=== PATIENT | female | born 1945 | race Caucasian/White ===

== ENCOUNTER → 2017-11-02 10:46 | Outpatient (CLI) | payer MEDICARE, SELFPAY ==
--- NOTE | 2017-11-03 05:47 | LEAS_ITS ---
Arterial Study - Arterial Study Arterial Study: Bilateral lower extremity noninvasive arterial exam at rest Patient with nonhealing wound to the right lower extremity Right lower extremity Right low thigh index is 0.95. Calf index is 0.71. The right PT and DP ankle- brachial indices at rest are 0.62 and 0.6 respectively with a digital index of only 0.39. Doppler waveforms of the right posterior tibial and dorsalis pedis are biphasic. The volume pulse recordings do not demonstrate amplification the calf. The ankle waveforms are moderately depressed and the digital waveforms significantly depressed Left lower extremity At rest the left low thigh index is 0.96. Calf index is 0.74. The left PT and DP ankle-brachial indices at rest are 0.680.62 respectively again with a low digital index of 0.33. The left posterior tibial and dorsalis pedis waveforms are biphasic. The volume pulse recordings do not demonstrate amplification the calf. The ankle waveforms are moderately depressed. The digital waveforms are significantly depressed. Impression Findings suggest mild iliofemoral inflow disease bilaterally. Additional findings consistent with significant stenosis or occlusion of bilateral superficial femoral arteries. The resting indices are within the range of vascular claudication however the digital indices and waveforms are significantly depressed consistent with critical ischemia possibly complicated by distal small vessel disease. Erick Coronel M.D., F.A.C.S.
== END ==
PROVIDERS: Family Provider Family Medicine; PCP Family Medicine; Visit Provider Podiatrist
DX: I73.9 Peripheral vascular disease, unspecified (principal); L97.919 Non-pressure chronic ulcer of unspecified part of right lower leg with unspecified severity
CPT/HCPCS: 93923

== ENCOUNTER 2017-11-14 21:51 | Inpatient (IN) | payer MEDICARE, SELFPAY ==
[2017-11-14] VITALS (8 sets, daily range): BP systolic 130–156; BP diastolic 65–78; PULSE 86–117; RESP 16–22; TEMP 36.9–37.1; O2SAT 95–98; BMI 32.9
--- NOTE | 2017-11-14 22:11 | EKG12_ITS ---
Test Reason : CP Blood Pressure : / mmHG Vent. Rate : 116 BPM Atrial Rate : 116 BPM P-R Int : 000 ms QRS Dur : 104 ms QT Int : 346 ms P-R-T Axes : 000 -26 108 degrees QTc Int : 480 ms Atrial fibrillation with Premature ventricular complexes Left ventricular hypertrophy with repolarization abnormality Abnormal ECG Confirmed by TORSTEN UGARTE, MIKE ([id number]), editor producer BERKLEY RAMON ([id number]) on 11/16/2017 1:20:29 PM Referred By: GUILLAUME Confirmed By:MIKE SARMIENTO MD
--- NOTE | 2017-11-14 22:15 | RAD_ITS ---
STUDY: X-RAY CHEST REASON FOR EXAM: Female, 72 years old. Palpitations TECHNIQUE: Single AP portable view of the chest. COMPARISON: 08/02/2015. FINDINGS: Normal lung volumes. There is diffuse hazy density and prominence of the bronchovascular markings in both lungs, most consistent with congestive failure and pulmonary edema.. No focal infiltrates. There is moderate cardiac enlargement. Normal mediastinum and derrick. There is prominence of the pulmonary hilar arteries and peripheral pulmonary arteries, consistent with congestive heart failure (CHF). Normal visualized aortic arch and descending thoracic aorta. Normal visualized thoracic spine. Normal visualized ribs, clavicles, and shoulders. There is no demonstrated abnormality of the visualized soft tissue structures of the upper abdomen. RAD/Chest 1 View (Portable) IMPRESSION: Mild congestion and pulmonary edema. Central vascular congestion. Moderate cardiomegaly. Electronically Signed: Juan Alberto Bello MD at 22:49 EDT , Service support ,
[2017-11-14 22:17] LABS: Absolute Lymphocyte Count 3.28 X10^3/ul (0.83-4.51); Absolute Neutrophil Count 6.6 X10^3/uL (2.0-7.7); Basophil# 0.04 X10^3/uL; Basophil% 0.4 % (0-1); Eosinophil# 0.26 X10^3/uL; Eosinophils% 2.4 % (0-5); Hematocrit 34.2 % (37-47); Hemoglobin 11.5 g/dl (12.0-15.0); Lymphocyte # 3.28 X10^3/ul (4.0); Lymphocyte % 29.7 % (19-41); Mean Corp Hgb Conc 33.6 g/gl (32-36); Mean Corpuscular Hgb 30.2 pg (27.0-32.0); Mean Corpuscular Volume 89.8 fL (81-99); Mean Platelet Vol. 10.2 fl (6.2-12.0); Monocyte# 0.86 X10^3/uL; Monocyte% 7.8 % (0-10); Neutrophil # 6.59 X10^3/uL (2.7-7.7); Neutrophil % 59.4 % (47-70); POSITIVE COUNT NO; POSITIVE DIFFERENTIAL NO; POSITIVE MORPHOLOGY NO; Platelet Count 253 K/mm3 (150-450); RBC Distribution Width CV 15.2 % (11.6-14.6); RBC Distribution Width SD 49.3 fl (35.1-43.9); Red Blood Count 3.81 M/mm3 (4.2-5.4); White Blood Count 11.1 K/mm3 (4.4-11.0)
--- NOTE | 2017-11-14 22:35 | ED.VISSUMM ---
- ER Visit Summary Date of Service: 11/14/17 Chief Complaint: Palpitations and accelerated heart rate with exertional dyspnea History of Present Illness: The patient is a 72 F history of prior CHF and aortic valve replaced on Xarelto. She also has recently been diagnosed with peripheral vascular disease and carotid disease. Patient states this afternoon she walks some steps in an area restaurant and became short of breath. She denies any chest pain. No hemoptysis. Her and her have recently driven back from [place] about a month ago she has by lateral ankle edema. No prior history of PE or DVT and again she is on blood thinners. Physical Examination: Well appearing older female. Vital signs are stable she is tachycardic at 117 pulse ox is 95% on room air no signs of hypoxia. H EENT exam is unremarkable. Neck nontender no lymphadenopathy. Lungs clear to auscultation bilaterally. Heart tachycardic rate about 117. Abdomen is soft and nontender. Normal bowel sounds no peritoneal signs. She is moving all 4 extremities. Calves are nontender. She has trace ankle edema bilaterally. Equal and symmetrical. Neurologically she is awake and alert without focal motor deficits. Test Results: Chest x-ray shows borderline cardiomegaly with what looks like pulmonary edema. Read both by myself the radiologist. CBC shows chronic anemia hemoglobin 11.5. BMP is unremarkable. Bone is normal. D-dimer is normal. BNP is 162. EKG is a tachycardia with most like an accelerated junctional rhythm with PVCs. Emergency Department Course and Treatment: She with tachycardia, exertional dyspnea and ankle edema. Treatment Plan: Patient was ambulated pulse ox stayed around 95% with her heart rate of 115. I do think this patient deserves additional evaluation. She has some type of dysrhythmia and is is junctional versus another etiology. She has exertional dyspnea. She thinks she would warrant have an echocardiogram. She also be given a dose of Lasix for CHF. Spoken to the hospitalist and she will be down to evaluate the patient for admission. Disposition: Admission Impression: Dysrhythmia secondary to acute junctional tachycardia Exertional dyspnea Anticoagulated on Xarelto CHF This note was generated with [email or web address] dictation software. It may contain incorrect words, spelling, and punctuation that were not noted in review of the chart prior to signing ED Disposition - Plan for ED Patient: Chief Complaint: Palpitations Referrals: Mars Hernandez MD [Primary Care Provider] -
[2017-11-14 22:36] LABS: D-Dimer Quantitative (DVT/PE) 0.39 FEU/ug/m (0.27-0.49)
[2017-11-14 22:43] LABS: BNP,B-Type NATRIURETIC PEPTIDE 162.2 pg/mL (0-100)
[2017-11-14 22:44] LABS: Anion Gap 9 (5-15); BUN 18 mg/dL (7-18); BUN/Creat Ratio 15.3 RATIO (10-20); Calcium,Total 8.6 mg/dL (8.5-10.1); Chloride 102 mmol/L (98-107); Creatinine, Serum 1.18 mg/dL (0.55-1.02); EST Glomerular Filtration Rate 48 mL/min (>60); Est Glom Filt Rate - Afr Amer 58 mL/min (>60); Estimated Creatinine Clearance 34.08 ml/min; Glucose 258 mg/dL (74-106); Potassium 4.3 mmol/L (3.5-5.1); Sodium Level 137 mmol/L (136-145); Thyroid Stim Hormone (TSH) 1.51 uIU/mL (0.358-3.74)
--- NOTE | 2017-11-14 23:03 | PCM.HP.STD ---
Problem List (1) Obesity (BMI 30.0-34.9) Status: Chronic (2) PAF (paroxysmal atrial fibrillation) Status: Chronic (3) PAD (peripheral artery disease) Status: Chronic (4) HLD (hyperlipidemia) Status: Chronic Qualifiers: Hyperlipidemia type: unspecified Qualified Code(s): E78.5 - Hyperlipidemia, unspecified (5) Diabetes mellitus type 2 in obese Status: Chronic (6) H/O aortic valve replacement Status: Chronic Comment: 1996 homograftcadaveric (7) HTN (hypertension) Status: Chronic Qualifiers: Hypertension type: essential hypertension Qualified Code(s): I10 - Essential (primary) hypertension (8) Anxiety Status: Chronic (9) Brain aneurysm Status: Chronic Comment: s/p stent and coil placement. (10) CHF exacerbation Status: Acute Qualifiers: Heart failure type: unspecified Qualified Code(s): I50.9 - Heart failure, unspecified (11) Cardiac arrhythmia Status: Acute Qualifiers: Arrhythmia type: unspecified cardiac arrhythmia Qualified Code(s): I49.9 - Cardiac arrhythmia, unspecified History of Present Illness Date of Admission: 11/14/17 Chief Complaint: Palpitations, Dyspnea The patient is a 72 y/o F w/ PMHx: Chronic Normocytic Anemia (Baseline Hgb 11), PAF on anticoagulation w/ hx cardioversion prior sucessfully, PVD/PAD, Carotid Disease, Hx Brain Aneurysm s/p stent and coil, HTN, HLD, 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 Her and her lives the [place] in [place] and return to [place] following. She notes following w/ Dr. Chung; however, he is noted to be leaving the [facility] and she is unsure of whom she will see after. In the ED work-up included T 98.8, heart rate 115, BP 156/78, respiratory rate 22, 95% on room air, CBC with WBC 11.1, hemoglobin 11.5, platelet 253 without shift, d-dimer 0.39, BMP with BUN/creatinine 18/1.18, glucose 258, troponin 0 0.22, BNP 162.2, TSH 1.51, chest x-ray with evidence of mild congestion and pulmonary edema, central vascular congestion, moderate cardiomegaly, EKG w/ ? accelerated junctional w/ PVC. In the ED patient administered lasix 40 mg IV x 1. Past Medical History Past Medical History (Chronic Problems): Chronic Problems (Last Updated 07/01/17 @ 13:45 by Vielka Welch) Obesity (BMI 30.0-34.9) (Chronic) PAF (paroxysmal atrial fibrillation) (Chronic) PAD (peripheral artery disease) (Chronic) Family history of brain aneurysm (Chronic) Anxiety (Chronic) Brain aneurysm (Chronic) s/p stent and coil placement. HLD (hyperlipidemia) (Chronic) Diabetes mellitus type 2 in obese (Chronic) H/O aortic valve replacement (Chronic) 1996 homograftcadaveric HTN (hypertension) (Chronic) Allergies No Known Allergies Allergy (Verified 11/14/17 21:52) Home Medications: Ambulatory Orders Medication Instructions Recorded Amlodipine [Norvasc] 5 mg PO DAILY 07/13/15 Citrucel 1 tab PO BID 07/13/15 Lisinopril [Zestril] 40 mg PO DAILY 07/13/15 Multivitamin [Daily Multiple 1 ea PO DAILY 07/13/15 Vitamin] Omeprazole [Prilosec] 20 mg PO DAILY 07/13/15 Rivaroxaban [Xarelto] 20 mg PO DAILY 07/13/15 Simvastatin [Zocor] 40 mg PO QHS 07/13/15 Sotalol HCl [Sotalol] 40 mg PO DAILY 07/13/15 Sotalol HCl [Sotalol] 80 mg PO QHS 07/13/15 Ubidecarenone [Coq10] 50 mg PO DAILY 07/13/15 Vitamin E 1,000 unit PO DAILY 07/13/15 aspirin 81 mg tablet,delayed 81 mg PO QDAY 07/01/17 release calcium carbonate-vitamin D3 600 400 unit PO DAILY 07/01/17 mg (1,500 mg)-400 unit capsule cholestyramine-aspartame 4 gram 4 g PO BID ea 07/01/17 oral powder for susp in a packet magnesium 250 mg tablet 250 mg PO DAILY 07/01/17 Surgical History: - - Aortic valve replacement bioprosthetic, cadaveric valve, hysterectomy, brain aneurysm coiling and stenting, 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 Alcohol: Occasional Drugs: None - *Family History Maternal History Items: - - Patient notes a maternal family history of valvular heart disease. Paternal History Items: - - Patient notes a paternal family history of coronary artery disease, fatal [place] at age 53. Review of Systems Constitutional: Reports: Fatigue. Denies: Chills, Fever, Weight Change HEENT: Denies: Head Aches, Sinus Congestion, Sinus Drainage Cardiovascular: Reports: Edema, Palpitations. Denies: Chest Pain, Chest Pressure, Chest Tightness, Heaviness, Light Headedness, Orthopnea, Syncope Respiratory: Reports: Shortness of Breath, Shortness of breath at rest, Shortness of breath upon exertion. Denies: Cough, Sputum production, Wheezing Gastrointestinal: Denies: Abdominal Pain, Nausea, Vomiting Genitourinary: Denies: Dysuria Musculoskeletal: Denies: Joint Pain, Joint Tenderness Skin: Reports: Skin Changes. Denies: Rash, Wounds Neurological: Denies: Numbness, Tingling, Focal weakness Psychiatric: Reports: Anxiety. Denies: Depression, Homicidal Ideations, Suicidal Ideations Hematologic/ Lymphatic: Reports: Anemia. Denies: Easy Bruising, Easy Bleeding VTE Information - Inpt Only VTE Present on Admission: No VTE Mechan Device Prophylaxis: SCD's VTE Pharm Prophylaxis ordered?: No Reason prophylaxis not ordered:: Treatment Not Indicated Patient Problems: Active and Suspected Problems (Last Updated 07/01/17 @ 13:45 by Vielka Welch) CHF exacerbation (Acute) Cardiac arrhythmia (Acute) Subjective: Seated upright in the ED bed, fatigued appearance, NAD. Objective: Physical Examination: General: awake, alert, oriented x 3 and cooperative, seated upright in the ED bed in no apparent distress. Skin: normal color, turgor, no icterus, cyanosis except R ankle/distal faust medial recent bx wound. HEENT: AT/NC, EOMI, PERRLA, MMM, no carotid bruits, + JVD noted. Lungs: Diminished BS BL, > bases, moderate effort, no rales, ronchi or wheezing. Heart: Irregular irregular; no gallop, rub audible, SM. Abdomen: soft, obese, NTTP, ND, normal BS, no HSM. Extremities: no cyanosis, clubbing, mild BL ankle 1+. Neurological: patient awake, alert, oriented x 3; cognitive function intact; pupils equally reactive to light and accomodation; cranial nerves II-XII grossly normal, moving all 4 extremities, no focal deficits, strength mild to moderately globally decreased. Psychiatric: affect appears normal, no acute evidence of depressive or anxiety feelings. - Physical Exam Vital Signs Temp Pulse Resp BP Pulse Ox 98.8 F 86 16 145/73 H 98 11/14/17 21:52 11/14/17 22:53 11/14/17 22:53 11/14/17 22:53 11/14/17 22:53 Oxygen Delivery Method Room Air Weight: 180 lb 1.883 oz Body Mass Index (BMI) 32.9 Laboratory Tests Past 24 Hrs 11/14/17 11/14/17 11/14/17 22:00 22:00 22:00 WBC 11.1 H RBC 3.81 L Hgb 11.5 L Hct 34.2 L MCV 89.8 MCH 30.2 MCHC 33.6 RDW 15.2 H RDW Differential 49.3 H Plt Count 253 MPV 10.2 Immature Gran % (Auto) 0.300 Neut % (Auto) 59.4 Lymph % (Auto) 29.7 [place] % (Auto) 7.8 Eos % (Auto) 2.4 Baso % (Auto) 0.4 Absolute Neuts (auto) 6.6 Absolute Lymphs (auto) 3.28 Total Counted Not Reportable D-Dimer Quant (PE/DVT) 0.39 Sodium 137 Potassium 4.3 Chloride 102 Carbon Dioxide 26.0 Anion Gap 9 BUN 18 Creatinine 1.18 H Estim Creat Clear Calc 34.08 Est GFR (MDRD) Af Amer 58 L Est GFR (MDRD) Non-Af 48 L BUN/Creatinine Ratio 15.3 Glucose 258 H Calcium 8.6 Troponin I 0.022 B-Natriuretic Peptide TSH 1.51 11/14/17 22:00 WBC RBC Hgb Hct MCV MCH MCHC RDW RDW Differential Plt Count MPV Immature Gran % (Auto) Neut % (Auto) Lymph % (Auto) [place] % (Auto) Eos % (Auto) Baso % (Auto) Absolute Neuts (auto) Absolute Lymphs (auto) Total Counted D-Dimer Quant (PE/DVT) Sodium Potassium Chloride Carbon Dioxide Anion Gap BUN Creatinine Estim Creat Clear Calc Est GFR (MDRD) Af Amer Est GFR (MDRD) Non-Af BUN/Creatinine Ratio Glucose Calcium Troponin I B-Natriuretic Peptide 162.2 H TSH Assessment/Plan Active and Suspected Problems (Last Updated 07/01/17 @ 13:45 by Vielka Welch) CHF exacerbation (Acute) Cardiac arrhythmia (Acute) The patient is a 72 y/o F w/ PMHx: Chronic Normocytic Anemia (Baseline Hgb 11), PAF on anticoagulation w/ hx cardioversion prior sucessfully, PVD/PAD, Carotid Disease, Hx Brain Aneurysm s/p stent and coil, HTN, HLD, 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 (1) Mild Acute Decompensated CHF, Unclear Type: CXR obtained in the ED w/ mild congestion. Patient administered IV lasix in the ED, will admit to PCU, maintain on cardiac telemetry obtain cardiac enzyme series, obtain serial EKGs, continue gentle IV lasix diuresis, monitor I/Os, maintain on intake restriction, continue medical therapy w/ xarelto, statin, ACEI, on sotaolol as noted. TSH normal. Will obtain magnesium level. Will obtain ECHO. Given history may also need to consider future stress testing. Cardiology consulted, pending. (2) Cardiac arrhythmia, Junctional versus Paroxsymal atrial fibrillation: EKG in ED w/ ? accelerated junctional versus atrial fibrillation, rate only 120s. Will maintain on telemetry, obtain cardiac enzyme serial set, obtain magnesium level, obtain ECHO, TSH level normal. Continue home xarelto total all regimen. (3) Hypertension: Continue home regimen including Norvasc, lisinopril, PRN hydralazine. (4) Hyperlipidemia: Continue home statin regimen. AM FLP. (5) PVD/PAD, Carotid Disease: Following w/ Dr. Coronel with planned upcoming visit secondary to recent vascular evaluation for history of ulcer to RLE x ~ 4 months, now confirmed carcinoma, maintain on xarelto, statin, BP regimen as noted. (6) Chronic normocytic anemia: Admission hemoglobin 11.5, baseline 10-11, stable, trend. (7) Diabetes mellitus type II: Regimen not listed, obtain HgBA1c, ADA diet, accu checks w/ ISS. (8) Valvular Heart Disease: She rheumatic fever in youth, s/p AVR w/ homograft-cadaveric, ECHO pending. (9) RLE Medial Distal Faust/Ankle Ulcer, Carcinoma: Recent evaluation per Dr. Kyle for ulcer ongoing x ~ 4 months, recent Bx w/ carcinoma patient notes w/ pending dermatology intervention. (10) Obesity: Weight loss and lifestyle changes encouraged. (11) Hx Brain Aneurysm: s/p stent and coil, stable. (12) GERD: PPI. (13) DVT prophylaxis: SCDs, Xarelto. Code Visit Inpatient E&M: [id number] Init Hosp L3
--- NOTE | 2017-11-14 23:17 | HP.PCM_ITS ---
Problem List (1) Obesity (BMI 30.0-34.9) Status: Chronic (2) PAF (paroxysmal atrial fibrillation) Status: Chronic (3) PAD (peripheral artery disease) Status: Chronic (4) HLD (hyperlipidemia) Status: Chronic Qualifiers: Hyperlipidemia type: unspecified Qualified Code(s): E78.5 - Hyperlipidemia , unspecified (5) Diabetes mellitus type 2 in obese Status: Chronic (6) H/O aortic valve replacement Status: Chronic Comment: 1997 homograft?cadaveric (7) HTN (hypertension) Status: Chronic Qualifiers: Hypertension type: essential hypertension Qualified Code(s): I10 - Essential (primary) hypertension (8) Anxiety Status: Chronic (9) Brain aneurysm Status: Chronic Comment: s/p stent and coil placement. (10) CHF exacerbation Status: Acute Qualifiers: Heart failure type: unspecified Qualified Code(s): I50.9 - Heart failure, unspecified (11) Cardiac arrhythmia Status: Acute Qualifiers: Arrhythmia type: unspecified cardiac arrhythmia Qualified Code(s): I49.9 - Cardiac arrhythmia, unspecified History of Present Illness Date of Admission: 11/14/17 Chief Complaint: Palpitations, Dyspnea The patient is a 72 y/o F w/ PMHx: Chronic Normocytic Anemia (Baseline Hgb 11), PAF on anticoagulation w/ hx cardioversion prior sucessfully, PVD/PAD, Carotid Disease, Hx Brain Aneurysm s/p stent and coil, HTN, HLD, Valvular 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 ED on 11/14/17 with history of ~ 1 month progressively worsening dyspnea, worsened with exertional with no marked weight change, but mild BL LE edema with no associated chest pain or pressure in addition to onset on day of ED presentation palpitations, recently returned from [place] ~ 1 month prior. Her and her lives the [place] in [place] and return to [place] following. She notes following w/ Dr. Chung; however, he is noted to be leaving the [facility] and she is unsure of whom she will see after. In the ED work- up included T 98.8, heart rate 115, BP 156/78, respiratory rate 22, 95% on room air, CBC with WBC 11.1, hemoglobin 11.5, platelet 253 without shift, d-dimer 0.39, BMP with BUN/creatinine 18/1.18, glucose 258, troponin 0 0.22, BNP 162.2, TSH 1.51, chest x-ray with evidence of mild congestion and pulmonary edema, central vascular congestion, moderate cardiomegaly, EKG w/ ? accelerated junctional w/ PVC. In the ED patient administered lasix 40 mg IV x 1. Past Medical History Past Medical History (Chronic Problems): Chronic Problems (Last Updated 07/01/17 @ 13:45 by Vielka Welch) Obesity (BMI 30.0-34.9) (Chronic) PAF (paroxysmal atrial fibrillation) (Chronic) PAD (peripheral artery disease) (Chronic) Family history of brain aneurysm (Chronic) Anxiety (Chronic) Brain aneurysm (Chronic) s/p stent and coil placement. HLD (hyperlipidemia) (Chronic) Diabetes mellitus type 2 in obese (Chronic) H/O aortic valve replacement (Chronic) 1996 homograft?cadaveric HTN (hypertension) (Chronic) Allergies No Known Allergies Allergy (Verified 11/14/17 21:52) Home Medications: Ambulatory Orders Medication Instructions Recorded Amlodipine [Norvasc] 5 mg PO DAILY 07/13/15 Citrucel 1 tab PO BID 07/13/15 Lisinopril [Zestril] 40 mg PO DAILY 07/13/15 Multivitamin [Daily Multiple 1 ea PO DAILY 07/13/15 Vitamin] Omeprazole [Prilosec] 20 mg PO DAILY 07/13/15 Rivaroxaban [Xarelto] 20 mg PO DAILY 07/13/15 Simvastatin [Zocor] 40 mg PO QHS 07/13/15 Sotalol HCl [Sotalol] 40 mg PO DAILY 07/13/15 Sotalol HCl [Sotalol] 80 mg PO QHS 07/13/15 Ubidecarenone [Coq10] 50 mg PO DAILY 07/13/15 Vitamin E 1,000 unit PO DAILY 07/13/15 aspirin 81 mg tablet,delayed 81 mg PO QDAY 07/01/17 release calcium carbonate-vitamin D3 600 400 unit PO DAILY 07/01/17 mg (1,500 mg)-400 unit capsule cholestyramine-aspartame 4 gram 4 g PO BID ea 07/01/17 oral powder for susp in a packet magnesium 250 mg tablet 250 mg PO DAILY 07/01/17 Surgical History: - - Aortic valve replacement bioprosthetic, cadaveric valve, hysterectomy, brain aneurysm coiling and stenting, 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 Alcohol: Occasional Drugs: None - *Family History Maternal History Items: - - Patient notes a maternal family history of valvular heart disease. Paternal History Items: - - Patient notes a paternal family history of coronary artery disease, fatal PA at age 53. Review of Systems Constitutional: Reports: Fatigue. Denies: Chills, Fever, Weight Change HEENT: Denies: Head Aches, Sinus Congestion, Sinus Drainage Cardiovascular: Reports: Edema, Palpitations. Denies: Chest Pain, Chest Pressure, Chest Tightness, Heaviness, Light Headedness, Orthopnea, Syncope Respiratory: Reports: Shortness of Breath, Shortness of breath at rest, Shortness of breath upon exertion. Denies: Cough, Sputum production, Wheezing Gastrointestinal: Denies: Abdominal Pain, Nausea, Vomiting Genitourinary: Denies: Dysuria Musculoskeletal: Denies: Joint Pain, Joint Tenderness Skin: Reports: Skin Changes. Denies: Rash, Wounds Neurological: Denies: Numbness, Tingling, Focal weakness Psychiatric: Reports: Anxiety. Denies: Depression, Homicidal Ideations, Suicidal Ideations Hematologic/ Lymphatic: Reports: Anemia. Denies: Easy Bruising, Easy Bleeding VTE Information - Inpt Only VTE Present on Admission: No VTE Mechan Device Prophylaxis: SCD's VTE Pharm Prophylaxis ordered?: No Reason prophylaxis not ordered:: Treatment Not Indicated Patient Problems: Active and Suspected Problems (Last Updated 07/01/17 @ 13:45 by Vielka Welch) CHF exacerbation (Acute) Cardiac arrhythmia (Acute) Subjective: Seated upright in the ED bed, fatigued appearance, NAD. Objective: Physical Examination: General: awake, alert, oriented x 3 and cooperative, seated upright in the ED bed in no apparent distress. Skin: normal color, turgor, no icterus, cyanosis except R ankle/distal faust medial recent bx wound. HEENT: AT/NC, EOMI, PERRLA, MMM, no carotid bruits, + JVD noted. Lungs: Diminished BS BL, > bases, moderate effort, no rales, ronchi or wheezing. Heart: Irregular irregular; no gallop, rub audible, SM. Abdomen: soft, obese, NTTP, ND, normal BS, no HSM. Extremities: no cyanosis, clubbing, mild BL ankle 1+. Neurological: patient awake, alert, oriented x 3; cognitive function intact; pupils equally reactive to light and accomodation; cranial nerves II-XII grossly normal, moving all 4 extremities, no focal deficits, strength mild to moderately globally decreased. Psychiatric: affect appears normal, no acute evidence of depressive or anxiety feelings. - Physical Exam Vital Signs Temp Pulse Resp BP Pulse Ox 98.8 F 86 16 145/73 H 98 11/14/17 21:52 11/14/17 22:53 11/14/17 22:53 11/14/17 22:53 11/14/17 22:53 Oxygen Delivery Method Room Air Weight: 180 lb 1.883 oz Body Mass Index (BMI) 32.9 Laboratory Tests Past 24 Hrs 11/14/17 11/14/17 11/14/17 22:00 22:00 22:00 WBC 11.1 H RBC 3.81 L Hgb 11.5 L Hct 34.2 L MCV 89.8 MCH 30.2 MCHC 33.6 RDW 15.2 H RDW Differential 49.3 H Plt Count 253 MPV 10.2 Immature Gran % (Auto) 0.300 Neut % (Auto) 59.4 Lymph % (Auto) 29.7 [place] % (Auto) 7.8 Eos % (Auto) 2.4 Baso % (Auto) 0.4 Absolute Neuts (auto) 6.6 Absolute Lymphs (auto) 3.28 Total Counted Not Reportable D-Dimer Quant (PE/DVT) 0.39 Sodium 137 Potassium 4.3 Chloride 102 Carbon Dioxide 26.0 Anion Gap 9 BUN 18 Creatinine 1.18 H Estim Creat Clear Calc 34.08 Est GFR (MDRD) Af Amer 58 L Est GFR (MDRD) Non-Af 48 L BUN/Creatinine Ratio 15.3 Glucose 258 H Calcium 8.6 Troponin I 0.022 B-Natriuretic Peptide TSH 1.51 11/14/17 22:00 WBC RBC Hgb Hct MCV MCH MCHC RDW RDW Differential Plt Count MPV Immature Gran % (Auto) Neut % (Auto) Lymph % (Auto) [place] % (Auto) Eos % (Auto) Baso % (Auto) Absolute Neuts (auto) Absolute Lymphs (auto) Total Counted D-Dimer Quant (PE/DVT) Sodium Potassium Chloride Carbon Dioxide Anion Gap BUN Creatinine Estim Creat Clear Calc Est GFR (MDRD) Af Amer Est GFR (MDRD) Non-Af BUN/Creatinine Ratio Glucose Calcium Troponin I B-Natriuretic Peptide 162.2 H TSH Assessment/Plan Active and Suspected Problems (Last Updated 07/01/17 @ 13:45 by Vielka Welch) CHF exacerbation (Acute) Cardiac arrhythmia (Acute) The patient is a 72 y/o F w/ PMHx: Chronic Normocytic Anemia (Baseline Hgb 11), PAF on anticoagulation w/ hx cardioversion prior sucessfully, PVD/PAD, Carotid Disease, Hx Brain Aneurysm s/p stent and coil, HTN, HLD, Valvular 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 ED on 11/14/17 with history of ~ 1 month progressively worsening dyspnea, worsened with exertional with no marked weight change, but mild BL LE edema with no associated chest pain or pressure in addition to onset on day of ED presentation palpitations. (1) Mild Acute Decompensated CHF, Unclear Type: CXR obtained in the ED w/ mild congestion. Patient administered IV lasix in the ED, will admit to PCU, maintain on cardiac telemetry obtain cardiac enzyme series, obtain serial EKGs, continue gentle IV lasix diuresis, monitor I/Os, maintain on intake restriction , continue medical therapy w/ xarelto, statin, ACEI, on sotaolol as noted. TSH normal. Will obtain magnesium level. Will obtain ECHO. Given history may also need to consider future stress testing. Cardiology consulted, pending. (2) Cardiac arrhythmia, Junctional versus Paroxsymal atrial fibrillation: EKG in ED w/ ? accelerated junctional versus atrial fibrillation, rate only 120s. Will maintain on telemetry, obtain cardiac enzyme serial set, obtain magnesium level, obtain ECHO, TSH level normal. Continue home xarelto total all regimen. (3) Hypertension: Continue home regimen including Norvasc, lisinopril, PRN hydralazine. (4) Hyperlipidemia: Continue home statin regimen. AM FLP. (5) PVD/PAD, Carotid Disease: Following w/ Dr. Coronel with planned upcoming visit secondary to recent vascular evaluation for history of ulcer to RLE x ~ 4 months, now confirmed carcinoma, maintain on xarelto, statin, BP regimen as noted. (6) Chronic normocytic anemia: Admission hemoglobin 11.5, baseline 10-11, stable , trend. (7) Diabetes mellitus type II: Regimen not listed, obtain HgBA1c, ADA diet, accu checks w/ ISS. (8) Valvular Heart Disease: She rheumatic fever in youth, s/p AVR w/ homograft- cadaveric, ECHO pending. (9) RLE Medial Distal Faust/Ankle Ulcer, Carcinoma: Recent evaluation per Dr. Kyle for ulcer ongoing x ~ 4 months, recent Bx w/ carcinoma patient notes w / pending dermatology intervention. (10) Obesity: Weight loss and lifestyle changes encouraged. (11) Hx Brain Aneurysm: s/p stent and coil, stable. (12) GERD: PPI. (13) DVT prophylaxis: SCDs, Xarelto. Code Visit Inpatient E&M: 11702 Init Hosp L3
[2017-11-14] MEDS: Furosemide 40 MG/4 ML Vial IV (23:28)
--- NOTE | 2017-11-14 23:45 | ECHOD_ITS ---
Reason For Study: ARRHYTHMIA Procedure This was a 2D Doppler, Color Flow transthoracic echocardiogram. Exam performed portable in patient room. Left Ventricle Normal LV size. Left ventricular systolic function is normal. The estimated ejection fraction is 55 %. Transmitral diastolic flow velocities suggest severe (stage 3) diastolic dysfunction. No regional wall motion abnormalities noted. Right Ventricle Normal RV size. Normal systolic function. Atria The left atrium is severely enlarged. The right atrium is mildly enlarged. Mitral Valve Bileaflet diffuse mitral valve thickening. Mild (1+) eccentric mitral valve insufficiency. Tricuspid Valve Normal tricuspid valve. Mild (1+) tricuspid valve insufficiency. Pulmonary artery systolic pressure is 45 mmHg. Mild pulmonary hypertension. Aortic Valve Peak aortic valve gradient 24 mmHg. Mean aortic valve gradient 12 mmHg. Mild (1+) eccentric aortic valve insufficiency. Stable homograft valve. Pulmonic Valve Normal pulmonic valve. Great Vessels Normal aortic root. The pulmonary artery is normal size. Normal inferior vena cava. Pericardium/Pleural No pericardial effusion. MMode/2D Measurements & Calculations LVIDd: 4.8 cm IVSd: 0.92 cm LVOT diam: 2.0 cm LVIDs: 3.5 cm LVPWd: 1.2 cm LVOT area: 3.2 cm2 RVDd: 3.7 cm FS: 26.9 % LAV(MOD-bp): 110.3 ml LA A4 area: 32.8 cm2 RA A4 area: 21.9 cm2 LAV(MOD-bp) Indexed: 61.5 ml/m2 LAV(MOD-sp2): 87.8 ml LAV(MOD-sp4): 132.7 ml Doppler Measurements & Calculations MV E max seferino: 194.4 cm/sec Lat Peak E' Seferino: 9.2 cm/sec Med Peak E' Seferino: 4.9 cm/sec MV A max seferino: 98.1 cm/sec E/E' lat: 21.1 E/E' med: 40.0 MV E/A: 2.0 MV V2 max: 211.0 cm/sec Ao V2 max: 240.9 cm/sec LV V1 max: 122.9 cm/sec MV max P.8 mmHg Ao max P.5 mmHg LV V1 max P.1 mmHg MV V2 mean: 113.7 cm/sec Ao V2 mean: 167.9 cm/sec LV V1 mean P.3 mmHg MV mean P.1 mmHg Ao mean P.5 mmHg LV V1 mean: 85.2 cm/sec MV V2 VTI: 44.5 cm Ao V2 VTI: 51.7 cm LV V1 VTI: 27.7 cm MVA(VTI): 2.0 cm2 LISBETH(I,D): 1.7 cm2 LISBETH(V,D): 1.6 cm2 SV(LVOT): 89.2 ml PA V2 max: 121.7 cm/sec PI end-d seferino: 139.6 cm/sec TR max seferino: 325.1 cm/sec TR max P.4 mmHg Interpretation Summary Normal LV size. Left ventricular systolic function is normal. The estimated ejection fraction is 55 %. Transmitral diastolic flow velocities suggest severe (stage 3) diastolic dysfunction Mild (1+) eccentric mitral valve insufficiency. Pulmonary artery systolic pressure is 45 mmHg. Mild pulmonary hypertension. Stable homograft valve Mean aortic valve gradient 12 mmHg. Mild (1+) eccentric aortic valve insufficiency. Ordering Physician: Marian Garcia Referring Physician: SALEEM HARPER Performed By: Sultana Moreno, MILEYCS, RVT
[2017-11-15] VITALS (16 sets, daily range): BP systolic 108–128; BP diastolic 44–63; PULSE 38–87; RESP 16–20; TEMP 36.7–37; O2SAT 93–99; BMI 33.9
[2017-11-15 00:48] LABS: Magnesium 1.7 mg/dL (1.6-2.6)
[2017-11-15 01:01] LABS: Bedside Glucose 232 mg/dL (70-110)
[2017-11-15 04:16] LABS: Hematocrit 31.4 % (37-47); Hemoglobin 10.6 g/dl (12.0-15.0); Mean Corp Hgb Conc 33.8 g/gl (32-36); Mean Corpuscular Hgb 30.6 pg (27.0-32.0); Mean Corpuscular Volume 90.8 fL (81-99); Mean Platelet Vol. 10.1 fl (6.2-12.0); Platelet Count 207 K/mm3 (150-450); RBC Distribution Width CV 14.9 % (11.6-14.6); RBC Distribution Width SD 48.3 fl (35.1-43.9); Red Blood Count 3.46 M/mm3 (4.2-5.4); White Blood Count 8.1 K/mm3 (4.4-11.0)
[2017-11-15 04:21] LABS: Scan Indicated on CBC? Y/N NO
[2017-11-15 04:27] LABS: Anion Gap 9 (5-15); BUN 18 mg/dL (7-18); Calcium,Total 8.4 mg/dL (8.5-10.1); Chloride 105 mmol/L (98-107); Cholesterol 97 mg/dL (200); Creatinine, Serum 1.06 mg/dL (0.55-1.02); EST Glomerular Filtration Rate 54 mL/min (>60); Est Glom Filt Rate - Afr Amer 66 mL/min (>60); Estimated Creatinine Clearance 34.46 ml/min; Glucose 146 mg/dL (74-106); High Density Lipoprotein 40 mg/dL; Potassium 3.6 mmol/L (3.5-5.1); Sodium Level 140 mmol/L (136-145); Triglycerides 134 mg/dL; Very Low Density Lipoprotein 27 mg/dL (5-40)
--- NOTE | 2017-11-15 05:55 | EKG12_ITS ---
Test Reason : AM EKG Blood Pressure : / mmHG Vent. Rate : 059 BPM Atrial Rate : 227 BPM P-R Int : 000 ms QRS Dur : 112 ms QT Int : 502 ms P-R-T Axes : 268 -12 033 degrees QTc Int : 496 ms Atrial flutter with variable A-V block Prolonged QT Abnormal ECG Confirmed by CASA UGARTE, CHALINO ([id number]), video editor BERKLEY RAMON ([id number] on 11/18/2017 1:13:44 PM Referred By: AIRAM Confirmed By:CHALINO CORMIER MD
[2017-11-15 07:06] LABS: Bedside Glucose 133 mg/dL (70-110)
[2017-11-15 07:13] LABS: Hemoglobin A1c 7.6 % (4.2-6.3)
--- NOTE | 2017-11-15 07:40 | PCM.CONS.C ---
Reason for Consult Date of Consultation: 11/15/17 Reason for Consultation: Shortness of breath and irregular heartbeat History of Present Illness: The patient is a 72 year old F with a history of aortic valve replacement in 1996 with a cadaveric homograft and a previous history of atrial fibrillation as well. She says that she had been doing quite well until yesterday when after she had gone to eat in a restaurant she felt that her heart was beating fast and she was also noted to be short of breath. She denied any chest pain or paroxysmal nocturnal dyspnea she has had a previous episodes of atrial fibrillation in the past for which she was cardioverted in [place]. She has been on anticoagulation. She has had no neck arm or jaw discomfort suggest angina no dizziness or diaphoresis no near syncope or syncope. She did present to the emergency room and was noted to have mildly elevated natruretic peptide and irregular heartbeat and she was admitted for further evaluation. This morning she says that she is feeling much better. [] Past Medical History Allergies/Adverse Reactions: Allergies No Known Allergies Allergy (Verified 11/14/17 21:52) Home Medications: Ambulatory Orders Medication Instructions Recorded Amlodipine [Norvasc] 10 mg PO QHS 07/13/15 Lisinopril [Zestril] 40 mg PO DAILY 07/13/15 Multivitamin [Daily Multiple 1 ea PO DAILY 07/13/15 Vitamin] Omeprazole [Prilosec] 20 mg PO DAILY 07/13/15 Rivaroxaban [Xarelto] 20 mg PO DAILY 07/13/15 Simvastatin [Zocor] 40 mg PO QHS 07/13/15 Sotalol HCl [Sotalol] 40 mg PO DAILY 07/13/15 Sotalol HCl [Sotalol] 80 mg PO QHS 07/13/15 Ubidecarenone [Coq10] 50 mg PO DAILY 07/13/15 aspirin 81 mg tablet,delayed 81 mg PO QDAY 07/01/17 release cholestyramine-aspartame 4 gram 4 g PO DAILY ea 07/01/17 oral powder for susp in a packet magnesium 250 mg tablet 250 mg PO DAILY 07/01/17 Cholecalciferol (Vitamin D3) 4,000 unit PO DAILY 11/15/17 [Vitamin D3] Furosemide [Lasix] 20 mg PO DAILY 11/15/17 Past Medical History (Chronic Problems): Chronic Problems (Last Updated 07/01/17 @ 13:45 by Vielka Welch) Obesity (BMI 30.0-34.9) (Chronic) PAF (paroxysmal atrial fibrillation) (Chronic) PAD (peripheral artery disease) (Chronic) Family history of brain aneurysm (Chronic) Anxiety (Chronic) Brain aneurysm (Chronic) s/p stent and coil placement. HLD (hyperlipidemia) (Chronic) Diabetes mellitus type 2 in obese (Chronic) H/O aortic valve replacement (Chronic) 1997 homograftcadaveric HTN (hypertension) (Chronic) Surgical History: - - Aortic valve replacement bioprosthetic, cadaveric valve, hysterectomy, brain aneurysm coiling and stenting, 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 Paternal History Items: - - Patient notes a paternal family history of coronary artery disease, fatal [place] at age 53. Lives: Spouse/ Significant Other Smoking Status: Former smoker Alcohol: Occasional Drugs: None Review of Systems - Review of Systems General: Denies: Fever, Night Sweats, Fatigue Cardiovascular: Reports: Shortness of Breath, Shortness of Breath at Rest, Shortness of Breath with Exertion. Denies: Chest Discomfort, Orthopnea, PND, Peripheral Edema, Palpitations, Lightheadedness, Dizziness, Near Syncope, Syncope Respiratory: Denies: Cough, Sputum Production, Hemoptysis Gastrointestinal: Denies: Hematemesis, Hematochezia, Melena Genitourinary: Denies: Dysuria, Hematuria Skin: Denies: Rash Subjectve: The patient seen and evaluated. Objective: Vital Signs Temp Pulse Resp BP Pulse Ox 98.4 F 65 16 108/44 L 95 11/15/17 05:33 11/15/17 05:33 11/15/17 05:33 11/15/17 05:33 11/15/17 05:33 Oxygen Delivery Method Room Air Weight: 172 lb 2.896 oz Body Mass Index (BMI) 33.9 Intake and Output for Last 24 Hours 11/13/17 11/14/17 11/15/17 23:59 23:59 23:59 Output Total 1200 / 1200 Balance -1200 / -1200 General: Awake, Alert, Oriented x 3 HEENT: PERRL, EOMI, Sclera Non Icteric Neck: Supple, Good ROM, No Lymph Node Enlargement Lungs: Clear to auscultation Cardiovascular: Irregular Rhythm, Normal S1, Normal S2, No Murmurs, No Rubs, No Gallops Vascular: No Carotid Bruits, Normal Femoral Pulses, Normal Radial Pulses, Normal Dorsalis Pedal Pulse, Normal Posterior Tibial Pulses Abdomen: Bowel Sounds Present, Soft, Non Tender, No HSM, No Organomegaly Extremities: No Cyanosis, No Clubbing, No edema Neurological: No Focal Motor or Sensory Deficit 11/15/17 01:00: Troponin I 0.024 11/15/17 04:00: Hemoglobin A1c 7.6 H 11/15/17 04:00: WBC 8.1, RBC 3.46 L, Hgb 10.6 L, Hct 31.4 L, MCV 90.8, MCH 30.6, MCHC 33.8, RDW 14.9 H, RDW Differential 48.3 H, Plt Count 207, MPV 10.1 11/15/17 04:00: Sodium 140, Potassium 3.6, Chloride 105, Carbon Dioxide 26.0, Anion Gap 9, BUN 18, Creatinine 1.06 H, Est GFR (MDRD) Af Amer 66, Est GFR (MDRD) Non-Af 54 L, BUN/Creatinine Ratio 17.0, Glucose 146 H, Calcium 8.4 L, Troponin I < 0.015, Triglycerides 134, Cholesterol 97, LDL Cholesterol 30, VLDL Cholesterol 27, HDL Cholesterol 40 Rhythm: EKG: Atrial fibrillation with a controlled ventricular response rate Assessment/Plan 1. Congestive heart failure acute-probable diastolic. She presents with shortness of breath with an irregular fast heartbeat and an elevated natruretic peptide level and features of congestive heart failure on the chest x-ray. My recommendation at this time will be to continue with diuresis and obtain an echocardiogram to assess her left ventricular function and characterize the above. The likely etiology is secondary to the paroxysmal atrial fibrillation. I do not think this is secondary to valvular dysfunction though this needs to be evaluated as well. 2. Atrial fibrillation. Patient appears to be therapeutically anticoagulated on Xarelto and also on sotalol. After she is diuresed and her heart rate controlled on the sotalol we may consider DC cardioversion prior to discharge. 3. Valvular heart disease. She does have a history of valvular heart disease status post aortic valve homograft implantation. My recommendation would be for us to reevaluate her with the echocardiogram. Her valve is 21 years old and at this time I do not hear any significant murmur which may be contributing to her current issues. However this would need to be evaluated further. 4. Abnormal cardiac enzymes. She does have mildly abnormal cardiac enzymes. It may be prudent to obtain a pharmacologic myocardial perfusion stress test to exclude obstructive coronary disease as a potential etiology. She does have evidence of peripheral vascular disease as well as carotid disease. In the meantime she will continue with risk factor modification. 5. Peripheral vascular disease. She does have evidence of peripheral vascular disease and will continue to follow with the vascular surgeon. I do not think that this is playing a role in her current issues here at this time. She will however continue with aggressive risk factor modification. 6. Hypertension. She does have a history of hypertension well-controlled on the current medical therapy which will also be continued. Thank you for allowing me to participate in the care of your patient. Please don't hesitate to call if any issues arise
--- NOTE | 2017-11-15 07:47 | CON.PCM_ITS ---
Reason for Consult Date of Consultation: 11/15/17 Reason for Consultation: Shortness of breath and irregular heartbeat History of Present Illness: The patient is a 72 year old F with a history of aortic valve replacement in 1996 with a cadaveric homograft and a previous history of atrial fibrillation as well. She says that she had been doing quite well until yesterday when after she had gone to eat in a restaurant she felt that her heart was beating fast and she was also noted to be short of breath. She denied any chest pain or paroxysmal nocturnal dyspnea she has had a previous episodes of atrial fibrillation in the past for which she was cardioverted in [place]. She has been on anticoagulation. She has had no neck arm or jaw discomfort suggest angina no dizziness or diaphoresis no near syncope or syncope. She did present to the emergency room and was noted to have mildly elevated natruretic peptide and irregular heartbeat and she was admitted for further evaluation. This morning she says that she is feeling much better. [] Past Medical History Allergies/Adverse Reactions: Allergies No Known Allergies Allergy (Verified 11/14/17 21:52) Home Medications: Ambulatory Orders Medication Instructions Recorded Amlodipine [Norvasc] 10 mg PO QHS 07/13/15 Lisinopril [Zestril] 40 mg PO DAILY 07/13/15 Multivitamin [Daily Multiple 1 ea PO DAILY 07/13/15 Vitamin] Omeprazole [Prilosec] 20 mg PO DAILY 07/13/15 Rivaroxaban [Xarelto] 20 mg PO DAILY 07/13/15 Simvastatin [Zocor] 40 mg PO QHS 07/13/15 Sotalol HCl [Sotalol] 40 mg PO DAILY 07/13/15 Sotalol HCl [Sotalol] 80 mg PO QHS 07/13/15 Ubidecarenone [Coq10] 50 mg PO DAILY 07/13/15 aspirin 81 mg tablet,delayed 81 mg PO QDAY 07/01/17 release cholestyramine-aspartame 4 gram 4 g PO DAILY ea 07/01/17 oral powder for susp in a packet magnesium 250 mg tablet 250 mg PO DAILY 07/01/17 Cholecalciferol (Vitamin D3) 4,000 unit PO DAILY 11/15/17 [Vitamin D3] Furosemide [Lasix] 20 mg PO DAILY 11/15/17 Past Medical History (Chronic Problems): Chronic Problems (Last Updated 07/01/17 @ 13:45 by Vielka Welch) Obesity (BMI 30.0-34.9) (Chronic) PAF (paroxysmal atrial fibrillation) (Chronic) PAD (peripheral artery disease) (Chronic) Family history of brain aneurysm (Chronic) Anxiety (Chronic) Brain aneurysm (Chronic) s/p stent and coil placement. 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 Paternal History Items: - - Patient notes a paternal family history of coronary artery disease, fatal NH at age 53. Lives: Spouse/ Significant Other Smoking Status: Former smoker Alcohol: Occasional Drugs: None Review of Systems - Review of Systems General: Denies: Fever, Night Sweats, Fatigue Cardiovascular: Reports: Shortness of Breath, Shortness of Breath at Rest, Shortness of Breath with Exertion. Denies: Chest Discomfort, Orthopnea, PND, Peripheral Edema, Palpitations, Lightheadedness, Dizziness, Near Syncope, Syncope Respiratory: Denies: Cough, Sputum Production, Hemoptysis Gastrointestinal: Denies: Hematemesis, Hematochezia, Melena Genitourinary: Denies: Dysuria, Hematuria Skin: Denies: Rash Subjectve: The patient seen and evaluated. Objective: Vital Signs Temp Pulse Resp BP Pulse Ox 98.4 F 65 16 108/44 L 95 11/15/17 05:33 11/15/17 05:33 11/15/17 05:33 11/15/17 05:33 11/15/17 05:33 Oxygen Delivery Method Room Air Weight: 172 lb 2.896 oz Body Mass Index (BMI) 33.9 Intake and Output for Last 24 Hours 11/13/17 11/14/17 11/15/17 23:59 23:59 23:59 Output Total 1200 / 1200 Balance -1200 / -1200 General: Awake, Alert, Oriented x 3 HEENT: PERRL, EOMI, Sclera Non Icteric Neck: Supple, Good ROM, No Lymph Node Enlargement Lungs: Clear to auscultation Cardiovascular: Irregular Rhythm, Normal S1, Normal S2, No Murmurs, No Rubs, No Gallops Vascular: No Carotid Bruits, Normal Femoral Pulses, Normal Radial Pulses, Normal Dorsalis Pedal Pulse, Normal Posterior Tibial Pulses Abdomen: Bowel Sounds Present, Soft, Non Tender, No HSM, No Organomegaly Extremities: No Cyanosis, No Clubbing, No edema Neurological: No Focal Motor or Sensory Deficit 11/15/17 01:00: Troponin I 0.024 11/15/17 04:00: Hemoglobin A1c 7.6 H 11/15/17 04:00: WBC 8.1, RBC 3.46 L, Hgb 10.6 L, Hct 31.4 L, MCV 90.8, MCH 30.6 , MCHC 33.8, RDW 14.9 H, RDW Differential 48.3 H, Plt Count 207, MPV 10.1 11/15/17 04:00: Sodium 140, Potassium 3.6, Chloride 105, Carbon Dioxide 26.0, Anion Gap 9, BUN 18, Creatinine 1.06 H, Est GFR (MDRD) Af Amer 66, Est GFR (MDRD ) Non-Af 54 L, BUN/Creatinine Ratio 17.0, Glucose 146 H, Calcium 8.4 L, Troponin I < 0.015, Triglycerides 134, Cholesterol 97, LDL Cholesterol 30, VLDL Cholesterol 27, HDL Cholesterol 40 Rhythm: EKG: Atrial fibrillation with a controlled ventricular response rate Assessment/Plan 1. Congestive heart failure acute-probable diastolic. She presents with shortness of breath with an irregular fast heartbeat and an elevated natruretic peptide level and features of congestive heart failure on the chest x-ray. My recommendation at this time will be to continue with diuresis and obtain an echocardiogram to assess her left ventricular function and characterize the above. The likely etiology is secondary to the paroxysmal atrial fibrillation. I do not think this is secondary to valvular dysfunction though this needs to be evaluated as well. 2. Atrial fibrillation. Patient appears to be therapeutically anticoagulated on Xarelto and also on sotalol. After she is diuresed and her heart rate controlled on the sotalol we may consider DC cardioversion prior to discharge. 3. Valvular heart disease. She does have a history of valvular heart disease status post aortic valve homograft implantation. My recommendation would be for us to reevaluate her with the echocardiogram. Her valve is 21 years old and at this time I do not hear any significant murmur which may be contributing to her current issues. However this would need to be evaluated further. 4. Abnormal cardiac enzymes. She does have mildly abnormal cardiac enzymes. It may be prudent to obtain a pharmacologic myocardial perfusion stress test to exclude obstructive coronary disease as a potential etiology. She does have evidence of peripheral vascular disease as well as carotid disease. In the meantime she will continue with risk factor modification. 5. Peripheral vascular disease. She does have evidence of peripheral vascular disease and will continue to follow with the vascular surgeon. I do not think that this is playing a role in her current issues here at this time. She will however continue with aggressive risk factor modification. 6. Hypertension. She does have a history of hypertension well-controlled on the current medical therapy which will also be continued. Thank you for allowing me to participate in the care of your patient. Please don't hesitate to call if any issues arise
[2017-11-15] MEDS: 0.9% NaCl Peripheral Flush Adult/Peds IV ×2 (07:56→17:23)
[2017-11-15] MEDS: Aspirin E.C. 81 MG Tablet PO (08:10)
[2017-11-15] MEDS: Lisinopril 40 MG Tablet PO (08:10)
--- NOTE | 2017-11-15 10:52 | PCM.PROGNOTE ---
Patient Problems: Active and Suspected Problems (Last Updated 07/01/17 @ 13:45 by Vielka Welch) CHF exacerbation (Acute) Cardiac arrhythmia (Acute) Subjective: Seen and examined today, she appears comfortable, her was in the room today and I discussed her medical care with him also. Also talked briefly with cardiology, patient is to have a nuclear stress test today as well as an echocardiogram, if patient remains in atrial fibrillation tomorrow, cardiology may recommend a cardioversion. Patient denies any chest pain or shortness of breath at this time, she appears still to be in atrial fibrillation. - Physical Exam General: Alert, Oriented x3, Cooperative, No apparent distress, Well developed, Well nourished HEENT: Atraumatic, PERRLA, EOMI, Normocephalic Oral: Moist Mucosa Neck: Supple, No JVD, Negative Carotid Bruits, No Nuchal Rigidity, Trachea Midline, Thyroid Normal Size and Texture Lungs: Clear to auscultation, Normal air movement, No rhonchi, No wheeze, No rales Cardiovascular: No murmurs, PMI Normal, Irregular Rate, No rub noted Abdomen: Bowel Sounds Present, Soft, Non Tender, Non-Distended, No hernias noted Extremities: No clubbing, No cyanosis, No edema, Capillary Refill Less than 3 Seconds Skin: No rashes, No breakdown Musculoskeletal: No Tenderness to Palpation of Joints or Extremities Neurological: Cranial nerves II-XII grossly intact, Neuro grossly intact, Sensory exam intact to light touch and pain, Coordination normal Psych/Mental Status: Normal Affect, Appropriate, Alert and oriented to time, place, person, mood and affect Vital Signs Temp Pulse Resp BP Pulse Ox 98.1 F 67 18 109/59 L 95 11/15/17 08:08 11/15/17 08:08 11/15/17 08:14 11/15/17 08:08 11/15/17 08:08 Oxygen Delivery Method Room Air Weight: 78.1 kg Body Mass Index (BMI) 33.9 Intake and Output for Last 24 Hours 11/13/17 11/14/17 11/15/17 23:59 23:59 23:59 Output Total 1200 / 1200 Balance -1200 / -1200 Laboratory Tests Past 24 Hrs 11/15/17 11/15/17 11/15/17 01:00 04:00 04:00 WBC 8.1 RBC 3.46 L Hgb 10.6 L Hct 31.4 L MCV 90.8 MCH 30.6 MCHC 33.8 RDW 14.9 H RDW Differential 48.3 H Plt Count 207 MPV 10.1 Sodium Potassium Chloride Carbon Dioxide Anion Gap BUN Creatinine Estim Creat Clear Calc Est GFR (MDRD) Af Amer Est GFR (MDRD) Non-Af BUN/Creatinine Ratio Glucose Hemoglobin A1c 7.6 H Calcium Troponin I 0.024 Triglycerides Cholesterol LDL Cholesterol VLDL Cholesterol HDL Cholesterol 11/15/17 04:00 WBC RBC Hgb Hct MCV MCH MCHC RDW RDW Differential Plt Count MPV Sodium 140 Potassium 3.6 Chloride 105 Carbon Dioxide 26.0 Anion Gap 9 BUN 18 Creatinine 1.06 H Estim Creat Clear Calc 34.46 Est GFR (MDRD) Af Amer 66 Est GFR (MDRD) Non-Af 54 L BUN/Creatinine Ratio 17.0 Glucose 146 H Hemoglobin A1c Calcium 8.4 L Troponin I < 0.015 Triglycerides 134 Cholesterol 97 LDL Cholesterol 30 VLDL Cholesterol 27 HDL Cholesterol 40 POC Glucose 11/15/17 11/15/17 06:49 00:45 POC Glucose 133 H 232 H Medical Necessity - Tobacco Use Smoking Status: Former smoker Assessment/Plan Active and Suspected Problems (Last Updated 07/01/17 @ 13:45 by Vielka Welch) CHF exacerbation (Acute) Cardiac arrhythmia (Acute) #1 acute diastolic congestive heart failure-patient will continue diuresis at this point, diagnostic testing is pending #2 paroxysmal atrial fibrillation-patient is on Xarelto, more than likely if she does not convert she will undergo cardioversion during this hospitalization #3 valvular heart disease-patient had a aortic valve replacement performed in the late , she states she has had 2 recent echocardiograms done within the past year and her physicians have not mention any significant problems with her valve. Echocardiogram will be repeated today #4 cerebrovascular disease-patient has a history of cerebral aneurysm which was coiled in the past. #5 hypertension #6 type 2 diabetes- continue to monitor blood sugars and use sliding scale insulin #7 hyperlipidemia Code Visit Inpatient E&M: 83085 Subs Hosp L2
[2017-11-15] MEDS: Sotalol Hydrochloride 80 MG Tablet 40 MG PO (12:07)
[2017-11-15] MEDS: amLODIPine 10 MG Tablet PO (12:07)
[2017-11-15] MEDS: Furosemide 40 MG/4 ML Vial IV ×2 (12:12→17:22)
[2017-11-15] MEDS: Pantoprazole Sodium 20 MG Tablet PO (12:13)
[2017-11-15] MEDS: Cholestyramine/Sucrose 4 GM/PACKET PO (12:13)
[2017-11-15] MEDS: Rivaroxaban 20 MG Tablet PO (12:13)
--- NOTE | 2017-11-15 12:28 | STRESSREP ---
Stress Test Report Pharmacologic myocardial perfusion stress test. 72-year-old lady with a history of paroxysmal atrial fibrillation. Stress protocol: Resting EKG demonstrates atrial fibrillation with a rate of 69 bpm resting blood pressure is 132/84 mmHg. 0.4 mg of regadenoson was infused per usual protocol followed by rapid intravenous and flush injection continuous EKG monitoring was performed. The maximum heart rate attained was 105 bpm which was 70% of maximum predicted heart rate the maximum workload attained was 1 metabolic equivalent. At rest there were no ST or T-wave changes noted to suggest abnormal flow reserve at peak infusion no ST or T-wave changes were noted suggest abnormal flow reserve. Resting blood pressure is 130/68 and the maximum blood pressure is 132/88 mmHg. Myocardial perfusion protocol: 11.1 mCi of technetium 99m sestamibi was injected at rest. 0.4 mg regadenoson was infused per usual protocol peak infusion 33.6 mCi of technetium 99m sestamibi was injected stress images were obtained stress and rest images were reconstructed and compared in the short axis vertical long and horizontal long axis. Gated images were also obtained - Perfusion SPECT analysis: Review of the stress images demonstrate normal uptake of tracer noted in all areas of the myocardium. The resting images similarly demonstrate normal uptake of tracer noted in all areas of the myocardium no reversibility is noted suggest ischemia no previous infarct is noted. Gated SPECT analysis: The gated ejection fraction is 67%. Conclusion: Normal pharmacologic myocardial perfusion stress test. Atrial fibrillation noted. Preserved ejection fraction.
--- NOTE | 2017-11-15 13:11 | CASEMGMT ---
Face to Face with patient for initial transition planning/care coordination assessment. RN JOSUÉ introduced self and role at [facility], pt voices understanding and consents to assessment at this time. Pt is lying in bed in no distress at this time. Pt is A/O x4 at this time and answers all questions appropriately at this time. Care providers, pharmacy, and demographics verified. See attached link. Pt voices no further concerns/needs at this time. Advised pt to ask for CM if any further questions/concerns/needs arise, voices understanding. CM to follow for any further discharge planning/needs. [place]
[2017-11-15 14:26] LABS: Bedside Glucose 198 mg/dL (70-110)
[2017-11-15] MEDS: Acetaminophen 325 MG Tablet 650 MG PO (16:10)
[2017-11-15 16:31] LABS: Bedside Glucose 169 mg/dL (70-110)
[2017-11-15] MEDS: Sotalol Hydrochloride 80 MG Tablet PO (22:45)
[2017-11-15] MEDS: Atorvastatin Calcium 20 MG Tablet PO (22:45)
[2017-11-15] MEDS: Glucerna Shake 120 ML LIQUID 60 ML PO (22:49)
[2017-11-15 23:01] LABS: Bedside Glucose 189 mg/dL (70-110)
[2017-11-16] VITALS (11 sets, daily range): BP systolic 106–130; BP diastolic 42–58; PULSE 54–77; RESP 15–20; TEMP 36.6–36.9; O2SAT 94–99
[2017-11-16 07:01] LABS: Bedside Glucose 126 mg/dL (70-110)
--- NOTE | 2017-11-16 08:57 | PCM.PN.CARD ---
Subjectve: Patient seen and evaluated and appears to be doing much better Objective: Vital Signs Temp Pulse Resp BP Pulse Ox 98.4 F 70 20 H 116/58 L 94 11/16/17 04:40 11/16/17 07:07 11/16/17 04:40 11/16/17 04:40 11/16/17 07:10 Oxygen Delivery Method Room Air Weight: 171 lb 15.369 oz Body Mass Index (BMI) 33.9 Intake and Output for Last 24 Hours 11/14/17 11/15/17 11/16/17 23:59 23:59 23:59 Intake Total 500 / 500 155 / 155 Output Total 5150 / 5150 300 / 300 Balance -4650 / -4650 -145 / -145 General: Awake, Alert, Oriented x 3 HEENT: PERRL, EOMI, Sclera Non Icteric Neck: Supple, Good ROM, No Lymph Node Enlargement Lungs: Clear to auscultation Cardiovascular: Irregular Rhythm, Normal S1, Normal S2, No Murmurs, No Rubs, No Gallops Vascular: No Carotid Bruits, Normal Femoral Pulses, Normal Radial Pulses, Normal Dorsalis Pedal Pulse, Normal Posterior Tibial Pulses Abdomen: Bowel Sounds Present, Soft, Non Tender, No HSM, No Organomegaly Extremities: No Cyanosis, No Clubbing, No edema Neurological: No Focal Motor or Sensory Deficit Rhythm: Atrial fibrillation with a controlled ventricular response rate Medical Necessity - Tobacco Use Smoking Status: Former smoker Assessment/Plan 1. Congestive heart failure acute-probable diastolic. She presented with shortness of breath with an irregular fast heartbeat and an elevated natriuretic peptide level and features of congestive heart failure on the chest x-ray. Her echocardiogram demonstrated overall preserved left ventricular systolic function. The likely etiology is secondary to the paroxysmal atrial fibrillation. I do not think this is secondary to valvular dysfunction though this needs to be evaluated as well. 2. Atrial fibrillation. Patient appears to be therapeutically anticoagulated on Xarelto and also on sotalol. After she is diuresed and her heart rate controlled on the sotalol we may consider DC cardioversion prior to discharge. Plan is to consider DC cardioversion this afternoon. 3. Valvular heart disease. She does have a history of valvular heart disease status post aortic valve homograft implantation. Her echocardiogram demonstrated overall preserved left ventricular systolic function with a well-functioning homograft aortic valve with mild regurgitation. She also did have mild mitral and tricuspid regurgitation. 4. Abnormal cardiac enzymes. She does have mildly abnormal cardiac enzymes. Her myocardial perfusion stress test did not demonstrate any evidence of ischemia and we will continue with medical therapy. 5. Peripheral vascular disease. She does have evidence of peripheral vascular disease and will continue to follow with the vascular surgeon. I do not think that this is playing a role in her current issues here at this time. She will however continue with aggressive risk factor modification. 6. Hypertension. She does have a history of hypertension well-controlled on the current medical therapy which will also be continued. Thank you for allowing me to participate in the care of your patient. Please don't hesitate to call if any issues arise
[2017-11-16] MEDS: Aspirin E.C. 81 MG Tablet PO (09:10)
[2017-11-16] MEDS: Lisinopril 40 MG Tablet PO (09:10)
[2017-11-16] MEDS: Rivaroxaban 20 MG Tablet PO (09:10)
[2017-11-16] MEDS: Pantoprazole Sodium 20 MG Tablet PO (09:11)
[2017-11-16] MEDS: amLODIPine 10 MG Tablet PO (09:12)
[2017-11-16] MEDS: Furosemide 40 MG/4 ML Vial IV (09:12)
[2017-11-16] MEDS: Sotalol Hydrochloride 80 MG Tablet PO (09:22)
[2017-11-16 11:36] LABS: Bedside Glucose 134 mg/dL (70-110)
--- NOTE | 2017-11-16 12:18 | PCM.OP.BLANK ---
Operative Report Date of Procedure: 11/16/17 DC cardioversion. Atrial fibrillation with valvular heart disease. Patient has been anticoagulated with Xarelto and came in with paroxysmal atrial fibrillation as well as mild heart failure. An echocardiogram demonstrated preserved left ventricular ejection fraction. The patient was seen by Dr. Rincon of the pulmonary division. After informed consent was obtained anterior posterior pads were applied. The patient was then administered 40 mg of intravenous propofol and 200 J of synchronized DC cardioversion energy were applied. There was prompt reversal to sinus rhythm though she did have a period of asystole. However she rapidly recovered back into sinus rhythm with a EKG confirming sinus bradycardia. Plan will be to continue her on sotalol 80 mg in a.m. and 40 mg in the p.m. The patient has been informed about the change in the dosage administration times. Follow-up in my office in 2-4 weeks.
--- NOTE | 2017-11-16 12:48 | PCM.DC ---
- Discharge Diagnoses Current Active Problems: Current Active and Chronic Problems (Last Updated 07/01/17 @ 13:45 by Vielka Welch) Obesity (BMI 30.0-34.9) (Chronic) PAF (paroxysmal atrial fibrillation) (Chronic) PAD (peripheral artery disease) (Chronic) Family history of brain aneurysm (Chronic) Anxiety (Chronic) Brain aneurysm (Chronic) s/p stent and coil placement. CHF exacerbation (Acute) Cardiac arrhythmia (Acute) You will use the following diet at home:: No restrictions Your food should be the consistency of: Regular Your liquids should be the consistency of: Regular/Thin Discharge Activity: Return to Normal Activity Allergies/Adverse Reactions: Allergies No Known Allergies Allergy (Verified 11/14/17 21:52) Medications to take at Discharge Amlodipine [Norvasc] 10 mg PO QHS 07/13/15 Lisinopril [Zestril] 40 mg PO DAILY 07/13/15 Multivitamin [Daily Multiple Vitamin] 1 ea PO DAILY 07/13/15 Omeprazole [Prilosec] 20 mg PO DAILY 07/13/15 Rivaroxaban [Xarelto] 20 mg PO DAILY 07/13/15 Simvastatin [Zocor] 40 mg PO QHS 07/13/15 Ubidecarenone [Coq10] 50 mg PO DAILY 07/13/15 aspirin 81 mg tablet,delayed release 81 mg PO QDAY 07/01/17 cholestyramine-aspartame 4 gram oral powder for susp in a packet 4 g PO DAILY ea 07/01/17 magnesium 250 mg tablet 250 mg PO DAILY 07/01/17 Cholecalciferol (Vitamin D3) [Vitamin D3] 4,000 unit PO DAILY 11/15/17 Furosemide [Lasix] 20 mg PO DAILY 11/15/17 Sotalol Hydrochloride [Betapace (Beta Nora)] 80 mg PO UD #1 tablet 11/16/17 The following prescriptions were given: Sotalol Hydrochloride [Betapace (Beta Nora)] 80 mg PO UD #1 tablet Primary Care Physician: Mars Hernandez MD [Primary Care Provider] - Please follow up with your Primary Care Physician in: in 2-3 weeks Please Follow Up With: Yaniv Masters MD When: in 2 weeks
--- NOTE | 2017-11-16 13:11 | PCM.OP.BLANK ---
Problem List (1) Obesity (BMI 30.0-34.9) Status: Chronic (2) PAF (paroxysmal atrial fibrillation) Status: Chronic (3) Brain aneurysm Status: Chronic Comment: s/p stent and coil placement. (4) CHF exacerbation Status: Acute Qualifiers: Heart failure type: unspecified Qualified Code(s): I50.9 - Heart failure, unspecified (5) HTN (hypertension) Status: Chronic Qualifiers: Hypertension type: essential hypertension Qualified Code(s): I10 - Essential (primary) hypertension Operative Report Date of Procedure: 11/16/17 - Conscious sedation CONSCIOUS SEDATION REPORT BRIEF HISTORY OF PRESENT ILLNESS: The patient is a 72-year-old female with a history of paroxysmal atrial fibrillation that presented to [facility] on 11/14/2017 secondary to an shortness of breath. Patient reports multiple previous surgeries without any anesthesia complications. Patient was n.p.o. Patient denies a history of obstructive sleep apnea. Patient does report that she is a former smoker, but is never been diagnosed with COPD or asthma. Patient's last known ejection fraction was 55%. Patient does report compliance with Xarelto therapy. PHYSICAL EXAMINATION: VITAL SIGNS: Reviewed and were acceptable. GENERAL: The patient is a female, in no apparent distress, speaking in full sentences. HEENT: Normocephalic, atraumatic. Mucous membranes are moist and pink. Good mouth opening noted. Trachea is midline. Good neck mobility. Mallampati 3 CHEST: S1, S2 irregularly irregular. No murmurs, rubs or gallops were noted. LUNGS: Clear to auscultation bilaterally without appreciable wheezes, rales or rhonchi. ABDOMEN: Soft, nontender, nondistended. Positive bowel sounds. EXTREMITIES: There is no clubbing, cyanosis or edema. ASA Class: II DESCRIPTION OF PROCEDURE: After confirmation of informed consent, the patient's anesthesia plan was reviewed in detail. Propofol was chosen. Risks and benefits were reviewed and the patient agreed to proceed. At 12:08 PM, the patient was given 40 mg of propofol. The patient was given a 200 J synchronized cardioversion [address] Dr. Masters. Long sinus pause was noted initially after cardioversion, but then sinus bradycardia was noted. Patient had a good pulse and blood pressure throughout. The patient was monitored until 12:14 PM, at which time he reached her baseline mental status and function. The patient tolerated the procedure well. COMPLICATIONS: None ESTIMATED BLOOD LOSS: None RECOMMENDATIONS: Okay to recover in usual fashion. Code Visit [id number]: Other Procedure See Report - [id number]
--- NOTE | 2017-11-16 18:14 | DS.PCM_ITS ---
Discharge Date and Diagnosis Date of Admission: 11/14/17 Date of Discharge: 11/16/17 - Primary Discharge Diagnosis #1 acute diastolic congestive heart failure #2 paroxysmal atrial fibrillation #3 hypertension #4 hyperlipidemia #5 type 2 diabetes #6 aortic valvular heart disease #7 mild troponin elevations-etiology unclear - Secondary Discharge Diagnosis Chronic Problems (Last Updated 07/01/17 @ 13:45 by Vielka Welch) Obesity (BMI 30.0-34.9) (Chronic) PAF (paroxysmal atrial fibrillation) (Chronic) PAD (peripheral artery disease) (Chronic) Family history of brain aneurysm (Chronic) Anxiety (Chronic) Brain aneurysm (Chronic) s/p stent and coil placement. 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 Workup in the emergency room revealed her to be tachycardic with a pulse of 117 which was irregular, pulse ox was 95% on room air. Chest x-ray showed borderline cardiomegaly and vascular congestion indicative of CHF. Beta natruretic peptide was 162. Patient was admitted to PCU, she was monitored on telemetry, she was seen in consultation by cardiology who felt that she had atrial fibrillation with congestive heart failure. Echocardiogram was performed which showed her to have a normal ejection fraction. Patient was given IV Lasix for diuresis and underwent a nuclear stress test which showed no evidence of reversible ischemic changes. The following day, patient underwent an elective cardioversion with good results, she remained in sinus bradycardia after the cardioversion. On 11/15/17, patient was seen and examined and felt to be in stable condition for discharge home Discharge Activity: Return to Normal Activity Home Medications: Medications to take at Discharge Amlodipine [Norvasc] 10 mg PO QHS 07/13/15 Lisinopril [Zestril] 40 mg PO DAILY 07/13/15 Multivitamin [Daily Multiple Vitamin] 1 ea PO DAILY 07/13/15 Omeprazole [Prilosec] 20 mg PO DAILY 07/13/15 Rivaroxaban [Xarelto] 20 mg PO DAILY 07/13/15 Simvastatin [Zocor] 40 mg PO QHS 07/13/15 Ubidecarenone [Coq10] 50 mg PO DAILY 07/13/15 aspirin 81 mg tablet,delayed release 81 mg PO QDAY 07/01/17 cholestyramine-aspartame 4 gram oral powder for susp in a packet 4 g PO DAILY ea 07/01/17 magnesium 250 mg tablet 250 mg PO DAILY 07/01/17 Cholecalciferol (Vitamin D3) [Vitamin D3] 4,000 unit PO DAILY 11/15/17 Furosemide [Lasix] 40 mg PO DAILY 11/15/17 Sotalol HCl [Betapace AF (Beta Nora)] 40 mg PO QHS 11/16/17 Sotalol HCl [Betapace AF (Beta Nora)] 80 mg PO DAILY 11/16/17 Primary Care Physician: Mars Hernandez MD [Primary Care Provider] - Please follow up with your Primary Care Physician in: in 2-3 weeks Please Follow Up With: Yaniv Masters MD When: in 2 weeks Please Follow Up With: Mars Hernandez MD When: 2-3 weeks Disposition: Home Minutes spent on discharge:: 35 Patient Condition:: Stable Medical Necessity - Tobacco Use Smoking Status: Former smoker Meaningful Use Info Meaningful Use Diagnoses (Choose all that apply): CHF - CHF CAMILLE/ARB ordered at discharge?: Yes Documented LVEF (%): 55 Code Visit Inpatient E&M: 63083 Disch Hosp
--- NOTE | 2017-11-19 12:07 | CASEMGMT ---
DOUG MOSES DC F/U Phone call. DOUG MOSES called to pt's cell phone. Intro role of CM to patient. She states she is feeling well, denies questions re: medications. F/U appointments have been made. No concerns voiced, no suggestions re: her care given. DOUG MOSES thanked pt for using [facility]. Pt stated I got excellent care. Ramya LINCOLNN DOUG M
== END 2017-11-16 15:37 | disposition home or self-care (01) | DRG 293 ==
LOC: ED 22:25 → PCU 23:28
PROVIDERS: Admitting Provider Family Medicine; Emergency Provider Emergency Medicine; Family Provider Family Medicine; PCP Family Medicine; Visit Provider Internal Medicine
DX: I11.0 Hypertensive heart disease with heart failure (principal); I50.33 Acute on chronic diastolic (congestive) heart failure; I48.0 Paroxysmal atrial fibrillation; I73.9 Peripheral vascular disease, unspecified; E78.5 Hyperlipidemia, unspecified; Z95.4 Presence of other heart-valve replacement; D64.9 Anemia, unspecified; E11.9 Type 2 diabetes mellitus without complications; C44.702 Unspecified malignant neoplasm of skin of right lower limb, including hip; E66.9 Obesity, unspecified; Z68.32 Body mass index [BMI] 32.0-32.9, adult; K21.9 Gastro-esophageal reflux disease without esophagitis; F41.9 Anxiety disorder, unspecified; I08.3 Combined rheumatic disorders of mitral, aortic and tricuspid valves; Z86.79 Personal history of other diseases of the circulatory system; R79.9 Abnormal finding of blood chemistry, unspecified; Z79.02 Long term (current) use of antithrombotics/antiplatelets; Z79.82 Long term (current) use of aspirin; Z79.899 Other long term (current) drug therapy; Z87.891 Personal history of nicotine dependence
CPT/HCPCS: 36415; 71045; 78452; 80048; 80061; 82962; 83036; 83735; 83880; 84443; 84484; 85025; 85027; 85379; 92960; 93005; 93017; 93306; 97802; 99285; A9500; J7040; A4216; J1940; J2785

== ENCOUNTER 2019-01-02 21:37 | Emergency (ER) | payer MEDICARE, SELFPAY ==
[2018-05-24 10:09] VITALS: BMI 28.8
[2019-01-02 21:38] VITALS: BP 133/73; PULSE 108; RESP 15; TEMP 37.6; O2SAT 95; BMI 29.0
[2019-01-02 22:44] VITALS: PULSE 107; RESP 18; O2SAT 96
[2019-01-02 22:49] VITALS: O2SAT 96
--- NOTE | 2019-01-02 23:15 | RAD_ITS ---
HISTORY: [facility] - Chest EXAMINATION/TECHNIQUE: XR Chest 2 Views: COMPARISON: 08/02/15 CXR FINDINGS: LINES/DEVICES: None. LUNGS: No consolidation, edema or effusion. No pneumothorax. MEDIASTINUM AND CARDIOVASCULAR STRUCTURES: Mild enlargement of the cardiac silhouette unchanged. Calcified hilar lymph nodes and atherosclerosis of the thoracic aorta unchanged. BONES AND SOFT TISSUES: Unremarkable. RAD/Chest PA and Lateral IMPRESSION: No radiographic evidence of acute cardiopulmonary disease. at 0009 Reported and signed by: Neto Coelho MD Electronically Signed: Neto Coelho, at 0:08 EDT Tel , Service support ,
--- NOTE | 2019-01-02 23:15 | EKG12_ITS ---
Test Reason : Blood Pressure : / mmHG Vent. Rate : 097 BPM Atrial Rate : 153 BPM P-R Int : 000 ms QRS Dur : 108 ms QT Int : 370 ms P-R-T Axes : 000 -21 081 degrees QTc Int : 469 ms Atrial fibrillation with premature ventricular or aberrantly conducted complexes Moderate voltage criteria for LVH, may be normal variant Abnormal ECG Confirmed by CASA UGARTE, CHALINO ([id number]), technical editor WAYNE JOHNSON ([id number]) on 01/04/2019 12:12:47 PM Referred By: VAIBHAV Confirmed By:CHALINO CORMIER MD
[2019-01-02 23:29] VITALS: BP 116/74; PULSE 94; RESP 20; O2SAT 97
[2019-01-02 23:37] LABS: Absolute Lymphocyte Count 3.19 X10^3/ul (0.83-4.51); Absolute Neutrophil Count 6.8 X10^3/uL (2.0-7.7); Basophil# 0.05 X10^3/uL; Basophil% 0.4 % (0-1); Eosinophil# 0.25 X10^3/uL; Eosinophils% 2.1 % (0-5); Hematocrit 34.5 % (37-47); Hemoglobin 11.5 g/dl (12.0-15.0); Lymphocyte # 3.19 X10^3/ul (4.0); Lymphocyte % 26.2 % (19-41); Mean Corp Hgb Conc 33.3 g/gl (32-36); Mean Corpuscular Hgb 30.5 pg (27.0-32.0); Mean Corpuscular Volume 91.5 fL (81-99); Mean Platelet Vol. 9.6 fl (6.2-12.0); Monocyte# 1.88 X10^3/uL; Monocyte% 15.4 % (0-10); Neutrophil # 6.79 X10^3/uL (2.7-7.7); Neutrophil % 55.7 % (47-70); Platelet Count 242 K/mm3 (150-450); RBC Distribution Width CV 14.4 % (11.6-14.6); RBC Distribution Width SD 47.9 fl (35.1-43.9); Red Blood Count 3.77 M/mm3 (4.2-5.4); White Blood Count 12.2 K/mm3 (4.4-11.0)
[2019-01-02 23:38] LABS: Differential Indicated SCAN CRITERIA MET; POSITIVE COUNT NO; POSITIVE DIFFERENTIAL YES; POSITIVE MORPHOLOGY NO
[2019-01-02] MEDS: Ipratropium/Albuterol Sulfate 3 ML AMPUL.NEB INHALATION (23:38)
[2019-01-02 23:39] VITALS: PULSE 92; RESP 18
[2019-01-02 23:56] LABS: ALB/GLOB Ratio 0.7 RATIO (0.9-2.4); AST(SGOT) 13 U/L (15-37); Alanine Aminotransfer ALT/SGPT 14 U/L (13-56); Alkaline Phosphatase 72 U/L (45-117); Anion Gap 6 (5-15); BUN 18 mg/dL (7-18); BUN/Creat Ratio 16.7 RATIO (10-20); Calcium,Total 8.7 mg/dL (8.5-10.1); Chloride 102 mmol/L (98-107); Creatinine, Serum 1.08 mg/dL (0.55-1.02); EST Glomerular Filtration Rate 53 mL/min (>60); Est Glom Filt Rate - Afr Amer 64 mL/min (>60); Estimated Creatinine Clearance 38.38 ml/min; Globulin 4.4 g/dL (2.2-4.2); Glucose 127 mg/dL (74-106); Potassium 4.5 mmol/L (3.5-5.1); Protein, Total 7.4 g/dL (6.4-8.2); Sodium Level 133 mmol/L (136-145)
[2019-01-03 00:03] LABS: Bacteria 0 SEEN /hpf (None Seen); Mucous, Urine 0 SEEN /hpf (<or=2+); Red Blood Cells-Urine 0 SEEN /hpf (0-5); Squamous Epithelial Cells - UA 0 SEEN /hpf (5-10); White Blood Cells 0 SEEN /hpf (0-5)
[2019-01-03 00:07] LABS: Color, Urine Yellow (Yellow); Glucose, Dipstick Normal (Normal); Ketone-Dipstick Negative (Negative); Leukocyte Esterase-Dipstick 100 /ul (Negative); Nitrite-Dipstick Negative (Negative); Occult Blood-Urine Negative /ul (Negative); Protein-Dipstick Negative (Negative); Specific Gravity, Urine 1.015 (1.002-1.030); Urine Bilirubin Dipstick Negative (Negative); Urine Clarity Clear (Clear); Urine Urobilinogen Normal (Normal)
[2019-01-03 00:49] VITALS: O2SAT 96
--- NOTE | 2019-01-03 00:56 | ED.VISSUMM ---
- ER Visit Summary Date of Service: 01/03/19 Chief Complaint: Cough History of Present Illness: The patient is a 73 F who presents the emergency room with approximately 1 week of a cough. Patient states that this began last Wednesday. Began with a slight cough and some subjective fever around 100. She notes chills and sweats intermittently she notes a right-sided ear pain which is worse than normal from her chronic right-sided ear issues. She has runny nose sore throat occasional sputum production. She also notes some urinary frequency but does states she has been hydrating. Generalized body aches headache feels fatigued. History of paroxysmal A. fib peripheral artery disease diabetes hypertension high cholesterol CHF last known ejection fraction was 55%. She is on Xarelto. Physical Examination: Afebrile vital signs are stable (oral temperature taken by myself is 99.1) Gen: Well-nourished well-developed Head: Normocephalic atraumatic Eyes: Perrl EOMI ENT: Left TMs clear right tympanic membrane shows chronic changes no rhinorrhea moist mucous membranes Neck: Supple no lymphadenopathy no JVD nontender CVS: Irregular irregular rhythm no murmurs normal S1-S2 Respiratory: No distress slight expiratory wheeze with rhonchi that improved with cough chest nontender Abdomen: Soft nontender nondistended normal bowel sounds no masses Back: Nontender Extremity: Nontender no edema Skin: Normal color no rash Neuro: alert orientated ?3 CN II-XII intact normal strength sensation reflexes gait cerebellar Psych: Normal affect normal mood Test Results: Chest x-ray is negative for infiltrate. White count 12.2. Creatinine 1.08. Urinalysis normal. EKG confirms atrial fibrillation rate of 97 Emergency Department Course and Treatment: She received breathing treatments and feels significantly improved. She is able to ambulate at 98% without symptoms. Will start on doxycycline and a short course of prednisone and aerosols return if worsening or concerns Impression: 1. Acute bronchitis with bronchospasm 2. Right otalgia This note was generated with [employer] dictation software. It may contain incorrect words, spelling, and punctuation that were not noted in review of the chart prior to signing ED Disposition - Plan for ED Patient: Disposition: Home or Assisted Living Instructions: BRONCHITIS with Wheezing (Adult) Prescriptions: Prednisone [Deltasone] 40 mg PO DAILY #10 tab Prescription Printed Doxycycline 100 mg PO BID #20 cap Prescription Printed Albuterol Inhaler [Ventolin Hfa] 2 puff INHALATION Q4H PRN PRN #1 inhaler PRN Reason: Wheezing Prescription Printed Referrals: Mars Hernandez MD [Primary Care Provider] - 1 Week
[2019-01-03] MEDS: predniSONE 20 MG Tablet 60 MG PO (01:06)
[2019-01-03] MEDS: Doxycycline 100 MG CAPSULE PO (01:06)
[2019-01-03 01:08] VITALS: BP 136/74; PULSE 104; RESP 19; O2SAT 96
[2019-01-04 10:12] LABS: Pathologist Review Reviewed
== END 2019-01-03 01:25 | disposition home or self-care (01) ==
PROVIDERS: Emergency Provider Emergency Medicine; Family Provider Family Medicine; PCP Family Medicine
DX: J20.9 Acute bronchitis, unspecified (principal); H92.01 Otalgia, right ear
CPT/HCPCS: 71046; 80053; 81001; 85025; 93005; 94640; 99285

== ENCOUNTER 2019-03-24 11:26 | Emergency (ER) | payer MEDICARE, SELFPAY ==
[2019-03-24 11:29] VITALS: BP 195/71; PULSE 65; RESP 20; TEMP 36.6; O2SAT 95; BMI 29.0
--- NOTE | 2019-03-24 12:03 | RAD_ITS ---
STUDY: X-RAY CHEST REASON FOR EXAM: Female, 73 years old. Chest pain and pressure with shortness of breath. Recent heart ablation. TECHNIQUE: Single AP portable upright view of the chest. COMPARISON: PA and lateral chest x-ray January 02, 2019. FINDINGS: There is bilateral perihilar pulmonary vascular prominence and scattered subpleural linear densities/Marley B lines, together indicating mild to moderate pulmonary venous congestion. An element of subsegmental atelectasis may also be present in the medial right lung base. There is no demonstrated pleural abnormality. There is stable mild cardiac enlargement. Normal mediastinum. Surgical clips again overlie the right hilum, although on the lateral view of the prior study these may be in the anterior chest wall. There are calcified lymph nodes in the left hilum. There is stable atherosclerotic calcification of the aortic arch. There are stable multilevel degenerative changes of the visualized thoracic spine. Normal visualized ribs, clavicles, and shoulders. There is no demonstrated abnormality of the visualized soft tissue structures of the upper abdomen. RAD/Chest 1 View (Portable) IMPRESSION: Stable cardiac enlargement, now with findings of mild to moderate pulmonary venous congestion. Superimposed subsegmental atelectasis may also be present in the medial right lung base. Electronically Signed: David Black MD at 13:11 EDT , Service support ,
--- NOTE | 2019-03-24 12:03 | EKG12_ITS ---
Test Reason : SOB HTN Blood Pressure : / mmHG Vent. Rate : 065 BPM Atrial Rate : 065 BPM P-R Int : 088 ms QRS Dur : 108 ms QT Int : 440 ms P-R-T Axes : 000 -11 078 degrees QTc Int : 457 ms Sinus rhythm with short SD with Premature atrial complexes with Aberrant conduction Left ventricular hypertrophy with repolarization abnormality Abnormal ECG Confirmed by TORSTEN UGARTE, MIKE ([id number]), mapping editor ROJELIO TADEO ([id number]) on 03/27/2019 9:17:14 AM Referred By: JOHN Confirmed By:MIKE SARMIENTO MD
[2019-03-24 12:54] LABS: Absolute Lymphocyte Count 2.16 X10^3/uL (0.83-4.51); Absolute Neutrophil Count 6.8 X10^3/uL (2.0-7.7); Basophil# 0.06 X10^3/uL; Basophil% 0.6 % (0-1); Eosinophil# 0.33 X10^3/uL; Eosinophils% 3.1 % (0-5); Hematocrit 33.8 % (37-47); Hemoglobin 10.9 g/dL (12.0-15.0); Lymphocyte # 2.16 X10^3/ul (4.0); Lymphocyte % 20.6 % (19-41); Mean Corp Hgb Conc 32.2 g/dL (32-36); Mean Corpuscular Hgb 30.2 pg (27.0-32.0); Mean Corpuscular Volume 93.6 fL (81-99); Mean Platelet Vol. 9.8 fl (6.2-12.0); Monocyte% 10.5 % (0-10); NRBC Flagged by Analyzer 0 % (0-5); Neutrophil # 6.75 X10^3/uL (2.7-7.7); Neutrophil % 64.4 % (47-70); Platelet Count 262 K/mm3 (150-450); RBC Distribution Width SD 48.4 fl (35.1-43.9); Red Blood Count 3.61 M/mm3 (4.2-5.4); White Blood Count 10.5 K/mm3 (4.4-11.0)
[2019-03-24 13:29] VITALS: BP 171/45; PULSE 59; RESP 16; O2SAT 95
[2019-03-24 13:30] LABS: Anion Gap 10 (5-15); BUN 21 mg/dL (7-18); BUN/Creat Ratio 16.7 RATIO (10-20); Calcium,Total 9.2 mg/dL (8.5-10.1); Chloride 99 mmol/L (98-107); Creatinine, Serum 1.26 mg/dL (0.55-1.02); EST Glomerular Filtration Rate 44 mL/min (>60); Est Glom Filt Rate - Afr Amer 53 mL/min (>60); Estimated Creatinine Clearance 31.45 ml/min; Glucose 134 mg/dL (74-106); Potassium 4.4 mmol/L (3.5-5.1); Sodium Level 136 mmol/L (136-145)
[2019-03-24 13:57] LABS: BNP,B-Type NATRIURETIC PEPTIDE 379.8 pg/mL (0-100)
[2019-03-24 14:35] VITALS: BP 169/47; PULSE 61; RESP 16; O2SAT 91
--- NOTE | 2019-03-24 14:56 | CHAPLAIN ---
Type of Pastoral Visit _x__ Initial Visit ___ Follow-up Visit ___ On-call Visit ___ General Patient Visit ___ Spiritual Assessment ___ Family Conference ___ Bereavement ___ Rapid Response ___ Code Blue ___ Other (describe below) Pastoral Care Referral From _x__ Patient ___ Family ___ Nurse ___ Physician ___ It Instructor ___ Casualty Underwriter _x__ Other (describe below) Sacrament/Intervention _x__ Active listening ___ Anointing ___ Gnosticism ___ Bereavement ___ Communion ___ Kelsea exploration ___ ___ Life review _x__ Prayer ___ Reconciliation ___ Sacrament of Sick _x__ Supportive presence ___ Wedding ___ Other (describe below) Pastoral Comments staff asked for spiritual support and prayer for patient; pt and spouse welcomed support and presence of roof panel hanger
--- NOTE | 2019-03-24 15:38 | CT_ITS ---
STUDY: CTA CHEST/THORAX REASON FOR EXAM: Female, 73 years old. Chest pain. Cardiac ablation procedure March 22, 2019. RADIATION DOSAGE (If Supplied By Facility): CTDIvol = ( 12.13 ) mGy, DLP = ( 473.69 ) mGycm TECHNIQUE: The examination was performed with the intravenous administration of 100 IV Isovue 370. Post-processing of the angiographic images was performed, with multiplanar reformation and 3D reconstruction. Individualized dose optimization techniques were used for this CT. COMPARISON: Portable AP upright chest x-ray 1212 hours; noncontrast CT chest July 14, 2015.. FINDINGS: Normal enhancement of the main pulmonary artery and right and left pulmonary arteries. Generally normal enhancement of the bilateral peripheral pulmonary arteries. There is an incompletely occlusive filling defect at a second order bifurcation/trifurcation of the posterior medial upper lobe branch of right pulmonary artery (series 2 images 171, series 602 at 136), consistent with a small pulmonary embolus There is extensive episodic calcification at the root of the aorta. The mid descending aorta is 4.5 x 4.4 cm. There is atherosclerotic calcification of the aortic arch, proximal brachiocephalic vessels, and descending thoracoabdominal aorta. No demonstrated aortic dissection. There are severe atherosclerotic stenoses at the ostia of the celiac trunk, superior mesenteric artery, and bilateral renal arteries. There is no demonstrated aortic dissection. There is stable cardiomegaly. There are calcifications at the mitral valve leaflets and/or chordae tendineae. Normal pericardium. There are calcifications of the coronary arteries. There are a few nonspecific based on lymph nodes at the level of the thoracic aortic arch. Upper normal-sized pericarinal lymph nodes are unchanged. 3.95 x 2.85 x 1.1 cm vaguely defined right subcarinal node is grossly increased in size. Lymph nodes of the right hilum also are more conspicuous today. One of the largest is 2.5 x 1.7 x 0.9 cm. Stable calcified lymph nodes at the left hilum. Normal visualized trachea and bronchi. The lungs are well expanded. Ill-defined density consistent with scarring in the anterior margin of the right upper and middle lobes is unchanged. Minor focal scarring abutting the lateral pleural surface of the apical right upper lobe also unchanged. 4 mm density of indeterminate etiology now seen in the anterior periphery of the right lower lobe abutting the oblique pleural fissure on series 2 image 129, series 604 image 85, series 605 image 61. Calcified granulomata in the left lung apex are also stable. Subsegmental atelectasis now present in the posterior lung bases as well as in the anteromedial left upper lobe. Sessile appearing 7.5 mm pleural-based nodular density in the inferior left lower lobe abutting the diaphragm is new, but of uncertain etiology. There is a small volume right sided pleural effusion. There is a small volume left sided pleural effusion, as well as minor thickening in the upper left pleural fissure. Normal chest wall structures. There are stable multilevel degenerative changes of the thoracic spine. Calcified granulomata are again seen in the liver and spleen. There is a stable small hiatal hernia. CT/CTA Chest W/WO Contrast IMPRESSION: 1. Small, incompletely occlusive pulmonary embolus in a second and third order branch point of the posterior medial right upper lobe pulmonary artery. 2. Stable cardiac enlargement. There is moderate calcification of the root of the aorta, and stable 4.5 cm fusiform dilatation of the mid ascending aortic segment. No demonstrated dissection. 3. Atherosclerotic vascular calcifications present. There are severe ostial stenoses of the celiac trunk, superior mesenteric artery, and bilateral renal arteries. 4. Small dependent bilateral pleural effusions now present, larger on the right. There is compressive atelectasis in the posterior lung bases. Infection not excluded. 5. Stable scarring in the anterior and superolateral periphery of the right upper and middle lobes as well as stable findings of calcified granulomatous disease in the left lung. Subsegmental atelectasis now noted in the anteromedial left upper lobe, and there is a sessile, 7.5 mm nodular density in the inferior left base abutting the diaphragm. 6. Stable small hiatal hernia. Electronically Signed: David Black MD at 16:52 EDT , Service support ,
[2019-03-24 15:42] VITALS: BP 158/46; PULSE 61; RESP 16; O2SAT 92
[2019-03-24 17:11] VITALS: BP 171/52; PULSE 70; RESP 16; O2SAT 93
--- NOTE | 2019-03-24 17:19 | ED.VISSUMM ---
- ER Visit Summary Date of Service: 03/24/19 Chief Complaint: Multiple symptoms History of Present Illness: The patient is a 73 F who had a cardiac ablation 2 days ago at [facility] by Dr. Washington. She went home yesterday. She had a nosebleed overnight. Her blood pressures have been high. She complains of shortness of breath and dizziness. She is taking lisinopril 20 mg and amlodipine 5 mg daily. She also takes Xarelto. Physical Examination: Afebrile. Blood pressure 195/71. HEENT exam unremarkable. No sign of bleeding. Heart regular. Lungs clear. Abdomen soft. Extremities nontender with no edema. Skin appears normal in color. Good strength and sensation. Cranial nerves grossly intact. Normal speech. Test Results: EKG showed sinus rhythm with PACs. Rate of 65. LVH noted. Chest x-ray showed mild to moderate congestion. Hemoglobin 10.9, BUN 21 creatinine 1.26. Troponin 0 0.477. BNP 380. Emergency Department Course and Treatment: Patient was placed on a monitor. Work-up as above. Her troponin was elevated. This is likely from her ablation. A repeat troponin was stable. She is not having chest pain. Repeat blood pressure was 169/44 without any intervention. I did attempt to contact her duplicator punch set up operator, but after an hour, I have not heard back. I spoke with our duplicator punch set up operator on-call who advised to CTA. This showed a small incomplete pulmonary embolism in the right upper lung. No evidence of dissection. She does have calcifications, granulomatous disease, and small bilateral pleural effusions. I notified the patient that she does have incomplete pulmonary embolisms. I do not believe this is causing her symptoms. She is not hypoxic. She is not hypotensive. Heart rate is normal. She is already on Xarelto. I believe she is appropriate for continued outpatient care. I did speak with her duplicator punch set up operator, Dr. Washington. She advised that the patient's troponin was as expected. She also advised increasing the patient's Norvasc from 5 mill grams to 10 mg. She should follow-up in the office. Treatment Plan: As above Disposition: Discharge Impression: 1. History of cardiac ablation 2. Hypertension 3. Pulmonary embolism, incomplete occlusion This note was generated with joization software. It may contain incorrect words, spelling, and punctuation that were not noted in review of the chart prior to signing ED Disposition - Plan for ED Patient: Referrals: Mars Hernandez MD [Primary Care Provider] -
--- NOTE | 2019-03-24 17:23 | ED.DEP ---
ED Disposition - Plan for ED Patient: Instructions: Pulmonary Embolism, HYPERTENSION, Established Additional Instructions: follow up with Dr. Washington
[2019-03-24 17:37] VITALS: BP 171/52; PULSE 67; RESP 15; O2SAT 97
== END 2019-03-24 17:39 | disposition home or self-care (01) ==
LOC: ED 12:47
PROVIDERS: Emergency Provider Emergency Medicine; Family Provider Family Medicine; PCP Family Medicine
DX: I26.99 Other pulmonary embolism without acute cor pulmonale (principal); I10 Essential (primary) hypertension; Z98.890 Other specified postprocedural states; I11.0 Hypertensive heart disease with heart failure; I50.9 Heart failure, unspecified; E11.9 Type 2 diabetes mellitus without complications; I48.91 Unspecified atrial fibrillation; E78.00 Pure hypercholesterolemia, unspecified; Z79.02 Long term (current) use of antithrombotics/antiplatelets; Z79.82 Long term (current) use of aspirin; Z79.899 Other long term (current) drug therapy
CPT/HCPCS: 36415; 71045; 71275; 80048; 83880; 84484; 85025; 93005; 99284; Q9967; A4216

== ENCOUNTER → 2020-11-06 | Outpatient (CLI) | payer MEDICARE, SELFPAY | END | disposition home or self-care (01) | LOC: LABSPEC 15:08 | PROVIDERS: PCP Family Medicine; Referring Provider Dermatology; Visit Provider Dermatology | DX: L60.9 Nail disorder, unspecified (principal) | CPT/HCPCS: 87077; 87101 ==

== ENCOUNTER 2021-02-13 16:52 | Emergency (ER) | payer MEDICARE, SELFPAY ==
[2021-02-13 16:54] VITALS: BP 131/42; PULSE 79; RESP 17; TEMP 36.7; O2SAT 98; BMI 26.0
--- NOTE | 2021-02-13 17:00 | US_ITS ---
STUDY: ABDOMINAL ULTRASOUND - RIGHT UPPER QUADRANT REASON FOR VISIT: Female, 75 years old PAIN TECHNIQUE: Ultrasound evaluation of the right upper quadrant was performed with real-time and static chavis-scale imaging. TECHNICAL QUALITY: Adequate. COMPARISON: None. FINDINGS: Liver: The liver measures 13.7 cm. There is normal echogenicity of the liver. Scattered tiny calcifications are noted likely granulomatous The bile ducts are within normal limits. There is hepatic color flow. The direction of portal flow is hepatopetal. There is no demonstrated mass lesion. Gallbladder: Normal distended gallbladder. The gallbladder wall measures 1 mm. There is a negative sonographic Walden''s sign. There is no pericholecystic fluid. There are no gallstones. Common Bile Duct (C.B.D.): The common bile duct measures 3.5 mm. Pancreas: Normal size of the head, body and tail of the pancreas. There is diffusely increased echogenicity of the pancreas. There is no demonstrated pancreatic mass or cyst. Right Kidney: Normal size of the right kidney. The right kidney measures 11.9 x 4.9 x 5 cm. Normal renal cortex. The right cortex measures 1.1 cm. Small hypoechoic nodule in the upper pole measuring 3.1 x 2.9 x 2.8 cm. There is no right hydronephrosis. US/Gallbladder IMPRESSION: No acute abnormalities. Apparent solid nodule in the upper pole of the right kidney. CT with contrast or MRI recommended for further evaluation. Electronically Signed: Reji Reddy MD at 18:30 EDT , Service support ,
[2021-02-13 17:17] LABS: Absolute Neutrophil Count 5.9 X10^3/uL (2.0-7.7); Basophil# 0.06 X10^3/uL; Basophil% 0.6 % (0-1); Eosinophil# 0.15 X10^3/uL; Eosinophils% 1.6 % (0-5); Hematocrit 22.8 % (37-47); Hemoglobin 7.2 g/dL (12.0-15.0); Lymphocyte % 23.8 % (19-41); Mean Corp Hgb Conc 31.6 g/dL (32-36); Mean Corpuscular Hgb 28.9 pg (27.0-32.0); Mean Corpuscular Volume 91.6 fL (81-99); Mean Platelet Vol. 9.9 fl (6.2-12.0); Monocyte# 1.13 X10^3/uL; Monocyte% 11.7 % (0-10); NRBC Flagged by Analyzer 0 % (0-5); Neutrophil # 5.93 X10^3/uL (2.7-7.7); Neutrophil % 61.5 % (47-70); Platelet Count 232 K/mm3 (150-450); RBC Distribution Width CV 16.2 % (11.6-14.6); RBC Distribution Width SD 54.4 fl (35.1-43.9); Red Blood Count 2.49 M/mm3 (4.2-5.4); White Blood Count 9.7 K/mm3 (4.4-11.0)
--- NOTE | 2021-02-13 17:23 | EKG12_ITS ---
Test Reason : AB PAIN Blood Pressure : / mmHG Vent. Rate : 060 BPM Atrial Rate : 056 BPM P-R Int : 298 ms QRS Dur : 124 ms QT Int : 524 ms P-R-T Axes : 000 -16 011 degrees QTc Int : 524 ms Atrial-paced rhythm with prolonged AV conduction Left ventricular hypertrophy with QRS widening Abnormal ECG Confirmed by CASA UGARTE, CHALINO ([id number]), staff editor ROJELIO TADEO ([id number]) on 02/18/2021 8:49:28 AM Referred By: ONEIL Confirmed By:CHALINO CORMIER MD
--- NOTE | 2021-02-13 17:25 | CT_ITS ---
STUDY: CT ABDOMEN AND PELVIS WITH CONTRAST REASON FOR EXAM: Female, 75 years old. epigastric pain -- IV PO Contrast RADIATION DOSAGE (If Supplied By Facility): CTDIvol = ( 13.57 ) mGy, DLP = ( 642.72 ) mGycm TECHNIQUE: Transaxial images were obtained from the dome of the diaphragm to the symphysis pubis without oral contrast. IV 100mL Isovue-370 was administered. Sagittal and coronal images were reconstructed. Individualized dose optimization techniques were used for this CT. COMPARISON: 07/13/2015 FINDINGS: The visualized lung bases are unremarkable. Heart is enlarged. There is an aortic valve and proximal aortic graft. Moderate-sized hiatal hernia is noted The liver is normal size. There are tiny granulomatous calcifications. Bile ducts are nondilated.. Normal gallbladder and extrahepatic biliary system. Tiny granulomatous calcifications are seen in the normal-sized spleen. Normal pancreas. Normal bilateral adrenal glands. No evidence for renal obstruction. There is a solid mass in the upper pole of the right kidney measuring approximately 2.55 x 2.45 cm There is a moderate-sized hiatal hernia. There is a eccentric soft tissue density at the gastroesophageal junction possibly related to the hiatal hernia however cannot definitively exclude a mass.. Normal small intestine. Postsurgical changes status post resection of the rectosigmoid The appendix is visualized and appears normal. Extensive atherosclerotic changes without evidence for aortic aneurysm. There is severe calcific plaquing of the superior mesenteric artery and high-grade stenosis as well as mild calcific plaquing of the celiac artery.. Normal inferior vena cava. Normal retroperitoneum. Normal urinary bladder. Uterus not visualized consistent with hysterectomy There are surgical clips in the left groin. Lumbar spine demonstrates moderate spondylosis CT/Abdomen/Pelvis WITH Contrast IMPRESSION: There is moderate-sized hiatal hernia with eccentric soft tissue thickening possibly related to the hernia though cannot definitively exclude focal mass at the gastroesophageal junction. This may be further assessed endoscopically or with barium swallow if clinically warranted Solid mass in the upper pole the right kidney possibly neoplastic. MRI would be helpful for more definitive evaluation No evidence for small bowel obstruction or acute pancreatitis. 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 Duplex sonography of the celiac and superior mesenteric artery may be helpful for further evaluation if clinically warranted Electronically Signed: Reji Reddy MD at 20:55 EDT , Service support ,
--- NOTE | 2021-02-13 17:26 | ED.VIS.GI ---
HPI HPI - GI History of Present Illness Chief Complaint: Abd Pain Narrative Narrative: 75-year-old female presenting with right upper quadrant and epigastric pain. Dr. Ferguson did call ahead of time and told me that she has a history of pancreatitis and had a gallbladder ultrasound recently which showed sludge. Patient states that she saw Dr. Ferguson on Wednesday and now she is having worsening pain and nausea. Patient states that the pain radiates to her shoulders. Patient denies any specific chest pain. Patient states that after she eats about 30 minutes later she will get what feels like chills and nausea. Patient not experiencing shortness of breath. Patient has history of paroxysmal A. fib and is on Xarelto. She does admit to some black stools but denies bloody stools. [facility] Medical History Anxiety Brain aneurysm Bronchospasm with bronchitis, acute Cardiac arrhythmia Chest pain, musculoskeletal CHF exacerbation Diabetes Diabetes mellitus type 2 in obese Family history of brain aneurysm Fever Heart disease History of cancer HLD (hyperlipidemia) HTN (hypertension) Laceration of right middle finger Obesity (BMI 30.0-34.9) PAD (peripheral artery disease) PAF (paroxysmal atrial fibrillation) Skin cancer URI (upper respiratory infection) Home Medications rivaroxaban 15 mg PO DAILY 07/13/15 [History Last Taken 03/23/19] simvastatin 20 mg PO QHS 07/13/15 [History Last Taken 03/23/19] furosemide 20 mg PO DAILY 11/15/17 [History Last Taken 03/24/19] lisinopril 40 mg tablet 20 mg PO DAILY tab 12/02/17 [History Last Taken 03/24/19] amlodipine 5 mg PO BID 03/24/19 [History Last Taken 03/24/19] coenzyme Q10 100 mg PO DAILY 03/24/19 [History Last Taken 03/23/19] multivitamin with minerals 1 tab PO DAILY 03/24/19 [History Last Taken 03/23/19] amiodarone 200 mg PO DAILY 02/13/21 [History Last Taken Unknown] magnesium oxide 200 mg PO DAILY 02/13/21 [History Last Taken Unknown] metoprolol succinate 25 mg PO DAILY 02/13/21 [History Last Taken Unknown] Allergy/AdvReac Type Severity Reaction Status Date / Time No Known Allergies Allergy Verified 02/13/21 16:54 Family History Father Heart disease High cholesterol Mother Heart disease Surgical History H/O aortic valve replacement history bilateral ear surgeries History of hysterectomy history skin cancer surgery Social History (Updated 05/24/18 @ 10:[address] Yaniv Masters MD) Smoking Status: Never smoker alcohol intake: current alcohol intake frequency: a few times a month substance use type: does not use ROS ROS ED Constitutional Constitutional ED: Reports chills; Denies fever(s), sweats or weight loss ENT ENT ED: Denies rhinorrhea or sore throat Cardiovascular Cardiovascular: Reports other Details: Radiation of pain from abdomen to shoulders. ; Denies palpitations or racing heartbeat Respiratory/Chest Respiratory/Chest: Denies cough, dyspnea or sputum Gastrointestinal Gastrointestinal: Reports abdominal pain and nausea; Denies constipation or diarrhea Genitourinary Genitourinary ED: Denies dysuria or hematuria Musculoskeletal Musculoskeletal: Denies back pain or neck pain Integumentary Denies Abrasions or rash Neurologic Neurologic: Denies headache(s) or paresthesias EXAM Physical Exam Const Vital Signs: 02/13/21 16:54 02/13/21 19:29 02/13/21 22:15 Temperature 98.1 F Temperature Source Temporal Pulse Rate 79 82 76 Respiratory Rate 17 17 15 Blood Pressure 131/42 H 148/67 H 139/88 H Blood Pressure Mean 71 94 105 Pulse Ox 98 96 98 Oxygen Delivery Method Room Air Room Air Room Air 02/14/21 00:37 Temperature 97.2 F L Temperature Source Oral Pulse Rate 69 Respiratory Rate 15 Blood Pressure 129/43 H Blood Pressure Mean 71 Pulse Ox 97 Oxygen Delivery Method Room Air Positive well nourished General Appearance ED: NAD; Negative for pallor HEENT Reports moist mucous membranes normocephalic and atraumatic Eyes PERRL and EOMs intact bilaterally General Eye ED: Negative for pale conjunctiva or scleral icterus Resp normal respiratory effort and clear to auscultation bilaterally Cardio regular rate and regular rhythm GI non-distended Palpation: soft and tender epigastric and RUQ Neuro Sensorium / Orientation: alert, oriented to person, oriented to place and oriented to time Psych mental status grossly normal and thought process normal Skin General Skin Exam: Negative for jaundice or pallor Lesions: no lesions Rashes: no rashes MDM MDM MDM Narrative Medical decision making narrative: Patient presenting with epigastric and right upper quadrant pain. She is also complaining of some aching up into her shoulders. Because of this I did get an EKG which on my interpretation shows an atrial paced rhythm at 60 bpm. There does not appear to be any acute ischemic changes. Chest x-ray on my interpretation shows no acute cardiopulmonary process. I obtained a right upper quadrant ultrasound which was negative. Patient's lab work did return and showed she had a white blood cell count 9.7, hemoglobin 7.2, hematocrit 22.8, platelets 232. Patient's previous hemoglobin was 10.8 on 02/06/2021 which is 7 days ago. Patient's creatinine is also elevated at 1.65 which is increased from 02/06/2021 when it was 1.47. Patient will be given IV fluids. She is typed and screened. Hemoccult is positive. High-sensitivity troponin is negative at 10.4. Liver function tests are normal. CT abdomen pelvis with p.o. and IV contrast shows There is moderate-sized hiatal hernia with eccentric soft tissue thickeningpossibly related to the hernia though cannot definitively exclude focal mass at the gastroesophageal junction. This may be further assessed endoscopically or with barium swallow if clinically warranted Solid mass in the upper pole the right kidney possibly neoplastic. Patient does know of the spot on her right upper kidney and states that this has been monitored over time and has not changed. No evidence for small bowel obstruction or acute pancreatitis. 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 Patient was discussed with Dr. Ferguson who felt uncomfortable keeping the patient here even the possible blockage and the mesenteric artery narrowing. Patient was discussed with multiple hospitals however there are limited beds. I did speak with [facility] who will put her on a waiting list. I discussed all findings with the patient at length and spent at least 15 minutes at bedside. Patient is amenable to staying at this time. I will transfuse the patient 2 units of blood in the ED. Patient will be signed out to incoming ED physician for monitoring. Although her hemoglobin is 7.2 her vital signs are stable she is not tachycardic or hypotensive. Impression: 1. Acute blood loss anemia 2. GI bleed 3. Possible blockage at GE junction 4. Solid mass right upper kidney attributable 5. Superior mesenteric artery narrowing Lab Data Attestation: I reviewed the patient's lab results. Labs: Laboratory Results - last 24 hr 02/13/21 02/13/21 02/13/21 17:05 17:05 17:05 WBC 9.7 RBC 2.49 L Hgb 7.2 L Hct 22.8 L MCV 91.6 MCH 28.9 MCHC 31.6 L RDW Std Deviation 54.4 H RDW Coeff of Yonis 16.2 H Plt Count 232 MPV 9.9 Immature Gran % (Auto) 0.800 Neut % (Auto) 61.5 Lymph % (Auto) 23.8 Henderson % (Auto) 11.7 H Eos % (Auto) 1.6 Baso % (Auto) 0.6 Absolute Neuts (auto) 5.9 Absolute Lymphs (auto) 2.30 Nucleated RBC % 0 Sodium 132 L Potassium 4.7 Chloride 98 Carbon Dioxide 26.0 Anion Gap 8 BUN 37 H Creatinine 1.65 H Estim Creat Clear Calc 24.37 Est GFR (MDRD) Af Amer 39 L Est GFR (MDRD) Non-Af 32 L BUN/Creatinine Ratio 22.4 H Glucose 139 H Calcium 8.4 L Total Bilirubin 0.20 Direct Bilirubin 0.08 AST 17 ALT 27 Alkaline Phosphatase 65 Troponin I High Sens 10.4 Total Protein 6.8 Albumin 3.2 Globulin 3.6 Lipase 219 Urine Color Urine Clarity Urine pH Ur Specific [place] Urine Protein Urine Glucose (UA) Urine Ketones Urine Occult Blood Urine Nitrite Urine Bilirubin Urine Urobilinogen Ur Leukocyte Esterase Urine RBC Urine WBC Ur Squamous Epith Cells Urine Bacteria Urine Mucus Blood Type Antibody Screen Crossmatch 02/13/21 02/13/21 02/14/21 18:38 18:42 00:12 WBC RBC Hgb Hct MCV MCH MCHC RDW Std Deviation RDW Coeff of Yonis Plt Count MPV Immature Gran % (Auto) Neut % (Auto) Lymph % (Auto) [place] % (Auto) Eos % (Auto) Baso % (Auto) Absolute Neuts (auto) Absolute Lymphs (auto) Nucleated RBC % Sodium Potassium Chloride Carbon Dioxide Anion Gap BUN Creatinine Estim Creat Clear Calc Est GFR (MDRD) Af Amer Est GFR (MDRD) Non-Af BUN/Creatinine Ratio Glucose Calcium Total Bilirubin Direct Bilirubin AST ALT Alkaline Phosphatase Troponin I High Sens Total Protein Albumin Globulin Lipase Urine Color Yellow Urine Clarity Sl. Cloudy Urine pH 7.0 Ur Specific [place] 1.005 Urine Protein Negative Urine Glucose (UA) Normal Urine Ketones Negative Urine Occult Blood Negative Urine Nitrite Negative Urine Bilirubin Negative Urine Urobilinogen Normal Ur Leukocyte Esterase 100 H Urine RBC 0 SEEN Urine WBC 5-10 SEEN Ur Squamous Epith Cells 0-5 SEEN Urine Bacteria 0 SEEN Urine Mucus 0 SEEN Blood Type B POSITIVE Antibody Screen NEGATIVE Crossmatch See Detail Radiography Diagnostic Testing: Radiology Impression Gallbladder Ultrasound 02/13/21 17:00 IMPRESSION: No acute abnormalities. Apparent solid nodule in the upper pole of the right kidney. CT with contrast or MRI recommended for further evaluation. Electronically Signed: Reji Reddy MD at 18:30 EDT , Service support , Abdomen/Pelvis CT 02/13/21 17:25 IMPRESSION: There is moderate-sized hiatal hernia with eccentric soft tissue thickening possibly related to the hernia though cannot definitively exclude focal mass at the gastroesophageal junction. This may be further assessed endoscopically or with barium swallow if clinically warranted Solid mass in the upper pole the right kidney possibly neoplastic. MRI would be helpful for more definitive evaluation No evidence for small bowel obstruction or acute pancreatitis. 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 Duplex sonography of the celiac and superior mesenteric artery may be helpful for further evaluation if clinically warranted Electronically Signed: Reji Reddy MD at 20:55 EDT , Service support , Chest X-Ray 02/13/21 17:28 IMPRESSION: No acute radiographic abnormalities. Electronically Signed: Alvaro Cesar MD at 18:20 EDT Tel , Service support , Discharge Plan Triage Chief Complaint: Abd Pain ED Provider: Derik Yancey Dx/Rx/DC Orders Prescriptions: No Action simvastatin 40 MG tablet 20 mg PO QHS RF: 0 rivaroxaban 20 MG tablet 15 mg PO DAILY RF: 0 lisinopril 40 mg tablet 20 mg PO DAILY RF: 0 furosemide 20 MG tablet 20 mg PO DAILY RF: 0 amlodipine 10 MG tablet 5 mg PO BID RF: 0 multivitamin with minerals 1 EACH tablet 1 tab PO DAILY RF: 0 coenzyme Q10 100 MG capsule 100 mg PO DAILY RF: 0 amiodarone 200 mg tablet 200 mg PO DAILY RF: 0 metoprolol succinate 25 mg tablet extended release 24 hr 25 mg PO DAILY RF: 0 magnesium oxide 200 mg magnesium Tablet 200 mg PO DAILY RF: 0 Primary Care Provider: Mars Hernandez
--- NOTE | 2021-02-13 17:28 | RAD_ITS ---
INDICATION: shoulder pain EXAMINATION/TECHNIQUE: X-RAY - XR Chest 1 View COMPARISON: 03/24/2019. FINDINGS: The lungs are clear. Tortuous and calcified thoracic aorta. The heart is enlarged. Left-sided cardiac device. No pleural effusion or pneumothorax. No acute osseous abnormalities. RAD/Chest 1 View (Portable) IMPRESSION: No acute radiographic abnormalities. Electronically Signed: Alvaro Cesar MD at 18:20 EDT Tel , Service support ,
[2021-02-13] MEDS: 0.9% Normal Saline 1,000 ML 1000 ML IV (17:32)
[2021-02-13 17:40] LABS: AST(SGOT) 17 U/L (15-37); Alanine Aminotransfer ALT/SGPT 27 U/L (13-56); Albumin, Serum 3.2 g/dL (3.2-5.0); Alkaline Phosphatase 65 U/L (45-117); Anion Gap 8 (5-15); BUN 37 mg/dL (7-18); BUN/Creat Ratio 22.4 RATIO (10-20); Bilirubin, Direct 0.08 mg/dL (0.00-0.30); Calcium,Total 8.4 mg/dL (8.5-10.1); Chloride 98 mmol/L (98-107); Creatinine, Serum 1.65 mg/dL (0.55-1.02); EST Glomerular Filtration Rate 32 mL/min (>60); Est Glom Filt Rate - Afr Amer 39 mL/min (>60); Estimated Creatinine Clearance 24.37 ml/min; Globulin 3.6 g/dL (2.2-4.2); Glucose 139 mg/dL (74-106); Lipase 219 U/L (73-393); Potassium 4.7 mmol/L (3.5-5.1); Protein, Total 6.8 g/dL (6.4-8.2); Sodium Level 132 mmol/L (136-145)
[2021-02-13 17:46] LABS: Troponin-I HS 10.4 pg/mL (3.0-53.7)
[2021-02-13 18:51] LABS: Bacteria 0 SEEN /hpf (None Seen); Mucous, Urine 0 SEEN /hpf (<or=2+); Red Blood Cells-Urine 0 SEEN /hpf (0-5)
[2021-02-13 18:54] LABS: Color, Urine Yellow (Yellow); Glucose, Dipstick Normal (Normal); Ketone-Dipstick Negative (Negative); Leukocyte Esterase-Dipstick 100 /ul (Negative); Nitrite-Dipstick Negative (Negative); Occult Blood-Urine Negative /ul (Negative); Protein-Dipstick Negative (Negative); Specific Gravity, Urine 1.005 (1.002-1.030); Urine Bilirubin Dipstick Negative (Negative); Urine Clarity Sl. Cloudy (Clear); Urine Urobilinogen Normal (Normal)
[2021-02-13 19:06] LABS: Squamous Epithelial Cells - UA 0-5 SEEN /hpf (5-10); White Blood Cells 5-10 SEEN /hpf (0-5)
[2021-02-13 19:29] VITALS: BP 148/67; PULSE 82; RESP 17; O2SAT 96
[2021-02-13 22:15] VITALS: BP 139/88; PULSE 76; RESP 15; O2SAT 98
--- NOTE | 2021-02-13 22:15 | ED.RN ---
TALKED WITH TRANSFER LINE AT [facility]. THEY TOOK LAB VALUE AND INFO, STATES THEY WILL NOT HAVE A BED TIL LATER TOMORROW IF AT ALL AT [facility]
--- NOTE | 2021-02-13 23:40 | ED.RN ---
PT IS AWARE OF THE ATTEMPTS TO GET PT TRANSFERED. CAME OUT REQUESTING TO JUST TAKE PT HOME. EXPLAINED AGAIN WHAT THE SITUATION IS AND EXPLAINED THE DR WOULD COME IN AND TALK WITH THEM AGAIN. PT STATES SHE IS FEELING BETTER AND ARE BOTH STTATING GÓMEZ FEEL SHE CAN GO HOME AND F/U WITH HER DR. PHYSICIAN IS AWARE OF PTS REQUEST.
[2021-02-14] VITALS (8 sets, daily range): BP systolic 129–158; BP diastolic 41–68; PULSE 60–82; RESP 14–18; TEMP 36.2–36.7; O2SAT 95–98
--- NOTE | 2021-02-14 04:48 | ED.RN ---
update on patient condition and status given to transfer center at this time
== END 2021-02-14 08:10 | disposition left against medical advice (07) ==
PROVIDERS: Emergency Provider Student in an Organized Health Care Education/Training Program; PCP Family Medicine
DX: D62 Acute posthemorrhagic anemia (principal); K92.2 Gastrointestinal hemorrhage, unspecified; K55.059 Acute (reversible) ischemia of intestine, part and extent unspecified; N28.89 Other specified disorders of kidney and ureter; I48.0 Paroxysmal atrial fibrillation; F41.9 Anxiety disorder, unspecified; I11.0 Hypertensive heart disease with heart failure; I50.9 Heart failure, unspecified; E11.9 Type 2 diabetes mellitus without complications; E66.9 Obesity, unspecified; E78.5 Hyperlipidemia, unspecified; Z79.02 Long term (current) use of antithrombotics/antiplatelets; Z79.899 Other long term (current) drug therapy
CPT/HCPCS: 36430; 71045; 74177; 76705; 80048; 80076; 81001; 82274; 83690; 84484; 85025; 86850; 86900; 86901; 86920; 87426; 93005; 96360; 96361; 99284; J7030; P9040; Q9967

== ENCOUNTER → 2021-06-17 08:29 | Outpatient (CLI) | payer MEDICARE, SELFPAY ==
[2021-06-17] VITALS (7 sets, daily range): BP systolic 118–150; BP diastolic 52–64; PULSE 60–81; RESP 16; TEMP 36–36.4; O2SAT 98–100
[2021-06-17] MEDS: 0.9% NaCl Peripheral Flush Adult/Peds IV (08:45)
== END ==
PROVIDERS: PCP Family Medicine; Referring Provider Physician Assistant; Visit Provider Physician Assistant
DX: D50.0 Iron deficiency anemia secondary to blood loss (chronic) (principal)
CPT/HCPCS: 36415; 36430; 86850; 86900; 86901; 86920; 86922; J7040; P9016; A4216

== ENCOUNTER → 2021-12-30 | Outpatient (CLI) | payer MEDICARE, SELFPAY ==
[2021-12-30] VITALS (8 sets, daily range): BP systolic 110–131; BP diastolic 46–66; PULSE 66–101; RESP 14–16; TEMP 36.1–36.3; O2SAT 97–99
== END | disposition home or self-care (01) ==
LOC: MEDOUTP 08:09
PROVIDERS: PCP Family Medicine; Referring Provider Physician Assistant; Visit Provider Physician Assistant
DX: D50.0 Iron deficiency anemia secondary to blood loss (chronic) (principal)
CPT/HCPCS: 36415; 36430; 86850; 86900; 86901; 86920; 86922; J7030; P9016; A4216

== ENCOUNTER 2023-04-07 15:20 | Emergency (ER) | payer MEDICARE, SELFPAY ==
[2023-04-07 15:21] VITALS: BP 181/56; PULSE 86; RESP 16; TEMP 36; O2SAT 93; BMI 26.6
--- NOTE | 2023-04-07 15:27 | EKG12_ITS ---
Test Reason : CP Blood Pressure : / mmHG Vent. Rate : 072 BPM Atrial Rate : 000 BPM P-R Int : 000 ms QRS Dur : 110 ms QT Int : 452 ms P-R-T Axes : 000 -23 023 degrees QTc Int : 494 ms Atrial fibrillation Moderate voltage criteria for LVH, may be normal variant ( R in aVL , Newell product ) Prolonged QT Abnormal ECG Confirmed by TORSTEN UGARTE, MIKE ([id number]), research editor TAMEKA MCKENZIE ([id number]) on 04/13/2023 7:07:40 AM Referred By: Confirmed By:MIKE SARMIENTO MD
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
== END 2023-04-07 17:08 | disposition home or self-care (01) ==
PROVIDERS: Emergency Provider Emergency Medicine; PCP Family Medicine; Visit Provider Emergency Medicine
DX: S20.20XA Contusion of thorax, unspecified, initial encounter (principal); I11.0 Hypertensive heart disease with heart failure; I50.9 Heart failure, unspecified; I71.21 Aneurysm of the ascending aorta, without rupture; I48.0 Paroxysmal atrial fibrillation; E11.9 Type 2 diabetes mellitus without complications; E78.5 Hyperlipidemia, unspecified; V43.62XA Car passenger injured in collision with other type car in traffic accident, initial encounter
CPT/HCPCS: 70450; 71250; 72125; 93005; 99283

== ENCOUNTER 2025-01-07 12:46 | Observation (INO) | payer MEDICARE, SELFPAY ==
[2025-01-07] VITALS (16 sets, daily range): BP systolic 127–158; BP diastolic 55–67; PULSE 74–83; RESP 12–19; TEMP 36.3–36.8; O2SAT 93–100; BMI 27.5; BMI 26.9
--- NOTE | 2025-01-07 13:06 | ED.VIS.DYS ---
HPI <FERNANDO Uriostegui - Last Filed: 01/07/25 16:48> History of Present Illness Chief Complaint: Shortness of Breath Narrative Narrative: 79-year-old female with PMH of HTN, HLD, DM2, aortic valve replacement, pacemaker, A-fib no longer on blood thinners status post Watchman device, peripheral arterial disease, thoracic aortic aneurysm, congestive heart failure presents with several weeks of persistent shortness of breath and bilateral lower extremity edema. She gives background that in September 2023 she had surgery in [place] for some type of intra-abdominal artery blockage and was started on Plavix in addition to her baseline aspirin 81 mg. She states she was also having issues with her congestive heart failure. She came home at the end of October and has been taking her normal Lasix 40 mg twice daily and spironolactone 12.5 mg twice daily without improvement. She saw her [facility] a operator Dr. Franco on January 01. He changed it to Lasix 80 mg in the morning and 40 mg for 5 days which she finished yesterday and went back to 40 mg this morning but she states she has had no improvement. She is mildly short of breath at rest but especially with walking around. She having difficulty getting from the kitchen to the bathroom. Her legs feel so tight and swollen she is having difficulty bending over to change her close. She has no chest pain. No fever or chills. She has had some phlegm which she thinks is from allergies but no significant cough. REPLACED BY [facility] <FERNANDO Uriostegui - Last Filed: 01/07/25 16:48> REPLACED BY [facility] Medical History (Updated 01/07/25 @ 17:[address] Luis Armando Harry MD) Skin tear of left forearm without complication Skin cancer Cardiac arrhythmia CHF exacerbation Brain aneurysm Anxiety Family history of brain aneurysm PAD (peripheral artery disease) PAF (paroxysmal atrial fibrillation) Obesity (BMI 30.0-34.9) Laceration of right middle finger Heart disease Diabetes History of cancer Fever HTN (hypertension) Diabetes mellitus type 2 in obese Chest pain, musculoskeletal HLD (hyperlipidemia) URI (upper respiratory infection) Bronchospasm with bronchitis, acute Home Medications Medication Instructions Recorded Last Taken Type furosemide 20 mg tablet 40 mg PO DAILY diuretic 11/15/17 03/24/19 History metoprolol succinate 25 mg 50 mg PO DAILY daily 02/13/21 Unknown History tablet,extended release 24 hr aspirin 81 mg capsule 81 mg PO DAILY 01/07/25 Unknown History atorvastatin 40 mg tablet 40 mg PO DAILY daily 01/07/25 Unknown History clopidogrel 75 mg tablet 75 mg PO DAILY 01/07/25 Unknown History ferrous sulfate 325 mg (65 mg 325 mg PO DAILY 01/07/25 Unknown History iron) tablet (Feosol) metolazone 2.5 mg tablet 2.5 mg PO DAILY PRN edema 01/07/25 Unknown History pantoprazole 40 mg tablet,delayed 40 mg PO BID daily 01/07/25 Unknown History release potassium chloride 10 mEq 10 meq PO DAILY daily 01/07/25 Unknown History tablet,extended release psyllium 3.4 gram/5.8 gram oral 3.4 g PO BID daily 01/07/25 Unknown History powder spironolactone 25 mg tablet 12.5 mg PO BID daily 01/07/25 Unknown History Allergy/AdvReac Type Severity Reaction Status Date / Time propofol AdvReac Mild Low blood Verified 01/07/25 12:47 pressure Family History Father Heart disease High cholesterol Mother Heart disease Surgical History history skin cancer surgery history bilateral ear surgeries History of hysterectomy H/O aortic valve replacement Social History Smoking Status: Never smoker alcohol intake: current alcohol intake frequency: a few times a month substance use type: does not use ROS <FERNANDO Uriostegui - Last Filed: 01/07/25 16:48> ROS ED ROS Narrative Constitutional: Negative for fever, chills, malaise. CVS: Negative for palpitations, chest pain. Respiratory: Positive for shortness of breath, orthopnea. GI: Negative for abdominal pain, nausea, vomiting. EXAM <FERNANDO Uriostegui - Last Filed: 01/07/25 16:48> Physical Exam Narrative Exam Narrative: CONST: Patient sitting in no acute distress. EYES: Normal inspection. NECK: Normal inspection. RESP: No respiratory distress, very diminished throughout. CVS: Irregularly irregular rhythm, no murmur, no gallop. ABD: Soft and nontender, no guarding or rebound, nondistended. SKIN: Color normal, no rash, warm, dry, intact. EXTREMITIES: Extremities are tight with pitting edema from the proximal thighs down. No erythema or warmth. Brisk cap refill. NEURO: Alert and answering questions appropriately. PSYCH: Normal affect. Const Vital Signs: 01/07/25 12:47 01/07/25 13:28 01/07/25 13:28 Temperature 97.7 F L Temperature Source Oral Pulse Rate 78 Respiratory Rate 16 18 Respiratory Effort Respiratory Depth Respiratory Pattern Blood Pressure 135/57 H Blood Pressure Mean 83 Pulse Ox 100 100 95 Oxygen Delivery Method Room Air Room Air Room Air 01/07/25 13:31 01/07/25 13:47 01/07/25 14:00 Temperature Temperature Source Pulse Rate 81 81 Respiratory Rate 17 16 Respiratory Effort Normal Short of Breath Respiratory Depth Normal Respiratory Pattern Tachypnea Blood Pressure 148/61 H 148/61 H Blood Pressure Mean 90 90 Pulse Ox 100 100 Oxygen Delivery Method Room Air Room Air Room Air 01/07/25 15:23 01/07/25 16:03 01/07/25 16:28 Temperature 97.7 F L Temperature Source Pulse Rate 75 80 75 Respiratory Rate 13 19 H 19 H Respiratory Effort Respiratory Depth Respiratory Pattern Blood Pressure 146/67 H 158/56 H Blood Pressure Mean 93 90 Pulse Ox 100 100 100 Oxygen Delivery Method Room Air Room Air <Dr. Luis Armando Harry MD - Last Filed: 01/07/25 17:04> Physical Exam Const Vital Signs: 01/07/25 12:47 01/07/25 13:28 01/07/25 13:28 Temperature 97.7 F L Temperature Source Oral Pulse Rate 78 Respiratory Rate 16 18 Respiratory Effort Respiratory Depth Respiratory Pattern Blood Pressure 135/57 H Blood Pressure Mean 83 Pulse Ox 100 100 95 Oxygen Delivery Method Room Air Room Air Room Air 01/07/25 13:31 01/07/25 13:47 01/07/25 14:00 Temperature Temperature Source Pulse Rate 81 81 Respiratory Rate 17 16 Respiratory Effort Normal Short of Breath Respiratory Depth Normal Respiratory Pattern Tachypnea Blood Pressure 148/61 H 148/61 H Blood Pressure Mean 90 90 Pulse Ox 100 100 Oxygen Delivery Method Room Air Room Air Room Air 01/07/25 15:23 01/07/25 16:03 01/07/25 16:28 Temperature 97.7 F L Temperature Source Pulse Rate 75 80 75 Respiratory Rate 13 19 H 19 H Respiratory Effort Respiratory Depth Respiratory Pattern Blood Pressure 146/67 H 158/56 H Blood Pressure Mean 93 90 Pulse Ox 100 100 100 Oxygen Delivery Method Room Air Room Air [facility] <FERNANDO Uriostegui - Last Filed: 01/07/25 16:48> [facility] Narrative Medical decision making narrative: History gathered from: Patient and spouse Differential includes but not limited to CHF, ACS, pneumonia 79-year-old female presents with several weeks of dyspnea and bilateral lower extremity edema. She has had tight swelling from both thighs and down for several weeks. Over the last 5 days she has been taking an increased dose of Lasix as instructed by her a operator without improvement. She is awake alert no distress. Vitals are stable. She is 100% on room air at rest. Lung sounds are very diminished, hard to hear first crackles. Both legs are tight and edematous with pitting edema from both proximal thighs downward. There is no signs of infection. Neurovascularly intact. Labs show normal white count of 6.3 and stable hemoglobin at 9.4. Sodium is 129. Her creatinine of 1.77 is similar to previous. Glucose is 194. proBNP is significantly up at 10,409. Troponin is 71 but EKG is nonischemic and she does not have chest pain and second troponin is stable at 68 so I suspect this is elevated secondary to congestive heart failure. She was given IV Lasix 40 mg. The attending discussed the case with hospitalist for admission. External records reviewed: 11/15/2017 echocardiogram EF 55%. Severe diastolic dysfunction. I have personally performed a face to face assessment of the patient and have reviewed the COLTON Note. I performed a substantive portion of the visit including all aspects of the following. My heck findings include: History is patient presents with orthopnea, dyspnea with minimal activity swelling of her legs that are painful because of how taut they are. She has a history congestive heart failure. 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 She was hospitalized for 23 days. She is followed by a operator through the [facility]. She states she has difficulty contacting him and seeing him. She was offered option to follow-up with a operator in [place]. Patient denies fever, chills night sweats. Patient denies rhinorrhea, congestion postnasal drainage. Patient does have a slight cough. She denies abdominal pain, nausea, vomit or diarrhea. Denies constipation. She denies dysuria, frequency, urgency or hematuria. She denies decreased or increased urine output. She states when she increases her Lasix she does urinate more. She did double her dose today. She was on a short course where her Lasix was increased. In spite of that she has gained some amount of weight and swelling. Exam is vital signs are marked for slight elevation of blood pressure. She is not hypoxic. HEENT exam is unremarkable. Trachea is midline. There is no lymphadenopathy. Patient does have JVD. Patient does have rales bilaterally. Heart is regular without murmur, gallop or rub. Abdomen is slightly distended and tympanitic. Bowel sounds are diminished. There is no palp pulsatile mass or abdominal bruit. She has no guarding or peritoneal findings. Lower extremity exam reveals marked pitting edema. She also has some pitting edema of the sacral area. Medical Decision Making concern patient has exacerbation of congestive heart failure. Will obtain cardiac markers to rule out ischemic cause. She states she is compliant with her medication and diet. She has not had an echo in some time. Her last echo was 2017 and her EF at that time was 55%. Chest x-ray reveals mild cephalization. There is no effusion. Cardiac size is within normal limits. Osseous structures reveal no acute abnormality. EKG does not reveal any acute ischemic changes. 1st and 2nd troponin were slightly elevated. Delta is negative. Suspect the elevated troponin is due to the fact that she has heart failure. Her BNP is markedly elevated at greater than 10,000. Other additions or changes: Spoke with Dr. Vera Heller the hospitalist. Full admit PCU History & Record Review Discussion w/independent historian: Patient and Family Additional record(s) reviewed:: Prior outpatient record, Prior ED visit and Prior labs Lab Data Attestation: I reviewed the patient's lab results. Labs: Laboratory Results - last 24 hr 01/07/25 01/07/25 13:00 14:54 WBC 6.3 RBC 3.29 L Hgb 9.4 L Hct 29.6 L MCV 90.0 MCH 28.6 MCHC 31.8 L RDW Std Deviation 65.6 H RDW Coeff of Yonis 19.9 H Plt Count 165 MPV 9.6 Immature Gran % (Auto) 0.300 Neut % (Auto) 59.8 Lymph % (Auto) 24.2 Maury % (Auto) 12.9 H Eos % (Auto) 1.8 Baso % (Auto) 1.0 Absolute Neuts (auto) 3.8 Absolute Lymphs (auto) 1.52 Nucleated RBC % 0 Anisocytosis 1+ Sodium 129 L Potassium 4.2 Chloride 91 L Carbon Dioxide 23.9 Anion Gap 15 BUN 47 H Creatinine 1.77 H Estim Creat Clear Calc 24.26 L Est GFR (MDRD) Non-Af 29 L BUN/Creatinine Ratio 26.4 H Glucose 194 H Calcium 8.8 Troponin T High Sens 71 H* Troponin T Hi Sens 2 Hr 68 H* [place] [address] H Radiography Diagnostic Testing: Clinical Impression(s) from Imaging Studies Chest X-Ray 01/07/25 13:19 IMPRESSION: Findings consistent with mild congestive heart failure. Reading Location: [facility] ED attending interpretation of 2 view chest x-ray shows mild congestive heart failure. EKG Initial EKG: Attestation: I personally reviewed and interpreted this EKG as follows: Interpretation: No Acute Injury Pattern and Atrial Fibrillation Comments: Atrial fibrillation at 77 bpm, occasional ventricular paced complexes Left anterior fascicular block Nonspecific ST changes, no STEMI <Dr. Luis Armando Harry MD - Last Filed: 01/07/25 17:04> [facility] MDM Narrative Medical decision making narrative: History gathered from: Patient and spouse 79-year-old female presents with several weeks of dyspnea and bilateral lower extremity edema. She has had tight swelling from both thighs and down for several weeks. Over the last 5 days she has been taking an increased dose of Lasix as instructed by her a operator without improvement. She is awake alert no distress. Vitals are stable. She is 100% on room air at rest. Lung sounds are very diminished, hard to hear first crackles. Both legs are tight and edematous with pitting edema from both proximal thighs downward. There is no signs of infection. Neurovascularly intact. Labs show normal white count of 6.3 and stable hemoglobin at 9.4. Sodium is 129. Her creatinine of 1.77 is similar to previous. Glucose is 194. proBNP is significantly up at 10,409. Troponin is 71 but EKG is nonischemic and she does not have chest pain and second troponin is stable at 68 so I suspect this is elevated secondary to congestive heart failure. External records reviewed: 11/15/2017 echocardiogram EF 55%. Severe diastolic dysfunction. I have personally performed a face to face assessment of the patient and have reviewed the COLTON Note. I performed a substantive portion of the visit including all aspects of the following. My heck findings include: History is patient presents with orthopnea, dyspnea with minimal activity swelling of her legs that are painful because of how taut they are. She has a history congestive heart failure. 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 She was hospitalized for 23 days. She is followed by a operator through the [facility]. She states she has difficulty contacting him and seeing him. She was offered option to follow-up with a operator in [place]. Patient denies fever, chills night sweats. Patient denies rhinorrhea, congestion postnasal drainage. Patient does have a slight cough. She denies abdominal pain, nausea, vomit or diarrhea. Denies constipation. She denies dysuria, frequency, urgency or hematuria. She denies decreased or increased urine output. She states when she increases her Lasix she does urinate more. She did double her dose today. She was on a short course where her Lasix was increased. In spite of that she has gained some amount of weight and swelling. Exam is vital signs are marked for slight elevation of blood pressure. She is not hypoxic. HEENT exam is unremarkable. Trachea is midline. There is no lymphadenopathy. Patient does have JVD. Patient does have rales bilaterally. Heart is regular without murmur, gallop or rub. Abdomen is slightly distended and tympanitic. Bowel sounds are diminished. There is no palp pulsatile mass or abdominal bruit. She has no guarding or peritoneal findings. Lower extremity exam reveals marked pitting edema. She also has some pitting edema of the sacral area. Medical Decision Making concern patient has exacerbation of congestive heart failure. Will obtain cardiac markers to rule out ischemic cause. She states she is compliant with her medication and diet. She has not had an echo in some time. Her last echo was 2017 and her EF at that time was 55%. Chest x-ray reveals mild cephalization. There is no effusion. Cardiac size is within normal limits. Osseous structures reveal no acute abnormality. EKG does not reveal any acute ischemic changes. 1st and 2nd troponin were slightly elevated. Delta is negative. Suspect the elevated troponin is due to the fact that she has heart failure. Her BNP is markedly elevated at greater than 10,000. Other additions or changes: Spoke with Dr. Vera Heller the hospitalist. Full admit PCU Lab Data Labs: Laboratory Results - last 24 hr 01/07/25 01/07/25 13:00 14:54 WBC 6.3 RBC 3.29 L Hgb 9.4 L Hct 29.6 L MCV 90.0 MCH 28.6 MCHC 31.8 L RDW Std Deviation 65.6 H RDW Coeff of Yonis 19.9 H Plt Count 165 MPV 9.6 Immature Gran % (Auto) 0.300 Neut % (Auto) 59.8 Lymph % (Auto) 24.2 Maury % (Auto) 12.9 H Eos % (Auto) 1.8 Baso % (Auto) 1.0 Absolute Neuts (auto) 3.8 Absolute Lymphs (auto) 1.52 Nucleated RBC % 0 Anisocytosis 1+ Sodium 129 L Potassium 4.2 Chloride 91 L Carbon Dioxide 23.9 Anion Gap 15 BUN 47 H Creatinine 1.77 H Estim Creat Clear Calc 24.26 L Est GFR (MDRD) Non-Af 29 L BUN/Creatinine Ratio 26.4 H Glucose 194 H Calcium 8.8 Troponin T High Sens 71 H* Troponin T Hi Sens 2 Hr 68 H* [place] [address] H Radiography Diagnostic Testing: Clinical Impression(s) from Imaging Studies Chest X-Ray 01/07/25 13:19 IMPRESSION: Findings consistent with mild congestive heart failure. Reading Location: [id number] Management Discussion w/another healthcare provider: Hospitalist (Documented under the attending note in the MDM narrative portion of the EMR) Discharge Plan Triage Chief Complaint: Shortness of Breath ED Midlevel Provider: Sheree Simmons ED Provider: Luis Armando Harry Dx/Rx/DC Orders Clinical Impression: Acute exacerbation of CHF (congestive heart failure), Anasarca, History of atrial fibrillation, Failure of outpatient treatment, PAD (peripheral artery disease), HLD (hyperlipidemia), Diabetes mellitus type 2 in obese, Elevated blood pressure reading with diagnosis of hypertension Primary Care Provider: Deysi Nicholson NP
[2025-01-07 13:07] LABS: Hematocrit 29.6 % (37-47); Hemoglobin 9.4 g/dL (12.0-15.0); Immature Granulocytes Count 0.020 X10^3/uL (0.0-0.0); Mean Corp Hgb Conc 31.8 g/dL (32-36); Mean Corpuscular Volume 90.0 fL (81-99); Mean Platelet Vol. 9.6 fl (6.2-12.0); NRBC Flagged by Analyzer 0 % (0-5); POSITIVE MORPHOLOGY YES; Platelet Count 165 K/mm3 (150-450); RBC Distribution Width CV 19.9 % (11.6-14.6); RBC Distribution Width SD 65.6 fl (35.1-43.9); Red Blood Count 3.29 M/mm3 (4.2-5.4); White Blood Count 6.3 K/mm3 (4.4-11.0)
[2025-01-07 13:08] LABS: Differential Indicated SCAN CRITERIA MET
--- NOTE | 2025-01-07 13:19 | RAD_ITS ---
PROCEDURE: CHEST PA AND LATERAL 01/07/2025 REASON FOR EXAM: DYSPNEA TECHNIQUE: CHEST PA AND LATERAL COMPARISON: Portable chest, 02/13/2021. FINDINGS: There is cardiomegaly, pulmonary venous hypertension and pulmonary interstitial edema consistent with congestive heart failure. There are no pleural effusions. There is calcific vascular disease of the thoracic aorta. There is a dual lead pacemaker. The upper abdominal bowel gas pattern is normal. There are no bony abnormalities of the chest. RAD/Chest PA and Lateral IMPRESSION: Findings consistent with mild congestive heart failure. Reading Location: [id number]
--- NOTE | 2025-01-07 13:24 | EKG12_ITS ---
Test Reason : SOB Blood Pressure : */* mmHG Vent. Rate : 77 BPM Atrial Rate : * BPM P-R Int : * ms QRS Dur : 114 ms QT Int : 440 ms P-R-T Axes : * -63 -53 degrees QTcB Int : 497 ms Atrial fibrillation with occasional ventricular-paced complexes Pulmonary disease pattern Left anterior fascicular block Minimal voltage criteria for LVH, may be normal variant ( Landen product ) Nonspecific ST and T wave abnormality QTcB >= 480 msec Abnormal ECG Confirmed by TORSTEN UGARTE, MIKE ([id number]), staff editor ROJELIO TADEO ([id number]) on 01/08/2025 11:01:47 AM Referred By: Confirmed By: MIKE SARMIENTO MD
--- OUTSIDE RECORDS SUMMARY | 2025-01-07 13:28 | XMS RPT_ITS | CCD ---
Author Organization [facility] Care Team Providers Care Wire Charger Name Role Phone Cruz Le Primary Care Provider SYSTEM, PROVIDER NOT IN Referring Unavaila ble SYSTEM, PROVIDER NOT IN Attending Unavaila ble SYSTEM, PROVIDER NOT IN Referring Unavaila ble SYSTEM, PROVIDER NOT IN Attending Unavaila ble SYSTEM, PROVIDER NOT IN Referring Unavaila ble SYSTEM, PROVIDER NOT IN Attending Unavaila ble Doreen Le PA-C Primary Care Provider No, Referral Unavailable Unavailable Yin Agustin MD Unavailable Doreen Le PA-C Primary Care Provider Yin Agustin MD Unavailable Helen CAMACHO, Sheridan Collins Unavailable Unavailable Carla Burdick MD Unavailable Carla Burdick MD Unavailable Yin Agustin MD Unavailable Carla Burdick MD Unavailable Doreen Le PA-C Primary Care Provider Carla Burdick MD Unavailable Sonny Lund MD Unavailable Doreen Le PA-C Primary Care Provider No, Referral Unavailable Unavailable Yin Agustin MD Unavailable [phone] Carla Burdick MD Unavailable Sonny Lund MD Unavailable Sonny Lund MD Unavailable No, Referral Unavailable Unavailable Felix Joseph MD Yin Unavailable [phone] Carla Burdick MD Unavailable Doreen Le PA-C Primary Care Provider Doreen LE Referring Unavailable Doreen LE Primary Care Unavailable Doreen LE Primary Care Unavailable [place], Mars Referring Unavailable [place], Mars Primary Care Unavailable Bi Perez Attending Unavailable [place], Mars Primary Care Unavailable Dominguez Gonzales Attending Unavailable Carla Burdick MD Unavailable Sonny Lund MD Unavailable Rey HAMLIN, Dianne Taylor Primary Care Provider Unavailable Haagen VOLUNTEER SERVICES ASSISTANT.SIGN BOARD ERECTOR, Deysi Unavailable Suppan VOLUNTEER SERVICES ASSISTANT.SIGN BOARD ERECTOR, Sandra A Unavailable [phone] Sonny Lund MD Unavailable Haagen VOLUNTEER SERVICES ASSISTANT.SIGN BOARD ERECTOR, Deysi Primary Care Provider Sonny Lund MD Unavailable JOSE CARLOS GUN Referring Unavailable HAAGEN, DEYSI Primary Care Unavailable ALBIN GU Attending Unavailable LE, DIANNE TAYLOR Primary Care Unavailable ALBIN GU Attending Unavailable PROVIDER, UNKNOWN Referring Unavailable HAAGEN, DEYSI Primary Care Unavailable ALBIN GU Attending Unavailable HAAGEN, DEYSI Primary Care Unavailable HAAGEN, DEYSI Primary Care Unavailable PROVIDER, UNKNOWN Admitting Unavailable PROVIDER, UNKNOWN Attending Unavailable PROVIDER, UNKNOWN Consulting Unavailable HAAGEN, DEYSI Primary Care Unavailable CARLA BURDICK Attending Unavailable REY, DIANNE HAASORY Primary Care Unavailable HAAGEN, DEYSI Attending Unavailable LE, DIANNE CLAUDIA Primary Care Unavailable HAAGEN, DEYSI Referring Unavailable LARS SILVA Attending Unavailable LARS SILVA Referring Unavailable HAAGEN, DEYSI Primary Care Unavailable CARLA BURDICK Attending Unavailable HAAGEN, DEYSI Primary Care Unavailable DIANNE LE Primary Care Unavailable CARLA BURDICK Attending Unavailable HAAGEN, DEYSI Primary Care Unavailable ALBIN GU Referring Unavailable CARLA BURDICK Referring Unavailable HAAGEN, DEYSI Primary Care Unavailable LARS SILVA Referring Unavailable HAAGEN, DEYSI Primary Care Unavailable YING TORRES Referring Unavailable REY, DIANNE TAYLOR Primary Care Unavailable CARLA BURDICK Attending Unavailable [facility] DEYSI [facility] Unavailable CARLA BURDICK Referring Unavailable [facility] Unavailable DIANNE LE Primary Care Unavailable MELIDA KOO Referring Unavailable SHAYE DOMINGO Attending Unavailable [facility] Unavailable SHAYE DOMINGO Referring Unavailable [facility] Unavailable Allergies Allergy Classification Reported Allergen(s) Allergy Type Date of Onset Reaction(s) Facility (2 sources) metFORMIN Drug Allergy 4 Diarrhea [facility] (20 sources) Protamines; 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: [PROTAMINE] Drug Allergy 2 Anaphylaxis [facility] Work Phone: (20 sources) Propofol; 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: [PROPOFOL] Drug Allergy 3 Other: See Comments [facility] (1 source) Propofol Drug Allergy 4 [facility] Medications Current Medications Medication Drug Class(es) Dates Sig (Normalized) Sig (Original) acetaminophen 500 mg oral tablet (20 sources) Start: 10-22-2020 take 500-1000 mg by mouth every six hours as needed acetaminophen (TYLENOL) 500 mg tablet Take 1-2 tablets by mouth every 6 hours as needed. 10/22/2020 Active Comment on above: Take 1-2 tablets by mouth every 6 hours as needed. amoxicillin 875 mg / clavulanate 125 mg oral tablet (1 source) Penicillin-class Antibacterial Start: 12-07-2023 End: 12-17-2023 take 1 tablet by mouth twice daily amoxicillin-clavul anate potassium (AUGMENTIN) 875-125 mg per tablet Take 1 tablet by mouth two times a day for 10 days. 20 tablet 0 12/07/2023 12/17/2023 Active aspirin 81 mg chewable tablet (20 sources) Platelet Aggregation Inhibitor, Nonsteroidal Anti-inflammatory Drug Start: 01-13-2022 End: 11-20-2025 take 1 tablet by mouth once daily aspirin 81 mg chewable tablet Indications: History of prosthetic aortic valve replacement , Acute mesenteric ischemia (HCC) Take 1 tablet by mouth once daily. 90 tablet 3 11/20/2024 11/20/2025 Active take 1 tablet by mouth once jt y aspirin EC [address] Take 81 mg by mouth daily. 0 Active Comment on above: Take 1 tablet by kalyan th once daily. atorvastatin 40 mg oral tablet (14 sources) HMG-CoA Reductase Inhibitor Start: 5 End: 5 take 1 tablet by mouth once daily atorvastatin (LIPITOR) 40 mg tablet Indications: Hyperlipidemia with target LDL less than 70 Take 1 tablet by mouth once daily. 90 tablet 3 11/20/2024 Active Blood Pressure Monitor (BLOOD PRESSURE KIT) (20 sources) Start: Blood Pressure Monitor (BLOOD PRESSURE KIT) Indications: Primary hypertension 1 Each once daily. 1 Each 07/07/2022 Suspended Start: 07-07-2022 Blood Pressure Monitor (BLOOD PRESSURE KIT) Indications: Primary hypertension 1 Each once daily. 1 Each 07/07/2022 Active Start: 07-07-2022 Blood Pressure Monitor (BLOOD PRESSURE KIT) Indications: Primary hypertension 1 Each once daily. 1 Each 0 07/07/2022 Suspended Start: 07-07-2022 Blood Pressure Monitor (BLOOD PRESSURE KIT) Indications: Primary hypertension 1 Each once daily. 1 Each 0 07/07/2022 Active Comment on above: 1 Each once daily. Calcium Carbonate (2 sources) take 1 tablet by mouth once daily Calcium Carbonate (CALCIUM 600 PO) Take by mouth. One tab daily 0 Active sugar-free cholestyramine resin 4000 mg powder for oral suspension (2 sources) Bile Acid Sequestrant Start: 07-01-20 17 take 210 g by mouth once daily at dinner Cholestyramine Light (QUESTRAN LIGHT) 4 GM/DOSE Powder Take 210 g by mouth Daily (with dinner). 0 07/01/2017 Active clopidogrel 75 mg oral tablet (20 sources) [id number] Platelet Inhibitor Start: 10-12-19 25 End: 11-21-19 25 take 1 tablet by mouth once daily clopidogrel (PLAVIX) 75 mg tablet Indications: Acute mesenteric ischemia (HCC) Take 1 tablet by mouth once daily. 90 tablet 3 11/20/2024 Active Start: 03-04-2022 End: 11-22-2023 take 1 tablet by mouth once daily clopidogrel (PLAVIX) 75 mg tablet Take 1 tablet by mouth once daily. Only for 6 months. After that stay on ASA 81 mg daily, 90 tablet 1 03/04/2022 11/22/2023 Discontinued (Other) Comment on above: Take 1 tablet by kalyan th once daily. Only for 6 months. After that stay on ASA 81 mg daily, Coenzyme Q10 (COQ10 PO) (2 sources) take 1 tablet by mouth once daily Coenzyme Q10 (COQ10 PO) Take by mouth. One tab daily 0 Active dapagliflozin 10 mg oral tablet (6 sources) Sodium-Glucose Cotransporter 2 Inhibitor Start: 12-14-19 End: 03-13-20 take 1 tablet by mouth once daily dapagliflozin propanediol (FARXIGA) 10 mg tablet Take 1 tablet by mouth once daily. 90 tablet 12/13/2024 03/13/2025 Active ferrous sulfate 325 mg oral tablet (19 sources) Start: 12-13-19 End: 03-12-20 take 1 tablet by mouth once daily ferrous sulfate (IRON) 325 mg (65 mg iron) tablet Take 1 tablet by mouth once daily. 90 tablet 12/12/2024 03/12/2025 Active Start: 11-12-2023 End: 12-12-2023 take 1 tablet by mouth once daily ferrous sulfate (IRO N) 325 mg (65 mg iron) tablet Take 1 tablet by mouth once daily. 30 tablet 0 11/12/2023 12/12/2023 Active Start: 04-06-2022 take 1 tablet by kalyan th twice daily at mealtime ferrous sulfate 325 mg (65 mg iron) tablet Take 1 tablet by mouth twice daily with meals. 90 tablet 1 04/06/2022 Active Comment on above: Take 1 tablet by kalyan th twice daily with meals. furosemide 40 mg oral tablet (20 sources) Loop Diuretic Start: 12-19-2024 End: 01-01-2025 take 1 tablet by mouth twice daily furosemide (LASIX) 40 mg tablet Take 1 tablet by mouth two times a day. 180 tablet 3 01/01/2025 Active Start: 12-19-2024 End: 12-19-2024 furosemide 40 mg injection ( LASIX) Start: 12-19-2024 End: 12-19-2024 40 mg, INTRAVENOUS, ONCE, 1 dose, On Wed12/19/24 at 1130 Start: 11-03-2024 End: 11-03-2024 furosemide 20 mg injection ( LASIX) Start: 11-03-2024 End: 11-03-2024 20 mg, INTRAVENOUS, ONCE, 1 dose, On Wed11/03/24 at 1000 Start: 11-25-2023 End: 01-16-2025 take 2 tablets by mouth once daily, then take 3 tablets by mouth every twenty-four hours furosemide (LASIX) 20 mg tablet Indications: Chronic diastolic (congestive) heart failure (HCC) Take 2 tablets by mouth once daily. TAKE AN EXTRA 20 MG in the afternoon if you note greater than 3 lbs weight gain in 24 hours 270 tablet 3 01/17/2024 11/06/2024 Discontinued Start: 11-13-2023 End: 12-13-2023 furosemide (LASIX) 20 mg tab let Take 3 tablets by mouth once daily. TAKE AN EXTRA 20 MG in the afternoon if you note greater than 3 lbs weight gain in 24 hours Patient should start on November 13, 2023. 90 tablet 0 11/13/2023 11/25/2023 Discontinued Start: 04-15-2022 End: 10-18-2023 take 2 tablets by mouth once daily furosemide (LASIX) 20 mg tablet Indications: Primary hypertension Take 2 tablets by mouth once daily. 180 tablet 3 04/12/2023 10/18/2023 Discontinued Start: 03-28-2022 take 1 tablet by kalyan th once daily furosemide (LASIX) 20 mg tablet Indications: Primary hypertension Take 1 tablet by mouth once daily. 90 tablet 3 03/28/2022 Active Start: 03-28-2022 take 1 tablet by kalyan th once daily furosemide (LASIX) 20 mg tablet Indications: Primary hypertension Take 1 tablet by mouth once daily. 90 tablet 3 03/28/2022 Active Start: 03-24-2022 End: 03-29-2022 take 1 tablet by mouth once daily furosemide (LASIX) 40 mg tablet Take 1 tablet by mouth once daily for 5 days. 5 tablet 0 03/24/2022 Active Start: 11-08-2018 take 2 tablets by mo uth once daily at dinner furOSEmide 20 MG Tab tablet Take 40 mg by mouth Daily (with dinner). 0 11/08/2018 Active Start: 11-15-2017 End: 03-22-2022 take 1 tablet by mouth once daily furosemide (LASIX) 20 mg tablet Indications: Primary hypertension Take 1 tablet by mouth once daily. 90 tablet 3 12/15/2021 03/22/2022 Discontinued Start: 07-13-2015 End: 07-01-2017 take 20 mg by mouth once daily Furosemide Discontinued 20 MG PO DAILY July 17, 2015 1:42pm July 01, 2017 2:41pm Comment on above: Take 1 tablet by kalyan once daily. Take 1 tablet by kalyan once daily for 5 days. Take 2 tablets by mo [facility] once daily. lisinopril 5 mg oral tablet (20 sources) Angiotensin Converting Enzyme Inhibitor Start: 2 End: 2 take 1 tablet by mouth once daily lisinopril (ZESTRIL, PRINIVIL) 5 mg tablet Take 1 tablet by mouth once daily. 30 tablet 0 03/23/2022 03/30/2022 Discontinued Start: 02-26-2021 End: 02-24-2022 take 1 tablet by mouth once daily lisinopril (ZESTRIL, PRINIVIL) 40 mg tablet Indications: Primary hypertension Take 1 tablet by mouth once daily. 90 tablet 3 12/15/2021 02/24/2022 Discontinued Start: 01-06-2018 End: 01-23-2019 take 1 tablet by mouth once daily at dinner lisinopril (ZESTRIL) 40 MG Tab tablet Take 1 tablet by mouth Daily (with dinner). 30 tablet 11 01/23/2019 Active Start: 12-02-2017 take 20 mg by mouth once daily Lisinopril Active 20 MG PO DAILY December 02, 2017 8:53am Start: 07-13-2015 End: 12-02-2017 take 40 mg by mouth once daily Lisinopril Discontinued 40 MG PO DAILY July 13, 2015 1:00am December 02, 2017 8:57am Comment on above: TAKE 1 TABLET BY KALYAN EVERY DAY Take 1 tablet by kalyan once daily. metOLazone 2.5 mg oral tablet (3 sources) Thiazide-like Diuretic Start: 12-26-2024 metOLazone (ZAROXOLYN) 2.5 mg tablet Take 1 tablet by mouth as needed. 10 tablet 12/26/2024 Active 24 hr metoprolol succinate 50 mg extended release oral tablet (20 sources) beta-Adrenergic Nora Start: 07-07-2024 take 1 tablet by mouth twice daily metoprolol succinate ER (TOPROL XL) 50 mg 24 hr tablet Indications: Primary hypertension Take 1 tablet by mouth two times a day. 180 tablet 3 07/07/2024 Active Start: 03-30-2022 End: 04-12-2023 take 1 tablet by mouth twice daily metoprolol succinate ER (TOPROL XL) 50 mg 24 hr tablet Indications: Primary hypertension Take 1 tablet by mouth two times a day. 180 tablet 3 04/12/2023 Active Start: 02-13-2021 End: 03-30-2022 take 1 tablet by mouth once daily metoprolol succinate ER (TOPROL XL) 25 mg 24 hr tablet Indications: Primary hypertension Take 1 tablet by mouth once daily. 90 tablet 3 12/15/2021 03/22/2022 Discontinued Comment on above: TAKE 1 TABLET BY KALYAN TH EVERY DAY Take 1 tablet by kalyan th once daily. Take 2 tablets by mo uth once daily. Take 1 tablet by kalyan th twice daily. TAKE 1 TABLET BY KALYAN TH TWICE A DAY Take 1 tablet by kalyan th two times a day. Multiple Vitamin (MULTI-VITAMIN) Tab (2 sources) Start: 11-21-19 take 1 tablet by mouth once daily at dinner Multiple Vitamin (MULTI-VITAMIN) Tab Take 1 tablet by mouth Daily (with dinner). 0 11/20/2013 Active mupirocin 0.02 mg/mg topical ointment (4 sources) RNA Synthetase Inhibitor Antibacterial Start: 01-17-20 End: 01-27-20 mupirocin (BACTROBAN) 2 % ointment Indications: Herpes zoster without complication Apply to affected area three times daily for 10 days. 15 g 0 01/16/2022 01/26/2022 Active Comment on above: Apply to affected ar ea three times daily for 10 days. pantoprazole 40 mg delayed release oral tablet (14 sources) Proton Pump Inhibitor Start: 12-13-19 End: 03-12-20 take 1 tablet by mouth twice daily pantoprazole DR (PROTONIX) 40 mg tablet Indications: History of prosthetic aortic valve replacement Take 1 tablet by mouth two times a day. 180 tablet 12/12/2024 03/12/2025 Active Start: 10-11-2024 End: 11-20-2025 take 1 tablet by mouth once daily pantoprazole DR (PROTONIX) 40 mg tablet Indications: History of prosthetic aortic valve replacement Take 1 tablet by mouth once daily. 90 tablet 3 11/20/2024 11/20/2025 Suspended perflutren lipid microsphere s 1.3 mL in NaCl (PF) 0.9% 10 mL injection (DEFINITY) (20 sources) Start: 10-18-2023 End: 10-25-2023 perflutren lipid microsphere s 1.3 mL in NaCl (PF) 0.9% 10 mL injection (DEFINITY) Start: 09-28-2022 End: 12-28-2023 perflutren lipid microsphere s 1.3 mL in NaCl (PF) 0.9% 10 mL injection (DEFINITY) Start: 09-19-2020 End: 12-19-2021 perflutren lipid microsphere s 1.3 mL in NaCl (PF) 0.9% 10 mL injection (DEFINITY) potassium chloride 10 meq extended release oral tablet (20 sources) Start: 07-07-2024 take 1 tablet by mouth once daily potassium chloride (K-TAB) 10 mEq tablet Take 1 tablet by mouth once daily. 30 tablet 3 07/07/2024 Active Start: 11-19-2023 End: 03-14-2024 take 1 tablet by mouth once daily potassium chloride (K-TAB) 10 mEq tablet Take 1 tablet by mouth once daily. 30 tablet 3 03/14/2024 Active potassium,chelated 99 mg oral tablet (2 sources) take 1 tablet by mouth once daily Potassium 99 MG Tab Take by mouth. One tab per day 0 Active psyllium 3400 mg powder for oral suspension (6 sources) Start: End: 5 take 1 dose by mouth twice daily psyllium (METAMUCIL) 3.4 gram packet Take 1 packet by mouth two times a day. 180 packet 12/12/2024 03/12/2025 Active sotalol hydrochloride 80 mg oral tablet (7 sources) Antiarrhythmic Start: 9 take 1.5 tablets by mouth twice daily sotalol 80 MG Tab tablet Take 1.5 tablets by mouth 2 times daily. 45 tablet 3 01/19/2019 Active Start: 12-22-2018 End: 01-19-2019 sotalol 80 MG Tab tablet one tab in the AM and 1/2 tab in the PM 0 12/22/2018 01/19/2019 Discontinued (Dose adjustment (suppress cancel msg)) Start: 11-16-2017 End: 12-02-2017 take 80 mg by mouth once daily Sotalol Discontinued 80 MG PO DAILY November 16, 2017 12:00am December 02, 2017 8:57am Start: 11-16-2017 End: 12-02-2017 take 40 mg by mouth at bedtime Sotalol Discontinued 40 MG PO AT BEDTIME November 16, 2017 12:00am December 02, 2017 8:57am Start: 07-13-2015 End: 11-16-2017 take 40 mg by mouth once daily Sotalol Discontinued 40 MG PO DAILY July 13, 2015 1:00am November 16, 2017 12:41pm Start: 07-13-2015 End: 11-16-2017 take 80 mg by mouth at bedtime Sotalol Discontinued 80 MG PO AT BEDTIME July 13, 2015 1:00am November 16, 2017 12:41pm spironolactone 25 mg oral tablet (20 sources) Aldosterone Antagonist Start: 01-01-2025 take 0.5 tablet by mouth twice daily spironolactone (ALDACTONE) 25 mg tablet Indications: Chronic diastolic (congestive) heart failure (HCC) Take 0.5 tablets by mouth two times a day. Take 30 min prior to lasix 90 tablet 3 01/01/2025 Active Start: 11-06-2024 End: 01-01-2025 spironolactone (ALDACTONE) 2 5 mg tablet Take 12.5 mg by mouth two times a day. 180 tablet 11/06/2024 01/01/2025 Discontinued Start: 11-06-2024 take 1 tablet by kalyan twice daily spironolactone (ALDACTONE) 25 mg tablet Take 1 tablet by mouth two times a day. 180 tablet 11/06/2024 Active Start: 11-25-2023 End: 10-31-2024 take 0.5 tablet by mouth once daily spironolactone (ALDACTONE) 25 mg tablet Indications: Chronic diastolic (congestive) heart failure (HCC) Take 0.5 tablets by mouth once daily. 45 tablet 3 01/17/2024 10/31/2024 Discontinued Start: 10-18-2023 End: 11-25-2023 take 1 tablet by mouth once daily spironolactone (ALDACTONE) 25 mg tablet Indications: Acute systolic CHF (congestive heart failure) (HCC) Take 1 tablet by mouth once daily. HOLD aldactone 30 tablet 5 11/04/2023 11/25/2023 Discontinued Comment on above: Take 1 tablet by kalyan th once daily. ubidecarenone 100 mg oral capsule (1 source) Start: 9 Coenzyme Q10 Active 100 MG PO DAILY March 24, 2019 12:00am valACYclovir 1000 mg oral tablet (4 sources) Herpesvirus Nucleoside Analog DNA Polymerase Inhibitor, Herpes Simplex Virus Nucleoside Analog DNA Polymerase Inhibitor, Herpes Zoster Virus Nucleoside Analog DNA Polymerase Inhibitor Start: 2 End: 2 take 1 tablet by mouth every twelve hours valACYclovir (VALTREX) 1 gram Indications: Herpes zoster without complication Take 1 tablet by mouth every 12 hours for 7 days. 14 tablet 0 01/16/2022 01/23/2022 Active Comment on above: Take 1 tablet by kalyan th every 12 hours for 7 days. Completed/Discontinued Medications Medication Drug Class(es) Dates Sig (Normalized) Sig (Original) [id number] 60 actuat albuterol 0.09 mg/actuat metered dose inhaler (1 source) beta2-Adrenergic Agonist Start: 07-17-2015 End: 07-01-2017 take 1 puff(s) by inhalation every four hours as needed Albuterol Sulfate Discontinued 1 - 2 PUFF INHALATION EVERY 4 HOURS NEEDED 1 July 17, 2015 1:00am July 01, 2017 2:42pm amLODIPine 5 mg oral tablet (20 sources) Dihydropyridine Calcium Channel Nora Start: 02-24-2022 End: 03-22-2022 take 1 tablet by mouth once daily amLODIPine (NORVASC) 5 mg tablet Indications: Primary hypertension Take 1 tablet by mouth once daily. Hold if systolic blood pressure less than 100 0 02/24/2022 03/22/2022 Discontinued Start: 07-29-2021 End: 02-24-2022 take 1 tablet by mouth twice daily amLODIPine (NORVASC) 5 mg tablet Indications: Primary hypertension Take 1 tablet by mouth twice daily. 180 tablet 12/15/2021 02/24/2022 Discontinued Start: 03-24-2019 take 5 mg by mouth twice daily Amlodipine Active 5 MG PO TWICE A DAY March 24, 2019 12:00am take 1 tablet by kalyan th once daily amLODIPine 5 MG Tab tablet amlodipine 5 mg tablet TAKE ONE TABLET BY MOUTH ONCE DAILY 0 Active Comment on above: Take 1 tablet by [facility] twice daily. Take 1 tablet by [facility] once daily. Hold if systolic blood pressure less than 100 betamethasone 0.5 mg/ml / clotrimazole 10 mg/ml topical cream (20 sources) Azole Antifungal, Corticosteroid Start: End: clotrimazole-betameth asone (LOTRISONE) cream Indications: Groin rash Apply 1 application to affected area twice daily. UNTIL CLEAR FOR UP TO 2-3 WEEKS 30 g 1 12/04/2019 02/22/2022 Discontinued Comment on above: Apply 1 application to affected area twice daily. UNTIL CLEAR FOR UP TO 2-3 WEEKS cholecalciferol 2000 unt / soy protein isolate 64 mg oral tablet (20 sources) Vitamin D End: take 1 capsule by mouth once daily Cholecalciferol-Soy Isoflavone 2,000-64 unit-mg tab Take 1 capsule by mouth once daily. 04/15/2022 Discontinued Comment on above: Take 1 capsule by [facility] once daily. 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 No IV access, insert saline lock prior to the beginning of sedation, infusion, injection of imaging exam. Discontinue saline lock post exam. If Pt. has a central line or IVAD, may access for administration according to line specific nursing protocol. Once exam is complete flush line and de-access according to line specific nursing protocol in the MR contrast administration guidelines link. 1 Each 0 07/07/2022 07/08/2022 Comment on above: MRA Brain Inject, in travenously, once for 1 dose. No IV access, insert saline lock prior to the beginning of sedation, infusion, injection of imaging exam. Discontinue saline lock post exam. If Pt. has a central line or IVAD, may access for administration according to line specific nursing protocol. Once exam is complete flush line and de-access according to line specific nursing protocol in the MR contrast administration guidelines link. levoFLOXacin 750 mg oral tablet (1 source) Quinolone Antimicrobial Start: 016 End: 017 take 750 mg by mouth once daily Levofloxacin Discontinued 750 MG PO DAILY July 17, 2015 1:00am July 01, 2017 2:42pm losartan potassium 50 mg oral tablet (20 sources) Angiotensin 2 Receptor Nora Start: 025 End: take 1 tablet by mouth once daily losartan (COZAAR) 50 mg tablet Indications: Primary hypertension Take 1 tablet by mouth once daily. 90 tablet 3 07/07/2024 11/06/2024 Discontinued Start: 06-08-2022 End: 04-12-2023 take 1 tablet by mouth once daily losartan (COZAAR) 50 mg tablet Indications: Primary hypertension Take 1 tablet by mouth once daily. 90 tablet 3 04/12/2023 Active Start: 03-30-2022 End: 04-22-2022 take 1 tablet by mouth once daily losartan (COZAAR) 25 mg tablet Indications: Primary hypertension TAKE 1 TABLET BY MOUTH EVERY DAY 30 tablet 11 04/22/2022 Active Comment on above: Take 1 tablet by kalyan th once daily. TAKE 1 TABLET BY KALYAN TH EVERY DAY magnesium oxide 400 mg oral tablet (20 sources) Start: 03-22-2022 End: 05-14-2022 take 1 tablet by mouth once daily at bedtime magnesium oxide (MAG-OX) 400 mg (241.3 mg magnesium) tablet Take 1 tablet by mouth daily at bedtime. 30 tablet 0 03/22/2022 05/14/2022 Discontinued Start: 02-13-2021 take 200 mg by mouth once jt y Magnesium Oxide Active 200 MG PO DAILY February 13, 2021 12:00am Start: 10-26-2019 End: 03-22-2022 take 1 tablet by mouth twice daily magnesium oxide (MAG-OX) 400 mg (241.3 mg magnesium) tablet Take 1 tablet by mouth twice daily for 10 days. 20 tablet 10/26/2019 03/22/2022 Discontinued Comment on above: Take 1 tablet by kalyan th twice daily for 10 days. Take 1 tablet by kalyan th daily at bedtime. metFORMIN hydrochloride 500 mg oral tablet (1 source) Biguanide Start: 6 End: 7 take 500 mg by mouth once daily Metformin Discontinued 500 MG PO DAILY July 13, 2015 1:00am July 01, 2017 2:40pm mirtazapine 15 mg oral tablet (20 sources) Start: 1 End: 2 take 1 tablet by mouth once daily at bedtime mirtazapine (REMERON) 15 mg tablet Indications: Adjustment insomnia Take 1 tablet by mouth daily at bedtime. 30 tablet 2 05/20/2021 03/03/2022 Discontinued (Course of therapy completed) Comment on above: Take 1 tablet by kalyan th daily at bedtime. omeprazole 40 mg delayed release oral capsule (20 sources) Proton Pump Inhibitor Start: 2 End: 5 take 1 capsule by mouth once daily omeprazole (PRILOSEC) 40 mg capsule Indications: Heme + stool , Epigastric pain , Blood loss anemia Take 1 capsule by mouth once daily. 90 capsule 1 10/18/2023 12/10/2024 Discontinued (Erroneous entry) Comment on above: Take 1 capsule by mo [facility] once daily. predniSONE 20 mg oral tablet (2 sources) Start: 2 End: 2 take 2 tablets by mouth once daily predniSONE (DELTASONE) 20 mg tablet Indications: Ischial bursitis of left side Take 2 tablets by mouth once daily for 5 days. 10 tablet 12/15/2021 12/20/2021 Comment on above: Take 2 tablets by mo uth once daily for 5 days. rivaroxaban 20 mg oral tablet (20 sources) Factor Xa Inhibitor Start: 2 End: 2 take 1 tablet by mouth once daily rivaroxaban (XARELTO) 20 mg tablet Take 1 tablet by mouth once daily. 81 tablet 12/04/2021 01/13/2022 Discontinued Start: 07-08-2021 End: 04-13-2022 take 1 tablet by mouth once daily at dinner rivaroxaban (XARELTO) 15 mg tablet Indications: Paroxysmal atrial fibrillation (HCC) Take 1 tablet by mouth daily with dinner. 90 tablet 3 07/08/2021 01/13/2022 Discontinued Start: 12-23-2018 take 1 tablet by kalyan th once daily at dinner XARELTO 20 MG tablet TAKE 1 TABLET BY MOUTH ONCE DAILY WITH DINNER 1 12/23/2018 Active Start: 07-13-2015 take 15 mg by mouth once daily Rivaroxaban Active 15 MG PO DAILY July 13, 2015 1:00am Comment on above: Take 1 tablet by kalyan th daily with dinner. Take 1 tablet by kalyan th once daily. simvastatin 20 mg oral tablet (20 sources) HMG-CoA Reductase Inhibitor Start: 1 End: 5 take 1 tablet by mouth once daily at bedtime simvastatin (ZOCOR) 20 mg tablet Indications: Hyperlipidemia with target LDL less than 70 Take 1 tablet by mouth daily at bedtime. 90 tablet 3 01/17/2024 10/31/2024 Discontinued Start: 11-08-2018 simvastatin 40 MG Tab Start: 07-13-2015 take 20 mg by mouth at bedtime Simvastatin Active 20 MG PO AT BEDTIME July 13, 2015 1:00am Comment on above: Take 1 tablet by kalyan th daily at bedtime. 125 ml sodium chloride 9 mg/ml prefilled syringe (20 sources) Start: 1 End: 4 sodium chloride 0.9 %, flush, (BD POSIFLUSH) syringe Indications: Paroxysmal atrial fibrillation (HCC) Inject 2-10 mL intravenously as directed. For Echo procedure 10 mL 07/16/2021 02/22/2022 Discontinued Comment on above: Inject 2-10 mL intra venously as directed. For Echo procedure torsemide 20 mg oral tablet (7 sources) Loop Diuretic Start: 5 End: 5 take 2 tablets by mouth twice daily torsemide (DEMADEX) 20 mg tablet Indications: Chronic diastolic (congestive) heart failure (HCC) Take 2 tablets by mouth two times a day. 360 tablet 12/12/2024 12/19/2024 Discontinued (Course of therapy completed) Start: 11-06-2024 End: 11-06-2024 take 1 tablet by mouth twice daily torsemide (DEMADEX) 20 mg tablet Indications: Chronic diastolic (congestive) heart failure (HCC) Take 1 tablet by mouth two times a day. 180 tablet 3 11/06/2024 Suspended traZODone hydrochloride 50 mg oral tablet (20 sources) Serotonin Reuptake Inhibitor Start: 12-15-2021 End: 02-22-2022 take 1 tablet by mouth once daily at bedtime traZODone (DESYREL) 50 mg tablet Indications: Chronic insomnia Take 1 tablet by mouth daily at bedtime. 30 tablet 2 12/15/2021 02/22/2022 Discontinued Comment on above: Take 1 tablet by kalyan th daily at bedtime. UBIDECARENONE (COQ-10 ORAL) (20 sources) End: 12-10-2024 take 1 capsule by mouth once daily UBIDECARENONE (COQ-10 ORAL) Take 1 capsule by mouth once daily. 12/10/2024 Discontinued (Erroneous entry) take 1 capsule by mouth once olesya ly UBIDECARENONE (COQ-10 ORAL) Take 1 capsule by mouth once daily. Active take 1 capsule by mouth once olesya ly UBIDECARENONE (COQ-10 ORAL) Take 1 capsule by mouth once daily. 0 Suspended take 1 capsule by mouth once olesya ly UBIDECARENONE (COQ-10 ORAL) Take 1 capsule by mouth once daily. 0 Active Comment on above: Take 1 capsule by mo prh once daily. zolpidem tartrate 5 mg oral tablet (1 source) gamma-Aminobutyri c Acid-ergic Agonist Start: 07-17-2015 End: 07-01-2017 take 5 mg by mouth at bedtime as needed Zolpidem Discontinued 5 MG PO AT BEDTIME NEEDED July 17, 2015 1:00am July 01, 2017 2:42pm Problems Active Problems Problem Classification Problem Date Documented Da te Episodic/Chronic Acute and unspecified renal failure (20 sources) Acute injury of kidney; 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: [Acute kidney failure, unspecified] Onset: 2 Resolved: 2 02-22-2022 Episodic Acute bronchitis (1 source) Acute bronchitis with bronchospasm; 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: [Acute bronchitis, unspecified] Episodic Acute posthemorrhagic anemia (2 sources) Acute posthemorrhagic anemia; 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: [Acute posthemorrhagic anemia] Episodic Anxiety disorders (1 source) Anxiety; 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: [Anxiety disorder, unspecified] Chronic Aortic; peripheral; and visceral artery aneurysms (20 sources) Ascending aorta dilatation; 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: [Thoracic aortic ectasia] Onset: 9 03-27-2019 Chronic Biliary tract disease (1 source) Biliary sludge; 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: [Other specified diseases of gallbladder] Episodic Cancer of kidney and renal pelvis (20 sources) Clear cell carcinoma of kidney; 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: [Malignant neoplasm of right kidney, except renal pelvis] Onset: 0 Resolved: 2 10-17-2019 Chronic Cardiac and circulatory congenital anomalies (2 sources) Congenital aneurysm of anterior communicating artery; 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: [Pedro aneurysm of anterior communicating artery] Onset: 6 01-18-2019 Chronic Cardiac dysrhythmias (20 sources) Persistent atrial fibrillation; 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: [Paroxysmal atrial fibrillation] Onset: 4 Resolved: 3 01-19-2019 Chronic Chronic kidney disease (20 sources) Chronic kidney disease; 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: [Chronic kidney disease, unspecified] Onset: 2 03-21-2022 Chronic Chronic kidney disease (2 sources) Chronic kidney disease; 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: [Stage 3b chronic kidney disease (HCC)] Onset: 2 Conduction disorders (20 sources) H/O: cardiac pacemaker in situ; 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: [Presence of cardiac pacemaker] Onset: 2 03-20-2022 Chronic Congestive heart failure; nonhypertensive (20 sources) Chronic diastolic heart failure; 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: [Chronic diastolic (congestive) heart failure] Onset: 1 Resolved: 4 12-09-2020 Chronic Deficiency and other anemia (1 source) Chronic anemia; 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: [Anemia in other chronic diseases classified elsewhere] Chronic Deficiency and other anemia (1 source) Anemia due to chronic blood loss; 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: [Iron deficiency anemia secondary to blood loss (chronic)] Chronic Deficiency and other anemia (2 sources) Iron deficiency anemia due to blood loss; 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: [Iron deficiency anemia secondary to blood loss (chronic)] Chronic Deficiency and other anemia (2 sources) Anemia; 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: [Anemia, unspecified] Episodic Diabetes mellitus with complications (20 sources) Chronic kidney disease stage 3 due to type 2 diabetes mellitus; 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: [Type 2 diabetes mellitus with diabetic chronic kidney disease] Onset: 7 01-18-2019 Chronic Disorders of lipid metabolism (20 sources) Hyperlipidemia; 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: [Hyperlipidemia, unspecified] Onset: 4 01-18-2019 Chronic Diverticulosis and diverticulitis (20 sources) Diverticulitis of large intestine; 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: [Diverticulitis of large intestine without perforation or abscess without bleeding] Onset: 9 Resolved: 2 02-15-2020 Chronic Esophageal disorders (20 sources) Gastroesophageal reflux disease; 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: [Gastro-esophageal reflux disease without esophagitis] Onset: 4 01-18-2019 Chronic Essential hypertension (20 sources) Hypertensive disorder; 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: [Essential (primary) hypertension] Onset: 4 10-26-2019 Chronic Fever of unknown origin (1 source) Fever; 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: [Fever, unspecified] Episodic Fracture of lower limb (2 sources) Closed fracture of fifth metatarsal bone; 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: [Nondisplaced fracture of fifth metatarsal bone, right foot, subsequent encounter for fracture with routine healing] 06-07-2023 Episodic Gastroduodenal ulcer (except hemorrhage) (20 sources) Ulcer of duodenum; 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: [Duodenal ulcer, unspecified as acute or chronic, without hemorrhage or perforation] Onset: 1 05-20-2021 Chronic Gastrointestinal hemorrhage (1 source) Duodenal ulcer with hemorrhage; 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: [Chronic or unspecified duodenal ulcer with hemorrhage] Chronic Gastrointestinal hemorrhage (20 sources) Gastrointestinal hemorrhage; 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: [Gastrointestinal hemorrhage, unspecified] Onset: 2 Resolved: 2 Episodic Genitourinary symptoms and ill-defined conditions (1 source) Polyuria; 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: [Diuresis excessive] 11-04-2023 Episodic Heart valve disorders (20 sources) Mitral valve regurgitation; 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: [History of aortic valve replacement] Onset: 4 Resolved: 9 01-19-2019 Chronic Influenza (1 source) Influenza-like illness; 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: [Influenza due to unidentified influenza virus with other respiratory manifestations] 07-05-2023 Episodic Malaise and fatigue (20 sources) Fatigue; 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: [Other fatigue] Onset: 4 01-18-2019 Episodic Miscellaneous mental health disorders (1 source) Chronic insomnia; 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: [Psychophysiologic insomnia] Chronic Neoplasms of unspecified nature or uncertain behavior (2 sources) Neoplasm of uncertain behavior of right kidney; 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: [Neoplasm of uncertain behavior of right kidney] Episodic Nutritional deficiencies (1 source) Vitamin D deficiency; 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: [Vitamin D deficiency, unspecified] 10-18-2023 Chronic Occlusion or stenosis of precerebral arteries (20 sources) Bilateral stenosis of carotid arteries; 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: [Occlusion and stenosis of bilateral carotid arteries] Onset: 7 11-26-2016 Chronic Occlusion or stenosis of precerebral arteries (2 sources) Bilateral carotid artery stenosis; 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: [Bilateral carotid artery stenosis] Onset: 7 01-18-2019 Open wounds of extremities (1 source) Laceration of right middle finger; 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: [Laceration without foreign body of right middle finger without damage to nail, initial encounter] Episodic Osteoarthritis (1 source) Primary gonarthrosis, bilateral; 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: [Bilateral primary osteoarthritis of knee] 11-04-2023 Chronic Other aftercare (2 sources) Post-discharge follow-up; 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: [Encounter for follow-up examination after completed treatment for conditions other than malignant neoplasm] Episodic Other aftercare (1 source) Encounter for follow-up examination after completed treatment for conditions other than malignant neoplasm; 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: [Hospital discharge follow-up] Onset: 5 Episodic Other and ill-defined cerebrovascular disease (20 sources) Aneurysm of anterior communicating artery; 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: [Cerebral aneurysm, nonruptured] 01-06-2017 Chronic Other and ill-defined cerebrovascular disease (1 source) Cerebral arterial aneurysm; 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: [Cerebral aneurysm, nonruptured] Chronic Other and ill-defined cerebrovascular disease (2 sources) Cerebral aneurysm, nonruptured; 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: [Nonruptured cerebral aneurysm] Onset: 3 Chronic Other circulatory disease (8 sources) Device in situ; 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: [Presence of other cardiac implants and grafts] Chronic Other circulatory disease (2 sources) Presence of other cardiac implants and grafts; 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: [Other specified cardiac device in situ] 01-07-2023 Chronic Other connective tissue disease (2 sources) Ischial bursitis ; 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: [Other bursitis of hip, left hip] Episodic Other connective tissue disease (1 source) Pain in bilateral lower legs; 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: [Pain in right lower leg] 01-07-2023 Episodic Other connective tissue disease (1 source) Pain in finger; 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: [Pain in right finger(s)] 04-12-2023 Episodic Other diseases of bladder and urethra (20 sources) Vesicocolic fistula; 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] Onset: 9 08-18-2019 Chronic Other diseases of kidney and ureters (20 sources) Renal mass; 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: [Other specified disorders of kidney and ureter] Onset: 9 07-12-2019 Chronic Other diseases of veins and lymphatics (2 sources) Vascular insufficiency; 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: [Venous insufficiency (chronic) (peripheral)] 10-14-2023 Episodic Other gastrointestinal disorders (20 sources) Malabsorption - iron; 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: [Intestinal malabsorption, unspecified] Onset: 2 Chronic Other gastrointestinal disorders (7 sources) Occult blood in stools; 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: [Other fecal abnormalities] Episodic Other gastrointestinal disorders (1 source) Diarrhea; 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: [Diarrhea, unspecified] Episodic Other lower respiratory disease (1 source) Dyspnea on exertion; 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: [Other forms of dyspnea] 11-15-2024 Episodic Other lower respiratory disease (1 source) Shortness of breath; 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: [Shortness of breath] Onset: 5 Episodic Other lower respiratory disease (1 source) Other forms of dyspnea; 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: [Dyspnea on exertion] Onset: 5 Episodic Other nervous system disorders (1 source) Right-sided piriformis syndrome; 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: [Lesion of sciatic nerve, right lower limb] 11-04-2023 Chronic Other non-traumatic joint disorders (1 source) Hip pain; 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: [Pain in right hip] 11-04-2023 Episodic Other non-traumatic joint disorders (1 source) Bilateral effusion of joints of knees; 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: [Effusion, right knee] 11-04-2023 Episodic Other nutritional; endocrine; and metabolic disorders (20 sources) Hypomagnesemia; 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: [Hypomagnesemia] Onset: 0 10-26-2019 Chronic Other nutritional; endocrine; and metabolic disorders (1 source) Obese class I; 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: [Obesity, unspecified] Chronic Other nutritional; endocrine; and metabolic disorders (1 source) Hypomagnesemia; 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: [Hypomagnesemia] Onset: 2 Chronic Other upper respiratory infections (2 sources) Upper respiratory infection; 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: [Acute upper respiratory infection, unspecified] 12-07-2023 Episodic Otitis media and related conditions (20 sources) Chronic left mastoiditis; 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: [Chronic mastoiditis, left ear] 11-26-2016 Chronic Otitis media and related conditions (20 sources) Mastoiditis; 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: [Right mastoiditis] Onset: 9 01-18-2019 Episodic Violet-; endo-; and myocarditis; cardiomyopathy (except that caused by tuberculosis or sexually transmitted disease) (20 sources) Dilated cardiomyopathy; 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: [Dilated cardiomyopathy] Onset: 0 03-22-2020 Chronic Peripheral and visceral atherosclerosis (20 sources) Peripheral vascular disease; 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: [Ischemic colitis] Onset: 7 01-18-2019 Chronic Peripheral and visceral atherosclerosis (20 sources) Occlusion of superior mesenteric artery; 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: [Acute infarction of intestine, part and extent unspecified] Onset: 3 01-07-2023 Episodic Residual codes; unclassified (1 source) Family history of aneurysm of artery; 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: [Family history of ischemic heart disease and other diseases of the circulatory system] Episodic Residual codes; unclassified (2 sources) Physical deconditioning 10-31-2024 Episodic Unclassified (2 sources) Patient encounter status; 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: [Routine health maintenance] Onset: 4 01-18-2019 Unclassified (3 sources) Drug therapy finding; 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: [shelter current use of antiarrhythmic medical therapy] Onset: 7 01-18-2019 Unclassified (2 sources) Longstanding persistent atrial fibrillation; 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: [Longstanding persistent atrial fibrillation (HCC)] Onset: 4 Viral infection (1 source) Herpes zoster without complication; 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: [Zoster without complications] Episodic Past or Other Problems Problem Classification Problem Date Documented Da te Episodic/Chronic Abdominal pain (20 sources) Abdominal pain; 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: [Unspecified abdominal pain] Onset: 02-26-2014 Resolved: 03-21-2022 01-18-2019 Episodic Administrative/social admission (20 sources) Patient encounter status; 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: [Persons encountering health services in other specified circumstances] Onset: 02-15-2021 Resolved: 09-12-2021 09-12-2021 Episodic Complication of device; implant or graft (20 sources) Prosthetic aortic valve regurgitation; 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: [Other specified complication of cardiac prosthetic devices, implants and grafts, initial encounter] Onset: 10-10-2013 Resolved: 12-22-2018 01-18-2019 Episodic Deficiency and other anemia (20 sources) Anemia due to blood loss; 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: [Iron deficiency anemia secondary to blood loss (chronic)] Onset: 10-24-2019 Resolved: 03-22-2022 Chronic Deficiency and other anemia (20 sources) Iron deficiency anemia; 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: [Iron deficiency anemia, unspecified] Onset: 10-24-2019 10-26-2019 Episodic Deficiency and other anemia (20 sources) Iron 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; 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: [Other iron deficiency anemias] Onset: 04-07-2022 Episodic Diabetes mellitus without complication (20 sources) Type 2 diabetes mellitus without complication; 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: [Type 2 diabetes mellitus without complications] Onset: 11-20-2013 Resolved: 09-12-2021 01-18-2019 Chronic Fluid and electrolyte disorders (4 sources) Hyponatremia; 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: [Hypo-osmolality and hyponatremia] Onset: 02-03-2024 11-22-2023 Episodic Gastritis and duodenitis (20 sources) Acute hemorrhagic gastritis; 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: [Acute gastritis with bleeding] Onset: 02-15-2020 02-15-2020 Episodic Immunizations and screening for infectious disease (20 sources) Blood group antibody titer - finding; 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: [Other specified abnormal immunological findings in serum] Onset: 03-23-2022 03-23-2022 Episodic Nonspecific chest pain (20 sources) Musculoskeletal chest pain; 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: [Other chest pain] Onset: 03-27-2019 Resolved: 09-19-2020 09-19-2020 Episodic Other acquired deformities (20 sources) Lumbar spondylolisthesis; 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: [Spondylolisthesis, lumbar region] Onset: 07-07-2022 Episodic Other aftercare (20 sources) Long-term current use of anticoagulant; 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: [exterminator helper (current) use of anticoagulants] Onset: 11-20-2013 01-18-2019 Episodic Other aftercare (20 sources) 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; 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: [shelter (current) use of antithrombotics/antip latelets] Onset: 03-21-2022 03-21-2022 Episodic Other aftercare (20 sources) Acquired platelet function disorder; 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: [exterminator helper (current) use of antithrombotics/antip latelets] Onset: 03-21-2022 2 Episodic Other aftercare (20 sources) Long-term current use of drug therapy; 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: [Other [facility] (current) drug therapy] Onset: 10-20-2016 Resolved: 09-12-2021 09-12-2021 Episodic Other and ill-defined cerebrovascular disease (20 sources) Intracranial aneurysm; 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: [Cerebral aneurysm, nonruptured] Onset: 08-30-2015 Resolved: 10-05-2022 06-30-2021 Chronic Other and unspecified benign neoplasm (20 sources) Adenomatous polyp of colon ; 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: [Benign neoplasm of descending colon] Onset: 01-06-2017 01-18-2019 Episodic Other and unspecified benign neoplasm (20 sources) History of polyp of colon; 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: [Personal history of colonic polyps] Onset: 01-06-2017 01-18-2019 Episodic Other bone disease and musculoskeletal deformities (20 sources) Osteopenia; 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: [Other specified disorders of bone density and structure, left lower leg] Onset: 11-26-2016 01-18-2019 Episodic Other circulatory disease (20 sources) Disorder of carotid artery; 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: [Disorder of arteries and arterioles, unspecified] Onset: 12-09-2013 Resolved: 09-12-2021 01-18-2019 Chronic Other circulatory disease (20 sources) H/O: heart disorder; 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: [Personal history of other diseases of the circulatory system] Onset: 11-20-2013 01-18-2019 Episodic Other circulatory disease (1 source) Personal history of other diseases of the circulatory system; 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: [H/O rheumatic heart disease] Onset: 11-09-2023 Episodic Other connective tissue disease (1 source) Pain in right leg; 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: [Pain in both lower extremities] Onset: 07-07-2024 Episodic Other connective tissue disease (1 source) Pain in left leg; 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: [Pain in both lower extremities] Onset: 07-07-2024 Episodic Other gastrointestinal disorders (20 sources) History of ischemic colitis; 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: [Personal history of other diseases of the digestive system] Onset: 01-06-2017 09-12-2021 Episodic Other lower respiratory disease (20 sources) Dyspnea; 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: [Shortness of breath] Onset: 11-20-2013 Resolved: 11-12-2023 01-18-2019 Episodic Other lower respiratory disease (20 sources) Solitary nodule of lung; 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: [Solitary pulmonary nodule] Onset: 03-22-2022 03-22-2022 Episodic Other non-epithelial cancer of skin (20 sources) Basal cell carcinoma of skin; 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: [Malignant neoplasm of skin] Onset: 01-08-2014 01-18-2019 Episodic Other non-traumatic joint disorders (20 sources) Shoulder pain; 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: [Pain in left shoulder] Onset: 02-26-2014 01-18-2019 Episodic Other non-traumatic joint disorders (20 sources) Pain in left shoulder; 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: [Pain in joint, shoulder region] Onset: 02-26-2014 02-26-2014 Episodic Pleurisy; pneumothorax; pulmonary collapse (20 sources) Pleural effusion; 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: [Pleural effusion, not elsewhere classified] Onset: 03-27-2019 03-27-2019 Episodic Pulmonary heart disease (20 sources) H/O: pulmonary embolus; 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: [Personal history of pulmonary embolism] Onset: 03-27-2019 05-17-2020 Episodic Unclassified (20 sources) SUMMARY Onset: 12-09-2013 Resolved: 12-22-2018 06-30-2021 Results Test Name Value Interpretation Reference Range Facility [facility] 01-01-2025 CNOV Office Visit (JOHNNY ) -------- BERTA SANCHES ([id number]) 1945 F [facility] Date Time Provider Department 01/01/25 11:00 AM CARLA BURDICK During your visit today, we recorded the following information about you: Pulse Respiration Blood pressure Weight 84/minute 18/minute 156/60 67.4 kg Height 1.575 m Carla Burdick MD 01/01/2025 12:27 PM [facility] SECTION OF REGIONAL CARDIOLOGY Cardiology ([facility]) [address] [facility] [id number] OUTPATIENT VISIT DATE 01/01/2025 PRIMARY CARE PHYSICIAN: Doreen Le [address] [place] [address] HISTORY OF PRESENT ILLNESS: Ms. Sanches is a 79 year old woman with a history of remote aortic valve replacement with homograft in 1996 and possible repair of the ascending aorta, chronic diastolic congestive heart failure, hypertension, dyslipidemia, atrial fibrillation with history of pulmonary vein isolation procedures, pacemaker placement and watchman procedure who presents for follow-up. Patient was admitted to [facility]. She was discharged after 2 days. She [...] 06/01/16 Mitral valve regurgitation Pacemaker 10/21/[address] TRELL VERNON [id number] pulse generator, his bundle lead, right atrial lead Peripheral arterial disease Rheumatic fever Steatosis, liver 03/26/2014 fatty liver on US. 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 Lua PACEMAKER 10/2019 PART. HYSTERECTOMY W/WO RMVL OVARIES/TUBES 1973 h/o cervical cancer ovaries remain PAST SURGICAL HISTORY OF 1996 Aortic valve repair, Dr. Apodaca PAST SURGICAL HISTORY OF 2001 [address] Beltrán, [facility] PAST SURGICAL HISTORY OF 2015 clipping and [...] 01/12/22, treated with 60 mcg epinephrine and 1 (more content not included)... Normal [facility] Connie 12-26-2024 [facility] Telephone ([facility]) -------- BERTA SANCHES ([id number]) 1945 F [place] Date Time Provider Department 12/26/24 ALBIN GU [facility] During your visit today, we recorded the following information about you: Albin Gu APRN.SIGN BOARD ERECTOR 12/26/2024 9:45 AM Signed Patient called to [...] questions answered at this time. Albin Gu APRN.SIGN BOARD ERECTOR Allergies As of Date: 12/26/2024 Noted Allergy [...] 02/26/2014 03/21/2022 Intracranial aneurysm [I67.1] 08/30/2015 10/05/2022 shelter current use of antiarrhythmic medical*10/20/2016 09/12/2021 Prosthetic [...] (HCC) [C64.1] 10/17/2019 Iron deficiency anemia [D50.9] more content not included)... Normal [facility] 12-20-2024 [facility] Office Visit (VASSMD ) -------- BERTA SANCHES ([id number]) 1945 F [place] Date Time Provider Department 12/20/24 8:45 AM LARS SILVA During your visit today, we recorded the following information about you: Pulse Blood pressure Weight 77/minute 154/75 67.4 kg Lars Silva, DO 12/20/2024 5:56 PM Signed Heart , V[facility] [place] DEPARTMENT OF VASCULAR SURGERY OUTPATIENT VISIT DATE December 20, 2024 OUTPATIENT VISIT TYPE ESTABLISHED SERVICE DATE: 12/20/2024 SERVICE TIME: 8:53 AM PRIMARY CARE PHYSICIAN: Deysi Nicholson APRN.SIGN BOARD ERECTOR HISTORY OF PRESENT ILLNESS: Ms. Sanches is a 79 year old female who presents today for a vascular surgery follow-up visit follow up on mesenteric duplex. She recently increased her lasix at the CHF clinic. She had a stent placed in [place] in September. She was recently admitted to [place] for anemia. She has noted increased swelling. [...] 06/01/16 Mitral valve regurgitation Pacemaker 10/21/[address] TRELL VERNON [id number] pulse generator, his bundle lead, right atrial lead Peripheral arterial disease Rheumatic fever Steatosis, liver 03/26/2014 fatty liver on US. 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 Lua PACEMAKER 10/2019 PART. HYSTERECTOMY W/WO RMVL OVARIES/TUBES 1973 h/o cervical cancer ovaries remain PAST SURGICAL HISTORY OF 1996 Aortic valve repair, Dr. Apodaca PAST SURGICAL HISTORY OF 2001 [address] Beltrán, [facility] PAST SURGICAL HISTORY OF 2015 clipping and [...] (BLOOD GLUCOSE TEST) test strip Test blood sugar (more content not included)... Normal [facility] MESENTERIC ARTERY CMPLT V LABon 12-20-2024 US MESENTERIC ARTERY CMPLT VAS LAB Non-Invasive Vascular Laboratory [place] [facility] Office Renal or Mesenteric Duplex [...] artery: Unable to visualize. Technologist: Chantell Ferrari RVT, [facility] Ordering physician: LARS SILVA Interpreting physician: Terrance Oseguera MD, BIJAN Final CC [employer] [facility] Image : [id number] See Link below for Image Normal [facility] CNOVon 12-19-2024 CN Office Visit ([facility] ) -------- BERTA SANCHES ([id number]) 1945 F [facility] Date Time Provider Department 12/19/24 11:00 AM ALBIN GU [facility] During your visit today, we recorded the following information about you: Pulse Blood pressure Weight 79/minute 157/54 65.3 kg Albin Gu APRN.SIGN BOARD ERECTOR 12/19/2024 11:41 AM Addendum 40 mg intravenous [...] or concern, you can call me at [phone]. Albin Gu APRN.CNP 12/19/2024 11:45 AM Signed Heart and Vascular [place] [facility] Failure [facility] OUTPATIENT VISIT DATE December [...] She was found to have MONIQUE on 4/1. Nephrology consulted and started CRRT. This was [...] and was worried about traveling home to [place] in a few days. Discussed with her taking lasix as it was prescribed. As her spironolactone was stopped, did advise patient restart this at 25 mg once a day for four days only. She was instructed to call office in a week to review symptoms. On 10/15, patient presented back to [facility] for gastrointestinal bleed. She had a colonoscopy [...] and entresto. The patient wished to leave [facility] so she could return to [place]. Cardiology and Pulmonary agreed with discharge. Patient [...] bleed. Hospital admission weight 145 lbs Hospital disch (more content not included)... Normal [facility] 12-13-2024 [facility] Telephone (PODCCP) -------- BERTA SANCHES ([id number]) 1945 F [facility] Date Time Provider Department 12/13/24 DEYSI NICHOLSON PODCCP During your visit today, we recorded the following information about you: Alex Gonzalez 12/13/2024 9:36 AM Signed Transitional Care Management (TCM) [facility] Provider Action / FYI: N/A SUMMARY: Outreach type: INITIAL OUTREACH Discharge Network Status: In-Network Discharge Source of Patient: [facility] TCM Discharge Report Patient discharged from [place] on December 12. Admitted for Acute on chronic diastolic CHF (congestive heart failure) ([facility]). Contact made with patient: No - next outreach attempt will be on next . Alex Betancourt December 13, 2024 9:35 AM Allergies [...] 02/26/2014 03/21/2022 Intracranial aneurysm [I67.1] 08/30/2015 10/05/2022 shelter current use of antiarrhythmic medical*10/20/2016 09/12/2021 Prosthetic [...] 10/24/2019 03/22/2022 Renal cell carcinoma (HCC) [C64.9] 04 (more content not included)... Normal [facility] Basic metabolic 2000 panelon 12-12-2024 Anion gap [Moles/Vol] 12 mmol/L Normal 8-15 [facility] Comment on above: Order Comment: Speci men Type: BLOOD SPECIMEN Ordering Facility: [facility] Address: [address] [place] [address] Performed By: #### 1 9123-9, 22460-4 #### [facility] CLIA [id number] [address] [place] [address] [place] Calcium [Mass/Vol] 8.8 mg/dL Normal 8.5-10.2 [facility] Comment on above: Order Comment: Speci men Type: BLOOD SPECIMEN Ordering Facility: [facility] Address: [address] [place] [address] Performed By: #### 1 9123-9, 17423-3 #### [facility] CLIA [id number] [address] [place] [address] [place] Chloride [Moles/Vol] 96 mmol/L Low 98-107 [facility] Comment on above: Order Comment: Speci men Type: BLOOD SPECIMEN Ordering Facility: [facility] Address: [address] [place] [address] Performed By: #### 1 91239, 59085-9 #### [facility] CLIA [id number] [address] STATES OF [facility] CO2 [Moles/Vol] 26 mmol/L Normal 22-30 [facility] Comment on above: Order Comment: Speci men Type: BLOOD SPECIMEN Ordering Facility: [facility] Address: [address] [place] [address] Performed By: #### 1 9123-9, 98721-0 #### [facility] CLIA [id number] [address] [place] Creatinine [Mass/Vol] 1.69 mg/dL High 0.58-0.96 [facility] Comment on above: Order Comment: Speci men Type: BLOOD SPECIMEN Ordering Facility: [facility] Address: [address] [place] [address] Performed By: #### 1 91239, 03101-0 #### [facility] CLIA [id number] [address] Creatinine and Glomerular filtration rate.predicted panel (S/P/Bld) 31 mL/min/1.73m??? Low >=60 [facility] Comment on above: Order Comment: Speci men Type: BLOOD SPECIMEN Ordering Facility: [facility] Address: [address] [place] [address] Result Comment: Mira mated Glomerular Filtration Rate (eGFR) is calculated using the 2020 CKD-EPI creatinine equation. This equation utilizes serum creatinine, sex, and age as parameters. The creatinine assay has traceable calibration to isotope dilution-mass spectrometry. Refer to KDIGO guidelines for clinical interpretation. In patients with unstable renal function, e.g. those with acute kidney injury, the eGFR may not accurately reflect actual GFR. Performed By: #### 1 9123-9, 58778-9 #### [facility] CLIA [id number] [address] [place] [address] [place] Glucose [Mass/Vol] 170 mg/dL High [address] [place] [address] Comment on above: Order Comment: Annie ricci Type: BLOOD SPECIMEN Ordering Facility: [facility] Address: [address] [place] [address] Result Comment: The [place] Diabetes Association (ADA) provides guidance for cutoff [...] Standards of Medical Care in Diabetes 2016, [place] [employer]. Diabetes Care. 2016.39(Suppl 1). Performed By: #### 1 9123-9, 17038-7 #### [facility] CLIA [id number] [address] [place] [address] [place] Potassium [Moles/Vol] 4.1 mmol/L Normal 3.7-5.1 [facility] Comment on above: Order Comment: Annie ricci Type: BLOOD SPECIMEN Ordering Facility: [facility] Address: [address] [id number] Performed By: #### 1 9123-9, 35822-8 #### [facility] CLIA [id number] [address] [place] Sodium [Moles/Vol] 134 mmol/L Low 136-144 [facility] Comment on above: Order Comment: Speci men Type: BLOOD SPECIMEN Ordering Facility: [facility] Address: [address] [place] [address] Performed By: #### 1 9123-9, 40562-6 #### [facility] CLIA [id number] [address] [place] [address] [place] Urea nitrogen [Mass/Vol] 47 mg/dL High 7-21 [facility] Comment on above: Order Comment: Speci men Type: BLOOD SPECIMEN Ordering Facility: [facility] Address: [address] [place] [address] Performed By: #### 1 9123-9, 52871-8 #### [facility] CLIA [id number] [address] [place] CBC panel Auto (Bld)on 12-12 Erythrocyte distribution width (RBC) [Ratio] 15.9 % High 11.5-15.0 [facility] Comment on above: Order Comment: Speci men Type: BLOOD SPECIMEN Ordering Facility: [facility] Address: [address] [place] [address] Performed By: #### 5 8410-2 #### [facility] CLIA [id number] [address] [place] Hematocrit (Bld) [Volume fraction] 25.0 % Low 36.0-46.0 [facility] Comment on above: Order Comment: Speci men Type: BLOOD SPECIMEN Ordering Facility: [facility] Address: [address] [place] [address] Performed By: #### 5 8410-2 #### [facility] CLIA [id number] [address] [place] Hemoglobin (Bld) [Mass/Vol] 8.0 g/dL Low 11.5-15.5 [facility] Comment on above: Order Comment: Speci men Type: BLOOD SPECIMEN Ordering Facility: [facility] Address: [address] [place] [address] Performed By: #### 5 8410-2 #### [facility] CLIA [id number] [address] MCH (RBC) [Entitic mass] 28.6 pg Normal 26.0-34.0 [facility] Comment on above: Order Comment: Speci men Type: BLOOD SPECIMEN Ordering Facility: [facility] Address: [address] [place] [address] Performed By: #### 5 8410-2 #### [facility] CLIA [id number] [address] MCHC (RBC) [Mass/Vol] 32.0 g/dL Normal 30.5-36.0 [facility] Comment on above: Order Comment: Speci men Type: BLOOD SPECIMEN Ordering Facility: [facility] Address: [address] [place] [address] Performed By: #### 5 8410-2 #### [facility] CLIA [id number] [address] MCV (RBC) [Entitic vol] 89.3 fL Normal 80.0-100.0 [facility] Comment on above: Order Comment: Speci men Type: BLOOD SPECIMEN Ordering Facility: [facility] Address: [address] [place] [address] Performed By: #### 5 8410-2 #### [facility] CLIA [id number] [address] Nucleated RBC (Bld) [#/Vol] 10*3/uL Normal <0.01 [facility] Comment on above: Order Comment: Speci men Type: BLOOD SPECIMEN Ordering Facility: [facility] Address: [address] [place] [address] Performed By: #### 5 8410-2 #### [facility] CLIA [id number] [address] Platelet mean volume (Bld) [Entitic vol] 9.9 fL Normal 9.0-12.7 [facility] Comment on above: Order Comment: Speci men Type: BLOOD SPECIMEN Ordering Facility: [facility] Address: [address] [place] [address] Performed By: #### 5 8410-2 #### [facility] CLIA [id number] [address] Platelets (Bld) [#/Vol] 148 10*3/uL Low 150-400 [facility] Comment on above: Order Comment: Annie ricci Type: BLOOD SPECIMEN Ordering Facility: [facility] Address: [address] [place] [address] Performed By: #### 5 8410-2 #### [facility] CLIA [id number] [address] RBC (Bld) [#/Vol] 2.80 10*6/uL Low 3.90-5.20 [facility] Comment on above: Order Comment: Annie ricci Type: BLOOD SPECIMEN Ordering Facility: [facility] Address: [address] [place] [address] Performed By: #### 5 8410-2 #### [facility] CLIA [id number] [address] WBC (Bld) [#/Vol] 9.29 10*3/uL Normal 3.70-11.00 [facility] Comment on above: Order Comment: Annie ricci Type: BLOOD SPECIMEN Ordering Facility: [facility] Address: [address] [place] [address] Performed By: #### 5 8410-2 #### [facility] CLIA [id number] [address] CNDSon 12-12-2024 CNDS HNO ID: [id number] Author: JUAN DIEGO BYRD MD Service: Hospital [...] Hall MD Consulting: Hemant Jimenez MD Consulting: Lars Silva DO MY CONDITION AT DISCHARGE: Stable REASON I WAS IN THE HOSPITAL: Fluid overload that improved with diuretics. You also have anemia related to taking [facility] blood thinners and you got better with iron. 1. Take a higher dose of torsemide and follow up with a ocean freight forwarder and our CHF clinic to guide your [...] Surgery placed. Wednesday-Wednesday after 9 am, call tank farm operator at [phone] [phone] and ask for the appointment line [...] ischemic colitis s/p SMA stenting 09/2024 in [facility], hx of AVR, CKD3. Patient presenting with [...] results. FOLLOW-UP APPOINTMENTS ALREADY SCHEDULED WITH A [facility] PROVIDER: Future Appointments Date Time Provider Department Center 12/21/2024 9:00 AM Albin Gu, VOLUNTEER SERVICES ASSISTANT.[facility] 01/01/2025 11:00 AM Carla Burdick MD [facility] [place] 01/10/2025 1:00 PM Deysi Nicholson, VOLUNTEER SERVICES ASSISTANT.[facility] 02/26/2025 2:20 PM Carla Burdick MD [facility] [place] ALLERGIES Allergen Reactions [...] two times a day. CHANGE how you (more content not included)... Normal [facility] CONSULT PROGon 12-12-2024 CONSULT PROG HNO ID: [id number] Author: BETSY HALL MD Service: Nephrology Author [...] 76 mg/g Urine sodium 67 urine creatinine (more content not included)... Normal [facility] Magnesium [Mass/Vol] 2.0 mg/dL Normal 1.7-2.3 [facility] Comment on above: Order Comment: Annie ricci Type: BLOOD SPECIMEN Ordering Facility: [facility] Address: [address] [place] [address] Performed By: #### 1 9123-9, 41123-9 #### [facility] CLIA [id number] [address] [place] [address] [place] ALBUMIN/CREATININE RATIO, UR INEon 12-11-2024 Albumin DL <= 20 mg/L (U) [Mass/Vol] 23.5 mg/L Normal [facility] Comment on above: Order Comment: Annie ricci Type: BLOOD SPECIMEN Ordering Facility: [facility] Address: [address] [place] [address] Performed By: #### 2 132-9, 2284-8 #### [facility] CLIA [id number] [address] [place] [address] [place] Albumin/Creatinine (U) [Mass ratio] 76 mg/g High <30 [facility] Comment on above: Order Comment: Speci men Type: BLOOD SPECIMEN Ordering Facility: [facility] Address: [address] [place], [place] [address] Result Comment: Adul t Male and Female Nephrotic Criteria: <30 mg/g is considered normal to mildly increased 30-300 mg/g is considered moderately increased >300 mg/g is considered severely increased KDIGO. (2013). KDIGO 2012 Clinical Practice Guideline for the Evaluation and Management of Chronic Kidney Disease. Official Journal of the International Society of Nephrology, 3(1), 1-150. Performed By: #### 2 132-9, 2284-8 #### [facility] CLIA [id number] [address] ALLIED HEALTHon 12-11-2024 ALLIED HEALTH HNO ID: [id number] Author: NUNU CHATMAN RDMS Service: ? Author [...] PATIENT PRESENTS WITH AN IMPLANTABLE OR ATTACHED MEDICAL OFFICE REPRESENTATIVE: N/A RADIOLOGY DEPARTMENT: Ultrasound PERIPHERAL IV DATA: Not applicable SIGNED BY: Nunu Chatman RDMS December 11, 2024 9:14 AM Normal [facility] Basic metabolic 2000 panelon 12-11-2024 Anion gap [Moles/Vol] 13 mmol/L Normal 8-15 [facility] Comment on above: Order Comment: Speci men Type: BLOOD SPECIMEN Ordering Facility: [facility] Address: [address] [place], [place] [address] Performed By: #### 2 276-4, 95103-8, 34758-7, 13369-4 #### [facility] CLIA [id number] [address] [place] [address] [place] Calcium [Mass/Vol] 8.9 mg/dL Normal 8.5-10.2 [facility] Comment on above: Order Comment: Speci men Type: BLOOD SPECIMEN Ordering Facility: [facility] Address: [address] [place] [address] Performed By: #### 2 276-4, 11800-6, 01200-4, 53626-8 #### [facility] CLIA [id number] [address] [place] [address] [place] Chloride [Moles/Vol] 93 mmol/L Low 98-107 [facility] Comment on above: Order Comment: Speci men Type: BLOOD SPECIMEN Ordering Facility: [facility] Address: [address] [place] [address] Performed By: #### 2 276-4, 72839-3, 95266-5, #### [facility] CLIA [id number] [address] [place] [address] [place] CO2 [Moles/Vol] 24 mmol/L Normal 22-30 [facility] Comment on above: Order Comment: Speci men Type: BLOOD SPECIMEN Ordering Facility: [facility] Address: [address] [place] [address] Performed By: #### 2 276-4, 46807-5, 94371-7, 74357-9 #### [facility] CLIA [id number] [address] [place] [address] [place] Creatinine [Mass/Vol] 1.70 mg/dL High 0.58-0.96 [facility] Comment on above: Order Comment: Speci men Type: BLOOD SPECIMEN Ordering Facility: [facility] Address: [address] [place] [address] Performed By: #### 2 276-4, 45850-9, 89618-5, 87088-6 #### [facility] CLIA [id number] [address] [place] [address] [place] Creatinine and Glomerular filtration rate.predicted panel (S/P/Bld) 30 mL/min/1.73m??? Low >=60 [facility] Comment on above: Order Comment: Annie ricci Type: BLOOD SPECIMEN Ordering Facility: [facility] Address: [address] [place] [address] Result Comment: Mira mated Glomerular Filtration Rate (eGFR) is calculated using the 2020 CKD-EPI creatinine equation. This equation utilizes serum creatinine, sex, and age as parameters. The creatinine assay has traceable calibration to isotope dilution-mass spectrometry. Refer to KDIGO guidelines for clinical interpretation. In patients with unstable renal function, e.g. those with acute kidney injury, the eGFR may not accurately reflect actual GFR. Performed By: #### 2 276-4, 84016-4, 98613-4, 30567-4 #### [facility] CLIA [id number] [address] [place] [address] [place] Glucose [Mass/Vol] 144 mg/dL High 74-99 [facility] Comment on above: Order Comment: Annie ricci Type: BLOOD SPECIMEN Ordering Facility: [facility] Address: [address] [place] [address] Result Comment: The [place] Diabetes Association (ADA) provides guidance for cutoff [...] Standards of Medical Care in Diabetes 2016, [place] [employer] Association. Diabetes Care. 2016.39(Suppl 1). Performed By: #### 2 276-4, 55186-4, 41657-1, 98481-5 #### [facility] CLIA [id number] [address] [place] [address] [place] Potassium [Moles/Vol] 3.6 mmol/L Low 3.7-5.1 [facility] Comment on above: Order Comment: Speci men Type: BLOOD SPECIMEN Ordering Facility: [facility] Address: [address] [place] [address] Performed By: #### 2 276-4, 68387-7, 01058-2, 83165-2 #### [facility] CLIA [id number] [address] Sodium [Moles/Vol] 130 mmol/L Low 136-144 [facility] Comment on above: Order Comment: Speci men Type: BLOOD SPECIMEN Ordering Facility: [facility] Address: [address] [place] [address] Performed By: #### 2 276-4, 17196-5, 78989-4, 49651-8 #### [facility] CLIA [id number] [address] [place] Urea nitrogen [Mass/Vol] 54 mg/dL High 7-21 [facility] Comment on above: Order Comment: Speci men Type: BLOOD SPECIMEN Ordering Facility: [facility] Address: [address] [place] [address] Performed By: #### 2 276-4, 31837-2, 37491-3, 29949-0 #### [facility] CLIA [id number] [address] [place] CBC panel Auto (Bld)on 12-11 Erythrocyte distribution width (RBC) [Ratio] 16.1 % High 11.5-15.0 [facility] Comment on above: Order Comment: Speci men Type: BLOOD SPECIMEN Ordering Facility: [facility] Address: [address] [place] [address] Performed By: #### 2 132-9, 8 #### [facility] CLIA [id number] [address] Hematocrit (Bld) [Volume fraction] 23.8 % Low 36.0-46.0 [facility] Comment on above: Order Comment: Speci men Type: BLOOD SPECIMEN Ordering Facility: [facility] Address: [address] [place] [address] Performed By: #### 2 132-9, 2283-8 #### [facility] CLIA [id number] [address] Hemoglobin (Bld) [Mass/Vol] 7.6 g/dL Low 11.5-15.5 [facility] Comment on above: Order Comment: Speci men Type: BLOOD SPECIMEN Ordering Facility: [facility] Address: [address] [place] [address] Performed By: #### 2 132-9, 8 #### [facility] CLIA [id number] [address] MCH (RBC) [Entitic mass] 28.4 pg Normal 26.0-34.0 [facility] Comment on above: Order Comment: Speci men Type: BLOOD SPECIMEN Ordering Facility: [facility] Address: [address] [place] [address] Performed By: #### 2 132-9, 8 #### [facility] CLIA [id number] [address] MCHC (RBC) [Mass/Vol] 31.9 g/dL Normal 30.5-36.0 [facility] Comment on above: Order Comment: Speci men Type: BLOOD SPECIMEN Ordering Facility: [facility] Address: [address] [place] [address] Performed By: #### 2 132-9, 2284-02 #### [facility] CLIA [id number] [address] MCV (RBC) [Entitic vol] 88.8 fL Normal 80.0-100.0 [facility] Comment on above: Order Comment: Speci men Type: BLOOD SPECIMEN Ordering Facility: [facility] Address: [address] [place] [address] Performed By: #### 2 132-9, 8 #### [facility] CLIA [id number] [address] Nucleated RBC (Bld) [#/Vol] 10*3/uL Normal <0.01 [facility] Comment on above: Order Comment: Speci men Type: BLOOD SPECIMEN Ordering Facility: [facility] Address: [address] [place] [address] Performed By: #### 2 132-9, 2283-8 #### [facility] CLIA [id number] [address] [place] Platelet mean volume (Bld) [Entitic vol] 9.8 fL Normal 9.0-12.7 [facility] Comment on above: Order Comment: Speci men Type: BLOOD SPECIMEN Ordering Facility: [facility] Address: [address] [place] [address] Performed By: #### 2 132-9, 2283-8 #### [facility] CLIA [id number] [address] [place] Platelets (Bld) [#/Vol] 160 10*3/uL Normal 150-400 [facility] Comment on above: Order Comment: Speci men Type: BLOOD SPECIMEN Ordering Facility: [facility] Address: [address] [place] [address] Performed By: #### 2 132-9, 8 #### [facility] CLIA [id number] [address] [place] RBC (Bld) [#/Vol] 2.68 10*6/uL Low 3.90-5.20 [facility] Comment on above: Order Comment: Speci men Type: BLOOD SPECIMEN Ordering Facility: [facility] Address: [address] [place] [address] Performed By: #### 2 132-9, 8 #### [facility] CLIA [id number] 1000 [place] [address] [place] WBC (Bld) [#/Vol] 7.37 10*3/uL Normal 3.70-11.00 [facility] Comment on above: Order Comment: Speci men Type: BLOOD SPECIMEN Ordering Facility: [facility] Address: [address] [place] [address] Performed By: #### 2 132-9, 2283-8 #### [facility] CLIA [id number] [address] [place] CNPNon 12-11-2024 CNPN Telephone (4CQ) -------- BERTA SANCHES ([id number]) 1945 F [facility] Date Time Provider Department 12/11/24 DEYSI NICHOLSON 4CQ During your visit today, we recorded the following information about you: Marilyn Cesar 12/11/2024 11:06 AM Signed Patient called to cancel hospital follow up due to re admission yesterday 12/10/2024 Sigifredo Rivera LPN 12/11/2024 11:15 AM Signed Pt re admitted to [facility]. GOPI Hill Christy, APRN.CNP 12/11/2024 1:06 PM Signed Noted. Deysi Nicholson APRN.SIGN BOARD ERECTOR Allergies As of Date: 12/11/2024 Noted Allergy Reaction PROTAMINE 01/12/2022 10 - Anaphylaxis Comments: Had acute drop in blood pressure and end tidal Co2 shortly after administration during watchman procedure on 01/12/22, treated with 60 mcg epinephrine and 10 mg dexamethasone with good response. PROPOFOL 04/07/2023 14 - Other: See Comments Comments: Hypotension Date Reviewed: 12/11/2024 Reviewed by: Lizeth Jordan, DOUG - Fully Assessed Prescriptions as of 12/11/2024 [...] 02/26/2014 03/21/2022 Intracranial aneurysm [I67.1] 08/30/2015 10/05/2022 shelter current use of antiarrhythmic medical*10/20/2016 09/12/2021 Prosthetic [...] [I77.810] 03/27/2019 Chronic bilateral pleural effusions [J90] 09/2 (more content not included)... Normal [facility] CONSULTon 12-11-2024 CONSULT HNO ID: [id number] Author: HEMANT JIMENEZ MD Service: Gastroenterology Author Type: Physician Type: Consults Filed: 12/11/2024 15:46 Note Text: GASTROENTEROLOGY CONSULT NOTE PATIENT NAME: Berta Sanches SERVICE DATE: December 11, 2024 SERVICE TIME: 11:59 AM PRIMARY CARE PHYSICIAN: Deysi Nicholson APRN.SIGN BOARD ERECTOR ATTENDING PHYSICIAN:Juan Diego Byrd MD REASON FOR ADMISSION: CHF REASON FOR CONSULTATION:BUSHRA HPI: This is a 79 year old female with a past medical history significant for cervical cancer, brain aneurysm, s/p coiling, bilateral carotid stenosis, afib s/p watchman 2022, D-CHF, SSS S/P pacemaker placement, Hx AVR, CKD3, HTN, DM, GERD, diverticulitis, 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 The patient [...] 06/01/16 Mitral valve regurgitation Pacemaker 10/21/[address] TRELL VERNON [id number] pulse generator, his bundle lead, right atrial lead Peripheral arterial disease Rheumatic fever Steatosis, liver 03/26/2014 fatty liver on US. 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 Lua PACEMAKER 10/2019 PART. HYSTERECTOMY W/WO RMVL OVARIES/TUBES 1974 h/o cervical cancer ovaries remain PAST SURGICAL HISTORY OF 1996 Aortic valve repair, Dr. Apodaca PAST SURGICAL HISTORY OF 2001 [address] Beltrán, [facility] PAST SURGICAL HISTORY OF 2016 clipping and coil for brain aneurysm MEDICATIONS: Prior to Admission Medications: aspirin 81 mg chewable tablet, Take 1 tablet by mouth once daily., Disp: 90 tablet, Rfl: 3, 12/09/2024 atorvastatin (LIPITOR) 40 mg tablet, Take 1 tablet by mouth once daily., Disp: 90 tablet, Rfl: 3, 12/09/2024 clopidogrel (PLAVIX) 75 mg tablet, Take 1 tablet by mouth once daily., Disp: 90 tablet, Rfl: 3, 12/09/[address] (PROTONIX) 40 mg tablet, Take 1 tablet by mouth once daily., Disp: 90 tablet, Rfl: 3, 12/09/2024 spironolactone (ALDACTONE) 25 mg tablet, Take 1 tablet by mouth two times a day., Disp: 180 tablet, Rfl: , 12/09/2024 t (more content not included)... [facility] CONSULT PROGon 12-11-2024 CONSULT PROG HNO ID: [id number] Author: BETSY HALL MD Service: Nephrology Author [...] p.o. twice daily -- Previous record from [place] reviewed in detail. -- Kidney ultrasound from 10/04/2024 reviewed. Significantly increased velocity in proximal left renal artery suggestive of left renal artery stenosis -- Repeat kidney ultrasound and renal artery duplex Normal [facility] Creat ?Tm Ur-mCncon 12-12-19 25 Creatinine (U) [Mass/Vol] 31.1 mg/dL Normal 20.0-300.0 [facility] Comment on above: Order Comment: Speci men Type: BLOOD SPECIMEN Ordering Facility: [facility] Address[facility] [place] [id number] Performed By: #### 2 132-9, 2284-8 #### [facility] CLIA [id number] [address] [place] [address] [place] Ferritin SerPl-mCncon 2024 Ferritin [Mass/Vol] 36.2 ng/mL Normal 14.7-205.1 [facility] Comment on above: Order Comment: Speci men Type: BLOOD SPECIMEN Ordering Facility: [facility] Address: [address] [place] [address] Performed By: #### 2 276-4, 36996-4, 51560-2, 88931-2 #### [facility] CLIA [id number] [address] [place] [address] [place] Folate SerPl-mCncon 12-12-19 Folate [Mass/Vol] 11.3 ng/mL Normal >4.7 [facility] Comment on above: Order Comment: Speci men Type: BLOOD SPECIMEN Ordering Facility: [facility] Address: [address] [place] [address] Performed By: #### 2 132-9, 2283-8 #### [facility] CLIA [id number] [address] [place] [address] [place] Iron and Iron binding capaci ty panelon 12-11-2024 Iron [Mass/Vol] 17 ug/dL Low 41-186 [facility] Comment on above: Order Comment: Speci men Type: BLOOD SPECIMEN Ordering Facility: [facility] Address: [address] [place] [address] Performed By: #### 2 132-9, 2283-8 #### [facility] CLIA [id number] [address] [place] [address] [place] Iron binding capacity [Mass/Vol] 416 ug/dL High 232-386 [facility] Comment on above: Order Comment: Speci men Type: BLOOD SPECIMEN Ordering Facility: [facility] Address: [address] [place] [address] Performed By: #### 2 132-9, 228-8 #### [facility] CLIA [id number] [address] [place] [address] [place] Iron/TIBC [Molar ratio] 4.1 % Low 15.0-57.0 [facility] Comment on above: Order Comment: Speci men Type: BLOOD SPECIMEN Ordering Facility: [facility] Address: [address] [place] [address] Performed By: #### 2 132-9, 2284-8 #### [facility] CLIA [id number] [address] [place] [id number] [facility] Magnesium SerPl-mCncon 12-11 Magnesium [Mass/Vol] 1.8 mg/dL Normal 1.7-2.3 [facility] Comment on above: Order Comment: Speci men Type: BLOOD SPECIMEN Ordering Facility: [facility] Address: [address] [place] [address] Performed By: #### 2 276-4, 16559-3, 04710-7, 04384-1 #### [facility] CLIA [id number] [address] NURSING PROGon 12-11-2024 NURSING PROG HNO ID: [id number] Author: BRIANNA BETANCOURT RN Service: Nursing Author Type: Registered Nurse Type: Nursing Progress Note Filed: 12/11/2024 15:17 Note Text: PATIENT EDUCATION HEART FAILURE PATIENT NAME: Berta Sanches PATIENT LOCATION: [place] [id number] SURVIVAL SKILLS: Low Sodium Diet Weight Monitoring [...] anemia and CHF. Pt follows w/ Dr Burdick and [facility]F [facility], next appointment is 12/21/24. [...] applicable. REFERRAL (RECOMMENDATION): Cardiology Electronically Signed By: Brianna Betancourt Normal [facility] OCCULT BLD EXAM-DIAGon 12-11 OCCULT BLD EXAM-DIAG Positive Abnormal [facility] Comment on above: Performed By: #### 1 9123-9, 59259-5 #### [facility] CLIA [id number] [address] [place] [address] [place] Prot/Creat Uron 12-11-2024 Protein/Creatinine (U) [Mass ratio] 0.26 mg/mg High <0.15 [facility] Comment on above: Order Comment: Annie ricci Type: BLOOD SPECIMEN Ordering Facility: [facility] Address: [address] [place] [address] Result Comment: Adul t Proteinuria Categories: <0.15 mg/mg is considered normal to mildly increased 0.15 - 0.50 mg/mg is considered moderately increased >0.50 mg/mg is considered severely increased KDIGO. (2013). KDIGO 2012 Clinical Practice Guideline for the Evaluation and Management of Chronic Kidney Disease. Official Journal of the International Society of Nephrology, 3(1), 1-150. Performed By: #### 2 132-9, 2284-8 #### [facility] CLIA [id number] [address] [place] [address] [place] Protein/Creatinine (U) [Mass ratio]on 12-11-2024 Protein (U) [Mass/Vol] 8 mg/dL Normal 0-20 [facility] Comment on above: Order Comment: Annie ricci Type: BLOOD SPECIMEN Ordering Facility: [facility] Address: [address] [place] [address] Performed By: #### 2 132-9, 2284-8 #### [facility] CLIA [id number] [address] [place] [address] [place] Sodium ?Tm Ur-sCncon 025 Sodium Unsp time (U) [Moles/Vol] 67 mmol/L Normal 14-216 [facility] Comment on above: Order Comment: Speci men Type: BLOOD SPECIMEN Ordering Facility: [facility] Address: [address] [place] [address] Performed By: #### 2 132-9, 2284-8 #### [facility] CLIA [id number] [address] [place] [address] [place] UREA NITROGEN, RANDOM URINEo n 12-11-2024 UREA NITROGEN,UR,RAN 400 mg/dL Normal 140-1500 [facility] Comment on above: Order Comment: Speci men Type: BLOOD SPECIMEN Ordering Facility: [facility] Address: [address] [place] [address] Performed By: #### 2 132-9, 2284-8 #### [facility] CLIA [id number] [address] [place] [address] [facility] [place] URINALYSIS, REFLEX MICROSCOP ICon 12-11-2024 Bilirubin Ql (U) Negative Normal Negative [facility] Comment on above: Order Comment: Speci men Type: URINE SPECIMEN Ordering Facility: [facility] Address: [address] [place] [address] Performed By: #### L [id number] #### [facility] CLIA [id number] [address] [place] Clarity (Unsp spec) Clear Normal Clear [facility] Comment on above: Order Comment: Speci men Type: URINE SPECIMEN Ordering Facility: [facility] Address: [address] [place] [address] Performed By: #### L [id number] #### [facility] CLIA [id number] [address] [place] Color (U) Yellow Normal Yellow [facility] Comment on above: Order Comment: Speci men Type: URINE SPECIMEN Ordering Facility: [facility] Address: [address] [place] [address] Performed By: #### L [id number] #### [facility] CLIA [id number] [address] Glucose Test strip (U) [Mass/Vol] Negative Normal Negative [facility] Comment on above: Order Comment: Speci men Type: URINE SPECIMEN Ordering Facility: [facility] Address: [address] [place] [address] Performed By: #### L [id number] #### [facility] CLIA [id number] 1000 [place], [place] [id number] [place] [address] OF [place] Hemoglobin Ql (U) Negative Normal Negative [facility] Comment on above: Order Comment: Speci men Type: URINE SPECIMEN Ordering Facility: [facility] Address: [address] [place] [address] Performed By: #### L [id number] #### [facility] CLIA [id number] [address] [place] Ketones Ql (U) Negative Normal Negative [facility] Comment on above: Order Comment: Speci men Type: URINE SPECIMEN Ordering Facility: [facility] Address: [address] [place] [address] Performed By: #### L [id number] #### [facility] CLIA [id number] [address] Leukocyte esterase Test strip Ql (U) Negative Normal Negative [facility] Comment on above: Order Comment: Speci men Type: URINE SPECIMEN Ordering Facility: [facility] Address: [address] [place] [address] Performed By: #### L [id number] #### [facility] CLIA [id number] [address] [place] Nitrite Ql (U) Negative Normal Negative [facility] Comment on above: Order Comment: Speci men Type: URINE SPECIMEN Ordering Facility: [facility] Address: [address] [place] [address] Performed By: #### L [id number] #### [facility] CLIA [id number] [address] [place] pH (U) 6.5 [pH] Normal 5.0-8.0 [facility] Comment on above: Order Comment: Speci men Type: URINE SPECIMEN Ordering Facility: [facility] Address: [address] [place] [address] Performed By: #### L [id number] #### [facility] CLIA [id number] [address] Protein (U) [Mass/Vol] Negative Normal Negative [facility] Comment on above: Order Comment: Speci men Type: URINE SPECIMEN Ordering Facility: [facility] Address: [address] [place] [address] Performed By: #### L [id number] #### [facility] CLIA [id number] [address] Specific gravity (U) [Rel density] 1.010 Normal 1.005-1.030 [facility] Comment on above: Order Comment: Speci men Type: URINE SPECIMEN Ordering Facility: [facility] Address: [address] [place] [address] Performed By: #### L [id number] #### [facility] CLIA [id number] [address] Urobilinogen Ql (U) 0.2 EU/dL Normal 0.2-1.0 EU/dL [facility] Comment on above: Order Comment: Speci men Type: URINE SPECIMEN Ordering Facility: [facility] Address: [address] [place] [address] Performed By: #### L [id number] #### [facility] CLIA [id number] [address] [place] US RENAL ARTERY/VEINon 12-11 US RENAL ARTERY/VEIN * * *Final Report* * * DATE [...] LEFT: 60-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 Corporation Officer: JAMES Transcribe Date/Time: Dec 11 2024 11:31A Dictated by : ANNETTA ALLEN DO This examination was interpreted and the report reviewed and electronically signed by: ANNETTA ALLEN DO on Dec 11 2024 11:41AM EST [id number] Normal [facility] Cobalamin (Vitamin B12) [Mass/Vol] 1393 pg/mL High 232-1245 [facility] Comment on above: Order Comment: Speci men Type: BLOOD SPECIMEN Ordering Facility: [facility] Address: [address] [place] [address] Performed By: #### 2 132-9, 2284-8 #### [facility] CLIA [id number] [address] [place] [address] [place] ALLIED HEALTHon 12-10-2024 ALLIED HEALTH HNO ID: [id number] Author: SHONDA CUNNINGHAM RT(R) Service: Radiology Author [...] PATIENT PRESENTS WITH AN IMPLANTABLE OR ATTACHED MEDICAL OFFICE REPRESENTATIVE: No RADIOLOGY DEPARTMENT: General X-ray: Exam(s) Completed: Chest X-Ray PERIPHERAL IV DATA: Not applicable SIGNED BY: RT Boyd(R) December 10, 2024 8:10 AM [facility] CBC W Auto Differential pane l (Bld)on 12-10-2024 Basophils (Bld) [#/Vol] 0.09 10*3/uL Normal <0.11 [facility] Comment on above: Order Comment: Specbecac ricci Type: BLOOD SPECIMEN Ordering Facility: [facility] Address: [address] [place] [address] Performed By: #### 5 7021-8 #### [facility] CLIA [id number] [address] [place] [address] [place] Basophils/100 WBC (Bld) 1.1 % Normal [facility] Comment on above: Order Comment: Speci keiry Type: BLOOD SPECIMEN Ordering Facility: [facility] Address: [address] [place] [address] Performed By: #### 5 7021-8 #### [facility] CLIA [id number] [address] [place] [address] [place] Differential cell count method Nom (Bld) Auto Normal [facility] Comment on above: Order Comment: Speci men Type: BLOOD SPECIMEN Ordering Facility: [facility] Address: [address] [place] [address] Performed By: #### 5 7021-8 #### [facility] CLIA [id number] [address] [place] [address] [place] Eosinophils (Bld) [#/Vol] 0.21 10*3/uL Normal <0.46 [facility] Comment on above: Order Comment: Speci men Type: BLOOD SPECIMEN Ordering Facility: [facility] Address: [address] [place] [address] Performed By: #### 5 7021-8 #### [facility] CLIA [id number] [address] [place] Eosinophils/100 WBC (Bld) 2.6 % Normal [facility] Comment on above: Order Comment: Speci men Type: BLOOD SPECIMEN Ordering Facility: [facility] Address: [address] [place] [address] Performed By: #### 5 7021-8 #### [facility] CLIA [id number] [address] [place] Erythrocyte distribution width (RBC) [Ratio] 16.2 % High 11.5-15.0 [facility] Comment on above: Order Comment: Speci men Type: BLOOD SPECIMEN Ordering Facility: [facility] Address: [address] [place] [address] Performed By: #### 5 7021-8 #### [facility] CLIA [id number] [address] [place] Hematocrit (Bld) [Volume fraction] 26.5 % Low 36.0-46.0 [facility] Comment on above: Order Comment: Speci men Type: BLOOD SPECIMEN Ordering Facility: [facility] Address: [address] [place] [address] Performed By: #### 5 7021-8 #### [facility] CLIA [id number] [address] [place] Hemoglobin (Bld) [Mass/Vol] 8.2 g/dL Low 11.5-15.5 [facility] Comment on above: Order Comment: Speci men Type: BLOOD SPECIMEN Ordering Facility: [facility] Address: [address] [place] [address] Performed By: #### 5 7021-8 #### [facility] CLIA [id number] [address] [place] Immature granulocytes (Bld) [#/Vol] 0.03 10*3/uL Normal <0.10 [facility] Comment on above: Order Comment: Speci men Type: BLOOD SPECIMEN Ordering Facility: [facility] Address: [address] [place] [address] Performed By: #### 5 7021-8 #### [facility] CLIA [id number] [address] Immature granulocytes/100 WBC (Bld) 0.4 % Normal [facility] Comment on above: Order Comment: Speci men Type: BLOOD SPECIMEN Ordering Facility: [facility] Address: [address] [place] [address] Performed By: #### 5 7021-8 #### [facility] CLIA [id number] [address] [place] Lymphocytes (Bld) [#/Vol] 2.52 10*3/uL Normal 1.00-4.00 [facility] Comment on above: Order Comment: Speci men Type: BLOOD SPECIMEN Ordering Facility: [facility] Address: [address] [place] [address] Performed By: #### 5 7021-8 #### [facility] CLIA [id number] [address] Lymphocytes/100 WBC (Bld) 30.7 % Normal [facility] Comment on above: Order Comment: Speci men Type: BLOOD SPECIMEN Ordering Facility: [facility] Address: [address] [place] [address] Performed By: #### 5 7021-8 #### [facility] CLIA [id number] [address] [place] MCH (RBC) [Entitic mass] 28.5 pg Normal 26.0-34.0 [facility] Comment on above: Order Comment: Speci men Type: BLOOD SPECIMEN Ordering Facility: [facility] Address: [address] [place] [address] Performed By: #### 5 7021-8 #### [facility] CLIA [id number] [address] [place] MCHC (RBC) [Mass/Vol] 30.9 g/dL Normal 30.5-36.0 [facility] Comment on above: Order Comment: Speci men Type: BLOOD SPECIMEN Ordering Facility: [facility] Address: [address] [place] [address] Performed By: #### 5 7021-8 #### [facility] CLIA [id number] [address] [place] [address] [place] MCV (RBC) [Entitic vol] 92.0 fL Normal 80.0-100.0 [facility] Comment on above: Order Comment: Speci men Type: BLOOD SPECIMEN Ordering Facility: [facility] Address: [address] [place] [address] Performed By: #### 5 7021-8 #### [facility] CLIA [id number] [address] [place] [address] [place] Monocytes (Bld) [#/Vol] 1.19 10*3/uL High <0.87 [facility] Comment on above: Order Comment: Speci men Type: BLOOD SPECIMEN Ordering Facility: [facility] Address: [address] [place] [address] Performed By: #### 5 7021-8 #### [facility] CLIA [id number] [address] Monocytes/100 WBC (Bld) 14.5 % Normal [facility] Comment on above: Order Comment: Speci men Type: BLOOD SPECIMEN Ordering Facility: [facility] Address: [address] [place] [address] Performed By: #### 5 7021-8 #### [facility] CLIA [id number] [address] [place] [address] [place] Neutrophils (Bld) [#/Vol] 4.17 10*3/uL Normal 1.45-7.50 [facility] Comment on above: Order Comment: Speci men Type: BLOOD SPECIMEN Ordering Facility: [facility] Address: [address] [place] [address] Performed By: #### 5 7021-8 #### [facility] CLIA [id number] [address] [place] Neutrophils/100 WBC (Bld) 50.7 % Normal [facility] Comment on above: Order Comment: Speci men Type: BLOOD SPECIMEN Ordering Facility: [facility] Address: [address] [place] [address] Performed By: #### 5 7021-8 #### [facility] CLIA [id number] [address] [place] [address] [place] Nucleated RBC (Bld) [#/Vol] 10*3/uL Normal <0.01 [facility] Comment on above: Order Comment: Speci men Type: BLOOD SPECIMEN Ordering Facility: [facility] Address: [address] [place] [address] Performed By: #### 5 7021-8 #### [facility] CLIA [id number] [address] [place] [address] [place] Nucleated RBC/100 WBC (Bld) [Ratio] 0.0 /100 WBC Normal [facility] Comment on above: Order Comment: Speci men Type: BLOOD SPECIMEN Ordering Facility: [facility] Address: [address] [place] [address] Performed By: #### 5 7021-8 #### [facility] CLIA [id number] [address] [place] [address] [place] Platelet mean volume (Bld) [Entitic vol] 10.5 fL Normal 9.0-12.7 [facility] Comment on above: Order Comment: Speci men Type: BLOOD SPECIMEN Ordering Facility: [facility] Address: [address] [place] [address] Performed By: #### 5 7021-8 #### [facility] CLIA [id number] [address] [place] [address] [place] Platelets (Bld) [#/Vol] 168 10*3/uL Normal 150-400 [facility] Comment on above: Order Comment: Annie ricci Type: BLOOD SPECIMEN Ordering Facility: [facility] Address: [address] [place] [address] Performed By: #### 5 7021-8 #### [facility] CLIA [id number] [address] OF [facility] RBC (Bld) [#/Vol] 2.88 10*6/uL Low 3.90-5.20 [facility] Comment on above: Order Comment: Annie men Type: BLOOD SPECIMEN Ordering Facility: [facility] Address: [address] [place] [address] Performed By: #### 5 7021-8 #### [facility] CLIA [id number] [address] OF [place] WBC (Bld) [#/Vol] 8.21 10*3/uL Normal 3.70-11.00 [facility] Comment on above: Order Comment: Annie ricci Type: BLOOD SPECIMEN Ordering Facility: [facility] Address: [address] [place] [address] Performed By: #### 5 7021-8 #### [facility] CLIA [id number] [address] CONSULTon 12-10-2024 CONSULT HNO ID: [id number] Author: BETSY HALL MD Service: Nephrology Author Type: Physician Type: Consults Filed: 12/10/2024 19:42 Note Text: INPATIENT INITIAL NEPHROLOGY CONSULT SERVICE DATE: 12/10/2024 SERVICE TIME: 7:30 PM REASON FOR CONSULT: MONIQUE/ CRS REQUESTING PHYSICIAN: Dr Tuttle PRIMARY CARE PHYSICIAN: Deysi Nicholson APRN.SIGN BOARD ERECTOR CC: SOB and edema Subjective Ms. Sanches [...] history recent MONIQUE secondary to ATN requiring GUIDE CHANGER with subsequent renal recovery hemodialysis catheter was [...] 06/01/16 Mitral valve regurgitation Pacemaker 10/21/[address] TRELL VERNON [id number] pulse generator, his bundle lead, right atrial lead Peripheral arterial disease Rheumatic fever Steatosis, liver 03/26/2014 fatty liver on US. 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 Lua PACEMAKER 10/2019 PART. HYSTERECTOMY W/WO RMVL OVARIES/TUBES 1974 h/o cervical cancer ovaries remain PAST SURGICAL HISTORY OF 1996 Aortic valve repair, Dr. Apodaca PAST SURGICAL HISTORY OF 2001 [address] Beltrán, [facility] PAST SURGICAL HISTORY OF 2015 clipping and [...] of Wine (5oz) per week Comment: red win (more content not included)... Normal [facility] Comprehensive metabolic 2000 panelon 12-10-2024 Albumin [Mass/Vol] 3.8 g/dL Low 3.9-4.9 [facility] Comment on above: Order Comment: Speci men Type: URINE SPECIMEN Ordering Facility: [facility] Address: [address] [place] [address] Performed By: #### L [id number] #### [facility] CLIA [id number] [address] [place] [address] [place] ALP [Catalytic activity/Vol] 139 U/L High 34-123 [facility] Comment on above: Order Comment: Speci men Type: URINE SPECIMEN Ordering Facility: [facility] Address: [address] [place] [address] Performed By: #### L [id number] #### [facility] CLIA [id number] [address] [place] [address] [place] ALT [Catalytic activity/Vol] 12 U/L Normal 7-38 [facility] Comment on above: Order Comment: Speci men Type: URINE SPECIMEN Ordering Facility: [facility] Address: [address] [place] [address] Performed By: #### L [id number] #### [facility] CLIA [id number] [address] [place] [address] [place] Anion gap [Moles/Vol] 13 mmol/L Normal 8-15 [facility] Comment on above: Order Comment: Speci men Type: URINE SPECIMEN Ordering Facility: [facility] Address: [address] [place] [address] Performed By: #### L [id number] #### [facility] CLIA [id number] [address] [place] [address] [place] AST [Catalytic activity/Vol] 27 U/L Normal 13-35 [facility] Comment on above: Order Comment: Speci men Type: URINE SPECIMEN Ordering Facility: [facility] Address: [address] [place] [address] Performed By: #### L [id number] #### [facility] CLIA [id number] [address] [place] [address] [place] Bilirubin [Mass/Vol] 0.8 mg/dL Normal 0.2-1.3 [facility] Comment on above: Order Comment: Speci men Type: URINE SPECIMEN Ordering Facility: [facility] Address: [address] [place] [address] Performed By: #### L [id number] #### [facility] CLIA [id number] [address] [place] [address] [place] Calcium [Mass/Vol] 9.0 mg/dL Normal 8.5-10.2 [facility] Comment on above: Order Comment: Speci men Type: URINE SPECIMEN Ordering Facility: [facility] Address: [address] [place] [address] Performed By: #### L [id number] #### [facility] CLIA [id number] [address] [place] [address] [place] Chloride [Moles/Vol] 98 mmol/L Normal 98-107 [facility] Comment on above: Order Comment: Speci men Type: URINE SPECIMEN Ordering Facility: [facility] Address: [address] [place] [address] Performed By: #### L [id number] #### [facility] CLIA [id number] [address] [place] [address] [place] CO2 [Moles/Vol] 20 mmol/L Low 22-30 [facility] Comment on above: Order Comment: Speci men Type: URINE SPECIMEN Ordering Facility: [facility] Address: [address] [place] [address] Performed By: #### L [id number] #### [facility] CLIA [id number] [address] STATES OF [facility] Creatinine [Mass/Vol] 1.90 mg/dL High 0.58-0.96 [facility] Comment on above: Order Comment: Speci men Type: URINE SPECIMEN Ordering Facility: [facility] Address: [address] [place] [address] Performed By: #### L [id number] #### [facility] CLIA [id number] [address] Creatinine and Glomerular filtration rate.predicted panel (S/P/Bld) 27 mL/min/1.73m??? Low >=60 [facility] Comment on above: Order Comment: Speci men Type: URINE SPECIMEN Ordering Facility: [facility] Address: [address] [place] [address] Result Comment: Mira mated Glomerular Filtration Rate (eGFR) is calculated using the 2020 CKD-EPI creatinine equation. This equation utilizes serum creatinine, sex, and age as parameters. The creatinine assay has traceable calibration to isotope dilution-mass spectrometry. Refer to KDIGO guidelines for clinical interpretation. In patients with unstable renal function, e.g. those with acute kidney injury, the eGFR may not accurately reflect actual GFR. Performed By: #### L [id number] #### [facility] CLIA [id number] [address] [place] [address] [place] Glucose [Mass/Vol] 140 mg/dL High 74-99 [facility] Comment on above: Order Comment: Speci men Type: URINE SPECIMEN Ordering Facility: [facility] Address: [address] [place] [address] Result Comment: The [place] Diabetes Association (ADA) provides guidance for cutoff [...] Standards of Medical Care in Diabetes 2016, [place] [employer]. Diabetes Care. 2016.39(Suppl 1). Performed By: #### L [id number] #### [facility] CLIA [id number] [address] [place] [address] [place] Potassium [Moles/Vol] 4.2 mmol/L Normal 3.7-5.1 [facility] Comment on above: Order Comment: Spec men Type: URINE SPECIMEN Ordering Facility: [facility] Address: [address] [place] [address] Performed By: #### L [id number] #### [facility] CLIA [id number] [address] [place] [address] [place] Protein [Mass/Vol] 7.3 g/dL Normal 6.3-8.0 [facility] Comment on above: Order Comment: Speci men Type: URINE SPECIMEN Ordering Facility: [facility] Address: [address] [place] [address] Performed By: #### L [id number] #### [facility] CLIA [id number] [address] [place] [address] [place] Sodium [Moles/Vol] 131 mmol/L Low 136-144 [facility] Comment on above: Order Comment: Speci men Type: URINE SPECIMEN Ordering Facility: [facility] Address: [address] [place] [address] Performed By: #### L [id number] #### [facility] CLIA [id number] 1000 [place], [place] [address] [place] [address] [place] Urea nitrogen [Mass/Vol] 63 mg/dL High 7-21 [facility] Comment on above: Order Comment: Speci men Type: URINE SPECIMEN Ordering Facility: [facility] Address: [address] [place] [address] Performed By: #### L [id number] #### [facility] CLIA [id number] [address] OF [place] ECG COMPLETEon 12-10-2024 ECG COMPLETE Ventricular Rate : 7 9 BPM QRS Duration : 118 ms Q-T Interval : 418 ms QTC Calculation(Bazett) : 479 ms Calculated R [place] : -30 degrees Calculated T [place] : 161 degrees ATRIAL FIBRILLATION WITH PREMATURE VENTRICULAR OR ABERRANTLY CONDUCTED COMPLEXES LEFT AXIS DEVIATION LEFT VENTRICULAR HYPERTROPHY WITH QRS WIDENING ( R in aVL , [place] product ) T WAVE ABNORMALITY, CONSIDER LATERAL ISCHEMIA ABNORMAL ECG No Stemi Confirmed by ANSON MANRIQUE DO ([id number]) on 12/10/2024 3:12:25 PM NAME : BERTA SANCHES PID : [id number] : 1945 Gender : Female Race : ORD : [id number] Procedure Date : Dec 10 2024 07:55:48 Edit Date : Dec 10 2024 15:12:31 Diagnosis: ATRIAL FIBRILLATION WITH PREMATURE VENTRICULAR OR ABERRANTLY CONDUCTED COMPLEXES LEFT AXIS DEVIATION LEFT VENTRICULAR HYPERTROPHY WITH QRS WIDENING ( R in aVL , [place] product ) T WAVE ABNORMALITY, CONSIDER LATERAL ISCHEMIA ABNORMAL ECG No Stemi Confirmed by ANSON MANRIQUE DO ([id number]) on 12/10/2024 3:12:25 PM Test Reason : Chest Pain Location : 1 : ER ED Overread By : ANSON MANRIQUE DO Edited By : ANSON MANRIQUE DO Referred By : , Acquired by : [id number], Normal [facility] ED NOTEon 12-10-2024 ED NOTE HNO ID: [id number] Author: RODERICK BRYANT RN Service: ? Author Type: Registered Nurse Type: ED Notes Filed: 12/10/2024 07:36 Note Text: DO Manrique rounds at bedside [facility] ED PROV NOTEon 12-10-2024 ED PROV NOTE HNO ID: [id number] Author: ANSON MANRIQUE DO Service: Emergency Medicine Author Type: [...] 06/01/16 Mitral valve regurgitation Pacemaker 10/21/[address] TRELL VERNON W1DR01 pulse generator, his bundle lead, right atrial lead Peripheral arterial disease Rheumatic fever Steatosis, liver 03/26/2014 fatty liver on US. 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 Lua PACEMAKER 10/2019 PART. HYSTERECTOMY W/WO RMVL OVARIES/TUBES 1973 h/o cervical cancer ovaries remain PAST SURGICAL HISTORY OF 1996 Aortic valve repair, Dr. Apodaca PAST SURGICAL HISTORY OF 2001 [address] Beltrán, [facility] PAST SURGICAL HISTORY OF 2015 clipping and [...] Pulse Temp Temp src Resp SpO2 Weight H (more content not included)... Normal [facility] HIGH SENSITIVITY TROPONIN T (INITIAL)on 12-10-2024 Troponin T.cardiac High sensitivity method [Mass/Vol] 72 ng/L High <[address] [place] [address] Comment on above: Order Comment: Annie ricci Type: URINE SPECIMEN Ordering Facility: [facility] Address: [address] [place] [address] Performed By: #### L [id number] #### [facility] CLIA [id number] [address] HIGH SENSITIVITY TROPONIN T (SECOND)on 12-10-2024 Troponin T.cardiac High sensitivity method [Mass/Vol] 66 ng/L High <[address] [place] [address] Comment on above: Order Comment: Annie ricci Type: BLOOD SPECIMEN Ordering Facility: [facility] Address: [address] [place] [address] Performed By: #### 2 132-9, 2284-8 #### [facility] CLIA [id number] [address] HIGH SENSITIVITY TROPONIN T (THIRD) 3 HRS AFTER INITIALon 12-10-2024 Troponin T.cardiac High sensitivity method [Mass/Vol] 63 ng/L High <[address] [place] [address] Comment on above: Order Comment: Annie ricci Type: BLOOD SPECIMEN Ordering Facility: [facility] Address: [address] [place] [address] Performed By: #### 2 132-9, 2284-8 #### [facility] CLIA [id number] [address] OF [facility] HISTORY PHYSICALon HISTORY PHYSICAL HNO ID: [id number] Author: JUAN DIEGO BYRD MD Service: Hospital Medicine Author Type: Physician Type: H&P Filed: 12/10/2024 13:50 Note Text: HISTORY AND PHYSICAL EXAMINATION PRIMARY CARE PHYSICIAN: Deysi Nicholson APRN.SIGN BOARD ERECTOR HPI: 79 yo woman with hx of [...] 06/01/16 Mitral valve regurgitation Pacemaker 10/21/[address] TRELL VERNON W1DR01 pulse generator, his bundle lead, right atrial lead Peripheral arterial disease Rheumatic fever Steatosis, liver 03/26/2014 fatty liver on US. 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 Lua PACEMAKER 10/2019 PART. HYSTERECTOMY W/WO RMVL OVARIES/TUBES 1974 h/o cervical cancer ovaries remain PAST SURGICAL HISTORY OF 1996 Aortic valve repair, Dr. Apodaca PAST SURGICAL HISTORY OF 2001 [address] Beltrán, [facility] PAST SURGICAL HISTORY OF 2015 clipping and [...] You presented to the hospital with progressive SO (more content not included)... Normal [facility] Magnesium [facility] 12-10 Magnesium [Mass/Vol] 1.9 mg/dL Normal 1.7-2.3 [facility] Comment on above: Order Comment: Speci men Type: URINE SPECIMEN Ordering Facility: [facility] Address: [address] [place] [address] Performed By: #### L [id number] #### [facility] CLIA [id number] [address] OF [facility] NT-proBNP [facility] 12-10 Natriuretic peptide.B prohormone N-Terminal [Mass/Vol] 37775 pg/mL High <450 [facility] Comment on above: Order Comment: Speci men Type: URINE SPECIMEN Ordering Facility: [facility] Address: [address] [place] [address] Performed By: #### L [id number] #### [facility] CLIA [id number] [address] OF [place] XR CHEST 1V FRONTAL PORTon 0 12-10-2024 XR CHEST 1V FRONTAL PORT * * *Final Report* * * DATE [...] the lungs. Cardiomegaly/enlargement of the cardiac silhouette. Corporation Officer: [employer] Transcribe Date/Time: Dec 10 2024 8:28A Dictated by : KIERSTEN MONTENEGRO MD This examination was interpreted and the report reviewed and electronically signed by: KIERSTEN MONTENEGRO MD on Dec 10 2024 8:31AM EST [id number] Normal [facility] Basic metabolic 2000 panelon 12-01-2024 Anion gap [Moles/Vol] 14 mmol/L Normal 8-15 [facility] Comment on above: Order Comment: Speci keiry Type: BLOOD SPECIMEN Ordering Facility: [facility] Address: [address] [place] [address] Performed By: #### 2 4331-1 #### [facility] CLIA [id number] [address] [place] [address] [place] [facility] CLIA [id number] [address] [place] [address] [place] #### 68794-1 #### [facility] CLIA [id number] [address] [place] [address] [place] Calcium [Mass/Vol] 9.5 mg/dL Normal 8.5-10.2 [facility] Comment on above: Order Comment: Speci men Type: BLOOD SPECIMEN Ordering Facility: [facility] Address: [facility] [place] [address] Performed By: #### 2 4331-1 #### [facility] CLIA [id number] [address] [place] [address] [place] [facility] [id number] [address] [place], [place] [address] [place] #### 21952-7 #### [facility] CLIA [id number] [address] [place] [address] [place] Chloride [Moles/Vol] 97 mmol/L Low 98-107 [facility] Comment on above: Order Comment: Speci men Type: BLOOD SPECIMEN Ordering Facility: [facility] Address: [address] [place] [address] Performed By: #### 2 4331-1 #### [facility] CLIA [id number] [address] [place] [address] [place] [facility] [id number] [address] [place] [address] [place] #### 24611-6 #### [facility] CLIA [id number] [address] [place] [address] [place] CO2 [Moles/Vol] 22 mmol/L Normal 22-30 [facility] Comment on above: Order Comment: Speci men Type: BLOOD SPECIMEN Ordering Facility: [facility] Address: [address] [place] [address] Performed By: #### 2 4331-1 #### [facility] CLIA [id number] [address] [place] [address] [place] [facility] [id number] [address] [place] [address] [place] #### 61365-5 #### [facility] CLIA [id number] [address] [place] [address] [place] Creatinine [Mass/Vol] 1.79 mg/dL High 0.58-0.96 [facility] Comment on above: Order Comment: Speci men Type: BLOOD SPECIMEN Ordering Facility: [facility] Address: [address] [place] [address] Performed By: #### 2 4331-1 #### [facility] CLIA [id number] [address] [place] [address] [place] [facility] CLIA [id number] [address] [place] [address] [place] #### 02792-1 #### [facility] CLIA [id number] [address] [place] [address] [place] Creatinine and Glomerular filtration rate.predicted panel (S/P/Bld) 29 mL/min/1.73m??? Low >=60 [facility] Comment on above: Order Comment: Speci men Type: BLOOD SPECIMEN Ordering Facility: [facility] Address: [address] [place] [address] Result Comment: Mira mated Glomerular Filtration Rate (eGFR) is calculated using the 2020 CKD-EPI creatinine equation. This equation utilizes serum creatinine, sex, and age as parameters. The creatinine assay has traceable calibration to isotope dilution-mass spectrometry. Refer to KDIGO guidelines for clinical interpretation. In patients with unstable renal function, e.g. those with acute kidney injury, the eGFR may not accurately reflect actual GFR. Performed By: #### 2 4331-1 #### [facility] CLIA [id number] [address] [place] [address] [place] [facility] [id number] [address] [place] [address] [place] #### 74207-8 #### [facility] CLIA [id number] [address] [place] [address] [place] Glucose [Mass/Vol] 151 mg/dL High 74-99 [facility] Comment on above: Order Comment: Speci men Type: BLOOD SPECIMEN Ordering Facility: [facility] Address: [address] [place] [address] Result Comment: The [place] Diabetes Association (ADA) provides guidance for cutoff [...] Standards of Medical Care in Diabetes 2016, [place] [employer]. Diabetes Care. 2016.39(Suppl 1). Performed By: #### 2 4331-1 #### [facility] CLIA [id number] [address] [place] [address] [place] [facility] [id number] [address] [place] [address] [place] #### 30064-5 #### [facility] CLIA [id number] [address] [place] [address] [place] Potassium [Moles/Vol] 4.2 mmol/L Normal 3.7-5.1 [facility] Comment on above: Order Comment: Annie ricci Type: BLOOD SPECIMEN Ordering Facility: [facility] Address: [address] [place] [address] Performed By: #### 2 4331-1 #### [facility] CLIA [id number] [address] [place] [address] [place] [facility] [id number] [address] [place] [address] [place] #### 20040-5 #### [facility] CLIA [id number] [address] [place] [address] [place] Sodium [Moles/Vol] 133 mmol/L Low 136-144 [facility] Comment on above: Order Comment: Speci men Type: BLOOD SPECIMEN Ordering Facility: [facility] Address: [address] [place] [id number] Performed By: #### 2 4331-1 #### [facility] CLIA [id number] [address] [place] [address] [place] [facility] CLIA [id number] [address] [place] [address] [place] #### 79174-3 #### [facility] CLIA [id number] [address] [place] [address] [place] Urea nitrogen [Mass/Vol] 37 mg/dL High 7-21 [facility] Comment on above: Order Comment: Speci men Type: BLOOD SPECIMEN Ordering Facility: [facility] Address: [address] [place] [address] Performed By: #### 2 4331-1 #### [facility] CLIA [id number] [address] [place] [address] [place] [facility] [id number] [address] [place] [address] [place] #### 35259-4 #### [facility] CLIA [id number] [address] [place] [address] [place] NT-proBNP [facility] 12-01 Natriuretic peptide.B prohormone N-Terminal [Mass/Vol] 71564 pg/mL High <450 [facility] Comment on above: Order Comment: Speci men Type: BLOOD SPECIMEN Ordering Facility: [facility] Address: [facility] [place] [id number] Performed By: #### 3 3762-6 #### [facility] CLIA [id number] [address] [place] [address] [place] Basic metabolic 2000 panelon 11-20-2024 Anion gap [Moles/Vol] 19 mmol/L High 8-15 [facility] Comment on above: Order Comment: Speci men Type: BLOOD SPECIMEN Ordering Facility: [facility] Address: [address] [place], [place] [id number] Performed By: #### 3 3762-6 #### [facility] CLIA [id number] [address] [place], [place] [address] [place] Calcium [Mass/Vol] 9.5 mg/dL Normal 8.5-10.2 [facility] Comment on above: Order Comment: Speci men Type: BLOOD SPECIMEN Ordering Facility: [facility] Address: [address] [place], [place] [address] Performed By: #### 3 3762-6 #### [facility] CLIA [id number] [address] [place], [place] [address] [place] Chloride [Moles/Vol] 98 mmol/L Normal 98-107 [facility] Comment on above: Order Comment: Speci men Type: BLOOD SPECIMEN Ordering Facility: [facility] Address: [address] [place], [place] [address] Performed By: #### 3 3762-6 #### [facility] CLIA [id number] [address] [place] [address] [place] CO2 [Moles/Vol] 18 mmol/L Low 22-30 [facility] Comment on above: Order Comment: Speci men Type: BLOOD SPECIMEN Ordering Facility: [facility] Address: [address] [place], [place] [address] Performed By: #### 3 3762-6 #### [facility] CLIA [id number] [address] [place], [place] [address] [place] Creatinine [Mass/Vol] 1.70 mg/dL High 0.58-0.96 [facility] Comment on above: Order Comment: Speci men Type: BLOOD SPECIMEN Ordering Facility: [facility] Address: [address] [place], [place] [address] Performed By: #### 3 3762-6 #### [facility] CLIA [id number] [address] [place] [address] [place] Creatinine and Glomerular filtration rate.predicted panel (S/P/Bld) 30 mL/min/1.73m??? Low >=60 [facility] Comment on above: Order Comment: Annie ricci Type: BLOOD SPECIMEN Ordering Facility: [facility] Address: [address] [place] [address] Result Comment: Mira mated Glomerular Filtration Rate (eGFR) is calculated using the 2020 CKD-EPI creatinine equation. This equation utilizes serum creatinine, sex, and age as parameters. The creatinine assay has traceable calibration to isotope dilution-mass spectrometry. Refer to KDIGO guidelines for clinical interpretation. In patients with unstable renal function, e.g. those with acute kidney injury, the eGFR may not accurately reflect actual GFR. Performed By: #### 3 3762-6 #### [facility] CLIA [id number] [address] [place] [address] [place] Glucose [Mass/Vol] 150 mg/dL High 74-99 [facility] Comment on above: Order Comment: Annie ricci Type: BLOOD SPECIMEN Ordering Facility: [facility] Address: [address] [place] [address] Result Comment: The [place] Diabetes Association (ADA) provides guidance for cutoff [...] Standards of Medical Care in Diabetes 2016, [place] Diabetes Association. Diabetes Care. 2016.39(Suppl 1). Performed By: #### 3 3762-6 #### [facility] CLIA [id number] [address] [place] [address] [place] Potassium [Moles/Vol] 4.6 mmol/L Normal 3.7-5.1 [facility] Comment on above: Order Comment: Speci men Type: BLOOD SPECIMEN Ordering Facility: [facility] Address: [address] [place] [address] Performed By: #### 3 3762-6 #### [facility] CLIA [id number] [address] [place] [address] [place] Sodium [Moles/Vol] 135 mmol/L Low 136-144 [facility] Comment on above: Order Comment: Speci men Type: BLOOD SPECIMEN Ordering Facility: [facility] Address: [address] [place] [address] Performed By: #### 3 3762-6 #### [facility] CLIA [id number] [address] [place] [address] [place] Urea nitrogen [Mass/Vol] 37 mg/dL High 7-21 [facility] Comment on above: Order Comment: Speci men Type: BLOOD SPECIMEN Ordering Facility: [facility] Address: [address] [place] [address] Performed By: #### 3 3762-6 #### [facility] CLIA [id number] [address] [place] [address] [place] CNOVon 11-20-2024 CNOV Office Visit (JOHNNY ) -------- BERTA SANCHES ([id number]) 1945 [facility] Date Time Provider Department 11/20/24 8:00 AM CARLA BURDICK During your visit today, we recorded the following information about you: Pulse Respiration Blood pressure Weight 84/minute 12/minute 154/62 65.2 kg Height 1.575 m Carla Burdick MD 11/20/2024 8:50 AM Signed [facility] SE[facility]IONAL CARDIOLOGY [facility]) [address] [facility] [address] OUTPATIENT VISIT DATE PRIMARY CARE PHYSICIAN: Doreen Le [address] [place] [address] HISTORY OF PRESENT ILLNESS: Ms. Sanches is [...] 06/01/16 Mitral valve regurgitation Pacemaker 10/21/[address] TRELL VERNON [id number] pulse generator, his bundle lead, right atrial lead Peripheral arterial disease Rheumatic fever Steatosis, liver 03/26/2014 fatty liver on US. 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 Lua PACEMAKER 10/2019 PART. HYSTERECTOMY W/WO RMVL OVARIES/TUBES 1974 h/o cervical cancer ovaries remain PAST SURGICAL HISTORY OF 1996 Aortic valve repair, Dr. Apodaca PAST SURGICAL HISTORY OF 2001 [address] Beltrán, [facility] PAST SURGICAL HISTORY OF 2015 clipping and [...] response. Propofol Other: See Comments Hypotension MEDICATIONS: (more content not included)... Normal [facility] NT-proBNP [facility] 11-20 Natriuretic peptide.B prohormone N-Terminal [Mass/Vol] 53277 pg/mL High <450 [facility] Comment on above: Order Comment: Speci men Type: BLOOD SPECIMEN Ordering Facility: [facility] Address: [address] [place] [address] Performed By: #### 3 3762-6 #### [facility] CLIA [id number] [address] [place] [address] [facility] CNPNon 11-14-2024 CNPN Telephone ([facility]) -------- BERTA SANCHES ([id number]) 1945 [facility] Date Time Provider Department 11/14/24 CARLA BURDICK During your visit today, we recorded the [...] Torsemide to help with the edema? Irma Hwang RN 11/15/2024 8:29 AM Signed Patient called in asking if she can increase her Torsemide? Creatinine 1.82, BUN 41, and BNP 17,541. Patient reporting decrease in her edema and 3 lb weight loss since yesterday. Please advise. DOUG Chavarria Laurie, [place] 11/16/2024 9:27 AM Signed Carla Burdick MD I called and spoke to her. SHe was not taking the spironolactone as directed. I have asked her to increase it to 2 times a day and continue her current dose of torsemide. I asked her to stop in the office on Wednesday when I am there at [place]. 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 Normal [facility] Basic metabolic 2000 panelon 11-13-2024 Anion gap [Moles/Vol] 11 mmol/L Normal 8-15 [facility] Comment on above: Order Comment: Speci men Type: BLOOD SPECIMEN Ordering Facility: [facility] Address: [address] [place] [address] Performed By: #### 2 4331-1 #### [facility] CLIA [id number] [address] [place] [address] [place] [facility] CLIA [id number] [address] [place] [address] [place] #### 99418-1 #### [facility] CLIA [id number] [address] [place] [address] [place] Calcium [Mass/Vol] 9.3 mg/dL Normal 8.5-10.2 [facility] Comment on above: Order Comment: Speci men Type: BLOOD SPECIMEN Ordering Facility: [facility] Address: [address] [place] [address] Performed By: #### 2 4331-1 #### [facility] CLIA [id number] [address] [place] [address] [place] [facility] CLIA [id number] [address] [place] [address] [place] #### 57396-5 #### [facility] CLIA [id number] [address] [place] [address] [place] Chloride [Moles/Vol] 98 mmol/L Normal 98-107 [facility] Comment on above: Order Comment: Speci men Type: BLOOD SPECIMEN Ordering Facility: [facility] Address: [address] [place] [address] Performed By: #### 2 4331-1 #### [facility] CLIA [id number] [address] [place] [address] [place] [facility] CLIA [id number] [address] [place] [address] [place] #### 05313-2 #### [facility] CLIA [id number] [address] [place] [address] [place] CO2 [Moles/Vol] 26 mmol/L Normal 22-30 [facility] Comment on above: Order Comment: Speci men Type: BLOOD SPECIMEN Ordering Facility: [facility] Address: [address] [place] [address] Performed By: #### 2 4331-1 #### [facility] CLIA [id number] [address] [place] [address] [place] [facility] CLIA [id number] [address] [place] [address] [place] #### 73624-9 #### [facility] CLIA [id number] [address] [place] [address] [place] Creatinine [Mass/Vol] 1.82 mg/dL High 0.58-0.96 [facility] Comment on above: Order Comment: Speci men Type: BLOOD SPECIMEN Ordering Facility: [facility] Address: [address] [place] [id number] Performed By: #### 2 4331-1 #### [facility] CLIA [id number] [address] [place] [address] [place] [facility] CLIA [id number] [address] [place] [address] [place] #### 96163-7 #### [facility] CLIA [id number] [address] [place] [address] [place] Creatinine and Glomerular filtration rate.predicted panel (S/P/Bld) 28 mL/min/1.73m??? Low >=60 [facility] Comment on above: Order Comment: Annie ricci Type: BLOOD SPECIMEN Ordering Facility: [facility] Address: [address] [place] [address] Result Comment: Mira mated Glomerular Filtration Rate (eGFR) is calculated using the 2020 CKD-EPI creatinine equation. This equation utilizes serum creatinine, sex, and age as parameters. The creatinine assay has traceable calibration to isotope dilution-mass spectrometry. Refer to KDIGO guidelines for clinical interpretation. In patients with unstable renal function, e.g. those with acute kidney injury, the eGFR may not accurately reflect actual GFR. Performed By: #### 2 4331-1 #### [facility] CLIA [id number] [address] [place] [address] [place] [facility] CLIA [id number] [address] [place] [address] [place] #### 24755-3 #### [facility] CLIA [id number] [address] [place] [address] [place] Glucose [Mass/Vol] 127 mg/dL High 74-99 [facility] Comment on above: Order Comment: Annie ricci Type: BLOOD SPECIMEN Ordering Facility: [facility] Address: [address] [place] [address] Result Comment: The [place] Diabetes Association (ADA) provides guidance for cutoff [...] Standards of Medical Care in Diabetes 2016, [place] Diabetes Association. Diabetes Care. 2016.39(Suppl 1). Performed By: #### 2 4331-1 #### [facility] CLIA [id number] [facility] [place] [address] [place] [facility] CLIA [id number] [address] [place] [address] [place] #### 95388-4 #### [facility] CLIA [id number] [address] [place] [address] [place] Potassium [Moles/Vol] 4.0 mmol/L Normal 3.7-5.1 [facility] Comment on above: Order Comment: Speci men Type: BLOOD SPECIMEN Ordering Facility: [facility] Address: [address] [place] [address] Performed By: #### 2 4331-1 #### [facility] CLIA [id number] [address] [place] [address] [place] [facility] CLIA [id number] [address] [place] [address] [place] #### 26336-3 #### [facility] CLIA [id number] [address] [place] [address] [place] Sodium [Moles/Vol] 135 mmol/L Low 136-144 [facility] Comment on above: Order Comment: Speci men Type: BLOOD SPECIMEN Ordering Facility: [facility] Address: [address] [place] [address] Performed By: #### 2 4331-1 #### [facility] CLIA [id number] [address] [place] [address] [place] [facility] CLIA [id number] [address] [place] [address] [place] #### 45226-5 #### [facility] CLIA [id number] [address] [place] [address] [place] Urea nitrogen [Mass/Vol] 41 mg/dL High 7-21 [facility] Comment on above: Order Comment: Speci men Type: BLOOD SPECIMEN Ordering Facility: [facility] Address: [address] [place] [address] Performed By: #### 2 4331-1 #### [facility] CLIA [id number] [address] [place] [address] [place] [facility] [id number] [address] [place] [address] [place] #### 07881-0 #### [facility] CLIA [id number] [address] [place] [address] [place] NT-proBNP [facility] 11-13 Natriuretic peptide.B prohormone N-Terminal [Mass/Vol] 36010 pg/mL High <450 [facility] Comment on above: Order Comment: Speci men Type: BLOOD SPECIMEN Ordering Facility: [facility] Address: [address] [place] [address] Performed By: #### 2 4331-1 #### [facility] CLIA [id number] [address] [place] [address] [place] [facility] CLIA [id number] [address] [place] [address] [place] #### 66325-5 #### [facility] CLIA [id number] [address] [place] [address] [place] CNOVon 11-06-2024 CNOV Office Visit (CARDWS ) -------- BERTA SANCHES ([id number]) 1945 [place] Date Time Provider Department 11/06/24 2:40 PM CARLA BURDICK During your visit today, we recorded the following information about you: Pulse Respiration Blood pressure Weight 68/minute 12/minute 134/54 68.9 kg Height 1.575 m Carla Burdick MD 11/06/2024 5:01 PM Signed [facility] SECTION OF REGIONAL CARDIOLOGY Cardiology ([facility]) [address] [facility] [address] OUTPATIENT VISIT DATE 11/06/2024 PRIMARY CARE PHYSICIAN: Doreen Le [address] [place] [address] HISTORY OF PRESENT ILLNESS: Ms. Sanches is [...] admitted to the hospital while vacationing in [place]. She underwent SMA stent placement. This was followed by a long admission for decompensated congestive heart failure in the setting of the renal insufficiency. Since returning from [place], she has had difficulties with weight gain [...] 06/01/16 Mitral valve regurgitation Pacemaker 10/21/[address] TRELL VERNON [id number] pulse generator, his bundle lead, right atrial lead Peripheral arterial disease Rheumatic fever Steatosis, liver 03/26/2014 fatty liver on US. 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 Lua PACEMAKER 10/2019 PART. HYSTERECTOMY W/WO RMVL OVARIES/TUBES 1973 h/o cervical cancer ovaries remain PAST SURGICAL HISTORY OF 1996 Aortic valve repair, Dr. Apodaca PAST SURGICAL HISTORY OF 2001 [address] Beltrán, [facility] PAST SURGICAL HISTORY OF 2015 clipping and [...] Diabetes Maternal Grandmother ALLERGIES: ALLERGIES Allergen Reactions (more content not included)... Normal [facility] Basic metabolic 2000 panelon 11-03-2024 Anion gap [Moles/Vol] 11 mmol/L 8 - 15 mmol/L [facility] Calcium [Mass/Vol] 9.1 mg/dL 8.5 - 10. 2 mg/dL [facility] Chloride [Moles/Vol] 84 mmol/L Low 98 - 10 7 mmol/L [facility] CO2 [Moles/Vol] 27 mmol/L 22 - 30 mmol/L [facility] Creatinine [Mass/Vol] 2.36 mg/dL High 0.58 - 0.96 mg/dL [facility] GFR/1.73 sq M.predicted among non-blacks MDRD (S/P/Bld) [Vol rate/Area] 20 mL/min/{1.73_m2} Low - PINF [facility] Comment on above: Estimated Glomerular Filtration Rate (eGFR) is calculated using the 2020 CKD-EPI creatinine equation. This equation utilizes serum creatinine, sex, and age as parameters. The creatinine assay has traceable calibration to isotope dilution-mass spectrometry. Refer to KDIGO guidelines for clinical interpretation. In patients with unstable renal function, e.g. those with acute kidney injury, the eGFR may not accurately reflect actual GFR. Glucose [Mass/Vol] 114 mg/dL High 74 - 99 mg/dL [facility] Comment on above: The [place] Diab[place] Association (ADA) provides guidance for cutoff values [...] Standards of Medical Care in Diabetes 2016, [place] Diabetes Association. Diabetes Care. 2016.39(Suppl 1). Interpretation and review of laboratory results Abnormal [facility] Potassium [Moles/Vol] 4.3 mmol/L 3.7 - 5.1 mmol/L [facility] Sodium [Moles/Vol] 122 mmol/L Low 136 - 144 mmol/L [facility] Urea nitrogen [Mass/Vol] 57 mg/dL High 7 - 21 mg/dL [facility] Anion gap [Moles/Vol] 11 mmol/L Normal 8-15 [facility] Comment on above: Order Comment: Annie ricci Type: BLOOD SPECIMEN Ordering Facility: [facility] Address: [address] [place] [address] Performed By: #### 2 132-9, 2283-8 #### [facility] CLIA [id number] [address] [place] [address] [place] Calcium [Mass/Vol] 9.1 mg/dL Normal 8.5-10.2 [facility] Comment on above: Order Comment: Annie ricci Type: BLOOD SPECIMEN Ordering Facility: [facility] Address: [address] [place] [address] Performed By: #### 2 132-9, 2283-8 #### [facility] CLIA [id number] [address] [place] [address] [place] Chloride [Moles/Vol] 84 mmol/L Low 98-107 [facility] Comment on above: Order Comment: Annie ricci Type: BLOOD SPECIMEN Ordering Facility: [facility] Address: [address] [place] [address] Performed By: #### 2 132-9, 2283-8 #### [facility] CLIA [id number] [address] [place] [address] [place] CO2 [Moles/Vol] 27 mmol/L Normal 22-30 [facility] Comment on above: Order Comment: Annie ricci Type: BLOOD SPECIMEN Ordering Facility: [facility] Address: [address] [place] [address] Performed By: #### 2 132-9, 2284-8 #### [facility] CLIA [id number] [address] [place] [address] [place] Creatinine [Mass/Vol] 2.36 mg/dL High 0.58-0.96 [facility] Comment on above: Order Comment: Annie ricci Type: BLOOD SPECIMEN Ordering Facility: [facility] Address: [address] [place] [address] Performed By: #### 2 132-9, 2284-8 #### [facility] CLIA [id number] [address] [place] [address] [place] Creatinine and Glomerular filtration rate.predicted panel (S/P/Bld) 20 mL/min/1.73m??? Low >=60 [facility] Comment on above: Order Comment: Annie ricci Type: BLOOD SPECIMEN Ordering Facility: [facility] Address: [address] [place] [address] Result Comment: Mira mated Glomerular Filtration Rate (eGFR) is calculated using the 2020 CKD-EPI creatinine equation. This equation utilizes serum creatinine, sex, and age as parameters. The creatinine assay has traceable calibration to isotope dilution-mass spectrometry. Refer to KDIGO guidelines for clinical interpretation. In patients with unstable renal function, e.g. those with acute kidney injury, the eGFR may not accurately reflect actual GFR. Performed By: #### 2 132-9, 2284-8 #### [facility] CLIA [id number] [address] [place] [address] [place] Glucose [Mass/Vol] 114 mg/dL High 74-99 [facility] Comment on above: Order Comment: Annie ricci Type: BLOOD SPECIMEN Ordering Facility: [facility] Address: [address] [place] [address] Result Comment: The [place] Diabetes Association (ADA) provides guidance for cutoff [...] Standards of Medical Care in Diabetes 2016, [place] Diabetes Association. Diabetes Care. 2016.39(Suppl 1). Performed By: #### 2 132-9, 2283-8 #### [facility] CLIA [id number] [address] [place] Potassium [Moles/Vol] 4.3 mmol/L Normal 3.7-5.1 [facility] Comment on above: Order Comment: Annie ricci Type: BLOOD SPECIMEN Ordering Facility: [facility] Address: [address] [place] [address] Performed By: #### 2 132-9, 2283-8 #### [facility] CLIA [id number] [address] [place] Sodium [Moles/Vol] 122 mmol/L Low 136-144 [facility] Comment on above: Order Comment: Annie ricci Type: BLOOD SPECIMEN Ordering Facility: [facility] Address: [address] [place] [address] Performed By: #### 2 132-9, 2283-8 #### [facility] CLIA [id number] [address] [facility] Urea nitrogen [Mass/Vol] 57 mg/dL High 7-21 [facility] Comment on above: Order Comment: Annie ricci Type: BLOOD SPECIMEN Ordering Facility: [facility] Address: [address] [place] [address] Performed By: #### 2 132-9, 2283-8 #### [facility] CLIA [id number] [address] [place] CNOVon 11-03-2024 CNOV Office Visit ([facility] ) -------- BERTA SANCHES ([id number]) 1945 F [place] Date Time Provider Department 11/03/24 9:00 AM ALBIN GU [facility] During your visit today, we recorded the following information about you: Pulse Blood pressure Weight 66/minute 121/44 66.7 kg Albin Gu APRN.CNP 11/03/2024 10:04 AM Addendum Continue current medications [...] or concern, you can call me at [phone]. Albin Gu APRN.CNP 11/03/2024 10:28 AM Signed [facility] [place] [facility] OUTPATIENT VISIT DATE November [...] and was worried about traveling home to [place] in a few days. Discussed with her taking lasix as it was prescribed. As her spironolactone was stopped, did advise patient restart this at 25 mg once a day for four days only. She was instructed to call office in a week to review symptoms. On 10/15, patient presented back to [facility] for gastrointestinal bleed. She had a colonoscopy [...] and entresto. The patient wished to leave [facility] so she could return to [place]. Cardiology and Pulmonary agreed with discharge. Today, the patient reports feeling okay. Since she was hospitalized in [place], she has not felt that well. Feels very tired. Denies shortness of breath. Was seen by her PCP on Wednesday who suggested patient be admitted due to significant worsening in kidney function however, the patient and declined admission as she just returned home the day before. States she was started on bumex drip and then received oral bumex while in [place] and noted a worsening in kidney function. [...] roasted chicken, asparagus and salad. While in [place], she was very conscious about her diet. She weighed every day. She feels after the first hospitalization, she gained approx 20 lbs which she did call and discuss this with this HF VOLUNTEER SERVICES ASSISTANT. Wearing lidocaine patch over site to right side of neck as she mentions havi (more content not included)... Normal [facility] 11-03-2024 [facility] Telephone ([facility]) -------- BERTA SANCHES ([id number]) 1945 [facility] Date Time Provider Department 11/03/24 ALBIN GU [facility] During your visit today, we recorded the following information about you: Albin Gu APRN.SIGN BOARD ERECTOR 11/03/2024 12:49 PM Signed Called patient to [...] agree with plan of care. 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 Normal [facility] CBC W Auto Differential pane l (Bld)on 10-31-2024 Basophils (Bld) [#/Vol] 0.06 10*3/uL [facility] Basophils/100 WBC (Bld) 1 % [facility] Differential cell count method Nom (Bld) Auto [facility] Eosinophils (Bld) [#/Vol] 0.13 10*3/uL [facility] Eosinophils/100 WBC (Bld) 2.1 % [facility] Erythrocyte distribution width (RBC) [Ratio] 16.8 % High 11.5 - 15.0 % [facility] Hematocrit (Bld) [Volume fraction] 26.3 % Low 36.0 - 46.0 % [facility] Hemoglobin (Bld) [Mass/Vol] 8.7 g/dL Low 11.5 - 15.5 g/dL [facility] Immature granulocytes (Bld) [#/Vol] 0.04 10*3/uL [facility] Immature granulocytes/100 WBC (Bld) 0.6 % [facility] Interpretation and review of laboratory results Abnormal [facility] Lymphocytes (Bld) [#/Vol] 1.29 10*3/uL [facility] Lymphocytes/100 WBC (Bld) 20.6 % [facility] MCH (RBC) [Entitic mass] 31.6 pg 26.0 - 34.0 pg [facility] MCHC (RBC) [Mass/Vol] 33.1 g/dL 30.5 - 36.0 g/dL [facility] MCV (RBC) [Entitic vol] 95.6 fL 80.0 - 100.0 fL [facility] Monocytes (Bld) [#/Vol] 0.82 10*3/uL [facility] Monocytes/100 WBC (Bld) 13.1 % [facility] Neutrophils (Bld) [#/Vol] 3.92 10*3/uL [facility] Neutrophils/100 WBC (Bld) 62.6 % [facility] Nucleated RBC (Bld) [#/Vol] NINF [facility] Nucleated RBC/100 WBC (Bld) [Ratio] 0 % /100 WBC [facility] Platelet mean volume (Bld) [Entitic vol] 9.5 fL 9.0 - 12.7 fL [facility] Platelets (Bld) [#/Vol] 202 10*3/uL [facility] RBC (Bld) [#/Vol] 2.75 10*6/uL Low 3.90 - 5.2 0 m/uL [facility] WBC (Bld) [#/Vol] 6.26 10*3/uL [facility] Basophils (Bld) [#/Vol] 0.06 10*3/uL Normal <0.11 [facility] Comment on above: Order Comment: Speci men Type: BLOOD SPECIMEN Ordering Facility: [facility] Address: [address] [place] [address] Performed By: #### 2 4331-1 #### [facility] CLIA [id number] [address] [place] [address] [place] [facility] [id number] [address] [place] [address] [place] #### 90153-3 #### [facility] CLIA [id number] [address] [place] [address] [place] Basophils/100 WBC (Bld) 1.0 % Normal [facility] Comment on above: Order Comment: Speci men Type: BLOOD SPECIMEN Ordering Facility: [facility] Address: [address] [place] [address] Performed By: #### 2 4331-1 #### [facility] CLIA [id number] [address] [place] [address] [place] [facility] [id number] [address] [place] [address] [place] #### 80837-9 #### [facility] CLIA [id number] [address] [place] [address] [place] Differential cell count method Nom (Bld) Auto Normal [facility] Comment on above: Order Comment: Speci men Type: BLOOD SPECIMEN Ordering Facility: [facility] Address: [address] [place] [address] Performed By: #### 2 4331-1 #### [facility] CLIA [id number] [address] [place] [address] [place] [facility] CLIA [id number] [address] [place] [address] [place] #### 43306-4 #### [facility] CLIA [id number] [address] [place] [address] [place] Eosinophils (Bld) [#/Vol] 0.13 10*3/uL Normal <0.46 [facility] Comment on above: Order Comment: Speci men Type: BLOOD SPECIMEN Ordering Facility: [facility] Address: [address] [place] [address] Performed By: #### 2 4331-1 #### [facility] CLIA [id number] [address] [place] [address] [place] [facility] CLIA [id number] [address] [place] [address] [place] #### 70100-0 #### [facility] CLIA [id number] [address] [place] [address] [place] Eosinophils/100 WBC (Bld) 2.1 % Normal [facility] Comment on above: Order Comment: Speci men Type: BLOOD SPECIMEN Ordering Facility: [facility] Address: [address] [place] [address] Performed By: #### 2 4331-1 #### [facility] CLIA [id number] [address] [place] [address] [place] [facility] CLIA [id number] [address] [place] [address] [place] #### 61299-3 #### [facility] CLIA [id number] [address] [place] [address] [place] Erythrocyte distribution width (RBC) [Ratio] 16.8 % High 11.5-15.0 [facility] Comment on above: Order Comment: Speci men Type: BLOOD SPECIMEN Ordering Facility: [facility] Address: [address] [place] [address] Performed By: #### 2 4331-1 #### [facility] CLIA [id number] [address] [place] [address] [place] [facility] [id number] [address] [place] [address] [place] #### 74241-1 #### [facility] CLIA [id number] [address] [place] [address] [place] Hematocrit (Bld) [Volume fraction] 26.3 % Low 36.0-46.0 [facility] Comment on above: Order Comment: Speci men Type: BLOOD SPECIMEN Ordering Facility: [facility] Address: [address] [place], [place] [address] Performed By: #### 2 4331-1 #### [facility] CLIA [id number] [address] [place] [address] [place] [facility] CLIA [id number] [address] [place] [address] [place] #### 15684-4 #### [facility] CLIA [id number] [address] [place] [address] [place] Hemoglobin (Bld) [Mass/Vol] 8.7 g/dL Low 11.5-15.5 [facility] Comment on above: Order Comment: Speci men Type: BLOOD SPECIMEN Ordering Facility: [facility] Address: [address] [place] [id number] Performed By: #### 2 4331-1 #### [facility] CLIA [id number] [address] [place] [id number] [place] [facility] CLIA [id number] [address] [place] [address] [place] #### 29078-5 #### [facility] CLIA [id number] [address] [place] [address] [place] Immature granulocytes (Bld) [#/Vol] 0.04 10*3/uL Normal <0.10 [facility] Comment on above: Order Comment: Speci men Type: BLOOD SPECIMEN Ordering Facility: [facility] Address: [address] [place] [address] Performed By: #### 2 4331-1 #### [facility] CLIA [id number] [address] [place] [address] [place] [facility] CLIA [id number] [address] [place] [address] [place] #### 47523-2 #### [facility] CLIA [id number] [address] [place] [address] [place] Immature granulocytes/100 WBC (Bld) 0.6 % Normal [facility] Comment on above: Order Comment: Speci men Type: BLOOD SPECIMEN Ordering Facility: [facility] Address: [address] [place] [id number] Performed By: #### 2 4331-1 #### [facility] CLIA [id number] [address] [place], [place] [address] [place] [facility] CLIA [id number] [address] [place] [address] [place] #### 69820-1 #### [facility] CLIA [id number] [address] [place] [address] [place] Lymphocytes (Bld) [#/Vol] 1.29 10*3/uL Normal 1.00-4.00 [facility] Comment on above: Order Comment: Speci men Type: BLOOD SPECIMEN Ordering Facility: [facility] Address: [address] [place] [address] Performed By: #### 2 4331-1 #### [facility] CLIA [id number] [address] [place] [address] [place] [facility] [id number] [address] [place] [address] [place] #### 11640-8 #### [facility] CLIA [id number] [address] [place] [address] [place] Lymphocytes/100 WBC (Bld) 20.6 % Normal [facility] Comment on above: Order Comment: Speci men Type: BLOOD SPECIMEN Ordering Facility: [facility] Address: [address] [place] [address] Performed By: #### 2 4331-1 #### [facility] CLIA [id number] [address] [place] [address] [place] [facility] [id number] [address] [place] [address] [place] #### 81356-6 #### [facility] CLIA [id number] [address] [place] [address] [place] MCH (RBC) [Entitic mass] 31.6 pg Normal 26.0-34.0 [facility] Comment on above: Order Comment: Speci men Type: BLOOD SPECIMEN Ordering Facility: [facility] Address: [address] [place] [address] Performed By: #### 2 4331-1 #### [facility] CLIA [id number] [address] [place] [address] [place] [facility] CLIA [id number] [address] [place] [address] [place] #### 08364-8 #### [facility] CLIA [id number] [address] [place] [address] [place] MCHC (RBC) [Mass/Vol] 33.1 g/dL Normal 30.5-36.0 [facility] Comment on above: Order Comment: Speci men Type: BLOOD SPECIMEN Ordering Facility: [facility] Address: [address] [place] [address] Performed By: #### 2 4331-1 #### [facility] CLIA [id number] [address] [place] [address] [place] [facility] CLIA [id number] [address] [place] [address] [place] #### 01356-0 #### [facility] CLIA [id number] [address] [place] [address] [place] MCV (RBC) [Entitic vol] 95.6 fL Normal 80.0-100.0 [facility] Comment on above: Order Comment: Speci men Type: BLOOD SPECIMEN Ordering Facility: [facility] Address: [address] [place] [address] Performed By: #### 2 4331-1 #### [facility] CLIA [id number] [address] [place] [address] [place] [facility] CLIA [id number] [address] [place] [address] [place] #### 98048-6 #### [facility] CLIA [id number] [address] [place] [id number] [place] Monocytes (Bld) [#/Vol] 0.82 10*3/uL Normal <0.87 [facility] Comment on above: Order Comment: Speci men Type: BLOOD SPECIMEN Ordering Facility: [facility] Address: [address] [place], [place] [address] Performed By: #### 2 4331-1 #### [facility] CLIA [id number] [address] [place] [address] [place] [facility] CLIA [id number] [address] [place] [address] [place] #### 17592-0 #### [facility] CLIA [id number] [address] [place] [address] [place] Monocytes/100 WBC (Bld) 13.1 % Normal [facility] Comment on above: Order Comment: Speci men Type: BLOOD SPECIMEN Ordering Facility: [facility] Address: [address] [place] [address] Performed By: #### 2 4331-1 #### [facility] CLIA [id number] [address] [place] [address] [place] [facility] CLIA [id number] [address] [place] [address] [place] #### 95741-7 #### [facility] CLIA [id number] [address] [place] [address] [place] Neutrophils (Bld) [#/Vol] 3.92 10*3/uL Normal 1.45-7.50 [facility] Comment on above: Order Comment: Speci men Type: BLOOD SPECIMEN Ordering Facility: [facility] Address: [address] [place], [place] [address] Performed By: #### 2 4331-1 #### [facility] CLIA [id number] [address] [address] [place] [facility] CLIA [id number] [address] [place] [address] [place] #### 96552-0 #### [facility] CLIA [id number] [address] [place] [address] [place] Neutrophils/100 WBC (Bld) 62.6 % Normal [facility] Comment on above: Order Comment: Speci men Type: BLOOD SPECIMEN Ordering Facility: [facility] Address: [address] [place], [place] [address] Performed By: #### 2 4331-1 #### [facility] CLIA [id number] [address] [place] [address] [place] [facility] [id number] [address] [place] [address] [place] #### 70638-5 #### [facility] CLIA [id number] [address] [place], [place] [address] [place] Nucleated RBC (Bld) [#/Vol] 10*3/uL Normal <0.01 [facility] Comment on above: Order Comment: Speci men Type: BLOOD SPECIMEN Ordering Facility: [facility] Address: [address] [place], [place] [address] Performed By: #### 2 4331-1 #### [facility] CLIA [id number] [address] [place], [place] [address] [place] [facility] CLIA [id number] [address] [place] [address] [place] #### 91915-5 #### [facility] CLIA [id number] [address] [place], [place] [address] [place] Nucleated RBC/100 WBC (Bld) [Ratio] 0.0 /100 WBC Normal [facility] Comment on above: Order Comment: Speci men Type: BLOOD SPECIMEN Ordering Facility: [facility] Address: [address] [place] [address] Performed By: #### 2 4331-1 #### [facility] CLIA [id number] [address] [place] [address] [place] [facility] CLIA [id number] [address] [place] [address] [place] #### 46800-6 #### [facility] CLIA [id number] [address] [place] [address] [place] Platelet mean volume (Bld) [Entitic vol] 9.5 fL Normal 9.0-12.7 [facility] Comment on above: Order Comment: Speci men Type: BLOOD SPECIMEN Ordering Facility: [facility] Address: [address] [place] [address] Performed By: #### 2 4331-1 #### [facility] CLIA [id number] [address] [place] [address] [place] [facility] CLIA [id number] [address] [place] [address] [place] #### 02406-4 #### [facility] CLIA [id number] [address] [place] [address] [place] Platelets (Bld) [#/Vol] 202 10*3/uL Normal 150-400 [facility] Comment on above: Order Comment: Speci men Type: BLOOD SPECIMEN Ordering Facility: [facility] Address: [address] [place] [id number] Performed By: #### 2 4331-1 #### [facility] CLIA [id number] [address] [place] [address] [place] [facility] CLIA [id number] [address] [place] [address] [place] #### 16797-1 #### [facility] CLIA [id number] [address] [place] [address] [place] RBC (Bld) [#/Vol] 2.75 10*6/uL Low 3.90-5.20 [facility] Comment on above: Order Comment: Speci men Type: BLOOD SPECIMEN Ordering Facility: [facility] Address: [address] [place] [address] Performed By: #### 2 4331-1 #### [facility] CLIA [id number] [address] [place] [address] [place] [facility] CLIA [id number] [address] [place] [address] [place] #### 76856-5 #### [facility] CLIA [id number] [address] [place] [address] [place] WBC (Bld) [#/Vol] 6.26 10*3/uL Normal 3.70-11.00 [facility] Comment on above: Order Comment: Speci men Type: BLOOD SPECIMEN Ordering Facility: [facility] Address: [address] [place] [address] Performed By: #### 2 4331-1 #### [facility] CLIA [id number] [address] [place] [address] [place] [facility] CLIA [id number] [address] [place] [address] [place] #### 67273-6 #### [facility] CLIA [id number] [address] [place] [address] [place] CNOVon 10-31-2024 CNOV Office Visit (FAMPWS ) -------- BERTA SANCHES ([id number]) 1945 F [place] Date Time Provider Department 10/31/24 11:00 AM SHAYE DOMINGO During your visit today, we recorded the following information about you: Pulse Blood pressure Weight 84/minute 147/68 64.4 kg Shaye Domingo, VOLUNTEER SERVICES ASSISTANT.SIGN BOARD ERECTOR 10/31/2024 12:52 PM Signed Chief Complaint Patient presents with: Hospital F/U [facility] Berta Sanches is a 79 year old female who presents here today for Above Complaints.. Acute Mesenteric Ischemia: - Initially admitted to [facility] on 10/02/2024. - Underwent femoral ultrasound-guided angiogram with angioplasty and stenting of the SMA. - Required CRRT for MONIQUE post-op. - Developed AFib with RVR post-op. - Discharged after 23-day hospitalization. Acute on Chronic Heart Failure: - Given IV Lasix during initial admission. - Readmitted to [facility] on 10/15/2024 for acute on chronic decompensated [...] 06/01/16 Mitral valve regurgitation Pacemaker 10/21/[address] TRELL VERNON [id number] pulse generator, his bundle lead, right atrial lead Peripheral arterial disease (HCC) Rheumatic fever Steatosis, liver 03/26/2014 fatty liver on US. 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 Lua PACEMAKER 10/2019 PART. HYSTERECTOMY W/WO RMVL OVARIES/TUBES 1973 h/o cervical cancer ovaries remain PAST SURGICAL HISTORY OF 1996 Aortic valve repair, Dr. Apodaca PAST SURGICAL HISTORY OF 2001 [address] Beltrán, [facility] PAST SURGICAL HISTORY OF 2016 clipping and coil for brain aneurysm Family [...] procedure on 01/12/22, treated with 60 mcg epi (more content not included)... Normal [facility] Comprehensive metabolic 2000 panelOrdered By: Shala Segura on 10-31-2024 Albumin [Mass/Vol] 4 g/dL 3.9 - 4.9 g/dL [facility] ALP [Catalytic activity/Vol] 81 U/L 34 - 123 U/L [facility] ALT [Catalytic activity/Vol] 10 U/L 7 - 38 U/L [facility] Anion gap [Moles/Vol] 11 mmol/L 8 - 15 mmol/L [facility] AST [Catalytic activity/Vol] 19 U/L 13 - 35 U/L [facility] Bilirubin [Mass/Vol] 1 mg/dL 0.2 - 1 .3 mg/dL [facility] Calcium [Mass/Vol] 9.3 mg/dL 8.5 - 10. 2 mg/dL [facility] Chloride [Moles/Vol] 83 mmol/L Low 98 - 10 7 mmol/L [facility] CO2 [Moles/Vol] 29 mmol/L 22 - 30 mmol/L [facility] Creatinine [Mass/Vol] 2.5 mg/dL High 0.58 - 0.96 mg/dL [facility] GFR/1.73 sq M.predicted among non-blacks MDRD (S/P/Bld) [Vol rate/Area] 19 mL/min/{1.73_m2} Low - PINF [facility] Comment on above: Estimated Glomerular Filtration Rate (eGFR) is calculated using the 202 CKD-EPI creatinine equation. This equation utilizes serum creatinine, sex, and age as parameters. The creatinine assay has traceable calibration to isotope dilution-mass spectrometry. Refer to KDIGO guidelines for clinical interpretation. In patients with unstable renal function, e.g. those with acute kidney injury, the eGFR may not accurately reflect actual GFR. Glucose [Mass/Vol] 138 mg/dL High 74 - 99 mg/dL [facility] Comment on above: The [place] Diab[employer] [place] Association (ADA) provides guidance for cutoff values [...] Standards of Medical Care in Diabetes 2016, [place] [employer]. Diabetes Care. 2016.39(Suppl 1). Interpretation and review of laboratory results Abnormal [facility] Potassium [Moles/Vol] 3.8 mmol/L 3.7 - 5.1 mmol/L [facility] Protein [Mass/Vol] 7 g/dL 6.3 - 8.0 g/dL [facility] Sodium [Moles/Vol] 123 mmol/L Low 136 - 144 mmol/L [facility] Urea nitrogen [Mass/Vol] 53 mg/dL High 7 - 21 mg/dL [facility] Comprehensive metabolic 2000 panelon 10-31-2024 Albumin [Mass/Vol] 4.0 g/dL Normal 3.9-4.9 [facility] Comment on above: Order Comment: Speci men Type: BLOOD SPECIMEN Ordering Facility: [facility] Address: [address] [place] [address] Performed By: #### 3 3762-6 #### [facility] CLIA [id number] [address] [place] [address] [place] ALP [Catalytic activity/Vol] 81 U/L Normal 34-123 [facility] Comment on above: Order Comment: Speci men Type: BLOOD SPECIMEN Ordering Facility: [facility] Address: [address] [place] [address] Performed By: #### 3 3762-6 #### [facility] CLIA [id number] [address] [place] [address] [place] ALT [Catalytic activity/Vol] 10 U/L Normal 7-38 [facility] Comment on above: Order Comment: Speci men Type: BLOOD SPECIMEN Ordering Facility: [facility] Address: [address] [place] [address] Performed By: #### 3 3762-6 #### [facility] CLIA [id number] [address] [place], [place] [address] [place] Anion gap [Moles/Vol] 11 mmol/L Normal 8-15 [facility] Comment on above: Order Comment: Speci men Type: BLOOD SPECIMEN Ordering Facility: [facility] Address: [address] [place] [address] Performed By: #### 3 3762-6 #### [facility] CLIA [id number] [address] [place] [address] [place] AST [Catalytic activity/Vol] 19 U/L Normal 13-35 [facility] Comment on above: Order Comment: Speci men Type: BLOOD SPECIMEN Ordering Facility: [facility] Address: [address] [place], [place] [address] Performed By: #### 3 3762-6 #### [facility] CLIA [id number] [address] [place] [address] [place] Bilirubin [Mass/Vol] 1.0 mg/dL Normal 0.2-1.3 [facility] System Comment on above: Order Comment: Speci men Type: BLOOD SPECIMEN Ordering Facility: [facility] Address: [address] [place], [place] [address] Performed By: #### 3 3762-6 #### [facility] CLIA [id number] [address] [place] [address] [place] Calcium [Mass/Vol] 9.3 mg/dL Normal 8.5-10.2 [facility] Comment on above: Order Comment: Speci men Type: BLOOD SPECIMEN Ordering Facility: [facility] Address: [address] [place] [address] Performed By: #### 3 3762-6 #### [facility] CLIA [id number] [address] [place] [address] [place] Chloride [Moles/Vol] 83 mmol/L Low 98-107 [facility] Comment on above: Order Comment: Speci men Type: BLOOD SPECIMEN Ordering Facility: [facility] Address: [address] [place] [address] Performed By: #### 3 3762-6 #### [facility] CLIA [id number] [address] [place] [address] [place] CO2 [Moles/Vol] 29 mmol/L Normal 22-30 [facility] Comment on above: Order Comment: Speci men Type: BLOOD SPECIMEN Ordering Facility: [facility] Address: [address] [place] [address] Performed By: #### 3 3762-6 #### [facility] CLIA [id number] [address] [place] [address] [place] Creatinine [Mass/Vol] 2.50 mg/dL High 0.58-0.96 [facility] Comment on above: Order Comment: Speci men Type: BLOOD SPECIMEN Ordering Facility: [facility] Address: [address] [place] [address] Performed By: #### 3 3762-6 #### [facility] CLIA [id number] [address] [place] [address] [place] Creatinine and Glomerular filtration rate.predicted panel (S/P/Bld) 19 mL/min/1.73m??? Low >=60 [facility] Comment on above: Order Comment: Speci men Type: BLOOD SPECIMEN Ordering Facility: [facility] Address: [address] [place] [address] Result Comment: Mira mated Glomerular Filtration Rate (eGFR) is calculated using the 2020 CKD-EPI creatinine equation. This equation utilizes serum creatinine, sex, and age as parameters. The creatinine assay has traceable calibration to isotope dilution-mass spectrometry. Refer to KDIGO guidelines for clinical interpretation. In patients with unstable renal function, e.g. those with acute kidney injury, the eGFR may not accurately reflect actual GFR. Performed By: #### 3 3762-6 #### [facility] CLIA [id number] [address] [address] [place] Glucose [Mass/Vol] 138 mg/dL High 74-99 [facility] Comment on above: Order Comment: Specbecca ricci Type: BLOOD SPECIMEN Ordering Facility: [facility] Address: [address] [place] [address] Result Comment: The [place] Diabetes Association (ADA) provides guidance for cutoff [...] Standards of Medical Care in Diabetes 2016, [place] Diabetes Association. Diabetes Care. 2016.39(Suppl 1). Performed By: #### 3 3762-6 #### [facility] CLIA [id number] [address] [place] [address] [place] Potassium [Moles/Vol] 3.8 mmol/L Normal 3.7-5.1 [facility] Comment on above: Order Comment: Annie ricci Type: BLOOD SPECIMEN Ordering Facility: [facility] Address: [address] [id number] Performed By: #### 3 3762-6 #### [facility] CLIA [id number] [address] [address] [place] Protein [Mass/Vol] 7.0 g/dL Normal 6.3-8.0 [facility] Comment on above: Order Comment: Speci men Type: BLOOD SPECIMEN Ordering Facility: [facility] Address: [address] [place] [address] Performed By: #### 3 3762-6 #### [facility] CLIA [id number] [address] [place], [place] [address] [place] Sodium [Moles/Vol] 123 mmol/L Low 136-144 [facility] Comment on above: Order Comment: Speci men Type: BLOOD SPECIMEN Ordering Facility: [facility] Address: [address] [place], [place] [address] Performed By: #### 3 3762-6 #### [facility] CLIA [id number] [address] [place] [address] [place] Urea nitrogen [Mass/Vol] 53 mg/dL High 7-21 [facility] Comment on above: Order Comment: Speci men Type: BLOOD SPECIMEN Ordering Facility: [facility] Address: [address] [place], [place] [address] Performed By: #### 3 3762-6 #### [facility] CLIA [id number] [address] [place], [place] [address] [place] MAGNESIUMon 10-31-2024 Magnesium [Mass/Vol] 2 mg/dL 1.7 - 2 .3 mg/dL [facility] Magnesium SerPl-mCncon 10-31 Magnesium [Mass/Vol] 2.0 mg/dL Normal 1.7-2.3 [facility] Comment on above: Order Comment: Speci men Type: BLOOD SPECIMEN Ordering Facility: [facility] Address: [address] [place] [address] Performed By: #### 2 4331-1 #### [facility] CLIA [id number] [address] [place] [address] [place] [facility] CLIA [id number] [address] [place] [address] [place] #### 98346-7 #### [facility] CLIA [id number] [address] [place], [place] [address] [place] [address] [place] Magnesium [Mass/Vol]on 10-31 Interpretation and review of laboratory results Normal [facility] No Panel InformationOrdered By: Shala Segura on 10-31-2024 [facility] Connie [facility] -------- BERTA SANCHES ([id number]) 1945 F [place] Date Time Provider Department 10/12/24 ALBIN GU [facility] During your visit today, we recorded the following information about you: Albin Gu APRN.CNP 10/12/2024 12:36 PM Signed Patient called to schedule appt in [facility]. Patient also mentions she is currently in [place]. She was admitted to the hospital for [...] questions answered at this time. Albin Gu APRN.CNP Allergies As of Date: 10/12/2024 Noted Allergy Reaction PROTAMINE 01/12/2022 10 - Anaphylaxis Comments: Had acute drop in blood pressure and end tidal Co2 shortly after administration during watchman procedure on 01/12/22, treated with 60 mcg epinephrine and 10 mg dexamethasone with good response. 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 [facility] 07-31-20[facility] -------- BERTA SANCHES ([id number]) 1945 F [facility] Date Time Provider Department 07/31/24 MELIDA KOO [facility] During your visit today, we recorded the following information about you: Melida Koo APRN.SIGN BOARD ERECTOR 07/31/2024 12:00 PM Signed Pt called to request refill for KDur as she has run out of prescription. She states that she is currently in [place] and will be in [place] until October. [facility] called in [place], [place]. Spoke with Pharmacist on duty. Rx for KDur 10 meq PO daily given verbally #90 with no refills. Melida Koo APRN.[facility] Allergies As of Date: 07/31/2024 Noted Allergy Reaction PROTAMINE 01/12/2022 10 - Anaphylaxis Comments: Had acute drop in blood pressure and end tidal Co2 shortly after administration during watchman procedure on 01/12/22, treated with 60 mcg epinephrine and 10 mg dexamethasone with good response. 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 Normal [facility] 25(OH)D3 SerPl-mCncon 2024 25-hydroxyvitamin D3 [Mass/Vol] 41.9 ng/mL Normal 31.0-80.0 [facility] Comment on above: Order Comment: Speci men Type: BLOOD SPECIMEN Ordering Facility: [facility] Address: [address] [place] [address] Result Comment: Clas sification of 25 [place] Vitamin D status: Deficiency/Insufficiency: < or = 30 ng/ml. Sufficiency/Optimal Levels: 31-80 ng/mL Toxicity: > 100 ng/mL. Test performed by chemiluminescent immunoassay. Performed By: #### 2 4331-1 #### [facility] CLIA [id number] [address] [place] [address] [place] [facility] CLIA [id number] [address] [place] [address] [place] #### 87905-6 #### [facility] CLIA [id number] [address] [place] [address] [place] ALBUMIN/CREATININE RATIO, INEon 07-07-2024 Albumin DL <= 20 mg/L (U) [Mass/Vol] 21.0 mg/L Normal [facility] Comment on above: Order Comment: Speci men Type: BLOOD SPECIMEN Ordering Facility: [facility] Address: [address] [place] [address] Performed By: #### 2 4331-1 #### [facility] CLIA [id number] [address] [place] [address] [place] [facility] CLIA [id number] [address] [place] [address] [place] #### 43440-1 #### [facility] CLIA [id number] [address] [place] [address] [place] Albumin/Creatinine (U) [Mass ratio] 34 mg/g High <30 [facility] Comment on above: Order Comment: Speci men Type: BLOOD SPECIMEN Ordering Facility: [facility] Address: [address] [place] [address] Result Comment: Adul t Male and Female Nephrotic Criteria: <30 mg/g is considered normal to mildly increased 30-300 mg/g is considered moderately increased >300 mg/g is considered severely increased KDIGO. (2013). KDIGO 2012 Clinical Practice Guideline for the Evaluation and Management of Chronic Kidney Disease. Official Journal of the International Society of Nephrology, 3(1), 1-150. Performed By: #### 2 4331-1 #### [facility] CLIA [id number] [address] [place] [address] [place] [id number] [place] [address] [place] #### 69963-1 #### [facility] CLIA [id number] [address] [place] [address] [place] Creatinine (U) [Mass/Vol] 61.6 mg/dL Normal 20.0-300.0 [facility] Comment on above: Order Comment: Speci men Type: BLOOD SPECIMEN Ordering Facility: [facility] Address: [address] [place] [address] Performed By: #### 2 4331-1 #### [facility] CLIA [id number] [address] [place] [address] [place] [id number] [place] [address] [place] #### 72967-7 #### [facility] CLIA [id number] [address] [place] [address] [place] Basic metabolic 2000 panelon 07-07-2024 Anion gap [Moles/Vol] 13 mmol/L Normal 8-15 [facility] Comment on above: Order Comment: Speci men Type: BLOOD SPECIMEN Ordering Facility: [facility] Address: [address] [place] [address] Performed By: #### 3 3762-6 #### [facility] CLIA [id number] [address] [place], [place] [address] [place] Calcium [Mass/Vol] 9.8 mg/dL Normal 8.5-10.2 [facility] Comment on above: Order Comment: Speci men Type: BLOOD SPECIMEN Ordering Facility: [facility] Address: [address] [place] [address] Performed By: #### 3 3762-6 #### [facility] CLIA [id number] [address] [place] [address] [place] Chloride [Moles/Vol] 100 mmol/L Normal 98-107 [facility] Comment on above: Order Comment: Speci men Type: BLOOD SPECIMEN Ordering Facility: [facility] Address: [address] [place] [address] Performed By: #### 3 3762-6 #### [facility] CLIA [id number] [address] [place] [address] [place] CO2 [Moles/Vol] 25 mmol/L Normal 22-30 [facility] Comment on above: Order Comment: Speci men Type: BLOOD SPECIMEN Ordering Facility: [facility] Address: [address] [place], [place] [address] Performed By: #### 3 3762-6 #### [facility] CLIA [id number] [address] [place], [place] [address] [place] Creatinine [Mass/Vol] 1.12 mg/dL High 0.58-0.96 [facility] Comment on above: Order Comment: Speci men Type: BLOOD SPECIMEN Ordering Facility: [facility] Address: [address] [place] [address] Performed By: #### 3 3762-6 #### [facility] CLIA [id number] [address] [place] [address] [place] Creatinine and Glomerular filtration rate.predicted panel (S/P/Bld) 50 mL/min/1.73m??? Low >=60 [facility] Comment on above: Order Comment: Annie ricci Type: BLOOD SPECIMEN Ordering Facility: [facility] Address: [address] [place] [address] Result Comment: Mira mated Glomerular Filtration Rate (eGFR) is calculated using the 2020 CKD-EPI creatinine equation. This equation utilizes serum creatinine, sex, and age as parameters. The creatinine assay has traceable calibration to isotope dilution-mass spectrometry. Refer to KDIGO guidelines for clinical interpretation. In patients with unstable renal function, e.g. those with acute kidney injury, the eGFR may not accurately reflect actual GFR. Performed By: #### 3 3762-6 #### [facility] CLIA [id number] [address] [place] [address] [place] Glucose [Mass/Vol] 118 mg/dL High 74-99 [facility] Comment on above: Order Comment: Annie ricci Type: BLOOD SPECIMEN Ordering Facility: [facility] Address: [address] [place] [address] Result Comment: The [place] Diabetes Association (ADA) provides guidance for cutoff [...] Standards of Medical Care in Diabetes 2016, [place] Diabetes Association. Diabetes Care. 2016.39(Suppl 1). Performed By: #### 3 3762-6 #### [facility] CLIA [id number] [address] [place] [address] [place] Potassium [Moles/Vol] 4.4 mmol/L Normal 3.7-5.1 [facility] Comment on above: Order Comment: Speci men Type: BLOOD SPECIMEN Ordering Facility: [facility] Address: [address] [place] [address] Performed By: #### 3 3762-6 #### [facility] CLIA [id number] [address] [place] [address] [place] Sodium [Moles/Vol] 138 mmol/L Normal 136-144 [facility] Comment on above: Order Comment: Speci men Type: BLOOD SPECIMEN Ordering Facility: [facility] Address: [address] [place] [address] Performed By: #### 3 3762-6 #### [facility] CLIA [id number] [address] [place] [address] [place] Urea nitrogen [Mass/Vol] 34 mg/dL High 7-21 [facility] Comment on above: Order Comment: Speci men Type: BLOOD SPECIMEN Ordering Facility: [facility] Address: [address] [place] [address] Performed By: #### 3 3762-6 #### [facility] CLIA [id number] [address] [place] [address] [place] CNOVon 07-07-2024 CNOV Office Visit ([facility] ) -------- BERTA SANCHES ([id number]) 1945 F [facility] Date Time Provider Department 07/07/24 8:00 AM DEYSI NICHOLSON During your visit today, we recorded the following information about you: Pulse Respiration Blood pressure Weight 69/minute 16/minute 136/70 63.5 kg Deysi Nicholson APRN.SIGN BOARD ERECTOR 07/07/2024 12:41 PM Signed This is a 78 year old female who presents today with: Patient presents with: Establish Care HISTORY OF PRESENT ILLNESS: Berta Sanches is a 78 year old female. Patient presents with: Establish Care Pt presents today to [facility]. HTN: Patient is compliant with meds Yes. [...] 06/01/16 Mitral valve regurgitation Pacemaker 10/21/[address] TRELL VERNON [id number] pulse generator, his bundle lead, right atrial lead Peripheral arterial disease (HCC) Rheumatic fever Steatosis, liver 03/26/2014 fatty liver on US. 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 Lua PACEMAKER 10/2019 PART. HYSTERECTOMY W/WO RMVL OVARIES/TUBES 1974 h/o cervical cancer ovaries remain PAST SURGICAL HISTORY OF 1996 Aortic valve repair, Dr. Apodaca PAST SURGICAL HISTORY OF 2001 [address] Beltrán, [facility] PAST SURGICAL HISTORY OF 2015 clipping and [...] (BLOOD PRESSURE KIT) 1 Each once daily. (more content not included)... Normal [facility] HbA1c (Bld)on 07-07-2024 Average glucose Estimated from glycated hemoglobin (Bld) [Mass/Vol] 151 mg/dL Normal [facility] Comment on above: Order Comment: Annie ricci Type: BLOOD SPECIMEN Ordering Facility: [facility] Address: [address] [place] [address] Result Comment: eAG: (Estimated average glucose) is a calculated value from HgbA1c and is distribution sales representative of the average blood glucose level in the last 2-3 month period. Performed By: #### 3 3762-6 #### [facility] CLIA [id number] [address] [place] [address] [place] HbA1c (Bld) [Mass fraction] 6.9 % High 4.3-5.6 [facility] Comment on above: Order Comment: Annie ricci Type: BLOOD SPECIMEN Ordering Facility: [facility] Address: [address] [place] [address] Result Comment: [place] Diabetes Association guidelines indicate that patients with HgbA1c in the range 5.7-6.4% are at increased risk for development of diabetes, and intervention by lifestyle modification may be beneficial. HgbA1c greater or equal to 6.5% is considered diagnostic of diabetes. Performed By: #### 3 3762-6 #### [facility] CLIA [id number] [address] [place] [address] [place] TSH SerPl-aCncon 07-07-2024 TSH Qn 2.650 m[IU]/L Normal 0.270-4.200 [facility] Comment on above: Order Comment: Annie ricci Type: BLOOD SPECIMEN Ordering Facility: [facility] Address: [address] [place] [address] Performed By: #### 3 3762-6 #### [facility] CLIA [id number] [address] [place] [address] OF [place] CNOVon 04-07-2024 CNOV Office Visit ([facility] ) -------- BERTA SANCHES ([id number]) 1945 F [facility] Date Time Provider Department 04/07/24 9:00 AM ALBIN GU [facility] During your visit today, we recorded the following information about you: Pulse Blood pressure Weight 91/minute 142/47 62.1 kg Albin Gu APRN.SIGN BOARD ERECTOR 04/07/2024 9:57 AM Signed [facility] [place] [facility] OUTPATIENT VISIT DATE April [...] day and added spironolactone. Follows with Dr. Burdick and was last seen in January. Past [...] a boat and take it out on [place] to fish. IMPRESSION: NYHA Functional Class: II [...] Abnormal CXR chronic bilateral interstitial markings, moderate car (more content not included)... Normal [facility] Urgent Care Visit Reporton 0 02-28-2024 Urgent Care Visit Report [facility] [address], [address] [place] [address] OFFICE VISIT Date of Service: 02/28/24 MR#: [id number] Acct: [id number] Name: BERTA SANCHES SCOTTIE Rep #: [id number] : 1945 Provider: FERNANDO [place] Age/Sex: 78/F Location: [facility] Status: Signed Intake Vital Signs 04/07/23 15:21 02/28/24 15:52 Height 5 ft 3 in 5 ft 3 in Weight: 150 lb BMI 26.5 BP 128/86 H Blood Pressure Location Rt brachial Position Sitting Respiration 16 Pulse 86 Pulse Source Monitor Temp 98.5 F Temp Source Temporal Pulse Oximetry (%) 98 Oxygen Delivery Method room air Intake Visit Reasons: L WRIST INJURY/LACERATION/DOG SCRATCH Chief Complaint: LT WRIST INJURY/ LACERATION/ DOG SCRATCH Assistant Laboratory Director Required: No Accompanied by: Is patient in pain?: No Allergies propofol Adverse Reaction (Mild, Verified 02/28/24 15:51) Low blood pressure Medications ???Medication ???Instructions ???Recorded ???Confirmed ???Type rivaroxaban 20 mg tablet 15 mg PO DAILY blood thinner 07/13/15 02/28/24 History simvastatin 40 mg tablet 20 mg PO QHS cholesterol 07/13/15 02/28/24 History furosemide 20 mg tablet 20 mg PO DAILY diuretic 11/15/17 02/28/24 History lisinopril 40 mg tablet 20 mg PO DAILY blood pressure 12/02/17 02/28/24 History amlodipine 10 mg tablet 5 mg PO BID 03/24/19 02/28/24 History coenzyme Q10 100 mg capsule 100 mg PO DAILY 03/24/19 02/28/24 History magnesium oxide 200 mg PO DAILY 02/13/21 02/28/24 History metoprolol succinate 25 mg 25 mg PO DAILY 02/13/21 02/28/24 History tablet,extended release 24 hr cephalexin 500 mg capsule 500 mg PO TID #15 caps 02/28/24 02/28/24 Rx Have you fallen in the past year?: No [facility] Medical History (Updated 02/28/24 @ 16:38 by Bi KING, [place]) Skin tear of left forearm without complication Skin cancer Cardiac arrhythmia CHF exacerbation Brain aneurysm Anxiety Family history of brain aneurysm PAD (peripheral artery disease) PAF (paroxysmal atrial fibrillation) Obesity (BMI 30.0-34.9) Laceration of right middle finger Heart disease Diabetes History of cancer Fever HTN (hypertension) Diabetes mellitus type 2 in obese Chest pain, musculoskeletal HLD (hyperlipidemia) URI (upper respiratory infection) Bronchospasm with bronchitis, acute Surgical History history skin cancer surgery history bilateral ear surgeries History of hysterectomy H/O aortic valve replacement Family History Father Heart disease High cholesterol Mother Heart disease Social History Smoking Status: Never smoker alcohol intake: current alcohol intake frequency: a few times a month substance use type: does not use HPI HPI Chief Complaint: LT WRIST INJURY/ LACERATION/ DOG SCRATCH Details: BERTA SANCHES, is a 78 F who presents to the office today for initial evaluation status post skin tear from dog nail scratching the same x 2 to the left forearm, with 1 linear approximately 1-1/2 cm in length and the other L-shaped approximately 2 cm in length and both oozing blood since the time of the injury approximately 36 hours ago. No complaints of fever, chills, sweats, though due to patient's past medical history she is concerned that she could potentially get an infection and is requesting an antibiotic. No jvpc-ryw-bntfkvi products taken to assist. No other associated symptoms and no other alleviating/aggravating factors. ROS Const Constitutional: No other (As above) Exam Const General: cooperative, healthy appearing and no acute distress Orientation: alert and awake Resp Effort Inspection: normal respiratory effort and able to speak in complete sentences Cardio Rate: regular rate Pulses: radial pulses present Skin General: no rashes or lesions noted Neuro General: patient alert and patient awake Cognition: normal cognition Speech: speech normal Extrem General: normal to inspection Other: except 1 linear laceration 1-1/2 cm in length and the other L-shaped approximately 2 cm in length, both oozing blood. Both sites cleansed, then bacitracin ointment, nonadherent dressing, 4 x 4's, and Coban applied and a pressure dressing format and instructed on how to replicate on a daily basis at home which both patient and spouse understood. Psych Appearance: grossly normal Mental Status: mental status grossly normal Mood: congruent mood Affect: normal affect Speech and Movement: speech and movement normal Attitude: cooperative Coding Level of Care Code Off vis,new,level 3 Diagnoses Skin tear of left forearm without complication S51.812A Assessment and (more content not included)... Normal [facility] 02-21-2024 [facility] Telephone ([facility]) -------- BERTA SANCHES ([id number]) 1945 F [facility] Date Time Provider Department 02/21/24 MELIDA KOO [facility] During your visit today, we recorded the following information about you: Melida Koo APRN.CNP 02/21/2024 12:11 PM Signed Called and spoke with patient regarding NTpBNP. Discussed that level has decreased with increase in her diuretics for a short period of time for increased symptoms. Discussed that we were looking for decrease from result drawn 2 weeks ago during exacerbation, which was noted. She reports that she is feeling well. Weight is much improved and she is keeping it down. She denies SOB with exertion or at rest, PND, orthopnea, or the presence of edema. She will continue on her current medications at current doses. She will follow up with Cruz Gu CNP in April however, should she have an increase in her symptoms, she can call office and she can be seen sooner. Pt states understanding of plan of care. Melida Koo APRN.JASPREET Allergies As of Date: 02/21/2024 Noted Allergy Reaction PROTAMINE 01/12/2022 10 - Anaphylaxis Comments: Had acute drop in blood pressure and end tidal Co2 shortly after administration during watchman procedure on 01/12/22, treated with 60 mcg epinephrine and 10 mg dexamethasone with good response. PROPOFOL 04/07/2023 14 - Other: See Comments Comments: Hypotension Date Reviewed: 01/17/2024 Reviewed by: Carla Burdick MD - Fully Assessed Prescriptions as of 02/21/2024 - furosemide (LASIX) 20 mg tablet Take 2 tablets by mouth once daily. TAKE AN EXTRA 20 MG in the afternoon if you note greater than 3 lbs weight gain in 24 hours - simvastatin (ZOCOR) 20 mg tablet Take 1 tablet by mouth daily at bedtime. - spironolactone (ALDACTONE) 25 mg tablet Take 0.5 tablets by mouth once daily. - potassium chloride [...] once daily. 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 Normal [facility] NT-proBNP [facility] 02-14 Natriuretic peptide.B prohormone N-Terminal [Mass/Vol] 5922 pg/mL High <450 [facility] Comment on above: Order Comment: Speci men Type: BLOOD SPECIMEN Ordering Facility: [facility] Address: [address] [place] [address] Performed By: #### 3 3762-6 #### [facility] CLIA [id number] [address] [place] [address] [place] CNPShantelle 02-07-2024 CNPN Telephone ([facility]) -------- BERTA SANCHES ([id number]) 1945 F [facility] Date Time Provider Department 02/07/24 MELIDA KOO [facility] During your visit today, we recorded the following information about you: Melida Koo APRN.SIGN BOARD ERECTOR 02/07/2024 8:28 AM Signed Pt called and left message on voicemail stating that she was feeling much better since following instructions that Albin Gu had given her. She reported that SOB and edema was improved. She has concerns about NTpBNP and when she should have that rechecked. Called patient and she did not answer. Message left for call back. Melida Koo APRN.SIGN BOARD ERECTOR Allergies As of Date: 02/07/2024 Noted Allergy Reaction PROTAMINE 01/12/2022 10 - Anaphylaxis Comments: Had acute drop in blood pressure and end tidal Co2 shortly after administration during watchman procedure on 01/12/22, treated with 60 mcg epinephrine and 10 mg dexamethasone with good response. PROPOFOL 04/07/2023 14 - Other: See Comments Comments: Hypotension Date Reviewed: 01/17/2024 Reviewed by: Carla Burdick MD - Fully Assessed Reason for Visit: Recheck [92] Prescriptions as of 02/07/2024 - furosemide (LASIX) 20 mg tablet Take 2 tablets by mouth once daily. TAKE AN EXTRA 20 MG in the afternoon if you note greater than 3 lbs weight gain in 24 hours - simvastatin (ZOCOR) 20 mg tablet Take 1 tablet by mouth daily at bedtime. - spironolactone (ALDACTONE) 25 mg tablet Take 0.5 tablets by mouth once daily. - potassium chloride [...] once daily. 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 [facility] -------- BERTA SANCHES ([id number]) 1945 F [facility] Date Time Provider Department 02/04/24 MARIBELL KING During your visit today, we recorded the following information about you: Ying Fuentes LPN 02/04/2024 2:12 PM Signed ----- Message from Maribell King APRN.CNP sent at 02/04/2024 2:02 PM EDT ----- Please call the patient and report lab results revealed stable kidney function, normal potassium level, normal liver function, cholesterol is under good control, and elevated BNP. [place] Vinson Jessica, LPN 02/04/2024 2:16 PM Signed I spoke to and informed them of Maribell's response to lab results and recommendations. Patient voiced understanding. Patient states BNP is elevated from 2 months ago. Patient asking if she should make any changes. Patient c/o weight gain and SOB with activity. GOPI James Nichole L, APRN.CNP 02/07/2024 12:49 PM Addendum Patient should double Lasix to 40 mg BID for 3 days, then recheck BMP that has been ordered per PCP. Please ask patient to monitor daily weights. [place] Vinson Jessica, LPN 02/07/2024 12:58 PM Signed Spoke to and informed her of Maribell's response and recommendations. Patient voiced understanding. States she spoke to HF clinic and they informed her to do the same and to recheck BNP next week. Patient states weight and SOB did improve with increased dose. She lost a little over 5 pounds. Patient she will follow their directions and will have results sent to Maribell as well. Ying Fuentes LPN Allergies As of Date: 02/04/2024 Noted Allergy Reaction PROTAMINE 01/12/2022 10 - Anaphylaxis Comments: Had acute drop in blood pressure and end tidal Co2 shortly after administration during watchman procedure on 01/12/22, treated with 60 mcg epinephrine and 10 mg dexamethasone with good response. PROPOFOL 04/07/2023 14 - Other: See Comments Comments: Hypotension Date Reviewed: 01/17/2024 Reviewed by: Carla Burdick MD - Fully Assessed Reason for Visit: Results [95] Primary Visit Diagnosis:Chronic kidney disease, unspecified CKD stage [N18.9] Order(s):BASIC METABOLIC PANEL [SQBMP] Order #: [id number] FUTURE Prescriptions as of 02/07/2024 - furosemide (LASIX) 20 mg tablet Take 2 tablets by mouth once daily. TAKE AN EXTRA 20 MG in the afternoon if you note greater than 3 lbs weight gain in 24 hours - simvastatin (ZOCOR) 20 mg tablet Take 1 tablet by mouth daily at bedtime. - spironolactone (ALDACTONE) 25 mg tablet Take 0.5 tablets by mouth once daily. - potassium chloride [...] once daily. 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 [facility] -------- BERTA SANCHES ([id number]) 1945 F [facility] Date Time Provider Department 02/04/24 ALBIN GU [facility] During your visit today, we recorded the following information about you: Albin Gu APRN.SIGN BOARD ERECTOR 02/04/2024 11:36 AM Signed Returned patient phone call regarding increase in weight and elevated NT BNP. Weight is 143 lbs. She has been taking total of 60 mg lasix for 4 days. Labs were recently ordered by cardiology. Pt does have historically elevated NT BNP however, most recent is higher. Discussed the patient coming in to office same day for IV lasix however, patient not able to come in. Will instruct patient to take additional 40 mg lasix in the afternoon for a total of 80 mg for 3 days. She is to take additional tablet of potassium for 2 days. Will schedule her for IV lasix on Wednesday should she need. Plan of care reviewed with patient. All questions answered at this time. Albin Gu APRN.SIGN BOARD ERECTOR Allergies As of Date: 02/04/2024 Noted Allergy Reaction PROTAMINE 01/12/2022 10 - Anaphylaxis Comments: Had acute drop in blood pressure and end tidal Co2 shortly after administration during watchman procedure on 01/12/22, treated with 60 mcg epinephrine and 10 mg dexamethasone with good response. PROPOFOL 04/07/2023 14 - Other: See Comments Comments: Hypotension Date Reviewed: 01/17/2024 Reviewed by: Carla Burdick MD - Fully Assessed Reason for Visit: Appointment [186] Prescriptions as of 02/04/2024 - furosemide (LASIX) 20 mg tablet Take 2 tablets by mouth once daily. TAKE AN EXTRA 20 MG in the afternoon if you note greater than 3 lbs weight gain in 24 hours - simvastatin (ZOCOR) 20 mg tablet Take 1 tablet by mouth daily at bedtime. - spironolactone (ALDACTONE) 25 mg tablet Take 0.5 tablets by mouth once daily. - potassium chloride [...] once daily. 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 Normal [facility] Comprehensive metabolic 2000 panelon 02-03-2024 Albumin [Mass/Vol] 4.0 g/dL Normal 3.9-4.9 [facility] Comment on above: Order Comment: Speci men Type: BLOOD SPECIMEN Ordering Facility: [facility] Address: [address] [place] [address] Performed By: #### 3 3762-6 #### [facility] CLIA [id number] [address] [place] [address] [place] ALP [Catalytic activity/Vol] 102 U/L Normal 34-123 [facility] Comment on above: Order Comment: Speci men Type: BLOOD SPECIMEN Ordering Facility: [facility] Address: [address] [place] [address] Performed By: #### 3 3762-6 #### [facility] CLIA [id number] [address] [place] [address] [place] ALT [Catalytic activity/Vol] 10 U/L Normal 7-38 [facility] Comment on above: Order Comment: Speci men Type: BLOOD SPECIMEN Ordering Facility: [facility] Address: [address] [place] [address] Performed By: #### 3 3762-6 #### [facility] CLIA [id number] [address] [place] [address] [place] Anion gap [Moles/Vol] 11 mmol/L Normal 8-15 [facility] Comment on above: Order Comment: Speci men Type: BLOOD SPECIMEN Ordering Facility: [facility] Address: [address] [place] [address] Performed By: #### 3 3762-6 #### [facility] CLIA [id number] [address] [place] [address] [place] AST [Catalytic activity/Vol] 16 U/L Normal 13-35 [facility] Comment on above: Order Comment: Speci men Type: BLOOD SPECIMEN Ordering Facility: [facility] Address: [address] [place] [address] Performed By: #### 3 3762-6 #### [facility] CLIA [id number] [address] [place] [address] [place] Bilirubin [Mass/Vol] 1.1 mg/dL Normal 0.2-1.3 [facility] Comment on above: Order Comment: Speci men Type: BLOOD SPECIMEN Ordering Facility: [facility] Address: [address] [place] [address] Performed By: #### 3 3762-6 #### [facility] CLIA [id number] [address] [place] [address] [place] Calcium [Mass/Vol] 9.5 mg/dL Normal 8.5-10.2 [facility] Comment on above: Order Comment: Speci men Type: BLOOD SPECIMEN Ordering Facility: [facility] Address: [address] [place] [address] Performed By: #### 3 3762-6 #### [facility] CLIA [id number] [address] [place] [address] [place] Chloride [Moles/Vol] 98 mmol/L Normal 98-107 [facility] Comment on above: Order Comment: Speci men Type: BLOOD SPECIMEN Ordering Facility: [facility] Address: [address] [place] [address] Performed By: #### 3 3762-6 #### [facility] CLIA [id number] [address] [place] [address] [place] CO2 [Moles/Vol] 22 mmol/L Normal 22-30 [facility] Comment on above: Order Comment: Speci men Type: BLOOD SPECIMEN Ordering Facility: [facility] Address: [address] [place] [address] Performed By: #### 3 3762-6 #### [facility] CLIA [id number] [address] [place] [address] [place] Creatinine [Mass/Vol] 1.28 mg/dL High 0.58-0.96 [facility] Comment on above: Order Comment: Speci men Type: BLOOD SPECIMEN Ordering Facility: [facility] Address: [address] [place] [address] Performed By: #### 3 3762-6 #### [facility] CLIA [id number] [address] [place] [address] [place] Creatinine and Glomerular filtration rate.predicted panel (S/P/Bld) 43 mL/min/1.73m??? Low >=60 [facility] Comment on above: Order Comment: Speci men Type: BLOOD SPECIMEN Ordering Facility: [facility] Address: [address] [place] [address] Result Comment: Mira mated Glomerular Filtration Rate (eGFR) is calculated using the 2020 CKD-EPI creatinine equation. This equation utilizes serum creatinine, sex, and age as parameters. The creatinine assay has traceable calibration to isotope dilution-mass spectrometry. Refer to KDIGO guidelines for clinical interpretation. In patients with unstable renal function, e.g. those with acute kidney injury, the eGFR may not accurately reflect actual GFR. Performed By: #### 3 3762-6 #### [facility] CLIA [id number] [address] [place] [address] [place] Glucose [Mass/Vol] 147 mg/dL High 74-99 [facility] Comment on above: Order Comment: Annie ricci Type: BLOOD SPECIMEN Ordering Facility: [facility] Address: [address] [place] [address] Result Comment: The [place] Diabetes Association (ADA) provides guidance for cutoff [...] Standards of Medical Care in Diabetes 2016, [place] [employer] Association. Diabetes Care. 2016.39(Suppl 1). Performed By: #### 3 3762-6 #### [facility] CLIA [id number] [address] [place] [address] [place] Potassium [Moles/Vol] 4.8 mmol/L Normal 3.7-5.1 [facility] Comment on above: Order Comment: Annie ricci Type: BLOOD SPECIMEN Ordering Facility: [facility] Address: [address] [place] [address] Performed By: #### 3 3762-6 #### [facility] CLIA [id number] [address] [place] [address] [place] Protein [Mass/Vol] 7.2 g/dL Normal 6.3-8.0 [facility] Comment on above: Order Comment: Annie ricci Type: BLOOD SPECIMEN Ordering Facility: [facility] Address: [address] [place] [address] Performed By: #### 3 3762-6 #### [facility] CLIA [id number] [address] [place] [address] [place] Sodium [Moles/Vol] 131 mmol/L Low 136-144 [facility] Comment on above: Order Comment: Speci men Type: BLOOD SPECIMEN Ordering Facility: [facility] Address: [address] [place] [address] Performed By: #### 3 3762-6 #### [facility] CLIA [id number] [address] [place] [address] [place] Urea nitrogen [Mass/Vol] 34 mg/dL High 7-21 [facility] Comment on above: Order Comment: Speci men Type: BLOOD SPECIMEN Ordering Facility: [facility] Address: [address] [place] [address] Performed By: #### 3 3762-6 #### [facility] CLIA [id number] [address] [place] [address] [place] Lipid 1996 panelon 4 Cholesterol [Mass/Vol] 98 mg/dL Normal <200 [facility] Comment on above: Order Comment: Speci men Type: BLOOD SPECIMEN Ordering Facility: [facility] Address: [address] [place] [address] Result Comment: <200 mg/dL, Desirable 200-239 mg/dL, Borderline high >239 mg/dL, High Performed By: #### 2 4331-1 #### [facility] CLIA [id number] [address] [place] [address] [place] [facility] CLIA [id number] [address] [place] [address] [place] #### 60974-5 #### [facility] CLIA [id number] [address] [facility] [address] [place] Cholesterol in HDL [Mass/Vol] 34 mg/dL Low >39 [facility] Comment on above: Order Comment: Speci men Type: BLOOD SPECIMEN Ordering Facility: [facility] Address: [address] [place] [id number] Result Comment: 40-5 9 mg/dL, Acceptable >59 mg/dL, High: Negative risk factor for coronary heart disease <40 mg/dL, Low: Positive risk factor for coronary heart disease Performed By: #### 2 4331-1 #### [facility] CLIA [id number] [address] [place], [place] [address] [place] [address] [place] [facility] CLIA [id number] [address] [place] [address] [place] #### 00152-5 #### [facility] CLIA [id number] [facility] [place] [address] [place] Cholesterol in LDL [Mass/Vol] 51 mg/dL Normal <100 [facility] Comment on above: Order Comment: Speci men Type: BLOOD SPECIMEN Ordering Facility: [facility] Address: [address] [place] [address] Result Comment: <100 mg/dL, Optimal 100-129 mg/dL, Near optimal/above optimal 130-159 mg/dL, Borderline high 160-189 mg/dL, High >189 mg/dL, Very high Secondary prevention optimal LDL Cholesterol levels are recommended to be < 70 mg/dL Performed By: #### 2 4331-1 #### [facility] CLIA [id number] [address] [place] [address] [place] [facility] CLIA [id number] [address] [place] [address] [place] #### 55316-2 #### [facility] CLIA [id number] [address] [place] [address] [place] Cholesterol in LDL/Cholesterol in HDL [Mass ratio] 1.50 {ratio} Normal <2.54 [facility] Comment on above: Order Comment: Speci men Type: BLOOD SPECIMEN Ordering Facility: [facility] Address: [address] [place] [address] Result Comment: Refe rence: 1. National Cholesterol Education Program ATP III Guideline At-A-Glance Quick Desk Reference: National Heart, Lung, and Blood [place]. National Institutes of Health. 2001: NIH Publication No. 01-3305. 2. An International Atherosclerosis Society position paper: global recommendations for the management of dyslipidemia: executive summary, Atherosclerosis. 2014: 232(2):410-413. Performed By: #### 2 4331-1 #### [facility] CLIA [id number] [address] [place] [address] [place] [facility] CLIA [id number] [address] [place] [address] [place] #### 98540-1 #### [facility] CLIA [id number] [address] [place] [address] [place] Cholesterol in VLDL [Mass/Vol] 13 mg/dL Normal <30 [facility] Comment on above: Order Comment: Speci men Type: BLOOD SPECIMEN Ordering Facility: [facility] Address: [address] [place] [address] Performed By: #### 2 4331-1 #### [facility] CLIA [id number] [address] [place] [address] [place] [id number] [place] [address] [place] #### 76110-1 #### [facility] CLIA [id number] [address] [place] [address] [place] Cholesterol non HDL [Mass/Vol] 64 mg/dL Normal <130 [facility] Comment on above: Order Comment: Speci men Type: BLOOD SPECIMEN Ordering Facility: [facility] Address: [address] [place] [address] Result Comment: <130 mg/dL, Optimal 130-159 mg/dL, Near optimal/above optimal 160-189 mg/dL, Borderline high 190-219 mg/dL, High >219 mg/dL, Very high Secondary prevention optimal non HDL Cholesterol levels are recommended to be <100 mg/dL Performed By: #### 2 4331-1 #### [facility] CLIA [id number] [address] [place] [address] [place] [facility] CLIA [id number] [address] [place] [address] [place] #### 34007-7 #### [facility] CLIA [id number] [address] [place] [address] [place] Cholesterol.total/Chol esterol in HDL [Mass ratio] 2.88 {ratio} Normal <5.10 [facility] Comment on above: Order Comment: Speci men Type: BLOOD SPECIMEN Ordering Facility: [facility] Address: [address] [place] [address] Performed By: #### 2 4331-1 #### [facility] CLIA [id number] [address] [place] [address] [place] [facility] CLIA [id number] [address] [place] [address] [place] #### 16349-1 #### [facility] CLIA [id number] [address] [place] [address] [place] FASTING TIME 12 hrs Normal [facility] Comment on above: Order Comment: Speci men Type: BLOOD SPECIMEN Ordering Facility: [facility] Address: [address] [place] [address] Performed By: #### 2 4331-1 #### [facility] CLIA [id number] [address] [place] [address] [place] [facility] CLIA [id number] [address] [place] [address] [place] #### 85205-9 #### [facility] CLIA [id number] [address] [place] [address] [place] Triglyceride [Mass/Vol] 67 mg/dL Normal <150 [facility] Comment on above: Order Comment: Speci men Type: BLOOD SPECIMEN Ordering Facility: [facility] Address: [address] [place] [address] Result Comment: <150 mg/dL, Normal 150-199 mg/dL, Borderline high 200-499 mg/dL, High >499 mg/dL, Very high Performed By: #### 2 4331-1 #### [facility] CLIA [id number] [address] [place] [address] [place] [facility] CLIA [id number] [address] [place] [address] [place] #### [id number] #### [facility] CLIA [id number] [address] [place] [address] [place] NT-proBNP SerPl-ncon 02-02 Natriuretic peptide.B prohormone N-Terminal [Mass/Vol] 8577 pg/mL High <450 [facility] Comment on above: Order Comment: Speci men Type: BLOOD SPECIMEN Ordering Facility: [facility] Address: [address] [place] [address] Performed By: #### 2 4331-1 #### [facility] CLIA [id number] [address] [place] [address] [place] [facility] CLIA [id number] [address] [place] [address] [place] #### 36631-2 #### [facility] CLIA [id number] [address] [place] [address] [place] Phosphate SerPl-mCncon 02-02 Phosphate [Mass/Vol] 3.3 mg/dL Normal 2.7-4.8 [facility] Comment on above: Order Comment: Speci men Type: BLOOD SPECIMEN Ordering Facility: [facility] Address: [address] [place] [address] Performed By: #### 3 3762-6 #### [facility] CLIA [id number] [address] [place] [address] OF [facility] CNOVon 01-17-2024 CNOV Office Visit (CAWSTR ) -------- BERTA SANCHES ([id number]) 1945 [facility] Date Time Provider Department 01/17/24 9:20 AM CARLA BURDICK During your visit today, we recorded the following information about you: Pulse Blood pressure Weight Height 64/minute 157/59 66.8 kg 1.575 m Carla Burdick MD 01/17/2024 10:36 AM [facility] SECTION OF [facility]ION[facility] CARDIOLOGY Cardiology ([facility]) [address] [facility] [id number] OUTPATIENT VISIT DATE 01/17/2024 PRIMARY CARE PHYSICIAN: Doreen Le [address] [place] [address] HISTORY OF PRESENT ILLNESS: Ms. Sanches is a 78 year old woman with a history of remote aortic valve replacement with homograft in 1996 and possible repair of the ascending aorta, chronic diastolic congestive heart failure, hypertension, dyslipidemia, atrial fibrillation with history of pulmonary vein isolation procedures, pacemaker placement and watchman procedure who presents for follow-up. Patient was admitted to the hospital in November with acute congestive heart failure. She had had a month of slowly increasing weight and lower extremity edema by the time she presented. She has been much more diligent with following a low-sodium diet. She has been compliant with her Lasix 40 mg daily with increases to 60 mg daily as needed. She denies symptoms consistent with PND orthopnea. She still has some mild swelling in her legs. She describes shortness of breath on exertion. She denies symptoms of chest pain or pressure. She has not had palpitations, lightheadedness, dizziness, [...] interstitial markings, moderate cardiomegaly Atrial fibrillation (HCC) Pdero aneurysm of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 (peripheral artery disease) PAF (paroxysmal atrial fibrillation) Skin cancer URI (upper respiratory infection) Home Medications rivaroxaban 20 mg tablet 15 mg PO DAILY blood thinner 07/13/15 [History Last Taken 03/23/19] simvastatin 40 mg tablet 20 mg PO QHS cholesterol 07/13/15 [History Last Taken 03/23/19] furosemide 20 mg tablet 20 mg PO DAILY diuretic 11/15/17 [History Last Taken 03/24/19] lisinopril 40 mg tablet 20 mg PO DAILY blood pressure 12/02/17 [History Last Taken 03/24/19] amlodipine 10 mg tablet 5 mg PO BID 03/24/19 [History Last Taken 03/24/19] coenzyme Q10 100 mg capsule 100 mg PO DAILY 03/24/19 [History Last Taken 03/23/19] magnesium oxide 200 mg PO DAILY 02/13/21 [History Last Taken Unknown] metoprolol succinate 25 mg tablet,extended release 24 hr 25 mg PO DAILY 02/13/21 [History Last Taken Unknown] Allergy/AdvReac Type Severity Reaction Status Date / Time propofol AdvReac Mild Low blood Verified 04/07/23 15:26 pressure Family History Father Heart disease High cholesterol Mother Heart disease Surgical History H/O aortic valve replacement history bilateral ear surgeries History of hysterectomy history skin cancer surgery Social History Smoking Status: Never smoker alcohol intake: current alcohol intake frequency: a few times a month substance use type: does not use ROS ROS ED Constitutional Constitutional ED: Denies chills, fever(s) or sweats Eyes Eyes: Denies change in vision ENT ENT ED: Denies dysphagia or sore throat Cardiovascular Cardiovascular: Reports chest pain; Denies leg edema, palpitations or racing heartbeat Respiratory/Chest Respiratory/Chest: Denies cough, dyspnea or dyspnea on exertion Gastrointestinal Gastrointestinal: Denies abdominal pain, diarrhea, nausea or vomiting Genitourinary Genitourinary ED: Denies dysuria, hematuria or urinary frequency Musculoskeletal Musculoskeletal: Reports neck pain; Denies back pain or extremity pain Integumentary Denies rash or wounds Neurologic Neurologic: Reports headache(s); Denies paresthesias or weakness EXAM Physical Exam Const Vital Signs: 04/07/23 15:21 04/07/23 15:26 Temperature 96.8 F L Temperature Source Temporal Pulse Rate 86 Respiratory Rate 16 Respiratory Effort Normal Respiratory Depth Normal Respiratory Pattern Normal Blood Pressure 181/56 H Blood Pressure Mean 97 Pulse Ox 93 Oxygen Delivery Method Room Air Positive well nourished and well developed Constitutional Narrative: G CS 15. General Appearance ED: well developed and NAD HEENT Reports moist mucous membranes normocephalic and atraumatic Eyes PERRL, EOMs intact bilaterally and conjunctivae normal General Eye ED: Yes normal appearance of both eyes Neck no lymphadenopathy and supple Neck Narrative: C-collar. Mild midline neck pain. General: Negative for tenderness Chest Wall Chest Narrative: Midsternal tenderness, no ecchymosis. No crepitus. Chest: tenderness Resp normal respiratory effort and normal air movement Resp Narrative: Symmetric breath sounds Effort and Inspection: symmetric chest movement; Negative for respiratory distress Cardio regular rate, regular rhythm and no murmurs Peripheral Pulses: pulses 2+ throughout GI normal (more content not included)... [facility] Spine Cervical without Contr ason 04-07-2023 Spine Cervical without Contras [facility] [address] [place] [address] Spine Cervical without Contras MR#: [id number] Acct: [id number] Name: BERTA SANCHES Rep #: [id number] : 1945 F 77 From: Giacomo dubois MD PCP: Dr. Mars Hernandez MD Status: REG ER Study: Spine Cervical without Contras Date of Exam: Exam# [id number] Ordering Dr: Dominguez Gonzales DO [id number] INDICATION: neck injury EXAMINATION: CT CERVICAL SPINE - CT Spine Cervical W/O Contrast Injection TECHNIQUE: Helically acquired images were obtained of the cervical spine. 2D reformatted images were reviewed. A radiation dose optimization technique was used for this scan. IV Contrast dosage and agent: None. RADIATION DOSAGE (If Supplied By Facility): CTDIvol = ( 22.92 ) mGy, DLP = ( 496.56 ) mGycm COMPARISON: No relevant prior comparison study available FINDINGS: VERTEBRAE: No fracture or traumatic subluxation. No discrete lytic or blastic abnormality. Normal alignment. Normal craniocervical junction and cervicothoracic junction. DISCS and SPINAL CANAL: There is multilevel disc space narrowing with endplate osteophyte formation and facet arthropathy. Bony fusion of the C2-C3 facets bilaterally. No critical stenosis. NECK SOFT TISSUES: No prevertebral soft tissue swelling. There is no cervical adenopathy. Diffuse vascular calcification. LUNG APICES: Clear. CT/Spine Cervical without Contras IMPRESSION: No evidence of acute cervical spinal fracture or spondylolisthesis. Mild multilevel degenerative change. Electronically Signed: Giacomo Michael MD at 16:24 EDT , CC: Dr. Dominguez Gonzales DO; Dr. aMrs Hernandez MD Corporation Officer: Signed [facility] No Panel Informationon 03-28 BLANK _ [facility] Implant Date 10/21/2020 [facility] PACEMAKER REMOTE CHECKon AV Delay Adaptive Paced Minimum (ms) 180 ms [facility] AV Delay Adaptive Sensed Minimum (ms) 150 ms [facility] AV Delay Adaptive Status DISABLED [facility] Battery Voltage (volts) 3.02 V [facility] Pavan RA Pacing Amplitude (volts) 1.5 V [facility] Pavan RA Pacing Polarity BI [facility] Pavan RA Pacing Pulse Width (ms) 0.4 ms [facility] Pavan RA Sensing Amplitude (mvolts) 0.3 mV [facility] Pavan RA Sensing Blanking Period (ms) 150 ms [facility] Pavan RA Sensing Polarity BI [facility] Pavan RA Sensing Refractory Period (ms) Auto [facility] Pavan RV Pacing Amplitude (volts) 2 V [facility] Pavan RV Pacing Polarity BI [facility] Pavan RV Pacing Pulse Width (ms) 0.4 ms [facility] Pavan RV Sensing Amplitude (mvolts) 0.9 mV [facility] Pavan RV Sensing Blanking Period (ms) 200 ms [facility] Pavan RV Sensing Polarity BI [facility] Hysteresis Rate (bpm) DISABLED [facility] Lead1 Karlg BRANDEE [facility] Lead2 Jose IRVIN [facility] Location RV [facility] Location RA [facility] Lower Rate (bpm) 60 {beats}/min [facility] Max Sensor Rate (bmp) 120 {beats}/min [facility] Model [id number] [place] XT DR MRI Cl [facility] Model 3830 SelectSecure MR I SureScan [facility] Model 5076 CapSureFix Novus [facility] PM-Device Mfg MDT [facility] PM-Percent Pacing (A) 96.66 % [facility] PM-Percent Pacing (V) 1.41 % [facility] PM-PMT Intervention ENABLED [facility] PM-PVC Intervention ENABLED [facility] PM-Rate Modulation Acceleration Reaction 30 s [facility] PM-Rate Modulation ADL Rate (bpm) 95 {beats}/min [facility] PM-Rate Modulation Deceleration Exercise [facility] PM-Rate Modulation [place] 3 [facility] PM-Rate Modulation Threshold Low [facility] RA Bipolar Impedance ohms 475 ohm [facility] RA Unipolar Impedance ohms 304 ohm [facility] RV Bipolar Impedance ohms 437 ohm [facility] RV Unipolar Impedance 342 ohm [facility] Serial Number [id number] [facility] Serial Number [id number] [facility] Serial Number [id number] [facility] Thresh RA Capture Amplitude (volts) 0.75 V [facility] Thresh RA Capture Duration (ms) 0.4 ms [facility] Thresh RA Sensing Amplitude (mvolts) 0.75 mV [facility] Thresh RV Capture Amplitude (volts) 1 V [facility] Thresh RV Capture Duration (ms) 0.4 ms [facility] Thresh RV Sensing Amplitude (mvolts) 12.375 mV [facility] Tracking Rate (bpm) 120 {beats}/min [facility] No Panel Informationon 12-29 BLANK _ [facility] Implant Date 10/21/2020 [facility] PACEMAKER REMOTE CHECKon AV Delay Adaptive Paced Minimum (ms) 180 ms [facility] AV Delay Adaptive Sensed Minimum (ms) 150 ms [facility] AV Delay Adaptive Status DISABLED [facility] Battery Voltage (volts) 3.02 V [facility] Pavan RA Pacing Amplitude (volts) 1.5 V [facility] Pavan RA Pacing Polarity BI [facility] Pavan RA Pacing Pulse Width (ms) 0.4 ms [facility] Pavan RA Sensing Amplitude (mvolts) 0.3 mV [facility] Pavan RA Sensing Blanking Period (ms) 150 ms [facility] Pavan RA Sensing Polarity BI [facility] Pavan RA Sensing Refractory Period (ms) Auto [facility] Pavan RV Pacing Amplitude (volts) 2 V [facility] Pavan RV Pacing Polarity BI [facility] Pavan RV Pacing Pulse Width (ms) 0.4 ms [facility] Pavan RV Sensing Amplitude (mvolts) 0.9 mV [facility] Pavan RV Sensing Blanking Period (ms) 200 ms [facility] Pavan RV Sensing Polarity BI [facility] Hysteresis Rate (bpm) DISABLED [facility] Lead1 Mfg MDT [facility] Lead2 Mfg MDT [facility] Location RV [facility] Location RA [facility] Lower Rate (bpm) 60 {beats}/min [facility] Max Sensor Rate (bmp) 120 {beats}/min [facility] Model [id number] [place] XT DR MRI Cl [facility] Model 3830 SelectSecure MR I SureScan [facility] Model 5076 CapSureFix Novus [facility] PM-Device Mfg MDT [facility] PM-Percent Pacing (A) 79.14 % [facility] PM-Percent Pacing (V) 5.48 % [facility] PM-PMT Intervention ENABLED [facility] PM-PVC Intervention ENABLED [facility] PM-Rate Modulation Acceleration Reaction 30 s [facility] PM-Rate Modulation ADL Rate (bpm) 95 {beats}/min [facility] PM-Rate Modulation Deceleration Exercise [facility] PM-Rate Modulation [place] 3 [facility] PM-Rate Modulation Threshold Low [facility] RA Bipolar Impedance ohms 437 ohm [facility] RA Unipolar Impedance ohms 304 ohm [facility] RV Bipolar Impedance ohms 437 ohm [facility] RV Unipolar Impedance 342 ohm [facility] Serial Number [id number] [facility] Serial Number [id number] [facility] Serial Number [id number] [facility] Thresh RA Capture Amplitude (volts) 0.625 V [facility] Thresh RA Capture Duration (ms) 0.4 ms [facility] Thresh RA Sensing Amplitude (mvolts) 0.875 mV [facility] Thresh RV Capture Amplitude (volts) 1 V [facility] Thresh RV Capture Duration (ms) 0.4 ms [facility] Thresh RV Sensing Amplitude (mvolts) 10.75 mV [facility] Tracking Rate (bpm) 120 {beats}/min [facility] MRA BRAIN WO/W IVCONon 12-10 MRA BRAIN WO/W IVCON * * *Final Report* * * DATE OF EXAM: Dec 10 2022 1:14PM MARCIAL 0273 - MRA BRAIN WO/W IVCON / PROCEDURE REASON: multiple diagnoses * * * * Physician Interpretation * * * * EXAMINATION: MRA BRAIN WO/W IVCON CLINICAL HISTORY: Nonruptured acom aneurysm follow-up. TECHNIQUE: Short TR short TE SPGR through the hab[place] of [place] after contrast. Intracranial 3D [id number] MRA with post-processing performed at the modality and 2D multiplanar and 3D maximum intensity projections were created, reviewed and archived. Contrast: 14 mL Dotarem IV MQ: [id number]_4 COMPARISON: Noncontrast CT brain from 03/23/2019. Intracranial MRA without and with contrast from 03/04/2018. RESULT: BRAIN: Limited images the brain parenchyma are normal. There is no hydrocephalus, midline shift or herniation. No significant volume loss or white matter changes. 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 On precontrast images no definite flow associated with the coiled ACOM aneurysm or left A1 stent. Carotid siphons show mild irregularity consistent with atherosclerotic changes but no additional aneurysm or hemodynamically significant stenoses identified. Right A1 segment and ACAs distal to the a calm aneurysm are normal in appearance. The middle cerebral arteries are also normal in caliber without evidence for focal stenosis. Intracranial vertebral arteries are patent and codominant. Basilar artery and posterior cerebral arteries are normal in caliber. Postcontrast images corroborate these findings. No contrast enhancement associated with the ACOM aneurysm coils to suggest residual flow into the aneurysm. 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 No additional intracranial aneurysms identified. Corporation Officer: [facility] Transcribe Date/Time: Dec 10 2022 1:31P Dictated by : TYE REN MD This examination was interpreted and the report reviewed and electronically signed by: TYE REN MD on Dec 10 2022 1:38PM EST [id number] Normal [facility] KIDNEY/BLADDERon 10-07-19 Radiology Result ACTIONABLE Abnormal [facility] No Panel Informationon 09-27 BLANK _ [facility] Implant Date 10/21/2020 [facility] PACEMAKER REMOTE CHECKon AV Delay Adaptive Paced Minimum (ms) 180 ms [facility] AV Delay Adaptive Sensed Minimum (ms) 150 ms [facility] AV Delay Adaptive Status DISABLED [facility] Battery Voltage (volts) 3.02 V [facility] Pavan RA Pacing Amplitude (volts) 1.5 V [facility] Pavan RA Pacing Polarity BI [facility] Pavan RA Pacing Pulse Width (ms) 0.4 ms [facility] Pavan RA Sensing Amplitude (mvolts) 0.3 mV [facility] Pavan RA Sensing Blanking Period (ms) 150 ms [facility] Pavan RA Sensing Polarity BI [facility] Pavan RA Sensing Refractory Period (ms) Auto [facility] Pavan RV Pacing Amplitude (volts) 2 V [facility] Pavan RV Pacing Polarity BI [facility] Pavan RV Pacing Pulse Width (ms) 0.4 ms [facility] Pavan RV Sensing Amplitude (mvolts) 0.9 mV [facility] Pavan RV Sensing Blanking Period (ms) 200 ms [facility] Pavan RV Sensing Polarity BI [facility] Hysteresis Rate (bpm) DISABLED [facility] Lead1 Mfg MDT [facility] Lead2 Mfg MDT [facility] Location RV [facility] Location RA [facility] Lower Rate (bpm) 60 {beats}/min [facility] Max Sensor Rate (bmp) 120 {beats}/min [facility] Model [id number] [place] XT DR MRI Cl [facility] Model 3830 SelectSecure MR I SureScan [facility] Model 5076 CapSureFix Novus [facility] PM-Device Mfg MDT [facility] PM-Percent Pacing (A) 46.27 % [facility] PM-Percent Pacing (V) 11.47 % [facility] PM-PMT Intervention ENABLED [facility] PM-PVC Intervention ENABLED [facility] PM-Rate Modulation Acceleration Reaction 30 s [facility] PM-Rate Modulation ADL Rate (bpm) 95 {beats}/min [facility] PM-Rate Modulation Deceleration Exercise [facility] PM-Rate Modulation [place] 3 [facility] PM-Rate Modulation Threshold Low [facility] RA Bipolar Impedance ohms 494 ohm [facility] RA Unipolar Impedance ohms 285 ohm [facility] RV Bipolar Impedance ohms 437 ohm [facility] RV Unipolar Impedance 323 ohm [facility] Serial Number [id number] [facility] Serial Number [id number] [facility] Serial Number [id number] [facility] Thresh RA Capture Amplitude (volts) 0.5 V [facility] [facility] Capture Duration (ms) 0.4 ms [facility] Thresh RA Sensing Amplitude (mvolts) 0.5 mV [facility] Thresh RV Capture Amplitude (volts) 1 V [facility] Thresh RV Capture Duration (ms) 0.4 ms [facility] Thresh RV Sensing Amplitude (mvolts) 13.375 mV [facility] Tracking Rate (bpm) 120 {beats}/min [facility] No Panel Informationon 06-30 BLANK _ [facility] Implant Date 10/21/2020 [facility] PACEMAKER REMOTE CHECKon AV Delay Adaptive Paced Minimum (ms) 180 ms [facility] AV Delay Adaptive Sensed Minimum (ms) 150 ms [facility] AV Delay Adaptive Status DISABLED [facility] Battery Voltage (volts) 3.03 V [facility] Pavan RA Pacing Amplitude (volts) 1.5 V [facility] Pavan RA Pacing Polarity BI [facility] Pavan RA Pacing Pulse Width (ms) 0.4 ms [facility] Pavan RA Sensing Amplitude (mvolts) 0.3 mV [facility] Pavan RA Sensing Blanking Period (ms) 150 ms [facility] Pavan RA Sensing Polarity BI [facility] Pavan RA Sensing Refractory Period (ms) Auto [facility] Pavan RV Pacing Amplitude (volts) 2.5 V [facility] Pavan RV Pacing Polarity BI [facility] Pavan RV Pacing Pulse Width (ms) 0.4 ms [facility] Pavan RV Sensing Amplitude (mvolts) 0.9 mV [facility] Pavan RV Sensing Blanking Period (ms) 200 ms [facility] Pavan RV Sensing Polarity BI [facility] Hysteresis Rate (bpm) DISABLED [facility] Lead1 Mfg MDT [facility] Lead2 Mfg MDT [facility] Location RV [facility] Location RA [facility] Lower Rate (bpm) 60 {beats}/min [facility] Max Sensor Rate (bmp) 120 {beats}/min [facility] Model [id number] [place] XT DR MRI [facility] Model 3830 SelectSecure MR I SureManish [facility] Model 5076 CapSureFix Novus [facility] PM-Device Mfg MDT [facility] PM-Percent Pacing (A) 53.59 % [facility] PM-Percent Pacing (V) 11.72 % [facility] PM-PMT Intervention ENABLED [facility] PM-PVC Intervention ENABLED [facility] PM-Rate Modulation Acceleration Reaction 30 s [facility] PM-Rate Modulation ADL Rate (bpm) 95 {beats}/min [facility] PM-Rate Modulation Deceleration Exercise [facility] PM-Rate Modulation [place] 3 [facility] PM-Rate Modulation Threshold Low [facility] RA Bipolar Impedance ohms 456 ohm [facility] RA Unipolar Impedance ohms 304 ohm [facility] RV Bipolar Impedance ohms 437 ohm [facility] RV Unipolar Impedance 323 ohm [facility] Serial Number [id number] [facility] Serial Number [id number] [facility] Serial Number [id number] [facility] Thresh RA Capture Amplitude (volts) 0.5 V [facility] Thresh RA Capture Duration (ms) 0.4 ms [facility] Thresh RA Sensing Amplitude (mvolts) 0.375 mV [facility] Thresh RV Capture Amplitude (volts) 1.125 V [facility] Thresh RV Capture Duration (ms) 0.4 ms [facility] Thresh RV Sensing Amplitude (mvolts) 9.25 mV [facility] Tracking Rate (bpm) 120 {beats}/min [facility] UA DIP, URINE (POC)on 2021 BILIRUBIN UA (POCT) Negative Negative [facility] CLARITY UA (POCT) Clear [facility] COLOR UA (POCT) Yellow [facility] GLUCOSE UA (POCT) Negative Negative mg/dL [facility] HEMOGLOBIN/BLOOD UA (POCT) Negative Negative [facility] KETONE UA (POCT) Negative Negative mg/dL [facility] LEUKOCYTES UA (POCT) Negative Negative [facility] NITRITE UA (POCT) Negative Negative [facility] PH UA (POCT) 5.5 4.5 - 8.0 [facility] Protein Ql (U) 30 mg/dL Abnormal Negative mg/dL [facility] SPECIFIC GRAVITY UA (POCT) 1.020 1.005 - 1.030 [facility] UROBILINOGEN UA (POCT) 0.2 E.U./dL Cat l E.U./dL [facility] CBC W Auto Differential pane l (Bld)on 04-06-2022 Abs Immature Gran 0.03 k/uL <0.10 k/uL [facility] Basophils (Bld) [#/Vol] 0.08 10*3/uL <0.11 k/uL [facility] Basophils/100 WBC (Bld) 1.1 % [facility] Differential cell count method Nom (Bld) Auto [facility] Eosinophils (Bld) [#/Vol] 0.11 10*3/uL <0.46 k/uL [facility] Eosinophils/100 WBC (Bld) 1.5 % [facility] Erythrocyte distribution width (RBC) [Ratio] 19.9 % High 11.5 - 15.0 % [facility] Hematocrit (Bld) [Volume fraction] 31.3 % Low 36.0 - 46.0 % [facility] Hemoglobin (Bld) [Mass/Vol] 9.2 g/dL Low 11.5 - 15.5 g/dL [facility] Immature Gran % 0.4 % [facility] Lymphocytes (Bld) [#/Vol] 2.05 10*3/uL 1.00 - 4.00 k/uL [facility] Lymphocytes/100 WBC (Bld) 27.9 % [facility] MCH (RBC) [Entitic mass] 24.5 pg Low 26.0 - 34.0 pg [facility] MCHC (RBC) [Mass/Vol] 29.4 g/dL Low 30.5 - 36.0 g/dL [facility] MCV (RBC) [Entitic vol] 83.5 fL 80.0 - 100.0 fL [facility] Monocytes (Bld) [#/Vol] 0.93 10*3/uL High <0.87 k/uL [facility] Monocytes/100 WBC (Bld) 12.7 % [facility] Neutrophils (Bld) [#/Vol] 4.14 10*3/uL 1.45 - 7.50 k/uL [facility] Neutrophils/100 WBC (Bld) 56.4 % [facility] Nucleated RBC (Bld) [#/Vol] <0.01 k/uL [facility] Nucleated RBC/100 WBC (Bld) [Ratio] 0.0 /100 WBC [facility] Platelet mean volume (Bld) [Entitic vol] 9.8 fL 9.0 - 12.7 fL [facility] Platelets (Bld) [#/Vol] 266 10*3/uL 150 - 400 k/uL [facility] RBC (Bld) [#/Vol] 3.75 10*6/uL Low 3.90 - 5.2 0 m/uL [facility] WBC (Bld) [#/Vol] 7.34 10*3/uL 3.70 - 11. 00 k/uL [facility] FERRITIN BLDon 04-06-2022 Ferritin [Mass/Vol] 27.1 ng/mL 14.7 - 2 05.1 ng/mL [facility] Iron and Iron binding capaci ty panelon 04-06-2022 Iron [Mass/Vol] 26 ug/dL Low 41 - 186 ug/dL [facility] Iron binding capacity [Mass/Vol] 454 ug/dL High 232 - 386 ug/dL [facility] Iron/TIBC [Molar ratio] 5.7 % Low 15.0 - 57.0 % [facility] No Panel Informationon 03-28 BLANK _ [facility] Implant Date 10/21/2020 [facility] PACEMAKER REMOTE CHECKon AV Delay Adaptive Paced Minimum (ms) 180 ms [facility] AV Delay Adaptive Sensed Minimum (ms) 150 ms [facility] AV Delay Adaptive Status DISABLED [facility] Battery Voltage (volts) 3.03 V [facility] Pavan RA Pacing Amplitude (volts) 1.5 V [facility] Pavan RA Pacing Polarity BI [facility] Pavan RA Pacing Pulse Width (ms) 0.4 ms [facility] Pavan RA Sensing Amplitude (mvolts) 0.3 mV [facility] Pavan RA Sensing Blanking Period (ms) 150 ms [facility] Pavan RA Sensing Polarity BI [facility] Pavan RA Sensing Refractory Period (ms) Auto [facility] Pavan RV Pacing Amplitude (volts) 2 V [facility] Pavan RV Pacing Polarity BI [facility] Pavan RV Pacing Pulse Width (ms) 0.4 ms [facility] Pavan RV Sensing Amplitude (mvolts) 0.9 mV [facility] Pavan RV Sensing Blanking Period (ms) 200 ms [facility] Pavan RV Sensing Polarity BI [facility] Hysteresis Rate (bpm) DISABLED [facility] Lead1 Mfg T [facility] Lead2 Karlg BRANDEE [facility] Location RV [facility] Location RA [facility] Lower Rate (bpm) 60 {beats}/min [facility] Max Sensor Rate (bmp) 120 {beats}/min [facility] Model [id number] [place] XT DR MRI Cl [facility] Model 3830 SelectSecure MR I SureScan [facility] Model 5076 CapSureFix Novus [facility] PM-Device Mfg MDT [facility] PM-Percent Pacing (A) 13.82 % [facility] PM-Percent Pacing (V) 9.69 % [facility] PM-PMT Intervention ENABLED [facility] PM-PVC Intervention ENABLED [facility] PM-Rate Modulation Acceleration Reaction 30 s [facility] PM-Rate Modulation ADL Rate (bpm) 95 {beats}/min [facility] PM-Rate Modulation Deceleration Exercise [facility] PM-Rate Modulation [place] 3 [facility] PM-Rate Modulation Threshold Low [facility] RA Bipolar Impedance ohms 437 ohm [facility] RA Unipolar Impedance ohms 285 ohm [facility] RV Bipolar Impedance ohms 418 ohm [facility] RV Unipolar Impedance 323 ohm [facility] Serial Number [id number] [facility] Serial Number [id number] [facility] Serial Number [id number] [facility] Thresh RA Capture Amplitude (volts) 0.75 V [facility] Thresh RA Capture Duration (ms) 0.4 ms [facility] Thresh RA Sensing Amplitude (mvolts) 0.25 mV [facility] Thresh RV Capture Amplitude (volts) 1 V [facility] Thresh RV Capture Duration (ms) 0.4 ms [facility] Thresh RV Sensing Amplitude (mvolts) 13.375 mV [facility] Tracking Rate (bpm) 120 {beats}/min [facility] ECHO TRANSESOPHAGEALon 03-03 [facility] No Panel Informationon 03-03 BLANK _ [facility] Implant Date 10/21/2020 [facility] PACEMAKER CLINIC CHECKon AV Delay Adaptive Paced Minimum (ms) 180 ms [facility] AV Delay Adaptive Sensed Minimum (ms) 150 ms [facility] AV Delay Adaptive Status DISABLED [facility] Battery Voltage (volts) 3.03 V [facility] Pavan RA Pacing Amplitude (volts) 1.5 V [facility] Pavan RA Pacing Polarity BI [facility] Pavan RA Pacing Pulse Width (ms) 0.4 ms [facility] Pavan RA Sensing Amplitude (mvolts) 0.3 mV [facility] Pavan RA Sensing Blanking Period (ms) 150 ms [facility] Pavan RA Sensing Polarity BI [facility] Pavan RA Sensing Refractory Period (ms) Auto [facility] Pavan RV Pacing Amplitude (volts) 2 V [facility] Pavan RV Pacing Polarity BI [facility] Pavan RV Pacing Pulse Width (ms) 0.4 ms [facility] Pavan RV Sensing Amplitude (mvolts) 0.9 mV [facility] Pavan RV Sensing Blanking Period (ms) 200 ms [facility] Pavan RV Sensing Polarity BI [facility] Hysteresis Rate (bpm) DISABLED [facility] Lead1 Mfg MDT [facility] Lead2 Mfg MDT [facility] Location RV [facility] Location RA [facility] Lower Rate (bpm) 60 {beats}/min [facility] Max Sensor Rate (bmp) 120 {beats}/min [facility] Model [id number] [place] XT DR MRI Cl [facility] Model 3830 SelectSecure MR I SureScan [facility] Model 5076 CapSureFix Novus [facility] Pacemaker Dependent? NO [facility] PM-Device Karlg MDT [facility] PM-Percent Pacing (A) 3.4 % [facility] PM-Percent Pacing (V) 14.6 % [facility] PM-PMT Intervention ENABLED [facility] PM-PVC Intervention ENABLED [facility] PM-Rate Modulation Acceleration Reaction 30 s [facility] PM-Rate Modulation ADL Rate (bpm) 95 {beats}/min [facility] PM-Rate Modulation Deceleration Exercise [facility] PM-Rate Modulation [place] 3 [facility] PM-Rate Modulation Threshold Low [facility] RA Bipolar Impedance ohms 456 ohm [facility] RA Unipolar Impedance ohms 285 ohm [facility] Rhythm Atrial Fibrillation [facility] RV Bipolar Impedance ohms 437 ohm [facility] RV Unipolar Impedance 342 ohm [facility] Serial Number [id number] [facility] Serial Number [id number] [facility] Serial Number [id number] [facility] Thresh RA Capture Amplitude (volts) 0.75 V [facility] Thresh RA Capture Duration (ms) 0.4 ms [facility] Thresh RA Sensing Amplitude (mvolts) 0.375 mV [facility] Thresh RV Capture Amplitude (volts) 0.875 V [facility] Thresh RV Capture Duration (ms) 0.4 ms [facility] Thresh RV Sensing Amplitude (mvolts) 12.75 mV [facility] Tracking Rate (bpm) 120 {beats}/min [facility] HEMOGLOBIN (HGB)on 2 Hemoglobin (Bld) [Mass/Vol] 8.1 g/dL Low 11.5 - 15.5 g/dL [facility] Hematocrit Auto (Bld) [Volum e fraction]on 02-20-2022 Hematocrit (Bld) [Volume fraction] 26.4 % Low 36.0 - 46.0 % [facility] No Panel Informationon 01-09 BLANK _ [facility] Implant Date 10/21/2020 [facility] PACEMAKER CLINIC CHECKon AV Delay Adaptive Paced Minimum (ms) 180 ms [facility] AV Delay Adaptive Sensed Minimum (ms) 150 ms [facility] AV Delay Adaptive Status DISABLED [facility] Battery Voltage (volts) 3.04 V [facility] Pavan RA Pacing Amplitude (volts) 1.5 V [facility] Pavan RA Pacing Polarity BI [facility] Pavan RA Pacing Pulse Width (ms) 0.4 ms [facility] Pavan RA Sensing Amplitude (mvolts) 0.3 mV [facility] Pavan RA Sensing Blanking Period (ms) 150 ms [facility] Pavan RA Sensing Polarity BI [facility] Pavan RA Sensing Refractory Period (ms) Auto [facility] Pavan RV Pacing Amplitude (volts) 2 V [facility] Pavan RV Pacing Polarity BI [facility] Pavan RV Pacing Pulse Width (ms) 0.4 ms [facility] Pavan RV Sensing Amplitude (mvolts) 0.9 mV [facility] Pavan RV Sensing Blanking Period (ms) 200 ms [facility] Pavan RV Sensing Polarity BI [facility] Hysteresis Rate (bpm) DISABLED [facility] Lead1 Mfg MDT [facility] Lead2 Mfg MDT [facility] Location RV [facility] Location RA [facility] Lower Rate (bpm) 60 {beats}/min [facility] Max Sensor Rate (bmp) 120 {beats}/min [facility] Model [id number] [place] XT DR MRI Cl [facility] Model 3830 SelectSecure MR I SureScan [facility] Model 5076 CapSureFix Novus [facility] Pacemaker Dependent? NO [facility] PM-Device Mfg T [facility] PM-Percent Pacing (A) 32.01 % [facility] PM-Percent Pacing (V) 13.19 % [facility] PM-PMT Intervention ENABLED [facility] PM-PVC Intervention ENABLED [facility] PM-Rate Modulation Acceleration Reaction 30 s [facility] PM-Rate Modulation ADL Rate (bpm) 95 {beats}/min [facility] PM-Rate Modulation Deceleration Exercise [facility] PM-Rate Modulation [place] 3 [facility] PM-Rate Modulation Threshold Low [facility] RA Bipolar Impedance ohms 456 ohm [facility] RA Unipolar Impedance ohms 285 ohm [facility] Rhythm Atrial Fibrillation [facility] RV Bipolar Impedance ohms 437 ohm [facility] RV Unipolar Impedance 342 ohm [facility] Serial Number [id number] [facility] Serial Number [id number] [facility] Serial Number [id number] [facility] Thresh RA Capture Amplitude (volts) 0.75 V [facility] Thresh RA Capture Duration (ms) 0.4 ms [facility] Thresh RA Sensing Amplitude (mvolts) 0.375 mV [facility] Thresh RV Capture Amplitude (volts) 1 V [facility] Thresh RV Capture Duration (ms) 0.4 ms [facility] Thresh RV Sensing Amplitude (mvolts) 13.6 mV [facility] Tracking Rate (bpm) 120 {beats}/min [facility] EGD DIAGNOSTICon 01-02-2022 [facility] CBC panel Auto (Bld)on 12-26 Erythrocyte distribution width (RBC) [Ratio] 16.8 % High 11.5 - 15.0 % [facility] Hematocrit (Bld) [Volume fraction] 28.2 % Low 36.0 - 46.0 % [facility] Hemoglobin (Bld) [Mass/Vol] 8.1 g/dL Low 11.5 - 15.5 g/dL [facility] MCH (RBC) [Entitic mass] 24.5 pg Low 26.0 - 34.0 pg [facility] MCHC (RBC) [Mass/Vol] 28.7 g/dL Low 30.5 - 36.0 g/dL [facility] MCV (RBC) [Entitic vol] 85.5 fL 80.0 - 100.0 fL [facility] Nucleated RBC (Bld) [#/Vol] 10*3/uL <0.01 k/uL [facility] Platelet mean volume (Bld) [Entitic vol] 10.3 fL 9.0 - 12.7 fL [facility] Platelets (Bld) [#/Vol] 248 10*3/uL 150 - 400 k/uL [facility] RBC (Bld) [#/Vol] 3.30 10*6/uL Low 3.90 - 5.2 0 m/uL [facility] WBC (Bld) [#/Vol] 10.54 10*3/uL 3.70 - 11 .00 k/uL [facility] CBC panel Auto (Bld)on 12-15 Erythrocyte distribution width (RBC) [Ratio] 15.7 % High 11.5 - 15.0 % [facility] Hematocrit (Bld) [Volume fraction] 31.0 % Low 36.0 - 46.0 % [facility] Hemoglobin (Bld) [Mass/Vol] 9.3 g/dL Low 11.5 - 15.5 g/dL [facility] MCH (RBC) [Entitic mass] 24.4 pg Low 26.0 - 34.0 pg [facility] MCHC (RBC) [Mass/Vol] 30.0 g/dL Low 30.5 - 36.0 g/dL [facility] MCV (RBC) [Entitic vol] 81.4 fL 80.0 - 100.0 fL [facility] Nucleated RBC (Bld) [#/Vol] 10*3/uL <0.01 k/uL [facility] Platelet mean volume (Bld) [Entitic vol] 10.0 fL 9.0 - 12.7 fL [facility] Platelets (Bld) [#/Vol] 273 10*3/uL 150 - 400 k/uL [facility] RBC (Bld) [#/Vol] 3.81 10*6/uL Low 3.90 - 5.2 0 m/uL [facility] WBC (Bld) [#/Vol] 9.78 10*3/uL 3.70 - 11. 00 k/uL [facility] HbA1c (Bld)on 12-15-2021 Average glucose Estimated from glycated hemoglobin (Bld) [Mass/Vol] 157 mg/dL [facility] HbA1c (Bld) [Mass fraction] 7.1 % High 4.3 - 5.6 % [facility] Lipid 1996 panelon 2 Cholesterol [Mass/Vol] 121 mg/dL <200 mg/dL [facility] Cholesterol in HDL [Mass/Vol] 43 mg/dL >39 mg/dL [facility] Cholesterol in LDL [Mass/Vol] 59 mg/dL <100 mg/dL [facility] Cholesterol in LDL/Cholesterol in HDL [Mass ratio] 1.37 {ratio} <2.54 [facility] Cholesterol in VLDL [Mass/Vol] 19 mg/dL <30 mg/dL [facility] Cholesterol non HDL [Mass/Vol] 78 mg/dL <130 mg/dL [facility] Cholesterol.total/Chol esterol in HDL [Mass ratio] 2.81 {ratio} <5.10 [facility] Fasting Time 12 hrs [facility] Triglyceride [Mass/Vol] 93 mg/dL <150 mg/dL [facility] XR HIP GENERAL 3V PELV/AP/LA T LEFTon 12-15-2021 [facility] XR Pelvis and Hip - left AP and Lateral frogon 12-15-2021 IMPRESSION: NEGATIVE HIP. Corporation Officer: PSCB Transcribe Date/Time: Dec 15 2021 12:36P Dictated by : JUAN MOSCOSO MD This examination was interpreted and the report reviewed and electronically signed by: JUAN MOSCOSO MD on Dec 15 2021 12:38PM EST [email or web address] _DIVISION OF RADIOLOGY * * *Final Report* * * DATE OF EXAM: Dec 15 2021 11:22AM WOX [id number] - XR HIP 3V PELV+ AP/LAT LT / PROCEDURE REASON: Ischial bursitis of left side * * * * Physician Interpretation * * * * EXAMINATION: XR HIP 3V PELV+ AP/LAT LT HISTORY: Posterior left hip pain x 3 weeks. Negative injury. Ischial bursitis of left side. TECHNIQUE: XR HIP 3V PELV+ AP/LAT LT Laterality: LEFT Number of different views (projections): 3 M: XB_1 COMPARISON: There are no prior relevant examinations available for comparison within the [facility] Imaging Archives. RESULT: Supine radiograph of the pelvis as well as AP and frogleg views of the left hip demonstrate the bony pelvic ring intact. The hips are bilaterally symmetric without fracture or dislocation. No acute bony process is noted. The soft tissues demonstrate aortoiliac calcification [email or web address] _DIVISION OF RADIOLOGY [facility]21 * * *Final Report* * * DATE OF EXAM: Dec 15 2021 11:22AM WOX [id number] - XR HIP 3V PELV+ AP/LAT LT / PROCEDURE REASON: Ischial bursitis of left side * * * * Physician Interpretation * * * * EXAMINATION: XR HIP 3V PELV+ AP/LAT LT HISTORY: Posterior left hip pain x 3 weeks. Negative injury. Ischial bursitis of left side. TECHNIQUE: XR HIP 3V PELV+ AP/LAT LT Laterality: LEFT Number of different views (projections): 3 M: XB_1 COMPARISON: There are no prior relevant examinations available for comparison within the [facility] Imaging Archives. RESULT: Supine radiograph of the pelvis as well as AP and frogleg views of the left hip demonstrate the bony pelvic ring intact. The hips are bilaterally symmetric without fracture or dislocation. No acute bony process is noted. The soft tissues demonstrate aortoiliac calcification IMPRESSION IMPRESSION: NEGATIVE HIP. Corporation Officer: PSCB Transcribe Date/Time: Dec 15 2021 12:36P Dictated by : JUAN MOSCOSO MD This examination was interpreted and the report reviewed and electronically signed by: JUAN MOSCOSO MD on Dec 15 2021 12:38PM EST [facility] Radiology Study observation (narrative) [facility] XR Pelvis and Hip - left AP and Lateral frogOrdered By: Ccf Provider on 12-15-2021 [facility] No Panel Informationon 12-13 BLANK _ [facility] Implant Date 10/21/2020 [facility] PACEMAKER REMOTE CHECKon AV Delay Adaptive Paced Minimum (ms) 180 ms [facility] AV Delay Adaptive Sensed Minimum (ms) 150 ms [facility] AV Delay Adaptive Status DISABLED [facility] Battery Voltage (volts) 3.04 V [facility] Pavan RA Pacing Amplitude (volts) 1.5 V [facility] Pavan RA Pacing Polarity BI [facility] Pavan RA Pacing Pulse Width (ms) 0.4 ms [facility] Pavan RA Sensing Amplitude (mvolts) 0.3 mV [facility] Pavan RA Sensing Blanking Period (ms) 150 ms [facility] Pavan RA Sensing Polarity BI [facility] Pavan RA Sensing Refractory Period (ms) Auto [facility] Pavan RV Pacing Amplitude (volts) 2 V [facility] Pavan RV Pacing Polarity BI [facility] Pavan RV Pacing Pulse Width (ms) 0.4 ms [facility] Pavan RV Sensing Amplitude (mvolts) 0.9 mV [facility] Pavan RV Sensing Blanking Period (ms) 200 ms [facility] Pavan RV Sensing Polarity BI [facility] Hysteresis Rate (bpm) DISABLED [facility] Lead1 Mfg MDT [facility] Lead2 Mfg MDT [facility] Location RV [facility] Location RA [facility] Lower Rate (bpm) 60 {beats}/min [facility] Max Sensor Rate (bmp) 120 {beats}/min [facility] Model [id number] Sania XT DR MRI Cl [facility] Model 3830 SelectSecure MR I SureScan [facility] Model 5076 CapSureFix Novus [facility] PM-Device Mfg MDT [facility] PM-Percent Pacing (A) 0.2 % [facility] PM-Percent Pacing (V) 19.48 % [facility] PM-PMT Intervention ENABLED [facility] PM-PVC Intervention ENABLED [facility] PM-Rate Modulation Acceleration Reaction 30 s [facility] PM-Rate Modulation ADL Rate (bpm) 95 {beats}/min [facility] PM-Rate Modulation Deceleration Exercise [facility] PM-Rate Modulation Butte 3 [facility] PM-Rate Modulation Threshold Low [facility] RA Bipolar Impedance ohms 475 ohm [facility] RA Unipolar Impedance ohms 285 ohm [facility] RV Bipolar Impedance ohms 418 ohm [facility] RV Unipolar Impedance 323 ohm [facility] Serial Number [id number] [facility] Serial Number [id number] [facility] Serial Number [id number] [facility] Thresh RA Capture Amplitude (volts) 0.75 V [facility] Thresh RA Capture Duration (ms) 0.4 ms [facility] Thresh RA Sensing Amplitude (mvolts) 0.5 mV [facility] Thresh RV Capture Amplitude (volts) 0.875 V [facility] Thresh RV Capture Duration (ms) 0.4 ms [facility] Thresh RV Sensing Amplitude (mvolts) 12.625 mV [facility] Tracking Rate (bpm) 120 {beats}/min [facility] No Panel Informationon 09-26 BLANK _ [facility] Implant Date 10/21/2020 [facility] PACEMAKER REMOTE CHECKon AV Delay Adaptive Paced Minimum (ms) 180 ms [facility] AV Delay Adaptive Sensed Minimum (ms) 150 ms [facility] AV Delay Adaptive Status DISABLED [facility] Battery Voltage (volts) 3.06 V [facility] Pavan RA Pacing Amplitude (volts) 1.5 V [facility] Pavan RA Pacing Polarity BI [facility] Pavan RA Pacing Pulse Width (ms) 0.4 ms [facility] Pavan RA Sensing Amplitude (mvolts) 0.3 mV [facility] Pavan RA Sensing Blanking Period (ms) 150 ms [facility] Pavan RA Sensing Polarity BI [facility] Pavan RA Sensing Refractory Period (ms) Auto [facility] Pavan RV Pacing Amplitude (volts) 2 V [facility] Pavan RV Pacing Polarity BI [facility] Pavan RV Pacing Pulse Width (ms) 0.4 ms [facility] Pavan RV Sensing Amplitude (mvolts) 0.9 mV [facility] Pavan RV Sensing Blanking Period (ms) 200 ms [facility] Pavan RV Sensing Polarity BI [facility] Hysteresis Rate (bpm) DISABLED [facility] Lead1 Mfg MDT [facility] Lead2 Mfg MDT [facility] Location RV [facility] Location RA [facility] Lower Rate (bpm) 60 {beats}/min [facility] Max Sensor Rate (bmp) 120 {beats}/min [facility] Model [id number] Sania XT DR MRI Cl [facility] Model 3830 SelectSecure MR I SureScan [facility] Model 5076 CapSureFix Novus [facility] PM-Device Mfg MDT [facility] PM-Percent Pacing (A) 0.09 % [facility] PM-Percent Pacing (V) 23.44 % [facility] PM-PMT Intervention ENABLED [facility] PM-PVC Intervention ENABLED [facility] PM-Rate Modulation Acceleration Reaction 30 s [facility] PM-Rate Modulation ADL Rate (bpm) 95 {beats}/min [facility] PM-Rate Modulation Deceleration Exercise [facility] PM-Rate Modulation Butte 3 [facility] PM-Rate Modulation Threshold Low [facility] RA Bipolar Impedance ohms 532 ohm [facility] RA Unipolar Impedance ohms 304 ohm [facility] RV Bipolar Impedance ohms 418 ohm [facility] RV Unipolar Impedance 342 ohm [facility] Serial Number [id number] [facility] Serial Number [id number] [facility] Serial Number [id number] [facility] Thresh RA Capture Amplitude (volts) 0.75 V [facility] Thresh RA Capture Duration (ms) 0.4 ms [facility] Thresh RA Sensing Amplitude (mvolts) 0.625 mV [facility] Thresh RV Capture Amplitude (volts) 0.875 V [facility] Thresh RV Capture Duration (ms) 0.4 ms [facility] Thresh RV Sensing Amplitude (mvolts) 12 mV [facility] Tracking Rate (bpm) 120 {beats}/min [facility] PROGRESSon 03-08-2019 PROGRESS HNO ID: [id number] Author: Sheree Logan (Rt) Manolo Elaine Service: Radiology Author Type: [employer] Type: Progress Notes Filed: 03/08/2019 2:55 PM Note Text: Radiology Service Progress Note PATIENT NAME: Berta Sanches DATE OF SERVICE: March 08, 2019 TIME: 2:55 PM PATIENT IDENTITY VERIFICATION COMPLETED USING TWO (2) METHODS: Name and Date of confirmed by patient verbally. PATIENT GENDER DATA: Female. status: : No status: NO. PATIENT RELEVANT IMPLANT DATA REVIEWED: Not Applicable RADIOLOGY DEPARTMENT: General X-ray: Exam(s) Completed: Chest X-Ray PERIPHERAL IV DATA: Not applicable SIGNED BY: RT Echo March 08, 2019 2:55 PM [facility] XR CHEST 2V FRONTAL/LATon XR CHEST 2V FRONTAL/LAT * * *Final Report* * * DATE OF EXAM: Mar 08 2019 2:57PM VHX [id number] - XR CHEST 2V FRONTAL/LAT / PROCEDURE REASON: Paroxysmal atrial fibrillation (HCC) * * * * Physician Interpretation * * * * EXAMINATION: CHEST RADIOGRAPH (2 VIEW FRONTAL and LATERAL) CLINICAL HISTORY: Paroxysmal atrial fibrillation (HCC) MQ: XC2_5 Comparison: 2016 RESULT: Cardiomegaly. DJD. Poor inspiration producing crowded lung markings.. COPD. Prominent derrick secondary pulmonary vascular prominence. Chronic interstitial changes rosas. IMPRESSION: COPD. Chronic interstitial disease. Possible 5 mm nodule right lung base. 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 However, the mobile MRI scanner was not capable of performing the needed MR angiographic sequences. All charges related to the examination was canceled. IMPRESSION: Nondiagnostic MRA study as noted with all charges canceled. The study is to be rescheduled at [facility] [address] [facility] Vital Signs Date Time Vital Sign Value Performing Clinician Jabari rogers 01-01-2025 10:290400 Body height 157.5 cm Carla Burdick MD Work Phone: [facility] 01-01-2025 10:29-0400 Body mass index (BMI) [Ratio] 27.18 kg/m2 Carla Burdick MD Work Phone: [facility] 01-01-2025 10:29-0400 Body weight 67.41 kg Carla Burdick MD Work Phone: [facility] 01-01-2025 10:29-0400 Diastolic blood pressure 60 mm[Hg] Carla Burdick MD Work Phone: [facility] 01-01-2025 10:29-0400 Heart rate 84 /min Carla Burdick MD Work Phone: [facility] 01-01-2025 10:29-0400 Respiratory rate 18 /min Carla Burdick MD Work Phone: [facility] 01-01-2025 10:29-0400 SaO2% (BldA) [Mass fraction] 100 % Carla Burdick MD Work Phone: [facility] 01-01-2025 10:29-0400 Systolic blood pressure 156 mm[Hg] Carla Burdick MD Work Phone: [facility] 12-20-2024 08:29-0400 Body mass index (BMI) [Ratio] 27.18 kg/m2 Lars Silva DO Work Phone: [facility] 12-20-2024 08:29-0400 Body weight 67.4 kg Lars Silva DO Work Phone: [facility] 12-20-2024 08:29-0400 Diastolic blood pressure 75 mm[Hg] Lars Silva DO Work Phone: [facility] 12-20-2024 08:29-0400 Heart rate 77 /min Lars Silva DO Work Phone: [facility] 12-20-2024 08:29-0400 SaO2% (BldA) [Mass fraction] 100 % Lars Silva DO Work Phone: [facility] 12-20-2024 08:29-0400 Systolic blood pressure 154 mm[Hg] Lars Silva DO Work Phone: [facility] 12-19-2024 11:38-0400 Diastolic blood pressure 54 mm[Hg] Albin Aurin VOLUNTEER SERVICES ASSISTANT.SIGN BOARD ERECTOR Work Phone: [facility] Comment on above: post IV lasix 12-19-2024 11:38-0400 Systolic blood pressure 157 mm[Hg] Albin Aurin VOLUNTEER SERVICES ASSISTANT.SIGN BOARD ERECTOR Work Phone: [facility] Comment on above: post IV lasix 12-19-2024 10:56-0400 Body mass index (BMI) [Ratio] 26.34 kg/m2 Albin Aurin VOLUNTEER SERVICES ASSISTANT.SIGN BOARD ERECTOR Work Phone: [facility] 12-19-2024 10:56-0400 Body weight 65.32 kg Albin Aurin VOLUNTEER SERVICES ASSISTANT.SIGN BOARD ERECTOR Work Phone: [facility] 12-19-2024 10:56-0400 Heart rate 79 /min Albin Aurin VOLUNTEER SERVICES ASSISTANT.SIGN BOARD ERECTOR Work Phone: [facility] 12-19-2024 10:56-0400 SaO2% (BldA) [Mass fraction] 99 % Albin Aurin VOLUNTEER SERVICES ASSISTANT.SIGN BOARD ERECTOR Work Phone: [facility] 11-20-2024 08:06-0400 Body height 157.5 cm Carla Burdick MD Work Phone: [facility] 11-20-2024 08:06-0400 Body mass index (BMI) [Ratio] 26.3 kg/m2 Carla Burdick MD Work Phone: [facility] 11-20-2024 08:06-0400 Body weight 65.23 kg Carla Burdick MD Work Phone: [facility] 11-20-2024 08:06-0400 Diastolic blood pressure 62 mm[Hg] Carla Burdick MD Work Phone: [facility] 11-20-2024 08:06-0400 Heart rate 84 /min Carla Burdick MD Work Phone: [facility] 11-20-2024 08:06-0400 Respiratory rate 12 /min Carla Burdick MD Work Phone: [facility] 11-20-2024 08:06-0400 SaO2% (BldA) [Mass fraction] 99 % Carla Burdick MD Work Phone: [facility] 11-20-2024 08:06-0400 Systolic blood pressure 154 mm[Hg] Carla Burdick MD Work Phone: [facility] 11-06-2024 15:03-0400 Body height 157.5 cm Carla Burdick MD Work Phone: [facility] 11-06-2024 15:03-0400 Body mass index (BMI) [Ratio] 27.8 kg/m2 Carla Burdick MD Work Phone: [facility] 11-06-2024 15:03-0400 Body weight 68.95 kg Carla Burdick MD Work Phone: [facility] 11-06-2024 15:03-0400 Diastolic blood pressure 54 mm[Hg] Carla Burdick MD Work Phone: [facility] 11-06-2024 15:03-0400 Heart rate 68 /min Carla Burdick MD Work Phone: [facility] 11-06-2024 15:03-0400 Respiratory rate 12 /min Carla Burdick MD Work Phone: [facility] 11-06-2024 15:03-0400 SaO2% (BldA) [Mass fraction] 100 % Carla Burdick MD Work Phone: [facility] 11-06-2024 15:03-0400 Systolic blood pressure 134 mm[Hg] Carla Burdick MD Work Phone: [facility] 11-03-2024 10:06-0400 Diastolic blood pressure 44 mm[Hg] Albin Aurin VOLUNTEER SERVICES ASSISTANT.SIGN BOARD ERECTOR Work Phone: [facility] 11-03-2024 10:06-0400 Systolic blood pressure 121 mm[Hg] Albin Aurin VOLUNTEER SERVICES ASSISTANT.SIGN BOARD ERECTOR Work Phone: [facility] 11-03-2024 08:56-0400 Body mass index (BMI) [Ratio] 26.89 kg/m2 Albin Aurin VOLUNTEER SERVICES ASSISTANT.SIGN BOARD ERECTOR Work Phone: [facility] 11-03-2024 08:56-0400 Body weight 66.68 kg Albin Aurin VOLUNTEER SERVICES ASSISTANT.SIGN BOARD ERECTOR Work Phone: [facility] 11-03-2024 08:56-0400 Heart rate 66 /min Albin Aurin VOLUNTEER SERVICES ASSISTANT.SIGN BOARD ERECTOR Work Phone: [facility] 11-03-2024 08:56-0400 SaO2% (BldA) [Mass fraction] 100 % Albin Aurin VOLUNTEER SERVICES ASSISTANT.SIGN BOARD ERECTOR Work Phone: [facility] 10-31-2024 11:09-0400 Body mass index (BMI) [Ratio] 25.97 kg/m2 Shaye Domingo VOLUNTEER SERVICES ASSISTANT.SIGN BOARD ERECTOR Work Phone: [facility] 10-31-2024 11:09-0400 Body weight 64.41 kg Shaye Domingo VOLUNTEER SERVICES ASSISTANT.SIGN BOARD ERECTOR Work Phone: [facility] 10-31-2024 11:09-0400 Diastolic blood pressure 68 mm[Hg] Shaye Domingo VOLUNTEER SERVICES ASSISTANT.SIGN BOARD ERECTOR Work Phone: [facility] 10-31-2024 11:09-0400 Heart rate 84 /min Shaye Domingo VOLUNTEER SERVICES ASSISTANT.SIGN BOARD ERECTOR Work Phone: [facility] 10-31-2024 11:09-0400 Systolic blood pressure 147 mm[Hg] Shaye Domingo VOLUNTEER SERVICES ASSISTANT.SIGN BOARD ERECTOR Work Phone: [facility] 04-07-2024 09:30-0400 Body mass index (BMI) [Ratio] 25.06 kg/m2 Albin Aurin VOLUNTEER SERVICES ASSISTANT.SIGN BOARD ERECTOR Work Phone: [facility] 04-07-2024 09:30-0400 Body weight 62.14 kg Albin Aurin VOLUNTEER SERVICES ASSISTANT.SIGN BOARD ERECTOR Work Phone: [facility] 04-07-2024 09:30-0400 Diastolic blood pressure 47 mm[Hg] Albin Aurin VOLUNTEER SERVICES ASSISTANT.SIGN BOARD ERECTOR Work Phone: [facility] 04-07-2024 09:30-0400 Heart rate 91 /min Albin Aurin VOLUNTEER SERVICES ASSISTANT.SIGN BOARD ERECTOR Work Phone: [facility] 04-07-2024 09:30-0400 SaO2% (BldA) [Mass fraction] 98 % Albin Aurin VOLUNTEER SERVICES ASSISTANT.SIGN BOARD ERECTOR Work Phone: [facility] 04-07-2024 09:30-0400 Systolic blood pressure 142 mm[Hg] Albin Aurin VOLUNTEER SERVICES ASSISTANT.SIGN BOARD ERECTOR Work Phone: [facility] 01-17-2024 09:50-0400 Body height 157.5 cm Carla Burdick MD Work Phone: [facility] 01-17-2024 09:50-0400 Body mass index (BMI) [Ratio] 26.92 kg/m2 Carla Burdick MD Work Phone: [facility] 01-17-2024 09:50-0400 Body weight 66.77 kg Carla Burdick MD Work Phone: [facility] 01-17-2024 09:50-0400 Diastolic blood pressure 59 mm[Hg] Carla Burdick MD Work Phone: [facility] 01-17-2024 09:50-0400 Heart rate 64 /min Carla Burdick MD Work Phone: [facility] 01-17-2024 09:50-0400 SaO2% (BldA) [Mass fraction] 99 % Carla Burdick MD Work Phone: [facility] 01-17-2024 09:50-0400 Systolic blood pressure 157 mm[Hg] Carla Burdick MD Work Phone: [facility] 12-07-2023 11:46-0400 Diastolic blood pressure 76 mm[Hg] Deysi Haagen VOLUNTEER SERVICES ASSISTANT.SIGN BOARD ERECTOR Work Phone: [facility] 12-07-2023 11:46-0400 Heart rate 68 /min Deysi Haagen VOLUNTEER SERVICES ASSISTANT.SIGN BOARD ERECTOR Work Phone: [facility] 12-07-2023 11:46-0400 Respiratory rate 16 /min Deysi Haagen VOLUNTEER SERVICES ASSISTANT.SIGN BOARD ERECTOR Work Phone: [facility] 12-07-2023 11:46-0400 SaO2% (BldA) [Mass fraction] 97 % Deysi Haagen VOLUNTEER SERVICES ASSISTANT.SIGN BOARD ERECTOR Work Phone: [facility] 12-07-2023 11:46-0400 Systolic blood pressure 128 mm[Hg] Deysi Haagen VOLUNTEER SERVICES ASSISTANT.SIGN BOARD ERECTOR Work Phone: [facility] 11-25-2023 10:42-0400 Diastolic blood pressure 37 mm[Hg] Albin Aurin VOLUNTEER SERVICES ASSISTANT.SIGN BOARD ERECTOR Work Phone: [facility] 11-25-2023 10:42-0400 Systolic blood pressure 160 mm[Hg] Albin Aurin VOLUNTEER SERVICES ASSISTANT.SIGN BOARD ERECTOR Work Phone: [facility] 11-25-2023 10:00-0400 Body mass index (BMI) [Ratio] 26.89 kg/m2 Albin Aurin VOLUNTEER SERVICES ASSISTANT.SIGN BOARD ERECTOR Work Phone: [facility] 11-25-2023 10:00-0400 Body weight 66.68 kg Albin Aurin VOLUNTEER SERVICES ASSISTANT.SIGN BOARD ERECTOR Work Phone: [facility] 11-25-2023 10:00-0400 Heart rate 60 /min Albin Aurin VOLUNTEER SERVICES ASSISTANT.SIGN BOARD ERECTOR Work Phone: [facility] 11-25-2023 10:00-0400 SaO2% (BldA) [Mass fraction] 98 % Albin Gu VOLUNTEER SERVICES ASSISTANT.SIGN BOARD ERECTOR Work Phone: [facility] 11-22-2023 09:09-0400 Body mass index (BMI) [Ratio] 27.44 kg/m2 Deysi Haagen VOLUNTEER SERVICES ASSISTANT.SIGN BOARD ERECTOR Work Phone: [facility] 11-22-2023 09:09-0400 Body weight 68.04 kg Deysi Haagen VOLUNTEER SERVICES ASSISTANT.SIGN BOARD ERECTOR Work Phone: [facility] 11-22-2023 09:09-0400 Diastolic blood pressure 76 mm[Hg] Deysi Haagen VOLUNTEER SERVICES ASSISTANT.SIGN BOARD ERECTOR Work Phone: [facility] 11-22-2023 09:09-0400 Heart rate 67 /min Deysi Haagen VOLUNTEER SERVICES ASSISTANT.SIGN BOARD ERECTOR Work Phone: [facility] 11-22-2023 09:09-0400 Respiratory rate 16 /min Deysi Haagen VOLUNTEER SERVICES ASSISTANT.SIGN BOARD ERECTOR Work Phone: [facility] 11-22-2023 09:09-0400 SaO2% (BldA) [Mass fraction] 98 % Deysi Haagen VOLUNTEER SERVICES ASSISTANT.SIGN BOARD ERECTOR Work Phone: [facility] 11-22-2023 09:09-0400 Systolic blood pressure 128 mm[Hg] Deysi Haagen VOLUNTEER SERVICES ASSISTANT.SIGN BOARD ERECTOR Work Phone: [facility] 11-08-2023 16:36-0400 Body mass index (BMI) [Ratio] 29.98 kg/m2 Bere Boykin VOLUNTEER SERVICES ASSISTANT.SIGN BOARD ERECTOR Work Phone: [facility] 11-08-2023 16:36-0400 Body weight 73.17 kg Bere Boykin VOLUNTEER SERVICES ASSISTANT.C HIM MANAGER Work Phone: [facility] 11-08-2023 16:36-0400 Diastolic blood pressure 70 mm[Hg] Bere Boykin VOLUNTEER SERVICES ASSISTANT.SIGN BOARD ERECTOR Work Phone: [facility] 11-08-2023 16:36-0400 Heart rate 94 /min Bere Boykin VOLUNTEER SERVICES ASSISTANT.C HIM MANAGER Work Phone: [facility] 11-08-2023 16:36-0400 SaO2% (BldA) [Mass fraction] 95 % Bere Boykin VOLUNTEER SERVICES ASSISTANT.SIGN BOARD ERECTOR Work Phone: [facility] 11-08-2023 16:36-0400 Systolic blood pressure 156 mm[Hg] Bere Boykin VOLUNTEER SERVICES ASSISTANT.SIGN BOARD ERECTOR Work Phone: [facility] 11-04-2023 08:08-0400 Body mass index (BMI) [Ratio] 29.74 kg/m2 NA Le PA-C Work Phone: [facility] 11-04-2023 08:08-0400 Body weight 72.58 kg NA Le PA-C Work Phone: [facility] 11-04-2023 08:08-0400 Diastolic blood pressure 70 mm[Hg] NA Le PA-C Work Phone: [facility] 11-04-2023 08:08-0400 Heart rate 88 /min NA Le PA-C Work Phone: [facility] 11-04-2023 08:08-0400 Respiratory rate 20 /min NA Le PA-C Work Phone: [facility] 11-04-2023 08:08-0400 SaO2% (BldA) [Mass fraction] 97 % NA Le PA-C Work Phone: [facility] 11-04-2023 08:08-0400 Systolic blood pressure 130 mm[Hg] NA Le PA-C Work Phone: [facility] 10-18-2023 13:11-0400 Diastolic blood pressure 76 mm[Hg] NA Le PA-C Work Phone: [facility] 10-18-2023 13:11-0400 Systolic blood pressure 144 mm[Hg] NA Le PA-C Work Phone: [facility] 10-18-2023 13:04-0400 Body weight 75.48 kg NA Le PA-C Work Phone: [facility] 10-18-2023 13:04-0400 Heart rate 90 /min NA Le PA-C Work Phone: [facility] 10-18-2023 13:04-0400 Respiratory rate 20 /min NA Le PA-C Work Phone: [facility] 10-18-2023 13:04-0400 SaO2% (BldA) [Mass fraction] 99 % NA Le PA-C Work Phone: [facility] 10-14-2023 14:40-0400 Diastolic blood pressure 73 mm[Hg] Lars Silva DO Work Phone: [facility] 10-14-2023 14:40-0400 Heart rate 85 /min Lars Silva DO Work Phone: [facility] 10-14-2023 14:40-0400 SaO2% (BldA) [Mass fraction] 97 % Lars Silva DO Work Phone: [facility] 10-14-2023 14:40-0400 Systolic blood pressure 153 mm[Hg] Lars Silva DO Work Phone: [facility] 07-05-2023 11:19-0500 Body temperature 98.49 [degF] Bijan Cole MD Work Phone: [facility] 07-05-2023 11:19-0500 Body weight 71.31 kg Bijan Cole MD Work Phone: [facility] 07-05-2023 11:19-0500 Diastolic blood pressure 80 mm[Hg] Bijan Cole MD Work Phone: [facility] 07-05-2023 11:19-0500 Heart rate 90 /min Bijan Cole MD Work Phone: [facility] 07-05-2023 11:19-0500 Respiratory rate 20 /min Bijan Cole MD Work Phone: [facility] 07-05-2023 11:19-0500 SaO2% (BldA) [Mass fraction] 98 % Bijan Cole MD Work Phone: [facility] 07-05-2023 11:19-0500 Systolic blood pressure 158 mm[Hg] Bijan Cole MD Work Phone: [facility] 01-07-2023 08:44-0400 Body weight 65.77 kg NA Le PA-C Work Phone: [facility] 01-07-2023 08:44-0400 Diastolic blood pressure 72 mm[Hg] NA Le PA-C Work Phone: [facility] 01-07-2023 08:44-0400 Heart rate 70 /min NA Le PA-C Work Phone: [facility] 01-07-2023 08:44-0400 Respiratory rate 16 /min NA Le PA-C Work Phone: [facility] 01-07-2023 08:44-0400 SaO2% (BldA) [Mass fraction] 96 % NA Le PA-C Work Phone: [facility] 01-07-2023 08:44-0400 Systolic blood pressure 136 mm[Hg] NA Le PA-C Work Phone: [facility] 10-06-2022 09:13-0400 Body weight 66.22 kg NA Le PA-C Work Phone: [facility] 10-06-2022 09:13-0400 Diastolic blood pressure 68 mm[Hg] NA Le PA-C Work Phone: [facility] 10-06-2022 09:13-0400 Heart rate 81 /min NA Le PA-C Work Phone: [facility] 10-06-2022 09:13-0400 Respiratory rate 18 /min NA Le PA-C Work Phone: [facility] 10-06-2022 09:13-0400 SaO2% (BldA) [Mass fraction] 96 % NA Le PA-C Work Phone: [facility] 10-06-2022 09:13-0400 Systolic blood pressure 144 mm[Hg] NA Le PA-C Work Phone: [facility] 09-28-2022 09:15-0400 Body height 156.2 cm Carla Burdick MD Work Phone: [facility] 09-28-2022 09:15-0400 Body weight 68.4 kg Carla Burdick MD Work Phone: [facility] 09-28-2022 09:15-0400 Diastolic blood pressure 74 mm[Hg] Carla Burdick MD Work Phone: [facility] 09-28-2022 09:15-0400 Heart rate 78 /min Carla Burdick MD Work Phone: [facility] 09-28-2022 09:15-0400 Systolic blood pressure 128 mm[Hg] Carla Burdick MD Work Phone: [facility] 07-07-2022 08:56-0500 Body weight 65.32 kg NA Le PA-C Work Phone: [facility] 07-07-2022 08:56-0500 Diastolic blood pressure 62 mm[Hg] NA Le PA-C Work Phone: [facility] 07-07-2022 08:56-0500 Heart rate 74 /min NA Le PA-C Work Phone: [facility] 07-07-2022 08:56-0500 Respiratory rate 16 /min NA Le PA-C Work Phone: [facility] 07-07-2022 08:56-0500 SaO2% (BldA) [Mass fraction] 97 % NA Le PA-C Work Phone: [facility] 07-07-2022 08:56-0500 Systolic blood pressure 148 mm[Hg] NA Le PA-C Work Phone: [facility] 05-14-2022 09:27-0500 Body temperature 98.91 [degF] Sonny Lund MD Work Phone: [facility] 05-14-2022 09:27-0500 Body weight 68.49 kg Sonny Lund MD Work Phone: [facility] 05-14-2022 09:27-0500 Diastolic blood pressure 72 mm[Hg] Sonny Lund MD Work Phone: [facility] 05-14-2022 09:27-0500 Heart rate 84 /min Sonny Lund MD Work Phone: [facility] 05-14-2022 09:27-0500 Respiratory rate 16 /min Sonny Lund MD Work Phone: [facility] 05-14-2022 09:27-0500 SaO2% (BldA) [Mass fraction] 98 % Sonny Lund MD Work Phone: [facility] 05-14-2022 09:27-0500 Systolic blood pressure 147 mm[Hg] Sonny Lund MD Work Phone: [facility] 04-28-2022 09:09-0400 Body temperature 97.3 [degF] Treatment Wstr Work Phone: [facility] 04-28-2022 09:09-0400 Diastolic blood pressure 62 mm[Hg] Treatment Wstr Work Phone: [facility] 04-28-2022 09:09-0400 Heart rate 83 /min Treatment Wstr Work Phone: [facility] 04-28-2022 09:09-0400 Systolic blood pressure 122 mm[Hg] Treatment Wstr Work Phone: [facility] 04-22-2022 10:54-0400 Body temperature 97.11 [degF] Treatment Wstr Work Phone: [facility] 04-22-2022 10:54-0400 Diastolic blood pressure 68 mm[Hg] Treatment Wstr Work Phone: [facility] 04-22-2022 10:54-0400 Heart rate 102 /min Treatment Wstr Work Phone: [facility] 04-22-2022 10:54-0400 Systolic blood pressure 135 mm[Hg] Treatment Wstr Work Phone: [facility] 04-20-2022 09:30-0400 Body temperature 97.9 [degF] Treatment Wstr Work Phone: [facility] 04-20-2022 09:30-0400 Diastolic blood pressure 61 mm[Hg] Treatment Wstr Work Phone: [facility] 04-20-2022 09:30-0400 Heart rate 98 /min Treatment Wstr Work Phone: [facility] 04-20-2022 09:30-0400 Systolic blood pressure 130 mm[Hg] Treatment Wstr Work Phone: [facility] 04-17-2022 15:31-0400 Body temperature 98.1 [degF] Treatment Wstr Work Phone: [facility] 04-17-2022 15:31-0400 Diastolic blood pressure 66 mm[Hg] Treatment Wstr Work Phone: [facility] 04-17-2022 15:31-0400 Heart rate 97 /min Treatment Wstr Work Phone: [facility] 04-17-2022 15:31-0400 SaO2% (BldA) [Mass fraction] 99 % Treatment Wstr Work Phone: [facility] 04-17-2022 15:31-0400 Systolic blood pressure 137 mm[Hg] Treatment Wstr Work Phone: [facility] 04-09-2022 11:33-0400 Body height 161.3 cm Brayan Chiacs MD Work Phone: [facility] 04-09-2022 11:33-0400 Body weight 67.59 kg Brayan Chicas MD Work Phone: [facility] 04-06-2022 10:44-0400 Body weight 66.68 kg CARMELINA Le PA-C Work Phone: [facility] 10-03-2022 10:44-0400 Diastolic blood pressure 72 mm[Hg] NA Le PA-C Work Phone: [facility] 04-06-2022 10:44-0400 Heart rate 95 /min NA Le PA-C Work Phone: [facility] 04-06-2022 10:44-0400 Respiratory rate 24 /min NA Le PA-C Work Phone: [facility] 04-06-2022 10:44-0400 SaO2% (BldA) [Mass fraction] 99 % NA Le PA-C Work Phone: [facility] 04-06-2022 10:44-0400 Systolic blood pressure 148 mm[Hg] NA Le PA-C Work Phone: [facility] 03-30-2022 08:49-0400 Body weight 65.32 kg Carla Burdick MD Work Phone: [facility] 03-30-2022 08:49-0400 Diastolic blood pressure 64 mm[Hg] Carla Burdick MD Work Phone: [facility] 03-30-2022 08:49-0400 Heart rate 90 /min Carla Burdick MD Work Phone: [facility] 03-30-2022 08:49-0400 SaO2% (BldA) [Mass fraction] 100 % Carla Burdick MD Work Phone: [facility] 03-30-2022 08:49-0400 Systolic blood pressure 144 mm[Hg] Carla Burdick MD Work Phone: [facility] 03-19-2022 11:07-0400 Body weight 69.85 kg NA Le PA-C Work Phone: [facility] 03-19-2022 11:07-0400 Diastolic blood pressure 66 mm[Hg] NA Le PA-C Work Phone: [facility] 03-19-2022 11:07-0400 Heart rate 112 /min NA Le PA-C Work Phone: [facility] 03-19-2022 11:07-0400 Respiratory rate 24 /min NA Le PA-C Work Phone: [facility] 03-19-2022 11:07-0400 SaO2% (BldA) [Mass fraction] 97 % NA Le PA-C Work Phone: [facility] 03-19-2022 11:07-0400 Systolic blood pressure 148 mm[Hg] NA Le PA-C Work Phone: [facility] 03-03-2022 13:45-0400 Body height 160 cm Radha Brian VOLUNTEER SERVICES ASSISTANT.SIGN BOARD ERECTOR Work Phone: [facility] 03-03-2022 13:45-0400 Body weight 63.5 kg Radha Brian VOLUNTEER SERVICES ASSISTANT.SIGN BOARD ERECTOR Work Phone: [facility] 03-03-2022 13:45-0400 Diastolic blood pressure 72 mm[Hg] Radha Brian VOLUNTEER SERVICES ASSISTANT.SIGN BOARD ERECTOR Work Phone: [facility] 03-03-2022 13:45-0400 Heart rate 98 /min Radha Brian VOLUNTEER SERVICES ASSISTANT.SIGN BOARD ERECTOR Work Phone: [facility] 03-03-2022 13:45-0400 Systolic blood pressure 141 mm[Hg] Radha Brian VOLUNTEER SERVICES ASSISTANT.SIGN BOARD ERECTOR Work Phone: [facility] 03-03-2022 13:00-0400 Diastolic blood pressure 62 mm[Hg] [facility] 03-03-2022 13:00-0400 Heart rate 105 /min [facility] 03-03-2022 13:00-0400 SaO2% (BldA) [Mass fraction] 94 % [facility] 03-03-2022 13:00-0400 Systolic blood pressure 129 mm[Hg] [facility] 03-03-2022 12:50-0400 Respiratory rate 12 /min [facility] 03-03-2022 10:56-0400 Body temperature 97.5 [degF] [facility] 02-20-2022 09:31-0400 Body weight 64.86 kg NA Le PA-C Work Phone: [facility] 02-20-2022 09:31-0400 Diastolic blood pressure 78 mm[Hg] NA Le PA-C Work Phone: [facility] 02-20-2022 09:31-0400 Heart rate 116 /min NA Le PA-C Work Phone: [facility] 02-20-2022 09:31-0400 Respiratory rate 16 /min NA Le PA-C Work Phone: [facility] 02-20-2022 09:31-0400 SaO2% (BldA) [Mass fraction] 100 % NA Le PA-C Work Phone: [facility] 02-20-2022 09:31-0400 Systolic blood pressure 132 mm[Hg] NA Le PA-C Work Phone: [facility] 01-16-2022 10:26-0400 Body temperature 98.49 [degF] NA Le PA-C Work Phone: [facility] 01-16-2022 10:26-0400 Body weight 64.41 kg NA Le PA-C Work Phone: [facility] 01-16-2022 10:26-0400 Diastolic blood pressure 72 mm[Hg] NA Le PA-C Work Phone: [facility] 01-16-2022 10:26-0400 Heart rate 92 /min NA Le PA-C Work Phone: [facility] 01-16-2022 10:26-0400 Respiratory rate 16 /min NA Le PA-C Work Phone: [facility] 01-16-2022 10:26-0400 SaO2% (BldA) [Mass fraction] 98 % NA Le PA-C Work Phone: [facility] 01-16-2022 10:26-0400 Systolic blood pressure 138 mm[Hg] NA Le PA-C Work Phone: [facility] 01-09-2022 14:25-0400 Diastolic blood pressure 66 mm[Hg] Emilia Diallo MD Work Phone: [facility] 01-09-2022 14:25-0400 Heart rate 95 /min Emilia Diallo MD Work Phone: [facility] 01-09-2022 14:25-0400 SaO2% (BldA) [Mass fraction] 99 % Emilia Diallo MD Work Phone: [facility] 01-09-2022 14:25-0400 Systolic blood pressure 133 mm[Hg] Emilia Diallo MD Work Phone: [facility] 01-02-2022 11:15-0400 Diastolic blood pressure 60 mm[Hg] Chai Encinas MD Work Phone: [facility] 01-02-2022 11:15-0400 Heart rate 89 /min Cahi Encinas MD Work Phone: [facility] 01-02-2022 11:15-0400 SaO2% (BldA) [Mass fraction] 97 % Chai Encinas MD Work Phone: [facility] 01-02-2022 11:15-0400 Systolic blood pressure 134 mm[Hg] Chai Encinas MD Work Phone: [facility] 01-02-2022 11:00-0400 Respiratory rate 20 /min Chai Encinas MD Work Phone: [facility] 01-02-2022 10:42-0400 Body temperature 97.9 [degF] Chai Encinas MD Work Phone: [facility] 01-02-2022 08:59-0400 Body height 160 cm Chai Encinas MD Work Phone: [facility] 01-02-2022 08:59-0400 Body weight 65.77 kg Chai Encinas MD Work Phone: [facility] 01-01-2022 09:45-0400 Body height 160 cm Chai Encinas MD Work Phone: [facility] 01-01-2022 09:45-0400 Body temperature 97 [degF] Chai Encinas MD Work Phone: [facility] 01-01-2022 09:45-0400 Body weight 65.77 kg Chai Encinas MD Work Phone: [facility] 01-01-2022 09:45-0400 Diastolic blood pressure 52 mm[Hg] Chai Encinas MD Work Phone: [facility] 01-01-2022 09:45-0400 Heart rate 100 /min Chai Encinas MD Work Phone: [facility] 01-01-2022 09:45-0400 SaO2% (BldA) [Mass fraction] 98 % Chai Encinas MD Work Phone: [facility] 01-01-2022 09:45-0400 Systolic blood pressure 122 mm[Hg] Chai Encinas MD Work Phone: [facility] 12-30-2021 13:16-0400 Body temperature 96.9 [degF] [facility] Work Phone: 12-30-2021 13:16-0400 Diastolic blood pressure 54 mm[Hg] [facility] Work Phone: 12-30-2021 13:16-0400 Heart rate 73 /min [facility] Work Phone: 12-30-2021 13:16-0400 Respiratory rate 16 /min [facility] Work Phone: 12-30-2021 13:16-0400 SaO2% (BldA) [Mass fraction] 97 % [facility] Work Phone: 12-30-2021 13:16-0400 Systolic blood pressure 113 mm[Hg] [facility] Work Phone: 12-30-2021 08:17-0400 Body height 160.02 cm [facility] Work Phone: 12-15-2021 09:08-0400 Body temperature 98.2 [degF] NA Le PA-C Work Phone: [facility] 12-15-2021 09:08-0400 Body weight 66.04 kg NA Le PA-C Work Phone: [facility] 12-15-2021 09:08-0400 Diastolic blood pressure 64 mm[Hg] NA Le PA-C Work Phone: [facility] 12-15-2021 09:08-0400 Heart rate 97 /min NA Le PA-C Work Phone: [facility] 12-15-2021 09:08-0400 Respiratory rate 18 /min NA Le PA-C Work Phone: [facility] 12-15-2021 09:08-0400 SaO2% (BldA) [Mass fraction] 99 % NA Le PA-C Work Phone: [facility] 12-15-2021 09:08-0400 Systolic blood pressure 118 mm[Hg] NA Le PA-C Work Phone: [facility] 11-26-2021 09:54-0400 Body height 160 cm Na Ramirez VOLUNTEER SERVICES ASSISTANT.CN P Work Phone: [facility] 11-26-2021 09:54-0400 Body weight 65.77 kg Na Ramirez VOLUNTEER SERVICES ASSISTANT.CN P Work Phone: [facility] 01-19-2019 10:25-0400 BMI (Body Mass Index) 28.62 kg/m2 [facility] [employer] 01-19-2019 10:25-0400 Body weight 72.12 kg [facility] [employer] 01-19-2019 10:25-0400 BP Diastolic 64 mm[Hg] [facility] [employer] 01-19-2019 10:25-0400 BP Systolic 134 mm[Hg] [facility] [employer] 01-19-2019 10:25-0400 Height 158.8 cm [facility] [employer] 01-19-2019 10:25-0400 Pulse (Heart Rate) 100 /min [facility] 01-19-2019 10:25 Pulse Oximetry 99 % [facility] 01-19-2019 10:25-0400 Respiratory Rate 16 /min [facility] Encounters Encounter Date Encounter Type Care Provider Facility Start: 01-01-2025 End: 01-01-2025 Patient encounter procedure Carla Burdick MD Work Phone: Cardiology Comment on above: Chronic diastolic (c ongestive) heart failure (HCC) (Primary Dx); History of prosthetic aortic valve replacement; Paroxysmal atrial fibrillation (HCC); PAD (peripheral artery disease); Primary hypertension; Acute on chronic diastolic congestive heart failure (HCC); Hyperlipidemia with target LDL less than 70 Start: 01-01-2025 End: 01-01-2025 ambulatory CARLA BURDICK Facility:[facility] Start: 12-26-2024 End: 12-26-2024 Orders Only Albin Gu APRN.SIGN BOARD ERECTOR Work Phone: Cardiology Comment on above: Returning Patient's Call Start: 12-20-2024 End: 12-20-2024 Patient encounter procedure Lars Silva DO Work Phone: Vascular Surgery Comment on above: Superior mesenteric artery stenosis (HCC) (Primary Dx) Start: 12-20-2024 End: 12-20-2024 ambulatory LARS SILVA Facility:[facility] Start: 12-19-2024 End: 12-19-2024 Patient encounter procedure Albin Gu APRN.SIGN BOARD ERECTOR Work Phone: Cardiology Comment on above: Chronic diastolic co ngestive heart failure (HCC) (Primary Dx); Primary hypertension; SSS (sick sinus syndrome) (HCC); Longstanding persistent atrial fibrillation (HCC) Start: 12-19-2024 End: 12-19-2024 ambulatory ALBIN GU Facility:[facility] Start: 12-13-2024 End: 12-13-2024 Telephone encounter Deysi Nicholson APRN.CNP Work Phone: NOC Comment on above: Transition Of Care Start: 12-11-2024 End: 12-11-2024 Telephone encounter Deysi Nicholson APRN.SIGN BOARD ERECTOR Work Phone: [address] [place] [address] Start: 12-10-2024 End: 12-12-2024 Evaluation and management of inpatient [facility] Facility:[facility] Start: 12-01-2024 End: 12-01-2024 ambulatory CARLA BURDICK Facility:[facility] Start: 11-20-2024 End: 11-20-2024 Patient encounter procedure Carla Burdick MD Work Phone: Cardiology Comment on above: History of prostheti c aortic valve replacement (Primary Dx); Chronic diastolic (congestive) heart failure (HCC); Ascending aorta dilatation; Longstanding persistent atrial fibrillation (HCC); PAD (peripheral artery disease); Primary hypertension; Hyperlipidemia with target LDL less than 70; Acute mesenteric ischemia (HCC) Start: 11-20-2024 End: 11-20-2024 ambulatory CARLA BURDICK Facility:[facility] Start: 11-15-2024 End: 11-15-2024 Follow-up encounter Caral Burdick MD Work Phone: [facility] [place] Start: 11-13-2024 End: 11-13-2024 ambulatory [facility] Facility:[facility] Start: 11-06-2024 End: 11-06-2024 ambulatory CARLA BURDICK Facility:[facility] Start: 11-06-2024 End: 11-06-2024 Patient encounter procedure Carla Burdick MD Work Phone: Cardiology Comment on above: History of prostheti c aortic valve replacement (Primary Dx); Chronic diastolic (congestive) heart failure (HCC); Ascending aorta dilatation; Longstanding persistent atrial fibrillation (HCC); S/P placement of cardiac pacemaker; PAD (peripheral artery disease); 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HCC); Hyperlipidemia with target LDL less than 70; Primary hypertension; Bilateral carotid artery stenosis Start: 11-03-2024 End: 11-03-2024 Telephone encounter Albin Gu APRN.CNP Work Phone: Cardiology Comment on above: Results Start: 11-03-2024 End: 11-03-2024 ambulatory ALBIN GU Facility:[facility] Start: 11-03-2024 End: 11-03-2024 Patient encounter procedure Albin Gu APRN.CNP Work Phone: Cardiology Comment on above: Chronic diastolic co ngestive heart failure (HCC) (Primary Dx); Primary hypertension; SSS (sick sinus syndrome) (HCC); Longstanding persistent atrial fibrillation (HCC); Stage 3b chronic kidney disease (HCC) Start: 11-03-2024 End: 11-03-2024 ambulatory ALBIN GU Facility:[facility] Start: 10-31-2024 End: 12-31-2024 Follow-up encounter Shaye Domingo APRN.CNP Work Phone: [facility] Start: 10-31-2024 End: 10-31-2024 ambulatory SHAYE DOMINGO Facility:[facility] Start: 10-31-2024 End: 10-31-2024 Office outpatient visit 25 minutes Shaye Domingo APRN.CNP Work Phone: [facility] Comment on above: Acute mesenteric isc hemia (HCC) (Primary Dx); MONIQUE (acute kidney injury); Gastrointestinal hemorrhage, unspecified gastrointestinal hemorrhage type; Hypomagnesemia; Physical deconditioning; Acute on chronic diastolic congestive heart failure (HCC); Hospital discharge follow-up Start: 10-28-2024 End: 11-01-2024 E-mail encounter from caregiver Carla Burdick MD Work Phone: Cardiology Start: 10-28-2024 End: 11-01-2024 Patient encounter procedure Carla Burdick MD Work Phone: Cardiology Comment on above: Appointment Request Start: 10-12-2024 End: 10-12-2024 Telephone encounter Albin Gu APRN.CNP Work Phone: Cardiology Comment on above: Patient Update Start: 07-31-2024 End: 07-31-2024 Telephone encounter Melida Koo APRN.CNP Work Phone: Cardiology Start: 07-07-2024 End: 07-07-2024 ambulatory DIANNE LE Facility:[facility] Start: 07-07-2024 End: 07-07-2024 ambulatory DIANNE LE Facility:[facility] Start: 04-07-2024 End: 04-07-2024 Patient encounter procedure Albin Gu VOLUNTEER SERVICES ASSISTANT.SIGN BOARD ERECTOR Work Phone: Cardiology Comment on above: Chronic diastolic co ngestive heart failure (HCC) (Primary Dx); Primary hypertension; SSS (sick sinus syndrome) (HCC); Longstanding persistent atrial fibrillation (HCC) Start: 04-07-2024 End: 04-07-2024 ambulatory ALBIN GU Facility:[facility] Start: 03-14-2024 End: 03-14-2024 Refill Melida Koo VOLUNTEER SERVICES ASSISTANT.SIGN BOARD ERECTOR Work Phone: Cardiology Start: 02-28-2024 End: 02-28-2024 ambulatory [facility] [place] Start: 02-21-2024 End: 02-21-2024 Telephone encounter Melida Koo APRN.SIGN BOARD ERECTOR Work Phone: Cardiology Start: 02-17-2024 ambulatory Carla dempsey MD Work Phone: Cardiology Comment on above: NT Pro BNP Start: 02-15-2024 End: 02-15-2024 ambulatory DIANNE HAASORY LE Facility:[facility] Start: 02-07-2024 Telephone encounter Melida walker VOLUNTEER SERVICES ASSISTANT.SIGN BOARD ERECTOR Work Phone: Cardiology Comment on above: Recheck Chronic diastolic co ngestive heart failure (HCC) (Primary Dx) Start: 02-04-2024 Telephone encounter Albin amaro VOLUNTEER SERVICES ASSISTANT.SIGN BOARD ERECTOR Work Phone: Cardiology Comment on above: Appointment Results Start: 02-03-2024 End: 02-03-2024 ambulatory [facility] Facility:[facility] Start: 01-17-2024 End: 01-17-2024 ambulatory DIANNE TAYLOR LE Facility:[facility] Start: 01-17-2024 End: 01-17-2024 Patient encounter procedure Carla Burdick MD Work Phone: Cardiology Comment on above: History of prostheti c aortic valve replacement (Primary Dx); H/O rheumatic heart disease; Longstanding persistent atrial fibrillation (HCC); Ascending aorta dilatation (HCC); Dilated cardiomyopathy (HCC); Aortic prosthetic valve regurgitation, subsequent encounter; Chronic diastolic (congestive) heart failure (HCC); SSS (sick sinus syndrome) (HCC); Primary hypertension; Hyperlipidemia with target LDL less than 70; S/P placement of cardiac pacemaker; PAD (peripheral artery disease) (HCC); Acute systolic CHF (congestive heart failure) (HCC) Start: 12-07-2023 End: 12-07-2023 Office outpatient visit 15 minutes Deysi Nicholson APRN.JASPREET Work Phone: [facility] Comment on above: URI, acute (Primary Dx) Start: 11-26-2023 ambulatory Valentine Meneses RN Ambulato ry Care Management Comment on above: YONG SAM RN ( ED Utilization Review per request of payer) Start: 11-25-2023 End: 11-25-2023 Patient encounter procedure Albin Gu APRN.CNP Work Phone: Cardiology Comment on above: Chronic diastolic co ngestive heart failure (HCC) (Primary Dx); Primary hypertension; SSS (sick sinus syndrome) (HCC); Longstanding persistent atrial fibrillation (HCC); Acute systolic CHF (congestive heart failure) (HCC) Start: 11-23-2023 ambulatory Ralph Zelaya Work Phone: Hematology/Oncology Comment on above: Results Start: 11-22-2023 End: 11-22-2023 Office outpatient visit 25 minutes Deysi Nicholson APRN.JASPREET Work Phone: [facility] Comment on above: Acute systolic CHF ( congestive heart failure) (HCC) (Primary Dx); Hyponatremia; Hypokalemia Start: 11-19-2023 Telephone encounter Albin amaro APRN.SIGN BOARD ERECTOR Work Phone: Cardiology Comment on above: Patient Question Start: 11-17-2023 Telephone encounter Gwen Valentine RN Cardiology Comment on above: Trimming Cutter Machine - O ther (CHF) Start: 11-16-2023 ambulatory Geri Santoyo RN Amb ulatory Care Management Comment on above: YONG ASM RN ( E.D. Utilization Review per Payer Request.) Start: 11-15-2023 Telephone encounter Nara Malone RN NOC Comment on above: Transition Of Care Start: 11-12-2023 Orders Only Ying saenz APRN.SIGN BOARD ERECTOR Work Phone: Cardiology Comment on above: Stage 3 chronic kidn ey disease, unspecified whether stage 3a or 3b CKD (HCC) (Primary Dx) Initial Consult (HEA RT FAILURE [id number] ) Start: 11-08-2023 End: 11-08-2023 Emergency department patient visit Doreen LE Facility:[facility] Start: 11-08-2023 End: 11-08-2023 Patient encounter procedure Bere Ashutosh ANDERSONSIGN BOARD ERECTOR Work Phone: Cardiology Comment on above: Acute HFrEF (heart f ailure with reduced ejection fraction) (HCC) (Primary Dx); VHD (valvular heart disease); Nonrheumatic tricuspid valve regurgitation; Nonrheumatic mitral valve regurgitation; Persistent atrial fibrillation (HCC); Pacemaker Start: 11-04-2023 End: 11-04-2023 Patient encounter procedure Doreen Le PA-C Work Phone: Family [facility] [place] Comment on above: Acute systolic CHF ( congestive heart failure) (HCC) (Primary Dx); Rheumatic tricuspid valve regurgitation; Diuresis excessive; 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); Dilated cardiomyopathy (HCC); Longstanding persistent atrial fibrillation (HCC); SSS (sick sinus syndrome) (HCC); S/P placement of cardiac pacemaker; Acute hip pain, right; Piriformis syndrome, right; Bilateral knee effusions; Primary osteoarthritis of both knees Start: 11-02-2023 ambulatory Doreen de la cruz PA-C Work Phone: [facility] [place] Comment on above: moving forward Start: 11-02-2023 E-mail encounter fro m caregiver Doreen Le PA-C Work Phone: [facility] [place] Start: 11-02-2023 Telephone encounter Doreen Le PA-C Work Phone: [facility] [place] Comment on above: Results; Orders Start: 10-31-2023 Telephone encounter Doreen Le PA-C Work Phone: [facility] [place] Start: 10-19-2023 End: 10-19-2023 Patient encounter procedure Lars Silva DO Work Phone: Vascular Surgery Comment on above: Venous insufficiency (Primary Dx) Start: 10-18-2023 End: 10-18-2023 Subsequent hospital visit by physician David [facility] [place] Work Phone: Radiology Comment on above: Acute systolic CHF ( congestive heart failure) ([facility]) [I50.21] Start: 10-18-2023 End: 10-18-2023 Patient encounter procedure Doreen Le PA-C Work Phone: Family [facility] [place] Comment on above: SSS (sick sinus synd juliana) ([facility]) (Primary Dx); Paroxysmal atrial fibrillation ([facility]); S/P placement of cardiac pacemaker; Chronic combined systolic and diastolic CHF (congestive heart failure) ([facility]); Dilated cardiomyopathy ([facility]); Ascending aorta dilatation ([facility]); Pedro aneurysm of anterior communicating artery; History of pulmonary embolism; Presence of Watchman left atrial appendage closure device; Platelet inhibition due to Plavix; Primary hypertension; Hyperlipidemia with target LDL less than 70; Heme + stool; Epigastric pain; Blood loss anemia; Acute systolic CHF (congestive heart failure) ([facility]); Vitamin D deficiency Start: 10-15-2023 Telephone encounter Carla Burdick MD Work Phone: Cardiology Comment on above: Patient Update Start: 10-14-2023 End: 10-14-2023 Patient encounter procedure Lars Kellen Silva DO Work Phone: Vascular Surgery Comment on above: Venous insufficiency (Primary Dx) Start: 10-11-2023 Follow-up encounter Yin Joseph MD Work Phone: [facility] Start: 10-11-2023 Pacemaker Remote F/U Yin Joseph MD Work Phone: [facility] Department Start: 07-05-2023 End: 07-05-2023 Patient encounter procedure Bijan Cole MD Work Phone: [facility] Comment on above: Influenza-like illne ss (Primary Dx) Start: 06-07-2023 ambulatory Doreen de la cruz PA-C Work Phone: [facility] [place] Comment on above: Rt. Foot Bone Fractu re Start: 06-01-2023 End: 06-01-2023 Subsequent hospital visit by physician Xr [facility] Work Phone: Radiology Comment on above: Closed nondisplaced fracture of fifth metatarsal bone of right foot with routine healing, subsequent encounter [S92.354D] Start: 04-30-2023 End: 04-30-2023 Subsequent hospital visit by physician Ct [facility] (I-Stat) Work Phone: Cat Scan Comment on above: Lung nodule, solitar y [R91.1] Start: 04-12-2023 End: 04-12-2023 Subsequent hospital visit by physician Xr [facility] Work Phone: Radiology Comment on above: Pain of right middle finger [M79.644] Start: 04-07-2023 End: 04-07-2023 Emergency department patient visit [facility] Facility[facility] Start: 03-23-2023 Follow-up encounter Yin Joseph MD Work Phone: [facility] Start: 03-23-2023 Pacemaker Remote F/U Yin Joseph MD Work Phone: [facility] Department Start: 03-15-2023 Refill Doreen de la cruz PA-C Work Phone: Family [facility] Comment on above: Refill Request Start: 01-28-2023 Telephone encounter Doreen Le PA-C Work Phone: [facility] Comment on above: Appointment Start: 01-08-2023 Telephone encounter Doreen Le PA-C Work Phone: [facility] Comment on above: Orders Start: 01-07-2023 End: 01-07-2023 Patient encounter procedure Doreen Le PA-C Work Phone: [facility] Comment on above: Bilateral carotid ar marcelo stenosis (Primary Dx); Atherosclerosis of [place] artery of both lower extremities with intermittent claudication (HCC); 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HCC); Pain in both lower legs; Iron 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; Iron malabsorption; S/P placement of cardiac pacemaker; SSS (sick sinus syndrome) (HCC); 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); Dilated cardiomyopathy (HCC); Ascending aorta dilatation (HCC); H/O rheumatic heart disease; History of prosthetic aortic valve replacement; Paroxysmal atrial fibrillation (HCC); History of pulmonary embolism; Presence of Watchman left atrial appendage closure device; Platelet inhibition due to Plavix; Primary hypertension; Hyperlipidemia with target LDL less than 70; Lung nodule, solitary; Type 2 diabetes mellitus with diabetic peripheral angiopathy without gangrene, without long-term current use of insulin (HCC); Chronic renal failure, stage 3b (HCC); Renal cell carcinoma of right kidney (HCC); Gastrointestinal hemorrhage associated with acute gastritis; Esophageal stenosis; Hypomagnesemia; Duodenal ulcer; Iron deficiency anemia, unspecified iron deficiency anemia type Start: 12-22-2022 Follow-up encounter Yin Joseph MD Work Phone: [facility] Start: 12-22-2022 Pacemaker Remote F/U Yin Joseph MD Work Phone: [facility] Department Start: 12-10-2022 ambulatory Doreen LE Facili ty:[facility] Start: 10-06-2022 End: 10-06-2022 Patient encounter procedure Doreen Le PA-C Work Phone: [facility] Comment on above: S/P placement of car diac pacemaker (Primary Dx); SSS (sick sinus syndrome) (HCC); 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); Dilated cardiomyopathy (HCC); Ascending aorta dilatation (HCC); H/O rheumatic heart disease; History of prosthetic aortic valve replacement; Paroxysmal atrial fibrillation (HCC); Presence of Watchman left atrial appendage closure device; Platelet inhibition due to Plavix; Primary hypertension; Hyperlipidemia with target LDL less than 70; History of pulmonary embolism; Lung nodule, solitary; Chronic renal failure, stage 3b (HCC); Gastroesophageal reflux disease without esophagitis; Esophageal stenosis; Diverticulitis large intestine w/o perforation or abscess w/o bleeding; Iron malabsorption; History of ischemic colitis; Adenomatous polyp of descending colon; Pdero aneurysm of anterior communicating artery; Bilateral carotid artery stenosis; Type 2 diabetes mellitus with diabetic peripheral angiopathy without gangrene, without long-term current use of insulin (HCC) Start: 10-05-2022 End: 10-05-2022 Subsequent hospital visit by physician [facility] [place] W[facility] Mob 2 Work Phone: Radiology Comment on above: 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] Start: 09-29-2022 Refill Doreen de la cruz PA-C Work Phone: Hematology/Oncology Comment on above: Refill Request Start: 09-28-2022 End: 09-28-2022 Patient encounter procedure Carla Burdick MD Work Phone: Cardiology Comment on above: History of prostheti c aortic valve replacement (Primary Dx); H/O rheumatic heart disease; Paroxysmal atrial fibrillation ([facility]); Ascending aorta dilatation ([facility]); Dilated cardiomyopathy ([facility]); Chronic combined systolic and diastolic CHF (congestive heart failure) ([facility]); SSS (sick sinus syndrome) ([facility]); S/P placement of cardiac pacemaker; PAD (peripheral artery disease) ([facility]); Hyperlipidemia with target LDL less than 70 Start: 09-21-2022 Follow-up encounter Yin Joseph MD Work Phone: [facility] Start: 09-21-2022 Pacemaker Remote F/U Yin Joseph MD Work Phone: [facility] Department Start: 08-30-2022 Refill Doreen de la cruz PA-C Work Phone: [facility] [place] Comment on above: Refill Request Start: 07-22-2022 Telephone encounter Research C oordinator Work Phone: Cardiology Comment on above: Research (IRB [id number]) Start: 07-08-2022 Telephone encounter Doreen Le PA-C Work Phone: [facility] [place] Comment on above: Information Start: 07-07-2022 End: 07-07-2022 Patient encounter procedure Doreen Le PA-C Work Phone: Family [facility] [place] Comment on above: H/O rheumatic heart disease (Primary Dx); Aortic prosthetic valve regurgitation, subsequent encounter; SSS (sick sinus syndrome) ([facility]); Atrial fibrillation, unspecified type ([facility]); Presence of Watchman left atrial appendage closure device; Chronic combined systolic and diastolic CHF (congestive heart failure) ([facility]); S/P placement of cardiac pacemaker; Dilated cardiomyopathy ([facility]); Ascending aorta dilatation ([facility]); History of pulmonary embolism; Platelet inhibition due to Plavix; Primary hypertension; Hyperlipidemia with target LDL less than 70; Pedro aneurysm of anterior communicating artery; Stage 3b chronic kidney disease ([facility]); Type 2 diabetes mellitus with diabetic peripheral angiopathy without gangrene, without long-term current use of insulin ([facility]); Renal mass, right; Anemia, blood loss; Intracranial aneurysm; Spondylolisthesis at L4-L5 level; Nonruptured cerebral aneurysm; Paroxysmal atrial fibrillation ([facility]); Peripheral artery disease ([facility]) Start: 06-23-2022 Follow-up encounter Yin Joseph MD Work Phone: [facility] Start: 06-23-2022 Pacemaker Remote F/U Yin Joseph MD Work Phone: [facility] Department Start: 05-23-2022 Refill Sonny Lund MD Work Phone: Hematology/Oncology Comment on above: Refill Request; Refi ll Request Start: 05-14-2022 End: 05-14-2022 ambulatory Sonny Lund MD Work Phone: Hematology/Oncology Comment on above: Iron deficiency anem ia secondary to inadequate dietary iron intake (Primary Dx); Chronic renal failure, stage 3b ([facility]) Start: 05-14-2022 End: 05-14-2022 Patient encounter procedure Sonny Lund MD Work Phone: [facility] Start: 04-28-2022 End: 04-28-2022 ambulatory Treatment Rm 7 Tawanda [facility] Work Phone: Hematology/Oncology Comment on above: Iron deficiency anem ia secondary to inadequate dietary iron intake (Primary Dx); Iron malabsorption Start: 04-22-2022 Refill Carla dempsey MD Work Phone: Cardiology Comment on above: Refill Request Start: 04-22-2022 End: 04-22-2022 ambulatory Treatment Rm 7 Tawanda [facility] Work Phone: Hematology/Oncology Comment on above: Iron deficiency anem ia secondary to inadequate dietary iron intake (Primary Dx); Iron malabsorption Start: 04-20-2022 End: 04-20-2022 ambulatory Treatment Rm 9 Tawanda [facility] Work Phone: Hematology/Oncology Comment on above: Iron deficiency anem ia secondary to inadequate dietary iron intake (Primary Dx); Iron malabsorption Start: 04-17-2022 End: 04-17-2022 ambulatory Treatment Rm 9 Tawanda [facility] Work Phone: Hematology/Oncology Comment on above: Iron deficiency anem ia secondary to inadequate dietary iron intake (Primary Dx); Iron malabsorption Start: 04-09-2022 Telephone encounter Doreen Le PA-C Work Phone: [facility] [place] Comment on above: Orders Start: 04-09-2022 End: 04-09-2022 Patient encounter procedure Brayan Chicas MD Work Phone: Urology Comment on above: Neoplasm of uncertai n behavior of right kidney (Primary Dx); Iron deficiency anemia due to chronic blood loss; Stage 3b chronic kidney disease (HCC) Start: 04-07-2022 Telephone encounter Ralph mathis DO Work Phone: Hematology/Oncology Comment on above: Appointment (Iron andre crose) Start: 04-06-2022 End: 04-06-2022 Patient encounter procedure Doreen Le PA-C Work Phone: [facility] [place] Comment on above: Hospital discharge f ollow-up (Primary Dx); H/O rheumatic heart disease; Aortic prosthetic valve regurgitation, subsequent encounter; Acute combined systolic and diastolic congestive heart failure (HCC); SSS (sick sinus syndrome) (HCC); Atrial fibrillation, unspecified type (HCC); Presence of Watchman left atrial appendage closure device; Platelet inhibition due to Plavix; S/P placement of cardiac pacemaker; Dilated cardiomyopathy (HCC); Ascending aorta dilatation (HCC); Primary hypertension; Bilateral pleural effusion; Lung nodule, solitary; Stage 3b chronic kidney disease (HCC); Type 2 diabetes mellitus with diabetic peripheral angiopathy without gangrene, without long-term current use of insulin (HCC); Renal mass, right; Iron deficiency anemia due to chronic blood loss Start: 03-30-2022 Telephone encounter Doreen Le PA-C Work Phone: [facility] [place] Comment on above: Hospital Follow Up; Appointment Start: 03-30-2022 End: 03-30-2022 Patient encounter procedure Carla Burdick MD Work Phone: Cardiology Comment on above: History of prostheti c aortic valve replacement (Primary Dx); Paroxysmal atrial fibrillation (HCC); Ascending aorta dilatation (HCC); Chronic diastolic congestive heart failure (HCC); Primary hypertension; Hyperlipidemia with target LDL less than 70; SSS (sick sinus syndrome) (HCC); S/P placement of cardiac pacemaker; Bilateral carotid artery stenosis Start: 03-24-2022 Follow-up encounter Yin Joseph MD Work Phone: [facility] Start: 03-24-2022 Pacemaker Remote F/U Yin Joseph MD Work Phone: [facility] Department Start: 03-23-2022 Telephone encounter Brianna Betancourt Cardiology Comment on above: Trimming Cutter Machine - O ther (CHF) Start: 03-21-2022 Telephone encounter Juan Diego Carroll MD Work Phone: [facility] Comment on above: Appointment Start: 03-20-2022 Admission to establishment Sheridan manning RN Sample Case [facility] Comment on above: Transition Of Care ( Tcm readmission) Start: 03-20-2022 ambulatory Sheridan Cervantes RN [facility] Start: 03-19-2022 End: 03-19-2022 Patient encounter procedure Doreen eL PA-C Work Phone: [facility] Medicine [place] Comment on above: 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); Aortic prosthetic valve regurgitation, subsequent encounter; H/O rheumatic heart disease; Atrial fibrillation, unspecified type (HCC); Presence of Watchman left atrial appendage closure device; Anemia, blood loss; Primary hypertension Start: 03-05-2022 [facility]ulatory [facility] Comment on above: ABDIEL -; Watchmen Start: 03-05-2022 Follow-up encounter Sheridan Cervantes RN [facility] Comment on above: Transition Of Care ( Tcm follow up) Start: 03-03-2022 Follow-up encounter Lili Fay MD Work Phone: [facility] Start: 03-03-2022 End: 03-03-2022 Patient encounter procedure Lili Fay MD Work Phone: [facility] Department Comment on above: Longstanding persist ent atrial fibrillation (HCC) (Primary Dx); Presence of Watchman left atrial appendage closure device Paroxysmal atrial fi brillation (HCC); Presence of Watchman left atrial appendage closure device Start: 03-02-2022 Telephone encounter Saima England RN C ardiology Comment on above: Reminder Call (Trans esophageal Echo 03/03/22) Start: 02-25-2022 Patient Outreach Harika Tomas RN F [facility] [place] Comment on above: Transition Of Care ( [facility] D/C 02/24/2023 ) Start: 02-20-2022 End: 02-20-2022 Patient encounter procedure Doreen Le PA-C Work Phone: [facility] [place] Comment on above: Rectal bleeding (Nohemy stacie Dx); Anemia, blood loss; Diarrhea, unspecified type Start: 02-12-2022 Telephone encounter Chai Encinas MD Work Phone: General Surgery Comment on above: Procedure Follow Up (EGD completed on 01/02/2022) Start: 02-09-2022 Orders Only Candi Juarez nd VOLUNTEER SERVICES ASSISTANT.SIGN BOARD ERECTOR Work Phone: Cardiology Comment on above: Paroxysmal atrial fi brillation (HCC) (Primary Dx); Presence of Watchman left atrial appendage closure device Start: 01-21-2022 Orders Only Candi Juarez nd VOLUNTEER SERVICES ASSISTANT.SIGN BOARD ERECTOR Work Phone: Cardiology Comment on above: Paroxysmal atrial fi brillation (HCC) (Primary Dx) Patient Question (OR YUSUF FOR ABDIEL AND ECG) Start: 01-19-2022 Refill Emilia Domínguez i, MD Work Phone: Cardiology Comment on above: Refill Request Start: 01-16-2022 End: 01-16-2022 Patient encounter procedure Doreen Le PA-C Work Phone: [facility] [place] Comment on above: Atrial fibrillation, unspecified type (HCC) (Primary Dx); Presence of Watchman left atrial appendage closure device; Herpes zoster without complication Start: 01-09-2022 ambulatory Chandler villalobos MD Work Phone: Cardiology Comment on above: Patient Education (E PS-Watchman) Start: 01-09-2022 Follow-up encounter Randy Torrez MD Work Phone: [facility] Start: 01-09-2022 End: 01-09-2022 Patient encounter procedure Randy Torrez MD Work Phone: [facility] Department Comment on above: Atrial fibrillation, unspecified type (HCC) (Primary Dx); Gastrointestinal hemorrhage, unspecified gastrointestinal hemorrhage type; Anemia due to chronic blood loss; Other fatigue; SOB (shortness of breath) Start: 01-02-2022 End: 01-02-2022 Subsequent hospital visit by physician Chai Encinas MD Work Phone: [facility] Comment on above: Acute blood loss ane miguel [D62] Start: 01-01-2022 Telephone encounter Chai Encinas MD Work Phone: General Surgery Comment on above: 01-02-2022 [facility] Start: 01-01-2022 End: 01-01-2022 Patient encounter procedure Chai Encinas MD Work Phone: General Surgery Comment on above: Anemia, blood loss ( Primary Dx); Acute blood loss anemia; Heme + stool; Sludge in gallbladder; Epigastric pain; Duodenal ulcer with hemorrhage Start: 12-30-2021 End: 12-30-2021 Patient encounter procedure [facility] Start: 12-29-2021 Telephone encounter Doreen Le PA-C Work Phone: [facility] [place] Comment on above: Orders Start: 12-27-2021 ambulatory Doreen Dodge on PA-C Work Phone: Family [facility] [place] Comment on above: Fatigue Start: 12-26-2021 ambulatory Doreen Dodge on PA-C Work Phone: Family Medicine [place] Comment on above: Anemia - hemoglobin Start: 12-25-2021 Telephone encounter Chandler ortiz MD Work Phone: Cardiology Comment on above: Patient Question (ME DICATION DECREASE) Start: 12-19-2021 Telephone encounter Doreen Le PA-C Work Phone: [facility] [place] Comment on above: Rectal Problem Start: 12-15-2021 End: 12-15-2021 Subsequent hospital visit by physician David [facility] [place] Work Phone: Radiology Comment on above: Ischial bursitis of left side [M70.72] Start: 12-15-2021 End: 12-15-2021 Patient encounter procedure Doreen Le PA-C Work Phone: [facility] [place] Comment on above: Renal mass, right (P rimary Dx); History of pulmonary embolism; Primary hypertension; Hyperlipidemia with target LDL less than 70; Dilated cardiomyopathy ([facility]); SSS (sick sinus syndrome) ([facility]); Chronic diastolic congestive heart failure (HCC); Ascending aorta dilatation ([facility]); Pedro aneurysm of anterior communicating artery; Bilateral carotid artery stenosis; Chronic anticoagulation; Duodenal ulcer; Esophageal stenosis; Hypomagnesemia; Stage 3 chronic renal impairment associated with type 2 diabetes mellitus ([facility]); History of ischemic colitis; Adenomatous polyp of descending colon; PAD (peripheral artery disease) ([facility]); Type 2 diabetes mellitus with diabetic peripheral angiopathy without gangrene, without long-term current use of insulin ([facility]); Heme + stool; Epigastric pain; Blood loss anemia; Chronic insomnia; Ischial bursitis of left side Start: 12-11-2021 Follow-up encounter Yin Joseph MD Work Phone: [facility] Start: 12-11-2021 Pacemaker Remote F/U Yin Joseph MD Work Phone: [facility] Department Start: 12-04-2021 Refill Chandler villalobos MD Work Phone: Cardiology Start: 12-03-2021 Telephone encounter Chandler ortiz MD Work Phone: Cardiology Comment on above: Patient Question (ME DICATION QUESTION - XARELTO) Start: 11-27-2021 Orders Only Na Ramirez VOLUNTEER SERVICES ASSISTANT.SIGN BOARD ERECTOR Work Phone: Vascular Surgery Comment on above: PAD (peripheral jennifer ry disease) (HCC) (Primary Dx); PVD (peripheral vascular disease) (HCC) Start: 11-26-2021 End: 11-26-2021 Office outpatient visit 25 minutes Na Ramirez VOLUNTEER SERVICES ASSISTANT.SIGN BOARD ERECTOR Work Phone: Vascular Surgery Comment on above: PAD (peripheral jennifer ry disease) (HCC) (Primary Dx); Anemia due to chronic illness Start: 10-22-2021 Refill Yin Joseph MD Work Phone: Vascular Surgery Comment on above: Refill Request Start: 09-24-2021 Follow-up encounter Yin Joseph MD Work Phone: [facility] Start: 09-24-2021 Pacemaker Remote F/U Yin Joseph MD Work Phone: [facility] Department Start: 09-24-2021 Telephone encounter Chai Encinas MD Work Phone: General Surgery Comment on above: Appointment Cancelle d Start: 09-23-2021 Telephone encounter Chandler ortiz MD Work Phone: Cardiology Comment on above: Appointment Reschedu led (Due to change in physician's schedule) Start: 02-14-2021 End: 02-15-2021 ambulatory PROVIDER NOT IN SYSTEM [facility] Start: 01-23-2019 End: 01-23-2019 Refill Lizeth Mabry [facility] Cardiology Start: 01-19-2019 End: 01-19-2019 Office outpatient visit 15 minutes Mars Chung Work Phone: [facility] Cardiology Comment on above: Persistent atrial fi brillation (Primary Dx); shelter current use of antiarrhythmic medical therapy; Moderate mitral regurgitation; Status post aortic valve replacement with tissue valve Start: 01-08-2014 End: 09-12-2021 Patient encounter status CARMELINA Rey HAMLIN Work Phone: [facility] Procedures Date Procedure Procedure Detail Performing Clinician Start: 11-08-2023 Ecg routine ecg w/least 12 lds i&r only [facility] Provider Start: 10-18-2023 Radiologic exam chest 2 views Doreen Claudia Le PA-C Work Phone: Start: 10-18-2023 Ecg routine ecg w/least 12 lds i&r only [facility] Provider Start: 10-11-2023 PACEMAKER REMOTE CHECK Yin Joseph MD Work Phone: Start: 07-05-2023 INFLUENZA A&B MOLECULAR (POC) Bijan Wei MD Work Phone: Start: 06-01-2023 Radex foot complete minimum 3 views Doreen flores Rey KING-C Work Phone: Start: 04-30-2023 Ct thorax w/o contrast material M Dusty KING-C Work Phone: Start: 04-12-2023 Radex fingr minimum 2 views Doreen Taylor John ramirez PA-C Work Phone: Start: 03-23-2023 PACEMAKER REMOTE CHECK Yin Joseph MD Work Phone: Start: 12-22-2022 PACEMAKER REMOTE CHECK Yin Joseph MD Work Phone: Start: 10-05-2022 Us retroperitoneal real time w/image complete Brayan Chicas MD Work Phone: Start: 09-21-2022 PACEMAKER REMOTE CHECK Yin Joseph MD Work Phone: Start: 06-23-2022 PACEMAKER REMOTE CHECK Yin Joseph MD Work Phone: Start: 04-09-2022 Urnls dip stick/tablet rgnt auto w/o microscopy Brayan Chicas MD Work Phone: Start: 03-24-2022 PACEMAKER REMOTE CHECK Yin Joseph MD Work Phone: Start: 03-19-2022 Ecg routine ecg w/least 12 lds w/i&r [facility] Provider Start: 03-03-2022 PACEMAKER CLINIC CHECK Lili Fay MD Work Phone: Start: 03-03-2022 Echo transthorc r-t 2d w/wo m-mode rec f-up/lmtd Candi Beauchamp VOLUNTEER SERVICES ASSISTANT.SIGN BOARD ERECTOR Work Phone: Start: 01-09-2022 PACEMAKER CLINIC CHECK Randy Foreman Work Phone: Start: 01-09-2022 Antibody screen rbc each serum technique Chandler Swan MD Work Phone: Start: 01-09-2022 Basic metabolic panel calcium total Mike Swan MD Work Phone: Start: 01-02-2022 Esophagogastroduodenoscopy transoral diagnostic Chai Encinas MD Work Phone: Start: 12-15-2021 Radex hip unilateral with pelvis 2-3 views M Claudia Le PA-C Work Phone: Start: 12-15-2021 Adult depression screening assessment CARMELINA Le PA-C Work Phone: Start: 12-11-2021 PACEMAKER REMOTE CHECK Yin Joseph MD Work Phone: Start: 09-24-2021 PACEMAKER REMOTE CHECK Yin Joseph MD Work Phone: Start: 07-18-2019 Adult depression screening assessment Chandler Swan MD Work Phone: Plan of Treatment Date Care Activity Detail Author Start: 11-26-2033 Urine microalbumin profile DTaP,Tdap,Td Vaccine (3 - Td or Tdap) [facility] Start: 12-12-2025 Complete blood count Hemoglobin/Hematocrit [facility] Start: 12-12-2025 Creatinine measurement Serum Creatinine [facility] Start: 12-11-2025 Complete blood count Hemoglobin/Hematocrit [facility] Start: 12-11-2025 Creatinine measurement Serum Creatinine [facility] Start: 12-11-2025 Hepatitis B screening Urine Albumin:Creatinine Ratio [facility] Start: 11-20-2025 Creatinine measurement Serum Creatinine [facility] Start: 11-13-2025 Creatinine measurement Serum Creatinine [facility] Start: 11-03-2025 BP Controlled (<130/80) BP Controlled (<130/80) [facility] in Start: 11-03-2025 Creatinine measurement Serum Creatinine [facility] Start: 10-31-2025 Annual PCP Team Chronic Disease Visit Annual PCP Team Chronic Disease Visit [facility] Start: 10-31-2025 Complete blood count Hemoglobin/Hematocrit [facility] Start: 10-31-2025 Creatinine measurement Serum Creatinine [facility] Start: 10-10-2025 Complete blood count Hemoglobin/Hematocrit [facility] Start: 10-03-2025 Hepatitis B screening Urine Albumin:Creatinine Ratio [facility] Start: 10-02-2025 Hepatitis B surface antibody level LDL Cholesterol [facility] Start: 07-07-2025 Annual PCP Team Chronic Disease Visit Annual PCP Team Chronic Disease Visit [facility] Start: 07-07-2025 Anxiety Screening Anxiety Screening [facility] Comment on above: Postponed from 1963 (Declined at t his time) Start: 07-07-2025 Covid-19 Vaccine () Covid-19 Vaccine () [facility] Comment on above: Postponed from 03/05/2024 (Declined at t his time) Start: 07-07-2025 Creatinine measurement Serum Creatinine [facility] Start: 07-07-2025 Hepatitis B screening Urine Albumin:Creatinine Ratio [facility] Start: 04-26-2025 Glaucoma screening Dilated Retinal Exam [facility] Start: 04-22-2025 Hemoglobin A1c measurement HbA1C [facility] Start: 04-03-2025 Hemoglobin A1c measurement HbA1C [facility] Start: 03-26-2025 End: 03-26-2025 Patient encounter procedure 03/26/2025 10:00 AM EDT Office Visit Cardiology [address] [place] [address] Carla Burdick MD [address] [place] [address] 4 month follow up - ECHO prior Cardiology Comment on above: 4 month follow up - ECHO prior Start: 03-19-2025 End: 03-19-2025 Patient encounter procedure 03/19/2025 1:50 PM EDT Office Visit Cardiology [address] [place] [address] ECHO Cardiology Comment on above: ECHO Start: 02-26-2025 End: 02-26-2025 Patient encounter procedure 02/26/2025 2:20 PM EDT Office Visit Cardiology [address] [place] [address] Carla Burdick MD [address] [place] [address] f/u Cardiology Comment on above: f/u Start: 02-02-2025 Creatinine measurement Serum Creatinine [facility] Start: 02-02-2025 Hepatitis B surface antibody level LDL Cholesterol [facility] Start: 01-23-2025 End: 01-23-2025 Patient encounter procedure 01/23/2025 10:00 AM EDT Office Visit Cardiology [address] [place] [address] Albin Gu APRN.SIGN BOARD ERECTOR [address] [place] [address] CHF FOLLOW UP Cardiology Comment on above: CHF FOLLOW UP Start: 01-10-2025 End: 01-10-2025 Patient encounter procedure Family Medicine Nancy Comment on above: 6 month follow up (SHABBIR from Rey) 6 month follow up Start: 01-04-2025 Hemoglobin A1c measurement HbA1C [facility] Start: 01-01-2025 End: 04-02-2025 Basic metabolic 2000 panel - Serum or Plasma BASIC METABOLIC PANEL Lab Routine Chronic diastolic (congestive) heart failure (HCC) Expected: 01/01/2025, Expires: 04/02/2025 [facility] Comment on above: Expected: 01/01/2025, Expires: Start: 01-01-2025 End: 04-02-2025 Natriuretic peptide.B prohormone N-Terminal [Mass/volume] in Serum or Plasma NT PRO BNP Lab Routine Chronic diastolic (congestive) heart failure (HCC) Expected: 01/01/2025, Expires: 04/02/2025 [facility] Comment on above: Expected: 01/01/2025, Expires: Start: 01-01-2025 End: 01-01-2025 Patient encounter procedure 01/01/2025 11:00 AM EDT Office Visit Cardiology [address] [place] [address] Carla Burdick MD [address] [id number] 1 month follow up Cardiology Comment on above: 1 month follow up Start: 12-21-2024 End: 12-21-2024 Patient encounter procedure 12/21/2024 9:00 AM EDT Office Visit Cardiology [address], [place] [id number] Albin Gu, VOLUNTEER SERVICES ASSISTANT.SIGN BOARD ERECTOR [address], [place] [id number] CHF Cardiology Comment on above: CHF Start: 12-20-2024 End: 12-20-2024 Patient encounter procedure Vascular Surgery Comment on above: MESENTERIC AND HOSPITAL FOLLOW UP Start: 12-19-2024 End: 03-20-2025 Basic metabolic 2000 panel - Serum or Plasma BASIC METABOLIC PANEL Lab Routine Chronic diastolic congestive heart failure (HCC) Expected: 12/19/2024, Expires: 03/20/2025 [facility] Work Phone: Comment on above: Expected: 12/19/2024, Expires: Start: 12-18-2024 End: 12-18-2024 Patient encounter procedure 12/18/2024 11:00 AM EDT Office Visit Cardiology [address], [place] [id number] Albin Gu, VOLUNTEER SERVICES ASSISTANT.SIGN BOARD ERECTOR [address], [place] [id number] CHF Cardiology Comment on above: CHF Start: 12-11-2024 End: 12-11-2024 Patient encounter procedure 12/11/2024 2:30 PM EDT Office Visit Cardiology [address] [place], [place] [id number] Allison Toledo APRN.SIGN BOARD ERECTOR [address] [place] [address] follow u Cardiology Comment on above: follow u Start: 12-06-2024 Annual PCP Team Chronic Disease Visit Annual PCP Team Chronic Disease Visit [facility] Start: 12-06-2024 BP Controlled (<130/80) BP Controlled (<130/80) [facility] Start: 12-04-2024 End: 12-04-2024 Patient encounter procedure 12/04/2024 2:00 PM EDT Office Visit Cardiology [address] [place], [place] [address] Carla Burdick MD [address] [place], [place] [id number] 1 month follow up Cardiology Comment on above: 1 month follow up Start: 12-01-2024 Creatinine measurement Serum Creatinine [facility] Start: 11-21-2024 Annual PCP Team Chronic Disease Visit Annual PCP Team Chronic Disease Visit [facility] Start: 11-21-2024 BP Controlled (<130/80) BP Controlled (<130/80) [facility] Start: 11-21-2024 End: 11-21-2024 Patient encounter procedure 11/21/2024 10:00 AM EDT Office Visit Cardiology [address] [place] [address] Albin Gu, VOLUNTEER SERVICES ASSISTANT.SIGN BOARD ERECTOR [address] [place] [address] CHF Cardiology Comment on above: CHF Start: 11-20-2024 End: 11-20-2024 Patient encounter procedure 11/20/2024 8:00 AM EDT Office Visit Cardiology [address] [place] [address] Carla Burdick MD [address] [place] [address] follow up with labs per Dr Burdick's phone note Cardiology Comment on above: follow up with labs per Dr Burdick's da ne note Start: 11-18-2024 Complete blood count Hemoglobin/Hematocrit [facility] Start: 11-18-2024 Creatinine measurement Serum Creatinine [facility] Start: 11-15-2024 End: 02-14-2025 Basic metabolic 2000 panel - Serum or Plasma BASIC METABOLIC PANEL Lab Routine Dyspnea on exertion Chronic diastolic congestive heart failure (HCC) Expected: 11/15/2024, Expires: 02/14/2025 [facility] Work Phone: Comment on above: Expected: 11/15/2024, Expires: Start: 11-15-2024 End: 02-14-2025 Natriuretic peptide.B prohormone N-Terminal [Mass/volume] in Serum or Plasma NT PRO BNP Lab Routine Dyspnea on exertion Chronic diastolic congestive heart failure (HCC) Expected: 11/15/2024, Expires: 02/14/2025 [facility] Comment on above: Expected: 11/15/2024, Expires: Start: 11-15-2024 End: 11-15-2024 ambulatory 11/15/2024 9:00 AM EDT OT/PT/Speech Visit [facility] [address] [place] [address] Frank Null, PT [address] [place] [address] Physical deconditioning [R53.81] [facility] Comment on above: Physical deconditioning [R53.81] Start: 11-11-2024 Complete blood count Hemoglobin/Hematocrit [facility] Start: 11-11-2024 Creatinine measurement Serum Creatinine [facility] Start: 11-09-2024 Complete blood count Hemoglobin/Hematocrit [facility] Start: 11-09-2024 Creatinine measurement Serum Creatinine [facility] Start: 11-07-2024 End: 11-07-2024 ambulatory 11/07/2024 10:45 AM EDT OT/PT/Speech Visit [facility] [address] [place] [address] Adriana Wilson OTR/L [address] [place] [address] Physical deconditioning [R53.81] [facility] Comment on above: Physical deconditioning [R53.81] Start: 11-06-2024 End: 11-06-2024 Patient encounter procedure 11/06/2024 2:40 PM EDT Office Visit Cardiology [address] [place] [address] Carla Burdick MD [address] [facility] [address] [place] [address] hospital f/u - acute on chronic CHF Cardiology Comment on above: hospital f/u - acute on chronic CHF Start: 11-06-2024 End: 02-05-2025 Basic metabolic 2000 panel - Serum or Plasma BASIC METABOLIC PANEL Lab Routine Chronic diastolic (congestive) heart failure (HCC) Expected: 11/06/2024, Expires: 02/05/2025 [facility] Work Phone: Comment on above: Expected: 11/06/2024, Expires: Start: 11-06-2024 End: 02-05-2025 Natriuretic peptide.B prohormone N-Terminal [Mass/volume] in Serum or Plasma NT PRO BNP Lab Routine Chronic diastolic (congestive) heart failure (HCC) Expected: 11/06/2024, Expires: 02/05/2025 [facility] Comment on above: Expected: 11/06/2024, Expires: Start: 11-03-2024 Annual PCP Team Chronic Disease Visit Annual PCP Team Chronic Disease Visit [facility] Start: 11-03-2024 End: 02-02-2025 Basic metabolic 2000 panel - Serum or Plasma BASIC METABOLIC PANEL Lab Routine Chronic diastolic congestive heart failure (HCC) Expected: 11/03/2024, Expires: 02/02/2025 [facility] Work Phone: Comment on above: Expected: 11/03/2024, Expires: Start: 10-31-2024 Complete blood count Hemoglobin/Hematocrit [facility] Start: 10-31-2024 Creatinine measurement Serum Creatinine [facility] Start: 10-26-2024 End: 10-26-2024 Patient encounter procedure 10/26/2024 9:00 AM EDT Office Visit Cardiology [address] [place] [address] Albin Gu APRN.SIGN BOARD ERECTOR [address] [place] [address] I50.32 I10 I49.5 I48.11 Cardiology Comment on above: I50.32 I10 I49.5 I48.11 Start: 10-25-2024 End: 10-25-2024 Patient encounter procedure 10/25/2024 1:30 PM EDT Office Visit Vascul[facility] Surgery [address] [place], [place] [id number] Bilateral carotid artery stenosis [I65.23] [facility] Comment on above: Bilateral carotid artery stenosis [I65.2 3] Start: 10-24-2024 End: 10-24-2024 Patient encounter procedure 10/24/2024 11:00 AM EDT Office Visit Cardiology [address] [place] [address] Albin Gu APRN.SIGN BOARD ERECTOR [address] [place] [address] CHF Cardiology Comment on above: CHF Start: 10-23-2024 End: 10-23-2024 Patient encounter procedure 10/23/2024 2:00 PM EDT Office Visit Family Medicine [facility] [address] [place], [place] [id number] Deysi Nicholson APRN.SIGN BOARD ERECTOR [address] [place], [place] [id number] Post hospital visit Family Medicine [facility] Comment on above: Post hospital visit Start: 10-17-2024 Annual PCP Team Chronic Disease Visit Annual PCP Team Chronic Disease Visit [facility] Start: 10-17-2024 End: 10-17-2024 Patient encounter procedure Cardiology Comment on above: medtronic ep eval medtronic Start: 10-15-2024 Creatinine measurement Serum Creatinine [facility] Start: 07-05-2024 Advance Directive Discussion Advance Directive Discussion [facility] Start: 07-05-2024 Medicare Advantage Annual Wellness Visit Medicare Advantage Annual Wellness Visit [facility] Start: 06-01-2024 Annual PCP Team Chronic Disease Visit Annual PCP Team Chronic Disease Visit [facility] Start: 06-01-2024 BP Controlled (<130/80) BP Controlled (<130/80) [facility] Start: 04-16-2024 Glaucoma screening Dilated Retinal Exam [facility] Start: 04-16-2024 Hepatitis C antibody, confirmatory test Dilated Retinal Exam [facility] Start: 04-12-2024 Annual PCP Team Chronic Disease Visit Annual PCP Team Chronic Disease Visit [facility] Start: 04-12-2024 Covid-19 Vaccine () Covid-19 Vaccine () [facility] Comment on above: Postponed from 03/05/2023 (Declined at t his time) Start: 04-12-2024 Shingrix Vaccine (2 of 2) Shingrix Vaccine (2 of 2) [facility] Comment on above: Postponed from 01/03/2019 (Insurance Cov erage) Start: 04-07-2024 Complete blood count Hemoglobin/Hematocrit [facility] Start: 04-07-2024 Creatinine measurement Serum Creatinine [facility] Start: 04-07-2024 Hemoglobin/Hematocrit Hemoglobin/Hematocrit [facility] Start: 04-07-2024 Hepatitis B screening Urine Albumin:Creatinine Ratio [facility] Start: 04-07-2024 Hepatitis B surface antibody level LDL Cholesterol [facility] Start: 04-07-2024 Serum Creatinine Serum Creatinine [facility] Start: 04-07-2024 End: 04-07-2024 Patient encounter procedure 04/07/2024 9:00 AM EDT Office Visit Cardiology [address] [place] [address] Albin Gu APRN.SIGN BOARD ERECTOR [address] [place] [address] I50.32 I10 I49.5 I48.11 I50.21 Cardiology Comment on above: I50.32 I10 I49.5 I48.11 I50.21 Start: 04-06-2024 End: 04-06-2024 Patient encounter procedure 04/06/2024 9:00 AM EDT Office Visit Cardiology [address] [place] [address] Albin Gu APRN.SIGN BOARD ERECTOR [address] [place] [address] I50.32 I10 I49.5 I48.11 I50.21 Cardiology Comment on above: I50.32 I10 I49.5 I48.11 I50.21 Start: 03-05-2024 Covid-19 Vaccine ( season) Covid-19 Vaccine ( season) [facility] Start: 03-05-2024 Covid-19 Vaccine () Covid-19 Vaccine () [facility] Start: 03-05-2024 Influenza vaccination Influenza Vaccine [facility] Start: 02-07-2024 End: 05-08-2024 Basic metabolic 2000 panel - Serum or Plasma BASIC METABOLIC PANEL Lab Routine Chronic kidney disease, unspecified CKD stage Expected: 02/07/2024, Expires: 05/08/2024 [facility] Work Phone: Comment on above: Expected: 02/07/2024, Expires: Start: 02-07-2024 End: 05-08-2024 Natriuretic peptide.B prohormone N-Terminal [Mass/volume] in Serum or Plasma NT PRO BNP Lab Routine Chronic diastolic congestive heart failure (HCC) Expected: 02/07/2024, Expires: 05/08/2024 [facility] Work Phone: Comment on above: Expected: 02/07/2024, Expires: Start: 02-07-2024 End: 02-07-2024 Patient encounter procedure 02/07/2024 8:00 AM EDT Office Visit [facility] [place] [address] [place] [address] Doreen Le PA-C [address] [place] [address] 3 month follow up [facility] [place] Comment on above: 3 month follow up Start: 01-17-2024 End: 04-17-2024 Comprehensive metabolic 2000 panel - Serum or Plasma COMPREHENSIVE METABOLIC PANEL Lab Routine Chronic diastolic (congestive) heart failure (HCC) Expected: 01/17/2024, Expires: 04/17/2024 [facility] Comment on above: Expected: 01/17/2024, Expires: Start: 01-17-2024 End: 04-17-2024 Lipid 1996 panel - Serum or Plasma LIPID PANEL BASIC Lab Routine Hyperlipidemia with target LDL less than 70 Expected: 01/17/2024, Expires: 04/17/2024 [facility] Work Phone: Comment on above: Expected: 01/17/2024, Expires: Start: 01-17-2024 End: 04-17-2024 Natriuretic peptide.B prohormone N-Terminal [Mass/volume] in Serum or Plasma NT PRO BNP Lab Routine Chronic diastolic (congestive) heart failure (HCC) Expected: 01/17/2024, Expires: 04/17/2024 [facility] Comment on above: Expected: 01/17/2024, Expires: Start: 01-17-2024 End: 01-17-2024 Patient encounter procedure 01/17/2024 9:20 AM EDT Office Visit Cardiology [address] [place] [address] Carla Burdick MD [address] [place] [address] 6 month follow up Cardiology Comment on above: 6 month follow up Start: 01-09-2024 Urine microalbumin profile [facility] Start: 01-08-2024 ANNUAL PCP TEAM CHRONIC DISEASE VISIT ANNUAL PCP TEAM CHRONIC DISEASE VISIT [facility] Start: 12-02-2023 End: 03-02-2024 CBC W Auto Differential panel - Blood COMPLETE BLOOD COUNT AND DIFFERENTIAL Lab Routine Borderline anemia Acute systolic congestive heart failure (HCC) Expected: 12/02/2023, Expires: 03/02/2024 [facility] Work Phone: Comment on above: Expected: 12/02/2023, Expires: Start: 12-02-2023 End: 03-02-2024 Iron and Iron binding capacity panel - Serum or Plasma IRON AND TIBC Lab Routine Borderline anemia Expected: 12/02/2023, Expires: 03/02/2024 [facility] Comment on above: Expected: 12/02/2023, Expires: Start: 11-30-2023 End: 11-30-2023 Patient encounter procedure 11/30/2023 11:00 AM EDT Office Visit Cardiology [address], [place] [id number] Albin Gu, VOLUNTEER SERVICES ASSISTANT.SIGN BOARD ERECTOR [address], [place] [id number] NEW CHF/post hospitalization Cardiology Comment on above: NEW CHF/post hospitalization Start: 11-25-2023 End: 02-24-2024 Basic metabolic 2000 panel - Serum or Plasma BASIC METABOLIC PANEL Lab Routine Chronic diastolic congestive heart failure (HCC) Expected: 11/25/2023, Expires: 02/24/2024 [facility] Work Phone: Comment on above: Expected: 11/25/2023, Expires: Start: 11-25-2023 End: 11-25-2023 Patient encounter procedure 11/25/2023 10:00 AM EDT Office Visit Cardiology [address], [place] [id number] Albin Gu, VOLUNTEER SERVICES ASSISTANT.SIGN BOARD ERECTOR [address], [place] [id number] NEW CHF/post hospitalization Cardiology Comment on above: NEW CHF/post hospitalization Start: 11-24-2023 End: 11-24-2023 ambulatory 11/24/2023 11:00 AM EDT Visit (SP) Office Hematology/Oncology [address] [place] [address] [place] [address] [place] [address] 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] Hematology/Oncology Comment on above: Iron deficiency anemia secondary to inad equate dietary iron intake [D50.8] Start: 11-22-2023 End: 02-21-2024 Renal function 2000 panel - Serum or Plasma RENAL FUNCTION PANEL Lab Routine Hyponatremia Hypokalemia Expected: 11/22/2023, Expires: 02/21/2024 [facility] Work Phone: Comment on above: Expected: 11/22/2023, Expires: Start: 11-22-2023 End: 11-22-2023 Patient encounter procedure 11/22/2023 9:00 AM EDT Office Visit [facility] [address] [place] [address] Deysi Nicholson APRN.SIGN BOARD ERECTOR [address] [place] [address] [facility] Follow up [facility] Comment on above: [facility] Follow up Start: 11-12-2023 End: 02-11-2024 Basic metabolic 2000 panel - Serum or Plasma BASIC METABOLIC PANEL Lab Routine Stage 3 chronic kidney disease, unspecified whether stage 3a or 3b CKD (HCC) Expected: 11/12/2023, Expires: 02/11/2024 [facility] Work Phone: Comment on above: Expected: 11/12/2023, Expires: Start: 11-09-2023 End: 11-09-2023 Patient encounter procedure Vasculary Surgery Comment on above: Carotid artery stenosis, asymptomatic, b ilateral [I65.23] PVD (peripheral vasc ular disease) with claudication (HCC) [I73.9] follow up after test ing Start: 11-08-2023 End: 11-08-2023 Patient encounter procedure 11/08/2023 4:30 PM EDT Office Visit Cardiology [address] [place] [address] Bere Boykin APRN.SIGN BOARD ERECTOR [address] [place] [address] Follow up Cardiology Comment on above: Follow up Start: 11-04-2023 End: 11-04-2023 Patient encounter procedure 11/04/2023 8:00 AM EDT Office Visit [facility] [address] [place] [address] Doreen Le PA-C [address] [place] [address] 6 mo follow up [facility] Comment on above: 6 mo follow up Start: 11-02-2023 End: 02-01-2024 Basic metabolic 2000 panel - Serum or Plasma BASIC METABOLIC PANEL Lab Routine Acute systolic congestive heart failure (HCC) Expected: 11/02/2023, Expires: 02/01/2024 [facility] Comment on above: Expected: 11/02/2023, Expires: Start: 10-18-2023 End: 01-17-2024 25-hydroxyvitamin D3 [Mass/volume] in Serum or Plasma VITAMIN D 25 HYDROXY Lab Routine Vitamin D deficiency Expected: 10/18/2023, Expires: 01/17/2024 [facility] Work Phone: Comment on above: Expected: 10/18/2023, Expires: 4 Start: 10-18-2023 End: 01-17-2024 Basic metabolic 2000 panel - Serum or Plasma BASIC METABOLIC PANEL Lab Routine Acute systolic CHF (congestive heart failure) (HCC) Expected: 10/18/2023, Expires: 01/17/2024 [facility] Work Phone: Comment on above: Expected: 10/18/2023, Expires: 4 Start: 10-18-2023 End: 01-17-2024 CBC panel - Blood by Automated count COMPLETE BLOOD COUNT Lab Routine Acute systolic CHF (congestive heart failure) (HCC) Expected: 10/18/2023, Expires: 01/17/2024 [facility] Work Phone: Comment on above: Expected: 10/18/2023, Expires: Start: 10-18-2023 End: 01-17-2024 Natriuretic peptide.B prohormone N-Terminal [Mass/volume] in Serum or Plasma NT PRO BNP Lab Routine Acute systolic CHF (congestive heart failure) (HCC) Expected: 10/18/2023, Expires: 01/17/2024 [facility] Work Phone: Comment on above: Expected: 10/18/2023, Expires: Start: 10-15-2023 End: 01-14-2024 Basic metabolic 2000 panel - Serum or Plasma BASIC METABOLIC PANEL Lab Routine 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) Dilated cardiomyopathy (HCC) Expected: 10/15/2023, Expires: 01/14/2024 [facility] Work Phone: Comment on above: Expected: 10/15/2023, Expires: Start: 10-15-2023 End: 01-14-2024 Natriuretic peptide.B prohormone N-Terminal [Mass/volume] in Serum or Plasma NT PRO BNP Lab Routine 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) Dilated cardiomyopathy (HCC) Expected: 10/15/2023, Expires: 01/14/2024 [facility] Work Phone: Comment on above: Expected: 10/15/2023, Expires: 4 Start: 10-07-2023 ANNUAL PCP TEAM CHRONIC DISEASE VISIT ANNUAL PCP TEAM CHRONIC DISEASE VISIT [facility] Start: 10-07-2023 Hemoglobin A1c measurement HbA1C [facility] Start: 10-07-2023 Hemoglobin A1c/Hemoglobin.total in Blood HbA1C [facility] Start: 10-06-2023 HEMOGLOBIN/HEMATOCRIT HEMOGLOBIN/HEMATOCRIT [facility] Start: 10-06-2023 Hepatitis B surface antibody level LDL CHOLESTEROL [facility] Start: 10-06-2023 SERUM CREATININE SERUM CREATININE [facility] Start: 09-29-2023 BP CONTROLLED (<130/80) BP CONTROLLED (<130/80) [facility] Start: 07-07-2023 ANNUAL PCP TEAM CHRONIC DISEASE VISIT ANNUAL PCP TEAM CHRONIC DISEASE VISIT [facility] Start: 07-05-2023 Advance Directive Discussion Advance Directive Discussion [facility] Start: 07-05-2023 Behavioral Health Screening Behavioral Health Screening [facility] Start: 07-05-2023 Depression Assessment Depression Assessment [facility] Start: 07-03-2023 Hemoglobin A1c/Hemoglobin.total in Blood HBA1C [facility] Start: 05-14-2023 HEMOGLOBIN/HEMATOCRIT HEMOGLOBIN/HEMATOCRIT [facility] Start: 05-14-2023 SERUM CREATININE SERUM CREATININE [facility] Start: 04-15-2023 HEMOGLOBIN/HEMATOCRIT HEMOGLOBIN/HEMATOCRIT [facility] Start: 04-14-2023 Hepatitis C antibody, confirmatory test DILATED RETINAL EXAM [facility] Start: 04-07-2023 End: 06-07-2023 ALBUMIN/CREAT RATIO RND UR ALBUMIN/CREAT RATIO RND UR Lab Routine Type 2 diabetes mellitus with diabetic peripheral angiopathy without gangrene, without long-term current use of insulin (HCC) Expected: 04/07/2023, Expires: 06/07/2023 [facility] Work Phone: Comment on above: Expected: 04/07/2023, Expires: 3 Start: 04-07-2023 End: 06-07-2023 CBC W Auto Differential panel - Blood CBC + DIFF Lab Routine Primary hypertension Gastroesophageal reflux disease without esophagitis Chronic renal failure, stage 3b (HCC) Expected: 04/07/2023, Expires: 06/07/2023 [facility] Work Phone: Comment on above: Expected: 04/07/2023, Expires: 3 Start: 04-07-2023 End: 06-07-2023 Comprehensive metabolic 2000 panel - Serum or Plasma COMP METABOLIC PANEL Lab Routine Primary hypertension Hyperlipidemia with target LDL less than 70 Gastroesophageal reflux disease without esophagitis Chronic renal failure, stage 3b (HCC) Type 2 diabetes mellitus with diabetic peripheral angiopathy without gangrene, without long-term current use of insulin (HCC) Expected: 04/07/2023, Expires: 06/07/2023 [facility] Work Phone: Comment on above: Expected: 04/07/2023, Expires: Start: 04-07-2023 End: 06-07-2023 Ferritin [Mass/volume] in Serum or Plasma FERRITIN BLD Lab Routine Iron 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 Expected: 04/07/2023, Expires: 06/07/2023 [facility] Work Phone: Comment on above: Expected: 04/07/2023, Expires: 3 Start: 04-07-2023 End: 06-07-2023 Hemoglobin A1c in Blood HGB A1C Lab Routine Type 2 diabetes mellitus with diabetic peripheral angiopathy without gangrene, without long-term current use of insulin (HCC) Expected: 04/07/2023, Expires: 06/07/2023 [facility] Work Phone: Comment on above: Expected: 04/07/2023, Expires: 3 Start: 04-07-2023 End: 06-07-2023 Iron and Iron binding capacity panel - Serum or Plasma IRON + TIBC Lab Routine 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 Expected: 04/07/2023, Expires: 06/07/2023 [facility] Work Phone: Comment on above: Expected: 04/07/2023, Expires: Start: 04-07-2023 End: 06-07-2023 Lipid 1996 panel - Serum or Plasma LIPID PANEL BASIC Lab Routine Hyperlipidemia with target LDL less than 70 Expected: 04/07/2023, Expires: 06/07/2023 [facility] Work Phone: Comment on above: Expected: 04/07/2023, Expires: 3 Start: 04-06-2023 3 comp foot exam completed DIABETIC FOOT EXAM [facility] Start: 04-06-2023 ANNUAL PCP TEAM CHRONIC DISEASE VISIT ANNUAL PCP TEAM CHRONIC DISEASE VISIT [facility] Start: 04-06-2023 Diabetic foot examination Diabetic Foot Exam [facility] Start: 04-06-2023 HEMOGLOBIN/HEMATOCRIT HEMOGLOBIN/HEMATOCRIT [facility] Start: 04-06-2023 SERUM CREATININE SERUM CREATININE [facility] Start: 03-22-2023 HEMOGLOBIN/HEMATOCRIT HEMOGLOBIN/HEMATOCRIT [facility] Start: 03-22-2023 SERUM CREATININE SERUM CREATININE [facility] Start: 03-21-2023 HEMOGLOBIN/HEMATOCRIT HEMOGLOBIN/HEMATOCRIT [facility] Start: 03-21-2023 SERUM CREATININE SERUM CREATININE [facility] Start: 03-20-2023 HEMOGLOBIN/HEMATOCRIT HEMOGLOBIN/HEMATOCRIT [facility] Start: 03-20-2023 SERUM CREATININE SERUM CREATININE [facility] Start: 03-19-2023 ANNUAL PCP TEAM CHRONIC DISEASE VISIT ANNUAL PCP TEAM CHRONIC DISEASE VISIT [facility] Start: 03-19-2023 HEMOGLOBIN/HEMATOCRIT HEMOGLOBIN/HEMATOCRIT [facility] Start: 03-19-2023 SERUM CREATININE SERUM CREATININE [facility] Start: 03-05-2023 End: 09-29-2023 Echocardiography ECHO Cardiology Routine History of prosthetic aortic valve replacement H/O rheumatic heart disease Expected: 03/05/2023, Expires: 09/29/2023 [facility] Work Phone: Comment on above: Expected: 03/05/2023, Expires: Start: 03-05-2023 Influenza vaccination [facility] Start: 02-27-2023 HEMOGLOBIN/HEMATOCRIT HEMOGLOBIN/HEMATOCRIT [facility] Start: 02-27-2023 SERUM CREATININE SERUM CREATININE [facility] Start: 02-24-2023 HEMOGLOBIN/HEMATOCRIT HEMOGLOBIN/HEMATOCRIT [facility] Start: 02-24-2023 SERUM CREATININE SERUM CREATININE [facility] Start: 02-23-2023 HEMOGLOBIN/HEMATOCRIT HEMOGLOBIN/HEMATOCRIT [facility] Start: 02-22-2023 SERUM CREATININE SERUM CREATININE [facility] Start: 02-20-2023 ANNUAL PCP TEAM CHRONIC DISEASE VISIT ANNUAL PCP TEAM CHRONIC DISEASE VISIT [facility] Start: 02-17-2023 HEMOGLOBIN/HEMATOCRIT HEMOGLOBIN/HEMATOCRIT [facility] Start: 01-16-2023 ANNUAL PCP TEAM CHRONIC DISEASE VISIT ANNUAL PCP TEAM CHRONIC DISEASE VISIT [facility] Start: 01-09-2023 HEMOGLOBIN/HEMATOCRIT HEMOGLOBIN/HEMATOCRIT [facility] Start: 01-09-2023 SERUM CREATININE SERUM CREATININE [facility] Start: 01-01-2023 BP CONTROLLED (<130/80) BP CONTROLLED (<130/80) [facility] in Start: 12-29-2022 HEMOGLOBIN/HEMATOCRIT HEMOGLOBIN/HEMATOCRIT [facility] Start: 12-26-2022 HEMOGLOBIN/HEMATOCRIT HEMOGLOBIN/HEMATOCRIT [facility] Start: 12-16-2022 Hepatitis B screening URINE ALBUMIN:CREATININE RATIO [facility] Start: 12-15-2022 Adult depression screening assessment DEPRESSION SCREENING [facility] Start: 12-15-2022 ANNUAL PCP TEAM CHRONIC DISEASE VISIT ANNUAL PCP TEAM CHRONIC DISEASE VISIT [facility] Start: 12-15-2022 BP CONTROLLED (<130/80) BP CONTROLLED (<130/80) [facility] in Start: 12-15-2022 HEMOGLOBIN/HEMATOCRIT HEMOGLOBIN/HEMATOCRIT [facility] Start: 12-15-2022 Hepatitis B surface antibody level LDL CHOLESTEROL [facility] Start: 12-03-2022 DEPRESSION ASSESSMENT DEPRESSION ASSESSMENT [facility] Comment on above: Postponed from 07/05/2022 (Declined at t his time) Start: 11-28-2022 HEMOGLOBIN/HEMATOCRIT HEMOGLOBIN/HEMATOCRIT [facility] Start: 11-28-2022 SERUM CREATININE SERUM CREATININE [facility] Start: 10-06-2022 End: 12-06-2022 Iron and Iron binding capacity panel - Serum or Plasma IRON + TIBC Lab Routine Iron malabsorption Expected: 10/06/2022, Expires: 12/06/2022 [facility] Work Phone: Comment on above: Expected: 10/06/2022, Expires: 3 Start: 10-05-2022 End: 12-05-2022 CBC W Auto Differential panel - Blood CBC + DIFF Lab Routine Atrial fibrillation, unspecified type (HCC) Presence of Watchman left atrial appendage closure device Platelet inhibition due to Plavix Stage 3b chronic kidney disease (HCC) Type 2 diabetes mellitus with diabetic peripheral angiopathy without gangrene, without long-term current use of insulin (HCC) Expected: 10/05/2022, Expires: 12/05/2022 [facility] Work Phone: Comment on above: Expected: 10/05/2022, Expires: 3 Start: 10-05-2022 End: 12-05-2022 Comprehensive metabolic 2000 panel - Serum or Plasma COMP METABOLIC PANEL Lab Routine Atrial fibrillation, unspecified type (HCC) Hyperlipidemia with target LDL less than 70 Expected: 10/05/2022, Expires: 12/05/2022 [facility] Work Phone: Comment on above: Expected: 10/05/2022, Expires: 3 Start: 09-28-2022 End: 11-28-2022 Lipid 1996 panel - Serum or Plasma LIPID PANEL BASIC Lab Routine Hyperlipidemia with target LDL less than 70 Expected: 09/28/2022, Expires: 11/28/2022 [facility] Work Phone: Comment on above: Expected: 09/28/2022, Expires: 3 Start: 09-17-2022 Hemoglobin A1c/Hemoglobin.total in Blood HBA1C [facility] Start: 09-16-2022 ANNUAL PCP TEAM CHRONIC DISEASE VISIT ANNUAL PCP TEAM CHRONIC DISEASE VISIT [facility] Start: 09-16-2022 BP CONTROLLED (<130/80) BP CONTROLLED (<130/80) [facility] Start: 09-16-2022 SHINGRIX VACCINE (2 of 2) SHINGRIX VACCINE (2 of 2) [facility] Comment on above: Postponed from 01/03/2019 (Insurance Cov erage) Start: 09-13-2022 HEMOGLOBIN/HEMATOCRIT HEMOGLOBIN/HEMATOCRIT [facility] Start: 09-02-2022 End: 05-09-2023 US KIDNEY/BLADDER US KIDNEY/BLADDER Radiology Routine Neoplasm of uncertain behavior of right kidney Expected: 09/02/2022, Expires: 05/09/2023 [facility] Work Phone: Comment on above: Expected: 09/02/2022, Expires: 3 Start: 07-07-2022 End: 05-06-2023 Ct thorax w/o contrast material CT CHEST WO IVCON Radiology Routine Lung nodule, solitary Expected: 07/07/2022, Expires: 05/06/2023 [facility] Work Phone: Comment on above: Expected: 07/07/2022, Expires: 3 Start: 07-05-2022 ADVANCE DIRECTIVE DISCUSSION ADVANCE DIRECTIVE DISCUSSION [facility] Start: 07-05-2022 DEPRESSION ASSESSMENT DEPRESSION ASSESSMENT [facility] Start: 06-16-2022 Hemoglobin A1c/Hemoglobin.total in Blood HBA1C [facility] Start: 06-02-2022 SERUM CREATININE SERUM CREATININE [facility] Start: 05-07-2022 End: 07-07-2022 Basic metabolic 2000 panel - Serum or Plasma BASIC METABOLIC PNL Lab Routine Stage 3b chronic kidney disease (HCC) Iron deficiency anemia due to chronic blood loss Expected: 05/07/2022, Expires: 07/07/2022 [facility] Work Phone: Comment on above: Expected: 05/07/2022, Expires: 3 Start: 05-07-2022 End: 07-07-2022 CBC panel - Blood by Automated count CBC Lab Routine Stage 3b chronic kidney disease (HCC) Iron deficiency anemia due to chronic blood loss Expected: 05/07/2022, Expires: 07/07/2022 [facility] Work Phone: Comment on above: Expected: 05/07/2022, Expires: 3 Start: 03-30-2022 End: 05-30-2022 Basic metabolic 2000 panel - Serum or Plasma BASIC METABOLIC PNL Lab Routine Primary hypertension Expected: 03/30/2022, Expires: 05/30/2022 [facility] Work Phone: Comment on above: Expected: 03/30/2022, Expires: 2 Start: 03-05-2022 Influenza vaccination INFLUENZA (#1) [facility] Start: 02-20-2022 End: 04-22-2022 Basic metabolic 2000 panel - Serum or Plasma [facility] Work Phone: Comment on above: Expected: 02/20/2022, Expires: 2 Start: 02-19-2022 Hepatitis C antibody, confirmatory test DILATED RETINAL EXAM [facility] Start: 01-21-2022 End: 01-21-2023 SARS-CoV-2 (COVID-19) RNA [Presence] in Respiratory specimen by RANDOLPH with probe detection PRE-PROCEDURE & PRE-OPERATIVE COVID Microbiology Routine Paroxysmal atrial fibrillation (HCC) Expected: 01/21/2022, Expires: 01/21/2023 [facility] Work Phone: Comment on above: Expected: 01/21/2022, Expires: 3 Start: 12-30-2021 Administration of blood product [facility] Work Phone: Start: 12-30-2021 [facility] Work Phone: Start: 12-27-2021 End: 02-26-2022 CBC W Auto Differential panel - Blood CBC + DIFF Lab Routine Anemia, unspecified type Expected: 12/27/2021, Expires: 02/26/2022 [facility] Work Phone: Comment on above: Expected: 12/27/2021, Expires: 2 Start: 12-27-2021 End: 02-26-2022 Iron and Iron binding capacity panel - Serum or Plasma IRON + TIBC Lab Routine Anemia, unspecified type Expected: 12/27/2021, Expires: 02/26/2022 [facility] Work Phone: Comment on above: Expected: 12/27/2021, Expires: 2 Start: 12-15-2021 End: 02-14-2022 ALBUMIN/CREAT RATIO RND UR ALBUMIN/CREAT RATIO RND UR Lab Routine Type 2 diabetes mellitus with diabetic peripheral angiopathy without gangrene, without long-term current use of insulin (HCC) Expected: 12/15/2021, Expires: 02/14/2022 [facility] Work Phone: Comment on above: Expected: 12/15/2021, Expires: 2 Start: 12-11-2021 Hepatitis B surface antibody level LDL CHOLESTEROL [facility] Start: 11-26-2021 End: 01-26-2022 CBC panel - Blood by Automated count CBC Lab Routine PAD (peripheral artery disease) (HCC) Anemia due to chronic illness Expected: 11/26/2021, Expires: 01/26/2022 [facility] Work Phone: Comment on above: Expected: 11/26/2021, Expires: 2 Start: 11-26-2021 End: 01-26-2022 Renal function 2000 panel - Serum or Plasma RENAL FUNCTION PANEL Lab Routine PAD (peripheral artery disease) (HCC) Expected: 11/26/2021, Expires: 01/26/2022 [facility] Work Phone: Comment on above: Expected: 11/26/2021, Expires: 2 Start: 07-13-2021 COVID-19 VACCINE (4 - Booster for Pfizer series) COVID-19 VACCINE (4 - Booster for Pfizer series) [facility] Start: 07-12-2021 Hepatitis B screening URINE ALBUMIN:CREATININE RATIO [facility] Start: 07-05-2021 ADVANCE DIRECTIVE DISCUSSION ADVANCE DIRECTIVE DISCUSSION [facility] Start: 07-05-2021 DEPRESSION ASSESSMENT DEPRESSION ASSESSMENT [facility] Start: 06-12-2021 Hemoglobin A1c/Hemoglobin.total in Blood HBA1C [facility] Start: 05-08-2021 COVID-19 VACCINE (4 - Booster for Pfizer series) COVID-19 VACCINE (4 - Booster for Pfizer series) [facility] Start: 05-08-2021 COVID-19 VACCINE (4 - Pfizer series) COVID-19 VACCINE (4 - Pfizer series) [facility] Start: 2020 RSV Vaccine (1 - 1-dose 75+ series) RSV Vaccine (1 - 1-dose 75+ series) [facility] Start: 07-18-2020 Adult depression screening assessment DEPRESSION SCREENING [facility] Start: 05-25-2019 End: 05-25-2019 Office Visit 05/25/2019 Office Visit Cardiovascular Medicine Mars Chung, DO [address] [place] [address] [facility] Start: 03-05-2019 Influenza vaccination INFLUENZA VACCINE (#1) [facility] Start: 01-03-2019 SHINGRIX VACCINE (2 of 2) SHINGRIX VACCINE (2 of 2) [facility] Start: 01-08-2015 3 comp foot exam completed DIABETIC FOOT EXAM [facility] Start: 2010 Pneumococcal vaccination PNEUMOCOCCAL VACCINE SERIES (1 of 2 - PCV13) [facility] Start: 2005 Hepatitis B Vaccine (1 of 3 - Risk 3-dose series) Hepatitis B Vaccine (1 of 3 - Risk 3-dose series) [facility] Start: 2005 RSV Vaccine (1 - 1-dose 60+ series) RSV Vaccine (1 - 1-dose 60+ series) [facility] Start: 1995 Colonoscopy COLON CANCER SCREENING DISCUSSION [facility] Start: 1995 Zoster vaccine hzv live for subcutaneous use ZOSTER (SHINGLES) VACCINE (1 of 2) [facility] Start: 1985 Fasting lipid profile LIPID SCREENING [facility] Start: 1985 Screening mammography MAMMOGRAM SCREENING DISCUSSION [facility] Start: 1966 Screening for malignant neoplasm of cervix PAP SMEAR DISCUSSION [facility] Start: 1964 Third diphtheria, tetanus and acellular pertussis (DTaP) vaccination TDAP (ADULT) [facility] Start: 1963 Anxiety Screening Anxiety Screening [facility] Start: 1963 BP CONTROLLED (<130/80) BP CONTROLLED (<130/80) [facility] in Start: 1963 Depression Screening Depression Screening [facility] Start: 1963 Tetanus vaccination [facility] Start: 1945 Hepatitis C antibody, confirmatory test HEPATITIS C VIRUS SCREENING [facility] Start: 1945 Potassium [Moles/Vol] POTASSIUM [facility] Start: 1945 Screening for osteoporosis DEXA SCAN DISCUSSION [facility] COVID & INFLUENZA A/ B & RSV NAAT, ROUTINE COVID & INFLUENZA A/B & RSV NAAT, ROUTINE Microbiology Routine Influenza-like illness Ordered: 07/05/2023 [facility] Work Phone: Comment on above: Ordered: 07/05/2023 End: 01-21-2023 ECG COMPLETE ECG COMPLETE ECG Routine Paroxysmal atrial fibrillation (HCC) 1 Occurrences starting 01/21/2022 until 01/21/2023 [facility] Work Phone: Comment on above: 1 Occurrences starting 01/21/2022 until 01/21/2023 End: 02-09-2023 ECG COMPLETE ECG COMPLETE ECG Routine Paroxysmal atrial fibrillation (HCC) Presence of Watchman left atrial appendage closure device 1 Occurrences starting 02/09/2022 until 02/09/2023 [facility] Work Phone: Comment on above: 1 Occurrences starting 02/09/2022 until 02/09/2023 End: 03-19-2023 ECG COMPLETE ECG COMPLETE ECG Routine Aortic prosthetic valve regurgitation, 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) 1 Occurrences starting 03/19/2022 until 03/19/2023 [facility] Work Phone: Comment on above: 1 Occurrences starting 03/19/2022 until 03/19/2023 ECG COMPLETE ECG COMPLETE ECG 03/19/2022 11:04 AM EDT [facility] ECG COMPLETE [facility] Work Phone: Comment on above: Ordered: 10/18/2023 ECG COMPLETE ECG COMPLETE ECG 11/08/2023 4:52 PM EDT [facility] End: 01-21-2023 ECHO TRANSESOPHAGEAL ECHO TRANSESOPHAGEAL Cardiology Routine Paroxysmal atrial fibrillation (HCC) 1 Occurrences starting 01/21/2022 until 01/21/2023 [facility] Work Phone: Comment on above: 1 Occurrences starting 01/21/2022 until 01/21/2023 End: 02-09-2023 ECHO TRANSESOPHAGEAL ECHO TRANSESOPHAGEAL Cardiology Routine Paroxysmal atrial fibrillation (HCC) Presence of Watchman left atrial appendage closure device 1 Occurrences starting 02/09/2022 until 02/09/2023 [facility] Work Phone: Comment on above: 1 Occurrences starting 02/09/2022 until 02/09/2023 ECHO TRANSESOPHAGEAL ECHO TRANSE SOPHAGEAL Cardiology Routine Longstanding persistent atrial fibrillation (HCC) Presence of Watchman left atrial appendage closure device Ordered: 03/04/2022 [facility] Work Phone: Comment on above: Ordered: 03/04/2022 End: 10-17-2024 Echocardiography ECHO Cardiology Routine Acute systolic CHF (congestive heart failure) (HCC) 1 Occurrences starting 10/18/2023 until 10/17/2024 [facility] Work Phone: Comment on above: 1 Occurrences starting 10/18/2023 until 10/17/2024 End: 01-01-2026 Echocardiography ECHO Cardiology Routine Chronic diastolic (congestive) heart failure (HCC) History of prosthetic aortic valve replacement Acute on chronic diastolic congestive heart failure (HCC) 1 Occurrences starting 01/01/2025 until 01/01/2026 [facility] Work Phone: Comment on above: 1 Occurrences starting 01/01/2025 until 01/01/2026 End: 01-01-2023 EGD DIAGNOSTIC EGD DIAGNOSTIC Endoscopy Routine Acute blood loss anemia Heme + stool Epigastric pain 1 Occurrences starting 01/01/2022 until 01/01/2023 [facility] Work Phone: Comment on above: 1 Occurrences starting 01/01/2022 until 01/01/2023 Hemoglobin.gastroint estin al.lower [Presence] in Stool by Immunoassay FECAL OCCULT BLOOD TEST Lab Routine Heme + stool Ordered: 12/15/2021 [facility] Work Phone: Comment on above: Ordered: 12/15/2021 Hemoglobin.gastroint estin al.lower [Presence] in Stool by Immunoassay IMMUNOCHEMICAL FECAL OCCULT BLOOD TEST Lab Routine Acute systolic CHF (congestive heart failure) (HCC) Ordered: 11/04/2023 [facility] Work Phone: Comment on above: Ordered: 11/04/2023 End: 08-06-2023 Mra head w/o & w/contrast material MRA BRAIN WO/W IVCON Radiology Routine 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 1 Occurrences starting 07/07/2022 until 08/06/2023 [facility] Work Phone: Comment on above: 1 Occurrences starting 07/07/2022 until 08/06/2023 End: 01-08-2024 PVR ANK PRESS [facility] PVR ANK PRESS [facility] Vascular Lab Routine 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HCC) Pain in both lower legs Atherosclerosis of [place] artery of both lower extremities with intermittent claudication (HCC) 1 Occurrences starting 01/07/2023 until 01/08/2024 [facility] Work Phone: Comment on above: 1 Occurrences starting 01/07/2023 until 01/08/2024 End: 01-08-2024 PVR LEG [facility] PVR LEG [facility] Vascular Lab Routine 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HCC) Pain in both lower legs Atherosclerosis of [place] artery of both lower extremities with intermittent claudication (HCC) 1 Occurrences starting 01/07/2023 until 01/08/2024 [facility] Work Phone: Comment on above: 1 Occurrences starting 01/07/2023 until 01/08/2024 SURGICAL PATHOLOGY [facility] Work Phone: Comment on above: Release Upon Ordering for 1 Occurrences starting 01/02/2022, 1 completed End: 01-08-2024 US CAROTID ARTERIES [facility] US CAROTID ARTERIES [facility] Vascular Lab Routine Bilateral carotid artery stenosis 1 Occurrences starting 01/07/2023 until 01/08/2024 [facility] [place] Work Phone: Comment on above: 1 Occurrences starting 01/07/2023 until 01/08/2024 End: 12-20-2025 US Mesenteric arteries US MESENTERIC ARTERY CMPLT VAS LAB Vascular Lab Routine Superior mesenteric artery stenosis (HCC) 1 Occurrences starting 12/20/2024 until 12/20/2025 [facility] [place] Work Phone: Comment on above: 1 Occurrences starting 12/20/2024 until 12/20/2025 [facility] Immunizations Immunization Date Immunization Notes Care Provider Fa [facility] 07-07-2024 influenza, high dose seasonal, preservative-free Melida Koo APRN.SIGN BOARD ERECTOR Work Phone: [facility] 04-12-2023 influenza (HD-IIV4) vaccine, age 65+ yr, high dose, quadrivalent, PF (FLUZONE HIGH-DOSE) Ct (I-Stat) Work Phone: [facility] 04-12-2023 influenza virus vacc ine, unspecified formulation Carla Burdick MD Work Phone: [facility] 05-22-2022 influenza (aIIV4) vaccine, age 65+ yr, quadrivalent, PF (FLUAD QUADRIVALENT) NA Rey HAMLIN Work Phone: [facility] 05-22-2022 influenza, high-dose , quadrivalent vaccine (FLUZONE HIGH DOSE QUADRIVALENT) Sonny Lund MD Work Phone: [facility] 05-22-2022 influenza virus vacc ine, unspecified formulation Yin Joseph MD Work Phone: [facility] 05-20-2021 influenza, high-dose , quadrivalent vaccine (FLUZONE HIGH DOSE QUADRIVALENT) Chandler Swan MD Work Phone: [facility] 10-09-2020 COVID-19 vaccine, ag e 12+ yr (PFIZER-BIONTECH - PURPLE TOP) Chandler Swan MD Work Phone: [facility] 09-18-2020 COVID-19 vaccine, ag e 12+ yr (PFIZER-BIONTECH - PURPLE TOP) Chandler Swan MD Work Phone: [facility] 05-17-2020 influenza, high-dose , quadrivalent vaccine (FLUZONE HIGH DOSE QUADRIVALENT) Chandler Swan MD Work Phone: [facility] 05-09-2019 influenza, high dose seasonal, preservative-free Chandler Swan MD Work Phone: [facility] 11-08-2018 zoster vaccine recombinant Chandler Swan MD Work Phone: [facility] Work Phone: 05-09-2018 Seasonal trivalent influenza vaccine, adjuvanted, preservative free Chandler Swan MD Work Phone: [facility] 05-05-2017 influenza nasal, unspecified formulation Chandler Swan MD Work Phone: [facility] 05-05-2017 influenza, injectabl e, quadrivalent, contains preservative Chandler Swan MD Work Phone: [facility] 05-05-2017 influenza, seasonal, injectable Chandler Swan MD Work Phone: [facility] 05-05-2017 influenza virus vacc ine, unspecified formulation [facility] 04-05-2017 influenza, injectabl e, quadrivalent, preservative free Ct (I-Stat) Work Phone: [facility] 04-05-2017 influenza, seasonal, injectable [facility] 04-05-2017 influenza, seasonal, injectable, preservative free Chandler Swan MD Work Phone: [facility] 11-25-2016 pneumococcal conjuga te vaccine, 13 valent Chandler Swan MD Work Phone: [facility] Work Phone: 04-07-2016 influenza, high dose seasonal, preservative-free Chandler Swan MD Work Phone: [facility] Work Phone: 01-08-2014 tetanus toxoid, redu javid diphtheria toxoid, and acellular pertussis vaccine, adsorbed Chandler Swan MD Work Phone: [facility] Work Phone: 06-06-2013 pneumococcal polysaccharide vaccine, 23 valent Chandler Swan MD Work Phone: [facility] 05-14-2013 influenza nasal, unspecified formulation Chandler Swan MD Work Phone: [facility] 05-14-2013 influenza virus vacc ine, unspecified formulation Chandler Swan MD Work Phone: [facility] 05-14-2013 influenza, seasonal, injectable, preservative free Chandler Swan MD Work Phone: [facility] 05-20-2012 influenza, seasonal, injectable Chandler Swan MD Work Phone: [facility] 04-29-2011 influenza, seasonal, injectable, preservative free Chandler Swan MD Work Phone: [facility] 04-23-2009 influenza, seasonal, injectable Chandler Swan MD Work Phone: [facility] 07-07-1999 pneumococcal polysaccharide vaccine, 23 valkathy Encinas MD Work Phone: [facility] Work Phone: 07-05-1999 pneumococcal polysaccharide vaccine, 23 valkathy Swan MD Work Phone: [facility] Payers Date Payer Category Payer Self-pay [id number] 2021 Medicare [id number] 2021 Medicare [id number] 2021 Medicare (Managed Care) PRADEEP NICKERSON [id number] 2021 Private Health Insurance 101 [id number] 2019 Medicare MEDICARE HU[employer]NA HMO PPO MEDICARE HU[employer]NA HMO PPO xxxxxxxxx 2019-Present xxxxxxxxx [id number] 2015 Medicare SELF PAY INSURANCE [id number] Unknown [id number] Unknown [id number] Social History Date Type Detail Facility Start: 01-19-2019 End: 04-07-2024 Tobacco smoking status NHIS Former smoker [facility] Start: 01-19-2019 Tobacco Comment smoked for a y ear, 50 years ago [employer] Start: 01-19-2019 Alcohol Comment occasional wine [employer] Start: 1945 Sex Assigned At Not on file A [facility] Start: 07-05-1965 End: 02-11-1970 History of tobacco use Current smoker [facility] Start: 08-10-2019 End: 04-07-2024 Tobacco use and exposure Smokeless tobacco non-user [facility] Start: 09-16-2021 End: 12-15-2021 Alcohol intake Current drinker of alcohol (finding) [facility] Start: 09-16-2021 End: 01-07-2023 Alcohol intake [facility] Start: 10-25-2019 End: 10-29-2019 History SDOH Alcohol Frequency 2 [facility] Start: 10-25-2019 End: 10-29-2019 History SDOH Alcohol Std Drinks 1 [facility] Start: 01-31-2019 History SDOH Alcohol Comment red wine 2-3 times a week- occasional [facility] Start: 10-29-2019 History SDOH Social Connections Phone 5 [facility] Start: 10-29-2019 End: 02-24-2022 History SDOH Social Connections [facility] 3 [facility] Start: 10-29-2019 Education 15 [facility] Start: 09-05-2021 End: 05-14-2022 Exposure to SARS-CoV-2 (event) Not sure [facility] Start: 10-14-2021 End: 01-23-2022 Exposure to SARS-CoV-2 (event) Unable to assess [facility] Start: 02-13-2021 Tobacco smoking stat us MTIS Unknown if ever smoked [facility] Work Phone: Start: 1945 Sex Assigned At Female W [facility] Work Phone: Start: 07-05-1965 End: 02-11-1970 History of tobacco use Cigarette Smoker [facility] Start: 06-08-2022 End: 01-01-2025 Alcohol intake Ex-drinker (finding) [facility] Start: 01-07-2023 End: 12-11-2024 Tobacco use panel [facility] How hard is it for y ou to pay for the very basics like food, housing, medical care, and heating Patient refused [facility] (I/We) worried wheth er (my/our) food would run out before (I/we) got money to buy more. DK or Refused [facility] Do you belong to any clubs or organizations such as presybeterian groups, unions, fraternal or athletic groups, or school groups? Yes [facility] Are you now , , , , never or living with a partner? [facility] How often to you hav e a drink containing alcohol? Monthly or less [facility] How many standard dr inks containing alcohol do you have on a typical day? 1 or 2 [facility] How often do you hav e 6 or more drinks on 1 occasion? Never [facility] Do you feel stress - tense, restless, nervous, or anxious, or unable to sleep at night because your mind is troubled all the time - these days [OSQ] Not at all [facility] Has the [employer], [employer], [employer], or water [employer] threatened to shut off services in your home in past 12Mo No [facility] (I/We) worried wheth er (my/our) food would run out before (I/we) got money to buy more. Never true [facility] Medical Equipment Procedure Code Equipment Code Equipment Origin al Text Equipment Identifier Dates Test blood sugar (s) 2 times daily. Dx: Type 2 DM - Controlled E11.9 Insulin: No [id number] Start: 01-19-2019 Comment on above: Test blood sugar(s) 2 times daily. Dx: Type 2 DM - Controlled E11.9 Insulin: No [id number] Sania Xt [id number] Start: 10-21-2020 [id number] [employer] [id number] Start: 10-21-2020 [id number] Andree Hawkins [id number] Start: 10-21-2020 Goals Date Patient Goal Desired Activity /State Personal health goal Functional Status Date Assessment Result Facility 12-12-2024 Are you deaf, or do you have serious difficulty hearing Yes 12/12/2024 10:12 AM EDT Lizeth Jordan, DOUG Yes [facility] 12-12-2024 Are you blind, or do you have serious difficulty seeing, even when wearing glasses No 12/12/2024 10:12 AM EDT Lizeth Jordan, DOUG No [facility] 12-12-2024 Do you have serious difficulty walking or climbing stairs No 12/12/2024 10:12 AM EDT Lizeth Jordan RN No [facility] 12-12-2024 Do you have difficul ty dressing or bathing No 12/12/2024 10:12 AM EDT Lizeth Jordan, DOUG No [facility] 12-12-2024 Because of a physica l, mental, or emotional condition, do you have difficulty doing errands alone such as visiting a physician's office or shopping No 12/12/2024 10:12 AM EDT Lizeth Jordan RN No [facility] 11-12-2023 Are you deaf, or do you have serious difficulty hearing No 11/12/2023 3:37 PM EDT Raina Coppola RN No [facility] 11-12-2023 Are you blind, or do you have serious difficulty seeing, even when wearing glasses No 11/12/2023 3:37 PM ADIELT Raina Coppola RN No [facility] 11-12-2023 Do you have serious difficulty walking or climbing stairs No 11/12/2023 3:37 PM ADIELT Raina Coppola RN No [facility] 11-12-2023 Do you have difficul ty dressing or bathing No 11/12/2023 3:37 PM ADIELT Raina Coppola RN No [facility] 11-12-2023 Because of a physica l, mental, or emotional condition, do you have difficulty doing errands alone such as visiting a physician's office or shopping No 11/12/2023 3:37 PM EDT Raina Coppola, DOUG No [facility] Mental Status Date Assessment Result Facility 12-12-2024 Because of a physica l, mental, or emotional condition, do you have serious difficulty concentrating, remembering, or making decisions No 12/12/2024 10:12 AM EDT Lizeth Jordan, DOUG No [facility] 11-12-2023 Because of a physica l, mental, or emotional condition, do you have serious difficulty concentrating, remembering, or making decisions No 11/12/2023 3:37 PM EDT Raina Coppola, DOUG No [facility] 12-30-2021 Cognitive function Voice/Name [facility] Work Phone: Clinical Notes 02-15-2021 to 01-01-2025 Patient InstructionsCarla Burdick MD - 01/01/2025 11:00 AM EDTTelephone Encounter - Albin Gu APRN.SIGN BOARD ERECTOR - 12/26/2024 9:44 AM EDTBLars finney DO - 12/20/2024 8:53 AM EDT Note Date & Type Note Facility 01-01-2025 Instructions Carla Burdick MD - 01/01/2025 11:12 AM EDT I have written you for lasix 40 mg pills Take two in the morning (80 mg) and one (40 mg) in the afternoon for this week Wed-Wednesday Repeat blood work next wednesday documented in this encounter [facility] 01-01-2025 History of Present illness Narrative Images from the original note were not included. [facility] SECTION OF REGIONAL CARDIOLOGY [facility] [address] [facility] [id number] OUTPATIENT VISIT DATE 01/01/2025 PRIMARY CARE PHYSICIAN: Doreen Le [address] [place] [address] HISTORY OF PRESENT ILLNESS: Ms. Sanches is a 79 year old woman with a history of remote aortic valve replacement with homograft in 1996 and possible repair of the ascending aorta, chronic diastolic congestive heart failure, hypertension, dyslipidemia, atrial fibrillation with history of pulmonary vein isolation procedures, pacemaker placement and watchman procedure who presents for follow-up. Patient was admitted to [facility]. She was discharged after 2 days. She [...] 06/01/16 Mitral valve regurgitation Pacemaker 10/21/[address] TRELL VERNON [id number] pulse generator, his bundle lead, right atrial lead Peripheral arterial disease Rheumatic fever Steatosis, liver 03/26/2014 fatty liver on US. 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 Lua PACEMAKER 10/2019 PART. HYSTERECTOMY W/WO RMVL OVARIES/TUBES 1974 h/o cervical cancer ovaries remain PAST SURGICAL HISTORY OF 1996 Aortic valve repair, Dr. Apodaca PAST SURGICAL HISTORY OF 2001 [address] Beltrán, [facility] PAST SURGICAL HISTORY OF 2015 clipping and [...] lb 9.6 oz) SpO2 100% BMI 27.18 kg/m General: Very pleasant woman sitting appears comfortable [...] bilaterally CARDIOVASCULAR MEDICINE TESTING: Right Heart Catheterization David Melendez 10/24/2024: Cardiac output (Qs) !4.1L/min ! + +------- + !Cardiac index !2.42L/(min-m^2) ! + +------- + !HR, R-R, stroke volume !92bpm, 45ml ! + +------- + !RA pressure a/v (m) ! () ! + +------- + !PA pressure s/d (m) ! (51) ! + +------- + !PA wedge a/v (m) ! () ! + +------- + !Aortic pressure s/d (m) !163/81 (108) ! + +------- + !SVR !1650dyn-sec/cm5 ! + +------- + !SVRI !4858aho-dha-x^2/cm5 ! + +------- + !PVR !544dyn-sec/cm5 ! + +------- + !PVRI !568pog-zrr-u^2/cm5 ! + +------- + !Total systemic resistance!2097dyn-sec/cm5, 8364byu-utr-c^2/cm5! Echocardiogram [facility] 10/03/2024: 1. Left ventricle: The cavity [...] area by the velocity-time integral method is 1.5cm^2. The valve area by the peak velocity method is 1.5cm^2. 3. Mitral valve: The leaflets are mildly thickened and calcified. Mobility was normal. The valve area (LVOT continuity) is 2.1cm^2. 4. Left atrium: The atrium is severely [...] systolic function is normal. EF = 58 5% (2D biplane) Left ventricular diastolic function [...] function is mildly decreased. EF = 51 5% (2D 4-ch.) Indeterminate left ventricular diastolic [...] function is moderately decreased. EF = 38 5% (visual est.) - The right ventricle is normal in size. Right ventricular systolic function is moderately to severely decreased. - The left atrial cavity is dilated. Small Watchman violet-device leak measuring 2mm (clip 14). - The [...] systolic function is normal. EF = 58 5% (2D biplane) Indeterminate left ventricular diastolic dysfunction due to mitral valve surgery. - The right ventricle is normal in size. Right ventricular systolic function is low normal. - The left atrial cavity is severely dilated. - There is moderate (2+) mitral valve regurgitation. Regurgitant orifice area (PISA) is 0.15 cm . - Cryolife prosthetic aortic valve (size #28). [...] systolic function is normal. EF = 60 5% (2D biplane) Grade II left ventricular diastolic dysfunction. - The right ventricle is normal in size. Right ventricular systolic function is normal. - The left atrial cavity is severely dilated. - There is moderate (2+ - 3+) mitral valve regurgitation. Regurgitant orifice area (PISA) is 0.15 cm . - Cryolife prosthetic aortic valve (size #28). [...] or suggestive of Atrial Fibrillation * AT/AF Cross: 67.8% * Total number of events: 2774 Tachycardia: AF w/RVR * Stored EGMs listed as NSVT AND SVT are consistent with or suggestive of Atrial Fibrillation with Rapid Ventricular Response * AT/AF Cross: 67.8% * Total episodes: 9 * Longest [...] underwent SMA stent placement at [facility] September 2024. She has been treated for [...] Maintained on atorvastatin 40 mg daily. Carla Burdick MD documented in this encounter [facility] 01-01-2025 Note HNO ID: [id number] Author: CARLA BURDICK MD Service: ? Author Type: Physician Type: Progress Notes Filed: 01/01/2025 12:27 Note Text: [facility] SECTION OF REGIONAL CARDIOLOGY Cardiology ([facility]) [address] [facility] [id number] OUTPATIENT VISIT DATE 01/01/2025 PRIMARY CARE PHYSICIAN: Doreen Le [address] [place] [address] HISTORY OF PRESENT ILLNESS: Ms. Sanches is a 79 year old woman with a history of remote aortic valve replacement with homograft in 1996 and possible repair of the ascending aorta, chronic diastolic congestive heart failure, hypertension, dyslipidemia, atrial fibrillation with history of pulmonary vein isolation procedures, pacemaker placement and watchman procedure who presents for follow-up. Patient was admitted to [facility]. She was discharged after 2 days. She [...] 06/01/16 Mitral valve regurgitation Pacemaker 10/21/[address] TRELL VERNON [id number] pulse generator, his bundle lead, right atrial lead Peripheral arterial disease Rheumatic fever Steatosis, liver 03/26/2014 fatty liver on US. 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 Lua PACEMAKER 10/2019 PART. HYSTERECTOMY W/WO RMVL OVARIES/TUBES 1974 h/o cervical cancer ovaries remain PAST SURGICAL HISTORY OF 1996 Aortic valve repair, Dr. Apodaca PAST SURGICAL HISTORY OF 2001 [address] Beltrán, [facility] PAST SURGICAL HISTORY OF 2016 clipping and [...] sulfate (IRON) 325 mg (65 mg iron) tabl (more content not included)... [facility] 12-26-2024 Telephone encounter Note Patient called to report weight of 148 [...] questions answered at this time. Albin Gu APRN.JASPREET [facility] 12-26-2024 Miscellaneous Notes Patient called to report weight of 148 [...] questions answered at this time. Albin Gu APRN.CNP documented in this encounter [facility] 12-20-2024 Note HNO ID: [id number] Author: LARS SILVA, DO Service: ? Author Type: Physician Type: Progress Notes Filed: 12/20/2024 17:56 Note Text: [facility] [place] DEPARTMENT OF VASCULAR SURGERY OUTPATIENT VISIT DATE [...] clinic. She had a stent placed in [place] in September. She was recently admitted to [place] for anemia. She has noted increased swelling. [...] 06/01/16 Mitral valve regurgitation Pacemaker 10/21/[address] TRELL VERNON [id number] pulse generator, his bundle lead, right atrial lead Peripheral arterial disease Rheumatic fever Steatosis, liver 03/26/2014 fatty liver on US. 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 Lua PACEMAKER 10/2019 PART. HYSTERECTOMY W/WO RMVL OVARIES/TUBES 1974 h/o cervical cancer ovaries remain PAST SURGICAL HISTORY OF 1996 Aortic valve repair, Dr. Apodaca PAST SURGICAL HISTORY OF 2001 [address] Beltrán, [facility] PAST SURGICAL HISTORY OF 2015 clipping and [...] after administration during watchman procedure on 01/12/22, treate (more content not included)... [facility] 12-20-2024 History of Present illness Narrative Images from the original note were not included. [facility] [place] DEPARTMENT OF VASCULAR SURGERY OUTPATIENT VISIT DATE December 20, 2024 OUTPATIENT VISIT TYPE ESTABLISHED SERVICE DATE: 12/20/2024 SERVICE TIME: 8:53 AM PRIMARY CARE PHYSICIAN: Deysi Nicholson APRN.SIGN BOARD ERECTOR HISTORY OF PRESENT ILLNESS: Ms. Sanches is a 79 year old female who presents today for a vascular surgery follow-up visit follow up on mesenteric duplex. She recently increased her lasix at the CHF clinic. She had a stent placed in [place] in September. She was recently admitted to [place] for anemia. She has noted increased swelling. [...] 06/01/16 Mitral valve regurgitation Pacemaker 10/21/[address] TRELL VERNON [id number] pulse generator, his bundle lead, right atrial lead Peripheral arterial disease Rheumatic fever Steatosis, liver 03/26/2014 fatty liver on US. 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 Lua PACEMAKER 10/2019 PART. HYSTERECTOMY W/WO RMVL OVARIES/TUBES 1973 h/o cervical cancer ovaries remain PAST SURGICAL HISTORY OF 1996 Aortic valve repair, Dr. Apodaca PAST SURGICAL HISTORY OF 2001 [address] Beltrán, [facility] PAST SURGICAL HISTORY OF 2015 clipping and [...] continue DAPT until follow up duplex SIGNATURE: Lars Silva DO PATIENT NAME: Berta Sanches DATE: December 20, 2024 TIME: 8:53 AM documented in this encounter [facility] 12-19-2024 Note HNO ID: [id number] Author: GWEN VALENTINE RN Service: ? Author [...] bleeding or swelling noted. Pt tolerated well. [facility] 12-19-2024 History of Present illness Narrative Pt seen in the outpatient CHF clinic. Lasix 40 mg IV ordered. IV started to right AC with 22g angiocath. Good blood return, no redness, no swelling. Lasix given and flushed per protocol. IV D/Cd and pressure held x 5 minutes. Dry dressing and coband applied. No bleeding or swelling noted. Pt tolerated well. Images from the original note were not included. [facility] [place] [facility] OUTPATIENT VISIT DATE December [...] and was worried about traveling home to [place] in a few days. Discussed with her taking lasix as it was prescribed. As her spironolactone was stopped, did advise patient restart this at 25 mg once a day for four days only. She was instructed to call office in a week to review symptoms. On 10/15, patient presented back to [facility] for gastrointestinal bleed. She had a colonoscopy [...] and entresto. The patient wished to leave [place] so she could return to [place]. Cardiology and Pulmonary agreed with discharge. Patient [...] and has a follow-up appointment with Dr. Burdick on January 01. She reports difficulty sleeping [...] [facility]. Burdick. -GDMT: lasix, metoprolol, losartan -will review labs [...] office visit Follow up appointment with Dr. Burdick 01/01 PAST MEDICAL HISTORY Diagnosis Date Abnormal [...] 06/01/16 Mitral valve regurgitation Pacemaker 10/21/[address] TRELL VERNON [id number] pulse generator, his bundle lead, right atrial lead Peripheral arterial disease Rheumatic fever Steatosis, liver 03/26/2014 fatty liver on US. 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 Lua PACEMAKER 10/2019 PART. HYSTERECTOMY W/WO RMVL OVARIES/TUBES 1974 h/o cervical cancer ovaries remain PAST SURGICAL HISTORY OF 1996 Aortic valve repair, Dr. Apodaca PAST SURGICAL HISTORY OF 2001 [address] Beltrán, [facility] PAST SURGICAL HISTORY OF 2015 clipping and [...] kg (144 lb) SpO2 99% BMI 26.34 kg/m General: Normal exam, no distress, accompanied by family Skin: No clubbing, no cyanosis. Eyes: Extra ocular movements intact Neck: Neck veins are not distended Lungs: Chest clear to auscultation Heart: Rhythm: irregularly irregular, Rate: normal, no murmur Abdomen: Normal Extremities: edema: 1+ thighs; no edema to lower leg CARDIOVASCULAR MEDICINE TESTING: Latest Reference Range & Units 12/12/24 05:20 Sodium 136 - 144 [...] 8 - 15 mmol/L 12 eGFR >=60 mL/min/1.73m 31 (L) (L): Data is abnormally low [...] area by the velocity-time integral method is 1.5cm^2. The valve area by the peak velocity method is 1.5cm^2. 3. Mitral valve: The leaflets are mildly thickened and calcified. Mobility was normal. The valve area (LVOT continuity) is 2.1cm^2. 4. Left atrium: The atrium is severely [...] impression and interpretation as noted. Federico Hammonds [id number] DEVICE CHECK 10/04/2024: Tachycardia: AF * Stored EGMs are consistent with or suggestive of Atrial Fibrillation * AT/AF Cross: 67.8% * Total number of events: 2774 Tachycardia: AF w/RVR * Stored EGMs listed as NSVT AND SVT are consistent with or suggestive of Atrial Fibrillation with Rapid Ventricular Response * AT/AF Cross: 67.8% * Total episodes: 9 * Longest episode: 28 SECS * Fastest episode:207 BPM Remote Device Evaluation [employer] FROM [facility] * Device type: DUAL LEAD PACEMAKER * Presenting Rhythm: AF/ VS * Battery Status: Battery is at OK, 9.83 yrs . * Atrial Arrhythmias: There have been 12 atrial detections. Anticoagulants listed: _LAAC____ * Ventricular Arrhythmias: There have been __0 TRUE_ ventricular detections. * Lead Measurements: Capture thresholds, sensing, and lead impedances are appropriate. * Other Diagnostics: AP 64.4 FURNITURE FINISHER HELPER 9.3% Tachycardia: AF * Stored EGMs are consistent with or suggestive of Atrial Fibrillation * AT/AF Cross: 8.2% (THIS PERCENT IS INACCCURATE,LIKELY CLOSER TO [...] Discussed red flags and when to call MD/HIM MANAGER or go to ED. Medications reconciled at end of visit: yes I spent 40 minutes in this visit, with more than 50% of the time devoted to patient counseling. Recording using Trov software for draft documentation was discussed with patient/authorized distribution sales representative. All questions were welcome and answered. Patient/authorized distribution sales representative agreed to proceed. SIGNATURE: Albin Gu APRN.CNP PATIENT NAME: Berta Sanches DATE: December 19, 2024 TIME: 1100 documented in this encounter [facility] 12-19-2024 Note HNO ID: [id number] Author: ALBIN GU APRN.CNP Service: ? Author Type: Nurse Practitioner Type: Progress Notes Filed: 12/19/2024 11:45 Note Text: [facility] [place] [facility] OUTPATIENT VISIT DATE December [...] and was worried about traveling home to [place] in a few days. Discussed with her taking lasix as it was prescribed. As her spironolactone was stopped, did advise patient restart this at 25 mg once a day for four days only. She was instructed to call office in a week to review symptoms. On 10/15, patient presented back to [facility] for gastrointestinal bleed. She had a colonoscopy [...] and entresto. The patient wished to leave [facility] so she could return to [place]. Cardiology and Pulmonary agreed with discharge. Patient [...] She has been monitoring her sodium intake (more content not included)... [facility] 12-19-2024 Instructions Albin Gu APRN.SIGN BOARD ERECTOR - 12/19/2024 10:59 AM EDT 40 mg intravenous lasix given in the [...] or concern, you can call me at [phone]. documented in this encounter [facility] 12-13-2024 Telephone encounter Note Transitional Care [facility] (TCM) [facility] Provider Action / FYI: N/A SUMMARY: Outreach type: INITIAL OUTREACH Discharge Network Status: In-Network Discharge Source of Patient: [facility] TCM Discharge Report Patient discharged from [place] on December 12. Admitted for Acute on chronic diastolic CHF (congestive heart failure) (HCC). Contact made with patient: No - next outreach attempt will be on next . Alex Betancourt December 13, 2024 9:35 AM [facility] 12-13-2024 Miscellaneous Notes Transitional Care Management (TCM) [facility] Provider Action / FYI: N/A SUMMARY: Outreach type: INITIAL OUTREACH Discharge Network Status: In-Network Discharge Source of Patient: [facility] TCM Discharge Report Patient discharged from [place] on December 12. Admitted for Acute on chronic diastolic CHF (congestive heart failure) (HCC). Contact made with patient: No - next outreach attempt will be on next day. Alex Betancourt December 13, 2024 9:35 AM documented in this encounter [facility] 12-12-2024 Note HNO ID: [id number] Author: STACIE LONDONO RN Service: Care Management Author Type: [...] Physician Primary Care Physician Name/Phone: Deysi Nicholson APRN.JASPREET [phone] Additional Information: na Discharge order written for today, patient discharged home with no services. Family will transport. SIGNATURE: Stacie Londono RN PATIENT NAME: Berta Sanches DATE: December 12, 2024 TIME: 9:13 AM [facility] 12-11-2024 Telephone encounter Note Noted. Deysi Nicholson APRN.CNP [facility] 12-11-2024 Miscellaneous Notes Noted. Deysi Nicholson APRN.CNP Pt re admitted to [facility]. Sigifredo Rivera LPN Patient called to cancel hospital follow up due to re admission yesterday 12/10/2024 documented in this encounter [facility] 12-11-2024 Note HNO ID: [id number] Author: MAXIMINO JENNINGS, DOUG Service: Care Management Author Type: Registered Nurse Type: Care Mgt Initial Assessment Filed: 12/11/2024 11:51 Note Text: CARE MANAGEMENT: ASSESSMENT AND DISCHARGE PLAN SERVICE DATE: December 11, 2024 SERVICE TIME: 11:50 AM PCP: Deysi Nicholson APRN.CNP Primary Contact: Extended Emergency Contact Information Primary Emergency Contact: Natanael Sanches Address: [address] [place] [address] Mobile Relation: Spouse Admission Status: Inpatient Insurance Provider: [employer] PPO Discharge Planning requested by: Per Department Practice Potential Transition Plans Home Advance Directives Current Advance Directive: Living Will, Health Care Power of Negative Turner Apprentice In Chart: No Current Living Arrangements and [...] None Discharge Planning Patient Goal(s): General wellness [place] Choice Explained: [place] of Choice Given: No Reason Not Given: No placements necessary Are you interested in bedside delivery of your medications? Brayden Olsen Discharge Planning Participant(s): Patient Patient/Family Comments: Caregiver [...] assessment. 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 to transport upon DC. CM assigned will continue to follow for DC planning needs. 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 Patient presenting with [...] Byrd MD DATE: 12/11/2024 TIME: 11:47 AM [facility] 12-11-2024 Telephone encounter Note Pt re admitted to [facility]. Sigifredo Rivera LPN [facility] 12-11-2024 Telephone encounter Note Patient called to cancel hospital follow up due to re admission yesterday 12/10/2024 [facility] 11-20-2024 History of Present illness Narrative Images from the original note were not included. [facility] SECTION OF REGIONAL CARDIOLOGY Cardiology ([facility]) [address] [facility] [id number] OUTPATIENT VISIT DATE PRIMARY CARE PHYSICIAN: Doreen Le [address] [place] [address] HISTORY OF PRESENT ILLNESS: Ms. Sanches is [...] 06/01/16 Mitral valve regurgitation Pacemaker 10/21/[address] TRELL VERNON [id number] pulse generator, his bundle lead, right atrial lead Peripheral arterial disease Rheumatic fever Steatosis, liver 03/26/2014 fatty liver on US. 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 Lua PACEMAKER 10/2019 PART. HYSTERECTOMY W/WO RMVL OVARIES/TUBES 1973 h/o cervical cancer ovaries remain PAST SURGICAL HISTORY OF 1996 Aortic valve repair, Dr. Apodaca PAST SURGICAL HISTORY OF 2001 [address] Beltrán, [facility] PAST SURGICAL HISTORY OF 2015 clipping and [...] lb 12.8 oz) SpO2 99% BMI 26.30 kg/m General: Very pleasant woman sitting appears comfortable [...] palpate. CARDIOVASCULAR MEDICINE TESTING: Right Heart Catheterization [facility] 10/24/2024: Cardiac output (Qs) !4.1L/min ! + +------- + !Cardiac index !2.42L/(min-m^2) ! + +------- + !HR, R-R, stroke volume !92bpm, 45ml ! + +------- + !RA pressure a/v (m) ! () ! + +------- + !PA pressure s/d (m) ! (51) ! + +------- + !PA wedge a/v (m) ! () ! + +------- + !Aortic pressure s/d (m) !163/81 (108) ! + +------- + !SVR !1650dyn-sec/cm5 ! + +------- + !SVRI !0796kdu-evl-l^2/cm5 ! + +------- + !PVR !544dyn-sec/cm5 ! + +------- + !PVRI !421wtf-txd-n^2/cm5 ! + +------- + !Total systemic resistance!2097dyn-sec/cm5, 1916vza-bmm-s^2/cm5! Echocardiogram [facility] 10/03/2024: 1. Left ventricle: The cavity [...] area by the velocity-time integral method is 1.5cm^2. The valve area by the peak velocity method is 1.5cm^2. 3. Mitral valve: The leaflets are mildly thickened and calcified. Mobility was normal. The valve area (LVOT continuity) is 2.1cm^2. 4. Left atrium: The atrium is severely [...] systolic function is normal. EF = 58 5% (2D biplane) Left ventricular diastolic function [...] function is mildly decreased. EF = 51 5% (2D 4-ch.) Indeterminate left ventricular diastolic [...] function is moderately decreased. EF = 38 5% (visual est.) - The right ventricle is normal in size. Right ventricular systolic function is moderately to severely decreased. - The left atrial cavity is dilated. Small Watchman violet-device leak measuring 2mm (clip 14). - The [...] systolic function is normal. EF = 58 5% (2D biplane) Indeterminate left ventricular diastolic dysfunction due to mitral valve surgery. - The right ventricle is normal in size. Right ventricular systolic function is low normal. - The left atrial cavity is severely dilated. - There is moderate (2+) mitral valve regurgitation. Regurgitant orifice area (PISA) is 0.15 cm . - Cryolife prosthetic aortic valve (size #28). [...] systolic function is normal. EF = 60 5% (2D biplane) Grade II left ventricular diastolic dysfunction. - The right ventricle is normal in size. Right ventricular systolic function is normal. - The left atrial cavity is severely dilated. - There is moderate (2+ - 3+) mitral valve regurgitation. Regurgitant orifice area (PISA) is 0.15 cm . - Cryolife prosthetic aortic valve (size #28). [...] or suggestive of Atrial Fibrillation * AT/AF Cross: 67.8% * Total number of events: 2774 Tachycardia: AF w/RVR * Stored EGMs listed as NSVT AND SVT are consistent with or suggestive of Atrial Fibrillation with Rapid Ventricular Response * AT/AF Cross: 67.8% * Total episodes: 9 * Longest [...] underwent SMA stent placement at [facility] September 2024. She has been treated for [...] TABLET - CLOPIDOGREL 75 MG TABLET Carla Burdick MD documented in this encounter [facility] 11-20-2024 Note HNO ID: [id number] Author: CARLA BURDICK MD Service: ? Author Type: Physician Type: Progress Notes Filed: 11/20/2024 08:50 Note Text: [facility] SECTION [facility] REGIONAL CARDIOLOGY Cardiology ([facility]) [address] [facility] [id number] OUTPATIENT VISIT DATE PRIMARY CARE PHYSICIAN: Doreen Le [address] [place] [address] HISTORY OF PRESENT ILLNESS: Ms. Sanches is [...] 06/01/16 Mitral valve regurgitation Pacemaker 10/21/[address] TRELL VERNON [id number] pulse generator, his bundle lead, right atrial lead Peripheral arterial disease Rheumatic fever Steatosis, liver 03/26/2014 fatty liver on US. 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 Lua PACEMAKER 10/2019 PART. HYSTERECTOMY W/WO RMVL OVARIES/TUBES 1974 h/o cervical cancer ovaries remain PAST SURGICAL HISTORY OF 1996 Aortic valve repair, Dr. Apodaca PAST SURGICAL HISTORY OF 2001 [address] Beltrán, [facility] PAST SURGICAL HISTORY OF 2015 clipping and [...] hr tablet Take 1 tablet by mouth t (more content not included)... [facility] 11-15-2024 Telephone encounter Note Scheduled. Mckenzie Rodriguez MA [facility] 11-15-2024 Miscellaneous Notes Scheduled. Mckenzie Rodriguez MA I spoke to the patient over the phone regarding her test results. She has had weight loss especially over the past few days. She lost 3 pounds overnight when she weighed herself this morning. Have recommended continuing torsemide 20 mg twice daily. Will increase spironolactone to 25 mg twice daily. Plan to see the patient next Wednesday at which time we will repeat a basic metabolic panel and BNP. documented in this encounter [facility] 11-15-2024 Telephone encounter Note I spoke to the patient over the phone regarding her test results. She has had weight loss especially over the past few days. She lost 3 pounds overnight when she weighed herself this morning. Have recommended continuing torsemide 20 mg twice daily. Will increase spironolactone to 25 mg twice daily. Plan to see the patient next Wednesday at which time we will repeat a basic metabolic panel and BNP. [facility] 11-06-2024 Instructions Carla Burdick MD - 11/06/2024 3:33 PM EDT We are changing the Furosemide to Torsemide 20 mg two times per day Stop taking the Losartan documented in this encounter [facility] 11-06-2024 History of Present illness Narrative Images from the original note were not included. [facility] SECTION [facility] REGIONAL CARDIOLOGY Cardiology ([facility]) [address] [facility] [id number] OUTPATIENT VISIT DATE 11/06/2024 PRIMARY CARE PHYSICIAN: Doreen Le [address] [place] [address] HISTORY OF PRESENT ILLNESS: Ms. Sanches is [...] admitted to the hospital while vacationing in [place]. She underwent SMA stent placement. This was followed by a long admission for decompensated congestive heart failure in the setting of the renal insufficiency. Since returning from [place], she has had difficulties with weight gain [...] 06/01/16 Mitral valve regurgitation Pacemaker 10/21/[address] TRELL VERNON [id number] pulse generator, his bundle lead, right atrial lead Peripheral arterial disease Rheumatic fever Steatosis, liver 03/26/2014 fatty liver on US. 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 Lua PACEMAKER 10/2019 PART. HYSTERECTOMY W/WO RMVL OVARIES/TUBES 1974 h/o cervical cancer ovaries remain PAST SURGICAL HISTORY OF 1996 Aortic valve repair, Dr. Apodaca PAST SURGICAL HISTORY OF 2001 [address] Beltrán, [facility] PAST SURGICAL HISTORY OF 2016 clipping and [...] kg (152 lb) SpO2 100% BMI 27.80 kg/m General: Very pleasant woman sitting appears comfortable [...] palpate. CARDIOVASCULAR MEDICINE TESTING: Right Heart Catheterization [facility] 10/24/2024: Cardiac output (Qs) !4.1L/min ! + +------- + !Cardiac index !2.42L/(min-m^2) ! + +------- + !HR, R-R, stroke volume !92bpm, 45ml ! + +------- + !RA pressure a/v (m) !28/28 (23) ! + +------- + !PA pressure s/d (m) !85/28 (51) ! + +------- + !PA wedge a/v (m) !/ (23) ! + +------- + !Aortic pressure s/d (m) !163/81 (108) ! + +------- + !SVR !1650dyn-sec/cm5 ! + +------- + !SVRI !3141bnt-nnl-c^2/cm5 ! + +------- + !PVR !544dyn-sec/cm5 ! + +------- + !PVRI !975idh-agp-z^2/cm5 ! + +------- + !Total systemic resistance!2097dyn-sec/cm5, 9253zce-fma-x^2/cm5! Echocardiogram [facility] 10/03/2024: 1. Left ventricle: The cavity [...] area by the velocity-time integral method is 1.5cm^2. The valve area by the peak velocity method is 1.5cm^2. 3. Mitral valve: The leaflets are mildly thickened and calcified. Mobility was normal. The valve area (LVOT continuity) is 2.1cm^2. 4. Left atrium: The atrium is severely [...] systolic function is normal. EF = 58 5% (2D biplane) Left ventricular diastolic function [...] function is mildly decreased. EF = 51 5% (2D 4-ch.) Indeterminate left ventricular diastolic [...] function is moderately decreased. EF = 38 5% (visual est.) - The right ventricle is normal in size. Right ventricular systolic function is moderately to severely decreased. - The left atrial cavity is dilated. Small Watchman violet-device leak measuring 2mm (clip 14). - The [...] systolic function is normal. EF = 58 5% (2D biplane) Indeterminate left ventricular diastolic dysfunction due to mitral valve surgery. - The right ventricle is normal in size. Right ventricular systolic function is low normal. - The left atrial cavity is severely dilated. - There is moderate (2+) mitral valve regurgitation. Regurgitant orifice area (PISA) is 0.15 cm . - Cryolife prosthetic aortic valve (size #28). [...] systolic function is normal. EF = 60 5% (2D biplane) Grade II left ventricular diastolic dysfunction. - The right ventricle is normal in size. Right ventricular systolic function is normal. - The left atrial cavity is severely dilated. - There is moderate (2+ - 3+) mitral valve regurgitation. Regurgitant orifice area (PISA) is 0.15 cm . - Cryolife prosthetic aortic valve (size #28). [...] or suggestive of Atrial Fibrillation * AT/AF Cross: 67.8% * Total number of events: 2774 Tachycardia: AF w/RVR * Stored EGMs listed as NSVT AND SVT are consistent with or suggestive of Atrial Fibrillation with Rapid Ventricular Response * AT/AF Cross: 67.8% * Total episodes: 9 * Longest [...] underwent SMA stent placement at [facility] September 2024. She has been treated for [...] - ICD9: 433.10, 433.30, ICD10: I65.23 Carla Burdick MD documented in this encounter [facility] 11-06-2024 Note HNO ID: [id number] Author: CARLA BURDICK MD Service: ? Author Type: Physician Type: Progress Notes Filed: 11/06/2024 17:01 Note Text: [facility] SECTION OF REGIONAL CARDIOLOGY Cardiology ([facility]) [address] [facility] [id number] OUTPATIENT VISIT DATE 11/06/2024 PRIMARY CARE PHYSICIAN: Doreen Le [address] [place] [address] HISTORY OF PRESENT ILLNESS: Ms. Sanches is [...] admitted to the hospital while vacationing in [place]. She underwent SMA stent placement. This was followed by a long admission for decompensated congestive heart failure in the setting of the renal insufficiency. Since returning from [place], she has had difficulties with weight gain [...] 06/01/16 Mitral valve regurgitation Pacemaker 10/21/[address] TRELL VERNON [id number] pulse generator, his bundle lead, right atrial lead Peripheral arterial disease Rheumatic fever Steatosis, liver 03/26/2014 fatty liver on US. 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 Lua PACEMAKER 10/2019 PART. HYSTERECTOMY W/WO RMVL OVARIES/TUBES 1974 h/o cervical cancer ovaries remain PAST SURGICAL HISTORY OF 1996 Aortic valve repair, Dr. Apodaca PAST SURGICAL HISTORY OF 2001 [address] Beltrán, [facility] PAST SURGICAL HISTORY OF 2015 clipping and coil for brain aneurysm SOCIAL HISTORY Social History Tobacco Use Smoking status: Former Current packs/day: 0.00 Average packs/day: 0.3 packs/day for 2.0 years (0.5 ttl pk-yrs) Types: Cigarettes Start date: 1965 Quit date: 1968 Years since quittin.3 Smokeless tobacco: Never Vaping [...] Other: See Comments Hypotension MEDICATIONS: clopidogrel (PLAVIX) (more content not included)... [facility] 11-03-2024 Telephone encounter Note Looks like patient was seen today at heart failure clinic and had repeat labs. From notes, it looks like patient continued to refuse ER. She has an appt w/ cardiology on Wednesday and is to repeat labs at that time. [facility] 11-03-2024 Miscellaneous Notes Looks like patient was seen today at heart failure clinic and had repeat labs. From notes, it looks like patient continued to refuse ER. She has an appt w/ cardiology on Wednesday and is to repeat labs at that time. Spoke with patient's , Natanael. Patient was in background listening. Relayed message below in detail. Reiterated need for ER for IVF and lab monitoring. Both patient and spouse again declined going to the ER. stated the "kidney doctor" at [facility] said her levels are not life threatening. I reiterated that if left uncorrected patient could end up with permanent kidney damage. states "It's the Bumex that's causing it". States patient is urinating frequently which indicates to them that patients kidneys are functioning. States patients weight is stable. 145 lbs this morning. They are seeing Dr. Burdick on Wednesday11/06/24. states he is also going to try and get patient in to the "heart center" at [facility] today for the IVF. He said they do outpatient, half day treatments. He asked me if I knew anything about this and I explained to him that I personally was not familiar with this but would ask a provider here about it. They are requesting repeat labs to monitor until they see Dr. Burdick. They had an appointment with Deysi Nicholson on 11/07/24 which was canceled. They were not aware that this appointment was canceled. Time slot no longer available. Offered another appointment which they declined. Requesting labs to be ordered without appointment. Quin Lama MA Creatinine is not improved and likely will not improve at home. Need IVF and Laboratory monitoring. Patient was not d/c'd from [facility], she left AMA. MONIQUE can cause watermaster damage and if uncorrected patient could end up with permanent kidney damage. We are not allowed to force patients to stay no matter how sick they are so the fact that she was "allowed" to leave is not an indication that her lab values are not serious. Patient needs to proceed to ER as some of the medications she is on can make her kidney function worse and not better if not corrected. Spouse returns call with patient. Patient declines going back to the ER. Spouse reports that Creatinine was 2.6 at discharge from hospital and it has come down. Spouse wants labs ordered in two days to recheck. Notified again patient needed to go to the ER and patient and spouse are declining. Spouse doesn't think the levels are a matter of life and as the hospital allowed patient to return home. Noted that patient left AMA and discussed with spouse. He reports some of the doctors said it was fine but not the kidney doctor. Explained that was the need to go back and that it was important as if the numbers continue to go up her kidney condition worsens. Please review and advise, Radha Pyle, DOUG Left message for patient to return call. Patient's kidney function has gotten significantly worse and she needs to proceed to ER immediately. documented in this encounter [facility] 11-03-2024 Telephone encounter Note Called patient to review labs with patient. [...] agree with plan of care. Albin Gu APRN.CNP [facility] 11-03-2024 Miscellaneous Notes Called patient to review labs with patient. [...] agree with plan of care. Albin Gu APRN.CNP documented in this encounter [facility] 11-03-2024 History of Present illness Narrative Pt seen in outpatient CHF clinic. Lasix 20 mg IV ordered. IV started to right AC with 22g angiocath. Good blood return, no redness, no swelling. Lasix given and flushed per protocol. IV D/Cd, pressure held x 5 minutes. Dry dressing and coband applied. No bleeding, no swelling noted. Pt tolerated well. Images from the original note were not included. [facility] [place] [facility] Heart Failure Clinic OUTPATIENT VISIT DATE November 03, 2024 OUTPATIENT VISIT TYPE ESTABLISHED PRIMARY CARE PHYSICIAN: Deysi Nicholson APRN.CNP CHIEF COMPLAINT: Patient presents with: Breathing Problem [...] and was worried about traveling home to [place] in a few days. Discussed with her taking lasix as it was prescribed. As her spironolactone was stopped, did advise patient restart this at 25 mg once a day for four days only. She was instructed to call office in a week to review symptoms. On 10/15, patient presented back to [facility] for gastrointestinal bleed. She had a colonoscopy [...] and entresto. The patient wished to leave [facility] so she could return to [place]. Cardiology and Pulmonary agreed with discharge. Today, the patient reports feeling okay. Since she was hospitalized in [place], she has not felt that well. Feels very tired. Denies shortness of breath. Was seen by her PCP on Wednesday who suggested patient be admitted due to significant worsening in kidney function however, the patient and declined admission as she just returned home the day before. States she was started on bumex drip and then received oral bumex while in [place] and noted a worsening in kidney function. [...] roasted chicken, asparagus and salad. While in [place], she was very conscious about her diet. She weighed every day. She feels after the first hospitalization, she gained approx 20 lbs which she did call and discuss this with this HF VOLUNTEER SERVICES ASSISTANT. Wearing lidocaine patch over site to right side of neck as she mentions having a temporary dialysis port in place during first hospitalization. This area was bothersome to her however, she does mention the discomfort is improving. Does not have a leadlighter at this time. Can lay flat with [...] office visit Follow up appointment with Dr. Burdick on Wednesday PAST MEDICAL HISTORY Diagnosis Date [...] 06/01/16 Mitral valve regurgitation Pacemaker 10/21/[address] TRELL VERNON [id number] pulse generator, his bundle lead, right atrial lead Peripheral arterial disease Rheumatic fever Steatosis, liver 03/26/2014 fatty liver on US. 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 Lua PACEMAKER 10/2019 PART. HYSTERECTOMY W/WO RMVL OVARIES/TUBES 1973 h/o cervical cancer ovaries remain PAST SURGICAL HISTORY OF 1996 Aortic valve repair, Dr. Apoadca PAST SURGICAL HISTORY OF 2001 [address] Beltrán, [facility] PAST SURGICAL HISTORY OF 2015 clipping and [...] kg (147 lb) SpO2 100% BMI 26.89 kg/m General: Normal exam, no distress, accompanied by family Skin: No clubbing, no cyanosis. Eyes: Extra ocular movements intact Neck: Neck veins are not distended Lungs: Chest clear to auscultation Heart: Rhythm: regular rate and rhythm, Rate: normal, no murmur Abdomen: Normal Extremities: edema: 1+ BLLE Peripheral Pulses: Normal CARDIOVASCULAR MEDICINE TESTING: Latest Reference Range & Units 10/31/24 11:52 Sodium 136 - 144 [...] 8 - 15 mmol/L 11 eGFR >=60 mL/min/1.73m 19 (L) (L): Data is abnormally low [...] area by the velocity-time integral method is 1.5cm^2. The valve area by the peak velocity method is 1.5cm^2. 3. Mitral valve: The leaflets are mildly thickened and calcified. Mobility was normal. The valve area (LVOT continuity) is 2.1cm^2. 4. Left atrium: The atrium is severely [...] impression and interpretation as noted. Federico Hammonds [id number] I have personally reviewed the Laboratory Testing and Echocardiogram. COUNSELING: We discussed the following non-pharmacological measures during this visit: Smoking and alcohol abstinence/cessation, if applicable Dietary and medication compliance Monitoring daily weights and blood pressures Exercise regimen When to call our office Heart Failure Education Booklet: Previously given. Discussed red flags and when to call MD/HIM MANAGER or go to ED. Medications reconciled at end of visit: yes I spent 60 minutes in this visit, with more than 50% of the time devoted to patient counseling. SIGNATURE: Albin Gu APRN.JASPREET PATIENT NAME: Berta Sanches DATE: November 03, 2024 TIME: 0855 documented in this encounter [facility] 11-03-2024 Note HNO ID: [id number] Author: GWEN VALENTINE RN Service: ? Author [...] bleeding, no swelling noted. Pt tolerated well. [facility] 11-03-2024 Note HNO ID: [id number] Author: ALBIN GU APRN.CNP Service: ? Author Type: Nurse Practitioner Type: Progress Notes Filed: 11/03/2024 10:28 Note Text: [facility] [place] [facility] Heart Failure Clinic OUTPATIENT VISIT DATE November [...] and was worried about traveling home to [place] in a few days. Discussed with her taking lasix as it was prescribed. As her spironolactone was stopped, did advise patient restart this at 25 mg once a day for four days only. She was instructed to call office in a week to review symptoms. On 10/15, patient presented back to [facility] for gastrointestinal bleed. She had a colonoscopy [...] and entresto. The patient wished to leave [place] so she could return to [place]. Cardiology and Pulmonary agreed with discharge. Today, the patient reports feeling okay. Since she was hospitalized in [place], she has not felt that well. Feels very tired. Denies shortness of breath. Was seen by her PCP on Wednesday who suggested patient be admitted due to significant worsening in kidney function however, the patient and declined admission as she just returned home the day before. States she was started on bumex drip and then received oral bumex while in [place] and noted a worsening in kidney function. [...] roasted chicken, asparagus and salad. While in [place], she was very conscious about her diet. She weighed every day. She feels after the first hospitalization, she gained approx 20 lbs which she did call and discuss this with this HF VOLUNTEER SERVICES ASSISTANT. Wearing lidocaine patch over site to right side of neck as she mentions having a temporary dialysis port in place during first hospitalization. This area was bothersome to her however, she does mention the discomfort is improving. Does not have a leadlighter at this time. Can lay flat with [...] Based on sodium level and kidney function sug (more content not included)... [facility] 11-03-2024 Instructions Albin Gu APRN.CNP - 11/03/2024 8:51 AM EDT Continue current medications as prescribed. Consult to [...] or concern, you can call me at [phone]. documented in this encounter [facility] 11-02-2024 Telephone encounter Note Spoke with patient's , Natanael. Patient was in background listening. Relayed message below in detail. Reiterated need for ER for IVF and lab monitoring. Both patient and spouse again declined going to the ER. stated the "kidney doctor" at [facility] said her levels are not life threatening. I reiterated that if left uncorrected patient could end up with permanent kidney damage. states "It's the Bumex that's causing it". States patient is urinating frequently which indicates to them that patients kidneys are functioning. States patients weight is stable. 145 lbs this morning. They are seeing Dr. Burdick on Wednesday11/06/24. states he is also going to try and get patient in to the "heart center" at [facility] today for the IVF. He said they do outpatient, half day treatments. He asked me if I knew anything about this and I explained to him that I personally was not familiar with this but would ask a provider here about it. They are requesting repeat labs to monitor until they see Dr. Burdick. They had an appointment with Deysi Nicholson on 11/07/24 which was canceled. They were not aware that this appointment was canceled. Time slot no longer available. Offered another appointment which they declined. Requesting labs to be ordered without appointment. Quin Lama MA [facility] 11-01-2024 Telephone encounter Note Patient scheduled for 11/06/24. Irma Hwang RN [facility] 11-01-2024 Miscellaneous Notes Patient scheduled for 11/06/24. Irma Hwang RN documented in this encounter [facility] 10-31-2024 Telephone encounter Note Creatinine is not improved and likely will not improve at home. Need IVF and Laboratory monitoring. Patient was not d/c'd from [facility], she left AMA. MONIQUE can cause [facility] damage and if uncorrected patient could end up with permanent kidney damage. We are not allowed to force patients to stay no matter how sick they are so the fact that she was "allowed" to leave is not an indication that her lab values are not serious. Patient needs to proceed to ER as some of the medications she is on can make her kidney function worse and not better if not corrected. [facility] 10-31-2024 Telephone encounter Note Spouse returns call with patient. Patient declines going back to the ER. Spouse reports that Creatinine was 2.6 at discharge from hospital and it has come down. Spouse wants labs ordered in two days to recheck. Notified again patient needed to go to the ER and patient and spouse are declining. Spouse doesn't think the levels are a matter of life and as the hospital allowed patient to return home. Noted that patient left AMA and discussed with spouse. He reports some of the doctors said it was fine but not the kidney doctor. Explained that was the need to go back and that it was important as if the numbers continue to go up her kidney condition worsens. Please review and advise, Radha Pyle RN [facility] 10-31-2024 Telephone encounter Note Left message for patient to return call. Patient's kidney function has gotten significantly worse and she needs to proceed to ER immediately. [facility] 10-31-2024 Note HNO ID: [id number] Author: SHAYE DOMINGO APRN.JASPREET Service: ? Author Type: Nurse Practitioner Type: Progress Notes Filed: 10/31/2024 12:52 Note Text: Chief Complaint Patient presents with: Hospital F/U HPI Berta Sanches is a 79 year old female who presents here today for Above Complaints.. Acute Mesenteric Ischemia: - Initially admitted to [facility] on 10/02/2024. - Underwent femoral ultrasound-guided angiogram with angioplasty and stenting of the SMA. - Required CRRT for MONIQUE post-op. - Developed AFib with RVR post-op. - Discharged after 23-day hospitalization. Acute on Chronic Heart Failure: - Given IV Lasix during initial admission. - Readmitted to [facility] on 10/15/2024 for acute on chronic decompensated [...] 06/01/16 Mitral valve regurgitation Pacemaker 10/21/[address] TRELL VERNON [id number] pulse generator, his bundle lead, right atrial lead Peripheral arterial disease (HCC) Rheumatic fever Steatosis, liver 03/26/2014 fatty liver on US. 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 Lua PACEMAKER 10/2019 PART. HYSTERECTOMY W/WO RMVL OVARIES/TUBES 1973 h/o cervical cancer ovaries remain PAST SURGICAL HISTORY OF 1996 Aortic valve repair, Dr. Apodaca PAST SURGICAL HISTORY OF 2001 [address] Beltrán, [facility] PAST SURGICAL HISTORY OF 2015 clipping and [...] XL) 50 mg 24 hr tablet Take (more content not included)... [facility] 10-31-2024 History of Present illness Narrative Chief Complaint Patient presents with: Hospital F/U HPI Berta Sanches is a 79 year old female who presents here today for Above Complaints.. Acute Mesenteric Ischemia: - Initially admitted to [facility] on 10/02/2024. - Underwent femoral ultrasound-guided angiogram with angioplasty and stenting of the SMA. - Required CRRT for MONIQUE post-op. - Developed AFib with RVR post-op. - Discharged after 23-day hospitalization. Acute on Chronic Heart Failure: - Given IV Lasix during initial admission. - Readmitted to [facility] on 10/15/2024 for acute on chronic decompensated [...] 06/01/16 Mitral valve regurgitation Pacemaker 10/21/[address] TRELL VERNON [id number] pulse generator, his bundle lead, right atrial lead Peripheral arterial disease (HCC) Rheumatic fever Steatosis, liver 03/26/2014 fatty liver on US. 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 Lua PACEMAKER 10/2019 PART. HYSTERECTOMY W/WO RMVL OVARIES/TUBES 1974 h/o cervical cancer ovaries remain PAST SURGICAL HISTORY OF 1996 Aortic valve repair, Dr. Apodaca PAST SURGICAL HISTORY OF 2001 [address] Beltrán, [facility] PAST SURGICAL HISTORY OF 2016 clipping and coil for brain aneurysm Family [...] Wt 64.4 kg (142 lb) BMI 25.97 kg/m General Appearance: Well appearing, alert, in no [...] CONSULT TO PHYSICAL THERAPY - CONSULT TO ENGLISH LECTURER 6. Acute on chronic diastolic congestive heart failure (HCC) - ICD9: 428.33, 428.0, ICD10: I50.33 - HFpEF 50+ - Compensated - Continue current medications - Encouraged sodium restriction - Encouraged daily weights - Call if 3 lbs gained in 1 days - Will contact Dr. Burdick's office for sooner follow up to discuss recommendations from cardiology/nephrology from [facility]. 7. Hospital discharge follow-up - ICD9: V67.59, ICD10: Z09 -23 days inpatient at [facility]. Shaye Domingo APRN.CNP documented in this encounter [facility] 10-12-2024 Telephone encounter Note Patient called to schedule appt in HF Clinic. Patient also mentions she is currently in [place]. She was admitted to the hospital for [...] questions answered at this time. Albin Gu APRN.CNP [facility] 10-12-2024 Miscellaneous Notes Patient called to schedule appt in HF Clinic. Patient also mentions she is currently in [place]. She was admitted to the hospital for [...] questions answered at this time. Albin Gu APRN.JASPREET documented in this encounter [facility] 07-31-2024 Telephone encounter Note Pt called to request refill for KDur as she has run out of prescription. She states that she is currently in [place] and will be in [place] until October. [facility] called in [place], [place]. Spoke with Pharmacist on duty. Rx for KDur 10 meq PO daily given verbally #90 with no refills. Melida Koo APRN.JASPREET [facility] Work Phone: 07-31-2024 Miscellaneous Notes Pt called to request refill for KDur as she has run out of prescription. She states that she is currently in [place] and will be in [place] until October. [facility] called in [place], [place]. Spoke with Pharmacist on duty. Rx for KDur 10 meq PO daily given verbally #90 with no refills. Melida Koo APRN.CNP documented in this encounter [facility] 07-07-2024 Note HNO ID: [id number] Author: SIGIFREDO RIVERA LPN Service: ? Author Type: LICENSED [...] assessed by LIP pre and post procedure [facility] 07-07-2024 Note HNO ID: [id number] Author: DEYSI NICHOLSON APRN.JASPREET Service: ? Author Type: Nurse Practitioner Type: Progress Notes Filed: 07/07/2024 12:41 Note Text: This is a 78 year old female who presents today with: Patient presents with: Establish Care HISTORY OF PRESENT ILLNESS: Berta Sanches is a 78 year old female. Patient presents with: Establish Care Pt presents today to [facility]. HTN: Patient is compliant with meds Yes. [...] 06/01/16 Mitral valve regurgitation Pacemaker 10/21/[address] TRELL VERNON [id number] pulse generator, his bundle lead, right atrial lead Peripheral arterial disease (HCC) Rheumatic fever Steatosis, liver 03/26/2014 fatty liver on US. 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 Lua PACEMAKER 10/2019 PART. HYSTERECTOMY W/WO RMVL OVARIES/TUBES 1974 h/o cervical cancer ovaries remain PAST SURGICAL HISTORY OF 1996 Aortic valve repair, Dr. Apodaca PAST SURGICAL HISTORY OF 2001 [address] Beltrán, [facility] PAST SURGICAL HISTORY OF 2015 clipping and [...] times daily. Dx: Type 2 DM - (more content not included)... [facility] 04-07-2024 Instructions Albin Gu APRN.JASPREET - 04/07/2024 9:18 AM EDT Continue current medications as prescribed. You can [...] or concern, you can call me at [phone]. documented in this encounter [facility] 04-07-2024 History of Present illness Narrative Images from the original note were not included. [facility] [place] [facility] Heart Failure Clinic OUTPATIENT VISIT DATE April [...] day and added spironolactone. Follows with Dr. Burdick and was last seen in January. Past [...] a boat and take it out on [place] to fish. IMPRESSION: NYHA Functional Class: II [...] 06/01/16 Mitral valve regurgitation Pacemaker 10/21/[address] TRELL VERNON [id number] pulse generator, his bundle lead, right atrial lead Peripheral arterial disease (HCC) Rheumatic fever Steatosis, liver 03/26/2014 fatty liver on US. 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 Lua PACEMAKER 10/2019 PART. HYSTERECTOMY W/WO RMVL OVARIES/TUBES 1973 h/o cervical cancer ovaries remain PAST SURGICAL HISTORY OF 1996 Aortic valve repair, Dr. Apodaca PAST SURGICAL HISTORY OF 2001 [address] Beltrán, [facility] PAST SURGICAL HISTORY OF 2015 clipping and [...] kg (137 lb) SpO2 98% BMI 25.06 kg/m General: Normal exam, no distress, accompanied by [...] systolic function is normal. EF = 58 5% (2D biplane) Left ventricular diastolic function [...] function is mildly decreased. EF = 51 5% (2D 4-ch.) Indeterminate left ventricular diastolic [...] * Heart Rate Histograms reviewed AP 45%, FURNITURE FINISHER HELPER 10.4% Title: Tachycardia: AF * Stored EGMs are consistent with or suggestive of Atrial Fibrillation * AT/AF Cross: 38.7% * Total number of events: 4,598 Title: Non-sustained Ventricular Tachycardia * Stored EGMs are consistent with or suggestive of Non-sustained VT * Total episodes: 1 Latest Reference Range & Units 02/03/24 10:02 Sodium 136 - 144 [...] BNP <450 pg/mL 8,577 (H) eGFR >=60 mL/min/1.73m 43 (L) (L): Data is abnormally low [...] Discussed red flags and when to call MD/HIM MANAGER or go to ED. Medications reconciled at end of visit: yes I spent 30 minutes in this visit, with more than 50% of the time devoted to patient counseling. SIGNATURE: Albin Gu APRN.CNP PATIENT NAME: Berta Sanches DATE: April 07, 2024 TIME: 904 documented in this encounter [facility] 04-07-2024 Note HNO ID: [id number] Author: ALBIN GU APRN.CNP Service: ? Author Type: Nurse Practitioner Type: Progress Notes Filed: 04/07/2024 09:57 Note Text: [facility] [place] [facility] Heart Failure Clinic OUTPATIENT VISIT DATE April [...] day and added spironolactone. Follows with Dr. Burdick and was last seen in January. Past medical history is significant for hypertension, hyperlipidemia, valvular heart disease s/p aortic valve replacement, history of brain aneurysm s/p coiling, SSS s/p pacemaker 10/2020, A-fib, s/p Watchman 2022, history of rectal bleeding, diabetes mellitus. The [...] a boat and take it out on [place] to fish. IMPRESSION: NYHA Functional Class: II [...] 50-69% stenosis right and left Bilateral pneumonia 07/20/ (more content not included)... [facility] 02-21-2024 Telephone encounter Note Called and spoke with patient regarding NTpBNP. Discussed that level has decreased with increase in her diuretics for a short period of time for increased symptoms. Discussed that we were looking for decrease from result drawn 2 weeks ago during exacerbation, which was noted. She reports that she is feeling well. Weight is much improved and she is keeping it down. She denies SOB with exertion or at rest, PND, orthopnea, or the presence of edema. She will continue on her current medications at current doses. She will follow up with Cruz Gu CNP in April however, should she have an increase in her symptoms, she can call office and she can be seen sooner. Pt states understanding of plan of care. Melida Koo APRN.CNP [facility] Work Phone: 02-21-2024 Miscellaneous Notes Called and spoke with patient regarding NTpBNP. Discussed that level has decreased with increase in her diuretics for a short period of time for increased symptoms. Discussed that we were looking for decrease from result drawn 2 weeks ago during exacerbation, which was noted. She reports that she is feeling well. Weight is much improved and she is keeping it down. She denies SOB with exertion or at rest, PND, orthopnea, or the presence of edema. She will continue on her current medications at current doses. She will follow up with Cruz Gu CNP in April however, should she have an increase in her symptoms, she can call office and she can be seen sooner. Pt states understanding of plan of care. Melida Koo APRN.JASPREET documented in this encounter [facility] 02-07-2024 Telephone encounter Note Spoke to and informed her of Maribell's response and recommendations. Patient voiced understanding. States she spoke to HF clinic and they informed her to do the same and to recheck BNP next week. Patient states weight and SOB did improve with increased dose. She lost a little over 5 pounds. Patient she will follow their directions and will have results sent to Maribell as well. Ying Fuentes LPN [facility] 02-07-2024 Miscellaneous Notes Spoke to and informed her of Maribell's response and recommendations. Patient voiced understanding. States she spoke to HF clinic and they informed her to do the same and to recheck BNP next week. Patient states weight and SOB did improve with increased dose. She lost a little over 5 pounds. Patient she will follow their directions and will have results sent to Maribell as well. Ying Fuentes LPN Patient should double Lasix to 40 mg BID for 3 days, then recheck BMP that has been ordered per PCP. Please ask patient to monitor daily weights. Maribell King APRN.CNP I spoke to and informed them of Maribell's response to lab results and recommendations. Patient voiced understanding. Patient states BNP is elevated from 2 months ago. Patient asking if she should make any changes. Patient c/o weight gain and SOB with activity. Ying Fuentes LPN ----- Message from Maribell King APRN.CNP sent at 02/04/2024 2:02 PM EDT ----- Please call the patient and report lab results revealed stable kidney function, normal potassium level, normal liver function, cholesterol is under good control, and elevated BNP. Maribell King APRN.CNP documented in this encounter [facility] 02-07-2024 Telephone encounter Note Patient should double Lasix to 40 mg BID for 3 days, then recheck BMP that has been ordered per PCP. Please ask patient to monitor daily weights. Maribell King APRN.CNP [facility] 02-07-2024 Telephone encounter Note Pt called and left message on voicemail stating that she was feeling much better since following instructions that Albin Aurin had given her. She reported that SOB and edema was improved. She has concerns about NTpBNP and when she should have that rechecked. Called patient and she did not answer. Message left for call back. Melida Koo APRN.JASPREET [facility] Work Phone: 02-07-2024 Miscellaneous Notes Pt called and left message on voicemail stating that she was feeling much better since following instructions that Albin Aurin had given her. She reported that SOB and edema was improved. She has concerns about NTpBNP and when she should have that rechecked. Called patient and she did not answer. Message left for call back. Melida Koo APRN.JASPREET documented in this encounter [facility] 02-04-2024 Telephone encounter Note I spoke to and informed them of Maribell's response to lab results and recommendations. Patient voiced understanding. Patient states BNP is elevated from 2 months ago. Patient asking if she should make any changes. Patient c/o weight gain and SOB with activity. Ying Fuentes LPN [facility] 02-04-2024 Telephone encounter Note ----- Message from Maribell King APRN.CNP sent at 02/04/2024 2:02 PM EDT ----- Please call the patient and report lab results revealed stable kidney function, normal potassium level, normal liver function, cholesterol is under good control, and elevated BNP. Maribell King APRN.CNP [facility] 02-04-2024 Telephone encounter Note Returned patient phone call regarding increase in weight and elevated NT BNP. Weight is 143 lbs. She has been taking total of 60 mg lasix for 4 days. Labs were recently ordered by cardiology. Pt does have historically elevated NT BNP however, most recent is higher. Discussed the patient coming in to office same day for IV lasix however, patient not able to come in. Will instruct patient to take additional 40 mg lasix in the afternoon for a total of 80 mg for 3 days. She is to take additional tablet of potassium for 2 days. Will schedule her for IV lasix on Wednesday should she need. Plan of care reviewed with patient. All questions answered at this time. Albin Gu APRN.CNP [facility] 02-04-2024 Miscellaneous Notes Returned patient phone call regarding increase in weight and elevated NT BNP. Weight is 143 lbs. She has been taking total of 60 mg lasix for 4 days. Labs were recently ordered by cardiology. Pt does have historically elevated NT BNP however, most recent is higher. Discussed the patient coming in to office same day for IV lasix however, patient not able to come in. Will instruct patient to take additional 40 mg lasix in the afternoon for a total of 80 mg for 3 days. She is to take additional tablet of potassium for 2 days. Will schedule her for IV lasix on Wednesday should she need. Plan of care reviewed with patient. All questions answered at this time. Albin Gu APRN.CNP documented in this encounter [facility] 01-17-2024 Instructions Carla Burdick MD - 01/17/2024 10:08 AM EDT We will repeat fasting blood work documented in this encounter [facility] 01-17-2024 History of Present illness Narrative Images from the original note were not included. [facility] SE[facility] CARDIOLOGY Cardiology ([facility]) [address] [facility] [id number] OUTPATIENT VISIT DATE 01/17/2024 PRIMARY CARE PHYSICIAN: Doreen Le [address] [place] [address] HISTORY OF PRESENT ILLNESS: Ms. Sanches is a 78 year old woman with a history of remote aortic valve replacement with homograft in 1996 and possible repair of the ascending aorta, chronic diastolic congestive heart failure, hypertension, dyslipidemia, atrial fibrillation with history of pulmonary vein isolation procedures, pacemaker placement and watchman procedure who presents for follow-up. Patient was admitted to the hospital in November with acute congestive heart failure. She had had a month of slowly increasing weight and lower extremity edema by the time she presented. She has been much more diligent with following a low-sodium diet. She has been compliant with her Lasix 40 mg daily with increases to 60 mg daily as needed. She denies symptoms consistent with PND orthopnea. She still has some mild swelling in her legs. She describes shortness of breath on exertion. She denies symptoms of chest pain or pressure. She has not had palpitations, lightheadedness, dizziness, [...] 06/01/16 Mitral valve regurgitation Pacemaker 10/21/[address] TRELL VERNON [id number] pulse generator, his bundle lead, right atrial lead Peripheral arterial disease (HCC) Rheumatic fever Steatosis, liver 03/26/2014 fatty liver on US. No gallstones Tachy-pavan syndrome (HCC) PAST SURGICAL HISTORY Procedure Laterality Date ABLATION 2018 for afib ANESTHESIA EXTERNAL MIDDLE & INNER EAR W/BX NOS 2002, 2004,04/30/15 CARDIOVERSION 2018 EGD 02/28/2021 ESOPHAGOGASTRODUODENOSCOPY TRANSORAL DIAGNOSTIC 02/28/2021 LAP COLECTOMY, SIGMOID W/SUPERVISING LIBRARIAN 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 Lua PACEMAKER 10/2019 PART. HYSTERECTOMY W/WO RMVL OVARIES/TUBES 1974 h/o cervical cancer ovaries remain PAST SURGICAL HISTORY OF 1996 Aortic valve repair, Dr. Apodaca PAST SURGICAL HISTORY OF 2001 [address] Beltrán, [facility] PAST SURGICAL HISTORY OF 2016 clipping and coil for brain aneurysm SOCIAL HISTORY Social History Tobacco Use Smoking status: Former Packs/day: 0.25 Years: 2.00 Additional pack years: 0.00 Total pack years: 0.50 Types: Cigarettes Quit date: 1967 Years since quittin.5 Smokeless tobacco: Never Vaping Use Vaping Use: Never used Substance Use Topics Alcohol use: Not Currently [...] MEDICATIONS: spironolactone (ALDACTONE) 25 mg tablet Take 0.5 tablets by mouth once daily. potassium chloride (K-TAB) 10 mEq tablet Take 1 tablet by mouth once daily. omeprazole (PRILOSEC) 40 mg capsule Take 1 capsule by mouth once daily. metoprolol succinate ER (TOPROL XL) 50 mg 24 hr tablet Take 1 tablet by mouth two times a day. losartan (COZAAR) 50 mg tablet Take 1 tablet by mouth once daily. simvastatin (ZOCOR) 20 mg tablet Take 1 tablet by mouth daily at bedtime. Blood Pressure Monitor (BLOOD PRESSURE KIT) 1 Each once daily. acetaminophen (TYLENOL) 500 mg tablet Take 1-2 tablets by mouth every 6 hours as needed. blood sugar diagnostic (BLOOD GLUCOSE TEST) test strip Test blood sugar(s) 2 times daily. Dx: Type 2 DM - Controlled E11.9 Insulin: No UBIDECARENONE (COQ-10 ORAL) Take 1 capsule by mouth once daily. furosemide (LASIX) 20 mg tablet Take 2 tablets by mouth once daily. TAKE AN EXTRA 20 MG in the afternoon if you note greater than 3 lbs weight gain in 24 hours aspirin 81 mg chewable tablet Take 1 tablet by mouth once daily. REVIEW OF SYSTEMS: Review of Systems Constitutional: [...] Psychiatric/Behavioral: Negative for depression. PHYSICAL EXAMINATION: BP 157/59 Pulse 64 Ht 157.5 cm (5' 2") Wt 66.8 kg (147 lb 3.2 oz) SpO2 99% BMI 26.92 kg/m General: Very pleasant woman sitting appears comfortable [...] right upper sternal border. Extremities: Warm, well-perfused, 1+ pretibial pitting edema left lower extremity. Minimal edema on the right. Dorsalis pedis and posterior tibial pulses are 2+ and symmetric. CARDIOVASCULAR MEDICINE TESTING: Echocardiogram 11/10/2023: - The left ventricle is mildly dilated. Left ventricular systolic function is normal. EF = 58 5% (2D biplane) Left ventricular diastolic function [...] function is mildly decreased. EF = 51 5% (2D 4-ch.) Indeterminate left ventricular diastolic [...] function is moderately decreased. EF = 38 5% (visual est.) - The right ventricle is normal in size. Right ventricular systolic function is moderately to severely decreased. - The left atrial cavity is dilated. Small Watchman violet-device leak measuring 2mm (clip 14). - The [...] systolic function is normal. EF = 58 5% (2D biplane) Indeterminate left ventricular diastolic dysfunction due to mitral valve surgery. - The right ventricle is normal in size. Right ventricular systolic function is low normal. - The left atrial cavity is severely dilated. - There is moderate (2+) mitral valve regurgitation. Regurgitant orifice area (PISA) is 0.15 cm . - [employer] prosthetic aortic valve (size #28). [...] systolic function is normal. EF = 60 5% (2D biplane) Grade II left ventricular diastolic dysfunction. - The right ventricle is normal in size. Right ventricular systolic function is normal. - The left atrial cavity is severely dilated. - There is moderate (2+ - 3+) mitral valve regurgitation. Regurgitant orifice area (PISA) is 0.15 cm . - [employer] prosthetic aortic valve (size #28). There is [...] atherosclerotic plaque. DUAL LEAD PPM REMOTE EVALUATION 10/11/2023: PRESENTING EGM: AT/VS BATTERY STATUS: Estimated time remaining to YUE is 11.1 years COUNTERS SINCE: 06/04/2023 ATRIAL ARRHYTHMIAS: There have been 4672 AT/AF detections with current episode ongoing since 06/14/23. Total time 95.4 % Anticoagulants listed: Plavix and aspirin. Dr. Washington updated about continued spike in AF. VENTRICULAR ARRHYTHMIAS: There have been 22 Ventricular detections. Available EGMs show AF with RVR LEAD MEASUREMENTS: Sensing and capture are appropriate. Review of the lead impedance trends are normal. OTHER DIAGNOSTICS: RA pacing 7.6%. LBB pacing 18.9%. IMPRESSION: Ms. Sanches is a 78 year [...] artery disease noted on prior testing. She has been treated for paroxysmal atrial fibrillation and has undergone an ablation procedure. Her atrial fibrillation is now persistent. She has had a watchman device placed due to history of GI bleed and intolerance to anticoagulation therapy. She has a dual-chamber pacemaker placement for sinus node dysfunction and chronotropic incompetence. She has a history of chronic diastolic congestive heart failure in the setting of chronic kidney disease. She presents the office for follow-up. PLAN AND RECOMMENDATIONS: 1. History of prosthetic aortic valve replacement - ICD9: V43.3, ICD10: Z95.2 (primary diagnosis) Patient with bioprosthetic aortic valve insufficiency as well as mitral and tricuspid regurgitation. Likely repeat an echocardiogram in 6 months. 2. H/O rheumatic heart disease - ICD9: V12.59, ICD10: Z86.79 3. Longstanding persistent atrial fibrillation (HCC) - ICD9: 427.31, ICD10: I48.11 Patient is status post Watchman procedure. Not on anticoagulation therapy due to history of GI bleed 4. Ascending aorta dilatation (HCC) - ICD9: 447.71, ICD10: I77.810 5. Dilated cardiomyopathy (HCC) - ICD9: 425.4, ICD10: I42.0 7. Chronic diastolic (congestive) heart failure (HCC) - ICD9: 428.32, 428.0, ICD10: I50.32 Continue current dosing of Lasix and low-dose spironolactone. She will need repeat basic metabolic panel due to her risk of developing hyperkalemia - FUROSEMIDE 20 MG TABLET - SPIRONOLACTONE 25 MG TABLET - NT PRO BNP - COMPREHENSIVE METABOLIC PANEL - FUROSEMIDE 20 MG TABLET - SPIRONOLACTONE 25 MG TABLET 8. SSS (sick sinus syndrome) (HCC) - ICD9: 427.81, ICD10: I49.5 9. Primary hypertension - ICD9: 401.9, ICD10: I10 Adequate control on current regimen. 10. Hyperlipidemia with target LDL less than 70 - ICD9: 272.4, ICD10: E78.5 Maintained on simvastatin 20 mg daily. Repeat fasting blood work - SIMVASTATIN 20 MG TABLET - LIPID PANEL BASIC - SIMVASTATIN 20 MG TABLET 11. S/P placement of cardiac pacemaker - ICD9: V45.01, ICD10: Z95.0 12. PAD (peripheral artery disease) (HCC) - ICD9: 443.9, ICD10: I73.9 Carla Burdick MD documented in this encounter [facility] 01-17-2024 Note HNO ID: [id number] Author: CARLA BURDICK MD Service: ? Author Type: Physician Type: Progress Notes Filed: 01/17/2024 10:36 Note Text: [facility] CARDIOLOGY Cardiology ([facility]) [address] [facility] [id number] OUTPATIENT VISIT DATE 01/17/2024 PRIMARY CARE PHYSICIAN: oDreen Le [address] [place] [address] HISTORY OF PRESENT ILLNESS: Ms. Sanches is a 78 year old woman with a history of remote aortic valve replacement with homograft in 1996 and possible repair of the ascending aorta, chronic diastolic congestive heart failure, hypertension, dyslipidemia, atrial fibrillation with history of pulmonary vein isolation procedures, pacemaker placement and watchman procedure who presents for follow-up. Patient was admitted to the hospital in November with acute congestive heart failure. She had had a month of slowly increasing weight and lower extremity edema by the time she presented. She has been much more diligent with following a low-sodium diet. She has been compliant with her Lasix 40 mg daily with increases to 60 mg daily as needed. She denies symptoms consistent with PND orthopnea. She still has some mild swelling in her legs. She describes shortness of breath on exertion. She denies symptoms of chest pain or pressure. She has not had palpitations, lightheadedness, dizziness, [...] 06/01/16 Mitral valve regurgitation Pacemaker 10/21/[address] TRELL VERNON [id number] pulse generator, his bundle lead, right atrial lead Peripheral arterial disease (HCC) Rheumatic fever Steatosis, liver 03/26/2014 fatty liver on US. 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 Lua PACEMAKER 10/2019 PART. HYSTERECTOMY W/WO RMVL OVARIES/TUBES 1973 h/o cervical cancer ovaries remain PAST SURGICAL HISTORY OF 1996 Aortic valve repair, Dr. Apodaca PAST SURGICAL HISTORY OF 2001 [address] Beltrán, [facility] PAST SURGICAL HISTORY OF 2015 clipping and coil for brain aneurysm SOCIAL HISTORY Social History Tobacco Use Smoking status: Former Packs/day: 0.25 Years: 2.00 Additional pack years: 0.00 Total pack years: 0.50 Types: Cigarettes Quit date: 1967 Years since quittin.5 Smokeless tobacco: Never Vaping Use Vaping Use: Never used Substance Use Topics Alcohol use: Not Currently [...] MEDICATIONS: spironolactone (ALDACTONE) 25 mg tablet Take 0.5 tablets by mouth once daily. pota (more content not included)... [facility] 12-07-2023 Instructions Deysi Nicholson APRN.JASPREET - 12/07/2023 12:13 PM EDT Continue the same medications. If no better or worsening, start the antibiotic. Start mucinex or coricidin. Let us know if no improvement/worsening. documented in this encounter [facility] 12-07-2023 History of Present illness Narrative This is a 78 year old female who presents today with: Patient presents with: Acute Visit: Cough, chest congestion, swollen glands x 2-3 weeks HISTORY OF PRESENT ILLNESS: Berta Sanches is a 78 year old female. Patient presents with: Acute Visit: Cough, chest congestion, swollen glands x 2-3 weeks Pt presents today with complaint of deep cough in her chest. Not feeling well. Glands are swollen. Ears hurt. Refers that she has had the cough for awhile. Refers that she noticed the swollen glands yesterday and the day before. No SOB. Breathing okay. Refers that she is expectorating some yellow mucus. Refers that she has had cold and sweatiness. Refers that she has been sneezing a lot. + head congestion. Does admit that she feels a little better today than yesterday. Has been taking tylenol and tessalon perles. PAST MEDICAL HISTORY: PAST MEDICAL HISTORY Diagnosis [...] 06/01/16 Mitral valve regurgitation Pacemaker 10/21/[address] TRELL VERNON [id number] pulse generator, his bundle lead, right atrial lead Peripheral arterial disease (HCC) Rheumatic fever Steatosis, liver 03/26/2014 fatty liver on US. 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 Lua PACEMAKER 10/2019 PART. HYSTERECTOMY W/WO RMVL OVARIES/TUBES 1974 h/o cervical cancer ovaries remain PAST SURGICAL HISTORY OF 1996 Aortic valve repair, Dr. Apodaca PAST SURGICAL HISTORY OF 2001 [address] Beltrán, [facility] PAST SURGICAL HISTORY OF 2015 clipping and coil for brain aneurysm ALLERGIES Protamine and Propofol MEDICATIONS Current Outpatient Medications Medication Sig spironolactone (ALDACTONE) 25 mg tablet Take 0.5 tablets by mouth once daily. furosemide (LASIX) 20 mg tablet Take 2 tablets by mouth once daily. TAKE AN EXTRA 20 MG in the afternoon if you note greater than 3 lbs weight gain in 24 hours potassium chloride (K-TAB) 10 mEq tablet Take 1 tablet by mouth once daily. ferrous sulfate (IRON) 325 mg (65 mg iron) tablet Take 1 tablet by mouth once daily. omeprazole (PRILOSEC) 40 mg capsule Take 1 capsule by mouth once daily. metoprolol succinate ER (TOPROL XL) 50 mg 24 hr tablet Take 1 tablet by mouth two times a day. losartan (COZAAR) 50 mg tablet Take 1 tablet by mouth once daily. simvastatin (ZOCOR) 20 mg tablet Take 1 tablet by mouth daily at bedtime. Blood Pressure Monitor (BLOOD PRESSURE KIT) 1 [...] Take 1 capsule by mouth once daily. Current Facility-Administered Medications Medication Dose Route Frequency perflutren lipid microspheres 1.3 mL in NaCl (PF) 0.9% 10 mL injection (DEFINITY) INTRAVENOUS DIRECTED PRN sodium chloride 0.9 % (flush) 10 mL (BD POSIFLUSH) 10 mL INTRAVENOUS DIRECTED PRN FAMILY HISTORY Problem Relation Age of Onset other (Heart Problems) Mother other (myocardial infarction) Mother other (cardiovascular disease) Mother other (Heart Attack) Father other (cardiovascular disease) Father Diabetes Maternal Grandmother Social History Tobacco Use Smoking status: Former Packs/day: 0.25 Years: 2.00 Additional pack years: 0.00 Total pack years: 0.50 Types: Cigarettes Quit date: 1967 Years since quittin.4 Smokeless tobacco: Never Vaping Use Vaping Use: Never used Substance Use Topics Alcohol use: Not Currently Alcohol/week: 1.0 standard drink of alcohol Types: 1 Glasses of Wine (5oz) per week Comment: red wine 2-3 times a week- occasional Drug use: No EXAM: BP 128/76 Pulse 68 Resp 16 SpO2 97% PHYSICAL EXAM: General Appearance: Well appearing, alert, in no acute distress, well-hydrated, well nourished.. Skin: Skin color, texture, turgor normal, no suspicious rashes or lesions. Head: Normocephalic, no masses, lesions, tenderness or abnormalities. Eyes: Anicteric sclera. Pupils are equally round and reactive to light. Extraocular movements are intact. . Ears: External ears normal, canals clear. Normal TMs bilaterally. Oropharynx: Lips, mucosa, and tongue normal, teeth and gums normal, oropharynx normal. Neck: Supple, no adenopathy Lungs: Lungs clear to auscultation. No wheezing, rhonchi, rales.. Heart: RRR without murmur, gallop, or rubs. No ectopy. Extremities: No deformities, edema, skin discoloration, clubbing or cyanosis. Good capillary refill. Neurologic: Gait normal. ASSESSMENT/PLAN: 1. URI, acute - ICD9: 465.9, ICD10: J06.9 - Discussed viral etiology and rationale for treatment. - Symptomatic treatment with prn analgesia - Supportive care with fluids and rest Since she admits to feeling a little better today, discussed continuing to monitor. If she doesn't have continued improvement or worsening, start Augmentin. Voices understanding and agreeable to plan. Discussed treatment plan and patient voices understanding. Patient's questions answered appropriately. Medications and potential side effects were discussed and patient voices understanding. Return to the office as scheduled or as needed for worsening/no improvement. Deysi Nicholson APRN.SIGN BOARD ERECTOR documented in this encounter [facility] 11-26-2023 History of Present illness Narrative ACM CECY RN Patient identified by name and date of . Reason for review or outreach: Chart Review Cecy Priority Emergency Department Utilization REQUESTED ACTION/FYI: Please see ED Utilization summary below: 2 ED visits(eloped from one) w/ 1 admit: PT WAS SENT TO ED BY CARD FOR ADMISSION/ UNSURE WHY SHE WAS NOT A DIRECT ADMIT. Note sent to Bere Boykin CNP re: possible direct admit next time and referral to Chronic Care for ongoing management. 11-08-23 ED/ eloped due to wait time 11-09-23 ED/ admit for Ac on chronic CHF Note to PCP as well, requesting referral to Chronic Care/ CHF nurses. Utilization in past 6 months: # Occurrences Date Last Occurrence Hospital Admission 1 11-08 to 11-12-23 Hospital Observation 0 na ED 2 11-09-23 SNF / Acute Rehab / LTAC 0 na ED DIAGNOSES/REASON(S) FOR ED USE: asc on chronic CHF, sent by Cardiology to ED for planned admit OTHER FINDINGS/SUMMARY: unsure why Card didn't just directly admit pt. Patient Attributed To: PEDROE Payer: Giuseppehernandezcarmelina CORDOBA Action Taken: Encounter routed to provider Contact made with patient: No, Chart review only. Signature: Valentine Meneses RN documented in this encounter [facility] 11-25-2023 Instructions Albin Gu APRN.SIGN BOARD ERECTOR - 11/25/2023 10:56 AM EDT Continue current medications as prescribed. START taking 40 mg lasix ( 2 tablets instead of 3 tablets). RESTART spironolactone at 12.5 mg (1/2 tablet). Labs (BMP) to be drawn in 1 week. You may take additional 20 mg lasix in the afternoon for weight gain 3 lb in 1-2 days. Monitor blood pressure 3-4 hours after morning medication. Call office with readings IF they are consistently above 140 mmHg. 2. Weigh yourself daily. Call me if your weight increases by 3-4 pounds in a 1-4 day period of time. 3. Continue low salt (2000 mg per day) diet. 4. Be as active as you are able. If you get tired, just stop and rest for a while. 5. Come back and see me on April 06 at 0900. If you have any question or concern, you can call me at [phone]. documented in this encounter [facility] 11-25-2023 History of Present illness Narrative Images from the original note were not included. Heart [facility] V[facility] OUTPATIENT VISIT DATE November 23, 2023 OUTPATIENT VISIT TYPE NEW PRIMARY CARE PHYSICIAN: Doreen Le PA-C REFERRING PHYSICIAN: No referring provider defined for this encounter. CHIEF COMPLAINT: Patient presents with: Breathing Problem Leg Edema HISTORY OF PRESENT ILLNESS: Berta Sanches is a 78 year old female who presents today for an initial visit to the Heart Failure Clinic. The patient is established with Dr. Burdick and was last seen in office 11/07. Sent to ER for fluid overload. Past medical history is significant for hypertension, [...] of discharge) Today, the patient reports feeling okay. Presents to appt with . Denies shortness of breath, chest pain, fever, chills, dizziness, lightheadedness. Weight at home was 147 lbs. Has her folder with her from the Heart Failure nurses while she was admitted. The patient states she does not drink as much fluid as she should. However, she does mention drinking only up to 64 ounces. Of note, she mentions not eating as much during her stay as she did not like the food. Mentions having significant leg swelling prior to coming to the hospital. States she was not able to bend her legs. The patient states she was told she may need iron fusions; however, as she has been taking oral iron, her iron studies showed improvement during last lab draw. Of note, on 11/18 she called HF Clinic to report increase in weight. She was instructed to take additional lasix for two days. This did not improve weight. Watches her sodium and fluids. Her spironolactone was held 11/03 by her PCP due to dehydration. She does have a history of atrial fibrillation. Does not feel she is in atrial fibrillation all of the time. Rarely feels palpitations. She feels this symptom could occur during physical activity. states she gets tired more frequently than she has in the past however, he gives a timeline of over 5 years ago. Was in [place] over the winter for 3 months. Noticed leg swelling while down in [place]. Went to urgent care while down there when she experienced redness to her lower leg along with noticing weeping. Testing was negative for blood clot per the patient. Wears compression stockings most of the time, per the patient. If she is on her feet or traveling she will wear. States she has been on lasix since 2021. IMPRESSION: NYHA Functional Class: II Stage: C heart failure Berta Sanches is a 78 year-old female who presents to the Heart Failure Clinic to establish care. She appears euvolemic on examination. Reviewed echocardiogram with patient and family. Will add 12.5 mg spironolactone back in and reduce lasix to 40 mg once a day. She may take additional lasix in the afternoon for increase in weight. Repeat labs in 1 week. Continue to weigh daily. Discussed sodium and food choices as it pertains to this. Blood pressure is elevated in the office at 160/37 mmHg however, she was 128/76 mmHg on Wednesday with her PCP. Will have her monitor blood pressure at home. BP log given. Reviewed plan of care with patient. All questions answered at this time. PLAN AND RECOMMENDATIONS: ASSESSMENT/PLAN: 1. Chronic diastolic congestive heart failure (HCC) - ICD9: 428.32, 428.0, ICD10: I50.32 (primary diagnosis) - daily weights, call office if weight increases 3-4 lbs in a 1-4 day period -2 gm low sodium diet -activity as tolerated, rest breaks as needed -GDMT: lasix, metoprolol, losartan, spironolactone restart 11/24 12.5 mg -follow up in HF Clinic in April or sooner if needed -BMP in 1 week 2. Primary hypertension - ICD9: 401.9, ICD10: I10 -BP suboptimal during visit 160/37 mmHg -encourage DASH/low sodium diet -encourage exercise with rest breaks as needed -goal BP <130/80 mmHg -continue home BP monitoring 3-4 hours after morning meds -call office in 1 week to review 3. SSS (sick sinus syndrome) (HCC) - ICD9: 427.81, ICD10: I49.5 -s/p PPM 4. Longstanding persistent atrial fibrillation (HCC) - ICD9: 427.31, ICD10: I48.11 -CHADSVASc 5 (age, gender, HF, HTN)- s/p watchman -continue metoprolol for rate control -HR 60 bpm during office visit Follow up appointment with Dr. Burdick 01/16 PAST MEDICAL HISTORY Diagnosis Date Abnormal colonoscopy [...] 06/01/16 Mitral valve regurgitation Pacemaker 10/21/[address] TRELL VERNON [id number] pulse generator, his bundle lead, right atrial lead Peripheral arterial disease (HCC) Rheumatic fever Steatosis, liver 03/26/2014 fatty liver on US. 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 Lua PACEMAKER 10/2019 PART. HYSTERECTOMY W/WO RMVL OVARIES/TUBES 1974 h/o cervical cancer ovaries remain PAST SURGICAL HISTORY OF 1996 Aortic valve repair, Dr. Apodaca PAST SURGICAL HISTORY OF 2001 [address] Beltrán, [facility] PAST SURGICAL HISTORY OF 2015 clipping and coil for brain aneurysm Social History Tobacco Use Smoking status: Former Packs/day: 0.25 Years: 2.00 Additional pack years: 0.00 Total pack years: 0.50 Types: Cigarettes Quit date: 1967 Years since quittin.4 Smokeless tobacco: Never Vaping Use Vaping Use: Never used Substance Use Topics Alcohol use: Not Currently [...] by mouth once daily. 30 tablet 3 ferrous sulfate (IRON) 325 mg (65 mg iron) tablet Take 1 tablet by mouth once daily. 30 tablet 0 omeprazole (PRILOSEC) 40 mg capsule Take 1 capsule by mouth once daily. 90 capsule 1 metoprolol succinate ER (TOPROL XL) 50 mg 24 hr tablet Take 1 tablet by mouth two times a day. 180 tablet 3 losartan (COZAAR) 50 mg tablet Take 1 tablet by mouth once daily. 90 tablet 3 simvastatin (ZOCOR) 20 mg tablet Take 1 tablet by mouth daily at bedtime. 90 tablet 3 Blood Pressure Monitor (BLOOD [...] Take 1 capsule by mouth once daily. spironolactone (ALDACTONE) 25 mg tablet Take 0.5 tablets by mouth once daily. 30 tablet 5 furosemide (LASIX) 20 mg tablet Take 2 tablets by mouth once daily. TAKE AN EXTRA 20 MG in the afternoon if you note greater than 3 lbs weight gain in 24 hours 60 tablet 0 Current Facility-Administered Medications Medication Dose Route Frequency Provider Last Rate Last Admin perflutren lipid microspheres 1.3 mL in NaCl (PF) 0.9% 10 mL injection (DEFINITY) INTRAVENOUS DIRECTED PRCarla Hinojosa MD sodium chloride 0.9 % (flush) 10 mL (BD POSIFLUSH) 10 mL INTRAVENOUS DIRECTED PRCarla Hinojosa MD REVIEW OF SYSTEMS: GENERAL: Positive for:Weight gain (reviewed weights over past 12 months and weight has been 145-147 lbs) HEENT: Positive for:Glasses and Hearing Impairment NECK: Negative for: Swelling, Pain, Stiffness [...] Sweating, Frequent Urination, Frequent Thirst PHYSICAL EXAMINATION: 11/25/23 1000 11/25/23 1042 BP: (!) 163/41 (!) 160/37 Pulse: 60 SpO2: 98% Weight: 66.7 kg (147 lb) General: Normal exam, no distress, accompanied by family Skin: No clubbing, no cyanosis. Eyes: Extra ocular movements intact Neck: Neck veins are not distended Lungs: Chest clear to auscultation Heart: Rhythm: regular rate and rhythm, Rate: bradycardia, no murmur Abdomen: Normal Extremities: edema: Trace Peripheral Pulses: Normal CARDIOVASCULAR MEDICINE TESTING: Latest Reference Range & Units 11/19/23 10:01 Sodium 136 - 144 mmol/L 127 (L) Potassium 3.7 - 5.1 mmol/L 3.5 (L) Chloride 97 - 105 mmol/L 89 (L) CO2 22 - 30 mmol/L 26 BUN 7 - 21 mg/dL 63 (H) Creatinine 0.58 - 0.96 mg/dL 1.35 (H) Glucose 74 - 99 mg/dL 145 (H) Calcium 8.5 - 10.2 mg/dL 9.3 Phosphorus 2.7 - 4.8 mg/dL 3.6 Albumin 3.9 - 4.9 g/dL 4.2 Anion Gap 9 - 18 mmol/L 12 eGFR >=60 mL/min/1.73m 40 (L) (L): Data is abnormally low (H): Data is abnormally high Echo 10/28/23 The left ventricle is mildly dilated. There is mild concentric left ventricular hypertrophy. Left ventricular systolic function is mildly decreased. EF = 51 5% (2D 4-ch.) Indeterminate left ventricular diastolic [...] is 3 mmHg (although IVC not seen). I have personally reviewed the Laboratory Testing and Echocardiogram. COUNSELING: We discussed the following non-pharmacological measures during this visit: Smoking and alcohol abstinence/cessation, if applicable Dietary and medication compliance Monitoring daily weights and blood pressures Exercise regimen When to call our office Heart Failure Education Booklet: HF education reviewed today and materials given to patient. Reviewed HF Zones sheet and patient was given all contact information for HF Clinic. Discussed etiology of heart failure, importance of daily weights, fluid and fluid management, signs and symptoms of heart failure exacerbation, and activity guidelines. Reviewed 2g low sodium diet and the role sodium plays in the management of heart failure. Reviewed all current medications and the importance these medications play in management of heart failure. Discussed when to call clinic and when ED visit would be warranted. Patient states understanding of education. All questions were answered. Medications reconciled at end of visit: yes I spent 60 minutes in this visit, with more than 50% of the time devoted to patient counseling. SIGNATURE: Albin Gu APRN.CNP PATIENT NAME: Berta Sanches DATE: November 25, 2023 TIME: 999 documented in this encounter [facility] 11-23-2023 History of Present illness Narrative Lab from 11/19/[address] Mujica. Greatly improved with oral iron. Pt notified. No need for OV in Hem/Onc and to follow up with PCP. Pt verbalized understanding. Chula Morales RN documented in this encounter [facility] 11-22-2023 Instructions Deysi Nicholson APRN.JASPREET - 11/22/2023 9:53 AM EDT Continue the same medication. Repeat lab on Wednesday after you see Dr. Rodriguez. Moist heat/ice to the back. Massage to the area. Let us know if any problems/concerns. documented in this encounter [facility] 11-22-2023 History of Present illness Narrative This is a 78 year old female who presents today with: Patient presents with: Hospital Follow Up: [facility] follow up dc'd 11/12/23 dx: CHF HISTORY OF PRESENT ILLNESS: Berta Sanches is a 78 year old female. Patient presents with: Hospital Follow Up: [facility] follow up dc'd 11/12/23 dx: CHF Pt presents today for hospital follow-up. Discharged on 11/11 from [place] w/ dx of CHF. Refers that she went into the hospital with swelling and SOB. Diuresed in the hospital. Refers when she got home on her scale, her weight was 141. Refers that she has been steadily increasing. Today she is 150# here (11/07 - 161#). Over the weekend, she increased her lasix by 20 mg daily (total of 80 mg). Started potassium over the weekend - 10 meq Refers that she hasn't been eating much. Watching the salt very closely. Breathing has been fine. No chest pain. No palpitations. No swelling. Wearing compression stockings. No orthopnea. PAST MEDICAL HISTORY: PAST MEDICAL HISTORY Diagnosis [...] with nuclar stress CHF (congestive heart failure) ([facility]) Cholesteatoma of right ear surgical removal Chronic mastoiditis of left side Chronic renal failure, stage 3b (HCC) 04/15/2022 Diabetes (HCC) Diabetes (HCC) GERD (gastroesophageal reflux disease) H/O: GI bleed High blood pressure Hypercholesterolemia Mastoiditis of right side s/p mastoidectomy, complete opacitificationright tympanic cavity and mastoid cells on CT 06/01/16 Mitral valve regurgitation Pacemaker 10/21/[address] TRELL VERNON [id number] pulse generator, his bundle lead, right atrial lead Peripheral arterial disease (HCC) Rheumatic fever Steatosis, liver 03/26/2014 fatty liver on US. 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 Lua PACEMAKER 10/2019 PART. HYSTERECTOMY W/WO RMVL OVARIES/TUBES 1974 h/o cervical cancer ovaries remain PAST SURGICAL HISTORY OF 1996 Aortic valve repair, Dr. Apodaca PAST SURGICAL HISTORY OF 2001 [address] and [address] Beltrán, [facility] PAST SURGICAL HISTORY OF 2016 clipping and coil for brain aneurysm ALLERGIES Protamine and Propofol MEDICATIONS Current Outpatient Medications Medication Sig furosemide (LASIX) 20 mg tablet Take 3 tablets by mouth once daily. TAKE AN EXTRA 20 MG in the afternoon if you note greater than 3 lbs weight gain in 24 hours Patient should start on November 13, 2023. ferrous sulfate (IRON) 325 mg (65 mg [...] Take 1 capsule by mouth once daily. potassium chloride (K-TAB) 10 mEq tablet Take 1 tablet by mouth once daily. spironolactone (ALDACTONE) 25 mg tablet Take 1 tablet by mouth once daily. HOLD aldactone omeprazole (PRILOSEC) 40 mg capsule Take 1 capsule by mouth once daily. simvastatin (ZOCOR) 20 mg tablet Take 1 tablet by mouth daily at bedtime. clopidogrel (PLAVIX) 75 mg tablet Take 1 tablet by mouth once daily. Only for 6 months. After that stay on ASA 81 mg daily, (Patient not taking: Reported on 10/14/2023) Current Facility-Administered Medications Medication Dose Route Frequency perflutren lipid microspheres 1.3 mL in NaCl (PF) 0.9% 10 mL injection (DEFINITY) INTRAVENOUS DIRECTED PRN sodium chloride 0.9 % (flush) 10 mL (BD POSIFLUSH) 10 mL INTRAVENOUS DIRECTED PRN FAMILY HISTORY Problem Relation Age of Onset other (Heart Problems) Mother other (myocardial infarction) Mother other (cardiovascular disease) Mother other (Heart Attack) Father other (cardiovascular disease) Father Diabetes Maternal Grandmother Social History Tobacco Use Smoking status: Former Packs/day: 0.25 Years: 2.00 Additional pack years: 0.00 Total pack years: 0.50 Types: Cigarettes Quit date: 1967 Years since quittin.4 Smokeless tobacco: Never Vaping Use Vaping Use: Never used Substance Use Topics Alcohol use: Not Currently Alcohol/week: 1.0 standard drink of alcohol Types: 1 Glasses of Wine (5oz) per week Comment: red wine 2-3 times a week- occasional Drug use: No EXAM: BP 128/76 Pulse 67 Resp 16 Wt 68 kg (150 lb) SpO2 98% BMI 27.44 kg/m PHYSICAL EXAM: General Appearance: Well appearing, alert, in no acute distress, well-hydrated, well nourished.. Skin: Skin color, texture, turgor normal, no suspicious rashes or lesions. Head: Normocephalic, no masses, lesions, tenderness or abnormalities. Eyes: Anicteric sclera. Extraocular movements are intact. . Lungs: Lungs clear to auscultation. No wheezing, rhonchi, rales.. Heart: RRR without murmur, gallop, or rubs. No ectopy. Extremities: No deformities, edema, skin discoloration, clubbing or cyanosis. Good capillary refill. . Neurologic: Gait normal. ASSESSMENT/PLAN: 1. Acute systolic CHF (congestive heart failure) (HCC) - ICD9: 428.21, 428.0, ICD10: I50.21 (primary diagnosis) - stable. Continue current lasix. Continue daily weights. Limit sodium. Following with heart failure clinic. 2. Hyponatremia - ICD9: 276.1, ICD10: E87.1 - RENAL FUNCTION PANEL 3. Hypokalemia - ICD9: 276.8, ICD10: E87.6 - RENAL FUNCTION PANEL Discussed treatment plan and patient voices understanding. Patient's questions answered appropriately. Medications and potential side effects were discussed and patient voices understanding. Return to the office as scheduled or as needed for worsening/no improvement. Deysi Nicholson APRN.JASPREET documented in this encounter [facility] 11-19-2023 Telephone encounter Note Patient called office for instructions on diuretics as her weight is up 5 lbs. She states she was instructed to call the office with questions. This VOLUNTEER SERVICES ASSISTANT has not seen this patient in clinic but is scheduled to see her in the following week. 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 She has been taking additional 20 mg lasix in the afternoon for 2 days with no improvement in weight. She suggested taking an additional 40 mg in the afternoon. Discussed this with patient. She may do this for 2 days only. Will send for potassium as she was low on 5/10 labs and did not go home on potassium. She is scheduled to have labs drawn today. Will move patient up on schedule and see next week. She is to call the office next Wednesday to report weight. Reviewed plan of care. Patient agrees and understands. Albin Gu APRN.JASPREET [facility] Work Phone: 11-19-2023 Miscellaneous Notes Patient called office for instructions on diuretics as her weight is up 5 lbs. She states she was instructed to call the office with questions. This VOLUNTEER SERVICES ASSISTANT has not seen this patient in clinic but is scheduled to see her in the following week. 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 She has been taking additional 20 mg lasix in the afternoon for 2 days with no improvement in weight. She suggested taking an additional 40 mg in the afternoon. Discussed this with patient. She may do this for 2 days only. Will send for potassium as she was low on 11/11 labs and did not go home on potassium. She is scheduled to have labs drawn today. Will move patient up on schedule and see next week. She is to call the office next Wednesday to report weight. Reviewed plan of care. Patient agrees and understands. Albin Gu APRN.JASPREET documented in this encounter [facility] 11-17-2023 Telephone encounter Note HF Follow-up Phone Call: Red Flags: Patient noticed change in their breathing since discharge: No Patient noticed increased swelling in their feet or ankles: No Patient gained more than 4 pounds since discharge: No Patient noticed change in incision since discharge (surgical patients only): N/A Patient having chest discomfort since discharge: No If yes, what type of pain and where: N/A Patient went to the ED or hospital after their discharge: No Medications: Did patient refill their prescriptions: Yes If no, why: N/A Patient taking medications as prescribed: Yes If no, why: N/A Patient had questions about their medications: No Care Coordination: Patient had an appointment within 7 days: Yes Patient issues with appointment: N/A Comments: Spoke with pt. She states she is doing good except her energy level is low. Her breathing is fine, she is weighing herself and has not gained. She is watching her sodium intake. She received and is taking her medications. She has appts for blood work and the CHF clinic set up. No c/o, no problems, no questions @ this time. Sodium 132 11/12/2023 Potassium 3.7 11/12/2023 BUN 45 11/12/2023 Creatinine 1.65 11/12/2023 No results found for this basename: BNP [facility] 11-17-2023 Miscellaneous Notes HF Follow-up Phone Call: Red Flags: Patient noticed change in their breathing since discharge: No Patient noticed increased swelling in their feet or ankles: No Patient gained more than 4 pounds since discharge: No Patient noticed change in incision since discharge (surgical patients only): N/A Patient having chest discomfort since discharge: No If yes, what type of pain and where: N/A Patient went to the ED or hospital after their discharge: No Medications: Did patient refill their prescriptions: Yes If no, why: N/A Patient taking medications as prescribed: Yes If no, why: N/A Patient had questions about their medications: No Care Coordination: Patient had an appointment within 7 days: Yes Patient issues with appointment: N/A Comments: Spoke with pt. She states she is doing good except her energy level is low. Her breathing is fine, she is weighing herself and has not gained. She is watching her sodium intake. She received and is taking her medications. She has appts for blood work and the CHF clinic set up. No c/o, no problems, no questions @ this time. Sodium 132 11/12/2023 Potassium 3.7 11/12/2023 BUN 45 11/12/2023 Creatinine 1.65 11/12/2023 No results found for this basename: BNP documented in this encounter [facility] 11-16-2023 Telephone encounter Note Called patient and scheduled as Directed Mona Noonan [facility] 11-16-2023 Miscellaneous Notes Called patient and scheduled as Directed Mona Noonan Hemoglobin okay. Not urgent. Next new appointment time with either me or Dr. Rodriguez. Dx: 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 (ICD-10-CM)]; Iron malabsorption [K90.9 (ICD-10-CM)] Hospitalist is recommending outpatient iron transfusion. Please schedule. Telephone on 10/31/23 CONSULT TO HEMATOLOGY Edmund Alex PA-C documented in this encounter [facility] 11-16-2023 History of Present illness Narrative ACM CECY RN Patient identified by name and date of . Reason for review or outreach: Chart Review Cecy Priority Emergency Department Utilization ED DIAGNOSES/REASON(S) FOR ED USE: OTHER FINDINGS/SUMMARY:E.D. visit on 11-09-23 transitioned to [facility] Admit Patient Attributed To: QAE Payer: Aecarmelina [place] Action Taken: No action needed Contact made with patient: No, Chart review only. Signature: Geri Santoyo RN documented in this encounter [facility] 11-15-2023 Telephone encounter Note Transitional Care Management (TCM) [facility] Monitoring Program Provider Action / FYI: na SUMMARY: Outreach type: INITIAL OUTREACH Discharge Network Status: In-Network Discharge Source of Patient: [facility] TCM Discharge Report Patient discharged from [place] on 11.09.23. Admitted for Acute on chronic left systolic heart failure . Contact made with patient: Yes, for Initial Outreach Hi my name is Nara Malone RN and I am calling from the [facility] on behalf of your Primary Care Provider, Doreen Le PA-C. I understand you were recently in the hospital so I am calling to check in with you to ensure you are feeling well now that you are home. May I ask you a few questions related to your hospital stay and well-being? Yes Contact with patient post discharge, spoke to patient. Patient identified by name and . Symptoms: Do you feel your health is BETTER, WORSE, or the SAME since leaving the hospital? Same Action Taken: Patient indicated symptoms are better or same, no action required. Hospital Follow-Up Appointment: I would like to help you schedule a hospital follow-up visit with your Primary Care Provider (PCP). This is a great way for you to connect with your provider to ensure you have safely transitioned home. If you are agreeable, I will provide you with the Appointment Center phone number to speak with a circulation analyst who can assist you with that appointment. This will give you an opportunity to ask any questions or address any concerns you may have with your Primary Care Provider. [Inform the patient that if they have any questions or concerns prior to that appointment, to call their PCP's office right away.] Action Taken: Patient desires an appointment - Provide Appointment Center phone number to patient . Nara Malone RN November 15, 2023 10:35 AM [facility] 11-15-2023 Miscellaneous Notes Transitional Care Management (TCM) [facility] Monitoring Program Provider Action / FYI: na SUMMARY: Outreach type: INITIAL OUTREACH Discharge Network Status: In-Network Discharge Source of Patient: [facility] TCM Discharge Report Patient discharged from [place] on 11.09.23. Admitted for Acute on chronic left systolic heart failure . Contact made with patient: Yes, for Initial Outreach Hi my name is Nara Malone RN and I am calling from the [facility] on behalf of your Primary Care Provider, Doreen Le PA-C. I understand you were recently in the hospital so I am calling to check in with you to ensure you are feeling well now that you are home. May I ask you a few questions related to your hospital stay and well-being? Yes Contact with patient post discharge, spoke to patient. Patient identified by name and . Symptoms: Do you feel your health is BETTER, WORSE, or the SAME since leaving the hospital? Same Action Taken: Patient indicated symptoms are better or same, no action required. Hospital Follow-Up Appointment: I would like to help you schedule a hospital follow-up visit with your Primary Care Provider (PCP). This is a great way for you to connect with your provider to ensure you have safely transitioned home. If you are agreeable, I will provide you with the Appointment Center phone number to speak with a circulation analyst who can assist you with that appointment. This will give you an opportunity to ask any questions or address any concerns you may have with your Primary Care Provider. [Inform the patient that if they have any questions or concerns prior to that appointment, to call their PCP's office right away.] Action Taken: Patient desires an appointment - Provide Appointment Center phone number to patient . Nara Malone RN November 15, 2023 10:35 AM documented in this encounter [facility] 11-15-2023 Telephone encounter Note Hemoglobin okay. Not urgent. Next new appointment time with either me or Dr. Rodriguez. 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 Please schedule. Telephone on 10/31/23 CONSULT TO HEMATOLOGY ThanksEdmund PA-C [facility] 11-12-2023 Telephone encounter Note Medical Care at home referral was received for Heart Failure services. Unfortunately the referral is declined at this time due to geographic location. Thank you for the referral. KAITLYNN Tuttle [facility] 11-12-2023 Miscellaneous Notes Medical Care at home referral was received for Heart Failure services. Unfortunately the referral is declined at this time due to geographic location. Thank you for the referral. KAITLYNN Tuttle Transitional Care Program - Intake Template - for interface Date Referral Received: 11/12/2023 Referral Source: [facility] Program: HF Consult UD Consult scheduled with: NA Date of : 1945 Age: [age] year old PCP: Doreen Le PA-C Visit address from [facility]: [address] [place] [address] Name of Physician who gave the order: Dr. Rita Rey Other services ordered: None Primary Insurance Company: Payor: [employer] MEDICARE / Plan: [employer] MEDICARE PPO / Product Type: PPO / Primary Insurance ID Number: [id number] documented in this encounter [facility] 11-12-2023 Telephone encounter Note Transitional Care Program - Intake Template - for interface Date Referral Received: 11/12/2023 Referral Source: [facility] Program: HF Consult UD Consult scheduled with: NA Date of : 1945 Age: [age] year old PCP: Doreen Le PA-C Visit address from [facility]: [address] [place] [address] Name of Physician who gave the order: Dr. Rita Rey Other services ordered: None Primary Insurance Company: Payor: [employer] MEDICARE / Plan: [employer] MEDICARE PPO / Product Type: PPO / Primary Insurance ID Number: [id number] [facility] 11-12-2023 Evaluation note Diagnosis Stage 3 chronic kidney disease, unspecified whether stage 3a or 3b CKD (HCC)- Primary documented in this encounter [facility]05-06-2024 History of Present illness Narrative* BoykinBere [email or web address].SIGN BOARD ERECTOR - 11/08/2023 4:30 PM EDT Images from the original note were not included. [facility] [place] Martha Meléndez Department of Cardiovascular Medicine SECTION OF CLINICAL CARDIOLOGY OUTPATIENT VISIT DATE November 08, 2023 OUTPATIENT VISIT TYPE ESTABLISHED PRIMARY CARE PHYSICIAN: Doreen Le PA-C [address] [place] [address] CHIEF COMPLAINT: Follow Up HISTORY OF PRESENT ILLNESS: Ms. Sanches is a 78 year old female, patient of Dr. Washington and Dr. Burdick who presents today for a cardiovascular medicine follow-up visit regarding history of SND s/p dual chamber pacemaker implantation in October 2020. Ms. Sanches was last seen by Dr. Washington in May of 2021. Since then, she has undergone watchman implantation. Today, she reports that she is not doing well. She has noted increased shortness of breath, first only with exertion but now at rest, with bilateral lower extremity edema, abdominal bloating, early satiety, orthopnea, PND and weight gain of ~15-20 pounds. She increased furosemide from 40 mg daily to 60 mg daily and increased aldactone as well. She was then evaluated by her PCP who had obtained labs and due to MONIQUE advised her that she was dehydrated and asked her to lower furosemide and stop aldactone. PMH: Sinus node dysfunction sp/ dual chamber MDT pacemaker (10/2020), symptomatic, persistent atrialfibrillation s/p PVI 2018, GIB without identifiable cause s/p well-seated with 2mm leak noted #27 watchman FLX-01/2022, h/o AVR and thoracic aorta replacement (1998), hypertension, dyslipidemia, DM2, h/o brain aneurysm s/p coiling (2015) PAST MEDICAL HISTORY Diagnosis Date Abnormal colonoscopy [...] 06/01/16 Mitral valve regurgitation Pacemaker 10/21/[address] TRELL VERNON [id number] pulse generator, his bundle lead, right atrial lead Peripheral arterial disease (HCC) Rheumatic fever Steatosis, liver 03/26/2014 fatty liver on US. 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 Lua PACEMAKER 10/2019 PART. HYSTERECTOMY W/WO RMVL OVARIES/TUBES 1973 h/o cervical cancer ovaries remain PAST SURGICAL HISTORY OF 1996 Aortic valve repair, Dr. Apodaca PAST SURGICAL HISTORY OF 2001 [address] Beltrán, [facility] PAST SURGICAL HISTORY OF 2015 clipping and coil for brain aneurysm SOCIAL HISTORY Social History Tobacco Use Smoking status: Former Packs/day: 0.25 Years: 2.00 Additional pack years: 0.00 Total pack years: 0.50 Types: Cigarettes Quit date: 1968 Years since quittin.3 Smokeless tobacco: Never Vaping Use Vaping Use: Never used Substance Use Topics Alcohol use: Not Currently [...] Comments Hypotension MEDICATIONS: spironolactone (ALDACTONE) 25 mg tablet^Take 1 tablet by mouth once daily. HOLD aldactone^Disp: 30 tablet^Rfl: 5 omeprazole (PRILOSEC) 40 mg capsule^Take 1 capsule by mouth once daily.^Disp: 90 capsule^Rfl: 1 metoprolol succinate ER (TOPROL XL) 50 mg 24 hr tablet^Take 1 tablet by mouth two times a day.^Disp: 180 tablet^Rfl: 3 losartan (COZAAR) 50 mg tablet^Take 1 tablet by mouth once daily.^Disp: 90 tablet^Rfl: 3 simvastatin (ZOCOR) 20 mg tablet^Take 1 tablet by mouth daily at bedtime.^Disp: 90 tablet^Rfl: 3 Blood Pressure Monitor (BLOOD PRESSURE KIT)^1 Each once daily.^Disp: 1 Each^Rfl: 0 clopidogrel (PLAVIX) 75 mg tablet^Take 1 tablet by mouth once daily. Only for 6 months. After that stay on ASA 81 mg daily,^Disp: 90 tablet^Rfl: 1 (Patient not taking: Reported on 10/14/2023) aspirin 81 mg chewable tablet^Take 1 tablet by mouth once daily.^Disp: 30 tablet^Rfl: 11 acetaminophen (TYLENOL) 500 mg tablet^Take 1-2 tablets by mouth every 6 hours as needed.^Disp: ^Rfl: blood sugar diagnostic (BLOOD GLUCOSE TEST) test strip^Test blood sugar(s) 2 times daily. Dx: Type 2 DM - Controlled E11.9 Insulin: No^Disp: 50 Strip^Rfl: 11 UBIDECARENONE (COQ-10 ORAL)^Take 1 capsule by mouth once daily.^Disp: ^Rfl: REVIEW OF SYSTEMS: ROS is otherwise negative apart from what has been documented in HPI PHYSICAL EXAMINATION: BP 156/70 Pulse 94 Wt 73.2 kg (161 lb 4.8 oz) SpO2 95% BMI 29.98 kg/m General: Short of breath at rest. Skin: No clubbing, no cyanosis. Neck: Elevated JVP Lungs: Crackles bilaterally Heart: Irreguarly irregular with systolic murmur noted LUSB and very high- pitched systolic murmur noted mid-sternal border. Abdomen: Firm, distended, non-tender Extremities: 2+ bilateral lower extremity edema Grade 2/4 distal pulses bilaterally. Neuro: Oriented to person, place and time, alert, cooperative, gait coordinated. CARDIOVASCULAR MEDICINE TESTING: Labs: Latest Ref Rng 04/07/2023 11/01/2023 WBC 3.70 - 11.00 k/uL 7.74 7.39 RBC 3.90 - 5.20 m/uL 4.29 3.97 Hemoglobin 11.5 - 15.5 g/dL 13.4 11.3 (L) Hematocrit 36.0 - 46.0 % 39.9 36.0 MCV 80.0 - 100.0 fL 93.0 90.7 MCH 26.0 - 34.0 pg 31.2 28.5 MCHC 30.5 - 36.0 g/dL 33.6 31.4 RDW-CV 11.5 - 15.0 % 13.7 16.7 (H) Platelet Count 150 - 400 k/uL 186 173 Latest Ref Rng 04/07/2023 10/16/2023 11/01/2023 Glucose 74 - 99 mg/dL 147 (H) 143 (H) 145 (H) BUN 7 - 21 mg/dL 26 (H) 24 (H) 33 (H) Creatinine 0.58 - 0.96 mg/dL 1.12 (H) 1.31 (H) 1.72 (H) Sodium 136 - 144 mmol/L 136 139 136 Potassium 3.7 - 5.1 mmol/L 4.3 5.0 5.2 (H) Chloride 97 - 105 mmol/L 101 103 99 CO2 22 - 30 mmol/L 24 24 22 Anion Gap 9 - 18 mmol/L 11 12 15 eGFR >=60 mL/min/1.73m 51 (L) 42 (L) 30 (L) ECG 11/08/2023: Atrial fibrillation VR 96 ECHO 10/28/2023: - Exam indication: Shortness of Breath - The left ventricle is mildly dilated. There is mild concentric left ventricular hypertrophy. Leftventricular systolic function is mildly decreased. EF = 51 5% (2D 4-ch.) Indeterminate left ventricular diastolic [...] tricuspid insufficiency. RVSP estimate has increased also. Device Check 10/11/2023: PRESENTING EGM: AT/VS BATTERY STATUS: Estimated time remaining to YUE is 11.1 years COUNTERS SINCE: 06/04/2023 ATRIAL ARRHYTHMIAS: There have been 4672 AT/AF detections with current episode ongoing since 06/14/23. Total time 95.4 % Anticoagulants listed: Plavix and aspirin. Dr. Washington updated about continued spike in AF. VENTRICULAR ARRHYTHMIAS: There have been 22 Ventricular detections. Available EGMs show AF with RVR LEAD MEASUREMENTS: Sensing and capture are appropriate. Review of the lead impedance trends are normal. OTHER DIAGNOSTICS: RA pacing 7.6%. LBB pacing 18.9%. FOLLOW UP: Continue 3 month remote transmissions and yearly in-clinic interrogations. Ying Echavarria RN I have personally reviewed the Electrocardiogram and Laboratory Testing. IMPRESSION/PLAN: 1. Persistent atrial fibrillation with SND s/p dual chamber MDT pacemaker (10/2020) and s/p well-seated with 2mm leak noted #27 watchman FLX-01/2022, currently on ASA alone, due for 1 yr ABDIEL (due 01/12/2023) - ECG today demonstrates atrial fibrillation VR 96 - Reviewed most recent available device check, appears that she has persistently been in AF since June, particularly with elevated rates. - Suspect elevated rates in today's setting is secondary to acute HFpEF - May be candidate for DCCV at [facility] once euvolemic 3. 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 She was fluid overloaded when these images were obtained. - MONIQUE noted on most recent labs with elevated BNP, likely related to fluid overload, suspect she will improve with IV diuresis. - Unclear if AF provoked fluid overload and worsened valvular function. - Advised patient to be admitted to hospital for IV diuresis and further management. She was agreeable. Given hemodynamic stability, he spouse drove her to [facility] ER. I called report to Dr. Tuttle in theER. CONTACT INFORMATION: Bere Boykin APRN.[facility] Cardiology [id number] [facility] [address] Dept: [phone] I have reviewed the patient's medications and allergies, past medical, surgical, social and family history, updating these as appropriate. See Histories section of the [facility] for a display of this information. [facility] Instructions* Patient Instructions* Doreen Le PA-C - 11/04/2023 8:46 AM EDT See sheet on piriformis stretching [facility] History of Present illness Narrative* Doreen Le PA-C - 11/04/2023 8:00 AM EDT 78 year old female with c/o follow up SOB, leg swelling Anxious about echo and implications. Contrary to prior comments, she states swelling has not increase and breathing has improved somewhat. Swelling in associated with knee and distal thigh but not lower legs. Patient has continued to take a total of 60 mg of Lasix daily plus the Aldactone daily, has not been adjusting related to given prescription which was to add 20 mg of Lasix to the daily 40mg only if increased shortness of breath, increased swelling or sustained increased weight gain more than 3 pounds per day or 5 pounds per week. Acknowledges stiffness and discomfort of bilateral knees. Expedited cardiology appointment is pending next week. 10/28/2023 echo: indication SOB, leg swelling LV: Mildly dilated, mild concentric LVH, LV SF mildly decreased, EF 51%, indeterminate LVDD, mild hypokinesis entire: anterior wall, lateral wall, septum, apex, inferior wall. RV dilated RV SF mildly decreased, RVSP 75 mmHg consistent with moderately severe pulmonary hypertension, RAP 3 mmHg LA severely dilated RA dilated, IVC dilated 2.4 cm [employer]ife Homograft prosthetic aortic valve (size #28): (2+) AVR, peak/mean gradient 25/12mmHg, DVI 0.34. Prior pk/mn gradients were 29/14 mmHg. - Exam was compared with the prior echocardiographic exam performed on 03/05/2023. There is now evidence of moderately severe tricuspid insufficiency. RVSP estimate has increased also. Latest Ref Rng 10/05/2022 04/07/2023 10/16/2023 11/01/2023 WBC 3.70 - 11.00 k/uL 8.46 7.74 7.39 RBC 3.90 - 5.20 m/uL 4.63 4.29 3.97 Hemoglobin 11.5 - 15.5 g/dL 14.0 13.4 11.3 (L) Hematocrit 36.0 - 46.0 % 42.4 39.9 36.0 MCV 80.0 - 100.0 fL 91.6 93.0 90.7 MCH 26.0 - 34.0 pg 30.2 31.2 28.5 MCHC 30.5 - 36.0 g/dL 33.0 33.6 31.4 RDW-CV 11.5 - 15.0 % 14.7 13.7 16.7 (H) Platelet Count 150 - 400 k/uL 169 186 173 MPV 9.0 - 12.7 fL 10.1 10.0 11.1 Neut% % 50.6 50.5 Abs Neut (ANC) 1.45 - 7.50 k/uL 4.27 3.92 Lymph% % 33.3 35.3 Abs Lymph 1.00 - 4.00 k/uL 2.82 2.73 Po[place]ett% % 13.0 10.2 Abs [place] <0.87 k/uL 1.10 (H) 0.79 Eosin% % 2.0 2.5 Abs Eosin <0.46 k/uL 0.17 0.19 Baso% % 0.9 1.2 Abs Baso <0.11 k/uL 0.08 0.09 Immature Gran % % 0.2 0.3 IMMATURE GRANS (ABS) <0.10 k/uL <0.03 <0.03 NRBC /100 WBC 0.0 0.0 Absolute nRBC <0.01 k/uL <0.01 <0.01 <0.01 DTYPE Auto Auto Protein, Total 6.3 - 8.0 g/dL 7.1 7.1 Albumin 3.9 - 4.9 g/dL 4.1 4.1 Calcium 8.5 - 10.2 mg/dL 9.5 9.3 9.7 9.3 Bilirubin, Total 0.2 - 1.3 mg/dL 0.7 0.5 Alkaline Phosphatase 34 - 123 U/L 106 80 AST 13 - 35 U/L 17 21 ALT 7 - 38 U/L 9 14 Glucose 74 - 99 mg/dL 149 (H) 147 (H) 143 (H) 145 (H) BUN 7 - 21 mg/dL 24 (H) 26 (H) 24 (H) 33 (H) Creatinine 0.58 - 0.96 mg/dL 1.09 (H) 1.12 (H) 1.31 (H) 1.72 (H) Sodium 136 - 144 mmol/L 138 136 139 136 Potassium 3.7 - 5.1 mmol/L 4.6 4.3 5.0 5.2 (H) Chloride 97 - 105 mmol/L 99 101 103 99 CO2 22 - 30 mmol/L 28 24 24 22 Anion Gap 9 - 18 mmol/L 11 11 12 15 eGFR >=60 mL/min/1.73m 52 (L) 51 (L) 42 (L) 30 (L) NT Pro BNP <450 pg/mL 5,698 (H) 4,932 (H) Also complaining of acute right hip pain over the last few days. Patient has been out in the yard picking up sticks and doing yard work. Hurts at night, loosens up during the day. Taking Tylenol Using ice and moist heat. HISTORIES FAMILY HISTORY Problem Relation Age of Onset other (Heart Problems) Mother other (myocardial infarction) Mother other (cardiovascular disease) Mother other (Heart Attack) Father other (cardiovascular disease) Father Diabetes Maternal Grandmother PAST MEDICAL HISTORY Diagnosis Date Abnormal colonoscopy [...] 06/01/16 Mitral valve regurgitation Pacemaker 10/21/[address] TRELL VERNON [id number] pulse generator, his bundle lead, right atrial lead Peripheral arterial disease (HCC) Rheumatic fever Steatosis, liver 03/26/2014 fatty liver on US. 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 Lua PACEMAKER 10/2019 PART. HYSTERECTOMY W/WO RMVL OVARIES/TUBES 1974 h/o cervical cancer ovaries remain PAST SURGICAL HISTORY OF 1996 Aortic valve repair, Dr. Apodaca PAST SURGICAL HISTORY OF 2001 [address] Beltrán, [facility] PAST SURGICAL HISTORY OF 2016 clipping and coil for brain aneurysm Social History Tobacco Use Smoking status: Former Packs/day: 0.25 Years: 2.00 Additional pack years: 0.00 Total pack years: 0.50 Types: Cigarettes Quit date: 1967 Years since quittin.3 Smokeless tobacco: Never Vaping Use Vaping Use: Never used Substance Use Topics Alcohol use: Not Currently Alcohol/week: 1.0 standard drink of alcohol Types: 1 Glasses of Wine (5oz) per week Comment: red wine 2-3 times a week- occasional Drug use: No ACTIVE PROBLEM LIST History of Prosthetic Aortic Valve Replacement Aortic Prosthetic Valve Regurgitation Htn (Hypertension) Hyperlipidemia With Target Ldl Less Than 70 Gerd (Gastroesophageal Reflux Disease) Chronic Anticoagulation Fatigue Sob (Shortness of Breath) H/O Rheumatic Heart Disease Basal Cell Carcinoma Left Shoulder Pain Bilateral Carotid Artery Stenosis Osteopenia of Left Lower Leg Mastoiditis of Right Side Chronic Mastoiditis of Left Side Personal History of Colonic Polyps History of Ischemic Colitis Adenomatous Polyp of Descending Colon Skin Cancer Pad (Peripheral Artery Disease) ([facility]) Pedro Aneurysm of Anterior Communicating Artery Stage 3 Chronic Renal Impairment Associated With Type 2 Diabetes Mellitus (Hcc) History of Pulmonary Embolism Ascending Aorta Dilatation (Hcc) Chronic Bilateral Pleural Effusions Colovesical Fistula Right Renal Mass Diverticulitis Large Intestine W/O Perforation Or Abscess W/O Bleeding Renal Cell Carcinoma, Right (Hcc) Iron Deficiency Anemia Hypomagnesemia Gastrointestinal Hemorrhage Associated With Acute Gastritis Esophageal Stenosis Dilated Cardiomyopathy (Hcc) Chronic Combined Systolic and Diastolic Chf (Congestive Heart Failure) (Hcc) Sss (Sick Sinus Syndrome) ([facility]) Duodenal Ulcer Type 2 Diabetes Mellitus With Diabetic Peripheral Angiopathy Without Gangrene, Without Long-Term Current Use of Insulin (Hcc) Longstanding Persistent Atrial Fibrillation (Hcc) S/P Placement of Cardiac Pacemaker Ckd (Chronic Kidney Disease) Platelet Inhibition Due to Plavix Diverticulosis Lung Nodule, Solitary Red Blood Cell Antibody Positive Iron Deficiency Anemia Secondary to Inadequate Dietary Iron Intake Iron Malabsorption Chronic Renal Failure, Stage 3b (Hcc) Spondylolisthesis At L4-L5 Level Occlusion of Superior Mesenteric Artery (Hcc) Current Outpatient Medications Medication Sig Dispense Refill omeprazole (PRILOSEC) 40 mg capsule Take 1 capsule by mouth once daily. 90 capsule 1 spironolactone (ALDACTONE) 25 mg tablet Take 1 tablet by mouth once daily. 30 tablet 5 metoprolol succinate ER (TOPROL XL) 50 mg 24 hr tablet Take 1 tablet by mouth two times a day. 180 tablet 3 losartan (COZAAR) 50 mg tablet Take 1 tablet by mouth once daily. 90 tablet 3 simvastatin (ZOCOR) 20 mg tablet Take 1 tablet by mouth daily at bedtime. 90 tablet 3 Blood Pressure Monitor (BLOOD PRESSURE KIT) 1 Each once daily. 1 Each 0 clopidogrel (PLAVIX) 75 mg tablet Take 1 tablet by mouth once daily. Only for 6 months. After that stay on ASA 81 mg daily, (Patient not taking: Reported on 10/14/2023) 90 tablet 1 aspirin 81 mg chewable tablet Take 1 [...] Take 1 capsule by mouth once daily. Current Facility-Administered Medications Medication Dose Route Frequency Provider Last Rate Last Admin perflutren lipid microspheres 1.3 mL in NaCl (PF) 0.9% 10 mL injection (DEFINITY) INTRAVENOUS DIRECTED PRCarla Hinojosa MD sodium chloride 0.9 % (flush) 10 mL (BD POSIFLUSH) 10 mL INTRAVENOUS DIRECTED PRLisset Hinojosa MD BP Controlled (<130/80) Never done RSV Vaccine(1 - 1-dose 60+ series) Never done Diabetic Foot Exam due on 04/06/2023 Advance Directive Discussion due on 07/05/2023 Behavioral Health Screening Never done HbA1C due on 10/07/2023 EXAM: BP 130/70 Pulse 88 Resp 20 Wt 72.6 kg (160 lb) SpO2 97% BMI 29.74 kg/m Pleasant thin and frail older woman in no acute distress. Alert and oriented all spheres. Normal affect and cognition. Speech normal. No deficits to learning or comprehension. Skin warm, dry, pink to lips and nailbeds. Normal turgor. Respirations regular and unlabored. Speaking in full sentences. HEENT: NCAT. No scleral icterus or conjunctival injection. TM's clear. Nose and oropharynx free from injection or lesion. Oral membranes moist and pink. No cervical lymph nodes. Thyroid non-tender, no masses, or enlargement. Carotids pulses 2+/4+ without bruits. No JVD with HOB at 30 degrees. Chest is clear to auscultation and percussion. Cardiac exam regular rate and rhythm with typical murmur unchanged.. No retractions, no pursed lip breathing. Complains of pain with right hip with flexion to approximately 70 degrees, and with external rotation. No tenderness over greater trochanter bursa. Left range of motion is near normal. Bilateral knees with arthritic changes and significantly reduced ROM Has swelling around both right and left knees which does create a sense of firmness up into the distal anterior thigh, no palpable cords or tenderness along the medial thigh or in the calves. Calves do feel somewhat tight but no overt edema, nonpitting Dorsal pedal pulses are 1-2 out of 4 plus, nails are pink with prompt capillary refill, next remedies distally are warm. OMT: Myofascial release to tender trigger points in the right piriformis muscle group with mild muscle energy techniques with resolution of discomfort. ASSESSMENT/PLAN: 1. Acute systolic CHF (congestive heart failure) (HCC) - ICD9: 428.21, 428.0, ICD10: I50.21 (primary diagnosis) Seeing cardiology next week Reviewed echo with left and right heart issues, will need to review with cardiology Over diuresed which is placing additional strain wit dehydration Hold aldactone. Take lasix 40mg daily and only add additional 20mg with parameter greater than 3 pound weight gain in 1 day or 5 pounds in 1 week accompanied by either increased shortness of breath or increased leg edema. Explained leg edema dressed to distal components, her current swelling in the mid knee and distal thigh is very likely from arthritis. asked if they should go to the emergency department, identified that she is in no acute distress, does appear better than she did when I saw her 2 weeks ago and should go to the emergency room if she is decompensating indicated by labored breathing, retractions, increased swelling, chest pain or any other sign that she is in acute physical distress. 2. Rheumatic tricuspid valve regurgitation - ICD9: 397.0, ICD10: I07.1 3. Diuresis excessive - ICD9: 788.42, ICD10: R35.89 4. 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) - ICD9: 428.42, 428.0, ICD10: I50.42 5. Dilated cardiomyopathy (HCC) - ICD9: 425.4, ICD10: I42.0 6. Longstanding persistent atrial fibrillation (HCC) - ICD9: 427.31, ICD10: I48.11 7. SSS (sick sinus syndrome) (HCC) - ICD9: 427.81, ICD10: I49.5 8. S/P placement of cardiac pacemaker - ICD9: V45.01, ICD10: Z95.0 As above 9. Acute hip pain, right - ICD9: 719.45, ICD10: M25.551 10. Piriformis syndrome, right - ICD9: 355.0, ICD10: G57.01 Symptoms resolved with piriformis release and some gentle muscle energy techniques. Advised patient with her current situation she should not be out doing yard work or anything that requires her to squat or bend. 11. Bilateral knee effusions - ICD9: 719.06, ICD10: M25.461, M25.462 12. Primary osteoarthritis of both knees - ICD9: 715.16, ICD10: M17.0 Offered to x-ray knees and consider PT and/or steroid injections however I would not want to do steroid injections until cardiac issues are resolved. Patient declined x-rays of both hip and knee. Follow-up in 3 months or as needed. Patient is going to see cardiology next week. Many questions from were answered. Doreen Le PA-C [facility] Telephone encounter Note * Telephone Encounter - Doreen Le PA-C - 11/03/2023 10:36 AM EDT She needs to see person scheduled next week. She may need additional appointment with the pulmonology specialist in addition but haven't heard from Dr. Burdick yet. Edmund Alex PA-C [facility]05-01-[facility] Miscellaneous Notes* Telephone Encounter - Doreen Le PA-C - 11/03/2023 10:36 AM EDT She needs to see person scheduled next week. She may need additional appointment with the pulmonology specialist in addition but haven't heard from Dr. Burdick yet. Edmund Alex PA-C * Telephone Encounter - Uma Parson MA - 11/02/2023 10:59 AM EDT After review pt is currently scheduled with a Wort Extractor in [place] on 11/08/23. This was setup on10/25/23. Her Cardiology appt with Clara is in January. Is she still following with him or seeing someone new? Uma Parson MA * Telephone Encounter - Doreen Le PA-C - 11/02/2023 10:54 AM EDT Please see if we can expedite cardiology visit to LIA r/t SOB, weight gain, lower extremity swelling and recent abnormal echo finding. Patient is willing for invasive procedures if necessary. Thanks, Edmund Le PA-C documented in this encounterL[facility]04-30-[facility] Telephone encounter Note * Telephone Encounter - Sandra Thacker LPN - 11/02/2023 5:13 PM EDT Patient notified. Verbalized understanding. Is scheduled for for follow up. [facility]04[facility]30[facility] Miscellaneous Notes* Telephone Encounter - Sandra Thacker LPN - 11/02/2023 5:13 PM EDT Patient notified. Verbalized understanding. Is scheduled for for follow up. * Telephone Encounter - Doreen Le PA-C - 11/02/2023 5:04 PM EDT Please advise from [facility]ival message: Hi Cassidy You labs show you are significantly dehydrated- this is the issue with diuretics, your potassium iselevated likely from addition aldactone. Your BNP is lower ( test for CHF also affected by kidney). Your H+H is down from 6 months ago Vit D is in normal range. We have to balance the diuretics to avoid dehydration and alkalosis (increase pH). Let's cut back on lasix to 40mg daily with extra 20mg as currently directed. Recheck BMP in 1 week. Recheck CBC and BMP in [address] orders. Telephone on 11/02/23 COMPLETE BLOOD COUNT AND DIFFERENTIAL IRON AND TIBC BASIC METABOLIC PANEL Edmund Alex PA-C documented in this encounterL[facility]04-30-[facility] Telephone encounter Note * Telephone Encounter - Doreen Le PA-C - 11/02/2023 5:04 PM EDT Please advise from Nival message: Hi Cassidy You labs show you are significantly dehydrated- this is the issue with diuretics, your potassium iselevated likely from addition aldactone. Your BNP is lower ( test for CHF also affected by kidney). Your H+H is down from 6 months ago Vit D is in normal range. We have to balance the diuretics to avoid dehydration and alkalosis (increase pH). Let's cut back on lasix to 40mg daily with extra 20mg as currently directed. Recheck BMP in 1 week. Recheck CBC and BMP in [address] orders. Telephone on 11/02/23 COMPLETE BLOOD COUNT AND DIFFERENTIAL IRON AND TIBC BASIC METABOLIC PANEL Thanks, Edmund Le PA-C [facility]04[facility] Telephone encounter Note* Telephone Encounter - Uma Parson MA - 11/02/2023 10:59 AM EDT After review pt is currently scheduled with a Wort Extractor in [place] on 11/08/23. This was setup on10/25/23. Her Cardiology appt with Clara is in January. Is she still following with him or seeing someone new? Uma Parson MA [facility]04-30-[facility] Telephone encounter Note* Telephone Encounter - Doreen Le PA-C - 11/02/2023 10:54 AM EDT Please see if we can expedite cardiology visit to LIA r/t SOB, weight gain, lower extremity swelling and recent abnormal echo finding. Patient is willing for invasive procedures if necessary. Edmund Alex PA-C [facility]04-16-[facility] History of Present illness Narrative* Lars Silva DO - 10/19/2023 4:00 PM EDT Reviewed DVT study with Cassidy. No evidence of DVT. Recommend follow up as scheduled with PCP and cardiology. documented in this encounterL[facility]04-[facility] History of Present illness Narrative* Marisol Cook, RT(R) - 10/18/2023 2:30 PM EDT Radiology Service Progress Note PATIENT NAME: Berta Sanches DATE OF SERVICE: October 18, 2023 TIME: 2:28 PM PATIENT IDENTITY VERIFICATION COMPLETED USING TWO (2) IDENTIFIERS: Name and Date of confirmedby patient verbally. FALL SCREENING: Has the patient had 2 falls in the last year or 1 fall with injury or currently using an Ambulatory Assistive Device (Walker, Cane, Wheelchair, Crutches, etc.)? No PATIENT GENDER DATA: Female. status: : No status: NO. PATIENT RELEVANT IMPLANT DATA REVIEWED: Yes PATIENT PRESENTS WITH AN IMPLANTABLE OR ATTACHED MEDICAL OFFICE REPRESENTATIVE: No RADIOLOGY DEPARTMENT: General X-ray: Exam(s) Completed: Chest X-Ray PERIPHERAL IV DATA: Not applicable SIGNED BY: RT Mario(Annalisa) October 18, 2023 2:28 PM documented in this encounterL[facility]04-15-2024 Instructions* Patient Instructions* Doreen Le PA-C - 10/18/2023 1:52 PM EDT Lasix 20mg tabs: Take 3 tabs daily (60mg) until your breathing improves Once breathing improves: Take 40mg daily with the addition of an extra 20mg tab as needed IF weightgain > 3lbs in a day or 5lbs in a week asscoiated with increase swelling or increased shortness of breath. Add aldactone 25mg daily. Recheck non-fasting lab in 2 weeks. documented in this encounterL[facility]04-15-[facility] History of Present illness Narrative* Doreen Le PA-C - 10/18/2023 1:00 PM EDT 78 year old female with c/o here for Pedro Aneurysm Neurosurgeon Dr. 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 No additional intracranial aneurysms identified. 12/07/2017 note: f/u MRA recommended 202012/02/2017 MRA brain WO/W: Endovascular coil mass involving the anterior communicating artery. No evidence of residual filling, aneurysm recurrence or coil impaction. Patent intracranial circulation. No evidence of aneurysm, occlusion, high-grade intracranial stenosis. 11/03/2017 F/U Dr. 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 (Ranjan 0) Sss (sick sinus syndrome) ([facility]) Paroxysmal atrial fibrillation ([facility]) S/p placement of cardiac pacemaker (primary encounter diagnosis) Chronic combined systolic and diastolic chf (congestive heart failure) ([facility]) Dilated cardiomyopathy ([facility]) [facility] H/o rheumatic heart disease History of prosthetic aortic valve replacement History of pulmonary embolism Presence of watchman left atrial appendage closure device Platelet inhibition due to plavix Primary hypertension Hyperlipidemia with target ldl less than 70 Cardiovascular interval hx: 03/30/[address] Mirella Silva MD: 01/27/2023 PVR bilateral lower extremitiy: RIGHT SIDE Resting right ankle brachial index: 0.43 Abnormal ankle brachial index at rest diagnostic of peripheral artery disease. Right ankle: Moderate disease at rest. Aortic or bilateral iliofemoral disease. Distal superficial femoral and/or popliteal disease called by tracings. Right infrapopliteal disease. LEFT SIDE Resting left ankle brachial index: 0.58 Abnormal ankle brachial index at rest diagnostic of peripheral artery disease. Left ankle: Moderate disease at rest. Aortic or bilateral iliofemoral disease. Left superficial femoral disease. Left infrapopliteal disease. 01/27/2023 US carotids: IMPRESSION Compared to prior study of 10/24/2018, [...] carotid artery: 40-59% stenosis. Tortuous vessel at proximal. Vertebral artery: Patent and antegrade flow noted. Subclavian artery: 50-99% stenosis. 01/07/2023 12/29/2022 pacer interrogation PRESENTING EGM: AP/VS BATTERY STATUS: Estimated time remaining to YUE is 11.8 yr. COUNTERS SINCE: 09/21/22 ATRIAL ARRHYTHMIAS: There have been several shorter AT/AFL detections at A rates 150-170 bpm, most only minutes one about an hour (burden <0.1%) Anticoagulants listed: Plavix and aspirin. VENTRICULAR ARRHYTHMIAS: There have been no ventricular detections. LEAD MEASUREMENTS: Sensing and capture are appropriate. Review of the lead impedance trends are normal. OTHER DIAGNOSTICS: RA pacing 79%. LBB-V pacing 6%. FOLLOW UP: Continue 3 month remote transmissions and yearly in-clinic interrogations. Ralph Hopkins RN 09/28/2022 f/u Dr. Joan Davidson. Ordered echo for follow up. 06/23/2022 pacemaker remote data: AF 45/3% burden, 1n VT, pacing 11.7% 03/19/2022 EKG: AF with RVR, VC's 03/19/2022 CT chest w/ IVCON PE: No CT evidence of pulmonary embolism. Nondiagnostic regions of segmental and subsegmental pulmonary arteries. Mediastinal and bilateral hilar adenopathy, possibly reactive. Clinical correlation and consideration to 3 month follow-up recommended 5-6 mm right lower lobe nodule. 3-6 month follow-up recommended. Trace left and small right pleural effusions 2.5 cm mass superior pole right kidney, concerning for neoplasm. Groundglass density anterior right lung, possible inflammation/infection Areas of mosaic attenuation, suggesting small airways/small vessels disease Dilated ascending aorta 4.5 cm. Biatrial enlargement. Findings of right heart dysfunction. Coronary artery calcifications 03/03/2022 echo: LV size WNL, LVSF moderately decreased , EF 38%-worse from prior RV size WNL. RVSF moderately-severely decreased.and worse from prior. RVSP 41mmHg. LA dilated with left atrial appendage no bilobed, Watchman device implanted, no thrombus, small leak.RA dilated. MV with 3+MR due to restricted leaf motion with regurgitant jet, moderate thickening, mild calcification. Peak /mean gradietn 16/8mmHg TV: 1-2+ TVr. AV: Cryolife prosthetic valve #28, 2-3+ AVr PV: tr PVr 11/26/2021 PVR: RIGHT GILDA 0.41, TBI 0.26; dx PAD LEFT: ABIi 0.63,TBI: 0.29 Bilateral ankle , moderate disease at rest. Aortic or iliofemoral disease. Right small vessel disease versus vasoconstriction. 03/22/2020 echo, Dr. Miller: LV mildly dilated, conc LVH, EF 60%, stage 2 diast dysf; RV size and RVSF NL; LA severely dilated, moderate 2-3+ MVR; prosthetic Cryolife valve: 2+ AVR with peak gradient 47/mmHg and mean 23mmHg up from . 03/24/2019 chest CTA 1. Small incompletely occluded PE 2nd and 3rd branch right upper lobe PA 2. extensive calcification aortic root with 4.5cm fusiform dilatation mid- ascending aorta 3. Atherosclerotic calcifications with ostial stenosis celiac trunk, SMA, bilateral renal arteries 4. Small dependent pleural effusions, larger on right, compressive atelectasis posterior lung bases.Bilateral small pleural effusions R>L. Additional: 3.95 x 2.85 x 1.1 cm right subcarinal node grossly increased in size 2.5 x 1.7 x 0.9cm right hilar node Ill defined density with scarring apical RUL unchanged. Subsegmental atelectasis bilateral lung bases, anteromedial AZUCENA. 5mm pleural density new 10/24/18 echo surveillance prosthetic valve (3yrs): LV severely dilated, mild concentric LVH, LVEF NL, EF = 56%. IndeterminateLVDD. RV size and RVSF NL. LA severely dilated, MR 2+, Cryolife prostheticaortic valve (size #28). AR 1-2+ w/ peak gradient 24 mmHg, mean gradient is 14 mmHg and the dimensionless valve index is 0.36. Comparison 11/19/2016, Moderate MR and AI has not progressed. 05/27/16 bilateral carotid US: moderate 50-69% stenosis right and left 1999: valve replacement, bioprosthetic, h/o rheumatic heart disease. Her valve has regurgitation and needs echo every year. Current meds: Losartan 50mg daily Metoprolol succinate 50mg ER twice a day Furosemide 20mg 2 tabs daily ASA 81mg daily Clopidogrel 75mg daily Simvastatin 20mg daily HS Use of NTG: No Chest pain, arm, jaw pain, neck, or upper back pain suggestive of angina: No. SOB: increased SOB over last several weeks, while in [place] and end of July. Had Covid 19 URI in July. Bilateral leg swelling. Dyspnea with exertion: No orthopnea: Able to sleep in bed with 1 pillow but about 5 a has to move to recliner to elevate. Gets congested Cough: No racing or irregular heartbeats: No palpitations: No syncopal sx: No Headache: No Unexplainable fatigue: exhausted with minimal activity. Leg swelling: No Nausea: No diaphoresis: none Heartburn: No Claudication: Yes Worst problem currently are legs. Has to get up and walk around. Drinks tonic water with quinine. Pain is excruciating. Severe pain. Not every night. Smoking: No Following Low cholesterol, high fiber diet? Yes If on statin: muscle aches? No If on statin: GI sx or diarrhea? No Additional history notes some tenderness anterior distal calf over varicosity. Lab review: Component Latest Ref Rng & Units 05/14/2022 10/05/2022 04/07/2023 WBC 3.70 - 11.00 k/uL 8.46 7.74 RBC 3.90 - 5.20 m/uL 4.63 4.29 Hemoglobin 11.5 - 15.5 g/dL 14.0 13.4 Hematocrit 36.0 - 46.0 % 42.4 39.9 MCV 80.0 - 100.0 fL 91.6 93.0 MCH 26.0 - 34.0 pg 30.2 31.2 MCHC 30.5 - 36.0 g/dL 33.0 33.6 RDW-CV 11.5 - 15.0 % 14.7 13.7 Platelet Count 150 - 400 k/uL 169 186 MPV 9.0 - 12.7 fL 10.1 10.0 Neut% % 50.6 50.5 Abs Neut (ANC) 1.45 - 7.50 k/uL 4.27 3.92 Lymph% % 33.3 35.3 Abs Lymph 1.00 - 4.00 k/uL 2.82 2.73 Poinsett% % 13.0 10.2 Abs [place] <0.87 k/uL 1.10 (H) 0.79 Eosin% % 2.0 2.5 Abs Eosin <0.46 k/uL 0.17 0.19 Baso% % 0.9 1.2 Abs Baso <0.11 k/uL 0.08 0.09 Immature Gran % % 0.2 0.3 IMMATURE GRANS (ABS) <0.10 k/uL <0.03 <0.03 NRBC /100 WBC 0.0 0.0 Absolute nRBC <0.01 k/uL <0.01 <0.01 DTYPE Auto Auto Iron 41 - 186 ug/dL 68 87 TIBC 232 - 386 ug/dL 390 (H) 406 (H) Transferrin Saturation 15.0 - 57.0 % 17.4 21.4 Ferritin 14.7 - 205.1 ng/mL 109.0 73.3 Component Latest Ref Rng & Units 10/05/2022 04/07/2023 Protein, Total 6.3 - 8.0 g/dL 7.1 7.1 Albumin 3.9 - 4.9 g/dL 4.1 4.1 Calcium 8.5 - 10.2 mg/dL 9.5 9.3 Bilirubin, Total 0.2 - 1.3 mg/dL 0.7 0.5 Alkaline Phosphatase 34 - 123 U/L 106 80 AST 13 - 35 U/L 17 21 ALT 7 - 38 U/L 9 14 Glucose 74 - 99 mg/dL 149 (H) 147 (H) BUN 7 - 21 mg/dL 24 (H) 26 (H) Creatinine 0.58 - 0.96 mg/dL 1.09 (H) 1.12 (H) Sodium 136 - 144 mmol/L 138 136 Potassium 3.7 - 5.1 mmol/L 4.6 4.3 Chloride 97 - 105 mmol/L 99 101 CO2 22 - 30 mmol/L 28 24 Anion Gap 9 - 18 mmol/L 11 11 eGFR >=60 mL/min/1.73m 52 (L) 51 (L) Component Latest Ref Rng & Units 03/21/2022 03/22/2022 Haptoglobin 31 - 238 mg/dL 123 123 LD 135 - 214 U/L 242 (H) 251 (H) Vitamin D 25 Hydroxy 31.0 - 80.0 ng/mL 36.5 PTH, Intact 15 - 65 pg/mL 60 Magnesium 1.7 - 2.3 mg/dL 2.1 Component Latest Ref Rng & Units 10/05/2022 04/07/2023 Cholesterol, Total <200 mg/dL 138 139 Triglyceride <150 mg/dL 99 138 HDL Cholesterol >39 mg/dL 46 45 Non HDL Cholesterol <130 mg/dL 92 94 Fasting Time hrs 10 12 VLDL Cholesterol <30 mg/dL 20 28 TC:HDL Ratio <5.10 3.00 3.09 LDL Cholesterol <100 mg/dL 72 66 LDL:HDL Ratio <2.54 1.57 1.47 Last 3 Encounter BP Readings: Date: BP: 10/18/2023 144/76 10/14/2023 153/73 07/05/2023 158/80 06/01/2023 07/05/2023 10/14/2023 10/18/2023 Vitals WEIGHT in POUNDS 147 lb 6.4 oz 157 lb 3.2 oz 166 lb 6.4 oz WEIGHT in KILOGRAMS 66.86 kg 71.305 kg 75.479 kg Lung nodule, solitary Has not yet scheduled chest CT follow up 04/30/2023 Chest WO: IMPRESSION: 1. Stable subcentimeter pulmonary nodules. No new nodules are visualized. 2. Decreased size of a subcarinal lymph node Scarring in the anterior right upper and middle lobes. 03/19/[address] wIVCON PE: Impression: 5-6 mm right lower lobe nodule. 3-6 month follow-up recommended. Diabetes Mellitus Type 2: Current medications: none Taking medication as directed consistently? N/A Medication side effects: N/A Medical Issues / Complications: hypertension, hyperlipidemia, and cardiovascular disease Checking blood sugars at home? No. Watching diet? No Physical Activity: Sedentary Hypoglycemic spells? No Any visual disturbance? No Chest pain? No New numbness, tingling or loss of sensation? No Any recent foot problems, sores or rashes? No Any recent or sudden weight loss? No Change in urination? No. If yes: Any recent illness? No Last eye exam: up to date. Last foot exam: up to date. HBA1C: Hemoglobin A1C (%) Date Value 04/07/2023 7.0 01/01/2023 7.7 12/11/2020 7.0 07/12/2020 6.6 ) CMP: Glucose 147 04/07/2023 BUN 26 04/07/2023 Creatinine 1.12 04/07/2023 Sodium 136 04/07/2023 Potassium 4.3 04/07/2023 Chloride 101 04/07/2023 CO2 24 04/07/2023 Protein, Total 7.1 04/07/2023 Albumin 4.1 04/07/2023 Calcium 9.3 04/07/2023 Alkaline Phosphatase 80 04/07/2023 Bilirubin, Total 0.5 04/07/2023 AST 21 04/07/2023 ALT 14 04/07/2023 Last 2 Encounter Wt Readings: Chronic renal failure, stage 3b (hcc) Renal mass, right 10/08/[address] Brayan Chicas: states he told her follow up was really optional and her choice IMPRESSION: PLAN: 2.5 cm right solid renal mass. Discussed options for further evaluation treatment including but not limited to right partial nephrectomy, cryoablation, RFA, observation and discontinuing testing. She states that she has multiple medical problems and is not interested in pursuing any further evaluation or treatment. I have asked her specifically if this lesion were to increase in size whether she would consider treatment at that time and she states that she would not. She would like to simply follow-up on an as-needed basis. I have elected to order renal ultrasound for her for next year in case she changes her mind. 10/05/2022 US kidney: Upper pole solid right renal mass is stable. This is consistent with neoplasm. Dedicated renal imaging may be helpful No hydronephrosis 03/19/2022 CT ABD/PEL wIVCON:Redemonstrated 2.5 cm mass in the superior pole of the right kidney 06/12/19 CTABD/PEL w/ IVCON: demonstrated persistent sigmoid wall thickening consistent with diverticulitis and small collection of fluid along the inferior aspect of the sigmoid colon probably residual abscess, less likely prominent diverticulum and also right upper pole renal mass suspicious for renal cell carcinoma which was not evident on prior CT of 2016 but which also was not identified and her recent CT scans which were done in [facility]. Gastroesophageal reflux disease without esophagitis Esophageal stenosis Diverticulitis large intestine w/o perforation or abscess w/o bleeding Iron malabsorption History of ischemic colitis Adenomatous polyp of descending colon Current medication: Omeprazole 40mg daily. Current symptoms: none. Last Mg level if on PPI chronically: 03/22/2022 2.1. Heartburn is controlled: No. Dysphagia: No but has to be cautious. Apple caught in throat. Bloody or black stools: No. Bowel changes: bowels 2-3 times a week fecal incontinence, sometimes almost like diarrhea but sometimes more formed. Last EGD and/or colonoscopy: no recommendations for surveillance given. 02/23/2022: Colonoscopy Dr. Brayan Whitehead: Two 3 to 5 mm polyps in the ascending colon, removed with a cold snare. Resected and retrieved. Blood in the entire examined colon. Diverticulosis in the sigmoid colon and in the descending colon. Internal hemorrhoids. The examination was otherwise normal. FINAL DIAGNOSIS A. Colon, ascending polyps (x2), biopsy: -Tubular adenoma. -Fragments of sessile serrated polyp. 01/02/2022 EGD: Dr. Chai Encinas: Normal examined jejunum. Normal examined duodenum. Gastritis. Biopsied. Non-severe reflux esophagitis. Biopsied. FINAL DIAGNOSIS A. Stomach, antrum, biopsy: - Chronic active gastritis; see comment. B. Esophagus, lower, biopsy: - Squamous mucosa and slight chronically inflamed gastric mucosa; negative for intestinal metaplasia and dysplasia. 02/22/2022 CT abd/pel w IVCON Liver: Calcified granulomas. Subcentimeter hypodensity in the lateral segment of the left lobe of the liver is too small to characterize. Biliary: Normal gallbladder. No duct dilation. Spleen: Calcified splenic granulomas. Pancreas: No mass or ductal dilation. Adrenals: No mass. Kidneys: No enhancing mass or hydronephrosis. Redemonstrated 2.5 cm mass in the superior pole of the right kidney. GI tract: Small hiatal hernia. Surgical sutures around the sigmoid colon. Scattered colonic diverticula. No dilation or wall thickening. Appendix: Normal Lymph nodes: No lymphadenopathy. Mesentry/Peritoneum/Retroperitoneum: No ascites or mass. Vasculature: Marked calcified changes of the abdominal aorta without aneurysm. Chronic severe stenosis of the celiac, superior mesenteric artery, bilateral proximal superficial femoral arteries. Pelvis: The uterus is not visualized. No adnexal mass. Normal bladder. Soft Tissues: Left groin surgical clips. Bones: No acute findings. Grade 1 anterolisthesis L4 with respect to L5. Advanced degenerative changes of the lumbar spine. 02/07/2021 US RUQ Coarse hepatic echotexture. No hepatic mass. Gallbladder contains a small amount of sludge. HISTORIES FAMILY HISTORY Problem Relation Age of Onset other (Heart Problems) Mother other (myocardial infarction) Mother other (cardiovascular disease) Mother other (Heart Attack) Father other (cardiovascular disease) Father Diabetes Maternal Grandmother PAST MEDICAL HISTORY Diagnosis Date Abnormal colonoscopy [...] Pedro aneurysm of anterior communicating artery Dr. Aaorn [facility] Bilateral carotid artery stenosis 11/26/2016 [...] 06/01/16 Mitral valve regurgitation Pacemaker 10/21/[address] TRELL VERNON [id number] pulse generator, his bundle lead, right atrial lead Peripheral arterial disease (HCC) Rheumatic fever Steatosis, liver 03/26/2014 fatty liver on US. 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 Lua PACEMAKER 10/2019 PART. HYSTERECTOMY W/WO RMVL OVARIES/TUBES 1974 h/o cervical cancer ovaries remain PAST SURGICAL HISTORY OF 1996 Aortic valve repair, Dr. Apodaca PAST SURGICAL HISTORY OF 2001 [address] Beltrán, [facility] PAST SURGICAL HISTORY OF 2016 clipping and coil for brain aneurysm Social History Tobacco Use Smoking status: Former Packs/day: 0.25 Years: 2.00 Additional pack years: 0.00 Total pack years: 0.50 Types: Cigarettes Quit date: 1967 Years since quittin.3 Smokeless tobacco: Never Vaping Use Vaping Use: Never used Substance Use Topics Alcohol use: Not Currently Alcohol/week: 1.0 standard drink of alcohol Types: 1 Glasses of Wine (5oz) per week Comment: red wine 2-3 times a week- occasional Drug use: No ACTIVE PROBLEM LIST History of Prosthetic Aortic Valve Replacement Aortic Prosthetic Valve Regurgitation Htn (Hypertension) Hyperlipidemia With Target Ldl Less Than 70 Gerd (Gastroesophageal Reflux Disease) Chronic Anticoagulation Fatigue Sob (Shortness of Breath) H/O Rheumatic Heart Disease Basal Cell Carcinoma Left Shoulder Pain Bilateral Carotid Artery Stenosis Osteopenia of Left Lower Leg Mastoiditis of Right Side Chronic Mastoiditis of Left Side Personal History of Colonic Polyps History of Ischemic Colitis Adenomatous Polyp of Descending Colon Skin Cancer Pad (Peripheral Artery Disease) ([facility]) Pedro Aneurysm of Anterior Communicating Artery Stage 3 Chronic Renal Impairment Associated With Type 2 Diabetes Mellitus ([facility]) History of Pulmonary Embolism Ascending Aorta Dilatation (Hcc) Chronic Bilateral Pleural Effusions Colovesical Fistula Right Renal Mass Diverticulitis Large Intestine W/O Perforation Or Abscess W/O Bleeding Renal Cell Carcinoma, Right (Hcc) Iron Deficiency Anemia Hypomagnesemia Gastrointestinal Hemorrhage Associated With Acute Gastritis Esophageal Stenosis Dilated Cardiomyopathy (Hcc) Chronic Combined Systolic and Diastolic Chf (Congestive Heart Failure) (Hcc) Sss (Sick Sinus Syndrome) ([facility]) Duodenal Ulcer Type 2 Diabetes Mellitus With Diabetic Peripheral Angiopathy Without Gangrene, Without Long-Term Current Use of Insulin (Hcc) Longstanding Persistent Atrial Fibrillation (Hcc) S/P Placement of Cardiac Pacemaker Ckd (Chronic Kidney Disease) Platelet Inhibition Due to Plavix Diverticulosis Lung Nodule, Solitary Red Blood Cell Antibody Positive Iron Deficiency Anemia Secondary to Inadequate Dietary Iron Intake Iron Malabsorption Chronic Renal Failure, Stage 3b (Hcc) Spondylolisthesis At L4-L5 Level Occlusion of Superior Mesenteric Artery (Hcc) Current Outpatient Medications Medication Sig Dispense Refill metoprolol succinate ER (TOPROL XL) 50 mg 24 hr tablet Take 1 tablet by mouth two times a day. 180 tablet 3 furosemide (LASIX) 20 mg tablet Take 2 tablets by mouth once daily. 180 tablet 3 losartan (COZAAR) 50 mg tablet Take 1 tablet by mouth once daily. 90 tablet 3 omeprazole (PRILOSEC) 40 mg capsule Take 1 capsule by mouth once daily. 90 capsule 1 simvastatin (ZOCOR) 20 mg tablet Take 1 tablet by mouth daily at bedtime. 90 tablet 3 Blood Pressure Monitor (BLOOD PRESSURE KIT) 1 Each once daily. 1 Each 0 clopidogrel (PLAVIX) 75 mg tablet Take 1 tablet by mouth once daily. Only for 6 months. After that stay on ASA 81 mg daily, (Patient not taking: Reported on 10/14/2023) 90 tablet 1 aspirin 81 mg chewable tablet Take 1 [...] Take 1 capsule by mouth once daily. Current Facility-Administered Medications Medication Dose Route Frequency Provider Last Rate Last Admin perflutren lipid microspheres 1.3 mL in NaCl (PF) 0.9% 10 mL injection (DEFINITY) INTRAVENOUS DIRECTED PRN Carla Burdick MD sodium chloride 0.9 % (flush) 10 mL (BD POSIFLUSH) 10 mL INTRAVENOUS DIRECTED PRN Lisset Burdick MD BP Controlled (<130/80) Never done RSV Vaccine(1 - 1-dose 60+ series) Never done Diabetic Foot Exam due on 04/06/2023 Advance Directive Discussion due on 07/05/2023 Behavioral Health Screening Never done HbA1C due on 10/07/2023 EXAM: BP 144/76 Pulse 90 Resp 20 Wt 75.5 kg (166 lb 6.4 oz) SpO2 99% BMI 30.93 kg/m Pleasant older adult woman in no acute distress. Alert and oriented all spheres. Normal affect and cognition. Speech normal. No deficits to learning or comprehension. Skin warm, dry, pink to lips and nailbeds. Normal turgor. Respirations regular and unlabored. No resting SOB or retractions. HEENT: NCAT. No scleral icterus or conjunctival injection. TM's clear. Nose and oropharynx free from injection or lesion. Oral membranes moist and pink. No cervical lymph nodes. Thyroid non-tender, no masses, or enlargement. Carotids pulses 2+/4+ without bruits. No JVD with HOB at 30 degrees. Chest appears normal. No dullness in bases to percussion. Chest is normal shape. Lungs are clear to all rosas with good air exchange through out. HRRR without murmur or gallop. No lifts, heaves, or rubs. Extrem: no clubbing or cyanosis. Edema: 2/4+ from lower legs into mid thighs. Extremities are warm and pink with prompt capillary refill. CXR: no evidence of CHF, cardiomegaly ASSESSMENT/PLAN: 1. History of prosthetic aortic valve replacement - ICD9: V43.3, ICD10: Z95.2 (primary diagnosis) 2. SSS (sick sinus syndrome) ([facility]) - ICD9: 427.81, ICD10: I49.5 3. Paroxysmal atrial fibrillation ([facility]) - ICD9: 427.31, ICD10: I48.0 4. S/P placement of cardiac pacemaker - ICD9: V45.01, ICD10: Z95.0 5. Chronic combined systolic and diastolic CHF (congestive heart failure) ([facility]) - ICD9: 428.42, 428.0, ICD10: I50.426. Dilated cardiomyopathy ([facility]) - ICD9: 425.4, ICD10: I42.0 7. Ascending aorta dilatation ([facility]) - ICD9: 447.71, ICD10: I77.810 8. History of pulmonary embolism - ICD9: V12.55, ICD10: Z86.711 9. Presence of Watchman left atrial appendage closure device - ICD9: V45.09, ICD10: Z95.818 No anginal sx. Has SOB and profound edema. Will proceed with echo Addition of aldactone 25mg cautiously Increase lasix to 60mg daily until SOB improves, CXR showed no failure which is odd Once SOB resolved Lasix 40mg daily and additional 20mg prn SOB/increasing leg edema with > 3lb weight gain in 24h or 5lb weight gain in a week. - DEFINITY CONTRAST - ECHO - PERFLUTREN LIPID MICROSPHERES 1.1 MG/ML INJECTION IN NS 10 ML - SODIUM CHLORIDE 0.9 % (FLUSH) INJECTION SYRINGE - INSERT IV (WV,IL) - IV DISCONTINUE 10. Platelet inhibition due to Plavix - ICD9: V58.63, ICD10: Z79.02 stable 11. Primary hypertension - ICD9: 401.9, ICD10: I10 - Controlled - Continue current medications - Recommend home blood pressure monitoring, to bring results to next visit - Encouraged sodium restriction, DASH or Mediterranean diet - Recommend regular aerobic exercise 12. Hyperlipidemia with target LDL less than 70 - ICD9: 272.4, ICD10: E78.5 - Controlled - Continue current medications - Counseled on healthy diet and regular exercise 13. Hx Heme + stool - ICD9: 792.1, ICD10: R19.5 14. Epigastric pain - ICD9: 789.06, ICD10: R10.13 15. Blood loss anemia - ICD9: 280.0, ICD10: D50.0 Stable without sx: continue omeprazole - OMEPRAZOLE 40 MG CAPSULE,DELAYED RELEASE 16. Acute systolic CHF (congestive heart failure) (HCC) - ICD9: 428.21, 428.0, ICD10: I50.21 - New diagnosis See above - ECG COMPLETE - XR CHEST 2V FRONTAL/LAT - SPIRONOLACTONE 25 MG TABLET - NT PRO BNP - BASIC METABOLIC PANEL - COMPLETE BLOOD COUNT - ECG COMPLETE - ECHO - PERFLUTREN LIPID MICROSPHERES 1.1 MG/ML INJECTION IN NS 10 ML - SODIUM CHLORIDE 0.9 % (FLUSH) INJECTION SYRINGE Educated on new medication administration, warnings and cautions, common side effects, anticipated duration or therapy, and instructions on cessation management to avoid risks if stops medication. Patient choice was discussed in shared decision making. 17. Vitamin D deficiency - ICD9: 268.9, ICD10: E55.9 - VITAMIN D 25 HYDROXY 45 minute visit with complex and detailed history, additional education on medication Doreen Le PA-C documented in this encounterLake[facility]04-12-2024 Miscellaneous Notes* Telephone Encounter - Mckayla Albert LPN - 10/15/2023 4:35 PM EDT Images from the original note were not included. Carla Burdick MD You 1 hour ago (3:31 PM) I will place order for labs to see if this is CHF Vincent burdick Called patient. Verified name and date of . Informed of orders and will have labs done tomorrow. Mckayla Albert LPN * Telephone Encounter - Mckayla Albert LPN - 10/15/2023 10:05 AM EDT Patient called. Verified name and date of . Patient seen yesterday and has bilateral lower legedema and some shortness of breath. Per patient Dr. Silva feels it is related to her heart and advised patient to get into clinic sooner than her already scheduled appointment in January 2024. Patient has called [facility] that they told her they are scheduling into April but if seen there she cannot be seen back in [place] location which is her preference. Patient is willing to travel to [facility] if she needs to. Please review and advise. Mckayla Albert LPN documented in this encounterLakehealth [facility]04-11-2024 History of Present illness Narrative* Lars Silva, DO - 10/14/2023 2:57 PM EDT Images from the original note were not included. Heart , Vascular and Thoracic [place] DEPARTMENT OF VASCULAR SURGERY OUTPATIENT VISIT DATE October 14, 2023 OUTPATIENT VISIT TYPE ESTABLISHED SERVICE DATE: 10/14/2023 SERVICE TIME: 2:58 PM PRIMARY CARE PHYSICIAN: Doreen Le PA-C HISTORY OF PRESENT ILLNESS: Ms. Sanches is a 78 year old female who presents today for a vascular surgery follow-up visit has noticed increased bilateral lower extremity edema especially in thighs. She recently returned home from [place]. She had duplex in [place] which was negative for DVT. PAST MEDICAL HISTORY Diagnosis Date Abnormal colonoscopy [...] 06/01/16 Mitral valve regurgitation Pacemaker 10/21/[address] TRELL VERNON [id number] pulse generator, his bundle lead, right atrial lead Peripheral arterial disease (HCC) Rheumatic fever Steatosis, liver 03/26/2014 fatty liver on US. 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 Lua PACEMAKER 10/2019 PART. HYSTERECTOMY W/WO RMVL OVARIES/TUBES 1973 h/o cervical cancer ovaries remain PAST SURGICAL HISTORY OF 1996 Aortic valve repair, Dr. Apodaca PAST SURGICAL HISTORY OF 2001 [address] Beltrán, [facility] PAST SURGICAL HISTORY OF 2015 clipping and coil for brain aneurysm SOCIAL HISTORY Social History Tobacco Use Smoking status: Former Packs/day: 0.25 Years: 2.00 Additional pack years: 0.00 Total pack years: 0.50 Types: Cigarettes Quit date: 1968 Years since quittin.3 Smokeless tobacco: Never Vaping Use Vaping Use: Never used Substance Use Topics Alcohol use: Not Currently Alcohol/week: 1.0 standard drink of alcohol Types: 1 Glasses of Wine (5oz) per week Comment: red wine 2-3 times a week- occasional Drug use: No MEDICATIONS: metoprolol succinate ER (TOPROL XL) 50 mg 24 hr tablet^Take 1 tablet by mouth two times a day.^Disp: 180 tablet^Rfl: 3 furosemide (LASIX) 20 mg tablet^Take 2 tablets by mouth once daily.^Disp: 180 tablet^Rfl: 3 losartan (COZAAR) 50 mg tablet^Take 1 tablet by mouth once daily.^Disp: 90 tablet^Rfl: 3 omeprazole (PRILOSEC) 40 mg capsule^Take 1 capsule by mouth once daily.^Disp: 90 capsule^Rfl: 1 simvastatin (ZOCOR) 20 mg tablet^Take 1 tablet by mouth daily at bedtime.^Disp: 90 tablet^Rfl: 3 Blood Pressure Monitor (BLOOD PRESSURE KIT)^1 Each once daily.^Disp: 1 Each^Rfl: 0 aspirin 81 mg chewable tablet^Take 1 tablet by mouth once daily.^Disp: 30 tablet^Rfl: 11 acetaminophen (TYLENOL) 500 mg tablet^Take 1-2 tablets by mouth every 6 hours as needed.^Disp: ^Rfl: blood sugar diagnostic (BLOOD GLUCOSE TEST) test strip^Test blood sugar(s) 2 times daily. Dx: Type 2 DM - Controlled E11.9 Insulin: No^Disp: 50 Strip^Rfl: 11 UBIDECARENONE (COQ-10 ORAL)^Take 1 capsule by mouth once daily.^Disp: ^Rfl: clopidogrel (PLAVIX) 75 mg tablet^Take 1 tablet by mouth once daily. Only for 6 months. After that stay on ASA 81 mg daily,^Disp: 90 tablet^Rfl: 1 (Patient not taking: Reported on 10/14/2023) ALLERGIES: ALLERGIES Allergen Reactions Protamine Anaphylaxis Had acute drop in blood pressure and end tidal Co2 shortly after administration during watchman procedure on 01/12/22, treated with 60 mcg epinephrine and 10 mg dexamethasone with good response. Propofol Other: See Comments Hypotension PHYSICAL EXAM: BP 153/73 (BP Site: Left Arm, BP Position: Sitting, BP Cuff Size: Regular Adult) Pulse 85 SpO2 97% General: Alert and oriented Integumentary: Normal color, no rash, no lesions. Extremities: Edema Neurological: Normal cognition and motor skills. Vascular: non-palpable distal pusles Diagnostic tests reviewed for today's visit: Most recent labs Most recent imaging IMPRESSION: Ms. Sanches is a 78 year old female with lower extremity edema . PLAN and RECOMMENDATIONS: Recommend ultrasound to assess for DVT with recent prolonged travel Recommend compression as tolerated Follow up as scheduled with PCP on 10/17 and touch base with cardiology for a sooner appointment SIGNATURE: Lars Silva DO PATIENT NAME: Berta Sanches DATE: October 14, 2023 TIME: 2:58 PM documented in this encounterLake[facility]01-01-2024 History of Present illness Narrative* Bijan Cole MD - 07/05/2023 11:40 AM EST Patient presents with: Cough: Chest congestion x last night HPI: Feeling sick since last night. Positive symptoms: cough, feverish, Shortness of breath, Sore throat, Rhinorrhea, Post nasal drainage, Body Aches, Malaise, Fatigue, Negative symptoms: Vomiting, Diarrhea, OTC: Nyquil, Tylenol Son had viral illness - negative testing. PAST MEDICAL HISTORY Diagnosis Date Abnormal colonoscopy [...] 06/01/16 Mitral valve regurgitation Pacemaker 10/21/[address] TRELL VERNON [id number] pulse generator, his bundle lead, right atrial lead Peripheral arterial disease (HCC) Rheumatic fever Steatosis, liver 03/26/2014 fatty liver on US. No gallstones Tachy-pavan syndrome (HCC) MEDICATIONS: Current Outpatient Medications Medication Sig metoprolol succinate ER (TOPROL XL) 50 mg 24 hr tablet Take 1 tablet by mouth two times a day. furosemide (LASIX) 20 mg tablet Take 2 tablets by mouth once daily. losartan (COZAAR) 50 mg tablet Take 1 tablet by mouth once daily. omeprazole (PRILOSEC) 40 mg capsule Take 1 capsule by mouth once daily. simvastatin (ZOCOR) 20 mg tablet Take 1 tablet by mouth daily at bedtime. Blood Pressure Monitor (BLOOD PRESSURE KIT) 1 Each once daily. clopidogrel (PLAVIX) 75 mg tablet Take 1 tablet by mouth once daily. Only for 6 months. After that stay on ASA 81 mg daily, aspirin 81 mg chewable tablet Take 1 tablet by mouth once daily. acetaminophen (TYLENOL) 500 mg tablet Take 1-2 tablets by mouth every 6 hours as needed. blood sugar diagnostic (BLOOD GLUCOSE TEST) test strip Test blood sugar(s) 2 times daily. Dx: Type 2 DM - Controlled E11.9 Insulin: No UBIDECARENONE (COQ-10 ORAL) Take 1 capsule by mouth once daily. Current Facility-Administered Medications Medication Dose Route Frequency perflutren lipid microspheres 1.3 mL in NaCl (PF) 0.9% 10 mL injection (DEFINITY) INTRAVENOUS DIRECTED PRN sodium chloride 0.9 % (flush) 10 mL (BD POSIFLUSH) 10 mL INTRAVENOUS DIRECTED PRN ALLERGIES: ALLERGIES Allergen Reactions Protamine Anaphylaxis Had acute drop in blood pressure and end tidal Co2 shortly after administration during watchman procedure on 01/12/22, treated with 60 mcg epinephrine and 10 mg dexamethasone with good response. Propofol Other: See Comments Hypotension VITALS: BP 158/80 Pulse 90 Temp 36.9 C (98.5 F) Resp 20 Wt 71.3 kg (157 lb 3.2 oz) SpO2 98% BMI29.22 kg/m PHYSICAL EXAM: GEN: mildly ill appearing. Hard of hearing. Accompanied by her . HEENT: PERRL, EOMI, conjunctiva clear Ears: Irregular right TM with debris in the canal. Left hearing aid removed; LTM without erythema, bulge, or effusion Sinuses: non-tender frontal sinus, non-tender maxillary sinuses Throat: moist mucous membranes, mild erythema, no exudate Neck: supple, no thyromegaly, no lymphadenopathy HEART: regular rate and rhythm, 2/6 systolic murmur at apex LUNGS: clear to auscultation, no wheezes or crackles, no increased WOB ASSESSMENT/PLAN: 1. Influenza-like illness - ICD9: 487.1, ICD10: J11.1 - INFLUENZA A&B MOLECULAR (POC) - negative. - suspect viral URI, differential includes COVID-19. - Discussed supportive care treatment with home isolation, rest, heart safe cold medicine, and analgesia. - Red flags to seek further treatment include chest pain, shortness of breath, and lethargy; in theER if severe. - COVID & INFLUENZA A/B & RSV NAAT, ROUTINE - Needs medication interaction review if positive for COVID (plavix and simvastatin interactions). Bijan Cole MD documented in this encounterLake[facility]12-04-2023 Miscellaneous Notes* Telephone Encounter - Sheree Savage Ma - 06/07/2023 4:55 PM EST Patient stopped by office and picked up shoe. Small Squared toe post op shoe Sheree Savage Ma * Telephone Encounter - Sheree Savage Ma - 06/07/2023 1:49 PM EST Called pt and she will stop in office this afternoon to pickle processor post op shoe. Sheree Savage Ma * Telephone Encounter - Uma Parson Ma - 06/07/2023 9:43 AM EST See response from ptCoty Parson Ma documented in this encounterLakehealth [facility] Center11-28-2023 History of Present illness Narrative* Marisol Cook RT(R) - 06/01/2023 2:20 PM EST Radiology Service Progress Note PATIENT NAME: Berta Sanhces DATE OF SERVICE: June 01, 2023 TIME: 2:31 PM PATIENT IDENTITY VERIFICATION COMPLETED USING TWO (2) IDENTIFIERS: Name and Date of confirmedby patient verbally. FALL SCREENING: Has the patient had 2 falls in the last year or 1 fall with injury or currently using an Ambulatory Assistive Device (Walker, Cane, Wheelchair, Crutches, etc.)? No PATIENT GENDER DATA: Female. status: : No status: NO. PATIENT RELEVANT IMPLANT DATA REVIEWED: Yes RADIOLOGY DEPARTMENT: General X-ray: Exam(s) Completed: Lower Extremity X- Ray(s): Foot, Right and Wt. Bearing PERIPHERAL IV DATA: Not applicable SIGNED BY: RT Mario(R) June 01, 2023 2:31 PM documented in this encounterLakehealth [facility] Center10-27-2023 History of Present illness Narrative* Mckayla Reed RT(R) - 04/30/2023 8:00 AM EDT Radiology Service Progress Note PATIENT NAME: Berta Sanches DATE OF SERVICE: April 30, 2023 TIME: 1:48 PM PATIENT IDENTITY VERIFICATION COMPLETED USING TWO (2) IDENTIFIERS: Name and Date of confirmedby patient verbally. FALL SCREENING: Has the patient had 2 falls in the last year or 1 fall with injury or currently using an Ambulatory Assistive Device (Walker, Cane, Wheelchair, Crutches, etc.)? No PATIENT GENDER DATA: Female. status: : No status: NO. PATIENT RELEVANT IMPLANT DATA REVIEWED: Yes RADIOLOGY DEPARTMENT: CT; Exam(s) Completed: Chest PERIPHERAL IV DATA: Not applicable SIGNED BY: RT Ronny(R) April 30, 2023 1:48 PM documented in this encounterLakehealth [facility] Center10-09-2023 History of Present illness Narrative* Marisol Cook RT(R) - 04/12/2023 10:10 AM EDT Radiology Service Progress Note PATIENT NAME: Berta Sanches DATE OF SERVICE: April 12, 2023 TIME: 10:32 AM PATIENT IDENTITY VERIFICATION COMPLETED USING TWO (2) IDENTIFIERS: Name and Date of confirmedby patient verbally. FALL SCREENING: Has the patient had 2 falls in the last year or 1 fall with injury or currently using an Ambulatory Assistive Device (Walker, Cane, Wheelchair, Crutches, etc.)? No PATIENT GENDER DATA: Female. status: : No status: NO. PATIENT RELEVANT IMPLANT DATA REVIEWED: Yes RADIOLOGY DEPARTMENT: General X-ray: Exam(s) Completed: Upper Extremity X- Ray(s): Fingers/Thumb, right middle PERIPHERAL IV DATA: Not applicable SIGNED BY: RT Mario(R) April 12, 2023 10:32 AM documented in this encounterLakehealth [facility] Center09-11-2023 Miscellaneous Notes* Telephone Encounter - Margoth Bolaños MA - 03/15/2023 12:54 PM EDT NOV none scheduled. Margoth Bolaños MA * Telephone Encounter - Agueda Schulte - 03/15/2023 9:37 AM EDT Patient has been identified by name and date of : Yes Last office visit in this department: 01/07/2023 RX INSTRUCTIONS: Patient aware RX will be sent to pharmacy. No need to notify patient. Patient phones requesting refills as follows: Requested Prescriptions Pending Prescriptions Disp Refills omeprazole (PRILOSEC) 40 mg capsule 90 capsule 1 Sig: Take 1 capsule by mouth once daily. Please review and advise. Agueda Schulte documented in this encounterLakehealth [facility] Center07-27-2023 Miscellaneous Notes* Telephone Encounter - Bushra Strauss - 01/28/2023 10:43 AM EDT Patient has been contacted and scheduled with Dr. Silva * Telephone Encounter - Sheree Savage Ma - 01/28/2023 9:55 AM EDT Pt viewed Nival message. Please help pt set up consult. * Telephone Encounter - Doreen Le PA-C - 01/28/2023 6:33 AM EDT Please schedule: Telephone on 01/28/23 CONSULT TO VASCULAR SURGERY Pvd (peripheral vascular disease) with claudication (hcc) (primary encounter diagnosis) See [email or web address] regarding PVR resuts Thanks, Edmund Le PA-C documented in this encounterLakehealth [facility]point [facility] Center07-07-2023 Miscellaneous Notes* Telephone Encounter - Berta Keith - 01/08/2023 1:51 PM EDT Patient stated she will talk to Edmund at her appoitment.Betra Rahman * Telephone Encounter - Sheree Savage Ma - 01/08/2023 9:34 AM EDT Images from the original note were not included. Doreen Le PA-C P tr David Aldana Please assist patient to schedule outstanding CT chest WO to follow lung nodules if she is amenable Abi, Edmund Le PA-C documented in this encounterLakehealth [facility] Center07-06-2023 Instructions* Patient Instructions* Doreen Claudia Le PA-C - 01/07/2023 9:20 AM EDT Leg Cramps (Night Cramps) Leg cramps are common. The cause is not known in most cases. However, some medicines and some medical conditions can sometimes cause leg cramps. Regular calf stretching exercises may prevent leg cramps. Quinine tablets may be advised if you have leg cramps regularly. What are leg cramps? A leg cramp is a pain that comes from a muscle in the leg. It is due to a muscle spasm which is when a muscle contracts too hard. It usually occurs in one of the the calf muscles, below and behind a knee. The small muscles of the feet are sometimes affected. A cramp pain typically lasts a few minutes. In some cases it lasts just seconds, but in some cases it can last up to 10 minutes. The severity of the pain varies. The muscle may remain tender for up to 24 hours after a leg cramp. Leg cramps usually occur when you are resting - most commonly at nightwhen in bed. (They are often called night cramps.) They may wake you from sleep. It can become a distressing condition if your sleep is regularly disturbed. Who gets leg cramps? Many people have an occasional leg cramp. However, they occur frequently in some people. They are more common in older people. About 1 in 3 people over the age of 60, and about half of people over the age of 80 have regular leg cramps. About 4 in 10 people who have leg cramps have at least three per week. They occur every day in some cases. What causes leg cramps? Unknown cause (idiopathic leg cramps) In most cases the cause is not known. One theory is that cramps occur when a muscle that is alreadyin a shortened position is stimulated to contract. As the muscle is already shortened, to contract further may cause the muscle to go into spasm. This commonly happens at night in bed as the natural position we lie in is with the knees slightly bent (flexed), and with feet pointing slightly downwards. In this position the calf muscle is relatively shortened and prone to cramps. This theory explains why stretching exercises may cure the problem. Secondary causes In some cases, the cramps may be a symptom of another condition or problem. For example: Some medicines can cause cramps as a side-effect, or make cramps occur more often. These include: diuretics ('water tablets'), nifedipine, cimetidine, salbutamol, terbutaline, lithium, clofibrate, penicillamine, morphine (withdrawal), phenothiazines, and nicotinic acid. Over-exertion of muscles. Dehydration. Conditions that cause alterations in the balance of salts in the bloodstream (such as a high or lowsodium or potassium level). Some people who have renal (kidney) dialysis get leg cramps. - usually in the later stages. An untreated under-active thyroid gland. Peripheral vascular disease (narrowing of the leg arteries which causes poor circulation). Cirrhosis of the liver is a rare cause. Lead poisoning. Sarcoidosis. Rare disorders of nerves. Excess alcohol. With the above conditions the cramps would just be one of various other symptoms. Therefore, if youare otherwise well, and have no other unexplained symptoms, then the leg cramps are likely to be idiopathic (unknown cause) and not due to a secondary cause. Note: leg cramps are different to a condition called restless legs syndrome. In this condition the legs can be uncomfortable, you feel creeping sensations in the legs, and it is relieved by walking about. See separate leaflet called 'Restless Legs Syndrome' for details. What is the treatment for a leg cramp? Stretching and massaging the affected muscle (usually a calf muscle) can usually relieve an attack of cramp. Most cramps soon ease off. Painkillers are not usually helpful for a sudden attack of cramp. However, a painkiller such as paracetamol may help to ease muscle discomfort and tenderness that sometimes persists for up to 24 hours after a cramp has gone. What are the options for preventing leg cramps? If cramps do not occur often, then no particular treatment is usually needed. However, if you have frequent cramps, you may wish to consider ways of preventing them. Consider your medication (where appropriate) or other conditions Tell your doctor if you take any of the medicines listed above. It may be causing the leg cramps, or making them recur more often. Alternative medicines may be available. Also, if you have other symptoms apart from cramps, see your doctor who may examine you or do some checks to rule out a secondary cause for the cramps. Stretching exercises Stretching exercises are commonly advised. However, there is a lack of good research evidence to prove that it works. One research study concluded that stretching exercises did reduce the number and severity of cramps, but another study did not confirm this. So, as it may help, it is worth trying if you are able to do the exercises. If it works, you will not need any tablets to prevent the leg cramps. At first, do stretching exercises of affected muscles for about five minutes, three times a day. Dothe last exercise shortly before bedtime. If the cramps ease off, you may then only need to do the exercise once or twice a day to keep the cramps away. To stretch calf muscles, stand about 60-90 cm from a wall. Then, keeping the soles of your feet flat on the floor, bend forward and lean on the wall. You will feel your calf muscles stretch. Do this several times, each time for as long as you can manage. Posture of the legs when resting in bed Positions which prevent the calf muscle from shortening when you are asleep may help. The followingare not proven treatments (from research studies), but some experts believe that they help to prevent cramps. using a pillow to prop the feet up in bed while sleeping on your back. hanging the feet over the end of the bed while sleeping on your front. keeping blankets loose at the foot of the bed to prevent toes and feet from pointing downwards during sleep. Quinine Quinine tablets are a common treatment. Quinine often reduces the number and severity of leg cramps, but may not stop them altogether. One tablet at bedtime is the normal dose. A four week course is commonly tried at first and can be continued if the number of leg cramps is reduced. It may be worthstopping the quinine tablets every three months or so to see if they are still needed. Most people can take quinine, but do not take it if you are or may become . There are also some rare conditions where you should not take quinine. (These include: a previous reactionto quinine; a previous haemolytic anaemia; optic neuritis; glucose 6-phosphate dehydrogenase deficiency.) Side- effects are uncommon at the low dose used to treat leg cramps. Read the medicine packet leaflet for a full list of possible side-effects. Note: quinine is dangerous in overdose, particularly in children. Keep tablets away from children. Other treatments Other medicines have been suggested as possible treatments for leg cramps. These include: naftidrofuryl, vitamin E, verapamil, diltiazem, painkillers, aspirin, orphenadrine, magnesium, calcium, and sodium chloride. TENS machines have also been suggested as a possible treatment. So far there is little research evidence to prove that these treatments work well. Your doctor may suggest trying one if all else fails. MUSCLE CRAMPS - a patient's guide Editorial Team Muscles cramps are caused by prolonged spasms, or involuntary contraction of a muscle. Muscle cramps, especially those of the legs, are extremely common, more so in the elderly. Although not dangerous to health, in some cases they may be symptoms of an underlying problem. Treatment is usually massage and stretching and adequate fluid intake, although in cases where cramps are frequent, medicationmay be recommended. What is a muscle cramp? A muscle cramp is an involuntarily and forcibly contracted muscle that does not relax. Any of the muscles under voluntary control (skeletal muscles) can cramp. Cramps of the extremities are very common, especially the legs and feet, and particularly the calf (often termed a charley horse cramp). When a muscle (or even a few fibers of a muscle) involuntarily contracts, it is called a spasm and becomes a cramp when the spasm is forceful and sustained. Cramps can last anywhere from a few seconds to a quarter of an hour, and occasionally longer. It isnot uncommon for a cramp to recur several times before finally going away. The cramp may involve a part of a muscle, the entire muscle, or several muscles that usually act together. Most cramps are not a danger to health. Although they can be very uncomfortable, cramps are rarely a sign of a dangerous disease. Involuntary muscles such as those of the bowel, heart and uterus can also cramp. Involuntary musclecramps are not discussed in this article. How common are muscle cramps? Almost everyone - an estimated 95% - experiences a muscle cramp at some stage. A survey showed 30% of people suffered a cramp in the past year and 2% had them once a week. Although children can get them, cramps are more common in adults and tend to become more frequent with age. women and the elderly commonly experience nocturnal leg cramps. Muscle spasms in the calf - charley horse - can occur one or many times during the night, from a few seconds duration through to a few minutes. What causes muscle cramps? Muscle cramps can arise from a wide variety of causes: Muscle fatigue from exercise or overuse of particular muscles. Imbalances of fluids, hormones, or body salts (the electrolytes calcium, magnesium, potassium) or dehydration. A poor blood supply. Nerve abnormalities. Diseases affecting nerves and muscles. Some medications, for instance, diuretics. Cramps can be caused by muscle fatigue from sports or from unaccustomed activities. Cramp pain following exercise is usually relieved by rest, but in severe cases even rest offers no benefit, and pain can continue even when lying down. Muscle fatigue from sitting or lying for an extended period in an awkward position, or any repetitive use can cause cramps. Older adults are at risk of cramps whenperforming exaggerated physical activities. When injury such as a broken bone or strained muscle occurs, sometimes the muscles surrounding the injury spasm as a protective mechanism. In this case the spasm tends to minimize movement and stabilise the area of injury. Intermittent claudication is a problem in the arteries where the muscles in the legs are deprived of oxygen. Intermittent claudication is caused by blockages in the leg arteries from plaque buildup. Some conditions, most often diabetes, cause the legs to be numb or tingling, known as peripheral neuropathy. What is the treatment? Correct treatment depends on the cause of the cramps. For persistent and frequent cramps, a doctor will usually look at the patient's medical history, make a physical examination and perhaps arrange laboratory tests. This is to ascertain whether there is any serious underlying cause for the cramps. The most common and usually the most effective treatment for leg cramps is daily stretching of the affected muscles. Quinine has historically been used as a remedy for muscle cramps and there is evidence that it is modestly effective, however quinine supplements have been recently banned by the [place] Food and Drug administration for over the counter sales due to serious and fatal side effects. Quinine may still be prescribed by a doctor, but the risks and benefits of using it must be taken into account. Pioneering studies are underway using a compound called naftidrofuryl as an alternative to quinine. What are the risks of using Quinine? The risks associated with quinine relate to the side effects. These include ringing in the ears, decreased hearing, vertigo, blurred vision, nausea, vomiting, diarrhea, abdominal pain, flushing or itching of the skin, headache, and fever. In particular, quinine should not be used by people with ringing in the ears (tinnitus) or nerve disease of the nerve to the eyes (optic nerve). Patients with irregular heart rhythms, such as atrial fibrillation, should talk to their doctor about whether they can take quinine. How can a cramp be stopped? Most muscle cramps can be stopped if the muscle is stretched, either by standing up, massaging, or by applying cold packs. Stretch and massage a cramped leg by straightening it and pointing toes upward, while gently rubbing the cramped area to help the muscle relax. For a calf cramp - charley horse - put weight on the affected leg and bend the knee slightly. For a thigh cramp, keep both legs straight and lean forward at the waist, using a chair to steady yourself. A cold pack can be used to relax tense muscles. Following a cramp, a warm towel or heating pad can alleviate pain or tenderness. How can cramps be prevented? Drinking plenty of fluids may help to prevent reoccurring cramps, as fluids help muscles contract and relax. Drink 6-8 cups of liquid per day, preferably non- caffeinated drinks. Daily stretching may help prevent nocturnal leg cramps. Before sleep, stand just short of a metre from a wall with hands on the wall. While bending one knee, lean towards the wall and hold for ten seconds keeping the heels pressed flat to the floor before straightening the knee. Repeat using the other leg. Each leg should be stretched up to ten times for best effect. For continual, frequent cramps, seek medical advice. A doctor may prescribe a suitable muscle relaxant and can check there are no underlying problems causing the cramps. Legatrim might help. I would not recommend quinine due to heart conditions [facility] of Present illness Narrative* Doreen Le PA-C - 01/07/2023 8:40 AM EDT 77 year old female with c/o here for routine follow up. Worst problem currently are legs. Has to get up and walk around. Drinks tonic water with quinine. Pain is excruciating. Severe pain. Not every night. Pedro Aneurysm Neurosurgeon Dr. 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 No additional intracranial aneurysms identified. 12/07/2017 note: f/u MRA recommended 202012/02/2017 MRA brain WO/W: Endovascular coil mass involving the anterior communicating artery. No evidence of residual filling, aneurysm recurrence or coil impaction. Patent intracranial circulation. No evidence of aneurysm, occlusion, high-grade intracranial stenosis. 11/03/2017 F/U Dr. 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 (Ranjan 0) S/p placement of cardiac pacemaker (primary encounter diagnosis) Sss (sick sinus syndrome) (hcc) Chronic combined systolic and diastolic chf (congestive heart failure) (hcc) Dilated cardiomyopathy (hcc) Ascending aorta dilatation (hcc) H/o rheumatic heart disease History of prosthetic aortic valve replacement Paroxysmal atrial fibrillation (hcc) History of pulmonary embolism Presence of watchman left atrial appendage closure device Platelet inhibition due to plavix Primary hypertension Hyperlipidemia with target ldl less than 70 Cardiovascular interval hx: 12/29/2022 PRESENTING EGM: AP/VS BATTERY STATUS: Estimated time remaining to YUE is 11.8 yr. COUNTERS SINCE: 09/21/22 ATRIAL ARRHYTHMIAS: There have been several shorter AT/AFL detections at A rates 150-170 bpm, most only minutes one about an hour (burden <0.1%) Anticoagulants listed: Plavix and aspirin. VENTRICULAR ARRHYTHMIAS: There have been no ventricular detections. LEAD MEASUREMENTS: Sensing and capture are appropriate. Review of the lead impedance trends are normal. OTHER DIAGNOSTICS: RA pacing 79%. LBB-V pacing 6%. FOLLOW UP: Continue 3 month remote transmissions and yearly in-clinic interrogations. Ralph Hopkins RN 09/28/2022 f/u Dr. Joan Davidson. Ordered echo for follow up. 06/23/2022 pacemaker remote data: AF 45/3% burden, 1n VT, pacing 11.7% 03/19/2022 EKG: AF with RVR, VC's 03/19/2022 CT chest w/ IVCON PE: No CT evidence of pulmonary embolism. Nondiagnostic regions of segmental and subsegmental pulmonary arteries. Mediastinal and bilateral hilar adenopathy, possibly reactive. Clinical correlation and consideration to 3 month follow-up recommended 5-6 mm right lower lobe nodule. 3-6 month follow-up recommended. Trace left and small right pleural effusions 2.5 cm mass superior pole right kidney, concerning for neoplasm. Groundglass density anterior right lung, possible inflammation/infection Areas of mosaic attenuation, suggesting small airways/small vessels disease Dilated ascending aorta 4.5 cm. Biatrial enlargement. Findings of right heart dysfunction. Coronary artery calcifications 03/03/2022 echo: LV size WNL, LVSF moderately decreased , EF 38%-worse from prior RV size WNL. RVSF moderately-severely decreased.and worse from prior. RVSP 41mmHg. LA dilated with left atrial appendage no bilobed, Watchman device implanted, no thrombus, small leak.RA dilated. MV with 3+MR due to restricted leaf motion with regurgitant jet, moderate thickening, mild calcification. Peak /mean gradietn 16/8mmHg TV: 1-2+ TVr. AV: Cryolife prosthetic valve #28, 2-3+ AVr PV: tr PVr 11/26/2021 PVR: RIGHT GILDA 0.41, TBI 0.26; dx PAD LEFT: ABIi 0.63,TBI: 0.29 Bilateral ankle , moderate disease at rest. Aortic or iliofemoral disease. Right small vessel disease versus vasoconstriction. 03/22/2020 echo, Dr. Miller: LV mildly dilated, conc LVH, EF 60%, stage 2 diast dysf; RV size and RVSF NL; LA severely dilated, moderate 2-3+ MVR; prosthetic Cryolife valve: 2+ AVR with peak gradient 47/mmHg and mean 23mmHg up from . 03/24/2019 chest CTA 1. Small incompletely occluded PE 2nd and 3rd branch right upper lobe PA 2. extensive calcification aortic root with 4.5cm fusiform dilatation mid- ascending aorta 3. Atherosclerotic calcifications with ostial stenosis celiac trunk, SMA, bilateral renal arteries 4. Small dependent pleural effusions, larger on right, compressive atelectasis posterior lung bases.Bilateral small pleural effusions R>L. Additional: 3.95 x 2.85 x 1.1 cm right subcarinal node grossly increased in size 2.5 x 1.7 x 0.9cm right hilar node Ill defined density with scarring apical RUL unchanged. Subsegmental atelectasis bilateral lung bases, anteromedial AZUCENA. 5mm pleural density new 10/24/18 echo surveillance prosthetic valve (3yrs): LV severely dilated, mild concentric LVH, LVEF NL, EF = 56%. IndeterminateLVDD. RV size and RVSF NL. LA severely dilated, MR 2+, Cryolife prostheticaortic valve (size #28). AR 1-2+ w/ peak gradient 24 mmHg, mean gradient is 14 mmHg and the dimensionless valve index is 0.36. Comparison 11/19/2016, Moderate MR and AI has not progressed. 05/27/16 bilateral carotid US: moderate 50-69% stenosis right and left 1999: valve replacement, bioprosthetic, h/o rheumatic heart disease. Her valve has regurgitation and needs echo every year. Current meds: Losartan 50mg daily Metoprolol succinate ER twice a day Furosemide 20mg daily ASA 81mg daily Clopidogrel 75mg daily Simvastatin 20mg daily HS Use of NTG: No Chest pain, arm, jaw pain, neck, or upper back pain suggestive of angina: No. SOB: No Dyspnea with exertion: No orthopnea: No Cough : No racing or irregular heartbeats: No palpitations: No syncopal sx: No Headache: No Unexplainable fatigue gets tired but much better Leg swelling: No Nausea: No diaphoresis: none Heartburn: No Claudication: No Smoking: No Following Low cholesterol, high fiber diet? Yes If on statin: muscle aches? No If on statin: GI sx or diarrhea? No Additional history notes some tenderness anterior distal calf over varicosity. Lab review: Component Latest Ref Rng & Units 03/22/2022 04/06/2022 04/15/2022 05/14/2022 10/05/2022 WBC 3.70 - 11.00 k/uL 7.34 8.62 5.89 8.46 RBC 3.90 - 5.20 m/uL 3.75 (L) 3.91 4.15 4.63 Hemoglobin 11.5 - 15.5 g/dL 9.2 (L) 9.7 (L) 11.4 (L) 14.0 Hematocrit 36.0 - 46.0 % 31.3 (L) 32.4 (L) 36.5 42.4 MCV 80.0 - 100.0 fL 83.5 82.9 88.0 91.6 MCH 26.0 - 34.0 pg 24.5 (L) 24.8 (L) 27.5 30.2 MCHC 30.5 - 36.0 g/dL 29.4 (L) 29.9 (L) 31.2 33.0 RDW-CV 11.5 - 15.0 % 19.9 (H) 21.1 (H) 26.1 (H) 14.7 Platelet Count 150 - 400 k/uL 266 195 147 (L) 169 MPV 9.0 - 12.7 fL 9.8 9.3 9.1 10.1 Neut% % 56.4 58.8 53.4 50.6 Abs Neut (ANC) 1.45 - 7.50 k/uL 4.14 5.07 3.14 4.27 Lymph% % 27.9 25.8 30.7 33.3 Abs Lymph 1.00 - 4.00 k/uL 2.05 2.22 1.81 2.82 [place]ett% % 12.7 12.3 12.6 13.0 Abs [place] <0.87 k/uL 0.93 (H) 1.06 (H) 0.74 1.10 (H) Eosin% % 1.5 1.7 2.2 2.0 Abs Eosin <0.46 k/uL 0.11 0.15 0.13 0.17 Baso% % 1.1 0.9 0.8 0.9 Abs Baso <0.11 k/uL 0.08 0.08 0.05 0.08 Immature Gran % % 0.4 0.5 0.3 0.2 IMMATURE GRANS (ABS) <0.10 k/uL 0.03 0.04 <0.03 <0.03 NRBC /100 WBC 0.0 0.0 0.0 0.0 Absolute nRBC <0.01 k/uL <0.01 <0.01 <0.01 <0.01 DTYPE Auto Auto Auto Auto Protein, Total 6.3 - 8.0 g/dL 6.3 7.1 Albumin 3.9 - 4.9 g/dL 3.6 (L) 4.1 Calcium 8.5 - 10.2 mg/dL 9.4 9.5 Bilirubin, Total 0.2 - 1.3 mg/dL 0.6 0.7 Alkaline Phosphatase 34 - 123 U/L 99 106 AST 13 - 35 U/L 15 17 ALT 7 - 38 U/L 12 9 Glucose 74 - 99 mg/dL 127 (H) 149 (H) BUN 7 - 21 mg/dL 21 24 (H) Creatinine 0.58 - 0.96 mg/dL 1.21 (H) 1.09 (H) Sodium 136 - 144 mmol/L 138 138 Potassium 3.7 - 5.1 mmol/L 4.0 4.6 Chloride 97 - 105 mmol/L 101 99 CO2 22 - 30 mmol/L 24 28 Anion Gap 9 - 18 mmol/L 13 11 eGFR >=60 mL/min/1.73m 47 (L) 52 (L) Cholesterol, Total <200 mg/dL 138 Triglyceride <150 mg/dL 99 HDL Cholesterol >39 mg/dL 46 Non HDL Cholesterol <130 mg/dL 92 Fasting Time hrs 10 VLDL Cholesterol <30 mg/dL 20 TC:HDL Ratio <5.10 3.00 LDL Cholesterol <100 mg/dL 72 LDL:HDL Ratio <2.54 1.57 Lung nodule, solitary Has not scheduled chest CT follow up 03/19/[address] wIVCON PE: 5-6 mm right lower lobe nodule. 3-6 month follow- up recommended. Diabetes Mellitus Type 2: Current medications: none Taking medication as directed consistently? N/A Medication side effects: N/A Medical Issues / Complications: hypertension, hyperlipidemia, and cardiovascular disease Checking blood sugars at home? No. Watching diet? No Physical Activity: Sedentary Hypoglycemic spells? No Any visual disturbance? No Chest pain? No New numbness, tingling or loss of sensation? No Any recent foot problems, sores or rashes? No Any recent or sudden weight loss? No Change in urination? No. If yes: Any recent illness? No Last eye exam: up to date. Last foot exam: up to date. HBA1C: Hemoglobin A1C (%) Date Value 01/01/2023 7.7 03/20/2022 6.4 12/11/2020 7.0 07/12/2020 6.6 ) CMP: Glucose 149 10/05/2022 BUN 24 10/05/2022 Creatinine 1.09 10/05/2022 Sodium 138 10/05/2022 Potassium 4.6 10/05/2022 Chloride 99 10/05/2022 CO2 28 10/05/2022 Protein, Total 7.1 10/05/2022 Albumin 4.1 10/05/2022 Calcium 9.5 10/05/2022 Alkaline Phosphatase 106 10/05/2022 Bilirubin, Total 0.7 10/05/2022 AST 17 10/05/2022 ALT 9 10/05/2022 Last 2 Encounter Wt Readings: Date: Wt: 01/07/2023 65.8 kg (145 lb) 10/08/2022 67.6 kg (149 lb) Chronic renal failure, stage 3b (hcc) Renal mass, right 10/08/[address] Brayan Chicas IMPRESSION: PLAN: 2.5 cm right solid renal mass. Discussed options for further evaluation treatment including but not limited to right partial nephrectomy, cryoablation, RFA, observation and discontinuing testing. She states that she has multiple medical problems and is not interested in pursuing any further evaluation or treatment. I have asked her specifically if this lesion were to increase in size whether she would consider treatment at that time and she states that she would not. She would like to simply follow-up on an as-needed basis. I have elected to order renal ultrasound for her for next year in case she changes her mind. 10/05/2022 US kidney: Upper pole solid right renal mass is stable. This is consistent with neoplasm. Dedicated renal imaging may be helpful No hydronephrosis 03/19/2022 CT ABD/PEL wIVCON:Redemonstrated 2.5 cm mass in the superior pole of the right kidney 06/12/19 CTABD/PEL w/ IVCON: demonstrated persistent sigmoid wall thickening consistent with diverticulitis and small collection of fluid along the inferior aspect of the sigmoid colon probably residual abscess, less likely prominent diverticulum and also right upper pole renal mass suspicious for renal cell carcinoma which was not evident on prior CT of 2016 but which also was not identified and her recent CT scans which were done in [facility]. Gastroesophageal reflux disease without esophagitis Esophageal stenosis Diverticulitis large intestine w/o perforation or abscess w/o bleeding Iron malabsorption History of ischemic colitis Adenomatous polyp of descending colon Current medication: Omeprazole 40mg daily. Current symptoms: none. Last Mg level if on PPI chronically: 03/22/2022 2.1. Heartburn is controlled: No. Dysphagia: No but has to be cautious. Apple caught in throat. Bloody or black stools: No. Bowel changes: No. Last EGD and/or colonoscopy: no recommendations for surveillance given. 02/23/2022: Colonoscopy Dr. Bryaan Whitehead: Two 3 to 5 mm polyps in the ascending colon, removed with a cold snare. Resected and retrieved. Blood in the entire examined colon. Diverticulosis in the sigmoid colon and in the descending colon. Internal hemorrhoids. The examination was otherwise normal. FINAL DIAGNOSIS A. Colon, ascending polyps (x2), biopsy: -Tubular adenoma. -Fragments of sessile serrated polyp. 01/02/2022 EGD: Dr. Chai Encinas: Normal examined jejunum. Normal examined duodenum. Gastritis. Biopsied. Non-severe reflux esophagitis. Biopsied. FINAL DIAGNOSIS A. Stomach, antrum, biopsy: - Chronic active gastritis; see comment. B. Esophagus, lower, biopsy: - Squamous mucosa and slight chronically inflamed gastric mucosa; negative for intestinal metaplasia and dysplasia. 02/22/2022 CT abd/pel w IVCON Liver: Calcified granulomas. Subcentimeter hypodensity in the lateral segment of the left lobe of the liver is too small to characterize. Biliary: Normal gallbladder. No duct dilation. Spleen: Calcified splenic granulomas. Pancreas: No mass or ductal dilation. Adrenals: No mass. Kidneys: No enhancing mass or hydronephrosis. Redemonstrated 2.5 cm mass in the superior pole of the right kidney. GI tract: Small hiatal hernia. Surgical sutures around the sigmoid colon. Scattered colonic diverticula. No dilation or wall thickening. Appendix: Normal Lymph nodes: No lymphadenopathy. Mesentry/Peritoneum/Retroperitoneum: No ascites or mass. Vasculature: Marked calcified changes of the abdominal aorta without aneurysm. Chronic severe stenosis of the celiac, superior mesenteric artery, bilateral proximal superficial femoral arteries. Pelvis: The uterus is not visualized. No adnexal mass. Normal bladder. Soft Tissues: Left groin surgical clips. Bones: No acute findings. Grade 1 anterolisthesis L4 with respect to L5. Advanced degenerative changes of the lumbar spine. 02/07/2021 US RUQ Coarse hepatic echotexture. No hepatic mass. Gallbladder contains a small amount of sludge. HISTORIES FAMILY HISTORY Problem Relation Age of Onset other (Heart Problems) Mother other (myocardial infarction) Mother other (cardiovascular disease) Mother other (Heart Attack) Father other (cardiovascular disease) Father Diabetes Maternal Grandmother PAST MEDICAL HISTORY Diagnosis Date Abnormal colonoscopy [...] 06/01/16 Mitral valve regurgitation Pacemaker 10/21/[address] CAI SURESCAN [id number] pulse generator, his bundle lead, right atrial lead Peripheral arterial disease (HCC) Rheumatic fever Steatosis, liver 03/26/2014 fatty liver on US. 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 Lua PACEMAKER 10/2019 PART. HYSTERECTOMY W/WO RMVL OVARIES/TUBES 1974 h/o cervical cancer ovaries remain PAST SURGICAL HISTORY OF 1996 Aortic valve repair, Dr. Apodaca PAST SURGICAL HISTORY OF 2001 [address] Beltrán, [facility] PAST SURGICAL HISTORY OF 2015 clipping and coil for brain aneurysm Social History Tobacco Use Smoking status: Former Packs/day: 0.25 Years: 2.00 Pack years: 0.50 Types: Cigarettes Quit date: 1967 Years since quittin.5 Smokeless tobacco: Never Vaping Use Vaping Use: Never used Substance Use Topics Alcohol use: Not Currently Alcohol/week: 1.0 standard drink Types: 1 Glasses of Wine (5oz) per week Comment: red wine 2-3 times a week- occasional Drug use: No ACTIVE PROBLEM LIST History of Prosthetic Aortic Valve Replacement Aortic Prosthetic Valve Regurgitation Paroxysmal Atrial Fibrillation (Hcc) Htn (Hypertension) Hyperlipidemia With Target Ldl Less Than 70 Gerd (Gastroesophageal Reflux Disease) Chronic Anticoagulation Fatigue Sob (Shortness of Breath) H/O Rheumatic Heart Disease Basal Cell Carcinoma Left Shoulder Pain Bilateral Carotid Artery Stenosis Osteopenia of Left Lower Leg Mastoiditis of Right Side Chronic Mastoiditis of Left Side Personal History of Colonic Polyps History of Ischemic Colitis Adenomatous Polyp of Descending Colon Skin Cancer Pad (Peripheral Artery Disease) (Hcc) Pedro Aneurysm of Anterior Communicating Artery Stage 3 Chronic Renal Impairment Associated With Type 2 Diabetes Mellitus (Hcc) History of Pulmonary Embolism Ascending Aorta Dilatation (Hcc) Chronic Bilateral Pleural Effusions Colovesical Fistula Right Renal Mass Diverticulitis Large Intestine W/O Perforation Or Abscess W/O Bleeding Renal Cell Carcinoma, Right (Hcc) Iron Deficiency Anemia Hypomagnesemia Gastrointestinal Hemorrhage Associated With Acute Gastritis Esophageal Stenosis Dilated Cardiomyopathy (Hcc) Chronic Combined Systolic and Diastolic Chf (Congestive Heart Failure) (Hcc) Sss (Sick Sinus Syndrome) ([facility]) Duodenal Ulcer Type 2 Diabetes Mellitus With Diabetic Peripheral Angiopathy Without Gangrene, Without Long-Term Current Use of Insulin (Hcc) Atrial Fibrillation (Hcc) Longstanding Persistent Atrial Fibrillation (Hcc) S/P Placement of Cardiac Pacemaker Ckd (Chronic Kidney Disease) Platelet Inhibition Due to Plavix Diverticulosis Lung Nodule, Solitary Red Blood Cell Antibody Positive Iron Deficiency Anemia Secondary to Inadequate Dietary Iron Intake Iron Malabsorption Chronic Renal Failure, Stage 3b (Hcc) Spondylolisthesis At L4-L5 Level Current Outpatient Medications Medication Sig Dispense Refill furosemide (LASIX) 20 mg tablet Take 2 tablets by mouth once daily. 90 tablet 3 omeprazole (PRILOSEC) 40 mg capsule Take 1 capsule by mouth once daily. 90 capsule 1 Blood Pressure Monitor (BLOOD PRESSURE KIT) 1 Each once daily. 1 Each 0 losartan (COZAAR) 50 mg tablet Take 1 tablet by mouth once daily. 90 tablet 3 metoprolol succinate ER (TOPROL XL) 50 mg 24 hr tablet TAKE 1 TABLET BY MOUTH TWICE A DAY 60 [id number] clopidogrel (PLAVIX) 75 mg tablet Take 1 tablet by mouth once daily. Only for 6 months. After that stay on ASA 81 mg daily, 90 tablet 1 aspirin 81 mg chewable tablet Take 1 tablet by mouth once daily. 30 tablet 11 simvastatin (ZOCOR) 20 mg tablet Take 1 tablet by mouth daily at bedtime. 90 tablet 3 acetaminophen (TYLENOL) 500 mg tablet Take 1-2 tablets by mouth every 6 hours as needed. blood sugar diagnostic (BLOOD GLUCOSE TEST) test strip Test blood sugar(s) 2 times daily. Dx: Type 2 DM - Controlled E11.9 Insulin: No 50 Strip 11 UBIDECARENONE (COQ-10 ORAL) Take 1 capsule by mouth once daily. Current Facility-Administered Medications Medication Dose Route Frequency Provider Last Rate Last Admin perflutren lipid microspheres 1.3 mL in NaCl (PF) 0.9% 10 mL injection (DEFINITY) INTRAVENOUS DIRECTED PRN Carla Burdick MD sodium chloride 0.9 % (flush) 10 mL (BD POSIFLUSH) 10 mL INTRAVENOUS DIRECTED PRN Carla Burdick MD BP CONTROLLED (<130/80) Never done SHINGRIX VACCINE(2 of 2) due on 01/03/2019 COVID-19 VACCINE(4 - Booster for Pfizer series) due on 05/08/2021 DEPRESSION ASSESSMENT Never done URINE ALBUMIN:CREATININE RATIO due on 12/16/2022 EXAM: BP 136/72 Pulse 70 Resp 16 Wt 65.8 kg (145 lb) SpO2 96% BMI 26.95 kg/m Pleasant Well appearing adult woman in no acute distress, seems to be doing well. Alert and oriented all spheres. Normal affect and cognition. Speech normal. No deficits to learning or comprehension. Skin warm, dry, pink to lips and nailbeds. Normal turgor. Respirations regular and unlabored. HEENT: NCAT. No scleral icterus or conjunctival injection. TM's clear. Nose and oropharynx free from injection or lesion. Oral membranes moist and pink. No cervical lymph nodes. Thyroid non-tender, no masses, or enlargement. Carotids pulses 2+/4+ without bruits. No JVD with HOB at 30 degrees. Chest is normal shape. Lungs are clear to all rosas with good air exchange through out. Heart intermittently irregular with wheezing murmur Erb's point. No over gallop. Extrem: no clubbing or cyanosis. Edema: none. Extremities are warm and pink with prompt capillary refill. 1/4+ DPP, PTP. Toes warm, pink, somewhat sluggish cap refill at 3 count. ASSESSMENT/PLAN: 1. Bilateral carotid artery stenosis - ICD9: 433.10, 433.30, ICD10: I65.23 (primary diagnosis) Due for follow up - US CAROTID ARTERIES [facility] 2. Atherosclerosis of [place] artery of both lower extremities with intermittent claudication (HCC) - ICD9: 440.21, ICD10: I70.213 Pain and cramping in legs alleviated by rest, mesenteric artery obstructions: need to assess. - PVR ANK PRESS [facility] - PVR LEG [facility] 3. 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HCC) - ICD9: 557.0, ICD10: K55.069 - PVR ANK PRESS [facility] - PVR LEG [facility] 4. Pain in both lower legs - ICD9: 729.5, ICD10: M79.661, M79.662 - PVR ANK PRESS [facility] - PVR LEG [facility] 5. Iron 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 - ICD9: 280.1, ICD10: D50.8 Resolved with resolution clotting issues and blood loss/ - ALBUMIN/CREAT RATIO RND UR - HGB A1C [facility] NoteHNO ID: [id number] Author: RT Pranav(R) Service: Radiology Author Type: Technologist Type: Progress Notes Filed: 12/10/2022 1:06 PM Note Text: Radiology Service Progress Note PATIENT NAME: Berta Sanches DATE OF SERVICE: December 10, 2022 TIME: 1:06 PM PATIENT IDENTITY VERIFICATION COMPLETED USING TWO (2) IDENTIFIERS: Name and Date of confirmed by patient verbally and Name and Date of confirmed by identification band. FALL SCREENING: Has the patient had 2 falls in the last year or 1 fall with injury or currently using an Ambulatory Assistive Device (Walker, Cane, Wheelchair, Crutches, etc.)? No PATIENT GENDER DATA: Female. status: : No status: NO. PATIENT RELEVANT IMPLANT DATA REVIEWED: Yes RADIOLOGY DEPARTMENT: MR; Exam(s) Completed: Head: Post Coil PERIPHERAL IV DATA: Site assessment: Clean,Dry and Intact, Site disposition Discontinued SIGNED BY: RT Pranav(R) December 10, 2022 1:06 [facility]04-04-2023 History of Present illness Narrative* Doreen Le PA-C - 10/06/2022 9:00 AM EDT 77 year old female with c/o here for follow up Pedro Aneurysm Neurosurgeon Dr. Dianne Rogers, Susan Mtz SIGN BOARD ERECTOR 12/07/2017 note: f/u MRA recommended 202012/02/2017 MRA brain WO/W: Endovascular coil mass involving the anterior communicating artery. No evidence of residual filling, aneurysm recurrence or coil impaction. Patent intracranial circulation. No evidence of aneurysm, occlusion, high-grade intracranial stenosis. 11/03/2017 F/U Dr. 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 (Ranjan 0) S/p placement of cardiac pacemaker (primary encounter diagnosis) Sss (sick sinus syndrome) ([facility]) Chronic combined systolic and diastolic chf (congestive heart failure) (hcc) Dilated cardiomyopathy (hcc) Ascending aorta dilatation (hcc) H/o rheumatic heart disease History of prosthetic aortic valve replacement Paroxysmal atrial fibrillation (hcc) Presence of watchman left atrial appendage closure device Platelet inhibition due to plavix Primary hypertension Hyperlipidemia with target ldl less than 70 Cardiovascular interval hx: 09/28/2022 f/u Dr. Joan Davidson. Ordered echo for follow up. 06/23/2022 pacemaker remote data: AF 45/3% burden, 1n VT, pacing 11.7% 03/19/2022 EKG: AF with RVR, VC's 03/19/2022 CT chest w/ IVCON PE: No CT evidence of pulmonary embolism. Nondiagnostic regions of segmental and subsegmental pulmonary arteries. Mediastinal and bilateral hilar adenopathy, possibly reactive. Clinical correlation and consideration to 3 month follow-up recommended 5-6 mm right lower lobe nodule. 3-6 month follow-up recommended. Trace left and small right pleural effusions 2.5 cm mass superior pole right kidney, concerning for neoplasm. Groundglass density anterior right lung, possible inflammation/infection Areas of mosaic attenuation, suggesting small airways/small vessels disease Dilated ascending aorta 4.5 cm. Biatrial enlargement. Findings of right heart dysfunction. Coronary artery calcifications 03/03/2022 echo: LV size WNL, LVSF moderately decreased , EF 38%-worse from prior RV size WNL. RVSF moderately-severely decreased.and worse from prior. RVSP 41mmHg. LA dilated with left atrial appendage no bilobed, Watchman device implanted, no thrombus, small leak.RA dilated. MV with 3+MR due to restricted leaf motion with regurgitant jet, moderate thickening, mild calcification. Peak /mean gradietn 16/8mmHg TV: 1-2+ TVr. AV: Cryolife prosthetic valve #28, 2-3+ AVr PV: tr PVr 11/26/2021 PVR: RIGHT GILDA 0.41, TBI 0.26; dx PAD LEFT: ABIi 0.63,TBI: 0.29 Bilateral ankle , moderate disease at rest. Aortic or iliofemoral disease. Right small vessel disease versus vasoconstriction. 03/22/2020 echo, Dr. Miller: LV mildly dilated, conc LVH, EF 60%, stage 2 diast dysf; RV size and RVSF NL; LA severely dilated, moderate 2-3+ MVR; prosthetic Cryolife valve: 2+ AVR with peak gradient 47/mmHg and mean 23mmHg up from . 03/24/2019 chest CTA 1. Small incompletely occluded PE 2nd and 3rd branch right upper lobe PA 2. extensive calcification aortic root with 4.5cm fusiform dilatation mid- ascending aorta 3. Atherosclerotic calcifications with ostial stenosis celiac trunk, SMA, bilateral renal arteries 4. Small dependent pleural effusions, larger on right, compressive atelectasis posterior lung bases.Bilateral small pleural effusions R>L. Additional: 3.95 x 2.85 x 1.1 cm right subcarinal node grossly increased in size 2.5 x 1.7 x 0.9cm right hilar node Ill defined density with scarring apical RUL unchanged. Subsegmental atelectasis bilateral lung bases, anteromedial AZUCENA. 5mm pleural density new 10/24/18 echo surveillance prosthetic valve (3yrs): LV severely dilated, mild concentric LVH, LVEF NL, EF = 56%. IndeterminateLVDD. RV size and RVSF NL. LA severely dilated, MR 2+, Cryolife prostheticaortic valve (size #28). AR 1-2+ w/ peak gradient 24 mmHg, mean gradient is 14 mmHg and the dimensionless valve index is 0.36. Comparison 11/19/2016, Moderate MR and AI has not progressed. 05/27/16 bilateral carotid US: moderate 50-69% stenosis right and left 2000: valve replacement, bioprosthetic, h/o rheumatic heart disease. Her valve has regurgitation and needs echo every year. Current meds: Losartan 50mg daily Metoprolol succinate ER twice a day Furosemide 20mg daily ASA 81mg daily Clopidogrel 75mg daily Simvastatin 20mg daily HS Use of NTG: No Chest pain, arm, jaw pain, neck, or upper back pain suggestive of angina: No. SOB: No Dyspnea with exertion: No orthopnea: No Cough : No racing or irregular heartbeats: No palpitations: No syncopal sx: No Headache: No Unexplainable fatigue gets tired but much better Leg swelling: No Nausea: No diaphoresis: none Heartburn: No Claudication: No Smoking: No Following Low cholesterol, high fiber diet? Yes If on statin: muscle aches? No If on statin: GI sx or diarrhea? No Additional history notes some tenderness anterior distal calf over varicosity. Lab review: Component Latest Ref Rng & Units 03/22/2022 04/06/2022 04/15/2022 05/14/2022 10/05/2022 WBC 3.70 - 11.00 k/uL 7.34 8.62 5.89 8.46 RBC 3.90 - 5.20 m/uL 3.75 (L) 3.91 4.15 4.63 Hemoglobin 11.5 - 15.5 g/dL 9.2 (L) 9.7 (L) 11.4 (L) 14.0 Hematocrit 36.0 - 46.0 % 31.3 (L) 32.4 (L) 36.5 42.4 MCV 80.0 - 100.0 fL 83.5 82.9 88.0 91.6 MCH 26.0 - 34.0 pg 24.5 (L) 24.8 (L) 27.5 30.2 MCHC 30.5 - 36.0 g/dL 29.4 (L) 29.9 (L) 31.2 33.0 RDW-CV 11.5 - 15.0 % 19.9 (H) 21.1 (H) 26.1 (H) 14.7 Platelet Count 150 - 400 k/uL 266 195 147 (L) 169 MPV 9.0 - 12.7 fL 9.8 9.3 9.1 10.1 Neut% % 56.4 58.8 53.4 50.6 Abs Neut (ANC) 1.45 - 7.50 k/uL 4.14 5.07 3.14 4.27 Lymph% % 27.9 25.8 30.7 33.3 Abs Lymph 1.00 - 4.00 k/uL 2.05 2.22 1.81 2.82 [place]% % 12.7 12.3 12.6 13.0 Abs [place] <0.87 k/uL 0.93 (H) 1.06 (H) 0.74 1.10 (H) Eosin% % 1.5 1.7 2.2 2.0 Abs Eosin <0.46 k/uL 0.11 0.15 0.13 0.17 Baso% % 1.1 0.9 0.8 0.9 Abs Baso <0.11 k/uL 0.08 0.08 0.05 0.08 Immature Gran % % 0.4 0.5 0.3 0.2 IMMATURE GRANS (ABS) <0.10 k/uL 0.03 0.04 <0.03 <0.03 NRBC /100 WBC 0.0 0.0 0.0 0.0 Absolute nRBC <0.01 k/uL <0.01 <0.01 <0.01 <0.01 DTYPE Auto Auto Auto Auto Protein, Total 6.3 - 8.0 g/dL 6.3 7.1 Albumin 3.9 - 4.9 g/dL 3.6 (L) 4.1 Calcium 8.5 - 10.2 mg/dL 9.4 9.5 Bilirubin, Total 0.2 - 1.3 mg/dL 0.6 0.7 Alkaline Phosphatase 34 - 123 U/L 99 106 AST 13 - 35 U/L 15 17 ALT 7 - 38 U/L 12 9 Glucose 74 - 99 mg/dL 127 (H) 149 (H) BUN 7 - 21 mg/dL 21 24 (H) Creatinine 0.58 - 0.96 mg/dL 1.21 (H) 1.09 (H) Sodium 136 - 144 mmol/L 138 138 Potassium 3.7 - 5.1 mmol/L 4.0 4.6 Chloride 97 - 105 mmol/L 101 99 CO2 22 - 30 mmol/L 24 28 Anion Gap 9 - 18 mmol/L 13 11 eGFR >=60 mL/min/1.73m 47 (L) 52 (L) Cholesterol, Total <200 mg/dL 138 Triglyceride <150 mg/dL 99 HDL Cholesterol >39 mg/dL 46 Non HDL Cholesterol <130 mg/dL 92 Fasting Time hrs 10 VLDL Cholesterol <30 mg/dL 20 TC:HDL Ratio <5.10 3.00 LDL Cholesterol <100 mg/dL 72 LDL:HDL Ratio <2.54 1.57 History of pulmonary embolism Lung nodule, solitary 03/19/[address] wIVCON PE: 5-6 mm right lower lobe nodule. 3-6 month follow- up recommended. Chronic renal failure, stage 3b (hcc) Renal mass, right 10/05/2022 US kidney: pending 03/19/2022 CT ABD/PEL wIVCON:Redemonstrated 2.5 cm mass in the superior pole of the right kidney 06/12/19 CTABD/PEL w/ IVCON: demonstrated persistent sigmoid wall thickening consistent with diverticulitis and small collection of fluid along the inferior aspect of the sigmoid colon probably residual abscess, less likely prominent diverticulum and also right upper pole renal mass suspicious for renal cell carcinoma which was not evident on prior CT of 2016 but which also was not identified and her recent CT scans which were done in [facility]. Gastroesophageal reflux disease without esophagitis Esophageal stenosis Diverticulitis large intestine w/o perforation or abscess w/o bleeding Iron malabsorption History of ischemic colitis Adenomatous polyp of descending colon Current medication: Omeprazole 40mg daily. Current symptoms: none. Last Mg level if on PPI chronically: due. Heartburn is controlled: No. Dysphagia: No but has to be cautious. Apple caught in throat. Bloody or black stools: No. Bowel changes: No. Last EGD and/or colonoscopy: no recommendations for surveillance given. 02/23/2022: Colonoscopy Dr. Brayan Whitehead: Two 3 to 5 mm polyps in the ascending colon, removed with a cold snare. Resected and retrieved. Blood in the entire examined colon. Diverticulosis in the sigmoid colon and in the descending colon. Internal hemorrhoids. The examination was otherwise normal. FINAL DIAGNOSIS A. Colon, ascending polyps (x2), biopsy: -Tubular adenoma. -Fragments of sessile serrated polyp. 01/02/2022 EGD: Dr. Chai Encinas: Normal examined jejunum. Normal examined duodenum. Gastritis. Biopsied. Non-severe reflux esophagitis. Biopsied. FINAL DIAGNOSIS A. Stomach, antrum, biopsy: - Chronic active gastritis; see comment. B. Esophagus, lower, biopsy: - Squamous mucosa and slight chronically inflamed gastric mucosa; negative for intestinal metaplasia and dysplasia. 02/22/2022 CT abd/pel w IVCON Liver: Calcified granulomas. Subcentimeter hypodensity in the lateral segment of the left lobe of the liver is too small to characterize. Biliary: Normal gallbladder. No duct dilation. Spleen: Calcified splenic granulomas. Pancreas: No mass or ductal dilation. Adrenals: No mass. Kidneys: No enhancing mass or hydronephrosis. GI tract: Small hiatal hernia. Surgical sutures around the sigmoid colon. Scattered colonic diverticula. No dilation or wall thickening. Appendix: Normal Lymph nodes: No lymphadenopathy. Mesentry/Peritoneum/Retroperitoneum: No ascites or mass. Vasculature: Marked calcified changes of the abdominal aorta without aneurysm. Chronic severe stenosis of the celiac, superior mesenteric artery, bilateral proximal superficial femoral arteries. Pelvis: The uterus is not visualized. No adnexal mass. Normal bladder. Soft Tissues: Left groin surgical clips. Bones: No acute findings. Grade 1 anterolisthesis L4 with respect to L5. Advanced degenerative changes of the lumbar spine. 02/07/2021 US RUQ Coarse hepatic echotexture. No hepatic mass. Gallbladder contains a small amount of sludge. Diabetes Mellitus Type 2: Current medications: none Taking medication as directed consistently? N/A Medication side effects: N/A Medical Issues / Complications: hypertension, hyperlipidemia, and cardiovascular disease Checking blood sugars at home? No. Watching diet? No Physical Activity: Sedentary Hypoglycemic spells? No Any visual disturbance? No Chest pain? No New numbness, tingling or loss of sensation? No Any recent foot problems, sores or rashes? No Any recent or sudden weight loss? No Change in urination? No. If yes: Any recent illness? No Last eye exam: up to date. Last foot exam: up to date. HBA1C: Hemoglobin A1C (%) Date Value 03/20/2022 6.4 12/15/2021 7.1 12/11/2020 7.0 07/12/2020 6.6 ) CMP: Glucose 149 10/05/2022 BUN 24 10/05/2022 Creatinine 1.09 10/05/2022 Sodium 138 10/05/2022 Potassium 4.6 10/05/2022 Chloride 99 10/05/2022 CO2 28 10/05/2022 Protein, Total 7.1 10/05/2022 Albumin 4.1 10/05/2022 Calcium 9.5 10/05/2022 Alkaline Phosphatase 106 10/05/2022 Bilirubin, Total 0.7 10/05/2022 AST 17 10/05/2022 ALT 9 10/05/2022 Last 2 Encounter Wt Readings: Date: Wt: 10/06/2022 66.2 kg (146 lb) 09/28/2022 68.4 kg (150 lb 12.8 oz) HISTORIES FAMILY HISTORY Problem Relation Age of Onset other (Heart Problems) Mother other (myocardial infarction) Mother other (cardiovascular disease) Mother other (Heart Attack) Father other (cardiovascular disease) Father Diabetes Maternal Grandmother PAST MEDICAL HISTORY Diagnosis Date Abnormal colonoscopy [...] 06/01/16 Mitral valve regurgitation Pacemaker 10/21/[address] TRELL VERNON [id number] pulse generator, his bundle lead, right atrial lead Peripheral arterial disease (HCC) Rheumatic fever Steatosis, liver 03/26/2014 fatty liver on US. 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 Lua PACEMAKER 10/2019 PART. HYSTERECTOMY W/WO RMVL OVARIES/TUBES 1974 h/o cervical cancer ovaries remain PAST SURGICAL HISTORY OF 1996 Aortic valve repair, Dr. Apodaca PAST SURGICAL HISTORY OF 2001 [address] Beltrán, [facility] PAST SURGICAL HISTORY OF 2016 clipping and coil for brain aneurysm Social History Tobacco Use Smoking status: Former Packs/day: 0.25 Years: 2.00 Pack years: 0.50 Types: Cigarettes Quit date: 1968 Years since quittin.2 Smokeless tobacco: Never Vaping Use Vaping Use: Never used Substance Use Topics Alcohol use: Not Currently Alcohol/week: 1.0 standard drink Types: 1 Glasses of Wine (5oz) per week Comment: red wine 2-3 times a week- occasional Drug use: No ACTIVE PROBLEM LIST History of Prosthetic Aortic Valve Replacement Aortic Prosthetic Valve Regurgitation Paroxysmal Atrial Fibrillation (Hcc) Htn (Hypertension) Hyperlipidemia With Target Ldl Less Than 70 Gerd (Gastroesophageal Reflux Disease) Chronic Anticoagulation Fatigue Sob (Shortness of Breath) H/O Rheumatic Heart Disease Basal Cell Carcinoma Left Shoulder Pain Intracranial Aneurysm Bilateral Carotid Artery Stenosis Osteopenia of Left Lower Leg Mastoiditis of Right Side Chronic Mastoiditis of Left Side Personal History of Colonic Polyps History of Ischemic Colitis Adenomatous Polyp of Descending Colon Skin Cancer Pad (Peripheral Artery Disease) ([facility]) Pedro Aneurysm of Anterior Communicating Artery Stage 3 Chronic Renal Impairment Associated With Type 2 Diabetes Mellitus ([facility]) History of Pulmonary Embolism Ascending Aorta Dilatation ([facility]) Chronic Bilateral Pleural Effusions Colovesical Fistula Right Renal Mass Diverticulitis Large Intestine W/O Perforation Or Abscess W/O Bleeding Renal Cell Carcinoma, Right ([facility]) Iron Deficiency Anemia Hypomagnesemia Gastrointestinal Hemorrhage Associated With Acute Gastritis Esophageal Stenosis Dilated Cardiomyopathy ([facility]) Chronic Combined Systolic and Diastolic Chf (Congestive Heart Failure) ([facility]) Sss (Sick Sinus Syndrome) ([facility]) Duodenal Ulcer Type 2 Diabetes Mellitus With Diabetic Peripheral Angiopathy Without Gangrene, Without Long-Term Current Use of Insulin (Hcc) Longstanding Persistent Atrial Fibrillation ([facility]) S/P Placement of Cardiac Pacemaker Ckd (Chronic Kidney Disease) Platelet Inhibition Due to Plavix Diverticulosis Lung Nodule, Solitary Red Blood Cell Antibody Positive Iron Deficiency Anemia Secondary to Inadequate Dietary Iron Intake Iron Malabsorption Chronic Renal Failure, Stage 3b (Hcc) Spondylolisthesis At L4-L5 Level Current Outpatient Medications Medication Sig Dispense Refill furosemide (LASIX) 20 mg tablet Take 2 tablets by mouth once daily. 90 tablet 3 omeprazole (PRILOSEC) 40 mg capsule Take 1 capsule by mouth once daily. 90 capsule 1 Blood Pressure Monitor (BLOOD PRESSURE KIT) 1 Each once daily. 1 Each 0 losartan (COZAAR) 50 mg tablet Take 1 tablet by mouth once daily. 90 tablet 3 metoprolol succinate ER (TOPROL XL) 50 mg 24 hr tablet TAKE 1 TABLET BY MOUTH TWICE A DAY 60 andaud36 clopidogrel (PLAVIX) 75 mg tablet Take 1 tablet by mouth once daily. Only for 6 months. After that stay on ASA 81 mg daily, 90 tablet 1 aspirin 81 mg chewable tablet Take 1 tablet by mouth once daily. 30 tablet 11 simvastatin (ZOCOR) 20 mg tablet Take 1 tablet by mouth daily at bedtime. 90 tablet 3 acetaminophen (TYLENOL) 500 mg tablet Take 1-2 tablets by mouth every 6 hours as needed. blood sugar diagnostic (BLOOD GLUCOSE TEST) test strip Test blood sugar(s) 2 times daily. Dx: Type 2 DM - Controlled E11.9 Insulin: No 50 Strip 11 UBIDECARENONE (COQ-10 ORAL) Take 1 capsule by mouth once daily. Current Facility-Administered Medications Medication Dose Route Frequency Provider Last Rate Last Admin perflutren lipid microspheres 1.3 mL in NaCl (PF) 0.9% 10 mL injection (DEFINITY) INTRAVENOUS DIRECTED PRN Carla Burdick MD sodium chloride 0.9 % (flush) 10 mL (BD POSIFLUSH) 10 mL INTRAVENOUS DIRECTED PRN Carla Burdick MD SHINGRIX VACCINE(2 of 2) due on 01/03/2019 COVID-19 VACCINE(4 - Booster for Pfizer series) due on 05/08/2021 DEPRESSION ASSESSMENT Never done HBA1C due on 09/17/2022 EXAM: BP 144/68 Pulse 81 Resp 18 Wt 66.2 kg (146 lb) SpO2 96% BMI 27.14 kg/m Pleasant adult woman of markedly improved appearance over last several months. in no acute distress. Alert and oriented all spheres. Normal affect and cognition. Speech normal. No deficits to learning or comprehension. Skin warm, dry, pink to lips and nailbeds. Normal turgor. Respirations regular and unlabored. HEENT: NCAT. No scleral icterus or conjunctival injection. TM's clear. Nose and oropharynx free from injection or lesion. Oral membranes moist and pink. No cervical lymph nodes. Thyroid non-tender, no masses, or enlargement. Carotids pulses 2+/4+ without bruits. No JVD with HOB at 30 degrees. Chest is normal shape. Lungs are clear to all rosas with good air exchange through out. HRRR without murmur or gallop. No lifts, heaves, or rubs. Abdomen: active bowel sounds throughout, soft, nontender, no masses or organomegaly. No CVAT. Extrem: no clubbing or cyanosis. Edema: 1/4_ bilateral lower legs. . Extremities are warm and pink with prompt capillary refill. ASSESSMENT/PLAN: 1. S/P placement of cardiac pacemaker - ICD9: V45.01, ICD10: Z95.0 (primary diagnosis) 2. SSS (sick sinus syndrome) ([facility]) - ICD9: 427.81, ICD10: I49.5 3. Chronic combined systolic and diastolic CHF (congestive heart failure) ([facility]) - ICD9: 428.42, 428.0, ICD10: I50.42 4. Dilated cardiomyopathy ([facility]) - ICD9: 425.4, ICD10: I42.0 5. Ascending aorta dilatation ([facility]) - ICD9: 447.71, ICD10: I77.810 6. H/O rheumatic heart disease - ICD9: V12.59, ICD10: Z86.79 7. History of prosthetic aortic valve replacement - ICD9: V43.3, ICD10: Z95.2 8. Paroxysmal atrial fibrillation ([facility]) - ICD9: 427.31, ICD10: I48.0 9. Presence of Watchman left atrial appendage closure device - ICD9: V45.09, ICD10: Z95.818 Follows with cardiology. Continue meds. Stable Echo scheduled. 10. Platelet inhibition due to Plavix - ICD9: V58.63, ICD10: Z79.02 CBC WNL Continue medication 11. Primary hypertension - ICD9: 401.9, ICD10: I10 - good control - Continue current medication(s) - Recommended regular aerobic exercise. - Recommend home blood pressure monitoring, to bring results in on next visit - Goal of BP <130/80 - CBC + DIFF - COMP METABOLIC PANEL 12. Hyperlipidemia with target LDL less than 70 - ICD9: 272.4, ICD10: E78.5 - good control - Encouraged following a low fat, low cholesterol diet. - Encouraged following a low carbohydrate, healthy oil intake diet. - COMP METABOLIC PANEL - LIPID PANEL BASIC 13. History of pulmonary embolism - ICD9: V12.55, ICD10: Z86.711 Stable 14. Lung nodule, solitary - ICD9: 793.11, ICD10: R91.[address] chest follow up today on 15. Chronic renal failure, stage 3b (HCC) - ICD9: 585.3, ICD10: N18.32 - eGFR: Stable - Counseled on avoiding regular use of NSAIDs, adequate hydration, potential risk of IV dye - CBC + DIFF - COMP METABOLIC PANEL 16. Gastroesophageal reflux disease without esophagitis - ICD9: 530.81, ICD10: K21.9 - Discussed lifestyle modifications including limiting caffeine, no meals three hours before sleep,and head of bed elevation - CBC + DIFF - COMP METABOLIC PANEL 17. Esophageal stenosis - ICD9: 530.3, ICD10: K22.2 Rare issues 18. Diverticulitis large intestine w/o perforation or abscess w/o bleeding - ICD9: 562.11, ICD10: K57.32 Stable currently, good bowel regimen 19. Iron malabsorption - ICD9: 579.8, ICD10: K90.9 Recheck levels. 20. History of ischemic colitis - ICD9: V12.79, ICD10: Z87.19 No current sx 21. Adenomatous polyp of descending colon - ICD9: 211.3, ICD10: D12.4 Up to date on screening 22. Pedro aneurysm of anterior communicating artery - ICD9: 430, ICD10: I67.1 Schedule outstanding MRA today before leaving 23. Bilateral carotid artery stenosis - ICD9: 433.10, 433.30, ICD10: I65.23 stable 24. Type 2 diabetes mellitus with diabetic peripheral angiopathy without gangrene, without long-term current use of insulin (HCC) - ICD9: 250.70, 443.81, ICD10: E11.51 - Controlled - Continue current medications - HGB A1C - COMP METABOLIC PANEL Doreen Le PA-C documented [facility] this [facility] History of Present illness Narrative* Erin Lauren RDMS - 10/05/2022 8:30 AM EDT Radiology Service Progress Note PATIENT NAME: Berta Sanches DATE OF SERVICE: October 05, 2022 TIME: 9:36 AM PATIENT IDENTITY VERIFICATION COMPLETED USING TWO (2) IDENTIFIERS: Name and Date of confirmedby patient verbally. FALL SCREENING: Has the patient had 2 falls in the last year or 1 fall with injury or currently using an Ambulatory Assistive Device (Walker, Cane, Wheelchair, Crutches, etc.)? No PATIENT GENDER DATA: Female. status: : No status: NO. PATIENT RELEVANT IMPLANT DATA REVIEWED: Not Applicable RADIOLOGY DEPARTMENT: Ultrasound PERIPHERAL IV DATA: Not applicable SIGNED BY: Erin Lauren RDMS October 05, 2022 9:36 AM documented in this encounterLake[facility]04-03-2023 Miscellaneous Notes* Result Encounter Note - Brayan Chicas MD - 10/05/2022 8:30 AM EDT Here are the test results.Keep follow up appointment to discuss the results. documented in this [facility] [place]03-28-2023 Miscellaneous Notes* Telephone Encounter - Rachele Bee LPN - 09/29/2022 12:06 PM EDT Patient no longer followed by Dr. Lund. Rachele Bee LPN documented in this encounterL[facility]03-27-2023 Instructions* Patient Instructions* Carla Burdick MD - 09/28/2022 9:30 AM EDT We will repeat an echocardiogram in March Repeat fasting blood work documented in this [facility] [place]03-27-2023 History of Present illness Narrative* Carla Burdick MD - 09/28/2022 9:00 AM EDT Images from the original note were not included. [facility] SECTION OF REGIONAL CARDIOLOGY Cardiology ([facility]) [address] [facility] [id number] OUTPATIENT VISIT DATE 09/28/2022 PRIMARY CARE PHYSICIAN: Doreen Le [address] [place] [address] HISTORY OF PRESENT ILLNESS: Ms. Sanches is a 77 year old woman with a history of remote aortic valve replacement with homograft in 1996 and possible repair of the ascending aorta, chronic diastolic congestive heart failure, hypertension, dyslipidemia, atrial fibrillation with history of pulmonary vein isolation procedures, pacemaker placement and watchman procedure who presents for follow-up. Since her last visit, she has been doing about the same. Functional capacity is limited by arthritis. She has not had symptoms of chest pain or pressure. She denies shortness of breath or dyspnea on exertion. She has not had symptoms concerning for CHF including PND, orthopnea, or lower extremity edema. PAST MEDICAL HISTORY Diagnosis Date Abnormal colonoscopy [...] 06/01/16 Mitral valve regurgitation Pacemaker 10/21/[address] TRELL VERNON [id number] pulse generator, his bundle lead, right atrial lead Peripheral arterial disease (HCC) Rheumatic fever Steatosis, liver 03/26/2014 fatty liver on US. 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 Lua PACEMAKER 10/2019 PART. HYSTERECTOMY W/WO RMVL OVARIES/TUBES 1974 h/o cervical cancer ovaries remain PAST SURGICAL HISTORY OF 1996 Aortic valve repair, Dr. Apodaca PAST SURGICAL HISTORY OF 2001 [address] Beltrán, [facility] PAST SURGICAL HISTORY OF 2015 clipping and coil for brain aneurysm SOCIAL HISTORY Social History Tobacco Use Smoking status: Former Packs/day: 0.25 Years: 2.00 Pack years: 0.50 Types: Cigarettes Quit date: 1967 Years since quittin.2 Smokeless tobacco: Never Vaping Use Vaping Use: Never used Substance Use Topics Alcohol use: Not Currently Alcohol/week: 1.0 standard drink Types: 1 Glasses of Wine (5oz) per [...] and 10 mg dexamethasone with good response. MEDICATIONS: omeprazole (PRILOSEC) 40 mg capsule Take 1 capsule by mouth once daily. Blood Pressure Monitor (BLOOD PRESSURE KIT) 1 Each once daily. losartan (COZAAR) 50 mg tablet Take 1 tablet by mouth once daily. metoprolol succinate ER (TOPROL XL) 50 mg 24 hr tablet TAKE 1 TABLET BY MOUTH TWICE A DAY furosemide (LASIX) 20 mg tablet Take 2 tablets by mouth once daily. aspirin 81 mg chewable tablet Take 1 tablet by mouth once daily. simvastatin (ZOCOR) 20 mg tablet Take 1 tablet by mouth daily at bedtime. acetaminophen (TYLENOL) 500 mg tablet Take 1-2 tablets by mouth every 6 hours as needed. blood sugar diagnostic (BLOOD GLUCOSE TEST) test strip Test blood sugar(s) 2 times daily. Dx: Type 2 DM - Controlled E11.9 Insulin: No UBIDECARENONE (COQ-10 ORAL) Take 1 capsule by mouth once daily. clopidogrel (PLAVIX) 75 mg tablet Take 1 tablet by mouth once daily. Only for 6 months. After that stay on ASA 81 mg daily, REVIEW OF SYSTEMS: Review of Systems Constitutional: [...] Psychiatric/Behavioral: Negative for depression. PHYSICAL EXAMINATION: BP 128/74 Pulse 78 Ht 156.2 cm (5' 1.5") Wt 68.4 kg (150 lb 12.8 oz) BMI 28.03 kg/m General: Very pleasant woman sitting appears comfortable [...] right upper sternal border. Extremities: Warm, well-perfused, 1+ pretibial pitting edema left lower extremity. Minimal edema onthe right. Dorsalis pedis and posterior tibial pulses are 2+ and symmetric. CARDIOVASCULAR MEDICINE TESTING: Transesophageal Echo 03/03/2022: - Exam indication: 45d Watchman follow-up - The left ventricle is normal in size. Left ventricular systolic function is moderately decreased. EF = 38 5% (visual est.) - The right ventricle is normal in size. Right ventricular systolic function is moderately to severely decreased. - The left atrial cavity is dilated. Small Watchman violet-device leak measuring 2mm (clip 14). - The [...] systolic function is normal. EF = 58 5% (2D biplane) Indeterminate left ventricular diastolic dysfunction due to mitral valve surgery. - The right ventricle is normal in size. Right ventricular systolic function is low normal. - The left atrial cavity is severely dilated. - There is moderate (2+) mitral valve regurgitation. Regurgitant orifice area (PISA) is 0.15 cm . - Cryolife prosthetic aortic valve (size #28). [...] There is mild concentric left ventricular hypertrophy. Leftventricular systolic function is normal. EF = 60 5% (2D biplane) Grade II left ventricular diastolic dysfunction. - The right ventricle is normal in size. Right ventricular systolic function is normal. - The left atrial cavity is severely dilated. - There is moderate (2+ - 3+) mitral valve regurgitation. Regurgitant orifice area (PISA) is 0.15 cm . - Cryolife prosthetic aortic valve (size #28). There is mild (1+ - 2+) aortic valve regurgitation. The peak gradient is 47 mmHg, the mean gradient is 23 mmHg nd the dimensionless valve index is 0.32.Prior pk/mn gradients of 24/14 mmHg. - Exam was compared with the prior CC echocardiographic exam performed on 10/24/2018, AV gradients higher on today's study. Carotid Ultrasound 10/24/18: IMPRESSION Irregular heart rhythm [...] evidence of hemodynamically significant stenosis. CT Chest Dilated ascending aorta 4.5 cm. Biatrial enlargement. Findings of right heart dysfunction. Coronaryartery calcifications CT Kidney 02/13/20 IMPRESSION: STABLE 2.2 [...] of which have moderate to severe narrowing nearthe origins due to atherosclerotic plaque/calcification.. The portal [...] SMA as detail above. High degree stenoses ofthe renal artery origins with heavily calcified atherosclerotic plaque. DUAL LEAD PPM REMOTE EVALUATION 09/21/2022: PRESENTING EGM: AP/VS BATTERY STATUS: Estimated time remaining to YUE is 12.2 years COUNTERS SINCE 06/23/22: ATRIAL ARRHYTHMIAS: AF burden 53.9%. Anticoagulants listed: s/p Watchman implant VENTRICULAR ARRHYTHMIAS: There has been 2 nsVT detections. LEAD MEASUREMENTS: RA sensing is less than optimal at 0.4mV. RV sensing is appropriate. Review of the lead impedance trends are normal. OTHER DIAGNOSTICS: Total V pacing 11.5%. IMPRESSION: Ms. Sanches is a 77 year old woman with an extensive cardiac history. She had undergone aortic valve replacement 1996 with a homograft and possible repair of the ascending aorta. She informed me that her preoperative cardiac catheterization demonstrated no significant obstructive coronary disease.She has a remote smoking history with a history of significant secondhand smoke exposure. 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 She has been treated for paroxysmal atrial fibrillation and has undergone an ablation procedure. Her atrial fibrillation is now persistent. She has had a watchman device placed due to history of GI bleed and intolerance to anticoagulation therapy. She has a dual-chamber pacemaker placement for sinus node dysfunction and chronotropic incompetence. She has a history of chronic diastolic congestive heart failure in the setting of chronic kidney disease. She presents the office for follow-up. PLAN AND RECOMMENDATIONS: 1. History of prosthetic aortic valve replacement - ICD9: V43.3, ICD10: Z95.2 (primary diagnosis) No significant change in symptoms since last visit. Plan to repeat echocardiogram before next office visit. I have scheduled her for a study in March - ECHO - PERFLUTREN LIPID MICROSPHERES 1.1 MG/ML INJECTION IN NS 10 ML - SODIUM CHLORIDE 0.9 % (FLUSH) INJECTION SYRINGE 2. H/O rheumatic heart disease - ICD9: V12.59, ICD10: Z86.79 Patient with 2-3+ mitral regurgitation. Continue to follow clinically - ECHO - PERFLUTREN LIPID MICROSPHERES 1.1 MG/ML INJECTION IN NS 10 ML - SODIUM CHLORIDE 0.9 % (FLUSH) INJECTION SYRINGE 3. Paroxysmal atrial fibrillation (HCC) - ICD9: 427.31, ICD10: I48.0 Status post Watchman procedure. Patient has been maintained on low-dose aspirin. Repeat CBC is pending 4. Ascending aorta dilatation (HCC) - ICD9: 447.71, ICD10: I77.810 5. Dilated cardiomyopathy (HCC) - ICD9: 425.4, ICD10: I42.0 Patient maintained on Toprol and losartan. 6. Chronic combined systolic and diastolic CHF (congestive heart failure) ([facility]) - ICD9: 428.42, 428.0, ICD10: I50.42 Patient doing well on current diuretic therapy low-sodium diet 7. SSS (sick sinus syndrome) ([facility]) - ICD9: 427.81, ICD10: I49.5 8. S/P placement of cardiac pacemaker - ICD9: V45.01, ICD10: Z95.0 9. PAD (peripheral artery disease) ([facility]) - ICD9: 443.9, ICD10: I73.9 History of mild bilateral carotid artery disease. No symptoms for TIA or CVA. 10. Hyperlipidemia with target LDL less than 70 - ICD9: 272.4, ICD10: E78.5 Maintained on simvastatin 20 mg daily. Repeat fasting lipid panel - LIPID PANEL BASIC Carla Burdick MD documented in this encounterL[facility]02-27-2023 Miscellaneous Notes* Telephone Encounter - Margoth Bolaños MA - 08/31/2022 10:56 AM EST Patient has been identified by name and date of : Yes Requested Prescriptions Pending Prescriptions Disp Refills omeprazole (PRILOSEC) 40 mg capsule 90 capsule 1 Sig: Take 1 capsule by mouth once daily. RX INSTRUCTIONS: Patient aware RX will be sent to pharmacy. No need to notify patient. MARISOL 07/07/22 NOV 10/06/22 Margoth Bolaños MA documented in this encounterL[facility]01-18-2023 Miscellaneous Notes* Telephone Encounter - Mars Xiao - 07/22/2022 12:54 PM EST Study explained/reviewed with patient. Study related follow-up requirements were discussed. Risks, benefits, alternatives, personnel, and costs of the study explained/reviewed. Patient provided informed consent for review by email. Study related questions were addressed. Provided patient with contact information to call. Mars Xiao documented in this encounterL[facility]01-16-2023 Miscellaneous Notes* Telephone Encounter - Sheree Savage Ma - 07/20/2022 12:11 PM EST Faxed to [facility] at [phone] * Telephone Encounter - Sheree Savage Ma - 07/08/2022 12:45 PM EST Request sent to radiology * Telephone Encounter - Doreen Le PA-C - 07/08/2022 10:37 AM EST Please have 02/21/[address] IVC PE from [facility] imported and reviewed by radiologist for comparison with 03/19/2022 CT chest w IVCON PE. Not sure if this is the right order or even if needs order. Telephone on 07/08/22 CONSULT TO RADIOLOGY ThanksEdmund PA-C documented in this encounterLake[facility]01-03-2023 History of Present illness Narrative* Doreen Le PA-C - 07/07/2022 9:00 AM EST 76 year old female with c/o here for follow up H/o rheumatic heart disease (primary encounter diagnosis) Aortic prosthetic valve regurgitation, subsequent encounter Sss (sick sinus syndrome) (hcc) Atrial fibrillation, unspecified type (hcc) Presence of watchman left atrial appendage closure device Chronic combined systolic and diastolic chf (congestive heart failure) ([facility]) S/p placement of cardiac pacemaker Dilated cardiomyopathy (hcc) Ascending aorta dilatation (hcc) History of pulmonary embolism Platelet inhibition due to plavix Primary hypertension Hyperlipidemia with target ldl less than 70 Cardiovascular interval hx: 06/23/2022 pacemaker remote data: AF 45/3% burden, 1n VT, pacing 11.7% 03/19/2022 EKG: AF with RVR, VC's 03/19/2022 CT chest w/ IVCON PE: No CT evidence of pulmonary embolism. Nondiagnostic regions of segmental and subsegmental pulmonary arteries. Mediastinal and bilateral hilar adenopathy, possibly reactive. Clinical correlation and consideration to 3 month follow-up recommended 5-6 mm right lower lobe nodule. 3-6 month follow-up recommended. Trace left and small right pleural effusions 2.5 cm mass superior pole right kidney, concerning for neoplasm. Groundglass density anterior right lung, possible inflammation/infection Areas of mosaic attenuation, suggesting small airways/small vessels disease Dilated ascending aorta 4.5 cm. Biatrial enlargement. Findings of right heart dysfunction. Coronary artery calcifications 03/03/2022 echo: LV size WNL, LVSF moderately decreased , EF 38%-worse from prior RV size WNL. RVSF moderately-severely decreased.and worse from prior. RVSP 41mmHg. LA dilated with left atrial appendage no bilobed, Watchman device implanted, no thrombus, small leak.RA dilated. MV with 3+MR due to restricted leaf motion with regurgitant jet, moderate thickening, mild calcification. Peak /mean gradietn 16/8mmHg TV: 1-2+ TVr. AV: Cryolife prosthetic valve #28, 2-3+ AVr PV: tr PVr 11/26/2021 PVR: RIGHT GILDA 0.41, TBI 0.26; dx PAD LEFT: ABIi 0.63,TBI: 0.29 Bilateral ankle , moderate disease at rest. Aortic or iliofemoral disease. Right small vessel disease versus vasoconstriction. 03/22/2020 echo, Dr. Miller: LV mildly dilated, conc LVH, EF 60%, stage 2 diast dysf; RV size and RVSF NL; LA severely dilated, moderate 2-3+ MVR; prosthetic Cryolife valve: 2+ AVR with peak gradient 47/mmHg and mean 23mmHg up from . 03/24/2019 chest CTA 1. Small incompletely occluded PE 2nd and 3rd branch right upper lobe PA 2. extensive calcification aortic root with 4.5cm fusiform dilatation mid- ascending aorta 3. Atherosclerotic calcifications with ostial stenosis celiac trunk, SMA, bilateral renal arteries 4. Small dependent pleural effusions, larger on right, compressive atelectasis posterior lung bases.Bilateral small pleural effusions R>L. Additional: 3.95 x 2.85 x 1.1 cm right subcarinal node grossly increased in size 2.5 x 1.7 x 0.9cm right hilar node Ill defined density with scarring apical RUL unchanged. Subsegmental atelectasis bilateral lung bases, anteromedial AZUCENA. 5mm pleural density new 10/24/18 echo surveillance prosthetic valve (3yrs): LV severely dilated, mild concentric LVH, LVEF NL, EF = 56%. IndeterminateLVDD. RV size and RVSF NL. LA severely dilated, MR 2+, Cryolife prostheticaortic valve (size #28). AR 1-2+ w/ peak gradient 24 mmHg, mean gradient is 14 mmHg and the dimensionless valve index is 0.36. Comparison 11/19/2016, Moderate MR and AI has not progressed. 2000: valve replacement, bioprosthetic, h/o rheumatic heart disease. Her valve has regurgitation and needs echo every year. Current meds: Losartan 50mg daily Metoprolol succinate ER twice a day Furosemide 20mg daily ASA 81mg daily Clopidogrel 75mg daily Simvastatin 20mg daily HS Use of NTG: No Chest pain, arm, jaw pain, neck, or upper back pain suggestive of angina: No. SOB: No Dyspnea with exertion: No orthopnea: No Cough : No racing or irregular heartbeats: No palpitations: No syncopal sx: No Headache: No Unexplainable fatigue No Leg swelling: No Nausea: No diaphoresis: No Heartburn: No Claudication: No Smoking: No Following Low cholesterol, high fiber diet? Yes, really trying to watch salt If on statin: muscle aches? Legs bother with aching at night in bed. If on statin: GI sx or diarrhea? No Additional history none. Lab review: Last 3 Encounter BP Readings: Date: BP: 06/08/2022 188/64[166/54 after rest[ 05/14/2022 147/72 04/30/2022 125/49 Component Latest Ref Rng & Units 04/06/2022 04/15/2022 05/14/2022 WBC 3.70 - 11.00 k/uL 7.34 8.62 5.89 RBC 3.90 - 5.20 m/uL 3.75 (L) 3.91 4.15 Hemoglobin 11.5 - 15.5 g/dL 9.2 (L) 9.7 (L) 11.4 (L) Hematocrit 36.0 - 46.0 % 31.3 (L) 32.4 (L) 36.5 MCV 80.0 - 100.0 fL 83.5 82.9 88.0 MCH 26.0 - 34.0 pg 24.5 (L) 24.8 (L) 27.5 MCHC 30.5 - 36.0 g/dL 29.4 (L) 29.9 (L) 31.2 RDW-CV 11.5 - 15.0 % 19.9 (H) 21.1 (H) 26.1 (H) Platelet Count 150 - 400 k/uL 266 195 147 (L) MPV 9.0 - 12.7 fL 9.8 9.3 9.1 Neut% % 56.4 58.8 53.4 Abs Neut (ANC) 1.45 - 7.50 k/uL 4.14 5.07 3.14 Lymph% % 27.9 25.8 30.7 Abs Lymph 1.00 - 4.00 k/uL 2.05 2.22 1.81 Poinsett% % 12.7 12.3 12.6 Abs Poinsett <0.87 k/uL 0.93 (H) 1.06 (H) 0.74 Eosin% % 1.5 1.7 2.2 Abs Eosin <0.46 k/uL 0.11 0.15 0.13 Baso% % 1.1 0.9 0.8 Abs Baso <0.11 k/uL 0.08 0.08 0.05 Immature Gran % % 0.4 0.5 0.3 IMMATURE GRANS (ABS) <0.10 k/uL 0.03 0.04 <0.03 NRBC /100 WBC 0.0 0.0 0.0 Absolute nRBC <0.01 k/uL <0.01 <0.01 <0.01 DTYPE Auto Auto Auto Component Latest Ref Rng & Units 12/11/2020 12/15/2021 Cholesterol, Total <200 mg/dL 156 121 Triglyceride <150 mg/dL 117 93 HDL Cholesterol >39 mg/dL 57 43 LDL Cholesterol <100 mg/dL 76 59 Non HDL Cholesterol <130 mg/dL 99 78 Fasting Time hrs 12 12 VLDL Cholesterol <30 mg/dL 23 19 TC:HDL Ratio <5.10 2.74 2.81 LDL:HDL Ratio <2.54 1.33 1.37 Component Latest Ref Rng & Units 03/20/2022 03/21/2022 03/22/2022 04/06/2022 05/14/2022 Protein, Total 6.3 - 8.0 g/dL 6.3 6.0 (L) 6.3 Albumin 3.9 - 4.9 g/dL 3.6 (L) 3.6 (L) 3.6 (L) Calcium 8.5 - 10.2 mg/dL 9.1 9.2 9.4 9.3 9.1 Bilirubin, Total 0.2 - 1.3 mg/dL 0.4 0.5 0.6 Alkaline Phosphatase 34 - 123 U/L 96 92 99 AST 13 - 35 U/L 16 15 15 ALT 7 - 38 U/L 13 13 12 Glucose 74 - 99 mg/dL 160 (H) 143 (H) 127 (H) 128 (H) 137 (H) BUN 7 - 21 mg/dL 21 24 (H) 21 25 (H) 21 Creatinine 0.58 - 0.96 mg/dL 1.37 (H) 1.26 (H) 1.21 (H) 1.27 (H) 1.21 (H) Sodium 136 - 144 mmol/L 139 138 138 138 135 (L) Potassium 3.7 - 5.1 mmol/L 3.9 4.3 4.0 4.2 4.3 Chloride 97 - 105 mmol/L 102 100 101 102 100 CO2 22 - 30 mmol/L 29 26 24 23 27 Anion Gap 9 - 18 mmol/L 8 (L) 12 13 13 8 (L) eGFR >=60 mL/min/1.73m 40 (L) 44 (L) 47 (L) 44 (L) 47 (L) Magnesium 1.7 - 2.3 mg/dL 1.8 2.1 Pedro aneurysm of anterior communicating artery Neurosurgeon Dr. Dianne Rogers, [facility] 12/07/2017 note: f/u MRA 202012/02/2017 MRA brain WO/W: Endovascular coil mass involving the anterior communicating artery. No evidence of residual filling, aneurysm recurrence or coil impaction. Patent intracranial circulation. No evidence of aneurysm, occlusion, high-grade intracranial stenosis. 11/03/2017 F/U Dr. 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 (Ranjan 0) Stage 3b chronic kidney disease (hcc) Lab as above: stable Type 2 diabetes mellitus with diabetic peripheral angiopathy without gangrene, without long-term current use of insulin (hcc) Current medications: none Taking medication as directed consistently? none Medication side effects: Medical Issues / Complications: hypertension, hyperlipidemia, and cardiovascular disease Checking blood sugars at home? No. Watching diet? NoPhysical Activity: Sedentary Hypoglycemic spells? No Any visual disturbance? No Chest pain? No New numbness, tingling or loss of sensation? No Any recent foot problems, sores or rashes? No Any recent or sudden weight loss? No Change in urination? No. If yes: Any recent illness? No Last eye exam: recent Dr. Nguyen. Last foot exam: up to date. HBA1C: Hemoglobin A1C (%) Date Value 03/20/2022 6.4 12/15/2021 7.1 12/11/2020 7.0 07/12/2020 6.6 ) CMP: Glucose 137 05/14/2022 BUN 21 05/14/2022 Creatinine 1.21 05/14/2022 Sodium 135 05/14/2022 Potassium 4.3 05/14/2022 Chloride 100 05/14/2022 CO2 27 05/14/2022 Protein, Total 6.3 03/22/2022 Albumin 3.6 03/22/2022 Calcium 9.1 05/14/2022 Alkaline Phosphatase 99 03/22/2022 Bilirubin, Total 0.6 03/22/2022 AST 15 03/22/2022 ALT 12 03/22/2022 Last 2 Encounter Wt Readings: Date: Wt: 06/08/2022 66 kg (145 lb 9.6 oz) 05/14/2022 68.5 kg (151 lb) Renal mass, right 03/19/2022 CT ABD/PEL wIVCON:Redemonstrated 2.5 cm mass in the superior pole of the right kidney 06/12/19 CTABD/PEL w/ IVCON: demonstrated persistent sigmoid wall thickening consistent with diverticulitis and small collection of fluid along the inferior aspect of the sigmoid colon probably residual abscess, less likely prominent diverticulum and also right upper pole renal mass suspicious for renal cell carcinoma which was not evident on prior CT of 2015 but which also was not identified and her recent CT scans which were done in [facility]. Anemia, blood loss As above CBC improving Component Latest Ref Rng & Units 03/21/2022 04/06/2022 05/14/2022 Iron 41 - 186 ug/dL 24 (L) 26 (L) 68 TIBC 232 - 386 ug/dL 385 454 (H) 390 (H) Transferrin Saturation 15.0 - 57.0 % 6.2 (L) 5.7 (L) 17.4 Retic % 0.4 - 2.0 % 2.4 (H) Abs Retic 0.018 - 0.100 M/uL 0.077 Occult Blood Diagnostic Negative Negative Ferritin 14.7 - 205.1 ng/mL 24.7 27.1 109.0 Folate >4.7 ng/mL 12.3 Vitamin B12 232 - 1,245 pg/mL 708 Current medications: Omeprazole 40mg daily HISTORIES FAMILY HISTORY Problem Relation Age of Onset other (Heart Problems) Mother other (myocardial infarction) Mother other (cardiovascular disease) Mother other (Heart Attack) Father other (cardiovascular disease) Father Diabetes Maternal Grandmother PAST MEDICAL HISTORY Diagnosis Date Abnormal colonoscopy [...] 06/01/16 Mitral valve regurgitation Pacemaker 10/21/[address] TRELL VERNON [id number] pulse generator, his bundle lead, right atrial lead Peripheral arterial disease (HCC) Rheumatic fever Steatosis, liver 03/26/2014 fatty liver on US. 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 Lua PACEMAKER 10/2019 PART. HYSTERECTOMY W/WO RMVL OVARIES/TUBES 1974 h/o cervical cancer ovaries remain PAST SURGICAL HISTORY OF 1996 Aortic valve repair, Dr. Apodaca PAST SURGICAL HISTORY OF 2001 [address] Beltrán, [facility] PAST SURGICAL HISTORY OF 2015 clipping and coil for brain aneurysm Social History Tobacco Use Smoking status: Former Packs/day: 0.25 Years: 2.00 Pack years: 0.50 Types: Cigarettes Quit date: 1967 Years since quittin.0 Smokeless tobacco: Never Vaping Use Vaping Use: Never used Substance Use Topics Alcohol use: Not Currently Alcohol/week: 1.0 standard drink Types: 1 Glasses of Wine (5oz) per week Comment: red wine 2-3 times a week- occasional Drug use: No ACTIVE PROBLEM LIST History of Prosthetic Aortic Valve Replacement Aortic Prosthetic Valve Regurgitation Paroxysmal Atrial Fibrillation (Hcc) Htn (Hypertension) Hyperlipidemia With Target Ldl Less Than 70 Gerd (Gastroesophageal Reflux Disease) Chronic Anticoagulation Fatigue Sob (Shortness of Breath) H/O Rheumatic Heart Disease Basal Cell Carcinoma Left Shoulder Pain Intracranial Aneurysm Bilateral Carotid Artery Stenosis Osteopenia of Left Lower Leg Mastoiditis of Right Side Chronic Mastoiditis of Left Side Personal History of Colonic Polyps History of Ischemic Colitis Adenomatous Polyp of Descending Colon Skin Cancer Pad (Peripheral Artery Disease) (Hcc) Pedro Aneurysm of Anterior Communicating Artery Stage 3 Chronic Renal Impairment Associated With Type 2 Diabetes Mellitus (Hcc) History of Pulmonary Embolism Ascending Aorta Dilatation (Hcc) Chronic Bilateral Pleural Effusions Colovesical Fistula Right Renal Mass Diverticulitis Large Intestine W/O Perforation Or Abscess W/O Bleeding Renal Cell Carcinoma, Right ([facility]) Iron Deficiency Anemia Hypomagnesemia Gastrointestinal Hemorrhage Associated With Acute Gastritis Esophageal Stenosis Dilated Cardiomyopathy (Hcc) Chronic Systolic Congestive Heart Failure (Hcc) Sss (Sick Sinus Syndrome) ([facility]) Duodenal Ulcer Type 2 Diabetes Mellitus With Diabetic Peripheral Angiopathy Without Gangrene, Without Long-Term Current Use of Insulin ([facility]) Longstanding Persistent Atrial Fibrillation ([facility]) S/P Placement of Cardiac Pacemaker Ckd (Chronic Kidney Disease) Platelet Inhibition Due to Plavix Diverticulosis Lung Nodule, Solitary Red Blood Cell Antibody Positive Iron Deficiency Anemia Secondary to Inadequate Dietary Iron Intake Iron Malabsorption Chronic Renal Failure, Stage 3b ([facility]) Current Outpatient Medications Medication Sig Dispense Refill losartan (COZAAR) 50 mg tablet Take 1 tablet by mouth once daily. 90 tablet 3 metoprolol succinate ER (TOPROL XL) 50 mg 24 hr tablet TAKE 1 TABLET BY MOUTH TWICE A DAY 60 [id number] furosemide (LASIX) 20 mg tablet Take 2 tablets by mouth once daily. 90 tablet 3 clopidogrel (PLAVIX) 75 mg tablet Take 1 tablet by mouth once daily. Only for 6 months. After that stay on ASA 81 mg daily, 90 tablet 1 aspirin 81 mg chewable tablet Take 1 tablet by mouth once daily. 30 tablet 11 omeprazole (PRILOSEC) 40 mg capsule Take 1 capsule by mouth once daily. 90 capsule 1 simvastatin (ZOCOR) 20 mg tablet Take 1 tablet by mouth daily at bedtime. 90 tablet 3 acetaminophen (TYLENOL) 500 mg tablet Take 1-2 tablets by mouth every 6 hours as needed. blood sugar diagnostic (BLOOD GLUCOSE TEST) test strip Test blood sugar(s) 2 times daily. Dx: Type 2 DM - Controlled E11.9 Insulin: No 50 Strip 11 UBIDECARENONE (COQ-10 ORAL) Take 1 capsule by mouth once daily. No current facility-administered medications for this visit. BP CONTROLLED (<130/80) Never done COVID-19 VACCINE(4 - Booster for [employer] series) due on 05/08/2021 ADVANCE DIRECTIVE DISCUSSION due on 07/05/2022 DEPRESSION ASSESSMENT Never done EXAM: BP 148/62 Pulse 74 Resp 16 Wt 65.3 kg (144 lb) SpO2 97% BMI 26.77 kg/m Pleasant adult woman in no acute distress: looking leyva and brighter than the last several months. Alert and oriented all spheres. Normal affect and cognition. Speech normal. No deficits to learning or comprehension. Skin warm, dry, pink to lips and nailbeds. Normal turgor. Respirations regular and unlabored. HEENT: NCAT. No scleral icterus or conjunctival injection. TM's clear. Nose and oropharynx free from injection or lesion. Oral membranes moist and pink. No cervical lymph nodes. Thyroid non-tender, no masses, or enlargement. Carotids pulses 2+/4+ without bruits. No JVD with HOB at 30 degrees. Chest is normal shape. Lungs are clear to all rosas with good air exchange through out. HRRR without murmur or gallop. No lifts, heaves, or rubs. Extrem: no clubbing or cyanosis. Edema: none. Extremities are warm and pink with prompt capillary refill. ASSESSMENT/PLAN: 1. H/O rheumatic heart disease - ICD9: V12.59, ICD10: Z86.79 (primary diagnosis) 2. Aortic prosthetic valve regurgitation, subsequent encounter - ICD9: V58.89, ICD10: T82.897D Stable. Asymptomatic: continue medicatioins 3. SSS (sick sinus syndrome) ([facility]) - ICD9: 427.81, ICD10: I49.5 4. Atrial fibrillation, unspecified type ([facility]) - ICD9: 427.31, ICD10: I48.91 5. Presence of Watchman left atrial appendage closure device - ICD9: V45.09, ICD10: Z95.818 Currently in controlled regular rhythm with out signs of CHF Continue current meds. 6. 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) - ICD9: 428.42, 428.0, ICD10: I50.42 7. S/P placement of cardiac pacemaker - ICD9: V45.01, ICD10: Z95.0 8. Dilated cardiomyopathy (HCC) - ICD9: 425.4, ICD10: I42.0 Stable, continue to monitor 9. Ascending aorta dilatation (HCC) - ICD9: 447.71, ICD10: I77.810 Stable 4.5cm fusiform dilation- annual checks 10. History of pulmonary embolism - ICD9: V12.55, ICD10: Z86.711 resolved 11. Platelet inhibition due to Plavix - ICD9: V58.63, ICD10: Z79.02 Follow CBC 12. Primary hypertension - ICD9: 401.9, ICD10: I10 - good control - Continue current medication(s) - Recommended regular aerobic exercise. - Recommend home blood pressure monitoring, to bring results in on next visit - Goal of BP <130/80 13. Hyperlipidemia with target LDL less than 70 - ICD9: 272.4, ICD10: E78.5 - good control - Continue current medication. 14. Pedro aneurysm of anterior communicating artery - ICD9: 430, ICD10: I67.1 Stable symptomatically Due fro recheck 2020 - MRA BRAIN WO/W IVCON - IV CONTRAST (RADIOLOGY PROCEDURE) 15. Stage 3b chronic kidney disease (HCC) - ICD9: 585.3, ICD10: N18.32 - eGFR: Stable - Counseled on avoiding regular use of NSAIDs, adequate hydration, potential risk of IV dye - CBC + DIFF 16. Type 2 diabetes mellitus with diabetic peripheral angiopathy without gangrene, without long-term current use of insulin (HCC) - ICD9: 250.70, 443.81, ICD10: E11.51 Controlled of medication - CBC + DIFF 17. Renal mass, right - ICD9: 593.9, ICD10: N28.89 Stable, has US ordered for follow up 18. Anemia, blood loss - ICD9: 280.0, ICD10: D50.0 Much improved- doing better with energy 19. Intracranial aneurysm - ICD9: 437.3, ICD10: I67.1 As below 20. Spondylolisthesis at L4-L5 level - ICD9: 756.12, ICD10: M43.16 Stable: managing without medication 21. Nonruptured cerebral aneurysm - ICD9: 437.3, ICD10: I67.1 Recheck, stable symptomatically - MRA BRAIN WO/W IVCON 22. Paroxysmal atrial fibrillation (HCC) - ICD9: 427.31, ICD10: I48.0 Currently in regular rhythm. Continue meds and regular suveillance. 23. Peripheral artery disease (HCC) - ICD9: 443.9, ICD10: I73.9 Following with vascular Doeren Le PA-C F/u 3 months Doreen Le PA-C [facility] Miscellaneous Notes* Telephone Encounter - Lizeth Du LPN - 05/25/2022 7:25 AM EST Refill not appropriate at this time, according to records there should be at least 2 refills available. documented in this encounterL[facility]11-10-[facility]22 History of Present illness Narrative* Sonny Lund MD - 05/14/2022 9:28 AM EST PATIENT NAME: Berta Sanches. CLINIC NO: [id number]. ATTENDING PHYSICIAN: Sonny Lund MD. DATE OF SERVICE:05/14/2022. DIAGNOSIS: Iron deficiency anemia HPI: This is a 76-year-old lady with history of atrial fibrillation, prosthetic aortic valve replacement and congestive heart failure who [facility] for decompensated heartfailure and severe anemia requiring blood transfusion. She has a history of rectal bleeding from diverticulosis in February. She had an upper endoscopy and colonoscopy which showed diverticular bleed secondary to anticoagulation therapy. She was previouslyon rivaroxaban for atrial fibrillation, but this was stopped after she had a watchman device in February. She is currently on aspirin and Plavix. She required blood transfusion and diuresis during her last hospitalization in March. She complains of severe fatigue, dyspnea exertion, dizziness and lightheadedness also cold intolerance. Although she denies rectal bleeding or hematuria since she was discharged home last month. She started iron supplement this month for iron deficiency anemia. She hasddifficulty with iron supplement due to constipation and upset stomach. Although she denies orthopnea, she has pedal edema today on exam. She denied cough or hemoptysis. No fever or any sign of infection. She saw urology recently for a right kidney mass for possible renal cell cancer. Interim history: Patient received iron sucrose last month and she is feeling much better. Less fatigue and no shortness of breath. She still has some swelling in her legs. She denies hematuria, change in bowel habit, rectal bleeding or melena. All medications & allergies updated and reviewed by me. REVIEW OF SYSTEMS: CONSTITUTIONAL: No fevers, chills, nightsweats, unintended weight loss HEENT: Denies frequent or severe heaches, nasal congestion/sinus symptoms, problematic allergy problems. EYES: No diplopia or blurry vision. CARDIOVASCULAR: No chest pain, + dyspnea, palpitations, no orthopnea, PND, + ankle edema. PULM: No dyspnea, unexplained cough. GI: No dysphagia/odynophagia, problematic reflux, constipation, diarrhea, changes in stool habits, hematochezia, melena. : No new urinary complaints, including dysuria, gross hematuria or pyuria. NEURO: No new balance problems, peripheral weakness/paresthesias or numbness of concern. MUSC-SKEL: No new joint pain, swelling, or erythema. PSY: No concerns regarding depression, anxiety or panic. INTEGUMENTARY: No new skin changes (rash, new or changing mole, new growth) PHYSICAL EXAMINATION: BP 147/72 Pulse 84 Temp (Src) 98.9 (Temporal) Resp 16 Wt 151 lb (68.5kg) SpO2 98% HEENT: Head is normocephalic, atraumatic. Sclerae white, conjunctivae pink. PEERL. EOMs are intact.Oropharynx is benign. LYMPHATICS: There is no palpable adenopathy in the neck, supraclavicular region, axillae, or groin. LUNGS: Lungs are clear to percussion and auscultation. no rales or wheezing. HEART: Heart is normal with grade 1 systolic murmurs right sternal border, grade 1 diastolic murmurleft apex no gallops, or rubs. ABDOMEN: Soft and nontender without organomegaly. No masses can be palpated. EXTREMITIES: Are trace edema.(Better) NEUROLOGIC: Exam is physiologic LABORATORY DATA: Component Latest Ref Rng & Units 05/14/2022 WBC 3.70 - 11.00 k/uL 5.89 RBC 3.90 - 5.20 m/uL 4.15 Hemoglobin 11.5 - 15.5 g/dL 11.4 (L) Hematocrit 36.0 - 46.0 % 36.5 MCV 80.0 - 100.0 fL 88.0 MCH 26.0 - 34.0 pg 27.5 MCHC 30.5 - 36.0 g/dL 31.2 RDW-CV 11.5 - 15.0 % 26.1 (H) Platelet Count 150 - 400 k/uL 147 (L) MPV 9.0 - 12.7 fL 9.1 Neut% % 53.4 Abs Neut (ANC) 1.45 - 7.50 k/uL 3.14 Lymph% % 30.7 Abs Lymph 1.00 - 4.00 k/uL 1.81 Poinsett% % 12.6 Abs Poinsett <0.87 k/uL 0.74 Eosin% % 2.2 Abs Eosin <0.46 k/uL 0.13 Baso% % 0.8 Abs Baso <0.11 k/uL 0.05 Immature Gran % % 0.3 IMMATURE GRANS (ABS) <0.10 k/uL <0.03 NRBC /100 WBC 0.0 Absolute nRBC <0.01 k/uL <0.01 DTYPE Auto Component Latest Ref Rng & Units 05/14/2022 Iron 41 - 186 ug/dL 68 TIBC 232 - 386 ug/dL 390 (H) Transferrin Saturation 15.0 - 57.0 % 17.4 Ferritin 14.7 - 205.1 ng/mL 109.0 Component Latest Ref Rng & Units 04/09/2022 GLUCOSE UA (POCT) Negative mg/dL Negative BILIRUBIN UA (POCT) Negative Negative KETONE UA (POCT) Negative mg/dL Negative SPECIFIC GRAVITY UA (POCT) 1.005 - 1.030 1.020 HEMOGLOBIN/BLOOD UA (POCT) Negative Negative PH UA (POCT) 4.5 - 8.0 5.5 PROTEIN UA (POCT) Negative mg/dL 30 (A) UROBILINOGEN UA (POCT) Normal E.U./dL 0.2 NITRITE UA (POCT) Negative Negative LEUKOCYTES UA (POCT) Negative Negative COLOR UA (POCT) Yellow CLARITY UA (POCT) Clear ASSESSMENT/PLAN: 76-year-old female with symptomatic anemia and iron deficiency secondary to chronic blood loss. Poor tolerance to oral iron supplement and possible iron malabsorption. 1) iron deficiency anemia -improved with iron infusion Plan: -Monitor CBC and follow-up with PCP -Continue furosemide 40 mg once daily 2) kidney mass at superior pole of right kidney Plan: -Repeat ultrasound kidney and follow-up with urology next year Portions of this documentation were copied and pasted from previous office visit notes in order to provide a cohesive continuity of the history. The note has been reviewed and edited and updated as necessary. Sonny Lund MD Cc: Doreen Le PA-C documented in this encounterL[facility]10-19-2022 Miscellaneous Notes* Telephone Encounter - Lizeth Mcknight LPN - 04/22/2022 2:28 PM EDT Patient's pharmacy requesting new refill. Requested Prescriptions Pending Prescriptions Disp Refills losartan (COZAAR) 25 mg tablet [Pharmacy Med Name: LOSARTAN POTASSIUM 25 MG TAB] 30 tablet 11 Sig: TAKE 1 TABLET BY MOUTH EVERY DAY metoprolol succinate ER (TOPROL XL) 50 mg 24 hr tablet [Pharmacy Med Name: METOPROLOL SUCC ER 50 MGTAB] 60 tablet 11 Sig: TAKE 1 TABLET BY MOUTH TWICE A DAY She will see Dr Burdick on 06-08-2022. Lizeth Mcknight LPN documented in this encounterL[facility]10-06-2022 Miscellaneous Notes* Telephone Encounter - Sheree Savage Ma - 04/09/2022 3:32 PM EDT Please schedule CT chest for 3 months. Thanks, Edmund Le PA-C documented in this [facility]10[facility] History of Present illness Narrative* Brayan Chicas MD - 04/09/2022 11:56 AM EDT Consultation requested by Doreen Maza PA-C for an opinion regarding Patient presents with: New Patient: Hospital follow up/Discuss renal mass . My final recommendations will be communicated back to the requesting physician by way of shared Medical record or letter to requesting physician via US mail. HISTORY OF PRESENT ILLNESS: Berta Sanches 76 year old female who complains of a right renal mass. She was seen over [address] Wagner for the same lesion Unfortunately there has been some demonstrated growth She is currently struggling with anemia and is in evaluation HPI 1-Duration: Years 2-Location: Right kidney 3-Severity: Severe 4-Quality: 5-Context: 6-Timin-Modifying factors: 8-Associated signs & symptoms: None GLUCOSE UA (POCT) Negative 04/09/2022 BILIRUBIN UA (POCT) Negative 04/09/2022 KETONE UA (POCT) Negative 04/09/2022 SPECIFIC GRAVITY UA (POCT) 1.020 04/09/2022 HEMOGLOBIN/BLOOD UA (POCT) Negative 04/09/2022 PH UA (POCT) 5.5 04/09/2022 PROTEIN UA (POCT) 30 04/09/2022 UROBILINOGEN UA (POCT) 0.2 04/09/2022 NITRITE UA (POCT) Negative 04/09/2022 LEUKOCYTES UA (POCT) Negative 04/09/2022 COLOR UA (POCT) Yellow 04/09/2022 CLARITY UA (POCT) Clear 04/09/2022 Creatinine Date Value Ref Range Status 04/06/2022 1.27 (H) 0.58 - 0.96 mg/dL Final 03/22/2022 1.21 (H) 0.58 - 0.96 mg/dL Final 03/21/2022 1.26 (H) 0.58 - 0.96 mg/dL Final 03/20/2022 1.37 (H) 0.58 - 0.96 mg/dL Final Medications/allergies reviewed and updated. PAST MEDICAL HISTORY Diagnosis Date Abnormal colonoscopy [...] surgical removal Chronic mastoiditis of left side Diabetes (HCC) Diabetes (HCC) GERD (gastroesophageal reflux disease) H/O: GI bleed High blood pressure Hypercholesterolemia Mastoiditis of right side s/p mastoidectomy, complete opacitificationright tympanic cavity and mastoid cells on CT 06/01/16 Mitral valve regurgitation Pacemaker 10/21/[address] TRELL VERNON [id number] pulse generator, his bundle lead, right atrial lead Peripheral arterial disease (HCC) Rheumatic fever Steatosis, liver 03/26/2014 fatty liver on US. No gallstones Tachy-pavan syndrome (HCC) PAST SURGICAL HISTORY Procedure Laterality Date ABLATION 2018 for afib ANESTHESIA EXTERNAL MIDDLE & INNER EAR W/BX NOS 2002, 2004,04/30/15 CARDIOVERSION 2018 EGD 02/28/2021 ESOPHAGOGASTRODUODENOSCOPY TRANSORAL DIAGNOSTIC 02/28/2021 LAP COLECTOMY, SIGMOID W/SUPERVISING LIBRARIAN 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 Lua PACEMAKER 10/2019 PART. HYSTERECTOMY W/WO RMVL OVARIES/TUBES 1974 h/o cervical cancer ovaries remain PAST SURGICAL HISTORY OF 1996 Aortic valve repair, Dr. Apodaca PAST SURGICAL HISTORY OF 2001 [address] Beltrán, [facility] PAST SURGICAL HISTORY OF 2015 clipping and coil for brain aneurysm FAMILY HISTORY Problem Relation Age of Onset other (Heart Problems) Mother other (myocardial infarction) Mother other (cardiovascular disease) Mother other (Heart Attack) Father other (cardiovascular disease) Father Diabetes Maternal Grandmother Social History Tobacco Use Smoking status: Former Types: Cigarettes Quit date: 02/11/1970 Years since quittin.1 Smokeless tobacco: Never Vaping Use Vaping Use: Never used Substance Use Topics Alcohol use: Yes Alcohol/week: 1.0 standard drink Types: 1 Glasses of Wine (5oz) per week Comment: red wine 2-3 times a week- occasional Drug use: No ALLERGIES: ALLERGIES Allergen Reactions Protamine Anaphylaxis Had acute drop in blood pressure and end tidal Co2 shortly after administration during watchman procedure on 01/12/22, treated with 60 mcg epinephrine and 10 mg dexamethasone with good response. CURRENT OUTPATIENT MEDICATIONS: ferrous sulfate 325 mg (65 mg iron) tablet Take 1 tablet by mouth twice daily with meals. metoprolol succinate ER (TOPROL XL) 50 mg 24 hr tablet Take 1 tablet by mouth twice daily. losartan (COZAAR) 25 mg tablet Take 1 tablet by mouth once daily. furosemide (LASIX) 20 mg tablet Take 1 tablet by mouth once daily. magnesium oxide (MAG-OX) 400 mg (241.3 mg magnesium) tablet Take 1 tablet by mouth daily at bedtime. clopidogrel (PLAVIX) 75 mg tablet Take 1 tablet by mouth once daily. Only for 6 months. After that stay on ASA 81 mg daily, sodium chloride 0.9 %, flush, (BD POSIFLUSH) syringe Inject 2-10 mL intravenously as directed. For Echo procedure aspirin 81 mg chewable tablet Take 1 tablet by mouth once daily. omeprazole (PRILOSEC) 40 mg capsule Take 1 capsule by mouth once daily. simvastatin (ZOCOR) 20 mg tablet Take 1 tablet by mouth daily at bedtime. acetaminophen (TYLENOL) 500 mg tablet Take 1-2 tablets by mouth every 6 hours as needed. Cholecalciferol-Soy Isoflavone 2,000-64 unit-mg tab Take 1 capsule by mouth once daily. blood sugar diagnostic (BLOOD GLUCOSE TEST) test strip Test blood sugar(s) 2 times daily. Dx: Type 2 DM - Controlled E11.9 Insulin: No UBIDECARENONE (COQ-10 ORAL) Take 1 capsule by mouth once daily. furosemide (LASIX) 40 mg tablet Take 1 tablet by mouth once daily for 5 days. REVIEW OF SYSTEMS: Const: Well appearing, in no acute distress, well-hydrated, well-nourished, alert, awake, oriented to time, place and person. HEENT: Negative for frequent or significant headaches. No changes in hearing or vision, no nose bleeds or other nasal problems. Neck: Negative for lumps, goiter, pain and significant neck swelling. Resp: Negative for cough, wheezing or shortness of breath. CV: Negative for chest pain, leg swelling or palpitations. GI: Negative for abdominal discomfort, blood in stools or black stools and change in bowel habits. : See HPI Musculoskelatal: Negative for joint pain or swelling, back pain or muscle pain. Skin: No skin lesions. Psych: Negative for sleep disturbance, mood disorder and recent psychosocial stressors. Tawanda/Lymph: Negative for prolonged bleeding, bruising easily or swollen nodes. Endocrine: Negative for cold or heat intolerance, polyuria, polydipsia and goiter. Neuro: No history of headaches, syncope, paralysis, seizures or tremors. PHYSICAL EXAMINATION: VITAL SIGNS: Ht 5' 3.5" (1.61m) Wt 149 lb (67.6kg) BMI 25.98 kg/(m^2). General appearance: Well appearing, in no acute distress, well-hydrated, well- nourished, alert, awake, oriented to time, place and person. LAST LAB RESULTS: PT INR 1.2 10/24/2019 PT Sec 12.6 10/24/2019 Glucose (mg/dL) Date Value 04/06/2022 128 05/20/2021 117 Potassium (mmol/L) Date Value 04/06/2022 4.2 05/20/2021 4.9 Sodium (mmol/L) Date Value 04/06/2022 138 05/20/2021 132 Chloride (mmol/L) Date Value 04/06/2022 102 05/20/2021 99 CO2 (mmol/L) Date Value 04/06/2022 23 05/20/2021 24 Creatinine (mg/dL) Date Value 04/06/2022 1.27 06/02/2021 1.37 BUN (mg/dL) Date Value 04/06/2022 25 05/20/2021 23 Anion Gap (mmol/L) Date Value 04/06/2022 13 05/20/2021 9 Calcium (mg/dL) Date Value 05/20/2021 9.3 Calcium, Total (mg/dL) Date Value 04/06/2022 9.3 Protein, Total (g/dL) Date Value 03/22/2022 6.3 03/22/2022 6.0 02/18/2021 6.9 Albumin (g/dL) Date Value 03/22/2022 3.6 02/18/2021 3.9 Bilirubin, Total (mg/dL) Date Value 03/22/2022 0.6 02/18/2021 0.3 Alkaline Phosphatase (U/L) Date Value 03/22/2022 99 02/18/2021 70 AST (U/L) Date Value 03/22/2022 15 02/18/2021 19 ALT (U/L) Date Value 03/22/2022 12 02/18/2021 20 Glucose Date Value Ref Range Status 04/06/2022 128 (H) 74 - 99 mg/dL Final Comment: The [place] [employer] (ADA) provides guidance for cutoff values for fasting glucose andrandom glucose. The ADA defines fasting as no [...] Standards of Medical Care in Diabetes 2016, [place] [employer]. Diabetes Care. 2016.39(Suppl 1). I personally reviewed the patient's radiology images and dictation and I agree with the radiologist's opinion. I personally reviewed the patient's laboratory studies. I had an extended discussion with the patient regarding renal lesion and further evaluation modalities including serial ultrasound, CT, MRI and biopsy. I had an extended discussion with the patient regarding renal lesion and treatment options: observation, cryotherapy, RFA (radio frequency ablation), partial and radical nephrectomy with open and laparoscopic technique. I explained that solid masses have approximately 80% chance malignancy. 20-30% of renal malignancies are aggressive. Small lesions (<3cm) have <3% chance spread annually with growth likely <3mm annually. I explained the various possible complications of this surgical procedure. These included perforation of the colon, a possible temporary or permanent colostomy, sudden and chronic blood loss during surgery, possible ureteral injury, swelling of the abdomen post-operatively, post-operative ileus, post-operative infection of the wound, thrombophlebitis, incisional hernia and wound separation. I expl ained the possibility of lung injury, liver/spleen injury, large and small bowel injury, treatment failure, heart attack, stroke and . IMPRESSION: 2.8 cm right upper pole solid enhancing mass concerning for malignancy until proven otherwise. Reviewed her prior films and the current films with the patient and her family personally. The demonstrated growth is typical for a small renal mass. They can certainly be followed with a low chance of spread over time. At some point when the lesion is over 3 cm then she may need to consider partial nephrectomy more strongly. She is not feeling well and wants to find out what is going on with her anemia before proceeding with anything additionally. We have agreed on a period of observation Stage IIIb chronic kidney disease Type 2 diabetes PLAN: Renal ultrasound in 6 months and follow-up with me afterwards Written and verbal health teaching given to patient, patient verbalizes understanding and agrees with treatment plan. Patient will call if worsening symptoms, no improvement, or any other concerns. Plan discussed. Brayan Chicas MD Electronically Signed: Brayan Chicas MD April 09, 2022 12:16 PM This note was partially created using voice recognition software and is inherently subject to errors including those of syntax and "sound-alike" substitutions which may escape proofreading. In such instances, original meaning may be extrapolated by contextual derivation. [facility] Miscellaneous Notes* Telephone Encounter - Daysi Gray - 04/08/2022 8:41 AM EDT Spoke with patient and scheduled. Daysi Gray * Telephone Encounter - Doreen Le PA-C - 04/07/2022 3:56 PM EDT No, Dr. Lund is fine. Please continue orders for infusion. Thanks, Edmund Le PA-C * Telephone Encounter - Daysi Gray - 04/07/2022 8:29 AM EDT Please confirm that consult orders and consultation appointment with Dr. Lund need to be cancelled. Daysi Gray * Telephone Encounter - Ralph Mujica DO - 04/07/2022 6:22 AM EDT Edmund Le PA-C is referring this patient for iron infusion. Please schedule her for 5 doses of iron sucrose. She will follow-up with her PCP's team after iron infusions. Ralph Mujica DO documented in this encounterL[facility]10-03-2022 Instructions* Patient Instructions* M Claudia Le PA-C - 04/06/2022 11:15 AM EDT Foods Rich in Iron I am sending in a prescription for iron sulfate. Please try to get this in daily but if you have too many side effects, try to get it in at least 3 days a week. Foods Rich in Iron Please eat three servings a day from the foods listed below. You should note that the iron from fruits, vegetables, cereals, and eggs is not absorbed as efficiently as iron from meat, fish, and poultry. Adding vitamin C to your diet helps iron absorption from these foods. You may therefore want to take up to 1000 mg of vitamin C to help your body absorb the iron in your diet. The following foods, in the proportions listed, will provide you with more than 15 mg of iron. Apricots (dried) 5 halves-Beans (cooked) 1/2 cup-Beef (cooked) 2 oz-Beet greens (cooked) 1/2 cup-Bandy nuts 5 medium-Cereals 1 oz-Chicken (cooked) 3 oz - Cider (sweet) 10 oz - Clams 1 oz -Egg (Whole) 2- Ham (cooked) 2 oz - Heart (cooked) 2 oz- Kidney (cooked) 1 oz- Marie (cooked) 2 oz- Liver (cooked) 1 oz- Liver sausage 1 oz- Maple syrup 3 tbsp. Molasses 2 tbsp.- Oysters 1 oz- Peaches (dried) 3 mohr lves- Peas (cooked) 1/2 cup- Pork (cooked) 2 oz-Prunes 4 medium - Prune juice 1/4 cup - Raisins 1 1/2 oz- Sardines 2 oz- Scallops 2 oz- Shrimp 2 oz- Spinach (cooked) 1/2 cup- Strawberries 1 cup- Tomato juice 3/4 cup- Tongue 2 oz- Tuna 1/2 cup- [place] (cooked) 1 oz- Veal (cooked) 1 oz- Watermelon (6"x11/2") 1 slice-Wheat Germ 2 tbsp. Iron supplements are absorbed best when taken between meals, with liquids other than milk, coffee, or tea. Taking them at bedtime often helps reduce the chance of nausea. If you can't tolerate daily, try at least three times a week. documented in this encounterL[facility]10-03-2022 History of Present illness Narrative* Doreen Le PA-C - 04/06/2022 10:20 AM EDT 76 year old female with c/o here for follow hospital Not doing well Very SOB No stamina, very SOB. Mentioned iron infusions. Hospital discharge follow-up Facility [facility] Admission date 03/19/2022 Discharge date 03/22/2022 Pre-hospitalization details: See note 03/19/2022: CHF, EKG AF, hx GIB melena admitted 02/21-02/24/2022 [place]. 03/19/22 Sent from office to [facility]: VS [id number] 98% RA Exam + rales. 2/4+ pitting edema Component Latest Ref Rng & Units 03/19/2022 WBC 3.70 - 11.00 k/uL 8.02 RBC 3.90 - 5.20 m/uL 3.35 (L) Hemoglobin 11.5 - 15.5 g/dL 8.4 (L) Hematocrit 36.0 - 46.0 % 29.5 (L) MCV 80.0 - 100.0 fL 88.1 MCH 26.0 - 34.0 pg 25.1 (L) MCHC 30.5 - 36.0 g/dL 28.5 (L) RDW-CV 11.5 - 15.0 % 20.7 (H) Platelet Count 150 - 400 k/uL 207 MPV 9.0 - 12.7 fL 9.8 Neut% % 60.9 Abs Neut (ANC) 1.45 - 7.50 k/uL 4.89 Lymph% % 26.1 Abs Lymph 1.00 - 4.00 k/uL 2.09 [place]ett% % 9.6 Abs [place] <0.87 k/uL 0.77 Eosin% % 1.9 Abs Eosin <0.46 k/uL 0.15 Baso% % 0.9 Abs Baso <0.11 k/uL 0.07 Immature Gran % % 0.6 IMMATURE GRANS (ABS) <0.10 k/uL 0.05 NRBC /100 WBC 0.0 Absolute nRBC <0.01 k/uL <0.01 DTYPE Auto Protein, Total 6.3 - 8.0 g/dL 6.7 Albumin 3.9 - 4.9 g/dL 3.5 (L) Calcium 8.5 - 10.2 mg/dL 9.0 Bilirubin, Total 0.2 - 1.3 mg/dL 0.6 Alkaline Phosphatase 34 - 123 U/L 108 AST 13 - 35 U/L 34 ALT 7 - 38 U/L 15 Glucose 74 - 99 mg/dL 248 (H) BUN 7 - 21 mg/dL 21 Creatinine 0.58 - 0.96 mg/dL 1.10 (H) Sodium 136 - 144 mmol/L 136 Potassium 3.7 - 5.1 mmol/L 4.2 Chloride 97 - 105 mmol/L 102 CO2 22 - 30 mmol/L 21 (L) Anion Gap 9 - 18 mmol/L 13 eGFR >=60 mL/min/1.73m 52 (L) d Dimer <500 ng/mL FEU 1,730 (H) D Dimer Age-related Cutoff ng/mL FEU 760 Magnesium 1.7 - 2.3 mg/dL 1.8 Troponin T 0.000 - 0.029 ng/mL 0.014 NT Pro BNP <450 pg/mL 6,576 (H) COVID 19 Result Not Detected SARS-CoV-2 (Agent of COVID-19) Not Detected by RT- PCR or equivalent method. 03/19/2022 CXR: perihilar haziness and some fullness in the pulmonary vascularity, poss CHF, moderate cardiomegaly, moderately enlarged pulm vascularity 03/19/2022 US LLE + chronic DVT, no acute 03/19/2022 CT Chest WO IVCON: No CT evidence of pulmonary embolism. Nondiagnostic regions of segmental and subsegmental pulmonary arteries Mediastinal and bilateral hilar adenopathy, possibly reactive. Clinical correlation and consideration to 3 month follow-up recommended 5-6 mm right lower lobe nodule. 3-6 month follow-up recommended. Trace left and small right pleural effusions 2.5 cm mass superior pole right kidney, concerning for neoplasm. Groundglass density anterior right lung, possible inflammation/infection Areas of mosaic attenuation, suggesting small airways/small vessels disease Dilated ascending aorta 4.5 cm. Biatrial enlargement. Findings of right heart dysfunction. Coronary artery calcifications Principal Problem (Resolved): Acute on chronic systolic heart failure ([facility]) Active Problems: History of prosthetic aortic valve replacement Aortic prosthetic valve regurgitation Pedro aneurysm of anterior communicating artery Right renal mass Iron deficiency anemia Hypomagnesemia SSS (sick sinus syndrome) ([facility]) Type 2 diabetes mellitus with diabetic peripheral angiopathy without gangrene, without long-term current use of insulin ([facility]) Longstanding persistent atrial fibrillation ([facility]) S/P placement of cardiac pacemaker CKD (chronic kidney disease) Platelet inhibition due to Plavix Diverticulosis Resolved Problems: Anemia due to GI blood loss Hospital course from discharge summary: Berta Sanches is a 76 year old female presented with past medical history of chronic heart failure reduced ejection fraction, LVEF 38%, moderate to severely decreased right ventricular systolic function, longstanding persistent atrial fibrillation anticoagulated with Plavix and aspirin, status post ablation, history of cardioversion, status post watchman device insertion, permanent pacemaker implant, status post aortic valve replacement with a bioprosthetic valve, moderate to severe mitral insufficiency, mild to moderate tricuspid insufficiency, moderate aortic insufficiency, small pericardial effusion, hyperlipidemia, chronic left lower extremity DVT, very aneurysm of brain, right renal mass(noted in 2019) , iron deficiency anemia disease (noted in 2019), stage IIIb kidney disease, GI blood loss, and type 2 diabetes with diet control presents having taken a trip to [place] and having had no control over the food served for the amount of salt in it and had progressive swelling in her legs and then subsequently shortness of breath developing. A right 2.5 cm superior pole the rightkidney mass was found concerning for neoplasm that had been noted as long ago as June 2019. On return to [facility], she had presented to the emergency department and found to be in heart failure. She is seen by cardiology in consultation and diuresis started. She has multiple comorbidities to be addressed. Replace magnesium and potassium and repeated iron studies. She did have transfusions in February. Lab summary: Component Latest Ref Rng & Units 03/19/2022 03/20/2022 03/21/2022 03/22/2022 Protein, Total 6.3 - 8.0 g/dL 6.7 6.3 6.0 (L) 6.3 Albumin 3.9 - 4.9 g/dL 3.5 (L) 3.6 (L) 3.6 (L) 3.6 (L) Calcium 8.5 - 10.2 mg/dL 9.0 9.1 9.2 9.4 Bilirubin, Total 0.2 - 1.3 mg/dL 0.6 0.4 0.5 0.6 Alkaline Phosphatase 34 - 123 U/L 108 96 92 99 AST 13 - 35 U/L 34 16 15 15 ALT 7 - 38 U/L 15 13 13 12 Glucose 74 - 99 mg/dL 248 (H) 160 (H) 143 (H) 127 (H) BUN 7 - 21 mg/dL 21 21 24 (H) 21 Creatinine 0.58 - 0.96 mg/dL 1.10 (H) 1.37 (H) 1.26 (H) 1.21 (H) Sodium 136 - 144 mmol/L 136 139 138 138 Potassium 3.7 - 5.1 mmol/L 4.2 3.9 4.3 4.0 Chloride 97 - 105 mmol/L 102 102 100 101 CO2 22 - 30 mmol/L 21 (L) 29 26 24 Anion Gap 9 - 18 mmol/L 13 8 (L) 12 13 eGFR >=60 mL/min/1.73m 52 (L) 40 (L) 44 (L) 47 (L) Magnesium 1.7 - 2.3 mg/dL 1.8 1.8 2.1 Haptoglobin 31 - 238 mg/dL 123 123 LD 135 - 214 U/L 242 (H) 251 (H) Vitamin D 25 Hydroxy 31.0 - 80.0 ng/mL 36.5 PTH, Intact 15 - 65 pg/mL 60 Component Latest Ref Rng & Units 03/22/2022 Albumin 3.37 - 4.23 g/dL 3.05 (L) Alpha 1 Globulin 0.18 - 0.31 g/dL 0.28 Alpha 2 Globulin 0.52 - 0.97 g/dL 0.72 Beta Globulin 0.84 - 1.36 g/dL 1.06 Gamma Globulin 0.70 - 1.44 g/dL 0.88 Interpretation (Prot Electro) No definitive M protein is identified on protein electrophoresis. No definitive M protein is identified on protein electrophoresis. M-Protein Location M-Protein Concentration <=0.00 g/dL 0.00 SPE Staff Review Reviewed by Wlater Bates MD, Ph.D ([id number]) Protein, Total 6.3 - 8.0 g/dL 6.0 (L) Component Latest Ref Rng & Units 02/27/2022 03/20/2022 03/21/2022 03/22/2022 WBC 3.70 - 11.00 k/uL 9.41 8.29 9.12 8.16 RBC 3.90 - 5.20 m/uL 3.42 (L) 3.12 (L) 3.10 (L) 3.34 (L) Hemoglobin 11.5 - 15.5 g/dL 8.7 (L) 7.7 (L) 7.8 (L) 8.2 (L) Hematocrit 36.0 - 46.0 % 28.6 (L) 25.8 (L) 25.7 (L) 27.4 (L) MCV 80.0 - 100.0 fL 83.6 82.7 82.9 82.0 MCH 26.0 - 34.0 pg 25.4 (L) 24.7 (L) 25.2 (L) 24.6 (L) MCHC 30.5 - 36.0 g/dL 30.4 (L) 29.8 (L) 30.4 (L) 29.9 (L) RDW-CV 11.5 - 15.0 % 20.7 (H) 20.5 (H) 20.0 (H) 19.9 (H) Platelet Count 150 - 400 k/uL 242 248 250 276 MPV 9.0 - 12.7 fL 10.4 9.8 9.6 9.8 Absolute nRBC <0.01 k/uL <0.01 <0.01 <0.01 <0.01 Component Latest Ref Rng & Units 12/11/2020 12/15/2021 03/20/2022 Hemoglobin A1C 4.3 - 5.6 % 7.0 (H) 7.1 (H) 6.4 (H) Estimated Average Glucose mg/dL 154 157 137 EK03/19/2022 A. fib with rapid ventricular response significant change from 03/03/2022 ECHO: 03/03/2022 - The left ventricle is normal in size. Left ventricular systolic function is moderately decreased.EF = 38 5% (visual st.) - The right ventricle is normal in size. Right ventricular systolic function is moderately to severely decreased. - The left atrial cavity is dilated. Small Watchman violet-device leak measuring 2mm (clip 14). - The right atrial cavity is dilated. - There is moderately severe (3+) mitral valve regurgitation due to restricted leaflet motion. Mitral Pk/Mn gradient of 16/8 mmHg at 111 bpm (prior 15/8 mmHg at 96 bpm). - [employer]ife prosthetic aortic valve (size #28). There is moderate (2+ - 3+) aortic valve regurgitation. Consultants: Dr. Dodge for cardiology Dr. Houser for nephrology Transitions of Care Critical Issues: LAB MONITORING NEEDED: Labs in 2 weeks for nephrology order is in rn clinical resource FOLLOW-UP: GI in 2 days scheduled, lung nodule clinic to be scheduled, urology to be scheduled, and nephrology in 4 to 6 weeks to be scheduled LABS AND PROCEDURES PENDING AT DISCHARGE: No pending results. INCIDENTAL OR ACTIONABLE FINDING (Last Refresh: 03/22/2022 2:27 PM) Test(s): CT CHEST W IVCON PE FOLLOW-UP APPOINTMENTS ALREADY SCHEDULED WITH A [facility] PROVIDER: Future Appointments Date Time Provider Department Center 03/30/2022 8:40 AM Carla Burdick MD [facility] 04/14/2022 10:00 AM Albin Gu APRN.[employer] [facility] ALLERGIES ALLERGIES Allergen Reactions Protamine Anaphylaxis Had acute drop in blood pressure and end tidal Co2 shortly after administration during watchman procedure on 01/12/22, treated with 60 mcg epinephrine and 10 mg dexamethasone with good response. DISCHARGE MEDICATION: Current Discharge Medication List START taking these medications lisinopril (ZESTRIL, PRINIVIL) 5 mg Take 5 mg by mouth once daily. Qty: 30 tablet Refills: 0 CONTINUE these medications which have CHANGED !! furosemide (LASIX) 40 mg Take 40 mg by mouth once daily. Qty: 5 tablet Refills: 0 !! furosemide (LASIX) 20 mg Take 20 mg by mouth once daily. Qty: 90 tablet Refills: 3 Associated Diagnoses:Primary hypertension magnesium oxide (MAG-OX) 400 mg Take 400 mg by mouth daily at bedtime. Qty: 30 tablet Refills: 0 metoprolol succinate ER (TOPROL XL) 50 mg Take 50 mg by mouth once daily. Qty: 90 tablet Refills: 3 Associated Diagnoses:Primary hypertension !! - Potential duplicate medications found. Please discuss with provider. CONTINUE these medications which have NOT CHANGED clopidogrel (PLAVIX) 75 mg Take 75 mg by mouth once daily. <span hidden class="[email or web address]"></span>Only for 6 months.After that stay on ASA 81 mg daily, Qty: 90 tablet Refills: 1 aspirin 81 mg Take 81 mg by mouth once daily. Qty: 30 tablet Refills: 11 omeprazole (PriLOSEC) 40 mg Take 40 mg by mouth once daily. Qty: 90 capsule Refills: 1 Associated Diagnoses:Heme + stool; Epigastric pain; Blood loss anemia simvastatin (ZOCOR) 20 mg Take 20 mg by mouth daily at bedtime. Qty: 90 tablet Refills: 3 Associated Diagnoses:Hyperlipidemia with target LDL less than 70 UBIDECARENONE (COQ-10 ORAL) 1 capsule Take 1 capsule by mouth once daily. sodium chloride 0.9 % (flush) (BD POSIFLUSH) 2-10 mL Inject 2-10 mL intravenously as directed. <span hidden class="[email or web address]"></span>For Echoprocedure Qty: 10 mL Refills: 0 Associated Diagnoses:Longstanding persistent atrial fibrillation (HCC); Presence of Watchman left atrial appendage closure device acetaminophen (TYLENOL) 500-1,000 mg Take 500-1,000 mg by mouth every 6 hours as needed. Cholecalciferol-Soy Isoflavone 1 capsule Take 1 capsule by mouth once daily. blood sugar diagnostic (BLOOD GLUCOSE TEST) test strip Test blood sugar(s) 2 times daily. Dx: Type 2 DM - Controlled E11.9 Insulin: No Qty: 50 Strip Refills: 11 Associated Diagnoses:Type 2 diabetes mellitus without complication, without long-term current use of insulin (HCC) STOP taking these medications amLODIPine (NORVASC) 5 mg Comments: Reason for Stopping: Current status: SOB with minimal exertion. No orthopnea. No chest pain. Has had some episodes with heart racing. Better 03/30/2022 Dr. Burdick reviewed: HISTORIES FAMILY HISTORY Problem Relation Age of Onset other (Heart Problems) Mother other (myocardial infarction) Mother other (cardiovascular disease) Mother other (Heart Attack) Father other (cardiovascular disease) Father Diabetes Maternal Grandmother PAST MEDICAL HISTORY Diagnosis Date Abnormal colonoscopy [...] surgical removal Chronic mastoiditis of left side Diabetes (HCC) Diabetes (HCC) GERD (gastroesophageal reflux disease) H/O: GI bleed High blood pressure Hypercholesterolemia Mastoiditis of right side s/p mastoidectomy, complete opacitificationright tympanic cavity and mastoid cells on CT 06/01/16 Mitral valve regurgitation Pacemaker 10/21/[address] TRELL VERNON [id number] pulse generator, his bundle lead, right atrial lead Peripheral arterial disease (HCC) Rheumatic fever Steatosis, liver 03/26/2014 fatty liver on US. 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 Lua PACEMAKER 10/2019 PART. HYSTERECTOMY W/WO RMVL OVARIES/TUBES 1974 h/o cervical cancer ovaries remain PAST SURGICAL HISTORY OF 1996 Aortic valve repair, Dr. Apodaca PAST SURGICAL HISTORY OF 2001 [address] Beltrán, [facility] PAST SURGICAL HISTORY OF 2016 clipping and coil for brain aneurysm Social History Tobacco Use Smoking status: Former Types: Cigarettes Quit date: 02/11/1970 Years since quittin.1 Smokeless tobacco: Never Vaping Use Vaping Use: Never used Substance Use Topics Alcohol use: Yes Alcohol/week: 1.0 standard drink Types: 1 Glasses of Wine (5oz) per week Comment: red wine 2-3 times a week- occasional Drug use: No ACTIVE PROBLEM LIST History of Prosthetic Aortic Valve Replacement Aortic Prosthetic Valve Regurgitation Paroxysmal Atrial Fibrillation (Hcc) Htn (Hypertension) Hyperlipidemia With Target Ldl Less Than 70 Gerd (Gastroesophageal Reflux Disease) Chronic Anticoagulation Fatigue Sob (Shortness of Breath) H/O Rheumatic Heart Disease Basal Cell Carcinoma Left Shoulder Pain Intracranial Aneurysm Bilateral Carotid Artery Stenosis Osteopenia of Left Lower Leg Mastoiditis of Right Side Chronic Mastoiditis of Left Side Personal History of Colonic Polyps History of Ischemic Colitis Adenomatous Polyp of Descending Colon Skin Cancer Pad (Peripheral Artery Disease) (Hcc) Pedro Aneurysm of Anterior Communicating Artery Stage 3 Chronic Renal Impairment Associated With Type 2 Diabetes Mellitus (Hcc) History of Pulmonary Embolism Ascending Aorta Dilatation (Hcc) Chronic Bilateral Pleural Effusions Colovesical Fistula Right Renal Mass Diverticulitis Large Intestine W/O Perforation Or Abscess W/O Bleeding Renal Cell Carcinoma, Right (Hcc) Iron Deficiency Anemia Hypomagnesemia Gastrointestinal Hemorrhage Associated With Acute Gastritis Esophageal Stenosis Dilated Cardiomyopathy (Hcc) Chronic Diastolic Congestive Heart Failure (Hcc) Sss (Sick Sinus Syndrome) (Hcc) Duodenal Ulcer Type 2 Diabetes Mellitus With Diabetic Peripheral Angiopathy Without Gangrene, Without Long-Term Current Use of Insulin (Hcc) Longstanding Persistent Atrial Fibrillation (Hcc) S/P Placement of Cardiac Pacemaker Ckd (Chronic Kidney Disease) Platelet Inhibition Due to Plavix Diverticulosis Lung Nodule, Solitary Red Blood Cell Antibody Positive Current Outpatient Medications Medication Sig Dispense Refill metoprolol succinate ER (TOPROL XL) 50 mg 24 hr tablet Take 1 tablet by mouth twice daily. 60 tablet 11 losartan (COZAAR) 25 mg tablet Take 1 tablet by mouth once daily. 30 tablet 11 furosemide (LASIX) 40 mg tablet Take 1 tablet by mouth once daily for 5 days. 5 tablet 0 furosemide (LASIX) 20 mg tablet Take 1 tablet by mouth once daily. 90 tablet 3 magnesium oxide (MAG-OX) 400 mg (241.3 mg magnesium) tablet Take 1 tablet by mouth daily at bedtime. 30 tablet 0 clopidogrel (PLAVIX) 75 mg tablet Take 1 tablet by mouth once daily. Only for 6 months. After that stay on ASA 81 mg daily, 90 tablet 1 sodium chloride 0.9 %, flush, (BD POSIFLUSH) syringe Inject 2-10 mL intravenously as directed. For Echo procedure 10 mL 0 aspirin 81 mg chewable tablet Take 1 tablet by mouth once daily. 30 tablet 11 omeprazole (PRILOSEC) 40 mg capsule Take 1 capsule by mouth once daily. 90 capsule 1 simvastatin (ZOCOR) 20 mg tablet Take 1 tablet by mouth daily at bedtime. 90 tablet 3 acetaminophen (TYLENOL) 500 mg tablet Take 1-2 tablets by mouth every 6 hours as needed. Cholecalciferol-Soy Isoflavone 2,000-64 unit-mg tab Take 1 capsule by mouth once daily. blood sugar diagnostic (BLOOD GLUCOSE TEST) test strip Test blood sugar(s) 2 times daily. Dx: Type 2 DM - Controlled E11.9 Insulin: No 50 Strip 11 UBIDECARENONE (COQ-10 ORAL) Take 1 capsule by mouth once daily. No current facility-administered medications for this visit. Facility-Administered Medications Ordered in Other Visits Medication Dose Route Frequency Provider Last Rate Last Admin lidocaine viscous 2 % (XYLOCAINE) X (OR/PROCEDURE) PRSangeeta Gustafson MD 15 mL at 03/03/22 1149 benzocaine 20% (TOPEX) X (OR/PROCEDURE) PRSangeeta Gustafson MD 2 [place] at 03/03/22 1149 fentaNYL 50 mcg/mL injection (SUBLIMAZE) X (OR/PROCEDURE) PRSangeeta Gustafson MD 25 mcg at 03/03/22 1211 midazolam (PF) injection (VERSED) X (OR/PROCEDURE) PRSangeeta Gustafson MD 1 mg at 03/03/22 1211 BP CONTROLLED (<130/80) Never done DIABETIC FOOT EXAM due on 01/08/2015 COVID-19 VACCINE(4 - Booster for Pfizer series) due on 05/08/2021 DEPRESSION ASSESSMENT Never done DILATED RETINAL EXAM due on 02/19/2022 INFLUENZA(1) due on 03/05/2022 EXAM: BP 148/72 Pulse 95 Resp 24 Wt 66.7 kg (147 lb) SpO2 99% BMI 26.04 kg/m Pleasant this, frail adult woman in no acute distress. Alert and oriented all spheres. Normal affect and cognition. Speech normal. No deficits to learning or comprehension. Skin warm, dry, fairly pink to lips and nailbeds. Normal turgor. Respirations regular and unlabored. HEENT: NCAT. No scleral icterus or conjunctival injection. TM's clear. Nose and oropharynx free from injection or lesion. Oral membranes moist and pink. No cervical lymph nodes. Thyroid non-tender, no masses, or enlargement. Carotids pulses 2+/4+ without bruits. No JVD with HOB at 30 degrees. Chest is normal shape. Lungs are clear to all rosas with good air exchange through out, mild dry crackles in left base. HRRR with wheezing end systolic murmur, no gallop. No lifts, heaves, or rubs. Extrem: no clubbing or cyanosis. Edema: 1/4+ pitting lower legs. . Extremities are warm and pink with prompt capillary refill. Feet: Shoes and socks removed, Are you having foot pain aminta, No deformities, ulcers, calluses, normal distal pulses, and sensitive to 10 gm monofilament ASSESSMENT/PLAN: 1. Hospital discharge follow-up - ICD9: V67.59, ICD10: Z09 (primary diagnosis) Medication reconciliation completed. No discharge tasks. Has completed f/u with cardiology: 2. H/O rheumatic heart disease - ICD9: V12.59, ICD10: Z86.79 3. Aortic prosthetic valve regurgitation, subsequent encounter - ICD9: V58.89, ICD10: T82.897D stable 4. Acute combined systolic and diastolic congestive heart failure (HCC) - ICD9: 428.41, 428.0, ICD10: I50.41 Persistent mild sx 5. SSS (sick sinus syndrome) (HCC) - ICD9: 427.81, ICD10: I49.5 6. Atrial fibrillation, unspecified type (HCC) - ICD9: 427.31, ICD10: I48.91 7. Presence of Watchman left atrial appendage closure device - ICD9: V45.09, ICD10: Z95.818 8. Platelet inhibition due to Plavix - ICD9: V58.63, ICD10: Z79.02 9. S/P placement of cardiac pacemaker - ICD9: V45.01, ICD10: Z95.0 Stable of coumadin. Controlled heart rates on increased metoprolol 10. Dilated cardiomyopathy (HCC) - ICD9: 425.4, ICD10: I42.0 Recent losartan addition: continues to have SOB especially with activity, reduced leg edema but still present. Poor exercise tolerance. 11. Ascending aorta dilatation (HCC) - ICD9: 447.71, ICD10: I77.810 Followed by cardiology. 12. Primary hypertension - ICD9: 401.9, ICD10: I10 Borderline control 14. Lung nodule, solitary - ICD9: 793.11, ICD10: R91.1 Recheck 3 months 15. Stage 3b chronic kidney disease (HCC) - ICD9: 585.3, ICD10: N18.32 Re check lab 4 weeks - BASIC METABOLIC PNL 16. Type 2 diabetes mellitus with diabetic peripheral angiopathy without gangrene, without long-term current use of insulin (HCC) - ICD9: 250.70, 443.81, ICD10: E11.51 Controlled. - Continue current medications 17. Renal mass, right - ICD9: 593.9, ICD10: N28.89 Declined work up in last 2 years due to stability and fatigue with health issues. Has agreed to see urology for work up but not certain about allowing bx/ surgery. 18. Iron deficiency anemia due to chronic blood loss - ICD9: 280.0, ICD10: D50.0 Will forward consult to Dr. Mujica. - CONSULT TO HEMATOLOGY - CBC + DIFF - IRON + TIBC - FERRITIN BLD Some of this note may have been copied and pasted for the purpose of history context and comparison. Doreen Le PA-C documented in this encounterLake[facility]09-26-2022 Miscellaneous Notes* Telephone Encounter - Sigifredo Rivera LPN - 03/30/2022 10:53 AM EDT TC to pt, appt scheduled with PCP on 04/06 per pt request. Sigifredo Rivera LPN * Telephone Encounter - Droeen Le PA-C - 03/30/2022 6:09 AM EDT Please advise I have reviewed discharge notes. For some reason the attending did not schedule hospital follow up here and it is most important forher to see specialists but we need some kind of hospital follow up in the next 4 -6 weeks. Thanks, Edmund Le PA-C documented in this encounterLakehealth [facility]09-26-2022 Instructions* Patient Instructions* Carla Burdick MD - 03/30/2022 9:13 AM EDT We are increasing the Toprol (Metoprolol succinate) to 50 mg two times per day We are replacing the Lisinopril with Losartan 25 mg once per day Repeat blood work 7-10 days after starting the Losartan documented in this encounterLakehealth [facility]09-26-2022 History of Present illness Narrative* Carla Burdick MD - 03/30/2022 8:40 AM EDT Images from the original note were not included. [facility]OLOG[facility] Cardiology ([facility]) [address] [facility] [id number] OUTPATIENT VISIT DATE 03/30/2022 PRIMARY CARE PHYSICIAN: Doreen Le [address] [place] [address] HISTORY OF PRESENT ILLNESS: Ms. Sanches is a 76 year old woman with a history of remote aortic valve replacement with homograft in 1996 and possible repair of the ascending aorta, hypertension, dyslipidemia, atrial fibrillation with history of pulmonary vein isolation procedures, pacemaker placement recent watchman procedurewho presents for follow-up after hospital admission for congestive heart failure. She had gone on acruise to [place] and developed lower extremity edema and worsening shortness of breath. On return to [place], she had worsening symptoms of weight gain, PND, and orthopnea symptoms. She was seen at [facility] and was treated for acute systolic congestive heart failure. Since hospital discharge, she has been doing well. She has been compliant with her Lasix 20 mg daily. Her weight has been stable. She has not had recurrent symptoms of PND orthopnea. She notices that her heart rate is increasedon home monitoring. She was prescribed lisinopril on hospital discharge. However, she reports that it causes severe GI distress. She stopped taking the lisinopril after 1 week. She has not had chest pain or pressure. Functional capacity is slowly improving. PAST MEDICAL HISTORY Diagnosis Date Abnormal colonoscopy [...] surgical removal Chronic mastoiditis of left side Diabetes (HCC) Diabetes (HCC) GERD (gastroesophageal reflux disease) H/O: GI bleed High blood pressure Hypercholesterolemia Mastoiditis of right side s/p mastoidectomy, complete opacitificationright tympanic cavity and mastoid cells on CT 06/01/16 Mitral valve regurgitation Pacemaker 10/21/[address] TRELL VERNON [id number] pulse generator, his bundle lead, right atrial lead Peripheral arterial disease (HCC) Rheumatic fever Steatosis, liver 03/26/2014 fatty liver on US. 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 Lua PACEMAKER 10/2019 PART. HYSTERECTOMY W/WO RMVL OVARIES/TUBES 1974 h/o cervical cancer ovaries remain PAST SURGICAL HISTORY OF 1996 Aortic valve repair, Dr. Apodaca PAST SURGICAL HISTORY OF 2001 [address] Beltrán, [facility] PAST SURGICAL HISTORY OF 2015 clipping and coil for brain aneurysm SOCIAL HISTORY Social History Tobacco Use Smoking status: Former Types: Cigarettes Quit date: 02/11/1970 Years since quittin.1 Smokeless tobacco: Never Vaping Use Vaping Use: Never used Substance Use Topics Alcohol use: Yes Alcohol/week: 1.0 standard drink Types: 1 Glasses of Wine (5oz) per [...] and 10 mg dexamethasone with good response. MEDICATIONS: furosemide (LASIX) 20 mg tablet^Take 1 tablet by mouth once daily.^Disp: 90 tablet^Rfl: 3 magnesium oxide (MAG-OX) 400 mg (241.3 mg magnesium) tablet^Take 1 tablet by mouth daily at bedtime.^Disp: 30 tablet^Rfl: 0 metoprolol succinate ER (TOPROL XL) 25 mg 24 hr tablet^Take 2 tablets by mouth once daily.^Disp: 90tablet^Rfl: 3 clopidogrel (PLAVIX) 75 mg tablet^Take 1 tablet by mouth once daily. Only for 6 months. After that stay on ASA 81 mg daily,^Disp: 90 tablet^Rfl: 1 sodium chloride 0.9 %, flush, (BD POSIFLUSH) syringe^Inject 2-10 mL intravenously as directed. For Echo procedure^Disp: 10 mL^Rfl: 0 aspirin 81 mg chewable tablet^Take 1 tablet by mouth once daily.^Disp: 30 tablet^Rfl: 11 omeprazole (PRILOSEC) 40 mg capsule^Take 1 capsule by mouth once daily.^Disp: 90 capsule^Rfl: 1 simvastatin (ZOCOR) 20 mg tablet^Take 1 tablet by mouth daily at bedtime.^Disp: 90 tablet^Rfl: 3 acetaminophen (TYLENOL) 500 mg tablet^Take 1-2 tablets by mouth every 6 hours as needed.^Disp: ^Rfl: Cholecalciferol-Soy Isoflavone 2,000-64 unit-mg tab^Take 1 capsule by mouth once daily.^Disp: ^Rfl: UBIDECARENONE (COQ-10 ORAL)^Take 1 capsule by mouth once daily.^Disp: ^Rfl: furosemide (LASIX) 40 mg tablet^Take 1 tablet by mouth once daily for 5 days.^Disp: 5 tablet^Rfl: 0 lisinopril (ZESTRIL, PRINIVIL) 5 mg tablet^Take 1 tablet by mouth once daily.^Disp: 30 tablet^Rfl: 0 blood sugar diagnostic (BLOOD GLUCOSE TEST) test strip^Test blood sugar(s) 2 times daily. Dx: Type 2 DM - Controlled E11.9 Insulin: No^Disp: 50 Strip^Rfl: 11 REVIEW OF SYSTEMS: Review of Systems Constitutional: [...] Psychiatric/Behavioral: Negative for depression. PHYSICAL EXAMINATION: BP 144/64 Pulse 90 Wt 65.3 kg (144 lb) SpO2 100% BMI 25.51 kg/m General: Very pleasant woman sitting appears comfortable [...] right upper sternal border. Extremities: Warm, well-perfused, 1+ pretibial pitting edema left lower extremity. Minimal edema onthe right. Dorsalis pedis and posterior tibial pulses are 2+ and symmetric. CARDIOVASCULAR MEDICINE TESTING: Transesophageal Echo 03/03/2022: - Exam indication: 45d Watchman follow-up - The left ventricle is normal in size. Left ventricular systolic function is moderately decreased. EF = 38 5% (visual est.) - The right ventricle is normal in size. Right ventricular systolic function is moderately to severely decreased. - The left atrial cavity is dilated. Small Watchman violet-device leak measuring 2mm (clip 14). - The [...] - Exam was compared with the prior [facility] echocardiographic exam performed on 01/12/2022. Small 2mm Watchman para-device leak seen. More LV and RV dysfunction reported. Echocardiogram 10/08/2020: CONCLUSIONS: - Technically difficult exam due to body habitus. - Exam indication: Routine surveillance of prosthetic valve (>3yrs) - The left ventricle is moderately dilated. Left ventricular systolic function is normal. EF = 58 5% (2D biplane) Indeterminate left ventricular diastolic dysfunction due to mitral valve surgery. - The right ventricle is normal in size. Right ventricular systolic function is low normal. - The left atrial cavity is severely dilated. - There is moderate (2+) mitral valve regurgitation. Regurgitant orifice area (PISA) is 0.15 cm . - Cryolife prosthetic aortic valve (size #28). [...] There is mild concentric left ventricular hypertrophy. Leftventricular systolic function is normal. EF = 60 5% (2D biplane) Grade II left ventricular diastolic dysfunction. - The right ventricle is normal in size. Right ventricular systolic function is normal. - The left atrial cavity is severely dilated. - There is moderate (2+ - 3+) mitral valve regurgitation. Regurgitant orifice area (PISA) is 0.15 cm . - Cryolife prosthetic aortic valve (size #28). There is mild (1+ - 2+) aortic valve regurgitation. The peak gradient is 47 mmHg, the mean gradient is 23 mmHg nd the dimensionless valve index is 0.32.Prior pk/mn gradients of 24/14 mmHg. - Exam was compared with the prior [facility] echocardiographic exam performed on 10/24/2018, AV gradients higher on today's study. Carotid Ultrasound 10/24/18: IMPRESSION Irregular heart rhythm [...] without evidence of hemodynamically significant stenosis. CT Kidney 02/13/20 IMPRESSION: STABLE 2.2 CM [...] origins with heavily calcified atherosclerotic plaque. DUAL CHAMBER PACEMAKER REMOTE EVALUATION 09/10/2021: LBB in RV port PRESENTING EGM: AFL/FURNITURE FINISHER HELPER BATTERY STATUS: Estimated time remaining to YUE is 12.8 years COUNTERS SINCE 07/15/21: ATRIAL ARRHYTHMIAS: There have been 14 triggered episodes of atrial high rates with EGMs showing AFL. Longest lasting is current episode has been ongoing 7 hours. Combined episodes having going on for 35 hours and clustered on 09/09- 09/10/21. Total time 2.5%. Anticoagulants listed: Xarelto VENTRICULAR ARRHYTHMIAS: There has been 1 short nsVT lasting 3 seconds. LEAD MEASUREMENTS: Sensing is appropriate. Review of the lead impedance trends are normal. OTHER DIAGNOSTICS: Total LBB pacing 1.1%. IMPRESSION: Ms. Sanches is a 76 year old woman with an extensive cardiac history. She had undergone aortic valve replacement 1996 with a homograft and possible repair of the ascending aorta. She informed me that her preoperative cardiac catheterization demonstrated no significant obstructive coronary disease.She has a remote smoking history with a history of significant secondhand smoke exposure. 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 She has been treated for paroxysmal atrial fibrillation and has undergone an ablation procedure. Her atrial fibrillation is now persistent. She has had a recent watchman device placed due to history of GI bleed and intolerance to anticoagulation therapy. She has a dual-chamber pacemaker placement for sinus node dysfunction and chronotropic incompetence. She presents the office for follow-up after recent hospital admission for acute systolic congestive heart failure. PLAN AND RECOMMENDATIONS: 1. History of prosthetic aortic valve replacement - ICD9: V43.3, ICD10: Z95.2 (primary diagnosis) Most recent echocardiogram results were reviewed. Patient with worsening mitral and aortic valve insufficiency. She will need repeat echocardiogram in 6 months. 2. Paroxysmal atrial fibrillation (HCC) - ICD9: 427.31, ICD10: I48.0 Patient with persistent atrial fibrillation. Not a candidate for anticoagulation therapy. Recent watchman procedure completed in January 2022. Patient will be maintained on Plavix for the course of 6 to9 months. Heart rates are adequately controlled on current regimen. I have increased her Toprol to 50 mg twice daily. 3. Ascending aorta dilatation (HCC) - ICD9: 447.71, ICD10: I77.810 4. Chronic diastolic congestive heart failure (HCC) - ICD9: 428.32, 428.0, ICD10: I50.32 Worsening left ventricular function noted on recent echocardiogram. Plan to start losartan 25 mg daily due to recent intolerance to CAMILLE inhibitor. Repeat basic metabolic panel in 7 to 10 days after initiation of therapy. Continue current diuretic therapy Lasix 20 mg daily with increase to 40 mg daily for 3 days as needed for weight gain greater than 2 to 4 pounds in 24 to 48 hours 5. Primary hypertension - ICD9: 401.9, ICD10: I10 - METOPROLOL SUCCINATE ER 50 MG TABLET,EXTENDED RELEASE 24 HR - LOSARTAN 25 MG TABLET - BASIC METABOLIC PNL 6. Hyperlipidemia with target LDL less than 70 - ICD9: 272.4, ICD10: E78.5 Maintained on simvastatin 20 mg daily 7. SSS (sick sinus syndrome) (HCC) - ICD9: 427.81, ICD10: I49.5 8. S/P placement of cardiac pacemaker - ICD9: V45.01, ICD10: Z95.0 9. Bilateral carotid artery stenosis - ICD9: 433.10, 433.30, ICD10: I65.23 Mild disease on most recent carotid ultrasound 2019. Carla Burdick MD documented in this encounterLake[facility]09-17-2022 Miscellaneous Notes* Telephone Encounter - Juan Diego Carroll Jr., MD - 03/21/2022 10:51 AM EDT [place] consult Needs appt with kan in [place] * Telephone Encounter - Juan Diego Carroll Jr., MD - 03/21/2022 10:51 AM EDT ----- Message from Huy Chauhan MD sent at 03/21/2022 9:11 AM EDT ----- Regarding: Renal mass Thank you Mike. Son documented in this encounterLake[facility]09-16-2022 History of Present illness Narrative* Sheridan Cervantes RN - 03/20/2022 8:22 AM EDT TRANSITION CARE MANAGEMENT (TCM) FOLLOW-UP NOTE Provider Action/FYI Chart reviewed. TCM removed name from TEAMS due to [facility] admission 03/19/22 chf. TCM follow up pending hospital discharge disposition. Summary: Pt discharged from [place] on 02/24. 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 Ferguson's office following gallbladder ultrasound demonstrating sludge. Admitted to some black stools but not bloody. Patient had Hgb of 7.2, hem positive stool. Vital signs 98.1 F-79-17-131/42-98%. Exam nonacute. Abdomen nondistended with tender epigastric and right upper quadrant. WBC 9.7-RBC 2.49L-Hgb 7.2L-HCT 20 2.8L-RDW 50 4.4H-PLT 232 with normal differential. CMP notable for sodium 132L, BUN 30 7H, creatinine 1.6H with EGFR 30 2L. GLU 139H. Calcium 8.4L troponin was negative. UA was normal. Blood type is B+. Antibody screen negative. Gallbladder ultrasound: No acute abnormalities, apparent solid nodule in right upper pole of right kidney, CT with contrast or MRII recommended. CT abdomen pelvis: Moderate size hiatal hernia with eccentric soft tissue thickening possibly related to hernia but could not exclude mass, recommended endoscopic or barium swallow to further assess. Solid mass right upper pole and right kidney possibly neoplastic. No evidence of SBO or acute pancreatitis. 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 Chest x-ray: No acute abnormalities. Unable to get beds in local hospital, transferred to [facility]. Anemia due to GI blood loss 10/24/201903/05 Last Assessment & Plan: Assessment & PLAN: See above Renal cell carcinoma 10/24/2019 09/12/2021 Last Assessment & Plan: Currently following with urology (Dr. Wagner) outpatient for routine surveillance imaging MRI kidney on 07/11/19 noting stable 2.2 cm right renal mass No plans for surgical intervention at this time Diverticulitis of large inte farooq with perforation and abscess without bleeding 06/16/2019 09/12/2021 Other chest pain 03/27/2019 09/19/2020 Overview: 03/24/19 CTA chest/ thorax: 1. Small incompletely occluded PE 2nd and 3rd branch right upper lobe PA; 2. Stable cardiac enlargement; Moderate calcification aortic root with 4.5cm fusiform dilatation mid-ascending aorta; 3. Atherosclerotic calcifications with ostial stenosis celiac trunk, SMA, bilateral renal arteries; 4. Small dependent pleural effusions, larger on right, compressive atelectasis posterior lung bases. 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 Wakes up in the middle of the night feeling she has to eat.has a gnawing of the stomach. Routine health maintenance 01/08/201409/12 Overview: Had her feet tested for diabetes, January 2014, patient was Normal, for monofilament, i did not have the lower frequency tuning fork, but it seemed that with the higher one she could not feel the vibration. On January 2014, she needed a mammogram, colonosocpy, and BMD, she want the colonoscopy in the fall. Last Assessment & Plan: She has an appointment for the colonoscopy initial eval coming up, BMD was normal, discussed with the patient. SUMMARY 12/09/2013 12/22/2018 Overview: Htn, HPL, diabetes uncontrolled with hypoglycemia, aortic bioprosthetic valve, on xeralto, with mitral and aortic valves regurgitating, needs Yearly, Echo. Skin cancer , recent excision, Next visit need to do all the preventive measures. PVD and Carotid artery details, endocervical cancer. need to be probed into, got this form her previous records, patient did not mention to us. Carotid artery disease 12/09/2013 Overview: Per her records Type 2 diabetes mellitus wit hout complication, without long-term current use of insulin 11/20/2013 09/12/2021 Overview: 2008; has been well controlled for a while. Metformin caused her diarrhea. Patient had her eyes examined in [place] this year and was told that she had no retinopathy. December 7.5, she has been running around that for the last couple years, didn't take careof he diabetes. Last Assessment & Plan: Last a1c 7.1 on 06/07/19 Not on any home meds at this time (intolerance to metformin in past) Hemoglobin A1C (%) Date Value 10/24/2019 7.0 Follow up with pcp for discussion on initiating therapy documented as of this encounter (statuses as of 03/23/2022) [facility] [facility]09-15-2022 History of Past illness Narrative* Problem Noted Date Resolved Date Acute on chronic systolic heart failure 03/19/2003/22/2022 Melena 02/22/2022 02/24/2022 Acute kidney injury 02/22/2022 02/24/2022 Atrial fibrillation 01/12/2022 03/21/2022 Encounter for support and coordination of transi tion of care 02/15/2021 09/12/2021 Overview: 02/13/[address] Ferguson's office following gallbladder ultrasound demonstrating sludge. Admitted to some black stools but not bloody. Patient had Hgb of 7.2, hem positive stool. Vital signs 98.1 F-79-17-131/42-98%. Exam nonacute. Abdomen nondistended with tender epigastric and right upper quadrant. WBC 9.7-RBC 2.49L-Hgb 7.2L-HCT 20 2.8L-RDW 50 4.4H-PLT 232 with normal differential. CMP notable for sodium 132L, BUN 30 7H, creatinine 1.6H with EGFR 30 2L. GLU 139H. Calcium 8.4L troponin was negative. UA was normal. Blood type is B+. Antibody screen negative. Gallbladder ultrasound: No acute abnormalities, apparent solid nodule in right upper pole of right kidney, CT with contrast or MRII recommended. CT abdomen pelvis: Moderate size hiatal hernia with eccentric soft tissue thickening possibly related to hernia but could not exclude mass, recommended endoscopic or barium swallow to further assess. Solid mass right upper pole and right kidney possibly neoplastic. No evidence of SBO or acute pancreatitis. 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 Chest x-ray: No acute abnormalities. Unable to get beds in local hospital, transferred to [facility]. Anemia due to GI blood loss 10/24/201903/05 Last Assessment & Plan: Assessment & PLAN: See above Renal cell carcinoma 10/24/2019 09/12/2021 Last Assessment & Plan: Currently following with urology (Dr. Wagner) outpatient for routine surveillance imaging MRI kidney on 07/11/19 noting stable 2.2 cm right renal mass No plans for surgical intervention at this time Diverticulitis of large inte farooq with perforation and abscess without bleeding 06/16/2019 09/12/2021 Other chest pain 03/27/2019 09/19/2020 Overview: 03/24/19 CTA chest/ thorax: 1. Small incompletely occluded PE 2nd and 3rd branch right upper lobe PA; 2. Stable cardiac enlargement; Moderate calcification aortic root with 4.5cm fusiform dilatation mid-ascending aorta; 3. Atherosclerotic calcifications with ostial stenosis celiac trunk, SMA, bilateral renal arteries; 4. Small dependent pleural effusions, larger on right, compressive atelectasis posterior lung bases. 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 Wakes up in the middle of the night feeling she has to eat.has a gnawing of the stomach. Routine health maintenance 01/08/201409/12 Overview: Had her feet tested for diabetes, January 2014, patient was Normal, for monofilament, i did not have the lower frequency tuning fork, but it seemed that with the higher one she could not feel the vibration. On January 2014, she needed a mammogram, colonosocpy, and BMD, she want the colonoscopy in the fall. Last Assessment & Plan: She has an appointment for the colonoscopy initial eval coming up, BMD was normal, discussed with the patient. SUMMARY 12/09/2013 12/22/2018 Overview: Htn, HPL, diabetes uncontrolled with hypoglycemia, aortic bioprosthetic valve, on xeralto, with mitral and aortic valves regurgitating, needs Yearly, Echo. Skin cancer , recent excision, Next visit need to do all the preventive measures. PVD and Carotid artery details, endocervical cancer. need to be probed into, got this form her previous records, patient did not mention to us. Carotid artery disease 12/09/2013 2 Overview: Per her records Type 2 diabetes mellitus wit hout complication, without long-term current use of insulin 11/20/2013 09/12/2021 Overview: 2008; has been well controlled for a while. Metformin caused her diarrhea. Patient had her eyes examined in [place] this year and was told that she had no retinopathy. December 09.5, she has been running around that for the last couple years, didn't take careof he diabetes. Last Assessment & Plan: Last a1c 7.1 on 06/07/19 Not on any home meds at this time (intolerance to metformin in past) Hemoglobin A1C (%) Date Value 10/24/2019 7.0 Follow up with pcp for discussion on initiating therapy documented as of this encounter (statuses as of 03/28/2022) [facility]09-15-2022 History of Past illness Narrative* Problem Noted Date Resolved Date Acute on chronic systolic heart failure 03/19/20 22 03/22/2022 Melena 02/22/2022 02/24/2022 Acute kidney injury 02/22/2022 02/24/2022 Atrial fibrillation 01/12/2022 03/21/2022 Encounter for support and coordination of transi tion of care 02/15/2021 09/12/2021 Overview: 02/13/[address] Ferguson's office following gallbladder ultrasound demonstrating sludge. Admitted to some black stools but not bloody. Patient had Hgb of 7.2, hem positive stool. Vital signs 98.1 F-79-17-131/42-98%. Exam nonacute. Abdomen nondistended with tender epigastric and right upper quadrant. WBC 9.7-RBC 2.49L-Hgb 7.2L-HCT 20 2.8L-RDW 50 4.4H-PLT 232 with normal differential. CMP notable for sodium 132L, BUN 30 7H, creatinine 1.6H with EGFR 30 2L. GLU 139H. Calcium 8.4L troponin was negative. UA was normal. Blood type is B+. Antibody screen negative. Gallbladder ultrasound: No acute abnormalities, apparent solid nodule in right upper pole of right kidney, CT with contrast or MRII recommended. CT abdomen pelvis: Moderate size hiatal hernia with eccentric soft tissue thickening possibly related to hernia but could not exclude mass, recommended endoscopic or barium swallow to further assess. Solid mass right upper pole and right kidney possibly neoplastic. No evidence of SBO or acute pancreatitis. 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 Chest x-ray: No acute abnormalities. Unable to get beds in local hospital, transferred to [facility]. Anemia due to GI blood loss 10/24/201903/05 Last Assessment & Plan: Assessment & PLAN: See above Renal cell carcinoma 10/24/2019 09/12/2021 Last Assessment & Plan: Currently following with urology (Dr. Wagner) outpatient for routine surveillance imaging MRI kidney on 07/11/19 noting stable 2.2 cm right renal mass No plans for surgical intervention at this time Diverticulitis of large inte farooq with perforation and abscess without bleeding 06/16/2019 09/12/2021 Other chest pain 03/27/2019 09/19/2020 Overview: 03/24/19 CTA chest/ thorax: 1. Small incompletely occluded PE 2nd and 3rd branch right upper lobe PA; 2. Stable cardiac enlargement; Moderate calcification aortic root with 4.5cm fusiform dilatation mid-ascending aorta; 3. Atherosclerotic calcifications with ostial stenosis celiac trunk, SMA, bilateral renal arteries; 4. Small dependent pleural effusions, larger on right, compressive atelectasis posterior lung bases. 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 Wakes up in the middle of the night feeling she has to eat.has a gnawing of the stomach. Routine health maintenance 01/08/201409/12 Overview: Had her feet tested for diabetes, January 2014, patient was Normal, for monofilament, i did not have the lower frequency tuning fork, but it seemed that with the higher one she could not feel the vibration. On January 2014, she needed a mammogram, colonosocpy, and BMD, she want the colonoscopy in the fall. Last Assessment & Plan: She has an appointment for the colonoscopy initial eval coming up, BMD was normal, discussed with the patient. SUMMARY 12/09/2013 12/22/2018 Overview: Htn, HPL, diabetes uncontrolled with hypoglycemia, aortic bioprosthetic valve, on xeralto, with mitral and aortic valves regurgitating, needs Yearly, Echo. Skin cancer , recent excision, Next visit need to do all the preventive measures. PVD and Carotid artery details, endocervical cancer. need to be probed into, got this form her previous records, patient did not mention to us. Carotid artery disease 12/09/2013 Overview: Per her records Type 2 diabetes mellitus wit hout complication, without long-term current use of insulin 11/20/2013 09/12/2021 Overview: 2008; has been well controlled for a while. Metformin caused her diarrhea. Patient had her eyes examined in [place] this year and was told that she had no retinopathy. December 7.5, she has been running around that for the last couple years, didn't take careof he diabetes. Last Assessment & Plan: Last a1c 7.1 on 06/07/19 Not on any home meds at this time (intolerance to metformin in past) Hemoglobin A1C (%) Date Value 10/24/2019 7.0 Follow up with pcp for discussion on initiating therapy documented as of this encounter (statuses as of 03/30/2022) [facility]09-15-2022 History of Past illness Narrative* Problem Noted Date Resolved Date Acute on chronic systolic heart failure 03/19/20 22 03/22/2022 Melena 02/22/2022 02/24/2022 Acute kidney injury 02/22/2022 02/24/2022 Atrial fibrillation 01/12/2022 03/21/2022 Encounter for support and coordination of transi tion of care 02/15/2021 09/12/2021 Overview: 02/13/[address] Ferguson's office following gallbladder ultrasound demonstrating sludge. Admitted to some black stools but not bloody. Patient had Hgb of 7.2, hem positive stool. Vital signs 98.1 F-79-17-131/42-98%. Exam nonacute. Abdomen nondistended with tender epigastric and right upper quadrant. WBC 9.7-RBC 2.49L-Hgb 7.2L-HCT 20 2.8L-RDW 50 4.4H-PLT 232 with normal differential. CMP notable for sodium 132L, BUN 30 7H, creatinine 1.6H with EGFR 30 2L. GLU 139H. Calcium 8.4L troponin was negative. UA was normal. Blood type is B+. Antibody screen negative. Gallbladder ultrasound: No acute abnormalities, apparent solid nodule in right upper pole of right kidney, CT with contrast or MRII recommended. CT abdomen pelvis: Moderate size hiatal hernia with eccentric soft tissue thickening possibly related to hernia but could not exclude mass, recommended endoscopic or barium swallow to further assess. Solid mass right upper pole and right kidney possibly neoplastic. No evidence of SBO or acute pancreatitis. 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 Chest x-ray: No acute abnormalities. Unable to get beds in local hospital, transferred to [facility]. Anemia due to GI blood loss 10/24/201903/05 Last Assessment & Plan: Assessment & PLAN: See above Renal cell carcinoma 10/24/2019 09/12/2021 Last Assessment & Plan: Currently following with urology (Dr. Wagner) outpatient for routine surveillance imaging MRI kidney on 07/11/19 noting stable 2.2 cm right renal mass No plans for surgical intervention at this time Diverticulitis of large inte farooq with perforation and abscess without bleeding 06/16/2019 09/12/2021 Other chest pain 03/27/2019 09/19/2020 Overview: 03/24/19 CTA chest/ thorax: 1. Small incompletely occluded PE 2nd and 3rd branch right upper lobe PA; 2. Stable cardiac enlargement; Moderate calcification aortic root with 4.5cm fusiform dilatation mid-ascending aorta; 3. Atherosclerotic calcifications with ostial stenosis celiac trunk, SMA, bilateral renal arteries; 4. Small dependent pleural effusions, larger on right, compressive atelectasis posterior lung bases. 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 Wakes up in the middle of the night feeling she has to eat.has a gnawing of the stomach. Routine health maintenance 01/08/201409/12 Overview: Had her feet tested for diabetes, January 2014, patient was Normal, for monofilament, i did not have the lower frequency tuning fork, but it seemed that with the higher one she could not feel the vibration. On January 2014, she needed a mammogram, colonosocpy, and BMD, she want the colonoscopy in the fall. Last Assessment & Plan: She has an appointment for the colonoscopy initial eval coming up, BMD was normal, discussed with the patient. SUMMARY 12/09/2013 12/22/2018 Overview: Htn, HPL, diabetes uncontrolled with hypoglycemia, aortic bioprosthetic valve, on xeralto, with mitral and aortic valves regurgitating, needs Yearly, Echo. Skin cancer , recent excision, Next visit need to do all the preventive measures. PVD and Carotid artery details, endocervical cancer. need to be probed into, got this form her previous records, patient did not mention to us. Carotid artery disease 12/09/2013 Overview: Per her records Type 2 diabetes mellitus wit hout complication, without long-term current use of insulin 11/20/2013 09/12/2021 Overview: 2008; has been well controlled for a while. Metformin caused her diarrhea. Patient had her eyes examined in [place] this year and was told that she had no retinopathy. December 09., she has been running around that for the last couple years, didn't take careof he diabetes. Last Assessment & Plan: Last a1c 7.1 on 06/07/19 Not on any home meds at this time (intolerance to metformin in past) Hemoglobin A1C (%) Date Value 10/24/2019 7.0 Follow up with pcp for discussion on initiating therapy documented as of this encounter (statuses as of 03/30/2022) [facility]09-15-2022 History of Past illness Narrative* Problem Noted Date Resolved Date Acute on chronic systolic heart failure 03/19/20 22 03/22/2022 Melena 02/22/2022 02/24/2022 Acute kidney injury 02/22/2022 02/24/2022 Atrial fibrillation 01/12/2022 03/21/2022 Encounter for support and coordination of transi tion of care 02/15/2021 09/12/2021 Overview: 02/13/[address] Ferguson's office following gallbladder ultrasound demonstrating sludge. Admitted to some black stools but not bloody. Patient had Hgb of 7.2, hem positive stool. Vital signs 98.1 F-79-17-131/42-98%. Exam nonacute. Abdomen nondistended with tender epigastric and right upper quadrant. WBC 9.7-RBC 2.49L-Hgb 7.2L-HCT 20 2.8L-RDW 50 4.4H-PLT 232 with normal differential. CMP notable for sodium 132L, BUN 30 7H, creatinine 1.6H with EGFR 30 2L. GLU 139H. Calcium 8.4L troponin was negative. UA was normal. Blood type is B+. Antibody screen negative. Gallbladder ultrasound: No acute abnormalities, apparent solid nodule in right upper pole of right kidney, CT with contrast or MRII recommended. CT abdomen pelvis: Moderate size hiatal hernia with eccentric soft tissue thickening possibly related to hernia but could not exclude mass, recommended endoscopic or barium swallow to further assess. Solid mass right upper pole and right kidney possibly neoplastic. No evidence of SBO or acute pancreatitis. 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 Chest x-ray: No acute abnormalities. Unable to get beds in local hospital, transferred to [facility]. Anemia due to GI blood loss 10/24/201903/05 Last Assessment & Plan: Assessment & PLAN: See above Renal cell carcinoma 10/24/2019 09/12/2021 Last Assessment & Plan: Currently following with urology (Dr. Wagner) outpatient for routine surveillance imaging MRI kidney on 07/11/19 noting stable 2.2 cm right renal mass No plans for surgical intervention at this time Diverticulitis of large inte farooq with perforation and abscess without bleeding 06/16/2019 09/12/2021 Other chest pain 03/27/2019 09/19/2020 Overview: 03/24/19 CTA chest/ thorax: 1. Small incompletely occluded PE 2nd and 3rd branch right upper lobe PA; 2. Stable cardiac enlargement; Moderate calcification aortic root with 4.5cm fusiform dilatation mid-ascending aorta; 3. Atherosclerotic calcifications with ostial stenosis celiac trunk, SMA, bilateral renal arteries; 4. Small dependent pleural effusions, larger on right, compressive atelectasis posterior lung bases. 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 Wakes up in the middle of the night feeling she has to eat.has a gnawing of the stomach. Routine health maintenance 01/08/201409/12 Overview: Had her feet tested for diabetes, January 2014, patient was Normal, for monofilament, i did not have the lower frequency tuning fork, but it seemed that with the higher one she could not feel the vibration. On January 2014, she needed a mammogram, colonosocpy, and BMD, she want the colonoscopy in the fall. Last Assessment & Plan: She has an appointment for the colonoscopy initial eval coming up, BMD was normal, discussed with the patient. SUMMARY 12/09/2013 12/22/2018 Overview: Htn, HPL, diabetes uncontrolled with hypoglycemia, aortic bioprosthetic valve, on xeralto, with mitral and aortic valves regurgitating, needs Yearly, Echo. Skin cancer , recent excision, Next visit need to do all the preventive measures. PVD and Carotid artery details, endocervical cancer. need to be probed into, got this form her previous records, patient did not mention to us. Carotid artery disease 12/09/2013 2 Overview: Per her records Type 2 diabetes mellitus wit hout complication, without long-term current use of insulin 11/20/2013 09/12/2021 Overview: 2008; has been well controlled for a while. Metformin caused her diarrhea. Patient had her eyes examined in [place] this year and was told that she had no retinopathy. December 7.5, she has been running around that for the last couple years, didn't take careof he diabetes. Last Assessment & Plan: Last a1c 7.1 on 06/07/19 Not on any home meds at this time (intolerance to metformin in past) Hemoglobin A1C (%) Date Value 10/24/2019 7.0 Follow up with pcp for discussion on initiating therapy documented as of this encounter (statuses as of 04/06/2022) [facility]09-15-2022 History of Past illness Narrative* Problem Noted Date Resolved Date Acute on chronic systolic heart failure 03/19/20 22 03/22/2022 Melena 02/22/2022 02/24/2022 Acute kidney injury 02/22/2022 02/24/2022 Atrial fibrillation 01/12/2022 03/21/2022 Encounter for support and coordination of transi tion of care 02/15/2021 09/12/2021 Overview: 02/13/[address] Ferguson's office following gallbladder ultrasound demonstrating sludge. Admitted to some black stools but not bloody. Patient had Hgb of 7.2, hem positive stool. Vital signs 98.1 F-79-17-131/42-98%. Exam nonacute. Abdomen nondistended with tender epigastric and right upper quadrant. WBC 9.7-RBC 2.49L-Hgb 7.2L-HCT 20 2.8L-RDW 50 4.4H-PLT 232 with normal differential. CMP notable for sodium 132L, BUN 30 7H, creatinine 1.6H with EGFR 30 2L. GLU 139H. Calcium 8.4L troponin was negative. UA was normal. Blood type is B+. Antibody screen negative. Gallbladder ultrasound: No acute abnormalities, apparent solid nodule in right upper pole of right kidney, CT with contrast or MRII recommended. CT abdomen pelvis: Moderate size hiatal hernia with eccentric soft tissue thickening possibly related to hernia but could not exclude mass, recommended endoscopic or barium swallow to further assess. Solid mass right upper pole and right kidney possibly neoplastic. No evidence of SBO or acute pancreatitis. 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 Chest x-ray: No acute abnormalities. Unable to get beds in local hospital, transferred to [facility]. Anemia due to GI blood loss 10/24/201903/05 Last Assessment & Plan: Assessment & PLAN: See above Renal cell carcinoma 10/24/2019 09/12/2021 Last Assessment & Plan: Currently following with urology (Dr. Wagner) outpatient for routine surveillance imaging MRI kidney on 07/11/19 noting stable 2.2 cm right renal mass No plans for surgical intervention at this time Diverticulitis of large inte farooq with perforation and abscess without bleeding 06/16/2019 09/12/2021 Other chest pain 03/27/2019 09/19/2020 Overview: 03/24/19 CTA chest/ thorax: 1. Small incompletely occluded PE 2nd and 3rd branch right upper lobe PA; 2. Stable cardiac enlargement; Moderate calcification aortic root with 4.5cm fusiform dilatation mid-ascending aorta; 3. Atherosclerotic calcifications with ostial stenosis celiac trunk, SMA, bilateral renal arteries; 4. Small dependent pleural effusions, larger on right, compressive atelectasis posterior lung bases. 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 Wakes up in the middle of the night feeling she has to eat.has a gnawing of the stomach. Routine health maintenance 01/08/201409/12 Overview: Had her feet tested for diabetes, January 2014, patient was Normal, for monofilament, i did not have the lower frequency tuning fork, but it seemed that with the higher one she could not feel the vibration. On January 2014, she needed a mammogram, colonosocpy, and BMD, she want the colonoscopy in the fall. Last Assessment & Plan: She has an appointment for the colonoscopy initial eval coming up, BMD was normal, discussed with the patient. SUMMARY 12/09/2013 12/22/2018 Overview: Htn, HPL, diabetes uncontrolled with hypoglycemia, aortic bioprosthetic valve, on xeralto, with mitral and aortic valves regurgitating, needs Yearly, Echo. Skin cancer , recent excision, Next visit need to do all the preventive measures. PVD and Carotid artery details, endocervical cancer. need to be probed into, got this form her previous records, patient did not mention to us. Carotid artery disease 12/09/2013 Overview: Per her records Type 2 diabetes mellitus wit hout complication, without long-term current use of insulin 11/20/2013 09/12/2021 Overview: 2008; has been well controlled for a while. Metformin caused her diarrhea. Patient had her eyes examined in [place] this year and was told that she had no retinopathy. December 09., she has been running around that for the last couple years, didn't take careof he diabetes. Last Assessment & Plan: Last a1c 7.1 on 06/07/19 Not on any home meds at this time (intolerance to metformin in past) Hemoglobin A1C (%) Date Value 10/24/2019 7.0 Follow up with pcp for discussion on initiating therapy documented as of this encounter (statuses as of 04/07/2022) [facility]09-15-2022 History of Past illness Narrative* Problem Noted Date Resolved Date Acute on chronic systolic heart failure 03/19/20 22 03/22/2022 Melena 02/22/2022 02/24/2022 Acute kidney injury 02/22/2022 02/24/2022 Atrial fibrillation 01/12/2022 03/21/2022 Encounter for support and coordination of transi tion of care 02/15/2021 09/12/2021 Overview: 02/13/[address] Ferguson's office following gallbladder ultrasound demonstrating sludge. Admitted to some black stools but not bloody. Patient had Hgb of 7.2, hem positive stool. Vital signs 98.1 F-79-17-131/42-98%. Exam nonacute. Abdomen nondistended with tender epigastric and right upper quadrant. WBC 9.7-RBC 2.49L-Hgb 7.2L-HCT 20 2.8L-RDW 50 4.4H-PLT 232 with normal differential. CMP notable for sodium 132L, BUN 30 7H, creatinine 1.6H with EGFR 30 2L. GLU 139H. Calcium 8.4L troponin was negative. UA was normal. Blood type is B+. Antibody screen negative. Gallbladder ultrasound: No acute abnormalities, apparent solid nodule in right upper pole of right kidney, CT with contrast or MRII recommended. CT abdomen pelvis: Moderate size hiatal hernia with eccentric soft tissue thickening possibly related to hernia but could not exclude mass, recommended endoscopic or barium swallow to further assess. Solid mass right upper pole and right kidney possibly neoplastic. No evidence of SBO or acute pancreatitis. 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 Chest x-ray: No acute abnormalities. Unable to get beds in local hospital, transferred to [facility]. Anemia due to GI blood loss 10/24/201903/05 Last Assessment & Plan: Assessment & PLAN: See above Renal cell carcinoma 10/24/2019 09/12/2021 Last Assessment & Plan: Currently following with urology (Dr. Wagner) outpatient for routine surveillance imaging MRI kidney on 07/11/19 noting stable 2.2 cm right renal mass No plans for surgical intervention at this time Diverticulitis of large inte farooq with perforation and abscess without bleeding 06/16/2019 09/12/2021 Other chest pain 03/27/2019 09/19/2020 Overview: 03/24/19 CTA chest/ thorax: 1. Small incompletely occluded PE 2nd and 3rd branch right upper lobe PA; 2. Stable cardiac enlargement; Moderate calcification aortic root with 4.5cm fusiform dilatation mid-ascending aorta; 3. Atherosclerotic calcifications with ostial stenosis celiac trunk, SMA, bilateral renal arteries; 4. Small dependent pleural effusions, larger on right, compressive atelectasis posterior lung bases. 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 Wakes up in the middle of the night feeling she has to eat.has a gnawing of the stomach. Routine health maintenance 01/08/201409/12 Overview: Had her feet tested for diabetes, January 2014, patient was Normal, for monofilament, i did not have the lower frequency tuning fork, but it seemed that with the higher one she could not feel the vibration. On January 2014, she needed a mammogram, colonosocpy, and BMD, she want the colonoscopy in the fall. Last Assessment & Plan: She has an appointment for the colonoscopy initial eval coming up, BMD was normal, discussed with the patient. SUMMARY 12/09/2013 12/22/2018 Overview: Htn, HPL, diabetes uncontrolled with hypoglycemia, aortic bioprosthetic valve, on xeralto, with mitral and aortic valves regurgitating, needs Yearly, Echo. Skin cancer , recent excision, Next visit need to do all the preventive measures. PVD and Carotid artery details, endocervical cancer. need to be probed into, got this form her previous records, patient did not mention to us. Carotid artery disease 12/09/2013 Overview: Per her records Type 2 diabetes mellitus wit hout complication, without long-term current use of insulin 11/20/2013 09/12/2021 Overview: 2008; has been well controlled for a while. Metformin caused her diarrhea. Patient had her eyes examined in [place] this year and was told that she had no retinopathy. December 09.5, she has been running around that for the last couple years, didn't take careof he diabetes. Last Assessment & Plan: Last a1c 7.1 on 06/07/19 Not on any home meds at this time (intolerance to metformin in past) Hemoglobin A1C (%) Date Value 10/24/2019 7.0 Follow up with pcp for discussion on initiating therapy documented as of this encounter (statuses as of 04/08/2022) [facility]09-15-2022 History of Past illness Narrative* Problem Noted Date Resolved Date Acute on chronic systolic heart failure 03/19/20 22 03/22/2022 Melena 02/22/2022 02/24/2022 Acute kidney injury 02/22/2022 02/24/2022 Atrial fibrillation 01/12/2022 03/21/2022 Encounter for support and coordination of transi tion of care 02/15/2021 09/12/2021 Overview: 02/13/[address] Ferguson's office following gallbladder ultrasound demonstrating sludge. Admitted to some black stools but not bloody. Patient had Hgb of 7.2, hem positive stool. Vital signs 98.1 F-79-17-131/42-98%. Exam nonacute. Abdomen nondistended with tender epigastric and right upper quadrant. WBC 9.7-RBC 2.49L-Hgb 7.2L-HCT 20 2.8L-RDW 50 4.4H-PLT 232 with normal differential. CMP notable for sodium 132L, BUN 30 7H, creatinine 1.6H with EGFR 30 2L. GLU 139H. Calcium 8.4L troponin was negative. UA was normal. Blood type is B+. Antibody screen negative. Gallbladder ultrasound: No acute abnormalities, apparent solid nodule in right upper pole of right kidney, CT with contrast or MRII recommended. CT abdomen pelvis: Moderate size hiatal hernia with eccentric soft tissue thickening possibly related to hernia but could not exclude mass, recommended endoscopic or barium swallow to further assess. Solid mass right upper pole and right kidney possibly neoplastic. No evidence of SBO or acute pancreatitis. 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 Chest x-ray: No acute abnormalities. Unable to get beds in local hospital, transferred to [facility]. Anemia due to GI blood loss 10/24/201903/05 Last Assessment & Plan: Assessment & PLAN: See above Renal cell carcinoma 10/24/2019 09/12/2021 Last Assessment & Plan: Currently following with urology (Dr. Wagner) outpatient for routine surveillance imaging MRI kidney on 07/11/19 noting stable 2.2 cm right renal mass No plans for surgical intervention at this time Diverticulitis of large inte farooq with perforation and abscess without bleeding 06/16/2019 09/12/2021 Other chest pain 03/27/2019 09/19/2020 Overview: 03/24/19 CTA chest/ thorax: 1. Small incompletely occluded PE 2nd and 3rd branch right upper lobe PA; 2. Stable cardiac enlargement; Moderate calcification aortic root with 4.5cm fusiform dilatation mid-ascending aorta; 3. Atherosclerotic calcifications with ostial stenosis celiac trunk, SMA, bilateral renal arteries; 4. Small dependent pleural effusions, larger on right, compressive atelectasis posterior lung bases. 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 Wakes up in the middle of the night feeling she has to eat.has a gnawing of the stomach. Routine health maintenance 01/08/201409/12 Overview: Had her feet tested for diabetes, January 2014, patient was Normal, for monofilament, i did not have the lower frequency tuning fork, but it seemed that with the higher one she could not feel the vibration. On January 2014, she needed a mammogram, colonosocpy, and BMD, she want the colonoscopy in the fall. Last Assessment & Plan: She has an appointment for the colonoscopy initial eval coming up, BMD was normal, discussed with the patient. SUMMARY 12/09/2013 12/22/2018 Overview: Htn, HPL, diabetes uncontrolled with hypoglycemia, aortic bioprosthetic valve, on xeralto, with mitral and aortic valves regurgitating, needs Yearly, Echo. Skin cancer , recent excision, Next visit need to do all the preventive measures. PVD and Carotid artery details, endocervical cancer. need to be probed into, got this form her previous records, patient did not mention to us. Carotid artery disease 12/09/2013 Overview: Per her records Type 2 diabetes mellitus wit hout complication, without long-term current use of insulin 11/20/2013 09/12/2021 Overview: 2008; has been well controlled for a while. Metformin caused her diarrhea. Patient had her eyes examined in [place] this year and was told that she had no retinopathy. December 7.5, she has been running around that for the last couple years, didn't take careof he diabetes. Last Assessment & Plan: Last a1c 7.1 on 06/07/19 Not on any home meds at this time (intolerance to metformin in past) Hemoglobin A1C (%) Date Value 10/24/2019 7.0 Follow up with pcp for discussion on initiating therapy documented as of this encounter (statuses as of 04/09/2022) [facility]09-15-2022 History of Past illness Narrative* Problem Noted Date Resolved Date Acute on chronic systolic heart failure 03/19/20 22 03/22/2022 Melena 02/22/2022 02/24/2022 Acute kidney injury 02/22/2022 02/24/2022 Atrial fibrillation 01/12/2022 03/21/2022 Encounter for support and coordination of transi tion of care 02/15/2021 09/12/2021 Overview: 02/13/[address] Ferguson's office following gallbladder ultrasound demonstrating sludge. Admitted to some black stools but not bloody. Patient had Hgb of 7.2, hem positive stool. Vital signs 98.1 F-79-17-131/42-98%. Exam nonacute. Abdomen nondistended with tender epigastric and right upper quadrant. WBC 9.7-RBC 2.49L-Hgb 7.2L-HCT 20 2.8L-RDW 50 4.4H-PLT 232 with normal differential. CMP notable for sodium 132L, BUN 30 7H, creatinine 1.6H with EGFR 30 2L. GLU 139H. Calcium 8.4L troponin was negative. UA was normal. Blood type is B+. Antibody screen negative. Gallbladder ultrasound: No acute abnormalities, apparent solid nodule in right upper pole of right kidney, CT with contrast or MRII recommended. CT abdomen pelvis: Moderate size hiatal hernia with eccentric soft tissue thickening possibly related to hernia but could not exclude mass, recommended endoscopic or barium swallow to further assess. Solid mass right upper pole and right kidney possibly neoplastic. No evidence of SBO or acute pancreatitis. 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 Chest x-ray: No acute abnormalities. Unable to get beds in local hospital, transferred to [facility]. Anemia due to GI blood loss 10/24/201903/05 Last Assessment & Plan: Assessment & PLAN: See above Renal cell carcinoma 10/24/2019 09/12/2021 Last Assessment & Plan: Currently following with urology (Dr. Wagner) outpatient for routine surveillance imaging MRI kidney on 07/11/19 noting stable 2.2 cm right renal mass No plans for surgical intervention at this time Diverticulitis of large inte farooq with perforation and abscess without bleeding 06/16/2019 09/12/2021 Other chest pain 03/27/2019 09/19/2020 Overview: 03/24/19 CTA chest/ thorax: 1. Small incompletely occluded PE 2nd and 3rd branch right upper lobe PA; 2. Stable cardiac enlargement; Moderate calcification aortic root with 4.5cm fusiform dilatation mid-ascending aorta; 3. Atherosclerotic calcifications with ostial stenosis celiac trunk, SMA, bilateral renal arteries; 4. Small dependent pleural effusions, larger on right, compressive atelectasis posterior lung bases. 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 Wakes up in the middle of the night feeling she has to eat.has a gnawing of the stomach. Routine health maintenance 01/08/201409/12 Overview: Had her feet tested for diabetes, January 2014, patient was Normal, for monofilament, i did not have the lower frequency tuning fork, but it seemed that with the higher one she could not feel the vibration. On January 2014, she needed a mammogram, colonosocpy, and BMD, she want the colonoscopy in the fall. Last Assessment & Plan: She has an appointment for the colonoscopy initial eval coming up, BMD was normal, discussed with the patient. SUMMARY 12/09/2013 12/22/2018 Overview: Htn, HPL, diabetes uncontrolled with hypoglycemia, aortic bioprosthetic valve, on xeralto, with mitral and aortic valves regurgitating, needs Yearly, Echo. Skin cancer , recent excision, Next visit need to do all the preventive measures. PVD and Carotid artery details, endocervical cancer. need to be probed into, got this form her previous records, patient did not mention to us. Carotid artery disease 12/09/2013 Overview: Per her records Type 2 diabetes mellitus wit hout complication, without long-term current use of insulin 11/20/2013 09/12/2021 Overview: 2008; has been well controlled for a while. Metformin caused her diarrhea. Patient had her eyes examined in [place] this year and was told that she had no retinopathy. December 7.5, she has been running around that for the last couple years, didn't take careof he diabetes. Last Assessment & Plan: Last a1c 7.1 on 06/07/19 Not on any home meds at this time (intolerance to metformin in past) Hemoglobin A1C (%) Date Value 10/24/2019 7.0 Follow up with pcp for discussion on initiating therapy documented as of this encounter (statuses as of 04/17/2022) [facility]09-15-2022 History of Past illness Narrative* Problem Noted Date Resolved Date Acute on chronic systolic heart failure 03/19/20 22 03/22/2022 Melena 02/22/2022 02/24/2022 Acute kidney injury 02/22/2022 02/24/2022 Atrial fibrillation 01/12/2022 03/21/2022 Encounter for support and coordination of transi tion of care 02/15/2021 09/12/2021 Overview: 02/13/[address] Ferguson's office following gallbladder ultrasound demonstrating sludge. Admitted to some black stools but not bloody. Patient had Hgb of 7.2, hem positive stool. Vital signs 98.1 F-79-17-131/42-98%. Exam nonacute. Abdomen nondistended with tender epigastric and right upper quadrant. WBC 9.7-RBC 2.49L-Hgb 7.2L-HCT 20 2.8L-RDW 50 4.4H-PLT 232 with normal differential. CMP notable for sodium 132L, BUN 30 7H, creatinine 1.6H with EGFR 30 2L. GLU 139H. Calcium 8.4L troponin was negative. UA was normal. Blood type is B+. Antibody screen negative. Gallbladder ultrasound: No acute abnormalities, apparent solid nodule in right upper pole of right kidney, CT with contrast or MRII recommended. CT abdomen pelvis: Moderate size hiatal hernia with eccentric soft tissue thickening possibly related to hernia but could not exclude mass, recommended endoscopic or barium swallow to further assess. Solid mass right upper pole and right kidney possibly neoplastic. No evidence of SBO or acute pancreatitis. 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 Chest x-ray: No acute abnormalities. Unable to get beds in local hospital, transferred to [facility]. Anemia due to GI blood loss 10/24/201903/05 Last Assessment & Plan: Assessment & PLAN: See above Renal cell carcinoma 10/24/2019 09/12/2021 Last Assessment & Plan: Currently following with urology (Dr. Wagner) outpatient for routine surveillance imaging MRI kidney on 07/11/19 noting stable 2.2 cm right renal mass No plans for surgical intervention at this time Diverticulitis of large inte farooq with perforation and abscess without bleeding 06/16/2019 09/12/2021 Other chest pain 03/27/2019 09/19/2020 Overview: 03/24/19 CTA chest/ thorax: 1. Small incompletely occluded PE 2nd and 3rd branch right upper lobe PA; 2. Stable cardiac enlargement; Moderate calcification aortic root with 4.5cm fusiform dilatation mid-ascending aorta; 3. Atherosclerotic calcifications with ostial stenosis celiac trunk, SMA, bilateral renal arteries; 4. Small dependent pleural effusions, larger on right, compressive atelectasis posterior lung bases. 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 Wakes up in the middle of the night feeling she has to eat.has a gnawing of the stomach. Routine health maintenance 01/08/201409/12 Overview: Had her feet tested for diabetes, January 2014, patient was Normal, for monofilament, i did not have the lower frequency tuning fork, but it seemed that with the higher one she could not feel the vibration. On January 2014, she needed a mammogram, colonosocpy, and BMD, she want the colonoscopy in the fall. Last Assessment & Plan: She has an appointment for the colonoscopy initial eval coming up, BMD was normal, discussed with the patient. SUMMARY 12/09/2013 12/22/2018 Overview: Htn, HPL, diabetes uncontrolled with hypoglycemia, aortic bioprosthetic valve, on xeralto, with mitral and aortic valves regurgitating, needs Yearly, Echo. Skin cancer , recent excision, Next visit need to do all the preventive measures. PVD and Carotid artery details, endocervical cancer. need to be probed into, got this form her previous records, patient did not mention to us. Carotid artery disease 12/09/2013 2 Overview: Per her records Type 2 diabetes mellitus wit hout complication, without long-term current use of insulin 11/20/2013 09/12/2021 Overview: 2008; has been well controlled for a while. Metformin caused her diarrhea. Patient had her eyes examined in [place] this year and was told that she had no retinopathy. December 7.5, she has been running around that for the last couple years, didn't take careof he diabetes. Last Assessment & Plan: Last a1c 7.1 on 06/07/19 Not on any home meds at this time (intolerance to metformin in past) Hemoglobin A1C (%) Date Value 10/24/2019 7.0 Follow up with pcp for discussion on initiating therapy documented as of this encounter (statuses as of 04/20/2022) [facility]09-[facility]-2022 History of Past illness Narrative* Problem Noted Date Resolved Date Acute on chronic systolic heart failure 03/19/2003/22/2022 Melena 02/22/2022 02/24/2022 Acute kidney injury 02/22/2022 02/24/2022 Atrial fibrillation 01/12/2022 03/21/2022 Encounter for support and coordination of transi tion of care 02/15/2021 09/12/2021 Overview: 02/13/[address] Ferguson's office following gallbladder ultrasound demonstrating sludge. Admitted to some black stools but not bloody. Patient had Hgb of 7.2, hem positive stool. Vital signs 98.1 F-79-17-131/42-98%. Exam nonacute. Abdomen nondistended with tender epigastric and right upper quadrant. WBC 9.7-RBC 2.49L-Hgb 7.2L-HCT 20 2.8L-RDW 50 4.4H-PLT 232 with normal differential. CMP notable for sodium 132L, BUN 30 7H, creatinine 1.6H with EGFR 30 2L. GLU 139H. Calcium 8.4L troponin was negative. UA was normal. Blood type is B+. Antibody screen negative. Gallbladder ultrasound: No acute abnormalities, apparent solid nodule in right upper pole of right kidney, CT with contrast or MRII recommended. CT abdomen pelvis: Moderate size hiatal hernia with eccentric soft tissue thickening possibly related to hernia but could not exclude mass, recommended endoscopic or barium swallow to further assess. Solid mass right upper pole and right kidney possibly neoplastic. No evidence of SBO or acute pancreatitis. 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 Chest x-ray: No acute abnormalities. Unable to get beds in local hospital, transferred to [facility]. Anemia due to GI blood loss 10/24/201903/05 Last Assessment & Plan: Assessment & PLAN: See above Renal cell carcinoma 10/24/2019 09/12/2021 Last Assessment & Plan: Currently following with urology (Dr. Wagner) outpatient for routine surveillance imaging MRI kidney on 07/11/19 noting stable 2.2 cm right renal mass No plans for surgical intervention at this time Diverticulitis of large inte farooq with perforation and abscess without bleeding 06/16/2019 09/12/2021 Other chest pain 03/27/2019 09/19/2020 Overview: 03/24/19 CTA chest/ thorax: 1. Small incompletely occluded PE 2nd and 3rd branch right upper lobe PA; 2. Stable cardiac enlargement; Moderate calcification aortic root with 4.5cm fusiform dilatation mid-ascending aorta; 3. Atherosclerotic calcifications with ostial stenosis celiac trunk, SMA, bilateral renal arteries; 4. Small dependent pleural effusions, larger on right, compressive atelectasis posterior lung bases. 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 Wakes up in the middle of the night feeling she has to eat.has a gnawing of the stomach. Routine health maintenance 01/08/201409/12 Overview: Had her feet tested for diabetes, January 2014, patient was Normal, for monofilament, i did not have the lower frequency tuning fork, but it seemed that with the higher one she could not feel the vibration. On January 2014, she needed a mammogram, colonosocpy, and BMD, she want the colonoscopy in the fall. Last Assessment & Plan: She has an appointment for the colonoscopy initial eval coming up, BMD was normal, discussed with the patient. SUMMARY 12/09/2013 12/22/2018 Overview: Htn, HPL, diabetes uncontrolled with hypoglycemia, aortic bioprosthetic valve, on xeralto, with mitral and aortic valves regurgitating, needs Yearly, Echo. Skin cancer , recent excision, Next visit need to do all the preventive measures. PVD and Carotid artery details, endocervical cancer. need to be probed into, got this form her previous records, patient did not mention to us. Carotid artery disease 12/09/2013 Overview: Per her records Type 2 diabetes mellitus wit hout complication, without long-term current use of insulin 11/20/2013 09/12/2021 Overview: 2008; has been well controlled for a while. Metformin caused her diarrhea. Patient had her eyes examined in [place] this year and was told that she had no retinopathy. December 7.5, she has been running around that for the last couple years, didn't take careof he diabetes. Last Assessment & Plan: Last a1c 7.1 on 06/07/19 Not on any home meds at this time (intolerance to metformin in past) Hemoglobin A1C (%) Date Value 10/24/2019 7.0 Follow up with pcp for discussion on initiating therapy documented as of this encounter (statuses as of 04/22/2022) [facility] History of Past illness Narrative* Problem Noted Date Resolved Date Acute on chronic systolic heart failure 03/19/20 22 03/22/2022 Melena 02/22/2022 02/24/2022 Acute kidney injury 02/22/2022 02/24/2022 Atrial fibrillation 01/12/2022 03/21/2022 Encounter for support and coordination of transi tion of care 02/15/2021 09/12/2021 Overview: 02/13/[address] Ferguson's office following gallbladder ultrasound demonstrating sludge. Admitted to some black stools but not bloody. Patient had Hgb of 7.2, hem positive stool. Vital signs 98.1 F-79-17-131/42-98%. Exam nonacute. Abdomen nondistended with tender epigastric and right upper quadrant. WBC 9.7-RBC 2.49L-Hgb 7.2L-HCT 20 2.8L-RDW 50 4.4H-PLT 232 with normal differential. CMP notable for sodium 132L, BUN 30 7H, creatinine 1.6H with EGFR 30 2L. GLU 139H. Calcium 8.4L troponin was negative. UA was normal. Blood type is B+. Antibody screen negative. Gallbladder ultrasound: No acute abnormalities, apparent solid nodule in right upper pole of right kidney, CT with contrast or MRII recommended. CT abdomen pelvis: Moderate size hiatal hernia with eccentric soft tissue thickening possibly related to hernia but could not exclude mass, recommended endoscopic or barium swallow to further assess. Solid mass right upper pole and right kidney possibly neoplastic. No evidence of SBO or acute pancreatitis. 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 Chest x-ray: No acute abnormalities. Unable to get beds in local hospital, transferred to [facility]. Anemia due to GI blood loss 10/24/201903/05 Last Assessment & Plan: Assessment & PLAN: See above Renal cell carcinoma 10/24/2019 09/12/2021 Last Assessment & Plan: Currently following with urology (Dr. Wagner) outpatient for routine surveillance imaging MRI kidney on 07/11/19 noting stable 2.2 cm right renal mass No plans for surgical intervention at this time Diverticulitis of large inte farooq with perforation and abscess without bleeding 06/16/2019 09/12/2021 Other chest pain 03/27/2019 09/19/2020 Overview: 03/24/19 CTA chest/ thorax: 1. Small incompletely occluded PE 2nd and 3rd branch right upper lobe PA; 2. Stable cardiac enlargement; Moderate calcification aortic root with 4.5cm fusiform dilatation mid-ascending aorta; 3. Atherosclerotic calcifications with ostial stenosis celiac trunk, SMA, bilateral renal arteries; 4. Small dependent pleural effusions, larger on right, compressive atelectasis posterior lung bases. 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 Wakes up in the middle of the night feeling she has to eat.has a gnawing of the stomach. Routine health maintenance 01/08/201409/12 Overview: Had her feet tested for diabetes, January 2014, patient was Normal, for monofilament, i did not have the lower frequency tuning fork, but it seemed that with the higher one she could not feel the vibration. On January 2014, she needed a mammogram, colonosocpy, and BMD, she want the colonoscopy in the fall. Last Assessment & Plan: She has an appointment for the colonoscopy initial eval coming up, BMD was normal, discussed with the patient. SUMMARY 12/09/2013 12/22/2018 Overview: Htn, HPL, diabetes uncontrolled with hypoglycemia, aortic bioprosthetic valve, on xeralto, with mitral and aortic valves regurgitating, needs Yearly, Echo. Skin cancer , recent excision, Next visit need to do all the preventive measures. PVD and Carotid artery details, endocervical cancer. need to be probed into, got this form her previous records, patient did not mention to us. Carotid artery disease 12/09/2013 Overview: Per her records Type 2 diabetes mellitus wit hout complication, without long-term current use of insulin 11/20/2013 09/12/2021 Overview: 2009; has been well controlled for a while. Metformin caused her diarrhea. Patient had her eyes examined in [place] this year and was told that she had no retinopathy. December 7.5, she has been running around that for the last couple years, didn't take careof he diabetes. Last Assessment & Plan: Last a1c 7.1 on 06/07/19 Not on any home meds at this time (intolerance to metformin in past) Hemoglobin A1C (%) Date Value 10/24/2019 7.0 Follow up with pcp for discussion on initiating therapy documented as of this encounter (statuses as of 04/23/2022) [facility]09-15-2022 History of Past illness Narrative* Problem Noted Date Resolved Date Acute on chronic systolic heart failure 03/19/2003/22/2022 Melena 02/22/2022 02/24/2022 Acute kidney injury 02/22/2022 02/24/2022 Atrial fibrillation 01/12/2022 03/21/2022 Encounter for support and coordination of transi tion of care 02/15/2021 09/12/2021 Overview: 02/13/[address] Ferguson's office following gallbladder ultrasound demonstrating sludge. Admitted to some black stools but not bloody. Patient had Hgb of 7.2, hem positive stool. Vital signs 98.1 F-79-17-131/42-98%. Exam nonacute. Abdomen nondistended with tender epigastric and right upper quadrant. WBC 9.7-RBC 2.49L-Hgb 7.2L-HCT 20 2.8L-RDW 50 4.4H-PLT 232 with normal differential. CMP notable for sodium 132L, BUN 30 7H, creatinine 1.6H with EGFR 30 2L. GLU 139H. Calcium 8.4L troponin was negative. UA was normal. Blood type is B+. Antibody screen negative. Gallbladder ultrasound: No acute abnormalities, apparent solid nodule in right upper pole of right kidney, CT with contrast or MRII recommended. CT abdomen pelvis: Moderate size hiatal hernia with eccentric soft tissue thickening possibly related to hernia but could not exclude mass, recommended endoscopic or barium swallow to further assess. Solid mass right upper pole and right kidney possibly neoplastic. No evidence of SBO or acute pancreatitis. 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 Chest x-ray: No acute abnormalities. Unable to get beds in local hospital, transferred to [facility]. Anemia due to GI blood loss 10/24/201903/05 Last Assessment & Plan: Assessment & PLAN: See above Renal cell carcinoma 10/24/2019 09/12/2021 Last Assessment & Plan: Currently following with urology (Dr. Wagner) outpatient for routine surveillance imaging MRI kidney on 07/11/19 noting stable 2.2 cm right renal mass No plans for surgical intervention at this time Diverticulitis of large inte farooq with perforation and abscess without bleeding 06/16/2019 09/12/2021 Other chest pain 03/27/2019 09/19/2020 Overview: 03/24/19 CTA chest/ thorax: 1. Small incompletely occluded PE 2nd and 3rd branch right upper lobe PA; 2. Stable cardiac enlargement; Moderate calcification aortic root with 4.5cm fusiform dilatation mid-ascending aorta; 3. Atherosclerotic calcifications with ostial stenosis celiac trunk, SMA, bilateral renal arteries; 4. Small dependent pleural effusions, larger on right, compressive atelectasis posterior lung bases. 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 Wakes up in the middle of the night feeling she has to eat.has a gnawing of the stomach. Routine health maintenance 01/08/201409/12 Overview: Had her feet tested for diabetes, January 2014, patient was Normal, for monofilament, i did not have the lower frequency tuning fork, but it seemed that with the higher one she could not feel the vibration. On January 2014, she needed a mammogram, colonosocpy, and BMD, she want the colonoscopy in the fall. Last Assessment & Plan: She has an appointment for the colonoscopy initial eval coming up, BMD was normal, discussed with the patient. SUMMARY 12/09/2013 12/22/2018 Overview: Htn, HPL, diabetes uncontrolled with hypoglycemia, aortic bioprosthetic valve, on xeralto, with mitral and aortic valves regurgitating, needs Yearly, Echo. Skin cancer , recent excision, Next visit need to do all the preventive measures. PVD and Carotid artery details, endocervical cancer. need to be probed into, got this form her previous records, patient did not mention to us. Carotid artery disease 12/09/2013 Overview: Per her records Type 2 diabetes mellitus wit hout complication, without long-term current use of insulin 11/20/2013 09/12/2021 Overview: 2008; has been well controlled for a while. Metformin caused her diarrhea. Patient had her eyes examined in [place] this year and was told that she had no retinopathy. December 7.5, she has been running around that for the last couple years, didn't take careof he diabetes. Last Assessment & Plan: Last a1c 7.1 on 06/07/19 Not on any home meds at this time (intolerance to metformin in past) Hemoglobin A1C (%) Date Value 10/24/2019 7.0 Follow up with pcp for discussion on initiating therapy documented as of this encounter (statuses as of 04/28/2022) [facility]09-15-2022 History of Past illness Narrative* Problem Noted Date Resolved Date Acute on chronic systolic heart failure 03/19/20 22 03/22/2022 Melena 02/22/2022 02/24/2022 Acute kidney injury 02/22/2022 02/24/2022 Atrial fibrillation 01/12/2022 03/21/2022 Encounter for support and coordination of transi tion of care 02/15/2021 09/12/2021 Overview: 02/13/[address] Ferguson's office following gallbladder ultrasound demonstrating sludge. Admitted to some black stools but not bloody. Patient had Hgb of 7.2, hem positive stool. Vital signs 98.1 F-79-17-131/42-98%. Exam nonacute. Abdomen nondistended with tender epigastric and right upper quadrant. WBC 9.7-RBC 2.49L-Hgb 7.2L-HCT 20 2.8L-RDW 50 4.4H-PLT 232 with normal differential. CMP notable for sodium 132L, BUN 30 7H, creatinine 1.6H with EGFR 30 2L. GLU 139H. Calcium 8.4L troponin was negative. UA was normal. Blood type is B+. Antibody screen negative. Gallbladder ultrasound: No acute abnormalities, apparent solid nodule in right upper pole of right kidney, CT with contrast or MRII recommended. CT abdomen pelvis: Moderate size hiatal hernia with eccentric soft tissue thickening possibly related to hernia but could not exclude mass, recommended endoscopic or barium swallow to further assess. Solid mass right upper pole and right kidney possibly neoplastic. No evidence of SBO or acute pancreatitis. 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 Chest x-ray: No acute abnormalities. Unable to get beds in local hospital, transferred to [facility]. Anemia due to GI blood loss 10/24/201903/05 Last Assessment & Plan: Assessment & PLAN: See above Renal cell carcinoma 10/24/2019 09/12/2021 Last Assessment & Plan: Currently following with urology (Dr. Wagner) outpatient for routine surveillance imaging MRI kidney on 07/11/19 noting stable 2.2 cm right renal mass No plans for surgical intervention at this time Diverticulitis of large inte farooq with perforation and abscess without bleeding 06/16/2019 09/12/2021 Other chest pain 03/27/2019 09/19/2020 Overview: 03/24/19 CTA chest/ thorax: 1. Small incompletely occluded PE 2nd and 3rd branch right upper lobe PA; 2. Stable cardiac enlargement; Moderate calcification aortic root with 4.5cm fusiform dilatation mid-ascending aorta; 3. Atherosclerotic calcifications with ostial stenosis celiac trunk, SMA, bilateral renal arteries; 4. Small dependent pleural effusions, larger on right, compressive atelectasis posterior lung bases. 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 Wakes up in the middle of the night feeling she has to eat.has a gnawing of the stomach. Routine health maintenance 01/08/201409/12 Overview: Had her feet tested for diabetes, January 2014, patient was Normal, for monofilament, i did not have the lower frequency tuning fork, but it seemed that with the higher one she could not feel the vibration. On January 2014, she needed a mammogram, colonosocpy, and BMD, she want the colonoscopy in the fall. Last Assessment & Plan: She has an appointment for the colonoscopy initial eval coming up, BMD was normal, discussed with the patient. SUMMARY 12/09/2013 12/22/2018 Overview: Htn, HPL, diabetes uncontrolled with hypoglycemia, aortic bioprosthetic valve, on xeralto, with mitral and aortic valves regurgitating, needs Yearly, Echo. Skin cancer , recent excision, Next visit need to do all the preventive measures. PVD and Carotid artery details, endocervical cancer. need to be probed into, got this form her previous records, patient did not mention to us. Carotid artery disease 12/09/2013 Overview: Per her records Type 2 diabetes mellitus wit hout complication, without long-term current use of insulin 11/20/2013 09/12/2021 Overview: 2008; has been well controlled for a while. Metformin caused her diarrhea. Patient had her eyes examined in [place] this year and was told that she had no retinopathy. December 7.5, she has been running around that for the last couple years, didn't take careof he diabetes. Last Assessment & Plan: Last a1c 7.1 on 06/07/19 Not on any home meds at this time (intolerance to metformin in past) Hemoglobin A1C (%) Date Value 10/24/2019 7.0 Follow up with pcp for discussion on initiating therapy documented as of this encounter (statuses as of 05/15/2022) [facility]09-15-2022 History of Past illness Narrative* Problem Noted Date Resolved Date Acute on chronic systolic heart failure 03/19/2003/22/2022 Melena 02/22/2022 02/24/2022 Acute kidney injury 02/22/2022 02/24/2022 Atrial fibrillation 01/12/2022 03/21/2022 Encounter for support and coordination of transi tion of care 02/15/2021 09/12/2021 Overview: 02/13/[address] Ferguson's office following gallbladder ultrasound demonstrating sludge. Admitted to some black stools but not bloody. Patient had Hgb of 7.2, hem positive stool. Vital signs 98.1 F-79-17-131/42-98%. Exam nonacute. Abdomen nondistended with tender epigastric and right upper quadrant. WBC 9.7-RBC 2.49L-Hgb 7.2L-HCT 20 2.8L-RDW 50 4.4H-PLT 232 with normal differential. CMP notable for sodium 132L, BUN 30 7H, creatinine 1.6H with EGFR 30 2L. GLU 139H. Calcium 8.4L troponin was negative. UA was normal. Blood type is B+. Antibody screen negative. Gallbladder ultrasound: No acute abnormalities, apparent solid nodule in right upper pole of right kidney, CT with contrast or MRII recommended. CT abdomen pelvis: Moderate size hiatal hernia with eccentric soft tissue thickening possibly related to hernia but could not exclude mass, recommended endoscopic or barium swallow to further assess. Solid mass right upper pole and right kidney possibly neoplastic. No evidence of SBO or acute pancreatitis. 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 Chest x-ray: No acute abnormalities. Unable to get beds in local hospital, transferred to [facility]. Anemia due to GI blood loss 10/24/201903/05 Last Assessment & Plan: Assessment & PLAN: See above Renal cell carcinoma 10/24/2019 09/12/2021 Last Assessment & Plan: Currently following with urology (Dr. Wagner) outpatient for routine surveillance imaging MRI kidney on 07/11/19 noting stable 2.2 cm right renal mass No plans for surgical intervention at this time Diverticulitis of large inte farooq with perforation and abscess without bleeding 06/16/2019 09/12/2021 Other chest pain 03/27/2019 09/19/2020 Overview: 03/24/19 CTA chest/ thorax: 1. Small incompletely occluded PE 2nd and 3rd branch right upper lobe PA; 2. Stable cardiac enlargement; Moderate calcification aortic root with 4.5cm fusiform dilatation mid-ascending aorta; 3. Atherosclerotic calcifications with ostial stenosis celiac trunk, SMA, bilateral renal arteries; 4. Small dependent pleural effusions, larger on right, compressive atelectasis posterior lung bases. 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 Wakes up in the middle of the night feeling she has to eat.has a gnawing of the stomach. Routine health maintenance 01/08/201409/12 Overview: Had her feet tested for diabetes, January 2014, patient was Normal, for monofilament, i did not have the lower frequency tuning fork, but it seemed that with the higher one she could not feel the vibration. On January 2014, she needed a mammogram, colonosocpy, and BMD, she want the colonoscopy in the fall. Last Assessment & Plan: She has an appointment for the colonoscopy initial eval coming up, BMD was normal, discussed with the patient. SUMMARY 12/09/2013 12/22/2018 Overview: Htn, HPL, diabetes uncontrolled with hypoglycemia, aortic bioprosthetic valve, on xeralto, with mitral and aortic valves regurgitating, needs Yearly, Echo. Skin cancer , recent excision, Next visit need to do all the preventive measures. PVD and Carotid artery details, endocervical cancer. need to be probed into, got this form her previous records, patient did not mention to us. Carotid artery disease 12/09/2013 Overview: Per her records Type 2 diabetes mellitus wit hout complication, without long-term current use of insulin 11/20/2013 09/12/2021 Overview: 2008; has been well controlled for a while. Metformin caused her diarrhea. Patient had her eyes examined in [place] this year and was told that she had no retinopathy. December 7.5, she has been running around that for the last couple years, didn't take careof he diabetes. Last Assessment & Plan: Last a1c 7.1 on 06/07/19 Not on any home meds at this time (intolerance to metformin in past) Hemoglobin A1C (%) Date Value 10/24/2019 7.0 Follow up with pcp for discussion on initiating therapy documented as of this encounter (statuses as of 05/25/2022) [facility]09-15-2022 History of Past illness Narrative* Problem Noted Date Resolved Date Acute on chronic systolic heart failure 03/19/20 22 03/22/2022 Melena 02/22/2022 02/24/2022 Acute kidney injury 02/22/2022 02/24/2022 Atrial fibrillation 01/12/2022 03/21/2022 Encounter for support and coordination of transi tion of care 02/15/2021 09/12/2021 Overview: 02/13/[address] Ferguson's office following gallbladder ultrasound demonstrating sludge. Admitted to some black stools but not bloody. Patient had Hgb of 7.2, hem positive stool. Vital signs 98.1 F-79-17-131/42-98%. Exam nonacute. Abdomen nondistended with tender epigastric and right upper quadrant. WBC 9.7-RBC 2.49L-Hgb 7.2L-HCT 20 2.8L-RDW 50 4.4H-PLT 232 with normal differential. CMP notable for sodium 132L, BUN 30 7H, creatinine 1.6H with EGFR 30 2L. GLU 139H. Calcium 8.4L troponin was negative. UA was normal. Blood type is B+. Antibody screen negative. Gallbladder ultrasound: No acute abnormalities, apparent solid nodule in right upper pole of right kidney, CT with contrast or MRII recommended. CT abdomen pelvis: Moderate size hiatal hernia with eccentric soft tissue thickening possibly related to hernia but could not exclude mass, recommended endoscopic or barium swallow to further assess. Solid mass right upper pole and right kidney possibly neoplastic. No evidence of SBO or acute pancreatitis. 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 Chest x-ray: No acute abnormalities. Unable to get beds in local hospital, transferred to [facility]. Anemia due to GI blood loss 10/24/201903/05 Last Assessment & Plan: Assessment & PLAN: See above Renal cell carcinoma 10/24/2019 09/12/2021 Last Assessment & Plan: Currently following with urology (Dr. Wagner) outpatient for routine surveillance imaging MRI kidney on 07/11/19 noting stable 2.2 cm right renal mass No plans for surgical intervention at this time Diverticulitis of large inte farooq with perforation and abscess without bleeding 06/16/2019 09/12/2021 Other chest pain 03/27/2019 09/19/2020 Overview: 03/24/19 CTA chest/ thorax: 1. Small incompletely occluded PE 2nd and 3rd branch right upper lobe PA; 2. Stable cardiac enlargement; Moderate calcification aortic root with 4.5cm fusiform dilatation mid-ascending aorta; 3. Atherosclerotic calcifications with ostial stenosis celiac trunk, SMA, bilateral renal arteries; 4. Small dependent pleural effusions, larger on right, compressive atelectasis posterior lung bases. 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 Wakes up in the middle of the night feeling she has to eat.has a gnawing of the stomach. Routine health maintenance 01/08/201409/12 Overview: Had her feet tested for diabetes, January 2014, patient was Normal, for monofilament, i did not have the lower frequency tuning fork, but it seemed that with the higher one she could not feel the vibration. On January 2014, she needed a mammogram, colonosocpy, and BMD, she want the colonoscopy in the fall. Last Assessment & Plan: She has an appointment for the colonoscopy initial eval coming up, BMD was normal, discussed with the patient. SUMMARY 12/09/2013 12/22/2018 Overview: Htn, HPL, diabetes uncontrolled with hypoglycemia, aortic bioprosthetic valve, on xeralto, with mitral and aortic valves regurgitating, needs Yearly, Echo. Skin cancer , recent excision, Next visit need to do all the preventive measures. PVD and Carotid artery details, endocervical cancer. need to be probed into, got this form her previous records, patient did not mention to us. Carotid artery disease 12/09/2013 Overview: Per her records Type 2 diabetes mellitus wit hout complication, without long-term current use of insulin 11/20/2013 09/12/2021 Overview: 2008; has been well controlled for a while. Metformin caused her diarrhea. Patient had her eyes examined in [place] this year and was told that she had no retinopathy. December 7.5, she has been running around that for the last couple years, didn't take careof he diabetes. Last Assessment & Plan: Last a1c 7.1 on 06/07/19 Not on any home meds at this time (intolerance to metformin in past) Hemoglobin A1C (%) Date Value 10/24/2019 7.0 Follow up with pcp for discussion on initiating therapy documented as of this encounter (statuses as of 05/29/2022) [facility]09[facility] History of Past illness Narrative* Problem Noted Date Resolved Date Acute on chronic systolic heart failure 03/19/20 22 03/22/2022 Melena 02/22/2022 02/24/2022 Acute kidney injury 02/22/2022 02/24/2022 Atrial fibrillation 01/12/2022 03/21/2022 Encounter for support and coordination of transi tion of care 02/15/2021 09/12/2021 Overview: 02/13/[address] Ferguson's office following gallbladder ultrasound demonstrating sludge. Admitted to some black stools but not bloody. Patient had Hgb of 7.2, hem positive stool. Vital signs 98.1 F-79-17-131/42-98%. Exam nonacute. Abdomen nondistended with tender epigastric and right upper quadrant. WBC 9.7-RBC 2.49L-Hgb 7.2L-HCT 20 2.8L-RDW 50 4.4H-PLT 232 with normal differential. CMP notable for sodium 132L, BUN 30 7H, creatinine 1.6H with EGFR 30 2L. GLU 139H. Calcium 8.4L troponin was negative. UA was normal. Blood type is B+. Antibody screen negative. Gallbladder ultrasound: No acute abnormalities, apparent solid nodule in right upper pole of right kidney, CT with contrast or MRII recommended. CT abdomen pelvis: Moderate size hiatal hernia with eccentric soft tissue thickening possibly related to hernia but could not exclude mass, recommended endoscopic or barium swallow to further assess. Solid mass right upper pole and right kidney possibly neoplastic. No evidence of SBO or acute pancreatitis. 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 Chest x-ray: No acute abnormalities. Unable to get beds in local hospital, transferred to [facility]. Anemia due to GI blood loss 10/24/201903/05 Last Assessment & Plan: Assessment & PLAN: See above Renal cell carcinoma 10/24/2019 09/12/2021 Last Assessment & Plan: Currently following with urology (Dr. Wagner) outpatient for routine surveillance imaging MRI kidney on 07/11/19 noting stable 2.2 cm right renal mass No plans for surgical intervention at this time Diverticulitis of large inte farooq with perforation and abscess without bleeding 06/16/2019 09/12/2021 Other chest pain 03/27/2019 09/19/2020 Overview: 03/24/19 CTA chest/ thorax: 1. Small incompletely occluded PE 2nd and 3rd branch right upper lobe PA; 2. Stable cardiac enlargement; Moderate calcification aortic root with 4.5cm fusiform dilatation mid-ascending aorta; 3. Atherosclerotic calcifications with ostial stenosis celiac trunk, SMA, bilateral renal arteries; 4. Small dependent pleural effusions, larger on right, compressive atelectasis posterior lung bases. 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 Wakes up in the middle of the night feeling she has to eat.has a gnawing of the stomach. Routine health maintenance 01/08/201409/12 Overview: Had her feet tested for diabetes, January 2014, patient was Normal, for monofilament, i did not have the lower frequency tuning fork, but it seemed that with the higher one she could not feel the vibration. On January 2014, she needed a mammogram, colonosocpy, and BMD, she want the colonoscopy in the fall. Last Assessment & Plan: She has an appointment for the colonoscopy initial eval coming up, BMD was normal, discussed with the patient. SUMMARY 12/09/2013 12/22/2018 Overview: Htn, HPL, diabetes uncontrolled with hypoglycemia, aortic bioprosthetic valve, on xeralto, with mitral and aortic valves regurgitating, needs Yearly, Echo. Skin cancer , recent excision, Next visit need to do all the preventive measures. PVD and Carotid artery details, endocervical cancer. need to be probed into, got this form her previous records, patient did not mention to us. Carotid artery disease 12/09/2013 Overview: Per her records Type 2 diabetes mellitus wit hout complication, without long-term current use of insulin 11/20/2013 09/12/2021 Overview: 2008; has been well controlled for a while. Metformin caused her diarrhea. Patient had her eyes examined in [place] this year and was told that she had no retinopathy. December 7.5, she has been running around that for the last couple years, didn't take careof he diabetes. Last Assessment & Plan: Last a1c 7.1 on 06/07/19 Not on any home meds at this time (intolerance to metformin in past) Hemoglobin A1C (%) Date Value 10/24/2019 7.0 Follow up with pcp for discussion on initiating therapy documented as of this encounter (statuses as of 07/06/2022) [facility]09-15-2022 History of Past illness Narrative* Problem Noted Date Resolved Date Acute on chronic systolic heart failure 03/19/20 22 03/22/2022 Melena 02/22/2022 02/24/2022 Acute kidney injury 02/22/2022 02/24/2022 Atrial fibrillation 01/12/2022 03/21/2022 Encounter for support and coordination of transi tion of care 02/15/2021 09/12/2021 Overview: 02/13/[address] Ferguson's office following gallbladder ultrasound demonstrating sludge. Admitted to some black stools but not bloody. Patient had Hgb of 7.2, hem positive stool. Vital signs 98.1 F-79-17-131/42-98%. Exam nonacute. Abdomen nondistended with tender epigastric and right upper quadrant. WBC 9.7-RBC 2.49L-Hgb 7.2L-HCT 20 2.8L-RDW 50 4.4H-PLT 232 with normal differential. CMP notable for sodium 132L, BUN 30 7H, creatinine 1.6H with EGFR 30 2L. GLU 139H. Calcium 8.4L troponin was negative. UA was normal. Blood type is B+. Antibody screen negative. Gallbladder ultrasound: No acute abnormalities, apparent solid nodule in right upper pole of right kidney, CT with contrast or MRII recommended. CT abdomen pelvis: Moderate size hiatal hernia with eccentric soft tissue thickening possibly related to hernia but could not exclude mass, recommended endoscopic or barium swallow to further assess. Solid mass right upper pole and right kidney possibly neoplastic. No evidence of SBO or acute pancreatitis. 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 Chest x-ray: No acute abnormalities. Unable to get beds in local hospital, transferred to [facility]. Anemia due to GI blood loss 10/24/201903/05 Last Assessment & Plan: Assessment & PLAN: See above Renal cell carcinoma 10/24/2019 09/12/2021 Last Assessment & Plan: Currently following with urology (Dr. Wagner) outpatient for routine surveillance imaging MRI kidney on 07/11/19 noting stable 2.2 cm right renal mass No plans for surgical intervention at this time Diverticulitis of large inte farooq with perforation and abscess without bleeding 06/16/2019 09/12/2021 Other chest pain 03/27/2019 09/19/2020 Overview: 03/24/19 CTA chest/ thorax: 1. Small incompletely occluded PE 2nd and 3rd branch right upper lobe PA; 2. Stable cardiac enlargement; Moderate calcification aortic root with 4.5cm fusiform dilatation mid-ascending aorta; 3. Atherosclerotic calcifications with ostial stenosis celiac trunk, SMA, bilateral renal arteries; 4. Small dependent pleural effusions, larger on right, compressive atelectasis posterior lung bases. 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 Wakes up in the middle of the night feeling she has to eat.has a gnawing of the stomach. Routine health maintenance 01/08/201409/12 Overview: Had her feet tested for diabetes, January 2014, patient was Normal, for monofilament, i did not have the lower frequency tuning fork, but it seemed that with the higher one she could not feel the vibration. On January 2014, she needed a mammogram, colonosocpy, and BMD, she want the colonoscopy in the fall. Last Assessment & Plan: She has an appointment for the colonoscopy initial eval coming up, BMD was normal, discussed with the patient. SUMMARY 12/09/2013 12/22/2018 Overview: Htn, HPL, diabetes uncontrolled with hypoglycemia, aortic bioprosthetic valve, on xeralto, with mitral and aortic valves regurgitating, needs Yearly, Echo. Skin cancer , recent excision, Next visit need to do all the preventive measures. PVD and Carotid artery details, endocervical cancer. need to be probed into, got this form her previous records, patient did not mention to us. Carotid artery disease 12/09/2013 2 Overview: Per her records Type 2 diabetes mellitus wit hout complication, without long-term current use of insulin 11/20/2013 09/12/2021 Overview: 2008; has been well controlled for a while. Metformin caused her diarrhea. Patient had her eyes examined in [place] this year and was told that she had no retinopathy. December 09.5, she has been running around that for the last couple years, didn't take careof he diabetes. Last Assessment & Plan: Last a1c 7.1 on 06/07/19 Not on any home meds at this time (intolerance to metformin in past) Hemoglobin A1C (%) Date Value 10/24/2019 7.0 Follow up with pcp for discussion on initiating therapy documented as of this encounter (statuses as of 07/09/2022) [facility]09-15-2022 History of Past illness Narrative* Problem Noted Date Resolved Date Acute on chronic systolic heart failure 03/19/20 22 03/22/2022 Melena 02/22/2022 02/24/2022 Acute kidney injury 02/22/2022 02/24/2022 Atrial fibrillation 01/12/2022 03/21/2022 Encounter for support and coordination of transi tion of care 02/15/2021 09/12/2021 Overview: 02/13/[address] Ferguson's office following gallbladder ultrasound demonstrating sludge. Admitted to some black stools but not bloody. Patient had Hgb of 7.2, hem positive stool. Vital signs 98.1 F-79-17-131/42-98%. Exam nonacute. Abdomen nondistended with tender epigastric and right upper quadrant. WBC 9.7-RBC 2.49L-Hgb 7.2L-HCT 20 2.8L-RDW 50 4.4H-PLT 232 with normal differential. CMP notable for sodium 132L, BUN 30 7H, creatinine 1.6H with EGFR 30 2L. GLU 139H. Calcium 8.4L troponin was negative. UA was normal. Blood type is B+. Antibody screen negative. Gallbladder ultrasound: No acute abnormalities, apparent solid nodule in right upper pole of right kidney, CT with contrast or MRII recommended. CT abdomen pelvis: Moderate size hiatal hernia with eccentric soft tissue thickening possibly related to hernia but could not exclude mass, recommended endoscopic or barium swallow to further assess. Solid mass right upper pole and right kidney possibly neoplastic. No evidence of SBO or acute pancreatitis. 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 Chest x-ray: No acute abnormalities. Unable to get beds in local hospital, transferred to [facility]. Anemia due to GI blood loss 10/24/201903/05 Last Assessment & Plan: Assessment & PLAN: See above Renal cell carcinoma 10/24/2019 09/12/2021 Last Assessment & Plan: Currently following with urology (Dr. Wagner) outpatient for routine surveillance imaging MRI kidney on 07/11/19 noting stable 2.2 cm right renal mass No plans for surgical intervention at this time Diverticulitis of large inte farooq with perforation and abscess without bleeding 06/16/2019 09/12/2021 Other chest pain 03/27/2019 09/19/2020 Overview: 03/24/19 CTA chest/ thorax: 1. Small incompletely occluded PE 2nd and 3rd branch right upper lobe PA; 2. Stable cardiac enlargement; Moderate calcification aortic root with 4.5cm fusiform dilatation mid-ascending aorta; 3. Atherosclerotic calcifications with ostial stenosis celiac trunk, SMA, bilateral renal arteries; 4. Small dependent pleural effusions, larger on right, compressive atelectasis posterior lung bases. 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 Wakes up in the middle of the night feeling she has to eat.has a gnawing of the stomach. Routine health maintenance 01/08/201409/12 Overview: Had her feet tested for diabetes, January 2014, patient was Normal, for monofilament, i did not have the lower frequency tuning fork, but it seemed that with the higher one she could not feel the vibration. On January 2014, she needed a mammogram, colonosocpy, and BMD, she want the colonoscopy in the fall. Last Assessment & Plan: She has an appointment for the colonoscopy initial eval coming up, BMD was normal, discussed with the patient. SUMMARY 12/09/2013 12/22/2018 Overview: Htn, HPL, diabetes uncontrolled with hypoglycemia, aortic bioprosthetic valve, on xeralto, with mitral and aortic valves regurgitating, needs Yearly, Echo. Skin cancer , recent excision, Next visit need to do all the preventive measures. PVD and Carotid artery details, endocervical cancer. need to be probed into, got this form her previous records, patient did not mention to us. Carotid artery disease 12/09/2013 Overview: Per her records Type 2 diabetes mellitus wit hout complication, without long-term current use of insulin 11/20/2013 09/12/2021 Overview: 2008; has been well controlled for a while. Metformin caused her diarrhea. Patient had her eyes examined in [place] this year and was told that she had no retinopathy. December 7.5, she has been running around that for the last couple years, didn't take careof he diabetes. Last Assessment & Plan: Last a1c 7.1 on 06/07/19 Not on any home meds at this time (intolerance to metformin in past) Hemoglobin A1C (%) Date Value 10/24/2019 7.0 Follow up with pcp for discussion on initiating therapy documented as of this encounter (statuses as of 07/22/2022) [facility]09-[facility]-2022 History of Past illness Narrative* Problem Noted Date Resolved Date Acute on chronic systolic heart failure 03/19/20 22 03/22/2022 Melena 02/22/2022 02/24/2022 Acute kidney injury 02/22/2022 02/24/2022 Atrial fibrillation 01/12/2022 03/21/2022 Encounter for support and coordination of transi tion of care 02/15/2021 09/12/2021 Overview: 02/13/[address] Ferguson's office following gallbladder ultrasound demonstrating sludge. Admitted to some black stools but not bloody. Patient had Hgb of 7.2, hem positive stool. Vital signs 98.1 F-79-17-131/42-98%. Exam nonacute. Abdomen nondistended with tender epigastric and right upper quadrant. WBC 9.7-RBC 2.49L-Hgb 7.2L-HCT 20 2.8L-RDW 50 4.4H-PLT 232 with normal differential. CMP notable for sodium 132L, BUN 30 7H, creatinine 1.6H with EGFR 30 2L. GLU 139H. Calcium 8.4L troponin was negative. UA was normal. Blood type is B+. Antibody screen negative. Gallbladder ultrasound: No acute abnormalities, apparent solid nodule in right upper pole of right kidney, CT with contrast or MRII recommended. CT abdomen pelvis: Moderate size hiatal hernia with eccentric soft tissue thickening possibly related to hernia but could not exclude mass, recommended endoscopic or barium swallow to further assess. Solid mass right upper pole and right kidney possibly neoplastic. No evidence of SBO or acute pancreatitis. 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 Chest x-ray: No acute abnormalities. Unable to get beds in local hospital, transferred to [facility]. Anemia due to GI blood loss 10/24/201903/05 Last Assessment & Plan: Assessment & PLAN: See above Renal cell carcinoma 10/24/2019 09/12/2021 Last Assessment & Plan: Currently following with urology (Dr. Wagner) outpatient for routine surveillance imaging MRI kidney on 07/11/19 noting stable 2.2 cm right renal mass No plans for surgical intervention at this time Diverticulitis of large inte farooq with perforation and abscess without bleeding 06/16/2019 09/12/2021 Other chest pain 03/27/2019 09/19/2020 Overview: 03/24/19 CTA chest/ thorax: 1. Small incompletely occluded PE 2nd and 3rd branch right upper lobe PA; 2. Stable cardiac enlargement; Moderate calcification aortic root with 4.5cm fusiform dilatation mid-ascending aorta; 3. Atherosclerotic calcifications with ostial stenosis celiac trunk, SMA, bilateral renal arteries; 4. Small dependent pleural effusions, larger on right, compressive atelectasis posterior lung bases. 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 Wakes up in the middle of the night feeling she has to eat.has a gnawing of the stomach. Routine health maintenance 01/08/201409/12 Overview: Had her feet tested for diabetes, January 2014, patient was Normal, for monofilament, i did not have the lower frequency tuning fork, but it seemed that with the higher one she could not feel the vibration. On January 2014, she needed a mammogram, colonosocpy, and BMD, she want the colonoscopy in the fall. Last Assessment & Plan: She has an appointment for the colonoscopy initial eval coming up, BMD was normal, discussed with the patient. SUMMARY 12/09/2013 12/22/2018 Overview: Htn, HPL, diabetes uncontrolled with hypoglycemia, aortic bioprosthetic valve, on xeralto, with mitral and aortic valves regurgitating, needs Yearly, Echo. Skin cancer , recent excision, Next visit need to do all the preventive measures. PVD and Carotid artery details, endocervical cancer. need to be probed into, got this form her previous records, patient did not mention to us. Carotid artery disease 12/09/2013 Overview: Per her records Type 2 diabetes mellitus wit hout complication, without long-term current use of insulin 11/20/2013 09/12/2021 Overview: 2008; has been well controlled for a while. Metformin caused her diarrhea. Patient had her eyes examined in [place] this year and was told that she had no retinopathy. December 09.5, she has been running around that for the last couple years, didn't take careof he diabetes. Last Assessment & Plan: Last a1c 7.1 on 06/07/19 Not on any home meds at this time (intolerance to metformin in past) Hemoglobin A1C (%) Date Value 10/24/2019 7.0 Follow up with pcp for discussion on initiating therapy documented as of this encounter (statuses as of 07/22/2022) [facility]09[facility]-2022 History of Past illness Narrative* Problem Noted Date Resolved Date Acute on chronic systolic heart failure 03/19/20 22 03/22/2022 Melena 02/22/2022 02/24/2022 Acute kidney injury 02/22/2022 02/24/2022 Atrial fibrillation 01/12/2022 03/21/2022 Encounter for support and coordination of transi tion of care 02/15/2021 09/12/2021 Overview: 02/13/[address] Ferguson's office following gallbladder ultrasound demonstrating sludge. Admitted to some black stools but not bloody. Patient had Hgb of 7.2, hem positive stool. Vital signs 98.1 F-79-17-131/42-98%. Exam nonacute. Abdomen nondistended with tender epigastric and right upper quadrant. WBC 9.7-RBC 2.49L-Hgb 7.2L-HCT 20 2.8L-RDW 50 4.4H-PLT 232 with normal differential. CMP notable for sodium 132L, BUN 30 7H, creatinine 1.6H with EGFR 30 2L. GLU 139H. Calcium 8.4L troponin was negative. UA was normal. Blood type is B+. Antibody screen negative. Gallbladder ultrasound: No acute abnormalities, apparent solid nodule in right upper pole of right kidney, CT with contrast or MRII recommended. CT abdomen pelvis: Moderate size hiatal hernia with eccentric soft tissue thickening possibly related to hernia but could not exclude mass, recommended endoscopic or barium swallow to further assess. Solid mass right upper pole and right kidney possibly neoplastic. No evidence of SBO or acute pancreatitis. 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 Chest x-ray: No acute abnormalities. Unable to get beds in local hospital, transferred to [facility]. Anemia due to GI blood loss 10/24/201903/05 Last Assessment & Plan: Assessment & PLAN: See above Renal cell carcinoma 10/24/2019 09/12/2021 Last Assessment & Plan: Currently following with urology (Dr. Wagner) outpatient for routine surveillance imaging MRI kidney on 07/11/19 noting stable 2.2 cm right renal mass No plans for surgical intervention at this time Diverticulitis of large inte farooq with perforation and abscess without bleeding 06/16/2019 09/12/2021 Other chest pain 03/27/2019 09/19/2020 Overview: 03/24/19 CTA chest/ thorax: 1. Small incompletely occluded PE 2nd and 3rd branch right upper lobe PA; 2. Stable cardiac enlargement; Moderate calcification aortic root with 4.5cm fusiform dilatation mid-ascending aorta; 3. Atherosclerotic calcifications with ostial stenosis celiac trunk, SMA, bilateral renal arteries; 4. Small dependent pleural effusions, larger on right, compressive atelectasis posterior lung bases. 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 Wakes up in the middle of the night feeling she has to eat.has a gnawing of the stomach. Routine health maintenance 01/08/201409/12 Overview: Had her feet tested for diabetes, January 2014, patient was Normal, for monofilament, i did not have the lower frequency tuning fork, but it seemed that with the higher one she could not feel the vibration. On January 2014, she needed a mammogram, colonosocpy, and BMD, she want the colonoscopy in the fall. Last Assessment & Plan: She has an appointment for the colonoscopy initial eval coming up, BMD was normal, discussed with the patient. SUMMARY 12/09/2013 12/22/2018 Overview: Htn, HPL, diabetes uncontrolled with hypoglycemia, aortic bioprosthetic valve, on xeralto, with mitral and aortic valves regurgitating, needs Yearly, Echo. Skin cancer , recent excision, Next visit need to do all the preventive measures. PVD and Carotid artery details, endocervical cancer. need to be probed into, got this form her previous records, patient did not mention to us. Carotid artery disease 12/09/2013 Overview: Per her records Type 2 diabetes mellitus wit hout complication, without long-term current use of insulin 11/20/2013 09/12/2021 Overview: 2008; has been well controlled for a while. Metformin caused her diarrhea. Patient had her eyes examined in [place] this year and was told that she had no retinopathy. December 09.5, she has been running around that for the last couple years, didn't take careof he diabetes. Last Assessment & Plan: Last a1c 7.1 on 06/07/19 Not on any home meds at this time (intolerance to metformin in past) Hemoglobin A1C (%) Date Value 10/24/2019 7.0 Follow up with pcp for discussion on initiating therapy documented as of this encounter (statuses as of 09/01/2022) [facility] History of Past illness Narrative* Problem Noted Date Resolved Date Acute on chronic systolic heart failure 03/19/20 22 03/22/2022 Melena 02/22/2022 02/24/2022 Acute kidney injury 02/22/2022 02/24/2022 Atrial fibrillation 01/12/2022 03/21/2022 Encounter for support and coordination of transi tion of care 02/15/2021 09/12/2021 Overview: 02/13/[address] Ferguson's office following gallbladder ultrasound demonstrating sludge. Admitted to some black stools but not bloody. Patient had Hgb of 7.2, hem positive stool. Vital signs 98.1 F-79-17-131/42-98%. Exam nonacute. Abdomen nondistended with tender epigastric and right upper quadrant. WBC 9.7-RBC 2.49L-Hgb 7.2L-HCT 20 2.8L-RDW 50 4.4H-PLT 232 with normal differential. CMP notable for sodium 132L, BUN 30 7H, creatinine 1.6H with EGFR 30 2L. GLU 139H. Calcium 8.4L troponin was negative. UA was normal. Blood type is B+. Antibody screen negative. Gallbladder ultrasound: No acute abnormalities, apparent solid nodule in right upper pole of right kidney, CT with contrast or MRII recommended. CT abdomen pelvis: Moderate size hiatal hernia with eccentric soft tissue thickening possibly related to hernia but could not exclude mass, recommended endoscopic or barium swallow to further assess. Solid mass right upper pole and right kidney possibly neoplastic. No evidence of SBO or acute pancreatitis. 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 Chest x-ray: No acute abnormalities. Unable to get beds in local hospital, transferred to [facility]. Anemia due to GI blood loss 10/24/201903/05 Last Assessment & Plan: Assessment & PLAN: See above Renal cell carcinoma 10/24/2019 09/12/2021 Last Assessment & Plan: Currently following with urology (Dr. Wagner) outpatient for routine surveillance imaging MRI kidney on 07/11/19 noting stable 2.2 cm right renal mass No plans for surgical intervention at this time Diverticulitis of large inte farooq with perforation and abscess without bleeding 06/16/2019 09/12/2021 Other chest pain 03/27/2019 09/19/2020 Overview: 03/24/19 CTA chest/ thorax: 1. Small incompletely occluded PE 2nd and 3rd branch right upper lobe PA; 2. Stable cardiac enlargement; Moderate calcification aortic root with 4.5cm fusiform dilatation mid-ascending aorta; 3. Atherosclerotic calcifications with ostial stenosis celiac trunk, SMA, bilateral renal arteries; 4. Small dependent pleural effusions, larger on right, compressive atelectasis posterior lung bases. 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 Wakes up in the middle of the night feeling she has to eat.has a gnawing of the stomach. Routine health maintenance 01/08/201409/12 Overview: Had her feet tested for diabetes, January 2014, patient was Normal, for monofilament, i did not have the lower frequency tuning fork, but it seemed that with the higher one she could not feel the vibration. On January 2014, she needed a mammogram, colonosocpy, and BMD, she want the colonoscopy in the fall. Last Assessment & Plan: She has an appointment for the colonoscopy initial eval coming up, BMD was normal, discussed with the patient. SUMMARY 12/09/2013 12/22/2018 Overview: Htn, HPL, diabetes uncontrolled with hypoglycemia, aortic bioprosthetic valve, on xeralto, with mitral and aortic valves regurgitating, needs Yearly, Echo. Skin cancer , recent excision, Next visit need to do all the preventive measures. PVD and Carotid artery details, endocervical cancer. need to be probed into, got this form her previous records, patient did not mention to us. Carotid artery disease 12/09/2013 Overview: Per her records Type 2 diabetes mellitus wit hout complication, without long-term current use of insulin 11/20/2013 09/12/2021 Overview: 2008; has been well controlled for a while. Metformin caused her diarrhea. Patient had her eyes examined in [place] this year and was told that she had no retinopathy. December 09.5, she has been running around that for the last couple years, didn't take careof he diabetes. Last Assessment & Plan: Last a1c 7.1 on 06/07/19 Not on any home meds at this time (intolerance to metformin in past) Hemoglobin A1C (%) Date Value 10/24/2019 7.0 Follow up with pcp for discussion on initiating therapy documented as of this encounter (statuses as of 09/27/2022) [facility]09-15-2022 History of Past illness Narrative* Problem Noted Date Resolved Date Acute on chronic systolic heart failure 03/19/20 22 03/22/2022 Melena 02/22/2022 02/24/2022 Acute kidney injury 02/22/2022 02/24/2022 Atrial fibrillation 01/12/2022 03/21/2022 Encounter for support and coordination of transi tion of care 02/15/2021 09/12/2021 Overview: 02/13/[address] Ferguson's office following gallbladder ultrasound demonstrating sludge. Admitted to some black stools but not bloody. Patient had Hgb of 7.2, hem positive stool. Vital signs 98.1 F-79-17-131/42-98%. Exam nonacute. Abdomen nondistended with tender epigastric and right upper quadrant. WBC 9.7-RBC 2.49L-Hgb 7.2L-HCT 20 2.8L-RDW 50 4.4H-PLT 232 with normal differential. CMP notable for sodium 132L, BUN 30 7H, creatinine 1.6H with EGFR 30 2L. GLU 139H. Calcium 8.4L troponin was negative. UA was normal. Blood type is B+. Antibody screen negative. Gallbladder ultrasound: No acute abnormalities, apparent solid nodule in right upper pole of right kidney, CT with contrast or MRII recommended. CT abdomen pelvis: Moderate size hiatal hernia with eccentric soft tissue thickening possibly related to hernia but could not exclude mass, recommended endoscopic or barium swallow to further assess. Solid mass right upper pole and right kidney possibly neoplastic. No evidence of SBO or acute pancreatitis. 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 Chest x-ray: No acute abnormalities. Unable to get beds in local hospital, transferred to [facility]. Anemia due to GI blood loss 10/24/201903/05 Last Assessment & Plan: Assessment & PLAN: See above Renal cell carcinoma 10/24/2019 09/12/2021 Last Assessment & Plan: Currently following with urology (Dr. Wagner) outpatient for routine surveillance imaging MRI kidney on 07/11/19 noting stable 2.2 cm right renal mass No plans for surgical intervention at this time Diverticulitis of large inte farooq with perforation and abscess without bleeding 06/16/2019 09/12/2021 Other chest pain 03/27/2019 09/19/2020 Overview: 03/24/19 CTA chest/ thorax: 1. Small incompletely occluded PE 2nd and 3rd branch right upper lobe PA; 2. Stable cardiac enlargement; Moderate calcification aortic root with 4.5cm fusiform dilatation mid-ascending aorta; 3. Atherosclerotic calcifications with ostial stenosis celiac trunk, SMA, bilateral renal arteries; 4. Small dependent pleural effusions, larger on right, compressive atelectasis posterior lung bases. 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 Wakes up in the middle of the night feeling she has to eat.has a gnawing of the stomach. Routine health maintenance 01/08/201409/12 Overview: Had her feet tested for diabetes, January 2014, patient was Normal, for monofilament, i did not have the lower frequency tuning fork, but it seemed that with the higher one she could not feel the vibration. On January 2014, she needed a mammogram, colonosocpy, and BMD, she want the colonoscopy in the fall. Last Assessment & Plan: She has an appointment for the colonoscopy initial eval coming up, BMD was normal, discussed with the patient. SUMMARY 12/09/2013 12/22/2018 Overview: Htn, HPL, diabetes uncontrolled with hypoglycemia, aortic bioprosthetic valve, on xeralto, with mitral and aortic valves regurgitating, needs Yearly, Echo. Skin cancer , recent excision, Next visit need to do all the preventive measures. PVD and Carotid artery details, endocervical cancer. need to be probed into, got this form her previous records, patient did not mention to us. Carotid artery disease 12/09/2013 Overview: Per her records Type 2 diabetes mellitus wit hout complication, without long-term current use of insulin 11/20/2013 09/12/2021 Overview: 2008; has been well controlled for a while. Metformin caused her diarrhea. Patient had her eyes examined in [place] this year and was told that she had no retinopathy. December 09.5, she has been running around that for the last couple years, didn't take careof he diabetes. Last Assessment & Plan: Last a1c 7.1 on 06/07/19 Not on any home meds at this time (intolerance to metformin in past) Hemoglobin A1C (%) Date Value 10/24/2019 7.0 Follow up with pcp for discussion on initiating therapy documented as of this encounter (statuses as of 09/28/2022) [facility]09-15-2022 History of Past illness Narrative* Problem Noted Date Resolved Date Acute on chronic systolic heart failure 03/19/20 22 03/22/2022 Melena 02/22/2022 02/24/2022 Acute kidney injury 02/22/2022 02/24/2022 Atrial fibrillation 01/12/2022 03/21/2022 Encounter for support and coordination of transi tion of care 02/15/2021 09/12/2021 Overview: 02/13/[address] Ferguson's office following gallbladder ultrasound demonstrating sludge. Admitted to some black stools but not bloody. Patient had Hgb of 7.2, hem positive stool. Vital signs 98.1 F-79-17-131/42-98%. Exam nonacute. Abdomen nondistended with tender epigastric and right upper quadrant. WBC 9.7-RBC 2.49L-Hgb 7.2L-HCT 20 2.8L-RDW 50 4.4H-PLT 232 with normal differential. CMP notable for sodium 132L, BUN 30 7H, creatinine 1.6H with EGFR 30 2L. GLU 139H. Calcium 8.4L troponin was negative. UA was normal. Blood type is B+. Antibody screen negative. Gallbladder ultrasound: No acute abnormalities, apparent solid nodule in right upper pole of right kidney, CT with contrast or MRII recommended. CT abdomen pelvis: Moderate size hiatal hernia with eccentric soft tissue thickening possibly related to hernia but could not exclude mass, recommended endoscopic or barium swallow to further assess. Solid mass right upper pole and right kidney possibly neoplastic. No evidence of SBO or acute pancreatitis. 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 Chest x-ray: No acute abnormalities. Unable to get beds in local hospital, transferred to [facility]. Anemia due to GI blood loss 10/24/201903/05 Last Assessment & Plan: Assessment & PLAN: See above Renal cell carcinoma 10/24/2019 09/12/2021 Last Assessment & Plan: Currently following with urology (Dr. Wagner) outpatient for routine surveillance imaging MRI kidney on 07/11/19 noting stable 2.2 cm right renal mass No plans for surgical intervention at this time Diverticulitis of large inte farooq with perforation and abscess without bleeding 06/16/2019 09/12/2021 Other chest pain 03/27/2019 09/19/2020 Overview: 03/24/19 CTA chest/ thorax: 1. Small incompletely occluded PE 2nd and 3rd branch right upper lobe PA; 2. Stable cardiac enlargement; Moderate calcification aortic root with 4.5cm fusiform dilatation mid-ascending aorta; 3. Atherosclerotic calcifications with ostial stenosis celiac trunk, SMA, bilateral renal arteries; 4. Small dependent pleural effusions, larger on right, compressive atelectasis posterior lung bases. 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 Wakes up in the middle of the night feeling she has to eat.has a gnawing of the stomach. Routine health maintenance 01/08/201409/12 Overview: Had her feet tested for diabetes, January 2014, patient was Normal, for monofilament, i did not have the lower frequency tuning fork, but it seemed that with the higher one she could not feel the vibration. On January 2014, she needed a mammogram, colonosocpy, and BMD, she want the colonoscopy in the fall. Last Assessment & Plan: She has an appointment for the colonoscopy initial eval coming up, BMD was normal, discussed with the patient. SUMMARY 12/09/2013 12/22/2018 Overview: Htn, HPL, diabetes uncontrolled with hypoglycemia, aortic bioprosthetic valve, on xeralto, with mitral and aortic valves regurgitating, needs Yearly, Echo. Skin cancer , recent excision, Next visit need to do all the preventive measures. PVD and Carotid artery details, endocervical cancer. need to be probed into, got this form her previous records, patient did not mention to us. Carotid artery disease 12/09/2013 Overview: Per her records Type 2 diabetes mellitus wit hout complication, without long-term current use of insulin 11/20/2013 09/12/2021 Overview: 2008; has been well controlled for a while. Metformin caused her diarrhea. Patient had her eyes examined in [place] this year and was told that she had no retinopathy. December 09.5, she has been running around that for the last couple years, didn't take careof he diabetes. Last Assessment & Plan: Last a1c 7.1 on 06/07/19 Not on any home meds at this time (intolerance to metformin in past) Hemoglobin A1C (%) Date Value 10/24/2019 7.0 Follow up with pcp for discussion on initiating therapy documented as of this encounter (statuses as of 09/29/2022) [facility]09-[facility]-2022 History of Past illness Narrative* Problem Noted Date Resolved Date Acute on chronic systolic heart failure 03/19/20 22 03/22/2022 Melena 02/22/2022 02/24/2022 Acute kidney injury 02/22/2022 02/24/2022 Encounter for support and coordination of transi tion of care 02/15/2021 09/12/2021 Overview: 02/13/[address] Ferguson's office following gallbladder ultrasound demonstrating sludge. Admitted to some black stools but not bloody. Patient had Hgb of 7.2, hem positive stool. Vital signs 98.1 F-79-17-131/42-98%. Exam nonacute. Abdomen nondistended with tender epigastric and right upper quadrant. WBC 9.7-RBC 2.49L-Hgb 7.2L-HCT 20 2.8L-RDW 50 4.4H-PLT 232 with normal differential. CMP notable for sodium 132L, BUN 30 7H, creatinine 1.6H with EGFR 30 2L. GLU 139H. Calcium 8.4L troponin was negative. UA was normal. Blood type is B+. Antibody screen negative. Gallbladder ultrasound: No acute abnormalities, apparent solid nodule in right upper pole of right kidney, CT with contrast or MRII recommended. CT abdomen pelvis: Moderate size hiatal hernia with eccentric soft tissue thickening possibly related to hernia but could not exclude mass, recommended endoscopic or barium swallow to further assess. Solid mass right upper pole and right kidney possibly neoplastic. No evidence of SBO or acute pancreatitis. 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 Chest x-ray: No acute abnormalities. Unable to get beds in local hospital, transferred to [facility]. Anemia due to GI blood loss 10/24/201903/05 Last Assessment & Plan: Assessment & PLAN: See above Renal cell carcinoma 10/24/2019 09/12/2021 Last Assessment & Plan: Currently following with urology (Dr. Wagner) outpatient for routine surveillance imaging MRI kidney on 07/11/19 noting stable 2.2 cm right renal mass No plans for surgical intervention at this time Diverticulitis of large inte farooq with perforation and abscess without bleeding 06/16/2019 09/12/2021 Other chest pain 03/27/2019 09/19/2020 Overview: 03/24/19 CTA chest/ thorax: 1. Small incompletely occluded PE 2nd and 3rd branch right upper lobe PA; 2. Stable cardiac enlargement; Moderate calcification aortic root with 4.5cm fusiform dilatation mid-ascending aorta; 3. Atherosclerotic calcifications with ostial stenosis celiac trunk, SMA, bilateral renal arteries; 4. Small dependent pleural effusions, larger on right, compressive atelectasis posterior lung bases. 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 No evidence of residual filling, aneurysm recurrence or coil impaction. Patent intracranial circulation. 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 Neurology f/u [address] 2018 Abdominal pain 02/26/2014 03/21/2022 Last Assessment & Plan: She has been having abdominal discomfort for the last 3 weeks. Wakes up in the middle of the night feeling she has to eat.has a gnawing of the stomach. Routine health maintenance 01/08/201409/12 Overview: Had her feet tested for diabetes, January 2014, patient was Normal, for monofilament, i did not have the lower frequency tuning fork, but it seemed that with the higher one she could not feel the vibration. On January 2014, she needed a mammogram, colonosocpy, and BMD, she want the colonoscopy in the fall. Last Assessment & Plan: She has an appointment for the colonoscopy initial eval coming up, BMD was normal, discussed with the patient. SUMMARY 12/09/2013 12/22/2018 Overview: Htn, HPL, diabetes uncontrolled with hypoglycemia, aortic bioprosthetic valve, on xeralto, with mitral and aortic valves regurgitating, needs Yearly, Echo. Skin cancer , recent excision, Next visit need to do all the preventive measures. PVD and Carotid artery details, endocervical cancer. need to be probed into, got this form her previous records, patient did not mention to us. Carotid artery disease 12/09/2013 Overview: Per her records Type 2 diabetes mellitus wit hout complication, without long-term current use of insulin 11/20/2013 09/12/2021 Overview: 2008; has been well controlled for a while. Metformin caused her diarrhea. Patient had her eyes examined in [place] this year and was told that she had no retinopathy. December 7.5, she has been running around that for the last couple years, didn't take careof he diabetes. Last Assessment & Plan: Last a1c 7.1 on 06/07/19 Not on any home meds at this time (intolerance to metformin in past) Hemoglobin A1C (%) Date Value 10/24/2019 7.0 Follow up with pcp for discussion on initiating therapy documented as of this encounter (statuses as of 10/07/2022) [facility]09[facility] History of Past illness Narrative* Problem Noted Date Resolved Date Acute on chronic systolic heart failure 03/19/20 22 03/22/2022 Melena 02/22/2022 02/24/2022 Acute kidney injury 02/22/2022 02/24/2022 Encounter for support and coordination of transi tion of care 02/15/2021 09/12/2021 Overview: 02/13/[address] Ferguson's office following gallbladder ultrasound demonstrating sludge. Admitted to some black stools but not bloody. Patient had Hgb of 7.2, hem positive stool. Vital signs 98.1 F-79-17-131/42-98%. Exam nonacute. Abdomen nondistended with tender epigastric and right upper quadrant. WBC 9.7-RBC 2.49L-Hgb 7.2L-HCT 20 2.8L-RDW 50 4.4H-PLT 232 with normal differential. CMP notable for sodium 132L, BUN 30 7H, creatinine 1.6H with EGFR 30 2L. GLU 139H. Calcium 8.4L troponin was negative. UA was normal. Blood type is B+. Antibody screen negative. Gallbladder ultrasound: No acute abnormalities, apparent solid nodule in right upper pole of right kidney, CT with contrast or MRII recommended. CT abdomen pelvis: Moderate size hiatal hernia with eccentric soft tissue thickening possibly related to hernia but could not exclude mass, recommended endoscopic or barium swallow to further assess. Solid mass right upper pole and right kidney possibly neoplastic. No evidence of SBO or acute pancreatitis. 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 Chest x-ray: No acute abnormalities. Unable to get beds in local hospital, transferred to [facility]. Anemia due to GI blood loss 10/24/201903/05 Last Assessment & Plan: Assessment & PLAN: See above Renal cell carcinoma 10/24/2019 09/12/2021 Last Assessment & Plan: Currently following with urology (Dr. Wagner) outpatient for routine surveillance imaging MRI kidney on 07/11/19 noting stable 2.2 cm right renal mass No plans for surgical intervention at this time Diverticulitis of large inte farooq with perforation and abscess without bleeding 06/16/2019 09/12/2021 Other chest pain 03/27/2019 09/19/2020 Overview: 03/24/19 CTA chest/ thorax: 1. Small incompletely occluded PE 2nd and 3rd branch right upper lobe PA; 2. Stable cardiac enlargement; Moderate calcification aortic root with 4.5cm fusiform dilatation mid-ascending aorta; 3. Atherosclerotic calcifications with ostial stenosis celiac trunk, SMA, bilateral renal arteries; 4. Small dependent pleural effusions, larger on right, compressive atelectasis posterior lung bases. 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 No evidence of residual filling, aneurysm recurrence or coil impaction. Patent intracranial circulation. 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 Neurology f/u [address] 2018 Abdominal pain 02/26/2014 03/21/2022 Last Assessment & Plan: She has been having abdominal discomfort for the last 3 weeks. Wakes up in the middle of the night feeling she has to eat.has a gnawing of the stomach. Routine health maintenance 01/08/201409/12 Overview: Had her feet tested for diabetes, January 2014, patient was Normal, for monofilament, i did not have the lower frequency tuning fork, but it seemed that with the higher one she could not feel the vibration. On January 2014, she needed a mammogram, colonosocpy, and BMD, she want the colonoscopy in the fall. Last Assessment & Plan: She has an appointment for the colonoscopy initial eval coming up, BMD was normal, discussed with the patient. SUMMARY 12/09/2013 12/22/2018 Overview: Htn, HPL, diabetes uncontrolled with hypoglycemia, aortic bioprosthetic valve, on xeralto, with mitral and aortic valves regurgitating, needs Yearly, Echo. Skin cancer , recent excision, Next visit need to do all the preventive measures. PVD and Carotid artery details, endocervical cancer. need to be probed into, got this form her previous records, patient did not mention to us. Carotid artery disease 12/09/2013 2 Overview: Per her records Type 2 diabetes mellitus wit hout complication, without long-term current use of insulin 11/20/2013 09/12/2021 Overview: 2008; has been well controlled for a while. Metformin caused her diarrhea. Patient had her eyes examined in [place] this year and was told that she had no retinopathy. December 09.5, she has been running around that for the last couple years, didn't take careof he diabetes. Last Assessment & Plan: Last a1c 7.1 on 06/07/19 Not on any home meds at this time (intolerance to metformin in past) Hemoglobin A1C (%) Date Value 10/24/2019 7.0 Follow up with pcp for discussion on initiating therapy documented as of this encounter (statuses as of 12/29/2022) [facility]09[facility] History of Past illness Narrative* Problem Noted Date Diagnosed Date Resolved Date Acute on chronic systolic heart failure 03/19/2022 03/22/2022 Melena 02/22/2022 02/24/2022 Acute kidney injury 02/22/2022 02/25/20 22 Encounter for support and co ordination of transition of care 02/15/2021 09/12/2021 Overview: 02/13/[address] Ferguson's office following gallbladder ultrasound demonstrating sludge. Admitted to some black stools but not bloody. Patient had Hgb of 7.2, hem positive stool. Vital signs 98.1 F-79-17-131/42-98%. Exam nonacute. Abdomen nondistended with tender epigastric and right upper quadrant. WBC 9.7-RBC 2.49L-Hgb 7.2L-HCT 20 2.8L-RDW 50 4.4H-PLT 232 with normal differential. CMP notable for sodium 132L, BUN 30 7H, creatinine 1.6H with EGFR 30 2L. GLU 139H. Calcium 8.4L troponin was negative. UA was normal. Blood type is B+. Antibody screen negative. Gallbladder ultrasound: No acute abnormalities, apparent solid nodule in right upper pole of right kidney, CT with contrast or MRII recommended. CT abdomen pelvis: Moderate size hiatal hernia with eccentric soft tissue thickening possibly related to hernia but could not exclude mass, recommended endoscopic or barium swallow to further assess. Solid mass right upper pole and right kidney possibly neoplastic. No evidence of SBO or acute pancreatitis. 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 Chest x-ray: No acute abnormalities. Unable to get beds in local hospital, transferred to [facility]. Anemia due to GI blood loss 10/24/2019 03/22/2022 Last Assessment & Plan: Assessment & PLAN: See above Renal cell carcinoma 10/24/2019 022 Last Assessment & Plan: Currently following with urology (Dr. Wagner) outpatient for routine surveillance imaging MRI kidney on 07/11/19 noting stable 2.2 cm right renal mass No plans for surgical intervention at this time Diverticulitis of large inte farooq with perforation and abscess without bleeding 06/16/2019 09/12/2021 Other chest pain 03/27/2019 09/19/2020 Overview: 03/24/19 CTA chest/ thorax: 1. Small incompletely occluded PE 2nd and 3rd branch right upper lobe PA; 2. Stable cardiac enlargement; Moderate calcification aortic root with 4.5cm fusiform dilatation mid-ascending aorta; 3. Atherosclerotic calcifications with ostial stenosis celiac trunk, SMA, bilateral renal arteries; 4. Small dependent pleural effusions, larger on right, compressive atelectasis posterior lung bases. 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 No evidence of residual filling, aneurysm recurrence or coil impaction. Patent intracranial circulation. 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 Neurology f/u [address] 2018 Abdominal pain 02/26/2014 03/21/2022 Last Assessment & Plan: She has been having abdominal discomfort for the last 3 weeks. Wakes up in the middle of the night feeling she has to eat.has a gnawing of the stomach. Routine health maintenance 01/08/2014 0 09/12/2021 Overview: Had her feet tested for diabetes, January 2014, patient was Normal, for monofilament, i did not have the lower frequency tuning fork, but it seemed that with the higher one she could not feel the vibration. On January 2014, she needed a mammogram, colonosocpy, and BMD, she want the colonoscopy in the fall. Last Assessment & Plan: She has an appointment for the colonoscopy initial eval coming up, BMD was normal, discussed with the patient. SUMMARY 12/09/2013 12/22/2018 Overview: Htn, HPL, diabetes uncontrolled with hypoglycemia, aortic bioprosthetic valve, on xeralto, with mitral and aortic valves regurgitating, needs Yearly, Echo. Skin cancer , recent excision, Next visit need to do all the preventive measures. PVD and Carotid artery details, endocervical cancer. need to be probed into, got this form her previous records, patient did not mention to us. Carotid artery disease 12/09/201309/12 Overview: Per her records Type 2 diabetes mellitus wit hout complication, without long-term current use of insulin 11/20/2013 09/12/2021 Overview: 2008; has been well controlled for a while. Metformin caused her diarrhea. Patient had her eyes examined in [place] this year and was told that she had no retinopathy. December 7.5, she has been running around that for the last couple years, didn't take careof he diabetes. Last Assessment & Plan: Last a1c 7.1 on 06/07/19 Not on any home meds at this time (intolerance to metformin in past) Hemoglobin A1C (%) Date Value 10/24/2019 7.0 Follow up with pcp for discussion on initiating therapy documented as of this encounter (statuses as of 01/09/2023) [facility]09-15-2022 History of Past illness Narrative* Problem Noted Date Diagnosed Date Resolved Date Acute on chronic systolic heart failure 03/19/2022 03/22/2022 Melena 02/22/2022 02/24/2022 Acute kidney injury 02/22/2022 02/25/20 Encounter for support and co ordination of transition of care 02/15/2021 09/12/2021 Overview: 02/13/[address] Ferguson's office following gallbladder ultrasound demonstrating sludge. Admitted to some black stools but not bloody. Patient had Hgb of 7.2, hem positive stool. Vital signs 98.1 F-79-17-131/42-98%. Exam nonacute. Abdomen nondistended with tender epigastric and right upper quadrant. WBC 9.7-RBC 2.49L-Hgb 7.2L-HCT 20 2.8L-RDW 50 4.4H-PLT 232 with normal differential. CMP notable for sodium 132L, BUN 30 7H, creatinine 1.6H with EGFR 30 2L. GLU 139H. Calcium 8.4L troponin was negative. UA was normal. Blood type is B+. Antibody screen negative. Gallbladder ultrasound: No acute abnormalities, apparent solid nodule in right upper pole of right kidney, CT with contrast or MRII recommended. CT abdomen pelvis: Moderate size hiatal hernia with eccentric soft tissue thickening possibly related to hernia but could not exclude mass, recommended endoscopic or barium swallow to further assess. Solid mass right upper pole and right kidney possibly neoplastic. No evidence of SBO or acute pancreatitis. 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 Chest x-ray: No acute abnormalities. Unable to get beds in local hospital, transferred to [facility]. Anemia due to GI blood loss 10/24/2019 03/22/2022 Last Assessment & Plan: Assessment & PLAN: See above Renal cell carcinoma 10/24/2019 022 Last Assessment & Plan: Currently following with urology (Dr. Wagner) outpatient for routine surveillance imaging MRI kidney on 07/11/19 noting stable 2.2 cm right renal mass No plans for surgical intervention at this time Diverticulitis of large inte farooq with perforation and abscess without bleeding 06/16/2019 09/12/2021 Other chest pain 03/27/2019 09/19/2020 Overview: 03/24/19 CTA chest/ thorax: 1. Small incompletely occluded PE 2nd and 3rd branch right upper lobe PA; 2. Stable cardiac enlargement; Moderate calcification aortic root with 4.5cm fusiform dilatation mid-ascending aorta; 3. Atherosclerotic calcifications with ostial stenosis celiac trunk, SMA, bilateral renal arteries; 4. Small dependent pleural effusions, larger on right, compressive atelectasis posterior lung bases. 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 No evidence of residual filling, aneurysm recurrence or coil impaction. Patent intracranial circulation. 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 Neurology f/u [address] 2018 Abdominal pain 02/26/2014 03/21/2022 Last Assessment & Plan: She has been having abdominal discomfort for the last 3 weeks. Wakes up in the middle of the night feeling she has to eat.has a gnawing of the stomach. Routine health maintenance 01/08/2014 0 09/12/2021 Overview: Had her feet tested for diabetes, January 2014, patient was Normal, for monofilament, i did not have the lower frequency tuning fork, but it seemed that with the higher one she could not feel the vibration. On January 2014, she needed a mammogram, colonosocpy, and BMD, she want the colonoscopy in the fall. Last Assessment & Plan: She has an appointment for the colonoscopy initial eval coming up, BMD was normal, discussed with the patient. SUMMARY 12/09/2013 12/22/2018 Overview: Htn, HPL, diabetes uncontrolled with hypoglycemia, aortic bioprosthetic valve, on xeralto, with mitral and aortic valves regurgitating, needs Yearly, Echo. Skin cancer , recent excision, Next visit need to do all the preventive measures. PVD and Carotid artery details, endocervical cancer. need to be probed into, got this form her previous records, patient did not mention to us. Carotid artery disease 12/09/201309/12 Overview: Per her records Type 2 diabetes mellitus wit hout complication, without long-term current use of insulin 11/20/2013 09/12/2021 Overview: 2008; has been well controlled for a while. Metformin caused her diarrhea. Patient had her eyes examined in [place] this year and was told that she had no retinopathy. December 7.5, she has been running around that for the last couple years, didn't take careof he diabetes. Last Assessment & Plan: Last a1c 7.1 on 06/07/19 Not on any home meds at this time (intolerance to metformin in past) Hemoglobin A1C (%) Date Value 10/24/2019 7.0 Follow up with pcp for discussion on initiating therapy documented as of this encounter (statuses as of 01/28/2023) [facility]09-[facility]-2022 History of Past illness Narrative* Problem Noted Date Diagnosed Date Resolved Date Acute on chronic systolic heart failure 03/19/2022 03/22/2022 Melena 02/22/2022 02/24/2022 Acute kidney injury 02/22/2022 02/25/20 22 Encounter for support and co ordination of transition of care 02/15/2021 09/12/2021 Overview: 02/13/[address] Ferguson's office following gallbladder ultrasound demonstrating sludge. Admitted to some black stools but not bloody. Patient had Hgb of 7.2, hem positive stool. Vital signs 98.1 F-79-17-131/42-98%. Exam nonacute. Abdomen nondistended with tender epigastric and right upper quadrant. WBC 9.7-RBC 2.49L-Hgb 7.2L-HCT 20 2.8L-RDW 50 4.4H-PLT 232 with normal differential. CMP notable for sodium 132L, BUN 30 7H, creatinine 1.6H with EGFR 30 2L. GLU 139H. Calcium 8.4L troponin was negative. UA was normal. Blood type is B+. Antibody screen negative. Gallbladder ultrasound: No acute abnormalities, apparent solid nodule in right upper pole of right kidney, CT with contrast or MRII recommended. CT abdomen pelvis: Moderate size hiatal hernia with eccentric soft tissue thickening possibly related to hernia but could not exclude mass, recommended endoscopic or barium swallow to further assess. Solid mass right upper pole and right kidney possibly neoplastic. No evidence of SBO or acute pancreatitis. 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 Chest x-ray: No acute abnormalities. Unable to get beds in local hospital, transferred to [facility]. Anemia due to GI blood loss 10/24/2019 03/22/2022 Last Assessment & Plan: Assessment & PLAN: See above Renal cell carcinoma 10/24/2019 022 Last Assessment & Plan: Currently following with urology (Dr. Wagner) outpatient for routine surveillance imaging MRI kidney on 07/11/19 noting stable 2.2 cm right renal mass No plans for surgical intervention at this time Diverticulitis of large inte farooq with perforation and abscess without bleeding 06/16/2019 09/12/2021 Other chest pain 03/27/2019 09/19/2020 Overview: 03/24/19 CTA chest/ thorax: 1. Small incompletely occluded PE 2nd and 3rd branch right upper lobe PA; 2. Stable cardiac enlargement; Moderate calcification aortic root with 4.5cm fusiform dilatation mid-ascending aorta; 3. Atherosclerotic calcifications with ostial stenosis celiac trunk, SMA, bilateral renal arteries; 4. Small dependent pleural effusions, larger on right, compressive atelectasis posterior lung bases. 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 No evidence of residual filling, aneurysm recurrence or coil impaction. Patent intracranial circulation. 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 Neurology f/u [address] 2018 Abdominal pain 02/26/2014 03/21/2022 Last Assessment & Plan: She has been having abdominal discomfort for the last 3 weeks. Wakes up in the middle of the night feeling she has to eat.has a gnawing of the stomach. Routine health maintenance 01/08/2014 0 09/12/2021 Overview: Had her feet tested for diabetes, January 2014, patient was Normal, for monofilament, i did not have the lower frequency tuning fork, but it seemed that with the higher one she could not feel the vibration. On January 2014, she needed a mammogram, colonosocpy, and BMD, she want the colonoscopy in the fall. Last Assessment & Plan: She has an appointment for the colonoscopy initial eval coming up, BMD was normal, discussed with the patient. SUMMARY 12/09/2013 12/22/2018 Overview: Htn, HPL, diabetes uncontrolled with hypoglycemia, aortic bioprosthetic valve, on xeralto, with mitral and aortic valves regurgitating, needs Yearly, Echo. Skin cancer , recent excision, Next visit need to do all the preventive measures. PVD and Carotid artery details, endocervical cancer. need to be probed into, got this form her previous records, patient did not mention to us. Carotid artery disease 12/09/201309/12 Overview: Per her records Type 2 diabetes mellitus wit hout complication, without long-term current use of insulin 11/20/2013 09/12/2021 Overview: 2008; has been well controlled for a while. Metformin caused her diarrhea. Patient had her eyes examined in [place] this year and was told that she had no retinopathy. December 7.5, she has been running around that for the last couple years, didn't take careof he diabetes. Last Assessment & Plan: Last a1c 7.1 on 06/07/19 Not on any home meds at this time (intolerance to metformin in past) Hemoglobin A1C (%) Date Value 10/24/2019 7.0 Follow up with pcp for discussion on initiating therapy documented as of this encounter (statuses as of 03/15/2023) [facility]09-[facility]-2022 History of Past illness Narrative* Problem Noted Date Diagnosed Date Resolved Date Acute on chronic systolic heart failure 03/19/2022 03/22/2022 Melena 02/22/2022 02/24/2022 Acute kidney injury 02/22/2022 02/25/20 Encounter for support and co ordination of transition of care 02/15/2021 09/12/2021 Overview: 02/13/[address] Ferguson's office following gallbladder ultrasound demonstrating sludge. Admitted to some black stools but not bloody. Patient had Hgb of 7.2, hem positive stool. Vital signs 98.1 F-79-17-131/42-98%. Exam nonacute. Abdomen nondistended with tender epigastric and right upper quadrant. WBC 9.7-RBC 2.49L-Hgb 7.2L-HCT 20 2.8L-RDW 50 4.4H-PLT 232 with normal differential. CMP notable for sodium 132L, BUN 30 7H, creatinine 1.6H with EGFR 30 2L. GLU 139H. Calcium 8.4L troponin was negative. UA was normal. Blood type is B+. Antibody screen negative. Gallbladder ultrasound: No acute abnormalities, apparent solid nodule in right upper pole of right kidney, CT with contrast or MRII recommended. CT abdomen pelvis: Moderate size hiatal hernia with eccentric soft tissue thickening possibly related to hernia but could not exclude mass, recommended endoscopic or barium swallow to further assess. Solid mass right upper pole and right kidney possibly neoplastic. No evidence of SBO or acute pancreatitis. 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 Chest x-ray: No acute abnormalities. Unable to get beds in local hospital, transferred to [facility]. Anemia due to GI blood loss 10/24/2019 03/22/2022 Last Assessment & Plan: Assessment & PLAN: See above Renal cell carcinoma 10/24/2019 022 Last Assessment & Plan: Currently following with urology (Dr. Wagner) outpatient for routine surveillance imaging MRI kidney on 07/11/19 noting stable 2.2 cm right renal mass No plans for surgical intervention at this time Diverticulitis of large inte farooq with perforation and abscess without bleeding 06/16/2019 09/12/2021 Other chest pain 03/27/2019 09/19/2020 Overview: 03/24/19 CTA chest/ thorax: 1. Small incompletely occluded PE 2nd and 3rd branch right upper lobe PA; 2. Stable cardiac enlargement; Moderate calcification aortic root with 4.5cm fusiform dilatation mid-ascending aorta; 3. Atherosclerotic calcifications with ostial stenosis celiac trunk, SMA, bilateral renal arteries; 4. Small dependent pleural effusions, larger on right, compressive atelectasis posterior lung bases. 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 No evidence of residual filling, aneurysm recurrence or coil impaction. Patent intracranial circulation. 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 Neurology f/u [address] 2018 Abdominal pain 02/26/2014 03/21/2022 Last Assessment & Plan: She has been having abdominal discomfort for the last 3 weeks. Wakes up in the middle of the night feeling she has to eat.has a gnawing of the stomach. Routine health maintenance 01/08/2014 0 09/12/2021 Overview: Had her feet tested for diabetes, January 2014, patient was Normal, for monofilament, i did not have the lower frequency tuning fork, but it seemed that with the higher one she could not feel the vibration. On January 2014, she needed a mammogram, colonosocpy, and BMD, she want the colonoscopy in the fall. Last Assessment & Plan: She has an appointment for the colonoscopy initial eval coming up, BMD was normal, discussed with the patient. SUMMARY 12/09/2013 12/22/2018 Overview: Htn, HPL, diabetes uncontrolled with hypoglycemia, aortic bioprosthetic valve, on xeralto, with mitral and aortic valves regurgitating, needs Yearly, Echo. Skin cancer , recent excision, Next visit need to do all the preventive measures. PVD and Carotid artery details, endocervical cancer. need to be probed into, got this form her previous records, patient did not mention to us. Carotid artery disease 12/09/201309/12 Overview: Per her records Type 2 diabetes mellitus wit hout complication, without long-term current use of insulin 11/20/2013 09/12/2021 Overview: 2008; has been well controlled for a while. Metformin caused her diarrhea. Patient had her eyes examined in [place] this year and was told that she had no retinopathy. December 09., she has been running around that for the last couple years, didn't take careof he diabetes. Last Assessment & Plan: Last a1c 7.1 on 06/07/19 Not on any home meds at this time (intolerance to metformin in past) Hemoglobin A1C (%) Date Value 10/24/2019 7.0 Follow up with pcp for discussion on initiating therapy documented as of this encounter (statuses as of 03/28/2023) [facility]09[facility] History of Past illness Narrative* Problem Noted Date Diagnosed Date Resolved Date Acute on chronic systolic heart failure 03/19/2022 03/22/2022 Melena 02/22/2022 02/24/2022 Acute kidney injury 02/22/2022 02/25/20 22 Atrial fibrillation 01/12/2022 04/11/20 23 Encounter for support and co ordination of transition of care 02/15/2021 09/12/2021 Overview: 02/13/[address] Ferguson's office following gallbladder ultrasound demonstrating sludge. Admitted to some black stools but not bloody. Patient had Hgb of 7.2, hem positive stool. Vital signs 98.1 F-79-17-131/42-98%. Exam nonacute. Abdomen nondistended with tender epigastric and right upper quadrant. WBC 9.7-RBC 2.49L-Hgb 7.2L-HCT 20 2.8L-RDW 50 4.4H-PLT 232 with normal differential. CMP notable for sodium 132L, BUN 30 7H, creatinine 1.6H with EGFR 30 2L. GLU 139H. Calcium 8.4L troponin was negative. UA was normal. Blood type is B+. Antibody screen negative. Gallbladder ultrasound: No acute abnormalities, apparent solid nodule in right upper pole of right kidney, CT with contrast or MRII recommended. CT abdomen pelvis: Moderate size hiatal hernia with eccentric soft tissue thickening possibly related to hernia but could not exclude mass, recommended endoscopic or barium swallow to further assess. Solid mass right upper pole and right kidney possibly neoplastic. No evidence of SBO or acute pancreatitis. 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 Chest x-ray: No acute abnormalities. Unable to get beds in local hospital, transferred to [facility]. Anemia due to GI blood loss 10/24/2019 03/22/2022 Last Assessment & Plan: Assessment & PLAN: See above Renal cell carcinoma 10/24/2019 022 Last Assessment & Plan: Currently following with urology (Dr. Wagner) outpatient for routine surveillance imaging MRI kidney on 07/11/19 noting stable 2.2 cm right renal mass No plans for surgical intervention at this time Diverticulitis of large inte farooq with perforation and abscess without bleeding 06/16/2019 09/12/2021 Other chest pain 03/27/2019 09/19/2020 Overview: 03/24/19 CTA chest/ thorax: 1. Small incompletely occluded PE 2nd and 3rd branch right upper lobe PA; 2. Stable cardiac enlargement; Moderate calcification aortic root with 4.5cm fusiform dilatation mid-ascending aorta; 3. Atherosclerotic calcifications with ostial stenosis celiac trunk, SMA, bilateral renal arteries; 4. Small dependent pleural effusions, larger on right, compressive atelectasis posterior lung bases. 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 No evidence of residual filling, aneurysm recurrence or coil impaction. Patent intracranial circulation. 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 Neurology f/u [address] 2019 Abdominal pain 02/26/2014 03/21/2022 Last Assessment & Plan: She has been having abdominal discomfort for the last 3 weeks. Wakes up in the middle of the night feeling she has to eat.has a gnawing of the stomach. Routine health maintenance 01/08/2014 0 09/12/2021 Overview: Had her feet tested for diabetes, January 2014, patient was Normal, for monofilament, i did not have the lower frequency tuning fork, but it seemed that with the higher one she could not feel the vibration. On January 2014, she needed a mammogram, colonosocpy, and BMD, she want the colonoscopy in the fall. Last Assessment & Plan: She has an appointment for the colonoscopy initial eval coming up, BMD was normal, discussed with the patient. SUMMARY 12/09/2013 12/22/2018 Overview: Htn, HPL, diabetes uncontrolled with hypoglycemia, aortic bioprosthetic valve, on xeralto, with mitral and aortic valves regurgitating, needs Yearly, Echo. Skin cancer , recent excision, Next visit need to do all the preventive measures. PVD and Carotid artery details, endocervical cancer. need to be probed into, got this form her previous records, patient did not mention to us. Carotid artery disease 12/09/201309/12 Overview: Per her records Type 2 diabetes mellitus wit hout complication, without long-term current use of insulin 11/20/2013 09/12/2021 Overview: 2008; has been well controlled for a while. Metformin caused her diarrhea. Patient had her eyes examined in [place] this year and was told that she had no retinopathy. December 09.5, she has been running around that for the last couple years, didn't take careof he diabetes. Last Assessment & Plan: Last a1c 7.1 on 06/07/19 Not on any home meds at this time (intolerance to metformin in past) Hemoglobin A1C (%) Date Value 10/24/2019 7.0 Follow up with pcp for discussion on initiating therapy Paroxysmal atrial fibrillation 10/10/2013 04/11/2023 Overview: 11/19 Readmitted in with recurrent a fib and had elective cardioversion. 2013 recurrence with elective cardioversion started Xarelto First noted 1996 during AVR surgery Last Assessment & Plan: Currently in NSR Hold xarelto in setting of GI bleed Continue amiodarone Monitor on telemetry documented as of this encounter (statuses as of 05/07/2023) [facility]09-15-2022 History of Past illness Narrative* Problem Noted Date Diagnosed Date Resolved Date Acute on chronic systolic heart failure 03/19/2022 03/22/2022 Melena 02/22/2022 02/24/2022 Acute kidney injury 02/22/2022 02/25/20 22 Atrial fibrillation 01/12/2022 04/11/20 23 Encounter for support and co ordination of transition of care 02/15/2021 09/12/2021 Overview: 02/13/[address] Ferguson's office following gallbladder ultrasound demonstrating sludge. Admitted to some black stools but not bloody. Patient had Hgb of 7.2, hem positive stool. Vital signs 98.1 F-79-17-131/42-98%. Exam nonacute. Abdomen nondistended with tender epigastric and right upper quadrant. WBC 9.7-RBC 2.49L-Hgb 7.2L-HCT 20 2.8L-RDW 50 4.4H-PLT 232 with normal differential. CMP notable for sodium 132L, BUN 30 7H, creatinine 1.6H with EGFR 30 2L. GLU 139H. Calcium 8.4L troponin was negative. UA was normal. Blood type is B+. Antibody screen negative. Gallbladder ultrasound: No acute abnormalities, apparent solid nodule in right upper pole of right kidney, CT with contrast or MRII recommended. CT abdomen pelvis: Moderate size hiatal hernia with eccentric soft tissue thickening possibly related to hernia but could not exclude mass, recommended endoscopic or barium swallow to further assess. Solid mass right upper pole and right kidney possibly neoplastic. No evidence of SBO or acute pancreatitis. 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 Chest x-ray: No acute abnormalities. Unable to get beds in local hospital, transferred to [facility]. Anemia due to GI blood loss 10/24/2019 03/22/2022 Last Assessment & Plan: Assessment & PLAN: See above Renal cell carcinoma 10/24/2019 022 Last Assessment & Plan: Currently following with urology (Dr. Wagner) outpatient for routine surveillance imaging MRI kidney on 07/11/19 noting stable 2.2 cm right renal mass No plans for surgical intervention at this time Diverticulitis of large inte farooq with perforation and abscess without bleeding 06/16/2019 09/12/2021 Other chest pain 03/27/2019 09/19/2020 Overview: 03/24/19 CTA chest/ thorax: 1. Small incompletely occluded PE 2nd and 3rd branch right upper lobe PA; 2. Stable cardiac enlargement; Moderate calcification aortic root with 4.5cm fusiform dilatation mid-ascending aorta; 3. Atherosclerotic calcifications with ostial stenosis celiac trunk, SMA, bilateral renal arteries; 4. Small dependent pleural effusions, larger on right, compressive atelectasis posterior lung bases. 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 No evidence of residual filling, aneurysm recurrence or coil impaction. Patent intracranial circulation. 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 Neurology f/u [address] 2019 Abdominal pain 02/26/2014 03/21/2022 Last Assessment & Plan: She has been having abdominal discomfort for the last 3 weeks. Wakes up in the middle of the night feeling she has to eat.has a gnawing of the stomach. Routine health maintenance 01/08/2014 0 09/12/2021 Overview: Had her feet tested for diabetes, January 2014, patient was Normal, for monofilament, i did not have the lower frequency tuning fork, but it seemed that with the higher one she could not feel the vibration. On January 2014, she needed a mammogram, colonosocpy, and BMD, she want the colonoscopy in the fall. Last Assessment & Plan: She has an appointment for the colonoscopy initial eval coming up, BMD was normal, discussed with the patient. SUMMARY 12/09/2013 12/22/2018 Overview: Htn, HPL, diabetes uncontrolled with hypoglycemia, aortic bioprosthetic valve, on xeralto, with mitral and aortic valves regurgitating, needs Yearly, Echo. Skin cancer , recent excision, Next visit need to do all the preventive measures. PVD and Carotid artery details, endocervical cancer. need to be probed into, got this form her previous records, patient did not mention to us. Carotid artery disease 12/09/201309/12 Overview: Per her records Type 2 diabetes mellitus wit hout complication, without long-term current use of insulin 11/20/2013 09/12/2021 Overview: 2008; has been well controlled for a while. Metformin caused her diarrhea. Patient had her eyes examined in [place] this year and was told that she had no retinopathy. December 09.5, she has been running around that for the last couple years, didn't take careof he diabetes. Last Assessment & Plan: Last a1c 7.1 on 06/07/19 Not on any home meds at this time (intolerance to metformin in past) Hemoglobin A1C (%) Date Value 10/24/2019 7.0 Follow up with pcp for discussion on initiating therapy Paroxysmal atrial fibrillation 10/10/2013 04/11/2023 Overview: 11/19 Readmitted in with recurrent a fib and had elective cardioversion. 2013 recurrence with elective cardioversion started Xarelto First noted 1996 during AVR surgery Last Assessment & Plan: Currently in NSR Hold xarelto in setting of GI bleed Continue amiodarone Monitor on telemetry documented as of this encounter (statuses as of 05/07/2023) [facility]09-15-2022 History of Past illness Narrative* Problem Noted Date Diagnosed Date Resolved Date Acute on chronic systolic heart failure 03/19/2022 03/22/2022 Melena 02/22/2022 02/24/2022 Acute kidney injury 02/22/2022 02/25/20 22 Atrial fibrillation 01/12/2022 04/11/20 23 Encounter for support and co ordination of transition of care 02/15/2021 09/12/2021 Overview: 02/13/[address] Ferguson's office following gallbladder ultrasound demonstrating sludge. Admitted to some black stools but not bloody. Patient had Hgb of 7.2, hem positive stool. Vital signs 98.1 F-79-17-131/42-98%. Exam nonacute. Abdomen nondistended with tender epigastric and right upper quadrant. WBC 9.7-RBC 2.49L-Hgb 7.2L-HCT 20 2.8L-RDW 50 4.4H-PLT 232 with normal differential. CMP notable for sodium 132L, BUN 30 7H, creatinine 1.6H with EGFR 30 2L. GLU 139H. Calcium 8.4L troponin was negative. UA was normal. Blood type is B+. Antibody screen negative. Gallbladder ultrasound: No acute abnormalities, apparent solid nodule in right upper pole of right kidney, CT with contrast or MRII recommended. CT abdomen pelvis: Moderate size hiatal hernia with eccentric soft tissue thickening possibly related to hernia but could not exclude mass, recommended endoscopic or barium swallow to further assess. Solid mass right upper pole and right kidney possibly neoplastic. No evidence of SBO or acute pancreatitis. 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 Chest x-ray: No acute abnormalities. Unable to get beds in local hospital, transferred to [facility]. Anemia due to GI blood loss 10/24/2019 03/22/2022 Last Assessment & Plan: Assessment & PLAN: See above Renal cell carcinoma 10/24/2019 022 Last Assessment & Plan: Currently following with urology (Dr. Wagner) outpatient for routine surveillance imaging MRI kidney on 07/11/19 noting stable 2.2 cm right renal mass No plans for surgical intervention at this time Diverticulitis of large inte farooq with perforation and abscess without bleeding 06/16/2019 09/12/2021 Other chest pain 03/27/2019 09/19/2020 Overview: 03/24/19 CTA chest/ thorax: 1. Small incompletely occluded PE 2nd and 3rd branch right upper lobe PA; 2. Stable cardiac enlargement; Moderate calcification aortic root with 4.5cm fusiform dilatation mid-ascending aorta; 3. Atherosclerotic calcifications with ostial stenosis celiac trunk, SMA, bilateral renal arteries; 4. Small dependent pleural effusions, larger on right, compressive atelectasis posterior lung bases. 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 No evidence of residual filling, aneurysm recurrence or coil impaction. Patent intracranial circulation. 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 Neurology f/u [address] 2018 Abdominal pain 02/26/2014 03/21/2022 Last Assessment & Plan: She has been having abdominal discomfort for the last 3 weeks. Wakes up in the middle of the night feeling she has to eat.has a gnawing of the stomach. Routine health maintenance 01/08/2014 0 09/12/2021 Overview: Had her feet tested for diabetes, January 2014, patient was Normal, for monofilament, i did not have the lower frequency tuning fork, but it seemed that with the higher one she could not feel the vibration. On January 2014, she needed a mammogram, colonosocpy, and BMD, she want the colonoscopy in the fall. Last Assessment & Plan: She has an appointment for the colonoscopy initial eval coming up, BMD was normal, discussed with the patient. SUMMARY 12/09/2013 12/22/2018 Overview: Htn, HPL, diabetes uncontrolled with hypoglycemia, aortic bioprosthetic valve, on xeralto, with mitral and aortic valves regurgitating, needs Yearly, Echo. Skin cancer , recent excision, Next visit need to do all the preventive measures. PVD and Carotid artery details, endocervical cancer. need to be probed into, got this form her previous records, patient did not mention to us. Carotid artery disease 12/09/201309/12 Overview: Per her records Type 2 diabetes mellitus wit hout complication, without long-term current use of insulin 11/20/2013 09/12/2021 Overview: 2008; has been well controlled for a while. Metformin caused her diarrhea. Patient had her eyes examined in [place] this year and was told that she had no retinopathy. December 09.5, she has been running around that for the last couple years, didn't take careof he diabetes. Last Assessment & Plan: Last a1c 7.1 on 06/07/19 Not on any home meds at this time (intolerance to metformin in past) Hemoglobin A1C (%) Date Value 10/24/2019 7.0 Follow up with pcp for discussion on initiating therapy Paroxysmal atrial fibrillation 10/10/2013 04/11/2023 Overview: 11/19 Readmitted in with recurrent a fib and had elective cardioversion. 2013 recurrence with elective cardioversion started Xarelto First noted 1996 during AVR surgery Last Assessment & Plan: Currently in NSR Hold xarelto in setting of GI bleed Continue amiodarone Monitor on telemetry documented as of this encounter (statuses as of 05/21/2023) [facility]09-15-2022 History of Past illness Narrative* Problem Noted Date Diagnosed Date Resolved Date Acute on chronic systolic heart failure 03/19/2022 03/22/2022 Melena 02/22/2022 02/24/2022 Acute kidney injury 02/22/2022 02/25/20 Atrial fibrillation 01/12/2022 04/11/20 Encounter for support and co ordination of transition of care 02/15/2021 09/12/2021 Overview: 02/13/[address] Ferguson's office following gallbladder ultrasound demonstrating sludge. Admitted to some black stools but not bloody. Patient had Hgb of 7.2, hem positive stool. Vital signs 98.1 F-79-17-131/42-98%. Exam nonacute. Abdomen nondistended with tender epigastric and right upper quadrant. WBC 9.7-RBC 2.49L-Hgb 7.2L-HCT 20 2.8L-RDW 50 4.4H-PLT 232 with normal differential. CMP notable for sodium 132L, BUN 30 7H, creatinine 1.6H with EGFR 30 2L. GLU 139H. Calcium 8.4L troponin was negative. UA was normal. Blood type is B+. Antibody screen negative. Gallbladder ultrasound: No acute abnormalities, apparent solid nodule in right upper pole of right kidney, CT with contrast or MRII recommended. CT abdomen pelvis: Moderate size hiatal hernia with eccentric soft tissue thickening possibly related to hernia but could not exclude mass, recommended endoscopic or barium swallow to further assess. Solid mass right upper pole and right kidney possibly neoplastic. No evidence of SBO or acute pancreatitis. 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 Chest x-ray: No acute abnormalities. Unable to get beds in local hospital, transferred to [facility]. Anemia due to GI blood loss 10/24/2019 03/22/2022 Last Assessment & Plan: Assessment & PLAN: See above Renal cell carcinoma 10/24/2019 022 Last Assessment & Plan: Currently following with urology (Dr. Wagner) outpatient for routine surveillance imaging MRI kidney on 07/11/19 noting stable 2.2 cm right renal mass No plans for surgical intervention at this time Diverticulitis of large inte farooq with perforation and abscess without bleeding 06/16/2019 09/12/2021 Other chest pain 03/27/2019 09/19/2020 Overview: 03/24/19 CTA chest/ thorax: 1. Small incompletely occluded PE 2nd and 3rd branch right upper lobe PA; 2. Stable cardiac enlargement; Moderate calcification aortic root with 4.5cm fusiform dilatation mid-ascending aorta; 3. Atherosclerotic calcifications with ostial stenosis celiac trunk, SMA, bilateral renal arteries; 4. Small dependent pleural effusions, larger on right, compressive atelectasis posterior lung bases. 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 No evidence of residual filling, aneurysm recurrence or coil impaction. Patent intracranial circulation. 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 Neurology f/u [address] 2018 Abdominal pain 02/26/2014 03/21/2022 Last Assessment & Plan: She has been having abdominal discomfort for the last 3 weeks. Wakes up in the middle of the night feeling she has to eat.has a gnawing of the stomach. Routine health maintenance 01/08/2014 0 09/12/2021 Overview: Had her feet tested for diabetes, January 2014, patient was Normal, for monofilament, i did not have the lower frequency tuning fork, but it seemed that with the higher one she could not feel the vibration. On January 2014, she needed a mammogram, colonosocpy, and BMD, she want the colonoscopy in the fall. Last Assessment & Plan: She has an appointment for the colonoscopy initial eval coming up, BMD was normal, discussed with the patient. SUMMARY 12/09/2013 12/22/2018 Overview: Htn, HPL, diabetes uncontrolled with hypoglycemia, aortic bioprosthetic valve, on xeralto, with mitral and aortic valves regurgitating, needs Yearly, Echo. Skin cancer , recent excision, Next visit need to do all the preventive measures. PVD and Carotid artery details, endocervical cancer. need to be probed into, got this form her previous records, patient did not mention to us. Carotid artery disease 12/09/201309/12 Overview: Per her records Type 2 diabetes mellitus wit hout complication, without long-term current use of insulin 11/20/2013 09/12/2021 Overview: 2008; has been well controlled for a while. Metformin caused her diarrhea. Patient had her eyes examined in [place] this year and was told that she had no retinopathy. December 7.5, she has been running around that for the last couple years, didn't take careof he diabetes. Last Assessment & Plan: Last a1c 7.1 on 06/07/19 Not on any home meds at this time (intolerance to metformin in past) Hemoglobin A1C (%) Date Value 10/24/2019 7.0 Follow up with pcp for discussion on initiating therapy Paroxysmal atrial fibrillation 10/10/2013 04/11/2023 Overview: 11/19 Readmitted in with recurrent a fib and had elective cardioversion. 2013 recurrence with elective cardioversion started Xarelto First noted 1996 during AVR surgery Last Assessment & Plan: Currently in NSR Hold xarelto in setting of GI bleed Continue amiodarone Monitor on telemetry documented as of this encounter (statuses as of 06/08/2023) [facility]09[facility] History of Past illness Narrative* Problem Noted Date Diagnosed Date Resolved Date Acute on chronic systolic heart failure 03/19/2022 03/22/2022 Melena 02/22/2022 02/24/2022 Acute kidney injury 02/22/2022 02/25/20 22 Atrial fibrillation 01/12/2022 04/11/20 23 Encounter for support and co ordination of transition of care 02/15/2021 09/12/2021 Overview: 02/13/[address] Ferguson's office following gallbladder ultrasound demonstrating sludge. Admitted to some black stools but not bloody. Patient had Hgb of 7.2, hem positive stool. Vital signs 98.1 F-79-17-131/42-98%. Exam nonacute. Abdomen nondistended with tender epigastric and right upper quadrant. WBC 9.7-RBC 2.49L-Hgb 7.2L-HCT 20 2.8L-RDW 50 4.4H-PLT 232 with normal differential. CMP notable for sodium 132L, BUN 30 7H, creatinine 1.6H with EGFR 30 2L. GLU 139H. Calcium 8.4L troponin was negative. UA was normal. Blood type is B+. Antibody screen negative. Gallbladder ultrasound: No acute abnormalities, apparent solid nodule in right upper pole of right kidney, CT with contrast or MRII recommended. CT abdomen pelvis: Moderate size hiatal hernia with eccentric soft tissue thickening possibly related to hernia but could not exclude mass, recommended endoscopic or barium swallow to further assess. Solid mass right upper pole and right kidney possibly neoplastic. No evidence of SBO or acute pancreatitis. 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 Chest x-ray: No acute abnormalities. Unable to get beds in local hospital, transferred to [facility]. Anemia due to GI blood loss 10/24/2019 03/22/2022 Last Assessment & Plan: Assessment & PLAN: See above Renal cell carcinoma 10/24/2019 022 Last Assessment & Plan: Currently following with urology (Dr. Wagner) outpatient for routine surveillance imaging MRI kidney on 07/11/19 noting stable 2.2 cm right renal mass No plans for surgical intervention at this time Diverticulitis of large inte farooq with perforation and abscess without bleeding 06/16/2019 09/12/2021 Other chest pain 03/27/2019 09/19/2020 Overview: 03/24/19 CTA chest/ thorax: 1. Small incompletely occluded PE 2nd and 3rd branch right upper lobe PA; 2. Stable cardiac enlargement; Moderate calcification aortic root with 4.5cm fusiform dilatation mid-ascending aorta; 3. Atherosclerotic calcifications with ostial stenosis celiac trunk, SMA, bilateral renal arteries; 4. Small dependent pleural effusions, larger on right, compressive atelectasis posterior lung bases. 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 No evidence of residual filling, aneurysm recurrence or coil impaction. Patent intracranial circulation. 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 Neurology f/u [address] 2018 Abdominal pain 02/26/2014 03/21/2022 Last Assessment & Plan: She has been having abdominal discomfort for the last 3 weeks. Wakes up in the middle of the night feeling she has to eat.has a gnawing of the stomach. Routine health maintenance 01/08/2014 0 09/12/2021 Overview: Had her feet tested for diabetes, January 2014, patient was Normal, for monofilament, i did not have the lower frequency tuning fork, but it seemed that with the higher one she could not feel the vibration. On January 2014, she needed a mammogram, colonosocpy, and BMD, she want the colonoscopy in the fall. Last Assessment & Plan: She has an appointment for the colonoscopy initial eval coming up, BMD was normal, discussed with the patient. SUMMARY 12/09/2013 12/22/2018 Overview: Htn, HPL, diabetes uncontrolled with hypoglycemia, aortic bioprosthetic valve, on xeralto, with mitral and aortic valves regurgitating, needs Yearly, Echo. Skin cancer , recent excision, Next visit need to do all the preventive measures. PVD and Carotid artery details, endocervical cancer. need to be probed into, got this form her previous records, patient did not mention to us. Carotid artery disease 12/09/201309/12 Overview: Per her records Type 2 diabetes mellitus wit hout complication, without long-term current use of insulin 11/20/2013 09/12/2021 Overview: 2008; has been well controlled for a while. Metformin caused her diarrhea. Patient had her eyes examined in [place] this year and was told that she had no retinopathy. December 7.5, she has been running around that for the last couple years, didn't take careof he diabetes. Last Assessment & Plan: Last a1c 7.1 on 06/07/19 Not on any home meds at this time (intolerance to metformin in past) Hemoglobin A1C (%) Date Value 10/24/2019 7.0 Follow up with pcp for discussion on initiating therapy Paroxysmal atrial fibrillation 10/10/2013 04/11/2023 Overview: 11/19 Readmitted in with recurrent a fib and had elective cardioversion. 2013 recurrence with elective cardioversion started Xarelto First noted 1996 during AVR surgery Last Assessment & Plan: Currently in NSR Hold xarelto in setting of GI bleed Continue amiodarone Monitor on telemetry documented as of this encounter (statuses as of 07/05/2023) [facility] History of Past illness Narrative* Problem Noted Date Diagnosed Date Resolved Date Acute on chronic systolic heart failure 03/19/2022 03/22/2022 Melena 02/22/2022 02/24/2022 Acute kidney injury 02/22/2022 02/25/20 22 Atrial fibrillation 01/12/2022 04/11/20 23 Encounter for support and co ordination of transition of care 02/15/2021 09/12/2021 Overview: 02/13/[address] Ferguson's office following gallbladder ultrasound demonstrating sludge. Admitted to some black stools but not bloody. Patient had Hgb of 7.2, hem positive stool. Vital signs 98.1 F-79-17-131/42-98%. Exam nonacute. Abdomen nondistended with tender epigastric and right upper quadrant. WBC 9.7-RBC 2.49L-Hgb 7.2L-HCT 20 2.8L-RDW 50 4.4H-PLT 232 with normal differential. CMP notable for sodium 132L, BUN 30 7H, creatinine 1.6H with EGFR 30 2L. GLU 139H. Calcium 8.4L troponin was negative. UA was normal. Blood type is B+. Antibody screen negative. Gallbladder ultrasound: No acute abnormalities, apparent solid nodule in right upper pole of right kidney, CT with contrast or MRII recommended. CT abdomen pelvis: Moderate size hiatal hernia with eccentric soft tissue thickening possibly related to hernia but could not exclude mass, recommended endoscopic or barium swallow to further assess. Solid mass right upper pole and right kidney possibly neoplastic. No evidence of SBO or acute pancreatitis. 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 Chest x-ray: No acute abnormalities. Unable to get beds in local hospital, transferred to [facility]. Anemia due to GI blood loss 10/24/2019 03/22/2022 Last Assessment & Plan: Assessment & PLAN: See above Renal cell carcinoma 10/24/2019 022 Last Assessment & Plan: Currently following with urology (Dr. Wagner) outpatient for routine surveillance imaging MRI kidney on 07/11/19 noting stable 2.2 cm right renal mass No plans for surgical intervention at this time Diverticulitis of large inte farooq with perforation and abscess without bleeding 06/16/2019 09/12/2021 Other chest pain 03/27/2019 09/19/2020 Overview: 03/24/19 CTA chest/ thorax: 1. Small incompletely occluded PE 2nd and 3rd branch right upper lobe PA; 2. Stable cardiac enlargement; Moderate calcification aortic root with 4.5cm fusiform dilatation mid-ascending aorta; 3. Atherosclerotic calcifications with ostial stenosis celiac trunk, SMA, bilateral renal arteries; 4. Small dependent pleural effusions, larger on right, compressive atelectasis posterior lung bases. 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 No evidence of residual filling, aneurysm recurrence or coil impaction. Patent intracranial circulation. 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 Neurology f/u [address] 2018 Abdominal pain 02/26/2014 03/21/2022 Last Assessment & Plan: She has been having abdominal discomfort for the last 3 weeks. Wakes up in the middle of the night feeling she has to eat.has a gnawing of the stomach. Routine health maintenance 01/08/2014 0 09/12/2021 Overview: Had her feet tested for diabetes, January 2014, patient was Normal, for monofilament, i did not have the lower frequency tuning fork, but it seemed that with the higher one she could not feel the vibration. On January 2014, she needed a mammogram, colonosocpy, and BMD, she want the colonoscopy in the fall. Last Assessment & Plan: She has an appointment for the colonoscopy initial eval coming up, BMD was normal, discussed with the patient. SUMMARY 12/09/2013 12/22/2018 Overview: Htn, HPL, diabetes uncontrolled with hypoglycemia, aortic bioprosthetic valve, on xeralto, with mitral and aortic valves regurgitating, needs Yearly, Echo. Skin cancer , recent excision, Next visit need to do all the preventive measures. PVD and Carotid artery details, endocervical cancer. need to be probed into, got this form her previous records, patient did not mention to us. Carotid artery disease 12/09/201309/12 Overview: Per her records Type 2 diabetes mellitus wit hout complication, without long-term current use of insulin 11/20/2013 09/12/2021 Overview: 2008; has been well controlled for a while. Metformin caused her diarrhea. Patient had her eyes examined in [place] this year and was told that she had no retinopathy. December 7.5, she has been running around that for the last couple years, didn't take careof he diabetes. Last Assessment & Plan: Last a1c 7.1 on 06/07/19 Not on any home meds at this time (intolerance to metformin in past) Hemoglobin A1C (%) Date Value 10/24/2019 7.0 Follow up with pcp for discussion on initiating therapy Paroxysmal atrial fibrillation 10/10/2013 04/11/2023 Overview: 11/19 Readmitted in with recurrent a fib and had elective cardioversion. 2013 recurrence with elective cardioversion started Xarelto First noted 1996 during AVR surgery Last Assessment & Plan: Currently in NSR Hold xarelto in setting of GI bleed Continue amiodarone Monitor on telemetry documented as of this encounter (statuses as of 10/15/2023) [facility]09-15-2022 History of Past illness Narrative* Problem Noted Date Diagnosed Date Resolved Date Acute on chronic systolic heart failure 03/19/2022 03/22/2022 Melena 02/22/2022 02/24/2022 Acute kidney injury 02/22/2022 02/25/20 22 Atrial fibrillation 01/12/2022 04/11/20 23 Encounter for support and co ordination of transition of care 02/15/2021 09/12/2021 Overview: 02/13/[address] Ferguson's office following gallbladder ultrasound demonstrating sludge. Admitted to some black stools but not bloody. Patient had Hgb of 7.2, hem positive stool. Vital signs 98.1 F-79-17-131/42-98%. Exam nonacute. Abdomen nondistended with tender epigastric and right upper quadrant. WBC 9.7-RBC 2.49L-Hgb 7.2L-HCT 20 2.8L-RDW 50 4.4H-PLT 232 with normal differential. CMP notable for sodium 132L, BUN 30 7H, creatinine 1.6H with EGFR 30 2L. GLU 139H. Calcium 8.4L troponin was negative. UA was normal. Blood type is B+. Antibody screen negative. Gallbladder ultrasound: No acute abnormalities, apparent solid nodule in right upper pole of right kidney, CT with contrast or MRII recommended. CT abdomen pelvis: Moderate size hiatal hernia with eccentric soft tissue thickening possibly related to hernia but could not exclude mass, recommended endoscopic or barium swallow to further assess. Solid mass right upper pole and right kidney possibly neoplastic. No evidence of SBO or acute pancreatitis. 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 Chest x-ray: No acute abnormalities. Unable to get beds in local hospital, transferred to [facility]. Anemia due to GI blood loss 10/24/2019 03/22/2022 Last Assessment & Plan: Assessment & PLAN: See above Renal cell carcinoma 10/24/2019 022 Last Assessment & Plan: Currently following with urology (Dr. Wagner) outpatient for routine surveillance imaging MRI kidney on 07/11/19 noting stable 2.2 cm right renal mass No plans for surgical intervention at this time Diverticulitis of large inte farooq with perforation and abscess without bleeding 06/16/2019 09/12/2021 Other chest pain 03/27/2019 09/19/2020 Overview: 03/24/19 CTA chest/ thorax: 1. Small incompletely occluded PE 2nd and 3rd branch right upper lobe PA; 2. Stable cardiac enlargement; Moderate calcification aortic root with 4.5cm fusiform dilatation mid-ascending aorta; 3. Atherosclerotic calcifications with ostial stenosis celiac trunk, SMA, bilateral renal arteries; 4. Small dependent pleural effusions, larger on right, compressive atelectasis posterior lung bases. 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 No evidence of residual filling, aneurysm recurrence or coil impaction. Patent intracranial circulation. 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 Neurology f/u [address] 2018 Abdominal pain 02/26/2014 03/21/2022 Last Assessment & Plan: She has been having abdominal discomfort for the last 3 weeks. Wakes up in the middle of the night feeling she has to eat.has a gnawing of the stomach. Routine health maintenance 01/08/2014 0 09/12/2021 Overview: Had her feet tested for diabetes, January 2014, patient was Normal, for monofilament, i did not have the lower frequency tuning fork, but it seemed that with the higher one she could not feel the vibration. On January 2014, she needed a mammogram, colonosocpy, and BMD, she want the colonoscopy in the fall. Last Assessment & Plan: She has an appointment for the colonoscopy initial eval coming up, BMD was normal, discussed with the patient. SUMMARY 12/09/2013 12/22/2018 Overview: Htn, HPL, diabetes uncontrolled with hypoglycemia, aortic bioprosthetic valve, on xeralto, with mitral and aortic valves regurgitating, needs Yearly, Echo. Skin cancer , recent excision, Next visit need to do all the preventive measures. PVD and Carotid artery details, endocervical cancer. need to be probed into, got this form her previous records, patient did not mention to us. Carotid artery disease 12/09/201309/12 Overview: Per her records Type 2 diabetes mellitus wit hout complication, without long-term current use of insulin 11/20/2013 09/12/2021 Overview: 2008; has been well controlled for a while. Metformin caused her diarrhea. Patient had her eyes examined in [place] this year and was told that she had no retinopathy. December 09.5, she has been running around that for the last couple years, didn't take careof he diabetes. Last Assessment & Plan: Last a1c 7.1 on 06/07/19 Not on any home meds at this time (intolerance to metformin in past) Hemoglobin A1C (%) Date Value 10/24/2019 7.0 Follow up with pcp for discussion on initiating therapy Paroxysmal atrial fibrillation 10/10/2013 04/11/2023 Overview: 11/19 Readmitted in with recurrent a fib and had elective cardioversion. 2013 recurrence with elective cardioversion started Xarelsd First noted 1996 during AVR surgery Last Assessment & Plan: Currently in NSR Hold xarelto in setting of GI bleed Continue amiodarone Monitor on telemetry documented as of this encounter (statuses as of 10/16/2023) [facility]09-[facility]-2022 History of Past illness Narrative* Problem Noted Date Diagnosed Date Resolved Date Acute on chronic systolic heart failure 03/19/2022 03/22/2022 Melena 02/22/2022 02/24/2022 Acute kidney injury 02/22/2022 02/25/20 22 Atrial fibrillation 01/12/2022 04/11/20 23 Encounter for support and co ordination of transition of care 02/15/2021 09/12/2021 Overview: 02/13/[address] Ferguson's office following gallbladder ultrasound demonstrating sludge. Admitted to some black stools but not bloody. Patient had Hgb of 7.2, hem positive stool. Vital signs 98.1 F-79-17-131/42-98%. Exam nonacute. Abdomen nondistended with tender epigastric and right upper quadrant. WBC 9.7-RBC 2.49L-Hgb 7.2L-HCT 20 2.8L-RDW 50 4.4H-PLT 232 with normal differential. CMP notable for sodium 132L, BUN 30 7H, creatinine 1.6H with EGFR 30 2L. GLU 139H. Calcium 8.4L troponin was negative. UA was normal. Blood type is B+. Antibody screen negative. Gallbladder ultrasound: No acute abnormalities, apparent solid nodule in right upper pole of right kidney, CT with contrast or MRII recommended. CT abdomen pelvis: Moderate size hiatal hernia with eccentric soft tissue thickening possibly related to hernia but could not exclude mass, recommended endoscopic or barium swallow to further assess. Solid mass right upper pole and right kidney possibly neoplastic. No evidence of SBO or acute pancreatitis. 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 Chest x-ray: No acute abnormalities. Unable to get beds in local hospital, transferred to [facility]. Anemia due to GI blood loss 10/24/2019 03/22/2022 Last Assessment & Plan: Assessment & PLAN: See above Renal cell carcinoma 10/24/2019 022 Last Assessment & Plan: Currently following with urology (Dr. Wagner) outpatient for routine surveillance imaging MRI kidney on 07/11/19 noting stable 2.2 cm right renal mass No plans for surgical intervention at this time Diverticulitis of large inte farooq with perforation and abscess without bleeding 06/16/2019 09/12/2021 Other chest pain 03/27/2019 09/19/2020 Overview: 03/24/19 CTA chest/ thorax: 1. Small incompletely occluded PE 2nd and 3rd branch right upper lobe PA; 2. Stable cardiac enlargement; Moderate calcification aortic root with 4.5cm fusiform dilatation mid-ascending aorta; 3. Atherosclerotic calcifications with ostial stenosis celiac trunk, SMA, bilateral renal arteries; 4. Small dependent pleural effusions, larger on right, compressive atelectasis posterior lung bases. 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 No evidence of residual filling, aneurysm recurrence or coil impaction. Patent intracranial circulation. 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 Neurology f/u [address] 2018 Abdominal pain 02/26/2014 03/21/2022 Last Assessment & Plan: She has been having abdominal discomfort for the last 3 weeks. Wakes up in the middle of the night feeling she has to eat.has a gnawing of the stomach. Routine health maintenance 01/08/2014 0 09/12/2021 Overview: Had her feet tested for diabetes, January 2014, patient was Normal, for monofilament, i did not have the lower frequency tuning fork, but it seemed that with the higher one she could not feel the vibration. On January 2014, she needed a mammogram, colonosocpy, and BMD, she want the colonoscopy in the fall. Last Assessment & Plan: She has an appointment for the colonoscopy initial eval coming up, BMD was normal, discussed with the patient. SUMMARY 12/09/2013 12/22/2018 Overview: Htn, HPL, diabetes uncontrolled with hypoglycemia, aortic bioprosthetic valve, on xeralto, with mitral and aortic valves regurgitating, needs Yearly, Echo. Skin cancer , recent excision, Next visit need to do all the preventive measures. PVD and Carotid artery details, endocervical cancer. need to be probed into, got this form her previous records, patient did not mention to us. Carotid artery disease 12/09/201309/12 Overview: Per her records Type 2 diabetes mellitus wit hout complication, without long-term current use of insulin 11/20/2013 09/12/2021 Overview: 2008; has been well controlled for a while. Metformin caused her diarrhea. Patient had her eyes examined in [place] this year and was told that she had no retinopathy. December 7.5, she has been running around that for the last couple years, didn't take careof he diabetes. Last Assessment & Plan: Last a1c 7.1 on 06/07/19 Not on any home meds at this time (intolerance to metformin in past) Hemoglobin A1C (%) Date Value 10/24/2019 7.0 Follow up with pcp for discussion on initiating therapy Paroxysmal atrial fibrillation 10/10/2013 04/11/2023 Overview: 11/19 Readmitted in with recurrent a fib and had elective cardioversion. 2013 recurrence with elective cardioversion started Xarelto First noted 1996 during AVR surgery Last Assessment & Plan: Currently in NSR Hold xarelto in setting of GI bleed Continue amiodarone Monitor on telemetry documented as of this encounter (statuses as of 10/21/2023) [facility]09-15-2022 History of Present illness Narrative* Doreen Le PA-C - 03/19/2022 10:40 AM EDT 76 year old female with extensive hx AF, CHF, HTN, S/P aortic valve replacemet, s/p Watchman procedure recently off coumadin c/o leg swelling bilaterally over last 4-5 days. Flew home from [place] last night. Did get up and walk several times during flight. . SOB x 4-5 days, can hardly go more than 10-15 steps without resting. No chest pain. Feels heart racing at times. No syncopal sx. Feels leg are warm, heavy No pain. Got back from [place] 2am this morning Able to lay supine. No Admitted [facility] 02/21-02/24/2022 for persistent melena, progressive anemia Diagnoses as diverticular bleed 2 PRBCs given 02/22/2022 CT abd/pel w/IVCON: sm hiatal hernia, marked calcification abdominal aorta, chronic severe stenosis celiac, spuerior mesenteric artery, bilateral femoral arteries. . Had colonoscopy: 2x 3-5mm polyps, blood in entire colon, diverticulosis sigmoid, descending. Path: tubular adenoma, S/p Watchman procedure 03/03/2022 echo: LV size WNL, LVSF moderately decreased , EF 38%-worse from prior RV size WNL. RVSF moderately-severely decreased.and worse from prior. RVSP 41mmHg. LA dilated with left atrial appendage no bilobed, Watchman device implanted, no thrombus, small leak.RA dilated. MV with 3+MR due to restricted leaf motion with regurgitant jet, moderate thickening, mild calcification. Peak /mean gradietn 16/8mmHg TV: 1-2+ TR. AV: Cryolife prosthetic valve #28, 2-3+ AR PV tr PA Component Latest Ref Rng & Units 02/23/2022 02/24/2022 02/24/2022 02/24/2022 02/27/2022 1:57 AM 6:25 AM 8:49 AM WBC 3.70 - 11.00 k/uL 7.68 8.18 8.41 9.41 RBC 3.90 - 5.20 m/uL 3.15 (L) 3.14 (L) 3.30 (L) 3.42 (L) Hemoglobin 11.5 - 15.5 g/dL 8.0 (L) 7.9 (L) 8.5 (L) 8.7 (L) Hematocrit 36.0 - 46.0 % 25.3 (L) 24.9 (L) 26.5 (L) 28.6 (L) MCV 80.0 - 100.0 fL 80.3 79.3 (L) 80.3 83.6 MCH 26.0 - 34.0 pg 25.4 (L) 25.2 (L) 25.8 (L) 25.4 (L) MCHC 30.5 - 36.0 g/dL 31.6 31.7 32.1 30.4 (L) RDW-CV 11.5 - 15.0 % 18.8 (H) 18.8 (H) 18.8 (H) 20.7 (H) Platelet Count 150 - 400 k/uL 201 210 207 242 MPV 9.0 - 12.7 fL 9.7 9.8 9.7 10.4 Neut% % 54.3 53.5 Abs Neut (ANC) 1.45 - 7.50 k/uL 4.17 4.50 Lymph% % 30.1 29.8 Abs Lymph 1.00 - 4.00 k/uL 2.31 2.51 Poinsett% % 12.2 12.4 Abs [place]ett <0.87 k/uL 0.94 (H) 1.04 (H) Eosin% % 2.1 2.9 Abs Eosin <0.46 k/uL 0.16 0.24 Baso% % 0.8 0.7 Abs Baso <0.11 k/uL 0.06 0.06 Immature Gran % % 0.5 0.7 IMMATURE GRANS (ABS) <0.10 k/uL 0.04 0.06 NRBC /100 WBC 0.0 0.0 Absolute nRBC <0.01 k/uL <0.01 <0.01 <0.01 <0.01 DTYPE Auto Auto Albumin 3.9 - 4.9 g/dL 4.0 Calcium 8.5 - 10.2 mg/dL 9.1 9.5 Phosphorus 2.7 - 4.8 mg/dL 4.0 Glucose 74 - 99 mg/dL 154 (H) 130 (H) BUN 7 - 21 mg/dL 12 21 Creatinine 0.58 - 0.96 mg/dL 1.26 (H) 1.31 (H) Sodium 136 - 144 mmol/L 136 137 Potassium 3.7 - 5.1 mmol/L 4.5 4.4 Chloride 97 - 105 mmol/L 102 100 CO2 22 - 30 mmol/L 23 23 Anion Gap 9 - 18 mmol/L 11 14 eGFR >=60 mL/min/1.73m 44 (L) 42 (L) HISTORIES FAMILY HISTORY Problem Relation Age of Onset other (Heart Problems) Mother other (myocardial infarction) Mother other (cardiovascular disease) Mother other (Heart Attack) Father other (cardiovascular disease) Father Diabetes Maternal Grandmother PAST MEDICAL HISTORY Diagnosis Date Abnormal colonoscopy [...] surgical removal Chronic mastoiditis of left side Diabetes (HCC) Diabetes (HCC) GERD (gastroesophageal reflux disease) H/O: GI bleed High blood pressure Hypercholesterolemia Mastoiditis of right side s/p mastoidectomy, complete opacitificationright tympanic cavity and mastoid cells on CT 06/01/16 Mitral valve regurgitation Pacemaker 10/21/[address] TRELL VERNON [id number] pulse generator, his bundle lead, right atrial lead Peripheral arterial disease (HCC) Rheumatic fever Steatosis, liver 03/26/2014 fatty liver on US. 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 Lua PACEMAKER 10/2019 PART. HYSTERECTOMY W/WO RMVL OVARIES/TUBES 1974 h/o cervical cancer ovaries remain PAST SURGICAL HISTORY OF 1996 Aortic valve repair, Dr. Apodaca PAST SURGICAL HISTORY OF 2001 [address] Beltrán, [facility] PAST SURGICAL HISTORY OF 2015 clipping and coil for brain aneurysm Social History Tobacco Use Smoking status: Former Types: Cigarettes Quit date: 02/11/1970 Years since quittin.1 Smokeless tobacco: Never Vaping Use Vaping Use: Never used Substance Use Topics Alcohol use: Yes Alcohol/week: 1.0 standard drink Types: 1 Glasses of Wine (5oz) per week Comment: red wine 2-3 times a week- occasional Drug use: No ACTIVE PROBLEM LIST History of Prosthetic Aortic Valve Replacement Aortic Prosthetic Valve Regurgitation Paroxysmal Atrial Fibrillation (Hcc) Htn (Hypertension) Hyperlipidemia With Target Ldl Less Than 70 Gerd (Gastroesophageal Reflux Disease) Chronic Anticoagulation Fatigue Sob (Shortness of Breath) H/O Rheumatic Heart Disease Basal Cell Carcinoma Left Shoulder Pain Abdominal Pain Intracranial Aneurysm Bilateral Carotid Artery Stenosis Osteopenia of Left Lower Leg Mastoiditis of Right Side Chronic Mastoiditis of Left Side Personal History of Colonic Polyps History of Ischemic Colitis Adenomatous Polyp of Descending Colon Skin Cancer Pad (Peripheral Artery Disease) (Hcc) Pedro Aneurysm of Anterior Communicating Artery Stage 3 Chronic Renal Impairment Associated With Type 2 Diabetes Mellitus (Hcc) History of Pulmonary Embolism Ascending Aorta Dilatation (Hcc) Chronic Bilateral Pleural Effusions Colovesical Fistula Renal Mass, Right Diverticulitis Large Intestine W/O Perforation Or Abscess W/O Bleeding Renal Cell Carcinoma, Right (Hcc) Iron Deficiency Anemia Hypomagnesemia Gastrointestinal Hemorrhage Associated With Acute Gastritis Esophageal Stenosis Dilated Cardiomyopathy (Hcc) Chronic Diastolic Congestive Heart Failure (Hcc) Sss (Sick Sinus Syndrome) (Hcc) Duodenal Ulcer Type 2 Diabetes Mellitus With Diabetic Peripheral Angiopathy Without Gangrene, Without Long-Term Current Use of Insulin (Hcc) Atrial Fibrillation (Hcc) Current Outpatient Medications Medication Sig Dispense Refill clopidogrel (PLAVIX) 75 mg tablet Take 1 tablet by mouth once daily. Only for 6 months. After that stay on ASA 81 mg daily, 90 tablet 1 sodium chloride 0.9 %, flush, (BD POSIFLUSH) syringe Inject 2-10 mL intravenously as directed. For Echo procedure 10 mL 0 amLODIPine (NORVASC) 5 mg tablet Take 1 tablet by mouth once daily. Hold if systolic blood pressureless than 100 aspirin 81 mg chewable tablet Take 1 tablet by mouth once daily. 30 tablet 11 omeprazole (PRILOSEC) 40 mg capsule Take 1 capsule by mouth once daily. 90 capsule 1 metoprolol succinate ER (TOPROL XL) 25 mg 24 hr tablet Take 1 tablet by mouth once daily. 90 tablet3 furosemide (LASIX) 20 mg tablet Take 1 tablet by mouth once daily. 90 tablet 3 simvastatin (ZOCOR) 20 mg tablet Take 1 tablet by mouth daily at bedtime. 90 tablet 3 acetaminophen (TYLENOL) 500 mg tablet Take 1-2 tablets by mouth every 6 hours as needed. Cholecalciferol-Soy Isoflavone 2,000-64 unit-mg tab Take 1 capsule by mouth once daily. magnesium oxide (MAG-OX) 400 mg (241.3 mg magnesium) tablet Take 1 tablet by mouth twice daily for 10 days. (Patient taking differently: Take 400 mg by mouth once daily.) 20 tablet 0 blood sugar diagnostic (BLOOD GLUCOSE TEST) test strip Test blood sugar(s) 2 times daily. Dx: Type 2 DM - Controlled E11.9 Insulin: No 50 Strip 11 UBIDECARENONE (COQ-10 ORAL) Take 1 capsule by mouth once daily. No current facility-administered medications for this visit. Facility-Administered Medications Ordered in Other Visits Medication Dose Route Frequency Provider Last Rate Last Admin lidocaine viscous 2 % (XYLOCAINE) X (OR/PROCEDURE) PRSangeeta Gustafson MD 15 mL at 03/03/22 1149 benzocaine 20% (TOPEX) X (OR/PROCEDURE) PRN Randy Gustafson MD 2 [place] at 03/03/22 1149 fentaNYL 50 mcg/mL injection (SUBLIMAZE) X (OR/PROCEDURE) PRSnageeta Gustafson MD 25 mcg at 03/03/22 1211 midazolam (PF) injection (VERSED) X (OR/PROCEDURE) PRN Randy Gustafson MD 1 mg at 03/03/22 1211 BP CONTROLLED (<130/80) Never done DIABETIC FOOT EXAM due on 01/08/2015 COVID-19 VACCINE(4 - Booster for Pfizer series) due on 07/13/2021 DILATED RETINAL EXAM due on 02/19/2022 INFLUENZA(1) due on 03/05/2022 EXAM: BP 148/66 Pulse 112 Resp 24 Wt 69.9 kg (154 lb) SpO2 97% BMI 27.28 kg/m Pleasant frail adult woman in no acute distress. Alert and oriented all spheres. Normal affect and cognition. Speech normal. No deficits to learning or comprehension. Skin warm, dry, pink to lips and nailbeds. Normal turgor. Respirations regular and unlabored. Speaking in full sentences. Appears tired but about at baseline except SOB with minimal exertion in office. HEENT: NCAT. No scleral icterus or conjunctival injection. TM's clear. Nose and oropharynx free from injection or lesion. Oral membranes moist and pink. No cervical lymph nodes. Thyroid non-tender, no masses, or enlargement. Carotids pulses 2+/4+ without bruits. No JVD with HOB at 30 degrees. Chest is normal shape. Lungs are clear to all rosas with good air exchange through out. Heart irregular with chronic murmur unchanged, no gallop. No lifts, heaves, or rubs. HR 134 on my count. Extrem: no clubbing or cyanosis. Edema: 2/4+ mid calf to feet bilaterally. Extremities are warm andpink with prompt capillary refill. EKG: AF vr 94 AF, no significant change 03/13/2022 except rate Some of this note may have been copied and pasted for the purpose of history context and comparison.] ASSESSMENT/PLAN: 1. Acute combined systolic and diastolic congestive heart failure (HCC) - ICD9: 428.41, 428.0, ICD10: I50.41 (primary diagnosis) Concerned r/t to recent reduced systolic and diastolic function, chronic anemia, 14lb weight gain, fatigue, SOB suggesting acute CHF, less likely DVT/ PE. Need to rule out ischemic heart diease. Discussed need to start lasix but low volume due to anemia makes risky. Would benefit from transfusion due to chronic anemia and cardiac stress. Needs to rule out ischemic heart disease. - ECG COMPLETE 2. Aortic prosthetic valve regurgitation, subsequent encounter - ICD9: V58.89, ICD10: T82.897D - ECG COMPLETE 3. H/O rheumatic heart disease - ICD9: V12.59, ICD10: Z86.79 4. Atrial fibrillation, unspecified type (HCC) - ICD9: 427.31, ICD10: I48.91 Cariable rate 5. Presence of Watchman left atrial appendage closure device - ICD9: V45.09, ICD10: Z95.818 Recently stopped coumadin: continue clopidogrel and ASA 6. Anemia, blood loss - ICD9: 280.0, ICD10: D50.0 Chronic for months, multiple transfusions, stbale from last transfusion but definitely has been cardiac stress. 7. Primary hypertension - ICD9: 401.9, ICD10: I10 - good control - Continue current medication(s) - Recommended regular aerobic exercise. - Recommend home blood pressure monitoring, to bring results in on next visit - Goal of BP <130/80 Doreen Le PA-C documented in this encounterL[facility]09-[facility] History of Present illness Narrative* Sheridan Cervantes RN - 03/05/2022 12:39 PM EDT TRANSITION CARE MANAGEMENT (TCM) FOLLOW-UP NOTE Provider Action/FYI Chart reviewed, TCM follow up call deferred due to 03/03 office visit with JASPREET Torres. Summary: Pt discharged from [facility] on 02/24. 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 plan for next outreach: Will follow up Signature Sheridan Cervantes RN March 05, 2022 documented in this encounterLake[facility]08-31-2022 Miscellaneous Notes* Addendum Note - Radha Torres APRN.CNP - 03/04/2022 10:54 AM EDTAddended by: RADHA TORRES on: 03/04/2022 10:54 AM Modules accepted: Orders, SmartSet * Addendum Note - Radha Torres APRN.CNP - 03/04/2022 9:46 AM EDTAddended by: RADHA TORRES on: 03/04/2022 09:46 AM Modules accepted: Orders documented in this encounterLakehealth [facility]08-30-2022 History of Present illness Narrative* Radha Torres APRN.CNP - 03/03/2022 12:00 PM EDT Images from the original note were not included. [facility] [place] [facility]ln[facility] Department of Cardiovascular Medicine SECTION OF CARDIAC PACING and ELECTROPHYSIOLOGY OUTPATIENT VISIT DATE March 03, 2022 OUTPATIENT VISIT TYPE ESTABLISHED PRIMARY CARE PHYSICIAN: Doreen Le [address] [place] [address] CHIEF COMPLAINT: Post Watchman follow up HISTORY OF PRESENT ILLNESS: Ms. Sanches is a 76 year old female who presents today for follow-up visit for atrial fibrillationmanagement. She is s/p Watchman implant on 01/12/2022. She was last seen by Dr. Swan on 07/15/2021, referred by Dr. Washington(her primary EP). Past medical history of aortic disease s/p remote aortic valve replacement (homograft) and thoracicaortic replacement (1998), HTN, CHF with preserved LVEF (58% per echo 10/2020), CKD, dyslipidemia, carotid stenosis, PAD, brain aneurysm s/p coiling (2015), SSS s/p PPM 10/21/20, GI bleed, and symptomatic, persistent, drug refractory atrial fibrillation s/p PVI 2018. She was treated with amiodarone until January 2021, but this was discontinued secondary to severe DLCO reduction. She developed stomach pain in February 2021, with concern for GI bleeding. She has had significant anemia requiring transfusions in June. She has undergone an extensive GI evaluation, and the source appears to be an occult GI bleed. However, her upper and lower endoscopy were non diagnostic. [id number] score: 7 (congestive heart failure, hypertension, age >/=75, diabetes, vascular disease, female) HASBLED score: 4 (HTN, CKD, bleeding, elderly). Patient underwent Watchman implant on 01/12/[address] Swan. She was maintained on Xarelto with the plan for ABDIEL at 45 days but unfortunately she developed GI bleed and was hospitalized on 02/21/22. She received 2 units of blood and a dose of IV iron. Her GI Dr. Graf spoke to Dr. Mcgowannand Xarelto was discontinued. Patient is now on ASA. Reports doing well overall but noticed palpitations and fatigue. Denies having chest pain, shortness of breath, orthopnea, cough, edema, palpitations, PND, lightheadedness or syncope. PAST CARDIAC HISTORY: AF PAST MEDICAL HISTORY Diagnosis Date Abnormal colonoscopy [...] surgical removal Chronic mastoiditis of left side Diabetes (HCC) Diabetes (HCC) GERD (gastroesophageal reflux disease) H/O: GI bleed High blood pressure Hypercholesterolemia Mastoiditis of right side s/p mastoidectomy, complete opacitificationright tympanic cavity and mastoid cells on CT 06/01/16 Mitral valve regurgitation Pacemaker 10/21/[address] TRELL VERNON [id number] pulse generator, his bundle lead, right atrial lead Peripheral arterial disease (HCC) Rheumatic fever Steatosis, liver 03/26/2014 fatty liver on US. 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 Lua PACEMAKER 10/2019 PART. HYSTERECTOMY W/WO RMVL OVARIES/TUBES 1974 h/o cervical cancer ovaries remain PAST SURGICAL HISTORY OF 1996 Aortic valve repair, Dr. Apodaca PAST SURGICAL HISTORY OF 2001 [address] Beltrán, [facility] PAST SURGICAL HISTORY OF 2015 clipping and coil for brain aneurysm SOCIAL HISTORY Social History Tobacco Use Smoking status: Former Types: Cigarettes Quit date: 02/11/1970 Years since quittin.0 Smokeless tobacco: Never Vaping Use Vaping Use: Never used Substance Use Topics Alcohol use: Yes Alcohol/week: 1.0 standard drink Types: 1 Glasses of Wine (5oz) per [...] and 10 mg dexamethasone with good response. MEDICATIONS: amLODIPine (NORVASC) 5 mg tablet^Take 1 tablet by mouth once daily. Hold if systolic blood pressureless than 100^Disp: ^Rfl: aspirin 81 mg chewable tablet^Take 1 tablet by mouth once daily.^Disp: 30 tablet^Rfl: 11 omeprazole (PRILOSEC) 40 mg capsule^Take 1 capsule by mouth once daily.^Disp: 90 capsule^Rfl: 1 metoprolol succinate ER (TOPROL XL) 25 mg 24 hr tablet^Take 1 tablet by mouth once daily.^Disp: 90 tablet^Rfl: 3 furosemide (LASIX) 20 mg tablet^Take 1 tablet by mouth once daily.^Disp: 90 tablet^Rfl: 3 simvastatin (ZOCOR) 20 mg tablet^Take 1 tablet by mouth daily at bedtime.^Disp: 90 tablet^Rfl: 3 mirtazapine (REMERON) 15 mg tablet^Take 1 tablet by mouth daily at bedtime.^Disp: 30 tablet^Rfl: 2 (Patient taking differently: Take 15 mg by mouth at bedtime as needed.) acetaminophen (TYLENOL) 500 mg tablet^Take 1-2 tablets by mouth every 6 hours as needed.^Disp: ^Rfl: Cholecalciferol-Soy Isoflavone 2,000-64 unit-mg tab^Take 1 capsule by mouth once daily.^Disp: ^Rfl: magnesium oxide (MAG-OX) 400 mg (241.3 mg magnesium) tablet^Take 1 tablet by mouth twice daily for 10 days.^Disp: 20 tablet^Rfl: 0 (Patient taking differently: Take 400 mg by mouth once daily.) blood sugar diagnostic (BLOOD GLUCOSE TEST) test strip^Test blood sugar(s) 2 times daily. Dx: Type 2 DM - Controlled E11.9 Insulin: No^Disp: 50 Strip^Rfl: 11 UBIDECARENONE (COQ-10 ORAL)^Take 1 capsule by mouth once daily.^Disp: ^Rfl: REVIEW OF SYSTEMS: GENERAL: Negative for: Weight loss or gain, Fever or Chills, Weakness and Sleep difficulties. HEENT: Negative for: Headache, Impaired Vision, Glasses, Hearing Impairment, Ringing in Ears, Nosebleeds, Poor Dental Care, Bleeding Gums and Dentures. NECK: Negative for: Swelling, Pain, Stiffness RESPIRATORY: [...] loss SKIN: Negative for: Rash, Itching HEMATOLOGICAL/LYMPHATIC: Negative for: Easy bruising, Easy bleeding ENDOCRINE: Negative for: Heat or Cold Intolerance, Excessive Sweating, Frequent Urination, FrequentThirst PHYSICAL EXAMINATION: BP 141/72 Pulse 98 Ht 160 cm (5' 3") Wt 63.5 kg (140 lb) BMI 24.80 kg/m General: Well appearing, in no acute distress, speaking in complete sentences. Neck: No jugular venous distention, no carotid bruits, carotids have a normal upstroke, no palpablethyromegaly. Lungs: Clear to auscultation bilaterally, no wheezing or rhonchi. Heart: IRRR, left PPM site well healed, +1/6 systolic murmur Abdomen: Soft, nontender, bowel sounds normal, no palpable organomegaly, no bruits. Extremities: No peripheral edema . Grade 2/4 distal pulses bilaterally. Neuro: Oriented to person, place and time, alert, cooperative, gait coordinated. CARDIOVASCULAR MEDICINE TESTING: DUAL LEAD PACEMAKER EVALUATION PRESENTS FOR: Office visit with Radha Torres CNP PRESENTING EGM: AF/VS UNDERLYING RHYTHM: AF with CVR BATTERY STATUS: Estimated time remaining to YUE is 12.6 yrs. COUNTERS SINCE: 01/12/22 ATRIAL ARRHYTHMIAS: AT/AF burden 99.3%. Anticoagulants listed: No AC at this time (was on Xarelto) r/t GIB. VENTRICULAR ARRHYTHMIAS: There have been no ventricular detections since the last evaluation. LEAD MEASUREMENTS: RV Capture and sensing were appropriate on 01/09/22, not tested today. The pacing outputs maintain safety margin. Review of the lead impedance trends are normal. IMPLANT SITE/ SYMPTOMS: The incision and pocket are pain-free (0/10), well healed and without signsof erosion or infection. OTHER DIAGNOSTICS: RV pacing 14.6% PROGRAMMING CHANGES MADE TODAY: None FOLLOW UP: Remotes every 3 months and yearly in-clinic device checks. Ying Hart RN [place] to Dr. Fay in Dr. Gomez's absence Last ABDIEL Result Conclusion INTRAPROCEDURAL ECHO Collected: 01/12/2022 10:33 AM (Final result) Impression: CONCLUSIONS: - Exam indication: Watchman - The left ventricle is normal in size. Left ventricular systolic function is normal. EF = 55 5% (visual est.) - The right ventricle is normal in size. Right ventricular systolic function is moderately decreased. - The visualized aorta is dilated with a maximal dimension of 4.4 cm. - There is moderately severe (3+) holosystolic mitral valve regurgitation due to restricted leaflet motion. Regurgitant orifice area (PISA) is 0.31 cm . Mild anterior leaflet override. Thickened leaflets. Peak/mean gradients (averaged) 15/8 mmHG at HR 88 bpm. - Cryolife prosthetic aortic valve (size #28). There is moderate (2+ - 3+) aortic valve regurgitation likely related to prosthetic valve dysfunction. Mild resistance noted at GE junction, so transgastric views not obtained to better assess the AI. AI appears at least moderate. Would suggest a follow-up TTE to assess as well. - The following is distribution sales representative of measurements of LAXMI dimensions from different angles (width x depth): - At 0 degree: 2.0 x 2.3cm - At 45 degree: 2.1 x 2.1cm - At 90 degree: 1.8 x 1.9cm - At 135 degree: 2.2x 2.2cm MPR/3D imaging of the left atrial appendage was performed. Ostium measures 2.2 x 1.6cm. Area 2.7cm2. - Successful deployment of WATCHMAN FLX #27 device with no evidence of residual flow or para-device leak seen by color Doppler. - There was no pericardial effusion pre-procedure. No changes noted post. - There is a small residual IAS defect post puncture, with predominant left to right shunt (very brief R-L flow at end diastole by color, extends to systole by CW Doppler) detected by color Doppler. Vmax 2.1 m/sec left to right (suggesting a max LA pressure of 17 mmHg+ RA pressure). - Exam was compared with the prior echocardiographic exam performed on 10/08/20. Interval progression of mitral and aortic regurgitation. Now s/p successful placement of Watchman FLX #27 placement. * * * Final * * * Last EKG Result Conclusion ECG COMPLETE Collected: 03/03/2022 9:59 AM (Preliminary result) Impression: ATRIAL FIBRILLATION WITH RAPID VENTRICULAR RESPONSE MINIMAL VOLTAGE CRITERIA FOR LVH, MAY BE NORMAL VARIANT ( [place] product ) ABNORMAL ECG ABDIEL: CONCLUSIONS: - Exam indication: 45d Watchman follow-up - The left ventricle is normal in size. Left ventricular systolic function is moderately decreased. EF = 38 5% (visual est.) - The right ventricle is normal in size. Right ventricular systolic function is moderately to severely decreased. - The left atrial cavity is dilated. Small Watchman violet-device leak measuring 2mm (clip 14). - The [...] seen. More LV and RV dysfunction reported. IMPRESSION: Ms. Sanches is a 76 year old female who presents today for follow-up visit for atrial fibrillationmanagement. She is s/p Watchman implant on 01/12/2022. She was last seen by Dr. Swan on 07/15/2021, referred by Dr. Wahsington(her primary EP). Past medical history of aortic disease s/p remote aortic valve replacement (homograft) and thoracicaortic replacement (1998), HTN, CHF with preserved LVEF (58% per echo 10/2020), CKD, dyslipidemia, carotid stenosis, PAD, brain aneurysm s/p coiling (2015), SSS s/p PPM 10/21/20, GI bleed, and symptomatic, persistent, drug refractory atrial fibrillation s/p PVI 2018. She was treated with amiodarone until January 2021, but this was discontinued secondary to severe DLCO reduction. History of GI bleed. She developed stomach pain in February 2021, with concern for GI bleeding. She has had significant anemia requiring transfusions in June. She has undergone an extensive GI evaluation, and the source appears to be an occult GI bleed. However, her upper and lower endoscopy were non diagnostic. [id number] score: 7 (congestive heart failure, hypertension, age >/=75, diabetes, vascular disease, female) HASBLED score: 4 (HTN, CKD, bleeding, elderly). Patient underwent Watchman implant on 01/12/[address] Swan. She was maintained on Xarelto with the plan for ABDIEL at 45 days but unfortunately she developed GI bleed and was hospitalized on 02/21/22. She received 2 units of blood and a dose of IV iron. Her GI Dr. Graf spoke to Dr. Barajas Xarelto was discontinued. Patient is now on ASA. ABDIEL was done today, small 2 mm leak noted. O per Dr. Swan, Plavix and ASA for 6 months and then ASA only. PLAN AND RECOMMENDATIONS: Plavix 75 mg daily for 6 mo and ASA 81 mg daily. After Plavix is done, stay on ASA. Patient was called and the plan was discussed. Rx for Plavix sent in to [facility]. Follow up advised with Dr. Washington to be scheduled. ABDIEL at 1 year from the Watchman procedure, around 01/12/2023. CONTACT INFORMATION: Radha Torres APRN.JASPREET documented in this encounterLake[facility]08-30-2022 Nurse Note* Alexandre Avalos RN - 03/03/2022 10:57 AM EDT AMBULATORY PATIENT EDUCATION TOPIC: ABDIEL READINESS TO LEARN COGNITIVE ABILITY: Alert and oriented MOTIVATION TO LEARN: Eager Interested FAMILY SUPPORT: High - Very involved in pt care INSTRUCTION PROVIDED TO: Patient PATIENT LEARNS BEST BY: Individual Instruction Verbal Instruction FACTORS AFFECTING LEARNING: None PHYSICAL LIMITATIONS AFFECTING LEARNING: Sensory Deficit Hearing: Hard of Hearing LEARNING RESPONSE DIAGNOSIS: 45 day watchman f/u METHOD OF INSTRUCTION: Individual instruction Verbal instruction PATIENT / FAMILY RESPONSE: Verbalizes understanding of: POST-PROCEDURE INSTRUCTIONS-Correct actionsto take to reduce post procedure complications PRE-PROCEDURE INSTRUCTIONS-Correct action to take to follow pre-procedure instructions FOLLOW-UP PLAN: Complete - No need for follow-up SUPPLEMENTAL MATERIAL: Post ABDIEL instructions given Post sedation instructions given REFERRAL (RECOMMENDATION): None Electronically Signed By Alexandre Avalos RN In Department: CARDIOLOGY documented in this encounterLakehealth [facility]08-29-2022 Miscellaneous Notes* Telephone Encounter - Saima England RN - 03/02/2022 2:10 PM EDT ECHO LAB TELEPHONE INSTRUCTIONS: Learning Response: Instructions provided to: Patient Procedure: ABDIEL Pre procedure education topics: Arrival time, NPO status, Medications, and Accompanied by a responsible adult Instructions/Restrictions Patient/Family Response Evaluation: Verbalizes understanding Follow Up Plan and Medication: As directed by physician Instruction/Supplemental Material Given: Appointment Information and Procedure/Test Specific Information: Transesphageal Echocardiogram-ABDIEL Instructed By Saima England RN. In Department of CARDIOLOGY. documented in this encounterLakehealth [facility]08-24-2022 History of Present illness Narrative* Harika Tomas RN - 02/25/2022 2:27 PM EDT TCM Home Visit Referral Source of Stratification: [facility] Admission Status: Discharged Readmission Risk Score: 18 NOHEMY Score: 13 Program referral criteria met: Does not meet referral criteria Patient does not qualify for High Risk TCM Home Visit program due to: Does not meet referral criteria Patient does not quality for High Risk TCM Home Visit Program due to: Does not meet referral criteria Preferred contact number: Is patient staying somewhere other than the listed home address: No Dialysis Patient: No TRANSITIONAL CARE MANAGEMENT (TCM) COMMUNITY MONITORING PROGRAM Provider Action/FYI: SUMMARY: Pt discharged from [facility] on 02/24. Admitted for: PRINCIPAL DIAGNOSIS: GI bleeding diverticular bleed/acute blood loss anemia Contact made with patient: No - 2nd unsuccessful attempt - end outreach and close encounter Outreach ended Harika Tomas RN BSN [facility] [phone] * Harika Tomas RN - 02/25/2022 10:14 AM EDT TCM Home Visit Referral Source of Stratification: [facility] Admission Status: Discharged Readmission Risk Score: 18 NOHEMY Score: 13 Program referral criteria met: Does not meet referral criteria Patient does not qualify for High Risk TCM Home Visit program due to: Does not meet referral criteria Patient does not quality for High Risk TCM Home Visit Program due to: Does not meet referral criteria Preferred contact number: Is patient staying somewhere other than the listed home address: No Dialysis Patient: No TRANSITIONAL CARE MANAGEMENT (TCM) COMMUNITY MONITORING PROGRAM Provider Action/FYI: Left message for patient that I will contact her later today or tomorrow SUMMARY: Pt discharged from [facility] on 02/24. Admitted for: PRINCIPAL DIAGNOSIS: GI bleeding diverticular bleed/acute blood loss anemia Contact made with patient: No - next outreach attempt will be on next day Outreach ended Harika Tomas RN BSN [facility] [phone] documented in this encounterLakehealth [facility] Center08-21-2022 History of Past illness Narrative* Problem Noted Date Resolved Date Melena 02/22/2022 02/24/2022 Acute kidney injury 02/22/2022 02/24/2022 Encounter for support and coordination of transi tion of care 02/15/2021 09/12/2021 Overview: 02/13/[address] Ferguson's office following gallbladder ultrasound demonstrating sludge. Admitted to some black stools but not bloody. Patient had Hgb of 7.2, hem positive stool. Vital signs 98.1 F-79-17-131/42-98%. Exam nonacute. Abdomen nondistended with tender epigastric and right upper quadrant. WBC 9.7-RBC 2.49L-Hgb 7.2L-HCT 20 2.8L-RDW 50 4.4H-PLT 232 with normal differential. CMP notable for sodium 132L, BUN 30 7H, creatinine 1.6H with EGFR 30 2L. GLU 139H. Calcium 8.4L troponin was negative. UA was normal. Blood type is B+. Antibody screen negative. Gallbladder ultrasound: No acute abnormalities, apparent solid nodule in right upper pole of right kidney, CT with contrast or MRII recommended. CT abdomen pelvis: Moderate size hiatal hernia with eccentric soft tissue thickening possibly related to hernia but could not exclude mass, recommended endoscopic or barium swallow to further assess. Solid mass right upper pole and right kidney possibly neoplastic. No evidence of SBO or acute pancreatitis. 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 Chest x-ray: No acute abnormalities. Unable to get beds in local hospital, transferred to [facility]. Anemia 10/24/2019 09/12/2021 Last Assessment & Plan: Assessment & PLAN: See above Renal cell carcinoma 10/24/2019 09/12/2021 Last Assessment & Plan: Currently following with urology (Dr. Wagner) outpatient for routine surveillance imaging MRI kidney on 07/11/19 noting stable 2.2 cm right renal mass No plans for surgical intervention at this time Diverticulitis of large inte farooq with perforation and abscess without bleeding 06/16/2019 09/12/2021 Other chest pain 03/27/2019 09/19/2020 Overview: 03/24/19 CTA chest/ thorax: 1. Small incompletely occluded PE 2nd and 3rd branch right upper lobe PA; 2. Stable cardiac enlargement; Moderate calcification aortic root with 4.5cm fusiform dilatation mid-ascending aorta; 3. Atherosclerotic calcifications with ostial stenosis celiac trunk, SMA, bilateral renal arteries; 4. Small dependent pleural effusions, larger on right, compressive atelectasis posterior lung bases. 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 On January 2014, she needed a mammogram, colonosocpy, and BMD, she want the colonoscopy in the fall. Last Assessment & Plan: She has an appointment for the colonoscopy initial eval coming up, BMD was normal, discussed with the patient. SUMMARY 12/09/2013 12/22/2018 Overview: Htn, HPL, diabetes uncontrolled with hypoglycemia, aortic bioprosthetic valve, on xeralto, with mitral and aortic valves regurgitating, needs Yearly, Echo. Skin cancer , recent excision, Next visit need to do all the preventive measures. PVD and Carotid artery details, endocervical cancer. need to be probed into, got this form her previous records, patient did not mention to us. Carotid artery disease 12/09/2013 2 Overview: Per her records Type 2 diabetes mellitus wit hout complication, without long-term current use of insulin 11/20/2013 09/12/2021 Overview: 2008; has been well controlled for a while. Metformin caused her diarrhea. Patient had her eyes examined in [place] this year and was told that she had no retinopathy. December 09., she has been running around that for the last couple years, didn't take careof he diabetes. Last Assessment & Plan: Last a1c 7.1 on 06/07/19 Not on any home meds at this time (intolerance to metformin in past) Hemoglobin A1C (%) Date Value 10/24/2019 7.0 Follow up with pcp for discussion on initiating therapy documented as of this encounter (statuses as of 02/25/2022) [facility]08-21-2022 History of Past illness Narrative* Problem Noted Date Resolved Date Melena 02/22/2022 02/24/2022 Acute kidney injury 02/22/2022 02/24/2022 Encounter for support and coordination of transi tion of care 02/15/2021 09/12/2021 Overview: 02/13/[address] Ferguson's office following gallbladder ultrasound demonstrating sludge. Admitted to some black stools but not bloody. Patient had Hgb of 7.2, hem positive stool. Vital signs 98.1 F-79-17-131/42-98%. Exam nonacute. Abdomen nondistended with tender epigastric and right upper quadrant. WBC 9.7-RBC 2.49L-Hgb 7.2L-HCT 20 2.8L-RDW 50 4.4H-PLT 232 with normal differential. CMP notable for sodium 132L, BUN 30 7H, creatinine 1.6H with EGFR 30 2L. GLU 139H. Calcium 8.4L troponin was negative. UA was normal. Blood type is B+. Antibody screen negative. Gallbladder ultrasound: No acute abnormalities, apparent solid nodule in right upper pole of right kidney, CT with contrast or MRII recommended. CT abdomen pelvis: Moderate size hiatal hernia with eccentric soft tissue thickening possibly related to hernia but could not exclude mass, recommended endoscopic or barium swallow to further assess. Solid mass right upper pole and right kidney possibly neoplastic. No evidence of SBO or acute pancreatitis. 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 Chest x-ray: No acute abnormalities. Unable to get beds in local hospital, transferred to [facility]. Anemia 10/24/2019 09/12/2021 Last Assessment & Plan: Assessment & PLAN: See above Renal cell carcinoma 10/24/2019 09/12/2021 Last Assessment & Plan: Currently following with urology (Dr. Wagner) outpatient for routine surveillance imaging MRI kidney on 07/11/19 noting stable 2.2 cm right renal mass No plans for surgical intervention at this time Diverticulitis of large inte farooq with perforation and abscess without bleeding 06/16/2019 09/12/2021 Other chest pain 03/27/2019 09/19/2020 Overview: 03/24/19 CTA chest/ thorax: 1. Small incompletely occluded PE 2nd and 3rd branch right upper lobe PA; 2. Stable cardiac enlargement; Moderate calcification aortic root with 4.5cm fusiform dilatation mid-ascending aorta; 3. Atherosclerotic calcifications with ostial stenosis celiac trunk, SMA, bilateral renal arteries; 4. Small dependent pleural effusions, larger on right, compressive atelectasis posterior lung bases. 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 On January 2014, she needed a mammogram, colonosocpy, and BMD, she want the colonoscopy in the fall. Last Assessment & Plan: She has an appointment for the colonoscopy initial eval coming up, BMD was normal, discussed with the patient. SUMMARY 12/09/2013 12/22/2018 Overview: Htn, HPL, diabetes uncontrolled with hypoglycemia, aortic bioprosthetic valve, on xeralto, with mitral and aortic valves regurgitating, needs Yearly, Echo. Skin cancer , recent excision, Next visit need to do all the preventive measures. PVD and Carotid artery details, endocervical cancer. need to be probed into, got this form her previous records, patient did not mention to us. Carotid artery disease 12/09/2013 Overview: Per her records Type 2 diabetes mellitus wit hout complication, without long-term current use of insulin 11/20/2013 09/12/2021 Overview: 2008; has been well controlled for a while. Metformin caused her diarrhea. Patient had her eyes examined in [place] this year and was told that she had no retinopathy. December 7.5, she has been running around that for the last couple years, didn't take careof he diabetes. Last Assessment & Plan: Last a1c 7.1 on 06/07/19 Not on any home meds at this time (intolerance to metformin in past) Hemoglobin A1C (%) Date Value 10/24/2019 7.0 Follow up with pcp for discussion on initiating therapy documented as of this encounter (statuses as of 03/02/2022) [facility]08-21-2022 History of Past illness Narrative* Problem Noted Date Resolved Date Melena 02/22/2022 02/24/2022 Acute kidney injury 02/22/2022 02/24/2022 Encounter for support and coordination of transi tion of care 02/15/2021 09/12/2021 Overview: 02/13/[address] Ferguson's office following gallbladder ultrasound demonstrating sludge. Admitted to some black stools but not bloody. Patient had Hgb of 7.2, hem positive stool. Vital signs 98.1 F-79-17-131/42-98%. Exam nonacute. Abdomen nondistended with tender epigastric and right upper quadrant. WBC 9.7-RBC 2.49L-Hgb 7.2L-HCT 20 2.8L-RDW 50 4.4H-PLT 232 with normal differential. CMP notable for sodium 132L, BUN 30 7H, creatinine 1.6H with EGFR 30 2L. GLU 139H. Calcium 8.4L troponin was negative. UA was normal. Blood type is B+. Antibody screen negative. Gallbladder ultrasound: No acute abnormalities, apparent solid nodule in right upper pole of right kidney, CT with contrast or MRII recommended. CT abdomen pelvis: Moderate size hiatal hernia with eccentric soft tissue thickening possibly related to hernia but could not exclude mass, recommended endoscopic or barium swallow to further assess. Solid mass right upper pole and right kidney possibly neoplastic. No evidence of SBO or acute pancreatitis. 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 Chest x-ray: No acute abnormalities. Unable to get beds in local hospital, transferred to [facility]. Anemia 10/24/2019 09/12/2021 Last Assessment & Plan: Assessment & PLAN: See above Renal cell carcinoma 10/24/2019 09/12/2021 Last Assessment & Plan: Currently following with urology (Dr. Wagner) outpatient for routine surveillance imaging MRI kidney on 07/11/19 noting stable 2.2 cm right renal mass No plans for surgical intervention at this time Diverticulitis of large inte farooq with perforation and abscess without bleeding 06/16/2019 09/12/2021 Other chest pain 03/27/2019 09/19/2020 Overview: 03/24/19 CTA chest/ thorax: 1. Small incompletely occluded PE 2nd and 3rd branch right upper lobe PA; 2. Stable cardiac enlargement; Moderate calcification aortic root with 4.5cm fusiform dilatation mid-ascending aorta; 3. Atherosclerotic calcifications with ostial stenosis celiac trunk, SMA, bilateral renal arteries; 4. Small dependent pleural effusions, larger on right, compressive atelectasis posterior lung bases. 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 On January 2014, she needed a mammogram, colonosocpy, and BMD, she want the colonoscopy in the fall. Last Assessment & Plan: She has an appointment for the colonoscopy initial eval coming up, BMD was normal, discussed with the patient. SUMMARY 12/09/2013 12/22/2018 Overview: Htn, HPL, diabetes uncontrolled with hypoglycemia, aortic bioprosthetic valve, on xeralto, with mitral and aortic valves regurgitating, needs Yearly, Echo. Skin cancer , recent excision, Next visit need to do all the preventive measures. PVD and Carotid artery details, endocervical cancer. need to be probed into, got this form her previous records, patient did not mention to us. Carotid artery disease 12/09/2013 2 Overview: Per her records Type 2 diabetes mellitus wit hout complication, without long-term current use of insulin 11/20/2013 09/12/2021 Overview: 2008; has been well controlled for a while. Metformin caused her diarrhea. Patient had her eyes examined in [place] this year and was told that she had no retinopathy. December 7.5, she has been running around that for the last couple years, didn't take careof he diabetes. Last Assessment & Plan: Last a1c 7.1 on 06/07/19 Not on any home meds at this time (intolerance to metformin in past) Hemoglobin A1C (%) Date Value 10/24/2019 7.0 Follow up with pcp for discussion on initiating therapy documented as of this encounter (statuses as of 03/03/2022) [facility]08-21-2022 History of Past illness Narrative* Problem Noted Date Resolved Date Melena 02/22/2022 02/24/2022 Acute kidney injury 02/22/2022 02/24/2022 Encounter for support and coordination of transi tion of care 02/15/2021 09/12/2021 Overview: 02/13/[address] Ferguson's office following gallbladder ultrasound demonstrating sludge. Admitted to some black stools but not bloody. Patient had Hgb of 7.2, hem positive stool. Vital signs 98.1 F-79-17-131/42-98%. Exam nonacute. Abdomen nondistended with tender epigastric and right upper quadrant. WBC 9.7-RBC 2.49L-Hgb 7.2L-HCT 20 2.8L-RDW 50 4.4H-PLT 232 with normal differential. CMP notable for sodium 132L, BUN 30 7H, creatinine 1.6H with EGFR 30 2L. GLU 139H. Calcium 8.4L troponin was negative. UA was normal. Blood type is B+. Antibody screen negative. Gallbladder ultrasound: No acute abnormalities, apparent solid nodule in right upper pole of right kidney, CT with contrast or MRII recommended. CT abdomen pelvis: Moderate size hiatal hernia with eccentric soft tissue thickening possibly related to hernia but could not exclude mass, recommended endoscopic or barium swallow to further assess. Solid mass right upper pole and right kidney possibly neoplastic. No evidence of SBO or acute pancreatitis. 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 Chest x-ray: No acute abnormalities. Unable to get beds in local hospital, transferred to [facility]. Anemia 10/24/2019 09/12/2021 Last Assessment & Plan: Assessment & PLAN: See above Renal cell carcinoma 10/24/2019 09/12/2021 Last Assessment & Plan: Currently following with urology (Dr. Wagner) outpatient for routine surveillance imaging MRI kidney on 07/11/19 noting stable 2.2 cm right renal mass No plans for surgical intervention at this time Diverticulitis of large inte farooq with perforation and abscess without bleeding 06/16/2019 09/12/2021 Other chest pain 03/27/2019 09/19/2020 Overview: 03/24/19 CTA chest/ thorax: 1. Small incompletely occluded PE 2nd and 3rd branch right upper lobe PA; 2. Stable cardiac enlargement; Moderate calcification aortic root with 4.5cm fusiform dilatation mid-ascending aorta; 3. Atherosclerotic calcifications with ostial stenosis celiac trunk, SMA, bilateral renal arteries; 4. Small dependent pleural effusions, larger on right, compressive atelectasis posterior lung bases. 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 On January 2014, she needed a mammogram, colonosocpy, and BMD, she want the colonoscopy in the fall. Last Assessment & Plan: She has an appointment for the colonoscopy initial eval coming up, BMD was normal, discussed with the patient. SUMMARY 12/09/2013 12/22/2018 Overview: Htn, HPL, diabetes uncontrolled with hypoglycemia, aortic bioprosthetic valve, on xeralto, with mitral and aortic valves regurgitating, needs Yearly, Echo. Skin cancer , recent excision, Next visit need to do all the preventive measures. PVD and Carotid artery details, endocervical cancer. need to be probed into, got this form her previous records, patient did not mention to us. Carotid artery disease 12/09/2013 Overview: Per her records Type 2 diabetes mellitus wit hout complication, without long-term current use of insulin 11/20/2013 09/12/2021 Overview: 2008; has been well controlled for a while. Metformin caused her diarrhea. Patient had her eyes examined in [place] this year and was told that she had no retinopathy. December 7.5, she has been running around that for the last couple years, didn't take careof he diabetes. Last Assessment & Plan: Last a1c 7.1 on 06/07/19 Not on any home meds at this time (intolerance to metformin in past) Hemoglobin A1C (%) Date Value 10/24/2019 7.0 Follow up with pcp for discussion on initiating therapy documented as of this encounter (statuses as of 03/04/2022) [facility]08-21-2022 History of Past illness Narrative* Problem Noted Date Resolved Date Melena 02/22/2022 02/24/2022 Acute kidney injury 02/22/2022 02/24/2022 Encounter for support and coordination of transi tion of care 02/15/2021 09/12/2021 Overview: 02/13/[address] Ferguson's office following gallbladder ultrasound demonstrating sludge. Admitted to some black stools but not bloody. Patient had Hgb of 7.2, hem positive stool. Vital signs 98.1 F-79-17-131/42-98%. Exam nonacute. Abdomen nondistended with tender epigastric and right upper quadrant. WBC 9.7-RBC 2.49L-Hgb 7.2L-HCT 20 2.8L-RDW 50 4.4H-PLT 232 with normal differential. CMP notable for sodium 132L, BUN 30 7H, creatinine 1.6H with EGFR 30 2L. GLU 139H. Calcium 8.4L troponin was negative. UA was normal. Blood type is B+. Antibody screen negative. Gallbladder ultrasound: No acute abnormalities, apparent solid nodule in right upper pole of right kidney, CT with contrast or MRII recommended. CT abdomen pelvis: Moderate size hiatal hernia with eccentric soft tissue thickening possibly related to hernia but could not exclude mass, recommended endoscopic or barium swallow to further assess. Solid mass right upper pole and right kidney possibly neoplastic. No evidence of SBO or acute pancreatitis. 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 Chest x-ray: No acute abnormalities. Unable to get beds in local hospital, transferred to [facility]. Anemia 10/24/2019 09/12/2021 Last Assessment & Plan: Assessment & PLAN: See above Renal cell carcinoma 10/24/2019 09/12/2021 Last Assessment & Plan: Currently following with urology (Dr. Wagner) outpatient for routine surveillance imaging MRI kidney on 07/11/19 noting stable 2.2 cm right renal mass No plans for surgical intervention at this time Diverticulitis of large inte farooq with perforation and abscess without bleeding 06/16/2019 09/12/2021 Other chest pain 03/27/2019 09/19/2020 Overview: 03/24/19 CTA chest/ thorax: 1. Small incompletely occluded PE 2nd and 3rd branch right upper lobe PA; 2. Stable cardiac enlargement; Moderate calcification aortic root with 4.5cm fusiform dilatation mid-ascending aorta; 3. Atherosclerotic calcifications with ostial stenosis celiac trunk, SMA, bilateral renal arteries; 4. Small dependent pleural effusions, larger on right, compressive atelectasis posterior lung bases. 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 On January 2014, she needed a mammogram, colonosocpy, and BMD, she want the colonoscopy in the fall. Last Assessment & Plan: She has an appointment for the colonoscopy initial eval coming up, BMD was normal, discussed with the patient. SUMMARY 12/09/2013 12/22/2018 Overview: Htn, HPL, diabetes uncontrolled with hypoglycemia, aortic bioprosthetic valve, on xeralto, with mitral and aortic valves regurgitating, needs Yearly, Echo. Skin cancer , recent excision, Next visit need to do all the preventive measures. PVD and Carotid artery details, endocervical cancer. need to be probed into, got this form her previous records, patient did not mention to us. Carotid artery disease 12/09/2013 Overview: Per her records Type 2 diabetes mellitus wit hout complication, without long-term current use of insulin 11/20/2013 09/12/2021 Overview: 2008; has been well controlled for a while. Metformin caused her diarrhea. Patient had her eyes examined in [place] this year and was told that she had no retinopathy. December 09.5, she has been running around that for the last couple years, didn't take careof he diabetes. Last Assessment & Plan: Last a1c 7.1 on 06/07/19 Not on any home meds at this time (intolerance to metformin in past) Hemoglobin A1C (%) Date Value 10/24/2019 7.0 Follow up with pcp for discussion on initiating therapy documented as of this encounter (statuses as of 03/05/2022) [facility]08-21-2022 History of Past illness Narrative* Problem Noted Date Resolved Date Melena 02/22/2022 02/24/2022 Acute kidney injury 02/22/2022 02/24/2022 Encounter for support and coordination of transi tion of care 02/15/2021 09/12/2021 Overview: 02/13/[address] Ferguson's office following gallbladder ultrasound demonstrating sludge. Admitted to some black stools but not bloody. Patient had Hgb of 7.2, hem positive stool. Vital signs 98.1 F-79-17-131/42-98%. Exam nonacute. Abdomen nondistended with tender epigastric and right upper quadrant. WBC 9.7-RBC 2.49L-Hgb 7.2L-HCT 20 2.8L-RDW 50 4.4H-PLT 232 with normal differential. CMP notable for sodium 132L, BUN 30 7H, creatinine 1.6H with EGFR 30 2L. GLU 139H. Calcium 8.4L troponin was negative. UA was normal. Blood type is B+. Antibody screen negative. Gallbladder ultrasound: No acute abnormalities, apparent solid nodule in right upper pole of right kidney, CT with contrast or MRII recommended. CT abdomen pelvis: Moderate size hiatal hernia with eccentric soft tissue thickening possibly related to hernia but could not exclude mass, recommended endoscopic or barium swallow to further assess. Solid mass right upper pole and right kidney possibly neoplastic. No evidence of SBO or acute pancreatitis. 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 Chest x-ray: No acute abnormalities. Unable to get beds in local hospital, transferred to [facility]. Anemia 10/24/2019 09/12/2021 Last Assessment & Plan: Assessment & PLAN: See above Renal cell carcinoma 10/24/2019 09/12/2021 Last Assessment & Plan: Currently following with urology (Dr. Wagner) outpatient for routine surveillance imaging MRI kidney on 07/11/19 noting stable 2.2 cm right renal mass No plans for surgical intervention at this time Diverticulitis of large inte farooq with perforation and abscess without bleeding 06/16/2019 09/12/2021 Other chest pain 03/27/2019 09/19/2020 Overview: 03/24/19 CTA chest/ thorax: 1. Small incompletely occluded PE 2nd and 3rd branch right upper lobe PA; 2. Stable cardiac enlargement; Moderate calcification aortic root with 4.5cm fusiform dilatation mid-ascending aorta; 3. Atherosclerotic calcifications with ostial stenosis celiac trunk, SMA, bilateral renal arteries; 4. Small dependent pleural effusions, larger on right, compressive atelectasis posterior lung bases. 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 On January 2014, she needed a mammogram, colonosocpy, and BMD, she want the colonoscopy in the fall. Last Assessment & Plan: She has an appointment for the colonoscopy initial eval coming up, BMD was normal, discussed with the patient. SUMMARY 12/09/2013 12/22/2018 Overview: Htn, HPL, diabetes uncontrolled with hypoglycemia, aortic bioprosthetic valve, on xeralto, with mitral and aortic valves regurgitating, needs Yearly, Echo. Skin cancer , recent excision, Next visit need to do all the preventive measures. PVD and Carotid artery details, endocervical cancer. need to be probed into, got this form her previous records, patient did not mention to us. Carotid artery disease 12/09/2013 Overview: Per her records Type 2 diabetes mellitus wit hout complication, without long-term current use of insulin 11/20/2013 09/12/2021 Overview: 2008; has been well controlled for a while. Metformin caused her diarrhea. Patient had her eyes examined in [place] this year and was told that she had no retinopathy. December 7.5, she has been running around that for the last couple years, didn't take careof he diabetes. Last Assessment & Plan: Last a1c 7.1 on 06/07/19 Not on any home meds at this time (intolerance to metformin in past) Hemoglobin A1C (%) Date Value 10/24/2019 7.0 Follow up with pcp for discussion on initiating therapy documented as of this encounter (statuses as of 03/11/2022) [facility]08-[facility]-20[facility] History of Past illness Narrative* Problem Noted Date Resolved Date Melena 02/22/2022 02/24/2022 Acute kidney injury 02/22/2022 02/24/2022 Encounter for support and coordination of transi tion of care 02/15/2021 09/12/2021 Overview: 02/13/[address] Ferguson's office following gallbladder ultrasound demonstrating sludge. Admitted to some black stools but not bloody. Patient had Hgb of 7.2, hem positive stool. Vital signs 98.1 F-79-17-131/42-98%. Exam nonacute. Abdomen nondistended with tender epigastric and right upper quadrant. WBC 9.7-RBC 2.49L-Hgb 7.2L-HCT 20 2.8L-RDW 50 4.4H-PLT 232 with normal differential. CMP notable for sodium 132L, BUN 30 7H, creatinine 1.6H with EGFR 30 2L. GLU 139H. Calcium 8.4L troponin was negative. UA was normal. Blood type is B+. Antibody screen negative. Gallbladder ultrasound: No acute abnormalities, apparent solid nodule in right upper pole of right kidney, CT with contrast or MRII recommended. CT abdomen pelvis: Moderate size hiatal hernia with eccentric soft tissue thickening possibly related to hernia but could not exclude mass, recommended endoscopic or barium swallow to further assess. Solid mass right upper pole and right kidney possibly neoplastic. No evidence of SBO or acute pancreatitis. 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 Chest x-ray: No acute abnormalities. Unable to get beds in local hospital, transferred to [facility]. Anemia 10/24/2019 09/12/2021 Last Assessment & Plan: Assessment & PLAN: See above Renal cell carcinoma 10/24/2019 09/12/2021 Last Assessment & Plan: Currently following with urology (Dr. Wagner) outpatient for routine surveillance imaging MRI kidney on 07/11/19 noting stable 2.2 cm right renal mass No plans for surgical intervention at this time Diverticulitis of large inte farooq with perforation and abscess without bleeding 06/16/2019 09/12/2021 Other chest pain 03/27/2019 09/19/2020 Overview: 03/24/19 CTA chest/ thorax: 1. Small incompletely occluded PE 2nd and 3rd branch right upper lobe PA; 2. Stable cardiac enlargement; Moderate calcification aortic root with 4.5cm fusiform dilatation mid-ascending aorta; 3. Atherosclerotic calcifications with ostial stenosis celiac trunk, SMA, bilateral renal arteries; 4. Small dependent pleural effusions, larger on right, compressive atelectasis posterior lung bases. 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 On January 2014, she needed a mammogram, colonosocpy, and BMD, she want the colonoscopy in the fall. Last Assessment & Plan: She has an appointment for the colonoscopy initial eval coming up, BMD was normal, discussed with the patient. SUMMARY 12/09/2013 12/22/2018 Overview: Htn, HPL, diabetes uncontrolled with hypoglycemia, aortic bioprosthetic valve, on xeralto, with mitral and aortic valves regurgitating, needs Yearly, Echo. Skin cancer , recent excision, Next visit need to do all the preventive measures. PVD and Carotid artery details, endocervical cancer. need to be probed into, got this form her previous records, patient did not mention to us. Carotid artery disease 12/09/2013 Overview: Per her records Type 2 diabetes mellitus wit hout complication, without long-term current use of insulin 11/20/2013 09/12/2021 Overview: 2008; has been well controlled for a while. Metformin caused her diarrhea. Patient had her eyes examined in [place] this year and was told that she had no retinopathy. December 7.5, she has been running around that for the last couple years, didn't take careof he diabetes. Last Assessment & Plan: Last a1c 7.1 on 06/07/19 Not on any home meds at this time (intolerance to metformin in past) Hemoglobin A1C (%) Date Value 10/24/2019 7.0 Follow up with pcp for discussion on initiating therapy documented as of this encounter (statuses as of 03/20/2022) [facility]08-21-2022 History of Past illness Narrative* Problem Noted Date Resolved Date Melena 02/22/2022 02/24/2022 Acute kidney injury 02/22/2022 02/24/2022 Encounter for support and coordination of transi tion of care 02/15/2021 09/12/2021 Overview: 02/13/[address] Ferguson's office following gallbladder ultrasound demonstrating sludge. Admitted to some black stools but not bloody. Patient had Hgb of 7.2, hem positive stool. Vital signs 98.1 F-79-17-131/42-98%. Exam nonacute. Abdomen nondistended with tender epigastric and right upper quadrant. WBC 9.7-RBC 2.49L-Hgb 7.2L-HCT 20 2.8L-RDW 50 4.4H-PLT 232 with normal differential. CMP notable for sodium 132L, BUN 30 7H, creatinine 1.6H with EGFR 30 2L. GLU 139H. Calcium 8.4L troponin was negative. UA was normal. Blood type is B+. Antibody screen negative. Gallbladder ultrasound: No acute abnormalities, apparent solid nodule in right upper pole of right kidney, CT with contrast or MRII recommended. CT abdomen pelvis: Moderate size hiatal hernia with eccentric soft tissue thickening possibly related to hernia but could not exclude mass, recommended endoscopic or barium swallow to further assess. Solid mass right upper pole and right kidney possibly neoplastic. No evidence of SBO or acute pancreatitis. 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 Chest x-ray: No acute abnormalities. Unable to get beds in local hospital, transferred to [facility]. Anemia 10/24/2019 09/12/2021 Last Assessment & Plan: Assessment & PLAN: See above Renal cell carcinoma 10/24/2019 09/12/2021 Last Assessment & Plan: Currently following with urology (Dr. Wagner) outpatient for routine surveillance imaging MRI kidney on 07/11/19 noting stable 2.2 cm right renal mass No plans for surgical intervention at this time Diverticulitis of large inte farooq with perforation and abscess without bleeding 06/16/2019 09/12/2021 Other chest pain 03/27/2019 09/19/2020 Overview: 03/24/19 CTA chest/ thorax: 1. Small incompletely occluded PE 2nd and 3rd branch right upper lobe PA; 2. Stable cardiac enlargement; Moderate calcification aortic root with 4.5cm fusiform dilatation mid-ascending aorta; 3. Atherosclerotic calcifications with ostial stenosis celiac trunk, SMA, bilateral renal arteries; 4. Small dependent pleural effusions, larger on right, compressive atelectasis posterior lung bases. 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 On January 2014, she needed a mammogram, colonosocpy, and BMD, she want the colonoscopy in the fall. Last Assessment & Plan: She has an appointment for the colonoscopy initial eval coming up, BMD was normal, discussed with the patient. SUMMARY 12/09/2013 12/22/2018 Overview: Htn, HPL, diabetes uncontrolled with hypoglycemia, aortic bioprosthetic valve, on xeralto, with mitral and aortic valves regurgitating, needs Yearly, Echo. Skin cancer , recent excision, Next visit need to do all the preventive measures. PVD and Carotid artery details, endocervical cancer. need to be probed into, got this form her previous records, patient did not mention to us. Carotid artery disease 12/09/2013 2 Overview: Per her records Type 2 diabetes mellitus wit hout complication, without long-term current use of insulin 11/20/2013 09/12/2021 Overview: 2008; has been well controlled for a while. Metformin caused her diarrhea. Patient had her eyes examined in [place] this year and was told that she had no retinopathy. December 7.5, she has been running around that for the last couple years, didn't take careof he diabetes. Last Assessment & Plan: Last a1c 7.1 on 06/07/19 Not on any home meds at this time (intolerance to metformin in past) Hemoglobin A1C (%) Date Value 10/24/2019 7.0 Follow up with pcp for discussion on initiating therapy documented as of this encounter (statuses as of 03/20/2022) [facility]08-21-2022 History of Past illness Narrative* Problem Noted Date Resolved Date Melena 02/22/2022 02/24/2022 Acute kidney injury 02/22/2022 02/24/2022 Atrial fibrillation 01/12/2022 03/21/2022 Encounter for support and coordination of transi tion of care 02/15/2021 09/12/2021 Overview: 02/13/[address] Ferguson's office following gallbladder ultrasound demonstrating sludge. Admitted to some black stools but not bloody. Patient had Hgb of 7.2, hem positive stool. Vital signs 98.1 F-79-17-131/42-98%. Exam nonacute. Abdomen nondistended with tender epigastric and right upper quadrant. WBC 9.7-RBC 2.49L-Hgb 7.2L-HCT 20 2.8L-RDW 50 4.4H-PLT 232 with normal differential. CMP notable for sodium 132L, BUN 30 7H, creatinine 1.6H with EGFR 30 2L. GLU 139H. Calcium 8.4L troponin was negative. UA was normal. Blood type is B+. Antibody screen negative. Gallbladder ultrasound: No acute abnormalities, apparent solid nodule in right upper pole of right kidney, CT with contrast or MRII recommended. CT abdomen pelvis: Moderate size hiatal hernia with eccentric soft tissue thickening possibly related to hernia but could not exclude mass, recommended endoscopic or barium swallow to further assess. Solid mass right upper pole and right kidney possibly neoplastic. No evidence of SBO or acute pancreatitis. 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 Chest x-ray: No acute abnormalities. Unable to get beds in local hospital, transferred to [facility]. Renal cell carcinoma 10/24/2019 09/12/2021 Last Assessment & Plan: Currently following with urology (Dr. Wagner) outpatient for routine surveillance imaging MRI kidney on 07/11/19 noting stable 2.2 cm right renal mass No plans for surgical intervention at this time Diverticulitis of large inte farooq with perforation and abscess without bleeding 06/16/2019 09/12/2021 Other chest pain 03/27/2019 09/19/2020 Overview: 03/24/19 CTA chest/ thorax: 1. Small incompletely occluded PE 2nd and 3rd branch right upper lobe PA; 2. Stable cardiac enlargement; Moderate calcification aortic root with 4.5cm fusiform dilatation mid-ascending aorta; 3. Atherosclerotic calcifications with ostial stenosis celiac trunk, SMA, bilateral renal arteries; 4. Small dependent pleural effusions, larger on right, compressive atelectasis posterior lung bases. 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 Wakes up in the middle of the night feeling she has to eat.has a gnawing of the stomach. Routine health maintenance 01/08/201409/12 Overview: Had her feet tested for diabetes, January 2014, patient was Normal, for monofilament, i did not have the lower frequency tuning fork, but it seemed that with the higher one she could not feel the vibration. On January 2014, she needed a mammogram, colonosocpy, and BMD, she want the colonoscopy in the fall. Last Assessment & Plan: She has an appointment for the colonoscopy initial eval coming up, BMD was normal, discussed with the patient. SUMMARY 12/09/2013 12/22/2018 Overview: Htn, HPL, diabetes uncontrolled with hypoglycemia, aortic bioprosthetic valve, on xeralto, with mitral and aortic valves regurgitating, needs Yearly, Echo. Skin cancer , recent excision, Next visit need to do all the preventive measures. PVD and Carotid artery details, endocervical cancer. need to be probed into, got this form her previous records, patient did not mention to us. Carotid artery disease 12/09/2013 Overview: Per her records Type 2 diabetes mellitus wit hout complication, without long-term current use of insulin 11/20/2013 09/12/2021 Overview: 2008; has been well controlled for a while. Metformin caused her diarrhea. Patient had her eyes examined in [place] this year and was told that she had no retinopathy. December 7.5, she has been running around that for the last couple years, didn't take careof he diabetes. Last Assessment & Plan: Last a1c 7.1 on 06/07/19 Not on any home meds at this time (intolerance to metformin in past) Hemoglobin A1C (%) Date Value 10/24/2019 7.0 Follow up with pcp for discussion on initiating therapy documented as of this encounter (statuses as of 03/21/2022) [facility]08-19-2022 Miscellaneous Notes* Telephone Encounter - Cande Jamison PA-C - 02/20/2022 4:06 PM EDT Path report and images reviewed with Dr. Encinas, who also participated in development of the following plan. No active bleeding or ulcerations noted. Pathology showed chronic active gastritis. Recommend avoiding caffeine and acidic foods, avoid eating/drinking after [address] Encinas no need for medical treatment of the gastritis at this time. * Telephone Encounter - Giovanna Powell RN - 02/12/2022 3:32 PM EDT Berta had an EGD completed on 01/02/[address] Encinas. She was admitted to the hospital shortly after and did not schedule a follow up visit with our office. Could you please review the pathology and advise regarding follow up testing. Giovanna Powell RN documented in this encounterL[facility] History of Present illness Narrative* M FERNANDO Piedra-Ivett - 02/20/2022 9:40 AM EDT 76 year old female with c/o here for acute visit Diarrhea in evenings over last 2 weeks. Maybe a little mild abdominal discomfort but not painful. Denies N/V/ heart burn, reflux. Appetite is "okay". Bright red blood last 3-4 at first red in toilet and on tissue, this morning was bright red with some maroon Expresses concern about taking ASA with Xarelto, also has read about diverticular bleeding Has felt low energy, slightly weaker. No syncopal sx. Watchman 45 day period not over until 03/23/2022- anxious about potential risk of having to [employer] with family. Component Latest Ref Rng & Units 12/26/2021 01/09/2022 02/17/2022 WBC 3.70 - 11.00 k/uL 10.54 8.86 8.35 RBC 3.90 - 5.20 m/uL 3.30 (L) 4.23 3.58 (L) Hemoglobin 11.5 - 15.5 g/dL 8.1 (L) 10.5 (L) 8.9 (L) Hematocrit 36.0 - 46.0 % 28.2 (L) 34.4 (L) 29.3 (L) MCV 80.0 - 100.0 fL 85.5 81.3 81.8 MCH 26.0 - 34.0 pg 24.5 (L) 24.8 (L) 24.9 (L) MCHC 30.5 - 36.0 g/dL 28.7 (L) 30.5 30.4 (L) RDW-CV 11.5 - 15.0 % 16.8 (H) 16.6 (H) 20.1 (H) Platelet Count 150 - 400 k/uL 248 221 253 MPV 9.0 - 12.7 fL 10.3 9.9 9.9 Absolute nRBC <0.01 k/uL <0.01 <0.01 <0.01 Component Latest Ref Rng & Units 03/22/2019 01/12/2022 01/12/2022 11:23 AM 11:47 AM Activated Clotting Time (POCT) 74 - 137 sec 395 (A) 457 (A) 433 (A) Component Latest Ref Rng & Units 12/11/2020 01/09/2022 Glucose 74 - 99 mg/dL 135 (H) 103 (H) BUN 7 - 21 mg/dL 36 (H) 24 (H) Creatinine 0.58 - 0.96 mg/dL 1.49 (H) 1.24 (H) Sodium 136 - 144 mmol/L 135 (L) 136 Potassium 3.7 - 5.1 mmol/L 4.8 4.6 Chloride 97 - 105 mmol/L 101 102 CO2 22 - 30 mmol/L 23 23 Anion Gap 9 - 18 mmol/L 11 11 Calcium 8.5 - 10.2 mg/dL 9.7 9.5 eGFR- 41 eGFR-All Other Races . 34 eGFR >=60 mL/min/1.73m 45 (L) HISTORIES FAMILY HISTORY Problem Relation Age of Onset other (Heart Problems) Mother other (myocardial infarction) Mother other (cardiovascular disease) Mother other (Heart Attack) Father other (cardiovascular disease) Father Diabetes Maternal Grandmother PAST MEDICAL HISTORY Diagnosis Date Abnormal colonoscopy [...] surgical removal Chronic mastoiditis of left side Diabetes (HCC) Diabetes (HCC) GERD (gastroesophageal reflux disease) H/O: GI bleed High blood pressure Hypercholesterolemia Mastoiditis of right side s/p mastoidectomy, complete opacitificationright tympanic cavity and mastoid cells on CT 06/01/16 Mitral valve regurgitation Pacemaker 10/21/[address] TRELL VERNON [id number] pulse generator, his bundle lead, right atrial lead Peripheral arterial disease (HCC) Rheumatic fever Steatosis, liver 03/26/2014 fatty liver on US. 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 Lua PACEMAKER 10/2019 PART. HYSTERECTOMY W/WO RMVL OVARIES/TUBES 1974 h/o cervical cancer ovaries remain PAST SURGICAL HISTORY OF 1996 Aortic valve repair, Dr. Apodaca PAST SURGICAL HISTORY OF 2001 [address] Beltrán, [facility] PAST SURGICAL HISTORY OF 2015 clipping and coil for brain aneurysm Social History Tobacco Use Smoking status: Former Types: Cigarettes Quit date: 02/11/1970 Years since quittin.0 Smokeless tobacco: Never Vaping Use Vaping Use: Never used Substance Use Topics Alcohol use: Yes Alcohol/week: 1.0 standard drink Types: 1 Glasses of Wine (5oz) per week Comment: red wine 2-3 times a week- occasional Drug use: No ACTIVE PROBLEM LIST History of Prosthetic Aortic Valve Replacement Aortic Prosthetic Valve Regurgitation Paroxysmal Atrial Fibrillation (Hcc) Htn (Hypertension) Hyperlipidemia With Target Ldl Less Than 70 Gerd (Gastroesophageal Reflux Disease) Chronic Anticoagulation Fatigue Sob (Shortness of Breath) H/O Rheumatic Heart Disease Basal Cell Carcinoma Left Shoulder Pain Abdominal Pain Intracranial Aneurysm Bilateral Carotid Artery Stenosis Osteopenia of Left Lower Leg Mastoiditis of Right Side Chronic Mastoiditis of Left Side Personal History of Colonic Polyps History of Ischemic Colitis Adenomatous Polyp of Descending Colon Skin Cancer Pad (Peripheral Artery Disease) (Hcc) Pedro Aneurysm of Anterior Communicating Artery Stage 3 Chronic Renal Impairment Associated With Type 2 Diabetes Mellitus (Hcc) History of Pulmonary Embolism Ascending Aorta Dilatation (Hcc) Chronic Bilateral Pleural Effusions Colovesical Fistula Renal Mass, Right Diverticulitis Large Intestine W/O Perforation Or Abscess W/O Bleeding Renal Cell Carcinoma, Right (Hcc) Iron Deficiency Anemia Hypomagnesemia Gastrointestinal Hemorrhage Associated With Acute Gastritis Esophageal Stenosis Dilated Cardiomyopathy (Hcc) Chronic Diastolic Congestive Heart Failure (Hcc) Sss (Sick Sinus Syndrome) ([facility]) Duodenal Ulcer Type 2 Diabetes Mellitus With Diabetic Peripheral Angiopathy Without Gangrene, Without Long-Term Current Use of Insulin (Hcc) Atrial Fibrillation (Hcc) Current Outpatient Medications Medication Sig Dispense Refill sodium chloride 0.9 %, flush, (BD POSIFLUSH) syringe Inject 2-10 mL intravenously as directed. For Echo procedure 10 mL 0 sodium chloride 0.9 %, flush, (BD POSIFLUSH) syringe Inject 2-10 mL intravenously as directed. For Echo procedure 10 mL 0 aspirin 81 mg chewable tablet Take 1 tablet by mouth once daily. 30 tablet 11 rivaroxaban (XARELTO) 15 mg tablet Take 1 tablet by mouth daily with dinner. 30 tablet 2 omeprazole (PRILOSEC) 40 mg capsule Take 1 capsule by mouth once daily. 90 capsule 1 amLODIPine (NORVASC) 5 mg tablet Take 1 tablet by mouth twice daily. 180 tablet 0 lisinopril (ZESTRIL, PRINIVIL) 40 mg tablet Take 1 tablet by mouth once daily. 90 tablet 3 metoprolol succinate ER (TOPROL XL) 25 mg 24 hr tablet Take 1 tablet by mouth once daily. 90 tablet3 furosemide (LASIX) 20 mg tablet Take 1 tablet by mouth once daily. 90 tablet 3 simvastatin (ZOCOR) 20 mg tablet Take 1 tablet by mouth daily at bedtime. 90 tablet 3 traZODone (DESYREL) 50 mg tablet Take 1 tablet by mouth daily at bedtime. 30 tablet 2 sodium chloride 0.9 %, flush, (BD POSIFLUSH) syringe Inject 2-10 mL intravenously as directed. For Echo procedure 10 mL 0 mirtazapine (REMERON) 15 mg tablet Take 1 tablet by mouth daily at bedtime. (Patient taking differently: Take 15 mg by mouth at bedtime as needed. ) 30 tablet 2 acetaminophen (TYLENOL) 500 mg tablet Take 1-2 tablets by mouth every 6 hours as needed. Cholecalciferol-Soy Isoflavone 2,000-64 unit-mg tab Take 1 capsule by mouth once daily. clotrimazole-betamethasone (LOTRISONE) cream Apply 1 application to affected area twice daily. UNTIL CLEAR FOR UP TO 2-3 WEEKS 30 g 1 magnesium oxide (MAG-OX) 400 mg (241.3 mg magnesium) tablet Take 1 tablet by mouth twice daily for 10 days. (Patient taking differently: Take 400 mg by mouth once daily. ) 20 tablet 0 blood sugar diagnostic (BLOOD GLUCOSE TEST) test strip Test blood sugar(s) 2 times daily. Dx: Type 2 DM - Controlled E11.9 Insulin: No 50 Strip 11 UBIDECARENONE (COQ-10 ORAL) Take 1 capsule by mouth once daily. No current facility-administered medications for this visit. BP CONTROLLED (<130/80) Never done DIABETIC FOOT EXAM due on 01/08/2015 ADVANCE DIRECTIVE DISCUSSION Never done COVID-19 VACCINE(4 - Booster for Pfizer series) due on 07/13/2021 DILATED RETINAL EXAM due on 02/19/2022 EXAM: BP 132/78 Pulse 116 Resp 16 Wt 64.9 kg (143 lb) SpO2 100% BMI 25.33 kg/m Pleasant frail older woman in no acute distress. Alert and oriented all spheres. Normal affect and cognition. Speech normal. No deficits to learning or comprehension. Skin warm, dry, pink to lips and nailbeds. Normal turgor. Respirations regular and unlabored. HEENT: NCAT. No scleral icterus or conjunctival injection. Appears pale to conjunctiva. Oral membranes moist and pink. No cervical lymph nodes. Thyroid non-tender, no masses, or enlargement. Carotidspulses 2+/4+ without bruits. No JVD with HOB at 30 degrees. Chest is normal shape. Lungs are clear to all rosas with good air exchange through out. HRRR rapid, without murmur or gallop. Abdomen: active bowel sounds throughout, soft, nontender, no masses or organomegaly. No CVAT. Extrem: no clubbing or cyanosis. Edema: none. Extremities are warm and pink with prompt capillary refill. ASSESSMENT/PLAN: 1. Rectal bleeding - ICD9: 569.3, ICD10: K62.5 (primary diagnosis) Bleeding consistent with rectal etiology. Progressive anemia may or may not be related. Recheck labs due to pallor and weakness. - HEMOGLOBIN (HGB) - HEMATOCRIT (HCT) - BASIC METABOLIC PNL 2. Anemia, blood loss - ICD9: 280.0, ICD10: D50.0 As above - HEMOGLOBIN (HGB) - HEMATOCRIT (HCT) - BASIC METABOLIC PNL 3. Diarrhea, unspecified type - ICD9: 787.91, ICD10: R19.7 Etiology unclear. No evidence of diverticulitis (patient's concern). May need transfusion as previously not symptomatic even with low counts. - HEMOGLOBIN (HGB) - HEMATOCRIT (HCT) - BASIC METABOLIC PNL Doreen Le PA-C documented in [facility] encounterL[facility] Miscellaneous Notes* Telephone Encounter - Deonna Bryant - 01/21/2022 10:30 AM EDT January 21, 2022 Patient Contact Number: [phone] (home) [phone] (cell) Patient last seen within the last year: Yes Reason for Call: Patient called to schedule follow up from Watchman procedure. Order for ABDIEL needs to be placed (can be done by HIM MANAGER) and patient should contact office as soon as ABDIEL is done so it can be reviewed (should be done 45 days after the procedure). HIM MANAGER: Please place Order for ABDIEL. Admin to request ABDIEL for after 02/26/2022 but before 03/07/2022. Thank you, Deonna Bryant, Admin documented in this encounterLake[facility]07[facility]22 Miscellaneous Notes* Telephone Encounter - Ivory Graham - 01/19/2022 11:05 AM EDT Call from pharmacy requesting refill. Pending Prescriptions Disp Refills ASPIRIN 81 MG CHEWABLE TABLET 90 tablet 3 Sig: Take 1 tablet by mouth once daily. BRAYAN: No Patient last seen 01/09/2022 Ivory Graham documented in this encounterL[facility]22 Instructions* Patient Instructions* Doreen Le PA-C - 01/16/2022 10:47 AM EDT Shingles (Herpes Zoster) What is shingles? Shingles is an infection caused by the same virus that causes chickenpox. This virus is called varicella zoster. You cannot develop shingles unless you have had a previous infection of chickenpox (usually as a child). Shingles is also called herpes zoster. This infection is most common in people over 60 years of age, but young people can have it as well. How does it occur? After you recover from chickenpox, the chickenpox virus stays in your body. It moves to the roots of your nerve cells (near the spinal cord) and becomes inactive (dormant). Later, if the virus becomes active again, the symptoms are called shingles. What exactly causes the virus to become active is not known. A weakened immune system seems to allow reactivation of the virus. This may occur with immune- suppressing medicines, with another illness,or after major surgery. It is also seen as a complication of cancer or AIDS. Advancing age and chronic use of cortisone-type drugs may trigger shingles. The virus may also become active again after the skin is injured or sunburned. Emotional stress seems to be a common trigger as well. What are the symptoms? The first sign of shingles is often burning, sharp pain, tingling, or numbness in or under your skin on one side of your body or face. The most common site is the back or upper abdomen. You may have severe itching or aching. You also may feel tired and ill with fever, chills, headache, and upset stomach. After several days, you will notice a rash of small, clear, fluid-filled blisters on reddened skin.Within 3 days after they appear, the blisters will turn yellow, then dry and crust over. Over the next 2 weeks the crusts will drop off, sometimes leaving small, pitted scars. Because they tend to follow nerve paths, the blisters are usually found in a line, often extending from the back or flank around to the abdomen, almost always on just one side. Shingles usually doesn't cross the midline of the body. The rash also may appear on one side of your face. Some people have painful eye inflammations and infections. Is shingles contagious? You cannot get shingles from someone else, but you may get chickenpox from contact with shingles blisters if you have not had chickenpox before. The shingles virus is in the blister fluid. The virus can spread by direct contact with a blister. It can also be spread by indirect contact, for example,if you use a washcloth that has blister fluid on it. If you have shingles, avoid contact with infants, children, women, and adults who have never had chickenpox or the chickenpox shot until your blisters are completely dry. How is shingles diagnosed? Your health care provider will ask about your symptoms and examine you. Your provider may order labtests to look for the virus in fluid from a blister. How is it treated? It is best to start treatment within 24 to 48 hours after symptoms start. Home care includes: Putting cool, moist washcloths on the rash. Taking nonprescription painkillers, such as acetaminophen. Your health care provider may prescribe: an antiviral drug, such as acyclovir, to speed recovery and lessen the chance of prolonged symptomsfrom nerve inflammation stronger medicine for pain if nonprescription painkillers are not helping enough antibacterial salves or lotions to help prevent bacterial infection of the blisters capsaicin cream for pain corticosteroids (if you are over 50). How long will the effects last? The rash from shingles will heal in 1 to 3 weeks and the pain or irritation will usually disappear within 3 to 5 weeks. If the virus damages a nerve, you may have pain, numbness, or tingling for months or even years after the rash is healed. This is a condition called postherpetic neuralgia. It is most likely to occurafter a shingles outbreak in people over 50 years old. Antiviral medicine prescribed at the time the shingles is diagnosed and taken for 7 days can help prevent this problem. When shingles occurs on the head or scalp, symptoms can include headaches and weakness of one side of the face (causing that side of the face to look droopy). Even if you have a lot of weakness of the face muscles, the symptoms usually go away eventually, although it may take many months. How can I take care of myself? Take a pain-relief medicine such as acetaminophen. Take other medicine as prescribed by your healthcare provider. Put a cool compress on the rash (such as a cool, moist washcloth). Rest in bed during the early stages if you have fever and other symptoms. Try to avoid having clothing or bed linens rubbing against the rash, which might irritate it. Call your health care provider if: You develop worsening pain or fever. You develop a stiff neck, hearing loss, or changes in thinking and reasoning. The blisters show signs of bacterial infection, such as increasing pain or redness, or milky yellowdrainage from the blister sites. The blisters are close to the eyes or you have pain in your eyes. How can I help prevent shingles? If you have never had chickenpox, you can get a shot to help prevent infection with the chickenpox virus. You can protect your immune system and lessen your chances of getting shingles by trying to keep your stress under control. Published by [employer]. This content is reviewed periodically and is subject to change as new health information becomes available. The information is intended to inform and educate and is not a replacement for medical evaluation, advice, diagnosis or treatment by a healthcare professional. Developed by [employer]. Copyright 2005 [employer] and/or one of its subsidiaries. All Rights Reserved. documented in this encounterLake[facility]07-15-[facility]22 History of Present illness Narrative* M Claudia Le PA-C - 01/16/2022 10:32 AM EDT 76 year old female with c/o Had Watchman procedure completed on Wednesday and has done well. Was stressed about having it done. Notes last 48h tender rash/ bumps appeared on left temporal face to zygomatic arch No eye pain or sx. Thought at first from surgery tape but progress. 50 days until she can stop anticoagulants. Doing well in general. Component Latest Ref Rng & Units 12/26/2021 01/09/2022 WBC 3.70 - 11.00 k/uL 10.54 8.86 RBC 3.90 - 5.20 m/uL 3.30 (L) 4.23 Hemoglobin 11.5 - 15.5 g/dL 8.1 (L) 10.5 (L) Hematocrit 36.0 - 46.0 % 28.2 (L) 34.4 (L) MCV 80.0 - 100.0 fL 85.5 81.3 MCH 26.0 - 34.0 pg 24.5 (L) 24.8 (L) MCHC 30.5 - 36.0 g/dL 28.7 (L) 30.5 RDW-CV 11.5 - 15.0 % 16.8 (H) 16.6 (H) Platelet Count 150 - 400 k/uL 248 221 MPV 9.0 - 12.7 fL 10.3 9.9 Absolute nRBC <0.01 k/uL <0.01 <0.01 HISTORIES FAMILY HISTORY Problem Relation Age of Onset other (Heart Problems) Mother other (myocardial infarction) Mother other (cardiovascular disease) Mother other (Heart Attack) Father other (cardiovascular disease) Father Diabetes Maternal Grandmother PAST MEDICAL HISTORY Diagnosis Date Abnormal colonoscopy [...] surgical removal Chronic mastoiditis of left side Diabetes (HCC) Diabetes (HCC) GERD (gastroesophageal reflux disease) H/O: GI bleed High blood pressure Hypercholesterolemia Mastoiditis of right side s/p mastoidectomy, complete opacitificationright tympanic cavity and mastoid cells on CT 06/01/16 Mitral valve regurgitation Pacemaker 10/21/[address] TRELL VERNON [id number] pulse generator, his bundle lead, right atrial lead Peripheral arterial disease (HCC) Rheumatic fever Steatosis, liver 03/26/2014 fatty liver on US. 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 Lua PACEMAKER 10/2019 PART. HYSTERECTOMY W/WO RMVL OVARIES/TUBES 1974 h/o cervical cancer ovaries remain PAST SURGICAL HISTORY OF 1996 Aortic valve repair, Dr. Apodaca PAST SURGICAL HISTORY OF 2001 [address] Beltrán, [facility] PAST SURGICAL HISTORY OF 2016 clipping and coil for brain aneurysm Social History Tobacco Use Smoking status: Former Smoker Quit date: 02/11/1970 Years since quittin.9 Smokeless tobacco: Never Used Vaping Use Vaping Use: Never used Substance Use Topics Alcohol use: Yes Alcohol/week: 1.0 standard drink Types: 1 Glasses of Wine (5oz) per week Comment: red wine 2-3 times a week- occasional Drug use: No ACTIVE PROBLEM LIST History of Prosthetic Aortic Valve Replacement Aortic Prosthetic Valve Regurgitation Paroxysmal Atrial Fibrillation (Hcc) Htn (Hypertension) Hyperlipidemia With Target Ldl Less Than 70 Gerd (Gastroesophageal Reflux Disease) Chronic Anticoagulation Fatigue Sob (Shortness of Breath) H/O Rheumatic Heart Disease Basal Cell Carcinoma Left Shoulder Pain Abdominal Pain Intracranial Aneurysm Bilateral Carotid Artery Stenosis Osteopenia of Left Lower Leg Mastoiditis of Right Side Chronic Mastoiditis of Left Side Personal History of Colonic Polyps History of Ischemic Colitis Adenomatous Polyp of Descending Colon Skin Cancer Pad (Peripheral Artery Disease) ([facility]) Pedro Aneurysm of Anterior Communicating Artery Stage 3 Chronic Renal Impairment Associated With Type 2 Diabetes Mellitus ([facility]) History of Pulmonary Embolism Ascending Aorta Dilatation ([facility]) Chronic Bilateral Pleural Effusions Colovesical Fistula Renal Mass, Right Diverticulitis Large Intestine W/O Perforation Or Abscess W/O Bleeding Renal Cell Carcinoma, Right (Hcc) Iron Deficiency Anemia Hypomagnesemia Gastrointestinal Hemorrhage Associated With Acute Gastritis Esophageal Stenosis Dilated Cardiomyopathy (Hcc) Chronic Diastolic Congestive Heart Failure ([facility]) Sss (Sick Sinus Syndrome) ([facility]) Duodenal Ulcer Type 2 Diabetes Mellitus With Diabetic Peripheral Angiopathy Without Gangrene, Without Long-Term Current Use of Insulin ([facility]) Atrial Fibrillation ([facility]) Current Outpatient Medications Medication Sig Dispense Refill aspirin 81 mg chewable tablet Take 1 tablet by mouth once daily. 30 tablet 11 rivaroxaban (XARELTO) 15 mg tablet Take 1 tablet by mouth daily with dinner. 30 tablet 2 omeprazole (PRILOSEC) 40 mg capsule Take 1 capsule by mouth once daily. 90 capsule 1 amLODIPine (NORVASC) 5 mg tablet Take 1 tablet by mouth twice daily. 180 tablet 0 lisinopril (ZESTRIL, PRINIVIL) 40 mg tablet Take 1 tablet by mouth once daily. 90 tablet 3 metoprolol succinate ER (TOPROL XL) 25 mg 24 hr tablet Take 1 tablet by mouth once daily. 90 tablet3 furosemide (LASIX) 20 mg tablet Take 1 tablet by mouth once daily. 90 tablet 3 simvastatin (ZOCOR) 20 mg tablet Take 1 tablet by mouth daily at bedtime. 90 tablet 3 traZODone (DESYREL) 50 mg tablet Take 1 tablet by mouth daily at bedtime. 30 tablet 2 sodium chloride 0.9 %, flush, (BD POSIFLUSH) syringe Inject 2-10 mL intravenously as directed. For Echo procedure 10 mL 0 mirtazapine (REMERON) 15 mg tablet Take 1 tablet by mouth daily at bedtime. (Patient taking differently: Take 15 mg by mouth at bedtime as needed. ) 30 tablet 2 acetaminophen (TYLENOL) 500 mg tablet Take 1-2 tablets by mouth every 6 hours as needed. Cholecalciferol-Soy Isoflavone 2,000-64 unit-mg tab Take 1 capsule by mouth once daily. clotrimazole-betamethasone (LOTRISONE) cream Apply 1 application to affected area twice daily. UNTIL CLEAR FOR UP TO 2-3 WEEKS 30 g 1 blood sugar diagnostic (BLOOD GLUCOSE TEST) test strip Test blood sugar(s) 2 times daily. Dx: Type 2 DM - Controlled E11.9 Insulin: No 50 Strip 11 UBIDECARENONE (COQ-10 ORAL) Take 1 capsule by mouth once daily. valACYclovir (VALTREX) 1 gram Take 1 tablet by mouth every 12 hours for 7 days. 14 tablet 0 mupirocin (BACTROBAN) 2 % ointment Apply to affected area three times daily for 10 days. 15 g 0 magnesium oxide (MAG-OX) 400 mg (241.3 mg magnesium) tablet Take 1 tablet by mouth twice daily for 10 days. (Patient taking differently: Take 400 mg by mouth once daily. ) 20 tablet 0 No current facility-administered medications for this visit. BP CONTROLLED (<130/80) Never done DIABETIC FOOT EXAM due on 01/08/2015 ADVANCE DIRECTIVE DISCUSSION Never done COVID-19 VACCINE(4 - Booster for Pfizer series) due on 07/13/2021 EXAM: BP 138/72 Pulse 92 Temp 36.9 C (98.5 F) (Right Tympanic) Resp 16 Wt 64.4 kg (142 lb) [id number]% BMI 25.15 kg/m Pleasant frail adult womanin no acute distress. Alert and oriented all spheres. Normal affect and cognition. Speech normal. No deficits to learning or comprehension. Skin warm, dry, pink to lips and nailbeds. Normal turgor. Respirations regular and unlabored. Vesicular Slightly erythematous rash in clumps across right temporal face and across zygomatic arch. HEENT: NCAT. No scleral icterus or conjunctival injection. No light sensitivity. Anterior chambers deep. TM's clear. Nose and oropharynx free from injection or lesion. Oral membranes moist and pink. No cervical lymph nodes. Chest is normal shape. Lungs are clear to all rosas with good air exchange through out. HRRR without murmur or gallop. No lifts, heaves, or rubs. Extrem: no clubbing or cyanosis. Edema: frail adult woman. Extremities are warm and pink with prompt capillary refill. ASSESSMENT/PLAN: 1. Atrial fibrillation, unspecified type (HCC) - ICD9: 427.31, ICD10: I48.91 (primary diagnosis) 2. Presence of Watchman left atrial appendage closure device - ICD9: V45.09, ICD10: Z95.818 Doing well Stable CBC 3. Herpes zoster without complication - ICD9: 053.9, ICD10: B02.9 Educated on HZ rash, communicability, medications F/u prn - VALACYCLOVIR 1 GRAM TABLET - MUPIROCIN 2 % TOPICAL OINTMENT Doreen Le PA-C documented in this encounterL[facility]07-08-2022 History of Present illness Narrative* Diane Blanchard RN - 01/09/2022 3:33 PM EDT THE FOLLOWING WAS EVALUATED Motivation To Learn: Interested Family/Significant Other Support: High - Very involved in pt care Cognitive Ability: Alert and oriented Patient Learns Best By: Verbal Instruction The Following Influencing Factors Were Barriers To This Education Session: None The Following Physical Limitations Were Barriers To This Education Session: None Instruction Provided To: Patient and family member Procedure: TransEsophageal Echo (ABDIEL) Watchman Pre-procedure information reviewed: Patient ID verified Procedure verified Physician verified Explanation of procedure Sedation level during procedure medication instructions from EP lab request: Hold all meds the morning of the procedure. Patientdenies missing any doses of Xarelto in the past 3 weeks. Travel instructions/restrictions Scheduling information Possible same day discharge versus overnight hospital stay Check out time Family waiting area Physician contact with family after procedure Post Procedure Expectations reviewed: Inpatient hospital stay Post procedure antiarrhythmics and anticoagulation will be discussed with Physician, nurse practitioner or Physician accounts payable assistant upon discharge Instructions for transmitting EKG to Monitoring Center 3 month follow up instructions Contact number for information and questions Patient Evaluation: Verbalizes understanding Follow Up Plan: Follow up as directed by MD. Supplemental Material Given: Written Material Patient education regarding radiation exposure. Instructed By Diane Blanchard RN. In Department of CARDIOLOGY. documented in this encounterL[facility]07-08-2022 Instructions* Patient Instructions* Emilia Diallo MD - 01/09/2022 2:19 PM EDT Proceed with your Watchman evaluation. Consider discussing a hematology evaluation in addition to further GI work up as appropriate. Follow up with Dr. Burdick as planned. Follow up with PCP re: prevention in addition to follow up of the kidney mass that was identified on the CT. documented in this encounterLake[facility]07-08-2022 History of Present illness Narrative* Emilia Diallo MD - 01/09/2022 2:15 PM EDT Images from the original note were not included. [facility] [place] Martha Mel[facility]dez Department of Cardiovascular Medicine SECTION OF CLINICAL CARDIOLOGY OUTPATIENT VISIT DATE January 09, 2022 OUTPATIENT VISIT TYPE CON PRIMARY CARE PHYSICIAN: Doreen Le [address] [place] [address] REFERRING PHYSICIAN: Chandler Swan [id number] [facility] [id number] CHIEF COMPLAINT: Shared decision making for Watchman procedure. HISTORY OF PRESENT ILLNESS: Ms. Sanches is a 76 year old woman with a history of remote aortic valve replacement with homograft in 1996 and possible repair of the ascending aorta, hypertension, dyslipidemia, brain aneurysm s/pcoiling (2015), SSS s/p PPM 10/21/20, GI bleed, and symptomatic, persistent, drug refractory atrial f ibrillation s/p PVI 2018 referred for shared decision making for Watchman. She is a pt of Dr. Burdick last seen in 09/2021. Plan for Watchman due to issues with anemia. Per review of Dr. Swan's notes, She developed stomach pain in February 2021, with concern for GI bleeding. She has had significant anemia requiring transfusions in June. She has undergone an extensive GI evaluation, and the source appears to be an occult GI bleed. However, her upper and lower endoscopy were nondiagnostic. She was recommended to have capsule endoscopy but this has not yet been completed. She has also had somenosebleeds, with a significant one in May, but she recovered at home. Her Xarelto dose was reduced to 15 mg in December 2020. She has not had further nosebleeds. She was told the GI bleed was most likely related to gastritis. Her abdominal pain has subsided and her blood counts have improved". Plan for Watchman. She is on Xarelto. Her hgb dropped further 10.9--> 7.7. Received 2 unit(s) PRBCs last week. [id number] score: 7 (congestive heart failure, hypertension, age >/=75, diabetes, vascular disease, female) - on Xarelto 15 mg HASBLED score: 4 (HTN, CKD, bleeding, elderly) She complains of chronic shortness of breath and fatigue. She denies chest pain, orthopnea, cough, edema, palpitations, PND, lightheadedness or syncope. Nursing Intake : Ms. Berta Sanches is a 76 year old female from [place], [place] here today for preopeartive cardiovascular evaluation for scheduled watchman procedure on 01/12/[address] Chandler Swan. She has a significant medical history of remote aortic valve replacement with homograft in 1996 andpossible repair of the ascending aorta, hypertension, dyslipidemia, brain aneurysm s/p coiling (2015), SSS s/p PPM 10/21/20, GI bleed, and symptomatic, persistent, drug refractory atrial fibrillation s/p PVI 2018 She reports the following symptoms shortness of breath and increased fatigue due to her anemia. Patient denies the following of chest pain, palpitations, lightheadedness, dizziness, syncope, PND, andedema. She currently is retired. She follows a regular diet. She participates in walking for exercise/activity. Their primary concern for today's visit is for scheduled watchman procedure on 01/12/[address] Chandler Swan. PAST CARDIAC HISTORY: As above Past Medical History: 11/26/2016: Abnormal colonoscopy Comment: 08/15/15 colonoscopy for anemia hgb 10.8 with bx ileocecal valve with ischemic bowel disease with focal mucosal ulceration 07/13/2015: Abnormal CT of the abdomen Comment: diffuse calcification aorta without dilitation, wall thcikening right colon suspicious for mass (ileocecal ulcer on colonoscopy), diverticulosis right colon No date: Abnormal CXR Comment: chronic bilateral interstitial markings, moderate cardiomegaly No date: Atrial fibrillation (HCC) No date: Pedro aneurysm of anterior communicating artery Comment: Dr. [facility] 11/26/2016: Bilateral carotid artery stenosis Comment: 05/27/16 US moderate 50-69% stenosis right and left 07/20/2015: Bilateral pneumonia No date: Cancer of cervix (HCC) No date: Cervical cancer (HCC) Comment: 1973 06/01/2015: Chest pain Comment: negative work up with nuclar stress No date: CHF (congestive heart failure) (HCC) No date: Cholesteatoma of right ear Comment: surgical removal No date: Chronic mastoiditis of left side No date: Diabetes (HCC) No date: Diabetes (HCC) No date: GERD (gastroesophageal reflux disease) No date: H/O: GI bleed No date: High blood pressure No date: Hypercholesterolemia No date: Mastoiditis of right side Comment: s/p mastoidectomy, complete opacitificationright tympanic cavity and mastoid cells on CT 06/01/16 No date: Mitral valve regurgitation 10/21/2020: Pacemaker Comment: [employer] SANIA XT DR TRELL VERNON [id number] pulse generator, his bundle lead, right atrial lead No date: Peripheral arterial disease (HCC) No date: Rheumatic fever 03/26/2014: Steatosis, liver Comment: fatty liver on US. No gallstones No date: Tachy-pavan syndrome (HCC) Past Surgical History: 2019: ABLATION Comment: for afib 2002, 2003,04/30/15: ANESTHESIA EXTERNAL MIDDLE & INNER EAR W/BX NOS 2018: CARDIOVERSION 02/28/2021: EGD Comment: 02/28/2021: ESOPHAGOGASTRODUODENOSCOPY TRANSORAL DIAGNOSTIC 07/18/2019: LAP COLECTOMY, SIGMOID W/SUPERVISING LIBRARIAN; N/A Comment: for colovesicle fistula - Dr. Mosley 04/30/2015: MASTOIDECTOMY; Right Comment: cholesteatoma removed, Dr. Lua 10/2019: PACEMAKER 1974: PART. HYSTERECTOMY W/WO RMVL OVARIES/TUBES Comment: h/o cervical cancer ovaries remain 1996: PAST SURGICAL HISTORY OF Comment: Aortic valve repair, Dr. Apodaca 2001: PAST SURGICAL HISTORY OF Comment: [address] Beltrán, [facility] 2016: PAST SURGICAL HISTORY OF Comment: clipping and coil for brain aneurysm ALLERGIES No Known Allergies Current Outpatient Medications: omeprazole (PRILOSEC) 40 mg capsule amLODIPine (NORVASC) 5 mg tablet lisinopril (ZESTRIL, PRINIVIL) 40 mg tablet metoprolol succinate ER (TOPROL XL) 25 mg 24 hr tablet furosemide (LASIX) 20 mg tablet simvastatin (ZOCOR) 20 mg tablet traZODone (DESYREL) 50 mg tablet rivaroxaban (XARELTO) 20 mg tablet sodium chloride 0.9 %, flush, (BD POSIFLUSH) syringe rivaroxaban (XARELTO) 15 mg tablet mirtazapine (REMERON) 15 mg tablet acetaminophen (TYLENOL) 500 mg tablet Cholecalciferol-Soy Isoflavone 2,000-64 unit-mg tab clotrimazole-betamethasone (LOTRISONE) cream magnesium oxide (MAG-OX) 400 mg (241.3 mg magnesium) tablet blood sugar diagnostic (BLOOD GLUCOSE TEST) test strip UBIDECARENONE (COQ-10 ORAL) FAMILY HISTORY: family history includes Diabetes in her maternal grandmother; Heart Attack in her father; Heart Problems in her mother; cardiovascular disease in her father and mother; myocardial infarction in her mother. No family history of premature coronary artery disease, sudden cardiac , or heart failure. SOCIAL HISTORY: She reports that she quit smoking about 51 years ago. She has never used smokeless tobacco. She reports current alcohol use of about 1.0 standard drink of alcohol per week. She reports that she does not use drugs. REVIEW OF SYSTEMS: Positives In Bold GENERAL: Negative for: Weight loss or gain, Fever or Chills, Weakness and Sleep difficulties. HEENT: Negative for: Headache, Impaired Vision, Glasses, Hearing Impairment, Ringing in Ears, Nosebleeds, Poor dental care, Bleeding Gums, Dentures NECK: Negative for: Swelling, Pain, Stiffness RESPIRATORY: Negative for: Cough, Blood in Sputum, Shortness of breath, Wheezing, Apnea GASTROINTESTINAL: Negative for: Trouble swallowing, Heartburn, Change in bowel habits, Blood in stool, Dark black stools MUSCULOSKELETAL: Negative for: Muscle or joint pain, Stiffness , Joint swelling NEUROLOGIC/PSYCHIATRIC: Negative for: Weakness, Paralysis, Numbness, Tingling, Tremor, Nervousness,Depressed mood, Memory loss SKIN: Negative for: Rashes, Itching HEMATOLOGICAL/LYMPHATIC: Negative for: Easy bruising , Easy bleeding ENDOCRINE: Negative for: Heat or cold intolerance, Excessive sweating, Frequent urination, Frequentthirst PHYSICAL EXAMINATION: BP 133/66 (BP Site: Left Arm) Pulse 95 SpO2 99% General: Well developed, well nourished, looks stated age. Alert and oriented and in no visible distress. HEENT: Face symmetric. Gaze Conjugate. Neck: supple, without thyromegaly. No carotid bruits, 2+ upstrokes bilaterally. No nodes felt in neck. Thyroid no nodules. Lungs: clear without rales, rhonchi or wheezing throughout. Cardiovascular: IRregular rhythm and normal rate, 1/6 systolic murmurs, no extra heart sounds heard. JVP 6 cm H2O, neg HJR. non Carotid bruits bilaterally, +2 radial pulses bilaterally, +2 DP pulses bilaterally. Warm and well perfused. Extremeties: + no Peripheral edema bilaterally . No Clubbing or cyanosis of extremeties. Abdomen: benign without organomegaly. Normal bowel sounds. Non palpable abdominal aorta. Neuro: Memory and judgement intact. Essentially normal neuropyschiatric exam. Pertinent labs reviewed: CARDIOVASCULAR MEDICINE TESTING: ECG 01/09/2022: Afib with PVCs vs aberrancy ECG 07/15/2021: ATRIAL-PACED RHYTHM WITH PROLONGED AV CONDUCTION LEFT VENTRICULAR HYPERTROPHY WITH QRS WIDENING ABNORMAL ECG ECHO 10/08/2020: CONCLUSIONS: - Technically difficult exam due to body habitus. - Exam indication: Routine surveillance of prosthetic valve (>3yrs) - The left ventricle is moderately dilated. Left ventricular systolic function is normal. EF = 58 5% (2D biplane) Indeterminate left ventricular diastolic dysfunction due to mitral valve surgery. - The right ventricle is normal in size. Right ventricular systolic function is low normal. - The left atrial cavity is severely dilated. - There is moderate (2+) mitral valve regurgitation. Regurgitant orifice area (PISA) is 0.15 cm . - [employer] prosthetic aortic valve (size #28). There is mild (1+ - 2+) aortic valve regurgitation. The peak gradient is 36 mmHg, the mean gradient is 19 mmHg and the dimensionless valve index is 0.32. - Estimated right ventricular systolic pressure is 70 mmHg consistent with moderately severe pulmonary hypertension. Estimated right atrial pressure is 8 mmHg based on IVC assessment. OSH HOLTER MONITOR 08/10/2019: Atrial Flutter occurred continuously (100% burden), ranging from 49-138 bpm (avg of 84 bpm). QRS morphology changes were present throughout recording. Isolated VEs were rare (<1.0%), and no VE Couplets or VE Triplets were present. ABLATION 03/22/2019: BASELINE 1. Clinical arrhythmia procedure outcome: successful 2. The [employer]: JENNIFER/NAVX mapping system was utilized. 3. Supraventricular arrhythmias - Atrial fibrillation. OSH US ABD AORTA 12/27/2018: IMPRESSION Technically difficult exam due to bowel gas and calcified arteries. AORTA No evidence of abdominal aortic aneurysm. Normal aortic diameter . Aorta plaque noted without evidence of hemodynamically significant stenosis . RIGHT VESSELS Common iliac artery patent without evidence of aneurysm . Common iliac artery plaque noted without evidence of hemodynamically significant stenosis . External iliac artery plaque noted without evidence of hemodynamically significant stenosis . LEFT VESSELS Common iliac artery patent without evidence of aneurysm . Common iliac artery 50-99% stenosis at proximal. External iliac artery plaque noted without evidence of hemodynamically significant stenosis . OSH CT SCAN 02/25/2021: LABS: Component Latest Ref Rng & Units 12/15/2021 12/26/2021 12/29/2021 WBC 3.70 - 11.00 k/uL 9.78 10.54 9.06 RBC 3.90 - 5.20 m/uL 3.81 (L) 3.30 (L) 3.19 (L) Hemoglobin 11.5 - 15.5 g/dL 9.3 (L) 8.1 (L) 7.7 (L) Hematocrit 36.0 - 46.0 % 31.0 (L) 28.2 (L) 25.6 (L) MCV 80.0 - 100.0 fL 81.4 85.5 80.3 MCH 26.0 - 34.0 pg 24.4 (L) 24.5 (L) 24.1 (L) MCHC 30.5 - 36.0 g/dL 30.0 (L) 28.7 (L) 30.1 (L) RDW-CV 11.5 - 15.0 % 15.7 (H) 16.8 (H) 16.2 (H) Platelet Count 150 - 400 k/uL 273 248 210 MPV 9.0 - 12.7 fL 10.0 10.3 10.3 Neut% % 63.0 Abs Neut (ANC) 1.45 - 7.50 k/uL 5.71 Lymph% % 20.1 Abs Lymph 1.00 - 4.00 k/uL 1.82 Poinsett% % 14.0 Abs [place]ett <0.87 k/uL 1.27 (H) Eosin% % 1.9 Abs Eosin <0.46 k/uL 0.17 Baso% % 0.6 Abs Baso <0.11 k/uL 0.05 Immature Gran % % 0.4 IMMATURE GRANS (ABS) <0.10 k/uL 0.04 NRBC /100 WBC 0.0 Absolute nRBC <0.01 k/uL <0.01 <0.01 <0.01 DTYPE Auto Cholesterol, Total <200 mg/dL 121 Triglyceride <150 mg/dL 93 HDL Cholesterol >39 mg/dL 43 Non HDL Cholesterol <130 mg/dL 78 Fasting Time hrs 12 VLDL Cholesterol <30 mg/dL 19 TC:HDL Ratio <5.10 2.81 LDL Cholesterol <100 mg/dL 59 LDL:HDL Ratio <2.54 1.37 Iron 41 - 186 ug/dL 15 (L) TIBC 232 - 386 ug/dL 413 (H) Transferrin Saturation 15.0 - 57.0 % 3.6 (L) I have personally reviewed the Electrocardiogram, Laboratory Testing and Echocardiogram. IMPRESSION and PLAN: Ms. Sanches is a 76 year old woman with a history of remote aortic valve replacement with homograft in 1996 and possible repair of the ascending aorta, hypertension, dyslipidemia, brain aneurysm s/pcoiling (2016), SSS s/p PPM 10/21/20, GI bleed, and symptomatic, persistent, drug refractory atrial f ibrillation s/p PVI 2019 referred for shared decision making for Watchman. Overall, Berta Sanches is stable. There is no evidence of active ischemia, decompensated heart failure, or malignant arrhythmias and she appears euvolemic on exam. ECG with Afib. She has had anemia with GI bleeding requiring transfusions of unclear etiology while on Xarelto. Unknown etiology. Her [id number] is elevated at 7 portenidng an increased risk of CVA and her HASBLED score is elevated. It is reasonable to consider Watchman procedure as after undergoing a LAXMI closure procedure, she will not need watermaster anticoagulation which eliminates anticoagulation side effects and major bleeding risk. After today's visit with Mrs. Sanches, which was dedicated solely for shared decision making visitregarding LAXMI closure device, she decided to proceed with the LAXMI appendage closure procedure scheduled to be done in the near future at [facility]. Of note, she should continue with her GI work up and consider hematology work up if GI work up remains negative, will defer to her PCP. Follow up with Dr. Wyatt for pulmonary hypertension. She would benefit from risk factor modification in the form of BP/lipid/glycemic/weight control in addition to mngt of her cardiac issues and I will defer to her primary cardiology Dr. Wyatt further mngt. I am not making a follow up visit but am happy to see her as needed. The patient and her son were in agreement with the plan. As always, I appreciate the opportunity to participate in the care of your patients, and look forward to collaborating with you further. Please don't hesitate to contact me if any questions or problems arise. With best wishes and warmest personal regards, Emilia Diallo MD January 09, 2022, 5:59 PM documented in this encounterLakehealth [facility]07-[facility] History and physical note * Chai Encinas MD - 01/02/2022 10:19 AM EDT UPDATED PROCEDURAL SEDATION HISTORY AND PHYSICAL EXAMINATION SERVICE DATE: 01/02/2022 SERVICE TIME: 10:21 AM PHYSICAL EXAM MUST BE COMPLETED ON ADMISSION PROCEDURE: Procedure Indications: The History and Physical (completed in the past 30 days) has been reviewed and the patient has beenexamined. The contents accurately reflect the patient's condition with the following additions or revisions since the H&P was completed. ASA Class: ASA Class:: Patient with severe systemic disease that is a constant threat to life Examination indicates no changes. AIRWAY: Airway Visualization of Uvula: Yes Mouth opening greater than 2 fingerbreadths: Yes Neck Full Range of Motion: Yes LUNGS: Lungs clear to auscultation CARDIAC: Regular rhythm,Regular rate Provisional Diagnosis/Treatment Plan: anemia, heme positive stools, history of duodenal ulcer - EGD SEDATION GOAL: Moderate This H&P can be found in the attached. SIGNATURE: Chai Encinas MD PATIENT NAME: Berta Sanches DATE: January 02, 2022 TIME: 10:21 AM * Chai Encinas MD - 01/02/2022 10:00 AM EDT Images from the original note were not included. HISTORY AND PHYSICAL Berta Sanches 1945 REFERRING PHYSICIAN: Doreen Le PA-C CHIEF COMPLAINT: Consult (blood in stool, anemia) HPI: The patient is a 76 year old female referred for endoscopy. The patient was noting fatigue. She underwent a CBC with demonstrated a hemoglobin 7.7 and heme positive stools. She is currently on Xarelto which she needs to stay on because she is scheduled on January 12 for a watchman procedure for her atrial enlargement with dilated cardiomyopathy. Berta is a patient well-known to me. Berta notes a recent history of epigastric pain and black stools. The patient noted epigastric pain and was noting seeing dark stools. She was also noting that she was fatigued. She was scheduled to have a cholecystectomy due to what was felt to be a history of pancreatitis and likely gallbladder issues. When she presented to [facility] department on February 13, 2018 she was found of a hemoglobin of 7.5. Is maintained on Xarelto due to a history of atrial fibrillation, pulmonary hypertension, aortic valve replacement, and pacemaker placement due to sick sinus syndrome. Right upper quadrant ultrasound was performed which demonstrated no specific abnormalities. CT scan demonstrated a hiatal hernia with questionable gastric thickening and no other significant CT scan findings. 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 This mass is being followed in the clinic is noted to be stable. The patient was transfused 2 units of packed red cells. She noted improvement in her fatigue and was discharged. He was restarted on proton pump inhibitor and noted no further black stools and notes resolution of her epigastric pain Berta has undergone prior endoscopy. She underwent upper and lower endoscopy at [facility] also for anemia on October 26, [address] Drummond. She was found to have erosive gastritis. 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 The patient is being seen by me at the request of Doreen Le PA-C for my opinion and advice regarding anemia likely upper GI origin. I performed upper endoscopy on February 28, 2021. The patient was found to have what appeared to be healing duodenal ulcer and no other significant abnormalities. Pathology demonstrated: FINAL DIAGNOSIS Stomach, antrum, biopsy - Chronic antral gastritis with focal intestinal metaplasia. - Immunohistochemistry for Helicobacter pylori is negative. Since that procedure, the patient is noting progressive fatigue. She had a follow-up CBC which demonstrated a hemoglobin of 7.5-lower than she had endoscopy earlier and had still heme positive stools. Edmund Le referred the patient back to me for consideration of follow-up upper endoscopy given her persistent anemia fatigue and heme positive stools. We discussed repeat upper endoscopy which she declined at that time. PAST MEDICAL HISTORY PAST MEDICAL HISTORY Diagnosis Date Abnormal colonoscopy [...] surgical removal Chronic mastoiditis of left side Diabetes (HCC) Diabetes (HCC) GERD (gastroesophageal reflux disease) H/O: GI bleed High blood pressure Hypercholesterolemia Mastoiditis of right side s/p mastoidectomy, complete opacitificationright tympanic cavity and mastoid cells on CT 06/01/16 Mitral valve regurgitation Pacemaker 10/21/[address] TRELL VERNON [id number] pulse generator, his bundle lead, right atrial lead Peripheral arterial disease (HCC) Rheumatic fever Steatosis, liver 03/26/2014 fatty liver on US. No gallstones Tachy-pavan syndrome (HCC) PAST SURGICAL HISTORY PAST SURGICAL HISTORY Procedure Laterality Date ABLATION 2018 for afib ANESTHESIA EXTERNAL MIDDLE & INNER EAR W/BX NOS 2003, 2004,04/30/15 CARDIOVERSION 2018 EGD 02/28/2021 ESOPHAGOGASTRODUODENOSCOPY TRANSORAL DIAGNOSTIC 02/28/2021 LAP COLECTOMY, SIGMOID W/SUPERVISING LIBRARIAN 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 Lua PACEMAKER 10/2019 PART. HYSTERECTOMY W/WO RMVL OVARIES/TUBES 1974 h/o cervical cancer ovaries remain PAST SURGICAL HISTORY OF 1996 Aortic valve repair, Dr. Apodaca PAST SURGICAL HISTORY OF 2001 [address] Beltrán, [facility] PAST SURGICAL HISTORY OF 2015 clipping and coil for brain aneurysm CURRENT MEDICATIONS Current Outpatient Medications Medication Sig omeprazole (PRILOSEC) 40 mg capsule Take 1 capsule by mouth once daily. amLODIPine (NORVASC) 5 mg tablet Take 1 tablet by mouth twice daily. lisinopril (ZESTRIL, PRINIVIL) 40 mg tablet Take 1 tablet by mouth once daily. metoprolol succinate ER (TOPROL XL) 25 mg 24 hr tablet Take 1 tablet by mouth once daily. furosemide (LASIX) 20 mg tablet Take 1 tablet by mouth once daily. simvastatin (ZOCOR) 20 mg tablet Take 1 tablet by mouth daily at bedtime. traZODone (DESYREL) 50 mg tablet Take 1 tablet by mouth daily at bedtime. rivaroxaban (XARELTO) 20 mg tablet Take 1 tablet by mouth once daily. sodium chloride 0.9 %, flush, (BD POSIFLUSH) syringe Inject 2-10 mL intravenously as directed. For Echo procedure rivaroxaban (XARELTO) 15 mg tablet Take 1 tablet by mouth daily with dinner. mirtazapine (REMERON) 15 mg tablet Take 1 tablet by mouth daily at bedtime. (Patient taking differently: Take 15 mg by mouth at bedtime as needed. ) acetaminophen (TYLENOL) 500 mg tablet Take 1-2 tablets by mouth every 6 hours as needed. Cholecalciferol-Soy Isoflavone 2,000-64 unit-mg tab Take 1 capsule by mouth once daily. clotrimazole-betamethasone (LOTRISONE) cream Apply 1 application to affected area twice daily. UNTIL CLEAR FOR UP TO 2-3 WEEKS magnesium oxide (MAG-OX) 400 mg (241.3 mg magnesium) tablet Take 1 tablet by mouth twice daily for 10 days. (Patient taking differently: Take 400 mg by mouth once daily. ) blood sugar diagnostic (BLOOD GLUCOSE TEST) test strip Test blood sugar(s) 2 times daily. Dx: Type 2 DM - Controlled E11.9 Insulin: No UBIDECARENONE (COQ-10 ORAL) Take 1 capsule by mouth once daily. No current facility-administered medications for this visit. ALLERGIES: Patient has no known allergies. PERSONAL HISTORY: SOCIAL HISTORY Social History Tobacco Use Smoking status: Former Smoker Quit date: 02/11/1970 Years since quittin.9 Smokeless tobacco: Never Used Vaping Use Vaping Use: Never used Substance Use Topics Alcohol use: Yes Alcohol/week: 1.0 standard drink Types: 1 Glasses of Wine (5oz) per week Comment: red wine 2-3 times a week- occasional Drug use: No FAMILY HISTORY: FAMILY HISTORY FAMILY HISTORY Problem Relation Age of Onset other (Heart Problems) Mother other (myocardial infarction) Mother other (cardiovascular disease) Mother other (Heart Attack) Father other (cardiovascular disease) Father Diabetes Maternal Grandmother REVIEW OF SYMPTOMS: The review of systems data was entered by the nurse and reviewed by wv Nursing Notes: Stacie Mancera LPN 01/01/2022 9:48 AM Signed REVIEW OF SYSTEMS: General: The patient notes fatigue, denies weight loss, denies weight gain, denies feeling hot, andnotes feelings of cold. Eyes: The patient denies glaucoma, denies eye injury/surgery, wears glasses or contacts. Ear/Nose/Throat: The patient denies allergies, denies hayfever, notes ear infections, and notes bloody noses. Cardiovascular: The patient denies chest pain, notes heart disease, notes high blood pressure,denies cardiac stent, denies prior heart attack, denies irregular heart beat, denies high cholesterol, denies poor circulation, denies heart failure, other cardiac issues, notes claudication, denies cold feet, denies peripheral arterial stent. Respiratory: The patient denies tuberculosis, denies pneumonia, denies frequent cough, denies pulmonary embolism, denies shortness of breath, and denies coughing up blood. Gastrointestinal: The patient denies difficulty swallowing, denies acid reflux, notes ulcers, denies vomiting, denies jaundice/hepatitis, denies gallbladder problems, denies black or tarry stools, denies hemorrhoids, denies bleeding from rectum, denies diverticulitis, denies constipation, denies diarrhea, denies loss of stool control, and denies hernias. Kidney/Bladder: The patient denies kidney stones, denies urine infections, and denies bloody urine. Skin: The patient denies a history of skin cancer, denies bleeding/changing moles, and denies a history of skin rash. Neurologic: The patient denies a history of epilepsy/convulsions, denies headaches, denies head/spinal injuries, and denies stroke/TIA. Psychiatric: The patient denies psychiatric medications, denies depression, and denies voices, denies substance abuse. Endocrine: The patient denies thyroid disorders, denies diabetes, and denies hormonal problems. Hematologic: The patient denies a history of bruising, denies bleeding, and notes anemia, denies blood clots. Infections: The patient denies a history of measles and mumps, notes rheumatic fever, and denies sexually transmitted diseases. Musculoskeletal: The patient denies back pain/injury, denies back problems, denies sciatica, deniesknee/foot trouble, denies arthritis, or denies gout. When was patient's last Mammogram screening? 2018 Last Colonoscopy: 2019 Stacie Mancera LPN PHYSICAL EXAMINATION: General: The patient is 76 year old female, well nourished, well hydrated in no acute distress. Thepatient is oriented to time, place, and person. VITALS: Blood pressure 122/52, pulse 100, temperature 36.1 C (97 F), height 160 cm (5' 3"), weight 65.8 kg (145 lb), SpO2 98 %. Body mass index is 25.69 kg/m . HEENT: Normal cephalic, ataumatic, pupils are equally round, sclera are anicteric, mucous membranesare moist, oropharynx is clear. Neck has no masses, asymmetry or lymphadenopathy. Thyroid is unremarkable. Respiratory: Clear to auscultation and percussion. Normal respiratory excursion and pattern. Cardiac: Examination is regular rate and rhythm. Abdominal exam: Soft, nontender, with no palpable masses. No hepatosplenomegaly. No palpable hernias. Rectal exam: exam deferred Extremities: no clubbing, cyanosis or edema. No adenopathy. Other: LABORATORY VALUES: As Noted RADIOLOGIC STUDIES: As Noted Assessment IMPRESSION: Anemia, heme positive stools, history of duodenal ulcer, on anticoagulation, plan for cardiac procedure on January 12 need to verify no active upper GI source PLAN: I plan to perform upper endoscopy. We discussed the risks and benefits of the planned endoscopy. I have informed the patient that complications can occur including failure to complete the endoscopy and perforation. The patient had the opportunity to ask questions concerning the planned endoscopy. My staff has also explained the procedure to the patient in understandable terms and has given the patient printed material concerning the procedure. The patient freely consents to surgery. I have scheduled her for urgent upper endoscopy tomorrow in [place]. Diagnoses: (D50.0) Anemia, blood loss (primary encounter diagnosis) (D62) Acute blood loss anemia (R19.5) Heme + stool (K82.8) Sludge in gallbladder (R10.13) Epigastric pain (K26.4) Duodenal ulcer with hemorrhage My findings have been communicated to Doreen Le PA-C via shared medical record. This note will be forwarded to Doreen Le PA-C. Return to Clinic: The patient is instructed to follow-up with me as needed. Chai Encinas MD documented in this encounterL[facility]06-[facility]22 Miscellaneous Notes* Telephone Encounter - Yessenia Monroe - 01/01/2022 10:27 AM EDT 01-02-2022 egd weld documented in this encounterLakehealth [facility]06-30-2022 History of Present illness Narrative* Chai Encinas MD - 01/01/2022 9:52 AM EDT HISTORY AND PHYSICAL Berta Sanches 1945 REFERRING PHYSICIAN: Doreen Le PA-C CHIEF COMPLAINT: Consult (blood in stool, anemia) HPI: The patient is a 76 year old female referred for endoscopy. The patient was noting fatigue. She underwent a CBC with demonstrated a hemoglobin 7.7 and heme positive stools. She is currently on Xarelto which she needs to stay on because she is scheduled on January 12 for a watchman procedure for her atrial enlargement with dilated cardiomyopathy. Berta is a patient well-known to me. Berta notes a recent history of epigastric pain and black stools. The patient noted epigastric pain and was noting seeing dark stools. She was also noting that she was fatigued. She was scheduled to have a cholecystectomy due to what was felt to be a history of pancreatitis and likely gallbladder issues. When she presented to [facility] department on February 13, 2018 she was found of a hemoglobin of 7.5. Is maintained on Xarelto due to a history of atrial fibrillation, pulmonary hypertension, aortic valve replacement, and pacemaker placement due to sick sinus syndrome. Right upper quadrant ultrasound was performed which demonstrated no specific abnormalities. CT scan demonstrated a hiatal hernia with questionable gastric thickening and no other significant CT scan findings. 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 This mass is being followed in the clinic is noted to be stable. The patient was transfused 2 units of packed red cells. She noted improvement in her fatigue and was discharged. He was restarted on proton pump inhibitor and noted no further black stools and notes resolution of her epigastric pain Berta has undergone prior endoscopy. She underwent upper and lower endoscopy at [facility] also for anemia on October 26, [address] Drummond. She was found to have erosive gastritis. 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 The patient is being seen by me at the request of Doreen Le PA-C for my opinion and advice regarding anemia likely upper GI origin. I performed upper endoscopy on February 28, 2021. The patient was found to have what appeared to be healing duodenal ulcer and no other significant abnormalities. Pathology demonstrated: FINAL DIAGNOSIS Stomach, antrum, biopsy - Chronic antral gastritis with focal intestinal metaplasia. - Immunohistochemistry for Helicobacter pylori is negative. Since that procedure, the patient is noting progressive fatigue. She had a follow-up CBC which demonstrated a hemoglobin of 7.5-lower than she had endoscopy earlier and had still heme positive stools. Edmund Le referred the patient back to me for consideration of follow-up upper endoscopy given her persistent anemia fatigue and heme positive stools. We discussed repeat upper endoscopy which she declined at that time. PAST MEDICAL HISTORY Diagnosis Date Abnormal colonoscopy [...] surgical removal Chronic mastoiditis of left side Diabetes (HCC) Diabetes (HCC) GERD (gastroesophageal reflux disease) H/O: GI bleed High blood pressure Hypercholesterolemia Mastoiditis of right side s/p mastoidectomy, complete opacitificationright tympanic cavity and mastoid cells on CT 06/01/16 Mitral valve regurgitation Pacemaker 10/21/[address] [address] TRELL VERNON [id number] pulse generator, his bundle lead, right atrial lead Peripheral arterial disease (HCC) Rheumatic fever Steatosis, liver 03/26/2014 fatty liver on US. 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 Lua PACEMAKER 10/2019 PART. HYSTERECTOMY W/WO RMVL OVARIES/TUBES 1974 h/o cervical cancer ovaries remain PAST SURGICAL HISTORY OF 1996 Aortic valve repair, Dr. Apodaca PAST SURGICAL HISTORY OF 2001 [address] Beltrán, [facility] PAST SURGICAL HISTORY OF 2016 clipping and coil for brain aneurysm Current Outpatient Medications Medication Sig omeprazole (PRILOSEC) 40 mg capsule Take 1 capsule by mouth once daily. amLODIPine (NORVASC) 5 mg tablet Take 1 tablet by mouth twice daily. lisinopril (ZESTRIL, PRINIVIL) 40 mg tablet Take 1 tablet by mouth once daily. metoprolol succinate ER (TOPROL XL) 25 mg 24 hr tablet Take 1 tablet by mouth once daily. furosemide (LASIX) 20 mg tablet Take 1 tablet by mouth once daily. simvastatin (ZOCOR) 20 mg tablet Take 1 tablet by mouth daily at bedtime. traZODone (DESYREL) 50 mg tablet Take 1 tablet by mouth daily at bedtime. rivaroxaban (XARELTO) 20 mg tablet Take 1 tablet by mouth once daily. sodium chloride 0.9 %, flush, (BD POSIFLUSH) syringe Inject 2-10 mL intravenously as directed. For Echo procedure rivaroxaban (XARELTO) 15 mg tablet Take 1 tablet by mouth daily with dinner. mirtazapine (REMERON) 15 mg tablet Take 1 tablet by mouth daily at bedtime. (Patient taking differently: Take 15 mg by mouth at bedtime as needed. ) acetaminophen (TYLENOL) 500 mg tablet Take 1-2 tablets by mouth every 6 hours as needed. Cholecalciferol-Soy Isoflavone 2,000-64 unit-mg tab Take 1 capsule by mouth once daily. clotrimazole-betamethasone (LOTRISONE) cream Apply 1 application to affected area twice daily. UNTIL CLEAR FOR UP TO 2-3 WEEKS magnesium oxide (MAG-OX) 400 mg (241.3 mg magnesium) tablet Take 1 tablet by mouth twice daily for 10 days. (Patient taking differently: Take 400 mg by mouth once daily. ) blood sugar diagnostic (BLOOD GLUCOSE TEST) test strip Test blood sugar(s) 2 times daily. Dx: Type 2 DM - Controlled E11.9 Insulin: No UBIDECARENONE (COQ-10 ORAL) Take 1 capsule by mouth once daily. No current facility-administered medications for this visit. ALLERGIES: Patient has no known allergies. PERSONAL HISTORY: Social History Tobacco Use Smoking status: Former Smoker Quit date: 02/11/1970 Years since quittin.9 Smokeless tobacco: Never Used Vaping Use Vaping Use: Never used Substance Use Topics Alcohol use: Yes Alcohol/week: 1.0 standard drink Types: 1 Glasses of Wine (5oz) per week Comment: red wine 2-3 times a week- occasional Drug use: No FAMILY HISTORY: FAMILY HISTORY Problem Relation Age of Onset other (Heart Problems) Mother other (myocardial infarction) Mother other (cardiovascular disease) Mother other (Heart Attack) Father other (cardiovascular disease) Father Diabetes Maternal Grandmother REVIEW OF SYMPTOMS: The review of systems data was entered by the nurse and reviewed by wv Nursing Notes: Stacie Mancera LPN 01/01/2022 9:48 AM Signed REVIEW OF SYSTEMS: General: The patient notes fatigue, denies weight loss, denies weight gain, denies feeling hot, andnotes feelings of cold. Eyes: The patient denies glaucoma, denies eye injury/surgery, wears glasses or contacts. Ear/Nose/Throat: The patient denies allergies, denies hayfever, notes ear infections, and notes bloody noses. Cardiovascular: The patient denies chest pain, notes heart disease, notes high blood pressure,denies cardiac stent, denies prior heart attack, denies irregular heart beat, denies high cholesterol, denies poor circulation, denies heart failure, other cardiac issues, notes claudication, denies cold feet, denies peripheral arterial stent. Respiratory: The patient denies tuberculosis, denies pneumonia, denies frequent cough, denies pulmonary embolism, denies shortness of breath, and denies coughing up blood. Gastrointestinal: The patient denies difficulty swallowing, denies acid reflux, notes ulcers, denies vomiting, denies jaundice/hepatitis, denies gallbladder problems, denies black or tarry stools, denies hemorrhoids, denies bleeding from rectum, denies diverticulitis, denies constipation, denies diarrhea, denies loss of stool control, and denies hernias. Kidney/Bladder: The patient denies kidney stones, denies urine infections, and denies bloody urine. Skin: The patient denies a history of skin cancer, denies bleeding/changing moles, and denies a history of skin rash. Neurologic: The patient denies a history of epilepsy/convulsions, denies headaches, denies head/spinal injuries, and denies stroke/TIA. Psychiatric: The patient denies psychiatric medications, denies depression, and denies voices, denies substance abuse. Endocrine: The patient denies thyroid disorders, denies diabetes, and denies hormonal problems. Hematologic: The patient denies a history of bruising, denies bleeding, and notes anemia, denies blood clots. Infections: The patient denies a history of measles and mumps, notes rheumatic fever, and denies sexually transmitted diseases. Musculoskeletal: The patient denies back pain/injury, denies back problems, denies sciatica, deniesknee/foot trouble, denies arthritis, or denies gout. When was patient's last Mammogram screening? 2018 Last Colonoscopy: 2019 Stacie Mancera LPN PHYSICAL EXAMINATION: General: The patient is 76 year old female, well nourished, well hydrated in no acute distress. Thepatient is oriented to time, place, and person. VITALS: Blood pressure 122/52, pulse 100, temperature 36.1 C (97 F), height 160 cm (5' 3"), weight 65.8 kg (145 lb), SpO2 98 %. Body mass index is 25.69 kg/m . HEENT: Normal cephalic, ataumatic, pupils are equally round, sclera are anicteric, mucous membranesare moist, oropharynx is clear. Neck has no masses, asymmetry or lymphadenopathy. Thyroid is unremarkable. Respiratory: Clear to auscultation and percussion. Normal respiratory excursion and pattern. Cardiac: Examination is regular rate and rhythm. Abdominal exam: Soft, nontender, with no palpable masses. No hepatosplenomegaly. No palpable hernias. Rectal exam: exam deferred Extremities: no clubbing, cyanosis or edema. No adenopathy. Other: LABORATORY VALUES: As Noted RADIOLOGIC STUDIES: As Noted Assessment IMPRESSION: Anemia, heme positive stools, history of duodenal ulcer, on anticoagulation, plan for cardiac procedure on January 12 need to verify no active upper GI source PLAN: I plan to perform upper endoscopy. We discussed the risks and benefits of the planned endoscopy. I have informed the patient that complications can occur including failure to complete the endoscopy and perforation. The patient had the opportunity to ask questions concerning the planned endoscopy. My staff has also explained the procedure to the patient in understandable terms and has given the patient printed material concerning the procedure. The patient freely consents to surgery. I have scheduled her for urgent upper endoscopy tomorrow in [place]. Diagnoses: (D50.0) Anemia, blood loss (primary encounter diagnosis) (D62) Acute blood loss anemia (R19.5) Heme + stool (K82.8) Sludge in gallbladder (R10.13) Epigastric pain (K26.4) Duodenal ulcer with hemorrhage My findings have been communicated to Doreen Le PA-C via shared medical record. This note will be forwarded to Doreen Le PA-C. Return to Clinic: The patient is instructed to follow-up with me as needed. Chai Encinas MD documented in this encounterL[facility] Nurse Note* Stacie Mancera LPN - 01/01/2022 9:46 AM EDT REVIEW OF SYSTEMS: General: The patient notes fatigue, denies weight loss, denies weight gain, denies feeling hot, andnotes feelings of cold. Eyes: The patient denies glaucoma, denies eye injury/surgery, wears glasses or contacts. Ear/Nose/Throat: The patient denies allergies, denies hayfever, notes ear infections, and notes bloody noses. Cardiovascular: The patient denies chest pain, notes heart disease, notes high blood pressure,denies cardiac stent, denies prior heart attack, denies irregular heart beat, denies high cholesterol, denies poor circulation, denies heart failure, other cardiac issues, notes claudication, denies cold feet, denies peripheral arterial stent. Respiratory: The patient denies tuberculosis, denies pneumonia, denies frequent cough, denies pulmonary embolism, denies shortness of breath, and denies coughing up blood. Gastrointestinal: The patient denies difficulty swallowing, denies acid reflux, notes ulcers, denies vomiting, denies jaundice/hepatitis, denies gallbladder problems, denies black or tarry stools, denies hemorrhoids, denies bleeding from rectum, denies diverticulitis, denies constipation, denies diarrhea, denies loss of stool control, and denies hernias. Kidney/Bladder: The patient denies kidney stones, denies urine infections, and denies bloody urine. Skin: The patient denies a history of skin cancer, denies bleeding/changing moles, and denies a history of skin rash. Neurologic: The patient denies a history of epilepsy/convulsions, denies headaches, denies head/spinal injuries, and denies stroke/TIA. Psychiatric: The patient denies psychiatric medications, denies depression, and denies voices, denies substance abuse. Endocrine: The patient denies thyroid disorders, denies diabetes, and denies hormonal problems. Hematologic: The patient denies a history of bruising, denies bleeding, and notes anemia, denies blood clots. Infections: The patient denies a history of measles and mumps, notes rheumatic fever, and denies sexually transmitted diseases. Musculoskeletal: The patient denies back pain/injury, denies back problems, denies sciatica, deniesknee/foot trouble, denies arthritis, or denies gout. When was patient's last Mammogram screening? 2018 Last Colonoscopy: 2019 Stacie Mancera LPN documented in this encounterL[facility]06-27-[facility]22 Miscellaneous Notes* Telephone Encounter - Doreen Le PA-C - 12/29/2021 4:19 PM EDT Thanks for the help! Doreen Le PA-C * Telephone Encounter - Sheree Savage Ma - 12/29/2021 3:57 PM EDT Patient is scheduled for for transfusion of 2 units packed red blood cells at [facility] for 8 am tomorrow. Patient has been notified and will stop by tonight to get type and cross. documented in this encounterLake[facility]06-25-2022 Miscellaneous Notes* Telephone Encounter - Sheree Savage Ma - 12/27/2021 10:21 AM EDT Pt made aware and will recheck labs on Wednesday * Telephone Encounter - Mars Hernandez MD - 12/27/2021 10:10 AM EDT Noted. Can we have her recheck labs on Wednesday. Call if any bloody or black stools, shortness of breath or chest pain. * Telephone Encounter - Radha Pyle RN - 12/27/2021 9:51 AM EDT Patient called to triage [facility] message. Patient reports feeling much better today and main symptom is fatigue but mild compared to what it has been. Nurse triage completed. Protocol recommends see provider within 3 days. Patient declines d/t appointment scheduled with Dr. Encinas 01/01 and feeling better. Care advice reviewed as well as red flag symptoms to report to ED for. Patient reports that if she starts feeling like she had the past couple of days she will go to [facility] ED. Reason for Disposition [1] MILD weakness (i.e., does not interfere with ability to work, go to school, normal activities) AND [2] persists > 1 week Answer Assessment - Initial Assessment Questions 1. DESCRIPTION: Patient reports fatigued and weakness for past several days but today is feeling much better. 2. SEVERITY: - MILD - Feels weak or tired, but does not interfere with work, school or normal activities 3. ONSET: Several days ago. 4. CAUSE: Low hemoglobin but I know I am not to the level of needing a blood transfusion. 5. MEDICINES: Increase in Xarelto 6. OTHER SYMPTOMS: "Do you have any other symptoms?" (e.g., chest pain, fever, cough, SOB, vomiting, diarrhea, bleeding, other areas of pain) No chest pain, fever ,cough, SOB, vomiting. No diarrhea since yesterday. No nausea since yesterday. Protocols used: WEAKNESS (GENERALIZED) AND [id number] documented in this encounterLake[facility]06-25-2022 Miscellaneous Notes* Telephone Encounter - Radha Pyle RN - 12/27/2021 9:57 AM EDT Triage completed 12/27 for MC symptoms. See triage encounter. Radha Pyle RN documented in this encounterLake[facility]06-23-2022 Miscellaneous Notes* Telephone Encounter - Marleen Schaffer RN - 12/25/2021 3:46 PM EDT Spoke to patient. She reports she began the increased Xarelto (20 mg daily) on 12/22/21 as planned. She reports she has had diarrhea and mild stomach ache since. She reports black tarry stool once today- but not prior. Advised patient to be evaluated at ED or Urgent Care or by her PCP right away. Will review with Dr Swan. Marleen Schaffer RN * Telephone Encounter - Deonna Bryant - 12/25/2021 3:22 PM EDT December 25, 2021 Patient Contact Number: [phone] (home) [phone] (cell) Patient last seen within the last year: Yes Reason for Call: Medication Issue/Question: Patient states that she is supposed to decrease medication in preparation of surgery in two weeks, but she is having symptoms and is having difficulty tolorating. Thank you, Marisol Page documented in this encounterLake[facility]06-20-2022 Miscellaneous Notes* Telephone Encounter - Brittany Norton - 12/22/2021 11:01 AM EDTSummary: Appointment Scheduled PT on 01/01/22 at 9:40 am, with Huang for a consult. * Telephone Encounter - Sigifredo Rivera LPN - 12/22/2021 10:11 AM EDT TC to pt, notified of results/provider response. Pt verbalized understanding. Schedulers please assist pt with scheduling appt with Dr. Sandy FITZGERALD. Sigifredo Rivera LPN * Telephone Encounter - Doreen Le PA-C - 12/19/2021 5:12 PM EDT Please advise stool is positive for blood. Recheck CBC next week. Consult Dr. Delgado (active consult) again regarding anemia with heme positive stool, need for endoscopy. Patient is to have watchman procedure 01/12/2022 so we will need schedules to follow. documented in this encounterLake[facility]06-13-2022 History of Present illness Narrative* Marisol Cook, RT(R) - 12/15/2021 11:00 AM EDT Radiology Service Progress Note PATIENT NAME: Berta Sanches DATE OF SERVICE: December 15, 2021 TIME: 11:04 AM PATIENT IDENTITY VERIFICATION COMPLETED USING TWO (2) IDENTIFIERS: Name and Date of confirmedby patient verbally. FALL SCREENING: Has the patient had 2 falls in the last year or 1 fall with injury or currently using an Ambulatory Assistive Device (Walker, Cane, Wheelchair, Crutches, etc.)? No PATIENT GENDER DATA: Female. status: : No status: NO. PATIENT RELEVANT IMPLANT DATA REVIEWED: Yes RADIOLOGY DEPARTMENT: General X-ray: Exam(s) Completed: Pelvis X-Ray: Pelvis with Hip Left PERIPHERAL IV DATA: Not applicable SIGNED BY: RT Mario(R) December 15, 2021 11:04 AM documented in this encounterLakehealth [facility]06-13-2022 History of Present illness Narrative* M Claudia Le PA-C - 12/15/2021 9:00 AM EDT 76 year old female with c/o Multiple concerns: Pain in left hip/ left buttock: Started about 2 weeks, hard to ride in car, very painful. Hurts to bend over. Extremely tired all the time Persistent leg pain bilateral, especially around calves. Has to stop and rest. No problems in [place] Jul, Aug. Needs Covid booster #1 History of pulmonary embolism Primary hypertension Hyperlipidemia with target ldl less than 70 Dilated cardiomyopathy (hcc) Sss (sick sinus syndrome) (hcc) Chronic diastolic congestive heart failure (hcc) Ascending aorta dilatation (hcc) Pedro aneurysm of anterior communicating artery Bilateral carotid artery stenosis PAD Chronic anticoagulation Cardiovascular interval hx: AF 100%, total V pcing 19.5% 12/11/2021 pacemaker interrogated 11/26/2021 PVR bilateral: Compared to prior study of 04/25/2021, increase in bilateral ankle brachial index (previously 0.34 R, 0.50 L) and right toe brachial index (previously 0.17). Decrease in lefttoe brachial index (previously 0.38) and bilateral inflow resting waveforms. 11/26/2021 f/u vascular HIM MANAGER Na Ramirez 10/24/2018 US carotids: RIGHT: CCA plaques w/o significant hemodynamic stenosis, ICA 20-39%, VA patent w/antegrade. LEFT: CCA plaque w/o significant hemodynamic stenosis, SLC04-10%%, VA patent w/antegrade, SA clear 12/02/2017 MRI/ MRA brain:Endovascular coil mass involving the anterior communicating artery. No evidence of residual filling, aneurysm recurrence or coil impaction. Patent intracranial circulation. No evidence of aneurysm, occlusion, high-grade intracranial stenosis. Current meds: Xarelto 20mg daily Amlodipine 5mg daily Metoprolol succinate ER I tab daily Lisinopril 40mg daily Simvastatin 20mg daily HS ubidecarenone I cap daily Use of NTG: No Chest pain, arm, jaw pain, neck, or upper back pain suggestive of angina: No. SOB: a little Dyspnea with exertion: Yes orthopnea: No racing or irregular heartbeats: No palpitations: No syncopal sx: No Unexplainable fatigue Yes Leg swelling: very slight Nausea: No diaphoresis: No Heartburn: No Claudication: Yes Smoking: No Following Low cholesterol, high fiber diet? Yes If on statin: muscle aches? Yes If on statin: GI sx or diarrhea? No Additional history none. Renal mass, right (primary encounter diagnosis) Stage 3 chronic renal impairment associated with type 2 diabetes mellitus (hcc) 02/13/2021 ct ab/pel 2.55 x 2.45 cm solid mass right upper pole 07/11/19 MRI 2.2 cm enhancing right upper pole renal mass concerning for renal cell Carcinoma. 06/12/19 mass upper right kidney pole suspicious for renal cell carcinoma Duodenal ulcer Esophageal stenosis Hypomagnesemia History of ischemic colitis Adenomatous polyp of descending colon Current medications: Omeprazole 40mg daily AC Taking 2 metamucil tabs daily which helps keep bowels regular Current symptoms: none, stomach is "wonderful". Last Mg level if on PPI chronically: below. Heartburn is controlled: Yes. Dysphagia: No. Bloody or black stools: No. Bowel changes: No. Last EGD and/or colonoscopy: 06/10/2021. Current lab: Component Latest Ref Rng & Units 09/13/2021 09/18/2021 11/28/2021 WBC 3.70 - 11.00 k/uL 8.69 8.76 RBC 3.90 - 5.20 m/uL 4.20 3.29 (L) Hemoglobin 11.5 - 15.5 g/dL 10.9 (L) 8.5 (L) Hematocrit 36.0 - 46.0 % 35.6 (L) 27.0 (L) MCV 80.0 - 100.0 fL 84.8 82.1 MCH 26.0 - 34.0 pg 26.0 25.8 (L) MCHC 30.5 - 36.0 g/dL 30.6 31.5 RDW-CV 11.5 - 15.0 % 19.3 (H) 15.9 (H) Platelet Count 150 - 400 k/uL 208 247 MPV 9.0 - 12.7 fL 10.9 9.4 Absolute nRBC <0.01 k/uL <0.01 <0.01 Occult Blood, Stool Negative Positive (A) Component Latest Ref Rng & Units 03/15/2020 07/12/2020 Magnesium 1.7 - 2.3 mg/dL 2.2 2.0 Adjustment insomnia Current medications: mirtazepine 15mg daily HS as needed Taking 1/2, only three times, had fog all the next day- wants to stop HISTORIES FAMILY HISTORY Problem Relation Age of Onset other (Heart Problems) Mother other (myocardial infarction) Mother other (cardiovascular disease) Mother other (Heart Attack) Father other (cardiovascular disease) Father Diabetes Maternal Grandmother PAST MEDICAL HISTORY Diagnosis Date Abnormal colonoscopy [...] surgical removal Chronic mastoiditis of left side Diabetes (HCC) Diabetes (HCC) GERD (gastroesophageal reflux disease) H/O: GI bleed High blood pressure Hypercholesterolemia Mastoiditis of right side s/p mastoidectomy, complete opacitificationright tympanic cavity and mastoid cells on CT 06/01/16 Mitral valve regurgitation Pacemaker 10/21/[address] TRELL VERNON [id number] pulse generator, his bundle lead, right atrial lead Peripheral arterial disease (HCC) Rheumatic fever Steatosis, liver 03/26/2014 fatty liver on US. No gallstones Tachy-pavan syndrome (HCC) PAST SURGICAL HISTORY Procedure Laterality Date ABLATION 2018 for afib ANESTHESIA EXTERNAL MIDDLE & INNER EAR W/BX NOS 2002, 2004,04/30/15 CARDIOVERSION 2018 EGD 02/28/2021 ESOPHAGOGASTRODUODENOSCOPY TRANSORAL DIAGNOSTIC 02/28/2021 LAP COLECTOMY, SIGMOID W/SUPERVISING LIBRARIAN 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 Lua PACEMAKER 10/2019 PART. HYSTERECTOMY W/WO RMVL OVARIES/TUBES 1974 h/o cervical cancer ovaries remain PAST SURGICAL HISTORY OF 1996 Aortic valve repair, Dr. Apodaca PAST SURGICAL HISTORY OF 2001 [address] Beltrán, [facility] PAST SURGICAL HISTORY OF 2015 clipping and coil for brain aneurysm Social History Tobacco Use Smoking status: Former Smoker Quit date: 02/11/1970 Years since quittin.8 Smokeless tobacco: Never Used Vaping Use Vaping Use: Never used Substance Use Topics Alcohol use: Yes Alcohol/week: 1.0 standard drink Types: 1 Glasses of Wine (5oz) per week Comment: red wine 2-3 times a week- occasional Drug use: No ACTIVE PROBLEM LIST History of Prosthetic Aortic Valve Replacement Aortic Prosthetic Valve Regurgitation Paroxysmal Atrial Fibrillation (Hcc) Htn (Hypertension) Hyperlipidemia With Target Ldl Less Than 70 Gerd (Gastroesophageal Reflux Disease) Chronic Anticoagulation Fatigue Sob (Shortness of Breath) H/O Rheumatic Heart Disease Basal Cell Carcinoma Left Shoulder Pain Abdominal Pain Intracranial Aneurysm Bilateral Carotid Artery Stenosis Osteopenia of Left Lower Leg Mastoiditis of Right Side Chronic Mastoiditis of Left Side Personal History of Colonic Polyps History of Ischemic Colitis Adenomatous Polyp of Descending Colon Skin Cancer Pad (Peripheral Artery Disease) (Hcc) Pedro Aneurysm of Anterior Communicating Artery Stage 3 Chronic Renal Impairment Associated With Type 2 Diabetes Mellitus (Hcc) History of Pulmonary Embolism Ascending Aorta Dilatation (Hcc) Chronic Bilateral Pleural Effusions Colovesical Fistula Renal Mass, Right Diverticulitis Large Intestine W/O Perforation Or Abscess W/O Bleeding Renal Cell Carcinoma, Right (Hcc) Iron Deficiency Anemia Hypomagnesemia Gastrointestinal Hemorrhage Associated With Acute Gastritis Esophageal Stenosis Dilated Cardiomyopathy (Hcc) Chronic Diastolic Congestive Heart Failure (Hcc) Sss (Sick Sinus Syndrome) (Hcc) Duodenal Ulcer Type 2 Diabetes Mellitus With Diabetic Peripheral Angiopathy Without Gangrene, Without Long-Term Current Use of Insulin (Hcc) Current Outpatient Medications Medication Sig Dispense Refill rivaroxaban (XARELTO) 20 mg tablet Take 1 tablet by mouth once daily. 81 tablet 0 amLODIPine (NORVASC) 5 mg tablet Take 1 tablet by mouth twice daily. 180 tablet 0 omeprazole (PRILOSEC) 40 mg capsule Take 1 capsule by mouth once daily. 90 capsule 1 sodium chloride 0.9 %, flush, (BD POSIFLUSH) syringe Inject 2-10 mL intravenously as directed. For Echo procedure 10 mL 0 rivaroxaban (XARELTO) 15 mg tablet Take 1 tablet by mouth daily with dinner. 90 tablet 3 mirtazapine (REMERON) 15 mg tablet Take 1 tablet by mouth daily at bedtime. (Patient taking differently: Take 15 mg by mouth at bedtime as needed. ) 30 tablet 2 metoprolol succinate ER (TOPROL XL) 25 mg 24 hr tablet TAKE 1 TABLET BY MOUTH EVERY DAY 90 tablet 3 lisinopril (ZESTRIL, PRINIVIL) 40 mg tablet TAKE 1 TABLET BY MOUTH EVERY DAY 90 tablet 3 furosemide (LASIX) 20 mg tablet Take 1 tablet by mouth once daily. 90 tablet 3 simvastatin (ZOCOR) 20 mg tablet Take 1 tablet by mouth daily at bedtime. 90 tablet 3 acetaminophen (TYLENOL) 500 mg tablet Take 1-2 tablets by mouth every 6 hours as needed. Cholecalciferol-Soy Isoflavone 2,000-64 unit-mg tab Take 1 capsule by mouth once daily. clotrimazole-betamethasone (LOTRISONE) cream Apply 1 application to affected area twice daily. UNTIL CLEAR FOR UP TO 2-3 WEEKS 30 g 1 magnesium oxide (MAG-OX) 400 mg (241.3 mg magnesium) tablet Take 1 tablet by mouth twice daily for 10 days. (Patient taking differently: Take 400 mg by mouth once daily. ) 20 tablet 0 blood sugar diagnostic (BLOOD GLUCOSE TEST) test strip Test blood sugar(s) 2 times daily. Dx: Type 2 DM - Controlled E11.9 Insulin: No 50 Strip 11 UBIDECARENONE (COQ-10 ORAL) Take 1 capsule by mouth once daily. Current Facility-Administered Medications Medication Dose Route Frequency Provider Last Rate Last Admin perflutren lipid microspheres 1.3 mL in NaCl (PF) 0.9% 10 mL injection (DEFINITY) INTRAVENOUS DIRECTED PRN Carla Burdick MD sodium chloride 0.9 % (flush) 10 mL (BD POSIFLUSH) 10 mL INTRAVENOUS DIRECTED PRN Carla Burdick MD DIABETIC FOOT EXAM due on 01/08/2015 DEPRESSION SCREENING due on 07/18/2020 HBA1C due on 06/12/2021 ADVANCE DIRECTIVE DISCUSSION Never done URINE ALBUMIN:CREATININE RATIO due on 07/12/2021 COVID-19 VACCINE(4 - Booster for Pfizer series) due on 07/13/2021 LDL CHOLESTEROL due on 12/11/2021 EXAM: BP 118/64 Pulse 97 Temp 36.8 C (98.2 F) (Left Tympanic) Resp 18 Wt 66 kg (145 lb 9.6 oz) SpO2 99% BMI 25.79 kg/m Pleasant well appearing older adult woman in no acute distress. Alert and oriented all spheres. Normal affect and cognition. Speech normal. No deficits to learning or comprehension. Skin warm, dry, pink to lips and nailbeds. Normal turgor. Respirations regular and unlabored. HEENT: NCAT. No scleral icterus or conjunctival injection.Cerumen plugging right ear canal: removedwith warm tap water lavage. TM's clear. Nose and oropharynx free from injection or lesion. Oral membranes moist and pink. No cervical lymph nodes. Thyroid non-tender, no masses, or enlargement. Carotids pulses 2+/4+ without bruits. No JVD with HOB at 30 degrees.\\ Chest is normal shape. Lungs are clear to all rosas with good air exchange through out. HRRR irregular with wheezing murmur Erb's point, no gallop. No lifts, heaves, or rubs. Abdomen: active bowel sounds throughout, soft, nontender, no masses or organomegaly. No CVAT. Extrem: no clubbing or cyanosis. Edema: 0-1+/4+. Extremities are warm and pink with prompt capillary refill. + tender over ischium on left. NO significant pain with hip ROM. ASSESSMENT/PLAN: 1. Renal mass, right - ICD9: 593.9, ICD10: N28.89 (primary diagnosis) Stable, there has been no change in decision to act on findings. 2. History of pulmonary embolism - ICD9: V12.55, ICD10: Z86.711 Stable, anticoagulated 3. Primary hypertension - ICD9: 401.9, ICD10: I10 - good control - Continue current medication(s) - Recommended regular aerobic exercise. - Recommend home blood pressure monitoring, to bring results in on next visit - Goal of BP <130/80 4. Hyperlipidemia with target LDL less than 70 - ICD9: 272.4, ICD10: E78.5 - good control - Continue current medication. - SIMVASTATIN 20 MG TABLET 5. Dilated cardiomyopathy (HCC) - ICD9: 425.4, ICD10: I42.0 6. SSS (sick sinus syndrome) (HCC) - ICD9: 427.81, ICD10: I49.5 7. Chronic diastolic congestive heart failure (HCC) - ICD9: 428.32, 428.0, ICD10: I50.32 Stable currently 8. Ascending aorta dilatation (HCC) - ICD9: 447.71, ICD10: I77.810 Outstanding orders for echo 01/12/2022 9. Pedro aneurysm of anterior communicating artery - ICD9: 430, ICD10: I67.1 Last MRA/MRI 2017- will review next visit 10. Bilateral carotid artery stenosis - ICD9: 433.10, 433.30, ICD10: I65.23 Due for surveillance: will address in subsequent visit. 11. Chronic anticoagulation - ICD9: V58.61, ICD10: Z79.01 Compliant with Xarelto 12. Duodenal ulcer - ICD9: 532.90, ICD10: K26.9 Hx. No current sx. 13. Esophageal stenosis - ICD9: 530.3, ICD10: K22.2 No dysphagia 14. Hypomagnesemia - ICD9: 275.2, ICD10: E83.42 stable 15. Stage 3 chronic renal impairment associated with type 2 diabetes mellitus (HCC) - ICD9: 250.40,585.3, ICD10: E11.22, N18.30 stable 16. History of ischemic colitis - ICD9: V12.79, ICD10: Z87.19 17. Adenomatous polyp of descending colon - ICD9: 211.3, ICD10: D12.4 18. PAD (peripheral artery disease) ([facility]) - ICD9: 443.9, ICD10: I73.9 19. Type 2 diabetes mellitus with diabetic peripheral angiopathy without gangrene, without long-term current use of insulin (HCC) - ICD9: 250.70, 443.81, ICD10: E11.51 Controlled. - Continue current medications - ALBUMIN/CREAT RATIO RND UR - HGB A1C 20. Heme + stool - ICD9: 792.1, ICD10: R19.5 - CBC - OMEPRAZOLE 40 MG CAPSULE,DELAYED RELEASE - FECAL OCCULT BLOOD TEST 21. Epigastric pain - ICD9: 789.06, ICD10: R10.13 - OMEPRAZOLE 40 MG CAPSULE,DELAYED RELEASE 22. Blood loss anemia - ICD9: 280.0, ICD10: D50.0 - OMEPRAZOLE 40 MG CAPSULE,DELAYED RELEASE - CBC 23. Chronic insomnia - ICD9: 780.52, ICD10: F51.04 Trial new medication: reviewed cautions, side effects, administration - TRAZODONE 50 MG TABLET 24. Ischial bursitis of left side - ICD9: 726.5, ICD10: M70.72 Ice, rotate seated position often. - PREDNISONE 20 MG TABLET - XR HIP GENERAL 3V PELV/AP/LAT LEFT Doreen Le PA-C documented in this encounterLake[facility]06-02-2022 Miscellaneous Notes* Telephone Encounter - Marleen Schaffer RN - 12/04/2021 2:[address] Swan sent prescription. Plan for 20 mg Xarelto for 21 days prior to Watchman and will continue for 45 days after Watchman (until post procedure ABDIEL to evaluate). Left detailed message on patient VM with office number. Marleen Schaffer RN * Telephone Encounter - Deonna Bryant - 12/03/2021 8:29 AM EDT December 03, 2021 Patient Contact Number: [phone] (home) [phone] (cell) Patient last seen within the last year: Yes Reason for Call: Medication Issue/Question: Patient's Xarelto is needing to be increased to 20 mg in preparation for the Watchman procedure in January. Needing to know exact amount of pills oat 20 mg toorder. Will order exact amount of pills at 20 mg, then return to current dosage if advised. Please notify admin so that refill can be prepared for approval. Thank you, Deonna Bryant, Admin documented in this encounterLake[facility]05-26-2022 History of Present illness Narrative* Dagmar Thomas - 11/27/2021 12:36 PM EDT set documented in this encounterLake[facility]05-25-2022 History of Present illness Narrative* Na Ramirez APRN.SIGN BOARD ERECTOR - 11/26/2021 9:27 AM EDT VASCULAR SURGERY ESTABLISHED PATIENT SERVICE DATE: 11/26/2021 SERVICE TIME: 9:29 AM PRIMARY CARE PHYSICIAN: Doreen Le PA-C SUBJECTIVE HISTORY OF PRESENT ILLNESS: This is a 76 y.o. female with pmhx of PAD, AFIB on Xarelto, SMA stenosis, HTN, HDL, that presents to the office with worsening bethel leg cramping/tightness and claudication most nights. Pt reports she can only was 1/8th of a mile before onset of symptoms. Symptoms at nightsome times improve with over the counter Tylenol & Bio-frezze. She has been under the care of Dr. Cleary and is known to Vascular Surgery. No previous interventions or revascularizations. Numbness/tinglingin hands intermittently. PAST MEDICAL/SURGICAL/FAMILY/SOCIAL HISTORY PAST MEDICAL HISTORY Diagnosis Date Abnormal colonoscopy [...] surgical removal Chronic mastoiditis of left side Diabetes (HCC) Diabetes (HCC) GERD (gastroesophageal reflux disease) H/O: GI bleed High blood pressure Hypercholesterolemia Mastoiditis of right side s/p mastoidectomy, complete opacitificationright tympanic cavity and mastoid cells on CT 06/01/16 Mitral valve regurgitation Pacemaker 10/21/[address] TRELL VERNON [id number] pulse generator, his bundle lead, right atrial lead Peripheral arterial disease (HCC) Rheumatic fever Steatosis, liver 03/26/2014 fatty liver on US. 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 Lua PACEMAKER 10/2019 PART. HYSTERECTOMY W/WO RMVL OVARIES/TUBES 1974 h/o cervical cancer ovaries remain PAST SURGICAL HISTORY OF 1996 Aortic valve repair, Dr. Apodaca PAST SURGICAL HISTORY OF 2001 [address] Beltrán, [facility] PAST SURGICAL HISTORY OF 2016 clipping and coil for brain aneurysm FAMILY HISTORY Problem Relation Age of Onset other (Heart Problems) Mother other (myocardial infarction) Mother other (cardiovascular disease) Mother other (Heart Attack) Father other (cardiovascular disease) Father Diabetes Maternal Grandmother SOCIAL HISTORY Social History Tobacco Use Smoking status: Former Smoker Quit date: 02/11/1970 Years since quittin.8 Smokeless tobacco: Never Used Vaping Use Vaping Use: Never used Substance Use Topics Alcohol use: Yes Alcohol/week: 1.0 standard drink Types: 1 Glasses of Wine (5oz) per week Comment: red wine 2-3 times a week- occasional Drug use: No MEDICATIONS/ALLERGIES Current Outpatient Medications Medication Sig Dispense Refill amLODIPine (NORVASC) 5 mg tablet Take 1 tablet by mouth twice daily. 180 tablet 0 omeprazole (PRILOSEC) 40 mg capsule Take 1 capsule by mouth once daily. 90 capsule 1 sodium chloride 0.9 %, flush, (BD POSIFLUSH) syringe Inject 2-10 mL intravenously as directed. For Echo procedure 10 mL 0 rivaroxaban (XARELTO) 15 mg tablet Take 1 tablet by mouth daily with dinner. 90 tablet 3 mirtazapine (REMERON) 15 mg tablet Take 1 tablet by mouth daily at bedtime. (Patient taking differently: Take 15 mg by mouth at bedtime as needed. ) 30 tablet 2 metoprolol succinate ER (TOPROL XL) 25 mg 24 hr tablet TAKE 1 TABLET BY MOUTH EVERY DAY 90 tablet 3 lisinopril (ZESTRIL, PRINIVIL) 40 mg tablet TAKE 1 TABLET BY MOUTH EVERY DAY 90 tablet 3 furosemide (LASIX) 20 mg tablet Take 1 tablet by mouth once daily. 90 tablet 3 simvastatin (ZOCOR) 20 mg tablet Take 1 tablet by mouth daily at bedtime. 90 tablet 3 acetaminophen (TYLENOL) 500 mg tablet Take 1-2 tablets by mouth every 6 hours as needed. Cholecalciferol-Soy Isoflavone 2,000-64 unit-mg tab Take 1 capsule by mouth once daily. clotrimazole-betamethasone (LOTRISONE) cream Apply 1 application to affected area twice daily. UNTIL CLEAR FOR UP TO 2-3 WEEKS 30 g 1 magnesium oxide (MAG-OX) 400 mg (241.3 mg magnesium) tablet Take 1 tablet by mouth twice daily for 10 days. (Patient taking differently: Take 400 mg by mouth once daily. ) 20 tablet 0 blood sugar diagnostic (BLOOD GLUCOSE TEST) test strip Test blood sugar(s) 2 times daily. Dx: Type 2 DM - Controlled E11.9 Insulin: No 50 Strip 11 UBIDECARENONE (COQ-10 ORAL) Take 1 capsule by mouth once daily. Current Facility-Administered Medications Medication Dose Route Frequency Provider Last Rate Last Admin perflutren lipid microspheres 1.3 mL in NaCl (PF) 0.9% 10 mL injection (DEFINITY) INTRAVENOUS DIRECTED PRN Carla Burdick MD sodium chloride 0.9 % (flush) 10 mL (BD POSIFLUSH) 10 mL INTRAVENOUS DIRECTED PRN Carla Burdick MD ALLERGIES No Known Allergies OBJECTIVE Ht 160 cm (5' 3") Wt 65.8 kg (145 lb) BMI 25.69 kg/m REVIEW OF SYSTEM: Constitutional: Negative for significant weight loss HEENT: Negative for frequent or significant headaches Respiratory: Negative for cough, wheezing, or shortness of breath Cardiovascular: Negative for chest pain, leg swelling or palpitations Gatrointestinal: Negative abdominal discomfort Genitourinary: No history of dysuria, frequency, or incontinence Musculoskeletal:Positive Bilateral leg tightness and claudication Negative for joint pain or swelling, back pain. Hematology/Lymphatic: Negative for prolonged bleeding, bruising easily or swollen nodes Neurologic: No history or headaches, syncope, paralysis, seizures or tremors Integumentary: Negative for lesions, rash, and itching. General: Alert and oriented Integumentary: Normal color, no rash, no lesions. HEENT: EOM, pupils equal, round and reactive. Cardiovascular: Pulse regular. Lungs: Normal breath sounds, no wheezes or crackles. Abdomen: Soft, non-tender, no rigidity. Extremities: No deformity, no edema or tenderness, no joint swelling or clubbing. Neurological: Normal cognition and motor skills. Vascular: palp b/l fem, non-palp bl pop/dp/pt Data Review: Most recent labs and imaging results. 11/26/2021 RABI 0.41, RTBI.3 LABI 0.63, LTBI.38 Compared to prior study of 04/25/2021, increase in bilateral ankle brachial index (previously 0.34 R, 0.50 L) and right toe brachial index (previously 0.17). Decrease in left toe brachial index (previously 0.38) and bilateral inflow resting waveforms. ASSESSMENT (I73.9) PAD (peripheral artery disease) (HCC) (primary encounter diagnosis) (D63.8) Anemia due to chronic illness PLAN/RECOMMENDATIONS PAD - Will review case with Dr. Cleary, unclear if additional testing will be beneficial. - BMP pending - Continue with medications - Heart Healthy diet - Encourage ambulation Time spent: 45 documented in this encounterLake[facility]04-20-2022 Miscellaneous Notes* Telephone Encounter - Marycruz Clau - 10/22/2021 3:42 PM EDT Patient needs a refill on this med. She is on vacation. Pharmacy called requesting the following refill: Pending Prescriptions Disp Refills AMLODIPINE 5 MG TABLET 180 tablet 0 Sig: Take 1 tablet by mouth twice daily. BRAYAN: No Script(s) will be E-script to pharmacy Future visits: Visit date not found Date of last office visit was: 04/22/2021 The patients preferred pharmacy has been captured for this encounter? yes Marycruz Olguin documented in this encounterLake[facility]03-24-2022 Miscellaneous Notes* Telephone Encounter - Sigifredo Monge - 09/25/2021 4:57 PM EDT patient cancelled as requested. patient has cardiac procedures coming up in January. Patient stated she is feeling better at this time. patient will call and reschedule if her symptoms returns. * Telephone Encounter - Marilyn Rahman - 09/24/2021 1:40 PM EDT Patient is out of town and needs to cancel the procedure on 09/29 in [place]. She thought this was cancelled about a month ago when she received a call. She stated she is so sorry. documented in this encounterLake[facility]03-22-2022 Miscellaneous Notes* Telephone Encounter - Inga Pineda RN - 09/23/2021 9:04 AM EDT Due to change in physician's schedule, called patient to reschedule Watchman Flx procedure with currently scheduled on 12/29/21. New date of 01/12/22 with offered & accepted by patient. Needs Shared Decision Making appointment with Clinical Cardiology staff, Device Clinic, pre-op Covid-19 test, ECG & Labs (CBC,BMP,30 day T&S) on 01/09/22 prior to procedure date. Per Dr. Swan, instructed patient to increase Xarelto dose from 15 mg to 20 mg x once daily, 3 weeks prior to procedure. Patient stated understanding. documented in this encounterLake[facility]08-14-2021 History of Past illness Narrative* Problem Noted Date Resolved Date Encounter for support and coordination of transi tion of care 02/15/2021 09/12/2021 Overview: 02/13/[address] Ferguson's office following gallbladder ultrasound demonstrating sludge. Admitted to some black stools but not bloody. Patient had Hgb of 7.2, hem positive stool. Vital signs 98.1 F-79-17-131/42 98%. Exam nonacute. Abdomen nondistended with tender epigastric and right upper quadrant. WBC 9.7 RBC 2.49L Hgb 7.2L HCT 20 2.8L RDW 50 4.4H PLT 232 with normal differential. CMP notable for sodium 132L, BUN 30 7H, creatinine 1.6H with EGFR 30 2L. GLU 139H. Calcium 8.4L troponin was negative. UA was normal. Blood type is B+. Antibody screen negative. Gallbladder ultrasound: No acute abnormalities, apparent solid nodule in right upper pole of right kidney, CT with contrast or MRII recommended. CT abdomen pelvis: Moderate size hiatal hernia with eccentric soft tissue thickening possibly related to hernia but could not exclude mass, recommended endoscopic or barium swallow to further assess. Solid mass right upper pole and right kidney possibly neoplastic. No evidence of SBO or acute pancreatitis. 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 Chest x-ray: No acute abnormalities. Unable to get beds in local hospital, transferred to [facility]. Anemia 10/24/2019 09/12/2021 Last Assessment & Plan: Assessment & PLAN: See above Renal cell carcinoma 10/24/2019 09/12/2021 Last Assessment & Plan: Currently following with urology (Dr. Wagner) outpatient for routine surveillance imaging MRI kidney on 07/11/19 noting stable 2.2 cm right renal mass No plans for surgical intervention at this time Diverticulitis of large inte farooq with perforation and abscess without bleeding 06/16/2019 09/12/2021 Other chest pain 03/27/2019 09/19/2020 Overview: 03/24/19 CTA chest/ thorax: 1. Small incompletely occluded PE 2nd and 3rd branch right upper lobe PA; 2. Stable cardiac enlargement; Moderate calcification aortic root with 4.5cm fusiform dilatation mid-ascending aorta; 3. Atherosclerotic calcifications with ostial stenosis celiac trunk, SMA, bilateral renal arteries; 4. Small dependent pleural effusions, larger on right, compressive atelectasis posterior lung bases. 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 On January 2014, she needed a mammogram, colonosocpy, and BMD, she want the colonoscopy in the fall. Last Assessment & Plan: She has an appointment for the colonoscopy initial eval coming up, BMD was normal, discussed with the patient. SUMMARY 12/09/2013 12/22/2018 Overview: Htn, HPL, diabetes uncontrolled with hypoglycemia, aortic bioprosthetic valve, on xeralto, with mitral and aortic valves regurgitating, needs Yearly, Echo. Skin cancer , recent excision, Next visit need to do all the preventive measures. PVD and Carotid artery details, endocervical cancer. need to be probed into, got this form her previous records, patient did not mention to us. Carotid artery disease 12/09/2013 Overview: Per her records Type 2 diabetes mellitus wit hout complication, without long-term current use of insulin 11/20/2013 09/12/2021 Overview: 2008; has been well controlled for a while. Metformin caused her diarrhea. Patient had her eyes examined in [place] this year and was told that she had no retinopathy. December 7.5, she has been running around that for the last couple years, didn't take careof he diabetes. Last Assessment & Plan: Last a1c 7.1 on 06/07/19 Not on any home meds at this time (intolerance to metformin in past) Hemoglobin A1C (%) Date Value 10/24/2019 7.0 Follow up with pcp for discussion on initiating therapy documented as of this encounter (statuses as of 09/23/2021) [facility]08[facility] History of Past illness Narrative* Problem Noted Date Resolved Date Encounter for support and coordination of transi tion of care 02/15/2021 09/12/2021 Overview: 02/13/[address] Ferguson's office following gallbladder ultrasound demonstrating sludge. Admitted to some black stools but not bloody. Patient had Hgb of 7.2, hem positive stool. Vital signs 98.1 F-79-17-131/42 98%. Exam nonacute. Abdomen nondistended with tender epigastric and right upper quadrant. WBC 9.7 RBC 2.49L Hgb 7.2L HCT 20 2.8L RDW 50 4.4H PLT 232 with normal differential. CMP notable for sodium 132L, BUN 30 7H, creatinine 1.6H with EGFR 30 2L. GLU 139H. Calcium 8.4L troponin was negative. UA was normal. Blood type is B+. Antibody screen negative. Gallbladder ultrasound: No acute abnormalities, apparent solid nodule in right upper pole of right kidney, CT with contrast or MRII recommended. CT abdomen pelvis: Moderate size hiatal hernia with eccentric soft tissue thickening possibly related to hernia but could not exclude mass, recommended endoscopic or barium swallow to further assess. Solid mass right upper pole and right kidney possibly neoplastic. No evidence of SBO or acute pancreatitis. 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 Chest x-ray: No acute abnormalities. Unable to get beds in local hospital, transferred to [facility]. Anemia 10/24/2019 09/12/2021 Last Assessment & Plan: Assessment & PLAN: See above Renal cell carcinoma 10/24/2019 09/12/2021 Last Assessment & Plan: Currently following with urology (Dr. Wagner) outpatient for routine surveillance imaging MRI kidney on 07/11/19 noting stable 2.2 cm right renal mass No plans for surgical intervention at this time Diverticulitis of large inte farooq with perforation and abscess without bleeding 06/16/2019 09/12/2021 Other chest pain 03/27/2019 09/19/2020 Overview: 03/24/19 CTA chest/ thorax: 1. Small incompletely occluded PE 2nd and 3rd branch right upper lobe PA; 2. Stable cardiac enlargement; Moderate calcification aortic root with 4.5cm fusiform dilatation mid-ascending aorta; 3. Atherosclerotic calcifications with ostial stenosis celiac trunk, SMA, bilateral renal arteries; 4. Small dependent pleural effusions, larger on right, compressive atelectasis posterior lung bases. 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 On January 2014, she needed a mammogram, colonosocpy, and BMD, she want the colonoscopy in the fall. Last Assessment & Plan: She has an appointment for the colonoscopy initial eval coming up, BMD was normal, discussed with the patient. SUMMARY 12/09/2013 12/22/2018 Overview: Htn, HPL, diabetes uncontrolled with hypoglycemia, aortic bioprosthetic valve, on xeralto, with mitral and aortic valves regurgitating, needs Yearly, Echo. Skin cancer , recent excision, Next visit need to do all the preventive measures. PVD and Carotid artery details, endocervical cancer. need to be probed into, got this form her previous records, patient did not mention to us. Carotid artery disease 12/09/2013 2 Overview: Per her records Type 2 diabetes mellitus wit hout complication, without long-term current use of insulin 11/20/2013 09/12/2021 Overview: 2008; has been well controlled for a while. Metformin caused her diarrhea. Patient had her eyes examined in [place] this year and was told that she had no retinopathy. December 7.5, she has been running around that for the last couple years, didn't take careof he diabetes. Last Assessment & Plan: Last a1c 7.1 on 06/07/19 Not on any home meds at this time (intolerance to metformin in past) Hemoglobin A1C (%) Date Value 10/24/2019 7.0 Follow up with pcp for discussion on initiating therapy documented as of this encounter (statuses as of 09/26/2021) [facility] History of Past illness Narrative* Problem Noted Date Resolved Date Encounter for support and coordination of transi tion of care 02/15/2021 09/12/2021 Overview: 02/13/[address] Ferguson's office following gallbladder ultrasound demonstrating sludge. Admitted to some black stools but not bloody. Patient had Hgb of 7.2, hem positive stool. Vital signs 98.1 F-79-17-131/42 98%. Exam nonacute. Abdomen nondistended with tender epigastric and right upper quadrant. WBC 9.7 RBC 2.49L Hgb 7.2L HCT 20 2.8L RDW 50 4.4H PLT 232 with normal differential. CMP notable for sodium 132L, BUN 30 7H, creatinine 1.6H with EGFR 30 2L. GLU 139H. Calcium 8.4L troponin was negative. UA was normal. Blood type is B+. Antibody screen negative. Gallbladder ultrasound: No acute abnormalities, apparent solid nodule in right upper pole of right kidney, CT with contrast or MRII recommended. CT abdomen pelvis: Moderate size hiatal hernia with eccentric soft tissue thickening possibly related to hernia but could not exclude mass, recommended endoscopic or barium swallow to further assess. Solid mass right upper pole and right kidney possibly neoplastic. No evidence of SBO or acute pancreatitis. 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 Chest x-ray: No acute abnormalities. Unable to get beds in local hospital, transferred to [facility]. Anemia 10/24/2019 09/12/2021 Last Assessment & Plan: Assessment & PLAN: See above Renal cell carcinoma 10/24/2019 09/12/2021 Last Assessment & Plan: Currently following with urology (Dr. Wagner) outpatient for routine surveillance imaging MRI kidney on 07/11/19 noting stable 2.2 cm right renal mass No plans for surgical intervention at this time Diverticulitis of large inte farooq with perforation and abscess without bleeding 06/16/2019 09/12/2021 Other chest pain 03/27/2019 09/19/2020 Overview: 03/24/19 CTA chest/ thorax: 1. Small incompletely occluded PE 2nd and 3rd branch right upper lobe PA; 2. Stable cardiac enlargement; Moderate calcification aortic root with 4.5cm fusiform dilatation mid-ascending aorta; 3. Atherosclerotic calcifications with ostial stenosis celiac trunk, SMA, bilateral renal arteries; 4. Small dependent pleural effusions, larger on right, compressive atelectasis posterior lung bases. 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 On January 2014, she needed a mammogram, colonosocpy, and BMD, she want the colonoscopy in the fall. Last Assessment & Plan: She has an appointment for the colonoscopy initial eval coming up, BMD was normal, discussed with the patient. SUMMARY 12/09/2013 12/22/2018 Overview: Htn, HPL, diabetes uncontrolled with hypoglycemia, aortic bioprosthetic valve, on xeralto, with mitral and aortic valves regurgitating, needs Yearly, Echo. Skin cancer , recent excision, Next visit need to do all the preventive measures. PVD and Carotid artery details, endocervical cancer. need to be probed into, got this form her previous records, patient did not mention to us. Carotid artery disease 12/09/2013 Overview: Per her records Type 2 diabetes mellitus wit hout complication, without long-term current use of insulin 11/20/2013 09/12/2021 Overview: 2008; has been well controlled for a while. Metformin caused her diarrhea. Patient had her eyes examined in [place] this year and was told that she had no retinopathy. December 7.5, she has been running around that for the last couple years, didn't take careof he diabetes. Last Assessment & Plan: Last a1c 7.1 on 06/07/19 Not on any home meds at this time (intolerance to metformin in past) Hemoglobin A1C (%) Date Value 10/24/2019 7.0 Follow up with pcp for discussion on initiating therapy documented as of this encounter (statuses as of 10/22/2021) [facility]08-14-2021 History of Past illness Narrative* Problem Noted Date Resolved Date Encounter for support and coordination of transi tion of care 02/15/2021 09/12/2021 Overview: 02/13/[address] Ferguson's office following gallbladder ultrasound demonstrating sludge. Admitted to some black stools but not bloody. Patient had Hgb of 7.2, hem positive stool. Vital signs 98.1 F-79-17-131/42 98%. Exam nonacute. Abdomen nondistended with tender epigastric and right upper quadrant. WBC 9.7 RBC 2.49L Hgb 7.2L HCT 20 2.8L RDW 50 4.4H PLT 232 with normal differential. CMP notable for sodium 132L, BUN 30 7H, creatinine 1.6H with EGFR 30 2L. GLU 139H. Calcium 8.4L troponin was negative. UA was normal. Blood type is B+. Antibody screen negative. Gallbladder ultrasound: No acute abnormalities, apparent solid nodule in right upper pole of right kidney, CT with contrast or MRII recommended. CT abdomen pelvis: Moderate size hiatal hernia with eccentric soft tissue thickening possibly related to hernia but could not exclude mass, recommended endoscopic or barium swallow to further assess. Solid mass right upper pole and right kidney possibly neoplastic. No evidence of SBO or acute pancreatitis. 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 Chest x-ray: No acute abnormalities. Unable to get beds in local hospital, transferred to [facility]. Anemia 10/24/2019 09/12/2021 Last Assessment & Plan: Assessment & PLAN: See above Renal cell carcinoma 10/24/2019 09/12/2021 Last Assessment & Plan: Currently following with urology (Dr. Wagner) outpatient for routine surveillance imaging MRI kidney on 07/11/19 noting stable 2.2 cm right renal mass No plans for surgical intervention at this time Diverticulitis of large inte farooq with perforation and abscess without bleeding 06/16/2019 09/12/2021 Other chest pain 03/27/2019 09/19/2020 Overview: 03/24/19 CTA chest/ thorax: 1. Small incompletely occluded PE 2nd and 3rd branch right upper lobe PA; 2. Stable cardiac enlargement; Moderate calcification aortic root with 4.5cm fusiform dilatation mid-ascending aorta; 3. Atherosclerotic calcifications with ostial stenosis celiac trunk, SMA, bilateral renal arteries; 4. Small dependent pleural effusions, larger on right, compressive atelectasis posterior lung bases. 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 On January 2014, she needed a mammogram, colonosocpy, and BMD, she want the colonoscopy in the fall. Last Assessment & Plan: She has an appointment for the colonoscopy initial eval coming up, BMD was normal, discussed with the patient. SUMMARY 12/09/2013 12/22/2018 Overview: Htn, HPL, diabetes uncontrolled with hypoglycemia, aortic bioprosthetic valve, on xeralto, with mitral and aortic valves regurgitating, needs Yearly, Echo. Skin cancer , recent excision, Next visit need to do all the preventive measures. PVD and Carotid artery details, endocervical cancer. need to be probed into, got this form her previous records, patient did not mention to us. Carotid artery disease 12/09/2013 Overview: Per her records Type 2 diabetes mellitus wit hout complication, without long-term current use of insulin 11/20/2013 09/12/2021 Overview: 2008; has been well controlled for a while. Metformin caused her diarrhea. Patient had her eyes examined in [place] this year and was told that she had no retinopathy. December 7.5, she has been running around that for the last couple years, didn't take careof he diabetes. Last Assessment & Plan: Last a1c 7.1 on 06/07/19 Not on any home meds at this time (intolerance to metformin in past) Hemoglobin A1C (%) Date Value 10/24/2019 7.0 Follow up with pcp for discussion on initiating therapy documented as of this encounter (statuses as of 11/17/2021) [facility]08-14-2021 History of Past illness Narrative* Problem Noted Date Resolved Date Encounter for support and coordination of transi tion of care 02/15/2021 09/12/2021 Overview: 02/13/[address] Ferguson's office following gallbladder ultrasound demonstrating sludge. Admitted to some black stools but not bloody. Patient had Hgb of 7.2, hem positive stool. Vital signs 98.1 F-79-17-131/42 98%. Exam nonacute. Abdomen nondistended with tender epigastric and right upper quadrant. WBC 9.7 RBC 2.49L Hgb 7.2L HCT 20 2.8L RDW 50 4.4H PLT 232 with normal differential. CMP notable for sodium 132L, BUN 30 7H, creatinine 1.6H with EGFR 30 2L. GLU 139H. Calcium 8.4L troponin was negative. UA was normal. Blood type is B+. Antibody screen negative. Gallbladder ultrasound: No acute abnormalities, apparent solid nodule in right upper pole of right kidney, CT with contrast or MRII recommended. CT abdomen pelvis: Moderate size hiatal hernia with eccentric soft tissue thickening possibly related to hernia but could not exclude mass, recommended endoscopic or barium swallow to further assess. Solid mass right upper pole and right kidney possibly neoplastic. No evidence of SBO or acute pancreatitis. 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 Chest x-ray: No acute abnormalities. Unable to get beds in local hospital, transferred to [facility]. Anemia 10/24/2019 09/12/2021 Last Assessment & Plan: Assessment & PLAN: See above Renal cell carcinoma 10/24/2019 09/12/2021 Last Assessment & Plan: Currently following with urology (Dr. Wagner) outpatient for routine surveillance imaging MRI kidney on 07/11/19 noting stable 2.2 cm right renal mass No plans for surgical intervention at this time Diverticulitis of large inte farooq with perforation and abscess without bleeding 06/16/2019 09/12/2021 Other chest pain 03/27/2019 09/19/2020 Overview: 03/24/19 CTA chest/ thorax: 1. Small incompletely occluded PE 2nd and 3rd branch right upper lobe PA; 2. Stable cardiac enlargement; Moderate calcification aortic root with 4.5cm fusiform dilatation mid-ascending aorta; 3. Atherosclerotic calcifications with ostial stenosis celiac trunk, SMA, bilateral renal arteries; 4. Small dependent pleural effusions, larger on right, compressive atelectasis posterior lung bases. 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 On January 2014, she needed a mammogram, colonosocpy, and BMD, she want the colonoscopy in the fall. Last Assessment & Plan: She has an appointment for the colonoscopy initial eval coming up, BMD was normal, discussed with the patient. SUMMARY 12/09/2013 12/22/2018 Overview: Htn, HPL, diabetes uncontrolled with hypoglycemia, aortic bioprosthetic valve, on xeralto, with mitral and aortic valves regurgitating, needs Yearly, Echo. Skin cancer , recent excision, Next visit need to do all the preventive measures. PVD and Carotid artery details, endocervical cancer. need to be probed into, got this form her previous records, patient did not mention to us. Carotid artery disease 12/09/2013 2 Overview: Per her records Type 2 diabetes mellitus wit hout complication, without long-term current use of insulin 11/20/2013 09/12/2021 Overview: 2008; has been well controlled for a while. Metformin caused her diarrhea. Patient had her eyes examined in [place] this year and was told that she had no retinopathy. December 09.5, she has been running around that for the last couple years, didn't take careof he diabetes. Last Assessment & Plan: Last a1c 7.1 on 06/07/19 Not on any home meds at this time (intolerance to metformin in past) Hemoglobin A1C (%) Date Value 10/24/2019 7.0 Follow up with pcp for discussion on initiating therapy documented as of this encounter (statuses as of 11/27/2021) [facility]08-14-2021 History of Past illness Narrative* Problem Noted Date Resolved Date Encounter for support and coordination of transi tion of care 02/15/2021 09/12/2021 Overview: 02/13/[address] Ferguson's office following gallbladder ultrasound demonstrating sludge. Admitted to some black stools but not bloody. Patient had Hgb of 7.2, hem positive stool. Vital signs 98.1 F-79-17-131/42 98%. Exam nonacute. Abdomen nondistended with tender epigastric and right upper quadrant. WBC 9.7 RBC 2.49L Hgb 7.2L HCT 20 2.8L RDW 50 4.4H PLT 232 with normal differential. CMP notable for sodium 132L, BUN 30 7H, creatinine 1.6H with EGFR 30 2L. GLU 139H. Calcium 8.4L troponin was negative. UA was normal. Blood type is B+. Antibody screen negative. Gallbladder ultrasound: No acute abnormalities, apparent solid nodule in right upper pole of right kidney, CT with contrast or MRII recommended. CT abdomen pelvis: Moderate size hiatal hernia with eccentric soft tissue thickening possibly related to hernia but could not exclude mass, recommended endoscopic or barium swallow to further assess. Solid mass right upper pole and right kidney possibly neoplastic. No evidence of SBO or acute pancreatitis. 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 Chest x-ray: No acute abnormalities. Unable to get beds in local hospital, transferred to [facility]. Anemia 10/24/2019 09/12/2021 Last Assessment & Plan: Assessment & PLAN: See above Renal cell carcinoma 10/24/2019 09/12/2021 Last Assessment & Plan: Currently following with urology (Dr. Wagner) outpatient for routine surveillance imaging MRI kidney on 07/11/19 noting stable 2.2 cm right renal mass No plans for surgical intervention at this time Diverticulitis of large inte farooq with perforation and abscess without bleeding 06/16/2019 09/12/2021 Other chest pain 03/27/2019 09/19/2020 Overview: 03/24/19 CTA chest/ thorax: 1. Small incompletely occluded PE 2nd and 3rd branch right upper lobe PA; 2. Stable cardiac enlargement; Moderate calcification aortic root with 4.5cm fusiform dilatation mid-ascending aorta; 3. Atherosclerotic calcifications with ostial stenosis celiac trunk, SMA, bilateral renal arteries; 4. Small dependent pleural effusions, larger on right, compressive atelectasis posterior lung bases. 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 On January 2014, she needed a mammogram, colonosocpy, and BMD, she want the colonoscopy in the fall. Last Assessment & Plan: She has an appointment for the colonoscopy initial eval coming up, BMD was normal, discussed with the patient. SUMMARY 12/09/2013 12/22/2018 Overview: Htn, HPL, diabetes uncontrolled with hypoglycemia, aortic bioprosthetic valve, on xeralto, with mitral and aortic valves regurgitating, needs Yearly, Echo. Skin cancer , recent excision, Next visit need to do all the preventive measures. PVD and Carotid artery details, endocervical cancer. need to be probed into, got this form her previous records, patient did not mention to us. Carotid artery disease 12/09/2013 Overview: Per her records Type 2 diabetes mellitus wit hout complication, without long-term current use of insulin 11/20/2013 09/12/2021 Overview: 2008; has been well controlled for a while. Metformin caused her diarrhea. Patient had her eyes examined in [place] this year and was told that she had no retinopathy. December 7.5, she has been running around that for the last couple years, didn't take careof he diabetes. Last Assessment & Plan: Last a1c 7.1 on 06/07/19 Not on any home meds at this time (intolerance to metformin in past) Hemoglobin A1C (%) Date Value 10/24/2019 7.0 Follow up with pcp for discussion on initiating therapy documented as of this encounter (statuses as of 11/27/2021) [facility]08-14-2021 History of Past illness Narrative* Problem Noted Date Resolved Date Encounter for support and coordination of transi tion of care 02/15/2021 09/12/2021 Overview: 02/13/[address] Ferguson's office following gallbladder ultrasound demonstrating sludge. Admitted to some black stools but not bloody. Patient had Hgb of 7.2, hem positive stool. Vital signs 98.1 F-79-17-131/42 98%. Exam nonacute. Abdomen nondistended with tender epigastric and right upper quadrant. WBC 9.7 RBC 2.49L Hgb 7.2L HCT 20 2.8L RDW 50 4.4H PLT 232 with normal differential. CMP notable for sodium 132L, BUN 30 7H, creatinine 1.6H with EGFR 30 2L. GLU 139H. Calcium 8.4L troponin was negative. UA was normal. Blood type is B+. Antibody screen negative. Gallbladder ultrasound: No acute abnormalities, apparent solid nodule in right upper pole of right kidney, CT with contrast or MRII recommended. CT abdomen pelvis: Moderate size hiatal hernia with eccentric soft tissue thickening possibly related to hernia but could not exclude mass, recommended endoscopic or barium swallow to further assess. Solid mass right upper pole and right kidney possibly neoplastic. No evidence of SBO or acute pancreatitis. 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 Chest x-ray: No acute abnormalities. Unable to get beds in local hospital, transferred to [facility]. Anemia 10/24/2019 09/12/2021 Last Assessment & Plan: Assessment & PLAN: See above Renal cell carcinoma 10/24/2019 09/12/2021 Last Assessment & Plan: Currently following with urology (Dr. Wagner) outpatient for routine surveillance imaging MRI kidney on 07/11/19 noting stable 2.2 cm right renal mass No plans for surgical intervention at this time Diverticulitis of large inte farooq with perforation and abscess without bleeding 06/16/2019 09/12/2021 Other chest pain 03/27/2019 09/19/2020 Overview: 03/24/19 CTA chest/ thorax: 1. Small incompletely occluded PE 2nd and 3rd branch right upper lobe PA; 2. Stable cardiac enlargement; Moderate calcification aortic root with 4.5cm fusiform dilatation mid-ascending aorta; 3. Atherosclerotic calcifications with ostial stenosis celiac trunk, SMA, bilateral renal arteries; 4. Small dependent pleural effusions, larger on right, compressive atelectasis posterior lung bases. 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 On January 2014, she needed a mammogram, colonosocpy, and BMD, she want the colonoscopy in the fall. Last Assessment & Plan: She has an appointment for the colonoscopy initial eval coming up, BMD was normal, discussed with the patient. SUMMARY 12/09/2013 12/22/2018 Overview: Htn, HPL, diabetes uncontrolled with hypoglycemia, aortic bioprosthetic valve, on xeralto, with mitral and aortic valves regurgitating, needs Yearly, Echo. Skin cancer , recent excision, Next visit need to do all the preventive measures. PVD and Carotid artery details, endocervical cancer. need to be probed into, got this form her previous records, patient did not mention to us. Carotid artery disease 12/09/2013 2 Overview: Per her records Type 2 diabetes mellitus wit hout complication, without long-term current use of insulin 11/20/2013 09/12/2021 Overview: 2008; has been well controlled for a while. Metformin caused her diarrhea. Patient had her eyes examined in [place] this year and was told that she had no retinopathy. December 7.5, she has been running around that for the last couple years, didn't take careof he diabetes. Last Assessment & Plan: Last a1c 7.1 on 06/07/19 Not on any home meds at this time (intolerance to metformin in past) Hemoglobin A1C (%) Date Value 10/24/2019 7.0 Follow up with pcp for discussion on initiating therapy documented as of this encounter (statuses as of 12/04/2021) [facility]08-14-2021 History of Past illness Narrative* Problem Noted Date Resolved Date Encounter for support and coordination of transi tion of care 02/15/2021 09/12/2021 Overview: 02/13/[address] Ferguson's office following gallbladder ultrasound demonstrating sludge. Admitted to some black stools but not bloody. Patient had Hgb of 7.2, hem positive stool. Vital signs 98.1 F-79-17-131/42 98%. Exam nonacute. Abdomen nondistended with tender epigastric and right upper quadrant. WBC 9.7 RBC 2.49L Hgb 7.2L HCT 20 2.8L RDW 50 4.4H PLT 232 with normal differential. CMP notable for sodium 132L, BUN 30 7H, creatinine 1.6H with EGFR 30 2L. GLU 139H. Calcium 8.4L troponin was negative. UA was normal. Blood type is B+. Antibody screen negative. Gallbladder ultrasound: No acute abnormalities, apparent solid nodule in right upper pole of right kidney, CT with contrast or MRII recommended. CT abdomen pelvis: Moderate size hiatal hernia with eccentric soft tissue thickening possibly related to hernia but could not exclude mass, recommended endoscopic or barium swallow to further assess. Solid mass right upper pole and right kidney possibly neoplastic. No evidence of SBO or acute pancreatitis. 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 Chest x-ray: No acute abnormalities. Unable to get beds in local hospital, transferred to [facility]. Anemia 10/24/2019 09/12/2021 Last Assessment & Plan: Assessment & PLAN: See above Renal cell carcinoma 10/24/2019 09/12/2021 Last Assessment & Plan: Currently following with urology (Dr. aWgner) outpatient for routine surveillance imaging MRI kidney on 07/11/19 noting stable 2.2 cm right renal mass No plans for surgical intervention at this time Diverticulitis of large inte farooq with perforation and abscess without bleeding 06/16/2019 09/12/2021 Other chest pain 03/27/2019 09/19/2020 Overview: 03/24/19 CTA chest/ thorax: 1. Small incompletely occluded PE 2nd and 3rd branch right upper lobe PA; 2. Stable cardiac enlargement; Moderate calcification aortic root with 4.5cm fusiform dilatation mid-ascending aorta; 3. Atherosclerotic calcifications with ostial stenosis celiac trunk, SMA, bilateral renal arteries; 4. Small dependent pleural effusions, larger on right, compressive atelectasis posterior lung bases. 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 On January 2014, she needed a mammogram, colonosocpy, and BMD, she want the colonoscopy in the fall. Last Assessment & Plan: She has an appointment for the colonoscopy initial eval coming up, BMD was normal, discussed with the patient. SUMMARY 12/09/2013 12/22/2018 Overview: Htn, HPL, diabetes uncontrolled with hypoglycemia, aortic bioprosthetic valve, on xeralto, with mitral and aortic valves regurgitating, needs Yearly, Echo. Skin cancer , recent excision, Next visit need to do all the preventive measures. PVD and Carotid artery details, endocervical cancer. need to be probed into, got this form her previous records, patient did not mention to us. Carotid artery disease 12/09/2013 Overview: Per her records Type 2 diabetes mellitus wit hout complication, without long-term current use of insulin 11/20/2013 09/12/2021 Overview: 2008; has been well controlled for a while. Metformin caused her diarrhea. Patient had her eyes examined in [place] this year and was told that she had no retinopathy. December 7.5, she has been running around that for the last couple years, didn't take careof he diabetes. Last Assessment & Plan: Last a1c 7.1 on 06/07/19 Not on any home meds at this time (intolerance to metformin in past) Hemoglobin A1C (%) Date Value 10/24/2019 7.0 Follow up with pcp for discussion on initiating therapy documented as of this encounter (statuses as of 12/04/2021) [facility]08-14-2021 History of Past illness Narrative* Problem Noted Date Resolved Date Encounter for support and coordination of transi tion of care 02/15/2021 09/12/2021 Overview: 02/13/[address] Ferguson's office following gallbladder ultrasound demonstrating sludge. Admitted to some black stools but not bloody. Patient had Hgb of 7.2, hem positive stool. Vital signs 98.1 F-79-17-131/42 98%. Exam nonacute. Abdomen nondistended with tender epigastric and right upper quadrant. WBC 9.7 RBC 2.49L Hgb 7.2L HCT 20 2.8L RDW 50 4.4H PLT 232 with normal differential. CMP notable for sodium 132L, BUN 30 7H, creatinine 1.6H with EGFR 30 2L. GLU 139H. Calcium 8.4L troponin was negative. UA was normal. Blood type is B+. Antibody screen negative. Gallbladder ultrasound: No acute abnormalities, apparent solid nodule in right upper pole of right kidney, CT with contrast or MRII recommended. CT abdomen pelvis: Moderate size hiatal hernia with eccentric soft tissue thickening possibly related to hernia but could not exclude mass, recommended endoscopic or barium swallow to further assess. Solid mass right upper pole and right kidney possibly neoplastic. No evidence of SBO or acute pancreatitis. 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 Chest x-ray: No acute abnormalities. Unable to get beds in local hospital, transferred to [facility]. Anemia 10/24/2019 09/12/2021 Last Assessment & Plan: Assessment & PLAN: See above Renal cell carcinoma 10/24/2019 09/12/2021 Last Assessment & Plan: Currently following with urology (Dr. Wagner) outpatient for routine surveillance imaging MRI kidney on 07/11/19 noting stable 2.2 cm right renal mass No plans for surgical intervention at this time Diverticulitis of large inte farooq with perforation and abscess without bleeding 06/16/2019 09/12/2021 Other chest pain 03/27/2019 09/19/2020 Overview: 03/24/19 CTA chest/ thorax: 1. Small incompletely occluded PE 2nd and 3rd branch right upper lobe PA; 2. Stable cardiac enlargement; Moderate calcification aortic root with 4.5cm fusiform dilatation mid-ascending aorta; 3. Atherosclerotic calcifications with ostial stenosis celiac trunk, SMA, bilateral renal arteries; 4. Small dependent pleural effusions, larger on right, compressive atelectasis posterior lung bases. 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 On January 2014, she needed a mammogram, colonosocpy, and BMD, she want the colonoscopy in the fall. Last Assessment & Plan: She has an appointment for the colonoscopy initial eval coming up, BMD was normal, discussed with the patient. SUMMARY 12/09/2013 12/22/2018 Overview: Htn, HPL, diabetes uncontrolled with hypoglycemia, aortic bioprosthetic valve, on xeralto, with mitral and aortic valves regurgitating, needs Yearly, Echo. Skin cancer , recent excision, Next visit need to do all the preventive measures. PVD and Carotid artery details, endocervical cancer. need to be probed into, got this form her previous records, patient did not mention to us. Carotid artery disease 12/09/2013 2 Overview: Per her records Type 2 diabetes mellitus wit hout complication, without long-term current use of insulin 11/20/2013 09/12/2021 Overview: 2008; has been well controlled for a while. Metformin caused her diarrhea. Patient had her eyes examined in [place] this year and was told that she had no retinopathy. December 7.5, she has been running around that for the last couple years, didn't take careof he diabetes. Last Assessment & Plan: Last a1c 7.1 on 06/07/19 Not on any home meds at this time (intolerance to metformin in past) Hemoglobin A1C (%) Date Value 10/24/2019 7.0 Follow up with pcp for discussion on initiating therapy documented as of this encounter (statuses as of 12/13/2021) [facility]08-14-2021 History of Past illness Narrative* Problem Noted Date Resolved Date Encounter for support and coordination of transi tion of care 02/15/2021 09/12/2021 Overview: 02/13/[address] Ferguson's office following gallbladder ultrasound demonstrating sludge. Admitted to some black stools but not bloody. Patient had Hgb of 7.2, hem positive stool. Vital signs 98.1 F-79-17-131/42 98%. Exam nonacute. Abdomen nondistended with tender epigastric and right upper quadrant. WBC 9.7 RBC 2.49L Hgb 7.2L HCT 20 2.8L RDW 50 4.4H PLT 232 with normal differential. CMP notable for sodium 132L, BUN 30 7H, creatinine 1.6H with EGFR 30 2L. GLU 139H. Calcium 8.4L troponin was negative. UA was normal. Blood type is B+. Antibody screen negative. Gallbladder ultrasound: No acute abnormalities, apparent solid nodule in right upper pole of right kidney, CT with contrast or MRII recommended. CT abdomen pelvis: Moderate size hiatal hernia with eccentric soft tissue thickening possibly related to hernia but could not exclude mass, recommended endoscopic or barium swallow to further assess. Solid mass right upper pole and right kidney possibly neoplastic. No evidence of SBO or acute pancreatitis. 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 Chest x-ray: No acute abnormalities. Unable to get beds in local hospital, transferred to [facility]. Anemia 10/24/2019 09/12/2021 Last Assessment & Plan: Assessment & PLAN: See above Renal cell carcinoma 10/24/2019 09/12/2021 Last Assessment & Plan: Currently following with urology (Dr. Wagner) outpatient for routine surveillance imaging MRI kidney on 07/11/19 noting stable 2.2 cm right renal mass No plans for surgical intervention at this time Diverticulitis of large inte farooq with perforation and abscess without bleeding 06/16/2019 09/12/2021 Other chest pain 03/27/2019 09/19/2020 Overview: 03/24/19 CTA chest/ thorax: 1. Small incompletely occluded PE 2nd and 3rd branch right upper lobe PA; 2. Stable cardiac enlargement; Moderate calcification aortic root with 4.5cm fusiform dilatation mid-ascending aorta; 3. Atherosclerotic calcifications with ostial stenosis celiac trunk, SMA, bilateral renal arteries; 4. Small dependent pleural effusions, larger on right, compressive atelectasis posterior lung bases. 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 On January 2014, she needed a mammogram, colonosocpy, and BMD, she want the colonoscopy in the fall. Last Assessment & Plan: She has an appointment for the colonoscopy initial eval coming up, BMD was normal, discussed with the patient. SUMMARY 12/09/2013 12/22/2018 Overview: Htn, HPL, diabetes uncontrolled with hypoglycemia, aortic bioprosthetic valve, on xeralto, with mitral and aortic valves regurgitating, needs Yearly, Echo. Skin cancer , recent excision, Next visit need to do all the preventive measures. PVD and Carotid artery details, endocervical cancer. need to be probed into, got this form her previous records, patient did not mention to us. Carotid artery disease 12/09/2013 2 Overview: Per her records Type 2 diabetes mellitus wit hout complication, without long-term current use of insulin 11/20/2013 09/12/2021 Overview: 2008; has been well controlled for a while. Metformin caused her diarrhea. Patient had her eyes examined in [place] this year and was told that she had no retinopathy. December 09.5, she has been running around that for the last couple years, didn't take careof he diabetes. Last Assessment & Plan: Last a1c 7.1 on 06/07/19 Not on any home meds at this time (intolerance to metformin in past) Hemoglobin A1C (%) Date Value 10/24/2019 7.0 Follow up with pcp for discussion on initiating therapy documented as of this encounter (statuses as of 12/15/2021) [facility]08-14-2021 History of Past illness Narrative* Problem Noted Date Resolved Date Encounter for support and coordination of transi tion of care 02/15/2021 09/12/2021 Overview: 02/13/[address] Ferguson's office following gallbladder ultrasound demonstrating sludge. Admitted to some black stools but not bloody. Patient had Hgb of 7.2, hem positive stool. Vital signs 98.1 F-79-17-131/42 98%. Exam nonacute. Abdomen nondistended with tender epigastric and right upper quadrant. WBC 9.7 RBC 2.49L Hgb 7.2L HCT 20 2.8L RDW 50 4.4H PLT 232 with normal differential. CMP notable for sodium 132L, BUN 30 7H, creatinine 1.6H with EGFR 30 2L. GLU 139H. Calcium 8.4L troponin was negative. UA was normal. Blood type is B+. Antibody screen negative. Gallbladder ultrasound: No acute abnormalities, apparent solid nodule in right upper pole of right kidney, CT with contrast or MRII recommended. CT abdomen pelvis: Moderate size hiatal hernia with eccentric soft tissue thickening possibly related to hernia but could not exclude mass, recommended endoscopic or barium swallow to further assess. Solid mass right upper pole and right kidney possibly neoplastic. No evidence of SBO or acute pancreatitis. 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 Chest x-ray: No acute abnormalities. Unable to get beds in local hospital, transferred to [facility]. Anemia 10/24/2019 09/12/2021 Last Assessment & Plan: Assessment & PLAN: See above Renal cell carcinoma 10/24/2019 09/12/2021 Last Assessment & Plan: Currently following with urology (Dr. Wagner) outpatient for routine surveillance imaging MRI kidney on 07/11/19 noting stable 2.2 cm right renal mass No plans for surgical intervention at this time Diverticulitis of large inte farooq with perforation and abscess without bleeding 06/16/2019 09/12/2021 Other chest pain 03/27/2019 09/19/2020 Overview: 03/24/19 CTA chest/ thorax: 1. Small incompletely occluded PE 2nd and 3rd branch right upper lobe PA; 2. Stable cardiac enlargement; Moderate calcification aortic root with 4.5cm fusiform dilatation mid-ascending aorta; 3. Atherosclerotic calcifications with ostial stenosis celiac trunk, SMA, bilateral renal arteries; 4. Small dependent pleural effusions, larger on right, compressive atelectasis posterior lung bases. 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 On January 2014, she needed a mammogram, colonosocpy, and BMD, she want the colonoscopy in the fall. Last Assessment & Plan: She has an appointment for the colonoscopy initial eval coming up, BMD was normal, discussed with the patient. SUMMARY 12/09/2013 12/22/2018 Overview: Htn, HPL, diabetes uncontrolled with hypoglycemia, aortic bioprosthetic valve, on xeralto, with mitral and aortic valves regurgitating, needs Yearly, Echo. Skin cancer , recent excision, Next visit need to do all the preventive measures. PVD and Carotid artery details, endocervical cancer. need to be probed into, got this form her previous records, patient did not mention to us. Carotid artery disease 12/09/2013 Overview: Per her records Type 2 diabetes mellitus wit hout complication, without long-term current use of insulin 11/20/2013 09/12/2021 Overview: 2008; has been well controlled for a while. Metformin caused her diarrhea. Patient had her eyes examined in [place] this year and was told that she had no retinopathy. December 7.5, she has been running around that for the last couple years, didn't take careof he diabetes. Last Assessment & Plan: Last a1c 7.1 on 06/07/19 Not on any home meds at this time (intolerance to metformin in past) Hemoglobin A1C (%) Date Value 10/24/2019 7.0 Follow up with pcp for discussion on initiating therapy documented as of this encounter (statuses as of 12/25/2021) [facility]08-14-2021 History of Past illness Narrative* Problem Noted Date Resolved Date Encounter for support and coordination of transi tion of care 02/15/2021 09/12/2021 Overview: 02/13/[address] Ferguson's office following gallbladder ultrasound demonstrating sludge. Admitted to some black stools but not bloody. Patient had Hgb of 7.2, hem positive stool. Vital signs 98.1 F-79-17-131/42 98%. Exam nonacute. Abdomen nondistended with tender epigastric and right upper quadrant. WBC 9.7 RBC 2.49L Hgb 7.2L HCT 20 2.8L RDW 50 4.4H PLT 232 with normal differential. CMP notable for sodium 132L, BUN 30 7H, creatinine 1.6H with EGFR 30 2L. GLU 139H. Calcium 8.4L troponin was negative. UA was normal. Blood type is B+. Antibody screen negative. Gallbladder ultrasound: No acute abnormalities, apparent solid nodule in right upper pole of right kidney, CT with contrast or MRII recommended. CT abdomen pelvis: Moderate size hiatal hernia with eccentric soft tissue thickening possibly related to hernia but could not exclude mass, recommended endoscopic or barium swallow to further assess. Solid mass right upper pole and right kidney possibly neoplastic. No evidence of SBO or acute pancreatitis. 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 Chest x-ray: No acute abnormalities. Unable to get beds in local hospital, transferred to [facility]. Anemia 10/24/2019 09/12/2021 Last Assessment & Plan: Assessment & PLAN: See above Renal cell carcinoma 10/24/2019 09/12/2021 Last Assessment & Plan: Currently following with urology (Dr. Wagner) outpatient for routine surveillance imaging MRI kidney on 07/11/19 noting stable 2.2 cm right renal mass No plans for surgical intervention at this time Diverticulitis of large inte farooq with perforation and abscess without bleeding 06/16/2019 09/12/2021 Other chest pain 03/27/2019 09/19/2020 Overview: 03/24/19 CTA chest/ thorax: 1. Small incompletely occluded PE 2nd and 3rd branch right upper lobe PA; 2. Stable cardiac enlargement; Moderate calcification aortic root with 4.5cm fusiform dilatation mid-ascending aorta; 3. Atherosclerotic calcifications with ostial stenosis celiac trunk, SMA, bilateral renal arteries; 4. Small dependent pleural effusions, larger on right, compressive atelectasis posterior lung bases. 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 On January 2014, she needed a mammogram, colonosocpy, and BMD, she want the colonoscopy in the fall. Last Assessment & Plan: She has an appointment for the colonoscopy initial eval coming up, BMD was normal, discussed with the patient. SUMMARY 12/09/2013 12/22/2018 Overview: Htn, HPL, diabetes uncontrolled with hypoglycemia, aortic bioprosthetic valve, on xeralto, with mitral and aortic valves regurgitating, needs Yearly, Echo. Skin cancer , recent excision, Next visit need to do all the preventive measures. PVD and Carotid artery details, endocervical cancer. need to be probed into, got this form her previous records, patient did not mention to us. Carotid artery disease 12/09/2013 2 Overview: Per her records Type 2 diabetes mellitus wit hout complication, without long-term current use of insulin 11/20/2013 09/12/2021 Overview: 2008; has been well controlled for a while. Metformin caused her diarrhea. Patient had her eyes examined in [place] this year and was told that she had no retinopathy. December 7.5, she has been running around that for the last couple years, didn't take careof he diabetes. Last Assessment & Plan: Last a1c 7.1 on 06/07/19 Not on any home meds at this time (intolerance to metformin in past) Hemoglobin A1C (%) Date Value 10/24/2019 7.0 Follow up with pcp for discussion on initiating therapy documented as of this encounter (statuses as of 12/27/2021) [facility]08-14-2021 History of Past illness Narrative* Problem Noted Date Resolved Date Encounter for support and coordination of transi tion of care 02/15/2021 09/12/2021 Overview: 02/13/[address] Ferguson's office following gallbladder ultrasound demonstrating sludge. Admitted to some black stools but not bloody. Patient had Hgb of 7.2, hem positive stool. Vital signs 98.1 F-79-17-131/42 98%. Exam nonacute. Abdomen nondistended with tender epigastric and right upper quadrant. WBC 9.7 RBC 2.49L Hgb 7.2L HCT 20 2.8L RDW 50 4.4H PLT 232 with normal differential. CMP notable for sodium 132L, BUN 30 7H, creatinine 1.6H with EGFR 30 2L. GLU 139H. Calcium 8.4L troponin was negative. UA was normal. Blood type is B+. Antibody screen negative. Gallbladder ultrasound: No acute abnormalities, apparent solid nodule in right upper pole of right kidney, CT with contrast or MRII recommended. CT abdomen pelvis: Moderate size hiatal hernia with eccentric soft tissue thickening possibly related to hernia but could not exclude mass, recommended endoscopic or barium swallow to further assess. Solid mass right upper pole and right kidney possibly neoplastic. No evidence of SBO or acute pancreatitis. 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 Chest x-ray: No acute abnormalities. Unable to get beds in local hospital, transferred to [facility]. Anemia 10/24/2019 09/12/2021 Last Assessment & Plan: Assessment & PLAN: See above Renal cell carcinoma 10/24/2019 09/12/2021 Last Assessment & Plan: Currently following with urology (Dr. Wagner) outpatient for routine surveillance imaging MRI kidney on 07/11/19 noting stable 2.2 cm right renal mass No plans for surgical intervention at this time Diverticulitis of large inte farooq with perforation and abscess without bleeding 06/16/2019 09/12/2021 Other chest pain 03/27/2019 09/19/2020 Overview: 03/24/19 CTA chest/ thorax: 1. Small incompletely occluded PE 2nd and 3rd branch right upper lobe PA; 2. Stable cardiac enlargement; Moderate calcification aortic root with 4.5cm fusiform dilatation mid-ascending aorta; 3. Atherosclerotic calcifications with ostial stenosis celiac trunk, SMA, bilateral renal arteries; 4. Small dependent pleural effusions, larger on right, compressive atelectasis posterior lung bases. 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 On January 2014, she needed a mammogram, colonosocpy, and BMD, she want the colonoscopy in the fall. Last Assessment & Plan: She has an appointment for the colonoscopy initial eval coming up, BMD was normal, discussed with the patient. SUMMARY 12/09/2013 12/22/2018 Overview: Htn, HPL, diabetes uncontrolled with hypoglycemia, aortic bioprosthetic valve, on xeralto, with mitral and aortic valves regurgitating, needs Yearly, Echo. Skin cancer , recent excision, Next visit need to do all the preventive measures. PVD and Carotid artery details, endocervical cancer. need to be probed into, got this form her previous records, patient did not mention to us. Carotid artery disease 12/09/2013 2 Overview: Per her records Type 2 diabetes mellitus wit hout complication, without long-term current use of insulin 11/20/2013 09/12/2021 Overview: 2008; has been well controlled for a while. Metformin caused her diarrhea. Patient had her eyes examined in [place] this year and was told that she had no retinopathy. December 7.5, she has been running around that for the last couple years, didn't take careof he diabetes. Last Assessment & Plan: Last a1c 7.1 on 06/07/19 Not on any home meds at this time (intolerance to metformin in past) Hemoglobin A1C (%) Date Value 10/24/2019 7.0 Follow up with pcp for discussion on initiating therapy documented as of this encounter (statuses as of 12/27/2021) [facility]08-14-2021 History of Past illness Narrative* Problem Noted Date Resolved Date Encounter for support and coordination of transi tion of care 02/15/2021 09/12/2021 Overview: 02/13/[address] Ferguson's office following gallbladder ultrasound demonstrating sludge. Admitted to some black stools but not bloody. Patient had Hgb of 7.2, hem positive stool. Vital signs 98.1 F-79-17-131/42 98%. Exam nonacute. Abdomen nondistended with tender epigastric and right upper quadrant. WBC 9.7 RBC 2.49L Hgb 7.2L HCT 20 2.8L RDW 50 4.4H PLT 232 with normal differential. CMP notable for sodium 132L, BUN 30 7H, creatinine 1.6H with EGFR 30 2L. GLU 139H. Calcium 8.4L troponin was negative. UA was normal. Blood type is B+. Antibody screen negative. Gallbladder ultrasound: No acute abnormalities, apparent solid nodule in right upper pole of right kidney, CT with contrast or MRII recommended. CT abdomen pelvis: Moderate size hiatal hernia with eccentric soft tissue thickening possibly related to hernia but could not exclude mass, recommended endoscopic or barium swallow to further assess. Solid mass right upper pole and right kidney possibly neoplastic. No evidence of SBO or acute pancreatitis. 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 Chest x-ray: No acute abnormalities. Unable to get beds in local hospital, transferred to [facility]. Anemia 10/24/2019 09/12/2021 Last Assessment & Plan: Assessment & PLAN: See above Renal cell carcinoma 10/24/2019 09/12/2021 Last Assessment & Plan: Currently following with urology (Dr. Wagner) outpatient for routine surveillance imaging MRI kidney on 07/11/19 noting stable 2.2 cm right renal mass No plans for surgical intervention at this time Diverticulitis of large inte farooq with perforation and abscess without bleeding 06/16/2019 09/12/2021 Other chest pain 03/27/2019 09/19/2020 Overview: 03/24/19 CTA chest/ thorax: 1. Small incompletely occluded PE 2nd and 3rd branch right upper lobe PA; 2. Stable cardiac enlargement; Moderate calcification aortic root with 4.5cm fusiform dilatation mid-ascending aorta; 3. Atherosclerotic calcifications with ostial stenosis celiac trunk, SMA, bilateral renal arteries; 4. Small dependent pleural effusions, larger on right, compressive atelectasis posterior lung bases. 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 On January 2014, she needed a mammogram, colonosocpy, and BMD, she want the colonoscopy in the fall. Last Assessment & Plan: She has an appointment for the colonoscopy initial eval coming up, BMD was normal, discussed with the patient. SUMMARY 12/09/2013 12/22/2018 Overview: Htn, HPL, diabetes uncontrolled with hypoglycemia, aortic bioprosthetic valve, on xeralto, with mitral and aortic valves regurgitating, needs Yearly, Echo. Skin cancer , recent excision, Next visit need to do all the preventive measures. PVD and Carotid artery details, endocervical cancer. need to be probed into, got this form her previous records, patient did not mention to us. Carotid artery disease 12/09/2013 Overview: Per her records Type 2 diabetes mellitus wit hout complication, without long-term current use of insulin 11/20/2013 09/12/2021 Overview: 2008; has been well controlled for a while. Metformin caused her diarrhea. Patient had her eyes examined in [place] this year and was told that she had no retinopathy. December 7.5, she has been running around that for the last couple years, didn't take careof he diabetes. Last Assessment & Plan: Last a1c 7.1 on 06/07/19 Not on any home meds at this time (intolerance to metformin in past) Hemoglobin A1C (%) Date Value 10/24/2019 7.0 Follow up with pcp for discussion on initiating therapy documented as of this encounter (statuses as of 12/29/2021) [facility]08-14-2021 History of Past illness Narrative* Problem Noted Date Resolved Date Encounter for support and coordination of transi tion of care 02/15/2021 09/12/2021 Overview: 02/13/[address] Ferguson's office following gallbladder ultrasound demonstrating sludge. Admitted to some black stools but not bloody. Patient had Hgb of 7.2, hem positive stool. Vital signs 98.1 F-79-17-131/42 98%. Exam nonacute. Abdomen nondistended with tender epigastric and right upper quadrant. WBC 9.7 RBC 2.49L Hgb 7.2L HCT 20 2.8L RDW 50 4.4H PLT 232 with normal differential. CMP notable for sodium 132L, BUN 30 7H, creatinine 1.6H with EGFR 30 2L. GLU 139H. Calcium 8.4L troponin was negative. UA was normal. Blood type is B+. Antibody screen negative. Gallbladder ultrasound: No acute abnormalities, apparent solid nodule in right upper pole of right kidney, CT with contrast or MRII recommended. CT abdomen pelvis: Moderate size hiatal hernia with eccentric soft tissue thickening possibly related to hernia but could not exclude mass, recommended endoscopic or barium swallow to further assess. Solid mass right upper pole and right kidney possibly neoplastic. No evidence of SBO or acute pancreatitis. 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 Chest x-ray: No acute abnormalities. Unable to get beds in local hospital, transferred to [facility]. Anemia 10/24/2019 09/12/2021 Last Assessment & Plan: Assessment & PLAN: See above Renal cell carcinoma 10/24/2019 09/12/2021 Last Assessment & Plan: Currently following with urology (Dr. Wagner) outpatient for routine surveillance imaging MRI kidney on 07/11/19 noting stable 2.2 cm right renal mass No plans for surgical intervention at this time Diverticulitis of large inte farooq with perforation and abscess without bleeding 06/16/2019 09/12/2021 Other chest pain 03/27/2019 09/19/2020 Overview: 03/24/19 CTA chest/ thorax: 1. Small incompletely occluded PE 2nd and 3rd branch right upper lobe PA; 2. Stable cardiac enlargement; Moderate calcification aortic root with 4.5cm fusiform dilatation mid-ascending aorta; 3. Atherosclerotic calcifications with ostial stenosis celiac trunk, SMA, bilateral renal arteries; 4. Small dependent pleural effusions, larger on right, compressive atelectasis posterior lung bases. 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 On January 2014, she needed a mammogram, colonosocpy, and BMD, she want the colonoscopy in the fall. Last Assessment & Plan: She has an appointment for the colonoscopy initial eval coming up, BMD was normal, discussed with the patient. SUMMARY 12/09/2013 12/22/2018 Overview: Htn, HPL, diabetes uncontrolled with hypoglycemia, aortic bioprosthetic valve, on xeralto, with mitral and aortic valves regurgitating, needs Yearly, Echo. Skin cancer , recent excision, Next visit need to do all the preventive measures. PVD and Carotid artery details, endocervical cancer. need to be probed into, got this form her previous records, patient did not mention to us. Carotid artery disease 12/09/2013 2 Overview: Per her records Type 2 diabetes mellitus wit hout complication, without long-term current use of insulin 11/20/2013 09/12/2021 Overview: 2008; has been well controlled for a while. Metformin caused her diarrhea. Patient had her eyes examined in [place] this year and was told that she had no retinopathy. December 09.5, she has been running around that for the last couple years, didn't take careof he diabetes. Last Assessment & Plan: Last a1c 7.1 on 06/07/19 Not on any home meds at this time (intolerance to metformin in past) Hemoglobin A1C (%) Date Value 10/24/2019 7.0 Follow up with pcp for discussion on initiating therapy documented as of this encounter (statuses as of 01/01/2022) [facility]08-14-2021 History of Past illness Narrative* Problem Noted Date Resolved Date Encounter for support and coordination of transi tion of care 02/15/2021 09/12/2021 Overview: 02/13/[address] Ferguson's office following gallbladder ultrasound demonstrating sludge. Admitted to some black stools but not bloody. Patient had Hgb of 7.2, hem positive stool. Vital signs 98.1 F-79-17-131/42 98%. Exam nonacute. Abdomen nondistended with tender epigastric and right upper quadrant. WBC 9.7 RBC 2.49L Hgb 7.2L HCT 20 2.8L RDW 50 4.4H PLT 232 with normal differential. CMP notable for sodium 132L, BUN 30 7H, creatinine 1.6H with EGFR 30 2L. GLU 139H. Calcium 8.4L troponin was negative. UA was normal. Blood type is B+. Antibody screen negative. Gallbladder ultrasound: No acute abnormalities, apparent solid nodule in right upper pole of right kidney, CT with contrast or MRII recommended. CT abdomen pelvis: Moderate size hiatal hernia with eccentric soft tissue thickening possibly related to hernia but could not exclude mass, recommended endoscopic or barium swallow to further assess. Solid mass right upper pole and right kidney possibly neoplastic. No evidence of SBO or acute pancreatitis. 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 Chest x-ray: No acute abnormalities. Unable to get beds in local hospital, transferred to [facility]. Anemia 10/24/2019 09/12/2021 Last Assessment & Plan: Assessment & PLAN: See above Renal cell carcinoma 10/24/2019 09/12/2021 Last Assessment & Plan: Currently following with urology (Dr. Wagner) outpatient for routine surveillance imaging MRI kidney on 07/11/19 noting stable 2.2 cm right renal mass No plans for surgical intervention at this time Diverticulitis of large inte farooq with perforation and abscess without bleeding 06/16/2019 09/12/2021 Other chest pain 03/27/2019 09/19/2020 Overview: 03/24/19 CTA chest/ thorax: 1. Small incompletely occluded PE 2nd and 3rd branch right upper lobe PA; 2. Stable cardiac enlargement; Moderate calcification aortic root with 4.5cm fusiform dilatation mid-ascending aorta; 3. Atherosclerotic calcifications with ostial stenosis celiac trunk, SMA, bilateral renal arteries; 4. Small dependent pleural effusions, larger on right, compressive atelectasis posterior lung bases. 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 On January 2014, she needed a mammogram, colonosocpy, and BMD, she want the colonoscopy in the fall. Last Assessment & Plan: She has an appointment for the colonoscopy initial eval coming up, BMD was normal, discussed with the patient. SUMMARY 12/09/2013 12/22/2018 Overview: Htn, HPL, diabetes uncontrolled with hypoglycemia, aortic bioprosthetic valve, on xeralto, with mitral and aortic valves regurgitating, needs Yearly, Echo. Skin cancer , recent excision, Next visit need to do all the preventive measures. PVD and Carotid artery details, endocervical cancer. need to be probed into, got this form her previous records, patient did not mention to us. Carotid artery disease 12/09/2013 Overview: Per her records Type 2 diabetes mellitus wit hout complication, without long-term current use of insulin 11/20/2013 09/12/2021 Overview: 2008; has been well controlled for a while. Metformin caused her diarrhea. Patient had her eyes examined in [place] this year and was told that she had no retinopathy. December 09., she has been running around that for the last couple years, didn't take careof he diabetes. Last Assessment & Plan: Last a1c 7.1 on 06/07/19 Not on any home meds at this time (intolerance to metformin in past) Hemoglobin A1C (%) Date Value 10/24/2019 7.0 Follow up with pcp for discussion on initiating therapy documented as of this encounter (statuses as of 01/03/2022) [facility]08-14-2021 History of Past illness Narrative* Problem Noted Date Resolved Date Encounter for support and coordination of transi tion of care 02/15/2021 09/12/2021 Overview: 02/13/[address] Ferguson's office following gallbladder ultrasound demonstrating sludge. Admitted to some black stools but not bloody. Patient had Hgb of 7.2, hem positive stool. Vital signs 98.1 F-79-17-131/42 98%. Exam nonacute. Abdomen nondistended with tender epigastric and right upper quadrant. WBC 9.7 RBC 2.49L Hgb 7.2L HCT 20 2.8L RDW 50 4.4H PLT 232 with normal differential. CMP notable for sodium 132L, BUN 30 7H, creatinine 1.6H with EGFR 30 2L. GLU 139H. Calcium 8.4L troponin was negative. UA was normal. Blood type is B+. Antibody screen negative. Gallbladder ultrasound: No acute abnormalities, apparent solid nodule in right upper pole of right kidney, CT with contrast or MRII recommended. CT abdomen pelvis: Moderate size hiatal hernia with eccentric soft tissue thickening possibly related to hernia but could not exclude mass, recommended endoscopic or barium swallow to further assess. Solid mass right upper pole and right kidney possibly neoplastic. No evidence of SBO or acute pancreatitis. 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 Chest x-ray: No acute abnormalities. Unable to get beds in local hospital, transferred to [facility]. Anemia 10/24/2019 09/12/2021 Last Assessment & Plan: Assessment & PLAN: See above Renal cell carcinoma 10/24/2019 09/12/2021 Last Assessment & Plan: Currently following with urology (Dr. Wagner) outpatient for routine surveillance imaging MRI kidney on 07/11/19 noting stable 2.2 cm right renal mass No plans for surgical intervention at this time Diverticulitis of large inte farooq with perforation and abscess without bleeding 06/16/2019 09/12/2021 Other chest pain 03/27/2019 09/19/2020 Overview: 03/24/19 CTA chest/ thorax: 1. Small incompletely occluded PE 2nd and 3rd branch right upper lobe PA; 2. Stable cardiac enlargement; Moderate calcification aortic root with 4.5cm fusiform dilatation mid-ascending aorta; 3. Atherosclerotic calcifications with ostial stenosis celiac trunk, SMA, bilateral renal arteries; 4. Small dependent pleural effusions, larger on right, compressive atelectasis posterior lung bases. 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 On January 2014, she needed a mammogram, colonosocpy, and BMD, she want the colonoscopy in the fall. Last Assessment & Plan: She has an appointment for the colonoscopy initial eval coming up, BMD was normal, discussed with the patient. SUMMARY 12/09/2013 12/22/2018 Overview: Htn, HPL, diabetes uncontrolled with hypoglycemia, aortic bioprosthetic valve, on xeralto, with mitral and aortic valves regurgitating, needs Yearly, Echo. Skin cancer , recent excision, Next visit need to do all the preventive measures. PVD and Carotid artery details, endocervical cancer. need to be probed into, got this form her previous records, patient did not mention to us. Carotid artery disease 12/09/2013 2 Overview: Per her records Type 2 diabetes mellitus wit hout complication, without long-term current use of insulin 11/20/2013 09/12/2021 Overview: 2008; has been well controlled for a while. Metformin caused her diarrhea. Patient had her eyes examined in [place] this year and was told that she had no retinopathy. December 7.5, she has been running around that for the last couple years, didn't take careof he diabetes. Last Assessment & Plan: Last a1c 7.1 on 06/07/19 Not on any home meds at this time (intolerance to metformin in past) Hemoglobin A1C (%) Date Value 10/24/2019 7.0 Follow up with pcp for discussion on initiating therapy documented as of this encounter (statuses as of 01/07/2022) [facility]08-14-2021 History of Past illness Narrative* Problem Noted Date Resolved Date Encounter for support and coordination of transi tion of care 02/15/2021 09/12/2021 Overview: 02/13/[address] Ferguson's office following gallbladder ultrasound demonstrating sludge. Admitted to some black stools but not bloody. Patient had Hgb of 7.2, hem positive stool. Vital signs 98.1 F-79-17-131/42 98%. Exam nonacute. Abdomen nondistended with tender epigastric and right upper quadrant. WBC 9.7 RBC 2.49L Hgb 7.2L HCT 20 2.8L RDW 50 4.4H PLT 232 with normal differential. CMP notable for sodium 132L, BUN 30 7H, creatinine 1.6H with EGFR 30 2L. GLU 139H. Calcium 8.4L troponin was negative. UA was normal. Blood type is B+. Antibody screen negative. Gallbladder ultrasound: No acute abnormalities, apparent solid nodule in right upper pole of right kidney, CT with contrast or MRII recommended. CT abdomen pelvis: Moderate size hiatal hernia with eccentric soft tissue thickening possibly related to hernia but could not exclude mass, recommended endoscopic or barium swallow to further assess. Solid mass right upper pole and right kidney possibly neoplastic. No evidence of SBO or acute pancreatitis. 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 Chest x-ray: No acute abnormalities. Unable to get beds in local hospital, transferred to [facility]. Anemia 10/24/2019 09/12/2021 Last Assessment & Plan: Assessment & PLAN: See above Renal cell carcinoma 10/24/2019 09/12/2021 Last Assessment & Plan: Currently following with urology (Dr. Wagner) outpatient for routine surveillance imaging MRI kidney on 07/11/19 noting stable 2.2 cm right renal mass No plans for surgical intervention at this time Diverticulitis of large inte farooq with perforation and abscess without bleeding 06/16/2019 09/12/2021 Other chest pain 03/27/2019 09/19/2020 Overview: 03/24/19 CTA chest/ thorax: 1. Small incompletely occluded PE 2nd and 3rd branch right upper lobe PA; 2. Stable cardiac enlargement; Moderate calcification aortic root with 4.5cm fusiform dilatation mid-ascending aorta; 3. Atherosclerotic calcifications with ostial stenosis celiac trunk, SMA, bilateral renal arteries; 4. Small dependent pleural effusions, larger on right, compressive atelectasis posterior lung bases. 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 On January 2014, she needed a mammogram, colonosocpy, and BMD, she want the colonoscopy in the fall. Last Assessment & Plan: She has an appointment for the colonoscopy initial eval coming up, BMD was normal, discussed with the patient. SUMMARY 12/09/2013 12/22/2018 Overview: Htn, HPL, diabetes uncontrolled with hypoglycemia, aortic bioprosthetic valve, on xeralto, with mitral and aortic valves regurgitating, needs Yearly, Echo. Skin cancer , recent excision, Next visit need to do all the preventive measures. PVD and Carotid artery details, endocervical cancer. need to be probed into, got this form her previous records, patient did not mention to us. Carotid artery disease 12/09/2013 Overview: Per her records Type 2 diabetes mellitus wit hout complication, without long-term current use of insulin 11/20/2013 09/12/2021 Overview: 2008; has been well controlled for a while. Metformin caused her diarrhea. Patient had her eyes examined in [place] this year and was told that she had no retinopathy. December 7.5, she has been running around that for the last couple years, didn't take careof he diabetes. Last Assessment & Plan: Last a1c 7.1 on 06/07/19 Not on any home meds at this time (intolerance to metformin in past) Hemoglobin A1C (%) Date Value 10/24/2019 7.0 Follow up with pcp for discussion on initiating therapy documented as of this encounter (statuses as of 01/09/2022) [facility]08-14-2021 History of Past illness Narrative* Problem Noted Date Resolved Date Encounter for support and coordination of transi tion of care 02/15/2021 09/12/2021 Overview: 02/13/[address] Ferguson's office following gallbladder ultrasound demonstrating sludge. Admitted to some black stools but not bloody. Patient had Hgb of 7.2, hem positive stool. Vital signs 98.1 F-79-17-131/42 98%. Exam nonacute. Abdomen nondistended with tender epigastric and right upper quadrant. WBC 9.7 RBC 2.49L Hgb 7.2L HCT 20 2.8L RDW 50 4.4H PLT 232 with normal differential. CMP notable for sodium 132L, BUN 30 7H, creatinine 1.6H with EGFR 30 2L. GLU 139H. Calcium 8.4L troponin was negative. UA was normal. Blood type is B+. Antibody screen negative. Gallbladder ultrasound: No acute abnormalities, apparent solid nodule in right upper pole of right kidney, CT with contrast or MRII recommended. CT abdomen pelvis: Moderate size hiatal hernia with eccentric soft tissue thickening possibly related to hernia but could not exclude mass, recommended endoscopic or barium swallow to further assess. Solid mass right upper pole and right kidney possibly neoplastic. No evidence of SBO or acute pancreatitis. 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 Chest x-ray: No acute abnormalities. Unable to get beds in local hospital, transferred to [facility]. Anemia 10/24/2019 09/12/2021 Last Assessment & Plan: Assessment & PLAN: See above Renal cell carcinoma 10/24/2019 09/12/2021 Last Assessment & Plan: Currently following with urology (Dr. Wagner) outpatient for routine surveillance imaging MRI kidney on 07/11/19 noting stable 2.2 cm right renal mass No plans for surgical intervention at this time Diverticulitis of large inte farooq with perforation and abscess without bleeding 06/16/2019 09/12/2021 Other chest pain 03/27/2019 09/19/2020 Overview: 03/24/19 CTA chest/ thorax: 1. Small incompletely occluded PE 2nd and 3rd branch right upper lobe PA; 2. Stable cardiac enlargement; Moderate calcification aortic root with 4.5cm fusiform dilatation mid-ascending aorta; 3. Atherosclerotic calcifications with ostial stenosis celiac trunk, SMA, bilateral renal arteries; 4. Small dependent pleural effusions, larger on right, compressive atelectasis posterior lung bases. 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 On January 2014, she needed a mammogram, colonosocpy, and BMD, she want the colonoscopy in the fall. Last Assessment & Plan: She has an appointment for the colonoscopy initial eval coming up, BMD was normal, discussed with the patient. SUMMARY 12/09/2013 12/22/2018 Overview: Htn, HPL, diabetes uncontrolled with hypoglycemia, aortic bioprosthetic valve, on xeralto, with mitral and aortic valves regurgitating, needs Yearly, Echo. Skin cancer , recent excision, Next visit need to do all the preventive measures. PVD and Carotid artery details, endocervical cancer. need to be probed into, got this form her previous records, patient did not mention to us. Carotid artery disease 12/09/2013 Overview: Per her records Type 2 diabetes mellitus wit hout complication, without long-term current use of insulin 11/20/2013 09/12/2021 Overview: 2008; has been well controlled for a while. Metformin caused her diarrhea. Patient had her eyes examined in [place] this year and was told that she had no retinopathy. December 7.5, she has been running around that for the last couple years, didn't take careof he diabetes. Last Assessment & Plan: Last a1c 7.1 on 06/07/19 Not on any home meds at this time (intolerance to metformin in past) Hemoglobin A1C (%) Date Value 10/24/2019 7.0 Follow up with pcp for discussion on initiating therapy documented as of this encounter (statuses as of 01/09/2022) [facility]08-14-2021 History of Past illness Narrative* Problem Noted Date Resolved Date Encounter for support and coordination of transi tion of care 02/15/2021 09/12/2021 Overview: 02/13/[address] Ferguson's office following gallbladder ultrasound demonstrating sludge. Admitted to some black stools but not bloody. Patient had Hgb of 7.2, hem positive stool. Vital signs 98.1 F-79-17-131/42 98%. Exam nonacute. Abdomen nondistended with tender epigastric and right upper quadrant. WBC 9.7 RBC 2.49L Hgb 7.2L HCT 20 2.8L RDW 50 4.4H PLT 232 with normal differential. CMP notable for sodium 132L, BUN 30 7H, creatinine 1.6H with EGFR 30 2L. GLU 139H. Calcium 8.4L troponin was negative. UA was normal. Blood type is B+. Antibody screen negative. Gallbladder ultrasound: No acute abnormalities, apparent solid nodule in right upper pole of right kidney, CT with contrast or MRII recommended. CT abdomen pelvis: Moderate size hiatal hernia with eccentric soft tissue thickening possibly related to hernia but could not exclude mass, recommended endoscopic or barium swallow to further assess. Solid mass right upper pole and right kidney possibly neoplastic. No evidence of SBO or acute pancreatitis. 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 Chest x-ray: No acute abnormalities. Unable to get beds in local hospital, transferred to [facility]. Anemia 10/24/2019 09/12/2021 Last Assessment & Plan: Assessment & PLAN: See above Renal cell carcinoma 10/24/2019 09/12/2021 Last Assessment & Plan: Currently following with urology (Dr. Wagner) outpatient for routine surveillance imaging MRI kidney on 07/11/19 noting stable 2.2 cm right renal mass No plans for surgical intervention at this time Diverticulitis of large inte farooq with perforation and abscess without bleeding 06/16/2019 09/12/2021 Other chest pain 03/27/2019 09/19/2020 Overview: 03/24/19 CTA chest/ thorax: 1. Small incompletely occluded PE 2nd and 3rd branch right upper lobe PA; 2. Stable cardiac enlargement; Moderate calcification aortic root with 4.5cm fusiform dilatation mid-ascending aorta; 3. Atherosclerotic calcifications with ostial stenosis celiac trunk, SMA, bilateral renal arteries; 4. Small dependent pleural effusions, larger on right, compressive atelectasis posterior lung bases. 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 On January 2014, she needed a mammogram, colonosocpy, and BMD, she want the colonoscopy in the fall. Last Assessment & Plan: She has an appointment for the colonoscopy initial eval coming up, BMD was normal, discussed with the patient. SUMMARY 12/09/2013 12/22/2018 Overview: Htn, HPL, diabetes uncontrolled with hypoglycemia, aortic bioprosthetic valve, on xeralto, with mitral and aortic valves regurgitating, needs Yearly, Echo. Skin cancer , recent excision, Next visit need to do all the preventive measures. PVD and Carotid artery details, endocervical cancer. need to be probed into, got this form her previous records, patient did not mention to us. Carotid artery disease 12/09/2013 Overview: Per her records Type 2 diabetes mellitus wit hout complication, without long-term current use of insulin 11/20/2013 09/12/2021 Overview: 2008; has been well controlled for a while. Metformin caused her diarrhea. Patient had her eyes examined in [place] this year and was told that she had no retinopathy. December 09.5, she has been running around that for the last couple years, didn't take careof he diabetes. Last Assessment & Plan: Last a1c 7.1 on 06/07/19 Not on any home meds at this time (intolerance to metformin in past) Hemoglobin A1C (%) Date Value 10/24/2019 7.0 Follow up with pcp for discussion on initiating therapy documented as of this encounter (statuses as of 01/10/2022) [facility]08-14-2021 History of Past illness Narrative* Problem Noted Date Resolved Date Encounter for support and coordination of transi tion of care 02/15/2021 09/12/2021 Overview: 02/13/[address] Ferguson's office following gallbladder ultrasound demonstrating sludge. Admitted to some black stools but not bloody. Patient had Hgb of 7.2, hem positive stool. Vital signs 98.1 F-79-17-131/42 98%. Exam nonacute. Abdomen nondistended with tender epigastric and right upper quadrant. WBC 9.7 RBC 2.49L Hgb 7.2L HCT 20 2.8L RDW 50 4.4H PLT 232 with normal differential. CMP notable for sodium 132L, BUN 30 7H, creatinine 1.6H with EGFR 30 2L. GLU 139H. Calcium 8.4L troponin was negative. UA was normal. Blood type is B+. Antibody screen negative. Gallbladder ultrasound: No acute abnormalities, apparent solid nodule in right upper pole of right kidney, CT with contrast or MRII recommended. CT abdomen pelvis: Moderate size hiatal hernia with eccentric soft tissue thickening possibly related to hernia but could not exclude mass, recommended endoscopic or barium swallow to further assess. Solid mass right upper pole and right kidney possibly neoplastic. No evidence of SBO or acute pancreatitis. 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 Chest x-ray: No acute abnormalities. Unable to get beds in local hospital, transferred to [facility]. Anemia 10/24/2019 09/12/2021 Last Assessment & Plan: Assessment & PLAN: See above Renal cell carcinoma 10/24/2019 09/12/2021 Last Assessment & Plan: Currently following with urology (Dr. Wagner) outpatient for routine surveillance imaging MRI kidney on 07/11/19 noting stable 2.2 cm right renal mass No plans for surgical intervention at this time Diverticulitis of large inte farooq with perforation and abscess without bleeding 06/16/2019 09/12/2021 Other chest pain 03/27/2019 09/19/2020 Overview: 03/24/19 CTA chest/ thorax: 1. Small incompletely occluded PE 2nd and 3rd branch right upper lobe PA; 2. Stable cardiac enlargement; Moderate calcification aortic root with 4.5cm fusiform dilatation mid-ascending aorta; 3. Atherosclerotic calcifications with ostial stenosis celiac trunk, SMA, bilateral renal arteries; 4. Small dependent pleural effusions, larger on right, compressive atelectasis posterior lung bases. 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 On January 2014, she needed a mammogram, colonosocpy, and BMD, she want the colonoscopy in the fall. Last Assessment & Plan: She has an appointment for the colonoscopy initial eval coming up, BMD was normal, discussed with the patient. SUMMARY 12/09/2013 12/22/2018 Overview: Htn, HPL, diabetes uncontrolled with hypoglycemia, aortic bioprosthetic valve, on xeralto, with mitral and aortic valves regurgitating, needs Yearly, Echo. Skin cancer , recent excision, Next visit need to do all the preventive measures. PVD and Carotid artery details, endocervical cancer. need to be probed into, got this form her previous records, patient did not mention to us. Carotid artery disease 12/09/2013 2 Overview: Per her records Type 2 diabetes mellitus wit hout complication, without long-term current use of insulin 11/20/2013 09/12/2021 Overview: 2008; has been well controlled for a while. Metformin caused her diarrhea. Patient had her eyes examined in [place] this year and was told that she had no retinopathy. December 09.5, she has been running around that for the last couple years, didn't take careof he diabetes. Last Assessment & Plan: Last a1c 7.1 on 06/07/19 Not on any home meds at this time (intolerance to metformin in past) Hemoglobin A1C (%) Date Value 10/24/2019 7.0 Follow up with pcp for discussion on initiating therapy documented as of this encounter (statuses as of 01/15/2022) [facility]08-14-2021 History of Past illness Narrative* Problem Noted Date Resolved Date Encounter for support and coordination of transi tion of care 02/15/2021 09/12/2021 Overview: 02/13/[address] Ferguson's office following gallbladder ultrasound demonstrating sludge. Admitted to some black stools but not bloody. Patient had Hgb of 7.2, hem positive stool. Vital signs 98.1 F-79-17-131/42 98%. Exam nonacute. Abdomen nondistended with tender epigastric and right upper quadrant. WBC 9.7 RBC 2.49L Hgb 7.2L HCT 20 2.8L RDW 50 4.4H PLT 232 with normal differential. CMP notable for sodium 132L, BUN 30 7H, creatinine 1.6H with EGFR 30 2L. GLU 139H. Calcium 8.4L troponin was negative. UA was normal. Blood type is B+. Antibody screen negative. Gallbladder ultrasound: No acute abnormalities, apparent solid nodule in right upper pole of right kidney, CT with contrast or MRII recommended. CT abdomen pelvis: Moderate size hiatal hernia with eccentric soft tissue thickening possibly related to hernia but could not exclude mass, recommended endoscopic or barium swallow to further assess. Solid mass right upper pole and right kidney possibly neoplastic. No evidence of SBO or acute pancreatitis. 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 Chest x-ray: No acute abnormalities. Unable to get beds in local hospital, transferred to [facility]. Anemia 10/24/2019 09/12/2021 Last Assessment & Plan: Assessment & PLAN: See above Renal cell carcinoma 10/24/2019 09/12/2021 Last Assessment & Plan: Currently following with urology (Dr. Wagner) outpatient for routine surveillance imaging MRI kidney on 07/11/19 noting stable 2.2 cm right renal mass No plans for surgical intervention at this time Diverticulitis of large inte farooq with perforation and abscess without bleeding 06/16/2019 09/12/2021 Other chest pain 03/27/2019 09/19/2020 Overview: 03/24/19 CTA chest/ thorax: 1. Small incompletely occluded PE 2nd and 3rd branch right upper lobe PA; 2. Stable cardiac enlargement; Moderate calcification aortic root with 4.5cm fusiform dilatation mid-ascending aorta; 3. Atherosclerotic calcifications with ostial stenosis celiac trunk, SMA, bilateral renal arteries; 4. Small dependent pleural effusions, larger on right, compressive atelectasis posterior lung bases. 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 On January 2014, she needed a mammogram, colonosocpy, and BMD, she want the colonoscopy in the fall. Last Assessment & Plan: She has an appointment for the colonoscopy initial eval coming up, BMD was normal, discussed with the patient. SUMMARY 12/09/2013 12/22/2018 Overview: Htn, HPL, diabetes uncontrolled with hypoglycemia, aortic bioprosthetic valve, on xeralto, with mitral and aortic valves regurgitating, needs Yearly, Echo. Skin cancer , recent excision, Next visit need to do all the preventive measures. PVD and Carotid artery details, endocervical cancer. need to be probed into, got this form her previous records, patient did not mention to us. Carotid artery disease 12/09/2013 2 Overview: Per her records Type 2 diabetes mellitus wit hout complication, without long-term current use of insulin 11/20/2013 09/12/2021 Overview: 2008; has been well controlled for a while. Metformin caused her diarrhea. Patient had her eyes examined in [place] this year and was told that she had no retinopathy. December 7.5, she has been running around that for the last couple years, didn't take careof he diabetes. Last Assessment & Plan: Last a1c 7.1 on 06/07/19 Not on any home meds at this time (intolerance to metformin in past) Hemoglobin A1C (%) Date Value 10/24/2019 7.0 Follow up with pcp for discussion on initiating therapy documented as of this encounter (statuses as of 01/16/2022) [facility]08-14-2021 History of Past illness Narrative* Problem Noted Date Resolved Date Encounter for support and coordination of transi tion of care 02/15/2021 09/12/2021 Overview: 02/13/[address] Ferguson's office following gallbladder ultrasound demonstrating sludge. Admitted to some black stools but not bloody. Patient had Hgb of 7.2, hem positive stool. Vital signs 98.1 F-79-17-131/42 98%. Exam nonacute. Abdomen nondistended with tender epigastric and right upper quadrant. WBC 9.7 RBC 2.49L Hgb 7.2L HCT 20 2.8L RDW 50 4.4H PLT 232 with normal differential. CMP notable for sodium 132L, BUN 30 7H, creatinine 1.6H with EGFR 30 2L. GLU 139H. Calcium 8.4L troponin was negative. UA was normal. Blood type is B+. Antibody screen negative. Gallbladder ultrasound: No acute abnormalities, apparent solid nodule in right upper pole of right kidney, CT with contrast or MRII recommended. CT abdomen pelvis: Moderate size hiatal hernia with eccentric soft tissue thickening possibly related to hernia but could not exclude mass, recommended endoscopic or barium swallow to further assess. Solid mass right upper pole and right kidney possibly neoplastic. No evidence of SBO or acute pancreatitis. 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 Chest x-ray: No acute abnormalities. Unable to get beds in local hospital, transferred to [facility]. Anemia 10/24/2019 09/12/2021 Last Assessment & Plan: Assessment & PLAN: See above Renal cell carcinoma 10/24/2019 09/12/2021 Last Assessment & Plan: Currently following with urology (Dr. Wagner) outpatient for routine surveillance imaging MRI kidney on 07/11/19 noting stable 2.2 cm right renal mass No plans for surgical intervention at this time Diverticulitis of large inte farooq with perforation and abscess without bleeding 06/16/2019 09/12/2021 Other chest pain 03/27/2019 09/19/2020 Overview: 03/24/19 CTA chest/ thorax: 1. Small incompletely occluded PE 2nd and 3rd branch right upper lobe PA; 2. Stable cardiac enlargement; Moderate calcification aortic root with 4.5cm fusiform dilatation mid-ascending aorta; 3. Atherosclerotic calcifications with ostial stenosis celiac trunk, SMA, bilateral renal arteries; 4. Small dependent pleural effusions, larger on right, compressive atelectasis posterior lung bases. 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 On January 2014, she needed a mammogram, colonosocpy, and BMD, she want the colonoscopy in the fall. Last Assessment & Plan: She has an appointment for the colonoscopy initial eval coming up, BMD was normal, discussed with the patient. SUMMARY 12/09/2013 12/22/2018 Overview: Htn, HPL, diabetes uncontrolled with hypoglycemia, aortic bioprosthetic valve, on xeralto, with mitral and aortic valves regurgitating, needs Yearly, Echo. Skin cancer , recent excision, Next visit need to do all the preventive measures. PVD and Carotid artery details, endocervical cancer. need to be probed into, got this form her previous records, patient did not mention to us. Carotid artery disease 12/09/2013 Overview: Per her records Type 2 diabetes mellitus wit hout complication, without long-term current use of insulin 11/20/2013 09/12/2021 Overview: 2008; has been well controlled for a while. Metformin caused her diarrhea. Patient had her eyes examined in [place] this year and was told that she had no retinopathy. December 7.5, she has been running around that for the last couple years, didn't take careof he diabetes. Last Assessment & Plan: Last a1c 7.1 on 06/07/19 Not on any home meds at this time (intolerance to metformin in past) Hemoglobin A1C (%) Date Value 10/24/2019 7.0 Follow up with pcp for discussion on initiating therapy documented as of this encounter (statuses as of 01/20/2022) [facility]08-14-2021 History of Past illness Narrative* Problem Noted Date Resolved Date Encounter for support and coordination of transi tion of care 02/15/2021 09/12/2021 Overview: 02/13/[address] Ferguson's office following gallbladder ultrasound demonstrating sludge. Admitted to some black stools but not bloody. Patient had Hgb of 7.2, hem positive stool. Vital signs 98.1 F-79-17-131/42 98%. Exam nonacute. Abdomen nondistended with tender epigastric and right upper quadrant. WBC 9.7 RBC 2.49L Hgb 7.2L HCT 20 2.8L RDW 50 4.4H PLT 232 with normal differential. CMP notable for sodium 132L, BUN 30 7H, creatinine 1.6H with EGFR 30 2L. GLU 139H. Calcium 8.4L troponin was negative. UA was normal. Blood type is B+. Antibody screen negative. Gallbladder ultrasound: No acute abnormalities, apparent solid nodule in right upper pole of right kidney, CT with contrast or MRII recommended. CT abdomen pelvis: Moderate size hiatal hernia with eccentric soft tissue thickening possibly related to hernia but could not exclude mass, recommended endoscopic or barium swallow to further assess. Solid mass right upper pole and right kidney possibly neoplastic. No evidence of SBO or acute pancreatitis. 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 Chest x-ray: No acute abnormalities. Unable to get beds in local hospital, transferred to [facility]. Anemia 10/24/2019 09/12/2021 Last Assessment & Plan: Assessment & PLAN: See above Renal cell carcinoma 10/24/2019 09/12/2021 Last Assessment & Plan: Currently following with urology (Dr. Wagner) outpatient for routine surveillance imaging MRI kidney on 07/11/19 noting stable 2.2 cm right renal mass No plans for surgical intervention at this time Diverticulitis of large inte farooq with perforation and abscess without bleeding 06/16/2019 09/12/2021 Other chest pain 03/27/2019 09/19/2020 Overview: 03/24/19 CTA chest/ thorax: 1. Small incompletely occluded PE 2nd and 3rd branch right upper lobe PA; 2. Stable cardiac enlargement; Moderate calcification aortic root with 4.5cm fusiform dilatation mid-ascending aorta; 3. Atherosclerotic calcifications with ostial stenosis celiac trunk, SMA, bilateral renal arteries; 4. Small dependent pleural effusions, larger on right, compressive atelectasis posterior lung bases. 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 On January 2014, she needed a mammogram, colonosocpy, and BMD, she want the colonoscopy in the fall. Last Assessment & Plan: She has an appointment for the colonoscopy initial eval coming up, BMD was normal, discussed with the patient. SUMMARY 12/09/2013 12/22/2018 Overview: Htn, HPL, diabetes uncontrolled with hypoglycemia, aortic bioprosthetic valve, on xeralto, with mitral and aortic valves regurgitating, needs Yearly, Echo. Skin cancer , recent excision, Next visit need to do all the preventive measures. PVD and Carotid artery details, endocervical cancer. need to be probed into, got this form her previous records, patient did not mention to us. Carotid artery disease 12/09/2013 Overview: Per her records Type 2 diabetes mellitus wit hout complication, without long-term current use of insulin 11/20/2013 09/12/2021 Overview: 2008; has been well controlled for a while. Metformin caused her diarrhea. Patient had her eyes examined in [place] this year and was told that she had no retinopathy. December 7.5, she has been running around that for the last couple years, didn't take careof he diabetes. Last Assessment & Plan: Last a1c 7.1 on 06/07/19 Not on any home meds at this time (intolerance to metformin in past) Hemoglobin A1C (%) Date Value 10/24/2019 7.0 Follow up with pcp for discussion on initiating therapy documented as of this encounter (statuses as of 01/21/2022) [facility]08-14-2021 History of Past illness Narrative* Problem Noted Date Resolved Date Encounter for support and coordination of transi tion of care 02/15/2021 09/12/2021 Overview: 02/13/[address] Ferguson's office following gallbladder ultrasound demonstrating sludge. Admitted to some black stools but not bloody. Patient had Hgb of 7.2, hem positive stool. Vital signs 98.1 F-79-17-131/42 98%. Exam nonacute. Abdomen nondistended with tender epigastric and right upper quadrant. WBC 9.7 RBC 2.49L Hgb 7.2L HCT 20 2.8L RDW 50 4.4H PLT 232 with normal differential. CMP notable for sodium 132L, BUN 30 7H, creatinine 1.6H with EGFR 30 2L. GLU 139H. Calcium 8.4L troponin was negative. UA was normal. Blood type is B+. Antibody screen negative. Gallbladder ultrasound: No acute abnormalities, apparent solid nodule in right upper pole of right kidney, CT with contrast or MRII recommended. CT abdomen pelvis: Moderate size hiatal hernia with eccentric soft tissue thickening possibly related to hernia but could not exclude mass, recommended endoscopic or barium swallow to further assess. Solid mass right upper pole and right kidney possibly neoplastic. No evidence of SBO or acute pancreatitis. 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 Chest x-ray: No acute abnormalities. Unable to get beds in local hospital, transferred to [facility]. Anemia 10/24/2019 09/12/2021 Last Assessment & Plan: Assessment & PLAN: See above Renal cell carcinoma 10/24/2019 09/12/2021 Last Assessment & Plan: Currently following with urology (Dr. Wagner) outpatient for routine surveillance imaging MRI kidney on 07/11/19 noting stable 2.2 cm right renal mass No plans for surgical intervention at this time Diverticulitis of large inte farooq with perforation and abscess without bleeding 06/16/2019 09/12/2021 Other chest pain 03/27/2019 09/19/2020 Overview: 03/24/19 CTA chest/ thorax: 1. Small incompletely occluded PE 2nd and 3rd branch right upper lobe PA; 2. Stable cardiac enlargement; Moderate calcification aortic root with 4.5cm fusiform dilatation mid-ascending aorta; 3. Atherosclerotic calcifications with ostial stenosis celiac trunk, SMA, bilateral renal arteries; 4. Small dependent pleural effusions, larger on right, compressive atelectasis posterior lung bases. 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 On January 2014, she needed a mammogram, colonosocpy, and BMD, she want the colonoscopy in the fall. Last Assessment & Plan: She has an appointment for the colonoscopy initial eval coming up, BMD was normal, discussed with the patient. SUMMARY 12/09/2013 12/22/2018 Overview: Htn, HPL, diabetes uncontrolled with hypoglycemia, aortic bioprosthetic valve, on xeralto, with mitral and aortic valves regurgitating, needs Yearly, Echo. Skin cancer , recent excision, Next visit need to do all the preventive measures. PVD and Carotid artery details, endocervical cancer. need to be probed into, got this form her previous records, patient did not mention to us. Carotid artery disease 12/09/2013 Overview: Per her records Type 2 diabetes mellitus wit hout complication, without long-term current use of insulin 11/20/2013 09/12/2021 Overview: 2008; has been well controlled for a while. Metformin caused her diarrhea. Patient had her eyes examined in [place] this year and was told that she had no retinopathy. December 7.5, she has been running around that for the last couple years, didn't take careof he diabetes. Last Assessment & Plan: Last a1c 7.1 on 06/07/19 Not on any home meds at this time (intolerance to metformin in past) Hemoglobin A1C (%) Date Value 10/24/2019 7.0 Follow up with pcp for discussion on initiating therapy documented as of this encounter (statuses as of 01/23/2022) [facility]08-14-2021 History of Past illness Narrative* Problem Noted Date Resolved Date Encounter for support and coordination of transi tion of care 02/15/2021 09/12/2021 Overview: 02/13/[address] Ferguson's office following gallbladder ultrasound demonstrating sludge. Admitted to some black stools but not bloody. Patient had Hgb of 7.2, hem positive stool. Vital signs 98.1 F-79-17-131/42-98%. Exam nonacute. Abdomen nondistended with tender epigastric and right upper quadrant. WBC 9.7-RBC 2.49L-Hgb 7.2L-HCT 20 2.8L-RDW 50 4.4H-PLT 232 with normal differential. CMP notable for sodium 132L, BUN 30 7H, creatinine 1.6H with EGFR 30 2L. GLU 139H. Calcium 8.4L troponin was negative. UA was normal. Blood type is B+. Antibody screen negative. Gallbladder ultrasound: No acute abnormalities, apparent solid nodule in right upper pole of right kidney, CT with contrast or MRII recommended. CT abdomen pelvis: Moderate size hiatal hernia with eccentric soft tissue thickening possibly related to hernia but could not exclude mass, recommended endoscopic or barium swallow to further assess. Solid mass right upper pole and right kidney possibly neoplastic. No evidence of SBO or acute pancreatitis. 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 Chest x-ray: No acute abnormalities. Unable to get beds in local hospital, transferred to [facility]. Anemia 10/24/2019 09/12/2021 Last Assessment & Plan: Assessment & PLAN: See above Renal cell carcinoma 10/24/2019 09/12/2021 Last Assessment & Plan: Currently following with urology (Dr. Wanger) outpatient for routine surveillance imaging MRI kidney on 07/11/19 noting stable 2.2 cm right renal mass No plans for surgical intervention at this time Diverticulitis of large inte farooq with perforation and abscess without bleeding 06/16/2019 09/12/2021 Other chest pain 03/27/2019 09/19/2020 Overview: 03/24/19 CTA chest/ thorax: 1. Small incompletely occluded PE 2nd and 3rd branch right upper lobe PA; 2. Stable cardiac enlargement; Moderate calcification aortic root with 4.5cm fusiform dilatation mid-ascending aorta; 3. Atherosclerotic calcifications with ostial stenosis celiac trunk, SMA, bilateral renal arteries; 4. Small dependent pleural effusions, larger on right, compressive atelectasis posterior lung bases. 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 On January 2014, she needed a mammogram, colonosocpy, and BMD, she want the colonoscopy in the fall. Last Assessment & Plan: She has an appointment for the colonoscopy initial eval coming up, BMD was normal, discussed with the patient. SUMMARY 12/09/2013 12/22/2018 Overview: Htn, HPL, diabetes uncontrolled with hypoglycemia, aortic bioprosthetic valve, on xeralto, with mitral and aortic valves regurgitating, needs Yearly, Echo. Skin cancer , recent excision, Next visit need to do all the preventive measures. PVD and Carotid artery details, endocervical cancer. need to be probed into, got this form her previous records, patient did not mention to us. Carotid artery disease 12/09/2013 2 Overview: Per her records Type 2 diabetes mellitus wit hout complication, without long-term current use of insulin 11/20/2013 09/12/2021 Overview: 2008; has been well controlled for a while. Metformin caused her diarrhea. Patient had her eyes examined in [place] this year and was told that she had no retinopathy. December 09.5, she has been running around that for the last couple years, didn't take careof he diabetes. Last Assessment & Plan: Last a1c 7.1 on 06/07/19 Not on any home meds at this time (intolerance to metformin in past) Hemoglobin A1C (%) Date Value 10/24/2019 7.0 Follow up with pcp for discussion on initiating therapy documented as of this encounter (statuses as of 02/09/2022) [facility]08-14-2021 History of Past illness Narrative* Problem Noted Date Resolved Date Encounter for support and coordination of transi tion of care 02/15/2021 09/12/2021 Overview: 02/13/[address] Ferguson's office following gallbladder ultrasound demonstrating sludge. Admitted to some black stools but not bloody. Patient had Hgb of 7.2, hem positive stool. Vital signs 98.1 F-79-17-131/42-98%. Exam nonacute. Abdomen nondistended with tender epigastric and right upper quadrant. WBC 9.7-RBC 2.49L-Hgb 7.2L-HCT 20 2.8L-RDW 50 4.4H-PLT 232 with normal differential. CMP notable for sodium 132L, BUN 30 7H, creatinine 1.6H with EGFR 30 2L. GLU 139H. Calcium 8.4L troponin was negative. UA was normal. Blood type is B+. Antibody screen negative. Gallbladder ultrasound: No acute abnormalities, apparent solid nodule in right upper pole of right kidney, CT with contrast or MRII recommended. CT abdomen pelvis: Moderate size hiatal hernia with eccentric soft tissue thickening possibly related to hernia but could not exclude mass, recommended endoscopic or barium swallow to further assess. Solid mass right upper pole and right kidney possibly neoplastic. No evidence of SBO or acute pancreatitis. 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 Chest x-ray: No acute abnormalities. Unable to get beds in local hospital, transferred to [facility]. Anemia 10/24/2019 09/12/2021 Last Assessment & Plan: Assessment & PLAN: See above Renal cell carcinoma 10/24/2019 09/12/2021 Last Assessment & Plan: Currently following with urology (Dr. Wagner) outpatient for routine surveillance imaging MRI kidney on 07/11/19 noting stable 2.2 cm right renal mass No plans for surgical intervention at this time Diverticulitis of large inte farooq with perforation and abscess without bleeding 06/16/2019 09/12/2021 Other chest pain 03/27/2019 09/19/2020 Overview: 03/24/19 CTA chest/ thorax: 1. Small incompletely occluded PE 2nd and 3rd branch right upper lobe PA; 2. Stable cardiac enlargement; Moderate calcification aortic root with 4.5cm fusiform dilatation mid-ascending aorta; 3. Atherosclerotic calcifications with ostial stenosis celiac trunk, SMA, bilateral renal arteries; 4. Small dependent pleural effusions, larger on right, compressive atelectasis posterior lung bases. 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 On January 2014, she needed a mammogram, colonosocpy, and BMD, she want the colonoscopy in the fall. Last Assessment & Plan: She has an appointment for the colonoscopy initial eval coming up, BMD was normal, discussed with the patient. SUMMARY 12/09/2013 12/22/2018 Overview: Htn, HPL, diabetes uncontrolled with hypoglycemia, aortic bioprosthetic valve, on xeralto, with mitral and aortic valves regurgitating, needs Yearly, Echo. Skin cancer , recent excision, Next visit need to do all the preventive measures. PVD and Carotid artery details, endocervical cancer. need to be probed into, got this form her previous records, patient did not mention to us. Carotid artery disease 12/09/2013 Overview: Per her records Type 2 diabetes mellitus wit hout complication, without long-term current use of insulin 11/20/2013 09/12/2021 Overview: 2008; has been well controlled for a while. Metformin caused her diarrhea. Patient had her eyes examined in [place] this year and was told that she had no retinopathy. December 7.5, she has been running around that for the last couple years, didn't take careof he diabetes. Last Assessment & Plan: Last a1c 7.1 on 06/07/19 Not on any home meds at this time (intolerance to metformin in past) Hemoglobin A1C (%) Date Value 10/24/2019 7.0 Follow up with pcp for discussion on initiating therapy documented as of this encounter (statuses as of 02/20/2022) [facility]08-14-2021 History of Past illness Narrative* Problem Noted Date Resolved Date Encounter for support and coordination of transi tion of care 02/15/2021 09/12/2021 Overview: 02/13/[address] Ferguson's office following gallbladder ultrasound demonstrating sludge. Admitted to some black stools but not bloody. Patient had Hgb of 7.2, hem positive stool. Vital signs 98.1 F-79-17-131/42-98%. Exam nonacute. Abdomen nondistended with tender epigastric and right upper quadrant. WBC 9.7-RBC 2.49L-Hgb 7.2L-HCT 20 2.8L-RDW 50 4.4H-PLT 232 with normal differential. CMP notable for sodium 132L, BUN 30 7H, creatinine 1.6H with EGFR 30 2L. GLU 139H. Calcium 8.4L troponin was negative. UA was normal. Blood type is B+. Antibody screen negative. Gallbladder ultrasound: No acute abnormalities, apparent solid nodule in right upper pole of right kidney, CT with contrast or MRII recommended. CT abdomen pelvis: Moderate size hiatal hernia with eccentric soft tissue thickening possibly related to hernia but could not exclude mass, recommended endoscopic or barium swallow to further assess. Solid mass right upper pole and right kidney possibly neoplastic. No evidence of SBO or acute pancreatitis. 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 Chest x-ray: No acute abnormalities. Unable to get beds in local hospital, transferred to [facility]. Anemia 10/24/2019 09/12/2021 Last Assessment & Plan: Assessment & PLAN: See above Renal cell carcinoma 10/24/2019 09/12/2021 Last Assessment & Plan: Currently following with urology (Dr. Wagner) outpatient for routine surveillance imaging MRI kidney on 07/11/19 noting stable 2.2 cm right renal mass No plans for surgical intervention at this time Diverticulitis of large inte farooq with perforation and abscess without bleeding 06/16/2019 09/12/2021 Other chest pain 03/27/2019 09/19/2020 Overview: 03/24/19 CTA chest/ thorax: 1. Small incompletely occluded PE 2nd and 3rd branch right upper lobe PA; 2. Stable cardiac enlargement; Moderate calcification aortic root with 4.5cm fusiform dilatation mid-ascending aorta; 3. Atherosclerotic calcifications with ostial stenosis celiac trunk, SMA, bilateral renal arteries; 4. Small dependent pleural effusions, larger on right, compressive atelectasis posterior lung bases. 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 On January 2014, she needed a mammogram, colonosocpy, and BMD, she want the colonoscopy in the fall. Last Assessment & Plan: She has an appointment for the colonoscopy initial eval coming up, BMD was normal, discussed with the patient. SUMMARY 12/09/2013 12/22/2018 Overview: Htn, HPL, diabetes uncontrolled with hypoglycemia, aortic bioprosthetic valve, on xeralto, with mitral and aortic valves regurgitating, needs Yearly, Echo. Skin cancer , recent excision, Next visit need to do all the preventive measures. PVD and Carotid artery details, endocervical cancer. need to be probed into, got this form her previous records, patient did not mention to us. Carotid artery disease 12/09/2013 Overview: Per her records Type 2 diabetes mellitus wit hout complication, without long-term current use of insulin 11/20/2013 09/12/2021 Overview: 2008; has been well controlled for a while. Metformin caused her diarrhea. Patient had her eyes examined in [place] this year and was told that she had no retinopathy. December 7.5, she has been running around that for the last couple years, didn't take careof he diabetes. Last Assessment & Plan: Last a1c 7.1 on 06/07/19 Not on any home meds at this time (intolerance to metformin in past) Hemoglobin A1C (%) Date Value 10/24/2019 7.0 Follow up with pcp for discussion on initiating therapy documented as of this encounter (statuses as of 02/23/2022) [facility] Diagnosis PAD (peripheral artery disease) (HCC)- Primary Peripheral vascular disease, unspecified Anemia due to chronic illness Anemia of other chronic disease Atrial fibrillation, unspecified type (HCC) [facility] Diagnosis PAD (peripheral artery disease) (HCC)- Primary Peripheral vascular disease, unspecified PVD (peripheral vascular disease) (HCC) Peripheral vascular disease, unspecified Atrial fibrillation, unspecified type (HCC) [facility] Diagnosis Renal mass, right- Primary Unspecified disorder of kidney and ureter History of pulmonary embolism Personal history of pulmonary embolism Primary hypertension Unspecified essential hypertension Hyperlipidemia with target LDL less than 70 Other and unspecified hyperlipidemia Dilated cardiomyopathy (HCC) Other primary cardiomyopathies SSS (sick sinus syndrome) (HCC) Sinoatrial node dysfunction Chronic diastolic congestive heart failure (HCC) Chronic diastolic heart failure Ascending aorta dilatation (HCC) Thoracic aortic ectasia Pedro aneurysm of anterior communicating artery Subarachnoid hemorrhage Bilateral carotid artery stenosis Occlusion and stenosis of carotid artery without mention of cerebral infarction Chronic anticoagulation Long-term (current) use of anticoagulants Duodenal ulcer Duodenal ulcer, unspecified as acute or chronic, without hemorrhage, perforation, or obstruction Esophageal stenosis Stricture and stenosis of esophagus Hypomagnesemia Disorders of magnesium metabolism Stage 3 chronic renal impairment associated with type 2 diabetes mellitus (HCC) Type II or unspecified type diabetes mellitus with renal manifestations, not stated as uncontrolled History of ischemic colitis Adenomatous polyp of descending colon PAD (peripheral artery disease) (HCC) Peripheral vascular disease, unspecified Type 2 diabetes mellitus with diabetic peripheral angiopathy without gangrene, without long-term current use of insulin (HCC) Heme + stool Nonspecific abnormal finding in stool contents Epigastric pain Abdominal pain, epigastric Blood loss anemia Iron deficiency anemia secondary to blood loss (chronic) Chronic insomnia Insomnia, unspecified Ischial bursitis of left side Atrial fibrillation, unspecified type (HCC) [facility]* Diagnosis Anemia, unspecified type- Primary Atrial fibrillation, unspecified type (HCC) [facility] Diagnosis Anemia, blood loss- Primary Iron deficiency anemia secondary to blood loss (chronic) Acute blood loss anemia Acute posthemorrhagic anemia Heme + stool Nonspecific abnormal finding in stool contents Sludge in gallbladder Other specified disorder of gallbladder Epigastric pain Abdominal pain, epigastric Duodenal ulcer with hemorrhage Chronic or unspecified duodenal ulcer with hemorrhage, without mention of obstruction Atrial fibrillation, unspecified type (HCC) [facility]* Diagnosis Acute blood loss anemia Acute posthemorrhagic anemia Heme + stool Nonspecific abnormal finding in stool contents Epigastric pain Abdominal pain, epigastric Atrial fibrillation, unspecified type (HCC) documented in this encounter [facility] noteNo assessment information availableWAultman [facility] Work Phone: Evaluation note* Diagnosis Heme positive stool- Primary Nonspecific abnormal finding in stool contents Blood loss anemia Iron deficiency anemia secondary to blood loss (chronic) Atrial fibrillation, unspecified type (HCC) documented in this encounter [facility] note* Diagnosis Atrial fibrillation, unspecified type (HCC)- Primary Gastrointestinal hemorrhage, unspecified gastrointestinal hemorrhage type Anemia due to chronic blood loss Iron deficiency anemia secondary to blood loss (chronic) Other fatigue SOB (shortness of breath) Shortness of breath documented in this encounter [facility] note* Diagnosis Atrial fibrillation, unspecified type (HCC)- Primary Presence of Watchman left atrial appendage closure device Herpes zoster without complication Herpes zoster without mention of complication documented in this encounter [facility] note* Diagnosis Paroxysmal atrial fibrillation (HCC)- Primary Atrial fibrillation documented in this encounter [facility] note* Diagnosis Paroxysmal atrial fibrillation (HCC)- Primary Atrial fibrillation Presence of Watchman left atrial appendage closure device documented in this encounter [facility] note* Diagnosis Rectal bleeding- Primary Hemorrhage of rectum and anus Anemia, blood loss Iron deficiency anemia secondary to blood loss (chronic) Diarrhea, unspecified type documented in this encounter [facility] note* Diagnosis Longstanding persistent atrial fibrillation (HCC)- Primary Presence of Watchman left atrial appendage closure device documented in this encounter [facility] note* Diagnosis Acute combined systolic and diastolic congestive heart failure (HCC)- Primary Acute combined systolic and diastolic heart failure Aortic prosthetic valve regurgitation, subsequent encounter H/O rheumatic heart disease Personal history of other diseases of circulatory system Atrial fibrillation, unspecified type (HCC) Presence of Watchman left atrial appendage closure device Anemia, blood loss Iron deficiency anemia secondary to blood loss (chronic) Primary hypertension Unspecified essential hypertension [facility] Diagnosis History of prosthetic aortic valve replacement- Primary Heart valve replaced by other means Paroxysmal atrial fibrillation (HCC) Atrial fibrillation Ascending aorta dilatation (HCC) Thoracic aortic ectasia Chronic diastolic congestive heart failure (HCC) Chronic diastolic heart failure Primary hypertension Unspecified essential hypertension Hyperlipidemia with target LDL less than 70 Other and unspecified hyperlipidemia SSS (sick sinus syndrome) (HCC) Sinoatrial node dysfunction S/P placement of cardiac pacemaker Cardiac pacemaker in situ Bilateral carotid artery stenosis Occlusion and stenosis of carotid artery without mention of cerebral infarction [facility] Right renal mass Unspecified disorder of kidney and ureter [facility] Diagnosis Paroxysmal atrial fibrillation (HCC) Atrial fibrillation Presence of Watchman left atrial appendage closure device [facility] Hospital discharge follow-up- Primary Other follow-up examination H/O rheumatic heart disease Personal history of other diseases of circulatory system Aortic prosthetic valve regurgitation, 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) Acute combined systolic and diastolic heart failure SSS (sick sinus syndrome) (HCC) Sinoatrial node dysfunction Atrial fibrillation, unspecified type (HCC) Presence of Watchman left atrial appendage closure device Platelet inhibition due to Plavix Other secondary thrombocytopenia S/P placement of cardiac pacemaker Cardiac pacemaker in situ Dilated cardiomyopathy (HCC) Other primary cardiomyopathies Ascending aorta dilatation (HCC) Thoracic aortic ectasia Primary hypertension Unspecified essential hypertension Bilateral pleural effusion Unspecified pleural effusion Lung nodule, solitary Solitary pulmonary nodule Stage 3b chronic kidney disease (HCC) Type 2 diabetes mellitus with diabetic peripheral angiopathy without gangrene, without long-term current use of insulin (HCC) Renal mass, right Unspecified disorder of kidney and ureter Iron 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) [facility] 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 Other specified intestinal malabsorption [facility] Diagnosis 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 Neoplasm of uncertain behavior of kidney and ureter Iron 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) Stage 3b chronic kidney disease (HCC) [facility] Diagnosis Iron 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- Primary Iron malabsorption Other specified intestinal malabsorption [facility] Iron 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- Primary Iron malabsorption Other specified intestinal malabsorption [facility] Diagnosis Iron 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- Primary Iron malabsorption Other specified intestinal malabsorption [facility] Diagnosis Primary hypertension Unspecified essential hypertension [facility] Diagnosis Iron 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- Primary Iron malabsorption Other specified intestinal malabsorption [facility] Diagnosis Iron 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- Primary Chronic renal failure, stage 3b (HCC) [facility] Diagnosis Primary hypertension Unspecified essential hypertension [facility] Diagnosis H/O rheumatic heart disease- Primary Personal history of other diseases of circulatory system Aortic prosthetic valve regurgitation, subsequent encounter SSS (sick sinus syndrome) (HCC) Sinoatrial node dysfunction Atrial fibrillation, unspecified type (HCC) Presence of Watchman left atrial appendage closure device 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) Chronic combined systolic and diastolic heart failure S/P placement of cardiac pacemaker Cardiac pacemaker in situ Dilated cardiomyopathy (HCC) Other primary cardiomyopathies Ascending aorta dilatation (HCC) Thoracic aortic ectasia History of pulmonary embolism Personal history of pulmonary embolism Platelet inhibition due to Plavix Other secondary thrombocytopenia Primary hypertension Unspecified essential hypertension Hyperlipidemia with target LDL less than 70 Other and unspecified hyperlipidemia Pedro aneurysm of anterior communicating artery Subarachnoid hemorrhage Stage 3b chronic kidney disease (HCC) Type 2 diabetes mellitus with diabetic peripheral angiopathy without gangrene, without long-term current use of insulin (HCC) Renal mass, right Unspecified disorder of kidney and ureter Anemia, blood loss Iron deficiency anemia secondary to blood loss (chronic) Intracranial aneurysm Cerebral aneurysm, nonruptured Spondylolisthesis at L4-L5 level Nonruptured cerebral aneurysm Cerebral aneurysm, nonruptured Paroxysmal atrial fibrillation (HCC) Atrial fibrillation Peripheral artery disease (HCC) Peripheral vascular disease, unspecified [facility] Diagnosis Lung nodule, solitary- Primary Solitary pulmonary nodule [facility] Diagnosis Heme + stool Nonspecific abnormal finding in stool contents Epigastric pain Abdominal pain, epigastric Blood loss anemia Iron deficiency anemia secondary to blood loss (chronic) [facility] Diagnosis History of prosthetic aortic valve replacement- Primary Heart valve replaced by other means H/O rheumatic heart disease Personal history of other diseases of circulatory system Paroxysmal atrial fibrillation (HCC) Atrial fibrillation Ascending aorta dilatation (HCC) Thoracic aortic ectasia Dilated cardiomyopathy (HCC) Other primary cardiomyopathies 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) Chronic combined systolic and diastolic heart failure SSS (sick sinus syndrome) ([facility]) Sinoatrial node dysfunction S/P placement of cardiac pacemaker Cardiac pacemaker in situ PAD (peripheral artery disease) ([facility]) Peripheral vascular disease, unspecified Hyperlipidemia with target LDL less than 70 Other and unspecified hyperlipidemia [facility] Primary hypertension Unspecified essential hypertension [facility] Diagnosis S/P placement of cardiac pacemaker- Primary Cardiac pacemaker in situ SSS (sick sinus syndrome) ([facility]) Sinoatrial node dysfunction 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) Chronic combined systolic and diastolic heart failure Dilated cardiomyopathy (HCC) Other primary cardiomyopathies Ascending aorta dilatation (HCC) Thoracic aortic ectasia H/O rheumatic heart disease Personal history of other diseases of circulatory system History of prosthetic aortic valve replacement Heart valve replaced by other means Paroxysmal atrial fibrillation (HCC) Atrial fibrillation Presence of Watchman left atrial appendage closure device Platelet inhibition due to Plavix Other secondary thrombocytopenia Primary hypertension Unspecified essential hypertension Hyperlipidemia with target LDL less than 70 Other and unspecified hyperlipidemia History of pulmonary embolism Personal history of pulmonary embolism Lung nodule, solitary Solitary pulmonary nodule Chronic renal failure, stage 3b ([facility]) Gastroesophageal reflux disease without esophagitis Esophageal reflux Esophageal stenosis Stricture and stenosis of esophagus Diverticulitis large intestine w/o perforation or abscess w/o bleeding Diverticulitis of colon (without mention of hemorrhage) Iron malabsorption Other specified intestinal malabsorption History of ischemic colitis Adenomatous polyp of descending colon Pedro aneurysm of anterior communicating artery Subarachnoid hemorrhage Bilateral carotid artery stenosis Occlusion and stenosis of carotid artery without mention of cerebral infarction Type 2 diabetes mellitus with diabetic peripheral angiopathy without gangrene, without long-term current use of insulin ([facility]) [facility] Bilateral carotid artery stenosis- Primary Occlusion and stenosis of carotid artery without mention of cerebral infarction Atherosclerosis of [place] artery of both lower extremities with intermittent claudication (HCC) Atherosclerosis of [place] arteries of the extremities with intermittent claudication 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HCC) Acute vascular insufficiency of intestine Pain in both lower legs 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 Other specified intestinal malabsorption S/P placement of cardiac pacemaker Cardiac pacemaker in situ SSS (sick sinus syndrome) (HCC) Sinoatrial node dysfunction 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) Chronic combined systolic and diastolic heart failure Dilated cardiomyopathy (HCC) Other primary cardiomyopathies Ascending aorta dilatation (HCC) Thoracic aortic ectasia H/O rheumatic heart disease Personal history of other diseases of circulatory system History of prosthetic aortic valve replacement Heart valve replaced by other means Paroxysmal atrial fibrillation (HCC) Atrial fibrillation History of pulmonary embolism Personal history of pulmonary embolism Presence of Watchman left atrial appendage closure device Platelet inhibition due to Plavix Other secondary thrombocytopenia Primary hypertension Unspecified essential hypertension Hyperlipidemia with target LDL less than 70 Other and unspecified hyperlipidemia Lung nodule, solitary Solitary pulmonary nodule Type 2 diabetes mellitus with diabetic peripheral angiopathy without gangrene, without long-term current use of insulin (HCC) Chronic renal failure, stage 3b (HCC) Renal cell carcinoma of right kidney (HCC) Gastrointestinal hemorrhage associated with acute gastritis Esophageal stenosis Stricture and stenosis of esophagus Hypomagnesemia Disorders of magnesium metabolism Duodenal ulcer Duodenal ulcer, unspecified as acute or chronic, without hemorrhage, perforation, or obstruction Iron deficiency anemia, unspecified iron deficiency anemia type [facility] Diagnosis PVD (peripheral vascular disease) with claudication ([facility])- Primary Peripheral vascular disease, unspecified [facility] Diagnosis Heme + stool Nonspecific abnormal finding in stool contents Epigastric pain Abdominal pain, epigastric Blood loss anemia Iron deficiency anemia secondary to blood loss (chronic) [facility] Diagnosis Lung nodule, solitary Solitary pulmonary nodule [facility] Diagnosis 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 [facility] Diagnosis Closed nondisplaced fracture of fifth metatarsal bone of right foot with routine healing, subsequent encounter- Primary [facility] Diagnosis Influenza-like illness- Primary Influenza with other respiratory manifestations [facility] Diagnosis Chronic combined systolic and diastolic CHF (congestive heart failure) ([facility])- Primary Chronic combined systolic and diastolic heart failure Dilated cardiomyopathy (HCC) Other primary cardiomyopathies [facility] Diagnosis SSS (sick sinus syndrome) (HCC)- Primary Sinoatrial node dysfunction Paroxysmal atrial fibrillation (HCC) Atrial fibrillation S/P placement of cardiac pacemaker Cardiac pacemaker in situ 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) Chronic combined systolic and diastolic heart failure Dilated cardiomyopathy (HCC) Other primary cardiomyopathies Ascending aorta dilatation (HCC) Thoracic aortic ectasia Pedro aneurysm of anterior communicating artery Subarachnoid hemorrhage History of pulmonary embolism Personal history of pulmonary embolism Presence of Watchman left atrial appendage closure device Platelet inhibition due to Plavix Other secondary thrombocytopenia Primary hypertension Unspecified essential hypertension Hyperlipidemia with target LDL less than 70 Other and unspecified hyperlipidemia Heme + stool Nonspecific abnormal finding in stool contents Epigastric pain Abdominal pain, epigastric Blood loss anemia Iron deficiency anemia secondary to blood loss (chronic) Acute systolic CHF (congestive heart failure) (HCC) Acute systolic heart failure Vitamin D deficiency Unspecified vitamin D deficiency [facility] Borderline anemia- Primary Acute systolic congestive heart failure (HCC) Acute systolic heart failure [facility] Diagnosis Acute systolic CHF (congestive heart failure) ([facility])- Primary Acute systolic heart failure Rheumatic tricuspid valve regurgitation Diseases of tricuspid valve Diuresis excessive Polyuria Chronic combined systolic and diastolic CHF (congestive heart failure) ([facility]) Chronic combined systolic and diastolic heart failure Dilated cardiomyopathy (HCC) Other primary cardiomyopathies Longstanding persistent atrial fibrillation ([facility]) SSS (sick sinus syndrome) ([facility]) Sinoatrial node dysfunction S/P placement of cardiac pacemaker Cardiac pacemaker in situ Acute hip pain, right Piriformis syndrome, right Bilateral knee effusions Effusion of lower leg joint Primary osteoarthritis of both knees Primary localized osteoarthrosis, lower leg [facility] Diagnosis Acute HFrEF (heart failure with reduced ejection fraction) ([facility])- Primary VHD (valvular heart disease) Endocarditis, valve unspecified, unspecified cause Nonrheumatic tricuspid valve regurgitation Tricuspid valve disorders, specified as nonrheumatic Nonrheumatic mitral valve regurgitation Persistent atrial fibrillation ([facility]) Atrial fibrillation Pacemaker Cardiac pacemaker in situ [facility] Diagnosis Venous insufficiency- Primary Unspecified venous (peripheral) insufficiency [facility] Diagnosis Venous insufficiency- Primary Unspecified venous (peripheral) insufficiency [facility] Iron 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- Primary Iron malabsorption Other specified intestinal malabsorption [facility] Diagnosis Acute systolic CHF (congestive heart failure) ([facility])- Primary Acute systolic heart failure Hyponatremia Hyposmolality and/or hyponatremia Hypokalemia Hypopotassemia [facility] Diagnosis Chronic diastolic congestive heart failure (HCC)- Primary Chronic diastolic heart failure Primary hypertension Unspecified essential hypertension SSS (sick sinus syndrome) ([facility]) Sinoatrial node dysfunction Longstanding persistent atrial fibrillation (HCC) Acute systolic CHF (congestive heart failure) (HCC) Acute systolic heart failure documented in this encounter [facility]* Diagnosis URI, acute- Primary Acute upper respiratory infections of unspecified site [facility] Diagnosis History of prosthetic aortic valve replacement- Primary Heart valve replaced by other means H/O rheumatic heart disease Personal history of other diseases of circulatory system Longstanding persistent atrial fibrillation (HCC) Ascending aorta dilatation (HCC) Thoracic aortic ectasia Dilated cardiomyopathy (HCC) Other primary cardiomyopathies Aortic prosthetic valve regurgitation, subsequent encounter Chronic diastolic (congestive) heart failure (HCC) SSS (sick sinus syndrome) ([facility]) Sinoatrial node dysfunction Primary hypertension Unspecified essential hypertension Hyperlipidemia with target LDL less than 70 Other and unspecified hyperlipidemia S/P placement of cardiac pacemaker Cardiac pacemaker in situ PAD (peripheral artery disease) ([facility]) Peripheral vascular disease, unspecified Acute systolic CHF (congestive heart failure) (HCC) Acute systolic heart failure [facility] Diagnosis Chronic diastolic congestive heart failure (HCC)- Primary Chronic diastolic heart failure [facility] Diagnosis Chronic kidney disease, unspecified CKD stage- Primary [facility] Diagnosis SOB (shortness of breath)- Primary Shortness of breath Hyperlipidemia LDL goal < 70 Other and unspecified hyperlipidemia Diabetes (HCC) Type II or unspecified type diabetes mellitus without mention of complication, not stated as uncontrolled GERD (gastroesophageal reflux disease) Esophageal reflux Chronic anticoagulation Long-term (current) use of anticoagulants Fatigue Other malaise and fatigue H/O rheumatic heart disease Personal history of other diseases of circulatory system A-fib (HCC) Atrial fibrillation Diabetes (HCC)- Primary Type II or unspecified type diabetes mellitus without mention of complication, not stated as uncontrolled Hyperlipidemia LDL goal < 70 Other and unspecified hyperlipidemia HTN (hypertension) Unspecified essential hypertension H/O rheumatic heart disease Personal history of other diseases of circulatory system Fatigue Other malaise and fatigue Chronic anticoagulation Long-term (current) use of anticoagulants SOB (shortness of breath) Shortness of breath Skin lesion Unspecified disorder of skin and subcutaneous tissue A-fib (HCC)- Primary Atrial fibrillation Chronic anticoagulation Long-term (current) use of anticoagulants Routine health maintenance Routine general medical examination at a health care facility Diabetes (HCC) Type II or unspecified type diabetes mellitus without mention of complication, not stated as uncontrolled HTN (hypertension) Unspecified essential hypertension Basal cell carcinoma Basal cell carcinoma of skin, site unspecified CAD (coronary artery disease) Coronary atherosclerosis of unspecified type of vessel, [place] or graft SUMMARY Hyperlipidemia LDL goal < 70 Other and unspecified hyperlipidemia Peripheral vascular disease (HCC) Peripheral vascular disease, unspecified Diabetes (HCC)- Primary Type II or unspecified type diabetes mellitus without mention of complication, not stated as uncontrolled Left shoulder pain Pain in joint, shoulder region Hyperlipidemia LDL goal < 70 Other and unspecified hyperlipidemia HTN (hypertension) Unspecified essential hypertension Abdominal pain Abdominal pain, unspecified site Routine health maintenance Routine general medical examination at a health care facility Preop examination- Primary Preoperative examination, unspecified Diverticulitis of large intestine with perforation and abscess without bleeding Colovesical fistula Intestinovesical fistula Pedro aneurysm of anterior communicating artery Subarachnoid hemorrhage Bilateral carotid artery stenosis Occlusion and stenosis of carotid artery without mention of cerebral infarction PAD (peripheral artery disease) (HCC) Peripheral vascular disease, unspecified Type 2 diabetes mellitus without complication, without long-term current use of insulin (HCC) Gastroesophageal reflux disease without esophagitis Esophageal reflux Other persistent atrial fibrillation (HCC) Ascending aorta dilatation (HCC) Thoracic aortic ectasia Stage 3 chronic renal impairment associated with type 2 diabetes mellitus (HCC) Type II or unspecified type diabetes mellitus with renal manifestations, not stated as uncontrolled Chronic anticoagulation Long-term (current) use of anticoagulants History of prosthetic aortic valve replacement Heart valve replaced by other means Essential hypertension Unspecified essential hypertension Renal mass, right Unspecified disorder of kidney and ureter Acute pulmonary embolism, unspecified pulmonary embolism type, unspecified whether acute cor pulmonale present (HCC) Gastrointestinal hemorrhage, unspecified gastrointestinal hemorrhage type Iron deficiency anemia, unspecified iron deficiency anemia type Paroxysmal atrial fibrillation (HCC) Atrial fibrillation Stage 3 chronic renal impairment associated with type 2 diabetes mellitus (HCC) Type II or unspecified type diabetes mellitus with renal manifestations, not stated as uncontrolled Acute systolic CHF (congestive heart failure) (HCC) Acute systolic heart failure [facility] Diagnosis SOB (shortness of breath)- Primary Shortness of breath Hyperlipidemia LDL goal < 70 Other and unspecified hyperlipidemia Diabetes (HCC) Type II or unspecified type diabetes mellitus without mention of complication, not stated as uncontrolled GERD (gastroesophageal reflux disease) Esophageal reflux Chronic anticoagulation Long-term (current) use of anticoagulants Fatigue Other malaise and fatigue H/O rheumatic heart disease Personal history of other diseases of circulatory system A-fib (HCC) Atrial fibrillation Diabetes (HCC)- Primary Type II or unspecified type diabetes mellitus without mention of complication, not stated as uncontrolled Hyperlipidemia LDL goal < 70 Other and unspecified hyperlipidemia HTN (hypertension) Unspecified essential hypertension H/O rheumatic heart disease Personal history of other diseases of circulatory system Fatigue Other malaise and fatigue Chronic anticoagulation Long-term (current) use of anticoagulants SOB (shortness of breath) Shortness of breath Skin lesion Unspecified disorder of skin and subcutaneous tissue A-fib (HCC)- Primary Atrial fibrillation Chronic anticoagulation Long-term (current) use of anticoagulants Routine health maintenance Routine general medical examination at a health care facility Diabetes (HCC) Type II or unspecified type diabetes mellitus without mention of complication, not stated as uncontrolled HTN (hypertension) Unspecified essential hypertension Basal cell carcinoma Basal cell carcinoma of skin, site unspecified CAD (coronary artery disease) Coronary atherosclerosis of unspecified type of vessel, [place] or graft SUMMARY Hyperlipidemia LDL goal < 70 Other and unspecified hyperlipidemia Peripheral vascular disease (HCC) Peripheral vascular disease, unspecified Diabetes (HCC)- Primary Type II or unspecified type diabetes mellitus without mention of complication, not stated as uncontrolled Left shoulder pain Pain in joint, shoulder region Hyperlipidemia LDL goal < 70 Other and unspecified hyperlipidemia HTN (hypertension) Unspecified essential hypertension Abdominal pain Abdominal pain, unspecified site Routine health maintenance Routine general medical examination at a health care facility Preop examination- Primary Preoperative examination, unspecified Diverticulitis of large intestine with perforation and abscess without bleeding Colovesical fistula Intestinovesical fistula Pedro aneurysm of anterior communicating artery Subarachnoid hemorrhage Bilateral carotid artery stenosis Occlusion and stenosis of carotid artery without mention of cerebral infarction PAD (peripheral artery disease) (HCC) Peripheral vascular disease, unspecified Type 2 diabetes mellitus without complication, without long-term current use of insulin (HCC) Gastroesophageal reflux disease without esophagitis Esophageal reflux Other persistent atrial fibrillation (HCC) Ascending aorta dilatation (HCC) Thoracic aortic ectasia Stage 3 chronic renal impairment associated with type 2 diabetes mellitus (HCC) Type II or unspecified type diabetes mellitus with renal manifestations, not stated as uncontrolled Chronic anticoagulation Long-term (current) use of anticoagulants History of prosthetic aortic valve replacement Heart valve replaced by other means Essential hypertension Unspecified essential hypertension Renal mass, right Unspecified disorder of kidney and ureter Acute pulmonary embolism, unspecified pulmonary embolism type, unspecified whether acute cor pulmonale present (HCC) Gastrointestinal hemorrhage, unspecified gastrointestinal hemorrhage type Iron deficiency anemia, unspecified iron deficiency anemia type Paroxysmal atrial fibrillation (HCC) Atrial fibrillation Stage 3 chronic renal impairment associated with type 2 diabetes mellitus (HCC) Type II or unspecified type diabetes mellitus with renal manifestations, not stated as uncontrolled Closed nondisplaced fracture of fifth metatarsal bone of right foot with routine healing, subsequent encounter [facility] Diagnosis SOB (shortness of breath)- Primary Shortness of breath Hyperlipidemia LDL goal < 70 Other and unspecified hyperlipidemia Diabetes (HCC) Type II or unspecified type diabetes mellitus without mention of complication, not stated as uncontrolled GERD (gastroesophageal reflux disease) Esophageal reflux Chronic anticoagulation Long-term (current) use of anticoagulants Fatigue Other malaise and fatigue H/O rheumatic heart disease Personal history of other diseases of circulatory system A-fib (HCC) Atrial fibrillation Diabetes (HCC)- Primary Type II or unspecified type diabetes mellitus without mention of complication, not stated as uncontrolled Hyperlipidemia LDL goal < 70 Other and unspecified hyperlipidemia HTN (hypertension) Unspecified essential hypertension H/O rheumatic heart disease Personal history of other diseases of circulatory system Fatigue Other malaise and fatigue Chronic anticoagulation Long-term (current) use of anticoagulants SOB (shortness of breath) Shortness of breath Skin lesion Unspecified disorder of skin and subcutaneous tissue A-fib (HCC)- Primary Atrial fibrillation Chronic anticoagulation Long-term (current) use of anticoagulants Routine health maintenance Routine general medical examination at a health care facility Diabetes (HCC) Type II or unspecified type diabetes mellitus without mention of complication, not stated as uncontrolled HTN (hypertension) Unspecified essential hypertension Basal cell carcinoma Basal cell carcinoma of skin, site unspecified CAD (coronary artery disease) Coronary atherosclerosis of unspecified type of vessel, [place] or graft SUMMARY Hyperlipidemia LDL goal < 70 Other and unspecified hyperlipidemia Peripheral vascular disease (HCC) Peripheral vascular disease, unspecified Diabetes (HCC)- Primary Type II or unspecified type diabetes mellitus without mention of complication, not stated as uncontrolled Left shoulder pain Pain in joint, shoulder region Hyperlipidemia LDL goal < 70 Other and unspecified hyperlipidemia HTN (hypertension) Unspecified essential hypertension Abdominal pain Abdominal pain, unspecified site Routine health maintenance Routine general medical examination at a health care facility Preop examination- Primary Preoperative examination, unspecified Diverticulitis of large intestine with perforation and abscess without bleeding Colovesical fistula Intestinovesical fistula Pedro aneurysm of anterior communicating artery Subarachnoid hemorrhage Bilateral carotid artery stenosis Occlusion and stenosis of carotid artery without mention of cerebral infarction PAD (peripheral artery disease) ([facility]) Peripheral vascular disease, unspecified Type 2 diabetes mellitus without complication, without long-term current use of insulin (HCC) Gastroesophageal reflux disease without esophagitis Esophageal reflux Other persistent atrial fibrillation ([facility]) Ascending aorta dilatation (HCC) Thoracic aortic ectasia Stage 3 chronic renal impairment associated with type 2 diabetes mellitus (HCC) Type II or unspecified type diabetes mellitus with renal manifestations, not stated as uncontrolled Chronic anticoagulation Long-term (current) use of anticoagulants History of prosthetic aortic valve replacement Heart valve replaced by other means Essential hypertension Unspecified essential hypertension Renal mass, right Unspecified disorder of kidney and ureter Acute pulmonary embolism, unspecified pulmonary embolism type, unspecified whether acute cor pulmonale present ([facility]) Gastrointestinal hemorrhage, unspecified gastrointestinal hemorrhage type Iron deficiency anemia, unspecified iron deficiency anemia type Paroxysmal atrial fibrillation (HCC) Atrial fibrillation Stage 3 chronic renal impairment associated with type 2 diabetes mellitus (HCC) Type II or unspecified type diabetes mellitus with renal manifestations, not stated as uncontrolled Pain of right middle finger [facility] SOB (shortness of breath)- Primary Shortness of breath Hyperlipidemia LDL goal < 70 Other and unspecified hyperlipidemia Diabetes (HCC) Type II or unspecified type diabetes mellitus without mention of complication, not stated as uncontrolled GERD (gastroesophageal reflux disease) Esophageal reflux Chronic anticoagulation Long-term (current) use of anticoagulants Fatigue Other malaise and fatigue H/O rheumatic heart disease Personal history of other diseases of circulatory system A-fib (HCC) Atrial fibrillation Diabetes (HCC)- Primary Type II or unspecified type diabetes mellitus without mention of complication, not stated as uncontrolled Hyperlipidemia LDL goal < 70 Other and unspecified hyperlipidemia HTN (hypertension) Unspecified essential hypertension H/O rheumatic heart disease Personal history of other diseases of circulatory system Fatigue Other malaise and fatigue Chronic anticoagulation Long-term (current) use of anticoagulants SOB (shortness of breath) Shortness of breath Skin lesion Unspecified disorder of skin and subcutaneous tissue A-fib (HCC)- Primary Atrial fibrillation Chronic anticoagulation Long-term (current) use of anticoagulants Routine health maintenance Routine general medical examination at a health care facility Diabetes (HCC) Type II or unspecified type diabetes mellitus without mention of complication, not stated as uncontrolled HTN (hypertension) Unspecified essential hypertension Basal cell carcinoma Basal cell carcinoma of skin, site unspecified CAD (coronary artery disease) Coronary atherosclerosis of unspecified type of vessel, [place] or graft SUMMARY Hyperlipidemia LDL goal < 70 Other and unspecified hyperlipidemia Peripheral vascular disease (HCC) Peripheral vascular disease, unspecified Diabetes (HCC)- Primary Type II or unspecified type diabetes mellitus without mention of complication, not stated as uncontrolled Left shoulder pain Pain in joint, shoulder region Hyperlipidemia LDL goal < 70 Other and unspecified hyperlipidemia HTN (hypertension) Unspecified essential hypertension Abdominal pain Abdominal pain, unspecified site Routine health maintenance Routine general medical examination at a health care facility Preop examination- Primary Preoperative examination, unspecified Diverticulitis of large intestine with perforation and abscess without bleeding Colovesical fistula Intestinovesical fistula Pedro aneurysm of anterior communicating artery Subarachnoid hemorrhage Bilateral carotid artery stenosis Occlusion and stenosis of carotid artery without mention of cerebral infarction PAD (peripheral artery disease) (HCC) Peripheral vascular disease, unspecified Type 2 diabetes mellitus without complication, without long-term current use of insulin (HCC) Gastroesophageal reflux disease without esophagitis Esophageal reflux Other persistent atrial fibrillation (HCC) Ascending aorta dilatation (HCC) Thoracic aortic ectasia Stage 3 chronic renal impairment associated with type 2 diabetes mellitus (HCC) Type II or unspecified type diabetes mellitus with renal manifestations, not stated as uncontrolled Chronic anticoagulation Long-term (current) use of anticoagulants History of prosthetic aortic valve replacement Heart valve replaced by other means Essential hypertension Unspecified essential hypertension Renal mass, right Unspecified disorder of kidney and ureter Acute pulmonary embolism, unspecified pulmonary embolism type, unspecified whether acute cor pulmonale present (HCC) Iron deficiency anemia- Primary Iron deficiency anemia, unspecified Gastrointestinal hemorrhage, unspecified gastrointestinal hemorrhage type Iron deficiency anemia, unspecified iron deficiency anemia type Paroxysmal atrial fibrillation (HCC) Atrial fibrillation HTN (hypertension) Unspecified essential hypertension Stage 3 chronic renal impairment associated with type 2 diabetes mellitus (HCC) Type II or unspecified type diabetes mellitus with renal manifestations, not stated as uncontrolled Hypomagnesemia Disorders of magnesium metabolism Ischial bursitis of left side [facility] Diagnosis SOB (shortness of breath)- Primary Shortness of breath Hyperlipidemia LDL goal < 70 Other and unspecified hyperlipidemia Diabetes (HCC) Type II or unspecified type diabetes mellitus without mention of complication, not stated as uncontrolled GERD (gastroesophageal reflux disease) Esophageal reflux Chronic anticoagulation Long-term (current) use of anticoagulants Fatigue Other malaise and fatigue H/O rheumatic heart disease Personal history of other diseases of circulatory system A-fib (HCC) Atrial fibrillation Diabetes (HCC)- Primary Type II or unspecified type diabetes mellitus without mention of complication, not stated as uncontrolled Hyperlipidemia LDL goal < 70 Other and unspecified hyperlipidemia HTN (hypertension) Unspecified essential hypertension H/O rheumatic heart disease Personal history of other diseases of circulatory system Fatigue Other malaise and fatigue Chronic anticoagulation Long-term (current) use of anticoagulants SOB (shortness of breath) Shortness of breath Skin lesion Unspecified disorder of skin and subcutaneous tissue A-fib (HCC)- Primary Atrial fibrillation Chronic anticoagulation Long-term (current) use of anticoagulants Routine health maintenance Routine general medical examination at a health care facility Diabetes (HCC) Type II or unspecified type diabetes mellitus without mention of complication, not stated as uncontrolled HTN (hypertension) Unspecified essential hypertension Basal cell carcinoma Basal cell carcinoma of skin, site unspecified CAD (coronary artery disease) Coronary atherosclerosis of unspecified type of vessel, [place] or graft SUMMARY Hyperlipidemia LDL goal < 70 Other and unspecified hyperlipidemia Peripheral vascular disease (HCC) Peripheral vascular disease, unspecified Diabetes (HCC)- Primary Type II or unspecified type diabetes mellitus without mention of complication, not stated as uncontrolled Left shoulder pain Pain in joint, shoulder region Hyperlipidemia LDL goal < 70 Other and unspecified hyperlipidemia HTN (hypertension) Unspecified essential hypertension Abdominal pain Abdominal pain, unspecified site Routine health maintenance Routine general medical examination at a health care facility Preop examination- Primary Preoperative examination, unspecified Diverticulitis of large intestine with perforation and abscess without bleeding Colovesical fistula Intestinovesical fistula Pedro aneurysm of anterior communicating artery Subarachnoid hemorrhage Bilateral carotid artery stenosis Occlusion and stenosis of carotid artery without mention of cerebral infarction PAD (peripheral artery disease) (HCC) Peripheral vascular disease, unspecified Type 2 diabetes mellitus without complication, without long-term current use of insulin (HCC) Gastroesophageal reflux disease without esophagitis Esophageal reflux Other persistent atrial fibrillation (HCC) Ascending aorta dilatation (HCC) Thoracic aortic ectasia Stage 3 chronic renal impairment associated with type 2 diabetes mellitus (HCC) Type II or unspecified type diabetes mellitus with renal manifestations, not stated as uncontrolled Chronic anticoagulation Long-term (current) use of anticoagulants History of prosthetic aortic valve replacement Heart valve replaced by other means Essential hypertension Unspecified essential hypertension Renal mass, right Unspecified disorder of kidney and ureter Acute pulmonary embolism, unspecified pulmonary embolism type, unspecified whether acute cor pulmonale present (HCC) Gastrointestinal hemorrhage, unspecified gastrointestinal hemorrhage type Iron deficiency anemia, unspecified iron deficiency anemia type Paroxysmal atrial fibrillation (HCC) Atrial fibrillation Stage 3 chronic renal impairment associated with type 2 diabetes mellitus (HCC) Type II or unspecified type diabetes mellitus with renal manifestations, not stated as uncontrolled Chronic diastolic congestive heart failure (HCC)- Primary Chronic diastolic heart failure Primary hypertension Unspecified essential hypertension SSS (sick sinus syndrome) (HCC) Sinoatrial node dysfunction Longstanding persistent atrial fibrillation ([facility]) documented in this encounter [facility]* Diagnosis SOB (shortness of breath)- Primary Shortness of breath Hyperlipidemia LDL goal < 70 Other and unspecified hyperlipidemia Diabetes (HCC) Type II or unspecified type diabetes mellitus without mention of complication, not stated as uncontrolled GERD (gastroesophageal reflux disease) Esophageal reflux Chronic anticoagulation Long-term (current) use of anticoagulants Fatigue Other malaise and fatigue H/O rheumatic heart disease Personal history of other diseases of circulatory system A-fib (HCC) Atrial fibrillation Diabetes (HCC)- Primary Type II or unspecified type diabetes mellitus without mention of complication, not stated as uncontrolled Hyperlipidemia LDL goal < 70 Other and unspecified hyperlipidemia HTN (hypertension) Unspecified essential hypertension H/O rheumatic heart disease Personal history of other diseases of circulatory system Fatigue Other malaise and fatigue Chronic anticoagulation Long-term (current) use of anticoagulants SOB (shortness of breath) Shortness of breath Skin lesion Unspecified disorder of skin and subcutaneous tissue A-fib (HCC)- Primary Atrial fibrillation Chronic anticoagulation Long-term (current) use of anticoagulants Routine health maintenance Routine general medical examination at a health care facility Diabetes (HCC) Type II or unspecified type diabetes mellitus without mention of complication, not stated as uncontrolled HTN (hypertension) Unspecified essential hypertension Basal cell carcinoma Basal cell carcinoma of skin, site unspecified CAD (coronary artery disease) Coronary atherosclerosis of unspecified type of vessel, [place] or graft SUMMARY Hyperlipidemia LDL goal < 70 Other and unspecified hyperlipidemia Peripheral vascular disease Peripheral vascular disease, unspecified Diabetes (HCC)- Primary Type II or unspecified type diabetes mellitus without mention of complication, not stated as uncontrolled Left shoulder pain Pain in joint, shoulder region Hyperlipidemia LDL goal < 70 Other and unspecified hyperlipidemia HTN (hypertension) Unspecified essential hypertension Abdominal pain Abdominal pain, unspecified site Routine health maintenance Routine general medical examination at a health care facility Preop examination- Primary Preoperative examination, unspecified Diverticulitis of large intestine with perforation and abscess without bleeding Colovesical fistula Intestinovesical fistula 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) Subarachnoid hemorrhage Bilateral carotid artery stenosis Occlusion and stenosis of carotid artery without mention of cerebral infarction PAD (peripheral artery disease) Peripheral vascular disease, unspecified Type 2 diabetes mellitus without complication, without long-term current use of insulin (HCC) Gastroesophageal reflux disease without esophagitis Esophageal reflux Other persistent atrial fibrillation (HCC) Ascending aorta dilatation Thoracic aortic ectasia Stage 3 chronic renal impairment associated with type 2 diabetes mellitus (HCC) Type II or unspecified type diabetes mellitus with renal manifestations, not stated as uncontrolled Chronic anticoagulation Long-term (current) use of anticoagulants History of prosthetic aortic valve replacement Heart valve replaced by other means Essential hypertension Unspecified essential hypertension Renal mass, right Unspecified disorder of kidney and ureter Acute pulmonary embolism, unspecified pulmonary embolism type, unspecified whether acute cor pulmonale present (HCC) Gastrointestinal hemorrhage, unspecified gastrointestinal hemorrhage type Iron deficiency anemia, unspecified iron deficiency anemia type Paroxysmal atrial fibrillation (HCC) Atrial fibrillation Stage 3 chronic renal impairment associated with type 2 diabetes mellitus (HCC) Type II or unspecified type diabetes mellitus with renal manifestations, not stated as uncontrolled Acute mesenteric ischemia (HCC)- Primary Acute vascular insufficiency of intestine MONIQUE (acute kidney injury) Acute kidney failure, unspecified Gastrointestinal hemorrhage, unspecified gastrointestinal hemorrhage type Hypomagnesemia Disorders of magnesium metabolism Physical deconditioning Debility, unspecified Acute on chronic diastolic congestive heart failure (HCC) Acute on chronic diastolic heart failure Hospital discharge follow-up Other follow-up examination [facility] Diagnosis SOB (shortness of breath)- Primary Shortness of breath Hyperlipidemia LDL goal < 70 Other and unspecified hyperlipidemia Diabetes (HCC) Type II or unspecified type diabetes mellitus without mention of complication, not stated as uncontrolled GERD (gastroesophageal reflux disease) Esophageal reflux Chronic anticoagulation Long-term (current) use of anticoagulants Fatigue Other malaise and fatigue H/O rheumatic heart disease Personal history of other diseases of circulatory system A-fib (HCC) Atrial fibrillation Diabetes (HCC)- Primary Type II or unspecified type diabetes mellitus without mention of complication, not stated as uncontrolled Hyperlipidemia LDL goal < 70 Other and unspecified hyperlipidemia HTN (hypertension) Unspecified essential hypertension H/O rheumatic heart disease Personal history of other diseases of circulatory system Fatigue Other malaise and fatigue Chronic anticoagulation Long-term (current) use of anticoagulants SOB (shortness of breath) Shortness of breath Skin lesion Unspecified disorder of skin and subcutaneous tissue A-fib (HCC)- Primary Atrial fibrillation Chronic anticoagulation Long-term (current) use of anticoagulants Routine health maintenance Routine general medical examination at a health care facility Diabetes (HCC) Type II or unspecified type diabetes mellitus without mention of complication, not stated as uncontrolled HTN (hypertension) Unspecified essential hypertension Basal cell carcinoma Basal cell carcinoma of skin, site unspecified CAD (coronary artery disease) Coronary atherosclerosis of unspecified type of vessel, [place] or graft SUMMARY Hyperlipidemia LDL goal < 70 Other and unspecified hyperlipidemia Peripheral vascular disease Peripheral vascular disease, unspecified Diabetes (HCC)- Primary Type II or unspecified type diabetes mellitus without mention of complication, not stated as uncontrolled Left shoulder pain Pain in joint, shoulder region Hyperlipidemia LDL goal < 70 Other and unspecified hyperlipidemia HTN (hypertension) Unspecified essential hypertension Abdominal pain Abdominal pain, unspecified site Routine health maintenance Routine general medical examination at a health care facility Preop examination- Primary Preoperative examination, unspecified Diverticulitis of large intestine with perforation and abscess without bleeding Colovesical fistula Intestinovesical fistula 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) Subarachnoid hemorrhage Bilateral carotid artery stenosis Occlusion and stenosis of carotid artery without mention of cerebral infarction PAD (peripheral artery disease) Peripheral vascular disease, unspecified Type 2 diabetes mellitus without complication, without long-term current use of insulin (HCC) Gastroesophageal reflux disease without esophagitis Esophageal reflux Other persistent atrial fibrillation (HCC) Ascending aorta dilatation Thoracic aortic ectasia Stage 3 chronic renal impairment associated with type 2 diabetes mellitus (HCC) Type II or unspecified type diabetes mellitus with renal manifestations, not stated as uncontrolled Chronic anticoagulation Long-term (current) use of anticoagulants History of prosthetic aortic valve replacement Heart valve replaced by other means Essential hypertension Unspecified essential hypertension Renal mass, right Unspecified disorder of kidney and ureter Acute pulmonary embolism, unspecified pulmonary embolism type, unspecified whether acute cor pulmonale present (HCC) Gastrointestinal hemorrhage, unspecified gastrointestinal hemorrhage type Iron deficiency anemia, unspecified iron deficiency anemia type Paroxysmal atrial fibrillation (HCC) Atrial fibrillation Stage 3 chronic renal impairment associated with type 2 diabetes mellitus (HCC) Type II or unspecified type diabetes mellitus with renal manifestations, not stated as uncontrolled Chronic diastolic congestive heart failure (HCC)- Primary Chronic diastolic heart failure Primary hypertension Unspecified essential hypertension SSS (sick sinus syndrome) (HCC) Sinoatrial node dysfunction Longstanding persistent atrial fibrillation (HCC) Stage 3b chronic kidney disease ([facility]) [facility] Diagnosis SOB (shortness of breath)- Primary Shortness of breath Hyperlipidemia LDL goal < 70 Other and unspecified hyperlipidemia Diabetes (HCC) Type II or unspecified type diabetes mellitus without mention of complication, not stated as uncontrolled GERD (gastroesophageal reflux disease) Esophageal reflux Chronic anticoagulation Long-term (current) use of anticoagulants Fatigue Other malaise and fatigue H/O rheumatic heart disease Personal history of other diseases of circulatory system A-fib (HCC) Atrial fibrillation Diabetes (HCC)- Primary Type II or unspecified type diabetes mellitus without mention of complication, not stated as uncontrolled Hyperlipidemia LDL goal < 70 Other and unspecified hyperlipidemia HTN (hypertension) Unspecified essential hypertension H/O rheumatic heart disease Personal history of other diseases of circulatory system Fatigue Other malaise and fatigue Chronic anticoagulation Long-term (current) use of anticoagulants SOB (shortness of breath) Shortness of breath Skin lesion Unspecified disorder of skin and subcutaneous tissue A-fib (HCC)- Primary Atrial fibrillation Chronic anticoagulation Long-term (current) use of anticoagulants Routine health maintenance Routine general medical examination at a health care facility Diabetes (HCC) Type II or unspecified type diabetes mellitus without mention of complication, not stated as uncontrolled HTN (hypertension) Unspecified essential hypertension Basal cell carcinoma Basal cell carcinoma of skin, site unspecified CAD (coronary artery disease) Coronary atherosclerosis of unspecified type of vessel, [place] or graft SUMMARY Hyperlipidemia LDL goal < 70 Other and unspecified hyperlipidemia Peripheral vascular disease Peripheral vascular disease, unspecified Diabetes (HCC)- Primary Type II or unspecified type diabetes mellitus without mention of complication, not stated as uncontrolled Left shoulder pain Pain in joint, shoulder region Hyperlipidemia LDL goal < 70 Other and unspecified hyperlipidemia HTN (hypertension) Unspecified essential hypertension Abdominal pain Abdominal pain, unspecified site Routine health maintenance Routine general medical examination at a health care facility Preop examination- Primary Preoperative examination, unspecified Diverticulitis of large intestine with perforation and abscess without bleeding Colovesical fistula Intestinovesical fistula 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) Subarachnoid hemorrhage Bilateral carotid artery stenosis Occlusion and stenosis of carotid artery without mention of cerebral infarction PAD (peripheral artery disease) Peripheral vascular disease, unspecified Type 2 diabetes mellitus without complication, without long-term current use of insulin (HCC) Gastroesophageal reflux disease without esophagitis Esophageal reflux Other persistent atrial fibrillation (HCC) Ascending aorta dilatation Thoracic aortic ectasia Stage 3 chronic renal impairment associated with type 2 diabetes mellitus (HCC) Type II or unspecified type diabetes mellitus with renal manifestations, not stated as uncontrolled Chronic anticoagulation Long-term (current) use of anticoagulants History of prosthetic aortic valve replacement Heart valve replaced by other means Essential hypertension Unspecified essential hypertension Renal mass, right Unspecified disorder of kidney and ureter Acute pulmonary embolism, unspecified pulmonary embolism type, unspecified whether acute cor pulmonale present (HCC) Gastrointestinal hemorrhage, unspecified gastrointestinal hemorrhage type Iron deficiency anemia, unspecified iron deficiency anemia type Paroxysmal atrial fibrillation (HCC) Atrial fibrillation Stage 3 chronic renal impairment associated with type 2 diabetes mellitus (HCC) Type II or unspecified type diabetes mellitus with renal manifestations, not stated as uncontrolled History of prosthetic aortic valve replacement- Primary Heart valve replaced by other means Chronic diastolic (congestive) heart failure (HCC) Ascending aorta dilatation Thoracic aortic ectasia Longstanding persistent atrial fibrillation (HCC) S/P placement of cardiac pacemaker Cardiac pacemaker in situ PAD (peripheral artery disease) Peripheral vascular disease, unspecified 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HCC) Acute vascular insufficiency of intestine Hyperlipidemia with target LDL less than 70 Other and unspecified hyperlipidemia Primary hypertension Unspecified essential hypertension Bilateral carotid artery stenosis Occlusion and stenosis of carotid artery without mention of cerebral infarction [facility] SOB (shortness of breath)- Primary Shortness of breath Hyperlipidemia LDL goal < 70 Other and unspecified hyperlipidemia Diabetes (HCC) Type II or unspecified type diabetes mellitus without mention of complication, not stated as uncontrolled GERD (gastroesophageal reflux disease) Esophageal reflux Chronic anticoagulation Long-term (current) use of anticoagulants Fatigue Other malaise and fatigue H/O rheumatic heart disease Personal history of other diseases of circulatory system A-fib (HCC) Atrial fibrillation Diabetes (HCC)- Primary Type II or unspecified type diabetes mellitus without mention of complication, not stated as uncontrolled Hyperlipidemia LDL goal < 70 Other and unspecified hyperlipidemia HTN (hypertension) Unspecified essential hypertension H/O rheumatic heart disease Personal history of other diseases of circulatory system Fatigue Other malaise and fatigue Chronic anticoagulation Long-term (current) use of anticoagulants SOB (shortness of breath) Shortness of breath Skin lesion Unspecified disorder of skin and subcutaneous tissue A-fib (HCC)- Primary Atrial fibrillation Chronic anticoagulation Long-term (current) use of anticoagulants Routine health maintenance Routine general medical examination at a health care facility Diabetes (HCC) Type II or unspecified type diabetes mellitus without mention of complication, not stated as uncontrolled HTN (hypertension) Unspecified essential hypertension Basal cell carcinoma Basal cell carcinoma of skin, site unspecified CAD (coronary artery disease) Coronary atherosclerosis of unspecified type of vessel, [place] or graft SUMMARY Hyperlipidemia LDL goal < 70 Other and unspecified hyperlipidemia Peripheral vascular disease Peripheral vascular disease, unspecified Diabetes (HCC)- Primary Type II or unspecified type diabetes mellitus without mention of complication, not stated as uncontrolled Left shoulder pain Pain in joint, shoulder region Hyperlipidemia LDL goal < 70 Other and unspecified hyperlipidemia HTN (hypertension) Unspecified essential hypertension Abdominal pain Abdominal pain, unspecified site Routine health maintenance Routine general medical examination at a health care facility Preop examination- Primary Preoperative examination, unspecified Diverticulitis of large intestine with perforation and abscess without bleeding Colovesical fistula Intestinovesical fistula 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) Subarachnoid hemorrhage Bilateral carotid artery stenosis Occlusion and stenosis of carotid artery without mention of cerebral infarction PAD (peripheral artery disease) Peripheral vascular disease, unspecified Type 2 diabetes mellitus without complication, without long-term current use of insulin (HCC) Gastroesophageal reflux disease without esophagitis Esophageal reflux Other persistent atrial fibrillation (HCC) Ascending aorta dilatation Thoracic aortic ectasia Stage 3 chronic renal impairment associated with type 2 diabetes mellitus (HCC) Type II or unspecified type diabetes mellitus with renal manifestations, not stated as uncontrolled Chronic anticoagulation Long-term (current) use of anticoagulants History of prosthetic aortic valve replacement Heart valve replaced by other means Essential hypertension Unspecified essential hypertension Renal mass, right Unspecified disorder of kidney and ureter Acute pulmonary embolism, unspecified pulmonary embolism type, unspecified whether acute cor pulmonale present (HCC) Gastrointestinal hemorrhage, unspecified gastrointestinal hemorrhage type Iron deficiency anemia, unspecified iron deficiency anemia type Paroxysmal atrial fibrillation (HCC) Atrial fibrillation Stage 3 chronic renal impairment associated with type 2 diabetes mellitus (HCC) Type II or unspecified type diabetes mellitus with renal manifestations, not stated as uncontrolled Dyspnea on exertion- Primary Other dyspnea and respiratory abnormality Chronic diastolic congestive heart failure (HCC) Chronic diastolic heart failure [facility] Diagnosis SOB (shortness of breath)- Primary Shortness of breath Hyperlipidemia LDL goal < 70 Other and unspecified hyperlipidemia Diabetes (HCC) Type II or unspecified type diabetes mellitus without mention of complication, not stated as uncontrolled GERD (gastroesophageal reflux disease) Esophageal reflux Chronic anticoagulation Long-term (current) use of anticoagulants Fatigue Other malaise and fatigue H/O rheumatic heart disease Personal history of other diseases of circulatory system A-fib (HCC) Atrial fibrillation Diabetes (HCC)- Primary Type II or unspecified type diabetes mellitus without mention of complication, not stated as uncontrolled Hyperlipidemia LDL goal < 70 Other and unspecified hyperlipidemia HTN (hypertension) Unspecified essential hypertension H/O rheumatic heart disease Personal history of other diseases of circulatory system Fatigue Other malaise and fatigue Chronic anticoagulation Long-term (current) use of anticoagulants SOB (shortness of breath) Shortness of breath Skin lesion Unspecified disorder of skin and subcutaneous tissue A-fib (HCC)- Primary Atrial fibrillation Chronic anticoagulation Long-term (current) use of anticoagulants Routine health maintenance Routine general medical examination at a health care facility Diabetes (HCC) Type II or unspecified type diabetes mellitus without mention of complication, not stated as uncontrolled HTN (hypertension) Unspecified essential hypertension Basal cell carcinoma Basal cell carcinoma of skin, site unspecified CAD (coronary artery disease) Coronary atherosclerosis of unspecified type of vessel, [place] or graft SUMMARY Hyperlipidemia LDL goal < 70 Other and unspecified hyperlipidemia Peripheral vascular disease Peripheral vascular disease, unspecified Diabetes (HCC)- Primary Type II or unspecified type diabetes mellitus without mention of complication, not stated as uncontrolled Left shoulder pain Pain in joint, shoulder region Hyperlipidemia LDL goal < 70 Other and unspecified hyperlipidemia HTN (hypertension) Unspecified essential hypertension Abdominal pain Abdominal pain, unspecified site Routine health maintenance Routine general medical examination at a health care facility Preop examination- Primary Preoperative examination, unspecified Diverticulitis of large intestine with perforation and abscess without bleeding Colovesical fistula Intestinovesical fistula 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) Subarachnoid hemorrhage Bilateral carotid artery stenosis Occlusion and stenosis of carotid artery without mention of cerebral infarction PAD (peripheral artery disease) Peripheral vascular disease, unspecified Type 2 diabetes mellitus without complication, without long-term current use of insulin (HCC) Gastroesophageal reflux disease without esophagitis Esophageal reflux Other persistent atrial fibrillation (HCC) Ascending aorta dilatation Thoracic aortic ectasia Stage 3 chronic renal impairment associated with type 2 diabetes mellitus (HCC) Type II or unspecified type diabetes mellitus with renal manifestations, not stated as uncontrolled Chronic anticoagulation Long-term (current) use of anticoagulants History of prosthetic aortic valve replacement Heart valve replaced by other means Essential hypertension Unspecified essential hypertension Renal mass, right Unspecified disorder of kidney and ureter Acute pulmonary embolism, unspecified pulmonary embolism type, unspecified whether acute cor pulmonale present (HCC) Gastrointestinal hemorrhage, unspecified gastrointestinal hemorrhage type Iron deficiency anemia, unspecified iron deficiency anemia type Paroxysmal atrial fibrillation (HCC) Atrial fibrillation Stage 3 chronic renal impairment associated with type 2 diabetes mellitus (HCC) Type II or unspecified type diabetes mellitus with renal manifestations, not stated as uncontrolled History of prosthetic aortic valve replacement- Primary Heart valve replaced by other means Chronic diastolic (congestive) heart failure (HCC) Ascending aorta dilatation Thoracic aortic ectasia Longstanding persistent atrial fibrillation (HCC) PAD (peripheral artery disease) Peripheral vascular disease, unspecified Primary hypertension Unspecified essential hypertension Hyperlipidemia with target LDL less than 70 Other and unspecified hyperlipidemia Acute mesenteric ischemia (HCC) Acute vascular insufficiency of intestine [facility] SOB (shortness of breath)- Primary Shortness of breath Hyperlipidemia LDL goal < 70 Other and unspecified hyperlipidemia Diabetes (HCC) Type II or unspecified type diabetes mellitus without mention of complication, not stated as uncontrolled GERD (gastroesophageal reflux disease) Esophageal reflux Chronic anticoagulation Long-term (current) use of anticoagulants Fatigue Other malaise and fatigue H/O rheumatic heart disease Personal history of other diseases of circulatory system A-fib (HCC) Atrial fibrillation Diabetes (HCC)- Primary Type II or unspecified type diabetes mellitus without mention of complication, not stated as uncontrolled Hyperlipidemia LDL goal < 70 Other and unspecified hyperlipidemia HTN (hypertension) Unspecified essential hypertension H/O rheumatic heart disease Personal history of other diseases of circulatory system Fatigue Other malaise and fatigue Chronic anticoagulation Long-term (current) use of anticoagulants SOB (shortness of breath) Shortness of breath Skin lesion Unspecified disorder of skin and subcutaneous tissue A-fib (HCC)- Primary Atrial fibrillation Chronic anticoagulation Long-term (current) use of anticoagulants Routine health maintenance Routine general medical examination at a health care facility Diabetes (HCC) Type II or unspecified type diabetes mellitus without mention of complication, not stated as uncontrolled HTN (hypertension) Unspecified essential hypertension Basal cell carcinoma Basal cell carcinoma of skin, site unspecified CAD (coronary artery disease) Coronary atherosclerosis of unspecified type of vessel, [place] or graft SUMMARY Hyperlipidemia LDL goal < 70 Other and unspecified hyperlipidemia Peripheral vascular disease Peripheral vascular disease, unspecified Diabetes (HCC)- Primary Type II or unspecified type diabetes mellitus without mention of complication, not stated as uncontrolled Left shoulder pain Pain in joint, shoulder region Hyperlipidemia LDL goal < 70 Other and unspecified hyperlipidemia HTN (hypertension) Unspecified essential hypertension Abdominal pain Abdominal pain, unspecified site Routine health maintenance Routine general medical examination at a health care facility Preop examination- Primary Preoperative examination, unspecified Diverticulitis of large intestine with perforation and abscess without bleeding Colovesical fistula Intestinovesical fistula 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) Subarachnoid hemorrhage Bilateral carotid artery stenosis Occlusion and stenosis of carotid artery without mention of cerebral infarction PAD (peripheral artery disease) Peripheral vascular disease, unspecified Type 2 diabetes mellitus without complication, without long-term current use of insulin (HCC) Gastroesophageal reflux disease without esophagitis Esophageal reflux Other persistent atrial fibrillation (HCC) Ascending aorta dilatation Thoracic aortic ectasia Stage 3 chronic renal impairment associated with type 2 diabetes mellitus (HCC) Type II or unspecified type diabetes mellitus with renal manifestations, not stated as uncontrolled Chronic anticoagulation Long-term (current) use of anticoagulants History of prosthetic aortic valve replacement Heart valve replaced by other means Essential hypertension Unspecified essential hypertension Renal mass, right Unspecified disorder of kidney and ureter Acute pulmonary embolism, unspecified pulmonary embolism type, unspecified whether acute cor pulmonale present (HCC) Gastrointestinal hemorrhage, unspecified gastrointestinal hemorrhage type Iron deficiency anemia, unspecified iron deficiency anemia type Paroxysmal atrial fibrillation (HCC) Atrial fibrillation Stage 3 chronic renal impairment associated with type 2 diabetes mellitus (HCC) Type II or unspecified type diabetes mellitus with renal manifestations, not stated as uncontrolled Chronic diastolic congestive heart failure (HCC)- Primary Chronic diastolic heart failure Primary hypertension Unspecified essential hypertension SSS (sick sinus syndrome) (HCC) Sinoatrial node dysfunction Longstanding persistent atrial fibrillation (HCC) [facility] Diagnosis SOB (shortness of breath)- Primary Shortness of breath Hyperlipidemia LDL goal < 70 Other and unspecified hyperlipidemia Diabetes (HCC) Type II or unspecified type diabetes mellitus without mention of complication, not stated as uncontrolled GERD (gastroesophageal reflux disease) Esophageal reflux Chronic anticoagulation Long-term (current) use of anticoagulants Fatigue Other malaise and fatigue H/O rheumatic heart disease Personal history of other diseases of circulatory system A-fib (HCC) Atrial fibrillation Diabetes (HCC)- Primary Type II or unspecified type diabetes mellitus without mention of complication, not stated as uncontrolled Hyperlipidemia LDL goal < 70 Other and unspecified hyperlipidemia HTN (hypertension) Unspecified essential hypertension H/O rheumatic heart disease Personal history of other diseases of circulatory system Fatigue Other malaise and fatigue Chronic anticoagulation Long-term (current) use of anticoagulants SOB (shortness of breath) Shortness of breath Skin lesion Unspecified disorder of skin and subcutaneous tissue A-fib (HCC)- Primary Atrial fibrillation Chronic anticoagulation Long-term (current) use of anticoagulants Routine health maintenance Routine general medical examination at a health care facility Diabetes (HCC) Type II or unspecified type diabetes mellitus without mention of complication, not stated as uncontrolled HTN (hypertension) Unspecified essential hypertension Basal cell carcinoma Basal cell carcinoma of skin, site unspecified CAD (coronary artery disease) Coronary atherosclerosis of unspecified type of vessel, [place] or graft SUMMARY Hyperlipidemia LDL goal < 70 Other and unspecified hyperlipidemia Peripheral vascular disease Peripheral vascular disease, unspecified Diabetes (HCC)- Primary Type II or unspecified type diabetes mellitus without mention of complication, not stated as uncontrolled Left shoulder pain Pain in joint, shoulder region Hyperlipidemia LDL goal < 70 Other and unspecified hyperlipidemia HTN (hypertension) Unspecified essential hypertension Abdominal pain Abdominal pain, unspecified site Routine health maintenance Routine general medical examination at a health care facility Preop examination- Primary Preoperative examination, unspecified Diverticulitis of large intestine with perforation and abscess without bleeding Colovesical fistula Intestinovesical fistula 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) Subarachnoid hemorrhage Bilateral carotid artery stenosis Occlusion and stenosis of carotid artery without mention of cerebral infarction PAD (peripheral artery disease) Peripheral vascular disease, unspecified Type 2 diabetes mellitus without complication, without long-term current use of insulin (HCC) Gastroesophageal reflux disease without esophagitis Esophageal reflux Other persistent atrial fibrillation (HCC) Ascending aorta dilatation Thoracic aortic ectasia Stage 3 chronic renal impairment associated with type 2 diabetes mellitus (HCC) Type II or unspecified type diabetes mellitus with renal manifestations, not stated as uncontrolled Chronic anticoagulation Long-term (current) use of anticoagulants History of prosthetic aortic valve replacement Heart valve replaced by other means Essential hypertension Unspecified essential hypertension Renal mass, right Unspecified disorder of kidney and ureter Acute pulmonary embolism, unspecified pulmonary embolism type, unspecified whether acute cor pulmonale present (HCC) Gastrointestinal hemorrhage, unspecified gastrointestinal hemorrhage type Iron deficiency anemia, unspecified iron deficiency anemia type Paroxysmal atrial fibrillation (HCC) Atrial fibrillation Stage 3 chronic renal impairment associated with type 2 diabetes mellitus (HCC) Type II or unspecified type diabetes mellitus with renal manifestations, not stated as uncontrolled Superior mesenteric artery stenosis (HCC)- Primary Chronic vascular insufficiency of intestine [facility] Diagnosis SOB (shortness of breath)- Primary Shortness of breath Hyperlipidemia LDL goal < 70 Other and unspecified hyperlipidemia Diabetes (HCC) Type II or unspecified type diabetes mellitus without mention of complication, not stated as uncontrolled GERD (gastroesophageal reflux disease) Esophageal reflux Chronic anticoagulation Long-term (current) use of anticoagulants Fatigue Other malaise and fatigue H/O rheumatic heart disease Personal history of other diseases of circulatory system A-fib (HCC) Atrial fibrillation Diabetes (HCC)- Primary Type II or unspecified type diabetes mellitus without mention of complication, not stated as uncontrolled Hyperlipidemia LDL goal < 70 Other and unspecified hyperlipidemia HTN (hypertension) Unspecified essential hypertension H/O rheumatic heart disease Personal history of other diseases of circulatory system Fatigue Other malaise and fatigue Chronic anticoagulation Long-term (current) use of anticoagulants SOB (shortness of breath) Shortness of breath Skin lesion Unspecified disorder of skin and subcutaneous tissue A-fib (HCC)- Primary Atrial fibrillation Chronic anticoagulation Long-term (current) use of anticoagulants Routine health maintenance Routine general medical examination at a health care facility Diabetes (HCC) Type II or unspecified type diabetes mellitus without mention of complication, not stated as uncontrolled HTN (hypertension) Unspecified essential hypertension Basal cell carcinoma Basal cell carcinoma of skin, site unspecified CAD (coronary artery disease) Coronary atherosclerosis of unspecified type of vessel, [place] or graft SUMMARY Hyperlipidemia LDL goal < 70 Other and unspecified hyperlipidemia Peripheral vascular disease Peripheral vascular disease, unspecified Diabetes (HCC)- Primary Type II or unspecified type diabetes mellitus without mention of complication, not stated as uncontrolled Left shoulder pain Pain in joint, shoulder region Hyperlipidemia LDL goal < 70 Other and unspecified hyperlipidemia HTN (hypertension) Unspecified essential hypertension Abdominal pain Abdominal pain, unspecified site Routine health maintenance Routine general medical examination at a health care facility Preop examination- Primary Preoperative examination, unspecified Diverticulitis of large intestine with perforation and abscess without bleeding Colovesical fistula Intestinovesical fistula 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) Subarachnoid hemorrhage Bilateral carotid artery stenosis Occlusion and stenosis of carotid artery without mention of cerebral infarction PAD (peripheral artery disease) Peripheral vascular disease, unspecified Type 2 diabetes mellitus without complication, without long-term current use of insulin (HCC) Gastroesophageal reflux disease without esophagitis Esophageal reflux Other persistent atrial fibrillation (HCC) Ascending aorta dilatation Thoracic aortic ectasia Stage 3 chronic renal impairment associated with type 2 diabetes mellitus (HCC) Type II or unspecified type diabetes mellitus with renal manifestations, not stated as uncontrolled Chronic anticoagulation Long-term (current) use of anticoagulants History of prosthetic aortic valve replacement Heart valve replaced by other means Essential hypertension Unspecified essential hypertension Renal mass, right Unspecified disorder of kidney and ureter Acute pulmonary embolism, unspecified pulmonary embolism type, unspecified whether acute cor pulmonale present (HCC) Gastrointestinal hemorrhage, unspecified gastrointestinal hemorrhage type Iron deficiency anemia, unspecified iron deficiency anemia type Paroxysmal atrial fibrillation (HCC) Atrial fibrillation Stage 3 chronic renal impairment associated with type 2 diabetes mellitus (HCC) Type II or unspecified type diabetes mellitus with renal manifestations, not stated as uncontrolled Chronic diastolic (congestive) heart failure (HCC)- Primary History of prosthetic aortic valve replacement Heart valve replaced by other means Paroxysmal atrial fibrillation (HCC) Atrial fibrillation PAD (peripheral artery disease) Peripheral vascular disease, unspecified Primary hypertension Unspecified essential hypertension Acute on chronic diastolic congestive heart failure (HCC) Acute on chronic diastolic heart failure Hyperlipidemia with target LDL less than 70 Other and unspecified hyperlipidemia documented in this encounter [facility] for referral (narrative)* Diagnostic Procedure Only (Routine) - Closed Specialty Diagnoses / Procedures Referred By Leilani ng Referred To Contact XR IMAGING Diagnoses Ischial bursitis of left side Procedures XR HIP GENERAL 3V PELV/AP/LAT LEFT RADEX HIP UNILATERAL WITH PELVIS 2-3 VIEWS Doreen Le PA-C [address] [place] [address] Xr Imaging Referral ID Status Reason Start Date Expiration Date V isits Requested Visits Authorized [id number] Closed Auto-Generate d Referral 12/15/2021 01/14/2023 1 1 [facility] for referral (narrative)* Outpatient Procedure (Routine) - Pending Review Specialty Diagnoses / Procedures Referred By Leilani ng Referred To Contact [facility] Diagnoses Acute blood loss anemia Heme + stool Epigastric pain Procedures EGD DIAGNOSTIC ESOPHAGOGASTRODUODENOSC OPY TRANSORAL DIAGNOSTIC REFERRAL TO [facility] FINANCIAL COUNSELOR Chai Encinas MD [address] [place] [address] [facility] [place] [address] [place] [id number] Referral ID Status Reason Start Date Expiration Date Visits Requested Visits Authorized [id number] Pending Review Auto-Generated Referral 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 OON Notification Letter Patient Cleared - Admin/Clothes Ironer/D irector advise to proceed 04/01/2022 1 1 [facility] for referral (narrative)* Outpatient Procedure (Routine) - Closed Specialty Diagnoses / Procedures Referred By Leilani ng Referred To Contact Diagnoses Acute blood loss anemia Heme + stool Epigastric pain Procedures EGD DIAGNOSTIC ESOPHAGOGASTRODUODENOSCOPY TRANSORAL DIAGNOSTIC REFERRAL TO [facility] FINANCIAL COUNSELOR Chai Encinas MD [facility] [address] [facility] [facility] [address] [place] [address] [facility] [place] [address] [place] [address] Referral ID Status Reason Start Date Expiration Date Visits Requested Visits Authorized [id number] Closed Auto-Generated Referral 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 OON Notification Letter Patient Cleared - Admin/Clothes Ironer/D irector advise to proceed 01/01/2022 07/04/2022 1 1 [facility] for referral (narrative)* Outpatient Procedure (Routine) - Pending Review Specialty Diagnoses / Procedures Referred By Leilani ng Referred To Contact [facility] Diagnoses Paroxysmal atrial fibrillation (HCC) Procedures ECHO TRANSESOPHAGEAL ECHO TRANSESOPHAG R-T 2D W/PRB IMG LINUS I&R Candi Beauchamp, VOLUNTEER SERVICES ASSISTANT.SIGN BOARD ERECTOR [address] [place] [address] [facility] [place] [address] [place] [address] Referral ID Status Reason Start Date Expiration Date Visits Requested Visits Authorized [id number] Pending Review Auto-Generat ed Referral 01/21/2022 01/21/2023 1 1 * Outpatient Procedure (Routine) - Pending Review Specialty Diagnoses / Procedures Referred By Contac t Referred To Contact [facility] Diagnoses Paroxysmal atrial fibrillation (HCC) Procedures ECG COMPLETE ECG ROUTINE ECG W/LEAST 12 LDS W/I&R Candi Beauchamp APRN.CNP [address] CALVERT [facility] [place] [address] [facility] [place] [address] [id number] Referral ID Status Reason Start Date Expiration Date Visits Requested Visits Authorized [id number] Pending Review Auto-Generat ed Referral 01/21/2022 01/21/2023 1 1 * Outpatient Procedure (Routine) - Pending Review Specialty Diagnoses / Procedures Referred By Contac t Referred To Contact [facility] Diagnoses Paroxysmal atrial fibrillation (HCC) Procedures ECHO TRANSESOPHAGEAL ECHO TRANSESOPHAG R-T 2D W/PRB IMG ACQUISGlenna I&R Candi Beauchamp APRN.SIGN BOARD ERECTOR [address] WINKLERKarinaBoxstar Media [facility] [place] [phone] [facility] [place] [address] WEAVERKellen [place] [phone] Referral ID Status Reason Start Date Expiration Date Visits Requested Visits Authorized [id number] Pending Review Auto-Generat ed Referral 01/21/2022 01/21/2023 1 1 [facility] for referral (narrative)* Outpatient Procedure (Routine) - Pending Review Specialty Diagnoses / Procedures Referred By Contac t Referred To Contact [facility] Diagnoses Paroxysmal atrial fibrillation (HCC) Presence of Watchman left atrial appendage closure device Procedures ECHO TRANSESOPHAGEAL ECHO TRANSESOPHAG R-T 2D W/PRB IMG ACQUISGlenna I&R Candi Beauchamp APRN.CNP [address] PETERSONKarinaBoxstar Media VERONICA [facility] [place] [address] [facility] [place] [address] LANIEMARGRET PETERSONKarina [place] [phone] Referral ID Status Reason Start Date Expiration Date Visits Requested Visits Authorized [id number] Pending Review Auto-Generat ed Referral 02/09/2022 02/09/2023 1 1 * Outpatient Procedure (Routine) - Pending Review Specialty Diagnoses / Procedures Referred By Contac t Referred To Contact [facility] Diagnoses Paroxysmal atrial fibrillation (HCC) Presence of Watchman left atrial appendage closure device Procedures ECG COMPLETE ECG ROUTINE ECG W/LEAST 12 LDS W/I&R Candi Beauchamp APRN.SIGN BOARD ERECTOR [address], [address] [place] [phone] [facility] [address] [place] [phone] Referral ID Status Reason Start Date Expiration Date Visits Requested Visits Authorized [id number] Pending Review Auto-Generat ed Referral 02/09/2022 02/09/2023 1 1 * Outpatient Procedure (Routine) - Pending Review Specialty Diagnoses / Procedures Referred By Contac t Referred To Contact [facility] Diagnoses Paroxysmal atrial fibrillation (HCC) Presence of Watchman left atrial appendage closure device Procedures ECHO TRANSESOPHAGEAL ECHO TRANSESOPHAG R-T 2D W/PRB IMG ACQUISJ I&R Candi Beauchamp APRN.SIGN BOARD ERECTOR [address], [address] [place] [phone] [facility] [address] [place] [id number] Referral ID Status Reason Start Date Expiration Date Visits Requested Visits Authorized [id number] Pending Review Auto-Generat ed Referral 02/09/2022 02/09/2023 1 1 [facility] for referral (narrative)* Outpatient Procedure (Routine) - Pending Review Specialty Diagnoses / Procedures Referred By Contac t Referred To Contact [facility] Diagnoses Longstanding persistent atrial fibrillation (HCC) Presence of Watchman left atrial appendage closure device Procedures ECHO TRANSESOPHAGEAL ECHO TRANSESOPHAG R-T 2D W/PRB IMG ACQUNYDIA I&Radha Sherman APRN.CNP [address] [place] [address] [place] [phone] [place] [address] Referral ID Status Reason Start Date Expiration Date Visits Requested Visits Authorized [id number] Pending Review Auto-Generat ed Referral 03/04/2022 03/04/2023 1 1 [facility] for referral (narrative)* Outpatient Procedure (Routine) - Authorized Specialty Diagnoses / Procedures Referred By Leilani ng Referred To Contact [facility] Diagnoses Aortic prosthetic valve regurgitation, 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) Procedures ECG COMPLETE ECG ROUTINE ECG W/LEAST 12 LDS W/I&R Doreen Le PA-C [address] [place] [address] [address] Referral ID Status Reason Start Date Expiration Date Visits Requested Visits Authorized [id number] Authorized Auto-Generat ed Referral 03/19/2022 03/19/2023 1 1 [facility] for referral (narrative)* Diagnostic Procedure Only (Routine) - Authorized Specialty Diagnoses / Procedures Referred By Leilani ng Referred To Contact [facility] Diagnoses Neoplasm of uncertain behavior of right kidney Procedures US KIDNEY/BLADDER US RETROPERITONEAL REAL TIME W/IMAGE COMPLETE Brayan Chicas MD [address] [place] [address] [facility] Referral ID Status Reason Start Date Expiration Date Visits Requested Visits Authorized [id number] Authorized Auto-Generat ed Referral 09/02/2022 05/09/2023 1 1 [facility] for referral (narrative)* Outpatient Procedure (Routine) - Authorized Specialty Diagnoses / Procedures Referred By Contac t Referred To Contact [facility] Diagnoses History of prosthetic aortic valve replacement H/O rheumatic heart disease Procedures ECHO ECHO TTHRC R-T 2D W/WOM-MODE COMPL SPEC&COLR Carla Soliz MD [address] [place] [address] [place] [address] Referral ID Status Reason Start Date Expiration Date Visits Requested Visits Authorized [id number] Authorized Auto-Generat ed Referral 03/05/2023 09/28/2023 1 1 [facility] for referral (narrative)* Outpatient Procedure (Routine) - Pending Review Specialty Diagnoses / Procedures Referred By Contac t Referred To [facility] Diagnoses 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HCC) Pain in both lower legs Atherosclerosis of [place] artery of both lower extremities with intermittent claudication (HCC) Procedures PVR LEG [facility] NON-INVASIVE PHYSIOLOGIC STUDY EXTREMITY 3 LEVLS Dorene Le PA-C [address] [place] [address] [facility] [address] [address] Referral ID Status Reason Start Date Expiration Date Visits Requested Visits Authorized [id number] Pending Review Auto-Generat ed Referral 01/07/2023 01/07/2024 1 1 * Outpatient Procedure (Routine) - Pending Review Specialty Diagnoses / Procedures Referred By Contac t Referred To [facility] Diagnoses 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HCC) Pain in both lower legs Atherosclerosis of [place] artery of both lower extremities with intermittent claudication (HCC) Procedures PVR ANK PRESS [facility] NON-INVAS PHYSIOLOGIC STD EXTREMITY ART 2 LEVEL Doreen Le PA-C [address] [place] [address] [facility] [address] [address] Referral ID Status Reason Start Date Expiration Date Visits Requested Visits Authorized [id number] Pending Review Auto-Generat ed Referral 01/07/2023 01/07/2024 1 1 * Outpatient Procedure (Routine) - Authorized Specialty Diagnoses / Procedures Referred By Contac t Referred To Contact [facility] Diagnoses Bilateral carotid artery stenosis Procedures US CAROTID ARTERIES [facility] DUPLEX SCAN EXTRACRANIAL ART COMPL BI STUDY Doreen Le PA-C [address] [place] [address] [facility] [place] [address] [place] [address] Referral ID Status Reason Start Date Expiration Date Visits Requested Visits Authorized [id number] Authorized Auto-Generat ed Referral 01/07/2023 01/07/2024 1 1 [facility] for referral (narrative)* Diagnostic Procedure Only (Routine) - Closed Specialty Diagnoses / Procedures Referred By Contac t Referred To Contact [facility] Diagnoses Neoplasm of uncertain behavior of right kidney Procedures US KIDNEY/BLADDER US RETROPERITONEAL REAL TIME W/IMAGE COMPLETE Brayan Chicas MD [address] [place] [address] [place] [address] Referral ID Status Reason Start Date Expiration Date V isits Requested Visits Authorized [id number] Closed Auto-Generate d Referral 09/02/2022 05/09/2023 1 1 [facility] for referral (narrative)* Outpatient Procedure (Routine) - Authorized Specialty Diagnoses / Procedures Referred By Contac t Referred To Contact [facility] Diagnoses Acute systolic CHF (congestive heart failure) (HCC) Procedures ECHO ECHO TTHRC R-T 2D W/WOM-MODE COMPL SPEC&COLR D Doreen Le PA-C [address] [place] [address] [facility] [address] [address] Referral ID Status Reason Start Date Expiration Date Visits Requested Visits Authorized [id number] Authorized Auto-Generat ed Referral 10/18/2023 10/17/2024 1 1 * Outpatient Procedure (Routine) - Pending Review Specialty Diagnoses / Procedures Referred By Contac t Referred To Contact [facility] Diagnoses Acute systolic CHF (congestive heart failure) (HCC) Procedures ECG COMPLETE ECG ROUTINE ECG W/LEAST 12 LDS W/I&R Doreen Le PA-C [address] [place] [address] [address] Referral ID Status Reason Start Date Expiration Date Visits Requested Visits Authorized [id number] Pending Review Auto-Generat ed Referral 10/18/2023 10/17/2024 1 1 [facility] for referral (narrative)* Outpatient Procedure (Routine) - Closed Specialty Diagnoses / Procedures Referred By Contac t Referred To Contact [facility] Diagnoses Venous insufficiency Procedures US LEG VEIN DVT [facility] DUP-SCAN XTR VEINS COMPLETE BILATERAL STUDY Lars Silva DO [address] [place] [address] [place] [address] Referral ID Status Reason Start Date Expiration Date V isits Requested Visits Authorized [id number] Closed Auto-Generate d Referral 10/14/2023 10/13/2024 1 1 [facility] for referral (narrative)* Diagnostic Procedure Only (Routine) - Closed Specialty Diagnoses / Procedures Referred By Contac t Referred To Contact [facility] Diagnoses Closed nondisplaced fracture of fifth metatarsal bone of right foot with routine healing, subsequent encounter Procedures XR FOOT GENERAL 3V AP/LAT/OBL RIGHT RADEX FOOT COMPLETE MINIMUM 3 VIEWS Doreen Le PA-C [address] [place] [address] [place] [address] Referral ID Status Reason Start Date Expiration Date V isits Requested Visits Authorized [id number] Closed Auto-Generate d Referral 06/01/2023 06/30/2024 1 1 [facility] for referral (narrative)* Diagnostic Procedure Only (Routine) - Closed Specialty Diagnoses / Procedures Referred By Contac t Referred To Contact [facility] Diagnoses Pain of right middle finger Procedures XR DIGIT GENERAL 3V FRONTAL/LAT/OBL RIGHT RADEX FINGR MINIMUM 2 VIEWS Doreen Le PA-C [address] [place] [address] [place] [address] Referral ID Status Reason Start Date Expiration Date V isits Requested Visits Authorized [id number] Closed Auto-Generate d Referral 04/12/2023 05/11/2024 1 1 T [facility] for referral (narrative)* Diagnostic Procedure Only (Routine) - Closed Specialty Diagnoses / Procedures Referred By Contac t Referred To Contact [facility] Diagnoses Ischial bursitis of left side Procedures XR HIP GENERAL 3V PELV/AP/LAT LEFT RADEX HIP UNILATERAL WITH PELVIS 2-3 VIEWS Doreen Le PA-C [address] [place] [address] [place] [address] Referral ID Status Reason Start Date Expiration Date V isits Requested Visits Authorized [id number] Closed Auto-Generate d Referral 12/15/2021 01/14/2023 1 1 [facility] for visit Narrative* Outpatient Procedure (Routine) - Closed Specialty Diagnoses / Procedures Referred By Contac t Referred To Contact Diagnoses Acute blood loss anemia Heme + stool Epigastric pain Procedures EGD DIAGNOSTIC ESOPHAGOGASTRODUODENOSCOPY TRANSORAL DIAGNOSTIC REFERRAL TO [facility] FINANCIAL COUNSELOR Chai Encinas MD [address] [place] [address] [facility] [place] [address] [place] [address] Referral ID Status Reason Start Date Expiration Date Visits Requested Visits Authorized [id number] Closed Auto-Generated Referral 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 OON Notification Letter Patient Cleared - Admin/Clothes Ironer/D irector advise to proceed 01/01/2022 07/04/2022 1 1 [facility] for visit Narrative* Diagnostic Procedure Only (Routine) - Closed Specialty Diagnoses / Procedures Referred By Leilani ng Referred To Contact Laboratory Medicine / LAB COVID TESTING LL Lot Diagnoses Paroxysmal atrial fibrillation PRE-PROCEDURE & PRE-OPERATIVE COVID Paroxysmal atrial fibrillation (HCC) [I48.0] Procedures COVID19 LAB COVID Chandler Swan MD [address] [place] [address] [place] [id number] [facility] [place] [address] Referral ID Status Reason Start Date Expiration Date Visits Re quested Visits Authorized [id number] Closed 01/09/2022 07/04/2022 1 1 [facility] for visit Narrative* Diagnostic Procedure Only (Routine) - Closed Specialty Diagnoses / Procedures Referred By Leilani ng Ref[facility] Diagnoses Paroxysmal atrial fibrillation (HCC) Presence of Watchman left atrial appendage closure device Procedures ECHO TRANSESOPHAGEAL ECHO TRANSESOPHAG R-T 2D W/PRB IMG LINUS I&R Candi Beauchamp, VOLUNTEER SERVICES ASSISTANT.SIGN BOARD ERECTOR [address], [address] [place] [address] [facility] [place] [address] [place] [address] Referral ID Status Reason Start Date Expiration Date V isits Requested Visits Authorized [id number] Closed Auto-Generate d Referral 02/09/2022 07/04/2022 1 1 [facility] for visit Narrative* Diagnostic Procedure Only (Routine) - Closed Specialty Diagnoses / Procedures Referred By Leilani ng Referred To Contact [facility] Diagnoses Closed nondisplaced fracture of fifth metatarsal bone of right foot with routine healing, subsequent encounter Procedures XR FOOT GENERAL 3V AP/LAT/OBL RIGHT RADEX FOOT COMPLETE MINIMUM 3 VIEWS Doreen Le PA-C [address] [place] [address] [place] [address] Referral ID Status Reason Start Date Expiration Date V isits Requested Visits Authorized [id number] Closed Auto-Generate d Referral 06/01/2023 06/30/2024 1 1 [facility] for visit Narrative* Diagnostic Procedure Only (Routine) - Closed Specialty Diagnoses / Procedures Referred By Contac t Referred To Contact [facility] Diagnoses Pain of right middle finger Procedures XR DIGIT GENERAL 3V FRONTAL/LAT/OBL RIGHT RADEX FINGR MINIMUM 2 VIEWS Doreen Le PA-C [address] [place] [address] [place] [address] Referral ID Status Reason Start Date Expiration Date V isits Requested Visits Authorized [id number] Closed Auto-Generate d Referral 04/12/2023 05/11/2024 1 1 [facility] for visit Narrative* Diagnostic Procedure Only (Routine) - Closed Specialty Diagnoses / Procedures Referred By Contac t Referred To Contact [facility] Diagnoses Ischial bursitis of left side Procedures XR HIP GENERAL 3V PELV/AP/LAT LEFT RADEX HIP UNILATERAL WITH PELVIS 2-3 VIEWS Doreen Le PA-C [address] [place] [address] [place] [address] Referral ID Status Reason Start Date Expiration Date V isits Requested Visits Authorized [id number] Closed Auto-Generate d Referral 12/15/2021 01/14/2023 1 1 [facility] Summary Purpose Family History No Family History Records Found Relationship Condition Age at Onset Recorded Date/T gabrielle father Cardiac disease Unknown High blood cholesterol Unknown mother Cardiac disease Unknown Advance Directives No Advanced Directives Records Found Date Activated Date Inactivated Comments 12/10/2024 2:26 PM 12/12/2024 1:52 PM Question Answer Comments Full Code Order Discussed With: Patient Date Activated Date Inactivated Comments 12/10/2024 2:26 PM 12/10/2024 2:26 PM Question Answer Comments Full Code Order Discussed With: Patient Date Activated Date Inactivated Comments 11/09/2023 2:19 PM 11/12/2023 6:58 PM Question Answer Comments DNR Order Discussed With: PatientSurrogate Decis ion Maker Date Activated Date Inactivated Comments 03/19/2022 8:15 PM 03/22/2022 7:27 PM Question Answer Comments Full Code Order Discussed With: Patient Date Activated Date Inactivated Comments 12/10/2024 2:26 PM Date Activated Date Inactivated Comments 11/09/2023 2:19 PM 11/12/2023 6:58 PM Question Answer Comments DNR Order Discussed With: PatientSurrogate Decis ion Maker Date Activated Date Inactivated Comments 03/19/2022 8:15 PM 03/22/2022 7:27 PM Documents on File Type Date Recorded Patient It Director Expl anation Advance Directive(s) 02/26/2021 11:31 AM Advance Directive(s) 10/02/2020 4:46 PM Advance Directive(s) 10/24/2019 6:40 PM Advance Directive(s) 07/18/2019 8:41 AM Advance Directive(s) 06/21/2019 9:34 AM Advance Directive(s) 05/04/2019 8:22 AM Advance Directive(s) 03/22/2019 7:15 AM Advance Directive(s) 08/31/2015 1:42 PM Advance Directive(s) 08/20/2015 4:21 PM Documents on File Type Date Recorded Patient It Director Expl anation Advance Directive(s) 02/26/2021 11:31 AM Advance Directive(s) 10/02/2020 4:46 PM Advance Directive(s) 10/24/2019 6:40 PM Advance Directive(s) 07/18/2019 8:41 AM Advance Directive(s) 06/21/2019 9:34 AM Advance Directive(s) 05/04/2019 8:22 AM Advance Directive(s) 03/22/2019 7:15 AM Advance Directive(s) 08/31/2015 1:42 PM Advance Directive(s) 08/20/2015 4:21 PM Documents on File Type Date Recorded Patient It Director Expl anation Advance Directive(s) 12/23/2021 1:13 PM Advance Directive(s) 02/26/2021 11:31 AM Advance Directive(s) 10/02/2020 4:46 PM Advance Directive(s) 10/24/2019 6:40 PM Advance Directive(s) 07/18/2019 8:41 AM Advance Directive(s) 06/21/2019 9:34 AM Advance Directive(s) 05/04/2019 8:22 AM Advance Directive(s) 03/22/2019 7:15 AM Advance Directive(s) 08/31/2015 1:42 PM Advance Directive(s) 08/20/2015 4:21 PM Documents on File Type Date Recorded Patient It Director Expl anation Advance Directive(s) 12/23/2021 1:13 PM Advance Directive(s) 02/26/2021 11:31 AM Advance Directive(s) 10/02/2020 4:46 PM Advance Directive(s) 10/24/2019 6:40 PM Advance Directive(s) 07/18/2019 8:41 AM Advance Directive(s) 06/21/2019 9:34 AM Advance Directive(s) 05/04/2019 8:22 AM Advance Directive(s) 03/22/2019 7:15 AM Advance Directive(s) 08/31/2015 1:42 PM Advance Directive(s) 08/20/2015 4:21 PM Documents on File Type Date Recorded Patient It Director Expl anation Advance Directive(s) 01/02/2022 8:28 AM Advance Directive(s) 12/23/2021 1:13 PM Advance Directive(s) 02/26/2021 11:31 AM Advance Directive(s) 10/02/2020 4:46 PM Advance Directive(s) 10/24/2019 6:40 PM Advance Directive(s) 07/18/2019 8:41 AM Advance Directive(s) 06/21/2019 9:34 AM Advance Directive(s) 05/04/2019 8:22 AM Advance Directive(s) 03/22/2019 7:15 AM Advance Directive(s) 08/31/2015 1:42 PM Advance Directive(s) 08/20/2015 4:21 PM Advance Directive Response Recorded Date/ Time Advance Directives No July 13, 2015 4:56pm Living Will No February 13 6:44pm Power of Negative Turner Apprentice No February 13 021 6:44pm Documents on File Type Date Recorded Patient It Director Expl anation Advance Directive(s) 01/02/2022 8:28 AM Advance Directive(s) 12/23/2021 1:13 PM Advance Directive(s) 02/26/2021 11:31 AM Advance Directive(s) 10/02/2020 4:46 PM Advance Directive(s) 10/24/2019 6:40 PM Advance Directive(s) 07/18/2019 8:41 AM Advance Directive(s) 06/21/2019 9:34 AM Advance Directive(s) 05/04/2019 8:22 AM Advance Directive(s) 03/22/2019 7:15 AM Advance Directive(s) 08/31/2015 1:42 PM Advance Directive(s) 08/20/2015 4:21 PM Latest Code Status on File Code Status Date Activated Date Inactivated Comments Full Code 03/19/2022 8:15 PM Full Code Order Discussed With: Patient Latest Code Status on File Code Status Date Activated Date Inactivated Comments Full Code 03/19/2022 8:15 PM Latest Code Status on File Code Status Date Activated Date Inactivated Comments Full Code 03/19/2022 8:15 PM 03/22/2022 7:27 PM Latest Code Status on File Code Status Date Activated Date Inactivated Comments Full Code 03/19/2022 8:15 PM 03/22/2022 7:27 PM Latest Code Status on File Code Status Date Activated Date Inactivated Comments Full Code 03/19/2022 8:15 PM 03/22/2022 7:27 PM Question Answer Comments Full Code Order Discussed With: Patient Latest Code Status on File Code Status Date Activated Date Inactivated Comments Full Code 03/19/2022 8:15 PM 03/22/2022 7:27 PM Question Answer Comments Full Code Order Discussed With: Patient Date Activated Date Inactivated Comments 03/19/2022 8:15 PM 03/22/2022 7:27 PM Date Activated Date Inactivated Comments 03/19/2022 8:15 PM 03/22/2022 7:27 PM Question Answer Comments Full Code Order Discussed With: Patient Date Activated Date Inactivated Comments 11/09/2023 2:19 PM Question Answer Comments DNR Order Discussed With: PatientSurrogate Decis ion Maker Date Activated Date Inactivated Comments 03/19/2022 8:15 PM 03/22/2022 7:27 PM Question Answer Comments Full Code Order Discussed With: Patient Date Activated Date Inactivated Comments 11/09/2023 2:19 PM Date Activated Date Inactivated Comments 11/09/2023 2:19 PM 11/12/2023 6:58 PM Date Activated Date Inactivated Comments 12/10/2024 2:26 PM 12/12/2024 1:52 PM Date Activated Date Inactivated Comments 12/10/2024 2:26 PM 12/10/2024 2:26 PM Date Activated Date Inactivated Comments 11/09/2023 2:19 PM 11/12/2023 6:58 PM Question Answer Comments DNR Order Discussed With: PatientSurrogate Decis ion Maker Date Activated Date Inactivated Comments 03/19/2022 8:15 PM 03/22/2022 7:27 PM Question Answer Comments Full Code Order Discussed With: Patient History of Present Illness * Mars Chung DO - 01/19/2019 10:00 AM EDT Pertinent cardiac diagnoses Aortic stenosis - AVR 1996, mild prosthetic AI MR - moderate HTN HL DM PAD Cerebral aneurysm - coiled Obesity PAF - cardioversion 2012, 12/20 [facility]ADAR - never tested Sinus pavan - on sotalol, now persistent atrial fibrillation CRF History of Present Illness 73 y.o. female here for second opinion regarding her atrial fibrillation. Previously seen by me at [facility]. At that time she had paroxysmal atrial fibrillation and has been on sotalol. She has had 2 previous cardioversions but unfortunately has reverted back to atrial fibrillation. Resting heart rates have been in the low 100s. Some shortness of breath with activity and fatigue. No signs or symptoms or congestive heart failure nor classic angina. Last echocardiogram 10/2018 CONCLUSIONS: - Exam indication: Routine surveillance of prosthetic valve (>3yrs) - The left ventricle is severely dilated. There is mild concentric left ventricular hypertrophy. Left ventricular systolic function is normal. EF = 56 5% (2D biplane) Definity contrast used for endocardial border detection. Indeterminate left ventricular diastolic dysfunction due to inconsistent or technically suboptimal data. - The right ventricle is normal in size. Right ventricular systolic function is normal. - The left atrial cavity is severely dilated. - There is moderate (2+) mitral valve regurgitation. Regurgitant orifice area (PISA) is 0.17 cm . - Cryolife prosthetic aortic valve (size #28). There is mild (1+ - 2+) aortic valve regurgitation. The peak gradient is 24 mmHg, the mean gradient is 14 mmHg and the dimensionless valve index is 0.36. - Exam was compared with the prior CC echocardiographic exam performed on 11/19/2016, Moderate MR and AI has not progressed. Allergies Allergen Reactions Metformin Diarrhea Outpatient Medications Prior to Visit Medication Sig Dispense Refill amLODIPine 5 MG Tab tablet amlodipine 5 mg tablet TAKE ONE TABLET BY MOUTH ONCE DAILY aspirin EC [address] Take 81 mg by mouth daily. Calcium Carbonate (CALCIUM 600 PO) Take by mouth. One tab daily Cholestyramine Light (QUESTRAN LIGHT) 4 GM/DOSE Powder Take 210 g by mouth Daily (with dinner). Coenzyme Q10 (COQ10 PO) Take by mouth. One tab daily furOSEmide 20 MG Tab tablet Take 40 mg by mouth Daily (with dinner). lisinopril (ZESTRIL) 40 MG Tab tablet Take 40 mg by mouth Daily (with dinner). Multiple Vitamin (MULTI-VITAMIN) Tab Take 1 tablet by mouth Daily (with dinner). Potassium 99 MG Tab Take by mouth. One tab per day simvastatin 40 MG Tab 1 XARELTO 20 MG tablet TAKE 1 TABLET BY MOUTH ONCE DAILY WITH DINNER 1 sotalol 80 MG Tab tablet one tab in the AM and 1/2 tab in the PM No facility-administered medications prior to visit. No family history on file. has no past surgical history on file. Social History Socioeconomic History Marital status: Spouse name: Not on file Number of children: Not on file Years of education: Not on file Highest education level: Not on file Occupational History Not on file Social Needs Financial resource strain: Not on file Food insecurity: Worry: Not on file Inability: Not on file Transportation needs: Medical: Not on file Non-medical: Not on file Tobacco Use Smoking status: Former Smoker Smokeless tobacco: Never Used Tobacco comment: smoked for a year, 50 years ago Substance and Sexual Activity Alcohol use: Yes Comment: occasional wine Drug use: Never Sexual activity: Not on file Lifestyle Physical activity: Days per week: Not on file Minutes per session: Not on file Stress: Not on file Relationships Social connections: Talks on phone: Not on file Gets together: Not on file Attends christianity service: Not on file Active member of club or organization: Not on file Attends meetings of clubs or organizations: Not on file Relationship status: Not on file Intimate partner violence: Fear of current or ex partner: Not on file Emotionally abused: Not on file Physically abused: Not on file Forced sexual activity: Not on file Other Topics Concern Not on file Social History Narrative Not on file Review of System 10 systems reviewed, pertinent positives listed above Blood pressure 134/64, pulse 100, resp. rate 16, height 1.588 m (5' 2.5"), weight 72.1 kg (159 lb),SpO2 99 %. Body mass index is 28.62 kg/m . Physical Exam General appearance - alert, well developed, well nourished,73 y.o.female appropriate affect HEENT PERRLA, EOMI, no xanthelasma or icterus Neck - supple, No JVD or bruits. Upstrokes equal bilaterally. No adenopathy or thyromegaly. Lungs - clear to auscultation, no wheezes, rales or rhonchi Heart - rapid, regular, normal S1 and S2 without S3. 1/6 midsystolic murmur apex Abdomen - soft, nontender, no organomegaly Extremities -no edema, clubbing or cyanosis, pulses 2+ bilaterally Neurologic: cranial nerves II through XII intact Musculoskeletal - no joint deformity, tendon xanthoma Skin - normal coloration and turgor, no laxity Psych- appropriate mood Lab Results: No results found for: SODIUM, POTASSIUM, MAGNESIUM, CALCIUM, CHLORIDE, TP, BUN, CREATSERUM, ALBUMIN, BILITOTAL, AST, ALKPHOS, CO2, AGRATIO, ALT, GFR, GFRAA, GFRCOMMENT, GLUCOSE, TROP No results found for: CHOLESTEROL, TRIG, HDL, LDLCALC, BLDL, TCHHDLMANENT No results found for: PT, INR, PTT, WBC, RBC, HGB, HCT, MCV, MEANCELHGB, MEANCELHGCON, RBCDISTRIBU,PLATELET, MPV, NEUTROPHILS, LYMPHOCYTES, MONOCYTE, EOSINOPHILS, BASOPHILS, RBCCOMMENTS, DIFFTYPE, PLTCMT, HGBA1C, ESTAVGGLUCOS, TSH Problem List Items Addressed This Visit Cardiovascular Persistent atrial fibrillation - Primary Status post aortic valve replacement with tissue valve Moderate mitral regurgitation Other shelter current use of antiarrhythmic medical therapy Assessment & Plan Discussed options of changing antiarrhythmics and proceeding with cardioversion although she has had 2 failed cardioversions has left atrial enlargement and moderate mitral regurgitation. Low probability that she would maintain sinus rhythm. I suggested that she be evaluated for possible ablation and in the interim increase her sotalol to 120 mg twice a day primarily for rate control.Possibly shemay revert back to sinus rhythm. Dr. Washington at [facility] contacted. 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 medical therapy Moderate mitral regurgitation Mitral valve disorders Status post aortic valve replacement with tissue valve Heart valve replaced by other means Medications Administered Section Inactive Administered Medications - up to 3 most recent administrations Medication Order MAR Action Action Date Dose Rate Site benzocaine 20% 4 [place] (TOPEX) 4 [place], TOPICAL, ONCE, 1 dose, On Wed01/02/22 at 1030, Administered prior to procedure per LIP - Pharmaceutical Waste: Aerosol -, Intraprocedure Given 01/02/2022 10:28 AM EDT 4 Sprays lactated ringers iv infusion 30 mL/hr, INTRAVENOUS, CONTINUOUS, Starting on Wed01/02/22 at 0900, Until Wed01/02/22 at 1042, Preprocedure New Bag/Syringe/Bottle 01/02/2022 10:29 AM EDT 30 mL/hr 30 mL/hr Inactive Administered Medications - up to 3 most recent administrations Medication Order MAR Action Action Date Dose Rate Site benzocaine 20% (TOPEX) X (OR/PROCEDURE) PRN, Starting on Wed03/03/22 at 1149, Until Wed04/06/22 at 1448, Intraprocedure Given 03/03/2022 11:49 AM EDT 2 Sprays fentaNYL 50 mcg/mL injection (SUBLIMAZE) X (OR/PROCEDURE) PRN, Starting on Wed03/03/22 at 1151, Until Wed04/06/22 at 1448, Intraprocedure Given 03/03/2022 12:11 PM EDT 25 mcg Given 03/03/2022 11:59 AM EDT 25 mcg Given 03/03/2022 11:55 AM EDT 25 mcg lidocaine viscous 2 % (XYLOCAINE) X (OR/PROCEDURE) PRN, Starting on Wed03/03/22 at 1149, Until Wed04/06/22 at 1448, Intraprocedure Given 03/03/2022 11:49 AM EDT 15 mL midazolam (PF) injection (VERSED) X (OR/PROCEDURE) PRN, Starting on Wed03/03/22 at 1152, Until Wed04/06/22 at 1448, Intraprocedure Given 03/03/2022 12:11 PM EDT 1 mg Given 03/03/2022 11:59 AM EDT 1 mg Given 03/03/2022 11:55 AM EDT 1 mg Inactive Administered Medications - up to 3 most recent administrations Medication Order MAR Action Action Date Dose Rate Site iron sucrose 200 mg in NaCl 0.9% 100ml (VENOFER) 200 mg, INTRAVENOUS, at 400 mL/hr, Administer over 15 Minutes, ONCE, 1 dose, On Wed04/17/22 at 1530, Please conduct a 30 minute post dose observation. New Bag/Syringe/Bottle 04/17/2022 3:45 PM EDT 200 mg 400 mL/hr Inactive Administered Medications - up to 3 most recent administrations Medication Order MAR Action Action Date Dose Rate Site iron sucrose 200 mg in NaCl 0.9% 100ml (VENOFER) 200 mg, INTRAVENOUS, at 400 mL/hr, Administer over 15 Minutes, ONCE, 1 dose, On Wed04/20/22 at 1000, Please conduct a 30 minute post dose observation. New Bag/Syringe/Bottle 04/20/2022 9:42 AM EDT 200 mg 400 mL/hr Inactive Administered Medications - up to 3 most recent administrations Medication Order MAR Action Action Date Dose Rate Site iron sucrose 200 mg in NaCl 0.9% 100ml (VENOFER) 200 mg, INTRAVENOUS, at 400 mL/hr, Administer over 15 Minutes, ONCE, 1 dose, On Wed04/22/22 at 1100, Please conduct a 30 minute post dose observation. New Bag/Syringe/Bottle 04/22/2022 11:00 AM EDT 200 mg 400 mL/hr Inactive Administered Medications - up to 3 most recent administrations Medication Order MAR Action Action Date Dose Rate Site iron sucrose 200 mg in NaCl 0.9% 100ml (VENOFER) 200 mg, INTRAVENOUS, at 400 mL/hr, Administer over 15 Minutes, ONCE, 1 dose, On Wed04/28/22 at 0930, Please conduct a 30 minute post dose observation. New Bag/Syringe/Bottle 04/28/2022 9:15 AM EDT 200 mg 400 mL/hr Chief Complaint and Reason for Visit Chief Complaint 2 units PRBC's Health Concerns Infection Onset Date Last Indicated Resolved Time COVID-19 Rule-Out 02/21/2022 02/21/2022 02/22/2022 3:58 AM EDT Reason for Referral Specialty Diagnoses / Procedures Referred By Contac t Referred To Contact CT IMAGING Diagnoses Lung nodule, solitary Procedures CT CHEST WO IVCON DIAGNOSTIC COMPUTED TOMOGRAPHY THORAX W/O CNTRST Doreen Le PA-C [address] [place] [address] Ct Imaging Referral ID Status Reason Start Date Expiration Date Visits Requested Visits Authorized [id number] Pending Review Auto-Generat ed Referral 07/07/2022 05/06/2023 1 1 Specialty Diagnoses / Procedures Referred By Contac t Referred To Contact Hematology Diagnoses Iron deficiency anemia due to chronic blood loss Procedures CONSULT TO HEMATOLOGY OFFICE/OUTPATIENT [facility] MDM 60-74 MINUTES Doreen Le PA-C [address] [place] [address] Referral ID Status Reason Start Date Expiration Date Visits Requested Visits Authorized [id number] Pending Review PCP Requested Referral 04/06/2022 04/06/2023 1 1 Specialty Diagnoses / Procedures Referred By Contac t Referred To Contact MR IMAGING Diagnoses 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 Procedures MRA BRAIN WO/W IVCON MRA; HEAD W & WO CONTRAST Doreen Le PA-C [address] [place] [address] Mr Imaging Referral ID Status Reason Start Date Expiration Date Visits Requested Visits Authorized [id number] Pending Review Auto-Generat ed Referral 07/07/2022 08/06/2023 1 1 Specialty Diagnoses / Procedures Referred By Contac t Referred To Contact Vascular Surgery Diagnoses PVD (peripheral vascular disease) with claudication (HCC) Procedures CONSULT TO VASCULAR SURGERY OFFICE/OUTPATIENT [facility] MDM 60-74 MINUTES Doreen Le PA-C [address] [place] [address] Referral ID Status Reason Start Date Expiration Date Visits Requested Visits Authorized [id number] Pending Review PCP Requested Referral 01/28/2023 01/28/2024 1 1 Specialty Diagnoses / Procedures Referred By Contac t Referred To Contact CT IMAGING Diagnoses Lung nodule, solitary Procedures CT CHEST WO IVCON DIAGNOSTIC COMPUTED TOMOGRAPHY THORAX W/O CNTRST Doreen Le PA-C [address] [place] [address] [place] [address] Referral ID Status Reason Start Date Expiration Date V isits Requested Visits Authorized [id number] Closed Auto-Generate d Referral 07/07/2022 05/06/2023 1 1 Specialty Diagnoses / Procedures Referred By Contac t Referred To Contact Hematology Diagnoses 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 Procedures CONSULT TO HEMATOLOGY OFFICE/OUTPATIENT [facility] 60 MINUTES Doreen Le PA-C [address] [place] [address] Referral ID Status Reason Start Date Expiration Date Visits Requested Visits Authorized [id number] Authorized PCP Requested Referral 11/15/2023 11/14/2024 1 1 Additional Source Comments INFORMATION SOURCE (unrecogn ized section and content) DATE CREATED AUTHOR 12/22/2017 [facility] DATE CREATED AUTHOR AUTHOR'S ORGANIZ ATION 03/09/2019 [facility] DATE CREATED AUTHOR AUTHOR'S ORGANIZ ATION 02/21/2021 [facility] DATE CREATED AUTHOR AUTHOR'S ORGANIZ ATION 11/09/2023 [facility] DATE CREATED AUTHOR AUTHOR'S ORGANIZ ATION 02/09/2024 [facility] DATE CREATED AUTHOR AUTHOR'S ORGANIZ ATION 03/01/2024 [facility] DATE CREATED AUTHOR AUTHOR'S ORGANIZ ATION 12/27/2024 [facility] DATE CREATED AUTHOR AUTHOR'S ORGANIZ ATION 01/02/2025 [facility] Reason for Visit (unrecogniz ed section and content) Reason Comments Non-Chemotherapy Treatment Specialty Diagnoses / Procedures Referred By Contac t Referred To Contact Diagnoses 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 Procedures IRON SUCROSE INJECTION PER 1 MG Ralph Mujica DO [address] [place] [address] [facility] [address] [place] [address] Referral ID Status Reason Start Date Expiration Date V isits Requested Visits Authorized [id number] Authorized 04/07/2022 07/04/2022 99 99 Reason Comments Follow Up Specialty Diagnoses / Procedures Referred By Leilani ng Referred To Contact [facility] Diagnoses Follow-up examination 6 month follow up Procedures OFFICE/OUTPATIENT ESTABLISHED MOD MDM 30-39 MIN EST PATIENT Carla Burdick MD [address] [place] [address] Carla Burdick MD [address] [place] [address] Referral ID Status Reason Start Date Expiration Date Visits Re quested Visits Authorized [id number] Closed 03/30/2022 07/04/2022 1 1 Reason Comments Follow-up Palpitations Heart racing. States her pulse has been extremely high. Reason Comments Medication Refill Reason Comments Appointment Rescheduled Due to change in physician's schedule Reason Onset Date Comments Refill Request 10/22/2021 Reason Comments Appointment Cancelled Reason Comments Patient Question MEDICATION QUESTION - XARELTO Reason Comments F/U 3 Month Reason Comments Patient Question MEDICATION DECREASE Reason Comments Fatigue Reason Comments Orders Reason Comments Consult blood in stool, anem ia Specialty Diagnoses / Procedures Referred By Leilani ng Referred To Contact General Surgery / GENERAL SURGERY Diagnoses Acute posthemorrhagic anemia Acute blood loss anemia [D62] Heme + stool [R19.5] Sludge in gallbladder [K82.8] Epigastric pain [R10.13] Procedures OFFICE/OUTPATIENT NEW MODERATE MDM 45-59 MINUTES NEW DDI PATIENT Doreen Le PA-C [address] [place] [address] Chai Encinas MD [address] [place] [address] Referral ID Status Reason Start Date Expiration Date V isits Requested Visits Authorized [id number] 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 01/01/2022 07/04/2022 1 1 Reason Comments 01-02-2022 egd martinez Reason Comments Patient Education EPS-Watchman Reason Comments Rectal Problem Reason Comments Rash blisterlike rash wit h pain & swelling-RIGHT side of face x 2 days Specialty Diagnoses / Procedures Referred By Contac t Referred To Contact Family Practice / FAMILY MEDICINE Diagnoses swelling, tenderness on right side of face near hairline Procedures 4C EST Self, Doreen Jackson, PA-C [address] [place] [address] Referral ID Status Reason Start Date Expiration Date Visits Re quested Visits Authorized [id number] Closed 01/16/2022 07/04/2022 1 1 Reason Onset Date Comments Refill Request 01/19/2022 Reason Comments Patient Question ORDER FOR ABDIEL AND EC G Reason Comments Diarrhea " A few weeks" Specialty Diagnoses / Procedures Referred By Contac t Referred To Contact Family Practice / FAMILY MEDICINE Diagnoses Chronic diarrhea Procedures MYC OFFICE VISIT Self, Doreen Jackson, PA-C [address] [place] [address] Referral ID Status Reason Start Date Expiration Date Visits Re quested Visits Authorized [id number] Closed 02/20/2022 07/04/2022 1 1 Reason Comments Procedure Follow Up EGD completed on 01/02 Reason Onset Date Comments Transition Of Care 02/25/2022 [facility] D/C 02/24/2023 Reason Comments Reminder Call Transesophageal Echo 03/03/22 Specialty Diagnoses / Procedures Referred By Contact Referred To Contact Cardiology / CARDIOVASCULAR MEDICINE Diagnoses Paroxysmal atrial fibrillation Presence of Watchman left atrial appendage closure device Per [facility] Procedures REFERRAL TO [facility]ANCIAL COUNSELOR EST CLINICIAN Chandler Swan MD [address] [place] [address] Radha Torres APRN.SIGN BOARD ERECTOR [address] [place] [id number] Referral ID Status Reason Start Date Expiration Date Visits Requested Visits Authorized [id number] 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 OON Notification Letter 03/03/2022 07/04/2022 1 1 Reason Onset Date Comments Transition Of Care 03/05/2022 [facility] follow up Reason Comments Edema Bilateral legs and f eet x 4-5 days Palpitations Shortness of Breath slight Specialty Diagnoses / Procedures Referred By Leilani ng Referred To Contact Family Practice / FAMILY MEDICINE Diagnoses Follow up to hospital stay Procedures MYC OFFICE VISIT Self Doreen Le PA-C [address] [place] [address] Referral ID Status Reason Start Date Expiration Date Visits Re quested Visits Authorized [id number] Closed 03/03/2022 07/04/2022 1 1 Reason Onset Date Comments Transition Of Care 03/20/2022 Tcm readmissi on Reason Onset Date Comments Appointment 03/21/2022 Reason Comments Trimming Cutter Machine - Other CHF Reason Comments Hospital Follow Up Appointment Reason Comments Hospital F/U [facility] Shortness of Breath Reason Comments Appointment Iron sucrose Reason Comments New Patient Hospital follow up/D iscuss renal mass Reason Comments Anemia Reason Comments Refill Request Reason Comments Established Patient Reason Onset Date Comments Refill Request Refill Request 05/25/2022 Reason Comments Follow Up 3 month follow up Reason Comments Information Reason Comments Research IRB [id number] TRIM-AF Reason Onset Date Comments Refill Request 08/30/2022 Reason Comments Follow Up Reason Onset Date Comments Refill Request 09/29/2022 Reason Comments Follow Up Reason Comments Appointment Reason Onset Date Comments Refill Request 03/15/[address] Specialty Diagnoses / Procedures Referred By Leilani ng Referred To Contact CT IMAGING Diagnoses Lung nodule, solitary Procedures CT CHEST WO IVCON DIAGNOSTIC COMPUTED TOMOGRAPHY THORAX W/O CNTRST Doreen Le PA-C [address] [place] [address] [place] [address] Referral ID Status Reason Start Date Expiration Date V isits Requested Visits Authorized [id number] Closed Auto-Generate d Referral 07/07/2022 05/06/2023 1 1 Reason Comments Radiology US Specialty Diagnoses / Procedures Referred By Contac t Referred To Contact US IMAGING Diagnoses Neoplasm of uncertain behavior of right kidney Procedures US KIDNEY/BLADDER US RETROPERITONEAL REAL TIME W/IMAGE COMPLETE Brayan Chicas MD [address] [place] [address] [place] [address] Referral ID Status Reason Start Date Expiration Date V isits Requested Visits Authorized [id number] Closed Auto-Generate d Referral 09/02/2022 05/09/2023 1 1 Reason Comments Cough Chest congestion x l ast night Reason Comments Patient Update Reason Comments Leg Edema Reason Comments Results Orders Reason Comments Follow Up 6 month Reason Comments Established Patient Reason Comments Initial Consult HEART FAILURE 17468 Reason Comments Transition Of Care Reason Onset Date Comments ACM CECY RN 11/16/2023 E.D. Utilizat ion Review per Payer Request. Reason Comments Patient Question Reason Comments Hospital Follow Up [facility] follow up dc'd 11/12/23 dx: CHF Reason Comments Results Reason Comments Breathing Problem Leg Edema Reason Onset Date Comments ACM CECY RN 11/26/2023 ED Utilizatio n Review per request of payer Reason Comments Acute Visit Cough, chest congest ion, swollen glands x 2-3 weeks Reason Comments Appointment Reason Comments Recheck Reason Comments Hospital F/U Reason Comments Breathing Problem Leg Edema Reason Comments Follow Up hospital follow up- CHF in [facility] for 23 days, discharged October 28 Reason Comments Follow Up labs Reason Comments Returning Patient's Call Reason Comments Follow Up patient has concerns Source Comments (unrecognize d section and content) In the event this informatio n is protected by the Federal Confidentiality of Alcohol and Drug Abuse Patient Records regulations: The Federal rules restrict any use of the information to criminally investigate or prosecute any alcohol or drug abuse patient.[facility] the event this information is protected by the Federal Confidentiality of Alcohol and Drug Abuse Patient Records regulations: The Federal rules restrict any use of the information to criminally investigate or prosecute any alcohol or drug abuse patient.[facility] the event this information is protected by the Federal Confidentiality of Alcohol and Drug Abuse Patient Records regulations: The Federal rules restrict any use of the information to criminally investigate or prosecute any alcohol or drug abuse patient.[facility] the event this information is protected by the Federal Confidentiality of Alcohol and Drug Abuse Patient Records regulations: The Federal rules restrict any use of the information to criminally investigate or prosecute any alcohol or drug abuse patient.[facility] the event this information is protected by the Federal Confidentiality of Alcohol and Drug Abuse Patient Records regulations: The Federal rules restrict any use of the information to criminally investigate or prosecute any alcohol or drug abuse patient.[facility] the event this information is protected by the Federal Confidentiality of Alcohol and Drug Abuse Patient Records regulations: The Federal rules restrict any use of the information to criminally investigate or prosecute any alcohol or drug abuse patient.[facility] the event this information is protected by the Federal Confidentiality of Alcohol and Drug Abuse Patient Records regulations: The Federal rules restrict any use of the information to criminally investigate or prosecute any alcohol or drug abuse patient.[facility] the event this information is protected by the Federal Confidentiality of Alcohol and Drug Abuse Patient Records regulations: The Federal rules restrict any use of the information to criminally investigate or prosecute any alcohol or drug abuse patient.[facility] the event this information is protected by the Federal Confidentiality of Alcohol and Drug Abuse Patient Records regulations: The Federal rules restrict any use of the information to criminally investigate or prosecute any alcohol or drug abuse patient.[facility] the event this information is protected by the Federal Confidentiality of Alcohol and Drug Abuse Patient Records regulations: The Federal rules restrict any use of the information to criminally investigate or prosecute any alcohol or drug abuse patient.[facility] the event this information is protected by the Federal Confidentiality of Alcohol and Drug Abuse Patient Records regulations: The Federal rules restrict any use of the information to criminally investigate or prosecute any alcohol or drug abuse patient.[facility] Center[facility] the event this information is protected by the Federal Confidentiality of Alcohol and Drug Abuse Patient Records regulations: The Federal rules restrict any use of the information to criminally investigate or prosecute any alcohol or drug abuse patient.[facility] CenterIn the event this information is protected by the Federal Confidentiality of Alcohol and Drug Abuse Patient Records regulations: The Federal rules restrict any use of the information to criminally investigate or prosecute any alcohol or drug abuse patient.[facility] Center[facility] the event this information is protected by the Federal Confidentiality of Alcohol and Drug Abuse Patient Records regulations: The Federal rules restrict any use of the information to criminally investigate or prosecute any alcohol or drug abuse patient.[facility] Center[facility] the event this information is protected by the Federal Confidentiality of Alcohol and Drug Abuse Patient Records regulations: The Federal rules restrict any use of the information to criminally investigate or prosecute any alcohol or drug abuse patient.[facility] Center[facility] the event this information is protected by the Federal Confidentiality of Alcohol and Drug Abuse Patient Records regulations: The Federal rules restrict any use of the information to criminally investigate or prosecute any alcohol or drug abuse patient.[facility] CenterIn the event this information is protected by the Federal Confidentiality of Alcohol and Drug Abuse Patient Records regulations: The Federal rules restrict any use of the information to criminally investigate or prosecute any alcohol or drug abuse patient.[facility] CenterIn the event this information is protected by the Federal Confidentiality of Alcohol and Drug Abuse Patient Records regulations: The Federal rules restrict any use of the information to criminally investigate or prosecute any alcohol or drug abuse patient.[facility] CenterIn the event this information is protected by the Federal Confidentiality of Alcohol and Drug Abuse Patient Records regulations: The Federal rules restrict any use of the information to criminally investigate or prosecute any alcohol or drug abuse patient.[facility] CenterIn the event this information is protected by the Federal Confidentiality of Alcohol and Drug Abuse Patient Records regulations: The Federal rules restrict any use of the information to criminally investigate or prosecute any alcohol or drug abuse patient.[facility] CenterIn the event this information is protected by the Federal Confidentiality of Alcohol and Drug Abuse Patient Records regulations: The Federal rules restrict any use of the information to criminally investigate or prosecute any alcohol or drug abuse patient.[facility] CenterIn the event this information is protected by the Federal Confidentiality of Alcohol and Drug Abuse Patient Records regulations: The Federal rules restrict any use of the information to criminally investigate or prosecute any alcohol or drug abuse patient.[facility] CenterIn the event this information is protected by the Federal Confidentiality of Alcohol and Drug Abuse Patient Records regulations: The Federal rules restrict any use of the information to criminally investigate or prosecute any alcohol or drug abuse patient.[facility] CenterIn the event this information is protected by the Federal Confidentiality of Alcohol and Drug Abuse Patient Records regulations: The Federal rules restrict any use of the information to criminally investigate or prosecute any alcohol or drug abuse patient.[facility] CenterIn the event this information is protected by the Federal Confidentiality of Alcohol and Drug Abuse Patient Records regulations: The Federal rules restrict any use of the information to criminally investigate or prosecute any alcohol or drug abuse patient.[facility] CenterIn the event this information is protected by the Federal Confidentiality of Alcohol and Drug Abuse Patient Records regulations: The Federal rules restrict any use of the information to criminally investigate or prosecute any alcohol or drug abuse patient.[facility] CenterIn the event this information is protected by the Federal Confidentiality of Alcohol and Drug Abuse Patient Records regulations: The Federal rules restrict any use of the information to criminally investigate or prosecute any alcohol or drug abuse patient.[facility] CenterIn the event this information is protected by the Federal Confidentiality of Alcohol and Drug Abuse Patient Records regulations: The Federal rules restrict any use of the information to criminally investigate or prosecute any alcohol or drug abuse patient.[facility] CenterIn the event this information is protected by the Federal Confidentiality of Alcohol and Drug Abuse Patient Records regulations: The Federal rules restrict any use of the information to criminally investigate or prosecute any alcohol or drug abuse patient.[facility] CenterIn the event this information is protected by the Federal Confidentiality of Alcohol and Drug Abuse Patient Records regulations: The Federal rules restrict any use of the information to criminally investigate or prosecute any alcohol or drug abuse patient.[facility] CenterIn the event this information is protected by the Federal Confidentiality of Alcohol and Drug Abuse Patient Records regulations: The Federal rules restrict any use of the information to criminally investigate or prosecute any alcohol or drug abuse patient.[facility] CenterIn the event this information is protected by the Federal Confidentiality of Alcohol and Drug Abuse Patient Records regulations: The Federal rules restrict any use of the information to criminally investigate or prosecute any alcohol or drug abuse patient.[facility] CenterIn the event this information is protected by the Federal Confidentiality of Alcohol and Drug Abuse Patient Records regulations: The Federal rules restrict any use of the information to criminally investigate or prosecute any alcohol or drug abuse patient.[facility] CenterIn the event this information is protected by the Federal Confidentiality of Alcohol and Drug Abuse Patient Records regulations: The Federal rules restrict any use of the information to criminally investigate or prosecute any alcohol or drug abuse patient.[facility] CenterIn the event this information is protected by the Federal Confidentiality of Alcohol and Drug Abuse Patient Records regulations: The Federal rules restrict any use of the information to criminally investigate or prosecute any alcohol or drug abuse patient.[facility] CenterIn the event this information is protected by the Federal Confidentiality of Alcohol and Drug Abuse Patient Records regulations: The Federal rules restrict any use of the information to criminally investigate or prosecute any alcohol or drug abuse patient.[facility] CenterIn the event this information is protected by the Federal Confidentiality of Alcohol and Drug Abuse Patient Records regulations: The Federal rules restrict any use of the information to criminally investigate or prosecute any alcohol or drug abuse patient.[facility] CenterIn the event this information is protected by the Federal Confidentiality of Alcohol and Drug Abuse Patient Records regulations: The Federal rules restrict any use of the information to criminally investigate or prosecute any alcohol or drug abuse patient.[facility] CenterIn the event this information is protected by the Federal Confidentiality of Alcohol and Drug Abuse Patient Records regulations: The Federal rules restrict any use of the information to criminally investigate or prosecute any alcohol or drug abuse patient.[facility] CenterIn the event this information is protected by the Federal Confidentiality of Alcohol and Drug Abuse Patient Records regulations: The Federal rules restrict any use of the information to criminally investigate or prosecute any alcohol or drug abuse patient.[facility] CenterIn the event this information is protected by the Federal Confidentiality of Alcohol and Drug Abuse Patient Records regulations: The Federal rules restrict any use of the information to criminally investigate or prosecute any alcohol or drug abuse patient.[facility] CenterIn the event this information is protected by the Federal Confidentiality of Alcohol and Drug Abuse Patient Records regulations: The Federal rules restrict any use of the information to criminally investigate or prosecute any alcohol or drug abuse patient.[facility] CenterIn the event this information is protected by the Federal Confidentiality of Alcohol and Drug Abuse Patient Records regulations: The Federal rules restrict any use of the information to criminally investigate or prosecute any alcohol or drug abuse patient.[facility] CenterIn the event this information is protected by the Federal Confidentiality of Alcohol and Drug Abuse Patient Records regulations: The Federal rules restrict any use of the information to criminally investigate or prosecute any alcohol or drug abuse patient.[facility] CenterIn the event this information is protected by the Federal Confidentiality of Alcohol and Drug Abuse Patient Records regulations: The Federal rules restrict any use of the information to criminally investigate or prosecute any alcohol or drug abuse patient.[facility] CenterIn the event this information is protected by the Federal Confidentiality of Alcohol and Drug Abuse Patient Records regulations: The Federal rules restrict any use of the information to criminally investigate or prosecute any alcohol or drug abuse patient.[facility] CenterIn the event this information is protected by the Federal Confidentiality of Alcohol and Drug Abuse Patient Records regulations: The Federal rules restrict any use of the information to criminally investigate or prosecute any alcohol or drug abuse patient.[facility] CenterIn the event this information is protected by the Federal Confidentiality of Alcohol and Drug Abuse Patient Records regulations: The Federal rules restrict any use of the information to criminally investigate or prosecute any alcohol or drug abuse patient.[facility] CenterIn the event this information is protected by the Federal Confidentiality of Alcohol and Drug Abuse Patient Records regulations: The Federal rules restrict any use of the information to criminally investigate or prosecute any alcohol or drug abuse patient.[facility] CenterIn the event this information is protected by the Federal Confidentiality of Alcohol and Drug Abuse Patient Records regulations: The Federal rules restrict any use of the information to criminally investigate or prosecute any alcohol or drug abuse patient.[facility] CenterIn the event this information is protected by the Federal Confidentiality of Alcohol and Drug Abuse Patient Records regulations: The Federal rules restrict any use of the information to criminally investigate or prosecute any alcohol or drug abuse patient.[facility] CenterIn the event this information is protected by the Federal Confidentiality of Alcohol and Drug Abuse Patient Records regulations: The Federal rules restrict any use of the information to criminally investigate or prosecute any alcohol or drug abuse patient.[facility] CenterIn the event this information is protected by the Federal Confidentiality of Alcohol and Drug Abuse Patient Records regulations: The Federal rules restrict any use of the information to criminally investigate or prosecute any alcohol or drug abuse patient.[facility] CenterIn the event this information is protected by the Federal Confidentiality of Alcohol and Drug Abuse Patient Records regulations: The Federal rules restrict any use of the information to criminally investigate or prosecute any alcohol or drug abuse patient.[facility] CenterIn the event this information is protected by the Federal Confidentiality of Alcohol and Drug Abuse Patient Records regulations: The Federal rules restrict any use of the information to criminally investigate or prosecute any alcohol or drug abuse patient.[facility] CenterIn the event this information is protected by the Federal Confidentiality of Alcohol and Drug Abuse Patient Records regulations: The Federal rules restrict any use of the information to criminally investigate or prosecute any alcohol or drug abuse patient.[facility] CenterIn the event this information is protected by the Federal Confidentiality of Alcohol and Drug Abuse Patient Records regulations: The Federal rules restrict any use of the information to criminally investigate or prosecute any alcohol or drug abuse patient.[facility] CenterIn the event this information is protected by the Federal Confidentiality of Alcohol and Drug Abuse Patient Records regulations: The Federal rules restrict any use of the information to criminally investigate or prosecute any alcohol or drug abuse patient.[facility] CenterIn the event this information is protected by the Federal Confidentiality of Alcohol and Drug Abuse Patient Records regulations: The Federal rules restrict any use of the information to criminally investigate or prosecute any alcohol or drug abuse patient.[facility] CenterIn the event this information is protected by the Federal Confidentiality of Alcohol and Drug Abuse Patient Records regulations: The Federal rules restrict any use of the information to criminally investigate or prosecute any alcohol or drug abuse patient.[facility] CenterIn the event this information is protected by the Federal Confidentiality of Alcohol and Drug Abuse Patient Records regulations: The Federal rules restrict any use of the information to criminally investigate or prosecute any alcohol or drug abuse patient.[facility] CenterIn the event this information is protected by the Federal Confidentiality of Alcohol and Drug Abuse Patient Records regulations: The Federal rules restrict any use of the information to criminally investigate or prosecute any alcohol or drug abuse patient.[facility] CenterIn the event this information is protected by the Federal Confidentiality of Alcohol and Drug Abuse Patient Records regulations: The Federal rules restrict any use of the information to criminally investigate or prosecute any alcohol or drug abuse patient.[facility] CenterIn the event this information is protected by the Federal Confidentiality of Alcohol and Drug Abuse Patient Records regulations: The Federal rules restrict any use of the information to criminally investigate or prosecute any alcohol or drug abuse patient.[facility] CenterIn the event this information is protected by the Federal Confidentiality of Alcohol and Drug Abuse Patient Records regulations: The Federal rules restrict any use of the information to criminally investigate or prosecute any alcohol or drug abuse patient.[facility] CenterIn the event this information is protected by the Federal Confidentiality of Alcohol and Drug Abuse Patient Records regulations: The Federal rules restrict any use of the information to criminally investigate or prosecute any alcohol or drug abuse patient.[facility] CenterIn the event this information is protected by the Federal Confidentiality of Alcohol and Drug Abuse Patient Records regulations: The Federal rules restrict any use of the information to criminally investigate or prosecute any alcohol or drug abuse patient.[facility] CenterIn the event this information is protected by the Federal Confidentiality of Alcohol and Drug Abuse Patient Records regulations: The Federal rules restrict any use of the information to criminally investigate or prosecute any alcohol or drug abuse patient.[facility] CenterIn the event this information is protected by the Federal Confidentiality of Alcohol and Drug Abuse Patient Records regulations: The Federal rules restrict any use of the information to criminally investigate or prosecute any alcohol or drug abuse patient.[facility] CenterIn the event this information is protected by the Federal Confidentiality of Alcohol and Drug Abuse Patient Records regulations: The Federal rules restrict any use of the information to criminally investigate or prosecute any alcohol or drug abuse patient.[facility] CenterIn the event this information is protected by the Federal Confidentiality of Alcohol and Drug Abuse Patient Records regulations: The Federal rules restrict any use of the information to criminally investigate or prosecute any alcohol or drug abuse patient.[facility] CenterIn the event this information is protected by the Federal Confidentiality of Alcohol and Drug Abuse Patient Records regulations: The Federal rules restrict any use of the information to criminally investigate or prosecute any alcohol or drug abuse patient.[facility] CenterIn the event this information is protected by the Federal Confidentiality of Alcohol and Drug Abuse Patient Records regulations: The Federal rules restrict any use of the information to criminally investigate or prosecute any alcohol or drug abuse patient.[facility] CenterIn the event this information is protected by the Federal Confidentiality of Alcohol and Drug Abuse Patient Records regulations: The Federal rules restrict any use of the information to criminally investigate or prosecute any alcohol or drug abuse patient.[facility] CenterIn the event this information is protected by the Federal Confidentiality of Alcohol and Drug Abuse Patient Records regulations: The Federal rules restrict any use of the information to criminally investigate or prosecute any alcohol or drug abuse patient.[facility] CenterIn the event this information is protected by the Federal Confidentiality of Alcohol and Drug Abuse Patient Records regulations: The Federal rules restrict any use of the information to criminally investigate or prosecute any alcohol or drug abuse patient.[facility] CenterIn the event this information is protected by the Federal Confidentiality of Alcohol and Drug Abuse Patient Records regulations: The Federal rules restrict any use of the information to criminally investigate or prosecute any alcohol or drug abuse patient.[facility] CenterIn the event this information is protected by the Federal Confidentiality of Alcohol and Drug Abuse Patient Records regulations: The Federal rules restrict any use of the information to criminally investigate or prosecute any alcohol or drug abuse patient.[facility] CenterIn the event this information is protected by the Federal Confidentiality of Alcohol and Drug Abuse Patient Records regulations: The Federal rules restrict any use of the information to criminally investigate or prosecute any alcohol or drug abuse patient.[facility] CenterIn the event this information is protected by the Federal Confidentiality of Alcohol and Drug Abuse Patient Records regulations: The Federal rules restrict any use of the information to criminally investigate or prosecute any alcohol or drug abuse patient.[facility] CenterIn the event this information is protected by the Federal Confidentiality of Alcohol and Drug Abuse Patient Records regulations: The Federal rules restrict any use of the information to criminally investigate or prosecute any alcohol or drug abuse patient.[facility] CenterIn the event this information is protected by the Federal Confidentiality of Alcohol and Drug Abuse Patient Records regulations: The Federal rules restrict any use of the information to criminally investigate or prosecute any alcohol or drug abuse patient.[facility] CenterIn the event this information is protected by the Federal Confidentiality of Alcohol and Drug Abuse Patient Records regulations: The Federal rules restrict any use of the information to criminally investigate or prosecute any alcohol or drug abuse patient.[facility] CenterIn the event this information is protected by the Federal Confidentiality of Alcohol and Drug Abuse Patient Records regulations: The Federal rules restrict any use of the information to criminally investigate or prosecute any alcohol or drug abuse patient.[facility] CenterIn the event this information is protected by the Federal Confidentiality of Alcohol and Drug Abuse Patient Records regulations: The Federal rules restrict any use of the information to criminally investigate or prosecute any alcohol or drug abuse patient.[facility] CenterIn the event this information is protected by the Federal Confidentiality of Alcohol and Drug Abuse Patient Records regulations: The Federal rules restrict any use of the information to criminally investigate or prosecute any alcohol or drug abuse patient.[facility] CenterIn the event this information is protected by the Federal Confidentiality of Alcohol and Drug Abuse Patient Records regulations: The Federal rules restrict any use of the information to criminally investigate or prosecute any alcohol or drug abuse patient.[facility] CenterIn the event this information is protected by the Federal Confidentiality of Alcohol and Drug Abuse Patient Records regulations: The Federal rules restrict any use of the information to criminally investigate or prosecute any alcohol or drug abuse patient.[facility] CenterIn the event this information is protected by the Federal Confidentiality of Alcohol and Drug Abuse Patient Records regulations: The Federal rules restrict any use of the information to criminally investigate or prosecute any alcohol or drug abuse patient.[facility] CenterIn the event this information is protected by the Federal Confidentiality of Alcohol and Drug Abuse Patient Records regulations: The Federal rules restrict any use of the information to criminally investigate or prosecute any alcohol or drug abuse patient.[facility] CenterIn the event this information is protected by the Federal Confidentiality of Alcohol and Drug Abuse Patient Records regulations: The Federal rules restrict any use of the information to criminally investigate or prosecute any alcohol or drug abuse patient.[facility]In the event this information is protected by the Federal Confidentiality of Alcohol and Drug Abuse Patient Records regulations: The Federal rules restrict any use of the information to criminally investigate or prosecute any alcohol or drug abuse patient.[facility] CenterIn the event this information is protected by the Federal Confidentiality of Alcohol and Drug Abuse Patient Records regulations: The Federal rules restrict any use of the information to criminally investigate or prosecute any alcohol or drug abuse patient.[facility] CenterIn the event this information is protected by the Federal Confidentiality of Alcohol and Drug Abuse Patient Records regulations: The Federal rules restrict any use of the information to criminally investigate or prosecute any alcohol or drug abuse patient.[facility] CenterIn the event this information is protected by the Federal Confidentiality of Alcohol and Drug Abuse Patient Records regulations: The Federal rules restrict any use of the information to criminally investigate or prosecute any alcohol or drug abuse patient.[facility] CenterIn the event this information is protected by the Federal Confidentiality of Alcohol and Drug Abuse Patient Records regulations: The Federal rules restrict any use of the information to criminally investigate or prosecute any alcohol or drug abuse patient.[facility] CenterIn the event this information is protected by the Federal Confidentiality of Alcohol and Drug Abuse Patient Records regulations: The Federal rules restrict any use of the information to criminally investigate or prosecute any alcohol or drug abuse patient.[facility] CenterIn the event this information is protected by the Federal Confidentiality of Alcohol and Drug Abuse Patient Records regulations: The Federal rules restrict any use of the information to criminally investigate or prosecute any alcohol or drug abuse patient.[facility] CenterIn the event this information is protected by the Federal Confidentiality of Alcohol and Drug Abuse Patient Records regulations: The Federal rules restrict any use of the information to criminally investigate or prosecute any alcohol or drug abuse patient.[facility] CenterIn the event this information is protected by the Federal Confidentiality of Alcohol and Drug Abuse Patient Records regulations: The Federal rules restrict any use of the information to criminally investigate or prosecute any alcohol or drug abuse patient.[facility] CenterIn the event this information is protected by the Federal Confidentiality of Alcohol and Drug Abuse Patient Records regulations: The Federal rules restrict any use of the information to criminally investigate or prosecute any alcohol or drug abuse patient.[facility] CenterIn the event this information is protected by the Federal Confidentiality of Alcohol and Drug Abuse Patient Records regulations: The Federal rules restrict any use of the information to criminally investigate or prosecute any alcohol or drug abuse patient.[facility] CenterIn the event this information is protected by the Federal Confidentiality of Alcohol and Drug Abuse Patient Records regulations: The Federal rules restrict any use of the information to criminally investigate or prosecute any alcohol or drug abuse patient.[facility] CenterIn the event this information is protected by the Federal Confidentiality of Alcohol and Drug Abuse Patient Records regulations: The Federal rules restrict any use of the information to criminally investigate or prosecute any alcohol or drug abuse patient.[facility] CenterIn the event this information is protected by the Federal Confidentiality of Alcohol and Drug Abuse Patient Records regulations: The Federal rules restrict any use of the information to criminally investigate or prosecute any alcohol or drug abuse patient.[facility] CenterIn the event this information is protected by the Federal Confidentiality of Alcohol and Drug Abuse Patient Records regulations: The Federal rules restrict any use of the information to criminally investigate or prosecute any alcohol or drug abuse patient.[facility] CenterIn the event this information is protected by the Federal Confidentiality of Alcohol and Drug Abuse Patient Records regulations: The Federal rules restrict any use of the information to criminally investigate or prosecute any alcohol or drug abuse patient.[facility] CenterIn the event this information is protected by the Federal Confidentiality of Alcohol and Drug Abuse Patient Records regulations: The Federal rules restrict any use of the information to criminally investigate or prosecute any alcohol or drug abuse patient.[facility] CenterIn the event this information is protected by the Federal Confidentiality of Alcohol and Drug Abuse Patient Records regulations: The Federal rules restrict any use of the information to criminally investigate or prosecute any alcohol or drug abuse patient.[facility] CenterIn the event this information is protected by the Federal Confidentiality of Alcohol and Drug Abuse Patient Records regulations: The Federal rules restrict any use of the information to criminally investigate or prosecute any alcohol or drug abuse patient.[facility] CenterIn the event this information is protected by the Federal Confidentiality of Alcohol and Drug Abuse Patient Records regulations: The Federal rules restrict any use of the information to criminally investigate or prosecute any alcohol or drug abuse patient.[facility] CenterIn the event this information is protected by the Federal Confidentiality of Alcohol and Drug Abuse Patient Records regulations: The Federal rules restrict any use of the information to criminally investigate or prosecute any alcohol or drug abuse patient.[facility] CenterIn the event this information is protected by the Federal Confidentiality of Alcohol and Drug Abuse Patient Records regulations: The Federal rules restrict any use of the information to criminally investigate or prosecute any alcohol or drug abuse patient.[facility] CenterIn the event this information is protected by the Federal Confidentiality of Alcohol and Drug Abuse Patient Records regulations: The Federal rules restrict any use of the information to criminally investigate or prosecute any alcohol or drug abuse patient.[facility] CenterIn the event this information is protected by the Federal Confidentiality of Alcohol and Drug Abuse Patient Records regulations: The Federal rules restrict any use of the information to criminally investigate or prosecute any alcohol or drug abuse patient.[facility] CenterIn the event this information is protected by the Federal Confidentiality of Alcohol and Drug Abuse Patient Records regulations: The Federal rules restrict any use of the information to criminally investigate or prosecute any alcohol or drug abuse patient.[facility] CenterIn the event this information is protected by the Federal Confidentiality of Alcohol and Drug Abuse Patient Records regulations: The Federal rules restrict any use of the information to criminally investigate or prosecute any alcohol or drug abuse patient.[facility] CenterIn the event this information is protected by the Federal Confidentiality of Alcohol and Drug Abuse Patient Records regulations: The Federal rules restrict any use of the information to criminally investigate or prosecute any alcohol or drug abuse patient.[facility] CenterIn the event this information is protected by the Federal Confidentiality of Alcohol and Drug Abuse Patient Records regulations: The Federal rules restrict any use of the information to criminally investigate or prosecute any alcohol or drug abuse patient.[facility] CenterIn the event this information is protected by the Federal Confidentiality of Alcohol and Drug Abuse Patient Records regulations: The Federal rules restrict any use of the information to criminally investigate or prosecute any alcohol or drug abuse patient.[facility] CenterIn the event this information is protected by the Federal Confidentiality of Alcohol and Drug Abuse Patient Records regulations: The Federal rules restrict any use of the information to criminally investigate or prosecute any alcohol or drug abuse patient.[facility] CenterIn the event this information is protected by the Federal Confidentiality of Alcohol and Drug Abuse Patient Records regulations: The Federal rules restrict any use of the information to criminally investigate or prosecute any alcohol or drug abuse patient.[facility] CenterIn the event this information is protected by the Federal Confidentiality of Alcohol and Drug Abuse Patient Records regulations: The Federal rules restrict any use of the information to criminally investigate or prosecute any alcohol or drug abuse patient.[facility] Care Teams (unrecognized sec tion and content) Wire Charger Relationship Specialty Start Date End Date Doreen Le PA-C [address] [place] [address] PCP - General Family Practice 11/26/16 No, Referral Referring 01/31/19 [place] [address] [place] [address] Primary Staff Physician Cardiology 07/15/21 Wire Charger Relationship Specialty Start Date End Date Doreen Le PA-C [address] [place] [address] PCP - General Family Practice 11/26/16 No, Referral Referring 01/31/19 [place] [address] [place], [place] 8594111 [phone] Primary Staff Physician Cardiology 07/15/21 Wire Charger Relationship Specialty Start Date End Date Doreen Le PA-C [address] [place] [address] PCP - General Family Practice 11/26/16 No, Referral Referring 01/31/19 [place] [address] [place], [place] 7093166 [phone] Primary Staff Physician Cardiology 07/15/21 Wire Charger Relationship Specialty Start Date End Date Doreen Le PA-C [address] [place] [address] PCP - General Family Practice 11/26/16 No, Referral Referring 01/31/19 [place] [address] [place] [address] Primary Staff Physician Cardiology 07/15/21 Wire Charger Relationship Specialty Start Date End Date Doreen Le PA-C [address] [place] [address] PCP - General Family Practice 11/26/16 No, Referral Referring 01/31/19 [place] [address] [place], [place] 8342508 [phone] Primary Staff Physician Cardiology 07/15/21 Wire Charger Relationship Specialty Start Date End Date Doreen Le PA-C [address] [place] [address] PCP - General Family Practice 11/26/16 No, Referral Referring 01/31/19 [place] [address] [address] [place], [place] [id number] Primary Staff Physician Cardiology 07/15/21 Wire Charger Relationship Specialty Start Date End Date Doreen Le PA-C [address] [place], [place] 345511 PCP - General Family Practice 11/26/16 No, Referral Referring 01/31/19 [place] [address] [address] [place], [place] 0199353 [phone] Primary Staff Physician Cardiology 07/15/21 Wire Charger Relationship Specialty Start Date End Date Doreen eL PA-C [address] [place] [address] PCP - General Family Practice 11/26/16 No, Referral Referring 01/31/19 [place] [address] [address] [place], [place] [phone] Primary Staff Physician Cardiology 07/15/21 Wire Charger Relationship Specialty Start Date End Date Doreen Le PA-C [address] [place] [address] PCP - General Family Practice 11/26/16 No, Referral Referring 01/31/19 [place] [address] [address] [place], [place] 8257435 [phone] Primary Staff Physician Cardiology 07/15/21 Wire Charger Relationship Specialty Start Date End Date Doreen Le PA-C [address] [place] [address] PCP - General Family Practice 11/26/16 No, Referral Referring 01/31/19 [place] [address] [place], [place] 2338453 [phone] Primary Staff Physician Cardiology 07/15/21 Wire Charger Relationship Specialty Start Date End Date Doreen Le PA-C [address] [place] [address] PCP - General Family Practice 11/26/16 No, Referral Referring 01/31/19 [place] [address] [place], [place] [id number] [phone] Primary Staff Physician Cardiology 07/15/21 Wire Charger Relationship Specialty Start Date End Date Doreen Le PA-C [address] [place] [address] PCP - General Family Practice 11/26/16 No, Referral Referring 01/31/19 [place] [address] [place] [address] Primary Staff Physician Cardiology 07/15/21 Wire Charger Relationship Specialty Start Date End Date Doreen Le PA-C [address] [place] [address] PCP - General Family Practice 11/26/16 No, Referral Referring 01/31/19 [place] [address] [facility] [place] [address] Primary Staff Physician Cardiology 07/15/21 Wire Charger Relationship Specialty Start Date End Date Doreen Le PA-C [address] [place] [address] PCP - General Family Practice 11/26/16 No, Referral Referring 01/31/19 [place] [address] [place], [place] [id number] [phone] Primary Staff Physician Cardiology 07/15/21 Wire Charger Relationship Specialty Start Date End Date Doreen Le PA-C [address] [place], [place] 809881 PCP - General Family Practice 11/26/16 No, Referral Referring 01/31/19 [place] [address] [address] [place], [place] [phone] Primary Staff Physician Cardiology 07/15/21 Wire Charger Relationship Specialty Start Date End Date Doreen Le PA-C [address] [place], [place] 167451 PCP - General Family Practice 11/26/16 No, Referral Referring 01/31/19 [place] [address] [facility] [place], [place] [phone] Primary Staff Physician Cardiology 07/15/21 Wire Charger Relationship Specialty Start Date End Date Doreen Le PA-C [address] [place] [address] PCP - General Family Practice 11/26/16 No, Referral Referring 01/31/19 [place] [address] [address] [place], [place] 9570857 [phone] Primary Staff Physician Cardiology 07/15/21 Wire Charger Relationship Specialty Start Date End Date Doreen Le PA-C [address] [place] [address] PCP - General Family Practice 11/26/16 No, Referral Referring 01/31/19 [place] [address] [address] [place], [place] 9038580 [phone] Primary Staff Physician Cardiology 07/15/21 Cervantes, Sheridan E, partner marketing intern Dietary Service Aide 02/25/22 03/27/22 Wire Charger Relationship Specialty Start Date End Date Doreen Le PA-C [address] [place] [address] PCP - General Family Practice 11/26/16 No, Referral Referring 01/31/19 [place] [address] [address] [place], [place] [phone] Primary Staff Physician Cardiology 07/15/21 Sheridan Cervantes, partner marketing intern Dietary Service Aide 02/25/22 03/27/22 Carla Burdick MD [address] [place] [address] Cardiology 03/03/22 03/03/22 Carla Burdick MD [address] [place] [address] Primary Staff Physician Cardiology 03/03/22 Wire Charger Relationship Specialty Start Date End Date Doreen Le PA-C [address] [place] [address] PCP - General Family Practice 11/26/16 No, Referral Referring 01/31/19 [place] [address] [address] [place], [place] [id number] Primary Staff Physician Cardiology 07/15/21 Sheridan Cervantes, partner marketing intern Dietary Service Aide 02/25/22 03/27/22 Carla Burdick MD [address] [place] [address] Cardiology 03/03/22 03/03/22 Carla Burdick MD [address] [facility] [address] Primary Staff Physician Cardiology 03/03/22 Wire Charger Relationship Specialty Start Date End Date Doreen Le PA-C [address] [place], [place] 615671 PCP - General Family Practice 11/26/16 No, Referral Referring 01/31/19 [place] [address] [address] [place], [place] [phone] Primary Staff Physician Cardiology 07/15/21 Sheridan Cervantes partner marketing intern Dietary Service Aide 02/25/22 03/27/22 Carla Burdick MD [address] [place], [place] 888491 Primary Staff Physician Cardiology 03/03/22 Wire Charger Relationship Specialty Start Date End Date Doreen Le PA-C [address] [place] [address] PCP - General Family Practice 11/26/16 No, Referral Referring 01/31/19 [place] [address] [address] [place], [place] [phone] Primary Staff Physician Cardiology 07/15/21 Sheridan Cervantes RN Primary Care Dietary Service Aide 02/25/22 03/27/22 Carla Burdick MD [address] [facility] [place] [address] Primary Staff Physician Cardiology 03/03/22 Wire Charger Relationship Specialty Start Date End Date Doreen Le PA-C [address] [place] [address] PCP - General Family Practice 11/26/16 No, Referral Referring 01/31/19 [place] [address] [address] [place], [place] [phone] Primary Staff Physician Cardiology 07/15/21 Sheridan Cervantes, partner marketing intern Dietary Service Aide 02/25/22 03/27/22 Carla Burdick MD [address] [place] [address] Primary Staff Physician Cardiology 03/03/22 Wire Charger Relationship Specialty Start Date End Date Doreen Le PA-C [address] [place] [address] PCP - General Family Practice 11/26/16 No, Referral Referring 01/31/19 [place] [address] [facility] [place], [place] [phone] Primary Staff Physician Cardiology 07/15/21 Carla Burdick MD [address] [place] [address] Primary Staff Physician Cardiology 03/03/22 Wire Charger Relationship Specialty Start Date End Date Doreen Le PA-C [address] [place] [address] PCP - General Family Practice 11/26/16 No, Referral Referring 01/31/19 [place] [address] [address] [place], [place] [phone] Primary Staff Physician Cardiology 07/15/21 Carla Burdick MD [address] [place] [address] Primary Staff Physician Cardiology 03/03/22 Wire Charger Relationship Specialty Start Date End Date Doreen Le PA-C [address] [place] [address] PCP - General Family Medicine 11/26/16 No, Referral Referring 01/31/19 [place] [address] [place] [address] Primary Staff Physician Cardiology 07/15/21 Carla Burdick MD [address] [place] [address] Primary Staff Physician Cardiology 03/03/22 Wire Charger Relationship Specialty Start Date End Date Doreen Le PA-C [address] [place] [address] PCP - General Family Medicine 11/26/16 No, Referral Referring 01/31/19 [place] [address] [facility] [place] [address] Primary Staff Physician Cardiology 07/15/21 Carla Burdick MD [address] [place] [address] Primary Staff Physician Cardiology 03/03/22 Wire Charger Relationship Specialty Start Date End Date Doreen Le PA-C [address] [place] [address] PCP - General Family Medicine 11/26/16 No, Referral Referring 01/31/19 [place] [address] [place] [address] Primary Staff Physician Cardiology 07/15/21 Carla Burdick MD [address] [place] [address] Primary Staff Physician Cardiology 03/03/22 Wire Charger Relationship Specialty Start Date End Date Doreen Le PA-C [address] [place] [address] PCP - General Family Medicine 11/26/16 No, Referral Referring 01/31/19 [place] [address] [place], [place] [phone] Primary Staff Physician Cardiology 07/15/21 Carla Burdick MD [address] [place] [address] Cardiology 03/03/22 03/03/22 Carla Burdick MD [address] [place] [address] Primary Staff Physician Cardiology 03/03/22 Wire Charger Relationship Specialty Start Date End Date Doreen Le PA-C [address] [place] [address] PCP - General Family Medicine 11/26/16 No, Referral Referring 01/31/19 [place] [address] [place] [address] Primary Staff Physician Cardiology 07/15/21 Carla Burdick MD [address] [place] [address] Primary Staff Physician Cardiology 03/03/22 Wire Charger Relationship Specialty Start Date End Date Doreen Le PA-C [address] [place] [address] PCP - General Family Medicine 11/26/16 No, Referral Referring 01/31/19 [place] [address] [place] [address] Primary Staff Physician Cardiology 07/15/21 Carla Burdick MD [address] [facility] [place] [address] Primary Staff Physician Cardiology 03/03/22 Wire Charger Relationship Specialty Start Date End Date Doreen Le PA-C [address] [place] [address] PCP - General Family Medicine 11/26/16 No, Referral Referring 01/31/19 [place] [address] [facility] [place] [address] Primary Staff Physician Cardiology 07/15/21 Carla Burdick MD [address] [place] [address] Primary Staff Physician Cardiology 03/03/22 Wire Charger Relationship Specialty Start Date End Date Doreen Le PA-C [address] [place] [address] PCP - General Family Medicine 11/26/16 No, Referral Referring 01/31/19 [place] [address] [facility] [place] [address] Primary Staff Physician Cardiology 07/15/21 Carla Burdick MD [address] [place] [address] Primary Staff Physician Cardiology 03/03/22 Wire Charger Relationship Specialty Start Date End Date Doreen Le PA-C [address] [place] [address] PCP - General Family Medicine 11/26/16 No, Referral Referring 01/31/19 [place] [address] [place] [address] Primary Staff Physician Cardiology 07/15/21 Carla Burdick MD [address] [facility] [place] [address] Primary Staff Physician Cardiology 03/03/22 Wire Charger Relationship Specialty Start Date End Date Doreen Le PA-C [address] [place] [address] PCP - General Family Medicine 11/26/16 No, Referral Referring 01/31/19 [place] [address] [facility] [place], [place] 8121841 [phone] Primary Staff Physician Cardiology 07/15/21 Carla Burdick MD [address] [place] [address] Primary Staff Physician Cardiology 03/03/22 Sonny Lund MD [address] [place] [address] Hematology/Oncology 04/22/22 Wire Charger Relationship Specialty Start Date End Date Doreen Le PA-C [address] [place] [address] PCP - General Family Medicine 11/26/16 No, Referral Referring 01/31/19 [place] [address] [place], [place] 1950626 Primary Staff Physician Cardiology 07/15/21 Carla Burdick MD [address] [place] [address] Primary Staff Physician Cardiology 03/03/22 Sonny Lund MD [address] [place] [address] Hematology/Oncology 04/22/22 Wire Charger Relationship Specialty Start Date End Date Doreen Le PA-C [address] [place] [address] PCP - General Family Medicine 11/26/16 No, Referral Referring 01/31/19 [place] [address] [facility] [place] [address] Primary Staff Physician Cardiology 07/15/21 Carla Burdick MD [address] [facility] [place] [address] Primary Staff Physician Cardiology 03/03/22 Sonny Lund MD [address] [place] [address] Hematology/Oncology 04/22/22 Wire Charger Relationship Specialty Start Date End Date Doreen Le PA-C [address] [facility] [place] [address] PCP - General Family Medicine 11/26/16 No, Referral Referring 01/31/19 [place] [address] [place] [address] Primary Staff Physician Cardiology 07/15/21 Carla Burdick MD [address] [facility] [place] [address] Primary Staff Physician Cardiology 03/03/22 Sonny Lund MD [address] [facility] [place] [address] Hematology/Oncology 04/22/22 Wire Charger Relationship Specialty Start Date End Date Doreen Le PA-C [address] [facility] [place] [address] PCP - General Family Medicine 11/26/16 No, Referral Referring 01/31/19 [place] [address] [place] [address] Primary Staff Physician Cardiology 07/15/21 Carla Burdick MD [address] [facility] [place] [address] Primary Staff Physician Cardiology 03/03/22 Sonny Lund MD [address] [facility] [place] [address] Hematology/Oncology 04/22/22 Wire Charger Relationship Specialty Start Date End Date Doreen Le PA-C [address] [facility] [place] [address] PCP - General Family Medicine 11/26/16 No, Referral Referring 01/31/19 [place] [address] [facility] [place] [address] Primary Staff Physician Cardiology 07/15/21 Carla Burdick MD [address] [facility] [place] [address] Primary Staff Physician Cardiology 03/03/22 Sonny Lund MD [address] [facility] [place] [address] Hematology/Oncology 04/22/22 Wire Charger Relationship Specialty Start Date End Date Doreen Le PA-C [address] [facility] [place] [address] PCP - General Family Medicine 11/26/16 No, Referral Referring 01/31/19 [place] [address] [facility] [place] [address] Primary Staff Physician Cardiology 07/15/21 Carla Burdick MD [address] [facility] [place] [address] Primary Staff Physician Cardiology 03/03/22 Sonny Lund MD [address] [address] [place] [address] Hematology/Oncology 04/22/22 Wire Charger Relationship Specialty Start Date End Date Doreen Le PA-C [address] [facility] [place] [address] PCP - General Family Medicine 11/26/16 No, Referral Referring 01/31/19 [place] [address] [place] [address] Primary Staff Physician Cardiology 07/15/21 Carla Burdick MD [address] [facility] [place] [address] Primary Staff Physician Cardiology 03/03/22 Sonny Lund MD [address] [facility] [place] [address] Hematology/Oncology 04/22/22 Wire Charger Relationship Specialty Start Date End Date Doreen Le PA-C [address] [facility] [place] [address] PCP - General Family Medicine 11/26/16 No, Referral Referring 01/31/19 [place] [address] [place] [address] Primary Staff Physician Cardiology 07/15/21 Carla Burdick MD [address] [facility] [place] [address] Primary Staff Physician Cardiology 03/03/22 Sonny Lund MD [address] [facility] [place] [address] Hematology/Oncology 04/22/22 Wire Charger Relationship Specialty Start Date End Date Doreen Le PA-C [address] [facility] [place] [address] PCP - General Family Medicine 11/26/16 No, Referral Referring 01/31/19 [place] [address] [facility] [place] [address] Primary Staff Physician Cardiology 07/15/21 Carla Burdick MD [address] [facility] [place] [address] Primary Staff Physician Cardiology 03/03/22 Sonny Lund MD [address] [facility] [address] Hematology/Oncology 04/22/22 Wire Charger Relationship Specialty Start Date End Date Doreen Le PACarolineC [address] [place] [address] PCP - General Family Medicine 11/26/16 No, Referral Referring 01/31/19 [place] [address] [facility] [place] [address] Primary Staff Physician Cardiology 07/15/21 Carla Burdick MD [address] [facility] [place] [address] Primary Staff Physician Cardiology 03/03/22 Sonny Lund MD [address] [facility] [place] [address] Hematology/Oncology 04/22/22 Wire Charger Relationship Specialty Start Date End Date Doreen Le PA-C [address] [place] [address] PCP - General Family Medicine 11/26/16 No, Referral Referring 01/31/19 [place] [address] [place] [address] Primary Staff Physician Cardiology 07/15/21 Carla Burdick MD [address] [place] [address] Primary Staff Physician Cardiology 03/03/22 Sonny Lund MD [address] [facility] [place] [address] Hematology/Oncology 04/22/22 Wire Charger Relationship Specialty Start Date End Date Doreen Le PA-C [address] [facility] [place] [place] [address] PCP - General Family Medicine 11/26/16 No, Referral Referring 01/31/19 [place] [address] [place], [place] 1735445 [phone] Primary Staff Physician Cardiology 07/15/21 Carla Burdick MD [address] [facility] [place] [address] Primary Staff Physician Cardiology 03/03/22 Sonny Lund MD [address] [facility] [address] Hematology/Oncology 04/22/22 Wire Charger Relationship Specialty Start Date End Date Doreen Le PA-C [address] [facility] [place] [address] PCP - General Family Medicine 11/26/16 No, Referral Referring 01/31/19 [place] [address] [place] [address] Primary Staff Physician Cardiology 07/15/21 Carla Burdick MD [address] [facility] [address] Primary Staff Physician Cardiology 03/03/22 Sonny Lund MD [address] [facility] [place] [address] Hematology/Oncology 04/22/22 Wire Charger Relationship Specialty Start Date End Date Doreen Le PA-C [address] [place], [place] 434521 PCP - General Family Medicine 11/26/16 No, Referral Referring 01/31/19 [place] [address] [address] [place], [place] 8377026 Primary Staff Physician Cardiology 07/15/21 Carla Burdick MD [address] [facility] [place], [place] 757211 Primary Staff Physician Cardiology 03/03/22 Sonny Lund MD [address] [facility] [place] [address] Hematology/Oncology 04/22/22 Wire Charger Relationship Specialty Start Date End Date Doreen Le PA-C [address] [place], [place] 490301 PCP - General Family Medicine 11/26/16 No, Referral Referring 01/31/19 [place] [address] [address] [place], [place] 4160726 Primary Staff Physician Cardiology 07/15/21 Carla Burdick MD [address] [facility] [place] 985811 Primary Staff Physician Cardiology 03/03/22 Sonny Lund MD [address] [facility] [place] [address] Hematology/Oncology 04/22/22 Wire Charger Relationship Specialty Start Date End Date Doreen Le PA-C [address] [place], [place] 790251 PCP - General Family Medicine 11/26/16 No, Referral Referring 01/31/19 [place] [address] [address] [place], [place] 8495626 Primary Staff Physician Cardiology 07/15/21 Carla Burdick MD [address] [place], [place] 884911 Primary Staff Physician Cardiology 03/03/22 Sonny Lund MD [address] [facility] [place], [place] 431481 Hematology/Oncology 04/22/22 Wire Charger Relationship Specialty Start Date End Date Doreen Le PA-C [address] [place], [place] 947791 PCP - General Family Medicine 11/26/16 No, Referral Referring 01/31/19 [place] [address] [address] [place], [place] 3778326 Primary Staff Physician Cardiology 07/15/21 Carla Burdick MD [address] [facility] [place], [place] 766521 Primary Staff Physician Cardiology 03/03/22 Sonny Lund MD [address] [facility] [place] [address] Hematology/Oncology 04/22/22 Wire Charger Relationship Specialty Start Date End Date Doreen Le PA-C [address] [place], [place] 630531 PCP - General Family Medicine 11/26/16 No, Referral Referring 01/31/19 [place] [address] [address] [place], [place] 5891726 Primary Staff Physician Cardiology 07/15/21 Carla Burdick MD [address] [place], [place] 850081 Primary Staff Physician Cardiology 03/03/22 Sonny Lund MD [address] [place] [address] Hematology/Oncology 04/22/22 Wire Charger Relationship Specialty Start Date End Date Doreen Le PA-C [address] [place] [address] PCP - General Family Medicine 11/26/16 No, Referral Referring 01/31/19 [place] [address] [address] [place], [place] 8288426 Primary Staff Physician Cardiology 07/15/21 Carla Burdick MD [address] [place], [place] 690091 Primary Staff Physician Cardiology 03/03/22 Sonny Lund MD [address] [facility] [place] [address] Hematology/Oncology 04/22/22 Wire Charger Relationship Specialty Start Date End Date Doreen Le PA-C [address] [place], [place] 744171 PCP - General Family Medicine 11/26/16 No, Referral Referring 01/31/19 [place] [address] [address] [place], [place] 7537026 Primary Staff Physician Cardiology 07/15/21 Carla Burdick MD [address] [place], [place] 527341 Primary Staff Physician Cardiology 03/03/22 Sonny Lund MD [address] [place], [place] 109791 Hematology/Oncology 04/22/22 Wire Charger Relationship Specialty Start Date End Date Doreen Le PA-C [address] [place], [place] 086981 PCP - General Family Medicine 11/26/16 No, Referral Referring 01/31/19 [place] [address] [address] [place], [place] 3806326 Primary Staff Physician Cardiology 07/15/21 Carla Burdick MD [address] [place], [place] 964841 Primary Staff Physician Cardiology 03/03/22 Sonny Lund MD [address] [facility] [place] [address] Hematology/Oncology 04/22/22 Wire Charger Relationship Specialty Start Date End Date Doreen Le PA-C [address] [place], [place] 019531 PCP - General Family Medicine 11/26/16 No, Referral Referring 01/31/19 [place] [address] [address] [place], [place] 4384226 Primary Staff Physician Cardiology 07/15/21 Carla Burdick MD [address] [place], [place] 152801 Primary Staff Physician Cardiology 03/03/22 Sonny Lund MD [address] [place], [place] 511071 Hematology/Oncology 04/22/22 Wire Charger Relationship Specialty Start Date End Date Doreen Le PA-C [address] [place], [place] 934501 PCP - General Family Medicine 11/26/16 No, Referral Referring 01/31/19 [place] [address] [address] [place], [place] 0540026 Primary Staff Physician Cardiology 07/15/21 Carla Burdick MD [address] [place], [place] 288181 Primary Staff Physician Cardiology 03/03/22 Sonny Lund MD [address] [facility] [place], [place] 519811 Hematology/Oncology 04/22/22 Wire Charger Relationship Specialty Start Date End Date Doreen Le PA-C [address] [place], [place] 117271 PCP - General Family Medicine 11/26/16 No, Referral Referring 01/31/19 [place] [address] [address] [place], [place] 1018126 Primary Staff Physician Cardiology 07/15/21 Carla Burdick MD [address] [place], [place] 927001 Primary Staff Physician Cardiology 03/03/22 Sonny Lund MD [address] [facility] [place], [place] 681631 Hematology/Oncology 04/22/22 Wire Charger Relationship Specialty Start Date End Date Doreen Le PA-C [address] [place], [place] 643001 PCP - General Family Medicine 11/26/16 No, Referral Referring 01/31/19 [place] [address] [address] [place], [place] 0088526 Primary Staff Physician Cardiology 07/15/21 Carla Burdick MD [address] [place], [place] 61716691 Primary Staff Physician Cardiology 03/03/22 Sonny Lund MD [address] [facility] [place] [place] 753151 Hematology/Oncology 04/22/22 Wire Charger Relationship Specialty Start Date End Date Doreen Le PA-C [address] [place], [place] 826661 PCP - General Family Medicine 11/26/16 No, Referral Referring 01/31/19 [place] [address] [address] [place], [place] 9577026 Primary Staff Physician Cardiology 07/15/21 Carla Burdick MD [address] [place], [place] 122791 Primary Staff Physician Cardiology 03/03/22 Sonny Lund MD [address] [facility] [place] 924461 Hematology/Oncology 04/22/22 Wire Charger Relationship Specialty Start Date End Date Doreen Le PA-C [address] [place], [place] 089941 PCP - General Family Medicine 11/26/16 No, Referral Referring 01/31/19 [place] [address] [address] [place], [place] 5417326 Primary Staff Physician Cardiology 07/15/21 Carla Burdick MD [address] [place], [place] 567201 Primary Staff Physician Cardiology 03/03/22 Sonny Lund MD [address] [facility] [place], [place] 304941 Hematology/Oncology 04/22/22 Wire Charger Relationship Specialty Start Date End Date Doreen Le PA-C [address] [place], [place] 884701 PCP - General Family Medicine 11/26/16 No, Referral Referring 01/31/19 [place] [address] [address] [place], [place] 6965326 Primary Staff Physician Cardiology 07/15/21 Carla Burdick MD [address] [facility] [place] 799281 Primary Staff Physician Cardiology 03/03/22 Sonny Lund MD [address] [place] 219601 Hematology/Oncology 04/22/22 Wire Charger Relationship Specialty Start Date End Date Doreen Le PA-C [address] [place], [place] 836841 PCP - General Family Medicine 11/26/16 No, Referral Referring 01/31/19 [place] [address] [place] 2329526 Primary Staff Physician Cardiology 07/15/21 Carla Burdick MD [address] [place] 346191 Primary Staff Physician Cardiology 03/03/22 Sonny Lund MD [address] [place] [address] Hematology/Oncology 04/22/22 Wire Charger Relationship Specialty Start Date End Date Doreen Le PA-C [address] [place], [place] 290161 PCP - General Family Medicine 11/26/16 No, Referral Referring 01/31/19 [place] [address] [address] [place], [place] 3316926 Primary Staff Physician Cardiology 07/15/21 Carla Burdick MD [address] [facility] [place] 313001 Primary Staff Physician Cardiology 03/03/22 Snony Lund MD [address] [place] [place] 164261 Hematology/Oncology 04/22/22 Wire Charger Relationship Specialty Start Date End Date Doreen Le PA-C [address] [place], [place] 458661 PCP - General Family Medicine 11/26/16 No, Referral Referring 01/31/19 [place] [address] [address] [place], [place] 1653926 Primary Staff Physician Cardiology 07/15/21 Carla Burdick MD [address] [place] [place] 466821 Primary Staff Physician Cardiology 03/03/22 Sonny Lund MD [address] [place] 008791 Hematology/Oncology 04/22/22 Wire Charger Relationship Specialty Start Date End Date Doreen Le PA-C [address] [place], [place] 022151 PCP - General Family Medicine 11/26/16 No, Referral Referring 01/31/19 [place] [address] [address] [place], [place] 3389126 Primary Staff Physician Cardiology 07/15/21 Carla Burdick MD [address] [facility] [place], [place] 827301 Primary Staff Physician Cardiology 03/03/22 Sonny Lund MD [address] [place] 89[address]11 Hematology/Oncology 04/22/22 Wire Charger Relationship Specialty Start Date End Date Doreen Le PA-C [address] [place], [place] 338911 PCP - General Family Medicine 11/26/16 No, Referral Referring 01/31/19 [place] [address] [address] [place], [place] 8937026 Primary Staff Physician Cardiology 07/15/21 Carla Burdick MD [address] [place] 148661 Primary Staff Physician Cardiology 03/03/22 Sonny Lund MD [address] [place] 864431 Hematology/Oncology 04/22/22 Wire Charger Relationship Specialty Start Date End Date Doreen Le PA-C [address] [place], [place] 490541 PCP - General Family Medicine 11/26/16 No, Referral Referring 01/31/19 [place] [address] [address] [place], [place] 0777826 Primary Staff Physician Cardiology 07/15/21 Carla Burdick MD [address] [facility] [place] 953251 Primary Staff Physician Cardiology 03/03/22 Sonny Lund MD [address] [place] [address] Hematology/Oncology 04/22/22 Wire Charger Relationship Specialty Start Date End Date Doreen Le PA-C [address] [place] [address] PCP - General Family Medicine 11/26/16 No, Referral Referring 01/31/19 [place] [address] [address] [place], [place] 7323026 Primary Staff Physician Cardiology 07/15/21 Carla Burdick MD [address] [place] 038461 Primary Staff Physician Cardiology 03/03/22 Sonny Lund MD [address] [place] 018301 Hematology/Oncology 04/22/22 Wire Charger Relationship Specialty Start Date End Date Doreen Le PA-C [address] [place], [place] 044381 PCP - General Family Medicine 11/26/16 No, Referral Referring 01/31/19 [place] [address] [address] [place], [place] 6213226 Primary Staff Physician Cardiology 07/15/21 Carla Burdick MD [address] [facility] [place] [place] 668441 Primary Staff Physician Cardiology 03/03/22 Sonny Lund MD [address] [place] [place] 384081 Hematology/Oncology 04/22/22 Wire Charger Relationship Specialty Start Date End Date Doreen Le PA-C [address] [place] [address] PCP - General Family Medicine 11/26/16 No, Referral Referring 01/31/19 [place] [address] [address] [place], [place] 6645226 Primary Staff Physician Cardiology 07/15/21 Carla Burdick MD [address] [place] 847931 Primary Staff Physician Cardiology 03/03/22 Sonny Lund MD [address] [place] 768951 Hematology/Oncology 04/22/22 Wire Charger Relationship Specialty Start Date End Date Doreen Le PA-C [address] [place] [address] PCP - General Family Medicine 11/26/16 No, Referral Referring 01/31/19 [place] [address] [address] [place], [place] 5504726 Primary Staff Physician Cardiology 07/15/21 Carla Burdick MD [address] [place], [place] 506951 Primary Staff Physician Cardiology 03/03/22 Sonny Lund MD [address] [place] [address] Hematology/Oncology 04/22/22 Wire Charger Relationship Specialty Start Date End Date Doreen Le PA-C [address] [place] [address] PCP - General Family Medicine 11/26/16 No, Referral Referring 01/31/19 [place] [address] [address] [place], [place] 2642726 Primary Staff Physician Cardiology 07/15/21 Carla Burdick MD [address] [facility] [place] [place] 492161 Primary Staff Physician Cardiology 03/03/22 Sonny Lund MD [address] [place] 008161 Hematology/Oncology 04/22/22 Wire Charger Relationship Specialty Start Date End Date Doreen Le PA-C [address] [place] [address] PCP - General Family Medicine 11/26/16 No, Referral Referring 01/31/19 [place] [address] [address] [place], [place] 3396226 Primary Staff Physician Cardiology 07/15/21 Carla Burdick MD [address] [place] [address] Primary Staff Physician Cardiology 03/03/22 Sonny Lund MD [address] [place] [address] Hematology/Oncology 04/22/22 Wire Charger Relationship Specialty Start Date End Date Doreen Le PA-C [address] [place] [address] PCP - General Family Medicine 11/26/16 No, Referral Referring 01/31/19 [place] [address] [address] [place], [place] 9680326 Primary Staff Physician Cardiology 07/15/21 Carla Burdick MD [address] [place], [place] 493951 Primary Staff Physician Cardiology 03/03/22 Sonny Lund MD [address] [place] [address] Hematology/Oncology 04/22/22 Wire Charger Relationship Specialty Start Date End Date Doreen Le PA-C [address] [place] [address] PCP - General Family Medicine 11/26/16 No, Referral Referring 01/31/19 [place] [address] [address] [place], [place] 2179926 Primary Staff Physician Cardiology 07/15/21 Carla Burdick MD [address] [place] [address] Primary Staff Physician Cardiology 03/03/22 Sonny Lund MD [address] [place] [address] Hematology/Oncology 04/22/22 Wire Charger Relationship Specialty Start Date End Date Doreen Le PA-C [address] [place] [address] PCP - General Family Medicine 11/26/16 No, Referral Referring 01/31/19 [place] [address] [address] [place], [place] 8842526 Primary Staff Physician Cardiology 07/15/21 Carla Burdick MD [address] [place] [address] Primary Staff Physician Cardiology 03/03/22 Sonny Lund MD [address] [place] [address] Hematology/Oncology 04/22/22 Wire Charger Relationship Specialty Start Date End Date Doreen Le PA-C [address] [place] [address] PCP - General Family Medicine 11/26/16 No, Referral Referring 01/31/19 [place] [address] [place], [place] 7575226 Primary Staff Physician Cardiology 07/15/21 Wire Charger Relationship Specialty Start Date End Date Doreen Le PA-C [address] [place], [place] 837271 PCP - General Family Medicine 11/26/16 No, Referral Referring 01/31/19 [place] [address] [place] [address] Primary Staff Physician Cardiology 07/15/21 Carla Burdick MD [address] [place] 108691 Primary Staff Physician Cardiology 03/03/22 Sonny Lund MD [address] [place] [address] Hematology/Oncology 04/22/22 Wire Charger Relationship Specialty Start Date End Date Dianne Le PA-C PCP - General Family Medicine 11/26/16 No, Referral Referring 01/31/19 [place] [address] [place], [place] 8814226 Primary Staff Physician Cardiology 07/15/21 Carla Burdick MD [address] [facility] [place] [place] 455851 Primary Staff Physician Cardiology 03/03/22 Sonny Lund MD [address] [place] [address] Hematology/Oncology 04/22/22 Deysi Nicholson APRN.SIGN BOARD ERECTOR [address] [place] [address] [employer] Worker Family Medicine 06/09/24 Sandra Bell VOLUNTEER SERVICES ASSISTANT.SIGN BOARD ERECTOR [address] [facility] [place] [address] [employer] [facility] 06/09/24 Wire Charger Relationship Specialty Start Date End Date No, Referral Referring 01/31/19 [place] [address] [address] [place], [place] 8899826 Primary Staff Physician Cardiology 07/15/21 Carla Burdick MD [address] [place] [address] Primary Staff Physician Cardiology 03/03/22 Sonny Lund MD [address] [place] [address] Hematology/Oncology 04/22/22 Deysi Nicholson APRN.SIGN BOARD ERECTOR [address] [facility] [place] [address] [employer] Worker Family Medicine 06/09/24 Sandra Bell VOLUNTEER SERVICES ASSISTANT.SIGN BOARD ERECTOR [address] [facility] [place] [address] [employer] Worker Family [facility] 06/09/24 Wire Charger Relationship Specialty Start Date End Date Deysi Nicholson, VOLUNTEER SERVICES ASSISTANT.SIGN BOARD ERECTOR [address] [place], [place] 063521 PCP - General Family Medicine 07/07/24 No, Referral Referring 01/31/19 [place] [address] [place] [address] Primary Staff Physician Cardiology 07/15/21 Carla Burdick MD [address] [place], [place] 253261 Primary Staff Physician Cardiology 03/03/22 Sonny Lund MD [address] [place], [place] 234431 Hematology/Oncology 04/22/22 Deysi Nicholson, VOLUNTEER SERVICES ASSISTANT.SIGN BOARD ERECTOR [address] [place], [place] 141441 [employer] Worker Family Medicine 06/09/24 Sandra Bell, VOLUNTEER SERVICES ASSISTANT.SIGN BOARD ERECTOR [address] [place], [place] 746401 [employer] Worker Family Medicine 06/09/24 Wire Charger Relationship Specialty Start Date End Date Deysi Nicholson, VOLUNTEER SERVICES ASSISTANT.SIGN BOARD ERECTOR [address] [place], [place] 431891 PCP - General Family Medicine 07/07/24 No, Referral Referring 01/31/19 [place] [address] [address] [place], [place] 4736126 Primary Staff Physician Cardiology 07/15/21 Carla Burdick MD [address] [place] [address] Primary Staff Physician Cardiology 03/03/22 Sonny Lund MD [address] [place] [address] Hematology/Oncology 04/22/22 Deysi Nicholson APRN.SIGN BOARD ERECTOR [address] [place] [address] [facility] 06/09/24 Sandra Bell VOLUNTEER SERVICES ASSISTANT.SIGN BOARD ERECTOR [address] [place] [address] [facility] 06/09/24 Wire Charger Relationship Specialty Start Date End Date Deysi Nicholson APRN.SIGN BOARD ERECTOR [address] [place] [address] PCP - General Family Medicine 07/07/24 No, Referral Referring 01/31/19 [place] [address] [place] 6795826 Primary Staff Physician Cardiology 07/15/21 Carla Burdick MD [address] [place] [address] Primary Staff Physician Cardiology 03/03/22 Sonny Lund MD [address] [place] [address] Hematology/Oncology 04/22/22 Deysi Nicholson, VOLUNTEER SERVICES ASSISTANT.SIGN BOARD ERECTOR [address] [facility] [place] [address] [employer] Worker Family Medicine 06/09/24 Sandra Bell APRN.SIGN BOARD ERECTOR [address] [place] [address] [employer] Worker Family Medicine 06/09/24 Wire Charger Relationship Specialty Start Date End Date Deysi Nicholson APRN.SIGN BOARD ERECTOR [address] [place] [address] PCP - General Family Medicine 07/07/24 No, Referral Referring 01/31/19 [place] [address] [address] [place], [place] 9796426 Primary Staff Physician Cardiology 07/15/21 Carla Burdick MD [address] [place] [address] Primary Staff Physician Cardiology 03/03/22 Sonny Lund MD [address] [place] [address] Hematology/Oncology 04/22/22 Deysi Nicholson APRN.SIGN BOARD ERECTOR [address] [place] [address] [employer] Worker Family [facility] 06/09/24 Sandra Bell APRN.SIGN BOARD ERECTOR [address] [place] [address] [employer] Worker Family [facility] 06/09/24 Wire Charger Relationship Specialty Start Date End Date Deysi Nicholson APRN.SIGN BOARD ERECTOR [address] [place] [address] PCP - General Family Medicine 07/07/24 No, Referral Referring 01/31/19 [place] [address] [address] [place], [place] 0778026 Primary Staff Physician Cardiology 07/15/21 Carla Burdick MD [address] [facility] [facility] [address] [place] [address] Primary Staff Physician Cardiology 03/03/22 Sonny Lund MD [address] [place] [address] Hematology/Oncology 04/22/22 Deysi Nicholson APRN.SIGN BOARD ERECTOR [address] [place] [address] [employer] Worker Family Medicine 06/09/24 Sandra Bell APRN.SIGN BOARD ERECTOR [address] [place] [address] [employer] Worker Family [facility] 06/09/24 Wire Charger Relationship Specialty Start Date End Date Deysi Nicholson APRN.SIGN BOARD ERECTOR [address] [place] [address] PCP - General Family Medicine 07/07/24 No, Referral Referring 01/31/19 [place] [address] [address] [place], [place] 6371226 Primary Staff Physician Cardiology 07/15/21 Carla Burdick MD [address] [place], [place] 911551 Primary Staff Physician Cardiology 03/03/22 Sonny Lund MD [address] [place] [place], [place] 185461 Hematology/Oncology 04/22/22 Deysi Nicholson APRN.SIGN BOARD ERECTOR [address] [place], [place] 113231 [facility] 06/09/24 Sandra Bell VOLUNTEER SERVICES ASSISTANT.SIGN BOARD ERECTOR [address] [place], [place] 65068691 [facility] 06/09/24 Wire Charger Relationship Specialty Start Date End Date Deysi Nicholson APRN.SIGN BOARD ERECTOR [address] [place], [place] 665471 PCP - General Family Medicine 07/07/24 No, Referral Referring 01/31/19 [place] [address] [address] [place], [place] 2363526 Primary Staff Physician Cardiology 07/15/21 Carla Burdick MD [address] [place], [place] 536781 Primary Staff Physician Cardiology 03/03/22 Sonny Lund MD [address] [place] [address] Hematology/Oncology 04/22/22 Deysi Nicholson APRN.SIGN BOARD ERECTOR [address] [place], [place] 757921 [facility] 06/09/24 Sandra Bell VOLUNTEER SERVICES ASSISTANT.SIGN BOARD ERECTOR [address] [place] [address] [facility] 06/09/24 Wire Charger Relationship Specialty Start Date End Date Deysi Nicholson, VOLUNTEER SERVICES ASSISTANT.SIGN BOARD ERECTOR [address] [place] [address] PCP - General Family Medicine 07/07/24 No, Referral Referring 01/31/[place] [address] [address] [place], [place] 7484526 Primary Staff Physician Cardiology 07/15/21 Carla Burdick MD [address] [place] [address] Primary Staff Physician Cardiology 03/03/22 Sonny Lund MD [address] [place] [address] Hematology/Oncology 04/22/22 Deysi Nicholson, VOLUNTEER SERVICES ASSISTANT.SIGN BOARD ERECTOR [address] [place] [address] [facility] 06/09/24 Sandra Bell VOLUNTEER SERVICES ASSISTANT.SIGN BOARD ERECTOR [address] [place] [address] [facility] 06/09/24 Wire Charger Relationship Specialty Start Date End Date Deysi Nicholson, VOLUNTEER SERVICES ASSISTANT.SIGN BOARD ERECTOR [address] [place] [address] PCP - General Family Medicine 07/07/24 No, Referral Referring 01/31/19 [place] [address] [address] [place], [place] 9060226 Primary Staff Physician Cardiology 07/15/21 Carla Burdick MD [address] [place], [place] 060491 Primary Staff Physician Cardiology 03/03/22 Sonny Lund MD [address] [place] [address] Hematology/Oncology 04/22/22 Deysi Nicholson, TERI.SIGN BOARD ERECTOR [address] [place] [address] [employer] Worker Family Medicine 06/09/24 Sandra Bell VOLUNTEER SERVICES ASSISTANT.SIGN BOARD ERECTOR [address] [place], [place] 085371 [employer] Worker Family Medicine 06/09/24 Wire Charger Relationship Specialty Start Date End Date Deysi Nicholson, TERI.SIGN BOARD ERECTOR [address] [place], [place] 273063 [phone] PCP - General Family Medicine 07/07/24 No, Referral Referring 01/31/19 [place] [address] [place] [address] Primary Staff Physician Cardiology 07/15/21 Carla Burdick MD [address] [place] [address] Primary Staff Physician Cardiology 03/03/22 Sonny Lund MD [address] [place] [address] Hematology/Oncology 04/22/22 Deysi Nicholson APRN.SIGN BOARD ERECTOR [address] [place] [address] [employer] Worker Family Medicine 06/09/24 Sandra Bell APRN.SIGN BOARD ERECTOR [address] [place] [address] [facility] 06/09/24 Wire Charger Relationship Specialty Start Date End Date Deysi Nicholson APRN.SIGN BOARD ERECTOR [address] [place] [address] PCP - General Family Medicine 07/07/24 No, Referral Referring 01/31/19 [place] [address] [place] [id number] Primary Staff Physician Cardiology 07/15/21 Carla Burdick MD [address] [place] [address] Primary Staff Physician Cardiology 03/03/22 Sonny Lund MD [address] [place] [address] Hematology/Oncology 04/22/22 Deysi Nicholson APRN.SIGN BOARD ERECTOR [address] [place] [address] [facility] 06/09/24 Sandra Bell VOLUNTEER SERVICES ASSISTANT.SIGN BOARD ERECTOR [address] [place] [address] [employer] Worker Family [facility] 06/09/24 Wire Charger Relationship Specialty Start Date End Date Deysi Nicholson APRN.SIGN BOARD ERECTOR [address] [place], [place] [id number] [phone] PCP - General Family Medicine 07/07/24 No, Referral Referring 01/31/19 [place] [address] [place] [address] Primary Staff Physician Cardiology 07/15/21 Carla Burdick MD [address], [place] [id number] Primary Staff Physician Cardiology 03/03/22 Deysi Nicholson APRN.SIGN BOARD ERECTOR [address] [place] [address] [employer] Worker [facility] 06/09/24 Sandra Bell VOLUNTEER SERVICES ASSISTANT.SIGN BOARD ERECTOR [address] [place], [place] [id number] [phone] Timber [employer] Worker [facility] 06/09/24 Wire Charger Relationship Specialty Start Date End Date Deysi Nicholson APRN.SIGN BOARD ERECTOR [address] [place] [address] PCP - General Family Medicine 07/07/24 No, Referral Referring 01/31/19 [place] [address] [place] [address] Primary Staff Physician Cardiology 07/15/21 Carla Burdick MD [address] [place], [place] [address] [phone] Primary Staff Physician Cardiology 03/03/22 Deysi Nicholson APRN.SIGN BOARD ERECTOR [address] [place] [address] [facility] 06/09/24 Sandra Bell VOLUNTEER SERVICES ASSISTANT.SIGN BOARD ERECTOR [address] [place] [address] [facility] 06/09/24 Wire Charger Relationship Specialty Start Date End Date Deysi Nicholson APRN.SIGN BOARD ERECTOR [address] [place] [address] PCP - General Family Medicine 07/07/24 No, Referral Referring 01/31/19 [place] [address] [place], [place] [id number] Primary Staff Physician Cardiology 07/15/21 Carla Burdick MD [address] [place] [address] Primary Staff Physician Cardiology 03/03/22 Deysi Nicholson APRN.SIGN BOARD ERECTOR [address] [place] [address] [facility] 06/09/24 Sandra Bell VOLUNTEER SERVICES ASSISTANT.SIGN BOARD ERECTOR [address] [place] [address] [facility] 06/09/24 Wire Charger Relationship Specialty Start Date End Date Deysi Nicholson APRN.SIGN BOARD ERECTOR [address] [place] [address] PCP - General Family Medicine 07/07/24 No, Referral Referring 01/31/19 [place] [address] [place], [place] [id number] Primary Staff Physician Cardiology 07/15/21 Carla Burdick MD [address] [place] [address] Primary Staff Physician Cardiology 03/03/22 Deysi Nicholson APRN.SIGN BOARD ERECTOR [address] [place] [address] [facility] 06/09/24 Sandra Bell APRN.SIGN BOARD ERECTOR [address] [place] [address] [facility] 06/09/24 Goals (unrecognized section and content) Goals may be documented in a n alternate section FOR RECORDS PERTAINING TO PATIENTS WHO ARE OR HAVE BEEN ENROLLED IN A CHEMICAL DEPENDENCY/SUBSTANCEABUSE PROGRAM, SOME INFORMATION MAY BE OMITTED. This clinical summary was aggregated from multiple sources. Caution should be exercised in using it in the provision of clinical care. This summary normalizes information from multiple sources, and as a consequence, information in this document may materially change the coding, format and clinical context of patient data. In addition, data may be omitted in some cases. CLINICAL DECISIONS SHOULD BE BASED ON THE PRIMARY CLINICAL RECORDS. [facility] [employer] [facility] provides no warranty or guarantee of the accuracy or completeness of information in this document.
[2025-01-07 13:45] LABS: Anion Gap 15 (5-15); BUN 47 mg/dL (4-19); BUN/Creat Ratio 26.4 RATIO (10-20); Calcium,Total 8.8 mg/dL (7.6-11.0); Carbon Dioxide 23.9 mmol/L (21.0-32.0); Chloride 91 mmol/L (98-108); Estimated Creatinine Clearance 24.26 ml/min (50-250); Glucose 194 mg/dL (70-99); Potassium 4.2 mmol/L (3.3-5.1)
[2025-01-07 13:48] LABS: Pro- Brain NATRIURETIC PEPTIDE 10409 pg/mL (<=1800); Troponin T High Sensitivity 71 ng/L (<=14)
[2025-01-07 14:16] LABS: Anisocytosis 1+
[2025-01-07 15:45] LABS: Troponin T High Sens 2 HR 68 ng/L (<=14)
--- NOTE | 2025-01-07 16:29 | HP.PCM.HOS_ITS ---
HPI - General General Date of Admission: 01/07/25 Date of Service: 01/07/25 Chief Complaint: Increased shortness of breath and swelling HPI Narrative YAO SANCHES, is a 79-year-old female history of hypertension, diabetes, pacemaker, AV replacement, A-fib status post Watchman device, congestive heart failure presented [facility] ED 01/07/2025 with several weeks of shortness of breath and bilateral lower extremity edema. Reportedly in September 2023 she had surgery in [place] for some kind of intra-abdominal artery blockage and was placed on Plavix and aspirin and was having difficulties with her heart failure at that time. She came home at the end of October and has been taking her Lasix 40 twice daily and spironolactone 12.5 mg twice daily without improvement. She recently followed with her [facility] field investigator with increase in her Lasix by mouth but has not had improvement. Patient is having somewhat shortness of breath on exertion that she is having difficulty with her ADLs and notes her legs feel so tight and swollen that she has difficulty bending over to change her close/completing ADLs. In the ED temperature 97.7, heart rate 78 with blood pressure 135/57, respiratory rate 16 and pulse ox 100% on room air. BMP revealed sodium of 129 with last value of 132 in 2020, BUN 47 creatinine of 1.77, last creatinine in our system in 2020 was 1.65. CBC with hemoglobin of 9.4 and pro BNP 10,409. First troponin of 71 with repeat of 68 and chest x-ray with evidence of fluid overload. Hospitalist contacted for admission for heart failure exacerbation. Pt evaluated at bedside. She reports history as above with increasing shortness of breath and lower extremity swelling over the past couple weeks to the point that she is having difficulty with her ADLs now, increased Lasix on an outpatient basis did not improve, has a little bit of a chronic cough from drainage but denies any fevers, no chest pain, no bowel or bladder changes. ROS otherwise negative [facility] Medical History Anxiety Brain aneurysm Bronchospasm with bronchitis, acute Cardiac arrhythmia Chest pain, musculoskeletal CHF exacerbation Diabetes Diabetes mellitus type 2 in obese Family history of brain aneurysm Fever Heart disease History of cancer HLD (hyperlipidemia) HTN (hypertension) Laceration of right middle finger Obesity (BMI 30.0-34.9) PAD (peripheral artery disease) PAF (paroxysmal atrial fibrillation) Skin cancer Skin tear of left forearm without complication URI (upper respiratory infection) Home Medications Medication Instructions Recorded Last Taken Type rivaroxaban 20 mg tablet 15 mg PO DAILY blood thinner 07/13/15 03/23/19 History simvastatin 40 mg tablet 20 mg PO QHS cholesterol 03/2003/23/19 History furosemide 20 mg tablet 20 mg PO DAILY diuretic 11/0203/24/19 History lisinopril 40 mg tablet 20 mg PO DAILY blood pressur e 12/02/17 03/24/19 History amlodipine 10 mg tablet 5 mg PO BID 03/24/19 9 History coenzyme Q10 100 mg capsule 100 mg PO DAILY 03/24/19 0 03/23/19 History magnesium oxide 200 mg PO DAILY 02/13/21 Unk nown History metoprolol succinate 25 mg 25 mg PO DAILY 02/13/21 Unk nown History tablet,extended release 24 hr cephalexin 500 mg capsule 500 mg PO TID #15 caps 02/27 Unknown Rx aspirin 81 mg capsule 81 mg PO DAILY 01/07/25 Unkn own History clopidogrel 75 mg tablet 75 mg PO DAILY 01/07/25 Unkn own History ferrous sulfate 325 mg (65 mg 325 mg PO DAILY 01/07/25 Unknown History iron) tablet (Feosol) Allergy/AdvReac Type Severity Reaction Status Date / Time propofol AdvReac Mild Low blood Verified 01/07/25 12:47 pressure Family History Father Heart disease High cholesterol Mother Heart disease Surgical History H/O aortic valve replacement history bilateral ear surgeries History of hysterectomy history skin cancer surgery Social History Smoking Status: Never smoker alcohol intake: current alcohol intake frequency: a few times a month substance use type: does not use ROS ROS Narrative General: Denies fever/chills HENT: Denies headache, denies stuffy nose, denies sore throat EYES: Denies changes in vision Resp: Gets a little bit of cough with drainage, increased shortness of breath Cardiac: Denies chest pain GI: Denies abdominal pain, denies changes in bowel, denies nausea/vomiting : Denies changes in urination Extremity: Increased swelling lower extremities up to her hips MSK: Denies weakness Neuro: Denies any numbness/tingling Heme: Denies any bleeding or bruising Skin: Denies rashes Psychiatric: No complaints voiced Vital Signs Vital Signs Vital Signs: 01/07/25 12:47 01/07/25 13:28 01/07/25 13:28 Temperature 97.7 F L Temperature Source Oral Pulse Rate 78 Respiratory Rate 16 18 Respiratory Effort Respiratory Depth Respiratory Pattern Blood Pressure 135/57 H Blood Pressure Mean 83 Pulse Ox 100 100 95 Oxygen Delivery Method Room Air Room Air Room Air 01/07/25 13:31 01/07/25 13:47 01/07/25 14:00 Temperature Temperature Source Pulse Rate 81 81 Respiratory Rate 17 16 Respiratory Effort Normal Short of Breath Respiratory Depth Normal Respiratory Pattern Tachypnea Blood Pressure 148/61 H 148/61 H Blood Pressure Mean 90 90 Pulse Ox 100 100 Oxygen Delivery Method Room Air Room Air Room Air 01/07/25 15:23 01/07/25 16:03 01/07/25 16:28 Temperature 97.7 F L Temperature Source Pulse Rate 75 80 75 Respiratory Rate 13 19 H 19 H Respiratory Effort Respiratory Depth Respiratory Pattern Blood Pressure 146/67 H 158/56 H Blood Pressure Mean 93 90 Pulse Ox 100 100 100 Oxygen Delivery Method Room Air Room Air Weight Weight: 70.488 kg Body Mass Index (BMI) 27.5 Physical Exam Narrative General: Alert, oriented HEENT: Atraumatic, normocephalic Eyes: Anicteric, normal conjunctiva, extraocular movements grossly intact Neck: Supple Respiratory: Crackles at the bases bilaterally, patient just got back from ambulating to bathroom and is tachypneic with increased work of breathing Cardiovascular: Irregularly irregular GI: Soft, nontender, nondistended Extremities: 1+ edema all the way up to hips Musculoskeletal: Moving all extremities Neuro: No overt focal neurological deficits Skin: No rashes appreciated Psych: Cooperative Results Lab / Micro Data 01/07/25 13:00 01/07/25 13:00 Labs: Laboratory Results - last 24 hr 01/07/25 13:00: WBC 6.3, RBC 3.29 L, Hgb 9.4 L, Hct 29.6 L, MCV 90.0, MCH 28.6, MCHC 31.8 L, RDW Std Deviation 65.6 H, RDW Coeff of Yonis 19.9 H, Plt Count 165, MPV 9.6, Immature Gran % (Auto) 0.300, Neut % (Auto) 59.8, Lymph % (Auto) 24.2, Barber % (Auto) 12.9 H, Eos % (Auto) 1.8, Baso % (Auto) 1.0, Absolute Neuts (auto) 3.8, Absolute Lymphs (auto) 1.52, Nucleated RBC % 0, Anisocytosis 1+, Sodium 129 L, Potassium 4.2, Chloride 91 L, Carbon Dioxide 23.9, Anion Gap 15, BUN 47 H, C reatinine 1.77 H, Estim Creat Clear Calc 24.26 L, Est GFR (MDRD) Non-Af 29 L, B UN/Creatinine Ratio 26.4 H, Glucose 194 H, Calcium 8.8, Troponin T High Sens 71 H*, [place] [address] H 01/07/25 14:54: Troponin T Hi Sens 2 Hr 68 H* Imaging Radiology Impression Chest X-Ray 01/07/25 13:19 IMPRESSION: Findings consistent with mild congestive heart failure. Reading Location: [id number] Assessment & Plan Assessment/Plan (1) CHF exacerbation: QUALIFIERS: Heart failure type: unspecified Qualified Code(s): I 50.9 - Heart failure, unspecified PLAN: Plan #Acute exacerbation of chronic heart failure of unclear subtype -Admit to telemetry -proBNP 10,409 -CXR suggestive of fluid overload -Continue IV lasix -Last echo for 5 years ago -Repeat echo ordered -Daily weights, I's and O's -Fluid restriction, heart healthy diet # Hyponatremia -Sodium of 129, last value several years ago was slightly low at 132 -Suspect this may be due to fluid overload -Will be diuresing as above # Elevated troponin -Initial troponin 71 with repeat of 68 -Suspect this is all secondary to patient's fluid overload -Patient to be monitored on telemetry and echo as above # CKD stage III b - No recent labs in our system but creatinine of 1.77 today is similar to several years ago when her creatinine was 1.65 suspect this is chronic -Avoid nephrotoxic agents -Daily BMPs #Type 2 diabetes mellitus -Glucose checks and sliding scale insulin #Hx SMA occlusion - Back in September, hospitalized for 24 days -Noted - Continue antiplatelet agents once med rec updated/home meds confirmed #Hx afib s/p watchman/AV replacement/pace maker - No longer on anticoagulation -Continue beta-yissel #DVT ppx: Heparin subcu Radha Heller MD Charges/Coding Visit Charges Inpatient E&M: 14801 Init Hosp L2
--- OUTSIDE RECORDS SUMMARY | 2025-01-07 16:51 | XMS RPT_ITS | CCD ---
Author Organization [facility] Care Team Providers Care Supervisor [employer] Name Role Phone Cruz Le Primary Care [...] Burdick MD Unavailable Yin Agustin MD Unavailable [phone] Carla Burdick MD Unavailable Doreen Le PA-C Primary Care Provider Carla Burdick MD Unavailable Sonny Lund MD Unavailable Doreen Le PA-C Primary Care Provider No, Referral Unavailable Unavailable Yin Agustin MD Unavailable Carla Burdick MD Unavailable Sonny Lund MD Unavailable Sonny Lund MD Unavailable No, Referral Unavailable Unavailable Felix Joseph MD Yin Unavailable Carla Burdick MD Unavailable Doreen Le PA-C Primary Care Provider Doreen LE Referring Unavailable Doreen LE Primary Care Unavailable Doreen LE Primary Care Unavailable Keats, Mars Referring Unavailable Keats, Mars Primary Care Unavailable Bi Perez Attending Unavailable Keats, Mars Primary Care Unavailable Dominguez Gonzales Attending Unavailable Carla Burdick MD Unavailable Sonny Lund MD Unavailable Rey HAMLIN, Dianne Taylor Primary Care Provider Unavailable Haagen THERAPEUTIC DIETITIAN.MANPOWER DEVELOPMENT SPECIALIST MANAGER, Deysi Unavailable Suppan THERAPEUTIC DIETITIAN.MANPOWER DEVELOPMENT SPECIALIST MANAGER, Sandra A Unavailable [phone] Sonny Lund MD Unavailable Haagen THERAPEUTIC DIETITIAN.MANPOWER DEVELOPMENT SPECIALIST MANAGER, Deysi Primary Care Provider Sonny Lund MD [...] Primary Care Unavailable CARLA BURDICK Attending Unavailable [facility] DEYSI [facility] Unavailable CARLA BURDICK Referring Unavailable [facility] Unavailable DIANNE LE Primary Care Unavailable MELIDA KOO Referring Unavailable SHAYE DOMINGO Attending Unavailable [facility] Unavailable SHAYE DOMINGO Referring Unavailable [facility] Unavailable Allergies Allergy Classification Reported Allergen(s) Allergy Type Date of Onset Reaction(s) Facility (2 sources) metFORMIN Drug Allergy 4 Diarrhea [facility] (20 sources) Protamines; 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: [PROTAMINE] Drug Allergy 2 Anaphylaxis [facility] Work Phone: (20 sources) Propofol; 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: [PROPOFOL] Drug Allergy 3 Other: See Comments [facility] (1 source) Propofol Drug Allergy 4 [facility] Repository Medications Current Medications Medication Drug [...] 5 days. Take 2 tablets by mo [facility] once daily. lisinopril 5 mg oral tablet [...] TH EVERY DAY Take 1 tablet by aklyan th once daily. Take 2 tablets by [...] Drug Class(es) Dates Sig (Normalized) Sig (Original) [id number] 60 actuat albuterol 0.09 mg/actuat metered dose [...] Comment on above: Take 1 tablet by [facility] twice daily. Take 1 tablet by [facility] once daily. Hold if systolic blood pressure [...] Comment on above: Take 1 capsule by [facility] once daily. iv contrast (will be provided [...] on above: Take 1 capsule by mo [facility] once daily. predniSONE 20 mg oral tablet [...] on above: Take 1 capsule by mo [facility] once daily. 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; 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: [FCI (current) use of antithrombotics/antip latelets] Onset: 03-21-2022 03-21-2022 Episodic Other aftercare (20 sources) Acquired platelet function disorder; 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: [remote computer terminal operator (current) use of antithrombotics/antip latelets] Onset: 03-21-2022 2 Episodic Other aftercare (20 sources) Long-term current use of drug therapy; 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: [Other skilled nursing (current) drug therapy] Onset: 10-20-2016 Resolved: 09-12-2021 [...] Test Name Value Interpretation Reference Range Facility [facility] 01-01-2025 CNOV Office Visit (JOHNNY ) -------- BERTA SANCHES ([id number]) 1945 F [facility] Date Time Provider Department 01/01/25 11:00 AM CARLA BURDICK During your visit today, we recorded the following information about you: Pulse Respiration Blood pressure Weight 84/minute 18/minute 156/60 67.4 kg Height 1.575 m Carla Burdick MD 01/01/2025 12:27 PM [facility] SECTION OF REGIONAL CARDIOLOGY Cardiology ([facility]) [address] [facility] [id number] OUTPATIENT VISIT DATE 01/01/2025 PRIMARY CARE PHYSICIAN: Doreen Le [address] [place] [address] HISTORY OF PRESENT ILLNESS: Ms. Sanches is a 79 year old woman with a history of remote aortic valve replacement with homograft in 1996 and possible repair of the ascending aorta, chronic diastolic congestive heart failure, hypertension, dyslipidemia, atrial fibrillation with history of pulmonary vein isolation procedures, pacemaker placement and watchman procedure who presents for follow-up. Patient was admitted to [facility]. She was discharged after 2 days. 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 Lua PACEMAKER 10/2019 PART. HYSTERECTOMY W/WO RMVL OVARIES/TUBES 1973 h/o cervical cancer ovaries remain PAST SURGICAL HISTORY OF 1996 Aortic valve repair, Dr. Apodaca PAST SURGICAL HISTORY OF 2001 [address] Beltrán, [facility] PAST SURGICAL HISTORY OF 2015 clipping [...] and 1 (more content not included)... Normal [facility] Connie 12-26-2024 [facility] Telephone ([facility]) -------- BERTA SANCHES ([id number]) 1945 F [place] Date Time Provider Department 12/26/24 ALBIN GU [facility] During your visit today, we recorded the following information about you: Albin Gu APRN.MANPOWER DEVELOPMENT SPECIALIST MANAGER 12/26/2024 9:45 AM Signed Patient called to [...] questions answered at this time. Albin Gu APRN.MANPOWER DEVELOPMENT SPECIALIST MANAGER Allergies As of Date: 12/26/2024 Noted Allergy [...] 02/26/2014 03/21/2022 Intracranial aneurysm [I67.1] 08/30/2015 10/05/2022 [facility] current use of antiarrhythmic medical*10/20/2016 09/12/2021 Prosthetic [...] anemia [D50.9] more content not included)... [facility] Office Visit ([facility] ) -------- BERTA SANCHES ([id number]) 1945 F [place] Date Time Provider Department 12/20/24 8:45 AM LARS SILVA During your visit today, we recorded the following information about you: Pulse Blood pressure Weight 77/minute 154/75 67.4 kg Lars Silva, DO 12/20/2024 5:56 PM Signed [facility] [place] DEPARTMENT OF VASCULAR SURGERY OUTPATIENT VISIT DATE December 20, 2024 OUTPATIENT VISIT TYPE ESTABLISHED SERVICE DATE: 12/20/2024 SERVICE TIME: 8:53 AM PRIMARY CARE PHYSICIAN: Deysi Nicholson APRN.MANPOWER DEVELOPMENT SPECIALIST MANAGER HISTORY OF PRESENT ILLNESS: Ms. Sanches is a 79 year old female who presents today for a vascular surgery follow-up visit follow up on mesenteric duplex. She recently increased her lasix at the CHF clinic. She had a stent placed in [place] in September. She was recently admitted to [facility] for anemia. She has noted increased swelling. 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 Lua PACEMAKER 10/2019 PART. HYSTERECTOMY W/WO RMVL OVARIES/TUBES 1973 h/o cervical cancer ovaries remain PAST SURGICAL HISTORY OF 1996 Aortic valve repair, Dr. Apodaca PAST SURGICAL HISTORY OF 2001 [address] Beltrán, [facility] PAST SURGICAL HISTORY OF 2015 clipping [...] sugar (more content not included)... Normal [facility] MESENTERIC ARTERY CMPLT V LABon 12-20-2024 US MESENTERIC ARTERY CMPLT VAS LAB Non-Invasive Vascular Laboratory [place] Vascular Surgery Office Renal or Mesenteric Duplex [...] Unable to visualize. Technologist: Chantell Ferrari RVT, [facility] Ordering physician: LARS SILVA Interpreting physician: Terrance Oseguera MD, BIAJN Final CC [facility] Image : [id number] See Link below for Image Normal [facility] CNOVon 12-19-2024 CN [facility] -------- BERTA SANCHES ([id number]) 1945 F [facility] Date Time Provider Department 12/19/24 11:00 AM [facility]BIN GU [facility] During your visit today, we recorded the following information about you: Pulse Blood pressure Weight 79/minute 157/54 65.3 kg Albin Gu APRN.MANPOWER DEVELOPMENT SPECIALIST MANAGER 12/19/2024 11:41 AM Addendum 40 mg intravenous [...] or concern, you can call me at [phone]. Albin Gu APRN.CNP 12/19/2024 11:45 AM Signed Heart and Vascular [place] [facility] OUTPATIENT VISIT DATE [...] and was worried about traveling home to [place] in a few days. Discussed with her taking lasix as it was prescribed. As her spironolactone was stopped, did advise patient restart this at 25 mg once a day for four days only. She was instructed to call office in a week to review symptoms. On 10/15, patient presented back to [facility] for gastrointestinal bleed. She had a colonoscopy [...] and entresto. The patient wished to leave [place] so she could return to [place]. Cardiology and Pulmonary agreed with discharge. Patient [...] Hospital disch (more content not included)... Normal [facility] 12-13-2024 [facility] Telephone ([facility]) -------- BERTA SANCHES ([id number]) 1945 F [facility] Date Time Provider Department 12/13/24 DEYSI NICHOLSON [facility] During your visit today, we recorded the following information about you: Alex Gonzalez 12/13/2024 9:36 AM Signed Transitional Care Management (TCM) [facility] Provider Action / FYI: N/A SUMMARY: Outreach type: INITIAL OUTREACH Discharge Network Status: In-Network [facility]charge [facility] Report Patient discharged from [facility] on December 12. Admitted for Acute on chronic diastolic CHF (congestive heart failure) ([facility]). Contact made with patient: No - next [...] 02/26/2014 03/21/2022 Intracranial aneurysm [I67.1] 08/30/2015 10/05/2022 [facility] current use of antiarrhythmic medical*10/20/2016 09/12/2021 Prosthetic [...] [C64.9] 04 (more content not included)... Normal [facility] Basic metabolic 2000 panelon 12-12-2024 Anion gap [Moles/Vol] 12 mmol/L Normal 8-15 [facility] Comment on above: Order Comment: Speci men Type: BLOOD SPECIMEN Ordering Facility: [facility] Address: [address] [place] [address] Performed By: #### 1 9123-9, 57558-3 #### [facility] CLIA [id number] [address] [place] [address] [place] Calcium [Mass/Vol] 8.8 mg/dL Normal 8.5-10.2 [facility] Comment on above: Order Comment: Speci men Type: BLOOD SPECIMEN Ordering Facility: [facility] Address: [address] [place] [address] Performed By: #### 1 9123-9, 18749-9 #### [facility] CLIA [id number] [address] [place] [address] [place] Chloride [Moles/Vol] 96 mmol/L Low 98-107 [facility] Comment on above: Order Comment: Speci men Type: BLOOD SPECIMEN Ordering Facility: [facility] Address: [address] [place] [address] Performed By: #### 1 91239, 80961-1 #### [facility] CLIA [id number] [address] STATES OF [facility] CO2 [Moles/Vol] 26 mmol/L Normal 22-30 [facility] Comment on above: Order Comment: Speci men Type: BLOOD SPECIMEN Ordering Facility: [facility] Address: [address] [place] [address] Performed By: #### 1 9123-9, 25850-7 #### [facility] CLIA [id number] [address] [place] Creatinine [Mass/Vol] 1.69 mg/dL High 0.58-0.96 [facility] Comment on above: Order Comment: Speci men Type: BLOOD SPECIMEN Ordering Facility: [facility] Address: [address] [place] [address] Performed By: #### 1 91239, 39905-5 #### [facility] CLIA [id number] [address] Creatinine and Glomerular filtration rate.predicted panel (S/P/Bld) 31 mL/min/1.73m??? Low >=60 [facility] Comment on above: Order Comment: Speci men Type: BLOOD SPECIMEN Ordering Facility: [facility] Address: [address] [place] [address] Result Comment: Mira mated Glomerular Filtration Rate [...] actual GFR. Performed By: #### 1 9123-9, 02108-3 #### [facility] CLIA [id number] [address] [place] [address] [place] Glucose [Mass/Vol] 170 mg/dL High [address] [place] [address] Comment on above: Order Comment: Annie ricci Type: BLOOD SPECIMEN Ordering Facility: [facility] Address: [address] [place] [address] Result Comment: The [place] Diabetes Association (ADA) provides guidance for cutoff [...] Standards of Medical Care in Diabetes 2016, [place] [employer]. Diabetes Care. 2016.39(Suppl 1). Performed By: #### 1 9123-9, 15827-9 #### [facility] CLIA [id number] [address] [place] [address] [place] Potassium [Moles/Vol] 4.1 mmol/L Normal 3.7-5.1 [facility] Comment on above: Order Comment: Annie ricci Type: BLOOD SPECIMEN Ordering Facility: [facility] Address: [address] [place] [id number] Performed By: #### 1 9123-9, 62117-0 #### [facility] CLIA [id number] [address] [place] Sodium [Moles/Vol] 134 mmol/L Low 136-144 [facility] Comment on above: Order Comment: Speci men Type: BLOOD SPECIMEN Ordering Facility: [facility] Address: [address] [place] [address] Performed By: #### 1 9123-9, 89432-0 #### [facility] CLIA [id number] [address] [place] [address] [place] Urea nitrogen [Mass/Vol] 47 mg/dL High 7-21 [facility] Comment on above: Order Comment: Speci men Type: BLOOD SPECIMEN Ordering Facility: [facility] Address: [address] [place] [address] Performed By: #### 1 9123-9, 37475-3 #### [facility] CLIA [id number] [address] [place] CBC panel Auto (Bld)on 12-12 Erythrocyte distribution width (RBC) [Ratio] 15.9 % High 11.5-15.0 [facility] Comment on above: Order Comment: Speci men Type: BLOOD SPECIMEN Ordering Facility: [facility] Address: [address] [place] [address] Performed By: #### 5 8410-2 #### [facility] CLIA [id number] [address] [place] Hematocrit (Bld) [Volume fraction] 25.0 % Low 36.0-46.0 [facility] Comment on above: Order Comment: Speci men Type: BLOOD SPECIMEN Ordering Facility: [facility] Address: [address] [place] [address] Performed By: #### 5 8410-2 #### [facility] CLIA [id number] [address] [place] Hemoglobin (Bld) [Mass/Vol] 8.0 g/dL Low 11.5-15.5 [facility] Comment on above: Order Comment: Speci men Type: BLOOD SPECIMEN Ordering Facility: [facility] Address: [address] [place] [address] Performed By: #### 5 8410-2 #### [facility] CLIA [id number] [address] MCH (RBC) [Entitic mass] 28.6 pg Normal 26.0-34.0 [facility] Comment on above: Order Comment: Speci men Type: BLOOD SPECIMEN Ordering Facility: [facility] Address: [address] [place] [address] Performed By: #### 5 8410-2 #### [facility] CLIA [id number] [address] MCHC (RBC) [Mass/Vol] 32.0 g/dL Normal 30.5-36.0 [facility] Comment on above: Order Comment: Speci men Type: BLOOD SPECIMEN Ordering Facility: [facility] Address: [address] [place] [address] Performed By: #### 5 8410-2 #### [facility] CLIA [id number] [address] MCV (RBC) [Entitic vol] 89.3 fL Normal 80.0-100.0 [facility] Comment on above: Order Comment: Speci men Type: BLOOD SPECIMEN Ordering Facility: [facility] Address: [address] [place] [address] Performed By: #### 5 8410-2 #### [facility] CLIA [id number] [address] Nucleated RBC (Bld) [#/Vol] 10*3/uL Normal <0.01 [facility] Comment on above: Order Comment: Speci men Type: BLOOD SPECIMEN Ordering Facility: [facility] Address: [address] [place] [address] Performed By: #### 5 8410-2 #### [facility] CLIA [id number] [address] Platelet mean volume (Bld) [Entitic vol] 9.9 fL Normal 9.0-12.7 [facility] Comment on above: Order Comment: Speci men Type: BLOOD SPECIMEN Ordering Facility: [facility] Address: [address] [place] [address] Performed By: #### 5 8410-2 #### [facility] CLIA [id number] [address] Platelets (Bld) [#/Vol] 148 10*3/uL Low 150-400 [facility] Comment on above: Order Comment: Annie ricci Type: BLOOD SPECIMEN Ordering Facility: [facility] Address: [address] [place] [address] Performed By: #### 5 8410-2 #### [facility] CLIA [id number] [address] RBC (Bld) [#/Vol] 2.80 10*6/uL Low 3.90-5.20 [facility] Comment on above: Order Comment: Annie ricci Type: BLOOD SPECIMEN Ordering Facility: [facility] Address: [address] [place] [address] Performed By: #### 5 8410-2 #### [facility] CLIA [id number] [address] WBC (Bld) [#/Vol] 9.29 10*3/uL Normal 3.70-11.00 [facility] Comment on above: Order Comment: Annie ricci Type: BLOOD SPECIMEN Ordering Facility: [facility] Address: [address] [place] [address] Performed By: #### 5 8410-2 #### [facility] CLIA [id number] [address] CNDSon 12-12-2024 CNDS HNO ID: [id number] Author: JUAN DIEGO BYRD MD Service: Hospital [...] You also have anemia related to taking skilled nursing blood thinners and you got better with iron. 1. Take a higher dose of torsemide and follow up with a bricklayer and our CHF clinic to guide your [...] Surgery placed. 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 Patient [...] results. FOLLOW-UP APPOINTMENTS ALREADY SCHEDULED WITH A [facility] PROVIDER: Future Appointments Date Time Provider Department Center 12/21/2024 9:00 AM Albin Gu, THERAPEUTIC DIETITIAN.[facility] 01/01/2025 11:00 AM Carla Burdick MD CARD[facility] [place] 01/10/2025 1:00 PM Desyi Nicholson, THERAPEUTIC DIETITIAN.[facility] 02/26/2025 2:20 PM Carla Burdick MD CARDWS [...] how you (more content not included)... Normal [facility] CONSULT PROGon 12-12-2024 CONSULT PROG HNO ID: [id number] Author: BETSY HALL MD Service: Nephrology Author [...] urine creatinine (more content not included)... Normal [facility] Magnesium [Mass/Vol] 2.0 mg/dL Normal 1.7-2.3 [facility] Comment on above: Order Comment: Annie ricci Type: BLOOD SPECIMEN Ordering Facility: [facility] Address: [address] [place] [address] Performed By: #### 1 9123-9, 27628-2 #### [facility] CLIA [id number] [address] [place] [address] [place] ALBUMIN/CREATININE RATIO, UR INEon 12-11-2024 Albumin DL <= 20 mg/L (U) [Mass/Vol] 23.5 mg/L Normal [facility] Comment on above: Order Comment: Annie ricci Type: BLOOD SPECIMEN Ordering Facility: [facility] Address: [address] [place] [address] Performed By: #### 2 132-9, 2284-8 #### [facility] CLIA [id number] [address] [place] [address] [place] Albumin/Creatinine (U) [Mass ratio] 76 mg/g High <30 [facility] Comment on above: Order Comment: Speci men Type: BLOOD SPECIMEN Ordering Facility: [facility] Address: [address] [place], [place] [id number] Result Comment: Adul t Male and Female Nephrotic Criteria: <30 mg/g is considered normal to mildly increased 30-300 mg/g is considered moderately increased >300 mg/g is considered severely increased KDIGO. (2013). KDIGO 2012 Clinical Practice Guideline for the Evaluation and Management of Chronic Kidney Disease. Official Journal of the International Society of Nephrology, 3(1), 1-150. Performed By: #### 2 132-9, 2284-8 #### [facility] CLIA [id number] [address] ALLIED HEALTHon 12-11-2024 ALLIED HEALTH HNO ID: [id number] Author: NUNU CHATMAN RDMS Service: ? Author [...] PATIENT PRESENTS WITH AN IMPLANTABLE OR ATTACHED GUEST SERVICE AGENT: N/A RADIOLOGY DEPARTMENT: Ultrasound PERIPHERAL IV DATA: Not applicable SIGNED BY: Nunu Chatman RDMS December 11, 2024 9:14 AM Normal [facility] Basic metabolic 2000 panelon 12-11-2024 Anion gap [Moles/Vol] 13 mmol/L Normal 8-15 [facility] Comment on above: Order Comment: Speci men Type: BLOOD SPECIMEN Ordering Facility: [facility] Address: [address] [place], [place] [address] Performed By: #### 2 276-4, 42125-7, 21693-6, 34677-9 #### [facility] CLIA [id number] [address] [place] [address] [place] Calcium [Mass/Vol] 8.9 mg/dL Normal 8.5-10.2 [facility] Comment on above: Order Comment: Speci men Type: BLOOD SPECIMEN Ordering Facility: [facility] Address: [address] [place] [address] Performed By: #### 2 276-4, 02324-3, 38046-4, 25245-1 #### [facility] CLIA [id number] [address] [place] [address] [place] Chloride [Moles/Vol] 93 mmol/L Low 98-107 [facility] Comment on above: Order Comment: Speci men Type: BLOOD SPECIMEN Ordering Facility: [facility] Address: [address] [place] [address] Performed By: #### 2 276-4, 94846-6, 92641-9, #### [facility] CLIA [id number] [address] [place] [address] [place] CO2 [Moles/Vol] 24 mmol/L Normal 22-30 [facility] Comment on above: Order Comment: Speci men Type: BLOOD SPECIMEN Ordering Facility: [facility] Address: [address] [place] [address] Performed By: #### 2 276-4, 31545-5, 59076-0, 95633-5 #### [facility] CLIA [id number] [address] [place] [address] [place] Creatinine [Mass/Vol] 1.70 mg/dL High 0.58-0.96 [facility] Comment on above: Order Comment: Speci men Type: BLOOD SPECIMEN Ordering Facility: [facility] Address: [address] [place] [address] Performed By: #### 2 276-4, 18658-4, 84747-3, 19582-8 #### [facility] CLIA [id number] [address] [place] [address] [place] Creatinine and Glomerular filtration rate.predicted panel (S/P/Bld) 30 mL/min/1.73m??? Low >=60 [facility] Comment on above: Order Comment: Annie ricci Type: BLOOD SPECIMEN Ordering Facility: [facility] Address: [address] [place] [address] Result Comment: Mira mated Glomerular Filtration Rate [...] actual GFR. Performed By: #### 2 276-4, 92241-6, 47302-2, 80226-0 #### [facility] CLIA [id number] [address] [place] [address] [place] Glucose [Mass/Vol] 144 mg/dL High 74-99 [facility] Comment on above: Order Comment: Annie ricci Type: BLOOD SPECIMEN Ordering Facility: [facility] Address: [address] [place] [address] Result Comment: The [place] [employer] (ADA) provides guidance for cutoff [...] Standards of Medical Care in Diabetes 2016, [place] [employer]. Diabetes Care. 2016.39(Suppl 1). Performed By: #### 2 276-4, 82746-7, 13489-0, 58329-5 #### [facility] CLIA [id number] [address] [place] [address] [place] Potassium [Moles/Vol] 3.6 mmol/L Low 3.7-5.1 [facility] Comment on above: Order Comment: Speci men Type: BLOOD SPECIMEN Ordering Facility: [facility] Address: [address] [place] [address] Performed By: #### 2 276-4, 36853-2, 10464-4, 79512-5 #### [facility] CLIA [id number] [address] Sodium [Moles/Vol] 130 mmol/L Low 136-144 [facility] Comment on above: Order Comment: Speci men Type: BLOOD SPECIMEN Ordering Facility: [facility] Address: [address] [place] [address] Performed By: #### 2 276-4, 19766-1, 13706-5, 67011-2 #### [facility] CLIA [id number] [address] [place] Urea nitrogen [Mass/Vol] 54 mg/dL High 7-21 [facility] Comment on above: Order Comment: Speci men Type: BLOOD SPECIMEN Ordering Facility: [facility] Address: [address] [place] [address] Performed By: #### 2 276-4, 50305-3, 70319-0, 22784-3 #### [facility] CLIA [id number] [address] [place] CBC panel Auto (Bld)on 12-11 Erythrocyte distribution width (RBC) [Ratio] 16.1 % High 11.5-15.0 [facility] Comment on above: Order Comment: Speci men Type: BLOOD SPECIMEN Ordering Facility: [facility] Address: [address] [place] [address] Performed By: #### 2 132-9, 8 #### [facility] CLIA [id number] [address] Hematocrit (Bld) [Volume fraction] 23.8 % Low 36.0-46.0 [facility] Comment on above: Order Comment: Speci men Type: BLOOD SPECIMEN Ordering Facility: [facility] Address: [address] [place] [address] Performed By: #### 2 132-9, 2283-8 #### [facility] CLIA [id number] [address] Hemoglobin (Bld) [Mass/Vol] 7.6 g/dL Low 11.5-15.5 [facility] Comment on above: Order Comment: Speci men Type: BLOOD SPECIMEN Ordering Facility: [facility] Address: [address] [place] [address] Performed By: #### 2 132-9, 8 #### [facility] CLIA [id number] [address] MCH (RBC) [Entitic mass] 28.4 pg Normal 26.0-34.0 [facility] Comment on above: Order Comment: Speci men Type: BLOOD SPECIMEN Ordering Facility: [facility] Address: [address] [place] [address] Performed By: #### 2 132-9, 8 #### [facility] CLIA [id number] [address] MCHC (RBC) [Mass/Vol] 31.9 g/dL Normal 30.5-36.0 [facility] Comment on above: Order Comment: Speci men Type: BLOOD SPECIMEN Ordering Facility: [facility] Address: [address] [place] [address] Performed By: #### 2 132-9, 2284-02 #### [facility] CLIA [id number] [address] MCV (RBC) [Entitic vol] 88.8 fL Normal 80.0-100.0 [facility] Comment on above: Order Comment: Speci men Type: BLOOD SPECIMEN Ordering Facility: [facility] Address: [address] [place] [address] Performed By: #### 2 132-9, 8 #### [facility] CLIA [id number] [address] Nucleated RBC (Bld) [#/Vol] 10*3/uL Normal <0.01 [facility] Comment on above: Order Comment: Speci men Type: BLOOD SPECIMEN Ordering Facility: [facility] Address: [address] [place] [address] Performed By: #### 2 132-9, 2283-8 #### [facility] CLIA [id number] [address] [place] Platelet mean volume (Bld) [Entitic vol] 9.8 fL Normal 9.0-12.7 [facility] Comment on above: Order Comment: Speci men Type: BLOOD SPECIMEN Ordering Facility: [facility] Address: [address] [place] [address] Performed By: #### 2 132-9, 2283-8 #### [facility] CLIA [id number] [address] [place] Platelets (Bld) [#/Vol] 160 10*3/uL Normal 150-400 [facility] Comment on above: Order Comment: Speci men Type: BLOOD SPECIMEN Ordering Facility: [facility] Address: [address] [place] [address] Performed By: #### 2 132-9, 8 #### [facility] CLIA [id number] [address] [place] RBC (Bld) [#/Vol] 2.68 10*6/uL Low 3.90-5.20 [facility] Comment on above: Order Comment: Speci men Type: BLOOD SPECIMEN Ordering Facility: [facility] Address: [address] [place] [address] Performed By: #### 2 132-9, 8 #### [facility] CLIA [id number] [address] [place] [address] [place] WBC (Bld) [#/Vol] 7.37 10*3/uL Normal 3.70-11.00 [facility] Comment on above: Order Comment: Speci men Type: BLOOD SPECIMEN Ordering Facility: [facility] Address: [address] [place] [address] Performed By: #### 2 132-9, 2283-8 #### [facility] CLIA [id number] [address] [place] CNPNon 12-11-2024 CNPN Telephone (4CQ) -------- BERTA SANCHES ([id number]) 1945 F [facility] Date Time Provider Department 12/11/24 DEYSI NICHOLSON 4CQ During your visit today, we recorded the following information about you: Marilyn Cesar 12/11/2024 11:06 AM Signed Patient called to cancel hospital follow up due to re admission yesterday 12/10/2024 Sigifredo Rivera LPN 12/11/2024 11:15 AM Signed Pt re admitted to [facility]. GOPI Hill Christy, APRN.CNP 12/11/2024 1:06 PM Signed Noted. Deysi Nicholson APRN.MANPOWER DEVELOPMENT SPECIALIST MANAGER Allergies As of Date: 12/11/2024 Noted Allergy [...] 02/26/2014 03/21/2022 Intracranial aneurysm [I67.1] 08/30/2015 10/05/2022 [facility] current use of antiarrhythmic medical*10/20/2016 09/12/2021 Prosthetic [...] [J90] 09/2 (more content not included)... Normal [facility] CONSULTon 12-11-2024 CONSULT HNO ID: [id number] Author: HEMANT JIMENEZ MD Service: Gastroenterology Author Type: Physician Type: Consults Filed: 12/11/2024 15:46 Note Text: GASTROENTEROLOGY CONSULT NOTE PATIENT NAME: Berta Sanches SERVICE DATE: December 11, 2024 SERVICE TIME: 11:59 AM PRIMARY CARE PHYSICIAN: Deysi Nicholson APRN.MANPOWER DEVELOPMENT SPECIALIST MANAGER ATTENDING PHYSICIAN:Juan Diego Byrd MD REASON FOR [...] SMA stenting 09/2024 (on DAPT) in [facility] who presented on 12/10/24 for 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 Lua PACEMAKER 10/2019 PART. HYSTERECTOMY W/WO RMVL OVARIES/TUBES 1974 h/o cervical cancer ovaries remain PAST SURGICAL HISTORY OF 1996 Aortic valve repair, Dr. Apodaca PAST SURGICAL HISTORY OF 2001 [address] Beltrán, [facility] PAST SURGICAL HISTORY OF 2016 clipping [...] , 12/09/2024 t (more content not included)... [facility] CONSULT PROGon 12-11-2024 CONSULT PROG HNO ID: [id number] Author: BETSY HALL MD Service: Nephrology Author [...] p.o. twice daily -- Previous record from [place] reviewed in detail. -- Kidney ultrasound from 10/04/2024 reviewed. Significantly increased velocity in proximal left renal artery suggestive of left renal artery stenosis -- Repeat kidney ultrasound and renal artery duplex Normal [facility] Creat ?Tm Ur-mCncon 12-12-19 25 Creatinine (U) [Mass/Vol] 31.1 mg/dL Normal 20.0-300.0 [facility] Comment on above: Order Comment: Speci men Type: BLOOD SPECIMEN Ordering Facility: [facility] Address: [address] [place] [id number] Performed By: #### 2 132-9, 2284-8 #### [facility] CLIA [id number] [address] [place] [address] [place] Ferritin SerPl-mCncon 2024 Ferritin [Mass/Vol] 36.2 ng/mL Normal 14.7-205.1 [facility] Comment on above: Order Comment: Speci men Type: BLOOD SPECIMEN Ordering Facility: [facility] Address: [address] [place] [address] Performed By: #### 2 276-4, 26493-6, 99182-5, 57455-3 #### [facility] CLIA [id number] [address] [place] [address] [place] Folate SerPl-mCncon 12-12-19 Folate [Mass/Vol] 11.3 ng/mL Normal >4.7 [facility] Comment on above: Order Comment: Speci men Type: BLOOD SPECIMEN Ordering Facility: [facility] Address: [address] [place] [address] Performed By: #### 2 132-9, 2283-8 #### [facility] CLIA [id number] [address] [place] [address] [place] Iron and Iron binding capaci ty panelon 12-11-2024 Iron [Mass/Vol] 17 ug/dL Low 41-186 [facility] Comment on above: Order Comment: Speci men Type: BLOOD SPECIMEN Ordering Facility: [facility] Address: [address] [place] [address] Performed By: #### 2 132-9, 2283-8 #### [facility] CLIA [id number] [address] [place] [address] [place] Iron binding capacity [Mass/Vol] 416 ug/dL High 232-386 [facility] Comment on above: Order Comment: Speci men Type: BLOOD SPECIMEN Ordering Facility: [facility] Address: [address] [place] [address] Performed By: #### 2 132-9, 228-8 #### [facility] CLIA [id number] [address] [place] [address] [place] Iron/TIBC [Molar ratio] 4.1 % Low 15.0-57.0 [facility] Comment on above: Order Comment: Speci men Type: BLOOD SPECIMEN Ordering Facility: [facility] Address: [address] [place] [address] Performed By: #### 2 132-9, 2284-8 #### [facility] CLIA [id number] [address] [place] [id number] [facility] Magnesium SerPl-mCncon 12-11 Magnesium [Mass/Vol] 1.8 mg/dL Normal 1.7-2.3 [facility] Comment on above: Order Comment: Speci men Type: BLOOD SPECIMEN Ordering Facility: [facility] Address: [address] [place] [address] Performed By: #### 2 276-4, 82587-8, 24791-5, 63840-5 #### [facility] CLIA [id number] [address] NURSING PROGon 12-11-2024 NURSING PROG HNO ID: [id number] Author: BRIANNA BETANCOURT RN Service: Nursing Author Type: Registered Nurse Type: Nursing Progress Note Filed: 12/11/2024 15:17 Note Text: PATIENT EDUCATION HEART FAILURE PATIENT NAME: Berta Sanches PATIENT LOCATION: [place] [id number] SURVIVAL SKILLS: Low Sodium Diet Weight Monitoring [...] Cardiology Electronically Signed By: Brianna Betancourt Normal [facility] OCCULT BLD EXAM-DIAGon 12-11 OCCULT BLD EXAM-DIAG Positive Abnormal [facility] Comment on above: Performed By: #### 1 9123-9, 43678-4 #### [facility] CLIA [id number] [address] [place] [address] [place] Prot/Creat Uron 12-11-2024 Protein/Creatinine (U) [Mass ratio] 0.26 mg/mg High <0.15 [facility] Comment on above: Order Comment: Annie ricci Type: BLOOD SPECIMEN Ordering Facility: [facility] Address: [address] [place] [address] Result Comment: Adul t Proteinuria Categories: <0.15 mg/mg is considered normal to mildly increased 0.15 - 0.50 mg/mg is considered moderately increased >0.50 mg/mg is considered severely increased KDIGO. (2013). KDIGO 2012 Clinical Practice Guideline for the Evaluation and Management of Chronic Kidney Disease. Official Journal of the International Society of Nephrology, 3(1), 1-150. Performed By: #### 2 132-9, 2284-8 #### [facility] CLIA [id number] [address] [place] [address] [place] Protein/Creatinine (U) [Mass ratio]on 12-11-2024 Protein (U) [Mass/Vol] 8 mg/dL Normal 0-20 [facility] Comment on above: Order Comment: Annie ricci Type: BLOOD SPECIMEN Ordering Facility: [facility] Address: [address] [place] [address] Performed By: #### 2 132-9, 2284-8 #### [facility] CLIA [id number] [address] [place] [address] [place] Sodium ?Tm Ur-sCncon 025 Sodium Unsp time (U) [Moles/Vol] 67 mmol/L Normal 14-216 [facility] Comment on above: Order Comment: Speci men Type: BLOOD SPECIMEN Ordering Facility: [facility] Address: [address] [place] [address] Performed By: #### 2 132-9, 2284-8 #### [facility] CLIA [id number] [address] [place] [address] [place] UREA NITROGEN, RANDOM URINEo n 12-11-2024 UREA NITROGEN,UR,RAN 400 mg/dL Normal 140-1500 [facility] Comment on above: Order Comment: Speci men Type: BLOOD SPECIMEN Ordering Facility: [facility] Address: [address] [place] [address] Performed By: #### 2 132-9, 2284-8 #### [facility] CLIA [id number] [address] [place] [address] [facility] OF [place] URINALYSIS, REFLEX MICROSCOP ICon 12-11-2024 Bilirubin Ql (U) Negative Normal Negative [facility] Comment on above: Order Comment: Speci men Type: URINE SPECIMEN Ordering Facility: [facility] Address: [address] [place] [address] Performed By: #### L [id number] #### [facility] CLIA [id number] [address] [place] Clarity (Unsp spec) Clear Normal Clear [facility] Comment on above: Order Comment: Speci men Type: URINE SPECIMEN Ordering Facility: [facility] Address: [address] [place] [address] Performed By: #### L [id number] #### [facility] CLIA [id number] [address] [place] Color (U) Yellow Normal Yellow [facility] Comment on above: Order Comment: Speci men Type: URINE SPECIMEN Ordering Facility: [facility] Address: [address] [place] [address] Performed By: #### L [id number] #### [facility] CLIA [id number] [address] Glucose Test strip (U) [Mass/Vol] Negative Normal Negative [facility] Comment on above: Order Comment: Speci men Type: URINE SPECIMEN Ordering Facility: [facility] Address: [address] [place] [address] Performed By: #### L [id number] #### [facility] CLIA [id number] 1000 [place], [place] [id number] [place] [address] OF [place] Hemoglobin Ql (U) Negative Normal Negative [facility] Comment on above: Order Comment: Speci men Type: URINE SPECIMEN Ordering Facility: [facility] Address: [address] [place] [address] Performed By: #### L [id number] #### [facility] CLIA [id number] [address] [place] Ketones Ql (U) Negative Normal Negative [facility] Comment on above: Order Comment: Speci men Type: URINE SPECIMEN Ordering Facility: [facility] Address: [address] [place] [address] Performed By: #### L [id number] #### [facility] CLIA [id number] [address] Leukocyte esterase Test strip Ql (U) Negative Normal Negative [facility] Comment on above: Order Comment: Speci men Type: URINE SPECIMEN Ordering Facility: [facility] Address: [address] [place] [address] Performed By: #### L [id number] #### [facility] CLIA [id number] [address] [place] Nitrite Ql (U) Negative Normal Negative [facility] Comment on above: Order Comment: Speci men Type: URINE SPECIMEN Ordering Facility: [facility] Address: [address] [place] [address] Performed By: #### L [id number] #### [facility] CLIA [id number] [address] [place] pH (U) 6.5 [pH] Normal 5.0-8.0 [facility] Comment on above: Order Comment: Speci men Type: URINE SPECIMEN Ordering Facility: [facility] Address: [address] [place] [address] Performed By: #### L [id number] #### [facility] CLIA [id number] [address] Protein (U) [Mass/Vol] Negative Normal Negative [facility] Comment on above: Order Comment: Speci men Type: URINE SPECIMEN Ordering Facility: [facility] Address: [address] [place] [address] Performed By: #### L [id number] #### [facility] CLIA [id number] [address] Specific gravity (U) [Rel density] 1.010 Normal 1.005-1.030 [facility] Comment on above: Order Comment: Speci men Type: URINE SPECIMEN Ordering Facility: [facility] Address: [address] [place] [address] Performed By: #### L [id number] #### [facility] CLIA [id number] [address] Urobilinogen Ql (U) 0.2 EU/dL Normal 0.2-1.0 EU/dL [facility] Comment on above: Order Comment: Speci men Type: URINE SPECIMEN Ordering Facility: [facility] Address: [address] [place] [address] Performed By: #### L [id number] #### [facility] CLIA [id number] [address] STATES [place] US RENAL ARTERY/VEINon [...] LEFT: 60-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 Machine Tool Rebuilder: JAMES Transcribe Date/Time: Dec 11 2024 11:31A Dictated by : ANNETTA ALLEN DO This examination was interpreted and the report reviewed and electronically signed by: ANNETTA ALLEN DO on Dec 11 2024 11:41AM EST [id number] Normal [facility] Vit [facility] Cobalamin (Vitamin B12) [Mass/Vol] 1393 pg/mL High 232-1245 [facility] Comment on above: Order Comment: Speci men Type: BLOOD SPECIMEN Ordering Facility: [facility] Address: [address] [place] [address] Performed By: #### 2 132-9, 2284-8 #### [facility] CLIA [id number] [address] [place] [address] [place] ALLIED HEALTHon 12-10-2024 ALLIED HEALTH HNO ID: [id number] Author: SHONDA CUNNINGHAM RT(R) Service: Radiology Author [...] PATIENT PRESENTS WITH AN IMPLANTABLE OR ATTACHED GUEST SERVICE AGENT: No RADIOLOGY DEPARTMENT: General X-ray: Exam(s) Completed: Chest X-Ray PERIPHERAL IV DATA: Not applicable SIGNED BY: RT Boyd(R) December 10, 2024 8:10 AM [facility] CBC W Auto Differential pane l (Bld)on 12-10-2024 Basophils (Bld) [#/Vol] 0.09 10*3/uL Normal <0.11 [facility] Comment on above: Order Comment: Specbecca ricci Type: BLOOD SPECIMEN Ordering Facility: [facility] Address: [address] [place] [address] Performed By: #### 5 7021-8 #### [facility] CLIA [id number] [address] [place] [address] [place] Basophils/100 WBC (Bld) 1.1 % Normal [facility] Comment on above: Order Comment: Speci keiry Type: BLOOD SPECIMEN Ordering Facility: [facility] Address: [address] [place] [address] Performed By: #### 5 7021-8 #### [facility] CLIA [id number] [address] [place] [address] [place] Differential cell count method Nom (Bld) Auto Normal [facility] Comment on above: Order Comment: Speci men Type: BLOOD SPECIMEN Ordering Facility: [facility] Address: [address] [place] [address] Performed By: #### 5 7021-8 #### [facility] CLIA [id number] [address] [place] [address] [place] Eosinophils (Bld) [#/Vol] 0.21 10*3/uL Normal <0.46 [facility] Comment on above: Order Comment: Speci men Type: BLOOD SPECIMEN Ordering Facility: [facility] Address: [address] [place] [address] Performed By: #### 5 7021-8 #### [facility] CLIA [id number] [address] [place] Eosinophils/100 WBC (Bld) 2.6 % Normal [facility] Comment on above: Order Comment: Speci men Type: BLOOD SPECIMEN Ordering Facility: [facility] Address: [address] [place] [address] Performed By: #### 5 7021-8 #### [facility] CLIA [id number] [address] [place] Erythrocyte distribution width (RBC) [Ratio] 16.2 % High 11.5-15.0 [facility] Comment on above: Order Comment: Speci men Type: BLOOD SPECIMEN Ordering Facility: [facility] Address: [address] [place] [address] Performed By: #### 5 7021-8 #### [facility] CLIA [id number] [address] [place] Hematocrit (Bld) [Volume fraction] 26.5 % Low 36.0-46.0 [facility] Comment on above: Order Comment: Speci men Type: BLOOD SPECIMEN Ordering Facility: [facility] Address: [address] [place] [address] Performed By: #### 5 7021-8 #### [facility] CLIA [id number] [address] [place] Hemoglobin (Bld) [Mass/Vol] 8.2 g/dL Low 11.5-15.5 [facility] Comment on above: Order Comment: Speci men Type: BLOOD SPECIMEN Ordering Facility: [facility] Address: [address] [place] [address] Performed By: #### 5 7021-8 #### [facility] CLIA [id number] [address] [place] Immature granulocytes (Bld) [#/Vol] 0.03 10*3/uL Normal <0.10 [facility] Comment on above: Order Comment: Speci men Type: BLOOD SPECIMEN Ordering Facility: [facility] Address: [address] [place] [address] Performed By: #### 5 7021-8 #### [facility] CLIA [id number] [address] Immature granulocytes/100 WBC (Bld) 0.4 % Normal [facility] Comment on above: Order Comment: Speci men Type: BLOOD SPECIMEN Ordering Facility: [facility] Address: [address] [place] [address] Performed By: #### 5 7021-8 #### [facility] CLIA [id number] [address] [place] Lymphocytes (Bld) [#/Vol] 2.52 10*3/uL Normal 1.00-4.00 [facility] Comment on above: Order Comment: Speci men Type: BLOOD SPECIMEN Ordering Facility: [facility] Address: [address] [place] [address] Performed By: #### 5 7021-8 #### [facility] CLIA [id number] [address] Lymphocytes/100 WBC (Bld) 30.7 % Normal [facility] Comment on above: Order Comment: Speci men Type: BLOOD SPECIMEN Ordering Facility: [facility] Address: [address] [place] [address] Performed By: #### 5 7021-8 #### [facility] CLIA [id number] [address] [place] MCH (RBC) [Entitic mass] 28.5 pg Normal 26.0-34.0 [facility] Comment on above: Order Comment: Speci men Type: BLOOD SPECIMEN Ordering Facility: [facility] Address: [address] [place] [address] Performed By: #### 5 7021-8 #### [facility] CLIA [id number] [address] [place] MCHC (RBC) [Mass/Vol] 30.9 g/dL Normal 30.5-36.0 [facility] Comment on above: Order Comment: Speci men Type: BLOOD SPECIMEN Ordering Facility: [facility] Address: [address] [place] [address] Performed By: #### 5 7021-8 #### [facility] CLIA [id number] [address] [place] [address] [place] MCV (RBC) [Entitic vol] 92.0 fL Normal 80.0-100.0 [facility] Comment on above: Order Comment: Speci men Type: BLOOD SPECIMEN Ordering Facility: [facility] Address: [address] [place] [address] Performed By: #### 5 7021-8 #### [facility] CLIA [id number] [address] [place] [address] [place] Monocytes (Bld) [#/Vol] 1.19 10*3/uL High <0.87 [facility] Comment on above: Order Comment: Speci men Type: BLOOD SPECIMEN Ordering Facility: [facility] Address: [address] [place] [address] Performed By: #### 5 7021-8 #### [facility] CLIA [id number] [address] Monocytes/100 WBC (Bld) 14.5 % Normal [facility] Comment on above: Order Comment: Speci men Type: BLOOD SPECIMEN Ordering Facility: [facility] Address: [address] [place] [address] Performed By: #### 5 7021-8 #### [facility] CLIA [id number] [address] [place] [address] [place] Neutrophils (Bld) [#/Vol] 4.17 10*3/uL Normal 1.45-7.50 [facility] Comment on above: Order Comment: Speci men Type: BLOOD SPECIMEN Ordering Facility: [facility] Address: [address] [place] [address] Performed By: #### 5 7021-8 #### [facility] CLIA [id number] [address] [place] Neutrophils/100 WBC (Bld) 50.7 % Normal [facility] Comment on above: Order Comment: Speci men Type: BLOOD SPECIMEN Ordering Facility: [facility] Address: [address] [place] [address] Performed By: #### 5 7021-8 #### [facility] CLIA [id number] [address] [place] [address] [place] Nucleated RBC (Bld) [#/Vol] 10*3/uL Normal <0.01 [facility] Comment on above: Order Comment: Speci men Type: BLOOD SPECIMEN Ordering Facility: [facility] Address: [address] [place] [address] Performed By: #### 5 7021-8 #### [facility] CLIA [id number] [address] [place] [address] [place] Nucleated RBC/100 WBC (Bld) [Ratio] 0.0 /100 WBC Normal [facility] Comment on above: Order Comment: Speci men Type: BLOOD SPECIMEN Ordering Facility: [facility] Address: [address] [place] [address] Performed By: #### 5 7021-8 #### [facility] CLIA [id number] [address] [place] [address] [place] Platelet mean volume (Bld) [Entitic vol] 10.5 fL Normal 9.0-12.7 [facility] Comment on above: Order Comment: Speci men Type: BLOOD SPECIMEN Ordering Facility: [facility] Address: [address] [place] [address] Performed By: #### 5 7021-8 #### [facility] CLIA [id number] [address] [place] [address] [place] Platelets (Bld) [#/Vol] 168 10*3/uL Normal 150-400 [facility] Comment on above: Order Comment: Annie ricci Type: BLOOD SPECIMEN Ordering Facility: [facility] Address: [address] [place] [address] Performed By: #### 5 7021-8 #### [facility] CLIA [id number] [address] OF [facility] RBC (Bld) [#/Vol] 2.88 10*6/uL Low 3.90-5.20 [facility] Comment on above: Order Comment: Annie men Type: BLOOD SPECIMEN Ordering Facility: [facility] Address: [address] [place] [address] Performed By: #### 5 7021-8 #### [facility] CLIA [id number] [address] OF [place] WBC (Bld) [#/Vol] 8.21 10*3/uL Normal 3.70-11.00 [facility] Comment on above: Order Comment: Annie ricci Type: BLOOD SPECIMEN Ordering Facility: [facility] Address: [address] [place] [address] Performed By: #### 5 7021-8 #### [facility] CLIA [id number] [address] CONSULTon 12-10-2024 CONSULT HNO ID: [id number] Author: BETSY HALL MD Service: Nephrology Author Type: Physician Type: Consults Filed: 12/10/2024 19:42 Note Text: INPATIENT INITIAL NEPHROLOGY CONSULT SERVICE DATE: 12/10/2024 SERVICE TIME: 7:30 PM REASON FOR CONSULT: MONIQUE/ CRS REQUESTING PHYSICIAN: Dr Tuttle PRIMARY CARE PHYSICIAN: Deysi Nicholson APRN.MANPOWER DEVELOPMENT SPECIALIST MANAGER CC: SOB and edema Subjective Ms. 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 Lua PACEMAKER 10/2019 PART. HYSTERECTOMY W/WO RMVL OVARIES/TUBES 1974 h/o cervical cancer ovaries remain PAST SURGICAL HISTORY OF 1996 Aortic valve repair, Dr. Apodaca PAST SURGICAL HISTORY OF 2001 [address] Beltrán, [facility] PAST SURGICAL HISTORY OF 2015 clipping [...] red win (more content not included)... Normal [facility] Comprehensive metabolic 2000 panelon 12-10-2024 Albumin [Mass/Vol] 3.8 g/dL Low 3.9-4.9 [facility] Comment on above: Order Comment: Speci men Type: URINE SPECIMEN Ordering Facility: [facility] Address: [address] [place] [address] Performed By: #### L [id number] #### [facility] CLIA [id number] [address] [place] [address] [place] ALP [Catalytic activity/Vol] 139 U/L High 34-123 [facility] Comment on above: Order Comment: Speci men Type: URINE SPECIMEN Ordering Facility: [facility] Address: [address] [place] [address] Performed By: #### L [id number] #### [facility] CLIA [id number] [address] [place] [address] [place] ALT [Catalytic activity/Vol] 12 U/L Normal 7-38 [facility] Comment on above: Order Comment: Speci men Type: URINE SPECIMEN Ordering Facility: [facility] Address: [address] [place] [address] Performed By: #### L [id number] #### [facility] CLIA [id number] [address] [place] [address] [place] Anion gap [Moles/Vol] 13 mmol/L Normal 8-15 [facility] Comment on above: Order Comment: Speci men Type: URINE SPECIMEN Ordering Facility: [facility] Address: [address] [place] [address] Performed By: #### L [id number] #### [facility] CLIA [id number] [address] [place] [address] [place] AST [Catalytic activity/Vol] 27 U/L Normal 13-35 [facility] Comment on above: Order Comment: Speci men Type: URINE SPECIMEN Ordering Facility: [facility] Address: [address] [place] [address] Performed By: #### L [id number] #### [facility] CLIA [id number] [address] [place] [address] [place] Bilirubin [Mass/Vol] 0.8 mg/dL Normal 0.2-1.3 [facility] Comment on above: Order Comment: Speci men Type: URINE SPECIMEN Ordering Facility: [facility] Address: [address] [place] [address] Performed By: #### L [id number] #### [facility] CLIA [id number] [address] [place] [address] [place] Calcium [Mass/Vol] 9.0 mg/dL Normal 8.5-10.2 [facility] Comment on above: Order Comment: Speci men Type: URINE SPECIMEN Ordering Facility: [facility] Address: [address] [place] [address] Performed By: #### L [id number] #### [facility] CLIA [id number] [address] [place] [address] [place] Chloride [Moles/Vol] 98 mmol/L Normal 98-107 [facility] Comment on above: Order Comment: Speci men Type: URINE SPECIMEN Ordering Facility: [facility] Address: [address] [place] [address] Performed By: #### L [id number] #### [facility] CLIA [id number] [address] [place] [address] [place] CO2 [Moles/Vol] 20 mmol/L Low 22-30 [facility] Comment on above: Order Comment: Speci men Type: URINE SPECIMEN Ordering Facility: [facility] Address: [address] [place] [address] Performed By: #### L [id number] #### [facility] CLIA [id number] [address] STATES OF [facility] Creatinine [Mass/Vol] 1.90 mg/dL High 0.58-0.96 [facility] Comment on above: Order Comment: Speci men Type: URINE SPECIMEN Ordering Facility: [facility] Address: [address] [place] [address] Performed By: #### L [id number] #### [facility] CLIA [id number] [address] Creatinine and Glomerular filtration rate.predicted panel (S/P/Bld) 27 mL/min/1.73m??? Low >=60 [facility] Comment on above: Order Comment: Speci men Type: URINE SPECIMEN Ordering Facility: [facility] Address: [address] [place] [address] Result Comment: Mira mated Glomerular Filtration Rate [...] reflect actual GFR. Performed By: #### L [id number] #### [facility] CLIA [id number] [address] [place] [address] [place] Glucose [Mass/Vol] 140 mg/dL High 74-99 [facility] Comment on above: Order Comment: Speci men Type: URINE SPECIMEN Ordering Facility: [facility] Address: [address] [place] [address] Result Comment: The [place] [employer] (ADA) provides guidance for cutoff [...] Standards of Medical Care in Diabetes 2016, [place] [employer]. Diabetes Care. 2016.39(Suppl 1). Performed By: #### L [id number] #### [facility] CLIA [id number] [address] [place] [address] [place] Potassium [Moles/Vol] 4.2 mmol/L Normal 3.7-5.1 [facility] Comment on above: Order Comment: Spec men Type: URINE SPECIMEN Ordering Facility: [facility] Address: [address] [place] [address] Performed By: #### L [id number] #### [facility] CLIA [id number] [address] [place] [address] [place] Protein [Mass/Vol] 7.3 g/dL Normal 6.3-8.0 [facility] Comment on above: Order Comment: Speci men Type: URINE SPECIMEN Ordering Facility: [facility] Address: [address] [place] [address] Performed By: #### L [id number] #### [facility] CLIA [id number] [address] [place] [address] [place] Sodium [Moles/Vol] 131 mmol/L Low 136-144 [facility] Comment on above: Order Comment: Speci men Type: URINE SPECIMEN Ordering Facility: [facility] Address: [address] [place] [address] Performed By: #### L [id number] #### [facility] CLIA [id number] [address] [place], [place] [address] [place] [address] [place] Urea nitrogen [Mass/Vol] 63 mg/dL High 7-21 [facility] Comment on above: Order Comment: Speci men Type: URINE SPECIMEN Ordering Facility: [facility] Address: [address] [place] [address] Performed By: #### L [id number] #### [facility] CLIA [id number] [address] OF [place] ECG COMPLETEon 12-10-2024 ECG COMPLETE Ventricular Rate : 7 9 BPM QRS Duration : 118 ms Q-T Interval : 418 ms QTC Calculation(Bazett) : 479 ms Calculated R [place] : -30 degrees Calculated T [place] : 161 degrees ATRIAL FIBRILLATION WITH PREMATURE VENTRICULAR OR ABERRANTLY CONDUCTED COMPLEXES LEFT AXIS DEVIATION LEFT VENTRICULAR HYPERTROPHY WITH QRS WIDENING ( R in aVL , [place] product ) T WAVE ABNORMALITY, CONSIDER LATERAL ISCHEMIA ABNORMAL ECG No Stemi Confirmed by ANSON MANRIQUE DO ([id number]) on 12/10/2024 3:12:25 PM NAME : BERTA SANCHES PID : [id number] : 1945 Gender : Female Race : ORD : [id number] Procedure Date : Dec 10 2024 07:55:48 Edit Date : Dec 10 2024 15:12:31 Diagnosis: ATRIAL FIBRILLATION WITH PREMATURE VENTRICULAR OR ABERRANTLY CONDUCTED COMPLEXES LEFT AXIS DEVIATION LEFT VENTRICULAR HYPERTROPHY WITH QRS WIDENING ( R in aVL , [place] product ) T WAVE ABNORMALITY, CONSIDER LATERAL ISCHEMIA ABNORMAL ECG No Stemi Confirmed by ANSON MANRIQUE DO ([id number]) on 12/10/2024 3:12:25 PM Test Reason : Chest Pain Location : 1 : ER ED Overread By : ANSON MANRIQUE DO Edited By : ANSON MANRIQUE DO Referred By : , Acquired by : [id number], Normal [facility] ED NOTEon 12-10-2024 ED NOTE HNO ID: [id number] Author: RODERICK BRYANT RN Service: ? 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 Lua PACEMAKER 10/2019 PART. HYSTERECTOMY W/WO RMVL OVARIES/TUBES 1973 h/o cervical cancer ovaries remain PAST SURGICAL HISTORY OF 1996 Aortic valve repair, Dr. Apodaca PAST SURGICAL HISTORY OF 2001 [address] Beltrán, [facility] PAST SURGICAL HISTORY OF 2015 clipping [...] Weight H (more content not included)... Normal [facility] HIGH SENSITIVITY TROPONIN T (INITIAL)on 12-10-2024 Troponin T.cardiac High sensitivity method [Mass/Vol] 72 ng/L High <[address] [place] [address] Comment on above: Order Comment: Annie ricci Type: URINE SPECIMEN Ordering Facility: [facility] Address: [address] [place] [address] Performed By: #### L [id number] #### [facility] CLIA [id number] [address] HIGH SENSITIVITY TROPONIN T (SECOND)on 12-10-2024 Troponin T.cardiac High sensitivity method [Mass/Vol] 66 ng/L High <[address] [place] [address] Comment on above: Order Comment: Annie ricci Type: BLOOD SPECIMEN Ordering Facility: [facility] Address: [address] [place] [address] Performed By: #### 2 132-9, 2284-8 #### [facility] CLIA [id number] [address] HIGH SENSITIVITY TROPONIN T (THIRD) 3 HRS AFTER INITIALon 12-10-2024 Troponin T.cardiac High sensitivity method [Mass/Vol] 63 ng/L High <[address] [place] [address] Comment on above: Order Comment: Annie ricci Type: BLOOD SPECIMEN Ordering Facility: [facility] Address: [address] [place] [address] Performed By: #### 2 132-9, 2284-8 #### [facility] CLIA [id number] [address] OF [facility] HISTORY PHYSICALon HISTORY PHYSICAL HNO ID: [id number] Author: JUAN DIEGO BYRD MD Service: Hospital Medicine Author Type: Physician Type: H&P Filed: 12/10/2024 13:50 Note Text: HISTORY AND PHYSICAL EXAMINATION PRIMARY CARE PHYSICIAN: Deysi Nicholson APRN.MANPOWER DEVELOPMENT SPECIALIST MANAGER HPI: 79 yo woman with hx of 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 Lua PACEMAKER 10/2019 PART. HYSTERECTOMY W/WO RMVL OVARIES/TUBES 1974 h/o cervical cancer ovaries remain PAST SURGICAL HISTORY OF 1996 Aortic valve repair, Dr. Apodaca PAST SURGICAL HISTORY OF 2001 [address] Beltrán, [facility] PAST SURGICAL HISTORY OF 2015 clipping [...] progressive SO (more content not included)... Normal [facility] Magnesium [facility] 12-10 Magnesium [Mass/Vol] 1.9 mg/dL Normal 1.7-2.3 [facility] Comment on above: Order Comment: Speci men Type: URINE SPECIMEN Ordering Facility: [facility] Address: [address] [place] [address] Performed By: #### L [id number] #### [facility] CLIA [id number] [address] OF [facility] NT-proBNP [facility] 12-10 Natriuretic peptide.B prohormone N-Terminal [Mass/Vol] 36359 pg/mL High <450 [facility] Comment on above: Order Comment: Speci men Type: URINE SPECIMEN Ordering Facility: [facility] Address: [address] [place] [address] Performed By: #### L [id number] #### [facility] CLIA [id number] [address] OF [place] XR CHEST 1V FRONTAL [...] the lungs. Cardiomegaly/enlargement of the cardiac silhouette. Machine Tool Rebuilder: PSCB Transcribe Date/Time: Dec 10 2024 8:28A Dictated by : KIERSTEN MONTENEGRO MD This examination was interpreted and the report reviewed and electronically signed by: KIERSTEN MONTENEGRO MD on Dec 10 2024 8:31AM EST [id number] Normal [facility] Basic metabolic 2000 panelon 12-01-2024 Anion gap [Moles/Vol] 14 mmol/L Normal 8-15 [facility] Comment on above: Order Comment: Speci keiry Type: BLOOD SPECIMEN Ordering Facility: [facility] Address: [address] [place] [address] Performed By: #### 2 4331-1 #### [facility] CLIA [id number] [address] [place] [address] [place] [facility] CLIA [id number] [address] [place] [address] [place] #### 61660-1 #### [facility] CLIA [id number] [address] [place] [address] [place] Calcium [Mass/Vol] 9.5 mg/dL Normal 8.5-10.2 [facility] Comment on above: Order Comment: Speci men Type: BLOOD SPECIMEN Ordering Facility: [facility] Address: [facility] [place] [address] Performed By: #### 2 4331-1 #### [facility] CLIA [id number] [address] [place] [address] [place] [facility] [id number] [address] [place], [place] [address] [place] #### 67058-1 #### [facility] CLIA [id number] [address] [place] [address] [place] Chloride [Moles/Vol] 97 mmol/L Low 98-107 [facility] Comment on above: Order Comment: Speci men Type: BLOOD SPECIMEN Ordering Facility: [facility] Address: [address] [place] [address] Performed By: #### 2 4331-1 #### [facility] CLIA [id number] [address] [place] [address] [place] [facility] [id number] [address] [place] [address] [place] #### 31864-2 #### [facility] CLIA [id number] [address] [place] [address] [place] CO2 [Moles/Vol] 22 mmol/L Normal 22-30 [facility] Comment on above: Order Comment: Speci men Type: BLOOD SPECIMEN Ordering Facility: [facility] Address: [address] [place] [address] Performed By: #### 2 4331-1 #### [facility] CLIA [id number] [address] [place] [address] [place] [facility] [id number] [address] [place] [address] [place] #### 17682-4 #### [facility] CLIA [id number] [address] [place] [address] [place] Creatinine [Mass/Vol] 1.79 mg/dL High 0.58-0.96 [facility] Comment on above: Order Comment: Speci men Type: BLOOD SPECIMEN Ordering Facility: [facility] Address: [address] [place] [address] Performed By: #### 2 4331-1 #### [facility] CLIA [id number] [address] [place] [address] [place] [facility] CLIA [id number] [address] [place] [address] [place] #### 65027-2 #### [facility] CLIA [id number] [address] [place] [address] [place] Creatinine and Glomerular filtration rate.predicted panel (S/P/Bld) 29 mL/min/1.73m??? Low >=60 [facility] Comment on above: Order Comment: Speci men Type: BLOOD SPECIMEN Ordering Facility: [facility] Address: [address] [place] [address] Result Comment: Mira mated Glomerular Filtration Rate [...] GFR. Performed By: #### 2 4331-1 #### [facility] CLIA [id number] [address] [place] [address] [place] [facility] [id number] [address] [place] [address] [place] #### 83682-6 #### [facility] CLIA [id number] [address] [place] [address] [place] Glucose [Mass/Vol] 151 mg/dL High 74-99 [facility] Comment on above: Order Comment: Speci men Type: BLOOD SPECIMEN Ordering Facility: [facility] Address: [address] [place] [address] Result Comment: The [place] [employer] (ADA) provides guidance for cutoff [...] Standards of Medical Care in Diabetes 2016, [place] [employer]. Diabetes Care. 2016.39(Suppl 1). Performed By: #### 2 4331-1 #### [facility] CLIA [id number] [address] [place] [address] [place] [facility] [id number] [address] [place] [address] [place] #### 34371-4 #### [facility] CLIA [id number] [address] [place] [address] [place] Potassium [Moles/Vol] 4.2 mmol/L Normal 3.7-5.1 [facility] Comment on above: Order Comment: Annie ricci Type: BLOOD SPECIMEN Ordering Facility: [facility] Address: [address] [place] [address] Performed By: #### 2 4331-1 #### [facility] CLIA [id number] [address] [place] [address] [place] [facility] [id number] [address] [place] [address] [place] #### 12063-9 #### [facility] CLIA [id number] [address] [place] [address] [place] Sodium [Moles/Vol] 133 mmol/L Low 136-144 [facility] Comment on above: Order Comment: Speci men Type: BLOOD SPECIMEN Ordering Facility: [facility] Address: [address] [place] [id number] Performed By: #### 2 4331-1 #### [facility] CLIA [id number] [address] [place] [address] [place] [facility] CLIA [id number] [address] [place] [address] [place] #### 29310-1 #### [facility] CLIA [id number] [address] [place] [address] [place] Urea nitrogen [Mass/Vol] 37 mg/dL High 7-21 [facility] Comment on above: Order Comment: Speci men Type: BLOOD SPECIMEN Ordering Facility: [facility] Address: [address] [place] [address] Performed By: #### 2 4331-1 #### [facility] CLIA [id number] [address] [place] [address] [place] [facility] [id number] [address] [place] [address] [place] #### 85457-1 #### [facility] CLIA [id number] [address] [place] [address] [place] NT-proBNP [facility] 12-01 Natriuretic peptide.B prohormone N-Terminal [Mass/Vol] 55855 pg/mL High <450 [facility] Comment on above: Order Comment: Speci men Type: BLOOD SPECIMEN Ordering Facility: [facility] Address: [facility] [place] [id number] Performed By: #### 3 3762-6 #### [facility] CLIA [id number] [address] [place] [address] [place] Basic metabolic 2000 panelon 11-20-2024 Anion gap [Moles/Vol] 19 mmol/L High 8-15 [facility] Comment on above: Order Comment: Speci men Type: BLOOD SPECIMEN Ordering Facility: [facility] Address: [address] [place], [place] [address] Performed By: #### 3 3762-6 #### [facility] CLIA [id number] [address] [place], [place] [address] [place] Calcium [Mass/Vol] 9.5 mg/dL Normal 8.5-10.2 [facility] Comment on above: Order Comment: Speci men Type: BLOOD SPECIMEN Ordering Facility: [facility] Address: [address] [place], [place] [address] Performed By: #### 3 3762-6 #### [facility] CLIA [id number] [address] [place], [place] [address] [place] Chloride [Moles/Vol] 98 mmol/L Normal 98-107 [facility] Comment on above: Order Comment: Speci men Type: BLOOD SPECIMEN Ordering Facility: [facility] Address: [address] [place], [place] [address] Performed By: #### 3 3762-6 #### [facility] CLIA [id number] [address] [place] [address] [place] CO2 [Moles/Vol] 18 mmol/L Low 22-30 [facility] Comment on above: Order Comment: Speci men Type: BLOOD SPECIMEN Ordering Facility: [facility] Address: [address] [place], [place] [address] Performed By: #### 3 3762-6 #### [facility] CLIA [id number] [address] [place], [place] [address] [place] Creatinine [Mass/Vol] 1.70 mg/dL High 0.58-0.96 [facility] Comment on above: Order Comment: Speci men Type: BLOOD SPECIMEN Ordering Facility: [facility] Address: [address] [place], [place] [address] Performed By: #### 3 3762-6 #### [facility] CLIA [id number] [address] [place] [address] [place] Creatinine and Glomerular filtration rate.predicted panel (S/P/Bld) 30 mL/min/1.73m??? Low >=60 [facility] Comment on above: Order Comment: Annie ricci Type: BLOOD SPECIMEN Ordering Facility: [facility] Address: [address] [place] [address] Result Comment: Mira mated Glomerular Filtration Rate [...] GFR. Performed By: #### 3 3762-6 #### [facility] CLIA [id number] [address] [place] [address] [place] Glucose [Mass/Vol] 150 mg/dL High 74-99 [facility] Comment on above: Order Comment: Annie ricci Type: BLOOD SPECIMEN Ordering Facility: [facility] Address: [address] [place] [address] Result Comment: The [place] Diabetes Association (ADA) provides guidance for cutoff [...] Standards of Medical Care in Diabetes 2016, [place] [employer] Association. Diabetes Care. 2016.39(Suppl 1). Performed By: #### 3 3762-6 #### [facility] CLIA [id number] [address] [place] [address] [place] Potassium [Moles/Vol] 4.6 mmol/L Normal 3.7-5.1 [facility] Comment on above: Order Comment: Speci men Type: BLOOD SPECIMEN Ordering Facility: [facility] Address: [address] [place] [address] Performed By: #### 3 3762-6 #### [facility] CLIA [id number] [address] [place] [address] [place] Sodium [Moles/Vol] 135 mmol/L Low 136-144 [facility] Comment on above: Order Comment: Speci men Type: BLOOD SPECIMEN Ordering Facility: [facility] Address: [address] [place] [address] Performed By: #### 3 3762-6 #### [facility] CLIA [id number] [address] [place] [address] [place] Urea nitrogen [Mass/Vol] 37 mg/dL High 7-21 [facility] Comment on above: Order Comment: Speci men Type: BLOOD SPECIMEN Ordering Facility: [facility] Address: [address] [place] [address] Performed By: #### 3 3762-6 #### [facility] CLIA [id number] [address] [place] [address] [place] CNOVon 11-20-2024 CNOV Office Visit (JOHNNY ) -------- BERTA SANCHES ([id number]) 1945 [facility] Date Time Provider Department 11/20/24 8:00 AM CARLA BURDICK During your visit today, we recorded the following information about you: Pulse Respiration Blood pressure Weight 84/minute 12/minute 154/62 65.2 kg Height 1.575 m Carla Burdick MD 11/20/2024 8:50 AM Signed [facility] SE[facility] REGIONAL CARDIOLOGY Cardiology ([facility]) [address] [facility] [address] OUTPATIENT VISIT DATE PRIMARY CARE PHYSICIAN: Doreen Le [address] [place] [address] HISTORY OF PRESENT ILLNESS: Ms. 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 Lua PACEMAKER 10/2019 PART. HYSTERECTOMY W/WO RMVL OVARIES/TUBES 1974 h/o cervical cancer ovaries remain PAST SURGICAL HISTORY OF 1996 Aortic valve repair, Dr. Apodaca PAST SURGICAL HISTORY OF 2001 [address] Beltrán, [facility] PAST SURGICAL HISTORY OF 2015 clipping [...] Hypotension MEDICATIONS: (more content not included)... Normal [facility] NT-proBNP [facility] 11-20 Natriuretic peptide.B prohormone N-Terminal [Mass/Vol] 25784 pg/mL High <450 [facility] Comment on above: Order Comment: Speci men Type: BLOOD SPECIMEN Ordering Facility: [facility] Address: [address] [place] [address] Performed By: #### 3 3762-6 #### [facility] CLIA [id number] [address] [place] [address] OF [facility] CNPNon 11-14-2024 CNPN Telephone (CARDWS) -------- BERTA SANCHES ([id number]) 1945 [facility] Date Time Provider Department 11/14/24 CARLA BURDICK [...] on Wednesday when I am there at [place]. 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 Normal [facility] Basic metabolic 2000 panelon 11-13-2024 Anion gap [Moles/Vol] 11 mmol/L Normal 8-15 [facility] Comment on above: Order Comment: Speci men Type: BLOOD SPECIMEN Ordering Facility: [facility] Address: [address] [place] [address] Performed By: #### 2 4331-1 #### [facility] CLIA [id number] [address] [place] [address] [place] [facility] CLIA [id number] [address] [place] [address] [place] #### 65381-7 #### [facility] CLIA [id number] [address] [place] [address] [place] Calcium [Mass/Vol] 9.3 mg/dL Normal 8.5-10.2 [facility] Comment on above: Order Comment: Speci men Type: BLOOD SPECIMEN Ordering Facility: [facility] Address: [address] [place] [address] Performed By: #### 2 4331-1 #### [facility] CLIA [id number] [address] [place] [address] [place] [facility] CLIA [id number] [address] [place] [address] [place] #### 38021-0 #### [facility] CLIA [id number] [address] [place] [address] [place] Chloride [Moles/Vol] 98 mmol/L Normal 98-107 [facility] Comment on above: Order Comment: Speci men Type: BLOOD SPECIMEN Ordering Facility: [facility] Address: [address] [place] [address] Performed By: #### 2 4331-1 #### [facility] CLIA [id number] [address] [place] [address] [place] [facility] CLIA [id number] [address] [place] [address] [place] #### 10090-0 #### [facility] CLIA [id number] [address] [place] [address] [place] CO2 [Moles/Vol] 26 mmol/L Normal 22-30 [facility] Comment on above: Order Comment: Speci men Type: BLOOD SPECIMEN Ordering Facility: [facility] Address: [address] [place] [address] Performed By: #### 2 4331-1 #### [facility] CLIA [id number] [address] [place] [address] [place] [facility] CLIA [id number] [address] [place] [address] [place] #### 42844-4 #### [facility] CLIA [id number] [address] [place] [address] [place] Creatinine [Mass/Vol] 1.82 mg/dL High 0.58-0.96 [facility] Comment on above: Order Comment: Speci men Type: BLOOD SPECIMEN Ordering Facility: [facility] Address: [address] [place] [id number] Performed By: #### 2 4331-1 #### [facility] CLIA [id number] [address] [place] [address] [place] [facility] CLIA [id number] [address] [place] [address] [place] #### 34758-3 #### [facility] CLIA [id number] [address] [place] [address] [place] Creatinine and Glomerular filtration rate.predicted panel (S/P/Bld) 28 mL/min/1.73m??? Low >=60 [facility] Comment on above: Order Comment: Annie ricci Type: BLOOD SPECIMEN Ordering Facility: [facility] Address: [address] [place] [address] Result Comment: Mira mated Glomerular Filtration Rate [...] GFR. Performed By: #### 2 4331-1 #### [facility] CLIA [id number] [address] [place] [address] [place] [facility] CLIA [id number] [address] [place] [address] [place] #### 09486-7 #### [facility] CLIA [id number] [address] [place] [address] [place] Glucose [Mass/Vol] 127 mg/dL High 74-99 [facility] Comment on above: Order Comment: Annie ricci Type: BLOOD SPECIMEN Ordering Facility: [facility] Address: [address] [place] [address] Result Comment: The [place] Diabetes Association (ADA) provides guidance for cutoff [...] Standards of Medical Care in Diabetes 2016, [place] [employer] Association. Diabetes Care. 2016.39(Suppl 1). Performed By: #### 2 4331-1 #### [facility] CLIA [id number] [facility] [place] [address] [place] [facility] CLIA [id number] [address] [place] [address] [place] #### 66299-8 #### [facility] CLIA [id number] [address] [place] [address] [place] Potassium [Moles/Vol] 4.0 mmol/L Normal 3.7-5.1 [facility] Comment on above: Order Comment: Speci men Type: BLOOD SPECIMEN Ordering Facility: [facility] Address: [address] [place] [address] Performed By: #### 2 4331-1 #### [facility] CLIA [id number] [address] [place] [address] [place] [facility] CLIA [id number] [address] [place] [address] [place] #### 50083-2 #### [facility] CLIA [id number] [address] [place] [address] [place] Sodium [Moles/Vol] 135 mmol/L Low 136-144 [facility] Comment on above: Order Comment: Speci men Type: BLOOD SPECIMEN Ordering Facility: [facility] Address: [address] [place] [address] Performed By: #### 2 4331-1 #### [facility] CLIA [id number] [address] [place] [address] [place] [facility] CLIA [id number] [address] [place] [address] [place] #### 85667-1 #### [facility] CLIA [id number] [address] [place] [address] [place] Urea nitrogen [Mass/Vol] 41 mg/dL High 7-21 [facility] Comment on above: Order Comment: Speci men Type: BLOOD SPECIMEN Ordering Facility: [facility] Address: [address] [place] [address] Performed By: #### 2 4331-1 #### [facility] CLIA [id number] [address] [place] [address] [place] [facility] [id number] [address] [place] [address] [place] #### 80306-1 #### [facility] CLIA [id number] [address] [place] [address] [place] NT-proBNP [facility] 11-13 Natriuretic peptide.B prohormone N-Terminal [Mass/Vol] 65504 pg/mL High <450 [facility] Comment on above: Order Comment: Speci men Type: BLOOD SPECIMEN Ordering Facility: [facility] Address: [address] [place] [address] Performed By: #### 2 4331-1 #### [facility] CLIA [id number] [address] [place] [address] [place] [facility] CLIA [id number] [address] [place] [address] [place] #### 37286-2 #### [facility] CLIA [id number] [address] [place] [address] [place] CNOVon 11-06-2024 CNOV Office Visit (CARDWS ) -------- BERTA SANCHES ([id number]) 1945 [place] Date Time Provider Department 11/06/24 2:40 PM CARLA BURDICK During your visit today, we recorded the following information about you: Pulse Respiration Blood pressure Weight 68/minute 12/minute 134/54 68.9 kg Height 1.575 m Carla Burdick MD 11/06/2024 5:01 PM Signed [facility] SECTION OF REGIONAL CARDIOLOGY Cardiology ([facility]) [address] [facility] [address] OUTPATIENT VISIT DATE 11/06/2024 PRIMARY CARE PHYSICIAN: Doreen Le [address] [place] [address] HISTORY OF PRESENT ILLNESS: Ms. Sanches is [...] admitted to the hospital while vacationing in [place]. She underwent SMA stent placement. This was followed by a long admission for decompensated congestive heart failure in the setting of the renal insufficiency. 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 Lua PACEMAKER 10/2019 PART. HYSTERECTOMY W/WO RMVL OVARIES/TUBES 1973 h/o cervical cancer ovaries remain PAST SURGICAL HISTORY OF 1996 Aortic valve repair, Dr. Apodaca PAST SURGICAL HISTORY OF 2001 [address] Beltrán, [facility] PAST SURGICAL HISTORY OF 2015 clipping [...] Allergen Reactions (more content not included)... Normal [facility] Basic metabolic 2000 panelon 11-03-2024 Anion gap [Moles/Vol] 11 mmol/L 8 - 15 mmol/L [facility] Calcium [Mass/Vol] 9.1 mg/dL 8.5 - 10. 2 mg/dL [facility] Chloride [Moles/Vol] 84 mmol/L Low 98 - 10 7 mmol/L [facility] CO2 [Moles/Vol] 27 mmol/L 22 - 30 mmol/L [facility] Creatinine [Mass/Vol] 2.36 mg/dL High 0.58 - 0.96 mg/dL [facility] GFR/1.73 sq M.predicted among non-blacks MDRD (S/P/Bld) [Vol rate/Area] 20 mL/min/{1.73_m2} Low - PINF [facility] Comment on above: Estimated Glomerular Filtration Rate [...] 114 mg/dL High 74 - 99 mg/dL [facility] Comment on above: The [place] Diabete s Association (ADA) provides guidance for [...] Standards of Medical Care in Diabetes 2016, [place] Diabetes Association. Diabetes Care. 2016.39(Suppl 1). Interpretation and review of laboratory results Abnormal [facility] Potassium [Moles/Vol] 4.3 mmol/L 3.7 - 5.1 mmol/L [facility] Sodium [Moles/Vol] 122 mmol/L Low 136 - 144 mmol/L [facility] Urea nitrogen [Mass/Vol] 57 mg/dL High 7 - 21 mg/dL [facility] Anion gap [Moles/Vol] 11 mmol/L Normal 8-15 [facility] Comment on above: Order Comment: Annie ricci Type: BLOOD SPECIMEN Ordering Facility: [facility] Address: [address] [place] [address] Performed By: #### 2 132-9, 2283-8 #### [facility] CLIA [id number] [address] [place] [address] [place] Calcium [Mass/Vol] 9.1 mg/dL Normal 8.5-10.2 [facility] Comment on above: Order Comment: Annie ricci Type: BLOOD SPECIMEN Ordering Facility: [facility] Address: [address] [place] [address] Performed By: #### 2 132-9, 2283-8 #### [facility] CLIA [id number] [address] [place] [address] [place] Chloride [Moles/Vol] 84 mmol/L Low 98-107 [facility] Comment on above: Order Comment: Annie ricci Type: BLOOD SPECIMEN Ordering Facility: [facility] Address: [address] [place] [address] Performed By: #### 2 132-9, 2283-8 #### [facility] CLIA [id number] [address] [place] [address] [place] CO2 [Moles/Vol] 27 mmol/L Normal 22-30 [facility] Comment on above: Order Comment: Annie ricci Type: BLOOD SPECIMEN Ordering Facility: [facility] Address: [address] [place] [address] Performed By: #### 2 132-9, 2284-8 #### [facility] CLIA [id number] [address] [place] [address] [place] Creatinine [Mass/Vol] 2.36 mg/dL High 0.58-0.96 [facility] Comment on above: Order Comment: Annie ricci Type: BLOOD SPECIMEN Ordering Facility: [facility] Address: [address] [place] [address] Performed By: #### 2 132-9, 2284-8 #### [facility] CLIA [id number] [address] [place] [address] [place] Creatinine and Glomerular filtration rate.predicted panel (S/P/Bld) 20 mL/min/1.73m??? Low >=60 [facility] Comment on above: Order Comment: Annie ricci Type: BLOOD SPECIMEN Ordering Facility: [facility] Address: [address] [place] [address] Result Comment: Mira mated Glomerular Filtration Rate [...] Performed By: #### 2 132-9, 2284-8 #### [facility] CLIA [id number] [address] [place] [address] [place] Glucose [Mass/Vol] 114 mg/dL High 74-99 [facility] Comment on above: Order Comment: Annie ricci Type: BLOOD SPECIMEN Ordering Facility: [facility] Address: [address] [place] [address] Result Comment: The [place] Diabetes Association (ADA) provides guidance for cutoff [...] Standards of Medical Care in Diabetes 2016, [place] Diabetes Association. Diabetes Care. 2016.39(Suppl 1). Performed By: #### 2 132-9, 2283-8 #### [facility] CLIA [id number] [address] [place] Potassium [Moles/Vol] 4.3 mmol/L Normal 3.7-5.1 [facility] Comment on above: Order Comment: Annie ricci Type: BLOOD SPECIMEN Ordering Facility: [facility] Address: [address] [place] [address] Performed By: #### 2 132-9, 2283-8 #### [facility] CLIA [id number] [address] [place] Sodium [Moles/Vol] 122 mmol/L Low 136-144 [facility] Comment on above: Order Comment: Annie ricci Type: BLOOD SPECIMEN Ordering Facility: [facility] Address: [address] [place] [address] Performed By: #### 2 132-9, 2283-8 #### [facility] CLIA [id number] [address] STATES [facility] Urea nitrogen [Mass/Vol] 57 mg/dL High 7-21 [facility] Comment on above: Order Comment: Annie ricci Type: BLOOD SPECIMEN Ordering Facility: [facility] Address: [address] [place] [address] Performed By: #### 2 132-9, 2283-8 #### [facility] CLIA [id number] [address] [place] CNOVon 11-03-2024 CNOV Office Visit ([facility] ) -------- BERTA SANCHES ([id number]) 1945 F [place] Date Time Provider Department 11/03/24 9:00 AM ALBIN GU [facility] During your visit today, we recorded the [...] or concern, you can call me at [phone]. Albin Gu APRN.CNP 11/03/2024 10:28 AM Signed [facility] [place] [facility] OUTPATIENT VISIT DATE November 03, 2024 OUTPATIENT VISIT TYPE ESTABLISHED PRIMARY CARE PHYSICIAN: Deysi Nichoslon APRN.JASPREET CHIEF COMPLAINT: Patient presents with: Breathing [...] and was worried about traveling home to [place] in a few days. Discussed with her taking lasix as it was prescribed. As her spironolactone was stopped, did advise patient restart this at 25 mg once a day for four days only. She was instructed to call office in a week to review symptoms. On 10/15, patient presented back to [facility] for gastrointestinal bleed. She had a colonoscopy [...] and entresto. The patient wished to leave [place] so she could return to [place]. Cardiology and Pulmonary agreed with discharge. Today, the patient reports feeling okay. Since she was hospitalized in [place], she has not felt that well. Feels very tired. Denies shortness of breath. Was seen by her PCP on Wednesday who suggested patient be admitted due to significant worsening in kidney function however, the patient and declined admission as she just returned home the day before. States she was started on bumex drip and then received oral bumex while in [place] and noted a worsening in kidney function. [...] roasted chicken, asparagus and salad. While in [place], she was very conscious about her diet. She weighed every day. She feels after the first hospitalization, she gained approx 20 lbs which she did call and discuss this with this HF THERAPEUTIC DIETITIAN. Wearing lidocaine patch over site to right side of neck as she mentions havi (more content not included)... Normal [facility] 11-03-2024 [facility] Telephone ([facility]) -------- BERTA SANCHES ([id number]) 1945 [facility] Date Time Provider Department 11/03/24 ALBIN GU [facility] During your visit today, we recorded the following information about you: Albin Gu APRN.MANPOWER DEVELOPMENT SPECIALIST MANAGER 11/03/2024 12:49 PM Signed Called patient to [...] agree with plan of care. 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 Normal [facility] CBC W Auto Differential pane l (Bld)on 10-31-2024 Basophils (Bld) [#/Vol] 0.06 10*3/uL [facility] Basophils/100 WBC (Bld) 1 % [facility] Differential cell count method Nom (Bld) Auto [facility] Eosinophils (Bld) [#/Vol] 0.13 10*3/uL [facility] Eosinophils/100 WBC (Bld) 2.1 % [facility] Erythrocyte distribution width (RBC) [Ratio] 16.8 % High 11.5 - 15.0 % [facility] Hematocrit (Bld) [Volume fraction] 26.3 % Low 36.0 - 46.0 % [facility] Hemoglobin (Bld) [Mass/Vol] 8.7 g/dL Low 11.5 - 15.5 g/dL [facility] Immature granulocytes (Bld) [#/Vol] 0.04 10*3/uL [facility] Immature granulocytes/100 WBC (Bld) 0.6 % [facility] Interpretation and review of laboratory results Abnormal [facility] Lymphocytes (Bld) [#/Vol] 1.29 10*3/uL [facility] Lymphocytes/100 WBC (Bld) 20.6 % [facility] MCH (RBC) [Entitic mass] 31.6 pg 26.0 - 34.0 pg [facility] MCHC (RBC) [Mass/Vol] 33.1 g/dL 30.5 - 36.0 g/dL [facility] MCV (RBC) [Entitic vol] 95.6 fL 80.0 - 100.0 fL [facility] Monocytes (Bld) [#/Vol] 0.82 10*3/uL [facility] Monocytes/100 WBC (Bld) 13.1 % [facility] Neutrophils (Bld) [#/Vol] 3.92 10*3/uL [facility] Neutrophils/100 WBC (Bld) 62.6 % [facility] Nucleated RBC (Bld) [#/Vol] NINF [facility] Nucleated RBC/100 WBC (Bld) [Ratio] 0 % /100 WBC [facility] Platelet mean volume (Bld) [Entitic vol] 9.5 fL 9.0 - 12.7 fL [facility] Platelets (Bld) [#/Vol] 202 10*3/uL [facility] RBC (Bld) [#/Vol] 2.75 10*6/uL Low 3.90 - 5.2 0 m/uL [facility] WBC (Bld) [#/Vol] 6.26 10*3/uL [facility] Basophils (Bld) [#/Vol] 0.06 10*3/uL Normal <0.11 [facility] Comment on above: Order Comment: Speci men Type: BLOOD SPECIMEN Ordering Facility: [facility] Address: [address] [place] [address] Performed By: #### 2 4331-1 #### [facility] CLIA [id number] [address] [place] [address] [place] [facility] [id number] [address] [place] [address] [place] #### [id number] #### [facility] CLIA [id number] [address] [place] [address] [place] Basophils/100 WBC (Bld) 1.0 % Normal [facility] Comment on above: Order Comment: Speci men Type: BLOOD SPECIMEN Ordering Facility: [facility] Address: [address] [place] [address] Performed By: #### 2 4331-1 #### [facility] CLIA [id number] [address] [place] [address] [place] [facility] [id number] [address] [place] [address] [place] #### 78097-3 #### [facility] CLIA [id number] [address] [place] [address] [place] Differential cell count method Nom (Bld) Auto Normal [facility] Comment on above: Order Comment: Speci men Type: BLOOD SPECIMEN Ordering Facility: [facility] Address: [address] [place] [address] Performed By: #### 2 4331-1 #### [facility] CLIA [id number] [address] [place] [address] [place] [facility] CLIA [id number] [address] [place] [address] [place] #### 44316-6 #### [facility] CLIA [id number] [address] [place] [address] [place] Eosinophils (Bld) [#/Vol] 0.13 10*3/uL Normal <0.46 [facility] Comment on above: Order Comment: Speci men Type: BLOOD SPECIMEN Ordering Facility: [facility] Address: [address] [place] [address] Performed By: #### 2 4331-1 #### [facility] CLIA [id number] [address] [place] [address] [place] [facility] CLIA [id number] [address] [place] [address] [place] #### 61861-0 #### [facility] CLIA [id number] [address] [place] [address] [place] Eosinophils/100 WBC (Bld) 2.1 % Normal [facility] Comment on above: Order Comment: Speci men Type: BLOOD SPECIMEN Ordering Facility: [facility] Address: [address] [place] [address] Performed By: #### 2 4331-1 #### [facility] CLIA [id number] [address] [place] [address] [place] [facility] CLIA [id number] [address] [place] [address] [place] #### 01194-7 #### [facility] CLIA [id number] [address] [place] [address] [place] Erythrocyte distribution width (RBC) [Ratio] 16.8 % High 11.5-15.0 [facility] Comment on above: Order Comment: Speci men Type: BLOOD SPECIMEN Ordering Facility: [facility] Address: [address] [place] [address] Performed By: #### 2 4331-1 #### [facility] CLIA [id number] [address] [place] [address] [place] [facility] [id number] [address] [place] [address] [place] #### [id number] #### [facility] CLIA [id number] [address] [place] [address] [place] Hematocrit (Bld) [Volume fraction] 26.3 % Low 36.0-46.0 [facility] Comment on above: Order Comment: Speci men Type: BLOOD SPECIMEN Ordering Facility: [facility] Address: [address] [place], [place] [address] Performed By: #### 2 4331-1 #### [facility] CLIA [id number] [address] [place] [address] [place] [facility] CLIA [id number] [address] [place] [address] [place] #### 65290-4 #### [facility] CLIA [id number] [address] [place] [address] [place] Hemoglobin (Bld) [Mass/Vol] 8.7 g/dL Low 11.5-15.5 [facility] Comment on above: Order Comment: Speci men Type: BLOOD SPECIMEN Ordering Facility: [facility] Address: [address] [place] [id number] Performed By: #### 2 4331-1 #### [facility] CLIA [id number] [address] [place] [id number] [place] [facility] CLIA [id number] [address] [place] [address] [place] #### [id number] #### [facility] CLIA [id number] [address] [place] [address] [place] Immature granulocytes (Bld) [#/Vol] 0.04 10*3/uL Normal <0.10 [facility] Comment on above: Order Comment: Speci men Type: BLOOD SPECIMEN Ordering Facility: [facility] Address: [address] [place] [address] Performed By: #### 2 4331-1 #### [facility] CLIA [id number] [address] [place] [address] [place] [facility] CLIA [id number] [address] [place] [address] [place] #### 28469-8 #### [facility] CLIA [id number] [address] [place] [address] [place] Immature granulocytes/100 WBC (Bld) 0.6 % Normal [facility] Comment on above: Order Comment: Speci men Type: BLOOD SPECIMEN Ordering Facility: [facility] Address: [address] [place] [place] [id number] Performed By: #### 2 4331-1 #### [facility] CLIA [id number] [address] [place], [place] [address] [place] [facility] CLIA [id number] [address] [place] [address] [place] #### 23005-6 #### [facility] CLIA [id number] [address] [place] [address] [place] Lymphocytes (Bld) [#/Vol] 1.29 10*3/uL Normal 1.00-4.00 [facility] Comment on above: Order Comment: Speci men Type: BLOOD SPECIMEN Ordering Facility: [facility] Address: [address] [place] [address] Performed By: #### 2 4331-1 #### [facility] CLIA [id number] [address] [place] [address] [place] [facility] [id number] [address] [place] [address] [place] #### 44260-7 #### [facility] CLIA [id number] [address] [place] [address] [place] Lymphocytes/100 WBC (Bld) 20.6 % Normal [facility] Comment on above: Order Comment: Speci men Type: BLOOD SPECIMEN Ordering Facility: [facility] Address: [address] [place] [address] Performed By: #### 2 4331-1 #### [facility] CLIA [id number] [address] [place] [address] [place] [facility] [id number] [address] [place] [address] [place] #### [id number] #### [facility] CLIA [id number] [address] [place] [address] [place] MCH (RBC) [Entitic mass] 31.6 pg Normal 26.0-34.0 [facility] Comment on above: Order Comment: Speci men Type: BLOOD SPECIMEN Ordering Facility: [facility] Address: [address] [place] [address] Performed By: #### 2 4331-1 #### [facility] CLIA [id number] [address] [place] [address] [place] [facility] CLIA [id number] [address] [place] [address] [place] #### 70173-4 #### [facility] CLIA [id number] [address] [place] [address] [place] MCHC (RBC) [Mass/Vol] 33.1 g/dL Normal 30.5-36.0 [facility] Comment on above: Order Comment: Speci men Type: BLOOD SPECIMEN Ordering Facility: [facility] Address: [address] [place] [address] Performed By: #### 2 4331-1 #### [facility] CLIA [id number] [address] [place] [address] [place] [facility] CLIA [id number] [address] [place] [address] [place] #### [id number] #### [facility] CLIA [id number] [address] [place] [address] [place] MCV (RBC) [Entitic vol] 95.6 fL Normal 80.0-100.0 [facility] Comment on above: Order Comment: Speci men Type: BLOOD SPECIMEN Ordering Facility: [facility] Address: [address] [place] [address] Performed By: #### 2 4331-1 #### [facility] CLIA [id number] [address] [place] [address] [place] [facility] CLIA [id number] [address] [place] [address] [place] #### [id number] #### [facility] CLIA [id number] [address] [place] [id number] [place] Monocytes (Bld) [#/Vol] 0.82 10*3/uL Normal <0.87 [facility] Comment on above: Order Comment: Speci men Type: BLOOD SPECIMEN Ordering Facility: [facility] Address: [address] [place], [place] [address] Performed By: #### 2 4331-1 #### [facility] CLIA [id number] [address] [place] [address] [place] [facility] CLIA [id number] [address] [place] [address] [place] #### 93643-9 #### [facility] CLIA [id number] [address] [place] [address] [place] Monocytes/100 WBC (Bld) 13.1 % Normal [facility] Comment on above: Order Comment: Speci men Type: BLOOD SPECIMEN Ordering Facility: [facility] Address: [address] [place] [address] Performed By: #### 2 4331-1 #### [facility] CLIA [id number] [address] [place] [address] [place] [facility] CLIA [id number] [address] [place] [address] [place] #### 58518-5 #### [facility] CLIA [id number] [address] [place] [address] [place] Neutrophils (Bld) [#/Vol] 3.92 10*3/uL Normal 1.45-7.50 [facility] Comment on above: Order Comment: Speci men Type: BLOOD SPECIMEN Ordering Facility: [facility] Address: [address] [place], [place] [address] Performed By: #### 2 4331-1 #### [facility] CLIA [id number] [address] [address] [place] [facility] CLIA [id number] [address] [place] [address] [place] #### 68881-0 #### [facility] CLIA [id number] [address] [place] [address] [place] Neutrophils/100 WBC (Bld) 62.6 % Normal [facility] Comment on above: Order Comment: Speci men Type: BLOOD SPECIMEN Ordering Facility: [facility] Address: [address] [place], [place] [address] Performed By: #### 2 4331-1 #### [facility] CLIA [id number] [address] [place] [address] [place] [facility] [id number] [address] [place] [address] [place] #### 95664-3 #### [facility] CLIA [id number] [address] [place], [place] [address] [place] Nucleated RBC (Bld) [#/Vol] 10*3/uL Normal <0.01 [facility] Comment on above: Order Comment: Speci men Type: BLOOD SPECIMEN Ordering Facility: [facility] Address: [address] [place], [place] [address] Performed By: #### 2 4331-1 #### [facility] CLIA [id number] [address] [place], [place] [address] [place] [facility] CLIA [id number] [address] [place] [address] [place] #### 54172-0 #### [facility] CLIA [id number] [address] [place], [place] [address] [place] Nucleated RBC/100 WBC (Bld) [Ratio] 0.0 /100 WBC Normal [facility] Comment on above: Order Comment: Speci men Type: BLOOD SPECIMEN Ordering Facility: [facility] Address: [address] [place] [address] Performed By: #### 2 4331-1 #### [facility] CLIA [id number] [address] [place] [address] [place] [facility] CLIA [id number] [address] [place] [address] [place] #### 04184-7 #### [facility] CLIA [id number] [address] [place] [address] [place] Platelet mean volume (Bld) [Entitic vol] 9.5 fL Normal 9.0-12.7 [facility] Comment on above: Order Comment: Speci men Type: BLOOD SPECIMEN Ordering Facility: [facility] Address: [address] [place] [address] Performed By: #### 2 4331-1 #### [facility] CLIA [id number] [address] [place] [address] [place] [facility] CLIA [id number] [address] [place] [address] [place] #### 17382-2 #### [facility] CLIA [id number] [address] [place] [address] [place] Platelets (Bld) [#/Vol] 202 10*3/uL Normal 150-400 [facility] Comment on above: Order Comment: Speci men Type: BLOOD SPECIMEN Ordering Facility: [facility] Address: [address] [place] [id number] Performed By: #### 2 4331-1 #### [facility] CLIA [id number] [address] [place] [address] [place] [facility] CLIA [id number] [address] [place] [address] [place] #### 69824-2 #### [facility] CLIA [id number] [address] [place] [address] [place] RBC (Bld) [#/Vol] 2.75 10*6/uL Low 3.90-5.20 [facility] Comment on above: Order Comment: Speci men Type: BLOOD SPECIMEN Ordering Facility: [facility] Address: [address] [place] [address] Performed By: #### 2 4331-1 #### [facility] CLIA [id number] [address] [place] [address] [place] [facility] CLIA [id number] [address] [place] [address] [place] #### 00363-3 #### [facility] CLIA [id number] [address] [place] [address] [place] WBC (Bld) [#/Vol] 6.26 10*3/uL Normal 3.70-11.00 [facility] Comment on above: Order Comment: Speci men Type: BLOOD SPECIMEN Ordering Facility: [facility] Address: [address] [place] [address] Performed By: #### 2 4331-1 #### [facility] CLIA [id number] [address] [place] [address] [place] [facility] CLIA [id number] [address] [place] [address] [place] #### 51383-8 #### [facility] CLIA [id number] [address] [place] [address] [place] CNOVon 10-31-2024 CNOV Office Visit (FAMPWS ) -------- BERTA SANCHES ([id number]) 1945 F [place] Date Time Provider Department 10/31/24 11:00 AM SHAYE DOMINGO During your visit today, we recorded the following information about you: Pulse Blood pressure Weight 84/minute 147/68 64.4 kg Shaye Domingo, THERAPEUTIC DIETITIAN.MANPOWER DEVELOPMENT SPECIALIST MANAGER 10/31/2024 12:52 PM Signed Chief Complaint Patient presents with: Hospital F/U [facility] Berta Sanches is a 79 year old female who presents here today for Above Complaints.. Acute Mesenteric Ischemia: - Initially admitted to [facility] on 10/02/2024. - Underwent femoral ultrasound-guided angiogram with angioplasty and stenting of the SMA. - Required CRRT for MONIQUE post-op. - Developed AFib with RVR post-op. - Discharged after 23-day hospitalization. Acute on Chronic Heart Failure: - Given IV Lasix during initial admission. - Readmitted to 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 Lua PACEMAKER 10/2019 PART. HYSTERECTOMY W/WO RMVL OVARIES/TUBES 1973 h/o cervical cancer ovaries remain PAST SURGICAL HISTORY OF 1996 Aortic valve repair, Dr. Apodaca PAST SURGICAL HISTORY OF 2001 [address] Beltrán, [facility] PAST SURGICAL HISTORY OF 2016 clipping [...] mcg epi (more content not included)... Normal [facility] Comprehensive metabolic 2000 panelOrdered By: Shala Segura on 10-31-2024 Albumin [Mass/Vol] 4 g/dL 3.9 - 4.9 g/dL [facility] ALP [Catalytic activity/Vol] 81 U/L 34 - 123 U/L [facility] ALT [Catalytic activity/Vol] 10 U/L 7 - 38 U/L [facility] Anion gap [Moles/Vol] 11 mmol/L 8 - 15 mmol/L [facility] AST [Catalytic activity/Vol] 19 U/L 13 - 35 U/L [facility] Bilirubin [Mass/Vol] 1 mg/dL 0.2 - 1 .3 mg/dL [facility] Calcium [Mass/Vol] 9.3 mg/dL 8.5 - 10. 2 mg/dL [facility] Chloride [Moles/Vol] 83 mmol/L Low 98 - 10 7 mmol/L [facility] CO2 [Moles/Vol] 29 mmol/L 22 - 30 mmol/L [facility] Creatinine [Mass/Vol] 2.5 mg/dL High 0.58 - 0.96 mg/dL [facility] GFR/1.73 sq M.predicted among non-blacks MDRD (S/P/Bld) [Vol rate/Area] 19 mL/min/{1.73_m2} Low - PINF [facility] Comment on above: Estimated Glomerular Filtration Rate [...] 138 mg/dL High 74 - 99 mg/dL [facility] Comment on above: The [place] [employer] (ADA) provides guidance for [...] Standards of Medical Care in Diabetes 2016, [place] [employer]. Diabetes Care. 2016.39(Suppl 1). Interpretation and review of laboratory results Abnormal [facility] Potassium [Moles/Vol] 3.8 mmol/L 3.7 - 5.1 mmol/L [facility] Protein [Mass/Vol] 7 g/dL 6.3 - 8.0 g/dL [facility] Sodium [Moles/Vol] 123 mmol/L Low 136 - 144 mmol/L [facility] Urea nitrogen [Mass/Vol] 53 mg/dL High 7 - 21 mg/dL [facility] Comprehensive metabolic 2000 panelon 10-31-2024 Albumin [Mass/Vol] 4.0 g/dL Normal 3.9-4.9 [facility] Comment on above: Order Comment: Speci men Type: BLOOD SPECIMEN Ordering Facility: [facility] Address: [address] [place] [address] Performed By: #### 3 3762-6 #### [facility] CLIA [id number] [address] [place] [address] [place] ALP [Catalytic activity/Vol] 81 U/L Normal 34-123 [facility] Comment on above: Order Comment: Speci men Type: BLOOD SPECIMEN Ordering Facility: [facility] Address: [address] [place] [address] Performed By: #### 3 3762-6 #### [facility] CLIA [id number] [address] [place] [address] [place] ALT [Catalytic activity/Vol] 10 U/L Normal 7-38 [facility] Comment on above: Order Comment: Speci men Type: BLOOD SPECIMEN Ordering Facility: [facility] Address: [address] [place] [address] Performed By: #### 3 3762-6 #### [facility] CLIA [id number] [address] [place], [place] [address] [place] Anion gap [Moles/Vol] 11 mmol/L Normal 8-15 [facility] Comment on above: Order Comment: Speci men Type: BLOOD SPECIMEN Ordering Facility: [facility] Address: [address] [place] [address] Performed By: #### 3 3762-6 #### [facility] CLIA [id number] [address] [place] [address] [place] AST [Catalytic activity/Vol] 19 U/L Normal 13-35 [facility] Comment on above: Order Comment: Speci men Type: BLOOD SPECIMEN Ordering Facility: [facility] Address: [address] [place], [place] [address] Performed By: #### 3 3762-6 #### [facility] CLIA [id number] [address] [place] [address] [place] Bilirubin [Mass/Vol] 1.0 mg/dL Normal 0.2-1.3 [facility] Comment on above: Order Comment: Speci men Type: BLOOD SPECIMEN Ordering Facility: [facility] Address: [address] [place], [place] [address] Performed By: #### 3 3762-6 #### [facility] CLIA [id number] [address] [place] [address] [place] Calcium [Mass/Vol] 9.3 mg/dL Normal 8.5-10.2 [facility] Comment on above: Order Comment: Speci men Type: BLOOD SPECIMEN Ordering Facility: [facility] Address: [address] [place] [address] Performed By: #### 3 3762-6 #### [facility] CLIA [id number] [address] [place] [address] [place] Chloride [Moles/Vol] 83 mmol/L Low 98-107 [facility] Comment on above: Order Comment: Speci men Type: BLOOD SPECIMEN Ordering Facility: [facility] Address: [address] [place] [address] Performed By: #### 3 3762-6 #### [facility] CLIA [id number] [address] [place] [address] [place] CO2 [Moles/Vol] 29 mmol/L Normal 22-30 [facility] Comment on above: Order Comment: Speci men Type: BLOOD SPECIMEN Ordering Facility: [facility] Address: [address] [place] [address] Performed By: #### 3 3762-6 #### [facility] CLIA [id number] [address] [place] [address] [place] Creatinine [Mass/Vol] 2.50 mg/dL High 0.58-0.96 [facility] Comment on above: Order Comment: Speci men Type: BLOOD SPECIMEN Ordering Facility: [facility] Address: [address] [place] [address] Performed By: #### 3 3762-6 #### [facility] CLIA [id number] [address] [place] [address] [place] Creatinine and Glomerular filtration rate.predicted panel (S/P/Bld) 19 mL/min/1.73m??? Low >=60 [facility] Comment on above: Order Comment: Speci men Type: BLOOD SPECIMEN Ordering Facility: [facility] Address: [address] [place] [address] Result Comment: Mira mated Glomerular Filtration Rate [...] GFR. Performed By: #### 3 3762-6 #### [facility] CLIA [id number] [address] [address] [place] Glucose [Mass/Vol] 138 mg/dL High 74-99 [facility] Comment on above: Order Comment: Specbecca ricci Type: BLOOD SPECIMEN Ordering Facility: [facility] Address: [address] [place] [address] Result Comment: The [place] Diabetes Association (ADA) provides guidance for cutoff [...] Standards of Medical Care in Diabetes 2016, [place] Diabetes Association. Diabetes Care. 2016.39(Suppl 1). Performed By: #### 3 3762-6 #### [facility] CLIA [id number] [address] [place] [address] [place] Potassium [Moles/Vol] 3.8 mmol/L Normal 3.7-5.1 [facility] Comment on above: Order Comment: Annie ricci Type: BLOOD SPECIMEN Ordering Facility: [facility] Address: [address] [id number] Performed By: #### 3 3762-6 #### [facility] CLIA [id number] [address] [address] [place] Protein [Mass/Vol] 7.0 g/dL Normal 6.3-8.0 [facility] Comment on above: Order Comment: Speci men Type: BLOOD SPECIMEN Ordering Facility: [facility] Address: [address] [place] [address] Performed By: #### 3 3762-6 #### [facility] CLIA [id number] [address] [place], [place] [address] [place] Sodium [Moles/Vol] 123 mmol/L Low 136-144 [facility] Comment on above: Order Comment: Speci men Type: BLOOD SPECIMEN Ordering Facility: [facility] Address: [address] [place], [place] [address] Performed By: #### 3 3762-6 #### [facility] CLIA [id number] [address] [place] [address] [place] Urea nitrogen [Mass/Vol] 53 mg/dL High 7-21 [facility] Comment on above: Order Comment: Speci men Type: BLOOD SPECIMEN Ordering Facility: [facility] Address: [address] [place], [place] [address] Performed By: #### 3 3762-6 #### [facility] CLIA [id number] [address] [place], [place] [address] [place] MAGNESIUMon 10-31-2024 Magnesium [Mass/Vol] 2 mg/dL 1.7 - 2 .3 mg/dL [facility] Magnesium SerPl-mCncon 10-31 Magnesium [Mass/Vol] 2.0 mg/dL Normal 1.7-2.3 [facility] Comment on above: Order Comment: Speci men Type: BLOOD SPECIMEN Ordering Facility: [facility] Address: [address] [place] [address] Performed By: #### 2 4331-1 #### [facility] CLIA [id number] [address] [place] [address] [place] [facility] CLIA [id number] [address] [place] [address] [place] #### 18836-4 #### [facility] CLIA [id number] [address] [place], [place] [address] [place] [address] [place] Magnesium [Mass/Vol]on 10-31 Interpretation and review of laboratory results Normal [facility] No Panel InformationOrdered By: Shala Segura on 10-31-2024 [facility] Connie [facility]-12-2024 [facility] -------- BERTA SANCHES ([id number]) 1945 F [place] Date Time Provider Department 10/12/24 ALBIN GU [facility] During your visit today, we recorded the following information about you: Albin Gu APRN.CNP 10/12/2024 12:36 PM Signed Patient called to schedule appt in [facility]. Patient also mentions she is currently in [place]. 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 [facility] 07-31-2024 [facility] -------- BERTA SANCHES ([id number]) 1945 F [facility] Date Time Provider Department 07/31/24 MELIDA KOO [facility] During your visit today, we recorded the following information about you: Melida Koo APRN.MANPOWER DEVELOPMENT SPECIALIST MANAGER 07/31/2024 12:00 PM Signed Pt called to request refill for KDur as she has run out of prescription. She states that she is currently in [place] and will be in [place] until October. [facility] called in [place], [place]. Spoke with Pharmacist on duty. Rx for KDur 10 meq PO daily given verbally #90 with no refills. 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 Normal [facility] 25(OH)D3 SerPl-mCncon 2024 25-hydroxyvitamin D3 [Mass/Vol] 41.9 ng/mL Normal 31.0-80.0 [facility] Comment on above: Order Comment: Speci men Type: BLOOD SPECIMEN Ordering Facility: [facility] Address: [address] [place] [address] Result Comment: Clas sification of 25 [place] Vitamin D status: Deficiency/Insufficiency: < or = 30 ng/ml. Sufficiency/Optimal Levels: 31-80 ng/mL Toxicity: > 100 ng/mL. Test performed by chemiluminescent immunoassay. Performed By: #### 2 4331-1 #### [facility] CLIA [id number] [address] [place] [address] [place] [facility] CLIA [id number] [address] [place] [address] [place] #### 29742-1 #### [facility] CLIA [id number] [address] [place] [address] [place] ALBUMIN/CREATININE RATIO, INEon 07-07-2024 Albumin DL <= 20 mg/L (U) [Mass/Vol] 21.0 mg/L Normal [facility] Comment on above: Order Comment: Speci men Type: BLOOD SPECIMEN Ordering Facility: [facility] Address: [address] [place] [address] Performed By: #### 2 4331-1 #### [facility] CLIA [id number] [address] [place] [address] [place] [facility] CLIA [id number] [address] [place] [address] [place] #### 62214-9 #### [facility] CLIA [id number] [address] [place] [address] [place] Albumin/Creatinine (U) [Mass ratio] 34 mg/g High <30 [facility] Comment on above: Order Comment: Speci men Type: BLOOD SPECIMEN Ordering Facility: [facility] Address: [address] [place] [address] Result Comment: Adul t Male and Female Nephrotic Criteria: <30 mg/g is considered normal to mildly increased 30-300 mg/g is considered moderately increased >300 mg/g is considered severely increased KDIGO. (2013). KDIGO 2012 Clinical Practice Guideline for the Evaluation and Management of Chronic Kidney Disease. Official Journal of the International Society of Nephrology, 3(1), 1-150. Performed By: #### 2 4331-1 #### [facility] CLIA [id number] [address] [place] [address] [place] [id number] [place] [address] [place] #### 11541-9 #### [facility] CLIA [id number] [address] [place] [address] [place] Creatinine (U) [Mass/Vol] 61.6 mg/dL Normal 20.0-300.0 [facility] Comment on above: Order Comment: Speci men Type: BLOOD SPECIMEN Ordering Facility: [facility] Address: [address] [place] [address] Performed By: #### 2 4331-1 #### [facility] CLIA [id number] [address] [place] [address] [place] [id number] [place] [address] [place] #### 83544-3 #### [facility] CLIA [id number] [address] [place] [address] [place] Basic metabolic 2000 panelon 07-07-2024 Anion gap [Moles/Vol] 13 mmol/L Normal 8-15 [facility] Comment on above: Order Comment: Speci men Type: BLOOD SPECIMEN Ordering Facility: [facility] Address: [address] [place] [address] Performed By: #### 3 3762-6 #### [facility] CLIA [id number] [address] [place], [place] [address] [place] Calcium [Mass/Vol] 9.8 mg/dL Normal 8.5-10.2 [facility] Comment on above: Order Comment: Speci men Type: BLOOD SPECIMEN Ordering Facility: [facility] Address: [address] [place] [address] Performed By: #### 3 3762-6 #### [facility] CLIA [id number] [address] [place] [address] [place] Chloride [Moles/Vol] 100 mmol/L Normal 98-107 [facility] Comment on above: Order Comment: Speci men Type: BLOOD SPECIMEN Ordering Facility: [facility] Address: [address] [place] [address] Performed By: #### 3 3762-6 #### [facility] CLIA [id number] [address] [place] [address] [place] CO2 [Moles/Vol] 25 mmol/L Normal 22-30 [facility] Comment on above: Order Comment: Speci men Type: BLOOD SPECIMEN Ordering Facility: [facility] Address: [address] [place], [place] [id number] Performed By: #### 3 3762-6 #### [facility] CLIA [id number] [address] [place], [place] [address] [place] Creatinine [Mass/Vol] 1.12 mg/dL High 0.58-0.96 [facility] Comment on above: Order Comment: Speci men Type: BLOOD SPECIMEN Ordering Facility: [facility] Address: [address] [place] [address] Performed By: #### 3 3762-6 #### [facility] CLIA [id number] [address] [place] [address] [place] Creatinine and Glomerular filtration rate.predicted panel (S/P/Bld) 50 mL/min/1.73m??? Low >=60 [facility] Comment on above: Order Comment: Annie ricci Type: BLOOD SPECIMEN Ordering Facility: [facility] Address: [address] [place] [address] Result Comment: Mira mated Glomerular Filtration Rate [...] GFR. Performed By: #### 3 3762-6 #### [facility] CLIA [id number] [address] [place] [address] [place] Glucose [Mass/Vol] 118 mg/dL High 74-99 [facility] Comment on above: Order Comment: Annie ricci Type: BLOOD SPECIMEN Ordering Facility: [facility] Address: [address] [place] [address] Result Comment: The [place] Diabetes Association (ADA) provides guidance for cutoff [...] Standards of Medical Care in Diabetes 2016, [place] Diabetes Association. Diabetes Care. 2016.39(Suppl 1). Performed By: #### 3 3762-6 #### [facility] CLIA [id number] [address] [place] [address] [place] Potassium [Moles/Vol] 4.4 mmol/L Normal 3.7-5.1 [facility] Comment on above: Order Comment: Speci men Type: BLOOD SPECIMEN Ordering Facility: [facility] Address: [address] [place] [address] Performed By: #### 3 3762-6 #### [facility] CLIA [id number] [address] [place] [address] [place] Sodium [Moles/Vol] 138 mmol/L Normal 136-144 [facility] Comment on above: Order Comment: Speci men Type: BLOOD SPECIMEN Ordering Facility: [facility] Address: [address] [place] [address] Performed By: #### 3 3762-6 #### [facility] CLIA [id number] [address] [place] [address] [place] Urea nitrogen [Mass/Vol] 34 mg/dL High 7-21 [facility] Comment on above: Order Comment: Speci men Type: BLOOD SPECIMEN Ordering Facility: [facility] Address: [address] [place] [address] Performed By: #### 3 3762-6 #### [facility] CLIA [id number] [address] [place] [address] [place] CNOVon 07-07-2024 CNOV Office Visit (LAUREL ) -------- BERTA SANCHES ([id number]) 1945 F [facility] Date Time Provider Department 07/07/24 8:00 AM DEYSI NICHOLSON During your visit today, we recorded the following information about you: Pulse Respiration Blood pressure Weight 69/minute 16/minute 136/70 63.5 kg Deysi Nicholson APRN.MANPOWER DEVELOPMENT SPECIALIST MANAGER 07/07/2024 12:41 PM Signed This is a 78 year old female who presents today with: Patient presents with: Establish Care HISTORY OF PRESENT ILLNESS: Berta Sanches is a 78 year old female. Patient presents with: Establish Care [facility] HTN: Patient is compliant with meds Yes. 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 Lua PACEMAKER 10/2019 PART. HYSTERECTOMY W/WO RMVL OVARIES/TUBES 1974 h/o cervical cancer ovaries remain PAST SURGICAL HISTORY OF 1996 Aortic valve repair, Dr. Apodaca PAST SURGICAL HISTORY OF 2001 [address] Beltrán, [facility] PAST SURGICAL HISTORY OF 2015 clipping [...] once daily. (more content not included)... Normal [facility] HbA1c (Bld)on 07-07-2024 Average glucose Estimated from glycated hemoglobin (Bld) [Mass/Vol] 151 mg/dL Normal [facility] Comment on above: Order Comment: Annie ricci Type: BLOOD SPECIMEN Ordering Facility: [facility] Address: [address] [place] [address] Result Comment: eAG: (Estimated average glucose) is a calculated value from HgbA1c and is membership sales representative of the average blood glucose level in the last 2-3 month period. Performed By: #### 3 3762-6 #### [facility] CLIA [id number] [address] [place] [address] [place] HbA1c (Bld) [Mass fraction] 6.9 % High 4.3-5.6 [facility] Comment on above: Order Comment: Annie ricci Type: BLOOD SPECIMEN Ordering Facility: [facility] Address: [address] [place] [address] Result Comment: [place] Diabetes Association guidelines indicate that patients with HgbA1c in the range 5.7-6.4% are at increased risk for development of diabetes, and intervention by lifestyle modification may be beneficial. HgbA1c greater or equal to 6.5% is considered diagnostic of diabetes. Performed By: #### 3 3762-6 #### [facility] CLIA [id number] [address] [place] [address] [place] TSH SerPl-aCncon 07-07-2024 TSH Qn 2.650 m[IU]/L Normal 0.270-4.200 [facility] Comment on above: Order Comment: Annie ricci Type: BLOOD SPECIMEN Ordering Facility: [facility] Address: [address] [place] [address] Performed By: #### 3 3762-6 #### [facility] CLIA [id number] [address] [place] [address] OF [place] CNOVon 04-07-2024 CNOV Office Visit ([facility] ) -------- BERTA SANCHES ([id number]) 1945 F [facility] Date Time Provider Department 04/07/24 9:00 AM ALBIN GU [facility] During your visit today, we recorded the following information about you: Pulse Blood pressure Weight 91/minute 142/47 62.1 kg Albin Gu APRN.MANPOWER DEVELOPMENT SPECIALIST MANAGER 04/07/2024 9:57 AM Signed [facility] [place] [facility] OUTPATIENT VISIT DATE [...] a boat and take it out on [place] to fish. IMPRESSION: NYHA Functional Class: II [...] moderate car (more content not included)... Normal [facility] Urgent Care Visit Reporton 0 02-28-2024 Urgent Care Visit Report [facility] [address], [address] [place] [address] OFFICE VISIT Date of Service: 02/28/24 MR#: [id number] Acct: [id number] Name: BERTA SANCHES SCOTTIE Rep #: [id number] 6 : 1945 Provider: FERNANDO Washington Age/Sex: 78/F Location: 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 No [id number] products taken to assist. No other associated [...] Assessment and (more content not included)... Normal [facility] 02-21-2024 [facility] Telephone ([facility]) -------- BERTA SANCHES ([id number]) 1945 F [facility] Date Time Provider Department 02/21/24 MELIDA KOO [facility] During your visit today, we recorded the [...] 02/26/2014 03/21/2022 Intracranial aneurysm [I67.1] 08/30/2015 10/05/2022 [facility] current use of antiarrhythmic medical*10/20/2016 09/12/2021 Prosthetic [...] due t (more content not included)... Normal [facility] NT-proBNP [facility] 02-14 Natriuretic peptide.B prohormone N-Terminal [Mass/Vol] 5922 pg/mL High <450 [facility] Comment on above: Order Comment: Speci men Type: BLOOD SPECIMEN Ordering Facility: [facility] Address: [address] [place] [address] Performed By: #### 3 3762-6 #### [facility] CLIA [id number] [address] [place] [address] [place] CNPShantelle 02-07-2024 CNPN Telephone ([facility]) -------- BERTA SANCHES ([id number]) 1945 F [facility] Date Time Provider Department 02/07/24 MELIDA KOO [facility] During your visit today, we recorded the following information about you: Melida Koo APRN.MANPOWER DEVELOPMENT SPECIALIST MANAGER 02/07/2024 8:28 AM Signed Pt called and left message on voicemail stating that she was feeling much better since following instructions that Albin Gu had given her. She reported that SOB and edema was improved. She has concerns about NTpBNP and when she should have that rechecked. Called patient and she did not answer. Message left for call back. 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 [facility] BERTA SANCHES ([id number]) 1945 F [facility] Date Time Provider Department 02/04/24 ALBIN GU [facility] During your visit today, we recorded the following information about you: Albin Gu APRN.MANPOWER DEVELOPMENT SPECIALIST MANAGER 02/04/2024 11:36 AM Signed Returned patient phone [...] questions answered at this time. Albin Gu APRN.MANPOWER DEVELOPMENT SPECIALIST MANAGER Allergies As of Date: 02/04/2024 Noted Allergy [...] 02/26/2014 03/21/2022 Intracranial aneurysm [I67.1] 08/30/2015 10/05/2022 [facility] current use of antiarrhythmic medical*10/20/2016 09/12/2021 Prosthetic [...] blood loss (more content not included)... Normal [facility] Comprehensive metabolic 2000 panelon 02-03-2024 Albumin [Mass/Vol] 4.0 g/dL Normal 3.9-4.9 [facility] Comment on above: Order Comment: Speci men Type: BLOOD SPECIMEN Ordering Facility: [facility] Address: [address] [place] [address] Performed By: #### 3 3762-6 #### [facility] CLIA [id number] [address] [place] [address] [place] ALP [Catalytic activity/Vol] 102 U/L Normal 34-123 [facility] Comment on above: Order Comment: Speci men Type: BLOOD SPECIMEN Ordering Facility: [facility] Address: [address] [place] [address] Performed By: #### 3 3762-6 #### [facility] CLIA [id number] [address] [place] [address] [place] ALT [Catalytic activity/Vol] 10 U/L Normal 7-38 [facility] Comment on above: Order Comment: Speci men Type: BLOOD SPECIMEN Ordering Facility: [facility] Address: [address] [place] [address] Performed By: #### 3 3762-6 #### [facility] CLIA [id number] [address] [place] [address] [place] Anion gap [Moles/Vol] 11 mmol/L Normal 8-15 [facility] Comment on above: Order Comment: Speci men Type: BLOOD SPECIMEN Ordering Facility: [facility] Address: [address] [place] [address] Performed By: #### 3 3762-6 #### [facility] CLIA [id number] [address] [place] [address] [place] AST [Catalytic activity/Vol] 16 U/L Normal 13-35 [facility] Comment on above: Order Comment: Speci men Type: BLOOD SPECIMEN Ordering Facility: [facility] Address: [address] [place] [address] Performed By: #### 3 3762-6 #### [facility] CLIA [id number] [address] [place] [address] [place] Bilirubin [Mass/Vol] 1.1 mg/dL Normal 0.2-1.3 [facility] Comment on above: Order Comment: Speci men Type: BLOOD SPECIMEN Ordering Facility: [facility] Address: [address] [place] [address] Performed By: #### 3 3762-6 #### [facility] CLIA [id number] [address] [place] [address] [place] Calcium [Mass/Vol] 9.5 mg/dL Normal 8.5-10.2 [facility] Comment on above: Order Comment: Speci men Type: BLOOD SPECIMEN Ordering Facility: [facility] Address: [address] [place] [address] Performed By: #### 3 3762-6 #### [facility] CLIA [id number] [address] [place] [address] [place] Chloride [Moles/Vol] 98 mmol/L Normal 98-107 [facility] Comment on above: Order Comment: Speci men Type: BLOOD SPECIMEN Ordering Facility: [facility] Address: [address] [place] [address] Performed By: #### 3 3762-6 #### [facility] CLIA [id number] [address] [place] [address] [place] CO2 [Moles/Vol] 22 mmol/L Normal 22-30 [facility] Comment on above: Order Comment: Speci men Type: BLOOD SPECIMEN Ordering Facility: [facility] Address: [address] [place] [address] Performed By: #### 3 3762-6 #### [facility] CLIA [id number] [address] [place] [address] [place] Creatinine [Mass/Vol] 1.28 mg/dL High 0.58-0.96 [facility] Comment on above: Order Comment: Speci men Type: BLOOD SPECIMEN Ordering Facility: [facility] Address: [address] [place] [address] Performed By: #### 3 3762-6 #### [facility] CLIA [id number] [address] [place] [address] [place] Creatinine and Glomerular filtration rate.predicted panel (S/P/Bld) 43 mL/min/1.73m??? Low >=60 [facility] Comment on above: Order Comment: Speci men Type: BLOOD SPECIMEN Ordering Facility: [facility] Address: [address] [place] [address] Result Comment: Mira mated Glomerular Filtration Rate [...] GFR. Performed By: #### 3 3762-6 #### [facility] CLIA [id number] [address] [place] [address] [place] Glucose [Mass/Vol] 147 mg/dL High 74-99 [facility] Comment on above: Order Comment: Annie ricci Type: BLOOD SPECIMEN Ordering Facility: [facility] Address: [address] [place] [address] Result Comment: The [place] Diabetes Association (ADA) provides guidance for cutoff [...] Standards of Medical Care in Diabetes 2016, [place] [employer]. Diabetes Care. 2016.39(Suppl 1). Performed By: #### 3 3762-6 #### [facility] CLIA [id number] [address] [place] [address] [place] Potassium [Moles/Vol] 4.8 mmol/L Normal 3.7-5.1 [facility] Comment on above: Order Comment: Annie ricci Type: BLOOD SPECIMEN Ordering Facility: [facility] Address: [address] [place] [address] Performed By: #### 3 3762-6 #### [facility] CLIA [id number] [address] [place] [address] [place] Protein [Mass/Vol] 7.2 g/dL Normal 6.3-8.0 [facility] Comment on above: Order Comment: Annie ricci Type: BLOOD SPECIMEN Ordering Facility: [facility] Address: [address] [place] [address] Performed By: #### 3 3762-6 #### [facility] CLIA [id number] [address] [place] [address] [place] Sodium [Moles/Vol] 131 mmol/L Low 136-144 [facility] Comment on above: Order Comment: Speci men Type: BLOOD SPECIMEN Ordering Facility: [facility] Address: [address] [place] [address] Performed By: #### 3 3762-6 #### [facility] CLIA [id number] [address] [place] [address] [place] Urea nitrogen [Mass/Vol] 34 mg/dL High 7-21 [facility] Comment on above: Order Comment: Speci men Type: BLOOD SPECIMEN Ordering Facility: [facility] Address: [address] [place] [address] Performed By: #### 3 3762-6 #### [facility] CLIA [id number] [address] [place] [address] [place] Lipid 1996 panelon 4 Cholesterol [Mass/Vol] 98 mg/dL Normal <200 [facility] Comment on above: Order Comment: Speci men Type: BLOOD SPECIMEN Ordering Facility: [facility] Address: [address] [place] [address] Result Comment: <200 mg/dL, Desirable 200-239 mg/dL, Borderline high >239 mg/dL, High Performed By: #### 2 4331-1 #### [facility] CLIA [id number] [address] [place] [address] [place] [facility] CLIA [id number] [address] [place] [address] [place] #### 05282-0 #### [facility] CLIA [id number] [address] [facility] [place] [address] [place] Cholesterol in HDL [Mass/Vol] 34 mg/dL Low >39 [facility] Comment on above: Order Comment: Speci men Type: BLOOD SPECIMEN Ordering Facility: [facility] Address: [address] [place] [id number] Result Comment: 40-5 9 mg/dL, Acceptable >59 mg/dL, High: Negative risk factor for coronary heart disease <40 mg/dL, Low: Positive risk factor for coronary heart disease Performed By: #### 2 4331-1 #### [facility] CLIA [id number] [address] [place], [place] [address] [place] [address] [place] [facility] CLIA [id number] [address] [place] [address] [place] #### 99866-8 #### [facility] CLIA [id number] [facility] [place] [address] [place] Cholesterol in LDL [Mass/Vol] 51 mg/dL Normal <100 [facility] Comment on above: Order Comment: Speci men Type: BLOOD SPECIMEN Ordering Facility: [facility] Address: [address] [place] [address] Result Comment: <100 mg/dL, Optimal 100-129 mg/dL, Near optimal/above optimal 130-159 mg/dL, Borderline high 160-189 mg/dL, High >189 mg/dL, Very high Secondary prevention optimal LDL Cholesterol levels are recommended to be < 70 mg/dL Performed By: #### 2 4331-1 #### [facility] CLIA [id number] [address] [place] [address] [place] [facility] CLIA [id number] [address] [place] [address] [place] #### 92469-9 #### [facility] CLIA [id number] [address] [place] [address] [place] Cholesterol in LDL/Cholesterol in HDL [Mass ratio] 1.50 {ratio} Normal <2.54 [facility] Comment on above: Order Comment: Speci men Type: BLOOD SPECIMEN Ordering Facility: [facility] Address: [address] [place] [address] Result Comment: Refe rence: 1. National Cholesterol Education Program ATP III Guideline At-A-Glance Quick Desk Reference: National Heart, Lung, and Blood [place]. National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 RV Capture Amplitude (volts) 1 V [facility] Thresh RV Capture Duration (ms) 0.4 ms [facility] Thresh RV Sensing Amplitude (mvolts) 13.375 mV [facility] Tracking Rate (bpm) 120 {beats}/min [facility] No Panel Informationon 06-30 BLANK _ [facility] Implant Date 10/21/2020 [facility] PACEMAKER REMOTE CHECKon AV Delay Adaptive Paced Minimum (ms) 180 ms [facility] AV Delay Adaptive Sensed Minimum (ms) 150 ms [facility] AV Delay Adaptive Status DISABLED [facility] Battery Voltage (volts) 3.03 V [facility] Pavan RA Pacing Amplitude (volts) 1.5 V [facility] Pavan RA Pacing Polarity BI [facility] Pavan RA Pacing Pulse Width (ms) 0.4 ms [facility] Pavan RA Sensing Amplitude (mvolts) 0.3 mV [facility] Pavan RA Sensing Blanking Period (ms) 150 ms [facility] Pavan RA Sensing Polarity BI [facility] Pavan RA Sensing Refractory Period (ms) Auto [facility] Pavan RV Pacing Amplitude (volts) 2.5 V [facility] Pavan RV Pacing Polarity BI [facility] Pavan RV Pacing Pulse Width (ms) 0.4 ms [facility] Pavan RV Sensing Amplitude (mvolts) 0.9 mV [facility] Pavan RV Sensing Blanking Period (ms) 200 ms [facility] Pavan RV Sensing Polarity BI [facility] Hysteresis Rate (bpm) DISABLED [facility] Lead1 Mfg MDT [facility] Lead2 Mfg MDT [facility] Location RV [facility] Location RA [facility] Lower Rate (bpm) 60 {beats}/min [facility] Max Sensor Rate (bmp) 120 {beats}/min [facility] Model [id number] [place] XT DR MRI [facility] Model 3830 SelectSecure MR I SureManish [facility] Model 5076 CapSureFix Novus [facility] PM-Device Mfg MDT [facility] PM-Percent Pacing (A) 53.59 % [facility] PM-Percent Pacing (V) 11.72 % [facility] PM-PMT Intervention ENABLED [facility] PM-PVC Intervention ENABLED [facility] PM-Rate Modulation Acceleration Reaction 30 s [facility] PM-Rate Modulation ADL Rate (bpm) 95 {beats}/min [facility] PM-Rate Modulation Deceleration Exercise [facility] PM-Rate Modulation Hood 3 [facility] PM-Rate Modulation Threshold Low [facility] RA Bipolar Impedance ohms 456 ohm [facility] RA Unipolar Impedance ohms 304 ohm [facility] RV Bipolar Impedance ohms 437 ohm [facility] RV Unipolar Impedance 323 ohm [facility] Serial Number [id number] [facility] Serial Number [id number] [facility] Serial Number [id number] [facility] Thresh RA Capture Amplitude (volts) 0.5 V [facility] Thresh RA Capture Duration (ms) 0.4 ms [facility] Thresh RA Sensing Amplitude (mvolts) 0.375 mV [facility] Thresh RV Capture Amplitude (volts) 1.125 V [facility] Thresh RV Capture Duration (ms) 0.4 ms [facility] Thresh RV Sensing Amplitude (mvolts) 9.25 mV [facility] Tracking Rate (bpm) 120 {beats}/min [facility] UA DIP, URINE (POC)on 2021 BILIRUBIN UA (POCT) Negative Negative [facility] CLARITY UA (POCT) Clear [facility] COLOR UA (POCT) Yellow [facility] GLUCOSE UA (POCT) Negative Negative mg/dL [facility] HEMOGLOBIN/BLOOD UA (POCT) Negative Negative [facility] KETONE UA (POCT) Negative Negative mg/dL [facility] LEUKOCYTES UA (POCT) Negative Negative [facility] NITRITE UA (POCT) Negative Negative [facility] PH UA (POCT) 5.5 4.5 - 8.0 [facility] Protein Ql (U) 30 mg/dL Abnormal Negative mg/dL [facility] SPECIFIC GRAVITY UA (POCT) 1.020 1.005 - 1.030 [facility] UROBILINOGEN UA (POCT) 0.2 E.U./dL Cat l E.U./dL [facility] CBC W Auto Differential pane l (Bld)on 04-06-2022 Abs Immature Gran 0.03 k/uL <0.10 k/uL [facility] Basophils (Bld) [#/Vol] 0.08 10*3/uL <0.11 k/uL [facility] Basophils/100 WBC (Bld) 1.1 % [facility] Differential cell count method Nom (Bld) Auto [facility] Eosinophils (Bld) [#/Vol] 0.11 10*3/uL <0.46 k/uL [facility] Eosinophils/100 WBC (Bld) 1.5 % [facility] Erythrocyte distribution width (RBC) [Ratio] 19.9 % High 11.5 - 15.0 % [facility] Hematocrit (Bld) [Volume fraction] 31.3 % Low 36.0 - 46.0 % [facility] Hemoglobin (Bld) [Mass/Vol] 9.2 g/dL Low 11.5 - 15.5 g/dL [facility] Immature Gran % 0.4 % [facility] Lymphocytes (Bld) [#/Vol] 2.05 10*3/uL 1.00 - 4.00 k/uL [facility] Lymphocytes/100 WBC (Bld) 27.9 % [facility] MCH (RBC) [Entitic mass] 24.5 pg Low 26.0 - 34.0 pg [facility] MCHC (RBC) [Mass/Vol] 29.4 g/dL Low 30.5 - 36.0 g/dL [facility] MCV (RBC) [Entitic vol] 83.5 fL 80.0 - 100.0 fL [facility] Monocytes (Bld) [#/Vol] 0.93 10*3/uL High <0.87 k/uL [facility] Monocytes/100 WBC (Bld) 12.7 % [facility] Neutrophils (Bld) [#/Vol] 4.14 10*3/uL 1.45 - 7.50 k/uL [facility] Neutrophils/100 WBC (Bld) 56.4 % [facility] Nucleated RBC (Bld) [#/Vol] <0.01 k/uL [facility] Nucleated RBC/100 WBC (Bld) [Ratio] 0.0 /100 WBC [facility] Platelet mean volume (Bld) [Entitic vol] 9.8 fL 9.0 - 12.7 fL [facility] Platelets (Bld) [#/Vol] 266 10*3/uL 150 - 400 k/uL [facility] RBC (Bld) [#/Vol] 3.75 10*6/uL Low 3.90 - 5.2 0 m/uL [facility] WBC (Bld) [#/Vol] 7.34 10*3/uL 3.70 - 11. 00 k/uL [facility] FERRITIN BLDon 04-06-2022 Ferritin [Mass/Vol] 27.1 ng/mL 14.7 - 2 05.1 ng/mL [facility] Iron and Iron binding capaci ty panelon 04-06-2022 Iron [Mass/Vol] 26 ug/dL Low 41 - 186 ug/dL [facility] Iron binding capacity [Mass/Vol] 454 ug/dL High 232 - 386 ug/dL [facility] Iron/TIBC [Molar ratio] 5.7 % Low 15.0 - 57.0 % [facility] No Panel Informationon 03-28 BLANK _ [facility] Implant Date 10/21/2020 [facility] PACEMAKER REMOTE CHECKon AV Delay Adaptive Paced Minimum (ms) 180 ms [facility] AV Delay Adaptive Sensed Minimum (ms) 150 ms [facility] AV Delay Adaptive Status DISABLED [facility] Battery Voltage (volts) 3.03 V [facility] Pavan RA Pacing Amplitude (volts) 1.5 V [facility] Pavan RA Pacing Polarity BI [facility] Pavan RA Pacing Pulse Width (ms) 0.4 ms [facility] Pavan RA Sensing Amplitude (mvolts) 0.3 mV [facility] Pavan RA Sensing Blanking Period (ms) 150 ms [facility] Pavan RA Sensing Polarity BI [facility] Pavan RA Sensing Refractory Period (ms) Auto [facility] Pavan RV Pacing Amplitude (volts) 2 V [facility] Pavan RV Pacing Polarity BI [facility] Pavan RV Pacing Pulse Width (ms) 0.4 ms [facility] Pavan RV Sensing Amplitude (mvolts) 0.9 mV [facility] Pavan RV Sensing Blanking Period (ms) 200 ms [facility] Pavan RV Sensing Polarity BI [facility] [facility] Hysteresis Rate (bpm) DISABLED [facility] Lead1 Mfg T [facility] Lead2 Karlg BRANDEE [facility] Location RV [facility] Location RA [facility] Lower Rate (bpm) 60 {beats}/min [facility] Max Sensor Rate (bmp) 120 {beats}/min [facility] Model [id number] [place] XT DR MRI Cl [facility] Model 3830 SelectSecure MR I SureScan [facility] Model 5076 CapSureFix [facility] PM-Device Mfg MDT [facility] PM-Percent Pacing (A) 13.82 % [facility] PM-Percent Pacing (V) 9.69 % [facility] PM-PMT Intervention ENABLED [facility] PM-PVC Intervention ENABLED [facility] PM-Rate Modulation Acceleration Reaction 30 s [facility] PM-Rate Modulation ADL Rate (bpm) 95 {beats}/min [facility] PM-Rate Modulation Deceleration Exercise [facility] PM-Rate Modulation Hood 3 [facility] PM-Rate Modulation Threshold Low [facility] RA Bipolar Impedance ohms 437 ohm [facility] RA Unipolar Impedance ohms 285 ohm [facility] RV Bipolar Impedance ohms 418 ohm [facility] RV Unipolar Impedance 323 ohm [facility] Serial Number [id number] [facility] Serial Number [id number] [facility] Serial Number [id number] [facility] Thresh RA Capture Amplitude (volts) 0.75 V [facility] Thresh RA Capture Duration (ms) 0.4 ms [facility] Thresh RA Sensing Amplitude (mvolts) 0.25 mV [facility] Thresh RV Capture Amplitude (volts) 1 V [facility] Thresh RV Capture Duration (ms) 0.4 ms [facility] Thresh RV Sensing Amplitude (mvolts) 13.375 mV [facility] Tracking Rate (bpm) 120 {beats}/min [facility] ECHO TRANSESOPHAGEALon 03-03 [facility] No Panel Informationon 03-03 BLANK _ [facility] Implant Date 10/21/2020 [facility] PACEMAKER CLINIC CHECKon AV Delay Adaptive Paced Minimum (ms) 180 ms [facility] AV Delay Adaptive Sensed Minimum (ms) 150 ms [facility] AV Delay Adaptive Status DISABLED [facility] Battery Voltage (volts) 3.03 V [facility] Pavan RA Pacing Amplitude (volts) 1.5 V [facility] Pavan RA Pacing Polarity BI [facility] Pavan RA Pacing Pulse Width (ms) 0.4 ms [facility] Pavan RA Sensing Amplitude (mvolts) 0.3 mV [facility] Pavan RA Sensing Blanking Period (ms) 150 ms [facility] Pavan RA Sensing Polarity BI [facility] Pavan RA Sensing Refractory Period (ms) Auto [facility] Pavan RV Pacing Amplitude (volts) 2 V [facility] Pavan RV Pacing Polarity BI [facility] Pavan RV Pacing Pulse Width (ms) 0.4 ms [facility] Pavan RV Sensing Amplitude (mvolts) 0.9 mV [facility] Pavan RV Sensing Blanking Period (ms) 200 ms [facility] Pavan RV Sensing Polarity BI [facility] Hysteresis Rate (bpm) DISABLED [facility] Lead1 Mfg MDT [facility] Lead2 Mfg MDT [facility] Location RV [facility] Location RA [facility] Lower Rate (bpm) 60 {beats}/min [facility] Max Sensor Rate (bmp) 120 {beats}/min [facility] Model [id number] [place] XT DR MRI Cl [facility] Model 3830 SelectSecure MR I SureScan [facility] Model 5076 CapSureFix [facility] Pacemaker Dependent? NO [facility] PM-Device Karlg MDT [facility] PM-Percent Pacing (A) 3.4 % [facility] PM-Percent Pacing (V) 14.6 % [facility] PM-PMT Intervention ENABLED [facility] PM-PVC Intervention ENABLED [facility] PM-Rate Modulation Acceleration Reaction 30 s [facility] PM-Rate Modulation ADL Rate (bpm) 95 {beats}/min [facility] PM-Rate Modulation Deceleration Exercise [facility] PM-Rate Modulation Hood 3 [facility] PM-Rate Modulation Threshold Low [facility] RA Bipolar Impedance ohms 456 ohm [facility] RA Unipolar Impedance ohms 285 ohm [facility] Rhythm Atrial Fibrillation [facility] RV Bipolar Impedance ohms 437 ohm [facility] RV Unipolar Impedance 342 ohm [facility] Serial Number [id number] [facility] Serial Number [id number] [facility] Serial Number [id number] [facility] Thresh RA Capture Amplitude (volts) 0.75 V [facility] Thresh RA Capture Duration (ms) 0.4 ms [facility] Thresh RA Sensing Amplitude (mvolts) 0.375 mV [facility] Thresh RV Capture Amplitude (volts) 0.875 V [facility] Thresh RV Capture Duration (ms) 0.4 ms [facility] Thresh RV Sensing Amplitude (mvolts) 12.75 mV [facility] Tracking Rate (bpm) 120 {beats}/min [facility] HEMOGLOBIN (HGB)on 2 Hemoglobin (Bld) [Mass/Vol] 8.1 g/dL Low 11.5 - 15.5 g/dL [facility] Hematocrit Auto (Bld) [Volum e fraction]on 02-20-2022 Hematocrit (Bld) [Volume fraction] 26.4 % Low 36.0 - 46.0 % [facility] No Panel Informationon 01-09 BLANK _ [facility] Implant Date 10/21/2020 [facility] PACEMAKER CLINIC CHECKon AV Delay Adaptive Paced Minimum (ms) 180 ms [facility] AV Delay Adaptive Sensed Minimum (ms) 150 ms [facility] AV Delay Adaptive Status DISABLED [facility] Battery Voltage (volts) 3.04 V [facility] Pavan RA Pacing Amplitude (volts) 1.5 V [facility] Pavan RA Pacing Polarity BI [facility] Pavan RA Pacing Pulse Width (ms) 0.4 ms [facility] Pavan RA Sensing Amplitude (mvolts) 0.3 mV [facility] Pavan RA Sensing Blanking Period (ms) 150 ms [facility] Pavan RA Sensing Polarity BI [facility] Pavan RA Sensing Refractory Period (ms) Auto [facility] Pavan RV Pacing Amplitude (volts) 2 V [facility] Pavan RV Pacing Polarity BI [facility] Pavan RV Pacing Pulse Width (ms) 0.4 ms [facility] Pavan RV Sensing Amplitude (mvolts) 0.9 mV [facility] Pavan RV Sensing Blanking Period (ms) 200 ms [facility] Pavan RV Sensing Polarity BI [facility] Hysteresis Rate (bpm) DISABLED [facility] Lead1 Mfg MDT [facility] Lead2 Mfg MDT [facility] Location RV [facility] Location RA [facility] Lower Rate (bpm) 60 {beats}/min [facility] Max Sensor Rate (bmp) 120 {beats}/min [facility] Model [id number] [place] XT DR MRI Cl [facility] Model 3830 SelectSecure MR I SureScan [facility] Model 5076 CapSureFix [facility] Pacemaker Dependent? NO [facility] PM-Device Mfg T [facility] PM-Percent Pacing (A) 32.01 % [facility] PM-Percent Pacing (V) 13.19 % [facility] PM-PMT Intervention ENABLED [facility] PM-PVC Intervention ENABLED [facility] PM-Rate Modulation Acceleration Reaction 30 s [facility] PM-Rate Modulation ADL Rate (bpm) 95 {beats}/min [facility] PM-Rate Modulation Deceleration Exercise [facility] PM-Rate Modulation Hood 3 [facility] PM-Rate Modulation Threshold Low [facility] RA Bipolar Impedance ohms 456 ohm [facility] RA Unipolar Impedance ohms 285 ohm [facility] Rhythm Atrial Fibrillation [facility] RV Bipolar Impedance ohms 437 ohm [facility] RV Unipolar Impedance 342 ohm [facility] Serial Number [id number] [facility] Serial Number [id number] [facility] Serial Number [id number] [facility] Thresh RA Capture Amplitude (volts) 0.75 V [facility] Thresh RA Capture Duration (ms) 0.4 ms [facility] Thresh RA Sensing Amplitude (mvolts) 0.375 mV [facility] Thresh RV Capture Amplitude (volts) 1 V [facility] Thresh RV Capture Duration (ms) 0.4 ms [facility] Thresh RV Sensing Amplitude (mvolts) 13.6 mV [facility] Tracking Rate (bpm) 120 {beats}/min [facility] EGD DIAGNOSTICon 01-02-2022 [facility] CBC panel Auto (Bld)on 12-26 Erythrocyte distribution width (RBC) [Ratio] 16.8 % High 11.5 - 15.0 % [facility] Hematocrit (Bld) [Volume fraction] 28.2 % Low 36.0 - 46.0 % [facility] Hemoglobin (Bld) [Mass/Vol] 8.1 g/dL Low 11.5 - 15.5 g/dL [facility] MCH (RBC) [Entitic mass] 24.5 pg Low 26.0 - 34.0 pg [facility] MCHC (RBC) [Mass/Vol] 28.7 g/dL Low 30.5 - 36.0 g/dL [facility] MCV (RBC) [Entitic vol] 85.5 fL 80.0 - 100.0 fL [facility] Nucleated RBC (Bld) [#/Vol] 10*3/uL <0.01 k/uL [facility] Platelet mean volume (Bld) [Entitic vol] 10.3 fL 9.0 - 12.7 fL [facility] Platelets (Bld) [#/Vol] 248 10*3/uL 150 - 400 k/uL [facility] RBC (Bld) [#/Vol] 3.30 10*6/uL Low 3.90 - 5.2 0 m/uL [facility] WBC (Bld) [#/Vol] 10.54 10*3/uL 3.70 - 11 .00 k/uL [facility] CBC panel Auto (Bld)on 12-15 Erythrocyte distribution width (RBC) [Ratio] 15.7 % High 11.5 - 15.0 % [facility] Hematocrit (Bld) [Volume fraction] 31.0 % Low 36.0 - 46.0 % [facility] Hemoglobin (Bld) [Mass/Vol] 9.3 g/dL Low 11.5 - 15.5 g/dL [facility] MCH (RBC) [Entitic mass] 24.4 pg Low 26.0 - 34.0 pg [facility] MCHC (RBC) [Mass/Vol] 30.0 g/dL Low 30.5 - 36.0 g/dL [facility] MCV (RBC) [Entitic vol] 81.4 fL 80.0 - 100.0 fL [facility] Nucleated RBC (Bld) [#/Vol] 10*3/uL <0.01 k/uL [facility] Platelet mean volume (Bld) [Entitic vol] 10.0 fL 9.0 - 12.7 fL [facility] Platelets (Bld) [#/Vol] 273 10*3/uL 150 - 400 k/uL [facility] RBC (Bld) [#/Vol] 3.81 10*6/uL Low 3.90 - 5.2 0 m/uL [facility] WBC (Bld) [#/Vol] 9.78 10*3/uL 3.70 - 11. 00 k/uL [facility] HbA1c (Bld)on 12-15-2021 Average glucose Estimated from glycated hemoglobin (Bld) [Mass/Vol] 157 mg/dL [facility] HbA1c (Bld) [Mass fraction] 7.1 % High 4.3 - 5.6 % [facility] Lipid 1996 panelon 2 Cholesterol [Mass/Vol] 121 mg/dL <200 mg/dL [facility] Cholesterol in HDL [Mass/Vol] 43 mg/dL >39 mg/dL [facility] Cholesterol in LDL [Mass/Vol] 59 mg/dL <100 mg/dL [facility] Cholesterol in LDL/Cholesterol in HDL [Mass ratio] 1.37 {ratio} <2.54 [facility] Cholesterol in VLDL [Mass/Vol] 19 mg/dL <30 mg/dL [facility] Cholesterol non HDL [Mass/Vol] 78 mg/dL <130 mg/dL [facility] Cholesterol.total/Chol esterol in HDL [Mass ratio] 2.81 {ratio} <5.10 [facility] Fasting Time 12 hrs [facility] Triglyceride [Mass/Vol] 93 mg/dL <150 mg/dL [facility] XR HIP GENERAL 3V PELV/AP/LA T LEFTon 12-15-2021 [facility] XR Pelvis and Hip - left AP and Lateral frogon 12-15-2021 IMPRESSION: NEGATIVE HIP. Machine Tool Rebuilder: PSCB Transcribe Date/Time: Dec 15 2021 12:36P [...] relevant examinations available for comparison within the [facility] Imaging Archives. RESULT: Supine radiograph of the pelvis as well as AP and frogleg views of the left hip demonstrate the bony pelvic ring intact. The hips are bilaterally symmetric without fracture or dislocation. No acute bony process is noted. The soft tissues demonstrate aortoiliac calcification [id number] _DIVISION OF RADIOLOGY Provider, [facility] * * *Final Report* * [...] relevant examinations available for comparison within the [facility]. RESULT: Supine radiograph of the pelvis as well as AP and frogleg views of the left hip demonstrate the bony pelvic ring intact. The hips are bilaterally symmetric without fracture or dislocation. No acute bony process is noted. The soft tissues demonstrate aortoiliac calcification IMPRESSION IMPRESSION: NEGATIVE HIP. Machine Tool Rebuilder: PSCB Transcribe Date/Time: Dec 15 2021 12:36P Dictated by : JUAN MOSCOSO MD This examination was interpreted and the report reviewed and electronically signed by: JUAN MOSCOSO MD on Dec 15 2021 12:38PM EST [facility] Radiology Study observation (narrative) [facility] XR Pelvis and Hip - left AP and Lateral frogOrdered By: [facility] Provider on 12-15-2021 [facility] No Panel Informationon 12-13 BLANK _ [facility] Implant Date 10/21/2020 [facility] PACEMAKER REMOTE CHECKon AV Delay Adaptive Paced Minimum (ms) 180 ms [facility] AV Delay Adaptive Sensed Minimum (ms) 150 ms [facility] AV Delay Adaptive Status DISABLED [facility] Battery Voltage (volts) 3.04 V [facility] Pavan RA Pacing Amplitude (volts) 1.5 V [facility] Pavan RA Pacing Polarity BI [facility] Pavan RA Pacing Pulse Width (ms) 0.4 ms [facility] Pavan RA Sensing Amplitude (mvolts) 0.3 mV [facility] Pavan RA Sensing Blanking Period (ms) 150 ms [facility] Pavan RA Sensing Polarity BI [facility] Pavan RA Sensing Refractory Period (ms) Auto [facility] Pavan RV Pacing Amplitude (volts) 2 V [facility] Pavan RV Pacing Polarity BI [facility] Pavan RV Pacing Pulse Width (ms) 0.4 ms [facility] Pavan RV Sensing Amplitude (mvolts) 0.9 mV [facility] Pavan RV Sensing Blanking Period (ms) 200 ms [facility] Pavan RV Sensing Polarity BI [facility] Hysteresis Rate (bpm) DISABLED [facility] Lead1 Mfg MDT [facility] Lead2 Mfg MDT [facility] Location RV [facility] Location RA [facility] Lower Rate (bpm) 60 {beats}/min [facility] Max Sensor Rate (bmp) 120 {beats}/min [facility] Model [id number] [place] XT DR MRI Cl [facility] Model 3830 SelectSecure MR I SureScan [facility] Model 5076 CapSureFix [facility] PM-Device Mfg MDT [facility] PM-Percent Pacing (A) 0.2 % [facility] PM-Percent Pacing (V) 19.48 % [facility] PM-PMT Intervention ENABLED [facility] PM-PVC Intervention ENABLED [facility] PM-Rate Modulation Acceleration Reaction 30 s [facility] PM-Rate Modulation ADL Rate (bpm) 95 {beats}/min [facility] PM-Rate Modulation Deceleration Exercise [facility] PM-Rate Modulation Hood 3 [facility] PM-Rate Modulation Threshold Low [facility] RA Bipolar Impedance ohms 475 ohm [facility] RA Unipolar Impedance ohms 285 ohm [facility] RV Bipolar Impedance ohms 418 ohm [facility] RV Unipolar Impedance 323 ohm [facility] Serial Number [id number] [facility] Serial Number [id number] [facility] Serial Number [id number] [facility] Thresh RA Capture Amplitude (volts) 0.75 V [facility] Thresh RA Capture Duration (ms) 0.4 ms [facility] Thresh RA Sensing Amplitude (mvolts) 0.5 mV [facility] Thresh RV Capture Amplitude (volts) 0.875 V [facility] Thresh RV Capture Duration (ms) 0.4 ms [facility] Thresh RV Sensing Amplitude (mvolts) 12.625 mV [facility] Tracking Rate (bpm) 120 {beats}/min [facility] No Panel Informationon 09-26 BLANK _ [facility] Implant Date 10/21/2020 [facility] PACEMAKER REMOTE CHECKon AV Delay Adaptive Paced Minimum (ms) 180 ms [facility] AV Delay Adaptive Sensed Minimum (ms) 150 ms [facility] AV Delay Adaptive Status DISABLED [facility] Battery Voltage (volts) 3.06 V [facility] Pavan RA Pacing Amplitude (volts) 1.5 V [facility] Pavan RA Pacing Polarity BI [facility] Pavan RA Pacing Pulse Width (ms) 0.4 ms [facility] Pavan RA Sensing Amplitude (mvolts) 0.3 mV [facility] Pavan RA Sensing Blanking Period (ms) 150 ms [facility] Pavan RA Sensing Polarity BI [facility] Pavan RA Sensing Refractory Period (ms) Auto [facility] Pavan RV Pacing Amplitude (volts) 2 V [facility] Pavan RV Pacing Polarity BI [facility] Pavan RV Pacing Pulse Width (ms) 0.4 ms [facility] Pavan RV Sensing Amplitude (mvolts) 0.9 mV [facility] Pavan RV Sensing Blanking Period (ms) 200 ms [facility] Pavan RV Sensing Polarity BI [facility] Hysteresis Rate (bpm) DISABLED [facility] Lead1 Mfg MDT [facility] Lead2 Mfg MDT [facility] Location RV [facility] Location RA [facility] Lower Rate (bpm) 60 {beats}/min [facility] Max Sensor Rate (bmp) 120 {beats}/min [facility] Model [id number] [place] XT DR MRI Cl [facility] Model 3830 SelectSecure MR I SureScan [facility] Model 5076 CapSureFix [facility] PM-Device Mfg MDT [facility] PM-Percent Pacing (A) 0.09 % [facility] PM-Percent Pacing (V) 23.44 % [facility] PM-PMT Intervention ENABLED [facility] PM-PVC Intervention ENABLED [facility] PM-Rate Modulation Acceleration Reaction 30 s [facility] PM-Rate Modulation ADL Rate (bpm) 95 {beats}/min [facility] PM-Rate Modulation Deceleration Exercise [facility] PM-Rate Modulation Hood 3 [facility] PM-Rate Modulation Threshold Low [facility] RA Bipolar Impedance ohms 532 ohm [facility] RA Unipolar Impedance ohms 304 ohm [facility] RV Bipolar Impedance ohms 418 ohm [facility] RV Unipolar Impedance 342 ohm [facility] Serial Number [id number] [facility] Serial Number [id number] [facility] Serial Number [id number] [facility] Thresh RA Capture Amplitude (volts) 0.75 V [facility] Thresh RA Capture Duration (ms) 0.4 ms [facility] Thresh RA Sensing Amplitude (mvolts) 0.625 mV [facility] Thresh RV Capture Amplitude (volts) 0.875 V [facility] Thresh RV Capture Duration (ms) 0.4 ms [facility] Thresh RV Sensing Amplitude (mvolts) 12 mV [facility] Tracking Rate (bpm) 120 {beats}/min [facility] PROGRESSon 03-08-2019 PROGRESS HNO ID: [id number] Author: Sheree Logan (Rt) Manolo Elaine Service: Radiology Author Type: Counterintelligence/Humint Specialist Type: Progress Notes Filed: 03/08/2019 2:55 PM [...] RT Echo March 08, 2019 2:55 PM [facility] XR CHEST 2V FRONTAL/LATon XR [...] mm nodule right lung base. 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 However, the mobile MRI scanner was not capable of performing the needed MR angiographic sequences. All charges related to the examination was canceled. IMPRESSION: Nondiagnostic MRA study as noted with all charges canceled. The study is to be rescheduled at [facility] main [place]. Normal [facility] Vital Signs Date Time Vital Sign Value Performing Clinician Jabari rogers 01-01-2025 10:290400 Body height 157.5 cm Carla Burdick MD Work Phone: [facility] 01-01-2025 10:29-0400 Body mass index (BMI) [Ratio] 27.18 kg/m2 Carla Burdick MD Work Phone: [facility] 01-01-2025 10:29-0400 Body weight 67.41 kg Carla Burdick MD Work Phone: [facility] 01-01-2025 10:29-0400 Diastolic blood pressure 60 mm[Hg] Carla Burdick MD Work Phone: [facility] 01-01-2025 10:29-0400 Heart rate 84 /min Carla Burdick MD Work Phone: [facility] 01-01-2025 10:29-0400 Respiratory rate 18 /min Carla Burdick MD Work Phone: [facility] 01-01-2025 10:29-0400 SaO2% (BldA) [Mass fraction] 100 % Carla Burdick MD Work Phone: [facility] 01-01-2025 10:29-0400 Systolic blood pressure 156 mm[Hg] Carla Burdick MD Work Phone: [facility] 12-20-2024 08:29-0400 Body mass index (BMI) [Ratio] 27.18 kg/m2 Lars Silva DO Work Phone: [facility] 12-20-2024 08:29-0400 Body weight 67.4 kg Lars Silva DO Work Phone: [facility] 12-20-2024 08:29-0400 Diastolic blood pressure 75 mm[Hg] Lars Silva DO Work Phone: [facility] 12-20-2024 08:29-0400 Heart rate 77 /min Lars Silva DO Work Phone: [facility] 12-20-2024 08:29-0400 SaO2% (BldA) [Mass fraction] 100 % Lars Silva DO Work Phone: [facility] 12-20-2024 08:29-0400 Systolic blood pressure 154 mm[Hg] Lars Silva DO Work Phone: [facility] 12-19-2024 11:38-0400 Diastolic blood pressure 54 mm[Hg] Albin Aurin THERAPEUTIC DIETITIAN.MANPOWER DEVELOPMENT SPECIALIST MANAGER Work Phone: [facility] Comment on above: post IV lasix 12-19-2024 11:38-0400 Systolic blood pressure 157 mm[Hg] Albin Aurin THERAPEUTIC DIETITIAN.MANPOWER DEVELOPMENT SPECIALIST MANAGER Work Phone: [facility] Comment on above: post IV lasix 12-19-2024 10:56-0400 Body mass index (BMI) [Ratio] 26.34 kg/m2 Albin Aurin THERAPEUTIC DIETITIAN.MANPOWER DEVELOPMENT SPECIALIST MANAGER Work Phone: [facility] 12-19-2024 10:56-0400 Body weight 65.32 kg Albin Aurin THERAPEUTIC DIETITIAN.MANPOWER DEVELOPMENT SPECIALIST MANAGER Work Phone: [facility] 12-19-2024 10:56-0400 Heart rate 79 /min Albin Aurin THERAPEUTIC DIETITIAN.MANPOWER DEVELOPMENT SPECIALIST MANAGER Work Phone: [facility] 12-19-2024 10:56-0400 SaO2% (BldA) [Mass fraction] 99 % Albin Aurin THERAPEUTIC DIETITIAN.MANPOWER DEVELOPMENT SPECIALIST MANAGER Work Phone: [facility] 11-20-2024 08:06-0400 Body height 157.5 cm Carla Burdick MD Work Phone: [facility] 11-20-2024 08:06-0400 Body mass index (BMI) [Ratio] 26.3 kg/m2 Carla Burdick MD Work Phone: [facility] 11-20-2024 08:06-0400 Body weight 65.23 kg Carla Burdick MD Work Phone: [facility] 11-20-2024 08:06-0400 Diastolic blood pressure 62 mm[Hg] Carla Burdick MD Work Phone: [facility] 11-20-2024 08:06-0400 Heart rate 84 /min Carla Burdick MD Work Phone: [facility] 11-20-2024 08:06-0400 Respiratory rate 12 /min Carla Burdick MD Work Phone: [facility] 11-20-2024 08:06-0400 SaO2% (BldA) [Mass fraction] 99 % Carla Burdick MD Work Phone: [facility] 11-20-2024 08:06-0400 Systolic blood pressure 154 mm[Hg] Carla Burdick MD Work Phone: [facility] 11-06-2024 15:03-0400 Body height 157.5 cm Carla Burdick MD Work Phone: [facility] 11-06-2024 15:03-0400 Body mass index (BMI) [Ratio] 27.8 kg/m2 Carla Burdick MD Work Phone: [facility] 11-06-2024 15:03-0400 Body weight 68.95 kg Carla Burdick MD Work Phone: [facility] 11-06-2024 15:03-0400 Diastolic blood pressure 54 mm[Hg] Carla Burdick MD Work Phone: [facility] 11-06-2024 15:03-0400 Heart rate 68 /min Carla Burdick MD Work Phone: [facility] 11-06-2024 15:03-0400 Respiratory rate 12 /min Carla Burdick MD Work Phone: [facility] 11-06-2024 15:03-0400 SaO2% (BldA) [Mass fraction] 100 % Carla Burdick MD Work Phone: [facility] 11-06-2024 15:03-0400 Systolic blood pressure 134 mm[Hg] Carla Burdick MD Work Phone: [facility] 11-03-2024 10:06-0400 Diastolic blood pressure 44 mm[Hg] Albin Aurin THERAPEUTIC DIETITIAN.MANPOWER DEVELOPMENT SPECIALIST MANAGER Work Phone: [facility] 11-03-2024 10:06-0400 Systolic blood pressure 121 mm[Hg] Albin Aurin THERAPEUTIC DIETITIAN.MANPOWER DEVELOPMENT SPECIALIST MANAGER Work Phone: [facility] 11-03-2024 08:56-0400 Body mass index (BMI) [Ratio] 26.89 kg/m2 Albin Aurin THERAPEUTIC DIETITIAN.MANPOWER DEVELOPMENT SPECIALIST MANAGER Work Phone: [facility] 11-03-2024 08:56-0400 Body weight 66.68 kg Albin Aurin THERAPEUTIC DIETITIAN.MANPOWER DEVELOPMENT SPECIALIST MANAGER Work Phone: [facility] 11-03-2024 08:56-0400 Heart rate 66 /min Albin Aurin THERAPEUTIC DIETITIAN.MANPOWER DEVELOPMENT SPECIALIST MANAGER Work Phone: [facility] 11-03-2024 08:56-0400 SaO2% (BldA) [Mass fraction] 100 % Albin Aurin THERAPEUTIC DIETITIAN.MANPOWER DEVELOPMENT SPECIALIST MANAGER Work Phone: [facility] 10-31-2024 11:09-0400 Body mass index (BMI) [Ratio] 25.97 kg/m2 Shaye Domingo THERAPEUTIC DIETITIAN.MANPOWER DEVELOPMENT SPECIALIST MANAGER Work Phone: [facility] 10-31-2024 11:09-0400 Body weight 64.41 kg Shaye Domingo THERAPEUTIC DIETITIAN.MANPOWER DEVELOPMENT SPECIALIST MANAGER Work Phone: [facility] 10-31-2024 11:09-0400 Diastolic blood pressure 68 mm[Hg] Shaye Domingo THERAPEUTIC DIETITIAN.MANPOWER DEVELOPMENT SPECIALIST MANAGER Work Phone: [facility] 10-31-2024 11:09-0400 Heart rate 84 /min Shaye Domingo THERAPEUTIC DIETITIAN.MANPOWER DEVELOPMENT SPECIALIST MANAGER Work Phone: [facility] 10-31-2024 11:09-0400 Systolic blood pressure 147 mm[Hg] Shaye Domingo THERAPEUTIC DIETITIAN.MANPOWER DEVELOPMENT SPECIALIST MANAGER Work Phone: [facility] 04-07-2024 09:30-0400 Body mass index (BMI) [Ratio] 25.06 kg/m2 Albin Aurin THERAPEUTIC DIETITIAN.MANPOWER DEVELOPMENT SPECIALIST MANAGER Work Phone: [facility] 04-07-2024 09:30-0400 Body weight 62.14 kg Albin Aurin THERAPEUTIC DIETITIAN.MANPOWER DEVELOPMENT SPECIALIST MANAGER Work Phone: [facility] 04-07-2024 09:30-0400 Diastolic blood pressure 47 mm[Hg] Albin Aurin THERAPEUTIC DIETITIAN.MANPOWER DEVELOPMENT SPECIALIST MANAGER Work Phone: [facility] 04-07-2024 09:30-0400 Heart rate 91 /min Albin Aurin THERAPEUTIC DIETITIAN.MANPOWER DEVELOPMENT SPECIALIST MANAGER Work Phone: [facility] 04-07-2024 09:30-0400 SaO2% (BldA) [Mass fraction] 98 % Albin Aurin THERAPEUTIC DIETITIAN.MANPOWER DEVELOPMENT SPECIALIST MANAGER Work Phone: [facility] 04-07-2024 09:30-0400 Systolic blood pressure 142 mm[Hg] Albin Aurin THERAPEUTIC DIETITIAN.MANPOWER DEVELOPMENT SPECIALIST MANAGER Work Phone: [facility] 01-17-2024 09:50-0400 Body height 157.5 cm Carla Burdick MD Work Phone: [facility] 01-17-2024 09:50-0400 Body mass index (BMI) [Ratio] 26.92 kg/m2 Carla Burdick MD Work Phone: [facility] 01-17-2024 09:50-0400 Body weight 66.77 kg Carla Burdick MD Work Phone: [facility] 01-17-2024 09:50-0400 Diastolic blood pressure 59 mm[Hg] Carla Burdick MD Work Phone: [facility] 01-17-2024 09:50-0400 Heart rate 64 /min Carla Burdick MD Work Phone: [facility] 01-17-2024 09:50-0400 SaO2% (BldA) [Mass fraction] 99 % Carla Burdick MD Work Phone: [facility] 01-17-2024 09:50-0400 Systolic blood pressure 157 mm[Hg] Carla Burdick MD Work Phone: [facility] 12-07-2023 11:46-0400 Diastolic blood pressure 76 mm[Hg] Deysi Haagen THERAPEUTIC DIETITIAN.MANPOWER DEVELOPMENT SPECIALIST MANAGER Work Phone: [facility] 12-07-2023 11:46-0400 Heart rate 68 /min Deysi Haagen THERAPEUTIC DIETITIAN.MANPOWER DEVELOPMENT SPECIALIST MANAGER Work Phone: [facility] 12-07-2023 11:46-0400 Respiratory rate 16 /min Deysi Haagen THERAPEUTIC DIETITIAN.MANPOWER DEVELOPMENT SPECIALIST MANAGER Work Phone: [facility] 12-07-2023 11:46-0400 SaO2% (BldA) [Mass fraction] 97 % Deysi Haagen THERAPEUTIC DIETITIAN.MANPOWER DEVELOPMENT SPECIALIST MANAGER Work Phone: [facility] 12-07-2023 11:46-0400 Systolic blood pressure 128 mm[Hg] Deysi Haagen THERAPEUTIC DIETITIAN.MANPOWER DEVELOPMENT SPECIALIST MANAGER Work Phone: [facility] 11-25-2023 10:42-0400 Diastolic blood pressure 37 mm[Hg] Albin Aurin THERAPEUTIC DIETITIAN.MANPOWER DEVELOPMENT SPECIALIST MANAGER Work Phone: [facility] 11-25-2023 10:42-0400 Systolic blood pressure 160 mm[Hg] Albin Aurin THERAPEUTIC DIETITIAN.MANPOWER DEVELOPMENT SPECIALIST MANAGER Work Phone: [facility] 11-25-2023 10:00-0400 Body mass index (BMI) [Ratio] 26.89 kg/m2 Albin Aurin THERAPEUTIC DIETITIAN.MANPOWER DEVELOPMENT SPECIALIST MANAGER Work Phone: [facility] 11-25-2023 10:00-0400 Body weight 66.68 kg Albin Aurin THERAPEUTIC DIETITIAN.MANPOWER DEVELOPMENT SPECIALIST MANAGER Work Phone: [facility] 11-25-2023 10:00-0400 Heart rate 60 /min Albin Aurin THERAPEUTIC DIETITIAN.MANPOWER DEVELOPMENT SPECIALIST MANAGER Work Phone: [facility] 11-25-2023 10:00-0400 SaO2% (BldA) [Mass fraction] 98 % Albin Gu THERAPEUTIC DIETITIAN.MANPOWER DEVELOPMENT SPECIALIST MANAGER Work Phone: [facility] 11-22-2023 09:09-0400 Body mass index (BMI) [Ratio] 27.44 kg/m2 Deysi Haagen THERAPEUTIC DIETITIAN.MANPOWER DEVELOPMENT SPECIALIST MANAGER Work Phone: [facility] 11-22-2023 09:09-0400 Body weight 68.04 kg Deysi Haagen THERAPEUTIC DIETITIAN.MANPOWER DEVELOPMENT SPECIALIST MANAGER Work Phone: [facility] 11-22-2023 09:09-0400 Diastolic blood pressure 76 mm[Hg] Deysi Haagen THERAPEUTIC DIETITIAN.MANPOWER DEVELOPMENT SPECIALIST MANAGER Work Phone: [facility] 11-22-2023 09:09-0400 Heart rate 67 /min Deysi Haagen THERAPEUTIC DIETITIAN.MANPOWER DEVELOPMENT SPECIALIST MANAGER Work Phone: [facility] 11-22-2023 09:09-0400 Respiratory rate 16 /min Deysi Haagen THERAPEUTIC DIETITIAN.MANPOWER DEVELOPMENT SPECIALIST MANAGER Work Phone: [facility] 11-22-2023 09:09-0400 SaO2% (BldA) [Mass fraction] 98 % Deysi Haagen THERAPEUTIC DIETITIAN.MANPOWER DEVELOPMENT SPECIALIST MANAGER Work Phone: [facility] 11-22-2023 09:09-0400 Systolic blood pressure 128 mm[Hg] Deysi Haagen THERAPEUTIC DIETITIAN.MANPOWER DEVELOPMENT SPECIALIST MANAGER Work Phone: [facility] 11-08-2023 16:36-0400 Body mass index (BMI) [Ratio] 29.98 kg/m2 Bere Boykin THERAPEUTIC DIETITIAN.MANPOWER DEVELOPMENT SPECIALIST MANAGER Work Phone: [facility] 11-08-2023 16:36-0400 Body weight 73.17 kg Bere Boykin THERAPEUTIC DIETITIAN.C MANAGER CONFIGURATION Work Phone: [facility] 11-08-2023 16:36-0400 Diastolic blood pressure 70 mm[Hg] Bere Boykin THERAPEUTIC DIETITIAN.MANPOWER DEVELOPMENT SPECIALIST MANAGER Work Phone: [facility] 11-08-2023 16:36-0400 Heart rate 94 /min Bere Boykin THERAPEUTIC DIETITIAN.C MANAGER CONFIGURATION Work Phone: [facility] 11-08-2023 16:36-0400 SaO2% (BldA) [Mass fraction] 95 % Bere Boykin THERAPEUTIC DIETITIAN.MANPOWER DEVELOPMENT SPECIALIST MANAGER Work Phone: [facility] 11-08-2023 16:36-0400 Systolic blood pressure 156 mm[Hg] Bere Boykin THERAPEUTIC DIETITIAN.MANPOWER DEVELOPMENT SPECIALIST MANAGER Work Phone: [facility] 11-04-2023 08:08-0400 Body mass index (BMI) [Ratio] 29.74 kg/m2 NA Le PA-C Work Phone: [facility] 11-04-2023 08:08-0400 Body weight 72.58 kg NA Le PA-C Work Phone: [facility] 11-04-2023 08:08-0400 Diastolic blood pressure 70 mm[Hg] NA Le PA-C Work Phone: [facility] 11-04-2023 08:08-0400 Heart rate 88 /min NA Le PA-C Work Phone: [facility] 11-04-2023 08:08-0400 Respiratory rate 20 /min NA Le PA-C Work Phone: [facility] 11-04-2023 08:08-0400 SaO2% (BldA) [Mass fraction] 97 % NA Le PA-C Work Phone: [facility] 11-04-2023 08:08-0400 Systolic blood pressure 130 mm[Hg] NA Le PA-C Work Phone: [facility] 10-18-2023 13:11-0400 Diastolic blood pressure 76 mm[Hg] NA Le PA-C Work Phone: [facility] 10-18-2023 13:11-0400 Systolic blood pressure 144 mm[Hg] NA Le PA-C Work Phone: [facility] 10-18-2023 13:04-0400 Body weight 75.48 kg NA Le PA-C Work Phone: [facility] 10-18-2023 13:04-0400 Heart rate 90 /min NA Le PA-C Work Phone: [facility] 10-18-2023 13:04-0400 Respiratory rate 20 /min NA Le PA-C Work Phone: [facility] 10-18-2023 13:04-0400 SaO2% (BldA) [Mass fraction] 99 % NA Le PA-C Work Phone: [facility] 10-14-2023 14:40-0400 Diastolic blood pressure 73 mm[Hg] Lars Silva DO Work Phone: [facility] 10-14-2023 14:40-0400 Heart rate 85 /min Lars Silva DO Work Phone: [facility] 10-14-2023 14:40-0400 SaO2% (BldA) [Mass fraction] 97 % Lars Silva DO Work Phone: [facility] 10-14-2023 14:40-0400 Systolic blood pressure 153 mm[Hg] Lars Silva DO Work Phone: [facility] 07-05-2023 11:19-0500 Body temperature 98.49 [degF] Bijan Cole MD Work Phone: [facility] 07-05-2023 11:19-0500 Body weight 71.31 kg Bijan Cole MD Work Phone: [facility] 07-05-2023 11:19-0500 Diastolic blood pressure 80 mm[Hg] Bijan Cole MD Work Phone: [facility] 07-05-2023 11:19-0500 Heart rate 90 /min Bijan Cole MD Work Phone: [facility] 07-05-2023 11:19-0500 Respiratory rate 20 /min Bijan Cole MD Work Phone: [facility] 07-05-2023 11:19-0500 SaO2% (BldA) [Mass fraction] 98 % Bijan Cole MD Work Phone: [facility] 07-05-2023 11:19-0500 Systolic blood pressure 158 mm[Hg] Bijan Cole MD Work Phone: [facility] 01-07-2023 08:44-0400 Body weight 65.77 kg NA Le PA-C Work Phone: [facility] 01-07-2023 08:44-0400 Diastolic blood pressure 72 mm[Hg] NA Le PA-C Work Phone: [facility] 01-07-2023 08:44-0400 Heart rate 70 /min NA Le PA-C Work Phone: [facility] 01-07-2023 08:44-0400 Respiratory rate 16 /min NA Le PA-C Work Phone: [facility] 01-07-2023 08:44-0400 SaO2% (BldA) [Mass fraction] 96 % NA Le PA-C Work Phone: [facility] 01-07-2023 08:44-0400 Systolic blood pressure 136 mm[Hg] NA Le PA-C Work Phone: [facility] 10-06-2022 09:13-0400 Body weight 66.22 kg NA Le PA-C Work Phone: [facility] 10-06-2022 09:13-0400 Diastolic blood pressure 68 mm[Hg] NA Le PA-C Work Phone: [facility] 10-06-2022 09:13-0400 Heart rate 81 /min NA Le PA-C Work Phone: [facility] 10-06-2022 09:13-0400 Respiratory rate 18 /min NA Le PA-C Work Phone: [facility] 10-06-2022 09:13-0400 SaO2% (BldA) [Mass fraction] 96 % NA Le PA-C Work Phone: [facility] 10-06-2022 09:13-0400 Systolic blood pressure 144 mm[Hg] NA Le PA-C Work Phone: [facility] 09-28-2022 09:15-0400 Body height 156.2 cm Carla Burdick MD Work Phone: [facility] 09-28-2022 09:15-0400 Body weight 68.4 kg Carla Burdick MD Work Phone: [facility] 09-28-2022 09:15-0400 Diastolic blood pressure 74 mm[Hg] Carla Burdick MD Work Phone: [facility] 09-28-2022 09:15-0400 Heart rate 78 /min Carla Burdick MD Work Phone: [facility] 09-28-2022 09:15-0400 Systolic blood pressure 128 mm[Hg] Carla Burdick MD Work Phone: [facility] 07-07-2022 08:56-0500 Body weight 65.32 kg NA Le PA-C Work Phone: [facility] 07-07-2022 08:56-0500 Diastolic blood pressure 62 mm[Hg] NA Le PA-C Work Phone: [facility] 07-07-2022 08:56-0500 Heart rate 74 /min NA Le PA-C Work Phone: [facility] 07-07-2022 08:56-0500 Respiratory rate 16 /min NA Le PA-C Work Phone: [facility] 07-07-2022 08:56-0500 SaO2% (BldA) [Mass fraction] 97 % NA Le PA-C Work Phone: [facility] 07-07-2022 08:56-0500 Systolic blood pressure 148 mm[Hg] NA Le PA-C Work Phone: [facility] 05-14-2022 09:27-0500 Body temperature 98.91 [degF] Sonny Lund MD Work Phone: [facility] 05-14-2022 09:27-0500 Body weight 68.49 kg Sonny Lund MD Work Phone: [facility] 05-14-2022 09:27-0500 Diastolic blood pressure 72 mm[Hg] Sonny Lund MD Work Phone: [facility] 05-14-2022 09:27-0500 Heart rate 84 /min Sonny Lund MD Work Phone: [facility] 05-14-2022 09:27-0500 Respiratory rate 16 /min Sonny Lund MD Work Phone: [facility] 05-14-2022 09:27-0500 SaO2% (BldA) [Mass fraction] 98 % Sonny Lund MD Work Phone: [facility] 05-14-2022 09:27-0500 Systolic blood pressure 147 mm[Hg] Sonny Lund MD Work Phone: [facility] 04-28-2022 09:09-0400 Body temperature 97.3 [degF] Treatment Wstr Work Phone: [facility] 04-28-2022 09:09-0400 Diastolic blood pressure 62 mm[Hg] Treatment Wstr Work Phone: [facility] 04-28-2022 09:09-0400 Heart rate 83 /min Treatment Wstr Work Phone: [facility] 04-28-2022 09:09-0400 Systolic blood pressure 122 mm[Hg] Treatment Wstr Work Phone: [facility] 04-22-2022 10:54-0400 Body temperature 97.11 [degF] Treatment Wstr Work Phone: [facility] 04-22-2022 10:54-0400 Diastolic blood pressure 68 mm[Hg] Treatment Wstr Work Phone: [facility] 04-22-2022 10:54-0400 Heart rate 102 /min Treatment Wstr Work Phone: [facility] 04-22-2022 10:54-0400 Systolic blood pressure 135 mm[Hg] Treatment Wstr Work Phone: [facility] 04-20-2022 09:30-0400 Body temperature 97.9 [degF] Treatment Wstr Work Phone: [facility] 04-20-2022 09:30-0400 Diastolic blood pressure 61 mm[Hg] Treatment Wstr Work Phone: [facility] 04-20-2022 09:30-0400 Heart rate 98 /min Treatment Wstr Work Phone: [facility] 04-20-2022 09:30-0400 Systolic blood pressure 130 mm[Hg] Treatment Wstr Work Phone: [facility] 04-17-2022 15:31-0400 Body temperature 98.1 [degF] Treatment Wstr Work Phone: [facility] 04-17-2022 15:31-0400 Diastolic blood pressure 66 mm[Hg] Treatment Wstr Work Phone: [facility] 04-17-2022 15:31-0400 Heart rate 97 /min Treatment Wstr Work Phone: [facility] 04-17-2022 15:31-0400 SaO2% (BldA) [Mass fraction] 99 % Treatment Wstr Work Phone: [facility] 04-17-2022 15:31-0400 Systolic blood pressure 137 mm[Hg] Treatment Wstr Work Phone: [facility] 04-09-2022 11:33-0400 Body height 161.3 cm Brayan Chicas MD Work Phone: [facility] 04-09-2022 11:33-0400 Body weight 67.59 kg Brayan Chicas MD Work Phone: [facility] 04-06-2022 10:44-0400 Body weight 66.68 kg CARMELINA Le PA-C Work Phone: [facility] 10-03-2022 10:44-0400 Diastolic blood pressure 72 mm[Hg] NA Le PA-C Work Phone: [facility] 04-06-2022 10:44-0400 Heart rate 95 /min NA Le PA-C Work Phone: [facility] 04-06-2022 10:44-0400 Respiratory rate 24 /min NA Le PA-C Work Phone: [facility] 04-06-2022 10:44-0400 SaO2% (BldA) [Mass fraction] 99 % NA Le PA-C Work Phone: [facility] 04-06-2022 10:44-0400 Systolic blood pressure 148 mm[Hg] NA Le PA-C Work Phone: [facility] 03-30-2022 08:49-0400 Body weight 65.32 kg Carla Burdick MD Work Phone: [facility] 03-30-2022 08:49-0400 Diastolic blood pressure 64 mm[Hg] Carla Burdick MD Work Phone: [facility] 03-30-2022 08:49-0400 Heart rate 90 /min Carla Burdick MD Work Phone: [facility] 03-30-2022 08:49-0400 SaO2% (BldA) [Mass fraction] 100 % Carla Burdick MD Work Phone: [facility] 03-30-2022 08:49-0400 Systolic blood pressure 144 mm[Hg] Carla Burdick MD Work Phone: [facility] 03-19-2022 11:07-0400 Body weight 69.85 kg NA Le PA-C Work Phone: [facility] 03-19-2022 11:07-0400 Diastolic blood pressure 66 mm[Hg] NA Le PA-C Work Phone: [facility] 03-19-2022 11:07-0400 Heart rate 112 /min NA Le PA-C Work Phone: [facility] 03-19-2022 11:07-0400 Respiratory rate 24 /min NA Le PA-C Work Phone: [facility] 03-19-2022 11:07-0400 SaO2% (BldA) [Mass fraction] 97 % NA Le PA-C Work Phone: [facility] 03-19-2022 11:07-0400 Systolic blood pressure 148 mm[Hg] NA Le PA-C Work Phone: [facility] 03-03-2022 13:45-0400 Body height 160 cm Radha Brian THERAPEUTIC DIETITIAN.MANPOWER DEVELOPMENT SPECIALIST MANAGER Work Phone: [facility] 03-03-2022 13:45-0400 Body weight 63.5 kg Radha Brian THERAPEUTIC DIETITIAN.MANPOWER DEVELOPMENT SPECIALIST MANAGER Work Phone: [facility] 03-03-2022 13:45-0400 Diastolic blood pressure 72 mm[Hg] Radha Brian THERAPEUTIC DIETITIAN.MANPOWER DEVELOPMENT SPECIALIST MANAGER Work Phone: [facility] 03-03-2022 13:45-0400 Heart rate 98 /min Radha Brian THERAPEUTIC DIETITIAN.MANPOWER DEVELOPMENT SPECIALIST MANAGER Work Phone: [facility] 03-03-2022 13:45-0400 Systolic blood pressure 141 mm[Hg] Radha Brian THERAPEUTIC DIETITIAN.MANPOWER DEVELOPMENT SPECIALIST MANAGER Work Phone: [facility] 03-03-2022 13:00-0400 Diastolic blood pressure 62 mm[Hg] [facility] 03-03-2022 13:00-0400 Heart rate 105 /min [facility] 03-03-2022 13:00-0400 SaO2% (BldA) [Mass fraction] 94 % [facility] 03-03-2022 13:00-0400 Systolic blood pressure 129 mm[Hg] [facility] 03-03-2022 12:50-0400 Respiratory rate 12 /min [facility] 03-03-2022 10:56-0400 Body temperature 97.5 [degF] [facility] 02-20-2022 09:31-0400 Body weight 64.86 kg NA Le PA-C Work Phone: [facility] 02-20-2022 09:31-0400 Diastolic blood pressure 78 mm[Hg] NA Le PA-C Work Phone: [facility] 02-20-2022 09:31-0400 Heart rate 116 /min NA Le PA-C Work Phone: [facility] 02-20-2022 09:31-0400 Respiratory rate 16 /min NA Le PA-C Work Phone: [facility] 02-20-2022 09:31-0400 SaO2% (BldA) [Mass fraction] 100 % NA Le PA-C Work Phone: [facility] 02-20-2022 09:31-0400 Systolic blood pressure 132 mm[Hg] NA Le PA-C Work Phone: [facility] 01-16-2022 10:26-0400 Body temperature 98.49 [degF] NA Le PA-C Work Phone: [facility] 01-16-2022 10:26-0400 Body weight 64.41 kg NA Le PA-C Work Phone: [facility] 01-16-2022 10:26-0400 Diastolic blood pressure 72 mm[Hg] NA Le PA-C Work Phone: [facility] 01-16-2022 10:26-0400 Heart rate 92 /min NA Le PA-C Work Phone: [facility] 01-16-2022 10:26-0400 Respiratory rate 16 /min NA Le PA-C Work Phone: [facility] 01-16-2022 10:26-0400 SaO2% (BldA) [Mass fraction] 98 % NA Le PA-C Work Phone: [facility] 01-16-2022 10:26-0400 Systolic blood pressure 138 mm[Hg] NA Le PA-C Work Phone: [facility] 01-09-2022 14:25-0400 Diastolic blood pressure 66 mm[Hg] Emilia Diallo MD Work Phone: [facility] 01-09-2022 14:25-0400 Heart rate 95 /min Emilia Diallo MD Work Phone: [facility] 01-09-2022 14:25-0400 SaO2% (BldA) [Mass fraction] 99 % Emilia Diallo MD Work Phone: [facility] 01-09-2022 14:25-0400 Systolic blood pressure 133 mm[Hg] Emilia Diallo MD Work Phone: [facility] 01-02-2022 11:15-0400 Diastolic blood pressure 60 mm[Hg] Chai Encinas MD Work Phone: [facility] 01-02-2022 11:15-0400 Heart rate 89 /min Chai Encinas MD Work Phone: [facility] 01-02-2022 11:15-0400 SaO2% (BldA) [Mass fraction] 97 % Chai Encinas MD Work Phone: [facility] 01-02-2022 11:15-0400 Systolic blood pressure 134 mm[Hg] Chai Encinas MD Work Phone: [facility] 01-02-2022 11:00-0400 Respiratory rate 20 /min Chai Encinas MD Work Phone: [facility] 01-02-2022 10:42-0400 Body temperature 97.9 [degF] Chai Encinas MD Work Phone: [facility] 01-02-2022 08:59-0400 Body height 160 cm Chai Encinas MD Work Phone: [facility] 01-02-2022 08:59-0400 Body weight 65.77 kg Chai Encinas MD Work Phone: [facility] 01-01-2022 09:45-0400 Body height 160 cm Chai Encinas MD Work Phone: [facility] 01-01-2022 09:45-0400 Body temperature 97 [degF] Chai Encinas MD Work Phone: [facility] 01-01-2022 09:45-0400 Body weight 65.77 kg Chai Encinas MD Work Phone: [facility] 01-01-2022 09:45-0400 Diastolic blood pressure 52 mm[Hg] Chai Encinas MD Work Phone: [facility] 01-01-2022 09:45-0400 Heart rate 100 /min Chai Encinas MD Work Phone: [facility] 01-01-2022 09:45-0400 SaO2% (BldA) [Mass fraction] 98 % Chai Encinas MD Work Phone: [facility] 01-01-2022 09:45-0400 Systolic blood pressure 122 mm[Hg] Chai Encinas MD Work Phone: [facility] 12-30-2021 13:16-0400 Body temperature 96.9 [degF] [facility] Work Phone: 12-30-2021 13:16-0400 Diastolic blood pressure 54 mm[Hg] [facility] Work Phone: 12-30-2021 13:16-0400 Heart rate 73 /min [facility] Work Phone: 12-30-2021 13:16-0400 Respiratory rate 16 /min [facility] Work Phone: 12-30-2021 13:16-0400 SaO2% (BldA) [Mass fraction] 97 % [facility] Work Phone: 12-30-2021 13:16-0400 Systolic blood pressure 113 mm[Hg] [facility] Work Phone: 12-30-2021 08:17-0400 Body height 160.02 cm [facility] Work Phone: 12-15-2021 09:08-0400 Body temperature 98.2 [degF] NA Le PA-C Work Phone: [facility] 12-15-2021 09:08-0400 Body weight 66.04 kg NA Le PA-C Work Phone: [facility] 12-15-2021 09:08-0400 Diastolic blood pressure 64 mm[Hg] NA Le PA-C Work Phone: [facility] 12-15-2021 09:08-0400 Heart rate 97 /min NA Le PA-C Work Phone: [facility] 12-15-2021 09:08-0400 Respiratory rate 18 /min NA Le PA-C Work Phone: [facility] 12-15-2021 09:08-0400 SaO2% (BldA) [Mass fraction] 99 % NA Le PA-C Work Phone: [facility] 12-15-2021 09:08-0400 Systolic blood pressure 118 mm[Hg] NA Le PA-C Work Phone: [facility] 11-26-2021 09:54-0400 Body height 160 cm aN Ramirez THERAPEUTIC DIETITIAN.CN P Work Phone: [facility] 11-26-2021 09:54-0400 Body weight 65.77 kg Na Ramirez THERAPEUTIC DIETITIAN.CN P Work Phone: [facility] 01-19-2019 10:25-0400 BMI (Body Mass Index) 28.62 kg/m2 [facility] 01-19-2019 10:25-0400 Body weight 72.12 kg [facility] 01-19-2019 10:25-0400 BP Diastolic 64 mm[Hg] [facility] 01-19-2019 10:25-0400 BP Systolic 134 mm[Hg] [facility] 01-19-2019 10:25-0400 Height 158.8 cm [facility] 01-19-2019 10:25-0400 Pulse (Heart Rate) 100 /min [facility]-19-2019 10:25 Pulse Oximetry 99 % [facility] 01-19-2019 10:25-0400 Respiratory Rate 16 /min [facility] Encounters Encounter Date Encounter Type Care Provider [...] Start: 01-01-2025 End: 01-01-2025 ambulatory CARLA BURDICK Facility:[facility] Start: 12-26-2024 End: 12-26-2024 Orders Only Albin Gu APRN.MANPOWER DEVELOPMENT SPECIALIST MANAGER Work Phone: Cardiology Comment on above: Returning Patient's Call Start: 12-20-2024 End: 12-20-2024 Patient encounter procedure Lars Silva DO Work Phone: Vascular Surgery Comment on above: Superior mesenteric artery stenosis (HCC) (Primary Dx) Start: 12-20-2024 End: 12-20-2024 ambulatory LARS SILVA Facility:[facility] Start: 12-19-2024 End: 12-19-2024 Patient encounter procedure Albin Gu APRN.MANPOWER DEVELOPMENT SPECIALIST MANAGER Work Phone: Cardiology Comment on above: Chronic diastolic co ngestive heart failure (HCC) (Primary Dx); Primary hypertension; SSS (sick sinus syndrome) (HCC); Longstanding persistent atrial fibrillation (HCC) Start: 12-19-2024 End: 12-19-2024 ambulatory ALBIN GU Facility:[facility] Start: 12-13-2024 End: 12-13-2024 Telephone encounter Deysi Nicholson APRN.CNP Work Phone: NOC Comment on above: Transition Of Care Start: 12-11-2024 End: 12-11-2024 Telephone encounter Deysi Nicholson APRN.MANPOWER DEVELOPMENT SPECIALIST MANAGER Work Phone: [address] [place] [address] Start: 12-10-2024 End: 12-12-2024 Evaluation and management of inpatient [facility] Facility:[facility] Start: 12-01-2024 End: 12-01-2024 ambulatory CARLA BURDICK Facility:[facility] Start: 11-20-2024 End: 11-20-2024 Patient encounter procedure Carla Burdick MD Work Phone: Cardiology Comment on above: History of prostheti c aortic valve replacement (Primary Dx); Chronic diastolic (congestive) heart failure (HCC); Ascending aorta dilatation; Longstanding persistent atrial fibrillation (HCC); PAD (peripheral artery disease); Primary hypertension; Hyperlipidemia with target LDL less than 70; Acute mesenteric ischemia (HCC) Start: 11-20-2024 End: 11-20-2024 ambulatory CARLA BURDICK Facility:[facility] Start: 11-15-2024 End: 11-15-2024 Follow-up encounter Carla Burdick MD Work Phone: [facility] Cardiology [place] Start: 11-13-2024 End: 11-13-2024 ambulatory [facility] Facility[facility] Start: 11-06-2024 End: 11-06-2024 ambulatory CARLA BURDICK Facility:[facility] Start: 11-06-2024 End: 11-06-2024 Patient encounter procedure [...] Start: 11-03-2024 End: 11-03-2024 ambulatory ALBIN GU Facility:[facility] Start: 11-03-2024 End: 11-03-2024 Patient encounter procedure Albin Gu APRN.CNP Work Phone: Cardiology Comment on above: Chronic diastolic co ngestive heart failure (HCC) (Primary Dx); Primary hypertension; SSS (sick sinus syndrome) (HCC); Longstanding persistent atrial fibrillation (HCC); Stage 3b chronic kidney disease (HCC) Start: 11-03-2024 End: 11-03-2024 ambulatory ALBIN GU Facility:[facility] Start: 10-31-2024 End: 12-31-2024 Follow-up encounter Shaye Domingo APRN.CNP Work Phone: [facility] Start: 10-31-2024 End: 10-31-2024 ambulatory SHAYE DOMINGO Facility:[facility] Start: 10-31-2024 End: 10-31-2024 Office outpatient visit 25 minutes Shaye Domingo APRN.CNP Work Phone: [facility] Comment on above: Acute mesenteric isc hemia [...] Start: 07-07-2024 End: 07-07-2024 ambulatory DIANNE LE Facility:[facility] Start: 07-07-2024 End: 07-07-2024 ambulatory DIANNE LE Facility:[facility] Start: 04-07-2024 End: 04-07-2024 Patient encounter procedure Albin Gu THERAPEUTIC DIETITIAN.MANPOWER DEVELOPMENT SPECIALIST MANAGER Work Phone: Cardiology Comment on above: Chronic diastolic co ngestive heart failure (HCC) (Primary Dx); Primary hypertension; SSS (sick sinus syndrome) (HCC); Longstanding persistent atrial fibrillation (HCC) Start: 04-07-2024 End: 04-07-2024 ambulatory ALBIN GU Facility:[facility] Start: 03-14-2024 End: 03-14-2024 Refill Melida Koo THERAPEUTIC DIETITIAN.MANPOWER DEVELOPMENT SPECIALIST MANAGER Work Phone: Cardiology Start: 02-28-2024 End: 02-28-2024 ambulatory [facility] Facility:[facility] Start: 02-21-2024 End: 02-21-2024 Telephone encounter Melida Koo APRN.MANPOWER DEVELOPMENT SPECIALIST MANAGER Work Phone: Cardiology Start: 02-17-2024 ambulatory Carla dempsey MD Work Phone: Cardiology Comment on above: NT Pro BNP Start: 02-15-2024 End: 02-15-2024 ambulatory DIANNE HAASORY LE Facility:[facility] Start: 02-07-2024 Telephone encounter Melida walker THERAPEUTIC DIETITIAN.MANPOWER DEVELOPMENT SPECIALIST MANAGER Work Phone: Cardiology Comment on above: Recheck Chronic diastolic co ngestive heart failure (HCC) (Primary Dx) Start: 02-04-2024 Telephone encounter Albin amaro THERAPEUTIC DIETITIAN.MANPOWER DEVELOPMENT SPECIALIST MANAGER Work Phone: Cardiology Comment on above: Appointment Results Start: 02-03-2024 End: 02-03-2024 ambulatory [facility] Facility:[facility] Start: 01-17-2024 End: 01-17-2024 ambulatory DIANNE TAYLOR LE Facility:[facility] Start: 01-17-2024 End: 01-17-2024 Patient encounter procedure [...] 15 minutes Deysi Nicholson APRN.JASPREET Work Phone: [facility] Comment on above: URI, acute (Primary Dx) [...] 25 minutes Deysi Nicholson APRN.JASPREET Work Phone: [facility] Comment on above: Acute systolic CHF ( congestive heart failure) (HCC) (Primary Dx); Hyponatremia; Hypokalemia Start: 11-19-2023 Telephone encounter Albin amaro APRN.MANPOWER DEVELOPMENT SPECIALIST MANAGER Work Phone: Cardiology Comment on above: Patient Question Start: 11-17-2023 Telephone encounter Gwen Valentine RN Cardiology Comment on above: Camera Tuning Engineer - O ther (CHF) Start: 11-16-2023 ambulatory Geri Santoyo RN Amb ulatory Care Management Comment on above: YONG SAM RN ( E.D. Utilization Review per Payer Request.) Start: 11-15-2023 Telephone encounter Nara Malone RN NOC Comment on above: Transition Of Care Start: 11-12-2023 Orders Only Ying saenz APRN.MANPOWER DEVELOPMENT SPECIALIST MANAGER Work Phone: Cardiology Comment on above: Stage 3 chronic kidn ey disease, unspecified whether stage 3a or 3b CKD (HCC) (Primary Dx) Initial Consult (HEA RT FAILURE [id number] ) Start: 11-08-2023 End: 11-08-2023 Emergency department patient visit Doreen LE Facility:[facility] Start: 11-08-2023 End: 11-08-2023 Patient encounter procedure Bere Ashutosh ANDERSONMANPOWER DEVELOPMENT SPECIALIST MANAGER Work Phone: Cardiology Comment on above: Acute [...] hospital visit by physician [facility] Work Phone: Radiology Comment on above: Acute systolic CHF ( congestive heart failure) ([facility]) [I50.21] Start: 10-18-2023 End: 10-18-2023 Patient encounter procedure Doreen Le PA-C Work Phone: [facility] Comment on above: SSS (sick sinus synd juliana) ([facility]) (Primary Dx); Paroxysmal atrial fibrillation ([facility]); S/P placement of cardiac pacemaker; Chronic combined systolic and diastolic CHF (congestive heart failure) ([facility]); Dilated cardiomyopathy ([facility]); Ascending aorta dilatation ([facility]); Pedro aneurysm of anterior communicating artery; History of pulmonary embolism; Presence of Watchman left atrial appendage closure device; Platelet inhibition due to Plavix; Primary hypertension; Hyperlipidemia with target LDL less than 70; Heme + stool; Epigastric pain; Blood loss anemia; Acute systolic CHF (congestive heart failure) ([facility]); Vitamin D deficiency Start: 10-15-2023 Telephone encounter Carla Burdick MD Work Phone: Cardiology Comment on above: Patient Update Start: 10-14-2023 End: 10-14-2023 Patient encounter procedure Lars Kellen Silva DO Work Phone: Vascular Surgery Comment on above: Venous insufficiency (Primary Dx) Start: 10-11-2023 Follow-up encounter Yin Joseph MD Work Phone: [facility] Start: 10-11-2023 Pacemaker Remote F/U Yin Joseph MD Work Phone: [facility] Department Start: 07-05-2023 End: 07-05-2023 Patient encounter procedure Bijan Cole MD Work Phone: [facility] Comment on above: Influenza-like illne ss (Primary Dx) Start: 06-07-2023 ambulatory Doreen de la cruz PA-C Work Phone: [facility] Comment on above: Rt. Foot Bone Fractu re Start: 06-01-2023 End: 06-01-2023 Subsequent hospital visit by physician [facility] Work Phone: Radiology Comment on above: Closed nondisplaced fracture of fifth metatarsal bone of right foot with routine healing, subsequent encounter [S92.354D] Start: 04-30-2023 End: 04-30-2023 Subsequent hospital visit by physician [facility] (I-Stat) Work Phone: Cat Scan Comment on above: Lung nodule, solitar y [R91.1] Start: 04-12-2023 End: 04-12-2023 Subsequent hospital visit by physician [facility] Work Phone: Radiology Comment on above: Pain of right middle finger [M79.644] Start: 04-07-2023 End: 04-07-2023 Emergency department patient visit [facility] Facility:[facility] Start: 03-23-2023 Follow-up encounter Yin Joseph MD Work Phone: [facility] Start: 03-23-2023 Pacemaker Remote F/U Yin Joseph MD Work Phone: [facility] Department Start: 03-15-2023 Refill Doreen de la cruz PA-C Work Phone: Family [facility] Comment on above: Refill Request Start: 01-28-2023 Telephone encounter Doreen Le PA-C Work Phone: [facility] Comment on above: Appointment Start: 01-08-2023 Telephone encounter Doreen Le PA-C Work Phone: [facility] Comment on above: Orders Start: 01-07-2023 End: 01-07-2023 Patient encounter procedure Doreen Le PA-C Work Phone: [facility] Comment on above: Bilateral carotid ar marcelo stenosis (Primary Dx); Atherosclerosis of [place] artery of both lower extremities with intermittent [...] Follow-up encounter Yin Joseph MD Work Phone: [facility] Start: 12-22-2022 Pacemaker Remote F/U Yni Joseph MD Work Phone: [facility] Department Start: 12-10-2022 ambulatory Doreen LE Facili ty:[facility] Start: 10-06-2022 End: 10-06-2022 Patient encounter procedure Doreen Le PA-C Work Phone: [facility] Comment on above: S/P placement of car [...] ischemic colitis; Adenomatous polyp of descending colon; Pedro aneurysm of anterior communicating artery; Bilateral carotid artery stenosis; Type 2 diabetes mellitus with diabetic peripheral angiopathy without gangrene, without long-term current use of insulin (HCC) Start: 10-05-2022 End: 10-05-2022 Subsequent hospital visit by physician [facility] Work Phone: Radiology Comment [...] H/O rheumatic heart disease; Paroxysmal atrial fibrillation ([facility]); Ascending aorta dilatation ([facility]); Dilated cardiomyopathy ([facility]); Chronic combined systolic and diastolic CHF (congestive heart failure) ([facility]); SSS (sick sinus syndrome) ([facility]); S/P placement of cardiac pacemaker; PAD (peripheral artery disease) ([facility]); Hyperlipidemia with target LDL less than 70 Start: 09-21-2022 Follow-up encounter Yin Joseph MD Work Phone: [facility] Start: 09-21-2022 Pacemaker Remote F/U Yin Joseph MD Work Phone: [facility] Department Start: 08-30-2022 Refill Doreen de la [...] regurgitation, subsequent encounter; SSS (sick sinus syndrome) ([facility]); Atrial fibrillation, unspecified type ([facility]); Presence of Watchman left atrial appendage closure device; Chronic combined systolic and diastolic CHF (congestive heart failure) ([facility]); S/P placement of cardiac pacemaker; Dilated cardiomyopathy ([facility]); Ascending aorta dilatation ([facility]); History of pulmonary embolism; Platelet inhibition due to Plavix; Primary hypertension; Hyperlipidemia with target LDL less than 70; Pedro aneurysm of anterior communicating artery; Stage 3b chronic kidney disease ([facility]); Type 2 diabetes mellitus with diabetic peripheral angiopathy without gangrene, without long-term current use of insulin ([facility]); Renal mass, right; Anemia, blood loss; Intracranial aneurysm; Spondylolisthesis at L4-L5 level; Nonruptured cerebral aneurysm; Paroxysmal atrial fibrillation ([facility]); Peripheral artery disease ([facility]) Start: 06-23-2022 Follow-up encounter Yin Joseph MD Work Phone: [facility] Start: 06-23-2022 Pacemaker Remote F/U Yin Joseph MD Work Phone: [facility] Department Start: 05-23-2022 Refill Sonny Lund MD Work Phone: Hematology/Oncology Comment on above: Refill Request; Refi ll Request Start: 05-14-2022 End: 05-14-2022 ambulatory Sonny Lund MD Work Phone: Hematology/Oncology Comment on above: Iron deficiency anem ia secondary to inadequate dietary iron intake (Primary Dx); Chronic renal failure, stage 3b ([facility]) Start: 05-14-2022 End: 05-14-2022 Patient encounter procedure Sonny Lund MD Work Phone: [facility] Start: 04-28-2022 End: 04-28-2022 ambulatory Treatment Rm 7 Tawanda [facility] Work Phone: Hematology/Oncology Comment on above: Iron deficiency anem ia secondary to inadequate dietary iron intake (Primary Dx); Iron malabsorption Start: 04-22-2022 Refill Carla dempsey MD Work Phone: Cardiology Comment on above: Refill Request Start: 04-22-2022 End: 04-22-2022 ambulatory Treatment Rm 7 Tawanda [facility] Work Phone: Hematology/Oncology Comment on above: Iron deficiency anem ia secondary to inadequate dietary iron intake (Primary Dx); Iron malabsorption Start: 04-20-2022 End: 04-20-2022 ambulatory Treatment Rm 9 Tawanda [facility] Work Phone: Hematology/Oncology Comment on above: Iron deficiency anem ia secondary to inadequate dietary iron intake (Primary Dx); Iron malabsorption Start: 04-17-2022 End: 04-17-2022 ambulatory Treatment Rm 9 Tawanda [facility] Work Phone: Hematology/Oncology Comment on above: Iron deficiency anem ia secondary to inadequate dietary iron intake (Primary Dx); Iron malabsorption Start: 04-09-2022 Telephone encounter Doreen Le PA-C Work Phone: [facility] Comment on above: Orders Start: 04-09-2022 [...] encounter procedure Doreen Le PA-C Work Phone: [facility] [place] Comment on above: Hospital discharge f [...] Telephone encounter Doreen Le PA-C Work Phone: [facility] Comment on above: Hospital Follow Up; [...] Follow-up encounter Yin Joseph MD Work Phone: [facility] Start: 03-24-2022 Pacemaker Remote F/U Yin Joseph MD Work Phone: [facility] Start: 03-23-2022 Telephone encounter Brianna Betancourt Cardiology Comment on above: Camera Tuning Engineer - O ther (CHF) Start: 03-21-2022 Telephone encounter Juan Diego Carroll MD Work Phone: [place] [facility] Comment on above: Appointment Start: 03-20-2022 Admission to establishment Sheridan manning RN Supportive Employment Case Manager Management Comment on above: Transition Of Care ( Tcm readmission) Start: 03-20-2022 ambulatory Sheridan Cervantes RN [facility] Start: 03-19-2022 End: 03-19-2022 Patient encounter procedure Doreen Le PA-C Work Phone: [facility] [place] Comment on above: 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); Aortic prosthetic valve regurgitation, subsequent encounter; H/O rheumatic heart disease; Atrial fibrillation, unspecified type (HCC); Presence of Watchman left atrial appendage closure device; Anemia, blood loss; Primary hypertension Start: 03-05-2022 ambulatory [facility]erv[facility] RN [facility] Comment on above: ABDIEL -; Watchmen Start: 03-05-2022 Follow-up encounter Sheridan Cervantes RN Supportive Employment Case Manager Management Comment on above: Transition Of Care ( Tcm follow up) Start: 03-03-2022 Follow-up encounter Lili Fay MD Work Phone: [facility] Start: 03-03-2022 End: 03-03-2022 Patient encounter procedure Lili Fay MD Work Phone: [facility] Department Comment on above: Longstanding persist ent atrial fibrillation (HCC) (Primary Dx); Presence of Watchman left atrial appendage closure device Paroxysmal atrial fi brillation (HCC); Presence of Watchman left atrial appendage closure device Start: 03-02-2022 Telephone encounter Saima England RN C ardiology Comment on above: Reminder Call (Trans esophageal Echo 03/03/22) Start: 02-25-2022 Patient Outreach Harika Tomas RN [facility] Comment on above: Transition Of Care ( [facility] D/C 02/24/2023 ) Start: 02-20-2022 End: 02-20-2022 Patient encounter procedure Doreen Le PA-C Work Phone: [facility] [place] Comment on above: Rectal bleeding (Nohemy stacie Dx); Anemia, blood loss; Diarrhea, unspecified type Start: 02-12-2022 Telephone encounter Chai Encinas MD Work Phone: General Surgery Comment on above: Procedure Follow Up (EGD completed on 01/02/2022) Start: 02-09-2022 Orders Only Candi Juarez nd THERAPEUTIC DIETITIAN.MANPOWER DEVELOPMENT SPECIALIST MANAGER Work Phone: Cardiology Comment on above: Paroxysmal atrial fi brillation (HCC) (Primary Dx); Presence of Watchman left atrial appendage closure device Start: 01-21-2022 Orders Only Candi Juarez nd THERAPEUTIC DIETITIAN.MANPOWER DEVELOPMENT SPECIALIST MANAGER Work Phone: Cardiology Comment on above: Paroxysmal atrial fi brillation (HCC) (Primary Dx) Patient Question (OR YUSUF FOR ABDIEL AND ECG) Start: 01-19-2022 Refill Emilia Domínguez i, MD Work Phone: Cardiology Comment on above: Refill Request Start: 01-16-2022 End: 01-16-2022 Patient encounter procedure Doreen Le PA-C Work Phone: [facility] [place] Comment on above: Atrial fibrillation, unspecified type (HCC) (Primary Dx); Presence of Watchman left atrial appendage closure device; Herpes zoster without complication Start: 01-09-2022 ambulatory Chandler villalobos MD Work Phone: Cardiology Comment on above: Patient Education (E PS-Watchman) Start: 01-09-2022 Follow-up encounter Randy Torrez MD Work Phone: [facility] Start: 01-09-2022 End: 01-09-2022 Patient encounter procedure Randy Torrez MD Work Phone: [facility] Department Comment on above: Atrial fibrillation, unspecified type (HCC) (Primary Dx); Gastrointestinal hemorrhage, unspecified gastrointestinal hemorrhage type; Anemia due to chronic blood loss; Other fatigue; SOB (shortness of breath) Start: 01-02-2022 End: 01-02-2022 Subsequent hospital visit by physician Chai Encinas MD Work Phone: [facility] Comment on above: Acute blood loss ane miguel [D62] Start: 01-01-2022 Telephone encounter Chai Encinas MD Work Phone: General Surgery Comment on above: 01-02-2022 [facility] Start: 01-01-2022 End: 01-01-2022 Patient encounter procedure Chai Encinas MD Work Phone: General Surgery Comment on above: Anemia, blood loss ( Primary Dx); Acute blood loss anemia; Heme + stool; Sludge in gallbladder; Epigastric pain; Duodenal ulcer with hemorrhage Start: 12-30-2021 End: 12-30-2021 Patient encounter procedure [facility] Start: 12-29-2021 Telephone encounter Doreen Le PA-C Work Phone: [facility] [place] Comment on above: Orders Start: 12-27-2021 ambulatory Doreen Dodge on PA-C Work Phone: Family [facility] Nancy Comment on above: Fatigue Start: 12-26-2021 ambulatory Doreen Dodge on PA-C Work Phone: Family Medicine [place] Comment on above: Anemia - hemoglobin Start: 12-25-2021 Telephone encounter Chandler ortiz MD Work Phone: Cardiology Comment on above: Patient Question (ME DICATION DECREASE) Start: 12-19-2021 Telephone encounter Doreen Le PA-C Work Phone: Family [facility] [place] Comment on above: Rectal Problem Start: 12-15-2021 End: 12-15-2021 Subsequent hospital visit by physician David [facility] [place] Work Phone: Radiology Comment on above: Ischial bursitis of left side [M70.72] Start: 12-15-2021 End: 12-15-2021 Patient encounter procedure Doreen Le PA-C Work Phone: [facility] [place] Comment on above: Renal mass, right (P rimary Dx); History of pulmonary embolism; Primary hypertension; Hyperlipidemia with target LDL less than 70; Dilated cardiomyopathy ([facility]); SSS (sick sinus syndrome) ([facility]); Chronic diastolic congestive heart failure (HCC); Ascending aorta dilatation ([facility]); Pedro aneurysm of anterior communicating artery; Bilateral carotid artery stenosis; Chronic anticoagulation; Duodenal ulcer; Esophageal stenosis; Hypomagnesemia; Stage 3 chronic renal impairment associated with type 2 diabetes mellitus ([facility]); History of ischemic colitis; Adenomatous polyp of descending colon; PAD (peripheral artery disease) ([facility]); Type 2 diabetes mellitus with diabetic peripheral angiopathy without gangrene, without long-term current use of insulin ([facility]); Heme + stool; Epigastric pain; Blood loss anemia; Chronic insomnia; Ischial bursitis of left side Start: 12-11-2021 Follow-up encounter Yin Joseph MD Work Phone: [facility] Start: 12-11-2021 Pacemaker Remote F/U Yin Joseph MD Work Phone: [facility] Department Start: 12-04-2021 Refill Chandler villalobos MD Work Phone: Cardiology Start: 12-03-2021 Telephone encounter Chandler ortiz MD Work Phone: Cardiology Comment on above: Patient Question (ME DICATION QUESTION - XARELTO) Start: 11-27-2021 Orders Only Na Ramirez THERAPEUTIC DIETITIAN.MANPOWER DEVELOPMENT SPECIALIST MANAGER Work Phone: Vascular Surgery Comment on above: PAD (peripheral jennifer ry disease) (HCC) (Primary Dx); PVD (peripheral vascular disease) (HCC) Start: 11-26-2021 End: 11-26-2021 Office outpatient visit 25 minutes Na Ramirez THERAPEUTIC DIETITIAN.MANPOWER DEVELOPMENT SPECIALIST MANAGER Work Phone: Vascular Surgery Comment on above: PAD (peripheral jennifer ry disease) (HCC) (Primary Dx); Anemia due to chronic illness Start: 10-22-2021 Refill Yin Joseph MD Work Phone: Vascular Surgery Comment on above: Refill Request Start: 09-24-2021 Follow-up encounter Yin Joseph MD Work Phone: [facility] Start: 09-24-2021 Pacemaker Remote F/U Yin Joseph MD Work Phone: [facility] Department Start: 09-24-2021 Telephone encounter Chai Encinas MD Work Phone: General Surgery Comment on above: Appointment Cancelle d Start: 09-23-2021 Telephone encounter Chandler ortiz MD Work Phone: Cardiology Comment on above: Appointment Reschedu led (Due to change in physician's schedule) Start: 02-14-2021 End: 02-15-2021 ambulatory PROVIDER NOT IN SYSTEM [facility] Start: 01-23-2019 End: 01-23-2019 Refill Lizeth Mabry [facility] Cardiology Start: 01-19-2019 End: 01-19-2019 Office outpatient visit 15 minutes Mars Chung Work Phone: [facility] Cardiology Comment on above: Persistent atrial fi brillation (Primary Dx); [facility] current use of antiarrhythmic medical therapy; Moderate mitral regurgitation; Status post aortic valve replacement with tissue valve Start: 01-08-2014 End: 09-12-2021 Patient encounter status CARMELINA Rey HAMLIN Work Phone: [facility] Procedures Date Procedure Procedure Detail Performing Clinician [...] 2d w/wo m-mode rec f-up/lmtd Candi Beauchamp THERAPEUTIC DIETITIAN.MANPOWER DEVELOPMENT SPECIALIST MANAGER Work Phone: Start: 01-09-2022 PACEMAKER CLINIC CHECK [...] DTaP,Tdap,Td Vaccine (3 - Td or Tdap) [facility] Start: 12-12-2025 Complete blood count Hemoglobin/Hematocrit [facility] Start: 12-12-2025 Creatinine measurement Serum Creatinine [facility] Start: 12-11-2025 Complete blood count Hemoglobin/Hematocrit [facility] Start: 12-11-2025 Creatinine measurement Serum Creatinine [facility] Start: 12-11-2025 Hepatitis B screening Urine Albumin:Creatinine Ratio [facility] Start: 11-20-2025 Creatinine measurement Serum Creatinine [facility] Start: 11-13-2025 Creatinine measurement Serum Creatinine [facility] Start: 11-03-2025 BP Controlled (<130/80) BP Controlled (<130/80) [facility] in Start: 11-03-2025 Creatinine measurement Serum Creatinine [facility] Start: 10-31-2025 Annual PCP Team Chronic Disease Visit Annual PCP Team Chronic Disease Visit [facility] Start: 10-31-2025 Complete blood count Hemoglobin/Hematocrit [facility] Start: 10-31-2025 Creatinine measurement Serum Creatinine [facility] Start: 10-10-2025 Complete blood count Hemoglobin/Hematocrit [facility] Start: 10-03-2025 Hepatitis B screening Urine Albumin:Creatinine Ratio [facility] Start: 10-02-2025 Hepatitis B surface antibody level LDL Cholesterol [facility] Start: 07-07-2025 Annual PCP Team Chronic Disease Visit Annual PCP Team Chronic Disease Visit [facility] Start: 07-07-2025 Anxiety Screening Anxiety Screening [facility] Comment on above: Postponed from 1963 (Declined at t his time) Start: 07-07-2025 Covid-19 Vaccine () Covid-19 Vaccine () [facility] Comment on above: Postponed from 03/05/2024 (Declined at t his time) Start: 07-07-2025 Creatinine measurement Serum Creatinine [facility] Start: 07-07-2025 Hepatitis B screening Urine Albumin:Creatinine Ratio [facility] Start: 04-26-2025 Glaucoma screening Dilated Retinal Exam [facility] Start: 04-22-2025 Hemoglobin A1c measurement HbA1C [facility] Start: 04-03-2025 Hemoglobin A1c measurement HbA1C [facility] Start: 03-26-2025 End: 03-26-2025 Patient encounter procedure 03/26/2025 10:00 AM EDT Office Visit Cardiology [address] [place] [address] Carla Burdcik MD [address] [place] [address] 4 month follow up - ECHO prior Cardiology Comment on above: 4 month follow up - ECHO prior Start: 03-19-2025 End: 03-19-2025 Patient encounter procedure 03/19/2025 1:50 PM EDT Office Visit Cardiology [address] [place] [address] ECHO Cardiology Comment on above: ECHO Start: 02-26-2025 End: 02-26-2025 Patient encounter procedure 02/26/2025 2:20 PM EDT Office Visit Cardiology [address] [place] [address] Carla Burdick MD [address] [place] [address] f/u Cardiology Comment on above: f/u Start: 02-02-2025 Creatinine measurement Serum Creatinine [facility] Start: 02-02-2025 Hepatitis B surface antibody level LDL Cholesterol [facility] Start: 01-23-2025 End: 01-23-2025 Patient encounter procedure 01/23/2025 10:00 AM EDT Office Visit Cardiology [address] [place] [address] Albin Gu APRN.MANPOWER DEVELOPMENT SPECIALIST MANAGER [address] [place] [address] CHF FOLLOW UP Cardiology Comment on above: CHF FOLLOW UP Start: 01-10-2025 End: 01-10-2025 Patient encounter procedure Family Medicine [facility] Comment on above: 6 month follow up (SHABBIR from Rey) 6 month follow up Start: 01-04-2025 Hemoglobin A1c measurement HbA1C [facility] Start: 01-01-2025 End: 04-02-2025 Basic metabolic 2000 panel - Serum or Plasma BASIC METABOLIC PANEL Lab Routine Chronic diastolic (congestive) heart failure (HCC) Expected: 01/01/2025, Expires: 04/02/2025 [facility] Comment on above: Expected: 01/01/2025, Expires: Start: 01-01-2025 End: 04-02-2025 Natriuretic peptide.B prohormone N-Terminal [Mass/volume] in Serum or Plasma NT PRO BNP Lab Routine Chronic diastolic (congestive) heart failure (HCC) Expected: 01/01/2025, Expires: 04/02/2025 [facility] Comment on above: Expected: 01/01/2025, Expires: Start: 01-01-2025 End: 01-01-2025 Patient encounter procedure 01/01/2025 11:00 AM EDT Office Visit Cardiology [address] [place] [address] Carla Burdick MD [address] [id number] 1 month follow up Cardiology Comment on above: 1 month follow up Start: 12-21-2024 End: 12-21-2024 Patient encounter procedure 12/21/2024 9:00 AM EDT Office Visit Cardiology [address], [place] [id number] Albin Gu, THERAPEUTIC DIETITIAN.MANPOWER DEVELOPMENT SPECIALIST MANAGER [address], [place] [id number] CHF Cardiology Comment on above: CHF Start: 12-20-2024 End: 12-20-2024 Patient encounter procedure Vascular Surgery Comment on above: MESENTERIC AND HOSPITAL FOLLOW UP Start: 12-19-2024 End: 03-20-2025 Basic metabolic 2000 panel - Serum or Plasma BASIC METABOLIC PANEL Lab Routine Chronic diastolic congestive heart failure (HCC) Expected: 12/19/2024, Expires: 03/20/2025 [facility] Work Phone: Comment on above: Expected: 12/19/2024, Expires: Start: 12-18-2024 End: 12-18-2024 Patient encounter procedure 12/18/2024 11:00 AM EDT Office Visit Cardiology [address], [place] [id number] Albin Gu, THERAPEUTIC DIETITIAN.MANPOWER DEVELOPMENT SPECIALIST MANAGER [address], [place] [id number] CHF Cardiology Comment on above: CHF Start: 12-11-2024 End: 12-11-2024 Patient encounter procedure 12/11/2024 2:30 PM EDT Office Visit Cardiology [address] [place], [place] [id number] Allison Toledo APRN.MANPOWER DEVELOPMENT SPECIALIST MANAGER [address] [place] [address] follow u Cardiology Comment on above: follow u Start: 12-06-2024 Annual PCP Team Chronic Disease Visit Annual PCP Team Chronic Disease Visit [facility] Start: 12-06-2024 BP Controlled (<130/80) BP Controlled (<130/80) [facility] Start: 12-04-2024 End: 12-04-2024 Patient encounter procedure 12/04/2024 2:00 PM EDT Office Visit Cardiology [address] [place], [place] [address] Carla Burdick MD [address] [place], [place] [id number] 1 month follow up Cardiology Comment on above: 1 month follow up Start: 12-01-2024 Creatinine measurement Serum Creatinine [facility] Start: 11-21-2024 Annual PCP Team Chronic Disease Visit Annual PCP Team Chronic Disease Visit [facility] Start: 11-21-2024 BP Controlled (<130/80) BP Controlled (<130/80) [facility] Start: 11-21-2024 End: 11-21-2024 Patient encounter procedure 11/21/2024 10:00 AM EDT Office Visit Cardiology [address] [place] [address] Albin Gu, THERAPEUTIC DIETITIAN.MANPOWER DEVELOPMENT SPECIALIST MANAGER [address] [place] [address] CHF Cardiology Comment on above: CHF Start: 11-20-2024 End: 11-20-2024 Patient encounter procedure 11/20/2024 8:00 AM EDT Office Visit Cardiology [address] [place] [address] Carla Burdick MD [address] [place] [address] follow up with labs per Dr Burdick's phone note Cardiology Comment on above: follow up with labs per Dr Burdick's da ne note Start: 11-18-2024 Complete blood count Hemoglobin/Hematocrit [facility] Start: 11-18-2024 Creatinine measurement Serum Creatinine [facility] Start: 11-15-2024 End: 02-14-2025 Basic metabolic 2000 panel - Serum or Plasma BASIC METABOLIC PANEL Lab Routine Dyspnea on exertion Chronic diastolic congestive heart failure (HCC) Expected: 11/15/2024, Expires: 02/14/2025 [facility] Work Phone: Comment on above: Expected: 11/15/2024, Expires: Start: 11-15-2024 End: 02-14-2025 Natriuretic peptide.B prohormone N-Terminal [Mass/volume] in Serum or Plasma NT PRO BNP Lab Routine Dyspnea on exertion Chronic diastolic congestive heart failure (HCC) Expected: 11/15/2024, Expires: 02/14/2025 [facility] Comment on above: Expected: 11/15/2024, Expires: Start: 11-15-2024 End: 11-15-2024 ambulatory 11/15/2024 9:00 AM EDT OT/PT/Speech Visit [facility] [address] [place] [address] Frank Null, PT [address] [place] [address] Physical deconditioning [R53.81] [facility] Comment on above: Physical deconditioning [R53.81] Start: 11-11-2024 Complete blood count Hemoglobin/Hematocrit [facility] Start: 11-11-2024 Creatinine measurement Serum Creatinine [facility] Start: 11-09-2024 Complete blood count Hemoglobin/Hematocrit [facility] Start: 11-09-2024 Creatinine measurement Serum Creatinine [facility] Start: 11-07-2024 End: 11-07-2024 ambulatory 11/07/2024 10:45 AM EDT OT/PT/Speech Visit [facility] [address] [place] [address] Adriana Wilson OTR/L [address] [place] [address] Physical deconditioning [R53.81] [facility] Comment on above: Physical deconditioning [R53.81] Start: 11-06-2024 End: 11-06-2024 Patient encounter procedure 11/06/2024 2:40 PM EDT Office Visit Cardiology [address] [place] [address] Carla Burdick MD [address] [facility] [address] [place] [address] hospital f/u - acute on chronic CHF Cardiology Comment on above: hospital f/u - acute on chronic CHF Start: 11-06-2024 End: 02-05-2025 Basic metabolic 2000 panel - Serum or Plasma BASIC METABOLIC PANEL Lab Routine Chronic diastolic (congestive) heart failure (HCC) Expected: 11/06/2024, Expires: 02/05/2025 [facility] Work Phone: Comment on above: Expected: 11/06/2024, Expires: Start: 11-06-2024 End: 02-05-2025 Natriuretic peptide.B prohormone N-Terminal [Mass/volume] in Serum or Plasma NT PRO BNP Lab Routine Chronic diastolic (congestive) heart failure (HCC) Expected: 11/06/2024, Expires: 02/05/2025 [facility] Comment on above: Expected: 11/06/2024, Expires: Start: 11-03-2024 Annual PCP Team Chronic Disease Visit Annual PCP Team Chronic Disease Visit [facility] Start: 11-03-2024 End: 02-02-2025 Basic metabolic 2000 panel - Serum or Plasma BASIC METABOLIC PANEL Lab Routine Chronic diastolic congestive heart failure (HCC) Expected: 11/03/2024, Expires: 02/02/2025 [facility] Work Phone: Comment on above: Expected: 11/03/2024, Expires: Start: 10-31-2024 Complete blood count Hemoglobin/Hematocrit [facility] Start: 10-31-2024 Creatinine measurement Serum Creatinine [facility] Start: 10-26-2024 End: 10-26-2024 Patient encounter procedure 10/26/2024 9:00 AM EDT Office Visit Cardiology [address] [place] [address] Albin Gu APRN.MANPOWER DEVELOPMENT SPECIALIST MANAGER [address] [place] [address] I50.32 I10 I49.5 I48.11 Cardiology Comment on above: I50.32 I10 I49.5 I48.11 Start: 10-25-2024 End: 10-25-2024 Patient encounter procedure 10/25/2024 1:30 PM EDT Office Visit Vasculary Surgery [address] [place], [place] [id number] Bilateral carotid artery stenosis [I65.23] Vasculary Surgery Comment on above: Bilateral carotid artery stenosis [I65.2 3] Start: 10-24-2024 End: 10-24-2024 Patient encounter procedure 10/24/2024 11:00 AM EDT Office Visit Cardiology [address] [place] [address] Albin Gu APRN.MANPOWER DEVELOPMENT SPECIALIST MANAGER [address] [place] [address] CHF Cardiology Comment on above: CHF Start: 10-23-2024 End: 10-23-2024 Patient encounter procedure 10/23/2024 2:00 PM EDT Office Visit Family Medicine [facility] [address] [place], [place] [id number] Deysi Nicholson APRN.MANPOWER DEVELOPMENT SPECIALIST MANAGER [address] [place], [place] [id number] Post hospital visit Family Medicine [facility] Comment on above: Post hospital visit Start: 10-17-2024 Annual PCP Team Chronic Disease Visit Annual PCP Team Chronic Disease Visit [facility] Start: 10-17-2024 End: 10-17-2024 Patient encounter procedure Cardiology Comment on above: medtronic ep eval medtronic Start: 10-15-2024 Creatinine measurement Serum Creatinine [facility] Start: 07-05-2024 Advance Directive Discussion Advance Directive Discussion [facility] Start: 07-05-2024 Medicare Advantage Annual Wellness Visit Medicare Advantage Annual Wellness Visit [facility] Start: 06-01-2024 Annual PCP Team Chronic Disease Visit Annual PCP Team Chronic Disease Visit [facility] Start: 06-01-2024 BP Controlled (<130/80) BP Controlled (<130/80) [facility] Start: 04-16-2024 Glaucoma screening Dilated Retinal Exam [facility] Start: 04-16-2024 Hepatitis C antibody, confirmatory test Dilated Retinal Exam [facility] Start: 04-12-2024 Annual PCP Team Chronic Disease Visit Annual PCP Team Chronic Disease Visit [facility] Start: 04-12-2024 Covid-19 Vaccine () Covid-19 Vaccine () [facility] Comment on above: Postponed from 03/05/2023 (Declined at t his time) Start: 04-12-2024 Shingrix Vaccine (2 of 2) Shingrix Vaccine (2 of 2) [facility] Comment on above: Postponed from 01/03/2019 (Insurance Cov erage) Start: 04-07-2024 Complete blood count Hemoglobin/Hematocrit [facility] Start: 04-07-2024 Creatinine measurement Serum Creatinine [facility] Start: 04-07-2024 Hemoglobin/Hematocrit Hemoglobin/Hematocrit [facility] Start: 04-07-2024 Hepatitis B screening Urine Albumin:Creatinine Ratio [facility] Start: 04-07-2024 Hepatitis B surface antibody level LDL Cholesterol [facility] Start: 04-07-2024 Serum Creatinine Serum Creatinine [facility] Start: 04-07-2024 End: 04-07-2024 Patient encounter procedure 04/07/2024 9:00 AM EDT Office Visit Cardiology [address] [place] [address] Albin Gu APRN.MANPOWER DEVELOPMENT SPECIALIST MANAGER [address] [place] [address] I50.32 I10 I49.5 I48.11 I50.21 Cardiology Comment on above: I50.32 I10 I49.5 I48.11 I50.21 Start: 04-06-2024 End: 04-06-2024 Patient encounter procedure 04/06/2024 9:00 AM EDT Office Visit Cardiology [address] [place] [address] Albin Gu APRN.MANPOWER DEVELOPMENT SPECIALIST MANAGER [address] [place] [address] I50.32 I10 I49.5 I48.11 I50.21 Cardiology Comment on above: I50.32 I10 I49.5 I48.11 I50.21 Start: 03-05-2024 Covid-19 Vaccine ( season) Covid-19 Vaccine ( season) [facility] Start: 03-05-2024 Covid-19 Vaccine () Covid-19 Vaccine () [facility] Start: 03-05-2024 Influenza [facility] Start: 02-07-2024 End: 05-08-2024 Basic metabolic 2000 panel - Serum or Plasma BASIC METABOLIC PANEL Lab Routine Chronic kidney disease, unspecified CKD stage Expected: 02/07/2024, Expires: 05/08/2024 [facility] Work Phone: Comment on above: Expected: 02/07/2024, Expires: Start: 02-07-2024 End: 05-08-2024 Natriuretic peptide.B prohormone N-Terminal [Mass/volume] in Serum or Plasma NT PRO BNP Lab Routine Chronic diastolic congestive heart failure (HCC) Expected: 02/07/2024, Expires: 05/08/2024 [facility] Work Phone: Comment on above: Expected: 02/07/2024, Expires: Start: 02-07-2024 End: 02-07-2024 Patient encounter procedure 02/07/2024 8:00 AM EDT Office Visit [facility] [place] [address] [place] [address] Doreen Le PA-C [address] [place] [address] 3 month follow up [facility] [place] Comment on above: 3 month follow up Start: 01-17-2024 End: 04-17-2024 Comprehensive metabolic 2000 panel - Serum or Plasma COMPREHENSIVE METABOLIC PANEL Lab Routine Chronic diastolic (congestive) heart failure (HCC) Expected: 01/17/2024, Expires: 04/17/2024 [facility] Comment on above: Expected: 01/17/2024, Expires: Start: 01-17-2024 End: 04-17-2024 Lipid 1996 panel - Serum or Plasma LIPID PANEL BASIC Lab Routine Hyperlipidemia with target LDL less than 70 Expected: 01/17/2024, Expires: 04/17/2024 [facility] Work Phone: Comment on above: Expected: 01/17/2024, Expires: Start: 01-17-2024 End: 04-17-2024 Natriuretic peptide.B prohormone N-Terminal [Mass/volume] in Serum or Plasma NT PRO BNP Lab Routine Chronic diastolic (congestive) heart failure (HCC) Expected: 01/17/2024, Expires: 04/17/2024 [facility] Comment on above: Expected: 01/17/2024, Expires: Start: 01-17-2024 End: 01-17-2024 Patient encounter procedure 01/17/2024 9:20 AM EDT Office Visit Cardiology [address] [place] [address] Carla Burdick MD [address] [place] [address] 6 month follow up Cardiology Comment on above: 6 month follow up Start: 01-09-2024 Urine microalbumin profile [facility] Start: 01-08-2024 ANNUAL PCP TEAM CHRONIC DISEASE VISIT ANNUAL PCP TEAM CHRONIC DISEASE VISIT [facility] Start: 12-02-2023 End: 03-02-2024 CBC W Auto Differential panel - Blood COMPLETE BLOOD COUNT AND DIFFERENTIAL Lab Routine Borderline anemia Acute systolic congestive heart failure (HCC) Expected: 12/02/2023, Expires: 03/02/2024 [facility] Work Phone: Comment on above: Expected: 12/02/2023, Expires: Start: 12-02-2023 End: 03-02-2024 Iron and Iron binding capacity panel - Serum or Plasma IRON AND TIBC Lab Routine Borderline anemia Expected: 12/02/2023, Expires: 03/02/2024 [facility] Comment on above: Expected: 12/02/2023, Expires: Start: 11-30-2023 End: 11-30-2023 Patient encounter procedure 11/30/2023 11:00 AM EDT Office Visit Cardiology [address], [place] [id number] Albin Gu, THERAPEUTIC DIETITIAN.MANPOWER DEVELOPMENT SPECIALIST MANAGER [address], [place] [phone] NEW CHF/post hospitalization Cardiology Comment on above: NEW CHF/post hospitalization Start: 11-25-2023 End: 02-24-2024 Basic metabolic 2000 panel - Serum or Plasma BASIC METABOLIC PANEL Lab Routine Chronic diastolic congestive heart failure (HCC) Expected: 11/25/2023, Expires: 02/24/2024 [facility] Work Phone: Comment on above: Expected: 11/25/2023, Expires: Start: 11-25-2023 End: 11-25-2023 Patient encounter procedure 11/25/2023 10:00 AM EDT Office Visit Cardiology [address], [place] [id number] Albin Gu, THERAPEUTIC DIETITIAN.MANPOWER DEVELOPMENT SPECIALIST MANAGER [address], [place] [phone] NEW CHF/post hospitalization Cardiology Comment on above: NEW CHF/post hospitalization Start: 11-24-2023 End: 11-24-2023 ambulatory 11/24/2023 11:00 AM EDT Visit (SP) Office Hematology/Oncology [address] [place] [address] [place] [address] [place] [address] 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] Hematology/Oncology Comment on above: Iron deficiency anemia secondary to inad equate dietary iron intake [D50.8] Start: 11-22-2023 End: 02-21-2024 Renal function 2000 panel - Serum or Plasma RENAL FUNCTION PANEL Lab Routine Hyponatremia Hypokalemia Expected: 11/22/2023, Expires: 02/21/2024 [facility] Work Phone: Comment on above: Expected: 11/22/2023, Expires: Start: 11-22-2023 End: 11-22-2023 Patient encounter procedure 11/22/2023 9:00 AM EDT Office Visit [facility] [address] [place], [place] [address] Deysi Nicholson APRN.MANPOWER DEVELOPMENT SPECIALIST MANAGER [address] [place] [address] [facility] Follow up [facility] Comment on above: [facility] Follow up Start: 11-12-2023 End: 02-11-2024 Basic metabolic 2000 panel - Serum or Plasma BASIC METABOLIC PANEL Lab Routine Stage 3 chronic kidney disease, unspecified whether stage 3a or 3b CKD (HCC) Expected: 11/12/2023, Expires: 02/11/2024 [facility] Work Phone: Comment on above: Expected: 11/12/2023, Expires: Start: 11-09-2023 End: 11-09-2023 Patient encounter procedure Vasculary Surgery Comment on above: Carotid artery stenosis, asymptomatic, b ilateral [I65.23] PVD (peripheral vasc ular disease) with claudication (HCC) [I73.9] follow up after test ing Start: 11-08-2023 End: 11-08-2023 Patient encounter procedure 11/08/2023 4:30 PM EDT Office Visit Cardiology [address] [place] [address] Bere Boykin APRN.MANPOWER DEVELOPMENT SPECIALIST MANAGER [address] [place] [address] Follow up Cardiology Comment on above: Follow up Start: 11-04-2023 End: 11-04-2023 Patient encounter procedure 11/04/2023 8:00 AM EDT Office Visit Family Medicine Nancy [address] [place] [address] Doreen Le PA-C [address] [place] [address] 6 mo follow up Family Medicine Nancy Comment on above: 6 mo follow up Start: 11-02-2023 End: 02-01-2024 Basic metabolic 2000 panel - Serum or Plasma BASIC METABOLIC PANEL Lab Routine Acute systolic congestive heart failure (HCC) Expected: 11/02/2023, Expires: 02/01/2024 [facility] Comment on above: Expected: 11/02/2023, Expires: Start: 10-18-2023 End: 01-17-2024 25-hydroxyvitamin D3 [Mass/volume] in Serum or Plasma VITAMIN D 25 HYDROXY Lab Routine Vitamin D deficiency Expected: 10/18/2023, Expires: 01/17/2024 [facility] Work Phone: Comment on above: Expected: 10/18/2023, Expires: 4 Start: 10-18-2023 End: 01-17-2024 Basic metabolic 2000 panel - Serum or Plasma BASIC METABOLIC PANEL Lab Routine Acute systolic CHF (congestive heart failure) (HCC) Expected: 10/18/2023, Expires: 01/17/2024 [facility] Work Phone: Comment on above: Expected: 10/18/2023, Expires: 4 Start: 10-18-2023 End: 01-17-2024 CBC panel - Blood by Automated count COMPLETE BLOOD COUNT Lab Routine Acute systolic CHF (congestive heart failure) (HCC) Expected: 10/18/2023, Expires: 01/17/2024 [facility] Work Phone: Comment on above: Expected: 10/18/2023, Expires: Start: 10-18-2023 End: 01-17-2024 Natriuretic peptide.B prohormone N-Terminal [Mass/volume] in Serum or Plasma NT PRO BNP Lab Routine Acute systolic CHF (congestive heart failure) (HCC) Expected: 10/18/2023, Expires: 01/17/2024 [facility] Work Phone: Comment on above: Expected: 10/18/2023, Expires: Start: 10-15-2023 End: 01-14-2024 Basic metabolic 2000 panel - Serum or Plasma BASIC METABOLIC PANEL Lab Routine 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) Dilated cardiomyopathy (HCC) Expected: 10/15/2023, Expires: 01/14/2024 [facility] Work Phone: Comment on above: Expected: 10/15/2023, Expires: Start: 10-15-2023 End: 01-14-2024 Natriuretic peptide.B prohormone N-Terminal [Mass/volume] in Serum or Plasma NT PRO BNP Lab Routine 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) Dilated cardiomyopathy (HCC) Expected: 10/15/2023, Expires: 01/14/2024 [facility] Work Phone: Comment on above: Expected: 10/15/2023, Expires: 4 Start: 10-07-2023 ANNUAL PCP TEAM CHRONIC DISEASE VISIT ANNUAL PCP TEAM CHRONIC DISEASE VISIT [facility] Start: 10-07-2023 Hemoglobin A1c measurement HbA1C [facility] Start: 10-07-2023 Hemoglobin A1c/Hemoglobin.total in Blood HbA1C [facility] Start: 10-06-2023 HEMOGLOBIN/HEMATOCRIT HEMOGLOBIN/HEMATOCRIT [facility] Start: 10-06-2023 Hepatitis B surface antibody level LDL CHOLESTEROL [facility] Start: 10-06-2023 SERUM CREATININE SERUM CREATININE [facility] Start: 09-29-2023 BP CONTROLLED (<130/80) BP CONTROLLED (<130/80) [facility] Start: 07-07-2023 ANNUAL PCP TEAM CHRONIC DISEASE VISIT ANNUAL PCP TEAM CHRONIC DISEASE VISIT [facility] Start: 07-05-2023 Advance Directive Discussion Advance Directive Discussion [facility] Start: 07-05-2023 Behavioral Health Screening Behavioral Health Screening [facility] Start: 07-05-2023 Depression Assessment Depression Assessment [facility] Start: 07-03-2023 Hemoglobin A1c/Hemoglobin.total in Blood HBA1C [facility] Start: 05-14-2023 HEMOGLOBIN/HEMATOCRIT HEMOGLOBIN/HEMATOCRIT [facility] Start: 05-14-2023 SERUM CREATININE SERUM CREATININE [facility] Start: 04-15-2023 HEMOGLOBIN/HEMATOCRIT HEMOGLOBIN/HEMATOCRIT [facility] Start: 04-14-2023 Hepatitis C antibody, confirmatory test DILATED RETINAL EXAM [facility] Start: 04-07-2023 End: 06-07-2023 ALBUMIN/CREAT RATIO RND UR ALBUMIN/CREAT RATIO RND UR Lab Routine Type 2 diabetes mellitus with diabetic peripheral angiopathy without gangrene, without long-term current use of insulin (HCC) Expected: 04/07/2023, Expires: 06/07/2023 [facility] Work Phone: Comment on above: Expected: 04/07/2023, Expires: 3 Start: 04-07-2023 End: 06-07-2023 CBC W Auto Differential panel - Blood CBC + DIFF Lab Routine Primary hypertension Gastroesophageal reflux disease without esophagitis Chronic renal failure, stage 3b (HCC) Expected: 04/07/2023, Expires: 06/07/2023 [facility] Work Phone: Comment on above: Expected: 04/07/2023, [...] of insulin (HCC) Expected: 04/07/2023, Expires: 06/07/2023 [facility] Work Phone: Comment on above: Expected: 04/07/2023, Expires: Start: 04-07-2023 End: 06-07-2023 Ferritin [Mass/volume] in Serum or Plasma FERRITIN BLD Lab Routine Iron 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 Expected: 04/07/2023, Expires: 06/07/2023 [facility] Work Phone: Comment on above: Expected: 04/07/2023, Expires: 3 Start: 04-07-2023 End: 06-07-2023 Hemoglobin A1c in Blood HGB A1C Lab Routine Type 2 diabetes mellitus with diabetic peripheral angiopathy without gangrene, without long-term current use of insulin (HCC) Expected: 04/07/2023, Expires: 06/07/2023 [facility] Work Phone: Comment on above: Expected: 04/07/2023, Expires: 3 Start: 04-07-2023 End: 06-07-2023 Iron and Iron binding capacity panel - Serum or Plasma IRON + TIBC Lab Routine 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 Expected: 04/07/2023, Expires: 06/07/2023 [facility] Work Phone: Comment on above: Expected: 04/07/2023, Expires: Start: 04-07-2023 End: 06-07-2023 Lipid 1996 panel - Serum or Plasma LIPID PANEL BASIC Lab Routine Hyperlipidemia with target LDL less than 70 Expected: 04/07/2023, Expires: 06/07/2023 [facility] Work Phone: Comment on above: Expected: 04/07/2023, Expires: 3 Start: 04-06-2023 3 comp foot exam completed DIABETIC FOOT EXAM [facility] Start: 04-06-2023 ANNUAL PCP TEAM CHRONIC DISEASE VISIT ANNUAL PCP TEAM CHRONIC DISEASE VISIT [facility] Start: 04-06-2023 Diabetic foot examination Diabetic Foot Exam [facility] Start: 04-06-2023 HEMOGLOBIN/HEMATOCRIT HEMOGLOBIN/HEMATOCRIT [facility] Start: 04-06-2023 SERUM CREATININE SERUM CREATININE [facility] Start: 03-22-2023 HEMOGLOBIN/HEMATOCRIT HEMOGLOBIN/HEMATOCRIT [facility] Start: 03-22-2023 SERUM CREATININE SERUM CREATININE [facility] Start: 03-21-2023 HEMOGLOBIN/HEMATOCRIT HEMOGLOBIN/HEMATOCRIT [facility] Start: 03-21-2023 SERUM CREATININE SERUM CREATININE [facility] Start: 03-20-2023 HEMOGLOBIN/HEMATOCRIT HEMOGLOBIN/HEMATOCRIT [facility] Start: 03-20-2023 SERUM CREATININE SERUM CREATININE [facility] Start: 03-19-2023 ANNUAL PCP TEAM CHRONIC DISEASE VISIT ANNUAL PCP TEAM CHRONIC DISEASE VISIT [facility] Start: 03-19-2023 HEMOGLOBIN/HEMATOCRIT HEMOGLOBIN/HEMATOCRIT [facility] Start: 03-19-2023 SERUM CREATININE SERUM CREATININE [facility] Start: 03-05-2023 End: 09-29-2023 Echocardiography ECHO Cardiology Routine History of prosthetic aortic valve replacement H/O rheumatic heart disease Expected: 03/05/2023, Expires: 09/29/2023 [facility] Work Phone: Comment on above: Expected: 03/05/2023, Expires: Start: 03-05-2023 Influenza vaccination [facility] Start: 02-27-2023 HEMOGLOBIN/HEMATOCRIT HEMOGLOBIN/HEMATOCRIT [facility] Start: 02-27-2023 SERUM CREATININE SERUM CREATININE [facility] Start: 02-24-2023 HEMOGLOBIN/HEMATOCRIT HEMOGLOBIN/HEMATOCRIT [facility] Start: 02-24-2023 SERUM CREATININE SERUM CREATININE [facility] Start: 02-23-2023 HEMOGLOBIN/HEMATOCRIT HEMOGLOBIN/HEMATOCRIT [facility] Start: 02-22-2023 SERUM CREATININE SERUM CREATININE [facility] Start: 02-20-2023 ANNUAL PCP TEAM CHRONIC DISEASE VISIT ANNUAL PCP TEAM CHRONIC DISEASE VISIT [facility] Start: 02-17-2023 HEMOGLOBIN/HEMATOCRIT HEMOGLOBIN/HEMATOCRIT [facility] Start: 01-16-2023 ANNUAL PCP TEAM CHRONIC DISEASE VISIT ANNUAL PCP TEAM CHRONIC DISEASE VISIT [facility] Start: 01-09-2023 HEMOGLOBIN/HEMATOCRIT HEMOGLOBIN/HEMATOCRIT [facility] Start: 01-09-2023 SERUM CREATININE SERUM CREATININE [facility] Start: 01-01-2023 BP CONTROLLED (<130/80) BP CONTROLLED (<130/80) [facility] in Start: 12-29-2022 HEMOGLOBIN/HEMATOCRIT HEMOGLOBIN/HEMATOCRIT [facility] Start: 12-26-2022 HEMOGLOBIN/HEMATOCRIT HEMOGLOBIN/HEMATOCRIT [facility] Start: 12-16-2022 Hepatitis B screening URINE ALBUMIN:CREATININE RATIO [facility] Start: 12-15-2022 Adult depression screening assessment DEPRESSION SCREENING [facility] Start: 12-15-2022 ANNUAL PCP TEAM CHRONIC DISEASE VISIT ANNUAL PCP TEAM CHRONIC DISEASE VISIT [facility] Start: 12-15-2022 BP CONTROLLED (<130/80) BP CONTROLLED (<130/80) [facility] in Start: 12-15-2022 HEMOGLOBIN/HEMATOCRIT HEMOGLOBIN/HEMATOCRIT [facility] Start: 12-15-2022 Hepatitis B surface antibody level LDL CHOLESTEROL [facility] Start: 12-03-2022 DEPRESSION ASSESSMENT DEPRESSION ASSESSMENT [facility] Comment on above: Postponed from 07/05/2022 (Declined at t his time) Start: 11-28-2022 HEMOGLOBIN/HEMATOCRIT HEMOGLOBIN/HEMATOCRIT [facility] Start: 11-28-2022 SERUM CREATININE SERUM CREATININE [facility] Start: 10-06-2022 End: 12-06-2022 Iron and Iron binding capacity panel - Serum or Plasma IRON + TIBC Lab Routine Iron malabsorption Expected: 10/06/2022, Expires: 12/06/2022 [facility] Work Phone: Comment on above: Expected: 10/06/2022, [...] of insulin (HCC) Expected: 10/05/2022, Expires: 12/05/2022 [facility] Work Phone: Comment on above: Expected: 10/05/2022, Expires: 3 Start: 10-05-2022 End: 12-05-2022 Comprehensive metabolic 2000 panel - Serum or Plasma COMP METABOLIC PANEL Lab Routine Atrial fibrillation, unspecified type (HCC) Hyperlipidemia with target LDL less than 70 Expected: 10/05/2022, Expires: 12/05/2022 [facility] Work Phone: Comment on above: Expected: 10/05/2022, Expires: 3 Start: 09-28-2022 End: 11-28-2022 Lipid 1996 panel - Serum or Plasma LIPID PANEL BASIC Lab Routine Hyperlipidemia with target LDL less than 70 Expected: 09/28/2022, Expires: 11/28/2022 [facility] Work Phone: Comment on above: Expected: 09/28/2022, Expires: 3 Start: 09-17-2022 Hemoglobin A1c/Hemoglobin.total in Blood HBA1C [facility] Start: 09-16-2022 ANNUAL PCP TEAM CHRONIC DISEASE VISIT ANNUAL PCP TEAM CHRONIC DISEASE VISIT [facility] Start: 09-16-2022 BP CONTROLLED (<130/80) BP CONTROLLED (<130/80) [facility] Start: 09-16-2022 SHINGRIX VACCINE (2 of 2) SHINGRIX VACCINE (2 of 2) [facility] Comment on above: Postponed from 01/03/2019 (Insurance Cov erage) Start: 09-13-2022 HEMOGLOBIN/HEMATOCRIT HEMOGLOBIN/HEMATOCRIT [facility] Start: 09-02-2022 End: 05-09-2023 US KIDNEY/BLADDER US KIDNEY/BLADDER Radiology Routine Neoplasm of uncertain behavior of right kidney Expected: 09/02/2022, Expires: 05/09/2023 [facility] Work Phone: Comment on above: Expected: 09/02/2022, Expires: 3 Start: 07-07-2022 End: 05-06-2023 Ct thorax w/o contrast material CT CHEST WO IVCON Radiology Routine Lung nodule, solitary Expected: 07/07/2022, Expires: 05/06/2023 [facility] Work Phone: Comment on above: Expected: 07/07/2022, Expires: 3 Start: 07-05-2022 ADVANCE DIRECTIVE DISCUSSION ADVANCE DIRECTIVE DISCUSSION [facility] Start: 07-05-2022 DEPRESSION ASSESSMENT DEPRESSION ASSESSMENT [facility] Start: 06-16-2022 Hemoglobin A1c/Hemoglobin.total in Blood HBA1C [facility] Start: 06-02-2022 SERUM CREATININE SERUM CREATININE [facility] Start: 05-07-2022 End: 07-07-2022 Basic metabolic 2000 panel - Serum or Plasma BASIC METABOLIC PNL Lab Routine Stage 3b chronic kidney disease (HCC) Iron deficiency anemia due to chronic blood loss Expected: 05/07/2022, Expires: 07/07/2022 [facility] Work Phone: Comment on above: Expected: 05/07/2022, Expires: 3 Start: 05-07-2022 End: 07-07-2022 CBC panel - Blood by Automated count CBC Lab Routine Stage 3b chronic kidney disease (HCC) Iron deficiency anemia due to chronic blood loss Expected: 05/07/2022, Expires: 07/07/2022 [facility] Work Phone: Comment on above: Expected: 05/07/2022, Expires: 3 Start: 03-30-2022 End: 05-30-2022 Basic metabolic 2000 panel - Serum or Plasma BASIC METABOLIC PNL Lab Routine Primary hypertension Expected: 03/30/2022, Expires: 05/30/2022 [facility] Work Phone: Comment on above: Expected: 03/30/2022, Expires: 2 Start: 03-05-2022 Influenza vaccination INFLUENZA (#1) [facility] Start: 02-20-2022 End: 04-22-2022 Basic metabolic 2000 panel - Serum or Plasma [facility] Work Phone: Comment on above: Expected: 02/20/2022, Expires: 2 Start: 02-19-2022 Hepatitis C antibody, confirmatory test DILATED RETINAL EXAM [facility] Start: 01-21-2022 End: 01-21-2023 SARS-CoV-2 (COVID-19) RNA [Presence] in Respiratory specimen by RANDOLPH with probe detection PRE-PROCEDURE & PRE-OPERATIVE COVID Microbiology Routine Paroxysmal atrial fibrillation (HCC) Expected: 01/21/2022, Expires: 01/21/2023 [facility] Work Phone: Comment on above: Expected: 01/21/2022, Expires: 3 Start: 12-30-2021 Administration of blood product [facility] Work Phone: Start: 12-30-2021 [facility] Work Phone: Start: 12-27-2021 End: 02-26-2022 CBC W Auto Differential panel - Blood CBC + DIFF Lab Routine Anemia, unspecified type Expected: 12/27/2021, Expires: 02/26/2022 [facility] Work Phone: Comment on above: Expected: 12/27/2021, Expires: 2 Start: 12-27-2021 End: 02-26-2022 Iron and Iron binding capacity panel - Serum or Plasma IRON + TIBC Lab Routine Anemia, unspecified type Expected: 12/27/2021, Expires: 02/26/2022 [facility] Work Phone: Comment on above: Expected: 12/27/2021, Expires: 2 Start: 12-15-2021 End: 02-14-2022 ALBUMIN/CREAT RATIO RND UR ALBUMIN/CREAT RATIO RND UR Lab Routine Type 2 diabetes mellitus with diabetic peripheral angiopathy without gangrene, without long-term current use of insulin (HCC) Expected: 12/15/2021, Expires: 02/14/2022 [facility] Work Phone: Comment on above: Expected: 12/15/2021, Expires: 2 Start: 12-11-2021 Hepatitis B surface antibody level LDL CHOLESTEROL [facility] Start: 11-26-2021 End: 01-26-2022 CBC panel - Blood by Automated count CBC Lab Routine PAD (peripheral artery disease) (HCC) Anemia due to chronic illness Expected: 11/26/2021, Expires: 01/26/2022 [facility] Work Phone: Comment on above: Expected: 11/26/2021, Expires: 2 Start: 11-26-2021 End: 01-26-2022 Renal function 2000 panel - Serum or Plasma RENAL FUNCTION PANEL Lab Routine PAD (peripheral artery disease) (HCC) Expected: 11/26/2021, Expires: 01/26/2022 [facility] Work Phone: Comment on above: Expected: 11/26/2021, Expires: 2 Start: 07-13-2021 COVID-19 VACCINE (4 - Booster for Pfizer series) COVID-19 VACCINE (4 - Booster for Pfizer series) [facility] Start: 07-12-2021 Hepatitis B screening URINE ALBUMIN:CREATININE RATIO [facility] Start: 07-05-2021 ADVANCE DIRECTIVE DISCUSSION ADVANCE DIRECTIVE DISCUSSION [facility] Start: 07-05-2021 DEPRESSION ASSESSMENT DEPRESSION ASSESSMENT [facility] Start: 06-12-2021 Hemoglobin A1c/Hemoglobin.total in Blood HBA1C [facility] Start: 05-08-2021 COVID-19 VACCINE (4 - Booster for Pfizer series) COVID-19 VACCINE (4 - Booster for Pfizer series) [facility] Start: 05-08-2021 COVID-19 VACCINE (4 - Pfizer series) COVID-19 VACCINE (4 - Pfizer series) [facility] Start: 2020 RSV Vaccine (1 - 1-dose 75+ series) RSV Vaccine (1 - 1-dose 75+ series) [facility] Start: 07-18-2020 Adult depression screening assessment DEPRESSION SCREENING [facility] Start: 05-25-2019 End: 05-25-2019 Office Visit 05/25/2019 Office Visit Cardiovascular Medicine Mars Chung, DO [address] [place] [address] [facility] Start: 03-05-2019 Influenza vaccination INFLUENZA VACCINE (#1) [facility] Start: 01-03-2019 SHINGRIX VACCINE (2 of 2) SHINGRIX VACCINE (2 of 2) [facility] Start: 01-08-2015 3 comp foot exam completed DIABETIC FOOT EXAM [facility] Start: 2010 Pneumococcal vaccination PNEUMOCOCCAL VACCINE SERIES (1 of 2 - PCV13) [facility] Start: 2005 Hepatitis B Vaccine (1 of 3 - Risk 3-dose series) Hepatitis B Vaccine (1 of 3 - Risk 3-dose series) [facility] Start: 2005 RSV Vaccine (1 - 1-dose 60+ series) RSV Vaccine (1 - 1-dose 60+ series) [facility] Start: 1995 Colonoscopy COLON CANCER SCREENING DISCUSSION [facility] Start: 1995 Zoster vaccine hzv live for subcutaneous use ZOSTER (SHINGLES) VACCINE (1 of 2) [facility] Start: 1985 Fasting lipid profile LIPID SCREENING [facility] Start: 1985 Screening mammography MAMMOGRAM SCREENING DISCUSSION [facility] Start: 1966 Screening for malignant neoplasm of cervix PAP SMEAR DISCUSSION [facility] Start: 1964 Third diphtheria, tetanus and acellular pertussis (DTaP) vaccination TDAP (ADULT) [facility] Start: 1963 Anxiety Screening Anxiety Screening [facility] Start: 1963 BP CONTROLLED (<130/80) BP CONTROLLED (<130/80) [facility] in Start: 1963 Depression Screening Depression Screening [facility] Start: 1963 Tetanus vaccination TETANUS [facility] Start: 1945 Hepatitis C antibody, confirmatory test HEPATITIS C VIRUS SCREENING [facility] Start: 1945 Potassium [Moles/Vol] POTASSIUM [facility] Start: 1945 Screening for osteoporosis DEXA SCAN DISCUSSION [facility] COVID & INFLUENZA A/ B & RSV NAAT, ROUTINE COVID & INFLUENZA A/B & RSV NAAT, ROUTINE Microbiology Routine Influenza-like illness Ordered: 07/05/2023 [facility] Work Phone: Comment on above: Ordered: 07/05/2023 End: 01-21-2023 ECG COMPLETE ECG COMPLETE ECG Routine Paroxysmal atrial fibrillation (HCC) 1 Occurrences starting 01/21/2022 until 01/21/2023 [facility] Work Phone: Comment on above: 1 Occurrences starting 01/21/2022 until 01/21/2023 End: 02-09-2023 ECG COMPLETE ECG COMPLETE ECG Routine Paroxysmal atrial fibrillation (HCC) Presence of Watchman left atrial appendage closure device 1 Occurrences starting 02/09/2022 until 02/09/2023 [facility] Work Phone: Comment on above: 1 Occurrences starting 02/09/2022 until 02/09/2023 End: 03-19-2023 ECG COMPLETE ECG COMPLETE ECG Routine Aortic prosthetic valve regurgitation, 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) 1 Occurrences starting 03/19/2022 until 03/19/2023 [facility] Work Phone: Comment on above: 1 Occurrences starting 03/19/2022 until 03/19/2023 ECG COMPLETE ECG COMPLETE ECG 03/19/2022 11:04 AM EDT [facility] ECG COMPLETE [facility] Work Phone: Comment on above: Ordered: 10/18/2023 ECG COMPLETE ECG COMPLETE ECG 11/08/2023 4:52 PM EDT [facility] End: 01-21-2023 ECHO TRANSESOPHAGEAL ECHO TRANSESOPHAGEAL Cardiology Routine Paroxysmal atrial fibrillation (HCC) 1 Occurrences starting 01/21/2022 until 01/21/2023 [facility] Work Phone: Comment on above: 1 Occurrences starting 01/21/2022 until 01/21/2023 End: 02-09-2023 ECHO TRANSESOPHAGEAL ECHO TRANSESOPHAGEAL Cardiology Routine Paroxysmal atrial fibrillation (HCC) Presence of Watchman left atrial appendage closure device 1 Occurrences starting 02/09/2022 until 02/09/2023 [facility] Work Phone: Comment on above: 1 Occurrences starting 02/09/2022 until 02/09/2023 ECHO TRANSESOPHAGEAL ECHO TRANSE SOPHAGEAL Cardiology Routine Longstanding persistent atrial fibrillation (HCC) Presence of Watchman left atrial appendage closure device Ordered: 03/04/2022 [facility] Work Phone: Comment on above: Ordered: 03/04/2022 End: 10-17-2024 Echocardiography ECHO Cardiology Routine Acute systolic CHF (congestive heart failure) (HCC) 1 Occurrences starting 10/18/2023 until 10/17/2024 [facility] Work Phone: Comment on above: 1 Occurrences starting 10/18/2023 until 10/17/2024 End: 01-01-2026 Echocardiography ECHO Cardiology Routine Chronic diastolic (congestive) heart failure (HCC) History of prosthetic aortic valve replacement Acute on chronic diastolic congestive heart failure (HCC) 1 Occurrences starting 01/01/2025 until 01/01/2026 [facility] Work Phone: Comment on above: 1 Occurrences starting 01/01/2025 until 01/01/2026 End: 01-01-2023 EGD DIAGNOSTIC EGD DIAGNOSTIC Endoscopy Routine Acute blood loss anemia Heme + stool Epigastric pain 1 Occurrences starting 01/01/2022 until 01/01/2023 [facility] Work Phone: Comment on above: 1 Occurrences starting 01/01/2022 until 01/01/2023 Hemoglobin.gastroint estin al.lower [Presence] in Stool by Immunoassay FECAL OCCULT BLOOD TEST Lab Routine Heme + stool Ordered: 12/15/2021 [facility] Work Phone: Comment on above: Ordered: 12/15/2021 Hemoglobin.gastroint estin al.lower [Presence] in Stool by Immunoassay IMMUNOCHEMICAL FECAL OCCULT BLOOD TEST Lab Routine Acute systolic CHF (congestive heart failure) (HCC) Ordered: 11/04/2023 [facility] Work Phone: Comment on above: Ordered: 11/04/2023 End: 08-06-2023 Mra head w/o & w/contrast material MRA BRAIN WO/W IVCON Radiology Routine 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 1 Occurrences starting 07/07/2022 until 08/06/2023 [facility] Work Phone: Comment on above: 1 Occurrences starting 07/07/2022 until 08/06/2023 End: 01-08-2024 PVR ANK PRESS [facility] PVR ANK PRESS [facility] Vascular Lab Routine 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HCC) Pain in both lower legs Atherosclerosis of [place] artery of both lower extremities with intermittent claudication (HCC) 1 Occurrences starting 01/07/2023 until 01/08/2024 [facility] Work Phone: Comment on above: 1 Occurrences starting 01/07/2023 until 01/08/2024 End: 01-08-2024 PVR LEG [facility] PVR LEG [facility] Vascular Lab Routine 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HCC) Pain in both lower legs Atherosclerosis of [place] artery of both lower extremities with intermittent claudication (HCC) 1 Occurrences starting 01/07/2023 until 01/08/2024 [facility] Work Phone: Comment on above: 1 Occurrences starting 01/07/2023 until 01/08/2024 SURGICAL PATHOLOGY [facility] Work Phone: Comment on above: Release Upon Ordering for 1 Occurrences starting 01/02/2022, 1 completed End: 01-08-2024 US CAROTID ARTERIES [facility] US CAROTID ARTERIES [facility] Vascular Lab Routine Bilateral carotid artery stenosis 1 Occurrences starting 01/07/2023 until 01/08/2024 [facility] Work Phone: Comment on above: 1 Occurrences starting 01/07/2023 until 01/08/2024 End: 12-20-2025 US Mesenteric arteries US MESENTERIC ARTERY [facility] Vascular Lab Routine Superior mesenteric artery stenosis (HCC) 1 Occurrences starting 12/20/2024 until 12/20/2025 [facility] Work Phone: Comment on above: 1 Occurrences starting 12/20/2024 until 12/20/2025 [facility] Immunizations Immunization Date Immunization Notes Care Provider Fa [facility] 07-07-2024 influenza, high dose seasonal, preservative-free Melida Koo APRN.MANPOWER DEVELOPMENT SPECIALIST MANAGER Work Phone: [facility] 04-12-2023 influenza (HD-IIV4) vaccine, age 65+ yr, high dose, quadrivalent, PF (FLUZONE HIGH-DOSE) Ct (I-Stat) Work Phone: [facility] 04-12-2023 influenza virus vacc ine, unspecified formulation Carla Burdick MD Work Phone: [facility] 05-22-2022 influenza (aIIV4) vaccine, age 65+ yr, quadrivalent, PF (FLUAD QUADRIVALENT) NA Rey HAMLIN Work Phone: [facility] 05-22-2022 influenza, high-dose , quadrivalent vaccine (FLUZONE HIGH DOSE QUADRIVALENT) Sonny Lund MD Work Phone: [facility] 05-22-2022 influenza virus vacc ine, unspecified formulation Yin Joseph MD Work Phone: [facility] 05-20-2021 influenza, high-dose , quadrivalent vaccine (FLUZONE HIGH DOSE QUADRIVALENT) Chandler Swan MD Work Phone: [facility] 10-09-2020 COVID-19 vaccine, ag e 12+ yr (PFIZER-BIONTECH - PURPLE TOP) Chandler Swan MD Work Phone: [facility] 09-18-2020 COVID-19 vaccine, ag e 12+ yr (PFIZER-BIONTECH - PURPLE TOP) Chandler Swan MD Work Phone: [facility] 05-17-2020 influenza, high-dose , quadrivalent vaccine (FLUZONE HIGH DOSE QUADRIVALENT) Chandler Swan MD Work Phone: [facility] 05-09-2019 influenza, high dose seasonal, preservative-free Chandler wSan MD Work Phone: [facility] 11-08-2018 zoster vaccine recombinant Chandler Swan MD Work Phone: [facility] Work Phone: 05-09-2018 Seasonal trivalent influenza vaccine, adjuvanted, preservative free Chandler Swan MD Work Phone: [facility] 05-05-2017 influenza nasal, unspecified formulation Chandler Swan MD Work Phone: [facility] 05-05-2017 influenza, injectabl e, quadrivalent, contains preservative Chandler Swan MD Work Phone: [facility] 05-05-2017 influenza, seasonal, injectable Chandler Swan MD Work Phone: [facility] 05-05-2017 influenza virus vacc ine, unspecified formulation Mars Chung [facility] 04-05-2017 influenza, injectabl e, quadrivalent, preservative free Ct (I-Stat) Work Phone: [facility] 04-05-2017 influenza, seasonal, injectable [facility] 04-05-2017 influenza, seasonal, injectable, preservative free Chandler Swan MD Work Phone: [facility] 11-25-2016 pneumococcal conjuga te vaccine, 13 valent Chandler Swan MD Work Phone: [facility] Work Phone: 04-07-2016 influenza, high dose seasonal, preservative-free Chandler Swan MD Work Phone: [facility] Work Phone: 01-08-2014 tetanus toxoid, redu javid diphtheria toxoid, and acellular pertussis vaccine, adsorbed Chandler Swan MD Work Phone: [facility] Work Phone: 06-06-2013 pneumococcal polysaccharide vaccine, 23 valent Chandler Swan MD Work Phone: [facility] 05-14-2013 influenza nasal, unspecified formulation Chandler Swan MD Work Phone: [facility] 05-14-2013 influenza virus vacc ine, unspecified formulation Chandler Swan MD Work Phone: [facility] 05-14-2013 influenza, seasonal, injectable, preservative free Chandler Swan MD Work Phone: [facility] 05-20-2012 influenza, seasonal, injectable Chandler Swan MD Work Phone: [facility] 04-29-2011 influenza, seasonal, injectable, preservative free Chandler Swan MD Work Phone: [facility] 04-23-2009 influenza, seasonal, injectable Chandler Swan MD Work Phone: [facility] 07-07-1999 pneumococcal polysaccharide vaccine, 23 valkathy Encinas MD Work Phone: [facility] Work Phone: 07-05-1999 pneumococcal polysaccharide vaccine, 23 valkathy Swan MD Work Phone: [facility] Payers Date Payer Category Payer Self-pay [id number] 2021 Medicare [id number] 2021 Medicare [id number] 2021 Medicare (Managed Care) PRADEEP NICKERSON [id number] 2021 Private Health Insurance 101 [id number] 2019 Medicare MEDICARE HUMANA HMO PPO MEDICARE HUMANA HMO PPO xxxxxxxxx 2019-Present xxxxxxxxx [id number] 2015 Medicare SELF PAY INSURANCE [id number] Unknown [id number] Unknown [id number] Social History Date Type Detail Facility Start: 01-19-2019 End: 04-07-2024 Tobacco smoking status NHIS Former smoker [facility] Start: 01-19-2019 Tobacco Comment smoked for a y ear, 50 years ago [facility] Start: 01-19-2019 Alcohol Comment occasional wine [facility] Start: 1945 Sex Assigned At Not on file A [employer] Start: 07-05-1965 End: 02-11-1970 History of tobacco use Current smoker [facility] Start: 08-10-2019 End: 04-07-2024 Tobacco use and exposure Smokeless tobacco non-user [facility] Start: 09-16-2021 End: 12-15-2021 Alcohol intake Current drinker of alcohol (finding) [facility] Start: 09-16-2021 End: 01-07-2023 Alcohol intake [facility] Start: 10-25-2019 End: 10-29-2019 History SDOH Alcohol Frequency 2 [facility] Start: 10-25-2019 End: 10-29-2019 History SDOH Alcohol Std Drinks 1 [facility] Start: 01-31-2019 History SDOH Alcohol Comment red wine 2-3 times a week- occasional [facility] Start: 10-29-2019 History SDOH Social Connections Phone 5 [facility] Start: 10-29-2019 End: 02-24-2022 History SDOH Social Connections [facility] 3 [facility] Start: 10-29-2019 Education 15 [facility] Start: 09-05-2021 End: 05-14-2022 Exposure to SARS-CoV-2 (event) Not sure [facility] Start: 10-14-2021 End: 01-23-2022 Exposure to SARS-CoV-2 (event) Unable to assess [facility] Start: 02-13-2021 Tobacco smoking stat us MTIS Unknown if ever smoked [facility] Work Phone: Start: 1945 Sex Assigned At Female [facility] Work Phone: Start: 07-05-1965 End: 02-11-1970 History of tobacco use Cigarette Smoker [facility] Start: 06-08-2022 End: 01-01-2025 Alcohol intake Ex-drinker (finding) [facility] Start: 01-07-2023 End: 12-11-2024 Tobacco use panel [facility] How hard is it for y ou to pay for the very basics like food, housing, medical care, and heating Patient refused [facility] (I/We) worried wheth er (my/our) food would run out before (I/we) got money to buy more. DK or Refused [facility] Do you belong to any clubs or organizations such as pentecostalism groups, unions, fraternal or athletic groups, or school groups? Yes [facility] Are you now , , , , never or living with a partner? [facility] How often to you hav e a drink containing alcohol? Monthly or less [facility] How many standard dr inks containing alcohol do you have on a typical day? 1 or 2 [facility] How often do you hav e 6 or more drinks on 1 occasion? Never [facility] Do you feel stress - tense, restless, nervous, or anxious, or unable to sleep at night because your mind is troubled all the time - these days [OSQ] Not at all [facility] Has the [employer], [employer], [employer], or water [employer] threatened to shut off services in your home in past 12Mo No [facility] (I/We) worried wheth er (my/our) food would run out before (I/we) got money to buy more. Never true [facility] Medical Equipment Procedure Code Equipment Code Equipment Origin al Text Equipment Identifier Dates Test blood sugar (s) 2 times daily. Dx: Type 2 DM - Controlled E11.9 Insulin: No [id number] Start: 01-19-2019 Comment on above: Test blood sugar(s) 2 times daily. Dx: Type 2 DM - Controlled E11.9 Insulin: No [id number] Sania Xt [id number] Start: 10-21-2020 [id number] [employer] Mri Surescan [id number] Start: 10-21-2020 [id number] Andree Hawkins [id number] Start: 10-21-2020 Goals Date Patient Goal Desired Activity /State Personal health goal Functional Status Date Assessment Result Facility 12-12-2024 Are you deaf, or do you have serious difficulty hearing Yes 12/12/2024 10:12 AM EDT Lizeth Jordan, DOUG Yes [facility] 12-12-2024 Are you blind, or do you have serious difficulty seeing, even when wearing glasses No 12/12/2024 10:12 AM EDT Lizeth Jordan, DOUG No [facility] 12-12-2024 Do you have serious difficulty walking or climbing stairs No 12/12/2024 10:12 AM EDT Lizeth Jordan RN No [facility] 12-12-2024 Do you have difficul ty dressing or bathing No 12/12/2024 10:12 AM EDT Lizeth Jordan, DOUG No [facility] 12-12-2024 Because of a physica l, mental, or emotional condition, do you have difficulty doing errands alone such as visiting a physician's office or shopping No 12/12/2024 10:12 AM EDT Lizeth Jordan RN No [facility] 11-12-2023 Are you deaf, or do you have serious difficulty hearing No 11/12/2023 3:37 PM EDT Raina Coppola RN No [facility] 11-12-2023 Are you blind, or do you have serious difficulty seeing, even when wearing glasses No 11/12/2023 3:37 PM ADIELT Raina Coppola RN No [facility] 11-12-2023 Do you have serious difficulty walking or climbing stairs No 11/12/2023 3:37 PM ADIELT Raina Coppola RN No [facility] 11-12-2023 Do you have difficul ty dressing or bathing No 11/12/2023 3:37 PM ADIELT Raina Coppola RN No [facility] 11-12-2023 Because of a physica l, mental, or emotional condition, do you have difficulty doing errands alone such as visiting a physician's office or shopping No 11/12/2023 3:37 PM EDT Raina Coppola, DOUG No [facility] Mental Status Date Assessment Result Facility 12-12-2024 Because of a physica l, mental, or emotional condition, do you have serious difficulty concentrating, remembering, or making decisions No 12/12/2024 10:12 AM EDT Lizeth Jordan, DOUG No [facility] 11-12-2023 Because of a physica l, mental, or emotional condition, do you have serious difficulty concentrating, remembering, or making decisions No 11/12/2023 3:37 PM EDT Raina Coppola, DOUG No [facility] 12-30-2021 Cognitive function Voice/Name [facility] Work Phone: Clinical Notes 02-15-2021 to 01-01-2025 Patient InstructionsCarla Burdick MD - 01/01/2025 11:00 AM EDTTelephone Encounter - Albin Gu APRN.MANPOWER DEVELOPMENT SPECIALIST MANAGER - 12/26/2024 9:44 AM EDTBLars finney DO [...] work next wednesday documented in this encounter [facility] 01-01-2025 History of Present illness Narrative Images from the original note were not included. [facility] SECTION OF REGIONAL CARDIOLOGY Cardiology ([facility]) [address] [id number] OUTPATIENT VISIT DATE 01/01/2025 PRIMARY CARE PHYSICIAN: Doreen Le [address] [place] [address] HISTORY OF PRESENT ILLNESS: Ms. Sanches is a 79 year old woman with a history of remote aortic valve replacement with homograft in 1996 and possible repair of the ascending aorta, chronic diastolic congestive heart failure, hypertension, dyslipidemia, atrial fibrillation with history of pulmonary vein isolation procedures, pacemaker placement and watchman procedure who presents for follow-up. Patient was admitted to [facility]. She was discharged after 2 days. 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 Lua PACEMAKER 10/2019 PART. HYSTERECTOMY W/WO RMVL OVARIES/TUBES 1974 h/o cervical cancer ovaries remain PAST SURGICAL HISTORY OF 1996 Aortic valve repair, Dr. Apodaca PAST SURGICAL HISTORY OF 2001 [address] Beltrán, [facility] PAST SURGICAL HISTORY OF 2015 clipping [...] !SVR !1650dyn-sec/cm5 ! + +------- + !SVRI !1530msp-jdq-p^2/cm5 ! + +------- + !PVR !544dyn-sec/cm5 ! + +------- + !PVRI !020gqg-pox-o^2/cm5 ! + +------- + !Total systemic resistance!2097dyn-sec/cm5, 8023syt-xyy-w^2/cm5! Echocardiogram [facility] 10/03/2024: 1. Left ventricle: The cavity [...] or suggestive of Atrial Fibrillation * AT/AF [place]: 67.8% * Total number of events: 2774 Tachycardia: AF w/RVR * Stored EGMs listed as NSVT AND SVT are consistent with or suggestive of Atrial Fibrillation with Rapid Ventricular Response * AT/AF [place]: 67.8% * Total episodes: 9 * Longest [...] testing. She underwent SMA stent placement at [facility] September 2024. She has been treated for [...] Carla Burdick MD documented in this encounter [facility] 01-01-2025 Note HNO ID: [id number] Author: CARLA BURDICK MD Service: ? Author Type: Physician Type: Progress Notes Filed: 01/01/2025 12:27 Note Text: [facility] SECTION OF REGIONAL CARDIOLOGY Cardiology ([facility]) [address] [facility] [id number] OUTPATIENT VISIT DATE 01/01/2025 PRIMARY CARE PHYSICIAN: Doreen Le [address] [place] [address] HISTORY OF PRESENT ILLNESS: Ms. Sanches is a 79 year old woman with a history of remote aortic valve replacement with homograft in 1996 and possible repair of the ascending aorta, chronic diastolic congestive heart failure, hypertension, dyslipidemia, atrial fibrillation with history of pulmonary vein isolation procedures, pacemaker placement and watchman procedure who presents for follow-up. Patient was admitted to [facility]. She was discharged after 2 days. 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 Lua PACEMAKER 10/2019 PART. HYSTERECTOMY W/WO RMVL OVARIES/TUBES 1974 h/o cervical cancer ovaries remain PAST SURGICAL HISTORY OF 1996 Aortic valve repair, Dr. Apodaca PAST SURGICAL HISTORY OF 2001 [address] Beltrán, [facility] PAST SURGICAL HISTORY OF 2016 clipping [...] mg iron) tabl (more content not included)... [facility] 12-26-2024 Telephone encounter Note Patient called to [...] answered at this time. Albin Gu APRN.JASPREET [facility] 12-26-2024 Miscellaneous Notes Patient called to report [...] Albin Gu APRN.CNP documented in this encounter [facility] 12-20-2024 Note HNO ID: [id number] Author: LARS SILVA, DO Service: ? Author Type: Physician Type: Progress Notes Filed: 12/20/2024 17:56 Note Text: Heart , Vascular and Thoracic [place] DEPARTMENT OF VASCULAR SURGERY OUTPATIENT VISIT DATE [...] clinic. She had a stent placed in [place] in September. She was recently admitted to [place] for anemia. She has noted increased swelling. 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 Lua PACEMAKER 10/2019 PART. HYSTERECTOMY W/WO RMVL OVARIES/TUBES 1974 h/o cervical cancer ovaries remain PAST SURGICAL HISTORY OF 1996 Aortic valve repair, Dr. Apodaca PAST SURGICAL HISTORY OF 2001 [address] Beltrán, [facility] PAST SURGICAL HISTORY OF 2015 clipping [...] on 01/12/22, treate (more content not included)... [facility] 12-20-2024 History of Present illness Narrative Images from the original note were not included. Heart , Vascular and Thoracic [place] DEPARTMENT OF VASCULAR SURGERY OUTPATIENT VISIT DATE December 20, 2024 OUTPATIENT VISIT TYPE ESTABLISHED SERVICE DATE: 12/20/2024 SERVICE TIME: 8:53 AM PRIMARY CARE PHYSICIAN: Deysi Nicholson APRN.MANPOWER DEVELOPMENT SPECIALIST MANAGER HISTORY OF PRESENT ILLNESS: Ms. Sanches is a 79 year old female who presents today for a vascular surgery follow-up visit follow up on mesenteric duplex. She recently increased her lasix at the CHF clinic. She had a stent placed in [place] in September. She was recently admitted to [facility] [place] for anemia. She has noted increased swelling. 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 Lua PACEMAKER 10/2019 PART. HYSTERECTOMY W/WO RMVL OVARIES/TUBES 1973 h/o cervical cancer ovaries remain PAST SURGICAL HISTORY OF 1996 Aortic valve repair, Dr. Apodaca PAST SURGICAL HISTORY OF 2001 [address] Beltrán, [facility] PAST SURGICAL HISTORY OF 2015 clipping [...] TIME: 8:53 AM documented in this encounter [facility] 12-19-2024 Note HNO ID: [id number] Author: GWEN VALENTINE RN Service: ? Author [...] bleeding or swelling noted. Pt tolerated well. [facility] 12-19-2024 History of Present illness Narrative [...] note were not included. Heart and Vascular [place] [facility] Heart Failure Clinic OUTPATIENT VISIT DATE [...] and was worried about traveling home to [place] in a few days. Discussed with her taking lasix as it was prescribed. As her spironolactone was stopped, did advise patient restart this at 25 mg once a day for four days only. She was instructed to call office in a week to review symptoms. On 10/15, patient presented back to [facility] for gastrointestinal bleed. She had a colonoscopy [...] and entresto. The patient wished to leave [place] so she could return to [place]. Cardiology and Pulmonary agreed with discharge. 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 Lua PACEMAKER 10/2019 PART. HYSTERECTOMY W/WO RMVL OVARIES/TUBES 1974 h/o cervical cancer ovaries remain PAST SURGICAL HISTORY OF 1996 Aortic valve repair, Dr. Apodaca PAST SURGICAL HISTORY OF 2001 2001 and [address] Beltrán, [facility] PAST SURGICAL HISTORY OF 2015 clipping [...] impression and interpretation as noted. Federico Hammonds [id number] DEVICE CHECK 10/04/2024: Tachycardia: AF * Stored EGMs are consistent with or suggestive of Atrial Fibrillation * AT/AF [place]: 67.8% * Total number of events: 2774 Tachycardia: AF w/RVR * Stored EGMs listed as NSVT AND SVT are consistent with or suggestive of Atrial Fibrillation with Rapid Ventricular Response * AT/AF [place]: 67.8% * Total episodes: 9 * Longest episode: 28 SECS * Fastest episode:207 BPM Remote Device Evaluation [employer] [facility] * Device type: DUAL LEAD PACEMAKER * Presenting Rhythm: AF/ VS * Battery Status: Battery is at OK, 9.83 yrs . * Atrial Arrhythmias: There have been 12 atrial detections. Anticoagulants listed: _LAAC____ * Ventricular Arrhythmias: There have been __0 TRUE_ ventricular detections. * Lead Measurements: Capture thresholds, sensing, and lead impedances are appropriate. * Other Diagnostics: AP 64.4 ADJUNCT FACULTY FOR MEDICAL TERMINOLOGY 9.3% Tachycardia: AF * Stored EGMs are consistent with or suggestive of Atrial Fibrillation * AT/AF [place]: 8.2% (THIS PERCENT IS INACCCURATE,LIKELY CLOSER TO [...] Discussed red flags and when to call MD/MANAGER CONFIGURATION or go to ED. Medications reconciled at end of visit: yes I spent 40 minutes in this visit, with more than 50% of the time devoted to patient counseling. Recording using [employer] software for draft documentation was discussed with patient/authorized membership sales representative. All questions were welcome and answered. Patient/authorized membership sales representative agreed to proceed. SIGNATURE: Albin Gu APRN.CNP PATIENT NAME: Berta Sanches DATE: December 19, 2024 TIME: 1100 documented in this encounter [facility] 12-19-2024 Note HNO ID: [id number] Author: ALBIN GU APRN.CNP Service: ? Author Type: Nurse Practitioner Type: Progress Notes Filed: 12/19/2024 11:45 Note Text: Heart [facility] Vascular [place] [facility] Heart Failure Clinic OUTPATIENT VISIT DATE [...] and was worried about traveling home to [place] in a few days. Discussed with her taking lasix as it was prescribed. As her spironolactone was stopped, did advise patient restart this at 25 mg once a day for four days only. She was instructed to call office in a week to review symptoms. On 10/15, patient presented back to [facility] for gastrointestinal bleed. She had a colonoscopy [...] and entresto. The patient wished to leave [place] so she could return to [place]. Cardiology and Pulmonary agreed with discharge. Patient [...] her sodium intake (more content not included)... [facility] 12-19-2024 Instructions Albin Gu APRN.MANPOWER DEVELOPMENT SPECIALIST MANAGER - 12/19/2024 10:59 AM EDT 40 mg [...] or concern, you can call me at [phone]. documented in this encounter [facility] 12-13-2024 Telephone encounter Note [facility] Action / FYI: N/A SUMMARY: Outreach type: INITIAL OUTREACH Discharge Network Status: In-Network Discharge Source of Patient: [facility] TCM Discharge Report Patient discharged from [place] on December 12. Admitted for Acute on chronic diastolic CHF (congestive heart failure) (HCC). Contact made with patient: No - next outreach attempt will be on next . Alex Betancourt December 13, 2024 9:35 AM [facility] 12-13-2024 Miscellaneous Notes [facility] Action / FYI: N/A SUMMARY: Outreach type: INITIAL OUTREACH Discharge Network Status: In-Network Discharge Source of Patient: [facility] TCM Discharge Report Patient discharged from [place] [place] on December 12. Admitted for Acute on chronic diastolic CHF (congestive heart failure) (HCC). Contact made with patient: No - next outreach attempt will be on next day. Alex Betancourt December 13, 2024 9:35 AM documented in this encounter [facility] 12-12-2024 Note HNO ID: [id number] Author: STACIE LONDONO RN Service: Care Management [...] Primary Care Physician Name/Phone: Deysi Nicholson APRN.JASPREET [phone] Additional Information: na Discharge order written for today, patient discharged home with no services. Family will transport. SIGNATURE: Stacie Londono RN PATIENT NAME: Berta Sanches DATE: December 12, 2024 TIME: 9:13 AM [facility] 12-11-2024 Telephone encounter Note Noted. Deysi Nicholson APRN.CNP [facility] 12-11-2024 Miscellaneous Notes Noted. Deysi Nicholson APRN.CNP Pt re admitted to [facility]. Sigifredo Rivera LPN Patient called to cancel hospital follow up due to re admission yesterday 12/10/2024 documented in this encounter [facility] 12-11-2024 Note HNO ID: [id number] Author: MAXIMINO JENNINGS, DOUG Service: Care Management Author Type: Registered Nurse Type: Care Mgt Initial Assessment Filed: 12/11/2024 11:51 Note Text: CARE MANAGEMENT: ASSESSMENT AND DISCHARGE PLAN SERVICE DATE: December 11, 2024 SERVICE TIME: 11:50 AM PCP: Deysi Nicholson APRN.CNP Primary Contact: Extended Emergency Contact Information Primary Emergency Contact: Natanael Sanches Address: [address] [place] [address] Mobile Relation: Spouse Admission Status: Inpatient Insurance Provider: [employer] PPO Discharge Planning requested by: Per Department Practice Potential Transition Plans Home Advance Directives Current Advance Directive: Living Will, Health Care Power of Adjunct Faculty Instructor In Chart: No Current Living Arrangements and [...] None Discharge Planning Patient Goal(s): General wellness Hubbard of Choice Explained: Hubbard of Choice Given: No Reason Not Given: [...] assessment. 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 to transport upon DC. CM assigned will continue to follow for DC planning needs. SIGNATURE: Maximino Jennings RN PATIENT NAME: Berta Sanches DATE: December 11, 2024 TIME: 11:50 AM [facility] 12-11-2024 Note HNO ID: [id number] Author: JUAN DIEGO BYRD MD Service: Hospital [...] colitis s/p SMA stenting 09/2024 in [facility], hx of AVR, CKD3. Patient [...] Byrd MD DATE: 12/11/2024 TIME: 11:47 AM [facility] 12-11-2024 Telephone encounter Note Pt re admitted to [facility]. Sigifredo Rivera LPN [facility] 12-11-2024 Telephone encounter Note Patient called to cancel hospital follow up due to re admission yesterday 12/10/2024 [facility] 11-20-2024 History of Present illness Narrative Images from the original note were not included. [facility]STITUTE SECTION OF REGIONAL CARDIOLOGY Cardiology ([facility]) [address] [facility] [id number] OUTPATIENT VISIT DATE PRIMARY CARE PHYSICIAN: Dorene Le [address] [place] [address] HISTORY OF PRESENT ILLNESS: Ms. 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 Lua PACEMAKER 10/2019 PART. HYSTERECTOMY W/WO RMVL OVARIES/TUBES 1973 h/o cervical cancer ovaries remain PAST SURGICAL HISTORY OF 1996 Aortic valve repair, Dr. Apodaca PAST SURGICAL HISTORY OF 2001 [address] Beltrán, [facility] PAST SURGICAL HISTORY OF 2015 clipping [...] palpate. CARDIOVASCULAR MEDICINE TESTING: Right Heart Catheterization [facility] 10/24/2024: Cardiac output (Qs) !4.1L/min ! + [...] !SVR !1650dyn-sec/cm5 ! + +------- + !SVRI !1596rla-tis-t^2/cm5 ! + +------- + !PVR !544dyn-sec/cm5 ! + +------- + !PVRI !264ydq-nsr-y^2/cm5 ! + +------- + !Total systemic resistance!2097dyn-sec/cm5, 7364qud-fcu-i^2/cm5! Echocardiogram [facility] 10/03/2024: 1. Left ventricle: The cavity [...] or suggestive of Atrial Fibrillation * AT/AF [place]: 67.8% * Total number of events: 2774 Tachycardia: AF w/RVR * Stored EGMs listed as NSVT AND SVT are consistent with or suggestive of Atrial Fibrillation with Rapid Ventricular Response * AT/AF [place]: 67.8% * Total episodes: 9 * Longest [...] testing. She underwent SMA stent placement at [facility] September 2024. She has been treated for [...] Carla Burdick MD documented in this encounter [facility] 11-20-2024 Note HNO ID: [id number] Author: CARLA BURDICK MD Service: ? Author Type: Physician Type: Progress Notes Filed: 11/20/2024 08:50 Note Text: [facility]STITUTE SECTION OF REGIONAL CARDIOLOGY Cardiology ([facility]) [address] [facility] [id number] OUTPATIENT VISIT DATE PRIMARY CARE PHYSICIAN: Doreen Le [address] [place] [address] HISTORY OF PRESENT ILLNESS: Ms. 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 Lua PACEMAKER 10/2019 PART. HYSTERECTOMY W/WO RMVL OVARIES/TUBES 1974 h/o cervical cancer ovaries remain PAST SURGICAL HISTORY OF 1996 Aortic valve repair, Dr. Apodaca PAST SURGICAL HISTORY OF 2001 [address] Beltrán, [facility] PAST SURGICAL HISTORY OF 2015 clipping [...] by mouth t (more content not included)... [facility] 11-15-2024 Telephone encounter Note Scheduled. Mckenzie Rodriguez MA [facility] 11-15-2024 Miscellaneous Notes Scheduled. Mckenzie Rodriguez MA [...] panel and BNP. documented in this encounter [facility] 11-15-2024 Telephone encounter Note I spoke to [...] repeat a basic metabolic panel and BNP. [facility] 11-06-2024 Instructions Carla Burdick MD - 11/06/2024 3:33 PM EDT We are changing the Furosemide to Torsemide 20 mg two times per day Stop taking the Losartan documented in this encounter [facility] 11-06-2024 History of Present illness Narrative Images from the original note were not included. [facility] SECTION OF REGIONAL CARDIOLOGY Cardiology ([facility]) [address] [facility] [id number] OUTPATIENT VISIT DATE 11/06/2024 PRIMARY CARE PHYSICIAN: Doreen Le [address] [place] [address] HISTORY OF PRESENT ILLNESS: Ms. Sanches is [...] admitted to the hospital while vacationing in [place]. She underwent SMA stent placement. This was followed by a long admission for decompensated congestive heart failure in the setting of the renal insufficiency. Since returning from [place], she has had difficulties with weight gain [...] 03/26/2014 fatty liver on US. 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 Lua PACEMAKER 10/2019 PART. HYSTERECTOMY W/WO RMVL OVARIES/TUBES 1974 h/o cervical cancer ovaries remain PAST SURGICAL HISTORY OF 1996 Aortic valve repair, Dr. Apodaca PAST SURGICAL HISTORY OF 2001 [address] Beltrán, [facility] PAST SURGICAL HISTORY OF 2016 clipping [...] palpate. CARDIOVASCULAR MEDICINE TESTING: Right Heart Catheterization [facility] 10/24/2024: Cardiac output (Qs) !4.1L/min ! + [...] !SVR !1650dyn-sec/cm5 ! + +------- + !SVRI !9100wir-aje-e^2/cm5 ! + +------- + !PVR !544dyn-sec/cm5 ! + +------- + !PVRI !281bom-vth-p^2/cm5 ! + +------- + !Total systemic resistance!2097dyn-sec/cm5, 9490uns-keo-o^2/cm5! Echocardiogram [facility] 10/03/2024: 1. Left ventricle: The cavity [...] or suggestive of Atrial Fibrillation * AT/AF [place]: 67.8% * Total number of events: 2774 Tachycardia: AF w/RVR * Stored EGMs listed as NSVT AND SVT are consistent with or suggestive of Atrial Fibrillation with Rapid Ventricular Response * AT/AF [place]: 67.8% * Total episodes: 9 * Longest [...] testing. She underwent SMA stent placement at [facility] September 2024. She has been treated for [...] Carla Burdick MD documented in this encounter [facility] 11-06-2024 Note HNO ID: [id number] Author: CARLA BURDICK MD Service: ? Author Type: Physician Type: Progress Notes Filed: 11/06/2024 17:01 Note Text: [facility] SECTION OF REGIONAL CARDIOLOGY Cardiology ([facility]) [address] [facility] [id number] OUTPATIENT VISIT DATE 11/06/2024 PRIMARY CARE PHYSICIAN: Doreen Le [address] [place] [address] HISTORY OF PRESENT ILLNESS: Ms. Sanches is [...] admitted to the hospital while vacationing in [place]. She underwent SMA stent placement. This was followed by a long admission for decompensated congestive heart failure in the setting of the renal insufficiency. 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 Lua PACEMAKER 10/2019 PART. HYSTERECTOMY W/WO RMVL OVARIES/TUBES 1974 h/o cervical cancer ovaries remain PAST SURGICAL HISTORY OF 1996 Aortic valve repair, Dr. Apodaca PAST SURGICAL HISTORY OF 2001 [address] Beltrán, [facility] PAST SURGICAL HISTORY OF 2015 clipping [...] MEDICATIONS: clopidogrel (PLAVIX) (more content not included)... [facility] 11-03-2024 Telephone encounter Note Looks like patient was seen today at heart failure clinic and had repeat labs. From notes, it looks like patient continued to refuse ER. She has an appt w/ cardiology on Wednesday and is to repeat labs at that time. [facility] 11-03-2024 Miscellaneous Notes Looks like patient was [...] the ER. stated the "kidney doctor" at [facility] said her levels are not life [...] patient in to the "heart center" at [facility] today for the IVF. He said [...] Laboratory monitoring. Patient was not d/c'd from [facility], she left AMA. MONIQUE can cause rn long term care damage and if uncorrected patient could end [...] to ER immediately. documented in this encounter [facility] 11-03-2024 Telephone encounter Note Called patient to [...] with plan of care. Albin Gu APRN.CNP [facility] 11-03-2024 Miscellaneous Notes Called patient to review [...] Albin Gu APRN.CNP documented in this encounter [facility] 11-03-2024 History of Present illness Narrative Pt [...] note were not included. Heart [facility] Vascular [place] [facility] Heart Failure Clinic OUTPATIENT VISIT DATE [...] and was worried about traveling home to [place] in a few days. Discussed with her taking lasix as it was prescribed. As her spironolactone was stopped, did advise patient restart this at 25 mg once a day for four days only. She was instructed to call office in a week to review symptoms. On 10/15, patient presented back to [facility] for gastrointestinal bleed. She had a colonoscopy [...] and entresto. The patient wished to leave [place] so she could return to [place]. Cardiology and Pulmonary agreed with discharge. Today, the patient reports feeling okay. Since she was hospitalized in [place], she has not felt that well. Feels very tired. Denies shortness of breath. Was seen by her PCP on Wednesday who suggested patient be admitted due to significant worsening in kidney function however, the patient and declined admission as she just returned home the day before. States she was started on bumex drip and then received oral bumex while in [place] and noted a worsening in kidney function. [...] roasted chicken, asparagus and salad. While in [place], she was very conscious about her diet. She weighed every day. She feels after the first hospitalization, she gained approx 20 lbs which she did call and discuss this with this HF THERAPEUTIC DIETITIAN. Wearing lidocaine patch over site to right side of neck as she mentions having a temporary dialysis port in place during first hospitalization. This area was bothersome to her however, she does mention the discomfort is improving. Does not have a tire setter at this time. 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 Lua PACEMAKER 10/2019 PART. HYSTERECTOMY W/WO RMVL OVARIES/TUBES 1973 h/o cervical cancer ovaries remain PAST SURGICAL HISTORY OF 1996 Aortic valve repair, Dr. Apodaca PAST SURGICAL HISTORY OF 2001 [address] Beltrán, [facility] PAST SURGICAL HISTORY OF 2015 clipping [...] impression and interpretation as noted. Federico Hammonds [id number] I have personally reviewed the Laboratory Testing and Echocardiogram. COUNSELING: We discussed the following non-pharmacological measures during this visit: Smoking and alcohol abstinence/cessation, if applicable Dietary and medication compliance Monitoring daily weights and blood pressures Exercise regimen When to call our office Heart Failure Education Booklet: Previously given. Discussed red flags and when to call MD/MANAGER CONFIGURATION or go to ED. Medications reconciled at end of visit: yes I spent 60 minutes in this visit, with more than 50% of the time devoted to patient counseling. SIGNATURE: Albin Gu APRN.JASPREET PATIENT NAME: Berta Sanches DATE: November 03, 2024 TIME: 0855 documented in this encounter [facility] 11-03-2024 Note HNO ID: [id number] Author: GWEN VALENTINE RN Service: ? Author [...] bleeding, no swelling noted. Pt tolerated well. [facility] 11-03-2024 Note HNO ID: [id number] Author: ALBIN GU APRN.CNP Service: ? Author Type: Nurse Practitioner Type: Progress Notes Filed: 11/03/2024 10:28 Note Text: [facility] [place] [facility] Heart Failure Clinic OUTPATIENT VISIT DATE [...] and was worried about traveling home to [place] in a few days. Discussed with her taking lasix as it was prescribed. As her spironolactone was stopped, did advise patient restart this at 25 mg once a day for four days only. She was instructed to call office in a week to review symptoms. On 10/15, patient presented back to [facility] for gastrointestinal bleed. She had a colonoscopy [...] and entresto. The patient wished to leave [place] so she could return to [place]. Cardiology and Pulmonary agreed with discharge. Today, the patient reports feeling okay. Since she was hospitalized in [place], she has not felt that well. Feels very tired. Denies shortness of breath. Was seen by her PCP on Wednesday who suggested patient be admitted due to significant worsening in kidney function however, the patient and declined admission as she just returned home the day before. States she was started on bumex drip and then received oral bumex while in [place] and noted a worsening in kidney function. [...] roasted chicken, asparagus and salad. While in [place], she was very conscious about her diet. She weighed every day. She feels after the first hospitalization, she gained approx 20 lbs which she did call and discuss this with this HF THERAPEUTIC DIETITIAN. Wearing lidocaine patch over site to right side of neck as she mentions having a temporary dialysis port in place during first hospitalization. This area was bothersome to her however, she does mention the discomfort is improving. Does not have a tire setter at this time. Can lay flat with [...] kidney function sug (more content not included)... [facility] 11-03-2024 Instructions Albin Gu APRN.CNP - [...] or concern, you can call me at [phone]. documented in this encounter [facility] 11-02-2024 Telephone encounter Note Spoke with patient's , Natanael. Patient was in background listening. Relayed message below in detail. Reiterated need for ER for IVF and lab monitoring. Both patient and spouse again declined going to the ER. stated the "kidney doctor" at [facility] said her levels are not life [...] patient in to the "heart center" at [facility] today for the IVF. He said [...] be ordered without appointment. Quin Lama MA [facility] 11-01-2024 Telephone encounter Note Patient scheduled for 11/06/24. Irma Hwang RN [facility] 11-01-2024 Miscellaneous Notes Patient scheduled for 11/06/24. Irma Hwang RN documented in this encounter [facility] 10-31-2024 Telephone encounter Note Creatinine is not improved and likely will not improve at home. Need IVF and Laboratory monitoring. Patient was not d/c'd from [facility], she left AMA. MONIQUE can cause skilled nursing damage and if uncorrected patient could end [...] worse and not better if not corrected. [facility] 10-31-2024 Telephone encounter Note Spouse returns call [...] Please review and advise, Radha Pyle RN [facility] 10-31-2024 Telephone encounter Note Left message for patient to return call. Patient's kidney function has gotten significantly worse and she needs to proceed to ER immediately. [facility] 10-31-2024 Note HNO ID: [id number] Author: SHAYE DOMINGO APRN.JASRPEET Service: ? Author Type: Nurse Practitioner Type: Progress Notes Filed: 10/31/2024 12:52 Note Text: Chief Complaint Patient presents with: Hospital F/U HPI Berta Sanches is a 79 year old female who presents here today for Above Complaints.. Acute Mesenteric Ischemia: - Initially admitted to [facility] on 10/02/2024. - Underwent femoral ultrasound-guided angiogram with angioplasty and stenting of the SMA. - Required CRRT for MONIQUE post-op. - Developed AFib with RVR post-op. - Discharged after 23-day hospitalization. Acute on Chronic Heart Failure: - Given IV Lasix during initial admission. - Readmitted to 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 Lua PACEMAKER 10/2019 PART. HYSTERECTOMY W/WO RMVL OVARIES/TUBES 1973 h/o cervical cancer ovaries remain PAST SURGICAL HISTORY OF 1996 Aortic valve repair, Dr. Apodaca PAST SURGICAL HISTORY OF 2001 [address] Beltrán, [facility] PAST SURGICAL HISTORY OF 2015 clipping [...] hr tablet Take (more content not included)... [facility] 10-31-2024 History of Present illness Narrative Chief Complaint Patient presents with: Hospital F/U HPI Berta Sanches is a 79 year old female who presents here today for Above Complaints.. Acute Mesenteric Ischemia: - Initially admitted to [facility] on 10/02/2024. - Underwent femoral ultrasound-guided angiogram with angioplasty and stenting of the SMA. - Required CRRT for MONIQUE post-op. - Developed AFib with RVR post-op. - Discharged after 23-day hospitalization. Acute on Chronic Heart Failure: - Given IV Lasix during initial admission. - Readmitted to 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 Lua PACEMAKER 10/2019 PART. HYSTERECTOMY W/WO RMVL OVARIES/TUBES 1974 h/o cervical cancer ovaries remain PAST SURGICAL HISTORY OF 1996 Aortic valve repair, Dr. Apodaca PAST SURGICAL HISTORY OF 2001 [address] 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 Acute on chronic diastolic congestive heart failure (HCC) - ICD9: 428.33, 428.0, ICD10: I50.33 - HFpEF 50+ - Compensated - Continue current medications - Encouraged sodium restriction - Encouraged daily weights - Call if 3 lbs gained in 1 days - Will contact Dr. Burdick's office for sooner follow up to discuss recommendations from cardiology/nephrology from [facility]. 7. Hospital discharge follow-up - ICD9: V67.59, ICD10: Z09 -23 days inpatient at [facility]. Shaye Domingo APRN.CNP documented in this encounter [facility] 10-12-2024 Telephone encounter Note Patient called to schedule appt in HF Clinic. Patient also mentions she is currently in [place]. She was admitted to the hospital for [...] answered at this time. Albin Gu APRN.CNP [facility] 10-12-2024 Miscellaneous Notes Patient called to schedule appt in HF Clinic. Patient also mentions she is currently in [place]. She was admitted to the hospital for [...] Albin Gu APRN.JASPREET documented in this encounter [facility] [facility] 07-31[facility]24 Telephone encounter Note Pt called to request refill for KDur as she has run out of prescription. She states that she is currently in [place] and will be in [place] until October. [facility] called in [place], [place]. Spoke with Pharmacist on duty. Rx for KDur 10 meq PO daily given verbally #90 with no refills. Melida Koo APRN.JASPREET [facility] Work Phone: 07-31-2024 Miscellaneous Notes Pt called to request refill for KDur as she has run out of prescription. She states that she is currently in [place] and will be in [place] until October. [facility] called in [place], [place]. Spoke with Pharmacist on duty. Rx for KDur 10 meq PO daily given verbally #90 with no refills. Melida Koo APRN.CNP documented in this encounter [facility] 07-07-2024 Note HNO ID: [id number] Author: SIGIFREDO RIVERA LPN Service: ? Author [...] assessed by LIP pre and post procedure [facility] 07-07-2024 Note HNO ID: [id number] Author: DEYSI NICHOLSON APRN.JASPREET Service: ? Author Type: Nurse Practitioner Type: Progress Notes Filed: 07/07/2024 12:41 Note Text: This is a 78 year old female who presents today with: Patient presents with: Establish Care HISTORY OF PRESENT ILLNESS: Berta Sanches is a 78 year old female. Patient presents with: Establish Care [facility] HTN: Patient is compliant with meds Yes. 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 Lua PACEMAKER 10/2019 PART. HYSTERECTOMY W/WO RMVL OVARIES/TUBES 1974 h/o cervical cancer ovaries remain PAST SURGICAL HISTORY OF 1996 Aortic valve repair, Dr. Apodaca PAST SURGICAL HISTORY OF 2001 [address] Beltrán, [facility] PAST SURGICAL HISTORY OF 2015 clipping [...] 2 DM - (more content not included)... [facility] 04-07-2024 Instructions Albin Gu APRN.JASPREET - 04/07/2024 [...] or concern, you can call me at [phone]. documented in this encounter [facility] 04-07-2024 History of Present illness Narrative Images from the original note were not included. [facility] [place] Heart Failure Clinic OUTPATIENT VISIT DATE [...] a boat and take it out on [place] to fish. 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 Lua PACEMAKER 10/2019 PART. HYSTERECTOMY W/WO RMVL OVARIES/TUBES 1973 h/o cervical cancer ovaries remain PAST SURGICAL HISTORY OF 1996 Aortic valve repair, Dr. Apodaca PAST SURGICAL HISTORY OF 2001 [address] Beltrán, [facility] PAST SURGICAL HISTORY OF 2015 clipping [...] * Heart Rate Histograms reviewed AP 45%, ADJUNCT FACULTY FOR MEDICAL TERMINOLOGY 10.4% Title: Tachycardia: AF * Stored EGMs are consistent with or suggestive of Atrial Fibrillation * AT/AF [place]: 38.7% * Total number of events: 4,598 [...] Discussed red flags and when to call MD/MANAGER CONFIGURATION or go to ED. Medications reconciled at end of visit: yes I spent 30 minutes in this visit, with more than 50% of the time devoted to patient counseling. SIGNATURE: Albin Gu APRN.CNP PATIENT NAME: Berta Sanches DATE: April 07, 2024 TIME: 904 documented in this encounter [facility] 04-07-2024 Note HNO ID: [id number] Author: ALBIN GU APRN.CNP Service: ? Author Type: Nurse Practitioner Type: Progress Notes Filed: 04/07/2024 09:57 Note Text: [facility] Heart Failure Clinic OUTPATIENT VISIT DATE [...] a boat and take it out on [place] to fish. IMPRESSION: NYHA Functional Class: II [...] Bilateral pneumonia 07/20/ (more content not included)... [facility] 02-21-2024 Telephone encounter Note Called and [...] of plan of care. Melida Koo APRN.CNP [facility] Work Phone: 02-21-2024 Miscellaneous Notes Called and [...] Melida Koo APRN.JASPREET documented in this encounter [facility] 02-07-2024 Telephone encounter Note Spoke to and [...] to Maribell as well. Ying Fuentes LPN [facility] 02-07-2024 Miscellaneous Notes Spoke to and informed [...] Maribell King APRN.CNP documented in this encounter [facility] 02-07-2024 Telephone encounter Note Patient should double Lasix to 40 mg BID for 3 days, then recheck BMP that has been ordered per PCP. Please ask patient to monitor daily weights. Maribell King APRN.CNP [facility] 02-07-2024 Telephone encounter Note Pt called and left message on voicemail stating that she was feeling much better since following instructions that Albin Aurin had given her. She reported that SOB and edema was improved. She has concerns about NTpBNP and when she should have that rechecked. Called patient and she did not answer. Message left for call back. Melida Koo APRN.JASPREET [facility] Work Phone: 02-07-2024 Miscellaneous Notes Pt called [...] Melida Koo APRN.JASPREET documented in this encounter [facility] 02-04-2024 Telephone encounter Note I spoke to and informed them of Maribell's response to lab results and recommendations. Patient voiced understanding. Patient states BNP is elevated from 2 months ago. Patient asking if she should make any changes. Patient c/o weight gain and SOB with activity. Ying Fuentes LPN [facility] 02-04-2024 Telephone encounter Note ----- Message from Maribell King APRN.CNP sent at 02/04/2024 2:02 PM EDT ----- Please call the patient and report lab results revealed stable kidney function, normal potassium level, normal liver function, cholesterol is under good control, and elevated BNP. Maribell King APRN.CNP [facility] 02-04-2024 Telephone encounter Note Returned patient phone [...] answered at this time. Albin Gu APRN.CNP [facility] 02-04-2024 Miscellaneous Notes Returned patient phone call [...] Albin Gu APRN.CNP documented in this encounter [facility] 01-17-2024 Instructions Carla Burdick MD - 01/17/2024 10:08 AM EDT We will repeat fasting blood work documented in this encounter [facility] 01-17-2024 History of Present illness Narrative Images from the original note were not included. [facility] SECTION OF REGIONAL CARDIOLOGY Cardiology ([facility]) [address] [facility] [id number] OUTPATIENT VISIT DATE 01/17/2024 PRIMARY CARE PHYSICIAN: Doreen Le [address] [place] [address] HISTORY OF PRESENT ILLNESS: Ms. 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 Lua PACEMAKER 10/2019 PART. HYSTERECTOMY W/WO RMVL OVARIES/TUBES 1974 h/o cervical cancer ovaries remain PAST SURGICAL HISTORY OF 1996 Aortic valve repair, Dr. Apodaca PAST SURGICAL HISTORY OF 2001 [address] Beltrán, [facility] PAST SURGICAL HISTORY OF 2016 clipping [...] area (PISA) is 0.15 cm . - [employer] prosthetic aortic valve (size #28). There is [...] Carla Burdick MD documented in this encounter [facility] 01-17-2024 Note HNO ID: [id number] Author: CARLA BURDICK MD Service: ? Author Type: Physician Type: Progress Notes Filed: 01/17/2024 10:36 Note Text: [facility] SECTION OF REGIONAL CARDIOLOGY Cardiology ([facility]) [address] [facility] [id number] OUTPATIENT VISIT DATE 01/17/2024 PRIMARY CARE PHYSICIAN: Doreen Le [address] [place] [address] HISTORY OF PRESENT ILLNESS: Ms. 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 Lua PACEMAKER 10/2019 PART. HYSTERECTOMY W/WO RMVL OVARIES/TUBES 1973 h/o cervical cancer ovaries remain PAST SURGICAL HISTORY OF 1996 Aortic valve repair, Dr. Apodaca PAST SURGICAL HISTORY OF 2001 [address] Beltrán, [facility] PAST SURGICAL HISTORY OF 2015 clipping [...] once daily. pota (more content not included)... [facility] 12-07-2023 Instructions Deysi Nicholson APRN.JASPREET - 12/07/2023 12:13 PM EDT Continue the same medications. If no better or worsening, start the antibiotic. Start mucinex or coricidin. Let us know if no improvement/worsening. 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 Lua PACEMAKER 10/2019 PART. HYSTERECTOMY W/WO RMVL OVARIES/TUBES 1974 h/o cervical cancer ovaries remain PAST SURGICAL HISTORY OF 1996 Aortic valve repair, Dr. Apodaca PAST SURGICAL HISTORY OF 2001 [address] Beltrán, [facility] PAST SURGICAL HISTORY OF 2015 clipping [...] as needed for worsening/no improvement. Deysi Nicholson APRN.MANPOWER DEVELOPMENT SPECIALIST MANAGER documented in this encounter [facility] 11-26-2023 History of Present illness Narrative ACM [...] Valentine Meneses RN documented in this encounter [facility] 11-25-2023 Instructions Albin Gu APRN.MANPOWER DEVELOPMENT SPECIALIST MANAGER - 11/25/2023 10:56 AM EDT Continue current [...] or concern, you can call me at [phone]. documented in this encounter [facility] 11-25-2023 History of Present illness Narrative Images from the original note were not included. [facility] Heart Failure Clinic OUTPATIENT VISIT DATE [...] of over 5 years ago. Was in [place] over the winter for 3 months. Noticed leg swelling while down in [place]. 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 Lua PACEMAKER 10/2019 PART. HYSTERECTOMY W/WO RMVL OVARIES/TUBES 1974 h/o cervical cancer ovaries remain PAST SURGICAL HISTORY OF 1996 Aortic valve repair, Dr. Apodaca PAST SURGICAL HISTORY OF 2001 [address] Beltrán, [facility] PAST SURGICAL HISTORY OF 2015 clipping [...] 2023 TIME: 999 documented in this encounter [facility] 11-23-2023 History of Present illness Narrative Lab from 11/19/[address] Mujica. Greatly improved with oral iron. Pt notified. No need for OV in Hem/Onc and to follow up with PCP. Pt verbalized understanding. Chula Morales RN documented in this encounter [facility] 11-22-2023 Instructions Deysi Nicholson APRN.JASPREET - 11/22/2023 9:53 AM EDT Continue the same medication. Repeat lab on Wednesday after you see Dr. Rodriguez. Moist heat/ice to the back. Massage to the area. Let us know if any problems/concerns. documented in this encounter [facility] 11-22-2023 History of Present illness Narrative This is a 78 year old female who presents today with: Patient presents with: Hospital Follow Up: [facility] follow up dc'd 11/12/23 dx: CHF HISTORY OF PRESENT ILLNESS: Berta Sanches is a 78 year old female. Patient presents with: Hospital Follow Up: [facility] follow up dc'd 11/12/23 dx: CHF Pt presents today for hospital follow-up. Discharged on 11/11 from [place] w/ dx of CHF. 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 Lua PACEMAKER 10/2019 PART. HYSTERECTOMY W/WO RMVL OVARIES/TUBES 1974 h/o cervical cancer ovaries remain PAST SURGICAL HISTORY OF 1996 Aortic valve repair, Dr. Apodaca PAST SURGICAL HISTORY OF 2001 [address] Beltrán, [facility] PAST SURGICAL HISTORY OF 2016 clipping [...] Deysi Nicholson APRN.JASPREET documented in this encounter [facility] 11-19-2023 Telephone encounter Note Patient called office for instructions on diuretics as her weight is up 5 lbs. She states she was instructed to call the office with questions. This THERAPEUTIC DIETITIAN has not seen this patient in clinic but is scheduled to see her in the following week. 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 She has been taking additional 20 mg [...] Patient agrees and understands. Albin Gu APRN.JASPREET [facility] Work Phone: 11-19-2023 Miscellaneous Notes Patient called office for instructions on diuretics as her weight is up 5 lbs. She states she was instructed to call the office with questions. This THERAPEUTIC DIETITIAN has not seen this patient in clinic but is scheduled to see her in the following week. 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 She has been taking additional 20 mg [...] Albin Gu APRN.JASPREET documented in this encounter [facility] 11-17-2023 Telephone encounter Note HF Follow-up Phone [...] No results found for this basename: BNP [facility] 11-17-2023 Miscellaneous Notes HF Follow-up Phone Call: [...] this basename: BNP documented in this encounter [facility] 11-16-2023 Telephone encounter Note Called patient and scheduled as Directed Mona Noonan [facility] 11-16-2023 Miscellaneous Notes Called patient and scheduled as Directed Mona Noonan Hemoglobin okay. Not urgent. Next new appointment time with either me or Dr. Rodriguez. Dx: 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 (ICD-10-CM)]; Iron malabsorption [K90.9 (ICD-10-CM)] Hospitalist is recommending outpatient iron transfusion. Please schedule. Telephone on 10/31/23 CONSULT TO HEMATOLOGY Edmund Alex PA-C documented in this encounter [facility] 11-16-2023 History of Present illness Narrative ACM CECY RN Patient identified by name and date of . Reason for review or outreach: Chart Review Cecy Priority Emergency Department Utilization ED DIAGNOSES/REASON(S) FOR ED USE: OTHER FINDINGS/SUMMARY:E.D. visit on 11-09-23 transitioned to [facility] Admit Patient Attributed To: QAE Payer: [employer] [place] Action Taken: No action needed Contact made with patient: No, Chart review only. Signature: Geri Santoyo RN documented in this encounter [facility] 11-15-2023 Telephone encounter Note Transitional Care Management (TCM) [facility] Monitoring Program Provider Action / FYI: na SUMMARY: Outreach type: INITIAL OUTREACH Discharge Network Status: In-Network Discharge Source of Patient: [facility] TCM Discharge Report Patient discharged from [place] on 11.09.23. Admitted for Acute on chronic left systolic heart failure . Contact made with patient: Yes, for Initial Outreach Hi my name is Nara Malone RN and I am calling from the [facility] on behalf of your Primary Care Provider, [...] Center phone number to speak with a ela teacher who can assist you with that appointment. [...] Malone RN November 15, 2023 10:35 AM [facility] 11-15-2023 Miscellaneous Notes Transitional Care Management (TCM) [facility] Monitoring Program Provider Action / FYI: na SUMMARY: Outreach type: INITIAL OUTREACH Discharge Network Status: In-Network Discharge Source of Patient: [facility] TCM Discharge Report Patient discharged from [place] on 11.09.23. Admitted for Acute on chronic left systolic heart failure . Contact made with patient: Yes, for Initial Outreach Hi my name is Nara Malone RN and I am calling from the [facility] on behalf of your Primary Care Provider, [...] Center phone number to speak with a ela teacher who can assist you with that appointment. [...] 2023 10:35 AM documented in this encounter [facility] 11-15-2023 Telephone encounter Note Hemoglobin okay. Not urgent. Next new appointment time with either me or Dr. Rodriguez. [facility] 11-15-2023 Telephone encounter Note Dx: 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 (ICD-10-CM)]; Iron malabsorption [K90.9 (ICD-10-CM)] [facility] 11-15-2023 Telephone encounter Note Hospitalist is recommending outpatient iron transfusion. Please schedule. Telephone on 10/31/23 CONSULT TO HEMATOLOGY ThanksEdmund PA-C [facility] 11-12-2023 Telephone encounter Note [facility] referral was received for Heart Failure services. Unfortunately the referral is declined at this time due to geographic location. Thank you for the referral. KAITLYNN Tuttle [facility] 11-12-2023 Miscellaneous Notes [facility] referral was received for Heart Failure services. Unfortunately the referral is declined at this time due to geographic location. Thank you for the referral. KAITLYNN Tuttle Transitional Care Program - Intake Template - for interface Date Referral Received: 11/12/2023 Referral Source: [facility] Program: HF Consult UD Consult scheduled with: NA Date of : 1945 Age: [age] year old PCP: Doreen Le PA-C Visit address from [facility]: [address] [place] [address] Name of Physician who gave the order: Dr. Rita Rey Other services ordered: None Primary Insurance Company: Payor: [employer] MEDICARE / Plan: [employer] MEDICARE PPO / Product Type: PPO / Primary Insurance ID Number: [id number] documented in this encounter [facility] 11-12-2023 Telephone encounter Note Transitional Care Program - Intake Template - for interface Date Referral Received: 11/12/2023 Referral Source: [facility] Program: HF Consult UD Consult scheduled with: NA Date of : 1945 Age: [age] year old PCP: Doreen Le PA-C Visit address from [facility]: [address] [place] [address] Name of Physician who gave the order: Dr. Rita Rey Other services ordered: None Primary Insurance Company: Payor: AETNA MEDICARE / Plan: AETNA MEDICARE PPO / Product Type: PPO / Primary Insurance ID Number: [id number] [facility] 11-12-2023 Evaluation note Diagnosis Stage 3 chronic kidney disease, unspecified whether stage 3a or 3b CKD (HCC)- Primary documented in this encounter [facility]05-06-2024 History of Present illness Narrative* BoykinBere narvaezTERI.MANPOWER DEVELOPMENT SPECIALIST MANAGER - 11/08/2023 4:30 PM EDT Images from the original note were not included. 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 Lua PACEMAKER 10/2019 PART. HYSTERECTOMY W/WO RMVL OVARIES/TUBES 1973 h/o cervical cancer ovaries remain PAST SURGICAL HISTORY OF 1996 Aortic valve repair, Dr. Apodaca PAST SURGICAL HISTORY OF 2001 2001 and [address] Beltrán, [facility] PAST SURGICAL HISTORY OF 2015 clipping [...] - May be candidate for DCCV at [facility] once euvolemic 3. Acute on chronic HFmrEF [...] hemodynamic stability, he spouse drove her to [facility] ER. I called report to Dr. Tuttle in theER. CONTACT INFORMATION: Bere Boykin APRN.[facility] Cardiology [id number] [facility] [id number] Dept: [phone] I have reviewed the patient's medications and allergies, past medical, surgical, social and family history, updating these as appropriate. See Histories section of the [facility] for a display of this information. 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 Lua PACEMAKER 10/2019 PART. HYSTERECTOMY W/WO RMVL OVARIES/TUBES 1974 h/o cervical cancer ovaries remain PAST SURGICAL HISTORY OF 1996 Aortic valve repair, Dr. Apodaca PAST SURGICAL HISTORY OF 2001 [address] Beltrán, [facility] PAST SURGICAL HISTORY OF 2016 clipping [...] Colon Skin Cancer Pad (Peripheral Artery Disease) ([facility]) Pedro Aneurysm of Anterior Communicating Artery Stage [...] Heart Failure) (Hcc) Sss (Sick Sinus Syndrome) ([facility]) Duodenal Ulcer Type 2 Diabetes Mellitus With [...] answered. Doreen Le PA-C [facility] Telephone encounter Note * Telephone Encounter - Doreen Le PA-C - 11/03/2023 10:36 AM EDT She needs to see person scheduled next week. She may need additional appointment with the pulmonology specialist in addition but haven't heard from Dr. Burdick yet. Edmund Alex PA-C [facility]05-01-2024 Miscellaneous Notes* Telephone Encounter - Doreen Le PA-C - 11/03/2023 10:36 AM EDT She needs to see person scheduled next week. She may need additional appointment with the pulmonology specialist in addition but haven't heard from Dr. Burdick yet. Edmund Alex PA-C * Telephone Encounter - Uma Parson MA - 11/02/2023 10:59 AM EDT After review pt is currently scheduled with a [facility] in [place] on 11/08/23. This was setup on10/25/23. Her [...] Thanks, Edmund Le PA-C [facility] Telephone encounter Note * Telephone Encounter - Sandra Thacker LPN - 11/02/2023 5:13 PM EDT Patient notified. Verbalized understanding. Is scheduled for for follow up. [facility]04-30-2024 Miscellaneous Notes* Telephone Encounter - Sandra Thacker LPN - 11/02/2023 5:13 PM EDT Patient notified. Verbalized understanding. Is scheduled for for follow up. * Telephone Encounter - Doreen Le PA-C - 11/02/2023 5:04 PM EDT Please advise from [employer] message: Hi Cassidy You labs show you [...] PANEL Edmund Alex PA-C documented in [facility] Telephone encounter Note * Telephone Encounter - Doreen Le PA-C - 11/02/2023 5:04 PM EDT Please advise from [employer] message: Hi Cassidy You labs show you [...] BASIC METABOLIC PANEL Thanks, Edmund Le PA-C [facility]04-30-[facility]24 Telephone encounter Note* Telephone Encounter - Uma Parsno MA - 11/02/2023 10:59 AM EDT After review pt is currently scheduled with a [facility] in [place] on 11/08/23. This was setup on10/25/23. Her Cardiology appt with Clara is in January. Is she still following with him or seeing someone new? Uma Parson MA [facility]04-30-2024 Telephone encounter Note* Telephone Encounter - Doreen Le PA-C - 11/02/2023 10:54 AM EDT Please see if we can expedite cardiology visit to LIA r/t SOB, weight gain, lower extremity swelling and recent abnormal echo finding. Patient is willing for invasive procedures if necessary. Edmund Alex PA-C [facility]04-16-2024 History of Present illness Narrative* Lars Silva DO - 10/19/2023 4:00 PM EDT Reviewed DVT study with Cassidy. No evidence of DVT. Recommend follow up as scheduled with PCP and cardiology. documented in this encounterCleveland Clinic Eucl[facility]04-15-2024 History of Present illness Narrative* Marisol Cook, [...] PATIENT PRESENTS WITH AN IMPLANTABLE OR ATTACHED GUEST SERVICE AGENT: No RADIOLOGY DEPARTMENT: General X-ray: Exam(s) Completed: Chest X-Ray PERIPHERAL IV DATA: Not applicable SIGNED BY: RT Mario(Annalisa) October 18, 2023 2:28 PM documented in this encounterCleveland Clinic Eucl[facility]04-15-2024 Instructions* Patient Instructions* Doreen Le PA-C - [...] lab in 2 weeks. documented in this encounterCleveland Clinic Eucl[facility]04-15-2024 History of Present illness Narrative* Doreen Le PA-C - 10/18/2023 1:00 PM EDT 78 year old female with c/o here for Pedro Aneurysm Neurosurgeon Dr. Dianne Rogers, Susan Mtz MANPOWER DEVELOPMENT SPECIALIST MANAGER 12/10/2022 MRA brain W/WO: Satisfactory appearance of [...] aneurysm (Ranjan 0) Sss (sick sinus syndrome) ([facility]) Paroxysmal atrial fibrillation ([facility]) S/p placement of cardiac pacemaker (primary encounter diagnosis) Chronic combined systolic and diastolic chf (congestive heart failure) ([facility]) Dilated cardiomyopathy ([facility]) Ascending aorta dilatation [facility] H/o rheumatic heart disease History of [...] Lymph 1.00 - 4.00 k/uL 2.82 2.73 Menard% % 13.0 10.2 Abs Menard <0.87 k/uL 1.10 (H) 0.79 Eosin% % [...] recent CT scans which were done in [facility]. 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 Lua PACEMAKER 10/2019 PART. HYSTERECTOMY W/WO RMVL OVARIES/TUBES 1974 h/o cervical cancer ovaries remain PAST SURGICAL HISTORY OF 1996 Aortic valve repair, Dr. Apodaca PAST SURGICAL HISTORY OF 2001 [address] Beltárn, [facility] PAST SURGICAL HISTORY OF 2016 clipping [...] Colon Skin Cancer Pad (Peripheral Artery Disease) (Formerly [facility]) Pedro Aneurysm of Anterior Communicating Artery Stage 3 Chronic Renal Impairment Associated With Type 2 Diabetes Mellitus ([facility]) History of Pulmonary Embolism Ascending Aorta Dilatation (Hcc) Chronic Bilateral Pleural Effusions Colovesical Fistula Right Renal Mass Diverticulitis Large Intestine W/O Perforation Or Abscess W/O Bleeding Renal Cell Carcinoma, Right (Hcc) Iron Deficiency Anemia Hypomagnesemia Gastrointestinal Hemorrhage Associated With Acute Gastritis Esophageal Stenosis Dilated Cardiomyopathy (Hcc) Chronic Combined Systolic and Diastolic Chf (Congestive Heart Failure) (Hcc) Sss (Sick Sinus Syndrome) ([facility]) Duodenal Ulcer Type 2 Diabetes Mellitus With [...] (primary diagnosis) 2. SSS (sick sinus syndrome) ([facility]) - ICD9: 427.81, ICD10: I49.5 3. Paroxysmal atrial fibrillation ([facility]) - ICD9: 427.31, ICD10: I48.0 4. S/P placement of cardiac pacemaker - ICD9: V45.01, ICD10: Z95.0 5. Chronic combined systolic and diastolic CHF (congestive heart failure) ([facility]) - ICD9: 428.42, 428.0, ICD10: I50.426. Dilated cardiomyopathy ([facility]) - ICD9: 425.4, ICD10: I42.0 7. Ascending aorta dilatation ([facility]) - ICD9: 447.71, ICD10: I77.810 8. History [...] % (FLUSH) INJECTION SYRINGE - INSERT IV (NV,NC) - IV DISCONTINUE 10. Platelet inhibition due [...] medication Doreen Le PA-C documented in this encounterCleveland Clinic [facility]04-12-2024 Miscellaneous Notes* Telephone Encounter - Mckayla Albert [...] appointment in January 2024. Patient has called [facility] [place] they told her they are scheduling into April but if seen there she cannot be seen back in [place] location which is her preference. Patient is willing to travel to [facility] if she needs to. Please review and advise. Mckayla Albert LPN documented in this encounterCleveland Clinic [facility]04-11-2024 History of Present illness Narrative* Lars Silva, DO - 10/14/2023 2:57 PM EDT Images from the original note were not included. Heart , Vascular and Thoracic [place] DEPARTMENT OF VASCULAR SURGERY OUTPATIENT VISIT DATE October 14, 2023 OUTPATIENT VISIT TYPE ESTABLISHED SERVICE DATE: 10/14/2023 SERVICE TIME: 2:58 PM PRIMARY CARE PHYSICIAN: Doreen Le PA-C HISTORY OF PRESENT ILLNESS: Ms. Sanches is a 78 year old female who presents today for a vascular surgery follow-up visit has noticed increased bilateral lower extremity edema especially in thighs. She recently returned home from [place]. She had duplex in [place] which was negative for DVT. 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 Lua PACEMAKER 10/2019 PART. HYSTERECTOMY W/WO RMVL OVARIES/TUBES 1973 h/o cervical cancer ovaries remain PAST SURGICAL HISTORY OF 1996 Aortic valve repair, Dr. Apodaca PAST SURGICAL HISTORY OF 2001 [address] Beltrán, [facility] PAST SURGICAL HISTORY OF 2015 clipping [...] 2023 TIME: 2:58 PM documented in this encounterCleveland Clinic [facility]01-01-2024 History of Present illness Narrative* Bijan Cole [...] interactions). Bijan Cole MD documented in this encounterCleveland Clinic Eucl[facility]12-04-2023 Miscellaneous Notes* Telephone Encounter - Sheree Savage Ma - 06/07/2023 4:55 PM EST Patient stopped by office and picked up shoe. Small Squared toe post op shoe Sheree Savage Ma * Telephone Encounter - Sheree Savage Ma - 06/07/2023 1:49 PM EST Called pt and she will stop in office this afternoon to grain and yeast plants supervisor post op shoe. Sheree Savage Ma * Telephone Encounter - Uma Parson Ma - 06/07/2023 9:43 AM EST See response from ptCoty Parson Ma documented in this encounterCleveland Clinic [facility]ucl[facility]11-28-2023 History of Present illness Narrative* Marisol Cook RT(R) - 06/01/2023 2:20 PM EST Radiology Service Progress Note PATIENT NAME: Berta Sanches DATE OF SERVICE: June 01, 2023 TIME: [...] 01, 2023 2:31 PM documented in this encounterCleveland Clinic [facility]10-27-2023 History of Present illness Narrative* Mckayla Reed [...] 30, 2023 1:48 PM documented in this encounterCleveland Clinic [facility]10-09-2023 History of Present illness Narrative* Marisol Cook [...] 12, 2023 10:32 AM documented in this encounterCleveland Clinic [facility]09-11-2023 Miscellaneous Notes* Telephone Encounter - Margoth Bolaños [...] and advise. Agueda Schulte documented in this encounterCleveland Clinic Eucl[facility] Hospital07-27-2023 Miscellaneous Notes* Telephone Encounter - Bushra Strauss - 01/28/2023 10:43 AM EDT Patient has been contacted and scheduled with Dr. Silva * Telephone Encounter - Sheree Savage Ma - 01/28/2023 9:55 AM EDT Pt viewed [employer] message. Please help pt set up consult. * Telephone Encounter - Doreen Le PA-C - 01/28/2023 6:33 AM EDT Please schedule: Telephone on 01/28/23 CONSULT TO VASCULAR SURGERY Pvd (peripheral vascular disease) with claudication (hcc) (primary encounter diagnosis) See [employer] regarding PVR resuts Thanks, Edmund Le PA-C documented in this encounterCleveland Clinic [facility]ucl[facility] Hospital07-07-2023 Miscellaneous Notes* Telephone Encounter - Berta Keith - 01/08/2023 1:51 PM EDT Patient stated she will talk to Edmund at her appoitment.Berta Rahman * Telephone Encounter - Sheree Savage Ma - 01/08/2023 9:34 AM EDT Images from the original note were not included. Doreen Le PA-C P tr David Aldana Please assist patient to schedule outstanding CT chest WO to follow lung nodules if she is amenable Abi, Edmund Le PA-C documented in this encounterCleveland Clinic [facility]ucl[facility]07-06-2023 Instructions* Patient Instructions* Doreen Claudia Le PA-C [...] due to heart conditions documented in this encounterCleveland Clinic [facility]07-06-2023 History of Present illness Narrative* Doreen Le PA-C - 01/07/2023 8:40 AM EDT 77 year old female with c/o here for routine follow up. Worst problem currently are legs. Has to get up and walk around. Drinks tonic water with quinine. Pain is excruciating. Severe pain. Not every night. Pedro Aneurysm Neurosurgeon Dr. Dianne Rogers, Susan Mtz MANPOWER DEVELOPMENT SPECIALIST MANAGER 12/10/2022 MRA brain W/WO: Satisfactory appearance of [...] stent-assisted coil embolization of unruptured Acomm aneurysm (Rnajan 0) S/p placement of cardiac pacemaker (primary [...] - 4.00 k/uL 2.05 2.22 1.81 2.82 Menard% % 12.7 12.3 12.6 13.0 Abs Menard <0.87 k/uL 0.93 (H) 1.06 (H) 0.74 [...] recent CT scans which were done in [facility]. 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 Lua PACEMAKER 10/2019 PART. HYSTERECTOMY W/WO RMVL OVARIES/TUBES 1974 h/o cervical cancer ovaries remain PAST SURGICAL HISTORY OF 1996 Aortic valve repair, Dr. Apodaca PAST SURGICAL HISTORY OF 2001 [address] Beltrán, [facility] PAST SURGICAL HISTORY OF 2015 clipping [...] Heart Failure) (Hcc) Sss (Sick Sinus Syndrome) (Former[facility]) Duodenal Ulcer Type 2 Diabetes Mellitus With [...] TABLET BY MOUTH TWICE A DAY 60 [id number] clopidogrel (PLAVIX) 75 mg tablet Take 1 [...] ARTERIES [facility] 2. Atherosclerosis of [place] artery of both lower extremities with intermittent [...] UR - HGB A1C documented in this encounterCleveland Clinic [facility] Hospital06-08-2023 NoteHNO ID: [id number] Author: RT Pranav(R) Service: Radiology Author Type: [...] BY: RT Pranav(R) December 10, 2022 1:06 [facility]04-04-2023 History of Present illness Narrative* Doreen Le PA-C - 10/06/2022 9:00 AM EDT 77 year old female with c/o here for follow up Pedro Aneurysm Neurosurgeon Dr. Dianne Rogers, Susan Mtz MANPOWER DEVELOPMENT SPECIALIST MANAGER 12/07/2017 note: f/u MRA recommended 202012/02/2017 MRA [...] (primary encounter diagnosis) Sss (sick sinus syndrome) ([facility]) Chronic combined systolic and diastolic chf [...] - 4.00 k/uL 2.05 2.22 1.81 2.82 Menard% % 12.7 12.3 12.6 13.0 Abs Menard <0.87 k/uL 0.93 (H) 1.06 (H) 0.74 [...] recent CT scans which were done in [facility]. 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 Lua PACEMAKER 10/2019 PART. HYSTERECTOMY W/WO RMVL OVARIES/TUBES 1974 h/o cervical cancer ovaries remain PAST SURGICAL HISTORY OF 1996 Aortic valve repair, Dr. Apodaca PAST SURGICAL HISTORY OF 2001 [address] Beltrán, [facility] PAST SURGICAL HISTORY OF 2016 clipping [...] Colon Skin Cancer Pad (Peripheral Artery Disease) (Formerly [facility]) Pedro Aneurysm of Anterior Communicating Artery Stage 3 Chronic Renal Impairment Associated With Type 2 Diabetes Mellitus ([facility]) History of Pulmonary Embolism Ascending Aorta Dilatation ([facility]) Chronic Bilateral Pleural Effusions Colovesical Fistula Right Renal Mass Diverticulitis Large Intestine W/O Perforation Or Abscess W/O Bleeding Renal Cell Carcinoma, Right ([facility]) Iron Deficiency Anemia Hypomagnesemia Gastrointestinal Hemorrhage Associated With Acute Gastritis Esophageal Stenosis Dilated Cardiomyopathy ([facility]) Chronic Combined Systolic and Diastolic Chf (Congestive Heart Failure) ([facility]) Sss (Sick Sinus Syndrome) ([facility]) Duodenal Ulcer 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 SSS (sick sinus syndrome) ([facility]) - ICD9: 427.81, ICD10: I49.5 3. Chronic combined systolic and diastolic CHF (congestive heart failure) ([facility]) - ICD9: 428.42, 428.0, ICD10: I50.42 4. Dilated cardiomyopathy ([facility]) - ICD9: 425.4, ICD10: I42.0 5. Ascending aorta dilatation ([facility]) - ICD9: 447.71, ICD10: I77.810 6. H/O rheumatic heart disease - ICD9: V12.59, ICD10: Z86.79 7. History of prosthetic aortic valve replacement - ICD9: V43.3, ICD10: Z95.2 8. Paroxysmal atrial fibrillation ([facility]) - ICD9: 427.31, ICD10: I48.0 9. Presence [...] PANEL Doreen Le PA-C documented in this encounterCleveland [facility]04-03-2023 History of Present illness Narrative* Erin Lauren [...] 05, 2022 9:36 AM documented in this encounterCleveland Clinic [facility]04-03-2023 Miscellaneous Notes* Result Encounter Note - Brayan Chicas MD - 10/05/2022 8:30 AM EDT Here are the test results.Keep follow up appointment to discuss the results. documented in this [facility]03-28-2023 Miscellaneous Notes* Telephone Encounter - Rachele Bee LPN - 09/29/2022 12:06 PM EDT Patient no longer followed by Dr. Lund. Rachele Bee LPN documented in this encounterCleveland Clinic [facility]03-27-2023 Instructions* Patient Instructions* Carla Burdick MD - 09/28/2022 9:30 AM EDT We will repeat an echocardiogram in March Repeat fasting blood work documented in this [facility]03-27-2023 History of Present illness Narrative* Carla Burdick MD - 09/28/2022 9:00 AM EDT Images from the original note were not included. [facility] SECTION OF REGIONAL CARDIOLOGY Cardiology ([facility]) [address] [facility] [id number] OUTPATIENT VISIT DATE 09/28/2022 PRIMARY CARE PHYSICIAN: Doreen Le [address] [place] [address] HISTORY OF PRESENT ILLNESS: Ms. 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 Lua PACEMAKER 10/2019 PART. HYSTERECTOMY W/WO RMVL OVARIES/TUBES 1974 h/o cervical cancer ovaries remain PAST SURGICAL HISTORY OF 1996 Aortic valve repair, Dr. Apodaca PAST SURGICAL HISTORY OF 2001 [address] Beltrán, [facility] PAST SURGICAL HISTORY OF 2015 clipping [...] systolic and diastolic CHF (congestive heart failure) ([facility]) - ICD9: 428.42, 428.0, ICD10: I50.42 Patient doing well on current diuretic therapy low-sodium diet 7. SSS (sick sinus syndrome) ([facility]) - ICD9: 427.81, ICD10: I49.5 8. S/P placement of cardiac pacemaker - ICD9: V45.01, ICD10: Z95.0 9. PAD (peripheral artery disease) ([facility]) - ICD9: 443.9, ICD10: I73.9 History of mild bilateral carotid artery disease. No symptoms for TIA or CVA. 10. Hyperlipidemia with target LDL less than 70 - ICD9: 272.4, ICD10: E78.5 Maintained on simvastatin 20 mg daily. Repeat fasting lipid panel - LIPID PANEL BASIC Carla Burdick MD documented in this encounterCleveland Clinic [facility]02-27-2023 Miscellaneous Notes* Telephone Encounter - Margoth Bolaños [...] 10/06/22 Margoth Bolaños MA documented in this encounterCleveland Clinic [facility]01-18-2023 Miscellaneous Notes* Telephone Encounter - Mars Xiao - 07/22/2022 12:54 PM EST Study explained/reviewed with patient. Study related follow-up requirements were discussed. Risks, benefits, alternatives, personnel, and costs of the study explained/reviewed. Patient provided informed consent for review by email. Study related questions were addressed. Provided patient with contact information to call. Mars Xiao documented in this encounterCleveland Clinic [facility]01-16-2023 Miscellaneous Notes* Telephone Encounter - Sheree Savage Ma - 07/20/2022 12:11 PM EST Faxed to [facility] at [phone] * Telephone Encounter - Sheree Savage Ma - 07/08/2022 12:45 PM EST Request sent to radiology * Telephone Encounter - Doreen Le PA-C - 07/08/2022 10:37 AM EST Please have 02/21/[address] IVC PE from [facility] imported and reviewed by radiologist for comparison with 03/19/2022 CT chest w IVCON PE. Not sure if this is the right order or even if needs order. Telephone on 07/08/22 CONSULT TO RADIOLOGY ThanksEdmund PA-C documented in this encounterCleveland Clinic [facility]01-03-2023 History of Present illness Narrative* Doreen Le PA-C - 07/07/2022 9:00 AM EST 76 year old female with c/o here for follow up H/o rheumatic heart disease (primary encounter diagnosis) Aortic prosthetic valve regurgitation, subsequent encounter Sss (sick sinus syndrome) (hcc) Atrial fibrillation, unspecified type (hcc) Presence of watchman left atrial appendage closure device Chronic combined systolic and diastolic chf (congestive heart failure) ([facility]) S/p placement of cardiac pacemaker Dilated [...] 1.00 - 4.00 k/uL 2.05 2.22 1.81 Menard% % 12.7 12.3 12.6 Abs Menard <0.87 k/uL 0.93 (H) 1.06 (H) 0.74 [...] artery Neurosurgeon Dr. Dianne Rogers, Susan Mtz [facility] 12/07/2017 note: f/u MRA 202012/02/2017 MRA [...] recent CT scans which were done in [facility]. Anemia, blood loss As above CBC improving 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 Lua PACEMAKER 10/2019 PART. HYSTERECTOMY W/WO RMVL OVARIES/TUBES 1974 h/o cervical cancer ovaries remain PAST SURGICAL HISTORY OF 1996 Aortic valve repair, Dr. Apodaca PAST SURGICAL HISTORY OF 2001 [address] Beltrán, [facility] PAST SURGICAL HISTORY OF 2015 clipping [...] Abscess W/O Bleeding Renal Cell Carcinoma, Right ([facility]) Iron Deficiency Anemia Hypomagnesemia Gastrointestinal Hemorrhage Associated With Acute Gastritis Esophageal Stenosis Dilated Cardiomyopathy (Hcc) Chronic Systolic Congestive Heart Failure (Hcc) Sss (Sick Sinus Syndrome) (Formerly [facility]) Duodenal Ulcer Type 2 Diabetes Mellitus With Diabetic Peripheral Angiopathy Without Gangrene, Without Long-Term Current Use of Insulin ([facility]) Longstanding Persistent Atrial Fibrillation ([facility]) S/P Placement of Cardiac Pacemaker Ckd (Chronic Kidney Disease) Platelet Inhibition Due to Plavix Diverticulosis Lung Nodule, Solitary Red Blood Cell Antibody Positive Iron Deficiency Anemia Secondary to Inadequate Dietary Iron Intake Iron Malabsorption Chronic Renal Failure, Stage 3b ([facility]) Current Outpatient Medications Medication Sig Dispense Refill losartan (COZAAR) 50 mg tablet Take 1 tablet by mouth once daily. 90 tablet 3 metoprolol succinate ER (TOPROL XL) 50 mg 24 hr tablet TAKE 1 TABLET BY MOUTH TWICE A DAY 60 furosemide (LASIX) 20 mg tablet Take 2 [...] Never done COVID-19 VACCINE(4 - Booster for Win[employer] series) due on 05/08/2021 ADVANCE DIRECTIVE DISCUSSION [...] continue medicatioins 3. SSS (sick sinus syndrome) ([facility]) - ICD9: 427.81, ICD10: I49.5 4. Atrial fibrillation, unspecified type ([facility]) - ICD9: 427.31, ICD10: I48.91 5. Presence [...] ICD9: 443.9, ICD10: I73.9 Following with vascular Doreen Le PA-C F/u 3 months Doreen Le PA-C documented in this encounterCleveland Clinic [facility]11-21-2022 Miscellaneous Notes* Telephone Encounter - Lizeth Du LPN - 05/25/2022 7:25 AM EST Refill not appropriate at this time, according to records there should be at least 2 refills available. documented in this encounterCleveland Clinic [facility]ucl[facility]11-10-2022 History of Present illness Narrative* Sonny Lund MD - 05/14/2022 9:28 AM EST PATIENT NAME: Berta Sanches. CLINIC NO: [id number]. ATTENDING PHYSICIAN: Sonny Lund MD. DATE OF SERVICE:05/14/2022. DIAGNOSIS: Iron deficiency anemia HPI: This is a 76-year-old lady with history of atrial fibrillation, prosthetic aortic valve replacement and congestive heart failure who [facility] for decompensated heartfailure and severe anemia [...] Abs Lymph 1.00 - 4.00 k/uL 1.81 Menard% % 12.6 Abs Menard <0.87 k/uL 0.74 Eosin% % 2.2 Abs [...] updated as necessary. Sonny Lund MD Cc: oDreen Le PA-C documented in this encounterCleveland Clinic [facility]10-19-2022 Miscellaneous Notes* Telephone Encounter - Lizeth Mcknight [...] 06-08-2022. Lizeth Mcknight LPN documented in this encounterCleveland Clinic Eucl[facility] Hospital10-06-2022 Miscellaneous Notes* Telephone Encounter - Sheree Savage Ma - 04/09/2022 3:32 PM EDT Please schedule CT chest for 3 months. Thanks, Edmund Le PA-C documented in this [facility]10-06-2022 History of Present illness Narrative* Brayan Chicas 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 Lua PACEMAKER 10/2019 PART. HYSTERECTOMY W/WO RMVL OVARIES/TUBES 1974 h/o cervical cancer ovaries remain PAST SURGICAL HISTORY OF 1996 Aortic valve repair, Dr. Apodaca PAST SURGICAL HISTORY OF 2001 [address] Beltrán, [facility] PAST SURGICAL HISTORY OF 2015 clipping [...] 74 - 99 mg/dL Final Comment: The [place] [employer] (ADA) provides guidance for cutoff [...] Standards of Medical Care in Diabetes 2016, [place] [employer]. Diabetes Care. 2016.39(Suppl 1). I [...] extrapolated by contextual derivation. documented in this encounterCleveland Clinic Eucl[facility] Hospital10-05-2022 Miscellaneous Notes* Telephone Encounter - Daysi Gray [...] infusions. Ralph Mujica DO documented in this encounterCleveland Clinic Euclid Hospital10-03-2022 Instructions* Patient Instructions* M Claudia Le PA-C [...] cup-Beef (cooked) 2 oz-Beet greens (cooked) 1/2 cup-[place] nuts 5 medium-Cereals 1 oz-Chicken (cooked) 3 [...] cup- Tongue 2 oz- Tuna 1/2 cup- [place] (cooked) 1 oz- Veal (cooked) 1 oz- Watermelon (6"x11/2") 1 slice-Wheat Germ 2 tbsp. Iron supplements are absorbed best when taken between meals, with liquids other than milk, coffee, or tea. Taking them at bedtime often helps reduce the chance of nausea. If you can't tolerate daily, try at least three times a week. documented in this encounterCleveland Clinic [facility]10-03-[facility] History of Present illness Narrative* Doreen Le PA-C - 04/06/2022 10:20 AM EDT 76 year old female with c/o here for follow hospital Not doing well Very SOB No stamina, very SOB. Mentioned iron infusions. Hospital discharge follow-up Facility [facility] Admission date 03/19/2022 Discharge date 03/22/2022 Pre-hospitalization details: See note 03/19/2022: CHF, EKG AF, hx GIB melena admitted 02/21-02/24/2022 [facility]. 03/19/22 Sent from office to [facility] ED: VS 145/[id number]- 98% RA Exam + rales. 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 A right 2.5 cm superior pole the rightkidney mass was found concerning for neoplasm that had been noted as long ago as June 2019. 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 Lua PACEMAKER 10/2019 PART. HYSTERECTOMY W/WO RMVL OVARIES/TUBES 1974 h/o cervical cancer ovaries remain PAST SURGICAL HISTORY OF 1996 Aortic valve repair, Dr. Apodaca PAST SURGICAL HISTORY OF 2001 [address] Beltrán, [facility] PAST SURGICAL HISTORY OF 2016 clipping [...] (TOPEX) X (OR/PROCEDURE) PRSangeeta Gustafson MD [address] [place] at 03/03/22 1149 fentaNYL 50 mcg/mL injection [...] comparison. Doreen Le PA-C documented in this encounterCleveland Clinic Eucl[facility]09-26-2022 Miscellaneous Notes* Telephone Encounter - Sigifredo Rivera LPN - 03/30/2022 10:53 AM EDT TC to pt, appt scheduled with PCP on 04/06 per pt request. Sigifredo Rivera LPN * Telephone Encounter - Doreen Le PA-C - 03/30/2022 6:09 AM EDT Please advise I have reviewed discharge notes. For some reason the attending did not schedule hospital follow up here and it is most important forher to see specialists but we need some kind of hospital follow up in the next 4 -6 weeks. Thanks, Edmund Le PA-C documented in this encounterCleveland Clinic Eucl[facility]09-26-2022 Instructions* Patient Instructions* Carla Burdick MD - 03/30/2022 9:13 AM EDT We are increasing the Toprol (Metoprolol succinate) to 50 mg two times per day We are replacing the Lisinopril with Losartan 25 mg once per day Repeat blood work 7-10 days after starting the Losartan documented in this encounterCleveland Clinic Eucl[facility]09-26-2022 History of Present illness Narrative* Carla Burdick MD - 03/30/2022 8:40 AM EDT Images from the original note were not included. [facility] SECTION OF REGIONAL CARDIOLOGY Cardiology ([facility]) [address] [facility] [id number] OUTPATIENT VISIT DATE 03/30/2022 PRIMARY CARE PHYSICIAN: Doreen Le [address] [place] [address] HISTORY OF PRESENT ILLNESS: Ms. Sanches is a 76 year old woman with a history of remote aortic valve replacement with homograft in 1996 and possible repair of the ascending aorta, hypertension, dyslipidemia, atrial fibrillation with history of pulmonary vein isolation procedures, pacemaker placement recent watchman procedurewho presents for follow-up after hospital admission for congestive heart failure. She had gone on acruise to [place] and developed lower extremity edema and worsening shortness of breath. On return to [place], she had worsening symptoms of weight gain, PND, and orthopnea symptoms. 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 Lua PACEMAKER 10/2019 PART. HYSTERECTOMY W/WO RMVL OVARIES/TUBES 1974 h/o cervical cancer ovaries remain PAST SURGICAL HISTORY OF 1996 Aortic valve repair, Dr. Apodaca PAST SURGICAL HISTORY OF 2001 [address] Beltrán, [facility] PAST SURGICAL HISTORY OF 2015 clipping [...] - Exam was compared with the prior [facility] echocardiographic exam performed on 01/12/2022. Small 2mm [...] 09/10/2021: LBB in RV port PRESENTING EGM: AFL/ADJUNCT FACULTY FOR MEDICAL TERMINOLOGY BATTERY STATUS: Estimated time remaining to YUE [...] 2019. Carla Burdick MD documented in this encounterCleveland Clinic Eucl[facility]09-17-2022 Miscellaneous Notes* Telephone Encounter - Juan Diego Carroll Jr., MD - 03/21/2022 10:51 AM EDT [facility] consult Needs appt with kan in [place] * Telephone Encounter - Juan Diego Carroll Jr., MD - 03/21/2022 10:51 AM EDT ----- Message from Huy Chauhan MD sent at 03/21/2022 9:11 AM EDT ----- Regarding: Renal mass Thank you Mike. Son documented in this encounterCleveland Clinic Eucl[facility]09-16-2022 History of Present illness Narrative* Sheridan Cervantes RN - 03/20/2022 8:22 AM EDT TRANSITION CARE MANAGEMENT (TCM) FOLLOW-UP NOTE Provider Action/FYI Chart reviewed. TCM removed name from TEAMS due to [facility] admission 03/19/22 chf. TCM follow up pending hospital discharge disposition. Summary: Pt discharged from [facility] on 02/24. 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 Anemia due to GI blood loss 10/24/201903/05 [...] 12/22/2018 Prosthetic aortic valve stenosis 11/19/2016 12/22/2018 [facility] current use of antiarrhythmic medical therapy 10/20/2016 [...] diarrhea. Patient had her eyes examined in [place] this year and was told that she [...] of this encounter (statuses as of 03/23/2022) [facility] of Past illness Narrative* Problem Noted [...] get beds in local hospital, transferred to [facility]. Anemia due to GI blood loss 10/24/201903/05 [...] 12/22/2018 Prosthetic aortic valve stenosis 11/19/2016 12/22/2018 [facility] current use of antiarrhythmic medical therapy 10/20/2016 [...] diarrhea. Patient had her eyes examined in [place] this year and was told that she [...] of this encounter (statuses as of 03/28/2022) [facility] of Past illness Narrative* Problem Noted [...] get beds in local hospital, transferred to [facility]. Anemia due to GI blood loss 10/24/201903/05 [...] 12/22/2018 Prosthetic aortic valve stenosis 11/19/2016 12/22/2018 [facility] current use of antiarrhythmic medical therapy 10/20/2016 [...] diarrhea. Patient had her eyes examined in [place] this year and was told that she [...] of this encounter (statuses as of 03/30/2022) [facility] of Past illness Narrative* Problem Noted [...] get beds in local hospital, transferred to [facility]. Anemia due to GI blood loss 10/24/201903/05 [...] 12/22/2018 Prosthetic aortic valve stenosis 11/19/2016 12/22/2018 [facility] current use of antiarrhythmic medical therapy 10/20/2016 [...] diarrhea. Patient had her eyes examined in [place] this year and was told that she [...] of this encounter (statuses as of 03/30/2022) [facility] of Past illness Narrative* Problem Noted [...] get beds in local hospital, transferred to [facility]. 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 Patient had her eyes examined in [place] this year and was told that she [...] of this encounter (statuses as of 04/06/2022) [facility] of Past illness Narrative* Problem Noted [...] get beds in local hospital, transferred to [facility]. Anemia due to GI blood loss 10/24/201903/05 [...] 12/22/2018 Prosthetic aortic valve stenosis 11/19/2016 12/22/2018 [facility] current use of antiarrhythmic medical therapy 10/20/2016 [...] diarrhea. Patient had her eyes examined in [place] this year and was told that she [...] of this encounter (statuses as of 04/07/2022) [facility] of Past illness Narrative* Problem Noted [...] get beds in local hospital, transferred to [facility]. 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 Patient had her eyes examined in [place] this year and was told that she [...] of this encounter (statuses as of 04/08/2022) [facility] of [facility] illness Narrative* Problem Noted [...] get beds in local hospital, transferred to [facility]. Anemia due to GI blood loss 10/24/201903/05 [...] 12/22/2018 Prosthetic aortic valve stenosis 11/19/2016 12/22/2018 [facility] current use of antiarrhythmic medical therapy 10/20/2016 [...] diarrhea. Patient had her eyes examined in [place] this year and was told that she [...] of this encounter (statuses as of 04/09/2022) [facility] of [facility] Narrative* Problem Noted [...] get beds in local hospital, transferred to [facility]. Anemia due to GI blood loss 10/24/201903/05 [...] 12/22/2018 Prosthetic aortic valve stenosis 11/19/2016 12/22/2018 [facility] current use of antiarrhythmic medical therapy 10/20/2016 [...] diarrhea. Patient had her eyes examined in [place] this year and was told that she [...] of this encounter (statuses as of 04/17/2022) [facility] Narrative* Problem Noted [...] get beds in local hospital, transferred to [facility]. 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 Patient had her eyes examined in [place] this year and was told that she [...] of this encounter (statuses as of 04/20/2022) [facility] Narrative* Problem Noted [...] get beds in local hospital, transferred to [facility]. 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 Patient had her eyes examined in [place] this year and was told that she [...] of this encounter (statuses as of 04/22/2022) [facility] Narrative* Problem Noted [...] get beds in local hospital, transferred to [facility]. Anemia due to GI blood loss 10/24/201903/05 [...] 12/22/2018 Prosthetic aortic valve stenosis 11/19/2016 12/22/2018 [facility] current use of antiarrhythmic medical therapy 10/20/2016 [...] diarrhea. Patient had her eyes examined in [place] this year and was told that she [...] of this encounter (statuses as of 04/23/2022) [facility] Narrative* Problem Noted [...] get beds in local hospital, transferred to [facility]. Anemia due to GI blood loss 10/24/201903/05 [...] 12/22/2018 Prosthetic aortic valve stenosis 11/19/2016 12/22/2018 [facility] current use of antiarrhythmic medical therapy 10/20/2016 [...] diarrhea. Patient had her eyes examined in [place] this year and was told that she [...] of this encounter (statuses as of 04/28/2022) [facility] Narrative* Problem Noted [...] get beds in local hospital, transferred to [facility]. 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 Patient had her eyes examined in [place] this year and was told that she [...] of this encounter (statuses as of 05/15/2022) [facility] Narrative* Problem Noted [...] get beds in local hospital, transferred to [facility]. Anemia due to GI blood loss 10/24/201903/05 [...] 12/22/2018 Prosthetic aortic valve stenosis 11/19/2016 12/22/2018 [facility] current use of antiarrhythmic medical therapy 10/20/2016 [...] diarrhea. Patient had her eyes examined in [place] this year and was told that she [...] of this encounter (statuses as of 05/25/2022) [facility] Narrative* Problem Noted [...] get beds in local hospital, transferred to [facility]. Anemia due to GI blood loss 10/24/201903/05 [...] 12/22/2018 Prosthetic aortic valve stenosis 11/19/2016 12/22/2018 [facility] current use of antiarrhythmic medical therapy 10/20/2016 [...] diarrhea. Patient had her eyes examined in [place] this year and was told that she [...] of this encounter (statuses as of 05/29/2022) [facility] Narrative* Problem Noted [...] get beds in local hospital, transferred to [facility]. Anemia due to GI blood loss 10/24/201903/05 [...] 12/22/2018 Prosthetic aortic valve stenosis 11/19/2016 12/22/2018 [facility] current use of antiarrhythmic medical therapy 10/20/2016 [...] diarrhea. Patient had her eyes examined in [place] this year and was told that she [...] of this encounter (statuses as of 07/06/2022) [facility] Narrative* Problem Noted [...] get beds in local hospital, transferred to [facility]. Anemia due to GI blood loss 10/24/201903/05 [...] 12/22/2018 Prosthetic aortic valve stenosis 11/19/2016 12/22/2018 [facility] current use of antiarrhythmic medical therapy 10/20/2016 [...] diarrhea. Patient had her eyes examined in [place] this year and was told that she [...] of this encounter (statuses as of 07/09/2022) [facility] Narrative* Problem Noted [...] get beds in local hospital, transferred to [facility]. 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 Patient had her eyes examined in [place] this year and was told that she [...] of this encounter (statuses as of 07/22/2022) [facility] Narrative* Problem Noted [...] get beds in local hospital, transferred to [facility]. 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 Patient had her eyes examined in [place] this year and was told that she [...] of this encounter (statuses as of 07/22/2022) [facility] Narrative* Problem Noted [...] get beds in local hospital, transferred to [facility]. 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 Patient had her eyes examined in [place] this year and was told that she [...] of this encounter (statuses as of 09/01/2022) [facility] Narrative* Problem Noted [...] get beds in local hospital, transferred to [facility]. 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 Patient had her eyes examined in [place] this year and was told that she [...] of this encounter (statuses as of 09/27/2022) [facility] Narrative* Problem Noted [...] get beds in local hospital, transferred to [facility]. Anemia due to GI blood loss 10/24/201903/05 [...] 12/22/2018 Prosthetic aortic valve stenosis 11/19/2016 12/22/2018 [facility] current use of antiarrhythmic medical therapy 10/20/2016 [...] diarrhea. Patient had her eyes examined in [place] this year and was told that she [...] of this encounter (statuses as of 09/28/2022) [facility] Narrative* Problem Noted [...] get beds in local hospital, transferred to [facility]. Anemia due to GI blood loss 10/24/201903/05 [...] 12/22/2018 Prosthetic aortic valve stenosis 11/19/2016 12/22/2018 [facility] current use of antiarrhythmic medical therapy 10/20/2016 [...] diarrhea. Patient had her eyes examined in [place] this year and was told that she [...] of this encounter (statuses as of 09/29/2022) [facility] Narrative* Problem Noted [...] get beds in local hospital, transferred to [facility]. 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 Patient had her eyes examined in [place] this year and was told that she [...] of this encounter (statuses as of 10/07/2022) [facility] Narrative* Problem Noted [...] get beds in local hospital, transferred to [facility]. 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 Patient had her eyes examined in [place] this year and was told that she [...] of this encounter (statuses as of 12/29/2022) [facility] Narrative* Problem Noted [...] get beds in local hospital, transferred to [facility]. 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 Patient had her eyes examined in [place] this year and was told that she [...] of this encounter (statuses as of 01/09/2023) [facility] Narrative* Problem Noted [...] get beds in local hospital, transferred to [facility] 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 Patient had her eyes examined in [place] this year and was told that she [...] of this encounter (statuses as of 01/28/2023) [facility] Narrative* Problem Noted [...] get beds in local hospital, transferred to [facility]. 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 Patient had her eyes examined in [place] this year and was told that she [...] of this encounter (statuses as of 03/15/2023) [facility] Narrative* Problem Noted [...] get beds in local hospital, transferred to [facility]. 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 Patient had her eyes examined in [place] this year and was told that she [...] of this encounter (statuses as of 03/28/2023) [facility] Narrative* Problem Noted [...] get beds in local hospital, transferred to [facility]. 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 Patient had her eyes examined in [place] this year and was told that she [...] of this encounter (statuses as of 05/07/2023) [facility] Narrative* Problem Noted [...] get beds in local hospital, transferred to [facility]. 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 Patient had her eyes examined in [place] this year and was told that she [...] of this encounter (statuses as of 05/07/2023) [facility] Narrative* Problem Noted [...] get beds in local hospital, transferred to [facility]. 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 Patient had her eyes examined in [place] this year and was told that she [...] of this encounter (statuses as of 05/21/2023) [facility] Narrative* Problem Noted [...] get beds in local hospital, transferred to [facility]. 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 Patient had her eyes examined in [place] this year and was told that she [...] of this encounter (statuses as of 06/08/2023) [facility] History of Past illness Narrative* Problem Noted [...] get beds in local hospital, transferred to [facility]. 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 Patient had her eyes examined in [place] this year and was told that she [...] of this encounter (statuses as of 07/05/2023) [facility] History of Past illness Narrative* Problem Noted [...] get beds in local hospital, transferred to [facility]. 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 Patient had her eyes examined in [place] this year and was told that she [...] of this encounter (statuses as of 10/15/2023) [facility] History of Past illness Narrative* Problem Noted [...] get beds in local hospital, transferred to [facility]. 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 Patient had her eyes examined in [place] this year and was told that she [...] of this encounter (statuses as of 10/16/2023) [facility] History of Past illness Narrative* Problem Noted [...] get beds in local hospital, transferred to [facility]. 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 Patient had her eyes examined in [place] this year and was told that she [...] of this encounter (statuses as of 10/21/2023) [facility] History of Present illness Narrative* Doreen Le PA-C - 03/19/2022 10:40 AM EDT 76 year old female with extensive hx AF, CHF, HTN, S/P aortic valve replacemet, s/p Watchman procedure recently off coumadin c/o leg swelling bilaterally over last 4-5 days. Flew home from [place] last night. Did get up and walk several times during flight. . SOB x 4-5 days, can hardly go more than 10-15 steps without resting. No chest pain. Feels heart racing at times. No syncopal sx. Feels leg are warm, heavy No pain. Got back from [place] 2am this morning Able to lay supine. 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 Lua PACEMAKER 10/2019 PART. HYSTERECTOMY W/WO RMVL OVARIES/TUBES 1974 h/o cervical cancer ovaries remain PAST SURGICAL HISTORY OF 1996 Aortic valve repair, Dr. Apodaca PAST SURGICAL HISTORY OF 2001 [address] Beltrán, [facility] PAST SURGICAL HISTORY OF 2015 clipping [...] X (OR/PROCEDURE) PRN Randy Gustafson MD [address] [place] at 03/03/22 1149 fentaNYL 50 mcg/mL injection [...] <130/80 Doreen Le PA-C documented in this encounterC[facility] History of Present illness Narrative* Sheridan Cervantes RN - 03/05/2022 12:39 PM EDT TRANSITION CARE MANAGEMENT (TCM) FOLLOW-UP NOTE Provider Action/FYI Chart reviewed, TCM follow up call deferred due to 03/03 office visit with JASPREET Torres. Summary: Pt discharged from [facility] on 02/24. 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 plan for next outreach: Will follow up Signature Sheridan Cervantes RN March 05, 2022 documented in this encounterCleveland Clinic [facility] Miscellaneous Notes* Addendum Note - Radha Torres APRN.CNP - 03/04/2022 10:54 AM EDTAddended by: RADHA TORRES on: 03/04/2022 10:54 AM Modules accepted: Orders, SmartSet * Addendum Note - Radha Torres APRN.CNP - 03/04/2022 9:46 AM EDTAddended by: RADHA TORRES on: 03/04/2022 09:46 AM Modules accepted: Orders documented in this encounterC[facility] Clinic [facility]-30-[facility] History of Present illness Narrative* Radha Torres APRN.CNP - 03/03/2022 12:00 PM EDT Images from the original note were not included. [facility] [place] Martha Meléndez Department of Cardiovascular Medicine SECTION OF CARDIAC PACING and ELECTROPHYSIOLOGY OUTPATIENT VISIT DATE March 03, 2022 OUTPATIENT VISIT TYPE ESTABLISHED PRIMARY CARE PHYSICIAN: Doreen Le [address] [place] [address] CHIEF COMPLAINT: Post Watchman follow up HISTORY [...] upper and lower endoscopy were non diagnostic. 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 Lua PACEMAKER 10/2019 PART. HYSTERECTOMY W/WO RMVL OVARIES/TUBES 1974 h/o cervical cancer ovaries remain PAST SURGICAL HISTORY OF 1996 Aortic valve repair, Dr. Apodaca PAST SURGICAL HISTORY OF 2001 [address] Beltrán, [facility] PAST SURGICAL HISTORY OF 2015 clipping [...] yearly in-clinic device checks. Ying Hart RN [place] to Dr. Fay in Dr. Gomez's absence [...] assess as well. - The following is membership sales representative of measurements of LAXMI dimensions [...] upper and lower endoscopy were non diagnostic. [id number] score: 7 (congestive heart failure, hypertension, age [...] INFORMATION: Radha Torres APRN.JASPREET documented in this encounterCleveland Clinic [facility] Nurse Note* Alexandre Avalos RN - 03/03/2022 [...] RN In Department: CARDIOLOGY documented in this encounterC[facility]08-29-2022 Miscellaneous Notes* Telephone Encounter - Saima England [...] In Department of CARDIOLOGY. documented in this encounterC[facility] Clinic [facility] History of Present illness Narrative* Harika Tomas RN - 02/25/2022 2:27 PM EDT TCM Home Visit Referral Source of Stratification: [facility] Admission Status: Discharged Readmission Risk Score: 18 [...] PROGRAM Provider Action/FYI: SUMMARY: Pt discharged from [facility] on 02/24. Admitted for: PRINCIPAL DIAGNOSIS: GI bleeding diverticular bleed/acute blood loss anemia Contact made with patient: No - 2nd unsuccessful attempt - end outreach and close encounter Outreach ended Harika Tomas RN BSN [facility] [phone] * Harika Tomas RN - 02/25/2022 10:14 AM EDT TCM Home Visit Referral Source of Stratification: [facility] Admission Status: Discharged Readmission Risk Score: 18 [...] today or tomorrow SUMMARY: Pt discharged from [facility] on 02/24. Admitted for: PRINCIPAL DIAGNOSIS: GI bleeding diverticular bleed/acute blood loss anemia Contact made with patient: No - next outreach attempt will be on next day Outreach ended Harika Tomas RN BSN [facility] [phone] documented in this encounterC[facility] Clinic [facility] History of Past illness Narrative* Problem Noted [...] get beds in local hospital, transferred to [facility]. 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 Patient had her eyes examined in [place] this year and was told that she [...] of this encounter (statuses as of 02/25/2022) [facility] History of Past illness Narrative* Problem Noted [...] get beds in local hospital, transferred to [facility]. 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 Patient had her eyes examined in [place] this year and was told that she [...] of this encounter (statuses as of 03/02/2022) [facility] History of Past illness Narrative* Problem Noted [...] get beds in local hospital, transferred to [facility]. 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 Patient had her eyes examined in [place] this year and was told that she [...] of this encounter (statuses as of 03/03/2022) [facility] History of Past illness Narrative* Problem Noted [...] get beds in local hospital, transferred to [facility]. 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 Patient had her eyes examined in [place] this year and was told that she [...] of this encounter (statuses as of 03/04/2022) [facility] History of Past illness Narrative* Problem Noted [...] get beds in local hospital, transferred to [facility]. 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 Patient had her eyes examined in [place] this year and was told that she [...] of this encounter (statuses as of 03/05/2022) [facility] History of Past illness Narrative* Problem Noted [...] get beds in local hospital, transferred to [facility]. 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 Patient had her eyes examined in [place] this year and was told that she [...] of this encounter (statuses as of 03/11/2022) [facility] History of Past illness Narrative* Problem Noted [...] get beds in local hospital, transferred to [facility]. 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 Patient had her eyes examined in [place] this year and was told that she [...] of this encounter (statuses as of 03/20/2022) [facility] History of Past illness Narrative* Problem Noted [...] get beds in local hospital, transferred to [facility]. 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 Patient had her eyes examined in [place] this year and was told that she [...] of this encounter (statuses as of 03/20/2022) [facility] History of Past illness Narrative* Problem Noted [...] get beds in local hospital, transferred to [facility]. 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 Patient had her eyes examined in [place] this year and was told that she [...] of this encounter (statuses as of 03/21/2022) [facility] Miscellaneous Notes* Telephone Encounter - Cande Jmaison PA-C - 02/20/2022 4:06 PM EDT Path [...] testing. Giovanna Powell RN documented in this encounterCleveland Clinic [facility]08-[facility] History of Present illness Narrative* M FERNANDO [...] anxious about potential risk of having to [place] with family. 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 Lua PACEMAKER 10/2019 PART. HYSTERECTOMY W/WO RMVL OVARIES/TUBES 1974 h/o cervical cancer ovaries remain PAST SURGICAL HISTORY OF 1996 Aortic valve repair, Dr. Apodaca PAST SURGICAL HISTORY OF 2001 [address] Beltrán, [facility] PAST SURGICAL HISTORY OF 2015 clipping [...] Heart Failure (Hcc) Sss (Sick Sinus Syndrome) (Formerly [facility]) Duodenal Ulcer Type 2 Diabetes Mellitus With [...] PNL Doreen Le PA-C documented in this encounterCleveland Clinic [facility]22 Miscellaneous Notes* Telephone Encounter - Deonna Bryant - 01/21/2022 10:30 AM EDT January 21, 2022 Patient Contact Number: [phone] (home) [phone] (cell) Patient last seen within the last year: Yes Reason for Call: Patient called to schedule follow up from Watchman procedure. Order for ABDEIL needs to be placed (can be done by MANAGER CONFIGURATION) and patient should contact office as soon as ABDIEL is done so it can be reviewed (should be done 45 days after the procedure). MANAGER CONFIGURATION: Please place Order for ABDIEL. Admin to request ABDIEL for after 02/26/2022 but before 03/07/2022. Thank you, Deonna Bryant, Admin documented in this encounterCleveland Clinic [facility]07-18-2022 Miscellaneous Notes* Telephone Encounter - Ivory Graham - 01/19/2022 11:05 AM EDT Call from pharmacy requesting refill. Pending Prescriptions Disp Refills ASPIRIN 81 MG CHEWABLE TABLET 90 tablet 3 Sig: Take 1 tablet by mouth once daily. BRAYAN: No Patient last seen 01/09/2022 Ivory Graham documented in this encounterCleveland Clinic [facility]22 Instructions* Patient Instructions* Doreen Le PA-C - [...] keep your stress under control. Published by [employer]. This content is reviewed periodically and is subject to change as new health information becomes available. The information is intended to inform and educate and is not a replacement for medical evaluation, advice, diagnosis or treatment by a healthcare professional. Developed by [employer]. Copyright 2005 [employer] and/or one of its subsidiaries. All Rights Reserved. 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 Lua PACEMAKER 10/2019 PART. HYSTERECTOMY W/WO RMVL OVARIES/TUBES 1974 h/o cervical cancer ovaries remain PAST SURGICAL HISTORY OF 1996 Aortic valve repair, Dr. Apodaca PAST SURGICAL HISTORY OF 2001 [address] Beltrán, [facility] PAST SURGICAL HISTORY OF 2016 clipping [...] Colon Skin Cancer Pad (Peripheral Artery Disease) (Formerly [facility]) Pedro Aneurysm of Anterior Communicating Artery Stage 3 Chronic Renal Impairment Associated With Type 2 Diabetes Mellitus ([facility]) History of Pulmonary Embolism Ascending Aorta Dilatation (Formerly [facility]) Chronic Bilateral Pleural Effusions Colovesical Fistula Renal Mass, Right Diverticulitis Large Intestine W/O Perforation Or Abscess W/O Bleeding Renal Cell Carcinoma, Right (Hcc) Iron Deficiency Anemia Hypomagnesemia Gastrointestinal Hemorrhage Associated With Acute Gastritis Esophageal Stenosis Dilated Cardiomyopathy (Hcc) Chronic Diastolic Congestive Heart Failure ([facility]) Sss (Sick Sinus Syndrome) (Formerly [facility]) Duodenal Ulcer Type 2 Diabetes Mellitus With Diabetic Peripheral Angiopathy Without Gangrene, Without Long-Term Current Use of Insulin (Formerly [facility]) Atrial Fibrillation (Formerly [facility]) Current Outpatient Medications Medication Sig Dispense Refill [...] Resp 16 Wt 64.4 kg (142 lb) ZzN024% BMI 25.15 kg/m Pleasant frail adult womanin [...] OINTMENT Doreen Le PA-C documented in this encounterCleveland Clinic [facility] History of Present illness Narrative* Diane Blanchard [...] discussed with Physician, nurse practitioner or Physician multimedia assistant upon discharge Instructions for transmitting EKG to Monitoring Center 3 month follow up instructions Contact number for information and questions Patient Evaluation: Verbalizes understanding Follow Up Plan: Follow up as directed by MD. Supplemental Material Given: Written Material Patient education regarding radiation exposure. Instructed By Diaen Blanchard RN. In Department of CARDIOLOGY. documented in this encounterCleveland Clinic [facility]07-08-2022 Instructions* Patient Instructions* Emilia Diallo MD - 01/09/2022 2:19 PM EDT Proceed with your Watchman evaluation. Consider discussing a hematology evaluation in addition to further GI work up as appropriate. Follow up with Dr. Burdick as planned. Follow up with PCP re: prevention in addition to follow up of the kidney mass that was identified on the CT. documented in this encounterCleveland Clinic [facility]07-08-2022 History of Present illness Narrative* Emilia Diallo MD - 01/09/2022 2:15 PM EDT Images from the original note were not included. [facility] [place] Martha Meléndez Department of Cardiovascular Medicine SECTION OF CLINICAL CARDIOLOGY OUTPATIENT VISIT DATE January 09, 2022 OUTPATIENT VISIT TYPE CON PRIMARY CARE PHYSICIAN: Doreen Le [address] [place] [address] REFERRING PHYSICIAN: Chandler Swan [address] [facility] [address] CHIEF COMPLAINT: Shared decision making for Watchman [...] 7.7. Received 2 unit(s) PRBCs last week. [id number] score: 7 (congestive heart failure, hypertension, age >/=75, diabetes, vascular disease, female) - on Xarelto 15 mg HASBLED score: 4 (HTN, CKD, bleeding, elderly) She complains of chronic shortness of breath and fatigue. She denies chest pain, orthopnea, cough, edema, palpitations, PND, lightheadedness or syncope. Nursing Intake : Ms. Berta Sanches is a 76 year old female from [place], [place] here today for preopeartive cardiovascular evaluation [...] watchman procedure on 01/12/[address] Chandler Swna. 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 Lua 10/2019: PACEMAKER 1974: PART. HYSTERECTOMY W/WO RMVL OVARIES/TUBES Comment: h/o cervical cancer ovaries remain 1996: PAST SURGICAL HISTORY OF Comment: Aortic valve repair, Dr. Apodaca 2001: PAST SURGICAL HISTORY OF Comment: [address] Beltrán, [facility] 2016: PAST SURGICAL HISTORY OF Comment: clipping [...] Abs Lymph 1.00 - 4.00 k/uL 1.82 Menard% % 14.0 Abs Menard <0.87 k/uL 1.27 (H) Eosin% % 1.9 [...] etiology while on Xarelto. Unknown etiology. Her [id number] is elevated at 7 portenidng an increased risk of CVA and her HASBLED score is elevated. It is reasonable to consider Watchman procedure as after undergoing a LAXMI closure procedure, she will not need rn long term care anticoagulation which eliminates anticoagulation side effects and major bleeding risk. After today's visit with Mrs. Sanches, which was dedicated solely for shared decision making visitregarding LAXMI closure device, she decided to proceed with the LAXMI appendage closure procedure scheduled to be done in the near [facility] at [facility]. Of note, she should continue with her [...] 09, 2022, 5:59 PM documented in this encounterCleveland Clinic [facility]07-01-2022 History and physical note * Chai Encinas [...] likely gallbladder issues. 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 Lua PACEMAKER 10/2019 PART. HYSTERECTOMY W/WO RMVL OVARIES/TUBES 1974 h/o cervical cancer ovaries remain PAST SURGICAL HISTORY OF 1996 Aortic valve repair, Dr. Apodaca PAST SURGICAL HISTORY OF 2001 [address] Beltrán, [facility] PAST SURGICAL HISTORY OF 2015 clipping [...] entered by the nurse and reviewed by al Nursing Notes: Stacie Mancera LPN 01/01/2022 9:48 [...] her for urgent upper endoscopy tomorrow in [place]. Diagnoses: (D50.0) Anemia, blood loss (primary encounter [...] needed. Chai Encinas MD documented in this encounterCleveland Clinic [facility]06-30-2022 Miscellaneous Notes* Telephone Encounter - Yessenia Monroe - 01/01/2022 10:27 AM EDT 01-02-2022 egd le claire documented in this encounterCleveland Clinic [facility]06-30-2022 History of Present illness Narrative* Chai Encinas [...] likely gallbladder issues. When she presented to [facility] department on February 13, 2018 she [...] She underwent upper and lower endoscopy at [facility] also for anemia on October 26, [...] Pedro aneurysm of anterior communicating artery Dr. 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 Lua PACEMAKER 10/2019 PART. HYSTERECTOMY W/WO RMVL OVARIES/TUBES 1974 h/o cervical cancer ovaries remain PAST SURGICAL HISTORY OF 1996 Aortic valve repair, Dr. Apodaca PAST SURGICAL HISTORY OF 2001 [address] Beltrán, [facility] PAST SURGICAL HISTORY OF 2016 clipping [...] entered by the nurse and reviewed by al Nursing Notes: Stacie Mancera LPN 01/01/2022 9:48 [...] her for urgent upper endoscopy tomorrow in [place]. Diagnoses: (D50.0) Anemia, blood loss (primary encounter [...] needed. Chai Encinas MD documented in this encounterCleveland Clinic [facility]06-30-2022 Nurse Note* Stacie Mancera LPN - 01/01/2022 [...] 2019 Stacie Mancera LPN documented in this encounterCleveland Clinic [facility]06-27-2022 Miscellaneous Notes* Telephone Encounter - Doreen Le PA-C - 12/29/2021 4:19 PM EDT Thanks for the help! Doreen Le PA-C * Telephone Encounter - Sheree Savage Ma - 12/29/2021 3:57 PM EDT Patient is scheduled for for transfusion of 2 units packed red blood cells at [facility] for 8 am tomorrow. Patient has been notified and will stop by tonight to get type and cross. documented in this encounterCleveland Clinic [facility]ucl[facility] Hospital06-25-2022 Miscellaneous Notes* Telephone Encounter - Sheree Savage [...] couple of days she will go to [facility] ED. Reason for Disposition [1] MILD [...] since yesterday. Protocols used: WEAKNESS (GENERALIZED) AND [id number] documented in this encounterCleveland Clinic Eucl[facility] Hospital06-25-2022 Miscellaneous Notes* Telephone Encounter - Radha Pyle RN - 12/27/2021 9:57 AM EDT Triage completed 12/27 for MC symptoms. See triage encounter. Radha Pyle RN documented in this encounterCleveland [facility]06-[facility]22 Miscellaneous Notes* Telephone Encounter - Marleen Schaffer [...] EDT December 25, 2021 Patient Contact Number: [phone] (home) [phone] (cell) Patient last seen within the last year: Yes Reason for Call: Medication Issue/Question: Patient states that she is supposed to decrease medication in preparation of surgery in two weeks, but she is having symptoms and is having difficulty tolorating. Thank you, Marisol Page documented in this encounterCleveland [facility]06-20-2022 Miscellaneous Notes* Telephone Encounter - Brittany Norton [...] need schedules to follow. documented in this encounterCleveland Clinic [facility]ucl[facility]06-13-2022 History of Present illness Narrative* Marisol Cook, [...] 15, 2021 11:04 AM documented in this encounterCleveland Clinic [facility]ucl[facility]06-13-2022 History of Present illness Narrative* M Claudia [...] bilateral inflow resting waveforms. 11/26/2021 f/u vascular MANAGER CONFIGURATION Na Ramirez 10/24/2018 US carotids: RIGHT: CCA plaques w/o significant hemodynamic stenosis, ICA 20-39%, VA patent w/antegrade. 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 Lua PACEMAKER 10/2019 PART. HYSTERECTOMY W/WO RMVL OVARIES/TUBES 1974 h/o cervical cancer ovaries remain PAST SURGICAL HISTORY OF 1996 Aortic valve repair, Dr. Apodaca PAST SURGICAL HISTORY OF 2001 [address] Beltrán, [facility] PAST SURGICAL HISTORY OF 2015 clipping [...] ICD10: D12.4 18. PAD (peripheral artery disease) ([facility]) - ICD9: 443.9, ICD10: I73.9 19. Type [...] - XR HIP GENERAL 3V PELV/AP/LAT LEFT Droeen Le PA-C documented in this encounterCleveland Clinic [facility]ucl[facility]06-02-2022 Miscellaneous Notes* Telephone Encounter - Marleen Schaffer [...] EDT December 03, 2021 Patient Contact Number: [phone] (home) [phone] (cell) Patient last seen within the last [...] you, Deonna Bryant, Admin documented in this encounterCleveland Clinic [facility]ucl[facility]05-26-2022 History of Present illness Narrative* Dagmar Thomas - 11/27/2021 12:36 PM EDT set documented in this encounterCleveland Clinic [facility]ucl[facility]05-25-2022 History of Present illness Narrative* Na Ramirez APRN.MANPOWER DEVELOPMENT SPECIALIST MANAGER - 11/26/2021 9:27 AM EDT VASCULAR SURGERY 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 Lua PACEMAKER 10/2019 PART. HYSTERECTOMY W/WO RMVL OVARIES/TUBES 1974 h/o cervical cancer ovaries remain PAST SURGICAL HISTORY OF 1996 Aortic valve repair, Dr. Apodaca PAST SURGICAL HISTORY OF 2001 [address] Beltrán, [facility] PAST SURGICAL HISTORY OF 2016 clipping [...] ambulation Time spent: 45 documented in this encounterCleveland Clinic Eucl[facility]04-20-2022 Miscellaneous Notes* Telephone Encounter - Marycruz Clau [...] encounter? yes Marycruz Olguin documented in this encounterCleveland Clinic [facility]ucl[facility]03-24-2022 Miscellaneous Notes* Telephone Encounter - Sigifredo Monge [...] to cancel the procedure on 09/29 in [place]. She thought this was cancelled about a month ago when she received a call. She stated she is so sorry. documented in this encounterCleveland Clinic Eucl[facility]03-22-2022 Miscellaneous Notes* Telephone Encounter - Inga Pineda [...] procedure. Patient stated understanding. documented in this encounterCleveland Clinic [facility]ucl[facility]08-14-2021 History of Past illness Narrative* Problem Noted [...] get beds in local hospital, transferred to [facility]. 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 Patient [place] examined in [place] this year and was told that she [...] of this encounter (statuses as of 09/23/2021) [facility] of Past illness Narrative* Problem Noted [...] get beds in local hospital, transferred to [facility]. 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 Patient had her eyes examined in [place] this year and was told that she [...] of this encounter (statuses as of 09/26/2021) [facility] History of Past illness Narrative* Problem Noted [...] get beds in local hospital, transferred to [facility]. 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 Patient had her eyes examined in [place] this year and was told that she [...] of this encounter (statuses as of 10/22/2021) [facility] History of Past illness Narrative* Problem Noted [...] get beds in local hospital, transferred to [facility]. 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 Patient had her eyes examined in [place] this year and was told that she [...] of this encounter (statuses as of 11/17/2021) [facility] of Past illness Narrative* Problem Noted [...] get beds in local hospital, transferred to [facility]. 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 Patient had her eyes examined in [place] this year and was told that she [...] of this encounter (statuses as of 11/27/2021) [facility] History of Past illness Narrative* Problem Noted [...] get beds in local hospital, transferred to [facility]. 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 Patient had her eyes examined in [place] this year and was told that she [...] of this encounter (statuses as of 11/27/2021) [facility] of Past illness Narrative* Problem Noted [...] get beds in local hospital, transferred to [facility]. 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 Patient had her eyes examined in [place] this year and was told that she [...] of this encounter (statuses as of 12/04/2021) [facility] of Past illness Narrative* Problem Noted [...] get beds in local hospital, transferred to [facility]. 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 Patient had her eyes examined in [place] this year and was told that she [...] of this encounter (statuses as of 12/04/2021) [facility] of Past illness Narrative* Problem Noted [...] get beds in local hospital, transferred to [facility]. 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 Patient had her eyes examined in [place] this year and was told that she [...] of this encounter (statuses as of 12/13/2021) [facility] of Past illness Narrative* Problem Noted [...] get beds in local hospital, transferred to [facility]. 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 Patient had her eyes examined in [place] this year and was told that she [...] of this encounter (statuses as of 12/15/2021) [facility] of Past illness Narrative* Problem Noted [...] get beds in local hospital, transferred to [facility]. 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 Patient had her eyes examined in [place] this year and was told that she [...] of this encounter (statuses as of 12/25/2021) [facility] of Past illness Narrative* Problem Noted [...] get beds in local hospital, transferred to [facility]. 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 Patient had her eyes examined in [place] this year and was told that she [...] of this encounter (statuses as of 12/27/2021) [facility] of Past illness Narrative* Problem Noted [...] get beds in local hospital, transferred to [facility]. 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 Patient had her eyes examined in [place] this year and was told that she [...] of this encounter (statuses as of 12/27/2021) [facility] of Past illness Narrative* Problem Noted [...] get beds in local hospital, transferred to [facility]. 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 Patient had her eyes examined in [place] this year and was told that she [...] of this encounter (statuses as of 12/29/2021) [facility] of Past illness Narrative* Problem Noted [...] get beds in local hospital, transferred to [facility]. 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 Patient had her eyes examined in [place] this year and was told that she [...] of this encounter (statuses as of 01/01/2022) [facility] of [facility] illness Narrative* Problem Noted [...] get beds in local hospital, transferred to [facility]. 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 Patient had her eyes examined in [place] this year and was told that she [...] of this encounter (statuses as of 01/03/2022) [facility] of [facility] illness Narrative* Problem Noted [...] get beds in local hospital, transferred to [facility]. 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 Patient had her eyes examined in [place] this year and was told that she [...] of this encounter (statuses as of 01/07/2022) [facility] Narrative* Problem Noted [...] get beds in local hospital, transferred to [facility]. 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 Patient had her eyes examined in [place] this year and was told that she [...] of this encounter (statuses as of 01/09/2022) [facility] Narrative* Problem Noted [...] get beds in local hospital, transferred to [facility]. 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 Patient had her eyes examined in [place] this year and was told that she [...] of this encounter (statuses as of 01/09/2022) [facility] of [facility] Narrative* Problem Noted [...] get beds in local hospital, transferred to [facility]. 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 Patient had her eyes examined in [place] this year and was told that she [...] of this encounter (statuses as of 01/10/2022) [facility] Narrative* Problem Noted [...] get beds in local hospital, transferred to [facility]. 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 Patient had her eyes examined in [place] this year and was told that she [...] of this encounter (statuses as of 01/15/2022) [facility] Narrative* Problem Noted [...] get beds in local hospital, transferred to [facility]. 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 Patient had her eyes examined in [place] this year and was told that she [...] of this encounter (statuses as of 01/16/2022) [facility] Narrative* Problem Noted [...] get beds in local hospital, transferred to [facility]. 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 Patient had her eyes examined in [place] this year and was told that she [...] of this encounter (statuses as of 01/20/2022) [facility] Narrative* Problem Noted [...] get beds in local hospital, transferred to [facility]. 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 Patient had her eyes examined in [place] this year and was told that she [...] of this encounter (statuses as of 01/21/2022) [facility] Narrative* Problem Noted [...] get beds in local hospital, transferred to [facility]. 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 Patient had her eyes examined in [place] this year and was told that she [...] of this encounter (statuses as of 01/23/2022) [facility] Narrative* Problem Noted [...] get beds in local hospital, transferred to [facility]. 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 Patient had her eyes examined in [place] this year and was told that she [...] of this encounter (statuses as of 02/09/2022) [facility] Narrative* Problem Noted [...] get beds in local hospital, transferred to [facility]. 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 Patient had her eyes examined in [place] this year and was told that she [...] of this encounter (statuses as of 02/20/2022) [facility] of [facility] illness Narrative* Problem Noted [...] get beds in local hospital, transferred to [facility]. 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 Patient had her eyes examined in [place] this year and was told that she [...] of this encounter (statuses as of 02/23/2022) [facility]* Diagnosis PAD (peripheral artery disease) (HCC)- Primary Peripheral vascular disease, unspecified Anemia due to chronic illness Anemia of other chronic disease Atrial fibrillation, unspecified type (HCC) documented in this encounter [facility]* Diagnosis PAD (peripheral artery disease) (HCC)- Primary Peripheral vascular disease, unspecified PVD (peripheral vascular disease) (HCC) Peripheral vascular disease, unspecified Atrial fibrillation, unspecified type (HCC) documented in this encounter [facility]* Diagnosis Renal mass, right- Primary [...] unspecified type (HCC) [facility] Diagnosis Anemia, unspecified type- Primary Atrial fibrillation, unspecified type (HCC) [facility] this encounter [facility]* Diagnosis Anemia, blood loss- Primary Iron [...] unspecified type (HCC) [facility]* Diagnosis Acute blood loss anemia Acute posthemorrhagic anemia Heme + stool Nonspecific abnormal finding in stool contents Epigastric pain Abdominal pain, epigastric Atrial fibrillation, unspecified type (HCC) documented in this encounter [facility] noteNo assessment information availableWMagruder Hospital Work Phone: Evaluation note* Diagnosis Heme positive stool- Primary Nonspecific abnormal finding in stool contents Blood loss anemia Iron deficiency anemia secondary to blood loss (chronic) Atrial fibrillation, unspecified type (HCC) documented in this encounter [facility] note* Diagnosis Atrial fibrillation, unspecified type (HCC)- Primary Gastrointestinal hemorrhage, unspecified gastrointestinal hemorrhage type Anemia due to chronic blood loss Iron deficiency anemia secondary to blood loss (chronic) Other fatigue SOB (shortness of breath) Shortness of breath documented in this encounter [facility] note* Diagnosis Atrial fibrillation, unspecified type (HCC)- Primary Presence of Watchman left atrial appendage closure device Herpes zoster without complication Herpes zoster without mention of complication documented in this encounter [facility] note* Diagnosis Paroxysmal atrial fibrillation (HCC)- Primary Atrial fibrillation documented in this encounter [facility] note* Diagnosis Paroxysmal atrial fibrillation (HCC)- Primary Atrial fibrillation Presence of Watchman left atrial appendage closure device documented in this encounter [facility] note* Diagnosis Rectal bleeding- Primary Hemorrhage of rectum and anus Anemia, blood loss Iron deficiency anemia secondary to blood loss (chronic) Diarrhea, unspecified type documented in this encounter [facility] note* Diagnosis Longstanding persistent atrial fibrillation (HCC)- Primary Presence of Watchman left atrial appendage closure device documented in this encounter [facility] note* Diagnosis Acute combined systolic and diastolic [...] Unspecified essential hypertension documented [facility] this encounter [facility]* Diagnosis History of prosthetic aortic [...] of cerebral infarction [facility] Right renal mass Unspecified disorder of kidney and ureter [facility] Diagnosis Paroxysmal atrial fibrillation (HCC) Atrial fibrillation Presence of Watchman left atrial appendage closure device [facility] Hospital discharge follow-up- Primary [...] blood loss (chronic) [facility] Diagnosis 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 Other specified intestinal malabsorption [facility] Diagnosis 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 Neoplasm of uncertain behavior of kidney and ureter Iron 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) Stage 3b chronic kidney disease (HCC) [facility] Iron deficiency anemia secondary [...] specified intestinal malabsorption [facility] this encounter [facility]* Diagnosis Iron 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- Primary Chronic renal failure, stage 3b (HCC) documented [facility] this encounter [facility]* Diagnosis Primary hypertension Unspecified essential hypertension documented [facility] this encounter [facility]* Diagnosis H/O rheumatic heart disease- [...] vascular disease, unspecified documented [facility] this encounter [facility]* Diagnosis Lung nodule, solitary- Primary Solitary pulmonary nodule documented [facility] this encounter [facility]* Diagnosis Heme + stool Nonspecific abnormal finding in stool contents Epigastric pain Abdominal pain, epigastric Blood loss anemia Iron deficiency anemia secondary to blood loss (chronic) [facility] Diagnosis History of prosthetic aortic [...] diastolic heart failure SSS (sick sinus syndrome) ([facility]) Sinoatrial node dysfunction S/P placement of cardiac pacemaker Cardiac pacemaker in situ PAD (peripheral artery disease) ([facility]) Peripheral vascular disease, unspecified Hyperlipidemia with target LDL less than 70 Other and unspecified hyperlipidemia [facility] Diagnosis Primary hypertension Unspecified essential hypertension [facility] Diagnosis S/P placement of cardiac pacemaker- Primary Cardiac pacemaker in situ SSS (sick sinus syndrome) ([facility]) Sinoatrial node dysfunction Chronic combined systolic and [...] pulmonary nodule Chronic renal failure, stage 3b ([facility]) Gastroesophageal reflux disease without esophagitis Esophageal reflux [...] gangrene, without long-term current use of insulin ([facility]) [facility] Diagnosis Bilateral carotid artery stenosis- Primary Occlusion and stenosis of carotid artery without mention of cerebral infarction Atherosclerosis of [place] artery of both lower extremities with intermittent claudication (HCC) Atherosclerosis of [place] arteries of the extremities with intermittent claudication [...] Diagnosis PVD (peripheral vascular disease) with claudication ([facility])- Primary Peripheral vascular disease, unspecified documented in [...] systolic and diastolic CHF (congestive heart failure) ([facility])- Primary Chronic combined systolic and diastolic heart [...] vitamin D deficiency [facility] Diagnosis Borderline anemia- Primary Acute systolic congestive heart failure (HCC) Acute systolic heart failure [facility] Diagnosis Acute systolic CHF (congestive heart failure) ([facility])- Primary Acute systolic heart failure Rheumatic tricuspid valve regurgitation Diseases of tricuspid valve Diuresis excessive Polyuria Chronic combined systolic and diastolic CHF (congestive heart failure) ([facility]) Chronic combined systolic and diastolic heart failure Dilated cardiomyopathy (HCC) Other primary cardiomyopathies Longstanding persistent atrial fibrillation ([facility]) SSS (sick sinus syndrome) ([facility]) Sinoatrial node dysfunction S/P placement of cardiac pacemaker Cardiac pacemaker in situ Acute hip pain, right Piriformis syndrome, right Bilateral knee effusions Effusion of lower leg joint Primary osteoarthritis of both knees Primary localized osteoarthrosis, lower leg [facility] Diagnosis Acute HFrEF (heart failure with reduced ejection fraction) ([facility])- Primary VHD (valvular heart disease) Endocarditis, valve unspecified, unspecified cause Nonrheumatic tricuspid valve regurgitation Tricuspid valve disorders, specified as nonrheumatic Nonrheumatic mitral valve regurgitation Persistent atrial fibrillation ([facility]) Atrial fibrillation Pacemaker Cardiac pacemaker in situ [facility] Diagnosis Venous insufficiency- Primary Unspecified venous (peripheral) insufficiency [facility] Diagnosis Venous insufficiency- Primary Unspecified venous (peripheral) insufficiency [facility] Iron 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- Primary Iron malabsorption Other specified intestinal malabsorption [facility] Diagnosis Acute systolic CHF (congestive heart failure) ([facility])- Primary Acute systolic heart failure Hyponatremia Hyposmolality and/or hyponatremia Hypokalemia Hypopotassemia [facility] Diagnosis Chronic diastolic congestive heart failure (HCC)- Primary Chronic diastolic heart failure Primary hypertension Unspecified essential hypertension SSS (sick sinus syndrome) ([facility]) Sinoatrial node dysfunction Longstanding persistent atrial fibrillation (HCC) Acute systolic CHF (congestive heart failure) (HCC) Acute systolic heart failure documented in this encounter [facility] note* Diagnosis URI, acute- Primary Acute upper respiratory infections of unspecified site [facility] Diagnosis History of prosthetic aortic valve replacement- Primary Heart valve replaced by other means H/O rheumatic heart disease Personal history of other diseases of circulatory system Longstanding persistent atrial fibrillation (HCC) Ascending aorta dilatation (HCC) Thoracic aortic ectasia Dilated cardiomyopathy (HCC) Other primary cardiomyopathies Aortic prosthetic valve regurgitation, subsequent encounter Chronic diastolic (congestive) heart failure (HCC) SSS (sick sinus syndrome) ([facility]) Sinoatrial node dysfunction Primary hypertension Unspecified essential hypertension Hyperlipidemia with target LDL less than 70 Other and unspecified hyperlipidemia S/P placement of cardiac pacemaker Cardiac pacemaker in situ PAD (peripheral artery disease) ([facility]) Peripheral vascular disease, unspecified Acute systolic CHF (congestive heart failure) (HCC) Acute systolic heart failure [facility] Diagnosis Chronic diastolic congestive heart failure (HCC)- Primary Chronic diastolic heart failure [facility] Diagnosis Chronic kidney disease, unspecified CKD stage- Primary [facility]* Diagnosis SOB (shortness of breath)- [...] Coronary atherosclerosis of unspecified type of vessel, [place] or graft SUMMARY Hyperlipidemia LDL goal < [...] systolic heart failure [facility]* Diagnosis SOB (shortness of breath)- [...] Coronary atherosclerosis of unspecified type of vessel, [place] or graft SUMMARY Hyperlipidemia LDL goal < [...] healing, subsequent encounter [facility] Diagnosis SOB (shortness of breath)- [...] Coronary atherosclerosis of unspecified type of vessel, [place] or graft SUMMARY Hyperlipidemia LDL goal < [...] of cerebral infarction PAD (peripheral artery disease) ([facility]) Peripheral vascular disease, unspecified Type 2 diabetes mellitus without complication, without long-term current use of insulin (HCC) Gastroesophageal reflux disease without esophagitis Esophageal reflux Other persistent atrial fibrillation ([facility]) Ascending aorta dilatation (HCC) Thoracic aortic ectasia [...] type, unspecified whether acute cor pulmonale present ([facility]) Gastrointestinal hemorrhage, unspecified gastrointestinal hemorrhage type Iron deficiency anemia, unspecified iron deficiency anemia type Paroxysmal atrial fibrillation (HCC) Atrial fibrillation Stage 3 chronic renal impairment associated with type 2 diabetes mellitus (HCC) Type II or unspecified type diabetes mellitus with renal manifestations, not stated as uncontrolled Pain of right middle finger [facility] Diagnosis SOB (shortness of breath)- Primary [...] Coronary atherosclerosis of unspecified type of vessel, [place] or graft SUMMARY Hyperlipidemia LDL goal < [...] of left side [facility] Diagnosis SOB (shortness of breath)- [...] Coronary atherosclerosis of unspecified type of vessel, [place] or graft SUMMARY Hyperlipidemia LDL goal < [...] Sinoatrial node dysfunction Longstanding persistent atrial fibrillation ([facility]) documented in this encounter [facility] note* Diagnosis SOB (shortness of breath)- Primary [...] Coronary atherosclerosis of unspecified type of vessel, [place] or graft SUMMARY Hyperlipidemia LDL goal < [...] Other follow-up examination [facility] Diagnosis SOB (shortness of breath)- [...] Coronary atherosclerosis of unspecified type of vessel, [place] or graft SUMMARY Hyperlipidemia LDL goal < [...] fibrillation (HCC) Stage 3b chronic kidney disease ([facility]) [facility] Diagnosis SOB (shortness of breath)- [...] Coronary atherosclerosis of unspecified type of vessel, [place] or graft SUMMARY Hyperlipidemia LDL goal < [...] of cerebral infarction [facility] Diagnosis SOB (shortness of breath)- Primary [...] Coronary atherosclerosis of unspecified type of vessel, [place] or graft SUMMARY Hyperlipidemia LDL goal < [...] diastolic heart failure [facility] Diagnosis SOB (shortness of breath)- [...] Coronary atherosclerosis of unspecified type of vessel, [place] or graft SUMMARY Hyperlipidemia LDL goal < [...] insufficiency of intestine [facility] Diagnosis SOB (shortness of breath)- Primary [...] Coronary atherosclerosis of unspecified type of vessel, [place] or graft SUMMARY Hyperlipidemia LDL goal < [...] atrial fibrillation (HCC) [facility] Diagnosis SOB (shortness of breath)- Primary [...] Coronary atherosclerosis of unspecified type of vessel, [place] or graft SUMMARY Hyperlipidemia LDL goal < [...] Coronary atherosclerosis of unspecified type of vessel, [place] or graft SUMMARY Hyperlipidemia LDL goal < [...] and unspecified hyperlipidemia documented in this encounter [facility] for referral (narrative)* Diagnostic Procedure Only (Routine) - Closed Specialty Diagnoses / Procedures Referred By Leilani ng Referred To Contact XR IMAGING Diagnoses Ischial bursitis of left side Procedures XR HIP GENERAL 3V PELV/AP/LAT LEFT RADEX HIP UNILATERAL WITH PELVIS 2-3 VIEWS Doreen Le PA-C [address] [place] [address] Xr Imaging Referral ID Status Reason Start Date Expiration Date V isits Requested Visits Authorized [id number] Closed Auto-Generate d Referral 12/15/2021 01/14/2023 1 1 [facility] for referral (narrative)* Outpatient Procedure (Routine) - Pending Review Specialty Diagnoses / Procedures Referred By Leilani ng Referred To Contact [facility] Diagnoses Acute blood loss anemia Heme + stool Epigastric pain Procedures EGD DIAGNOSTIC ESOPHAGOGASTRODUODENOSC OPY TRANSORAL DIAGNOSTIC REFERRAL TO [facility] FINANCIAL COUNSELOR Chai Encinas MD [address] [place] [place] [address] [facility] [place] [address] [place] [id number] Referral ID Status Reason Start Date Expiration Date Visits Requested Visits Authorized [id number] Pending Review Auto-Generated Referral 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 OON Notification Letter Patient Cleared - Admin/Tong Setter/D irector advise to proceed 04/01/2022 1 1 [facility] for referral (narrative)* Outpatient Procedure (Routine) - Closed Specialty Diagnoses / Procedures Referred By Leilani ng Referred To Contact Diagnoses Acute blood loss anemia Heme + stool Epigastric pain Procedures EGD DIAGNOSTIC ESOPHAGOGASTRODUODENOSCOPY TRANSORAL DIAGNOSTIC REFERRAL TO [facility] FINANCIAL COUNSELOR Chai Encinas MD [facility] [address] [facility] [address] [facility] [place] [address] [place] [address] Referral ID Status Reason Start Date Expiration Date Visits Requested Visits Authorized [id number] Closed Auto-Generated Referral 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 OON Notification Letter Patient Cleared - Admin/Tong Setter/D irector advise to proceed 01/01/2022 07/04/2022 1 1 [facility] for referral (narrative)* Outpatient Procedure (Routine) - Pending Review Specialty Diagnoses / Procedures Referred By Leilani ng Referred To [facility] Diagnoses Paroxysmal atrial fibrillation (HCC) Procedures ECHO TRANSESOPHAGEAL ECHO TRANSESOPHAG R-T 2D W/PRB IMG LINUS I&R Candi Beauchamp, THERAPEUTIC DIETITIAN.MANPOWER DEVELOPMENT SPECIALIST MANAGER [address] [place] [address] [facility] [place] [address] [place] [address] Referral ID Status Reason Start Date Expiration Date Visits Requested Visits Authorized [id number] Pending Review Auto-Generat ed Referral 01/21/2022 01/21/2023 1 1 * Outpatient Procedure (Routine) - Pending Review Specialty Diagnoses / Procedures Referred By Contac t Referred To Contact [facility] Diagnoses Paroxysmal atrial fibrillation (HCC) Procedures ECG COMPLETE ECG ROUTINE ECG W/LEAST 12 LDS W/I&R Candi Beauchamp APRN.CNP [address] [facility] [place] [address] [facility] [place] [address] [place] [phone] Referral ID Status Reason Start Date Expiration Date Visits Requested Visits Authorized [id number] Pending Review Auto-Generat ed Referral 01/21/2022 01/21/2023 1 1 * Outpatient Procedure (Routine) - Pending Review Specialty Diagnoses / Procedures Referred By Contac t Referred To Contact [facility] Diagnoses Paroxysmal atrial fibrillation (HCC) Procedures ECHO TRANSESOPHAGEAL ECHO TRANSESOPHAG R-T 2D W/PRB IMG ACQUISGlenna I&R Candi Beauchamp APRN.MANPOWER DEVELOPMENT SPECIALIST MANAGER [address] [email or web address] [facility] [place] [phone] [facility] [place] [address] [place] [phone] Referral ID Status Reason Start Date Expiration Date Visits Requested Visits Authorized [id number] Pending Review Auto-Generat ed Referral 01/21/2022 01/21/2023 1 1 [facility] for referral (narrative)* Outpatient Procedure (Routine) - Pending Review Specialty Diagnoses / Procedures Referred By Contac t Referred To Contact [facility] Diagnoses Paroxysmal atrial fibrillation (HCC) Presence of Watchman left atrial appendage closure device Procedures ECHO TRANSESOPHAGEAL ECHO TRANSESOPHAG R-T 2D W/PRB IMG ACQUISGlenna I&R Candi Beauchamp APRN.CNP [address] [email or web address] VERONICA [facility] [place] [address] [facility] [place] [address] PETERSONKarina [place] [phone] Referral ID Status Reason Start Date Expiration Date Visits Requested Visits Authorized [id number] Pending Review Auto-Generat ed Referral 02/09/2022 02/09/2023 1 1 * Outpatient Procedure (Routine) - Pending Review Specialty Diagnoses / Procedures Referred By Contac t Referred To Contact [facility] Diagnoses Paroxysmal atrial fibrillation (HCC) Presence of Watchman left atrial appendage closure device Procedures ECG COMPLETE ECG ROUTINE ECG W/LEAST 12 LDS W/I&R Candi Beauchamp APRN.MANPOWER DEVELOPMENT SPECIALIST MANAGER [address], [address] [place] [phone] [facility] [address] [place] [place] [phone] Referral ID Status Reason Start Date Expiration Date Visits Requested Visits Authorized [id number] Pending Review Auto-Generat ed Referral 02/09/2022 02/09/2023 1 1 * Outpatient Procedure (Routine) - Pending Review Specialty Diagnoses / Procedures Referred By Contac t Referred To Contact [facility] Diagnoses Paroxysmal atrial fibrillation (HCC) Presence of Watchman left atrial appendage closure device Procedures ECHO TRANSESOPHAGEAL ECHO TRANSESOPHAG R-T 2D W/PRB IMG ACQUISJ I&R Candi Beauchamp APRN.MANPOWER DEVELOPMENT SPECIALIST MANAGER [address], [address] [place] [phone] [facility] [address] [place] [phone] Referral ID Status Reason Start Date Expiration Date Visits Requested Visits Authorized [id number] Pending Review Auto-Generat ed Referral 02/09/2022 02/09/2023 1 1 [facility] for referral (narrative)* Outpatient Procedure (Routine) - Pending Review Specialty Diagnoses / Procedures Referred By Contac t Referred To Contact [facility] Diagnoses Longstanding persistent atrial fibrillation (HCC) Presence of Watchman left atrial appendage closure device Procedures ECHO TRANSESOPHAGEAL ECHO TRANSESOPHAG R-T 2D W/PRB IMG ACQUNYDIA I&Radha Sherman APRN.CNP [address] [place] [address] [place] [address] [place] [address] Referral ID Status Reason Start Date Expiration Date Visits Requested Visits Authorized [id number] Pending Review Auto-Generat ed Referral 03/04/2022 03/04/2023 1 1 [facility] for referral (narrative)* Outpatient Procedure (Routine) - Authorized Specialty Diagnoses / Procedures Referred By Leilani ng Referred To Contact [facility] Diagnoses Aortic prosthetic valve regurgitation, 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) Procedures ECG COMPLETE ECG ROUTINE ECG W/LEAST 12 LDS W/I&R Doreen Le PA-C [address] [place] [address] [address] Referral ID Status Reason Start Date Expiration Date Visits Requested Visits Authorized [id number] Authorized Auto-Generat ed Referral 03/19/2022 03/19/2023 1 1 [facility] for referral (narrative)* Diagnostic Procedure Only (Routine) - Authorized Specialty Diagnoses / Procedures Referred By Leilani ng Referred To Contact US IMAGING Diagnoses Neoplasm of uncertain behavior of right kidney Procedures US KIDNEY/BLADDER US RETROPERITONEAL REAL TIME W/IMAGE COMPLETE Brayan Chicas MD [address] [place] [address] Us Imaging Referral ID Status Reason Start Date Expiration Date Visits Requested Visits Authorized [id number] Authorized Auto-Generat ed Referral 09/02/2022 05/09/2023 1 1 [facility] for referral (narrative)* Outpatient Procedure (Routine) - Authorized Specialty Diagnoses / Procedures Referred By Contac t Referred To Contact [facility] Diagnoses History of prosthetic aortic valve replacement H/O rheumatic heart disease Procedures ECHO ECHO TTHRC R-T 2D W/WOM-MODE COMPL SPEC&COLR Carla Soliz MD [address] [place] [address] [place] [address] Referral ID Status Reason Start Date Expiration Date Visits Requested Visits Authorized [id number] Authorized Auto-Generat ed Referral 03/05/2023 09/28/2023 1 1 [facility] for referral (narrative)* Outpatient Procedure (Routine) - Pending Review Specialty Diagnoses / Procedures Referred By Contac t Referred To [facility] Diagnoses 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HCC) Pain in both lower legs Atherosclerosis of [place] artery of both lower extremities with intermittent claudication (HCC) Procedures PVR LEG [facility] NON-INVASIVE PHYSIOLOGIC STUDY EXTREMITY 3 LEVLS Doreen Le PA-C [address] [place] [address] [facility] [address] [address] Referral ID Status Reason Start Date Expiration Date Visits Requested Visits Authorized [id number] Pending Review Auto-Generat ed Referral 01/07/2023 01/07/2024 1 1 * Outpatient Procedure (Routine) - Pending Review Specialty Diagnoses / Procedures Referred By Contac t Referred To [facility] Diagnoses 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HCC) Pain in both lower legs Atherosclerosis of [place] artery of both lower extremities with intermittent claudication (HCC) Procedures PVR ANK PRESS [facility] NON-INVAS PHYSIOLOGIC STD EXTREMITY ART 2 LEVEL Doreen Le PA-C [address] [place] [address] [facility] [address] [address] Referral ID Status Reason Start Date Expiration Date Visits Requested Visits Authorized [id number] Pending Review Auto-Generat ed Referral 01/07/2023 01/07/2024 1 1 * Outpatient Procedure (Routine) - Authorized Specialty Diagnoses / Procedures Referred By Contac t Referred To Contact [facility] Diagnoses Bilateral carotid artery stenosis Procedures US CAROTID ARTERIES [facility] DUPLEX SCAN EXTRACRANIAL ART COMPL BI STUDY Doreen Le PA-C [address] [place] [address] [facility] [place] [address] [place] [address] Referral ID Status Reason Start Date Expiration Date Visits Requested Visits Authorized [id number] Authorized Auto-Generat ed Referral 01/07/2023 01/07/2024 1 1 [facility] for referral (narrative)* Diagnostic Procedure Only (Routine) - Closed Specialty Diagnoses / Procedures Referred By Contac t Referred To Contact US IMAGING Diagnoses Neoplasm of uncertain behavior of right kidney Procedures US KIDNEY/BLADDER US RETROPERITONEAL REAL TIME W/IMAGE COMPLETE Brayan Chicas MD [address] [place] [address] [place] [address] Referral ID Status Reason Start Date Expiration Date V isits Requested Visits Authorized [id number] Closed Auto-Generate d Referral 09/02/2022 05/09/2023 1 1 [facility] for referral (narrative)* Outpatient Procedure (Routine) - Authorized Specialty Diagnoses / Procedures Referred By Contac t Referred To Contact [facility] Diagnoses Acute systolic CHF (congestive heart failure) (HCC) Procedures ECHO ECHO TTHRC R-T 2D W/WOM-MODE COMPL SPEC&COLR D Doreen Le PA-C [address] [place] [address] [facility] [address] [address] Referral ID Status Reason Start Date Expiration Date Visits Requested Visits Authorized [id number] Authorized Auto-Generat ed Referral 10/18/2023 10/17/2024 1 1 * Outpatient Procedure (Routine) - Pending Review Specialty Diagnoses / Procedures Referred By Contac t Referred To Contact [facility] Diagnoses Acute systolic CHF (congestive heart failure) (HCC) Procedures ECG COMPLETE ECG ROUTINE ECG W/LEAST 12 LDS W/I&R Doreen Le PA-C [address] [place] [address] [address] Referral ID Status Reason Start Date Expiration Date Visits Requested Visits Authorized [id number] Pending Review Auto-Generat ed Referral 10/18/2023 10/17/2024 1 1 [facility] for referral (narrative)* Outpatient Procedure (Routine) - Closed Specialty Diagnoses / Procedures Referred By Contac t Referred To Contact [facility] Diagnoses Venous insufficiency Procedures US LEG VEIN DVT [facility] DUP-SCAN XTR VEINS COMPLETE BILATERAL STUDY Lars Silva DO [address] [place], [place] [address] [place] [address] Referral ID Status Reason Start Date Expiration Date V isits Requested Visits Authorized [id number] Closed Auto-Generate d Referral 10/14/2023 10/13/2024 1 1 [facility] for referral (narrative)* Diagnostic Procedure Only (Routine) - Closed Specialty Diagnoses / Procedures Referred By Contac t Referred To Contact XR IMAGING Diagnoses Closed nondisplaced fracture of fifth metatarsal bone of right foot with routine healing, subsequent encounter Procedures XR FOOT GENERAL 3V AP/LAT/OBL RIGHT RADEX FOOT COMPLETE MINIMUM 3 VIEWS Doreen Le PA-C [address] [place] [address] [place] [address] Referral ID Status Reason Start Date Expiration Date V isits Requested Visits Authorized [id number] Closed Auto-Generate d Referral 06/01/2023 06/30/2024 1 1 [facility] for referral (narrative)* Diagnostic Procedure Only (Routine) - Closed Specialty Diagnoses / Procedures Referred By Contac t Referred To Contact XR IMAGING Diagnoses Pain of right middle finger Procedures XR DIGIT GENERAL 3V FRONTAL/LAT/OBL RIGHT RADEX FINGR MINIMUM 2 VIEWS Doreen Le PA-C [address] [place] [address] [place] [address] Referral ID Status Reason Start Date Expiration Date V isits Requested Visits Authorized [id number] Closed Auto-Generate d Referral 04/12/2023 05/11/2024 1 1 T [facility] for referral (narrative)* Diagnostic Procedure Only (Routine) - Closed Specialty Diagnoses / Procedures Referred By Contac t Referred To Contact XR IMAGING Diagnoses Ischial bursitis of left side Procedures XR HIP GENERAL 3V PELV/AP/LAT LEFT RADEX HIP UNILATERAL WITH PELVIS 2-3 VIEWS Doreen Le PA-C [address] [place] [address] [place] [address] Referral ID Status Reason Start Date Expiration Date V isits Requested Visits Authorized [id number] Closed Auto-Generate d Referral 12/15/2021 01/14/2023 1 1 [facility] for visit Narrative* Outpatient Procedure (Routine) - Closed Specialty Diagnoses / Procedures Referred By Contac t Referred To Contact Diagnoses Acute blood loss anemia Heme + stool Epigastric pain Procedures EGD DIAGNOSTIC ESOPHAGOGASTRODUODENOSCOPY TRANSORAL DIAGNOSTIC REFERRAL TO [facility]CIAL COUNSEL[facility] Chai Encinas MD [address] [place] [address] [facility] [place] [address] [place] [address] Referral ID Status Reason Start Date Expiration Date Visits Requested Visits Authorized [id number] Closed Auto-Generated Referral 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 OON Notification Letter Patient Cleared - Admin/Tong Setter/D irector advise to proceed 01/01/2022 07/04/2022 1 1 [facility] for visit Narrative* Diagnostic Procedure Only (Routine) - Closed Specialty Diagnoses / Procedures Referred By Leilani ng Referred To Contact Laboratory Medicine / LAB COVID TESTING LL Lot Diagnoses Paroxysmal atrial fibrillation PRE-PROCEDURE & PRE-OPERATIVE COVID Paroxysmal atrial fibrillation (HCC) [I48.0] Procedures COVID19 LAB COVID Chandler Swan MD [address] [place] [address] [place] [id number] [facility] [place] [address] Referral ID Status Reason Start Date Expiration Date Visits Re quested Visits Authorized [id number] Closed 01/09/2022 07/04/2022 1 1 [facility] for visit Narrative* Diagnostic Procedure Only (Routine) - Closed Specialty Diagnoses / Procedures Referred By Leilani ng Referred To Contact [facility] Diagnoses Paroxysmal atrial fibrillation (HCC) Presence of Watchman left atrial appendage closure device Procedures ECHO TRANSESOPHAGEAL ECHO TRANSESOPHAG R-T 2D W/PRB IMG LINUS I&R Candi Beauchamp, THERAPEUTIC DIETITIAN.MANPOWER DEVELOPMENT SPECIALIST MANAGER [address] [place] [address] [facility] [place] [address] [place] [address] Referral ID Status Reason Start Date Expiration Date V isits Requested Visits Authorized [id number] Closed Auto-Generate d Referral 02/09/2022 07/04/2022 1 1 [facility] for visit Narrative* Diagnostic Procedure Only (Routine) - Closed Specialty Diagnoses / Procedures Referred By Leilani ng Referred To Contact XR IMAGING Diagnoses Closed nondisplaced fracture of fifth metatarsal bone of right foot with routine healing, subsequent encounter Procedures XR FOOT GENERAL 3V AP/LAT/OBL RIGHT RADEX FOOT COMPLETE MINIMUM 3 VIEWS Doreen Le PA-C [address] [place] [address] [place] [address] Referral ID Status Reason Start Date Expiration Date V isits Requested Visits Authorized [id number] Closed Auto-Generate d Referral 06/01/2023 06/30/2024 1 1 [facility] for visit Narrative* Diagnostic Procedure Only (Routine) - Closed Specialty Diagnoses / Procedures Referred By Contac t Referred To Contact XR IMAGING Diagnoses Pain of right middle finger Procedures XR DIGIT GENERAL 3V FRONTAL/LAT/OBL RIGHT RADEX FINGR MINIMUM 2 VIEWS Doreen Le PA-C [address] [place] [address] [place] [address] Referral ID Status Reason Start Date Expiration Date V isits Requested Visits Authorized [id number] Closed Auto-Generate d Referral 04/12/2023 05/11/2024 1 1 [facility] for visit Narrative* Diagnostic Procedure Only (Routine) - Closed Specialty Diagnoses / Procedures Referred By Contac t Referred To Contact XR IMAGING Diagnoses Ischial bursitis of left side Procedures XR HIP GENERAL 3V PELV/AP/LAT LEFT RADEX HIP UNILATERAL WITH PELVIS 2-3 VIEWS Doreen Le PA-C [address] [place] [address] [place] [address] Referral ID Status Reason Start Date Expiration Date V isits Requested Visits Authorized [id number] Closed Auto-Generate d Referral 12/15/2021 01/14/2023 1 1 [facility] Summary Purpose Family History No Family History [...] Documents on File Type Date Recorded Patient Junior Buyer Expl anation Advance Directive(s) 02/26/2021 11:31 AM Advance Directive(s) 10/02/2020 4:46 PM Advance Directive(s) 10/24/2019 6:40 PM Advance Directive(s) 07/18/2019 8:41 AM Advance Directive(s) 06/21/2019 9:34 AM Advance Directive(s) 05/04/2019 8:22 AM Advance Directive(s) 03/22/2019 7:15 AM Advance Directive(s) 08/31/2015 1:42 PM Advance Directive(s) 08/20/2015 4:21 PM Documents on File Type Date Recorded Patient Junior Buyer Expl anation Advance Directive(s) 02/26/2021 11:31 AM Advance Directive(s) 10/02/2020 4:46 PM Advance Directive(s) 10/24/2019 6:40 PM Advance Directive(s) 07/18/2019 8:41 AM Advance Directive(s) 06/21/2019 9:34 AM Advance Directive(s) 05/04/2019 8:22 AM Advance Directive(s) 03/22/2019 7:15 AM Advance Directive(s) 08/31/2015 1:42 PM Advance Directive(s) 08/20/2015 4:21 PM Documents on File Type Date Recorded Patient Junior Buyer Expl anation Advance Directive(s) 12/23/2021 1:13 PM Advance Directive(s) 02/26/2021 11:31 AM Advance Directive(s) 10/02/2020 4:46 PM Advance Directive(s) 10/24/2019 6:40 PM Advance Directive(s) 07/18/2019 8:41 AM Advance Directive(s) 06/21/2019 9:34 AM Advance Directive(s) 05/04/2019 8:22 AM Advance Directive(s) 03/22/2019 7:15 AM Advance Directive(s) 08/31/2015 1:42 PM Advance Directive(s) 08/20/2015 4:21 PM Documents on File Type Date Recorded Patient Junior Buyer Expl anation Advance Directive(s) 12/23/2021 1:13 PM Advance Directive(s) 02/26/2021 11:31 AM Advance Directive(s) 10/02/2020 4:46 PM Advance Directive(s) 10/24/2019 6:40 PM Advance Directive(s) 07/18/2019 8:41 AM Advance Directive(s) 06/21/2019 9:34 AM Advance Directive(s) 05/04/2019 8:22 AM Advance Directive(s) 03/22/2019 7:15 AM Advance Directive(s) 08/31/2015 1:42 PM Advance Directive(s) 08/20/2015 4:21 PM Documents on File Type Date Recorded Patient Junior Buyer Expl anation Advance Directive(s) 01/02/2022 8:28 AM [...] Will No February 13 6:44pm Power of Adjunct Faculty Instructor No February 13 021 6:44pm Documents on File Type Date Recorded Patient Junior Buyer Expl anation Advance Directive(s) 01/02/2022 8:28 AM [...] atrial fibrillation. Previously seen by me at [facility]. At that time she had paroxysmal [...] file Gets together: Not on file Attends restorationism service: Not on file Active member of [...] with tissue valve Moderate mitral regurgitation Other [facility] current use of antiarrhythmic medical therapy Assessment [...] back to sinus rhythm. Dr. Washington at [facility] contacted. 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 medical therapy Moderate mitral regurgitation Mitral valve disorders Status post aortic valve replacement with tissue valve Heart valve replaced by other means Medications Administered Section Inactive Administered Medications - up to 3 most recent administrations Medication Order MAR Action Action Date Dose Rate Site benzocaine 20% 4 [place] (TOPEX) 4 [place], TOPICAL, ONCE, 1 dose, On Wed01/02/22 at [...] TOMOGRAPHY THORAX W/O CNTRST Doreen Le PA-C [address] [place] [address] Ct Imaging Referral ID Status Reason Start Date Expiration Date Visits Requested Visits Authorized [id number] Pending Review Auto-Generat ed Referral 07/07/2022 05/06/2023 1 1 Specialty Diagnoses / Procedures Referred By Contac t Referred To Contact Hematology Diagnoses Iron deficiency anemia due to chronic blood loss Procedures CONSULT TO HEMATOLOGY OFFICE/OUTPATIENT [facility] MDM 60-74 MINUTES Doreen Le PA-C [address] [place] [address] Referral ID Status Reason Start Date Expiration Date Visits Requested Visits Authorized [id number] Pending Review PCP Requested Referral 04/06/2022 04/06/2023 1 1 Specialty Diagnoses / Procedures Referred By Contac t Referred To Contact MR IMAGING Diagnoses 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 Procedures MRA BRAIN WO/W IVCON MRA; HEAD W & WO CONTRAST Doreen Le PA-C [address] [place] [address] Mr Imaging Referral ID Status Reason Start Date Expiration Date Visits Requested Visits Authorized [id number] Pending Review Auto-Generat ed Referral 07/07/2022 08/06/2023 1 1 Specialty Diagnoses / Procedures Referred By Contac t Referred To Contact Vascular Surgery Diagnoses PVD (peripheral vascular disease) with claudication (HCC) Procedures CONSULT TO VASCULAR SURGERY OFFICE/OUTPATIENT [facility] MDM 60-74 MINUTES Doreen Le PA-C [address] [place] [address] Referral ID Status Reason Start Date Expiration Date Visits Requested Visits Authorized [id number] Pending Review PCP Requested Referral 01/28/2023 01/28/2024 1 1 Specialty Diagnoses / Procedures Referred By Contac t Referred To Contact CT IMAGING Diagnoses Lung nodule, solitary Procedures CT CHEST WO IVCON DIAGNOSTIC COMPUTED TOMOGRAPHY THORAX W/O CNTRST Doreen Le PA-C [address] [place] [address] [place] [address] Referral ID Status Reason Start Date Expiration Date V isits Requested Visits Authorized [id number] Closed Auto-Generate d Referral 07/07/2022 05/06/2023 1 1 Specialty Diagnoses / Procedures Referred By Contac t Referred To Contact Hematology Diagnoses 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 Procedures CONSULT TO HEMATOLOGY OFFICE/OUTPATIENT [facility] 60 MINUTES Doreen Le PA-C [address] [place] [address] Referral ID Status Reason Start Date Expiration Date Visits Requested Visits Authorized [id number] Authorized PCP Requested Referral 11/15/2023 11/14/2024 1 1 Additional Source Comments INFORMATION SOURCE (unrecogn ized section and content) DATE CREATED AUTHOR 12/22/2017 [facility] DATE CREATED AUTHOR AUTHOR'S ORGANIZ ATION 03/09/2019 [facility] DATE CREATED AUTHOR AUTHOR'S ORGANIZ ATION 02/21/2021 [facility] DATE CREATED AUTHOR AUTHOR'S ORGANIZ ATION 11/09/2023 [facility] DATE CREATED AUTHOR AUTHOR'S ORGANIZ ATION 02/09/2024 [facility] DATE CREATED AUTHOR AUTHOR'S ORGANIZ ATION 03/01/2024 [facility] DATE CREATED AUTHOR AUTHOR'S ORGANIZ ATION 12/27/2024 [facility] DATE CREATED AUTHOR AUTHOR'S ORGANIZ ATION 01/02/2025 [facility] Reason for Visit (unrecogniz ed section and content) Reason Comments Non-Chemotherapy Treatment Specialty Diagnoses / Procedures Referred By Contac t Referred To Contact Diagnoses 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 Procedures IRON SUCROSE INJECTION PER 1 MG Ralph Mujica DO [address] [place] [address] [facility] [address] [place] [address] Referral ID Status Reason Start Date Expiration Date V isits Requested Visits Authorized [id number] Authorized 04/07/2022 07/04/2022 99 99 Reason Comments Follow Up Specialty Diagnoses / Procedures Referred By Leilani ng Referred To Contact Cardiology / CARD ADMIN [facility] Diagnoses Follow-up examination 6 month follow up Procedures OFFICE/OUTPATIENT ESTABLISHED MOD MDM 30-39 MIN EST PATIENT Carla Burdick MD [address] [place] [address] Carla Burdick MD [address] [place] [address] Referral ID Status Reason Start Date Expiration Date Visits Re quested Visits Authorized [id number] Closed 03/30/2022 07/04/2022 1 1 Reason Comments [...] MINUTES NEW DDI PATIENT Doreen Le PA-C [address] [place] [address] Chai Encinas MD [address] [place] [address] Referral ID Status Reason Start Date Expiration Date V isits Requested Visits Authorized [id number] 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 [...] Procedures 4C EST Self, Doreen Jackson, PA-C [address] [place] [address] Referral ID Status Reason Start Date Expiration Date Visits Re quested Visits Authorized [id number] Closed 01/16/2022 07/04/2022 1 1 Reason Onset Date Comments Refill Request 01/19/2022 Reason Comments Patient Question ORDER FOR ABDIEL AND EC G Reason Comments Diarrhea " A few weeks" Specialty Diagnoses / Procedures Referred By Contac t Referred To Contact Family Practice / FAMILY MEDICINE Diagnoses Chronic diarrhea Procedures MYC OFFICE VISIT Self, Doreen Jackson, PA-C [address] [place] [address] Referral ID Status Reason Start Date Expiration Date Visits Re quested Visits Authorized [id number] Closed 02/20/2022 07/04/2022 1 1 Reason Comments Procedure Follow Up EGD completed on 01/02 Reason Onset Date Comments Transition Of Care 02/25/2022 [facility] D/C 02/24/2023 Reason Comments Reminder Call Transesophageal Echo 03/03/22 Specialty Diagnoses / Procedures Referred By Contact Referred To Contact Cardiology / CARDIOVASCULAR MEDICINE Diagnoses Paroxysmal atrial fibrillation Presence of Watchman left atrial appendage closure device Per [facility] Procedures REFERRAL TO [facility] FINANCIAL COUNSELOR EST CLINICIAN Chandler Swan MD [address] [place] [address] Radha Torres APRN.MANPOWER DEVELOPMENT SPECIALIST MANAGER [address] [place] [id number] Referral ID Status Reason Start Date Expiration Date Visits Requested Visits Authorized [id number] 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 [...] MYC OFFICE VISIT Self Doreen Le PA-C [address] [place] [address] Referral ID Status Reason Start Date Expiration Date Visits Re quested Visits Authorized [id number] Closed 03/03/2022 07/04/2022 1 1 Reason Onset Date Comments Transition Of Care 03/20/2022 [facility] readmissi on Reason Onset Date Comments Appointment 03/21/2022 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 Reason Comments Hospital Follow [...] TOMOGRAPHY THORAX W/O CNTRST Doreen Le PA-C [address] [place] [address] [place] [address] Referral ID Status Reason Start Date Expiration Date V isits Requested Visits Authorized [id number] Closed Auto-Generate d Referral 07/07/2022 05/06/2023 1 1 Reason Comments Radiology US Specialty Diagnoses / Procedures Referred By Contac t Referred To Contact US IMAGING Diagnoses Neoplasm of uncertain behavior of right kidney Procedures US KIDNEY/BLADDER US RETROPERITONEAL REAL TIME W/IMAGE COMPLETE Brayan Chicas MD [address] [place] [address] [place] [address] Referral ID Status Reason Start Date Expiration Date V isits Requested Visits Authorized [id number] Closed Auto-Generate d Referral 09/02/2022 05/09/2023 1 1 Reason Comments Cough Chest congestion x l ast night Reason Comments Patient Update Reason Comments Leg Edema Reason Comments Results Orders Reason Comments Follow Up 6 month Reason Comments Established Patient Reason Comments Initial Consult HEART FAILURE [address] Reason Comments Transition Of Care Reason Onset Date Comments ACM CECY RN 11/16/2023 E.D. Utilizat ion Review per Payer Request. Reason Comments Patient Question Reason Comments Hospital Follow Up [facility] follow up dc'd 11/12/23 dx: CHF Reason [...] Follow Up hospital follow up- CHF in [facility] for 23 days, discharged October 28 Reason [...] or prosecute any alcohol or drug abuse patient.[facility] the event this information is protected by the Federal Confidentiality of Alcohol and Drug Abuse Patient Records regulations: The Federal rules restrict any use of the information to criminally investigate or prosecute any alcohol or drug abuse patient.[facility] Hospital[facility] the event this information is protected by the Federal Confidentiality of Alcohol and Drug Abuse Patient Records regulations: The Federal rules restrict any use of the information to criminally investigate or prosecute any alcohol or drug abuse patient.[facility] Hospital[facility] the event this information is protected by the Federal Confidentiality of Alcohol and Drug Abuse Patient Records regulations: The Federal rules restrict any use of the information to criminally investigate or prosecute any alcohol or drug abuse patient.[facility] Hospital[facility] the event this information is protected by the Federal Confidentiality of Alcohol and Drug Abuse Patient Records regulations: The Federal rules restrict any use of the information to criminally investigate or prosecute any alcohol or drug abuse patient.[facility] HospitalIn the event this information is protected by the Federal Confidentiality of Alcohol and Drug Abuse Patient Records regulations: The Federal rules restrict any use of the information to criminally investigate or prosecute any alcohol or drug abuse patient.[facility] HospitalIn the event this information is protected by the Federal Confidentiality of Alcohol and Drug Abuse Patient Records regulations: The Federal rules restrict any use of the information to criminally investigate or prosecute any alcohol or drug abuse patient.[facility] HospitalIn the event this information is protected by the Federal Confidentiality of Alcohol and Drug Abuse Patient Records regulations: The Federal rules restrict any use of the information to criminally investigate or prosecute any alcohol or drug abuse patient.[facility] HospitalIn the event this information is protected by the Federal Confidentiality of Alcohol and Drug Abuse Patient Records regulations: The Federal rules restrict any use of the information to criminally investigate or prosecute any alcohol or drug abuse patient.[facility] HospitalIn the event this information is protected by the Federal Confidentiality of Alcohol and Drug Abuse Patient Records regulations: The Federal rules restrict any use of the information to criminally investigate or prosecute any alcohol or drug abuse patient.[facility] HospitalIn the event this information is protected by the Federal Confidentiality of Alcohol and Drug Abuse Patient Records regulations: The Federal rules restrict any use of the information to criminally investigate or prosecute any alcohol or drug abuse patient.[facility] HospitalIn the event this information is protected by the Federal Confidentiality of Alcohol and Drug Abuse Patient Records regulations: The Federal rules restrict any use of the information to criminally investigate or prosecute any alcohol or drug abuse patient.[facility] HospitalIn the event this information is protected by the Federal Confidentiality of Alcohol and Drug Abuse Patient Records regulations: The Federal rules restrict any use of the information to criminally investigate or prosecute any alcohol or drug abuse patient.[facility] HospitalIn the event this information is protected by the Federal Confidentiality of Alcohol and Drug Abuse Patient Records regulations: The Federal rules restrict any use of the information to criminally investigate or prosecute any alcohol or drug abuse patient.[facility] HospitalIn the event this information is protected by the Federal Confidentiality of Alcohol and Drug Abuse Patient Records regulations: The Federal rules restrict any use of the information to criminally investigate or prosecute any alcohol or drug abuse patient.[facility] HospitalIn the event this information is protected by the Federal Confidentiality of Alcohol and Drug Abuse Patient Records regulations: The Federal rules restrict any use of the information to criminally investigate or prosecute any alcohol or drug abuse patient.[facility] HospitalIn the event this information is protected by the Federal Confidentiality of Alcohol and Drug Abuse Patient Records regulations: The Federal rules restrict any use of the information to criminally investigate or prosecute any alcohol or drug abuse patient.[facility] HospitalIn the event this information is protected by the Federal Confidentiality of Alcohol and Drug Abuse Patient Records regulations: The Federal rules restrict any use of the information to criminally investigate or prosecute any alcohol or drug abuse patient.[facility] HospitalIn the event this information is protected by the Federal Confidentiality of Alcohol and Drug Abuse Patient Records regulations: The Federal rules restrict any use of the information to criminally investigate or prosecute any alcohol or drug abuse patient.[facility] HospitalIn the event this information is protected by the Federal Confidentiality of Alcohol and Drug Abuse Patient Records regulations: The Federal rules restrict any use of the information to criminally investigate or prosecute any alcohol or drug abuse patient.[facility] HospitalIn the event this information is protected by the Federal Confidentiality of Alcohol and Drug Abuse Patient Records regulations: The Federal rules restrict any use of the information to criminally investigate or prosecute any alcohol or drug abuse patient.[facility] HospitalIn the event this information is protected by the Federal Confidentiality of Alcohol and Drug Abuse Patient Records regulations: The Federal rules restrict any use of the information to criminally investigate or prosecute any alcohol or drug abuse patient.[facility] HospitalIn the event this information is protected by the Federal Confidentiality of Alcohol and Drug Abuse Patient Records regulations: The Federal rules restrict any use of the information to criminally investigate or prosecute any alcohol or drug abuse patient.[facility] HospitalIn the event this information is protected by the Federal Confidentiality of Alcohol and Drug Abuse Patient Records regulations: The Federal rules restrict any use of the information to criminally investigate or prosecute any alcohol or drug abuse patient.[facility] HospitalIn the event this information is protected by the Federal Confidentiality of Alcohol and Drug Abuse Patient Records regulations: The Federal rules restrict any use of the information to criminally investigate or prosecute any alcohol or drug abuse patient.[facility] HospitalIn the event this information is protected by the Federal Confidentiality of Alcohol and Drug Abuse Patient Records regulations: The Federal rules restrict any use of the information to criminally investigate or prosecute any alcohol or drug abuse patient.[facility] HospitalIn the event this information is protected by the Federal Confidentiality of Alcohol and Drug Abuse Patient Records regulations: The Federal rules restrict any use of the information to criminally investigate or prosecute any alcohol or drug abuse patient.[facility]In the event this information is protected by the Federal Confidentiality of Alcohol and Drug Abuse Patient Records regulations: The Federal rules restrict any use of the information to criminally investigate or prosecute any alcohol or drug abuse patient.[facility] HospitalIn the event this information is protected by the Federal Confidentiality of Alcohol and Drug Abuse Patient Records regulations: The Federal rules restrict any use of the information to criminally investigate or prosecute any alcohol or drug abuse patient.[facility] HospitalIn the event this information is protected by the Federal Confidentiality of Alcohol and Drug Abuse Patient Records regulations: The Federal rules restrict any use of the information to criminally investigate or prosecute any alcohol or drug abuse patient.[facility] HospitalIn the event this information is protected by the Federal Confidentiality of Alcohol and Drug Abuse Patient Records regulations: The Federal rules restrict any use of the information to criminally investigate or prosecute any alcohol or drug abuse patient.[facility] HospitalIn the event this information is protected by the Federal Confidentiality of Alcohol and Drug Abuse Patient Records regulations: The Federal rules restrict any use of the information to criminally investigate or prosecute any alcohol or drug abuse patient.[facility] HospitalIn the event this information is protected by the Federal Confidentiality of Alcohol and Drug Abuse Patient Records regulations: The Federal rules restrict any use of the information to criminally investigate or prosecute any alcohol or drug abuse patient.[facility] HospitalIn the event this information is protected by the Federal Confidentiality of Alcohol and Drug Abuse Patient Records regulations: The Federal rules restrict any use of the information to criminally investigate or prosecute any alcohol or drug abuse patient.[facility] HospitalIn the event this information is protected by the Federal Confidentiality of Alcohol and Drug Abuse Patient Records regulations: The Federal rules restrict any use of the information to criminally investigate or prosecute any alcohol or drug abuse patient.[facility] HospitalIn the event this information is protected by the Federal Confidentiality of Alcohol and Drug Abuse Patient Records regulations: The Federal rules restrict any use of the information to criminally investigate or prosecute any alcohol or drug abuse patient.[facility] HospitalIn the event this information is protected by the Federal Confidentiality of Alcohol and Drug Abuse Patient Records regulations: The Federal rules restrict any use of the information to criminally investigate or prosecute any alcohol or drug abuse patient.[facility] HospitalIn the event this information is protected by the Federal Confidentiality of Alcohol and Drug Abuse Patient Records regulations: The Federal rules restrict any use of the information to criminally investigate or prosecute any alcohol or drug abuse patient.[facility] HospitalIn the event this information is protected by the Federal Confidentiality of Alcohol and Drug Abuse Patient Records regulations: The Federal rules restrict any use of the information to criminally investigate or prosecute any alcohol or drug abuse patient.[facility] HospitalIn the event this information is protected by the Federal Confidentiality of Alcohol and Drug Abuse Patient Records regulations: The Federal rules restrict any use of the information to criminally investigate or prosecute any alcohol or drug abuse patient.[facility] HospitalIn the event this information is protected by the Federal Confidentiality of Alcohol and Drug Abuse Patient Records regulations: The Federal rules restrict any use of the information to criminally investigate or prosecute any alcohol or drug abuse patient.[facility] HospitalIn the event this information is protected by the Federal Confidentiality of Alcohol and Drug Abuse Patient Records regulations: The Federal rules restrict any use of the information to criminally investigate or prosecute any alcohol or drug abuse patient.[facility] HospitalIn the event this information is protected by the Federal Confidentiality of Alcohol and Drug Abuse Patient Records regulations: The Federal rules restrict any use of the information to criminally investigate or prosecute any alcohol or drug abuse patient.[facility] HospitalIn the event this information is protected by the Federal Confidentiality of Alcohol and Drug Abuse Patient Records regulations: The Federal rules restrict any use of the information to criminally investigate or prosecute any alcohol or drug abuse patient.[facility] HospitalIn the event this information is protected by the Federal Confidentiality of Alcohol and Drug Abuse Patient Records regulations: The Federal rules restrict any use of the information to criminally investigate or prosecute any alcohol or drug abuse patient.[facility] HospitalIn the event this information is protected by the Federal Confidentiality of Alcohol and Drug Abuse Patient Records regulations: The Federal rules restrict any use of the information to criminally investigate or prosecute any alcohol or drug abuse patient.[facility] HospitalIn the event this information is protected by the Federal Confidentiality of Alcohol and Drug Abuse Patient Records regulations: The Federal rules restrict any use of the information to criminally investigate or prosecute any alcohol or drug abuse patient.[facility] HospitalIn the event this information is protected by the Federal Confidentiality of Alcohol and Drug Abuse Patient Records regulations: The Federal rules restrict any use of the information to criminally investigate or prosecute any alcohol or drug abuse patient.[facility] HospitalIn the event this information is protected by the Federal Confidentiality of Alcohol and Drug Abuse Patient Records regulations: The Federal rules restrict any use of the information to criminally investigate or prosecute any alcohol or drug abuse patient.[facility] HospitalIn the event this information is protected by the Federal Confidentiality of Alcohol and Drug Abuse Patient Records regulations: The Federal rules restrict any use of the information to criminally investigate or prosecute any alcohol or drug abuse patient.[facility] HospitalIn the event this information is protected by the Federal Confidentiality of Alcohol and Drug Abuse Patient Records regulations: The Federal rules restrict any use of the information to criminally investigate or prosecute any alcohol or drug abuse patient.[facility] HospitalIn the event this information is protected by the Federal Confidentiality of Alcohol and Drug Abuse Patient Records regulations: The Federal rules restrict any use of the information to criminally investigate or prosecute any alcohol or drug abuse patient.[facility] HospitalIn the event this information is protected by the Federal Confidentiality of Alcohol and Drug Abuse Patient Records regulations: The Federal rules restrict any use of the information to criminally investigate or prosecute any alcohol or drug abuse patient.[facility] HospitalIn the event this information is protected by the Federal Confidentiality of Alcohol and Drug Abuse Patient Records regulations: The Federal rules restrict any use of the information to criminally investigate or prosecute any alcohol or drug abuse patient.[facility] HospitalIn the event this information is protected by the Federal Confidentiality of Alcohol and Drug Abuse Patient Records regulations: The Federal rules restrict any use of the information to criminally investigate or prosecute any alcohol or drug abuse patient.[facility] HospitalIn the event this information is protected by the Federal Confidentiality of Alcohol and Drug Abuse Patient Records regulations: The Federal rules restrict any use of the information to criminally investigate or prosecute any alcohol or drug abuse patient.[facility] HospitalIn the event this information is protected by the Federal Confidentiality of Alcohol and Drug Abuse Patient Records regulations: The Federal rules restrict any use of the information to criminally investigate or prosecute any alcohol or drug abuse patient.[facility] HospitalIn the event this information is protected by the Federal Confidentiality of Alcohol and Drug Abuse Patient Records regulations: The Federal rules restrict any use of the information to criminally investigate or prosecute any alcohol or drug abuse patient.[facility] HospitalIn the event this information is protected by the Federal Confidentiality of Alcohol and Drug Abuse Patient Records regulations: The Federal rules restrict any use of the information to criminally investigate or prosecute any alcohol or drug abuse patient.[facility] HospitalIn the event this information is protected by the Federal Confidentiality of Alcohol and Drug Abuse Patient Records regulations: The Federal rules restrict any use of the information to criminally investigate or prosecute any alcohol or drug abuse patient.[facility] HospitalIn the event this information is protected by the Federal Confidentiality of Alcohol and Drug Abuse Patient Records regulations: The Federal rules restrict any use of the information to criminally investigate or prosecute any alcohol or drug abuse patient.[facility] HospitalIn the event this information is protected by the Federal Confidentiality of Alcohol and Drug Abuse Patient Records regulations: The Federal rules restrict any use of the information to criminally investigate or prosecute any alcohol or drug abuse patient.[facility] HospitalIn the event this information is protected by the Federal Confidentiality of Alcohol and Drug Abuse Patient Records regulations: The Federal rules restrict any use of the information to criminally investigate or prosecute any alcohol or drug abuse patient.[facility] HospitalIn the event this information is protected by the Federal Confidentiality of Alcohol and Drug Abuse Patient Records regulations: The Federal rules restrict any use of the information to criminally investigate or prosecute any alcohol or drug abuse patient.[facility] HospitalIn the event this information is protected by the Federal Confidentiality of Alcohol and Drug Abuse Patient Records regulations: The Federal rules restrict any use of the information to criminally investigate or prosecute any alcohol or drug abuse patient.[facility] HospitalIn the event this information is protected by the Federal Confidentiality of Alcohol and Drug Abuse Patient Records regulations: The Federal rules restrict any use of the information to criminally investigate or prosecute any alcohol or drug abuse patient.[facility] HospitalIn the event this information is protected by the Federal Confidentiality of Alcohol and Drug Abuse Patient Records regulations: The Federal rules restrict any use of the information to criminally investigate or prosecute any alcohol or drug abuse patient.[facility] HospitalIn the event this information is protected by the Federal Confidentiality of Alcohol and Drug Abuse Patient Records regulations: The Federal rules restrict any use of the information to criminally investigate or prosecute any alcohol or drug abuse patient.[facility] HospitalIn the event this information is protected by the Federal Confidentiality of Alcohol and Drug Abuse Patient Records regulations: The Federal rules restrict any use of the information to criminally investigate or prosecute any alcohol or drug abuse patient.[facility] HospitalIn the event this information is protected by the Federal Confidentiality of Alcohol and Drug Abuse Patient Records regulations: The Federal rules restrict any use of the information to criminally investigate or prosecute any alcohol or drug abuse patient.[facility] HospitalIn the event this information is protected by the Federal Confidentiality of Alcohol and Drug Abuse Patient Records regulations: The Federal rules restrict any use of the information to criminally investigate or prosecute any alcohol or drug abuse patient.[facility] HospitalIn the event this information is protected by the Federal Confidentiality of Alcohol and Drug Abuse Patient Records regulations: The Federal rules restrict any use of the information to criminally investigate or prosecute any alcohol or drug abuse patient.[facility] HospitalIn the event this information is protected by the Federal Confidentiality of Alcohol and Drug Abuse Patient Records regulations: The Federal rules restrict any use of the information to criminally investigate or prosecute any alcohol or drug abuse patient.[facility] HospitalIn the event this information is protected by the Federal Confidentiality of Alcohol and Drug Abuse Patient Records regulations: The Federal rules restrict any use of the information to criminally investigate or prosecute any alcohol or drug abuse patient.[facility] HospitalIn the event this information is protected by the Federal Confidentiality of Alcohol and Drug Abuse Patient Records regulations: The Federal rules restrict any use of the information to criminally investigate or prosecute any alcohol or drug abuse patient.[facility] HospitalIn the event this information is protected by the Federal Confidentiality of Alcohol and Drug Abuse Patient Records regulations: The Federal rules restrict any use of the information to criminally investigate or prosecute any alcohol or drug abuse patient.[facility] HospitalIn the event this information is protected by the Federal Confidentiality of Alcohol and Drug Abuse Patient Records regulations: The Federal rules restrict any use of the information to criminally investigate or prosecute any alcohol or drug abuse patient.[facility] HospitalIn the event this information is protected by the Federal Confidentiality of Alcohol and Drug Abuse Patient Records regulations: The Federal rules restrict any use of the information to criminally investigate or prosecute any alcohol or drug abuse patient.[facility] HospitalIn the event this information is protected by the Federal Confidentiality of Alcohol and Drug Abuse Patient Records regulations: The Federal rules restrict any use of the information to criminally investigate or prosecute any alcohol or drug abuse patient.[facility] HospitalIn the event this information is protected by the Federal Confidentiality of Alcohol and Drug Abuse Patient Records regulations: The Federal rules restrict any use of the information to criminally investigate or prosecute any alcohol or drug abuse patient.[facility] HospitalIn the event this information is protected by the Federal Confidentiality of Alcohol and Drug Abuse Patient Records regulations: The Federal rules restrict any use of the information to criminally investigate or prosecute any alcohol or drug abuse patient.[facility] HospitalIn the event this information is protected by the Federal Confidentiality of Alcohol and Drug Abuse Patient Records regulations: The Federal rules restrict any use of the information to criminally investigate or prosecute any alcohol or drug abuse patient.[facility] HospitalIn the event this information is protected by the Federal Confidentiality of Alcohol and Drug Abuse Patient Records regulations: The Federal rules restrict any use of the information to criminally investigate or prosecute any alcohol or drug abuse patient.[facility] HospitalIn the event this information is protected by the Federal Confidentiality of Alcohol and Drug Abuse Patient Records regulations: The Federal rules restrict any use of the information to criminally investigate or prosecute any alcohol or drug abuse patient.[facility] HospitalIn the event this information is protected by the Federal Confidentiality of Alcohol and Drug Abuse Patient Records regulations: The Federal rules restrict any use of the information to criminally investigate or prosecute any alcohol or drug abuse patient.[facility] HospitalIn the event this information is protected by the Federal Confidentiality of Alcohol and Drug Abuse Patient Records regulations: The Federal rules restrict any use of the information to criminally investigate or prosecute any alcohol or drug abuse patient.[facility] HospitalIn the event this information is protected by the Federal Confidentiality of Alcohol and Drug Abuse Patient Records regulations: The Federal rules restrict any use of the information to criminally investigate or prosecute any alcohol or drug abuse patient.[facility] HospitalIn the event this information is protected by the Federal Confidentiality of Alcohol and Drug Abuse Patient Records regulations: The Federal rules restrict any use of the information to criminally investigate or prosecute any alcohol or drug abuse patient.[facility] HospitalIn the event this information is protected by the Federal Confidentiality of Alcohol and Drug Abuse Patient Records regulations: The Federal rules restrict any use of the information to criminally investigate or prosecute any alcohol or drug abuse patient.[facility] HospitalIn the event this information is protected by the Federal Confidentiality of Alcohol and Drug Abuse Patient Records regulations: The Federal rules restrict any use of the information to criminally investigate or prosecute any alcohol or drug abuse patient.[facility] HospitalIn the event this information is protected by the Federal Confidentiality of Alcohol and Drug Abuse Patient Records regulations: The Federal rules restrict any use of the information to criminally investigate or prosecute any alcohol or drug abuse patient.[facility] HospitalIn the event this information is protected by the Federal Confidentiality of Alcohol and Drug Abuse Patient Records regulations: The Federal rules restrict any use of the information to criminally investigate or prosecute any alcohol or drug abuse patient.[facility] HospitalIn the event this information is protected by the Federal Confidentiality of Alcohol and Drug Abuse Patient Records regulations: The Federal rules restrict any use of the information to criminally investigate or prosecute any alcohol or drug abuse patient.[facility] HospitalIn the event this information is protected by the Federal Confidentiality of Alcohol and Drug Abuse Patient Records regulations: The Federal rules restrict any use of the information to criminally investigate or prosecute any alcohol or drug abuse patient.[facility] HospitalIn the event this information is protected by the Federal Confidentiality of Alcohol and Drug Abuse Patient Records regulations: The Federal rules restrict any use of the information to criminally investigate or prosecute any alcohol or drug abuse patient.[facility] HospitalIn the event this information is protected by the Federal Confidentiality of Alcohol and Drug Abuse Patient Records regulations: The Federal rules restrict any use of the information to criminally investigate or prosecute any alcohol or drug abuse patient.[facility] HospitalIn the event this information is protected by the Federal Confidentiality of Alcohol and Drug Abuse Patient Records regulations: The Federal rules restrict any use of the information to criminally investigate or prosecute any alcohol or drug abuse patient.[facility] HospitalIn the event this information is protected by the Federal Confidentiality of Alcohol and Drug Abuse Patient Records regulations: The Federal rules restrict any use of the information to criminally investigate or prosecute any alcohol or drug abuse patient.[facility] HospitalIn the event this information is protected by the Federal Confidentiality of Alcohol and Drug Abuse Patient Records regulations: The Federal rules restrict any use of the information to criminally investigate or prosecute any alcohol or drug abuse patient.[facility] HospitalIn the event this information is protected by the Federal Confidentiality of Alcohol and Drug Abuse Patient Records regulations: The Federal rules restrict any use of the information to criminally investigate or prosecute any alcohol or drug abuse patient.[facility] HospitalIn the event this information is protected by the Federal Confidentiality of Alcohol and Drug Abuse Patient Records regulations: The Federal rules restrict any use of the information to criminally investigate or prosecute any alcohol or drug abuse patient.[facility] HospitalIn the event this information is protected by the Federal Confidentiality of Alcohol and Drug Abuse Patient Records regulations: The Federal rules restrict any use of the information to criminally investigate or prosecute any alcohol or drug abuse patient.[facility] HospitalIn the event this information is protected by the Federal Confidentiality of Alcohol and Drug Abuse Patient Records regulations: The Federal rules restrict any use of the information to criminally investigate or prosecute any alcohol or drug abuse patient.[facility] HospitalIn the event this information is protected by the Federal Confidentiality of Alcohol and Drug Abuse Patient Records regulations: The Federal rules restrict any use of the information to criminally investigate or prosecute any alcohol or drug abuse patient.[facility] HospitalIn the event this information is protected by the Federal Confidentiality of Alcohol and Drug Abuse Patient Records regulations: The Federal rules restrict any use of the information to criminally investigate or prosecute any alcohol or drug abuse patient.[facility] HospitalIn the event this information is protected by the Federal Confidentiality of Alcohol and Drug Abuse Patient Records regulations: The Federal rules restrict any use of the information to criminally investigate or prosecute any alcohol or drug abuse patient.[facility] HospitalIn the event this information is protected by the Federal Confidentiality of Alcohol and Drug Abuse Patient Records regulations: The Federal rules restrict any use of the information to criminally investigate or prosecute any alcohol or drug abuse patient.[facility] HospitalIn the event this information is protected by the Federal Confidentiality of Alcohol and Drug Abuse Patient Records regulations: The Federal rules restrict any use of the information to criminally investigate or prosecute any alcohol or drug abuse patient.[facility] HospitalIn the event this information is protected by the Federal Confidentiality of Alcohol and Drug Abuse Patient Records regulations: The Federal rules restrict any use of the information to criminally investigate or prosecute any alcohol or drug abuse patient.[facility] HospitalIn the event this information is protected by the Federal Confidentiality of Alcohol and Drug Abuse Patient Records regulations: The Federal rules restrict any use of the information to criminally investigate or prosecute any alcohol or drug abuse patient.[facility] HospitalIn the event this information is protected by the Federal Confidentiality of Alcohol and Drug Abuse Patient Records regulations: The Federal rules restrict any use of the information to criminally investigate or prosecute any alcohol or drug abuse patient.[facility] HospitalIn the event this information is protected by the Federal Confidentiality of Alcohol and Drug Abuse Patient Records regulations: The Federal rules restrict any use of the information to criminally investigate or prosecute any alcohol or drug abuse patient.[facility] HospitalIn the event this information is protected by the Federal Confidentiality of Alcohol and Drug Abuse Patient Records regulations: The Federal rules restrict any use of the information to criminally investigate or prosecute any alcohol or drug abuse patient.[facility] HospitalIn the event this information is protected by the Federal Confidentiality of Alcohol and Drug Abuse Patient Records regulations: The Federal rules restrict any use of the information to criminally investigate or prosecute any alcohol or drug abuse patient.[facility] HospitalIn the event this information is protected by the Federal Confidentiality of Alcohol and Drug Abuse Patient Records regulations: The Federal rules restrict any use of the information to criminally investigate or prosecute any alcohol or drug abuse patient.[facility] HospitalIn the event this information is protected by the Federal Confidentiality of Alcohol and Drug Abuse Patient Records regulations: The Federal rules restrict any use of the information to criminally investigate or prosecute any alcohol or drug abuse patient.[facility] HospitalIn the event this information is protected by the Federal Confidentiality of Alcohol and Drug Abuse Patient Records regulations: The Federal rules restrict any use of the information to criminally investigate or prosecute any alcohol or drug abuse patient.[facility] HospitalIn the event this information is protected by the Federal Confidentiality of Alcohol and Drug Abuse Patient Records regulations: The Federal rules restrict any use of the information to criminally investigate or prosecute any alcohol or drug abuse patient.[facility] HospitalIn the event this information is protected by the Federal Confidentiality of Alcohol and Drug Abuse Patient Records regulations: The Federal rules restrict any use of the information to criminally investigate or prosecute any alcohol or drug abuse patient.[facility] HospitalIn the event this information is protected by the Federal Confidentiality of Alcohol and Drug Abuse Patient Records regulations: The Federal rules restrict any use of the information to criminally investigate or prosecute any alcohol or drug abuse patient.[facility] HospitalIn the event this information is protected by the Federal Confidentiality of Alcohol and Drug Abuse Patient Records regulations: The Federal rules restrict any use of the information to criminally investigate or prosecute any alcohol or drug abuse patient.[facility] HospitalIn the event this information is protected by the Federal Confidentiality of Alcohol and Drug Abuse Patient Records regulations: The Federal rules restrict any use of the information to criminally investigate or prosecute any alcohol or drug abuse patient.[facility] HospitalIn the event this information is protected by the Federal Confidentiality of Alcohol and Drug Abuse Patient Records regulations: The Federal rules restrict any use of the information to criminally investigate or prosecute any alcohol or drug abuse patient.[facility] Care Teams (unrecognized sec tion and content) Supervisor Newspaper Deliveries Relationship Specialty Start Date End Date Doreen Le PA-C [address] [place] [address] PCP - General Family Practice 11/26/16 No, Referral Referring 01/31/19 [place] [address] [place] [address] Primary Staff Physician Cardiology 07/15/21 Supervisor Newspaper Deliveries Relationship Specialty Start Date End Date Doreen Le PA-C [address] [place] [address] PCP - General Family Practice 11/26/16 No, Referral Referring 01/31/19 [place] [address] [place], [place] 4492284 [phone] Primary Staff Physician Cardiology 07/15/21 Supervisor Newspaper Deliveries Relationship Specialty Start Date End Date Doreen Le PA-C [address] [place] [address] PCP - General Family Practice 11/26/16 No, Referral Referring 01/31/19 [place] [address] [place], [place] 4279435 [phone] Primary Staff Physician Cardiology 07/15/21 Supervisor Newspaper Deliveries Relationship Specialty Start Date End Date Doreen Le PA-C [address] [place] [address] PCP - General Family Practice 11/26/16 No, Referral Referring 01/31/19 [place] [address] [place] [address] Primary Staff Physician Cardiology 07/15/21 Supervisor Newspaper Deliveries Relationship Specialty Start Date End Date Doreen Le PA-C [address] [place] [address] PCP - General Family Practice 11/26/16 No, Referral Referring 01/31/19 [place] [address] [place], [place] 9955160 [phone] Primary Staff Physician Cardiology 07/15/21 Supervisor Newspaper Deliveries Relationship Specialty Start Date End Date Doreen Le PA-C [address] [place] [address] PCP - General Family Practice 11/26/16 No, Referral Referring 01/31/19 [place] [address] [address] [place], [place] [id number] Primary Staff Physician Cardiology 07/15/21 Supervisor Newspaper Deliveries Relationship Specialty Start Date End Date Doreen Le PA-C [address] [place], [place] 369731 PCP - General Family Practice 11/26/16 No, Referral Referring 01/31/19 [place] [address] [place], [place] 8138402 [phone] Primary Staff Physician Cardiology 07/15/21 Supervisor Newspaper Deliveries Relationship Specialty Start Date End Date Doreen Le PA-C [address] [place] [address] PCP - General Family Practice 11/26/16 No, Referral Referring 01/31/19 [place] [address] [address] [place], [place] 5699626 Primary Staff Physician Cardiology 07/15/21 Supervisor Newspaper Deliveries Relationship Specialty Start Date End Date Doreen Le PA-C [address] [place] [address] PCP - General Family Practice 11/26/16 No, Referral Referring 01/31/19 [place] [address] [address] [place], [place] 3122072 [phone] Primary Staff Physician Cardiology 07/15/21 Supervisor Newspaper Deliveries Relationship Specialty Start Date End Date Doreen Le PA-C [address] [place] [address] PCP - General Family Practice 11/26/16 No, Referral Referring 01/31/19 [place] [address] [place], [place] 7286020 [phone] Primary Staff Physician Cardiology 07/15/21 Supervisor Newspaper Deliveries Relationship Specialty Start Date End Date Doreen Le PA-C [address] [place] [address] PCP - General Family Practice 11/26/16 No, Referral Referring 01/31/19 [place] [address] [place], [place] 0671866 [phone] Primary Staff Physician Cardiology 07/15/21 Supervisor Newspaper Deliveries Relationship Specialty Start Date End Date Doreen Le PA-C [address] [place] [address] PCP - General Family Practice 11/26/16 No, Referral Referring 01/31/19 [place] [address] [place] [address] Primary Staff Physician Cardiology 07/15/21 Supervisor Newspaper Deliveries Relationship Specialty Start Date End Date Doreen Le PA-C [address] [place] [address] PCP - General Family Practice 11/26/16 No, Referral Referring 01/31/19 [place] [address] [facility] [place] [address] Primary Staff Physician Cardiology 07/15/21 Supervisor Newspaper Deliveries Relationship Specialty Start Date End Date Doreen Le PA-C [address] [place] [address] PCP - General Family Practice 11/26/16 No, Referral Referring 01/31/19 [place] [address] [place], [place] 8829403 [phone] Primary Staff Physician Cardiology 07/15/21 Supervisor Newspaper Deliveries Relationship Specialty Start Date End Date Doreen Le PA-C [address] [place], [place] 863091 PCP - General Family Practice 11/26/16 No, Referral Referring 01/31/19 [place] [address] [address] [place], [place] 5278726 Primary Staff Physician Cardiology 07/15/21 Supervisor Newspaper Deliveries Relationship Specialty Start Date End Date Doreen Le PA-C [address] [place], [place] 508561 PCP - General Family Practice 11/26/16 No, Referral Referring 01/31/19 [place] [address] [facility] [place], [place] 5202726 Primary Staff Physician Cardiology 07/15/21 Supervisor Newspaper Deliveries Relationship Specialty Start Date End Date Doreen Le PA-C [address] [place] [address] PCP - General Family Practice 11/26/16 No, Referral Referring 01/31/19 [place] [address] [address] [place], [place] 7382882 [phone] Primary Staff Physician Cardiology 07/15/21 Supervisor Newspaper Deliveries Relationship Specialty Start Date End Date Doreen Le PA-C [address] [place] [address] PCP - General Family Practice 11/26/16 No, Referral Referring 01/31/19 [place] [address] [place], [place] 3845676 [phone] Primary Staff Physician Cardiology 07/15/21 Cervantes, Sheridan E, [place] archeology professor Medieval English Literature Professor 02/25/22 03/27/22 Supervisor Newspaper Deliveries Relationship Specialty Start Date End Date Doreen Le PA-C [address] [place] [address] PCP - General Family Practice 11/26/16 No, Referral Referring 01/31/19 [place] [address] [address] [place], [place] 6799626 Primary Staff Physician Cardiology 07/15/21 Sheridan Cervantes, [place] archeology professor Medieval English Literature Professor 02/25/22 03/27/22 Carla Burdick MD [address] [place] [address] Cardiology 03/03/22 03/03/22 Carla Burdick MD [address] [place] [address] Primary Staff Physician Cardiology 03/03/22 Supervisor Newspaper Deliveries Relationship Specialty Start Date End Date Doreen Le PA-C [address] [place] [address] PCP - General Family Practice 11/26/16 No, Referral Referring 01/31/19 [place] [address] [address] [place], [place] 6227226 Primary Staff Physician Cardiology 07/15/21 Sheridan Cervantes, [place] archeology professor Medieval English Literature Professor 02/25/22 03/27/22 Carla Burdick MD [address] [place] [address] Cardiology 03/03/22 03/03/22 Carla Burdick MD [address] [facility] [place] [address] Primary Staff Physician Cardiology 03/03/22 Supervisor Newspaper Deliveries Relationship Specialty Start Date End Date Doreen Le PA-C [address] [place], [place] 630111 PCP - General Family Practice 11/26/16 No, Referral Referring 01/31/19 [place] [address] [address] [place], [place] 0887826 Primary Staff Physician Cardiology 07/15/21 Sheridan Cervantes [place] archeology professor Medieval English Literature Professor 02/25/22 03/27/22 Carla Burdick MD [address] [place], [place] 891861 Primary Staff Physician Cardiology 03/03/22 Supervisor Newspaper Deliveries Relationship Specialty Start Date End Date Doreen Le PA-C [address] [place] [address] PCP - General Family Practice 11/26/16 No, Referral Referring 01/31/19 [place] [address] [address], [place] 3361326 Primary Staff Physician Cardiology 07/15/21 Sheridan Cervantes RN Primary Care Medieval English Literature Professor 02/25/22 03/27/22 Carla Burdick MD [address] [facility] [place] [address] Primary Staff Physician Cardiology 03/03/22 Supervisor Newspaper Deliveries Relationship Specialty Start Date End Date Doreen Le PA-C [address] [place] [address] PCP - General Family Practice 11/26/16 No, Referral Referring 01/31/19 [place] [address] [address], [place] 6644626 Primary Staff Physician Cardiology 07/15/21 Sheridan Cervantes, [place] archeology professor Medieval English Literature Professor 02/25/22 03/27/22 Carla Burdick MD [address] [place] [address] Primary Staff Physician Cardiology 03/03/22 Supervisor Newspaper Deliveries Relationship Specialty Start Date End Date Doreen Le PA-C [address] [place] [address] PCP - General Family Practice 11/26/16 No, Referral Referring 01/31/19 [place] [address] [facility] [place], [place] 9826426 Primary Staff Physician Cardiology 07/15/21 Carla Burdick MD [address] [place] [address] Primary Staff Physician Cardiology 03/03/22 Supervisor Newspaper Deliveries Relationship Specialty Start Date End Date Doreen Le PA-C [address] [place] [address] PCP - General Family Practice 11/26/16 No, Referral Referring 01/31/19 [place] [address] [address] [place], [place] 9383926 Primary Staff Physician Cardiology 07/15/21 Carla Burdick MD [address] [place] [address] Primary Staff Physician Cardiology 03/03/22 Supervisor Newspaper Deliveries Relationship Specialty Start Date End Date Doreen Le PA-C [address] [place] [address] PCP - General Family Medicine 11/26/16 No, Referral Referring 01/31/19 [place] [address] [place] [address] Primary Staff Physician Cardiology 07/15/21 Carla Burdick MD [address] [place] [address] Primary Staff Physician Cardiology 03/03/22 Supervisor Newspaper Deliveries Relationship Specialty Start Date End Date oDreen Le PA-C [address] [place] [address] PCP - General Family Medicine 11/26/16 No, Referral Referring 01/31/19 [place] [address] [facility] [place] [address] Primary Staff Physician Cardiology 07/15/21 Carla Burdick MD [address] [place] [address] Primary Staff Physician Cardiology 03/03/22 Supervisor Newspaper Deliveries Relationship Specialty Start Date End Date Doreen Le PA-C [address] [place] [address] PCP - General Family Medicine 11/26/16 No, Referral Referring 01/31/19 [place] [address] [place] [address] Primary Staff Physician Cardiology 07/15/21 Carla Burdick MD [address] [place] [address] Primary Staff Physician Cardiology 03/03/22 Supervisor Newspaper Deliveries Relationship Specialty Start Date End Date Doreen Le PA-C [address] [place] [address] PCP - General Family Medicine 11/26/16 No, Referral Referring 01/31/19 [place] [address] [place], [place] [phone] Primary Staff Physician Cardiology 07/15/21 Carla Burdick MD [address] [place] [address] Cardiology 03/03/22 03/03/22 Carla Burdick MD [address] [place] [address] Primary Staff Physician Cardiology 03/03/22 Supervisor Newspaper Deliveries Relationship Specialty Start Date End Date Doreen Le PA-C [address] [place] [address] PCP - General Family Medicine 11/26/16 No, Referral Referring 01/31/19 [place] [address] [place] [address] Primary Staff Physician Cardiology 07/15/21 Carla Burdick MD [address] [place] [address] Primary Staff Physician Cardiology 03/03/22 Supervisor Newspaper Deliveries Relationship Specialty Start Date End Date Doreen Le PA-C [address] [place] [address] PCP - General Family Medicine 11/26/16 No, Referral Referring 01/31/19 [place] [address] [place] [address] Primary Staff Physician Cardiology 07/15/21 Carla Burdick MD [address] [facility] [place] [address] Primary Staff Physician Cardiology 03/03/22 Supervisor Newspaper Deliveries Relationship Specialty Start Date End Date Doreen Le PA-C [address] [place] [address] PCP - General Family Medicine 11/26/16 No, Referral Referring 01/31/19 [place] [address] [facility] [place] [address] Primary Staff Physician Cardiology 07/15/21 Carla Burdick MD [address] [place] [address] Primary Staff Physician Cardiology 03/03/22 Supervisor Newspaper Deliveries Relationship Specialty Start Date End Date Doreen Le PA-C [address] [place] [address] PCP - General Family Medicine 11/26/16 No, Referral Referring 01/31/19 [place] [address] [facility] [place] [address] Primary Staff Physician Cardiology 07/15/21 Carla Burdick MD [address] [place] [address] Primary Staff Physician Cardiology 03/03/22 Supervisor Newspaper Deliveries Relationship Specialty Start Date End Date Doreen Le PA-C [address] [place] [address] PCP - General Family Medicine 11/26/16 No, Referral Referring 01/31/19 [place] [address] [place] [address] Primary Staff Physician Cardiology 07/15/21 Carla Burdick MD [address] [facility] [place] [address] Primary Staff Physician Cardiology 03/03/22 Supervisor Newspaper Deliveries Relationship Specialty Start Date End Date Doreen Le PA-C [address] [place] [address] PCP - General Family Medicine 11/26/16 No, Referral Referring 01/31/19 [place] [address] [facility] [place], [place] 6289571 [phone] Primary Staff Physician Cardiology 07/15/21 Carla Burdick MD [address] [place] [address] Primary Staff Physician Cardiology 03/03/22 Sonny Lund MD [address] [place] [address] Hematology/Oncology 04/22/22 Supervisor Newspaper Deliveries Relationship Specialty Start Date End Date Doreen Le PA-C [address] [place] [address] PCP - General Family Medicine 11/26/16 No, Referral Referring 01/31/19 [place] [address] [place], [place] 2666926 Primary Staff Physician Cardiology 07/15/21 Carla Burdick MD [address] [place] [address] Primary Staff Physician Cardiology 03/03/22 Sonny Lund MD [address] [place] [address] Hematology/Oncology 04/22/22 Supervisor Newspaper Deliveries Relationship Specialty Start Date End Date Doreen Le PA-C [address] [place] [address] PCP - General Family Medicine 11/26/16 No, Referral Referring 01/31/19 [place] [address] [facility] [place] [address] Primary Staff Physician Cardiology 07/15/21 Carla Burdick MD [address] [facility] [place] [address] Primary Staff Physician Cardiology 03/03/22 Sonny Lund MD [address] [facility] [place] [place] [address] Hematology/Oncology 04/22/22 Supervisor Newspaper Deliveries Relationship Specialty Start Date End Date Doreen Le PA-C [address] [facility] [place] [address] PCP - General Family Medicine 11/26/16 No, Referral Referring 01/31/19 [place] [address] [place] [address] Primary Staff Physician Cardiology 07/15/21 Carla Burdick MD [address] [facility] [place] [address] Primary Staff Physician Cardiology 03/03/22 Sonny Lund MD [address] [facility] [place] [address] Hematology/Oncology 04/22/22 Supervisor Newspaper Deliveries Relationship Specialty Start Date End Date Doreen Le PA-C [address] [facility] [place] [address] PCP - General Family Medicine 11/26/16 No, Referral Referring 01/31/19 [place] [address] [place] [address] Primary Staff Physician Cardiology 07/15/21 Carla Burdick MD [address] [facility] [place] [place] [address] Primary Staff Physician Cardiology 03/03/22 Sonny Lund MD [address] [facility] [place] [address] Hematology/Oncology 04/22/22 Supervisor Newspaper Deliveries Relationship Specialty Start Date End Date Doreen Le PA-C [address] [facility] [place] [address] PCP - General Family Medicine 11/26/16 No, Referral Referring 01/31/19 [place] [address] [facility] [place] [address] Primary Staff Physician Cardiology 07/15/21 Carla Burdick MD [address] [facility] [place] [address] Primary Staff Physician Cardiology 03/03/22 Sonny Lund MD [address] [facility] [place] [address] Hematology/Oncology 04/22/22 Supervisor Newspaper Deliveries Relationship Specialty Start Date End Date Doreen Le PA-C [address] [facility] [place] [address] PCP - General Family Medicine 11/26/16 No, Referral Referring 01/31/19 [place] [address] [facility] [place] [address] Primary Staff Physician Cardiology 07/15/21 Carla Burdick MD [address] [facility] [place] [address] Primary Staff Physician Cardiology 03/03/22 Sonny Lund MD [address] [facility] [place] [place] [address] Hematology/Oncology 04/22/22 Supervisor Newspaper Deliveries Relationship Specialty Start Date End Date Doreen Le PA-C [address] [facility] [place] [address] PCP - General Family Medicine 11/26/16 No, Referral Referring 01/31/19 [place] [address] [place] [address] Primary Staff Physician Cardiology 07/15/21 Carla Burdick MD [address] [facility] [place] [address] Primary Staff Physician Cardiology 03/03/22 Sonny Lund MD [address] [facility] [place] [address] Hematology/Oncology 04/22/22 Supervisor Newspaper Deliveries Relationship Specialty Start Date End Date Doreen Le PA-C [address] [facility] [place] [address] PCP - General Family Medicine 11/26/16 No, Referral Referring 01/31/19 [place] [address] [place] [address] Primary Staff Physician Cardiology 07/15/21 Carla Burdick MD [address] [facility] [place] [address] Primary Staff Physician Cardiology 03/03/22 Sonny Lund MD [address] [facility] [place] [address] Hematology/Oncology 04/22/22 Supervisor Newspaper Deliveries Relationship Specialty Start Date End Date Doreen Le PA-C [address] [facility] [place] [address] PCP - General Family Medicine 11/26/16 No, Referral Referring 01/31/19 [place] [address] [facility] [place] [place] [address] Primary Staff Physician Cardiology 07/15/21 Carla Burdick MD [address] [facility] [place] [address] Primary Staff Physician Cardiology 03/03/22 Sonny Lund MD [address] [place] [address] Hematology/Oncology 04/22/22 Supervisor Newspaper Deliveries Relationship Specialty Start Date End Date Doreen Le PACarolineC [address] [place] [address] PCP - General Family Medicine 11/26/16 No, Referral Referring 01/31/19 [place] [address] [facility] [place] [address] Primary Staff Physician Cardiology 07/15/21 Carla Burdick MD [address] [facility] [place] [address] Primary Staff Physician Cardiology 03/03/22 Sonny Lund MD [address] [facility] [place] [address] Hematology/Oncology 04/22/22 Supervisor Newspaper Deliveries Relationship Specialty Start Date End Date Doreen Le PA-C [address] [place] [address] PCP - General Family Medicine 11/26/16 No, Referral Referring 01/31/19 [place] [address] [place] [address] Primary Staff Physician Cardiology 07/15/21 Carla Burdick MD [address] [place] [address] Primary Staff Physician Cardiology 03/03/22 Sonny Lund MD [address] [facility] [place] [place] [address] Hematology/Oncology 04/22/22 Supervisor Newspaper Deliveries Relationship Specialty Start Date End Date Doreen Le PA-C [address] [facility] [place] [address] PCP - General Family Medicine 11/26/16 No, Referral Referring 01/31/19 [place] [address] [place], [place] 4735027 [phone] Primary Staff Physician Cardiology 07/15/21 Carla Burdick MD [address] [facility] [place] [address] Primary Staff Physician Cardiology 03/03/22 Sonny Lund MD [address] [facility] [place] [address] Hematology/Oncology 04/22/22 Supervisor Newspaper Deliveries Relationship Specialty Start Date End Date Doreen Le PA-C [address] [facility] [place] [address] PCP - General Family Medicine 11/26/16 No, Referral Referring 01/31/19 [place] [address] [place] [address] Primary Staff Physician Cardiology 07/15/21 Carla Burdick MD [address] [facility] [place] [address] Primary Staff Physician Cardiology 03/03/22 Sonny Lund MD [address] [facility] [place] [address] Hematology/Oncology 04/22/22 Supervisor Newspaper Deliveries Relationship Specialty Start Date End Date Doreen Le PA-C [address] [place], [place] 712391 PCP - General Family Medicine 11/26/16 No, Referral Referring 01/31/19 [place] [address] [place], [place] 0807026 Primary Staff Physician Cardiology 07/15/21 Carla Burdick MD [address] [facility] [place], [place] [address] Primary Staff Physician Cardiology 03/03/22 Sonny Lund MD [address] [facility] [place] [address] Hematology/Oncology 04/22/22 Supervisor Newspaper Deliveries Relationship Specialty Start Date End Date Doreen Le PA-C [address] [place], [place] 135411 PCP - General Family Medicine 11/26/16 No, Referral Referring 01/31/19 [place] [address] [place], [place] 1894126 Primary Staff Physician Cardiology 07/15/21 Carla Burdick MD [address] [facility] [place], [place] [address]111 Primary Staff Physician Cardiology 03/03/22 Sonny Lund MD [address] [facility] [place] [address] Hematology/Oncology 04/22/22 Supervisor Newspaper Deliveries Relationship Specialty Start Date End Date Doreen Le PA-C [address]40 [place], [place] 278261 PCP - General Family Medicine 11/26/16 No, Referral Referring 01/31/19 [place] [address] [address] [place], [place] 2555226 Primary Staff Physician Cardiology 07/15/21 Carla Burdick MD [address] [place], [place] 451521 Primary Staff Physician Cardiology 03/03/22 Sonny Lund MD [address] [facility] [place], [place] 00[address]51 Hematology/Oncology 04/22/22 Supervisor Newspaper Deliveries Relationship Specialty Start Date End Date Doreen Le PA-C [address] [place], [place] 614481 PCP - General Family Medicine 11/26/16 No, Referral Referring 01/31/19 [place] [address] [place], [place] 4843726 Primary Staff Physician Cardiology 07/15/21 Carla Burdick MD [address] [facility] [place], [place] 7[address]41 Primary Staff Physician Cardiology 03/03/22 Sonny Lund MD [address] [facility] [place] [address] Hematology/Oncology 04/22/22 Supervisor Newspaper Deliveries Relationship Specialty Start Date End Date Doreen Le PA-C [address] [place], [place] 070491 PCP - General Family Medicine 11/26/16 No, Referral Referring 01/31/19 [place] [address] [place], [place] 1495826 Primary Staff Physician Cardiology 07/15/21 Carla Burdick MD [address] [place], [place] 707991 Primary Staff Physician Cardiology 03/03/22 Sonny Lund MD [address] [place] [address] Hematology/Oncology 04/22/22 Supervisor Newspaper Deliveries Relationship Specialty Start Date End Date Doreen Le PA-C [address] [place] [address] PCP - General Family Medicine 11/26/16 No, Referral Referring 01/31/19 [place] [address] [place], [place] 7957226 Primary Staff Physician Cardiology 07/15/21 Carla Burdick MD [address] [place], [place] 467471 Primary Staff Physician Cardiology 03/03/22 Sonny Lund MD [address] [facility] [place] [address] Hematology/Oncology 04/22/22 Supervisor Newspaper Deliveries Relationship Specialty Start Date End Date Doreen Le PA-C [address] [place], [place] 662171 PCP - General Family Medicine 11/26/16 No, Referral Referring 01/31/19 [place] [address] [address] [place], [place] 1614026 Primary Staff Physician Cardiology 07/15/21 Carla Burdick MD [address] [place], [place] 048651 Primary Staff Physician Cardiology 03/03/22 Sonny Lund MD [address] [place], [place] 962751 Hematology/Oncology 04/22/22 Supervisor Newspaper Deliveries Relationship Specialty Start Date End Date Doreen Le PA-C [address] [place], [place] 025251 PCP - General Family Medicine 11/26/16 No, Referral Referring 01/31/19 [place] [address] [place], [place] 4685426 Primary Staff Physician Cardiology 07/15/21 Carla Burdick MD [address] [place], [place] 324931 Primary Staff Physician Cardiology 03/03/22 Sonny Lund MD [address] [facility] [place] [address] Hematology/Oncology 04/22/22 Supervisor Newspaper Deliveries Relationship Specialty Start Date End Date Doreen Le PA-C [address] [place], [place] 676951 PCP - General Family Medicine 11/26/16 No, Referral Referring 01/31/19 [place] [address] [place], [place] 5368626 Primary Staff Physician Cardiology 07/15/21 Carla Burdick MD [address] [place] 254321 Primary Staff Physician Cardiology 03/03/22 Sonny Lund MD [address] [place], [place] 636601 Hematology/Oncology 04/22/22 Supervisor Newspaper Deliveries Relationship Specialty Start Date End Date Doreen Le PA-C [address] [place], [place] 472111 PCP - General Family Medicine 11/26/16 No, Referral Referring 01/31/19 [place] [address] [place], [place] 8733826 Primary Staff Physician Cardiology 07/15/21 Carla Burdick MD [address] [place], [place] 677721 Primary Staff Physician Cardiology 03/03/22 Sonny Lund MD [address] [facility] [place] 737001 Hematology/Oncology 04/22/22 Supervisor Newspaper Deliveries Relationship Specialty Start Date End Date Doreen Le PA-C [address] [place], [place] 664631 PCP - General Family Medicine 11/26/16 No, Referral Referring 01/31/19 [place] [address] [address] [place], [place] 3615526 Primary Staff Physician Cardiology 07/15/21 Carla Burdick MD [address] [place], [place] 634951 Primary Staff Physician Cardiology 03/03/22 Sonny Lnud MD [address] [facility] [place] [address] Hematology/Oncology 04/22/22 Supervisor Newspaper Deliveries Relationship Specialty Start Date End Date Doreen Le PA-C [address] [place], [place] 237191 PCP - General Family Medicine 11/26/16 No, Referral Referring 01/31/19 [place] [address] [address] [place], [place] 3991626 Primary Staff Physician Cardiology 07/15/21 Carla Burdick MD [address] [place], [place] 00297691 Primary Staff Physician Cardiology 03/03/22 Sonny Lund MD [address] [facility] [place], [place] 931071 Hematology/Oncology 04/22/22 Supervisor Newspaper Deliveries Relationship Specialty Start Date End Date Doreen Le PA-C [address] [place], [place] 627261 PCP - General Family Medicine 11/26/16 No, Referral Referring 01/31/19 [place] [address] [place] [place], [place] 2148626 Primary Staff Physician Cardiology 07/15/21 Carla Burdick MD [address] [place], [place] 417671 Primary Staff Physician Cardiology 03/03/22 Sonny Lund MD [address] [facility] [place] 511571 Hematology/Oncology 04/22/22 Supervisor Newspaper Deliveries Relationship Specialty Start Date End Date Doreen Le PA-C [address] [place], [place] 440011 PCP - General Family Medicine 11/26/16 No, Referral Referring 01/31/19 [place] [address] [address], [place] 4486626 Primary Staff Physician Cardiology 07/15/21 Carla Burdick MD [address] [place], [place] 574901 Primary Staff Physician Cardiology 03/03/22 Sonny Lund MD [address] [facility] [place] 367281 Hematology/Oncology 04/22/22 Supervisor Newspaper Deliveries Relationship Specialty Start Date End Date Doreen Le PA-C [address] [place], [place] 431111 PCP - General Family Medicine 11/26/16 No, Referral Referring 01/31/19 [place] [address] [place] [place], [place] 1887726 Primary Staff Physician Cardiology 07/15/21 Carla Burdick MD [address] [facility] [place] 511121 Primary Staff Physician Cardiology 03/03/22 Sonny Lund MD [address] [place] 389061 Hematology/Oncology 04/22/22 Supervisor Newspaper Deliveries Relationship Specialty Start Date End Date Doreen Le PA-C [address] [place], [place] 720791 PCP - General Family Medicine 11/26/16 No, Referral Referring 01/31/19 [place] [address] [place], [place] 8213026 Primary Staff Physician Cardiology 07/15/21 Carla Burdick MD [address] [facility] [place] 0[address] Primary Staff Physician Cardiology 03/03/22 Sonny Lund MD [address] [place] 074681 Hematology/Oncology 04/22/22 Supervisor Newspaper Deliveries Relationship Specialty Start Date End Date Doreen Le PA-C [address] [place], [place] 304431 PCP - General Family Medicine 11/26/16 No, Referral Referring 01/31/19 [place] [address] [place] [place], [place] 0067626 Primary Staff Physician Cardiology 07/15/21 Carla Burdick MD [address] [facility] [place] 215361 Primary Staff Physician Cardiology 03/03/22 Sonny Lund MD [address] [place] [place], [place] 672441 Hematology/Oncology 04/22/22 Supervisor Newspaper Deliveries Relationship Specialty Start Date End Date Doreen Le PA-C [address] [place], [place] 798421 PCP - General Family Medicine 11/26/16 No, Referral Referring 01/31/19 [place] [address] [place] [place], [place] 3666326 Primary Staff Physician Cardiology 07/15/21 Carla Burdick MD [address] [place] 177831 Primary Staff Physician Cardiology 03/03/22 Sonny Lund MD [address] [facility] [place], [place] 641271 Hematology/Oncology 04/22/22 Supervisor Newspaper Deliveries Relationship Specialty Start Date End Date Doreen Le PA-C [address] [place], [place] 050951 PCP - General Family Medicine 11/26/16 No, Referral Referring 01/31/19 [place] [address] [place], [place] 3245726 Primary Staff Physician Cardiology 07/15/21 Carla Burdick MD [address] [facility] [place] 455431 Primary Staff Physician Cardiology 03/03/22 Sonny Lund MD [address] [place] [place] 084441 Hematology/Oncology 04/22/22 Supervisor Newspaper Deliveries Relationship Specialty Start Date End Date Doreen Le PA-C [address] [place], [place] 817651 PCP - General Family Medicine 11/26/16 No, Referral Referring 01/31/19 [place] [address] [place] [place], [place] 0652926 Primary Staff Physician Cardiology 07/15/21 Carla Burdick MD [address] [place] 991671 Primary Staff Physician Cardiology 03/03/22 Sonny Lund MD [address] [place] 305471 Hematology/Oncology 04/22/22 Supervisor Newspaper Deliveries Relationship Specialty Start Date End Date Doreen Le PA-C [address] [place], [place] 245301 PCP - General Family Medicine 11/26/16 No, Referral Referring 01/31/19 [place] [address] [place], [place] 2123026 Primary Staff Physician Cardiology 07/15/21 Carla Burdick MD [address] [facility] [place], [place] 461061 Primary Staff Physician Cardiology 03/03/22 Sonny Lund MD [address] [address] Hematology/Oncology 04/22/22 Supervisor Newspaper Deliveries Relationship Specialty Start Date End Date Doreen Le PA-C [address] [place] [address] PCP - General Family Medicine 11/26/16 No, Referral Referring 01/31/[place] [address] [place], [place] 8435926 Primary Staff Physician Cardiology 07/15/21 Carla Burdick MD [address] [place] 651381 Primary Staff Physician Cardiology 03/03/22 Sonny Lund MD [address] [place], [place] 590111 Hematology/Oncology 04/22/22 Supervisor Newspaper Deliveries Relationship Specialty Start Date End Date Doreen Le PA-C [address] [place], [place] 587091 PCP - General Family Medicine 11/26/16 No, Referral Referring 01/31/19 [place] [address] [place], [place] 0735926 Primary Staff Physician Cardiology 07/15/21 Carla Burdick MD [address] [facility] [place] 513721 Primary Staff Physician Cardiology 03/03/22 Sonny Lund MD [address] [place] 869131 Hematology/Oncology 04/22/22 Supervisor Newspaper Deliveries Relationship Specialty Start Date End Date Doreen Le PA-C [address] [place] [address] PCP - General Family Medicine 11/26/16 No, Referral Referring 01/31/19 [place] [address] [address] [place], [place] 2190626 Primary Staff Physician Cardiology 07/15/21 Carla Burdick MD [address] [place] 307211 Primary Staff Physician Cardiology 03/03/22 Sonny Lund MD [address] [place] [place], [place] 972101 Hematology/Oncology 04/22/22 Supervisor Newspaper Deliveries Relationship Specialty Start Date End Date Doreen Le PA-C [address] [place] [address] PCP - General Family Medicine 11/26/16 No, Referral Referring 01/31/19 [place] [address] [place], [place] 0674326 Primary Staff Physician Cardiology 07/15/21 Carla Burdick MD [address] [place], [place] 250451 Primary Staff Physician Cardiology 03/03/22 Sonny Lund MD [address] [place] [address] Hematology/Oncology 04/22/22 Supervisor Newspaper Deliveries Relationship Specialty Start Date End Date Doreen Le PA-C [address] [place] [address] PCP - General Family Medicine 11/26/16 No, Referral Referring 01/31/19 [place] [address] [place], [place] 3741726 Primary Staff Physician Cardiology 07/15/21 Carla Burdick MD [address] [facility] [place] 288991 Primary Staff Physician Cardiology 03/03/22 Sonny Lund MD [address] [place] [place], [place] 03[address]31 Hematology/Oncology 04/22/22 Supervisor Newspaper Deliveries Relationship Specialty Start Date End Date Doreen Le PA-C [address]40 [place] [address] PCP - General Family Medicine 11/26/16 No, Referral Referring 01/31/19 [place] [address] [place], [place] 7644626 Primary Staff Physician Cardiology 07/15/21 Carla Burdick MD [address] [place] [address] Primary Staff Physician Cardiology 03/03/22 Sonny Lund MD [address] [place] [address] Hematology/Oncology 04/22/22 Supervisor Newspaper Deliveries Relationship Specialty Start Date End Date Doreen Le PA-C [address] [place] [address] PCP - General Family Medicine 11/26/16 No, Referral Referring 01/31/19 [place] [address] [place], [place] 1153326 Primary Staff Physician Cardiology 07/15/21 Carla Burdick MD [address] [place], [place] 821111 Primary Staff Physician Cardiology 03/03/22 Sonny Lund MD [address] [address] Hematology/Oncology 04/22/22 Supervisor Newspaper Deliveries Relationship Specialty Start Date End Date Doreen Le PA-C [address] [place] [address] PCP - General Family Medicine 11/26/16 No, Referral Referring 01/31/19 [place] [address] [place], [place] 8353526 Primary Staff Physician Cardiology 07/15/21 Carla Burdick MD [address] [place] [address] Primary Staff Physician Cardiology 03/03/22 Sonny Lund MD [address] [place] [address] Hematology/Oncology 04/22/22 Supervisor Newspaper Deliveries Relationship Specialty Start Date End Date Doreen Le PA-C [address]40 [place] [address] PCP - General Family Medicine 11/26/16 No, Referral Referring 01/31/19 [place] [address] [place], [place] 2617226 Primary Staff Physician Cardiology 07/15/21 Carla Burdick MD [address] [place] [address] Primary Staff Physician Cardiology 03/03/22 Sonny Lund MD [address] [place] [address] Hematology/Oncology 04/22/22 Supervisor Newspaper Deliveries Relationship Specialty Start Date End Date Doreen Le PA-C [address] [place] [address] PCP - General Family Medicine 11/26/16 No, Referral Referring 01/31/19 [place] [address] [place], [place] 4732626 Primary Staff Physician Cardiology 07/15/21 Supervisor Newspaper Deliveries Relationship Specialty Start Date End Date Doreen Le PA-C [address] [place], [place] 423981 PCP - General Family Medicine 11/26/16 No, Referral Referring 01/31/19 [place] [address] [place] [address] Primary Staff Physician Cardiology 07/15/21 Carla Burdick MD [address] [place], [place] 877771 Primary Staff Physician Cardiology 03/03/22 Sonny Lund MD [address] [place] [address] Hematology/Oncology 04/22/22 Supervisor Newspaper Deliveries Relationship Specialty Start Date End Date Dianne Le PA-C PCP - General Family Medicine 11/26/16 No, Referral Referring 01/31/19 [place] [address] [place], [place] 2953526 Primary Staff Physician Cardiology 07/15/21 Carla Burdick MD [address] [facility] [place] [place] 786441 Primary Staff Physician Cardiology 03/03/22 Sonny Lund MD [address] [place] [address] Hematology/Oncology 04/22/22 Deysi Nicholson APRN.MANPOWER DEVELOPMENT SPECIALIST MANAGER [address] [place] [address] Home Care Companion Family Medicine 06/09/24 Sandra Bell THERAPEUTIC DIETITIAN.MANPOWER DEVELOPMENT SPECIALIST MANAGER [address] [facility] [place] [address] [facility] 06/09/24 Supervisor Newspaper Deliveries Relationship Specialty Start Date End Date No, Referral Referring 01/31/19 [place] [address] [place] [place], [place] 3850526 Primary Staff Physician Cardiology 07/15/21 Carla Burdick MD [address] [place] [address] Primary Staff Physician Cardiology 03/03/22 Sonny Lund MD [address] [place] [address] Hematology/Oncology 04/22/22 Deysi Nicholson APRN.MANPOWER DEVELOPMENT SPECIALIST MANAGER [address] [facility] [place] [address] Home Care Companion Family Medicine 06/09/24 Sandra Bell THERAPEUTIC DIETITIAN.MANPOWER DEVELOPMENT SPECIALIST MANAGER [address] [facility] [place] [address] Home Care Companion Family [facility] 06/09/24 Supervisor Newspaper Deliveries Relationship Specialty Start Date End Date Deysi Nicholson, THERAPEUTIC DIETITIAN.MANPOWER DEVELOPMENT SPECIALIST MANAGER [address] [place], [place] 945561 PCP - General Family Medicine 07/07/24 No, Referral Referring 01/31/19 [place] [address] [place] [address] Primary Staff Physician Cardiology 07/15/21 Carla Burdick MD [address] [place], [place] 970221 Primary Staff Physician Cardiology 03/03/22 Sonny Lund MD [address] [place], [place] 175171 Hematology/Oncology 04/22/22 Deysi Nicholson, THERAPEUTIC DIETITIAN.MANPOWER DEVELOPMENT SPECIALIST MANAGER [address] [place], [place] 204071 Home Care Companion Family Medicine 06/09/24 Sandra Bell, THERAPEUTIC DIETITIAN.MANPOWER DEVELOPMENT SPECIALIST MANAGER [address] [place], [place] 790281 Home Care Companion Family Medicine 06/09/24 Supervisor Newspaper Deliveries Relationship Specialty Start Date End Date Deysi Nicholson, THERAPEUTIC DIETITIAN.MANPOWER DEVELOPMENT SPECIALIST MANAGER [address] [place], [place] 470911 PCP - General Family Medicine 07/07/24 No, Referral Referring 01/31/19 [place] [address] [place], [place] 5435526 Primary Staff Physician Cardiology 07/15/21 Carla Burdick MD [address] [place] [address] Primary Staff Physician Cardiology 03/03/22 Sonny Lund MD [address] [place] [address] Hematology/Oncology 04/22/22 Deysi Nicholson APRN.MANPOWER DEVELOPMENT SPECIALIST MANAGER [address] [place] [address] [facility] 06/09/24 Sandra Bell THERAPEUTIC DIETITIAN.MANPOWER DEVELOPMENT SPECIALIST MANAGER [address] [place] [address] [facility] 06/09/24 Supervisor Newspaper Deliveries Relationship Specialty Start Date End Date Deysi Nicholson APRN.MANPOWER DEVELOPMENT SPECIALIST MANAGER [address] [place] [address] PCP - General Family Medicine 07/07/24 No, Referral Referring 01/31/19 [place] [address] [place] [place], [place] 9937626 Primary Staff Physician Cardiology 07/15/21 Carla Burdick MD [address] [place] [address] Primary Staff Physician Cardiology 03/03/22 Sonny Lund MD [address] [place] [address] Hematology/Oncology 04/22/22 Deysi Nicholson, THERAPEUTIC DIETITIAN.MANPOWER DEVELOPMENT SPECIALIST MANAGER [address] [facility] [place] [address] Home Care Companion Family Medicine 06/09/24 Sandra Bell APRN.MANPOWER DEVELOPMENT SPECIALIST MANAGER [address] [place] [address] Home Care Companion Family Medicine 06/09/24 Supervisor Newspaper Deliveries Relationship Specialty Start Date End Date Deysi Nicholson APRN.MANPOWER DEVELOPMENT SPECIALIST MANAGER [address] [place] [address] PCP - General Family Medicine 07/07/24 No, Referral Referring 01/31/19 [place] [address] [place], [place] 3830026 Primary Staff Physician Cardiology 07/15/21 Carla Burdick MD [address] [place] [address] Primary Staff Physician Cardiology 03/03/22 Sonny Lund MD [address] [place] [address] Hematology/Oncology 04/22/22 Deysi Nicholson APRN.MANPOWER DEVELOPMENT SPECIALIST MANAGER [address] [place] [address] Home Care Companion Family [facility] 06/09/24 Sandra Bell APRN.MANPOWER DEVELOPMENT SPECIALIST MANAGER [address] [place] [address] Home Care Companion Family [facility] 06/09/24 Supervisor Newspaper Deliveries Relationship Specialty Start Date End Date Deysi Nicholson APRN.MANPOWER DEVELOPMENT SPECIALIST MANAGER [address] [place] [address] PCP - General Family Medicine 07/07/24 No, Referral Referring 01/31/19 [place] [address] [place], [place] 1160326 Primary Staff Physician Cardiology 07/15/21 Carla Burdick MD [address] [facility] [place] [address] Primary Staff Physician Cardiology 03/03/22 Sonny Lund MD [address] [place] [address] Hematology/Oncology 04/22/22 Deysi Nicholson APRN.MANPOWER DEVELOPMENT SPECIALIST MANAGER [address] [place] [address] Home Care Companion Family Medicine 06/09/24 Sandra Bell APRN.MANPOWER DEVELOPMENT SPECIALIST MANAGER [address] [place] [address] Home Care Companion Family [facility] 06/09/24 Supervisor Newspaper Deliveries Relationship Specialty Start Date End Date Deysi Nicholson APRN.MANPOWER DEVELOPMENT SPECIALIST MANAGER [address] [place] [address] PCP - General Family Medicine 07/07/24 No, Referral Referring 01/31/19 [place] [address] [place], [place] 5422626 Primary Staff Physician Cardiology 07/15/21 Carla Burdick MD [address] [place] [place] 448231 Primary Staff Physician Cardiology 03/03/22 Sonny Lund MD [address] [place] 175141 Hematology/Oncology 04/22/22 Deysi Nicholson APRN.MANPOWER DEVELOPMENT SPECIALIST MANAGER [address] [place], [place] 067461 [facility] 06/09/24 Sandra Bell THERAPEUTIC DIETITIAN.MANPOWER DEVELOPMENT SPECIALIST MANAGER [address] [place], [place] 29611691 [facility] 06/09/24 Supervisor Newspaper Deliveries Relationship Specialty Start Date End Date Deysi Nicholson APRN.MANPOWER DEVELOPMENT SPECIALIST MANAGER [address] [place], [place] 048721 PCP - General Family Medicine 07/07/24 No, Referral Referring 01/31/19 [place] [address] [place], [place] 9426926 Primary Staff Physician Cardiology 07/15/21 Carla Burdick MD [address] [place] [place], [place] 851861 Primary Staff Physician Cardiology 03/03/22 Sonny Lund MD [address] [place] [address] Hematology/Oncology 04/22/22 Deysi Nicholson APRN.MANPOWER DEVELOPMENT SPECIALIST MANAGER [address] [place], [place] 639291 [facility] 06/09/24 Sandra Bell THERAPEUTIC DIETITIAN.MANPOWER DEVELOPMENT SPECIALIST MANAGER [address] [place] [address] [facility] 06/09/24 Supervisor Newspaper Deliveries Relationship Specialty Start Date End Date Deysi Nicholson, THERAPEUTIC DIETITIAN.MANPOWER DEVELOPMENT SPECIALIST MANAGER [address] [place] [address] PCP - General Family Medicine 07/07/24 No, Referral Referring 01/31/19 [place] [address] [place], [place] 9412726 Primary Staff Physician Cardiology 07/15/21 Carla Burdick MD [address] [place] [address] Primary Staff Physician Cardiology 03/03/22 Sonny Lund MD [address] [place] [address] Hematology/Oncology 04/22/22 Deysi Nicholson, THERAPEUTIC DIETITIAN.MANPOWER DEVELOPMENT SPECIALIST MANAGER [address] [place] [address] [facility] 06/09/24 Sandra Bell THERAPEUTIC DIETITIAN.MANPOWER DEVELOPMENT SPECIALIST MANAGER [address] [place] [address] [facility] 06/09/24 Supervisor Newspaper Deliveries Relationship Specialty Start Date End Date Deysi Nicholson, THERAPEUTIC DIETITIAN.MANPOWER DEVELOPMENT SPECIALIST MANAGER [address] [place] [address] PCP - General Family Medicine 07/07/24 No, Referral Referring 01/31/19 [place] [address] [place], [place] 1006426 Primary Staff Physician Cardiology 07/15/21 Carla Burdick MD [address] [place], [place] 475421 Primary Staff Physician Cardiology 03/03/22 Sonny Lund MD [address] [place] [address] Hematology/Oncology 04/22/22 Deysi Nicholson, TERI.MANPOWER DEVELOPMENT SPECIALIST MANAGER [address] [place] [address] Home Care Companion Family Medicine 06/09/24 Sandra Bell THERAPEUTIC DIETITIAN.MANPOWER DEVELOPMENT SPECIALIST MANAGER [address] [place], [place] 376201 Home Care Companion Family Medicine 06/09/24 Supervisor Newspaper Deliveries Relationship Specialty Start Date End Date Deysi Nicholson, TERI.MANPOWER DEVELOPMENT SPECIALIST MANAGER [address] [place], [place] 460222 [phone] PCP - General Family Medicine 07/07/24 No, Referral Referring 01/31/19 [place] [address] [place] [address] Primary Staff Physician Cardiology 07/15/21 Carla Burdick MD [address] [place] [address] Primary Staff Physician Cardiology 03/03/22 Sonny Lund MD [address] [place] [address] Hematology/Oncology 04/22/22 Deysi Nicholson APRN.MANPOWER DEVELOPMENT SPECIALIST MANAGER [address] [place] [address] Home Care Companion Family Medicine 06/09/24 Sandra Bell APRN.MANPOWER DEVELOPMENT SPECIALIST MANAGER [address] [place] [address] [facility] 06/09/24 Supervisor [employer]iver[employer] Relationship Specialty Start Date End Date Deysi Nicholson APRN.MANPOWER DEVELOPMENT SPECIALIST MANAGER [address] [place] [address] PCP - General Family Medicine 07/07/24 No, Referral Referring 01/31/19 [place] [address] [address] [place], [place] [id number] Primary Staff Physician Cardiology 07/15/21 Carla Burdick MD [address] [place] [address] Primary Staff Physician Cardiology 03/03/22 Sonny Lund MD [address] [place] [address] Hematology/Oncology 04/22/22 Deysi Nicholson APRN.MANPOWER DEVELOPMENT SPECIALIST MANAGER [address] [place] [address] [facility] 06/09/24 Sandra Bell THERAPEUTIC DIETITIAN.MANPOWER DEVELOPMENT SPECIALIST MANAGER [address] [place] [address] Home Care Companion Family [facility] 06/09/24 Supervisor Newspaper Deliveries Relationship Specialty Start Date End Date Deysi Nicholson APRN.MANPOWER DEVELOPMENT SPECIALIST MANAGER [address] [place], [place] [phone] PCP - General Family Medicine 07/07/24 No, Referral Referring 01/31/19 [place] [address] [place] [address] Primary Staff Physician Cardiology 07/15/21 Carla Burdick MD [address], [place] [id number] Primary Staff Physician Cardiology 03/03/22 Deysi Nicholson APRN.MANPOWER DEVELOPMENT SPECIALIST MANAGER [address] [place] [address] Home Care Companion [facility] 06/09/24 Sandra Bell THERAPEUTIC DIETITIAN.MANPOWER DEVELOPMENT SPECIALIST MANAGER [address] [place], [place] [address] [phone] Home Care Companion [facility] 06/09/24 Supervisor Newspaper Deliveries Relationship Specialty Start Date End Date Deysi Nicholson APRN.MANPOWER DEVELOPMENT SPECIALIST MANAGER [address] [place] [address] PCP - General Family Medicine 07/07/24 No, Referral Referring 01/31/19 [place] [address] [place] [address] Primary Staff Physician Cardiology 07/15/21 Carla Burdick MD [address] [place], [place] [phone] Primary Staff Physician Cardiology 03/03/22 Deysi Nicholson APRN.MANPOWER DEVELOPMENT SPECIALIST MANAGER [address] [place] [address] [facility] 06/09/24 Sandra Bell THERAPEUTIC DIETITIAN.MANPOWER DEVELOPMENT SPECIALIST MANAGER [address] [place] [address] [facility] 06/09/24 Supervisor [employer] Deliveries Relationship Specialty Start Date End Date Deysi Nicholson APRN.MANPOWER DEVELOPMENT SPECIALIST MANAGER [address] [place] [address] PCP - General Family Medicine 07/07/24 No, Referral Referring 01/31/19 [place] [address] [address] [place], [place] [phone] Primary Staff Physician Cardiology 07/15/21 Carla Burdick MD [address] [place] [address] Primary Staff Physician Cardiology 03/03/22 Deysi Nicholson APRN.MANPOWER DEVELOPMENT SPECIALIST MANAGER [address] [place] [address] [facility] 06/09/24 Sandra Bell THERAPEUTIC DIETITIAN.MANPOWER DEVELOPMENT SPECIALIST MANAGER [address] [place] [address] [facility] 06/09/24 Supervisor Newspaper Deliveries Relationship Specialty Start Date End Date Deysi Nicholson APRN.MANPOWER DEVELOPMENT SPECIALIST MANAGER [address] [place] [address] PCP - General Family Medicine 07/07/24 No, Referral Referring 01/31/19 [place] [address] [address] [place], [place] [phone] Primary Staff Physician Cardiology 07/15/21 Carla Burdick MD [address] [place] [address] Primary Staff Physician Cardiology 03/03/22 Deysi Nicholson APRN.MANPOWER DEVELOPMENT SPECIALIST MANAGER [address] [place] [address] [facility] 06/09/24 Sandra Bell APRN.MANPOWER DEVELOPMENT SPECIALIST MANAGER [address] [place] [address] [facility] 06/09/24 Goals (unrecognized section and content) Goals [...] BE BASED ON THE PRIMARY CLINICAL RECORDS. [facility] [employer] [facility]. provides no warranty or guarantee of the accuracy or completeness of information in this document.
--- NOTE | 2025-01-07 17:42 | ECHOD_ITS ---
Reason For Study Reason For Study: CHF Procedure This was a 2D Doppler, Color Flow transthoracic echocardiogram. Exam performed portable in patient room. Left Ventricle Normal LV size. D shaped septum in diastole. Moderate concentric left ventricular hypertrophy. The left ventricular ejection fraction is 50 %. Stage 3 diastolic dysfunction. No regional wall motion abnormalities noted. Right Ventricle Moderately dilated right ventricle. ICD or pacer leads identified within the right ventricle. Mild to moderate global right ventricular systolic dysfunction. Atria The left atrium is severely enlarged. The right atrium is moderately enlarged. Mitral Valve Bileaflet diffuse mitral valve thickening. Peak transmitral valve gradient 15 mmHg. Mean transmitral valve gradient 5 mmHg. Moderate (2+) posteriorly directed mitral valve insufficiency. Tricuspid Valve Normal tricuspid valve. Moderate (2+) tricuspid valve insufficiency. Aortic Valve Peak aortic valve gradient 20 mmHg. Mean aortic valve gradient 11 mmHg. Mild (1+) aortic valve insufficiency. Bioprosthetic aortic valve. Pulmonic Valve Normal pulmonic valve. Mild-Moderate (1-2+) pulmonic valve insufficiency. MMode/2D Measurements & Calculations LVIDd: 4.5 cm IVSd: 1.5 cm LVOT diam: 2.0 cm LVIDs: 3.0 cm LVPWd: 1.4 cm LVOT area: 3.2 cm2 RVDd: 5.4 cm FS: 32.3 % LAV(MOD-bp): 96.5 ml RVOT diam: 2.7 cm MVA(traced): 3.2 cm2 LAV(MOD-bp) Indexed: 56.2 ml/m2 LAV(MOD-sp2): 80.9 ml LAV(MOD-sp4): 117.8 ml LVAd ap4: 33.0 cm2 SV(MOD-sp4): 58.3 ml SV(sp4-el): 59.0 ml LVLd ap4: 8.2 cm SI(MOD-sp4): 34.0 ml/m2 EDV(MOD-sp4): 111.5 ml EDV(sp4-el): 112.8 ml LVAs ap4: 21.5 cm2 LVLs ap4: 7.3 cm ESV(MOD-sp4): 53.2 ml ESV(sp4-el): 53.8 ml EF(MOD-sp4): 52.3 % EF(sp4-el): 52.3 % LA dimension(2D): 5.3 cm LA A4 area: 30.5 cm2 RA A4 area: 28.8 cm2 Time Measurements MV dec time: 0.34 sec Doppler Measurements & Calculations MV E max aysha: 185.2 cm/sec MV V2 max: 192.2 cm/sec MV A max aysha: 64.5 cm/sec MV max P.8 mmHg MV dec slope: 545.2 cm/sec2 MV E/A: 2.9 MV V2 mean: 99.5 cm/sec MV mean P.0 mmHg MV V2 VTI: 43.8 cm MVA(VTI): 1.5 cm2 Ao V2 max: 225.8 cm/sec AI max aysha: 453.8 cm/sec LV V1 max: 109.2 cm/sec Ao max P.5 mmHg AI max P.6 mmHg LV V1 max P.8 mmHg Ao V2 mean: 154.1 cm/sec AI dec slope: 448.8 cm/sec2 LV V1 mean P.3 mmHg Ao mean P.5 mmHg AI P1/2t: 296.1 msec LV V1 mean: 71.5 cm/sec Ao V2 VTI: 41.2 cm LV V1 VTI: 20.6 cm AV (velocity ratio): 0.50 LISBETH(I,D): 1.6 cm2 LISBETH(V,D): 1.5 cm2 MR max aysha: 623.4 cm/sec SV(LVOT): 65.5 ml PA V2 max: 96.6 cm/sec MR max P.4 mmHg PA V2 mean: 67.7 cm/sec MR mean aysha: 451.3 cm/sec PA mean PG (full): 1.5 mmHg MR mean P.6 mmHg MR VTI: 200.6 cm PI end-d aysha: 151.6 cm/sec SV(RVOT): 66.7 ml TR max aysha: 374.9 cm/sec TR max P.2 mmHg Qp/Qs: 1.0/1.0 ECHO/Echo Complete Interpretation Summary Normal LV size. The left ventricular ejection fraction is 50 %. Stage 3 diastolic dysfunction. Mean transmitral valve gradient 5 mmHg. Moderate mitral stenosis Heart rate at the time of examination was 79 bpm ICD or pacer leads identified within the right ventricle. D shaped septum in diastole. Moderate concentric left ventricular hypertrophy. Bioprosthetic aortic valve. Mean aortic valve gradient 11 mmHg. Ordering Physician: Radha Heller Performed By: Edy Victor RCS
[2025-01-07] MEDS: 0.9% Saline Lock 10 ML Syringe IV ×2 (18:24→20:30)
[2025-01-07] MEDS: Heparin Injection (Vial) 5,000 UNIT/ML VIAL 5000 UNIT SC (20:29)
[2025-01-07] MEDS: Metoprolol(XL)Succ 50 MG Tablet PO (21:38)
--- NOTE | 2025-01-07 22:53 | CT_ITS ---
PROCEDURE: STROKE BRAIN/HEAD WITHOUT CONT 01/07/2025 REASON FOR EXAM: STROKE ALERT TECHNIQUE: STROKE BRAIN/HEAD WITHOUT CONT Coronal and Sagittal reconstruction series were provided. One or more dose reduction techniques were used (e.g., Automated exposure control, adjustment of the mA and/or kV according to patient size, use of iterative reconstruction technique. RADIATION DOSE SUMMARY: CTDlvol: 44.99, 22.92 in 15.89 mGy DLP: 1818.71 mGycm FINDINGS: Brain: No acute intra-axial hemorrhage. No extra-axial hemorrhage. No mass, mass effect or midline shift. Periventricular and deep white matter hypodensities suggest chronic small-vessel ischemic change. And age-related process. CSF Spaces: Mild prominent ventricles and sulci suggest involutional change. Sinuses/Mastoids: Predominantly clear. Bones: No aggressive bony process. CT/STROKE Brain/Head without Cont IMPRESSION: No intra-axial or extra-axial hemorrhage. No acute process. Age-related changes of involution and chronic small-vessel ischemic disease Navigator to call report. 11:17 p.m. Reading [facility]
--- NOTE | 2025-01-07 23:08 | CT_ITS ---
PROCEDURE: STROKE CTA HEAD AND NECK W/CON 01/07/2025 REASON FOR EXAM: STROKE ALERT, L FACIAL DROOP, L LEG ATAXIA TECHNIQUE: STROKE CTA HEAD AND NECK W/CON Multiplanar Sagittal and Coronal images were obtained. CONTRAST: Isovue 370 VOLUME: 100 mL One or more dose reduction techniques were used (e.g., Automated exposure control, adjustment of the mA and/or kV according to patient size, use of iterative reconstruction technique). RADIATION DOSE SUMMARY: CTDlvol: 44.99 mGy DLP: 880.47 mGycm COMPARISON: No previous CTA FINDINGS: Aortic Arch: Unremarkable Brachiocephalic and Subclavians: Occasional non flow-limiting calcific plaque RIGHT Carotid: Right CCA: Minimal limited volume of bifurcation plaque. No flow limiting stenosis. Right ICA: No flow-limiting stenosis. Maximum stenosis (NASCET): <50% % Right ECA: <70% proximal ECA plaque LEFT Carotid: Left CCA: < 50% stenosis resulting from calcific bulb plaque Left ICA: Patent Maximum stenosis (NASCET): <50% Left ECA: Proximal plaque. No flow-limiting stenosis. Vertebrals: Codominant. RIGHT Vertebral: Patent unremarkable. LEFT Vertebral: Patent. Unremarkable. Anatomy: Standard Aneurysm or avm: No acute aneurysm. Evidence of previous aneurysm clip. Anterior cerebral arteries: Clip location possibly anterior communicating Middle cerebral arteries: Patent Basilar artery: Normal course and caliber. Posterior cerebral arteries: Patent bilaterally. Other major branches of the posterior circulation: Patent Major venous structures: Patent Other findings: Neck: NEGATIVE lungs: Limited images are negative. Bones: Unremarkable. CT/STROKE CTA Head AND Neck W/Con IMPRESSION: BILATERAL CALCIFIC PLAQUE, PRIMARILY AT THE BIFURCATION BILATERALLY LESS THAN 5 0% STENOSIS. OCCASIONALLY OTHER PLAQUES ARE SEEN BUT NON FLOW LIMITING. NO LARGE VESSEL OCCLUSION. Requested contact with the referring physician at 11:55 p.m. verbal report to anton Vora at 12:05 a.mCoty Reading Location[facility]
--- NOTE | 2025-01-07 23:35 | PCM.HOSP.N ---
Hospitalist Note Stroke alert was called overhead at approximately 10:50 PM after patient was noted to have Left facial droop in addition to weakness in her Left lower extremity. She was noted to have a chronic Left facial droop with the previous nurse unavailable to pinpoint prior time of normal neurologic function. Nevertheless, she underwent CT scan of the head without contrast and CTA of the head and neck with IV contrast that were negative for acute pathologic changes. Notably patient is already on aspirin, clopidogrel and atorvastatin which will be continued. She underwent evaluation by the [facility] teleneurology stroke team with no significant suspicion for acute neurologic insult. She has a pacemaker in place and an investigation will be made to see if it is MRI compatible. She will undergo MRI of the brain without contrast in the morning if her pacemaker is compatible. If not she will repeat her head CT in 24 hours as per neurology recommendations. WIRE FRAME DIPPER was updated with plan. [facility] Imaging Services [address] [place] [address] STROKE Brain/Head without Cont MR#: [id number] Acct: [id number] Name: YAO SANCHES SCOTTIE Rep #: [id number] : 1945 F [id number] From: Jonathan Paul DO PCP: JARROD Cantu Status: ADM IN Study: STROKE Brain/Head without Cont Date of Exam: 01/07/25 Exam# [id number] Ordering Dr: Ananda Ha DO PROCEDURE: STROKE BRAIN/HEAD WITHOUT CONT 01/07/2025 REASON FOR EXAM: STROKE ALERT TECHNIQUE: STROKE BRAIN/HEAD WITHOUT CONT Coronal and Sagittal reconstruction series were provided. One or more dose reduction techniques were used (e.g., Automated exposure control, adjustment of the mA and/or kV according to patient size, use of iterative reconstruction technique. RADIATION DOSE SUMMARY: CTDlvol: 44.99, 22.92 in 15.89 mGy DLP: 1818.71 mGycm FINDINGS: Brain: No acute intra-axial hemorrhage. No extra-axial hemorrhage. No mass, mass effect or midline shift. Periventricular and deep white matter hypodensities suggest chronic small-vessel ischemic change. And age-related process. CSF Spaces: Mild prominent ventricles and sulci suggest involutional change. Sinuses/Mastoids: Predominantly clear. Bones: No aggressive bony process. CT/STROKE Brain/Head without Cont IMPRESSION: No intra-axial or extra-axial hemorrhage. No acute process. Age-related changes of involution and chronic small-vessel ischemic disease Navigator to call report. 11:17 p.m. Reading Location: [facility] CC: JARROD Nicholson; Dr. Ananda Ha DO ~ Circular Saw Operator: Signed [facility] Imaging Services [address] [place] [id number] STROKE CTA Head AND Neck W/Con MR#: [id number] Acct: [id number] Name: YAO SANCHES SCOTTIE Rep #: [id number] : 1945 F [id number] From: Jonathan Paul DO PCP: JARROD Cantu Status: ADM IN Study: STROKE CTA Head AND Neck W/Con Date of Exam: 01/07/25 Exam# [id number] Ordering Dr: Ananda Ha DO PROCEDURE: STROKE CTA HEAD AND NECK W/CON 01/07/2025 REASON FOR EXAM: STROKE ALERT, L FACIAL DROOP, L LEG ATAXIA TECHNIQUE: STROKE CTA HEAD AND NECK W/CON Multiplanar Sagittal and Coronal images were obtained. CONTRAST: Isovue 370 VOLUME: 100 mL One or more dose reduction techniques were used (e.g., Automated exposure control, adjustment of the mA and/or kV according to patient size, use of iterative reconstruction technique). RADIATION DOSE SUMMARY: CTDlvol: 44.99 mGy DLP: 880.47 mGycm COMPARISON: No previous CTA FINDINGS: Aortic Arch: Unremarkable Brachiocephalic and Subclavians: Occasional non flow-limiting calcific plaque RIGHT Carotid: Right CCA: Minimal limited volume of bifurcation plaque. No flow limiting stenosis. Right ICA: No flow-limiting stenosis. Maximum stenosis (NASCET): <50% % Right ECA: <70% proximal ECA plaque LEFT Carotid: Left CCA: < 50% stenosis resulting from calcific bulb plaque Left ICA: Patent Maximum stenosis (NASCET): <50% Left ECA: Proximal plaque. No flow-limiting stenosis. Vertebrals: Codominant. RIGHT Vertebral: Patent unremarkable. LEFT Vertebral: Patent. Unremarkable. Anatomy: Standard Aneurysm or avm: No acute aneurysm. Evidence of previous aneurysm clip. Anterior cerebral arteries: Clip location possibly anterior communicating Middle cerebral arteries: Patent Basilar artery: Normal course and caliber. Posterior cerebral arteries: Patent bilaterally. Other major branches of the posterior circulation: Patent Major venous structures: Patent Other findings: Neck: NEGATIVE lungs: Limited images are negative. Bones: Unremarkable. CT/STROKE CTA Head AND Neck W/Con IMPRESSION: BILATERAL CALCIFIC PLAQUE, PRIMARILY AT THE BIFURCATION BILATERALLY LESS THAN 50% STENOSIS. OCCASIONALLY OTHER PLAQUES ARE SEEN BUT NON FLOW LIMITING. NO LARGE VESSEL OCCLUSION. Requested contact with the referring physician at 11:55 p.m. verbal report to charge nurse Vora at 12:05 a.m. Reading Location[facility] CC: JARROD Nicholson; Dr. Ananda Ha, DO ~ Circular Saw Operator: Signed
[2025-01-08] VITALS (9 sets, daily range): BP systolic 135–151; BP diastolic 50–59; PULSE 75–87; RESP 16–18; TEMP 36.4–36.9; O2SAT 93–99; BMI 26.9
--- NOTE | 2025-01-08 05:04 | CDU_ITS ---
Reason For Study Reason For Study: Evaluate for stenosis Rt. Velocities/BP Lt. Velocities/BP Prox CCA 49.4/6 cm/sec. Prox CCA 41/3.6 cm/sec. Mid CCA 38.1/5 cm/sec. Mid CCA 41/6.9 cm/sec. Dist CCA 36.2/6 cm/sec. Dist CCA 41/5.8 cm/sec. Prox ICA 101.6/24.8 cm/sec. Prox ICA 112/13.3 cm/sec. Mid ICA 74.1/9.8 cm/sec. Mid ICA 82.9/16.9 cm/sec. Dist ICA 64.5/13.3 cm/sec. Dist ICA 70.1/19.3 cm/sec. Rt. ICA/CCA = 2.67. Lt. ICA/CCA = 2.73. Prox ECA 57 cm/sec. Prox ECA 60.8 cm/sec. Rt. Vert. 71.8/13.3 cm/sec. Lt. Vert. 44.3/6.9 cm/sec. Right Extracranial There is heterogeneous, irregular atherosclerotic plaque noted in the right common carotid artery. There is heterogeneous, irregular atherosclerotic plaque noted in the right internal carotid artery. There is heterogeneous, irregular atherosclerotic plaque noted in the right external carotid artery. Antegrade flow is noted in the right vertebral artery. Left Extracranial There is heterogeneous, irregular atherosclerotic plaque noted in the left common carotid artery. There is heterogeneous, irregular atherosclerotic plaque noted in the left internal carotid artery. There is intimal thickening but no significant atherosclerotic plaque noted in the left external carotid artery. Antegrade flow is noted in the left vertebral artery. Procedure Carotid Duplex [id number]. This is a Carotid Duplex examination using B-mode, color flow and specral Doppler. Exam performed portable in patient room. VL/Carotid Duplex Ultrasound Interpretation Summary Mild (<50%) stenosis right extracranial internal carotid. Mild (<50%) stenosis left extracranial internal carotid. Patent and antegrade vertebrals bilaterally. Ordering Physician: Ananda Ha Referring Physician: Deysi Nicholson Performed By: Cayla Perez RVT
[2025-01-08 06:13] LABS: Hematocrit 28.4 % (37-47); Hemoglobin 9.0 g/dL (12.0-15.0); Immature Granulocytes Count 0.020 X10^3/uL (0.0-0.0); Mean Corp Hgb Conc 31.7 g/dL (32-36); Mean Corpuscular Volume 89.3 fL (81-99); Mean Platelet Vol. 9.6 fl (6.2-12.0); NRBC Flagged by Analyzer 0 % (0-5); POSITIVE MORPHOLOGY YES; Platelet Count 155 K/mm3 (150-450); RBC Distribution Width CV 19.8 % (11.6-14.6); RBC Distribution Width SD 64.7 fl (35.1-43.9); Red Blood Count 3.18 M/mm3 (4.2-5.4); White Blood Count 6.3 K/mm3 (4.4-11.0)
[2025-01-08 06:22] LABS: Differential Indicated SCAN CRITERIA MET
[2025-01-08 07:06] LABS: Anion Gap 12 (5-15); BUN 45 mg/dL (4-19); BUN/Creat Ratio 24.9 RATIO (10-20); Calcium,Total 8.8 mg/dL (7.6-11.0); Carbon Dioxide 25.7 mmol/L (21.0-32.0); Chloride 93 mmol/L (98-108); Differential Comment SCANNED; Estimated Creatinine Clearance 23.72 ml/min (50-250); Glucose 129 mg/dL (70-99); Magnesium 2.4 mg/dL (1.5-2.2); Potassium 4.1 mmol/L (3.3-5.1)
[2025-01-08 07:07] LABS: Red Cell Morphology NORM C+C NORMAL (NORM C&C)
[2025-01-08 07:43] LABS: Cholesterol 68 mg/dL (<=200); Low Density Lipoprotein Calc. 26 mg/dL; Triglycerides 69 mg/dL; Very Low Density Lipoprotein 14 mg/dL (5-40); cholesterol:hdl ratio screen 2.38
--- NOTE | 2025-01-08 07:58 | NURSING ---
Part of the Stroke Order Set includes an MRI. Due to the patient having a pacemaker, an MRI may be contraindicated. The patient does not have device information with her at the hospital at this time, however her is bringing her certified ophthalmic medical technician card in later this afternoon/evening 01/08/25. IF compatible the patient should be ordered to have an MRI completed. IF not a [address] scan can be utilized as a substitute.
[2025-01-08] MEDS: Potassium Chloride Oral Tablet 10 MEQ PO (10:27)
[2025-01-08] MEDS: 0.9% Saline Lock 10 ML Syringe IV (10:27)
[2025-01-08] MEDS: Heparin Injection (Vial) 5,000 UNIT/ML VIAL 5000 UNIT SC ×2 (10:28→21:06)
--- NOTE | 2025-01-08 11:55 | CASEMGMT ---
RN CM Face to Face with patient for initial transition planning/care coordination assessment. RN CM introduced self and role at [facility]. Patient lying in bed, alert and oriented. Patient willing to participate in assessment and is able to answer all questions appropriately. Care providers, pharmacy, and demographics verified. Strata: 2 PCP: TALI Nicholson; wants to change PCPs, list provided Specialists: Reynold, elementary principal; Preferred Pharmacy: [facility] Insurance: [employer] [facility] Prescription Benefit: yes Living Will/HPOA: yes, Natanael Yates LNOK: Living Arrangements: Patient lives with in a singles story home with 1 step to enter. Patient states she is independent at home. Transportation: self, DME/HHC: Patient has glucometer and supplies at home. No previous HHC or SNF. Patient wishes to discharge home, denies need for home health at this time. Patient states she has no further needs or concerns at this time. CM to follow for discharge planning needs that may arise. Disposition Plan: Patient to discharge home with family support and follow-up plans in place. Cayla LOPEZ, RN, CM
--- NOTE | 2025-01-08 12:11 | NURSING ---
NIHSS not completed on time as patient was getting a needed echocardiogram. NIHSS completed when ECHO was finished.
--- NOTE | 2025-01-08 14:46 | CASEMGMT ---
Social Work It appears that pt did not have a stroke, PHQ-9 not completed. TARA Diaz
--- NOTE | 2025-01-08 15:14 | STROKE.PNOTE ---
Objective Data Objective Data Vital Signs: Vital Signs Temp Pulse Resp BP Pulse Ox O2 Del Method 97.6 F L 81 17 151/55 H 97 Room Air 01/08/25 12:00 01/08/25 12:00 01/08/25 12:00 01/08/25 12:00 01/08/25 12:00 01/08/25 12:00 Oxygen Delivery Method Room Air Weight: 68.8 kg Body Mass Index (BMI) 26.9 Intake & Output: Intake and Output for Last 24 Hours 01/06/25 01/07/25 01/08/25 23:59 23:59 23:59 Intake Total 120 / 120 Output Total 675 / 675 Balance 120 / 120 -675 / -675 Lab / Micro Data 01/08/25 06:06 01/08/25 06:06 Labs: Laboratory Results - last 24 hr 01/07/25 14:54: Troponin T Hi Sens 2 Hr 68 H* 01/07/25 18:04: POC Glucose 104 01/07/25 22:51: POC Glucose 166 H 01/08/25 06:06: WBC 6.3, RBC 3.18 L, Hgb 9.0 L, Hct 28.4 L, MCV 89.3, MCH 28.3, MCHC 31.7 L, RDW Std Deviation 64.7 H, RDW Coeff of Yonis 19.8 H, Plt Count 155, MPV 9.6, Immature Gran % (Auto) 0.300, Neut % (Auto) 47.3, Lymph % (Auto) 33.8, [place] % (Auto) 15.5 H, Eos % (Auto) 2.1, Baso % (Auto) 1.0, Absolute Neuts (auto) 3.0, Absolute Lymphs (auto) 2.11, Nucleated RBC % 0, Differential Comment SCANNED, Platelet Estimate ADEQUATE, RBC Morphology NORM C+C, Sodium 130 L, Potassium 4.1, Chloride 93 L, Carbon Dioxide 25.7, Anion Gap 12, BUN 45 H, Creatinine 1.79 H, Estim Creat Clear Calc 23.72 L, Est GFR (MDRD) Non-Af 28 L, BUN/Creatinine Ratio 24.9 H, Glucose 129 H, Hemoglobin A1c 7.0 H, Calcium 8.8, Magnesium 2.4 H, Triglycerides 69, Cholesterol 68, LDL Cholesterol, Calc 26, VLDL Cholesterol 14, HDL Cholesterol 29 L, Cholesterol/HDL Ratio 2.38, TSH 4.850 H 01/08/25 06:54: POC Glucose 124 H 01/08/25 12:14: POC Glucose 136 H Radiography Diagnostic Testing: Radiology Impression Echocardiogram 01/07/25 17:42 Interpretation Summary Normal LV size. The left ventricular ejection fraction is 50 %. Stage 3 diastolic dysfunction. Mean transmitral valve gradient 5 mmHg. Moderate mitral stenosis Heart rate at the time of examination was 79 bpm ICD or pacer leads identified within the right ventricle. D shaped septum in diastole. Moderate concentric left ventricular hypertrophy. Bioprosthetic aortic valve. Mean aortic valve gradient 11 mmHg. Ordering Physician: Radha Heller Performed By: Edy Victor RCS Brain CT 01/07/25 22:53 IMPRESSION: No intra-axial or extra-axial hemorrhage. No acute process. Age-related changes of involution and chronic small-vessel ischemic disease Navigator to call report. 11:17 p.m. Reading Location: [facility] Head/Neck CTA 01/07/25 23:08 IMPRESSION: BILATERAL CALCIFIC PLAQUE, PRIMARILY AT THE BIFURCATION BILATERALLY LESS THAN 50% STENOSIS. OCCASIONALLY OTHER PLAQUES ARE SEEN BUT NON FLOW LIMITING. NO LARGE VESSEL OCCLUSION. Requested contact with the referring physician at 11:55 p.m. verbal report to charge nurse Vora at 12:05 a.m. Reading Location: [facility] Carotid Duplex 01/08/25 05:04 Interpretation Summary Mild (<50%) stenosis right extracranial internal carotid. Mild (<50%) stenosis left extracranial internal carotid. Patent and antegrade vertebrals bilaterally. Ordering Physician: Ananda Ha Referring Physician: Deysi Nicholson Performed By: Cayla Perez, RVT Physical Exam Neuro Neuro Narrative: General: The patient appears nutritionally appropriate, well-groomed, and appears comfortable in no acute distress. Mental Status: The patient’s mental status was normal including orientation. Language was intact. Cranial nerves: Visual rosas full, and extra-ocular motion was intact. Mild facial asymmetry noted (nasolabial fold flattening on right noted), but patient and at bedside reports this is her baseline. There was no dysarthria. Motor: Normal strength and tone in all four extremities. No pronator drift. Sensation: Intact light touch bilaterally, no extinction. Coordination: Bilateral finger to nose was normal. There was no dysmetria. Gait: deferred Subject: Neurology Subjective Patient reports she feels normal this AM. Patient and her both report her facial asymmetry is baseline. Assessment and Plan: Stroke Assessment/Plan YAO SANCHES is a 79 LH F with a history of HTN, HL, DM, WVR, PPM, Afib s/p watchman, PVD, CHF who was admitted 01/07/25 for CHF. Overnight stroke alert was called for facial droop. CT brain negative for acute changes. CTA head/neck negative. Telestroke showed NIHSS-1. Notes report left facial droop, but on my view right nasolabial fold flatterning is noted. Patient and confirm facial asymmetry is baseline. Patient denies any new complaints and reports she is at baseline. agrees and confirms her facial asymmetry is baseline. I re-asked multiple times to ensure the facial asymmetry is not new, and both confirmed that her face has baseline asymmetry. She reports it runs in her family and her mother and sister have the same facial asymmetry. Neurological examination shows facial asymmetry at rest, with mild nasolabial fold flatterning on right face, but symmetric smile, NIHSS-1 (RF-1) ASSESSMENT/PLAN: Facial asymmetry (patient reports baseline and chronic) 1) No further stroke work-up recommended. NIHSS NIHSS Nursing Documentation NIHSS Nursing Documentation: NIHSS: Ischemic Stroke/TIA Start: 01/08/25 00:49 Freq: [id number] Status: Complete Protocol: Activity Type Activity Date Activity User E-sign Co-sign Detail Recorded Client Recorded Date Recorded By Document 01/08/25 03:22 [id number] 01/08/25 03:24 01/08/25 03:22 NIH Stroke Scale [NIHSS] A score of 0 is "normal" or asymptomatic . Total possible score is 42. Inpatient: RN or Physician to activate a stroke alert for onset of new stroke symptoms or with NIHSS increase >/= 3 points. Following change in neurological status, NIHSS will be performed per physician order or more frequently PRN. -1a. Level of Consciousness 0 - Alert; keenly responsive -1b. LOC Questions 0 - Answers BOTH questions correctly -1c. LOC Commands 0 - Performs BOTH tasks correctly -2. Best Gaze 0 - Normal -3. Visual 0 - No visual loss -4. Facial Palsy 1 - Minor paralysis ( flattened nasolabial fold , asymmetry on smiling) -5a. Left Arm 0 - No drift; arm holds 90 ( or 45) degrees for full 10 seconds -5b. Right Arm 0 - No drift; arm holds 90 ( or 45) degrees for full 10 seconds -6a. Left Leg 0 - No drift; leg holds 30- degree position for full 5 seconds -6b. Right Leg 0 - No drift; leg holds 30- degree position for full 5 seconds -7. Limb Ataxia 0 - Absent -8. Sensory 0 - Normal; no sensory loss -9. Best Language 0 - No aphasia; normal -10. Dysarthria 0 - Normal -11. Extinction and Inattention 0 - No abnormality -Total 1 Query Text:A score of 0 is "normal" or asymptomatic. Total possible score is 42 . ED: Notify Physician for NIHSS increase by > / = 3 points. Inpatient: RN or Physician to activate a stroke alert for NIHSS increase of > / = 3 points. Coma Scale [Assess] -Eye Opening Spontaneous -Motor Obeys Commands -Verbal Oriented [Total] -Coma Scale Total 15 NIHSS: Ischemic Stroke/TIA Start: 01/08/25 05:04 Text: For PCU Patients: NIH and Neuro Check every 4 Status: Complete hours, PRN and with change in RN caregiver. Freq: [id number] Protocol: Activity Type Activity Date Activity User E-sign Co-sign Detail Recorded Client Recorded Date Recorded By Document 01/08/25 12:00 [id number] 01/08/25 12:10 01/08/25 12:00 NIH Stroke Scale [NIHSS] A score of 0 is "normal" or asymptomatic . Total possible score is 42. Inpatient: RN or Physician to activate a stroke alert for onset of new stroke symptoms or with NIHSS increase >/= 3 points. Following change in neurological status, NIHSS will be performed per physician order or more frequently PRN. -1a. Level of Consciousness 0 - Alert; keenly responsive -1b. LOC Questions 0 - Answers BOTH questions correctly -1c. LOC Commands 0 - Performs BOTH tasks correctly -2. Best Gaze 0 - Normal -3. Visual 0 - No visual loss -4. Facial Palsy 0 - Normal symmetrical movements -5a. Left Arm 0 - No drift; arm holds 90 ( or 45) degrees for full 10 seconds -5b. Right Arm 0 - No drift; arm holds 90 ( or 45) degrees for full 10 seconds -6a. Left Leg 0 - No drift; leg holds 30- degree position for full 5 seconds -6b. Right Leg 0 - No drift; leg holds 30- degree position for full 5 seconds -7. Limb Ataxia 0 - Absent -8. Sensory 0 - Normal; no sensory loss -9. Best Language 0 - No aphasia; normal -10. Dysarthria 0 - Normal -11. Extinction and Inattention 0 - No abnormality -Total 0 Query Text:A score of 0 is "normal" or asymptomatic. Total possible score is 42 . ED: Notify Physician for NIHSS increase by > / = 3 points. Inpatient: RN or Physician to activate a stroke alert for NIHSS increase of > / = 3 points. Coma Scale [Assess] -Eye Opening Spontaneous -Motor Obeys Commands -Verbal Oriented [Total] -Coma Scale Total 15 NIHSS 1a. Level of Consciousness: 0 - Alert; keenly responsive 1b. LOC Questions: 0 - Answers BOTH questions correctly 1c. LOC Commands: 0 - Performs BOTH tasks correctly 2. Best Gaze: 0 - Normal 3. Visual: 0 - No visual loss 4. Facial Palsy: 1 - Minor paralysis (flattened nasolabial fold, asymmetry on smiling) 5a. Left Arm: 0 - No drift; arm holds 90 (or 45) degrees for full 10 seconds 5b. Right Arm: 0 - No drift; arm holds 90 (or 45) degrees for full 10 seconds 6a. Left Le - No drift; leg holds 30-degree position for full 5 seconds 6b. Right Le - No drift; leg holds 30-degree position for full 5 seconds 7. Limb Ataxia: 0 - Absent 8. Sensory: 0 - Normal; no sensory loss 9. Best Language: 0 - No aphasia; normal 10. Dysarthria: 0 - Normal 11. Extinction and Inattention: 0 - No abnormality Total: 1
--- NOTE | 2025-01-08 15:36 | PCM.DC ---
Discharge Instructions Diet Discharge Diet: 1800 Calorie Control Diet DC O2, CPAP, BIPAP needs Home O2 Discharge instructions: No Dressing / Incision Discharge Activity: Return to Normal Activity Weight Bearing Status: Full weight bearing Follow Up Care Test Results: Test results from this visit will be discussed in further detail at your follow-up appointment, if applicable. Discharge Plan Admission Admit Date/Time: 01/07/25 16:29 Primary Reason for Your Visit: chf Attending Provider: Dylon Stovall Primary Care Provider: Deysi Nicholson NP Consulting Providers: Teo Blue; Lindsey Francisco; Yamileth Hassan; Josefina Arrieta; Charley Berger; Tacos Edouard; Sydney Jarvis; Marty Hopkins; Tai Chavez; Jose John; Karyna Gates; Panda Hein; Chelsi Pulido; Lili Newman; Tulio Pittman; Jonathan Funez; Red Lucia; Gurpreet Geronimo; Noris Brock; Jessa Lee; Radha Heller; Jeremy Mcgarry Discharge Orders/Prescriptions Prescriptions: New potassium chloride 10 mEq Tablet,Er Particles/Crystals 20 meq PO DAILYCM Qty: 60 0RF bumetanide 2 mg tablet 2 mg PO BID Qty: 60 0RF metolazone 5 mg tablet 5 mg PO DAILY Qty: 30 0RF Continued metoprolol succinate 25 mg tablet extended release 24 hr 50 mg PO BID Patient Comments: TAKE 1 TABLET BY MOUTH EVERY DAY aspirin 81 mg capsule 81 mg PO DAILY clopidogrel 75 mg tablet 75 mg PO DAILY ferrous sulfate [Feosol] 325 mg (65 mg iron) tablet 325 mg PO DAILY atorvastatin 40 mg tablet 40 mg PO DAILY pantoprazole 40 mg tablet,delayed release (DR/EC) 40 mg PO BID psyllium 3.4 gram/5.8 gram powder 3.4 g PO BID spironolactone 25 mg tablet 12.5 mg PO BID Discontinued furosemide 20 MG tablet 40 mg PO BID metolazone 2.5 mg tablet 2.5 mg PO DAILY PRN (Reason: edema) potassium chloride 10 mEq tablet extended release 10 meq PO DAILY Referrals / Follow Up: Narinder Huynh MD [Med Staff - Active Staff] - See Referral Note (February 05, 2025 at 9 AM, please arrive 15 minutes early to fill out paperwork) Mars Hernandez MD [Non-Staff] - Deysi Nicholson NP, [employer] [Primary Care Provider] - Disposition Disposition (needs filled in before D/C Order can be placed): Home, Self Care
[2025-01-08] MEDS: Furosemide 500 MG in Empty Viaflex 50 mL 1 EACH CONT INF (16:45)
[2025-01-08] MEDS: Potassium Chloride Oral Tablet 20 MEQ PO (16:47)
--- NOTE | 2025-01-08 16:55 | PCM.CONS.R ---
Assessment & Plan Assessment/Plan (1) Chronic kidney disease, stage 3b: PLAN: Reviewed records from [facility] where her primary care physician is, from care everywhere from [facility] During her hospitalization in October, [facility] where she was admitted in December. She has had unfortunately 3 hospitalizations within the last 3 months. says that she is having mental stress from all these hospitalizations. Events include #1. Heart failure. Looks like diastolic. EF is okay. BNP has been consistently in the thousands. Reviewed medication list, she was supposed to be on Lasix 80 mg / 40 mg but looks like she may be taking 40 mg twice a day. Spironolactone 25 mg once a day. Metolazone 2.5 mg as needed is on the medication list but both patient and have confirmed that she is not taking that. Farxiga is on the medication list but she thinks that she could not take it because it was very expensive. Baseline weight is around 139 pounds. As high as 154 pounds. Discussed with hospitalist. To be started on Lasix drip today. Eventually plan is to send her home with either Lasix 80 mg twice a day or Bumex 2 mg twice a day. Metolazone for any weight more than 144 pounds. Spironolactone as before. I have asked them to call their insurance company about the alternatives for Farxiga including Jardiance/Steglatro. If any of them is reasonably priced it probably works well for her to take. 2. Renal failure. Baseline creatinine appears to be around 1.3-1.4. She had acute renal failure, required CRRT for about 1 day. Recovered renal function. Most often creatinine in the last 3 months has been between 1.8-2.0. No significant proteinuria. 3. Atherosclerosis. 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 She also has left-sided renal artery stenosis which was confirmed on repeat renal Doppler. She recently saw Dr. Shasta Pak and no intervention was planned since it was unilateral stenosis. Discussed with . We reviewed the medication list, daily weights. Discussed with hospitalist about plan (2) MONIQUE (acute kidney injury): HPI Consult Data Date of Consult: 01/08/25 HPI Narrative Reason for Consultation: monique vs ckd 3b HPI Narrative: YAO SANCHES, is a 79 F who presents to the hospital with shortness of breath. Nephrology on consultation in view of kidney disease. Somewhat complicated course recently. She is originally from [place], was in [place] for the winter, had a long hospitalization in [facility]. History of congestive heart failure with diastolic dysfunction, BNP has been consistently high. Was seeing cardiology at [facility]. Has been on diuretic, despite that worsening heart failure. Apparently gained more than 10 pounds. Baseline weight is around 140 pounds, went up to 154 pounds. Being started on Lasix drip. [facility] Medical History (Updated 01/08/25 @ 16:[address] Jeremy Mcgarry MD) Skin tear of left forearm without complication Skin cancer Cardiac arrhythmia CHF exacerbation Brain aneurysm Anxiety Family history of brain aneurysm PAD (peripheral artery disease) PAF (paroxysmal atrial fibrillation) Obesity (BMI 30.0-34.9) Laceration of right middle finger Heart disease Diabetes History of cancer Fever HTN (hypertension) Diabetes mellitus type 2 in obese Chest pain, musculoskeletal HLD (hyperlipidemia) URI (upper respiratory infection) Bronchospasm with bronchitis, acute Home Medications Medication Instructions Recorded Last Taken Type metoprolol succinate 25 mg 50 mg PO BID heart 02/13/21 Unknown History tablet,extended release 24 hr aspirin 81 mg capsule 81 mg PO DAILY 01/07/25 Unknown History atorvastatin 40 mg tablet 40 mg PO DAILY daily 01/07/25 Unknown History clopidogrel 75 mg tablet 75 mg PO DAILY 01/07/25 Unknown History ferrous sulfate 325 mg (65 mg 325 mg PO DAILY 01/07/25 Unknown History iron) tablet (Feosol) pantoprazole 40 mg tablet,delayed 40 mg PO BID stomach 01/07/25 Unknown History release psyllium 3.4 gram/5.8 gram oral 3.4 g PO BID daily 01/07/25 Unknown History powder spironolactone 25 mg tablet 12.5 mg PO BID daily 01/07/25 Unknown History bumetanide 2 mg tablet 2 mg PO BID #60 tabs 01/08/25 Unknown Rx metolazone 5 mg tablet 5 mg PO DAILY #30 tabs 01/08/25 Unknown Rx potassium chloride 10 mEq 20 meq (2 x 10 mEq) PO DAILYCM #60 01/08/25 Unknown Rx tablet,extended release(part/cryst) tabs Allergy/AdvReac Type Severity Reaction Status Date / Time propofol AdvReac Mild Low blood Verified 01/07/25 12:47 pressure Family History Father Heart disease High cholesterol Mother Heart disease Surgical History history skin cancer surgery history bilateral ear surgeries History of hysterectomy H/O aortic valve replacement Social History Smoking Status: Never smoker alcohol intake: current alcohol intake frequency: a few times a month substance use type: does not use ROS ROS Narrative Negative except above Physical Exam Narrative Alert awake oriented x 3 no obvious distress no pallor no icterus no JVD s1s2 no murmurs lungs clear abdomen soft no organomegaly ++ edema no cyanosis Lab / Micro Data 01/08/25 06:06 01/08/25 06:06 Labs: Laboratory Results - last 24 hr 01/07/25 18:04: POC Glucose 104 01/07/25 22:51: POC Glucose 166 H 01/08/25 06:06: WBC 6.3, RBC 3.18 L, Hgb 9.0 L, Hct 28.4 L, MCV 89.3, MCH 28.3, MCHC 31.7 L, RDW Std Deviation 64.7 H, RDW Coeff of Yonis 19.8 H, Plt Count 155, MPV 9.6, Immature Gran % (Auto) 0.300, Neut % (Auto) 47.3, Lymph % (Auto) 33.8, [place] % (Auto) 15.5 H, Eos % (Auto) 2.1, Baso % (Auto) 1.0, Absolute Neuts (auto) 3.0, Absolute Lymphs (auto) 2.11, Nucleated RBC % 0, Differential Comment SCANNED, Platelet Estimate ADEQUATE, RBC Morphology NORM C+C, Sodium 130 L, Potassium 4.1, Chloride 93 L, Carbon Dioxide 25.7, Anion Gap 12, BUN 45 H, Creatinine 1.79 H, Estim Creat Clear Calc 23.72 L, Est GFR (MDRD) Non-Af 28 L, BUN/Creatinine Ratio 24.9 H, Glucose 129 H, Hemoglobin A1c 7.0 H, Calcium 8.8, Magnesium 2.4 H, Triglycerides 69, Cholesterol 68, LDL Cholesterol, Calc 26, VLDL Cholesterol 14, HDL Cholesterol 29 L, Cholesterol/HDL Ratio 2.38, TSH 4.850 H 01/08/25 06:54: POC Glucose 124 H 01/08/25 12:14: POC Glucose 136 H Imaging Radiology Impression Echocardiogram 01/07/25 17:42 Interpretation Summary Normal LV size. The left ventricular ejection fraction is 50 %. Stage 3 diastolic dysfunction. Mean transmitral valve gradient 5 mmHg. Moderate mitral stenosis Heart rate at the time of examination was 79 bpm ICD or pacer leads identified within the right ventricle. D shaped septum in diastole. Moderate concentric left ventricular hypertrophy. Bioprosthetic aortic valve. Mean aortic valve gradient 11 mmHg. Ordering Physician: Radha Heller Performed By: Edy Victor RCS Brain CT 01/07/25 22:53 IMPRESSION: No intra-axial or extra-axial hemorrhage. No acute process. Age-related changes of involution and chronic small-vessel ischemic disease Navigator to call report. 11:17 p.m. Reading Location: [facility] Head/Neck CTA 01/07/25 23:08 IMPRESSION: BILATERAL CALCIFIC PLAQUE, PRIMARILY AT THE BIFURCATION BILATERALLY LESS THAN 50% STENOSIS. OCCASIONALLY OTHER PLAQUES ARE SEEN BUT NON FLOW LIMITING. NO LARGE VESSEL OCCLUSION. Requested contact with the referring physician at 11:55 p.m. verbal report to charge nurse Vora at 12:05 a.m. Reading Location: [facility] Carotid Duplex 01/08/25 05:04 Interpretation Summary Mild (<50%) stenosis right extracranial internal carotid. Mild (<50%) stenosis left extracranial internal carotid. Patent and antegrade vertebrals bilaterally. Ordering Physician: Ananda Ha Referring Physician: Deysi Nicholson Performed By: Cayla Perez RVT
--- NOTE | 2025-01-08 18:49 | PN.HOSP_ITS ---
Reason for Visit Reason for Visit: Diagnoses Transient cerebral ischemic attack, unspecified (01/07/25) Heart failure, unspecified (01/07/25) Acute kidney failure, unspecified (01/07/25) Chronic kidney disease, stage 3b (01/07/25) Subjective Subjective Patient was seen and examined today, I talked with her who was in the room at the time of my examination, patient's echocardiogram today showed a normal EF with no significant valvular heart disease. There was no evidence of severe pulmonary hypertension. Patient has pitting edema in the thighs bilaterally. Patient's creatinine is elevated and I had nephrology see the patient, nephrology reviewed her medical record and found that the patient has stenosis in one of her renal arteries, it appears that the patient declined any intervention for this. Patient was also hospitalized recently [facility] for congestive heart failure. 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 Huynh as an outpatient. Nephrology recommended that the patient go on the equivalent of 80 mg of Lasix twice a day and metolazone 5 mg daily as well as potassium 20 mEq daily at the time of discharge. Objective Data Objective Data Vital Signs: Vital Signs Temp Pulse Resp BP Pulse Ox O2 Del Method 98.2 F 75 18 149/53 H 99 Room Air 01/08/25 16:53 01/08/25 16:53 01/08/25 16:53 01/08/25 16:53 01/08/25 16:53 01/08/25 16:56 Oxygen Delivery Method Room Air Weight: 68.8 kg Body Mass Index (BMI) 26.9 Intake & Output: Intake and Output for Last 24 Hours 01/06/25 01/07/25 01/08/25 23:59 23:59 23:59 Intake Total 120 / 120 Output Total 675 / 675 Balance 120 / 120 -675 / -675 Lab / Micro Data 01/08/25 06:06 01/09/25 05:38 Labs: Laboratory Results - last 24 hr 01/07/25 22:51: POC Glucose 166 H 01/08/25 06:06: WBC 6.3, RBC 3.18 L, Hgb 9.0 L, Hct 28.4 L, MCV 89.3, MCH 28.3, MCHC 31.7 L, RDW Std Deviation 64.7 H, RDW Coeff of Yonis 19.8 H, Plt Count 155, MPV 9.6, Immature Gran % (Auto) 0.300, Neut % (Auto) 47.3, Lymph % (Auto) 33.8, Humphreys % (Auto) 15.5 H, Eos % (Auto) 2.1, Baso % (Auto) 1.0, Absolute Neuts (auto) 3.0, Absolute Lymphs (auto) 2.11, Nucleated RBC % 0, Differential Comment SCANNED, Platelet Estimate ADEQUATE, RBC Morphology NORM C+C, Sodium 130 L, Potassium 4.1, Chloride 93 L, Carbon Dioxide 25.7, Anion Gap 12, BUN 45 H, C reatinine 1.79 H, Estim Creat Clear Calc 23.72 L, Est GFR (MDRD) Non-Af 28 L, B UN/Creatinine Ratio 24.9 H, Glucose 129 H, Hemoglobin A1c 7.0 H, Calcium 8.8, M agnesium 2.4 H, Triglycerides 69, Cholesterol 68, LDL Cholesterol, Calc 26, VLDL Cholesterol 14, HDL Cholesterol 29 L, Cholesterol/HDL Ratio 2.38, TSH 4.850 H 01/08/25 06:54: POC Glucose 124 H 01/08/25 12:14: POC Glucose 136 H 01/08/25 16:43: POC Glucose 184 H Radiography Diagnostic Testing: Radiology Impression Echocardiogram 01/07/25 17:42 Interpretation Summary Normal LV size. The left ventricular ejection fraction is 50 %. Stage 3 diastolic dysfunction. Mean transmitral valve gradient 5 mmHg. Moderate mitral stenosis Heart rate at the time of examination was 79 bpm ICD or pacer leads identified within the right ventricle. D shaped septum in diastole. Moderate concentric left ventricular hypertrophy. Bioprosthetic aortic valve. Mean aortic valve gradient 11 mmHg. Ordering Physician: Radha Heller Performed By: Edy Victor RCS Brain CT 01/07/25 22:53 IMPRESSION: No intra-axial or extra-axial hemorrhage. No acute process. Age-related changes of involution and chronic small-vessel ischemic disease Navigator to call report. 11:17 p.m. Reading Location: [facility] Head/Neck CTA 01/07/25 23:08 IMPRESSION: BILATERAL CALCIFIC PLAQUE, PRIMARILY AT THE BIFURCATION BILATERALLY LESS THAN 50% STENOSIS. OCCASIONALLY OTHER PLAQUES ARE SEEN BUT NON FLOW LIMITING. NO LARGE VESSEL OCCLUSION. Requested contact with the referring physician at 11:55 p.m. verbal report to charge nurse Vielka at 12:05 a.m. Reading Location: [facility] Carotid Duplex 01/08/25 05:04 Interpretation Summary Mild (<50%) stenosis right extracranial internal carotid. Mild (<50%) stenosis left extracranial internal carotid. Patent and antegrade vertebrals bilaterally. Ordering Physician: Ananda Ha Referring Physician: Deysi Nicholson Performed By: Cayla Perez RVT Physical Exam Const alert, oriented x3 and no apparent distress General Appearance: cooperative, well kempt and well developed Orientation / Consciousness: awake, oriented to person, oriented to place and oriented to time HEENT normocephalic, head/scalp atraumatic and moist oral mucous membranes Eyes PERRL, EOMs intact bilaterally and conjunctivae normal Neck supple, no JVD and thyroid normal General: trachea midline Resp normal respiratory effort, no retractions, no use of accessory muscles and clear to auscultation bilaterally Auscultation: Negative for rales, rhonchi or wheezes Cardio regular rate, regular rhythm, no rub and no gallops Cardio Narrative: There is a 2 or 6 systolic murmur noted at the patient's apex and left sternal border GI normal to inspection, nondistended, normoactive bowel sounds, soft to palpation, non-tender and non-distended Extremity Extremity Narrative: There is generalized pitting edema noted in the patient's upper legs bilaterally, lower legs show no evidence of edema at this time Skin no rashes or lesions noted General Skin Exam: no breakdown Neuro oriented x3, CN's II-XII intact bilaterally, no focal motor deficits and no sensory deficits noted Sensorium / Orientation: awake and alert Speech: speech normal Psych affect normal Assessment & Plan Assessment/Plan (1) Chronic kidney disease, stage 3b: PLAN: Plan 1. Acute on chronic diastolic congestive heart failure-I have decided to place the patient on Lasix drip at this time, I had nephrology see the patient, she will need follow-up with nephrology as an outpatient due to her elevated creatinine #2 essential hypertension-patient will remain on her current medications #3 lower extremity edema secondary to #1-again patient will be placed on Lasix drip #4 chronic kidney disease stage IV-complicates care, management, recovery, and prognosis, labs will be repeated tomorrow, patient will need follow-up with nephrology #5 prediabetes-patient's fasting glucose this morning was 129, BMP will be repeated tomorrow #6 valvular heart disease-patient has a bioprosthetic aortic valve, she has some mitral valve insufficiency, patient will follow-up with cardiology as an outpatient NIHSS NIHSS Nursing Documentation NIHSS Nursing Documentation: NIHSS: Ischemic Stroke/TIA Start: 01/08/25 00:49 Freq: [id number] Status: Complete Protocol: Activity Type Activity Date Activity User E-sign Co-sign Detail Recorded Client Recorded Date Recorded By Document 01/08/25 03:22 [id number] 01/08/25 03:24 01/08/25 03:22 NIH Stroke Scale [NIHSS] A score of 0 is "normal" or asymptomatic . Total possible score is 42. Inpatient: RN or Physician to activate a stroke alert for onset of new stroke symptoms or with NIHSS increase >/= 3 points. Following change in neurological status, NIHSS will be performed per physician order or more frequently PRN. -1a. Level of Consciousness 0 - Alert; keenly responsive -1b. LOC Questions 0 - Answers BOTH questions correctly -1c. LOC Commands 0 - Performs BOTH tasks correctly -2. Best Gaze 0 - Normal -3. Visual 0 - No visual loss -4. Facial Palsy 1 - Minor paralysis ( flattened nasolabial fold , asymmetry on smiling) -5a. Left Arm 0 - No drift; arm holds 90 ( or 45) degrees for full 10 seconds -5b. Right Arm 0 - No drift; arm holds 90 ( or 45) degrees for full 10 seconds -6a. Left Leg 0 - No drift; leg holds 30- degree position for full 5 seconds -6b. Right Leg 0 - No drift; leg holds 30- degree position for full 5 seconds -7. Limb Ataxia 0 - Absent -8. Sensory 0 - Normal; no sensory loss -9. Best Language 0 - No aphasia; normal -10. Dysarthria 0 - Normal -11. Extinction and Inattention 0 - No abnormality -Total 1 Query Text:A score of 0 is "normal" or asymptomatic. Total possible score is 42 . ED: Notify Physician for NIHSS increase by > / = 3 points. Inpatient: RN or Physician to activate a stroke alert for NIHSS increase of > / = 3 points. Coma Scale [Assess] -Eye Opening Spontaneous -Motor Obeys Commands -Verbal Oriented [Total] -Coma Scale Total 15 NIHSS: Ischemic Stroke/TIA Start: 01/08/25 05:04 Text: For PCU Patients: NIH and Neuro Check every 4 Status: Complete hours, PRN and with change in RN caregiver. Freq: [id number] Protocol: Activity Type Activity Date Activity User E-sign Co-sign Detail Recorded Client Recorded Date Recorded By Document 01/08/25 12:00 [id number] 01/08/25 12:10 01/08/25 12:00 NIH Stroke Scale [NIHSS] A score of 0 is "normal" or asymptomatic . Total possible score is 42. Inpatient: RN or Physician to activate a stroke alert for onset of new stroke symptoms or with NIHSS increase >/= 3 points. Following change in neurological status, NIHSS will be performed per physician order or more frequently PRN. -1a. Level of Consciousness 0 - Alert; keenly responsive -1b. LOC Questions 0 - Answers BOTH questions correctly -1c. LOC Commands 0 - Performs BOTH tasks correctly -2. Best Gaze 0 - Normal -3. Visual 0 - No visual loss -4. Facial Palsy 1 - Minor paralysis ( flattened nasolabial fold , asymmetry on smiling) -5a. Left Arm 0 - No drift; arm holds 90 ( or 45) degrees for full 10 seconds -5b. Right Arm 0 - No drift; arm holds 90 ( or 45) degrees for full 10 seconds -6a. Left Leg 0 - No drift; leg holds 30- degree position for full 5 seconds -6b. Right Leg 0 - No drift; leg holds 30- degree position for full 5 seconds -7. Limb Ataxia 0 - Absent -8. Sensory 0 - Normal; no sensory loss -9. Best Language 0 - No aphasia; normal -10. Dysarthria 0 - Normal -11. Extinction and Inattention 0 - No abnormality -Total 1 Query Text:A score of 0 is "normal" or asymptomatic. Total possible score is 42 . ED: Notify Physician for NIHSS increase by > / = 3 points. Inpatient: RN or Physician to activate a stroke alert for NIHSS increase of > / = 3 points. Coma Scale [Assess] -Eye Opening Spontaneous -Motor Obeys Commands -Verbal Oriented [Total] -Coma Scale Total 15
[2025-01-08] MEDS: Metoprolol(XL)Succ 50 MG Tablet PO (21:06)
[2025-01-09] VITALS (8 sets, daily range): BP systolic 121–173; BP diastolic 51–61; PULSE 79–86; RESP 16–19; TEMP 36.5–37.1; O2SAT 93–97; BMI 27.3
[2025-01-09] MEDS: Senna/Docusate Sodium 1 Tablet 2 TABLET PO (03:47)
[2025-01-09 06:33] LABS: Anion Gap 13 (5-15); BUN 44 mg/dL (4-19); BUN/Creat Ratio 23.6 RATIO (10-20); Calcium,Total 8.9 mg/dL (7.6-11.0); Carbon Dioxide 24.5 mmol/L (21.0-32.0); Chloride 95 mmol/L (98-108); Estimated Creatinine Clearance 23.14 ml/min (50-250); Glucose 135 mg/dL (70-99); Potassium 4.5 mmol/L (3.3-5.1)
[2025-01-09] MEDS: Metoprolol(XL)Succ 50 MG Tablet PO ×2 (09:52→20:36)
[2025-01-09] MEDS: Potassium Chloride Oral Tablet 20 MEQ PO ×2 (09:52→18:30)
[2025-01-09] MEDS: Heparin Injection (Vial) 5,000 UNIT/ML VIAL 5000 UNIT SC ×2 (09:53→20:35)
--- NOTE | 2025-01-09 12:21 | PCM.PN.BLA ---
Progress Note patient was in bathroom today could not examine labs reviewed cr stable plan continue lasix drip till closer to dry weight at dc add bumex 2 mg BID/lasix 80 mg BID continue aldactone metolazone 5 mg as needed KCL 20 meq daily will arrange follow up after dc
--- NOTE | 2025-01-09 14:08 | CHAPLAIN ---
Type of Pastoral Visit ___ Initial Visit ___ Follow-up Visit ___ On-call Visit ___ General Patient Visit ___ Spiritual Assessment ___ Family Conference ___ Bereavement ___ Rapid Response ___ Code Blue ___ Other (describe below) Pastoral Care Referral From ___ Patient ___ Family ___ Nurse ___ Physician ___ Enchilada Maker ___ Commercial Loan Analyst ___ Other (describe below) Sacrament/Intervention ___ Active listening ___ Anointing ___ Anabaptism ___ Bereavement ___ Communion ___ Kelsea exploration ___ ___ Life review ___ Prayer ___ Reconciliation ___ Sacrament of Sick ___ Supportive presence ___ Wedding ___ Other (describe below) Pastoral Comments two attempts made to see patient and see was on the phone both times; offered to come another time and she agreed
--- NOTE | 2025-01-09 14:34 | PN.HOSP_ITS ---
Reason for Visit Reason for Visit: Diagnoses Transient cerebral ischemic attack, unspecified (01/07/25) Heart failure, unspecified (01/07/25) Acute kidney failure, unspecified (01/07/25) Chronic kidney disease, stage 3b (01/07/25) Subjective Subjective Patient was seen and examined today, she has less edema in her upper legs on examination today. Creatinine bumped up slightly today, I will recheck a BMP tomorrow. Objective Data Objective Data Vital Signs: Vital Signs Temp Pulse Resp BP Pulse Ox O2 Del Method 97.7 F L 86 17 121/61 H 97 Room Air 01/09/25 09:45 01/09/25 09:52 01/09/25 09:45 01/09/25 09:45 01/09/25 09:45 01/09/25 10:00 Oxygen Delivery Method Room Air Weight: 70 kg Body Mass Index (BMI) 27.3 Intake & Output: Intake and Output for Last 24 Hours 01/07/25 01/08/25 01/09/25 23:59 23:59 23:59 Intake Total 120 / 120 800 / 800 Output Total 1075 / 1475 1050 / 1050 Balance 120 / 120 -275 / -675 -1050 / -1050 Lab / Micro Data 01/08/25 06:06 01/09/25 05:38 Labs: Laboratory Results - last 24 hr 01/08/25 16:43: POC Glucose 184 H 01/09/25 05:38: Sodium 133, Potassium 4.5, Chloride 95 L, Carbon Dioxide 24.5, Anion Gap 13, BUN 44 H, Creatinine 1.85 H, Estim Creat Clear Calc 23.14 L, Est GFR (MDRD) Non-Af 27 L, BUN/Creatinine Ratio 23.6 H, Glucose 135 H, Calcium 8.9 01/09/25 06:44: POC Glucose 132 H 01/09/25 12:03: POC Glucose 214 H Physical Exam Narrative alert, oriented x3 and no apparent distress General Appearance: cooperative, well kempt and well developed Orientation / Consciousness: awake, oriented to person, oriented to place and oriented to time HEENT normocephalic, head/scalp atraumatic and moist oral mucous membranes Eyes PERRL, EOMs intact bilaterally and conjunctivae normal Neck supple, no JVD and thyroid normal General: trachea midline Resp normal respiratory effort, no retractions, no use of accessory muscles and clear to auscultation bilaterally Auscultation: Negative for rales, rhonchi or wheezes Cardio regular rate, regular rhythm, no rub and no gallops Cardio Narrative: There is a 2 or 6 systolic murmur noted at the patient's apex and left sternal border GI normal to inspection, nondistended, normoactive bowel sounds, soft to palpation, non-tender and non-distended Extremity Extremity Narrative: There is generalized pitting edema noted in the patient's upper legs bilaterally, lower legs show no evidence of edema at this time Skin no rashes or lesions noted General Skin Exam: no breakdown Neuro oriented x3, CN's II-XII intact bilaterally, no focal motor deficits and no sensory deficits noted Sensorium / Orientation: awake and alert Speech: speech normal Psych affect normal Assessment & Plan Assessment/Plan (1) CHF exacerbation: QUALIFIERS: Heart failure type: unspecified Qualified Code(s): I 50.9 - Heart failure, unspecified (2) Chronic kidney disease, stage 3b: PLAN: Plan 1. Acute on chronic diastolic congestive heart failure-patient remains on Lasix drip at this time, I will reevaluate her tomorrow #2 essential hypertension-patient will remain on her current medications #3 lower extremity edema secondary to #1-again patient will continue on Lasix drip #4 chronic kidney disease stage IV-complicates care, management, recovery, and prognosis, labs will be repeated tomorrow, patient will need follow-up with nephrology #5 prediabetes-patient's fasting glucose this morning was 133, BMP will be repeated tomorrow #6 valvular heart disease-patient has a bioprosthetic aortic valve, she has some mitral valve insufficiency, patient will follow-up with cardiology as an outpatient Total clinical time spent by myself addressing the patient's medical issues, reviewing all of her data, and collaborating with the patient's care team: 35 minutes Charges/Coding Visit Charges Inpatient E&M: 55183 Subs Hosp L2 NIHSS NIHSS Nursing Documentation NIHSS Nursing Documentation: NIHSS: Ischemic Stroke/TIA Start: 01/08/25 00:49 Freq: [id number] Status: Complete Protocol: Activity Type Activity Date Activity User E-sign Co-sign Detail Recorded Client Recorded Date Recorded By Document 01/08/25 03:22 RM [id number] 01/08/25 03:24 01/08/25 03:22 NIH Stroke Scale [NIHSS] A score of 0 is "normal" or asymptomatic . Total possible score is 42. Inpatient: RN or Physician to activate a stroke alert for onset of new stroke symptoms or with NIHSS increase >/= 3 points. Following change in neurological status, NIHSS will be performed per physician order or more frequently PRN. -1a. Level of Consciousness 0 - Alert; keenly responsive -1b. LOC Questions 0 - Answers BOTH questions correctly -1c. LOC Commands 0 - Performs BOTH tasks correctly -2. Best Gaze 0 - Normal -3. Visual 0 - No visual loss -4. Facial Palsy 1 - Minor paralysis ( flattened nasolabial fold , asymmetry on smiling) -5a. Left Arm 0 - No drift; arm holds 90 ( or 45) degrees for full 10 seconds -5b. Right Arm 0 - No drift; arm holds 90 ( or 45) degrees for full 10 seconds -6a. Left Leg 0 - No drift; leg holds 30- degree position for full 5 seconds -6b. Right Leg 0 - No drift; leg holds 30- degree position for full 5 seconds -7. Limb Ataxia 0 - Absent -8. Sensory 0 - Normal; no sensory loss -9. Best Language 0 - No aphasia; normal -10. Dysarthria 0 - Normal -11. Extinction and Inattention 0 - No abnormality -Total 1 Query Text:A score of 0 is "normal" or asymptomatic. Total possible score is 42 . ED: Notify Physician for NIHSS increase by > / = 3 points. Inpatient: RN or Physician to activate a stroke alert for NIHSS increase of > / = 3 points. Coma Scale [Assess] -Eye Opening Spontaneous -Motor Obeys Commands -Verbal Oriented [Total] -Coma Scale Total 15 NIHSS: Ischemic Stroke/TIA Start: 01/08/25 05:04 Text: For PCU Patients: NIH and Neuro Check every 4 Status: Complete hours, PRN and with change in RN caregiver. Freq: [id number] Protocol: Activity Type Activity Date Activity User E-sign Co-sign Detail Recorded Client Recorded Date Recorded By Document 01/08/25 12:00 [id number] 01/08/25 12:10 01/08/25 12:00 NIH Stroke Scale [NIHSS] A score of 0 is "normal" or asymptomatic . Total possible score is 42. Inpatient: RN or Physician to activate a stroke alert for onset of new stroke symptoms or with NIHSS increase >/= 3 points. Following change in neurological status, NIHSS will be performed per physician order or more frequently PRN. -1a. Level of Consciousness 0 - Alert; keenly responsive -1b. LOC Questions 0 - Answers BOTH questions correctly -1c. LOC Commands 0 - Performs BOTH tasks correctly -2. Best Gaze 0 - Normal -3. Visual 0 - No visual loss -4. Facial Palsy 1 - Minor paralysis ( flattened nasolabial fold , asymmetry on smiling) -5a. Left Arm 0 - No drift; arm holds 90 ( or 45) degrees for full 10 seconds -5b. Right Arm 0 - No drift; arm holds 90 ( or 45) degrees for full 10 seconds -6a. Left Leg 0 - No drift; leg holds 30- degree position for full 5 seconds -6b. Right Leg 0 - No drift; leg holds 30- degree position for full 5 seconds -7. Limb Ataxia 0 - Absent -8. Sensory 0 - Normal; no sensory loss -9. Best Language 0 - No aphasia; normal -10. Dysarthria 0 - Normal -11. Extinction and Inattention 0 - No abnormality -Total 1 Query Text:A score of 0 is "normal" or asymptomatic. Total possible score is 42 . ED: Notify Physician for NIHSS increase by > / = 3 points. Inpatient: RN or Physician to activate a stroke alert for NIHSS increase of > / = 3 points. Coma Scale [Assess] -Eye Opening Spontaneous -Motor Obeys Commands -Verbal Oriented [Total] -Coma Scale Total 15
[2025-01-09] MEDS: Furosemide 500 MG in Empty Viaflex 50 mL 1 EACH CONT INF (22:15)
[2025-01-10] VITALS (8 sets, daily range): BP systolic 148–149; BP diastolic 54–62; PULSE 79–86; RESP 16–19; TEMP 36.5–37; O2SAT 90–99; BMI 26.9
[2025-01-10] MEDS: Heparin Injection (Vial) 5,000 UNIT/ML VIAL 5000 UNIT SC ×2 (09:30→23:05)
[2025-01-10] MEDS: Potassium Chloride Oral Tablet 20 MEQ PO ×2 (09:30→18:34)
[2025-01-10] MEDS: Metoprolol(XL)Succ 50 MG Tablet PO ×2 (09:31→23:01)
--- NOTE | 2025-01-10 11:50 | PN.RENAL_ITS ---
Subjective Subjective No new complaints today Objective Data Objective Data Vital Signs: Vital Signs Temp Pulse Resp BP Pulse Ox O2 Del Method 98.6 F 85 19 H 149/54 H 96 Room Air 01/10/25 03:02 01/10/25 09:31 01/10/25 03:02 01/10/25 09:31 01/10/25 10:29 01/10/25 10:29 Oxygen Delivery Method Room Air Weight: 69.1 kg Body Mass Index (BMI) 26.9 Intake & Output: Intake and Output for Last 24 Hours 01/08/25 01/09/25 01/10/25 23:59 23:59 23:59 Intake Total 800 / 800 1449.5 / 1449.5 Output Total 1075 / 1475 1925 / 1925 300 / 300 Balance -275 / -675 -475.5 / -475.5 -300 / -300 Lab / Micro Data 01/08/25 06:06 01/09/25 05:38 Labs: Laboratory Results - last 24 hr 01/09/25 12:03: POC Glucose 214 H 01/09/25 17:07: POC Glucose 111 H 01/10/25 06:43: POC Glucose 134 H Physical Exam Narrative Alert awake oriented x 3 no obvious distress no pallor no icterus no JVD s1s2 no murmurs lungs clear abdomen soft no organomegaly ++ edema no cyanosis Assessment & Plan Assessment/Plan (1) Chronic kidney disease, stage 3b: PLAN: Reviewed records from [facility] where her primary care physician is, from care everywhere from [facility] During her hospitalization in October, [facility] where she was admitted in December. She has had unfortunately 3 hospitalizations within the last 3 months. #1. Heart failure. BNP has been consistently in the thousands. Reviewed medication list, she was supposed to be on Lasix 80 mg / 40 mg but looks like she may be taking 40 mg twice a day. Spironolactone 25 mg once a day. Metolazone 2.5 mg as needed is on the medication list but both patient and have confirmed that she is not taking that. Farxiga is on the medication list but she thinks that she could not take it because it was very expensive. Baseline weight is around 139 pounds. As high as 154 pounds. 2. Renal failure. Baseline creatinine appears to be around 1.3-1.4. She had acute renal failure, required CRRT for about 1 day. Recovered renal function. Most often creatinine in the last 3 months has been between 1.8-2.0. No significant proteinuria. 3. Atherosclerosis. 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 She recently saw Dr. Shasta Pak and no intervention was planned since it was unilateral stenosis. Edema is better. She is asking about going home. Walked around without oxygen and felt okay. Okay to discharge from nephrology standpoint Discharge medications include Lasix 80 mg twice a day or Bumex 2 mg twice a day Spironolactone 25 mg once a day Potassium chloride 20 mill equivalents once a day Use metolazone 5 mg as needed for any weight more than 144 pounds to call insurance company about feasibility of getting Loki/Milo/Brandan Will arrange follow-up in office next week (2) MONIQUE (acute kidney injury):
--- NOTE | 2025-01-10 14:23 | CHAPLAIN ---
Type of Pastoral Visit _x__ Initial Visit ___ Follow-up Visit ___ On-call Visit ___ General Patient Visit ___ Spiritual Assessment ___ Family Conference ___ Bereavement ___ Rapid Response ___ Code Blue ___ Other (describe below) Pastoral Care Referral From _x__ Patient ___ Family ___ Nurse ___ Physician ___ Day Haul Youth Supervisor ___ Ophthalmic Surgical Assistant ___ Other (describe below) Sacrament/Intervention _x__ Active listening ___ Anointing ___ Religious ___ Bereavement ___ Communion _x__ Kelsea exploration ___ _x__ Life review _x__ Prayer ___ Reconciliation ___ Sacrament of Sick ___ Supportive presence ___ Wedding ___ Other (describe below) Pastoral Comments patient is welcoming of a spiritual care visit and speaks of several months of health issues beginning with some unexpected events in [place] during the winter; pt admits to being weary of staying in the hospital but thankful for outcomes; pt is also concerned about having the medical team figure more precisely what is happening and how to treat it for her; pt has a very supportive and a wonderful pentecostalism class that gives her good support; pt is a person of kelsea and relies on God and prayer for her daily life; pt welcomes time, presence, and prayers
--- NOTE | 2025-01-10 18:23 | PCM.PN.HOSP ---
Reason for Visit Reason for Visit: Diagnoses Transient cerebral ischemic attack, unspecified (01/07/25) Heart failure, unspecified (01/07/25) Acute kidney failure, unspecified (01/07/25) Chronic kidney disease, stage 3b (01/07/25) Subjective Subjective Patient was seen and examined today, she remains on room air. There is less edema in the patient's upper legs although the patient's input of fluids is greater than her output of urine. Patient remains on IV Lasix drip at this time. Objective Data Objective Data Vital Signs: Vital Signs Temp Pulse Resp BP Pulse Ox O2 Del Method 97.7 F L 85 16 149/54 H 96 Room Air 01/10/25 09:00 01/10/25 09:31 01/10/25 09:00 01/10/25 09:31 01/10/25 10:29 01/10/25 14:00 Oxygen Delivery Method Room Air Weight: 69.1 kg Body Mass Index (BMI) 26.9 Intake & Output: Intake and Output for Last 24 Hours 01/08/25 01/09/25 01/10/25 23:59 23:59 23:59 Intake Total 800 / 800 1449.5 / 1449.5 240 / 240 Output Total 1075 / 1475 1925 / 1925 500 / 500 Balance -275 / -675 -475.5 / -475.5 -260 / -260 Lab / Micro Data 01/08/25 06:06 01/09/25 05:38 Labs: Laboratory Results - last 24 hr 01/10/25 06:43: POC Glucose 134 H 01/10/25 13:02: POC Glucose 133 H 01/10/25 17:10: POC Glucose 126 H Physical Exam Narrative alert, oriented x3 and no apparent distress General Appearance: cooperative, well kempt and well developed Orientation / Consciousness: awake, oriented to person, oriented to place and oriented to time HEENT normocephalic, head/scalp atraumatic and moist oral mucous membranes Eyes PERRL, EOMs intact bilaterally and conjunctivae normal Neck supple, no JVD and thyroid normal General: trachea midline Resp normal respiratory effort, no retractions, no use of accessory muscles and clear to auscultation bilaterally Auscultation: Negative for rales, rhonchi or wheezes Cardio regular rate, regular rhythm, no rub and no gallops Cardio Narrative: There is a 2 or 6 systolic murmur noted at the patient's apex and left sternal border GI normal to inspection, nondistended, normoactive bowel sounds, soft to palpation, non-tender and non-distended Extremity Extremity Narrative: There is generalized pitting edema noted in the patient's upper legs bilaterally, lower legs show no evidence of edema at this time Skin no rashes or lesions noted General Skin Exam: no breakdown Neuro oriented x3, CN's II-XII intact bilaterally, no focal motor deficits and no sensory deficits noted Sensorium / Orientation: awake and alert Speech: speech normal Psych affect normal Assessment & Plan Assessment/Plan (1) CHF exacerbation: QUALIFIERS: Heart failure type: unspecified Qualified Code(s): I50.9 - Heart failure, unspecified (2) Chronic kidney disease, stage 3b: PLAN: Plan 1. Acute on chronic diastolic congestive heart failure-patient remains on IV Lasix drip at this time, she will be reevaluated tomorrow, BMP will be obtained tomorrow 2 essential hypertension-patient will remain on her current medications #3 lower extremity edema secondary to #1-again patient on Lasix drip #4 chronic kidney disease stage IV-complicates care, management, recovery, and prognosis, labs will be repeated tomorrow, patient will need follow-up with nephrology as an outpatient #5 prediabetes-patient's fasting glucose this morning was 135, BMP will be repeated tomorrow #6 valvular heart disease-patient has a bioprosthetic aortic valve, she has some mitral valve insufficiency, patient will follow-up with cardiology as an outpatient Total clinical time spent by myself addressing the patient's medical issues, reviewing all of her data, and collaborating with patient's care team: 35-minute Charges/Coding Visit Charges Inpatient E&M: 94089 Subs Hosp L2 NIHSS NIHSS Nursing Documentation NIHSS Nursing Documentation: NIHSS: Ischemic Stroke/TIA Start: 01/08/25 00:49 Freq: [id number] Status: Complete Protocol: Activity Type Activity Date Activity User E-sign Co-sign Detail Recorded Client Recorded Date Recorded By Document 01/08/25 03:22 [id number] 01/08/25 03:24 01/08/25 03:22 NIH Stroke Scale [NIHSS] A score of 0 is "normal" or asymptomatic . Total possible score is 42. Inpatient: RN or Physician to activate a stroke alert for onset of new stroke symptoms or with NIHSS increase >/= 3 points. Following change in neurological status, NIHSS will be performed per physician order or more frequently PRN. -1a. Level of Consciousness 0 - Alert; keenly responsive -1b. LOC Questions 0 - Answers BOTH questions correctly -1c. LOC Commands 0 - Performs BOTH tasks correctly -2. Best Gaze 0 - Normal -3. Visual 0 - No visual loss -4. Facial Palsy 1 - Minor paralysis ( flattened nasolabial fold , asymmetry on smiling) -5a. Left Arm 0 - No drift; arm holds 90 ( or 45) degrees for full 10 seconds -5b. Right Arm 0 - No drift; arm holds 90 ( or 45) degrees for full 10 seconds -6a. Left Leg 0 - No drift; leg holds 30- degree position for full 5 seconds -6b. Right Leg 0 - No drift; leg holds 30- degree position for full 5 seconds -7. Limb Ataxia 0 - Absent -8. Sensory 0 - Normal; no sensory loss -9. Best Language 0 - No aphasia; normal -10. Dysarthria 0 - Normal -11. Extinction and Inattention 0 - No abnormality -Total 1 Query Text:A score of 0 is "normal" or asymptomatic. Total possible score is 42 . ED: Notify Physician for NIHSS increase by > / = 3 points. Inpatient: RN or Physician to activate a stroke alert for NIHSS increase of > / = 3 points. Coma Scale [Assess] -Eye Opening Spontaneous -Motor Obeys Commands -Verbal Oriented [Total] -Coma Scale Total 15 NIHSS: Ischemic Stroke/TIA Start: 01/08/25 05:04 Text: For PCU Patients: NIH and Neuro Check every 4 Status: Complete hours, PRN and with change in RN caregiver. Freq: [id number] Protocol: Activity Type Activity Date Activity User E-sign Co-sign Detail Recorded Client Recorded Date Recorded By Document 01/08/25 12:00 [id number] 01/08/25 12:10 01/08/25 12:00 NIH Stroke Scale [NIHSS] A score of 0 is "normal" or asymptomatic . Total possible score is 42. Inpatient: RN or Physician to activate a stroke alert for onset of new stroke symptoms or with NIHSS increase >/= 3 points. Following change in neurological status, NIHSS will be performed per physician order or more frequently PRN. -1a. Level of Consciousness 0 - Alert; keenly responsive -1b. LOC Questions 0 - Answers BOTH questions correctly -1c. LOC Commands 0 - Performs BOTH tasks correctly -2. Best Gaze 0 - Normal -3. Visual 0 - No visual loss -4. Facial Palsy 1 - Minor paralysis ( flattened nasolabial fold , asymmetry on smiling) -5a. Left Arm 0 - No drift; arm holds 90 ( or 45) degrees for full 10 seconds -5b. Right Arm 0 - No drift; arm holds 90 ( or 45) degrees for full 10 seconds -6a. Left Leg 0 - No drift; leg holds 30- degree position for full 5 seconds -6b. Right Leg 0 - No drift; leg holds 30- degree position for full 5 seconds -7. Limb Ataxia 0 - Absent -8. Sensory 0 - Normal; no sensory loss -9. Best Language 0 - No aphasia; normal -10. Dysarthria 0 - Normal -11. Extinction and Inattention 0 - No abnormality -Total 1 Query Text:A score of 0 is "normal" or asymptomatic. Total possible score is 42 . ED: Notify Physician for NIHSS increase by > / = 3 points. Inpatient: RN or Physician to activate a stroke alert for NIHSS increase of > / = 3 points. Coma Scale [Assess] -Eye Opening Spontaneous -Motor Obeys Commands -Verbal Oriented [Total] -Coma Scale Total 15
[2025-01-11 01:45] VITALS: BMI 26.9
[2025-01-11 03:00] VITALS: PULSE 78
[2025-01-11 05:50] VITALS: BMI 28.0
[2025-01-11 06:37] VITALS: BP 150/60; PULSE 84; RESP 18; TEMP 36.5; O2SAT 99
[2025-01-11 06:47] LABS: Anion Gap 13 (5-15); BUN 41 mg/dL (4-19); BUN/Creat Ratio 20.6 RATIO (10-20); Calcium,Total 9.0 mg/dL (7.6-11.0); Carbon Dioxide 25.5 mmol/L (21.0-32.0); Chloride 95 mmol/L (98-108); Estimated Creatinine Clearance 21.99 ml/min (50-250); Glucose 117 mg/dL (70-99); Potassium 4.4 mmol/L (3.3-5.1)
[2025-01-11 07:00] VITALS: PULSE 74
[2025-01-11 08:59] VITALS: BP 153/55; PULSE 85; RESP 18; TEMP 36.7; O2SAT 100
[2025-01-11 09:29] VITALS: PULSE 85
[2025-01-11] MEDS: Metoprolol(XL)Succ 50 MG Tablet PO (09:29)
[2025-01-11] MEDS: Potassium Chloride Oral Tablet 20 MEQ PO (09:29)
[2025-01-11] MEDS: Heparin Injection (Vial) 5,000 UNIT/ML VIAL 5000 UNIT SC (09:30)
[2025-01-11 10:44] VITALS: PULSE 71
--- NOTE | 2025-01-11 12:26 | DCINST_ITS ---
Discharge Instructions Diet Discharge Diet: 1800 Calorie Control Diet DC O2, CPAP, BIPAP needs Home O2 Discharge instructions: No Dressing / Incision Discharge Activity: Return to Normal Activity Weight Bearing Status: Full weight bearing Follow Up Care Test Results: Test results from this visit will be discussed in further detail at your follow- up appointment, if applicable. Discharge Plan Admission Admit Date/Time: 01/07/25 16:29 Primary Reason for Your Visit: chf Attending Provider: Dylon Stovall Primary Care Provider: Deysi Nicholson NP Consulting Providers: Radha Heller; Jeremy Mcgarry Discharge Orders/Prescriptions Prescriptions: New potassium chloride 10 mEq Tablet,Er Particles/Crystals 20 meq PO DAILYCM Qty: 60 0RF bumetanide 2 mg tablet 2 mg PO BID Qty: 60 0RF metolazone 5 mg tablet 5 mg PO DAILY Qty: 30 0RF Continued metoprolol succinate 25 mg tablet extended release 24 hr 50 mg PO BID Patient Comments: TAKE 1 TABLET BY MOUTH EVERY DAY aspirin 81 mg capsule 81 mg PO DAILY clopidogrel 75 mg tablet 75 mg PO DAILY ferrous sulfate [Feosol] 325 mg (65 mg iron) tablet 325 mg PO DAILY atorvastatin 40 mg tablet 40 mg PO DAILY pantoprazole 40 mg tablet,delayed release (DR/EC) 40 mg PO BID psyllium 3.4 gram/5.8 gram powder 3.4 g PO BID spironolactone 25 mg tablet 12.5 mg PO BID Discontinued furosemide 20 MG tablet 40 mg PO BID metolazone 2.5 mg tablet 2.5 mg PO DAILY PRN (Reason: edema) potassium chloride 10 mEq tablet extended release 10 meq PO DAILY Referrals / Follow Up: Jeremy Mcgarry MD [Med Staff - Consulting] - In 1 Week (Call the office to confirm an appointment next week) Narinder Huynh MD [Med Staff - Active Staff] - See Referral Note (February 05, 2025 at 9 AM, please arrive 15 minutes early to fill out paperwork) Mars Hernandez MD [Non-Staff] - Deysi Nicholson NP, [employer] LANG[employer]AGE INTERPRETER-C [Primary Care Provider] - Disposition Disposition (needs filled in before D/C Order can be placed): Home, Self Care
--- NOTE | 2025-01-11 12:30 | DS.PCM_ITS ---
Providers Date of Admission: 01/07/25 Date of Discharge: 01/11/25 Primary Care Physician: JARROD Cantu Consultations 01/08/25 05:04 Consult: Tele-Neurology Routine Consulting Provider: [facility] Reason for Consult: Acute Ischemic Stroke/TIA EMERGENT Consult: No Notified: Yes Date Notified: 01/08/25 Time Notified: 05:54 Method of Notification: Answering Service Nursing Unit Staff Notify [facility] of Tele-Neurology Consult: Yes 01/08/25 16:09 Consult: Nephrology Routine Consulting Provider: Jeremy Mcgarry Reason for Consult: ckd EMERGENT Consult: No Notified: Yes Date Notified: 01/08/25 Time Notified: 16:10 Method of Notification: Verbal Reason For Visit: CHF EXACERBATION Diagnosis Discharge Diagnosis (1) CHF exacerbation: Status: Acute Code(s): I50.9 - Heart failure, unspecified Qualifiers: Heart failure type: unspecified Qualified Code(s): I50.9 - Heart failure, unspecified (2) Chronic kidney disease, stage 3b: Status: Acute Code(s): N18.32 - Chronic kidney disease, stage 3b Plan 1. Acute on chronic diastolic congestive heart failure-patient remains on IV Lasix drip at this time, she will be reevaluated tomorrow, BMP will be obtained tomorrow 2 essential hypertension-patient will remain on her current medications #3 lower extremity edema secondary to #1-again patient on Lasix drip #4 chronic kidney disease stage IV-complicates care, management, recovery, and prognosis, labs will be repeated tomorrow, patient will need follow-up with nephrology as an outpatient #5 prediabetes-patient's fasting glucose this morning was 135, BMP will be repeated tomorrow #6 valvular heart disease-patient has a bioprosthetic aortic valve, she has some mitral valve insufficiency, patient will follow-up with cardiology as an outpatient Total clinical time spent by myself addressing the patient's medical issues, reviewing all of her data, and collaborating with patient's care team: 35-minute Medications at Discharge Home Medications metoprolol succinate 25 mg tablet,extended release 24 hr 50 mg PO BID heart 02/13/21 aspirin 81 mg capsule 81 mg PO DAILY 01/07/25 atorvastatin 40 mg tablet 40 mg PO DAILY daily 01/07/25 clopidogrel 75 mg tablet 75 mg PO DAILY 01/07/25 ferrous sulfate 325 mg (65 mg iron) tablet (Feosol) 325 mg PO DAILY 01/07/25 pantoprazole 40 mg tablet,delayed release 40 mg PO BID stomach 01/07/25 psyllium 3.4 gram/5.8 gram oral powder 3.4 g PO BID daily 01/07/25 spironolactone 25 mg tablet 12.5 mg PO BID daily 01/07/25 bumetanide 2 mg tablet 2 mg PO BID #60 tabs 01/08/25 metolazone 5 mg tablet 5 mg PO DAILY #30 tabs 01/08/25 potassium chloride 10 mEq tablet,extended release(part/cryst) 20 meq (2 x 10 mEq) PO DAILYCM #60 tabs 01/08/25 Hospital Course Operations None Procedures 2-D Echocardiogram Summary of Care Provided Minutes Spent on Discharge: 31 Hospital Course: This 79-year-old white female was seen in the emergency room at [facility] with complaints of shortness of breath. She had been diagnosed previously with congestive heart failure in the past, she had been seen by her home care nurse on January 01, 2025 and he changed her Lasix dosage. Patient complained of mild shortness of breath at rest but worsening shortness of breath with exertion. Labs were remarkable for sodium of 129, BUN was 47 creatinine was 1.77, patient's troponins were elevated but were "flat", beta nitric peptide was elevated at 10,409. Chest x-ray was obtained and showed findings consistent with mild congestive heart failure. Patient was admitted to PCU and placed on IV diuresis, later that night at approximately 10:50 PM the patient was noted to have a left facial droop in addition to weakness in her left lower extremity, it was found out however that the patient had a chronic left facial droop and this was not a new finding. A stroke alert was called and she underwent a CT scan of the head without contrast and a CT of the head and neck, these imaging studies were unremarkable. Patient was already on Plavix and aspirin and a statin. Patient was seen the following day by teleneurology, she stated that she felt back to baseline and teleneurology did not feel that any further stroke workup was necessary. Patient was seen in consultation by nephrology who assisted in providing diuresis input concerning the patient. On 01/11/2025, patient was seen and examined: On examination she appeared in good health and spirits, she does not appear to be in any distress. Vital signs as documented. Skin warm and dry and without overt rashes. Neck without JVD, thyroid appears normal, trachea is midline, neck is supple. Lungs clear, normal air movement was noted. Heart exam notable for regular rhythm, normal sounds and absence of murmurs, rubs or gallops. Abdomen unremarkable and without evidence of organomegaly, masses, or abdominal aortic enlargement, bowel sounds are present in all 4 quadrants, no abdominal tenderness was noted. Extremities nonedematous, no cyanosis was noted, no clubbing was noted. Neuro: Cranial nerves II through XII are grossly intact, no focal motor deficits were noted, sensation to light touch and pinprick is intact, motor exam 5/5 throughout. Psych: Patient is alert and oriented x3, she does not appear anxious or depressed, she does not appear agitated. Patient was felt to be stable for discharge home on 01/11/2025, she was to follow-up as an outpatient with nephrology. Weight / BMI Weight Weight: 71.8 kg Body Mass Index (BMI) 28.0 ABG / Lab / Microbiology Data 01/08/25 06:06 01/11/25 05:25 Laboratory: Laboratory Results - last 24 hr 01/10/25 13:02: POC Glucose 133 H 01/10/25 17:10: POC Glucose 126 H 01/11/25 05:25: Sodium 134, Potassium 4.4, Chloride 95 L, Carbon Dioxide 25.5, Anion Gap 13, BUN 41 H, Creatinine 1.97 H, Estim Creat Clear Calc 21.99 L, Est GFR (MDRD) Non-Af 25 L, BUN/Creatinine Ratio 20.6 H, Glucose 117 H, Calcium 9.0 01/11/25 06:20: POC Glucose 116 H D/C Instructions Discharge Diet: 1800 Calorie Control Diet Weight Bearing Status: Full weight bearing DC O2, CPAP, BIPAP Needs Home O2 Discharge instructions: No Meaningful Use Info Meaningful Use Meaningful Use Diagnoses (Choose all that apply): CHF CHF CAMILLE/ARB ordered at discharge?: No Reason CAMILLE/ARB not ordered?: Not indicated Documented LVEF (%): 50 Discharge Plan Admission Admit Date/Time: 01/07/25 16:29 Primary Reason for Your Visit: chf Attending Provider: Dylon Stovall Primary Care Provider: Deysi Nicholson NP Consulting Providers: Radha Heller; Jeremy Mcgarry Discharge Orders/Prescriptions Prescriptions: New potassium chloride 10 mEq Tablet,Er Particles/Crystals 20 meq PO DAILYCM Qty: 60 0RF bumetanide 2 mg tablet 2 mg PO BID Qty: 60 0RF metolazone 5 mg tablet 5 mg PO DAILY Qty: 30 0RF Continued metoprolol succinate 25 mg tablet extended release 24 hr 50 mg PO BID Patient Comments: TAKE 1 TABLET BY MOUTH EVERY DAY aspirin 81 mg capsule 81 mg PO DAILY clopidogrel 75 mg tablet 75 mg PO DAILY ferrous sulfate [Feosol] 325 mg (65 mg iron) tablet 325 mg PO DAILY atorvastatin 40 mg tablet 40 mg PO DAILY pantoprazole 40 mg tablet,delayed release (DR/EC) 40 mg PO BID psyllium 3.4 gram/5.8 gram powder 3.4 g PO BID spironolactone 25 mg tablet 12.5 mg PO BID Discontinued furosemide 20 MG tablet 40 mg PO BID metolazone 2.5 mg tablet 2.5 mg PO DAILY PRN (Reason: edema) potassium chloride 10 mEq tablet extended release 10 meq PO DAILY Referrals / Follow Up: Jeremy Mcgarry MD [Med Staff - Consulting] - In 1 Week (Call the office to confirm an appointment next week) Narinder Huynh MD [Med Staff - Active Staff] - See Referral Note (February 05, 2025 at 9 AM, please arrive 15 minutes early to fill out paperwork) Mars Hernandez MD [Non-Staff] - Deysi Nicholson NP, MANAGER LPN-C [Primary Care Provider] - Disposition Disposition (needs filled in before D/C Order can be placed): Home, Self Care Charges/Coding Visit Charges Inpatient E&M: 42266 Disch Hosp >30min
--- NOTE | 2025-01-11 13:22 | CASEMGMT ---
RN CM NOTE: Discharge order is in. RN CM to room. Pt denies having any discharge needs. Cesilia BSN RN CM
--- NOTE | 2025-01-11 13:59 | NURSING ---
Pt discharged home with per hospital protocol without incident.
--- NOTE | 2025-01-11 15:38 | PCM.PN.REN ---
Subjective Subjective no new complaints dc today Objective Data Objective Data Vital Signs: Vital Signs Temp Pulse Resp BP Pulse Ox O2 Del Method 98.1 F 71 18 153/55 H 100 Room Air 01/11/25 08:59 01/11/25 10:44 01/11/25 08:59 01/11/25 08:59 01/11/25 08:59 01/11/25 08:59 Oxygen Delivery Method Room Air Weight: 71.8 kg Body Mass Index (BMI) 28.0 Intake & Output: Intake and Output for Last 24 Hours 01/09/25 01/10/25 01/11/25 23:59 23:59 23:59 Intake Total 1449.5 / 1449.5 240 / 240 213.08 / 213.08 Output Total 1925 / 1925 1550 / 1550 900 / 900 Balance -475.5 / -475.5 -1310 / -1310 -686.92 / -686.92 Lab / Micro Data 01/08/25 06:06 01/11/25 05:25 Labs: Laboratory Results - last 24 hr 01/10/25 17:10: POC Glucose 126 H 01/11/25 05:25: Sodium 134, Potassium 4.4, Chloride 95 L, Carbon Dioxide 25.5, Anion Gap 13, BUN 41 H, Creatinine 1.97 H, Estim Creat Clear Calc 21.99 L, Est GFR (MDRD) Non-Af 25 L, BUN/Creatinine Ratio 20.6 H, Glucose 117 H, Calcium 9.0 01/11/25 06:20: POC Glucose 116 H Physical Exam Narrative Alert awake oriented x 3 no obvious distress no pallor no icterus no JVD s1s2 no murmurs lungs clear abdomen soft no organomegaly ++ edema no cyanosis Assessment & Plan Assessment/Plan (1) Chronic kidney disease, stage 3b: PLAN: Reviewed records from [facility] where her primary care physician is, from care everywhere from [facility] During her hospitalization in October, [facility] where she was admitted in December. She has had unfortunately 3 hospitalizations within the last 3 months. #1. Heart failure. BNP has been consistently in the thousands. Reviewed medication list, she was supposed to be on Lasix 80 mg / 40 mg but looks like she may be taking 40 mg twice a day. Spironolactone 25 mg once a day. Metolazone 2.5 mg as needed is on the medication list but both patient and have confirmed that she is not taking that. Farxiga is on the medication list but she thinks that she could not take it because it was very expensive. Baseline weight is around 139 pounds. As high as 154 pounds. 2. Renal failure. Baseline creatinine appears to be around 1.3-1.4. She had acute renal failure, required CRRT for about 1 day. Recovered renal function. Most often creatinine in the last 3 months has been between 1.8-2.0. No significant proteinuria. 3. Atherosclerosis. 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 She recently saw Dr. Shasta Pak and no intervention was planned since it was unilateral stenosis. Edema is better. Discharge medications include Lasix 80 mg twice a day or Bumex 2 mg twice a day Spironolactone 25 mg once a day Potassium chloride 20 mill equivalents once a day Use metolazone 5 mg as needed for any weight more than 144 pounds to call insurance company about feasibility of getting Farxiga/Jardiance/Steglatro Will arrange follow-up in office next week (2) MONIQUE (acute kidney injury):
== END 2025-01-11 13:41 | disposition home or self-care (01) ==
LOC: ED 16:39 → PCU 01-08 07:58
PROVIDERS: Internal Medicine; Physician Assistant; Admitting Provider Internal Medicine; Emergency Provider Emergency Medicine; PCP Registered Nurse; Visit Provider Internal Medicine
DX: I13.0 Hypertensive heart and chronic kidney disease with heart failure and stage 1 through stage 4 chronic kidney disease, or unspecified chronic kidney disease (principal); N18.4 Chronic kidney disease, stage 4 (severe); I50.33 Acute on chronic diastolic (congestive) heart failure; I48.0 Paroxysmal atrial fibrillation; E11.51 Type 2 diabetes mellitus with diabetic peripheral angiopathy without gangrene; E11.22 Type 2 diabetes mellitus with diabetic chronic kidney disease; E87.1 Hypo-osmolality and hyponatremia; N17.9 Acute kidney failure, unspecified; Z95.2 Presence of prosthetic heart valve; I71.20 Thoracic aortic aneurysm, without rupture, unspecified; E78.5 Hyperlipidemia, unspecified; I44.4 Left anterior fascicular block; I08.3 Combined rheumatic disorders of mitral, aortic and tricuspid valves; R29.810 Facial weakness; R29.898 Other symptoms and signs involving the musculoskeletal system; Z95.0 Presence of cardiac pacemaker; Z79.02 Long term (current) use of antithrombotics/antiplatelets; Z79.82 Long term (current) use of aspirin; Z79.899 Other long term (current) drug therapy; Z86.718 Personal history of other venous thrombosis and embolism; I37.1 Nonrheumatic pulmonary valve insufficiency; I65.23 Occlusion and stenosis of bilateral carotid arteries; I70.1 Atherosclerosis of renal artery
CPT/HCPCS: 36415; 70450; 70496; 70498; 71046; 80048; 80061; 82962; 83036; 83735; 83880; 84443; 84484; 85025; 93005; 93306; 93880; 94760; 94762; 96365; 96366; 96372; 96375; 96376; 97116; 97162; 97166; 97530; 97535; 97802; 99221; 99283; Q9957; A4216; G0378; J1938

== ENCOUNTER → 2025-01-23 | Outpatient (CLI) | payer MEDICARE, SELFPAY ==
[2025-01-23 16:24] LABS: Creatinine, Urine (random) 67.50 mg/dL (28.00-217.00); Protein, Urine (Random) 32.2 mg/dL (0.0-12.0); Protein:Creat Ratio 477 mg/g CRE (0-200)
[2025-01-23 16:37] LABS: Albumin, Serum 4.0 g/dL (3.4-4.8); Anion Gap 17 (5-15); BUN 57 mg/dL (4-19); BUN/Creat Ratio 29.1 RATIO (10-20); Calcium,Total 9.5 mg/dL (7.6-11.0); Carbon Dioxide 23.7 mmol/L (21.0-32.0); Chloride 91 mmol/L (98-108); Glucose 105 mg/dL (70-99); Magnesium 2.0 mg/dL (1.5-2.2); Potassium 3.8 mmol/L (3.3-5.1)
[2025-01-23 17:44] LABS: Cholesterol 72 mg/dL (<=200); Hepatitis C Antibody Nonreactive (Nonreactive); Low Density Lipoprotein Calc. 25 mg/dL; Triglycerides 52 mg/dL; Very Low Density Lipoprotein 10 mg/dL (5-40); Vitamin D,25 Hydroxy 34.9 ng/mL (30-100); cholesterol:hdl ratio screen 2.00
[2025-01-23 18:16] LABS: AST(SGOT) 24 U/L (<=31); Alanine Aminotransfer ALT/SGPT 11 U/L (<=34); Alkaline Phosphatase 126 U/L (35-104)
--- OUTSIDE RECORDS SUMMARY | 2025-01-23 21:01 | XMS RPT_ITS | CCD ---
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 [Hypomagnesemia] Onset: 0 10-26-2019 Chronic Other nutritional; endocrine; and metabolic disorders (3 sources) Obese class I; 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: [Obesity, unspecified] 12-02-2017 Chronic Other nutritional; endocrine; and metabolic disorders (1 source) Hypomagnesemia; 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: [Hypomagnesemia] Onset: 2 Chronic Other upper respiratory infections (4 sources) Upper respiratory infection; 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: [Acute upper [...] Onset: 3 01-07-2023 Episodic Residual codes; unclassified (3 sources) Family history of aneurysm of artery; 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: [Family history of ischemic heart disease and other diseases of the circulatory system] 12-02-2017 Episodic Residual codes; unclassified (2 sources) Physical deconditioning 10-31-2024 Episodic Residual codes; unclassified (2 sources) Other specified health status; 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: [Failure of outpatient treatment] 01-07-2025 Episodic Residual codes; unclassified (2 sources) Edema, generalized; 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: [Generalized edema] 01-07-2025 Episodic Superficial injury; contusion (2 sources) Contusion of chest; 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: [Contusion of unspecified front wall of thorax, initial encounter] 04-15-2023 Episodic Transient cerebral ischemia (3 sources) Transient cerebral ischemia; 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: [Transient cerebral ischemic attack, unspecified] Onset: 5 01-08-2025 Chronic Unclassified (2 sources) Patient encounter status; 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: [Routine health maintenance] Onset: 4 01-18-2019 Unclassified (3 sources) Drug therapy finding; 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: [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 therapy] Onset: 7 01-18-2019 Unclassified (2 sources) Longstanding persistent atrial fibrillation; 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: [Longstanding persistent atrial fibrillation (HCC)] Onset: 4 Unclassified (1 source) Call the office to confirm an appointment next week Unclassified (1 source) February 05, 2025 at 9 AM, please arrive 15 minutes early to fill out paperwork Viral infection (1 source) Herpes zoster without [...] findings in serum] Onset: 03-23-2022 03-23-2022 Episodic Other acquired deformities (20 sources) Lumbar spondylolisthesis; 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: [Spondylolisthesis, lumbar region] Onset: 07-07-2022 Episodic Other aftercare (20 sources) Long-term current use of anticoagulant; 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: [prison (current) use of anticoagulants] Onset: 11-20-2013 01-18-2019 Episodic Other aftercare (20 sources) 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; 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: [prison (current) use of antithrombotics/ant iplatelets] Onset: 03-21-2022 03-21-2022 Episodic Other aftercare (20 sources) Acquired platelet function disorder; 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: [prison (current) use of antithrombotics/ant iplatelets] Onset: 03-21-2022 03-21-2022 Episodic Other aftercare (20 sources) Long-term current use of drug therapy; 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: [Other long chain quiller tender (current) drug therapy] Onset: 10-20-2016 Resolved: 09-12-2021 09-12-2021 Episodic Other and unspecified benign neoplasm (20 [...] pulmonary nodule] Onset: 03-22-2022 03-22-2022 Episodic Other non-traumatic joint disorders (20 sources) [...] sources) SUMMARY Onset: 12-09-2013 Resolved: 12-22-2018 06-30-2021 Unclassified (2 sources) history bilateral ear surgeries 02-02-2022 Unclassified (2 sources) history skin cancer surgery 02-02-2022 Results Test Name Value Interpretation Reference Range Facility Anion gap in Serum or Plasma Ordered By: Dianne Stovall on 01-11-2025 Anion gap [Moles/Vol] 13 mmol/L - [facility] BUN/creatinine ratioOrdered By: Dianne Stovall on 01-11-2025 Urea nitrogen/Creatinine [Mass ratio] 20.6 mg/mg High 04-23 [facility] Basic Metabolic Profile (BMP )on 01-11-2025 BUN/CRE 20.6 RATIO High 04-23 [facility] Comment on above: Performed By: #### L 500.2500 #### [facility] [address] [place], [address] Calcium [Mass/Vol] 9.0 mg/dL Normal 7.6-11.0 [facility] Comment on above: Performed By: #### L 500.2500 #### [facility] [address] [place], [address] Chloride [Moles/Vol] 95 mmol/L Low 98-108 [facility] Comment on above: Performed By: #### L 500.2500 #### [facility] [address] [place], [address] CO2 [Moles/Vol] 25.5 mmol/L Normal 21.0-32.0 [facility] Comment on above: Performed By: #### L [id number] #### [facility] [address] [place], [address] Creatinine [Mass/Vol] 1.97 mg/dL High 0.70-1.20 [facility] Comment on above: Performed By: #### L 500.2500 #### [facility] [address] [place], [address] ECRCL 21.99 ml/min Low 50-250 [facility] Comment on above: Performed By: #### L [id number] #### [facility] [address] [place], [address] GAP 13 Normal 5-15 [facility] Comment on above: Performed By: #### L 500.2500 #### [facility] [address] [place], [address] GFR/1.73 sq M.predicted among non-blacks MDRD (S/P/Bld) [Vol rate/Area] 25 mL/min/{1.73_m2} Low >60 [facility] Comment on above: Result Comment: mL/m in/1.73m2 CKD-EPI Creatinine Equation (2020) Performed By: #### L 500.2500 #### [facility] [address] [place], [address] Glucose [Mass/Vol] 117 mg/dL High 70-99 [facility] Comment on above: Performed By: #### L 500.2500 #### [facility] [address] [place], [address] Potassium [Moles/Vol] 4.4 mmol/L Normal 3.3-5.1 [facility] Comment on above: Performed By: #### L [id number] #### [facility] [address] [place], [address] Sodium [Moles/Vol] 134 mmol/L Normal 133-145 [facility] Comment on above: Performed By: #### L [id number] #### [facility] [address] [place], [address] Urea nitrogen [Mass/Vol] 41 mg/dL High 4-19 [facility] Comment on above: Performed By: #### L 500.2500 #### [facility] [address] [place], [address] Bedside Glucoseon 01-11-2025 FINGERSTICK GLU 116 mg/dL High 74-106 [facility] Comment on above: Result Comment: JOHNSON MCCORMACK OF PATIENT CARE PER NURSING PROTOCOL Performed By: #### L 501.080 #### [facility] [address] [place], [address] Carbon dioxide, total [Moles /volume] in Central venous bloodOrdered By: Dianne Stovall on 01-11-2025 CO2 [Moles/Vol] 25.5 mmol/L 21.0-32.0 [facility] Chloride assayOrdered By: Luis Stovall on 01-11-2025 Chloride [Moles/Vol] 95 mmol/L Low 98-108 [facility] Discharge Instructionon 01-02 Discharge Instruction [facility] Medical Records Department [address] [place] [address] Instructions for Home/Discharge Instructions 01/11/25 1226 MR#: [id number] Acct: [id number] Name: BERTA SANCHES SCOTTIE Rep #: [id number] : 1945 79 From: Dianne Stovall DO PCP: Deysi Collazo NP-C Status:ADM IN Discharge Instructions Diet Discharge Diet: 1800 Calorie Control Diet DC O2, CPAP, BIPAP needs Home O2 Discharge instructions: No Dressing / Incision Discharge Activity: Return to Normal Activity Weight Bearing Status: Full weight bearing Follow Up Care Test Results: Test results from this visit will be discussed in further detail at your follow-up appointment, if applicable. Discharge Plan Admission Admit Date/Time: 01/07/25 16:29 Primary Reason for Your Visit: chf Attending Provider: Dianne Stovall Primary Care Provider: Deysi Collazo NP Consulting Providers: Radha Heller; Jeremy Mcgarry Discharge Orders/Prescriptions Prescriptions: New potassium chloride 10 mEq Tablet,Er Particles/Crystals 20 meq PO DAILYCM Qty: 60 0RF bumetanide 2 mg tablet 2 mg PO BID Qty: 60 0RF metolazone 5 mg tablet 5 mg PO DAILY Qty: 30 0RF Continued metoprolol succinate 25 mg tablet extended release 24 hr 50 mg PO BID Patient Comments: TAKE 1 TABLET BY MOUTH EVERY DAY aspirin 81 mg capsule 81 mg PO DAILY clopidogrel 75 mg tablet 75 mg PO DAILY ferrous sulfate [Feosol] 325 mg (65 mg iron) tablet 325 mg PO DAILY atorvastatin 40 mg tablet 40 mg PO DAILY pantoprazole 40 mg tablet,delayed release (DR/EC) 40 mg PO BID psyllium 3.4 gram/5.8 gram powder 3.4 g PO BID spironolactone 25 mg tablet 12.5 mg PO BID Discontinued furosemide 20 MG tablet 40 mg PO BID metolazone 2.5 mg tablet 2.5 mg PO DAILY PRN (Reason: edema) potassium chloride 10 mEq tablet extended release 10 meq PO DAILY Referrals / Follow Up: Jeremy Mcgarry MD [Med Staff - Consulting] - In 1 Week (Call the office to confirm an appointment next week) Juan Diego Huynh MD [Med Staff - Active Staff] - See Referral Note (February 05, 2025 at 9 AM, please arrive 15 minutes early to fill out paperwork) Mars Hernandez MD [Non-Staff] - Deysi Collazo NP, BACK TENDER CYLINDER-C [Primary Care Provider] - Disposition Disposition (needs filled in before D/C Order can be placed): Home, Self Care 01/11/25 1230 Dianne Stovall DO CC: BACK TENDER CYLINDER-C Deysi Collazo; Dr. Jeremy Mcgarry MD; Dr. Radha Heller MD Signed Normal [facility] Glomerular filtration rate ( GFR) estimation/1.73 sq m using serum, plasma, or whole bOrdered By: Dianne Stovall on 01-11-2025 GFR/1.73 sq M.predicted among non-blacks MDRD (S/P/Bld) [Vol rate/Area] 25 mL/min/{1.73_m2} Low >60 [facility] Comment on above: mL/min/1.73m2 CKD-EP I Creatinine Equation (2020) [facility] deOrdered By: Dianne Stovall on 01-11-2025 Glucose [Mass/Vol] 116 mg/dL High 74-106 [facility] Comment on above: MANAGEMENT OF PATIEN T CARE PER NURSING PROTOCOL Potassium measurement (mass/ volume)Ordered By: Dianne Stovall on 01-11-2025 Potassium (Unsp spec) [Mass/Vol] 4.4 mmol/L 3.3-5.1 [facility] Serum creatinine measurement (mass/volume)Ordered By: Dianne Stovall on 01-11-2025 Creatinine [Mass/Vol] 1.97 mg/dL High 0.70-1.20 [facility] Serum glucose measurement (m ass/volume)Ordered By: Dianne Stovall on 01-11-2025 Glucose [Mass/Vol] 117 mg/dL High 70-99 [facility] Serum or plasma calcium bijan urement (mass/volume)Ordered By: Dianne Stovall on 01-11-2025 Calcium [Mass/Vol] 9.0 mg/dL 7.6-11.0 [facility] Serum or plasma urea nitroge n measurement (mass/volume)Ordered By: Dianne Stovall on 01-11-2025 Urea nitrogen [Mass/Vol] 41 mg/dL High 4-19 [facility] Sodium levelOrdered By: Dianne Stovall on 01-11-2025 Sodium [Moles/Vol] 134 mmol/L 133-145 [facility] Bedside Glucoseon 01-10-2025 FINGERSTICK GLU 126 mg/dL High 74-106 [facility] Comment on above: Result Comment: JOHNSON GEMENT OF PATIENT CARE PER NURSING PROTOCOL Performed By: #### L 501.080 #### [facility] [address] [place], [address] FINGERSTICK GLU 133 mg/dL High 74-106 [facility] Comment on above: Result Comment: JOHNSON GEMENT OF PATIENT CARE PER NURSING PROTOCOL Performed By: #### L 500.2500 #### [facility] [address] [place], [address] FINGERSTICK GLU 134 mg/dL High 74-106 [facility] Comment on above: Result Comment: JOHNSON GEMENT OF PATIENT CARE PER NURSING PROTOCOL Performed By: #### L 501.080 #### [facility] [address] [place], [address] Basic Metabolic Profile (BMP )on 01-09-2025 BUN/CRE 23.6 RATIO High 10-20 [facility] Comment on above: Performed By: #### L 500.2500 #### [facility] [address] [place], [address] Calcium [Mass/Vol] 8.9 mg/dL Normal 7.6-11.0 [facility] Comment on above: Performed By: #### L 500.2500 #### [facility] [address] [place], [address] Chloride [Moles/Vol] 95 mmol/L Low 98-108 [facility] Comment on above: Performed By: #### L 500.2500 #### [facility] [address] [place], [address] CO2 [Moles/Vol] 24.5 mmol/L Normal 21.0-32.0 [facility] Comment on above: Performed By: #### L 500.2500 #### [facility] [address] [place], [address] Creatinine [Mass/Vol] 1.85 mg/dL High 0.70-1.20 [facility] Comment on above: Performed By: #### L 500.2500 #### [facility] [address] [place], [address] ECRCL 23.14 ml/min Low 50-250 [facility] Comment on above: Performed By: #### L 500.2500 #### [facility] [address] [place], [address] GAP 13 Normal 5-15 [facility] Comment on above: Performed By: #### L 500.2500 #### [facility] [address] [place], [address] GFR/1.73 sq M.predicted among non-blacks MDRD (S/P/Bld) [Vol rate/Area] 27 mL/min/{1.73_m2} Low >60 [facility] Comment on above: Result Comment: mL/m in/1.73m2 CKD-EPI Creatinine Equation (2020) Performed By: #### L 500.2500 #### [facility] [address] [place], [address] Glucose [Mass/Vol] 135 mg/dL High 70-99 [facility] Comment on above: Performed By: #### L 500.2500 #### [facility] [address] [place], [address] Potassium [Moles/Vol] 4.5 mmol/L Normal 3.3-5.1 [facility] Comment on above: Performed By: #### L 500.2500 #### [facility] [address] [place], [address] Sodium [Moles/Vol] 133 mmol/L Normal 133-145 [facility] Comment on above: Performed By: #### L 500.2500 #### [facility] [address] [place], [address] Urea nitrogen [Mass/Vol] 44 mg/dL High 4-19 [facility] Comment on above: Performed By: #### L 500.2500 #### [facility] [address] [place], [address] Bedside Glucoseon 01-09-2025 FINGERSTICK GLU 111 mg/dL High 74-106 [facility] Comment on above: Result Comment: JOHNSON GEMENT OF PATIENT CARE PER NURSING PROTOCOL Performed By: #### L 500.2500 #### [facility] [address] [place], [address] FINGERSTICK GLU 214 mg/dL High 74-106 [facility] Comment on above: Result Comment: JOHNSON GEMENT OF PATIENT CARE PER NURSING PROTOCOL Performed By: #### L 501.080 #### [facility] [address] [place], [address] FINGERSTICK GLU 132 mg/dL High 74-106 [facility] Comment on above: Result Comment: JOHNSON GEMENT OF PATIENT CARE PER NURSING PROTOCOL Performed By: #### L 501.080 #### [facility] [address] [place], [address] Absolute lymphocyte countOrd ered By: Radha Heller on 01-08-2025 Lymphocytes Auto (Unsp spec) [#/Vol] 2.11 10*3/uL 0.83-4.51 [facility] Absolute neutrophil countOrd ered By: Radha Heller on 01-08-2025 Neutrophils (Bld) [#/Vol] 3.0 10*3/uL 2.0-7.7 [facility] Automated lymphocyte count a s percentage of total leukocytesOrdered By: Radha Heller on 01-08-2025 Lymphocytes/100 WBC Auto (Unsp spec) 33.8 % 19-41 [facility] Basic Metabolic Profile (BMP )on 01-08-2025 BUN/CRE 24.9 RATIO High 10-20 [facility] Comment on above: Performed By: #### L 499.0042 #### [facility] [address] [place], [address] Calcium [Mass/Vol] 8.8 mg/dL Normal 7.6-11.0 [facility] Comment on above: Performed By: #### L 499.0042 #### [facility] [address] [place], [address] Chloride [Moles/Vol] 93 mmol/L Low 98-108 [facility] Comment on above: Performed By: #### L 499.0042 #### [facility] [address] [place], [address] CO2 [Moles/Vol] 25.7 mmol/L Normal 21.0-32.0 [facility] Comment on above: Performed By: #### L 499.0042 #### [facility] [address] [place], [address] Creatinine [Mass/Vol] 1.79 mg/dL High 0.70-1.20 [facility] Comment on above: Performed By: #### L 499.0042 #### [facility] [address] [place], [address] ECRCL 23.72 ml/min Low 50-250 [facility] Comment on above: Performed By: #### L 499.0042 #### [facility] [address] [place], [address] GAP 12 Normal 5-15 [facility] Comment on above: Performed By: #### L 499.0042 #### [facility] [address] [place], [address] GFR/1.73 sq M.predicted among non-blacks MDRD (S/P/Bld) [Vol rate/Area] 28 mL/min/{1.73_m2} Low >60 [facility] Comment on above: Result Comment: mL/m in/1.73m2 CKD-EPI Creatinine Equation (2020) Performed By: #### L 499.0042 #### [facility] [address] [place], [address] Glucose [Mass/Vol] 129 mg/dL High 70-99 [facility] Comment on above: Performed By: #### L 499.0042 #### [facility] [address] [place], [address] Potassium [Moles/Vol] 4.1 mmol/L Normal 3.3-5.1 [facility] Comment on above: Performed By: #### L 499.0042 #### [facility] [address] [place], [address] Sodium [Moles/Vol] 130 mmol/L Low 133-145 [facility] Comment on above: Performed By: #### L 499.0042 #### [facility] [address] [place], [address] Urea nitrogen [Mass/Vol] 45 mg/dL High 4-19 [facility] Comment on above: Performed By: #### L 499.0042 #### [facility] [address] [place], [address] Basophil percentageOrdered B y: Radha Heller on 01-08-2025 Basophils/100 WBC (Bld) 1.0 % 0-1 [facility] Bedside Glucoseon 01-08-2025 FINGERSTICK GLU 184 mg/dL High 74-106 [facility] Comment on above: Result Comment: JOHNSON GEMENT OF PATIENT CARE PER NURSING PROTOCOL Performed By: #### L 500.2500 #### [facility] [address] [place], [address] FINGERSTICK GLU 136 mg/dL High 74-106 [facility] Comment on above: Result Comment: JOHNSON GEMENT OF PATIENT CARE PER NURSING PROTOCOL Performed By: #### L 501.080 #### [facility] [address] [place], [address] FINGERSTICK GLU 124 mg/dL High 74-106 [facility] Comment on above: Result Comment: JOHNSON GEMENT OF PATIENT CARE PER NURSING PROTOCOL Performed By: #### L 499.0042 #### [facility] [address] [place], [address] Blood manual differential co mment interpretation (narrative result)Ordered By: Radha Heller on 01-08-2025 Manual differential comment Cristhian (Bld) [Interp] SCANNED [facility] CBC W/Diff, Automatedon RED CELL MORPH NORM C+C Normal NORM C C [facility] Comment on above: Performed By: #### L 499.0042 #### [facility] [address] [place], [address] PLT EST ADEQUATE Normal ADEQ [facility] Comment on above: Performed By: #### L 499.0042 #### [facility] [address] [place], [address] SMEAR COMMENT SCANNED Normal [facility] Comment on above: Performed By: #### L 499.0042 #### [facility] [address] [place], [address] Calculated very low density lipoprotein (VLDL) cholesterol measurementOrdered By: Radha Heller on 01-08-2025 Calculated very low density lipoprotein (VLDL) cholesterol measurement 14 mg/dL 5-40 [facility] Carotid Duplex Ultrasoundon 01-08-2025 Carotid Duplex Ultrasound [facility] [address] [place] [address] Carotid Duplex Ultrasound 01/08/25 0841 MR#: [id number] Acct: [id number] Name: BERTA SANCHES Rep #: [id number] : 1945 79 From: Abundio Turcios MD Attending Dr: Dr. Dianne Stovall, DO Status: A DM IN Ordering Dr: Carla Ha DO Date: 01/08/25 Location: U Sex: F C Admitted: 01/07/25 Reason For Study Reason For Study: Evaluate for stenosis Rt. Velocities/BP Lt. Velocities/BP Prox CCA 49.4/6 cm/sec. Prox CCA 41/3.6 cm/sec. Mid CCA 38.1/5 cm/sec. Mid CCA 41/6.9 cm/sec. Dist CCA 36.2/6 cm/sec. Dist CCA 41/5.8 cm/sec. Prox ICA 101.6/24.8 cm/sec. Prox ICA 112/13.3 cm/sec. Mid ICA 74.1/9.8 cm/sec. Mid ICA 82.9/16.9 cm/sec. Dist ICA 64.5/13.3 cm/sec. Dist ICA 70.1/19.3 cm/sec. Rt. ICA/CCA = 2.67. Lt. ICA/CCA = 2.73. Prox ECA 57 cm/sec. Prox ECA 60.8 cm/sec. Rt. Vert. 71.8/13.3 cm/sec. Lt. Vert. 44.3/6.9 cm/sec. Right Extracranial There is heterogeneous, irregular atherosclerotic plaque noted in the right common carotid artery. There is heterogeneous, irregular atherosclerotic plaque noted in the right internal carotid artery. There is heterogeneous, irregular atherosclerotic plaque noted in the right external carotid artery. Antegrade flow is noted in the right vertebral artery. Left Extracranial There is heterogeneous, irregular atherosclerotic plaque noted in the left common carotid artery. There is heterogeneous, irregular atherosclerotic plaque noted in the left internal carotid artery. There is intimal thickening but no significant atherosclerotic plaque noted in the left external carotid artery. Antegrade flow is noted in the left vertebral artery. Procedure Carotid Duplex [id number]. This is a Carotid Duplex examination using B-mode, color flow and specral Doppler. Exam performed portable in patient room. VL/Carotid Duplex Ultrasound Interpretation Summary Mild (<50%) stenosis right extracranial internal carotid. Mild (<50%) stenosis left extracranial internal carotid. Patent and antegrade vertebrals bilaterally. Ordering Physician: Carla Ha Referring Physician: Deysi Collazo Performed By: Sony Perez RVT 01/08/25 1244 Date Abundio Turcios MD CC: JARROD Collazo; Dr. Carla Ha DO; Dr. Dianne Stovall DO Date Dictated: 01/08/25 0841 Date Transcribed: 01/08/25 1244 Supervisory Forester: Signed Normal [facility] Consultation - Nephrologyon 01-08-2025 Consultation - Nephrology [facility] Medical Records Department [address] [place] [address] Consultation - Nephrology 01/08/25 1655 MR#: [id number] Acct: [id number] Name: TAMERA SANCHESRA RUBIN Rep #: [id number] : 1945 79 From: Jeremy Mcgarry MD PCP: Deysi Collazo NP-[place] Status:ADM IN Location: [facility] [id number] Assessment Plan Assessment/Plan (1) Chronic kidney disease, stage 3b: PLAN: Reviewed records from [facility] where her primary care physician is, from care everywhere from [facility] During her hospitalization in October, [facility] where she was admitted in December. She has had unfortunately 3 hospitalizations within the last 3 months. says that she is having mental stress from all these hospitalizations. Events include #1. Heart failure. Looks like diastolic. EF is okay. BNP has been consistently in the thousands. Reviewed medication list, she was supposed to be on Lasix 80 mg / 40 mg but looks like she may be taking 40 mg twice a day. Spironolactone 25 mg once a day. Metolazone 2.5 mg as needed is on the medication list but both patient and have confirmed that she is not taking that. Farxiga is on the medication list but she thinks that she could not take it because it was very expensive. Baseline weight is around 139 pounds. As high as 154 pounds. Discussed with hospitalist. To be started on Lasix drip today. Eventually plan is to send her home with either Lasix 80 mg twice a day or Bumex 2 mg twice a day. Metolazone for any weight more than 144 pounds. Spironolactone as before. I have asked them to call their insurance company about the alternatives for Farxiga including Jardiance/Steglatro. If any of them is reasonably priced it probably works well for her to take. 2. Renal failure. Baseline creatinine appears to be around 1.3-1.4. She had acute renal failure, required CRRT for about 1 day. Recovered renal function. Most often creatinine in the last 3 months has been between 1.8-2.0. No significant proteinuria. 3. Atherosclerosis. 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 She also has left-sided renal artery stenosis which was confirmed on repeat renal Doppler. She recently saw Dr. Shasta Silva and no intervention was planned since it was unilateral stenosis. Discussed with . We reviewed the medication list, daily weights. Discussed with hospitalist about plan (2) MONIQUE (acute kidney injury): HPI Consult Data Date of Consult: 01/08/25 HPI Narrative Reason for Consultation: monique vs ckd 3b HPI Narrative: BERTA SANCHES, is a 79 F who presents to the hospital with shortness of breath. Nephrology on consultation in view of kidney disease. Somewhat complicated course recently. She is originally from [place], was in [place] for the winter, had a long hospitalization in [facility]. History of congestive heart failure with diastolic dysfunction, BNP has been consistently high. Was seeing cardiology at [facility]. Has been on diuretic, despite that worsening heart failure. Apparently gained more than 10 pounds. Baseline weight is around 140 pounds, went up to 154 pounds. Being started on Lasix drip. [facility] Medical History (Updated 01/08/25 @ 16:[address] Jeremy Mcgarry MD) Skin tear of left forearm without complication [...] (upper respiratory infection) Bronchospasm with bronchitis, acute Home Medications ???Medication ???Instructions ???Recorded ???Last Taken ???Type metoprolol succinate 25 mg 50 mg PO BID heart 02/13/21 Unknow n History tablet,extended release 24 hr aspirin 81 mg capsule 81 mg PO DAILY 01/07/25 Unknown Hi story atorvastatin 40 mg tablet 40 mg PO DAILY daily 01/07/25 Unkn own History clopidogrel 75 mg tablet 75 mg PO DAILY 01/07/25 Unknown Hi story ferrous sulfate 325 mg (65 mg 325 mg PO DAILY 01/07/25 Unknown H istory iron) tablet (Feosol) pantoprazole 40 mg tablet,delayed 40 mg PO BID stomach 01/07/25 Unk nown History release psyllium 3.4 gram/5.8 gram oral 3.4 g PO BID daily 01/07/25 Unknow n History powder spironolactone 25 mg tablet 12.5 mg PO BID daily 01/07/25 Unkn own History bumetanide 2 mg tablet 2 mg PO BID #60 tabs 01/08/25 Unkn own Rx metolazone 5 mg tablet 5 mg PO DAILY #30 tabs 01/08/25 Un known Rx potassium chloride 10 mEq 20 meq (2 x 10 mEq) PO DAILYCM #60 01/08/25 Unknown Rx tablet,extended release(part/cryst) tabs (more content not included)... Normal [facility] Discharge Instructionon Discharge Instruction [facility] Medical Records Department [address] [place] [address] Instructions for Home/Discharge Instructions 01/08/25 1536 MR#: [id number] Acct: [id number] Name: BERTA SANCHES Rep #: [id number] : 1945 79 From: Dianne Stovall DO PCP: JARROD Cantu Status:ADM IN Discharge Instructions Diet Discharge Diet: 1800 Calorie Control Diet DC O2, CPAP, BIPAP needs Home O2 Discharge instructions: No Dressing / Incision Discharge Activity: Return to Normal Activity Weight Bearing Status: Full weight bearing Follow Up Care Test Results: Test results from this visit will be discussed in further detail at your follow-up appointment, if applicable. Discharge Plan Admission Admit Date/Time: 01/07/25 16:29 Primary Reason for Your Visit: chf Attending Provider: Dianne Stovall Primary Care Provider: Deysi Collazo NP Consulting Providers: Teo Blue; Lindsey Francisco; Yamileth Hassan; Josefina Arrieta; Charley Berger; Tacos Edouard; Sydney Jarvis; Marty Hopkins; Tai Chavez; Jose John; Karyna Gates; Panda Hein; Chelsi Pulido; Lili Newman; Tulio Pittman; Jonathan Funez; Red Lucia; Gurpreet Geronimo; Noris Brock; Jessa Lee; Radha Heller; Jeremy Mcgarry Discharge Orders/Prescriptions Prescriptions: New potassium chloride 10 mEq Tablet,Er Particles/Crystals 20 meq PO DAILYCM Qty: 60 0RF bumetanide 2 mg tablet 2 mg PO BID Qty: 60 0RF metolazone 5 mg tablet 5 mg PO DAILY Qty: 30 0RF Continued metoprolol succinate 25 mg tablet extended release 24 hr 50 mg PO BID Patient Comments: TAKE 1 TABLET BY MOUTH EVERY DAY aspirin 81 mg capsule 81 mg PO DAILY clopidogrel 75 mg tablet 75 mg PO DAILY ferrous sulfate [Feosol] 325 mg (65 mg iron) tablet 325 mg PO DAILY atorvastatin 40 mg tablet 40 mg PO DAILY pantoprazole 40 mg tablet,delayed release (DR/EC) 40 mg PO BID psyllium 3.4 gram/5.8 gram powder 3.4 g PO BID spironolactone 25 mg tablet 12.5 mg PO BID Discontinued furosemide 20 MG tablet 40 mg PO BID metolazone 2.5 mg tablet 2.5 mg PO DAILY PRN (Reason: edema) potassium chloride 10 mEq tablet extended release 10 meq PO DAILY Referrals / Follow Up: Juan Diego Huynh MD [Med Staff - Active Staff] - See Referral Note (February 05, 2025 at 9 AM, please arrive 15 minutes early to fill out paperwork) Mars Hernandez MD [Non-Staff] - Deysi Collazo NP, BACK TENDER CYLINDER-C [Primary Care Provider] - Disposition Disposition (needs filled in before D/C Order can be placed): Home, Self Care 01/09/25 0902 Dianne Stovall DO CC: Josefina Arrieta; Chelsi Pulido; BACK TENDER CYLINDER-C Deysi Collazo; Jonathan Funez; Charley Berger MD; Yamileth Hassan MD; Teo Blue MD; Dr. Lindsey Francisco MD; Dr. Tacos Edouard MD; Dr. Sydney Jarvis MD; Dr. Tai Chavez MD; Dr. Marty Hopkins MD; Dr. Jeremy Mcgarry MD; Dr. Jose John MD; Dr. Panda Hein DO; Dr. Tulio Pittman MD; Dr. Lili Newman MD; Dr. Radha Hellre MD; Dr. Red Lucia MD; Dr. Gurpreet Geronimo MD; Dr. Noris Brock MD; Karyna Gates DO; Jessa Lee MD Signed Normal [facility] Duplex ultrasound of carotid artery reportOrdered By: Abundio Turcios on 01-08-2025 Study report [facility] Cardiovascular Services [address] [place] [address] Carotid Duplex Ultrasound 01/08/25 0841 MR#: [id number] Acct: [id number] Name: BERTA SANCHES Rep #:[id number] : 1945 79 From: Abundio Molina Attending Dr: Dr. Dianne Stovall DO Status: ADM IN Ordering Dr: Carla Ha DO Date: 01/08/25 Location: [facility] Sex: F C Admitted: 01/07/25 Reason For Study Reason For Study: Evaluate for stenosis Rt. Velocities/BP Lt. Velocities/BP Prox CCA 49.4/6 cm/sec. Prox CCA 41/3.6 cm/sec. Mid CCA 38.1/5 cm/sec. Mid CCA 41/6.9 cm/sec. Dist CCA 36.2/6 cm/sec. Dist CCA 41/5.8 cm/sec. Prox ICA 101.6/24.8 cm/sec. Prox ICA 112/13.3 cm/sec. Mid ICA 74.1/9.8 cm/sec. Mid ICA 82.9/16.9 cm/sec. Dist ICA 64.5/13.3 cm/sec. Dist ICA 70.1/19.3 cm/sec. Rt. ICA/CCA = 2.67. Lt. ICA/CCA = 2.73. Prox ECA 57 cm/sec. Prox ECA 60.8 cm/sec. Rt. Vert. 71.8/13.3 cm/sec. Lt. Vert. 44.3/6.9 cm/sec. Right Extracranial There is heterogeneous, irregular atherosclerotic plaque noted in the right common carotid artery. There is heterogeneous, irregular atherosclerotic plaque noted in the right internal carotid artery. There is heterogeneous, irregular atherosclerotic plaque noted in the right external carotid artery. Antegrade flow is noted in the right vertebral artery. Left Extracranial There is heterogeneous, irregular atherosclerotic plaque noted in the left common carotid artery. There is heterogeneous, irregular atherosclerotic plaque noted in the left internal carotid artery. There is intimal thickening but no significant atherosclerotic plaque noted in the left external carotid artery. Antegrade flow is noted in the left vertebral artery. Procedure Carotid Duplex 13762. This is a Carotid Duplex examination using B-mode, color flow and specral Doppler. Exam performed portable in patient room. VL/Carotid Duplex Ultrasound Interpretation Summary Mild (<50%) stenosis right extracranial internal carotid. Mild (<50%) stenosis left extracranial internal carotid. Patent and antegrade vertebrals bilaterally. Ordering Physician: Carla Ha Referring Physician: Deysi Collazo Performed By: Sony Perez RVT 01/08/25 1244 Date _ Abundio Turcios MD CC: BACK TENDER CYLINDER-C Deysi Collazo; Dr. Carla Ha DO; Dr. Dianne Stovall DO ~ Date Dictated: 01/08/2541 Date Transcribed: 01/08/25 1244 Supervisory Forester: Signed [facility] Work Phone: Echocardiogram study reportO rdered By: Yaniv Masters on 01-08-2025 Study report [facility] Cardiovascular Services [address] [place] [id number] Echo Complete 01/08/25 1058 MR#: [id number] Acct: [id number] Name: BERTA SANCHES Rep #:[id number] : 1945 79 From: Yaniv Molina Attending Dr: Dr. Dianne Stovall DO Status: ADM IN Ordering Dr: Radha Heller MD Date: Location: [facility] Sex: F C Admitted: 01/07/25 Reason For Study Reason For Study: CHF Procedure This was a 2D Doppler, Color Flow transthoracic echocardiogram. Exam performed portable in patient room. Left Ventricle Normal LV size. D shaped septum in diastole. Moderate concentric left ventricular hypertrophy. The left ventricular ejection fraction is 50 %. Stage 3 diastolic dysfunction. No regional wall motion abnormalities noted. Right Ventricle Moderately dilated right ventricle. ICD or pacer leads identified within the right ventricle. Mild to moderate global right ventricular systolic dysfunction. Atria The left atrium is severely enlarged. The right atrium is moderately enlarged. Mitral Valve Bileaflet diffuse mitral valve thickening. Peak transmitral valve gradient 15 mmHg. Mean transmitral valve gradient 5 mmHg. Moderate (2+) posteriorly directed mitral valve insufficiency. Tricuspid Valve Normal tricuspid valve. Moderate (2+) tricuspid valve insufficiency. Aortic Valve Peak aortic valve gradient 20 mmHg. Mean aortic valve gradient 11 mmHg. Mild (1+) aortic valve insufficiency. Bioprosthetic aortic valve. Pulmonic Valve Normal pulmonic valve. Mild-Moderate (1-2+) pulmonic valve insufficiency. MMode/2D Measurements & Calculations LVIDd: 4.5 cm IVSd: 1.5 cm LVOT diam: 2.0 cm LVIDs: 3.0 cm LVPWd: 1.4 cm LVOT area: 3.2 cm2 RVDd: 5.4 cm FS: 32.3 % LAV(MOD-bp): 96.5 ml RVOT diam: 2.7 cm MVA(traced): 3.2 cm2 LAV(MOD-bp) Indexed: 56.2 ml/m2 LAV(MOD-sp2): 80.9 ml LAV(MOD-sp4): 117.8 ml LVAd ap4: 33.0 cm2 SV(MOD-sp4): 58.3 ml SV(sp4-el): 59.0 ml LVLd ap4: 8.2 cm SI(MOD-sp4): 34.0 ml/m2 EDV(MOD-sp4): 111.5 ml EDV(sp4-el): 112.8 ml LVAs ap4: 21.5 cm2 LVLs ap4: 7.3 cm ESV(MOD-sp4): 53.2 ml ESV(sp4-el): 53.8 ml EF(MOD-sp4): 52.3 % EF(sp4-el): 52.3 % LA dimension(2D): 5.3 cm LA A4 area: 30.5 cm2 RA A4 area: 28.8 cm2 Time Measurements MV dec time: 0.34 sec Doppler Measurements & Calculations MV E max aysha: 185.2 cm/sec MV V2 max: 192.2 cm/sec MV A max aysha: 64.5 cm/sec MV max P.8 mmHg MV dec slope: 545.2 cm/sec2 MV E/A: 2.9 MV V2 mean: 99.5 cm/sec MV mean P.0 mmHg MV V2 VTI: 43.8 cm MVA(VTI): 1.5 cm2 Ao V2 max: 225.8 cm/sec AI max aysha: 453.8 cm/sec LV V1 max: 109.2 cm/sec Ao max P.5 mmHg AI max P.6 mmHg LV V1 max P.8 mmHg Ao V2 mean: 154.1 cm/sec AI dec slope: 448.8 cm/sec2 LV V1 mean P.3 mmHg Ao mean P.5 mmHg AI P1/2t: 296.1 msec LV V1 mean: 71.5 cm/sec Ao V2 VTI: 41.2 cm LV V1 VTI: 20.6 cm AV (velocity ratio): 0.50 LISBETH(I,D): 1.6 cm2 LISBETH(V,D): 1.5 cm2 MR max aysha: 623.4 cm/sec SV(LVOT): 65.5 ml PA V2 max: 96.6 cm/sec MR max P.4 mmHg PA V2 mean: 67.7 cm/sec MR mean aysha: 451.3 cm/sec PA mean PG (full): 1.5 mmHg MR mean P.6 mmHg MR VTI: 200.6 cm PI end-d aysha: 151.6 cm/sec SV(RVOT): 66.7 ml TR max aysha: 374.9 cm/sec TR max P.2 mmHg Qp/Qs: 1.0/1.0 ECHO/Echo Complete Interpretation Summary Normal LV size. The left ventricular ejection fraction is 50 %. Stage 3 diastolic dysfunction. Mean transmitral valve gradient 5 mmHg. Moderate mitral stenosis Heart rate at the time of examination was 79 bpm ICD or pacer leads identified within the right ventricle. D shaped septum in diastole. Moderate concentric left ventricular hypertrophy. Bioprosthetic aortic valve. Mean aortic valve gradient 11 mmHg. Ordering Physician: Radha Heller Performed By: Edy Victor RCS 01/08/25 1302 Date _ Yaniv Masters MD CC: JARROD Collazo; Dr. Dianne Stovall DO; Dr. Radha Heller MD ~ Date Dictated: 01/08/25 1058 Date Transcribed: 01/08/25 1302 Supervisory Forester: Signed [facility] Work Phone: Electrocardiogram reportOrde red By: Yaniv Masters on 01-08-2025 EKG study [facility] Cardiovascular Services [address] [place] [address] 12 Lead EKG 01/07/25 1257 MR#: [id number] Acct: [id number] Name: BERTA SANCHES Rep #:[id number] : 1945 79 From: Yaniv Masters MD Attending Dr: Dr. Dianne Stovall DO Status: ADM IN Ordering Dr: Sheree Simmons Date: 01/07/25 Location: [facility] Sex: F C Admitted: 01/07/25 Test Reason : SOB Blood Pressure : */* mmHG Vent. Rate : 77 BPM Atrial Rate : * BPM P-R Int : * ms QRS Dur : 114 ms QT Int : 440 ms P-R-T Axes : * -63 -53 degrees QTcB Int : 497 ms Atrial fibrillation with occasional ventricular-paced complexes Pulmonary disease pattern Left anterior fascicular block Minimal voltage criteria for LVH, may be normal variant ( [place] product ) Nonspecific ST and T wave abnormality QTcB >= 480 msec Abnormal ECG Confirmed by SONAM UGARTE, YANIV ([id number]), photo editor ROJELIO TADEO ([id number]) on 01/08/2025 11:01:47 AM Referred By: Confirmed By: YANIV MASTERS MD 01/08/25 1101 Date _ Yaniv Masters MD CC: JARROD Collazo; Dr. Dianne Stovall DO; FERNANDO Uriostegui ~ Signed [facility] Work Phone: Eosinophil percentageOrdered By: Radha Heller on 01-08-2025 Eosinophils/100 WBC (Bld) 2.1 % 0-5 [facility] Erythrocyte distribution wid th ratioOrdered By: Radha Heller on 01-08-2025 Erythrocyte distribution width (RBC) [Ratio] 19.8 % High 11.6-14.6 [facility] Erythrocyte distribution wid th standard deviationOrdered By: Radha Heller on 01-08-2025 Erythrocyte distribution width (RBC) [Ratio] 64.7 fl High 35.1-43.9 [facility] Erythrocyte morphology asses smentOrdered By: Radha Heller on 01-08-2025 RBC morphology finding Nom (Bld) NORM C+C NORMAL NORM C&C [facility] Hematocrit Auto (Bld) [Volum e fraction]Ordered By: Radha Heller on 07-07-2025 Hematocrit (Bld) [Volume fraction] 28.4 % Low 37-47 [facility] Hemoglobin A1con 01-08-2025 HbA1c (Bld) [Mass fraction] 7.0 % High <=5.6 [facility] Comment on above: Result Comment: Norm al < 5.7 % Prediabetic 5.7 - 6.4 % Diabetic >or= 6.5 % Please note range changes. Performed By: #### L 501.080 #### [facility] Laboratory [address] [place], [address] Hemoglobin A1c percentageOrd ered By: Carla Barksdale on 01-08-2025 HbA1c (Bld) [Mass fraction] 7.0 % High <5.7 [facility] Comment on above: Normal < 5.7 % Predi abetic 5.7 - 6.4 % Diabetic >or= 6.5 % Please note range changes. Hemoglobin measurementOrdere d By: Radha Heller on 01-08-2025 Hemoglobin (Bld) [Mass/Vol] 9.0 g/dL Low 12.0-15.0 [facility] Immature granulocytes/100 WB C Auto (Bld)Ordered By: Radha Heller on 01-08-2025 Immature granulocytes/100 WBC (Bld) 0.300 % 0.0-0.9 [facility] Comment on above: IG% - Immature Granu locytes (promyelocytes, myelocytes and metamyelocytes) > 1% indicates that a LEFT SHIFT is Present. LDL calc ser/plasOrdered By: Radha Heller on 01-08-2025 Cholesterol in LDL [Mass/Vol] 26 mg/dL [facility] Comment on above: Iaqldlcjyy=614-133 m g/dL & Higher Wvow=779 mg/dL or greater Lipid Profileon 01-08-2025 CHOL:HDL 2.38 Normal [facility] Comment on above: Performed By: #### L 500.2500 #### [facility] Laboratory [address] [place], [address] Cholesterol [Mass/Vol] 68 mg/dL Normal <=200 [facility] Comment on above: Result Comment: Chol esterol level, Desirable <200 mg/dL Borderline high cholesterol 200-239 mg/dL High cholesterol >=240 mg/dL Recommendations of the NCEP Adult Treatment Panel for the following risk-cutoff thresholds for the [place] population. Performed By: #### L 500.2500 #### [facility] [address] [place], [address] Cholesterol in HDL [Mass/Vol] 29 mg/dL Low [facility] Comment on above: Result Comment: [place]ia onal Cholesterol Education Program (NCEP) guidelines: <40 mg/dL: Low HDL-cholesterol (major risk factor for CHD) >= 60 mg/dL: High HDL-cholesterol (negative risk factor for CHD) HDL-cholesterol is affected by a number of factors, e.g. smoking, exercise, hormones, sex and age. Performed By: #### L 500.2500 #### [facility] [address] [place], [address] Cholesterol in LDL [Mass/Vol] 26 mg/dL Normal [facility] Comment on above: Result Comment: Bord nwngct=681-944 mg/dL Higher Wooj=371 mg/dL or greater Performed By: #### L 500.2500 #### [facility] [address] [place], [address] Cholesterol in VLDL [Mass/Vol] 14 mg/dL Normal 5-40 [facility] Comment on above: Performed By: #### L 500.2500 #### [facility] [address] [place], [address] Triglyceride [Mass/Vol] 69 mg/dL Normal [facility] Comment on above: Result Comment: The drugs N-Acetylcysteine and Metamizole may falsely depress this assay. Normal range: <150 mg/dL Borderline High: 150-199 mg/dL High: 200-499 mg/dL Very High: >500 mg/dL Performed By: #### L 500.2500 #### [facility] [address] [place], [address] MCV (mean corpuscular volume ) determinationOrdered By: Radha Heller on 01-08-2025 MCV (RBC) [Entitic vol] 89.3 fL 81-99 [facility] Magnesiumon 01-08-2025 Magnesium [Mass/Vol] 2.4 mg/dL High 1.5-2.2 [facility] Comment on above: Performed By: #### L 499.0042 #### [facility] Laboratory [facility] [address] [place], [place], [id number] Magnesium measurement (mass/ volume)Ordered By: Radha Heller on 01-08-2025 Magnesium (Unsp spec) [Mass/Vol] 2.4 mg/dL High 1.5-2.2 [facility] Mean corpuscular hemoglobin (MCH) determinationOrdered By: Radha Heller on 01-08-2025 MCH (RBC) [Entitic mass] 28.3 pg 27.0-32.0 [facility] Mean corpuscular hemoglobin concentration (MCHC) determinationOrdered By: Radha Heller on 01-08-2025 MCHC (RBC) [Mass/Vol] 31.7 g/dL Low 32-36 [facility] Mean platelet volume determi nationOrdered By: Radha Heller on 01-08-2025 Platelet mean volume (Bld) [Entitic vol] 9.6 fL 6.2-12.0 [facility] Monocyte percentageOrdered B y: Radha Heller on 01-08-2025 Monocytes/100 WBC (Bld) 15.5 % High 0-10 [facility] Neutrophil percentageOrdered By: Radha Heller on 01-08-2025 Neutrophils/100 WBC (Bld) 47.3 % 47-70 [facility] Nucleated red blood cell per centageOrdered By: Radha Heller on 01-08-2025 Nucleated RBC/100 WBC (Bld) [Ratio] 0 % 0-5 [facility] Platelet countOrdered By: Fernando Heller on 01-08-2025 Platelets (Bld) [#/Vol] 155 10*3/uL 150-450 [facility] Platelet estimateOrdered By: Radha Heller on 01-08-2025 Platelets LM Ql (Bld) ADEQUATE ADEQ [facility] RBC Auto (Bld) [#/Vol]Ordere d By: Radha Heller on 01-08-2025 RBC (Bld) [#/Vol] 3.18 10*6/uL Low 4.2-5.4 [facility] Screening total cholesterol/ high density lipoprotein (HDL) cholesterol ratioOrdered By: Radha Heller on 01-08-2025 Cholesterol.total/Gin sterol in HDL [Mass ratio] 2.38 {ratio} [facility] Serum or plasma cholesterol in HDL measurement (mass/volume)Ordered By: Radha Heller on 01-08-2025 Cholesterol in HDL [Mass/Vol] 29 mg/dL Low >40 [facility] Comment on above: National Cholesterol Education Program (NCEP) guidelines:<40 mg/dL: Low HDL-cholesterol (major risk factor for CHD)>= 60 mg/dL: High HDL-cholesterol (negative risk factor for CHD)HDL-cholesterol is affected by a number of factors, e.g. smoking, exercise, hormones, sex and age. Serum or plasma cholesterol measurement (mass/volume)Ordered By: Radha Heller on 01-08-2025 Cholesterol [Mass/Vol] 68 mg/dL <201 [facility] Comment on above: Cholesterol level, D esirable <200 mg/dLBorderline high cholesterol 200-239 mg/dLHigh cholesterol >=240 mg/dLRecommendations of the NCEP Adult Treatment Panel for the following risk-cutoff thresholds for the [place] population. TSH DL <= 0.005 mIU/L QnOrde red By: Radha Heller on 01-08-2025 TSH Qn 4.850 uIU/mL High 0.300-4.200 [facility] Thyroid Stim Hormone (TSH)on 01-08-2025 TSH 4.850 uIU/mL High 0.300-4.200 [facility] Comment on above: Performed By: #### L 499.0042 #### [facility] Laboratory [facility] [place], [address] Triglycerides measurementOrd ered By: Radha Heller on 01-08-2025 Triglyceride [Mass/Vol] 69 mg/dL <199 [facility] Comment on above: The drugs N-Acetylcy steine and Metamizole may falsely depress this assay. Normal range: <150 mg/dLBorderline High: 150-199 mg/dLHigh: 200-499 mg/dLVery High: >500 mg/dL White blood cell (WBC) count Ordered By: Radha Heller on 01-08-2025 WBC (Bld) [#/Vol] 6.3 10*3/uL 4.4-11.0 [facility] 12 Lead EKGon 01-07-2025 12 Lead EKG [facility] Cardiovascular Services [address] [place] [address] 12 Lead EKG 01/07/25 1257 MR#: [id number] Acct: [id number] Name: BERTA SANCHES Rep #: [id number] : 1945 79 From: Yaniv Masters MD Attending Dr: Dr. Dianne Stovall DO Status: A DM IN Ordering Dr: Sheree Simmons Date: 01/07/25 Location: [facility] Sex: F C Admitted: 01/07/25 Test Reason : SOB Blood Pressure : */* mmHG Vent. Rate : 77 BPM Atrial Rate : * BPM P-R Int : * ms QRS Dur : 114 ms QT Int : 440 ms P-R-T Axes : * -63 -53 degrees QTcB Int : 497 ms Atrial fibrillation with occasional ventricular-paced complexes Pulmonary disease pattern Left anterior fascicular block Minimal voltage criteria for LVH, may be normal variant ( [place] product ) Nonspecific ST and T wave abnormality QTcB >= 480 msec Abnormal ECG Confirmed by YANIV MASTERS MD ([id number]), photo editor ROJELIO TADEO ([id number]) on 01/08/2025 11:01:47 AM Referred By: Confirmed By: YANIV MASTERS MD 01/08/25 1101 Date Yaniv Masters MD CC: BACK TENDER CYLINDER-Ivett Collazo; Dr. Dianne Stovall DO; FERNANDO Uriostegui Signed Normal [facility] Absolute lymphocyte countOrd ered By: ED PROVIDER on 01-07-2025 Lymphocytes Auto (Unsp spec) [#/Vol] 1.52 10*3/uL 0.83-4.51 [facility] Absolute neutrophil countOrd ered By: ED PROVIDER on 01-07-2025 Neutrophils (Bld) [#/Vol] 3.8 10*3/uL 2.0-7.7 [facility] Anion gap in Serum or Plasma Ordered By: ED PROVIDER on 01-07-2025 Anion gap [Moles/Vol] 15 mmol/L 5-15 [facility] Automated lymphocyte count a s percentage of total leukocytesOrdered By: ED PROVIDER on 01-07-2025 Lymphocytes/100 WBC Auto (Unsp spec) 24.2 % 19-41 [facility] BUN/creatinine ratioOrdered By: ED PROVIDER on 01-07-2025 Urea nitrogen/Creatinine [Mass ratio] 26.4 mg/mg High 10-20 [facility] Basic Metabolic Profile (BMP )on 01-07-2025 BUN/CRE 26.4 RATIO High - [facility] Comment on above: Performed By: #### L 500.2500 #### [facility] Laboratory [address] [place], [address] ECRCL 24.26 ml/min Low 50-250 [facility] Comment on above: Performed By: #### L 500.2500 #### [facility] Laboratory [address] [place], [address] GAP 15 Normal - [facility] Comment on above: Performed By: #### L 500.2500 #### [facility] Laboratory [address] [place], [address] Potassium [Moles/Vol] 4.2 mmol/L Normal 3.3-5.1 [facility] Comment on above: Performed By: #### L 500.2500 #### [facility] Laboratory [address] [place], [address] Basophil percentageOrdered B y: ED PROVIDER on 01-07-2025 Basophils/100 WBC (Bld) 1.0 % 0-1 [facility] Bedside Glucoseon 01-07-2025 FINGERSTICK GLU 166 mg/dL High 74-106 [facility] Comment on above: Result Comment: JOHNSON GEMENT OF PATIENT CARE PER NURSING PROTOCOL Performed By: #### L 501.080 #### [facility] Laboratory [address] [place], [address] FINGERSTICK GLU 104 mg/dL Normal 74-106 [facility] Comment on above: Result Comment: JOHNSON GEMENT OF PATIENT CARE PER NURSING PROTOCOL Performed By: #### L 501.080 #### [facility] Laboratory [address] [place], [address] CBC W/Diff, AutomatedOrdered By: ED PROVIDER on 01-07-2025 Anisocytosis Ql (Bld) 1+ Normal [facility] Comment on above: Performed By: #### L 500.2500 #### [facility] Laboratory [address] [place], [address] Carbon dioxide, total [Moles /volume] in Central venous bloodOrdered By: ED PROVIDER on 01-07-2025 CO2 [Moles/Vol] 23.9 mmol/L Normal 21.0-32.0 [facility] Comment on above: Performed By: #### L 500.2500 #### [facility] Laboratory [address] [place], [address] Chest PA and Lateralon 01-07 Chest PA and Lateral [facility] Imaging Services [address] [place] [address] Chest PA and Lateral MR#: [id number] Acct: [id number] Name: BERTA SANCHES SCOTTIE Rep #: [id number] : 1945 F 79 From: Clark Trinidad MD PCP: JARROD Cantu Status: REG ER Study: Chest PA and Lateral Date of Exam: 01/07/25 Exam# [id number] Ordering Dr: Sheree Simmons PROCEDURE: CHEST PA AND LATERAL 01/07/2025 REASON FOR EXAM: DYSPNEA TECHNIQUE: CHEST PA AND LATERAL COMPARISON: Portable chest, 02/13/2021. FINDINGS: There is cardiomegaly, pulmonary venous hypertension and pulmonary interstitial edema consistent with congestive heart failure. There are no pleural effusions. There is calcific vascular disease of the thoracic aorta. There is a dual lead pacemaker. The upper abdominal bowel gas pattern is normal. There are no bony abnormalities of the chest. RAD/Chest PA and Lateral IMPRESSION: Findings consistent with mild congestive heart failure. Reading Location: [id number] CC: JARROD Collazo; FERNANDO Uriostegui Supervisory Forester: Signed Normal [facility] Chloride assayOrdered By: ED PROVIDER on 01-07-2025 Chloride [Moles/Vol] 91 mmol/L Low 98-108 [facility] Comment on above: Performed By: #### L 500.2500 #### [facility] Laboratory [address] [place], [address] Echo Completeon 01-07-2025 Echo Complete [facility] Cardiovascular Services [address] [place] [address] Echo Complete 01/08/25 1058 MR#: [id number] Acct: [id number] Name: BERTA SANCHES Rep #: [id number] : 1945 79 From: Yaniv Masters MD Attending Dr: Dr. Dianne Stovall, DO Status: A DM IN Ordering Dr: Radha Heller MD Date: 01/07/25 Location: U Sex: F C Admitted: 01/07/25 Reason For Study Reason For Study: CHF Procedure This was a 2D Doppler, Color Flow transthoracic echocardiogram. Exam performed portable in patient room. Left Ventricle Normal LV size. D shaped septum in diastole. Moderate concentric left ventricular hypertrophy. The left ventricular ejection fraction is 50 %. Stage 3 diastolic dysfunction. No regional wall motion abnormalities noted. Right Ventricle Moderately dilated right ventricle. ICD or pacer leads identified within the right ventricle. Mild to moderate global right ventricular systolic dysfunction. Atria The left atrium is severely enlarged. The right atrium is moderately enlarged. Mitral Valve Bileaflet diffuse mitral valve thickening. Peak transmitral valve gradient 15 mmHg. Mean transmitral valve gradient 5 mmHg. Moderate (2+) posteriorly directed mitral valve insufficiency. Tricuspid Valve Normal tricuspid valve. Moderate (2+) tricuspid valve insufficiency. Aortic Valve Peak aortic valve gradient 20 mmHg. Mean aortic valve gradient 11 mmHg. Mild (1+) aortic valve insufficiency. Bioprosthetic aortic valve. Pulmonic Valve Normal pulmonic valve. Mild-Moderate (1-2+) pulmonic valve insufficiency. MMode/2D Measurements Calculations LVIDd: 4.5 cm IVSd: 1.5 cm LVOT diam: 2.0 cm LVIDs: 3.0 cm LVPWd: 1.4 cm LVOT area: 3.2 cm2 RVDd: 5.4 cm FS: 32.3 % LAV(MOD-bp): 96.5 ml RVOT diam: 2.7 cm MVA(traced): 3.2 cm2 LAV(MOD-bp) Indexed: 56.2 ml/m2 LAV(MOD-sp2): 80.9 ml LAV(MOD-sp4): 117.8 ml LVAd ap4: 33.0 cm2 SV(MOD-sp4): 58.3 ml SV(sp4-el): 59.0 ml LVLd ap4: 8.2 cm SI(MOD-sp4): 34.0 ml/m2 EDV(MOD-sp4): 111.5 ml EDV(sp4-el): 112.8 ml LVAs ap4: 21.5 cm2 LVLs ap4: 7.3 cm ESV(MOD-sp4): 53.2 ml ESV(sp4-el): 53.8 ml EF(MOD-sp4): 52.3 % EF(sp4-el): 52.3 % LA dimension(2D): 5.3 cm LA A4 area: 30.5 cm2 RA A4 area: 28.8 cm2 Time Measurements MV dec time: 0.34 sec Doppler Measurements Calculations MV E max aysha: 185.2 cm/sec MV V2 max: 192.2 cm/sec MV A max aysha: 64.5 cm/sec MV max P.8 mmHg MV dec slope: 545.2 cm/sec2 MV E/A: 2.9 MV V2 mean: 99.5 cm/sec MV mean P.0 mmHg MV V2 VTI: 43.8 cm MVA(VTI): 1.5 cm2 Ao V2 max: 225.8 cm/sec AI max aysha: 453.8 cm/sec LV V1 max: 109.2 cm/sec Ao max P.5 mmHg AI max P.6 mmHg LV V1 max P.8 mmHg Ao V2 mean: 154.1 cm/sec AI dec slope: 448.8 cm/sec2 LV V1 mean P.3 mmHg Ao mean P.5 mmHg AI P1/2t: 296.1 msec LV V1 mean: 71.5 cm/sec Ao V2 VTI: 41.2 cm LV V1 VTI: 20.6 cm AV (velocity ratio): 0.50 LISBETH(I,D): 1.6 cm2 LISBETH(V,D): 1.5 cm2 MR max aysha: 623.4 cm/sec SV(LVOT): 65.5 ml PA V2 max: 96.6 cm/sec MR max P.4 mmHg PA V2 mean: 67.7 cm/sec MR mean aysha: 451.3 cm/sec PA mean PG (full): 1.5 mmHg MR mean P.6 mmHg MR VTI: 200.6 cm PI end-d aysha: 151.6 cm/sec SV(RVOT): 66.7 ml TR max aysha: 374.9 cm/sec TR max P.2 mmHg Qp/Qs: 1.0/1.0 ECHO/Echo Complete Interpretation Summary Normal LV size. The left ventricular ejection fraction is 50 %. Stage 3 diastolic dysfunction. Mean transmitral valve gradient 5 mmHg. Moderate mitral stenosis Heart rate at the time of examination was 79 bpm ICD or pacer leads identified within the right ventricle. D shaped septum in diastole. Moderate concentric left ventricular hypertrophy. Bioprosthetic aortic valve. Mean aortic valve gradient 11 mmHg. Ordering Physician: Radha Heller Performed By: Edy Victor RCS 01/08/25 1302 Date Yaniv Masters MD CC: JARROD Collazo; Dr. Dianne Stovall DO; Dr. Radha Turner (more content not included)... Normal [facility] Emergency Department Summary on 01-07-2025 Emergency Department Summary [facility] Medical Records Department [address] [place] [address] Emergency Department Summary 01/07/25 MR#: [id number] Acct: [id number] Name: BERTA SANCHES SCOTTIE Rep #: [id number] : 1945 79 From: Sheree KING PCP: JARROD Cantu Status:ADM IN Location: [address] History of Present Illness Chief Complaint: Shortness of Breath Narrative Narrative: 79-year-old female with PMH of HTN, HLD, DM2, aortic valve replacement, pacemaker, A-fib no longer on blood thinners status post Watchman device, peripheral arterial disease, thoracic aortic aneurysm, congestive heart failure presents with several weeks of persistent shortness of breath and bilateral lower extremity edema. She gives background that in September 2023 she had surgery in [place] for some type of intra-abdominal artery blockage and was started on Plavix in addition to her baseline aspirin 81 mg. She states she was also having issues with her congestive heart failure. She came home at the end of October and has been taking her normal Lasix 40 mg twice daily and spironolactone 12.5 mg twice daily without improvement. She saw her [facility] flosser Dr. Burdick on January 01. He changed it to Lasix 80 mg in the morning and 40 mg for 5 days which she finished yesterday and went back to 40 mg this morning but she states she has had no improvement. She is mildly short of breath at rest but especially with walking around. She having difficulty getting from the kitchen to the bathroom. Her legs feel so tight and swollen she is having difficulty bending over to change her close. She has no chest pain. No fever or chills. She has had some phlegm which she thinks is from allergies but no significant cough. [facility] Medical History (Updated 01/07/25 @ 17:[address] Luis Armando Harry MD) Skin tear of left forearm without complication [...] (upper respiratory infection) Bronchospasm with bronchitis, acute Home Medications ???Medication ???Instructions ???Recorded ???Last Taken ???Type furosemide 20 mg tablet 40 mg PO DAILY diuretic 11/15/17 0 03/24/19 History metoprolol succinate 25 mg 50 mg PO DAILY daily 02/13/21 Unkn own History tablet,extended release 24 hr aspirin 81 mg capsule 81 mg PO DAILY 01/07/25 Unknown Hi story atorvastatin 40 mg tablet 40 mg PO DAILY daily 01/07/25 Unkn own History clopidogrel 75 mg tablet 75 mg PO DAILY 01/07/25 Unknown Hi story ferrous sulfate 325 mg (65 mg 325 mg PO DAILY 01/07/25 Unknown H istory iron) tablet (Feosol) metolazone 2.5 mg tablet 2.5 mg PO DAILY PRN edema 01/07/25 Unknown History pantoprazole 40 mg tablet,delayed 40 mg PO BID daily 01/07/25 Unkno wn History release potassium chloride 10 mEq 10 meq PO DAILY daily 01/07/25 Unk nown History tablet,extended release psyllium 3.4 gram/5.8 gram oral 3.4 g PO BID daily 01/07/25 Unknow n History powder spironolactone 25 mg tablet 12.5 mg PO BID daily 01/07/25 Unkn own History Allergy/AdvReac Type Severity Reaction Status Date / Time propofol AdvReac Mild Low blood Verified 01/07/25 12:47 pressure Family History Father Heart disease High cholesterol Mother Heart disease Surgical History history skin cancer surgery history bilateral ear surgeries History of hysterectomy H/O aortic valve replacement Social History Smoking Status: Never smoker alcohol intake: current alcohol intake frequency: a few times a month substance use type: does not use ROS ROS ED ROS Narrative Constitutional: Negative for fever, chills, malaise. CVS: Negative for palpitations, chest pain. Respiratory: Positive for shortness of breath, orthopnea. GI: Negative for abdominal pain, nausea, vomiting. EXAM Physical Exam Narrative Exam Narrative: CONST: Patient sitting in no acute distress. EYES: Normal inspection. NECK: Normal inspection. RESP: No respiratory distress, very diminished throughout. CVS: Irregularly irregular rhythm, no murmur, no gallop. ABD: Soft and nontender, no guarding or rebound, nondistended. SKIN: Color normal, no rash, warm, dry, intact. EXTREMITIES: Extremities are tight with pitting edema from the proximal thighs down. No erythema or warmth. Brisk cap refill. NEURO: Alert and answering qu (more content not included)... Normal [facility] Eosinophil percentageOrdered By: ED PROVIDER on 01-07-2025 Eosinophils/100 WBC (Bld) 1.8 % 0-5 [facility] Erythrocyte distribution wid th ratioOrdered By: ED PROVIDER on 01-07-2025 Erythrocyte distribution width (RBC) [Ratio] 19.9 % High 11.6-14.6 [facility] Erythrocyte distribution wid th standard deviationOrdered By: ED PROVIDER on 01-07-2025 Erythrocyte distribution width (RBC) [Ratio] 65.6 fl High 35.1-43.9 [facility] Glomerular filtration rate ( GFR) estimation/1.73 sq m using serum, plasma, or whole bOrdered By: ED PROVIDER on 01-07-2025 GFR/1.73 sq M.predicted among non-blacks MDRD (S/P/Bld) [Vol rate/Area] 29 mL/min/{1.73_m2} Low >60 [facility] Comment on above: mL/min/1.73m2 CKD-EP I Creatinine Equation (2020) Result Comment: mL/m in/1.73m2 CKD-EPI Creatinine Equation (2020) Performed By: #### L 500.2500 #### [facility] Laboratory [address] [place], [address] H AND P Exam - Hospitaliston 01-07-2025 H&P Exam - Hospitalist [facility] Medical Records Department [address] [place] [address] H P Exam - Hospitalist 01/07/25 1629 MR#: [id number] Acct: [id number] Name: BERTA SANCHES SCOTTIE Rep #: [id number] : 1945 79 From: Radha Heller MD PCP: JARROD Cantu Status:REG ER Location: ED HPI - General General Date of Admission: 01/07/25 Date of Service: 01/07/25 Chief Complaint: Increased shortness of breath and swelling HPI Narrative BERTA SANCHES, is a 79-year-old female history of hypertension, diabetes, pacemaker, AV replacement, A-fib status post Watchman device, congestive heart failure presented [facility] ED 01/07/2025 with several weeks of shortness of breath and bilateral lower extremity edema. Reportedly in September 2023 she had surgery in [place] for some kind of intra-abdominal artery blockage and was placed on Plavix and aspirin and was having difficulties with her heart failure at that time. She came home at the end of October and has been taking her Lasix 40 twice daily and spironolactone 12.5 mg twice daily without improvement. She recently followed with her [facility] flosser with increase in her Lasix by mouth but has not had improvement. Patient is having somewhat shortness of breath on exertion that she is having difficulty with her ADLs and notes her legs feel so tight and swollen that she has difficulty bending over to change her close/completing ADLs. In the ED temperature 97.7, heart rate 78 with blood pressure 135/57, respiratory rate 16 and pulse ox 100% on room air. BMP revealed sodium of 129 with last value of 132 in 2020, BUN 47 creatinine of 1.77, last creatinine in our system in 2020 was 1.65. CBC with hemoglobin of 9.4 and pro BNP 10,409. First troponin of 71 with repeat of 68 and chest x-ray with evidence of fluid overload. Hospitalist contacted for admission for heart failure exacerbation. Pt evaluated at bedside. She reports history as above with increasing shortness of breath and lower extremity swelling over the past couple weeks to the point that she is having difficulty with her ADLs now, increased Lasix on an outpatient basis did not improve, has a little bit of a chronic cough from drainage but denies any fevers, no chest pain, no bowel or bladder changes. ROS otherwise negative [facility] Medical History Anxiety Brain aneurysm Bronchospasm with bronchitis, acute Cardiac arrhythmia Chest pain, musculoskeletal CHF exacerbation Diabetes Diabetes mellitus type 2 in obese Family history of brain aneurysm Fever Heart disease History of cancer HLD (hyperlipidemia) HTN (hypertension) Laceration of right middle finger Obesity (BMI 30.0-34.9) PAD (peripheral artery disease) PAF (paroxysmal atrial fibrillation) Skin cancer Skin tear of left forearm without complication URI (upper respiratory infection) Home Medications ???Medication ???Instructions ???Recorded ???Last Taken ???Type rivaroxaban 20 mg tablet 15 mg PO DAILY blood thinner 07/1303/23/19 History simvastatin 40 mg tablet 20 mg PO QHS cholesterol 07/13/15 03/23/19 History furosemide 20 mg tablet 20 mg PO DAILY diuretic 11/15/17 0 03/24/19 History lisinopril 40 mg tablet 20 mg PO DAILY blood pressure 0507/2203/24/19 History amlodipine 10 mg tablet 5 mg PO BID 03/24/19 03/24/19 Hist ory coenzyme Q10 100 mg capsule 100 mg PO DAILY 03/24/19 03/23/19 History magnesium oxide 200 mg PO DAILY 02/13/21 Unknown H istory metoprolol succinate 25 mg 25 mg PO DAILY 02/13/21 Unknown Hi story tablet,extended release 24 hr cephalexin 500 mg capsule 500 mg PO TID #15 caps 02/28/24 Un known Rx aspirin 81 mg capsule 81 mg PO DAILY 01/07/25 Unknown Hi story clopidogrel 75 mg tablet 75 mg PO DAILY 01/07/25 Unknown Hi story ferrous sulfate 325 mg (65 mg 325 mg PO DAILY 01/07/25 Unknown H istory iron) tablet (Feosol) Allergy/AdvReac Type Severity Reaction Status Date / Time propofol AdvReac Mild Low blood Verified 01/07/25 12:47 pressure Family History Father Heart disease High cholesterol Mother Heart disease Surgical History H/O aortic valve replacement history bilateral ear surgeries History of hysterectomy history skin cancer surgery Social History Smoking Status: Never smoker alcohol intake: current alcohol intake frequency: a few times a month substance use type: does not use ROS ROS Narrative General: Denies fever/chills HENT: Denies headache, denies stuffy nose, denies sore throat EYES: Denies changes in vision Resp: Gets a little bit of cough with drainage, increased shortness of breath Cardiac: De (more content not included)... Normal [facility] Hematocrit Auto (Bld) [Volum e fraction]Ordered By: ED PROVIDER on 01-07-2025 Hematocrit (Bld) [Volume fraction] 29.6 % Low 37-47 [facility] Hemoglobin measurementOrdere d By: ED PROVIDER on 01-07-2025 Hemoglobin (Bld) [Mass/Vol] 9.4 g/dL Low 12.0-15.0 [facility] Immature granulocytes/100 WB C Auto (Bld)Ordered By: ED PROVIDER on 01-07-2025 Immature granulocytes/100 WBC (Bld) 0.300 % 0.0-0.9 [facility] Comment on above: IG% - Immature Granu locytes (promyelocytes, myelocytes and metamyelocytes) > 1% indicates that a LEFT SHIFT is Present. L499.0042on 01-07-2025 Trop T High Sen 68 ng/L Invalid Interpretation Code <=14 [facility] Comment on above: Result Comment: Crit ical Result(s) Called at: 01/07/2025-15:45 by: Tai Garcia to Jen Carrera.??Results read back by same. Performed By: #### L 499.0042 #### [facility] Laboratory [address] [place], [address] L501.4021on 01-07-2025 Trop T High Sen 71 ng/L Invalid Interpretation Code <=14 [facility] Comment on above: Result Comment: Crit ical Result(s) Called at: 01/07/2025-13:48 by: Danika Blanchard.??Results read back by same. Performed By: #### L 500.2500 #### [facility] Laboratory [address] [place], [address] L503.7505on 01-07-2025 Natriuretic peptide B (Bld) [Mass/Vol] 26945 pg/mL High <=1800 [facility] Comment on above: Result Comment: Hear t Failure Unlikely: < 300 pg/mL Heart Failure Likely < 50 Years: > 450 pg/mL 50-75 Years: > 900 pg/mL >75 Years: > 1800 pg/mL Performed By: #### L 500.2500 #### [facility] Laboratory [address] [place], [address] MCV (mean corpuscular volume ) determinationOrdered By: ED PROVIDER on 01-07-2025 MCV (RBC) [Entitic vol] 90.0 fL 81-99 [facility] Mean corpuscular hemoglobin (MCH) determinationOrdered By: ED PROVIDER on 01-07-2025 MCH (RBC) [Entitic mass] 28.6 pg 27.0-32.0 [facility] Mean corpuscular hemoglobin concentration (MCHC) determinationOrdered By: ED PROVIDER on 01-07-2025 MCHC (RBC) [Mass/Vol] 31.8 g/dL Low 32-36 [facility] Mean platelet volume determi nationOrdered By: ED PROVIDER on 01-07-2025 Platelet mean volume (Bld) [Entitic vol] 9.6 fL 6.2-12.0 [facility] Monocyte percentageOrdered B y: ED PROVIDER on 01-07-2025 Monocytes/100 WBC (Bld) 12.9 % High 0-10 [facility] Natriuretic peptide.B prohor daria N-Terminal [Mass/volume] in Serum or PlasmaOrdered By: Sheree Simmons on 01-07-2025 Natriuretic peptide.B prohormone N-Terminal [Mass/Vol] 92181 pg/mL High <1800 [facility] Comment on above: Heart Failure Unlike ly: < 300 pg/mLHeart Failure Likely< 50 Years: > 450 pg/mL50-75 Years: > 900 pg/mL>75 Years: > 1800 pg/mL Neutrophil percentageOrdered By: ED PROVIDER on 01-07-2025 Neutrophils/100 WBC (Bld) 59.8 % 47-70 [facility] Nucleated red blood cell per centageOrdered By: ED PROVIDER on 01-07-2025 Nucleated RBC/100 WBC (Bld) [Ratio] 0 % 0-5 [facility] Platelet countOrdered By: ED PROVIDER on 01-07-2025 Platelets (Bld) [#/Vol] 165 10*3/uL 150-450 [facility] Potassium measurement (mass/ volume)Ordered By: ED PROVIDER on 01-07-2025 Potassium (Unsp spec) [Mass/Vol] 4.2 mmol/L 3.3-5.1 [facility] RBC Auto (Bld) [#/Vol]Ordere d By: ED PROVIDER on 01-07-2025 RBC (Bld) [#/Vol] 3.29 10*6/uL Low 4.2-5.4 [facility] STROKE Brain/Head without Co nton 01-07-2025 STROKE Brain/Head without Cont [facility] Imaging Services [address] [place], [place] [id number] STROKE Brain/Head without Cont MR#: [id number] Acct: [id number] Name: BERTA SANCHES Rep #: [id number] : 1945 F 79 From: Jonathan Paul DO PCP: JARROD Cantu Status: ADM IN Study: STROKE Brain/Head without Cont Date of Exam: 0 01/07/25 Exam# [id number] Ordering Dr: Carla Ha DO PROCEDURE: STROKE BRAIN/HEAD WITHOUT CONT 01/07/2025 REASON FOR EXAM: STROKE ALERT TECHNIQUE: STROKE BRAIN/HEAD WITHOUT CONT Coronal and Sagittal reconstruction series were provided. One or more dose reduction techniques were used (e.g., Automated exposure control, adjustment of the mA and/or kV according to patient size, use of iterative reconstruction technique. RADIATION DOSE SUMMARY: CTDlvol: 44.99, 22.92 in 15.89 mGy DLP: 1818.71 mGycm FINDINGS: Brain: No acute intra-axial hemorrhage. No extra-axial hemorrhage. No mass, mass effect or midline shift. Periventricular and deep white matter hypodensities suggest chronic small-vessel ischemic change. And age-related process. CSF Spaces: Mild prominent ventricles and sulci suggest involutional change. Sinuses/Mastoids: Predominantly clear. Bones: No aggressive bony process. CT/STROKE Brain/Head without Cont IMPRESSION: No intra-axial or extra-axial hemorrhage. No acute process. Age-related changes of involution and chronic small-vessel ischemic disease Navigator to call report. 11:17 p.m. Reading [facility] CC: JARROD Collazo; Dr. Carla Ha DO Supervisory Forester: Signed Normal [facility] STROKE CTA Head AND Neck W/C onon 01-07-2025 STROKE CTA Head AND Neck W/Con [facility] Imaging Services [address] [place] [id number] STROKE CTA Head AND Neck W/Con MR#: [id number] Acct: [id number] Name: VERÓNICATAMERA MARTINSRA RUBIN Rep #: [id number] : 1945 F 79 From: Jonathan Paul DO PCP: JARROD Cantu Status: ADM IN Study: STROKE CTA Head AND Neck W/Con Date of Exam: 0 01/07/25 Exam# [id number] Ordering Dr: Carla Ha DO PROCEDURE: STROKE CTA HEAD AND NECK W/CON 01/07/2025 REASON FOR EXAM: STROKE ALERT, L FACIAL DROOP, L LEG ATAXIA TECHNIQUE: STROKE CTA HEAD AND NECK W/CON Multiplanar Sagittal and Coronal images were obtained. CONTRAST: Isovue 370 VOLUME: 100 mL One or more dose reduction techniques were used (e.g., Automated exposure control, adjustment of the mA and/or kV according to patient size, use of iterative reconstruction technique). RADIATION DOSE SUMMARY: CTDlvol: 44.99 mGy DLP: 880.47 mGycm COMPARISON: No previous CTA FINDINGS: Aortic Arch: Unremarkable Brachiocephalic and Subclavians: Occasional non flow-limiting calcific plaque RIGHT Carotid: Right CCA: Minimal limited volume of bifurcation plaque. No flow limiting stenosis. Right ICA: No flow-limiting stenosis. Maximum stenosis (NASCET): <50% % Right ECA: <70% proximal ECA plaque LEFT Carotid: Left CCA: < 50% stenosis resulting from calcific bulb plaque Left ICA: Patent Maximum stenosis (NASCET): <50% Left ECA: Proximal plaque. No flow-limiting stenosis. Vertebrals: Codominant. RIGHT Vertebral: Patent unremarkable. LEFT Vertebral: Patent. Unremarkable. Anatomy: Standard Aneurysm or avm: No acute aneurysm. Evidence of previous aneurysm clip. Anterior cerebral arteries: Clip location possibly anterior communicating Middle cerebral arteries: Patent Basilar artery: Normal course and caliber. Posterior cerebral arteries: Patent bilaterally. Other major branches of the posterior circulation: Patent Major venous structures: Patent Other findings: Neck: NEGATIVE lungs: Limited images are negative. Bones: Unremarkable. CT/STROKE CTA Head AND Neck W/Con IMPRESSION: BILATERAL CALCIFIC PLAQUE, PRIMARILY AT THE BIFURCATION BILATERALLY LESS THAN 50% STENOSIS. OCCASIONALLY OTHER PLAQUES ARE SEEN BUT NON FLOW LIMITING. NO LARGE VESSEL OCCLUSION. Requested contact with the referring physician at 11:55 p.m. verbal report to charge nurse Melida at 12:05 a.m. Reading [facility] CC: JARROD Collazo; Dr. Carla de Shamir, DO Supervisory Forester: Signed Normal [facility] Serum creatinine measurement (mass/volume)Ordered By: ED PROVIDER on 01-07-2025 Creatinine [Mass/Vol] 1.77 mg/dL High 0.70-1.20 [facility] Comment on above: Performed By: #### L 500.2500 #### [facility] [address] [place], [address] Serum glucose measurement (m ass/volume)Ordered By: ED PROVIDER on 01-07-2025 Glucose [Mass/Vol] 194 mg/dL High 70-99 [facility] Comment on above: Performed By: #### L 500.2500 #### [facility] [address] [place], [address] Serum or plasma calcium bijan urement (mass/volume)Ordered By: ED PROVIDER on 01-07-2025 Calcium [Mass/Vol] 8.8 mg/dL Normal 7.6-11.0 [facility] Comment on above: Performed By: #### L 500.2500 #### [facility] [address] [place], [address] Serum or plasma urea nitroge n measurement (mass/volume)Ordered By: ED PROVIDER on 01-07-2025 Urea nitrogen [Mass/Vol] 47 mg/dL High 4-19 [facility] Comment on above: Performed By: #### L 500.2500 #### [facility] [address] [place], [address] Sodium levelOrdered By: ED Yue AUSTIN on 01-07-2025 Sodium [Moles/Vol] 129 mmol/L Low 133-145 [facility] Comment on above: Performed By: #### L 500.2500 #### [facility] [address] [place], [address] Troponin T.cardiac [Mass/vol ume] in Serum or Plasma by High sensitivity methodOrdered By: Sheree Simmons on 01-07-2025 Troponin T.cardiac High sensitivity method [Mass/Vol] 68 ng/L High <14 [facility] Comment on above: Critical Result(s) C alled at: 01/07/2025-15:45 by: Tai Garcia to Jen Carrera. Results read back by same. Troponin T.cardiac High sensitivity method [Mass/Vol] 71 ng/L High <14 [facility] Comment on above: Critical Result(s) C alled at: 01/07/2025-13:48 by: Danika Blanchard. Results read back by same. White blood cell (WBC) count Ordered By: ED PROVIDER on 01-07-2025 WBC (Bld) [#/Vol] 6.3 10*3/uL 4.4-11.0 [facility] CNOVon 01-01-2025 CNOV Office Visit (JOHNNY ) BERTA SANCHES ([id number]) 1945 F [facility] Date Time Provider Department 01/01/25 11:00 AM CARLA BURDICK During your visit today, we recorded the following information about you: Pulse Respiration Blood pressure Weight 84/minute 18/minute 156/60 67.4 kg Height 1.575 m Carla Burdick MD 01/01/2025 12:27 PM Signed [facility] SE[facility] REGIONAL CARDIOLOGY Cardiology ([facility]) [address] [facility] [id number] OUTPATIENT VISIT DATE 01/01/2025 PRIMARY CARE PHYSICIAN: Doreen Le [address] [place] [address] HISTORY OF PRESENT ILLNESS: Ms. Sanches is a 79 year old woman with a history of remote aortic valve replacement with homograft in 1996 and possible repair of the ascending aorta, chronic diastolic congestive heart failure, hypertension, dyslipidemia, atrial fibrillation with history of pulmonary vein isolation procedures, pacemaker placement and watchman procedure who presents for follow-up. Patient was admitted to [facility]. She was discharged after 2 days. [...] regurgitation Pacemaker 10/21/[address] SELAM BARTLETT [id number] pulse generator, his bundle lead, right atrial lead Peripheral arterial disease Rheumatic fever Steatosis, liver 03/26/2014 fatty liver on US. 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 Lua PACEMAKER 10/2019 PART. HYSTERECTOMY W/WO RMVL OVARIES/TUBES 1974 h/o cervical cancer ovaries remain PAST SURGICAL HISTORY OF 1996 Aortic valve repair, Dr. Apodaca PAST SURGICAL HISTORY OF 2001 [address] Beltrán, [facility] PAST SURGICAL HISTORY OF 2016 clipping and [...] and 1 (more content not included)... Normal [facility] 12-26-2024 [facility] Telephone ([facility]) BERTA SANCHES ([id number]) 1945 F [facility] Date Time Provider Department 12/26/24 ALBIN GU [facility] During your visit today, we recorded the following information about you: Albin Gu APRN.[facility] 12/26/2024 9:45 AM Signed Patient called to [...] questions answered at this time. Albin Gu APRN.MANAGER REGULATORY Allergies As of Date: 12/26/2024 Noted Allergy [...] anemia [D50.9] more content not included)... Normal [facility] 12-20-2024 [facility] Office Visit ([facility] ) BERTA SANCHES ([id number]) 1945 F [facility] Date Time Provider Department 12/20/24 8:45 AM LARS SILVA During your visit today, we recorded the following information about you: Pulse Blood pressure Weight 77/minute 154/75 67.4 kg Lars Silva, 12/20/2024 5:56 PM Signed [facility] [place] DEPARTMENT OF VASCULAR SURGERY OUTPATIENT VISIT DATE December 20, 2024 OUTPATIENT VISIT TYPE ESTABLISHED SERVICE DATE: 12/20/2024 SERVICE TIME: 8:53 AM PRIMARY CARE PHYSICIAN: Deysi Collazo APRN.CNP HISTORY OF PRESENT ILLNESS: Ms. Sanches is a 79 year old female who presents today for a vascular surgery follow-up visit follow up on mesenteric duplex. She recently increased her lasix at the CHF clinic. She had a stent placed in [place] in September. She was recently admitted to [facility] for anemia. She has noted increased swelling. [...] regurgitation Pacemaker 10/21/[address] SELAM BARTLETT [id number] pulse generator, his bundle lead, right atrial lead Peripheral arterial disease Rheumatic fever Steatosis, liver 03/26/2014 fatty liver on US. 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 Lua PACEMAKER 10/2019 PART. HYSTERECTOMY W/WO RMVL OVARIES/TUBES 1974 h/o cervical cancer ovaries remain PAST SURGICAL HISTORY OF 1996 Aortic valve repair, Dr. Apodaca PAST SURGICAL HISTORY OF 2001 [address] Beltrán, [facility] PAST SURGICAL HISTORY OF 2015 clipping and [...] blood sugar (more content not included)... Normal [facility] MESENTERIC ARTERY CMPLT V LABon 12-20-2024 US MESENTERIC ARTERY CMPLT VAS LAB Non-Invasive Vascular Laboratory [facility] Renal or Mesenteric Duplex [...] Unable to visualize. Technologist: Chantell Ferrari RVT, [facility] Ordering physician: LARS SILVA Interpreting physician: Terrance Oseguera MD, BIJAN Final Commissioner Medical Image : [id number] ISUID See Link below for Image Normal [facility] CNOVon 12-19-2024 CN Office Visit ([facility] ) BERTA SANCHES ([id number]) 1945 [facility] Date Time Provider Department 12/19/24 11:00 AM ALBIN GU [facility] During your visit today, we recorded the following information about you: Pulse Blood pressure Weight 79/minute 157/54 65.3 kg Albin Gu APRN.MANAGER REGULATORY 12/19/2024 11:41 AM Addendum 40 mg intravenous [...] or concern, you can call me at [phone]. Albin Gu APRN.CNP 12/19/2024 11:45 AM Signed [facility] [place] [facility] OUTPATIENT VISIT DATE December 18, 2024 OUTPATIENT VISIT TYPE ESTABLISHED PRIMARY CARE PHYSICIAN: Deysi Collazo APRN.CNP CHIEF COMPLAINT: No chief complaint on [...] and was worried about traveling home to [place] in a few days. Discussed with her taking lasix as it was prescribed. As her spironolactone was stopped, did advise patient restart this at 25 mg once a day for four days only. She was instructed to call office in a week to review symptoms. On 10/15, patient presented back to [facility] for gastrointestinal bleed. She had a [...] and entresto. The patient wished to leave [facility] so she could return to [place]. Cardiology and Pulmonary agreed with discharge. Patient [...] Hospital disch (more content not included)... Normal [facility] 12-13-2024 [facility] Telephone ([facility]) BERTA SANCHES ([id number]) 1945 F [place] Date Time Provider Department 12/13/24 DEYSI COLLAZO During your visit today, we recorded the following information about you: Jose [employer] Program DirectorAlex ya 12/13/2024 9:36 AM Signed Transitional Care Management (TCM) [facility] Monitoring Program Provider Action / FYI: N/A SUMMARY: Outreach type: INITIAL OUTREACH Discharge Network Status: In-Network Discharge Source of Patient: [facility] TCM Discharge Report Patient discharged from [facility] on December 12. Admitted for Acute on chronic diastolic CHF (congestive heart failure) (HCC). Contact made with patient: No - next outreach attempt will be on next . Alex Garcia December 13, 2024 9:35 AM Allergies As [...] [C64.9] 04 (more content not included)... Normal [facility] Basic metabolic 2000 panelon 12-12-2024 Anion gap [Moles/Vol] 12 mmol/L Normal 8-15 [facility] Comment on above: Order Comment: Annie ricci Type: BLOOD SPECIMEN Ordering Facility: [facility] Address: [address] [place] [address] Performed By: #### 1 9123-9, 63432-1 #### [facility] CLIA [id number] [address] [place] [address] [place] [facility] Calcium [Mass/Vol] 8.8 mg/dL Normal 8.5-10.2 [facility] Comment on above: Order Comment: Annie ricci Type: BLOOD SPECIMEN Ordering Facility: [facility] Address: [address] [place] [address] Performed By: #### 1 9123-9, 23273-4 #### [facility] CLIA [id number] [address] [place] [address] [place] Chloride [Moles/Vol] 96 mmol/L Low 98-107 [facility] Comment on above: Order Comment: Annie ricci Type: BLOOD SPECIMEN Ordering Facility: [facility] Address: [address] [place] [address] Performed By: #### 1 9123-9, 53764-4 #### [facility] CLIA [id number] [address] [place] [address] [place] CO2 [Moles/Vol] 26 mmol/L Normal 22-30 [facility] Comment on above: Order Comment: Annie ricci Type: BLOOD SPECIMEN Ordering Facility: [facility] Address: [address] [place] [address] Performed By: #### 1 9123-9, 59933-8 #### [facility] CLIA [id number] [address] Creatinine [Mass/Vol] 1.69 mg/dL High 0.58-0.96 [facility] Comment on above: Order Comment: Annie ricci Type: BLOOD SPECIMEN Ordering Facility: [facility] Address: [address] [place] [address] Performed By: #### 1 9123-9, 67824-0 #### [facility] CLIA [id number] [address] Creatinine and Glomerular filtration rate.predicted panel (S/P/Bld) 31 mL/min/1.73m??? Low >=60 [facility] Comment on above: Order Comment: Kunali keiry Type: BLOOD SPECIMEN Ordering Facility: [facility] Address: [address] [place] [address] Result Comment: Mira mated Glomerular Filtration Rate [...] actual GFR. Performed By: #### 1 9123-9, 70785-8 #### [facility] CLIA [id number] [address] [place] [address] [place] Glucose [Mass/Vol] 170 mg/dL High 74-99 [facility] Comment on above: Order Comment: Annie ricci Type: BLOOD SPECIMEN Ordering Facility: [facility] Address: [address] [place] [address] Result Comment: The [place] Diabetes Association (ADA) provides guidance for cutoff [...] Standards of Medical Care in Diabetes 2016, [place] Diabetes Association. Diabetes Care. 2016.39(Suppl 1). Performed By: #### 1 9123-9, 17854-6 #### [facility] CLIA [id number] [address] [place] [address] [place] Potassium [Moles/Vol] 4.1 mmol/L Normal 3.7-5.1 [facility] Comment on above: Order Comment: Annie ricci Type: BLOOD SPECIMEN Ordering Facility: [facility] Address: [address] [place] [address] Performed By: #### 1 9123-9, 46440-9 #### [facility] CLIA [id number] [address] [place] [address] [place] Sodium [Moles/Vol] 134 mmol/L Low 136-144 [facility] Comment on above: Order Comment: Annie ricci Type: BLOOD SPECIMEN Ordering Facility: [facility] Address: [address] [place] [address] Performed By: #### 1 91239, 10118-9 #### [facility] CLIA [id number] [address] STATES OF [place] Urea nitrogen [Mass/Vol] 47 mg/dL High 7-21 [facility] Comment on above: Order Comment: Speci men Type: BLOOD SPECIMEN Ordering Facility: [facility] Address: [address] [place] [address] Performed By: #### 1 9123-9, 62984-2 #### [facility] CLIA [id number] [address] [place] [address] [place] CBC panel Auto (Bld)on 12-12 Erythrocyte distribution width (RBC) [Ratio] 15.9 % High 11.5-15.0 [facility] Comment on above: Order Comment: Speci men Type: BLOOD SPECIMEN Ordering Facility: [facility] Address: [address] [place] [address] Performed By: #### 5 8410-2 #### [facility] CLIA [id number] [address] OF [place] Hematocrit (Bld) [Volume fraction] 25.0 % Low 36.0-46.0 [facility] Comment on above: Order Comment: Speci men Type: BLOOD SPECIMEN Ordering Facility: [facility] Address: [address] [place] [address] Performed By: #### 5 8410-2 #### [facility] CLIA [id number] [address] STATES OF [facility] Hemoglobin (Bld) [Mass/Vol] 8.0 g/dL Low 11.5-15.5 [facility] Comment on above: Order Comment: Speci men Type: BLOOD SPECIMEN Ordering Facility: [facility] Address: [address] [place] [address] Performed By: #### 5 8410-2 #### [facility] CLIA [id number] [address] OF [place] MCH (RBC) [Entitic mass] 28.6 pg Normal 26.0-34.0 [facility] Comment on above: Order Comment: Speci men Type: BLOOD SPECIMEN Ordering Facility: [facility] Address: [address] [place] [address] Performed By: #### 5 8410-2 #### [facility] CLIA [id number] [address] MCHC (RBC) [Mass/Vol] 32.0 g/dL Normal 30.5-36.0 [facility] Comment on above: Order Comment: Speci men Type: BLOOD SPECIMEN Ordering Facility: [facility] Address: [address] [place] [address] Performed By: #### 5 8410-2 #### [facility] CLIA [id number] [address] [place] MCV (RBC) [Entitic vol] 89.3 fL Normal 80.0-100.0 [facility] Comment on above: Order Comment: Speci men Type: BLOOD SPECIMEN Ordering Facility: [facility] Address: [address] [place] [address] Performed By: #### 5 8410-2 #### [facility] CLIA [id number] [address] Nucleated RBC (Bld) [#/Vol] 10*3/uL Normal <0.01 [facility] Comment on above: Order Comment: Speci men Type: BLOOD SPECIMEN Ordering Facility: [facility] Address: [address] [place] [address] Performed By: #### 5 8410-2 #### [facility] CLIA [id number] [address] Platelet mean volume (Bld) [Entitic vol] 9.9 fL Normal 9.0-12.7 [facility] Comment on above: Order Comment: Speci men Type: BLOOD SPECIMEN Ordering Facility: [facility] Address: [address] [place] [address] Performed By: #### 5 8410-2 #### [facility] CLIA [id number] [address] Platelets (Bld) [#/Vol] 148 10*3/uL Low 150-400 [facility] Comment on above: Order Comment: Speci men Type: BLOOD SPECIMEN Ordering Facility: [facility] Address: [address] [place] [address] [place] [address] Performed By: #### 5 8410-2 #### [facility] CLIA [id number] [address] OF [place] RBC (Bld) [#/Vol] 2.80 10*6/uL Low 3.90-5.20 [facility] Comment on above: Order Comment: Speci men Type: BLOOD SPECIMEN Ordering Facility: [facility] Address: [address] [place] [address] Performed By: #### 5 8410-2 #### [facility] CLIA [id number] [address] [place] WBC (Bld) [#/Vol] 9.29 10*3/uL Normal 3.70-11.00 [facility] Comment on above: Order Comment: Speci men Type: BLOOD SPECIMEN Ordering Facility: [facility] Address: [address] [place] [address] Performed By: #### 5 8410-2 #### [facility] CLIA [id number] [address] CNDSon 12-12-2024 CNDS HNO ID: [id number] Author: JUAN DIEGO KNOWLES MD Service: Hospital Medicine Author Type: Physician [...] TEAM: My Main Hospital Doctor: Juan Diego Knowles MD Primary Care Provider: Deysi Collazo APRN.MANAGER REGULATORY My Medical Team Members: Treatment Team: Attending Provider: Juan Diego Knowles MD Consulting: Betsy Hall MD Consulting: Hemant Jimenez MD Consulting: Lars Silva, DO MY CONDITION AT DISCHARGE: Stable REASON I WAS IN THE HOSPITAL: Fluid overload that improved with diuretics. You also have anemia related to taking long chain quiller tender blood thinners and you got better with iron. 1. Take a higher dose of torsemide and follow up with a flosser and our CHF clinic to guide your [...] Surgery placed. 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 Patient presenting with [...] Cards, CHF clinic, Nephrology, GI, vascular surgery HECK MEDICATION CHANGES: see med list LABS AND PROCEDURES PENDING AT DISCHARGE: No pending results. FOLLOW-UP APPOINTMENTS ALREADY SCHEDULED WITH A [facility] PROVIDER: Future Appointments Date Time Provider Department Center 12/21/2024 9:00 AM Albin Gu, TERI.MANAGER REGULATORY [facility] 01/01/2025 11:00 AM Carla Burdick MD CARDWS [place] 01/10/2025 1:00 PM Deysi Collazo APRN.JASPREET [facility] 02/26/2025 2:20 PM Carla Burdick MD CARDWS [...] how you (more content not included)... Normal [facility] CONSULT PROGon 12-12-2024 CONSULT PROG HNO ID: [id number] Author: BETSY HALL MD Service: Nephrology Author [...] urine creatinine (more content not included)... Normal [facility] Magnesium SerPl-ncon 12-12 Magnesium [Mass/Vol] 2.0 mg/dL Normal 1.7-2.3 [facility] Comment on above: Order Comment: Specbecca ricci Type: BLOOD SPECIMEN Ordering Facility: [facility] Address: [address] [place] [address] Performed By: #### 1 9123-9, 56970-0 #### [facility] CLIA [id number] [address] [place] [address] [place] ALBUMIN/CREATININE RATIO, UR INEon 12-11-2024 Albumin DL <= 20 mg/L (U) [Mass/Vol] 23.5 mg/L Normal [facility] Comment on above: Order Comment: Annie ricci Type: BLOOD SPECIMEN Ordering Facility: [facility] Address: [address] [place] [address] Performed By: #### 2 132-9, 2284-8 #### [facility] CLIA [id number] [address] [place] Albumin/Creatinine (U) [Mass ratio] 76 mg/g High <30 [facility] Comment on above: Order Comment: Annie ricci Type: BLOOD SPECIMEN Ordering Facility: [facility] Address: [address] [place] [address] Result Comment: Adul t Male and Female Nephrotic Criteria: <30 mg/g is considered normal to mildly increased 30-300 mg/g is considered moderately increased >300 mg/g is considered severely increased KDIGO. (2013). KDIGO 2012 Clinical Practice Guideline for the Evaluation and Management of Chronic Kidney Disease. Official Journal of the International Society of Nephrology, 3(1), 1-150. Performed By: #### 2 132-9, 2284-8 #### [facility] CLIA [id number] [address] [place] [address] [place] ALLIED HEALTHon 12-11-2024 ALLIED HEALTH HNO ID: [id number] Author: NUNU CHATMAN RDMS Service: ? Author [...] PATIENT PRESENTS WITH AN IMPLANTABLE OR ATTACHED TIP CUTTER: N/A RADIOLOGY DEPARTMENT: Ultrasound PERIPHERAL IV DATA: Not applicable SIGNED BY: Nunu Chatman RDMS December 11, 2024 9:14 AM Normal [facility] Basic metabolic 2000 panelon 12-11-2024 Anion gap [Moles/Vol] 13 mmol/L Normal 8-15 [facility] Comment on above: Order Comment: Annie ricci Type: BLOOD SPECIMEN Ordering Facility: [facility] Address: [address] [place] [address] Performed By: #### 2 276-4, 02959-4, 83828-5, 37428-5 #### [facility] CLIA [id number] [address] [place] Calcium [Mass/Vol] 8.9 mg/dL Normal 8.5-10.2 [facility] Comment on above: Order Comment: Annie ricci Type: BLOOD SPECIMEN Ordering Facility: [facility] Address: [address] [place] [address] Performed By: #### 2 276-4, 46156-9, 74044-6, 07885-7 #### [facility] CLIA [id number] [address] [place] [address] [place] Chloride [Moles/Vol] 93 mmol/L Low 98-107 [facility] Comment on above: Order Comment: Speci men Type: BLOOD SPECIMEN Ordering Facility: [facility] Address: [address] [place] [address] Performed By: #### 2 276-4, 59884-5, 84489-1, 82204-6 #### [facility] CLIA [id number] [address] [place] [address] [place] CO2 [Moles/Vol] 24 mmol/L Normal 22-30 [facility] Comment on above: Order Comment: Speci men Type: BLOOD SPECIMEN Ordering Facility: [facility] Address: [address] [place] [address] Performed By: #### 2 276-4, 37793-2, 51502-0, 94385-9 #### [facility] CLIA [id number] [address] [place] [address] [place] Creatinine [Mass/Vol] 1.70 mg/dL High 0.58-0.96 [facility] Comment on above: Order Comment: Speci men Type: BLOOD SPECIMEN Ordering Facility: [facility] Address: [address] [place] [address] Performed By: #### 2 276-4, 31525-6, 80548-8, 12271-4 #### [facility] CLIA [id number] [address] [place] Creatinine and Glomerular filtration rate.predicted panel (S/P/Bld) 30 mL/min/1.73m??? Low >=60 [facility] Comment on above: Order Comment: Speci men Type: BLOOD SPECIMEN Ordering Facility: [facility] Address: [address] [place] [address] Result Comment: Mira mated Glomerular Filtration Rate [...] actual GFR. Performed By: #### 2 276-4, 72209-6, 61223-7, #### [facility] CLIA [id number] [address] [place] [address] [place] Glucose [Mass/Vol] 144 mg/dL High 74-99 [facility] Comment on above: Order Comment: Annie ricci Type: BLOOD SPECIMEN Ordering Facility: [facility] Address: [address] [place], [place] [id number] Result Comment: The [place] Diabetes Association (ADA) provides guidance for cutoff [...] Standards of Medical Care in Diabetes 2016, [place] [employer]. Diabetes Care. 2016.39(Suppl 1). Performed By: #### 2 276-4, 44676-8, 18327-2, #### [facility] CLIA [id number] [address] [place] [address] [place] Potassium [Moles/Vol] 3.6 mmol/L Low 3.7-5.1 [facility] Comment on above: Order Comment: Annie ricci Type: BLOOD SPECIMEN Ordering Facility: [facility] Address: [address] [place] [address] Performed By: #### 2 276-4, 09768-0, 19232-9, 96020-5 #### [facility] CLIA [id number] [address] [place] [address] [place] Sodium [Moles/Vol] 130 mmol/L Low 136-144 [facility] Comment on above: Order Comment: Speci men Type: BLOOD SPECIMEN Ordering Facility: [facility] Address: [address] [place] [address] Performed By: #### 2 276-4, 89329-3, 06230-5, 81362-0 #### [facility] CLIA [id number] [address] [place] [address] [place] Urea nitrogen [Mass/Vol] 54 mg/dL High 7-21 [facility] Comment on above: Order Comment: Speci men Type: BLOOD SPECIMEN Ordering Facility: [facility] Address: [address] [place] [address] Performed By: #### 2 276-4, 44519-3, 03164-5, 16186-2 #### [facility] CLIA [id number] [address] [place] [address] [place] CBC panel Auto (Bld)on 12-11 Erythrocyte distribution width (RBC) [Ratio] 16.1 % High 11.5-15.0 [facility] Comment on above: Order Comment: Speci men Type: BLOOD SPECIMEN Ordering Facility: [facility] Address: [address] [place] [address] Performed By: #### 2 132-9, 8 #### [facility] CLIA [id number] [address] [place] Hematocrit (Bld) [Volume fraction] 23.8 % Low 36.0-46.0 [facility] Comment on above: Order Comment: Speci men Type: BLOOD SPECIMEN Ordering Facility: [facility] Address: [address] [place] [address] Performed By: #### 2 132-9, 2283-8 #### [facility] CLIA [id number] [address] [place] [address] [place] Hemoglobin (Bld) [Mass/Vol] 7.6 g/dL Low 11.5-15.5 [facility] Comment on above: Order Comment: Speci men Type: BLOOD SPECIMEN Ordering Facility: [facility] Address: [address] [place] [address] Performed By: #### 2 132-9, 2284-8 #### [facility] CLIA [id number] [address] MCH (RBC) [Entitic mass] 28.4 pg Normal 26.0-34.0 [facility] Comment on above: Order Comment: Speci men Type: BLOOD SPECIMEN Ordering Facility: [facility] Address: [address] [place] [address] Performed By: #### 2 132-9, 8 #### [facility] CLIA [id number] [address] [place] MCHC (RBC) [Mass/Vol] 31.9 g/dL Normal 30.5-36.0 [facility] Comment on above: Order Comment: Speci men Type: BLOOD SPECIMEN Ordering Facility: [facility] Address: [address] [place] [address] Performed By: #### 2 132-9, 8 #### [facility] CLIA [id number] [address] MCV (RBC) [Entitic vol] 88.8 fL Normal 80.0-100.0 [facility] Comment on above: Order Comment: Speci men Type: BLOOD SPECIMEN Ordering Facility: [facility] Address: [address] [place] [address] Performed By: #### 2 132-9, 8 #### [facility] CLIA [id number] [address] Nucleated RBC (Bld) [#/Vol] 10*3/uL Normal <0.01 [facility] Comment on above: Order Comment: Speci men Type: BLOOD SPECIMEN Ordering Facility: [facility] Address: [address] [place] [address] Performed By: #### 2 132-9, 8 #### [facility] CLIA [id number] [address] Platelet mean volume (Bld) [Entitic vol] 9.8 fL Normal 9.0-12.7 [facility] Comment on above: Order Comment: Speci men Type: BLOOD SPECIMEN Ordering Facility: [facility] Address: [address] [place] [address] Performed By: #### 2 132-9, 2283-8 #### [facility] CLIA [id number] [address] Platelets (Bld) [#/Vol] 160 10*3/uL Normal 150-400 [facility] Comment on above: Order Comment: Speci men Type: BLOOD SPECIMEN Ordering Facility: [facility] Address: [address] [place] [address] Performed By: #### 2 132-9, 2283-8 #### [facility] CLIA [id number] [address] RBC (Bld) [#/Vol] 2.68 10*6/uL Low 3.90-5.20 [facility] Comment on above: Order Comment: Speci men Type: BLOOD SPECIMEN Ordering Facility: [facility] Address: [address] [place] [address] Performed By: #### 2 132-9, 2283-8 #### [facility] CLIA [id number] [address] WBC (Bld) [#/Vol] 7.37 10*3/uL Normal 3.70-11.00 [facility] Comment on above: Order Comment: Speci men Type: BLOOD SPECIMEN Ordering Facility: [facility] Address: [address] [place] [address] Performed By: #### 2 132-9, 2283-8 #### [facility] CLIA [id number] [address] OF [facility] CNPShantelle 12-11-2024 CNPN Telephone (4CQ) BERTA SANCHES ([id number]) 1945 F [place] Date Time Provider Department 12/11/24 DEYSI COLLAZO 4CQ During your visit today, we recorded the following information about you: Marilyn Cesar 12/11/2024 11:06 AM Signed Patient called to cancel hospital follow up due to re admission yesterday 12/10/2024 Sigifredo Rivera LPN 12/11/2024 11:15 AM Signed Pt re admitted to [facility]. GOPI Hill Christy, APRN.CNP 12/11/2024 1:06 PM Signed Noted. 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 Normal [facility] CONSULTon 12-11-2024 CONSULT HNO ID: [id number] Author: HEMANT JIMENEZ MD Service: Gastroenterology Author Type: Physician Type: Consults Filed: 12/11/2024 15:46 Note Text: GASTROENTEROLOGY CONSULT NOTE PATIENT NAME: Berta Sanches SERVICE DATE: December 11, 2024 SERVICE TIME: 11:59 AM PRIMARY CARE PHYSICIAN: Deysi Collazo APRN.MANAGER REGULATORY ATTENDING PHYSICIAN:Juan Diego Knowles MD REASON FOR ADMISSION: CHF REASON FOR CONSULTATION:BUSHRA HPI: This is a 79 year old female with a past medical history significant for cervical cancer, brain aneurysm, s/p coiling, bilateral carotid stenosis, afib s/p watchman 2022, D-CHF, SSS S/P pacemaker placement, Hx AVR, CKD3, HTN, DM, GERD, diverticulitis, hx of 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 Lua PACEMAKER 10/2019 PART. HYSTERECTOMY W/WO RMVL OVARIES/TUBES 1973 h/o cervical cancer ovaries remain PAST SURGICAL HISTORY OF 1996 Aortic valve repair, Dr. Apodaca PAST SURGICAL HISTORY OF 2001 [address] Beltrán, [facility] PAST SURGICAL HISTORY OF 2016 clipping and [...] , 12/09/2024 t (more content not included)... [facility] CONSULT PROGon 12-11-2024 CONSULT PROG HNO ID: [id number] Author: BETSY HALL MD Service: Nephrology Author [...] twice daily -- Previous record from [place] reviewed in detail. -- Kidney ultrasound from 10/04/2024 reviewed. Significantly increased velocity in proximal left renal artery suggestive of left renal artery stenosis -- Repeat kidney ultrasound and renal artery duplex Normal [facility] Creat ?Tm Ur-ncon 12-12-19 25 Creatinine (U) [Mass/Vol] 31.1 mg/dL Normal 20.0-300.0 [facility] Comment on above: Order Comment: Annie ricci Type: BLOOD SPECIMEN Ordering Facility: [facility] Address: [address] [place] [address] Performed By: #### 2 132-9, 2284-8 #### [facility] CLIA [id number] [address] [place], [place] [id number] [place] Ferritin SerPl-ncon 2024 Ferritin [Mass/Vol] 36.2 ng/mL Normal 14.7-205.1 [facility] Comment on above: Order Comment: Annie ricci Type: BLOOD SPECIMEN Ordering Facility: [facility] Address: [address] [place] [address] Performed By: #### 2 276-4, 90529-2, 30756-7, 22912-9 #### [facility] CLIA [id number] [address] [place] [address] [place] Folate SerPl-mCncon 12-12-19 Folate [Mass/Vol] 11.3 ng/mL Normal >4.7 [facility] Comment on above: Order Comment: Speci men Type: BLOOD SPECIMEN Ordering Facility: [facility] Address: [address] [place] [address] Performed By: #### 2 132-9, 2283-8 #### [facility] CLIA [id number] [address] [place] [address] [place] Iron and Iron binding capaci ty panelon 12-11-2024 Iron [Mass/Vol] 17 ug/dL Low 41-186 [facility] Comment on above: Order Comment: Speci men Type: BLOOD SPECIMEN Ordering Facility: [facility] Address: [address] [place] [address] Performed By: #### 2 132-9, 8 #### [facility] CLIA [id number] [address] [place] [address] [place] Iron binding capacity [Mass/Vol] 416 ug/dL High 232-386 [facility] Comment on above: Order Comment: Speci men Type: BLOOD SPECIMEN Ordering Facility: [facility] Address: [address] [place] [address] Performed By: #### 2 132-9, 8 #### [facility] CLIA [id number] [address] [place] [address] [place] Iron/TIBC [Molar ratio] 4.1 % Low 15.0-57.0 M [facility] Comment on above: Order Comment: Speci men Type: BLOOD SPECIMEN Ordering Facility: [facility] Address: [address] [place] [address] Performed By: #### 2 132-9, 2283-8 #### [facility] CLIA [id number] [address] [place] [address] [place] Magnesium SerPl-mCncon 12-11 Magnesium [Mass/Vol] 1.8 mg/dL Normal 1.7-2.3 [facility] Comment on above: Order Comment: Speci men Type: BLOOD SPECIMEN Ordering Facility: [facility] Address: [facility] [place] [id number] Performed By: #### 2 276-4, 31359-2, 64047-1, 41131-2 #### [facility] CLIA [id number] [address] [place] [address] [facility] NURSING PROGon 12-11-2024 NURSING PROG HNO ID: [id number] Author: BRIANNA BETANCOURT RN Service: Nursing Author Type: Registered Nurse Type: Nursing Progress Note Filed: 12/11/2024 15:17 Note Text: PATIENT EDUCATION HEART FAILURE PATIENT NAME: Berta Sanches PATIENT LOCATION: [place] [address] SURVIVAL SKILLS: Low Sodium Diet Weight Monitoring [...] Cardiology Electronically Signed By: Brianna Betancourt Normal [facility] OCCULT BLD EXAM-DIAGon 12-11 OCCULT BLD EXAM-DIAG Positive Abnormal [facility] Comment on above: Performed By: #### 1 9123-9, 76963-1 #### [facility] CLIA [id number] [address] [place] [address] [place] Prot/Creat Uron 12-11-2024 Protein/Creatinine (U) [Mass ratio] 0.26 mg/mg High <0.15 [facility] Comment on above: Order Comment: Annie ricci Type: BLOOD SPECIMEN Ordering Facility: [facility] Address: [address] [place] [address] Result Comment: Adul t Proteinuria Categories: <0.15 mg/mg is considered normal to mildly increased 0.15 - 0.50 mg/mg is considered moderately increased >0.50 mg/mg is considered severely increased KDIGO. (2013). KDIGO 2012 Clinical Practice Guideline for the Evaluation and Management of Chronic Kidney Disease. Official Journal of the International Society of Nephrology, 3(1), 1-150. Performed By: #### 2 132-9, 2284-8 #### [facility] CLIA [id number] [address] [place] [address] [place] Protein/Creatinine (U) [Mass ratio]on 12-11-2024 Protein (U) [Mass/Vol] 8 mg/dL Normal 0-20 [facility] Comment on above: Order Comment: Annie ricci Type: BLOOD SPECIMEN Ordering Facility: [facility] Address: [address] [place] [address] Performed By: #### 2 132-9, 2284-8 #### [facility] CLIA [id number] [address] [place] [address] [place] Sodium ?Tm Ur-sCncon 025 Sodium Unsp time (U) [Moles/Vol] 67 mmol/L Normal 14-216 [facility] Comment on above: Order Comment: Speci men Type: BLOOD SPECIMEN Ordering Facility: [facility] Address: [address] [place] [address] Performed By: #### 2 132-9, 2284-8 #### [facility] CLIA [id number] [address] OF [place] UREA NITROGEN, RANDOM URINEo n 12-11-2024 UREA NITROGEN,UR,RAN 400 mg/dL Normal 140-1500 [facility] Comment on above: Order Comment: Speci men Type: BLOOD SPECIMEN Ordering Facility: [facility] Address: [address] [place] [address] Performed By: #### 2 132-9, 2284-8 #### [facility] CLIA [id number] [address] OF [place] URINALYSIS, REFLEX MICROSCOP ICon 12-11-2024 Bilirubin Ql (U) Negative Normal Negative [facility] Comment on above: Order Comment: Speci men Type: URINE SPECIMEN Ordering Facility: [facility] Address: [address] [place] [address] Performed By: #### L [id number] #### [facility] CLIA [id number] [address] Clarity (Unsp spec) Clear Normal Clear [facility] Comment on above: Order Comment: Speci men Type: URINE SPECIMEN Ordering Facility: [facility] Address: [address] [place] [address] Performed By: #### L [id number] #### [facility] CLIA [id number] [address] Color (U) Yellow Normal Yellow [facility] Comment on above: Order Comment: Speci men Type: URINE SPECIMEN Ordering Facility: [facility] Address: [address] [place] [address] Performed By: #### L [id number] #### [facility] CLIA [id number] [address] [place] Glucose Test strip (U) [Mass/Vol] Negative Normal Negative [facility] Comment on above: Order Comment: Speci men Type: URINE SPECIMEN Ordering Facility: [facility] Address: [address] [place] [address] Performed By: #### L [id number] #### [facility] CLIA [id number] [address] Hemoglobin Ql (U) Negative Normal Negative [facility] Comment on above: Order Comment: Speci men Type: URINE SPECIMEN Ordering Facility: [facility] Address: [address] [place] [address] Performed By: #### L [id number] #### [facility] CLIA [id number] [address] [place] [address] [place] Ketones Ql (U) Negative Normal Negative [facility] Comment on above: Order Comment: Speci men Type: URINE SPECIMEN Ordering Facility: [facility] Address: [address] [place] [address] Performed By: #### L [id number] #### [facility] CLIA [id number] [address] Leukocyte esterase Test strip Ql (U) Negative Normal Negative [facility] Comment on above: Order Comment: Speci men Type: URINE SPECIMEN Ordering Facility: [facility] Address: [address] [place] [address] Performed By: #### L [id number] #### [facility] CLIA [id number] [address] Nitrite Ql (U) Negative Normal Negative [facility] Comment on above: Order Comment: Speci men Type: URINE SPECIMEN Ordering Facility: [facility] Address: [address] [place] [address] Performed By: #### L [id number] #### [facility] CLIA [id number] [address] [place] pH (U) 6.5 [pH] Normal 5.0-8.0 [facility] Comment on above: Order Comment: Speci men Type: URINE SPECIMEN Ordering Facility: [facility] Address: [address] [place] [address] Performed By: #### L [id number] #### [facility] CLIA [id number] [address] [place] Protein (U) [Mass/Vol] Negative Normal Negative [facility] Comment on above: Order Comment: Speci men Type: URINE SPECIMEN Ordering Facility: [facility] Address: [address] [place] [address] Performed By: #### L [id number] #### [facility] CLIA [id number] [address] OF [facility] Specific gravity (U) [Rel density] 1.010 Normal 1.005-1.030 [facility] Comment on above: Order Comment: Speci men Type: URINE SPECIMEN Ordering Facility: [facility] Address: [address] [place] [address] Performed By: #### L [id number] #### [facility] CLIA [id number] [address] Urobilinogen Ql (U) 0.2 EU/dL Normal 0.2-1.0 EU/dL [facility] Comment on above: Order Comment: Speci men Type: URINE SPECIMEN Ordering Facility: [facility] Address: [address] [place] [address] Performed By: #### L [id number] #### [facility] CLIA [id number] [address] [place] US RENAL ARTERY/VEINon [...] LEFT: 60-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 Supervisory Forester: JAMES Transcribe Date/Time: Dec 11 2024 11:31A Dictated by : ANNETTA ALLEN DO This examination was interpreted and the report reviewed and electronically signed by: ANNETTA ALLEN DO on Dec 11 2024 11:41AM EST [id number] Normal [facility] Vit B12 SerPl-ncon 025 Cobalamin (Vitamin B12) [Mass/Vol] 1393 pg/mL High 232-1245 [facility] Comment on above: Order Comment: Speci men Type: BLOOD SPECIMEN Ordering Facility: [facility] Address: [address] [place] [address] Performed By: #### 2 132-9, 2284-8 #### [facility] CLIA [id number] [address] [place], [place] [id number] [place] [address] OF [facility] ALLIED HEALTHon 12-10-2024 ALLIED HEALTH HNO ID: [id number] Author: SHONDA YI RT(R) Service: Radiology Author Type: Technologist Type: [...] PATIENT PRESENTS WITH AN IMPLANTABLE OR ATTACHED TIP CUTTER: No RADIOLOGY DEPARTMENT: General X-ray: Exam(s) Completed: Chest X-Ray PERIPHERAL IV DATA: Not applicable SIGNED BY: Shonda Yi RT(R) December 10, 2024 8:10 AM Normal [facility] CBC W Auto Differential pane l (Bld)on 12-10-2024 Basophils (Bld) [#/Vol] 0.09 10*3/uL Normal <0.11 [facility] Comment on above: Order Comment: Specbecca ricci Type: BLOOD SPECIMEN Ordering Facility: [facility] Address: [address] [place] [address] Performed By: #### 5 7021-8 #### [facility] CLIA [id number] [address] [place] [address] [place] Basophils/100 WBC (Bld) 1.1 % Normal [facility] Comment on above: Order Comment: Annie ricci Type: BLOOD SPECIMEN Ordering Facility: [facility] Address: [address] [place] [address] Performed By: #### 5 7021-8 #### [facility] CLIA [id number] [address] [place] [address] [place] Differential cell count method Nom (Bld) Auto Normal [facility] Comment on above: Order Comment: Annie ricci Type: BLOOD SPECIMEN Ordering Facility: [facility] Address: [address] [place] [address] Performed By: #### 5 7021-8 #### [facility] CLIA [id number] [address] [place] [address] [place] Eosinophils (Bld) [#/Vol] 0.21 10*3/uL Normal <0.46 [facility] Comment on above: Order Comment: Speci men Type: BLOOD SPECIMEN Ordering Facility: [facility] Address: [address] [place] [address] Performed By: #### 5 7021-8 #### [facility] CLIA [id number] [address] [place] Eosinophils/100 WBC (Bld) 2.6 % Normal [facility] Comment on above: Order Comment: Speci men Type: BLOOD SPECIMEN Ordering Facility: [facility] Address: [address] [place] [address] Performed By: #### 5 7021-8 #### [facility] CLIA [id number] [address] [place] Erythrocyte distribution width (RBC) [Ratio] 16.2 % High 11.5-15.0 [facility] Comment on above: Order Comment: Speci men Type: BLOOD SPECIMEN Ordering Facility: [facility] Address: [address] [place] [address] Performed By: #### 5 7021-8 #### [facility] CLIA [id number] [address] [place] Hematocrit (Bld) [Volume fraction] 26.5 % Low 36.0-46.0 [facility] Comment on above: Order Comment: Speci men Type: BLOOD SPECIMEN Ordering Facility: [facility] Address: [address] [place] [address] Performed By: #### 5 7021-8 #### [facility] CLIA [id number] [address] [place] Hemoglobin (Bld) [Mass/Vol] 8.2 g/dL Low 11.5-15.5 [facility] Comment on above: Order Comment: Speci men Type: BLOOD SPECIMEN Ordering Facility: [facility] Address: [address] [place] [address] Performed By: #### 5 7021-8 #### [facility] CLIA [id number] [address] OF [place] Immature granulocytes (Bld) [#/Vol] 0.03 10*3/uL Normal <0.10 [facility] Comment on above: Order Comment: Speci men Type: BLOOD SPECIMEN Ordering Facility: [facility] Address: [address] [place] [address] Performed By: #### 5 7021-8 #### [facility] CLIA [id number] [address] Immature granulocytes/100 WBC (Bld) 0.4 % Normal [facility] Comment on above: Order Comment: Speci men Type: BLOOD SPECIMEN Ordering Facility: [facility] Address: [address] [place] [address] Performed By: #### 5 7021-8 #### [facility] CLIA [id number] [address] Lymphocytes (Bld) [#/Vol] 2.52 10*3/uL Normal 1.00-4.00 [facility] Comment on above: Order Comment: Speci men Type: BLOOD SPECIMEN Ordering Facility: [facility] Address: [address] [place] [address] Performed By: #### 5 7021-8 #### [facility] CLIA [id number] [address] Lymphocytes/100 WBC (Bld) 30.7 % Normal [facility] Comment on above: Order Comment: Speci men Type: BLOOD SPECIMEN Ordering Facility: [facility] Address: [address] [place] [address] Performed By: #### 5 7021-8 #### [facility] CLIA [id number] [address] MCH (RBC) [Entitic mass] 28.5 pg Normal 26.0-34.0 [facility] Comment on above: Order Comment: Speci men Type: BLOOD SPECIMEN Ordering Facility: [facility] Address: [address] [place] [address] Performed By: #### 5 7021-8 #### [facility] CLIA [id number] [address] MCHC (RBC) [Mass/Vol] 30.9 g/dL Normal 30.5-36.0 [facility] Comment on above: Order Comment: Speci men Type: BLOOD SPECIMEN Ordering Facility: [facility] Address: [address] [place] [address] Performed By: #### 5 7021-8 #### [facility] CLIA [id number] [address] [place] [address] [place] MCV (RBC) [Entitic vol] 92.0 fL Normal 80.0-100.0 [facility] Comment on above: Order Comment: Speci men Type: BLOOD SPECIMEN Ordering Facility: [facility] Address: [address] [place] [address] Performed By: #### 5 7021-8 #### [facility] CLIA [id number] [address] [place] Monocytes (Bld) [#/Vol] 1.19 10*3/uL High <0.87 [facility] Comment on above: Order Comment: Speci men Type: BLOOD SPECIMEN Ordering Facility: [facility] Address: [address] [place] [address] Performed By: #### 5 7021-8 #### [facility] CLIA [id number] [address] OF [facility] Monocytes/100 WBC (Bld) 14.5 % Normal [facility] Comment on above: Order Comment: Speci men Type: BLOOD SPECIMEN Ordering Facility: [facility] Address: [address] [place] [address] Performed By: #### 5 7021-8 #### [facility] CLIA [id number] [address] [place] [address] [place] Neutrophils (Bld) [#/Vol] 4.17 10*3/uL Normal 1.45-7.50 [facility] Comment on above: Order Comment: Speci men Type: BLOOD SPECIMEN Ordering Facility: [facility] Address: [address] [place] [address] Performed By: #### 5 7021-8 #### [facility] CLIA [id number] [address] [place] [address] [place] Neutrophils/100 WBC (Bld) 50.7 % Normal [facility] Comment on above: Order Comment: Speci men Type: BLOOD SPECIMEN Ordering Facility: [facility] Address: [address] [place] [address] Performed By: #### 5 7021-8 #### [facility] CLIA [id number] [address] [place] Nucleated RBC (Bld) [#/Vol] 10*3/uL Normal <0.01 [facility] Comment on above: Order Comment: Speci men Type: BLOOD SPECIMEN Ordering Facility: [facility] Address: [address] [place] [address] Performed By: #### 5 7021-8 #### [facility] CLIA [id number] [address] OF [facility] Nucleated RBC/100 WBC (Bld) [Ratio] 0.0 /100 WBC Normal [facility] Comment on above: Order Comment: Speci men Type: BLOOD SPECIMEN Ordering Facility: [facility] Address: [address] [place] [address] Performed By: #### 5 7021-8 #### [facility] CLIA [id number] [address] [place] Platelet mean volume (Bld) [Entitic vol] 10.5 fL Normal 9.0-12.7 [facility] Comment on above: Order Comment: Speci men Type: BLOOD SPECIMEN Ordering Facility: [facility] Address: [address] [place] [address] Performed By: #### 5 7021-8 #### [facility] CLIA [id number] [address] [place] Platelets (Bld) [#/Vol] 168 10*3/uL Normal 150-400 [facility] Comment on above: Order Comment: Speci men Type: BLOOD SPECIMEN Ordering Facility: [facility] Address: [address] [place] [address] Performed By: #### 5 7021-8 #### [facility] CLIA [id number] [address] [place] [address] [place] RBC (Bld) [#/Vol] 2.88 10*6/uL Low 3.90-5.20 [facility] Comment on above: Order Comment: Speci men Type: BLOOD SPECIMEN Ordering Facility: [facility] Address: [address] [id number] Performed By: #### 5 7021-8 #### [facility] CLIA [id number] [address] [place], [place] [address] [place] [address] WBC (Bld) [#/Vol] 8.21 10*3/uL Normal 3.70-11.00 [facility] Comment on above: Order Comment: Annie men Type: BLOOD SPECIMEN Ordering Facility: [facility] Address: [address] [id number] Performed By: #### 5 7021-8 #### [facility] CLIA [id number] [address] CONSULTon 12-10-2024 CONSULT HNO ID: [id number] Author: BETSY HALL MD Service: Nephrology Author Type: Physician Type: Consults Filed: 12/10/2024 19:42 Note Text: INPATIENT INITIAL NEPHROLOGY CONSULT SERVICE DATE: 12/10/2024 SERVICE TIME: 7:30 PM REASON FOR CONSULT: MONIQUE/ CRS REQUESTING PHYSICIAN: Dr Tuttle PRIMARY CARE PHYSICIAN: Deysi Collazo APRN.MANAGER REGULATORY CC: SOB and edema Subjective Ms. Sanches [...] history recent MONIQUE secondary to ATN requiring FACTORY ENGINEER with subsequent renal recovery hemodialysis catheter was [...] regurgitation Pacemaker 10/21/[address] SELAM BARTLETT [id number] pulse generator, his bundle lead, right atrial lead Peripheral arterial disease Rheumatic fever Steatosis, liver 03/26/2014 fatty liver on US. 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 Lua PACEMAKER 10/2019 PART. HYSTERECTOMY W/WO RMVL OVARIES/TUBES 1974 h/o cervical cancer ovaries remain PAST SURGICAL HISTORY OF 1996 Aortic valve repair, Dr. Apodaca PAST SURGICAL HISTORY OF 2001 [address] Beltrán, [facility] PAST SURGICAL HISTORY OF 2015 clipping and [...] red win (more content not included)... Normal [facility] Comprehensive metabolic 2000 panelon 12-10-2024 Albumin [Mass/Vol] 3.8 g/dL Low 3.9-4.9 [facility] Comment on above: Order Comment: Speci men Type: URINE SPECIMEN Ordering Facility: [facility] Address: [address] [place] [address] Performed By: #### L [id number] #### [facility] CLIA [id number] [address] [place] [address] [place] ALP [Catalytic activity/Vol] 139 U/L High 34-123 [facility] Comment on above: Order Comment: Speci men Type: URINE SPECIMEN Ordering Facility: [facility] Address: [address] [place] [address] Performed By: #### L [id number] #### [facility] CLIA [id number] [address] [place] [address] [place] ALT [Catalytic activity/Vol] 12 U/L Normal 7-38 [facility] Comment on above: Order Comment: Speci men Type: URINE SPECIMEN Ordering Facility: [facility] Address: [address] [place] [address] Performed By: #### L [id number] #### [facility] CLIA [id number] [address] [place] [address] [place] Anion gap [Moles/Vol] 13 mmol/L Normal 8-15 [facility] Comment on above: Order Comment: Speci men Type: URINE SPECIMEN Ordering Facility: [facility] Address: [address] [place] [address] Performed By: #### L [id number] #### [facility] CLIA [id number] [address] [place] [address] [place] AST [Catalytic activity/Vol] 27 U/L Normal 13-35 [facility] Comment on above: Order Comment: Speci men Type: URINE SPECIMEN Ordering Facility: [facility] Address: [address] [place] [address] Performed By: #### L [id number] #### [facility] CLIA [id number] [address] [place] [address] [place] Bilirubin [Mass/Vol] 0.8 mg/dL Normal 0.2-1.3 [facility] Comment on above: Order Comment: Speci men Type: URINE SPECIMEN Ordering Facility: [facility] Address: [address] [place] [address] Performed By: #### L [id number] #### [facility] CLIA [id number] [address] [place] [address] [place] Calcium [Mass/Vol] 9.0 mg/dL Normal 8.5-10.2 [facility] Comment on above: Order Comment: Speci men Type: URINE SPECIMEN Ordering Facility: [facility] Address: [address] [place] [address] Performed By: #### L [id number] #### [facility] CLIA [id number] [address] [place] [address] [place] Chloride [Moles/Vol] 98 mmol/L Normal 98-107 [facility] Comment on above: Order Comment: Speci men Type: URINE SPECIMEN Ordering Facility: [facility] Address: [address] [place] [address] Performed By: #### L [id number] #### [facility] CLIA [id number] [address] [place] CO2 [Moles/Vol] 20 mmol/L Low 22-30 [facility] Comment on above: Order Comment: Speci men Type: URINE SPECIMEN Ordering Facility: [facility] Address: [address] [place] [address] Performed By: #### L [id number] #### [facility] CLIA [id number] [address] [place] Creatinine [Mass/Vol] 1.90 mg/dL High 0.58-0.96 [facility] Comment on above: Order Comment: Speci men Type: URINE SPECIMEN Ordering Facility: [facility] Address: [address] [place] [address] Performed By: #### L [id number] #### [facility] CLIA [id number] [address] Creatinine and Glomerular filtration rate.predicted panel (S/P/Bld) 27 mL/min/1.73m??? Low >=60 [facility] Comment on above: Order Comment: Speci men Type: URINE SPECIMEN Ordering Facility: [facility] Address: [address] [place] [address] Result Comment: Mira mated Glomerular Filtration Rate [...] reflect actual GFR. Performed By: #### L [id number] #### [facility] CLIA [id number] [address] Glucose [Mass/Vol] 140 mg/dL High 74-99 [facility] Comment on above: Order Comment: Speci men Type: URINE SPECIMEN Ordering Facility: [facility] Address: [address] [place] [address] Result Comment: The [place] Diabetes Association (ADA) provides guidance for cutoff [...] Standards of Medical Care in Diabetes 2016, [place] [employer]. Diabetes Care. 2016.39(Suppl 1). Performed By: #### L [id number] #### [facility] CLIA [id number] [address] [place] [address] [place] Potassium [Moles/Vol] 4.2 mmol/L Normal 3.7-5.1 [facility] Comment on above: Order Comment: Speci men Type: URINE SPECIMEN Ordering Facility: [facility] Address: [address] [place] [address] Performed By: #### L [id number] #### [facility] CLIA [id number] [address] [place] [address] [place] Protein [Mass/Vol] 7.3 g/dL Normal 6.3-8.0 [facility] Comment on above: Order Comment: Speci men Type: URINE SPECIMEN Ordering Facility: [facility] Address: [address] [place] [address] Performed By: #### L [id number] #### [facility] CLIA [id number] [address] [place] [address] [place] Sodium [Moles/Vol] 131 mmol/L Low 136-144 [facility] Comment on above: Order Comment: Speci men Type: URINE SPECIMEN Ordering Facility: [facility] Address: [address] [place] [address] Performed By: #### L [id number] #### [facility] CLIA [id number] [address] [place] [address] [place] Urea nitrogen [Mass/Vol] 63 mg/dL High 7-21 [facility] Comment on above: Order Comment: Speci men Type: URINE SPECIMEN Ordering Facility: [facility] Address: [address] [place] [address] [place] [address] Performed By: #### L [id number] #### [facility] CLIA [id number] [address] [place] [address] [facility] ECG COMPLETEon 12-10-2024 ECG COMPLETE Ventricular Rate : 7 9 BPM QRS Duration : 118 ms Q-T Interval : 418 ms QTC Calculation(Bazett) : 479 ms Calculated R [place] : -30 degrees Calculated T [place] : 161 degrees ATRIAL FIBRILLATION WITH PREMATURE VENTRICULAR OR ABERRANTLY CONDUCTED COMPLEXES LEFT AXIS DEVIATION LEFT VENTRICULAR HYPERTROPHY WITH QRS WIDENING ( R in aVL , Landen product ) T WAVE ABNORMALITY, CONSIDER LATERAL ISCHEMIA ABNORMAL ECG No Stemi Confirmed by ANSON MANRIQUE DO ([id number]) on 12/10/2024 3:12:25 PM NAME : BERTA SANCHES PID : [id number] : 1945 Gender : Female Race : ORD : [id number] Procedure Date : Dec 10 2024 07:55:48 Edit Date : Dec 10 2024 15:12:31 Diagnosis: ATRIAL FIBRILLATION WITH PREMATURE VENTRICULAR OR ABERRANTLY CONDUCTED COMPLEXES LEFT AXIS DEVIATION LEFT VENTRICULAR HYPERTROPHY WITH QRS WIDENING ( R in aVL , Landen product ) T WAVE ABNORMALITY, CONSIDER LATERAL ISCHEMIA ABNORMAL ECG No Stemi Confirmed by ANSON MANRIQUE DO ([id number]) on 12/10/2024 3:12:25 PM Test Reason : Chest Pain Location : 1 : ER ED Overread By : ANSON MANRIQUE DO Edited By : ANSON MANRIQUE DO Referred By : , Acquired by : [id number], [facility] ED NOTEon 12-10-2024 ED NOTE HNO ID: [id number] Author: RODERICK BRYANT, DOUG Service: ? Author Type: Registered Nurse Type: ED Notes Filed: 12/10/2024 07:36 Note Text: DO Ronak cortez at bedside [facility] ED PROV NOTEon 12-10-2024 ED PROV NOTE HNO ID: [id number] Author: ANSON MANRIQUE DO Service: Emergency Medicine [...] with nuclar stress CHF (congestive heart failure) ([facility]) Cholesteatoma of right ear surgical removal Chronic mastoiditis of left side Chronic renal failure, stage 3b (HCC) 04/15/2022 Diabetes (HCC) Diabetes (HCC) GERD (gastroesophageal reflux disease) H/O: GI bleed High blood pressure Hypercholesterolemia Mastoiditis of right side s/p mastoidectomy, complete opacitificationright tympanic cavity and mastoid cells on CT 06/01/16 Mitral valve regurgitation Pacemaker 10/21/[address] SELAM BARTLETT W1DR01 pulse generator, his bundle lead, right atrial lead Peripheral arterial disease Rheumatic fever Steatosis, liver 03/26/2014 fatty liver on US. 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 Lua PACEMAKER 10/2019 PART. HYSTERECTOMY W/WO RMVL OVARIES/TUBES 1974 h/o cervical cancer ovaries remain PAST SURGICAL HISTORY OF 1996 Aortic valve repair, Dr. Apodaca PAST SURGICAL HISTORY OF 2001 [address] Beltrán, [facility] PAST SURGICAL HISTORY OF 2015 clipping and [...] Weight H (more content not included)... Normal [facility] HIGH SENSITIVITY TROPONIN T (INITIAL)on 12-10-2024 Troponin T.cardiac High sensitivity method [Mass/Vol] 72 ng/L High <[address] [place] [address] Comment on above: Order Comment: Speci men Type: URINE SPECIMEN Ordering Facility: [facility] Address: [address] [place] [address] Performed By: #### L [id number] #### [facility] CLIA [id number] [address] HIGH SENSITIVITY TROPONIN T (SECOND)on 12-10-2024 Troponin T.cardiac High sensitivity method [Mass/Vol] 66 ng/L High <[address] [place] [address] Comment on above: Order Comment: Speci men Type: BLOOD SPECIMEN Ordering Facility: [facility] Address: [address] [place] [address] Performed By: #### 2 132-9, 2284-8 #### [facility] CLIA [id number] [address] HIGH SENSITIVITY TROPONIN T (THIRD) 3 HRS AFTER INITIALon 12-10-2024 Troponin T.cardiac High sensitivity method [Mass/Vol] 63 ng/L High <[address] [place] [address] Comment on above: Order Comment: Speci men Type: BLOOD SPECIMEN Ordering Facility: [facility] Address: [address] [place] [address] Performed By: #### 2 132-9, 2284-8 #### [facility] CLIA [id number] [address] [id number] [facility] HISTORY PHYSICALon HISTORY PHYSICAL HNO ID: [id number] Author: JUAN DIEGO KNOWLES MD Service: Hospital Medicine Author Type: Physician Type: H&P Filed: 12/10/2024 13:50 Note Text: HISTORY AND PHYSICAL EXAMINATION PRIMARY CARE PHYSICIAN: Deysi Collazo APRN.MANAGER REGULATORY HPI: 79 yo woman with hx of [...] regurgitation Pacemaker 10/21/[address] SELAM BARTLETT W1DR01 pulse generator, his bundle lead, right atrial lead Peripheral arterial disease Rheumatic fever Steatosis, liver 03/26/2014 fatty liver on US. 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 Lua PACEMAKER 10/2019 PART. HYSTERECTOMY W/WO RMVL OVARIES/TUBES 1974 h/o cervical cancer ovaries remain PAST SURGICAL HISTORY OF 1996 Aortic valve repair, Dr. Apodaca PAST SURGICAL HISTORY OF 2001 [address] Beltrán, [facility] PAST SURGICAL HISTORY OF 2016 clipping and [...] progressive SO (more content not included)... Normal [facility] Magnesium [facility] 12-10 Magnesium [Mass/Vol] 1.9 mg/dL Normal 1.7-2.3 [facility] Comment on above: Order Comment: Speci men Type: URINE SPECIMEN Ordering Facility: [facility] Address: [address] [place] [address] Performed By: #### L [id number] #### [facility] CLIA [id number] [address] [place] [address] [place] NT-proBNP [facility] 12-10 Natriuretic peptide.B prohormone N-Terminal [Mass/Vol] 95737 pg/mL High <450 [facility] Comment on above: Order Comment: Speci men Type: URINE SPECIMEN Ordering Facility: [facility] Address: [address] [place] [address] Performed By: #### L [id number] #### [facility] CLIA [id number] [address] [place] [address] [place] XR CHEST 1V FRONTAL PORTon [...] effusions or pneumothorax. Cardiomediastinal silhouette: There is cardiomegaly/enlargemen t of the cardiac silhouette. Other: None. IMPRESSION: No acute radiographic abnormalities in the lungs. Cardiomegaly/enlargemen t of the cardiac silhouette. Supervisory Forester: JAMES Transcribe Date/Time: Dec 10 2024 8:28A Dictated by : KIERSTEN MONTENEGRO MD This examination was interpreted and the report reviewed and electronically signed by: KIERSTEN MOTNENEGRO MD on Dec 10 2024 8:31AM EST [id number] Normal [facility] Basic metabolic 2000 panelon 12-01-2024 Anion gap [Moles/Vol] 14 mmol/L Normal 8-15 [facility] Comment on above: Order Comment: Speci men Type: BLOOD SPECIMEN Ordering Facility: [facility] Address: [address] [place] [address] Performed By: #### 2 4331-1 #### [facility] CLIA [id number] [address] [place] [address] [place] [facility] [id number] [address] [place] [address] [place] #### 04288-6 #### [facility] CLIA [id number] [address] [place] [address] [place] Calcium [Mass/Vol] 9.5 mg/dL Normal 8.5-10.2 [facility] Comment on above: Order Comment: Speci men Type: BLOOD SPECIMEN Ordering Facility: [facility] Address: [address] [place] [address] Performed By: #### 2 4331-1 #### [facility] CLIA [id number] [address] [place] [address] [place] [facility] CLIA [id number] [address] [place] [address] [place] #### 34283-7 #### [facility] CLIA [id number] [address] [place] [address] [place] Chloride [Moles/Vol] 97 mmol/L Low 98-107 [facility] Comment on above: Order Comment: Speci men Type: BLOOD SPECIMEN Ordering Facility: [facility] Address: [address] [place] [address] Performed By: #### 2 4331-1 #### [facility] CLIA [id number] [address] [address] [place] [facility] CLIA [id number] [address] [place] [address] [place] #### 37476-6 #### [facility] CLIA [id number] [address] [id number] [place] CO2 [Moles/Vol] 22 mmol/L Normal 22-30 [facility] Comment on above: Order Comment: Speci men Type: BLOOD SPECIMEN Ordering Facility: [facility] Address: [address] [place] [address] Performed By: #### 2 4331-1 #### [facility] CLIA [id number] [address] [place], [place] [id number] [place] [facility] CLIA [id number] [address] [place] [address] [place] #### 60416-0 #### [facility] CLIA [id number] [address] [place], [place] [id number] [place] Creatinine [Mass/Vol] 1.79 mg/dL High 0.58-0.96 [facility] Comment on above: Order Comment: Speci men Type: BLOOD SPECIMEN Ordering Facility: [facility] Address: [address] [place] [address] Performed By: #### 2 4331-1 #### [facility] CLIA [id number] [address] [id number] [place] [facility] CLIA [id number] [address] [place] [address] [place] #### 41041-5 #### [facility] CLIA [id number] [address] [place] [address] [place] Creatinine and Glomerular filtration rate.predicted panel (S/P/Bld) 29 mL/min/1.73m??? Low >=60 [facility] Comment on above: Order Comment: Annie ricci Type: BLOOD SPECIMEN Ordering Facility: [facility] Address: [address] [place] [address] Result Comment: Mira mated Glomerular Filtration Rate [...] GFR. Performed By: #### 2 4331-1 #### [facility] CLIA [id number] [address] [place] [address] [place] [facility] CLIA [id number] [address] [place] [address] [place] #### 12796-5 #### [facility] CLIA [id number] [address] [place] [address] [place] Glucose [Mass/Vol] 151 mg/dL High 74-99 [facility] Comment on above: Order Comment: Annie ricci Type: BLOOD SPECIMEN Ordering Facility: [facility] Address: [address] [place] [address] Result Comment: The [place] Diabetes Association (ADA) provides guidance for cutoff [...] Standards of Medical Care in Diabetes 2016, [place] Diabetes Association. Diabetes Care. 2016.39(Suppl 1). Performed By: #### 2 4331-1 #### [facility] CLIA [id number] [address] [place] [address] [place] [facility] CLIA [id number] [address] [place] [address] [place] #### 97049-7 #### [facility] CLIA [id number] [address] [place] [address] [place] Potassium [Moles/Vol] 4.2 mmol/L Normal 3.7-5.1 [facility] Comment on above: Order Comment: Speci men Type: BLOOD SPECIMEN Ordering Facility: [facility] Address: [address] [place] [address] Performed By: #### 2 4331-1 #### [facility] CLIA [id number] [address] [place] [address] [place] [facility] [id number] [address] [place] [address] [place] #### 49246-5 #### [facility] CLIA [id number] [address] [place] [address] [place] Sodium [Moles/Vol] 133 mmol/L Low 136-144 [facility] Comment on above: Order Comment: Speci men Type: BLOOD SPECIMEN Ordering Facility: [facility] Address: [address] [place] [address] Performed By: #### 2 4331-1 #### [facility] CLIA [id number] [address] [place] [address] [place] [facility] [id number] [address] [place] [address] [place] #### 63406-2 #### [facility] CLIA [id number] [address] [place] [address] [place] Urea nitrogen [Mass/Vol] 37 mg/dL High 7-21 [facility] Comment on above: Order Comment: Speci men Type: BLOOD SPECIMEN Ordering Facility: [facility] Address: [address] [place] [address] Performed By: #### 2 4331-1 #### [facility] CLIA [id number] [address] [place] [address] [place] [facility] CLIA [id number] [address] [place] [address] [place] #### 54442-9 #### [facility] CLIA [id number] [address] [place] [address] [place] NT-proBNP [facility] 12-01 Natriuretic peptide.B prohormone N-Terminal [Mass/Vol] 14395 pg/mL High <450 [facility] Comment on above: Order Comment: Speci men Type: BLOOD SPECIMEN Ordering Facility: [facility] Address: [address] [place] [address] Performed By: #### 3 3762-6 #### [facility] CLIA [id number] [address] [place] [address] [place] Basic metabolic 2000 panelon 11-20-2024 Anion gap [Moles/Vol] 19 mmol/L High 8-15 [facility] Comment on above: Order Comment: Speci men Type: BLOOD SPECIMEN Ordering Facility: [facility] Address: [address] [place] [address] Performed By: #### 3 3762-6 #### [facility] CLIA [id number] [address] [place] [address] [place] Calcium [Mass/Vol] 9.5 mg/dL Normal 8.5-10.2 [facility] Comment on above: Order Comment: Speci men Type: BLOOD SPECIMEN Ordering Facility: [facility] Address: [address] [place] [address] Performed By: #### 3 3762-6 #### [facility] CLIA [id number] [address] [place] [address] [place] Chloride [Moles/Vol] 98 mmol/L Normal 98-107 [facility] Comment on above: Order Comment: Speci men Type: BLOOD SPECIMEN Ordering Facility: [facility] Address: [address] [place] [address] Performed By: #### 3 3762-6 #### [facility] CLIA [id number] [address] [place] [address] [place] CO2 [Moles/Vol] 18 mmol/L Low 22-30 [facility] Comment on above: Order Comment: Speci men Type: BLOOD SPECIMEN Ordering Facility: [facility] Address: [address] [place] [address] Performed By: #### 3 3762-6 #### [facility] CLIA [id number] [address] [place] [address] [place] Creatinine [Mass/Vol] 1.70 mg/dL High 0.58-0.96 [facility] Comment on above: Order Comment: Speci men Type: BLOOD SPECIMEN Ordering Facility: [facility] Address: [address] [place] [address] Performed By: #### 3 3762-6 #### [facility] CLIA [id number] [address] [place] [address] [place] Creatinine and Glomerular filtration rate.predicted panel (S/P/Bld) 30 mL/min/1.73m??? Low >=60 [facility] Comment on above: Order Comment: Speci men Type: BLOOD SPECIMEN Ordering Facility: [facility] Address: [address] [place] [address] Result Comment: Mira mated Glomerular Filtration Rate [...] GFR. Performed By: #### 3 3762-6 #### [facility] CLIA [id number] [address] [place] [address] [place] Glucose [Mass/Vol] 150 mg/dL High 74-99 [facility] Comment on above: Order Comment: Annie ricci Type: BLOOD SPECIMEN Ordering Facility: [facility] Address: [address] [place] [address] Result Comment: The [place] Diabetes Association (ADA) provides guidance for cutoff [...] Standards of Medical Care in Diabetes 2016, [place] Diabetes Association. Diabetes Care. 2016.39(Suppl 1). Performed By: #### 3 3762-6 #### [facility] CLIA [id number] [address] [place] [address] [place] Potassium [Moles/Vol] 4.6 mmol/L Normal 3.7-5.1 [facility] Comment on above: Order Comment: Annie ricci Type: BLOOD SPECIMEN Ordering Facility: [facility] Address: [address] [place] [address] Performed By: #### 3 3762-6 #### [facility] CLIA [id number] [address] [place] [address] [place] Sodium [Moles/Vol] 135 mmol/L Low 136-144 [facility] Comment on above: Order Comment: Speci men Type: BLOOD SPECIMEN Ordering Facility: [facility] Address: [address] [place] [address] Performed By: #### 3 3762-6 #### [facility] CLIA [id number] [address] [place] [address] [place] Urea nitrogen [Mass/Vol] 37 mg/dL High 7-21 [facility] Comment on above: Order Comment: Speci men Type: BLOOD SPECIMEN Ordering Facility: [facility] Address: [address] [place] [address] Performed By: #### 3 3762-6 #### [facility] CLIA [id number] [address] [place] [address] [place] CNOVon 11-20-2024 CNOV Office Visit (JOHNNY ) BERTA SANCHES ([id number]) 1945 [facility] Date Time Provider Department 11/20/24 8:00 AM CARLA BURDICK During your visit today, we recorded the following information about you: Pulse Respiration Blood pressure Weight 84/minute 12/minute 154/62 65.2 kg Height 1.575 m Carla Burdick MD 11/20/2024 8:50 AM Signed [facility] SECTION OF REGIONAL CARDIOLOGY Cardiology ([facility]) [address] [facility] [id number] OUTPATIENT VISIT DATE PRIMARY CARE PHYSICIAN: Doreen Le [address] [facility] [place] [facility] [place] [address] HISTORY OF PRESENT ILLNESS: Ms. Sanches is [...] regurgitation Pacemaker 10/21/[address] SELAM BARTLETT W1DR01 pulse generator, his bundle lead, right atrial lead Peripheral arterial disease Rheumatic fever Steatosis, liver 03/26/2014 fatty liver on US. 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 Lua PACEMAKER 10/2019 PART. HYSTERECTOMY W/WO RMVL OVARIES/TUBES 1974 h/o cervical cancer ovaries remain PAST SURGICAL HISTORY OF 1996 Aortic valve repair, Dr. Apodaca PAST SURGICAL HISTORY OF 2001 [address] Beltrán, [facility] PAST SURGICAL HISTORY OF 2015 clipping and [...] Hypotension MEDICATIONS: (more content not included)... Normal [facility] NT-proBNP [facility] 11-20 Natriuretic peptide.B prohormone N-Terminal [Mass/Vol] 65858 pg/mL High <450 [facility] Comment on above: Order Comment: Speci men Type: BLOOD SPECIMEN Ordering Facility: [facility] Address: [address] [place] [address] [place] [address] Performed By: #### 3 4260-6 #### [facility] CLIA [id number] [address] [place] [address] STATES OF [facility] Connie 11-14-2024 CNPN Telephone (JOHNNY) VERÓNICABERTA ([id number]) 1945 F [facility] Date Time Provider Department 11/14/24 CARLA BURDICK [...] on Wednesday when I am there at [place]. Will plan to repeat blood work at [...] Colovesical f (more content not included)... Normal [facility] Basic metabolic 2000 panelon 11-13-2024 Anion gap [Moles/Vol] 11 mmol/L Normal 8-15 [facility] Comment on above: Order Comment: Speci men Type: BLOOD SPECIMEN Ordering Facility: [facility] Address: [address] [place] [address] Performed By: #### 2 4331-1 #### [facility] CLIA [id number] [address] [place] [address] [place] [facility] CLIA [id number] [address] [place] [address] [place] #### 35502-7 #### [facility] CLIA [id number] [address] [place] [address] [place] Calcium [Mass/Vol] 9.3 mg/dL Normal 8.5-10.2 [facility] Comment on above: Order Comment: Speci men Type: BLOOD SPECIMEN Ordering Facility: [facility] Address: [address] [place] [address] Performed By: #### 2 4331-1 #### [facility] CLIA [id number] [address] [place] [address] [place] [facility] CLIA [id number] [address] [place] [address] [place] #### 27543-0 #### [facility] CLIA [id number] [address] [place] [address] [place] Chloride [Moles/Vol] 98 mmol/L Normal 98-107 [facility] Comment on above: Order Comment: Speci men Type: BLOOD SPECIMEN Ordering Facility: [facility] Address: [address] [place] [address] Performed By: #### 2 4331-1 #### [facility] CLIA [id number] [address] [place] [address] [place] [facility] CLIA [id number] [address] [place] [address] [place] #### 46942-0 #### [facility] CLIA [id number] [address] [place] [address] [place] CO2 [Moles/Vol] 26 mmol/L Normal 22-30 [facility] Comment on above: Order Comment: Speci men Type: BLOOD SPECIMEN Ordering Facility: [facility] Address: [address] [place] [address] Performed By: #### 2 4331-1 #### [facility] CLIA [id number] [address] [place] [address] [place] [facility] [id number] [address] [place] [address] [place] #### 72011-9 #### [facility] CLIA [id number] [address] [place] [address] [place] Creatinine [Mass/Vol] 1.82 mg/dL High 0.58-0.96 [facility] Comment on above: Order Comment: Speci men Type: BLOOD SPECIMEN Ordering Facility: [facility] Address: [address] [place] [address] Performed By: #### 2 4331-1 #### [facility] CLIA [id number] [address] [place] [address] [place] [facility] [id number] [address] [place] [address] [place] #### 40549-2 #### [facility] CLIA [id number] [address] [place] [address] [place] Creatinine and Glomerular filtration rate.predicted panel (S/P/Bld) 28 mL/min/1.73m??? Low >=60 [facility] Comment on above: Order Comment: Speci men Type: BLOOD SPECIMEN Ordering Facility: [facility] Address: [address] [place] [address] Result Comment: Mira mated Glomerular Filtration Rate [...] GFR. Performed By: #### 2 4331-1 #### [facility] CLIA [id number] [facility] [address] CLIA [id number] [address] [place] [address] [place] #### 42176-2 #### [facility] CLIA [id number] [address] [place] [address] [place] Glucose [Mass/Vol] 127 mg/dL High 74-99 [facility] Comment on above: Order Comment: Speci men Type: BLOOD SPECIMEN Ordering Facility: [facility] Address: [address] [place] [address] Result Comment: The [place] Diabetes Association (ADA) provides guidance for cutoff [...] Standards of Medical Care in Diabetes 2016, [place] [employer] Association. Diabetes Care. 2016.39(Suppl 1). Performed By: #### 2 4331-1 #### [facility] CLIA [id number] [address] STATES OF [place] [facility] CLIA [id number] [address] [place] [address] [place] #### 49683-0 #### [facility] CLIA [id number] [address] [place] [address] [place] Potassium [Moles/Vol] 4.0 mmol/L Normal 3.7-5.1 [facility] Comment on above: Order Comment: Speci men Type: BLOOD SPECIMEN Ordering Facility: [facility] Address: [address] [place] [address] Performed By: #### 2 4331-1 #### [facility] CLIA [id number] [address] [place] [address] [place] [facility] CLIA [id number] [address] [place] [address] [place] #### 87743-5 #### [facility] CLIA [id number] [address] [place] [address] [place] Sodium [Moles/Vol] 135 mmol/L Low 136-144 [facility] Comment on above: Order Comment: Speci men Type: BLOOD SPECIMEN Ordering Facility: [facility] Address: [address] [place] [address] Performed By: #### 2 4331-1 #### [facility] CLIA [id number] [address] [place] [address] [place] [facility] CLIA [id number] [address] [place] [address] [place] #### 60082-8 #### [facility] CLIA [id number] [address] [place] [address] [place] Urea nitrogen [Mass/Vol] 41 mg/dL High 7-21 [facility] Comment on above: Order Comment: Speci men Type: BLOOD SPECIMEN Ordering Facility: [facility] Address: [address] [place] [address] Performed By: #### 2 4331-1 #### [facility] CLIA [id number] [address] [place] [address] [place] [facility] CLIA [id number] [address] [place] [address] [place] #### 35386-2 #### [facility] CLIA [id number] [address] [place] [address] [place] NT-proBNP [facility] 11-13 Natriuretic peptide.B prohormone N-Terminal [Mass/Vol] 11601 pg/mL High <450 [facility] Comment on above: Order Comment: Speci men Type: BLOOD SPECIMEN Ordering Facility: [facility] Address: [address] [place] [address] Performed By: #### 2 4331-1 #### [facility] CLIA [id number] [address] [place] [address] [place] [facility] [id number] [address] [place] [address] [place] #### 17736-2 #### [facility] CLIA [id number] [address] [place] [address] [place] CNOVon 11-06-2024 CNOV Office Visit (JOHNNY ) BERTA SANCHES ([id number]) 1945 F [facility] Date Time Provider Department 11/06/24 2:40 PM CARLA BURDICK During your visit today, we recorded the following information about you: Pulse Respiration Blood pressure Weight 68/minute 12/minute 134/54 68.9 kg Height 1.575 m Carla Burdick MD 11/06/2024 5:01 PM Signed [facility] SECTION OF REGIONAL CARDIOLOGY Cardiology ([facility]) [address] [facility] [id number] OUTPATIENT VISIT DATE 11/06/2024 PRIMARY CARE PHYSICIAN: Doreen Le [address] [facility] [place] [address] HISTORY OF PRESENT ILLNESS: Ms. Sanches is [...] to the hospital while vacationing in [place]. She underwent SMA stent placement. This was followed by a long admission for decompensated congestive heart failure in the setting of the renal insufficiency. Since returning from [place], she has had difficulties with weight gain [...] regurgitation Pacemaker 10/21/[address] SELAM BARTLETT W1DR01 pulse generator, his bundle lead, right atrial lead Peripheral arterial disease Rheumatic fever Steatosis, liver 03/26/2014 fatty liver on US. 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 Lua PACEMAKER 10/2019 PART. HYSTERECTOMY W/WO RMVL OVARIES/TUBES 1973 h/o cervical cancer ovaries remain PAST SURGICAL HISTORY OF 1996 Aortic valve repair, Dr. Apodaca PAST SURGICAL HISTORY OF 2001 [address] Beltrán, [facility] PAST SURGICAL HISTORY OF 2015 clipping and [...] Allergen Reactions (more content not included)... Normal [facility] Basic metabolic 2000 panelon 11-03-2024 Anion gap [Moles/Vol] 11 mmol/L 8 - 15 mmol/L [facility] Calcium [Mass/Vol] 9.1 mg/dL 8.5 - 10. 2 mg/dL [facility] Chloride [Moles/Vol] 84 mmol/L Low 98 - 10 7 mmol/L [facility] CO2 [Moles/Vol] 27 mmol/L 22 - 30 mmol/L [facility] Creatinine [Mass/Vol] 2.36 mg/dL High 0.58 - 0.96 mg/dL [facility] GFR/1.73 sq M.predicted among non-blacks MDRD (S/P/Bld) [Vol rate/Area] 20 mL/min/{1.73_m2} Low - PINF [facility] Comment on above: Estimated Glomerular Filtration Rate [...] 114 mg/dL High 74 - 99 mg/dL [facility] Comment on above: The [place] Diabete s Association (ADA) provides guidance for [...] Standards of Medical Care in Diabetes 2016, [place] Diabetes Association. Diabetes Care. 2016.39(Suppl 1). Interpretation and review of laboratory results Abnormal [facility] Potassium [Moles/Vol] 4.3 mmol/L 3.7 - 5.1 mmol/L [facility] Sodium [Moles/Vol] 122 mmol/L Low 136 - 144 mmol/L [facility] Urea nitrogen [Mass/Vol] 57 mg/dL High 7 - 21 mg/dL [facility] Anion gap [Moles/Vol] 11 mmol/L Normal 8-15 [facility] Comment on above: Order Comment: Speci men Type: BLOOD SPECIMEN Ordering Facility: [facility] Address: [address] [place] [address] Performed By: #### 2 132-9, 2283-8 #### [facility] CLIA [id number] [address] [place] [address] [place] Calcium [Mass/Vol] 9.1 mg/dL Normal 8.5-10.2 [facility] Comment on above: Order Comment: Speci men Type: BLOOD SPECIMEN Ordering Facility: [facility] Address: [address] [place] [address] Performed By: #### 2 132-9, 2283-8 #### [facility] CLIA [id number] [address] [place] [address] [place] Chloride [Moles/Vol] 84 mmol/L Low 98-107 [facility] Comment on above: Order Comment: Speci men Type: BLOOD SPECIMEN Ordering Facility: [facility] Address: [address] [place] [address] Performed By: #### 2 132-9, 8 #### [facility] CLIA [id number] [address] [place] [address] [place] CO2 [Moles/Vol] 27 mmol/L Normal 22-30 [facility] Comment on above: Order Comment: Speci men Type: BLOOD SPECIMEN Ordering Facility: [facility] Address: [address] [place] [address] Performed By: #### 2 132-9, 2283-8 #### [facility] CLIA [id number] [address] [place] [address] [place] Creatinine [Mass/Vol] 2.36 mg/dL High 0.58-0.96 [facility] Comment on above: Order Comment: Speci men Type: BLOOD SPECIMEN Ordering Facility: [facility] Address: [address] [place] [address] Performed By: #### 2 132-9, 4-8 #### [facility] CLIA [id number] [address] STATES OF [place] Creatinine and Glomerular filtration rate.predicted panel (S/P/Bld) 20 mL/min/1.73m??? Low >=60 [facility] Comment on above: Order Comment: Annie ricci Type: BLOOD SPECIMEN Ordering Facility: [facility] Address: [address] [place] [address] Result Comment: Mira mated Glomerular Filtration Rate [...] actual GFR. Performed By: #### 2 132-9, 4-8 #### [facility] CLIA [id number] [address] [place] [address] [place] Glucose [Mass/Vol] 114 mg/dL High 74-99 [facility] Comment on above: Order Comment: Annie ricci Type: BLOOD SPECIMEN Ordering Facility: [facility] Address: [address] [place] [address] Result Comment: The [place] Diabetes Association (ADA) provides guidance for cutoff [...] Standards of Medical Care in Diabetes 2016, [place] [employer]. Diabetes Care. 2016.39(Suppl 1). Performed By: #### 2 132-9, 2284-8 #### [facility] CLIA [id number] [address] Potassium [Moles/Vol] 4.3 mmol/L Normal 3.7-5.1 [facility] Comment on above: Order Comment: Annie ricci Type: BLOOD SPECIMEN Ordering Facility: [facility] Address: [address] [place] [address] Performed By: #### 2 132-9, 2284-8 #### [facility] CLIA [id number] [address] Sodium [Moles/Vol] 122 mmol/L Low 136-144 [facility] Comment on above: Order Comment: Annie ricci Type: BLOOD SPECIMEN Ordering Facility: [facility] Address: [address] [place] [address] Performed By: #### 2 132-9, 2283-8 #### [facility] CLIA [id number] [address] Urea nitrogen [Mass/Vol] 57 mg/dL High 7-21 [facility] Comment on above: Order Comment: Annie ricci Type: BLOOD SPECIMEN Ordering Facility: [facility] Address: [address] [place] [address] Performed By: #### 2 132-9, 2283-8 #### [facility] CLIA [id number] [address] CNOVon 11-03-2024 CNOV Office Visit ([facility] ) BERTA SANCHES ([id number]) 1945 [facility] Date Time Provider Department 11/03/24 9:00 AM ALBIN GU [facility] During your visit today, we recorded the following information about you: Pulse Blood pressure Weight 66/minute 121/44 66.7 kg Albin Gu APRN.MANAGER REGULATORY 11/03/2024 10:04 AM Addendum Continue current medications [...] or concern, you can call me at [phone]. Albin Gu APRN.CNP 11/03/2024 10:28 AM Signed [facility] [place] [facility] OUTPATIENT VISIT DATE November 03, 2024 OUTPATIENT VISIT TYPE ESTABLISHED PRIMARY CARE PHYSICIAN: Deysi Collazo APRN.JASPREET CHIEF COMPLAINT: Patient presents with: Breathing [...] and was worried about traveling home to [place] in a few days. Discussed with her taking lasix as it was prescribed. As her spironolactone was stopped, did advise patient restart this at 25 mg once a day for four days only. She was instructed to call office in a week to review symptoms. On 10/15, patient presented back to [facility] for gastrointestinal bleed. She had a [...] and entresto. The patient wished to leave [facility] so she could return to [place]. Cardiology and Pulmonary agreed with discharge. Today, the patient reports feeling okay. Since she was hospitalized in [place], she has not felt that well. Feels very tired. Denies shortness of breath. Was seen by her PCP on Wednesday who suggested patient be admitted due to significant worsening in kidney function however, the patient and declined admission as she just returned home the day before. States she was started on bumex drip and then received oral bumex while in [place] and noted a worsening in kidney function. [...] chicken, asparagus and salad. While in [place], she was very conscious about her diet. She weighed every day. She feels after the first hospitalization, she gained approx 20 lbs which she did call and discuss this with this HF EDGE STRIPPER. Wearing lidocaine patch over site to right side of neck as she mentions skyler (more content not included)... Normal [facility] 11-03-2024 [facility] Telephone ([facility]) VERÓNICABERTA Glenna ([id number]) 1945 [place] Date Time Provider Department 11/03/24 ALBIN GU [facility] During your visit today, we recorded the following information about you: Albin Gu APRN.MANAGER REGULATORY 11/03/2024 12:49 PM Signed Called patient to [...] agree with plan of care. Albin Gu APRN.[facility] Allergies As of Date: 11/03/2024 Noted Allergy Reaction PROTAMINE 01/12/2022 10 - Anaphylaxis Comments: Had acute drop in blood pressure and end tidal Co2 shortly after administration during watchman procedure on 01/12/22, treated with 60 mcg epinephrine and 10 mg dexamethasone with good response. PROPOFOL 04/07/2023 14 - Other: See Comments Comments: Hypotension Date Reviewed: 11/03/2024 Reviewed by: Gwen Valentine, DOUG - Fully Assessed Reason for Visit: Results [...] (HCC) [C64.9] (more content not included)... Normal [facility] CBC W Auto Differential pane l (Bld)on 10-31-2024 Basophils (Bld) [#/Vol] 0.06 10*3/uL [facility] Basophils/100 WBC (Bld) 1 % C [facility] Differential cell count method Nom (Bld) Auto [facility] Eosinophils (Bld) [#/Vol] 0.13 10*3/uL [facility] Eosinophils/100 WBC (Bld) 2.1 % [facility] Erythrocyte distribution width (RBC) [Ratio] 16.8 % High 11.5 - 15.0 % [facility] Hematocrit (Bld) [Volume fraction] 26.3 % Low 36.0 - 46.0 % [facility] Hemoglobin (Bld) [Mass/Vol] 8.7 g/dL Low 11.5 - 15.5 g/dL [facility] Immature granulocytes (Bld) [#/Vol] 0.04 10*3/uL [facility] Immature granulocytes/100 WBC (Bld) 0.6 % [facility] Interpretation and review of laboratory results Abnormal [facility] Lymphocytes (Bld) [#/Vol] 1.29 10*3/uL [facility] Lymphocytes/100 WBC (Bld) 20.6 % [facility] MCH (RBC) [Entitic mass] 31.6 pg 26.0 - 34.0 pg [facility] MCHC (RBC) [Mass/Vol] 33.1 g/dL 30.5 - 36.0 g/dL [facility] MCV (RBC) [Entitic vol] 95.6 fL 80.0 - 100.0 fL [facility] Monocytes (Bld) [#/Vol] 0.82 10*3/uL [facility] Monocytes/100 WBC (Bld) 13.1 % C [facility] Neutrophils (Bld) [#/Vol] 3.92 10*3/uL [facility] Neutrophils/100 WBC (Bld) 62.6 % [facility] Nucleated RBC (Bld) [#/Vol] [facility] Nucleated RBC/100 WBC (Bld) [Ratio] 0 % /100 WBC [facility] Platelet mean volume (Bld) [Entitic vol] 9.5 fL 9.0 - 12.7 fL [facility] Platelets (Bld) [#/Vol] 202 10*3/uL [facility] RBC (Bld) [#/Vol] 2.75 10*6/uL Low 3.90 - 5.2 0 m/uL [facility] WBC (Bld) [#/Vol] 6.26 10*3/uL [facility] Basophils (Bld) [#/Vol] 0.06 10*3/uL Normal <0.11 [facility] Comment on above: Order Comment: Speci men Type: BLOOD SPECIMEN Ordering Facility: [facility] Address: [address] [place] [address] Performed By: #### 2 4331-1 #### [facility] CLIA [id number] [address] [place] [address] [place] [facility] [id number] [address] [place] [address] [place] #### 79443-5 #### [facility] CLIA [id number] [address] [place] [address] [place] Basophils/100 WBC (Bld) 1.0 % Normal [facility] Comment on above: Order Comment: Speci men Type: BLOOD SPECIMEN Ordering Facility: [facility] Address: [address] [place] [address] Performed By: #### 2 4331-1 #### [facility] CLIA [id number] [address] [place] [address] [place] [facility] [id number] [address] [place] [address] [place] #### 89936-3 #### [facility] CLIA [id number] [address] [place] [address] [place] Differential cell count method Nom (Bld) Auto Normal [facility] Comment on above: Order Comment: Speci men Type: BLOOD SPECIMEN Ordering Facility: [facility] Address: [address] [place] [address] Performed By: #### 2 4331-1 #### [facility] CLIA [id number] [address] [place] [address] [place] [facility] CLIA [id number] [address] [place] [address] [place] #### [id number] #### [facility] CLIA [id number] [address] [place] [address] [place] Eosinophils (Bld) [#/Vol] 0.13 10*3/uL Normal <0.46 [facility] Comment on above: Order Comment: Speci men Type: BLOOD SPECIMEN Ordering Facility: [facility] Address: [address] [place] [address] Performed By: #### 2 4331-1 #### [facility] CLIA [id number] [address] [place] [address] [place] [id number] [place] [address] [place] #### [id number] #### [facility] CLIA [id number] [address] [place] [address] [place] Eosinophils/100 WBC (Bld) 2.1 % Normal [facility] Comment on above: Order Comment: Speci men Type: BLOOD SPECIMEN Ordering Facility: [facility] Address: [address] [place] [address] Performed By: #### 2 4331-1 #### [facility] CLIA [id number] [address] [place] [address] [place] [id number] [address] [place] [address] [place] #### [id number] #### [facility] CLIA [id number] [address] [place] [address] [place] Erythrocyte distribution width (RBC) [Ratio] 16.8 % High 11.5-15.0 [facility] Comment on above: Order Comment: Speci men Type: BLOOD SPECIMEN Ordering Facility: [facility] Address: [address] [place] [address] Performed By: #### 2 4331-1 #### [facility] CLIA [id number] [address] [place] [address] [place] [facility] CLIA [id number] [address] [place] [address] [place] #### [id number] #### [facility] CLIA [id number] [address] [place] [address] [place] Hematocrit (Bld) [Volume fraction] 26.3 % Low 36.0-46.0 [facility] Comment on above: Order Comment: Speci men Type: BLOOD SPECIMEN Ordering Facility: [facility] Address: [address] [place] [address] Performed By: #### 2 4331-1 #### [facility] CLIA [id number] [address] [place] [address] [place] [facility] CLIA [id number] [address] [place] [address] [place] #### 48002-5 #### [facility] CLIA [id number] [address] [place] [address] [place] Hemoglobin (Bld) [Mass/Vol] 8.7 g/dL Low 11.5-15.5 [facility] Comment on above: Order Comment: Speci men Type: BLOOD SPECIMEN Ordering Facility: [facility] Address: [address] [place] [address] Performed By: #### 2 4331-1 #### [facility] CLIA [id number] [address] [place] [address] [place] [facility] CLIA [id number] [address] [place] [address] [place] #### [id number] #### [facility] CLIA [id number] [address] [place] [address] [place] Immature granulocytes (Bld) [#/Vol] 0.04 10*3/uL Normal <0.10 [facility] Comment on above: Order Comment: Speci men Type: BLOOD SPECIMEN Ordering Facility: [facility] Address: [address] [place] [address] Performed By: #### 2 4331-1 #### [facility] CLIA [id number] [address] [place] [address] [place] [facility] CLIA [id number] [address] [place] [address] [place] #### 99016-5 #### [facility] CLIA [id number] [address] [place] [address] [place] Immature granulocytes/100 WBC (Bld) 0.6 % Normal [facility] Comment on above: Order Comment: Speci men Type: BLOOD SPECIMEN Ordering Facility: [facility] Address: [address] [place] [address] Performed By: #### 2 4331-1 #### [facility] CLIA [id number] [address] [place] [address] [place] [facility] CLIA [id number] [address] [place] [address] [place] #### 09379-2 #### [facility] CLIA [id number] [address] [place] [address] [place] Lymphocytes (Bld) [#/Vol] 1.29 10*3/uL Normal 1.00-4.00 [facility] Comment on above: Order Comment: Speci men Type: BLOOD SPECIMEN Ordering Facility: [facility] Address: [address] [place] [address] Performed By: #### 2 4331-1 #### [facility] CLIA [id number] [address] [place] [id number] [place] [facility] CLIA [id number] [address] [place] [address] [place] #### 51563-6 #### [facility] CLIA [id number] [address] [place] [address] [place] Lymphocytes/100 WBC (Bld) 20.6 % Normal [facility] Comment on above: Order Comment: Speci men Type: BLOOD SPECIMEN Ordering Facility: [facility] Address: [address] [place] [id number] Performed By: #### 2 4331-1 #### [facility] CLIA [id number] [address] [place] [address] [place] [facility] CLIA [id number] [address] [place] [address] [place] #### 55708-3 #### [facility] CLIA [id number] [address] [place], [place] [address] [place] MCH (RBC) [Entitic mass] 31.6 pg Normal 26.0-34.0 [facility] Comment on above: Order Comment: Speci men Type: BLOOD SPECIMEN Ordering Facility: [facility] Address: [address] [place] [address] Performed By: #### 2 4331-1 #### [facility] CLIA [id number] [address] [place] [id number] [place] [facility] CLIA [id number] [address] [place] [address] [place] #### 90172-4 #### [facility] CLIA [id number] [address] [place] [address] [place] MCHC (RBC) [Mass/Vol] 33.1 g/dL Normal 30.5-36.0 [facility] Comment on above: Order Comment: Speci men Type: BLOOD SPECIMEN Ordering Facility: [facility] Address: [address] [place] [address] Performed By: #### 2 4331-1 #### [facility] CLIA [id number] [address] [place] [address] [place] [facility] [id number] [address] [place] [address] [place] #### 42648-8 #### [facility] CLIA [id number] [address] [place] [address] [place] MCV (RBC) [Entitic vol] 95.6 fL Normal 80.0-100.0 C [facility] Comment on above: Order Comment: Speci men Type: BLOOD SPECIMEN Ordering Facility: [facility] Address: [address] [place] [address] Performed By: #### 2 4331-1 #### [facility] CLIA [id number] [address] [place] [address] [place] [facility] [id number] [address] [place] [address] [place] #### 47857-4 #### [facility] CLIA [id number] [address] [place] [address] [place] Monocytes (Bld) [#/Vol] 0.82 10*3/uL Normal <0.87 [facility] Comment on above: Order Comment: Speci men Type: BLOOD SPECIMEN Ordering Facility: [facility] Address: [address] [place] [address] Performed By: #### 2 4331-1 #### [facility] CLIA [id number] [address] [place] [address] [place] [facility] CLIA [id number] [address] [place] [address] [place] #### [id number] #### [facility] CLIA [id number] [address] [place] [address] [place] Monocytes/100 WBC (Bld) 13.1 % [facility] Comment on above: Order Comment: Speci men Type: BLOOD SPECIMEN Ordering Facility: [facility] Address: [address] [place] [address] Performed By: #### 2 4331-1 #### [facility] CLIA [id number] [address] [place] [address] [place] [facility] CLIA [id number] [address] [place] [address] [place] #### 16323-8 #### [facility] CLIA [id number] [address] [place] [address] [place] Neutrophils (Bld) [#/Vol] 3.92 10*3/uL Normal 1.45-7.50 [facility] Comment on above: Order Comment: Speci men Type: BLOOD SPECIMEN Ordering Facility: [facility] Address: [address] [place] [address] Performed By: #### 2 4331-1 #### [facility] CLIA [id number] [address] [place] [address] [place] [facility] CLIA [id number] [address] [place] [address] [place] #### 26508-0 #### [facility] CLIA [id number] [address] [place], [place] [id number] [place] Neutrophils/100 WBC (Bld) 62.6 % Normal [facility] Comment on above: Order Comment: Speci men Type: BLOOD SPECIMEN Ordering Facility: [facility] Address: [address] [place], [place] [address] Performed By: #### 2 4331-1 #### [facility] CLIA [id number] [address] [place] [address] [place] [facility] CLIA [id number] [address] [place] [address] [place] #### 59665-3 #### [facility] CLIA [id number] [address] [place] [address] [place] Nucleated RBC (Bld) [#/Vol] 10*3/uL Normal <0.01 [facility] Comment on above: Order Comment: Speci men Type: BLOOD SPECIMEN Ordering Facility: [facility] Address: [address] [place] [address] Performed By: #### 2 4331-1 #### [facility] CLIA [id number] [address] [place] [address] [place] [facility] CLIA [id number] [address] [place] [address] [place] #### 70798-5 #### [facility] CLIA [id number] [address] [place] [address] [place] Nucleated RBC/100 WBC (Bld) [Ratio] 0.0 /100 WBC Normal [facility] Comment on above: Order Comment: Speci men Type: BLOOD SPECIMEN Ordering Facility: [facility] Address: [address] [place], [place] [address] Performed By: #### 2 4331-1 #### [facility] CLIA [id number] [address] [place], [place] [id number] [place] [facility] CLIA [id number] [address] [place] [address] [place] #### 86277-9 #### [facility] CLIA [id number] [address] [place] [address] [place] Platelet mean volume (Bld) [Entitic vol] 9.5 fL Normal 9.0-12.7 [facility] Comment on above: Order Comment: Speci men Type: BLOOD SPECIMEN Ordering Facility: [facility] Address: [address] [place] [address] Performed By: #### 2 4331-1 #### [facility] CLIA [id number] [address] [place] [address] [place] [facility] [id number] [address] [place] [address] [place] #### 97024-0 #### [facility] CLIA [id number] [address] [place] [address] [place] Platelets (Bld) [#/Vol] 202 10*3/uL Normal 150-400 [facility] Comment on above: Order Comment: Speci men Type: BLOOD SPECIMEN Ordering Facility: [facility] Address: [address] [place] [address] Performed By: #### 2 4331-1 #### [facility] CLIA [id number] [address] [place] [address] [place] [facility] CLIA [id number] [address] [place] [address] [place] #### 36156-1 #### [facility] CLIA [id number] [address] [place] [address] [place] RBC (Bld) [#/Vol] 2.75 10*6/uL Low 3.90-5.20 [facility] Comment on above: Order Comment: Speci men Type: BLOOD SPECIMEN Ordering Facility: [facility] Address: [address] [place] [address] Performed By: #### 2 4331-1 #### [facility] CLIA [id number] [address] [place] [address] [place] [facility] CLIA [id number] [address] [place] [address] [place] #### 42661-1 #### [facility] CLIA [id number] [address] [place] [address] [place] WBC (Bld) [#/Vol] 6.26 10*3/uL Normal 3.70-11.00 [facility] Comment on above: Order Comment: Speci men Type: BLOOD SPECIMEN Ordering Facility: [facility] Address: [address] [place] [address] Performed By: #### 2 4331-1 #### [facility] CLIA [id number] [address] [place] [address] [place] [facility] CLIA [id number] [address] [place] [address] [place] #### 45866-6 #### [facility] CLIA [id number] [address] [place] [address] [place] CNOVon 10-31-2024 CNOV Office Visit ([facility] ) BERTA SANCHES ([id number]) 1945 F [place] Date Time Provider Department 10/31/24 11:00 AM SHAYE DOMINGO During your visit today, we recorded the following information about you: Pulse Blood pressure Weight 84/minute 147/68 64.4 kg Shaye Domingo APRN.[facility] 10/31/2024 12:52 PM Signed Chief Complaint Patient presents with: Hospital F/U [facility] Berta Sanches is a 79 year old female who presents here today for Above Complaints.. Acute Mesenteric Ischemia: - Initially admitted to [facility] on 10/02/2024. - Underwent femoral ultrasound-guided angiogram with angioplasty and stenting of the SMA. - Required CRRT for MONIQUE post-op. - Developed AFib with RVR post-op. - Discharged after 23-day hospitalization. Acute on Chronic Heart Failure: - Given IV Lasix during initial admission. - Readmitted to [facility] on 10/15/2024 for acute on chronic [...] regurgitation Pacemaker 10/21/[address] SELAM BARTLETT [id number] pulse generator, his bundle lead, right atrial lead Peripheral arterial disease (HCC) Rheumatic fever Steatosis, liver 03/26/2014 fatty liver on US. 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 Lua PACEMAKER 10/2019 PART. HYSTERECTOMY W/WO RMVL OVARIES/TUBES 1973 h/o cervical cancer ovaries remain PAST SURGICAL HISTORY OF 1996 Aortic valve repair, Dr. Apodaca PAST SURGICAL HISTORY OF 2001 [address] Beltrán, [facility] PAST SURGICAL HISTORY OF 2015 clipping and [...] mcg epi (more content not included)... Normal [facility] Comprehensive metabolic 2000 panelOrdered By: Shala Segura on 10-31-2024 Albumin [Mass/Vol] 4 g/dL 3.9 - 4.9 g/dL [facility] ALP [Catalytic activity/Vol] 81 U/L 34 - 123 U/L [facility] ALT [Catalytic activity/Vol] 10 U/L 7 - 38 U/L [facility] Anion gap [Moles/Vol] 11 mmol/L 8 - 15 mmol/L [facility] AST [Catalytic activity/Vol] 19 U/L 13 - 35 U/L [facility] Bilirubin [Mass/Vol] 1 mg/dL 0.2 - 1 .3 mg/dL [facility] Calcium [Mass/Vol] 9.3 mg/dL 8.5 - 10. 2 mg/dL [facility] Chloride [Moles/Vol] 83 mmol/L Low 98 - 10 7 mmol/L [facility] CO2 [Moles/Vol] 29 mmol/L 22 - 30 mmol/L [facility] Creatinine [Mass/Vol] 2.5 mg/dL High 0.58 - 0.96 mg/dL [facility] GFR/1.73 sq M.predicted among non-blacks MDRD (S/P/Bld) [Vol rate/Area] 19 mL/min/{1.73_m2} Low - PINF [facility] Comment on above: Estimated Glomerular Filtration Rate [...] 138 mg/dL High 74 - 99 mg/dL [facility] Comment on above: The [place] Diabete s Association (ADA) provides guidance for [...] Standards of Medical Care in Diabetes 2016, [place] Diabetes Association. Diabetes Care. 2016.39(Suppl 1). Interpretation and review of laboratory results Abnormal [facility] Potassium [Moles/Vol] 3.8 mmol/L 3.7 - 5.1 mmol/L [facility] Protein [Mass/Vol] 7 g/dL 6.3 - 8.0 g/dL [facility] Sodium [Moles/Vol] 123 mmol/L Low 136 - 144 mmol/L [facility] Urea nitrogen [Mass/Vol] 53 mg/dL High 7 - 21 mg/dL [facility] Comprehensive metabolic 2000 panelon 10-31-2024 Albumin [Mass/Vol] 4.0 g/dL Normal 3.9-4.9 [facility] Comment on above: Order Comment: Speci men Type: BLOOD SPECIMEN Ordering Facility: [facility] Address: [address] [place] [address] Performed By: #### 3 3762-6 #### [facility] CLIA [id number] [address] [place] [address] [place] ALP [Catalytic activity/Vol] 81 U/L Normal 34-123 [facility] Comment on above: Order Comment: Speci men Type: BLOOD SPECIMEN Ordering Facility: [facility] Address: [address] [place] [address] Performed By: #### 3 3762-6 #### [facility] CLIA [id number] [address] [place] [address] [place] ALT [Catalytic activity/Vol] 10 U/L Normal 7-38 [facility] Comment on above: Order Comment: Kunali men Type: BLOOD SPECIMEN Ordering Facility: [facility] Address: [address] [place] [address] Performed By: #### 3 3762-6 #### [facility] CLIA [id number] [address] [place], [place] [address] [place] Anion gap [Moles/Vol] 11 mmol/L Normal 8-15 [facility] Comment on above: Order Comment: Speci men Type: BLOOD SPECIMEN Ordering Facility: [facility] Address: [address] [place] [address] Performed By: #### 3 3762-6 #### [facility] CLIA [id number] [address] [place], [place] [address] [place] AST [Catalytic activity/Vol] 19 U/L Normal 13-35 [facility] Comment on above: Order Comment: Speci men Type: BLOOD SPECIMEN Ordering Facility: [facility] Address: [address] [place] [address] Performed By: #### 3 3762-6 #### [facility] CLIA [id number] [address] [place] [address] [place] Bilirubin [Mass/Vol] 1.0 mg/dL Normal 0.2-1.3 [facility] Comment on above: Order Comment: Speci men Type: BLOOD SPECIMEN Ordering Facility: [facility] Address: [address] [place] [address] Performed By: #### 3 3762-6 #### [facility] CLIA [id number] [address] [place] [address] [place] Calcium [Mass/Vol] 9.3 mg/dL Normal 8.5-10.2 [facility] Comment on above: Order Comment: Speci men Type: BLOOD SPECIMEN Ordering Facility: [facility] Address: [address] [place] [address] Performed By: #### 3 3762-6 #### [facility] CLIA [id number] [address] [place], [place] [address] [place] Chloride [Moles/Vol] 83 mmol/L Low 98-107 [facility] Comment on above: Order Comment: Speci men Type: BLOOD SPECIMEN Ordering Facility: [facility] Address: [address] [place] [address] Performed By: #### 3 3762-6 #### [facility] CLIA [id number] [address] [place] [address] [place] CO2 [Moles/Vol] 29 mmol/L Normal 22-30 [facility] Comment on above: Order Comment: Speci men Type: BLOOD SPECIMEN Ordering Facility: [facility] Address: [address] [place] [address] Performed By: #### 3 3762-6 #### [facility] CLIA [id number] [address] [place] [address] [place] Creatinine [Mass/Vol] 2.50 mg/dL High 0.58-0.96 [facility] Comment on above: Order Comment: Speci men Type: BLOOD SPECIMEN Ordering Facility: [facility] Address: [address] [place] [address] Performed By: #### 3 3762-6 #### [facility] CLIA [id number] [address] [place] [address] [place] Creatinine and Glomerular filtration rate.predicted panel (S/P/Bld) 19 mL/min/1.73m??? Low >=60 [facility] Comment on above: Order Comment: Speci men Type: BLOOD SPECIMEN Ordering Facility: [facility] Address: [address] [place] [address] Result Comment: Mira mated Glomerular Filtration Rate [...] GFR. Performed By: #### 3 3762-6 #### [facility] CLIA [id number] [address] [place] [address] [place] Glucose [Mass/Vol] 138 mg/dL High 74-99 [facility] Comment on above: Order Comment: Annie ricci Type: BLOOD SPECIMEN Ordering Facility: [facility] Address: [address] [place] [address] Result Comment: The [place] Diabetes Association (ADA) provides guidance for cutoff [...] Standards of Medical Care in Diabetes 2016, [place] Diabetes Association. Diabetes Care. 2016.39(Suppl 1). Performed By: #### 3 3762-6 #### [facility] CLIA [id number] [address] [place] [address] [place] Potassium [Moles/Vol] 3.8 mmol/L Normal 3.7-5.1 [facility] Comment on above: Order Comment: Annie ricci Type: BLOOD SPECIMEN Ordering Facility: [facility] Address: [address] [place], [place] [address] Performed By: #### 3 3762-6 #### [facility] CLIA [id number] [address] [place], [place] [address] [place] Protein [Mass/Vol] 7.0 g/dL Normal 6.3-8.0 [facility] Comment on above: Order Comment: Annie ricci Type: BLOOD SPECIMEN Ordering Facility: [facility] Address: [address] [place] [address] Performed By: #### 3 3762-6 #### [facility] CLIA [id number] [address] [place] [address] [place] Sodium [Moles/Vol] 123 mmol/L Low 136-144 [facility] Comment on above: Order Comment: Speci men Type: BLOOD SPECIMEN Ordering Facility: [facility] Address: [address] [place] [address] Performed By: #### 3 3762-6 #### [facility] CLIA [id number] [address] [place] [address] [place] Urea nitrogen [Mass/Vol] 53 mg/dL High 7-21 [facility] Comment on above: Order Comment: Speci men Type: BLOOD SPECIMEN Ordering Facility: [facility] Address: [address] [place] [address] Performed By: #### 3 3762-6 #### [facility] CLIA [id number] [address] [place] [address] [place] MAGNESIUMon 10-31-2024 Magnesium [Mass/Vol] 2 mg/dL 1.7 - 2 .3 mg/dL [facility] Magnesium SerPl-mCncon 10-31 Magnesium [Mass/Vol] 2.0 mg/dL Normal 1.7-2.3 [facility] Comment on above: Order Comment: Speci men Type: BLOOD SPECIMEN Ordering Facility: [facility] Address: [address] [place] [address] Performed By: #### 2 4331-1 #### [facility] CLIA [id number] [address] [place] [address] [place] [facility] CLIA [id number] [address] [place] [address] [place] #### 49035-8 #### [facility] CLIA [id number] [address] [place], [place] [address] [place] Magnesium [Mass/Vol]on 10-31 Interpretation and review of laboratory results Normal [facility] No Panel InformationOrdered By: Shala Segura on 10-31-2024 [facility] Connie 10-12-2024 JASPREETN Telephone ([facility]) BERTA SANCHES ([id number]) 1945 [place] Date Time Provider Department 10/12/24 ALBIN GU [facility] During your visit today, we recorded the following information about you: Albin Gu APRN.CNP 10/12/2024 12:36 PM Signed Patient called to schedule appt in [facility]. Patient also mentions she is currently in [place]. 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 [facility] 07-31-2024 [facility] Telephone ([facility]) VERÓNICABERTA TINEO ([id number]) 1945 F [place] Date Time Provider Department 07/31/24 MELIDA KOO [facility] During your visit today, we recorded the following information about you: Melida Koo APRN.MANAGER REGULATORY 07/31/2024 12:00 PM Signed Pt called to request refill for KDur as she has run out of prescription. She states that she is currently in [place] and will be in [place] until October. [facility] called in [place], [place]. Spoke with Pharmacist on duty. Rx for KDur 10 meq PO daily given verbally #90 with no refills. 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 Normal [facility] 25(OH)D3 [facility] 2024 25-hydroxyvitamin D3 [Mass/Vol] 41.9 ng/mL Normal 31.0-80.0 [facility] Comment on above: Order Comment: Speci men Type: BLOOD SPECIMEN Ordering Facility: [facility] Address: [facility] [place] [address] Result Comment: Clas sification of 25 [place] Vitamin D status: Deficiency/Insufficiency: < or = 30 ng/ml. Sufficiency/Optimal Levels: 31-80 ng/mL Toxicity: > 100 ng/mL. Test performed by chemiluminescent immunoassay. Performed By: #### 2 4331-1 #### [facility] CLIA [id number] [address] [place] [address] [place] [facility] CLIA [id number] [address] [place] [address] [place] #### 82613-5 #### [facility] CLIA [id number] [address] [place] [address] [place] ALBUMIN/CREATININE RATIO, UR INEon 07-07-2024 Albumin DL <= 20 mg/L (U) [Mass/Vol] 21.0 mg/L Normal [facility] Comment on above: Order Comment: Speci men Type: BLOOD SPECIMEN Ordering Facility: [facility] Address: [address] [place] [address] Performed By: #### 2 4331-1 #### [facility] CLIA [id number] [address] [place] [address] [place] [facility] CLIA [id number] [address] [place] [address] [place] #### 37997-9 #### [facility] CLIA [id number] [address] [place] [address] [place] Albumin/Creatinine (U) [Mass ratio] 34 mg/g High <30 [facility] Comment on above: Order Comment: Speci men Type: BLOOD SPECIMEN Ordering Facility: [facility] Address: [address] [place] [address] Result Comment: Adul t Male and Female Nephrotic Criteria: <30 mg/g is considered normal to mildly increased 30-300 mg/g is considered moderately increased >300 mg/g is considered severely increased KDIGO. (2013). KDIGO 2012 Clinical Practice Guideline for the Evaluation and Management of Chronic Kidney Disease. Official Journal of the International Society of Nephrology, 3(1), 1-150. Performed By: #### 2 4331-1 #### [facility] CLIA [id number] [address] [place] [address] [place] [facility] CLIA [id number] [address] [place] [address] [place] #### 72437-7 #### [facility] CLIA [id number] [address] [place] [address] [place] Creatinine (U) [Mass/Vol] 61.6 mg/dL Normal 20.0-300.0 [facility] Comment on above: Order Comment: Speci men Type: BLOOD SPECIMEN Ordering Facility: [facility] Address: [address] [place] [address] Performed By: #### 2 4331-1 #### [facility] CLIA [id number] [address] [place] [address] [place] [id number] [place] [address] [place] #### 08497-7 #### [facility] CLIA [id number] [address] [place] [address] [place] Basic metabolic 2000 panelon 07-07-2024 Anion gap [Moles/Vol] 13 mmol/L Normal 8-15 [facility] Comment on above: Order Comment: Speci men Type: BLOOD SPECIMEN Ordering Facility: [facility] Address: [address] [place] [address] Performed By: #### 3 3762-6 #### [facility] CLIA [id number] [address] [place] [address] [place] Calcium [Mass/Vol] 9.8 mg/dL Normal 8.5-10.2 [facility] Comment on above: Order Comment: Speci men Type: BLOOD SPECIMEN Ordering Facility: [facility] Address: [address] [place] [address] Performed By: #### 3 3762-6 #### [facility] CLIA [id number] [address] [place] [address] [place] Chloride [Moles/Vol] 100 mmol/L Normal 98-107 [facility] Comment on above: Order Comment: Speci men Type: BLOOD SPECIMEN Ordering Facility: [facility] Address: [address] [place] [address] Performed By: #### 3 3762-6 #### [facility] CLIA [id number] [address] [place] [address] [place] CO2 [Moles/Vol] 25 mmol/L Normal 22-30 [facility] Comment on above: Order Comment: Speci men Type: BLOOD SPECIMEN Ordering Facility: [facility] Address: [address] [place] [address] Performed By: #### 3 3762-6 #### [facility] CLIA [id number] [address] [place] [address] [place] Creatinine [Mass/Vol] 1.12 mg/dL High 0.58-0.96 [facility] Comment on above: Order Comment: Speci men Type: BLOOD SPECIMEN Ordering Facility: [facility] Address: [address] [place] [address] Performed By: #### 3 3762-6 #### [facility] CLIA [id number] [address] [place] [address] [place] Creatinine and Glomerular filtration rate.predicted panel (S/P/Bld) 50 mL/min/1.73m??? Low >=60 [facility] Comment on above: Order Comment: Speci men Type: BLOOD SPECIMEN Ordering Facility: [facility] Address: [address] [place] [address] Result Comment: Mira mated Glomerular Filtration Rate [...] GFR. Performed By: #### 3 3762-6 #### [facility] CLIA [id number] [address] [place] [address] [place] Glucose [Mass/Vol] 118 mg/dL High 74-99 [facility] Comment on above: Order Comment: Annie ricci Type: BLOOD SPECIMEN Ordering Facility: [facility] Address: [address] [place] [address] Result Comment: The [place] Diabetes Association (ADA) provides guidance for cutoff [...] Standards of Medical Care in Diabetes 2016, [place] Diabetes Association. Diabetes Care. 2016.39(Suppl 1). Performed By: #### 3 3762-6 #### [facility] CLIA [id number] [address] [place], [place] [address] [place] Potassium [Moles/Vol] 4.4 mmol/L Normal 3.7-5.1 [facility] Comment on above: Order Comment: Annie ricci Type: BLOOD SPECIMEN Ordering Facility: [facility] Address: [address] [place] [address] Performed By: #### 3 3762-6 #### [facility] CLIA [id number] [address] [place], [place] [address] [place] Sodium [Moles/Vol] 138 mmol/L Normal 136-144 [facility] Comment on above: Order Comment: Speci men Type: BLOOD SPECIMEN Ordering Facility: [facility] Address: [address] [place] [address] Performed By: #### 3 3762-6 #### [facility] CLIA [id number] [address] [place] [address] [place] Urea nitrogen [Mass/Vol] 34 mg/dL High 7-21 [facility] Comment on above: Order Comment: Speci men Type: BLOOD SPECIMEN Ordering Facility: [facility] Address: [address] [place] [address] Performed By: #### 3 3762-6 #### [facility] CLIA [id number] [address] [place] [address] OF [facility] CNOVon 07-07-2024 CNOV Office Visit (LAURE[facility] ) BERTA SANCHES ([id number]) 1945 [facility] Date Time Provider Department 07/07/24 8:00 AM EDYSI COLLAZO During your visit today, we recorded the following information about you: Pulse Respiration Blood pressure Weight 69/minute 16/minute 136/70 63.5 kg Deysi Collazo APRN.MANAGER REGULATORY 07/07/2024 12:41 PM Signed This is a 78 year old female who presents today with: Patient presents with: Establish Care HISTORY OF PRESENT ILLNESS: Berta Sanches is a 78 year old female. Patient presents with: Establish Care Pt presents today to [facility]. HTN: Patient is compliant with [...] regurgitation Pacemaker 10/21/[address] SELAM BARTLETT [id number] pulse generator, his bundle lead, right atrial lead Peripheral arterial disease (HCC) Rheumatic fever Steatosis, liver 03/26/2014 fatty liver on US. 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 Lua PACEMAKER 10/2019 PART. HYSTERECTOMY W/WO RMVL OVARIES/TUBES 1974 h/o cervical cancer ovaries remain PAST SURGICAL HISTORY OF 1996 Aortic valve repair, Dr. Apodaca PAST SURGICAL HISTORY OF 2001 [address] Beltrán, [facility] PAST SURGICAL HISTORY OF 2015 clipping and [...] once daily. (more content not included)... Normal [facility] HbA1c (Bld)on 07-07-2024 Average glucose Estimated from glycated hemoglobin (Bld) [Mass/Vol] 151 mg/dL Normal [facility] Comment on above: Order Comment: Speci men Type: BLOOD SPECIMEN Ordering Facility: [facility] Address: [address] [place] [address] Result Comment: eAG: (Estimated average glucose) is a calculated value from HgbA1c and is retail representative of the average blood glucose level in the last 2-3 month period. Performed By: #### 3 3762-6 #### [facility] CLIA [id number] [address] [place] [address] [place] HbA1c (Bld) [Mass fraction] 6.9 % High 4.3-5.6 [facility] Comment on above: Order Comment: Annie ricci Type: BLOOD SPECIMEN Ordering Facility: [facility] Address: [address] [place] [address] Result Comment: [place] Diabetes Association guidelines indicate that patients with HgbA1c in the range 5.7-6.4% are at increased risk for development of diabetes, and intervention by lifestyle modification may be beneficial. HgbA1c greater or equal to 6.5% is considered diagnostic of diabetes. Performed By: #### 3 3762-6 #### [facility] CLIA [id number] [address] [place] [address] [place] TSH SerPl-aCncon 07-07-2024 TSH Qn 2.650 m[IU]/L Normal 0.270-4.200 [facility] Comment on above: Order Comment: Annie ricci Type: BLOOD SPECIMEN Ordering Facility: [facility] Address: [address] [place] [address] Performed By: #### 3 3762-6 #### [facility] CLIA [id number] [address] [place] [address] [place] CNOVon 04-07-2024 CNOV Office Visit ([facility] ) BERTA SANCHES ([id number]) 1945 F [place] Date Time Provider Department 04/07/24 9:00 AM ALBIN GU [facility] During your visit today, we recorded the following information about you: Pulse Blood pressure Weight 91/minute 142/47 62.1 kg Albin Gu APRN.MANAGER REGULATORY 04/07/2024 9:57 AM Signed [facility] [place] [facility] OUTPATIENT VISIT DATE April [...] moderate car (more content not included)... Normal [facility] Urgent Care Visit Reporton 0 02-28-2024 Urgent Care Visit Report [facility] [address], [address] [place] [address] OFFICE VISIT Date of Service: 02/28/24 MR#: [id number] Acct: [id number] Name: BERTA SANCHES Rep #: [id number] : 1945 Provider: FERNANDO Washington Age/Sex: 78/F Location: [facility] Status: Signed Intake Vital Signs 04/07/23 15:21 [...] Complaint: LT WRIST INJURY/ LACERATION/ DOG SCRATCH Regroover Required: No Accompanied by: Is patient in [...] you fallen in the past year?: No PFSH Medical History (Updated 02/28/24 @ 16:38 by [...] infection and is requesting an antibiotic. No szoh-fpv-flgbzhz products taken to assist. No other associated [...] Assessment and (more content not included)... [facility] Tele[facility] ([facility]) BERTA SANCHES ([id number]) 1945 F [facility] Date Time Provider Department 02/21/24 MELIDA KOO [facility] During your visit today, we recorded the [...] due t (more content not included)... Normal [facility] NT-proBNP [facility] 02-14 Natriuretic peptide.B prohormone N-Terminal [Mass/Vol] 5922 pg/mL High <450 [facility] Comment on above: Order Comment: Speci men Type: BLOOD SPECIMEN Ordering Facility: [facility] Address: [address] [place] [address] Performed By: #### 3 3762-6 #### [facility] CLIA [id number] [address] [place] [address] [place] [facility]antelle [facility]-07-2024 [facility] BERTA SANCHES ([id number]) 1945 F [facility] Date Time Provider Department 02/07/24 MELIDA KOO [facility] During your visit today, we recorded the following information about you: Melida Koo APRN.MANAGER REGULATORY 02/07/2024 8:28 AM Signed Pt called and left message on voicemail stating that she was feeling much better since following instructions that Albin Gu had given her. She reported that SOB and edema was improved. She has concerns about NTpBNP and when she should have that rechecked. Called patient and she did not answer. Message left for call back. 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 [facility] 02-04-2024 CNPN Telephone ([facility]) BERTA SANCHES ([id number]) 1945 [facility] Date Time Provider Department 02/04/24 MARIBELL KING During your visit today, we recorded the following information about you: Ying Fuentes LPN 02/04/2024 2:12 PM Signed ----- Message from Maribell King APRN.MANAGER REGULATORY sent at 02/04/2024 2:02 PM EDT ----- Please call the patient and report lab results revealed stable kidney function, normal potassium level, normal liver function, cholesterol is under good control, and elevated BNP. Maribell King APRN.[employer] [place] LPN 02/04/2024 2:16 PM Signed I spoke to and informed them of Maribell's response to lab results and recommendations. Patient voiced understanding. Patient states BNP is elevated from 2 months ago. Patient asking if she should make any changes. Patient c/o weight gain and SOB with activity. GOPI James Nichole L, APRN.JASPREET 02/07/2024 12:49 PM Addendum Patient should double Lasix to 40 mg BID for 3 days, then recheck BMP that has been ordered per PCP. Please ask patient to monitor daily weights. 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 Normal [facility] Comprehensive metabolic 2000 panelon 02-03-2024 Albumin [Mass/Vol] 4.0 g/dL Normal 3.9-4.9 [facility] Comment on above: Order Comment: Speci men Type: BLOOD SPECIMEN Ordering Facility: [facility] Address: [address] [place] [address] Performed By: #### 3 3762-6 #### [facility] CLIA [id number] [address] [place] [address] [place] ALP [Catalytic activity/Vol] 102 U/L Normal 34-123 [facility] Comment on above: Order Comment: Speci men Type: BLOOD SPECIMEN Ordering Facility: [facility] Address: [address] [place] [address] Performed By: #### 3 3762-6 #### [facility] CLIA [id number] [address] [place] [address] [place] ALT [Catalytic activity/Vol] 10 U/L Normal 7-38 [facility] Comment on above: Order Comment: Speci men Type: BLOOD SPECIMEN Ordering Facility: [facility] Address: [address] [place] [address] Performed By: #### 3 3762-6 #### [facility] CLIA [id number] [address] [place] [address] [place] Anion gap [Moles/Vol] 11 mmol/L Normal 8-15 [facility] Comment on above: Order Comment: Speci men Type: BLOOD SPECIMEN Ordering Facility: [facility] Address: [address] [place] [address] Performed By: #### 3 3762-6 #### [facility] CLIA [id number] [address] [place], [place] [address] [place] AST [Catalytic activity/Vol] 16 U/L Normal 13-35 [facility] Comment on above: Order Comment: Speci men Type: BLOOD SPECIMEN Ordering Facility: [facility] Address: [address] [place], [place] [address] Performed By: #### 3 3762-6 #### [facility] CLIA [id number] [address] [place], [place] [address] [place] Bilirubin [Mass/Vol] 1.1 mg/dL Normal 0.2-1.3 [facility] Comment on above: Order Comment: Speci men Type: BLOOD SPECIMEN Ordering Facility: [facility] Address: [address] [place] [address] Performed By: #### 3 3762-6 #### [facility] CLIA [id number] [address] [place], [place] [address] [place] Calcium [Mass/Vol] 9.5 mg/dL Normal 8.5-10.2 [facility] Comment on above: Order Comment: Speci men Type: BLOOD SPECIMEN Ordering Facility: [facility] Address: [address] [place], [place] [address] Performed By: #### 3 3762-6 #### [facility] CLIA [id number] [address] [place], [place] [address] [place] Chloride [Moles/Vol] 98 mmol/L Normal 98-107 [facility] Comment on above: Order Comment: Speci men Type: BLOOD SPECIMEN Ordering Facility: [facility] Address: [address] [place], [place] [address] Performed By: #### 3 3762-6 #### [facility] CLIA [id number] [address] [place], [place] [address] [place] CO2 [Moles/Vol] 22 mmol/L Normal 22-30 [facility] Comment on above: Order Comment: Speci men Type: BLOOD SPECIMEN Ordering Facility: [facility] Address: [address] [place] [address] Performed By: #### 3 3762-6 #### [facility] CLIA [id number] [address] [place] [address] [place] Creatinine [Mass/Vol] 1.28 mg/dL High 0.58-0.96 [facility] Comment on above: Order Comment: Speci men Type: BLOOD SPECIMEN Ordering Facility: [facility] Address: [address] [place] [address] Performed By: #### 3 3762-6 #### [facility] CLIA [id number] [address] [place] [address] [place] Creatinine and Glomerular filtration rate.predicted panel (S/P/Bld) 43 mL/min/1.73m??? Low >=60 [facility] Comment on above: Order Comment: Speci men Type: BLOOD SPECIMEN Ordering Facility: [facility] Address: [address] [place] [address] Result Comment: Mira mated Glomerular Filtration Rate [...] GFR. Performed By: #### 3 3762-6 #### [facility] CLIA [id number] [address] [place], [place] [address] [place] Glucose [Mass/Vol] 147 mg/dL High 74-99 [facility] Comment on above: Order Comment: Speci men Type: BLOOD SPECIMEN Ordering Facility: [facility] Address: [address] [place] [address] Result Comment: The [place] Diabetes Association (ADA) provides guidance for cutoff [...] Standards of Medical Care in Diabetes 2016, [place] [employer]. Diabetes Care. 2016.39(Suppl 1). Performed By: #### 3 3762-6 #### [facility] CLIA [id number] [address] [place] [address] [place] Potassium [Moles/Vol] 4.8 mmol/L Normal 3.7-5.1 [facility] Comment on above: Order Comment: Speci men Type: BLOOD SPECIMEN Ordering Facility: [facility] Address: [address] [place] [address] Performed By: #### 3 3762-6 #### [facility] CLIA [id number] [address] [place] [address] [place] Protein [Mass/Vol] 7.2 g/dL Normal 6.3-8.0 [facility] Comment on above: Order Comment: Speci men Type: BLOOD SPECIMEN Ordering Facility: [facility] Address: [address] [place] [address] Performed By: #### 3 3762-6 #### [facility] CLIA [id number] [address] [place] [address] [place] Sodium [Moles/Vol] 131 mmol/L Low 136-144 [facility] Comment on above: Order Comment: Speci men Type: BLOOD SPECIMEN Ordering Facility: [facility] Address: [address] [place] [address] Performed By: #### 3 3762-6 #### [facility] CLIA [id number] [address] [place] [address] [place] Urea nitrogen [Mass/Vol] 34 mg/dL High 7-21 [facility] Comment on above: Order Comment: Speci men Type: BLOOD SPECIMEN Ordering Facility: [facility] Address: [address] [place] [address] Performed By: #### 3 3762-6 #### [facility] CLIA [id number] [address] [place] [address] [place] Lipid 1996 panelon 4 Cholesterol [Mass/Vol] 98 mg/dL Normal <200 [facility] Comment on above: Order Comment: Speci men Type: BLOOD SPECIMEN Ordering Facility: [facility] Address: [address] [place] [address] Result Comment: <200 mg/dL, Desirable 200-239 mg/dL, Borderline high >239 mg/dL, High Performed By: #### 2 4331-1 #### [facility] CLIA [id number] [address] [place] [address] [place] [facility] CLIA [id number] [address] [place] [address] [place] #### 21649-4 #### [facility] CLIA [id number] [address] [place] [address] [place] Cholesterol in HDL [Mass/Vol] 34 mg/dL Low >39 [facility] Comment on above: Order Comment: Speci men Type: BLOOD SPECIMEN Ordering Facility: [facility] Address: [address] [place] [address] Result Comment: 40-5 9 mg/dL, Acceptable >59 mg/dL, High: Negative risk factor for coronary heart disease <40 mg/dL, Low: Positive risk factor for coronary heart disease Performed By: #### 2 4331-1 #### [facility] CLIA [id number] [address] [place] [address] [place] [facility] CLIA [id number] [address] [place] [address] [place] #### 22884-6 #### [facility] CLIA [id number] [address] [place] [address] Cholesterol in LDL [Mass/Vol] 51 mg/dL Normal <100 [facility] Comment on above: Order Comment: Speci men Type: BLOOD SPECIMEN Ordering Facility: [facility] Address: [address] [place] [address] Result Comment: <100 mg/dL, Optimal 100-129 mg/dL, Near optimal/above optimal 130-159 mg/dL, Borderline high 160-189 mg/dL, High >189 mg/dL, Very high Secondary prevention optimal LDL Cholesterol levels are recommended to be < 70 mg/dL Performed By: #### 2 4331-1 #### [facility] CLIA [id number] [address] [place] [address] [place] [facility] CLIA [id number] [address] [place] [address] [place] #### 05516-3 #### [facility] CLIA [id number] [address] [place] [address] [place] Cholesterol in LDL/Cholesterol in HDL [Mass ratio] 1.50 {ratio} Normal <2.54 [facility] Comment on above: Order Comment: Speci men Type: BLOOD SPECIMEN Ordering Facility: [facility] Address: [address] [place] [address] Result Comment: Refe rence: 1. National Cholesterol Education Program ATP III Guideline At-A-Glance Quick Desk Reference: National Heart, Lung, and Blood [place]. National Institutes of Health. 2001: NIH Publication No. 01-3305. 2. An International Atherosclerosis Society position paper: global recommendations for the management of dyslipidemia: executive summary, Atherosclerosis. 2014: 232(2):410-413. Performed By: #### 2 4331-1 #### [facility] CLIA [id number] [address] [address] [place] [facility] CLIA [id number] [address] [place] [address] [place] #### 68638-4 #### [facility] CLIA [id number] [address] [address] [place] Cholesterol in VLDL [Mass/Vol] 13 mg/dL Normal <30 [facility] Comment on above: Order Comment: Speci men Type: BLOOD SPECIMEN Ordering Facility: [facility] Address: [address] [place] [address] Performed By: #### 2 4331-1 #### [facility] CLIA [id number] [address] [place] [address] [place] [facility] CLIA [id number] [address] [place] [address] [place] #### 11727-2 #### [facility] CLIA [id number] [address] [place] [address] [place] Cholesterol non HDL [Mass/Vol] 64 mg/dL Normal <130 [facility] Comment on above: Order Comment: Speci men Type: BLOOD SPECIMEN Ordering Facility: [facility] Address: [facility] [place] [id number] Result Comment: <130 mg/dL, Optimal 130-159 mg/dL, Near optimal/above optimal 160-189 mg/dL, Borderline high 190-219 mg/dL, High >219 mg/dL, Very high Secondary prevention optimal non HDL Cholesterol levels are recommended to be <100 mg/dL Performed By: #### 2 4331-1 #### [facility] CLIA [id number] [address] [place], [place] [address] [place] [facility] CLIA [id number] [address] [place] [address] [place] #### 26863-9 #### [facility] CLIA [id number] [address] [place] [address] [place] Cholesterol.total/Gin sterol in HDL [Mass ratio] 2.88 {ratio} Normal <5.10 [facility] Comment on above: Order Comment: Speci men Type: BLOOD SPECIMEN Ordering Facility: [facility] Address: [address] [place] [address] Performed By: #### 2 4331-1 #### [facility] CLIA [id number] [address] [place] [address] [place] [facility] CLIA [id number] [place] [address] [place] #### 31670-7 #### [facility] CLIA [id number] [address] [place] [address] [place] FASTING TIME 12 hrs Normal [facility] Comment on above: Order Comment: Speci men Type: BLOOD SPECIMEN Ordering Facility: [facility] Address: [address] [place] [id number] Performed By: #### 2 4331-1 #### [facility] CLIA [id number] [address] [place] [address] [place] [facility] [id number] [address] [place] [address] [place] #### 39529-6 #### [facility] CLIA [id number] [address] [place] [address] [place] Triglyceride [Mass/Vol] 67 mg/dL Normal <150 [facility] Comment on above: Order Comment: Speci men Type: BLOOD SPECIMEN Ordering Facility: [facility] Address: [address] [place] [id number] Result Comment: <150 mg/dL, Normal 150-199 mg/dL, Borderline high 200-499 mg/dL, High >499 mg/dL, Very high Performed By: #### 2 4331-1 #### [facility] CLIA [id number] [address] [place] [address] [place] [facility] CLIA [id number] [address] [place] [address] [place] #### 86347-2 #### [facility] CLIA [id number] [address] [place] [address] [place] NT-proBNP SerPl-mCncon 02-02 Natriuretic peptide.B prohormone N-Terminal [Mass/Vol] 8577 pg/mL High <450 [facility] Comment on above: Order Comment: Speci men Type: BLOOD SPECIMEN Ordering Facility: [facility] Address: [address] [place] [address] Performed By: #### 2 4331-1 #### [facility] CLIA [id number] [address] [place] [address] [place] [facility] CLIA [id number] [address] [place] [address] [place] #### 91924-9 #### [facility] CLIA [id number] [address] [place] [address] [place] Phosphate SerPl-mCncon 02-02 Phosphate [Mass/Vol] 3.3 mg/dL Normal 2.7-4.8 [facility] Comment on above: Order Comment: Speci men Type: BLOOD SPECIMEN Ordering Facility: [facility] Address: [address] [place] [address] Performed By: #### 3 3762-6 #### [facility] CLIA [id number] [address] [place] [address] [place] CNOVon 01-17-2024 CNOV Office Visit (CAWSTR ) BERTA SANCHES ([id number]) 1945 F [place] Date Time Provider Department 01/17/24 9:20 AM CARLA BURDICK During your visit today, we recorded the following information about you: Pulse Blood pressure Weight Height 64/minute 157/59 66.8 kg 1.575 m Carla Burdick MD 01/17/2024 10:36 AM [facility] SECTION OF REGIONAL CARDIOLOGY Cardiology ([facility]) [address] [facility] [id number] OUTPATIENT VISIT DATE 01/17/2024 PRIMARY CARE PHYSICIAN: Doreen Le [address] [place] [address] HISTORY OF PRESENT ILLNESS: Ms. Sanches is [...] regurgitation Pacemaker 10/21/[address] SELAM BARTLETT [id number] pulse generator, his bundle lead, right atrial lead Peripheral arterial disease (HCC) Rheumatic fever Steatosis, liver 03/26/2014 fatty liver on US. 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 Lua PACEMAKER 10/2019 PART. HYSTERECTOMY W/WO RMVL OVARIES/TUBES 1973 h/o cervical cancer ovaries remain PAST SURGICAL HISTORY OF 1996 Aortic valve repair, Dr. Apodaca PAST SURGICAL HISTORY OF 2001 [address] Beltrán, [facility] PAST SURGICAL HISTORY OF 2015 clipping and [...] shortly af (more content not included)... Normal [facility] [place] 11-08-2023 [facility] HNO ID: [id number] Author: SONY LUIS RT(R) Service: Radiology Author Type: Technologist Type: [...] PATIENT PRESENTS WITH AN IMPLANTABLE OR ATTACHED TIP CUTTER: No RADIOLOGY DEPARTMENT: General X-ray: Exam(s) Completed: Chest X-Ray PERIPHERAL IV DATA: Not applicable SIGNED BY: RT Risa(R) November 08, 2023 6:37 PM [facility] ED PROV NOTEon 11-08-2023 ED PROV NOTE HNO ID: [id number] Author: SHUBHAM CHAUDHRY MD Service: ? Author Type: Physician Type: ED Provider Notes Filed: 11/08/2023 20:32 Note Text: Left after being seen in triage. Called patient and recommended she come back due to her presenting sxs. States she will come back. SIGNATURE: Shubham Chaudhry MD PATIENT NAME: Berta Sanches DATE: November 08, 2023 TIME: 8:31 PM PAGER/CONTACT #: SHUBHAM CHAUDHRY 11/08/232031 [facility] ED Triage Noteon 11-08-2023 ED Triage Note HNO ID: [id number] Author: SHUBHAM CHAUDHRY MD Service: ? 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 Abnormal ECG No Stemi 1746 Confirmed by MD CHAUDHRY BLAIN ([id number]), photo editor BRYON MIJARES ([id number]) on 11/08/2023 10:31:52 PM NAME : BERTA SANCHES PID : [id number] : 1945 Gender : Female Race : ORD : Procedure Date : Nov 08 2023 17:44:03 Edit Date : Nov 08 2023 22:31:54 Diagnosis: Sinus tachycardia 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 No confluent alveolar opacity. Supervisory Forester: PSCMike Transcribe Date/Time: Nov 08 2023 7:38P Dictated by : LIZZIE LARA MD This examination was interpreted and the report reviewed and electronically signed by: LIZZIE LARA MD on Nov 08 2023 7:44PM EST [id number] Normal [facility] US Lower extremity veins - b ilateralon 10-20-2023 Non-Invasive Vascular Laboratory [facility] Lower Extremity Venous Duplex Bilateral/Complete Date of service/time: 10/19/2023 3:27:13 PM Name: MRS. BERAT SANCHES Date of : 1945 Age: 78 [...] below for Image [facility] ECG COMPLETEon 10-19-2023 Atrial Rate 125 BPM [facility] Calculated R [place] -40 degrees [facility] Calculated T [place] -34 degrees [facility] QRS Duration 106 ms [facility] QT Interval 410 ms [facility] QTC Calculation (Bazett) 490 ms [facility] Ventricular Rate 86 BPM [facility] Chest PA and Lateralon IMPRESSION: No acute radiographic abnormality. Cardiomegaly Supervisory Forester: JAMES Transcribe Date/Time: Oct 18 2023 4:16P Dictated by : MICHAELLE BAHENA MD This examination was interpreted and the report reviewed and electronically signed by: MICHAELLE BAHENA MD on Oct 18 2023 4:18PM [facility] DIVISION OF RADIOLOGY * * *Final Report* [...] soft tissues: Unremarkable. DIVISION OF RADIOLOGY Provider, [facility] - 10/18/2023 * * *Final Report* * [...] IMPRESSION IMPRESSION: No acute radiographic abnormality. Cardiomegaly Supervisory Forester: JAMES Transcribe Date/Time: Oct 18 2023 4:16P Dictated by : MICHAELLE BAHENA MD This examination was interpreted and the report reviewed and electronically signed by: MICHAELLE BAHENA MD on Oct 18 2023 4:18PM [facility] Radiology Study observation (narrative) Chris molina [facility] XR Chest PA and LateralOrder ed By: Ccf Provider on 10-18-2023 [facility] No Panel Informationon 10-15 BLANK _ [facility] Implant Date 10/21/2020 [facility] PACEMAKER REMOTE CHECKon AV Delay Adaptive Paced Minimum (ms) 180 ms [facility] AV Delay Adaptive Sensed Minimum (ms) 150 ms [facility] AV Delay Adaptive Status DISABLED [facility] Battery Voltage (volts) 3.02 V C [facility] Pavan RA Pacing Amplitude (volts) 1.5 V [facility] Pavan RA Pacing Polarity BI [facility] Pavan RA Pacing Pulse Width (ms) 0.4 ms [facility] Pavan RA Sensing Amplitude (mvolts) 0.3 mV [facility] Pavan RA Sensing Blanking Period (ms) 150 ms [facility] Pavan RA Sensing Polarity BI [facility] Pavan RA Sensing Refractory Period (ms) Auto [facility] Pavan RV Pacing Amplitude (volts) 2 V [facility] Pavan RV Pacing Polarity BI [facility] Pavan RV Pacing Pulse Width (ms) 0.4 ms [facility] Pavan RV Sensing Amplitude (mvolts) 0.9 mV [facility] Pavan RV Sensing Blanking Period (ms) 200 ms [facility] Pavan RV Sensing Polarity BI [facility] Hysteresis Rate (bpm) DISABLED [facility] Lead1 Mfg MDT [facility] Lead2 Mfg MDT [facility] Location RV [facility] Location RA [facility] Lower Rate (bpm) 60 {beats}/min [facility] Max Sensor Rate (bmp) 120 {beats}/min [facility] Model [id number] Ambia XT DR MRI Cl [facility] Model 3830 SelectSecure MR I SureScan [facility] Model 5076 CapSureFix Novus [facility] PM-Device Mfg MDT [facility] PM-Percent Pacing (A) 7.59 % [facility] PM-Percent Pacing (V) 18.89 % [facility] PM-PMT Intervention ENABLED [facility] PM-PVC Intervention ENABLED [facility] PM-Rate Modulation Acceleration Reaction 30 s [facility] PM-Rate Modulation ADL Rate (bpm) 95 {beats}/min [facility] PM-Rate Modulation Deceleration Exercise [facility] PM-Rate Modulation [place] 3 [facility] PM-Rate Modulation Threshold Low [facility] RA Bipolar Impedance ohms 513 ohm [facility] RA Unipolar Impedance ohms 304 ohm [facility] RV Bipolar Impedance ohms 456 ohm [facility] RV Unipolar Impedance 342 ohm [facility] Serial Number [id number] [facility] Serial Number [id number] [facility] Serial Number [id number] [facility] Thresh RA Capture Amplitude (volts) 0.75 V [facility] Thresh RA Capture Duration (ms) 0.4 ms [facility] Thresh RA Sensing Amplitude (mvolts) 0.5 mV [facility] Thresh RV Capture Amplitude (volts) 1 V [facility] Thresh RV Capture Duration (ms) 0.4 ms [facility] Thresh RV Sensing Amplitude (mvolts) 12.5 mV [facility] Tracking Rate (bpm) 120 {beats}/min [facility] INFLUENZA A&B MOLECULAR (POC )on 07-05-2023 Flu A (POCT) Negative Negative [facility] Flu B (POCT) Negative Negative [facility] Procedural Control Valid [facility] XR Foot - right AP and Later al and obliqueon 06-03-2023 IMPRESSION: 1. Nondisplaced fracture of the base of the right fifth metatarsal 2. Right first metatarsophalangeal joint space narrowing and periarticular erosions, which can be seen with gout Supervisory Forester: JAMES Transcribe Date/Time: Jun 03 2023 4:34P Dictated by : JUDSON JACINTO MD This examination was interpreted and the report reviewed and electronically signed by: JUDSON JACINTO MD on Jun 03 2023 4:36PM [facility] DIVISION OF RADIOLOGY * * *Final Report* [...] soft tissue swelling. DIVISION OF RADIOLOGY Provider, [place] [facility] - 06/03/2023 * * *Final Report* * [...] erosions, which can be seen with gout Supervisory Forester: JAMES Transcribe Date/Time: Jun 03 2023 4:34P Dictated by : JUDSON JACINTO MD This examination was interpreted and the report reviewed and electronically signed by: JUDSON JACINTO MD on Jun 03 2023 4:36PM EST [facility] XR Foot - right AP and Later al and obliqueOrdered By: Ccf Provider on 06-03-2023 [facility] XR Foot - right AP and Later al and obliqueon 06-01-2023 Radiology Study observation (narrative) [facility] CT CHEST WO IVCONon 04-30-20 [facility] XR Finger - right AP and Lat eral and obliqueon 04-15-2023 IMPRESSION: No acute osseous abnormality Supervisory Forester: JAMES Transcribe Date/Time: Apr 15 2023 11:58A Dictated by : JUDSON JACINTO MD This examination was interpreted and the report reviewed and electronically signed by: JUDSON JACINTO MD on Apr 15 2023 11:59AM [facility] DIVISION OF RADIOLOGY * * *Final Report* [...] No periarticular erosions. DIVISION OF RADIOLOGY Provider, [facility] - 04/15/2023 * * *Final Report* * [...] erosions. IMPRESSION IMPRESSION: No acute osseous abnormality Supervisory Forester: PSCB Transcribe Date/Time: Apr 15 2023 11:58A Dictated by : JUDSON JACINTO MD This examination was interpreted and the report reviewed and electronically signed by: JUDSON JACINTO MD on Apr 15 2023 11:59AM EST [facility] XR Finger - right AP and Lat eral and obliqueOrdered By: Ccf Provider on 04-15-2023 [facility] XR Finger - right AP and Lat eral and obliqueon 04-12-2023 Radiology Study observation (narrative) [facility] No Panel Informationon 03-28 BLANK _ [facility] Implant Date 10/21/2020 [facility] PACEMAKER REMOTE CHECKon AV Delay Adaptive Paced Minimum (ms) 180 ms [facility] AV Delay Adaptive Sensed Minimum (ms) 150 ms [facility] AV Delay Adaptive Status DISABLED [facility] Battery Voltage (volts) 3.02 V [facility] Pavan RA Pacing Amplitude (volts) 1.5 V [facility] Pavan RA Pacing Polarity BI [facility] Pavan RA Pacing Pulse Width (ms) 0.4 ms [facility] Pavan RA Sensing Amplitude (mvolts) 0.3 mV [facility] Pavan RA Sensing Blanking Period (ms) 150 ms [facility] Pavan RA Sensing Polarity BI [facility] Pavan RA Sensing Refractory Period (ms) Auto [facility] Pavan RV Pacing Amplitude (volts) 2 V [facility] Pavan RV Pacing Polarity BI [facility] Pavan RV Pacing Pulse Width (ms) 0.4 ms [facility] Pavan RV Sensing Amplitude (mvolts) 0.9 mV [facility] Pavan RV Sensing Blanking Period (ms) 200 ms [facility] Pavan RV Sensing Polarity BI [facility] Hysteresis Rate (bpm) DISABLED [facility] Lead1 Mfg MDT [facility] Lead2 Mfg MDT [facility] Location RV [facility] Location RA [facility] Lower Rate (bpm) 60 {beats}/min [facility] Max Sensor Rate (bmp) 120 {beats}/min [facility] Model [id number] Sania XT DR MRI Cl [facility] Model 3830 SelectSecure MR I SureScan [facility] Model 5076 CapSureFix [employer] [facility] PM-Device Mfg MDT [facility] PM-Percent Pacing (A) 96.66 % [facility] PM-Percent Pacing (V) 1.41 % [facility] PM-PMT Intervention ENABLED [facility] PM-PVC Intervention ENABLED [facility] PM-Rate Modulation Acceleration Reaction 30 s [facility] PM-Rate Modulation ADL Rate (bpm) 95 {beats}/min [facility] PM-Rate Modulation Deceleration Exercise [facility] PM-Rate Modulation [place] 3 [facility] PM-Rate Modulation Threshold Low [facility] RA Bipolar Impedance ohms 475 ohm [facility] RA Unipolar Impedance ohms 304 ohm [facility] RV Bipolar Impedance ohms 437 ohm [facility] RV Unipolar Impedance 342 ohm [facility] Serial Number [id number] [facility] Serial Number [id number] [facility] Serial Number [id number] [facility] Thresh RA Capture Amplitude (volts) 0.75 V [facility] Thresh RA Capture Duration (ms) 0.4 ms [facility] Thresh RA Sensing Amplitude (mvolts) 0.75 mV [facility] Thresh RV Capture Amplitude (volts) 1 V [facility] Thresh RV Capture Duration (ms) 0.4 ms [facility] Thresh RV Sensing Amplitude (mvolts) 12.375 mV [facility] Tracking Rate (bpm) 120 {beats}/min [facility] No Panel Informationon 12-29 BLANK _ [facility] Implant Date 10/21/2020 [facility] PACEMAKER REMOTE CHECKon AV Delay Adaptive Paced Minimum (ms) 180 ms [facility] AV Delay Adaptive Sensed Minimum (ms) 150 ms [facility] AV Delay Adaptive Status DISABLED [facility] Battery Voltage (volts) 3.02 V C [facility] Pavan RA Pacing Amplitude (volts) 1.5 V [facility] Pavan RA Pacing Polarity BI [facility] Pavan RA Pacing Pulse Width (ms) 0.4 ms [facility] Pavan RA Sensing Amplitude (mvolts) 0.3 mV [facility] Pavan RA Sensing Blanking Period (ms) 150 ms [facility] Pavan RA Sensing Polarity BI [facility] Pavan RA Sensing Refractory Period (ms) Auto [facility] Pavan RV Pacing Amplitude (volts) 2 V [facility] Pavan RV Pacing Polarity BI [facility] Pavan RV Pacing Pulse Width (ms) 0.4 ms [facility] Pavan RV Sensing Amplitude (mvolts) 0.9 mV [facility] Pavan RV Sensing Blanking Period (ms) 200 ms [facility] Pavan RV Sensing Polarity BI [facility] Hysteresis Rate (bpm) DISABLED [facility] Lead1 Mfg MDT [facility] Lead2 Mfg MDT [facility] Location RV [facility] Location RA [facility] Lower Rate (bpm) 60 {beats}/min [facility] Max Sensor Rate (bmp) 120 {beats}/min [facility] Model [id number] Ambia XT DR MRI Cl [facility] Model 3830 SelectSecure MR I SureScan [facility] Model 5076 CapSureFix [facility] PM-Device Mfg MDT [facility] PM-Percent Pacing (A) 79.14 % [facility] PM-Percent Pacing (V) 5.48 % [facility] PM-PMT Intervention ENABLED [facility] PM-PVC Intervention ENABLED [facility] PM-Rate Modulation Acceleration Reaction 30 s [facility] PM-Rate Modulation ADL Rate (bpm) 95 {beats}/min [facility] PM-Rate Modulation Deceleration Exercise [facility] PM-Rate Modulation [place] 3 [facility] PM-Rate Modulation Threshold Low [facility] RA Bipolar Impedance ohms 437 ohm [facility] RA Unipolar Impedance ohms 304 ohm [facility] RV Bipolar Impedance ohms 437 ohm [facility] RV Unipolar Impedance 342 ohm [facility] Serial Number [id number] [facility] Serial Number [id number] [facility] Serial Number [id number] [facility] Thresh RA Capture Amplitude (volts) 0.625 V [facility] Thresh RA Capture Duration (ms) 0.4 ms [facility] Thresh RA Sensing Amplitude (mvolts) 0.875 mV [facility] Thresh RV Capture Amplitude (volts) 1 V [facility] Thresh RV Capture Duration (ms) 0.4 ms [facility] Thresh RV Sensing Amplitude (mvolts) 10.75 mV [facility] Tracking Rate (bpm) 120 {beats}/min [facility] MRA BRAIN WO/W IVCONon 12-10 MRA BRAIN WO/W IVCON * * *Final Report* * * DATE OF EXAM: Dec 10 2022 1:14PM [facility] 0273 - MRA BRAIN WO/W IVCON / PROCEDURE REASON: multiple diagnoses * * * * Physician Interpretation * * * * EXAMINATION: MRA BRAIN WO/W IVCON CLINICAL HISTORY: Nonruptured acom aneurysm follow-up. TECHNIQUE: Short TR short TE SPGR through the craig of [place] after contrast. Intracranial 3D [id number] MRA with post-processing performed at the modality [...] aneurysm coiling. No additional intracranial aneurysms identified. Supervisory Forester: JAMES Transcribe Date/Time: Dec 10 2022 1:31P Dictated by : TYE REN MD This examination was interpreted and the report reviewed and electronically signed by: TYE REN MD on Dec 10 2022 1:38PM EST [id number] Normal [facility] KIDNEY/BLADDERon 10-07-19 Radiology Result ACTIONABLE Abnormal [facility] No Panel Informationon 09-27 BLANK _ [facility] Implant Date 10/21/2020 [facility] PACEMAKER REMOTE CHECKon AV Delay Adaptive Paced Minimum (ms) 180 ms [facility] AV Delay Adaptive Sensed Minimum (ms) 150 ms [facility] AV Delay Adaptive Status DISABLED [facility] Battery Voltage (volts) 3.02 V [facility] Pavan RA Pacing Amplitude (volts) 1.5 V [facility] Pavan RA Pacing Polarity BI [facility] Pavan RA Pacing Pulse Width (ms) 0.4 ms [facility] Pavan RA Sensing Amplitude (mvolts) 0.3 mV [facility] Pavan RA Sensing Blanking Period (ms) 150 ms [facility] Pavan RA Sensing Polarity BI [facility] Pavan RA Sensing Refractory Period (ms) Auto [facility] Pavan RV Pacing Amplitude (volts) 2 V [facility] Pavan RV Pacing Polarity BI [facility] Pavan RV Pacing Pulse Width (ms) 0.4 ms [facility] Pavan RV Sensing Amplitude (mvolts) 0.9 mV [facility] Pavan RV Sensing Blanking Period (ms) 200 ms [facility] Pavan RV Sensing Polarity BI [facility] Hysteresis Rate (bpm) DISABLED [facility] Lead1 Mfg MDT [facility] Lead2 Mfg MDT [facility] Location RV [facility] Location RA [facility] Lower Rate (bpm) 60 {beats}/min [facility] Max Sensor Rate (bmp) 120 {beats}/min [facility] Model [id number] Sania XT DR MRI Cl [facility] Model 3830 SelectSecure MR I Jourdan [facility] Model 5076 CapSureFix [facility] PM-Device Mfg MDT [facility] PM-Percent Pacing (A) 46.27 % [facility] PM-Percent Pacing (V) 11.47 % [facility] PM-PMT Intervention ENABLED [facility] PM-PVC Intervention ENABLED [facility] PM-Rate Modulation Acceleration Reaction 30 s [facility] PM-Rate Modulation ADL Rate (bpm) 95 {beats}/min [facility] PM-Rate Modulation Deceleration Exercise [facility] PM-Rate Modulation [place] 3 [facility] PM-Rate Modulation Threshold Low [facility] RA Bipolar Impedance ohms 494 ohm [facility] RA Unipolar Impedance ohms 285 ohm [facility] RV Bipolar Impedance ohms 437 ohm [facility] RV Unipolar Impedance 323 ohm [facility] Serial Number [id number] [facility] Serial Number [id number] [facility] Serial Number [id number] [facility] Thresh RA Capture Amplitude (volts) 0.5 V [facility] Thresh RA Capture Duration (ms) 0.4 ms [facility] Thresh RA Sensing Amplitude (mvolts) 0.5 mV [facility] Thresh RV Capture Amplitude (volts) 1 V [facility] Thresh RV Capture Duration (ms) 0.4 ms [facility] Thresh RV Sensing Amplitude (mvolts) 13.375 mV [facility] Tracking Rate (bpm) 120 {beats}/min [facility] No Panel Informationon 06-30 BLANK _ [facility] Implant Date 10/21/2020 [facility] PACEMAKER REMOTE CHECKon AV Delay Adaptive Paced Minimum (ms) 180 ms [facility] AV Delay Adaptive Sensed Minimum (ms) 150 ms [facility] AV Delay Adaptive Status DISABLED [facility] Battery Voltage (volts) 3.03 V [facility] Pavan RA Pacing Amplitude (volts) 1.5 V [facility] Pavan RA Pacing Polarity BI [facility] Pavan RA Pacing Pulse Width (ms) 0.4 ms [facility] Pavan RA Sensing Amplitude (mvolts) 0.3 mV [facility] Pavan RA Sensing Blanking Period (ms) 150 ms [facility] Pavan RA Sensing Polarity BI [facility] Pavan RA Sensing Refractory Period (ms) Auto [facility] Pavan RV Pacing Amplitude (volts) 2.5 V [facility] Pavan RV Pacing Polarity BI [facility] Pavan RV Pacing Pulse Width (ms) 0.4 ms [facility] Pavan RV Sensing Amplitude (mvolts) 0.9 mV [facility] Pavan RV Sensing Blanking Period (ms) 200 ms [facility] Pavan RV Sensing Polarity BI [facility] Hysteresis Rate (bpm) DISABLED [facility] Lead1 Mfg MDT [facility] Lead2 Mfg MDT [facility] Location RV [facility] Location RA [facility] Lower Rate (bpm) 60 {beats}/min [facility] Max Sensor Rate (bmp) 120 {beats}/min [facility] Model [id number] Ambia XT DR MRI Cl [facility] Model 3830 SelectSecure MR I SureScan [facility] Model 5076 CapSureFix [facility] PM-Device g MDT [facility] PM-Percent Pacing (A) 53.59 % [facility] PM-Percent Pacing (V) 11.72 % [facility] PM-PMT Intervention ENABLED [facility] PM-PVC Intervention ENABLED [facility] PM-Rate Modulation Acceleration Reaction 30 s [facility] PM-Rate Modulation ADL Rate (bpm) 95 {beats}/min [facility] PM-Rate Modulation Deceleration Exercise [facility] PM-Rate Modulation [place] 3 [facility] PM-Rate Modulation Threshold Low [facility] RA Bipolar Impedance ohms 456 ohm [facility] RA Unipolar Impedance ohms 304 ohm [facility] RV Bipolar Impedance ohms 437 ohm [facility] RV Unipolar Impedance 323 ohm [facility] Serial Number [id number] [facility] Serial Number [id number] [facility] Serial Number [id number] [facility] Thresh RA Capture Amplitude (volts) 0.5 V [facility] Thresh RA Capture Duration (ms) 0.4 ms [facility] Thresh RA Sensing Amplitude (mvolts) 0.375 mV [facility] Thresh RV Capture Amplitude (volts) 1.125 V [facility] Thresh RV Capture Duration (ms) 0.4 ms [facility] Thresh RV Sensing Amplitude (mvolts) 9.25 mV [facility] Tracking Rate (bpm) 120 {beats}/min [facility] UA DIP, URINE (POC)on 2021 BILIRUBIN UA (POCT) Negative Negative [facility] CLARITY UA (POCT) Clear [facility] COLOR UA (POCT) Yellow [facility] GLUCOSE UA (POCT) Negative Negative mg/dL [facility] HEMOGLOBIN/BLOOD UA (POCT) Negative Negative [facility] KETONE UA (POCT) Negative Negative mg/dL [facility] LEUKOCYTES UA (POCT) Negative Negative [facility] NITR[facility] (POCT) [facility] PH UA (POCT) 5.5 4.5 - 8.0 [facility] Protein Ql (U) 30 mg/dL Abnormal Negative mg/dL [facility] SPECIFIC GRAVITY UA (POCT) 1.020 1.005 - 1.030 [facility] UROBILINOGEN UA (POCT) 0.2 E.U./dL Cat l E.U./dL [facility] CBC W Auto Differential pane l (Bld)on 04-06-2022 Abs Immature Gran 0.03 k/uL <0.10 k/uL [facility] Basophils (Bld) [#/Vol] 0.08 10*3/uL <0.11 k/uL [facility] Basophils/100 WBC (Bld) 1.1 % C [facility] Differential cell count method Nom (Bld) Auto [facility] Eosinophils (Bld) [#/Vol] 0.11 10*3/uL <0.46 k/uL [facility] Eosinophils/100 WBC (Bld) 1.5 % [facility] Erythrocyte distribution width (RBC) [Ratio] 19.9 % High 11.5 - 15.0 % [facility] Hematocrit (Bld) [Volume fraction] 31.3 % Low 36.0 - 46.0 % [facility] Hemoglobin (Bld) [Mass/Vol] 9.2 g/dL Low 11.5 - 15.5 g/dL [facility] Immature Gran % 0.4 % [facility] Lymphocytes (Bld) [#/Vol] 2.05 10*3/uL 1.00 - 4.00 k/uL [facility] Lymphocytes/100 WBC (Bld) 27.9 % [facility] MCH (RBC) [Entitic mass] 24.5 pg Low 26.0 - 34.0 pg [facility] MCHC (RBC) [Mass/Vol] 29.4 g/dL Low 30.5 - 36.0 g/dL [facility] MCV (RBC) [Entitic vol] 83.5 fL 80.0 - 100.0 fL [facility] Monocytes (Bld) [#/Vol] 0.93 10*3/uL High <0.87 k/uL [facility] Monocytes/100 WBC (Bld) 12.7 % C [facility] Neutrophils (Bld) [#/Vol] 4.14 10*3/uL 1.45 - 7.50 k/uL [facility] Neutrophils/100 WBC (Bld) 56.4 % [facility] Nucleated RBC (Bld) [#/Vol] <0.01 k/uL [facility] Nucleated RBC/100 WBC (Bld) [Ratio] 0.0 /100 WBC [facility] Platelet mean volume (Bld) [Entitic vol] 9.8 fL 9.0 - 12.7 fL [facility] Platelets (Bld) [#/Vol] 266 10*3/uL 150 - 400 k/uL [facility] RBC (Bld) [#/Vol] 3.75 10*6/uL Low 3.90 - 5.2 0 m/uL [facility] WBC (Bld) [#/Vol] 7.34 10*3/uL 3.70 - 11.00 k/uL [facility] FERRITIN BLDon 04-06-2022 Ferritin [Mass/Vol] 27.1 ng/mL 14.7 - 205.1 ng/mL [facility] Iron and Iron binding capaci ty panelon 04-06-2022 Iron [Mass/Vol] 26 ug/dL Low 41 - 186 ug/dL [facility] Iron binding capacity [Mass/Vol] 454 ug/dL High 232 - 386 ug/dL [facility] Iron/TIBC [Molar ratio] 5.7 % Low 15.0 - 57.0 % [facility] No Panel Informationon 03-28 BLANK _ [facility] Implant Date 10/21/2020 [facility] PACEMAKER REMOTE CHECKon AV Delay Adaptive Paced Minimum (ms) 180 ms [facility] AV Delay Adaptive Sensed Minimum (ms) 150 ms [facility] AV Delay Adaptive Status DISABLED [facility] Battery Voltage (volts) 3.03 V [facility] Pavan RA Pacing Amplitude (volts) 1.5 V [facility] Pavan RA Pacing Polarity BI [facility] Pavan RA Pacing Pulse Width (ms) 0.4 ms [facility] Pavan RA Sensing Amplitude (mvolts) 0.3 mV [facility] Pavan RA Sensing Blanking Period (ms) 150 ms [facility] Pavan RA Sensing Polarity BI [facility] Pavan RA Sensing Refractory Period (ms) Auto [facility] Pavan RV Pacing Amplitude (volts) 2 V [facility] Pavan RV Pacing Polarity BI [facility] Pavan RV Pacing Pulse Width (ms) 0.4 ms [facility] Pavan RV Sensing Amplitude (mvolts) 0.9 mV [facility] Pavan RV Sensing Blanking Period (ms) 200 ms [facility] Pavan RV Sensing Polarity BI [facility] Hysteresis Rate (bpm) DISABLED [facility] Lead1 Mfg MDT [facility] Lead2 Mfg MDT [facility] Location RV [facility] Location RA [facility] Lower Rate (bpm) 60 {beats}/min [facility] Max Sensor Rate (bmp) 120 {beats}/min [facility] Model [id number] Ambia XT DR MRI Cl [facility] Model 3830 SelectSecure MR I SureScan [facility] Model 5076 CapSureFix [facility] PM-Device Mfg MDT [facility] PM-Percent Pacing (A) 13.82 % [facility] PM-Percent Pacing (V) 9.69 % [facility] PM-PMT Intervention ENABLED [facility] PM-PVC Intervention ENABLED [facility] PM-Rate Modulation Acceleration Reaction 30 s [facility] PM-Rate Modulation ADL Rate (bpm) 95 {beats}/min [facility] PM-Rate Modulation Deceleration Exercise [facility] PM-Rate Modulation Burleigh 3 [facility] PM-Rate Modulation Threshold Low [facility] RA Bipolar Impedance ohms 437 ohm [facility] RA Unipolar Impedance ohms 285 ohm [facility] RV Bipolar Impedance ohms 418 ohm [facility] RV Unipolar Impedance 323 ohm [facility] Serial Number [id number] [facility] Serial Number [id number] [facility] Serial Number [id number] [facility] Thresh RA Capture Amplitude (volts) 0.75 V [facility] Thresh RA Capture Duration (ms) 0.4 ms [facility] Thresh RA Sensing Amplitude (mvolts) 0.25 mV [facility] Thresh RV Capture Amplitude (volts) 1 V [facility] Thresh RV Capture Duration (ms) 0.4 ms [facility] Thresh RV Sensing Amplitude (mvolts) 13.375 mV [facility] Tracking Rate (bpm) 120 {beats}/min [facility] ECHO TRANSESOPHAGEALon 03-03 [facility] No Panel Informationon 03-03 BLANK _ [facility] Implant Date 10/21/2020 [facility] CHECKon AV Delay Adaptive Paced Minimum (ms) 180 ms [facility] AV Delay Adaptive Sensed Minimum (ms) 150 ms [facility] AV Delay Adaptive Status DISABLED [facility] Battery Voltage (volts) 3.03 V [facility] Pavan RA Pacing Amplitude (volts) 1.5 V [facility] Pavan RA Pacing Polarity BI [facility] Pavan RA Pacing Pulse Width (ms) 0.4 ms [facility] Pavan RA Sensing Amplitude (mvolts) 0.3 mV [facility] Pavan RA Sensing Blanking Period (ms) 150 ms [facility] Pavan RA Sensing Polarity BI [facility] Pavan RA Sensing Refractory Period (ms) Auto [facility] Pavan RV Pacing Amplitude (volts) 2 V [facility] Pavan RV Pacing Polarity BI [facility] Pavan RV Pacing Pulse Width (ms) 0.4 ms [facility] Pavan RV Sensing Amplitude (mvolts) 0.9 mV [facility] Pavan RV Sensing Blanking Period (ms) 200 ms [facility] Pavan RV Sensing Polarity BI [facility] Hysteresis Rate (bpm) DISABLED [facility] Lead1 Mfg MDT [facility] Lead2 Mfg MDT [facility] Location RV [facility] Location RA [facility] Lower Rate (bpm) 60 {beats}/min [facility] Max Sensor Rate (bmp) 120 {beats}/min [facility] Model [id number] Ambia XT DR MRI Cl [facility] Model 3830 SelectSecure MR I SureScan [facility] Model 5076 CapSureFix [facility] Pacemaker Dependent? NO [facility] PM-Device Mfg MDT [facility] PM-Percent Pacing (A) 3.4 % [facility] PM-Percent Pacing (V) 14.6 % [facility] PM-PMT Intervention ENABLED [facility] PM-PVC Intervention ENABLED [facility] PM-Rate Modulation Acceleration Reaction 30 s [facility] PM-Rate Modulation ADL Rate (bpm) 95 {beats}/min [facility] PM-Rate Modulation Deceleration Exercise [facility] PM-Rate Modulation Burleigh 3 [facility] PM-Rate Modulation Threshold Low [facility] RA Bipolar Impedance ohms 456 ohm [facility] RA Unipolar Impedance ohms 285 ohm [facility] Rhythm Atrial Fibrillation [facility] RV Bipolar Impedance ohms 437 ohm [facility] RV Unipolar Impedance 342 ohm [facility] Serial Number [id number] [facility] Serial Number [id number] [facility] Serial Number [id number] [facility] Thresh RA Capture Amplitude (volts) 0.75 V [facility] Thresh RA Capture Duration (ms) 0.4 ms [facility] Thresh RA Sensing Amplitude (mvolts) 0.375 mV [facility] Thresh RV Capture Amplitude (volts) 0.875 V [facility] Thresh RV Capture Duration (ms) 0.4 ms [facility] Thresh RV Sensing Amplitude (mvolts) 12.75 mV [facility] Tracking Rate (bpm) 120 {beats}/min [facility] HEMOGLOBIN (HGB)on Hemoglobin (Bld) [Mass/Vol] 8.1 g/dL Low 11.5 - 15.5 g/dL [facility] Hematocrit Auto (Bld) [Volum e fraction]on 02-20-2022 Hematocrit (Bld) [Volume fraction] 26.4 % Low 36.0 - 46.0 % [facility] No Panel Informationon 01-09 BLANK _ [facility] Implant Date 10/21/2020 [facility] CHECKon AV Delay Adaptive Paced Minimum (ms) 180 ms [facility] AV Delay Adaptive Sensed Minimum (ms) 150 ms [facility] AV Delay Adaptive Status DISABLED [facility] Battery Voltage (volts) 3.04 V [facility] Pavan RA Pacing Amplitude (volts) 1.5 V [facility] Pavan RA Pacing Polarity BI [facility] Pavan RA Pacing Pulse Width (ms) 0.4 ms [facility] Pavan RA Sensing Amplitude (mvolts) 0.3 mV [facility] Pavan RA Sensing Blanking Period (ms) 150 ms [facility] Pavan RA Sensing Polarity BI [facility] Pavan RA Sensing Refractory Period (ms) Auto [facility] Pavan RV Pacing Amplitude (volts) 2 V [facility] Pavan RV Pacing Polarity BI [facility] Pavan RV Pacing Pulse Width (ms) 0.4 ms [facility] Pavan RV Sensing Amplitude (mvolts) 0.9 mV [facility] Pavan RV Sensing Blanking Period (ms) 200 ms [facility] Pavan RV Sensing Polarity BI [facility] Hysteresis Rate (bpm) DISABLED [facility] Lead1 Mfg MDT [facility] Lead2 Mfg MDT [facility] Location RV [facility] Location RA [facility] Lower Rate (bpm) 60 {beats}/min [facility] Max Sensor Rate (bmp) 120 {beats}/min [facility] Model [id number] Sania XT DR MRI Cl [facility] Model 3830 SelectSecure MR I SureScan [facility] Model 5076 CapSureFix [facility] Pacemaker Dependent? NO [facility] PM-Device Karlg MDT [facility] PM-Percent Pacing (A) 32.01 % [facility] PM-Percent Pacing (V) 13.19 % [facility] PM-PMT Intervention ENABLED [facility] PM-PVC Intervention ENABLED [facility] PM-Rate Modulation Acceleration Reaction 30 s [facility] PM-Rate Modulation ADL Rate (bpm) 95 {beats}/min [facility] PM-Rate Modulation Deceleration Exercise [facility] PM-Rate Modulation Burleigh 3 [facility] PM-Rate Modulation Threshold Low [facility] RA Bipolar Impedance ohms 456 ohm [facility] RA Unipolar Impedance ohms 285 ohm [facility] Rhythm Atrial Fibrillation [facility] RV Bipolar Impedance ohms 437 ohm [facility] RV Unipolar Impedance 342 ohm [facility] Serial Number [id number] [facility] Serial Number [id number] [facility] Serial Number [id number] [facility] Thresh RA Capture Amplitude (volts) 0.75 V [facility] Thresh RA Capture Duration (ms) 0.4 ms [facility] Thresh RA Sensing Amplitude (mvolts) 0.375 mV [facility] Thresh RV Capture Amplitude (volts) 1 V [facility] Thresh RV Capture Duration (ms) 0.4 ms [facility] Thresh RV Sensing Amplitude (mvolts) 13.6 mV [facility] Tracking Rate (bpm) 120 {beats}/min [facility] EGD DIAGNOSTICon 01-02-2022 [facility] CBC panel Auto (Bld)on 12-26 Erythrocyte distribution width (RBC) [Ratio] 16.8 % High 11.5 - 15.0 % [facility] Hematocrit (Bld) [Volume fraction] 28.2 % Low 36.0 - 46.0 % [facility] Hemoglobin (Bld) [Mass/Vol] 8.1 g/dL Low 11.5 - 15.5 g/dL [facility] MCH (RBC) [Entitic mass] 24.5 pg Low 26.0 - 34.0 pg [facility] MCHC (RBC) [Mass/Vol] 28.7 g/dL Low 30.5 - 36.0 g/dL [facility] MCV (RBC) [Entitic vol] 85.5 fL 80.0 - 100.0 fL [facility] Nucleated RBC (Bld) [#/Vol] 10*3/uL <0.01 k/uL [facility] Platelet mean volume (Bld) [Entitic vol] 10.3 fL 9.0 - 12.7 fL [facility] Platelets (Bld) [#/Vol] 248 10*3/uL 150 - 400 k/uL [facility] RBC (Bld) [#/Vol] 3.30 10*6/uL Low 3.90 - 5.2 0 m/uL [facility] WBC (Bld) [#/Vol] 10.54 10*3/uL 3.70 - 11.00 k/uL [facility] CBC panel Auto (Bld)on 12-15 Erythrocyte distribution width (RBC) [Ratio] 15.7 % High 11.5 - 15.0 % [facility] Hematocrit (Bld) [Volume fraction] 31.0 % Low 36.0 - 46.0 % [facility] Hemoglobin (Bld) [Mass/Vol] 9.3 g/dL Low 11.5 - 15.5 g/dL [facility] MCH (RBC) [Entitic mass] 24.4 pg Low 26.0 - 34.0 pg [facility] MCHC (RBC) [Mass/Vol] 30.0 g/dL Low 30.5 - 36.0 g/dL [facility] MCV (RBC) [Entitic vol] 81.4 fL 80.0 - 100.0 fL [facility] Nucleated RBC (Bld) [#/Vol] 10*3/uL <0.01 k/uL [facility] Platelet mean volume (Bld) [Entitic vol] 10.0 fL 9.0 - 12.7 fL [facility] Platelets (Bld) [#/Vol] 273 10*3/uL 150 - 400 k/uL [facility] RBC (Bld) [#/Vol] 3.81 10*6/uL Low 3.90 - 5.2 0 m/uL [facility] WBC (Bld) [#/Vol] 9.78 10*3/uL 3.70 - 11.00 k/uL [facility] HbA1c (Bld)on 12-15-2021 Average glucose Estimated from glycated hemoglobin (Bld) [Mass/Vol] 157 mg/dL [facility] HbA1c (Bld) [Mass fraction] 7.1 % High 4.3 - 5.6 % [facility] Lipid 1996 panelon 2 Cholesterol [Mass/Vol] 121 mg/dL <200 mg/dL [facility] Cholesterol in HDL [Mass/Vol] 43 mg/dL >39 mg/dL [facility] Cholesterol in LDL [Mass/Vol] 59 mg/dL <100 mg/dL [facility] Cholesterol in LDL/Cholesterol in HDL [Mass ratio] 1.37 {ratio} <2.54 [facility] Cholesterol in VLDL [Mass/Vol] 19 mg/dL <30 mg/dL [facility] Cholesterol non HDL [Mass/Vol] 78 mg/dL <130 mg/dL [facility] Cholesterol.total/Gin sterol in HDL [Mass ratio] 2.81 {ratio} <5.10 [facility] Fasting Time 12 hrs [facility] Triglyceride [Mass/Vol] 93 mg/dL <150 mg/dL [facility] XR HIP GENERAL 3V PELV/AP/LA T LEFTon 12-15-2021 [facility] XR Pelvis and Hip - left AP and Lateral frogon 12-15-2021 IMPRESSION: NEGATIVE HIP. Supervisory Forester: PSCB Transcribe Date/Time: Dec 15 2021 12:36P Dictated by : JUAN MOSCOSO MD This examination was interpreted and the report reviewed and electronically signed by: JUAN MOSCOSO MD on Dec 15 2021 12:38PM EST [email or web address]_ USE_DIVISIO N OF RADIOLOGY * * *Final Report* * [...] relevant examinations available for comparison within the [facility] Imaging Archives. RESULT: Supine radiograph of the pelvis as well as AP and frogleg views of the left hip demonstrate the bony pelvic ring intact. The hips are bilaterally symmetric without fracture or dislocation. No acute bony process is noted. The soft tissues demonstrate aortoiliac calcification [email or web address]_ USE_DIVISIO N OF RADIOLOGY Provider, [facility] - 12/15/2021 * * *Final Report* * [...] relevant examinations available for comparison within the [facility]. RESULT: Supine radiograph of the pelvis as well as AP and frogleg views of the left hip demonstrate the bony pelvic ring intact. The hips are bilaterally symmetric without fracture or dislocation. No acute bony process is noted. The soft tissues demonstrate aortoiliac calcification IMPRESSION IMPRESSION: NEGATIVE HIP. Super[facility] Fore[facility] Transcribe Date/Time: Dec 15 2021 12:36P Dictated by : JUAN MOSCOSO MD This examination was interpreted and the report reviewed and electronically signed by: JUAN MOSCOSO MD on Dec 15 2021 12:38PM [facility] Radiology Study observation (narrative) Chris Miranda XR Pelvis and Hip - left AP and Lateral frogOrdered By: Ccf Provider on 12-15-2021 [facility] No Panel Informationon 12-13 BLANK _ [facility] Implant Date 10/21/2020 [facility] PACEMAKER REMOTE CHECKon AV Delay Adaptive Paced Minimum (ms) 180 ms [facility] AV Delay Adaptive Sensed Minimum (ms) 150 ms [facility] AV Delay Adaptive Status DISABLED [facility] Battery Voltage (volts) 3.04 V [facility] Pavan RA Pacing Amplitude (volts) 1.5 V [facility] Pavan RA Pacing Polarity BI [facility] Pavan RA Pacing Pulse Width (ms) 0.4 ms [facility] Pavan RA Sensing Amplitude (mvolts) 0.3 mV [facility] Pavan RA Sensing Blanking Period (ms) 150 ms [facility] Pavan RA Sensing Polarity BI [facility] Pavan RA Sensing Refractory Period (ms) Auto [facility] Pavan RV Pacing Amplitude (volts) 2 V [facility] Pavan RV Pacing Polarity BI [facility] Pavan RV Pacing Pulse Width (ms) 0.4 ms [facility] Pavan RV Sensing Amplitude (mvolts) 0.9 mV [facility] Pavan RV Sensing Blanking Period (ms) 200 ms [facility] Pavan RV Sensing Polarity BI [facility] Hysteresis Rate (bpm) DISABLED [facility] Lead1 Mfg MDT [facility] Lead2 Mfg MDT [facility] Location RV [facility] Location RA [facility] Lower Rate (bpm) 60 {beats}/min [facility] Max Sensor Rate (bmp) 120 {beats}/min [facility] Model [id number] Sania XT DR MRI Cl [facility] Model 3830 SelectSecure MR I SureScan [facility] Model 5076 CapSureFix [facility] PM-Device Mfg MDT [facility] PM-Percent Pacing (A) 0.2 % [facility] PM-Percent Pacing (V) 19.48 % [facility] PM-PMT Intervention ENABLED [facility] PM-PVC Intervention ENABLED [facility] PM-Rate Modulation Acceleration Reaction 30 s [facility] PM-Rate Modulation ADL Rate (bpm) 95 {beats}/min [facility] PM-Rate Modulation Deceleration Exercise [facility] PM-Rate Modulation Burleigh 3 [facility] PM-Rate Modulation Threshold Low [facility] RA Bipolar Impedance ohms 475 ohm [facility] RA Unipolar Impedance ohms 285 ohm [facility] RV Bipolar Impedance ohms 418 ohm [facility] RV Unipolar Impedance 323 ohm [facility] Serial Number [id number] [facility] Serial Number [id number] [facility] Serial Number [id number] [facility] Thresh RA Capture Amplitude (volts) 0.75 V [facility] Thresh RA Capture Duration (ms) 0.4 ms [facility] Thresh RA Sensing Amplitude (mvolts) 0.5 mV [facility] Thresh RV Capture Amplitude (volts) 0.875 V [facility] Thresh RV Capture Duration (ms) 0.4 ms [facility] Thresh RV Sensing Amplitude (mvolts) 12.625 mV [facility] Tracking Rate (bpm) 120 {beats}/min [facility] No Panel Informationon 09-26 BLANK _ [facility] Implant Date 10/21/2020 [facility] PACEMAKER REMOTE CHECKon AV Delay Adaptive Paced Minimum (ms) 180 ms [facility] AV Delay Adaptive Sensed Minimum (ms) 150 ms [facility] AV Delay Adaptive Status DISABLED [facility] Battery Voltage (volts) 3.06 V [facility] Pavan RA Pacing Amplitude (volts) 1.5 V [facility] Pavan RA Pacing Polarity BI [facility] Pavan RA Pacing Pulse Width (ms) 0.4 ms [facility] Pavan RA Sensing Amplitude (mvolts) 0.3 mV [facility] Pavan RA Sensing Blanking Period (ms) 150 ms [facility] Pavan RA Sensing Polarity BI [facility] Pavan RA Sensing Refractory Period (ms) Auto [facility] Pavan RV Pacing Amplitude (volts) 2 V [facility] Pavan RV Pacing Polarity BI [facility] Pavan RV Pacing Pulse Width (ms) 0.4 ms [facility] Pavan RV Sensing Amplitude (mvolts) 0.9 mV [facility] Pavan RV Sensing Blanking Period (ms) 200 ms [facility] Pavan RV Sensing Polarity BI [facility] Hysteresis Rate (bpm) DISABLED [facility] Lead1 Mfg MDT [facility] Lead2 Mfg MDT [facility] Location RV [facility] Location RA [facility] Lower Rate (bpm) 60 {beats}/min [facility] Max Sensor Rate (bmp) 120 {beats}/min [facility] Model [id number] Ambia XT DR SELAM [facility] Model 3830 SelectSecure MR I SureScjuliana [facility] Model 5076 CapSureFix [facility] PM-Device Mfg MDT [facility] PM-Percent Pacing (A) 0.09 % [facility] PM-Percent Pacing (V) 23.44 % [facility] PM-PMT Intervention ENABLED [facility] PM-PVC Intervention ENABLED [facility] PM-Rate Modulation Acceleration Reaction 30 s [facility] PM-Rate Modulation ADL Rate (bpm) 95 {beats}/min [facility] PM-Rate Modulation Deceleration Exercise [facility] PM-Rate Modulation Burleigh 3 [facility] PM-Rate Modulation Threshold Low [facility] RA Bipolar Impedance ohms 532 ohm [facility] RA Unipolar Impedance ohms 304 ohm [facility] RV Bipolar Impedance ohms 418 ohm [facility] RV Unipolar Impedance 342 ohm [facility] Serial Number [id number] [facility] Serial Number [id number] [facility] Serial Number [id number] [facility] Thresh RA Capture Amplitude (volts) 0.75 V [facility] Thresh RA Capture Duration (ms) 0.4 ms [facility] Thresh RA Sensing Amplitude (mvolts) 0.625 mV [facility] Thresh RV Capture Amplitude (volts) 0.875 V [facility] Thresh RV Capture Duration (ms) 0.4 ms [facility] Thresh RV Sensing Amplitude (mvolts) 12 mV [facility] Tracking Rate (bpm) 120 {beats}/min [facility] PROGRESSon 03-08-2019 PROGRESS HNO ID: [id number] Author: Sheree Logan (Rt) Manolo Elaine Service: Radiology Author Type: Garnetter Type: Progress Notes Filed: 03/08/2019 2:55 PM [...] RT Echo March 08, 2019 2:55 PM [facility] XR CHEST 2V FRONTAL/LATon XR CHEST 2V FRONTAL/LAT * * *Final Repor t* * * DATE OF EXAM: Mar 08 [...] mm nodule right lung base. Follow-up recommended Supervisory Forester: JAMES Transcribe Date/Time: Mar 08 2019 4:59P Dictated by : EMMA PERALTA DO This examination was interpreted and the report reviewed and electronically signed by: EMMA PERALTA DO on Mar 08 2019 5:03PM EST [id number] [facility] MRA BRAIN W/O CONTRASTon MRA BRAIN W/O CONTRAST Performed at 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 However, the mobile MRI scanner was not capable of performing the needed MR angiographic sequences. All charges related to the examination was canceled. IMPRESSION: Nondiagnostic MRA study as noted with all charges canceled. The study is to be rescheduled at [facility]. Normal [facility] Vital Signs Date Time Vital Sign Value Performing Clinician Jabari rogers 01-11-2025 10:44-0400 Heart rate 71 /min Deysi Collazo NP-C Work Phone: [facility] 01-11-2025 08:59-0400 Body temperature 98.1 [degF] Deysi Collazo BACK TENDER CYLINDER-C Work Phone: [facility] 01-11-2025 08:59-0400 Diastolic blood pressure 55 mm[Hg] Deysi Haagen BACK TENDER CYLINDER-C Work Phone: [phone])806-543679 [place] [address] 01-11-2025 08:59-0400 Respiratory rate 18 /min Deysi Hadon BACK TENDER CYLINDER-C Work Phone: [phone])988-419679 [place] [address] 01-11-2025 08:59-0400 SaO2% (BldA) [Mass fraction] 100 % Deysi Haagen BACK TENDER CYLINDER-C Work Phone: 1([phone])361-853079 [place] [address] 01-11-2025 08:59-0400 Systolic blood pressure 153 mm[Hg] Deysi Haagen BACK TENDER CYLINDER-C Work Phone: [phone] [place] [address] 01-11-2025 05:50-0400 Body mass index (BMI) [Ratio] 28 kg/m2 Deysi Haagen BACK TENDER CYLINDER-C Work Phone: [phone] [place] [address] 01-11-2025 05:50-0400 Body weight 71.8 kg Deysi Haagen BACK TENDER CYLINDER-C Work Phone: [phone])351-305579 [place] [address] 01-08-2025 10:03-0400 Body height 160.02 cm Deysi Haagen BACK TENDER CYLINDER-C Work Phone: 3([phone] [place] [address] 01-07-2025 17:11-0400 Diastolic blood pressure 66 mm[Hg] Deysi Haagen BACK TENDER CYLINDER-C Work Phone: 1([phone])249-817079 [place] [address] 01-07-2025 17:11-0400 Heart rate 75 /min Deysi Haagen BACK TENDER CYLINDER-C Work Phone: [phone])048-586279 [place] [address] 01-07-2025 17:11-0400 Respiratory rate 16 /min Deysi Haagen BACK TENDER CYLINDER-C Work Phone: [phone])830-828979 [place] [address] 01-07-2025 17:11-0400 SaO2% (BldA) [Mass fraction] 100 % Deysi Haagen BACK TENDER CYLINDER-C Work Phone: [phone] [place] [address] 01-07-2025 17:11-0400 Systolic blood pressure 154 mm[Hg] Deysi Haagen BACK TENDER CYLINDER-C Work Phone: [phone])228-613079 [place] [address] 01-07-2025 16:28-0400 Body temperature 97.7 [degF] Deysi Collazo BACK TENDER CYLINDER-C Work Phone: [facility] 01-07-2025 13:27-0400 Body mass index (BMI) [Ratio] 27.5 kg/m2 Deysi Collazo BACK TENDER CYLINDER-C Work Phone: [facility] 01-07-2025 13:27-0400 Body weight 70.48 kg Deysi Collazo BACK TENDER CYLINDER-C Work Phone: [facility] 01-07-2025 12:47-0400 Body height 160.02 cm Deysi Collazo BACK TENDER CYLINDER-C Work Phone: [facility] 01-01-2025 10:29-0400 Body height 157.5 cm Carla Burdick MD Work Phone: [facility] 01-01-2025 10:29-0400 Body mass index (BMI) [Ratio] 27.18 kg/m2 Carla Burdick MD Work Phone: [facility] 01-01-2025 10:29-0400 Body weight 67.41 kg Carla Burdick MD Work Phone: [facility] 01-01-2025 10:29-0400 Diastolic blood pressure 60 mm[Hg] Carla Burdick MD Work Phone: [facility] 01-01-2025 10:29-0400 Heart rate 84 /min Carla Burdick MD Work Phone: [facility] 01-01-2025 10:29-0400 Respiratory rate 18 /min Carla Burdick MD Work Phone: [facility] 01-01-2025 10:29-0400 SaO2% (BldA) [Mass fraction] 100 % Carla Burdick MD Work Phone: [facility] 01-01-2025 10:29-0400 Systolic blood pressure 156 mm[Hg] Carla Burdick MD Work Phone: [facility] 12-20-2024 08:29-0400 Body mass index (BMI) [Ratio] 27.18 kg/m2 Lars Silva DO Work Phone: [facility] 12-20-2024 08:29-0400 Body weight 67.4 kg Lars Silva DO Work Phone: [facility] 12-20-2024 08:29-0400 Diastolic blood pressure 75 mm[Hg] Lars Silva DO Work Phone: [facility] 12-20-2024 08:29-0400 Heart rate 77 /min Lars Silva DO Work Phone: [facility] 12-20-2024 08:29-0400 SaO2% (BldA) [Mass fraction] 100 % Lars Silva DO Work Phone: [facility] 12-20-2024 08:29-0400 Systolic blood pressure 154 mm[Hg] Lars Silva DO Work Phone: [facility] 12-19-2024 11:38-0400 Diastolic blood pressure 54 mm[Hg] Albin Aurin EDGE STRIPPER.[employer]NAGER [employer]ATORY Work Phone: [facility] Comment on above: post IV lasix 12-19-2024 11:38-0400 Systolic blood pressure 157 mm[Hg] Albin Aurin EDGE STRIPPER.MANAGER [employer]ULATORY Work Phone: [facility] Comment on above: post IV lasix 12-19-2024 10:56-0400 Body mass index (BMI) [Ratio] 26.34 kg/m2 Albin Aurin EDGE STRIPPER.MANAGER [employer]ULATORY Work Phone: [facility] 12-19-2024 10:56-0400 Body weight 65.32 kg Albin Aurin EDGE STRIPPER.MANAGER [employer]ULATORY Work Phone: [facility] 12-19-2024 10:56-0400 Heart rate 79 /min Albin Aurin EDGE STRIPPER.MANAGER [employer]ULATORY Work Phone: [facility] 12-19-2024 10:56-0400 SaO2% (BldA) [Mass fraction] 99 % Albin Aurin EDGE STRIPPER.MANAGER [employer]ULATORY Work Phone: [facility] 11-20-2024 08:06-0400 Body height 157.5 cm Carla Burdick MD Work Phone: [facility] 11-20-2024 08:06-0400 Body mass index (BMI) [Ratio] 26.3 kg/m2 Carla Burdick MD Work Phone: [facility] 11-20-2024 08:06-0400 Body weight 65.23 kg Carla Burdick MD Work Phone: [facility] 11-20-2024 08:06-0400 Diastolic blood pressure 62 mm[Hg] Carla Burdick MD Work Phone: [facility] 11-20-2024 08:06-0400 Heart rate 84 /min Carla Burdick MD Work Phone: [facility] 11-20-2024 08:06-0400 Respiratory rate 12 /min Carla Burdick MD Work Phone: [facility] 11-20-2024 08:06-0400 SaO2% (BldA) [Mass fraction] 99 % Carla Burdick MD Work Phone: [facility] 11-20-2024 08:06-0400 Systolic blood pressure 154 mm[Hg] Carla Burdick MD Work Phone: [facility] 11-06-2024 15:03-0400 Body height 157.5 cm Carla Burdick MD Work Phone: [facility] 11-06-2024 15:03-0400 Body mass index (BMI) [Ratio] 27.8 kg/m2 Carla Burdick MD Work Phone: [facility] 11-06-2024 15:03-0400 Body weight 68.95 kg Carla Burdick MD Work Phone: [facility] 11-06-2024 15:03-0400 Diastolic blood pressure 54 mm[Hg] Carla Burdick MD Work Phone: [facility] 11-06-2024 15:03-0400 Heart rate 68 /min Carla Burdick MD Work Phone: [facility] 11-06-2024 15:03-0400 Respiratory rate 12 /min Carla Burdick MD Work Phone: [facility] 11-06-2024 15:03-0400 SaO2% (BldA) [Mass fraction] 100 % Carla Burdick MD Work Phone: [facility] 11-06-2024 15:03-0400 Systolic blood pressure 134 mm[Hg] Carla Burdick MD Work Phone: [facility] 11-03-2024 10:06-0400 Diastolic blood pressure 44 mm[Hg] Albin Aurin EDGE STRIPPER.MANAGER [employer]ULATORY Work Phone: [facility] 11-03-2024 10:06-0400 Systolic blood pressure 121 mm[Hg] Albin Aurin EDGE STRIPPER.MANAGER [employer]ULATORY Work Phone: [facility] 11-03-2024 08:56-0400 Body mass index (BMI) [Ratio] 26.89 kg/m2 Albin Aurin EDGE STRIPPER.MANAGER [employer]ULATORY Work Phone: [facility] 11-03-2024 08:56-0400 Body weight 66.68 kg Albin Aurin EDGE STRIPPER.MANAGER [employer]ULATORY Work Phone: [facility] 11-03-2024 08:56-0400 Heart rate 66 /min Albin Aurin EDGE STRIPPER.MANAGER [employer]ULATORY Work Phone: [facility] 11-03-2024 08:56-0400 SaO2% (BldA) [Mass fraction] 100 % Albin Aurin EDGE STRIPPER.MANAGER [employer]ULATORY Work Phone: [facility] 10-31-2024 11:09-0400 Body mass index (BMI) [Ratio] 25.97 kg/m2 Shaye Domingo EDGE STRIPPER.MANAGER [employer]ULATORY Work Phone: [facility] 10-31-2024 11:09-0400 Body weight 64.41 kg Shaye Domingo APRN.MANAGER REGULATORY Work Phone: [facility] 10-31-2024 11:09-0400 Diastolic blood pressure 68 mm[Hg] Shaye Domingo EDGE STRIPPER.MANAGER [employer]ULATORY Work Phone: [facility] 10-31-2024 11:09-0400 Heart rate 84 /min Shaye Domingo EDGE STRIPPER.MANAGER [employer]ULATORY Work Phone: [facility] 10-31-2024 11:09-0400 Systolic blood pressure 147 mm[Hg] Shaye Domingo EDGE STRIPPER.MANAGER [employer]ULATORY Work Phone: [facility] 04-07-2024 09:30-0400 Body mass index (BMI) [Ratio] 25.06 kg/m2 Albin Aurin EDGE STRIPPER.MANAGER [employer]ULATORY Work Phone: [facility] 04-07-2024 09:30-0400 Body weight 62.14 kg Albin Aurin EDGE STRIPPER.MANAGER [employer]ULATORY Work Phone: [facility] 04-07-2024 09:30-0400 Diastolic blood pressure 47 mm[Hg] Albin Aurin EDGE STRIPPER.MANAGER [employer]ULATORY Work Phone: [facility] 04-07-2024 09:30-0400 Heart rate 91 /min Albin Aurin EDGE STRIPPER.MANAGER [employer]ULATORY Work Phone: [facility] 04-07-2024 09:30-0400 SaO2% (BldA) [Mass fraction] 98 % Albin Aurin EDGE STRIPPER.MANAGER [employer]ULATORY Work Phone: [facility] 04-07-2024 09:30-0400 Systolic blood pressure 142 mm[Hg] Albin Aurin EDGE STRIPPER.MANAGER [employer]ULATORY Work Phone: [facility] 01-17-2024 09:50-0400 Body height 157.5 cm Carla Burdick MD Work Phone: [facility] 01-17-2024 09:50-0400 Body mass index (BMI) [Ratio] 26.92 kg/m2 Carla Burdick MD Work Phone: [facility] 01-17-2024 09:50-0400 Body weight 66.77 kg Carla Burdick MD Work Phone: [facility] 01-17-2024 09:50-0400 Diastolic blood pressure 59 mm[Hg] Carla Burdick MD Work Phone: [facility] 01-17-2024 09:50-0400 Heart rate 64 /min Carla Burdick MD Work Phone: [facility] 01-17-2024 09:50-0400 SaO2% (BldA) [Mass fraction] 99 % Carla Burdick MD Work Phone: [facility] 01-17-2024 09:50-0400 Systolic blood pressure 157 mm[Hg] Carla Burdick MD Work Phone: [facility] 12-07-2023 11:46-0400 Diastolic blood pressure 76 mm[Hg] Deysi Haagen EDGE STRIPPER.MANAGER [employer]ULATORY Work Phone: [facility] 12-07-2023 11:46-0400 Heart rate 68 /min Deysi Haagen EDGE STRIPPER.MANAGER [employer]ULATORY Work Phone: [facility] 12-07-2023 11:46-0400 Respiratory rate 16 /min Deysi Haagen EDGE STRIPPER.MANAGER REGULATORY Work Phone: [facility] 12-07-2023 11:46-0400 SaO2% (BldA) [Mass fraction] 97 % Deysi Haagen EDGE STRIPPER.MANAGER REGULATORY Work Phone: [facility] 12-07-2023 11:46-0400 Systolic blood pressure 128 mm[Hg] Deysi Haagen EDGE STRIPPER.MANAGER REGULATORY Work Phone: [facility] 11-25-2023 10:42-0400 Diastolic blood pressure 37 mm[Hg] Albin Aurin EDGE STRIPPER.MANAGER REGULATORY Work Phone: [facility] 11-25-2023 10:42-0400 Systolic blood pressure 160 mm[Hg] Albin Aurin EDGE STRIPPER.MANAGER REGULATORY Work Phone: [facility] 11-25-2023 10:00-0400 Body mass index (BMI) [Ratio] 26.89 kg/m2 Albin Aurin EDGE STRIPPER.MANAGER REGULATORY Work Phone: [facility] 11-25-2023 10:00-0400 Body weight 66.68 kg Albin Aurin EDGE STRIPPER.MANAGER REGULATORY Work Phone: [facility] 11-25-2023 10:00-0400 Heart rate 60 /min Albin Aurin EDGE STRIPPER.MANAGER REGULATORY Work Phone: [facility] 11-25-2023 10:00-0400 SaO2% (BldA) [Mass fraction] 98 % Albin Aurin EDGE STRIPPER.MANAGER REGULATORY Work Phone: [facility] 11-22-2023 09:09-0400 Body mass index (BMI) [Ratio] 27.44 kg/m2 Deysi Haagen EDGE STRIPPER.MANAGER REGULATORY Work Phone: [facility] 11-22-2023 09:09-0400 Body weight 68.04 kg Deysi Haagen EDGE STRIPPER.MANAGER REGULATORY Work Phone: [facility] 11-22-2023 09:09-0400 Diastolic blood pressure 76 mm[Hg] Deysi Haagen EDGE STRIPPER.MANAGER REGULATORY Work Phone: [facility] 11-22-2023 09:09-0400 Heart rate 67 /min Deysi Haagen EDGE STRIPPER.MANAGER REGULATORY Work Phone: [facility] 11-22-2023 09:09-0400 Respiratory rate 16 /min Deysi Haagen EDGE STRIPPER.MANAGER REGULATORY Work Phone: [facility] 11-22-2023 09:09-0400 SaO2% (BldA) [Mass fraction] 98 % Deysi Haagen EDGE STRIPPER.MANAGER REGULATORY Work Phone: [facility] 11-22-2023 09:09-0400 Systolic blood pressure 128 mm[Hg] Deysi Haagen EDGE STRIPPER.MANAGER REGULATORY Work Phone: [facility] 11-08-2023 16:36-0400 Body mass index (BMI) [Ratio] 29.98 kg/m2 Bere Boykin EDGE STRIPPER.MANAGER REGULATORY Work Phone: [facility] 11-08-2023 16:36-0400 Body weight 73.17 kg Bere Boykin EDGE STRIPPER.C [employer]ER CYLINDER Work Phone: [facility] 11-08-2023 16:36-0400 Diastolic blood pressure 70 mm[Hg] Bere Boykin EDGE STRIPPER.MANAGER REGULATORY Work Phone: [facility] 11-08-2023 16:36-0400 Heart rate 94 /min Bere Boykin EDGE STRIPPER.C BACK T[employer]ER CYLINDER Work Phone: [facility] 11-08-2023 16:36-0400 SaO2% (BldA) [Mass fraction] 95 % Bere Boykin EDGE STRIPPER.MANAGER REGULATORY Work Phone: [facility] 11-08-2023 16:36-0400 Systolic blood pressure 156 mm[Hg] Bere Boykin EDGE STRIPPER.MANAGER REGULATORY Work Phone: [facility] 11-04-2023 08:08-0400 Body mass index (BMI) [Ratio] 29.74 kg/m2 NA Le PA-C Work Phone: [facility] 11-04-2023 08:08-0400 Body weight 72.58 kg NA Le PA-C Work Phone: [facility] 11-04-2023 08:08-0400 Diastolic blood pressure 70 mm[Hg] NA Le PA-C Work Phone: [facility] 11-04-2023 08:08-0400 Heart rate 88 /min NA Le PA-C Work Phone: [facility] 11-04-2023 08:08-0400 Respiratory rate 20 /min NA Le PA-C Work Phone: [facility] 11-04-2023 08:08-0400 SaO2% (BldA) [Mass fraction] 97 % NA Le PA-C Work Phone: [facility] 11-04-2023 08:08-0400 Systolic blood pressure 130 mm[Hg] NA Le PA-C Work Phone: [facility] 10-18-2023 13:11-0400 Diastolic blood pressure 76 mm[Hg] NA Le PA-C Work Phone: [facility] 10-18-2023 13:11-0400 Systolic blood pressure 144 mm[Hg] NA Le PA-C Work Phone: [facility] 10-18-2023 13:04-0400 Body weight 75.48 kg NA Le PA-C Work Phone: [facility] 10-18-2023 13:04-0400 Heart rate 90 /min NA Le PA-C Work Phone: [facility] 10-18-2023 13:04-0400 Respiratory rate 20 /min NA Le PA-C Work Phone: [facility] 10-18-2023 13:04-0400 SaO2% (BldA) [Mass fraction] 99 % NA Le PA-C Work Phone: [facility] 10-14-2023 14:40-0400 Diastolic blood pressure 73 mm[Hg] Lars Silva DO Work Phone: [facility] 10-14-2023 14:40-0400 Heart rate 85 /min Lars Silva DO Work Phone: [facility] 10-14-2023 14:40-0400 SaO2% (BldA) [Mass fraction] 97 % Lars Silva DO Work Phone: [facility] 10-14-2023 14:40-0400 Systolic blood pressure 153 mm[Hg] Lars Silva DO Work Phone: [facility] 07-05-2023 11:19-0500 Body temperature 98.49 [degF] Bijan Cole MD Work Phone: [facility] 07-05-2023 11:19-0500 Body weight 71.31 kg Bijan Cole MD Work Phone: [facility] 07-05-2023 11:19-0500 Diastolic blood pressure 80 mm[Hg] Bijan Cole MD Work Phone: [facility] 07-05-2023 11:19-0500 Heart rate 90 /min Bijan Cole MD Work Phone: [facility] 01-01-2024 11:19-0500 Respiratory rate 20 /min Bijan Cole MD Work Phone: [facility] 07-05-2023 11:19-0500 SaO2% (BldA) [Mass fraction] 98 % Bijan Cole MD Work Phone: [facility] 07-05-2023 11:19-0500 Systolic blood pressure 158 mm[Hg] Bijan Cole MD Work Phone: [facility] 01-07-2023 08:44-0400 Body weight 65.77 kg NA Le PA-C Work Phone: [facility] 01-07-2023 08:44-0400 Diastolic blood pressure 72 mm[Hg] NA Le PA-C Work Phone: [facility] 01-07-2023 08:44-0400 Heart rate 70 /min NA Le PA-C Work Phone: [facility] 01-07-2023 08:44-0400 Respiratory rate 16 /min NA Le PA-C Work Phone: [facility] 01-07-2023 08:44-0400 SaO2% (BldA) [Mass fraction] 96 % NA Le PA-C Work Phone: [facility] 01-07-2023 08:44-0400 Systolic blood pressure 136 mm[Hg] NA Le PA-C Work Phone: [facility] 10-06-2022 09:13-0400 Body weight 66.22 kg NA Le PA-C Work Phone: [facility] 10-06-2022 09:13-0400 Diastolic blood pressure 68 mm[Hg] NA Le PA-C Work Phone: [facility] 10-06-2022 09:13-0400 Heart rate 81 /min NA Le PA-C Work Phone: [facility] 10-06-2022 09:13-0400 Respiratory rate 18 /min NA Le PA-C Work Phone: [facility] 10-06-2022 09:13-0400 SaO2% (BldA) [Mass fraction] 96 % NA Le PA-C Work Phone: [facility] 10-06-2022 09:13-0400 Systolic blood pressure 144 mm[Hg] NA Le PA-C Work Phone: [facility] 09-28-2022 09:15-0400 Body height 156.2 cm Carla Burdick MD Work Phone: [facility] 09-28-2022 09:15-0400 Body weight 68.4 kg Carla Burdick MD Work Phone: [facility] 09-28-2022 09:15-0400 Diastolic blood pressure 74 mm[Hg] Carla Burdick MD Work Phone: [facility] 09-28-2022 09:15-0400 Heart rate 78 /min Carla Burdick MD Work Phone: [facility] 09-28-2022 09:15-0400 Systolic blood pressure 128 mm[Hg] Carla Burdick MD Work Phone: [facility] 07-07-2022 08:56-0500 Body weight 65.32 kg NA Le PA-C Work Phone: [facility] 07-07-2022 08:56-0500 Diastolic blood pressure 62 mm[Hg] NA Le PA-C Work Phone: [facility] 07-07-2022 08:56-0500 Heart rate 74 /min NA Le PA-C Work Phone: [facility] 07-07-2022 08:56-0500 Respiratory rate 16 /min NA Le PA-C Work Phone: [facility] 07-07-2022 08:56-0500 SaO2% (BldA) [Mass fraction] 97 % NA Le PA-C Work Phone: [facility] 07-07-2022 08:56-0500 Systolic blood pressure 148 mm[Hg] NA Le PA-C Work Phone: [facility] 05-14-2022 09:27-0500 Body temperature 98.91 [degF] Sonny Lund MD Work Phone: [facility] 05-14-2022 09:27-0500 Body weight 68.49 kg Sonny Lund MD Work Phone: [facility] 05-14-2022 09:27-0500 Diastolic blood pressure 72 mm[Hg] Sonny Lund MD Work Phone: [facility] 05-14-2022 09:27-0500 Heart rate 84 /min Sonny Lund MD Work Phone: [facility] 05-14-2022 09:27-0500 Respiratory rate 16 /min Sonny Lund MD Work Phone: [facility] 05-14-2022 09:27-0500 SaO2% (BldA) [Mass fraction] 98 % Sonny Lund MD Work Phone: [facility] 05-14-2022 09:27-0500 Systolic blood pressure 147 mm[Hg] Sonny Lund MD Work Phone: [facility] 04-28-2022 09:09-0400 Body temperature 97.3 [degF] Treatment Wstr Work Phone: [facility] 04-28-2022 09:09-0400 Diastolic blood pressure 62 mm[Hg] Treatment Wstr Work Phone: [facility] 04-28-2022 09:09-0400 Heart rate 83 /min Treatment Wstr Work Phone: [facility] 04-28-2022 09:09-0400 Systolic blood pressure 122 mm[Hg] Treatment Wstr Work Phone: [facility] 04-22-2022 10:54-0400 Body temperature 97.11 [degF] Treatment Wstr Work Phone: [facility] 04-22-2022 10:54-0400 Diastolic blood pressure 68 mm[Hg] Treatment Wstr Work Phone: [facility] 04-22-2022 10:54-0400 Heart rate 102 /min Treatment Wstr Work Phone: [facility] 04-22-2022 10:54-0400 Systolic blood pressure 135 mm[Hg] Treatment Wstr Work Phone: [facility] 04-20-2022 09:30-0400 Body temperature 97.9 [degF] Treatment Wstr Work Phone: [facility] 04-20-2022 09:30-0400 Diastolic blood pressure 61 mm[Hg] Treatment Wstr Work Phone: [facility] 04-20-2022 09:30-0400 Heart rate 98 /min Treatment Wstr Work Phone: [facility] 04-20-2022 09:30-0400 Systolic blood pressure 130 mm[Hg] Treatment Wstr Work Phone: [facility] 04-17-2022 15:31-0400 Body temperature 98.1 [degF] Treatment Wstr Work Phone: [facility] 04-17-2022 15:31-0400 Diastolic blood pressure 66 mm[Hg] Treatment Wstr Work Phone: [facility] 04-17-2022 15:31-0400 Heart rate 97 /min Treatment Wstr Work Phone: [facility] 04-17-2022 15:31-0400 SaO2% (BldA) [Mass fraction] 99 % Treatment Wstr Work Phone: [facility] 04-17-2022 15:31-0400 Systolic blood pressure 137 mm[Hg] Treatment Wstr Work Phone: [facility] 04-09-2022 11:33-0400 Body height 161.3 cm Brayan Chicas MD Work Phone: [facility] 04-09-2022 11:33-0400 Body weight 67.59 kg Brayan Chicas MD Work Phone: [facility] 04-06-2022 10:44-0400 Body weight 66.68 kg NA Le PA-C Work Phone: [facility] 04-06-2022 10:44-0400 Diastolic blood pressure 72 mm[Hg] NA Le PA-C Work Phone: [facility] 04-06-2022 10:44-0400 Heart rate 95 /min NA Le PA-C Work Phone: [facility] 04-06-2022 10:44-0400 Respiratory rate 24 /min NA Le PA-C Work Phone: [facility] 04-06-2022 10:44-0400 SaO2% (BldA) [Mass fraction] 99 % NA Le PA-C Work Phone: [facility] 04-06-2022 10:44-0400 Systolic blood pressure 148 mm[Hg] NA Le PA-C Work Phone: [facility] 03-30-2022 08:49-0400 Body weight 65.32 kg Carla Burdick MD Work Phone: [facility] 03-30-2022 08:49-0400 Diastolic blood pressure 64 mm[Hg] Carla Burdick MD Work Phone: [facility] 03-30-2022 08:49-0400 Heart rate 90 /min Carla Burdick MD Work Phone: [facility] 03-30-2022 08:49-0400 SaO2% (BldA) [Mass fraction] 100 % Carla Burdick MD Work Phone: [facility] 03-30-2022 08:49-0400 Systolic blood pressure 144 mm[Hg] Carla Burdick MD Work Phone: [facility] 03-19-2022 11:07-0400 Body weight 69.85 kg NA Le PA-C Work Phone: [facility] 03-19-2022 11:07-0400 Diastolic blood pressure 66 mm[Hg] NA Le PA-C Work Phone: [facility] 03-19-2022 11:07-0400 Heart rate 112 /min NA Le PA-C Work Phone: [facility] 03-19-2022 11:07-0400 Respiratory rate 24 /min NA Le PA-C Work Phone: [facility] 03-19-2022 11:07-0400 SaO2% (BldA) [Mass fraction] 97 % NA Le PA-C Work Phone: [facility] 03-19-2022 11:07-0400 Systolic blood pressure 148 mm[Hg] NA Le PA-C Work Phone: [facility] 03-03-2022 13:45-0400 Body height 160 cm Radha Brian EDGE STRIPPER.MANAGER [employer]ULATORY Work Phone: [facility] 03-03-2022 13:45-0400 Body weight 63.5 kg Radha Brian EDGE STRIPPER.MANAGER REGULATORY Work Phone: [facility] 03-03-2022 13:45-0400 Diastolic blood pressure 72 mm[Hg] Radha Brian EDGE STRIPPER.MANAGER REGULATORY Work Phone: [facility] 03-03-2022 13:45-0400 Heart rate 98 /min Radha Brian EDGE STRIPPER.MANAGER REGULATORY Work Phone: [facility] 03-03-2022 13:45-0400 Systolic blood pressure 141 mm[Hg] Radha Brian EDGE STRIPPER.MANAGER REGULATORY Work Phone: [facility] 03-03-2022 13:00-0400 Diastolic blood pressure 62 mm[Hg] [facility] 03-03-2022 13:00-0400 Heart rate 105 /min [facility] 03-03-2022 13:00-0400 SaO2% (BldA) [Mass fraction] 94 % [facility] 03-03-2022 13:00-0400 Systolic blood pressure 129 mm[Hg] [facility] 03-03-2022 12:50-0400 Respiratory rate 12 /min [facility] 03-03-2022 10:56-0400 Body temperature 97.5 [degF] [facility] 02-20-2022 09:31-0400 Body weight 64.86 kg NA Le PA-C Work Phone: [facility] 02-20-2022 09:31-0400 Diastolic blood pressure 78 mm[Hg] NA Le PA-C Work Phone: [facility] 02-20-2022 09:31-0400 Heart rate 116 /min NA Le PA-C Work Phone: [facility] 02-20-2022 09:31-0400 Respiratory rate 16 /min NA Le PA-C Work Phone: [facility] 02-20-2022 09:31-0400 SaO2% (BldA) [Mass fraction] 100 % NA Le PA-C Work Phone: [facility] 02-20-2022 09:31-0400 Systolic blood pressure 132 mm[Hg] NA Le PA-C Work Phone: [facility] 01-16-2022 [id number] Body temperature 98.49 [degF] NA Le PA-C Work Phone: [facility] 01-16-2022 [id number] Body weight 64.41 kg NA Le PA-C Work Phone: [facility] 01-16-2022 10:26-0400 Diastolic blood pressure 72 mm[Hg] NA Le PA-C Work Phone: [facility] 01-16-2022 10:26-0400 Heart rate 92 /min NA Le PA-C Work Phone: [facility] 01-16-2022 10:26-0400 Respiratory rate 16 /min NA Le PA-C Work Phone: [facility] 01-16-2022 10:26-0400 SaO2% (BldA) [Mass fraction] 98 % NA Le PA-C Work Phone: [facility] 01-16-2022 10:26-0400 Systolic blood pressure 138 mm[Hg] CARMELINA Le PA-C Work Phone: [facility] 01-09-2022 14:25-0400 Diastolic blood pressure 66 mm[Hg] Emilia Diallo MD Work Phone: [facility] 01-09-2022 14:25-0400 Heart rate 95 /min Emilia Diallo MD Work Phone: [facility] 01-09-2022 14:25-0400 SaO2% (BldA) [Mass fraction] 99 % Emilia Diallo MD Work Phone: [facility] 01-09-2022 14:25-0400 Systolic blood pressure 133 mm[Hg] Emilia Diallo MD Work Phone: [facility] 01-02-2022 11:15-0400 Diastolic blood pressure 60 mm[Hg] Chai Encinas MD Work Phone: [facility] 01-02-2022 11:15-0400 Heart rate 89 /min Chai Encinas MD Work Phone: [facility] 01-02-2022 11:15-0400 SaO2% (BldA) [Mass fraction] 97 % Chai Encinas MD Work Phone: [facility] 01-02-2022 11:15-0400 Systolic blood pressure 134 mm[Hg] Chai Encinas MD Work Phone: [facility] 01-02-2022 11:00-0400 Respiratory rate 20 /min Chai Encinas MD Work Phone: [facility] 01-02-2022 10:42-0400 Body temperature 97.9 [degF] Chai Encinas MD Work Phone: [facility] 01-02-2022 08:59-0400 Body height 160 cm Chai Encinas MD Work Phone: [facility] 01-02-2022 08:59-0400 Body weight 65.77 kg Chai Encnias MD Work Phone: [facility] 01-01-2022 09:45-0400 Body height 160 cm Chai Encinas MD Work Phone: [facility] 01-01-2022 09:45-0400 Body temperature 97 [degF] Chai Encinas MD Work Phone: [facility] 01-01-2022 09:45-0400 Body weight 65.77 kg Chai Encinas MD Work Phone: [facility] 01-01-2022 09:45-0400 Diastolic blood pressure 52 mm[Hg] Chai Encinas MD Work Phone: [facility] 01-01-2022 09:45-0400 Heart rate 100 /min Chai Encinas MD Work Phone: [facility] 01-01-2022 09:45-0400 SaO2% (BldA) [Mass fraction] 98 % Chai Encinas MD Work Phone: [facility] 01-01-2022 09:45-0400 Systolic blood pressure 122 mm[Hg] Chai Encinas MD Work Phone: [facility] 12-30-2021 13:16-0400 Body temperature 96.9 [degF] [facility] Work Phone: 12-30-2021 13:16-0400 Diastolic blood pressure 54 mm[Hg] [facility] Work Phone: 12-30-2021 13:16-0400 Heart rate 73 /min [facility] Work Phone: 12-30-2021 13:16-0400 Respiratory rate 16 /min [facility] Work Phone: 12-30-2021 13:16-0400 SaO2% (BldA) [Mass fraction] 97 % [facility] Work Phone: 12-30-2021 13:16-0400 Systolic blood pressure 113 mm[Hg] [facility] Work Phone: 12-30-2021 08:17-0400 Body height 160.02 cm [facility] Work Phone: 12-15-2021 09:08-0400 Body temperature 98.2 [degF] NA Le PA-C Work Phone: [facility] 12-15-2021 09:08-0400 Body weight 66.04 kg NA Le PA-C Work Phone: [facility] 12-15-2021 09:08-0400 Diastolic blood pressure 64 mm[Hg] NA Le PA-C Work Phone: [facility] 12-15-2021 09:08-0400 Heart rate 97 /min NA Le PA-C Work Phone: [facility] 12-15-2021 09:08-0400 Respiratory rate 18 /min NA Le PA-C Work Phone: [facility] 12-15-2021 09:08-0400 SaO2% (BldA) [Mass fraction] 99 % NA Le PA-C Work Phone: [facility] 12-15-2021 09:08-0400 Systolic blood pressure 118 mm[Hg] NA Le PA-C Work Phone: [facility] 11-26-2021 09:54-0400 Body height 160 cm Na Perkinsper EDGE STRIPPER.CN P Work Phone: [facility] 11-26-2021 09:54-0400 Body weight 65.77 kg Na James EDGE STRIPPER.CN P Work Phone: [facility] [facility]-2019 [id number] BMI (Body Mass Index) 28.62 kg/m2 [facility] [employer] 01-19-2019 10:25-0400 Body weight 72.12 kg [facility] [employer] 01-19-2019 10:25-0400 BP Diastolic 64 mm[Hg] [facility] [employer] 01-19-2019 10:25-0400 BP Systolic 134 mm[Hg] [facility] [employer] 01-19-2019 10:25-0400 Height 158.8 cm [facility] 01-19-2019 10: Pulse (Heart Rate) 100 /min [facility] [facility] 01-19-2019 10: Pulse Oximetry 99 % [facility] [facility] 01[facility]19-2019 10:25 Respiratory Rate 16 /min [facility] [facility] Encounters Encounter Date Encounter Type Care Provider Facility Start: 01-10-2025 Non-[facility] / [facility] Work [facility]: Start: 01-09-2025 [facility] / [facility] Start: 01-08-2025 Non-patient / Non-visit Dr. Luis Stovall [facility] In[facility] Work Phone: Start: 01-08-2025 ambulatory Deysi Collazo NP Facil ity:[facility] Start: 01-08-2025 Non-patient / Non-visit Dr. Jose UGARTE [facility] Start: 01-08-2025 ambulatory Deysi Collazo BACK TENDER CYLINDER Facil ity:[facility] Start: 01-08-2025 Non-patient / Non-visit Dr. Abundio wells MD -[facility] Start: 01-07-2025 ambulatory Teo Brooklet Facility:[facility] Start: 01-07-2025 End: 01-11-2025 Evaluation and management of inpatient Dr. Radha Heller MD -Progressive Care Unit Work Phone: Start: 01-01-2025 End: 01-01-2025 Patient encounter procedure Carla Brudick MD Work Phone: Cardiology Comment on above: Chronic diastolic (c ongestive) heart failure (HCC) (Primary Dx); History of prosthetic aortic valve replacement; Paroxysmal atrial fibrillation (HCC); PAD (peripheral artery disease); Primary hypertension; Acute on chronic diastolic congestive heart failure (HCC); Hyperlipidemia with target LDL less than 70 Start: 01-01-2025 End: 01-01-2025 ambulatory CARLA BURDICK Facility:[facility] Start: 12-26-2024 End: 12-26-2024 Orders Only Albin Gu APRN.MANAGER REGULATORY Work Phone: Cardiology Comment on above: Returning Patient's Call Start: 12-20-2024 End: 12-20-2024 Patient encounter procedure Lars Silva DO Work Phone: Vascular Surgery Comment on above: Superior mesenteric artery stenosis (HCC) (Primary Dx) Start: 12-20-2024 End: 12-20-2024 ambulatory LARS SILVA Facility:[facility] Start: 12-19-2024 End: 12-19-2024 Patient encounter procedure Albin Gu APRN.MANAGER REGULATORY Work Phone: Cardiology Comment on above: Chronic diastolic co ngestive heart failure (HCC) (Primary Dx); Primary hypertension; SSS (sick sinus syndrome) (HCC); Longstanding persistent atrial fibrillation (HCC) Start: 12-19-2024 End: 12-19-2024 ambulatory ALBIN GU Facility:[facility] Start: 12-13-2024 End: 12-13-2024 Telephone encounter Deysi Collazo APRN.CNP Work Phone: [facility] Comment on above: Transition Of Care Start: 12-11-2024 End: 12-11-2024 Telephone encounter Deysi Collazo APRN.CNP Work Phone: [address] [place] [address] Start: 12-10-2024 End: 12-12-2024 Evaluation and management of inpatient DEYSI COLLAZO Facility:[facility] Start: 12-01-2024 End: 12-01-2024 ambulatory CARLA BURDICK Facility:[facility] Start: 11-20-2024 End: 11-20-2024 Patient encounter procedure Carla Burdick MD Work Phone: Cardiology Comment on above: History of prostheti c aortic valve replacement (Primary Dx); Chronic diastolic (congestive) heart failure (HCC); Ascending aorta dilatation; Longstanding persistent atrial fibrillation (HCC); PAD (peripheral artery disease); Primary hypertension; Hyperlipidemia with target LDL less than 70; Acute mesenteric ischemia (HCC) Start: 11-20-2024 End: 11-20-2024 ambulatory CARLA BURDICK Facility:[facility] Start: 11-15-2024 End: 11-15-2024 Follow-up encounter Carla Burdick MD Work Phone: [facility] Cardiology [place] Start: 11-13-2024 End: 11-13-2024 ambulatory DEYSIArelis COLLAZO Facility:[facility] Start: 11-06-2024 End: 11-06-2024 ambulatory CARLA BURDICK Facility:[facility] Start: 11-06-2024 End: 11-06-2024 Patient encounter procedure [...] Start: 11-03-2024 End: 11-03-2024 ambulatory ALBIN GU Facility:[facility] Start: 11-03-2024 End: 11-03-2024 Patient encounter procedure Albin Gu APRN.CNP Work Phone: Cardiology Comment on above: Chronic diastolic co ngestive heart failure (HCC) (Primary Dx); Primary hypertension; SSS (sick sinus syndrome) (HCC); Longstanding persistent atrial fibrillation (HCC); Stage 3b chronic kidney disease (HCC) Start: 11-03-2024 End: 11-03-2024 ambulatory ALBIN GU Facility:[facility] Start: 10-31-2024 End: 12-31-2024 Follow-up encounter Shaye Domingo APRN.CNP Work Phone: [facility] [place] Start: 10-31-2024 End: 10-31-2024 ambulatory SHAYE DOMINGO Facility:[facility] Start: 10-31-2024 End: 10-31-2024 Office outpatient visit 25 minutes Shaye Domingo APRN.CNP Work Phone: [facility] [place] Comment on above: Acute mesenteric isc hemia [...] 10-12-2024 End: 10-12-2024 Telephone encounter Albin Gu APRN.MANAGER REGULATORY Work Phone: Cardiology Comment on above: Patient Update Start: 07-31-2024 End: 07-31-2024 Telephone encounter Melida Koo APRN.MANAGER REGULATORY Work Phone: Cardiology Start: 07-07-2024 End: 07-07-2024 ambulatory [facility] Facility:[facility] Start: 07-07-2024 End: 07-07-2024 ambulatory [facility] Facility:[facility] Start: 04-07-2024 End: 04-07-2024 Patient encounter procedure Albin Gu APRN.MANAGER REGULATORY Work Phone: Cardiology Comment on above: Chronic diastolic co ngestive heart failure (HCC) (Primary Dx); Primary hypertension; SSS (sick sinus syndrome) (HCC); Longstanding persistent atrial fibrillation (HCC) Start: 04-07-2024 End: 04-07-2024 ambulatory ALBIN GU Facility:[facility] Start: 03-14-2024 End: 03-14-2024 Refill Melida Koo APRN.MANAGER REGULATORY Work Phone: Cardiology Start: 02-28-2024 End: 02-28-2024 ambulatory Mars Hernandez [facility] Start: 02-21-2024 End: 02-21-2024 Telephone encounter Melida Koo APRN.MANAGER REGULATORY Work Phone: Cardiology Start: 02-17-2024 ambulatory Carla dempsey MD Work Phone: Cardiology Comment on above: NT Pro BNP Start: 02-15-2024 End: 02-15-2024 ambulatory DIANNE LE Facility:[facility] Start: 02-07-2024 Telephone encounter Melida Rodrigues denise SALINASN.MANAGER REGULATORY Work Phone: Cardiology Comment on above: Recheck Chronic diastolic co ngestive heart failure (HCC) (Primary Dx) Start: 02-04-2024 Telephone encounter Albin amaro APRN.MANAGER REGULATORY Work Phone: Cardiology Comment on above: Appointment Results Start: 02-03-2024 End: 02-03-2024 ambulatory YING TORRES Facility:[facility] Start: 01-17-2024 End: 01-17-2024 ambulatory DIANNE LE Facility:[facility] Start: 01-17-2024 End: 01-17-2024 Patient encounter procedure [...] 12-07-2023 Office outpatient visit 15 minutes Deysi Collazo APRN.MANAGER REGULATORY Work Phone: [facility] Comment on above: URI, acute (Primary Dx) Start: 11-26-2023 ambulatory Valentine Meneses RN Ambulato ry Care Management Comment on above: YONG SAM RN ( ED Utilization Review per request of payer) Start: 11-25-2023 End: 11-25-2023 Patient encounter procedure Albin Gu APRN.MANAGER REGULATORY Work Phone: Cardiology Comment on above: Chronic diastolic co ngestive heart failure (HCC) (Primary Dx); Primary hypertension; SSS (sick sinus syndrome) (HCC); Longstanding persistent atrial fibrillation (HCC); Acute systolic CHF (congestive heart failure) (HCC) Start: 11-23-2023 ambulatory Ralph Zelaya Work Phone: Hematology/Oncology Comment on above: Results Start: 11-22-2023 End: 11-22-2023 Office outpatient visit 25 minutes Deysi Collazo APRN.MANAGER REGULATORY Work Phone: [facility] Comment on above: Acute systolic CHF ( congestive heart failure) (HCC) (Primary Dx); Hyponatremia; Hypokalemia Start: 11-19-2023 Telephone encounter Albin amaro EDGE STRIPPER.MANAGER REGULATORY Work Phone: Cardiology Comment on above: Patient Question Start: 11-17-2023 Telephone encounter Gwen Valentine RN Cardiology Comment on above: 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 Utilization Review per Payer Request.) Start: 11-15-2023 Telephone encounter Nara Malone RN NOC Comment on above: Transition Of Care Start: 11-12-2023 Orders Only Ying Enoch saenz EDGE STRIPPER.MANAGER REGULATORY Work Phone: Cardiology Comment on above: Stage 3 chronic kidn ey disease, unspecified whether stage 3a or 3b CKD (HCC) (Primary Dx) Initial Consult (HEA RT FAILURE [id number] ) Start: 11-08-2023 End: 11-08-2023 Emergency department patient visit Doreen LE Facility:[facility] Start: 11-08-2023 End: 11-08-2023 Patient encounter procedure Bere Boykin APRN.MANAGER REGULATORY Work Phone: Cardiology Comment on above: Acute HFrEF (heart f ailure with reduced ejection fraction) (HCC) (Primary Dx); VHD (valvular heart disease); Nonrheumatic tricuspid valve regurgitation; Nonrheumatic mitral valve regurgitation; Persistent atrial fibrillation (HCC); Pacemaker Start: 11-04-2023 End: 11-04-2023 Patient encounter procedure Doreen Le PA-C Work Phone: [facility] [place] Comment on above: Acute systolic CHF ( [...] Doreen de la cruz PA-C Work Phone: [facility] [place] Comment on above: moving forward Start: 11-02-2023 E-mail encounter fro m caregiver Doreen Le PA-C Work Phone: [facility] Start: 11-02-2023 Telephone encounter Doreen Le PA-C Work Phone: [facility] Comment on above: Results; Orders Start: 10-31-2023 Telephone encounter Doreen Le PA-C Work Phone: [facility] [place] Start: 10-19-2023 End: 10-19-2023 Patient encounter procedure Lars Silva DO Work Phone: Vascular Surgery Comment on above: Venous insufficiency (Primary Dx) Start: 10-18-2023 End: 10-18-2023 Subsequent hospital visit by physician [facility] Work Phone: Radiology Comment on above: Acute systolic CHF ( congestive heart failure) (HCC) [I50.21] Start: 10-18-2023 End: 10-18-2023 Patient encounter procedure Doreen Le PA-C Work Phone: [facility] [place] Comment on above: SSS (sick sinus synd juliana) (HCC) (Primary Dx); Paroxysmal atrial fibrillation (HCC); S/P placement of cardiac pacemaker; 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); Dilated cardiomyopathy (HCC); Ascending aorta dilatation (HCC); Pedro aneurysm of anterior communicating artery; History of pulmonary embolism; Presence of Watchman left atrial appendage closure device; Platelet inhibition due to Plavix; Primary hypertension; Hyperlipidemia with target LDL less than 70; Heme + stool; Epigastric pain; Blood loss anemia; Acute systolic CHF (congestive heart failure) (HCC); Vitamin D deficiency Start: 10-15-2023 Telephone encounter Carla Burdick MD Work Phone: Cardiology Comment on above: Patient Update Start: 10-14-2023 End: 10-14-2023 Patient encounter procedure Lars Silva DO Work Phone: Vascular Surgery Comment on above: Venous insufficiency (Primary Dx) Start: 10-11-2023 Follow-up encounter Yin Joseph MD Work Phone: [facility] Start: 10-11-2023 Pacemaker Remote F/U Yin Joseph MD Work Phone: [facility] Start: 07-05-2023 End: 07-05-2023 Patient encounter procedure Bijan Cole MD Work Phone: [facility] Comment on above: Influenza-like illne ss (Primary Dx) Start: 06-07-2023 ambulatory M Claudia Dar on PA-C Work Phone: [facility] [place] Comment on above: Rt. Foot Bone Fractu re Start: 06-01-2023 End: 06-01-2023 Subsequent hospital visit by physician [facility] Work Phone: Radiology Comment on above: Closed nondisplaced fracture of fifth metatarsal bone of right foot with routine healing, subsequent encounter [S92.354D] Start: 04-30-2023 End: 04-30-2023 Subsequent hospital visit by physician [facility] (I-Stat) Work Phone: Cat Scan Comment on above: Lung nodule, solitar y [R91.1] Start: 04-12-2023 End: 04-12-2023 Subsequent hospital visit by physician Xr [facility] Work Phone: Radiology Comment on above: Pain of right middle finger [M79.644] Start: 03-23-2023 Follow-up encounter Yin Joseph MD Work Phone: [facility] Start: 03-23-2023 Pacemaker Remote F/U Yin Joseph MD Work Phone: [facility] Start: 03-15-2023 Refill Doreen Claudia Dar de la cruz PA-C Work Phone: [facility] Comment on above: Refill Request Start: 01-28-2023 Telephone encounter Doreen Claudia Le PA-C Work Phone: [facility] [place] Comment on above: Appointment Start: 01-08-2023 Telephone encounter Doreen Claudia Le PA-C Work Phone: [facility] Comment on above: Orders Start: 01-07-2023 End: 01-07-2023 Patient encounter procedure Doreen Claudia Le PA-C Work Phone: [facility] Comment on above: Bilateral carotid ar marcelo stenosis (Primary Dx); 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 artery of both lower extremities with intermittent claudication ([facility]); 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HCC); Pain in both lower legs; Iron 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; Iron malabsorption; S/P placement of cardiac pacemaker; SSS (sick sinus syndrome) ([facility]); 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); Dilated cardiomyopathy (HCC); Ascending aorta dilatation ([facility]); H/O rheumatic heart disease; History of prosthetic aortic valve replacement; Paroxysmal atrial fibrillation ([facility]); History of pulmonary embolism; Presence of Watchman [...] Follow-up encounter Yin Joseph MD Work Phone: [facility] Start: 12-22-2022 Pacemaker Remote F/U Yin Joseph MD Work Phone: [facility] Start: 12-10-2022 ambulatory Doreen LE [facility] ty:[facility] Start: 10-06-2022 End: 10-06-2022 Patient encounter procedure Doreen Le PA-C Work Phone: [facility] Comment on above: S/P placement of [...] End: 10-05-2022 Subsequent hospital visit by physician [facility] [employer] 2 Work Phone: Radiology Comment [...] H/O rheumatic heart disease; Paroxysmal atrial fibrillation (HCC); Ascending aorta dilatation (HCC); Dilated cardiomyopathy (HCC); 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); SSS (sick sinus syndrome) (HCC); S/P placement of cardiac pacemaker; PAD (peripheral artery disease) ([facility]); Hyperlipidemia with target LDL less than 70 Start: 09-21-2022 Follow-up encounter Yin Joseph MD Work Phone: [facility] Start: 09-21-2022 Pacemaker Remote F/U Yin Joseph MD Work Phone: [facility] Start: 08-30-2022 Refill Doreen de la cruz PA-C Work Phone: [facility] [place] Comment on above: Refill Request Start: 07-22-2022 Telephone encounter Research C oordinator Work Phone: Cardiology Comment on above: Research (IRB [id number]) Start: 07-08-2022 Telephone encounter Doreen KING-Ivett Work Phone: [facility] Comment on above: Information Start: 07-07-2022 End: 07-07-2022 Patient encounter procedure Doreen Le PA-C Work Phone: [facility] [place] Comment on above: H/O rheumatic heart disease (Primary Dx); Aortic prosthetic valve regurgitation, subsequent encounter; SSS (sick sinus syndrome) ([facility]); Atrial fibrillation, unspecified type ([facility]); Presence of Watchman left atrial appendage closure device; Chronic combined systolic and diastolic CHF (congestive heart failure) ([facility]); S/P placement of cardiac pacemaker; Dilated cardiomyopathy ([facility]); Ascending aorta dilatation ([facility]); History of pulmonary embolism; Platelet inhibition due to Plavix; Primary hypertension; Hyperlipidemia with target LDL less than 70; Pedro aneurysm of anterior communicating artery; Stage 3b chronic kidney disease ([facility]); Type 2 diabetes mellitus with diabetic peripheral angiopathy without gangrene, without long-term current use of insulin ([facility]); Renal mass, right; Anemia, blood loss; Intracranial aneurysm; Spondylolisthesis at L4-L5 level; Nonruptured cerebral aneurysm; Paroxysmal atrial fibrillation (HCC); Peripheral artery disease ([facility]) Start: 06-23-2022 Follow-up encounter Yin Joseph MD Work Phone: [facility] Start: 06-23-2022 Pacemaker Remote F/U Yin Joseph MD Work Phone: [facility] Start: 05-23-2022 Refill Sonny Lund MD Work Phone: Hematology/Oncology Comment on above: Refill Request; Refi ll Request Start: 05-14-2022 End: 05-14-2022 ambulatory Sonny Lund MD Work Phone: Hematology/Oncology Comment on above: Iron deficiency anem ia secondary to inadequate dietary iron intake (Primary Dx); Chronic renal failure, stage 3b (HCC) Start: 05-14-2022 End: 05-14-2022 Patient encounter procedure Sonny Lund MD Work Phone: [facility] Start: 04-28-2022 End: 04-28-2022 ambulatory Treatment Rm [address] [facility] [employer] Techn[employer] Work Phone: Hematology/Oncology Comment on above: Iron deficiency anem ia secondary to inadequate dietary iron intake (Primary Dx); Iron malabsorption Start: 04-22-2022 Refill Carla dempsey MD Work Phone: Cardiology Comment on above: Refill Request Start: 04-22-2022 End: 04-22-2022 ambulatory Treatment Rm [address] [facility] [employer] Work Phone: Hematology/Oncology Comment on above: Iron deficiency anem ia secondary to inadequate dietary iron intake (Primary Dx); Iron malabsorption Start: 04-20-2022 End: 04-20-2022 ambulatory Treatment Rm 9 [facility] [employer] Work Phone: Hematology/Oncology Comment on above: Iron deficiency anem ia secondary to inadequate dietary iron intake (Primary Dx); Iron malabsorption Start: 04-17-2022 End: 04-17-2022 ambulatory Treatment Rm 9 [facility] [employer] Work Phone: Hematology/Oncology Comment on above: Iron deficiency anem ia secondary to inadequate dietary iron intake (Primary Dx); Iron malabsorption Start: 04-09-2022 Telephone encounter Doreen Le PA-C Work Phone: [facility] Comment on above: Orders Start: 04-09-2022 End: [...] 04-06-2022 End: 04-06-2022 Patient encounter procedure Doreen Claudia Le PA-C Work Phone: [facility] [place] Comment on above: Hospital discharge [...] blood loss Start: 03-30-2022 Telephone encounter Doreen Claudia Le PA-C Work Phone: [facility] [place] Comment on above: Hospital Follow [...] Follow-up encounter Yin Joseph MD Work Phone: [facility] Start: 03-24-2022 Pacemaker Remote F/U Yin Joseph MD Work Phone: [facility] Start: 03-23-2022 Telephone encounter Brianna Betancourt Cardiology Comment on above: 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) Start: 03-21-2022 Telephone encounter Juan Diego Carroll MD Work Phone: [place] [facility] Comment on above: Appointment Start: 03-20-2022 Admission to establishment Sheridan manning RN Manager Product Design Management Comment on above: Transition Of Care ( [facility] readmission) Start: 03-20-2022 ambulatory Sheridan Cervantes RN IND [employer] Start: 03-19-2022 End: 03-19-2022 Patient encounter procedure Doreen Le PA-C Work Phone: [facility] Comment on above: 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); Aortic prosthetic valve regurgitation, subsequent encounter; H/O rheumatic heart disease; Atrial fibrillation, unspecified type (HCC); Presence of Watchman left atrial appendage closure device; Anemia, blood loss; Primary hypertension Start: 03-05-2022 ambulatory Sheridan Cervantes RN IND [employer] Comment on above: ABDIEL -; Watchmen Start: 03-05-2022 Follow-up encounter Sheridan Cervantes RN Manager Product Design Management Comment on above: Transition Of Care ( T[facility] follow up) Start: 03-03-2022 Follow-up encounter Lili Fay MD Work Phone: [facility] Start: 03-03-2022 End: 03-03-2022 Patient encounter procedure Lili Fay MD Work Phone: [facility] Comment on above: Longstanding persist ent atrial fibrillation (HCC) (Primary Dx); Presence of Watchman left atrial appendage closure device Paroxysmal atrial fi brillation (HCC); Presence of Watchman left atrial appendage closure device Start: 03-02-2022 Telephone encounter Saima England RN C ardiology Comment on above: Reminder Call (Trans esophageal Echo 03/03/22) Start: 02-25-2022 Patient Outreach Harika Tomas RN [facility] Comment on above: Transition Of Care ( [facility] D/C 02/24/2023 ) Start: 02-20-2022 End: 02-20-2022 Patient encounter procedure Doreen Claudia Le PA-C Work Phone: [facility] [place] Comment on above: Rectal bleeding (Nohemy stacie Dx); Anemia, blood loss; Diarrhea, unspecified type Start: 02-12-2022 Telephone encounter Chai Encinas MD Work Phone: General Surgery Comment on above: Procedure Follow Up (EGD completed on 01/02/2022) Start: 02-09-2022 Orders Only Candi Juarez nd EDGE STRIPPER.MANAGER REGULATORY Work Phone: Cardiology Comment on above: Paroxysmal atrial fi brillation (HCC) (Primary Dx); Presence of Watchman left atrial appendage closure device Start: 01-21-2022 Orders Only Candi Juarez nd EDGE STRIPPER.MANAGER REGULATORY Work Phone: Cardiology Comment on above: Paroxysmal atrial fi brillation (HCC) (Primary Dx) Patient Question (OR YUSUF FOR ABDIEL AND ECG) Start: 01-19-2022 Refill Emilia Domínguez i, MD Work Phone: Cardiology Comment on above: Refill Request Start: 01-16-2022 End: 01-16-2022 Patient encounter procedure Doreen Claudia Le PA-C Work Phone: [facility] [place] Comment on above: Atrial fibrillation, unspecified type (HCC) (Primary Dx); Presence of Watchman left atrial appendage closure device; Herpes zoster without complication Start: 01-09-2022 ambulatory Chandler villalobos MD Work Phone: Cardiology Comment on above: Patient Education (E PS-Watchman) Start: 01-09-2022 Follow-up encounter Randy Torrez MD Work Phone: [facility] Start: 01-09-2022 End: 01-09-2022 Patient encounter procedure Randy Torrez MD Work Phone: [facility] Comment on above: Atrial fibrillation, unspecified type (HCC) (Primary Dx); Gastrointestinal hemorrhage, unspecified gastrointestinal hemorrhage type; Anemia due to chronic blood loss; Other fatigue; SOB (shortness of breath) Start: 01-02-2022 End: 01-02-2022 Subsequent hospital visit by physician Chai Encinas MD Work Phone: [facility] Comment on above: Acute blood loss ane miguel [D62] Start: 01-01-2022 Telephone encounter Chai Encinas MD Work Phone: General Surgery Comment on above: 01-02-2022 egd medin a Start: 01-01-2022 End: 01-01-2022 Patient encounter procedure Chai Encinas MD Work Phone: General Surgery Comment on above: Anemia, blood loss ( Primary Dx); Acute blood loss anemia; Heme + stool; Sludge in gallbladder; Epigastric pain; Duodenal ulcer with hemorrhage Start: 12-30-2021 End: 12-30-2021 Patient encounter procedure [facility] Start: 12-29-2021 Telephone encounter Doreen Le PA-C Work Phone: [facility] Comment on above: Orders Start: 12-27-2021 ambulatory Doreen Dodge on PA-C Work Phone: [facility] Comment on above: Fatigue Start: 12-26-2021 ambulatory Doreen Dodge on PA-C Work Phone: [facility] Comment on above: Anemia - hemoglobin Start: 12-25-2021 Telephone encounter Chandler ortiz MD Work Phone: Cardiology Comment on above: Patient Question (ME DICATION DECREASE) Start: 12-19-2021 Telephone encounter Doreen Le PA-C Work Phone: [facility] Comment on above: Rectal Problem Start: 12-15-2021 End: 12-15-2021 Subsequent hospital visit by physician [facility] Nancy Work Phone: Radiology Comment on above: Ischial bursitis of left side [M70.72] Start: 12-15-2021 End: 12-15-2021 Patient encounter procedure M Claudia Le PA-C Work Phone: [facility] Comment on above: Renal mass, right (P rimary Dx); History of pulmonary embolism; Primary hypertension; Hyperlipidemia with target LDL less than 70; Dilated cardiomyopathy (HCC); SSS (sick sinus syndrome) (HCC); Chronic diastolic congestive heart failure (HCC); Ascending aorta dilatation (HCC); Pedro aneurysm of anterior communicating artery; Bilateral carotid artery stenosis; Chronic anticoagulation; Duodenal ulcer; Esophageal stenosis; Hypomagnesemia; Stage 3 chronic renal impairment associated with type 2 diabetes mellitus (HCC); History of ischemic colitis; Adenomatous polyp of descending colon; PAD (peripheral artery disease) (HCC); Type 2 diabetes mellitus with diabetic peripheral angiopathy without gangrene, without long-term current use of insulin (HCC); Heme + stool; Epigastric pain; Blood loss anemia; Chronic insomnia; Ischial bursitis of left side Start: 12-11-2021 Follow-up encounter Yin Joseph MD Work Phone: [facility] Start: 12-11-2021 Pacemaker Remote F/U Yin Joseph MD Work Phone: [facility] Department Start: 12-04-2021 Refill Chandler villalobos MD Work Phone: Cardiology Start: 12-03-2021 Telephone encounter Chandler ortiz MD Work Phone: Cardiology Comment on above: Patient Question (ME DICATION QUESTION - XARELTO) Start: 11-27-2021 Orders Only Na Ramirez APRN.MANAGER REGULATORY Work Phone: Vascular Surgery Comment on above: PAD (peripheral jennifer ry disease) ([facility]) (Primary Dx); PVD (peripheral vascular disease) ([facility]) Start: 11-26-2021 End: 11-26-2021 Office outpatient visit 25 minutes Na Ramirez APRN.MANAGER REGULATORY Work Phone: Vascular Surgery Comment on above: PAD (peripheral jennifer ry disease) ([facility]) (Primary Dx); Anemia due to chronic illness Start: 10-22-2021 Refill Yin Joseph MD Work Phone: Vascular Surgery Comment on above: Refill Request Start: 09-24-2021 Follow-up encounter Yin Joseph MD Work Phone: [facility] Start: 09-24-2021 Pacemaker Remote F/U Yin Joseph MD Work Phone: [facility] Department Start: 09-24-2021 Telephone encounter Chai Encinas MD Work Phone: General Surgery Comment on above: Appointment Cancelle d Start: 09-23-2021 Telephone encounter Chandler ortiz MD Work Phone: Cardiology Comment on above: Appointment Reschedu led (Due to change in physician's schedule) Start: 02-14-2021 End: 02-15-2021 ambulatory PROVIDER NOT IN SYSTEM [facility] Start: 01-23-2019 End: 01-23-2019 Refill Lizeth Mabry [facility] Start: 01-19-2019 End: 01-19-2019 Office outpatient visit 15 minutes Mars Chung Work Phone: [facility] Comment on above: Persistent atrial fi brillation (Primary Dx); prison current use of antiarrhythmic medical therapy; Moderate mitral regurgitation; Status post aortic valve replacement with tissue valve Start: 01-08-2014 End: 09-12-2021 Patient encounter status CARMELINA Le PA-C Work Phone: [facility] Procedures Date Procedure Procedure Detail Performing Clinician Start: 01-11-2025 Estimated creatinine clearance Deysi hernandez BACK TENDER CYLINDER-C Work Phone: Start: 01-07-2025 CT angiography of head and neck Deysi Collazo BACK TENDER [employer]-C Work Phone: Start: 01-07-2025 CT of head without contrast Deysi edouard BACK TENDER [employer]ER-C Work Phone: Start: 01-07-2025 X-ray of chest, PA and lateral views Deysi Collazo BACK TENDER [employer]ER-C Work Phone: Start: 01-07-2025 Estimated creatinine clearance Deysi hernandez BACK TENDER [employer]ER-C Work Phone: Start: 11-08-2023 Ecg routine ecg w/least 12 lds i&r only [facility] Provider Start: 10-18-2023 Radiologic exam chest 2 views M Claudia Le PA-Ayannah Work Phone: Start: 10-18-2023 Ecg routine ecg w/least 12 lds i&r only [facility] Provider Start: 10-11-2023 PACEMAKER REMOTE CHECK Yin Joseph MD Work Phone: Start: 07-05-2023 INFLUENZA A&B MOLECULAR (POC) Bijan Wei MD Work Phone: Start: 06-01-2023 Radex foot complete minimum 3 views Doreen Salvador mark [employer] Work Phone: Start: 04-30-2023 Ct thorax w/o contrast material M Haider graham Le PA-Ayannah Work Phone: Start: 04-12-2023 Radex fingr minimum 2 views Doreen Taylor John shaneon [employer] Work Phone: Start: 03-23-2023 PACEMAKER REMOTE CHECK [...] 2d w/wo m-mode rec f-up/lmtd Candi Beauchamp APRN.MANAGER REGULATORY Work Phone: Start: 01-09-2022 PACEMAKER CLINIC CHECK Randy Manzanares Shan M D Work Phone: Start: 01-09-2022 Antibody screen rbc [...] DTaP,Tdap,Td Vaccine (3 - Td or Tdap) [facility] Start: 12-12-2025 Complete blood count Hemoglobin/Hematocrit [facility] Start: 12-12-2025 Creatinine measurement Serum Creatinine [facility] Start: 12-11-2025 Complete blood count Hemoglobin/Hematocrit [facility] Start: 12-11-2025 Creatinine measurement Serum Creatinine [facility] Start: 12-11-2025 Hepatitis B screening Urine Albumin:Creatinine Ratio [facility] Start: 11-20-2025 Creatinine measurement Serum Creatinine [facility] Start: 11-13-2025 Creatinine measurement Serum Creatinine [facility] Start: 11-03-2025 BP Controlled (<130/80) BP Controlled (<130/80) [facility] Start: 11-03-2025 Creatinine measurement Serum Creatinine [facility] Start: 10-31-2025 Annual PCP Team Chronic Disease Visit Annual PCP Team Chronic Disease Visit [facility] Start: 10-31-2025 Complete blood count Hemoglobin/Hematocrit [facility] Start: 10-31-2025 Creatinine measurement Serum Creatinine [facility] Start: 10-10-2025 Complete blood count Hemoglobin/Hematocrit [facility] Start: 10-03-2025 Hepatitis B screening Urine Albumin:Creatinine Ratio [facility] Start: 10-02-2025 Hepatitis B surface antibody level LDL Cholesterol [facility] Start: 07-07-2025 Annual PCP Team Chronic Disease Visit Annual PCP Team Chronic Disease Visit [facility] Start: 07-07-2025 Anxiety Screening Anxiety Screening [facility] Comment on above: Postponed from 1963 (Declined at t his time) Start: 07-07-2025 Covid-19 Vaccine () Covid-19 Vaccine () [facility] Comment on above: Postponed from 03/05/2024 (Declined at t his time) Start: 07-07-2025 Creatinine measurement Serum Creatinine [facility] Start: 07-07-2025 Hepatitis B screening Urine Albumin:Creatinine Ratio [facility] Start: 04-26-2025 Glaucoma screening Dilated Retinal Exam [facility] Start: 04-22-2025 Hemoglobin A1c measurement HbA1C [facility] Start: 04-03-2025 Hemoglobin A1c measurement HbA1C [facility] Start: 03-26-2025 End: 03-26-2025 Patient encounter procedure 03/26/2025 10:00 AM EDT Office Visit Cardiology [address] [place] [address] Carla Burdick MD [address] [address] 4 month follow up - ECHO prior Cardiology Comment on above: 4 month follow up - ECHO prior Start: 03-19-2025 End: 03-19-2025 Patient encounter procedure 03/19/2025 1:50 PM EDT Office Visit Cardiology [address] [place] [address] ECHO Cardiology Comment on above: ECHO Start: 02-26-2025 End: 02-26-2025 Patient encounter procedure 02/26/2025 2:20 PM EDT Office Visit Cardiology [address] [place] [address] Carla Burdick MD [address] [place] [address] f/u Cardiology Comment on above: f/u Start: 02-02-2025 Creatinine measurement Serum Creatinine [facility] Start: 02-02-2025 Hepatitis B surface antibody level LDL Cholesterol [facility] Start: 01-23-2025 End: 01-23-2025 Patient encounter procedure 01/23/2025 10:00 AM EDT Office Visit Cardiology [address] [place] [address] Albin Gu APRN.MANAGER REGULATORY [address] [place] [address] CHF FOLLOW UP Cardiology Comment on above: CHF FOLLOW UP Start: 01-11-2025 Patient discharge [facility] Start: 01-10-2025 End: 01-10-2025 Patient encounter procedure [facility] [place] Comment on above: 6 month follow up (SHABBIR from Rey) 6 month follow up Start: 01-08-2025 Referral to tennis racket repairer [facility] Start: 01-08-2025 End: 01-08-2025 [facility] Start: 01-08-2025 Thyroid stimulating hormone measurement [facility] Start: 01-08-2025 Vital signs measurements [facility] Start: 01-08-2025 Cardiac monitoring [facility] Start: 01-08-2025 Catheterization of vein [facility] Start: 01-08-2025 Consultation [facility] Start: 01-08-2025 Elevation of head of bed [facility] Start: 01-08-2025 Exercises [facility] Start: 01-08-2025 Notification of physician [facility] Start: 01-08-2025 Patient referral to dietitian [facility] Start: 01-08-2025 Referral to occupational therapist [facility] Start: 01-08-2025 Referral to service [facility] Start: 01-08-2025 Speech therapy assessment [facility] Start: 01-08-2025 Tobacco use cessation education [facility] Start: 01-07-2025 Following clinical pathway protocol [facility] Start: 01-07-2025 Assessment of risk of venous thromboembolism [facility] Start: 01-07-2025 Care regimes management [facility] Start: 01-07-2025 Elevation of affected extremity [facility] Start: 01-07-2025 Inhalation therapy procedure [facility] Start: 01-07-2025 Insertion of catheter into peripheral vein [facility] Start: 01-07-2025 Measuring intake and output [facility] Start: 01-07-2025 Notification of physician [facility] Start: 01-07-2025 Patient education [facility] Start: 01-07-2025 Providing care according to standard [facility] Start: 01-07-2025 Provision of activity privileges [facility] Start: 01-07-2025 End: 01-07-2025 [facility] Start: 01-07-2025 Verification routine [facility] Start: 01-07-2025 Admission procedure [facility] Start: 01-07-2025 End: 01-07-2025 [facility] Start: 01-04-2025 Hemoglobin A1c measurement HbA1C [facility] Start: 01-01-2025 End: 04-02-2025 Basic metabolic 2000 panel - Serum or Plasma BASIC METABOLIC PANEL Lab Routine Chronic diastolic (congestive) heart failure (HCC) Expected: 01/01/2025, Expires: 04/02/2025 [facility] Comment on above: Expected: 01/01/2025, Expires: Start: 01-01-2025 End: 04-02-2025 Natriuretic peptide.B prohormone N-Terminal [Mass/volume] in Serum or Plasma NT PRO BNP Lab Routine Chronic diastolic (congestive) heart failure (HCC) Expected: 01/01/2025, Expires: 04/02/2025 [facility] Comment on above: Expected: 01/01/2025, Expires: Start: 01-01-2025 End: 01-01-2025 Patient encounter procedure 01/01/2025 11:00 AM EDT Office Visit Cardiology [address] [place] [address] Carla Burdick MD [address] [place] [address] 1 month follow up Cardiology Comment on above: 1 month follow up Start: 12-21-2024 End: 12-21-2024 Patient encounter procedure 12/21/2024 9:00 AM EDT Office Visit Cardiology [address] [place] [address] Albin Gu APRN.MANAGER REGULATORY [address] [place], [place] [id number] CHF Cardiology Comment on above: CHF Start: 12-20-2024 End: 12-20-2024 Patient encounter procedure Vascular Surgery Comment on above: MESENTERIC AND HOSPITAL FOLLOW UP Start: 12-19-2024 End: 03-20-2025 Basic metabolic 2000 panel - Serum or Plasma BASIC METABOLIC PANEL Lab Routine Chronic diastolic congestive heart failure (HCC) Expected: 12/19/2024, Expires: 03/20/2025 [facility] Work Phone: Comment on above: Expected: 12/19/2024, Expires: Start: 12-18-2024 End: 12-18-2024 Patient encounter procedure 12/18/2024 11:00 AM EDT Office Visit Cardiology [address] [place] [address] Albin Gu APRN.MANAGER REGULATORY [address] [place], [place] [id number] CHF Cardiology Comment on above: CHF Start: 12-11-2024 End: 12-11-2024 Patient encounter procedure 12/11/2024 2:30 PM EDT Office Visit Cardiology [address] [place], [place] [id number] Allison Toledo APRN.MANAGER REGULATORY [address] [facility] [facility] [place] [address] follow u Cardiology Comment on above: follow u Start: 12-06-2024 Annual PCP Team Chronic Disease Visit Annual PCP Team Chronic Disease Visit [facility] Start: 12-06-2024 BP Controlled (<130/80) BP Controlled (<130/80) [facility] in Start: 12-04-2024 End: 12-04-2024 Patient encounter procedure 12/04/2024 2:00 PM EDT Office Visit Cardiology [address] [place], [place] [id number] Carla Burdick MD [address] [place] [phone] (Fax) 1 month follow up Cardiology Comment on above: 1 month follow up Start: 12-01-2024 Creatinine measurement Serum Creatinine [facility] Start: 11-21-2024 Annual PCP Team Chronic Disease Visit Annual PCP Team Chronic Disease Visit [facility] Start: 11-21-2024 BP Controlled (<130/80) BP Controlled (<130/80) [facility] Start: 11-21-2024 End: 11-21-2024 Patient encounter procedure 11/21/2024 10:00 AM EDT Office Visit Cardiology [address] [place] [address] Albin Gu, EDGE STRIPPER.MANAGER REGULATORY [address] [place] [address] CHF Cardiology Comment on above: CHF Start: 11-20-2024 End: 11-20-2024 Patient encounter procedure 11/20/2024 8:00 AM EDT Office Visit Cardiology [address] [place], [place] [id number] Carla Burdick MD [address] [place], [place] [phone] (Fax) follow up with labs per Dr Burdick's phone note Cardiology Comment on above: follow up with labs per Dr Burdick's da ne note Start: 11-18-2024 Complete blood count Hemoglobin/Hematocrit [facility] Start: 11-18-2024 Creatinine measurement Serum Creatinine [facility] Start: 11-15-2024 End: 02-14-2025 Basic metabolic 2000 panel - Serum or Plasma BASIC METABOLIC PANEL Lab Routine Dyspnea on exertion Chronic diastolic congestive heart failure (HCC) Expected: 11/15/2024, Expires: 02/14/2025 [facility] Work Phone: Comment on above: Expected: 11/15/2024, Expires: Start: 11-15-2024 End: 02-14-2025 Natriuretic peptide.B prohormone N-Terminal [Mass/volume] in Serum or Plasma NT PRO BNP Lab Routine Dyspnea on exertion Chronic diastolic congestive heart failure (HCC) Expected: 11/15/2024, Expires: 02/14/2025 [facility] Comment on above: Expected: 11/15/2024, Expires: Start: 11-15-2024 End: 11-15-2024 ambulatory 11/15/2024 9:00 AM EDT OT/PT/Speech Visit [facility] [address] [place] [address] Frank Null, PT [address] [place], [place] [id number] Physical deconditioning [R53.81] [facility] Comment on above: Physical deconditioning [R53.81] Start: 11-11-2024 Complete blood count Hemoglobin/Hematocrit [facility] Start: 11-11-2024 Creatinine measurement Serum Creatinine [facility] Start: 11-09-2024 Complete blood count Hemoglobin/Hematocrit [facility] Start: 11-09-2024 Creatinine measurement Serum Creatinine [facility] Start: 11-07-2024 End: 11-07-2024 ambulatory 11/07/2024 10:45 AM EDT OT/PT/Speech Visit [facility] [address] [place], [place] [id number] Adriana Wilson, OTR/L [address] [place], [place] [id number] Physical deconditioning [R53.81] [facility] Comment on above: Physical deconditioning [R53.81] Start: 11-06-2024 End: 11-06-2024 Patient encounter procedure 11/06/2024 2:40 PM EDT Office Visit Cardiology [address] [place] [address] Carla Burdick MD [address] [place] [address] hospital f/u - acute on chronic CHF Cardiology Comment on above: hospital f/u - acute on chronic CHF Start: 11-06-2024 End: 02-05-2025 Basic metabolic 2000 panel - Serum or Plasma BASIC METABOLIC PANEL Lab Routine Chronic diastolic (congestive) heart failure (HCC) Expected: 11/06/2024, Expires: 02/05/2025 [facility] Work Phone: Comment on above: Expected: 11/06/2024, Expires: Start: 11-06-2024 End: 02-05-2025 Natriuretic peptide.B prohormone N-Terminal [Mass/volume] in Serum or Plasma NT PRO BNP Lab Routine Chronic diastolic (congestive) heart failure (HCC) Expected: 11/06/2024, Expires: 02/05/2025 [facility] Comment on above: Expected: 11/06/2024, Expires: Start: 11-03-2024 Annual PCP Team Chronic Disease Visit Annual PCP Team Chronic Disease Visit [facility] Start: 11-03-2024 End: 02-02-2025 Basic metabolic 2000 panel - Serum or Plasma BASIC METABOLIC PANEL Lab Routine Chronic diastolic congestive heart failure (HCC) Expected: 11/03/2024, Expires: 02/02/2025 [facility] Work Phone: Comment on above: Expected: 11/03/2024, Expires: Start: 10-31-2024 Complete blood count Hemoglobin/Hematocrit [facility] Start: 10-31-2024 Creatinine measurement Serum Creatinine [facility] Start: 10-26-2024 End: 10-26-2024 Patient encounter procedure 10/26/2024 9:00 AM EDT Office Visit Cardiology [address] [place] [address] Albin Gu APRN.MANAGER REGULATORY [address] [place] [address] I50.32 I10 I49.5 I48.11 Cardiology Comment on above: I50.32 I10 I49.5 I48.11 Start: 10-25-2024 End: 10-25-2024 Patient encounter procedure 10/25/2024 1:30 PM EDT Office Visit Vasculary Surgery [address] [place], [place] [id number] Bilateral carotid artery stenosis [I65.23] [facility] Comment on above: Bilateral carotid artery stenosis [I65.2 3] Start: 10-24-2024 End: 10-24-2024 Patient encounter procedure 10/24/2024 11:00 AM EDT Office Visit Cardiology [address] [place] [address] Albin Gu APRN.MANAGER REGULATORY [address] [place] [address] CHF Cardiology Comment on above: CHF Start: 10-23-2024 End: 10-23-2024 Patient encounter procedure 10/23/2024 2:00 PM EDT Office Visit [facility] [address] [place], [place] [id number] Deysi Collazo APRN.MANAGER REGULATORY [address] [place] [address] Post hospital visit [facility] Comment on above: Post hospital visit Start: 10-17-2024 Annual PCP Team Chronic Disease Visit Annual PCP Team Chronic Disease Visit [facility] Start: 10-17-2024 End: 10-17-2024 Patient encounter procedure Cardiology Comment on above: medtronic ep eval medtronic Start: 10-15-2024 Creatinine measurement Serum Creatinine [facility] Start: 07-05-2024 Advance Directive Discussion Advance Directive Discussion [facility] Start: 07-05-2024 Medicare Advantage Annual Wellness Visit Medicare Advantage Annual Wellness Visit [facility] Start: 06-01-2024 Annual PCP Team Chronic Disease Visit Annual PCP Team Chronic Disease Visit [facility] Start: 06-01-2024 BP Controlled (<130/80) BP Controlled (<130/80) [facility] in Start: 04-16-2024 Glaucoma screening Dilated Retinal Exam [facility] Start: 04-16-2024 Hepatitis C antibody, confirmatory test Dilated Retinal Exam [facility] Start: 04-12-2024 Annual PCP Team Chronic Disease Visit Annual PCP Team Chronic Disease Visit [facility] Start: 04-12-2024 Covid-19 Vaccine () Covid-19 Vaccine () [facility] Comment on above: Postponed from 03/05/2023 (Declined at t his time) Start: 04-12-2024 Shingrix Vaccine (2 of 2) Shingrix Vaccine (2 of 2) [facility] Comment on above: Postponed from 01/03/2019 (Insurance Cov erage) Start: 04-07-2024 Complete blood count Hemoglobin/Hematocrit [facility] Start: 04-07-2024 Creatinine measurement Serum Creatinine [facility] Start: 04-07-2024 Hemoglobin/Hematocrit Hemoglobin/Hematocrit [facility] Start: 04-07-2024 Hepatitis B screening Urine Albumin:Creatinine Ratio [facility] Start: 04-07-2024 Hepatitis B surface antibody level LDL Cholesterol [facility] Start: 04-07-2024 Serum Creatinine Serum Creatinine [facility] Start: 04-07-2024 End: 04-07-2024 Patient encounter procedure 04/07/2024 9:00 AM EDT Office Visit Cardiology [address] [place] [address] Albin Gu, TERI.MANAGER REGULATORY [address] [place] [address] I50.32 I10 I49.5 I48.11 I50.21 Cardiology Comment on above: I50.32 I10 I49.5 I48.11 I50.21 Start: 04-06-2024 End: 04-06-2024 Patient encounter procedure 04/06/2024 9:00 AM EDT Office Visit Cardiology [address] [place] [address] Albin Gu APRN.MANAGER REGULATORY [address] [place] [address] I50.32 I10 I49.5 I48.11 I50.21 Cardiology Comment on above: I50.32 I10 I49.5 I48.11 I50.21 Start: 03-05-2024 Covid-19 Vaccine ( season) Covid-19 Vaccine () [facility] Start: 03-05-2024 Covid-19 Vaccine () Covid-19 Vaccine () [facility] Start: 03-05-2024 Influenza vaccination Influenza Vaccine (#1) [facility] Start: 02-07-2024 End: 05-08-2024 Basic metabolic 2000 panel - Serum or Plasma BASIC METABOLIC PANEL Lab Routine Chronic kidney disease, unspecified CKD stage Expected: 02/07/2024, Expires: 05/08/2024 [facility] Work Phone: Comment on above: Expected: 02/07/2024, Expires: Start: 02-07-2024 End: 05-08-2024 Natriuretic peptide.B prohormone N-Terminal [Mass/volume] in Serum or Plasma NT PRO BNP Lab Routine Chronic diastolic congestive heart failure (HCC) Expected: 02/07/2024, Expires: 05/08/2024 [facility] Work Phone: Comment on above: Expected: 02/07/2024, Expires: 4 Start: 02-07-2024 End: 02-07-2024 Patient encounter procedure 02/07/2024 8:00 AM EDT Office Visit [facility] [address] [place] [address] Doreen Le PA-C [address] [place], [place] [address] 3 month follow up [facility] Comment on above: 3 month follow up Start: 01-17-2024 End: 04-17-2024 Comprehensive metabolic 2000 panel - Serum or Plasma COMPREHENSIVE METABOLIC PANEL Lab Routine Chronic diastolic (congestive) heart failure (HCC) Expected: 01/17/2024, Expires: 04/17/2024 [facility] Comment on above: Expected: 01/17/2024, Expires: Start: 01-17-2024 End: 04-17-2024 Lipid 1996 panel - Serum or Plasma LIPID PANEL BASIC Lab Routine Hyperlipidemia with target LDL less than 70 Expected: 01/17/2024, Expires: 04/17/2024 [facility] Work Phone: Comment on above: Expected: 01/17/2024, Expires: Start: 01-17-2024 End: 04-17-2024 Natriuretic peptide.B prohormone N-Terminal [Mass/volume] in Serum or Plasma NT PRO BNP Lab Routine Chronic diastolic (congestive) heart failure (HCC) Expected: 01/17/2024, Expires: 04/17/2024 [facility] Comment on above: Expected: 01/17/2024, Expires: Start: 01-17-2024 End: 01-17-2024 Patient encounter procedure 01/17/2024 9:20 AM EDT Office Visit Cardiology [address] [place] [id number] Carla Burdick MD [address] [facility] [address] [place] [address] 6 month follow up Cardiology Comment on above: 6 month follow up Start: 01-09-2024 Urine microalbumin profile [facility] Start: 01-08-2024 ANNUAL PCP TEAM CHRONIC DISEASE VISIT ANNUAL PCP TEAM CHRONIC DISEASE VISIT [facility] Start: 12-02-2023 End: 03-02-2024 CBC W Auto Differential panel - Blood COMPLETE BLOOD COUNT AND DIFFERENTIAL Lab Routine Borderline anemia Acute systolic congestive heart failure (HCC) Expected: 12/02/2023, Expires: 03/02/2024 [facility] Work Phone: Comment on above: Expected: 12/02/2023, Expires: Start: 12-02-2023 End: 03-02-2024 Iron and Iron binding capacity panel - Serum or Plasma IRON AND TIBC Lab Routine Borderline anemia Expected: 12/02/2023, Expires: 03/02/2024 [facility] Comment on above: Expected: 12/02/2023, Expires: Start: 11-30-2023 End: 11-30-2023 Patient encounter procedure 11/30/2023 11:00 AM EDT Office Visit Cardiology [address] [place] [address] Albin Gu APRN.MANAGER REGULATORY [address], [place] [id number] NEW CHF/post hospitalization Cardiology Comment on above: NEW CHF/post hospitalization Start: 11-25-2023 End: 02-24-2024 Basic metabolic 2000 panel - Serum or Plasma BASIC METABOLIC PANEL Lab Routine Chronic diastolic congestive heart failure (HCC) Expected: 11/25/2023, Expires: 02/24/2024 [facility] Work Phone: Comment on above: Expected: 11/25/2023, Expires: Start: 11-25-2023 End: 11-25-2023 Patient encounter procedure 11/25/2023 10:00 AM EDT Office Visit Cardiology [address], [place] [id number] Albin Gu, EDGE STRIPPER.MANAGER REGULATORY [address], [place] [id number] NEW CHF/post hospitalization Cardiology Comment on above: NEW CHF/post hospitalization Start: 11-24-2023 End: 11-24-2023 ambulatory 11/24/2023 11:00 AM EDT Visit (SP) Office Hematology/Oncology [address] [place] [address] [place] [address] [place] [address] 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] Hematology/Oncology Comment on above: Iron deficiency anemia secondary to inad equate dietary iron intake [D50.8] Start: 11-22-2023 End: 02-21-2024 Renal function 2000 panel - Serum or Plasma RENAL FUNCTION PANEL Lab Routine Hyponatremia Hypokalemia Expected: 11/22/2023, Expires: 02/21/2024 [facility] Work Phone: Comment on above: Expected: 11/22/2023, Expires: Start: 11-22-2023 End: 11-22-2023 Patient encounter procedure 11/22/2023 9:00 AM EDT Office Visit [facility] [address] [place], [place] [id number] Deysi Collazo, EDGE STRIPPER.MANAGER REGULATORY [address] [place], [place] [address] [facility] Follow up [facility] Comment on above: [facility] Follow up Start: 11-12-2023 End: 02-11-2024 Basic metabolic 2000 panel - Serum or Plasma BASIC METABOLIC PANEL Lab Routine Stage 3 chronic kidney disease, unspecified whether stage 3a or 3b CKD (HCC) Expected: 11/12/2023, Expires: 02/11/2024 [facility] Work Phone: Comment on above: Expected: 11/12/2023, Expires: Start: 11-09-2023 End: 11-09-2023 Patient encounter procedure Vasculary Surgery Comment on above: Carotid artery stenosis, asymptomatic, b ilateral [I65.23] PVD (peripheral vasc ular disease) with claudication (HCC) [I73.9] follow up after test ing Start: 11-08-2023 End: 11-08-2023 Patient encounter procedure 11/08/2023 4:30 PM EDT Office Visit Cardiology [address] [place] [address] Bere Boykin, EDGE STRIPPER.MANAGER REGULATORY [address] [place] [address] Follow up Cardiology Comment on above: Follow up Start: 11-04-2023 End: 11-04-2023 Patient encounter procedure 11/04/2023 8:00 AM EDT Office Visit Family Medicine [facility] [address] [place] [address] Doreen Le PA-C [address] [place] [address] 6 mo follow up Family Medicine [facility] Comment on above: 6 mo follow up Start: 11-02-2023 End: 02-01-2024 Basic metabolic 2000 panel - Serum or Plasma BASIC METABOLIC PANEL Lab Routine Acute systolic congestive heart failure (HCC) Expected: 11/02/2023, Expires: 02/01/2024 [facility] Comment on above: Expected: 11/02/2023, Expires: Start: 10-18-2023 End: 01-17-2024 25-hydroxyvitamin D3 [Mass/volume] in Serum or Plasma VITAMIN D 25 HYDROXY Lab Routine Vitamin D deficiency Expected: 10/18/2023, Expires: 01/17/2024 [facility] Work Phone: Comment on above: Expected: 10/18/2023, Expires: 4 Start: 10-18-2023 End: 01-17-2024 Basic metabolic 2000 panel - Serum or Plasma BASIC METABOLIC PANEL Lab Routine Acute systolic CHF (congestive heart failure) (HCC) Expected: 10/18/2023, Expires: 01/17/2024 [facility] Work Phone: Comment on above: Expected: 10/18/2023, Expires: Start: 10-18-2023 End: 01-17-2024 CBC panel - Blood by Automated count COMPLETE BLOOD COUNT Lab Routine Acute systolic CHF (congestive heart failure) (HCC) Expected: 10/18/2023, Expires: 01/17/2024 [facility] Work Phone: Comment on above: Expected: 10/18/2023, Expires: Start: 10-18-2023 End: 01-17-2024 Natriuretic peptide.B prohormone N-Terminal [Mass/volume] in Serum or Plasma NT PRO BNP Lab Routine Acute systolic CHF (congestive heart failure) (HCC) Expected: 10/18/2023, Expires: 01/17/2024 [facility] Work Phone: Comment on above: Expected: 10/18/2023, Expires: Start: 10-15-2023 End: 01-14-2024 Basic metabolic 2000 panel - Serum or Plasma BASIC METABOLIC PANEL Lab Routine 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) Dilated cardiomyopathy (HCC) Expected: 10/15/2023, Expires: 01/14/2024 [facility] Work Phone: Comment on above: Expected: 10/15/2023, Expires: Start: 10-15-2023 End: 01-14-2024 Natriuretic peptide.B prohormone N-Terminal [Mass/volume] in Serum or Plasma NT PRO BNP Lab Routine 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) Dilated cardiomyopathy (HCC) Expected: 10/15/2023, Expires: 01/14/2024 [facility] Work Phone: Comment on above: Expected: 10/15/2023, Expires: Start: 10-07-2023 ANNUAL PCP TEAM CHRONIC DISEASE VISIT ANNUAL PCP TEAM CHRONIC DISEASE VISIT [facility] Start: 10-07-2023 Hemoglobin A1c measurement HbA1C [facility] Start: 10-07-2023 Hemoglobin A1c/Hemoglobin.total in Blood HbA1C [facility] Start: 10-06-2023 HEMOGLOBIN/HEMATOCRIT HEMOGLOBIN/HEMATOCRIT [facility] Start: 10-06-2023 Hepatitis B surface antibody level LDL CHOLESTEROL [facility] Start: 10-06-2023 SERUM CREATININE SERUM CREATININE [facility] Start: 09-29-2023 BP CONTROLLED (<130/80) BP CONTROLLED (<130/80) [facility] Start: 07-07-2023 ANNUAL PCP TEAM CHRONIC DISEASE VISIT ANNUAL PCP TEAM CHRONIC DISEASE VISIT [facility] Start: 07-05-2023 Advance Directive Discussion Advance Directive Discussion [facility] Start: 07-05-2023 Behavioral Health Screening Behavioral Health Screening [facility] Start: 07-05-2023 Depression Assessment Depression Assessment [facility] Start: 07-03-2023 Hemoglobin A1c/Hemoglobin.total in Blood HBA1C [facility] Start: 05-14-2023 HEMOGLOBIN/HEMATOCRIT HEMOGLOBIN/HEMATOCRIT [facility] Start: 05-14-2023 SERUM CREATININE SERUM CREATININE [facility] Start: 04-15-2023 HEMOGLOBIN/HEMATOCRIT HEMOGLOBIN/HEMATOCRIT [facility] Start: 04-14-2023 Hepatitis C antibody, confirmatory test DILATED RETINAL EXAM [facility] Start: 04-07-2023 End: 06-07-2023 ALBUMIN/CREAT RATIO RND UR ALBUMIN/CREAT RATIO RND UR Lab Routine Type 2 diabetes mellitus with diabetic peripheral angiopathy without gangrene, without long-term current use of insulin (HCC) Expected: 04/07/2023, Expires: 06/07/2023 [facility] Work Phone: Comment on above: Expected: 04/07/2023, Expires: 3 Start: 04-07-2023 End: 06-07-2023 CBC W Auto Differential panel - Blood CBC + DIFF Lab Routine Primary hypertension Gastroesophageal reflux disease without esophagitis Chronic renal failure, stage 3b (HCC) Expected: 04/07/2023, Expires: 06/07/2023 [facility] Work Phone: Comment on above: Expected: [...] of insulin (HCC) Expected: 04/07/2023, Expires: 06/07/2023 [facility] Work Phone: Comment on above: Expected: 04/07/2023, Expires: 3 Start: 04-07-2023 End: 06-07-2023 Ferritin [Mass/volume] in Serum or Plasma FERRITIN BLD Lab Routine Iron 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 Expected: 04/07/2023, Expires: 06/07/2023 [facility] Work Phone: Comment on above: Expected: 04/07/2023, Expires: 3 Start: 04-07-2023 End: 06-07-2023 Hemoglobin A1c in Blood HGB A1C Lab Routine Type 2 diabetes mellitus with diabetic peripheral angiopathy without gangrene, without long-term current use of insulin (HCC) Expected: 04/07/2023, Expires: 06/07/2023 [facility] Work Phone: Comment on above: Expected: 04/07/2023, Expires: 3 Start: 04-07-2023 End: 06-07-2023 Iron and Iron binding capacity panel - Serum or Plasma IRON + TIBC Lab Routine 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 Expected: 04/07/2023, Expires: 06/07/2023 [facility] Work Phone: Comment on above: Expected: 04/07/2023, Expires: 3 Start: 04-07-2023 End: 06-07-2023 Lipid 1996 panel - Serum or Plasma LIPID PANEL BASIC Lab Routine Hyperlipidemia with target LDL less than 70 Expected: 04/07/2023, Expires: 06/07/2023 [facility] Work Phone: Comment on above: Expected: 04/07/2023, Expires: 3 Start: 04-06-2023 3 comp foot exam completed DIABETIC FOOT EXAM [facility] Start: 04-06-2023 ANNUAL PCP TEAM CHRONIC DISEASE VISIT ANNUAL PCP TEAM CHRONIC DISEASE VISIT [facility] Start: 04-06-2023 Diabetic foot examination Diabetic Foot Exam [facility] Start: 04-06-2023 HEMOGLOBIN/HEMATOCRIT HEMOGLOBIN/HEMATOCRIT [facility] Start: 04-06-2023 SERUM CREATININE SERUM CREATININE [facility] Start: 03-22-2023 HEMOGLOBIN/HEMATOCRIT HEMOGLOBIN/HEMATOCRIT [facility] Start: 03-22-2023 SERUM CREATININE SERUM CREATININE [facility] Start: 03-21-2023 HEMOGLOBIN/HEMATOCRIT HEMOGLOBIN/HEMATOCRIT [facility] Start: 03-21-2023 SERUM CREATININE SERUM CREATININE [facility] Start: 03-20-2023 HEMOGLOBIN/HEMATOCRIT HEMOGLOBIN/HEMATOCRIT [facility] Start: 03-20-2023 SERUM CREATININE SERUM CREATININE [facility] Start: 03-19-2023 ANNUAL PCP TEAM CHRONIC DISEASE VISIT ANNUAL PCP TEAM CHRONIC DISEASE VISIT [facility] Start: 03-19-2023 HEMOGLOBIN/HEMATOCRIT HEMOGLOBIN/HEMATOCRIT [facility] Start: 03-19-2023 SERUM CREATININE SERUM CREATININE [facility] Start: 03-05-2023 End: 09-29-2023 Echocardiography ECHO Cardiology Routine History of prosthetic aortic valve replacement H/O rheumatic heart disease Expected: 03/05/2023, Expires: 09/29/2023 [facility] Work Phone: Comment on above: Expected: 03/05/2023, Expires: Start: 03-05-2023 Influenza vaccination [facility] Start: 02-27-2023 HEMOGLOBIN/HEMATOCRIT HEMOGLOBIN/HEMATOCRIT [facility] Start: 02-27-2023 SERUM CREATININE SERUM CREATININE [facility] Start: 02-24-2023 HEMOGLOBIN/HEMATOCRIT HEMOGLOBIN/HEMATOCRIT [facility] Start: 02-24-2023 SERUM CREATININE SERUM CREATININE [facility] Start: 02-23-2023 HEMOGLOBIN/HEMATOCRIT HEMOGLOBIN/HEMATOCRIT [facility] Start: 02-22-2023 SERUM CREATININE SERUM CREATININE [facility] Start: 02-20-2023 ANNUAL PCP TEAM CHRONIC DISEASE VISIT ANNUAL PCP TEAM CHRONIC DISEASE VISIT [facility] Start: 02-17-2023 HEMOGLOBIN/HEMATOCRIT HEMOGLOBIN/HEMATOCRIT [facility] Start: 01-16-2023 ANNUAL PCP TEAM CHRONIC DISEASE VISIT ANNUAL PCP TEAM CHRONIC DISEASE VISIT [facility] Start: 01-09-2023 HEMOGLOBIN/HEMATOCRIT HEMOGLOBIN/HEMATOCRIT [facility] Start: 01-09-2023 SERUM CREATININE SERUM CREATININE [facility] Start: 01-01-2023 BP CONTROLLED (<130/80) BP CONTROLLED (<130/80) [facility] Start: 12-29-2022 HEMOGLOBIN/HEMATOCRIT HEMOGLOBIN/HEMATOCRIT [facility] Start: 12-26-2022 HEMOGLOBIN/HEMATOCRIT HEMOGLOBIN/HEMATOCRIT [facility] Start: 12-16-2022 Hepatitis B screening URINE ALBUMIN:CREATININE RATIO [facility] Start: 12-15-2022 Adult depression screening assessment DEPRESSION SCREENING [facility] Start: 12-15-2022 ANNUAL PCP TEAM CHRONIC DISEASE VISIT ANNUAL PCP TEAM CHRONIC DISEASE VISIT [facility] Start: 12-15-2022 BP CONTROLLED (<130/80) BP CONTROLLED (<130/80) [facility] in Start: 12-15-2022 HEMOGLOBIN/HEMATOCRIT HEMOGLOBIN/HEMATOCRIT [facility] Start: 12-15-2022 Hepatitis B surface antibody level LDL CHOLESTEROL [facility] Start: 12-03-2022 DEPRESSION ASSESSMENT DEPRESSION ASSESSMENT [facility] Comment on above: Postponed from 07/05/2022 (Declined at t his time) Start: 11-28-2022 HEMOGLOBIN/HEMATOCRIT HEMOGLOBIN/HEMATOCRIT [facility] Start: 11-28-2022 SERUM CREATININE SERUM CREATININE [facility] Start: 10-06-2022 End: 12-06-2022 Iron and Iron binding capacity panel - Serum or Plasma IRON + TIBC Lab Routine Iron malabsorption Expected: 10/06/2022, Expires: 12/06/2022 [facility] Work Phone: Comment on above: Expected: [...] of insulin (HCC) Expected: 10/05/2022, Expires: 12/05/2022 [facility] Work Phone: Comment on above: Expected: 10/05/2022, Expires: 3 Start: 10-05-2022 End: 12-05-2022 Comprehensive metabolic 2000 panel - Serum or Plasma COMP METABOLIC PANEL Lab Routine Atrial fibrillation, unspecified type (HCC) Hyperlipidemia with target LDL less than 70 Expected: 10/05/2022, Expires: 12/05/2022 [facility] Work Phone: Comment on above: Expected: 10/05/2022, Expires: 3 Start: 09-28-2022 End: 11-28-2022 Lipid 1996 panel - Serum or Plasma LIPID PANEL BASIC Lab Routine Hyperlipidemia with target LDL less than 70 Expected: 09/28/2022, Expires: 11/28/2022 [facility] Work Phone: Comment on above: Expected: 09/28/2022, Expires: 3 Start: 09-17-2022 Hemoglobin A1c/Hemoglobin.total in Blood HBA1C [facility] Start: 09-16-2022 ANNUAL PCP TEAM CHRONIC DISEASE VISIT ANNUAL PCP TEAM CHRONIC DISEASE VISIT [facility] Start: 09-16-2022 BP CONTROLLED (<130/80) BP CONTROLLED (<130/80) [facility] Start: 09-16-2022 SHINGRIX VACCINE (2 of 2) SHINGRIX VACCINE (2 of 2) [facility] Comment on above: Postponed from 01/03/2019 (Insurance Cov erage) Start: 09-13-2022 HEMOGLOBIN/HEMATOCRIT HEMOGLOBIN/HEMATOCRIT [facility] Start: 09-02-2022 End: 05-09-2023 US KIDNEY/BLADDER US KIDNEY/BLADDER Radiology Routine Neoplasm of uncertain behavior of right kidney Expected: 09/02/2022, Expires: 05/09/2023 [facility] Work Phone: Comment on above: Expected: 09/02/2022, Expires: 3 Start: 07-07-2022 End: 05-06-2023 Ct thorax w/o contrast material CT CHEST WO IVCON Radiology Routine Lung nodule, solitary Expected: 07/07/2022, Expires: 05/06/2023 [facility] Work Phone: Comment on above: Expected: 07/07/2022, Expires: 3 Start: 07-05-2022 ADVANCE DIRECTIVE DISCUSSION ADVANCE DIRECTIVE DISCUSSION [facility] Start: 07-05-2022 DEPRESSION ASSESSMENT DEPRESSION ASSESSMENT [facility] Start: 06-16-2022 Hemoglobin A1c/Hemoglobin.total in Blood HBA1C [facility] Start: 06-02-2022 SERUM CREATININE SERUM CREATININE [facility] Start: 05-07-2022 End: 07-07-2022 Basic metabolic 2000 panel - Serum or Plasma BASIC METABOLIC PNL Lab Routine Stage 3b chronic kidney disease (HCC) Iron deficiency anemia due to chronic blood loss Expected: 05/07/2022, Expires: 07/07/2022 [facility] Work Phone: Comment on above: Expected: 05/07/2022, Expires: 3 Start: 05-07-2022 End: 07-07-2022 CBC panel - Blood by Automated count CBC Lab Routine Stage 3b chronic kidney disease (HCC) Iron deficiency anemia due to chronic blood loss Expected: 05/07/2022, Expires: 07/07/2022 [facility] Work Phone: Comment on above: Expected: 05/07/2022, Expires: 3 Start: 03-30-2022 End: 05-30-2022 Basic metabolic 2000 panel - Serum or Plasma BASIC METABOLIC PNL Lab Routine Primary hypertension Expected: 03/30/2022, Expires: 05/30/2022 [facility] Work Phone: Comment on above: Expected: 03/30/2022, Expires: 2 Start: 03-05-2022 Influenza vaccination INFLUENZA (#1) [facility] Start: 02-20-2022 End: 04-22-2022 Basic metabolic 2000 panel - Serum or Plasma [facility] Work Phone: Comment on above: Expected: 02/20/2022, Expires: 2 Start: 02-19-2022 Hepatitis C antibody, confirmatory test DILATED RETINAL EXAM [facility] Start: 01-21-2022 End: 01-21-2023 SARS-CoV-2 (COVID-19) RNA [Presence] in Respiratory specimen by RANDOLPH with probe detection PRE-PROCEDURE & PRE-OPERATIVE COVID Microbiology Routine Paroxysmal atrial fibrillation (HCC) Expected: 01/21/2022, Expires: 01/21/2023 [facility] Work Phone: Comment on above: Expected: 01/21/2022, Expires: 3 Start: 12-30-2021 Administration of blood product [facility] Work Phone: Start: 12-30-2021 [facility] Work Phone: Start: 12-27-2021 End: 02-26-2022 CBC W Auto Differential panel - Blood CBC + DIFF Lab Routine Anemia, unspecified type Expected: 12/27/2021, Expires: 02/26/2022 [facility] Work Phone: Comment on above: Expected: 12/27/2021, Expires: 2 Start: 12-27-2021 End: 02-26-2022 Iron and Iron binding capacity panel - Serum or Plasma IRON + TIBC Lab Routine Anemia, unspecified type Expected: 12/27/2021, Expires: 02/26/2022 [facility] Work Phone: Comment on above: Expected: 12/27/2021, Expires: 2 Start: 12-15-2021 End: 02-14-2022 ALBUMIN/CREAT RATIO RND UR ALBUMIN/CREAT RATIO RND UR Lab Routine Type 2 diabetes mellitus with diabetic peripheral angiopathy without gangrene, without long-term current use of insulin (HCC) Expected: 12/15/2021, Expires: 02/14/2022 [facility] Work Phone: Comment on above: Expected: 12/15/2021, Expires: 2 Start: 12-11-2021 Hepatitis B surface antibody level LDL CHOLESTEROL [facility] Start: 11-26-2021 End: 01-26-2022 CBC panel - Blood by Automated count CBC Lab Routine PAD (peripheral artery disease) (HCC) Anemia due to chronic illness Expected: 11/26/2021, Expires: 01/26/2022 [facility] Work Phone: Comment on above: Expected: 11/26/2021, Expires: 2 Start: 11-26-2021 End: 01-26-2022 Renal function 2000 panel - Serum or Plasma RENAL FUNCTION PANEL Lab Routine PAD (peripheral artery disease) (HCC) Expected: 11/26/2021, Expires: 01/26/2022 [facility] Work Phone: Comment on above: Expected: 11/26/2021, Expires: 2 Start: 07-13-2021 COVID-19 VACCINE (4 - Booster for Pfizer series) COVID-19 VACCINE (4 - Booster for Pfizer series) [facility] Start: 07-12-2021 Hepatitis B screening URINE ALBUMIN:CREATININE RATIO [facility] Start: 07-05-2021 ADVANCE DIRECTIVE DISCUSSION ADVANCE DIRECTIVE DISCUSSION [facility] Start: 07-05-2021 DEPRESSION ASSESSMENT DEPRESSION ASSESSMENT [facility] Start: 06-12-2021 Hemoglobin A1c/Hemoglobin.total in Blood HBA1C [facility] Start: 05-08-2021 COVID-19 VACCINE (4 - Booster for Pfizer series) COVID-19 VACCINE (4 - Booster for Pfizer series) [facility] Start: 05-08-2021 COVID-19 VACCINE (4 - Pfizer series) COVID-19 VACCINE (4 - Pfizer series) [facility] Start: 2020 RSV Vaccine (1 - 1-dose 75+ series) RSV Vaccine (1 - 1-dose 75+ series) [facility] Start: 07-18-2020 Adult depression screening assessment DEPRESSION SCREENING [facility] Start: 05-25-2019 End: 05-25-2019 Office Visit 05/25/2019 Office Visit Cardiovascular Medicine Mars Chung, DO [address] [place] [address] [facility] Start: 03-05-2019 Influenza vaccination INFLUENZA VACCINE (#1) [facility] Start: 01-03-2019 SHINGRIX VACCINE (2 of 2) SHINGRIX VACCINE (2 of 2) [facility] Start: 01-08-2015 3 comp foot exam completed DIABETIC FOOT EXAM [facility] Start: 2010 Pneumococcal vaccination PNEUMOCOCCAL VACCINE SERIES (1 of 2 - PCV13) [facility] Start: 2005 Hepatitis B Vaccine (1 of 3 - Risk 3-dose series) Hepatitis B Vaccine (1 of 3 - Risk 3-dose series) [facility] Start: 2005 RSV Vaccine (1 - 1-dose 60+ series) RSV Vaccine (1 - 1-dose 60+ series) [facility] Start: 1995 Colonoscopy COLON CANCER SCREENING DISCUSSION [facility] Start: 1995 Zoster vaccine hzv live for subcutaneous use ZOSTER (SHINGLES) VACCINE (1 of 2) [facility] Start: 1985 Fasting lipid profile LIPID SCREENING [facility] Start: 1985 Screening mammography MAMMOGRAM SCREENING DISCUSSION [facility] Start: 1966 Screening for malignant neoplasm of cervix PAP SMEAR DISCUSSION [facility] Start: 1964 Third diphtheria, tetanus and acellular pertussis (DTaP) vaccination TDAP (ADULT) [facility] Start: 1963 Anxiety Screening Anxiety Screening [facility] Start: 1963 BP CONTROLLED (<130/80) BP CONTROLLED (<130/80) [facility] in Start: 1963 Depression Screening Depression Screening [facility] Start: 1963 Tetanus vaccination TETANUS [facility] Start: 1945 Hepatitis C antibody, confirmatory test HEPATITIS C VIRUS SCREENING [facility] Start: 1945 Potassium [Moles/Vol] POTASSIUM [facility] Start: 1945 Screening for osteoporosis DEXA SCAN DISCUSSION [facility] Anion gap in Serum o r Plasma [facility] BUN/Creatinine ratio [facility] Calcium [Mass/volume ] in Serum or Plasma [facility] Carbon dioxide, tota l [Moles/volume] in Central venous blood [facility] Cholesterol [Mass/vo lume] in Serum or Plasma [facility] Cholesterol in HDL [Mass/volume] in Serum or Plasma [facility] COVID & INFLUENZA A/ B & RSV NAAT, ROUTINE COVID & INFLUENZA A/B & RSV NAAT, ROUTINE Microbiology Routine Influenza-like illness Ordered: 07/05/2023 [facility] Work Phone: Comment on above: Ordered: 07/05/2023 Creatinine [Mass/vol ume] in Serum or Plasma [facility] End: 01-21-2023 ECG COMPLETE ECG COMPLETE ECG Routine Paroxysmal atrial fibrillation (HCC) 1 Occurrences starting 01/21/2022 until 01/21/2023 [facility] Work Phone: Comment on above: 1 Occurrences starting 01/21/2022 until 01/21/2023 End: 02-09-2023 ECG COMPLETE ECG COMPLETE ECG Routine Paroxysmal atrial fibrillation (HCC) Presence of Watchman left atrial appendage closure device 1 Occurrences starting 02/09/2022 until 02/09/2023 [facility] Work Phone: Comment on above: 1 Occurrences starting 02/09/2022 until 02/09/2023 End: 03-19-2023 ECG COMPLETE ECG COMPLETE ECG Routine Aortic prosthetic valve regurgitation, 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) 1 Occurrences starting 03/19/2022 until 03/19/2023 [facility] Work Phone: Comment on above: 1 Occurrences starting 03/19/2022 until 03/19/2023 ECG COMPLETE ECG COMPLETE ECG 03/19/2022 11:04 AM EDT [facility] ECG COMPLETE [facility] Work Phone: Comment on above: Ordered: 10/18/2023 ECG COMPLETE ECG COMPLETE ECG 11/08/2023 4:52 PM EDT [facility] End: 01-21-2023 ECHO TRANSESOPHAGEAL ECHO TRANSESOPHAGEAL Cardiology Routine Paroxysmal atrial fibrillation (HCC) 1 Occurrences starting 01/21/2022 until 01/21/2023 [facility] Work Phone: Comment on above: 1 Occurrences starting 01/21/2022 until 01/21/2023 End: 02-09-2023 ECHO TRANSESOPHAGEAL ECHO TRANSESOPHAGEAL Cardiology Routine Paroxysmal atrial fibrillation (HCC) Presence of Watchman left atrial appendage closure device 1 Occurrences starting 02/09/2022 until 02/09/2023 [facility] Work Phone: Comment on above: 1 Occurrences starting 02/09/2022 until 02/09/2023 ECHO TRANSESOPHAGEAL ECHO TRANSE SOPHAGEAL Cardiology Routine Longstanding persistent atrial fibrillation (HCC) Presence of Watchman left atrial appendage closure device Ordered: 03/04/2022 [facility] Work Phone: Comment on above: Ordered: 03/04/2022 End: 10-17-2024 Echocardiography ECHO Cardiology Routine Acute systolic CHF (congestive heart failure) (HCC) 1 Occurrences starting 10/18/2023 until 10/17/2024 [facility] Work Phone: Comment on above: 1 Occurrences starting 10/18/2023 until 10/17/2024 End: 01-01-2026 Echocardiography ECHO Cardiology Routine Chronic diastolic (congestive) heart failure (HCC) History of prosthetic aortic valve replacement Acute on chronic diastolic congestive heart failure (HCC) 1 Occurrences starting 01/01/2025 until 01/01/2026 [facility] Work Phone: Comment on above: 1 Occurrences starting 01/01/2025 until 01/01/2026 End: 01-01-2023 EGD DIAGNOSTIC EGD DIAGNOSTIC Endoscopy Routine Acute blood loss anemia Heme + stool Epigastric pain 1 Occurrences starting 01/01/2022 until 01/01/2023 [facility] Work Phone: Comment on above: 1 Occurrences starting 01/01/2022 until 01/01/2023 Erythrocyte mean corpuscular volume determination [facility] Glucose [Mass/volume ] in Serum or Plasma [facility] Hematocrit [Volume Fraction] of Blood [facility] Hemoglobin [Mass/vol ume] in Blood [facility] Hemoglobin.gastrokelyl estmichael al.lower [Presence] in Stool by Immunoassay FECAL OCCULT BLOOD TEST Lab Routine Heme + stool Ordered: 12/15/2021 [facility] Work Phone: Comment on above: Ordered: 12/15/2021 Hemoglobin.gastrokelly francisco al.lower [Presence] in Stool by Immunoassay IMMUNOCHEMICAL FECAL OCCULT BLOOD TEST Lab Routine Acute systolic CHF (congestive heart failure) (HCC) Ordered: 11/04/2023 [facility] Work Phone: Comment on above: Ordered: 11/04/2023 Leukocytes [#/volume ] in Blood [facility] Low density lipoprot ein cholesterol measurement [facility] Magnesium measurement [facility] Mean corpuscular hemoglobin concentration determination [facility] Mean corpuscular hemoglobin determination [facility] Measurement of renal function [facility] End: 08-06-2023 Mra head w/o & w/contrast material MRA BRAIN WO/W IVCON Radiology Routine 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 1 Occurrences starting 07/07/2022 until 08/06/2023 [facility] Work Phone: Comment on above: 1 Occurrences starting 07/07/2022 until 08/06/2023 Neutrophil count [facility] Neutrophil percent differential count [facility] Platelets [#/volume] in Blood [facility] Potassium measurement [facility] End: 01-08-2024 PVR ANK PRESS [facility] PVR ANK PRESS [facility] Vascular Lab Routine 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HCC) Pain in both lower legs 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) 1 Occurrences starting 01/07/2023 until 01/08/2024 [facility] Work Phone: Comment on above: 1 Occurrences starting 01/07/2023 until 01/08/2024 End: 01-08-2024 PVR LEG [facility] PVR LEG [facility] Vascular Lab Routine 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HCC) Pain in both lower legs 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) 1 Occurrences starting 01/07/2023 until 01/08/2024 [facility] Work Phone: Comment on above: 1 Occurrences starting 01/07/2023 until 01/08/2024 Red blood cell count [facility] Red cell distributio n width determination [facility] Serum chloride measurement [facility] Sodium measurement [facility] SURGICAL PATHOLOGY [facility] Work Phone: Comment on above: Release Upon Ordering for 1 Occurrences starting 01/02/2022, 1 completed Total cholesterol:HD L ratio measurement [facility] Triglycerides measurement [facility] Urea nitrogen [Mass/volume] in Serum or Plasma [facility] End: 01-08-2024 US CAROTID ARTERIES [facility] US CAROTID ARTERIES [facility] Vascular Lab Routine Bilateral carotid artery stenosis 1 Occurrences starting 01/07/2023 until 01/08/2024 [facility] Work Phone: Comment on above: 1 Occurrences starting 01/07/2023 until 01/08/2024 End: 12-20-2025 US Mesenteric arteries US MESENTERIC ARTERY [facility] Vascular Lab Routine Superior mesenteric artery stenosis (HCC) 1 Occurrences starting 12/20/2024 until 12/20/2025 [facility] Work Phone: Comment on above: 1 Occurrences starting 12/20/2024 until 12/20/2025 VLDL cholesterol measurement [facility] Immunizations Immunization Date Immunization Notes Care Provider Edouard nobles 07-07-2024 influenza, high dose seasonal, preservative-free Melida Eugene BOYLE Work Phone: [facility] 04-12-2023 influenza (HD-IIV4) vaccine, age 65+ yr, high dose, quadrivalent, PF (FLUZONE HIGH-DOSE) Ct (I-Stat) Work Phone: [facility] 04-12-2023 influenza virus vacc ine, unspecified formulation Carla Burdick MD Work Phone: [facility] 05-22-2022 influenza (aIIV4) vaccine, age 65+ yr, quadrivalent, PF (FLUAD QUADRIVALENT) NA Rey HAMLIN Work Phone: [facility] 05-22-2022 influenza, high-dose , quadrivalent vaccine (FLUZONE HIGH DOSE QUADRIVALENT) Sonny Lund MD Work Phone: [facility] 05-22-2022 influenza virus vacc ine, unspecified formulation Yin Joseph MD Work Phone: [facility] 05-20-2021 influenza, high-dose , quadrivalent vaccine (FLUZONE HIGH DOSE QUADRIVALENT) Chandler Swan MD Work Phone: [facility] 10-09-2020 COVID-19 vaccine, ag e 12+ yr (PFIZER-BIONTNadanu - PURPLE TOP) Chandler Swan MD Work Phone: [facility] 09-18-2020 COVID-19 vaccine, ag e 12+ yr (PFIZER-Branching MindsNTNadanu - PURPLE TOP) Chandler Swan MD Work Phone: [facility] 05-17-2020 influenza, high-dose , quadrivalent vaccine (FLUZONE HIGH DOSE QUADRIVALENT) Chandler Swan MD Work Phone: [facility] 05-09-2019 influenza, high dose seasonal, preservative-free Chandler Swan MD Work Phone: [facility] 11-08-2018 zoster vaccine recombinant Chandler Swan MD Work Phone: [facility] Work Phone: 05-09-2018 Seasonal trivalent influenza vaccine, adjuvanted, preservative free Chandler Swan MD Work Phone: [facility] 05-05-2017 influenza nasal, unspecified formulation Chandler Swan MD Work Phone: [facility] 05-05-2017 influenza, injectabl e, quadrivalent, contains preservative Chandler Swan MD Work Phone: [facility] 05-05-2017 influenza, seasonal, injectable Chandler Swan MD Work Phone: [facility] 05-05-2017 influenza virus vacc ine, unspecified formulation [facility] 04-05-2017 influenza, injectabl e, quadrivalent, preservative free Ct (I-Stat) Work Phone: [facility] 04-05-2017 influenza, seasonal, injectable [facility] 04-05-2017 influenza, seasonal, injectable, preservative free Chandler Swan MD Work Phone: [facility] 11-25-2016 pneumococcal conjuga te vaccine, 13 valent Chandler Swan MD Work Phone: [facility] Work Phone: 04-07-2016 influenza, high dose seasonal, preservative-free Chandler Swan MD Work Phone: [facility] Work Phone: 01-08-2014 tetanus toxoid, redu javid diphtheria toxoid, and acellular pertussis vaccine, adsorbed Chandler Swan MD Work Phone: [facility] Work Phone: 06-06-2013 pneumococcal polysaccharide vaccine, 23 valent Chandler Swan MD Work Phone: [facility] 05-14-2013 influenza nasal, unspecified formulation Chandler Swan MD Work Phone: [facility] 05-14-2013 influenza virus vacc ine, unspecified formulation Chandler Swan MD Work Phone: [facility] 05-14-2013 influenza, seasonal, injectable, preservative free Chandler Swan MD Work Phone: [facility] 05-20-2012 influenza, seasonal, injectable Chandler Swan MD Work Phone: [facility] 04-29-2011 influenza, seasonal, injectable, preservative free Chandler Swan MD Work Phone: [facility] 04-23-2009 influenza, seasonal, injectable Chandler Swan MD Work Phone: [facility] 07-07-1999 pneumococcal polysaccharide vaccine, 23 valent Chai Encinas MD Work Phone: [facility] Work Phone: 07-05-1999 pneumococcal polysaccharide vaccine, 23 valent Chandler Swan MD Work Phone: [facility] Payers Date Payer Category Payer Self-pay [id number] 2021 Medicare [id number] 2021 Medicare [id number] 2021 Medicare (Managed Care) [employer] NICKERSON [id number] 2021 Private Health Insurance [facility] [id number] 2019 Medicare MEDICARE HU[employer]NA HMO PPO MEDICARE HU[employer]NA HMO PPO xxxxxxxxx 2019-Present xxxxxxxxx [id number] 2015 Medicare SELF PAY INSURANCE [id number] Unknown [id number] Unknown [id number] Unknown [id number] Unknown [id number] Unknown [id number] Unknown [id number] Unknown [id number] Unknown [id number] Unknown [id number] Social History Date Type Detail Facility Start: 01-19-2019 End: 04-07-2024 Tobacco smoking status NHIS Former smoker [facility] Start: 01-19-2019 Tobacco Comment smoked for a y ear, 50 years ago [employer] Start: 01-19-2019 Alcohol Comment occasional wine [facility] Start: 1945 Sex Assigned At Not on file [facility] Start: 07-[facility]-1965 End: 02-11-1970 History of tobacco use Current smoker [facility] Start: 08-10-2019 End: 04-07-2024 Tobacco use and exposure Smokeless tobacco non-user [facility] Start: 09-16-2021 End: 12-15-2021 Alcohol intake Current drinker of alcohol (finding) [facility] Start: 09-16-2021 End: 01-07-2023 Alcohol intake [facility] Start: 10-25-2019 End: 10-29-2019 History SDOH Alcohol Frequency 2 [facility] Start: 10-25-2019 End: 10-29-2019 History SDOH Alcohol Std Drinks 1 [facility] Start: 01-31-2019 History SDOH Alcohol Comment red wine 2-3 times a week- occasional [facility] Start: 10-29-2019 History SDOH Social Connections Phone 5 [facility] Start: 10-29-2019 End: 02-24-2022 History SDOH Social Connections Psychiatric 3 [facility] Start: 10-29-2019 Education 15 [facility] Start: 09-05-2021 End: 05-14-2022 Exposure to SARS-CoV-2 (event) Not sure [facility] Start: 10-14-2021 End: 01-23-2022 Exposure to SARS-CoV-2 (event) Unable to assess [facility] Start: 02-13-2021 Tobacco smoking stat us IDIS Unknown if ever smoked [facility] Work Phone: Start: 1945 Sex Assigned At Female [facility] Start: 07-05-1965 End: 02-11-1970 History of tobacco use Cigarette Smoker [facility] Start: 06-08-2022 End: 01-01-2025 Alcohol intake Ex-drinker (finding) [facility] Start: 01-07-2023 End: 12-11-2024 Tobacco use panel [facility] How hard is it for y ou to pay for the very basics like food, housing, medical care, and heating Patient refused [facility] (I/We) worried wheth er (my/our) food would run out before (I/we) got money to buy more. DK or Refused [facility] Do you belong to any clubs or organizations such as confucianist groups, unions, fraternal or athletic groups, or school groups? Yes [facility] Are you now , , , , never or living with a partner? [facility] How often to you hav e a drink containing alcohol? Monthly or less [facility] How many standard dr inks containing alcohol do you have on a typical day? 1 or 2 [facility] How often do you hav e 6 or more drinks on 1 occasion? Never [facility] Do you feel stress - tense, restless, nervous, or anxious, or unable to sleep at night because your mind is troubled all the time - these days [OSQ] Not at all [facility] Has the [employer], or [employer] threatened to shut off services in your home in past 12Mo No [facility] (I/We) worried wheth er (my/our) food would run out before (I/we) got money to buy more. Never true [facility] Start: 01-07-2025 End: 01-11-2025 Tobacco smoking status NHIS Never smoked tobacco (finding) [facility] Start: 11-15-2017 Alcohol Alcohol [facility] Start: 11-15-2017 Drugs Drugs [facility] Start: 11-15-2017 Lives Lives [facility] Start: 01-11-2025 Tobacco Use Tobacco Use [facility] Medical Equipment Procedure Code Equipment Code Equipment Origin al Text Equipment Identifier Dates Test blood sugar (s) 2 times daily. Dx: Type 2 DM - Controlled E11.9 Insulin: No [id number] Start: 01-19-2019 Comment on above: Test blood sugar(s) 2 times daily. Dx: Type 2 DM - Controlled E11.9 Insulin: No [id number] Sania Xt [id number] Start: 10-21-2020 [id number] [employer] Selam Bartlett [id number] Start: 10-21-2020 [id number] Capsuretyree Hawkins [id number] Start: 10-21-2020 Goals Date Patient Goal Desired Activity /State Personal health goal Functional Status Date Assessment Result Facility 01-11-2025 Functional status Chair [facility] Work Phone: 12-12-2024 Are you deaf, or do you have serious difficulty hearing Yes 12/12/2024 10:12 AM EDT Lizeth Jordan RN Yes [facility] 12-12-2024 Are you blind, or do you have serious difficulty seeing, even when wearing glasses No 12/12/2024 10:12 AM EDT Lizeth Jordan, DOUG No [facility] 12-12-2024 Do you have serious difficulty walking or climbing stairs No 12/12/2024 10:12 AM EDT Lizeth Jordan RN No [facility] 12-12-2024 Do you have difficul ty dressing or bathing No 12/12/2024 10:12 AM EDT Lizeth Jordan, DOUG No [facility] 12-12-2024 Because of a physica l, mental, or emotional condition, do you have difficulty doing errands alone such as visiting a physician's office or shopping No 12/12/2024 10:12 AM EDT Lizeth Jrodan RN No [facility] 11-12-2023 Are you deaf, or do you have serious difficulty hearing No 11/12/2023 3:37 PM EDT Raina Coppola, DOUG No [facility] 11-12-2023 Are you blind, or do you have serious difficulty seeing, even when wearing glasses No 11/12/2023 3:37 PM ADIELT Raina Coppola, DOUG No [facility] 11-12-2023 Do you have serious difficulty walking or climbing stairs No 11/12/2023 3:37 PM EDT Raina Coppola, DOUG No [facility] 11-12-2023 Do you have difficul ty dressing or bathing No 11/12/2023 3:37 PM EDT Raina Coppola RN No [facility] 11-12-2023 Because of a physica l, mental, or emotional condition, do you have difficulty doing errands alone such as visiting a physician's office or shopping No 11/12/2023 3:37 PM EDT Raina Coppola RN No [facility] Mental Status Date Assessment Result Facility 01-11-2025 Cognitive function Voice/Name [facility] Work Phone: 12-12-2024 Because of a physica l, mental, or emotional condition, do you have serious difficulty concentrating, remembering, or making decisions No 12/12/2024 10:12 AM EDT Lizeth Jordan RN No [facility] 11-12-2023 Because of a physica l, mental, or emotional condition, do you have serious difficulty concentrating, remembering, or making decisions No 11/12/2023 3:37 PM EDT Raina Coppola RN No [facility] 12-30-2021 Cognitive function Voice/Name [facility] Work Phone: Clinical Notes 02-15-2021 to 01-11-2025 Note Date & Type Note Facility 01-11-2025 Discharge summary [facility] 01-11-2025 Note [facility] Medical Records Department [address] [place] [address] Discharge Summary 01/11/25 1230 MR#: [id number] Acct: [id number] Name: TAMERA SANCHESRA RUBIN Rep #: [id number] : 1945 79 From: Dianne Stovall DO PCP: JARROD Cantu Status:DIS IN Location: [facility] [id number] Providers Date of Admission: 01/07/25 Date of Discharge: 01/11/25 Primary Care Physician: JARROD Cantu Consultations 01/08/25 05:04 Consult: Tele-Neurology Routine Consulting Provider: [facility] Reason for Consult: Acute Ischemic Stroke/TIA EMERGENT Consult: No MD Notified: Yes Date Notified: 01/08/25 Time Notified: 05:54 Method of Notification: Answering Service Nursing Unit Staff Notify [facility] of Tele-Neurology Consult: Yes 01/08/25 16:09 Consult: Nephrology Routine Consulting Provider: Jeremy Mcgarry Reason for Consult: ckd EMERGENT Consult: No MD Notified: Yes Date Notified: 01/08/25 Time Notified: 16:10 Method of Notification: Verbal Reason For Visit: CHF EXACERBATION Diagnosis Discharge Diagnosis (1) CHF exacerbation: Status: Acute Code(s): I50.9 - Heart failure, unspecified Qualifiers: Heart failure type: unspecified Qualified Code(s): I50.9 - Heart failure, unspecified (2) Chronic kidney disease, stage 3b: Status: Acute Code(s): N18.32 - Chronic kidney disease, stage 3b Plan 1. Acute on chronic diastolic congestive heart failure-patient remains on IV Lasix drip at this time, she will be reevaluated tomorrow, BMP will be obtained tomorrow 2 essential hypertension-patient will remain on her current medications #3 lower extremity edema secondary to #1-again patient on Lasix drip #4 chronic kidney disease stage IV-complicates care, management, recovery, and prognosis, labs will be repeated tomorrow, patient will need follow-up with nephrology as an outpatient #5 prediabetes-patient's fasting glucose this morning was 135, BMP will be repeated tomorrow #6 valvular heart disease-patient has a bioprosthetic aortic valve, she has some mitral valve insufficiency, patient will follow-up with cardiology as an outpatient Total clinical time spent by myself addressing the patient's medical issues, reviewing all of her data, and collaborating with patient's care team: 35-minute Medications at Discharge Home Medications metoprolol succinate 25 mg tablet,extended release 24 hr 50 mg PO BID heart 02/13/21 aspirin 81 mg capsule 81 mg PO DAILY 01/07/25 atorvastatin 40 mg tablet 40 mg PO DAILY daily 01/07/25 clopidogrel 75 mg tablet 75 mg PO DAILY 01/07/25 ferrous sulfate 325 mg (65 mg iron) tablet (Feosol) 325 mg PO DAILY 01/07/25 pantoprazole 40 mg tablet,delayed release 40 mg PO BID stomach 01/07/25 psyllium 3.4 gram/5.8 gram oral powder 3.4 g PO BID daily 07/06/25 spironolactone 25 mg tablet 12.5 mg PO BID daily 01/07/25 bumetanide 2 mg tablet 2 mg PO BID #60 tabs 01/08/25 metolazone 5 mg tablet 5 mg PO DAILY #30 tabs 01/08/25 potassium chloride 10 mEq tablet,extended release(part/cryst) 20 meq (2 x 10 mEq) PO DAILYCM #60 tabs 01/08/25 Hospital Course Operations None Procedures 2-D Echocardiogram Summary of Care Provided Minutes Spent on Discharge: 31 Hospital Course: This 79-year-old white female was seen in the emergency room at [facility] with complaints of shortness of breath. She had been diagnosed previously with congestive heart failure in the past, she had been seen by her flosser on January 01, 2025 and he changed her Lasix dosage. Patient complained of mild shortness of breath at rest but worsening shortness of breath with exertion. Labs were remarkable for sodium of 129, BUN was 47 creatinine was 1.77, patient's troponins were elevated but were "flat", beta nitric peptide was elevated at 10,409. Chest x-ray was obtained and showed findings consistent with mild congestive heart failure. Patient was admitted to PCU and placed on IV diuresis, later that night at approximately 10:50 PM the patient was noted to have a left facial droop in addition to weakness in her left lower extremity, it was found out however that the patient had a chronic left facial droop and this was not a new finding. A stroke alert was called and she underwent a CT scan of the head without contrast and a CT of the head and neck, these imaging studies were unremarkable. Patient was already on Plavix and aspirin and a statin. Patient was seen the following day by teleneurology, she stated that she felt back to baseline and teleneurology did not feel that any further stroke workup was necessary. Patient was seen in consultation by nephrology who assisted in providing diuresis input concerning the patient. On 01/11/2025, patient was seen and examined: On examination she appeared in good health and spirits, she does not appear to be in any distres (more content not included)... [facility] 01-10-2025 Progress note Note Date/Time January 10, 2025 6:26p m [facility] Medical Records Department [address] [place] [address] Progress Note - Hospitalist 01/10/25 1823 MR#: [id number] Acct: [id number] Name: BERTA SANCHES Rep #:[id number] : 1945 79 From: Dianne Stovall DO PCP: JARROD Cantu Status:ADM I N Location: [place] [address] Reason for Visit Reason for Visit: Diagnoses Transient cerebral ischemic attack, unspecified (01/07/25) Heart failure, unspecified (01/07/25) Acute kidney failure, unspecified (01/07/25) Chronic kidney disease, stage 3b (01/07/25) Subjective Subjective Patient was seen and examined today, she remains on room air. There is less edema in the patient's upper legs although the patient's input of fluids is greater than her output of urine. Patient remains on IV Lasix drip at this time. Objective Data Objective Data Vital Signs: Vital Signs Temp Pulse Resp BP Pulse Ox O2 Del Method 97.7 F L 85 16 149/54 H 96 Room Air 01/10/25 09:00 01/10/25 09:31 01/10/25 09:00 01/10/25 09:31 01/10/25 10:29 01/10/25 14:00 Oxygen Delivery Method Room Air Weight: 69.1 kg Body Mass Index (BMI) 26.9 Intake & Output: Intake and Output for Last 24 Hours 01/08/25 01/09/25 01/10/25 23:59 23:59 23:59 Intake Total 800 / 800 1449.5 / 1449.5 240 / 240 Output Total 1075 / 1475 1925 / 1925 500 / 500 Balance -275 / -675 -475.5 / -475.5 -260 / -260 Lab / Micro Data 01/08/25 06:06 01/09/25 05:38 Labs: Laboratory Results - last 24 hr 01/10/25 06:43: POC Glucose 134 H 01/10/25 13:02: POC Glucose 133 H 01/10/25 17:10: POC Glucose 126 H Physical Exam Narrative alert, oriented x3 and no apparent distress General Appearance: cooperative, well kempt and well developed Orientation / Consciousness: awake, oriented to person, oriented to place and oriented to time HEENT normocephalic, head/scalp atraumatic and moist oral mucous membranes Eyes PERRL, EOMs intact bilaterally and conjunctivae normal Neck supple, no JVD and thyroid normal General: trachea midline Resp normal respiratory effort, no retractions, no use of accessory muscles and clearto auscultation bilaterally Auscultation: Negative for rales, rhonchi or wheezes Cardio regular rate, regular rhythm, no rub and no gallops Cardio Narrative: There is a 2 or 6 systolic murmur noted at the patient's apex and left sternal border GI normal to inspection, nondistended, normoactive bowel sounds, soft to palpation,non-tender and non-distended Extremity Extremity Narrative: There is generalized pitting edema noted in the patient's upper legs bilaterally, lower legs show no evidence of edema at this time Skin no rashes or lesions noted General Skin Exam: no breakdown Neuro oriented x3, CN's II-XII intact bilaterally, no focal motor deficits and no sensory deficits noted Sensorium / Orientation: awake and alert Speech: speech normal Psych affect normal Assessment & Plan Assessment/Plan (1) CHF exacerbation: QUALIFIERS: Heart failure type: unspecified Qualified Code(s): I50.9 - Heart failure, unspecified (2) Chronic kidney disease, stage 3b: PLAN: Plan 1. Acute on chronic diastolic congestive heart failure-patient remains on IV Lasix drip at this time, she will be reevaluated tomorrow, BMP will be obtained tomorrow 2 essential hypertension-patient will remain on her current medications #3 lower extremity edema secondary to #1-again patient on Lasix drip #4 chronic kidney disease stage IV-complicates care, management, recovery, and prognosis, labs will be repeated tomorrow, patient will need follow-up with nephrology as an outpatient #5 prediabetes-patient's fasting glucose this morning was 135, BMP will be repeated tomorrow #6 valvular heart disease-patient has a bioprosthetic aortic valve, she has somemitral valve insufficiency, patient will follow-up with cardiology as an outpatient Total clinical time spent by myself addressing the patient's medical issues, reviewing all of her data, and collaborating with patient's care team: 35-minute Charges/Coding Visit Charges Inpatient E&M: 81094 Subs Hosp L2 NIHSS NIHSS Nursing Documentation NIHSS Nursing Documentation: NIHSS: Ischemic Stroke/TIA Start: 01/08/25 00:49 Freq: [id number] Status: Complete Protocol: Activity Type Activity Date Activity User E-sign Co-sign Detail Recorded Client Recorded Date Recorded By Document 01/08/25 03:22 [id number] 01/08/25 03:24 01/08/25 03:22 NIH Stroke Scale [NIHSS] A score of 0 is "normal" or asymptomatic . Total possible score is 42. Inpatient: RN or Physician to activate a stroke alert for onset of new stroke symptoms or with NIHSS increase >/= 3 points. Following change in neurological status, NIHSS will be performed per physician order or more frequently PRN. -1a. Level of Consciousness 0 - Alert; keenly responsive -1b. LOC Questions 0 - Answers BOTH questions correctly -1c. LOC Commands 0 - Performs BOTH tasks correctly -2. Best Gaze 0 - Normal -3. Visual 0 - No visual loss -4. Facial Palsy 1 - Minor paralysis ( flattened nasolabial fold , asymmetry on smiling) -5a. Left Arm 0 - No drift; arm holds 90 ( or 45) degrees for full 10 seconds -5b. Right Arm 0 - No drift; arm holds 90 ( or 45) degrees for full 10 seconds -6a. Left Leg 0 - No drift; leg holds 30- degree position for full 5 seconds -6b. Right Leg 0 - No drift; leg holds 30- degree position for full 5 seconds -7. Limb Ataxia 0 - Absent -8. Sensory 0 - Normal; no sensory loss -9. Best Language 0 - No aphasia; normal -10. Dysarthria 0 - Normal -11. Extinction and Inattention 0 - No abnormality -Total 1 Query Text:A score of 0 is "normal" or asymptomatic. Total possible score is 42 . ED: Notify Physician for NIHSS increase by > / = 3 points. Inpatient: RN or Physician to activate a stroke alert for NIHSS increase of > / = 3 points. Coma Scale [Assess] -Eye Opening Spontaneous -Motor Obeys Commands -Verbal Oriented [Total] -Coma Scale Total 15 NIHSS: Ischemic Stroke/TIA Start: 01/08/25 05:04 Text: For PCU Patients: NIH and Neuro Check every 4 Status: Complete hours, PRN and with change in RN caregiver. Freq: [id number] Protocol: Activity Type Activity Date Activity User E-sign Co-sign Detail Recorded Client Recorded Date Recorded By Document 01/08/25 12:00 [id number] 01/08/25 12:10 01/08/25 12:00 NIH Stroke Scale [NIHSS] A score of 0 is "normal" or asymptomatic . Total possible score is 42. Inpatient: RN or Physician to activate a stroke alert for onset of new stroke symptoms or with NIHSS increase >/= 3 points. Following change in neurological status, NIHSS will be performed per physician order or more frequently PRN. -1a. Level of Consciousness 0 - Alert; keenly responsive -1b. LOC Questions 0 - Answers BOTH questions correctly -1c. LOC Commands 0 - Performs BOTH tasks correctly -2. Best Gaze 0 - Normal -3. Visual 0 - No visual loss -4. Facial Palsy 1 - Minor paralysis ( flattened nasolabial fold , asymmetry on smiling) -5a. Left Arm 0 - No drift; arm holds 90 ( or 45) degrees for full 10 seconds -5b. Right Arm 0 - No drift; arm holds 90 ( or 45) degrees for full 10 seconds -6a. Left Leg 0 - No drift; leg holds 30- degree position for full 5 seconds -6b. Right Leg 0 - No drift; leg holds 30- degree position for full 5 seconds -7. Limb Ataxia 0 - Absent -8. Sensory 0 - Normal; no sensory loss -9. Best Language 0 - No aphasia; normal -10. Dysarthria 0 - Normal -11. Extinction and Inattention 0 - No abnormality -Total 1 Query Text:A score of 0 is "normal" or asymptomatic. Total possible score is 42 . ED: Notify Physician for NIHSS increase by > / = 3 points. Inpatient: RN or Physician to activate a stroke alert for NIHSS increase of > / = 3 points. Coma Scale [Assess] -Eye Opening Spontaneous -Motor Obeys Commands -Verbal Oriented [Total] -Coma Scale Total 15 01/10/25 8881 <Electronically signed by Dianne Stovall DO> Cosigner Signature (if applicable): CC: ~ Signed [facility] Work Phone: [phone]) 981-168807-09-2025 Progress note [facility] Medical Records Department [address] [place] [address] Progress Note - Hospitalist 01/10/25 1823 MR#: [id number] Acct: [id number] Name: BERTA SANCHES Rep #:[id number] : 1945 79 From: Dianne Stovall DO PCP: JARROD Cantu Status:ADM I N Location: [place] [address] Reason for Visit Reason for Visit: Diagnoses Transient cerebral ischemic attack, unspecified (01/07/25) Heart failure, unspecified (01/07/25) Acute kidney failure, unspecified (01/07/25) Chronic kidney disease, stage 3b (01/07/25) Subjective Subjective Patient was seen and examined today, she remains on room air. There is less edema in the patient's upper legs although the patient's input of fluids is greater than her output of urine. Patient remains on IV Lasix drip at this time. Objective Data Objective Data Vital Signs: Vital Signs Temp Pulse Resp BP Pulse Ox O2 Del Method 97.7 F L 85 16 149/54 H 96 Room Air 01/10/25 09:00 01/10/25 09:31 01/10/25 09:00 01/10/25 09:31 01/10/25 10:29 01/10/25 14:00 Oxygen Delivery Method Room Air Weight: 69.1 kg Body Mass Index (BMI) 26.9 Intake & Output: Intake and Output for Last 24 Hours 01/08/25 01/09/25 01/10/25 23:59 23:59 23:59 Intake Total 800 / 800 1449.5 / 1449.5 240 / 240 Output Total 1075 / 1475 1925 / 1925 500 / 500 Balance -275 / -675 -475.5 / -475.5 -260 / -260 Lab / Micro Data 01/08/25 06:06 01/09/25 05:38 Labs: Laboratory Results - last 24 hr 01/10/25 06:43: POC Glucose 134 H 01/10/25 13:02: POC Glucose 133 H 01/10/25 17:10: POC Glucose 126 H Physical Exam Narrative alert, oriented x3 and no apparent distress General Appearance: cooperative, well kempt and well developed Orientation / Consciousness: awake, oriented to person, oriented to place and oriented to time HEENT normocephalic, head/scalp atraumatic and moist oral mucous membranes Eyes PERRL, EOMs intact bilaterally and conjunctivae normal Neck supple, no JVD and thyroid normal General: trachea midline Resp normal respiratory effort, no retractions, no use of accessory muscles and clearto auscultation bilaterally Auscultation: Negative for rales, rhonchi or wheezes Cardio regular rate, regular rhythm, no rub and no gallops Cardio Narrative: There is a 2 or 6 systolic murmur noted at the patient's apex and left sternal border GI normal to inspection, nondistended, normoactive bowel sounds, soft to palpation,non-tender and non-distended Extremity Extremity Narrative: There is generalized pitting edema noted in the patient's upper legs bilaterally, lower legs show no evidence of edema at this time Skin no rashes or lesions noted General Skin Exam: no breakdown Neuro oriented x3, CN's II-XII intact bilaterally, no focal motor deficits and no sensory deficits noted Sensorium / Orientation: awake and alert Speech: speech normal Psych affect normal Assessment & Plan Assessment/Plan (1) CHF exacerbation: QUALIFIERS: Heart failure type: unspecified Qualified Code(s): I50.9 - Heart failure, unspecified (2) Chronic kidney disease, stage 3b: PLAN: Plan 1. Acute on chronic diastolic congestive heart failure-patient remains on IV Lasix drip at this time, she will be reevaluated tomorrow, BMP will be obtained tomorrow 2 essential hypertension-patient will remain on her current medications #3 lower extremity edema secondary to #1-again patient on Lasix drip #4 chronic kidney disease stage IV-complicates care, management, recovery, and prognosis, labs willbe repeated tomorrow, patient will need follow-up with nephrology as an outpatient #5 prediabetes-patient's fasting glucose this morning was 135, BMP will be repeated tomorrow #6 valvular heart disease-patient has a bioprosthetic aortic valve, she has somemitral valve insufficiency, patient will follow-up with cardiology as an outpatient Total clinical time spent by myself addressing the patient's medical issues, reviewing all of her data, and collaborating with patient's care team: 35-minute Charges/Coding Visit Charges Inpatient E&M: 36738 Subs Hosp L2 NIHSS NIHSS Nursing Documentation NIHSS Nursing Documentation: NIHSS: Ischemic Stroke/TIA Start: 01/08/25 00:49 Freq: [id number] Status: Complete Protocol: Activity Type Activity Date Activity User E-sign Co-sign Detail Recorded Client Recorded Date Recorded By Document 01/08/25 03:22 [id number] 01/08/25 03:24 01/08/25 03:22 NIH Stroke Scale [NIHSS] A score of 0 is "normal" or asymptomatic . Total possible score is 42. Inpatient: RN or Physician to activate a stroke alert for onset of new stroke symptoms or with NIHSS increase >/= 3 points. Following change in neurological status, NIHSS will be performed per physician order or more frequently PRN. -1a. Level of Consciousness 0 - Alert; keenly responsive -1b. LOC Questions 0 - Answers BOTH questions correctly -1c. LOC Commands 0 - Performs BOTH tasks correctly -2. Best Gaze 0 - Normal -3. Visual 0 - No visual loss -4. Facial Palsy 1 - Minor paralysis ( flattened nasolabial fold , asymmetry on smiling) -5a. Left Arm 0 - No drift; arm holds 90 ( or 45) degrees for full 10 seconds -5b. Right Arm 0 - No drift; arm holds 90 ( or 45) degrees for full 10 seconds -6a. Left Leg 0 - No drift; leg holds 30- degree position for full 5 seconds -6b. Right Leg 0 - No drift; leg holds 30- degree position for full 5 seconds -7. Limb Ataxia 0 - Absent -8. Sensory 0 - Normal; no sensory loss -9. Best Language 0 - No aphasia; normal -10. Dysarthria 0 - Normal -11. Extinction and Inattention 0 - No abnormality -Total 1 Query Text:A score of 0 is "normal" or asymptomatic. Total possible score is 42 . ED: Notify Physician for NIHSS increase by > / = 3 points. Inpatient: RN or Physician to activate a stroke alert for NIHSS increase of > / = 3 points. Coma Scale [Assess] -Eye Opening Spontaneous -Motor Obeys Commands -Verbal Oriented [Total] -Coma Scale Total 15 NIHSS: Ischemic Stroke/TIA Start: 01/08/25 05:04 Text: For PCU Patients: NIH and Neuro Check every 4 Status: Complete hours, PRN and with change in RN caregiver. Freq: [id number] Protocol: Activity Type Activity Date Activity User E-sign Co-sign Detail Recorded Client Recorded Date Recorded By Document 01/08/25 12:00 [id number] 01/08/25 12:10 01/08/25 12:00 NIH Stroke Scale [NIHSS] A score of 0 is "normal" or asymptomatic . Total possible score is 42. Inpatient: RN or Physician to activate a stroke alert for onset of new stroke symptoms or with NIHSS increase >/= 3 points. Following change in neurological status, NIHSS will be performed per physician order or more frequently PRN. -1a. Level of Consciousness 0 - Alert; keenly responsive -1b. LOC Questions 0 - Answers BOTH questions correctly -1c. LOC Commands 0 - Performs BOTH tasks correctly -2. Best Gaze 0 - Normal -3. Visual 0 - No visual loss -4. Facial Palsy 1 - Minor paralysis ( flattened nasolabial fold , asymmetry on smiling) -5a. Left Arm 0 - No drift; arm holds 90 ( or 45) degrees for full 10 seconds -5b. Right Arm 0 - No drift; arm holds 90 ( or 45) degrees for full 10 seconds -6a. Left Leg 0 - No drift; leg holds 30- degree position for full 5 seconds -6b. Right Leg 0 - No drift; leg holds 30- degree position for full 5 seconds -7. Limb Ataxia 0 - Absent -8. Sensory 0 - Normal; no sensory loss -9. Best Language 0 - No aphasia; normal -10. Dysarthria 0 - Normal -11. Extinction and Inattention 0 - No abnormality -Total 1 Query Text:A score of 0 is "normal" or asymptomatic. Total possible score is 42 . ED: Notify Physician for NIHSS increase by > / = 3 points. Inpatient: RN or Physician to activate a stroke alert for NIHSS increase of > / = 3 points. Coma Scale [Assess] -Eye Opening Spontaneous -Motor Obeys Commands -Verbal Oriented [Total] -Coma Scale Total 15 01/10/25 8848 Cosigner Signature (if applicable): CC: ~ Signed [facility]07-09-2025 Progress note Author Jeremy Mcgarry [facility] Note Date/Time January 10, 2025 11:52 am [facility] Medical Records Department [address] [place] [address] Progress Note - Nephrology 01/10/25 1150 MR#: [id number] Acct: [id number] Name: BERTA SANCHES Rep #:[id number] : 1945 79 From: Jeremy ferris MD PCP: HOWARD CantuC Status:ADM I N Location: [place] [address] Subjective Subjective No new complaints today Objective Data Objective Data Vital Signs: Vital Signs Temp Pulse Resp BP Pulse Ox O2 Del Method 98.6 F 85 19 H 149/54 H 96 Room Air 01/10/25 03:02 01/10/25 09:31 01/10/25 03:02 01/10/25 09:31 01/10/25 10:29 01/10/25 10:29 Oxygen Delivery Method Room Air Weight: 69.1 kg Body Mass Index (BMI) 26.9 Intake & Output: Intake and Output for Last 24 Hours 01/08/25 01/09/25 01/10/25 23:59 23:59 23:59 Intake Total 800 / 800 1449.5 / 1449.5 Output Total 1075 / 1475 1925 / 1925 300 / 300 Balance -275 / -675 -475.5 / -475.5 -300 / -300 Lab / Micro Data 01/08/25 06:06 01/09/25 05:38 Labs: Laboratory Results - last 24 hr 01/09/25 12:03: POC Glucose 214 H 01/09/25 17:07: POC Glucose 111 H 01/10/25 06:43: POC Glucose 134 H Physical Exam Narrative Alert awake oriented x 3 no obvious distress no pallor no icterus no JVD s1s2 no murmurs lungs clear abdomen soft no organomegaly ++ edema no cyanosis Assessment & Plan Assessment/Plan (1) Chronic kidney disease, stage 3b: PLAN: Reviewed records from [facility] where her primary care physician is, from care everywhere from [facility] During her hospitalization in October,[facility] where she was admitted in December. She has had unfortunately 3 hospitalizations within the last 3 months. #1. Heart failure. BNP has been consistently in the thousands. Reviewed medication list, she was supposed to be on Lasix 80 mg / 40 mg but looks like she may be taking 40 mg twice a day. Spironolactone 25 mg once a day. Metolazone 2.5 mg as needed is on the medication list but both patient and have confirmed that she is not taking that. Farxiga is on the medication list but she thinks that she could not take it because it was very expensive. Baseline weight is around 139 pounds. As high as 154 pounds. 2. Renal failure. Baseline creatinine appears to be around 1.3-1.4. She had acute renal failure, required CRRT for about 1 day. Recovered renal function. Most often creatinine in the last 3 months has been between 1.8-2.0. No significant proteinuria. 3. Atherosclerosis. 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 She also has left-sided renal artery stenosis which was confirmed on repeat renal Doppler. She recently saw Dr. Shasta Silva and no intervention was planned since it was unilateral stenosis. Edema is better. She is asking about going home. Walked around without oxygen and felt okay. Okay to discharge from nephrology standpoint Discharge medications include Lasix 80 mg twice a day or Bumex 2 mg twice a day Spironolactone 25 mg once a day Potassium chloride 20 mill equivalents once a day Use metolazone 5 mg as needed for any weight more than 144 pounds to call insurance company about feasibility of getting Farxiga/Jardiance/Steglatro Will arrange follow-up in office next week (2) MONIQUE (acute kidney injury): 01/10/25 1152 <Electronically signed by Jeremy Mcgarry MD> Cosigner Signature (if applicable): CC: ~ Signed [facility] Work Phone: 1(511) 392-339007-09-2025 Progress note [facility] Medical Records Department [address] [place] [address] Progress Note - Nephrology 01/10/25 1150 MR#: [id number] Acct: [id number] Name: BERTA SANCHES Rep #:[id number] : 1945 79 From: Jeremy ferris MD PCP: Deysi Collazo BACK TENDER CYLINDER-C Status:ADM I N Location: [place] [address] Subjective Subjective No new complaints today Objective Data Objective Data Vital Signs: Vital Signs Temp Pulse Resp BP Pulse Ox O2 Del Method 98.6 F 85 19 H 149/54 H 96 Room Air 01/10/25 03:02 01/10/25 09:31 01/10/25 03:02 01/10/25 09:31 01/10/25 10:29 01/10/25 10:29 Oxygen Delivery Method Room Air Weight: 69.1 kg Body Mass Index (BMI) 26.9 Intake & Output: Intake and Output for Last 24 Hours 01/08/25 01/09/25 01/10/25 23:59 23:59 23:59 Intake Total 800 / 800 1449.5 / 1449.5 Output Total 1075 / 1475 1925 / 1925 300 / 300 Balance -275 / -675 -475.5 / -475.5 -300 / -300 Lab / Micro Data 01/08/25 06:06 01/09/25 05:38 Labs: Laboratory Results - last 24 hr 01/09/25 12:03: POC Glucose 214 H 01/09/25 17:07: POC Glucose 111 H 01/10/25 06:43: POC Glucose 134 H Physical Exam Narrative Alert awake oriented x 3 no obvious distress no pallor no icterus no JVD s1s2 no murmurs lungs clear abdomen soft no organomegaly ++ edema no cyanosis Assessment & Plan Assessment/Plan (1) Chronic kidney disease, stage 3b: PLAN: Reviewed records from [facility] where her primary care physician is, from care everywhere from [facility] During her hospitalization in October,[facility] where she was admitted [facility]. She has had unfortunately 3 hospitalizations within the last 3 months. #1. Heart failure. BNP has been consistently in the thousands. Reviewed medication list, she was supposed to be on Lasix 80 mg / 40 mg but looks like she may be taking 40 mg twice a day. Spironolactone 25 mg once a day. Metolazone 2.5 mg as needed is on the medication list but both patient and have confirmed that she is not taking that. Farxiga is on the medication list but she thinks that she could not take it because it was very expensive. Baseline weight is around 139 pounds. As highas 154 pounds. 2. Renal failure. Baseline creatinine appears to be around 1.3-1.4. She had acute renal failure, required CRRT for about 1 day. Recovered renal function. Most often creatinine in the last 3 months has been between 1.8-2.0. No significant proteinuria. 3. Atherosclerosis. 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 She also has left-sided renal artery stenosis which was confirmed on repeat renal Doppler. She recently saw Dr. Shasta Silva and no intervention was planned since it was unilateral stenosis. Edema is better. She is asking about going home. Walked around without oxygen and felt okay. Okay to discharge from nephrology standpoint Discharge medications include Lasix 80 mg twice a day or Bumex 2 mg twice a day Spironolactone 25 mg once a day Potassium chloride 20 mill equivalents once a day Use metolazone 5 mg as needed for any weight more than 144 pounds to call insurance company about feasibility of getting Farxiga/Jardiance/Steglatro Will arrange follow-up in office next week (2) MONIQUE (acute kidney injury): 01/10/25 1152 Cosigner Signature (if applicable): CC: ~ Signed [facility]07-08-2025 Progress note Author Dianne Stovall [facility] Note Date/Time January 09, 2025 2:38p m [facility] Medical Records Department [address] [place] [address] Progress Note - Hospitalist 01/08/25 1849 MR#: [id number] Acct: [id number] Name: BERTA SANCHES SCOTTIE Rep #:[id number] : 1945 79 From: Dianne Stovall DO PCP: JARROD Cantu Status:ADM I N Location: [place] [address] Reason for Visit Reason for Visit: Diagnoses Transient cerebral ischemic attack, unspecified (01/07/25) Heart failure, unspecified (01/07/25) Acute kidney failure, unspecified (01/07/25) Chronic kidney disease, stage 3b (01/07/25) Subjective Subjective Patient was seen and examined today, I talked with her who was in the room at the time of my examination, patient's echocardiogram today showed a normal EF with no significant valvular heart disease. There was no evidence of severe pulmonary hypertension. Patient has pitting edema in the thighs bilaterally. Patient's creatinine is elevated and I had nephrology see the patient, nephrology reviewed her medical record and found that the patient has stenosis in one of her renal arteries, it appears that the patient declined any intervention for this. Patient was also hospitalized recently [facility] for congestive heart failure. Patient told me she wanted to change flosser, I made her an appointment to follow-up with Dr. Huynh as an outpatient. Nephrology recommended that the patient go on the equivalent of 80 mg of Lasix twice a day and metolazone 5 mg daily as well as potassium 20 mEq daily at the time of discharge. Objective Data Objective Data Vital Signs: Vital Signs Temp Pulse Resp BP Pulse Ox O2 Del Method 98.2 F 75 18 149/53 H 99 Room Air 01/08/25 16:53 01/08/25 16:53 01/08/25 16:53 01/08/25 16:53 01/08/25 16:53 01/08/25 16:56 Oxygen Delivery Method Room Air Weight: 68.8 kg Body Mass Index (BMI) 26.9 Intake & Output: Intake and Output for Last 24 Hours 01/06/25 01/07/25 01/08/25 23:59 23:59 23:59 Intake Total 120 / 120 Output Total 675 / 675 Balance 120 / 120 -675 / -675 Lab / Micro Data 01/08/25 06:06 01/09/25 05:38 Labs: Laboratory Results - last 24 hr 01/07/25 22:51: POC Glucose 166 H 01/08/25 06:06: WBC 6.3, RBC 3.18 L, Hgb 9.0 L, Hct 28.4 L, MCV 89.3, MCH 28.3, MCHC 31.7 L, RDW Std Deviation 64.7 H, RDW Coeff of Yonis 19.8 H, Plt Count 155, MPV 9.6, Immature Gran % (Auto) 0.300, Neut % (Auto) 47.3, Lymph % (Auto) 33.8, [place] % (Auto) 15.5 H, Eos % (Auto) 2.1, Baso % (Auto) 1.0, Absolute Neuts (auto)3.0, Absolute Lymphs (auto) 2.11, Nucleated RBC % 0, Differential Comment SCANNED, Platelet Estimate ADEQUATE, RBC Morphology NORM C+C, Sodium 130 L, Potassium 4.1, Chloride 93 L, Carbon Dioxide 25.7, Anion Gap 12, BUN 45 H, Creatinine 1.79 H, Estim Creat Clear Calc 23.72 L, Est GFR (MDRD) Non-Af 28 L, BUN/Creatinine Ratio 24.9 H, Glucose 129 H, Hemoglobin A1c 7.0 H, Calcium 8.8, Magnesium 2.4 H, Triglycerides 69, Cholesterol 68, LDL Cholesterol, Calc 26, VLDLCholesterol 14, HDL Cholesterol 29 L, Cholesterol/HDL Ratio 2.38, TSH 4.850 H 01/08/25 06:54: POC Glucose 124 H 01/08/25 12:14: POC Glucose 136 H 01/08/25 16:43: POC Glucose 184 H Radiography Diagnostic Testing: Radiology Impression Echocardiogram 01/07/25 17:42 Interpretation Summary Normal LV size. The left ventricular ejection fraction is 50 %. Stage 3 diastolic dysfunction. Mean transmitral valve gradient 5 mmHg. Moderate mitral stenosis Heart rate at the time of examination was 79 bpm ICD or pacer leads identified within the right ventricle. D shaped septum in diastole. Moderate concentric left ventricular hypertrophy. Bioprosthetic aortic valve. Mean aortic valve gradient 11 mmHg. Ordering Physician: Radha Heller Performed By: Edy Victor RCS Brain CT 01/07/25 22:53 IMPRESSION: No intra-axial or extra-axial hemorrhage. No acute process. Age-related changes of involution and chronic small-vessel ischemic disease Navigator to call report. 11:17 p.m. Reading Location: [facility] Head/Neck CTA 01/07/25 23:08 IMPRESSION: BILATERAL CALCIFIC PLAQUE, PRIMARILY AT THE BIFURCATION BILATERALLY LESS THAN 50% STENOSIS. OCCASIONALLY OTHER PLAQUES ARE SEEN BUT NON FLOW LIMITING. NO LARGE VESSEL OCCLUSION. Requested contact with the referring physician at 11:55 p.m. verbal report to charge nurse Melida at 12:05 a.m. Reading Location: [facility] Carotid Duplex 01/08/25 05:04 Interpretation Summary Mild (<50%) stenosis right extracranial internal carotid. Mild (<50%) stenosis left extracranial internal carotid. Patent and antegrade vertebrals bilaterally. Ordering Physician: Carla Ha Referring Physician: Deysi Collazo Performed By: Sony Perez RVT Physical Exam Const alert, oriented x3 and no apparent distress General Appearance: cooperative, well kempt and well developed Orientation / Consciousness: awake, oriented to person, oriented to place and oriented to time HEENT normocephalic, head/scalp atraumatic and moist oral mucous membranes Eyes PERRL, EOMs intact bilaterally and conjunctivae normal Neck supple, no JVD and thyroid normal General: trachea midline Resp normal respiratory effort, no retractions, no use of accessory muscles and clearto auscultation bilaterally Auscultation: Negative for rales, rhonchi or wheezes Cardio regular rate, regular rhythm, no rub and no gallops Cardio Narrative: There is a 2 or 6 systolic murmur noted at the patient's apex and left sternal border GI normal to inspection, nondistended, normoactive bowel sounds, soft to palpation,non-tender and non-distended Extremity Extremity Narrative: There is generalized pitting edema noted in the patient's upper legs bilaterally, lower legs show no evidence of edema at this time Skin no rashes or lesions noted General Skin Exam: no breakdown Neuro oriented x3, CN's II-XII intact bilaterally, no focal motor deficits and no sensory deficits noted Sensorium / Orientation: awake and alert Speech: speech normal Psych affect normal Assessment & Plan Assessment/Plan (1) Chronic kidney disease, stage 3b: PLAN: Plan 1. Acute on chronic diastolic congestive heart failure-I have decided to place the patient on Lasix drip at this time, I had nephrology see the patient, she will need follow-up with nephrology as an outpatient due to her elevated creatinine #2 essential hypertension-patient will remain on her current medications #3 lower extremity edema secondary to #1-again patient will be placed on Lasix drip #4 chronic kidney disease stage IV-complicates care, management, recovery, and prognosis, labs will be repeated tomorrow, patient will need follow-up with nephrology #5 prediabetes-patient's fasting glucose this morning was 129, BMP will be repeated tomorrow #6 valvular heart disease-patient has a bioprosthetic aortic valve, she has somemitral valve insufficiency, patient will follow-up with cardiology as an outpatient NIHSS NIHSS Nursing Documentation NIHSS Nursing Documentation: NIHSS: Ischemic Stroke/TIA Start: 01/08/25 00:49 Freq: [id number] Status: Complete Protocol: Activity Type Activity Date Activity User E-sign Co-sign Detail Recorded Client Recorded Date Recorded By Document 01/08/25 03:22 [id number] 01/08/25 03:24 01/08/25 03:22 NIH Stroke Scale [NIHSS] A score of 0 is "normal" or asymptomatic . Total possible score is 42. Inpatient: RN or Physician to activate a stroke alert for onset of new stroke symptoms or with NIHSS increase >/= 3 points. Following change in neurological status, NIHSS will be performed per physician order or more frequently PRN. -1a. Level of Consciousness 0 - Alert; keenly responsive -1b. LOC Questions 0 - Answers BOTH questions correctly -1c. LOC Commands 0 - Performs BOTH tasks correctly -2. Best Gaze 0 - Normal -3. Visual 0 - No visual loss -4. Facial Palsy 1 - Minor paralysis ( flattened nasolabial fold , asymmetry on smiling) -5a. Left Arm 0 - No drift; arm holds 90 ( or 45) degrees for full 10 seconds -5b. Right Arm 0 - No drift; arm holds 90 ( or 45) degrees for full 10 seconds -6a. Left Leg 0 - No drift; leg holds 30- degree position for full 5 seconds -6b. Right Leg 0 - No drift; leg holds 30- degree position for full 5 seconds -7. Limb Ataxia 0 - Absent -8. Sensory 0 - Normal; no sensory loss -9. Best Language 0 - No aphasia; normal -10. Dysarthria 0 - Normal -11. Extinction and Inattention 0 - No abnormality -Total 1 Query Text:A score of 0 is "normal" or asymptomatic. Total possible score is 42 . ED: Notify Physician for NIHSS increase by > / = 3 points. Inpatient: RN or Physician to activate a stroke alert for NIHSS increase of > / = 3 points. Coma Scale [Assess] -Eye Opening Spontaneous -Motor Obeys Commands -Verbal Oriented [Total] -Coma Scale Total 15 NIHSS: Ischemic Stroke/TIA Start: 01/08/25 05:04 Text: For PCU Patients: NIH and Neuro Check every 4 Status: Complete hours, PRN and with change in RN caregiver. Freq: [id number] Protocol: Activity Type Activity Date Activity User E-sign Co-sign Detail Recorded Client Recorded Date Recorded By Document 01/08/25 12:00 [id number] 01/08/25 12:10 01/08/25 12:00 NIH Stroke Scale [NIHSS] A score of 0 is "normal" or asymptomatic . Total possible score is 42. Inpatient: RN or Physician to activate a stroke alert for onset of new stroke symptoms or with NIHSS increase >/= 3 points. Following change in neurological status, NIHSS will be performed per physician order or more frequently PRN. -1a. Level of Consciousness 0 - Alert; keenly responsive -1b. LOC Questions 0 - Answers BOTH questions correctly -1c. LOC Commands 0 - Performs BOTH tasks correctly -2. Best Gaze 0 - Normal -3. Visual 0 - No visual loss -4. Facial Palsy 1 - Minor paralysis ( flattened nasolabial fold , asymmetry on smiling) -5a. Left Arm 0 - No drift; arm holds 90 ( or 45) degrees for full 10 seconds -5b. Right Arm 0 - No drift; arm holds 90 ( or 45) degrees for full 10 seconds -6a. Left Leg 0 - No drift; leg holds 30- degree position for full 5 seconds -6b. Right Leg 0 - No drift; leg holds 30- degree position for full 5 seconds -7. Limb Ataxia 0 - Absent -8. Sensory 0 - Normal; no sensory loss -9. Best Language 0 - No aphasia; normal -10. Dysarthria 0 - Normal -11. Extinction and Inattention 0 - No abnormality -Total 1 Query Text:A score of 0 is "normal" or asymptomatic. Total possible score is 42 . ED: Notify Physician for NIHSS increase by > / = 3 points. Inpatient: RN or Physician to activate a stroke alert for NIHSS increase of > / = 3 points. Coma Scale [Assess] -Eye Opening Spontaneous -Motor Obeys Commands -Verbal Oriented [Total] -Coma Scale Total 15 01/09/25 0902 <Electronically signed by Dianne Stovall DO> Cosigner Signature (if applicable): CC: ~ Signed ADDENDUM by Dr. Dianne Stovall DO on 01/09/25 at 1438 Addendum Total clinical time spent by myself addressing the patient's medical issues, reviewing all of her data, and collaborating with patient's care team: 35 minutes Visit Charges Inpatient E&M: 88705 Subs Hosp L2 01/09/25 1438<Electronically signed by Dianne Stovall DO> Cosigner Signature (if applicable): cc: ~* Signed [facility] Work Phone: 1(777) 768-204107-08-2025 Progress note Author Dianne Stovall [facility] Note Date/Time January 09, 2025 2:37p m [facility] Medical Records Department [address] [place] [address] Progress Note - Hospitalist 01/09/25 1434 MR#: [id number] Acct: [id number] Name: BERTA SANCHES SCOTTIE Rep #:[id number] : 1945 79 From: Dianne Stovall DO PCP: JARROD Cantu Status:ADM I N Location: [place] [address] Reason for Visit Reason for Visit: Diagnoses Transient cerebral ischemic attack, unspecified (01/07/25) Heart failure, unspecified (01/07/25) Acute kidney failure, unspecified (01/07/25) Chronic kidney disease, stage 3b (01/07/25) Subjective Subjective Patient was seen and examined today, she has less edema in her upper legs on examination today. Creatinine bumped up slightly today, I will recheck a BMP tomorrow. Objective Data Objective Data Vital Signs: Vital Signs Temp Pulse Resp BP Pulse Ox O2 Del Method 97.7 F L 86 17 121/61 H 97 Room Air 01/09/25 09:45 01/09/25 09:52 01/09/25 09:45 01/09/25 09:45 01/09/25 09:45 01/09/25 10:00 Oxygen Delivery Method Room Air Weight: 70 kg Body Mass Index (BMI) 27.3 Intake & Output: Intake and Output for Last 24 Hours 01/07/25 01/08/25 01/09/25 23:59 23:59 23:59 Intake Total 120 / 120 800 / 800 Output Total 1075 / 1475 1050 / 1050 Balance 120 / 120 -275 / -675 -1050 / -1050 Lab / Micro Data 01/08/25 06:06 01/09/25 05:38 Labs: Laboratory Results - last 24 hr 01/08/25 16:43: POC Glucose 184 H 01/09/25 05:38: Sodium 133, Potassium 4.5, Chloride 95 L, Carbon Dioxide 24.5, Anion Gap 13, BUN 44 H, Creatinine 1.85 H, Estim Creat Clear Calc 23.14 L, Est GFR (MDRD) Non-Af 27 L, BUN/Creatinine Ratio 23.6 H, Glucose 135 H, Calcium 8.9 01/09/25 06:44: POC Glucose 132 H 01/09/25 12:03: POC Glucose 214 H Physical Exam Narrative alert, oriented x3 and no apparent distress General Appearance: cooperative, well kempt and well developed Orientation / Consciousness: awake, oriented to person, oriented to place and oriented to time HEENT normocephalic, head/scalp atraumatic and moist oral mucous membranes Eyes PERRL, EOMs intact bilaterally and conjunctivae normal Neck supple, no JVD and thyroid normal General: trachea midline Resp normal respiratory effort, no retractions, no use of accessory muscles and clearto auscultation bilaterally Auscultation: Negative for rales, rhonchi or wheezes Cardio regular rate, regular rhythm, no rub and no gallops Cardio Narrative: There is a 2 or 6 systolic murmur noted at the patient's apex and left sternal border GI normal to inspection, nondistended, normoactive bowel sounds, soft to palpation,non-tender and non-distended Extremity Extremity Narrative: There is generalized pitting edema noted in the patient's upper legs bilaterally, lower legs show no evidence of edema at this time Skin no rashes or lesions noted General Skin Exam: no breakdown Neuro oriented x3, CN's II-XII intact bilaterally, no focal motor deficits and no sensory deficits noted Sensorium / Orientation: awake and alert Speech: speech normal Psych affect normal Assessment & Plan Assessment/Plan (1) CHF exacerbation: QUALIFIERS: Heart failure type: unspecified Qualified Code(s): I50.9 - Heart failure, unspecified (2) Chronic kidney disease, stage 3b: PLAN: Plan 1. Acute on chronic diastolic congestive heart failure-patient remains on Lasixdrip at this time, I will reevaluate her tomorrow #2 essential hypertension-patient will remain on her current medications #3 lower extremity edema secondary to #1-again patient will continue on Lasix drip #4 chronic kidney disease stage IV-complicates care, management, recovery, and prognosis, labs will be repeated tomorrow, patient will need follow-up with nephrology #5 prediabetes-patient's fasting glucose this morning was 133, BMP will be repeated tomorrow #6 valvular heart disease-patient has a bioprosthetic aortic valve, she has somemitral valve insufficiency, patient will follow-up with cardiology as an outpatient Total clinical time spent by myself addressing the patient's medical issues, reviewing all of her data, and collaborating with the patient's care team: 35 minutes Charges/Coding Visit Charges Inpatient E&M: 33676 Subs Hosp L2 NIHSS NIHSS Nursing Documentation NIHSS Nursing Documentation: NIHSS: Ischemic Stroke/TIA Start: 01/08/25 00:49 Freq: [id number] Status: Complete Protocol: Activity Type Activity Date Activity User E-sign Co-sign Detail Recorded Client Recorded Date Recorded By Document 01/08/25 03:22 [id number] 01/08/25 03:24 01/08/25 03:22 NIH Stroke Scale [NIHSS] A score of 0 is "normal" or asymptomatic . Total possible score is 42. Inpatient: RN or Physician to activate a stroke alert for onset of new stroke symptoms or with NIHSS increase >/= 3 points. Following change in neurological status, NIHSS will be performed per physician order or more frequently PRN. -1a. Level of Consciousness 0 - Alert; keenly responsive -1b. LOC Questions 0 - Answers BOTH questions correctly -1c. LOC Commands 0 - Performs BOTH tasks correctly -2. Best Gaze 0 - Normal -3. Visual 0 - No visual loss -4. Facial Palsy 1 - Minor paralysis ( flattened nasolabial fold , asymmetry on smiling) -5a. Left Arm 0 - No drift; arm holds 90 ( or 45) degrees for full 10 seconds -5b. Right Arm 0 - No drift; arm holds 90 ( or 45) degrees for full 10 seconds -6a. Left Leg 0 - No drift; leg holds 30- degree position for full 5 seconds -6b. Right Leg 0 - No drift; leg holds 30- degree position for full 5 seconds -7. Limb Ataxia 0 - Absent -8. Sensory 0 - Normal; no sensory loss -9. Best Language 0 - No aphasia; normal -10. Dysarthria 0 - Normal -11. Extinction and Inattention 0 - No abnormality -Total 1 Query Text:A score of 0 is "normal" or asymptomatic. Total possible score is 42 . ED: Notify Physician for NIHSS increase by > / = 3 points. Inpatient: RN or Physician to activate a stroke alert for NIHSS increase of > / = 3 points. Coma Scale [Assess] -Eye Opening Spontaneous -Motor Obeys Commands -Verbal Oriented [Total] -Coma Scale Total 15 NIHSS: Ischemic Stroke/TIA Start: 01/08/25 05:04 Text: For PCU Patients: NIH and Neuro Check every 4 Status: Complete hours, PRN and with change in RN caregiver. Freq: [id number] Protocol: Activity Type Activity Date Activity User E-sign Co-sign Detail Recorded Client Recorded Date Recorded By Document 01/08/25 12:00 [id number] 01/08/25 12:10 01/08/25 12:00 NIH Stroke Scale [NIHSS] A score of 0 is "normal" or asymptomatic . Total possible score is 42. Inpatient: RN or Physician to activate a stroke alert for onset of new stroke symptoms or with NIHSS increase >/= 3 points. Following change in neurological status, NIHSS will be performed per physician order or more frequently PRN. -1a. Level of Consciousness 0 - Alert; keenly responsive -1b. LOC Questions 0 - Answers BOTH questions correctly -1c. LOC Commands 0 - Performs BOTH tasks correctly -2. Best Gaze 0 - Normal -3. Visual 0 - No visual loss -4. Facial Palsy 1 - Minor paralysis ( flattened nasolabial fold , asymmetry on smiling) -5a. Left Arm 0 - No drift; arm holds 90 ( or 45) degrees for full 10 seconds -5b. Right Arm 0 - No drift; arm holds 90 ( or 45) degrees for full 10 seconds -6a. Left Leg 0 - No drift; leg holds 30- degree position for full 5 seconds -6b. Right Leg 0 - No drift; leg holds 30- degree position for full 5 seconds -7. Limb Ataxia 0 - Absent -8. Sensory 0 - Normal; no sensory loss -9. Best Language 0 - No aphasia; normal -10. Dysarthria 0 - Normal -11. Extinction and Inattention 0 - No abnormality -Total 1 Query Text:A score of 0 is "normal" or asymptomatic. Total possible score is 42 . ED: Notify Physician for NIHSS increase by > / = 3 points. Inpatient: RN or Physician to activate a stroke alert for NIHSS increase of > / = 3 points. Coma Scale [Assess] -Eye Opening Spontaneous -Motor Obeys Commands -Verbal Oriented [Total] -Coma Scale Total 15 01/09/25 1437 <Electronically signed by Dianne Stovall DO> Cosigner Signature (if applicable): CC: ~ Signed [facility] Work Phone: 1(124) 768-115607-08-2025 Progress note [facility] Medical Records Department [address] [place] [address] Progress Note - Hospitalist 01/08/25 1840 MR#: [id number] Acct: [id number] Name: BERTA SANCHES Rep #:[id number] : 1945 79 From: Dianne Stovall DO PCP: JARROD Cantu Status:ADM I N Location: [place] [address] Reason for Visit Reason for Visit: Diagnoses Transient cerebral ischemic attack, unspecified (01/07/25) Heart failure, unspecified (01/07/25) Acute kidney failure, unspecified (01/07/25) Chronic kidney disease, stage 3b (01/07/25) Subjective Subjective Patient was seen and examined today, I talked with her who was in the room at the time of my examination, patient's echocardiogram today showed a normal EF with no significant valvular heart disease. There was no evidence of severe pulmonary hypertension. Patient has pitting edema in the thighs bilaterally. 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 Patient was also hospitalized [facility] for congestive heart failure. Patient told me she wanted to change flosser, I made her an appointment to follow-up with Dr. Huynh as an outpatient. Nephrology recommended that the patient go on the equivalent of 80 mg of Lasix twice a day and metolazone 5 mg daily as well as potassium 20 mEq daily at the time of discharge. Objective Data Objective Data Vital Signs: Vital Signs Temp Pulse Resp BP Pulse Ox O2 Del Method 98.2 F 75 18 149/53 H 99 Room Air 01/08/25 16:53 01/08/25 16:53 01/08/25 16:53 01/08/25 16:53 01/08/25 16:53 01/08/25 16:56 Oxygen Delivery Method Room Air Weight: 68.8 kg Body Mass Index (BMI) 26.9 Intake & Output: Intake and Output for Last 24 Hours 01/06/25 01/07/25 01/08/25 23:59 23:59 23:59 Intake Total 120 / 120 Output Total 675 / 675 Balance 120 / 120 -675 / -675 Lab / Micro Data 01/08/25 06:06 01/09/25 05:38 Labs: Laboratory Results - last 24 hr 01/07/25 22:51: POC Glucose 166 H 01/08/25 06:06: WBC 6.3, RBC 3.18 L, Hgb 9.0 L, Hct 28.4 L, MCV 89.3, MCH 28.3, MCHC 31.7 L, RDW Std Deviation 64.7 H, RDW Coeff of Yonis 19.8 H, Plt Count 155, MPV 9.6, Immature Gran % (Auto) 0.300, Neut % (Auto) 47.3, Lymph % (Auto) 33.8, [place] % (Auto) 15.5 H, Eos % (Auto) 2.1, Baso % (Auto) 1.0, Absolute Neuts (auto)3.0, Absolute Lymphs (auto) 2.11, Nucleated RBC % 0, Differential Comment SCANNED, Platelet Estimate ADEQUATE, RBC Morphology NORM C+C, Sodium 130 L, Potassium 4.1, Chloride 93 L, Carbon Dioxide 25.7, Anion Gap 12, BUN 45 H, Creatinine 1.79 H, Estim Creat Clear Calc 23.72 L, Est GFR (MDRD) Non-Af 28 L, BUN/Creatinine Ratio 24.9 H, Glucose 129 H, Hemoglobin A1c 7.0 H, Calcium 8.8, Magnesium 2.4 H, Triglycerides 69, Cholesterol 68, LDL Cholesterol, Calc 26, VLDLCholesterol 14, HDL Cholesterol 29 L, Cholesterol/HDL Ratio 2.38, TSH 4.850 H 01/08/25 06:54: POC Glucose 124 H 01/08/25 12:14: POC Glucose 136 H 01/08/25 16:43: POC Glucose 184 H Radiography Diagnostic Testing: Radiology Impression Echocardiogram 01/07/25 17:42 Interpretation Summary Normal LV size. The left ventricular ejection fraction is 50 %. Stage 3 diastolic dysfunction. Mean transmitral valve gradient 5 mmHg. Moderate mitral stenosis Heart rate at the time of examination was 79 bpm ICD or pacer leads identified within the right ventricle. D shaped septum in diastole. Moderate concentric left ventricular hypertrophy. Bioprosthetic aortic valve. Mean aortic valve gradient 11 mmHg. Ordering Physician: Radha Heller Performed By: Edy Victor RCS Brain CT 01/07/25 22:53 IMPRESSION: No intra-axial or extra-axial hemorrhage. No acute process. Age-related changes of involution and chronic small-vessel ischemic disease Navigator to call report. 11:17 p.m. Reading Location: [facility] Head/Neck CTA 01/07/25 23:08 IMPRESSION: BILATERAL CALCIFIC PLAQUE, PRIMARILY AT THE BIFURCATION BILATERALLY LESS THAN 50% STENOSIS. OCCASIONALLY OTHER PLAQUES ARE SEEN BUT NON FLOW LIMITING. NO LARGE VESSEL OCCLUSION. Requested contact with the referring physician at 11:55 p.m. verbal report to charge nurse Melida at12:05 a.m. Reading Location: [facility] Carotid Duplex 01/08/25 05:04 Interpretation Summary Mild (<50%) stenosis right extracranial internal carotid. Mild (<50%) stenosis left extracranial internal carotid. Patent and antegrade vertebrals bilaterally. Ordering Physician: Carla Ha Referring Physician: Deysi Collazo Performed By: Sony Perez RVT Physical Exam Const alert, oriented x3 and no apparent distress General Appearance: cooperative, well kempt and well developed Orientation / Consciousness: awake, oriented to person, oriented to place and oriented to time HEENT normocephalic, head/scalp atraumatic and moist oral mucous membranes Eyes PERRL, EOMs intact bilaterally and conjunctivae normal Neck supple, no JVD and thyroid normal General: trachea midline Resp normal respiratory effort, no retractions, no use of accessory muscles and clearto auscultation bilaterally Auscultation: Negative for rales, rhonchi or wheezes Cardio regular rate, regular rhythm, no rub and no gallops Cardio Narrative: There is a 2 or 6 systolic murmur noted at the patient's apex and left sternal border GI normal to inspection, nondistended, normoactive bowel sounds, soft to palpation,non-tender and non-distended Extremity Extremity Narrative: There is generalized pitting edema noted in the patient's upper legs bilaterally, lower legs show no evidence of edema at this time Skin no rashes or lesions noted General Skin Exam: no breakdown Neuro oriented x3, CN's II-XII intact bilaterally, no focal motor deficits and no sensory deficits noted Sensorium / Orientation: awake and alert Speech: speech normal Psych affect normal Assessment & Plan Assessment/Plan (1) Chronic kidney disease, stage 3b: PLAN: Plan 1. Acute on chronic diastolic congestive heart failure-I have decided to place the patient on Lasixdrip at this time, I had nephrology see the patient, she will need follow-up with nephrology as an outpatient due to her elevated creatinine #2 essential hypertension-patient will remain on her current medications #3 lower extremity edema secondary to #1-again patient will be placed on Lasix drip #4 chronic kidney disease stage IV-complicates care, management, recovery, and prognosis, labs willbe repeated tomorrow, patient will need follow-up with nephrology #5 prediabetes-patient's fasting glucose this morning was 129, BMP will be repeated tomorrow #6 valvular heart disease-patient has a bioprosthetic aortic valve, she has somemitral valve insufficiency, patient will follow-up with cardiology as an outpatient NIHSS NIHSS Nursing Documentation NIHSS Nursing Documentation: NIHSS: Ischemic Stroke/TIA Start: 01/08/25 00:49 Freq: [id number] Status: Complete Protocol: Activity Type Activity Date Activity User E-sign Co-sign Detail Recorded Client Recorded Date Recorded By Document 01/08/25 03:22 [id number] 01/08/25 03:24 01/08/25 03:22 NIH Stroke Scale [NIHSS] A score of 0 is "normal" or asymptomatic . Total possible score is 42. Inpatient: RN or Physician to activate a stroke alert for onset of new stroke symptoms or with NIHSS increase >/= 3 points. Following change in neurological status, NIHSS will be performed per physician order or more frequently PRN. -1a. Level of Consciousness 0 - Alert; keenly responsive -1b. LOC Questions 0 - Answers BOTH questions correctly -1c. LOC Commands 0 - Performs BOTH tasks correctly -2. Best Gaze 0 - Normal -3. Visual 0 - No visual loss -4. Facial Palsy 1 - Minor paralysis ( flattened nasolabial fold , asymmetry on smiling) -5a. Left Arm 0 - No drift; arm holds 90 ( or 45) degrees for full 10 seconds -5b. Right Arm 0 - No drift; arm holds 90 ( or 45) degrees for full 10 seconds -6a. Left Leg 0 - No drift; leg holds 30- degree position for full 5 seconds -6b. Right Leg 0 - No drift; leg holds 30- degree position for full 5 seconds -7. Limb Ataxia 0 - Absent -8. Sensory 0 - Normal; no sensory loss -9. Best Language 0 - No aphasia; normal -10. Dysarthria 0 - Normal -11. Extinction and Inattention 0 - No abnormality -Total 1 Query Text:A score of 0 is "normal" or asymptomatic. Total possible score is 42 . ED: Notify Physician for NIHSS increase by > / = 3 points. Inpatient: RN or Physician to activate a stroke alert for NIHSS increase of > / = 3 points. Coma Scale [Assess] -Eye Opening Spontaneous -Motor Obeys Commands -Verbal Oriented [Total] -Coma Scale Total 15 NIHSS: Ischemic Stroke/TIA Start: 01/08/25 05:04 Text: For PCU Patients: NIH and Neuro Check every 4 Status: Complete hours, PRN and with change in RN caregiver. Freq: [id number] Protocol: Activity Type Activity Date Activity User E-sign Co-sign Detail Recorded Client Recorded Date Recorded By Document 01/08/25 12:00 [id number] 01/08/25 12:10 01/08/25 12:00 NIH Stroke Scale [NIHSS] A score of 0 is "normal" or asymptomatic . Total possible score is 42. Inpatient: RN or Physician to activate a stroke alert for onset of new stroke symptoms or with NIHSS increase >/= 3 points. Following change in neurological status, NIHSS will be performed per physician order or more frequently PRN. -1a. Level of Consciousness 0 - Alert; keenly responsive -1b. LOC Questions 0 - Answers BOTH questions correctly -1c. LOC Commands 0 - Performs BOTH tasks correctly -2. Best Gaze 0 - Normal -3. Visual 0 - No visual loss -4. Facial Palsy 1 - Minor paralysis ( flattened nasolabial fold , asymmetry on smiling) -5a. Left Arm 0 - No drift; arm holds 90 ( or 45) degrees for full 10 seconds -5b. Right Arm 0 - No drift; arm holds 90 ( or 45) degrees for full 10 seconds -6a. Left Leg 0 - No drift; leg holds 30- degree position for full 5 seconds -6b. Right Leg 0 - No drift; leg holds 30- degree position for full 5 seconds -7. Limb Ataxia 0 - Absent -8. Sensory 0 - Normal; no sensory loss -9. Best Language 0 - No aphasia; normal -10. Dysarthria 0 - Normal -11. Extinction and Inattention 0 - No abnormality -Total 1 Query Text:A score of 0 is "normal" or asymptomatic. Total possible score is 42 . ED: Notify Physician for NIHSS increase by > / = 3 points. Inpatient: RN or Physician to activate a stroke alert for NIHSS increase of > / = 3 points. Coma Scale [Assess] -Eye Opening Spontaneous -Motor Obeys Commands -Verbal Oriented [Total] -Coma Scale Total 15 01/09/25 0902 Cosigner Signature (if applicable): CC: ~ Signed ADDENDUM by Dr. Dianne Stovall, DO on 01/09/25 at 1438 Addendum Total clinical time spent by myself addressing the patient's medical issues, reviewing all of her data, and collaborating with patient's care team: 35 minutes Visit Charges Inpatient E&M: 27643 Subs Hosp L2 01/09/25 1438 Cosigner Signature (if applicable): cc: ~* Signed [facility]07-08-2025 Progress note [facility] Medical Records Department [address] [place] [address] Progress Note - Hospitalist 01/09/25 1434 MR#: [id number] Acct: [id number] Name: BERTA SANCHES Rep #:[id number] : 1945 79 From: Dianne Stovall DO PCP: JARROD Cantu Status:ADM I N Location: [place] [address] Reason for Visit Reason for Visit: Diagnoses Transient cerebral ischemic attack, unspecified (01/07/25) Heart failure, unspecified (01/07/25) Acute kidney failure, unspecified (01/07/25) Chronic kidney disease, stage 3b (01/07/25) Subjective Subjective Patient was seen and examined today, she has less edema in her upper legs on examination today. Creatinine bumped up slightly today, I will recheck a BMP tomorrow. Objective Data Objective Data Vital Signs: Vital Signs Temp Pulse Resp BP Pulse Ox O2 Del Method 97.7 F L 86 17 121/61 H 97 Room Air 01/09/25 09:45 01/09/25 09:52 01/09/25 09:45 01/09/25 09:45 01/09/25 09:45 01/09/25 10:00 Oxygen Delivery Method Room Air Weight: 70 kg Body Mass Index (BMI) 27.3 Intake & Output: Intake and Output for Last 24 Hours 01/07/25 01/08/25 01/09/25 23:59 23:59 23:59 Intake Total 120 / 120 800 / 800 Output Total 1075 / 1475 1050 / 1050 Balance 120 / 120 -275 / -675 -1050 / -1050 Lab / Micro Data 01/08/25 06:06 01/09/25 05:38 Labs: Laboratory Results - last 24 hr 01/08/25 16:43: POC Glucose 184 H 01/09/25 05:38: Sodium 133, Potassium 4.5, Chloride 95 L, Carbon Dioxide 24.5, Anion Gap 13, BUN 44H, Creatinine 1.85 H, Estim Creat Clear Calc 23.14 L, Est GFR (MDRD) Non-Af 27 L, BUN/Creatinine Ratio 23.6 H, Glucose 135 H, Calcium 8.9 01/09/25 06:44: POC Glucose 132 H 01/09/25 12:03: POC Glucose 214 H Physical Exam Narrative alert, oriented x3 and no apparent distress General Appearance: cooperative, well kempt and well developed Orientation / Consciousness: awake, oriented to person, oriented to place and oriented to time HEENT normocephalic, head/scalp atraumatic and moist oral mucous membranes Eyes PERRL, EOMs intact bilaterally and conjunctivae normal Neck supple, no JVD and thyroid normal General: trachea midline Resp normal respiratory effort, no retractions, no use of accessory muscles and clearto auscultation bilaterally Auscultation: Negative for rales, rhonchi or wheezes Cardio regular rate, regular rhythm, no rub and no gallops Cardio Narrative: There is a 2 or 6 systolic murmur noted at the patient's apex and left sternal border GI normal to inspection, nondistended, normoactive bowel sounds, soft to palpation,non-tender and non-distended Extremity Extremity Narrative: There is generalized pitting edema noted in the patient's upper legs bilaterally, lower legs show no evidence of edema at this time Skin no rashes or lesions noted General Skin Exam: no breakdown Neuro oriented x3, CN's II-XII intact bilaterally, no focal motor deficits and no sensory deficits noted Sensorium / Orientation: awake and alert Speech: speech normal Psych affect normal Assessment & Plan Assessment/Plan (1) CHF exacerbation: QUALIFIERS: Heart failure type: unspecified Qualified Code(s): I50.9 - Heart failure, unspecified (2) Chronic kidney disease, stage 3b: PLAN: Plan 1. Acute on chronic diastolic congestive heart failure-patient remains on Lasixdrip at this time, Iwill reevaluate her tomorrow #2 essential hypertension-patient will remain on her current medications #3 lower extremity edema secondary to #1-again patient will continue on Lasix drip #4 chronic kidney disease stage IV-complicates care, management, recovery, and prognosis, labs willbe repeated tomorrow, patient will need follow-up with nephrology #5 prediabetes-patient's fasting glucose this morning was 133, BMP will be repeated tomorrow #6 valvular heart disease-patient has a bioprosthetic aortic valve, she has somemitral valve insufficiency, patient will follow-up with cardiology as an outpatient Total clinical time spent by myself addressing the patient's medical issues, reviewing all of her data, and collaborating with the patient's care team: 35 minutes Charges/Coding Visit Charges Inpatient E&M: 74017 Subs Hosp L2 NIHSS NIHSS Nursing Documentation NIHSS Nursing Documentation: NIHSS: Ischemic Stroke/TIA Start: 01/08/25 00:49 Freq: [id number] Status: Complete Protocol: Activity Type Activity Date Activity User E-sign Co-sign Detail Recorded Client Recorded Date Recorded By Document 01/08/25 03:22 [id number] 01/08/25 03:24 01/08/25 03:22 NIH Stroke Scale [NIHSS] A score of 0 is "normal" or asymptomatic . Total possible score is 42. Inpatient: RN or Physician to activate a stroke alert for onset of new stroke symptoms or with NIHSS increase >/= 3 points. Following change in neurological status, NIHSS will be performed per physician order or more frequently PRN. -1a. Level of Consciousness 0 - Alert; keenly responsive -1b. LOC Questions 0 - Answers BOTH questions correctly -1c. LOC Commands 0 - Performs BOTH tasks correctly -2. Best Gaze 0 - Normal -3. Visual 0 - No visual loss -4. Facial Palsy 1 - Minor paralysis ( flattened nasolabial fold , asymmetry on smiling) -5a. Left Arm 0 - No drift; arm holds 90 ( or 45) degrees for full 10 seconds -5b. Right Arm 0 - No drift; arm holds 90 ( or 45) degrees for full 10 seconds -6a. Left Leg 0 - No drift; leg holds 30- degree position for full 5 seconds -6b. Right Leg 0 - No drift; leg holds 30- degree position for full 5 seconds -7. Limb Ataxia 0 - Absent -8. Sensory 0 - Normal; no sensory loss -9. Best Language 0 - No aphasia; normal -10. Dysarthria 0 - Normal -11. Extinction and Inattention 0 - No abnormality -Total 1 Query Text:A score of 0 is "normal" or asymptomatic. Total possible score is 42 . ED: Notify Physician for NIHSS increase by > / = 3 points. Inpatient: RN or Physician to activate a stroke alert for NIHSS increase of > / = 3 points. Coma Scale [Assess] -Eye Opening Spontaneous -Motor Obeys Commands -Verbal Oriented [Total] -Coma Scale Total 15 NIHSS: Ischemic Stroke/TIA Start: 01/08/25 05:04 Text: For PCU Patients: NIH and Neuro Check every 4 Status: Complete hours, PRN and with change in RN caregiver. Freq: [id number] Protocol: Activity Type Activity Date Activity User E-sign Co-sign Detail Recorded Client Recorded Date Recorded By Document 01/08/25 12:00 [id number] 01/08/25 12:10 01/08/25 12:00 NIH Stroke Scale [NIHSS] A score of 0 is "normal" or asymptomatic . Total possible score is 42. Inpatient: RN or Physician to activate a stroke alert for onset of new stroke symptoms or with NIHSS increase >/= 3 points. Following change in neurological status, NIHSS will be performed per physician order or more frequently PRN. -1a. Level of Consciousness 0 - Alert; keenly responsive -1b. LOC Questions 0 - Answers BOTH questions correctly -1c. LOC Commands 0 - Performs BOTH tasks correctly -2. Best Gaze 0 - Normal -3. Visual 0 - No visual loss -4. Facial Palsy 1 - Minor paralysis ( flattened nasolabial fold , asymmetry on smiling) -5a. Left Arm 0 - No drift; arm holds 90 ( or 45) degrees for full 10 seconds -5b. Right Arm 0 - No drift; arm holds 90 ( or 45) degrees for full 10 seconds -6a. Left Leg 0 - No drift; leg holds 30- degree position for full 5 seconds -6b. Right Leg 0 - No drift; leg holds 30- degree position for full 5 seconds -7. Limb Ataxia 0 - Absent -8. Sensory 0 - Normal; no sensory loss -9. Best Language 0 - No aphasia; normal -10. Dysarthria 0 - Normal -11. Extinction and Inattention 0 - No abnormality -Total 1 Query Text:A score of 0 is "normal" or asymptomatic. Total possible score is 42 . ED: Notify Physician for NIHSS increase by > / = 3 points. Inpatient: RN or Physician to activate a stroke alert for NIHSS increase of > / = 3 points. Coma Scale [Assess] -Eye Opening Spontaneous -Motor Obeys Commands -Verbal Oriented [Total] -Coma Scale Total 15 01/09/25 1437 Cosigner Signature (if applicable): CC: ~ Signed [facility]07-08-2025 Progress note Author Jeremy Mcgarry [facility] Note Date/Time January 09, 2025 12:22 pm [facility] Medical Records Department [address] [place] [address] Progress Note 01/09/25 1221 MR#: [id number] Acct: [id number] Name: BERTA SANCHES Rep #:[id number] : 1945 79 From: Jeremy ferris MD PCP: JARROD Cantu Status:ADM I N Location: [place] [address] Progress Note patient was in bathroom today could not examine labs reviewed cr stable plan continue lasix drip till closer to dry weight at dc add bumex 2 mg BID/lasix 80 mg BID continue aldactone metolazone 5 mg as needed KCL 20 meq daily will arrange follow up after dc 01/09/25 1222 <Electronically signed by Jeremy Mcgarry MD> Jeremy Mcgarry MD Cosigner Signature (if applicable): CC: ~ Signed [facility] Work Phone: 1(896) 150-871607-08-2025 Progress note [facility] Medical Records Department [address] [place] [address] Progress Note 01/09/25 1221 MR#: [id number] Acct: [id number] Name: BERTA SANCHES Rep #:[id number] : 1945 79 From: Jeremy ferris MD PCP: JARROD Cantu Status:ADM I N Location: [place] [address] Progress Note patient was in bathroom today could not examine labs reviewed cr stable plan continue lasix drip till closer to dry weight at dc add bumex 2 mg BID/lasix 80 mg BID continue aldactone metolazone 5 mg as needed KCL 20 meq daily will arrange follow up after dc 01/09/25 1222 Jeremy Mcgarry MD Cosigner Signature (if applicable): CC: ~ Signed [facility]07-08-2025 Discharge summary Author Dianne Stovall [facility] Note Date/Time January 09, 2025 9:02a m [facility] Medical Records Department [address] [place] [address] Instructions for Home/Discharge Instructions 01/08/25 1536 MR#: [id number] Acct: [id number] Name: BERTA SANCHES Rep #:[id number] : 1945 79 From: Dianne Stovall DO PCP: Deysi Collazo NP-C Status:ADM I N Discharge Instructions Diet Discharge Diet: 1800 Calorie Control Diet DC O2, CPAP, BIPAP needs Home O2 Discharge instructions: No Dressing / Incision Discharge Activity: Return to Normal Activity Weight Bearing Status: Full weight bearing Follow Up Care Test Results: Test results from this visit will be discussed in further detail at your follow- up appointment, if applicable. Discharge Plan Admission Admit Date/Time: 01/07/25 16:29 Primary Reason for Your Visit: chf Attending Provider: Dianne Stovall Primary Care Provider: Deysi Collazo NP Consulting Providers: Teo Blue; Lindsey Francisco; Yamileth Hassan; Josefina Arrieta; Charley Berger; Tacos Edouard; Sydney Jarvis; Marty Hopkins; Tai Chavez; Jose John; Karyna Gates; Panda Hein; Chelsi Pulido; Lili Newman; Tulio Pittman; Jonathan Funez; Red Lucia; Gurpreet Geronimo; Noris Brock; Jessa Lee;Radha Heller; Jeremy Mcgarry Discharge Orders/Prescriptions Prescriptions: New potassium chloride 10 mEq Tablet,Er Particles/Crystals 20 meq PO DAILYCM Qty: 60 0RF bumetanide 2 mg tablet 2 mg PO BID Qty: 60 0RF metolazone 5 mg tablet 5 mg PO DAILY Qty: 30 0RF Continued metoprolol succinate 25 mg tablet extended release 24 hr 50 mg PO BID Patient Comments: TAKE 1 TABLET BY MOUTH EVERY DAY aspirin 81 mg capsule 81 mg PO DAILY clopidogrel 75 mg tablet 75 mg PO DAILY ferrous sulfate [Feosol] 325 mg (65 mg iron) tablet 325 mg PO DAILY atorvastatin 40 mg tablet 40 mg PO DAILY pantoprazole 40 mg tablet,delayed release (DR/EC) 40 mg PO BID psyllium 3.4 gram/5.8 gram powder 3.4 g PO BID spironolactone 25 mg tablet 12.5 mg PO BID Discontinued furosemide 20 MG tablet 40 mg PO BID metolazone 2.5 mg tablet 2.5 mg PO DAILY PRN (Reason: edema) potassium chloride 10 mEq tablet extended release 10 meq PO DAILY Referrals / Follow Up: Juan Diego Huynh MD [Med Staff - Active Staff] - See Referral Note (February 05, 2025 at 9 AM, please arrive 15 minutes early to fill out paperwork) Mars Hernandez MD [Non-Staff] - Deysi Collazo NP, [employer] T[employer]ER CYLINDER-C [Primary Care Provider] - Disposition Disposition (needs filled in before D/C Order can be placed): Home, Self Care 01/09/25 09<Electronically signed by Dianne Stovall DO>Dianne Stovall DO CC: Josefina Arrieta; Chelsi Pulido; TALI-C Deysi Collazo; Jonathan Funez; Charley Berger MD; Yamileth Hassan MD; Teo Blue MD; Dr. Lindsey Francisco MD; Dr. Tacos Edouard MD; Dr. Sydney Jarvis MD; Dr. Tai Chavez MD; Dr. Marty Hopkins MD;Dr. Jeremy Mcgarry MD; Dr. Jose John MD; Dr. Panda Hein DO; Dr. Tulio Pittman MD; Dr. Lili Newman MD; Dr. Radha Heller MD; Dr. Red Lucia MD; Dr. Gurpreet Geronimo MD; Dr. Noris Brock MD; Karyna Gates DO; Jessa Lee MD ~ Signed [facility] Work Phone: 1(638) 373-579107-08-2025 Discharge summary [facility] Medical Records Department [address] [place] [address] Instructions for Home/Discharge Instructions 01/08/25 1536 MR#: [id number] Acct: [id number] Name: BERTA SANCHES SCOTTIE Rep #:[id number] : 1945 79 From: Dianne Stovall DO PCP: Deysi Collazo NP-C Status:ADM I N Discharge Instructions Diet Discharge Diet: 1800 Calorie Control Diet DC O2, CPAP, BIPAP needs Home O2 Discharge instructions: No Dressing / Incision Discharge Activity: Return to Normal Activity Weight Bearing Status: Full weight bearing Follow Up Care Test Results: Test results from this visit will be discussed in further detail at your follow- up appointment, if applicable. Discharge Plan Admission Admit Date/Time: 01/07/25 16:29 Primary Reason for Your Visit: chf Attending Provider: Dianne Stovall Primary Care Provider: Deysi Collazo NP Consulting Providers: Teo Blue; Lindsey Francisco; Yamileth Hassan; Josefina Arrieta; Charley Berger; Tacos Edouard; Sydney Jarvis; Marty Hopkins; Tai Chavez; Jose John; Karyna Gates; Panda Hein; Chelsi Pulido; Lili Newman; Tulio Pittman; Jonathan Funez; Red Lucia; Gurpreet Geronimo; Noris Brock; Jessa Lee;Radha Heller; Jeremy Mcgarry Discharge Orders/Prescriptions Prescriptions: New potassium chloride 10 mEq Tablet,Er Particles/Crystals 20 meq PO DAILYCM Qty: 60 0RF bumetanide 2 mg tablet 2 mg PO BID Qty: 60 0RF metolazone 5 mg tablet 5 mg PO DAILY Qty: 30 0RF Continued metoprolol succinate 25 mg tablet extended release 24 hr 50 mg PO BID Patient Comments: TAKE 1 TABLET BY MOUTH EVERY DAY aspirin 81 mg capsule 81 mg PO DAILY clopidogrel 75 mg tablet 75 mg PO DAILY ferrous sulfate [Feosol] 325 mg (65 mg iron) tablet 325 mg PO DAILY atorvastatin 40 mg tablet 40 mg PO DAILY pantoprazole 40 mg tablet,delayed release (DR/EC) 40 mg PO BID psyllium 3.4 gram/5.8 gram powder 3.4 g PO BID spironolactone 25 mg tablet 12.5 mg PO BID Discontinued furosemide 20 MG tablet 40 mg PO BID metolazone 2.5 mg tablet 2.5 mg PO DAILY PRN (Reason: edema) potassium chloride 10 mEq tablet extended release 10 meq PO DAILY Referrals / Follow Up: Juan Diego Huynh MD [Med Staff - Active Staff] - See Referral Note (February 05, 2025 at 9 AM, please arrive 15 minutes early to fill out paperwork) Mars Hernandez MD [Non-Staff] - Deysi Collazo NP, [employer] CYLINDER-C [Primary Care Provider] - Disposition Disposition (needs filled in before D/C Order can be placed): Home, Self Care 01/09/25 0902Dianne Stovall DO CC: Josefina Arrieta; Chelsi Pulido; BACK TENDER CYLINDER-C Deysi Collazo; Jonathan Funez; Charley Berger MD; Yamileth Hassan MD; Teo Blue MD; Dr. Lindsey Francisco MD; Dr. Tacos Edouard MD; Dr. Sydney Jarvis MD; Dr. Tai Chavez MD; Dr. Marty Hopkins MD;Dr. Jeremy Mcgarry MD; Dr. Jose John MD; Dr. Panda Hein DO; Dr. Tulio Pittman MD; Dr. Lili Newman MD; Dr. Radha Heller MD; Dr. Red Lucia MD; Dr. Gurpreet Geronimo MD; Dr. Noris Brock MD; Karyna Gates DO; Jessa Lee MD ~ Signed [facility]07-07-2025 Consult note Author Jeremy Mcgarry [facility] Note Date/Time January 08, 2025 5:03p [facility] Medical Records Department [address] [place] [address] Consultation - Nephrology 01/08/25 1655 MR#: [id number] Acct: [id number] Name: BERTA SANCHES Rep #:[id number] : 1945 79 From: Jeremy ferris MD PCP: JARROD Cantu Status:ADM I N Location: [place] [address] Assessment & Plan Assessment/Plan (1) Chronic kidney disease, stage 3b: PLAN: Reviewed records from [facility] where her primary care physician is, from care everywhere from [facility] During her hospitalization in October,[facility] where she was admitted in December. She has had unfortunately 3 hospitalizations within the last 3 months. says that she is having mental stress from all these hospitalizations. Events include #1. Heart failure. Looks like diastolic. EF is okay. BNP has been consistently in the thousands. Reviewed medication list, she was supposed to beon Lasix 80 mg / 40 mg but looks like she may be taking 40 mg twice a day. Spironolactone 25 mg once a day. Metolazone 2.5 mg as needed is on the medication list but both patient and have confirmed that she is not taking that. Farxiga is on the medication list but she thinks that she could not take it because it was very expensive. Baseline weight is around 139 pounds. As high as 154 pounds. Discussed with hospitalist. To be started on Lasix drip today. Eventually plan is to send her home with either Lasix 80 mg twice a day or Bumex 2 mg twice a day. Metolazone for any weight more than 144 pounds. Spironolactone as before. I have asked them to call their insurance company about the alternatives for Farxiga including Jardiance/Steglatro. If any of them is reasonably priced it probably works well for her to take. 2. Renal failure. Baseline creatinine appears to be around 1.3-1.4. She had acute renal failure, required CRRT for about 1 day. Recovered renal function. Most often creatinine in the last 3 months has been between 1.8-2.0. No significant proteinuria. 3. Atherosclerosis. 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 She also has left-sided renal artery stenosis which was confirmed on repeat renal Doppler. She recently saw Dr. Shasta Silva and no intervention was planned since it was unilateral stenosis. Discussed with . We reviewed the medication list, daily weights. Discussed with hospitalist about plan (2) MONIQUE (acute kidney injury): HPI Consult Data Date of Consult: 01/08/25 HPI Narrative Reason for Consultation: monique vs ckd 3b HPI Narrative: BERTA SANCHES, is a 79 F who presents to the hospital with shortness of breath. Nephrology on consultation in view of kidney disease. Somewhat complicated course recently. She is originally from [place], was in [place] for the winter, had a long hospitalization in [facility]. History of congestive heart failure with diastolic dysfunction, BNP has been consistently high. Was seeing cardiology at [facility]. Has been on diuretic, despite that worsening heart failure. Apparently gained more than 10 pounds. Baseline weight is around 140 pounds, went up to 154 pounds. Being started on Lasix drip. [facility] Medical History (Updated 01/08/25 @ 16:[address] Jeremy Mcgarry MD) Skin tear of left forearm without complication [...] (upper respiratory infection) Bronchospasm with bronchitis, acute Home Medications ?Medication ?Instructions ?Recorded ?Last Taken ?Type metoprolol succinate 25 mg 50 mg PO BID heart 02/13/21 Unknown History tablet,extended release 24 hr aspirin 81 mg capsule 81 mg PO DAILY 01/07/25 Unkn own History atorvastatin 40 mg tablet 40 mg PO DAILY daily 5 Unknown History clopidogrel 75 mg tablet 75 mg PO DAILY 01/07/25 Unkn own History ferrous sulfate 325 mg (65 mg 325 mg PO DAILY 01/07/25 Unknown History iron) tablet (Feosol) pantoprazole 40 mg tablet,delayed 40 mg PO BID stomach 01/07/25 Unknown History release psyllium 3.4 gram/5.8 gram oral 3.4 g PO BID daily 12/27 Unknown History powder spironolactone 25 mg tablet 12.5 mg PO BID daily 01/07 Unknown History bumetanide 2 mg tablet 2 mg PO BID #60 tabs 5 Unknown Rx metolazone 5 mg tablet 5 mg PO DAILY #30 tabs 01/08 Unknown Rx potassium chloride 10 mEq 20 meq (2 x 10 mEq) PO DAILY CM #60 01/08/25 Unknown Rx tablet,extended release(part/cryst) tabs Allergy/AdvReac Type Severity Reaction Status Date / Time propofol AdvReac Mild Low blood Verified 01/07/25 12:47 pressure Family History Father Heart disease High cholesterol Mother Heart disease Surgical History history skin cancer surgery history bilateral ear surgeries History of hysterectomy H/O aortic valve replacement Social History Smoking Status: Never smoker alcohol intake: current alcohol intake frequency: a few times a month substance use type: does not use ROS ROS Narrative Negative except above Physical Exam Narrative Alert awake oriented x 3 no obvious distress no pallor no icterus no JVD s1s2 no murmurs lungs clear abdomen soft no organomegaly ++ edema no cyanosis Lab / Micro Data 01/08/25 06:06 01/08/25 06:06 Labs: Laboratory Results - last 24 hr 01/07/25 18:04: POC Glucose 104 01/07/25 22:51: POC Glucose 166 H 01/08/25 06:06: WBC 6.3, RBC 3.18 L, Hgb 9.0 L, Hct 28.4 L, MCV 89.3, MCH 28.3, MCHC 31.7 L, RDW Std Deviation 64.7 H, RDW Coeff of Yonis 19.8 H, Plt Count 155, MPV 9.6, Immature Gran % (Auto) 0.300, Neut % (Auto) 47.3, Lymph % (Auto) 33.8, [place] % (Auto) 15.5 H, Eos % (Auto) 2.1, Baso % (Auto) 1.0, Absolute Neuts (auto)3.0, Absolute Lymphs (auto) 2.11, Nucleated RBC % 0, Differential Comment SCANNED, Platelet Estimate ADEQUATE, RBC Morphology NORM C+C, Sodium 130 L, Potassium 4.1, Chloride 93 L, Carbon Dioxide 25.7, Anion Gap 12, BUN 45 H, Creatinine 1.79 H, Estim Creat Clear Calc 23.72 L, Est GFR (MDRD) Non-Af 28 L, BUN/Creatinine Ratio 24.9 H, Glucose 129 H, Hemoglobin A1c 7.0 H, Calcium 8.8, Magnesium 2.4 H, Triglycerides 69, Cholesterol 68, LDL Cholesterol, Calc 26, VLDLCholesterol 14, HDL Cholesterol 29 L, Cholesterol/HDL Ratio 2.38, TSH 4.850 H 01/08/25 06:54: POC Glucose 124 H 01/08/25 12:14: POC Glucose 136 H Imaging Radiology Impression Echocardiogram 01/07/25 17:42 Interpretation Summary Normal LV size. The left ventricular ejection fraction is 50 %. Stage 3 diastolic dysfunction. Mean transmitral valve gradient 5 mmHg. Moderate mitral stenosis Heart rate at the time of examination was 79 bpm ICD or pacer leads identified within the right ventricle. D shaped septum in diastole. Moderate concentric left ventricular hypertrophy. Bioprosthetic aortic valve. Mean aortic valve gradient 11 mmHg. Ordering Physician: Radha Heller Performed By: Edy Victor RCS Brain CT 01/07/25 22:53 IMPRESSION: No intra-axial or extra-axial hemorrhage. No acute process. Age-related changes of involution and chronic small-vessel ischemic disease Navigator to call report. 11:17 p.m. Reading Location: [facility] Head/Neck CTA 01/07/25 23:08 IMPRESSION: BILATERAL CALCIFIC PLAQUE, PRIMARILY AT THE BIFURCATION BILATERALLY LESS THAN 50% STENOSIS. OCCASIONALLY OTHER PLAQUES ARE SEEN BUT NON FLOW LIMITING. NO LARGE VESSEL OCCLUSION. Requested contact with the referring physician at 11:55 p.m. verbal report to charge nurse Melida at 12:05 a.m. Reading Location: [facility] Carotid Duplex 01/08/25 05:04 Interpretation Summary Mild (<50%) stenosis right extracranial internal carotid. Mild (<50%) stenosis left extracranial internal carotid. Patent and antegrade vertebrals bilaterally. Ordering Physician: Carla Ha Referring Physician: Deysi Collazo Performed By: Sony Perez RVT 01/08/25 1703 <Electronically signed by Jeremy Mcgarry MD> Cosigner Signature (if applicable): CC: JARROD Collazo~ Signed [facility] Work Phone: 1(781) 890-182107-07-2025 Progress note Author Noris Brock [facility] Note Date/Time January 08, 2025 3:23p m [facility] Medical Records Department [address] [place] [address] Progress Note - Neurology 01/08/25 1514 MR#: [id number] Acct: [id number] Name: BERTA SANCHES SCOTTIE Rep #:[id number] : 1945 79 From: Noris Brock MD PCP: JARROD Cantu Status:ADM I N Location: [place] [address] Objective Data Objective Data Vital Signs: Vital Signs Temp Pulse Resp BP Pulse Ox O2 Del Method 97.6 F L 81 17 151/55 H 97 Room Air 01/08/25 12:00 01/08/25 12:00 01/08/25 12:00 01/08/25 12:00 01/08/25 12:00 01/08/25 12:00 Oxygen Delivery Method Room Air Weight: 68.8 kg Body Mass Index (BMI) 26.9 Intake & Output: Intake and Output for Last 24 Hours 01/06/25 01/07/25 01/08/25 23:59 23:59 23:59 Intake Total 120 / 120 Output Total 675 / 675 Balance 120 / 120 -675 / -675 Lab / Micro Data 01/08/25 06:06 01/08/25 06:06 Labs: Laboratory Results - last 24 hr 01/07/25 14:54: Troponin T Hi Sens 2 Hr 68 H* 01/07/25 18:04: POC Glucose 104 01/07/25 22:51: POC Glucose 166 H 01/08/25 06:06: WBC 6.3, RBC 3.18 L, Hgb 9.0 L, Hct 28.4 L, MCV 89.3, MCH 28.3, MCHC 31.7 L, RDW Std Deviation 64.7 H, RDW Coeff of Yonis 19.8 H, Plt Count 155, MPV 9.6, Immature Gran % (Auto) 0.300, Neut % (Auto) 47.3, Lymph % (Auto) 33.8, [place] % (Auto) 15.5 H, Eos % (Auto) 2.1, Baso % (Auto) 1.0, Absolute Neuts (auto)3.0, Absolute Lymphs (auto) 2.11, Nucleated RBC % 0, Differential Comment SCANNED, Platelet Estimate ADEQUATE, RBC Morphology NORM C+C, Sodium 130 L, Potassium 4.1, Chloride 93 L, Carbon Dioxide 25.7, Anion Gap 12, BUN 45 H, Creatinine 1.79 H, Estim Creat Clear Calc 23.72 L, Est GFR (MDRD) Non-Af 28 L, BUN/Creatinine Ratio 24.9 H, Glucose 129 H, Hemoglobin A1c 7.0 H, Calcium 8.8, Magnesium 2.4 H, Triglycerides 69, Cholesterol 68, LDL Cholesterol, Calc 26, VLDLCholesterol 14, HDL Cholesterol 29 L, Cholesterol/HDL Ratio 2.38, TSH 4.850 H 01/08/25 06:54: POC Glucose 124 H 01/08/25 12:14: POC Glucose 136 H Radiography Diagnostic Testing: Radiology Impression Echocardiogram 01/07/25 17:42 Interpretation Summary Normal LV size. The left ventricular ejection fraction is 50 %. Stage 3 diastolic dysfunction. Mean transmitral valve gradient 5 mmHg. Moderate mitral stenosis Heart rate at the time of examination was 79 bpm ICD or pacer leads identified within the right ventricle. D shaped septum in diastole. Moderate concentric left ventricular hypertrophy. Bioprosthetic aortic valve. Mean aortic valve gradient 11 mmHg. Ordering Physician: Radha Heller Performed By: Edy Victor RCS Brain CT 01/07/25 22:53 IMPRESSION: No intra-axial or extra-axial hemorrhage. No acute process. Age-related changes of involution and chronic small-vessel ischemic disease Navigator to call report. 11:17 p.m. Reading Location: [facility] Head/Neck CTA 01/07/25 23:08 IMPRESSION: BILATERAL CALCIFIC PLAQUE, PRIMARILY AT THE BIFURCATION BILATERALLY LESS THAN 50% STENOSIS. OCCASIONALLY OTHER PLAQUES ARE SEEN BUT NON FLOW LIMITING. NO LARGE VESSEL OCCLUSION. Requested contact with the referring physician at 11:55 p.m. verbal report to charge nurse Melida at 12:05 a.m. Reading Location: [facility] Carotid Duplex 01/08/25 05:04 Interpretation Summary Mild (<50%) stenosis right extracranial internal carotid. Mild (<50%) stenosis left extracranial internal carotid. Patent and antegrade vertebrals bilaterally. Ordering Physician: Carla Ha Referring Physician: Deysi Collazo Performed By: Sony Perez RVT Physical Exam Neuro Neuro Narrative: General: The patient appears nutritionally appropriate, well-groomed, and appears comfortable in no acute distress. Mental Status: The patient?s mental status was normal including orientation. Language was intact. Cranial nerves: Visual rosas full, and extra-ocular motion was intact. Mild facial asymmetry noted (nasolabial fold flattening on right noted), but patient and at bedside reports this is her baseline. There was no dysarthria. Motor: Normal strength and tone in all four extremities. No pronator drift. Sensation: Intact light touch bilaterally, no extinction. Coordination: Bilateral finger to nosewas normal. There was no dysmetria. Gait: deferred Subject: Neurology Subjective Patient reports she feels normal this AM. Patient and her both report her facial asymmetry is baseline. Assessment and Plan: Stroke Assessment/Plan BERTA SANCHES is a 79 LH F with a history of HTN, HL, DM, WVR, PPM, Afib s/p watchman, PVD, CHF who was admitted 01/07/25 for CHF. Overnight stroke alert was called for facial droop. CT brain negative for acute changes. CTA head/necknegative. Telestroke showed NIHSS-1. Notes report left facial droop, but on myview right nasolabial fold flatterning is noted. Patient and confirm facial asymmetry is baseline. Patient denies any new complaints and reports she is at baseline. agrees and confirms her facial asymmetry is baseline. Cassi-asked multiple times to ensure the facial asymmetry is not new, and both confirmed that her face has baseline asymmetry. She reports it runs in her family and her mother and sister have the same facial asymmetry. Neurological examination shows facial asymmetry at rest, with mild nasolabial fold flatterning on right face, but symmetric smile, NIHSS-1 (RF-1) ASSESSMENT/PLAN: Facial asymmetry (patient reports baseline and chronic) 1) No further stroke work-up recommended. NIHSS NIHSS Nursing Documentation NIHSS Nursing Documentation: NIHSS: Ischemic Stroke/TIA Start: 01/08/25 00:49 Freq: [id number] Status: Complete Protocol: Activity Type Activity Date Activity User E-sign Co-sign Detail Recorded Client Recorded Date Recorded By Document 01/08/25 03:22 [id number] 01/08/25 03:24 01/08/25 03:22 NIH Stroke Scale [NIHSS] A score of 0 is "normal" or asymptomatic . Total possible score is 42. Inpatient: RN or Physician to activate a stroke alert for onset of new stroke symptoms or with NIHSS increase >/= 3 points. Following change in neurological status, NIHSS will be performed per physician order or more frequently PRN. -1a. Level of Consciousness 0 - Alert; keenly responsive -1b. LOC Questions 0 - Answers BOTH questions correctly -1c. LOC Commands 0 - Performs BOTH tasks correctly -2. Best Gaze 0 - Normal -3. Visual 0 - No visual loss -4. Facial Palsy 1 - Minor paralysis ( flattened nasolabial fold , asymmetry on smiling) -5a. Left Arm 0 - No drift; arm holds 90 ( or 45) degrees for full 10 seconds -5b. Right Arm 0 - No drift; arm holds 90 ( or 45) degrees for full 10 seconds -6a. Left Leg 0 - No drift; leg holds 30- degree position for full 5 seconds -6b. Right Leg 0 - No drift; leg holds 30- degree position for full 5 seconds -7. Limb Ataxia 0 - Absent -8. Sensory 0 - Normal; no sensory loss -9. Best Language 0 - No aphasia; normal -10. Dysarthria 0 - Normal -11. Extinction and Inattention 0 - No abnormality -Total 1 Query Text:A score of 0 is "normal" or asymptomatic. Total possible score is 42 . ED: Notify Physician for NIHSS increase by > / = 3 points. Inpatient: RN or Physician to activate a stroke alert for NIHSS increase of > / = 3 points. Coma Scale [Assess] -Eye Opening Spontaneous -Motor Obeys Commands -Verbal Oriented [Total] -Coma Scale Total 15 NIHSS: Ischemic Stroke/TIA Start: 01/08/25 05:04 Text: For PCU Patients: NIH and Neuro Check every 4 Status: Complete hours, PRN and with change in RN caregiver. Freq: [id number] Protocol: Activity Type Activity Date Activity User E-sign Co-sign Detail Recorded Client Recorded Date Recorded By Document 01/08/25 12:00 [id number] 01/08/25 12:10 01/08/25 12:00 NIH Stroke Scale [NIHSS] A score of 0 is "normal" or asymptomatic . Total possible score is 42. Inpatient: RN or Physician to activate a stroke alert for onset of new stroke symptoms or with NIHSS increase >/= 3 points. Following change in neurological status, NIHSS will be performed per physician order or more frequently PRN. -1a. Level of Consciousness 0 - Alert; keenly responsive -1b. LOC Questions 0 - Answers BOTH questions correctly -1c. LOC Commands 0 - Performs BOTH tasks correctly -2. Best Gaze 0 - Normal -3. Visual 0 - No visual loss -4. Facial Palsy 0 - Normal symmetrical movements -5a. Left Arm 0 - No drift; arm holds 90 ( or 45) degrees for full 10 seconds -5b. Right Arm 0 - No drift; arm holds 90 ( or 45) degrees for full 10 seconds -6a. Left Leg 0 - No drift; leg holds 30- degree position for full 5 seconds -6b. Right Leg 0 - No drift; leg holds 30- degree position for full 5 seconds -7. Limb Ataxia 0 - Absent -8. Sensory 0 - Normal; no sensory loss -9. Best Language 0 - No aphasia; normal -10. Dysarthria 0 - Normal -11. Extinction and Inattention 0 - No abnormality -Total 0 Query Text:A score of 0 is "normal" or asymptomatic. Total possible score is 42 . ED: Notify Physician for NIHSS increase by > / = 3 points. Inpatient: RN or Physician to activate a stroke alert for NIHSS increase of > / = 3 points. Coma Scale [Assess] -Eye Opening Spontaneous -Motor Obeys Commands -Verbal Oriented [Total] -Coma Scale Total 15 NIHSS 1a. Level of Consciousness: 0 - Alert; keenly responsive 1b. LOC Questions: 0 - Answers BOTH questions correctly 1c. LOC Commands: 0 - Performs BOTH tasks correctly 2. Best Gaze: 0 - Normal 3. Visual: 0 - No visual loss 4. Facial Palsy: 1 - Minor paralysis (flattened nasolabial fold, asymmetry on smiling) 5a. Left Arm: 0 - No drift; arm holds 90 (or 45) degrees for full 10 seconds 5b. Right Arm: 0 - No drift; arm holds 90 (or 45) degrees for full 10 seconds 6a. Left Le - No drift; leg holds 30-degree position for full 5 seconds 6b. Right Le - No drift; leg holds 30-degree position for full 5 seconds 7. Limb Ataxia: 0 - Absent 8. Sensory: 0 - Normal; no sensory loss 9. Best Language: 0 - No aphasia; normal 10. Dysarthria: 0 - Normal 11. Extinction and Inattention: 0 - No abnormality Total: 1 01/08/25 1523 <Electronically signed by Noris Brock MD> Cosigner Signature (if applicable): CC: ~ Signed [facility] Work Phone: [phone]) 124-684307-07-2025 Consult note [facility] Medical Records Department [address] [place] [address] Consultation - Nephrology 01/08/25 1655 MR#: [id number] Acct: [id number] Name: BERTA SANCHES Rep #:[id number] : 1945 79 From: Jeremy ferris MD PCP: HOWARD CantuC Status:ADM I N Location: [place] [id number] Assessment & Plan Assessment/Plan (1) Chronic kidney disease, stage 3b: PLAN: Reviewed records from [facility] where her primary care physician is, from care everywhere from [facility] During her hospitalization in October,[facility] where she was admitted [facility]. She has had unfortunately 3 hospitalizations within the last 3 months. says that she is having mental stress from all these hospitalizations. Events include #1. Heart failure. Looks like diastolic. EF is okay. BNP has been consistently in the thousands. Reviewed medication list, she was supposed to beon Lasix 80 mg / 40 mg but looks like she may be taking 40 mg twice a day. Spironolactone 25 mg once a day. Metolazone 2.5 mg as needed is on the medication list but both patient and have confirmed that she is not taking that. Farxiga is on the medication list but she thinks that she could not take it because it was very expensive. Baseline weight is around 139 pounds. As high as 154 pounds. Discussed with hospitalist. To be started on Lasix drip today. Eventually plan is to send her home with either Lasix 80 mg twice a day or Bumex 2 mg twice a day. Metolazone for any weight more than 144 pounds. Spironolactone as before. I have asked them to call their insurance company about the alternatives for Farxiga including Jardiance/Steglatro.If any of them is reasonably priced it probably works well for her to take. 2. Renal failure. Baseline creatinine appears to be around 1.3-1.4. She had acute renal failure, required CRRT for about 1 day. Recovered renal function. Most often creatinine in the last 3 months has been between 1.8-2.0. No significant proteinuria. 3. Atherosclerosis. 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 She also has left-sided renal artery stenosis which was confirmed on repeat renal Doppler. She recently saw Dr. Shasta Silva and no intervention was planned since it was unilateral stenosis. Discussed with . We reviewed the medication list, daily weights. Discussed with hospitalist about plan (2) MONIQUE (acute kidney injury): HPI Consult Data Date of Consult: 01/08/25 HPI Narrative Reason for Consultation: monique vs ckd 3b HPI Narrative: BERTA SANCHES, is a 79 F who presents to the hospital with shortness of breath. Nephrology on consultation in view of kidney disease. Somewhat complicated course recently. She is originally from [place], was in [place] for the winter, had a long hospitalization in [facility]. History of congestive heart failure with diastolic dysfunction, BNP has been consistently high. Wasseeing cardiology at [facility]. Has been on diuretic, despite that worsening heart failure. Apparently gained more than 10 pounds. Baseline weight is around 140 pounds, went up to 154 pounds. Being started on Lasix drip. [facility] Medical History (Updated 01/08/25 @ 16:[address] Jeremy Mcgarry MD) Skin tear of left forearm without complication [...] (upper respiratory infection) Bronchospasm with bronchitis, acute Home Medications ?Medication ?Instructions ?Recorded ?Last Taken ?Type metoprolol succinate 25 mg 50 mg PO BID heart 02/13/21 Unknown History tablet,extended release 24 hr aspirin 81 mg capsule 81 mg PO DAILY 01/07/25 Unkn own History atorvastatin 40 mg tablet 40 mg PO DAILY daily 5 Unknown History clopidogrel 75 mg tablet 75 mg PO DAILY 01/07/25 Unkn own History ferrous sulfate 325 mg (65 mg 325 mg PO DAILY 01/07/25 Unknown History iron) tablet (Feosol) pantoprazole 40 mg tablet,delayed 40 mg PO BID stomach 01/07/25 Unknown History release psyllium 3.4 gram/5.8 gram oral 3.4 g PO BID daily 12/27 Unknown History powder spironolactone 25 mg tablet 12.5 mg PO BID daily 01/07 Unknown History bumetanide 2 mg tablet 2 mg PO BID #60 tabs 5 Unknown Rx metolazone 5 mg tablet 5 mg PO DAILY #30 tabs 01/08 Unknown Rx potassium chloride 10 mEq 20 meq (2 x 10 mEq) PO DAILY CM #60 01/08/25 Unknown Rx tablet,extended release(part/cryst) tabs Allergy/AdvReac Type Severity Reaction Status Date / Time propofol AdvReac Mild Low blood Verified 01/07/25 12:47 pressure Family History Father Heart disease High cholesterol Mother Heart disease Surgical History history skin cancer surgery history bilateral ear surgeries History of hysterectomy H/O aortic valve replacement Social History Smoking Status: Never smoker alcohol intake: current alcohol intake frequency: a few times a month substance use type: does not use ROS ROS Narrative Negative except above Physical Exam Narrative Alert awake oriented x 3 no obvious distress no pallor no icterus no JVD s1s2 no murmurs lungs clear abdomen soft no organomegaly ++ edema no cyanosis Lab / Micro Data 01/08/25 06:06 01/08/25 06:06 Labs: Laboratory Results - last 24 hr 01/07/25 18:04: POC Glucose 104 01/07/25 22:51: POC Glucose 166 H 01/08/25 06:06: WBC 6.3, RBC 3.18 L, Hgb 9.0 L, Hct 28.4 L, MCV 89.3, MCH 28.3, MCHC 31.7 L, RDW Std Deviation 64.7 H, RDW Coeff of Yonis 19.8 H, Plt Count 155, MPV 9.6, Immature Gran % (Auto) 0.300, Neut % (Auto) 47.3, Lymph % (Auto) 33.8, [place] % (Auto) 15.5 H, Eos % (Auto) 2.1, Baso % (Auto) 1.0, Absolute Neuts (auto)3.0, Absolute Lymphs (auto) 2.11, Nucleated RBC % 0, Differential Comment SCANNED, Platelet Estimate ADEQUATE, RBC Morphology NORM C+C, Sodium 130 L, Potassium 4.1, Chloride 93 L, Carbon Dioxide 25.7, Anion Gap 12, BUN 45 H, Creatinine 1.79 H, Estim Creat Clear Calc 23.72 L, Est GFR (MDRD) Non-Af 28 L, BUN/Creatinine Ratio 24.9 H, Glucose 129 H, Hemoglobin A1c 7.0 H, Calcium 8.8, Magnesium 2.4 H, Triglycerides 69, Cholesterol 68, LDL Cholesterol, Calc 26, VLDLCholesterol 14, HDL Cholesterol 29 L, Cholesterol/HDL Ratio 2.38, TSH 4.850 H 01/08/25 06:54: POC Glucose 124 H 01/08/25 12:14: POC Glucose 136 H Imaging Radiology Impression Echocardiogram 01/07/25 17:42 Interpretation Summary Normal LV size. The left ventricular ejection fraction is 50 %. Stage 3 diastolic dysfunction. Mean transmitral valve gradient 5 mmHg. Moderate mitral stenosis Heart rate at the time of examination was 79 bpm ICD or pacer leads identified within the right ventricle. D shaped septum in diastole. Moderate concentric left ventricular hypertrophy. Bioprosthetic aortic valve. Mean aortic valve gradient 11 mmHg. Ordering Physician: Radha Heller Performed By: Edy Victor RCS Brain CT 01/07/25 22:53 IMPRESSION: No intra-axial or extra-axial hemorrhage. No acute process. Age-related changes of involution and chronic small-vessel ischemic disease Navigator to call report. 11:17 p.m. Reading Location: [facility] Head/Neck CTA 01/07/25 23:08 IMPRESSION: BILATERAL CALCIFIC PLAQUE, PRIMARILY AT THE BIFURCATION BILATERALLY LESS THAN 50% STENOSIS. OCCASIONALLY OTHER PLAQUES ARE SEEN BUT NON FLOW LIMITING. NO LARGE VESSEL OCCLUSION. Requested contact with the referring physician at 11:55 p.m. verbal report to charge nurse Melida at12:05 a.m. Reading Location: [facility] Carotid Duplex 01/08/25 05:04 Interpretation Summary Mild (<50%) stenosis right extracranial internal carotid. Mild (<50%) stenosis left extracranial internal carotid. Patent and antegrade vertebrals bilaterally. Ordering Physician: Carla Ha Referring Physician: Deysi Collazo Performed By: Sony Perez RVT 01/08/25 1703 Cosigner Signature (if applicable): CC: BACK TENDER CYLINDER-C Deysi Collazo~ Signed [facility]07-07-2025 Progress note [facility] Medical Records Department [address] [place] [address] Progress Note - Neurology 01/08/25 1514 MR#: [id number] Acct: [id number] Name: BERTA SANCHES SCOTTIE Rep #:[id number] : 1945 79 From: Noris Brock MD PCP: JARROD Cantu Status:ADM I N Location: [place] [address] Objective Data Objective Data Vital Signs: Vital Signs Temp Pulse Resp BP Pulse Ox O2 Del Method 97.6 F L 81 17 151/55 H 97 Room Air 01/08/25 12:00 01/08/25 12:00 01/08/25 12:00 01/08/25 12:00 01/08/25 12:00 01/08/25 12:00 Oxygen Delivery Method Room Air Weight: 68.8 kg Body Mass Index (BMI) 26.9 Intake & Output: Intake and Output for Last 24 Hours 01/06/25 01/07/25 01/08/25 23:59 23:59 23:59 Intake Total 120 / 120 Output Total 675 / 675 Balance 120 / 120 -675 / -675 Lab / Micro Data 01/08/25 06:06 01/08/25 06:06 Labs: Laboratory Results - last 24 hr 01/07/25 14:54: Troponin T Hi Sens 2 Hr 68 H* 01/07/25 18:04: POC Glucose 104 01/07/25 22:51: POC Glucose 166 H 01/08/25 06:06: WBC 6.3, RBC 3.18 L, Hgb 9.0 L, Hct 28.4 L, MCV 89.3, MCH 28.3, MCHC 31.7 L, RDW Std Deviation 64.7 H, RDW Coeff of Yonsi 19.8 H, Plt Count 155, MPV 9.6, Immature Gran % (Auto) 0.300, Neut % (Auto) 47.3, Lymph % (Auto) 33.8, [place] % (Auto) 15.5 H, Eos % (Auto) 2.1, Baso % (Auto) 1.0, Absolute Neuts (auto)3.0, Absolute Lymphs (auto) 2.11, Nucleated RBC % 0, Differential Comment SCANNED, Platelet Estimate ADEQUATE, RBC Morphology NORM C+C, Sodium 130 L, Potassium 4.1, Chloride 93 L, Carbon Dioxide 25.7, Anion Gap 12, BUN 45 H, Creatinine 1.79 H, Estim Creat Clear Calc 23.72 L, Est GFR (MDRD) Non-Af 28 L, BUN/Creatinine Ratio 24.9 H, Glucose 129 H, Hemoglobin A1c 7.0 H, Calcium 8.8, Magnesium 2.4 H, Triglycerides 69, Cholesterol 68, LDL Cholesterol, Calc 26, VLDLCholesterol 14, HDL Cholesterol 29 L, Cholesterol/HDL Ratio 2.38, TSH 4.850 H 01/08/25 06:54: POC Glucose 124 H 01/08/25 12:14: POC Glucose 136 H Radiography Diagnostic Testing: Radiology Impression Echocardiogram 01/07/25 17:42 Interpretation Summary Normal LV size. The left ventricular ejection fraction is 50 %. Stage 3 diastolic dysfunction. Mean transmitral valve gradient 5 mmHg. Moderate mitral stenosis Heart rate at the time of examination was 79 bpm ICD or pacer leads identified within the right ventricle. D shaped septum in diastole. Moderate concentric left ventricular hypertrophy. Bioprosthetic aortic valve. Mean aortic valve gradient 11 mmHg. Ordering Physician: Radha Heller Performed By: Edy Victor RCS Brain CT 01/07/25 22:53 IMPRESSION: No intra-axial or extra-axial hemorrhage. No acute process. Age-related changes of involution and chronic small-vessel ischemic disease Navigator to call report. 11:17 p.m. Reading Location: [facility] Head/Neck CTA 01/07/25 23:08 IMPRESSION: BILATERAL CALCIFIC PLAQUE, PRIMARILY AT THE BIFURCATION BILATERALLY LESS THAN 50% STENOSIS. OCCASIONALLY OTHER PLAQUES ARE SEEN BUT NON FLOW LIMITING. NO LARGE VESSEL OCCLUSION. Requested contact with the referring physician at 11:55 p.m. verbal report to charge nurse Melida at12:05 a.m. Reading Location: [facility] Carotid Duplex 01/08/25 05:04 Interpretation Summary Mild (<50%) stenosis right extracranial internal carotid. Mild (<50%) stenosis left extracranial internal carotid. Patent and antegrade vertebrals bilaterally. Ordering Physician: Carla Ha Referring Physician: Deysi Collazo Performed By: Sony Perez, RVT Physical Exam Neuro Neuro Narrative: General: The patient appears nutritionally appropriate, well-groomed, and appears comfortable in noacute distress. Mental Status: The patient?s mental status was normal including orientation. Language was intact. Cranial nerves: Visual rosas full, and extra-ocular motion was intact. Mild facial asymmetry noted (nasolabial fold flattening on right noted), but patient and at bedside reports this is her baseline. There was no dysarthria. Motor: Normal strength and tone in all four extremities. No pronator drift. Sensation: Intact light touch bilaterally, no extinction. Coordination: Bilateral finger to nosewas normal. There was no dysmetria. Gait: deferred Subject: Neurology Subjective Patient reports she feels normal this AM. Patient and her both report her facial asymmetry is baseline. Assessment and Plan: Stroke Assessment/Plan BERTA SANCHES is a 79 LH F with a history of HTN, HL, DM, WVR, PPM, Afib s/p watchman, PVD, CHF who was admitted 01/07/25 for CHF. Overnight stroke alert was called for facial droop. CT brain negative for acute changes. CTA head/necknegative. Telestroke showed NIHSS-1. Notes report left facial droop, but on myview right nasolabial fold flatterning is noted. Patient and confirm facial asymmetry is baseline. Patient denies any new complaints and reports she is at baseline. agrees and confirms her facial asymmetry is baseline. Cassi-asked multiple times to ensure the facial asymmetry is not new, and both confirmed that her face has baseline asymmetry. She reports it runs in her family and her mother and sister have the same facial asymmetry. Neurological examination shows facial asymmetry at rest, with mild nasolabial fold flatterning on right face, but symmetric smile, NIHSS-1 (RF-1) ASSESSMENT/PLAN: Facial asymmetry (patient reports baseline and chronic) 1) No further stroke work-up recommended. NIHSS NIHSS Nursing Documentation NIHSS Nursing Documentation: NIHSS: Ischemic Stroke/TIA Start: 01/08/25 00:49 Freq: [id number] Status: Complete Protocol: Activity Type Activity Date Activity User E-sign Co-sign Detail Recorded Client Recorded Date Recorded By Document 01/08/25 03:22 [id number] 01/08/25 03:24 RM 01/08/25 03:22 NIH Stroke Scale [NIHSS] A score of 0 is "normal" or asymptomatic . Total possible score is 42. Inpatient: RN or Physician to activate a stroke alert for onset of new stroke symptoms or with NIHSS increase >/= 3 points. Following change in neurological status, NIHSS will be performed per physician order or more frequently PRN. -1a. Level of Consciousness 0 - Alert; keenly responsive -1b. LOC Questions 0 - Answers BOTH questions correctly -1c. LOC Commands 0 - Performs BOTH tasks correctly -2. Best Gaze 0 - Normal -3. Visual 0 - No visual loss -4. Facial Palsy 1 - Minor paralysis ( flattened nasolabial fold , asymmetry on smiling) -5a. Left Arm 0 - No drift; arm holds 90 ( or 45) degrees for full 10 seconds -5b. Right Arm 0 - No drift; arm holds 90 ( or 45) degrees for full 10 seconds -6a. Left Leg 0 - No drift; leg holds 30- degree position for full 5 seconds -6b. Right Leg 0 - No drift; leg holds 30- degree position for full 5 seconds -7. Limb Ataxia 0 - Absent -8. Sensory 0 - Normal; no sensory loss -9. Best Language 0 - No aphasia; normal -10. Dysarthria 0 - Normal -11. Extinction and Inattention 0 - No abnormality -Total 1 Query Text:A score of 0 is "normal" or asymptomatic. Total possible score is 42 . ED: Notify Physician for NIHSS increase by > / = 3 points. Inpatient: RN or Physician to activate a stroke alert for NIHSS increase of > / = 3 points. Coma Scale [Assess] -Eye Opening Spontaneous -Motor Obeys Commands -Verbal Oriented [Total] -Coma Scale Total 15 NIHSS: Ischemic Stroke/TIA Start: 01/08/25 05:04 Text: For PCU Patients: NIH and Neuro Check every 4 Status: Complete hours, PRN and with change in RN caregiver. Freq: [id number] Protocol: Activity Type Activity Date Activity User E-sign Co-sign Detail Recorded Client Recorded Date Recorded By Document 01/08/25 12:00 [id number] 01/08/25 12:10 01/08/25 12:00 NIH Stroke Scale [NIHSS] A score of 0 is "normal" or asymptomatic . Total possible score is 42. Inpatient: RN or Physician to activate a stroke alert for onset of new stroke symptoms or with NIHSS increase >/= 3 points. Following change in neurological status, NIHSS will be performed per physician order or more frequently PRN. -1a. Level of Consciousness 0 - Alert; keenly responsive -1b. LOC Questions 0 - Answers BOTH questions correctly -1c. LOC Commands 0 - Performs BOTH tasks correctly -2. Best Gaze 0 - Normal -3. Visual 0 - No visual loss -4. Facial Palsy 0 - Normal symmetrical movements -5a. Left Arm 0 - No drift; arm holds 90 ( or 45) degrees for full 10 seconds -5b. Right Arm 0 - No drift; arm holds 90 ( or 45) degrees for full 10 seconds -6a. Left Leg 0 - No drift; leg holds 30- degree position for full 5 seconds -6b. Right Leg 0 - No drift; leg holds 30- degree position for full 5 seconds -7. Limb Ataxia 0 - Absent -8. Sensory 0 - Normal; no sensory loss -9. Best Language 0 - No aphasia; normal -10. Dysarthria 0 - Normal -11. Extinction and Inattention 0 - No abnormality -Total 0 Query Text:A score of 0 is "normal" or asymptomatic. Total possible score is 42 . ED: Notify Physician for NIHSS increase by > / = 3 points. Inpatient: RN or Physician to activate a stroke alert for NIHSS increase of > / = 3 points. Coma Scale [Assess] -Eye Opening Spontaneous -Motor Obeys Commands -Verbal Oriented [Total] -Coma Scale Total 15 NIHSS 1a. Level of Consciousness: 0 - Alert; keenly responsive 1b. LOC Questions: 0 - Answers BOTH questions correctly 1c. LOC Commands: 0 - Performs BOTH tasks correctly 2. Best Gaze: 0 - Normal 3. Visual: 0 - No visual loss 4. Facial Palsy: 1 - Minor paralysis (flattened nasolabial fold, asymmetry on smiling) 5a. Left Arm: 0 - No drift; arm holds 90 (or 45) degrees for full 10 seconds 5b. Right Arm: 0 - No drift; arm holds 90 (or 45) degrees for full 10 seconds 6a. Left Le - No drift; leg holds 30-degree position for full 5 seconds 6b. Right Le - No drift; leg holds 30-degree position for full 5 seconds 7. Limb Ataxia: 0 - Absent 8. Sensory: 0 - Normal; no sensory loss 9. Best Language: 0 - No aphasia; normal 10. Dysarthria: 0 - Normal 11. Extinction and Inattention: 0 - No abnormality Total: 1 01/08/25 1523 Cosigner Signature (if applicable): CC: ~ Signed [facility]07-07-2025 Progress note Author Carla Barksdale [facility] Note Date/Time January 08, 2025 1:58a m [facility] Medical Records Department [address] [place] [address] Progress Note - Hospitalist 01/07/25 2335 MR#: [id number] Acct: [id number] Name: BERTA SANCHES Rep #:[id number] : 1945 79 From: Carla Rashid DO PCP: JARROD Cantu Status:ADM I N Location: [place] [address] Hospitalist Note Stroke alert was called overhead at approximately 10:50 PM after patient was noted to have Left facial droop in addition to weakness in her Left lower extremity. She was noted to have a chronic Left facial droop with the previous nurse unavailable to pinpoint prior time of normal neurologic function. Nevertheless, she underwent CT scan of the head without contrast and CTA of the head and neck with IV contrast that were negative for acute pathologic changes. Notably patient is already on aspirin, clopidogrel and atorvastatin which will be continued. She underwent evaluation by the [facility] teleneurology stroke team with no significant suspicion for acute neurologic insult. She has a pacemaker in place and an investigation will be made to see if it is MRI compatible. She will undergo MRI of the brain without contrast in the morning if her pacemaker is compatible. If not she will repeat her head CT in 24 hours as per neurology recommendations. MANAGER LINUX was updated with plan. [facility] Imaging Services [address] [place] [address] STROKE Brain/Head without Cont MR#: [id number] Acct: [id number] Name: VERÓINCA,BERTA JO Rep #: [id number] : 1945 F 79 From: Jonathan Paul DO PCP: JARROD Cantu Status: ADM IN Study: STROKE Brain/Head without Cont Date of Exam: 01/07/25 Exam# [id number] Ordering Dr: Carla Ha DO PROCEDURE: STROKE BRAIN/HEAD WITHOUT CONT 01/07/2025 REASON FOR EXAM: STROKE ALERT TECHNIQUE: STROKE BRAIN/HEAD WITHOUT CONT Coronal and Sagittal reconstruction series were provided. One or more dose reduction techniques were used (e.g., Automated exposure control, adjustment of the mA and/or kV according to patient size, use of iterative reconstruction technique. RADIATION DOSE SUMMARY: CTDlvol: 44.99, 22.92 in 15.89 mGy DLP: 1818.71 mGycm FINDINGS: Brain: No acute intra-axial hemorrhage. No extra-axial hemorrhage. No mass, mass effect or midline shift. Periventricular and deep white matter hypodensities suggest chronic small-vessel ischemic change. And age-related process. CSF Spaces: Mild prominent ventricles and sulci suggest involutional change. Sinuses/Mastoids: Predominantly clear. Bones: No aggressive bony process. CT/STROKE Brain/Head without Cont IMPRESSION: No intra-axial or extra-axial hemorrhage. No acute process. Age-related changes of involution and chronic small-vessel ischemic disease Navigator to call report. 11:17 p.m. Reading Location[facility] CC: JARROD Collazo; Dr. Carla Ha DO ~ Supervisory Forester: Signed ----- [facility] Imaging Services [address] [place] [address] STROKE CTA Head AND Neck W/Con MR#: [id number] Acct: [id number] Name: BERTA SANCHES Rep #: [id number] : 1945 F 79 From: Jonathan Paul DO PCP: JARROD Cantu Status: ADM IN Study: STROKE CTA Head AND Neck W/Con Date of Exam: 01/07/25 Exam# [id number] Ordering Dr: Carla Ha DO PROCEDURE: STROKE CTA HEAD AND NECK W/CON 01/07/2025 REASON FOR EXAM: STROKE ALERT, L FACIAL DROOP, L LEG ATAXIA TECHNIQUE: STROKE CTA HEAD AND NECK W/CON Multiplanar Sagittal and Coronal images were obtained. CONTRAST: Isovue 370 VOLUME: 100 mL One or more dose reduction techniques were used (e.g., Automated exposure control, adjustment of the mA and/or kV according to patient size, use of iterative reconstruction technique). RADIATION DOSE SUMMARY: CTDlvol: 44.99 mGy DLP: 880.47 mGycm COMPARISON: No previous CTA FINDINGS: Aortic Arch: Unremarkable Brachiocephalic and Subclavians: Occasional non flow-limiting calcific plaque RIGHT Carotid: Right CCA: Minimal limited volume of bifurcation plaque. No flow limiting stenosis. Right ICA: No flow-limiting stenosis. Maximum stenosis (NASCET): <50% % Right ECA: <70% proximal ECA plaque LEFT Carotid: Left CCA: < 50% stenosis resulting from calcific bulb plaque Left ICA: Patent Maximum stenosis (NASCET): <50% Left ECA: Proximal plaque. No flow-limiting stenosis. Vertebrals: Codominant. RIGHT Vertebral: Patent unremarkable. LEFT Vertebral: Patent. Unremarkable. Anatomy: Standard Aneurysm or avm: No acute aneurysm. Evidence of previous aneurysm clip. Anterior cerebral arteries: Clip location possibly anterior communicating Middle cerebral arteries: Patent Basilar artery: Normal course and caliber. Posterior cerebral arteries: Patent bilaterally. Other major branches of the posterior circulation: Patent Major venous structures: Patent Other findings: Neck: NEGATIVE lungs: Limited images are negative. Bones: Unremarkable. CT/STROKE CTA Head AND Neck W/Con IMPRESSION: BILATERAL CALCIFIC PLAQUE, PRIMARILY AT THE BIFURCATION BILATERALLY LESS THAN 50% STENOSIS. OCCASIONALLY OTHER PLAQUES ARE SEEN BUT NON FLOW LIMITING. NO LARGE VESSEL OCCLUSION. Requested contact with the referring physician at 11:55 p.m. verbal report to charge nurse Melida at 12:05 a.m. Reading Location: [facility] CC: BACK TENDER CYLINDER-C Deysi Collazo; Dr. Carla Ha DO ~ Supervisory Forester: Signed 01/08/25 0158 <Electronically signed by Carla Ha DO> Cosigner Signature (if applicable): CC: ~ Signed [facility] Work Phone: [phone]) 764-750507-07-2025 Progress note [facility] Medical Records Department [address] [place] [address] Progress Note - Hospitalist 01/07/25 2335 MR#: [id number] Acct: [id number] Name: BERTA SANCHES SCOTTIE Rep #:[id number] : 1945 79 From: Carla Rashid DO PCP: JARROD Cantu Status:ADM I N Location: [place] [address] Hospitalist Note Stroke alert was called overhead at approximately 10:50 PM after patient was noted to have Left facial droop in addition to weakness in her Left lower extremity. She was noted to have a chronic Left facial droop with the previous nurse unavailable to pinpoint prior time of normal neurologic function. Nevertheless, she underwent CT scan of the head without contrast and CTA of the head and neck with IV contrast that were negative for acute pathologic changes. Notably patient is already on aspirin, clopidogrel and atorvastatin which will be continued. She underwent evaluation by the [facility] teleneurology stroke team with no significant suspicion for acute neurologic insult. She has a pacemaker in [facility] and an investigation will be made to see if it is MRI compatible. She will undergo MRI of the brain without contrast in the morning if her pacemaker is compatible. If not she will repeat her head CT in 24 hours as per neurology recommendations. MANAGER LINUX was updated with plan. [facility] Imaging Services [address] [place], [place] [id number] STROKE Brain/Head without Cont MR#: [id number] Acct: [id number] Name: BERTA SANCHES Rep #: [id number] : 1945 F 79 From: Jonathan Paul DO PCP: JARROD Cantu Status: ADM IN Study: STROKE Brain/Head without Cont Date of Exam: 01/07/25 Exam# [id number] Ordering Dr: Carla Ha DO PROCEDURE: STROKE BRAIN/HEAD WITHOUT CONT 01/07/2025 REASON FOR EXAM: STROKE ALERT TECHNIQUE: STROKE BRAIN/HEAD WITHOUT CONT Coronal and Sagittal reconstruction series were provided. One or more dose reduction techniques were used (e.g., Automated exposure control, adjustment of the mA and/or kV according to patient size, use of iterative reconstruction technique. RADIATION DOSE SUMMARY: CTDlvol: 44.99, 22.92 in 15.89 mGy DLP: 1818.71 mGycm FINDINGS: Brain: No acute intra-axial hemorrhage. No extra-axial hemorrhage. No mass, mass effect or midline shift. Periventricular and deep white matter hypodensities suggest chronic small-vessel ischemic change. And age-related process. CSF Spaces: Mild prominent ventricles and sulci suggest involutional change. Sinuses/Mastoids: Predominantly clear. Bones: No aggressive bony process. CT/STROKE Brain/Head without Cont IMPRESSION: No intra-axial or extra-axial hemorrhage. No acute process. Age-related changes of involution and chronic small-vessel ischemic disease Navigator to call report. 11:17 p.m. Reading Location: [facility] CC: JARROD Collazo; Dr. Carla Ha DO ~ Supervisory Forester: Signed [facility] Imaging Services [address] [place] [address] STROKE CTA Head AND Neck W/Con MR#: [id number] Acct: [id number] Name: BERTA SANCHES Rep #: [id number] : 1945 F 79 From: Jonathan Paul DO PCP: JARROD Cantu Status: ADM IN Study: STROKE CTA Head AND Neck W/Con Date of Exam: 01/07/25 Exam# [id number] Ordering Dr: Carla Ha DO PROCEDURE: STROKE CTA HEAD AND NECK W/CON 01/07/2025 REASON FOR EXAM: STROKE ALERT, L FACIAL DROOP, L LEG ATAXIA TECHNIQUE: STROKE CTA HEAD AND NECK W/CON Multiplanar Sagittal and Coronal images were obtained. CONTRAST: Isovue 370 VOLUME: 100 mL One or more dose reduction techniques were used (e.g., Automated exposure control, adjustment of the mA and/or kV according to patient size, use of iterative reconstruction technique). RADIATION DOSE SUMMARY: CTDlvol: 44.99 mGy DLP: 880.47 mGycm COMPARISON: No previous CTA FINDINGS: Aortic Arch: Unremarkable Brachiocephalic and Subclavians: Occasional non flow-limiting calcific plaque RIGHT Carotid: Right CCA: Minimal limited volume of bifurcation plaque. No flow limiting stenosis. Right ICA: No flow-limiting stenosis. Maximum stenosis (NASCET): <50% % Right ECA: <70% proximal ECA plaque LEFT Carotid: Left CCA: < 50% stenosis resulting from calcific bulb plaque Left ICA: Patent Maximum stenosis (NASCET): <50% Left ECA: Proximal plaque. No flow-limiting stenosis. Vertebrals: Codominant. RIGHT Vertebral: Patent unremarkable. LEFT Vertebral: Patent. Unremarkable. Anatomy: Standard Aneurysm or avm: No acute aneurysm. Evidence of previous aneurysm clip. Anterior cerebral arteries: Clip location possibly anterior communicating Middle cerebral arteries: Patent Basilar artery: Normal course and caliber. Posterior cerebral arteries: Patent bilaterally. Other major branches of the posterior circulation: Patent Major venous structures: Patent Other findings: Neck: NEGATIVE lungs: Limited images are negative. Bones: Unremarkable. CT/STROKE CTA Head AND Neck W/Con IMPRESSION: BILATERAL CALCIFIC PLAQUE, PRIMARILY AT THE BIFURCATION BILATERALLY LESS THAN 50% STENOSIS. OCCASIONALLY OTHER PLAQUES ARE SEEN BUT NON FLOW LIMITING. NO LARGE VESSEL OCCLUSION. Requested contact with the referring physician at 11:55 p.m. verbal report to charge nurse Melida at12:05 a.m. Reading Location: [facility] CC: HOWARDC Deysi Collazo; Dr. Carla Ha DO ~ Supervisory Forester: Signed 01/08/25 0158 Cosigner Signature (if applicable): CC: ~ Signed [facility]07-07-2025 Radiology Diagnostic study note [facility] Imaging Services [address] [place] [id number] STROKE CTA Head AND Neck W/Con MR#: [id number] Acct: [id number] Name: BERTA SANCHES Rep #: [id number] : 1945 F 79 From: Pet er Humberto CURRY PCP: JARROD Cantu Status: ADM I N Study:STROKE CTA Head AND Neck W/Con Date of Exam: 01/07/25 Exam# [id number] Ordering Dr: Carla Rayo DO PROCEDURE: STROKE CTA HEAD AND NECK W/CON 01/07/2025 REASON FOR EXAM: STROKE ALERT, L FACIAL DROOP, L LEG ATAXIA TECHNIQUE: STROKE CTA HEAD AND NECK W/CON Multiplanar Sagittal and Coronal images were obtained. CONTRAST: Isovue 370 VOLUME: 100 mL One or more dose reduction techniques were used (e.g., Automated exposure control, adjustment of the mA and/or kV according to patient size, use of iterative reconstruction technique). RADIATION DOSE SUMMARY: CTDlvol: 44.99 mGy DLP: 880.47 mGycm COMPARISON: No previous CTA FINDINGS: Aortic Arch: Unremarkable Brachiocephalic and Subclavians: Occasional non flow-limiting calcific plaque RIGHT Carotid: Right CCA: Minimal limited volume of bifurcation plaque. No flow limiting stenosis. Right ICA: No flow-limiting stenosis. Maximum stenosis (NASCET): <50% % Right ECA: <70% proximal ECA plaque LEFT Carotid: Left CCA: < 50% stenosis resulting from calcific bulb plaque Left ICA: Patent Maximum stenosis (NASCET): <50% Left ECA: Proximal plaque. No flow-limiting stenosis. Vertebrals: Codominant. RIGHT Vertebral: Patent unremarkable. LEFT Vertebral: Patent. Unremarkable. Anatomy: Standard Aneurysm or avm: No acute aneurysm. Evidence of previous aneurysm clip. Anterior cerebral arteries: Clip location possibly anterior communicating Middle cerebral arteries: Patent Basilar artery: Normal course and caliber. Posterior cerebral arteries: Patent bilaterally. Other major branches of the posterior circulation: Patent Major venous structures: Patent Other findings: Neck: NEGATIVE lungs: Limited images are negative. Bones: Unremarkable. CT/STROKE CTA Head AND Neck W/Con IMPRESSION: BILATERAL CALCIFIC PLAQUE, PRIMARILY AT THE BIFURCATION BILATERALLY LESS THAN 50% STENOSIS. OCCASIONALLY OTHER PLAQUES ARE SEEN BUT NON FLOW LIMITING. NO LARGE VESSEL OCCLUSION. Requested contact with the referring physician at 11:55 p.m. verbal report to charge nurse Melida at12:05 a.m. Reading Location: [facility] CC: JARROD Collazo; Dr. Carla Ha DO ~ Supervisory Forester: Signed [facility]07-06-2025 Radiology Diagnostic study note [facility] Imaging Services [address] [place], [place] [id number] STROKE Brain/Head without Cont MR#: [id number] Acct: [id number] Name: BERTA SANCHES Rep #: [id number] : 1945 F 79 From: Pet er Humberto CURRY PCP: JARROD Cantu Status: ADM I N Study:STROKE Brain/Head without Cont Date of Exam: 01/07/25 Exam# [id number] Ordering Dr: Carla Rayo DO PROCEDURE: STROKE BRAIN/HEAD WITHOUT CONT 01/07/2025 REASON FOR EXAM: STROKE ALERT TECHNIQUE: STROKE BRAIN/HEAD WITHOUT CONT Coronal and Sagittal reconstruction series were provided. One or more dose reduction techniques were used (e.g., Automated exposure control, adjustment of the mA and/or kV according to patient size, use of iterative reconstruction technique. RADIATION DOSE SUMMARY: CTDlvol: 44.99, 22.92 in 15.89 mGy DLP: 1818.71 mGycm FINDINGS: Brain: No acute intra-axial hemorrhage. No extra-axial hemorrhage. No mass, mass effect or midline shift. Periventricular and deep white matter hypodensities suggest chronic small-vessel ischemic change. And age-related process. CSF Spaces: Mild prominent ventricles and sulci suggest involutional change. Sinuses/Mastoids: Predominantly clear. Bones: No aggressive bony process. CT/STROKE Brain/Head without Cont IMPRESSION: No intra-axial or extra-axial hemorrhage. No acute process. Age-related changes of involution and chronic small-vessel ischemic disease Navigator to call report. 11:17 p.m. Reading Location: [facility] CC: JARROD Collazo; Dr. Carla Ha, DO ~ Supervisory Forester: Signed [facility]07-06-2025 Discharge summary Author Sheree Simmons [facility] Note Date/Time January 07, 2025 5:04p m [facility] Medical Records Department [address] [place] [address] Emergency Department Summary 01/07/25 MR#: [id number] Acct: [id number] Name: BERTA SANCHES SCOTTIE Rep #:[id number] : 1945 79 From: Sheree KING PCP: JARROD Cantu Status:ADM I N Location: [place] [id number] HPI <FERNANDO Uriostegui - Last Filed: 01/07/25 16:48> History of Present Illness Chief Complaint: Shortness of Breath Narrative Narrative: 79-year-old female with PMH of HTN, HLD, DM2, aortic valve replacement, pacemaker, A-fib no longer on blood thinners status post Watchman device, peripheral arterial disease, thoracic aortic aneurysm, congestive heart failure presents with several weeks of persistent shortness of breath and bilateral lower extremity edema. She gives background that in September 2023 she had surgery in [place] for some type of intra-abdominal artery blockage and was started on Plavix in addition to her baseline aspirin 81 mg. She states she was also having issues with her congestive heart failure. She came home at the end of October and has been taking her normal Lasix 40 mg twice daily and spironolactone 12.5 mg twice daily without improvement. She saw her [facility] flosser Dr. Burdikc on January 01. He changed it to Lasix 80 mg in the morning and 40 mg for 5 days which she finished yesterday and went back to 40 mgthis morning but she states she has had no improvement. She is mildly short of breath at rest but especially with walking around. She having difficulty getting from the kitchen to the bathroom. Her legs feel so tight and swollen she is having difficulty bending over to change her close. She has no chest pain. No fever or chills. She has had some phlegm which she thinks is from allergies but no significant cough. [facility] <FERNANDO Uriostegui - Last Filed: 01/07/25 16:48> [facility] Medical History (Updated 01/07/25 @ 17:[address] Luis Armando Harry MD) Skin tear of left forearm without complication [...] (upper respiratory infection) Bronchospasm with bronchitis, acute Home Medications ?Medication ?Instructions ?Recorded ?Last Taken ?Type furosemide 20 mg tablet 40 mg PO DAILY diuretic 11/0203/24/19 History metoprolol succinate 25 mg 50 mg PO DAILY daily Unknown History tablet,extended release 24 hr aspirin 81 mg capsule 81 mg PO DAILY 01/07/25 Unkn own History atorvastatin 40 mg tablet 40 mg PO DAILY daily 5 Unknown History clopidogrel 75 mg tablet 75 mg PO DAILY 01/07/25 Unkn own History ferrous sulfate 325 mg (65 mg 325 mg PO DAILY 01/07/25 Unknown History iron) tablet (Feosol) metolazone 2.5 mg tablet 2.5 mg PO DAILY PRN edema Unknown History pantoprazole 40 mg tablet,delayed 40 mg PO BID daily 0 01/07/25 Unknown History release potassium chloride 10 mEq 10 meq PO DAILY daily Unknown History tablet,extended release psyllium 3.4 gram/5.8 gram oral 3.4 g PO BID daily 12/27 Unknown History powder spironolactone 25 mg tablet 12.5 mg PO BID daily 01/07 Unknown History Allergy/AdvReac Type Severity Reaction Status Date / Time propofol AdvReac Mild Low blood Verified 01/07/25 12:47 pressure Family History Father Heart disease High cholesterol Mother Heart disease Surgical History history skin cancer surgery history bilateral ear surgeries History of hysterectomy H/O aortic valve replacement Social History Smoking Status: Never smoker alcohol intake: current alcohol intake frequency: a few times a month substance use type: does not use ROS <FERNANDO Uriostegui - Last Filed: 01/07/25 16:48> ROS ED ROS Narrative Constitutional: Negative for fever, chills, malaise. CVS: Negative for palpitations, chest pain. Respiratory: Positive for shortness of breath, orthopnea. GI: Negative for abdominal pain, nausea, vomiting. EXAM <FERNANDO Uriostegui - Last Filed: 01/07/25 16:48> Physical Exam Narrative Exam Narrative: CONST: Patient sitting in no acute distress. EYES: Normal inspection. NECK: Normal inspection. RESP: No respiratory distress, very diminished throughout. CVS: Irregularly irregular rhythm, no murmur, no gallop. ABD: Soft and nontender, no guarding or rebound, nondistended. SKIN: Color normal, no rash, warm, dry, intact. EXTREMITIES: Extremities are tight with pitting edema from the proximal thighs down. No erythema or warmth. Brisk cap refill. NEURO: Alert and answering questions appropriately. PSYCH: Normal affect. Const Vital Signs: 01/07/25 12:47 01/07/25 13:28 01/07/25 13:28 Temperature 97.7 F L Temperature Source Oral Pulse Rate 78 Respiratory Rate 16 18 Respiratory Effort Respiratory Depth Respiratory Pattern Blood Pressure 135/57 H Blood Pressure Mean 83 Pulse Ox 100 100 95 Oxygen Delivery Method Room Air Room Air Room Air 01/07/25 13:31 01/07/25 13:47 01/07/25 14:00 Temperature Temperature Source Pulse Rate 81 81 Respiratory Rate 17 16 Respiratory Effort Normal Short of Breath Respiratory Depth Normal Respiratory Pattern Tachypnea Blood Pressure 148/61 H 148/61 H Blood Pressure Mean 90 90 Pulse Ox 100 100 Oxygen Delivery Method Room Air Room Air Room Air 01/07/25 15:23 01/07/25 16:03 01/07/25 16:28 Temperature 97.7 F L Temperature Source Pulse Rate 75 80 75 Respiratory Rate 13 19 H 19 H Respiratory Effort Respiratory Depth Respiratory Pattern Blood Pressure 146/67 H 158/56 H Blood Pressure Mean 93 90 Pulse Ox 100 100 100 Oxygen Delivery Method Room Air Room Air <Dr. Luis Armando Harry MD - Last Filed: 01/07/25 17:04> Physical Exam Const Vital Signs: 01/07/25 12:47 01/07/25 13:28 01/07/25 13:28 Temperature 97.7 F L Temperature Source Oral Pulse Rate 78 Respiratory Rate 16 18 Respiratory Effort Respiratory Depth Respiratory Pattern Blood Pressure 135/57 H Blood Pressure Mean 83 Pulse Ox 100 100 95 Oxygen Delivery Method Room Air Room Air Room Air 01/07/25 13:31 01/07/25 13:47 01/07/25 14:00 Temperature Temperature Source Pulse Rate 81 81 Respiratory Rate 17 16 Respiratory Effort Normal Short of Breath Respiratory Depth Normal Respiratory Pattern Tachypnea Blood Pressure 148/61 H 148/61 H Blood Pressure Mean 90 90 Pulse Ox 100 100 Oxygen Delivery Method Room Air Room Air Room Air 01/07/25 15:23 01/07/25 16:03 01/07/25 16:28 Temperature 97.7 F L Temperature Source Pulse Rate 75 80 75 Respiratory Rate 13 19 H 19 H Respiratory Effort Respiratory Depth Respiratory Pattern Blood Pressure 146/67 H 158/56 H Blood Pressure Mean 93 90 Pulse Ox 100 100 100 Oxygen Delivery Method Room Air Room Air MDM <FERNANDO Uriostegui - Last Filed: 01/07/25 16:48> MDM MDM Narrative Medical decision making narrative: History gathered from: Patient and spouse Differential includes but not limited to CHF, ACS, pneumonia 79-year-old female presents with several weeks of dyspnea and bilateral lower extremity edema. She has had tight swelling from both thighs and down for several weeks. Over the last 5 days she has been taking an increased dose of Lasix as instructed by her flosser without improvement. She is awake alertno distress. Vitals are stable. She is 100% on room air at rest. Lung sounds are very diminished, hard to hear first crackles. Both legs are tight and edematous with pitting edema from both proximal thighs downward. There is no signs of infection. Neurovascularly intact. Labs show normal white count of 6.3 and stable hemoglobin at 9.4. Sodium is 129. Her creatinine of 1.77 is similar to previous. Glucose is 194. proBNP is significantly up at 10,409. Troponin is 71 but EKG is nonischemic and she does not have chest pain and second troponin is stable at 68 so I suspect this is elevated secondary to congestive heart failure. She was given IV Lasix 40 mg. The attending discussed the case with hospitalist for admission. External records reviewed: 11/15/2017 echocardiogram EF 55%. Severe diastolic dysfunction. I have personally performed a face to face assessment of the patient and have reviewed the COLTON Note. I performed a substantive portion of the visit including all aspects of the following. My heck findings include: History is patient presents with orthopnea, dyspnea with minimal activity swelling of her legs that are painful because of how taut they are. She has a history congestive heart failure. 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 She was hospitalized for 23days. She is followed by flosser through the [facility]. She statesshe has difficulty contacting him and seeing him. She was offered option to follow-up with flosser in [place]. Patient denies fever, chills night sweats. Patient denies rhinorrhea, congestion postnasal drainage. Patient does have a slight cough. She denies abdominal pain, nausea, vomit or diarrhea. Denies constipation. She denies dysuria, frequency, urgency or hematuria. She denies decreased or increased urine output. She states when she increases her Lasix she does urinate more. She did double her dose today. She was on a short course where her Lasix was increased. In spite of that she has gained some amount of weight and swelling. Exam is vital signs are marked for slight elevation of blood pressure. She is not hypoxic. HEENT exam is unremarkable. Trachea is midline. There is no lymphadenopathy. Patient does have JVD. Patient does have rales bilaterally. Heart is regular without murmur, gallop or rub. Abdomen is slightly distended and tympanitic. Bowel sounds are diminished. There is no palp pulsatile mass or abdominal bruit. She has no guarding or peritoneal findings. Lower extremity exam reveals marked pitting edema. She also has some pitting edema ofthe sacral area. Medical Decision Making concern patient has exacerbation of congestive heart failure. Will obtain cardiac markers to rule out ischemic cause. She states she is compliant with her medication and diet. She has not had an echo in some time. Her last echo was 2017 and her EF at that time was 55%. Chest x-ray reveals mild cephalization. There is no effusion. Cardiac size is within normal limits. Osseous structures reveal no acute abnormality. EKG doesnot reveal any acute ischemic changes. 1st and 2nd troponin were slightly elevated. Delta is negative. Suspect the elevated troponin is due to the fact that she has heart failure. Her BNP is markedly elevated at greater than 10,000. Other additions or changes: Spoke with Dr. Vera Heller the hospitalist. Full admit PCU History & Record Review Discussion w/independent historian: Patient and Family Additional record(s) reviewed:: Prior outpatient record, Prior ED visit and Prior labs Lab Data Attestation: I reviewed the patient's lab results. Labs: Laboratory Results - last 24 hr 01/07/25 01/07/25 13:00 14:54 WBC 6.3 RBC 3.29 L Hgb 9.4 L Hct 29.6 L MCV 90.0 MCH 28.6 MCHC 31.8 L RDW Std Deviation 65.6 H RDW Coeff of Yonis 19.9 H Plt Count 165 MPV 9.6 Immature Gran % (Auto) 0.300 Neut % (Auto) 59.8 Lymph % (Auto) 24.2 [place] % (Auto) 12.9 H Eos % (Auto) 1.8 Baso % (Auto) 1.0 Absolute Neuts (auto) 3.8 Absolute Lymphs (auto) 1.52 Nucleated RBC % 0 Anisocytosis 1+ Sodium 129 L Potassium 4.2 Chloride 91 L Carbon Dioxide 23.9 Anion Gap 15 BUN 47 H Creatinine 1.77 H Estim Creat Clear Calc 24.26 L Est GFR (MDRD) Non-Af 29 L BUN/Creatinine Ratio 26.4 H Glucose 194 H Calcium 8.8 Troponin T High Sens 71 H* Troponin T Hi Sens 2 Hr 68 H* [place] [address] H Radiography Diagnostic Testing: Clinical Impression(s) from Imaging Studies Chest X-Ray 01/07/25 13:19 IMPRESSION: Findings consistent with mild congestive heart failure. Reading Location: [id number] ED attending interpretation of 2 view chest x-ray shows mild congestive heart failure. EKG Initial EKG: Attestation: I personally reviewed and interpreted this EKG as follows: Interpretation: No Acute Injury Pattern and Atrial Fibrillation Comments: Atrial fibrillation at 77 bpm, occasional ventricular paced complexes Left anterior fascicular block Nonspecific ST changes, no STEMI <Dr. Luis Armando Harry MD - Last Filed: 01/07/25 17:04> MDM MDM Narrative Medical decision making narrative: History gathered from: Patient and spouse 79-year-old female presents with several weeks of dyspnea and bilateral lower extremity edema. She has had tight swelling from both thighs and down for several weeks. Over the last 5 days she has been taking an increased dose of Lasix as instructed by her flosser without improvement. She is awake alertno distress. Vitals are stable. She is 100% on room air at rest. Lung sounds are very diminished, hard to hear first crackles. Both legs are tight and edematous with pitting edema from both proximal thighs downward. There is no signs of infection. Neurovascularly intact. Labs show normal white count of 6.3 and stable hemoglobin at 9.4. Sodium is 129. Her creatinine of 1.77 is similar to previous. Glucose is 194. proBNP is significantly up at 10,409. Troponin is 71 but EKG is nonischemic and she does not have chest pain and second troponin is stable at 68 so I suspect this is elevated secondary to congestive heart failure. External records reviewed: 11/15/2017 echocardiogram EF 55%. Severe diastolic dysfunction. I have personally performed a face to face assessment of the patient and have reviewed the COLTON Note. I performed a substantive portion of the visit including all aspects of the following. My heck findings include: History is patient presents with orthopnea, dyspnea with minimal activity swelling of her legs that are painful because of how taut they are. She has a history congestive heart failure. 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 She was hospitalized for 23days. She is followed by flosser through the [facility]. She statesshe has difficulty contacting him and seeing him. She was offered option to follow-up with flosser in [place]. Patient denies fever, chills night sweats. Patient denies rhinorrhea, congestion postnasal drainage. Patient does have a slight cough. She denies abdominal pain, nausea, vomit or diarrhea. Denies constipation. She denies dysuria, frequency, urgency or hematuria. She denies decreased or increased urine output. She states when she increases her Lasix she does urinate more. She did double her dose today. She was on a short course where her Lasix was increased. In spite of that she has gained some amount of weight and swelling. Exam is vital signs are marked for slight elevation of blood pressure. She is not hypoxic. HEENT exam is unremarkable. Trachea is midline. There is no lymphadenopathy. Patient does have JVD. Patient does have rales bilaterally. Heart is regular without murmur, gallop or rub. Abdomen is slightly distended and tympanitic. Bowel sounds are diminished. There is no palp pulsatile mass or abdominal bruit. She has no guarding or peritoneal findings. Lower extremity exam reveals marked pitting edema. She also has some pitting edema ofthe sacral area. Medical Decision Making concern patient has exacerbation of congestive heart failure. Will obtain cardiac markers to rule out ischemic cause. She states she is compliant with her medication and diet. She has not had an echo in some time. Her last echo was 2017 and her EF at that time was 55%. Chest x-ray reveals mild cephalization. There is no effusion. Cardiac size is within normal limits. Osseous structures reveal no acute abnormality. EKG doesnot reveal any acute ischemic changes. 1st and 2nd troponin were slightly elevated. Delta is negative. Suspect the elevated troponin is due to the fact that she has heart failure. Her BNP is markedly elevated at greater than 10,000. Other additions or changes: Spoke with Dr. Vera Heller the hospitalist. Full admit PCU Lab Data Labs: Laboratory Results - last 24 hr 01/07/25 01/07/25 13:00 14:54 WBC 6.3 RBC 3.29 L Hgb 9.4 L Hct 29.6 L MCV 90.0 MCH 28.6 MCHC 31.8 L RDW Std Deviation 65.6 H RDW Coeff of Yonis 19.9 H Plt Count 165 MPV 9.6 Immature Gran % (Auto) 0.300 Neut % (Auto) 59.8 Lymph % (Auto) 24.2 [place] % (Auto) 12.9 H Eos % (Auto) 1.8 Baso % (Auto) 1.0 Absolute Neuts (auto) 3.8 Absolute Lymphs (auto) 1.52 Nucleated RBC % 0 Anisocytosis 1+ Sodium 129 L Potassium 4.2 Chloride 91 L Carbon Dioxide 23.9 Anion Gap 15 BUN 47 H Creatinine 1.77 H Estim Creat Clear Calc 24.26 L Est GFR (MDRD) Non-Af 29 L BUN/Creatinine Ratio 26.4 H Glucose 194 H Calcium 8.8 Troponin T High Sens 71 H* Troponin T Hi Sens 2 Hr 68 H* [place] [address] H Radiography Diagnostic Testing: Clinical Impression(s) from Imaging Studies Chest X-Ray 01/07/25 13:19 IMPRESSION: Findings consistent with mild congestive heart failure. Reading Location: [facility] Management Discussion w/another healthcare provider: Hospitalist (Documented under the attending note in the MDM narrative portion of the EMR) Discharge Plan Triage Chief Complaint: Shortness of Breath ED Midlevel Provider: Sheree Simmons ED Provider: Luis Armando Harry Dx/Rx/DC Orders Clinical Impression: Acute exacerbation of CHF (congestive heart failure), Anasarca, History of atrial fibrillation, Failure of outpatient treatment, PAD (peripheral artery disease), HLD (hyperlipidemia), Diabetes mellitus type 2 in obese, Elevated blood pressure reading with diagnosis of hypertension Primary Care Provider: Deysi Collazo NP What to do if you have Problems For any increased pain, shortness of breath, bleeding, nausea or vomiting, chestpain, or any unexpected problems, contact your Primary Care Provider. Call [facility] ([phone]) or report to the closest Emergency Room. Call 911 if necessary. 01/07/25 1423 <Electronically signed by Sheree KING> Cosigner Signature (if applicable): 01/07/25 1704 <Electronically signed by Romel UGARTE> CC: JARROD Collazo ~ Signed [facility] Work Phone: [phone]) 822-522107-06-2025 History and physical note Author Radha Heller [facility] Note Date/Time January 07, 2025 4:35p m [facility] Medical Records Department [address] [place] [address] H&P Exam - Hospitalist 01/07/25 1629 MR#: [id number] Acct: [id number] Name: BERTA SANCHES Rep #:[id number] : 1945 79 From: Radha Heller MD PCP: JARROD Cantu Status:REG E R Location: ED HPI - General General Date of Admission: 01/07/25 Date of Service: 01/07/25 Chief Complaint: Increased shortness of breath and swelling HPI Narrative BERTA SANCHES, is a 79-year-old female history of hypertension, diabetes, pacemaker, AV replacement, A-fib status post Watchman device, congestive heart failure presented [facility] ED 01/07/2025 with several weeks of shortness of breath and bilateral lower extremity edema. Reportedly in September 2023 she had surgery in [place] for some kind of intra-abdominal artery blockageand was placed on Plavix and aspirin and was having difficulties with her heart failure at that time. She came home at the end of October and has been taking herLasix 40 twice daily and spironolactone 12.5 mg twice daily without improvement. She recently followed with her [facility] flosser with increase in her Lasix by mouth but has not had improvement. Patient is having somewhat shortness of breath on exertion that she is having difficulty with her ADLs and notes her legs feel so tight and swollen that she has difficulty bending over tochange her close/completing ADLs. In the ED temperature 97.7, heart rate 78 with blood pressure 135/57, respiratory rate 16 and pulse ox 100% on room air. BMP revealed sodium of 129 with last value of 132 in 2020, BUN 47 creatinine of 1.77, last creatinine in our system in 2020 was 1.65. CBC with hemoglobin of 9.4 and pro BNP 10,409. First troponin of 71 with repeat of 68 and chest x-ray with evidence of fluid overload. Hospitalist contacted for admission for heart failure exacerbation. Pt evaluated at bedside. She reports history as above with increasing shortness of breath and lower extremity swelling over the past couple weeks to the point that she is having difficulty with her ADLs now, increased Lasix on an outpatient basis did not improve, has a little bit of a chronic cough from drainage but denies any fevers, no chest pain, no bowel or bladder changes. ROS otherwise negative [facility] Medical History Anxiety Brain aneurysm Bronchospasm with bronchitis, acute Cardiac arrhythmia Chest pain, musculoskeletal CHF exacerbation Diabetes Diabetes mellitus type 2 in obese Family history of brain aneurysm Fever Heart disease History of cancer HLD (hyperlipidemia) HTN (hypertension) Laceration of right middle finger Obesity (BMI 30.0-34.9) PAD (peripheral artery disease) PAF (paroxysmal atrial fibrillation) Skin cancer Skin tear of left forearm without complication URI (upper respiratory infection) Home Medications ?Medication ?Instructions ?Recorded ?Last Taken ?Type rivaroxaban 20 mg tablet 15 mg PO DAILY blood thinner 07/13/15 03/23/19 History simvastatin 40 mg tablet 20 mg PO QHS cholesterol 03/2003/23/19 History furosemide 20 mg tablet 20 mg PO DAILY diuretic 11/0203/24/19 History lisinopril 40 mg tablet 20 mg PO DAILY blood pressur e 12/02/17 03/24/19 History amlodipine 10 mg tablet 5 mg PO BID 03/24/19 9 History coenzyme Q10 100 mg capsule 100 mg PO DAILY 03/24/19 0 03/23/19 History magnesium oxide 200 mg PO DAILY 02/13/21 Unk nown History metoprolol succinate 25 mg 25 mg PO DAILY 02/13/21 Unk nown History tablet,extended release 24 hr cephalexin 500 mg capsule 500 mg PO TID #15 caps 02/27 Unknown Rx aspirin 81 mg capsule 81 mg PO DAILY 01/07/25 Unkn own History clopidogrel 75 mg tablet 75 mg PO DAILY 01/07/25 Unkn own History ferrous sulfate 325 mg (65 mg 325 mg PO DAILY 01/07/25 Unknown History iron) tablet (Feosol) Allergy/AdvReac Type Severity Reaction Status Date / Time propofol AdvReac Mild Low blood Verified 01/07/25 12:47 pressure Family History Father Heart disease High cholesterol Mother Heart disease Surgical History H/O aortic valve replacement history bilateral ear surgeries History of hysterectomy history skin cancer surgery Social History Smoking Status: Never smoker alcohol intake: current alcohol intake frequency: a few times a month substance use type: does not use ROS ROS Narrative General: Denies fever/chills HENT: Denies headache, denies stuffy nose, denies sore throat EYES: Denies changes in vision Resp: Gets a little bit of cough with drainage, increased shortness of breath Cardiac: Denies chest pain GI: Denies abdominal pain, denies changes in bowel, denies nausea/vomiting : Denies changes in urination Extremity: Increased swelling lower extremities up to her hips MSK: Denies weakness Neuro: Denies any numbness/tingling Heme: Denies any bleeding or bruising Skin: Denies rashes Psychiatric: No complaints voiced Vital Signs Vital Signs Vital Signs: 01/07/25 12:47 01/07/25 13:28 01/07/25 13:28 Temperature 97.7 F L Temperature Source Oral Pulse Rate 78 Respiratory Rate 16 18 Respiratory Effort Respiratory Depth Respiratory Pattern Blood Pressure 135/57 H Blood Pressure Mean 83 Pulse Ox 100 100 95 Oxygen Delivery Method Room Air Room Air Room Air 01/07/25 13:31 01/07/25 13:47 01/07/25 14:00 Temperature Temperature Source Pulse Rate 81 81 Respiratory Rate 17 16 Respiratory Effort Normal Short of Breath Respiratory Depth Normal Respiratory Pattern Tachypnea Blood Pressure 148/61 H 148/61 H Blood Pressure Mean 90 90 Pulse Ox 100 100 Oxygen Delivery Method Room Air Room Air Room Air 01/07/25 15:23 01/07/25 16:03 01/07/25 16:28 Temperature 97.7 F L Temperature Source Pulse Rate 75 80 75 Respiratory Rate 13 19 H 19 H Respiratory Effort Respiratory Depth Respiratory Pattern Blood Pressure 146/67 H 158/56 H Blood Pressure Mean 93 90 Pulse Ox 100 100 100 Oxygen Delivery Method Room Air Room Air Weight Weight: 70.488 kg Body Mass Index (BMI) 27.5 Physical Exam Narrative General: Alert, oriented HEENT: Atraumatic, normocephalic Eyes: Anicteric, normal conjunctiva, extraocular movements grossly intact Neck: Supple Respiratory: Crackles at the bases bilaterally, patient just got back from ambulating to bathroom and is tachypneic with increased work of breathing Cardiovascular: Irregularly irregular GI: Soft, nontender, nondistended Extremities: 1+ edema all the way up to hips Musculoskeletal: Moving all extremities Neuro: No overt focal neurological deficits Skin: No rashes appreciated Psych: Cooperative Results Lab / Micro Data 01/07/25 13:00 01/07/25 13:00 Labs: Laboratory Results - last 24 hr 01/07/25 13:00: WBC 6.3, RBC 3.29 L, Hgb 9.4 L, Hct 29.6 L, MCV 90.0, MCH 28.6, MCHC 31.8 L, RDW Std Deviation 65.6 H, RDW Coeff of Yonis 19.9 H, Plt Count 165, MPV 9.6, Immature Gran % (Auto) 0.300, Neut % (Auto) 59.8, Lymph % (Auto) 24.2, [place] % (Auto) 12.9 H, Eos % (Auto) 1.8, Baso % (Auto) 1.0, Absolute Neuts (auto)3.8, Absolute Lymphs (auto) 1.52, Nucleated RBC % 0, Anisocytosis 1+, Sodium 129L, Potassium 4.2, Chloride 91 L, Carbon Dioxide 23.9, Anion Gap 15, BUN 47 H, Creatinine 1.77 H, Estim Creat Clear Calc 24.26 L, Est GFR (MDRD) Non-Af 29 L, BUN/Creatinine Ratio 26.4 H, Glucose 194 H, Calcium 8.8, Troponin T High Sens 71 H*, [place] [address] H 01/07/25 14:54: Troponin T Hi Sens 2 Hr 68 H* Imaging Radiology Impression Chest X-Ray 01/07/25 13:19 IMPRESSION: Findings consistent with mild congestive heart failure. Reading Location: [id number] Assessment & Plan Assessment/Plan (1) CHF exacerbation: QUALIFIERS: Heart failure type: unspecified Qualified Code(s): I50.9 - Heart failure, unspecified PLAN: Plan #Acute exacerbation of chronic heart failure of unclear subtype -Admit to telemetry -proBNP 10,409 -CXR suggestive of fluid overload -Continue IV lasix -Last echo for 5 years ago -Repeat echo ordered -Daily weights, I's and O's -Fluid restriction, heart healthy diet # Hyponatremia -Sodium of 129, last value several years ago was slightly low at 132 -Suspect this may be due to fluid overload -Will be diuresing as above # Elevated troponin -Initial troponin 71 with repeat of 68 -Suspect this is all secondary to patient's fluid overload -Patient to be monitored on telemetry and echo as above # CKD stage III b - No recent labs in our system but creatinine of 1.77 today is similar to several years ago when her creatinine was 1.65 suspect this is chronic -Avoid nephrotoxic agents -Daily BMPs #Type 2 diabetes mellitus -Glucose checks and sliding scale insulin #Hx SMA occlusion - Back in September, hospitalized for 24 days -Noted - Continue antiplatelet agents once med rec updated/home meds confirmed #Hx afib s/p watchman/AV replacement/pace maker - No longer on anticoagulation -Continue beta-yissel #DVT ppx: Heparin subcu Radha Heller MD Charges/Coding Visit Charges Inpatient E&M: 18516 Init Hosp L2 01/07/25 1635 <Electronically signed by Radha Heller MD> Cosigner Signature (if applicable): CC: JARROD Collazo; Dr. Radha Heller MD~ Signed [facility] Work Phone: 1(395) 504-628307-06-2025 Evaluation note* Diagnosis Onset Date Resolution Status Admit Date MONIQUE (acute kidney injury) acute January 07, 2025 4:29pm CHF exacerbation acute January 4:29pm Chronic kidney disease, stage 3b acu te January 07, 2025 4:29pm [facility] Work Phone: 1(730) 832-227607-06-2025 Discharge summary [facility] Medical Records Department [address] [place] [address] Emergency Department Summary 01/07/25 MR#: [id number] Acct: [id number] Name: BERTA SANCHES Rep #:[id number] : 1945 79 From: Sheree KING PCP: HOWARD CantuC Status:ADM I N Location: [place] [address] HPI History of Present Illness Chief Complaint: Shortness of Breath Narrative Narrative: 79-year-old female with PMH of HTN, HLD, DM2, aortic valve replacement, pacemaker, A-fib no longer on blood thinners status post Watchman device, peripheral arterial disease, thoracic aortic aneurysm, congestive heart failure presents with several weeks of persistent shortness of breath and bilateral lower extremity edema. She gives background that in September 2023 she had surgery in [place] for some type of intra-abdominal artery blockage and was started on Plavix in addition to her baseline aspirin 81 mg. She states she was also having issues with her congestive heart failure. She came home atthe end of October and has been taking her normal Lasix 40 mg twice daily and spironolactone 12.5 mg t wice daily without improvement. She saw her [facility] flosser Dr. Burdick on January 01. He changed it to Lasix 80 mg in the morning and 40 mg for 5 days which she finished yesterday and went back to 40 mgthis morning but she states she has had no improvement. She is mildly short of breath at rest but especially with walking around. She having difficulty getting from the kitchen to the bathroom. Her legs feel so tight and swollen she is having difficulty bending over to change her close.She has no chest pain. No fever or chills. She has had some phlegm which she thinks is from allergies but no significant cough. [facility] Medical History (Updated 01/07/25 @ 17:[address] Luis Armando Harry MD) Skin tear of left forearm without complication [...] (upper respiratory infection) Bronchospasm with bronchitis, acute Home Medications ?Medication ?Instructions ?Recorded ?Last Taken ?Type furosemide 20 mg tablet 40 mg PO DAILY diuretic 11/0203/24/19 History metoprolol succinate 25 mg 50 mg PO DAILY daily Unknown History tablet,extended release 24 hr aspirin 81 mg capsule 81 mg PO DAILY 01/07/25 Unkn own History atorvastatin 40 mg tablet 40 mg PO DAILY daily 5 Unknown History clopidogrel 75 mg tablet 75 mg PO DAILY 01/07/25 Unkn own History ferrous sulfate 325 mg (65 mg 325 mg PO DAILY 01/07/25 Unknown History iron) tablet (Feosol) metolazone 2.5 mg tablet 2.5 mg PO DAILY PRN edema Unknown History pantoprazole 40 mg tablet,delayed 40 mg PO BID daily 0 01/07/25 Unknown History release potassium chloride 10 mEq 10 meq PO DAILY daily Unknown History tablet,extended release psyllium 3.4 gram/5.8 gram oral 3.4 g PO BID daily 12/27 Unknown History powder spironolactone 25 mg tablet 12.5 mg PO BID daily 01/07 Unknown History Allergy/AdvReac Type Severity Reaction Status Date / Time propofol AdvReac Mild Low blood Verified 01/07/25 12:47 pressure Family History Father Heart disease High cholesterol Mother Heart disease Surgical History history skin cancer surgery history bilateral ear surgeries History of hysterectomy H/O aortic valve replacement Social History Smoking Status: Never smoker alcohol intake: current alcohol intake frequency: a few times a month substance use type: does not use ROS ROS ED ROS Narrative Constitutional: Negative for fever, chills, malaise. CVS: Negative for palpitations, chest pain. Respiratory: Positive for shortness of breath, orthopnea. GI: Negative for abdominal pain, nausea, vomiting. EXAM Physical Exam Narrative Exam Narrative: CONST: Patient sitting in no acute distress. EYES: Normal inspection. NECK: Normal inspection. RESP: No respiratory distress, very diminished throughout. CVS: Irregularly irregular rhythm, no murmur, no gallop. ABD: Soft and nontender, no guarding or rebound, nondistended. SKIN: Color normal, no rash, warm, dry, intact. EXTREMITIES: Extremities are tight with pitting edema from the proximal thighs down. No erythema orwarmth. Brisk cap refill. NEURO: Alert and answering questions appropriately. PSYCH: Normal affect. Const Vital Signs: 01/07/25 12:47 01/07/25 13:28 01/07/25 13:28 Temperature 97.7 F L Temperature Source Oral Pulse Rate 78 Respiratory Rate 16 18 Respiratory Effort Respiratory Depth Respiratory Pattern Blood Pressure 135/57 H Blood Pressure Mean 83 Pulse Ox 100 100 95 Oxygen Delivery Method Room Air Room Air Room Air 01/07/25 13:31 01/07/25 13:47 01/07/25 14:00 Temperature Temperature Source Pulse Rate 81 81 Respiratory Rate 17 16 Respiratory Effort Normal Short of Breath Respiratory Depth Normal Respiratory Pattern Tachypnea Blood Pressure 148/61 H 148/61 H Blood Pressure Mean 90 90 Pulse Ox 100 100 Oxygen Delivery Method Room Air Room Air Room Air 01/07/25 15:23 01/07/25 16:03 01/07/25 16:28 Temperature 97.7 F L Temperature Source Pulse Rate 75 80 75 Respiratory Rate 13 19 H 19 H Respiratory Effort Respiratory Depth Respiratory Pattern Blood Pressure 146/67 H 158/56 H Blood Pressure Mean 93 90 Pulse Ox 100 100 100 Oxygen Delivery Method Room Air Room Air Physical Exam Const Vital Signs: 01/07/25 12:47 01/07/25 13:28 01/07/25 13:28 Temperature 97.7 F L Temperature Source Oral Pulse Rate 78 Respiratory Rate 16 18 Respiratory Effort Respiratory Depth Respiratory Pattern Blood Pressure 135/57 H Blood Pressure Mean 83 Pulse Ox 100 100 95 Oxygen Delivery Method Room Air Room Air Room Air 01/07/25 13:31 01/07/25 13:47 01/07/25 14:00 Temperature Temperature Source Pulse Rate 81 81 Respiratory Rate 17 16 Respiratory Effort Normal Short of Breath Respiratory Depth Normal Respiratory Pattern Tachypnea Blood Pressure 148/61 H 148/61 H Blood Pressure Mean 90 90 Pulse Ox 100 100 Oxygen Delivery Method Room Air Room Air Room Air 01/07/25 15:23 01/07/25 16:03 01/07/25 16:28 Temperature 97.7 F L Temperature Source Pulse Rate 75 80 75 Respiratory Rate 13 19 H 19 H Respiratory Effort Respiratory Depth Respiratory Pattern Blood Pressure 146/67 H 158/56 H Blood Pressure Mean 93 90 Pulse Ox 100 100 100 Oxygen Delivery Method Room Air Room Air MDM MDM MDM Narrative Medical decision making narrative: History gathered from: Patient and spouse Differential includes but not limited to CHF, ACS, pneumonia 79-year-old female presents with several weeks of dyspnea and bilateral lower extremity edema. She has had tight swelling from both thighs and down for several weeks. Over the last 5 days she has been taking an increased dose of Lasix as instructed by her flosser without improvement. She is awake alertno distress. Vitals are stable. She is 100% on room air at rest. Lung sounds are very diminished, hard to hear first crackles. Both legs are tight and edematous with pitting edema from both proximal thighs downward. There is no signs of infection. Neurovascularly intact. Labs show normal white count of 6.3 and stable hemoglobin at 9.4. Sodium is 129. Her creatinine of 1.77 is similar to previous. Glucose is 194. proBNP is significantly up at 10,409. Troponin is 71 but EKG is nonischemicand she does not have chest pain and second troponin is stable at 68 so I suspect this is elevated secondary to congestive heart failure. She was given IV Lasix 40 mg. The attending discussed the case with hospitalist for admission. External records reviewed: 11/15/2017 echocardiogram EF 55%. Severe diastolic dysfunction. I have personally performed a face to face assessment of the patient and have reviewed the COLTON Note. I performed a substantive portion of the visit including all aspects of the following. My heck findings include: History is patient presents with orthopnea, dyspnea with minimal activity swelling of her legs thatare painful because of how taut they are. She has a history congestive heart failure. 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 She was hospitalized for 23days. She is followed by flosser through the [facility]. She statesshe has difficulty contacting him and seeing him. She was offered option to follow-up with flosser in [place]. Patient denies fever, chills night sweats. Patient denies rhinorrhea, congestion postnasal drainage. Patient does have a slight cough. She denies abdominal pain, nausea, vomit or diarrhea. Denies constipation. She denies dysuria, frequency, urgency or hematuria. She denies decreased or increased urine output. She states when she increases her Lasix she does urinate more. She did double her dose today. She was on a short course where her Lasix was increased. In spite of that she has gained some amount of weight and swelling. Exam is vital signs are marked for slight elevation of blood pressure. She is not hypoxic. HEENT exam is unremarkable. Trachea is midline. There is no lymphadenopathy. Patient does have JVD. Patient does have rales bilaterally. Heart is regular without murmur, gallop or rub. Abdomen is slightly distended and tympanitic. Bowel sounds are diminished. There is no palp pulsatile mass or abdominal bruit. She has no guarding or peritoneal findings. Lower extremity exam reveals marked pitting edema. She also has some pitting edema ofthe sacral area. Medical Decision Making concern patient has exacerbation of congestive heart failure. Will obtain cardiac markers to rule out ischemic cause. She states she is compliant with her medication and diet.She has not had an echo in some time. Her last echo was 2017 and her EF at that time was 55%. Chest x-ray reveals mild cephalization. There is no effusion. Cardiac size is within normal limits.Osseous structures reveal no acute abnormality. EKG doesnot reveal any acute ischemic changes. 1st and 2nd troponin were slightly elevated. Delta is negative. Suspect the elevated troponin is due to the fact that she has heart failure. Her BNP is markedly elevated at greater than 10,000. Other additions or changes: Spoke with Dr. Vera Heller the hospitalist. Full admit PCU History & Record Review Discussion w/independent historian: Patient and Family Additional record(s) reviewed:: Prior outpatient record, Prior ED visit and Prior labs Lab Data Attestation: I reviewed the patient's lab results. Labs: Laboratory Results - last 24 hr 01/07/25 01/07/25 13:00 14:54 WBC 6.3 RBC 3.29 L Hgb 9.4 L Hct 29.6 L MCV 90.0 MCH 28.6 MCHC 31.8 L RDW Std Deviation 65.6 H RDW Coeff of Yonis 19.9 H Plt Count 165 MPV 9.6 Immature Gran % (Auto) 0.300 Neut % (Auto) 59.8 Lymph % (Auto) 24.2 [place] % (Auto) 12.9 H Eos % (Auto) 1.8 Baso % (Auto) 1.0 Absolute Neuts (auto) 3.8 Absolute Lymphs (auto) 1.52 Nucleated RBC % 0 Anisocytosis 1+ Sodium 129 L Potassium 4.2 Chloride 91 L Carbon Dioxide 23.9 Anion Gap 15 BUN 47 H Creatinine 1.77 H Estim Creat Clear Calc 24.26 L Est GFR (MDRD) Non-Af 29 L BUN/Creatinine Ratio 26.4 H Glucose 194 H Calcium 8.8 Troponin T High Sens 71 H* Troponin T Hi Sens 2 Hr 68 H* [place] [address] H Radiography Diagnostic Testing: Clinical Impression(s) from Imaging Studies Chest X-Ray 01/07/25 13:19 IMPRESSION: Findings consistent with mild congestive heart failure. Reading Location: [id number] ED attending interpretation of 2 view chest x-ray shows mild congestive heart failure. EKG Initial EKG: Attestation: I personally reviewed and interpreted this EKG as follows: Interpretation: No Acute Injury Pattern and Atrial Fibrillation Comments: Atrial fibrillation at 77 bpm, occasional ventricular paced complexes Left anterior fascicular block Nonspecific ST changes, no STEMI MDM MDM Narrative Medical decision making narrative: History gathered from: Patient and spouse 79-year-old female presents with several weeks of dyspnea and bilateral lower extremity edema. She has had tight swelling from both thighs and down for several weeks. Over the last 5 days she has been taking an increased dose of Lasix as instructed by her flosser without improvement. She is awake alertno distress. Vitals are stable. She is 100% on room air at rest. Lung sounds are very diminished, hard to hear first crackles. Both legs are tight and edematous with pitting edema from both proximal thighs downward. There is no signs of infection. Neurovascularly intact. Labs show normal white count of 6.3 and stable hemoglobin at 9.4. Sodium is 129. Her creatinine of 1.77 is similar to previous. Glucose is 194. proBNP is significantly up at 10,409. Troponin is 71 but EKG is nonischemicand she does not have chest pain and second troponin is stable at 68 so I suspect this is elevated secondary to congestive heart failure. External records reviewed: 11/15/2017 echocardiogram EF 55%. Severe diastolic dysfunction. I have personally performed a face to face assessment of the patient and have reviewed the COLTON Note. I performed a substantive portion of the visit including all aspects of the following. My heck findings include: History is patient presents with orthopnea, dyspnea with minimal activity swelling of her legs thatare painful because of how taut they are. She has a history congestive heart failure. 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 She was hospitalized for 23days. She is followed by flosser through the [facility]. She statesshe has difficulty contacting him and seeing him. She was offered option to follow-up with flosser in [place]. Patient denies fever, chills night sweats. Patient denies rhinorrhea, congestion postnasal drainage. Patient does have a slight cough. She denies abdominal pain, nausea, vomit or diarrhea. Denies constipation. She denies dysuria, frequency, urgency or hematuria. She denies decreased or increased urine output. She states when she increases her Lasix she does urinate more. She did double her dose today. She was on a short course where her Lasix was increased. In spite of that she has gained some amount of weight and swelling. Exam is vital signs are marked for slight elevation of blood pressure. She is not hypoxic. HEENT exam is unremarkable. Trachea is midline. There is no lymphadenopathy. Patient does have JVD. Patient does have rales bilaterally. Heart is regular without murmur, gallop or rub. Abdomen is slightly distended and tympanitic. Bowel sounds are diminished. There is no palp pulsatile mass or abdominal bruit. She has no guarding or peritoneal findings. Lower extremity exam reveals marked pitting edema. She also has some pitting edema ofthe sacral area. Medical Decision Making concern patient has exacerbation of congestive heart failure. Will obtain cardiac markers to rule out ischemic cause. She states she is compliant with her medication and diet.She has not had an echo in some time. Her last echo was 2017 and her EF at that time was 55%. Chest x-ray reveals mild cephalization. There is no effusion. Cardiac size is within normal limits.Osseous structures reveal no acute abnormality. EKG doesnot reveal any acute ischemic changes. 1st and 2nd troponin were slightly elevated. Delta is negative. Suspect the elevated troponin is due to the fact that she has heart failure. Her BNP is markedly elevated at greater than 10,000. Other additions or changes: Spoke with Dr. Vera Heller the hospitalist. Full admit PCU Lab Data Labs: Laboratory Results - last 24 hr 01/07/25 01/07/25 13:00 14:54 WBC 6.3 RBC 3.29 L Hgb 9.4 L Hct 29.6 L MCV 90.0 MCH 28.6 MCHC 31.8 L RDW Std Deviation 65.6 H RDW Coeff of Yonis 19.9 H Plt Count 165 MPV 9.6 Immature Gran % (Auto) 0.300 Neut % (Auto) 59.8 Lymph % (Auto) 24.2 [place] % (Auto) 12.9 H Eos % (Auto) 1.8 Baso % (Auto) 1.0 Absolute Neuts (auto) 3.8 Absolute Lymphs (auto) 1.52 Nucleated RBC % 0 Anisocytosis 1+ Sodium 129 L Potassium 4.2 Chloride 91 L Carbon Dioxide 23.9 Anion Gap 15 BUN 47 H Creatinine 1.77 H Estim Creat Clear Calc 24.26 L Est GFR (MDRD) Non-Af 29 L BUN/Creatinine Ratio 26.4 H Glucose 194 H Calcium 8.8 Troponin T High Sens 71 H* Troponin T Hi Sens 2 Hr 68 H* [place] [address] H Radiography Diagnostic Testing: Clinical Impression(s) from Imaging Studies Chest X-Ray 01/07/25 13:19 IMPRESSION: Findings consistent with mild congestive heart failure. Reading Location: [facility] Management Discussion w/another healthcare provider: Hospitalist (Documented under the attending note in the MDM narrative portion of the EMR) Discharge Plan Triage Chief Complaint: Shortness of Breath ED Midlevel Provider: Sheree Simmons ED Provider: Luis Armando Harry Dx/Rx/DC Orders Clinical Impression: Acute exacerbation of CHF (congestive heart failure), Anasarca, History of atrial fibrillation, Failure of outpatient treatment, PAD (peripheral artery disease), HLD (hyperlipidemia), Diabetes mellitus type 2 in obese, Elevated blood pressure reading with diagnosis of hypertension Primary Care Provider: Deysi Collazo NP What to do if you have Problems For any increased pain, shortness of breath, bleeding, nausea or vomiting, chestpain, or any unexpected problems, contact your Primary Care Provider. Call [facility] ([phone]) or report tothe closest Emergency Room. Call 911 if necessary. 01/07/25 1640 Cosigner Signature (if applicable): 01/07/25 1704 CC: JARROD Collazo ~ Signed [facility]07-06-2025 History and physical note [facility] Medical Records Department [address] [place] [address] H&P Exam - Hospitalist 01/07/25 1629 MR#: [id number] Acct: [id number] Name: BERTA SANCHES Rep #:[id number] : 1945 79 From: Radha Heller MD PCP: JARROD Cantu Status:REG E R Location: ED HPI - General General Date of Admission: 01/07/25 Date of Service: 01/07/25 Chief Complaint: Increased shortness of breath and swelling HPI Narrative BERTA SANCHES, is a 79-year-old female history of hypertension, diabetes, pacemaker, AV replacement, A-fib status post Watchman device, congestive heart failure [facility] with several weeks of shortness of breath and bilateral lower extremity edema. Reportedly in September 2023 she had surgery in [place] for some kind of intra-abdominal artery blockageand was placed on Plavix and aspirin and was having difficulties with her heart failure at that time. She came home at the end of October and has been taking herLasix 40 twice daily and spironolactone 12.5 mg twice daily without improvement. She recently followed with her [facility] flosser with increase in her Lasix by mouth but has not had improvement. Patient is having somewhat shortness of breath on exertion that she is having difficulty with her ADLs and notes her legs feel so tight and swollen that she has difficulty bending over tochange her close/completing ADLs. In the ED .7, heart rate 78 with blood pressure 135/57, respiratory rate 16 and pulse ox 100% on room air. BMP revealed sodium of 129 with last value of 132 in 2020, BUN 47 creatinine of 1.77, last creatinine in our system in 2020 was 1.65. CBC with hemoglobin of 9.4 and pro BNP 10,409. First troponin of 71 with repeat of 68 and chest x-ray with evidence of fluid overload. Hospitalist contacted for admiss ion for heart failure exacerbation. Pt evaluated at bedside. She reports history as above with increasing shortness of breath and lower extremity swelling over the past couple weeks to the point thatcathi is having difficulty with her ADLs now, increased Lasix on an outpatient basis did not improve,has a little bit of a chronic cough from drainage but denies any fevers, no chest pain, no bowel or bladder changes. ROS otherwise negative [facility] Medical History Anxiety Brain aneurysm Bronchospasm with bronchitis, acute Cardiac arrhythmia Chest pain, musculoskeletal CHF exacerbation Diabetes Diabetes mellitus type 2 in obese Family history of brain aneurysm Fever Heart disease History of cancer HLD (hyperlipidemia) HTN (hypertension) Laceration of right middle finger Obesity (BMI 30.0-34.9) PAD (peripheral artery disease) PAF (paroxysmal atrial fibrillation) Skin cancer Skin tear of left forearm without complication URI (upper respiratory infection) Home Medications ?Medication ?Instructions ?Recorded ?Last Taken ?Type rivaroxaban 20 mg tablet 15 mg PO DAILY blood thinner 07/13/15 03/23/19 History simvastatin 40 mg tablet 20 mg PO QHS cholesterol 03/2003/23/19 History furosemide 20 mg tablet 20 mg PO DAILY diuretic 11/0203/24/19 History lisinopril 40 mg tablet 20 mg PO DAILY blood pressur e 12/02/17 03/24/19 History amlodipine 10 mg tablet 5 mg PO BID 03/24/19 9 History coenzyme Q10 100 mg capsule 100 mg PO DAILY 03/24/19 0 03/23/19 History magnesium oxide 200 mg PO DAILY 02/13/21 Unk nown History metoprolol succinate 25 mg 25 mg PO DAILY 02/13/21 Unk nown History tablet,extended release 24 hr cephalexin 500 mg capsule 500 mg PO TID #15 caps 02/27 Unknown Rx aspirin 81 mg capsule 81 mg PO DAILY 01/07/25 Unkn own History clopidogrel 75 mg tablet 75 mg PO DAILY 01/07/25 Unkn own History ferrous sulfate 325 mg (65 mg 325 mg PO DAILY 01/07/25 Unknown History iron) tablet (Feosol) Allergy/AdvReac Type Severity Reaction Status Date / Time propofol AdvReac Mild Low blood Verified 01/07/25 12:47 pressure Family History Father Heart disease High cholesterol Mother Heart disease Surgical History H/O aortic valve replacement history bilateral ear surgeries History of hysterectomy history skin cancer surgery Social History Smoking Status: Never smoker alcohol intake: current alcohol intake frequency: a few times a month substance use type: does not use ROS ROS Narrative General: Denies fever/chills HENT: Denies headache, denies stuffy nose, denies sore throat EYES: Denies changes in vision Resp: Gets a little bit of cough with drainage, increased shortness of breath Cardiac: Denies chest pain GI: Denies abdominal pain, denies changes in bowel, denies nausea/vomiting : Denies changes in urination Extremity: Increased swelling lower extremities up to her hips MSK: Denies weakness Neuro: Denies any numbness/tingling Heme: Denies any bleeding or bruising Skin: Denies rashes Psychiatric: No complaints voiced Vital Signs Vital Signs Vital Signs: 01/07/25 12:47 01/07/25 13:28 01/07/25 13:28 Temperature 97.7 F L Temperature Source Oral Pulse Rate 78 Respiratory Rate 16 18 Respiratory Effort Respiratory Depth Respiratory Pattern Blood Pressure 135/57 H Blood Pressure Mean 83 Pulse Ox 100 100 95 Oxygen Delivery Method Room Air Room Air Room Air 01/07/25 13:31 01/07/25 13:47 01/07/25 14:00 Temperature Temperature Source Pulse Rate 81 81 Respiratory Rate 17 16 Respiratory Effort Normal Short of Breath Respiratory Depth Normal Respiratory Pattern Tachypnea Blood Pressure 148/61 H 148/61 H Blood Pressure Mean 90 90 Pulse Ox 100 100 Oxygen Delivery Method Room Air Room Air Room Air 01/07/25 15:23 01/07/25 16:03 01/07/25 16:28 Temperature 97.7 F L Temperature Source Pulse Rate 75 80 75 Respiratory Rate 13 19 H 19 H Respiratory Effort Respiratory Depth Respiratory Pattern Blood Pressure 146/67 H 158/56 H Blood Pressure Mean 93 90 Pulse Ox 100 100 100 Oxygen Delivery Method Room Air Room Air Weight Weight: 70.488 kg Body Mass Index (BMI) 27.5 Physical Exam Narrative General: Alert, oriented HEENT: Atraumatic, normocephalic Eyes: Anicteric, normal conjunctiva, extraocular movements grossly intact Neck: Supple Respiratory: Crackles at the bases bilaterally, patient just got back from ambulating to bathroom and is tachypneic with increased work of breathing Cardiovascular: Irregularly irregular GI: Soft, nontender, nondistended Extremities: 1+ edema all the way up to hips Musculoskeletal: Moving all extremities Neuro: No overt focal neurological deficits Skin: No rashes appreciated Psych: Cooperative Results Lab / Micro Data 01/07/25 13:00 01/07/25 13:00 Labs: Laboratory Results - last 24 hr 01/07/25 13:00: WBC 6.3, RBC 3.29 L, Hgb 9.4 L, Hct 29.6 L, MCV 90.0, MCH 28.6, MCHC 31.8 L, RDW Std Deviation 65.6 H, RDW Coeff of Yonis 19.9 H, Plt Count 165, MPV 9.6, Immature Gran % (Auto) 0.300, Neut % (Auto) 59.8, Lymph % (Auto) 24.2, [place] % (Auto) 12.9 H, Eos % (Auto) 1.8, Baso % (Auto) 1.0, Absolute Neuts (auto)3.8, Absolute Lymphs (auto) 1.52, Nucleated RBC % 0, Anisocytosis 1+, Sodium 129L, Potassium 4.2, Chloride 91 L, Carbon Dioxide 23.9, Anion Gap 15, BUN 47 H, Creatinine 1.77 H, Estim Creat Clear Calc 24.26 L, Est GFR (MDRD) Non- Af 29 L, BUN/Creatinine Ratio 26.4 H, Glucose 194 H,Calcium 8.8, Troponin T High Sens 71 H*, [place] [address] H 01/07/25 14:54: Troponin T Hi Sens 2 Hr 68 H* Imaging Radiology Impression Chest X-Ray 01/07/25 13:19 IMPRESSION: Findings consistent with mild congestive heart failure. Reading Location: [id number] Assessment & Plan Assessment/Plan (1) CHF exacerbation: QUALIFIERS: Heart failure type: unspecified Qualified Code(s): I50.9 - Heart failure, unspecified PLAN: Plan #Acute exacerbation of chronic heart failure of unclear subtype -Admit to telemetry -proBNP 10,409 -CXR suggestive of fluid overload -Continue IV lasix -Last echo for 5 years ago -Repeat echo ordered -Daily weights, I's and O's -Fluid restriction, heart healthy diet # Hyponatremia -Sodium of 129, last value several years ago was slightly low at 132 -Suspect this may be due to fluid overload -Will be diuresing as above # Elevated troponin -Initial troponin 71 with repeat of 68 -Suspect this is all secondary to patient's fluid overload -Patient to be monitored on telemetry and echo as above # CKD stage III b - No recent labs in our system but creatinine of 1.77 today is similar to several years ago when her creatinine was 1.65 suspect this is chronic -Avoid nephrotoxic agents -Daily BMPs #Type 2 diabetes mellitus -Glucose checks and sliding scale insulin #Hx SMA occlusion - Back in September, hospitalized for 24 days -Noted - Continue antiplatelet agents once med rec updated/home meds confirmed #Hx afib s/p watchman/AV replacement/pace maker - No longer on anticoagulation -Continue beta-yissel #DVT ppx: Heparin subcu Radha Heller MD Charges/Coding Visit Charges Inpatient E&M: 01214 Init Hosp L2 01/07/25 1635 Cosigner Signature (if applicable): CC: BACK TENDER CYLINDER-C Deysi Collazo; Dr. Radha Heller MD~ Signed [facility]07-06-2025 Radiology Diagnostic study note [facility] Imaging Services [address], [place] [address] Chest PA and Lateral MR#: [id number] Acct: [id number] Name: BERTA SANCHES SCOTTIE Rep #: [id number] : 1945 F 79 From: Nahum Trinidad MD PCP: JARROD Cantu Status: REG E R Study:Chest PA and Lateral Date of Exam: 01/07/25 Exam# [id number] Ordering Dr: Sheree Haynes PROCEDURE: CHEST PA AND LATERAL 01/07/2025 REASON FOR EXAM: DYSPNEA TECHNIQUE: CHEST PA AND LATERAL COMPARISON: Portable chest, 02/13/2021. FINDINGS: There is cardiomegaly, pulmonary venous hypertension and pulmonary interstitial edema consistent with congestive heart failure. There are no pleural effusions. There is calcific vascular disease of the thoracic aorta. There is a dual lead pacemaker. The upper abdominal bowel gas pattern is normal. There are no bony abnormalities ofthe chest. RAD/Chest PA and Lateral IMPRESSION: Findings consistent with mild congestive heart failure. Reading Location: [id number] CC: JARROD Collazo; FERNANDO Uriostegui ~ Supervisory Forester: Signed [facility] Work Phone: [phone]) 648-366707-06-2025 Discharge summary Author Sheree Simmons [facility] Note Date/Time January 07, 2025 5:04p m [facility] Medical Records Department [address] [place] [address] Emergency Department Summary 01/07/25 MR#: [id number] Acct: [id number] Name: BERTA SANCHES Rep #:[id number] : 1945 79 From: Sheree KING PCP: JARROD Cantu Status:ADM I N Location: [place] [id number] HPI <FERNNADO Uriostegui - Last Filed: 01/07/25 16:48> History of Present Illness Chief Complaint: Shortness of Breath Narrative Narrative: 79-year-old female with PMH of HTN, HLD, DM2, aortic valve replacement, pacemaker, A-fib no longer on blood thinners status post Watchman device, peripheral arterial disease, thoracic aortic aneurysm, congestive heart failure presents with several weeks of persistent shortness of breath and bilateral lower extremity edema. She gives background that in September 2023 she had surgery in [place] for some type of intra-abdominal artery blockage and was started on Plavix in addition to her baseline aspirin 81 mg. She states she was also having issues with her congestive heart failure. She came home at the end of October and has been taking her normal Lasix 40 mg twice daily and spironolactone 12.5 mg twice daily without improvement. She saw her [facility] flosser Dr. Burdick on January 01. He changed it to Lasix 80 mg in the morning and 40 mg for 5 days which she finished yesterday and went back to 40 mgthis morning but she states she has had no improvement. She is mildly short of breath at rest but especially with walking around. She having difficulty getting from the kitchen to the bathroom. Her legs feel so tight and swollen she is having difficulty bending over to change her close. She has no chest pain. No fever or chills. She has had some phlegm which she thinks is from allergies but no significant cough. [facility] <FERNANDO Uriostegui - Last Filed: 01/07/25 16:48> [facility] Medical History (Updated 01/07/25 @ 17:[address] Luis Armando Harry MD) Skin tear of left forearm without complication [...] (upper respiratory infection) Bronchospasm with bronchitis, acute Home Medications ?Medication ?Instructions ?Recorded ?Last Taken ?Type furosemide 20 mg tablet 40 mg PO DAILY diuretic 11/0203/24/19 History metoprolol succinate 25 mg 50 mg PO DAILY daily Unknown History tablet,extended release 24 hr aspirin 81 mg capsule 81 mg PO DAILY 01/07/25 Unkn own History atorvastatin 40 mg tablet 40 mg PO DAILY daily 5 Unknown History clopidogrel 75 mg tablet 75 mg PO DAILY 01/07/25 Unkn own History ferrous sulfate 325 mg (65 mg 325 mg PO DAILY 01/07/25 Unknown History iron) tablet (Feosol) metolazone 2.5 mg tablet 2.5 mg PO DAILY PRN edema Unknown History pantoprazole 40 mg tablet,delayed 40 mg PO BID daily 0 01/07/25 Unknown History release potassium chloride 10 mEq 10 meq PO DAILY daily Unknown History tablet,extended release psyllium 3.4 gram/5.8 gram oral 3.4 g PO BID daily 12/27 Unknown History powder spironolactone 25 mg tablet 12.5 mg PO BID daily 01/07 Unknown History Allergy/AdvReac Type Severity Reaction Status Date / Time propofol AdvReac Mild Low blood Verified 01/07/25 12:47 pressure Family History Father Heart disease High cholesterol Mother Heart disease Surgical History history skin cancer surgery history bilateral ear surgeries History of hysterectomy H/O aortic valve replacement Social History Smoking Status: Never smoker alcohol intake: current alcohol intake frequency: a few times a month substance use type: does not use ROS <FERNANDO Uriostegui - Last Filed: 01/07/25 16:48> ROS ED ROS Narrative Constitutional: Negative for fever, chills, malaise. CVS: Negative for palpitations, chest pain. Respiratory: Positive for shortness of breath, orthopnea. GI: Negative for abdominal pain, nausea, vomiting. EXAM <FERNANDO Uriostegui - Last Filed: 01/07/25 16:48> Physical Exam Narrative Exam Narrative: CONST: Patient sitting in no acute distress. EYES: Normal inspection. NECK: Normal inspection. RESP: No respiratory distress, very diminished throughout. CVS: Irregularly irregular rhythm, no murmur, no gallop. ABD: Soft and nontender, no guarding or rebound, nondistended. SKIN: Color normal, no rash, warm, dry, intact. EXTREMITIES: Extremities are tight with pitting edema from the proximal thighs down. No erythema or warmth. Brisk cap refill. NEURO: Alert and answering questions appropriately. PSYCH: Normal affect. Const Vital Signs: 01/07/25 12:47 01/07/25 13:28 01/07/25 13:28 Temperature 97.7 F L Temperature Source Oral Pulse Rate 78 Respiratory Rate 16 18 Respiratory Effort Respiratory Depth Respiratory Pattern Blood Pressure 135/57 H Blood Pressure Mean 83 Pulse Ox 100 100 95 Oxygen Delivery Method Room Air Room Air Room Air 01/07/25 13:31 01/07/25 13:47 01/07/25 14:00 Temperature Temperature Source Pulse Rate 81 81 Respiratory Rate 17 16 Respiratory Effort Normal Short of Breath Respiratory Depth Normal Respiratory Pattern Tachypnea Blood Pressure 148/61 H 148/61 H Blood Pressure Mean 90 90 Pulse Ox 100 100 Oxygen Delivery Method Room Air Room Air Room Air 01/07/25 15:23 01/07/25 16:03 01/07/25 16:28 Temperature 97.7 F L Temperature Source Pulse Rate 75 80 75 Respiratory Rate 13 19 H 19 H Respiratory Effort Respiratory Depth Respiratory Pattern Blood Pressure 146/67 H 158/56 H Blood Pressure Mean 93 90 Pulse Ox 100 100 100 Oxygen Delivery Method Room Air Room Air <Dr. Luis Armando Harry MD - Last Filed: 01/07/25 17:04> Physical Exam Const Vital Signs: 01/07/25 12:47 01/07/25 13:28 01/07/25 13:28 Temperature 97.7 F L Temperature Source Oral Pulse Rate 78 Respiratory Rate 16 18 Respiratory Effort Respiratory Depth Respiratory Pattern Blood Pressure 135/57 H Blood Pressure Mean 83 Pulse Ox 100 100 95 Oxygen Delivery Method Room Air Room Air Room Air 01/07/25 13:31 01/07/25 13:47 01/07/25 14:00 Temperature Temperature Source Pulse Rate 81 81 Respiratory Rate 17 16 Respiratory Effort Normal Short of Breath Respiratory Depth Normal Respiratory Pattern Tachypnea Blood Pressure 148/61 H 148/61 H Blood Pressure Mean 90 90 Pulse Ox 100 100 Oxygen Delivery Method Room Air Room Air Room Air 01/07/25 15:23 01/07/25 16:03 01/07/25 16:28 Temperature 97.7 F L Temperature Source Pulse Rate 75 80 75 Respiratory Rate 13 19 H 19 H Respiratory Effort Respiratory Depth Respiratory Pattern Blood Pressure 146/67 H 158/56 H Blood Pressure Mean 93 90 Pulse Ox 100 100 100 Oxygen Delivery Method Room Air Room Air MDM <FERNANDO Uriostegui - Last Filed: 01/07/25 16:48> [facility] Narrative Medical decision making narrative: History gathered from: Patient and spouse Differential includes but not limited to CHF, ACS, pneumonia 79-year-old female presents with several weeks of dyspnea and bilateral lower extremity edema. She has had tight swelling from both thighs and down for several weeks. Over the last 5 days she has been taking an increased dose of Lasix as instructed by her flosser without improvement. She is awake alertno distress. Vitals are stable. She is 100% on room air at rest. Lung sounds are very diminished, hard to hear first crackles. Both legs are tight and edematous with pitting edema from both proximal thighs downward. There is no signs of infection. Neurovascularly intact. Labs show normal white count of 6.3 and stable hemoglobin at 9.4. Sodium is 129. Her creatinine of 1.77 is similar to previous. Glucose is 194. proBNP is significantly up at 10,409. Troponin is 71 but EKG is nonischemic and she does not have chest pain and second troponin is stable at 68 so I suspect this is elevated secondary to congestive heart failure. She was given IV Lasix 40 mg. The attending discussed the case with hospitalist for admission. External records reviewed: 11/15/2017 echocardiogram EF 55%. Severe diastolic dysfunction. I have personally performed a face to face assessment of the patient and have reviewed the COLTON Note. I performed a substantive portion of the visit including all aspects of the following. My heck findings include: History is patient presents with orthopnea, dyspnea with minimal activity swelling of her legs that are painful because of how taut they are. She has a history congestive heart failure. 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 She was hospitalized for 23days. She is followed by flosser through the [facility]. She statesshe has difficulty contacting him and seeing him. She was offered option to follow-up with flosser in [place]. Patient denies fever, chills night sweats. Patient denies rhinorrhea, congestion postnasal drainage. Patient does have a slight cough. She denies abdominal pain, nausea, vomit or diarrhea. Denies constipation. She denies dysuria, frequency, urgency or hematuria. She denies decreased or increased urine output. She states when she increases her Lasix she does urinate more. She did double her dose today. She was on a short course where her Lasix was increased. In spite of that she has gained some amount of weight and swelling. Exam is vital signs are marked for slight elevation of blood pressure. She is not hypoxic. HEENT exam is unremarkable. Trachea is midline. There is no lymphadenopathy. Patient does have JVD. Patient does have rales bilaterally. Heart is regular without murmur, gallop or rub. Abdomen is slightly distended and tympanitic. Bowel sounds are diminished. There is no palp pulsatile mass or abdominal bruit. She has no guarding or peritoneal findings. Lower extremity exam reveals marked pitting edema. She also has some pitting edema ofthe sacral area. Medical Decision Making concern patient has exacerbation of congestive heart failure. Will obtain cardiac markers to rule out ischemic cause. She states she is compliant with her medication and diet. She has not had an echo in some time. Her last echo was 2017 and her EF at that time was 55%. Chest x-ray reveals mild cephalization. There is no effusion. Cardiac size is within normal limits. Osseous structures reveal no acute abnormality. EKG doesnot reveal any acute ischemic changes. 1st and 2nd troponin were slightly elevated. Delta is negative. Suspect the elevated troponin is due to the fact that she has heart failure. Her BNP is markedly elevated at greater than 10,000. Other additions or changes: Spoke with Dr. Vera Heller the hospitalist. Full admit PCU History & Record Review Discussion w/independent historian: Patient and Family Additional record(s) reviewed:: Prior outpatient record, Prior ED visit and Prior labs Lab Data Attestation: I reviewed the patient's lab results. Labs: Laboratory Results - last 24 hr 01/07/25 01/07/25 13:00 14:54 WBC 6.3 RBC 3.29 L Hgb 9.4 L Hct 29.6 L MCV 90.0 MCH 28.6 MCHC 31.8 L RDW Std Deviation 65.6 H RDW Coeff of Yonis 19.9 H Plt Count 165 MPV 9.6 Immature Gran % (Auto) 0.300 Neut % (Auto) 59.8 Lymph % (Auto) 24.2 [place] % (Auto) 12.9 H Eos % (Auto) 1.8 Baso % (Auto) 1.0 Absolute Neuts (auto) 3.8 Absolute Lymphs (auto) 1.52 Nucleated RBC % 0 Anisocytosis 1+ Sodium 129 L Potassium 4.2 Chloride 91 L Carbon Dioxide 23.9 Anion Gap 15 BUN 47 H Creatinine 1.77 H Estim Creat Clear Calc 24.26 L Est GFR (MDRD) Non-Af 29 L BUN/Creatinine Ratio 26.4 H Glucose 194 H Calcium 8.8 Troponin T High Sens 71 H* Troponin T Hi Sens 2 Hr 68 H* [place] [address] H Radiography Diagnostic Testing: Clinical Impression(s) from Imaging Studies Chest X-Ray 01/07/25 13:19 IMPRESSION: Findings consistent with mild congestive heart failure. Reading Location: [id number] ED attending interpretation of 2 view chest x-ray shows mild congestive heart failure. EKG Initial EKG: Attestation: I personally reviewed and interpreted this EKG as follows: Interpretation: No Acute Injury Pattern and Atrial Fibrillation Comments: Atrial fibrillation at 77 bpm, occasional ventricular paced complexes Left anterior fascicular block Nonspecific ST changes, no STEMI <Dr. Luis Armando Harry MD - Last Filed: 01/07/25 17:04> [facility] MDM Narrative Medical decision making narrative: History gathered from: Patient and spouse 79-year-old female presents with several weeks of dyspnea and bilateral lower extremity edema. She has had tight swelling from both thighs and down for several weeks. Over the last 5 days she has been taking an increased dose of Lasix as instructed by her flosser without improvement. She is awake alertno distress. Vitals are stable. She is 100% on room air at rest. Lung sounds are very diminished, hard to hear first crackles. Both legs are tight and edematous with pitting edema from both proximal thighs downward. There is no signs of infection. Neurovascularly intact. Labs show normal white count of 6.3 and stable hemoglobin at 9.4. Sodium is 129. Her creatinine of 1.77 is similar to previous. Glucose is 194. proBNP is significantly up at 10,409. Troponin is 71 but EKG is nonischemic and she does not have chest pain and second troponin is stable at 68 so I suspect this is elevated secondary to congestive heart failure. External records reviewed: 11/15/2017 echocardiogram EF 55%. Severe diastolic dysfunction. I have personally performed a face to face assessment of the patient and have reviewed the COLTON Note. I performed a substantive portion of the visit including all aspects of the following. My heck findings include: History is patient presents with orthopnea, dyspnea with minimal activity swelling of her legs that are painful because of how taut they are. She has a history congestive heart failure. 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 She was hospitalized for 23days. She is followed by flosser through the [facility]. She statesshe has difficulty contacting him and seeing him. She was offered option to follow-up with flosser in [place]. Patient denies fever, chills night sweats. Patient denies rhinorrhea, congestion postnasal drainage. Patient does have a slight cough. She denies abdominal pain, nausea, vomit or diarrhea. Denies constipation. She denies dysuria, frequency, urgency or hematuria. She denies decreased or increased urine output. She states when she increases her Lasix she does urinate more. She did double her dose today. She was on a short course where her Lasix was increased. In spite of that she has gained some amount of weight and swelling. Exam is vital signs are marked for slight elevation of blood pressure. She is not hypoxic. HEENT exam is unremarkable. Trachea is midline. There is no lymphadenopathy. Patient does have JVD. Patient does have rales bilaterally. Heart is regular without murmur, gallop or rub. Abdomen is slightly distended and tympanitic. Bowel sounds are diminished. There is no palp pulsatile mass or abdominal bruit. She has no guarding or peritoneal findings. Lower extremity exam reveals marked pitting edema. She also has some pitting edema ofthe sacral area. Medical Decision Making concern patient has exacerbation of congestive heart failure. Will obtain cardiac markers to rule out ischemic cause. She states she is compliant with her medication and diet. She has not had an echo in some time. Her last echo was 2017 and her EF at that time was 55%. Chest x-ray reveals mild cephalization. There is no effusion. Cardiac size is within normal limits. Osseous structures reveal no acute abnormality. EKG doesnot reveal any acute ischemic changes. 1st and 2nd troponin were slightly elevated. Delta is negative. Suspect the elevated troponin is due to the fact that she has heart failure. Her BNP is markedly elevated at greater than 10,000. Other additions or changes: Spoke with Dr. Vera Heller the hospitalist. Full admit PCU Lab Data Labs: Laboratory Results - last 24 hr 01/07/25 01/07/25 13:00 14:54 WBC 6.3 RBC 3.29 L Hgb 9.4 L Hct 29.6 L MCV 90.0 MCH 28.6 MCHC 31.8 L RDW Std Deviation 65.6 H RDW Coeff of Yonis 19.9 H Plt Count 165 MPV 9.6 Immature Gran % (Auto) 0.300 Neut % (Auto) 59.8 Lymph % (Auto) 24.2 [place] % (Auto) 12.9 H Eos % (Auto) 1.8 Baso % (Auto) 1.0 Absolute Neuts (auto) 3.8 Absolute Lymphs (auto) 1.52 Nucleated RBC % 0 Anisocytosis 1+ Sodium 129 L Potassium 4.2 Chloride 91 L Carbon Dioxide 23.9 Anion Gap 15 BUN 47 H Creatinine 1.77 H Estim Creat Clear Calc 24.26 L Est GFR (MDRD) Non-Af 29 L BUN/Creatinine Ratio 26.4 H Glucose 194 H Calcium 8.8 Troponin T High Sens 71 H* Troponin T Hi Sens 2 Hr 68 H* [place] [address] H Radiography Diagnostic Testing: Clinical Impression(s) from Imaging Studies Chest X-Ray 01/07/25 13:19 IMPRESSION: Findings consistent with mild congestive heart failure. Reading Location: [facility] Management Discussion w/another healthcare provider: Hospitalist (Documented under the attending note in the MDM narrative portion of the EMR) Discharge Plan Triage Chief Complaint: Shortness of Breath ED Midlevel Provider: Sheree Simmons ED Provider: Luis Armando Harry Dx/Rx/DC Orders Clinical Impression: Acute exacerbation of CHF (congestive heart failure), Anasarca, History of atrial fibrillation, Failure of outpatient treatment, PAD (peripheral artery disease), HLD (hyperlipidemia), Diabetes mellitus type 2 in obese, Elevated blood pressure reading with diagnosis of hypertension Primary Care Provider: Deysi Collazo NP What to do if you have Problems For any increased pain, shortness of breath, bleeding, nausea or vomiting, chestpain, or any unexpected problems, contact your Primary Care Provider. Call [facility] ([phone]) or report to the closest Emergency Room. Call 911 if necessary. 01/07/25 1648 <Electronically signed by Sheree KING> Cosigner Signature (if applicable): 01/07/25 1704 <Electronically signed by Romel UGARTE> CC: JARROD Collazo ~ Signed [facility] Work Phone: 1(570) 144-527006-30-2025 Instructions* Patient Instructions* Carla Burdick MD - 01/01/2025 11:12 AM EDT I have written you for lasix 40 mg pills Take two in the morning (80 mg) and one (40 mg) in the afternoon for this week Wed-Wednesday Repeat blood work next wednesday [facility] History of Present illness Narrative* Carla Burdick MD - 01/01/2025 11:00 AM EDT Images from the original note were not included. [facility] SECTION OF REGIONAL CARDIOLOGY Cardiology ([facility]) [address] [facility] [id number] OUTPATIENT VISIT DATE 01/01/2025 PRIMARY CARE PHYSICIAN: Doreen Le [address] [place] [address] HISTORY OF PRESENT ILLNESS: Ms. Sanches is a 79 year old woman with a history of remote aortic valve replacement with homograft in 1996 and possible repair of the ascending aorta, chronic diastolic congestive heart failure, hypertension, dyslipidemia, atrial fibrillation with history of pulmonary vein isolation procedures, pacemaker placement and watchman procedure who presents for follow-up. Patient was admitted to [facility]. She was discharged after 2 days. [...] regurgitation Pacemaker 10/21/[address] SELAM BARTLETT [id number] pulse generator, his bundle lead, right atrial lead Peripheral arterial disease Rheumatic fever Steatosis, liver 03/26/2014 fatty liver on US. 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 Lua PACEMAKER 10/2019 PART. HYSTERECTOMY W/WO RMVL OVARIES/TUBES 1973 h/o cervical cancer ovaries remain PAST SURGICAL HISTORY OF 1996 Aortic valve repair, Dr. Apodaca PAST SURGICAL HISTORY OF 2001 [address] Beltrán, [facility] PAST SURGICAL HISTORY OF 2015 clipping and [...] bilaterally CARDIOVASCULAR MEDICINE TESTING: Right Heart Catheterization [facility] [facility]: Cardiac output (Qs) !4.1L/min ! + + + !Cardiac index !2.42L/(min-m^2) ! + + + !HR, R-R, stroke volume !92bpm, 45ml ! + + + !RA pressure a/v (m) !28/28 (23) ! + + + !PA pressure s/d (m) !85/28 (51) ! + + + !PA wedge a/v (m) ! (23) ! + + + !Aortic pressure s/d (m) !163/81 (108) ! + + + !SVR !1650dyn-sec/cm5 ! + + + !SVRI !4071axq-ilq-a^2/cm5 ! + + + !PVR !544dyn-sec/cm5 ! + + + !PVRI !583yae-eoe-y^2/cm5 ! + + + !Total systemic resistance!2097dyn-sec/cm5, 5007tzm-uks-j^2/cm5! Echocardiogram [place] [facility] 10/03/2024: 1. Left ventricle: The cavity [...] or suggestive of Atrial Fibrillation * AT/AF [place]: 67.8% * Total number of events: 2774 Tachycardia: AF w/RVR * Stored EGMs listed as NSVT AND SVT are consistent with or suggestive of Atrial Fibrillation with Rapid Ventricular Response * AT/AF [place]: 67.8% * Total episodes: 9 * Longest [...] testing. She underwent SMA stent placement at [facility] September 2024. She has been treated [...] (HCC) - ICD9: 428.32, 428.0, ICD10: I50.32 (primarydiagnosis) - SPIRONOLACTONE 25 MG TABLET - ECHO [...] the time in A-fib. Recent interrogation with pacemakerwas reviewed 4. PAD (peripheral artery disease) - [...] daily. Carla Burdick MD documented in this encounterAvita Health System06-30-2025 NoteHNO ID: [id number] Author: CARLA BURDICK MD Service: ? Author Type: Physician Type: Progress Notes Filed: 01/01/2025 12:27 Note Text: [facility] SECTION OF REGIONAL CARDIOLOGY Cardiology ([facility]) [address] [facility] [id number] OUTPATIENT VISIT DATE 01/01/2025 PRIMARY CARE PHYSICIAN: Doreen Le [address] [facility] [place] [address] HISTORY OF PRESENT ILLNESS: Ms. Sanches is a 79 year old woman with a history of remote aortic valve replacement with homograft in 1996 and possible repair of the ascending aorta, chronic diastolic congestive heart failure, hypertension, dyslipidemia, atrial fibrillation with history of pulmonary vein isolation procedures, pacemaker placement and watchman procedure who presents for follow-up. Patient was admitted to [facility]. She was discharged after 2 days. [...] regurgitation Pacemaker 10/21/[address] SELAM BARTLETT [id number] pulse generator, his bundle lead, right atrial lead Peripheral arterial disease Rheumatic fever Steatosis, liver 03/26/2014 fatty liver on US. 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 Lua PACEMAKER 10/2019 PART. HYSTERECTOMY W/WO RMVL OVARIES/TUBES 1974 h/o cervical cancer ovaries remain PAST SURGICAL HISTORY OF 1996 Aortic valve repair, Dr. Apodaca PAST SURGICAL HISTORY OF 2001 [address] Beltrán, [facility] PAST SURGICAL HISTORY OF 2015 clipping and [...] mg iron) tabl (more content not included)... [facility] [place]06-24-2025 Telephone encounter Note* Telephone Encounter - Albin Gu APRN.MANAGER REGULATORY - 12/26/2024 9:44 AM EDT Patient called to report weight of 148 [...] answered at this time. Albin Gu APRN.CNP [facility]06-24-2025 Miscellaneous Notes* Telephone Encounter - Albin Gu APRN.CNP - 12/26/2024 9:44 AM EDT Patient called to report weight of 148 [...] time. Albin Gu APRN.CNP documented in this encounterAvita Health System06-18-2025 NoteHNO ID: [id number] Author: LARS SILVA, DO Service: ? Author Type: Physician Type: Progress Notes Filed: 12/20/2024 17:56 Note Text: [facility] [place] DEPARTMENT OF VASCULAR SURGERY OUTPATIENT VISIT DATE December 20, 2024 OUTPATIENT VISIT TYPE ESTABLISHED SERVICE DATE: 12/20/2024 SERVICE TIME: 8:53 AM PRIMARY CARE PHYSICIAN: Deysi Collazo APRN.CNP HISTORY OF PRESENT ILLNESS: Ms. Sanches is a 79 year old female who presents today for a vascular surgery follow-up visit follow up on mesenteric duplex. She recently increased her lasix at the CHF clinic. She had a stent placed in [place] in September. She was recently admitted to [facility] for anemia. She has noted increased swelling. [...] regurgitation Pacemaker 10/21/[address] SELAM BARTLETT [id number] pulse generator, his bundle lead, right atrial lead Peripheral arterial disease Rheumatic fever Steatosis, liver 03/26/2014 fatty liver on US. 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 Lua PACEMAKER 10/2019 PART. HYSTERECTOMY W/WO RMVL OVARIES/TUBES 1974 h/o cervical cancer ovaries remain PAST SURGICAL HISTORY OF 1996 Aortic valve repair, Dr. Apodaca PAST SURGICAL HISTORY OF 2001 [address] Beltrán, [facility] PAST SURGICAL HISTORY OF 2016 clipping and [...] procedure on 01/12/22, treate (more content not included)...[facility] [place]06-18-2025 History of Present illness Narrative* Lars Silva, DO - 12/20/2024 8:53 AM EDT Images from the original note were not included. [facility] [place] DEPARTMENT OF VASCULAR SURGERY OUTPATIENT VISIT DATE December 20, 2024 OUTPATIENT VISIT TYPE ESTABLISHED SERVICE DATE: 12/20/2024 SERVICE TIME: 8:53 AM PRIMARY CARE PHYSICIAN: Deysi Collazo APRN.CNP HISTORY OF PRESENT ILLNESS: Ms. Sanches is a 79 year old female who presents today for a vascular surgery follow-up visit follow up on mesenteric duplex. She recently increased her lasix at the CHF clinic. She had a stent placed in [place] in September. She was recently admitted to [facility] for anemia. She has noted increased swelling. [...] regurgitation Pacemaker 10/21/[address] SELAM BARTLETT [id number] pulse generator, his bundle lead, right atrial lead Peripheral arterial disease Rheumatic fever Steatosis, liver 03/26/2014 fatty liver on US. 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 Lua PACEMAKER 10/2019 PART. HYSTERECTOMY W/WO RMVL OVARIES/TUBES 1974 h/o cervical cancer ovaries remain PAST SURGICAL HISTORY OF 1996 Aortic valve repair, Dr. Apodaca PAST SURGICAL HISTORY OF 2001 [address] Beltrán, [facility] PAST SURGICAL HISTORY OF 2015 clipping and [...] 2024 TIME: 8:53 AM documented in this encounterAvita Health System06-17-2025 NoteHNO ID: [id number] Author: GWEN VALENTINE RN Service: ? Author [...] bleeding or swelling noted. Pt tolerated well. [id number] History of Present illness Narrative* Gwen Valentine RN - 12/19/2024 11:43 AM EDT Pt seen in the outpatient CHF clinic. Lasix 40 mg IV ordered. IV started to right AC with 22g angiocath. Good blood return, no redness, no swelling. Lasix given and flushed per protocol. IV D/Cd and pressure held x 5 minutes. Dry dressing and coband applied. No bleeding or swelling noted. Pt tolerated well. * Albin Gu APRN.JASPREET - 12/19/2024 11:00 AM EDT Images from the original note were not included. [facility] [place] [facility] Failure [facility] OUTPATIENT VISIT DATE December 18, 2024 OUTPATIENT VISIT TYPE ESTABLISHED PRIMARY CARE PHYSICIAN: Deysi Collazo APRN.JASPREET CHIEF COMPLAINT: No chief complaint on file. HISTORY OF PRESENT ILLNESS: Berta Sanches is a 79 year old female who presents today for a follow-up visit in the Heart Failure Clinic. The patient was last seen in office 11/03. The following changes were made at that time: 20 mg IV lasix. Furthermore, suggested ER evaluation due to kidney function and sodium level howeverpatient and did not wish to proceed.. Past [...] angiogram, angioplasty of SMA, 8 shockwave SMA, stentingof SMA viabahn 7 x 59 mm, DCB SMA Mynx closure on 10/02/2024. She was found to have MONIQUE on 10/03. Nephr ology consulted and started CRRT. This was however, stopped on 10/05. Cardiology was consulted for atrial fibrillation which she developed post operatively. She was placed on amio gtt in which she thenconverted. Due to fluid overload, she was diuresed with IV lasix BID. At time of discharge, she wasstarted on aspirin, atorvastatin, clopidogrel and pantoprazole. She was taken off spironolactone, losartan, simvastatin. Patient called HF Clinic on 10/12 to discuss recent hospitalization. At that time, the patient stated her admission weight was 136 lbs and when she arrived home from the hospital her weight was 157 lbs. She denied shortness of breath. Reported feeling fluid overloaded [facility] [place] [facility] Discussed with her taking lasix as it was prescribed. As her spironolactone was stopped, did advise patient restart this at 25 mg once a day for four days only. She was instructed to call office in a week to review symptoms. On 10/15, patient presented back to [facility] for gastrointestinal bleed. She had a [...] and entresto. The patient wished to leave [facility] so she could return to [place]. Cardiology and Pulmonary agreed with discharge. Patient [...] future EGD. Discharged on oral iron. Patient todiscuss stopping plavix with general surgery. Increase in PPI to BID to prevent GI bleed. Hospital admission weight 145 lbs Hospital discharge weight 144 lbs Was seen by cardiology on 11/06. She was taken off lasix and started on torsemide twice a day as cardiology suggested worsening right sided heart failure due to pulmonary hypertension. Her losartan wasalso held. On 11/14, the patient notified cardiology [...] such as walking from the car to theclinic. She also reports significant fatigue, which she [...] vascular center tomorrow and has a follow-up appointmentwith Dr. Burdick on January 01. She reports [...] 12/19 (stopped torsemide 12/15), 12.5 mg BID spironolactone,metoprolol PLAN AND RECOMMENDATIONS: 1. Chronic diastolic congestive [...] regurgitation Pacemaker 10/21/[address] SELAM BARTLETT W1DR01 pulse generator, his bundle lead, right atrial lead Peripheral arterial disease Rheumatic fever Steatosis, liver 03/26/2014 fatty liver on US. 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 Lua PACEMAKER 10/2019 PART. HYSTERECTOMY W/WO RMVL OVARIES/TUBES 1974 h/o cervical cancer ovaries remain PAST SURGICAL HISTORY OF 1996 Aortic valve repair, Dr. Apodaca PAST SURGICAL HISTORY OF 2001 [address] Beltrán, [facility] PAST SURGICAL HISTORY OF 2016 clipping and [...] Negative for: +Weakness, Paralysis, Numbness, Tingling, Tremor, Nervousnessor anxiety, Depressed mood, Memory loss SKIN: Negative for: Rash, Itching HEMATOLOGICAL/LYMPHATIC: Positive for: Easy bruising and Easy bleeding ENDOCRINE: Negative for: Heat or Cold Intolerance, Excessive Sweating, Frequent Urination, FrequentThirst PHYSICAL EXAMINATION: BP 144/54 Pulse 79 Wt [...] impression and interpretation as noted. Federico Hammonds [id number] DEVICE CHECK 10/04/2024: Tachycardia: AF * Stored EGMs are consistent with or suggestive of Atrial Fibrillation * AT/AF [place]: 67.8% * Total number of events: 2774 Tachycardia: AF w/RVR * Stored EGMs listed as NSVT AND SVT are consistent with or suggestive of Atrial Fibrillation with Rapid Ventricular Response * AT/AF [place]: 67.8% * Total episodes: 9 * Longest episode: 28 SECS * Fastest episode:207 BPM Remote Device Evaluation [employer] [facility] * Device type: DUAL LEAD PACEMAKER * Presenting Rhythm: AF/ VS * Battery Status: Battery is at OK, 9.83 yrs . * Atrial Arrhythmias: There have been 12 atrial detections. Anticoagulants listed: _LAAC____ * Ventricular Arrhythmias: There have been __0 TRUE_ ventricular detections. * Lead Measurements: Capture thresholds, sensing, and lead impedances are appropriate. * Other Diagnostics: AP 64.4 HIDE BUYER 9.3% Tachycardia: AF * Stored EGMs are consistent with or suggestive of Atrial Fibrillation * AT/AF [place]: 8.2% (THIS PERCENT IS INACCCURATE,LIKELY CLOSER TO [...] Discussed red flags and when to call MD/BACK TENDER CYLINDER [facility]. Medications reconciled at end of visit: yes I spent 40 minutes in this visit, with more than 50% of the time devoted to patient counseling. Recording using Tune[employer] software for draft documentation was discussed with patient/authorized retail representative. All questions were welcome and answered. Patient/authorized retail representative agreed toproceed. SIGNATURE: Albin Gu APRN.CNP PATIENT NAME: Berta Sanches DATE: December 19, 2024 TIME: 1100 documented in this encounterAvita Health System06-17-2025 NoteHNO ID: [id number] Author: ALBIN GU APRN.CNP Service: ? Author Type: Nurse Practitioner Type: Progress Notes Filed: 12/19/2024 11:45 Note Text: [facility] [place] [facility] Heart Failure [facility] OUTPATIENT VISIT DATE December 18, 2024 OUTPATIENT VISIT TYPE ESTABLISHED PRIMARY CARE PHYSICIAN: Deysi Collazo APRN.CNP CHIEF COMPLAINT: No chief complaint on [...] and was worried about traveling home to [place] in a few days. Discussed with her taking lasix as it was prescribed. As her spironolactone was stopped, did advise patient restart this at 25 mg once a day for four days only. She was instructed to call office in a week to review symptoms. On 10/15, patient presented back to [facility] for gastrointestinal bleed. She had a [...] and entresto. The patient wished to leave [facility] so she could return to [place]. Cardiology and Pulmonary agreed with discharge. Patient [...] monitoring her sodium intake (more content not included)...[id number] Instructions* Patient Instructions* Albin Gu APRN.JASPREET - 12/19/2024 10:59 AM EDT 40 mg [...] or concern, you can call me at [phone]. documented in this encounterAvita Health System06-11-2025 Telephone encounter Note * Telephone Encounter - Alex Gonzalez - 12/13/2024 9:28 AM EDT Transitional Care Management (TCM) [facility] Monitoring Program Provider Action / FYI: N/A SUMMARY: Outreach type: INITIAL OUTREACH Discharge Network Status: In-Network Discharge Source of Patient: [facility] TCM Discharge Report Patient discharged from [facility] on December 12. Admitted for Acute on chronic diastolic CHF (congestive heart failure) (HCC). Contact made with patient: No - next outreach attempt will be on next business day. Alex Betancourt December 13, 2024 9:35 AM [facility]06-11-20[facility] Miscellaneous Notes* Telephone Encounter - Alex Gonzalez - 12/13/2024 9:28 AM EDT Transitional Care Management (TCM) [facility] Monitoring [facility] Provider Action / FYI: N/A SUMMARY: Outreach type: INITIAL OUTREACH Discharge Network Status: In-Network Discharge Source of Patient: [facility] TCM Discharge Report Patient discharged from [facility] on December 12. Admitted for Acute on chronic diastolic CHF (congestive heart failure) (HCC). Contact made with patient: No - next outreach attempt will be on next business day. Alex Betancourt December 13, 2024 9:35 AM documented in this encounterAvita Health System06-10-2025 NoteHNO ID: [id number] Author: STACIE LONDONO RN Service: Care Management [...] Primary Care Physician Primary Care Physician Name/Phone: eDysi Collazo APRN.MANAGER REGULATORY [phone] Additional Information: na Discharge order written for today, patient discharged home with no services. Family will transport. SIGNATURE: Stacie Londono RN PATIENT NAME: Berta Sanches DATE: December 12, 2024 TIME: 9:13 [facility]MAcm[facility] [id number] Telephone encounter Note* Telephone Encounter - Deysi Collazo APRN.CNP - 12/11/2024 1:06 PM EDT Noted. Deysi Collazo APRN.CNP [facility]06-09-2025 Miscellaneous Notes* Telephone Encounter - Deysi Collazo APRN.CNP - 12/11/2024 1:06 PM EDT Noted. Deysi Collazo APRN.CNP * Telephone Encounter - Sigifredo Rivera LPN - 12/11/2024 11:15 AM EDT Pt re admitted to [facility]. Sigifredo Rivera LPN * Telephone Encounter - Marilyn Cesar - 12/11/2024 11:05 AM EDT Patient called to cancel hospital follow up due to re admission yesterday 12/10/2024 documented in this encounterAvita Health System06-09-2025 NoteHNO ID: [id number] Author: MAXIMINO JENNINGS RN Service: Care Management Author Type: Registered Nurse Type: Care Mgt Initial Assessment Filed: 12/11/2024 11:51 Note Text: CARE MANAGEMENT: ASSESSMENT AND DISCHARGE PLAN SERVICE DATE: December 11, 2024 SERVICE TIME: 11:50 AM PCP: Deysi Collazo APRN.CNP Primary Contact: Extended Emergency Contact Information Primary Emergency Contact: Natanael Sanches Address: [address] [place] [address] Mobile Relation: Spouse Admission Status: Inpatient Insurance Provider: [employer] PPO Discharge Planning requested by: Per Department Practice Potential Transition Plans Home Advance Directives Current Advance Directive: Living Will, Health Care Power of Fire Boat Engineer In Chart: No Current Living Arrangements and [...] None Discharge Planning Patient Goal(s): General wellness [place] Explained: [place] Given: No Reason Not Given: No placements necessary Are you interested in bedside delivery of your medications? Pretty, Brayden Cruz Discharge Planning Participant(s): Patient Patient/Family Comments: Caregiver [...] assessment. 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 to transport upon DC. CM assigned will continue to follow for DC planning needs. 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 Patient presenting with [...] clot prevention: low risk SIGNATURE: Juan Diego Knowles MD DATE: 12/11/2024 TIME: 11:47 [facility]MA[facility] [id number] Telephone encounter Note* Telephone Encounter - Sigifredo Rivera LPN - 12/11/2024 11:15 AM EDT Pt re admitted to [facility]. Sigifredo Rivera LPN [facility]06-09-2025 Telephone encounter Note* Telephone Encounter - Marilyn Cesar - 12/11/2024 11:05 AM EDT Patient called to cancel hospital follow up due to re admission yesterday 12/10/2024 [facility]-19-[facility] History of Present illness Narrative* Carla Burdick MD - 11/20/2024 8:00 AM EDT Images from the original note were not included. [facility]STITUTE SECTION OF REGIONAL CARDIOLOGY Cardiology ([facility]) [address] [facility] [id number] OUTPATIENT VISIT DATE PRIMARY CARE PHYSICIAN: Doreen Le [address] [place] [address] HISTORY OF PRESENT ILLNESS: Ms. Sanches is [...] to 10 pounds. She has been compliant withthe torsemide and Aldactone. She has decreased swelling [...] regurgitation Pacemaker 10/21/[address] SELAM BARTLETT W1DR01 pulse generator, his bundle lead, right atrial lead Peripheral arterial disease Rheumatic fever Steatosis, liver 03/26/2014 fatty liver on US. 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 Lua PACEMAKER 10/2019 PART. HYSTERECTOMY W/WO RMVL OVARIES/TUBES 1974 h/o cervical cancer ovaries remain PAST SURGICAL HISTORY OF 1996 Aortic valve repair, Dr. Apodaca PAST SURGICAL HISTORY OF 2001 [address] Beltrán, [facility] PAST SURGICAL HISTORY OF 2016 clipping and [...] BP Cuff Size: Regular Adult) Pulse 84 Resp12 Ht 157.5 cm (5' 2") Wt 65.2 [...] palpate. CARDIOVASCULAR MEDICINE TESTING: Right Heart Catheterization [place] [facility] 10/24/2024: Cardiac output (Qs) !4.1L/min ! + + + !Cardiac index !2.42L/(min-m^2) ! + + + !HR, R-R, stroke volume !92bpm, 45ml ! + + + !RA pressure a/v (m) ! () ! + + + !PA pressure s/d (m) ! (51) ! + + + !PA wedge a/v (m) ! () ! + + + !Aortic pressure s/d (m) !163/81 (108) ! + + + !SVR !1650dyn-sec/cm5 ! + + + !SVRI !0538ebu-enm-o^2/cm5 ! + + + !PVR !544dyn-sec/cm5 ! + + + !PVRI !511csb-dgf-s^2/cm5 ! + + + !Total systemic resistance!2097dyn-sec/cm5, 0739lyo-jqw-j^2/cm5! Echocardiogram [place] [facility] 10/03/2024: 1. Left ventricle: The cavity [...] or suggestive of Atrial Fibrillation * AT/AF [place]: 67.8% * Total number of events: 2774 Tachycardia: AF w/RVR * Stored EGMs listed as NSVT AND SVT are consistent with or suggestive of Atrial Fibrillation with Rapid Ventricular Response * AT/AF [place]: 67.8% * Total episodes: 9 * Longest [...] testing. She underwent SMA stent placement at [facility] September 2024. She has been treated [...] TABLET Carla Burdick MD documented in this encounterAvita Health System05-19-2025 NoteHNO ID: [id number] Author: CARLA BURDICK MD Service: ? Author Type: Physician Type: Progress Notes Filed: 11/20/2024 08:50 Note Text: [facility] SECTION OF REGIONAL CARDIOLOGY Cardiology ([facility]) [address] [facility] [id number] OUTPATIENT VISIT DATE PRIMARY CARE PHYSICIAN: Doreen Le [address] [place] [address] HISTORY OF PRESENT ILLNESS: Ms. Sanches is [...] regurgitation Pacemaker 10/21/[address] SELAM BARTLETT W1DR01 pulse generator, his bundle lead, right atrial lead Peripheral arterial disease Rheumatic fever Steatosis, liver 03/26/2014 fatty liver on US. 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 Lua PACEMAKER 10/2019 PART. HYSTERECTOMY W/WO RMVL OVARIES/TUBES 1973 h/o cervical cancer ovaries remain PAST SURGICAL HISTORY OF 1996 Aortic valve repair, Dr. Apodaca PAST SURGICAL HISTORY OF 2001 [address] Beltrán, [facility] PAST SURGICAL HISTORY OF 2015 clipping and [...] tablet by mouth t (more content not included)...[facility] [place]05-14-2025 Telephone encounter Note* Telephone Encounter - Mckenzie Rodriguez MA - 11/15/2024 3:39 PM EDT Scheduled. Mckenzie Rodriguez MA [facility]05-14-2025 Miscellaneous Notes* Telephone Encounter - Mckenzie Rodriguez MA - 11/15/2024 3:39 PM EDT Scheduled. Mckenzie Rodriguez MA * Telephone Encounter - Carla Burdick MD - 11/15/2024 3:03 PM EDT I spoke to the patient over the phone regarding her test results. She has had weight loss especially over the past few days. She lost 3 pounds overnight when she weighed herself this morning. Have recommended continuing torsemide 20 mg twice daily. Will increase spironolactone to 25 mg twice daily.Plan to see the patient next Wednesday at which time we will repeat a basic metabolic panel and BNP. documented in this encounterAvita [facility] System05-[facility]25 Telephone encounter Note * Telephone Encounter - Carla Burdick MD - 11/15/2024 3:03 PM EDT I spoke to the patient over the phone regarding her test results. She has had weight loss especially over the past few days. She lost 3 pounds overnight when she weighed herself this morning. Have recommended continuing torsemide 20 mg twice daily. Will increase spironolactone to 25 mg twice daily.Plan to see the patient next Wednesday at which time we will repeat a basic metabolic panel and BNP. [facility]05-05-2025 Instructions* Patient Instructions* Carla Burdick MD - 11/06/2024 3:33 PM EDT We are changing the Furosemide to Torsemide 20 mg two times per day Stop taking the Losartan documented in this encounterAvita Health System05-05-2025 History of Present illness Narrative* Carla Burdick MD - 11/06/2024 2:40 PM EDT Images from the original note were not included. [facility] SECTION OF REGIONAL CARDIOLOGY Cardiology ([facility]) [address] [facility] [id number] OUTPATIENT VISIT DATE 11/06/2024 PRIMARY CARE PHYSICIAN: Doreen Le [address] [place] [address] HISTORY OF PRESENT ILLNESS: Ms. Sanches is [...] to the hospital while vacationing in [place]. She underwent SMA stent placement. This was followed by a long admission for decompensated congestive heart failure in the setting of the renal insufficiency. Since returning from [place], she has had difficulties with weight gain and lower extremity edema. She was seen in the heart failure clinic last Wednesday. She was given a dose of IV Lasix but states she hadno significant weight loss after that treatment. She [...] regurgitation Pacemaker 10/21/[address] SELAM BARTLETT [id number] pulse generator, his bundle lead, right atrial lead Peripheral arterial disease Rheumatic fever Steatosis, liver 03/26/2014 fatty liver on US. 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 Lua PACEMAKER 10/2019 PART. HYSTERECTOMY W/WO RMVL OVARIES/TUBES 1974 h/o cervical cancer ovaries remain PAST SURGICAL HISTORY OF 1996 Aortic valve repair, Dr. Apodaca PAST SURGICAL HISTORY OF 2001 [address] Beltrán, [facility] PAST SURGICAL HISTORY OF 2015 clipping and [...] palpate. CARDIOVASCULAR MEDICINE TESTING: Right Heart Catheterization [place] [facility] 10/24/2024: Cardiac output (Qs) !4.1L/min ! + + + !Cardiac index !2.42L/(min-m^2) ! + + + !HR, R-R, stroke volume !92bpm, 45ml ! + + + !RA pressure a/v (m) ! () ! + + + !PA pressure s/d (m) !28 (51) ! + + + !PA wedge a/v (m) ! (23) ! + + + !Aortic pressure s/d (m) !163/81 (108) ! + + + !SVR !1650dyn-sec/cm5 ! + + + !SVRI !6151die-evd-a^2/cm5 ! + + + !PVR !544dyn-sec/cm5 ! + + + !PVRI !761qra-joc-n^2/cm5 ! + + + !Total systemic resistance!2097dyn-sec/cm5, 4596nei-jul-i^2/cm5! Echocardiogram [facility] 10/03/2024: 1. Left ventricle: The cavity [...] or suggestive of Atrial Fibrillation * AT/AF [place]: 67.8% * Total number of events: 2774 Tachycardia: AF w/RVR * Stored EGMs listed as NSVT AND SVT are consistent with or suggestive of Atrial Fibrillation with Rapid Ventricular Response * AT/AF [place]: 67.8% * Total episodes: 9 * Longest [...] testing. She underwent SMA stent placement at [facility] September 2024. She has been treated [...] continue spironolactone . I have asked her tohold her losartan. Will repeat blood work in [...] I65.23 Carla Burdick MD documented in this encounterAvita Health System05-05-2025 NoteHNO ID: [id number] Author: CARLA BURDICK MD Service: ? Author Type: Physician Type: Progress Notes Filed: 11/06/2024 17:01 Note Text: [facility] SECTION OF REGIONAL CARDIOLOGY Cardiology ([facility]) [address] [facility] [id number] OUTPATIENT VISIT DATE 11/06/2024 PRIMARY CARE PHYSICIAN: Doreen Le [address] [place] [address] HISTORY OF PRESENT ILLNESS: Ms. Sanches is [...] to the hospital while vacationing in [place]. She underwent SMA stent placement. This was followed by a long admission for decompensated congestive heart failure in the setting of the renal insufficiency. Since returning from [place], she has had difficulties with weight gain [...] regurgitation Pacemaker 10/21/[address] SELAM BARTLETT [id number] pulse generator, his bundle lead, right atrial lead Peripheral arterial disease Rheumatic fever Steatosis, liver 03/26/2014 fatty liver on US. 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 Lua PACEMAKER 10/2019 PART. HYSTERECTOMY W/WO RMVL OVARIES/TUBES 1973 h/o cervical cancer ovaries remain PAST SURGICAL HISTORY OF 1996 Aortic valve repair, Dr. Apodaca PAST SURGICAL HISTORY OF 2001 [address] Beltrán, [facility] PAST SURGICAL HISTORY OF 2015 clipping and [...] Hypotension MEDICATIONS: clopidogrel (PLAVIX) (more content not included)...[facility] 11-03-2024 Telephone encounter Note* Telephone Encounter - Deysi Collazo APRN.CNP - 11/03/2024 4:29 PM EDT Looks like patient was seen today at heart failure clinic and had repeat labs. From notes, it lookslike patient continued to refuse ER. She has an appt w/ cardiology on Wednesday and is to repeat labs at that time. [facility]05-02-2025 Miscellaneous Notes* Telephone Encounter - Deysi Collazo APRN.CNP - 11/03/2024 4:29 PM EDT Looks like patient was seen today at heart failure clinic and had repeat labs. From notes, it lookslike patient continued to refuse ER. She has an appt w/ cardiology on Wednesday and is to repeat labs at that time. * Telephone Encounter - Quin Lama MA - 11/02/2024 9:00 AM EDT Spoke with patient's , Natanael. Patient was in background listening. Relayed message below in detail. Reiterated need for ER for IVF and lab monitoring. Both patient and spouse again declined going to the ER. stated the "kidney doctor" at [facility] said her levels are not life [...] patient in to the "heart center" at [facility] today for the IVF. He said they do outpatient, half day treatments. He asked me if I knew anything about this and I explained to him that I personally wasnot familiar with this but would ask a provider here about it. They are requesting repeat labs to monitor until they see Dr. Burdick. They had an appointment with Deysi Collazo on 11/07/24 which was canceled. They were not aware that this appointment was canceled. Time slot no longer available. Offered another appointment which theydeclined. Requesting labs to be ordered without appointment. Quin Lama MA * Telephone Encounter - Shaye Domingo APRN.CNP - 10/31/2024 4:46 PM EDT Creatinine is not improved and likely will not improve at home. Need IVF and Laboratory monitoring.Patient was not d/c'd from [facility], she left AMA. MONIQUE can cause group home damage and if uncorrected patient could end up with permanent kidney damage. We are not allowed to force patients to stay no matter how sick they are so the fact that she was "allowed" to leave is not an indication thather lab values are not serious. Patient needs to proceed to ER as some of the medications she is oncan make her kidney function worse and not better if not corrected. * Telephone Encounter - Radha Pyle RN - 10/31/2024 2:20 PM EDT Spouse returns call with patient. Patient declines [...] Please review and advise, Radha Pyle RN * Telephone Encounter - Shaye Domingo APRN.CNP - 10/31/2024 1:35 PM EDT Left message for patient to return call. Patient's kidney function has gotten significantly worse and she needs to proceed to ER immediately. documented in this encounterAvita Health System05-02-2025 Telephone encounter Note * Telephone Encounter - Albin Gu APRN.CNP - 11/03/2024 12:44 PM EDT Called patient to review labs with patient. [...] with plan of care. Albin Gu APRN.CNP [facility]05-02-2025 Miscellaneous Notes* Telephone Encounter - Albin Gu APRN.CNP - 11/03/2024 12:44 PM EDT Called patient to review labs with patient. [...] care. Albin Gu APRN.CNP documented in this encounterAvita Health System05-02-2025 History of Present illness Narrative* Gwen Valentine RN - 11/03/2024 10:00 AM EDT Pt seen in outpatient CHF clinic. Lasix 20 mg IV ordered. IV started to right AC with 22g angiocath. Good blood return, no redness, no swelling. Lasix given and flushed per protocol. IV D/Cd, pressure held x 5 minutes. Dry dressing and coband applied. No bleeding, no swelling noted. Pt tolerated well. * Albin Gu APRN.CNP - 11/03/2024 9:00 AM EDT Images from the original note were not included. [facility] [place] [facility] Heart Failure Clinic OUTPATIENT VISIT DATE November 03, 2024 OUTPATIENT VISIT TYPE ESTABLISHED PRIMARY CARE PHYSICIAN: Deysi Collazo APRN.CNP CHIEF COMPLAINT: Patient presents with: Breathing Problem Leg Edema HISTORY OF PRESENT ILLNESS: Berta Sanches is a 79 year old female who presents today for a follow-up visit in the Heart Failure Clinic. The patient was last seen in office 04/07. The following changes were made at that time:none. Past medical history is significant for hypertension, [...] feeling fluid overloaded and was [place] about [place] to [place] in a few days. Discussed with her taking lasix as it was prescribed. As her spironolactone was stopped, did advise patient restart this at 25 mg once a day for four days only. She was instructed to call office in a week to review symptoms. On 10/15, patient presented back to [facility] for gastrointestinal bleed. She had a [...] and entresto. The patient wished to leave [facility] so she could return to [place]. Cardiology and Pulmonary agreed with discharge. Today, the patient reports feeling okay. Since she was hospitalized in [place], she has not felt that well. Feels very tired. Denies shortness of breath. Was seen by her PCP on Wednesday who suggested patient be admitted due to significant worsening in kidney function however, the patient and husbanddeclined admission as she just returned home the day before. States she was started on bumex drip and then received oral bumex while in [place] and noted a worsening in kidney function. [...] few pieces of roasted chicken, asparagus and s alad. While in [place], she was very conscious about her diet. She weighed every day. She feels after the hospitalization, she gained approx 20 lbs which she did call and discuss this with this HF EDGE STRIPPER. Wearing lidocaine patch over site to right side of neck as she mentions having a temporary dialysisport in place during first hospitalization. This area was bothersome to her however, she does mention the discomfort is improving. Does not have a tennis racket repairer at this time. Can lay flat with one pillow. Reports shortness of breath. Denies chest pain, fever, chills, dizziness, lightheadedness. Mild leg swelling. IMPRESSION: NYHA Functional Class: II Stage: C heart failure Berta Sanches is a 79 year-old female who presents to the Heart Failure Clinic for follow up. Appears minimally hypervolemic on examination. Will administer IV lasix in office. Based on most recentGFR and GFR's noted during her last hospital [...] than 10/31 labs, they are instructed to goto ER. Discussed risk and benefits of admission [...] regurgitation Pacemaker 10/21/[address] SELAM BARTLETT [id number] pulse generator, his bundle lead, right atrial lead Peripheral arterial disease Rheumatic fever Steatosis, liver 03/26/2014 fatty liver on US. 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 Lua PACEMAKER 10/2019 PART. HYSTERECTOMY W/WO RMVL OVARIES/TUBES 1974 h/o cervical cancer ovaries remain PAST SURGICAL HISTORY OF 1996 Aortic valve repair, Dr. Apodaca PAST SURGICAL HISTORY OF 2001 [address] Beltrán, [facility] PAST SURGICAL HISTORY OF 2016 clipping and [...] Sweating, Frequent Urination, FrequentThirst PHYSICAL EXAMINATION: BP (!) 121/44 Pulse 66 [...] impression and interpretation as noted. Federico Hammonds [id number] I have personally reviewed the Laboratory Testing and Echocardiogram. COUNSELING: We discussed the following non-pharmacological measures during this visit: Smoking and alcohol abstinence/cessation, if applicable Dietary and medication compliance Monitoring daily weights and blood pressures Exercise regimen When to call our office Heart Failure Education Booklet: Previously given. Discussed red flags and when to call MD/BACK TENDER CYLINDER or [facility]. Medications reconciled at end of visit: yes I spent 60 minutes in this visit, with more than 50% of the time devoted to patient counseling. SIGNATURE: Albin Gu APRN.CNP PATIENT NAME: Berta Sanches DATE: November 03, 2024 TIME: 0855 documented in this encounterAvita Health System05-02-2025 NoteHNO ID: [id number] Author: GWEN VALENTINE, RN Service: ? Author [...] No bleeding, no swelling noted. Pt tolerated well.[id number] NoteHNO ID: [id number] Author: ALBIN GU APRN.CNP Service: ? Author Type: Nurse Practitioner Type: Progress Notes Filed: 11/03/2024 10:28 Note Text: [facility] [place] [facility] Heart Failure Clinic OUTPATIENT VISIT DATE November 03, 2024 OUTPATIENT VISIT TYPE ESTABLISHED PRIMARY CARE PHYSICIAN: Deysi Collazo APRN.JASPREET CHIEF COMPLAINT: Patient presents with: Breathing [...] and was worried about traveling home to [place] in a few days. Discussed with her taking lasix as it was prescribed. As her spironolactone was stopped, did advise patient restart this at 25 mg once a day for four days only. She was instructed to call office in a week to review symptoms. On 10/15, patient presented back to [facility] for gastrointestinal bleed. She had a [...] and entresto. The patient wished to leave [facility] so she could return to [place]. Cardiology and Pulmonary agreed with discharge. Today, the patient reports feeling okay. Since she was hospitalized in [place], she has not felt that well. Feels very tired. Denies shortness of breath. Was seen by her PCP on Wednesday who suggested patient be admitted due to significant worsening in kidney function however, the patient and declined admission as she just returned home the day before. States she was started on bumex drip and then received oral bumex while in [place] and noted a worsening in kidney function. [...] chicken, asparagus and salad. While in [place], she was very conscious about her diet. She weighed every day. She feels after the first hospitalization, she gained approx 20 lbs which she did call and discuss this with this HF EDGE STRIPPER. Wearing lidocaine patch over site to right side of neck as she mentions having a temporary dialysis port in place during first hospitalization. This area was bothersome to her however, she does mention the discomfort is improving. Does not have a tennis racket repairer at this time. Can lay flat with [...] and kidney function sug (more content not included)...[id number] Instructions* Patient Instructions* Albin Gu APRN.JASPREET - 11/03/2024 8:51 AM EDT Continue current [...] or concern, you can call me at [phone]. documented in this encounterAvita Health System05-01-2025 Telephone encounter Note * Telephone Encounter - Quin Lama MA - 11/02/2024 9:00 AM EDT Spoke with patient's , Natanael. Patient was in background listening. Relayed message below in detail. Reiterated need for ER for IVF and lab monitoring. Both patient and spouse again declined going to the ER. stated the "kidney doctor" at [facility] said her levels are not life [...] patient in to the "heart center" at [facility] today for the IVF. He said they do outpatient, half day treatments. He asked me if I knew anything about this and I explained to him that I personally wasnot familiar with this but would ask a provider here about it. They are requesting repeat labs to monitor until they see Dr. Burdick. They had an appointment with Deysi Collazo on 11/07/24 which was canceled. They were not aware that this appointment was canceled. Time slot no longer available. Offered another appointment which theydeclined. Requesting labs to be ordered without appointment. Quin Lama MA [facility]04-30-2025 Telephone encounter Note* Telephone Encounter - Irma Hwang RN - 11/01/2024 1:52 PM EDT Patient scheduled for 11/06/24. Irma Hwang RN [facility]04-30-2025 Miscellaneous Notes* Telephone Encounter - Irma Hwang RN - 11/01/2024 1:52 PM EDT Patient scheduled for 11/06/24. Irma Hwang RN documented in this encounterAvita Health System04-29-2025 Telephone encounter Note * Telephone Encounter - Shaye Domingo APRN.JASPREET - 10/31/2024 4:46 PM EDT Creatinine is not improved and likely will not improve at home. Need IVF and Laboratory monitoring.Patient was not d/c'd from [facility], she left AMA. MONIQUE can cause group home damage and if uncorrected patient could end up with permanent kidney damage. We are not allowed to force patients to stay no matter how sick they are so the fact that she was "allowed" to leave is not an indication thather lab values are not serious. Patient needs to proceed to ER as some of the medications she is oncan make her kidney function worse and not better if not corrected. [facility]04-29-[facility] Telephone encounter Note* Telephone Encounter - Radha Pyle RN - 10/31/2024 2:20 PM EDT Spouse returns call with patient. Patient declines [...] Please review and advise, Radha Pyle RN [facility]04-29-2025 Telephone encounter Note* Telephone Encounter - Shaye Domingo APRN.CNP - 10/31/2024 1:35 PM EDT Left message for patient to return call. Patient's kidney function has gotten significantly worse and she needs to proceed to ER immediately. [facility]04-29-2025 NoteHNO ID: [id number] Author: SHAYE DOMINGO APRN.CNP Service: ? Author Type: Nurse Practitioner Type: Progress Notes Filed: 10/31/2024 12:52 Note Text: Chief Complaint Patient presents with: Hospital F/U [facility] Berta Sanches is a 79 year old female who presents here today for Above Complaints.. Acute Mesenteric Ischemia: - Initially admitted to [facility] on 10/02/2024. - Underwent femoral ultrasound-guided angiogram with angioplasty and stenting of the SMA. - Required CRRT for MONIQUE post-op. - Developed AFib with RVR post-op. - Discharged after 23-day hospitalization. Acute on Chronic Heart Failure: - Given IV Lasix during initial admission. - Readmitted to [facility] on 10/15/2024 for acute on chronic [...] regurgitation Pacemaker 10/21/[address] SELAM BARTLETT [id number] pulse generator, his bundle lead, right atrial lead Peripheral arterial disease (HCC) Rheumatic fever Steatosis, liver 03/26/2014 fatty liver on US. No gallstones Tachy-pavan syndrome (HCC) Previous Surgical History PAST SURGICAL HISTORY Procedure Laterality Date ABLATION 2018 for afib ANESTHESIA EXTERNAL MIDDLE AND INNER EAR W/BX NOS 2003, 2004,04/30/15 CARDIOVERSION 2018 EGD 02/28/2021 ESOPHAGOGASTRODUODENOSCOPY TRANSORAL DIAGNOSTIC 02/28/2021 LAP COLECTOMY, SIGMOID W/AREA DIRECTOR 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 Lua PACEMAKER 10/2019 PART. HYSTERECTOMY W/WO RMVL OVARIES/TUBES 1974 h/o cervical cancer ovaries remain PAST SURGICAL HISTORY OF 1996 Aortic valve repair, Dr. Apodaca PAST SURGICAL HISTORY OF 2001 [address] Beltrán, [facility] PAST SURGICAL HISTORY OF 2016 clipping and [...] 24 hr tablet Take (more content not included)...[facility]04-29-2025 History of Present illness Narrative* Shaye Domingo, EDGE STRIPPER.MANAGER REGULATORY - 10/31/2024 11:11 AM EDT Chief Complaint Patient presents with: Hospital F/U [facility] Berta Sanches is a 79 year old female who presents here today for Above Complaints.. Acute Mesenteric Ischemia: - Initially admitted to [facility] on 10/02/2024. - Underwent femoral ultrasound-guided angiogram with angioplasty and stenting of the SMA. - Required CRRT for MONIQUE post-op. - Developed AFib with RVR post-op. - Discharged after 23-day hospitalization. Acute on Chronic Heart Failure: - Given IV Lasix during initial admission. - Readmitted to [facility] on 10/15/2024 for acute on chronic [...] the left colon at approximately 45 cm fromthe entry site, severely ulcerated mucosa with stigmata [...] regurgitation Pacemaker 10/21/[address] SELAM BARTLETT [id number] pulse generator, his bundle lead, right atrial lead Peripheral arterial disease (HCC) Rheumatic fever Steatosis, liver 03/26/2014 fatty liver on US. No gallstones Tachy-pavan syndrome (HCC) Previous Surgical History PAST SURGICAL HISTORY Procedure Laterality Date ABLATION 2018 for afib ANESTHESIA EXTERNAL MIDDLE & INNER EAR W/BX NOS 2002, 2004,04/30/15 CARDIOVERSION 2018 EGD 02/28/2021 ESOPHAGOGASTRODUODENOSCOPY TRANSORAL DIAGNOSTIC 02/28/2021 LAP COLECTOMY, SIGMOID W/AREA DIRECTOR 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 Lua PACEMAKER 10/2019 PART. HYSTERECTOMY W/WO RMVL OVARIES/TUBES 1974 h/o cervical cancer ovaries remain PAST SURGICAL HISTORY OF 1996 Aortic valve repair, Dr. Apodaca PAST SURGICAL HISTORY OF 2001 [address] Beltrán, [facility] PAST SURGICAL HISTORY OF 2015 clipping and [...] CONSULT TO PHYSICAL THERAPY - CONSULT TO PRICK STITCHER 6. Acute on chronic diastolic congestive heart failure (HCC) - ICD9: 428.33, 428.0, ICD10: I50.33 - HFpEF 50+ - Compensated - Continue current medications - Encouraged sodium restriction - Encouraged daily weights - Call if 3 lbs gained in 1 days - Will contact Dr. Burdick's office for sooner follow up to discuss recommendations from cardiology/nephrology from [facility]. 7. Hospital discharge follow-up - ICD9: V67.59, ICD10: Z09 -[facility] [facility]. Shaye Domingo APRN.CNP documented in this encounterAvita Health System04-10-2025 Telephone encounter Note * Telephone Encounter - Albin Gu APRN.CNP - 10/12/2024 12:29 PM EDT Patient called to schedule appt in HF Clinic. Patient also mentions she is currently in [place]. She was admitted to the hospital for abdominal pain. She was treated with intravenous lasix as well, per the patient. However, she mentions her admission weight being 136 lbs and upon discharge her weight was 157 lbs. The patient denies feeling short of breath however, feels she is retaining fluid andis worried. Discussed in detail the importance of taking the lasix as prescribed upon discharge. She was instructed to take 40 mg lasix BID for 5 days and then resume 20 mg lasix BID. Her losartan and spironolactone were held due to MONIQUE during stay; however, based on approx 20 lb weight gain instruc hermila patient to resume 25 mg spironolactone for the next 4 days. Red flags reviewed with patient on when to go to ER. She will call office on Wednesday to review weight and symptoms. Patient understands plan of care. All questions answered at this time. Albin Gu APRN.CNP [facility]04-10-2025 Miscellaneous Notes* Telephone Encounter - Albin Gu APRN.CNP - 10/12/2024 12:29 PM EDT Patient called to schedule appt in HF Clinic. Patient also mentions she is currently in [place]. She was admitted to the hospital for abdominal pain. She was treated with intravenous lasix as well, per the patient. However, she mentions her admission weight being 136 lbs and upon discharge her weight was 157 lbs. The patient denies feeling short of breath however, feels she is retaining fluid andis worried. Discussed in detail the importance of taking the lasix as prescribed upon discharge. She was instructed to take 40 mg lasix BID for 5 days and then resume 20 mg lasix BID. Her losartan and spironolactone were held due to MONIQUE during stay; however, based on approx 20 lb weight gain instruc hermila patient to resume 25 mg spironolactone for the next 4 days. Red flags reviewed with patient on when to go to ER. She will call office on Wednesday to review weight and symptoms. Patient understands plan of care. All questions answered at this time. Albin Gu APRN.CNP documented in this encounterAvita Health System01-27-2025 Telephone encounter Note * Telephone Encounter - Melida Koo APRN.CNP - 07/31/2024 11:54 AM EST Pt called to request refill for KDur as she has run out of prescription. She states that she is currently in [place] and will be in [place] until October. [facility] called in [place], [place]. Spoke with Pharmacist on duty. Rx for KDur 10 meq PO daily given verbally #90 with no refills. Melida Koo APRN.JASPREET [facility] Work Phone: 1(877) 239-572201-27-2025 Miscellaneous Notes* Telephone Encounter - Melida Koo APRN.CNP - 07/31/2024 11:54 AM EST Pt called to request refill for KDur as she has run out of prescription. She states that she is currently in [place] and will be in [place] until October. [facility] called in [place], [place]. Spoke with Pharmacist on duty. Rx for KDur 10 meq PO daily given verbally #90 with no refills. Melida Koo APRN.CNP documented in this encounterAvita Health System01-03-2025 NoteHNO ID: [id number] Author: SIGIFREDO RIVERA LPN Service: ? Author [...] membrane assessed by LIP pre and post procedureSelect [facility] [place]01-03-2025 NoteHNO ID: [id number] Author: DEYSI COLLAZO APRN.CNP Service: ? Author Type: Nurse Practitioner Type: Progress Notes Filed: 07/07/2024 12:41 Note Text: This is a 78 year old female who presents today with: Patient presents with: Establish Care HISTORY OF PRESENT ILLNESS: Berta Sanches is a 78 year old female. Patient presents with: Establish Care Pt presents today to [facility]. HTN: Patient is compliant with [...] regurgitation Pacemaker 10/21/[address] SELAM BARTLETT [id number] pulse generator, his bundle lead, right atrial lead Peripheral arterial disease (HCC) Rheumatic fever Steatosis, liver 03/26/2014 fatty liver on US. 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 Lua PACEMAKER 10/2019 PART. HYSTERECTOMY W/WO RMVL OVARIES/TUBES 1974 h/o cervical cancer ovaries remain PAST SURGICAL HISTORY OF 1996 Aortic valve repair, Dr. Apodaca PAST SURGICAL HISTORY OF 2001 [address] Beltrán, [facility] PAST SURGICAL HISTORY OF 2015 clipping and [...] Type 2 DM - (more content not included)...[facility] [place]10-04-2024 Instructions* Patient Instructions* Albin Gu APRN.CNP - 04/07/2024 9:18 AM EDT Continue current [...] or concern, you can call me at [phone]. documented in this encounterAvita Health System10-04-2024 History of Present illness Narrative* Albin Gu APRN.CNP - 04/07/2024 9:00 AM EDT Images from the original note were not included. [facility] OUTPATIENT VISIT DATE April [...] The following changes were made at that time:decrease lasix to 40 mg once a day [...] months. The last admission was from 11/08 to11/11 for management of heart failure. She was [...] a boat and take it out on [place] to fish. IMPRESSION: NYHA Functional Class: II [...] did just take her morning medications prior toher appt. Reviewed low sodium diet and fluid [...] morning meds 3. SSS (sick sinus syndrome) ([facility]) - ICD9: 427.81, ICD10: I49.5 -s/p PPM [...] bilateral interstitial markings, moderate cardiomegaly Atrial fibrillation ([facility]) Pedro aneurysm of anterior communicating artery Dr. Aaron [facility] Bilateral carotid artery stenosis 11/26/2016 05/27/16 moderate 50-69% stenosis right and left Bilateral pneumonia 07/20/2015 Cancer of cervix (HCC) Cervical cancer ([facility]) 1973 Chest pain 06/01/2015 negative work up with nuclar stress CHF (congestive heart failure) ([facility]) Cholesteatoma of right ear surgical removal Chronic mastoiditis of left side Chronic renal failure, stage 3b ([facility]) 04/15/2022 Diabetes ([facility]) Diabetes ([facility]) GERD (gastroesophageal reflux disease) H/O: GI bleed High blood pressure Hypercholesterolemia Mastoiditis of right side s/p mastoidectomy, complete opacitificationright tympanic cavity and mastoid cells on CT 06/01/16 Mitral valve regurgitation Pacemaker 10/21/[address] SELAM BARTLETT [id number] pulse generator, his bundle lead, right atrial lead Peripheral arterial disease (HCC) Rheumatic fever Steatosis, liver 03/26/2014 fatty liver on US. 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 Lua PACEMAKER 10/2019 PART. HYSTERECTOMY W/WO RMVL OVARIES/TUBES 1973 h/o cervical cancer ovaries remain PAST SURGICAL HISTORY OF 1996 Aortic valve repair, Dr. Apodaca PAST SURGICAL HISTORY OF 2001 [address] Beltrán, [facility] PAST SURGICAL HISTORY OF 2015 clipping and [...] Sweating, Frequent Urination, FrequentThirst PHYSICAL EXAMINATION: BP (!) 142/47 Pulse 91 [...] * Heart Rate Histograms reviewed AP 45%, HIDE BUYER 10.4% Title: Tachycardia: AF * Stored EGMs are consistent with or suggestive of Atrial Fibrillation * AT/AF [place]: 38.7% * Total number of events: 4,598 [...] Discussed red flags and when to call MD/BACK TENDER CYLINDER or [facility] ED. Medications reconciled at end of visit: yes I spent 30 minutes in this visit, with more than 50% of the time devoted to patient counseling. SIGNATURE: Albin Gu APRN.JASPREET PATIENT NAME: Berta Sanches DATE: April 07, 2024 TIME: 904 documented in this encounterAvita Health System10-04-2024 NoteHNO ID: [id number] Author: ALBIN GU APRN.JASPREET Service: ? Author Type: Nurse Practitioner Type: Progress Notes Filed: 04/07/2024 09:57 Note Text: [facility] OUTPATIENT VISIT DATE April [...] boat and take it out on [address] to fish. IMPRESSION: NYHA Functional Class: II [...] left Bilateral pneumonia 07/20/ (more content not included)...[facility] 02-21-2024 Telephone encounter Note* Telephone Encounter - Melida Koo APRN.CNP - 02/21/2024 12:08 PM EDT Called and spoke with patient regarding NTpBNP. Discussed that level has decreased with increase inher diuretics for a short period of time for increased symptoms. Discussed that we were looking fordecrease from result drawn 2 weeks ago during [...] of plan of care. Melida Koo APRN.CNP [facility] Work Phone: 1(360) 779-838008-19-2024 Miscellaneous Notes* Telephone Encounter - Melida Koo APRN.CNP - 02/21/2024 12:08 PM EDT Called and spoke with patient regarding NTpBNP. Discussed that level has decreased with increase inher diuretics for a short period of time for increased symptoms. Discussed that we were looking fordecrease from result drawn 2 weeks ago during [...] of plan of care. Melida Koo APRN.CNP documented in this encounterAvita Health System08-05-2024 Telephone encounter Note * Telephone Encounter - Ying Fuentes LPN - 02/07/2024 12:55 PM EDT Spoke to and informed her of Maribell's [...] to Maribell as well. Ying Fuentes LPN [facility]08-05-2024 Miscellaneous Notes* Telephone Encounter - Ying Fuentes LPN - 02/07/2024 12:55 PM EDT Spoke to and informed her of Maribell's [...] to Maribell as well. Ying Fuentes LPN * Telephone Encounter - Maribell King APRN.CNP - 02/07/2024 12:47 PM EDT Patient should double Lasix to 40 mg BID for 3 days, then recheck BMP that has been ordered per PCP. Please ask patient to monitor daily weights. Maribell King APRN.CNP * Telephone Encounter - Ying Fuentes LPN - 02/04/2024 2:13 PM EDT I spoke to and informed them of Maribell's response to lab results and recommendations. Patient voiced understanding. Patient states BNP is elevated from 2 months ago. Patient asking if she should make any changes. Patient c/o weight gain and SOB with activity. Ying Fuentes LPN * Telephone Encounter - Ying Fuentes LPN - 02/04/2024 2:12 PM EDT ----- Message from Maribell King APRN.CNP sent at 02/04/2024 2:02 PM EDT ----- Please call the patient and report lab results revealed stable kidney function, normal potassium level, normal liver function, cholesterol is under good control, and elevated BNP. Maribell King APRN.CNP documented in this encounterAvita Health System08-05-2024 Telephone encounter Note * Telephone Encounter - Maribell King APRN.CNP - 02/07/2024 12:47 PM EDT Patient should double Lasix to 40 mg BID for 3 days, then recheck BMP that has been ordered per PCP. Please ask patient to monitor daily weights. Maribell King APRN.CNP [facility]08-05-2024 Telephone encounter Note* Telephone Encounter - Melida Koo APRN.CNP - 02/07/2024 8:27 AM EDT Pt called and left message on voicemail stating that she was feeling much better since following instructions that Albin Aurin had given her. She reported that SOB and edema was improved. She has concerns about NTpBNP and when she should have that rechecked. Called patient and she did not answer. Message left for call back. Melida Koo APRN.CNP [facility] Work Phone: 1(410) 294-733108-05-2024 Miscellaneous Notes* Telephone Encounter - Melida Koo APRN.CNP - 02/07/2024 8:27 AM EDT Pt called and left message on voicemail stating that she was feeling much better since following instructions that Albin Aurin had given her. She reported that SOB and edema was improved. She has concerns about NTpBNP and when she should have that rechecked. Called patient and she did not answer. Message left for call back. Melida Koo APRN.JASPREET documented in this encounterAvita Health System08-02-2024 Telephone encounter Note * Telephone Encounter - Ying Fuentes LPN - 02/04/2024 2:13 PM EDT I spoke to and informed them of Maribell's response to lab results and recommendations. Patient voiced understanding. Patient states BNP is elevated from 2 months ago. Patient asking if she should make any changes. Patient c/o weight gain and SOB with activity. Ying Fuentes LPN [facility]08-02-2024 Telephone encounter Note* Telephone Encounter - Ying Fuentes LPN - 02/04/2024 2:12 PM EDT ----- Message from Maribell King APRN.CNP sent at 02/04/2024 2:02 PM EDT ----- Please call the patient and report lab results revealed stable kidney function, normal potassium level, normal liver function, cholesterol is under good control, and elevated BNP. Maribell King APRN.CNP [facility]08-02-2024 Telephone encounter Note* Telephone Encounter - Albin Gu APRN.CNP - 02/04/2024 11:32 AM EDT Returned patient phone call regarding increase in weight and elevated NT BNP. Weight is 143 lbs. She has been taking total of 60 mg lasix for 4 days. Labs were recently ordered by cardiology. Pt doeshave historically elevated NT BNP however, most recent [...] on Wednesday should she need. Plan of carereviewed with patient. All questions answered at this time. Albin Gu APRN.CNP [facility]08-02-2024 Miscellaneous Notes* Telephone Encounter - Albin Gu APRN.CNP - 02/04/2024 11:32 AM EDT Returned patient phone call regarding increase in weight and elevated NT BNP. Weight is 143 lbs. She has been taking total of 60 mg lasix for 4 days. Labs were recently ordered by cardiology. Pt doeshave historically elevated NT BNP however, most recent [...] on Wednesday should she need. Plan of carereviewed with patient. All questions answered at this time. Albin Gu APRN.CNP documented in this encounterAvita Health System07-15-2024 Instructions* Patient Instructions* Carla Burdick MD - 01/17/2024 10:08 AM EDT We will repeat fasting blood work documented in this encounterAvita Health System07-15-2024 History of Present illness Narrative* Carla Burdick MD - 01/17/2024 9:20 AM EDT Images from the original note were not included. [facility] SECTION OF REGIONAL CARDIOLOGY Cardiology ([facility]) [address] [facility] [id number] OUTPATIENT VISIT DATE 01/17/2024 PRIMARY CARE PHYSICIAN: Doreen Le [address] [place] [address] HISTORY OF PRESENT ILLNESS: Ms. Sanches is [...] has been much more diligent with following alow-sodium diet. She has been compliant with her [...] regurgitation Pacemaker 10/21/[address] SELAM BARTLETT [id number] pulse generator, his bundle lead, right atrial lead Peripheral arterial disease (HCC) Rheumatic fever Steatosis, liver 03/26/2014 fatty liver on US. 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 Lua PACEMAKER 10/2019 PART. HYSTERECTOMY W/WO RMVL OVARIES/TUBES 1973 h/o cervical cancer ovaries remain PAST SURGICAL HISTORY OF 1996 Aortic valve repair, Dr. Apodaca PAST SURGICAL HISTORY OF 2001 [address] Beltrán, [facility] PAST SURGICAL HISTORY OF 2016 clipping and [...] ICD10: Z95.0 12. PAD (peripheral artery disease) ([facility]) - ICD9: 443.9, ICD10: I73.9 Carla Burdick MD documented in this encounterAvita Health System07-15-2024 NoteHNO ID: [id number] Author: CARLA UBRDICK MD Service: ? Author Type: Physician Type: Progress Notes Filed: 01/17/2024 10:36 Note Text: [facility] SE[facility] REGIONAL CARDIOLOGY Cardiology ([facility]) [address] [id number] OUTPATIENT VISIT DATE 01/17/2024 PRIMARY CARE PHYSICIAN: Doreen Le [address] [place] [address] HISTORY OF PRESENT ILLNESS: Ms. Sanches is [...] regurgitation Pacemaker 10/21/[address] SELAM BARTLETT [id number] pulse generator, his bundle lead, right atrial lead Peripheral arterial disease (HCC) Rheumatic fever Steatosis, liver 03/26/2014 fatty liver on US. No gallstones Tachy-pavan syndrome (HCC) PAST SURGICAL HISTORY Procedure Laterality Date ABLATION 2018 for afib ANESTHESIA EXTERNAL MIDDLE AND INNER EAR W/BX NOS 2002, 2003,04/30/15 CARDIOVERSION 2018 EGD 02/28/2021 ESOPHAGOGASTRODUODENOSCOPY TRANSORAL DIAGNOSTIC 02/28/2021 LAP COLECTOMY, SIGMOID W/AREA DIRECTOR 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 Lua PACEMAKER 10/2019 PART. HYSTERECTOMY W/WO RMVL OVARIES/TUBES 1974 h/o cervical cancer ovaries remain PAST SURGICAL HISTORY OF 1996 Aortic valve repair, Dr. Apodaca PAST SURGICAL HISTORY OF 2001 [address] Beltrán, [facility] PAST SURGICAL HISTORY OF 2015 clipping and [...] mouth once daily. pota (more content not included)...[facility]06-04-2024 Instructions* Patient Instructions* Deysi Collazo APRN.CNP - 12/07/2023 12:13 PM EDT Continue the same medications. If no better or worsening, start the antibiotic. Start mucinex or coricidin. Let us know if no improvement/worsening. documented in this encounterAvita Health System06-04-2024 History of Present illness Narrative* Deysi Collazo APRN.JASPREET - 12/07/2023 11:58 AM EDT This is a 78 year old female [...] regurgitation Pacemaker 10/21/[address] SELAM BARTLETT W1DR01 pulse generator, his bundle lead, right atrial lead Peripheral arterial disease (HCC) Rheumatic fever Steatosis, liver 03/26/2014 fatty liver on US. 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 Lua PACEMAKER 10/2019 PART. HYSTERECTOMY W/WO RMVL OVARIES/TUBES 1974 h/o cervical cancer ovaries remain PAST SURGICAL HISTORY OF 1996 Aortic valve repair, Dr. Apodaca PAST SURGICAL HISTORY OF 2001 [address] Beltrán, [facility] PAST SURGICAL HISTORY OF 2016 clipping and [...] or as needed for worsening/no improvement. Deysi Collazo APRN.JASPREET documented in this encounterAvita Health System05-24-2024 History of Present illness Narrative* Valentine Meneses RN - 11/26/2023 12:22 PM EDT ACM CECY RN Patient identified by name [...] Occurrences Date Last Occurrence Hospital Admission 1 -7 to 11-12-23 Hospital Observation 0 na ED 2 11-09-23 SNF / Acute Rehab / LTAC 0 na ED DIAGNOSES/REASON(S) FOR ED USE: asc on chronic CHF, sent by Cardiology to ED for planned admit OTHER FINDINGS/SUMMARY: unsure why Card didn't just directly admit pt. Patient Attributed To: QAE Payer: Pradeep CORDOBA Action Taken: Encounter routed to provider Contact made with patient: No, Chart review only. Signature: Valentine Meneses RN documented in this encounterAvita Health System05-23-2024 Instructions* Patient Instructions* Albin Gu APRN.CNP - 11/25/2023 10:56 AM EDT Continue current medications as prescribed. START taking 40 mg lasix ( 2 tablets instead of 3 tablets). RESTART spironolactone at 12.5 mg (1/2 tablet). Labs (BMP) to be drawn in 1 week. You may take additional 20 mg lasix in the afternoon for weight gain 3 lb in 1-2 days. Monitor blood pressure 3-4hours after morning medication. Call office with readings [...] you have any question or concern, you cancall me at [phone]. documented in this encounterAvita Health System05-23-2024 History of Present illness Narrative* Albin Gu APRN.CNP - 11/25/2023 10:00 AM EDT Images from the original note were not included. [facility] OUTPATIENT VISIT DATE November [...] months. The last admission was from 11/08 to11/11 for management of heart failure. She was [...] to appt with . Denies shortness of breath,chest pain, fever, chills, dizziness, lightheadedness. Weight at [...] did not like the food. Mentions having significantleg swelling prior to coming to the hospital. [...] the past however, he gives a timeline ofover 5 years ago. [place] 3 [place]. Noticed leg swelling while down in [place]. Went to urgent care while down there [...] to the Heart Failure Clinic to establish care.She appears euvolemic on examination. Reviewed echocardiogram with [...] however, she was 128/76 mmHg on Wednesday withher PCP. Will have her monitor blood pressure [...] regurgitation Pacemaker 10/21/[address] SELAM BARTLETT W1DR01 pulse generator, his bundle lead, right atrial lead Peripheral arterial disease (HCC) Rheumatic fever Steatosis, liver 03/26/2014 fatty liver on US. 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 Lua PACEMAKER 10/2019 PART. HYSTERECTOMY W/WO RMVL OVARIES/TUBES 1973 h/o cervical cancer ovaries remain PAST SURGICAL HISTORY OF 1996 Aortic valve repair, Dr. Apodaca PAST SURGICAL HISTORY OF 2001 [address] Beltrán, [facility] PAST SURGICAL HISTORY OF 2015 clipping and [...] mL INTRAVENOUS DIRECTED PRN Lisset Burdick MD REVIEW OF SYSTEMS: GENERAL: Positive for:Weight gain (reviewed weights over past 12 months and weight has been 145-147lbs) HEENT: Positive for:Glasses and Hearing Impairment NECK: [...] Excessive Sweating, Frequent Urination, FrequentThirst PHYSICAL EXAMINATION: 11/25/23 1000 11/25/23 1042 BP: [...] contact information for HF Clinic. Discussed etiology ofheart failure, importance of daily weights, fluid and fluid management, signs and symptoms of heartfailure exacerbation, and activity guidelines. Reviewed 2g low [...] devoted to patient counseling. SIGNATURE: Albin Gu APRN.MANAGER REGULATORY PATIENT NAME: Berta Sanches DATE: November 25, 2023 TIME: 1000 documented in this encounterAvita Health System05-21-2024 History of Present illness Narrative* Chula Morales RN - 11/23/2023 2:39 PM EDT Lab from 11/19/[address] Mujica. Greatly improved with oral iron. Pt notified. No need for OVin Hem/Onc and to follow up with PCP. Pt verbalized understanding. Chula Morales RN documented in this encounterAvita Health System05-20-2024 Instructions* Patient Instructions* Deysi Collazo APRN.CNP - 11/22/2023 9:53 AM EDT Continue the same medication. Repeat lab on Wednesday after you see Dr. Rodriguez. Moist heat/ice to the back. Massage to the area. Let us know if any problems/concerns. documented in this encounterAvita Health System05-20-2024 History of Present illness Narrative* Deysi Collazo APRN.CNP - 11/22/2023 9:08 AM EDT This is a 78 year old female who presents today with: Patient presents with: Hospital Follow Up: [facility] follow up dc'd 11/12/23 dx: CHF HISTORY OF PRESENT ILLNESS: Berta Sanches is a 78 year old female. Patient presents with: Hospital Follow Up: [facility] follow up dc'd 11/12/23 dx: CHF Pt presents today for hospital follow-up. Discharged on 11/11 from [facility] w/ dx of CHF. Refers that she went into the hospital with swelling and SOB. Diuresed in the hospital. Refers when she got home on her scale, her weight was 141. Refers that she has been steadily increasing. Today she is 150# here (5/6 - 161#). Over the weekend, she increased [...] regurgitation Pacemaker 10/21/[address] SELAM BARTLETT [id number] pulse generator, his bundle lead, right atrial lead Peripheral arterial disease (HCC) Rheumatic fever Steatosis, liver 03/26/2014 fatty liver on US. 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 Lua PACEMAKER 10/2019 PART. HYSTERECTOMY W/WO RMVL OVARIES/TUBES 1974 h/o cervical cancer ovaries remain PAST SURGICAL HISTORY OF 1996 Aortic valve repair, Dr. Apodaca PAST SURGICAL HISTORY OF 2001 [address] Beltrán, [facility] PAST SURGICAL HISTORY OF 2015 clipping and [...] or as needed for worsening/no improvement. Deysi Collazo APRN.MANAGER REGULATORY documented in this encounterAvita [facility] System05-17-2024 Telephone encounter Note * Telephone Encounter - Albin Gu APRN.CNP - 11/19/2023 8:37 AM EDT Patient called office for instructions on diuretics as her weight is up 5 lbs. She states she was instructed to call the office with questions. This EDGE STRIPPER has not seen this patient in clinic but is scheduled to see her in the following week. The patient states she has not been able to reach her flosser. She has been taking additional 20 mg lasix in the afternoon for 2 days with no improvementin weight. She suggested taking an additional 40 [...] care. Patient agrees and understands. Albin Gu APRN.CNP [facility] Work Phone: [phone] Miscellaneous Notes* Telephone Encounter - Albin Gu APRN.CNP - 11/19/2023 8:37 AM EDT Patient called office for instructions on diuretics as her weight is up 5 lbs. She states she was instructed to call the office with questions. This EDGE STRIPPER has not seen this patient in clinic but is scheduled to see her in the following week. The patient states she has not been able to reach her flosser. She has been taking additional 20 mg lasix in the afternoon for 2 days with no improvementin weight. She suggested taking an additional 40 [...] care. Patient agrees and understands. Albin Gu APRN.MANAGER REGULATORY documented in this encounterAvita Health System05-15-2024 Telephone encounter Note * Telephone Encounter - Gwen Valentine RN - 11/17/2023 1:07 PM EDT HF Follow-up Phone Call: Red Flags: Patient [...] except her energy level is low. Her breathingis fine, she is weighing herself and has not gained. She is watching her sodium intake. She received and is taking her medications. She has appts for blood work and the CHF clinic set up. No c/o, no problems, no questions @ this time. Sodium 132 11/12/2023 Potassium 3.7 11/12/2023 BUN 45 11/12/2023 Creatinine 1.65 11/12/2023 No results found for this basename: BNP [facility]05-15-[facility]24 Miscellaneous Notes* Telephone Encounter - Gwen Valentine RN - 11/17/2023 1:07 PM EDT HF Follow-up Phone Call: Red Flags: Patient [...] except her energy level is low. Her breathingis fine, she is weighing herself and has [...] for this basename: BNP documented in this encounterAvita Health System05-14-2024 Telephone encounter Note * Telephone Encounter - Mona Noonan - 11/16/2023 8:53 AM EDT Called patient and scheduled as Directed Mona Noonan [facility]05-14-2024 Miscellaneous Notes* Telephone Encounter - Mona Noonan - 11/16/2023 8:53 AM EDT Called patient and scheduled as Directed Mona Noonan * Telephone Encounter - Ralph Mujica DO - 11/15/2023 9:31 AM EDT Hemoglobin okay. Not urgent. Next new appointment time with either me or Dr. Rodriguez. * Telephone Encounter - Rachele Bee LPN - 11/15/2023 9:26 AM EDT Dx: 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 (ICD-10-CM)]; Iron malabsorption [K90.9 (ICD-10-CM)] * Telephone Encounter - Doreen Le PA-C - 11/15/2023 8:31 AM EDT Hospitalist is recommending outpatient iron transfusion. Please schedule. Telephone on 10/31/23 CONSULT TO HEMATOLOGY Edmund Alex PA-C documented in this encounterAvita Health System05-14-2024 History of Present illness Narrative* Geri Montes RN - 11/16/2023 8:15 AM EDT ACM CECY RN Patient identified by name and date of . Reason for review or outreach: Chart Review Cecy Priority Emergency Department Utilization ED DIAGNOSES/REASON(S) FOR ED USE: OTHER FINDINGS/SUMMARY:E.D. visit on 11-09-23 transitioned to [facility] Admit Patient Attributed To: E Payer: Pradeep CORDOBA Action Taken: No action needed Contact made with patient: No, Chart review only. Signature: Geri Montes RN documented in this encounterAvita Health System05-13-2024 Telephone encounter Note * Telephone Encounter - Nara Malone RN - 11/15/2023 10:32 AM EDT Transitional Care Management (TCM) [facility] Monitoring Program Provider Action / FYI: na SUMMARY: Outreach type: INITIAL OUTREACH Discharge Network Status: In-Network Discharge Source of Patient: [facility] TCM Discharge Report Patient discharged from [facility] on 11.09.23. Admitted for Acute on chronic left systolic heart failure . Contact made with patient: Yes, for Initial Outreach Hi my name is Nara Malone RN and I am calling from the [facility] on behalf of your PrimaryCare Provider, Doreen Le PA-C. I understand you [...] the Appointment Center phone number to speak witha flight test engineer who can assist you with that appointment. [...] Malone RN November 15, 2023 10:35 AM [facility]05-13-2024 Miscellaneous Notes* Telephone Encounter - Nara Malone RN - 11/15/2023 10:32 AM EDT Transitional Care Management (TCM) [facility] Monitoring [facility] Provider Action / FYI: na SUMMARY: Outreach type: INITIAL OUTREACH Discharge Network Status: In-Network Discharge Source of Patient: [facility] TCM Discharge Report Patient discharged from [facility] on 11.09.23. Admitted for Acute on chronic left systolic heart failure . Contact made with patient: Yes, for Initial Outreach Hi my name is Nara Malone RN and I am calling from the [facility] on behalf of your PrimaryCare Provider, Doreen Le PA-C. I understand you [...] the Appointment Center phone number to speak witha flight test engineer who can assist you with that appointment. [...] 15, 2023 10:35 AM documented in this encounterAvita Health System05-13-2024 Telephone encounter Note * Telephone Encounter - Ralph Mujica DO - 11/15/2023 9:31 AM EDT Hemoglobin okay. Not urgent. Next new appointment time with either me or Dr. Rodriguez. [facility] Telephone encounter Note* Telephone Encounter - Rachele Bee LPN - 11/15/2023 9:26 AM EDT Dx: 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 (ICD-10-CM)]; Iron malabsorption [K90.9 (ICD-10-CM)] [facility]05-13-[facility] Telephone encounter Note* Telephone Encounter - Doreen Le PA-C - 11/15/2023 8:31 AM EDT Hospitalist is recommending outpatient iron transfusion. Please schedule. Telephone on 10/31/23 CONSULT TO HEMATOLOGY Edmund Alex PA-C [facility]05-10-[facility] Telephone encounter Note* Telephone Encounter - Vandana Baird PSS - 11/12/2023 3:45 PM EDT [facility] Care at home referral was received for Heart Failure services. Unfortunately the referral is declined at this time due to geographic location. Thank you for the referral. KAITLYNN Tuttle [facility]05-10-2024 Miscellaneous Notes* Telephone Encounter - Vandana Baird PSS - 11/12/2023 3:45 PM EDT [facility] at home referral was received for Heart Failure services. Unfortunately the referral is declined at this time due to geographic location. Thank you for the referral. KAITLYNN Tuttle * Telephone Encounter - Vandana Baird PSS - 11/12/2023 3:44 PM EDT Transitional Care Program - Intake Template - for interface Date Referral Received: 11/12/2023 Referral Source: [facility] TC Program: HF Consult UD Consult scheduled with: NA Date of : 1945 Age: [age] year old PCP: Doreen Le PA-C Visit address from [facility]: [address] [place] [address] Name of Physician who gave the order: Dr. Rita Rey Other services ordered: None Primary Insurance Company: Payor: [employer] MEDIC[place] / [place] / Product Type: PPO / Primary Insurance ID Number: [id number] documented in this encounterAvita Health System05-10-2024 Telephone encounter Note * Telephone Encounter - Vandana Baird PSS - 11/12/2023 3:44 PM EDT Transitional Care Program - Intake Template - for interface Date Referral Received: 11/12/2023 Referral Source: [facility] TC Program: HF Consult UD Consult scheduled with: NA Date of : 1945 Age: [age] year old PCP: Doreen Le PA-C Visit address from [facility]: [address] [place] [id number] Name of Physician who gave the order: Dr. Rita Rey Other services ordered: None Primary Insurance Company: Payor: [employer] MEDICARE / Plan: AETNA MEDICARE PPO / Product Type: PPO / Primary Insurance ID Number: [id number] [facility]05-10-[facility] Evaluation note* Diagnosis Stage 3 chronic kidney disease, unspecified whether stage 3a or 3b CKD (HCC)- Primary documented in this encounter [facility] History of Present illness Narrative* Bere Boykin APRN.MANAGER REGULATORY - 11/08/2023 4:30 PM EDT Images from the original note were not included. [facility] [place] Martha Meléndez Department of Cardiovascular Medicine SECTION OF CLINICAL CARDIOLOGY OUTPATIENT VISIT DATE November 08, 2023 OUTPATIENT VISIT TYPE ESTABLISHED PRIMARY CARE PHYSICIAN: Doreen Le PA-C [address] [place] [address] CHIEF COMPLAINT: Follow Up HISTORY OF PRESENT [...] regurgitation Pacemaker 10/21/[address] SELAM BARTLETT [id number] pulse generator, his bundle lead, right atrial lead Peripheral arterial disease (HCC) Rheumatic fever Steatosis, liver 03/26/2014 fatty liver on US. 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 Lua PACEMAKER 10/2019 PART. HYSTERECTOMY W/WO RMVL OVARIES/TUBES 1974 h/o cervical cancer ovaries remain PAST SURGICAL HISTORY OF 1996 Aortic valve repair, Dr. Apodaca PAST SURGICAL HISTORY OF 2001 [address] Beltrán, [facility] PAST SURGICAL HISTORY OF 2016 clipping and [...] - May be candidate for DCCV at [facility] once euvolemic 3. Acute on chronic [...] hemodynamic stability, he spouse drove her to [facility] ER. I called report to Dr. Tuttle in theER. CONTACT INFORMATION: Bere Boykin APRN.JASPREET Cardiology [address] [facility] [address] Dept: [phone] I have reviewed the patient's medications and allergies, past medical, surgical, social and family history, updating these as appropriate. See Histories section of the [facility] for a display of this information. documented in this encounterAvita Health System05-02-2024 Instructions* Patient Instructions* Doreen Le PA-C - 11/04/2023 8:46 AM EDT See sheet on piriformis stretching documented in this encounterAvita Health System05-02-2024 History of Present illness Narrative* Doreen Le [...] Lymph 1.00 - 4.00 k/uL 2.82 2.73 [place]% % 13.0 10.2 Abs [place] <0.87 k/uL 1.10 (H) 0.79 Eosin% % [...] regurgitation Pacemaker 10/21/[address] SELAM BARTLETT [id number] pulse generator, his bundle lead, right atrial lead Peripheral arterial disease (HCC) Rheumatic fever Steatosis, liver 03/26/2014 fatty liver on US. 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 Lua PACEMAKER 10/2019 PART. HYSTERECTOMY W/WO RMVL OVARIES/TUBES 1974 h/o cervical cancer ovaries remain PAST SURGICAL HISTORY OF 1996 Aortic valve repair, Dr. Apodaca PAST SURGICAL HISTORY OF 2001 [address] Beltrán, [facility] PAST SURGICAL HISTORY OF 2015 clipping and [...] Colon Skin Cancer Pad (Peripheral Artery Disease) ([facility]) Pedro Aneurysm of Anterior Communicating Artery Stage 3 Chronic Renal Impairment Associated With Type 2 Diabetes Mellitus ([facility]) History of Pulmonary Embolism Ascending Aorta Dilatation ([facility]) Chronic Bilateral Pleural Effusions Colovesical Fistula Right Renal Mass Diverticulitis Large Intestine W/O Perforation Or Abscess W/O Bleeding Renal Cell Carcinoma, Right ([facility]) Iron Deficiency Anemia Hypomagnesemia Gastrointestinal Hemorrhage Associated With Acute Gastritis Esophageal Stenosis Dilated Cardiomyopathy ([facility]) Chronic Combined Systolic and Diastolic Chf (Congestive Heart Failure) ([facility]) Sss (Sick Sinus Syndrome) ([facility]) Duodenal Ulcer Type 2 Diabetes Mellitus With Diabetic Peripheral Angiopathy Without Gangrene, Without Long-Term Current Use of Insulin (Hcc) Longstanding Persistent Atrial Fibrillation ([facility]) S/P Placement of Cardiac Pacemaker Ckd (Chronic Kidney Disease) Platelet Inhibition Due to Plavix Diverticulosis Lung Nodule, Solitary Red Blood Cell Antibody Positive Iron Deficiency Anemia Secondary to Inadequate Dietary Iron Intake Iron Malabsorption Chronic Renal Failure, Stage 3b ([facility]) Spondylolisthesis At L4-L5 Level Occlusion of Superior Mesenteric Artery ([facility]) Current Outpatient Medications Medication Sig Dispense [...] answered. Doreen Le PA-C documented in this encounterAvita Health System05-01-2024 Telephone encounter Note * Telephone Encounter - Doreen Le PA-C - 11/03/2023 10:36 AM EDT She needs to see person scheduled next week. She may need additional appointment with the pulmonology specialist in addition but haven't heard from Dr. Joan garcia. Thanks, Edmund Le PA-C [facility]05-01-2024 Miscellaneous Notes* Telephone Encounter - Doreen Le PA-C - 11/03/2023 10:36 AM EDT She needs to see person scheduled next week. She may need additional appointment with the pulmonology specialist in addition but haven't heard from Dr. Joan garcia. Thanks, Edmund Le PA-C * Telephone Encounter - Uma Parson MA - 11/02/2023 10:59 AM EDT After review pt is currently scheduled with a Endoscope Technician in [place] on 11/08/23. This was setup on10/25/23. Her [...] is willing for invasive procedures if necessary. ThanksEdmund PA-C documented in this encounterAvita Health System04-30-2024 Telephone encounter Note * Telephone Encounter - Sandra Thacker LPN - 11/02/2023 5:13 PM EDT Patient notified. Verbalized understanding. Is scheduled for for follow up. [facility]-30[facility] Miscellaneous Notes* Telephone Encounter - Sandra Thacker LPN - 11/02/2023 5:13 PM EDT Patient notified. Verbalized understanding. Is scheduled for for follow up. * Telephone Encounter - Doreen Le PA-C - 11/02/2023 5:04 PM EDT Please advise from [employer] message: Hi Cassidy You labs show you [...] DIFFERENTIAL IRON AND TIBC BASIC METABOLIC PANEL ThanksEdmund PA-C documented in this encounterAvita Health System04-30-2024 Telephone encounter Note * Telephone Encounter - Doreen Le PA-C - 11/02/2023 5:04 PM EDT Please advise from [employer] message: Gilbert Benjamin You labs show you are significantly dehydrated- [...] DIFFERENTIAL IRON AND TIBC BASIC METABOLIC PANEL ThanksEdmund PA-C [facility]-30-[facility] Telephone encounter Note* Telephone Encounter - Uma Parson MA - 11/02/2023 10:59 AM EDT After review pt is currently scheduled with a Endoscope Technician in [place] on 11/08/23. This was setup on10/25/23. Her Cardiology appt with Clara is in January. Is she still following with him or seeing someone new? Uma Parson MA [facility]04-30-2024 Telephone encounter Note* Telephone Encounter - Doreen Le PA-C - 11/02/2023 10:54 AM EDT Please see if we can expedite cardiology visit to [facility] r/t SOB, weight gain, lower extremity swelling and recent abnormal echo finding. Patient is willing for invasive procedures if necessary. Thanks, Edmund Le PA-C [facility]04-16-[facility] History of Present illness Narrative* Lars Silva DO - 10/19/2023 4:00 PM EDT Reviewed DVT study with Cassidy. No evidence of DVT. Recommend follow up as scheduled with PCP and cardiology. documented in this encounterAvita Health System04-15-2024 History of Present illness Narrative* Marisol Cook RT(R) - 10/18/2023 2:30 PM EDT Radiology [...] PATIENT PRESENTS WITH AN IMPLANTABLE OR ATTACHED TIP CUTTER: No RADIOLOGY DEPARTMENT: General X-ray: Exam(s) Completed: Chest X-Ray PERIPHERAL IV DATA: Not applicable SIGNED BY: RT Mario(R) October 18, 2023 2:28 PM documented in this encounterAvita Health System04-15-2024 Instructions* Patient Instructions* Doreen Le PA-C - [...] lab in 2 weeks. documented in this encounterAvita Health System04-15-2024 History of Present illness Narrative* Doreen Le PA-C - 10/18/2023 1:00 PM EDT 78 year old female with c/o here for Pedro Aneurysm Neurosurgeon Dr. Dianne Rogers, Susan Mtz MANAGER REGULATORY 12/10/2022 MRA brain W/WO: Satisfactory appearance of [...] aneurysm ([place] [facility]) Sss (sick sinus syndrome) ([facility]) Paroxysmal atrial fibrillation (hcc) S/p placement of cardiac pacemaker (primary encounter diagnosis) Chronic combined systolic and diastolic chf (congestive heart failure) ([facility]) Dilated cardiomyopathy [facility]) Ascending [facility] dil[facility] H/o rheumatic heart disease History of [...] SOB over last several weeks, while in and end of July. Had Covid 19 [...] Lymph 1.00 - 4.00 k/uL 2.82 2.73 [place]% % 13.0 10.2 Abs [place] <0.87 k/uL 1.10 (H) 0.79 Eosin% % [...] recent CT scans which were done in [facility]. Gastroesophageal reflux disease without esophagitis Esophageal stenosis [...] regurgitation Pacemaker 10/21/[address] SELAM BARTLETT [id number] pulse generator, his bundle lead, right atrial lead Peripheral arterial disease (HCC) Rheumatic fever Steatosis, liver 03/26/2014 fatty liver on US. 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 Lua PACEMAKER 10/2019 PART. HYSTERECTOMY W/WO RMVL OVARIES/TUBES 1973 h/o cervical cancer ovaries remain PAST SURGICAL HISTORY OF 1996 Aortic valve repair, Dr. Apodaca PAST SURGICAL HISTORY OF 2001 [address] Beltrán, [facility] PAST SURGICAL HISTORY OF 2015 clipping and [...] Colon Skin Cancer Pad (Peripheral Artery Disease) ([facility]) Pedro Aneurysm of Anterior Communicating Artery Stage 3 Chronic Renal Impairment Associated With Type 2 Diabetes Mellitus ([facility]) History of Pulmonary Embolism Ascending Aorta Dilatation (Hcc) Chronic Bilateral Pleural Effusions Colovesical Fistula Right Renal Mass Diverticulitis Large Intestine W/O Perforation Or Abscess W/O Bleeding Renal Cell Carcinoma, Right (Hcc) Iron Deficiency Anemia Hypomagnesemia Gastrointestinal Hemorrhage Associated With Acute Gastritis Esophageal Stenosis Dilated Cardiomyopathy (Hcc) Chronic Combined Systolic and Diastolic Chf (Congestive Heart Failure) ([facility]) Sss (Sick Sinus Syndrome) ([facility]) Duodenal Ulcer Type 2 Diabetes Mellitus With Diabetic Peripheral Angiopathy Without Gangrene, Without Long-Term Current Use of Insulin (Hcc) Longstanding Persistent Atrial Fibrillation ([facility]) S/P Placement of Cardiac Pacemaker Ckd (Chronic Kidney Disease) Platelet Inhibition Due to Plavix Diverticulosis Lung Nodule, Solitary Red Blood Cell Antibody Positive Iron Deficiency Anemia Secondary to Inadequate Dietary Iron Intake Iron Malabsorption Chronic Renal Failure, Stage 3b (Hcc) Spondylolisthesis At L4-L5 Level Occlusion of Superior Mesenteric Artery ([facility]) Current Outpatient Medications Medication Sig Dispense [...] (primary diagnosis) 2. SSS (sick sinus syndrome) (HCC) - ICD9: 427.81, ICD10: I49.5 3. Paroxysmal atrial fibrillation (HCC) - ICD9: 427.31, ICD10: I48.0 4. S/P placement of cardiac pacemaker - ICD9: V45.01, ICD10: Z95.0 5. 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) - ICD9: 428.42, 428.0, ICD10: I50.426. Dilated cardiomyopathy (HCC) - ICD9: 425.4, ICD10: I42.0 7. Ascending aorta dilatation (HCC) - ICD9: 447.71, ICD10: I77.810 8. History [...] % (FLUSH) INJECTION SYRINGE - INSERT IV (DE,[place]) - IV DISCONTINUE 10. Platelet inhibition due [...] medication Doreen Le PA-C documented in this encounterAvita Health System04-12-2024 Miscellaneous Notes* Telephone Encounter - Mckayla Albert [...] appointment in January 2024. Patient has called [facility] that they told her they are scheduling into April but if seen there she cannot be seen back in [place] location which is her preference. Patient is willing to travel to [facility] if she needs to. Please review and advise. Mckayla Albert LPN documented in this encounterAvita Health System04-11-2024 History of Present illness Narrative* Lars Silva, DO - 10/14/2023 2:57 PM EDT Images from the original note were not included. [facility] [place] DEPARTMENT OF VASCULAR SURGERY OUTPATIENT VISIT DATE [...] thighs. She recently returned home from [place]. She had duplex in [place] which was negative for DVT. PAST MEDICAL [...] regurgitation Pacemaker 10/21/[address] SELAM BARTLETT [id number] pulse generator, his bundle lead, right atrial lead Peripheral arterial disease (HCC) Rheumatic fever Steatosis, liver 03/26/2014 fatty liver on US. 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 Lua PACEMAKER 10/2019 PART. HYSTERECTOMY W/WO RMVL OVARIES/TUBES 1974 h/o cervical cancer ovaries remain PAST SURGICAL HISTORY OF 1996 Aortic valve repair, Dr. Apodaca PAST SURGICAL HISTORY OF 2001 [address] Beltrán, [facility] PAST SURGICAL HISTORY OF 2015 clipping and [...] 2023 TIME: 2:58 PM documented in this encounterAvita Health System01-01-2024 History of Present illness Narrative* Bijan Cole [...] regurgitation Pacemaker 10/21/[address] SELAM BARTLETT [id number] pulse generator, his bundle lead, right [...] interactions). Bijan Cole MD documented in this encounterAvita Health System12-04-2023 Miscellaneous Notes* Telephone Encounter - Sheree Savage Ma - 06/07/2023 4:55 PM EST Patient stopped by office and picked up shoe. Small Squared toe post op shoe Sheree Savage Ma * Telephone Encounter - Sheree Savage Ma - 06/07/2023 1:49 PM EST Called pt and she will stop in office this afternoon to curing pickling packer post op shoe. Sheree Savage Ma * Telephone Encounter - Uma Parson Ma - 06/07/2023 9:43 AM EST See response from pt. Uma Parson Ma documented in this encounterAvita Health System11-28-2023 History of Present illness Narrative* Marisol Cook, RT(R) - 06/01/2023 2:20 PM EST Radiology [...] 01, 2023 2:31 PM documented in this encounterAvita Health System10-27-2023 History of Present illness Narrative* Mckayla Reed RT(Katie) - 04/30/2023 8:00 AM EDT Radiology Service [...] IV DATA: Not applicable SIGNED BY: RT Ronny(Katie) April 30, 2023 1:48 PM documented in this encounterAvita Health System10-09-2023 History of Present illness Narrative* Marisol Cook [...] 12, 2023 10:32 AM documented in this encounterAvita Health System09-11-2023 Miscellaneous Notes* Telephone Encounter - Margoth Bolaños [...] and advise. Agueda Schulte documented in this encounterAvita Health System07-27-2023 Miscellaneous Notes* Telephone Encounter - Bushra Strauss - 01/28/2023 10:43 AM EDT Patient has been contacted and scheduled with Dr. Silav * Telephone Encounter - Sheree Savage Ma - 01/28/2023 9:55 AM EDT Pt viewed [employer] message. Please help pt set up consult. * Telephone Encounter - Doreen Le PA-C - 01/28/2023 6:33 AM EDT Please schedule: Telephone on 01/28/23 CONSULT TO VASCULAR SURGERY Pvd (peripheral vascular disease) with claudication (hcc) (primary encounter diagnosis) See [employer],Inchart regarding PVR resuts Edmund Alex PA-C documented in this encounterAvita Health System07-07-2023 Miscellaneous Notes* Telephone Encounter - Berta Keith [...] follow lung nodules if she is amenable Edmund Alex PA-C documented in this encounterAvita Health System07-06-2023 Instructions* Patient Instructions* Doreen Le PA-C - 01/07/2023 9:20 AM EDT [...] due to heart conditions documented in this encounterAvita Health System07-06-2023 History of Present illness Narrative* Doreen Le PA-C - 01/07/2023 8:40 AM EDT 77 year old female with c/o here for routine follow up. Worst problem currently are legs. Has to get up and walk around. Drinks tonic water with quinine. Pain is excruciating. Severe pain. Not every night. Pedro Aneurysm Neurosurgeon Dr. Dianne Rogers, Susan Mtz MANAGER REGULATORY 12/10/2022 MRA brain W/WO: Satisfactory appearance of [...] - 4.00 k/uL 2.05 2.22 1.81 2.82 [place]% % 12.7 12.3 12.6 13.0 Abs [place] <0.87 k/uL 0.93 (H) 1.06 (H) 0.74 [...] recent CT scans which were done in [facility]. Gastroesophageal reflux disease without esophagitis Esophageal stenosis [...] regurgitation Pacemaker 10/21/[address] SELAM BARTLETT [id number] pulse generator, his bundle lead, right atrial lead Peripheral arterial disease (HCC) Rheumatic fever Steatosis, liver 03/26/2014 fatty liver on US. 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 Lua PACEMAKER 10/2019 PART. HYSTERECTOMY W/WO RMVL OVARIES/TUBES 1974 h/o cervical cancer ovaries remain PAST SURGICAL HISTORY OF 1996 Aortic valve repair, Dr. Apodaca PAST SURGICAL HISTORY OF 2001 [address] Beltrán, [facility] PAST SURGICAL HISTORY OF 2016 clipping and coil for brain aneurysm Social History Tobacco Use Smoking status: Former Packs/day: 0.25 Years: 2.00 Pack years: 0.50 Types: Cigarettes Quit date: 1968 Years since quittin.5 Smokeless tobacco: Never Vaping [...] Heart Failure) (Hcc) Sss (Sick Sinus Syndrome) ([facility]) Duodenal Ulcer Type 2 Diabetes Mellitus [...] TABLET BY MOUTH TWICE A DAY 60 [id number] clopidogrel (PLAVIX) 75 mg tablet Take 1 [...] ARTERIES [facility] 2. 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 artery of both lower extremities with intermittent [...] UR - HGB A1C documented in this encounterAvita Health System06-08-2023 NoteHNO ID: [id number] Author: RT Pranav(R) Service: Radiology Author Type: [...] and Intact, Site disposition Discontinued SIGNED BY: Linda Li RT(R) December 10, 2022 1:06 [facility]04-04-2023 History of Present illness Narrative* M Claudia Le PA-C - 10/06/2022 9:00 AM EDT 77 year old female with c/o here for follow up Pedro Aneurysm Neurosurgeon Dr. Dianne Rogers, Susan Mtz [facility] 12/07/2017 note: f/u MRA recommended 202012/02/2017 MRA [...] (primary encounter diagnosis) Sss (sick sinus syndrome) ([facility]) Chronic combined systolic and diastolic chf (congestive heart failure) ([facility]) Dilated cardiomyopathy (hcc) Ascending aorta dilatation ([facility]) H/o rheumatic heart disease History of prosthetic [...] bases, anteromedial AZUCENA. 5mm pleural density new 4/22/19 echo surveillance prosthetic valve (3yrs): LV severely [...] - 4.00 k/uL 2.05 2.22 1.81 2.82 [place]% % 12.7 12.3 12.6 13.0 Abs [place] <0.87 k/uL 0.93 (H) 1.06 (H) 0.74 [...] recent CT scans which were done in [facility]. Gastroesophageal reflux disease without esophagitis Esophageal stenosis [...] regurgitation Pacemaker 10/21/[address] SELAM BARTLETT [id number] pulse generator, his bundle lead, right atrial lead Peripheral arterial disease (HCC) Rheumatic fever Steatosis, liver 03/26/2014 fatty liver on US. No gallstones Tachy-pavan syndrome (HCC) PAST SURGICAL HISTORY Procedure Laterality Date ABLATION 2018 for afib ANESTHESIA EXTERNAL MIDDLE & INNER EAR W/BX NOS 2002, 2003,04/30/15 CARDIOVERSION 2018 EGD 02/28/2021 ESOPHAGOGASTRODUODENOSCOPY TRANSORAL DIAGNOSTIC 02/28/2021 LAP COLECTOMY, SIGMOID W/AREA DIRECTOR 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 Lua PACEMAKER 10/2019 PART. HYSTERECTOMY W/WO RMVL OVARIES/TUBES 1974 h/o cervical cancer ovaries remain PAST SURGICAL HISTORY OF 1996 Aortic valve repair, Dr. Apodaca PAST SURGICAL HISTORY OF 2001 [address] Beltrán, [facility] PAST SURGICAL HISTORY OF 2015 clipping and [...] Heart Failure) (Hcc) Sss (Sick Sinus Syndrome) ([facility]) Duodenal Ulcer Type 2 Diabetes Mellitus With Diabetic Peripheral Angiopathy Without Gangrene, Without Long-Term Current Use of Insulin (Hcc) Longstanding Persistent Atrial Fibrillation ([facility]) S/P Placement of Cardiac Pacemaker Ckd [...] (primary diagnosis) 2. SSS (sick sinus syndrome) ([facility]) - ICD9: 427.81, ICD10: I49.5 3. Chronic combined systolic and diastolic CHF (congestive heart failure) ([facility]) - ICD9: 428.42, 428.0, ICD10: I50.42 4. Dilated cardiomyopathy ([facility]) - ICD9: 425.4, ICD10: I42.0 5. Ascending aorta dilatation (HCC) - ICD9: 447.71, ICD10: I77.810 6. H/O rheumatic heart disease - ICD9: V12.59, ICD10: Z86.79 7. History of prosthetic aortic valve replacement - ICD9: V43.3, ICD10: Z95.2 8. Paroxysmal atrial fibrillation (HCC) - ICD9: 427.31, ICD10: I48.0 9. Presence [...] schedule CT chest follow up today on [facility] 15. Chronic renal failure, stage 3b (HCC) [...] PANEL Doreen Le PA-C documented in this encounterAvita Health System04-03-2023 History of Present illness Narrative* Erin Lauren [...] 05, 2022 9:36 AM documented in this encounterAvita Health System04-03-2023 Miscellaneous Notes* Result Encounter Note - Brayan Chicas MD - 10/05/2022 8:30 AM EDT Here are the test results.Keep follow up appointment to discuss the results. documented in this encounterAvita Health System03-28-2023 Miscellaneous Notes* Telephone Encounter - Rachele Bee LPN - 09/29/2022 12:06 PM EDT Patient no longer followed by Dr. Lund. Rachele Bee LPN documented in this encounterAvita Health System03-27-2023 Instructions* Patient Instructions* Carla Burdick MD - 09/28/2022 9:30 AM EDT We will repeat an echocardiogram in March Repeat fasting blood work documented in this encounterAvita Health System03-27-2023 History of Present illness Narrative* Carla Burdick MD - 09/28/2022 9:00 AM EDT Images from the original note were not included. [facility] SECTION OF REGIONAL CARDIOLOGY Cardiology ([facility]) [address] [facility] [id number] OUTPATIENT VISIT DATE 09/28/2022 PRIMARY CARE PHYSICIAN: Doreen Le [address] [place] [address] HISTORY OF PRESENT ILLNESS: Ms. Sanches is [...] regurgitation Pacemaker 10/21/[address] SELAM BARTLETT [id number] pulse generator, his bundle lead, right atrial lead Peripheral arterial disease (HCC) Rheumatic fever Steatosis, liver 03/26/2014 fatty liver on US. 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 Lua PACEMAKER 10/2019 PART. HYSTERECTOMY W/WO RMVL OVARIES/TUBES 1973 h/o cervical cancer ovaries remain PAST SURGICAL HISTORY OF 1996 Aortic valve repair, Dr. Apodaca PAST SURGICAL HISTORY OF 2001 [address] Beltrán, [facility] PAST SURGICAL HISTORY OF 2016 clipping and [...] - Exam was compared with the prior [facility] echocardiographic exam performed on 01/12/2022. [...] CBC is pending 4. Ascending aorta dilatation ([facility]) - ICD9: 447.71, ICD10: I77.810 5. Dilated cardiomyopathy ([facility]) - ICD9: 425.4, ICD10: I42.0 Patient maintained on Toprol and losartan. 6. Chronic combined systolic and diastolic CHF (congestive heart failure) ([facility]) - ICD9: 428.42, 428.0, ICD10: I50.42 Patient doing well on current diuretic therapy low-sodium diet 7. SSS (sick sinus syndrome) ([facility]) - ICD9: 427.81, ICD10: I49.5 8. S/P placement of cardiac pacemaker - ICD9: V45.01, ICD10: Z95.0 9. PAD (peripheral artery disease) ([facility]) - ICD9: 443.9, ICD10: I73.9 History of mild bilateral carotid artery disease. No symptoms for TIA or CVA. 10. Hyperlipidemia with target LDL less than 70 - ICD9: 272.4, ICD10: E78.5 Maintained on simvastatin 20 mg daily. Repeat fasting lipid panel - LIPID PANEL BASIC Carla Burdick MD documented in this encounterAvita Health System02-27-2023 Miscellaneous Notes* Telephone Encounter - Margoth Bolaños [...] 10/06/22 Margoth Bolaños MA documented in this encounterAvita Health System01-18-2023 Miscellaneous Notes* Telephone Encounter - Mars Xiao - 07/22/2022 12:54 PM EST Study explained/reviewed with patient. Study related follow-up requirements were discussed. Risks, benefits, alternatives, personnel, and costs of the study explained/reviewed. Patient provided informed consent for review by email. Study related questions were addressed. Provided patient with contact information to call. Mars Xiao documented in this encounterAvita Health System01-16-2023 Miscellaneous Notes* Telephone Encounter - Sheree Savage Ma - 07/20/2022 12:11 PM EST Faxed to [facility] at [phone] * Telephone Encounter - Sheree Savage Ma - 07/08/2022 12:45 PM EST Request sent to radiology * Telephone Encounter - Doreen eL PA-C - 07/08/2022 10:37 AM EST Please have 02/21/[address] IVC PE from [facility] imported and reviewed by radiologist for comparison with 03/19/2022 CT chest w IVCON PE. Not sure if this is the right order or even if needs order. Telephone on 07/08/22 CONSULT TO RADIOLOGY ThanksEdmund PA-C documented in this encounterAvita Health System01-03-2023 History of Present illness Narrative* Doreen Le [...] and diastolic chf (congestive heart failure) (hcc) S/p placement of cardiac pacemaker Dilated cardiomyopathy [...] 1.00 - 4.00 k/uL 2.05 2.22 1.81 [place]% % 12.7 12.3 12.6 Abs [place] <0.87 k/uL 0.93 (H) 1.06 (H) 0.74 [...] artery Neurosurgeon Dr. Dianne Rogers, Susan Mtz MANAGER REGULATORY 12/07/2017 note: f/u MRA 202012/02/2017 MRA brain [...] gangrene, without long-term current use of insulin ([facility]) Current medications: none Taking medication as directed [...] recent CT scans which were done in [facility]. Anemia, blood loss As above CBC improving [...] regurgitation Pacemaker 10/21/[address] SELAM BARTLETT [id number] pulse generator, his bundle lead, right atrial lead Peripheral arterial disease (HCC) Rheumatic fever Steatosis, liver 03/26/2014 fatty liver on US. 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 Lua PACEMAKER 10/2019 PART. HYSTERECTOMY W/WO RMVL OVARIES/TUBES 1974 h/o cervical cancer ovaries remain PAST SURGICAL HISTORY OF 1996 Aortic valve repair, Dr. Apodaca PAST SURGICAL HISTORY OF 2001 [address] Beltrán, [facility] PAST SURGICAL HISTORY OF 2015 clipping and [...] Malabsorption Chronic Renal Failure, Stage 3b (Hcc) Current Outpatient Medications Medication Sig Dispense Refill losartan (COZAAR) 50 mg tablet Take 1 tablet by mouth once daily. 90 tablet 3 metoprolol succinate ER (TOPROL XL) 50 mg 24 hr tablet TAKE 1 TABLET BY MOUTH TWICE A DAY 60 [id number] furosemide (LASIX) 20 mg tablet Take 2 [...] Booster for Pfizer series) due on 05/08/2021 ADVANCE DIRECTIVE DISCUSSION [...] continue medicatioins 3. SSS (sick sinus syndrome) ([facility]) - ICD9: 427.81, ICD10: I49.5 4. Atrial fibrillation, unspecified type ([facility]) - ICD9: 427.31, ICD10: I48.91 5. Presence of Watchman left atrial appendage closure device - ICD9: V45.09, ICD10: Z95.818 Currently in controlled regular rhythm with out signs of CHF Continue current meds. 6. Chronic combined systolic and diastolic CHF (congestive heart failure) ([facility]) - ICD9: 428.42, 428.0, ICD10: I50.42 7. S/P placement of cardiac pacemaker - ICD9: V45.01, ICD10: Z95.0 8. Dilated cardiomyopathy ([facility]) - ICD9: 425.4, ICD10: I42.0 Stable, continue to monitor 9. Ascending aorta dilatation ([facility]) - ICD9: 447.71, ICD10: I77.810 Stable 4.5cm [...] months Doreen Le PA-C documented in this encounterAvita Health System11-21-2022 Miscellaneous Notes* Telephone Encounter - Lizeth Du LPN - 05/25/2022 7:25 AM EST Refill not appropriate at this time, according to records there should be at least 2 refills available. documented in this encounterAvita Health System11-10-2022 History of Present illness Narrative* Sonny Lund MD - 05/14/2022 9:28 AM EST PATIENT NAME: Berta Sanches. CLINIC NO: [id number]. ATTENDING PHYSICIAN: Sonny Lund MD. DATE OF SERVICE:05/14/2022. DIAGNOSIS: Iron deficiency anemia HPI: This is a 76-year-old lady with history of atrial fibrillation, prosthetic aortic valve replacement and congestive heart failure who presented to [facility] recently for decompensated heartfailure and [...] Abs Lymph 1.00 - 4.00 k/uL 1.81 [place]% % 12.6 Abs [place] <0.87 k/uL 0.74 [place]% % 2.2 Abs [...] Cc: Doreen Le PA-C documented in this encounterAvita Health System10-19-2022 Miscellaneous Notes* Telephone Encounter - Lizeth Mcknight [...] 06-08-2022. Lizeth Mcknight LPN documented in this encounterAvita Health System10-06-2022 Miscellaneous Notes* Telephone Encounter - Sheree Savage Ma - 04/09/2022 3:32 PM EDT Please schedule CT chest for 3 months. Thanks, Edmund Le PA-C documented in this encounterAvita Health System10-06-2022 History of Present illness Narrative* Brayan Chicas [...] regurgitation Pacemaker 10/21/[address] SELAM BARTLETT [id number] pulse generator, his bundle lead, right atrial lead Peripheral arterial disease (HCC) Rheumatic fever Steatosis, liver 03/26/2014 fatty liver on US. 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 Lau PACEMAKER 10/2019 PART. HYSTERECTOMY W/WO RMVL OVARIES/TUBES 1974 h/o cervical cancer ovaries remain PAST SURGICAL HISTORY OF 1996 Aortic valve repair, Dr. Apodaca PAST SURGICAL HISTORY OF 2001 [address] Beltrán, [facility] PAST SURGICAL HISTORY OF 2015 clipping and [...] 74 - 99 mg/dL Final Comment: The [place] Diabetes Association (ADA) provides guidance for cutoff [...] Standards of Medical Care in Diabetes 2016, [place] [employer] Association. Diabetes Care. 2016.39(Suppl 1). I [...] extrapolated by contextual derivation. documented in this encounterAvita Health System10-05-2022 Miscellaneous Notes* Telephone Encounter - Daysi Gray [...] infusions. Ralph Mujica DO documented in this encounterAvita Health System10-03-2022 Instructions* Patient Instructions* Doreen Le PA-C - 04/06/2022 11:15 AM EDT [...] cup-Beef (cooked) 2 oz-Beet greens (cooked) 1/2 cup-Clif[place] nuts 5 medium-Cereals 1 oz-Chicken (cooked) 3 [...] cup- Tongue 2 oz- Tuna 1/2 cup- [place] (cooked) 1 oz- Veal (cooked) 1 oz- Watermelon (6"x11/2") 1 slice-Wheat Germ 2 tbsp. Iron supplements are absorbed best when taken between meals, with liquids other than milk, coffee, or tea. Taking them at bedtime often helps reduce the chance of nausea. If you can't tolerate daily, try at least three times a week. documented in this encounterAvita Health System10-03-2022 History of Present illness Narrative* Doreen Le PA-C - 04/06/2022 10:20 AM EDT 76 year old female with c/o here for follow hospital Not doing well Very SOB No stamina, very SOB. Mentioned iron infusions. Hospital discharge follow-up Facility [facility] Admission date 03/19/2022 Discharge date 03/22/2022 Pre-hospitalization details: See note 03/19/2022: CHF, EKG AF, hx GIB melena admitted 02/21-02/24/2022 [place]. 03/19/22 Sent from office to [facility]: VS 145/[id number]- 98% RA Exam + rales. 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 A right 2.5 cm superior pole the rightkidney mass was found concerning for neoplasm that had been noted as long ago as June 2019. On return to [facility], she had presented to the emergency [...] Review Reviewed by Walter Bates MD, Ph.D ([id number]) Protein, Total 6.3 - 8.0 g/dL 6.0 [...] 2 weeks for nephrology order is in recovery agent FOLLOW-UP: GI in 2 days scheduled, lung nodule clinic to be scheduled, urology to be scheduled, and nephrology in 4 to 6 weeks to be scheduled LABS AND PROCEDURES PENDING AT DISCHARGE: No pending results. INCIDENTAL OR ACTIONABLE FINDING (Last Refresh: 03/22/2022 2:27 PM) Test(s): CT CHEST W IVCON PE FOLLOW-UP APPOINTMENTS ALREADY SCHEDULED WITH A [facility] PROVIDER: Future Appointments Date Time Provider Department Center 03/30/2022 8:40 AM Carla Burdick MD [facility] Nancy Marie 04/14/2022 10:00 AM Albin Gu APRN.MANAGER REGULATORY [facility] ALLERGIES ALLERGIES Allergen Reactions Protamine Anaphylaxis [...] regurgitation Pacemaker 10/21/[address] SELAM BARTLETT [id number] pulse generator, his bundle lead, right atrial lead Peripheral arterial disease (HCC) Rheumatic fever Steatosis, liver 03/26/2014 fatty liver on US. 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 Lua PACEMAKER 10/2019 PART. HYSTERECTOMY W/WO RMVL OVARIES/TUBES 1974 h/o cervical cancer ovaries remain PAST SURGICAL HISTORY OF 1996 Aortic valve repair, Dr. Apodaca PAST SURGICAL HISTORY OF 2001 [address] 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 Chronic Renal Impairment Associated With Type 2 Diabetes Mellitus ([facility]) History of Pulmonary Embolism Ascending Aorta Dilatation ([facility]) Chronic Bilateral Pleural Effusions Colovesical Fistula Right Renal Mass Diverticulitis Large Intestine W/O Perforation Or Abscess W/O Bleeding Renal Cell Carcinoma, Right ([facility]) Iron Deficiency Anemia Hypomagnesemia Gastrointestinal Hemorrhage Associated With Acute Gastritis Esophageal Stenosis Dilated Cardiomyopathy (Hcc) Chronic Diastolic Congestive Heart Failure ([facility]) Sss (Sick Sinus Syndrome) ([facility]) Duodenal Ulcer Type 2 Diabetes Mellitus With Diabetic Peripheral Angiopathy Without Gangrene, Without Long-Term Current Use of Insulin ([facility]) Longstanding Persistent Atrial Fibrillation ([facility]) S/P Placement of Cardiac Pacemaker Ckd [...] (TOPEX) X (OR/PROCEDURE) PRSangeeta Gustafson MD 2 [place] at 03/03/22 1149 fentaNYL 50 mcg/mL injection [...] comparison. Doreen Le PA-C documented in this encounterAvita Health System09-26-2022 Miscellaneous Notes* Telephone Encounter - Sigifredo Rivera [...] Thanks, Edmund Le PA-C documented in this encounterAvita Health System09-26-2022 Instructions* Patient Instructions* Carla Burdick MD - 03/30/2022 9:13 AM EDT We are increasing the Toprol (Metoprolol succinate) to 50 mg two times per day We are replacing the Lisinopril with Losartan 25 mg once per day Repeat blood work 7-10 days after starting the Losartan documented in this encounterAvita Health System09-26-2022 History of Present illness Narrative* Carla Burdick MD - 03/30/2022 8:40 AM EDT Images from the original note were not included. [facility] SECTION OF REGIONAL CARDIOLOGY Cardiology ([facility]) [address] [facility] [id number] OUTPATIENT VISIT DATE 03/30/2022 PRIMARY CARE PHYSICIAN: Doreen Le [address] [place] [address] HISTORY OF PRESENT ILLNESS: Ms. Sanches is a 76 year old woman with a history of remote aortic valve replacement with homograft in 1996 and possible repair of the ascending aorta, hypertension, dyslipidemia, atrial fibrillation with history of pulmonary vein isolation procedures, pacemaker placement recent watchman procedurewho presents for follow-up after hospital admission for congestive heart failure. She had gone on acruise to [place] and developed lower extremity edema and worsening shortness of breath. On return to [place], she had worsening symptoms of weight gain, PND, and orthopnea symptoms. She was seen at [facility] and was treated for acute [...] regurgitation Pacemaker 10/21/[address] SELAM BARTLETT [id number] pulse generator, his bundle lead, right atrial lead Peripheral arterial disease (HCC) Rheumatic fever Steatosis, liver 03/26/2014 fatty liver on US. 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 Lua PACEMAKER 10/2019 PART. HYSTERECTOMY W/WO RMVL OVARIES/TUBES 1973 h/o cervical cancer ovaries remain PAST SURGICAL HISTORY OF 1996 Aortic valve repair, Dr. Apodaca PAST SURGICAL HISTORY OF 2001 [address] Beltrán, [facility] PAST SURGICAL HISTORY OF 2015 clipping and [...] 09/10/2021: LBB in RV port PRESENTING EGM: AFL/HIDE BUYER BATTERY STATUS: Estimated time remaining to YUE [...] 2019. Carla Burdick MD documented in this encounterAvita Health System09-17-2022 Miscellaneous Notes* Telephone Encounter - Juan Diego Carroll Jr., MD - 03/21/2022 10:51 AM EDT [place] consult Needs appt with [facility] in [place] * Telephone Encounter - Juan Diego Carroll Jr., MD - 03/21/2022 10:51 AM EDT ----- Message from Huy Chauhan MD sent at 03/21/2022 9:11 AM EDT ----- Regarding: Renal mass Thank you Mike. Son documented in this encounterAvita Health System09-16-2022 History of Present illness Narrative* Sheridan Cervantes RN - 03/20/2022 8:22 AM EDT TRANSITION CARE MANAGEMENT (TCM) FOLLOW-UP NOTE Provider Action/FYI Chart reviewed. TCM removed name from TEAMS due to [facility] admission 03/19/22 chf. TCM follow up pending hospital discharge disposition. Summary: Pt discharged from [facility] on 02/24. Admitted for: GI bleeding diverticular bleed/acute blood loss anemia [employer] plan for next outreach: No further follow up needed at this time Signature Sheridan Cervantes RN March 20, 2022 documented in this encounterAvita Health System09-15-2022 History of Past illness Narrative* Problem Noted [...] get beds in local hospital, transferred to [facility]. 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 Patient had her eyes examined in [place] this year and was told that she [...] of this encounter (statuses as of 03/23/2022) [facility] of Past illness Narrative* Problem Noted [...] get beds in local hospital, transferred to [facility]. 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 Patient had her eyes examined in [place] this year and was told that she [...] of this encounter (statuses as of 03/28/2022) [facility] of Past illness Narrative* Problem Noted [...] get beds in local hospital, transferred to [facility]. 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 Patient had her eyes examined in [place] this year and was told that she [...] of this encounter (statuses as of 03/30/2022) [facility] of Past illness Narrative* Problem Noted [...] get beds in local hospital, transferred to [facility]. 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 Patient had her eyes examined in [place] this year and was told that she [...] of this encounter (statuses as of 03/30/2022) [facility] of Past illness Narrative* Problem Noted [...] get beds in local hospital, transferred to [facility]. Anemia due to GI blood loss 10/24/201903/05 [...] 12/22/2018 Prosthetic aortic valve stenosis 11/19/2016 12/22/2018 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 therapy [...] diarrhea. Patient had her eyes examined in [place] this year and was told that she [...] of this encounter (statuses as of 04/06/2022) [facility] of Past illness Narrative* Problem Noted [...] get beds in local hospital, transferred to [facility]. Anemia due to GI blood loss 10/24/201903/05 [...] 12/22/2018 Prosthetic aortic valve stenosis 11/19/2016 12/22/2018 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 therapy [...] diarrhea. Patient had her eyes examined in [place] this year and was told that she [...] of this encounter (statuses as of 04/07/2022) [facility] of Past illness Narrative* Problem Noted [...] get beds in local hospital, transferred to [facility]. Anemia due to GI blood loss 10/24/201903/05 [...] 12/22/2018 Prosthetic aortic valve stenosis 11/19/2016 12/22/2018 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 therapy [...] diarrhea. Patient had her eyes examined in [place] this year and was told that she [...] of this encounter (statuses as of 04/08/2022) [facility] of Past illness Narrative* Problem Noted [...] get beds in local hospital, transferred to [facility]. Anemia due to GI blood loss 10/24/201903/05 [...] 12/22/2018 Prosthetic aortic valve stenosis 11/19/2016 12/22/2018 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 therapy [...] diarrhea. Patient had her eyes examined in [place] this year and was told that she [...] of this encounter (statuses as of 04/09/2022) [facility] of Past illness Narrative* Problem Noted [...] get beds in local hospital, transferred to [facility]. 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 Patient had her eyes examined in [place] this year and was told that she [...] of this encounter (statuses as of 04/17/2022) [facility] of Past illness Narrative* Problem Noted [...] get beds in local hospital, transferred to [facility]. 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 Patient had her eyes examined in [place] this year and was told that she [...] of this encounter (statuses as of 04/20/2022) [facility] Past illness Narrative* Problem Noted [...] get beds in local hospital, transferred to [facility]. 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 Patient had her eyes examined in [place] this year and was told that she [...] of this encounter (statuses as of 04/22/2022) [facility] Narrative* Problem Noted [...] get beds in local hospital, transferred to [facility]. 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 Patient had her eyes examined in [place] this year and was told that she [...] of this encounter (statuses as of 04/23/2022) [facility] Narrative* Problem Noted [...] get beds in local hospital, transferred to [facility]. 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 Patient had her eyes examined in [place] this year and was told that she [...] of this encounter (statuses as of 04/28/2022) [facility] Narrative* Problem Noted [...] get beds in local hospital, transferred to [facility]. Anemia due to GI blood loss 10/24/201903/05 [...] 12/22/2018 Prosthetic aortic valve stenosis 11/19/2016 12/22/2018 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 therapy [...] diarrhea. Patient had her eyes examined in [place] this year and was told that she [...] of this encounter (statuses as of 05/15/2022) [facility] illness Narrative* Problem Noted [...] get beds in local hospital, transferred to [facility]. 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 Patient had her eyes examined in [place] this year and was told that she [...] of this encounter (statuses as of 05/25/2022) [facility] Narrative* Problem Noted [...] get beds in local hospital, transferred to [facility]. Anemia due to GI blood loss 10/24/201903/05 [...] 12/22/2018 Prosthetic aortic valve stenosis 11/19/2016 12/22/2018 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 therapy [...] diarrhea. Patient had her eyes examined in [place] this year and was told that she [...] of this encounter (statuses as of 05/29/2022) [facility] Narrative* Problem Noted [...] get beds in local hospital, transferred to [facility]. Anemia due to GI blood loss 10/24/201903/05 [...] 12/22/2018 Prosthetic aortic valve stenosis 11/19/2016 12/22/2018 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 therapy [...] diarrhea. Patient had her eyes examined in [place] this year and was told that she [...] of this encounter (statuses as of 07/06/2022) [facility] Narrative* Problem Noted [...] get beds in local hospital, transferred to [facility]. 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 Patient had her eyes examined in [place] this year and was told that she [...] of this encounter (statuses as of 07/09/2022) [facility] Narrative* Problem Noted [...] get beds in local hospital, transferred to [facility]. Anemia due to GI blood loss 10/24/201903/05 [...] 12/22/2018 Prosthetic aortic valve stenosis 11/19/2016 12/22/2018 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 therapy [...] diarrhea. Patient had her eyes examined in [place] this year and was told that she [...] of this encounter (statuses as of 07/22/2022) [facility] Narrative* Problem Noted [...] get beds in local hospital, transferred to [facility]. 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 Patient had her eyes examined in [place] this year and was told that she [...] of this encounter (statuses as of 07/22/2022) [facility] Narrative* Problem Noted [...] get beds in local hospital, transferred to [facility]. 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 Patient had her eyes examined in [place] this year and was told that she [...] of this encounter (statuses as of 09/01/2022) [facility] Narrative* Problem Noted [...] get beds in local hospital, transferred to [facility]. 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 Patient had her eyes examined in [place] this year and was told that she [...] of this encounter (statuses as of 09/27/2022) [facility] Narrative* Problem Noted [...] get beds in local hospital, transferred to [facility]. 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 Patient had her eyes examined in [place] this year and was told that she [...] of this encounter (statuses as of 09/28/2022) [facility] Narrative* Problem Noted [...] get beds in local hospital, transferred to [facility]. 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 Patient had her eyes examined in [place] this year and was told that she [...] of this encounter (statuses as of 09/29/2022) [facility] Narrative* Problem Noted [...] get beds in local hospital, transferred to [facility]. 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 Patient had her eyes examined in [place] this year and was told that she [...] of this encounter (statuses as of 10/07/2022) [facility] Narrative* Problem Noted [...] get beds in local hospital, transferred to [facility]. 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 Patient had her eyes examined in [place] this year and was told that she [...] of this encounter (statuses as of 12/29/2022) [facility] Narrative* Problem Noted [...] get beds in local hospital, transferred to [facility]. Anemia due to GI blood loss 10/24/2019 [...] 12/22/2018 Prosthetic aortic valve stenosis 11/19/2016 12/22/2018 prison current use of ant iarrhythmic medical therapy [...] diarrhea. Patient had her eyes examined in [place] this year and was told that she [...] of this encounter (statuses as of 01/09/2023) [facility] Narrative* Problem Noted [...] get beds in local hospital, transferred to [facility]. Anemia due to GI blood loss 10/24/2019 [...] 12/22/2018 Prosthetic aortic valve stenosis 11/19/2016 12/22/2018 prison current use of ant iarrhythmic medical therapy [...] diarrhea. Patient had her eyes examined in [place] this year and was told that she [...] of this encounter (statuses as of 01/28/2023) [facility] Narrative* Problem Noted [...] get beds in local hospital, transferred to [facility]. Anemia due to GI blood loss 10/24/2019 [...] 12/22/2018 Prosthetic aortic valve stenosis 11/19/2016 12/22/2018 termite treater helper current use of ant iarrhythmic medical [...] diarrhea. Patient had her eyes examined in [place] this year and was told that she [...] of this encounter (statuses as of 03/15/2023) [facility] Narrative* Problem Noted [...] get beds in local hospital, transferred to [facility]. Anemia due to GI blood loss 10/24/2019 [...] 12/22/2018 Prosthetic aortic valve stenosis 11/19/2016 12/22/2018 termite treater helper current use of ant iarrhythmic medical [...] diarrhea. Patient had her eyes examined in [place] this year and was told that she [...] of this encounter (statuses as of 03/28/2023) [facility] Narrative* Problem Noted [...] get beds in local hospital, transferred to [facility]. Anemia due to GI blood loss 10/24/2019 [...] 12/22/2018 Prosthetic aortic valve stenosis 11/19/2016 12/22/2018 prison current use of ant iarrhythmic medical therapy [...] diarrhea. Patient had her eyes examined in [place] this year and was told that she [...] of this encounter (statuses as of 05/07/2023) [facility] Narrative* Problem Noted [...] get beds in local hospital, transferred to [facility]. Anemia due to GI blood loss 10/24/2019 [...] 12/22/2018 Prosthetic aortic valve stenosis 11/19/2016 12/22/2018 termite treater helper current use of ant iarrhythmic medical [...] diarrhea. Patient had her eyes examined in [place] this year and was told that she [...] of this encounter (statuses as of 05/07/2023) [facility] Narrative* Problem Noted [...] get beds in local hospital, transferred to [facility]. Anemia due to GI blood loss 10/24/2019 [...] 12/22/2018 Prosthetic aortic valve stenosis 11/19/2016 12/22/2018 termite treater helper current use of ant iarrhythmic medical [...] diarrhea. Patient had her eyes examined in [place] this year and was told that she [...] of this encounter (statuses as of 05/21/2023) [facility] Narrative* Problem Noted [...] get beds in local hospital, transferred to [facility]. Anemia due to GI blood loss 10/24/2019 [...] 12/22/2018 Prosthetic aortic valve stenosis 11/19/2016 12/22/2018 prison current use of ant iarrhythmic medical therapy [...] diarrhea. Patient had her eyes examined in [place] this year and was told that she [...] of this encounter (statuses as of 06/08/2023) [facility] Narrative* Problem Noted [...] get beds in local hospital, transferred to [facility]. Anemia due to GI blood loss 10/24/2019 [...] 12/22/2018 Prosthetic aortic valve stenosis 11/19/2016 12/22/2018 prison current use of ant iarrhythmic medical therapy [...] diarrhea. Patient had her eyes examined in [place] this year and was told that she [...] of this encounter (statuses as of 07/05/2023) [facility] Narrative* Problem Noted [...] get beds in local hospital, transferred to [facility]. Anemia due to GI blood loss 10/24/2019 [...] 12/22/2018 Prosthetic aortic valve stenosis 11/19/2016 12/22/2018 prison current use of ant iarrhythmic medical therapy [...] diarrhea. Patient had her eyes examined in [place] this year and was told that she [...] of this encounter (statuses as of 10/15/2023) [facility] Narrative* Problem Noted [...] get beds in local hospital, transferred to [facility]. Anemia due to GI blood loss 10/24/2019 [...] 12/22/2018 Prosthetic aortic valve stenosis 11/19/2016 12/22/2018 termite treater helper current use of ant iarrhythmic medical [...] diarrhea. Patient had her [place] examined in [place] this year and was told that she [...] of this encounter (statuses as of 10/16/2023) [facility] Narrative* Problem Noted [...] get beds in local hospital, transferred to [facility]. Anemia due to GI blood loss 10/24/2019 [...] 12/22/2018 Prosthetic aortic valve stenosis 11/19/2016 12/22/2018 termite treater helper current use of ant iarrhythmic medical [...] diarrhea. Patient had her eyes examined in [place] this year and was told that she [...] of this encounter (statuses as of 10/21/2023) [facility] Narrative* Doreen Le PA-C - 03/19/2022 10:40 AM EDT 76 year old female with extensive hx AF, CHF, HTN, S/P aortic valve replacemet, s/p Watchman procedure recently off coumadin c/o leg swelling bilaterally over last 4-5 days. Flew home from [place] last night. Did get up and walk several times during flight. . SOB x 4-5 days, can hardly go more than 10-15 steps without resting. No chest pain. Feels heart racing at times. No syncopal sx. Feels leg are warm, heavy No pain. Got back from [place] 2am this morning Able to lay supine. No Admitted [facility] 02/21-02/24/2022 for persistent melena, progressive anemia [...] prosthetic valve #28, 2-3+ AR PV tr NV Component Latest Ref Rng & Units 02/23/2022 [...] Lymph 1.00 - 4.00 k/uL 2.31 2.51 [place]% % 12.2 12.4 Abs [place] <0.87 k/uL 0.94 (H) 1.04 (H) [place]% [...] regurgitation Pacemaker 10/21/[address] SELAM BARTLETT [id number] pulse generator, his bundle lead, right atrial lead Peripheral arterial disease (HCC) Rheumatic fever Steatosis, liver 03/26/2014 fatty liver on US. 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 Lua PACEMAKER 10/2019 PART. HYSTERECTOMY W/WO RMVL OVARIES/TUBES 1974 h/o cervical cancer ovaries remain PAST SURGICAL HISTORY OF 1996 Aortic valve repair, Dr. Apodaca PAST SURGICAL HISTORY OF 2001 [address] 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 Chronic Renal Impairment Associated With Type 2 Diabetes Mellitus ([facility]) History of Pulmonary Embolism Ascending Aorta Dilatation ([facility]) Chronic Bilateral Pleural Effusions Colovesical Fistula Renal Mass, Right Diverticulitis Large Intestine W/O Perforation Or Abscess W/O Bleeding Renal Cell Carcinoma, Right (Hcc) Iron Deficiency Anemia Hypomagnesemia Gastrointestinal Hemorrhage Associated With Acute Gastritis Esophageal Stenosis Dilated Cardiomyopathy (Hcc) Chronic Diastolic Congestive Heart Failure (Hcc) Sss (Sick Sinus Syndrome) ([facility]) Duodenal Ulcer Type 2 Diabetes Mellitus With Diabetic Peripheral Angiopathy Without Gangrene, Without Long-Term Current Use of Insulin (Hcc) Atrial Fibrillation ([facility]) Current Outpatient Medications Medication Sig Dispense [...] lidocaine viscous 2 % (XYLOCAINE) X (OR/PROCEDURE) PRN Randy Gustafson MD 15 mL at 03/03/22 1149 benzocaine 20% (TOPEX) X (OR/PROCEDURE) PRSangeeta Gustafson MD 2 [place] at 03/03/22 1149 fentaNYL 50 mcg/mL injection [...] <130/80 Doreen Le PA-C documented in this encounterAvita Health System09-01-2022 History of Present illness Narrative* Sheridan Cervantes RN - 03/05/2022 12:39 PM EDT TRANSITION CARE MANAGEMENT (TCM) FOLLOW-UP NOTE Provider Action/FYI Chart reviewed, TCM follow up call deferred due to 03/03 office visit with JASPREET Torres. Summary: Pt discharged from [facility] on 02/24. 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: Will follow up Signature Sheridan Cervantes RN March 05, 2022 documented in this encounterAvita Health System08-31-2022 Miscellaneous Notes* Addendum Note - Radha Torres APRN.CNP - 03/04/2022 10:54 AM EDTAddended by: RADHA TORRES on: 03/04/2022 10:54 AM Modules accepted: Orders, SmartSet * Addendum Note - Radha Torres APRN.CNP - 03/04/2022 9:46 AM EDTAddended by: RADHA TORRES on: 03/04/2022 09:46 AM Modules accepted: Orders documented in this encounterAvita Health System08-30-2022 History of Present illness Narrative* Radha Torres APRN.CNP - 03/03/2022 12:00 PM EDT Images from the original note were not included. [facility] [place] [facility] Department of Cardiovascular Medicine SECTION OF CARDIAC PACING and ELECTROPHYSIOLOGY OUTPATIENT VISIT DATE March 03, 2022 OUTPATIENT VISIT TYPE ESTABLISHED PRIMARY CARE PHYSICIAN: Doreen Le [address] [place] [address] CHIEF COMPLAINT: Post Watchman follow up HISTORY [...] upper and lower endoscopy were non diagnostic. [id number] score: 7 (congestive heart failure, hypertension, age [...] regurgitation Pacemaker 10/21/[address] SELAM BARTLETT [id number] pulse generator, his bundle lead, right atrial lead Peripheral arterial disease (HCC) Rheumatic fever Steatosis, liver 03/26/2014 fatty liver on US. 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 Lua PACEMAKER 10/2019 PART. HYSTERECTOMY W/WO RMVL OVARIES/TUBES 1974 h/o cervical cancer ovaries remain PAST SURGICAL HISTORY OF 1996 Aortic valve repair, Dr. Apodaca PAST SURGICAL HISTORY OF 2001 [address] Beltrán, [facility] PAST SURGICAL HISTORY OF 2016 clipping and [...] yearly in-clinic device checks. Ying Hart RN [place] to Dr. Fay in Dr. Gomez's absence [...] assess as well. - The following is retail representative of measurements of LAXMI dimensions from [...] the prior CC echocardiographic exam performed on 10/08/20. Interval progression of mitral and aortic regurgitation. Now s/p successful placement of Watchman FLX #27 placement. * * * Final * * * Last EKG Result Conclusion ECG COMPLETE Collected: 03/03/2022 9:59 AM (Preliminary result) Impression: ATRIAL FIBRILLATION WITH RAPID VENTRICULAR RESPONSE MINIMAL VOLTAGE CRITERIA FOR LVH, MAY BE NORMAL VARIANT ( [place] product ) ABNORMAL ECG ABDIEL: CONCLUSIONS: - [...] upper and lower endoscopy were non diagnostic. [id number] score: 7 (congestive heart failure, hypertension, age [...] a dose of IV iron. Her GI DrCoty Graf spoke to Dr. Mcgowannand Xarelto was [...] discussed. Rx for Plavix sent in to [facility]. Follow up advised with Dr. [place] to be scheduled. ABDIEL at 1 year from the Watchman procedure, around 01/12/2023. CONTACT INFORMATION: Radha Torres APRN.CNP documented in this encounterAvita Health System08-30-2022 Nurse Note* Alexandre Avalos RN - 03/03/2022 [...] RN In Department: CARDIOLOGY documented in this encounterAvita Health System08-29-2022 Miscellaneous Notes* Telephone Encounter - Saima England [...] In Department of CARDIOLOGY. documented in this encounterAvita Health System08-24-2022 History of Present illness Narrative* Harika Tomas RN - 02/25/2022 2:27 PM EDT TCM Home Visit Referral Source of Stratification: [facility] Admission Status: Discharged Readmission Risk Score: 18 [...] PROGRAM Provider Action/FYI: SUMMARY: Pt discharged from [facility] on 02/24. Admitted for: PRINCIPAL DIAGNOSIS: GI bleeding diverticular bleed/acute blood loss anemia Contact made with patient: No - 2nd unsuccessful attempt - end outreach and close encounter Outreach ended Harika LOPEZ [facility] [phone] * Harika Tomas RN - 02/25/2022 10:14 AM EDT TCM Home Visit Referral Source of Stratification: [facility] Admission Status: Discharged Readmission Risk Score: 18 [...] today or tomorrow SUMMARY: Pt discharged from [facility] on 02/24. Admitted for: PRINCIPAL DIAGNOSIS: GI bleeding diverticular bleed/acute blood loss anemia Contact made with patient: No - next outreach attempt will be on next day Outreach ended Harika LOPEZ [facility] [phone] documented in this encounterAvita Health System08-21-2022 History of Past illness Narrative* Problem Noted [...] get beds in local hospital, transferred to [facility]. 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 Patient had her eyes examined in [place] this year and was told that she [...] of this encounter (statuses as of 02/25/2022) [facility] History of Past illness Narrative* Problem Noted [...] get beds in local hospital, transferred to [facility]. 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 Patient had her eyes examined in [place] this year and was told that she [...] of this encounter (statuses as of 03/02/2022) [facility] History of Past illness Narrative* Problem Noted [...] get beds in local hospital, transferred to [facility]. Anemia 10/24/2019 09/12/2021 Last Assessment & Plan: Assessment & PLAN: See above Renal cell carcinoma 10/24/2019 09/12/2021 Last Assessment & Plan: Currently following with urology (Dr. 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 Patient had her [place] examined in [place] this year and was told that she [...] of this encounter (statuses as of 03/03/2022) [facility] History of Past illness Narrative* Problem Noted [...] get beds in local hospital, transferred to [facility]. 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 Patient had her eyes examined in [place] this year and was told that she [...] of this encounter (statuses as of 03/04/2022) [facility] History of Past illness Narrative* Problem Noted [...] get beds in local hospital, transferred to [facility]. 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 Patient had her eyes examined in [place] this year and was told that she [...] of this encounter (statuses as of 03/05/2022) [facility] History of Past illness Narrative* Problem Noted [...] get beds in local hospital, transferred to [facility]. 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 Patient had her [place] examined [place] this year and was told that she [...] of this encounter (statuses as of 03/11/2022) [facility] History of Past illness Narrative* Problem Noted [...] get beds in local hospital, transferred to [facility]. 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 Patient had her eyes examined in [place] this year and was told that she [...] of this encounter (statuses as of 03/20/2022) [facility] History of Past illness Narrative* Problem Noted [...] get beds in local hospital, transferred to [facility]. 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 Patient had her [place] examined in [place] this year and was told that she [...] of this encounter (statuses as of 03/20/2022) [facility] History of Past illness Narrative* Problem Noted [...] get beds in local hospital, transferred to [facility]. Renal cell carcinoma 10/24/2019 09/12/2021 Last Assessment [...] 12/22/2018 Prosthetic aortic valve stenosis 11/19/2016 12/22/2018 prison current use of antiarrhythmic medical therapy 10/20/2016 [...] diarrhea. Patient had her [place] examined in [place] this year and was told that she [...] of this encounter (statuses as of 03/21/2022) [facility] Miscellaneous Notes* Telephone Encounter - Rojelio Jamison PA-C - 02/20/2022 4:06 PM EDT [...] testing. Giovanna Powell RN documented in this encounterAvita Health System08-19-2022 History of Present illness Narrative* Doreen Le PA-C - 02/20/2022 9:40 AM EDT 76 year [...] anxious about potential risk of having to [place] with family. 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 Lua PACEMAKER 10/2019 PART. HYSTERECTOMY W/WO RMVL OVARIES/TUBES 1974 h/o cervical cancer ovaries remain PAST SURGICAL HISTORY OF 1996 Aortic valve repair, Dr. Apodaca PAST SURGICAL HISTORY OF 2001 [address] Beltrán, [facility] PAST SURGICAL HISTORY OF 2015 clipping and [...] PNL Doreen Le PA-C documented in this encounterAvita Health System07-20-2022 Miscellaneous Notes* Telephone Encounter - Deonna Bryant - 01/21/2022 10:30 AM EDT January 21, 2022 Patient Contact Number: [phone] (home) [phone] (cell) Patient last seen within the last year: Yes Reason for Call: Patient called to schedule follow up from Watchman procedure. Order for ABDIEL needs to be placed (can be done by BACK TENDER CYLINDER) and patient should contact office as soon as ABDIEL is done so it can be reviewed (should be done 45 days after the procedure). BACK TENDER CYLINDER: Please place Order for ABDIEL. Admin to request ABDIEL for after 02/26/2022 but before 03/07/2022. Thank you, Deonna Bryant, Admin documented in this encounterAvita Health System07-18-2022 Miscellaneous Notes* Telephone Encounter - Ivory Graham - 01/19/2022 11:05 AM EDT Call from pharmacy requesting refill. Pending Prescriptions Disp Refills ASPIRIN 81 MG CHEWABLE TABLET 90 tablet 3 Sig: Take 1 tablet by mouth once daily. BRAYAN: No Patient last seen 01/09/2022 Ivory Graham documented in this encounterAvita Health System07-15-2022 Instructions* Patient Instructions* Doreen Le PA-C - [...] keep your stress under control. Published by [employer]. This content is reviewed periodically and is subject to change as new health information becomes available. The information is intended to inform and educate and is not a replacement for medical evaluation, advice, diagnosis or treatment by a healthcare professional. Developed by [employer]. Copyright 2005 [employer] and/or one of its subsidiaries. All Rights Reserved. documented in this encounterAvita Health System07-15-2022 History of Present illness Narrative* Doreen Le PA-C - 01/16/2022 10:32 AM EDT [...] regurgitation Pacemaker 10/21/[address] SELAM BARTLETT [id number] pulse generator, his bundle lead, right atrial lead Peripheral arterial disease (HCC) Rheumatic fever Steatosis, liver 03/26/2014 fatty liver on US. 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 Lua PACEMAKER 10/2019 PART. HYSTERECTOMY W/WO RMVL OVARIES/TUBES 1974 h/o cervical cancer ovaries remain PAST SURGICAL HISTORY OF 1996 Aortic valve repair, Dr. Apodaca PAST SURGICAL HISTORY OF 2001 [address] Beltrán, [facility] PAST SURGICAL HISTORY OF 2015 clipping and [...] Resp 16 Wt 64.4 kg (142 lb) BwG530% BMI 25.15 kg/m Pleasant frail adult womanin [...] OINTMENT Doreen Le PA-C documented in this encounterChristopher Ville [address]-08-2022 History of Present illness Narrative* Diane Blanchard [...] Explanation of procedure Sedation level during procedure MD medication instructions from EP lab request: Hold [...] discussed with Physician, nurse practitioner or Physician editorial assistant upon discharge Instructions for transmitting EKG to Monitoring [facility] 3 month follow up instructions Contact number for information and questions Patient Evaluation: Verbalizes understanding Follow Up Plan: Follow up as directed by . Supplemental Material Given: Written Material Patient education regarding radiation exposure. Instructed By Diane Blanchard RN. In Department of CARDIOLOGY. documented in this encounterAvita Health System07-08-2022 Instructions* Patient Instructions* Emilia Diallo MD - 01/09/2022 2:19 PM EDT Proceed with your Watchman evaluation. Consider discussing a hematology evaluation in addition to further GI work up as appropriate. Follow up with Dr. Burdick as planned. Follow up with PCP re: prevention in addition to follow up of the kidney mass that was identified on the CT. documented in this encounterAvita Health System07-08-2022 History of Present illness Narrative* Emilia Diallo MD - 01/09/2022 2:15 PM EDT Images from the original note were not included. [facility] Department of Cardiovascular Medicine SECTION OF CLINICAL CARDIOLOGY OUTPATIENT VISIT DATE January 09, 2022 OUTPATIENT VISIT TYPE CON PRIMARY CARE PHYSICIAN: Doreen Le [address] [facility] [address] REFERRING PHYSICIAN: Chandler Swan [address] [facility] [address] CHIEF COMPLAINT: Shared decision making for Watchman [...] 7.7. Received 2 unit(s) PRBCs last week. [id number] score: 7 (congestive heart failure, hypertension, age >/=75, diabetes, vascular disease, female) - on Xarelto 15 mg HASBLED score: 4 (HTN, CKD, bleeding, elderly) She complains of chronic shortness of breath and fatigue. She denies chest pain, orthopnea, cough, edema, palpitations, PND, lightheadedness or syncope. Nursing Intake : Ms. Berta Sanches is a 76 year old female from [place], [place] here today for preopeartive cardiovascular evaluation [...] 11/26/2016: Bilateral carotid artery stenosis Comment: 05/27/16 moderate 50-69% stenosis right and left 07/20/2015: Bilateral pneumonia No date: Cancer of cervix ([facility]) No date: Cervical cancer ([facility]) Comment: 197206/01/2015: Chest pain Comment: negative work up with nuclar stress No date: CHF (congestive heart failure) ([facility]) No date: Cholesteatoma of right ear Comment: surgical removal No date: Chronic mastoiditis of left side No date: Diabetes ([facility]) No date: Diabetes ([facility]) No date: GERD (gastroesophageal reflux disease) No date: H/O: GI bleed No date: High blood pressure No date: Hypercholesterolemia No date: Mastoiditis of right side Comment: s/p mastoidectomy, complete opacitificationright tympanic cavity and mastoid cells on CT 06/01/16 No date: Mitral valve regurgitation 10/21/2020: Pacemaker Comment: [employer] SANIA XT DR SELAM BARTLETT [id number] pulse generator, his bundle lead, right [...] ESOPHAGOGASTRODUODENOSCOPY TRANSORAL DIAGNOSTIC 07/18/2019: LAP COLECTOMY, SIGMOID W/AREA DIRECTOR; N/A Comment: for colovesicle fistula - Dr. Mosley 04/30/2015: MASTOIDECTOMY; Right Comment: cholesteatoma removed, Dr. Lua 10/2019: PACEMAKER 1974: PART. HYSTERECTOMY W/WO RMVL OVARIES/TUBES Comment: h/o cervical cancer ovaries remain 1996: PAST SURGICAL HISTORY OF Comment: Aortic valve repair, Dr. Apodaca 2001: PAST SURGICAL HISTORY OF Comment: [address] Beltrán, [facility] 2016: PAST SURGICAL HISTORY OF Comment: clipping [...] Abs Lymph 1.00 - 4.00 k/uL 1.82 [place]% % 14.0 Abs [place] <0.87 k/uL 1.27 (H) Eosin% % 1.9 [...] etiology while on Xarelto. Unknown etiology. Her [id number] is elevated at 7 portenidng an increased risk of CVA and her HASBLED score is elevated. It is reasonable to consider Watchman procedure as after undergoing a LAXMI closure procedure, she will not need long chain quiller tender anticoagulation which eliminates anticoagulation side effects and major bleeding risk. After today's visit with Mrs. Sanches, which was dedicated solely for shared decision making visitregarding LAXMI closure device, she decided to proceed with the LAXMI appendage closure procedure [facility] the [facility]. Of note, she should continue with her [...] 09, 2022, 5:59 PM documented in this encounterAvita Health System07-01-2022 History and physical note * Chai Encinas [...] were not included. HISTORY AND PHYSICAL Berta J Verónica 1945 REFERRING PHYSICIAN: Doreen Le PA-C CHIEF [...] likely gallbladder issues. When she presented to [facility] department on February 13, 2018 she [...] She underwent upper and lower endoscopy at [facility] also for anemia on October 26, [address] Drummond. She was found to have erosive gastritis. 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 The patient is being seen by me at the request of oDreen Le PA-C for my opinion and advice [...] regurgitation Pacemaker 10/21/[address] SELAM BARTLETT [id number] pulse generator, his bundle lead, right atrial lead Peripheral arterial disease (HCC) Rheumatic fever Steatosis, liver 03/26/2014 fatty liver on US. 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 Lua PACEMAKER 10/2019 PART. HYSTERECTOMY W/WO RMVL OVARIES/TUBES 1973 h/o cervical cancer ovaries remain PAST SURGICAL HISTORY OF 1996 Aortic valve repair, Dr. Apodaca PAST SURGICAL HISTORY OF 2001 [address] Beltrán, [facility] PAST SURGICAL HISTORY OF 2015 clipping and [...] entered by the nurse and reviewed by sc Nursing Notes: Stacie Mancera LPN 01/01/2022 9:48 [...] her for urgent upper endoscopy tomorrow in [place]. Diagnoses: (D50.0) Anemia, blood loss (primary encounter [...] needed. Chai Encinas MD documented in this encounterAvita Health System06-30-2022 Miscellaneous Notes* Telephone Encounter - Yessenia Monroe - 01/01/2022 10:27 AM EDT 01-02-2022 [place] documented in this encounterAvita Health System06-30-2022 History of Present illness Narrative* Chai Encinas [...] likely gallbladder issues. When she presented to [facility] department on February 13, 2018 she [...] She underwent upper and lower endoscopy at [facility] also for anemia on October 26, 2019 [...] regurgitation Pacemaker 10/21/[address] SELAM BARTLETT [id number] pulse generator, his bundle lead, right atrial lead Peripheral arterial disease (HCC) Rheumatic fever Steatosis, liver 03/26/2014 fatty liver on US. 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 Lua PACEMAKER 10/2019 PART. HYSTERECTOMY W/WO RMVL OVARIES/TUBES 1973 h/o cervical cancer ovaries remain PAST SURGICAL HISTORY OF 1996 Aortic valve repair, Dr. Apodaca PAST SURGICAL HISTORY OF 2001 [address] Beltrán, [facility] PAST SURGICAL HISTORY OF 2015 clipping and coil for brain aneurysm Current [...] entered by the nurse and reviewed by me Nursing Notes: Stacie ManceraGOPI 01/01/2022 9:48 AM Signed REVIEW OF SYSTEMS: [...] gout. When was patient's last Mammogram screening? 2017 Last Colonoscopy: 2019 Stacie Mancera LPN PHYSICAL [...] her for urgent upper endoscopy tomorrow in [place]. Diagnoses: (D50.0) Anemia, blood loss (primary encounter [...] needed. Chai Encinas MD documented in this encounterAvita Health System06-30-2022 Nurse Note* Stacie Mancera, GOPI - 01/01/2022 9:46 AM EDT REVIEW OF [...] 2019 Stacie Mancera LPN documented in this encounterAvita Health System06-27-2022 Miscellaneous Notes* Telephone Encounter - Doreen Le PA-C - 12/29/2021 4:19 PM EDT Thanks for the help! Doreen Le PA-C * Telephone Encounter - Sheree Savage Ma - 12/29/2021 3:57 PM EDT Patient is scheduled for for transfusion of 2 units packed red blood cells at [facility] for 8 am tomorrow. Patient has been notified and will stop by tonight to get type and cross. documented in this encounterAvita Health System06-25-2022 Miscellaneous Notes* Telephone Encounter - Sheree Savage [...] couple of days she will go to [facility] ED. Reason for Disposition [1] MILD weakness [...] since yesterday. Protocols used: WEAKNESS (GENERALIZED) AND [id number] documented in this encounterAvita Health System06-25-2022 Miscellaneous Notes* Telephone Encounter - Radha Pyle RN - 12/27/2021 9:57 AM EDT Triage completed 12/27 for symptoms. See triage encounter. Radha Pyle RN documented in this encounterAvita Health System06-23-2022 Miscellaneous Notes* Telephone Encounter - Marleen Schaffer [...] EDT December 25, 2021 Patient Contact Number: [phone] (home) [phone] (cell) Patient last seen within the last year: Yes Reason for Call: Medication Issue/Question: Patient states that she is supposed to decrease medication in preparation of surgery in two weeks, but she is having symptoms and is having difficulty tolorating. Thank you, Marisol Page documented in this encounterAvita Health System06-20-2022 Miscellaneous Notes* Telephone Encounter - Brittany Norton [...] need schedules to follow. documented in this encounterAvita Health System06-13-2022 History of Present illness Narrative* Marisol Cook RT(Katie) - 12/15/2021 11:00 AM EDT Radiology Service [...] IV DATA: Not applicable SIGNED BY: RT Mario(Katie) December 15, 2021 11:04 AM documented in this encounterAvita Health System06-13-2022 History of Present illness Narrative* Doreen Le PA-C - 12/15/2021 9:00 AM EDT 76 year old female with c/o Multiple concerns: Pain in left hip/ left buttock: Started about 2 weeks, hard to ride in car, very painful. Hurts to bend over. Extremely tired all the time Persistent leg pain bilateral, especially around calves. Has to stop and rest. No problems in [place] Jul,. Needs Covid booster #1 History of pulmonary [...] bilateral inflow resting waveforms. 11/26/2021 f/u vascular BACK TENDER CYLINDER Na Ramirez 10/24/2018 US carotids: RIGHT: CCA plaques w/o significant hemodynamic stenosis, ICA 20-39%, VA patent w/antegrade. LEFT: CCA plaque w/o significant hemodynamic stenosis, PSM38-73%%, VA patent w/antegrade, SA clear 12/02/2017 MRI/ [...] regurgitation Pacemaker 10/21/[address] SELAM BARTLETT [id number] pulse generator, his bundle lead, right atrial lead Peripheral arterial disease (HCC) Rheumatic fever Steatosis, liver 03/26/2014 fatty liver on US. 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 Lua PACEMAKER 10/2019 PART. HYSTERECTOMY W/WO RMVL OVARIES/TUBES 1973 h/o cervical cancer ovaries remain PAST SURGICAL HISTORY OF 1996 Aortic valve repair, Dr. Apodaca PAST SURGICAL HISTORY OF 2001 [address] Beltrán, [facility] PAST SURGICAL HISTORY OF 2015 clipping and [...] - ICD9: 430, ICD10: I67.1 Last MRA/MRI 2018- will review next visit 10. Bilateral carotid [...] ICD10: D12.4 18. PAD (peripheral artery disease) (HCC) - ICD9: 443.9, ICD10: I73.9 19. Type [...] LEFT Doreen Le PA-C documented in this encounterAvita Health System06-02-2022 Miscellaneous Notes* Telephone Encounter - Marleen Schaffer [...] EDT December 03, 2021 Patient Contact Number: [phone] (home) [phone] (cell) Patient last seen within the last [...] you, Deonna Bryant, Admin documented in this encounterAvita Health System05-26-2022 History of Present illness Narrative* Dagmar Thomas - 11/27/2021 12:36 PM EDT set documented in this encounterAvita Health System05-25-2022 History of Present illness Narrative* Na Ramirez APRN.MANAGER REGULATORY - 11/26/2021 9:27 AM EDT VASCULAR SURGERY [...] regurgitation Pacemaker 10/21/[address] SELAM BARTLETT [id number] pulse generator, his bundle lead, right atrial lead Peripheral arterial disease (HCC) Rheumatic fever Steatosis, liver 03/26/2014 fatty liver on US. 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 Lua PACEMAKER 10/2019 PART. HYSTERECTOMY W/WO RMVL OVARIES/TUBES 1974 h/o cervical cancer ovaries remain PAST SURGICAL HISTORY OF 1996 Aortic valve repair, Dr. Apodaca PAST SURGICAL HISTORY OF 2001 [address] Beltrán, [facility] PAST SURGICAL HISTORY OF 2015 clipping and [...] ambulation Time spent: 45 documented in this encounterAvita Health System04-20-2022 Miscellaneous Notes* Telephone Encounter - Marycruz Olguin - 10/22/2021 3:42 PM EDT Patient needs [...] encounter? yes Marycruz Olguin documented in this encounterAvita Health System03-24-2022 Miscellaneous Notes* Telephone Encounter - Sigifredo Monge [...] to cancel the procedure on 09/29 in [place]. She thought this was cancelled about a month ago when she received a call. She stated she is so sorry. documented in this encounterAvita Health System03-22-2022 Miscellaneous Notes* Telephone Encounter - Inga Pineda [...] procedure. Patient stated understanding. documented in this encounterAvita Health System08-14-2021 History of Past illness Narrative* Problem Noted [...] get beds in local hospital, transferred to [facility]. 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 Patient had her eyes examined in [place] this year and was told that she [...] of this encounter (statuses as of 09/23/2021) [facility] History of Past illness Narrative* Problem Noted [...] get beds in local hospital, transferred to [facility]. 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 Patient had her eyes examined in [place] this year and was told that she [...] of this encounter (statuses as of 09/26/2021) [facility] History of Past illness Narrative* Problem Noted [...] get beds in local hospital, transferred to [facility]. 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 Patient had her eyes examined in [place] this year and was told that she [...] of this encounter (statuses as of 10/22/2021) [facility] History of Past illness Narrative* Problem Noted [...] get beds in local hospital, transferred to [facility]. 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 Patient had her eyes examined in [place] this year and was told that she [...] of this encounter (statuses as of 11/17/2021) [facility] History of Past illness Narrative* Problem Noted [...] get beds in local hospital, transferred to [facility]. 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 Patient had her eyes examined in [place] this year and was told that she [...] of this encounter (statuses as of 11/27/2021) [facility] History of Past illness Narrative* Problem Noted [...] get beds in local hospital, transferred to [facility]. 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 Patient had her eyes examined in [place] this year and was told that she [...] of this encounter (statuses as of 11/27/2021) [facility] of Past illness Narrative* Problem Noted [...] get beds in local hospital, transferred to [facility]. 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 Patient had her eyes examined in [place] this year and was told that she [...] of this encounter (statuses as of 12/04/2021) [facility] of Past illness Narrative* Problem Noted [...] get beds in local hospital, transferred to [facility]. 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 Patient had her eyes examined in [place] this year and was told that she [...] of this encounter (statuses as of 12/04/2021) [facility] of Past illness Narrative* Problem Noted [...] get beds in local hospital, transferred to [facility]. 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 Patient had her eyes examined in [place] this year and was told that she [...] of this encounter (statuses as of 12/13/2021) [facility] of Past illness Narrative* Problem Noted [...] get beds in local hospital, transferred to [facility]. 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 Patient had her eyes examined in [place] this year and was told that she [...] of this encounter (statuses as of 12/15/2021) [facility] of Past illness Narrative* Problem Noted [...] get beds in local hospital, transferred to [facility]. 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 Patient had her eyes examined in [place] this year and was told that she [...] of this encounter (statuses as of 12/25/2021) [facility] of Past illness Narrative* Problem Noted [...] get beds in local hospital, transferred to [facility]. 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 Patient had her eyes examined in [place] this year and was told that she had no retinopathy. 2014, Anitha 7.5, she has been running around that [...] of this encounter (statuses as of 12/27/2021) [facility] of Past illness Narrative* Problem Noted [...] get beds in local hospital, transferred to [facility]. 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 Patient had her eyes examined in [place] this year and was told that she [...] of this encounter (statuses as of 12/27/2021) [facility] of Past illness Narrative* Problem Noted [...] get beds in local hospital, transferred to [facility]. 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 Patient had her eyes examined in [place] this year and was told that she [...] of this encounter (statuses as of 12/29/2021) [facility] of Past illness Narrative* Problem Noted [...] get beds in local hospital, transferred to [facility]. 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 Patient had her eyes examined in [place] this year and was told that she [...] of this encounter (statuses as of 01/01/2022) [facility] Past illness Narrative* Problem Noted [...] get beds in local hospital, transferred to [facility]. 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 Patient had her eyes examined in [place] this year and was told that she [...] of this encounter (statuses as of 01/03/2022) [facility] illness Narrative* Problem Noted [...] get beds in local hospital, transferred to [facility]. 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 Patient had her eyes examined in [place] this year and was told that she [...] of this encounter (statuses as of 01/07/2022) [facility] Narrative* Problem Noted [...] get beds in local hospital, transferred to [facility]. 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 Patient had her eyes examined in [place] this year and was told that she [...] of this encounter (statuses as of 01/09/2022) [facility] Narrative* Problem Noted [...] get beds in local hospital, transferred to [facility]. 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 Patient had her eyes examined in [place] this year and was told that she [...] of this encounter (statuses as of 01/09/2022) [facility] Narrative* Problem Noted [...] get beds in local hospital, transferred to [facility]. 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 Patient had her eyes examined in [place] this year and was told that she [...] of this encounter (statuses as of 01/10/2022) [facility] Narrative* Problem Noted [...] get beds in local hospital, transferred to [facility]. 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 Patient had her eyes examined in [place] this year and was told that she [...] of this encounter (statuses as of 01/15/2022) [facility] Narrative* Problem Noted [...] get beds in local hospital, transferred to [facility]. 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 Patient had her eyes examined in [place] this year and was told that she [...] of this encounter (statuses as of 01/16/2022) [facility] Narrative* Problem Noted [...] get beds in local hospital, transferred to [facility]. 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 Patient had her eyes examined in [place] this year and was told that she [...] of this encounter (statuses as of 01/20/2022) [facility] Narrative* Problem Noted [...] get beds in local hospital, transferred to [facility]. 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 Patient had her eyes examined in [place] this year and was told that she [...] of this encounter (statuses as of 01/21/2022) [facility] Narrative* Problem Noted [...] get beds in local hospital, transferred to [facility]. 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 Patient had her eyes examined in [place] this year and was told that she [...] of this encounter (statuses as of 01/23/2022) [facility] Narrative* Problem Noted [...] get beds in local hospital, transferred to [facility]. 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 Patient had her eyes examined in [place] this year and was told that she [...] of this encounter (statuses as of 02/09/2022) [facility] Narrative* Problem Noted [...] get beds in local hospital, transferred to [facility]. 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 Patient had her eyes examined in [place] this year and was told that she [...] of this encounter (statuses as of 02/20/2022) [facility] Narrative* Problem Noted [...] get beds in local hospital, transferred to [facility]. 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 Patient had her eyes examined in [place] this year and was told that she [...] of this encounter (statuses as of 02/23/2022) [facility] Author Dianne Haskinswindom [facility] hospitalm[facility] Note Date/Time January 11, 2025 12:3 0pm [facility] Medical Records Department [address] [place] [address] Instructions for Home/Discharge Instructions 01/11/25 1226 MR#: [id number] Acct: [id number] Name: VERÓNICATAMERA MARTINSRA RUBIN Rep #:[id number] : 1945 79 From: Dianne Stovall DO PCP: JARRDO Cantu Status:ADM I N Discharge Instructions Diet Discharge Diet: 1800 Calorie Control Diet DC O2, CPAP, BIPAP needs Home O2 Discharge instructions: No Dressing / Incision Discharge Activity: Return to Normal Activity Weight Bearing Status: Full weight bearing Follow Up Care Test Results: Test results from this visit will be discussed in further detail at your follow- up appointment, if applicable. Discharge Plan Admission Admit Date/Time: 01/07/25 16:29 Primary Reason for Your Visit: chf Attending Provider: Dianne Stovall Primary Care Provider: Deysi Collazo NP Consulting Providers: Radha Heller; Jeremy Mcgarry Discharge Orders/Prescriptions Prescriptions: New potassium chloride 10 mEq Tablet,Er Particles/Crystals 20 meq PO DAILYCM Qty: 60 0RF bumetanide 2 mg tablet 2 mg PO BID Qty: 60 0RF metolazone 5 mg tablet 5 mg PO DAILY Qty: 30 0RF Continued metoprolol succinate 25 mg tablet extended release 24 hr 50 mg PO BID Patient Comments: TAKE 1 TABLET BY MOUTH EVERY DAY aspirin 81 mg capsule 81 mg PO DAILY clopidogrel 75 mg tablet 75 mg PO DAILY ferrous sulfate [Feosol] 325 mg (65 mg iron) tablet 325 mg PO DAILY atorvastatin 40 mg tablet 40 mg PO DAILY pantoprazole 40 mg tablet,delayed release (DR/EC) 40 mg PO BID psyllium 3.4 gram/5.8 gram powder 3.4 g PO BID spironolactone 25 mg tablet 12.5 mg PO BID Discontinued furosemide 20 MG tablet 40 mg PO BID metolazone 2.5 mg tablet 2.5 mg PO DAILY PRN (Reason: edema) potassium chloride 10 mEq tablet extended release 10 meq PO DAILY Referrals / Follow Up: Jeremy Mcgarry MD [Med Staff - Consulting] - In 1 Week (Call the office to confirm an appointment next week) Juan Diego Huynh MD [Med Staff - Active Staff] - See Referral Note (February 05, 2025 at 9 AM, please arrive 15 minutes early to fill out paperwork) Mars Hernandez MD [Non-Staff] - Deysi Collazo NP, BACK TENDER CYLINDER-C [Primary Care Provider] - Disposition Disposition (needs filled in before D/C Order can be placed): Home, Self Care 01/11/25 1230<Electronically signed by Dianne Stovall DO>Dianne Stovall DO CC: JARROD Collazo; Dr. Jeremy Mcgarry MD; Dr. Radha Heller MD ~ Signed [facility] Work Phone: Evaluation note* Diagnosis PAD (peripheral artery disease) (HCC)- Primary Peripheral vascular disease, unspecified Anemia due to chronic illness Anemia of other chronic disease Atrial fibrillation, unspecified type (HCC) [facility] Diagnosis PAD (peripheral artery disease) (HCC)- Primary Peripheral vascular disease, unspecified PVD (peripheral vascular disease) (HCC) Peripheral vascular disease, unspecified Atrial fibrillation, unspecified type (HCC) [facility] Diagnosis Renal mass, right- Primary Unspecified [...] unspecified type (HCC) documented in this encounter [facility] note* Diagnosis Anemia, unspecified type- Primary Atrial fibrillation, unspecified type (HCC) documented in this encounter [facility] note* Diagnosis Anemia, blood loss- Primary Iron [...] unspecified type (HCC) documented in this encounter [facility] note* Diagnosis Acute blood loss anemia Acute posthemorrhagic anemia Heme + stool Nonspecific abnormal finding in stool contents Epigastric pain Abdominal pain, epigastric Atrial fibrillation, unspecified type (HCC) documented in this encounter [facility] noteNo assessment information availableWCleveland Clinic [facility] Work Phone: Evaluation note* Diagnosis Heme positive stool- Primary Nonspecific abnormal finding in stool contents Blood loss anemia Iron deficiency anemia secondary to blood loss (chronic) Atrial fibrillation, unspecified type (HCC) documented in this encounter [facility] note* Diagnosis Atrial fibrillation, unspecified type (HCC)- Primary Gastrointestinal hemorrhage, unspecified gastrointestinal hemorrhage type Anemia due to chronic blood loss Iron deficiency anemia secondary to blood loss (chronic) Other fatigue SOB (shortness of breath) Shortness of breath documented in this encounter [facility] note* Diagnosis Atrial fibrillation, unspecified type (HCC)- Primary Presence of Watchman left atrial appendage closure device Herpes zoster without complication Herpes zoster without mention of complication documented in this encounter [facility] note* Diagnosis Paroxysmal atrial fibrillation (HCC)- Primary Atrial fibrillation documented in this encounter [facility] note* Diagnosis Paroxysmal atrial fibrillation (HCC)- Primary Atrial fibrillation Presence of Watchman left atrial appendage closure device documented in this encounter [facility] note* Diagnosis Rectal bleeding- Primary Hemorrhage of rectum and anus Anemia, blood loss Iron deficiency anemia secondary to blood loss (chronic) Diarrhea, unspecified type documented in this encounter [facility] note* Diagnosis Longstanding persistent atrial fibrillation (HCC)- Primary Presence of Watchman left atrial appendage closure device documented in this encounter [facility] note* Diagnosis Acute combined systolic and diastolic [...] Unspecified essential hypertension documented in this encounter [facility] note* Diagnosis History of prosthetic aortic valve [...] of cerebral infarction [facility] Diagnosis Right renal mass Unspecified disorder of kidney and ureter [facility]* Diagnosis Paroxysmal atrial fibrillation (HCC) Atrial fibrillation Presence of Watchman left atrial appendage closure device [facility] Diagnosis Hospital discharge follow-up- Primary [...] blood loss (chronic) [facility] Diagnosis 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 Other specified intestinal malabsorption [facility] Diagnosis 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 Neoplasm of uncertain behavior of kidney and ureter Iron 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) Stage 3b chronic kidney disease (HCC) [facility] [...] specified intestinal malabsorption [facility] Diagnosis Iron 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- Primary Chronic renal failure, stage 3b (HCC) [facility] Primary hypertension Unspecified essential hypertension [facility] Diagnosis H/O rheumatic heart disease- Primary [...] vascular disease, unspecified [facility] Diagnosis Lung nodule, solitary- Primary Solitary pulmonary nodule [facility] Diagnosis Heme + stool Nonspecific abnormal finding in stool contents Epigastric pain Abdominal pain, epigastric Blood loss anemia Iron deficiency anemia secondary to blood loss (chronic) [facility] Diagnosis History of prosthetic aortic valve [...] pacemaker in situ PAD (peripheral artery disease) (HCC) Peripheral vascular disease, unspecified Hyperlipidemia with target LDL less than 70 Other and unspecified hyperlipidemia [facility] Diagnosis Primary hypertension Unspecified essential hypertension [facility] Diagnosis S/P placement of cardiac pacemaker- [...] pulmonary nodule Chronic renal failure, stage 3b ([facility]) Gastroesophageal reflux disease without esophagitis Esophageal reflux [...] without long-term current use of insulin (HCC) [facility] Diagnosis Bilateral carotid artery stenosis- Primary Occlusion and stenosis of carotid artery without mention of cerebral infarction 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) 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 arteries of the extremities with intermittent claudication [...] Diagnosis PVD (peripheral vascular disease) with claudication ([facility])- Primary Peripheral vascular disease, unspecified documented in [...] systolic and diastolic CHF (congestive heart failure) ([facility])- Primary Chronic combined systolic and diastolic heart failure Dilated cardiomyopathy (HCC) Other primary cardiomyopathies [facility] Diagnosis SSS (sick sinus syndrome) ([facility])- Primary Sinoatrial node dysfunction Paroxysmal atrial fibrillation (HCC) Atrial fibrillation S/P placement of cardiac pacemaker Cardiac pacemaker in situ Chronic combined systolic and diastolic CHF (congestive heart failure) ([facility]) Chronic combined systolic and diastolic heart failure [...] vitamin D deficiency [facility] Diagnosis Borderline anemia- Primary Acute systolic congestive heart failure (HCC) Acute systolic heart failure [facility] Diagnosis Acute systolic CHF (congestive heart failure) ([facility])- Primary Acute systolic heart failure Rheumatic tricuspid valve regurgitation Diseases of tricuspid valve Diuresis excessive Polyuria 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) Chronic combined systolic and diastolic heart failure Dilated cardiomyopathy (HCC) Other primary cardiomyopathies Longstanding persistent atrial fibrillation ([facility]) SSS (sick sinus syndrome) ([facility]) Sinoatrial node dysfunction S/P placement of cardiac pacemaker Cardiac pacemaker in situ Acute hip pain, right Piriformis syndrome, right Bilateral knee effusions Effusion of lower leg joint Primary osteoarthritis of both knees Primary localized osteoarthrosis, lower leg [facility] Diagnosis Acute HFrEF (heart failure with reduced ejection fraction) ([facility])- Primary VHD (valvular heart disease) Endocarditis, valve unspecified, unspecified cause Nonrheumatic tricuspid valve regurgitation Tricuspid valve disorders, specified as nonrheumatic Nonrheumatic mitral valve regurgitation Persistent atrial fibrillation (HCC) Atrial fibrillation Pacemaker Cardiac pacemaker in situ [facility] Diagnosis Venous insufficiency- Primary Unspecified venous (peripheral) insufficiency [facility] Diagnosis Venous insufficiency- Primary Unspecified venous (peripheral) insufficiency [facility] Diagnosis Iron 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- Primary Iron malabsorption Other specified intestinal malabsorption [facility] Diagnosis Acute systolic CHF (congestive heart failure) ([facility])- Primary Acute systolic heart failure Hyponatremia Hyposmolality and/or hyponatremia Hypokalemia Hypopotassemia [facility] Diagnosis Chronic diastolic congestive heart failure (HCC)- Primary Chronic diastolic heart failure Primary hypertension Unspecified essential hypertension SSS (sick sinus syndrome) (HCC) Sinoatrial node dysfunction Longstanding persistent atrial fibrillation (HCC) Acute systolic CHF (congestive heart failure) (HCC) Acute systolic heart failure [facility] Diagnosis URI, acute- Primary Acute upper respiratory infections of unspecified site [facility] Diagnosis History of prosthetic aortic valve replacement- Primary Heart valve replaced by other means H/O rheumatic heart disease Personal history of other diseases of circulatory system Longstanding persistent atrial fibrillation (HCC) Ascending aorta dilatation (HCC) Thoracic aortic ectasia Dilated cardiomyopathy (HCC) Other primary cardiomyopathies Aortic prosthetic valve regurgitation, subsequent encounter Chronic diastolic (congestive) heart failure (HCC) SSS (sick sinus syndrome) ([facility]) Sinoatrial node dysfunction Primary hypertension Unspecified essential hypertension Hyperlipidemia with target LDL less than 70 Other and unspecified hyperlipidemia S/P placement of cardiac pacemaker Cardiac pacemaker in situ PAD (peripheral artery disease) ([facility]) Peripheral vascular disease, unspecified Acute systolic CHF (congestive heart failure) ([facility]) Acute systolic heart failure [facility] Diagnosis Chronic diastolic congestive heart failure (HCC)- Primary Chronic diastolic heart failure [facility]* Diagnosis Chronic kidney disease, unspecified CKD stage- Primary [facility]* Diagnosis SOB (shortness of breath)- Primary [...] Coronary atherosclerosis of unspecified type of vessel, shosh[place]bann[place] or graft SUMMARY Hyperlipidemia LDL goal < [...] systolic heart failure [facility] Diagnosis SOB (shortness of breath)- Primary [...] Coronary atherosclerosis of unspecified type of vessel, sh[place] or graft SUMMARY Hyperlipidemia LDL goal < [...] healing, subsequent encounter [facility]* Diagnosis SOB (shortness of breath)- Primary [...] Coronary atherosclerosis of unspecified type of vessel, sh[place] or graft SUMMARY Hyperlipidemia LDL goal < [...] right middle finger [facility]* Diagnosis SOB (shortness of breath)- Primary [...] Coronary atherosclerosis of unspecified type of vessel, sh[place] or graft SUMMARY Hyperlipidemia LDL goal < [...] of left side [facility] Diagnosis SOB (shortness of breath)- Primary [...] examination at a health care facility Diabetes ([facility]) Type II or unspecified type diabetes mellitus without mention of complication, not stated as uncontrolled HTN (hypertension) Unspecified essential hypertension Basal cell carcinoma Basal cell carcinoma of skin, site unspecified CAD (coronary artery disease) Coronary atherosclerosis of unspecified type of vessel, shosh[place]bann[place] or graft SUMMARY Hyperlipidemia LDL goal < [...] of cerebral infarction PAD (peripheral artery disease) ([facility]) Peripheral vascular disease, unspecified Type 2 diabetes [...] Unspecified essential hypertension SSS (sick sinus syndrome) ([facility]) Sinoatrial node dysfunction Longstanding persistent atrial fibrillation ([facility]) documented in this encounter [facility] note* Diagnosis SOB (shortness of breath)- Primary [...] Coronary atherosclerosis of unspecified type of vessel, sh[place] or graft SUMMARY Hyperlipidemia LDL goal < [...] Other follow-up examination [facility] Diagnosis SOB (shortness of breath)- Primary [...] disorder of skin and subcutaneous tissue A-fib ([facility])- Primary Atrial fibrillation Chronic anticoagulation Long-term (current) use of anticoagulants Routine health maintenance Routine general medical examination at a health care facility Diabetes ([facility]) Type II or unspecified type diabetes mellitus without mention of complication, not stated as uncontrolled HTN (hypertension) Unspecified essential hypertension Basal cell carcinoma Basal cell carcinoma of skin, site unspecified CAD (coronary artery disease) Coronary atherosclerosis of unspecified type of vessel, shosh[place]bann[place] or graft SUMMARY Hyperlipidemia LDL goal < 70 Other and unspecified hyperlipidemia Peripheral vascular disease Peripheral vascular disease, unspecified Diabetes ([facility])- Primary Type II or unspecified type diabetes [...] fistula Pedro aneurysm of anterior communicating artery ([facility]) Subarachnoid hemorrhage Bilateral carotid artery stenosis Occlusion and stenosis of carotid artery without mention of cerebral infarction PAD (peripheral artery disease) Peripheral vascular disease, unspecified Type 2 diabetes mellitus without complication, without long-term current use of insulin ([facility]) Gastroesophageal reflux disease without esophagitis Esophageal reflux Other persistent atrial fibrillation ([facility]) Ascending aorta dilatation Thoracic aortic ectasia Stage 3 chronic renal impairment associated with type 2 diabetes mellitus ([facility]) Type II or unspecified type diabetes mellitus with renal manifestations, not stated as uncontrolled Chronic anticoagulation Long-term (current) use of anticoagulants History of prosthetic aortic valve replacement Heart valve replaced by other means Essential hypertension Unspecified essential hypertension Renal mass, right Unspecified disorder of kidney and ureter Acute pulmonary embolism, unspecified pulmonary embolism type, unspecified whether acute cor pulmonale present ([facility]) Gastrointestinal hemorrhage, unspecified gastrointestinal hemorrhage type Iron deficiency anemia, unspecified iron deficiency anemia type Paroxysmal atrial fibrillation ([facility]) Atrial fibrillation Stage 3 chronic renal impairment associated with type 2 diabetes mellitus ([facility]) Type II or unspecified type diabetes mellitus with renal manifestations, not stated as uncontrolled Chronic diastolic congestive heart failure ([facility])- Primary Chronic diastolic heart failure Primary hypertension Unspecified essential hypertension SSS (sick sinus syndrome) (HCC) Sinoatrial node dysfunction Longstanding persistent atrial fibrillation (HCC) Stage 3b chronic kidney disease ([facility]) [facility] Diagnosis SOB (shortness of breath)- Primary [...] Coronary atherosclerosis of unspecified type of vessel, shosh[place]-bann[place] or graft SUMMARY Hyperlipidemia LDL goal < [...] of cerebral infarction [facility] Diagnosis SOB (shortness of breath)- Primary [...] Coronary atherosclerosis of unspecified type of vessel, shosh[place]-bann[place] or graft SUMMARY Hyperlipidemia LDL goal < [...] diastolic heart failure [facility] Diagnosis SOB (shortness of breath)- Primary [...] Coronary atherosclerosis of unspecified type of vessel, shosh[place]-bann[place] or graft SUMMARY Hyperlipidemia LDL goal < [...] insufficiency of intestine [facility] Diagnosis SOB (shortness of breath)- Primary [...] Coronary atherosclerosis of unspecified type of vessel, shosh[place] or graft SUMMARY Hyperlipidemia LDL goal < [...] atrial fibrillation (HCC) [facility] Diagnosis SOB (shortness of breath)- Primary [...] Coronary atherosclerosis of unspecified type of vessel, shosh[place]-bann[place] or graft SUMMARY Hyperlipidemia LDL goal < [...] insufficiency of intestine [facility] Diagnosis SOB (shortness of breath)- Primary [...] Coronary atherosclerosis of unspecified type of vessel, shosh[place]-bann[place] or graft SUMMARY Hyperlipidemia LDL goal < [...] and unspecified hyperlipidemia [facility] Diagnosis Onset Date Resolution Status Admit Date CHF exacerbation acute January 4:29pm [facility] Work Phone: History and physical note Author Radha Heller [facility] Note Date/Time January 07, 2025 4:35p m [facility] Medical Records Department [address] [place] [id number] H&P Exam - Hospitalist 01/07/25 1629 MR#: [id number] Acct: [id number] Name: BERTA SANCHES Rep #:[id number] : 1945 79 From: Radha Heller MD PCP: JARROD Cantu Status:REG E R Location: ED HPI - General General Date of Admission: 01/07/25 Date of Service: 01/07/25 Chief Complaint: Increased shortness of breath and swelling HPI Narrative BERTA SANCHES, is a 79-year-old female history of hypertension, diabetes, pacemaker, AV replacement, A-fib status post Watchman device, congestive heart failure presented [facility] ED 01/07/2025 with several weeks of shortness of breath and bilateral lower extremity edema. Reportedly in September 2023 she had surgery in [place] for some kind of intra-abdominal artery blockageand was placed on Plavix and aspirin and was having difficulties with her heart failure at that time. She came home at the end of October and has been taking herLasix 40 twice daily and spironolactone 12.5 mg twice daily without improvement. She recently followed with her [facility] flosser with increase in her Lasix by mouth but has not had improvement. Patient is having somewhat shortness of breath on exertion that she is having difficulty with her ADLs and notes her legs feel so tight and swollen that she has difficulty bending over tochange her close/completing ADLs. In the ED temperature 97.7, heart rate 78 with blood pressure 135/57, respiratory rate 16 and pulse ox 100% on room air. BMP revealed sodium of 129 with last value of 132 in 2020, BUN 47 creatinine of 1.77, last creatinine in our system in 2020 was 1.65. CBC with hemoglobin of 9.4 and pro BNP 10,409. First troponin of 71 with repeat of 68 and chest x-ray with evidence of fluid overload. Hospitalist contacted for admission for heart failure exacerbation. Pt evaluated at bedside. She reports history as above with increasing shortness of breath and lower extremity swelling over the past couple weeks to the point that she is having difficulty with her ADLs now, increased Lasix on an outpatient basis did not improve, has a little bit of a chronic cough from drainage but denies any fevers, no chest pain, no bowel or bladder changes. ROS otherwise negative [facility] Medical History Anxiety Brain aneurysm Bronchospasm with bronchitis, acute Cardiac arrhythmia Chest pain, musculoskeletal CHF exacerbation Diabetes Diabetes mellitus type 2 in obese Family history of brain aneurysm Fever Heart disease History of cancer HLD (hyperlipidemia) HTN (hypertension) Laceration of right middle finger Obesity (BMI 30.0-34.9) PAD (peripheral artery disease) PAF (paroxysmal atrial fibrillation) Skin cancer Skin tear of left forearm without complication URI (upper respiratory infection) Home Medications ?Medication ?Instructions ?Recorded ?Last Taken ?Type rivaroxaban 20 mg tablet 15 mg PO DAILY blood thinner 07/13/15 03/23/19 History simvastatin 40 mg tablet 20 mg PO QHS cholesterol 03/2003/23/19 History furosemide 20 mg tablet 20 mg PO DAILY diuretic 11/0203/24/19 History lisinopril 40 mg tablet 20 mg PO DAILY blood pressur e 12/02/17 03/24/19 History amlodipine 10 mg tablet 5 mg PO BID 03/24/19 9 History coenzyme Q10 100 mg capsule 100 mg PO DAILY 03/24/19 0 03/23/19 History magnesium oxide 200 mg PO DAILY 02/13/21 Unk nown History metoprolol succinate 25 mg 25 mg PO DAILY 02/13/21 Unk nown History tablet,extended release 24 hr cephalexin 500 mg capsule 500 mg PO TID #15 caps 02/27 Unknown Rx aspirin 81 mg capsule 81 mg PO DAILY 01/07/25 Unkn own History clopidogrel 75 mg tablet 75 mg PO DAILY 01/07/25 Unkn own History ferrous sulfate 325 mg (65 mg 325 mg PO DAILY 01/07/25 Unknown History iron) tablet (Feosol) Allergy/AdvReac Type Severity Reaction Status Date / Time propofol AdvReac Mild Low blood Verified 01/07/25 12:47 pressure Family History Father Heart disease High cholesterol Mother Heart disease Surgical History H/O aortic valve replacement history bilateral ear surgeries History of hysterectomy history skin cancer surgery Social History Smoking Status: Never smoker alcohol intake: current alcohol intake frequency: a few times a month substance use type: does not use ROS ROS Narrative General: Denies fever/chills HENT: Denies headache, denies stuffy nose, denies sore throat EYES: Denies changes in vision Resp: Gets a little bit of cough with drainage, increased shortness of breath Cardiac: Denies chest pain GI: Denies abdominal pain, denies changes in bowel, denies nausea/vomiting : Denies changes in urination Extremity: Increased swelling lower extremities up to her hips MSK: Denies weakness Neuro: Denies any numbness/tingling Heme: Denies any bleeding or bruising Skin: Denies rashes Psychiatric: No complaints voiced Vital Signs Vital Signs Vital Signs: 01/07/25 12:47 01/07/25 13:28 01/07/25 13:28 Temperature 97.7 F L Temperature Source Oral Pulse Rate 78 Respiratory Rate 16 18 Respiratory Effort Respiratory Depth Respiratory Pattern Blood Pressure 135/57 H Blood Pressure Mean 83 Pulse Ox 100 100 95 Oxygen Delivery Method Room Air Room Air Room Air 01/07/25 13:31 01/07/25 13:47 01/07/25 14:00 Temperature Temperature Source Pulse Rate 81 81 Respiratory Rate 17 16 Respiratory Effort Normal Short of Breath Respiratory Depth Normal Respiratory Pattern Tachypnea Blood Pressure 148/61 H 148/61 H Blood Pressure Mean 90 90 Pulse Ox 100 100 Oxygen Delivery Method Room Air Room Air Room Air 01/07/25 15:23 01/07/25 16:03 01/07/25 16:28 Temperature 97.7 F L Temperature Source Pulse Rate 75 80 75 Respiratory Rate 13 19 H 19 H Respiratory Effort Respiratory Depth Respiratory Pattern Blood Pressure 146/67 H 158/56 H Blood Pressure Mean 93 90 Pulse Ox 100 100 100 Oxygen Delivery Method Room Air Room Air Weight Weight: 70.488 kg Body Mass Index (BMI) 27.5 Physical Exam Narrative General: Alert, oriented HEENT: Atraumatic, normocephalic Eyes: Anicteric, normal conjunctiva, extraocular movements grossly intact Neck: Supple Respiratory: Crackles at the bases bilaterally, patient just got back from ambulating to bathroom and is tachypneic with increased work of breathing Cardiovascular: Irregularly irregular GI: Soft, nontender, nondistended Extremities: 1+ edema all the way up to hips Musculoskeletal: Moving all extremities Neuro: No overt focal neurological deficits Skin: No rashes appreciated Psych: Cooperative Results Lab / Micro Data 01/07/25 13:00 01/07/25 13:00 Labs: Laboratory Results - last 24 hr 01/07/25 13:00: WBC 6.3, RBC 3.29 L, Hgb 9.4 L, Hct 29.6 L, MCV 90.0, MCH 28.6, MCHC 31.8 L, RDW Std Deviation 65.6 H, RDW Coeff of Yonis 19.9 H, Plt Count 165, MPV 9.6, Immature Gran % (Auto) 0.300, Neut % (Auto) 59.8, Lymph % (Auto) 24.2, [place] % (Auto) 12.9 H, Eos % (Auto) 1.8, Baso % (Auto) 1.0, Absolute Neuts (auto)3.8, Absolute Lymphs (auto) 1.52, Nucleated RBC % 0, Anisocytosis 1+, Sodium 129L, Potassium 4.2, Chloride 91 L, Carbon Dioxide 23.9, Anion Gap 15, BUN 47 H, Creatinine 1.77 H, Estim Creat Clear Calc 24.26 L, Est GFR (MDRD) Non-Af 29 L, BUN/Creatinine Ratio 26.4 H, Glucose 194 H, Calcium 8.8, Troponin T High Sens 71 H*, [place] [address] H 01/07/25 14:54: Troponin T Hi Sens 2 Hr 68 H* Imaging Radiology Impression Chest X-Ray 01/07/25 13:19 IMPRESSION: Findings consistent with mild congestive heart failure. Reading Location: [facility] Assessment & Plan Assessment/Plan (1) CHF exacerbation: QUALIFIERS: Heart failure type: unspecified Qualified Code(s): I50.9 - Heart failure, unspecified PLAN: Plan #Acute exacerbation of chronic heart failure of unclear subtype -Admit to telemetry -proBNP 10,409 -CXR suggestive of fluid overload -Continue IV lasix -Last echo for 5 years ago -Repeat echo ordered -Daily weights, I's and O's -Fluid restriction, heart healthy diet # Hyponatremia -Sodium of 129, last value several years ago was slightly low at 132 -Suspect this may be due to fluid overload -Will be diuresing as above # Elevated troponin -Initial troponin 71 with repeat of 68 -Suspect this is all secondary to patient's fluid overload -Patient to be monitored on telemetry and echo as above # CKD stage III b - No recent labs in our system but creatinine of 1.77 today is similar to several years ago when her creatinine was 1.65 suspect this is chronic -Avoid nephrotoxic agents -Daily BMPs #Type 2 diabetes mellitus -Glucose checks and sliding scale insulin #Hx SMA occlusion - Back in September, hospitalized for 24 days -Noted - Continue antiplatelet agents once med rec updated/home meds confirmed #Hx afib s/p watchman/AV replacement/pace maker - No longer on anticoagulation -Continue beta-yissel #DVT ppx: Heparin subcu Radha Heller MD Charges/Coding Visit Charges Inpatient E&M: 94252 Init Hosp L2 01/07/25 1635 <Electronically signed by Radha Heller MD> Cosigner Signature (if applicable): CC: JARROD Collazo; Dr. Radha Heller MD~ Signed [facility] Work Phone: Hospital Discharge instructionsAdditional Instructions Date of Discharge: 01/11/25[facility] Work Phone: Reason for referral (narrative)* Diagnostic Procedure Only (Routine) - Closed Specialty Diagnoses / Procedures Referred By Leilani ng Referred To Contact XR IMAGING Diagnoses Ischial bursitis of left side Procedures XR HIP GENERAL 3V PELV/AP/LAT LEFT RADEX HIP UNILATERAL WITH PELVIS 2-3 VIEWS Doreen Le PA-C [address] [place] [address] Xr Imaging Referral ID Status Reason Start Date Expiration Date V isits Requested Visits Authorized [id number] Closed Auto-Generate d Referral 12/15/2021 01/14/2023 1 1 [facility] for referral (narrative)* Outpatient Procedure (Routine) - Pending Review Specialty Diagnoses / Procedures Referred By Leilani ng Referred To Contact [facility] Diagnoses Acute blood loss anemia Heme + stool Epigastric pain Procedures EGD DIAGNOSTIC ESOPHAGOGASTRODUODENOSC OPY TRANSORAL DIAGNOSTIC REFERRAL TO [facility] FINANCIAL COUNSELOR Chai Encinas MD [address] [place] [address] [facility] [address] [place] [address] Referral ID Status Reason Start Date Expiration Date Visits Requested Visits Authorized [id number] Pending Review Auto-Generated Referral 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 OON Notification Letter Patient Cleared - Admin/Commodities Trader/D irector advise to proceed 2 04/01/2022 1 1 [facility] for referral (narrative)* Outpatient Procedure (Routine) - Closed Specialty Diagnoses / Procedures Referred By Leilani ng Referred To Contact Diagnoses Acute blood loss anemia Heme + stool Epigastric pain Procedures EGD DIAGNOSTIC ESOPHAGOGASTRODUODENOSCOPY TRANSORAL DIAGNOSTIC REFERRAL TO [facility] FINANCIAL COUNSELOR Chai Encinas MD [address] [place] [address] [facility] [address] [place] [address] Referral ID Status Reason Start Date Expiration Date Visits Requested Visits Authorized [id number] Closed Auto-Generated Referral 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 OON Notification Letter Patient Cleared - Admin/Commodities Trader/D irector advise to proceed 01/01/2022 07/04/2022 1 1 [facility] for referral (narrative)* Outpatient Procedure (Routine) - Pending Review Specialty Diagnoses / Procedures Referred By Leilani ng Referred To Contact [facility] Diagnoses Paroxysmal atrial fibrillation (HCC) Procedures ECHO TRANSESOPHAGEAL ECHO TRANSESOPHAG R-T 2D W/PRB IMG ACQUISJ I&R Candi Beauchamp APRN.MANAGER REGULATORY [address] [facility] [place] [address] [facility] [place] [address] [place] [address] Referral ID Status Reason Start Date Expiration Date Visits Requested Visits Authorized [id number] Pending Review Auto-Generat ed Referral 01/21/2022 01/21/2023 1 1 * Outpatient Procedure (Routine) - Pending Review Specialty Diagnoses / Procedures Referred By Leilani ng Referred To Contact [facility] Diagnoses Paroxysmal atrial fibrillation (HCC) Procedures ECG COMPLETE ECG ROUTINE ECG W/LEAST 12 LDS W/I&R Candi Beauchamp APRN.MANAGER REGULATORY [address], [email or web address] [address] [place] [address] [facility] [place] [place] [address] Referral ID Status Reason Start Date Expiration Date Visits Requested Visits Authorized [id number] Pending Review Auto-Generat ed Referral 01/21/2022 01/21/2023 1 1 * Outpatient Procedure (Routine) - Pending Review Specialty Diagnoses / Procedures Referred By Contac t Referred To Contact [facility] Diagnoses Paroxysmal atrial fibrillation (HCC) Procedures ECHO TRANSESOPHAGEAL ECHO TRANSESOPHAG R-T 2D W/PRB IMG LINUS I&R Candi Beauchamp APRN.MANAGER REGULATORY [address], [email or web address] [facility] [place] [address] [facility] [address] [place] [address] Referral ID Status Reason Start Date Expiration Date Visits Requested Visits Authorized [id number] Pending Review Auto-Generat ed Referral 01/21/2022 01/21/2023 1 1 [facility] for referral (narrative)* Outpatient Procedure (Routine) - Pending Review Specialty Diagnoses / Procedures Referred By Contac t Referred To Contact [facility] Diagnoses Paroxysmal atrial fibrillation (HCC) Presence of Watchman left atrial appendage closure device Procedures ECHO TRANSESOPHAGEAL ECHO TRANSESOPHAG R-T 2D W/PRB Lawrence BARRIGA I&R Candi Beauchamp APRN.MANAGER REGULATORY [address], [email or web address] [facility] [place] [address] [facility] [address] [address] Referral ID Status Reason Start Date Expiration Date Visits Requested Visits Authorized [id number] Pending Review Auto-Generat ed Referral 02/09/2022 02/09/2023 1 1 * Outpatient Procedure (Routine) - Pending Review Specialty Diagnoses / Procedures Referred By Contac t Referred To Contact [facility] Diagnoses Paroxysmal atrial fibrillation (HCC) Presence of Watchman left atrial appendage closure device Procedures ECG COMPLETE ECG ROUTINE ECG W/LEAST 12 LDS W/I&R Candi Beauchamp APRN.CNP [address], [address] [place] [address] [facility] [place] [address] [place] [address] Referral ID Status Reason Start Date Expiration Date Visits Requested Visits Authorized [id number] Pending Review Auto-Generat ed Referral 02/09/2022 02/09/2023 1 1 * Outpatient Procedure (Routine) - Pending Review Specialty Diagnoses / Procedures Referred By Contac t Referred To Contact [facility] Diagnoses Paroxysmal atrial fibrillation (HCC) Presence of Watchman left atrial appendage closure device Procedures ECHO TRANSESOPHAGEAL ECHO TRANSESOPHAG R-T 2D W/PRB IMG ACQUISJ I&R Candi Beauchamp APRN.CNP [address], [facility] [place] [address] [facility] [place] [address] [place] [address] Referral ID Status Reason Start Date Expiration Date Visits Requested Visits Authorized [id number] Pending Review Auto-Generat ed Referral 02/09/2022 02/09/2023 1 1 [facility] for referral (narrative)* Outpatient Procedure (Routine) - Pending Review Specialty Diagnoses / Procedures Referred By Contac t Referred To Contact [facility] Diagnoses Longstanding persistent atrial fibrillation (HCC) Presence of Watchman left atrial appendage closure device Procedures ECHO TRANSESOPHAGEAL ECHO TRANSESOPHAG R-T 2D W/PRB IMG VIOLAISGlenna I&R Radha Torres APRN.MANAGER REGULATORY [address] [place] [address] [facility] [place] [address] [place] [id number] Referral ID Status Reason Start Date Expiration Date Visits Requested Visits Authorized [id number] Pending Review Auto-Generat ed Referral 03/04/2022 03/04/2023 1 1 [facility] for referral (narrative)* Outpatient Procedure (Routine) - Authorized Specialty Diagnoses / Procedures [facility] To Contact [facility] Diagnoses Aortic prosthetic valve regurgitation, 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) Procedures ECG COMPLETE ECG ROUTINE ECG W/LEAST 12 LDS W/I&R Doreen Le PA-C [address] [place] [address] [address] Referral ID Status Reason Start Date Expiration Date Visits Requested Visits Authorized [id number] Authorized Auto-Generat ed Referral 03/19/2022 03/19/2023 1 1 [facility] for referral (narrative)* Diagnostic Procedure Only (Routine) - Authorized Specialty Diagnoses / Procedures [facility] Referred To Contact US IMAGING Diagnoses Neoplasm of uncertain behavior of right kidney Procedures US KIDNEY/BLADDER US RETROPERITONEAL REAL TIME W/IMAGE COMPLETE Brayan Chicas MD [address] [place] [address] Us Imaging Referral ID Status Reason Start Date Expiration Date Visits Requested Visits Authorized [id number] Authorized Auto-Generat ed Referral 09/02/2022 05/09/2023 1 1 [facility] for referral (narrative)* Outpatient Procedure (Routine) - Authorized Specialty Diagnoses / Procedures [facility] Referred To Contact [facility] Diagnoses History of prosthetic aortic valve replacement H/O rheumatic heart disease Procedures ECHO ECHO TTHRC R-T 2D W/WOM-MODE COMPL SPEC&COLR D Carla Burdick MD [address] [place] [address] [address] [address] [address] Referral ID Status Reason Start Date Expiration Date Visits Requested Visits Authorized [id number] Authorized Auto-Generat ed Referral 03/05/2023 09/28/2023 1 1 [facility] for referral (narrative)* Outpatient Procedure (Routine) - Pending Review Specialty Diagnoses / Procedures Referred By Contac t Referred To Contact [facility] Diagnoses 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HCC) Pain in both lower legs 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) Procedures PVR LEG [facility] NON-INVASIVE PHYSIOLOGIC STUDY EXTREMITY 3 LEVLS Doreen Le PA-C [address] [place] [address] [facility] [address] [address] Referral ID Status Reason Start Date Expiration Date Visits Requested Visits Authorized [id number] Pending Review Auto-Generat ed Referral 01/07/2023 01/07/2024 1 1 * Outpatient Procedure (Routine) - Pending Review Specialty Diagnoses / Procedures Referred By Contac t Referred To Contact [facility] Diagnoses 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HCC) Pain in both lower legs 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) Procedures PVR ANK PRESS [facility] NON-INVAS PHYSIOLOGIC STD EXTREMITY ART 2 LEVEL Doreen Le PA-C [address] [place] [address] [facility] [address] [address] Referral ID Status Reason Start Date Expiration Date Visits Requested Visits Authorized [id number] Pending Review Auto-Generat ed Referral 01/07/2023 01/07/2024 1 1 * Outpatient Procedure (Routine) - Authorized Specialty Diagnoses / Procedures Referred By Contac t Referred To Contact [facility] Diagnoses Bilateral carotid artery stenosis Procedures US CAROTID ARTERIES [facility] DUPLEX SCAN EXTRACRANIAL ART COMPL BI STUDY Doreen Le PA-C [address] [place] [address] [facility] [place] [address] [place] [address] Referral ID Status Reason Start Date Expiration Date Visits Requested Visits Authorized [id number] Authorized Auto-Generat ed Referral 01/07/2023 01/07/2024 1 1 [facility] for referral (narrative)* Diagnostic Procedure Only (Routine) - Closed Specialty Diagnoses / Procedures Referred By Contac t Referred To Contact US IMAGING Diagnoses Neoplasm of uncertain behavior of right kidney Procedures US KIDNEY/BLADDER US RETROPERITONEAL REAL TIME W/IMAGE COMPLETE Brayan Chicas MD [address] [place] [address] [place] [address] Referral ID Status Reason Start Date Expiration Date V isits Requested Visits Authorized [id number] Closed Auto-Generate d Referral 09/02/2022 05/09/2023 1 1 [facility] for referral (narrative)* Outpatient Procedure (Routine) - Authorized Specialty Diagnoses / Procedures Referred By Contac t Referred To Contact [facility] Diagnoses Acute systolic CHF (congestive heart failure) (HCC) Procedures ECHO ECHO TTHRC R-T 2D W/WOM-MODE COMPL SPEC&COLR D Doreen Le PA-C [address] [place] [address] [facility] [address] [address] Referral ID Status Reason Start Date Expiration Date Visits Requested Visits Authorized [id number] Authorized Auto-Generat ed Referral 10/18/2023 10/17/2024 1 1 * Outpatient Procedure (Routine) - Pending Review Specialty Diagnoses / Procedures Referred By Contac t Referred To Contact [facility] Diagnoses Acute systolic CHF (congestive heart failure) (HCC) Procedures ECG COMPLETE ECG ROUTINE ECG W/LEAST 12 LDS W/I&R Doreen Le PA-C [address] [place] [address] [facility] [address] [address] Referral ID Status Reason Start Date Expiration Date Visits Requested Visits Authorized [id number] Pending Review Auto-Generat ed Referral 10/18/2023 10/17/2024 1 1 [facility] for referral (narrative)* Outpatient Procedure (Routine) - Closed Specialty Diagnoses / Procedures Referred By Contac t Referred To Contact [facility] Diagnoses Venous insufficiency Procedures US LEG VEIN DVT [facility] DUP-SCAN XTR VEINS COMPLETE BILATERAL STUDY Lars Silva, [address] [place] [address] [address] Referral ID Status Reason Start Date Expiration Date V isits Requested Visits Authorized [id number] Closed Auto-Generate d Referral 10/14/2023 10/13/2024 1 1 [facility] for referral (narrative)* Diagnostic Procedure Only (Routine) - Closed Specialty Diagnoses / Procedures Referred By Contac t Referred To Contact XR IMAGING Diagnoses Closed nondisplaced fracture of fifth metatarsal bone of right foot with routine healing, subsequent encounter Procedures XR FOOT GENERAL 3V AP/LAT/OBL RIGHT RADEX FOOT COMPLETE MINIMUM 3 VIEWS Doreen Le PA-C [address] [place] [address] [place] [address] Referral ID Status Reason Start Date Expiration Date V isits Requested Visits Authorized [id number] Closed Auto-Generate d Referral 06/01/2023 06/30/2024 1 1 [facility] for referral (narrative)* Diagnostic Procedure Only (Routine) - Closed Specialty Diagnoses / Procedures Referred By Contac t Referred To Contact XR IMAGING Diagnoses Pain of right middle finger Procedures XR DIGIT GENERAL 3V FRONTAL/LAT/OBL RIGHT RADEX FINGR MINIMUM 2 VIEWS Doreen Le PA-C [address] [place] [address] [place] [address] Referral ID Status Reason Start Date Expiration Date V isits Requested Visits Authorized [id number] Closed Auto-Generate d Referral 04/12/2023 05/11/2024 1 1 [facility] for referral (narrative)* Diagnostic Procedure Only (Routine) - Closed Specialty Diagnoses / Procedures Referred By Leilani ng Referred To Contact XR IMAGING Diagnoses Ischial bursitis of left side Procedures XR HIP GENERAL 3V PELV/AP/LAT LEFT RADEX HIP UNILATERAL WITH PELVIS 2-3 VIEWS Doreen Le PA-C [address] [place] [address] [place] [address] Referral ID Status Reason Start Date Expiration Date V isits Requested Visits Authorized [id number] Closed Auto-Generate d Referral 12/15/2021 01/14/2023 1 1 [facility] for referral (narrative)No reason for referral [facility] Work Phone: Reason for visit Narrative* Outpatient Procedure (Routine) - Closed Specialty Diagnoses / Procedures Referred By Leilani ng Referred To Contact Diagnoses Acute blood loss anemia Heme + stool Epigastric pain Procedures EGD DIAGNOSTIC ESOPHAGOGASTRODUODENOSCOPY TRANSORAL DIAGNOSTIC REFERRAL TO [facility] FINANCIAL COUNSELOR Chai Encinas MD [address] [place] [address] [facility] [address] [place] [address] Referral ID Status Reason Start Date Expiration Date Visits Requested Visits Authorized [id number] Closed Auto-Generated Referral 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 OON Notification Letter Patient Cleared - Admin/Commodities Trader/D irector advise to proceed 01/01/2022 07/04/2022 1 1 [facility] for visit Narrative* Diagnostic Procedure Only (Routine) - Closed Specialty Diagnoses / Procedures Referred By Contac t Referred To Contact Laboratory Medicine / LAB COVID TESTING LL Lot Diagnoses Paroxysmal atrial fibrillation PRE-PROCEDURE & PRE-OPERATIVE COVID Paroxysmal atrial fibrillation (HCC) [I48.0] Procedures COVID19 LAB COVID Chandler Swan MD [address] [place] [address] [place] [id number] [place] [address] Referral ID Status Reason Start Date Expiration Date Visits Re quested Visits Authorized [id number] Closed 01/09/2022 07/04/2022 1 1 [facility] for visit Narrative* Diagnostic Procedure Only (Routine) - Closed Specialty Diagnoses / Procedures Referred By [place] Referred [facility] Diagnoses Paroxysmal atrial fibrillation (HCC) Presence of Watchman left atrial appendage closure device Procedures ECHO TRANSESOPHAGEAL ECHO TRANSESOPHAG R-T 2D W/PRB IMG ACQUISJ I&R Candi Beauchamp, EDGE STRIPPER.MANAGER REGULATORY [address] [facility], [address] [place] [address] [facility] [place] [address] [place] [id number] Referral ID Status Reason Start Date Expiration Date V isits Requested Visits Authorized [id number] Closed Auto-Generate d Referral 02/09/2022 07/04/2022 1 1 [facility] for visit Narrative* Diagnostic Procedure Only (Routine) - Closed Specialty Diagnoses / Procedures Referred By Contac t Referred To Contact XR IMAGING Diagnoses Closed nondisplaced fracture of fifth metatarsal bone of right foot with routine healing, subsequent encounter Procedures XR FOOT GENERAL 3V AP/LAT/OBL RIGHT RADEX FOOT COMPLETE MINIMUM 3 VIEWS Doreen Le PA-C [address] [place] [address] Xr Imaging [facility] Referral ID Status Reason Start Date Expiration Date V isits Requested Visits Authorized [id number] Closed Auto-Generate d Referral 06/01/2023 06/30/2024 1 1 [facility] for visit Narrative* Diagnostic Procedure Only (Routine) - Closed Specialty Diagnoses / Procedures Referred By Contac t Referred To Contact XR IMAGING Diagnoses Pain of right middle finger Procedures XR DIGIT GENERAL 3V FRONTAL/LAT/OBL RIGHT RADEX FINGR MINIMUM 2 VIEWS Doreen Le PA-C [address] [place] [address] [place] [address] Referral ID Status Reason Start Date Expiration Date V isits Requested Visits Authorized [id number] Closed Auto-Generate d Referral 04/12/2023 05/11/2024 1 1 [facility] for visit Narrative* Diagnostic Procedure Only (Routine) - Closed Specialty Diagnoses / Procedures Referred By Contac t Referred To Contact XR IMAGING Diagnoses Ischial bursitis of left side Procedures XR HIP GENERAL 3V PELV/AP/LAT LEFT RADEX HIP UNILATERAL WITH PELVIS 2-3 VIEWS Doreen Le PA-C [address] [place] [address] [place] [address] Referral ID Status Reason Start Date Expiration Date V isits Requested Visits Authorized [id number] Closed Auto-Generate d Referral 12/15/2021 01/14/2023 1 1 [facility] Summary Purpose Family History No Family History [...] Documents on File Type Date Recorded Patient Fire Services Plumber Expl anation Advance Directive(s) 02/26/2021 11:31 AM Advance Directive(s) 10/02/2020 4:46 PM Advance Directive(s) 10/24/2019 6:40 PM Advance Directive(s) 07/18/2019 8:41 AM Advance Directive(s) 06/21/2019 9:34 AM Advance Directive(s) 05/04/2019 8:22 AM Advance Directive(s) 03/22/2019 7:15 AM Advance Directive(s) 08/31/2015 1:42 PM Advance Directive(s) 08/20/2015 4:21 PM Documents on File Type Date Recorded Patient Fire Services Plumber Expl anation Advance Directive(s) 02/26/2021 11:31 AM Advance Directive(s) 10/02/2020 4:46 PM Advance Directive(s) 10/24/2019 6:40 PM Advance Directive(s) 07/18/2019 8:41 AM Advance Directive(s) 06/21/2019 9:34 AM Advance Directive(s) 05/04/2019 8:22 AM Advance Directive(s) 03/22/2019 7:15 AM Advance Directive(s) 08/31/2015 1:42 PM Advance Directive(s) 08/20/2015 4:21 PM Documents on File Type Date Recorded Patient Fire Services Plumber Expl anation Advance Directive(s) 12/23/2021 1:13 PM Advance Directive(s) 02/26/2021 11:31 AM Advance Directive(s) 10/02/2020 4:46 PM Advance Directive(s) 10/24/2019 6:40 PM Advance Directive(s) 07/18/2019 8:41 AM Advance Directive(s) 06/21/2019 9:34 AM Advance Directive(s) 05/04/2019 8:22 AM Advance Directive(s) 03/22/2019 7:15 AM Advance Directive(s) 08/31/2015 1:42 PM Advance Directive(s) 08/20/2015 4:21 PM Documents on File Type Date Recorded Patient Fire Services Plumber Expl anation Advance Directive(s) 12/23/2021 1:13 PM Advance Directive(s) 02/26/2021 11:31 AM Advance Directive(s) 10/02/2020 4:46 PM Advance Directive(s) 10/24/2019 6:40 PM Advance Directive(s) 07/18/2019 8:41 AM Advance Directive(s) 06/21/2019 9:34 AM Advance Directive(s) 05/04/2019 8:22 AM Advance Directive(s) 03/22/2019 7:15 AM Advance Directive(s) 08/31/2015 1:42 PM Advance Directive(s) 08/20/2015 4:21 PM Documents on File Type Date Recorded Patient Fire Services Plumber Expl anation Advance Directive(s) 01/02/2022 8:28 AM [...] Will No February 13 6:44pm Power of Fire Boat Engineer No February 13 021 6:44pm Documents on File Type Date Recorded Patient Fire Services Plumber Expl anation Advance Directive(s) 01/02/2022 8:28 AM [...] Comments Full Code Order Discussed With: Patient Advance Directive Response Recorded Date/ Time Do you have a Healthcare Power of Fire Boat Engineer? Yes January 07, 2025 1:29pm Advance Directives No July 13, 2015 4:56pm Advance Directive Response Recorded Date/ Time Do you have a Healthcare Power of Fire Boat Engineer? Yes January 07, 2025 5:54pm Advance Directives No July 13, 2015 4:56pm History of Present Illness * Mars Chung, DO - 01/19/2019 10:00 AM EDT Pertinent [...] atrial fibrillation. Previously seen by me at [facility]. 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 Dr. Washington at [facility] contacted. 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 therapy Moderate mitral regurgitation Mitral valve disorders Status post aortic valve replacement with tissue valve Heart valve replaced by other means Medications Administered Section Inactive Administered Medications - up to 3 most recent administrations Medication Order MAR Action Action Date Dose Rate Site benzocaine 20% 4 [place] (TOPEX) 4 [place], TOPICAL, ONCE, 1 dose, On Wed01/02/22 at [...] for Visit Chief Complaint 2 units PRBC's Chief Complaint Admit Date CHF EXACERBATION January 07, 2025 4:29p m Reason for Visit Admit Date CHF exacerbation January 07, 2025 4:29p m Chief Complaint Admit Date CHF EXACERBATION January 07, 2025 4:29p m CHF EXACERBATION January 08, 2025 6:49p m CHF EXACERBATION January 09, 2025 2:34p m CHF EXACERBATION January 10, 2025 6:23p m Reason for Visit Admit Date MONIQUE (acute kidney injury) January 07, 2025 4:29pm CHF exacerbation January 07, 2025 4:29p m Chronic kidney disease, stage 3b January 4:29pm Health Concerns Infection Onset Date Last Indicated Resolved Time COVID-19 Rule-Out 02/21/2022 02/21/2022 02/22/2022 3:58 AM EDT Reason for Referral Specialty Diagnoses / Procedures Referred By Leilani ng Referred To Contact CT IMAGING Diagnoses Lung nodule, solitary Procedures CT CHEST WO IVCON DIAGNOSTIC COMPUTED TOMOGRAPHY THORAX W/O CNTRST Doreen Le PA-C [address] [place] [address] Ct Imaging Referral ID Status Reason Start Date Expiration Date Visits Requested Visits Authorized [id number] Pending Review Auto-Generat ed Referral 07/07/2022 05/06/2023 1 1 Specialty Diagnoses / Procedures Referred By Leilani t Referred To Contact Hematology Diagnoses Iron deficiency anemia due to chronic blood loss Procedures CONSULT TO HEMATOLOGY OFFICE/OUTPATIENT [facility] MDM 60-74 MINUTES Doreen Le PA-C [address] [place] [address] Referral ID Status Reason Start Date Expiration Date Visits Requested Visits Authorized [id number] Pending Review PCP Requested Referral 04/06/2022 04/06/2023 1 1 Specialty Diagnoses / Procedures Referred By Leilani ng Referred To Contact MR IMAGING Diagnoses 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 Procedures MRA BRAIN WO/W IVCON MRA; HEAD W & WO CONTRAST Doreen Le PA-C [address] [place] [address] Mr Imaging Referral ID Status Reason Start Date Expiration Date Visits Requested Visits Authorized [id number] Pending Review Auto-Generat ed Referral 07/07/2022 08/06/2023 1 1 Specialty Diagnoses / Procedures Referred By Leilani t Referred To Contact Vascular Surgery Diagnoses PVD (peripheral vascular disease) with claudication (HCC) Procedures CONSULT TO VASCULAR SURGERY OFFICE/OUTPATIENT [facility] 60-74 MINUTES Doreen Le PA-C [address] [place] [address] Referral ID Status Reason Start Date Expiration Date Visits Requested Visits Authorized [id number] Pending Review PCP Requested Referral 01/28/2023 01/28/2024 1 1 Specialty Diagnoses / Procedures Referred By Leilani t Referred To Contact CT IMAGING Diagnoses Lung nodule, solitary Procedures CT CHEST WO IVCON DIAGNOSTIC COMPUTED TOMOGRAPHY THORAX W/O CNTRST Doreen Le PA-C [address] [place] [address] [place] [address] Referral ID Status Reason Start Date Expiration Date V isits Requested Visits Authorized [id number] Closed Auto-Generate d Referral 07/07/2022 05/06/2023 1 1 Specialty Diagnoses / Procedures Referred By Leilani ng Referred To Contact Hematology Diagnoses 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 Procedures CONSULT TO HEMATOLOGY OFFICE/OUTPATIENT [facility] MDM 60 MINUTES Doreen Le PA-C [address] [place] [address] Referral ID Status Reason Start Date Expiration Date Visits Requested Visits Authorized [id number] Authorized PCP Requested Referral 11/15/2023 11/14/2024 1 1 Additional Source Comments INFORMATION SOURCE (unrecogn ized section and content) DATE CREATED AUTHOR 12/22/2017 [facility] DATE CREATED AUTHOR AUTHOR'S ORGANIZ ATION 03/09/2019 [facility] DATE CREATED AUTHOR AUTHOR'S ORGANIZ ATION 02/21/2021 [facility] DATE CREATED AUTHOR AUTHOR'S ORGANIZ ATION 11/09/2023 [facility] DATE CREATED AUTHOR AUTHOR'S ORGANIZ ATION 02/09/2024 [facility] DATE CREATED AUTHOR AUTHOR'S ORGANIZ ATION 12/27/2024 [facility] DATE CREATED AUTHOR AUTHOR'S ORGANIZ ATION 01/02/2025 [facility] DATE CREATED AUTHOR AUTHOR'S ORGANIZ ATION 01/19/2025 [facility] Reason for Visit (unrecogniz ed section and content) Reason Comments Non-Chemotherapy Treatment Specialty Diagnoses / Procedures Referred By Leilani t Referred To Contact Diagnoses 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 Procedures IRON SUCROSE INJECTION PER 1 MG Ralph Mujica, DO [address] [place] [address] [facility] [address] [place] [address] Referral ID Status Reason Start Date Expiration Date V isits Requested Visits Authorized [id number] Authorized 04/07/2022 07/04/2022 99 99 Reason Comments Follow Up Specialty Diagnoses / Procedures Referred By Leilani ng Referred To Contact Cardiology / [facility] Diagnoses Follow-up examination 6 month follow up Procedures OFFICE/OUTPATIENT ESTABLISHED MOD MDM 30-39 MIN EST PATIENT Carla Burdick MD [address] [place] [address] Carla Burdick MD [address] [place] [address] Referral ID Status Reason Start Date Expiration Date Visits Re quested Visits Authorized [id number] Closed 03/30/2022 07/04/2022 1 1 Reason Comments [...] ia Specialty Diagnoses / Procedures Referred By Contac t Referred To Contact General Surgery / GENERAL SURGERY Diagnoses Acute posthemorrhagic anemia Acute blood loss anemia [D62] Heme + stool [R19.5] Sludge in gallbladder [K82.8] Epigastric pain [R10.13] Procedures OFFICE/OUTPATIENT NEW MODERATE MDM 45-59 MINUTES NEW DDI PATIENT Doreen Le PA-C [address] [place] [address] Chai Encinas MD [address] [place] [address] Referral ID Status Reason Start Date Expiration Date V isits Requested Visits Authorized [id number] 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 01/01/2022 07/04/2022 1 1 Reason Comments 01-02-2022 [facility] reyes Reason Comments Patient Education EPS-Watchman Reason Comments Rectal Problem Reason Comments Rash blisterlike rash wit h pain & swelling-RIGHT side of face x 2 days Specialty Diagnoses / Procedures Referred By Contac t Referred To Contact Family Practice / FAMILY MEDICINE Diagnoses swelling, tenderness on right side of face near hairline Procedures 4C EST Self, Doreen Jackson, PASammy [address] [place] [address] Referral ID Status Reason Start Date Expiration Date Visits Re quested Visits Authorized [id number] Closed 01/16/2022 07/04/2022 1 1 Reason Onset Date Comments Refill Request 01/19/2022 Reason Comments Patient Question ORDER FOR ABDIEL AND EC G Reason Comments Diarrhea " A few weeks" Specialty Diagnoses / Procedures Referred By Contac t Referred To Contact Family Practice / FAMILY MEDICINE Diagnoses Chronic diarrhea Procedures MYC OFFICE VISIT Self, Doreen Jackson, PASammy [address] [place] [address] Referral ID Status Reason Start Date Expiration Date Visits Re quested Visits Authorized [id number] Closed 02/20/2022 07/04/2022 1 1 Reason Comments Procedure Follow Up EGD completed on 01/02 Reason Onset Date Comments Transition Of Care 02/25/2022 [facility] 02/24/2023 Reason Comments Reminder Call Transesophageal Echo 03/03/22 Specialty Diagnoses / Procedures Referred By Contact Referred To Contact Cardiology / CARDIOVASCULAR MEDICINE Diagnoses Paroxysmal atrial fibrillation Presence of Watchman left atrial appendage closure device Per [facility] Procedures REFERRAL TO [facility] FINANCIAL COUNSELOR EST CLINICIAN Chandler Swan MD [address] [place] [address] Radha Torres APRN.CNP [address] [place] [id number] Referral ID Status Reason Start Date Expiration Date Visits Requested Visits Authorized [id number] 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 [...] MYC OFFICE VISIT Self Doreen Le PA-C [address] [place] [address] Referral ID Status Reason Start Date Expiration Date Visits Re quested Visits Authorized [id number] Closed 03/03/2022 07/04/2022 1 1 Reason Onset Date Comments Transition Of Care 03/20/2022 Tcm readmissi on Reason Onset Date Comments Appointment 03/21/2022 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 Reason Comments Hospital Follow Up Appointment Reason Comments Hospital F/U [facility] D/[facility] Shortness of Breath Reason Comments Appointment [...] CT Specialty Diagnoses / Procedures Referred By Contac t Referred To Contact CT IMAGING Diagnoses Lung nodule, solitary Procedures CT CHEST WO IVCON DIAGNOSTIC COMPUTED TOMOGRAPHY THORAX W/O CNTRST Doreen Le PA-C [address] [place] [address] [place] [address] Referral ID Status Reason Start Date Expiration Date V isits Requested Visits Authorized [id number] Closed Auto-Generate d Referral 07/07/2022 05/06/2023 1 1 Reason Comments Radiology US Specialty Diagnoses / Procedures Referred By Contac t Referred To Contact US IMAGING Diagnoses Neoplasm of uncertain behavior of right kidney Procedures US KIDNEY/BLADDER US RETROPERITONEAL REAL TIME W/IMAGE COMPLETE Brayan Chicas MD [address] [place] [address] [place] [address] Referral ID Status Reason Start Date Expiration Date V isits Requested Visits Authorized [id number] Closed Auto-Generate d Referral 09/02/2022 05/09/2023 1 1 Reason Comments Cough Chest congestion x l ast night Reason Comments Patient Update Reason Comments Leg Edema Reason Comments Results Orders Reason Comments Follow Up 6 month Reason Comments Established Patient Reason Comments Initial Consult HEART FAILURE 19124 Reason Comments Transition Of Care Reason Onset Date Comments ACDoreen CECY RN 11/16/2023 E.D. Utilizat ion Review per Payer Request. Reason Comments Patient Question Reason Comments Hospital Follow Up [facility] follow up dc'd 11/12/23 dx: CHF [...] Follow Up hospital follow up- CHF in [facility] for 23 days, discharged October 28 Reason [...] or prosecute any alcohol or drug abuse patient.[facility] SystemIn the event this information is protected by the Federal Confidentiality of Alcohol and Drug Abuse Patient Records regulations: The Federal rules restrict any use of the information to criminally investigate or prosecute any alcohol or drug abuse patient.[facility] SystemIn the event this information is protected by the Federal Confidentiality of Alcohol and Drug Abuse Patient Records regulations: The Federal rules restrict any use of the information to criminally investigate or prosecute any alcohol or drug abuse patient.[facility] SystemIn the event this information is protected by the Federal Confidentiality of Alcohol and Drug Abuse Patient Records regulations: The Federal rules restrict any use of the information to criminally investigate or prosecute any alcohol or drug abuse patient.[facility] SystemIn the event this information is protected by the Federal Confidentiality of Alcohol and Drug Abuse Patient Records regulations: The Federal rules restrict any use of the information to criminally investigate or prosecute any alcohol or drug abuse patient.[facility] SystemIn the event this information is protected by the Federal Confidentiality of Alcohol and Drug Abuse Patient Records regulations: The Federal rules restrict any use of the information to criminally investigate or prosecute any alcohol or drug abuse patient.[facility] SystemIn the event this information is protected by the Federal Confidentiality of Alcohol and Drug Abuse Patient Records regulations: The Federal rules restrict any use of the information to criminally investigate or prosecute any alcohol or drug abuse patient.[facility] SystemIn the event this information is protected by the Federal Confidentiality of Alcohol and Drug Abuse Patient Records regulations: The Federal rules restrict any use of the information to criminally investigate or prosecute any alcohol or drug abuse patient.[facility] SystemIn the event this information is protected by the Federal Confidentiality of Alcohol and Drug Abuse Patient Records regulations: The Federal rules restrict any use of the information to criminally investigate or prosecute any alcohol or drug abuse patient.[facility] SystemIn the event this information is protected by the Federal Confidentiality of Alcohol and Drug Abuse Patient Records regulations: The Federal rules restrict any use of the information to criminally investigate or prosecute any alcohol or drug abuse patient.[facility] SystemIn the event this information is protected by the Federal Confidentiality of Alcohol and Drug Abuse Patient Records regulations: The Federal rules restrict any use of the information to criminally investigate or prosecute any alcohol or drug abuse patient.[facility] SystemIn the event this information is protected by the Federal Confidentiality of Alcohol and Drug Abuse Patient Records regulations: The Federal rules restrict any use of the information to criminally investigate or prosecute any alcohol or drug abuse patient.[facility] SystemIn the event this information is protected by the Federal Confidentiality of Alcohol and Drug Abuse Patient Records regulations: The Federal rules restrict any use of the information to criminally investigate or prosecute any alcohol or drug abuse patient.[facility] SystemIn the event this information is protected by the Federal Confidentiality of Alcohol and Drug Abuse Patient Records regulations: The Federal rules restrict any use of the information to criminally investigate or prosecute any alcohol or drug abuse patient.[facility] SystemIn the event this information is protected by the Federal Confidentiality of Alcohol and Drug Abuse Patient Records regulations: The Federal rules restrict any use of the information to criminally investigate or prosecute any alcohol or drug abuse patient.[facility] SystemIn the event this information is protected by the Federal Confidentiality of Alcohol and Drug Abuse Patient Records regulations: The Federal rules restrict any use of the information to criminally investigate or prosecute any alcohol or drug abuse patient.[facility] SystemIn the event this information is protected by the Federal Confidentiality of Alcohol and Drug Abuse Patient Records regulations: The Federal rules restrict any use of the information to criminally investigate or prosecute any alcohol or drug abuse patient.[facility] SystemIn the event this information is protected by the Federal Confidentiality of Alcohol and Drug Abuse Patient Records regulations: The Federal rules restrict any use of the information to criminally investigate or prosecute any alcohol or drug abuse patient.[facility] SystemIn the event this information is protected by the Federal Confidentiality of Alcohol and Drug Abuse Patient Records regulations: The Federal rules restrict any use of the information to criminally investigate or prosecute any alcohol or drug abuse patient.[facility] SystemIn the event this information is protected by the Federal Confidentiality of Alcohol and Drug Abuse Patient Records regulations: The Federal rules restrict any use of the information to criminally investigate or prosecute any alcohol or drug abuse patient.[facility] SystemIn the event this information is protected by the Federal Confidentiality of Alcohol and Drug Abuse Patient Records regulations: The Federal rules restrict any use of the information to criminally investigate or prosecute any alcohol or drug abuse patient.[facility] SystemIn the event this information is protected by the Federal Confidentiality of Alcohol and Drug Abuse Patient Records regulations: The Federal rules restrict any use of the information to criminally investigate or prosecute any alcohol or drug abuse patient.[facility] SystemIn the event this information is protected by the Federal Confidentiality of Alcohol and Drug Abuse Patient Records regulations: The Federal rules restrict any use of the information to criminally investigate or prosecute any alcohol or drug abuse patient.[facility] SystemIn the event this information is protected by the Federal Confidentiality of Alcohol and Drug Abuse Patient Records regulations: The Federal rules restrict any use of the information to criminally investigate or prosecute any alcohol or drug abuse patient.[facility] SystemIn the event this information is protected by the Federal Confidentiality of Alcohol and Drug Abuse Patient Records regulations: The Federal rules restrict any use of the information to criminally investigate or prosecute any alcohol or drug abuse patient.[facility] SystemIn the event this information is protected by the Federal Confidentiality of Alcohol and Drug Abuse Patient Records regulations: The Federal rules restrict any use of the information to criminally investigate or prosecute any alcohol or drug abuse patient.[facility] SystemIn the event this information is protected by the Federal Confidentiality of Alcohol and Drug Abuse Patient Records regulations: The Federal rules restrict any use of the information to criminally investigate or prosecute any alcohol or drug abuse patient.[facility] SystemIn the event this information is protected by the Federal Confidentiality of Alcohol and Drug Abuse Patient Records regulations: The Federal rules restrict any use of the information to criminally investigate or prosecute any alcohol or drug abuse patient.[facility] SystemIn the event this information is protected by the Federal Confidentiality of Alcohol and Drug Abuse Patient Records regulations: The Federal rules restrict any use of the information to criminally investigate or prosecute any alcohol or drug abuse patient.[facility] SystemIn the event this information is protected by the Federal Confidentiality of Alcohol and Drug Abuse Patient Records regulations: The Federal rules restrict any use of the information to criminally investigate or prosecute any alcohol or drug abuse patient.[facility] SystemIn the event this information is protected by the Federal Confidentiality of Alcohol and Drug Abuse Patient Records regulations: The Federal rules restrict any use of the information to criminally investigate or prosecute any alcohol or drug abuse patient.[facility] SystemIn the event this information is protected by the Federal Confidentiality of Alcohol and Drug Abuse Patient Records regulations: The Federal rules restrict any use of the information to criminally investigate or prosecute any alcohol or drug abuse patient.[facility] SystemIn the event this information is protected by the Federal Confidentiality of Alcohol and Drug Abuse Patient Records regulations: The Federal rules restrict any use of the information to criminally investigate or prosecute any alcohol or drug abuse patient.[facility] SystemIn the event this information is protected by the Federal Confidentiality of Alcohol and Drug Abuse Patient Records regulations: The Federal rules restrict any use of the information to criminally investigate or prosecute any alcohol or drug abuse patient.[facility] SystemIn the event this information is protected by the Federal Confidentiality of Alcohol and Drug Abuse Patient Records regulations: The Federal rules restrict any use of the information to criminally investigate or prosecute any alcohol or drug abuse patient.[facility] SystemIn the event this information is protected by the Federal Confidentiality of Alcohol and Drug Abuse Patient Records regulations: The Federal rules restrict any use of the information to criminally investigate or prosecute any alcohol or drug abuse patient.[facility] SystemIn the event this information is protected by the Federal Confidentiality of Alcohol and Drug Abuse Patient Records regulations: The Federal rules restrict any use of the information to criminally investigate or prosecute any alcohol or drug abuse patient.[facility] SystemIn the event this information is protected by the Federal Confidentiality of Alcohol and Drug Abuse Patient Records regulations: The Federal rules restrict any use of the information to criminally investigate or prosecute any alcohol or drug abuse patient.[facility] SystemIn the event this information is protected by the Federal Confidentiality of Alcohol and Drug Abuse Patient Records regulations: The Federal rules restrict any use of the information to criminally investigate or prosecute any alcohol or drug abuse patient.[facility] SystemIn the event this information is protected by the Federal Confidentiality of Alcohol and Drug Abuse Patient Records regulations: The Federal rules restrict any use of the information to criminally investigate or prosecute any alcohol or drug abuse patient.[facility] SystemIn the event this information is protected by the Federal Confidentiality of Alcohol and Drug Abuse Patient Records regulations: The Federal rules restrict any use of the information to criminally investigate or prosecute any alcohol or drug abuse patient.[facility] SystemIn the event this information is protected by the Federal Confidentiality of Alcohol and Drug Abuse Patient Records regulations: The Federal rules restrict any use of the information to criminally investigate or prosecute any alcohol or drug abuse patient.[facility] SystemIn the event this information is protected by the Federal Confidentiality of Alcohol and Drug Abuse Patient Records regulations: The Federal rules restrict any use of the information to criminally investigate or prosecute any alcohol or drug abuse patient.[facility] SystemIn the event this information is protected by the Federal Confidentiality of Alcohol and Drug Abuse Patient Records regulations: The Federal rules restrict any use of the information to criminally investigate or prosecute any alcohol or drug abuse patient.[facility] SystemIn the event this information is protected by the Federal Confidentiality of Alcohol and Drug Abuse Patient Records regulations: The Federal rules restrict any use of the information to criminally investigate or prosecute any alcohol or drug abuse patient.[facility] SystemIn the event this information is protected by the Federal Confidentiality of Alcohol and Drug Abuse Patient Records regulations: The Federal rules restrict any use of the information to criminally investigate or prosecute any alcohol or drug abuse patient.[facility] SystemIn the event this information is protected by the Federal Confidentiality of Alcohol and Drug Abuse Patient Records regulations: The Federal rules restrict any use of the information to criminally investigate or prosecute any alcohol or drug abuse patient.[facility] SystemIn the event this information is protected by the Federal Confidentiality of Alcohol and Drug Abuse Patient Records regulations: The Federal rules restrict any use of the information to criminally investigate or prosecute any alcohol or drug abuse patient.[facility] SystemIn the event this information is protected by the Federal Confidentiality of Alcohol and Drug Abuse Patient Records regulations: The Federal rules restrict any use of the information to criminally investigate or prosecute any alcohol or drug abuse patient.[facility] SystemIn the event this information is protected by the Federal Confidentiality of Alcohol and Drug Abuse Patient Records regulations: The Federal rules restrict any use of the information to criminally investigate or prosecute any alcohol or drug abuse patient.[facility] SystemIn the event this information is protected by the Federal Confidentiality of Alcohol and Drug Abuse Patient Records regulations: The Federal rules restrict any use of the information to criminally investigate or prosecute any alcohol or drug abuse patient.[facility] SystemIn the event this information is protected by the Federal Confidentiality of Alcohol and Drug Abuse Patient Records regulations: The Federal rules restrict any use of the information to criminally investigate or prosecute any alcohol or drug abuse patient.[facility] SystemIn the event this information is protected by the Federal Confidentiality of Alcohol and Drug Abuse Patient Records regulations: The Federal rules restrict any use of the information to criminally investigate or prosecute any alcohol or drug abuse patient.[facility] SystemIn the event this information is protected by the Federal Confidentiality of Alcohol and Drug Abuse Patient Records regulations: The Federal rules restrict any use of the information to criminally investigate or prosecute any alcohol or drug abuse patient.[facility] SystemIn the event this information is protected by the Federal Confidentiality of Alcohol and Drug Abuse Patient Records regulations: The Federal rules restrict any use of the information to criminally investigate or prosecute any alcohol or drug abuse patient.[facility] SystemIn the event this information is protected by the Federal Confidentiality of Alcohol and Drug Abuse Patient Records regulations: The Federal rules restrict any use of the information to criminally investigate or prosecute any alcohol or drug abuse patient.[facility] SystemIn the event this information is protected by the Federal Confidentiality of Alcohol and Drug Abuse Patient Records regulations: The Federal rules restrict any use of the information to criminally investigate or prosecute any alcohol or drug abuse patient.[facility] SystemIn the event this information is protected by the Federal Confidentiality of Alcohol and Drug Abuse Patient Records regulations: The Federal rules restrict any use of the information to criminally investigate or prosecute any alcohol or drug abuse patient.[facility] SystemIn the event this information is protected by the Federal Confidentiality of Alcohol and Drug Abuse Patient Records regulations: The Federal rules restrict any use of the information to criminally investigate or prosecute any alcohol or drug abuse patient.[facility] SystemIn the event this information is protected by the Federal Confidentiality of Alcohol and Drug Abuse Patient Records regulations: The Federal rules restrict any use of the information to criminally investigate or prosecute any alcohol or drug abuse patient.[facility] SystemIn the event this information is protected by the Federal Confidentiality of Alcohol and Drug Abuse Patient Records regulations: The Federal rules restrict any use of the information to criminally investigate or prosecute any alcohol or drug abuse patient.[facility] SystemIn the event this information is protected by the Federal Confidentiality of Alcohol and Drug Abuse Patient Records regulations: The Federal rules restrict any use of the information to criminally investigate or prosecute any alcohol or drug abuse patient.[facility] SystemIn the event this information is protected by the Federal Confidentiality of Alcohol and Drug Abuse Patient Records regulations: The Federal rules restrict any use of the information to criminally investigate or prosecute any alcohol or drug abuse patient.[facility] SystemIn the event this information is protected by the Federal Confidentiality of Alcohol and Drug Abuse Patient Records regulations: The Federal rules restrict any use of the information to criminally investigate or prosecute any alcohol or drug abuse patient.[facility] SystemIn the event this information is protected by the Federal Confidentiality of Alcohol and Drug Abuse Patient Records regulations: The Federal rules restrict any use of the information to criminally investigate or prosecute any alcohol or drug abuse patient.[facility] SystemIn the event this information is protected by the Federal Confidentiality of Alcohol and Drug Abuse Patient Records regulations: The Federal rules restrict any use of the information to criminally investigate or prosecute any alcohol or drug abuse patient.[facility] SystemIn the event this information is protected by the Federal Confidentiality of Alcohol and Drug Abuse Patient Records regulations: The Federal rules restrict any use of the information to criminally investigate or prosecute any alcohol or drug abuse patient.[facility] SystemIn the event this information is protected by the Federal Confidentiality of Alcohol and Drug Abuse Patient Records regulations: The Federal rules restrict any use of the information to criminally investigate or prosecute any alcohol or drug abuse patient.[facility] SystemIn the event this information is protected by the Federal Confidentiality of Alcohol and Drug Abuse Patient Records regulations: The Federal rules restrict any use of the information to criminally investigate or prosecute any alcohol or drug abuse patient.[facility] SystemIn the event this information is protected by the Federal Confidentiality of Alcohol and Drug Abuse Patient Records regulations: The Federal rules restrict any use of the information to criminally investigate or prosecute any alcohol or drug abuse patient.[facility] SystemIn the event this information is protected by the Federal Confidentiality of Alcohol and Drug Abuse Patient Records regulations: The Federal rules restrict any use of the information to criminally investigate or prosecute any alcohol or drug abuse patient.[facility] SystemIn the event this information is protected by the Federal Confidentiality of Alcohol and Drug Abuse Patient Records regulations: The Federal rules restrict any use of the information to criminally investigate or prosecute any alcohol or drug abuse patient.[facility] SystemIn the event this information is protected by the Federal Confidentiality of Alcohol and Drug Abuse Patient Records regulations: The Federal rules restrict any use of the information to criminally investigate or prosecute any alcohol or drug abuse patient.[facility] SystemIn the event this information is protected by the Federal Confidentiality of Alcohol and Drug Abuse Patient Records regulations: The Federal rules restrict any use of the information to criminally investigate or prosecute any alcohol or drug abuse patient.[facility] SystemIn the event this information is protected by the Federal Confidentiality of Alcohol and Drug Abuse Patient Records regulations: The Federal rules restrict any use of the information to criminally investigate or prosecute any alcohol or drug abuse patient.[facility] SystemIn the event this information is protected by the Federal Confidentiality of Alcohol and Drug Abuse Patient Records regulations: The Federal rules restrict any use of the information to criminally investigate or prosecute any alcohol or drug abuse patient.[facility] SystemIn the event this information is protected by the Federal Confidentiality of Alcohol and Drug Abuse Patient Records regulations: The Federal rules restrict any use of the information to criminally investigate or prosecute any alcohol or drug abuse patient.[facility] SystemIn the event this information is protected by the Federal Confidentiality of Alcohol and Drug Abuse Patient Records regulations: The Federal rules restrict any use of the information to criminally investigate or prosecute any alcohol or drug abuse patient.[facility] SystemIn the event this information is protected by the Federal Confidentiality of Alcohol and Drug Abuse Patient Records regulations: The Federal rules restrict any use of the information to criminally investigate or prosecute any alcohol or drug abuse patient.[facility] SystemIn the event this information is protected by the Federal Confidentiality of Alcohol and Drug Abuse Patient Records regulations: The Federal rules restrict any use of the information to criminally investigate or prosecute any alcohol or drug abuse patient.[facility] SystemIn the event this information is protected by the Federal Confidentiality of Alcohol and Drug Abuse Patient Records regulations: The Federal rules restrict any use of the information to criminally investigate or prosecute any alcohol or drug abuse patient.[facility] SystemIn the event this information is protected by the Federal Confidentiality of Alcohol and Drug Abuse Patient Records regulations: The Federal rules restrict any use of the information to criminally investigate or prosecute any alcohol or drug abuse patient.[facility] SystemIn the event this information is protected by the Federal Confidentiality of Alcohol and Drug Abuse Patient Records regulations: The Federal rules restrict any use of the information to criminally investigate or prosecute any alcohol or drug abuse patient.[facility] SystemIn the event this information is protected by the Federal Confidentiality of Alcohol and Drug Abuse Patient Records regulations: The Federal rules restrict any use of the information to criminally investigate or prosecute any alcohol or drug abuse patient.[facility] SystemIn the event this information is protected by the Federal Confidentiality of Alcohol and Drug Abuse Patient Records regulations: The Federal rules restrict any use of the information to criminally investigate or prosecute any alcohol or drug abuse patient.[facility] SystemIn the event this information is protected by the Federal Confidentiality of Alcohol and Drug Abuse Patient Records regulations: The Federal rules restrict any use of the information to criminally investigate or prosecute any alcohol or drug abuse patient.[facility] SystemIn the event this information is protected by the Federal Confidentiality of Alcohol and Drug Abuse Patient Records regulations: The Federal rules restrict any use of the information to criminally investigate or prosecute any alcohol or drug abuse patient.[facility] SystemIn the event this information is protected by the Federal Confidentiality of Alcohol and Drug Abuse Patient Records regulations: The Federal rules restrict any use of the information to criminally investigate or prosecute any alcohol or drug abuse patient.[facility] SystemIn the event this information is protected by the Federal Confidentiality of Alcohol and Drug Abuse Patient Records regulations: The Federal rules restrict any use of the information to criminally investigate or prosecute any alcohol or drug abuse patient.[facility] SystemIn the event this information is protected by the Federal Confidentiality of Alcohol and Drug Abuse Patient Records regulations: The Federal rules restrict any use of the information to criminally investigate or prosecute any alcohol or drug abuse patient.[facility] SystemIn the event this information is protected by the Federal Confidentiality of Alcohol and Drug Abuse Patient Records regulations: The Federal rules restrict any use of the information to criminally investigate or prosecute any alcohol or drug abuse patient.[facility] SystemIn the event this information is protected by the Federal Confidentiality of Alcohol and Drug Abuse Patient Records regulations: The Federal rules restrict any use of the information to criminally investigate or prosecute any alcohol or drug abuse patient.[facility] SystemIn the event this information is protected by the Federal Confidentiality of Alcohol and Drug Abuse Patient Records regulations: The Federal rules restrict any use of the information to criminally investigate or prosecute any alcohol or drug abuse patient.[facility] SystemIn the event this information is protected by the Federal Confidentiality of Alcohol and Drug Abuse Patient Records regulations: The Federal rules restrict any use of the information to criminally investigate or prosecute any alcohol or drug abuse patient.[facility] SystemIn the event this information is protected by the Federal Confidentiality of Alcohol and Drug Abuse Patient Records regulations: The Federal rules restrict any use of the information to criminally investigate or prosecute any alcohol or drug abuse patient.[facility] SystemIn the event this information is protected by the Federal Confidentiality of Alcohol and Drug Abuse Patient Records regulations: The Federal rules restrict any use of the information to criminally investigate or prosecute any alcohol or drug abuse patient.[facility] SystemIn the event this information is protected by the Federal Confidentiality of Alcohol and Drug Abuse Patient Records regulations: The Federal rules restrict any use of the information to criminally investigate or prosecute any alcohol or drug abuse patient.[facility] SystemIn the event this information is protected by the Federal Confidentiality of Alcohol and Drug Abuse Patient Records regulations: The Federal rules restrict any use of the information to criminally investigate or prosecute any alcohol or drug abuse patient.[facility] SystemIn the event this information is protected by the Federal Confidentiality of Alcohol and Drug Abuse Patient Records regulations: The Federal rules restrict any use of the information to criminally investigate or prosecute any alcohol or drug abuse patient.[facility] SystemIn the event this information is protected by the Federal Confidentiality of Alcohol and Drug Abuse Patient Records regulations: The Federal rules restrict any use of the information to criminally investigate or prosecute any alcohol or drug abuse patient.[facility] SystemIn the event this information is protected by the Federal Confidentiality of Alcohol and Drug Abuse Patient Records regulations: The Federal rules restrict any use of the information to criminally investigate or prosecute any alcohol or drug abuse patient.[facility] SystemIn the event this information is protected by the Federal Confidentiality of Alcohol and Drug Abuse Patient Records regulations: The Federal rules restrict any use of the information to criminally investigate or prosecute any alcohol or drug abuse patient.[facility] SystemIn the event this information is protected by the Federal Confidentiality of Alcohol and Drug Abuse Patient Records regulations: The Federal rules restrict any use of the information to criminally investigate or prosecute any alcohol or drug abuse patient.[facility] SystemIn the event this information is protected by the Federal Confidentiality of Alcohol and Drug Abuse Patient Records regulations: The Federal rules restrict any use of the information to criminally investigate or prosecute any alcohol or drug abuse patient.[facility] SystemIn the event this information is protected by the Federal Confidentiality of Alcohol and Drug Abuse Patient Records regulations: The Federal rules restrict any use of the information to criminally investigate or prosecute any alcohol or drug abuse patient.[facility] SystemIn the event this information is protected by the Federal Confidentiality of Alcohol and Drug Abuse Patient Records regulations: The Federal rules restrict any use of the information to criminally investigate or prosecute any alcohol or drug abuse patient.[facility] SystemIn the event this information is protected by the Federal Confidentiality of Alcohol and Drug Abuse Patient Records regulations: The Federal rules restrict any use of the information to criminally investigate or prosecute any alcohol or drug abuse patient.[facility] SystemIn the event this information is protected by the Federal Confidentiality of Alcohol and Drug Abuse Patient Records regulations: The Federal rules restrict any use of the information to criminally investigate or prosecute any alcohol or drug abuse patient.[facility] SystemIn the event this information is protected by the Federal Confidentiality of Alcohol and Drug Abuse Patient Records regulations: The Federal rules restrict any use of the information to criminally investigate or prosecute any alcohol or drug abuse patient.[facility] SystemIn the event this information is protected by the Federal Confidentiality of Alcohol and Drug Abuse Patient Records regulations: The Federal rules restrict any use of the information to criminally investigate or prosecute any alcohol or drug abuse patient.[facility] SystemIn the event this information is protected by the Federal Confidentiality of Alcohol and Drug Abuse Patient Records regulations: The Federal rules restrict any use of the information to criminally investigate or prosecute any alcohol or drug abuse patient.[facility] SystemIn the event this information is protected by the Federal Confidentiality of Alcohol and Drug Abuse Patient Records regulations: The Federal rules restrict any use of the information to criminally investigate or prosecute any alcohol or drug abuse patient.[facility] SystemIn the event this information is protected by the Federal Confidentiality of Alcohol and Drug Abuse Patient Records regulations: The Federal rules restrict any use of the information to criminally investigate or prosecute any alcohol or drug abuse patient.[facility] SystemIn the event this information is protected by the Federal Confidentiality of Alcohol and Drug Abuse Patient Records regulations: The Federal rules restrict any use of the information to criminally investigate or prosecute any alcohol or drug abuse patient.[facility] SystemIn the event this information is protected by the Federal Confidentiality of Alcohol and Drug Abuse Patient Records regulations: The Federal rules restrict any use of the information to criminally investigate or prosecute any alcohol or drug abuse patient.[facility] SystemIn the event this information is protected by the Federal Confidentiality of Alcohol and Drug Abuse Patient Records regulations: The Federal rules restrict any use of the information to criminally investigate or prosecute any alcohol or drug abuse patient.[facility] SystemIn the event this information is protected by the Federal Confidentiality of Alcohol and Drug Abuse Patient Records regulations: The Federal rules restrict any use of the information to criminally investigate or prosecute any alcohol or drug abuse patient.[facility] SystemIn the event this information is protected by the Federal Confidentiality of Alcohol and Drug Abuse Patient Records regulations: The Federal rules restrict any use of the information to criminally investigate or prosecute any alcohol or drug abuse patient.[facility] SystemIn the event this information is protected by the Federal Confidentiality of Alcohol and Drug Abuse Patient Records regulations: The Federal rules restrict any use of the information to criminally investigate or prosecute any alcohol or drug abuse patient.[facility] SystemIn the event this information is protected by the Federal Confidentiality of Alcohol and Drug Abuse Patient Records regulations: The Federal rules restrict any use of the information to criminally investigate or prosecute any alcohol or drug abuse patient.[facility] SystemIn the event this information is protected by the Federal Confidentiality of Alcohol and Drug Abuse Patient Records regulations: The Federal rules restrict any use of the information to criminally investigate or prosecute any alcohol or drug abuse patient.[facility] SystemIn the event this information is protected by the Federal Confidentiality of Alcohol and Drug Abuse Patient Records regulations: The Federal rules restrict any use of the information to criminally investigate or prosecute any alcohol or drug abuse patient.[facility] SystemIn the event this information is protected by the Federal Confidentiality of Alcohol and Drug Abuse Patient Records regulations: The Federal rules restrict any use of the information to criminally investigate or prosecute any alcohol or drug abuse patient.[facility] Care Teams (unrecognized sec tion and content) Hide Inspector And Sorter Relationship Specialty Start Date End Date Doreen Le PA-C [address] [place] [address] PCP - General Family Practice 11/26/16 No, Referral Referring 01/31/19 [place] [address] [facility] [place] [place] [id number] [phone] Primary Staff Physician Cardiology 07/15/21 Hide Inspector And Sorter Relationship Specialty Start Date End Date Doreen Le PA-C [address] [place] [address] PCP - General Family Practice 11/26/16 No, Referral Referring 01/31/19 [place] [address] [facility] [place], [place] [id number] [phone] Primary Staff Physician Cardiology 07/15/21 Hide Inspector And Sorter Relationship Specialty Start Date End Date Doreen Le PA-C [address] [place] [address] PCP - General Family Practice 11/26/16 No, Referral Referring 01/31/19 [place] [address] [facility] [place] [id number] [phone] Primary Staff Physician Cardiology 07/15/21 Hide Inspector And Sorter Relationship Specialty Start Date End Date Doreen Le PA-C [address] [place] [address] PCP - General Family Practice 11/26/16 No, Referral Referring 01/31/19 [place] [address] [place], [place] [id number] [phone] Primary Staff Physician Cardiology 07/15/21 Hide Inspector And Sorter Relationship Specialty Start Date End Date Doreen Le PA-C [address] [place] [address] PCP - General Family Practice 11/26/16 No, Referral Referring 01/31/19 [place] [address] [place], [place] [id number] Primary Staff Physician Cardiology 07/15/21 Hide Inspector And Sorter Relationship Specialty Start Date End Date Doreen Le PA-C [address] [place], [place] [address] PCP - General Family Practice 11/26/16 No, Referral Referring 01/31/19 [place] [address] [facility] [place], [place] [id number] Primary Staff Physician Cardiology 07/15/21 Hide Inspector And Sorter Relationship Specialty Start Date End Date Doreen Le PA-C [address] [place], [place] [address] PCP - General Family Practice 11/26/16 No, Referral Referring 01/31/19 [place] [address] [facility] [place] [place] [id number] Primary Staff Physician Cardiology 07/15/21 Hide Inspector And Sorter Relationship Specialty Start Date End Date Doreen Le PA-C [address] [place] [address] PCP - General Family Practice 11/26/16 No, Referral Referring 01/31/19 [place] [address] [place], [place] [id number] [phone] Primary Staff Physician Cardiology 07/15/21 Hide Inspector And Sorter Relationship Specialty Start Date End Date Doreen Le PA-C [address] [place] [address] PCP - General Family Practice 11/26/16 No, Referral Referring 01/31/19 [place] [address] [place], [place] [id number] [phone] Primary Staff Physician Cardiology 07/15/21 Hide Inspector And Sorter Relationship Specialty Start Date End Date Doeren Le PA-C [address] [place] [address] PCP - General Family Practice 11/26/16 No, Referral Referring 01/31/19 [place] [address] [place], [place] [id number] [phone] Primary Staff Physician Cardiology 07/15/21 Hide Inspector And Sorter Relationship Specialty Start Date End Date Doreen Le PA-C [address] [place] [address] PCP - General Family Practice 11/26/16 No, Referral Referring 01/31/19 [place] [address] [place] [address] Primary Staff Physician Cardiology 07/15/21 Hide Inspector And Sorter Relationship Specialty Start Date End Date Doreen Le PA-C [address] [place] [address] PCP - General Family Practice 11/26/16 No, Referral Referring 01/31/19 [place] [address] [facility] [place] [address] Primary Staff Physician Cardiology 07/15/21 Hide Inspector And Sorter Relationship Specialty Start Date End Date Doreen Le PA-C [address] [place] [address] PCP - General Family Practice 11/26/16 No, Referral Referring 01/31/19 [place] [address] [place], [place] [id number] [phone] Primary Staff Physician Cardiology 07/15/21 Hide Inspector And Sorter Relationship Specialty Start Date End Date Doreen Le PA-C [address] [place], [place] [address] PCP - General Family Practice 11/26/16 No, Referral Referring 01/31/19 [place] [address] [place], [place] 0506638 [phone] Primary Staff Physician Cardiology 07/15/21 Hide Inspector And Sorter Relationship Specialty Start Date End Date Doreen Le PA-C [address] [place] [address] PCP - General Family Practice 11/26/16 No, Referral Referring 01/31/19 [place] [address] [place], [place] 6236591 [phone] Primary Staff Physician Cardiology 07/15/21 Hide Inspector And Sorter Relationship Specialty Start Date End Date Doreen Le PA-C [address] [place], [place] 023801 PCP - General Family Practice 11/26/16 No, Referral Referring 01/31/19 [place] [address] [place] [address] Primary Staff Physician Cardiology 07/15/21 Hide Inspector And Sorter Relationship Specialty Start Date End Date Doreen Le PA-C [address] [place] [address] PCP - General Family Practice 11/26/16 No, Referral Referring 01/31/19 [place] [address] [place], [place] 0866024 [phone] Primary Staff Physician Cardiology 07/15/21 Hide Inspector And Sorter Relationship Specialty Start Date End Date Doreen Le PA-C [address] [place], [place] 777251 PCP - General Family Practice 11/26/16 No, Referral Referring 01/31/19 [place] [address] [facility] [place] 726[address]26 Primary Staff Physician Cardiology 07/15/21 Sheridan Cervantes RN Primary Care It Consulting Director 02/25/22 03/27/22 Hide Inspector And Sorter Relationship Specialty Start Date End Date Doreen Le PA-C [address] [place], [place] 050821 PCP - General Family Practice 11/26/16 No, Referral Referring 01/31/19 [place] [address] [place], [place] 8452826 Primary Staff Physician Cardiology 07/15/21 Sheridan Cervantes RN Primary Care It Consulting Director 02/25/22 03/27/22 Carla Burdick MD [address] [place] [address] Cardiology 03/03/22 03/03/22 Carla Burdick MD [address] [place] [address] Primary Staff Physician Cardiology 03/03/22 Hide Inspector And Sorter Relationship Specialty Start Date End Date Doreen Le PA-C [address] [place] [address] PCP - General Family Practice 11/26/16 No, Referral Referring 01/31/19 [place] [address] [place], [place] 3339711 [phone] Primary Staff Physician Cardiology 07/15/21 Sheridan Cervantes RN Primary Care It Consulting Director 02/25/22 03/27/22 Carla Burdick MD [address] [facility], [place] [address] Cardiology 03/03/22 03/03/22 Carla Burdick MD [address] [facility] [place] [address] Primary Staff Physician Cardiology 03/03/22 Hide Inspector And Sorter Relationship Specialty Start Date End Date Doreen Le PA-C [address] [place] [address] PCP - General Family Practice 11/26/16 No, Referral Referring 01/31/19 [place] [address] [place], [place] 3946026 Primary Staff Physician Cardiology 07/15/21 Sheridan Cervantes RN Primary Care It Consulting Director 02/25/22 03/27/22 Carla Burdick MD [address] [place], [place] 885641 Primary Staff Physician Cardiology 03/03/22 Hide Inspector And Sorter Relationship Specialty Start Date End Date Doreen Le PA-C [address] [place] [address] PCP - General Family Practice 11/26/16 No, Referral Referring 01/31/19 [place] [address] [address] [place] [place], [place] 4573826 Primary Staff Physician Cardiology 07/15/21 Sheridan Cervantes RN Primary Care It Consulting Director 02/25/22 03/27/22 Carla Burdick MD [address] [place] [address] Primary Staff Physician Cardiology 03/03/22 Hide Inspector And Sorter Relationship Specialty Start Date End Date Doreen Le PA-C [address] [place] [address] PCP - General Family Practice 11/26/16 No, Referral Referring 01/31/19 [place] [address] [place] [address] Primary Staff Physician Cardiology 07/15/21 Sheridan Cervantes, radioactive waste disposal dispatcher It Consulting Director 02/25/22 03/27/22 Carla Burdick MD [address] [facility] [place] [address] Primary Staff Physician Cardiology 03/03/22 Hide Inspector And Sorter Relationship Specialty Start Date End Date Doreen Le PA-C [address] [place] [address] PCP - General Family Practice 11/26/16 No, Referral Referring 01/31/19 [place] [address] [place] [address] Primary Staff Physician Cardiology 07/15/21 Carla Burdick MD [address] [facility] [place] [address] Primary Staff Physician Cardiology 03/03/22 Hide Inspector And Sorter Relationship Specialty Start Date End Date Doreen Le PA-C [address] [place] [address] PCP - General Family Practice 11/26/16 No, Referral Referring 01/31/19 [place] [address] [facility] [place] [address] Primary Staff Physician Cardiology 07/15/21 Carla Burdick MD [address] [facility] [place] [address] Primary Staff Physician Cardiology 03/03/22 Hide Inspector And Sorter Relationship Specialty Start Date End Date Doreen Le PA-C [address] [place] [address] PCP - General Family Medicine 11/26/16 No, Referral Referring 01/31/19 [place] [address] [place] [address] Primary Staff Physician Cardiology 07/15/21 Carla Burdick MD [address] [place] [address] Primary Staff Physician Cardiology 03/03/22 Hide Inspector And Sorter Relationship Specialty Start Date End Date Doreen Le PA-C [address] [place] [address] PCP - General Family Medicine 11/26/16 No, Referral Referring 01/31/19 [place] [address] [facility] [place] [address] Primary Staff Physician Cardiology 07/15/21 Carla Burdick MD [address] [place] [address] Primary Staff Physician Cardiology 03/03/22 Hide Inspector And Sorter Relationship Specialty Start Date End Date Doreen Le PA-C [address] [place] [address] PCP - General Family Medicine 11/26/16 No, Referral Referring 01/31/19 [place] [address] [place] [address] Primary Staff Physician Cardiology 07/15/21 Carla Burdick MD [address] [place] [address] Primary Staff Physician Cardiology 03/03/22 Hide Inspector And Sorter Relationship Specialty Start Date End Date Doreen Le PA-C [address] [place] [address] PCP - General Family Medicine 11/26/16 No, Referral Referring 01/31/19 [place] [address] [facility] [place] 7763650 [phone] Primary Staff Physician Cardiology 07/15/21 Carla Burdick MD [address] [place] [address] Cardiology 03/03/22 03/03/22 Carla Burdick MD [address] [place] [address] Primary Staff Physician Cardiology 03/03/22 Hide Inspector And Sorter Relationship Specialty Start Date End Date Doreen Le PA-C [address] [place] [address] PCP - General Family Medicine 11/26/16 No, Referral Referring 01/31/19 [place] [address] [place], [place] 9765250 [phone] Primary Staff Physician Cardiology 07/15/21 Carla Burdick MD [address] [place] [address] Primary Staff Physician Cardiology 03/03/22 Hide Inspector And Sorter Relationship Specialty Start Date End Date Doreen Le PA-C [address] [place] [address] PCP - General Family Medicine 11/26/16 No, Referral Referring 01/31/19 [place] [address] [place] [address] Primary Staff Physician Cardiology 07/15/21 Carla Burdick MD [address] [place] [address] Primary Staff Physician Cardiology 03/03/22 Hide Inspector And Sorter Relationship Specialty Start Date End Date Doreen Le PA-C [address] [place] [address] PCP - General Family Medicine 11/26/16 No, Referral Referring 01/31/19 [place] [address] [facility] [place] [address] Primary Staff Physician Cardiology 07/15/21 Carla Burdick MD [address] [place] [address] Primary Staff Physician Cardiology 03/03/22 Hide Inspector And Sorter Relationship Specialty Start Date End Date Doreen Le PA-C [address] [place] [address] PCP - General Family Medicine 11/26/16 No, Referral Referring 01/31/[place] [address] [place] [address] Primary Staff Physician Cardiology 07/15/21 Carla Burdick MD [address] [place] [address] Primary Staff Physician Cardiology 03/03/22 Hide Inspector And Sorter Relationship Specialty Start Date End Date Doreen Le PA-C [address] [place] [address] PCP - General Family Medicine 11/26/16 No, Referral Referring 01/31/19 [place] [address] [facility] [place] 5712992 [phone] Primary Staff Physician Cardiology 07/15/21 aCrla Burdick MD [address] [facility] [address] Primary Staff Physician Cardiology 03/03/22 Hide Inspector And Sorter Relationship Specialty Start Date End Date Doreen Le PA-C [address] [place] [address] PCP - General Family Medicine 11/26/16 No, Referral Referring 01/31/19 [place] [address] [facility] [place] [address] Primary Staff Physician Cardiology 07/15/21 Carla Burdick MD [address] [facility] [place] [address] Primary Staff Physician Cardiology 03/03/22 Sonny Lund MD [address] [facility] [address] Hematology/Oncology 04/22/22 Hide Inspector And Sorter Relationship Specialty Start Date End Date Doreen Le PA-C [address] [place] [address] PCP - General Family Medicine 11/26/16 No, Referral Referring 01/31/19 [place] [address] [facility] [place] [address] Primary Staff Physician Cardiology 07/15/21 Carla Burdick MD [address] [facility] [address] Primary Staff Physician Cardiology 03/03/22 Sonny Lund MD [address] [facility] [place] [address] Hematology/Oncology 04/22/22 Hide Inspector And Sorter Relationship Specialty Start Date End Date Doreen Le PA-C [address] [place] [address] PCP - General Family Medicine 11/26/16 No, Referral Referring 01/31/19 [place] [address] [facility] [place] [address] Primary Staff Physician Cardiology 07/15/21 Carla Burdick MD [address] [facility] [place] [address] Primary Staff Physician Cardiology 03/03/22 Sonny Lund MD [address] [facility] [address] Hematology/Oncology 04/22/22 Hide Inspector And Sorter Relationship Specialty Start Date End Date Doreen Le PA-C [address] [place] [address] PCP - General Family Medicine 11/26/16 No, Referral Referring 01/31/19 [place] [address] [facility] [place] 6879661 [phone] Primary Staff Physician Cardiology 07/15/21 Carla Burdick MD [address] [facility] [place] [address] Primary Staff Physician Cardiology 03/03/22 Sonny Lund MD [address] [facility] [address] Hematology/Oncology 04/22/22 Hide Inspector And Sorter Relationship Specialty Start Date End Date Doreen Le PA-C [address] [place] [address] PCP - General Family Medicine 11/26/16 No, Referral Referring 01/31/19 [place] [address] [place] [address] Primary Staff Physician Cardiology 07/15/21 Carla Burdick MD [address] [facility] [place] [address] Primary Staff Physician Cardiology 03/03/22 Sonny Ludn MD [address] [facility] [address] Hematology/Oncology 04/22/22 Hide Inspector And Sorter Relationship Specialty Start Date End Date Doreen Le PACarolineC [address] [place] [address] PCP - General Family Medicine 11/26/16 No, Referral Referring 01/31/19 [place] [address] [facility] [place] [address] Primary Staff Physician Cardiology 07/15/21 Carla Burdick MD [address] [facility] [place] [address] Primary Staff Physician Cardiology 03/03/22 Sonny Lund MD [address] [facility] [address] Hematology/Oncology 04/22/22 Hide Inspector And Sorter Relationship Specialty Start Date End Date Doreen Le PACarolineC [address] [place] [address] PCP - General Family Medicine 11/26/16 No, Referral Referring 01/31/19 [place] [address] [place] [address] Primary Staff Physician Cardiology 07/15/21 Carla Burdick MD [address] [facility] [place] [address] Primary Staff Physician Cardiology 03/03/22 Sonny Lund MD [address] [facility] [place] [address] Hematology/Oncology 04/22/22 Hide Inspector And Sorter Relationship Specialty Start Date End Date Doreen Le PA-C [address] [place] [address] PCP - General Family Medicine 11/26/16 No, Referral Referring 01/31/19 [place] [address] [place], [place] 6571165 [phone] Primary Staff Physician Cardiology 07/15/21 Carla Burdick MD [address] [facility] [place] [address] Primary Staff Physician Cardiology 03/03/22 Sonny Lund MD [address] [facility] [address] Hematology/Oncology 04/22/22 Hide Inspector And Sorter Relationship Specialty Start Date End Date Doreen Le PA-C [address] [place] [address] PCP - General Family Medicine 11/26/16 No, Referral Referring 01/31/19 [place] [address] [place], [place] 3882348 [phone] Primary Staff Physician Cardiology 07/15/21 Carla Burdick MD [address] [place] [address] Primary Staff Physician Cardiology 03/03/22 Sonny Lund MD [address] [facility] [address] Hematology/Oncology 04/22/22 Hide Inspector And Sorter Relationship Specialty Start Date End Date Doreen Le PA-C [address] [place] [address] PCP - General Family Medicine 11/26/16 No, Referral Referring 01/31/19 [place] [address] [place], [place] 936[address]15 [phone] Primary Staff Physician Cardiology 07/15/21 Carla Burdick MD [address] [facility] [address] Primary Staff Physician Cardiology 03/03/22 Sonny Lund MD [address] [facility] [address] Hematology/Oncology 04/22/22 Hide Inspector And Sorter Relationship Specialty Start Date End Date Doreen Le PA-C [address] [place] [address] PCP - General Family Medicine 11/26/16 No, Referral Referring 01/31/19 [place] [address] [facility] [place] 215[address]13 [phone] Primary Staff Physician Cardiology 07/15/21 Carla Burdick MD [address] [facility] [address] Primary Staff Physician Cardiology 03/03/22 Sonny Lund MD [address] [facility] [address] Hematology/Oncology 04/22/22 Hide Inspector And Sorter Relationship Specialty Start Date End Date Doreen Le PA-C [address] [place] [address] PCP - General Family Medicine 11/26/16 No, Referral Referring 01/31/19 [place] [address] [place], [place] 7044025 [phone] Primary Staff Physician Cardiology 07/15/21 Carla Burdick MD [address] [facility] [address] Primary Staff Physician Cardiology 03/03/22 Sonny Lund MD [address] [place] [address] Hematology/Oncology 04/22/22 Hide Inspector And Sorter Relationship Specialty Start Date End Date Doreen Le PA-C [address] [place] [address] PCP - General Family Medicine 11/26/16 No, Referral Referring 01/31/[place] [address] [place] [address] Primary Staff Physician Cardiology 07/15/21 Carla Burdick MD [address] [facility] [address] Primary Staff Physician Cardiology 03/03/22 Sonny Lund MD [address] [facility] [address] Hematology/Oncology 04/22/22 Hide Inspector And Sorter Relationship Specialty Start Date End Date Doreen Le PA-C [address] [place] [address] PCP - General Family Medicine 11/26/16 No, Referral Referring 01/31/19 [place] [address] [facility] [place] 0938[address] [phone] Primary Staff Physician Cardiology 07/15/21 Carla Burdick MD [address] [place], [place] [address] Primary Staff Physician Cardiology 03/03/22 Sonny Lund MD [address] [place] [address] Hematology/Oncology 04/22/22 Hide Inspector And Sorter Relationship Specialty Start Date End Date Doreen Le PA-C [address] [place], [place] 718151 PCP - General Family Medicine 11/26/16 No, Referral Referring 01/31/19 [place] [address] [place], [place] 2733126 Primary Staff Physician Cardiology 07/15/21 Carla Burdick MD [address] [place], [place] 93[address] Primary Staff Physician Cardiology 03/03/22 Sonny Lund MD [address] [place], [place] 5424[address] Hematology/Oncology 04/22/22 Hide Inspector And Sorter Relationship Specialty Start Date End Date Doreen Le PA-C [address] [place], [place] 370531 PCP - General Family Medicine 11/26/16 No, Referral Referring 01/31/19 [place] [address] [place] [place] 7274326 Primary Staff Physician Cardiology 07/15/21 Carla Burdick MD [address] [place], [place] 7[address] Primary Staff Physician Cardiology 03/03/22 Sonny Lund MD [address] [place] [address] Hematology/Oncology 04/22/22 Hide Inspector And Sorter Relationship Specialty Start Date End Date Doreen Le PA-C [address] [place], [place] 554751 PCP - General Family Medicine 11/26/16 No, Referral Referring 01/31/19 [place] [address] [place] [address] Primary Staff Physician Cardiology 07/15/21 Carla Burdick MD [address] [place], [place] 646461 Primary Staff Physician Cardiology 03/03/22 Sonny Lund MD [address] [place] [address] Hematology/Oncology 04/22/22 Hide Inspector And Sorter Relationship Specialty Start Date End Date Doreen Le PA-C [address] [place], [place] 288881 PCP - General Family Medicine 11/26/16 No, Referral Referring 01/31/19 [place] [address] [address] [place] [place], [place] 8402426 Primary Staff Physician Cardiology 07/15/21 Carla Burdick MD [address] [place], [place] [address] Primary Staff Physician Cardiology 03/03/22 Sonny Lund MD [address] [place] [address] Hematology/Oncology 04/22/22 Hide Inspector And Sorter Relationship Specialty Start Date End Date Doreen Le PA-C [address] [place] [address] PCP - General Family Medicine 11/26/16 No, Referral Referring 01/31/[place] [address] [place] [address] Primary Staff Physician Cardiology 07/15/21 Carla Burdick MD [address] [place], [place] 363541 Primary Staff Physician Cardiology 03/03/22 Sonny Lund MD [address] [place] [address] Hematology/Oncology 04/22/22 Hide Inspector And Sorter Relationship Specialty Start Date End Date Doreen Le PA-C [address] [place], [place] 653691 PCP - General Family Medicine 11/26/16 No, Referral Referring 01/31/19 [place] [address] [address] [place], [place] 5267626 Primary Staff Physician Cardiology 07/15/21 Carla Burdick MD [address] [place], [place] [address] Primary Staff Physician Cardiology 03/03/22 Sonny Lund MD [address] [place] [address] Hematology/Oncology 04/22/22 Hide Inspector And Sorter Relationship Specialty Start Date End Date Doreen Le PA-C [address] [place] [address] PCP - General Family Medicine 11/26/16 No, Referral Referring 01/31/19 [place] [address] [place] [address] Primary Staff Physician Cardiology 07/15/21 Carla Burdick MD [address] [place], [place] 1428[address] Primary Staff Physician Cardiology 03/03/22 Sonny Lund MD [address] [place] [address] Hematology/Oncology 04/22/22 Hide Inspector And Sorter Relationship Specialty Start Date End Date Doreen Le PA-C [address] [place], [place] 597081 PCP - General Family Medicine 11/26/16 No, Referral Referring 01/31/19 [place] [address] [place], [place] 1393426 Primary Staff Physician Cardiology 07/15/21 Carla Burdick MD [address] [place], [place] [address] Primary Staff Physician Cardiology 03/03/22 Sonny Lund MD [address] [place] [address] Hematology/Oncology 04/22/22 Hide Inspector And Sorter Relationship Specialty Start Date End Date Doreen Le PA-C [address] [place] [address] PCP - General Family Medicine 11/26/16 No, Referral Referring 01/31/19 [place] [address] [place] [address] Primary Staff Physician Cardiology 07/15/21 Carla Burdick MD [address] [place], [place] 2426[address] Primary Staff Physician Cardiology 03/03/22 Sonny Lund MD [address] [place], [place] 39[address] Hematology/Oncology 04/22/22 Hide Inspector And Sorter Relationship Specialty Start Date End Date Doreen Le PA-C [address] [place] [address] PCP - General Family Medicine 11/26/16 No, Referral Referring 01/31/19 [place] [address] [place] [place] 1596326 Primary Staff Physician Cardiology 07/15/21 Carla Burdick MD [address] [address] Primary Staff Physician Cardiology 03/03/22 Sonny Lund MD [address] [place] [address] Hematology/Oncology 04/22/22 Hide Inspector And Sorter Relationship Specialty Start Date End Date Doreen Le PA-C [address] [place] [address] PCP - General Family Medicine 11/26/16 No, Referral Referring 01/31/19 [place] [address] [place] [address] Primary Staff Physician Cardiology 07/15/21 Carla Burdick MD [address] [place], [place] [address] Primary Staff Physician Cardiology 03/03/22 Sonny Lund MD [address] [place] [address] Hematology/Oncology 04/22/22 Hide Inspector And Sorter Relationship Specialty Start Date End Date Doreen Le PA-C [address] [place] [address] PCP - General Family Medicine 11/26/16 No, Referral Referring 01/31/19 [place] [address] [facility] [place], [place] 59[address] Primary Staff Physician Cardiology 07/15/21 Carla Burdick MD [address] [place] [address] Primary Staff Physician Cardiology 03/03/22 Sonny Lund MD [address] [place] [address] Hematology/Oncology 04/22/22 Hide Inspector And Sorter Relationship Specialty Start Date End Date Doreen Le PA-C [address] [place] [address] PCP - General Family Medicine 11/26/16 No, Referral Referring 01/31/19 [place] [address] [place] [address] Primary Staff Physician Cardiology 07/15/21 Carla Burdick MD [address] [place], [place] 996111 Primary Staff Physician Cardiology 03/03/22 Sonny Lund MD [address] [facility] [place] [address] Hematology/Oncology 04/22/22 Hide Inspector And Sorter Relationship Specialty Start Date End Date Doeren Le PA-C [address] [place] [address] PCP - General Family Medicine 11/26/16 No, Referral Referring 01/31/[place] [address] [place], [place] 6177726 Primary Staff Physician Cardiology 07/15/21 Carla Burdick MD [address] [place] [address] Primary Staff Physician Cardiology 03/03/22 Sonny Lund MD [address] [place] [address] Hematology/Oncology 04/22/22 Hide Inspector And Sorter Relationship Specialty Start Date End Date Doreen Le PA-C [address] [place] [address] PCP - General Family Medicine 11/26/16 No, Referral Referring 01/31/19 [place] [address] [place] [address] Primary Staff Physician Cardiology 07/15/21 Carla Burdick MD [address] [place], [place] 335721 Primary Staff Physician Cardiology 03/03/22 Sonny Lund MD [address] [place] [address] Hematology/Oncology 04/22/22 Hide Inspector And Sorter Relationship Specialty Start Date End Date Doreen Le PA-C [address] [place] [address] PCP - General Family Medicine 11/26/16 No, Referral Referring 01/31/19 [place] [address] [place] [address] Primary Staff Physician Cardiology 07/15/21 Carla Burdick MD [address] [facility] [place] [address] Primary Staff Physician Cardiology 03/03/22 Sonny Lund MD [address] [place] [address] Hematology/Oncology 04/22/22 Hide Inspector And Sorter Relationship Specialty Start Date End Date Doreen Le PA-C [address] [place] [address] PCP - General Family Medicine 11/26/16 No, Referral Referring 01/31/19 [place] [address] [place] [address] Primary Staff Physician Cardiology 07/15/21 Carla Burdick MD [address] [place] [address] Primary Staff Physician Cardiology 03/03/22 Sonny Lund MD [address] [place] [address] Hematology/Oncology 04/22/22 Hide Inspector And Sorter Relationship Specialty Start Date End Date Doreen Le PA-C [address] [place] [address] PCP - General Family Medicine 11/26/16 No, Referral Referring 01/31/19 [place] [address] [place] [address] Primary Staff Physician Cardiology 07/15/21 Carla Burdick MD [address] [place] [address] Primary Staff Physician Cardiology 03/03/22 Sonny Lund MD [address] [place] [address] Hematology/Oncology 04/22/22 Hide Inspector And Sorter Relationship Specialty Start Date End Date Doreen Le PA-C [address] [place] [address] PCP - General Family Medicine 11/26/16 No, Referral Referring 01/31/19 [place] [address] [place], [place] 2498926 Primary Staff Physician Cardiology 07/15/21 Carla Burdick MD [address] [place] [address] Primary Staff Physician Cardiology 03/03/22 Sonny Lund MD [address] [place] [address] Hematology/Oncology 04/22/22 Hide Inspector And Sorter Relationship Specialty Start Date End Date Doreen Le PA-C [address] [place] [address] PCP - General Family Medicine 11/26/16 No, Referral Referring 01/31/[place] [address] [facility] [place] [place] [id number] Primary Staff Physician Cardiology 07/15/21 Carla Burdick MD [address] [place] [address] Primary Staff Physician Cardiology 03/03/22 Sonny Lund MD [address] [place] [address] Hematology/Oncology 04/22/22 Hide Inspector And Sorter Relationship Specialty Start Date End Date Doreen Le PA-C [address] [place] [address] PCP - General Family Medicine 11/26/16 No, Referral Referring 01/31/19 [place] [address] [place], [place] 2961226 Primary Staff Physician Cardiology 07/15/21 Carla Burdick MD [address] [place] [address] Primary Staff Physician Cardiology 03/03/22 Sonny Lund MD [address] [place] [address] Hematology/Oncology 04/22/22 Hide Inspector And Sorter Relationship Specialty Start Date End Date Doreen Le PA-C [address] [place] [address] PCP - General Family Medicine 11/26/16 No, Referral Referring 01/31/19 [place] [address] [place], [place] [id number] Primary Staff Physician Cardiology 07/15/21 Carla Burdick MD [address] [place] [address] Primary Staff Physician Cardiology 03/03/22 Sonny Lund MD [address] [place] [address] Hematology/Oncology 04/22/22 Hide Inspector And Sorter Relationship Specialty Start Date End Date Doreen Le PA-C [address] [place] [address] PCP - General Family Medicine 11/26/16 No, Referral Referring 01/31/19 [place] [address] [place] [address] Primary Staff Physician Cardiology 07/15/21 Carla Burdick MD [address] [place] [address] Primary Staff Physician Cardiology 03/03/22 Sonny Lund MD [address] [place] [address] Hematology/Oncology 04/22/22 Hide Inspector And Sorter Relationship Specialty Start Date End Date Doreen Le PA-C [address] [place] [address] PCP - General Family Medicine 11/26/16 No, Referral Referring 01/31/19 [place] [address] [facility] [place], [place] [address] Primary Staff Physician Cardiology 07/15/21 Carla Burdick MD [address] [place] [address] Primary Staff Physician Cardiology 03/03/22 Sonny Lund MD [address] [place] [address] Hematology/Oncology 04/22/22 Hide Inspector And Sorter Relationship Specialty Start Date End Date Doreen Le PA-C [address] [place] [address] PCP - General Family Medicine 11/26/16 No, Referral Referring 01/31/19 [place] [address] [facility] [place] [address] Primary Staff Physician Cardiology 07/15/21 Carla Burdick MD [address] [place] [address] Primary Staff Physician Cardiology 03/03/22 Sonny Lund MD [address] [place] [address] Hematology/Oncology 04/22/22 Hide Inspector And Sorter Relationship Specialty Start Date End Date Doreen Le PA-C [address] [place] [address] PCP - General Family Medicine 11/26/16 No, Referral Referring 01/31/19 [place] [address] [facility] [place] [id number] Primary Staff Physician Cardiology 07/15/21 Carla Burdick MD [address] [place] [address] Primary Staff Physician Cardiology 03/03/22 Sonny Lund MD [address] [place] [address] Hematology/Oncology 04/22/22 Hide Inspector And Sorter Relationship Specialty Start Date End Date Doreen Le PA-C [address] [place] [address] PCP - General Family Medicine 11/26/16 No, Referral Referring 01/31/19 [place] [address] [place], [place] 9198326 Primary Staff Physician Cardiology 07/15/21 Carla Burdick MD [address] [place] [address] Primary Staff Physician Cardiology 03/03/22 Sonny Lund MD [address] [place] [address] Hematology/Oncology 04/22/22 Hide Inspector And Sorter Relationship Specialty Start Date End Date Doreen Le PA-C [address] [place] [address] PCP - General Family Medicine 11/26/16 No, Referral Referring 01/31/19 [place] [address] [place], [place] 6960726 Primary Staff Physician Cardiology 07/15/21 Carla Burdick MD [address] [place] [address] Primary Staff Physician Cardiology 03/03/22 Sonny Lund MD [address] [place] [address] Hematology/Oncology 04/22/22 Hide Inspector And Sorter Relationship Specialty Start Date End Date Doreen Le PA-C [address] [place] [address] PCP - General Family Medicine 11/26/16 No, Referral Referring 01/31/19 [place] [address] [place] [address] Primary Staff Physician Cardiology 07/15/21 Carla Burdick MD [address] [place] [address] Primary Staff Physician Cardiology 03/03/22 Sonny Lund MD [address] [place] [address] Hematology/Oncology 04/22/22 Hide Inspector And Sorter Relationship Specialty Start Date End Date Doreen Le PA-C [address] [place] [address] PCP - General Family Medicine 11/26/16 No, Referral Referring 01/31/19 [place] [address] [place], [place] 6803726 Primary Staff Physician Cardiology 07/15/21 Carla Burdick MD [address] [place] [address] Primary Staff Physician Cardiology 03/03/22 Sonny Lund MD [address] [place] [address] Hematology/Oncology 04/22/22 Hide Inspector And Sorter Relationship Specialty Start Date End Date Doreen Le PA-C [address] [place] [address] PCP - General Family Medicine 11/26/16 No, Referral Referring 01/31/19 [place] [address] [place], [place] 6543826 Primary Staff Physician Cardiology 07/15/21 Hide Inspector And Sorter Relationship Specialty Start Date End Date Doreen Le PA-C [address] [place] [address] PCP - General Family Medicine 11/26/16 No, Referral Referring 01/31/19 [place] [address] [place], [place] 6786426 Primary Staff Physician Cardiology 07/15/21 Carla Burdick MD [address] [place] [address] Primary Staff Physician Cardiology 03/03/22 Sonny Lund MD [address] [place] [address] Hematology/Oncology 04/22/22 Hide Inspector And Sorter Relationship Specialty Start Date End Date Dianne Le PA-C PCP - General Family Medicine 11/26/16 No, Referral Referring 01/31/19 [place] [address] [address] [place], [place] 8923[address] Primary Staff Physician Cardiology 07/15/21 Carla Burdick MD [address] [place], [place] [address] Primary Staff Physician Cardiology 03/03/22 Sonny Lund MD [address] [place], [place] [address] Hematology/Oncology 04/22/22 Deysi Collazo, EDGE STRIPPER.MANAGER REGULATORY [address] [place], [place] 434121 [facility] 06/09/24 Sandra Bell EDGE STRIPPER.MANAGER REGULATORY [address] [place], [place] 227651 [facility] 06/09/24 Hide Inspector And Sorter Relationship Specialty Start Date End Date No, Referral Referring 01/31/19 [place] [address] [place], [place] 6987[address] Primary Staff Physician Cardiology 07/15/21 Carla Burdick MD [address] [place] [address] Primary Staff Physician Cardiology 03/03/22 Sonny Lund MD [address] [place] [address] Hematology/Oncology 04/22/22 Deysi Collazo, EDGE STRIPPER.MANAGER REGULATORY [address] [facility] [place] [address] [facility] 06/09/24 Sandra Bell APRN.MANAGER REGULATORY [address] [place] [address] [facility] 06/09/24 Hide Inspector And Sorter Relationship Specialty Start Date End Date Deysi Collazo, EDGE STRIPPER.MANAGER REGULATORY [address] [facility] [place] [address] PCP - General Family Medicine 07/07/24 No, Referral Referring 01/31/19 [place] [address] [place], [place] 5778426 Primary Staff Physician Cardiology 07/15/21 Carla Burdick MD [address] [facility] [address] Primary Staff Physician Cardiology 03/03/22 Sonny Lund MD [address] [facility] [address] Hematology/Oncology 04/22/22 Deysi Collazo APRN.MANAGER REGULATORY [address] [facility] [place] [address] [facility] 06/09/24 Sandra Bell APRN.MANAGER REGULATORY [address] [place] [address] [facility] 06/09/24 Hide Inspector And Sorter Relationship Specialty Start Date End Date Deysi Collazo APRN.MANAGER REGULATORY [address] [place] [address] PCP - General Family Medicine 07/07/24 No, Referral Referring 01/31/19 [place] [address] [place] [address] Primary Staff Physician Cardiology 07/15/21 Carla Burdick MD [address] [place], [place] 247241 Primary Staff Physician Cardiology 03/03/22 Sonny Lund MD [address] [place] [address] Hematology/Oncology 04/22/22 Deysi Collazo APRN.MANAGER REGULATORY [address] [place] [address] [facility] 06/09/24 Sandra Bell APRN.MANAGER REGULATORY [address] [place] [address] [facility] 06/09/24 Hide Inspector And Sorter Relationship Specialty Start Date End Date Deysi Collazo APRN.MANAGER REGULATORY [address] [place] [address] PCP - General Family Medicine 07/07/24 No, Referral Referring 01/31/19 [place] [address] [address] [place], [place] 6537326 Primary Staff Physician Cardiology 07/15/21 Carla Burdick MD [address] [place] [address] Primary Staff Physician Cardiology 03/03/22 Sonny Lund MD [address] [place] [address] Hematology/Oncology 04/22/22 Deysi Collazo APRN.MANAGER REGULATORY [address] [place] [address] [facility] 06/[facility]24 Sandra Bell EDGE STRIPPER.MANAGER REGULATORY [address] [place] [address] [facility] 06/09/24 Hide Inspector And Sorter Relationship Specialty Start Date End Date Deysi Collazo APRN.MANAGER REGULATORY [address] [place] [address] PCP - General Family Medicine 07/07/24 No, Referral Referring 01/31/19 [place] [address] [place], [place] 4981326 Primary Staff Physician Cardiology 07/15/21 Carla Burdick MD [address] [place] [address] Primary Staff Physician Cardiology 03/03/22 Sonny Lund MD [address] [place] [address] Hematology/Oncology 04/22/22 Deysi Collazo, EDGE STRIPPER.MANAGER REGULATORY [address] [place] [address] Baton Teacher [facility] 06/09/24 Sandra Bell EDGE STRIPPER.MANAGER REGULATORY [address] [place], [place] 15[address]71 [facility] 06/09/24 Hide Inspector And Sorter Relationship Specialty Start Date End Date Deysi Collazo, EDGE STRIPPER.MANAGER REGULATORY [address] [place] [address] PCP - General Family Medicine 07/07/24 No, Referral Referring 01/31/19 [place] [address] [place] [place], [place] 5630026 Primary Staff Physician Cardiology 07/15/21 Carla Burdick MD [address] [facility] [place] [address] Primary Staff Physician Cardiology 03/03/22 Sonny Lund MD [address] [facility] [place] [address] Hematology/Oncology 04/22/22 Deysi Collazo APRN.MANAGER REGULATORY [address] [place] [address] [facility] 06/09/24 Sandra Bell EDGE STRIPPER.MANAGER REGULATORY [address] [place] [address] [facility] 06/09/24 Hide Inspector And Sorter Relationship Specialty Start Date End Date Deysi Collazo, EDGE STRIPPER.MANAGER REGULATORY [address] [place] [address] PCP - General Family Medicine 07/07/24 No, Referral Referring 01/31/19 [place] [address] [place], [place] 2304726 Primary Staff Physician Cardiology 07/15/21 Carla Burdick MD [address] [place], [place] 268871 Primary Staff Physician Cardiology 03/03/22 Sonny Lund MD [address] [place] [address] Hematology/Oncology 04/22/22 Deysi Collazo APRN.MANAGER REGULATORY [address] [place], [place] 361401 [facility] 06/09/24 Sandra Bell APRN.MANAGER REGULATORY [address] [place], [place] 130801 [facility] 06/09/24 Hide Inspector And Sorter Relationship Specialty Start Date End Date Deysi Collazo APRN.MANAGER REGULATORY [address] [place], [place] 427171 PCP - General Family Medicine 07/07/24 No, Referral Referring 01/31/[place] [address] [address] [place], [place] 4244826 Primary Staff Physician Cardiology 07/15/21 Carla Burdick MD [address] [place], [place] [address] Primary Staff Physician Cardiology 03/03/22 Sonny Lund MD [address] [place], [place] 303951 Hematology/Oncology 04/22/22 Deysi Collazo APRN.MANAGER REGULATORY [address] [place] [address] [facility] 06/09/24 Sandra Bell APRN.MANAGER REGULATORY [address] [place] [address] [facility] 06/09/24 Hide Inspector And Sorter Relationship Specialty Start Date End Date Deysi Collazo APRN.MANAGER REGULATORY [address] [place] [address] PCP - General Family Medicine 07/07/24 No, Referral Referring 01/31/19 [place] [address] [place] [address] Primary Staff Physician Cardiology 07/15/21 Carla Burdick MD [address] [place] [address] Primary Staff Physician Cardiology 03/03/22 Sonny Lund MD [address] [place] [address] Hematology/Oncology 04/22/22 Deysi Collazo APRN.MANAGER REGULATORY [address] [place] [address] [facility] 06/09/24 Sandra Bell APRN.MANAGER REGULATORY [address] [place] [address] [facility] 06/09/24 Hide Inspector And Sorter Relationship Specialty Start Date End Date Deysi Collazo APRN.MANAGER REGULATORY [address] [place] [address] PCP - General Family Medicine 07/07/24 No, Referral Referring 01/31/[place] [address] [address] [place], [place] 79[address] Primary Staff Physician Cardiology 07/15/21 Carla Burdick MD [address] [place] [address] Primary Staff Physician Cardiology 03/03/22 Sonny Lund MD [address] [place] [address] Hematology/Oncology 04/22/22 Deysi Collazo, EDGE STRIPPER.MANAGER REGULATORY [address] [place] [address] [facility] 06/09/24 Sandra Bell EDGE STRIPPER.MANAGER REGULATORY [address] [place] [address] [facility] 06/09/24 Hide Inspector And Sorter Relationship Specialty Start Date End Date Desyi Collazo APRN.MANAGER REGULATORY [address] [place] [address] PCP - General Family Medicine 07/07/24 No, Referral Referring 01/31/19 [place] [address] [place], [place] 60840[address] Primary Staff Physician Cardiology 07/15/21 Carla Burdick MD [address] [place], [place] 88[address] Primary Staff Physician Cardiology 03/03/22 Sonny Lund MD [address] [place] [address] Hematology/Oncology 04/22/22 Deysi Collazo, EDGE STRIPPER.MANAGER REGULATORY [address] [place] [address] [facility] 06/09/24 Sandra Bell EDGE STRIPPER.MANAGER REGULATORY [address] [place] [address] [facility] 06/09[facility]24 Hide Inspector And Sorter Relationship Specialty Start Date End Date Deysi Collazo, EDGE STRIPPER.MANAGER REGULATORY [address] [place] [address] PCP - General Family Medicine 07/07/24 No, Referral Referring 01/31/[place] [address] [place] [address] Primary Staff Physician Cardiology 07/15/21 Carla Burdick MD [address] [place] [address] Primary Staff Physician Cardiology 03/03/22 Sonny Lund MD [address] [place] [address] Hematology/Oncology 04/22/22 Deysi Collazo APRN.MANAGER REGULATORY [address] [place], [place] [address] [facility] 06/09/24 Sandra Bell EDGE STRIPPER.MANAGER REGULATORY [address] [place] [address] [facility] 06/09/24 Hide Inspector And Sorter Relationship Specialty Start Date End Date Deysi Collazo, EDGE STRIPPER.MANAGER REGULATORY [address] [place] [address] PCP - General Family Medicine 07/07/24 No, Referral Referring 01/31/19 [place] [address] [place], [place] 3892926 Primary Staff Physician Cardiology 07/15/21 Carla Burdick MD [address] [place], [place] 404[address] Primary Staff Physician Cardiology 03/03/22 Deysi Collazo, EDGE STRIPPER.MANAGER REGULATORY [address] [place] [address] [facility] 06/09/24 Sandra Bell EDGE STRIPPER.MANAGER REGULATORY [address] [place] [address] [facility] 06/09/24 Hide Inspector And Sorter Relationship Specialty Start Date End Date Deysi Collazo APRN.MANAGER REGULATORY [address] [place] [address] PCP - General Family Medicine 07/07/24 No, Referral Referring 01/31/19 [place] [address] [address] [place], [place] 0087[address] Primary Staff Physician Cardiology 07/15/21 Carla Burdick MD [address] [place], [place] 162331 [phone] Primary Staff Physician Cardiology 03/03/22 Deysi Collazo APRN.MANAGER REGULATORY [address] [place] [address] [facility] 06/09/24 Sandra Bell APRN.MANAGER REGULATORY [address] [place], [place] 923924 [phone] [facility] 06/09/24 Hide Inspector And Sorter Relationship Specialty Start Date End Date Deysi Collazo APRN.MANAGER REGULATORY [address] [place] [address] PCP - General Family Medicine 07/07/24 No, Referral Referring 01/31/19 [place] [address] [address] [place], [place] 4592526 Primary Staff Physician Cardiology 07/15/21 Carla Burdick MD [address] [place] [address] Primary Staff Physician Cardiology 03/03/22 Deysi Collazo APRN.MANAGER REGULATORY [address] [place] [address] [facility] 06/09/24 Sandra Bell APRN.MANAGER REGULATORY [address] [place], [place] 995[address] [facility] 06/09/24 Hide Inspector And Sorter Relationship Specialty Start Date End Date Deysi Collazo APRN.MANAGER REGULATORY [address] [place], [place] 506031 PCP - General Family Medicine 07/07/24 No, Referral Referring 01/31/19 [place] [address] [place], [place] 5893626 Primary Staff Physician Cardiology 07/15/21 Carla Burdick MD [address] [place], [place] 3715[address] Primary Staff Physician Cardiology 03/03/22 Deysi Collazo APRN.MANAGER REGULATORY [address] [place], [place] 159061 [facility] 06/09/24 Sandra Bell APRN.MANAGER REGULATORY [address] [place], [place] 9618[address] [facility] 06/09/24 Team Status: Active Member Role/Relationship Status Dates Deysi Collazo BACK TENDER CYLINDER, BACK TENDER CYLINDER-C Primary Care Provider Active Team Status: Active Member Role/Relationship Status Dates Deysi Collazo BACK TENDER CYLINDER, BACK TENDER CYLINDER-C Primary Care Provider Active Start: January 07, 2025 Dr. Luis Armando Harry MD Emergency Provider Active Sta rt: January 07, 2025 Dr. Radha Heller MD Admit Provider Active Star t: January 07, 2025 Dr. Radha Heller MD Attending Provider Active Start: January 07, 2025 Team Status: Inactive Member Role/Relationship Status Dates Deysi Collazo BACK TENDER CYLINDER, BACK TENDER CYLINDER-C Primary Care Provider Active Start: January 07, 2025 End: January 11, 2025 Dr. Luis Armando Harry MD Emergency Provider Active Sta rt: January 07, 2025 End: January 11, 2025 Dr. Radha Heller MD Admit Provider Active Star t: January 07, 2025 End: January 11, 2025 Dr. Radha Heller MD Other Provider Active Star t: January 07, 2025 End: January 11, 2025 Dr. Dianne Stovall DO Attending Provider Active Start: January 07, 2025 End: January 11, 2025 Dr. Jeremy Mcgarry MD Other Provider Active Start: January 07, 2025 End: January 11, 2025 Team Status: Active Member Role/Relationship Status Dates Deysi Collazo BACK TENDER CYLINDER, BACK TENDER CYLINDER-C Primary Care Provider Active Start: January 08, 2025 Dr. Abundio Turcios MD Attending Provider Active S tart: January 08, 2025 Team Status: Active Member Role/Relationship Status Dates Deysi Collazo BACK TENDER CYLINDER, BACK TENDER CYLINDER-C Primary Care Provider Active Start: January 08, 2025 Dr. Yaniv Masters MD Attending Provider Active S tart: January 08, 2025 Team Status: Active Member Role/Relationship Status Dates Deysi Collazo BACK TENDER CYLINDER, BACK TENDER CYLINDER-C Primary Care Provider Active Start: January 08, 2025 Dr. Luis Armando Harry MD Emergency Provider Active Sta rt: January 08, 2025 Dr. Radha Heller MD Admit Provider Active Star t: January 08, 2025 Dr. Radha Heller MD Other Provider Active Star t: January 08, 2025 Teo Blue MD Other Provider Active Start: 2024 Dr. Lindsey Francisco MD Other Provider Active Start: January 08, 2025 Yamileth Hassan MD Other Provider Active Start : January 08, 2025 Dr. Josefina Arrieta DO Other Provider Active St art: January 08, 2025 Dr. Charley Berger MD Other Provider Active Start: January 08, 2025 Dr. Tacos Edouard MD Other Provider Active Sta rt: January 08, 2025 Dr. Sydney Jarvis MD Other Provider Active Start : January 08, 2025 Dr. Marty Hopkins MD Other Provider Active Start: January 08, 2025 Dr. Tai Chavez MD Other Provider Active Start : January 08, 2025 Dr. Jose John MD Other Provider Active Sta rt: January 08, 2025 Karyna Gates MD Other Provider Active Start : January 08, 2025 Dr. Panda Hein MD Other Provider Active St art: January 08, 2025 Dr. Chelsi Pulido MD Other Provider Active Start : January 08, 2025 Dr. Lili Newman MD Other Provider Active Sta rt: January 08, 2025 Dr. Tulio Pittman MD Other Provider Active Start: January 08, 2025 Dr. Jonathan Funez MD Other Provider Active St art: January 08, 2025 Dr. Red Lucia MD Other Provider Active Star t: January 08, 2025 Dr. Gurpreet Geronimo MD Other Provider Active St art: January 08, 2025 Dr. Noris Brock MD Other Provider Active Start: January 08, 2025 Jessa Lee MD Other Provider Active Start: January 08, 2025 Dr. Dianne Stovall DO Attending Provider Active Start: January 08, 2025 Dr. Dianne Stovall DO Other Provider Active S tart: January 08, 2025 Dr. Jeremy Mcgarry MD Other Provider Active Start: January 08, 2025 Team Status: Active Member Role/Relationship Status Dates Deysi Collazo BACK TENDER CYLINDER, BACK TENDER CYLINDER-C Primary Care Provider Active Start: January 09, 2025 Dr. Luis Armando Harry MD Emergency Provider Active Sta rt: January 09, 2025 Dr. Radha Heller MD Admit Provider Active Star t: January 09, 2025 Dr. Radha Heller MD Other Provider Active Star t: January 09, 2025 Teo Blue MD Other Provider Active Start: 2024 Dr. Lidnsey Francisco MD Other Provider Active Start: January 09, 2025 Yamileth Hassan MD Other Provider Active Start : January 09, 2025 Dr. Josefina Arrieta DO Other Provider Active St art: January 09, 2025 Dr. Charley Berger MD Other Provider Active Start: January 09, 2025 Dr. Tacos Edouard MD Other Provider Active Sta rt: January 09, 2025 Dr. Sydney Jarvis MD Other Provider Active Start : January 09, 2025 Dr. Marty Hopkins MD Other Provider Active Start: January 09, 2025 Dr. Tai Chavez MD Other Provider Active Start : January 09, 2025 Dr. Jose John MD Other Provider Active Sta rt: January 09, 2025 Karyna Gates MD Other Provider Active Start : January 09, 2025 Dr. Panda Hein MD Other Provider Active St art: January 09, 2025 Dr. Chelsi Pulido MD Other Provider Active Start : January 09, 2025 Dr. Lili Newman MD Other Provider Active Sta rt: January 09, 2025 Dr. Tulio Pittman MD Other Provider Active Start: January 09, 2025 Dr. Jonathan Funez MD Other Provider Active St art: January 09, 2025 Dr. Red Lucia MD Other Provider Active Star t: January 09, 2025 Dr. Gurpreet Geronimo MD Other Provider Active St art: January 09, 2025 Dr. Noris Brock MD Other Provider Active Start: January 09, 2025 Jessa Lee MD Other Provider Active Start: January 09, 2025 Dr. Dianne Stovall DO Attending Provider Active Start: January 09, 2025 Dr. Dianne Stovall DO Other Provider Active S tart: January 09, 2025 Dr. Jeremy Mcgarry MD Other Provider Active Start: January 09, 2025 Team Status: Active Member Role/Relationship Status Dates Deysi Collazo BACK TENDER CYLINDER, BACK TENDER CYLINDER-C Primary Care Provider Active Start: January 10, 2025 Dr. Luis Armando Harry MD Emergency Provider Active Sta rt: January 10, 2025 Dr. Radha Heller MD Admit Provider Active Star t: January 10, 2025 Dr. Radha Heller MD Other Provider Active Star t: January 10, 2025 Dr. Dianne Stovall DO Attending Provider Active Start: January 10, 2025 Dr. Dianne Stovall DO Other Provider Active S tart: January 10, 2025 Dr. Jeremy Mcgarry MD Other Provider Active Start: January 10, 2025 Goals (unrecognized section and content) Goals may be documented in a n alternate sectionGoals may be documented in an alternate section FOR RECORDS PERTAINING TO PATIENTS [...] BE BASED ON THE PRIMARY CLINICAL RECORDS. [employer] [facility]. provides no warranty or guarantee of the accuracy or completeness of information in this document.
[2025-01-23 22:12] LABS: Hematocrit 28.4 % (37-47); Hemoglobin 9.4 g/dL (12.0-15.0); Immature Granulocytes Count 0.030 X10^3/uL (0.0-0.0); Mean Corp Hgb Conc 33.1 g/dL (32-36); Mean Corpuscular Volume 87.7 fL (81-99); Mean Platelet Vol. 9.9 fl (6.2-12.0); NRBC Flagged by Analyzer 0 % (0-5); POSITIVE MORPHOLOGY YES; Platelet Count 224 K/mm3 (150-450); RBC Distribution Width CV 20.2 % (11.6-14.6); RBC Distribution Width SD 65.1 fl (35.1-43.9); Red Blood Count 3.24 M/mm3 (4.2-5.4); White Blood Count 9.3 K/mm3 (4.4-11.0)
[2025-01-23 22:14] LABS: Differential Indicated SCAN CRITERIA MET
[2025-01-23 22:15] LABS: Anisocytosis 2+; Differential Comment SCANNED; Polychromasia 1+
[2025-01-23 22:16] LABS: Hypochromasia 3+
== END | disposition home or self-care (01) ==
PROVIDERS: PCP Family Medicine Geriatric Medicine; Referring Provider Internal Medicine Nephrology; Visit Provider Internal Medicine Nephrology
DX: N18.32 Chronic kidney disease, stage 3b (principal); E78.5 Hyperlipidemia, unspecified; R53.83 Other fatigue; Z13.89 Encounter for screening for other disorder; R25.2 Cramp and spasm
CPT/HCPCS: 36415; 80061; 80069; 82247; 82306; 82570; 83735; 84075; 84100; 84155; 84156; 84443; 84450; 84460; 85007; 85025; 86803

== ENCOUNTER → 2025-02-01 | Outpatient (CLI) | payer MEDICARE, SELFPAY ==
[2025-02-01 15:45] LABS: Hematocrit 29.6 % (37-47); Hemoglobin 9.5 g/dL (12.0-15.0); Immature Granulocytes Count 0.050 X10^3/uL (0.0-0.0); Mean Corp Hgb Conc 32.1 g/dL (32-36); Mean Corpuscular Volume 84.6 fL (81-99); Mean Platelet Vol. 9.6 fl (6.2-12.0); NRBC Flagged by Analyzer 0 % (0-5); Platelet Count 209 K/mm3 (150-450); RBC Distribution Width CV 19.9 % (11.6-14.6); RBC Distribution Width SD 61.5 fl (35.1-43.9); Red Blood Count 3.50 M/mm3 (4.2-5.4); White Blood Count 7.4 K/mm3 (4.4-11.0)
[2025-02-01 17:12] LABS: AST(SGOT) 26 U/L (<=31); Alanine Aminotransfer ALT/SGPT 11 U/L (<=34); Albumin, Serum 4.2 g/dL (3.4-4.8); Alkaline Phosphatase 120 U/L (35-104); Anion Gap 16 (5-15); BUN 75 mg/dL (4-19); BUN/Creat Ratio 30.6 RATIO (10-20); Calcium,Total 9.3 mg/dL (7.6-11.0); Carbon Dioxide 25.1 mmol/L (21.0-32.0); Chloride 88 mmol/L (98-108); Globulin 3.2 g/dL (2.2-4.2); Glucose 138 mg/dL (70-99); Potassium 3.4 mmol/L (3.3-5.1); Vitamin D,25 Hydroxy 36.3 ng/mL (30-100)
[2025-02-01 23:22] LABS: Xtra Tube Kwok EXTRA TUBE
== END | disposition home or self-care (01) ==
LOC: POLAB3 14:39
PROVIDERS: PCP Family Medicine Geriatric Medicine; Visit Provider Family Medicine Geriatric Medicine
DX: E55.9 Vitamin D deficiency, unspecified (principal); R53.83 Other fatigue
CPT/HCPCS: 36415; 80053; 82306; 84443; 85025

== ENCOUNTER → 2025-02-05 | Outpatient (CLI) | payer MEDICARE, SELFPAY ==
[2025-02-05 11:08] LABS: Anion Gap 17 (5-15); BUN 71 mg/dL (4-19); BUN/Creat Ratio 33.5 RATIO (10-20); Calcium,Total 9.5 mg/dL (7.6-11.0); Carbon Dioxide 22.7 mmol/L (21.0-32.0); Chloride 90 mmol/L (98-108); Glucose 159 mg/dL (70-99); Potassium 4.2 mmol/L (3.3-5.1); Pro- Brain NATRIURETIC PEPTIDE 9503 pg/mL (<=1800)
== END | disposition home or self-care (01) ==
LOC: POLAB3 09:53
PROVIDERS: PCP Family Medicine Geriatric Medicine; Visit Provider Internal Medicine Cardiovascular Disease
DX: N18.32 Chronic kidney disease, stage 3b (principal); I50.30 Unspecified diastolic (congestive) heart failure
CPT/HCPCS: 36415; 80048; 83880

== ENCOUNTER → 2025-02-13 | Outpatient (CLI) | payer MEDICARE, SELFPAY ==
[2025-02-13 16:10] LABS: Hematocrit 31.1 % (37-47); Hemoglobin 9.8 g/dL (12.0-15.0); Immature Granulocytes Count 0.020 X10^3/uL (0.0-0.0); Mean Corp Hgb Conc 31.5 g/dL (32-36); Mean Corpuscular Volume 87.6 fL (81-99); Mean Platelet Vol. 10.1 fl (6.2-12.0); NRBC Flagged by Analyzer 0 % (0-5); POSITIVE MORPHOLOGY YES; Platelet Count 163 K/mm3 (150-450); RBC Distribution Width CV 24.1 % (11.6-14.6); RBC Distribution Width SD 76.2 fl (35.1-43.9); Red Blood Count 3.55 M/mm3 (4.2-5.4); White Blood Count 7.7 K/mm3 (4.4-11.0)
[2025-02-13 16:11] LABS: Differential Indicated SCAN CRITERIA MET
[2025-02-13 16:12] LABS: AST(SGOT) 26 U/L (<=31); Alanine Aminotransfer ALT/SGPT 11 U/L (<=34); Albumin, Serum 4.1 g/dL (3.4-4.8); Alkaline Phosphatase 109 U/L (35-104); Anion Gap 17 (5-15); BUN 62 mg/dL (4-19); BUN/Creat Ratio 27.4 RATIO (10-20); Calcium,Total 9.7 mg/dL (7.6-11.0); Carbon Dioxide 24.2 mmol/L (21.0-32.0); Chloride 91 mmol/L (98-108); Globulin 3.4 g/dL (2.2-4.2); Glucose 90 mg/dL (70-99); Potassium 3.5 mmol/L (3.3-5.1)
[2025-02-13 18:46] LABS: Osmolality, Serum 295 mOsm/KG (280-301); Osmolality, Urine 315 mOsm/KG
[2025-02-13 20:02] LABS: Differential Comment SCANNED
[2025-02-13 20:03] LABS: Anisocytosis 2+; Polychromasia 1+
[2025-02-13 20:04] LABS: Hypochromasia 2+
[2025-02-15 05:07] LABS: CRP, High Sensitivity 41.42 mg/L (0.00-3.00)
== END | disposition home or self-care (01) ==
LOC: LAB 14:37
PROVIDERS: PCP Family Medicine Geriatric Medicine; Referring Provider Family Medicine Geriatric Medicine; Visit Provider Family Medicine Geriatric Medicine
DX: E87.6 Hypokalemia (principal); E03.9 Hypothyroidism, unspecified
CPT/HCPCS: 36415; 80053; 83930; 83935; 84300; 84443; 85025; 85652; 86141

== ENCOUNTER 2025-02-16 11:25 | Emergency (ER) | payer MEDICARE, SELFPAY ==
[2025-02-16] VITALS (11 sets, daily range): BP systolic 149–165; BP diastolic 62–111; PULSE 75–84; RESP 15–19; TEMP 36.5–36.7; O2SAT 97–100; BMI 25.8
--- NOTE | 2025-02-16 12:09 | RAD_ITS ---
PROCEDURE: CHEST PA AND LATERAL 02/16/2025 REASON FOR EXAM: CHEST PAIN TECHNIQUE: CHEST PA AND LATERAL COMPARISON: Prior study dated February 13, 2021. FINDINGS: Hardware: EKG electrodes are seen. A left-sided dual-chamber pacemaker is seen. Heart: Moderate cardiomegaly. Mediastinum: Atherosclerotic calcification of the aortic arch. Lungs: Enlargement of the central pulmonary arteries suggestive of pulmonary hypertension. Mild degree of vascular congestion. Bones: Degenerative changes are identified within the thoracic spine. RAD/Chest PA and Lateral IMPRESSION: Cardiomegaly and vascular congestion. Prominence of the central pulmonary arteries suggestive of pulmonary hypertensi on. Reading Location: [facility]
--- NOTE | 2025-02-16 12:09 | EKG12_ITS ---
Test Reason : SOB Blood Pressure : */* mmHG Vent. Rate : 78 BPM Atrial Rate : * BPM P-R Int : * ms QRS Dur : 120 ms QT Int : 432 ms P-R-T Axes : * -59 93 degrees QTcB Int : 492 ms Atrial fibrillation Left axis deviation Left ventricular hypertrophy with QRS widening ( R in aVL , [place] product , Romhilt-Rayo ) Nonspecific ST and T wave abnormality Abnormal ECG Confirmed by TORSTEN UGARTE, MIKE ([id number]), market editor TAMEKA MCKENZIE ([id number]) on 02/19/2025 9:17:22 AM Referred By: IVANNA/JERALD/OTIS Confirmed By: MIKE SARMIENTO MD
--- NOTE | 2025-02-16 12:10 | ED.VIS.DYS ---
HPI History of Present Illness Chief Complaint: Shortness of Breath Informant: patient Onset/Context/Timing Onset: Today and Yesterday Context: gradual Timing: Intermittent Current Severity: Mild Maximum Severity: Mild Worsened by: Exertion and Lying flat Relieved by: Nothing Associated Symptoms Negative for cough Chest Pain: Positive for None Narrative Narrative: 79-year-old female history of A-fib and CHF. On Plavix but no blood thinners. Saw her primary care physician earlier in the week for lower abdominal wall cellulitis that is greatly improved on antibiotics. Told him if she felt short of breath the last couple days. Denies fever. No cough. No chest pain. She has had a 6 pound weight gain over the last several days. She has no oxygen at home. PE Risk Factors: Negative for Cancer, OCP + Smoking + > 35, Prior DVT or PE, Recent immobilization, Recent surgery or Recent travel Prior similar symptoms: Yes Recent Illness/Hospitalization: No PFSH PFSH Medical History Acute on chronic heart failure with preserved ejection fraction Hypokalemia Fatigue Vitamin D deficiency Rheumatoid arthritis Insomnia Mitral valve regurgitation Tachy-lionel syndrome Rheumatic fever GERD (gastroesophageal reflux disease) Chronic renal failure (CRF), stage 3b Cervical cancer Iron deficiency anemia Non-sustained ventricular tachycardia Pulmonary hypertension Rectal bleed Presence of Watchman left atrial appendage closure device Pacemaker Sinus node dysfunction Bradycardia History of cardioversion MONIQUE (acute kidney injury) Skin tear of left forearm without complication Skin cancer Cardiac arrhythmia CHF exacerbation Brain aneurysm Anxiety Family history of brain aneurysm PAD (peripheral artery disease) PAF (paroxysmal atrial fibrillation) Obesity (BMI 30.0-34.9) Laceration of right middle finger Heart disease Diabetes History of cancer Fever HTN (hypertension) Diabetes mellitus type 2 in obese Chest pain, musculoskeletal HLD (hyperlipidemia) URI (upper respiratory infection) Bronchospasm with bronchitis, acute Home Medications ?Medication ?Instructions ?Recorded ?Last Taken ?Type atorvastatin 40 mg tablet 40 mg PO DAILY daily 01/07/25 Unknown History clopidogrel 75 mg tablet 75 mg PO DAILY 01/07/25 Unknown History bumetanide 2 mg tablet 2 mg PO BID #60 tabs 01/08/25 Unknown Rx levothyroxine 25 mcg tablet 25 mcg PO QDAY 02/05/25 Unknown History metoprolol succinate 50 mg 50 mg PO BID 02/05/25 Unknown History tablet,extended release 24 hr vitamin B complex 1 tab PO QDAY 02/05/25 Unknown History ascorbic acid (vitamin C) 500 mg 500 mg PO QDAY 02/14/25 Unknown History tablet aspirin 81 mg tablet,delayed 81 mg PO QDAY 02/14/25 Unknown History release (Adult Aspirin Regimen) metolazone 5 mg tablet 5 mg PO QDAY PRN 02/14/25 Unknown History pantoprazole 40 mg tablet,delayed 40 mg PO QDAY stomach 02/14/25 Unknown History release polysaccharide iron complex 150 mg 150 mg PO QDAY 02/14/25 Unknown History iron capsule (Ferrex) potassium chloride 10 mEq 10 meq PO QDAY 02/14/25 Unknown History tablet,extended release(part/cryst) spironolactone 25 mg tablet 12.5 mg PO BID daily 02/14/25 Unknown History Allergy/AdvReac Type Severity Reaction Status Date / Time propofol AdvReac Mild Low blood Verified 02/05/25 09:03 pressure Family History Father Heart disease High cholesterol Myocardial infarction, Onset Age: 58 Mother Heart disease Surgical History Hx of abdominal surgery History of mastoidectomy History of cardiac radiofrequency ablation history skin cancer surgery history bilateral ear surgeries History of hysterectomy H/O aortic valve replacement Social History household members: spouse number of children: 1 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 Leg swelling. Orthopnea. Constitutional Constitutional ED: Denies chills or fever(s) Eyes Eyes: Denies blurry vision ENT ENT ED: Denies ear pain Cardiovascular Cardiovascular: Reports orthopnea; Denies chest pain Respiratory/Chest Respiratory/Chest: Reports dyspnea and orthopnea; Denies cough or sputum Gastrointestinal Gastrointestinal: Denies abdominal pain, diarrhea or melena Genitourinary Genitourinary ED: Denies dysuria or hematuria Musculoskeletal Musculoskeletal: Denies arthralgias Integumentary Denies abscess or Abrasions Neurologic Neurologic: Denies headache(s) Psychiatric Psychiatric: Denies anxiety Endocrine Endocrinology: Denies cold intolerance Hematologic/Lymphatic Hematologic/Lymphatic: Denies easy bleeding, easy bruising or lymphadenopathy Allergic/Immunologic Allergic/Immunologic ED: Denies mouth swelling, tongue swelling or urticaria EXAM Physical Exam Narrative Exam Narrative: 79-year-old female sitting upright in bed. Vital signs stable afebrile. Pulse ox 98% on room air no hypoxia. H EENT exam pupils round react light. Moist mucous membranes. Neck nontender no JVD. Lungs clear to auscultation bilateral. Heart A-fib rate about 80. Chest wall ribs nontender. Abdomen soft nontender. Suprapubic area if she had cellulitis it seemed to resolve. Back nontender. Moving all 4 extremities. 1+ pitting edema both lower extremities. Calves nontender no cords. Bilateral edema up into the thighs. Normal dorsi plantarflexion. Neurologically patient is awake alert. Answering questions following commands. No focal motor deficits. Const Vital Signs: 02/16/25 11:26 02/16/25 12:05 02/16/25 12:06 Temperature 97.7 F L Temperature Source Oral Pulse Rate 84 78 Respiratory Rate 17 18 Respiratory Effort Normal Non-Labored Respiratory Depth Normal Respiratory Pattern Normal Blood Pressure 153/64 H 157/62 H Blood Pressure Mean 93 93 Pulse Ox 100 98 Oxygen Delivery Method Nasal Cannula Room Air Room Air Oxygen Flow Rate (L/min) 2 02/16/25 12:09 02/16/25 13:00 02/16/25 14:19 Temperature Temperature Source Pulse Rate 79 Respiratory Rate 15 Respiratory Effort Respiratory Depth Respiratory Pattern Blood Pressure 165/63 H Blood Pressure Mean 97 Pulse Ox 98 100 100 Oxygen Delivery Method Room Air Room Air Room Air Oxygen Flow Rate (L/min) 02/16/25 15:00 02/16/25 16:18 02/16/25 16:28 Temperature Temperature Source Pulse Rate 76 84 75 Respiratory Rate 16 15 19 H Respiratory Effort Respiratory Depth Respiratory Pattern Blood Pressure 149/111 H 154/72 H 154/72 H Blood Pressure Mean 123 99 99 Pulse Ox 100 99 100 Oxygen Delivery Method Room Air Room Air Oxygen Flow Rate (L/min) Positive well nourished and well developed; Negative for obese, cachectic, contractures or unkempt General Appearance ED: well developed and NAD; Negative for unkempt, cachectic or contractures Nutritional Appearance: Negative for cachectic or obese HEENT Reports moist mucous membranes atraumatic Eyes PERRL and EOMs intact bilaterally Neck no lymphadenopathy, supple, no meningeal signs and no JVD Resp normal respiratory effort and clear to auscultation bilaterally Cardio no murmurs Cardio Narrative: A-fib rate about 80. Rhythm: abnormal rhythm GI non-tender, non-distended and no masses Auscultation: normoactive bowel sounds Palpation: soft; Negative for tender, guarding, hepatomegaly, splenomegaly, mass or rebound tenderness present Back/Spine no CVA tenderness and normal to inspection Extremity Negative for normal to inspection General Extremety ED: Yes edema; Negative for tenderness General Extremity: edema Neuro oriented x3 and CN's II-XII intact bilaterally Sensorium / Orientation: alert, oriented to person, oriented to place and oriented to time Motor Exam: strength 5/5 throughout Psych mental status grossly normal Appearance: Negative for unkempt Thought Process: normal thought process Skin no wounds and skin turgor normal Lesions: no lesions Rashes: no rashes MDM MDM MDM Narrative Medical decision making narrative: 79-year-old female recent cellulitis resolving on oral antibiotics at home. Shortness of breath last couple days with weight gain and bilateral lower extremity edema consistent with CHF. Cardiac workup with chest x-ray. Repeat exam patient is doing well at 4:30 PM. Pulse ox in the mid 90s without oxygen. I discussed with her being admitted for diuresis. She absolutely does not want to stay. She understands risks and benefits. She is already on bumetanide and has as needed Tessalon at home. She will use those. Follow-up with Dr. Flores. She will be given a dose of Lasix here prior to discharge. History & Record Review Discussion w/independent historian: Patient Additional record(s) reviewed:: Prior inpatient record, Prior outpatient record, Prior ED visit and Prior labs Lab Data Attestation: I reviewed the patient's lab results. Lab results narrative: CBC shows a white count of 6. H&H 10.3 and 32. Baseline anemia. Platelets 139. Electrolytes show sodium 131. Gap 15. BUN/creatinine is sixteen 2.0 consistent with chronic kidney disease. Glucose 129. Labs are consistent with prior. Initial troponin 94. 2-hour troponin 88. She has cardiomegaly and CHF. BNP is 12,825 Labs: Laboratory Results - last 24 hr 08/15/25 08/15/25 13:33 15:54 WBC 6.1 RBC 3.70 L Hgb 10.3 L Hct 32.2 L MCV 87.0 MCH 27.8 MCHC 32.0 RDW Std Deviation 76.4 H RDW Coeff of Yonis 24.4 H Plt Count 139 L MPV 9.5 Immature Gran % (Auto) 0.300 Neut % (Auto) 60.6 Lymph % (Auto) 23.2 [place] % (Auto) 13.7 H Eos % (Auto) 1.2 Baso % (Auto) 1.0 Absolute Neuts (auto) 3.7 Absolute Lymphs (auto) 1.41 Nucleated RBC % 0 Differential Comment SCANNED Platelet Estimate SLT DEC Polychromasia 1+ Hypochromasia 1+ Anisocytosis 2+ Sodium 131 L Potassium 3.9 Chloride 92 L Carbon Dioxide 23.9 Anion Gap 15 BUN 68 H Creatinine 2.04 H Estim Creat Clear Calc 20.45 L Est GFR (MDRD) Non-Af 24 L BUN/Creatinine Ratio 33.4 H Glucose 129 H Calcium 9.5 Troponin T High Sens 94 H* D Troponin T Hi Sens 2 Hr 88 H* [place] [address] H Radiography Chest X-Ray - ED: 2 View, Read by ED Physician, Lungs, Mediastinum, Bony Structures, No Acute Disease, Chronic Changes and Cardiomegaly Diagnostic Testing: Clinical Impression(s) from Imaging Studies Chest X-Ray 02/16/25 12:09 IMPRESSION: Cardiomegaly and vascular congestion. Prominence of the central pulmonary arteries suggestive of pulmonary hypertension. [facility], 2 views, AP and lateral, interpreted by by myself and radiologist. She has chronic cardiomegaly. Left-sided pacemaker defibrillator. Rhythm Strip Rhythm Strip: A-fib Rate: 78 Ectopy: None EKG Initial EKG: Attestation: I personally reviewed and interpreted this EKG as follows: Interpretation: Atrial Fibrillation Comments: A-fib rate of 78 no acute signs of MA or ischemia. LVH. No acute change from a prior EKG from January. Prior EKG tracings: available for review Prior: Unchanged Discharge Plan Triage Chief Complaint: Shortness of Breath ED Provider: Magdy Pang Dx/Rx/DC Orders Clinical Impression: Acute dyspnea, CHF (congestive heart failure), Chronic atrial fibrillation Instructions: ED Heart Failure, Congestive (CHF) Prescriptions: No Action levothyroxine 25 mcg tablet 25 mcg PO QDAY vitamin B complex Tablet 1 tab PO QDAY metoprolol succinate 50 mg tablet extended release 24 hr 50 mg PO BID polysaccharide iron complex [Ferrex 150] 150 mg iron capsule 150 mg PO QDAY ascorbic acid (vitamin C) 500 mg tablet 500 mg PO QDAY aspirin [Adult Aspirin Regimen] 81 mg tablet,delayed release (DR/EC) 81 mg PO QDAY potassium chloride 10 mEq tablet,ER particles/crystals 10 meq PO QDAY metolazone 5 mg tablet 5 mg PO QDAY PRN Rx Instructions: goal weight 136 lb clopidogrel 75 mg tablet 75 mg PO DAILY atorvastatin 40 mg tablet 40 mg PO DAILY bumetanide 2 mg tablet 2 mg PO BID Qty: 60 0RF pantoprazole 40 mg tablet,delayed release (DR/EC) 40 mg PO QDAY spironolactone 25 mg tablet 12.5 mg PO BID Primary Care Provider: Vincent Flores Chi Referrals: Vincent Flores Chi, MD [Primary Care Provider] - 3-5 Days if not improving Activity Restrictions/Additional Instructions: Follow-up with your doctor next week. Continue to use your bumetanide and your metolazone for your fluid retention. Follow-up with Dr. Flores early next week to ensure you are improving. Return to the emergency department if you are feeling worse. Print Language: Czech Disposition Disposition: Home, Self Care
[2025-02-16 13:42] LABS: Hematocrit 32.2 % (37-47); Hemoglobin 10.3 g/dL (12.0-15.0); Immature Granulocytes Count 0.020 X10^3/uL (0.0-0.0); Mean Corp Hgb Conc 32.0 g/dL (32-36); Mean Corpuscular Volume 87.0 fL (81-99); Mean Platelet Vol. 9.5 fl (6.2-12.0); NRBC Flagged by Analyzer 0 % (0-5); POSITIVE MORPHOLOGY YES; Platelet Count 139 K/mm3 (150-450); RBC Distribution Width CV 24.4 % (11.6-14.6); RBC Distribution Width SD 76.4 fl (35.1-43.9); Red Blood Count 3.70 M/mm3 (4.2-5.4); White Blood Count 6.1 K/mm3 (4.4-11.0)
[2025-02-16 13:46] LABS: Differential Indicated SCAN CRITERIA MET
[2025-02-16 14:26] LABS: Anion Gap 15 (5-15); BUN 68 mg/dL (4-19); BUN/Creat Ratio 33.4 RATIO (10-20); Calcium,Total 9.5 mg/dL (7.6-11.0); Carbon Dioxide 23.9 mmol/L (21.0-32.0); Chloride 92 mmol/L (98-108); Estimated Creatinine Clearance 20.45 ml/min (50-250); Glucose 129 mg/dL (70-99); Potassium 3.9 mmol/L (3.3-5.1)
[2025-02-16 14:48] LABS: Pro- Brain NATRIURETIC PEPTIDE 12825 pg/mL (<=1800); Troponin T High Sensitivity 94 ng/L (<=14)
--- NOTE | 2025-02-16 14:48 | ED.RN ---
Critical trop of [address] Pang notified.
[2025-02-16 15:44] LABS: Differential Comment SCANNED
[2025-02-16 15:51] LABS: Anisocytosis 2+
[2025-02-16 15:52] LABS: Hypochromasia 1+; Polychromasia 1+
[2025-02-16 16:28] LABS: Troponin T High Sens 2 HR 88 ng/L (<=14)
[2025-02-16] MEDS: Furosemide 20 MG/2 ML VIAL IV (16:47)
== END 2025-02-16 17:25 | disposition home or self-care (01) ==
PROVIDERS: Emergency Provider Emergency Medicine; PCP Family Medicine Geriatric Medicine; Visit Provider Emergency Medicine
DX: I13.0 Hypertensive heart and chronic kidney disease with heart failure and stage 1 through stage 4 chronic kidney disease, or unspecified chronic kidney disease (principal); I50.33 Acute on chronic diastolic (congestive) heart failure; I48.20 Chronic atrial fibrillation, unspecified; N18.32 Chronic kidney disease, stage 3b; Z95.2 Presence of prosthetic heart valve; Z79.02 Long term (current) use of antithrombotics/antiplatelets; Z79.82 Long term (current) use of aspirin; Z79.899 Other long term (current) drug therapy; Z87.891 Personal history of nicotine dependence
CPT/HCPCS: 36415; 71046; 80048; 83880; 84484; 85025; 93005; 96374; 99285; A4216; J1938

== ENCOUNTER → 2025-02-21 | Outpatient (CLI) | payer MEDICARE, SELFPAY ==
[2025-02-21 17:26] LABS: Hematocrit 31.5 % (37-47); Hemoglobin 10.1 g/dL (12.0-15.0); Immature Granulocytes Count 0.020 X10^3/uL (0.0-0.0); Mean Corp Hgb Conc 32.1 g/dL (32-36); Mean Corpuscular Volume 86.3 fL (81-99); Mean Platelet Vol. 10.1 fl (6.2-12.0); NRBC Flagged by Analyzer 0 % (0-5); POSITIVE MORPHOLOGY YES; Platelet Count 170 K/mm3 (150-450); RBC Distribution Width CV 23.6 % (11.6-14.6); RBC Distribution Width SD 73.1 fl (35.1-43.9); Red Blood Count 3.65 M/mm3 (4.2-5.4); White Blood Count 7.1 K/mm3 (4.4-11.0)
[2025-02-21 17:37] LABS: Anion Gap 18 (5-15); BUN 88 mg/dL (4-19); BUN/Creat Ratio 44.3 RATIO (10-20); Calcium,Total 9.6 mg/dL (7.6-11.0); Carbon Dioxide 26.5 mmol/L (21.0-32.0); Chloride 89 mmol/L (98-108); Glucose 118 mg/dL (70-99); Potassium 3.2 mmol/L (3.3-5.1); Pro- Brain NATRIURETIC PEPTIDE 12763 pg/mL (<=1800)
[2025-02-21 20:45] LABS: Differential Indicated SCAN CRITERIA MET
[2025-02-21 21:06] LABS: Differential Comment SCANNED
[2025-02-21 21:09] LABS: Anisocytosis 2+; Polychromasia 1+
[2025-02-21 21:10] LABS: Hypochromasia 1+
[2025-02-22 00:43] LABS: Xtra Tube Kwok EXTRA TUBE
== END | disposition home or self-care (01) ==
LOC: POLAB3 16:43
PROVIDERS: PCP Family Medicine Geriatric Medicine; Visit Provider Family Medicine Geriatric Medicine
DX: R53.83 Other fatigue (principal)
CPT/HCPCS: 36415; 80048; 83880; 85025

== ENCOUNTER → 2025-02-27 | Outpatient (CLI) | payer MEDICARE, SELFPAY ==
[2025-02-27 11:24] LABS: Mucous, Urine 0 SEEN /hpf (<or=2+); Red Blood Cells-Urine 0 SEEN /hpf (0-5); Squamous Epithelial Cells - UA 0 SEEN /hpf (5-10)
[2025-02-27 12:19] LABS: Hematocrit 26.0 % (37-47); Hemoglobin 8.4 g/dL (12.0-15.0); Immature Granulocytes Count 0.020 X10^3/uL (0.0-0.0); Mean Corp Hgb Conc 32.3 g/dL (32-36); Mean Corpuscular Volume 87.5 fL (81-99); Mean Platelet Vol. 9.9 fl (6.2-12.0); NRBC Flagged by Analyzer 0 % (0-5); POSITIVE MORPHOLOGY YES; Platelet Count 181 K/mm3 (150-450); RBC Distribution Width CV 24.3 % (11.6-14.6); RBC Distribution Width SD 76.4 fl (35.1-43.9); Red Blood Count 2.97 M/mm3 (4.2-5.4); White Blood Count 7.0 K/mm3 (4.4-11.0)
[2025-02-27 12:20] LABS: Color, Urine Yellow (Yellow); Differential Indicated SCAN CRITERIA MET; Glucose, Dipstick Normal (Normal); Ketone-Dipstick Negative (Negative); Leukocyte Esterase-Dipstick Negative /ul (Negative); Nitrite-Dipstick Negative (Negative); Occult Blood-Urine Negative /ul (Negative); Protein-Dipstick 30 mg/dl (Negative); Specific Gravity, Urine 1.010 (1.002-1.030); Urine Bilirubin Dipstick Negative (Negative)
[2025-02-27 12:55] LABS: Anisocytosis 2+; Differential Comment SCANNED; Polychromasia RARE
[2025-02-27 13:35] LABS: Pro- Brain NATRIURETIC PEPTIDE 9003 pg/mL (<=1800)
[2025-02-27 14:00] LABS: AST(SGOT) 50 U/L (<=31); Alanine Aminotransfer ALT/SGPT 33 U/L (<=34); Albumin, Serum 4.1 g/dL (3.4-4.8); Alkaline Phosphatase 123 U/L (35-104); Anion Gap 18 (5-15); BUN 108 mg/dL (4-19); BUN/Creat Ratio 56.8 RATIO (10-20); Calcium,Total 9.9 mg/dL (7.6-11.0); Carbon Dioxide 25.4 mmol/L (21.0-32.0); Chloride 90 mmol/L (98-108); Globulin 3.4 g/dL (2.2-4.2); Glucose 290 mg/dL (70-99); Potassium 3.6 mmol/L (3.3-5.1)
[2025-02-27 19:21] LABS: Xtra Tube Kwok EXTRA TUBE
== END | disposition home or self-care (01) ==
PROVIDERS: PCP Family Medicine Geriatric Medicine; Visit Provider Family Medicine Geriatric Medicine
DX: R53.83 Other fatigue (principal)
CPT/HCPCS: 36415; 80053; 81001; 83880; 84443; 85025; 87077; 87086; 87088; 87186

== ENCOUNTER 2025-03-01 08:49 | Outpatient (RCR) | payer MEDICARE, SELFPAY ==
[2025-03-01 09:12] VITALS: BP 125/65; PULSE 79; RESP 18; TEMP 36.2
--- NOTE | 2025-03-01 12:49 | HP.PCM_ITS ---
History of Present Illness Date of Service: 03/01/25 Chief Complaint: Bilateral lower extremity ulcers History of Wound: Ms. Yates is a 70-year-old who was referred to the wound center by her PCP due to nonhealing bilateral lower extremity ulceration. Said to have started months ago during a prolonged hospitalization in [place]. Bilateral foot/heel and right kaur. She has been applying Neosporin without any significant improvement. She reports a history of vascular surgery in [place]. 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 No significant tobacco use, smoked for about 6 months quit over 50 years ago. She reports a history of "borderline diabetes". Currently not on medication. Appetite is fair, concern for recent significant weight loss.. Otherwise, she states that she feels well. [facility] Medical History (Updated 03/01/25 @ 21:[address] Ebony Cerrato MD) Type 2 diabetes mellitus Ulcer of left foot with fat layer exposed Ulcer of right foot with fat layer exposed Ulcer of right lower extremity with fat layer exposed Acute on chronic heart failure with preserved ejection fraction Hypokalemia Fatigue Vitamin D deficiency Rheumatoid arthritis Insomnia Mitral valve regurgitation Tachy-lionel syndrome Rheumatic fever GERD (gastroesophageal reflux disease) Chronic renal failure (CRF), stage 3b Cervical cancer Iron deficiency anemia Non-sustained ventricular tachycardia Pulmonary hypertension Rectal bleed Presence of Watchman left atrial appendage closure device Pacemaker Sinus node dysfunction Bradycardia History of cardioversion MONIQUE (acute kidney injury) Skin tear of left forearm without complication Skin cancer Cardiac arrhythmia CHF exacerbation Brain aneurysm Anxiety Family history of brain aneurysm PAD (peripheral artery disease) PAF (paroxysmal atrial fibrillation) Obesity (BMI 30.0-34.9) Laceration of right middle finger Heart disease Diabetes History of cancer Fever HTN (hypertension) Diabetes mellitus type 2 in obese Chest pain, musculoskeletal HLD (hyperlipidemia) URI (upper respiratory infection) Bronchospasm with bronchitis, acute Home Medications Medication Instructions Recorded Last Taken Type atorvastatin 40 mg tablet 40 mg PO DAILY daily 5 Unknown History clopidogrel 75 mg tablet 75 mg PO DAILY 01/07/25 Unkn own History bumetanide 2 mg tablet 2 mg PO BID #60 tabs 5 Unknown Rx levothyroxine 25 mcg tablet 25 mcg PO QDAY 02/05/25 Un known History metoprolol succinate 50 mg 50 mg PO BID 02/05/25 Unkno wn History tablet,extended release 24 hr vitamin B complex 1 tab PO QDAY 02/05/25 Unkno wn History ascorbic acid (vitamin C) 500 mg 500 mg PO QDAY Unknown History tablet aspirin 81 mg tablet,delayed 81 mg PO QDAY 02/14/25 Un known History release (Adult Aspirin Regimen) metolazone 5 mg tablet 5 mg PO QDAY PRN edema 02/14 Unknown History pantoprazole 40 mg tablet,delayed 40 mg PO QDAY stomac h 02/14/25 Unknown History release polysaccharide iron complex 150 mg 150 mg PO QDAY 02/02 09/26 Unknown History iron capsule (Ferrex) potassium chloride 10 mEq 10 meq PO QDAY 02/14/25 Unkn own History tablet,extended release(part/cryst) spironolactone 25 mg tablet 12.5 mg PO BID daily 02/14 Unknown History cephalexin 500 mg capsule 500 mg PO Q8 03/01/25 Unknow n History doxycycline hyclate 100 mg tablet 100 mg PO BID Unknown History fluconazole 150 mg tablet 150 mg PO Q3D 03/01/25 Unkno wn History furosemide 40 mg tablet 40 mg PO BID 03/01/25 Unknow n History levothyroxine 50 mcg tablet 50 mcg PO DAILY 03/01/25 U nknown History mirtazapine 7.5 mg tablet 7.5 mg PO QHS 03/01/25 Unkno wn History Allergy/AdvReac Type Severity Reaction Status Date / Time propofol AdvReac Mild Low blood Verified 03/01/25 09:07 pressure Family History Father Heart disease High cholesterol Myocardial infarction, Onset Age: 58 Mother Heart disease Surgical History Hx of abdominal surgery History of mastoidectomy History of cardiac radiofrequency ablation history skin cancer surgery history bilateral ear surgeries History of hysterectomy H/O aortic valve replacement Social History household members: spouse number of children: 1 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 occupational status: 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 Smoking Status: Former smoker alcohol intake: current alcohol intake frequency: holidays/special occasions only Alcohol type: wine substance use type: does not use ROS Constitutional Constitutional: Denies frequent falls, headache(s), increased appetite or lethargy Eyes Eyes: Denies diplopia, discharge from eye(s), double vision, dry eyes, e xophthalmos or eye pain ENT HEENT: Denies dysphagia, epistaxis, foreign body in nose, halitosis, headache(s) or hoarseness Cardiovascular Cardiovascular: Reports edema; Denies cold extremities, cyanosis, diaphoresis or dyspnea at rest Respiratory/Chest Respiratory/Chest: Denies difficulty clearing secretions, dry cough, excessive phlegm production, hemoptysis, hoarseness or inability to speak Gastrointestinal Gastrointestinal: Denies chewing difficulty, coffee ground emesis, dry heaves, excessive flatus or fecal incontinence Genitourinary Genitourinary: Denies abdominal discomfort, anuria, burning urination, contractions or flank pain Musculoskeletal Musculoskeletal: Denies atrophy, difficulty walking, muscle spasms, tingling or tremors Integumentary Integumentary: Denies change in pigmentation, erythema, furuncle, hirsutism or jaundice Neurologic Neurologic: Denies abnormal speech, behavior changes, burning sensations, confusion, convulsions or tremor(s) Psychiatric Psychiatric: Denies auditory hallucinations, behavioral changes, panic attacks, paranoia, tactile hallucinations or visual hallucinations Endocrine Endocrinology: Denies cold intolerance, deepening of the voice, excessive sweating, flushing, heat intolerance or increase in ring/shoe/hat size Hematologic/Lymphatic Hematologic/Lymphatic: Denies easy bleeding or lymphadenopathy Allergic/Immunologic Allergic/Immunologic: Denies lip swelling, rhinitis, throat swelling, tongue swelling, hives or wheezing Vital Signs Vital Signs Vital Signs: 03/01/25 09:12 Temperature 97.1 F L Temperature Source Temporal Pulse Rate 79 Respiratory Rate 18 Blood Pressure 125/65 H Blood Pressure Mean 85 Blood Pressure Source Monitor Blood Pressure Position Semi-Fowlers Blood Pressure Location Left Arm Oxygen Delivery Method Room Air Physical Exam Const alert, oriented x3 and no apparent distress General Appearance: cooperative, well kempt and well developed HEENT normocephalic and head/scalp atraumatic Eyes EOMs intact bilaterally Neck full ROM General: normal visual inspection Resp normal respiratory effort and normal air movement Effort and Inspection: able to speak in complete sentences Cardio regular rate, S1 normal heart sound and S2 normal heart sound GI soft to palpation and non-tender Skin Wounds: wounds noted size Size: See clinical note, bed with slough, margins well approximated, no odor, open and surrounding erythema Neuro oriented x3, CN's II-XII intact bilaterally, moves all extremities and no focal motor deficits Psych mental status grossly normal, thought process normal, cooperative and affect normal Debridement Note Debridement Note Wound debrided: Right kaur Type of Debridement: Excisional debridement Anesthesia Used: 5% Lidocaine Gel Depth: Down to and including healthy tissue and in the subcutaneous layer Percentage of wound debrided: 100 Instrument Used: 3mm curette Tissue Removed: Slough and devitalized tissue Severity: Fat Layer Exposed Amount of bleeding with debridement: Mild Bleeding Controlled with: Pressure Patient tolerated procedure: Patient tolerated procedure well Post-Debridement Measurements and Additional Note: Post-Debridement Measurements/Treatment - Nurse 1 - General Ulcer Assessment Start: 03/01/25 09:07 Freq: Status: Active Protocol: TOMASZ Activity Type Activity Date Activity User E-sign Co-sign Detail Recorded Client Recorded Date Recorded By Document 03/01/25 09:12 MADYSON [id number] 03/01/25 09:35 03/01/25 09:12 - Today's Visit Information Type of service Initial Visit Arrival Mode Ambulatory Accompanied by Patient Identification Verified (Name & Yes ) Vital Signs Temperature (97.8 F-99.1 F) 97.1 F L Temperature Source Temporal Pulse Rate (60-100) 79 Pulse Location Monitor Respiratory Rate (12-18) 18 Respiratory rate source Observation Oxygen Delivery Method Room Air Blood Pressure (90/60-120/80) 125/65 H Blood Pressure Mean 85 Source Monitor Position Semi-Fowlers Blood Pressure Location Left Arm History Since Last Visit- (Skip if this is Patient's initial visit) Have you changed medications since your No last visit? Any new allergies or adverse reactions No Had a fall/change in ADL's that may No increase risk of falls Signs or symptoms of abuse and/or No neglect since last visit Have you been in the hospital since your No last visit? Left Footwear Regular Shoe Right Footwear Regular Shoe Pain Scale: 0-10 Numeric Is Patient Pain Free? No bethel heels -Intensity 8 -Alleviating Factors/Interventions Medication, Inactivity/ Resting Communication Assessment Preferred language Turkmen [employer] Player Required No Able to Read Yes Able to Write Yes Communication Tools None Caregiver Communication Skills No Impairment Impairment Right Hearing Abillity Normal Left Hearing Abillity Normal Visual Assistive Devices Glasses Teaching Assessment Preferences Verbal,Written, Demonstration Barriers to Learning None Readiness To Learn Excellent Willingness to Engage in Self Management High Activies Readiness to Engage in Self Management High Activities Anxiety Level Calm Cooperation Cooperative Perception Coherent Interest in Health Problem Asks Questions Education Importance Acknowledges Need Does Patient Smoke tobacco or other No substances Smoking Status Former smoker Is Patient Diabetic No Functional Assessment Recent Decline in Ability to Perform Denies Any Declines Culture/Restorationist/College 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 College Or University Registrar to contact place of jewish No WC - Nurse 1 - General Ulcer Measurement Start: 03/01/25 09:07 Freq: Status: Active Protocol: Activity Type Activity Date Activity User E-sign Co-sign Detail Recorded Client Recorded Date Recorded By Document 03/01/25 09:12 MADYSON [id number] 03/01/25 09:35 MADYSON 03/01/25 09:12 Wound Center Nurse 1 #3 LT HEEL -Current Size (cm) - Length 0.1 -Current Size (cm) - Width 0.4 -Current Size (cm) - Depth 0.1 -Total Square Cm 0.04 -Date of Last Picture (Recall this 03/01/25 field) -Exudate Amt Small -Exudate Type Serosanguineous -Wound Margin Thickened -Granulation Amt Small (1-33%) -Granulation Quality [place] Pocket -Necrosis Amt Large (67-100%) -Necrotic Tissue Type Adherent Slough -Texture (Violet-wound Skin Appearance) Assessed,Callus -Moisture (Violet-wound Skin Appearance) Assessed,Dry/ Scaly -Color (Violet-wound Skin Appearance) Assessed -Temperature (Violet-wound Skin No Abnormality Appearance) (Pt Warm) -Tenderness on Palpation (Violet-wound No Skin Appearance) -Ulcer Cleansing Rinsed/ Irrigated with Saline -Foul Odor after Cleansing No -Anesthetic Used 5% Lidocaine Gel #2 RT HEEL -Current Size (cm) - Length 0.2 -Current Size (cm) - Width 1 -Current Size (cm) - Depth 0.2 -Total Square Cm 0.2 -Date of Last Picture (Recall this 03/01/25 field) -Exudate Amt Small -Exudate Type Serosanguineous -Wound Margin Thickened -Granulation Amt Small (1-33%) -Granulation Quality [place] Pocket -Necrosis Amt Large (67-100%) -Necrotic Tissue Type Adherent Slough -Texture (Violet-wound Skin Appearance) Assessed,Callus -Moisture (Violet-wound Skin Appearance) Assessed,Dry/ Scaly -Color (Violet-wound Skin Appearance) Assessed -Temperature (Violet-wound Skin No Abnormality Appearance) (Pt Warm) -Tenderness on Palpation (Violet-wound No Skin Appearance) -Ulcer Cleansing Rinsed/ Irrigated with Saline -Foul Odor after Cleansing No -Anesthetic Used 5% Lidocaine Gel #1 RT KAUR -Current Size (cm) - Length 0.5 -Current Size (cm) - Width 0.5 -Current Size (cm) - Depth 0.1 -Total Square Cm 0.25 -Date of Last Picture (Recall this 03/01/25 field) -Exudate Amt Medium -Exudate Type Serosanguineous -Wound Margin Distinct, Outline Attached -Granulation Amt Large (67-100%) -Granulation Quality [place] Pocket,Red -Texture (Violet-wound Skin Appearance) Assessed -Moisture (Violet-wound Skin Appearance) Assessed -Color (Violet-wound Skin Appearance) Assessed, Hemosiderin Staining -Temperature (Violet-wound Skin No Abnormality Appearance) (Pt Warm) -Tenderness on Palpation (Violet-wound No Skin Appearance) -Ulcer Cleansing Rinsed/ Irrigated with Saline -Foul Odor after Cleansing No -Anesthetic Used 5% Lidocaine Gel Right Calf (cm) 26.7 Right Ankle (cm) 17.5 Left Calf (cm) 27.5 Left Ankle (cm) 18.5 WC - Nurse 2 - General Ulcer CM Notes Start: 03/01/25 09:07 Freq: Status: Active Protocol: Activity Type Activity Date Activity User E-sign Co-sign Detail Recorded Client Recorded Date Recorded By Document 03/01/25 09:52 [id number] 03/01/25 10:09 03/01/25 09:52 Wound Center Nurse 2 #4 L POSTERIOR FOOT -Time 10:08 -Correct Patient Yes -Correct Side, Site, Position Yes -Correct Procedure Yes -Procedure Performed Yes -Type of Procedure Debridement -Clinical Debridement Subcutaneous -Tissue Removed Subcutaneous -Post Debridement (cm) - Length 0.9 -Post Debridement (cm) - Width 0.2 -Post Debridement (cm) - Depth 0.1 -Total Square (Post) (cm) 0.18 -Area of Debridement (cm) - Length 0.9 -Area of Debridement (cm) - Width 0.2 -Total Square (Area) (cm) 0.18 -Tunneling No -Undermining/Tunneling No -Circular Undermining No -Wound/Ulcer Outcome Not Healed -Ulcer Cleansing Rinsed/ Irrigated with Saline -Foul Odor after Cleansing No -Bioengineered Tissue No -Bleeding Controlled with Pressure -Treatment Response Procedure Tolerated Well -Offloading No -Debridement - Subq, 1st 20sq cm No #3 LT HEEL -Time 09:52 -Correct Patient Yes -Correct Side, Site, Position Yes -Correct Procedure Yes -Procedure Performed Yes -Type of Procedure Debridement -Clinical Debridement Subcutaneous -Tissue Removed Subcutaneous -Post Debridement (cm) - Length 0.2 -Post Debridement (cm) - Width 1.6 -Post Debridement (cm) - Depth 0.1 -Total Square (Post) (cm) 0.32 -Area of Debridement (cm) - Length 0.2 -Area of Debridement (cm) - Width 1.6 -Total Square (Area) (cm) 0.32 -Tunneling No -Undermining/Tunneling No -Circular Undermining No -Wound/Ulcer Outcome Not Healed -Ulcer Cleansing Rinsed/ Irrigated with Saline -Foul Odor after Cleansing No -Bioengineered Tissue No -Bleeding Controlled with Pressure -Treatment Response Procedure Tolerated Well -Offloading No -Debridement - Subq, 20sq cm No #2 RT HEEL -Time 09:52 -Correct Patient Yes -Correct Side, Site, Position Yes -Correct Procedure Yes -Procedure Performed Yes -Type of Procedure Debridement -Clinical Debridement Subcutaneous -Tissue Removed Subcutaneous -Post Debridement (cm) - Length 2.2 -Post Debridement (cm) - Width 0.3 -Post Debridement (cm) - Depth 0.1 -Total Square (Post) (cm) 0.66 -Area of Debridement (cm) - Length 2.2 -Area of Debridement (cm) - Width 0.3 -Total Square (Area) (cm) 0.66 -Tunneling No -Undermining/Tunneling No -Circular Undermining No -Wound/Ulcer Outcome Not Healed -Ulcer Cleansing Rinsed/ Irrigated with Saline -Foul Odor after Cleansing No -Bioengineered Tissue No -Bleeding Controlled with Pressure -Treatment Response Procedure Tolerated Well -Offloading No -Debridement - Subq, 1st 20sq cm Yes #1 RT KAUR -Time 09:52 -Correct Patient Yes -Correct Side, Site, Position Yes -Correct Procedure Yes -Procedure Performed Yes -Type of Procedure Debridement -Clinical Debridement Subcutaneous -Tissue Removed Subcutaneous -Post Debridement (cm) - Length 0.7 -Post Debridement (cm) - Width 0.8 -Post Debridement (cm) - Depth 0.1 -Total Square (Post) (cm) 0.56 -Area of Debridement (cm) - Length 0.7 -Area of Debridement (cm) - Width 0.8 -Total Square (Area) (cm) 0.56 -Tunneling No -Undermining/Tunneling No -Circular Undermining No -Wound/Ulcer Outcome Not Healed -Ulcer Cleansing Rinsed/ Irrigated with Saline -Foul Odor after Cleansing No -Bioengineered Tissue No -Bleeding Controlled with Pressure -Treatment Response Procedure Tolerated Well -Offloading No -Debridement - Subq, 1st 20sq cm Yes Pain Scale: 0-10 Numeric Is Patient Pain Free? Yes - Nurse 3 - General Ulcer D/C NN Start: 03/01/25 09:07 Freq: Status: Active Protocol: Activity Type Activity Date Activity User E-sign Co-sign Detail Recorded Client Recorded Date Recorded By Document 03/01/25 10:32 ND [id number] 03/01/25 10:36 MT 03/01/25 10:32 Wound Care Center Nurse 3 #4 L POSTERIOR FOOT -Foul Odor after Cleansing No -Negative Pressure Wound Therapy N/A -Primary Dressing Applied Promogran, Silicone Border Foam 4x4 -Other Dressing ADAPTIC -Promogran 1 -Silicone Border Foam 4x4 3 #2 RT HEEL -Foul Odor after Cleansing No -Negative Pressure Wound Therapy N/A -Primary Dressing Applied Promogran, Silicone Border Foam 4x4 -Promogran 1 -Silicone Border Foam 4x4 3 Pain Scale: 0-10 Numeric Is Patient Pain Free? Yes - Visit Discharge Discharge Condition Stable Ambulatory Status Ambulatory Transportation Private Auto Medication Reconcilliation completed & No provided to patient/care provider Clinical Summary of Care Provided Yes Additional Wound Wound debrided: Right Heel/foot Type of Debridement: Excisional debridement Anesthesia Used: 5% Lidocaine Gel Depth: Down to and including healthy tissue and in the subcutaneous layer Percentage of wound debrided: 100 Instrument Used: 5mm curette Tissue Removed: Slough and devitalized tissue Severity: Fat Layer Exposed Amount of bleeding with debridement: Mild Bleeding Controlled with: Pressure Patient tolerated procedure: Patient tolerated procedure well Additional Wound Wound debrided: Left Heel Anesthesia Used: 5% Lidocaine Gel Depth: Down to and including healthy tissue and in the subcutaneous layer Percentage of wound debrided: 100 Instrument Used: 5mm curette Tissue Removed: Slough and devitalized tissue Severity: Fat Layer Exposed Amount of bleeding with debridement: Mild Bleeding Controlled with: Pressure Patient tolerated procedure: Patient tolerated procedure well Additional Wound Wound debrided: Left Posterior Foot Type of Debridement: Excisional debridement Anesthesia Used: 5% Lidocaine Gel Depth: Down to and including healthy tissue and in the subcutaneous layer Percentage of wound debrided: 100 Instrument Used: 5mm curette Tissue Removed: Slough and devitalized tissue Severity: Fat Layer Exposed Amount of bleeding with debridement: Mild Bleeding Controlled with: Pressure Patient tolerated procedure: Patient tolerated procedure well Assessment/Plan Assessment/Plan (1) Ulcer of right lower extremity with fat layer exposed: CODE(S): L97.912 - Non-pressure chronic ulcer of unspecified part of right lower leg with fat layer exposed (2) Ulcer of right foot with fat layer exposed: CODE(S): L97.512 - Non-pressure chronic ulcer of other part of right foot with fat layer exposed (3) Ulcer of left foot with fat layer exposed: CODE(S): L97.522 - Non-pressure chronic ulcer of other part of left foot with fat layer exposed (4) PAD (peripheral artery disease): CODE(S): I73.9 - Peripheral vascular disease, unspecified (5) PAF (paroxysmal atrial fibrillation): CODE(S): I48.0 - Paroxysmal atrial fibrillation (6) Type 2 diabetes mellitus: CODE(S): E11.9 - Type 2 diabetes mellitus without complications (7) Chronic kidney disease, stage 3b: CODE(S): N18.32 - Chronic kidney disease, stage 3b PLAN: Plan Debridement done as documented above, procedure was well-tolerated. Bilateral lower extremity ulcerations. Right foot appears to be due to dry skin/fissuring more so than pressure. History of peripheral arterial disease as well likely complicating healing. History of significant lower extremity edema which has improved following diuresis but still some degree of edema. Very complicated/complex past medical history. No clinical concern for infection on examination, no cultures done. For now, moistened Promogran to all areas of ulceration, cover bilateral foot with Adaptic and then foam dressing. Cover kaur with foam dressing. Strongly advised that they moisturize both feet adequately prior to dressing application, patient and voiced understanding. She reports a history of borderline diabetes however, records reviewed and her last A1c was at 7. Currently not on any medication, continue follow-up with primary care physician. Optimal diabetes control recommended. Optimal dietary intake also discussed, states that she takes boost to help supplement her diet which has reduced somewhat. Recommend increase protein intake, vitamin C, D and zinc. Light compression with single-layer Tubigrip's. Leg elevation discussed and exercise as tolerated. Their questions were answered, they were advised to let us know if he had any further questions or concerns. Follow-up in a week or sooner if needed. This note was generated with [employer] dictation software. It may contain incorrect words, spelling, and punctuation that were not noted in checking the note before signing.
--- NOTE | 2025-03-02 08:44 | WC ---
PHOTO-BEULAH RAMIREZ 03/01/25
--- NOTE | 2025-03-02 08:46 | WC ---
PHOTO-RIGHT HEEL 03/01/25
--- NOTE | 2025-03-02 08:51 | WC ---
PHOTO-LEFT HEEL 03/01/28
== END 2025-03-04 23:59 | disposition home or self-care (01) ==
LOC: WC 08:49
PROVIDERS: PCP Family Medicine Geriatric Medicine; Referring Provider Family Medicine Geriatric Medicine; Visit Provider Internal Medicine
DX: E11.621 Type 2 diabetes mellitus with foot ulcer (principal); L97.512 Non-pressure chronic ulcer of other part of right foot with fat layer exposed; L97.412 Non-pressure chronic ulcer of right heel and midfoot with fat layer exposed; L97.422 Non-pressure chronic ulcer of left heel and midfoot with fat layer exposed; E11.51 Type 2 diabetes mellitus with diabetic peripheral angiopathy without gangrene
CPT/HCPCS: 11042; 99213; G0463

== ENCOUNTER → 2025-03-02 | Outpatient (CLI) | payer MEDICARE, SELFPAY ==
[2025-03-02 11:00] LABS: Anion Gap 14 (5-15); BUN 81 mg/dL (4-19); BUN/Creat Ratio 45.3 RATIO (10-20); Calcium,Total 9.4 mg/dL (7.6-11.0); Carbon Dioxide 25.2 mmol/L (21.0-32.0); Chloride 94 mmol/L (98-108); Glucose 193 mg/dL (70-99); Potassium 4.2 mmol/L (3.3-5.1)
== END | disposition home or self-care (01) ==
LOC: POLAB3 10:03
PROVIDERS: PCP Family Medicine Geriatric Medicine; Referring Provider Family Medicine Geriatric Medicine; Visit Provider Family Medicine Geriatric Medicine
DX: N17.9 Acute kidney failure, unspecified (principal)
CPT/HCPCS: 36415; 80048

== ENCOUNTER → 2025-03-09 | Outpatient (CLI) | payer MEDICARE, SELFPAY ==
[2025-03-09 10:39] LABS: Hematocrit 28.3 % (37-47); Hemoglobin 8.9 g/dL (12.0-15.0); Immature Granulocytes Count 0.030 X10^3/uL (0.0-0.0); Mean Corp Hgb Conc 31.4 g/dL (32-36); Mean Corpuscular Volume 89.3 fL (81-99); Mean Platelet Vol. 9.8 fl (6.2-12.0); NRBC Flagged by Analyzer 0 % (0-5); POSITIVE MORPHOLOGY YES; Platelet Count 191 K/mm3 (150-450); RBC Distribution Width CV 24.9 % (11.6-14.6); RBC Distribution Width SD 81.9 fl (35.1-43.9); Red Blood Count 3.17 M/mm3 (4.2-5.4); White Blood Count 6.1 K/mm3 (4.4-11.0)
[2025-03-09 10:40] LABS: Differential Indicated SCAN CRITERIA MET
[2025-03-09 11:04] LABS: Anisocytosis 2+; Differential Comment SCANNED; Reactive Lymphocyte 1+
[2025-03-09 11:16] LABS: Anion Gap 13 (5-15); BUN 50 mg/dL (4-19); BUN/Creat Ratio 27.6 RATIO (10-20); Calcium,Total 9.1 mg/dL (7.6-11.0); Carbon Dioxide 21.7 mmol/L (21.0-32.0); Chloride 97 mmol/L (98-108); Glucose 136 mg/dL (70-99); Potassium 5.0 mmol/L (3.3-5.1)
== END | disposition home or self-care (01) ==
LOC: LAB 10:02
PROVIDERS: PCP Family Medicine Geriatric Medicine; Referring Provider Family Medicine Geriatric Medicine; Visit Provider Family Medicine Geriatric Medicine
DX: R53.83 Other fatigue (principal)
CPT/HCPCS: 36415; 80048; 85025

== ENCOUNTER 2025-03-22 03:34 | Emergency (ER) | payer MEDICARE, SELFPAY ==
[2025-03-22 03:36] VITALS: BP 154/66; PULSE 83; RESP 16; TEMP 36.3; O2SAT 100; BMI 24.9
--- NOTE | 2025-03-22 03:55 | EX.ED.DYSGE1 ---
HPI History of Present Illness Chief Complaint: Wound Informant: patient and spouse/S.O. Narrative Narrative: Patient is a 69 female with past medical history of iron deficiency anemia chronic kidney disease and hypertension. She states a few days ago she bumped her right arm/elbow. She states that she sustained small abrasion/skin tears because of this. She reports she did not think much of this but since injuring it she has had persistent bleeding from the wounds. She states she cannot get them under control and based on the multiple days of bleeding is concerned and therefore comes in for evaluation. [facility] Medical History (Updated 03/22/25 @ 04:[address] Byron Bañuelos, DO) Anemia of chronic renal failure, stage 3 (moderate) Iron deficiency anemia due to chronic blood loss History of ESBL E. coli infection Type 2 diabetes mellitus Ulcer of left foot with fat layer exposed Ulcer of right foot with fat layer exposed Ulcer of right lower extremity with fat layer exposed Acute on chronic heart failure with preserved ejection fraction Hypokalemia Fatigue Vitamin D deficiency Rheumatoid arthritis Insomnia Mitral valve regurgitation Tachy-lionel syndrome Rheumatic fever GERD (gastroesophageal reflux disease) Chronic renal failure (CRF), stage 3b Cervical cancer Iron deficiency anemia Non-sustained ventricular tachycardia Pulmonary hypertension Rectal bleed Presence of Watchman left atrial appendage closure device Pacemaker Sinus node dysfunction Bradycardia History of cardioversion MONIQUE (acute kidney injury) Skin tear of left forearm without complication Skin cancer Cardiac arrhythmia CHF exacerbation Brain aneurysm Anxiety Family history of brain aneurysm PAD (peripheral artery disease) PAF (paroxysmal atrial fibrillation) Obesity (BMI 30.0-34.9) Laceration of right middle finger Heart disease Diabetes History of cancer Fever HTN (hypertension) Diabetes mellitus type 2 in obese Chest pain, musculoskeletal HLD (hyperlipidemia) URI (upper respiratory infection) Bronchospasm with bronchitis, acute Home Medications ?Medication ?Instructions ?Recorded ?Last Taken ?Type atorvastatin 40 mg tablet 40 mg PO DAILY daily 01/07/25 Unknown History clopidogrel 75 mg tablet 75 mg PO DAILY 01/07/25 Unknown History bumetanide 2 mg tablet 2 mg PO BID #60 tabs 01/08/25 Unknown Rx metoprolol succinate 50 mg 50 mg PO BID 02/05/25 Unknown History tablet,extended release 24 hr vitamin B complex 1 tab PO QDAY 02/05/25 Unknown History ascorbic acid (vitamin C) 500 mg 500 mg PO QDAY 02/14/25 Unknown History tablet aspirin 81 mg tablet,delayed 81 mg PO QDAY 02/14/25 Unknown History release (Adult Aspirin Regimen) metolazone 5 mg tablet 5 mg PO QDAY PRN edema 02/14/25 Unknown History pantoprazole 40 mg tablet,delayed 40 mg PO QDAY stomach 02/14/25 Unknown History release polysaccharide iron complex 150 mg 150 mg PO QDAY 02/14/25 Unknown History iron capsule (Ferrex) potassium chloride 10 mEq 10 meq PO QDAY 02/14/25 Unknown History tablet,extended release(part/cryst) spironolactone 25 mg tablet 12.5 mg PO BID daily 02/14/25 Unknown History levothyroxine 50 mcg tablet 50 mcg PO DAILY 03/01/25 Unknown History mirtazapine 7.5 mg tablet 7.5 mg PO QHS 03/01/25 Unknown History Allergy/AdvReac Type Severity Reaction Status Date / Time propofol AdvReac Mild Low blood Verified 03/22/25 03:36 pressure Family History Father Heart disease High cholesterol Myocardial infarction, Onset Age: 58 Mother Heart disease Surgical History Hx of abdominal surgery History of mastoidectomy History of cardiac radiofrequency ablation history skin cancer surgery history bilateral ear surgeries History of hysterectomy H/O aortic valve replacement Social History household members: spouse number of children: 1 current occupational status: retired 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 Smoking Status: Former smoker Tobacco: How many years used: 1 alcohol intake: current alcohol intake frequency: holidays/special occasions only Alcohol type: wine substance use type: does not use ROS ROS ED Constitutional Constitutional ED: Denies chills or fever(s) ENT ENT ED: Denies sore throat Cardiovascular Cardiovascular: Denies chest pain Respiratory/Chest Respiratory/Chest: Denies cough or dyspnea Gastrointestinal Gastrointestinal: Denies abdominal pain, diarrhea, nausea or vomiting Genitourinary Genitourinary ED: Reports dysuria Musculoskeletal Musculoskeletal: Denies myalgias Integumentary Reports other Details: Positive skin tear and bleeding right forearm/elbow Neurologic Neurologic: Denies headache(s) Hematologic/Lymphatic Hematologic/Lymphatic: Reports easy bleeding and easy bruising EXAM Physical Exam Const Vital Signs: 03/22/25 03:36 Temperature 97.4 F L Temperature Source Oral Pulse Rate 83 Respiratory Rate 16 Blood Pressure 154/66 H Blood Pressure Mean 95 Pulse Ox 100 Oxygen Delivery Method Room Air Positive well nourished and well developed General Appearance ED: well developed; Negative for pallor HEENT HEENT Narrative: Normocephalic atraumatic Eyes PERRL and EOMs intact bilaterally General Eye ED: Negative for pale conjunctiva Neck supple Resp normal respiratory effort and clear to auscultation bilaterally Cardio regular rate and regular rhythm Extremity Extremity Narrative: Right upper extremity is neurovascularly intact The patient has 4 separate small skin tears along the dorsal aspect of the right elbow and proximal forearm. Each tear is dermal layer deep and approximately 1 cm in length. There is mild/slow venous bleeding from each. No retained foreign body. No secondary findings to suggest infection. Neuro oriented x3, CN's II-XII intact bilaterally and no sensory deficits noted Sensorium / Orientation: alert Motor Exam: strength 5/5 throughout Psych mental status grossly normal Skin No no wounds Skin Narrative: Skin tears to the right elbow/forearm as documented above without surrounding soft tissue changes to suggest infection. General Skin Exam: Negative for pallor MDM MDM MDM Narrative Medical decision making narrative: Patient arrived to the ER hypertensive but has a past medical history of this and otherwise with stable vitals. History and exam is consistent with superficial skin tears without ligamentous or tendon damage or concern for open fracture. Chart review reveals the patient has chronic anemia but shows normal/stable platelets. Her persistent bleeding is most likely related to her Plavix use. As she had labs 9 days ago and vitals are stable and the bleeding is minimal I have low concern for acute on chronic anemia or thrombocytopenia and therefore do not feel the need to repeat laboratory studies. Physical exam also does not show any findings concerning for secondary infection such as cellulitis or abscess or fracture. The patient had the skin tears cleaned. Surgicel was then placed over top them following by a pressure wrap. This intervention should be sufficient in order to provide hemostasis. Therefore as there is low concern for acute on chronic blood loss or secondary infection and now the bleeding has been controlled there is no need for further intervention and she is otherwise safe for discharge History & Record Review Discussion w/independent historian: Patient and Significant other Discharge Plan Triage Chief Complaint: Wound ED Provider: Byron Bañuelos Dx/Rx/DC Orders Clinical Impression: Bleeding from wound, Antiplatelet or antithrombotic long-term use, Anemia of chronic disease, Chronic kidney disease, HTN (hypertension), Type 2 diabetes mellitus Instructions: ED Skin Tear (Skin Avulsion) Prescriptions: No Action vitamin B complex Tablet 1 tab PO QDAY metoprolol succinate 50 mg tablet extended release 24 hr 50 mg PO BID polysaccharide iron complex [Ferrex 150] 150 mg iron capsule 150 mg PO QDAY ascorbic acid (vitamin C) 500 mg tablet 500 mg PO QDAY aspirin [Adult Aspirin Regimen] 81 mg tablet,delayed release (DR/EC) 81 mg PO QDAY potassium chloride 10 mEq tablet,ER particles/crystals 10 meq PO QDAY metolazone 5 mg tablet 5 mg PO QDAY PRN (Reason: edema) Rx Instructions: goal weight 136 lb levothyroxine 50 mcg tablet 50 mcg PO DAILY mirtazapine 7.5 mg tablet 7.5 mg PO QHS clopidogrel 75 mg tablet 75 mg PO DAILY atorvastatin 40 mg tablet 40 mg PO DAILY bumetanide 2 mg tablet 2 mg PO BID Qty: 60 0RF pantoprazole 40 mg tablet,delayed release (DR/EC) 40 mg PO QDAY spironolactone 25 mg tablet 12.5 mg PO BID Primary Care Provider: Vincent Flores Chi Referrals: Vincetn Flores Chi, MD [Primary Care Provider, Geriatrics] Activity Restrictions/Additional Instructions: Please keep the Surgicel and pressure wrap on for the next 12 hours. When you removed the wrap the Surgicel may look black and this is normal as it is a chemical reaction with the blood. If the Surgicel does not come off when you remove the pressure wrap you may use a warm washcloth or wash the area to help remove it. Afterwards please use the nonstick gauze pads to cover the wound and help with healing and prevent reopening the skin tears. Please return to the ER should you have any further concerns Print Language: Vietnamese Disposition Disposition: Home, Self Care Discharge Date/Time: 03/22/25 04:03
[2025-03-22 03:56] VITALS: BP 161/65; PULSE 81; RESP 18; TEMP 36.6; O2SAT 99
== END 2025-03-22 04:03 | disposition home or self-care (01) ==
LOC: ED 04:01
PROVIDERS: Emergency Provider Emergency Medicine; PCP Family Medicine Geriatric Medicine; Visit Provider Emergency Medicine
DX: S51.811A Laceration without foreign body of right forearm, initial encounter (principal); I13.0 Hypertensive heart and chronic kidney disease with heart failure and stage 1 through stage 4 chronic kidney disease, or unspecified chronic kidney disease; I50.33 Acute on chronic diastolic (congestive) heart failure; E11.22 Type 2 diabetes mellitus with diabetic chronic kidney disease; N18.30 Chronic kidney disease, stage 3 unspecified; E78.5 Hyperlipidemia, unspecified; Z87.891 Personal history of nicotine dependence; D63.1 Anemia in chronic kidney disease; K21.9 Gastro-esophageal reflux disease without esophagitis; Z79.02 Long term (current) use of antithrombotics/antiplatelets; D50.9 Iron deficiency anemia, unspecified; W22.09XA Striking against other stationary object, initial encounter
CPT/HCPCS: 99282

== ENCOUNTER 2025-03-29 11:00 | Outpatient (RCR) | payer MEDICARE, SELFPAY ==
[2025-03-08 09:53] VITALS: BP 145/40; PULSE 75; RESP 18; TEMP 36
--- NOTE | 2025-03-08 12:34 | PCM.WC.PN ---
History of Present Illness Date of Service: 03/08/25 Chief Complaint: Bilateral lower extremity ulcers History of Wound: Ms. Yates is a 70-year-old who was referred to the wound center by her PCP due to nonhealing bilateral lower extremity ulceration. Said to have started months ago during a prolonged hospitalization in [place]. Bilateral foot/heel and right kaur. She has been applying Neosporin without any significant improvement. She reports a history of vascular surgery in [place]. 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 No significant tobacco use, smoked for about 6 months quit over 50 years ago. She reports a history of "borderline diabetes". Currently not on medication. Appetite is fair, concern for recent significant weight loss.. Otherwise, she states that she feels well. Progress of Wound: No significant concerns since her last visit. Diuretics were on hold and so increased lower extremity swelling. Medication being managed by her primary care physician. Overall, stable ulcers. Objective Data Objective Data Vital Signs: Vital Signs Temp Pulse Resp BP O2 Del Method 96.8 F L 75 18 145/40 H Room Air 03/08/25 09:53 03/08/25 09:53 03/08/25 09:53 03/08/25 09:53 03/08/25 09:53 Oxygen Delivery Method Room Air Charges/Coding Procedures Integumentary 111xxx-113xx: [id number] Etelvina subq tissue 20 sq cm/< Physical Exam Const alert, oriented x3 and no apparent distress General Appearance: cooperative, well kempt and well developed HEENT normocephalic and head/scalp atraumatic Eyes EOMs intact bilaterally Neck full ROM General: normal visual inspection Resp normal respiratory effort Effort and Inspection: able to speak in complete sentences Skin Wounds: wounds noted size Size: See clinical note, bed with slough, margins well approximated, no odor, open and surrounding erythema Neuro oriented x3, CN's II-XII intact bilaterally, moves all extremities and no focal motor deficits Psych mental status grossly normal, thought process normal, cooperative and affect normal Debridement Note Debridement Note Wound debrided: Right kaur Type of Debridement: Excisional debridement Anesthesia Used: 5% Lidocaine Gel Depth: Down to and including healthy tissue and in the subcutaneous layer Percentage of wound debrided: 100 Instrument Used: 3mm curette Tissue Removed: Slough and devitalized tissue Severity: Fat Layer Exposed Amount of bleeding with debridement: Mild Bleeding Controlled with: Pressure Patient tolerated procedure: Patient tolerated procedure well Post-Debridement Measurements and Additional Note: Post-Debridement Measurements/Treatment - Nurse 1 - General Ulcer Assessment Start: 03/08/25 09:42 Freq: Status: Active Protocol: TOMASZ Activity Type Activity Date Activity User E-sign Co-sign Detail Recorded Client Recorded Date Recorded By Document 03/08/25 09:53 [email or web address] [id number] 03/08/25 10:07 03/08/25 09:53 - Today's Visit Information Type of service Follow-up Visit (Physician/FORM WORKER ) Arrival Mode Ambulatory Accompanied by Patient Identification Verified (Name & Yes ) Vital Signs Temperature (97.8 F-99.1 F) 96.8 F L Temperature Source Temporal Pulse Rate (60-100) 75 Pulse Location Monitor Respiratory Rate (12-18) 18 Respiratory rate source Observation Oxygen Delivery Method Room Air Blood Pressure (90/60-120/80) 145/40 H Blood Pressure Mean (mm Hg) 75 Source Monitor Position Sitting Blood Pressure Location Right Arm History Since Last Visit- (Skip if this is Patient's initial visit) Have you changed medications since your No last visit? Any new allergies or adverse reactions No Had a fall/change in ADL's that may No increase risk of falls Signs or symptoms of abuse and/or No neglect since last visit Have you been in the hospital since your No last visit? Has dressing in place as prescribed Yes Has compression in place as prescribed Yes Has offloadiing in place as prescribed N/A Experienced any changes in pain level or No management Left Footwear Regular Shoe Right Footwear Regular Shoe Pain Scale: 0-10 Numeric Is Patient Pain Free? Yes - Nurse 1 - General Ulcer Measurement Start: 03/08/25 09:42 Freq: Status: Active Protocol: Activity Type Activity Date Activity User E-sign Co-sign Detail Recorded Client Recorded Date Recorded By Document 03/08/25 09:53 [email or web address] [id number] 03/08/25 10:07 03/08/25 09:53 Wound Center Nurse 1 #4 L POSTERIOR FOOT -Current Size (cm) - Length 0.1 -Current Size (cm) - Width 0.1 -Current Size (cm) - Depth 0 -Total Square Cm 0.01 -Date of Last Picture (Recall this 03/08/25 field) -Texture (Violet-wound Skin Appearance) Assessed,Callus -Moisture (Violet-wound Skin Appearance) Assessed,Dry/ Scaly -Color (Violet-wound Skin Appearance) Assessed -Temperature (Violet-wound Skin No Abnormality Appearance) (Pt Warm) -Tenderness on Palpation (Violet-wound No Skin Appearance) -Ulcer Cleansing Soap and Water -Foul Odor after Cleansing No #3 LT HEEL -Current Size (cm) - Length 0.1 -Current Size (cm) - Width 0.1 -Current Size (cm) - Depth 0 -Total Square Cm 0.01 -Exudate Amt None Present -Texture (Violet-wound Skin Appearance) Assessed,Callus -Moisture (Violet-wound Skin Appearance) Assessed,Dry/ Scaly -Color (Violet-wound Skin Appearance) Assessed -Temperature (Violet-wound Skin No Abnormality Appearance) (Pt Warm) -Tenderness on Palpation (Violet-wound No Skin Appearance) -Ulcer Cleansing Soap and Water -Foul Odor after Cleansing No #2 RT HEEL -Current Size (cm) - Length 0.2 -Current Size (cm) - Width 1.5 -Current Size (cm) - Depth 0.1 -Total Square Cm 0.30 -Date of Last Picture (Recall this 03/08/25 field) -Exudate Amt Small -Exudate Type Serosanguineous -Wound Margin Distinct, Outline Attached -Granulation Amt Large (67-100%) -Granulation Quality [place] -Texture (Violet-wound Skin Appearance) Assessed,Callus -Moisture (Violet-wound Skin Appearance) Assessed,Dry/ Scaly -Color (Violet-wound Skin Appearance) Assessed -Temperature (Violet-wound Skin No Abnormality Appearance) (Pt Warm) -Tenderness on Palpation (Violet-wound No Skin Appearance) -Ulcer Cleansing Soap and Water -Foul Odor after Cleansing No -Anesthetic Used 5% Lidocaine Gel #1 RT KAUR CLUSTER -Current Size (cm) - Length 0.5 -Current Size (cm) - Width 9 -Current Size (cm) - Depth 0.1 -Total Square Cm 4.5 -Date of Last Picture (Recall this 03/08/25 field) -Exudate Amt Medium -Exudate Type Serosanguineous -Wound Margin Distinct, Outline Attached -Granulation Amt Medium (34-66%) -Granulation Quality Red -Necrosis Amt Medium (34-66%) -Necrotic Tissue Type Adherent Slough -Texture (Violet-wound Skin Appearance) Assessed -Moisture (Violet-wound Skin Appearance) Assessed -Color (Violet-wound Skin Appearance) Assessed, Hemosiderin Staining -Temperature (Violet-wound Skin No Abnormality Appearance) (Pt Warm) -Tenderness on Palpation (Violet-wound No Skin Appearance) -Ulcer Cleansing Soap and Water -Foul Odor after Cleansing No -Anesthetic Used 5% Lidocaine Gel Right Calf (cm) 28.5 Right Ankle (cm) 19.5 Left Calf (cm) 28.5 Left Ankle (cm) 18.5 WC - Nurse 2 - General Ulcer CM Notes Start: 03/08/25 09:42 Freq: Status: Active Protocol: Activity Type Activity Date Activity User E-sign Co-sign Detail Recorded Client Recorded Date Recorded By Document 03/08/25 10:43 [id number] 03/08/25 10:54 03/08/25 10:43 Wound Center Nurse 2 #4 L POSTERIOR FOOT -Time 10:53 -Correct Patient Yes -Correct Side, Site, Position Yes -Correct Procedure Yes -Procedure Performed Yes -Type of Procedure Debridement -Clinical Debridement Subcutaneous -Tissue Removed Subcutaneous -Post Debridement (cm) - Length 0.2 -Post Debridement (cm) - Width 1.2 -Post Debridement (cm) - Depth 0.1 -Total Square (Post) (cm) 0.24 -Area of Debridement (cm) - Length 0.2 -Area of Debridement (cm) - Width 1.2 -Total Square (Area) (cm) 0.24 -Tunneling No -Undermining/Tunneling No -Circular Undermining No -Wound/Ulcer Outcome Not Healed -Ulcer Cleansing Rinsed/ Irrigated with Saline -Foul Odor after Cleansing No -Bioengineered Tissue No -Bleeding Controlled with Pressure -Treatment Response Procedure Tolerated Well -Offloading No -Debridement - Subq, 1st 20sq cm Yes #3 LT HEEL -Time 10:53 -Correct Patient Yes -Correct Side, Site, Position Yes -Correct Procedure Yes -Procedure Performed Yes -Type of Procedure Debridement -Clinical Debridement Subcutaneous -Tissue Removed Subcutaneous -Post Debridement (cm) - Length 0.4 -Post Debridement (cm) - Width 0.2 -Post Debridement (cm) - Depth 0.1 -Total Square (Post) (cm) 0.08 -Area of Debridement (cm) - Length 0.4 -Area of Debridement (cm) - Width 0.2 -Total Square (Area) (cm) 0.08 -Tunneling No -Undermining/Tunneling No -Circular Undermining No -Wound/Ulcer Outcome Not Healed -Ulcer Cleansing Rinsed/ Irrigated with Saline -Foul Odor after Cleansing No -Bioengineered Tissue No -Bleeding Controlled with Pressure -Treatment Response Procedure Tolerated Well -Offloading No -Debridement - Subq, 1st 20sq cm No #2 RT HEEL -Time 10:47 -Correct Patient Yes -Correct Side, Site, Position Yes -Correct Procedure Yes -Procedure Performed Yes -Type of Procedure Debridement -Clinical Debridement Subcutaneous -Tissue Removed Subcutaneous -Post Debridement (cm) - Length 1.5 -Post Debridement (cm) - Width 0.3 -Post Debridement (cm) - Depth 0.1 -Total Square (Post) (cm) 0.45 -Area of Debridement (cm) - Length 1.5 -Area of Debridement (cm) - Width 0.3 -Total Square (Area) (cm) 0.45 -Tunneling No -Undermining/Tunneling No -Circular Undermining No -Wound/Ulcer Outcome Not Healed -Ulcer Cleansing Rinsed/ Irrigated with Saline -Foul Odor after Cleansing No -Bioengineered Tissue No -Bleeding Controlled with Pressure -Treatment Response Procedure Tolerated Well -Offloading No -Debridement - Subq, 1st 20sq cm No #1 RT KAUR CLUSTER -Time 10:45 -Correct Patient Yes -Correct Side, Site, Position Yes -Correct Procedure Yes -Procedure Performed Yes -Type of Procedure Debridement -Clinical Debridement Subcutaneous -Tissue Removed Subcutaneous -Post Debridement (cm) - Length 0.4 -Post Debridement (cm) - Width 0.5 -Post Debridement (cm) - Depth 0.1 -Total Square (Post) (cm) 0.20 -Area of Debridement (cm) - Length 0.4 -Area of Debridement (cm) - Width 0.5 -Total Square (Area) (cm) 0.20 -Tunneling No -Undermining/Tunneling No -Circular Undermining No -Wound/Ulcer Outcome Not Healed -Ulcer Cleansing Rinsed/ Irrigated with Saline -Foul Odor after Cleansing No -Bioengineered Tissue No -Bleeding Controlled with Pressure -Treatment Response Procedure Tolerated Well -Offloading No -Debridement - Subq, 1st 20sq cm No Pain Scale: 0-10 Numeric Is Patient Pain Free? Yes - Nurse 3 - General Ulcer D/C NN Start: 03/08/25 09:42 Freq: Status: Active Protocol: Activity Type Activity Date Activity User E-sign Co-sign Detail Recorded Client Recorded Date Recorded By Document 03/08/25 11:17 NM [id number] 03/08/25 11:20 NM 03/08/25 11:17 Wound Care Center Nurse 3 #4 L POSTERIOR FOOT -Foul Odor after Cleansing No -Negative Pressure Wound Therapy N/A -Primary Dressing Applied Promogran, Silicone Border Foam 4x4 -Other Dressing ADAPTIC -Promogran 1 -Silicone Border Foam 4x4 1 #3 LT HEEL -Foul Odor after Cleansing No -Negative Pressure Wound Therapy N/A -Primary Dressing Applied Silicone Border Foam 4x4 -Silicone Border Foam 4x4 1 #2 RT HEEL -Primary Dressing Applied Silicone Border Foam 4x4 -Silicone Border Foam 4x4 1 Pain Scale: 0-10 Numeric Is Patient Pain Free? Yes Additional Wound Wound debrided: Right foot Type of Debridement: Excisional debridement Anesthesia Used: 5% Lidocaine Gel Depth: Down to and including healthy tissue and in the subcutaneous layer Percentage of wound debrided: 100 Instrument Used: 3mm curette Tissue Removed: Slough and devitalized tissue Severity: Fat Layer Exposed Amount of bleeding with debridement: Mild Bleeding Controlled with: Pressure Patient tolerated procedure: Patient tolerated procedure well Additional Wound Wound debrided: Left heel Type of Debridement: Excisional debridement Anesthesia Used: 4% Lidocaine Solution Depth: Down to and including healthy tissue Percentage of wound debrided: 100 Instrument Used: 3mm curette Tissue Removed: Devitalized tissue Severity: Limited To Skin Breakdown Amount of bleeding with debridement: None Patient tolerated procedure: Patient tolerated procedure well Additional Wound Wound debrided: Left posterior foot Type of Debridement: Excisional debridement Anesthesia Used: 5% Lidocaine Gel Depth: Down to and including healthy tissue Percentage of wound debrided: 100 Instrument Used: 3mm curette Tissue Removed: Devitalized tissue Amount of bleeding with debridement: Mild Bleeding Controlled with: Pressure Patient tolerated procedure: Patient tolerated procedure well Assessment/Plan Assessment/Plan (1) Ulcer of right lower extremity with fat layer exposed: CODE(S): L97.912 - Non-pressure chronic ulcer of unspecified part of right lower leg with fat layer exposed (2) Ulcer of right foot with fat layer exposed: CODE(S): L97.512 - Non-pressure chronic ulcer of other part of right foot with fat layer exposed (3) Ulcer of left foot with fat layer exposed: CODE(S): L97.522 - Non-pressure chronic ulcer of other part of left foot with fat layer exposed (4) PAD (peripheral artery disease): CODE(S): I73.9 - Peripheral vascular disease, unspecified (5) PAF (paroxysmal atrial fibrillation): CODE(S): I48.0 - Paroxysmal atrial fibrillation (6) Type 2 diabetes mellitus: CODE(S): E11.9 - Type 2 diabetes mellitus without complications (7) Chronic kidney disease, stage 3b: CODE(S): N18.32 - Chronic kidney disease, stage 3b PLAN: Plan Debridement done as documented above, procedure was well-tolerated. Some improvement noted. No acute concerns reported otherwise. Continue moistened Promogran to all areas of ulceration, cover bilateral foot with Adaptic and then foam dressing. Cover kaur with foam dressing. Again, strongly advised that they moisturize both feet adequately prior to dressing application, patient and voiced understanding. Single-layer Tubigrip for edema management. Continue diuretic management per PCP. Leg elevation discussed and exercise as tolerated. Optimal diabetes control recommended. Optimal dietary intake also discussed, states that she takes boost to help supplement her diet which has reduced somewhat. Recommend increase protein intake, vitamin C, D and zinc. Their questions were answered, they were advised to let us know if he had any further questions or concerns. Follow-up in a week or sooner if needed. This note was generated with [employer] dictation software. It may contain incorrect words, spelling, and punctuation that were not noted in checking the note before signing.
[2025-03-15 11:36] VITALS: BP 133/57; PULSE 87; RESP 14; TEMP 35.8
--- NOTE | 2025-03-15 13:09 | PN.PCM_ITS ---
History of Present Illness Date of Service: 03/15/25 Chief Complaint: Bilateral lower extremity ulcers History of Wound: Ms. Yates is a 70-year-old who was referred to the wound center by her PCP due to nonhealing bilateral lower extremity ulceration. Said to have started months ago during a prolonged hospitalization in [place]. Bilateral foot/heel and right kaur. She has been applying Neosporin without any significant improvement. She reports a history of vascular surgery in [place]. 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 No significant tobacco use, smoked for about 6 months quit over 50 years ago. She reports a history of "borderline diabetes". Currently not on medication. Appetite is fair, concern for recent significant weight loss.. Otherwise, she states that she feels well. Progress of Wound: Difficulty with dressing staying in place especially to the right lower extremity. Some worsening noted to this. Otherwise, grossly stable. Still has significant bilateral lower extremity edema. She states that bumetanide has been restarted. Objective Data Objective Data Vital Signs: Vital Signs Temp Pulse Resp BP O2 Del Method 96.4 F L 87 14 133/57 H Room Air 03/15/25 11:36 03/15/25 11:36 03/15/25 11:36 03/15/25 11:36 03/08/25 09:53 Oxygen Delivery Method Room Air Charges/Coding Procedures Integumentary 111xxx-113xx: [id number] Etelvina subq tissue 20 sq cm/< Physical Exam Const alert, oriented x3 and no apparent distress General Appearance: cooperative, well kempt and well developed HEENT normocephalic and head/scalp atraumatic Eyes EOMs intact bilaterally Neck full ROM General: normal visual inspection Resp normal respiratory effort Effort and Inspection: able to speak in complete sentences Skin Wounds: wounds noted size Size: See clinical note, bed with slough, margins well approximated, no odor, open and surrounding erythema Neuro oriented x3, CN's II-XII intact bilaterally, moves all extremities and no focal motor deficits Psych mental status grossly normal, thought process normal, cooperative and affect normal Debridement Note Debridement Note Wound debrided: Right kaur Type of Debridement: Excisional debridement Anesthesia Used: 5% Lidocaine Gel Depth: Down to and including healthy tissue and in the subcutaneous layer Percentage of wound debrided: 100 Instrument Used: 3mm curette Tissue Removed: Slough and devitalized tissue Severity: Fat Layer Exposed Amount of bleeding with debridement: Mild Bleeding Controlled with: Pressure Patient tolerated procedure: Patient tolerated procedure well Post-Debridement Measurements and Additional Note: Post-Debridement Measurements/Treatment WC - Nurse 1 - General Ulcer Assessment Start: 03/08/25 09:42 Freq: Status: Active Protocol: TOMASZ Activity Type Activity Date Activity User E-sign Co-sign Detail Recorded Client Recorded Date Recorded By Document 03/08/25 09:53 KW [id number] 03/08/25 10:07 KW Document 03/15/25 11:36 ML [id number] 03/15/25 11:44 ML 03/08/25 03/15/25 09:53 11:36 WC - Today's Visit Information Type of service Follow-up Visit Follow-up Visit (Physician/ELECTRIC METER INSTALLER HELPER (Physician/ELECTRIC METER INSTALLER HELPER ) ) Arrival Mode Ambulatory Ambulatory Transfer Assistance None Accompanied by Patient Identification Verified (Name & Yes Yes ) Patient Requires Transmission-Based No Precautions Vital Signs Temperature (97.8 F-99.1 F) 96.8 F L 96.4 F L Temperature Source Temporal Temporal Pulse Rate (60-100) 75 87 Pulse Location Monitor Monitor Respiratory Rate (12-18) 18 14 Respiratory rate source Observation Observation Oxygen Delivery Method Room Air Blood Pressure (90/60-120/80) 145/40 H 133/57 H Blood Pressure Mean (mm Hg) 75 82 Source Monitor Monitor Position Sitting Sitting Blood Pressure Location Right Arm Right Arm History Since Last Visit- (Skip if this is Patient's initial visit) Have you changed medications since your No No last visit? Any new allergies or adverse reactions No No Had a fall/change in ADL's that may No No increase risk of falls Signs or symptoms of abuse and/or No neglect since last visit Have you been in the hospital since your No last visit? Has dressing in place as prescribed Yes Yes Has compression in place as prescribed Yes N/A Has offloadiing in place as prescribed N/A N/A Experienced any changes in pain level or No No management Left Footwear Regular Shoe Right Footwear Regular Shoe Pain Scale: 0-10 Numeric Is Patient Pain Free? Yes Yes YANY Velazquez Nurse 1 - General Ulcer Measurement Start: 03/08/25 09:42 Freq: Status: Active Protocol: Activity Type Activity Date Activity User E-sign Co-sign Detail Recorded Client Recorded Date Recorded By Document 03/08/25 09:53 KW [id number] 03/08/25 10:07 KW Document 03/15/25 11:36 ML [id number] 03/15/25 11:44 ML 03/08/25 03/15/25 09:53 11:36 Wound Center Nurse 1 #4 L POSTERIOR FOOT -Current Size (cm) - Length 0.1 0.1 -Current Size (cm) - Width 0.1 0.1 -Current Size (cm) - Depth 0 0.1 -Total Square Cm 0.01 0.01 -Date of Last Picture (Recall this 03/08/25 field) -Exudate Amt Small -Exudate Type Yellow/Green -Granulation Amt Small (1-33%) -Slough/Fibrin Yes -Necrosis Amt Small (1-33%) -Necrotic Tissue Type Adherent Slough -Texture (Violet-wound Skin Appearance) Assessed,Callus Assessed -Moisture (Violet-wound Skin Appearance) Assessed,Dry/ Assessed Scaly -Color (Violet-wound Skin Appearance) Assessed Assessed -Temperature (Violet-wound Skin No Abnormality No Abnormality Appearance) (Pt Warm) (Pt Warm) -Tenderness on Palpation (Violet-wound No Yes Skin Appearance) -Ulcer Cleansing Soap and Water Soap and Water -Foul Odor after Cleansing No No -Anesthetic Used 5% Lidocaine Gel #3 LT HEEL -Current Size (cm) - Length 0.1 0.1 -Current Size (cm) - Width 0.1 0.1 -Current Size (cm) - Depth 0 0.1 -Total Square Cm 0.01 0.01 -Exudate Amt None Present None Present -Granulation Amt None Present (0 %) -Slough/Fibrin No -Necrosis Amt None Present (0 %) -Texture (Violet-wound Skin Appearance) Assessed,Callus Assessed -Moisture (Violet-wound Skin Appearance) Assessed,Dry/ Assessed Scaly -Color (Violet-wound Skin Appearance) Assessed Assessed -Temperature (Violet-wound Skin No Abnormality No Abnormality Appearance) (Pt Warm) (Pt Warm) -Tenderness on Palpation (Violet-wound No Yes Skin Appearance) -Ulcer Cleansing Soap and Water Soap and Water -Foul Odor after Cleansing No No -Anesthetic Used 5% Lidocaine Gel #2 RT HEEL -Current Size (cm) - Length 0.2 0.1 -Current Size (cm) - Width 1.5 0.1 -Current Size (cm) - Depth 0.1 0.1 -Total Square Cm 0.30 0.01 -Date of Last Picture (Recall this 03/08/25 field) -Exudate Amt Small None Present -Exudate Type Serosanguineous -Wound Margin Distinct, Outline Attached -Granulation Amt Large (67-100%) None Present (0 %) -Granulation Quality [place] -Necrosis Amt None Present (0 %) -Texture (Violet-wound Skin Appearance) Assessed,Callus Assessed -Moisture (Violet-wound Skin Appearance) Assessed,Dry/ Assessed Scaly -Color (Violet-wound Skin Appearance) Assessed Assessed -Temperature (Violet-wound Skin No Abnormality No Abnormality Appearance) (Pt Warm) (Pt Warm) -Tenderness on Palpation (Violet-wound No Yes Skin Appearance) -Ulcer Cleansing Soap and Water Soap and Water -Foul Odor after Cleansing No No -Anesthetic Used 5% Lidocaine 5% Lidocaine Gel Gel #1 RT KAUR CLUSTER -Current Size (cm) - Length 0.5 0.3 -Current Size (cm) - Width 9 0.1 -Current Size (cm) - Depth 0.1 0.1 -Total Square Cm 4.5 0.03 -Date of Last Picture (Recall this 03/08/25 field) -Exudate Amt Medium Small -Exudate Type Serosanguineous Yellow/Green -Wound Margin Distinct, Distinct, Outline Outline Attached Attached -Granulation Amt Medium (34-66%) Small (1-33%) -Granulation Quality Red -Slough/Fibrin Yes -Necrosis Amt Medium (34-66%) Small (1-33%) -Necrotic Tissue Type Adherent Slough Adherent Slough -Texture (Violet-wound Skin Appearance) Assessed Assessed -Moisture (Violet-wound Skin Appearance) Assessed Assessed -Color (Violet-wound Skin Appearance) Assessed, Assessed Hemosiderin Staining -Temperature (Violet-wound Skin No Abnormality No Abnormality Appearance) (Pt Warm) (Pt Warm) -Tenderness on Palpation (Violet-wound No Yes Skin Appearance) -Ulcer Cleansing Soap and Water Soap and Water -Foul Odor after Cleansing No No -Anesthetic Used 5% Lidocaine 5% Lidocaine Gel Gel Right Calf (cm) 28.5 21 Right Ankle (cm) 19.5 19 Left Calf (cm) 28.5 25 Left Ankle (cm) 18.5 20 - Nurse 2 - General Ulcer CM Notes Start: 03/08/25 09:42 Freq: Status: Active Protocol: Activity Type Activity Date Activity User E-sign Co-sign Detail Recorded Client Recorded Date Recorded By Document 03/08/25 10:43 [id number] 03/08/25 10:54 Document 03/15/25 12:00 [id number] 03/15/25 12:09 03/08/25 03/15/25 10:43 12:00 Wound Center Nurse 2 #4 L POSTERIOR FOOT -Time 10:53 12:01 -Correct Patient Yes Yes -Correct Side, Site, Position Yes Yes -Correct Procedure Yes Yes -Procedure Performed Yes Yes -Type of Procedure Debridement Debridement -Clinical Debridement Subcutaneous Epidermis / Dermis -Tissue Removed Subcutaneous Epidermis -Post Debridement (cm) - Length 0.2 0.5 -Post Debridement (cm) - Width 1.2 0.1 -Post Debridement (cm) - Depth 0.1 0.1 -Total Square (Post) (cm) 0.24 0.05 -Area of Debridement (cm) - Length 0.2 0.5 -Area of Debridement (cm) - Width 1.2 0.1 -Total Square (Area) (cm) 0.24 0.05 -Tunneling No No -Undermining/Tunneling No No -Circular Undermining No No -Wound/Ulcer Outcome Not Healed Not Healed -Ulcer Cleansing Rinsed/ Rinsed/ Irrigated with Irrigated with Saline Saline -Foul Odor after Cleansing No No -Bioengineered Tissue No No -Bleeding Controlled with Pressure Pressure -Treatment Response Procedure Procedure Tolerated Well Tolerated Well -Offloading No No -Debridement - Open, 1st 20sq cm Yes -Debridement - Subq, 1st 20sq cm Yes #3 LT HEEL -Time 10:53 12:02 -Correct Patient Yes Yes -Correct Side, Site, Position Yes Yes -Correct Procedure Yes Yes -Procedure Performed Yes Yes -Type of Procedure Debridement Debridement -Clinical Debridement Subcutaneous Epidermis / Dermis -Tissue Removed Subcutaneous Epidermis, Dermis -Post Debridement (cm) - Length 0.4 0.1 -Post Debridement (cm) - Width 0.2 0.3 -Post Debridement (cm) - Depth 0.1 0.1 -Total Square (Post) (cm) 0.08 0.03 -Area of Debridement (cm) - Length 0.4 0.1 -Area of Debridement (cm) - Width 0.2 0.3 -Total Square (Area) (cm) 0.08 0.03 -Tunneling No No -Undermining/Tunneling No No -Circular Undermining No No -Wound/Ulcer Outcome Not Healed Not Healed -Ulcer Cleansing Rinsed/ Rinsed/ Irrigated with Irrigated with Saline Saline -Foul Odor after Cleansing No No -Bioengineered Tissue No No -Bleeding Controlled with Pressure Pressure -Treatment Response Procedure Procedure Tolerated Well Tolerated Well -Offloading No -Debridement - Open, 1st 20sq cm No -Debridement - Subq, 1st 20sq cm No #2 RT HEEL -Time 10:47 12:02 -Correct Patient Yes Yes -Correct Side, Site, Position Yes Yes -Correct Procedure Yes Yes -Procedure Performed Yes Yes -Type of Procedure Debridement Debridement -Clinical Debridement Subcutaneous Subcutaneous -Tissue Removed Subcutaneous Subcutaneous -Post Debridement (cm) - Length 1.5 1.8 -Post Debridement (cm) - Width 0.3 0.3 -Post Debridement (cm) - Depth 0.1 0.1 -Total Square (Post) (cm) 0.45 0.54 -Area of Debridement (cm) - Length 1.5 1.8 -Area of Debridement (cm) - Width 0.3 0.3 -Total Square (Area) (cm) 0.45 0.54 -Tunneling No No -Undermining/Tunneling No No -Circular Undermining No No -Wound/Ulcer Outcome Not Healed Not Healed -Ulcer Cleansing Rinsed/ Rinsed/ Irrigated with Irrigated with Saline Saline -Foul Odor after Cleansing No No -Bioengineered Tissue No No -Bleeding Controlled with Pressure Pressure -Treatment Response Procedure Procedure Tolerated Well Tolerated Well -Offloading No No -Debridement - Subq, 1st 20sq cm No No #1 RT KAUR CLUSTER -Time 10:45 12:03 -Correct Patient Yes Yes -Correct Side, Site, Position Yes Yes -Correct Procedure Yes Yes -Procedure Performed Yes Yes -Type of Procedure Debridement Debridement -Clinical Debridement Subcutaneous Subcutaneous -Tissue Removed Subcutaneous Subcutaneous -Post Debridement (cm) - Length 0.4 0.3 -Post Debridement (cm) - Width 0.5 0.4 -Post Debridement (cm) - Depth 0.1 0.1 -Total Square (Post) (cm) 0.20 0.12 -Area of Debridement (cm) - Length 0.4 0.3 -Area of Debridement (cm) - Width 0.5 0.4 -Total Square (Area) (cm) 0.20 0.12 -Tunneling No No -Undermining/Tunneling No No -Circular Undermining No No -Wound/Ulcer Outcome Not Healed Not Healed -Ulcer Cleansing Rinsed/ Rinsed/ Irrigated with Irrigated with Saline Saline -Foul Odor after Cleansing No No -Bioengineered Tissue No No -Bleeding Controlled with Pressure Pressure -Treatment Response Procedure Procedure Tolerated Well Tolerated Well -Offloading No No -Debridement - Subq, 1st 20sq cm No No Pain Scale: 0-10 Numeric Is Patient Pain Free? Yes Yes WC - Nurse 3 - General Ulcer D/C NN Start: 03/08/25 09:42 Freq: Status: Active Protocol: Activity Type Activity Date Activity User E-sign Co-sign Detail Recorded Client Recorded Date Recorded By Document 03/08/25 11:17 [place] [id number] 03/08/25 11:20 MT Document 03/15/25 12:32 RB [id number] 03/15/25 12:34 RB 03/08/25 03/15/25 11:17 12:32 Wound Care Center Nurse 3 #4 L POSTERIOR FOOT -Foul Odor after Cleansing No -Negative Pressure Wound Therapy N/A -Primary Dressing Applied Promogran, Silicone Border Foam 4x4 -Other Dressing ADAPTIC -Primary Dressing Covered/Secured with Dry Gauze -Promogran 1 -Silicone Border Foam 4x4 1 #3 LT HEEL -Foul Odor after Cleansing No -Negative Pressure Wound Therapy N/A -Primary Dressing Applied Silicone Border Promogran Foam 4x4 -Primary Dressing Covered/Secured with Dry Gauze,Dry Gauze & Roll Gauze,Secured with Tape -Promogran 1 -Silicone Border Foam 4x4 1 #2 RT HEEL -Primary Dressing Applied Silicone Border Foam 4x4 -Other Dressing PROMOGRAN -Primary Dressing Covered/Secured with Dry Gauze,Dry Gauze & Roll Gauze,Secured with Tape -Silicone Border Foam 4x4 1 #1 RT KAUR CLUSTER -Primary Dressing Applied Silicone Border Foam 4x4 -Other Dressing PROMOGRAN -Silicone Border Foam 4x4 1 -Wound Comment(s) PT REFUSED TUBIGRIP BILAT Treatment Response Procedure Tolerated Well Pain Scale: 0-10 Numeric Is Patient Pain Free? Yes Yes WC - Visit Discharge Discharge Condition Stable Ambulatory Status Ambulatory Transportation Private Auto Medication Reconcilliation completed & No provided to patient/care provider Clinical Summary of Care Provided Yes Additional Wound Wound debrided: Right foot Type of Debridement: Excisional debridement Anesthesia Used: 5% Lidocaine Gel Depth: Down to and including healthy tissue and in the subcutaneous layer Percentage of wound debrided: 100 Instrument Used: 3mm curette Tissue Removed: Slough and devitalized tissue Severity: Fat Layer Exposed Amount of bleeding with debridement: Mild Bleeding Controlled with: Pressure Patient tolerated procedure: Patient tolerated procedure well Additional Wound Wound debrided: Left heel Type of Debridement: Excisional debridement Anesthesia Used: 5% Lidocaine Gel Depth: Down to and including healthy tissue and in the subcutaneous layer Percentage of wound debrided: 100 Instrument Used: 3mm curette Tissue Removed: Devitalized tissue Severity: Limited To Skin Breakdown Amount of bleeding with debridement: Mild Bleeding Controlled with: Pressure Additional Wound Wound debrided: Left posterior foot Type of Debridement: Selective debridement Anesthesia Used: 5% Lidocaine Gel Depth: Down to and including healthy tissue Percentage of wound debrided: 100 Instrument Used: 3mm curette Tissue Removed: Devitalized tissue Severity: Limited To Skin Breakdown Amount of bleeding with debridement: Mild Bleeding Controlled with: Pressure Patient tolerated procedure: Patient tolerated procedure well Assessment/Plan Assessment/Plan (1) Ulcer of right lower extremity with fat layer exposed: CODE(S): L97.912 - Non-pressure chronic ulcer of unspecified part of right lower leg with fat layer exposed (2) Ulcer of right foot with fat layer exposed: CODE(S): L97.512 - Non-pressure chronic ulcer of other part of right foot with fat layer exposed (3) Ulcer of left foot with fat layer exposed: CODE(S): L97.522 - Non-pressure chronic ulcer of other part of left foot with fat layer exposed (4) PAD (peripheral artery disease): CODE(S): I73.9 - Peripheral vascular disease, unspecified (5) PAF (paroxysmal atrial fibrillation): CODE(S): I48.0 - Paroxysmal atrial fibrillation (6) Type 2 diabetes mellitus: CODE(S): E11.9 - Type 2 diabetes mellitus without complications (7) Chronic kidney disease, stage 3b: CODE(S): N18.32 - Chronic kidney disease, stage 3b PLAN: Plan Debridement done as documented above, procedure was well-tolerated. Right kaur and left foot with some improvement however left heel with mild worsening since her last visit. As above, they had difficulty keeping dressing in place to the left heel. Overall, fissuring and dryness has improved to the foot area. Continue moistened Promogran to all areas of ulceration, cover bilateral foot with Adaptic and then foam dressing. May wrap right foot with gauze/Coban wrap to help dressing stay in place. Cover kaur with foam dressing. Continue adequate moisturizing. Patient and voiced understanding. Single-layer Tubigrip for edema management, mild compression due to peripheral arterial disease. Continue diuretic management per PCP. Leg elevation discussed and exercise as tolerated. Optimal diabetes control recommended. Optimal dietary intake also discussed, states that she takes boost to help supplement her diet which has reduced somewhat. Recommend increase protein intake, vitamin C, D and zinc. Their questions were answered, they were advised to let us know if he had any further questions or concerns. Follow-up in a week or sooner if needed. This note was generated with [employer] dictation software. It may contain incorrect words, spelling, and punctuation that were not noted in checking the note before signing.
[2025-03-29 11:05] VITALS: BP 145/67; PULSE 89; RESP 16; TEMP 36.8; O2SAT 100
--- NOTE | 2025-03-29 12:37 | PCM.WC.PN ---
History of Present Illness Date of Service: 03/29/25 Chief Complaint: Bilateral lower extremity ulcers History of Wound: Ms. Yates is a 70-year-old who was referred to the wound center by her PCP due to nonhealing bilateral lower extremity ulceration. Said to have started months ago during a prolonged hospitalization in [place]. Bilateral foot/heel and right kaur. She has been applying Neosporin without any significant improvement. She reports a history of vascular surgery in [place]. 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 No significant tobacco use, smoked for about 6 months quit over 50 years ago. She reports a history of "borderline diabetes". Currently not on medication. Appetite is fair, concern for recent significant weight loss.. Otherwise, she states that she feels well. Progress of Wound: Still difficulty with dressings staying on so has been using Band-Aids to keep dressing in place. Slight maceration noted on the right. Otherwise, no acute concerns reported at this time. Largely, homebound. Objective Data Objective Data Vital Signs: Vital Signs Temp Pulse Resp BP Pulse Ox O2 Del Method 98.2 F 89 16 145/67 H 100 Room Air 03/29/25 11:05 03/29/25 11:05 03/29/25 11:05 03/29/25 11:05 03/29/25 11:05 03/29/25 11:05 Oxygen Delivery Method Room Air Charges/Coding Procedures Integumentary [id number]: [id number] Etelvina subq tissue 20 sq cm/< Physical Exam Const alert, oriented x3 and no apparent distress General Appearance: cooperative, well kempt and well developed HEENT normocephalic and head/scalp atraumatic Eyes EOMs intact bilaterally Neck full ROM General: normal visual inspection Resp normal respiratory effort Effort and Inspection: able to speak in complete sentences Skin Wounds: wounds noted size Size: See clinical note, bed with slough, margins well approximated, no odor, open and surrounding erythema Neuro oriented x3, CN's II-XII intact bilaterally, moves all extremities and no focal motor deficits Psych mental status grossly normal, thought process normal, cooperative and affect normal Debridement Note Debridement Note Wound debrided: Right kaur Type of Debridement: Excisional debridement Anesthesia Used: 5% Lidocaine Gel Depth: Down to and including healthy tissue and in the subcutaneous layer Percentage of wound debrided: 100 Instrument Used: 3mm curette Tissue Removed: Slough and devitalized tissue Severity: Fat Layer Exposed Amount of bleeding with debridement: Mild Bleeding Controlled with: Pressure Patient tolerated procedure: Patient tolerated procedure well Post-Debridement Measurements and Additional Note: Post-Debridement Measurements/Treatment - Nurse 1 - General Ulcer Assessment Start: 03/08/25 09:42 Freq: Status: Active Protocol: [email or web address] Activity Type Activity Date Activity User E-sign Co-sign Detail Recorded Client Recorded Date Recorded By Document 03/08/25 09:53 KW [id number] 03/08/25 10:07 KW Document 03/15/25 11:36 ML [id number] 03/15/25 11:44 ML Document 03/29/25 11:05 LINDSAY [id number] 03/29/25 11:15 JM 03/08/25 03/15/25 03/29/25 09:53 11:36 11:05 - Today's Visit Information Type of service Follow-up Visit Follow-up Visit Follow-up Visit (Physician/PANTOGRAPH MACHINE SET UP OPERATOR (Physician/PANTOGRAPH MACHINE SET UP OPERATOR (Physician/PANTOGRAPH MACHINE SET UP OPERATOR ) ) ) Arrival Mode Ambulatory Ambulatory Ambulatory Transfer Assistance None None Accompanied by Patient Identification Verified (Name & Yes Yes Yes ) Patient Requires Transmission-Based No No Precautions Safety Precautions Fall Prevention Vital Signs Temperature (97.8 F-99.1 F) 96.8 F L 96.4 F L 98.2 F Temperature Source Temporal Temporal Temporal Pulse Rate (60-100) 75 87 89 Pulse Location Monitor Monitor Monitor Respiratory Rate (12-18) 18 14 16 Respiratory rate source Observation Observation Observation Pulse Oximetry 100 Oxygen Delivery Method Room Air Room Air Blood Pressure (90/60-120/80) 145/40 H 133/57 H 145/67 H Blood Pressure Mean (mm Hg) 75 82 93 Source Monitor Monitor Monitor Position Sitting Sitting Semi-Fowlers Blood Pressure Location Right Arm Right Arm Left Arm History Since Last Visit- (Skip if this is Patient's initial visit) Have you changed medications since your No No No last visit? Any new allergies or adverse reactions No No No Had a fall/change in ADL's that may No No No increase risk of falls Signs or symptoms of abuse and/or No No neglect since last visit Have you been in the hospital since your No No last visit? Has dressing in place as prescribed Yes Yes No Has compression in place as prescribed Yes N/A No Has offloadiing in place as prescribed N/A N/A Experienced any changes in pain level or No No No management Left Footwear Regular Shoe Regular Shoe Right Footwear Regular Shoe Regular Shoe Pain Scale: 0-10 Numeric Is Patient Pain Free? Yes Yes No right heel -Description Sharp -Intensity 4 -Alleviating Factors/Interventions Turning/ Repositioning left heel -Description Sharp -Intensity 2 WC - Nurse 1 - General Ulcer Measurement Start: 03/08/25 09:42 Freq: Status: Active Protocol: Activity Type Activity Date Activity User E-sign Co-sign Detail Recorded Client Recorded Date Recorded By Document 03/08/25 09:53 KW [id number] 03/08/25 10:07 KW Document 03/15/25 11:36 ML [id number] 03/15/25 11:44 ML Document 03/29/25 11:15 [id number] 03/29/25 11:38 03/08/25 03/15/25 03/29/25 09:53 11:36 11:15 Wound Center Nurse 1 #4 L POSTERIOR FOOT -Current Size (cm) - Length 0.1 0.1 0.1 -Current Size (cm) - Width 0.1 0.1 0.1 -Current Size (cm) - Depth 0 0.1 0.1 -Total Square Cm 0.01 0.01 0.01 -Date of Last Picture (Recall this 03/08/25 03/29/25 field) -Photo Taken Yes -Tunneling No -Undermining/Tunneling No -Circular Undermining No -Exudate Amt Small None Present -Exudate Type Yellow/Green -Wound Margin Flat & Intact -Granulation Amt Small (1-33%) Large (67-100%) -Granulation Quality [place] -Slough/Fibrin Yes No -Necrosis Amt Small (1-33%) None Present (0 %) -Necrotic Tissue Type Adherent Slough -Structure Exposed N/A -Texture (Violet-wound Skin Appearance) Assessed,Callus Assessed No Abnormality, Assessed -Moisture (Violet-wound Skin Appearance) Assessed,Dry/ Assessed Assessed,Dry/ Scaly Scaly -Color (Violet-wound Skin Appearance) Assessed Assessed Assessed -Temperature (Violet-wound Skin No Abnormality No Abnormality No Abnormality Appearance) (Pt Warm) (Pt Warm) (Pt Warm) -Tenderness on Palpation (Violet-wound No Yes No Skin Appearance) -Ulcer Cleansing Soap and Water Soap and Water Soap and Water -Foul Odor after Cleansing No No -Anesthetic Used 5% Lidocaine 5% Lidocaine Gel Gel #3 LT HEEL -Current Size (cm) - Length 0.1 0.1 0.1 -Current Size (cm) - Width 0.1 0.1 0.1 -Current Size (cm) - Depth 0 0.1 0.1 -Total Square Cm 0.01 0.01 0.01 -Date of Last Picture (Recall this 03/29/25 field) -Photo Taken Yes -Tunneling No -Undermining/Tunneling No -Circular Undermining No -Exudate Amt None Present None Present None Present -Wound Margin Flat & Intact -Granulation Amt None Present (0 %) -Slough/Fibrin No No -Necrosis Amt None Present (0 %) -Texture (Violet-wound Skin Appearance) Assessed,Callus Assessed Assessed -Moisture (Violet-wound Skin Appearance) Assessed,Dry/ Assessed Assessed,Dry/ Scaly Scaly -Color (Violet-wound Skin Appearance) Assessed Assessed Assessed -Temperature (Violet-wound Skin No Abnormality No Abnormality No Abnormality Appearance) (Pt Warm) (Pt Warm) (Pt Warm) -Tenderness on Palpation (Violet-wound No Yes No Skin Appearance) -Ulcer Cleansing Soap and Water Soap and Water Soap and Water -Foul Odor after Cleansing No No No -Anesthetic Used 5% Lidocaine 5% Lidocaine Gel Gel #2 RT HEEL -Current Size (cm) - Length 0.2 0.1 1.5 -Current Size (cm) - Width 1.5 0.1 0.5 -Current Size (cm) - Depth 0.1 0.1 0.1 -Total Square Cm 0.30 0.01 0.75 -Date of Last Picture (Recall this 03/08/25 03/29/25 field) -Photo Taken Yes -Tunneling No -Undermining/Tunneling No -Circular Undermining No -Exudate Amt Small None Present Medium -Exudate Type Serosanguineous Serosanguineous -Wound Margin Distinct, Distinct, Outline Outline Attached Attached -Granulation Amt Large (67-100%) None Present (0 Small (1-33%) %) -Granulation Quality [place] -Slough/Fibrin Yes -Necrosis Amt None Present (0 Large (67-100%) %) -Necrotic Tissue Type Adherent Slough -Structure Exposed N/A -Texture (Violet-wound Skin Appearance) Assessed,Callus Assessed Assessed, Localized Edema -Moisture (Violet-wound Skin Appearance) Assessed,Dry/ Assessed Assessed Scaly -Color (Violet-wound Skin Appearance) Assessed Assessed Assessed -Temperature (Violet-wound Skin No Abnormality No Abnormality No Abnormality Appearance) (Pt Warm) (Pt Warm) (Pt Warm) -Tenderness on Palpation (Violet-wound No Yes No Skin Appearance) -Ulcer Cleansing Soap and Water Soap and Water Soap and Water -Foul Odor after Cleansing No No No -Anesthetic Used 5% Lidocaine 5% Lidocaine 5% Lidocaine Gel Gel Gel #1 RT KAUR CLUSTER -Combined with other wound No -Current Size (cm) - Length 0.5 0.3 0.3 -Current Size (cm) - Width 9 0.1 0.4 -Current Size (cm) - Depth 0.1 0.1 0.1 -Total Square Cm 4.5 0.03 0.12 -Date of Last Picture (Recall this 03/08/25 03/29/25 field) -Photo Taken Yes -Tunneling No -Undermining/Tunneling No -Circular Undermining No -Exudate Amt Medium Small None Present -Exudate Type Serosanguineous Yellow/Green Serosanguineous -Wound Margin Distinct, Distinct, Distinct, Outline Outline Outline Attached Attached Attached -Granulation Amt Medium (34-66%) Small (1-33%) Large (67-100%) -Granulation Quality Red Red -Slough/Fibrin Yes No -Necrosis Amt Medium (34-66%) Small (1-33%) None Present (0 %) -Necrotic Tissue Type Adherent Slough Adherent Slough Adherent Slough -Structure Exposed N/A -Texture (Violet-wound Skin Appearance) Assessed Assessed No Abnormality, Assessed -Moisture (Violet-wound Skin Appearance) Assessed Assessed No Abnormality, Assessed -Color (Violet-wound Skin Appearance) Assessed, Assessed No Abnormality, Hemosiderin Assessed Staining -Temperature (Violet-wound Skin No Abnormality No Abnormality No Abnormality Appearance) (Pt Warm) (Pt Warm) (Pt Warm) -Tenderness on Palpation (Violet-wound No Yes No Skin Appearance) -Ulcer Cleansing Soap and Water Soap and Water Soap and Water -Foul Odor after Cleansing No No No -Anesthetic Used 5% Lidocaine 5% Lidocaine 5% Lidocaine Gel Gel Gel Lower Limb Edema Present NA Right Calf (cm) 28.5 21 Right Ankle (cm) 19.5 19 Left Calf (cm) 28.5 25 Left Ankle (cm) 18.5 20 WC - Nurse 2 - General Ulcer CM Notes Start: 03/08/25 09:42 Freq: Status: Active Protocol: Activity Type Activity Date Activity User E-sign Co-sign Detail Recorded Client Recorded Date Recorded By Document 03/08/25 10:43 GM [id number] 03/08/25 10:54 GM Document 03/15/25 12:00 GM [id number] 03/15/25 12:09 GM Edit Result 03/15/25 12:00 GM (1) [id number] 03/21/25 12:09 GM Document 03/29/25 11:41 JF [id number] 03/29/25 11:46 JF (1) #2 RT HEEL - Debridement - Subq, 1st 20sq cm No => Yes 03/08/25 03/15/25 03/29/25 10:43 12:00 11:41 Wound Center Nurse 2 #4 L POSTERIOR FOOT -Time 10:53 12:01 -Correct Patient Yes Yes Yes -Correct Side, Site, Position Yes Yes No -Correct Procedure Yes Yes No -Procedure Performed Yes Yes No -Type of Procedure Debridement Debridement -Clinical Debridement Subcutaneous Epidermis / Dermis -Tissue Removed Subcutaneous Epidermis -Post Debridement (cm) - Length 0.2 0.5 0 -Post Debridement (cm) - Width 1.2 0.1 0 -Post Debridement (cm) - Depth 0.1 0.1 0 -Total Square (Post) (cm) 0.24 0.05 0 -Area of Debridement (cm) - Length 0.2 0.5 0 -Area of Debridement (cm) - Width 1.2 0.1 0 -Total Square (Area) (cm) 0.24 0.05 0 -Tunneling No No -Undermining/Tunneling No No -Circular Undermining No No -Wound/Ulcer Outcome Not Healed Not Healed Healed- Epithelialized -Ulcer Cleansing Rinsed/ Rinsed/ Irrigated with Irrigated with Saline Saline -Foul Odor after Cleansing No No -Bioengineered Tissue No No -Bleeding Controlled with Pressure Pressure -Treatment Response Procedure Procedure Tolerated Well Tolerated Well -Offloading No No -Debridement - Open, 1st 20sq cm Yes -Debridement - Subq, 1st 20sq cm Yes #3 LT HEEL -Time 10:53 12:02 11:42 -Correct Patient Yes Yes Yes -Correct Side, Site, Position Yes Yes Yes -Correct Procedure Yes Yes Yes -Procedure Performed Yes Yes Yes -Type of Procedure Debridement Debridement Debridement -Clinical Debridement Subcutaneous Epidermis / Subcutaneous Dermis -Tissue Removed Subcutaneous Epidermis, Subcutaneous Dermis -Post Debridement (cm) - Length 0.4 0.1 0.1 -Post Debridement (cm) - Width 0.2 0.3 0.7 -Post Debridement (cm) - Depth 0.1 0.1 0.1 -Total Square (Post) (cm) 0.08 0.03 0.07 -Area of Debridement (cm) - Length 0.4 0.1 0.1 -Area of Debridement (cm) - Width 0.2 0.3 0.7 -Total Square (Area) (cm) 0.08 0.03 0.07 -Tunneling No No No -Undermining/Tunneling No No No -Circular Undermining No No No -Wound/Ulcer Outcome Not Healed Not Healed Not Healed -Ulcer Cleansing Rinsed/ Rinsed/ Rinsed/ Irrigated with Irrigated with Irrigated with Saline Saline Saline -Foul Odor after Cleansing No No No -Bioengineered Tissue No No No -Bleeding Controlled with Pressure Pressure Pressure -Treatment Response Procedure Procedure Procedure Tolerated Well Tolerated Well Tolerated Well -Offloading No No -Debridement - Open, 1st 20sq cm No -Debridement - Subq, 1st 20sq cm No No #2 RT HEEL -Time 10:47 12:02 11:43 -Correct Patient Yes Yes Yes -Correct Side, Site, Position Yes Yes Yes -Correct Procedure Yes Yes Yes -Procedure Performed Yes Yes Yes -Type of Procedure Debridement Debridement Debridement -Clinical Debridement Subcutaneous Subcutaneous Subcutaneous -Tissue Removed Subcutaneous Subcutaneous Subcutaneous -Post Debridement (cm) - Length 1.5 1.8 1.7 -Post Debridement (cm) - Width 0.3 0.3 0.1 -Post Debridement (cm) - Depth 0.1 0.1 0.1 -Total Square (Post) (cm) 0.45 0.54 0.17 -Area of Debridement (cm) - Length 1.5 1.8 1.7 -Area of Debridement (cm) - Width 0.3 0.3 0.1 -Total Square (Area) (cm) 0.45 0.54 0.17 -Tunneling No No No -Undermining/Tunneling No No No -Circular Undermining No No No -Wound/Ulcer Outcome Not Healed Not Healed Not Healed -Ulcer Cleansing Rinsed/ Rinsed/ Rinsed/ Irrigated with Irrigated with Irrigated with Saline Saline Saline -Foul Odor after Cleansing No No No -Bioengineered Tissue No No No -Bleeding Controlled with Pressure Pressure Pressure -Treatment Response Procedure Procedure Procedure Tolerated Well Tolerated Well Tolerated Well -Offloading No No No -Debridement - Subq, 1st 20sq cm No Yes Yes #1 RT KAUR CLUSTER -Time 10:45 12:03 11:44 -Correct Patient Yes Yes Yes -Correct Side, Site, Position Yes Yes Yes -Correct Procedure Yes Yes Yes -Procedure Performed Yes Yes Yes -Type of Procedure Debridement Debridement Debridement -Clinical Debridement Subcutaneous Subcutaneous Subcutaneous -Tissue Removed Subcutaneous Subcutaneous Subcutaneous -Post Debridement (cm) - Length 0.4 0.3 0.5 -Post Debridement (cm) - Width 0.5 0.4 0.4 -Post Debridement (cm) - Depth 0.1 0.1 0.1 -Total Square (Post) (cm) 0.20 0.12 0.20 -Area of Debridement (cm) - Length 0.4 0.3 0.5 -Area of Debridement (cm) - Width 0.5 0.4 0.4 -Total Square (Area) (cm) 0.20 0.12 0.20 -Tunneling No No No -Undermining/Tunneling No No No -Circular Undermining No No No -Wound/Ulcer Outcome Not Healed Not Healed Not Healed -Ulcer Cleansing Rinsed/ Rinsed/ Rinsed/ Irrigated with Irrigated with Irrigated with Saline Saline Saline -Foul Odor after Cleansing No No No -Bioengineered Tissue No No No -Bleeding Controlled with Pressure Pressure Pressure -Treatment Response Procedure Procedure Procedure Tolerated Well Tolerated Well Tolerated Well -Offloading No No No -Debridement - Subq, 1st 20sq cm No No No Pain Scale: 0-10 Numeric Is Patient Pain Free? Yes Yes Yes WC - Nurse 3 - General Ulcer D/C NN Start: 03/08/25 09:42 Freq: Status: Active Protocol: Activity Type Activity Date Activity User E-sign Co-sign Detail Recorded Client Recorded Date Recorded By Document 03/08/25 11:17 MT [id number] 03/08/25 11:20 MT Document 03/15/25 12:32 RB [id number] 03/15/25 12:34 RB Document 03/29/25 11:58 JF [id number] 03/29/25 12:01 JF 03/08/25 03/15/25 03/29/25 11:17 12:32 11:58 Wound Care Center Nurse 3 #4 L POSTERIOR FOOT -Foul Odor after Cleansing No -Negative Pressure Wound Therapy N/A -Primary Dressing Applied Promogran, Silicone Border Foam 4x4 -Other Dressing ADAPTIC -Primary Dressing Covered/Secured with Dry Gauze -Promogran 1 -Silicone Border Foam 4x4 1 #3 LT HEEL -Ulcer Cleansing Rinsed/ Irrigated with Saline -Foul Odor after Cleansing No No -Negative Pressure Wound Therapy N/A -Primary Dressing Applied Silicone Border Promogran C Hydrogel, Foam 4x4 NonAdherent Contact Layer -Primary Dressing Covered/Secured with Dry Gauze,Dry Dry Gauze & Gauze & Roll Roll Gauze, Gauze,Secured Secured with with Tape Tape -Hydrogel 0 -Promogran 1 -Silicone Border Foam 4x4 1 #2 RT HEEL -Ulcer Cleansing Rinsed/ Irrigated with Saline -Foul Odor after Cleansing No -Primary Dressing Applied Silicone Border C Hydrogel, Foam 4x4 NonAdherent Contact Layer -Other Dressing PROMOGRAN -Primary Dressing Covered/Secured with Dry Gauze,Dry Dry Gauze & Gauze & Roll Roll Gauze, Gauze,Secured Secured with with Tape Tape -Hydrogel 0 -Silicone Border Foam 4x4 1 #1 RT KAUR CLUSTER -Ulcer Cleansing Rinsed/ Irrigated with Saline -Foul Odor after Cleansing No -Primary Dressing Applied Silicone Border C Hydrogel, Foam 4x4 NonAdherent Contact Layer -Other Dressing PROMOGRAN -Primary Dressing Covered/Secured with Dry Gauze & Roll Gauze, Secured with Tape -Hydrogel 0 -Silicone Border Foam 4x4 1 -Wound Comment(s) PT REFUSED TUBIGRIP BILAT Treatment Response Procedure Tolerated Well Pain Scale: 0-10 Numeric Is Patient Pain Free? Yes Yes Yes WC - Visit Discharge Discharge Condition Stable Stable Ambulatory Status Ambulatory Ambulatory Transportation Private Auto Private Auto Accompanied by Medication Reconcilliation completed & No Yes provided to patient/care provider Clinical Summary of Care Provided Yes Yes Additional Wound Wound debrided: Right foot Type of Debridement: Excisional debridement Anesthesia Used: 5% Lidocaine Gel Depth: Down to and including healthy tissue and in the subcutaneous layer Percentage of wound debrided: 100 Instrument Used: 3mm curette Tissue Removed: Devitalized tissue Severity: Limited To Skin Breakdown Amount of bleeding with debridement: Mild Bleeding Controlled with: Pressure Patient tolerated procedure: Patient tolerated procedure well Additional Wound Wound debrided: Left heel Type of Debridement: Excisional debridement Anesthesia Used: 5% Lidocaine Gel Depth: Down to and including healthy tissue Percentage of wound debrided: 100 Instrument Used: 3mm curette Tissue Removed: Devitalized tissue Severity: Limited To Skin Breakdown Amount of bleeding with debridement: None Assessment/Plan Assessment/Plan (1) Ulcer of right lower extremity with fat layer exposed: CODE(S): L97.912 - Non-pressure chronic ulcer of unspecified part of right lower leg with fat layer exposed (2) Ulcer of right foot with fat layer exposed: CODE(S): L97.512 - Non-pressure chronic ulcer of other part of right foot with fat layer exposed (3) Ulcer of left foot with fat layer exposed: CODE(S): L97.522 - Non-pressure chronic ulcer of other part of left foot with fat layer exposed (4) PAD (peripheral artery disease): CODE(S): I73.9 - Peripheral vascular disease, unspecified (5) PAF (paroxysmal atrial fibrillation): CODE(S): I48.0 - Paroxysmal atrial fibrillation (6) Type 2 diabetes mellitus: CODE(S): E11.9 - Type 2 diabetes mellitus without complications (7) Chronic kidney disease, stage 3b: CODE(S): N18.32 - Chronic kidney disease, stage 3b PLAN: Plan Debridement done as documented above, procedure was well-tolerated. As above, her is still having difficulty with keeping dressing in place and Band-Aids to help keep in place. Some maceration noted to the right foot. Otherwise, no acute concerns. So I believe she would benefit from home health coming in a couple days weekly to help with dressing changes. Left foot is healed. For now continue moistened Promogran to all areas of ulceration, cover bilateral foot with Adaptic and then foam dressing. May wrap right foot with gauze/Coban wrap to help dressing stay in place. Cover kaur with foam dressing. Continue adequate moisturizing. Patient and voiced understanding. Single-layer Tubigrip for edema management, mild compression due to peripheral arterial disease. Continue diuretic management per PCP. Leg elevation discussed and exercise as tolerated. Optimal diabetes control recommended. Optimal dietary intake. Their questions were answered, they were advised to let us know if he had any further questions or concerns. Follow-up in a week or sooner if needed. This note was generated with [employer] dictation software. It may contain incorrect words, spelling, and punctuation that were not noted in checking the note before signing.
== END 2025-04-03 23:59 | disposition home or self-care (01) ==
LOC: WC 11:00
PROVIDERS: PCP Family Medicine Geriatric Medicine; Referring Provider Family Medicine Geriatric Medicine; Visit Provider Internal Medicine
DX: E11.621 Type 2 diabetes mellitus with foot ulcer (principal); L97.512 Non-pressure chronic ulcer of other part of right foot with fat layer exposed; L97.522 Non-pressure chronic ulcer of other part of left foot with fat layer exposed; I48.0 Paroxysmal atrial fibrillation; E11.51 Type 2 diabetes mellitus with diabetic peripheral angiopathy without gangrene; E11.22 Type 2 diabetes mellitus with diabetic chronic kidney disease; N18.32 Chronic kidney disease, stage 3b; R60.0 Localized edema; Z87.891 Personal history of nicotine dependence
CPT/HCPCS: 11042; 97597

== ENCOUNTER → 2025-04-02 | Outpatient (CLI) | payer MEDICARE, SELFPAY ==
--- OUTSIDE RECORDS SUMMARY | 2025-01-01 10:23 | XMS RPT_ITS ---
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 Name Role Phone ALBIN GU Referring Unavailable HAAGEN, DEYSI Primary Care Unavailable ALBIN GU Attending Unavailable JUAN DIEGO BYRD Referring Unavailable HAAGEN, DEYSI Primary Care Unavailable ALBIN GU Attending Unavailable YOON, DIANNE TAYLOR Primary Care Unavailable ALEXANDRAINALBIN Attending Unavailable HAAGEN, DEYSI Primary Care Unavailable HAAGEN, DEYSI Primary Care Unavailable JUAN DIEGO BYRD Admitting Unavailable JUAN DIEGO BYRD Attending Unavailable SONAL SILVA Consulting Unavailable SHAYE DOMINGO Referring Unavailable HAAGEN, DEYSI Primary Care Unavailable HAAGEN, DEYSI Primary Care Unavailable SHAYE DOMINGO Attending Unavailable HAAGEN, DEYSI Referring Unavailable LE, DIANNE HAASORY Primary Care Unavailable HAAGEN, DEYSI Attending Unavailable LE, DIANNE CLAUDIA Primary Care Unavailable HAAGEN, DEYSI Primary Care Unavailable CARLA ARRIAGA Attending Unavailable HAAGEN, DEYSI Primary Care Unavailable SONAL SILVA Attending Unavailable SONAL SILVA Referring Unavailable HAAGEN, DEYSI Primary Care Unavailable SONAL SILVA Referring Unavailable HAAGEN, DEYSI Primary Care Unavailable CARLA ARRIAGA Referring Unavailable HAAGEN, DEYSI Primary Care Unavailable CARLA ARRIAGA Referring Unavailable CARLA ARRIAGA Attending Unavailable HAAGEN, DEYSI Primary Care Unavailable ALEXANDRAINALBIN Referring Unavailable HAAGEN, DEYSI Primary Care Unavailable CARLA ARRIAGA Attending Unavailable HAAGEN, DEYSI Primary Care Unavailable PROBLEMS DATE TYPE CONDITION / CODE ATTENDING STATUS [facility] 01/01/2025 Active Paroxysmal atria l fibrillation (HCC) / I48.0(ICD-10) CARLA ARRIAGA Active [facility] 12/10/2024 Active Acute on chronic diastolic congestive heart failure (HCC) / I50.33(ICD-10) CARLA ARRIAGA Active [facility] 12/20/2024 Active Superior mesente irvin artery stenosis (HCC) / K55.1(ICD-10) RICARDOSONAL Kellen Active [facility] 11/09/2023 Active Longstanding per sistent atrial fibrillation (HCC) / I48.11(ICD-10) BRITTANIE ALBIN Active [facility] 11/09/2023 Active Primary hyperten dipesh / I10(ICD-10) ALEXANDRAGA [facility] 11/09/2023 Active SSS (sick sinus syndrome) (HCC) / I49.5(ICD-10) BRITTANIE [facility] 11/09/2023 Active History of prost hetic aortic valve replacement / Z95.2(ICD-10) JUAN DIEGO BYRD [facility] 11/09/2023 Active PAD (peripheral artery disease) / I73.9(ICD-10) JUAN DIEGO BYRD [facility] 02/24/2022 Active Hyperlipidemia w ith target LDL less than 70 / E78.5(ICD-10) JUAN DIEGO BYRD [facility] 12/10/2024 Active Congestive heart failure, unspecified HF chronicity, unspecified heart failure type (HCC) / I50.9(ICD-10) JUAN DIEGO BYRD [facility] 12/10/2024 Active Shortness of gurwinder ath / R06.02(ICD-10) JUAN DIEGO BYRD [facility] 01/14/2024 Active Chronic diastoli c (congestive) heart failure (HCC) / I50.32(ICD-10) NA Active [facility] 03/21/2022 Active Chronic kidney d isease, unspecified CKD stage / N18.9(ICD-10) NA Active [facility] 12/01/2024 Active Dyspnea on exert ion / R06.09(ICD-10) NA Active [facility] 07/08/2022 Active Ascending aorta dilatation / I77.810(ICD-10) CARLA ARRIAGA Active [facility] 01/07/2023 Active 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) / K55.069(ICD-10) CARLA ARRIAGA Active [facility] 03/20/2022 Active S/P placement of cardiac pacemaker / Z95.0(ICD-10) CARLA ARRIAGA Active [facility] 11/03/2024 Active Chronic diastoli c congestive heart failure (HCC) / I50.32(ICD-10) [facility] 03/21/2022 Active Stage 3b chronic kidney disease (HCC) / N18.32(ICD-10) ALBIN GU Active [facility] 03/21/2022 Active Hypomagnesemia / E83.42(ICD-10) [facility] 10/31/2024 Active Gastrointestinal hemorrhage, unspecified gastrointestinal hemorrhage type / K92.2(ICD-10) [facility] 10/31/2024 Active MONIQUE (acute kidne y injury) / N17.9(ICD-10) [facility] 10/31/2024 Active Acute mesenteric ischemia (HCC) / K55.059(ICD-10) SHAYE DOMINGO Active [facility] 10/31/2024 Active Physical decondi tioning / R53.81(ICD-10) SHAYE DOMINGO [facility] 10/31/2024 Active Hospital dischar ge follow-up / Z09(ICD-10) SHAYE DOMINGO Active [facility] 11/09/2023 Active Type 2 diabetes mellitus with diabetic peripheral angiopathy without gangrene, without long-term current use of insulin (HCC) / E11.51(ICD-10) NA [facility] 07/07/2024 Active Pain in both low er extremities / M79.604(ICD-10) [facility] 07/07/2024 Active Pain in both low er extremities / M79.605(ICD-10) [facility] 11/09/2023 Active Gastroesophageal reflux disease without esophagitis / K21.9(ICD-10) DEYSI NICHOLSON [facility] 01/28/2023 Active Bilateral caroti d artery stenosis / I65.23(ICD-10) DEYSI NICHOLSON [facility] 07/07/2024 Active Encounter for immunization / Z23(ICD-10) DEYSI NICHOLSON [facility] 07/07/2024 Active 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) / I50.42(ICD-10) DEYSI NICHOLSON Active [facility] PROCEDURES No Procedure Records Found RESULTS PROGRESS Observed: 01/01/2025 11:00 AM Status: COMPLETED Source: [facility] HNO ID: [id number] Author: CARLA ARRIAGA MD Service: ? Author Type: Physician Type: Progress Notes Filed: 01/01/2025 12:27 Note Text: [facility] Cardiology ([facility]) [address] [facility] [id number] OUTPATIENT VISIT DATE 01/01/2025 PRIMARY CARE PHYSICIAN: Doreen Le [address] [place] [address] HISTORY OF PRESENT ILLNESS: Ms. Sancehs is a 79 year old woman with a history of remote aortic valve replacement with homograft in 1996 and possible repair of the ascending aorta, chronic diastolic congestive heart failure, hypertension, dyslipidemia, atrial fibrillation with history of pulmonary vein isolation procedures, pacemaker placement and watchman procedure who presents for follow-up. Patient was admitted to [facility]. She was discharged after 2 days. She has been following up in the benign heart failure clinic. Most recent appointment she was changed from torsemide due to development of rash. She is currently tolerating her Lasix dosing. She has persistent lower extremity edema all the way to her mid to upper thighs. She denies PND orthopnea symptoms. She has not had palpitations, lightheadedness, dizziness, or syncope. 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 [facility] Bilateral carotid artery stenosis 11/26/2016 05/27/16 moderate 50-69% stenosis right and left Bilateral pneumonia 07/20/2015 Cancer of cervix (HCC) Cervical cancer (HCC) 1973 Chest pain 06/01/2015 negative work up with nuclar stress CHF (congestive heart failure) (HCC) Cholesteatoma of right ear surgical removal Chronic mastoiditis of left side Chronic renal failure, stage 3b (HCC) 04/15/2022 Diabetes (HCC) Diabetes (HCC) GERD (gastroesophageal reflux disease) H/O: GI bleed High blood pressure Hypercholesterolemia Mastoiditis of right side s/p mastoidectomy, complete opacitificationright tympanic cavity and mastoid cells on CT 06/01/16 Mitral valve regurgitation Pacemaker 10/21/[address] TRELL VERNON [id number] pulse generator, his bundle lead, right atrial lead Peripheral arterial disease Rheumatic fever Steatosis, liver 03/26/2014 fatty liver on US. 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 Lua PACEMAKER 10/2019 PART. HYSTERECTOMY W/WO RMVL OVARIES/TUBES 1974 h/o cervical cancer ovaries remain PAST SURGICAL HISTORY OF 1996 Aortic valve repair, Dr. Apodaca PAST SURGICAL HISTORY OF 2001 [address] Beltrán, [facility] PAST SURGICAL HISTORY OF 2016 clipping and coil for brain aneurysm SOCIAL HISTORY Social History Tobacco Use Smoking status: Former Current packs/day: 0.00 Average packs/day: 0.3 packs/day for 2.0 years (0.5 ttl pk-yrs) Types: Cigarettes Start date: 1965 Quit date: 1967 Years since quittin.5 Smokeless tobacco: Never Vaping Use Vaping status: Never Used Substance Use Topics Alcohol use: Not Currently Alcohol/week: 1.0 standard drink of alcohol Types: 1 Glasses of Wine (5oz) per week Comment: red wine 2-3 times a week- occasional Drug use: No FAMILY HISTORY Problem Relation Age of Onset other (Heart Problems) Mother other (myocardial infarction) Mother other (cardiovascular disease) Mother other (Heart Attack) Father other (cardiovascular disease) Father Diabetes Maternal Grandmother ALLERGIES: ALLERGIES Allergen Reactions Protamine Anaphylaxis Had acute drop in blood pressure and end tidal Co2 shortly after administration during watchman procedure on 01/12/22, treated with 60 mcg epinephrine and 10 mg dexamethasone with good response. Propofol Other: See Comments Hypotension MEDICATIONS: furosemide (LASIX) 40 mg tablet Take 1 tablet by mouth two times a day. dapagliflozin propanediol (FARXIGA) 10 mg tablet Take 1 tablet by mouth once daily. ferrous sulfate (IRON) 325 mg (65 mg iron) tablet Take 1 tablet by mouth once daily. pantoprazole DR (PROTONIX) 40 mg tablet Take 1 tablet by mouth two times a day. psyllium (METAMUCIL) 3.4 gram packet Take 1 packet by mouth two times a day. aspirin 81 mg chewable tablet Take 1 tablet by mouth once daily. atorvastatin (LIPITOR) 40 mg tablet Take 1 tablet by mouth once daily. clopidogrel (PLAVIX) 75 mg tablet Take 1 tablet by mouth once daily. metoprolol succinate ER (TOPROL XL) 50 mg 24 hr tablet Take 1 tablet by mouth two times a day. potassium chloride (K-TAB) 10 mEq tablet Take 1 tablet by mouth once daily. Blood Pressure Monitor (BLOOD PRESSURE KIT) 1 Each once daily. acetaminophen (TYLENOL) 500 mg tablet Take 1-2 tablets by mouth every 6 hours as needed. blood sugar diagnostic (BLOOD GLUCOSE TEST) test strip Test blood sugar(s) 2 times daily. Dx: Type 2 DM - Controlled E11.9 Insulin: No metOLazone (ZAROXOLYN) 2.5 mg tablet Take 1 tablet by mouth as needed. (Patient not taking: Reported on 01/01/2025) spironolactone (ALDACTONE) 25 mg tablet Take 12.5 mg by mouth two times a day. REVIEW OF SYSTEMS: Review of Systems Constitutional: Negative for chills, fever, malaise/fatigue and weight loss. HENT: Negative for hearing loss and sore throat. Eyes: Negative for blurred vision and double vision. Respiratory: Negative. Cardiovascular: Negative. Genitourinary: Negative for dysuria, frequency, hematuria and urgency. Musculoskeletal: Negative. Skin: Negative. Neurological: Negative for dizziness, seizures, loss of consciousness, weakness and headaches. Endo/Heme/Allergies: Negative for environmental allergies. Does not bruise/bleed easily. Psychiatric/Behavioral: Negative for depression. PHYSICAL EXAMINATION: BP 156/60 (BP Site: Right Arm, BP Position: Sitting, BP Cuff Size: Large Adult) Pulse 84 Resp 18 Ht 157.5 cm (5' 2") Wt 67.4 kg (148 lb 9.6 oz) SpO2 100% BMI 27.18 kg/m? General: Very pleasant woman sitting appears comfortable in no apparent distress. She is alert and oriented x3. HEENT: Carotid upstrokes are brisk bilaterally. Left carotid bruit noted. No JVD noted at 90 degrees. Pulmonary: Lungs are clear no rales, wheezes, rhonchi Cardiovascular: Normal S1-S2 with regular rate with an irregularly irregular tachycardia rhythm. Mid peaking 2/6 crescendo decrescendo murmur right upper sternal border. Extremities: Warm, well-perfused, 3-4+ pitting edema to the mid to upper thighs bilaterally CARDIOVASCULAR MEDICINE TESTING: Right Heart Catheterization [facility] 10/24/2024: Cardiac output (Qs) !4.1L/min ! + + + !Cardiac index !2.42L/(min-m2) ! + + + !HR, R-R, stroke volume !92bpm, 45ml ! + + + !RA pressure a/v (m) !28/28 (23) ! + + + !PA pressure s/d (m) !85/28 (51) ! + + + !PA wedge a/v (m) !/24 (23) ! + + + !Aortic pressure s/d (m) !163/81 (108) ! + + + !SVR !1650dyn-sec/cm5 ! + + + !SVRI !6591rlw-idn-v7/cm5 ! + + + !PVR !544dyn-sec/cm5 ! + + + !PVRI !957qbb-ulf-m4/cm5 ! + + + !Total systemic resistance!2097dyn-sec/cm5, 0899osf-gpk-c7/cm5! Echocardiogram [facility] 10/03/2024: 1. Left ventricle: The cavity size is normal. Wall thickness was increased in a pattern of mild LVH. Left ventricular geometry shows evidence of eccentric hypertrophy, with increased ventricular mass and normal relative wall thickness. Systolic function was normal. The estimated ejection fraction was in the range of 55% to 60%, by visual assessment. Wall motion was normal; there were no regional wall motion abnormalities. 2. Aortic valve: There is a bioprosthetic valve. The valve leaflets are not well visualized. Transvalvular velocity is within the normal range. There is no stenosis. There is trivial paravalular regurgitation. There is no central regurgitation. The mean systolic gradient is 9.00mm Hg. The valve area by the velocity-time integral method is 1.5cm2. The valve area by the peak velocity method is 1.5cm2. 3. Mitral valve: The leaflets are mildly thickened and calcified. Mobility was normal. The valve area (LVOT continuity) is 2.1cm2. 4. Left atrium: The atrium is severely dilated. 5. Right ventricle: The cavity size is mildly dilated. Pacer wire or catheter noted in right ventricle. Systolic function is mildly reduced. Systolic pressure was increased. 6. Right atrium: The atrium is dilated. 7. Pulmonic valve: There is mild regurgitation. 8. Pulmonary arteries: Systolic pressure is moderately increased. The peak pressure during systole by Doppler is 54mm Hg. 9. Inferior vena cava: The vessel was dilated. The respirophasic diameter changes were blunted (< 50%), consistent with elevated central venous pressure. Echocardiogram 11/10/2023: - The left ventricle is mildly dilated. Left ventricular systolic function is normal. EF = 58 ? 5% (2D biplane) Left ventricular diastolic function was not evaluated due to AF. - The right ventricle is dilated. Right ventricular systolic function is mildly decreased. - The left atrial cavity is moderately dilated. - The right atrial cavity is dilated. - There is mild to moderate (1-2+) mitral regurgitation. - There is moderate (2+) tricuspid valve regurgitation. - Cryolife Homograft prosthetic aortic valve (size #28). There is moderate (2+ - 3+) aortic valve regurgitation. - There is moderate (2+) pulmonic valve regurgitation. - Estimated right ventricular systolic pressure is 73 mmHg consistent with moderately severe pulmonary hypertension. Estimated right atrial pressure is 15 mmHg based on IVC assessment. - Exam was compared with the prior CC echocardiographic exam performed on 10/28/23. The patient is now in atrial fibrillation. LV function has slightly improved. Echocardiogram 10/04/2023: - The left ventricle is mildly dilated. There is mild concentric left ventricular hypertrophy. Left ventricular systolic function is mildly decreased. EF = 51 ? 5% (2D 4-ch.) Indeterminate left ventricular diastolic dysfunction. - The right ventricle is dilated. Right ventricular systolic function is mildly decreased. - The left atrial cavity is severely dilated. - The right atrial cavity is dilated. - The visualized aorta is dilated with a maximal dimension of 4.6 cm. - There is moderate (2+) holosystolic mitral valve regurgitation. - There is moderately severe (3+) tricuspid valve regurgitation. - Cryolife Homograft prosthetic aortic valve (size #28). There is moderate (2+) aortic valve regurgitation. The peak gradient is 25 mmHg, the mean gradient is 12 mmHg and the dimensionless valve index is 0.34. Prior pk/mn gradients were 29/14 mmHg. - Estimated right ventricular systolic pressure is 75 mmHg consistent with moderately severe pulmonary hypertension. Estimated right atrial pressure is 3 mmHg (although IVC not seen). - Exam was compared with the prior CC echocardiographic exam performed on 03/05/2023. There is now evidence of moderately severe tricuspid insufficiency. RVSP estimate has increased also. Transesophageal Echo 03/03/2022: - Exam indication: 45d Watchman follow-up - The left ventricle is normal in size. Left ventricular systolic function is moderately decreased. EF = 38 ? 5% (visual est.) - The right ventricle is normal in size. Right ventricular systolic function is moderately to severely decreased. - The left atrial cavity is dilated. Small Watchman roderick-device leak measuring 2mm (clip 14). - The right atrial cavity is dilated. - There is moderately severe (3+) mitral valve regurgitation due to restricted leaflet motion. Mitral Pk/Mn gradient of 16/8 mmHg at 111 bpm (prior 15/8 mmHg at 96 bpm). - Cryolife prosthetic aortic valve (size #28). There is moderate (2+ - 3+) aortic valve regurgitation. - PPM in situ. - Exam was compared with the prior PROECHO echocardiographic exam performed on 01/12/2022. Small 2mm Watchman para-device leak seen. More LV and RV dysfunction reported. Echocardiogram 10/08/2020: - Technically difficult exam due to body habitus. - Exam indication: Routine surveillance of prosthetic valve (>3yrs) - The left ventricle is moderately dilated. Left ventricular systolic function is normal. EF = 58 ? 5% (2D biplane) Indeterminate left ventricular diastolic dysfunction due to mitral valve surgery. - The right ventricle is normal in size. Right ventricular systolic function is low normal. - The left atrial cavity is severely dilated. - There is moderate (2+) mitral valve regurgitation. Regurgitant orifice area (PISA) is 0.15 cm?. - Cryolife prosthetic aortic valve (size #28). There is mild (1+ - 2+) aortic valve regurgitation. The peak gradient is 36 mmHg, the mean gradient is 19 mmHg and the dimensionless valve index is 0.32. - Estimated right ventricular systolic pressure is 70 mmHg consistent with moderately severe pulmonary hypertension. Estimated right atrial pressure is 8 mmHg based on IVC assessment. - Exam was compared with the prior echocardiographic exam performed on 03/22/2020, no significant change. Echocardiogram 03/22/20: CONCLUSIONS: - Exam indication: Routine surveillance of prosthetic valve (>3yrs) - The left ventricle is mildly dilated. There is mild concentric left ventricular hypertrophy. Left ventricular systolic function is normal. EF = 60 ? 5% (2D biplane) Grade II left ventricular diastolic dysfunction. - The right ventricle is normal in size. Right ventricular systolic function is normal. - The left atrial cavity is severely dilated. - There is moderate (2+ - 3+) mitral valve regurgitation. Regurgitant orifice area (PISA) is 0.15 cm?. - Cryolife prosthetic aortic valve (size #28). There is mild (1+ - 2+) aortic valve regurgitation. The peak gradient is 47 mmHg, the mean gradient is 23 mmHg nd the dimensionless valve index is 0.32. Prior pk/mn gradients of 24/14 mmHg. - Exam was compared with the prior CC echocardiographic exam performed on 10/24/2018, AV gradients higher on today's study. Carotid Ultrasound 01/27/2023: IMPRESSION Compared to prior study of 10/24/2018, Right internal carotid artery increase from 20-39 - 40-59% stenosis. No significant change in the left internal carotid artery. Elevated velocities noted in the left subclavian artery. *High resistive signal noted bilateral common carotid arteries. RIGHT SIDE Common carotid artery: Plaque visualized without evidence of hemodynamically significant stenosis. Internal carotid artery: 40-59% stenosis. Vertebral artery: Patent and antegrade flow noted. LEFT SIDE Common carotid artery: Plaque visualized without evidence of hemodynamically significant stenosis. Internal carotid artery: 40-59% stenosis. Tortuous vessel at proximal . Vertebral artery: Patent and antegrade flow noted. Subclavian artery: 50-99% stenosis. Carotid Ultrasound 10/24/18: IMPRESSION Irregular heart rhythm noted. RIGHT SIDE Common carotid artery: Plaque visualized without evidence of hemodynamically significant stenosis. Internal carotid artery: 20-39% stenosis. Findings may be underestimated due to calcified shadowing plaque at proximal . Vertebral artery: Patent and antegrade flow noted. LEFT SIDE Common carotid artery: Plaque visualized without evidence of hemodynamically significant stenosis. Internal carotid artery: 40-59% stenosis. Vertebral artery: Patent and antegrade flow noted. Subclavian artery: Plaque visualized without evidence of hemodynamically significant stenosis. CT Chest 04/30/2023: Heart, pericardium, and thoracic vessels: Unchanged dilatation of the ascending thoracic aorta which measures 4.5 cm in diameter. Prosthetic aortic valve. Bilateral atrial enlargement. Atrial appendage device. Coronary artery atherosclerotic calcifications are noted, although the study is not optimized for coronary assessment. No pericardial effusion or thickening. CT Chest Dilated ascending aorta 4.5 cm. Biatrial enlargement. Findings of right heart dysfunction. Coronary artery calcifications CT Kidney 02/13/20 IMPRESSION: STABLE 2.2 CM SOLID, HOMOGENOUSLY ENHANCING RIGHT UPPER POLE RENAL NEOPLASM. NO RETROPERITONEAL LYMPHADENOPATHY, RENAL VEIN THROMBUS, OR OTHER METASTATIC DISEASE. Right kidney: 2.2 x 2.2 x 2.1 cm solid, homogenously enhancing upper pole neoplasm (8:23 and 10:56), stable in size since 05/16/2019 CT and new since remote imaging 07/30/2015 CTA - possibly due to phase of exam. No calculus. Vasculature: The celiac axis and SMA are patent but of which have moderate to severe narrowing near the origins due to atherosclerotic plaque/calcification.. The portal vein and branches, splenic vein, SMV, and hepatic veins are patent. Arterial atherosclerotic disease without aneurysm. CT Aota/Fem Runoff 07/30/15 IMPRESSION: Diffuse atherosclerotic disease. Occlusion of the superficial femoral arteries bilaterally with distal reconstitution through collateral branches. Three vessels runoff throughout the legs bilaterally. High degree stenosis of the celiac origin and proximal SMA as detail above. High degree stenoses of the renal artery origins with heavily calcified atherosclerotic plaque. DUAL LEAD PPM REMOTE EVALUATION 10/04/2024: * Stored EGMs are consistent with or suggestive of Atrial Fibrillation * AT/AF Speed: 67.8% * Total number of events: 2774 Tachycardia: AF w/RVR * Stored EGMs listed as NSVT AND SVT are consistent with or suggestive of Atrial Fibrillation with Rapid Ventricular Response * AT/AF Speed: 67.8% * Total episodes: 9 * Longest episode: 28 SECS * Fastest episode:207 BPM IMPRESSION: Ms. Sanches is a 79 year old woman with an extensive cardiac history. She had undergone aortic valve replacement 1996 with a homograft and possible repair of the ascending aorta. She informed me that her preoperative cardiac catheterization demonstrated no significant obstructive coronary disease. She has a remote smoking history with a history of significant secondhand smoke exposure. 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 She underwent SMA stent placement at [facility] September 2024. She has been treated for paroxysmal atrial fibrillation and has undergone an ablation procedure. Her atrial fibrillation is now persistent. She has had a watchman device placed dueto history of GI bleed and intolerance to anticoagulation therapy. She has a history of pulmonary hypertension and right-sided congestive heart failure. She has a dual-chamber pacemaker placement for sinus node dysfunction and chronotropic incompetence. She has a history of chronic diastolic congestive heart failure in the setting of chronic kidney disease. She presents the office for follow-up. PLAN AND RECOMMENDATIONS: 1. Chronic diastolic (congestive) heart failure (HCC) - ICD9: 428.32, 428.0, ICD10: I50.32 (primary diagnosis) - SPIRONOLACTONE 25 MG TABLET - ECHO - PERFLUTREN LIPID MICROSPHERES 1.1 MG/ML INJECTION IN NS 10 ML - SODIUM CHLORIDE 0.9 % (FLUSH) INJECTION SYRINGE - BASIC METABOLIC PANEL - NT PRO BNP 2. History of prosthetic aortic valve replacement - ICD9: V43.3, ICD10: Z95.2 - ECHO - PERFLUTREN LIPID MICROSPHERES 1.1 MG/ML INJECTION IN NS 10 ML - SODIUM CHLORIDE 0.9 % (FLUSH) INJECTION SYRINGE 3. Paroxysmal atrial fibrillation (HCC) - ICD9: 427.31, ICD10: I48.0 History of watchman's procedure. Majority of the time in A-fib. Recent interrogation with pacemaker was reviewed 4. PAD (peripheral artery disease) - ICD9: 443.9, ICD10: I73.[address] Silva 5. Primary hypertension - ICD9: 401.9, ICD10: I10 Adequate control on current regimen 6. Acute on chronic diastolic congestive heart failure (HCC) - ICD9: 428.33, 428.0, ICD10: I50.33 - ECHO - PERFLUTREN LIPID MICROSPHERES 1.1 MG/ML INJECTION IN NS 10 ML - SODIUM CHLORIDE 0.9 % (FLUSH) INJECTION SYRINGE 7. Hyperlipidemia with target LDL less than 70 - ICD9: 272.4, ICD10: E78.5 Maintained on atorvastatin 40 mg daily. Carla Arriaga MD CNOV Observed: 01/01/2025 11:00 AM Status: COMPLETED Source: [facility] Office Visit (JOHNNY) BERTA SANCHES ([id number]) 1945 [facility] Date Time Provider Department 01/01/25 11:00 AM CARLA ARRIAGA During your visit today, we recorded the following information about you: Pulse Respiration Blood pressure Weight 84/minute 18/minute 156/60 67.4 kg Height 1.575 m Carla Arriaga MD 01/01/2025 12:27 PM Signed [facility] Cardiology ([facility]) [address] [facility] [id number] OUTPATIENT VISIT DATE 01/01/2025 PRIMARY CARE PHYSICIAN: Doreen Le [address] [place] [address] HISTORY OF PRESENT ILLNESS: Ms. Sanches is a 79 year old woman with a history of remote aortic valve replacement with homograft in 1996 and possible repair of the ascending aorta, chronic diastolic congestive heart failure, hypertension, dyslipidemia, atrial fibrillation with history of pulmonary vein isolation procedures, pacemaker placement and watchman procedure who presents for follow-up. Patient was admitted to [facility]. She was discharged after 2 days. She has been following up in the benign heart failure clinic. Most recent appointment she was changed from torsemide due to development of rash. She is currently tolerating her Lasix dosing. She has persistent lower extremity edema all the way to her mid to upper thighs. She denies PND orthopnea symptoms. She has not had palpitations, lightheadedness, dizziness, or syncope. 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 Aaron [facility] Bilateral carotid artery stenosis 11/26/2016 05/27/16 moderate 50-69% stenosis right and left Bilateral pneumonia 07/20/2015 Cancer of cervix (HCC) Cervical cancer (HCC) 1973 Chest pain 06/01/2015 negative work up with nuclar stress CHF (congestive heart failure) (HCC) Cholesteatoma of right ear surgical removal Chronic mastoiditis of left side Chronic renal failure, stage 3b (HCC) 04/15/2022 Diabetes (HCC) Diabetes (HCC) GERD (gastroesophageal reflux disease) H/O: GI bleed High blood pressure Hypercholesterolemia Mastoiditis of right side s/p mastoidectomy, complete opacitificationright tympanic cavity and mastoid cells on CT 06/01/16 Mitral valve regurgitation Pacemaker 10/21/[address] TRELL VERNON [id number] pulse generator, his bundle lead, right atrial lead Peripheral arterial disease Rheumatic fever Steatosis, liver 03/26/2014 fatty liver on US. 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 Lua PACEMAKER 10/2019 PART. HYSTERECTOMY W/WO RMVL OVARIES/TUBES 1974 h/o cervical cancer ovaries remain PAST SURGICAL HISTORY OF 1996 Aortic valve repair, Dr. Apodaca PAST SURGICAL HISTORY OF 2001 [address] Beltrán, [facility] PAST SURGICAL HISTORY OF 2015 clipping and coil for brain aneurysm SOCIAL HISTORY Social History Tobacco Use Smoking status: Former Current packs/day: 0.00 Average packs/day: 0.3 packs/day for 2.0 years (0.5 ttl pk-yrs) Types: Cigarettes Start date: 1965 Quit date: 1967 Years since quittin.5 Smokeless tobacco: Never Vaping Use Vaping status: Never Used Substance Use Topics Alcohol use: Not Currently Alcohol/week: 1.0 standard drink of alcohol Types: 1 Glasses of Wine (5oz) per week Comment: red wine 2-3 times a week- occasional Drug use: No FAMILY HISTORY Problem Relation Age of Onset other (Heart Problems) Mother other (myocardial infarction) Mother other (cardiovascular disease) Mother other (Heart Attack) Father other (cardiovascular disease) Father Diabetes Maternal Grandmother ALLERGIES: ALLERGIES Allergen Reactions Protamine Anaphylaxis Had acute drop in blood pressure and end tidal Co2 shortly after administration during watchman procedure on 01/12/22, treated with 60 mcg epinephrine and 10 mg dexamethasone with good response. Propofol Other: See Comments Hypotension MEDICATIONS: furosemide (LASIX) 40 mg tablet Take 1 tablet by mouth two times a day. dapagliflozin propanediol (FARXIGA) 10 mg tablet Take 1 tablet by mouth once daily. ferrous sulfate (IRON) 325 mg (65 mg iron) tablet Take 1 tablet by mouth once daily. pantoprazole DR (PROTONIX) 40 mg tablet Take 1 tablet by mouth two times a day. psyllium (METAMUCIL) 3.4 gram packet Take 1 packet by mouth two times a day. aspirin 81 mg chewable tablet Take 1 tablet by mouth once daily. atorvastatin (LIPITOR) 40 mg tablet Take 1 tablet by mouth once daily. clopidogrel (PLAVIX) 75 mg tablet Take 1 tablet by mouth once daily. metoprolol succinate ER (TOPROL XL) 50 mg 24 hr tablet Take 1 tablet by mouth two times a day. potassium chloride (K-TAB) 10 mEq tablet Take 1 tablet by mouth once daily. Blood Pressure Monitor (BLOOD PRESSURE KIT) 1 Each once daily. acetaminophen (TYLENOL) 500 mg tablet Take 1-2 tablets by mouth every 6 hours as needed. blood sugar diagnostic (BLOOD GLUCOSE TEST) test strip Test blood sugar(s) 2 times daily. Dx: Type 2 DM - Controlled E11.9 Insulin: No metOLazone (ZAROXOLYN) 2.5 mg tablet Take 1 tablet by mouth as needed. (Patient not taking: Reported on 01/01/2025) spironolactone (ALDACTONE) 25 mg tablet Take 12.5 mg by mouth two times a day. REVIEW OF SYSTEMS: Review of Systems Constitutional: Negative for chills, fever, malaise/fatigue and weight loss. HENT: Negative for hearing loss and sore throat. Eyes: Negative for blurred vision and double vision. Respiratory: Negative. Cardiovascular: Negative. Genitourinary: Negative for dysuria, frequency, hematuria and urgency. Musculoskeletal: Negative. Skin: Negative. Neurological: Negative for dizziness, seizures, loss of consciousness, weakness and headaches. Endo/Heme/Allergies: Negative for environmental allergies. Does not bruise/bleed easily. Psychiatric/Behavioral: Negative for depression. PHYSICAL EXAMINATION: BP 156/60 (BP Site: Right Arm, BP Position: Sitting, BP Cuff Size: Large Adult) Pulse 84 Resp 18 Ht 157.5 cm (5' 2") Wt 67.4 kg (148 lb 9.6 oz) SpO2 100% BMI 27.18 kg/m? General: Very pleasant woman sitting appears comfortable in no apparent distress. She is alert and oriented x3. HEENT: Carotid upstrokes are brisk bilaterally. Left carotid bruit noted. No JVD noted at 90 degrees. Pulmonary: Lungs are clear no rales, wheezes, rhonchi Cardiovascular: Normal S1-S2 with regular rate with an irregularly irregular tachycardia rhythm. Mid peaking 2/6 crescendo decrescendo murmur right upper sternal border. Extremities: Warm, well-perfused, 3-4+ pitting edema to the mid to upper thighs bilaterally CARDIOVASCULAR MEDICINE TESTING: Right Heart Catheterization [facility] 10/24/2024: Cardiac output (Qs) !4.1L/min ! + + + !Cardiac index !2.42L/(min-m2) ! + + + !HR, R-R, stroke volume !92bpm, 45ml ! + + + !RA pressure a/v (m) ! (23) ! + + + !PA pressure s/d (m) !85/28 (51) ! + + + !PA wedge a/v (m) !/24 (23) ! + + + !Aortic pressure s/d (m) !163/81 (108) ! + + + !SVR !1650dyn-sec/cm5 ! + + + !SVRI !1170lwl-nov-f2/cm5 ! + + + !PVR !544dyn-sec/cm5 ! + + + !PVRI !408qfb-jvj-b0/cm5 ! + + + !Total systemic resistance!2097dyn-sec/cm5, 2961xoh-mji-b8/cm5! Echocardiogram [facility] 10/03/2024: 1. Left ventricle: The cavity size is normal. Wall thickness was increased in a pattern of mild LVH. Left ventricular geometry shows evidence of eccentric hypertrophy, with increased ventricular mass and normal relative wall thickness. Systolic function was normal. The estimated ejection fraction was in the range of 55% to 60%, by visual assessment. Wall motion was normal; there were no regional wall motion abnormalities. 2. Aortic valve: There is a bioprosthetic valve. The valve leaflets are not well visualized. Transvalvular velocity is within the normal range. There is no stenosis. There is trivial paravalular regurgitation. There is no central regurgitation. The mean systolic gradient is 9.00mm Hg. The valve area by the velocity-time integral method is 1.5cm2. The valve area by the peak velocity method is 1.5cm2. 3. Mitral valve: The leaflets are mildly thickened and calcified. Mobility was normal. The valve area (LVOT continuity) is 2.1cm2. 4. Left atrium: The atrium is severely dilated. 5. Right ventricle: The cavity size is mildly dilated. Pacer wire or catheter noted in right ventricle. Systolic function is mildly reduced. Systolic pressure was increased. 6. Right atrium: The atrium is dilated. 7. Pulmonic valve: There is mild regurgitation. 8. Pulmonary arteries: Systolic pressure is moderately increased. The peak pressure during systole by Doppler is 54mm Hg. 9. Inferior vena cava: The vessel was dilated. The respirophasic diameter changes were blunted (< 50%), consistent with elevated central venous pressure. Echocardiogram 11/10/2023: - The left ventricle is mildly dilated. Left ventricular systolic function is normal. EF = 58 ? 5% (2D biplane) Left ventricular diastolic function was not evaluated due to AF. - The right ventricle is dilated. Right ventricular systolic function is mildly decreased. - The left atrial cavity is moderately dilated. - The right atrial cavity is dilated. - There is mild to moderate (1-2+) mitral regurgitation. - There is moderate (2+) tricuspid valve regurgitation. - Cryolife Homograft prosthetic aortic valve (size #28). There is moderate (2+ - 3+) aortic valve regurgitation. - There is moderate (2+) pulmonic valve regurgitation. - Estimated right ventricular systolic pressure is 73 mmHg consistent with moderately severe pulmonary hypertension. Estimated right atrial pressure is 15 mmHg based on IVC assessment. - Exam was compared with the prior CC echocardiographic exam performed on 10/28/23. The patient is now in atrial fibrillation. LV function has slightly improved. Echocardiogram 10/04/2023: - The left ventricle is mildly dilated. There is mild concentric left ventricular hypertrophy. Left ventricular systolic function is mildly decreased. EF = 51 ? 5% (2D 4-ch.) Indeterminate left ventricular diastolic dysfunction. - The right ventricle is dilated. Right ventricular systolic function is mildly decreased. - The left atrial cavity is severely dilated. - The right atrial cavity is dilated. - The visualized aorta is dilated with a maximal dimension of 4.6 cm. - There is moderate (2+) holosystolic mitral valve regurgitation. - There is moderately severe (3+) tricuspid valve regurgitation. - Cryolife Homograft prosthetic aortic valve (size #28). There is moderate (2+) aortic valve regurgitation. The peak gradient is 25 mmHg, the mean gradient is 12 mmHg and the dimensionless valve index is 0.34. Prior pk/mn gradients were 29/14 mmHg. - Estimated right ventricular systolic pressure is 75 mmHg consistent with moderately severe pulmonary hypertension. Estimated right atrial pressure is 3 mmHg (although IVC not seen). - Exam was compared with the prior CC echocardiographic exam performed on 03/05/2023. There is now evidence of moderately severe tricuspid insufficiency. RVSP estimate has increased also. Transesophageal Echo 03/03/2022: - Exam indication: 45d Watchman follow-up - The left ventricle is normal in size. Left ventricular systolic function is moderately decreased. EF = 38 ? 5% (visual est.) - The right ventricle is normal in size. Right ventricular systolic function is moderately to severely decreased. - The left atrial cavity is dilated. Small Watchman roderikc-device leak measuring 2mm (clip 14). - The right atrial cavity is dilated. - There is moderately severe (3+) mitral valve regurgitation due to restricted leaflet motion. Mitral Pk/Mn gradient of 16/8 mmHg at 111 bpm (prior 15/8 mmHg at 96 bpm). - Cryolife prosthetic aortic valve (size #28). There is moderate (2+ - 3+) aortic valve regurgitation. - PPM in situ. - Exam was compared with the prior PROECHO echocardiographic exam performed on 01/12/2022. Small 2mm Watchman para-device leak seen. More LV and RV dysfunction reported. Echocardiogram 10/08/2020: - Technically difficult exam due to body habitus. - Exam indication: Routine surveillance of prosthetic valve (>3yrs) - The left ventricle is moderately dilated. Left ventricular systolic function is normal. EF = 58 ? 5% (2D biplane) Indeterminate left ventricular diastolic dysfunction due to mitral valve surgery. - The right ventricle is normal in size. Right ventricular systolic function is low normal. - The left atrial cavity is severely dilated. - There is moderate (2+) mitral valve regurgitation. Regurgitant orifice area (PISA) is 0.15 cm?. - Cryolife prosthetic aortic valve (size #28). There is mild (1+ - 2+) aortic valve regurgitation. The peak gradient is 36 mmHg, the mean gradient is 19 mmHg and the dimensionless valve index is 0.32. - Estimated right ventricular systolic pressure is 70 mmHg consistent with moderately severe pulmonary hypertension. Estimated right atrial pressure is 8 mmHg based on IVC assessment. - Exam was compared with the prior echocardiographic exam performed on 03/22/2020, no significant change. Echocardiogram 03/22/20: CONCLUSIONS: - Exam indication: Routine surveillance of prosthetic valve (>3yrs) - The left ventricle is mildly dilated. There is mild concentric left ventricular hypertrophy. Left ventricular systolic function is normal. EF = 60 ? 5% (2D biplane) Grade II left ventricular diastolic dysfunction. - The right ventricle is normal in size. Right ventricular systolic function is normal. - The left atrial cavity is severely dilated. - There is moderate (2+ - 3+) mitral valve regurgitation. Regurgitant orifice area (PISA) is 0.15 cm?. - Cryolife prosthetic aortic valve (size #28). There is mild (1+ - 2+) aortic valve regurgitation. The peak gradient is 47 mmHg, the mean gradient is 23 mmHg nd the dimensionless valve index is 0.32. Prior pk/mn gradients of 24/14 mmHg. - Exam was compared with the prior CC echocardiographic exam performed on 10/24/2018, AV gradients higher on today's study. Carotid Ultrasound 01/27/2023: IMPRESSION Compared to prior study of 10/24/2018, Right internal carotid artery increase from 20-39 - 40-59% stenosis. No significant change in the left internal carotid artery. Elevated velocities noted in the left subclavian artery. *High resistive signal noted bilateral common carotid arteries. RIGHT SIDE Common carotid artery: Plaque visualized without evidence of hemodynamically significant stenosis. Internal carotid artery: 40-59% stenosis. Vertebral artery: Patent and antegrade flow noted. LEFT SIDE Common carotid artery: Plaque visualized without evidence of hemodynamically significant stenosis. Internal carotid artery: 40-59% stenosis. Tortuous vessel at proximal . Vertebral artery: Patent and antegrade flow noted. Subclavian artery: 50-99% stenosis. Carotid Ultrasound 10/24/18: IMPRESSION Irregular heart rhythm noted. RIGHT SIDE Common carotid artery: Plaque visualized without evidence of hemodynamically significant stenosis. Internal carotid artery: 20-39% stenosis. Findings may be underestimated due to calcified shadowing plaque at proximal . Vertebral artery: Patent and antegrade flow noted. LEFT SIDE Common carotid artery: Plaque visualized without evidence of hemodynamically significant stenosis. Internal carotid artery: 40-59% stenosis. Vertebral artery: Patent and antegrade flow noted. Subclavian artery: Plaque visualized without evidence of hemodynamically significant stenosis. CT Chest 04/30/2023: Heart, pericardium, and thoracic vessels: Unchanged dilatation of the ascending thoracic aorta which measures 4.5 cm in diameter. Prosthetic aortic valve. Bilateral atrial enlargement. Atrial appendage device. Coronary artery atherosclerotic calcifications are noted, although the study is not optimized for coronary assessment. No pericardial effusion or thickening. CT Chest Dilated ascending aorta 4.5 cm. Biatrial enlargement. Findings of right heart dysfunction. Coronary artery calcifications CT Kidney 02/13/20 IMPRESSION: STABLE 2.2 CM SOLID, HOMOGENOUSLY ENHANCING RIGHT UPPER POLE RENAL NEOPLASM. NO RETROPERITONEAL LYMPHADENOPATHY, RENAL VEIN THROMBUS, OR OTHER METASTATIC DISEASE. Right kidney: 2.2 x 2.2 x 2.1 cm solid, homogenously enhancing upper pole neoplasm (8:23 and 10:56), stable in size since 05/16/2019 CT and new since remote imaging 07/30/2015 CTA - possibly due to phase of exam. No calculus. Vasculature: The celiac axis and SMA are patent but of which have moderate to severe narrowing near the origins due to atherosclerotic plaque/calcification.. The portal vein and branches, splenic vein, SMV, and hepatic veins are patent. Arterial atherosclerotic disease without aneurysm. CT Aota/Fem Runoff 07/30/15 IMPRESSION: Diffuse atherosclerotic disease. Occlusion of the superficial femoral arteries bilaterally with distal reconstitution through collateral branches. Three vessels runoff throughout the legs bilaterally. High degree stenosis of the celiac origin and proximal SMA as detail above. High degree stenoses of the renal artery origins with heavily calcified atherosclerotic plaque. DUAL LEAD PPM REMOTE EVALUATION 10/04/2024: * Stored EGMs are consistent with or suggestive of Atrial Fibrillation * AT/AF Speed: 67.8% * Total number of events: 2774 Tachycardia: AF w/RVR * Stored EGMs listed as NSVT AND SVT are consistent with or suggestive of Atrial Fibrillation with Rapid Ventricular Response * AT/AF Speed: 67.8% * Total episodes: 9 * Longest episode: 28 SECS * Fastest episode:207 BPM IMPRESSION: Ms. Sanches is a 79 year old woman with an extensive cardiac history. She had undergone aortic valve replacement 1996 with a homograft and possible repair of the ascending aorta. She informed me that her preoperative cardiac catheterization demonstrated no significant obstructive coronary disease. She has a remote smoking history with a history of significant secondhand smoke exposure. 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 She underwent SMA stent placement at [facility] September 2024. She has been treated for paroxysmal atrial fibrillation and has undergone an ablation procedure. Her atrial fibrillation is now persistent. She has had a watchman device placed due to history of GI bleed and intolerance to anticoagulation therapy. She has a history of pulmonary hypertension and right-sided congestive heart failure. She has a dual-chamber pacemaker placement for sinus node dysfunction and chronotropic incompetence. She has a history of chronic diastolic congestive heart failure in the setting of chronic kidney disease. She presents the office for follow-up. PLAN AND RECOMMENDATIONS: 1. Chronic diastolic (congestive) heart failure (HCC) - ICD9: 428.32, 428.0, ICD10: I50.32 (primary diagnosis) - SPIRONOLACTONE 25 MG TABLET - ECHO - PERFLUTREN LIPID MICROSPHERES 1.1 MG/ML INJECTION IN NS 10 ML - SODIUM CHLORIDE 0.9 % (FLUSH) INJECTION SYRINGE - BASIC METABOLIC PANEL - NT PRO BNP 2. History of prosthetic aortic valve replacement - ICD9: V43.3, ICD10: Z95.2 - ECHO - PERFLUTREN LIPID MICROSPHERES 1.1 MG/ML INJECTION IN NS 10 ML - SODIUM CHLORIDE 0.9 % (FLUSH) INJECTION SYRINGE 3. Paroxysmal atrial fibrillation (HCC) - ICD9: 427.31, ICD10: I48.0 History of watchman's procedure. Majority of the time in A-fib. Recent interrogation with pacemaker was reviewed 4. PAD (peripheral artery disease) - ICD9: 443.9, ICD10: I73.[address] Silva 5. Primary hypertension - ICD9: 401.9, ICD10: I10 Adequate control on current regimen 6. Acute on chronic diastolic congestive heart failure (HCC) - ICD9: 428.33, 428.0, ICD10: I50.33 - ECHO - PERFLUTREN LIPID MICROSPHERES 1.1 MG/ML INJECTION IN NS 10 ML - SODIUM CHLORIDE 0.9 % (FLUSH) INJECTION SYRINGE 7. Hyperlipidemia with target LDL less than 70 - ICD9: 272.4, ICD10: E78.5 Maintained on atorvastatin 40 mg daily. MD Joan Beard David Paul, MD 01/01/2025 11:12 AM Signed I have written you for lasix 40 mg pills Take two in the morning (80 mg) and one (40 mg) in the afternoon for this week Wed-Wednesday Repeat blood work next wednesday Allergies As of Date: 01/01/2025 Noted Allergy Reaction PROTAMINE 01/12/2022 10 - Anaphylaxis Comments: Had acute drop in blood pressure and end tidal Co2 shortly after administration during watchman procedure on 01/12/22, treated with 60 mcg epinephrine and 10 mg dexamethasone with good response. PROPOFOL 04/07/2023 14 - Other: See Comments Comments: Hypotension Date Reviewed: 01/01/2025 Reviewed by: Carla Arriaga MD - Fully Assessed Reason for Visit: Follow Up [171] Cmt: patient has concerns Primary Visit Diagnosis:Chronic diastolic (congestive) heart failure (HCC) [I50.32] Other Visit Diagnoses:History of prosthetic aortic valve replacement [Z95.2] Paroxysmal atrial fibrillation (HCC) [I48.0] PAD (peripheral artery disease) [I73.9] Primary hypertension [I10] Acute on chronic diastolic congestive heart failure (HCC) [I50.33] Hyperlipidemia with target LDL less than 70 [E78.5] Order(s):spironolactone (ALDACTONE) 25 mg tabletTake 0.5 tablets by mouth two times a day. Take 30 min prior to lasixDisp: 90 tabletRfl: 3 ECHO [[id number]] Order #: [id number]: 1 FUTURE furosemide (LASIX) 40 mg tabletTake 1 tablet by mouth two times a day.Disp: 180 tabletRfl: 3 BASIC METABOLIC PANEL [SQBMP] Order #: [id number] FUTURE NT PRO BNP [SQNTBNP] Order #: [id number] FUTURE Prescriptions as of 01/01/2025 - spironolactone (ALDACTONE) 25 mg tablet Take 0.5 tablets by mouth two times a day. Take 30 min prior to lasix - furosemide (LASIX) 40 mg tablet Take 1 tablet by mouth two times a day. - metOLazone (ZAROXOLYN) 2.5 mg tablet Take 1 tablet by mouth as needed. - dapagliflozin propanediol (FARXIGA) 10 mg tablet Take 1 tablet by mouth once daily. - ferrous sulfate (IRON) 325 mg (65 mg iron) tablet Take 1 tablet by mouth once daily. - pantoprazole DR (PROTONIX) 40 mg tablet Take 1 tablet by mouth two times a day. - psyllium (METAMUCIL) 3.4 gram packet Take 1 packet by mouth two times a day. - aspirin 81 mg chewable tablet Take 1 tablet by mouth once daily. - atorvastatin (LIPITOR) 40 mg tablet Take 1 tablet by mouth once daily. - clopidogrel (PLAVIX) 75 mg tablet Take 1 tablet by mouth once daily. - metoprolol succinate ER (TOPROL XL) 50 mg 24 hr tablet Take 1 tablet by mouth two times a day. - potassium chloride (K-TAB) 10 mEq tablet Take 1 tablet by mouth once daily. - Blood Pressure Monitor (BLOOD PRESSURE KIT) 1 Each once daily. - acetaminophen (TYLENOL) 500 mg tablet Take 1-2 tablets by mouth every 6 hours as needed. - blood sugar diagnostic (BLOOD GLUCOSE TEST) test strip Test blood sugar(s) 2 times daily. Dx: Type 2 DM - Controlled E11.9 Insulin: No Problem List As Of Date 01/01/2025 Noted Resolved History of prosthetic aortic valve replacement *10/10/2013 Aortic prosthetic valve regurgitation [T82.897A]10/10/2013 Paroxysmal atrial fibrillation (HCC) [I48.0] 10/10/2013 HTN (hypertension) [I10] 10/10/2013 Hyperlipidemia with target LDL less than 70 [E7*11/20/2013 Type 2 diabetes mellitus without complication, *11/20/2013 09/12/2021 GERD (gastroesophageal reflux disease) [K21.9] 11/20/2013 Chronic anticoagulation [Z79.01] 11/20/2013 Fatigue [R53.83] 11/20/2013 SOB (shortness of breath) [R06.02] 11/20/2013 11/12/2023 H/O rheumatic heart disease [Z86.79] 11/20/2013 SUMMARY [V999.95] 12/09/2013 12/22/2018 Carotid artery disease (HCC) [I77.9] 12/09/2013 09/12/2021 Routine health maintenance [Z00.00] 01/08/2014 09/12/2021 Basal cell carcinoma [C44.91] 01/08/2014 Left shoulder pain [M25.512] 02/26/2014 Abdominal pain [R10.9] 02/26/2014 03/21/2022 Intracranial aneurysm [I67.1] 08/30/2015 10/05/2022 prison current use of antiarrhythmic medical*10/20/2016 09/12/2021 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] 11/19/2016 12/22/2018 Bilateral carotid artery stenosis [I65.23] 11/26/2016 Osteopenia of left lower leg [M85.862] 11/26/2016 Mastoiditis of right side [H70.91] 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] Personal history of colonic polyps [Z86.0100] 01/06/2017 Aortic stenosis [I35.0] 01/06/2017 12/22/2018 History of ischemic colitis [Z87.19] 01/06/2017 Adenomatous polyp of descending colon [D12.4] 01/06/2017 Skin cancer [C44.90] 01/06/2017 PAD (peripheral artery disease) (HCC) [I73.9] 01/06/2017 Pedro aneurysm of anterior communicating artery* Stage 3 chronic renal impairment associated wit*03/11/2017 Other chest pain [R07.89] 03/27/2019 09/19/2020 History of pulmonary embolism [Z86.711] 03/27/2019 Ascending aorta dilatation (HCC) [I77.810] 03/27/2019 Chronic bilateral pleural effusions [J90] 03/27/2019 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] 06/15/2019 Right renal mass [N28.89] 06/16/2019 Diverticulitis of large intestine with perforat*06/16/2019 09/12/2021 Diverticulitis large intestine w/o perforation *07/18/2019 Renal cell carcinoma, right (HCC) [C64.1] 10/17/2019 Iron deficiency anemia [D50.9] 10/24/2019 Anemia due to GI blood loss [D50.0] 10/24/2019 03/22/2022 Renal cell carcinoma (HCC) [C64.9] 10/24/2019 09/12/2021 Hypomagnesemia [E83.42] 10/26/2019 Gastrointestinal hemorrhage associated with acu*02/15/2020 Esophageal stenosis [K22.2] 10/28/2019 Dilated cardiomyopathy (HCC) [I42.0] 03/22/2020 Acute on chronic combined systolic and diastoli*09/19/2020 11/12/2023 SSS (sick sinus syndrome) (HCC) [I49.5] 10/21/2020 Encounter for support and coordination of trans*02/15/2021 09/12/2021 Duodenal ulcer [K26.9] 05/20/2021 Type 2 diabetes mellitus with diabetic peripher*09/12/2021 Atrial fibrillation (HCC) [I48.91] 01/12/2022 04/11/2023 Melena [K92.1] 02/22/2022 02/24/2022 Acute kidney injury (HCC) [N17.9] 02/22/2022 02/24/2022 Acute on chronic systolic heart failure (HCC) [*03/19/2022 03/22/2022 Longstanding persistent atrial fibrillation (HC*03/20/2022 S/P placement of cardiac pacemaker [Z95.0] 03/20/2022 CKD (chronic kidney disease) [N18.9] 03/21/2022 Platelet inhibition due to Plavix [Z79.02] 03/21/2022 Diverticulosis [K57.90] 03/21/2022 Lung nodule, solitary [R91.1] 03/22/2022 Red blood cell antibody positive [R76.8] 03/23/2022 Iron 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 *04/07/2022 Iron malabsorption [K90.9] 04/07/2022 Chronic renal failure, stage 3b (HCC) [N18.32] 04/15/2022 Spondylolisthesis at L4-L5 level [M43.16] 07/07/2022 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 Acute on chronic diastolic congestive heart karina*11/09/2023 Acute on chronic diastolic CHF (congestive hear*12/10/2024 Other instructions from your clinician: I have written you for lasix 40 mg pills Take two in the morning (80 mg) and one (40 mg) in the afternoon for this week Wed-Wednesday Repeat blood work next wednesday Prescriptions ordered this encounter Disp Refills Start End SPIRONOLACTONE 25 MG TABLET 90 t* 3 01/01/2025 Route: PO Sig: Take 0.5 tablets by mouth two times a day. Take 30 min prior to lasix FUROSEMIDE 40 MG TABLET 180 * 3 01/01/2025 Route: PO Sig: Take 1 tablet by mouth two times a day. Medications Discontinued During This Encounter Prescriptions - spironolactone (ALDACTONE) 25 mg tablet (Discontinued) Take 12.5 mg by mouth two times a day. - furosemide (LASIX) 40 mg tablet (Discontinued) Take 1 tablet by mouth two times a day. Disposition: Return in about 4 months (around 05/03/2025). Follow-up and Disposition History for Encounter Date Provider Department Center 01/01/2025 [id number] ARRIAGA [facility] Encounter Status:Closed by CARLA ARRIAGA on 01/01/25 LIYA Observed: 12/26/2024 12:00 AM Status: COMPLETED Source: [facility] Telephone ([facility]) BERTA SANCHES ([id number]) 1945 F [place] Date Time Provider Department 12/26/24 ALBIN GU [facility] During your visit today, we recorded the following information about you: Albin Gu APRN.[employer] 12/26/2024 9:45 AM Signed Patient called to report weight of 148 lbs. Received intravenous lasix last week in which she gained 4 lbs the following day. Denies lower leg swelling to ankles; however, thigh swelling is worse. Will try 2.5 mg metolazone for 2 days. Instructions reviewed with patient on how to take. She is also to take additional potassium tablet for 2 days. She is to call the office on Wednesday morning to review weight and symptoms. Reviewed plan of care with patient. All questions answered at this time. Albin Gu APRN.[facility] Allergies As of Date: 12/26/2024 Noted Allergy Reaction PROTAMINE 01/12/2022 10 - Anaphylaxis Comments: Had acute drop in blood pressure and end tidal Co2 shortly after administration during watchman procedure on 01/12/22, treated with 60 mcg epinephrine and 10 mg dexamethasone with good response. PROPOFOL 04/07/2023 14 - Other: See Comments Comments: Hypotension Date Reviewed: 12/20/2024 Reviewed by: Verito Anderson OCCA - Fully Assessed Reason for Visit: Returning Patient's Call [[id number]] Prescriptions as of 12/26/2024 - metOLazone (ZAROXOLYN) 2.5 mg tablet Take 1 tablet by mouth as needed. - furosemide (LASIX) 40 mg tablet Take 1 tablet by mouth two times a day. - dapagliflozin propanediol (FARXIGA) 10 mg tablet Take 1 tablet by mouth once daily. - ferrous sulfate (IRON) 325 mg (65 mg iron) tablet Take 1 tablet by mouth once daily. - pantoprazole DR (PROTONIX) 40 mg tablet Take 1 tablet by mouth two times a day. - psyllium (METAMUCIL) 3.4 gram packet Take 1 packet by mouth two times a day. - aspirin 81 mg chewable tablet Take 1 tablet by mouth once daily. - atorvastatin (LIPITOR) 40 mg tablet Take 1 tablet by mouth once daily. - clopidogrel (PLAVIX) 75 mg tablet Take 1 tablet by mouth once daily. - spironolactone (ALDACTONE) 25 mg tablet Take 12.5 mg by mouth two times a day. - metoprolol succinate ER (TOPROL XL) 50 mg 24 hr tablet Take 1 tablet by mouth two times a day. - potassium chloride (K-TAB) 10 mEq tablet Take 1 tablet by mouth once daily. - Blood Pressure Monitor (BLOOD PRESSURE KIT) 1 Each once daily. - acetaminophen (TYLENOL) 500 mg tablet Take 1-2 tablets by mouth every 6 hours as needed. - blood sugar diagnostic (BLOOD GLUCOSE TEST) test strip Test blood sugar(s) 2 times daily. Dx: Type 2 DM - Controlled E11.9 Insulin: No Problem List As Of Date 12/26/2024 Noted Resolved History of prosthetic aortic valve replacement *10/10/2013 Aortic prosthetic valve regurgitation [T82.897A]10/10/2013 Paroxysmal atrial fibrillation (HCC) [I48.0] 10/10/2013 04/11/2023 HTN (hypertension) [I10] 10/10/2013 Hyperlipidemia with target LDL less than 70 [E7*11/20/2013 Type 2 diabetes mellitus without complication, *11/20/2013 09/12/2021 GERD (gastroesophageal reflux disease) [K21.9] 11/20/2013 Chronic anticoagulation [Z79.01] 11/20/2013 Fatigue [R53.83] 11/20/2013 SOB (shortness of breath) [R06.02] 11/20/2013 11/12/2023 H/O rheumatic heart disease [Z86.79] 11/20/2013 SUMMARY [V999.95] 12/09/2013 12/22/2018 Carotid artery disease (HCC) [I77.9] 12/09/2013 09/12/2021 Routine health maintenance [Z00.00] 01/08/2014 09/12/2021 Basal cell carcinoma [C44.91] 01/08/2014 Left shoulder pain [M25.512] 02/26/2014 Abdominal pain [R10.9] 02/26/2014 03/21/2022 Intracranial aneurysm [I67.1] 08/30/2015 10/05/2022 prison current use of antiarrhythmic medical*10/20/2016 09/12/2021 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] 11/19/2016 12/22/2018 Bilateral carotid artery stenosis [I65.23] 11/26/2016 Osteopenia of left lower leg [M85.862] 11/26/2016 Mastoiditis of right side [H70.91] 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] Personal history of colonic polyps [Z86.0100] 01/06/2017 Aortic stenosis [I35.0] 01/06/2017 12/22/2018 History of ischemic colitis [Z87.19] 01/06/2017 Adenomatous polyp of descending colon [D12.4] 01/06/2017 Skin cancer [C44.90] 01/06/2017 PAD (peripheral artery disease) (HCC) [I73.9] 01/06/2017 Pedro aneurysm of anterior communicating artery* Stage 3 chronic renal impairment associated wit*03/11/2017 Other chest pain [R07.89] 03/27/2019 09/19/2020 History of pulmonary embolism [Z86.711] 03/27/2019 Ascending aorta dilatation (HCC) [I77.810] 03/27/2019 Chronic bilateral pleural effusions [J90] 03/27/2019 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] 06/15/2019 Right renal mass [N28.89] 06/16/2019 Diverticulitis of large intestine with perforat*06/16/2019 09/12/2021 Diverticulitis large intestine w/o perforation *07/18/2019 Renal cell carcinoma, right (HCC) [C64.1] 10/17/2019 Iron deficiency anemia [D50.9] 10/24/2019 Anemia due to GI blood loss [D50.0] 10/24/2019 03/22/2022 Renal cell carcinoma (HCC) [C64.9] 10/24/2019 09/12/2021 Hypomagnesemia [E83.42] 10/26/2019 Gastrointestinal hemorrhage associated with acu*02/15/2020 Esophageal stenosis [K22.2] 10/28/2019 Dilated cardiomyopathy (HCC) [I42.0] 03/22/2020 Acute on chronic combined systolic and diastoli*09/19/2020 11/12/2023 SSS (sick sinus syndrome) (HCC) [I49.5] 10/21/2020 Encounter for support and coordination of trans*02/15/2021 09/12/2021 Duodenal ulcer [K26.9] 05/20/2021 Type 2 diabetes mellitus with diabetic peripher*09/12/2021 Atrial fibrillation (HCC) [I48.91] 01/12/2022 04/11/2023 Melena [K92.1] 02/22/2022 02/24/2022 Acute kidney injury (HCC) [N17.9] 02/22/2022 02/24/2022 Acute on chronic systolic heart failure (HCC) [*03/19/2022 03/22/2022 Longstanding persistent atrial fibrillation (HC*03/20/2022 S/P placement of cardiac pacemaker [Z95.0] 03/20/2022 CKD (chronic kidney disease) [N18.9] 03/21/2022 Platelet inhibition due to Plavix [Z79.02] 03/21/2022 Diverticulosis [K57.90] 03/21/2022 Lung nodule, solitary [R91.1] 03/22/2022 Red blood cell antibody positive [R76.8] 03/23/2022 Iron 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 *04/07/2022 Iron malabsorption [K90.9] 04/07/2022 Chronic renal failure, stage 3b (HCC) [N18.32] 04/15/2022 Spondylolisthesis at L4-L5 level [M43.16] 07/07/2022 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 Acute on chronic diastolic congestive heart karina*11/09/2023 Acute on chronic diastolic CHF (congestive hear*12/10/2024 Encounter Status:Closed by ALBIN GU on 12/26/24 PROGRESS Observed: 12/20/2024 8:53 AM Status: COMPLETED Source: [facility] HNO ID: [id number] Author: SONAL SILVA, DO Service: ? Author Type: Physician Type: Progress Notes Filed: 12/20/2024 17:56 Note Text: [facility] [place] DEPARTMENT OF VASCULAR SURGERY OUTPATIENT VISIT DATE December 20, 2024 OUTPATIENT VISIT TYPE ESTABLISHED SERVICE DATE: 12/20/2024 SERVICE TIME: 8:53 AM PRIMARY CARE PHYSICIAN: Deysi Nicholson APRN.[employer] HISTORY OF PRESENT ILLNESS: Ms. Sanches is a 79 year old female who presents today for a vascular surgery follow-up visit follow up on mesenteric duplex. She recently increased her lasix at the CHF clinic. She had a stent placed in [place] in September. She was recently admitted to [place] for anemia. She has noted increased swelling. 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 Lua PACEMAKER 10/2019 PART. HYSTERECTOMY W/WO RMVL OVARIES/TUBES 1974 h/o cervical cancer ovaries remain PAST SURGICAL HISTORY OF 1996 Aortic valve repair, Dr. Apodaca PAST SURGICAL HISTORY OF 2001 [address] Beltrán, [facility] PAST SURGICAL HISTORY OF 2015 clipping and coil for brain aneurysm SOCIAL HISTORY Social History Tobacco Use Smoking status: Former Current packs/day: 0.00 Average packs/day: 0.3 packs/day for 2.0 years (0.5 ttl pk-yrs) Types: Cigarettes Start date: 1965 Quit date: 1967 Years since quittin.5 Smokeless tobacco: Never Vaping Use Vaping status: Never Used Substance Use Topics Alcohol use: Not Currently Alcohol/week: 1.0 standard drink of alcohol Types: 1 Glasses of Wine (5oz) per week Comment: red wine 2-3 times a week- occasional Drug use: No MEDICATIONS: furosemide (LASIX) 40 mg tablet Take 1 tablet by mouth two times a day. dapagliflozin propanediol (FARXIGA) 10 mg tablet Take 1 tablet by mouth once daily. ferrous sulfate (IRON) 325 mg (65 mg iron) tablet Take 1 tablet by mouth once daily. pantoprazole DR (PROTONIX) 40 mg tablet Take 1 tablet by mouth two times a day. psyllium (METAMUCIL) 3.4 gram packet Take 1 packet by mouth two times a day. aspirin 81 mg chewable tablet Take 1 tablet by mouth once daily. atorvastatin (LIPITOR) 40 mg tablet Take 1 tablet by mouth once daily. clopidogrel (PLAVIX) 75 mg tablet Take 1 tablet by mouth once daily. spironolactone (ALDACTONE) 25 mg tablet Take 12.5 mg by mouth two times a day. metoprolol succinate ER (TOPROL XL) 50 mg 24 hr tablet Take 1 tablet by mouth two times a day. potassium chloride (K-TAB) 10 mEq tablet Take 1 tablet by mouth once daily. Blood Pressure Monitor (BLOOD PRESSURE KIT) 1 Each once daily. acetaminophen (TYLENOL) 500 mg tablet Take 1-2 tablets by mouth every 6 hours as needed. blood sugar diagnostic (BLOOD GLUCOSE TEST) test strip Test blood sugar(s) 2 times daily. Dx: Type 2 DM - Controlled E11.9 Insulin: No ALLERGIES: ALLERGIES Allergen Reactions Protamine Anaphylaxis Had acute drop in blood pressure and end tidal Co2 shortly after administration during watchman procedure on 01/12/22, treated with 60 mcg epinephrine and 10 mg dexamethasone with good response. Propofol Other: See Comments Hypotension PHYSICAL EXAM: BP 154/75 (BP Site: Left Arm, BP Position: Sitting, BP Cuff Size: Regular Adult) Pulse 77 SpO2 100% Gen- no distress Ext- bilateral lower extremity thigh edema Diagnostic tests reviewed for today's visit: Most recent labs Most recent imaging Mesenteric Duplex Technically difficult exam due to shadowing from calcified arteries, bowel gas and patient respiration. AORTA Aorta plaque noted without evidence of hemodynamically significant stenosis proximal vessel to the level of the renals Unable to clearly visualize mid/distal due to calcified plaque and bowel gas. MESENTERIC VESSELS Celiac: 70-99% stenosis. Plaque noted. Hepatic: Patent. Splenic: Patent. Superior mesenteric artery: 70-99% stenosis. Appears to be a stent at origin. Visualized in segments. Plaque noted. Inferior mesenteric artery: Unable to visualize. IMPRESSION: Ms. 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 PLAN and RECOMMENDATIONS: Reviewed duplex Ok to hold plavix if needed for endoscopy in upcoming months Recommend repeat duplex in 6 months, would continue DAPT until follow up duplex SIGNATURE: Sonal Silva DO PATIENT NAME: Berta Sanches DATE: December 20, 2024 TIME: 8:53 AM CNOV Observed: 12/20/2024 8:45 AM Status: COMPLETED Source: [facility] BERTA SANCHES ([id number]) 1945 F [place] Date Time Provider Department 12/20/24 8:45 AM SONAL SILVA During your visit today, we recorded the following information about you: Pulse Blood pressure Weight 77/minute 154/75 67.4 kg Sonal Silva, DO 12/20/2024 5:56 PM Signed [facility] [place] DEPARTMENT OF VASCULAR SURGERY OUTPATIENT VISIT DATE December 20, 2024 OUTPATIENT VISIT TYPE ESTABLISHED SERVICE DATE: 12/20/2024 SERVICE TIME: 8:53 AM PRIMARY CARE PHYSICIAN: Deysi Nicholson APRN.CNP HISTORY OF PRESENT ILLNESS: Ms. Sanches is a 79 year old female who presents today for a vascular surgery follow-up visit follow up on mesenteric duplex. She recently increased her lasix at the CHF clinic. She had a stent placed in [place] in September. She was recently admitted to [place] for anemia. She has noted increased swelling. PAST MEDICAL HISTORY Diagnosis Date Abnormal colonoscopy 11/26/2016 08/15/15 colonoscopy for anemia hgb 10.8 with bx ileocecal valve with ischemic bowel disease with focal mucosal ulceration Abnormal CT of the abdomen 07/13/2015 diffuse calcification aorta without dilitation, wall thcikening right colon suspicious for mass (ileocecal ulcer on colonoscopy), diverticulosis right colon Abnormal CXR chronic bilateral interstitial markings, moderate cardiomegaly Atrial fibrillation (HCC) Pedro aneurysm of anterior communicating artery ([facility]) Dr. Aaron [facility] Bilateral carotid artery stenosis 11/26/2016 05/27/16 moderate 50-69% stenosis right and left Bilateral pneumonia 07/20/2015 Cancer of cervix (HCC) Cervical cancer (HCC) 1973 Chest pain 06/01/2015 negative work up with nuclar stress CHF (congestive heart failure) ([facility]) Cholesteatoma of right ear surgical removal Chronic mastoiditis of left side Chronic renal failure, stage 3b (HCC) 04/15/2022 Diabetes (HCC) Diabetes (HCC) GERD (gastroesophageal reflux disease) H/O: GI bleed High blood pressure Hypercholesterolemia Mastoiditis of right side s/p mastoidectomy, complete opacitificationright tympanic cavity and mastoid cells on CT 06/01/16 Mitral valve regurgitation Pacemaker 10/21/[address] [employer] [address] TRELL VERNON [id number] pulse generator, his bundle lead, right atrial lead Peripheral arterial disease Rheumatic fever Steatosis, liver 03/26/2014 fatty liver on US. 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 Lua PACEMAKER 10/2019 PART. HYSTERECTOMY W/WO RMVL OVARIES/TUBES 1974 h/o cervical cancer ovaries remain PAST SURGICAL HISTORY OF 1996 Aortic valve repair, Dr. Apodaca PAST SURGICAL HISTORY OF 2001 [address] Beltrán, [facility] PAST SURGICAL HISTORY OF 2015 clipping and coil for brain aneurysm SOCIAL HISTORY Social History Tobacco Use Smoking status: Former Current packs/day: 0.00 Average packs/day: 0.3 packs/day for 2.0 years (0.5 ttl pk-yrs) Types: Cigarettes Start date: 1965 Quit date: 1967 Years since quittin.5 Smokeless tobacco: Never Vaping Use Vaping status: Never Used Substance Use Topics Alcohol use: Not Currently Alcohol/week: 1.0 standard drink of alcohol Types: 1 Glasses of Wine (5oz) per week Comment: red wine 2-3 times a week- occasional Drug use: No MEDICATIONS: furosemide (LASIX) 40 mg tablet Take 1 tablet by mouth two times a day. dapagliflozin propanediol (FARXIGA) 10 mg tablet Take 1 tablet by mouth once daily. ferrous sulfate (IRON) 325 mg (65 mg iron) tablet Take 1 tablet by mouth once daily. pantoprazole DR (PROTONIX) 40 mg tablet Take 1 tablet by mouth two times a day. psyllium (METAMUCIL) 3.4 gram packet Take 1 packet by mouth two times a day. aspirin 81 mg chewable tablet Take 1 tablet by mouth once daily. atorvastatin (LIPITOR) 40 mg tablet Take 1 tablet by mouth once daily. clopidogrel (PLAVIX) 75 mg tablet Take 1 tablet by mouth once daily. spironolactone (ALDACTONE) 25 mg tablet Take 12.5 mg by mouth two times a day. metoprolol succinate ER (TOPROL XL) 50 mg 24 hr tablet Take 1 tablet by mouth two times a day. potassium chloride (K-TAB) 10 mEq tablet Take 1 tablet by mouth once daily. Blood Pressure Monitor (BLOOD PRESSURE KIT) 1 Each once daily. acetaminophen (TYLENOL) 500 mg tablet Take 1-2 tablets by mouth every 6 hours as needed. blood sugar diagnostic (BLOOD GLUCOSE TEST) test strip Test blood sugar(s) 2 times daily. Dx: Type 2 DM - Controlled E11.9 Insulin: No ALLERGIES: ALLERGIES Allergen Reactions Protamine Anaphylaxis Had acute drop in blood pressure and end tidal Co2 shortly after administration during watchman procedure on 01/12/22, treated with 60 mcg epinephrine and 10 mg dexamethasone with good response. Propofol Other: See Comments Hypotension PHYSICAL EXAM: BP 154/75 (BP Site: Left Arm, BP Position: Sitting, BP Cuff Size: Regular Adult) Pulse 77 SpO2 100% Gen- no distress Ext- bilateral lower extremity thigh edema Diagnostic tests reviewed for today's visit: Most recent labs Most recent imaging Mesenteric Duplex Technically difficult exam due to shadowing from calcified arteries, bowel gas and patient respiration. AORTA Aorta plaque noted without evidence of hemodynamically significant stenosis proximal vessel to the level of the renals Unable to clearly visualize mid/distal due to calcified plaque and bowel gas. MESENTERIC VESSELS Celiac: 70-99% stenosis. Plaque noted. Hepatic: Patent. Splenic: Patent. Superior mesenteric artery: 70-99% stenosis. Appears to be a stent at origin. Visualized in segments. Plaque noted. Inferior mesenteric artery: Unable to visualize. IMPRESSION: Ms. 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 PLAN and RECOMMENDATIONS: Reviewed duplex Ok to hold plavix if needed for endoscopy in upcoming months Recommend repeat duplex in 6 months, would continue DAPT until follow up duplex SIGNATURE: Sonal Silva DO PATIENT NAME: Berta Sanches DATE: December 20, 2024 TIME: 8:53 AM Referring Provider: SONAL SILVA [[id number]] Allergies As of Date: 12/20/2024 Noted Allergy Reaction PROTAMINE 01/12/2022 10 - Anaphylaxis Comments: Had acute drop in blood pressure and end tidal Co2 shortly after administration during watchman procedure on 01/12/22, treated with 60 mcg epinephrine and 10 mg dexamethasone with good response. 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 - dapagliflozin propanediol (FARXIGA) 10 mg tablet Take 1 tablet by mouth once daily. - ferrous sulfate (IRON) 325 mg (65 mg iron) tablet Take 1 tablet by mouth once daily. - pantoprazole DR (PROTONIX) 40 mg tablet Take 1 tablet by mouth two times a day. - psyllium (METAMUCIL) 3.4 gram packet Take 1 packet by mouth two times a day. - aspirin 81 mg chewable tablet Take 1 tablet by mouth once daily. - atorvastatin (LIPITOR) 40 mg tablet Take 1 tablet by mouth once daily. - clopidogrel (PLAVIX) 75 mg tablet Take 1 tablet by mouth once daily. - spironolactone (ALDACTONE) 25 mg tablet Take 12.5 mg by mouth two times a day. - metoprolol succinate ER (TOPROL XL) 50 mg 24 hr tablet Take 1 tablet by mouth two times a day. - potassium chloride (K-TAB) 10 mEq tablet Take 1 tablet by mouth once daily. - Blood Pressure Monitor (BLOOD PRESSURE KIT) 1 Each once daily. - acetaminophen (TYLENOL) 500 mg tablet Take 1-2 tablets by mouth every 6 hours as needed. - blood sugar diagnostic (BLOOD GLUCOSE TEST) test strip Test blood sugar(s) 2 times daily. Dx: Type 2 DM - Controlled E11.9 Insulin: No Problem List As Of Date 12/20/2024 Noted Resolved History of prosthetic aortic valve replacement *10/10/2013 Aortic prosthetic valve regurgitation [T82.897A]10/10/2013 Paroxysmal atrial fibrillation (HCC) [I48.0] 10/10/2013 04/11/2023 HTN (hypertension) [I10] 10/10/2013 Hyperlipidemia with target LDL less than 70 [E7*11/20/2013 Type 2 diabetes mellitus without complication, *11/20/2013 09/12/2021 GERD (gastroesophageal reflux disease) [K21.9] 11/20/2013 Chronic anticoagulation [Z79.01] 11/20/2013 Fatigue [R53.83] 11/20/2013 SOB (shortness of breath) [R06.02] 11/20/2013 11/12/2023 H/O rheumatic heart disease [Z86.79] 11/20/2013 SUMMARY [V999.95] 12/09/2013 12/22/2018 Carotid artery disease (HCC) [I77.9] 12/09/2013 09/12/2021 Routine health maintenance [Z00.00] 01/08/2014 09/12/2021 Basal cell carcinoma [C44.91] 01/08/2014 Left shoulder pain [M25.512] 02/26/2014 Abdominal pain [R10.9] 02/26/2014 03/21/2022 Intracranial aneurysm [I67.1] 08/30/2015 10/05/2022 prison current use of antiarrhythmic medical*10/20/2016 09/12/2021 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] 11/19/2016 12/22/2018 Bilateral carotid artery stenosis [I65.23] 11/26/2016 Osteopenia of left lower leg [M85.862] 11/26/2016 Mastoiditis of right side [H70.91] 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] Personal history of colonic polyps [Z86.0100] 01/06/2017 Aortic stenosis [I35.0] 01/06/2017 12/22/2018 History of ischemic colitis [Z87.19] 01/06/2017 Adenomatous polyp of descending colon [D12.4] 01/06/2017 Skin cancer [C44.90] 01/06/2017 PAD (peripheral artery disease) (HCC) [I73.9] 01/06/2017 Pedro aneurysm of anterior communicating artery* Stage 3 chronic renal impairment associated wit*03/11/2017 Other chest pain [R07.89] 03/27/2019 09/19/2020 History of pulmonary embolism [Z86.711] 03/27/2019 Ascending aorta dilatation (HCC) [I77.810] 03/27/2019 Chronic bilateral pleural effusions [J90] 03/27/2019 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] 06/15/2019 Right renal mass [N28.89] 06/16/2019 Diverticulitis of large intestine with perforat*06/16/2019 09/12/2021 Diverticulitis large intestine w/o perforation *07/18/2019 Renal cell carcinoma, right (HCC) [C64.1] 10/17/2019 Iron deficiency anemia [D50.9] 10/24/2019 Anemia due to GI blood loss [D50.0] 10/24/2019 03/22/2022 Renal cell carcinoma (HCC) [C64.9] 10/24/2019 09/12/2021 Hypomagnesemia [E83.42] 10/26/2019 Gastrointestinal hemorrhage associated with acu*02/15/2020 Esophageal stenosis [K22.2] 10/28/2019 Dilated cardiomyopathy (HCC) [I42.0] 03/22/2020 Acute on chronic combined systolic and diastoli*09/19/2020 11/12/2023 SSS (sick sinus syndrome) (HCC) [I49.5] 10/21/2020 Encounter for support and coordination of trans*02/15/2021 09/12/2021 Duodenal ulcer [K26.9] 05/20/2021 Type 2 diabetes mellitus with diabetic peripher*09/12/2021 Atrial fibrillation (HCC) [I48.91] 01/12/2022 04/11/2023 Melena [K92.1] 02/22/2022 02/24/2022 Acute kidney injury (HCC) [N17.9] 02/22/2022 02/24/2022 Acute on chronic systolic heart failure (HCC) [*03/19/2022 03/22/2022 Longstanding persistent atrial fibrillation (HC*03/20/2022 S/P placement of cardiac pacemaker [Z95.0] 03/20/2022 CKD (chronic kidney disease) [N18.9] 03/21/2022 Platelet inhibition due to Plavix [Z79.02] 03/21/2022 Diverticulosis [K57.90] 03/21/2022 Lung nodule, solitary [R91.1] 03/22/2022 Red blood cell antibody positive [R76.8] 03/23/2022 Iron 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 *04/07/2022 Iron malabsorption [K90.9] 04/07/2022 Chronic renal failure, stage 3b (HCC) [N18.32] 04/15/2022 Spondylolisthesis at L4-L5 level [M43.16] 07/07/2022 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 Acute on chronic diastolic congestive heart karina*11/09/2023 Acute on chronic diastolic CHF (congestive hear*12/10/2024 Disposition: Return in about 6 months (around 06/21/2025) for testing with follow up. Follow-up and Disposition History for Encounter Date Provider Department Center 12/20/2024 [id number]-PHFAHSONAL SILVA [facility] Encounter Status:Closed by SONAL SILVA on 12/20/24 MESENTERIC ARTERY CMPLT [facility] Observed: 12/20/2024 7:55 AM Status: F Source: [facility] Non-Invasive Vascular [facility] [place] [facility] Renal or Mesenteric Duplex Bilateral/Complete Date of service/time: 12/20/2024 7:55:17 AM Name: MRS. BERTA SANCHES Date of : 1945 Age: 79 years Gender: F Clinical Indication Mesenteric artery stenosis. Superior mesenteric artery stent 09/2024 outside hospital. TECHNIQUE -------- A visceral duplex ultrasound examination was performed, including grayscale imaging and color Doppler and spectral Doppler examination of the below mentioned arteries and veins. FINDINGS -------- Aorta proximal PSV: 23 cm/s. EDV: 7 cm/s. Aorta at renals PSV: 29 cm/s. EDV: 7 cm/s. Celiac origin PSV: 407 cm/s. EDV: 52 cm/s. Celiac proximal PSV: 465 cm/s. EDV: 59 cm/s. Celiac mid PSV: 171 cm/s. EDV: 19 cm/s. Celiac distal PSV: 223 cm/s. EDV: 52 cm/s. Hepatic proximal PSV: 89 cm/s. EDV: 21 cm/s. Splenic proximal PSV: 101 cm/s. EDV: 19 cm/s. Superior mesenteric artery origin PSV: 188 cm/s. EDV: 0 cm/s. Stent noted. Superior mesenteric artery proximal PSV: 340 cm/s. EDV: 15 cm/s. Superior mesenteric artery mid PSV: 217 cm/s. EDV: 0 cm/s. IMPRESSION Technically difficult exam due to shadowing from calcified arteries, bowel gas and patient respiration. AORTA Aorta plaque noted without evidence of hemodynamically significant stenosis proximal vessel to the level of the renals Unable to clearly visualize mid/distal due to calcified plaque and bowel gas. MESENTERIC VESSELS Celiac: 70-99% stenosis. Plaque noted. Hepatic: Patent. Splenic: Patent. Superior mesenteric artery: 70-99% stenosis. Appears to be a stent at origin. Visualized in segments. Plaque noted. Inferior mesenteric artery: Unable to visualize. Technologist: Chantell Ferrari [facility]T [facility] Ordering physician: SONAL SILVA Interpreting physician: Terrance Oseguera MD, BIJAN Final CC [employer] [facility] Image : [id number] See Link below for Image PROGRESS Observed: 12/19/2024 11:43 AM Status: COMPLETED Source: [facility] HNO ID: [id number] Author: GWEN VALENTINE RN Service: ? Author Type: Registered Nurse Type: Progress Notes Filed: 12/19/2024 11:45 Note Text: Pt seen in the outpatient CHF clinic. Lasix 40 mg IV ordered. IV started to right AC with 22g angiocath. Good blood return, no redness, no swelling. Lasix given and flushed per protocol. IV D/Cd and pressure held x 5 minutes. Dry dressing and coband applied. No bleeding or swelling noted. Pt tolerated well. PROGRESS Observed: 12/19/2024 11:00 AM Status: COMPLETED Source: [facility] HNO ID: [id number] Author: ALBIN GU APRN.CNP Service: ? Author Type: Nurse Practitioner Type: Progress Notes Filed: 12/19/2024 11:45 Note Text: Heart and Vascular [facility] Heart Failure Clinic OUTPATIENT VISIT DATE December 18, 2024 OUTPATIENT VISIT TYPE ESTABLISHED PRIMARY CARE PHYSICIAN: Deysi Nicholson APRN.CNP CHIEF COMPLAINT: No chief complaint on file. HISTORY OF PRESENT ILLNESS: Berta Sanches is a 79 year old female who presents today for a follow-up visit in the Heart Failure Clinic. The patient was last seen in office 11/03. The following changes were made at that time: 20 mg IV lasix. Furthermore, suggested ER evaluation due to kidney function and sodium level however patient and did not wish to proceed.. Past medical history is significant for hypertension, hyperlipidemia, valvular heart disease s/p aortic valve replacement, history of brain aneurysm s/p coiling, SSS s/p pacemaker 10/2020, A-fib, s/p Watchman 2021, history of rectal bleeding, diabetes mellitus. Previous hospital admission was from 10/02 to 10/11 for abdominal pain and hematemesis. She is s/p left groin US guided femoral access mesenteric angiogram, angioplasty of SMA, 8 shockwave SMA, stenting of SMA viabahn 7 x 59 mm, DCB SMA Mynx closure on 10/02/2024. She was found to have MONIQUE on 10/03. Nephrology consulted and started CRRT. This was however, stopped on 10/05. Cardiology was consulted for atrial fibrillation which she developed post operatively. She was placed on amio gtt in which she then converted. Due to fluid overload, she was diuresed with IV lasix BID. At time of discharge, she was started on aspirin, atorvastatin, clopidogrel and pantoprazole. She was taken off spironolactone, losartan, simvastatin. Patient called HF Clinic on 10/12 to discuss recent hospitalization. At that time, the patient stated her admission weight was 136 lbs and when she arrived home from the hospital her weight was 157 lbs. She denied shortness of breath. Reported feeling fluid overloaded and was worried about traveling home to [place] in a few days. Discussed with her taking lasix as it was prescribed. As her spironolactone was stopped, did advise patient restart this at 25 mg once a day for four days only. She was instructed to call office in a week to review symptoms. On 10/15, patient presented back to [facility] for gastrointestinal bleed. She had a colonoscopy on 10/17/24 which showed findings notable for large clot and ulceration noted at 45 cm, concerning for ischemia, biopsies were obtained. Did receive one unit PRBC. Nephrology was consulted. She was given 5 mg metolazone BID for 2 days and was started on bumex gtt. This was adjusted the following day to oral bumex 2 mg BID and 2.5 mg metolazone every other day. Nephrology suggested patient be discharged on bumex, jardiance, spironolactone and entresto. The patient wished to leave [facility] so she could return to [place]. Cardiology and Pulmonary agreed with discharge. Patient has had 3 hospitalizations and/or emergency room encounters in the last 12 months. Most recent hospitalization was from 12/10 to 12/12 for heart failure. She was treated with intravenous lasix. Discharged on increased dose of torsemide. Started on farxiga as well. Iron deficiency anemia noted and received intravenous iron. Follow up with GI and future EGD. Discharged on oral iron. Patient to discuss stopping plavix with general surgery. Increase in PPI to BID to prevent GI bleed. Hospital admission weight 145 lbs Hospital discharge weight 144 lbs Was seen by cardiology on 11/06. She was taken off lasix and started on torsemide twice a day as cardiology suggested worsening right sided heart failure due to pulmonary hypertension. Her losartan was also held. On 11/14, the patient notified cardiology office of approx 10 lb weight gain. It was later reported the patient had not been taking her spironolactone. She was then instructed to increase spironolactone to BID and follow up in office for repeat labs on 11/20. Repeat echo in 6 months suggested and follow up in office in one month. Today, the patient reports not feeling well. States her thighs are very swollen. Presents to appt with . The patient reports significant swelling in her upper legs, describing them as "very swollen" and "very warm." She notes that this swelling has been present since her recent hospital discharge and fluctuates, sometimes causing her upper legs to feel "real loose." She also experiences numbness in her hands and feet. She denies any chest pain, chest heaviness, dizziness, or lightheadedness. She experiences dyspnea both at rest and with minimal exertion, such as walking from the car to the clinic. She also reports significant fatigue, which she attributes to the swelling in her upper legs restricting her ability to walk. She has been monitoring her sodium intake closely. She was recently prescribed torsemide but experienced adverse effects, including extreme pruritus, swelling of her feet and toes, and a very dry mouth. She reports that torsemide was less effective than Lasix in managing her symptoms. Consequently, she resumed taking Lasix 40 mg in the morning and an additional 40 mg in the afternoon if her weight was elevated. She made this change around Wednesday or Wednesday. She was previously on amiodarone for atrial fibrillation but is not currently taking it. She is scheduled for an ultrasound at the vascular center tomorrow and has a follow-up appointment with Dr. Arriaga on January 01. She reports difficulty sleeping and inquires about the use of sleep aids. She has tried melatonin in the past but not recently. She denies any abdominal pain, dysuria, or urinary frequency. She is currently taking spironolactone, half a tablet twice daily, and potassium supplements. She has been taking the potassium for a long time and reports that her potassium levels were normal during her recent hospitalization. She also takes Farxiga. Went back to lasix 40 mg the morning and if her weight was increased she would take additional lasix in the afternoon. Believes she started lasix and stopped torsemide last Wednesday. Has only been taking 1/2 tablet spironolactone twice a day since her last discharge. Itchiness is improving since stopping the torsemide. IMPRESSION: NYHA Functional Class: II Stage: C heart failure GDMT: farxiga, lasix 40 mg BID restarted 12/19 (stopped torsemide 12/15), 12.5 mg BID spironolactone, metoprolol PLAN AND RECOMMENDATIONS: 1. Chronic diastolic congestive heart failure (HCC) - ICD9: 428.32, 428.0, ICD10: I50.32 (primary diagnosis) 1. Chronic diastolic congestive heart failure (HCC) (I50.32) Experiencing significant lower extremity edema and shortness of breath. Recent hospitalization involved IV Lasix, which was effective. Transitioned to torsemide post-discharge, but experienced adverse effects including pruritus, paresthesia, and xerostomia. Reverted to oral Lasix 40 mg BID with additional dose prn based on weight. Current weight stable at 144 lbs, similar to discharge weight. Noted persistent atrial fibrillation on recent device check, potentially contributing to fluid retention. - Administered 40 mg IV Lasix today. - Adjust oral Lasix to 60 mg BID for a few days, then reduce to 40 mg BID. - Continue spironolactone 0.5 tablet BID. - Monitor renal function closely. - Discuss potential referral to [facility] with Dr. Arriaga. -GDMT: lasix, metoprolol, losartan -will review labs once resulted -declining ER visit today see HPI -10/2024 echo EF 55-60% -follow up in HF Clinic 01/23 sooner if needed 2. Primary hypertension - ICD9: 401.9, ICD10: I10 -BP suboptimal during visit 144/54 mmHg -encourage DASH/low sodium diet -encourage exercise with rest breaks as needed -goal BP <130/80 mmHg -continue home BP monitoring 3-4 hours after morning meds 3. SSS (sick sinus syndrome) (HCC) - ICD9: 427.81, ICD10: I49.5 -s/p PPM 4. Longstanding persistent atrial fibrillation (HCC) - ICD9: 427.31, ICD10: I48.11 Persistent atrial fibrillation noted on recent device check, potentially contributing to fluid retention and dyspnea. Previously on amiodarone. -device check shows 100% AF burden from 10/2024 device check -CHADSVASc 5 (age, gender, HF, HTN)- s/p watchman -continue metoprolol for rate control -HR 60 bpm during office visit Follow up appointment with Dr. 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 Aaron [facility] Bilateral carotid artery stenosis 11/26/2016 05/27/16 moderate 50-69% stenosis right and left Bilateral pneumonia 07/20/2015 Cancer of cervix (HCC) Cervical cancer (HCC) 1973 Chest pain 06/01/2015 negative work up with nuclar stress CHF (congestive heart failure) (HCC) Cholesteatoma of right ear surgical removal Chronic mastoiditis of left side Chronic renal failure, stage 3b (HCC) 04/15/2022 Diabetes (HCC) Diabetes (HCC) GERD (gastroesophageal reflux disease) H/O: GI bleed High blood pressure Hypercholesterolemia Mastoiditis of right side s/p mastoidectomy, complete opacitificationright tympanic cavity and mastoid cells on CT 06/01/16 Mitral valve regurgitation Pacemaker 10/21/[address] TRELL VERNON [id number] pulse generator, his bundle lead, right atrial lead Peripheral arterial disease Rheumatic fever Steatosis, liver 03/26/2014 fatty liver on US. 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 Lua PACEMAKER 10/2019 PART. HYSTERECTOMY W/WO RMVL OVARIES/TUBES 1973 h/o cervical cancer ovaries remain PAST SURGICAL HISTORY OF 1996 Aortic valve repair, Dr. Apodaca PAST SURGICAL HISTORY OF 2001 [address] Beltrán, [facility] PAST SURGICAL HISTORY OF 2015 clipping and coil for brain aneurysm Social History Tobacco Use Smoking status: Former Current packs/day: 0.00 Average packs/day: 0.3 packs/day for 2.0 years (0.5 ttl pk-yrs) Types: Cigarettes Start date: 1965 Quit date: 1967 Years since quittin.4 Smokeless tobacco: Never Vaping Use Vaping status: Never Used Substance Use Topics Alcohol use: Not Currently Alcohol/week: 1.0 standard drink of alcohol Types: 1 Glasses of Wine (5oz) per week Comment: red wine 2-3 times a week- occasional Drug use: No Family History Problem Relation Age of Onset other (Heart Problems) Mother other (myocardial infarction) Mother other (cardiovascular disease) Mother other (Heart Attack) Father other (cardiovascular disease) Father Diabetes Maternal Grandmother ALLERGIES Allergen Reactions Protamine Anaphylaxis Had acute drop in blood pressure and end tidal Co2 shortly after administration during watchman procedure on 01/12/22, treated with 60 mcg epinephrine and 10 mg dexamethasone with good response. Propofol Other: See Comments Hypotension CURRENT MEDICATIONS: Current Outpatient Medications Medication Sig Dispense Refill dapagliflozin propanediol (FARXIGA) 10 mg tablet Take 1 tablet by mouth once daily. 90 tablet 0 ferrous sulfate (IRON) 325 mg (65 mg iron) tablet Take 1 tablet by mouth once daily. [address] (PROTONIX) 40 mg tablet Take 1 tablet by mouth two times a day. 180 tablet 0 psyllium (METAMUCIL) 3.4 gram packet Take 1 packet by mouth two times a day. 180 packet 0 torsemide (DEMADEX) 20 mg tablet Take 2 tablets by mouth two times a day. 360 tablet 0 aspirin 81 mg chewable tablet Take 1 tablet by mouth once daily. 90 tablet 3 atorvastatin (LIPITOR) 40 mg tablet Take 1 tablet by mouth once daily. 90 tablet 3 clopidogrel (PLAVIX) 75 mg tablet Take 1 tablet by mouth once daily. 90 tablet 3 spironolactone (ALDACTONE) 25 mg tablet Take 1 tablet by mouth two times a day. 180 tablet metoprolol succinate ER (TOPROL XL) 50 mg 24 hr tablet Take 1 tablet by mouth two times a day. 180 tablet 3 potassium chloride (K-TAB) 10 mEq tablet Take 1 tablet by mouth once daily. 30 tablet 3 Blood Pressure Monitor (BLOOD PRESSURE KIT) 1 Each once daily. 1 Each 0 acetaminophen (TYLENOL) 500 mg tablet Take 1-2 tablets by mouth every 6 hours as needed. blood sugar diagnostic (BLOOD GLUCOSE TEST) test strip Test blood sugar(s) 2 times daily. Dx: Type 2 DM - Controlled E11.9 Insulin: No 50 Strip 11 No current facility-administered medications for this visit. REVIEW OF SYSTEMS: GENERAL: Positive for:Sleep difficulties HEENT: Positive for:Glasses NECK: Negative for: Swelling, Pain, Stiffness RESPIRATORY: Negative for: Cough, Blood in Sputum, Shortness of breath, Wheezing, Apnea GASTROINTESTINAL: Negative for: Trouble swallowing, Heartburn, Change in bowel habits, Blood in stool, Dark black stools MUSCULOSKELETAL: Negtive for: Muscle or joint pain, stiffness, Joint swelling NEUROLOGIC/PSYCHIATRIC: Negative for: +Weakness, Paralysis, Numbness, Tingling, Tremor, Nervousness or anxiety, Depressed mood, Memory loss SKIN: Negative for: Rash, Itching HEMATOLOGICAL/LYMPHATIC: Positive for: Easy bruising and Easy bleeding ENDOCRINE: Negative for: Heat or Cold Intolerance, Excessive Sweating, Frequent Urination, Frequent Thirst PHYSICAL EXAMINATION: BP 144/54 Pulse 79 Wt 65.3 kg (144 lb) SpO2 99% BMI 26.34 kg/m? General: Normal exam, no distress, accompanied by family Skin: No clubbing, no cyanosis. Eyes: Extra ocular movements intact Neck: Neck veins are not distended Lungs: Chest clear to auscultation Heart: Rhythm: irregularly irregular, Rate: normal, no murmur Abdomen: Normal Extremities: edema: 1+ thighs; no edema to lower leg CARDIOVASCULAR MEDICINE TESTING: Latest Reference Range AND Units 12/12/24 05:20 Sodium 136 - 144 mmol/L 134 (L) Potassium 3.7 - 5.1 mmol/L 4.1 Chloride 98 - 107 mmol/L 96 (L) CO2 22 - 30 mmol/L 26 BUN 7 - 21 mg/dL 47 (H) Creatinine 0.58 - 0.96 mg/dL 1.69 (H) Glucose 74 - 99 mg/dL 170 (H) Calcium 8.5 - 10.2 mg/dL 8.8 Magnesium 1.7 - 2.3 mg/dL 2.0 Anion Gap 8 - 15 mmol/L 12 eGFR >=60 mL/min/1.73m? 31 (L) (L): Data is abnormally low (H): Data is abnormally high OUTSIDE ECHO 10/04/2024: Study Conclusions 1. Left ventricle: The cavity size is normal. Wall thickness was increased in a pattern of mild LVH. Left ventricular geometry shows evidence of eccentric hypertrophy, with increased ventricular mass and normal relative wall thickness. Systolic function was normal. The estimated ejection fraction was in the range of 55% to 60%, by visual assessment. Wall motion was normal; there were no regional wall motion abnormalities. 2. Aortic valve: There is a bioprosthetic valve. The valve leaflets are not well visualized. Transvalvular velocity is within the normal range. There is no stenosis. There is trivial paravalular regurgitation. There is no central regurgitation. The mean systolic gradient is 9.00mm Hg. The valve area by the velocity-time integral method is 1.5cm2. The valve area by the peak velocity method is 1.5cm2. 3. Mitral valve: The leaflets are mildly thickened and calcified. Mobility was normal. The valve area (LVOT continuity) is 2.1cm2. 4. Left atrium: The atrium is severely dilated. 5. Right ventricle: The cavity size is mildly dilated. Pacer wire or catheter noted in right ventricle. Systolic function is mildly reduced. Systolic pressure was increased. 6. Right atrium: The atrium is dilated. 7. Pulmonic valve: There is mild regurgitation. 8. Pulmonary arteries: Systolic pressure is moderately increased. The peak pressure during systole by Doppler is 54mm Hg. 9. Inferior vena cava: The vessel was dilated. The respirophasic diameter changes were blunted (< 50%), consistent with elevated central venous pressure. I have personally reviewed the images/study. I have reviewed and agree with or edited the Resident/Fellow impression and interpretation as noted. Federico Hammonds [id number] DEVICE CHECK 10/04/2024: Tachycardia: AF * Stored EGMs are consistent with or suggestive of Atrial Fibrillation * AT/AF Speed: 67.8% * Total number of events: 2774 Tachycardia: AF w/RVR * Stored EGMs listed as NSVT AND SVT are consistent with or suggestive of Atrial Fibrillation with Rapid Ventricular Response * AT/AF Speed: 67.8% * Total episodes: 9 * Longest episode: 28 SECS * Fastest episode:207 BPM Remote Device Evaluation [employer] [facility] FROM [facility] * Device type: DUAL LEAD PACEMAKER * Presenting Rhythm: AF/ VS * Battery Status: Battery is at OK, 9.83 yrs . * Atrial Arrhythmias: There have been 12 atrial detections. Anticoagulants listed: _LAAC____ * Ventricular Arrhythmias: There have been __0 TRUE_ ventricular detections. * Lead Measurements: Capture thresholds, sensing, and lead impedances are appropriate. * Other Diagnostics: AP 64.4 HOUSING COORDINATOR 9.3% Tachycardia: AF * Stored EGMs are consistent with or suggestive of Atrial Fibrillation * AT/AF Speed: 8.2% (THIS PERCENT IS INACCCURATE,LIKELY CLOSER TO 100% DUE TO UNDERSENSING.) * Total number of events: 12 Atrial Lead Undersensing * Atrial lead signal amplitude suboptimal * Stability of the signal over time needs to be monitored * Measured value: 0.375mV * Programmed sensitivity settin.3mV I have personally reviewed the Laboratory Testing and Echocardiogram. COUNSELING: We discussed the following non-pharmacological measures during this visit: Smoking and alcohol abstinence/cessation, if applicable Dietary and medication compliance Monitoring daily weights and blood pressures Exercise regimen When to call our office Heart Failure Education Booklet: Previously given. Discussed red flags and when to call MD/ATTENDANT ARCADE or go to ED. Medications reconciled at end of visit: yes I spent 40 minutes in this visit, with more than 50% of the time devoted to patient counseling. Recording using [employer] software for draft documentation was discussed with patient/authorized vaccine customer representative. All questions were welcome and answered. Patient/authorized vaccine customer representative agreed to proceed. SIGNATURE: Albin Gu APRN.CNP PATIENT NAME: Berta Sanches DATE: December 19, 2024 TIME: 1099 CNOV Observed: 12/19/2024 11:00 AM Status: COMPLETED Source: [facility] BERTA SANCHES ([id number]) 1945 F [facility] Date Time Provider Department 12/19/24 11:00 AM ALBIN GU [facility] During your visit today, we recorded the following information about you: Pulse Blood pressure Weight 79/minute 157/54 65.3 kg Albin Gu APRN.CNP 12/19/2024 11:41 AM Addendum 40 mg intravenous lasix given in the office today. Please take additional potassium tablet today. STARTING tomorrow, please take 60 mg lasix in the morning and 60 mg lasix in the evening. This would be a 40 mg and a 20 mg tablet lasix two times a day. REPEAT this on and Wednesday. On Wednesday, and Wednesday please take additional potassium tablet . On Wednesday, go back down to 40 mg lasix twice a day. Resume your regular potassium tablet once a day as well. Call office on Wednesday to report weight and symptoms. I will reach out to cardiology to update on plan of care. You can try Magnesium Glycinate to help you sleep. This is over the counter. *Labs to be drawn in one week. 2. Weigh yourself daily. Call me if your weight increases by 3-4 pounds in a 1-4 day period of time. 3. Continue low salt (2000 mg per day) diet. 4. Be as active as you are able. If you get tired, just stop and rest for a while. 5. Come back and see me on WednesdayJanuary 23 at 1000. If you have any question or concern, you can call me at [phone]. Albin Gu APRN.CNP 12/19/2024 11:45 AM Signed [facility] OUTPATIENT VISIT DATE December 18, 2024 OUTPATIENT VISIT TYPE ESTABLISHED PRIMARY CARE PHYSICIAN: Deysi Nicholson APRN.JASPREET CHIEF COMPLAINT: No chief complaint on file. HISTORY OF PRESENT ILLNESS: Berta Sanches is a 79 year old female who presents today for a follow-up visit in the Heart Failure Clinic. The patient was last seen in office 11/03. The following changes were made at that time: 20 mg IV lasix. Furthermore, suggested ER evaluation due to kidney function and sodium level however patient and did not wish to proceed.. Past medical history is significant for hypertension, hyperlipidemia, valvular heart disease s/p aortic valve replacement, history of brain aneurysm s/p coiling, SSS s/p pacemaker 10/2020, A-fib, s/p Watchman 2021, history of rectal bleeding, diabetes mellitus. Previous hospital admission was from 10/02 to 10/11 for abdominal pain and hematemesis. She is s/p left groin US guided femoral access mesenteric angiogram, angioplasty of SMA, 8 shockwave SMA, stenting of SMA viabahn 7 x 59 mm, DCB SMA Mynx closure on 10/02/2024. She was found to have MONIQUE on 10/03. Nephrology consulted and started CRRT. This was however, stopped on 10/05. Cardiology was consulted for atrial fibrillation which she developed post operatively. She was placed on amio gtt in which she then converted. Due to fluid overload, she was diuresed with IV lasix BID. At time of discharge, she was started on aspirin, atorvastatin, clopidogrel and pantoprazole. She was taken off spironolactone, losartan, simvastatin. Patient called HF Clinic on 10/12 to discuss recent hospitalization. At that time, the patient stated her admission weight was 136 lbs and when she arrived home from the hospital her weight was 157 lbs. She denied shortness of breath. Reported feeling fluid overloaded and was worried about traveling home to [place] in a few days. Discussed with her taking lasix as it was prescribed. As her spironolactone was stopped, did advise patient restart this at 25 mg once a day for four days only. She was instructed to call office in a week to review symptoms. On 10/15, patient presented back to [facility] for gastrointestinal bleed. She had a colonoscopy on 10/17/24 which showed findings notable for large clot and ulceration noted at 45 cm, concerning for ischemia, biopsies were obtained. Did receive one unit PRBC. Nephrology was consulted. She was given 5 mg metolazone BID for 2 days and was started on bumex gtt. This was adjusted the following day to oral bumex 2 mg BID and 2.5 mg metolazone every other day. Nephrology suggested patient be discharged on bumex, jardiance, spironolactone and entresto. The patient wished to leave [facility] so she could return to [place]. Cardiology and Pulmonary agreed with discharge. Patient has had 3 hospitalizations and/or emergency room encounters in the last 12 months. Most recent hospitalization was from 12/10 to 12/12 for heart failure. She was treated with intravenous lasix. Discharged on increased dose of torsemide. Started on farxiga as well. Iron deficiency anemia noted and received intravenous iron. Follow up with GI and future EGD. Discharged on oral iron. Patient to discuss stopping plavix with general surgery. Increase in PPI to BID to prevent GI bleed. Hospital admission weight 145 lbs Hospital discharge weight 144 lbs Was seen by cardiology on 11/06. She was taken off lasix and started on torsemide twice a day as cardiology suggested worsening right sided heart failure due to pulmonary hypertension. Her losartan was also held. On 11/14, the patient notified cardiology office of approx 10 lb weight gain. It was later reported the patient had not been taking her spironolactone. She was then instructed to increase spironolactone to BID and follow up in office for repeat labs on 11/20. Repeat echo in 6 months suggested and follow up in office in one month. Today, the patient reports not feeling well. States her thighs are very swollen. Presents to appt with . The patient reports significant swelling in her upper legs, describing them as "very swollen" and "very warm." She notes that this swelling has been present since her recent hospital discharge and fluctuates, sometimes causing her upper legs to feel "real loose." She also experiences numbness in her hands and feet. She denies any chest pain, chest heaviness, dizziness, or lightheadedness. She experiences dyspnea both at rest and with minimal exertion, such as walking from the car to the clinic. She also reports significant fatigue, which she attributes to the swelling in her upper legs restricting her ability to walk. She has been monitoring her sodium intake closely. She was recently prescribed torsemide but experienced adverse effects, including extreme pruritus, swelling of her feet and toes, and a very dry mouth. She reports that torsemide was less effective than Lasix in managing her symptoms. Consequently, she resumed taking Lasix 40 mg in the morning and an additional 40 mg in the afternoon if her weight was elevated. She made this change around Wednesday or Wednesday. She was previously on amiodarone for atrial fibrillation but is not currently taking it. She is scheduled for an ultrasound at the vascular center tomorrow and has a follow-up appointment with Dr. Arriaga on January 01. She reports difficulty sleeping and inquires about the use of sleep aids. She has tried melatonin in the past but not recently. She denies any abdominal pain, dysuria, or urinary frequency. She is currently taking spironolactone, half a tablet twice daily, and potassium supplements. She has been taking the potassium for a long time and reports that her potassium levels were normal during her recent hospitalization. She also takes Farxiga. Went back to lasix 40 mg the morning and if her weight was increased she would take additional lasix in the afternoon. Believes she started lasix and stopped torsemide last Wednesday. Has only been taking 1/2 tablet spironolactone twice a day since her last discharge. Itchiness is improving since stopping the torsemide. IMPRESSION: NYHA Functional Class: II Stage: C heart failure GDMT: farxiga, lasix 40 mg BID restarted 12/19 (stopped torsemide 12/15), 12.5 mg BID spironolactone, metoprolol PLAN AND RECOMMENDATIONS: 1. Chronic diastolic congestive heart failure (HCC) - ICD9: 428.32, 428.0, ICD10: I50.32 (primary diagnosis) 1. Chronic diastolic congestive heart failure (HCC) (I50.32) Experiencing significant lower extremity edema and shortness of breath. Recent hospitalization involved IV Lasix, which was effective. Transitioned to torsemide post-discharge, but experienced adverse effects including pruritus, paresthesia, and xerostomia. Reverted to oral Lasix 40 mg BID with additional dose prn based on weight. Current weight stable at 144 lbs, similar to discharge weight. Noted persistent atrial fibrillation on recent device check, potentially contributing to fluid retention. - Administered 40 mg IV Lasix today. - Adjust oral Lasix to 60 mg BID for a few days, then reduce to 40 mg BID. - Continue spironolactone 0.5 tablet BID. - Monitor renal function closely. - Discuss potential referral to [facility] with Dr. Arriaga. -GDMT: lasix, metoprolol, losartan -will review labs once resulted -declining ER visit today see HPI -10/2024 echo EF 55-60% -follow up in HF Clinic 01/23 sooner if needed 2. Primary hypertension - ICD9: 401.9, ICD10: I10 -BP suboptimal during visit 144/54 mmHg -encourage DASH/low sodium diet -encourage exercise with rest breaks as needed -goal BP <130/80 mmHg -continue home BP monitoring 3-4 hours after morning meds 3. SSS (sick sinus syndrome) (HCC) - ICD9: 427.81, ICD10: I49.5 -s/p PPM 4. Longstanding persistent atrial fibrillation (HCC) - ICD9: 427.31, ICD10: I48.11 Persistent atrial fibrillation noted on recent device check, potentially contributing to fluid retention and dyspnea. Previously on amiodarone. -device check shows 100% AF burden from 10/2024 device check -CHADSVASc 5 (age, gender, HF, HTN)- s/p watchman -continue metoprolol for rate control -HR 60 bpm during office visit Follow up appointment with Dr. 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 Lua PACEMAKER 10/2019 PART. HYSTERECTOMY W/WO RMVL OVARIES/TUBES 1974 h/o cervical cancer ovaries remain PAST SURGICAL HISTORY OF 1996 Aortic valve repair, Dr. Apodaca PAST SURGICAL HISTORY OF 2001 [address] Beltrán, [facility] PAST SURGICAL HISTORY OF 2015 clipping and coil for brain aneurysm Social History Tobacco Use Smoking status: Former Current packs/day: 0.00 Average packs/day: 0.3 packs/day for 2.0 years (0.5 ttl pk-yrs) Types: Cigarettes Start date: 1965 Quit date: 1967 Years since quittin.4 Smokeless tobacco: Never Vaping Use Vaping status: Never Used Substance Use Topics Alcohol use: Not Currently Alcohol/week: 1.0 standard drink of alcohol Types: 1 Glasses of Wine (5oz) per week Comment: red wine 2-3 times a week- occasional Drug use: No Family History Problem Relation Age of Onset other (Heart Problems) Mother other (myocardial infarction) Mother other (cardiovascular disease) Mother other (Heart Attack) Father other (cardiovascular disease) Father Diabetes Maternal Grandmother ALLERGIES Allergen Reactions Protamine Anaphylaxis Had acute drop in blood pressure and end tidal Co2 shortly after administration during watchman procedure on 01/12/22, treated with 60 mcg epinephrine and 10 mg dexamethasone with good response. Propofol Other: See Comments Hypotension CURRENT MEDICATIONS: Current Outpatient Medications Medication Sig Dispense Refill dapagliflozin propanediol (FARXIGA) 10 mg tablet Take 1 tablet by mouth once daily. 90 tablet 0 ferrous sulfate (IRON) 325 mg (65 mg iron) tablet Take 1 tablet by mouth once daily. [address] (PROTONIX) 40 mg tablet Take 1 tablet by mouth two times a day. 180 tablet 0 psyllium (METAMUCIL) 3.4 gram packet Take 1 packet by mouth two times a day. 180 packet 0 torsemide (DEMADEX) 20 mg tablet Take 2 tablets by mouth two times a day. 360 tablet 0 aspirin 81 mg chewable tablet Take 1 tablet by mouth once daily. 90 tablet 3 atorvastatin (LIPITOR) 40 mg tablet Take 1 tablet by mouth once daily. 90 tablet 3 clopidogrel (PLAVIX) 75 mg tablet Take 1 tablet by mouth once daily. 90 tablet 3 spironolactone (ALDACTONE) 25 mg tablet Take 1 tablet by mouth two times a day. 180 tablet metoprolol succinate ER (TOPROL XL) 50 mg 24 hr tablet Take 1 tablet by mouth two times a day. 180 tablet 3 potassium chloride (K-TAB) 10 mEq tablet Take 1 tablet by mouth once daily. 30 tablet 3 Blood Pressure Monitor (BLOOD PRESSURE KIT) 1 Each once daily. 1 Each 0 acetaminophen (TYLENOL) 500 mg tablet Take 1-2 tablets by mouth every 6 hours as needed. blood sugar diagnostic (BLOOD GLUCOSE TEST) test strip Test blood sugar(s) 2 times daily. Dx: Type 2 DM - Controlled E11.9 Insulin: No 50 Strip 11 No current facility-administered medications for this visit. REVIEW OF SYSTEMS: GENERAL: Positive for:Sleep difficulties HEENT: Positive for:Glasses NECK: Negative for: Swelling, Pain, Stiffness RESPIRATORY: Negative for: Cough, Blood in Sputum, Shortness of breath, Wheezing, Apnea GASTROINTESTINAL: Negative for: Trouble swallowing, Heartburn, Change in bowel habits, Blood in stool, Dark black stools MUSCULOSKELETAL: Negtive for: Muscle or joint pain, stiffness, Joint swelling NEUROLOGIC/PSYCHIATRIC: Negative for: +Weakness, Paralysis, Numbness, Tingling, Tremor, Nervousness or anxiety, Depressed mood, Memory loss SKIN: Negative for: Rash, Itching HEMATOLOGICAL/LYMPHATIC: Positive for: Easy bruising and Easy bleeding ENDOCRINE: Negative for: Heat or Cold Intolerance, Excessive Sweating, Frequent Urination, Frequent Thirst PHYSICAL EXAMINATION: BP 144/54 Pulse 79 Wt 65.3 kg (144 lb) SpO2 99% BMI 26.34 kg/m? General: Normal exam, no distress, accompanied by family Skin: No clubbing, no cyanosis. Eyes: Extra ocular movements intact Neck: Neck veins are not distended Lungs: Chest clear to auscultation Heart: Rhythm: irregularly irregular, Rate: normal, no murmur Abdomen: Normal Extremities: edema: 1+ thighs; no edema to lower leg CARDIOVASCULAR MEDICINE TESTING: Latest Reference Range AND Units 12/12/24 05:20 Sodium 136 - 144 mmol/L 134 (L) Potassium 3.7 - 5.1 mmol/L 4.1 Chloride 98 - 107 mmol/L 96 (L) CO2 22 - 30 mmol/L 26 BUN 7 - 21 mg/dL 47 (H) Creatinine 0.58 - 0.96 mg/dL 1.69 (H) Glucose 74 - 99 mg/dL 170 (H) Calcium 8.5 - 10.2 mg/dL 8.8 Magnesium 1.7 - 2.3 mg/dL 2.0 Anion Gap 8 - 15 mmol/L 12 eGFR >=60 mL/min/1.73m? 31 (L) (L): Data is abnormally low (H): Data is abnormally high OUTSIDE ECHO 10/04/2024: Study Conclusions 1. Left ventricle: The cavity size is normal. Wall thickness was increased in a pattern of mild LVH. Left ventricular geometry shows evidence of eccentric hypertrophy, with increased ventricular mass and normal relative wall thickness. Systolic function was normal. The estimated ejection fraction was in the range of 55% to 60%, by visual assessment. Wall motion was normal; there were no regional wall motion abnormalities. 2. Aortic valve: There is a bioprosthetic valve. The valve leaflets are not well visualized. Transvalvular velocity is within the normal range. There is no stenosis. There is trivial paravalular regurgitation. There is no central regurgitation. The mean systolic gradient is 9.00mm Hg. The valve area by the velocity-time integral method is 1.5cm2. The valve area by the peak velocity method is 1.5cm2. 3. Mitral valve: The leaflets are mildly thickened and calcified. Mobility was normal. The valve area (LVOT continuity) is 2.1cm2. 4. Left atrium: The atrium is severely dilated. 5. Right ventricle: The cavity size is mildly dilated. Pacer wire or catheter noted in right ventricle. Systolic function is mildly reduced. Systolic pressure was increased. 6. Right atrium: The atrium is dilated. 7. Pulmonic valve: There is mild regurgitation. 8. Pulmonary arteries: Systolic pressure is moderately increased. The peak pressure during systole by Doppler is 54mm Hg. 9. Inferior vena cava: The vessel was dilated. The respirophasic diameter changes were blunted (< 50%), consistent with elevated central venous pressure. I have personally reviewed the images/study. I have reviewed and agree with or edited the Resident/Fellow impression and interpretation as noted. Federico Hammonds [id number] DEVICE CHECK 10/04/2024: Tachycardia: AF * Stored EGMs are consistent with or suggestive of Atrial Fibrillation * AT/AF Speed: 67.8% * Total number of events: 2774 Tachycardia: AF w/RVR * Stored EGMs listed as NSVT AND SVT are consistent with or suggestive of Atrial Fibrillation with Rapid Ventricular Response * AT/AF Speed: 67.8% * Total episodes: 9 * Longest episode: 28 SECS * Fastest episode:207 BPM Remote Device Evaluation [employer] [facility] FROM [facility] * Device type: DUAL LEAD PACEMAKER * Presenting Rhythm: AF/ VS * Battery Status: Battery is at OK, 9.83 yrs . * Atrial Arrhythmias: There have been 12 atrial detections. Anticoagulants listed: _LAAC____ * Ventricular Arrhythmias: There have been __0 TRUE_ ventricular detections. * Lead Measurements: Capture thresholds, sensing, and lead impedances are appropriate. * Other Diagnostics: AP 64.4 HOUSING COORDINATOR 9.3% Tachycardia: AF * Stored EGMs are consistent with or suggestive of Atrial Fibrillation * AT/AF Speed: 8.2% (THIS PERCENT IS INACCCURATE,LIKELY CLOSER TO 100% DUE TO UNDERSENSING.) * Total number of events: 12 Atrial Lead Undersensing * Atrial lead signal amplitude suboptimal * Stability of the signal over time needs to be monitored * Measured value: 0.375mV * Programmed sensitivity settin.3mV I have personally reviewed the Laboratory Testing and Echocardiogram. COUNSELING: We discussed the following non-pharmacological measures during this visit: Smoking and alcohol abstinence/cessation, if applicable Dietary and medication compliance Monitoring daily weights and blood pressures Exercise regimen When to call our office Heart Failure Education Booklet: Previously given. Discussed red flags and when to call MD/ATTENDANT ARCADE or go to ED. Medications reconciled at end of visit: yes I spent 40 minutes in this visit, with more than 50% of the time devoted to patient counseling. Recording using [employer] software for draft documentation was discussed with patient/authorized vaccine customer representative. All questions were welcome and answered. Patient/authorized vaccine customer representative agreed to proceed. SIGNATURE: Albin Gu APRN.CNP PATIENT NAME: Berta Sanches DATE: December 19, 2024 TIME: 1100 Gwen Valentine RN 12/19/2024 11:45 AM Signed Pt seen in the outpatient CHF clinic. Lasix 40 mg IV ordered. IV started to right AC with 22g angiocath. Good blood return, no redness, no swelling. Lasix given and flushed per protocol. IV D/Cd and pressure held x 5 minutes. Dry dressing and coband applied. No bleeding or swelling noted. Pt tolerated well. Referring Provider: JUAN DIEGO BYRD [[id number]] Allergies As of Date: 12/19/2024 Noted Allergy Reaction PROTAMINE 01/12/2022 10 - Anaphylaxis Comments: Had acute drop in blood pressure and end tidal Co2 shortly after administration during watchman procedure on 01/12/22, treated with 60 mcg epinephrine and 10 mg dexamethasone with good response. PROPOFOL 04/07/2023 14 - Other: See Comments Comments: Hypotension Date Reviewed: 12/19/2024 Reviewed by: Gwen Valentine RN - Fully Assessed Primary Visit Diagnosis:Chronic diastolic congestive heart failure (HCC) [I50.32] Other Visit Diagnoses:Primary hypertension [I10] SSS (sick sinus syndrome) ([facility]) [I49.5] Longstanding persistent atrial fibrillation ([facility]) [I48.11] Order(s):[] furosemide 40 mg injection (LASIX)Disp: Rfl: BASIC METABOLIC PANEL [SQBMP] Order #: [id number] FUTURE furosemide (LASIX) 40 mg tabletTake 1 tablet by mouth two times a day.Disp: 180 tabletRfl: 0 Prescriptions as of 12/19/2024 - furosemide (LASIX) 40 mg tablet Take 1 tablet by mouth two times a day. - dapagliflozin propanediol (FARXIGA) 10 mg tablet Take 1 tablet by mouth once daily. - ferrous sulfate (IRON) 325 mg (65 mg iron) tablet Take 1 tablet by mouth once daily. - pantoprazole DR (PROTONIX) 40 mg tablet Take 1 tablet by mouth two times a day. - psyllium (METAMUCIL) 3.4 gram packet Take 1 packet by mouth two times a day. - aspirin 81 mg chewable tablet Take 1 tablet by mouth once daily. - atorvastatin (LIPITOR) 40 mg tablet Take 1 tablet by mouth once daily. - clopidogrel (PLAVIX) 75 mg tablet Take 1 tablet by mouth once daily. - spironolactone (ALDACTONE) 25 mg tablet Take 12.5 mg by mouth two times a day. - metoprolol succinate ER (TOPROL XL) 50 mg 24 hr tablet Take 1 tablet by mouth two times a day. - potassium chloride (K-TAB) 10 mEq tablet Take 1 tablet by mouth once daily. - Blood Pressure Monitor (BLOOD PRESSURE KIT) 1 Each once daily. - acetaminophen (TYLENOL) 500 mg tablet Take 1-2 tablets by mouth every 6 hours as needed. - blood sugar diagnostic (BLOOD GLUCOSE TEST) test strip Test blood sugar(s) 2 times daily. 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]10/10/2013 Paroxysmal atrial fibrillation (HCC) [I48.0] 10/10/2013 04/11/2023 HTN (hypertension) [I10] 10/10/2013 Hyperlipidemia with target LDL less than 70 [E7*11/20/2013 Type 2 diabetes mellitus without complication, *11/20/2013 09/12/2021 GERD (gastroesophageal reflux disease) [K21.9] 11/20/2013 Chronic anticoagulation [Z79.01] 11/20/2013 Fatigue [R53.83] 11/20/2013 SOB (shortness of breath) [R06.02] 11/20/2013 11/12/2023 H/O rheumatic heart disease [Z86.79] 11/20/2013 SUMMARY [V999.95] 12/09/2013 12/22/2018 Carotid artery disease (HCC) [I77.9] 12/09/2013 09/12/2021 Routine health maintenance [Z00.00] 01/08/2014 09/12/2021 Basal cell carcinoma [C44.91] 01/08/2014 Left shoulder pain [M25.512] 02/26/2014 Abdominal pain [R10.9] 02/26/2014 03/21/2022 Intracranial aneurysm [I67.1] 08/30/2015 10/05/2022 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 09/12/2021 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] 11/19/2016 12/22/2018 Bilateral carotid artery stenosis [I65.23] 11/26/2016 Osteopenia of left lower leg [M85.862] 11/26/2016 Mastoiditis of right side [H70.91] 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] Personal history of colonic polyps [Z86.0100] 01/06/2017 Aortic stenosis [I35.0] 01/06/2017 12/22/2018 History of ischemic colitis [Z87.19] 01/06/2017 Adenomatous polyp of descending colon [D12.4] 01/06/2017 Skin cancer [C44.90] 01/06/2017 PAD (peripheral artery disease) (HCC) [I73.9] 01/06/2017 Pedro aneurysm of anterior communicating artery* Stage 3 chronic renal impairment associated wit*03/11/2017 Other chest pain [R07.89] 03/27/2019 09/19/2020 History of pulmonary embolism [Z86.711] 03/27/2019 Ascending aorta dilatation (HCC) [I77.810] 03/27/2019 Chronic bilateral pleural effusions [J90] 03/27/2019 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] 06/15/2019 Right renal mass [N28.89] 06/16/2019 Diverticulitis of large intestine with perforat*06/16/2019 09/12/2021 Diverticulitis large intestine w/o perforation *07/18/2019 Renal cell carcinoma, right (HCC) [C64.1] 10/17/2019 Iron deficiency anemia [D50.9] 10/24/2019 Anemia due to GI blood loss [D50.0] 10/24/2019 03/22/2022 Renal cell carcinoma (HCC) [C64.9] 10/24/2019 09/12/2021 Hypomagnesemia [E83.42] 10/26/2019 Gastrointestinal hemorrhage associated with acu*02/15/2020 Esophageal stenosis [K22.2] 10/28/2019 Dilated cardiomyopathy (HCC) [I42.0] 03/22/2020 Acute on chronic combined systolic and diastoli*09/19/2020 11/12/2023 SSS (sick sinus syndrome) (HCC) [I49.5] 10/21/2020 Encounter for support and coordination of trans*02/15/2021 09/12/2021 Duodenal ulcer [K26.9] 05/20/2021 Type 2 diabetes mellitus with diabetic peripher*09/12/2021 Atrial fibrillation (HCC) [I48.91] 01/12/2022 04/11/2023 Melena [K92.1] 02/22/2022 02/24/2022 Acute kidney injury (HCC) [N17.9] 02/22/2022 02/24/2022 Acute on chronic systolic heart failure (HCC) [*03/19/2022 03/22/2022 Longstanding persistent atrial fibrillation (HC*03/20/2022 S/P placement of cardiac pacemaker [Z95.0] 03/20/2022 CKD (chronic kidney disease) [N18.9] 03/21/2022 Platelet inhibition due to Plavix [Z79.02] 03/21/2022 Diverticulosis [K57.90] 03/21/2022 Lung nodule, solitary [R91.1] 03/22/2022 Red blood cell antibody positive [R76.8] 03/23/2022 Iron 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 *04/07/2022 Iron malabsorption [K90.9] 04/07/2022 Chronic renal failure, stage 3b (HCC) [N18.32] 04/15/2022 Spondylolisthesis at L4-L5 level [M43.16] 07/07/2022 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 Acute on chronic diastolic congestive heart karina*11/09/2023 Acute on chronic diastolic CHF (congestive hear*12/10/2024 Other instructions from your clinician: 40 mg intravenous lasix given in the office today. Please take additional potassium tablet today. STARTING tomorrow, please take 60 mg lasix in the morning and 60 mg lasix in the evening. This would be a 40 mg and a 20 mg tablet lasix two times a day. REPEAT this on and Wednesday. On Wednesday, and Wednesday please take additional potassium tablet . On Wednesday, go back down to 40 mg lasix twice a day. Resume your regular potassium tablet once a day as well. Call office on Wednesday to report weight and symptoms. I will reach out to cardiology to update on plan of care. You can try Magnesium Glycinate to help you sleep. This is over the counter. *Labs to be drawn in one week. 2. Weigh yourself daily. Call me if your weight increases by 3-4 pounds in a 1-4 day period of time. 3. Continue low salt (2000 mg per day) diet. 4. Be as active as you are able. If you get tired, just stop and rest for a while. 5. Come back and see me on WednesdayJanuary 23 at 1000. If you have any question or concern, you can call me at [phone]. Prescriptions ordered this encounter Disp Refills Start End FUROSEMIDE 10 MG/ML INJ 12/19/2024 12/19/2024 Route: IV FUROSEMIDE 40 MG TABLET 180 * 0 12/19/2024 Class: Med Update Route: PO Sig: Take 1 tablet by mouth two times a day. Medications Discontinued During This Encounter Prescriptions - torsemide (DEMADEX) 20 mg tablet (Discontinued) Take 2 tablets by mouth two times a day. Encounter Status:Closed by ALBIN GU on 12/19/24 CNPN Observed: 12/13/2024 12:00 AM Status: COMPLETED Source: [facility] Telephone (PODCCP) BERTA SANCHES ([id number]) 1945 [facility] Date Time Provider Department 12/13/24 DEYSI NICHOLSON PODCCP During your visit today, we recorded the following information about you: Tal Gonzalez 12/13/2024 9:36 AM Signed Transitional Care Management (TCM) [facility] Monitoring Program Provider Action / FYI: N/A SUMMARY: Outreach type: INITIAL OUTREACH Discharge Network Status: In-Network Discharge Source of Patient: [facility] TCM Discharge Report Patient discharged from [place] on December 12. Admitted for Acute on chronic diastolic CHF (congestive heart failure) (HCC). Contact made with patient: No - next outreach attempt will be on next business day. Tal Betancourt December 13, 2024 9:35 AM Allergies As of Date: 12/13/2024 Noted Allergy Reaction PROTAMINE 01/12/2022 10 - Anaphylaxis Comments: Had acute drop in blood pressure and end tidal Co2 shortly after administration during watchman procedure on 01/12/22, treated with 60 mcg epinephrine and 10 mg dexamethasone with good response. PROPOFOL 04/07/2023 14 - Other: See Comments Comments: Hypotension Date Reviewed: 12/12/2024 Reviewed by: Lizeth Jordan RN - Fully Assessed Reason for Visit: Transition Of Care [4074] Prescriptions as of 12/13/2024 - dapagliflozin propanediol (FARXIGA) 10 mg tablet Take 1 tablet by mouth once daily. - ferrous sulfate (IRON) 325 mg (65 mg iron) tablet Take 1 tablet by mouth once daily. - pantoprazole DR (PROTONIX) 40 mg tablet Take 1 tablet by mouth two times a day. - psyllium (METAMUCIL) 3.4 gram packet Take 1 packet by mouth two times a day. - torsemide (DEMADEX) 20 mg tablet Take 2 tablets by mouth two times a day. - aspirin 81 mg chewable tablet Take 1 tablet by mouth once daily. - atorvastatin (LIPITOR) 40 mg tablet Take 1 tablet by mouth once daily. - clopidogrel (PLAVIX) 75 mg tablet Take 1 tablet by mouth once daily. - spironolactone (ALDACTONE) 25 mg tablet Take 1 tablet by mouth two times a day. - metoprolol succinate ER (TOPROL XL) 50 mg 24 hr tablet Take 1 tablet by mouth two times a day. - potassium chloride (K-TAB) 10 mEq tablet Take 1 tablet by mouth once daily. - Blood Pressure Monitor (BLOOD PRESSURE KIT) 1 Each once daily. - acetaminophen (TYLENOL) 500 mg tablet Take 1-2 tablets by mouth every 6 hours as needed. - blood sugar diagnostic (BLOOD GLUCOSE TEST) test strip Test blood sugar(s) 2 times daily. Dx: Type 2 DM - Controlled E11.9 Insulin: No Problem List As Of Date 12/13/2024 Noted Resolved History of prosthetic aortic valve replacement *10/10/2013 Aortic prosthetic valve regurgitation [T82.897A]10/10/2013 Paroxysmal atrial fibrillation (HCC) [I48.0] 10/10/2013 04/11/2023 HTN (hypertension) [I10] 10/10/2013 Hyperlipidemia with target LDL less than 70 [E7*11/20/2013 Type 2 diabetes mellitus without complication, *11/20/2013 09/12/2021 GERD (gastroesophageal reflux disease) [K21.9] 11/20/2013 Chronic anticoagulation [Z79.01] 11/20/2013 Fatigue [R53.83] 11/20/2013 SOB (shortness of breath) [R06.02] 11/20/2013 11/12/2023 H/O rheumatic heart disease [Z86.79] 11/20/2013 SUMMARY [V999.95] 12/09/2013 12/22/2018 Carotid artery disease (HCC) [I77.9] 12/09/2013 09/12/2021 Routine health maintenance [Z00.00] 01/08/2014 09/12/2021 Basal cell carcinoma [C44.91] 01/08/2014 Left shoulder pain [M25.512] 02/26/2014 Abdominal pain [R10.9] 02/26/2014 03/21/2022 Intracranial aneurysm [I67.1] 08/30/2015 10/05/2022 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 09/12/2021 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] 11/19/2016 12/22/2018 Bilateral carotid artery stenosis [I65.23] 11/26/2016 Osteopenia of left lower leg [M85.862] 11/26/2016 Mastoiditis of right side [H70.91] 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] Personal history of colonic polyps [Z86.0100] 01/06/2017 Aortic stenosis [I35.0] 01/06/2017 12/22/2018 History of ischemic colitis [Z87.19] 01/06/2017 Adenomatous polyp of descending colon [D12.4] 01/06/2017 Skin cancer [C44.90] 01/06/2017 PAD (peripheral artery disease) (HCC) [I73.9] 01/06/2017 Pedro aneurysm of anterior communicating artery* Stage 3 chronic renal impairment associated wit*03/11/2017 Other chest pain [R07.89] 03/27/2019 09/19/2020 History of pulmonary embolism [Z86.711] 03/27/2019 Ascending aorta dilatation (HCC) [I77.810] 03/27/2019 Chronic bilateral pleural effusions [J90] 03/27/2019 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] 06/15/2019 Right renal mass [N28.89] 06/16/2019 Diverticulitis of large intestine with perforat*06/16/2019 09/12/2021 Diverticulitis large intestine w/o perforation *07/18/2019 Renal cell carcinoma, right (HCC) [C64.1] 10/17/2019 Iron deficiency anemia [D50.9] 10/24/2019 Anemia due to GI blood loss [D50.0] 10/24/2019 03/22/2022 Renal cell carcinoma (HCC) [C64.9] 10/24/2019 09/12/2021 Hypomagnesemia [E83.42] 10/26/2019 Gastrointestinal hemorrhage associated with acu*02/15/2020 Esophageal stenosis [K22.2] 10/28/2019 Dilated cardiomyopathy (HCC) [I42.0] 03/22/2020 Acute on chronic combined systolic and diastoli*09/19/2020 11/12/2023 SSS (sick sinus syndrome) (HCC) [I49.5] 10/21/2020 Encounter for support and coordination of trans*02/15/2021 09/12/2021 Duodenal ulcer [K26.9] 05/20/2021 Type 2 diabetes mellitus with diabetic peripher*09/12/2021 Atrial fibrillation (HCC) [I48.91] 01/12/2022 04/11/2023 Melena [K92.1] 02/22/2022 02/24/2022 Acute kidney injury (HCC) [N17.9] 02/22/2022 02/24/2022 Acute on chronic systolic heart failure (HCC) [*03/19/2022 03/22/2022 Longstanding persistent atrial fibrillation (HC*03/20/2022 S/P placement of cardiac pacemaker [Z95.0] 03/20/2022 CKD (chronic kidney disease) [N18.9] 03/21/2022 Platelet inhibition due to Plavix [Z79.02] 03/21/2022 Diverticulosis [K57.90] 03/21/2022 Lung nodule, solitary [R91.1] 03/22/2022 Red blood cell antibody positive [R76.8] 03/23/2022 Iron 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 *04/07/2022 Iron malabsorption [K90.9] 04/07/2022 Chronic renal failure, stage 3b (HCC) [N18.32] 04/15/2022 Spondylolisthesis at L4-L5 level [M43.16] 07/07/2022 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 Acute on chronic diastolic congestive heart karina*11/09/2023 Acute on chronic diastolic CHF (congestive hear*12/10/2024 Encounter Status:Closed by TAL GONZALEZ on 12/13/24 CASE MANAGEM Observed: 12/12/2024 9:13 AM Status: COMPLETED Source: [facility] HNO ID: [id number] Author: TRINI LONDONO RN Service: Care Management Author Type: Registered Nurse Type: Care Mgt Progress Note Filed: 12/12/2024 09:13 Note Text: CARE MANAGEMENT DISCHARGE NOTE SERVICE DATE: December 12, 2024 SERVICE TIME: 9:13 AM Admission Date: 12/10/2024 LOS: 2 days Discharge Arrangement Discharge Arrangement: Home with Self Care Caregiver Assessment Caregiver is ready, willing and able to meet the patient's needs as recommended by the inter-professional team: No Caregiver needed Transportation Arrangements Transportation Arrangements: Car Date of Trip: 12/12/24 Destination: Home Handoff Communication: Handoff to: Primary Care Physician Primary Care Physician Name/Phone: Deysi Nicholson APRN.[facility] [phone] Additional Information: na Discharge order written for today, patient discharged home with no services. Family will transport. SIGNATURE: Trini Londono RN PATIENT NAME: Berta Sanches DATE: December 12, 2024 TIME: 9:13 AM CNDS Observed: 12/12/2024 8:50 AM Status: COMPLETED Source: [facility] HNO ID: [id number] Author: JUAN DIEGO BYRD MD Service: Hospital Medicine Author Type: Physician Type: Discharge Summary Filed: 12/12/2024 08:51 Note Text: DISCHARGE SUMMARY PATIENT NAME: Berta Sanches Code Status: Full Code Highest Readmission Risk Score: 20 The 30 day readmissions risk score is derived from an internally validated risk model which evaluates patient level characteristics, utilization history, medication orders and lab results up until the day of discharge. Patients with a score of 39 or above are considered highest risk for readmission. Specific patient level drivers will be listed at the bottom of the summary. Admission Information Admission Information ADMIT DATE: 12/10/2024 DISCHARGE DATE: 12/12/24 MY DOCTORS AND MEDICAL TEAM: My Main Hospital Doctor: Juan Diego Byrd MD Primary Care Provider: Deysi Nicholson APRN.CNP My Medical Team Members: Treatment Team: Attending Provider: Juan Diego Byrd MD Consulting: Betsy Hall MD Consulting: Hemant Jimenez MD Consulting: Sonal Silva DO MY CONDITION AT DISCHARGE: Stable REASON I WAS IN THE HOSPITAL: Fluid overload that improved with diuretics. You also have anemia related to taking supervisor intermediates blood thinners and you got better with iron. 1. Take a higher dose of torsemide and follow up with a head grinder and our CHF clinic to guide your torsemide dosing. 2. Take iron pills to keep happy blood counts. Follow up with the vascular surgeon to discuss how long you need to keep plavix and also follow up with the intestine doctors to track your blood counts and do a colonoscopy once you are finished with plavix to remove any intestine polyps. 3. Take pantoprazole twice a day to protect the stomach from any bleeding. Take fiber powder to protect the large intestine from bleeding. 4. Take Farxiga for long-term kidney and heart health. Referral to Cardiology, CHF clinic, Nephrology (kidney), Gastroenterology, Vascular Surgery placed. 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 SUMMARY OF WHAT HAPPENED WHILE I WAS IN THE HOSPITAL: see above OTHER PROBLEMS/DIAGNOSIS: Principal Problem: Acute on chronic diastolic CHF (congestive heart failure) (HCC) Active Problems: Iron deficiency anemia Acute on chronic diastolic congestive heart failure (HCC) Resolved Problems: * No resolved hospital problems. * OPERATIONS PERFORMED WHILE IN THE HOSPITAL: None IMPORTANT TEST/PROCEDURES: No procedures performed TEST RESULTS NOT AVAILABLE AT THIS TIME: No pending results Discharge Disposition Discharge Disposition: Home With Self Care Follow Up Appointments Follow-Up Appointment With: Patient's primary care physician When: In: Patient/Parents to call for appointment?: Yes 1st available, usual location Additional Provider to Provider Information: Ms. 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 Patient presenting with SOB from acute on chronic D-CHF with cardiorenal syndrome along with suspected symptomatic iron def anemia. Improved with diuretics. DC on higher torsemide and chf cards nephro f/u. Also dc on farxiga. Has iron def anemia but improved with IV iron. Follow with GI for eventual endoscopy and dc on oral iron and f/u with vascular surgery to discuss when to stop plavix. Increase PPI to BID and add metamucil to prevent gi bleeding Transitions of Care Critical Issues: SPECIALIST FOLLOW-UP: Cards, CHF clinic, Nephrology, GI, vascular surgery RUCKER MEDICATION CHANGES: see med list LABS AND PROCEDURES PENDING AT DISCHARGE: No pending results. FOLLOW-UP APPOINTMENTS ALREADY SCHEDULED WITH A [facility] PROVIDER: Future Appointments Date Time Provider Department Center 12/21/2024 9:00 AM Albin Gu, CONCRETE GUN OPERATOR.[facility] 01/01/2025 11:00 AM Carla Arriaga MD [facility] [place] 01/10/2025 1:00 PM Deysi Nicholson, CONCRETE GUN OPERATOR.[facility] 02/26/2025 2:20 PM Carla Arriaga MD [facility] [place] ALLERGIES Allergen Reactions Protamine Anaphylaxis Had acute drop in blood pressure and end tidal Co2 shortly after administration during watchman procedure on 01/12/22, treated with 60 mcg epinephrine and 10 mg dexamethasone with good response. Propofol Other: See Comments Hypotension DISCHARGE MEDICATION: Medication List START taking these medications dapagliflozin propanediol 10 mg tablet Commonly known as: FARXIGA Take 1 tablet by mouth once daily. Start taking on: December 13, 2024 ferrous sulfate 325 mg (65 mg iron) tablet Commonly known as: Iron Take 1 tablet by mouth once daily. psyllium 3.4 gram packet Commonly known as: METAMUCIL Take 1 packet by mouth two times a day. CHANGE how you take these medications pantoprazole DR 40 mg tablet Commonly known as: PROTONIX Take 1 tablet by mouth two times a day. What changed: when to take this torsemide 20 mg tablet Commonly known as: DEMADEX Take 2 tablets by mouth two times a day. What changed: how much to take CONTINUE taking these medications acetaminophen 500 mg tablet Commonly known as: TYLENOL Take 1-2 tablets by mouth every 6 hours as needed. ALDACTONE 25 mg tablet Generic drug: spironolactone aspirin 81 mg chewable tablet Take 1 tablet by mouth once daily. atorvastatin 40 mg tablet Commonly known as: LIPITOR Take 1 tablet by mouth once daily. Blood Pressure Monitor Commonly known as: BLOOD PRESSURE KIT 1 Each once daily. blood sugar diagnostic test strip Commonly known as: BLOOD GLUCOSE TEST Test blood sugar(s) 2 times daily. Dx: Type 2 DM - Controlled E11.9 Insulin: No clopidogrel 75 mg tablet Commonly known as: PLAVIX Take 1 tablet by mouth once daily. metoprolol succinate ER 50 mg 24 hr tablet Commonly known as: TOPROL XL Take 1 tablet by mouth two times a day. potassium chloride 10 mEq tablet Commonly known as: K-TAB Take 1 tablet by mouth once daily. Where to Get Your Medications These medications were sent to [facility] [address] [place] [address] - [address] [place] [address] - [address] [place] [id number] [place] [address] dapagliflozin propanediol 10 mg tablet ferrous sulfate 325 mg (65 mg iron) tablet pantoprazole DR 40 mg tablet psyllium 3.4 gram packet torsemide 20 mg tablet Physical Exam Constitutional: General: She is not in acute distress. Appearance: She is not diaphoretic. HENT: Head: Normocephalic. Cardiovascular: Rate and Rhythm: Normal rate. Pulmonary: Effort: Pulmonary effort is normal. Abdominal: General: There is no distension. Palpations: Abdomen is soft. Musculoskeletal: General: Swelling present. Skin: General: Skin is warm. Neurological: Mental Status: She is alert. The patient's risk for 30-day readmission is determined using the following contributing factors: Predictive Model Details 16% (Low) Factor Value Calculated 12/12/2024 05:19 18% Diagnosis Count 46 [facility] READMISSION RISK Model -12% [facility] 11% [facility] -10% Admissions (365d) 1 -8% ED visits (365d) 0 7% Creatinine (Max) 1.9 7% Sodium (Avg) 130.5 7% Appointments (365d) 8 -6% ED Encounter No -6% Length of Stay (d) 2 I have performed the updz-ak-fodw and relevant services for a total of >30 minutes. Time spent dsicussing discharge SIGNATURE: Juan Diego Byrd MD PAGER/CONTACT #: [phone] DATE: December 12, 2024 TIME: 8:50 AM If you have any concerns regarding your visit note today, feel free to reach out to me via [employer] * No active hospital problems. * CONSULT PROG Observed: 12/12/2024 8:37 AM Status: COMPLETED Source: [facility] HNO ID: [id number] Author: BETSY HALL MD Service: Nephrology Author Type: Physician Type: Consult Progress Note Filed: 12/12/2024 08:42 Note Text: NEPHROLOGY CONSULT PROGRESS NOTE Subjective INTERVAL HISTORY: The patient was seen and examined . No acute event overnight. PERTINENT ROS: GENERAL: No fever/chills. RESPIRATORY: Negative for cough, wheezing or shortness of breath. CARDIOVASCULAR: Negative for chest pain or palpitations. GI: Negative for nausea, vomiting, Diarrhea, abdominal pain. : Negative for dysuria and hematuria MEDICATIONS: Current Facility-Administered Medications Medication Dose Route Frequency aspirin 81 mg chewable tab(s) 81 mg ORAL DAILY atorvastatin 40 mg tab(s) (LIPITOR) 40 mg ORAL AT BEDTIME metoprolol succinate ER 50 mg tab(s) (TOPROL XL) 50 mg ORAL BID spironolactone 12.5 mg tab(s) (ALDACTONE) 12.5 mg ORAL BID NaCl 0.9% iv flush bag 20 mL INTRAVENOUS PRN prochlorperazine 10 mg injection (COMPAZINE) 10 mg INTRAVENOUS q 6 H PRN melatonin 3 mg tab(s) 3 mg ORAL AT BEDTIME PRN benzocaine-menthol 1 lozenge (CEPACOL) 1 lozenge MUCOUS MEMBRANE (TOPICAL MOUTH AND THROAT) q 2 H PRN benzonatate 100 mg cap(s) (TESSALON PERLE) 100 mg ORAL TID PRN polyethylene glycol 3350 17 g packet 17 g ORAL DAILY PRN calcium carbonate 1,000 mg chewable tab(s) (TUMS) 1,000 mg ORAL TID PRN acetaminophen 1,000 mg tab(s) (TYLENOL) 1,000 mg ORAL q 6 H PRN oxyCODONE IR 5 mg tab(s) (ROXICODONE) 5 mg ORAL q 4 H PRN ipratropium-albuterol 3 mL nebulizer solution (DUONEB) 3 mL INHALATION q 4 H PRN furosemide 40 mg injection (LASIX) 40 mg INTRAVENOUS q 8 HR dapagliflozin propanediol 10 mg tab(s) (FARXIGA) 10 mg ORAL DAILY psyllium 1 packet (METAMUCIL) 1 packet ORAL BID clopidogrel 75 mg tab(s) (PLAVIX) 75 mg ORAL DAILY ferric gluconate 250 mg in NaCl 0.9% 100 mL (FERRLECIT) 250 mg INTRAVENOUS DAILY AT 6 PM pantoprazole 40 mg injection (PROTONIX) 40 mg INTRAVENOUS BID AC (0600/1600) Objective PHYSICAL EXAM: BP 150/57 Pulse 89 Temp 36.4 ?C (97.5 ?F) (Oral) Resp 16 Ht 157.5 cm (5' 2") Wt 65.6 kg (144 lb 10 oz) SpO2 99% BMI 26.45 kg/m? Intake/Output Summary (Last 24 hours) at 12/12/2024 0837 Last data filed at 12/12/2024 0115 Gross per 24 hour Intake -- Output 2600 ml Net -2600 ml GENERAL: NAD HEENT : NCAT, MMM and pink EYES: Conjunctiva -Pallor, Non icterus sclera. NECK: supple, No JVD, LUNGS: CTA without rales or wheeze, diminished breath sounds, CV: no murmurs, clicks, or gallops. ABDOMEN: soft, NT, BS normal EDEMA : ++ Lower extremity/ __ Dependent edema DATA: Diagnostic tests reviewed for today's visit: Most recent labs and imaging results. Recent Labs 12/12/24 0520 12/11/24 0541 12/10/24 0750 WBC 9.29 7.37 8.21 HB 8.0* 7.6* 8.2* HCT 25.0* 23.8* 26.5* PLT 148* 160 168 NA 134* 130* 131* K 4.1 3.6* 4.2 CHLOR 96* 93* 98 CO2 26 24 20* BUN 47* 54* 63* CREAT 1.69* 1.70* 1.90* GLUC 170* 144* 140* CA 8.8 8.9 9.0 MG 2.0 1.8 1.9 Recent Labs 12/10/24 0750 TPROT 7.3 ALB 3.8* ALT 12 AST 27 ALKPHOS 139* TBILI 0.8 Assessment/Plan 1. Acute kidney injury on chronic kidney disease stage III (baseline creatinine 1.5 to 1.8 mg deciliter) likely in a cardiorenal syndrome. Patient with a previous history of ATN requiring hemodialysis and dialysis catheter was removed on 10/07/2024 2. Hypervolemic hyponatremia 3. Hypokalemia 4. Metabolic acidosis 5. Acute on chronic diastolic congestive heart failure, proBNP 12,509, significant bilateral lower extremity 6. Anemia rule out iron deficiency 7. Proteinuria 8. Atrial fibrillation status post Watchman procedure also history of pacemaker placement 9. Valvular heart disease status post aortic valve replacement 10. Type 2 diabetes 11. GERD Plan of management Renal function: Serum creatinine remained stable with a creatinine of 1.69 g/dL and remained stable. Patient's renal function remained at baseline. Hyponatremia Serum sodium improved to 134 mmol/L with diuretic suggestive of hypervolemic hyponatremia and will continue monitor serum sodium level closely Volume status: Improving although still with significant lower extreme edema Documented urine output of only 2600 mL despite of getting Lasix 40 mg IV every 8 hours yesterday -- Change IV Lasix to torsemide 40 mg twice daily (since admission patient was treated with IV Lasix 40 mg IV every 8 hours) --GDMT: Currently on Farxiga 10 mg daily metoprolol 50 mg 2 times a day, Aldactone 12.5 mg twice daily --CVS: On aspirin 81 mg daily, Lipitor 40 mg daily, Plavix 75 mg daily, --Iron deficiency anemia: Transferrin saturation 4.1 and ferritin 36.2 and currently getting IV Venofer 250 mg IV daily for 4 days --Daily standing weight --2 g salt diet --Fluid restriction 1500 mL/day MONIQUE workup --Urine analysis unremarkable Albumin creatinine ratio 76 mg/g Urine sodium 67 urine creatinine 31.1 urine urea 400 -- Previous record from [place] reviewed in detail. -- Kidney ultrasound from 10/04/2024 reviewed. Significantly increased velocity in proximal left renal artery suggestive of left renal artery stenosis -- Repeat kidney ultrasound and renal artery duplex CBC PNL BLD AUTO Collected: 12/12/2024 5:20 AM Statu s: F Source: [facility] Order Comment: Specimen Type : BLOOD SPECIMEN Ordering Facility: [facility] Address: [address] [place] [id number] TYPE CODE TESTS RESULT OUT OF RANGE REFERENCE UNITS LAB 6690-2(LOINC) WBC # Bld Auto 9.29 3.70-11.00 k/uL LAB 789-8(LOINC) RBC # Bld Auto 2.80 Low 3.90-5.20 m/uL LAB 718-7(LOINC) Hgb Bld-mCnc 8.0 Low 11.5-15.5 g/dL LAB 4544-3(LOINC) Hct VFr Bld Auto 25.0 Low 36.0-46.0 % LAB 787-2(LOINC) MCV RBC Auto 89.3 80.0-100.0 fL LAB 785-6(LOINC) MCH RBC Qn Auto 28.6 26.0-34.0 pg LAB 786-4(LOINC) MCHC RBC Auto-mCnc 32.0 30.5-36.0 g/dL LAB 01775-9(LOINC) RDW RBC-Rto 15.9 High 11.5-15.0 % LAB 777-3(LOINC) Platelet # Bld Auto 148 Low 150-400 k/uL LAB 54729-7(LOINC) PMV Bld Auto 9.9 9.0-12.7 fL LAB 771-6(LOINC) nRBC # Bld Auto <0.01 <0.01 k/uL Performed By: #### [id number] # ### [facility] CLIA [id number] [address] [place] MET[place] 2000 PNL SERPL Collected: 04/2025 5:20 AM Status: F Source: [facility] Order Comment: Specimen Type : BLOOD SPECIMEN Ordering Facility: [facility] Address: [address] [place] [address] TYPE CODE TESTS RESULT OUT OF RANGE REFERENCE UNITS LAB 2345-7(LOINC) Glucose SerPl-mCnc 170 High 74-99 mg/dL Result Comment: The [place] [employer] (ADA) provides guidance for cutoff values for fasting glucose and random glucose. The ADA defines fasting as no caloric intake for at least 8 hours. Fasting plasma glucose results between 100 to 125 mg/dL indicate increased risk for diabetes (prediabetes). Fasting plasma glucose results greater than or equal to 126 mg/dL meet the criteria for diagnosis of diabetes. In the absence of unequivocal hyperglycemia, results should be confirmed by repeat testing. In a patient with classic symptoms of hyperglycemia or hyperglycemic crisis, random plasma glucose results greater than or equal to 200 mg/dL meet the criteria for diagnosis of diabetes. Reference: Standards of Medical Care in Diabetes 2016, [place] [employer] Association. Diabetes Care. 2016.39(Suppl 1). LAB 3094-0(LOINC) BUN SerPl-mCnc 47 High 7-21 mg/ dL LAB 2160-0(LOINC) Creat SerPl-mCnc 1.69 High 0.58-0.96 mg/dL LAB 2951-2(LOINC) Sodium SerPl-sCnc 134 Low 136-144 mmol/L LAB 2823-3(LOINC) Potassium SerPl-sCnc 4.1 3.7-5.1 mmol/L LAB 2075-0(LOINC) Chloride SerPl-sCnc 96 Low 98-107 mmol/L LAB 2028-9(LOINC) CO2 SerPl-sCnc 26 22-30 mmo l/L LAB 91556-3(LOINC) Anion Gap SerPl-sCnc 12 8-15 mmol/L LAB 36718-5(LOINC) Calcium SerPl-mCnc 8.8 8.5-10.2 mg/dL LAB 59305-1(LOINC) Creatinine + eGFR Pnl SerPlBld 31 Low >=60 mL/min/1. 73m??? Result Comment: Estimated Gl omerular Filtration Rate (eGFR) is calculated using the 202 CKD-EPI creatinine equation. This equation utilizes serum creatinine, sex, and age as parameters. The creatinine assay has traceable calibration to isotope dilution-mass spectrometry. Refer to KDIGO guidelines for clinical interpretation. In patients with unstable renal function, e.g. those with acute kidney injury, the eGFR may not accurately reflect actual GFR. Performed By: #### 13883-4, 51668-8 #### [facility] CLIA [id number] [address] [place] [address] [facility] MAGNESI[facility] SERPL-MCNC Collected: 12/12/2024 5:20 AM S tatus: F Source: [facility] Order Comment: Specimen Type : BLOOD SPECIMEN Ordering Facility: [facility] Address: [address] [place] [address] TYPE CODE TESTS RESULT OUT OF RANGE REFERENCE UNITS LAB 35908-6(LOINC) Magnesium SerPl-mCnc 2.0 1.7-2.3 mg/dL Performed By: #### 83493-9, 51322-2 #### [facility] CLIA [id number] [address] OCCULT BLD EXAM-DIAG Observed: 3:48 PM Status: F Source: [facility] OCCULT BLOOD DIAGNOSTIC: Positive Performed By: #### OBDX #### [facility] CLIA [id number] [address] NURSING PROG Observed: 12/11/2024 1:45 PM Status: COMPLETED Source: [facility] HNO ID: [id number] Author: JT BETANCOURT RN Service: Nursing Author Type: Registered Nurse Type: Nursing Progress Note Filed: 12/11/2024 15:17 Note Text: PATIENT EDUCATION HEART FAILURE PATIENT NAME: Berta Sanches PATIENT LOCATION: [place] [address] SURVIVAL SKILLS: Low Sodium Diet Weight Monitoring and Dry Weight Importance of Follow Up after Discharge Fluid Restriction, if applicable Heart Failure Medications Symptom Management related to heart failure Activity / Physical Exercise Recommendations Smoking cessation counseling if applicable When Patient Should Call Provider READINESS TO LEARN COGNITIVE ABILITY: Alert and oriented MOTIVATION TO LEARN: Interested FAMILY SUPPORT: Unable to assess - Family not present INSTRUCTION PROVIDED TO: Patient PATIENT LEARNS BEST BY: Multiple Methods FACTORS AFFECTING LEARNING: None PHYSICAL LIMITATIONS AFFECTING LEARNING: None LEARNING RESPONSE DIAGNOSIS: Heart Failure PATIENT/FAMILY RESPONSE: Initial visit for CHF education. Brief overview of CHF, s/s, and management of. Survival Skills reviewed. Discussed relationship b/t anemia and CHF. Pt follows w/ Dr Arriaga and CHF Clinic, next appointment is 12/21/24. Pt received IV Lasix 11/03/24 for weight of 147lb. Today's weight is 145lb.Stated DRY weight is 135lb. Discussed rationale for 2000mg Sodium diet and fluid allowance. Pt is compliant w/ daily weights, low sodium diet, fluid allowance, and medication and follow up care. METHOD OF INSTRUCTION: Individual instruction Written instruction/Handouts Verbal instruction FOLLOW-UP PLAN: Patient instructed to call with any further issues Reinforce - Repeat previous content Follow up with cardiology Follow up phone call. Contact information given. INSTRUCTIONAL AIDS USED: Heart Failure Binder SUPPLEMENTAL MATERIAL PROVIDED TO PATIENT: Heart Failure Zones handout addressing low sodium diet, activity, medications, symptoms related to heart failure (call the physician's office if you gain greater than 4 pounds), weight monitoring and smoking cessation counseling if applicable. REFERRAL (RECOMMENDATION): Cardiology Electronically Signed By: Jt Betancourt CONSULT Observed: 12/11/2024 11:59 AM Status: COMPLETED Source: [facility] ID: [id number] Author: HEMANT JIMENEZ MD Service: Gastroenterology Author Type: Physician Type: Consults Filed: 12/11/2024 15:46 Note Text: GASTROENTEROLOGY CONSULT NOTE PATIENT NAME: Berta Sanches SERVICE DATE: December 11, 2024 SERVICE TIME: 11:59 AM PRIMARY CARE PHYSICIAN: Deysi Nicholson APRN.MINCEMEAT MAKER ATTENDING PHYSICIAN:Juan Diego Byrd MD REASON FOR ADMISSION: CHF REASON FOR CONSULTATION:MANDIE HPI: This is a 79 year old female with a past medical history significant for cervical cancer, brain aneurysm, s/p coiling, bilateral carotid stenosis, afib s/p watchman 2022, D-CHF, SSS S/P pacemaker placement, Hx AVR, CKD3, HTN, DM, GERD, diverticulitis, 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 Lab work ob arrival significant for AP 139, BUN 63, Creat 1.9 (similar to prior), Na 131, Hgb 8.2, HS GLEN with flat elevation, proBNP 12.5 K,She was admitted to the hospital for CHFE on IV diuretics. Nephrology was consulted for MONIQUE/CKD, hypervolemic hyponatremia. GI and vascular surgery were later consulted for worsening MANDIE in setting of DAPT use. The patient reports weight stable. Denies pain or difficulty swallowing. Denies HB on PPI. Denies abdominal pain, N/V. +Early satiety. Reports having BM every 2 days with occ incomplete evacuation, straining. Reports recently noticing tarry stools, last yesterday. Previously taken oral iron however has been off since 09/2024. Denies Pepto-Bismol use. On ASA/Plavix. Denies NSAID use. Rare alcohol use. Denies tobacco use. Last EGD 2021, last colonoscopy 10/2024. ALLERGIES: ALLERGIES Allergen Reactions Protamine Anaphylaxis Had acute drop in blood pressure and end tidal Co2 shortly after administration during watchman procedure on 01/12/22, treated with 60 mcg epinephrine and 10 mg dexamethasone with good response. Propofol Other: See Comments Hypotension PAST MEDICAL HISTORY: PAST MEDICAL HISTORY Diagnosis Date Abnormal colonoscopy 11/26/2016 08/15/15 colonoscopy for anemia hgb 10.8 with bx ileocecal valve with ischemic bowel disease with focal mucosal ulceration Abnormal CT of the abdomen 07/13/2015 diffuse calcification aorta without dilitation, wall thcikening right colon suspicious for mass (ileocecal ulcer on colonoscopy), diverticulosis right colon Abnormal CXR chronic bilateral interstitial markings, moderate cardiomegaly Atrial fibrillation (HCC) 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) Dr. Aaron [facility] Bilateral carotid artery stenosis 11/26/2016 05/27/16 moderate 50-69% stenosis right and left Bilateral pneumonia 07/20/2015 Cancer of cervix (HCC) Cervical cancer (HCC) 1973 Chest pain 06/01/2015 negative work up with nuclar stress CHF (congestive heart failure) (HCC) Cholesteatoma of right ear surgical removal Chronic mastoiditis of left side Chronic renal failure, stage 3b (HCC) 04/15/2022 Diabetes (HCC) Diabetes (HCC) GERD (gastroesophageal reflux disease) H/O: GI bleed High blood pressure Hypercholesterolemia Mastoiditis of right side s/p mastoidectomy, complete opacitificationright tympanic cavity and mastoid cells on CT 06/01/16 Mitral valve regurgitation Pacemaker 10/21/[address] TRELL VERNON [id number] pulse generator, his bundle lead, right atrial lead Peripheral arterial disease Rheumatic fever Steatosis, liver 03/26/2014 fatty liver on US. No gallstones Tachy-lionel syndrome (HCC) PAST SURGICAL HISTORY: PAST SURGICAL HISTORY Procedure Laterality Date ABLATION 2018 for afib ANESTHESIA EXTERNAL MIDDLE AND INNER EAR W/BX NOS 2002, 2003,04/30/15 CARDIOVERSION 2018 EGD 02/28/2021 ESOPHAGOGASTRODUODENOSCOPY TRANSORAL DIAGNOSTIC 02/28/2021 LAP COLECTOMY, SIGMOID W/SUPERVISOR PLASTIC SHEETS 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 Lua PACEMAKER 10/2019 PART. HYSTERECTOMY W/WO RMVL OVARIES/TUBES 1974 h/o cervical cancer ovaries remain PAST SURGICAL HISTORY OF 1996 Aortic valve repair, Dr. Apodaca PAST SURGICAL HISTORY OF 2001 [address] Beltrán, [facility] PAST SURGICAL HISTORY OF 2015 clipping and coil for brain aneurysm MEDICATIONS: Prior to Admission Medications: aspirin 81 mg chewable tablet, Take 1 tablet by mouth once daily., Disp: 90 tablet, Rfl: , 12/09/2024 atorvastatin (LIPITOR) 40 mg tablet, Take 1 tablet by mouth once daily., Disp: 90 tablet, Rfl: , 12/09/2024 clopidogrel (PLAVIX) 75 mg tablet, Take 1 tablet by mouth once daily., Disp: 90 tablet, Rfl: , 12/09/[address] (PROTONIX) 40 mg tablet, Take 1 tablet by mouth once daily., Disp: 90 tablet, Rfl: , 12/09/2024 spironolactone (ALDACTONE) 25 mg tablet, Take 1 tablet by mouth two times a day., Disp: 180 tablet, Rfl: , 12/09/2024 torsemide (DEMADEX) 20 mg tablet, Take 1 tablet by mouth two times a day., Disp: 180 tablet, Rfl: , 12/09/2024 metoprolol succinate ER (TOPROL XL) 50 mg 24 hr tablet, Take 1 tablet by mouth two times a day., Disp: 180 tablet, Rfl: , 12/09/2024 potassium chloride (K-TAB) 10 mEq tablet, Take 1 tablet by mouth once daily., Disp: 30 tablet, Rfl: , 12/09/2024 Blood Pressure Monitor (BLOOD PRESSURE KIT), 1 Each once daily., Disp: 1 Each, Rfl: 0 acetaminophen (TYLENOL) 500 mg tablet, Take 1-2 tablets by mouth every 6 hours as needed., Disp: , Rfl: , 12/08/2024 blood sugar diagnostic (BLOOD GLUCOSE TEST) test strip, Test blood sugar(s) 2 times daily. Dx: Type 2 DM - Controlled E11.9 Insulin: No, Disp: 50 Strip, Rfl: 11 Current Hospital Medications: Current Facility-Administered Medications Medication Dose Route Frequency aspirin 81 mg chewable tab(s) 81 mg ORAL DAILY atorvastatin 40 mg tab(s) (LIPITOR) 40 mg ORAL AT BEDTIME metoprolol succinate ER 50 mg tab(s) (TOPROL XL) 50 [address]ID pantop[address]ole [address] 40 mg tab(s) (PROTONIX) 40 mg ORAL DAILY spironolactone 12.5 mg tab(s) (ALDACTONE) 12.5 mg ORAL BID NaCl 0.9% iv flush bag 20 mL INTRAVENOUS PRN prochlorperazine 10 mg injection (COMPAZINE) 10 mg INTRAVENOUS q 6 H PRN melatonin 3 mg tab(s) 3 mg ORAL AT BEDTIME PRN benzocaine-menthol 1 lozenge (CEPACOL) 1 lozenge MUCOUS MEMBRANE (TOPICAL MOUTH AND THROAT) q 2 H PRN benzonatate 100 mg cap(s) (TESSALON PERLE) 100 mg ORAL TID PRN polyethylene glycol 3350 17 g packet 17 g ORAL DAILY PRN calcium carbonate 1,000 mg chewable tab(s) (TUMS) 1,000 mg ORAL TID PRN acetaminophen 1,000 mg tab(s) (TYLENOL) 1,000 mg ORAL q 6 H PRN oxyCODONE IR 5 mg tab(s) (ROXICODONE) 5 mg ORAL q 4 H PRN ipratropium-albuterol 3 mL nebulizer solution (DUONEB) 3 mL INHALATION q 4 H PRN furosemide 40 mg injection (LASIX) 40 mg INTRAVENOUS q 8 HR dapagliflozin propanediol 10 mg tab(s) (FARXIGA) 10 mg ORAL DAILY potassium chloride ER 40 mEq tab(s) (KLOR-CON) 40 mEq ORAL ONCE ferric gluconate 125 mg in NaCl 0.9% 100 mL (FERRLECIT) 125 mg INTRAVENOUS DAILY AT 6 PM psyllium 1 packet (METAMUCIL) 1 packet ORAL BID [START ON 12/12/2024] clopidogrel 75 mg tab(s) (PLAVIX) 75 mg ORAL DAILY FAMILY HISTORY: Denies FH GI malginancy SOCIAL HISTORY: Social History Tobacco Use Smoking status: Former Current packs/day: 0.00 Average packs/day: 0.3 packs/day for 2.0 years (0.5 ttl pk-yrs) Types: Cigarettes Start date: 1965 Quit date: 1967 Years since quittin.4 Smokeless tobacco: Never Vaping Use Vaping status: Never Used Substance Use Topics Alcohol use: Not Currently Alcohol/week: 1.0 standard drink of alcohol Types: 1 Glasses of Wine (5oz) per week Comment: red wine 2-3 times a week- occasional Drug use: No Marital status: Children:1 Alcohol use:Rare use Tobacco use:Denies REVIEW OF SYSTEMS: CONSTITUTIONAL: No fevers, chills, night sweats, unintended weight loss HEENT: Denies frequent or severe headaches EYES: No diplopia or blurry vision CARDIOVASCULAR: Dyspnea, orthopnea, swelling resolving. Denies CP PULM: Dyspnea resolving GI: Per HPI : No new urinary complaints, including; dysuria, gross hematuria or pyuria NEURO: No dizziness, lightheadedness or vertigo MUSC/SKEL: No new joint pain, swelling, or erythema PSYCH: No concerns regarding depression, anxiety or panic INTEGUMENTARY: No new skin changes (rash, new or changing mole, new growth) PHYSICAL EXAM: Patient Vitals for the past 24 hrs: BP Temp Temp src Pulse Resp SpO2 Height Weight 12/11/24 0747 153/52 36.7 ?C (98.1 ?F) Oral 83 16 93 % -- -- 12/11/24 0400 130/67 36.7 ?C (98.1 ?F) Oral 84 16 97 % -- 66.1 kg (145 lb 11.6 oz) 12/11/24 0052 (!) 157/46 -- -- 84 -- 100 % -- -- 12/10/24 2326 139/62 36.4 ?C (97.5 ?F) Oral 84 18 100 % -- -- 12/10/24 1921 157/52 36.7 ?C (98.1 ?F) Oral 91 16 98 % -- -- 12/10/24 1429 -- -- -- -- -- -- -- 66.5 kg (146 lb 9.7 oz) 12/10/24 1427 151/52 37 ?C (98.6 ?F) Oral 80 18 100 % 157.5 cm (5' 2") 66.5 kg (146 lb 9.7 oz) 12/10/24 1345 174/72 -- -- 76 -- 97 % -- -- 12/10/24 1330 157/68 -- -- 81 -- 98 % -- -- 12/10/24 1320 177/72 -- -- 82 -- 100 % -- -- 12/10/24 1245 167/69 -- -- 80 -- 97 % -- -- 12/10/24 1230 171/74 -- -- 81 -- 98 % -- -- 12/10/24 1200 167/72 -- -- 81 -- 98 % -- -- Body mass index is 26.65 kg/m?. GENERAL: Alert AND oriented x 3. Cooperative. NAD EYES: No scleral icterus SKIN: +Pallor. No jaundice LUNGS: Clear to auscultation anteriorly CARDIAC: RRR ABDOMEN: Abdomen soft and non distended. BS present. No TTP. THANIA: External hemorrhoids with no stigmata of bleeding noted. No palpable mass in rectal vault. Scant amount of tarry stool noted on fingertip EXTREMITIES: Non pitting bilateral lower extremity edema LABS: Diagnostic tests reviewed for today's visit: CBC, Coags, BMP, Mg, Phos Recent Labs 12/11/24 0541 12/10/24 0750 WBC 7.37 8.21 HB 7.6* 8.2* HCT 23.8* 26.5* PLT 160 168 NA 130* 131* K 3.6* 4.2 CHLOR 93* 98 CO2 24 20* BUN 54* 63* CREAT 1.70* 1.90* GLUC 144* 140* CA 8.9 9.0 MG 1.8 1.9 Liver Function, Amylase, AND Lipase Recent Labs 12/10/24 0750 TPROT 7.3 ALB 3.8* ALT 12 AST 27 ALKPHOS 139* TBILI 0.8 Latest Reference Range AND Units 04/07/23 08:34 11/01/23 09:03 11/09/23 09:35 11/10/23 04:19 11/11/23 04:48 11/12/23 04:41 11/19/23 10:01 10/31/24 11:52 12/10/24 07:50 Hemoglobin 11.5 - 15.5 g/dL 13.4 11.3 (L) 10.9 (L) 10.1 (L) 10.6 (L) 10.9 (L) 11.5 8.7 (L) 8.2 (L) [facility] Latest Ref Rng 12/10/2024 12/11/2024 Color Yellow Yellow Clarity Clear Clear Glucose, Urine Negative Negative Bilirubin, Urine Negative Negative Ketones, Urine Negative Negative Specific [place], Ur 1.005 - 1.030 1.010 Hemoglobin/Blood,Ur Negative Negative pH, Urine 5.0 - 8.0 6.5 Protein, Urine Negative Negative Urobilinogen 0.2-1.0 EU/dL 0.2 EU/dL Nitrites Negative Negative Leukest Negative Negative Iron 41 - 186 ug/dL 17 (L) TIBC 232 - 386 ug/dL 416 (H) Transferrin Saturation 15.0 - 57.0 % 4.1 (L) GLEN High Sensitivity <12 ng/L 63 (H) GLEN High Sensitivity 66 (H) GLEN High Sensitivity 72 (H) NT Pro BNP <450 pg/mL 12,509 (H) Ferritin 14.7 - 205.1 ng/mL 36.2 Vitamin B12 232 - 1,245 pg/mL 1,393 (H) Folate >4.7 ng/mL 11.3 RADIOLOGY 02/22/22 CT AP W IVCON IMPRESSION: No acute findings in the abdomen or pelvis * * * * * * * * ADDENDUM #1 * * * * * * * * Redemonstrated 2.5 cm mass in the superior pole of the right kidney 10/04/24 Duplex IMPRESSION: * Severe velocity elevation celiac axis suggesting high-grade stenosis * No flow demonstrated in the superior mesenteric artery which could be secondary to stent occlusion or this could also be technical if a stent graft was placed which usually does not allow for acoustic penetration in the early post implantation phase. Based on the prior imaging from a vascular study in the [place] 10/02/2024, it is unclear what device was implanted. 10/18/24 CTA AP IMPRESSION: 1. 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 2. Calcifications in the liver and spleen consistent with granulomatous disease. 3. 50% stenosis of the right common femoral artery and occlusion of the proximal left superficial femoral artery secondary to calcified atherosclerotic plaque. 4. Small volume ascites. 5. Small left pleural effusion with associated atelectasis. 12/11/24 Renal US IMPRESSION: RIGHT: 0-59% stenosis of the renal artery. LEFT: 60-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 MOST RECENT EGD 01/02/22 by Chai Encinas MD for MANDIE, hx DU - Normal examined jejunum. - Normal examined duodenum. - Gastritis. Biopsied. - Non-severe reflux esophagitis. Biopsied. A. Stomach, antrum, biopsy: - Chronic active gastritis; see comment. B. Esophagus, lower, biopsy: - Squamous mucosa and slight chronically inflamed gastric mucosa; negative for intestinal metaplasia and dysplasia. A. Given the background of chronic gastritis, a Helicobacter pylori immunostain is performed on block A and is negative for Helicobacter pylori organisms. Although the histology is somewhat suggestive of Helicobacter pylori, the immuno histochemical stain shows no evidence of Helicobacter pylori organisms. This can sometimes be explained on the basis of prior antibiotic exposure or migration of organisms in the seting of proton pump inhibitors 02/28/21 EGD by Chai Encinas MD for epigastric pain, melena - Normal examined jejunum. - Normal examined duodenum. - Gastritis. Biopsied. - Small hiatal hernia. - Normal esophagus. 10/25/2019 EGD by Hoda Torres MD for epigastric pain, post-hemorrhagic anemia, heme positive stool - Normal duodenal bulb, first portion of the duodenum and second portion of the duodenum. Biopsied. - Non-bleeding erosive gastropathy. Biopsied. - Benign-appearing esophageal stenosis. Dilated. - 4 cm hiatal hernia. 1. Duodenum, biopsy (A): Duodenal mucosa with no significant pathologic abnormality. 2. Stomach, biopsy (B): Focal active gastritis. MOST RECENT COLONOSCOPY 10/17/24 by Brayan Meraz MD for hematochezia - Preparation of the colon was fair. - Tortuous left colon. - Blood and clot throughout the left colon. - At approximately 45 cm from the entry site, severely ulcerated mucosa with stigmata of recent bleeding was seen. A very large adherent clot was seen over the ulceration which was occluding the lumen. The area was not able to be traversed due to poor visualization from the large clot burden and the tortuous lumen. Biopsies were taken with a cold forceps from the ulcerated mucosa. - Diverticulosis in the sigmoid colon. - The distal rectum and anal verge are normal on retroflexion view. - No prosthetic devices, grafts, tissues, transplants or devices were implanted. A. Left colon, biopsy: - Benign colonic mucosa with nonspecific ulceration, associated acute/chronic inflammation, granulation tissue formation, and reactive epithelial and stromal changes. 02/23/22 Colonoscopy by Brayan Whitehead MD for hematochezia - Two 3 to 5 mm polyps in the ascending colon, removed with a cold snare. Resected and retrieved. - Blood in the entire examined colon. - Diverticulosis in the sigmoid colon and in the descending colon. - Internal hemorrhoids. - The examination was otherwise normal. A. Colon, ascending polyps (x2), biopsy: -Tubular adenoma. -Fragments of sessile serrated polyp. 10/26/2019 Colonoscopy by Hoda Torres MD for heme positive stool MANDIE, epigastric abdominal pain - Few diverticulosis in the sigmoid colon. - Normal sugical anastomosis. - Non-bleeding internal hemorrhoids. - No specimens collected. 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 s/p laparoscopic sigmoid colectomy, creation of omental pedical flap and takedown of colovesicle fistula (07/2019) /Diverticulosis/Colon polyps/Hemorrhoids CHF exacerbation MONIQUE/CKD/Hyponatremia/Hypokalemia/Metabolic acidosis Afib s/p watchmen/ SSS s/p pacemaker placement (checked 10/04/24)/Valvular heart disease s/p AVR/PE/PAD Brain aneurysm s/p clipping and coiling Hx MANDIE PLAN - Monitor for overt s/s GI bleeding - Change Ferrlecit from 125mg IV daily to 250mg IV daily - Change Pantoprazole 40mg po daily>40mg IV BID - Transfuse for Hgb </=7 or if symptomatic - ASA and Plavix ensue - Metamucil 1 packet BID - Heart healthy diet - Obtain stool for OB - Serial labs - Await vascular surgery's recommendations regarding ongoing anti-platelet use - Recommend endoscopic evaluation beginning with EGD following clearance of Plavix (~5 days) and pending patient's wishes (currently reluctant to proceed with inpatient if it were to delay release from hospital) - Further recommendations pending clinical course and findings Thank you for the opportunity to participate in the care of this patient. I will continue to follow with you. SIGNATURE: Hemant Jimenez MD DATE: December 11, 2024 TIME: 11:59 AM CASE MGT INFADUMO LEY Observed: 12/11/2024 11:50 AM Status: COMPLETED Source: [facility] HNO ID: [id number] Author: MAXIMINO JENNINGS RN Service: Care Management Author Type: Registered Nurse Type: Care Mgt Initial Assessment Filed: 12/11/2024 11:51 Note Text: CARE MANAGEMENT: ASSESSMENT AND DISCHARGE PLAN SERVICE DATE: December 11, 2024 SERVICE TIME: 11:50 AM PCP: Deysi Nicholson APRN.CNP Primary Contact: Extended Emergency Contact Information Primary Emergency Contact: Natanael Sanches [address]: [address] [place] [address] Mobile Relation: Spouse Admission Status: Inpatient Insurance Provider: [employer] PPO Discharge Planning requested by: Per Department Practice Potential Transition Plans Home Advance Directives Current Advance Directive: Living Will, Health Care Power of Supply And Distribution Manager In Chart: No Current Living Arrangements and Support Lives with: Spouse/significant other Type of Residence: Private Residence (House) Does the patient have to climb stairs at home?: Yes, stairs outside the home Support: Spouse/significant other How do you manage to accomplish the following: Independent: Ambulation, Bathe/Shower, Dress, Meals/Meal Prep, Going to the bathroom, Medication Management, Transportation to appointments/community Current Services/Equipment Current Post-Acute Service(s): None Discharge Planning Patient Goal(s): General wellness [place] Explained: [place] Given: No Reason Not Given: No placements necessary Are you interested in bedside delivery of your medications? Pretty, Brayden in [place] Discharge Planning Participant(s): Patient Patient/Family Comments: Caregiver Assessment: Caregiver is ready, willing and able to meet the patient's needs as recommended by the inter-professional team: No Caregiver needed Transport at Discharge: Transportation Arrangements: Car Needs Prior to Discharge: Needs Prior to Discharge: Other: See Comment (medical clearance) Post-Acute Discharge Plan: EMR reviewed. Patient admitted with acute on chronic CHF. RNCM spoke to patient to complete assessment. 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 to transport upon DC. CM assigned will continue to follow for DC planning needs. SIGNATURE: Maximino Jennings RN PATIENT NAME: Berta Sanches DATE: December 11, 2024 TIME: 11:50 AM PROGRESS Observed: 12/11/2024 11:36 AM Status: COMPLETED Source: [facility] HNO ID: [id number] Author: JUAN DIEGO BYRD MD Service: Hospital Medicine Author Type: Physician Type: Progress Notes Filed: 12/11/2024 11:50 Note Text: HOSPITAL MEDICINE PROGRESS NOTE History: SOB better. No new symptoms Exam: BP 153/52 Pulse 83 Temp 36.7 ?C (98.1 ?F) (Oral) Resp 16 Ht 157.5 cm (5' 2") Wt 66.1 kg (145 lb 11.6 oz) SpO2 93% BMI 26.65 kg/m? Physical Exam Constitutional: General: She is not in acute distress. Appearance: She is not diaphoretic. HENT: Head: Normocephalic. Cardiovascular: Rate and Rhythm: Normal rate. Pulmonary: Effort: Pulmonary effort is normal. Abdominal: General: There is no distension. Palpations: Abdomen is soft. Musculoskeletal: General: Swelling present. Skin: General: Skin is warm. Neurological: Mental Status: She is alert. ASSESSMENT: Ms. 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 Patient presenting with SOB from acute on chronic D-CHF with cardiorenal syndrome along with suspected symptomatic iron def anemia. Nephro guiding diuretics. Continue. Hgb used to be 11 g/dL about 1 year ago and now 7.6 g/dL with iron deficiency. Consult vascular to discuss plavix usage given the trending down hgb. IV Iron Rx. GI consult for GI eval of iron def anemia. Continue PPI for any potential gastritis and add metamucil in case any underlying diverticulosis/hemorrhoids. Active Hospital Problems Diagnosis Date Noted Acute on chronic diastolic CHF (congestive heart failure) (HCC) 12/10/2024 Acute on chronic diastolic congestive heart failure (HCC) 11/09/2023 Iron deficiency anemia 10/24/2019 Leg blood clot prevention: low risk SIGNATURE: Juan Diego Byrd MD DATE: 12/11/2024 TIME: 11:47 AM VIT B12 SERPL-MCNC Collected: 12/11/2024 9:42 AM Sta tus: F Source: [facility] Order Comment: Specimen Type : BLOOD SPECIMEN Ordering Facility: [facility] Address: [address] [place] [address] TYPE CODE TESTS RESULT OUT OF RANGE REFERENCE UNITS LAB 2132-9(LOINC) Vit B12 SerPl-mCnc 1393 High 232-1245 pg/mL Performed By: #### 2132-9, 2 284-8 #### [facility] CLIA [id number] [address] [place], [place] [id number] [place] [address] [place] FOLATE SERPL-MCNC Collected: 12/11/2024 9:42 AM Stat us: F Source: [facility] Order Comment: Specimen Type : BLOOD SPECIMEN Ordering Facility: [facility] Address: [address] [place] [address] TYPE CODE TESTS RESULT OUT OF RANGE REFERENCE UNITS LAB 2284-8(LOINC) Folate SerPl-mCnc 11.3 >4.7 ng/mL Performed By: #### 2132-9, 2 284-8 #### [facility] CLIA [id number] [address] [place] [address] [place] CONSULT PROG Observed: 12/11/2024 9:16 AM Status: COMPLETED Source: [facility] HNO ID: [id number] Author: BETSY HALL MD Service: Nephrology Author Type: Physician Type: Consult Progress Note Filed: 12/11/2024 09:18 Note Text: NEPHROLOGY CONSULT PROGRESS NOTE Subjective INTERVAL HISTORY: The patient was seen and examined . No acute event overnight. PERTINENT ROS: GENERAL: No fever/chills. RESPIRATORY: Negative for cough, wheezing or shortness of breath. CARDIOVASCULAR: Negative for chest pain or palpitations. GI: Negative for nausea, vomiting, Diarrhea, abdominal pain. : Negative for dysuria and hematuria MEDICATIONS: Current Facility-Administered Medications Medication Dose Route Frequency aspirin 81 mg chewable tab(s) 81 mg ORAL DAILY atorvastatin 40 mg tab(s) (LIPITOR) 40 mg ORAL AT BEDTIME clopidogrel 75 mg tab(s) (PLAVIX) 75 mg ORAL DAILY metoprolol succinate ER 50 mg tab(s) (TOPROL XL) 50 mg ORAL BID pantoprazole DR 40 mg tab(s) (PROTONIX) 40 mg ORAL DAILY spironolactone 12.5 mg tab(s) (ALDACTONE) 12.5 mg ORAL BID NaCl 0.9% iv flush bag 20 mL INTRAVENOUS PRN prochlorperazine 10 mg injection (COMPAZINE) 10 mg INTRAVENOUS q 6 H PRN melatonin 3 mg tab(s) 3 mg ORAL AT BEDTIME PRN benzocaine-menthol 1 lozenge (CEPACOL) 1 lozenge MUCOUS MEMBRANE (TOPICAL MOUTH AND THROAT) q 2 H PRN benzonatate 100 mg cap(s) (TESSALON PERLE) 100 mg ORAL TID PRN polyethylene glycol 3350 17 g packet 17 g ORAL DAILY PRN calcium carbonate 1,000 mg chewable tab(s) (TUMS) 1,000 mg ORAL TID PRN acetaminophen 1,000 mg tab(s) (TYLENOL) 1,000 mg ORAL q 6 H PRN oxyCODONE IR 5 mg tab(s) (ROXICODONE) 5 mg ORAL q 4 H PRN ipratropium-albuterol 3 mL nebulizer solution (DUONEB) 3 mL INHALATION q 4 H PRN furosemide 40 mg injection (LASIX) 40 mg INTRAVENOUS q 8 HR dapagliflozin propanediol 10 mg tab(s) (FARXIGA) 10 mg ORAL DAILY Objective PHYSICAL EXAM: BP 153/52 Pulse 83 Temp 36.7 ?C (98.1 ?F) (Oral) Resp 16 Ht 157.5 cm (5' 2") Wt 66.1 kg (145 lb 11.6 oz) SpO2 93% BMI 26.65 kg/m? Intake/Output Summary (Last 24 hours) at 12/11/2024 0916 Last data filed at 12/11/2024 0225 Gross per 24 hour Intake 600 ml Output 900 ml Net -300 ml GENERAL: NAD HEENT : NCAT, MMM and pink EYES: Conjunctiva -Pallor, Non icterus sclera. NECK: supple, No JVD, LUNGS: CTA without rales or wheeze, diminished breath sounds, CV: no murmurs, clicks, or gallops. ABDOMEN: soft, NT, BS normal EDEMA : ++ Lower extremity/ __ Dependent edema DATA: Diagnostic tests reviewed for today's visit: Most recent labs and imaging results. Recent Labs 12/11/24 0541 12/10/24 0750 WBC 7.37 8.21 HB 7.6* 8.2* HCT 23.8* 26.5* PLT 160 168 NA 130* 131* K 3.6* 4.2 CHLOR 93* 98 CO2 24 20* BUN 54* 63* CREAT 1.70* 1.90* GLUC 144* 140* CA 8.9 9.0 MG 1.8 1.9 Recent Labs 12/10/24 0750 TPROT 7.3 ALB 3.8* ALT 12 AST 27 ALKPHOS 139* TBILI 0.8 Assessment/Plan 1. Acute kidney injury on chronic kidney disease stage III (baseline creatinine 1.5 to 1.8 mg deciliter) likely in a cardiorenal syndrome. Patient with a previous history of ATN requiring hemodialysis and dialysis catheter was removed on 10/07/2024 2. Hypervolemic hyponatremia 3. Hypokalemia 4. Metabolic acidosis 5. Acute on chronic diastolic congestive heart failure, proBNP 12,509, significant bilateral lower extremity 6. Anemia rule out iron deficiency 7. Proteinuria 8. Atrial fibrillation status post Watchman procedure also history of pacemaker placement 9. Valvular heart disease status post aortic valve replacement 10. Type 2 diabetes 11. GERD Plan of management Renal function: Serum creatinine decreased to 1.70 Patient sodium is 130 potassium 3.6 and KCl supplement. Monitor serum sodium level Documented urine output of only 900 mL despite of getting Lasix 40 mg IV every 8 hours yesterday --Continue Lasix 40 mg IV 8 hours 1 more day if does not respond in terms of diuresis then we will start continuous Lasix drip --Urine analysis unremarkable Albumin creatinine ratio 76 mg/g Urine sodium 67 urine creatinine 31.1 urine urea 400 --Daily standing weight --2 g salt diet --Fluid restriction 1500 mL/day --Monitor renal function and electrolytes --Add Farxiga 10 mg p.o. daily --Continue Aldactone 12.5 mg p.o. twice daily -- Previous record from [place] reviewed in detail. -- Kidney ultrasound from 10/04/2024 reviewed. Significantly increased velocity in proximal left renal artery suggestive of left renal artery stenosis -- Repeat kidney ultrasound and renal artery duplex US RENAL ARTERY/VEIN Observed: 9:15 AM Status: F Source: [facility] * * *Final Report* * * DATE OF EXAM: Dec 11 2024 9:15AM MARIKA 1094 - US RENAL ARTERY/VEIN / PROCEDURE REASON: Renovascular HTN suspected, normal renal function * * * * Physician Interpretation * * * * DUPLEX ULTRASOUND OF THE RENAL VASCULATURE 12/11/2024 9:15 AM CLINICAL HISTORY: 79 years old Female with Renovascular HTN suspected, normal renal function. TECHNIQUE: Targeted sonography of the kidneys was performed, with color and spectral (duplex) Doppler imaging of the abdominal aorta, renal arteries and veins. Images were obtained and stored in a permanent archive. COMPARISON: CT abdomen pelvis 02/22/2022 RESULT: Limitations: Suboptimal visualization due to body habitus. Right Kidney: Right renal artery: (Peak systolic velocity, resistive index) - Origin (57 cm/s, 0.81) - Proximal (91 cm/s, 0.87) - Mid (54 cm/s, 0.86) - Distal (55 cm/s, 0.90) Vein: Patent -Renal length: 8.7 cm. -Parenchyma: Renal parenchyma echogenicity is normal. -Cortical thickness: Normal. -Hydronephrosis: None. Left Kidney: Left renal artery: (Peak systolic velocity, resistive index) - Origin (135 cm/s, 0.97) - Proximal (609 cm/s, 0.96) - Mid (113 cm/s, 0.89) - Distal (66 cm/s, 0.92) Vein: Patent -Renal length: 10.6 cm. -Parenchyma: Renal parenchyma echogenicity is normal. -Cortical thickness: Normal. -Hydronephrosis: None. Aorta (PSV): 45 Right renal to aorta ratio: 2.0 Left renal to aorta ratio: 13.5 IMPRESSION: RIGHT: 0-59% stenosis of the renal artery. LEFT: 60-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 Supervisor Special Services: JAMES Transcribe Date/Time: Dec 11 2024 11:31A Dictated by : ANNETTA ALLEN DO This examination was interpreted and the report reviewed and electronically signed by: ANNETTA ALLEN DO on Dec 11 2024 11:41AM EST [id number] ALLIED HEALTH Observed: 12/11/2024 9:14 AM Status: COMPLETED Source: [facility] HNO ID: [id number] Author: NUNU CHATMAN RDMS Service: ? Author Type: Technologist Type: Allied Health Filed: 12/11/2024 09:14 Note Text: Radiology Service Progress Note PATIENT NAME: Berta Sanches DATE OF SERVICE: December 11, 2024 TIME: 9:14 AM PATIENT IDENTITY VERIFICATION COMPLETED USING TWO (2) IDENTIFIERS: Name and Date of confirmed by patient verbally and Name and Date of confirmed by identification band. FALL SCREENING: Has the patient had 2 falls in the last year or 1 fall with injury or currently using an Ambulatory Assistive Device (Walker, Cane, Wheelchair, Crutches, etc.)? Inpatient: Screened on floor PATIENT GENDER DATA: Assigned female at . 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 HELPER: N/A RADIOLOGY DEPARTMENT: Ultrasound PERIPHERAL IV DATA: Not applicable SIGNED BY: Nunu Chatman RDMS December 11, 2024 9:14 AM BAS METAB 2000 PNL SERPL Collected: 03/2025 5:41 AM Status: F Source: [facility] Order Comment: Specimen Type : BLOOD SPECIMEN Ordering Facility: [facility] Address: [address] [place], [place] [id number] TYPE CODE TESTS RESULT OUT OF RANGE REFERENCE UNITS LAB 2345-7(LOINC) Glucose SerPl-nc 144 High 74-99 mg/dL Result Comment: The [place] Diabetes Association (ADA) provides guidance for cutoff values for fasting glucose and random glucose. The ADA defines fasting as no caloric intake for at least 8 hours. Fasting plasma glucose results between 100 to 125 mg/dL indicate increased risk for diabetes (prediabetes). Fasting plasma glucose results greater than or equal to 126 mg/dL meet the criteria for diagnosis of diabetes. In the absence of unequivocal hyperglycemia, results should be confirmed by repeat testing. In a patient with classic symptoms of hyperglycemia or hyperglycemic crisis, random plasma glucose results greater than or equal to 200 mg/dL meet the criteria for diagnosis of diabetes. Reference: Standards of Medical Care in Diabetes 2016, [place] Diabetes Association. Diabetes Care. 2016.39(Suppl 1). LAB 3094-0(LOINC) BUN SerPl-mCnc 54 High 7-21 mg/ dL LAB 2160-0(LOINC) Creat SerPl-mCnc 1.70 High 0.58-0.96 mg/dL LAB 2951-2(LOINC) Sodium SerPl-sCnc 130 Low 136-144 mmol/L LAB 2823-3(LOINC) Potassium SerPl-sCnc 3.6 Low 3.7-5.1 mmol/L LAB 2075-0(LOINC) Chloride SerPl-sCnc 93 Low 98-107 mmol/L LAB 2028-9(LOINC) CO2 SerPl-sCnc 24 22-30 mmo l/L LAB 12903-3(LOINC) Anion Gap SerPl-sCnc 13 8-15 mmol/L LAB 19053-9(LOINC) Calcium SerPl-mCnc 8.9 8.5-10.2 mg/dL LAB 85692-9(LOINC) Creatinine + eGFR Pnl SerPlBld 30 Low >=60 mL/min/1. 73m??? Result Comment: Estimated Gl omerular Filtration Rate (eGFR) is calculated using the 2020 CKD-EPI creatinine equation. This equation utilizes serum creatinine, sex, and age as parameters. The creatinine assay has traceable calibration to isotope dilution-mass spectrometry. Refer to KDIGO guidelines for clinical interpretation. In patients with unstable renal function, e.g. those with acute kidney injury, the eGFR may not accurately reflect actual GFR. Performed By: #### 06007-2, 2276-4, 46520-6, 79800-2 #### [facility] CLIA [id number] [address] MAGNESIUM SERPL-MCNC Collected: 12/11/2024 5:41 AM S tatus: F Source: [facility] Order Comment: Specimen Type : BLOOD SPECIMEN Ordering Facility: [facility] Address: [address] [place] [address] TYPE CODE TESTS RESULT OUT OF RANGE REFERENCE UNITS LAB 13232-3(LOINC) Magnesium SerPl-mCnc 1.8 1.7-2.3 mg/dL Performed By: #### 39069-0, 2276-4, 10143-2, 55770-2 #### [facility] CLIA [id number] [address] FERRITIN SERPL-MCNC Collected: 12/11/2024 5:[address] atus: F Source: [facility] Order Comment: Specimen Type : BLOOD SPECIMEN Ordering Facility: [facility] Address: [address] [place] [address] TYPE CODE TESTS RESULT OUT OF RANGE REFERENCE UNITS LAB 6-4(LOINC) Ferritin SerPl-mCnc 36.2 14.7-205.1 ng/mL Performed By: #### 08352-0, 2276-4, 18288-5, 53070-7 #### [facility] CLIA [id number] [address] IRON+TIBC PNL SERPL Collected: 12/11/2024 5:[address] atus: F Source: [facility] Order Comment: Specimen Type : BLOOD SPECIMEN Ordering Facility: [facility] Address: [address] [place] [address] TYPE CODE TESTS RESULT OUT OF RANGE REFERENCE UNITS LAB 2498-4(LOINC) Iron SerPl-mCnc 17 Low 41-186 ug/dL LAB 2500-7(LOINC) TIBC SerPl-mCnc 416 High 232-386 ug/dL LAB 47354-9(LOINC) Iron/TIBC SerPl-sRto 4.1 Low 15.0-57.0 % Performed By: #### 30029-1, 2276-4, 13228-9, 61823-7 #### [facility] CLIA [id number] [address] [place] [address] [place] CBC PNL BLD AUTO Collected: 12/11/2024 5:41 AM Statu s: F Source: [facility] Order Comment: Specimen Type : BLOOD SPECIMEN Ordering Facility: [facility] Address: [address] [place] [address] TYPE CODE TESTS RESULT OUT OF RANGE REFERENCE UNITS LAB 6690-2(LOINC) WBC # Bld Auto 7.37 3.70-11.00 k/uL LAB 789-8(LOINC) RBC # Bld Auto 2.68 Low 3.90-5.20 m/uL LAB 718-7(INC) Hgb Bld-mCnc 7.6 Low 11.5-15.5 g/dL LAB 4544-3(INC) Hct VFr Bld Auto 23.8 Low 36.0-46.0 % LAB 787-2(LOINC) MCV RBC Auto 88.8 80.0-100.0 fL LAB 785-6(LOINC) MCH RBC Qn Auto 28.4 26.0-34.0 pg LAB 786-4(LOINC) MCHC RBC Auto-mCnc 31.9 30.5-36.0 g/dL LAB 58488-1(INC) RDW RBC-Rto 16.1 High 11.5-15.0 % LAB 777-3(LOINC) Platelet # Bld Auto 160 150-400 k/uL LAB 92781-2(LOINC) PMV Bld Auto 9.8 9.0-12.7 fL LAB 771-6(LOINC) nRBC # Bld Auto <0.01 <0.01 k/uL Performed By: #### 01947-9 # ### [facility] CLIA [id number] [address] [place] [id number] [place] CREAT ?TM UR-MCNC Collected: 12/11/2024 2:19 AM Stat us: F Source: [facility] Order Comment: Specimen Type : URINE SPECIMEN Ordering Facility: [facility] Address: [address] [place] [address] TYPE CODE TESTS RESULT OUT OF RANGE REFERENCE UNITS LAB 2161-8(LOINC) Creat Ur-mCnc 31.1 20.0-300.0 m g/dL Performed By: #### UACR, 289 0-2, 37626-5, UUNR, 71844-9 #### [facility] CLIA [id number] [address] [place], [place] [id number] [place] PROT/CREAT UR Collected: 2:19 AM Status: F Source: [facility] Order Comment: Specimen Type : URINE SPECIMEN Ordering Facility: [facility] Address: [address] [place] [address] TYPE CODE TESTS RESULT OUT OF RANGE REFERENCE UNITS LAB 2888-6(LOINC) Prot Ur-mCnc 8 0-20 mg/dL LAB 2161-8(LOINC) Creat Ur-mCnc 31.1 20.0-300.0 mg/dL LAB 2890-2(LOINC) Prot/Creat Ur 0.26 High <0.15 mg/mg Result Comment: Adult Protei melina Categories: <0.15 mg/mg is considered normal to mildly increased 0.15 - 0.50 mg/mg is considered moderately increased >0.50 mg/mg is considered severely increased KDIGO. (2013). KDIGO 2012 Clinical Practice Guideline for the Evaluation and Management of Chronic Kidney Disease. Official Journal of the International Society of Nephrology, 3(1), 1-150. Performed By: #### UACR, 289 0-2, 35576-5, UUNR, 15127-4 #### [facility] CLIA [id number] [address] [place], [place] [id number] [place] ALBUMIN/CREATININE RATIO, URINE Collect ed: 12/11/2024 2:19 AM Status: F Source: [facility] Order Comment: Specimen Type : URINE SPECIMEN Ordering Facility: [facility] Address: [address] [place] [address] TYPE CODE TESTS RESULT OUT OF RANGE REFERENCE UNITS LAB 2161-8(LOINC) Creat Ur-mCnc 31.1 20.0-300.0 m g/dL LAB 98383-1(LOINC ) Microalbumin Ur-mCnc 23.5 mg/L LAB 9318-7(LOINC) Albumin/Creat Ur 76 High <30 mg/g Result Comment: Adult Male a nd Female Nephrotic Criteria: <30 mg/g is considered normal to mildly increased 30-300 mg/g is considered moderately increased >300 mg/g is considered severely increased KDIGO. (2013). KDIGO 2012 Clinical Practice Guideline for the Evaluation and Management of Chronic Kidney Disease. Official Journal of the International Society of Nephrology, 3(1), 1-150. Performed By: #### UACR, 289 0-2, 18310-7, UUNR, 69430-1 #### [facility] CLIA [id number] [facility] [address] [address] [place] SODIUM ?TM UR-SCNC Collected: 12/11/2024 2:19 AM Sta tus: F Source: [facility] Order Comment: Specimen Type : URINE SPECIMEN Ordering Facility: [facility] Address: [address] [place] [address] TYPE CODE TESTS RESULT OUT OF RANGE REFERENCE UNITS LAB 56116-1(LOINC) Sodium ?Tm Ur-sCnc 67 14-216 mmol/L Performed By: #### UACR, 289 0-2, 93794-9, UUNR, 43001-0 #### [facility] CLIA [id number] [address] [place] [address] [place] UREA NITROGEN, RANDOM URINE Collected: 12/11/2024 2:1 9 AM Status: F Source: [facility] Order Comment: Specimen Type : URINE SPECIMEN Ordering Facility: [facility] Address: [address] [place] [address] TYPE CODE TESTS RESULT OUT OF RANGE REFERENCE UNITS LAB UUNR UREA NITROGEN,UR,R AN [phone] mg/dL Performed By: #### UACR, 289 0-2, 36973-5, UUNR, 37858-2 #### [facility] CLIA [id number] [address] [place] [id number] [place] URINALYSIS, REFLEX MICROSCOPIC Collected: 12/11/2024 2:19 AM Status: F Source: [facility] Order Comment: Specimen Type : URINE SPECIMEN Ordering Facility: [facility] Address: [address] [place] [address] TYPE CODE TESTS RESULT OUT OF RANGE REFERENCE UNITS LAB 5778-6(LOINC) Color Ur Yellow Yellow LAB 45862-1(LOINC) Clarity Spec Clear Clear LAB 5792-7(LOINC) Glucose Ur Strip-mCnc Negative Negative LAB 5770-3(LOINC) Bilirub Ur Ql Strip Negative Negative LAB 2514-8(LOINC) Ketones Ur Strip Negative Negative LAB 5811-5(LOINC) Sp Gr Ur Strip 1.010 1.005-1.030 LAB 5794-3(LOINC) Hgb Ur Ql Strip Negative Negative LAB 5803-2(LOINC) pH Ur Strip 6.5 5.0-8.0 LAB 5804-0(LOINC) Prot Ur Strip-mCnc Negative Negative LAB 5818-0(LOINC) Urobilinogen Ur Strip 0.2 EU/dL 0.2-1.0 EU/dL LAB 5802-4(LOINC) Nitrite Ur Ql Strip Negative Negative LAB 5799-2(LOINC) Leukocyte esterase Ur Ql Strip Negative Negative Performed By: #### [id number] # ### [facility] CLIA [id number] [address] CNPN Observed: 12/11/2024 12:00 AM Status: COMPLETED Source: [facility] Telephone (4CQ) BERTA SANCHES ([id number]) 1945 [address] [facility] Date Time Provider Department 12/11/24 DEYSI NICHOLSON 4CQ During your visit today, we recorded the following information about you: Marilyn Cesar 12/11/2024 11:06 AM Signed Patient called to cancel hospital follow up due to re admission yesterday 12/10/2024 Abdi Rivera LPN 12/11/2024 11:15 AM Signed Pt re admitted to [facility]. GOPI Hill Christy, APRN.JASPREET 12/11/2024 1:06 PM Signed Noted. Deysi Nicholson APRN.JASPREET Allergies As of Date: 12/11/2024 Noted Allergy Reaction PROTAMINE 01/12/2022 10 - Anaphylaxis Comments: Had acute drop in blood pressure and end tidal Co2 shortly after administration during watchman procedure on 01/12/22, treated with 60 mcg epinephrine and 10 mg dexamethasone with good response. PROPOFOL 04/07/2023 14 - Other: See Comments Comments: Hypotension Date Reviewed: 12/11/2024 Reviewed by: Lizeth Jordan RN - Fully Assessed Prescriptions as of 12/11/2024 - aspirin 81 mg chewable tablet Take 1 tablet by mouth once daily. - atorvastatin (LIPITOR) 40 mg tablet Take 1 tablet by mouth once daily. - clopidogrel (PLAVIX) 75 mg tablet Take 1 tablet by mouth once daily. - pantoprazole DR (PROTONIX) 40 mg tablet Take 1 tablet by mouth once daily. - spironolactone (ALDACTONE) 25 mg tablet Take 1 tablet by mouth two times a day. - torsemide (DEMADEX) 20 mg tablet Take 1 tablet by mouth two times a day. - metoprolol succinate ER (TOPROL XL) 50 mg 24 hr tablet Take 1 tablet by mouth two times a day. - potassium chloride (K-TAB) 10 mEq tablet Take 1 tablet by mouth once daily. - Blood Pressure Monitor (BLOOD PRESSURE KIT) 1 Each once daily. - acetaminophen (TYLENOL) 500 mg tablet Take 1-2 tablets by mouth every 6 hours as needed. - blood sugar diagnostic (BLOOD GLUCOSE TEST) test strip Test blood sugar(s) 2 times daily. Dx: Type 2 DM - Controlled E11.9 Insulin: No Facility-Administered Medications as of 12/11/2024 - potassium chloride ER 40 mEq tab(s) (KLOR-CON) - psyllium 1 packet (METAMUCIL) - clopidogrel 75 mg tab(s) (PLAVIX) - ferric gluconate 250 mg in NaCl 0.9% 100 mL (FERRLECIT) - aspirin 81 mg chewable tab(s) - atorvastatin 40 mg tab(s) (LIPITOR) - metoprolol succinate ER 50 mg tab(s) (TOPROL XL) - pantoprazole DR 40 mg tab(s) (PROTONIX) - spironolactone 12.5 mg tab(s) (ALDACTONE) - NaCl 0.9% iv flush bag - prochlorperazine 10 mg injection (COMPAZINE) - melatonin 3 mg tab(s) - benzocaine-menthol 1 lozenge (CEPACOL) - benzonatate 100 mg cap(s) (TESSALON PERLE) - polyethylene glycol 3350 17 g packet - calcium carbonate 1,000 mg chewable tab(s) (TUMS) - acetaminophen 1,000 mg tab(s) (TYLENOL) - oxyCODONE IR 5 mg tab(s) (ROXICODONE) - ipratropium-albuterol 3 mL nebulizer solution (DUONEB) - furosemide 40 mg injection (LASIX) - dapagliflozin propanediol 10 mg tab(s) (FARXIGA) Problem List As Of Date 12/11/2024 Noted Resolved History of prosthetic aortic valve replacement *10/10/2013 Aortic prosthetic valve regurgitation [T82.897A]10/10/2013 Paroxysmal atrial fibrillation (HCC) [I48.0] 10/10/2013 04/11/2023 HTN (hypertension) [I10] 10/10/2013 Hyperlipidemia with target LDL less than 70 [E7*11/20/2013 Type 2 diabetes mellitus without complication, *11/20/2013 09/12/2021 GERD (gastroesophageal reflux disease) [K21.9] 11/20/2013 Chronic anticoagulation [Z79.01] 11/20/2013 Fatigue [R53.83] 11/20/2013 SOB (shortness of breath) [R06.02] 11/20/2013 11/12/2023 H/O rheumatic heart disease [Z86.79] 11/20/2013 SUMMARY [V999.95] 12/09/2013 12/22/2018 Carotid artery disease (HCC) [I77.9] 12/09/2013 09/12/2021 Routine health maintenance [Z00.00] 01/08/2014 09/12/2021 Basal cell carcinoma [C44.91] 01/08/2014 Left shoulder pain [M25.512] 02/26/2014 Abdominal pain [R10.9] 02/26/2014 03/21/2022 Intracranial aneurysm [I67.1] 08/30/2015 10/05/2022 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 09/12/2021 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] 11/19/2016 12/22/2018 Bilateral carotid artery stenosis [I65.23] 11/26/2016 Osteopenia of left lower leg [M85.862] 11/26/2016 Mastoiditis of right side [H70.91] 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] Personal history of colonic polyps [Z86.0100] 01/06/2017 Aortic stenosis [I35.0] 01/06/2017 12/22/2018 History of ischemic colitis [Z87.19] 01/06/2017 Adenomatous polyp of descending colon [D12.4] 01/06/2017 Skin cancer [C44.90] 01/06/2017 PAD (peripheral artery disease) (HCC) [I73.9] 01/06/2017 Pedro aneurysm of anterior communicating artery* Stage 3 chronic renal impairment associated wit*03/11/2017 Other chest pain [R07.89] 03/27/2019 09/19/2020 History of pulmonary embolism [Z86.711] 03/27/2019 Ascending aorta dilatation (HCC) [I77.810] 03/27/2019 Chronic bilateral pleural effusions [J90] 03/27/2019 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] 06/15/2019 Right renal mass [N28.89] 06/16/2019 Diverticulitis of large intestine with perforat*06/16/2019 09/12/2021 Diverticulitis large intestine w/o perforation *07/18/2019 Renal cell carcinoma, right (HCC) [C64.1] 10/17/2019 Iron deficiency anemia [D50.9] 10/24/2019 Anemia due to GI blood loss [D50.0] 10/24/2019 03/22/2022 Renal cell carcinoma (HCC) [C64.9] 10/24/2019 09/12/2021 Hypomagnesemia [E83.42] 10/26/2019 Gastrointestinal hemorrhage associated with acu*02/15/2020 Esophageal stenosis [K22.2] 10/28/2019 Dilated cardiomyopathy (HCC) [I42.0] 03/22/2020 Acute on chronic combined systolic and diastoli*09/19/2020 11/12/2023 SSS (sick sinus syndrome) (HCC) [I49.5] 10/21/2020 Encounter for support and coordination of trans*02/15/2021 09/12/2021 Duodenal ulcer [K26.9] 05/20/2021 Type 2 diabetes mellitus with diabetic peripher*09/12/2021 Atrial fibrillation (HCC) [I48.91] 01/12/2022 04/11/2023 Melena [K92.1] 02/22/2022 02/24/2022 Acute kidney injury (HCC) [N17.9] 02/22/2022 02/24/2022 Acute on chronic systolic heart failure (HCC) [*03/19/2022 03/22/2022 Longstanding persistent atrial fibrillation (HC*03/20/2022 S/P placement of cardiac pacemaker [Z95.0] 03/20/2022 CKD (chronic kidney disease) [N18.9] 03/21/2022 Platelet inhibition due to Plavix [Z79.02] 03/21/2022 Diverticulosis [K57.90] 03/21/2022 Lung nodule, solitary [R91.1] 03/22/2022 Red blood cell antibody positive [R76.8] 03/23/2022 Iron 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 *04/07/2022 Iron malabsorption [K90.9] 04/07/2022 Chronic renal failure, stage 3b (HCC) [N18.32] 04/15/2022 Spondylolisthesis at L4-L5 level [M43.16] 07/07/2022 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 Acute on chronic diastolic congestive heart karina*11/09/2023 Acute on chronic diastolic CHF (congestive hear*12/10/2024 Encounter Status:Closed by DEYSI NICHOLSON on 12/11/24 CONSULT Observed: 12/10/2024 7:30 PM Status: COMPLETED Source: [facility] ID: [id number] Author: BETSY HALL MD Service: Nephrology Author Type: Physician Type: Consults Filed: 12/10/2024 19:42 Note Text: INPATIENT INITIAL NEPHROLOGY CONSULT SERVICE DATE: 12/10/2024 SERVICE TIME: 7:30 PM REASON FOR CONSULT: MONIQUE/ CRS REQUESTING PHYSICIAN: Dr Tuttle PRIMARY CARE PHYSICIAN: Deysi Nicholson APRN.CNP CC: SOB and edema Subjective Ms. Sanches is a 79 year old female with past medical history significant for : Atrial fibrillation status post Watchman procedure and pacemaker placement, type 2 diabetes, recent SMA occlusion status post mesenteric angiogram angioplasty of STEMI and stenting and high-grade stenosis of the right common femoral artery with angioplasty, heart failure with preserved ejection fraction, previous history of pneumonia, history of mastoiditis of her right side and status post mastoidectomy, mitral valve regurgitation, history of rheumatic fever, GERD, sick sinus syndrome status post pacemaker, history of ischemic colitis, history of aortic valve replacement who presented with worsening shortness of breath edema. Also had significant weight gain. Denies any nausea vomiting diarrhea. Stated that she is following low sodium diet at home. Patient was compliant with her diuretic therapy. Chest x-ray negative for any acute abnormality workup revealed hyponatremia sodium was 131 mmol/L previous history of hyponatremia sodium runs between 127. Sodium was low as 122-November 2024. Hyperlipidemia on aspirin atorvastatin and Plavix Hypertension and atrial fibrillation on metoprolol XL 50 mg daily Aldactone 25 mg twice a day KCl 10 mEq once a day and torsemide 1 tablet daily Regards to renal history recent MONIQUE secondary to ATN requiring DIRECT RESPONSE CONSULTANT with subsequent renal recovery hemodialysis catheter was removed on 10/07/2024. Previous baseline creatinine was 1.2 but now running around 1.7 to 1.8 mg deciliter. 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 Aaron [facility] Bilateral carotid artery stenosis 11/26/2016 05/27/16 moderate 50-69% stenosis right and left Bilateral pneumonia 07/20/2015 Cancer of cervix (HCC) Cervical cancer (HCC) 1973 Chest pain 06/01/2015 negative work up with nuclar stress CHF (congestive heart failure) (HCC) Cholesteatoma of right ear surgical removal Chronic mastoiditis of left side Chronic renal failure, stage 3b (HCC) 04/15/2022 Diabetes (HCC) Diabetes (HCC) GERD (gastroesophageal reflux disease) H/O: GI bleed High blood pressure Hypercholesterolemia Mastoiditis of right side s/p mastoidectomy, complete opacitificationright tympanic cavity and mastoid cells on CT 06/01/16 Mitral valve regurgitation Pacemaker 10/21/[address] TRELL VERNON [id number] pulse generator, his bundle lead, right atrial lead Peripheral arterial disease Rheumatic fever Steatosis, liver 03/26/2014 fatty liver on US. 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 Lua PACEMAKER 10/2019 PART. HYSTERECTOMY W/WO RMVL OVARIES/TUBES 1974 h/o cervical cancer ovaries remain PAST SURGICAL HISTORY OF 1996 Aortic valve repair, Dr. Apodaca PAST SURGICAL HISTORY OF 2001 [address] Beltrán, [facility] PAST SURGICAL HISTORY OF 2015 clipping and coil for brain aneurysm FAMILY HISTORY Problem Relation Age of Onset other (Heart Problems) Mother other (myocardial infarction) Mother other (cardiovascular disease) Mother other (Heart Attack) Father other (cardiovascular disease) Father Diabetes Maternal Grandmother Social History Tobacco Use Smoking status: Former Current packs/day: 0.00 Average packs/day: 0.3 packs/day for 2.0 years (0.5 ttl pk-yrs) Types: Cigarettes Start date: 1965 Quit date: 1967 Years since quittin.4 Smokeless tobacco: Never Vaping Use Vaping status: Never Used Substance Use Topics Alcohol use: Not Currently Alcohol/week: 1.0 standard drink of alcohol Types: 1 Glasses of Wine (5oz) per week Comment: red wine 2-3 times a week- occasional Drug use: No Prior to Admission Medications Prescriptions Last Dose Informant Patient Reported? Taking? Blood Pressure Monitor (BLOOD PRESSURE KIT) No No Si Each once daily. acetaminophen (TYLENOL) 500 mg tablet 12/08/2024 No No Sig: Take 1-2 tablets by mouth every 6 hours as needed. aspirin 81 mg chewable tablet 12/09/2024 No Yes Sig: Take 1 tablet by mouth once daily. atorvastatin (LIPITOR) 40 mg tablet 12/09/2024 No Yes Sig: Take 1 tablet by mouth once daily. blood sugar diagnostic (BLOOD GLUCOSE TEST) test strip No No Sig: Test blood sugar(s) 2 times daily. Dx: Type 2 DM - Controlled E11.9 Insulin: No clopidogrel (PLAVIX) 75 mg tablet 12/09/2024 No Yes Sig: Take 1 tablet by mouth once daily. metoprolol succinate ER (TOPROL XL) 50 mg 24 hr tablet 12/09/2024 No Yes Sig: Take 1 tablet by mouth two times a day. pantoprazole DR (PROTONIX) 40 mg tablet 12/09/2024 No Yes Sig: Take 1 tablet by mouth once daily. potassium chloride (K-TAB) 10 mEq tablet 12/09/2024 No Yes Sig: Take 1 tablet by mouth once daily. spironolactone (ALDACTONE) 25 mg tablet 12/09/2024 Yes Yes Sig: Take 1 tablet by mouth two times a day. torsemide (DEMADEX) 20 mg tablet 12/09/2024 No Yes Sig: Take 1 tablet by mouth two times a day. Facility-Administered Medications: None Current Facility-Administered Medications Medication Dose Route Frequency metoprolol succinate ER 50 mg tab(s) (TOPROL XL) 50 mg ORAL BID spironolactone 12.5 mg tab(s) (ALDACTONE) 12.5 mg ORAL BID furosemide 40 mg injection (LASIX) 40 mg INTRAVENOUS BID 9a/5p NaCl 0.9% iv flush bag 20 mL INTRAVENOUS PRN prochlorperazine 10 mg injection (COMPAZINE) 10 mg INTRAVENOUS q 6 H PRN melatonin 3 mg tab(s) 3 mg ORAL AT BEDTIME PRN benzocaine-menthol 1 lozenge (CEPACOL) 1 lozenge MUCOUS MEMBRANE (TOPICAL MOUTH AND THROAT) q 2 H PRN benzonatate 100 mg cap(s) (TESSALON PERLE) 100 mg ORAL TID PRN polyethylene glycol 3350 17 g packet 17 g ORAL DAILY PRN calcium carbonate 1,000 mg chewable tab(s) (TUMS) 1,000 mg ORAL TID PRN acetaminophen 1,000 mg tab(s) (TYLENOL) 1,000 mg ORAL q 6 H PRN oxyCODONE IR 5 mg tab(s) (ROXICODONE) 5 mg ORAL q 4 H PRN ipratropium-albuterol 3 mL nebulizer solution (DUONEB) 3 mL INHALATION q 4 H PRN Allergies As of Date: 12/10/2024 Allergen Noted Reaction PROTAMINE 01/12/2022 Anaphylaxis PROPOFOL 04/07/2023 Other: See Comments Fully Assessed 12/10/2024 COMPLETE REVIEW OF SYSTEMS: GENERAL: No weight loss, malaise or fevers HEENT: Negative for frequent or significant headaches RESPIRATORY: Negative for cough, hemoptysis, wheezing, or shortness of breath CARDIOVASCULAR: Negative for chest pain, leg swelling, or palpitations GI: No nausea, vomiting, or diarrhea : No history of dysuria, frequency or incontinence MUSCULOSKELETAL: Negative for joint pain or swelling, back pain or muscle pain SKIN: Negative for lesions, rash, and itching PSYCH: Negative for sleep disturbance, mood disorder and recent psychosocial stressors NEURO: No history of headaches, syncope, paralysis, seizures or tremors Objective PHYSICAL EXAM: GENERAL: Alert, no distress, cooperative SKIN: Skin color, texture, turgor normal. No rashes or lesions. HEAD/SINUSES: No significant findings EYES: PE OROPHARYNX: oral mucosa moist. Oropharynx normal. NECK: No jugulovenous distention, No carotid bruits, Supple LUNGS: Lungs clear to auscultation, no wheeze, rhonchi, or rales CARDIAC: Normal S1 and S2; no rubs, murmurs, or gallops ABDOMEN: Abdomen soft, non-tender, BS normal, No masses. No abdominal bruits. EXTREMITIES: Normal exam of the extremities. NEURO: No focal deficits. Able to move all 4 extremities. PULSES: 2+ radial, 2 + femoral Patient Vitals for the past 24 hrs: BP Temp Temp src Pulse Resp SpO2 Height Weight 12/10/24 1921 157/52 36.7 ?C (98.1 ?F) Oral 91 16 98 % -- -- 12/10/24 1429 -- -- -- -- -- -- -- 66.5 kg (146 lb 9.7 oz) 12/10/24 1427 151/52 37 ?C (98.6 ?F) Oral 80 18 100 % 157.5 cm (5' 2") 66.5 kg (146 lb 9.7 oz) 12/10/24 1345 174/72 -- -- 76 -- 97 % -- -- 12/10/24 1330 157/68 -- -- 81 -- 98 % -- -- 12/10/24 1320 177/72 -- -- 82 -- 100 % -- -- 12/10/24 1245 167/69 -- -- 80 -- 97 % -- -- 12/10/24 1230 171/74 -- -- 81 -- 98 % -- -- 12/10/24 1200 167/72 -- -- 81 -- 98 % -- -- 12/10/24 1145 167/65 -- -- 82 -- 99 % -- -- 12/10/24 1115 174/71 -- -- 81 -- 98 % -- -- 12/10/24 1100 149/64 -- -- 79 -- 98 % -- -- 12/10/24 1045 154/67 -- -- 83 -- 97 % -- -- 12/10/24 1015 158/64 -- -- 81 -- 98 % -- -- 12/10/24 1010 172/70 -- -- 82 -- 98 % -- -- 12/10/24 0945 151/65 -- -- 82 -- 98 % -- -- 12/10/24 0915 164/63 -- -- 81 -- 98 % -- -- 12/10/24 0900 145/60 -- -- 82 -- 98 % -- -- 12/10/24 0845 164/70 -- -- 80 -- 97 % -- -- 12/10/24 0815 146/66 -- -- 81 -- 98 % -- -- 12/10/24 0800 136/60 -- -- 79 -- 97 % -- -- 12/10/24 0750 146/65 -- -- 80 -- 97 % -- -- 12/10/24 0720 (!) 143/45 36.3 ?C (97.4 ?F) Temporal 83 19 100 % 157.5 cm (5' 2") 65.8 kg (145 lb) Body mass index is 26.81 kg/m?. DATA: Diagnostic tests reviewed for today's visit: Most recent labs and imaging results. CBC: Recent Labs 12/10/24 0750 WBC 8.21 RBC 2.88* HB 8.2* HCT 26.5* PLT 168 MCV 92.0 MCH 28.5 MPV 10.5 Coags: No results for input(s): "PT", "INR", "APTT" in the last 24 hours. CMP: Recent Labs 12/10/24 0750 NA 131* K 4.2 CHLOR 98 CO2 20* BUN 63* CREAT 1.90* GLUC 140* TPROT 7.3 CA 9.0 MG 1.9 TBILI 0.8 ALKPHOS 139* ALT 12 AST 27 ANION 13 ABG's: No results for input(s): "PH", "PCO2", "PO2", "BE", "HCO3", "CO2CT", "O2HB", "COHB", "MHGB", "TEMP", "PHTC", "PCO2T", "PO2T", "O2AD" in the last 24 hours. MG/PHOS: Recent Labs 12/10/24 0750 MG 1.9 pH, Urine Date Value Ref Range Status 03/21/2022 7.0 5.0 - 8.0 Final Specific [place], Ur Date Value Ref Range Status 03/21/2022 1.010 1.005 - 1.030 Final Glucose, Urine Date Value Ref Range Status 03/21/2022 Negative Negative Final Bilirubin, Urine Date Value Ref Range Status 03/21/2022 Negative Negative Final Ketones, Urine Date Value Ref Range Status 03/21/2022 Negative Negative Final Hemoglobin/Blood,Ur Date Value Ref Range Status 03/21/2022 Negative Negative Final Protein, Urine Date Value Ref Range Status 03/21/2022 Negative Negative Final Urobilinogen Date Value Ref Range Status 03/21/2022 0.2 EU/dL 0.2-1.0 EU/dL Final Nitrites Date Value Ref Range Status 03/21/2022 Negative Negative Final WBC, Urine Date Value Ref Range Status 03/21/2022 0-5 /HPF 0-5 /HPF Final Albumin/Creat Ratio Date Value Ref Range Status 07/07/2024 34 (H) <30 mg/g Final Comment: Adult Male and Female Nephrotic Criteria: <30 mg/g is considered normal to mildly increased 30-300 mg/g is considered moderately increased >300 mg/g is considered severely increased KDIGO. (2013). KDIGO 2012 Clinical Practice Guideline for the Evaluation and Management of Chronic Kidney Disease. Official Journal of the International Society of Nephrology, 3(1), 1-150. Protein, Urine Date Value Ref Range Status 03/21/2022 Negative Negative Final Creatinine Date Value Ref Range Status 12/10/2024 1.90 (H) 0.58 - 0.96 mg/dL Final Hemoglobin A1C (%) Date Value 07/07/2024 6.9 12/11/2020 7.0 Albumin (g/dL) Date Value 12/10/2024 3.8 02/18/2021 3.9 Cholesterol, Total (mg/dL) Date Value 02/03/2024 98 12/11/2020 156 HDL Cholesterol (mg/dL) Date Value 02/03/2024 34 12/11/2020 57 LDL Cholesterol, Calculated (mg/dL) Date Value 02/03/2024 51 12/11/2020 76 Triglyceride (mg/dL) Date Value 02/03/2024 67 12/11/2020 117 Impression/Recommendations 1. Acute kidney injury on chronic kidney disease stage III (baseline creatinine 1.5 to 1.8 mg deciliter) likely in a cardiorenal syndrome. Patient with a previous history of ATN requiring hemodialysis and dialysis catheter was removed on 10/07/2024 2. Hypervolemic hyponatremia 3. Hypokalemia 4. Metabolic acidosis 5. Acute on chronic diastolic congestive heart failure, proBNP 12,509, significant bilateral lower extremity 6. Anemia rule out iron deficiency 7. Proteinuria 8. Atrial fibrillation status post Watchman procedure also history of pacemaker placement 9. Valvular heart disease status post aortic valve replacement 10. Type 2 diabetes 11. GERD Plan of management --Increase Lasix 40 mg IV every 8 hours --Check urine analysis, urine sodium and urine creatinine --Check urine osmolality --Daily standing weight --2 g salt diet --Fluid restriction 1500 mL/day --Monitor renal function and electrolytes --Add Farxiga 10 mg p.o. daily --Continue Aldactone 12.5 mg p.o. twice daily -- Previous record from [place] reviewed in detail. -- Kidney ultrasound from 10/04/2024 reviewed. Significantly increased velocity in proximal left renal artery suggestive of left renal artery stenosis -- Repeat kidney ultrasound and renal artery duplex Thank you for the consult and involving me in the patients care. I will continue to follow and co-manage the patient along with you during their hospital stay. Betsy Hall MD SIGNATURE: Betsy Hall MD PATIENT NAME: Berta Sanches DATE: December 10, 2024 TIME: 7:30 PM HISTORY PHYSICAL Observed: 12/10/2024 1:42 PM Status: COMPLETED Source: [facility] HNO ID: [id number] Author: JUAN DIEGO BYRD MD Service: Hospital Medicine Author Type: Physician Type: H&P Filed: 12/10/2024 13:50 Note Text: HISTORY AND PHYSICAL EXAMINATION PRIMARY CARE PHYSICIAN: Deysi Nicholson APRN.MINCEMEAT MAKER HPI: 79 yo woman with hx of afib s/p watchman, D-CHF, former DM2, GERD, SSS s/p pacemaker, hx of ischemic colitis, hx of AVR, presenting with progressive SOB and leg swelling/weight gain over past several days without fevers chills sputum pleuritic pain or chest pain. 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 Aaron [facility] Bilateral carotid artery stenosis 11/26/2016 05/27/16 moderate 50-69% stenosis right and left Bilateral pneumonia 07/20/2015 Cancer of cervix (HCC) Cervical cancer (HCC) 1973 Chest pain 06/01/2015 negative work up with nuclar stress CHF (congestive heart failure) (HCC) Cholesteatoma of right ear surgical removal Chronic mastoiditis of left side Chronic renal failure, stage 3b (HCC) 04/15/2022 Diabetes (HCC) Diabetes (HCC) GERD (gastroesophageal reflux disease) H/O: GI bleed High blood pressure Hypercholesterolemia Mastoiditis of right side s/p mastoidectomy, complete opacitificationright tympanic cavity and mastoid cells on CT 06/01/16 Mitral valve regurgitation Pacemaker 10/21/[address] TRELL VERNON [id number] pulse generator, his bundle lead, right atrial lead Peripheral arterial disease Rheumatic fever Steatosis, liver 03/26/2014 fatty liver on US. 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 Lua PACEMAKER 10/2019 PART. HYSTERECTOMY W/WO RMVL OVARIES/TUBES 1974 h/o cervical cancer ovaries remain PAST SURGICAL HISTORY OF 1996 Aortic valve repair, Dr. Apodaca PAST SURGICAL HISTORY OF 2001 [address] Beltrán, [facility] PAST SURGICAL HISTORY OF 2016 clipping and coil for brain aneurysm FAMILY HISTORY Problem Relation Age of Onset other (Heart Problems) Mother other (myocardial infarction) Mother other (cardiovascular disease) Mother other (Heart Attack) Father other (cardiovascular disease) Father Diabetes Maternal Grandmother Social History Tobacco Use Smoking status: Former Current packs/day: 0.00 Average packs/day: 0.3 packs/day for 2.0 years (0.5 ttl pk-yrs) Types: Cigarettes Start date: 1965 Quit date: 1967 Years since quittin.4 Smokeless tobacco: Never Vaping Use Vaping status: Never Used Substance Use Topics Alcohol use: Not Currently Alcohol/week: 1.0 standard drink of alcohol Types: 1 Glasses of Wine (5oz) per week Comment: red wine 2-3 times a week- occasional Drug use: No (Not in a hospital admission) ALLERGIES Allergen Reactions Protamine Anaphylaxis Had acute drop in blood pressure and end tidal Co2 shortly after administration during watchman procedure on 01/12/22, treated with 60 mcg epinephrine and 10 mg dexamethasone with good response. Propofol Other: See Comments Hypotension REVIEW OF SYSTEMS: Review of Systems Respiratory: Positive for shortness of breath. Cardiovascular: Negative for chest pain. Gastrointestinal: Negative for abdominal pain. EXAM: BP 174/72 Pulse 76 Temp 36.3 ?C (97.4 ?F) (Temporal) Resp 19 Ht 157.5 cm (5' 2") Wt 65.8 kg (145 lb) SpO2 97% BMI 26.52 kg/m? Body mass index is 26.52 kg/m?. Physical Exam Cardiovascular: Rate and Rhythm: Normal rate. Pulmonary: Effort: Pulmonary effort is normal. Breath sounds: No wheezing or rhonchi. Musculoskeletal: General: Swelling present. Neurological: Mental Status: She is oriented to person, place, and time. DATA: Cat 1: BMP CBC trop reviewed Cat 2: EKG Personally reviewed. Afib with PVC. No acute ST-T changes. Some lateral T wave inversion in lead 1 likely from LVH Assessment: Ms. Sanches, your 79 years have been affected by afib s/p watchman, D-CHF, former DM2, GERD, SSS s/p pacemaker, hx of ischemic colitis, hx of AVR, CKD3. You presented to the hospital with progressive SOB likely from acute on chronic D-CHF. Jc hutchins with IV lasix Already had echo 10/03/24. I don't think she needs another one now. Hyponatremia likely hypervolemic. eGFR not far from ~1 month ago. Active Hospital Problems Diagnosis Date Noted Acute on chronic diastolic CHF (congestive heart failure) (HCC) 12/10/2024 Acute on chronic diastolic congestive heart failure (HCC) 11/09/2023 Risk: Hospitalized for organ threatening disease (acute on chronic CHF) Leg blood clot prevention : low risk Code status: full SIGNATURE: Juan Diego Byrd MD DATE: 12/10/2024 TIME: 1:50 PM HIGH SENSITIVITY TROPONIN T (THIRD) 3 HRS AFTER INITIAL Collected: 12/10/2024 11:09 AM Status: F Source: [facility] Order Comment: Specimen Type : BLOOD SPECIMEN Ordering Facility: [facility] Address: [facility] [place] [address] TYPE CODE TESTS RESULT OUT OF RANGE REFERENCE UNITS LAB 95762-2(LOINC) Troponin T SerPl HS-mCnc 63 High <12 ng/L Performed By: #### [id number] # ### [facility] CLIA [id number] [address] [place] [address] [facility] ED PROV NOTE Observed: 12/10/2024 9:24 AM Status: COMPLETED Source: [facility] HNO ID: [id number] Author: TRISH MANRIQUE DO Service: Emergency Medicine Author Type: Physician Type: ED Provider Notes Filed: 12/10/2024 15:32 Note Text: ED Provider Note Patient Name: Berta Sanches : 1945 SERVICE DATE: 12/10/24 History Patient presents with: Shortness of Breath: Presents to ED with worsening SOB with associated BLE edema with no relief from torsemide for the past three weeks. orthopnea HPI 79-year-old female PMH hypertension, hyperlipidemia, valvular heart disease s/p aortic valve replacement, history of brain emergency room s/p coiling, SSS s/p pacemaker, A-fib s/p watchman 2021, DM presents today for edema, shortness of breath, CRAWLEY. Patient states that she was recently admitted for CHF. States that she has been attempting to treat outpatient with Lasix but still feels short of breath and feels like she has edema. Denies any chest pain, Lenard pain, nausea, vomiting, fever, chills, syncope, LOC, focal weakness or numbness, headaches, vision changes. Patient's at bedside states that patient has otherwise been at mental status baseline. 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 Aaron [facility] Bilateral carotid artery stenosis 11/26/2016 05/27/16 moderate 50-69% stenosis right and left Bilateral pneumonia 07/20/2015 Cancer of cervix (HCC) Cervical cancer (HCC) 1973 Chest pain 06/01/2015 negative work up with nuclar stress CHF (congestive heart failure) (HCC) Cholesteatoma of right ear surgical removal Chronic mastoiditis of left side Chronic renal failure, stage 3b (HCC) 04/15/2022 Diabetes (HCC) Diabetes (HCC) GERD (gastroesophageal reflux disease) H/O: GI bleed High blood pressure Hypercholesterolemia Mastoiditis of right side s/p mastoidectomy, complete opacitificationright tympanic cavity and mastoid cells on CT 06/01/16 Mitral valve regurgitation Pacemaker 10/21/[address] TRELL VERNON [id number] pulse generator, his bundle lead, right atrial lead Peripheral arterial disease Rheumatic fever Steatosis, liver 03/26/2014 fatty liver on US. 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 Lua PACEMAKER 10/2019 PART. HYSTERECTOMY W/WO RMVL OVARIES/TUBES 1973 h/o cervical cancer ovaries remain PAST SURGICAL HISTORY OF 1996 Aortic valve repair, Dr. Apodaca PAST SURGICAL HISTORY OF 2001 [address] Beltrán, [facility] PAST SURGICAL HISTORY OF 2015 clipping and coil for brain aneurysm FAMILY HISTORY Problem Relation Age of Onset other (Heart Problems) Mother other (myocardial infarction) Mother other (cardiovascular disease) Mother other (Heart Attack) Father other (cardiovascular disease) Father Diabetes Maternal Grandmother Social History Tobacco Use Smoking status: Former Current packs/day: 0.00 Average packs/day: 0.3 packs/day for 2.0 years (0.5 ttl pk-yrs) Types: Cigarettes Start date: 1965 Quit date: 1968 Years since quittin.4 Smokeless tobacco: Never Vaping Use Vaping status: Never Used Substance and Sexual Activity Alcohol use: Not Currently Alcohol/week: 1.0 standard drink of alcohol Types: 1 Glasses of Wine (5oz) per week Comment: red wine 2-3 times a week- occasional Drug use: No Sexual activity: Yes Partners: Male ALLERGIES Allergen Reactions Protamine Anaphylaxis Had acute drop in blood pressure and end tidal Co2 shortly after administration during watchman procedure on 01/12/22, treated with 60 mcg epinephrine and 10 mg dexamethasone with good response. Propofol Other: See Comments Hypotension Review of Systems Constitutional: Negative for fatigue and fever. HENT: Negative for congestion. Respiratory: Positive for shortness of breath. Cardiovascular: Positive for leg swelling. Negative for chest pain. Gastrointestinal: Negative for abdominal pain, diarrhea, nausea and vomiting. Physical Exam Vitals [12/10/24 0720] BP Pulse Temp Temp src Resp SpO2 Weight Height (!) 143/45 83 36.3 ?C (97.4 ?F) Temporal 19 100 % 65.8 kg (145 lb) 1.575 m (5' 2") Physical Exam Constitutional: General: She is not in acute distress. Appearance: She is not ill-appearing, toxic-appearing or diaphoretic. HENT: Head: Normocephalic. Nose: Nose normal. Mouth/Throat: Mouth: Mucous membranes are moist. Eyes: Pupils: Pupils are equal, round, and reactive to light. Cardiovascular: Rate and Rhythm: Normal rate and regular rhythm. Pulses: Normal pulses. Pulmonary: Effort: Pulmonary effort is normal. No respiratory distress. Breath sounds: No wheezing. Comments: Short of breath on exertion. Minimal rhonchi in bilateral bases. No conversational dyspnea. Overall good air movement. Abdominal: Palpations: Abdomen is soft. Tenderness: There is no abdominal tenderness. There is no guarding. Comments: Soft and nontender in all quadrants Musculoskeletal: Right lower leg: Edema present. Left lower leg: Edema present. Comments: +2 BLE edema Skin: Capillary Refill: Capillary refill takes less than 2 seconds. Neurological: Mental Status: She is alert. Diagnostic Testing ED Labs Ordered and Reviewed COMPREHENSIVE METABOLIC PANEL - Abnormal; Notable for the following components: Result Value Ref Range Albumin 3.8 (*) 3.9 - 4.9 g/dL Alkaline Phosphatase 139 (*) 34 - 123 U/L Glucose 140 (*) 74 - 99 mg/dL BUN 63 (*) 7 - 21 mg/dL Creatinine 1.90 (*) 0.58 - 0.96 mg/dL Sodium 131 (*) 136 - 144 mmol/L CO2 20 (*) 22 - 30 mmol/L Estimated Glomerular Filtration Rate 27 (*) >=60 mL/min/1.73m? All other components within normal limits COMPLETE BLOOD COUNT AND DIFFERENTIAL - Abnormal; Notable for the following components: RBC 2.88 (*) 3.90 - 5.20 m/uL Hemoglobin 8.2 (*) 11.5 - 15.5 g/dL Hematocrit 26.5 (*) 36.0 - 46.0 % RDW-CV 16.2 (*) 11.5 - 15.0 % Abs Borden 1.19 (*) <0.87 k/uL All other components within normal limits HIGH SENSITIVITY TROPONIN T (INITIAL) - Abnormal; Notable for the following components: GLEN High Sensitivity 72 (*) <12 ng/L All other components within normal limits NT PRO BNP - Abnormal; Notable for the following components: NT Pro BNP 12,509 (*) <450 pg/mL All other components within normal limits HIGH SENSITIVITY TROPONIN T (SECOND) - Abnormal; Notable for the following components: GLEN High Sensitivity 66 (*) <12 ng/L All other components within normal limits HIGH SENSITIVITY TROPONIN T (THIRD) 3 HRS AFTER INITIAL - Abnormal; Notable for the following components: GLEN High Sensitivity 63 (*) <12 ng/L All other components within normal limits MAGNESIUM - Normal Results for orders placed or performed during the hospital encounter of 12/10/24 ECG COMPLETE Impression ATRIAL FIBRILLATION WITH PREMATURE VENTRICULAR OR ABERRANTLY CONDUCTED COMPLEXES LEFT AXIS DEVIATION LEFT VENTRICULAR HYPERTROPHY WITH QRS WIDENING ( R in aVL , Sunflower product ) T WAVE ABNORMALITY, CONSIDER LATERAL ISCHEMIA ABNORMAL ECG No Stemi Confirmed by TRISH MANRIQUE DO ([id number]) on 12/10/2024 3:12:25 PM Procedures ED Course / Clinical Impression ED Course as of 12/10/24 1532 Trish Manrique's Documentation Sun Dec 10, 2024 0919 CBC + DIFF(!): WBC 8.21 RBC 2.88(!) Hemoglobin 8.2(!) Hematocrit 26.5(!) MCV 92.0 MCH 28.5 MCHC 30.9 RDW-CV 16.2(!) Platelet Count 168 MPV 10.5 Neut% 50.7 Abs Neut (ANC) 4.17 Lymph% 30.7 Abs Lymph 2.52 Borden% 14.5 Abs Borden 1.19(!) Eosin% 2.6 Abs Eosin 0.21 Baso% 1.1 Abs Baso 0.09 Immature Gran % 0.4 IMMATURE GRANS (ABS) 0.03 NRBC 0.0 Absolute nRBC <0.01 DTYPE Auto Anemia baseline, no leukocytosis 0919 GLEN High Sensitivity(!): 72 0930 GLEN High Sensitivity(!): 66 1000 Paged hospitalist 1213 GLEN High Sensitivity(!): 63 1217 GLEN High Sensitivity(!): 63 1512 EKG: Heart rate 79, A-fib with PVC. No ST elevations consistent with SC. QTc 479. Nonspecific T wave changes. Clinical Impressions as of 12/10/24 1532 Congestive heart failure, unspecified HF chronicity, unspecified heart failure type (HCC) PAD (peripheral artery disease) Hyperlipidemia with target LDL less than 70 Shortness of breath MDM / Disposition / Plan Chart review: Seen 11/03/2024. By cardiology. Hx hypertension, hyperlipidemia, valvular heart disease s/p aortic valve replacement, history of brain aneurysm s/p coiling, SSS s/p pacemaker 10/2020, A-fib, s/p Watchman 2021, history of rectal bleeding, diabetes mellitus. Patient has a history of hospitalizations for SMA stenting, complicated by MONIQUE. Patient developed A-fib postoperatively placed on Amio drip and then converted History and Record Review : Patient's at bedside states that patient is otherwise at mental status baseline. External record(s) reviewed: prior outpatient record. Findings from review of outpatient records: See above Differential Diagnoses - Shortness of breath is more likely for the following reason(s): suggested by HANDP - CRAWLEY is more likely for the following reason(s): suggested by HANDP - CHF exacerbation is more likely for the following reason(s): suggested by HANDP and consistent with laboratory studies Management Management of the patient was discussed with:admitting team Discussion with admitting team included: Medicine agrees with admission Additional Tests or Interventions Additional tests/procedures: ECG Disposition The patient was admitted. Counseled patient and spouse regarding lab results, radiology results and suspected diagnosis. 79-year-old female PMH hypertension, hyperlipidemia, valvular heart disease s/p aortic valve replacement, history of brain emergency room s/p coiling, SSS s/p pacemaker, A-fib s/p watchman 2021, DM presents today for edema, shortness of breath, CRAWLEY. Patient arrives hemodynamically stable, saturating well on room air and in no acute distress. Patient was afebrile and overall nontoxic-appearing. Patient did appear to have edema. Patient did appear shortness of breath with ambulation in the department. Labs and imaging per above. BNP elevated. High-sensitivity troponins without significant delta. Low suspicion ACS this time. Patient does appear to be anemic however appears to be chronic based on prior labs. I do suspect that patient likely has slight CHF exacerbation. Given that patient has tried outpatient therapy and still feels short of breath/CRAWLEY, will admit for further workup and observation. Patient is comfortable with this at this time. Patient admitted. All questionsanswered at bedside. SIGNATURE: DO Caroline Vela KIRSTEN 12/10/24 1532 HIGH SENSITIVITY TROPONIN T (SECOND) Collected: 12/10/2024 8:57 AM Status: F Source: [facility] Order Comment: Specimen Type : BLOOD SPECIMEN Ordering Facility: [facility] Address: [address] [place] [address] TYPE CODE TESTS RESULT OUT OF RANGE REFERENCE UNITS LAB 91785-3(LOINC) Troponin T SerPl HS-mCnc 66 High <12 ng/L Performed By: #### [id number] # ### [facility] CLIA [id number] [address] [place] [address] [facility] Observed: 12/10/2024 8:10 AM Status: COMPLETED Source: [facility] HNO ID: [id number] Author: SHONDA CUNNINGHAM RT(R) Service: Radiology Author Type: Technologist Type: Allied Health Filed: 12/10/2024 08:10 Note Text: Radiology Service Progress Note PATIENT NAME: Berta Sanches DATE OF SERVICE: December 10, 2024 TIME: 8:10 AM PATIENT IDENTITY VERIFICATION COMPLETED USING TWO (2) IDENTIFIERS: Name and Date of confirmed by patient verbally. FALL SCREENING: Has the patient had 2 falls in the last year or 1 fall with injury or currently using an Ambulatory Assistive Device (Walker, Cane, Wheelchair, Crutches, etc.)? Emergency Room Patient: Screened in ED PATIENT GENDER DATA: Assigned female at . status: : No status: NO. PATIENT RELEVANT IMPLANT DATA REVIEWED: Not Applicable PATIENT PRESENTS WITH AN IMPLANTABLE OR ATTACHED [employer]IME [employer] OPERATOR HELPER: No RADIOLOGY DEPARTMENT: General X-ray: Exam(s) Completed: Chest X-Ray PERIPHERAL IV DATA: Not applicable SIGNED BY: RT Boyd(R) December 10, 2024 8:10 AM XR CHEST 1V FRONTAL PORT Observed: 12/10 8:09 AM Status: F Source: [facility] * * *Final Report* * * DATE OF EXAM: Dec 10 2024 8:09AM MDX [id number] - XR CHEST 1V FRONTAL PORT / PROCEDURE REASON: Shortness of breath * * * * Physician Interpretation * * * * EXAMINATION: CHEST RADIOGRAPH (PORTABLE SINGLE VIEW AP) Exam Date/Time: 12/10/2024 8:09 AM CLINICAL HISTORY: Shortness of breath MQ: XCPR_5 Comparison: Chest x-ray on 11/09/2023 RESULT: Lines, tubes, and devices: No change in position of left chest dual-chamber pacemaker. Lungs and pleura: The visualized bilateral lungs show no consolidations. No mass lesion identified. No large pleural effusions or pneumothorax. Cardiomediastinal silhouette: There is cardiomegaly/enlargement of the cardiac silhouette. Other: None. IMPRESSION: No acute radiographic abnormalities in the lungs. Cardiomegaly/enlargement of the cardiac silhouette. Supervisor Special Services: PSC[facility] Transcribe Date/Time: Dec 10 2024 8:28A Dictated by : KIERSTEN MONTENEGRO MD This examination was interpreted and the report reviewed and electronically signed by: KIERSTEN MONTENEGRO MD on Dec 10 2024 8:31AM EST [id number] ECG COMPLETE Observed: 12/10/2024 7:55 AM Status: F Source: [facility] Ventricular Rate : 79 BPM QRS Duration : 118 ms Q-T Interval : 418 ms QTC Calculation(Bazett) : 479 ms Calculated R [place] : -30 degrees Calculated T [place] : 161 degrees ATRIAL FIBRILLATION WITH PREMATURE VENTRICULAR OR ABERRANTLY CONDUCTED COMPLEXES LEFT AXIS DEVIATION LEFT VENTRICULAR HYPERTROPHY WITH QRS WIDENING ( R in aVL , Sunflower product ) T WAVE ABNORMALITY, CONSIDER LATERAL ISCHEMIA ABNORMAL ECG No Stemi Confirmed by TRISH MANRIQUE DO ([id number]) on 12/10/2024 3:12:25 PM NAME : BERTA SANCHES PID : [id number] : 1945 Gender : Female Race : ORD : [id number] Procedure Date : Dec 10 2024 07:55:48 Edit Date : Dec 10 2024 15:12:31 Diagnosis: ATRIAL FIBRILLATION WITH PREMATURE VENTRICULAR OR ABERRANTLY CONDUCTED COMPLEXES LEFT AXIS DEVIATION LEFT VENTRICULAR HYPERTROPHY WITH QRS WIDENING ( R in aVL , Sunflower product ) T WAVE ABNORMALITY, CONSIDER LATERAL ISCHEMIA ABNORMAL ECG No Stemi Confirmed by TRISH MANRIQUE DO ([id number]) on 12/10/2024 3:12:25 PM Test Reason : Chest Pain Location : 1 : ER ED Overread By : TRISH MANRIQUE DO Edited By : TRISH MANRIQUE DO Referred By : , Acquired by : [id number], CBC W AUTO DIFF BLD Collected: 12/10/2024 7:[address] atus: F Source: [facility] Order Comment: Specimen Type : BLOOD SPECIMEN Ordering Facility: [facility] Address: [address] [place] [address] TYPE CODE TESTS RESULT OUT OF RANGE REFERENCE UNITS LAB 6690-2(LOINC) WBC # Bld Auto 8.21 3.70-11.00 k/uL LAB 789-8(LOINC) RBC # Bld Auto 2.88 Low 3.90-5.20 m/ uL LAB 718-7(LOINC) Hgb Bld-mCnc 8.2 Low 11.5-15.5 g/dL LAB 4544-3(LOINC) Hct VFr Bld Auto 26.5 Low 36.0-46.0 % LAB 787-2(LOINC) MCV RBC Auto 92.0 80.0-100.0 fL LAB 785-6(LOINC) MCH RBC Qn Auto 28.5 26.0-34.0 p g LAB 786-4(LOINC) MCHC RBC Auto-mCnc 30.9 30.5-36.0 g/dL LAB 17695-8([facility]) RDW RBC-Rto 16.2 High 11.5-15.0 % LAB 777-3([facility]) Platelet # Bld Auto 168 150-400 k/uL LAB 25031-0([facility]) PMV Bld Auto 10.5 9.0-12.7 fL LAB 770-8([facility]) Neutrophils/leuk NFr Bld Auto 50.7 % LAB 751-8([facility]) Neutrophils # Bld Auto 4.17 1.45-7.50 k/uL LAB 736-9([facility]) Lymphocytes/leuk NFr Bld Auto 30.7 % LAB 731-0([facility]) Lymphocytes # Bld Auto 2.52 1.00-4.00 k/uL LAB 5905-5([facility]) Monocytes/leuk NFr Bld Auto 14.5 % LAB 742-7([facility]) Monocytes # Bld Auto 1.19 High <0.87 k/uL LAB 713-8([facility]) Eosinophil/leuk NFr Bld Auto 2.6 % LAB 711-2([facility]) Eosinophil # Bld Auto 0.21 <0.46 k/uL LAB 706-2([facility]) Basophils/leuk NFr Bld Auto 1.1 % LAB 704-7([facility]) Basophils # Bld Auto 0.09 <0.11 k/uL LAB 46885-5([facility]) Imm Granulocytes/vioelt k NFr Bld Auto 0.4 % LAB 14129-1([facility]) Imm Granulocytes # Bld Auto 0.03 <0.10 k/uL LAB 67537-4([facility]) nRBC/100 WBC Bld-Rto 0.0 /100 WBC LAB 771-6([facility]) nRBC # Bld Auto <0.01 <0.01 k/u L LAB 36754-4([facility]) Differential method Bld Auto Performed By: #### [id number] # ### [facility] CLIA [id number] [address] [place] [address] [place] COMP METAB 2000 PNL SERPL Collected: 7:50 AM Status: F Source: [facility] Order Comment: Specimen Type : BLOOD SPECIMEN Ordering Facility: [facility] Address: [address], [place] [id number] TYPE CODE TESTS RESULT OUT OF RANGE REFERENCE UNITS LAB 2885-2(LOINC) Prot SerPl-mCnc 7.3 6.3-8.0 g/dL LAB 1751-7(LOINC) Albumin SerPl-mCnc 3.8 Low 3.9-4.9 g/dL LAB 19961-1(LOINC) Calcium SerPl-mCnc 9.0 8.5-10.2 mg/dL LAB 1975-2(LOINC) Bilirub SerPl-mCnc 0.8 0.2-1.3 mg/dL LAB 6768-6(LOINC) ALP SerPl-cCnc 139 High 34-123 U/L LAB 1920-8(LOINC) AST SerPl-cCnc 27 13-35 U/L LAB 1742-6(LOINC) ALT SerPl-cCnc 12 7-38 U/L LAB 2345-7(LOINC) Glucose SerPl-mCnc 140 High 74-99 mg/dL Result Comment: The [place] [employer] Association (ADA) provides guidance for cutoff values for fasting glucose and random glucose. The ADA defines fasting as no caloric intake for at least 8 hours. Fasting plasma glucose results between 100 to 125 mg/dL indicate increased risk for diabetes (prediabetes). Fasting plasma glucose results greater than or equal to 126 mg/dL meet the criteria for diagnosis of diabetes. In the absence of unequivocal hyperglycemia, results should be confirmed by repeat testing. In a patient with classic symptoms of hyperglycemia or hyperglycemic crisis, random plasma glucose results greater than or equal to 200 mg/dL meet the criteria for diagnosis of diabetes. Reference: Standards of Medical Care in Diabetes 2016, [place] [employer] Association. Diabetes Care. 2016.39(Suppl 1). LAB 3094-0(LOINC) BUN SerPl-mCnc 63 High 7-21 mg/ dL LAB 2160-0(LOINC) Creat SerPl-mCnc 1.90 High 0.58-0.96 mg/dL LAB 2951-2(LOINC) Sodium SerPl-sCnc 131 Low 136-144 mmol/L LAB 2823-3(LOINC) Potassium SerPl-sCnc 4.2 3.7-5.1 mmol/L LAB 2075-0(LOINC) Chloride SerPl-sCnc 98 98-107 mmol/L LAB 2028-03(LOINC) CO2 SerPl-sCnc 20 Low 22-30 mmo l/L LAB 71145-7(LOINC) Anion Gap SerPl-sCnc 13 8-15 mmol/L LAB 50890-4(LOINC) Creatinine + eGFR Pnl SerPlBld 27 Low >=60 mL/min/1. 73m??? Result Comment: Estimated Gl omerular Filtration Rate (eGFR) is calculated using the 2020 CKD-EPI creatinine equation. This equation utilizes serum creatinine, sex, and age as parameters. The creatinine assay has traceable calibration to isotope dilution-mass spectrometry. Refer to KDIGO guidelines for clinical interpretation. In patients with unstable renal function, e.g. those with acute kidney injury, the eGFR may not accurately reflect actual GFR. Performed By: #### 35854-5, [id number], 09493-3, #### [facility] CLIA [id number] [address] [place] MAGNESIUM SERPL-MCNC Collected: 12/10/2024 7:50 AM S tatus: F Source: [facility] Order Comment: Specimen Type : BLOOD SPECIMEN [facility] [facility] Address: [address] [place] [address] TYPE CODE TESTS RESULT OUT OF RANGE REFERENCE UNITS LAB 75340-0([facility]) Magnesium SerPl-mCnc 1.9 1.7-2.3 mg/dL Performed By: #### 49610-6, [id number], 90436-8, 20607-9 #### [facility] CLIA [id number] [address] [place] HIGH SENSITIVITY TROPONIN T (INITIAL) Collected: 12/10/2024 7:50 AM Status: F Source: [facility] Order Comment: Specimen Type : BLOOD SPECIMEN Ordering Facility: [facility] Address: [address] [place] [address] TYPE CODE TESTS RESULT OUT OF RANGE REFERENCE UNITS LAB 58813-9(LOINC) Troponin T SerPl HS-mCnc 72 High <12 ng/L Performed By: #### 95653-9, [id number], 67628-1, 88230-8 #### [facility] CLIA [id number] [address] [place] [address] [place] NT-PROBNP SERPL-MCNC Collected: 12/10/2024 7:50 AM S tatus: F Source: [facility] Order Comment: Specimen Type : BLOOD SPECIMEN Ordering Facility: [facility] Address: [address] [place] [address] TYPE CODE TESTS RESULT OUT OF RANGE REFERENCE UNITS LAB 31334-3(LOINC) NT-proBNP SerPl-mCnc 91868 High <450 pg/mL Performed By: #### 29953-2, [id number], 26872-5, 04790-8 #### [facility] CLIA [id number] [address] [place] [id number] [facility] ED NOTE Observed: 12/10/2024 7:36 AM Status: COMPLETED Source: [facility] HNO ID: [id number] Author: RODERICK BRYANT RN Service: ? Author Type: Registered Nurse Type: ED Notes Filed: 12/10/2024 07:36 Note Text: DO Ronak rounds at bedside NT-PROBNP SERPL-MCNC Collected: 12/01/2024 8:03 AM S tatus: F Source: [facility] Order Comment: Specimen Type : BLOOD SPECIMEN Ordering Facility: [facility] Address: [address] [place] [address] TYPE CODE TESTS RESULT OUT OF RANGE REFERENCE UNITS LAB 49303-2(LOINC) NT-proBNP SerPl-mCnc 60303 High <450 pg/mL Performed By: #### 75752-1 # ### [facility] CLIA [id number] [address] [place] [address] [place] BAS METAB 2000 PNL SERPL Collected: 8:03 AM Status: F Source: [facility] Order Comment: Specimen Type : BLOOD SPECIMEN Ordering Facility: [facility] Address: [address] [place] [address] TYPE CODE TESTS RESULT OUT OF RANGE REFERENCE UNITS LAB 2345-7(LOINC) Glucose SerPl-mCnc 151 High 74-99 mg/dL Result Comment: The [place] Diabetes Association (ADA) provides guidance for cutoff values for fasting glucose and random glucose. The ADA defines fasting as no caloric intake for at least 8 hours. Fasting plasma glucose results between 100 to 125 mg/dL indicate increased risk for diabetes (prediabetes). Fasting plasma glucose results greater than or equal to 126 mg/dL meet the criteria for diagnosis of diabetes. In the absence of unequivocal hyperglycemia, results should be confirmed by repeat testing. In a patient with classic symptoms of hyperglycemia or hyperglycemic crisis, random plasma glucose results greater than or equal to 200 mg/dL meet the criteria for diagnosis of diabetes. Reference: Standards of Medical Care in Diabetes 2016, [place] [employer] Association. Diabetes Care. 2016.39(Suppl 1). LAB 3094-0(LOINC) BUN SerPl-mCnc 37 High 7-21 mg/ dL LAB 2160-0(LOINC) Creat SerPl-mCnc 1.79 High 0.58-0.96 mg/dL LAB 2951-2(LOINC) Sodium SerPl-sCnc 133 Low 136-144 mmol/L LAB 2823-3(LOINC) Potassium SerPl-sCnc 4.2 3.7-5.1 mmol/L LAB 2075-0(LOINC) Chloride SerPl-sCnc 97 Low 98-107 mmol/L LAB 2028-9(LOINC) CO2 SerPl-sCnc 22 22-30 mmo l/L LAB 57716-3(LOINC) Anion Gap SerPl-sCnc 14 8-15 mmol/L LAB 14563-0(LOINC) Calcium SerPl-mCnc 9.5 8.5-10.2 mg/dL LAB 76981-7(LOINC) Creatinine + eGFR Pnl SerPlBld 29 Low >=60 mL/min/1 .73m??? Result Comment: Estimated Gl omerular Filtration Rate (eGFR) is calculated using the 2020 CKD-EPI creatinine equation. This equation utilizes serum creatinine, sex, and age as parameters. The creatinine assay has traceable calibration to isotope dilution-mass spectrometry. Refer to KDIGO guidelines for clinical interpretation. In patients with unstable renal function, e.g. those with acute kidney injury, the eGFR may not accurately reflect actual GFR. Performed By: #### 52848-2 # ### [facility] [id number] [address] [place] [id number] [place] [address] [place] NT-PROBNP SERPL-MCNC Collected: 11/20/2024 8:29 AM S tatus: F Source: [facility] Order Comment: Specimen Type : BLOOD SPECIMEN Ordering Facility: [facility] Address: [address] [place] [address] TYPE CODE TESTS RESULT OUT OF RANGE REFERENCE UNITS LAB 11046-1(LOINC) NT-proBNP SerPl-mCnc 18078 High <450 pg/mL Performed By: #### 85483-7 # ### [facility] CLIA [id number] [address] [place], [place] [address] [address] [place] BAS METAB 2000 PNL SERPL Collected: 8:29 AM Status: F Source: [facility] Comment: Specimen Type : BLOOD SPECIMEN Ordering Facility: [facility] Address: [address] [place] [address] TYPE CODE TESTS RESULT OUT OF RANGE REFERENCE UNITS LAB 2345-7(LOINC) Glucose SerPl-mCnc 150 High 74-99 mg/dL Result Comment: The [place] Diabetes Association (ADA) provides guidance for cutoff values for fasting glucose and random glucose. The ADA defines fasting as no caloric intake for at least 8 hours. Fasting plasma glucose results between 100 to 125 mg/dL indicate increased risk for diabetes (prediabetes). Fasting plasma glucose results greater than or equal to 126 mg/dL meet the criteria for diagnosis of diabetes. In the absence of unequivocal hyperglycemia, results should be confirmed by repeat testing. In a patient with classic symptoms of hyperglycemia or hyperglycemic crisis, random plasma glucose results greater than or equal to 200 mg/dL meet the criteria for diagnosis of diabetes. Reference: Standards of Medical Care in Diabetes 2016, [place] Diabetes Association. Diabetes Care. 2016.39(Suppl 1). LAB 3094-0(LOINC) BUN SerPl-mCnc 37 High 7-21 mg/ dL LAB 2160-0(LOINC) Creat SerPl-mCnc 1.70 High 0.58-0.96 mg/dL LAB 2951-2(LOINC) Sodium SerPl-sCnc 135 Low 136-144 mmol/L LAB 2823-3(LOINC) Potassium SerPl-sCnc 4.6 3.7-5.1 mmol/L LAB 2075-0(LOINC) Chloride SerPl-sCnc 98 98-107 mmol/L LAB 8-9(LOINC) CO2 SerPl-sCnc 18 Low 22-30 mmo l/L LAB 31632-7(LOINC) Anion Gap SerPl-sCnc 19 High 8-15 mmol/L LAB 28314-2(LOINC) Calcium SerPl-mCnc 9.5 8.5-10.2 mg/dL LAB 15117-8(LOINC) Creatinine + eGFR Pnl SerPlBld 30 Low >=60 mL/min/1 .73m??? Result Comment: Estimated Gl omerular Filtration Rate (eGFR) is calculated using the 2020 CKD-EPI creatinine equation. This equation utilizes serum creatinine, sex, and age as parameters. The creatinine assay has traceable calibration to isotope dilution-mass spectrometry. Refer to KDIGO guidelines for clinical interpretation. In patients with unstable renal function, e.g. those with acute kidney injury, the eGFR may not accurately reflect actual GFR. Performed By: #### 34224-9 # ### [facility] CLIA [id number] [address] [place] [address] OF [facility] CNOV Observed: 11/20/2024 8:00 AM Status: COMPLETED Source: [facility] Office Visit (JOHNNY) BERTA SANCHES ([id number]) 1945 F [facility] Date Time Provider Department 11/20/24 8:00 AM CARLA ARRIAGA During your visit today, we recorded the following information about you: Pulse Respiration Blood pressure Weight 84/minute 12/minute 154/62 65.2 kg Height 1.575 m Carla Arriaga MD 11/20/2024 8:50 AM Signed [facility] Cardiology ([facility]) [address] [facility] [id number] OUTPATIENT VISIT DATE PRIMARY CARE PHYSICIAN: Doreen Le [address] [place] [address] HISTORY OF PRESENT ILLNESS: Ms. Sanches is a 79 year old woman with a history of remote aortic valve replacement with homograft in 1996 and possible repair of the ascending aorta, chronic diastolic congestive heart failure, hypertension, dyslipidemia, atrial fibrillation with history of pulmonary vein isolation procedures, pacemaker placement and watchman procedure who presents for follow-up. Patient has been doing a little bit better since her last office visit. She lost about 9 to 10 pounds. She has been compliant with the torsemide and Aldactone. She has decreased swelling in her legs but still with symptoms consistent with PND and orthopnea. She has shortness of breath on exertion which is slightly better. She denies chest pain or pressure. 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 Aaron [facility] Bilateral carotid artery stenosis 11/26/2016 05/27/16 moderate 50-69% stenosis right and left Bilateral pneumonia 07/20/2015 Cancer of cervix (HCC) Cervical cancer (HCC) 1973 Chest pain 06/01/2015 negative work up with nuclar stress CHF (congestive heart failure) ([facility]) Cholesteatoma of right ear surgical removal Chronic mastoiditis of left side Chronic renal failure, stage 3b (HCC) 04/15/2022 Diabetes (HCC) Diabetes (HCC) GERD (gastroesophageal reflux disease) H/O: GI bleed High blood pressure Hypercholesterolemia Mastoiditis of right side s/p mastoidectomy, complete opacitificationright tympanic cavity and mastoid cells on CT 06/01/16 Mitral valve regurgitation Pacemaker 10/21/[address] TRELL VERNON [id number] pulse generator, his bundle lead, right atrial lead Peripheral arterial disease Rheumatic fever Steatosis, liver 03/26/2014 fatty liver on US. 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 Lua PACEMAKER 10/2019 PART. HYSTERECTOMY W/WO RMVL OVARIES/TUBES 1973 h/o cervical cancer ovaries remain PAST SURGICAL HISTORY OF 1996 Aortic valve repair, Dr. Apodaca PAST SURGICAL HISTORY OF 2001 [address] Beltrán, [facility] PAST SURGICAL HISTORY OF 2015 clipping and coil for brain aneurysm SOCIAL HISTORY Social History Tobacco Use Smoking status: Former Current packs/day: 0.00 Average packs/day: 0.3 packs/day for 2.0 years (0.5 ttl pk-yrs) Types: Cigarettes Start date: 1965 Quit date: 1967 Years since quittin.4 Smokeless tobacco: Never Vaping Use Vaping status: Never Used Substance Use Topics Alcohol use: Not Currently Alcohol/week: 1.0 standard drink of alcohol Types: 1 Glasses of Wine (5oz) per week Comment: red wine 2-3 times a week- occasional Drug use: No FAMILY HISTORY Problem Relation Age of Onset other (Heart Problems) Mother other (myocardial infarction) Mother other (cardiovascular disease) Mother other (Heart Attack) Father other (cardiovascular disease) Father Diabetes Maternal Grandmother ALLERGIES: ALLERGIES Allergen Reactions Protamine Anaphylaxis Had acute drop in blood pressure and end tidal Co2 shortly after administration during watchman procedure on 01/12/22, treated with 60 mcg epinephrine and 10 mg dexamethasone with good response. Propofol Other: See Comments Hypotension MEDICATIONS: spironolactone (ALDACTONE) 25 mg tablet Take 1 tablet by mouth two times a day. torsemide (DEMADEX) 20 mg tablet Take 1 tablet by mouth two times a day. aspirin 81 mg chewable tablet Take 1 tablet by mouth once daily. metoprolol succinate ER (TOPROL XL) 50 mg 24 hr tablet Take 1 tablet by mouth two times a day. potassium chloride (K-TAB) 10 mEq tablet Take 1 tablet by mouth once daily. Blood Pressure Monitor (BLOOD PRESSURE KIT) 1 Each once daily. acetaminophen (TYLENOL) 500 mg tablet Take 1-2 tablets by mouth every 6 hours as needed. blood sugar diagnostic (BLOOD GLUCOSE TEST) test strip Test blood sugar(s) 2 times daily. Dx: Type 2 DM - Controlled E11.9 Insulin: No pantoprazole DR (PROTONIX) 40 mg tablet Take 1 tablet by mouth once daily. clopidogrel (PLAVIX) 75 mg tablet Take 1 tablet by mouth once daily. atorvastatin (LIPITOR) 40 mg tablet Take 1 tablet by mouth once daily. clopidogrel (PLAVIX) 75 mg tablet Take 75 mg by mouth once daily. pantoprazole DR (PROTONIX) 40 mg tablet Take 40 mg by mouth once daily. atorvastatin (LIPITOR) 40 mg tablet Take 40 mg by mouth once daily. omeprazole (PRILOSEC) 40 mg capsule Take 1 capsule by mouth once daily. UBIDECARENONE (COQ-10 ORAL) Take 1 capsule by mouth once daily. (Patient not taking: Reported on 11/20/2024) REVIEW OF SYSTEMS: Review of Systems Constitutional: Negative for chills, fever, malaise/fatigue and weight loss. HENT: Negative for hearing loss and sore throat. Eyes: Negative for blurred vision and double vision. Respiratory: Negative. Cardiovascular: Negative. Genitourinary: Negative for dysuria, frequency, hematuria and urgency. Musculoskeletal: Negative. Skin: Negative. Neurological: Negative for dizziness, seizures, loss of consciousness, weakness and headaches. Endo/Heme/Allergies: Negative for environmental allergies. Does not bruise/bleed easily. Psychiatric/Behavioral: Negative for depression. PHYSICAL EXAMINATION: BP 154/62 (BP Site: Right Arm, BP Position: Sitting, BP Cuff Size: Regular Adult) Pulse 84 Resp 12 Ht 157.5 cm (5' 2") Wt 65.2 kg (143 lb 12.8 oz) SpO2 99% BMI 26.30 kg/m? General: Very pleasant woman sitting appears comfortable in no apparent distress. She is alert and oriented x3. HEENT: Carotid upstrokes are brisk bilaterally. Left carotid bruit noted. No JVD noted at 90 degrees. Pulmonary: Lungs are clear no rales, wheezes, rhonchi Cardiovascular: Normal S1-S2 with regular rate with an irregularly irregular tachycardia rhythm. Mid peaking 2/6 crescendo decrescendo murmur right upper sternal border. Extremities: Warm, well-perfused, 2+ pitting edema to the knees bilaterally. Distal pulses are difficult to palpate. CARDIOVASCULAR MEDICINE TESTING: Right Heart Catheterization [facility] 10/24/2024: Cardiac output (Qs) !4.1L/min ! + + + !Cardiac index !2.42L/(min-m2) ! + + + !HR, R-R, stroke volume !92bpm, 45ml ! + + + !RA pressure a/v (m) ! (23) ! + + + !PA pressure s/d (m) ! (51) ! + + + !PA wedge a/v (m) !26/24 (23) ! + + + !Aortic pressure s/d (m) !163/81 (108) ! + + + !SVR !1650dyn-sec/cm5 ! + + + !SVRI !4902nqp-rrg-e2/cm5 ! + + + !PVR !544dyn-sec/cm5 ! + + + !PVRI !376eju-jzc-s1/cm5 ! + + + !Total systemic resistance!2097dyn-sec/cm5, 7570thu-tsa-i4/cm5! Echocardiogram [facility] 10/03/2024: 1. Left ventricle: The cavity size is normal. Wall thickness was increased in a pattern of mild LVH. Left ventricular geometry shows evidence of eccentric hypertrophy, with increased ventricular mass and normal relative wall thickness. Systolic function was normal. The estimated ejection fraction was in the range of 55% to 60%, by visual assessment. Wall motion was normal; there were no regional wall motion abnormalities. 2. Aortic valve: There is a bioprosthetic valve. The valve leaflets are not well visualized. Transvalvular velocity is within the normal range. There is no stenosis. There is trivial paravalular regurgitation. There is no central regurgitation. The mean systolic gradient is 9.00mm Hg. The valve area by the velocity-time integral method is 1.5cm2. The valve area by the peak velocity method is 1.5cm2. 3. Mitral valve: The leaflets are mildly thickened and calcified. Mobility was normal. The valve area (LVOT continuity) is 2.1cm2. 4. Left atrium: The atrium is severely dilated. 5. Right ventricle: The cavity size is mildly dilated. Pacer wire or catheter noted in right ventricle. Systolic function is mildly reduced. Systolic pressure was increased. 6. Right atrium: The atrium is dilated. 7. Pulmonic valve: There is mild regurgitation. 8. Pulmonary arteries: Systolic pressure is moderately increased. The peak pressure during systole by Doppler is 54mm Hg. 9. Inferior vena cava: The vessel was dilated. The respirophasic diameter changes were blunted (< 50%), consistent with elevated central venous pressure. Echocardiogram 11/10/2023: - The left ventricle is mildly dilated. Left ventricular systolic function is normal. EF = 58 ? 5% (2D biplane) Left ventricular diastolic function was not evaluated due to AF. - The right ventricle is dilated. Right ventricular systolic function is mildly decreased. - The left atrial cavity is moderately dilated. - The right atrial cavity is dilated. - There is mild to moderate (1-2+) mitral regurgitation. - There is moderate (2+) tricuspid valve regurgitation. - Cryolife Homograft prosthetic aortic valve (size #28). There is moderate (2+ - 3+) aortic valve regurgitation. - There is moderate (2+) pulmonic valve regurgitation. - Estimated right ventricular systolic pressure is 73 mmHg consistent with moderately severe pulmonary hypertension. Estimated right atrial pressure is 15 mmHg based on IVC assessment. - Exam was compared with the prior CC echocardiographic exam performed on 10/28/23. The patient is now in atrial fibrillation. LV function has slightly improved. Echocardiogram 10/28/2023: - The left ventricle is mildly dilated. There is mild concentric left ventricular hypertrophy. Left ventricular systolic function is mildly decreased. EF = 51 ? 5% (2D 4-ch.) Indeterminate left ventricular diastolic dysfunction. - The right ventricle is dilated. Right ventricular systolic function is mildly decreased. - The left atrial cavity is severely dilated. - The right atrial cavity is dilated. - The visualized aorta is dilated with a maximal dimension of 4.6 cm. - There is moderate (2+) holosystolic mitral valve regurgitation. - There is moderately severe (3+) tricuspid valve regurgitation. - Cryolife Homograft prosthetic aortic valve (size #28). There is moderate (2+) aortic valve regurgitation. The peak gradient is 25 mmHg, the mean gradient is 12 mmHg and the dimensionless valve index is 0.34. Prior pk/mn gradients were 29/14 mmHg. - Estimated right ventricular systolic pressure is 75 mmHg consistent with moderately severe pulmonary hypertension. Estimated right atrial pressure is 3 mmHg (although IVC not seen). - Exam was compared with the prior CC echocardiographic exam performed on 03/05/2023. There is now evidence of moderately severe tricuspid insufficiency. RVSP estimate has increased also. Transesophageal Echo 03/03/2022: - Exam indication: 45d Watchman follow-up - The left ventricle is normal in size. Left ventricular systolic function is moderately decreased. EF = 38 ? 5% (visual est.) - The right ventricle is normal in size. Right ventricular systolic function is moderately to severely decreased. - The left atrial cavity is dilated. Small Watchman roderick-device leak measuring 2mm (clip 14). - The right atrial cavity is dilated. - There is moderately severe (3+) mitral valve regurgitation due to restricted leaflet motion. Mitral Pk/Mn gradient of 16/8 mmHg at 111 bpm (prior 15/8 mmHg at 96 bpm). - Cryolife prosthetic aortic valve (size #28). There is moderate (2+ - 3+) aortic valve regurgitation. - PPM in situ. - Exam was compared with the prior CC PROECHO echocardiographic exam performed on 01/12/2022. Small 2mm Watchman para-device leak seen. More LV and RV dysfunction reported. Echocardiogram 10/08/2020: - Technically difficult exam due to body habitus. - Exam indication: Routine surveillance of prosthetic valve (>3yrs) - The left ventricle is moderately dilated. Left ventricular systolic function is normal. EF = 58 ? 5% (2D biplane) Indeterminate left ventricular diastolic dysfunction due to mitral valve surgery. - The right ventricle is normal in size. Right ventricular systolic function is low normal. - The left atrial cavity is severely dilated. - There is moderate (2+) mitral valve regurgitation. Regurgitant orifice area (PISA) is 0.15 cm?. - Cryolife prosthetic aortic valve (size #28). There is mild (1+ - 2+) aortic valve regurgitation. The peak gradient is 36 mmHg, the mean gradient is 19 mmHg and the dimensionless valve index is 0.32. - Estimated right ventricular systolic pressure is 70 mmHg consistent with moderately severe pulmonary hypertension. Estimated right atrial pressure is 8 mmHg based on IVC assessment. - Exam was compared with the prior CC echocardiographic exam performed on 03/22/2020, no significant change. Echocardiogram 03/22/20: CONCLUSIONS: - Exam indication: Routine surveillance of prosthetic valve (>3yrs) - The left ventricle is mildly dilated. There is mild concentric left ventricular hypertrophy. Left ventricular systolic function is normal. EF = 60 ? 5% (2D biplane) Grade II left ventricular diastolic dysfunction. - The right ventricle is normal in size. Right ventricular systolic function is normal. - The left atrial cavity is severely dilated. - There is moderate (2+ - 3+) mitral valve regurgitation. Regurgitant orifice area (PISA) is 0.15 cm?. - Cryolife prosthetic aortic valve (size #28). There is mild (1+ - 2+) aortic valve regurgitation. The peak gradient is 47 mmHg, the mean gradient is 23 mmHg nd the dimensionless valve index is 0.32. Prior pk/mn gradients of 24/14 mmHg. - Exam was compared with the prior CC echocardiographic exam performed on 10/24/2018, AV gradients higher on today's study. Carotid Ultrasound 01/27/2023: IMPRESSION Compared to prior study of 10/24/2018, Right internal carotid artery increase from 20-39 - 40-59% stenosis. No significant change in the left internal carotid artery. Elevated velocities noted in the left subclavian artery. *High resistive signal noted bilateral common carotid arteries. RIGHT SIDE Common carotid artery: Plaque visualized without evidence of hemodynamically significant stenosis. Internal carotid artery: 40-59% stenosis. Vertebral artery: Patent and antegrade flow noted. LEFT SIDE Common carotid artery: Plaque visualized without evidence of hemodynamically significant stenosis. Internal carotid artery: 40-59% stenosis. Tortuous vessel at proximal . Vertebral artery: Patent and antegrade flow noted. Subclavian artery: 50-99% stenosis. Carotid Ultrasound 10/24/18: IMPRESSION Irregular heart rhythm noted. RIGHT SIDE Common carotid artery: Plaque visualized without evidence of hemodynamically significant stenosis. Internal carotid artery: 20-39% stenosis. Findings may be underestimated due to calcified shadowing plaque at proximal . Vertebral artery: Patent and antegrade flow noted. LEFT SIDE Common carotid artery: Plaque visualized without evidence of hemodynamically significant stenosis. Internal carotid artery: 40-59% stenosis. Vertebral artery: Patent and antegrade flow noted. Subclavian artery: Plaque visualized without evidence of hemodynamically significant stenosis. CT Chest 04/30/2023: Heart, pericardium, and thoracic vessels: Unchanged dilatation of the ascending thoracic aorta which measures 4.5 cm in diameter. Prosthetic aortic valve. Bilateral atrial enlargement. Atrial appendage device. Coronary artery atherosclerotic calcifications are noted, although the study is not optimized for coronary assessment. No pericardial effusion or thickening. CT Chest Dilated ascending aorta 4.5 cm. Biatrial enlargement. Findings of right heart dysfunction. Coronary artery calcifications CT Kidney 02/13/20 IMPRESSION: STABLE 2.2 CM SOLID, HOMOGENOUSLY ENHANCING RIGHT UPPER POLE RENAL NEOPLASM. NO RETROPERITONEAL LYMPHADENOPATHY, RENAL VEIN THROMBUS, OR OTHER METASTATIC DISEASE. Right kidney: 2.2 x 2.2 x 2.1 cm solid, homogenously enhancing upper pole neoplasm (8:23 and 10:56), stable in size since 05/16/2019 CT and new since remote imaging 07/30/2015 CTA - possibly due to phase of exam. No calculus. Vasculature: The celiac axis and SMA are patent but of which have moderate to severe narrowing near the origins due to atherosclerotic plaque/calcification.. The portal vein and branches, splenic vein, SMV, and hepatic veins are patent. Arterial atherosclerotic disease without aneurysm. CT Aota/Fem Runoff 07/30/15 IMPRESSION: Diffuse atherosclerotic disease. Occlusion of the superficial femoral arteries bilaterally with distal reconstitution through collateral branches. Three vessels runoff throughout the legs bilaterally. High degree stenosis of the celiac origin and proximal SMA as detail above. High degree stenoses of the renal artery origins with heavily calcified atherosclerotic plaque. DUAL LEAD PPM REMOTE EVALUATION 10/04/2024: * Stored EGMs are consistent with or suggestive of Atrial Fibrillation * AT/AF Speed: 67.8% * Total number of events: 2774 Tachycardia: AF w/RVR * Stored EGMs listed as NSVT AND SVT are consistent with or suggestive of Atrial Fibrillation with Rapid Ventricular Response * AT/AF Speed: 67.8% * Total episodes: 9 * Longest episode: 28 SECS * Fastest episode:207 BPM IMPRESSION: Ms. Sanches is a 79 year old woman with an extensive cardiac history. She had undergone aortic valve replacement 1996 with a homograft and possible repair of the ascending aorta. She informed me that her preoperative cardiac catheterization demonstrated no significant obstructive coronary disease. She has a remote smoking history with a history of significant secondhand smoke exposure. 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 She underwent SMA stent placement at [facility] September 2024. She has been treated for paroxysmal atrial fibrillation and has undergone an ablation procedure. Her atrial fibrillation is now persistent. She has had a watchman device placed due to history of GI bleed and intolerance to anticoagulation therapy. She has a history of pulmonary hypertension and right-sided congestive heart failure. She has a dual-chamber pacemaker placement for sinus node dysfunction and chronotropic incompetence. She has a history of chronic diastolic congestive heart failure in the setting of chronic kidney disease. She presents the office for follow-up. PLAN AND RECOMMENDATIONS: 1. History of prosthetic aortic valve replacement - ICD9: V43.3, ICD10: Z95.2 (primary diagnosis) Well-functioning bioprosthetic aortic valve most recent echocardiogram. Likely repeat echocardiogram in 6 months - ASPIRIN 81 MG CHEWABLE TABLET - PANTOPRAZOLE 40 MG TABLET,DELAYED RELEASE 2. Chronic diastolic (congestive) heart failure (HCC) - ICD9: 428.32, 428.0, ICD10: I50.32 Some improvement from last office visit. Continue current dose of torsemide and spironolactone. Repeat blood work today 3. Ascending aorta dilatation - ICD9: 447.71, ICD10: I77.810 4. Longstanding persistent atrial fibrillation (HCC) - ICD9: 427.31, ICD10: I48.11 Patient with a history of Watchman placement. Not on anticoagulation due to history of GI bleed 5. PAD (peripheral artery disease) - ICD9: 443.9, ICD10: I73.9 6. Primary hypertension - ICD9: 401.9, ICD10: I10 Adequate controlled on current regimen. 7. Hyperlipidemia with target LDL less than 70 - ICD9: 272.4, ICD10: E78.5 Has been well-controlled on current dose of atorvastatin - ATORVASTATIN 40 MG TABLET 8. Acute mesenteric ischemia (HCC) - ICD9: 557.0, ICD10: K55.059 Recent superior mesenteric artery stent. Maintained on Plavix and low-dose - ASPIRIN 81 MG CHEWABLE TABLET - CLOPIDOGREL 75 MG TABLET Carla Arriaga MD Allergies As of Date: 11/20/2024 Noted Allergy Reaction PROTAMINE 01/12/2022 10 - Anaphylaxis Comments: Had acute drop in blood pressure and end tidal Co2 shortly after administration during watchman procedure on 01/12/22, treated with 60 mcg epinephrine and 10 mg dexamethasone with good response. PROPOFOL 04/07/2023 14 - Other: See Comments Comments: Hypotension Date Reviewed: 11/20/2024 Reviewed by: Carla Arriaga MD - Fully Assessed Reason for Visit: Follow Up [171] Cmt: labs Primary Visit Diagnosis:History of prosthetic aortic valve replacement [Z95.2] Other Visit Diagnoses:Chronic diastolic (congestive) heart failure (HCC) [I50.32] Ascending aorta dilatation [I77.810] Longstanding persistent atrial fibrillation (HCC) [I48.11] PAD (peripheral artery disease) [I73.9] Primary hypertension [I10] Hyperlipidemia with target LDL less than 70 [E78.5] Acute mesenteric ischemia (HCC) [K55.059] Order(s):aspirin 81 mg chewable tabletTake 1 tablet by mouth once daily.Disp: 90 tabletRfl: 3 atorvastatin (LIPITOR) 40 mg tabletTake 1 tablet by mouth once daily.Disp: 90 tabletRfl: 3 clopidogrel (PLAVIX) 75 mg tabletTake 1 tablet by mouth once daily.Disp: 90 tabletRfl: [address] WatkinsPROTONIX) 40 mg tabletTake 1 tablet by mouth once daily.Disp: 90 tabletRfl: 3 Prescriptions as of 11/20/2024 - aspirin 81 mg chewable tablet Take 1 tablet by mouth once daily. - atorvastatin (LIPITOR) 40 mg tablet Take 1 tablet by mouth once daily. - clopidogrel (PLAVIX) 75 mg tablet Take 1 tablet by mouth once daily. - pantoprazole DR (PROTONIX) 40 mg tablet Take 1 tablet by mouth once daily. - spironolactone (ALDACTONE) 25 mg tablet Take 1 tablet by mouth two times a day. - torsemide (DEMADEX) 20 mg tablet Take 1 tablet by mouth two times a day. - metoprolol succinate ER (TOPROL XL) 50 mg 24 hr tablet Take 1 tablet by mouth two times a day. - potassium chloride (K-TAB) 10 mEq tablet Take 1 tablet by mouth once daily. - omeprazole (PRILOSEC) 40 mg capsule Take 1 capsule by mouth once daily. - Blood Pressure Monitor (BLOOD PRESSURE KIT) 1 Each once daily. - acetaminophen (TYLENOL) 500 mg tablet Take 1-2 tablets by mouth every 6 hours as needed. - blood sugar diagnostic (BLOOD GLUCOSE TEST) test strip Test blood sugar(s) 2 times daily. Dx: Type 2 DM - Controlled E11.9 Insulin: No - UBIDECARENONE (COQ-10 ORAL) Take 1 capsule by mouth once daily. Problem List As Of Date 11/20/2024 Noted Resolved History of prosthetic aortic valve replacement *10/10/2013 Aortic prosthetic valve regurgitation [T82.897A]10/10/2013 Paroxysmal atrial fibrillation (HCC) [I48.0] 10/10/2013 04/11/2023 HTN (hypertension) [I10] 10/10/2013 Hyperlipidemia with target LDL less than 70 [E7*11/20/2013 Type 2 diabetes mellitus without complication, *11/20/2013 09/12/2021 GERD (gastroesophageal reflux disease) [K21.9] 11/20/2013 Chronic anticoagulation [Z79.01] 11/20/2013 Fatigue [R53.83] 11/20/2013 SOB (shortness of breath) [R06.02] 11/20/2013 11/12/2023 H/O rheumatic heart disease [Z86.79] 11/20/2013 SUMMARY [V999.95] 12/09/2013 12/22/2018 Carotid artery disease (HCC) [I77.9] 12/09/2013 09/12/2021 Routine health maintenance [Z00.00] 01/08/2014 09/12/2021 Basal cell carcinoma [C44.91] 01/08/2014 Left shoulder pain [M25.512] 02/26/2014 Abdominal pain [R10.9] 02/26/2014 03/21/2022 Intracranial aneurysm [I67.1] 08/30/2015 10/05/2022 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 09/12/2021 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] 11/19/2016 12/22/2018 Bilateral carotid artery stenosis [I65.23] 11/26/2016 Osteopenia of left lower leg [M85.862] 11/26/2016 Mastoiditis of right side [H70.91] 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] Personal history of colonic polyps [Z86.0100] 01/06/2017 Aortic stenosis [I35.0] 01/06/2017 12/22/2018 History of ischemic colitis [Z87.19] 01/06/2017 Adenomatous polyp of descending colon [D12.4] 01/06/2017 Skin cancer [C44.90] 01/06/2017 PAD (peripheral artery disease) (HCC) [I73.9] 01/06/2017 Pedro aneurysm of anterior communicating artery* Stage 3 chronic renal impairment associated wit*03/11/2017 Other chest pain [R07.89] 03/27/2019 09/19/2020 History of pulmonary embolism [Z86.711] 03/27/2019 Ascending aorta dilatation (HCC) [I77.810] 03/27/2019 Chronic bilateral pleural effusions [J90] 03/27/2019 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] 06/15/2019 Right renal mass [N28.89] 06/16/2019 Diverticulitis of large intestine with perforat*06/16/2019 09/12/2021 Diverticulitis large intestine w/o perforation *07/18/2019 Renal cell carcinoma, right (HCC) [C64.1] 10/17/2019 Iron deficiency anemia [D50.9] 10/24/2019 Anemia due to GI blood loss [D50.0] 10/24/2019 03/22/2022 Renal cell carcinoma (HCC) [C64.9] 10/24/2019 09/12/2021 Hypomagnesemia [E83.42] 10/26/2019 Gastrointestinal hemorrhage associated with acu*02/15/2020 Esophageal stenosis [K22.2] 10/28/2019 Dilated cardiomyopathy (HCC) [I42.0] 03/22/2020 Acute on chronic combined systolic and diastoli*09/19/2020 11/12/2023 SSS (sick sinus syndrome) (HCC) [I49.5] 10/21/2020 Encounter for support and coordination of trans*02/15/2021 09/12/2021 Duodenal ulcer [K26.9] 05/20/2021 Type 2 diabetes mellitus with diabetic peripher*09/12/2021 Atrial fibrillation (HCC) [I48.91] 01/12/2022 04/11/2023 Melena [K92.1] 02/22/2022 02/24/2022 Acute kidney injury (HCC) [N17.9] 02/22/2022 02/24/2022 Acute on chronic systolic heart failure (HCC) [*03/19/2022 03/22/2022 Longstanding persistent atrial fibrillation (HC*03/20/2022 S/P placement of cardiac pacemaker [Z95.0] 03/20/2022 CKD (chronic kidney disease) [N18.9] 03/21/2022 Platelet inhibition due to Plavix [Z79.02] 03/21/2022 Diverticulosis [K57.90] 03/21/2022 Lung nodule, solitary [R91.1] 03/22/2022 Red blood cell antibody positive [R76.8] 03/23/2022 Iron 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 *04/07/2022 Iron malabsorption [K90.9] 04/07/2022 Chronic renal failure, stage 3b (HCC) [N18.32] 04/15/2022 Spondylolisthesis at L4-L5 level [M43.16] 07/07/2022 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 Chronic diastolic (congestive) heart failure (H*11/09/2023 Prescriptions ordered this encounter Disp Refills Start End ASPIRIN 81 MG CHEWABLE TABLET 90 t* 3 11/20/2024 11/20/2025 Route: ORAL Sig: Take 1 tablet by mouth once daily. ATORVASTATIN 40 MG TABLET 90 t* 3 11/20/2024 Route: ORAL Sig: Take 1 tablet by mouth once daily. CLOPIDOGREL 75 MG TABLET 90 t* 3 11/20/2024 Route: ORAL Sig: Take 1 tablet by mouth once daily. PANTOPRAZOLE 40 MG TABLET,DELAYED RE* 90 t* 3 11/20/2024 11/20/2025 Route: ORAL Sig: Take 1 tablet by mouth once daily. Medications Discontinued During This Encounter Prescriptions - pantoprazole DR (PROTONIX) 40 mg tablet (Discontinued) Take 40 mg by mouth once daily. - aspirin 81 mg chewable tablet (Discontinued) Take 1 tablet by mouth once daily. - clopidogrel (PLAVIX) 75 mg tablet (Discontinued) Take 1 tablet by mouth once daily. - atorvastatin (LIPITOR) 40 mg tablet (Discontinued) Take 1 tablet by mouth once daily. - atorvastatin (LIPITOR) 40 mg tablet (Discontinued) Take 40 mg by mouth once daily. - clopidogrel (PLAVIX) 75 mg tablet (Discontinued) Take 75 mg by mouth once daily. - pantoprazole DR (PROTONIX) 40 mg tablet (Discontinued) Take 1 tablet by mouth once daily. Disposition: Return in about 1 month (around 12/21/2024). Follow-up and Disposition History for Encounter Date Provider Department Center 11/20/2024 [id number] ARRIAGA [facility] Encounter Status:Closed by CARLA ARRIAGA on 11/20/24 PROGRESS Observed: 11/20/2024 8:00 AM Status: COMPLETED Source: [facility] ID: [id number] Author: CARLA ARRIAGA MD Service: ? Author Type: Physician Type: Progress Notes Filed: 11/20/2024 08:50 Note Text: [facility] Cardiology ([facility]) [address] [facility] [id number] OUTPATIENT VISIT DATE PRIMARY CARE PHYSICIAN: Doreen Le [address] [facility] [place] [address] HISTORY OF PRESENT ILLNESS: Ms. Sanches is a 79 year old woman with a history of remote aortic valve replacement with homograft in 1996 and possible repair of the ascending aorta, chronic diastolic congestive heart failure, hypertension, dyslipidemia, atrial fibrillation with history of pulmonary vein isolation procedures, pacemaker placement and watchman procedure who presents for follow-up. Patient has been doing a little bit better since her last office visit. She lost about 9 to 10 pounds. She has been compliant with the torsemide and Aldactone. She has decreased swelling in her legs but still with symptoms consistent with PND and orthopnea. She has shortness of breath on exertion which is slightly better. She denies chest pain or pressure. 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 Lua PACEMAKER 10/2019 PART. HYSTERECTOMY W/WO RMVL OVARIES/TUBES 1974 h/o cervical cancer ovaries remain PAST SURGICAL HISTORY OF 1996 Aortic valve repair, Dr. Apodaca PAST SURGICAL HISTORY OF 2001 [address] Beltrán, [facility] PAST SURGICAL HISTORY OF 2015 clipping and coil for brain aneurysm SOCIAL HISTORY Social History Tobacco Use Smoking status: Former Current packs/day: 0.00 Average packs/day: 0.3 packs/day for 2.0 years (0.5 ttl pk-yrs) Types: Cigarettes Start date: 1965 Quit date: 1967 Years since quittin.4 Smokeless tobacco: Never Vaping Use Vaping status: Never Used Substance Use Topics Alcohol use: Not Currently Alcohol/week: 1.0 standard drink of alcohol Types: 1 Glasses of Wine (5oz) per week Comment: red wine 2-3 times a week- occasional Drug use: No FAMILY HISTORY Problem Relation Age of Onset other (Heart Problems) Mother other (myocardial infarction) Mother other (cardiovascular disease) Mother other (Heart Attack) Father other (cardiovascular disease) Father Diabetes Maternal Grandmother ALLERGIES: ALLERGIES Allergen Reactions Protamine Anaphylaxis Had acute drop in blood pressure and end tidal Co2 shortly after administration during watchman procedure on 01/12/22, treated with 60 mcg epinephrine and 10 mg dexamethasone with good response. Propofol Other: See Comments Hypotension MEDICATIONS: spironolactone (ALDACTONE) 25 mg tablet Take 1 tablet by mouth two times a day. torsemide (DEMADEX) 20 mg tablet Take 1 tablet by mouth two times a day. aspirin 81 mg chewable tablet Take 1 tablet by mouth once daily. metoprolol succinate ER (TOPROL XL) 50 mg 24 hr tablet Take 1 tablet by mouth two times a day. potassium chloride (K-TAB) 10 mEq tablet Take 1 tablet by mouth once daily. Blood Pressure Monitor (BLOOD PRESSURE KIT) 1 Each once daily. acetaminophen (TYLENOL) 500 mg tablet Take 1-2 tablets by mouth every 6 hours as needed. blood sugar diagnostic (BLOOD GLUCOSE TEST) test strip Test blood sugar(s) 2 times daily. Dx: Type 2 DM - Controlled E11.9 Insulin: No pantoprazole DR (PROTONIX) 40 mg tablet Take 1 tablet by mouth once daily. clopidogrel (PLAVIX) 75 mg tablet Take 1 tablet by mouth once daily. atorvastatin (LIPITOR) 40 mg tablet Take 1 tablet by mouth once daily. clopidogrel (PLAVIX) 75 mg tablet Take 75 mg by mouth once daily. pantoprazole DR (PROTONIX) 40 mg tablet Take 40 mg by mouth once daily. atorvastatin (LIPITOR) 40 mg tablet Take 40 mg by mouth once daily. omeprazole (PRILOSEC) 40 mg capsule Take 1 capsule by mouth once daily. UBIDECARENONE (COQ-10 ORAL) Take 1 capsule by mouth once daily. (Patient not taking: Reported on 11/20/2024) REVIEW OF SYSTEMS: Review of Systems Constitutional: Negative for chills, fever, malaise/fatigue and weight loss. HENT: Negative for hearing loss and sore throat. Eyes: Negative for blurred vision and double vision. Respiratory: Negative. Cardiovascular: Negative. Genitourinary: Negative for dysuria, frequency, hematuria and urgency. Musculoskeletal: Negative. Skin: Negative. Neurological: Negative for dizziness, seizures, loss of consciousness, weakness and headaches. Endo/Heme/Allergies: Negative for environmental allergies. Does not bruise/bleed easily. Psychiatric/Behavioral: Negative for depression. PHYSICAL EXAMINATION: BP 154/62 (BP Site: Right Arm, BP Position: Sitting, BP Cuff Size: Regular Adult) Pulse 84 Resp 12 Ht 157.5 cm (5' 2") Wt 65.2 kg (143 lb 12.8 oz) SpO2 99% BMI 26.30 kg/m? General: Very pleasant woman sitting appears comfortable in no apparent distress. She is alert and oriented x3. HEENT: Carotid upstrokes are brisk bilaterally. Left carotid bruit noted. No JVD noted at 90 degrees. Pulmonary: Lungs are clear no rales, wheezes, rhonchi Cardiovascular: Normal S1-S2 with regular rate with an irregularly irregular tachycardia rhythm. Mid peaking 2/6 crescendo decrescendo murmur right upper sternal border. Extremities: Warm, well-perfused, 2+ pitting edema to the knees bilaterally. Distal pulses are difficult to palpate. CARDIOVASCULAR MEDICINE TESTING: Right Heart Catheterization David 10/24/2024: Cardiac output (Qs) !4.1L/min ! + + + !Cardiac index !2.42L/(min-m2) ! + + + !HR, R-R, stroke volume !92bpm, 45ml ! + + + !RA pressure a/v (m) ! () ! + + + !PA pressure s/d (m) !28 (51) ! + + + !PA wedge a/v (m) ! (23) ! + + + !Aortic pressure s/d (m) !163/81 (108) ! + + + !SVR !1650dyn-sec/cm5 ! + + + !SVRI !5649xxw-vgp-h9/cm5 ! + + + !PVR !544dyn-sec/cm5 ! + + + !PVRI !343vdq-gui-n5/cm5 ! + + + !Total systemic resistance!2097dyn-sec/cm5, 1737pbz-nok-v8/cm5! Echocardiogram David Melendez 10/03/2024: 1. Left ventricle: The cavity size is normal. Wall thickness was increased in a pattern of mild LVH. Left ventricular geometry shows evidence of eccentric hypertrophy, with increased ventricular mass and normal relative wall thickness. Systolic function was normal. The estimated ejection fraction was in the range of 55% to 60%, by visual assessment. Wall motion was normal; there were no regional wall motion abnormalities. 2. Aortic valve: There is a bioprosthetic valve. The valve leaflets are not well visualized. Transvalvular velocity is within the normal range. There is no stenosis. There is trivial paravalular regurgitation. There is no central regurgitation. The mean systolic gradient is 9.00mm Hg. The valve area by the velocity-time integral method is 1.5cm2. The valve area by the peak velocity method is 1.5cm2. 3. Mitral valve: The leaflets are mildly thickened and calcified. Mobility was normal. The valve area (LVOT continuity) is 2.1cm2. 4. Left atrium: The atrium is severely dilated. 5. Right ventricle: The cavity size is mildly dilated. Pacer wire or catheter noted in right ventricle. Systolic function is mildly reduced. Systolic pressure was increased. 6. Right atrium: The atrium is dilated. 7. Pulmonic valve: There is mild regurgitation. 8. Pulmonary arteries: Systolic pressure is moderately increased. The peak pressure during systole by Doppler is 54mm Hg. 9. Inferior vena cava: The vessel was dilated. The respirophasic diameter changes were blunted (< 50%), consistent with elevated central venous pressure. Echocardiogram 11/10/2023: - The left ventricle is mildly dilated. Left ventricular systolic function is normal. EF = 58 ? 5% (2D biplane) Left ventricular diastolic function was not evaluated due to AF. - The right ventricle is dilated. Right ventricular systolic function is mildly decreased. - The left atrial cavity is moderately dilated. - The right atrial cavity is dilated. - There is mild to moderate (1-2+) mitral regurgitation. - There is moderate (2+) tricuspid valve regurgitation. - [employer]ife Homograft prosthetic aortic valve (size #28). There is moderate (2+ - 3+) aortic valve regurgitation. - There is moderate (2+) pulmonic valve regurgitation. - Estimated right ventricular systolic pressure is 73 mmHg consistent with moderately severe pulmonary hypertension. Estimated right atrial pressure is 15 mmHg based on IVC assessment. - Exam was compared with the prior echocardiographic exam performed on 10/28/23. The patient is now in atrial fibrillation. LV function has slightly improved. Echocardiogram 10/28/2023: - The left ventricle is mildly dilated. There is mild concentric left ventricular hypertrophy. Left ventricular systolic function is mildly decreased. EF = 51 ? 5% (2D 4-ch.) Indeterminate left ventricular diastolic dysfunction. - The right ventricle is dilated. Right ventricular systolic function is mildly decreased. - The left atrial cavity is severely dilated. - The right atrial cavity is dilated. - The visualized aorta is dilated with a maximal dimension of 4.6 cm. - There is moderate (2+) holosystolic mitral valve regurgitation. - There is moderately severe (3+) tricuspid valve regurgitation. - [employer]ife Homograft prosthetic aortic valve (size #28). There is moderate (2+) aortic valve regurgitation. The peak gradient is 25 mmHg, the mean gradient is 12 mmHg and the dimensionless valve index is 0.34. Prior pk/mn gradients were 29/14 mmHg. - Estimated right ventricular systolic pressure is 75 mmHg consistent with moderately severe pulmonary hypertension. Estimated right atrial pressure is 3 mmHg (although IVC not seen). - Exam was compared with the prior echocardiographic exam performed on 03/05/2023. There is now evidence of moderately severe tricuspid insufficiency. RVSP estimate has increased also. Transesophageal Echo 03/03/2022: - Exam indication: 45d Watchman follow-up - The left ventricle is normal in size. Left ventricular systolic function is moderately decreased. EF = 38 ? 5% (visual est.) - The right ventricle is normal in size. Right ventricular systolic function is moderately to severely decreased. - The left atrial cavity is dilated. Small Watchman roderick-device leak measuring 2mm (clip 14). - The right atrial cavity is dilated. - There is moderately severe (3+) mitral valve regurgitation due to restricted leaflet motion. Mitral Pk/Mn gradient of 16/8 mmHg at 111 bpm (prior 15/8 mmHg at 96 bpm). - [employer]ife prosthetic aortic valve (size #28). There is moderate (2+ - 3+) aortic valve regurgitation. - PPM in situ. - Exam was compared with the prior PROECHO echocardiographic exam performed on 01/12/2022. Small 2mm Watchman para-device leak seen. More LV and RV dysfunction reported. Echocardiogram 10/08/2020: - Technically difficult exam due to body habitus. - Exam indication: Routine surveillance of prosthetic valve (>3yrs) - The left ventricle is moderately dilated. Left ventricular systolic function is normal. EF = 58 ? 5% (2D biplane) Indeterminate left ventricular diastolic dysfunction due to mitral valve surgery. - The right ventricle is normal in size. Right ventricular systolic function is low normal. - The left atrial cavity is severely dilated. - There is moderate (2+) mitral valve regurgitation. Regurgitant orifice area (PISA) is 0.15 cm?. - Cryolife prosthetic aortic valve (size #28). There is mild (1+ - 2+) aortic valve regurgitation. The peak gradient is 36 mmHg, the mean gradient is 19 mmHg and the dimensionless valve index is 0.32. - Estimated right ventricular systolic pressure is 70 mmHg consistent with moderately severe pulmonary hypertension. Estimated right atrial pressure is 8 mmHg based on IVC assessment. - Exam was compared with the prior CC echocardiographic exam performed on 03/22/2020, no significant change. Echocardiogram 03/22/20: CONCLUSIONS: - Exam indication: Routine surveillance of prosthetic valve (>3yrs) - The left ventricle is mildly dilated. There is mild concentric left ventricular hypertrophy. Left ventricular systolic function is normal. EF = 60 ? 5% (2D biplane) Grade II left ventricular diastolic dysfunction. - The right ventricle is normal in size. Right ventricular systolic function is normal. - The left atrial cavity is severely dilated. - There is moderate (2+ - 3+) mitral valve regurgitation. Regurgitant orifice area (PISA) is 0.15 cm?. - Cryolife prosthetic aortic valve (size #28). There is mild (1+ - 2+) aortic valve regurgitation. The peak gradient is 47 mmHg, the mean gradient is 23 mmHg nd the dimensionless valve index is 0.32. Prior pk/mn gradients of 24/14 mmHg. - Exam was compared with the prior CC echocardiographic exam performed on 10/24/2018, AV gradients higher on today's study. Carotid Ultrasound 01/27/2023: IMPRESSION Compared to prior study of 10/24/2018, Right internal carotid artery increase from 20-39 - 40-59% stenosis. No significant change in the left internal carotid artery. Elevated velocities noted in the left subclavian artery. *High resistive signal noted bilateral common carotid arteries. RIGHT SIDE Common carotid artery: Plaque visualized without evidence of hemodynamically significant stenosis. Internal carotid artery: 40-59% stenosis. Vertebral artery: Patent and antegrade flow noted. LEFT SIDE Common carotid artery: Plaque visualized without evidence of hemodynamically significant stenosis. Internal carotid artery: 40-59% stenosis. Tortuous vessel at proximal . Vertebral artery: Patent and antegrade flow noted. Subclavian artery: 50-99% stenosis. Carotid Ultrasound 10/24/18: IMPRESSION Irregular heart rhythm noted. RIGHT SIDE Common carotid artery: Plaque visualized without evidence of hemodynamically significant stenosis. Internal carotid artery: 20-39% stenosis. Findings may be underestimated due to calcified shadowing plaque at proximal . Vertebral artery: Patent and antegrade flow noted. LEFT SIDE Common carotid artery: Plaque visualized without evidence of hemodynamically significant stenosis. Internal carotid artery: 40-59% stenosis. Vertebral artery: Patent and antegrade flow noted. Subclavian artery: Plaque visualized without evidence of hemodynamically significant stenosis. CT Chest 04/30/2023: Heart, pericardium, and thoracic vessels: Unchanged dilatation of the ascending thoracic aorta which measures 4.5 cm in diameter. Prosthetic aortic valve. Bilateral atrial enlargement. Atrial appendage device. Coronary artery atherosclerotic calcifications are noted, although the study is not optimized for coronary assessment. No pericardial effusion or thickening. CT Chest Dilated ascending aorta 4.5 cm. Biatrial enlargement. Findings of right heart dysfunction. Coronary artery calcifications CT Kidney 02/13/20 IMPRESSION: STABLE 2.2 CM SOLID, HOMOGENOUSLY ENHANCING RIGHT UPPER POLE RENAL NEOPLASM. NO RETROPERITONEAL LYMPHADENOPATHY, RENAL VEIN THROMBUS, OR OTHER METASTATIC DISEASE. Right kidney: 2.2 x 2.2 x 2.1 cm solid, homogenously enhancing upper pole neoplasm (8:23 and 10:56), stable in size since 05/16/2019 CT and new since remote imaging 07/30/2015 CTA - possibly due to phase of exam. No calculus. Vasculature: The celiac axis and SMA are patent but of which have moderate to severe narrowing near the origins due to atherosclerotic plaque/calcification.. The portal vein and branches, splenic vein, SMV, and hepatic veins are patent. Arterial atherosclerotic disease without aneurysm. CT Aota/Fem Runoff 07/30/15 IMPRESSION: Diffuse atherosclerotic disease. Occlusion of the superficial femoral arteries bilaterally with distal reconstitution through collateral branches. Three vessels runoff throughout the legs bilaterally. High degree stenosis of the celiac origin and proximal SMA as detail above. High degree stenoses of the renal artery origins with heavily calcified atherosclerotic plaque. DUAL LEAD PPM REMOTE EVALUATION 10/04/2024: * Stored EGMs are consistent with or suggestive of Atrial Fibrillation * AT/AF Speed: 67.8% * Total number of events: 2774 Tachycardia: AF w/RVR * Stored EGMs listed as NSVT AND SVT are consistent with or suggestive of Atrial Fibrillation with Rapid Ventricular Response * AT/AF Speed: 67.8% * Total episodes: 9 * Longest episode: 28 SECS * Fastest episode:207 BPM IMPRESSION: Ms. Sanches is a 79 year old woman with an extensive cardiac history. She had undergone aortic valve replacement 1996 with a homograft and possible repair of the ascending aorta. She informed me that her preoperative cardiac catheterization demonstrated no significant obstructive coronary disease. She has a remote smoking history with a history of significant secondhand smoke exposure. 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 She underwent SMA stent placement at [facility] September 2024. She has been treated for paroxysmal atrial fibrillation and has undergone an ablation procedure. Her atrial fibrillation is now persistent. She has had a watchman device placed dueto history of GI bleed and intolerance to anticoagulation therapy. She has a history of pulmonary hypertension and right-sided congestive heart failure. She has a dual-chamber pacemaker placement for sinus node dysfunction and chronotropic incompetence. She has a history of chronic diastolic congestive heart failure in the setting of chronic kidney disease. She presents the office for follow-up. PLAN AND RECOMMENDATIONS: 1. History of prosthetic aortic valve replacement - ICD9: V43.3, ICD10: Z95.2 (primary diagnosis) Well-functioning bioprosthetic aortic valve most recent echocardiogram. Likely repeat echocardiogram in 6 months - ASPIRIN 81 MG CHEWABLE TABLET - PANTOPRAZOLE 40 MG TABLET,DELAYED RELEASE 2. Chronic diastolic (congestive) heart failure (HCC) - ICD9: 428.32, 428.0, ICD10: I50.32 Some improvement from last office visit. Continue current dose of torsemide and spironolactone. Repeat blood work today 3. Ascending aorta dilatation - ICD9: 447.71, ICD10: I77.810 4. Longstanding persistent atrial fibrillation (HCC) - ICD9: 427.31, ICD10: I48.11 Patient with a history of Watchman placement. Not on anticoagulation due to history of GI bleed 5. PAD (peripheral artery disease) - ICD9: 443.9, ICD10: I73.9 6. Primary hypertension - ICD9: 401.9, ICD10: I10 Adequate controlled on current regimen. 7. Hyperlipidemia with target LDL less than 70 - ICD9: 272.4, ICD10: E78.5 Has been well-controlled on current dose of atorvastatin - ATORVASTATIN 40 MG TABLET 8. Acute mesenteric ischemia (HCC) - ICD9: 557.0, ICD10: K55.059 Recent superior mesenteric artery stent. Maintained on Plavix and low-dose - ASPIRIN 81 MG CHEWABLE TABLET - CLOPIDOGREL 75 MG TABLET Carla Arriaga MD CNPN Observed: 11/14/2024 12:00 AM Status: COMPLETED Source: [facility] Telephone ([employer]) BERTA SANCHES ([id number]) 1945 F [facility] Date Time Provider Department 11/14/24 CARLA ARRIAGA During your visit today, we recorded the following information about you: Bhavna Laird MA 11/14/2024 9:54 AM Signed Natanael calling and states according his 's lab work her creatine has improved. States she is still not sleeping at night. She is continuing to have edema in her abdomen, legs and calf. Her weight is up 10 pounds. is taking 20 mg Torsemide 2 times a day and feels it is not helping. is asking if they can increase the Torsemide to help with the edema? Irma Hui RN 11/15/2024 8:29 AM Signed Patient called in asking if she can increase her Torsemide? Creatinine 1.82, BUN 41, and BNP 17,541. Patient reporting decrease in her edema and 3 lb weight loss since yesterday. Please advise. DOUG Chavarria Laurie, MA 11/16/2024 9:27 AM Signed Carla Arriaga MD I called and spoke to her. SHe was not taking the spironolactone as directed. I have asked her to increase it to 2 times a day and continue her current dose of torsemide. I asked her to stop in the office on Wednesday when I am there at [place]. Will plan to repeat blood work at that time. Allergies As of Date: 11/14/2024 Noted Allergy Reaction PROTAMINE 01/12/2022 10 - Anaphylaxis Comments: Had acute drop in blood pressure and end tidal Co2 shortly after administration during watchman procedure on 01/12/22, treated with 60 mcg epinephrine and 10 mg dexamethasone with good response. PROPOFOL 04/07/2023 14 - Other: See Comments Comments: Hypotension Date Reviewed: 11/06/2024 Reviewed by: Carla Arriaga MD - Fully Assessed Reason for Visit: Patient Update [1234] Prescriptions as of 11/22/2024 - aspirin 81 mg chewable tablet Take 1 tablet by mouth once daily. - atorvastatin (LIPITOR) 40 mg tablet Take 1 tablet by mouth once daily. - clopidogrel (PLAVIX) 75 mg tablet Take 1 tablet by mouth once daily. - pantoprazole DR (PROTONIX) 40 mg tablet Take 1 tablet by mouth once daily. - spironolactone (ALDACTONE) 25 mg tablet Take 1 tablet by mouth two times a day. - torsemide (DEMADEX) 20 mg tablet Take 1 tablet by mouth two times a day. - metoprolol succinate ER (TOPROL XL) 50 mg 24 hr tablet Take 1 tablet by mouth two times a day. - potassium chloride (K-TAB) 10 mEq tablet Take 1 tablet by mouth once daily. - omeprazole (PRILOSEC) 40 mg capsule Take 1 capsule by mouth once daily. - Blood Pressure Monitor (BLOOD PRESSURE KIT) 1 Each once daily. - acetaminophen (TYLENOL) 500 mg tablet Take 1-2 tablets by mouth every 6 hours as needed. - blood sugar diagnostic (BLOOD GLUCOSE TEST) test strip Test blood sugar(s) 2 times daily. Dx: Type 2 DM - Controlled E11.9 Insulin: No - UBIDECARENONE (COQ-10 ORAL) Take 1 capsule by mouth once daily. Problem List As Of Date 11/14/2024 Noted Resolved History of prosthetic aortic valve replacement *10/10/2013 Aortic prosthetic valve regurgitation [T82.897A]10/10/2013 Paroxysmal atrial fibrillation (HCC) [I48.0] 10/10/2013 04/11/2023 HTN (hypertension) [I10] 10/10/2013 Hyperlipidemia with target LDL less than 70 [E7*11/20/2013 Type 2 diabetes mellitus without complication, *11/20/2013 09/12/2021 GERD (gastroesophageal reflux disease) [K21.9] 11/20/2013 Chronic anticoagulation [Z79.01] 11/20/2013 Fatigue [R53.83] 11/20/2013 SOB (shortness of breath) [R06.02] 11/20/2013 11/12/2023 H/O rheumatic heart disease [Z86.79] 11/20/2013 SUMMARY [V999.95] 12/09/2013 12/22/2018 Carotid artery disease (HCC) [I77.9] 12/09/2013 09/12/2021 Routine health maintenance [Z00.00] 01/08/2014 09/12/2021 Basal cell carcinoma [C44.91] 01/08/2014 Left shoulder pain [M25.512] 02/26/2014 Abdominal pain [R10.9] 02/26/2014 03/21/2022 Intracranial aneurysm [I67.1] 08/30/2015 10/05/2022 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 09/12/2021 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] 11/19/2016 12/22/2018 Bilateral carotid artery stenosis [I65.23] 11/26/2016 Osteopenia of left lower leg [M85.862] 11/26/2016 Mastoiditis of right side [H70.91] 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] Personal history of colonic polyps [Z86.0100] 01/06/2017 Aortic stenosis [I35.0] 01/06/2017 12/22/2018 History of ischemic colitis [Z87.19] 01/06/2017 Adenomatous polyp of descending colon [D12.4] 01/06/2017 Skin cancer [C44.90] 01/06/2017 PAD (peripheral artery disease) (HCC) [I73.9] 01/06/2017 Pedro aneurysm of anterior communicating artery* Stage 3 chronic renal impairment associated wit*03/11/2017 Other chest pain [R07.89] 03/27/2019 09/19/2020 History of pulmonary embolism [Z86.711] 03/27/2019 Ascending aorta dilatation (HCC) [I77.810] 03/27/2019 Chronic bilateral pleural effusions [J90] 03/27/2019 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] 06/15/2019 Right renal mass [N28.89] 06/16/2019 Diverticulitis of large intestine with perforat*06/16/2019 09/12/2021 Diverticulitis large intestine w/o perforation *07/18/2019 Renal cell carcinoma, right (HCC) [C64.1] 10/17/2019 Iron deficiency anemia [D50.9] 10/24/2019 Anemia due to GI blood loss [D50.0] 10/24/2019 03/22/2022 Renal cell carcinoma (HCC) [C64.9] 10/24/2019 09/12/2021 Hypomagnesemia [E83.42] 10/26/2019 Gastrointestinal hemorrhage associated with acu*02/15/2020 Esophageal stenosis [K22.2] 10/28/2019 Dilated cardiomyopathy (HCC) [I42.0] 03/22/2020 Acute on chronic combined systolic and diastoli*09/19/2020 11/12/2023 SSS (sick sinus syndrome) (HCC) [I49.5] 10/21/2020 Encounter for support and coordination of trans*02/15/2021 09/12/2021 Duodenal ulcer [K26.9] 05/20/2021 Type 2 diabetes mellitus with diabetic peripher*09/12/2021 Atrial fibrillation (HCC) [I48.91] 01/12/2022 04/11/2023 Melena [K92.1] 02/22/2022 02/24/2022 Acute kidney injury (HCC) [N17.9] 02/22/2022 02/24/2022 Acute on chronic systolic heart failure (HCC) [*03/19/2022 03/22/2022 Longstanding persistent atrial fibrillation (HC*03/20/2022 S/P placement of cardiac pacemaker [Z95.0] 03/20/2022 CKD (chronic kidney disease) [N18.9] 03/21/2022 Platelet inhibition due to Plavix [Z79.02] 03/21/2022 Diverticulosis [K57.90] 03/21/2022 Lung nodule, solitary [R91.1] 03/22/2022 Red blood cell antibody positive [R76.8] 03/23/2022 Iron 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 *04/07/2022 Iron malabsorption [K90.9] 04/07/2022 Chronic renal failure, stage 3b (HCC) [N18.32] 04/15/2022 Spondylolisthesis at L4-L5 level [M43.16] 07/07/2022 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 Chronic diastolic (congestive) heart failure (H*11/09/2023 Encounter Status:Closed by IRMA HUI on 11/22/24 NT-PROBNP SERPL-MCNC Collected: 11/13/2024 8:19 AM S tatus: F Source: [facility] Order Comment: Specimen Type : BLOOD SPECIMEN Ordering Facility: [facility] Address: [address] [place] [address] TYPE CODE TESTS RESULT OUT OF RANGE REFERENCE UNITS LAB 07125-1(LOINC) NT-proBNP SerPl-mCnc 25444 High <450 pg/mL Performed By: #### [id number] # ### [facility] CLIA [id number] [address] [place] [address] [place] METAB 2000 PNL SERPL Collected: 06/2025 8:19 AM Status: F Source: [facility] Order Comment: Specimen Type : BLOOD SPECIMEN Ordering Facility: [facility] Address: [address] [place] [address] TYPE CODE TESTS RESULT OUT OF RANGE REFERENCE UNITS LAB 2345-7(LOINC) Glucose SerPl-mCnc 127 High 74-99 mg/dL Result Comment: The [place] Diabetes Association (ADA) provides guidance for cutoff values for fasting glucose and random glucose. The ADA defines fasting as no caloric intake for at least 8 hours. Fasting plasma glucose results between 100 to 125 mg/dL indicate increased risk for diabetes (prediabetes). Fasting plasma glucose results greater than or equal to 126 mg/dL meet the criteria for diagnosis of diabetes. In the absence of unequivocal hyperglycemia, results should be confirmed by repeat testing. In a patient with classic symptoms of hyperglycemia or hyperglycemic crisis, random plasma glucose results greater than or equal to 200 mg/dL meet the criteria for diagnosis of diabetes. Reference: Standards of Medical Care in Diabetes 2016, [place] [employer] Association. Diabetes Care. 2016.39(Suppl 1). LAB 3094-0(LOINC) BUN SerPl-mCnc 41 High 7-21 mg/ dL LAB 2160-0(LOINC) Creat SerPl-mCnc 1.82 High 0.58-0.96 mg/dL LAB 2951-2(LOINC) Sodium SerPl-sCnc 135 Low 136-144 mmol/L LAB 2823-3(LOINC) Potassium SerPl-sCnc 4.0 3.7-5.1 mmol/L LAB 2075-0(LOINC) Chloride SerPl-sCnc 98 98-107 mmol/L LAB 2028-9(LOINC) CO2 SerPl-sCnc 26 22-30 mmo l/L LAB 11098-2(LOINC) Anion Gap SerPl-sCnc 11 8-15 mmol/L LAB 14356-2(LOINC) Calcium SerPl-mCnc 9.3 8.5-10.2 mg/dL LAB 76498-3(LOINC) Creatinine + eGFR Pnl SerPlBld 28 Low >=60 mL/min/1 .73m??? Result Comment: Estimated Gl omerular Filtration Rate (eGFR) is calculated using the 2020 CKD-EPI creatinine equation. This equation utilizes serum creatinine, sex, and age as parameters. The creatinine assay has traceable calibration to isotope dilution-mass spectrometry. Refer to KDIGO guidelines for clinical interpretation. In patients with unstable renal function, e.g. those with acute kidney injury, the eGFR may not accurately reflect actual GFR. Performed By: #### 09731-4 # ### [facility] [id number] [address] [place] [address] OF [facility] PROGRESS Observed: 11/06/2024 2:40 PM Status: COMPLETED Source: [facility] ID: [id number] Author: CARLA ARRIAGA MD Service: ? Author Type: Physician Type: Progress Notes Filed: 11/06/2024 17:01 Note Text: [facility] Cardiology ([facility]) [address] [facility] [id number] OUTPATIENT VISIT DATE 11/06/2024 PRIMARY CARE PHYSICIAN: Doreen Le [address] [place] [address] HISTORY OF PRESENT ILLNESS: Ms. Sanches is a 79 year old woman with a history of remote aortic valve replacement with homograft in 1996 and possible repair of the ascending aorta, chronic diastolic congestive heart failure, hypertension, dyslipidemia, atrial fibrillation with history of pulmonary vein isolation procedures, pacemaker placement and watchman procedure who presents for follow-up. Patient was admitted to the hospital while vacationing in [place]. She underwent SMA stent placement. This was followed by a long admission for decompensated congestive heart failure in the setting of the renal insufficiency. Since returning from [place], she has had difficulties with weight gain and lower extremity edema. She was seen in the heart failure clinic last Wednesday. She was given a dose of IV Lasix but states she had no significant weight loss after that treatment. She has been compliant with her Lasix and low-sodium diet. She has noticed no improvement in taking her Lasix. She denies overt chest pain or chest pressure. 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 Aaron [facility] Bilateral carotid artery stenosis 11/26/2016 05/27/16 moderate 50-69% stenosis right and left Bilateral pneumonia 07/20/2015 Cancer of cervix (HCC) Cervical cancer (HCC) 1973 Chest pain 06/01/2015 negative work up with nuclar stress CHF (congestive heart failure) (HCC) Cholesteatoma of right ear surgical removal Chronic mastoiditis of left side Chronic renal failure, stage 3b (HCC) 04/15/2022 Diabetes (HCC) Diabetes (HCC) GERD (gastroesophageal reflux disease) H/O: GI bleed High blood pressure Hypercholesterolemia Mastoiditis of right side s/p mastoidectomy, complete opacitificationright tympanic cavity and mastoid cells on CT 06/01/16 Mitral valve regurgitation Pacemaker 10/21/[address] TRELL VERNON [id number] pulse generator, his bundle lead, right atrial lead Peripheral arterial disease Rheumatic fever Steatosis, liver 03/26/2014 fatty liver on US. No gallstones Tachy-lionel syndrome (HCC) PAST SURGICAL HISTORY Procedure Laterality Date ABLATION 2018 for afib ANESTHESIA EXTERNAL MIDDLE AND INNER EAR W/BX NOS 2002, 2003,04/30/15 CARDIOVERSION 2018 EGD 02/28/2021 ESOPHAGOGASTRODUODENOSCOPY TRANSORAL DIAGNOSTIC 02/28/2021 LAP COLECTOMY, SIGMOID W/SUPERVISOR PLASTIC SHEETS 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 Lua PACEMAKER 10/2019 PART. HYSTERECTOMY W/WO RMVL OVARIES/TUBES 1974 h/o cervical cancer ovaries remain PAST SURGICAL HISTORY OF 1996 Aortic valve repair, Dr. Apodaca PAST SURGICAL HISTORY OF 2001 [address] Beltrán, [facility] PAST SURGICAL HISTORY OF 2015 clipping and coil for brain aneurysm SOCIAL HISTORY Social History Tobacco Use Smoking status: Former Current packs/day: 0.00 Average packs/day: 0.3 packs/day for 2.0 years (0.5 ttl pk-yrs) Types: Cigarettes Start date: 1965 Quit date: 1967 Years since quittin.3 Smokeless tobacco: Never Vaping Use Vaping status: Never Used Substance Use Topics Alcohol use: Not Currently Alcohol/week: 1.0 standard drink of alcohol Types: 1 Glasses of Wine (5oz) per week Comment: red wine 2-3 times a week- occasional Drug use: No FAMILY HISTORY Problem Relation Age of Onset other (Heart Problems) Mother other (myocardial infarction) Mother other (cardiovascular disease) Mother other (Heart Attack) Father other (cardiovascular disease) Father Diabetes Maternal Grandmother ALLERGIES: ALLERGIES Allergen Reactions Protamine Anaphylaxis Had acute drop in blood pressure and end tidal Co2 shortly after administration during watchman procedure on 01/12/22, treated with 60 mcg epinephrine and 10 mg dexamethasone with good response. Propofol Other: See Comments Hypotension MEDICATIONS: clopidogrel (PLAVIX) 75 mg tablet Take 75 mg by mouth once daily. pantoprazole DR (PROTONIX) 40 mg tablet Take 40 mg by mouth once daily. atorvastatin (LIPITOR) 40 mg tablet Take 40 mg by mouth once daily. aspirin 81 mg chewable tablet Take 1 tablet by mouth once daily. metoprolol succinate ER (TOPROL XL) 50 mg 24 hr tablet Take 1 tablet by mouth two times a day. potassium chloride (K-TAB) 10 mEq tablet Take 1 tablet by mouth once daily. (Patient taking differently: Take 10 mEq by mouth two times a day.) Blood Pressure Monitor (BLOOD PRESSURE KIT) 1 Each once daily. acetaminophen (TYLENOL) 500 mg tablet Take 1-2 tablets by mouth every 6 hours as needed. blood sugar diagnostic (BLOOD GLUCOSE TEST) test strip Test blood sugar(s) 2 times daily. Dx: Type 2 DM - Controlled E11.9 Insulin: No spironolactone (ALDACTONE) 25 mg tablet Take 1 tablet by mouth two times a day. torsemide (DEMADEX) 20 mg tablet Take 1 tablet by mouth two times a day. omeprazole (PRILOSEC) 40 mg capsule Take 1 capsule by mouth once daily. UBIDECARENONE (COQ-10 ORAL) Take 1 capsule by mouth once daily. (Patient not taking: Reported on 11/06/2024) REVIEW OF SYSTEMS: Review of Systems Constitutional: Negative for chills, fever, malaise/fatigue and weight loss. HENT: Negative for hearing loss and sore throat. Eyes: Negative for blurred vision and double vision. Respiratory: Negative. Cardiovascular: Negative. Genitourinary: Negative for dysuria, frequency, hematuria and urgency. Musculoskeletal: Negative. Skin: Negative. Neurological: Negative for dizziness, seizures, loss of consciousness, weakness and headaches. Endo/Heme/Allergies: Negative for environmental allergies. Does not bruise/bleed easily. Psychiatric/Behavioral: Negative for depression. PHYSICAL EXAMINATION: BP 134/54 (BP Site: Right Arm, BP Position: Sitting, BP Cuff Size: Large Adult) Pulse 68 Resp 12 Ht 157.5 cm (5' 2") Wt 68.9 kg (152 lb) SpO2 100% BMI 27.80 kg/m? General: Very pleasant woman sitting appears comfortable in no apparent distress. She is alert and oriented x3. HEENT: Carotid upstrokes are brisk bilaterally. Left carotid bruit noted. No JVD noted at 90 degrees. Pulmonary: Lungs are clear no rales, wheezes, rhonchi Cardiovascular: Normal S1-S2 with regular rate with an irregularly irregular tachycardia rhythm. Mid peaking 2/6 crescendo decrescendo murmur right upper sternal border. Extremities: Warm, well-perfused, 2-3+ pitting edema to the knees bilaterally. Distal pulses are difficult to palpate. CARDIOVASCULAR MEDICINE TESTING: Right Heart Catheterization [facility] 10/24/2024: Cardiac output (Qs) !4.1L/min ! + + + !Cardiac index !2.42L/(min-m2) ! + + + !HR, R-R, stroke volume !92bpm, 45ml ! + + + !RA pressure a/v (m) !28 (23) ! + + + !PA pressure s/d (m) !85/28 (51) ! + + + !PA wedge a/v (m) !26/24 (23) ! + + + !Aortic pressure s/d (m) !163/81 (108) ! + + + !SVR !1650dyn-sec/cm5 ! + + + !SVRI !0941bxs-yfn-w8/cm5 ! + + + !PVR !544dyn-sec/cm5 ! + + + !PVRI !860oag-ltm-e0/cm5 ! + + + !Total systemic resistance!2097dyn-sec/cm5, 1968lzk-zlu-g0/cm5! Echocardiogram David Melendez 10/03/2024: 1. Left ventricle: The cavity size is normal. Wall thickness was increased in a pattern of mild LVH. Left ventricular geometry shows evidence of eccentric hypertrophy, with increased ventricular mass and normal relative wall thickness. Systolic function was normal. The estimated ejection fraction was in the range of 55% to 60%, by visual assessment. Wall motion was normal; there were no regional wall motion abnormalities. 2. Aortic valve: There is a bioprosthetic valve. The valve leaflets are not well visualized. Transvalvular velocity is within the normal range. There is no stenosis. There is trivial paravalular regurgitation. There is no central regurgitation. The mean systolic gradient is 9.00mm Hg. The valve area by the velocity-time integral method is 1.5cm2. The valve area by the peak velocity method is 1.5cm2. 3. Mitral valve: The leaflets are mildly thickened and calcified. Mobility was normal. The valve area (LVOT continuity) is 2.1cm2. 4. Left atrium: The atrium is severely dilated. 5. Right ventricle: The cavity size is mildly dilated. Pacer wire or catheter noted in right ventricle. Systolic function is mildly reduced. Systolic pressure was increased. 6. Right atrium: The atrium is dilated. 7. Pulmonic valve: There is mild regurgitation. 8. Pulmonary arteries: Systolic pressure is moderately increased. The peak pressure during systole by Doppler is 54mm Hg. 9. Inferior vena cava: The vessel was dilated. The respirophasic diameter changes were blunted (< 50%), consistent with elevated central venous pressure. Echocardiogram 11/10/2023: - The left ventricle is mildly dilated. Left ventricular systolic function is normal. EF = 58 ? 5% (2D biplane) Left ventricular diastolic function was not evaluated due to AF. - The right ventricle is dilated. Right ventricular systolic function is mildly decreased. - The left atrial cavity is moderately dilated. - The right atrial cavity is dilated. - There is mild to moderate (1-2+) mitral regurgitation. - There is moderate (2+) tricuspid valve regurgitation. - Cryolife Homograft prosthetic aortic valve (size #28). There is moderate (2+ - 3+) aortic valve regurgitation. - There is moderate (2+) pulmonic valve regurgitation. - Estimated right ventricular systolic pressure is 73 mmHg consistent with moderately severe pulmonary hypertension. Estimated right atrial pressure is 15 mmHg based on IVC assessment. - Exam was compared with the prior CC echocardiographic exam performed on 10/28/23. The patient is now in atrial fibrillation. LV function has slightly improved. Echocardiogram 10/28/2023: - The left ventricle is mildly dilated. There is mild concentric left ventricular hypertrophy. Left ventricular systolic function is mildly decreased. EF = 51 ? 5% (2D 4-ch.) Indeterminate left ventricular diastolic dysfunction. - The right ventricle is dilated. Right ventricular systolic function is mildly decreased. - The left atrial cavity is severely dilated. - The right atrial cavity is dilated. - The visualized aorta is dilated with a maximal dimension of 4.6 cm. - There is moderate (2+) holosystolic mitral valve regurgitation. - There is moderately severe (3+) tricuspid valve regurgitation. - Cryolife Homograft prosthetic aortic valve (size #28). There is moderate (2+) aortic valve regurgitation. The peak gradient is 25 mmHg, the mean gradient is 12 mmHg and the dimensionless valve index is 0.34. Prior pk/mn gradients were 29/14 mmHg. - Estimated right ventricular systolic pressure is 75 mmHg consistent with moderately severe pulmonary hypertension. Estimated right atrial pressure is 3 mmHg (although IVC not seen). - Exam was compared with the prior echocardiographic exam performed on 03/05/2023. There is now evidence of moderately severe tricuspid insufficiency. RVSP estimate has increased also. Transesophageal Echo 03/03/2022: - Exam indication: 45d Watchman follow-up - The left ventricle is normal in size. Left ventricular systolic function is moderately decreased. EF = 38 ? 5% (visual est.) - The right ventricle is normal in size. Right ventricular systolic function is moderately to severely decreased. - The left atrial cavity is dilated. Small Watchman roderick-device leak measuring 2mm (clip 14). - The right atrial cavity is dilated. - There is moderately severe (3+) mitral valve regurgitation due to restricted leaflet motion. Mitral Pk/Mn gradient of 16/8 mmHg at 111 bpm (prior 15/8 mmHg at 96 bpm). - Cryolife prosthetic aortic valve (size #28). There is moderate (2+ - 3+) aortic valve regurgitation. - PPM in situ. - Exam was compared with the prior CC PROECHO echocardiographic exam performed on 01/12/2022. Small 2mm Watchman para-device leak seen. More LV and RV dysfunction reported. Echocardiogram 10/08/2020: - Technically difficult exam due to body habitus. - Exam indication: Routine surveillance of prosthetic valve (>3yrs) - The left ventricle is moderately dilated. Left ventricular systolic function is normal. EF = 58 ? 5% (2D biplane) Indeterminate left ventricular diastolic dysfunction due to mitral valve surgery. - The right ventricle is normal in size. Right ventricular systolic function is low normal. - The left atrial cavity is severely dilated. - There is moderate (2+) mitral valve regurgitation. Regurgitant orifice area (PISA) is 0.15 cm?. - Cryolife prosthetic aortic valve (size #28). There is mild (1+ - 2+) aortic valve regurgitation. The peak gradient is 36 mmHg, the mean gradient is 19 mmHg and the dimensionless valve index is 0.32. - Estimated right ventricular systolic pressure is 70 mmHg consistent with moderately severe pulmonary hypertension. Estimated right atrial pressure is 8 mmHg based on IVC assessment. - Exam was compared with the prior CC echocardiographic exam performed on 03/22/2020, no significant change. Echocardiogram 03/22/20: CONCLUSIONS: - Exam indication: Routine surveillance of prosthetic valve (>3yrs) - The left ventricle is mildly dilated. There is mild concentric left ventricular hypertrophy. Left ventricular systolic function is normal. EF = 60 ? 5% (2D biplane) Grade II left ventricular diastolic dysfunction. - The right ventricle is normal in size. Right ventricular systolic function is normal. - The left atrial cavity is severely dilated. - There is moderate (2+ - 3+) mitral valve regurgitation. Regurgitant orifice area (PISA) is 0.15 cm?. - Cryolife prosthetic aortic valve (size #28). There is mild (1+ - 2+) aortic valve regurgitation. The peak gradient is 47 mmHg, the mean gradient is 23 mmHg nd the dimensionless valve index is 0.32. Prior pk/mn gradients of 24/14 mmHg. - Exam was compared with the prior CC echocardiographic exam performed on 10/24/2018, AV gradients higher on today's study. Carotid Ultrasound 01/27/2023: IMPRESSION Compared to prior study of 10/24/2018, Right internal carotid artery increase from 20-39 - 40-59% stenosis. No significant change in the left internal carotid artery. Elevated velocities noted in the left subclavian artery. *High resistive signal noted bilateral common carotid arteries. RIGHT SIDE Common carotid artery: Plaque visualized without evidence of hemodynamically significant stenosis. Internal carotid artery: 40-59% stenosis. Vertebral artery: Patent and antegrade flow noted. LEFT SIDE Common carotid artery: Plaque visualized without evidence of hemodynamically significant stenosis. Internal carotid artery: 40-59% stenosis. Tortuous vessel at proximal . Vertebral artery: Patent and antegrade flow noted. Subclavian artery: 50-99% stenosis. Carotid Ultrasound 10/24/18: IMPRESSION Irregular heart rhythm noted. RIGHT SIDE Common carotid artery: Plaque visualized without evidence of hemodynamically significant stenosis. Internal carotid artery: 20-39% stenosis. Findings may be underestimated due to calcified shadowing plaque at proximal . Vertebral artery: Patent and antegrade flow noted. LEFT SIDE Common carotid artery: Plaque visualized without evidence of hemodynamically significant stenosis. Internal carotid artery: 40-59% stenosis. Vertebral artery: Patent and antegrade flow noted. Subclavian artery: Plaque visualized without evidence of hemodynamically significant stenosis. CT Chest 04/30/2023: Heart, pericardium, and thoracic vessels: Unchanged dilatation of the ascending thoracic aorta which measures 4.5 cm in diameter. Prosthetic aortic valve. Bilateral atrial enlargement. Atrial appendage device. Coronary artery atherosclerotic calcifications are noted, although the study is not optimized for coronary assessment. No pericardial effusion or thickening. CT Chest Dilated ascending aorta 4.5 cm. Biatrial enlargement. Findings of right heart dysfunction. Coronary artery calcifications CT Kidney 02/13/20 IMPRESSION: STABLE 2.2 CM SOLID, HOMOGENOUSLY ENHANCING RIGHT UPPER POLE RENAL NEOPLASM. NO RETROPERITONEAL LYMPHADENOPATHY, RENAL VEIN THROMBUS, OR OTHER METASTATIC DISEASE. Right kidney: 2.2 x 2.2 x 2.1 cm solid, homogenously enhancing upper pole neoplasm (8:23 and 10:56), stable in size since 05/16/2019 CT and new since remote imaging 07/30/2015 CTA - possibly due to phase of exam. No calculus. Vasculature: The celiac axis and SMA are patent but of which have moderate to severe narrowing near the origins due to atherosclerotic plaque/calcification.. The portal vein and branches, splenic vein, SMV, and hepatic veins are patent. Arterial atherosclerotic disease without aneurysm. CT Aota/Fem Runoff 07/30/15 IMPRESSION: Diffuse atherosclerotic disease. Occlusion of the superficial femoral arteries bilaterally with distal reconstitution through collateral branches. Three vessels runoff throughout the legs bilaterally. High degree stenosis of the celiac origin and proximal SMA as detail above. High degree stenoses of the renal artery origins with heavily calcified atherosclerotic plaque. DUAL LEAD PPM REMOTE EVALUATION 10/04/2024: * Stored EGMs are consistent with or suggestive of Atrial Fibrillation * AT/AF Speed: 67.8% * Total number of events: 2774 Tachycardia: AF w/RVR * Stored EGMs listed as NSVT AND SVT are consistent with or suggestive of Atrial Fibrillation with Rapid Ventricular Response * AT/AF Speed: 67.8% * Total episodes: 9 * Longest episode: 28 SECS * Fastest episode:207 BPM IMPRESSION: Ms. Sanches is a 78 year old woman with an extensive cardiac history. She had undergone aortic valve replacement 1996 with a homograft and possible repair of the ascending aorta. She informed me that her preoperative cardiac catheterization demonstrated no significant obstructive coronary disease. She has a remote smoking history with a history of significant secondhand smoke exposure. 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 She underwent SMA stent placement at [facility] September 2024. She has been treated for paroxysmal atrial fibrillation and has undergone an ablation procedure. Her atrial fibrillation is now persistent. She has had a watchman device placed dueto history of GI bleed and intolerance to anticoagulation therapy. She has a history of pulmonary hypertension and right-sided congestive heart failure. She has a dual-chamber pacemaker placement for sinus node dysfunction and chronotropic incompetence. She has a history of chronic diastolic congestive heart failure in the setting of chronic kidney disease. She presents the office for follow-up. PLAN AND RECOMMENDATIONS: 1. History of prosthetic aortic valve replacement - ICD9: V43.3, ICD10: Z95.2 (primary diagnosis) Well-functioning bioprosthetic aortic valve noted on most recent echocardiogram. 2. Chronic diastolic (congestive) heart failure (HCC) - ICD9: 428.32, 428.0, ICD10: I50.32 I am concerned the patient is has worsening right-sided heart failure due to pulmonary hypertension. She has an increase in her BUN and creatinine over her most recent baseline. Will attempt a trial of torsemide 20 mg twice daily in place of Lasix. Will continue spironolactone . I have asked her to hold her losartan. Will repeat blood work in 5 to 6 days - TORSEMIDE 20 MG TABLET - BASIC METABOLIC PANEL - NT PRO BNP - TORSEMIDE 20 MG TABLET 3. Ascending aorta dilatation - ICD9: 447.71, ICD10: I77.810 4. Longstanding persistent atrial fibrillation (HCC) - ICD9: 427.31, ICD10: I48.11 Status post Watchman procedure. Not on anticoagulation due to history of GI bleed 5. S/P placement of cardiac pacemaker - ICD9: V45.01, ICD10: Z95.0 6. PAD (peripheral artery disease) - ICD9: 443.9, ICD10: I73.9 Currently on Plavix therapy after recent peripheral intervention 7. 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HCC) - ICD9: 557.0, ICD10: K55.069 8. Hyperlipidemia with target LDL less than 70 - ICD9: 272.4, ICD10: E78.5 Maintained on atorvastatin 40 mg daily 9. Primary hypertension - ICD9: 401.9, ICD10: I10 Holding losartan due to renal insufficiency. May consider hydralazine for treatment of hypertension 10. Bilateral carotid artery stenosis - ICD9: 433.10, 433.30, ICD10: I65.23 Carla Arriaga MD CNOV Observed: 11/06/2024 2:40 PM Status: COMPLETED Source: [facility] Office Visit (JOHNNY) BERTA SANCHES ([id number]) 1945 F [facility] Date Time Provider Department 11/06/24 2:40 PM CARLA ARRIAGA During your visit today, we recorded the following information about you: Pulse Respiration Blood pressure Weight 68/minute 12/minute 134/54 68.9 kg Height 1.575 m Carla Arriaga MD 11/06/2024 5:01 PM Signed [facility] Cardiology ([facility]) [address] [facility] [id number] OUTPATIENT VISIT DATE 11/06/2024 PRIMARY CARE PHYSICIAN: Doreen Le [address] [place] [address] HISTORY OF PRESENT ILLNESS: Ms. Sanches is a 79 year old woman with a history of remote aortic valve replacement with homograft in 1996 and possible repair of the ascending aorta, chronic diastolic congestive heart failure, hypertension, dyslipidemia, atrial fibrillation with history of pulmonary vein isolation procedures, pacemaker placement and watchman procedure who presents for follow-up. Patient was admitted to the hospital while vacationing in [place]. She underwent SMA stent placement. This was followed by a long admission for decompensated congestive heart failure in the setting of the renal insufficiency. Since returning from [place], she has had difficulties with weight gain and lower extremity edema. She was seen in the heart failure clinic last Wednesday. She was given a dose of IV Lasix but states she had no significant weight loss after that treatment. She has been compliant with her Lasix and low-sodium diet. She has noticed no improvement in taking her Lasix. She denies overt chest pain or chest pressure. 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 Aaron [facility] Bilateral carotid artery stenosis 11/26/2016 05/27/16 moderate 50-69% stenosis right and left Bilateral pneumonia 07/20/2015 Cancer of cervix (HCC) Cervical cancer (HCC) 1973 Chest pain 06/01/2015 negative work up with nuclar stress CHF (congestive heart failure) (HCC) Cholesteatoma of right ear surgical removal Chronic mastoiditis of left side Chronic renal failure, stage 3b (HCC) 04/15/2022 Diabetes (HCC) Diabetes (HCC) GERD (gastroesophageal reflux disease) H/O: GI bleed High blood pressure Hypercholesterolemia Mastoiditis of right side s/p mastoidectomy, complete opacitificationright tympanic cavity and mastoid cells on CT 06/01/16 Mitral valve regurgitation Pacemaker 10/21/[address] TRELL VERNON [id number] pulse generator, his bundle lead, right atrial lead Peripheral arterial disease Rheumatic fever Steatosis, liver 03/26/2014 fatty liver on US. 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 Lua PACEMAKER 10/2019 PART. HYSTERECTOMY W/WO RMVL OVARIES/TUBES 1974 h/o cervical cancer ovaries remain PAST SURGICAL HISTORY OF 1996 Aortic valve repair, Dr. Apodaca PAST SURGICAL HISTORY OF 2001 [address] Beltrán, [facility] PAST SURGICAL HISTORY OF 2015 clipping and coil for brain aneurysm SOCIAL HISTORY Social History Tobacco Use Smoking status: Former Current packs/day: 0.00 Average packs/day: 0.3 packs/day for 2.0 years (0.5 ttl pk-yrs) Types: Cigarettes Start date: 1965 Quit date: 1967 Years since quittin.3 Smokeless tobacco: Never Vaping Use Vaping status: Never Used Substance Use Topics Alcohol use: Not Currently Alcohol/week: 1.0 standard drink of alcohol Types: 1 Glasses of Wine (5oz) per week Comment: red wine 2-3 times a week- occasional Drug use: No FAMILY HISTORY Problem Relation Age of Onset other (Heart Problems) Mother other (myocardial infarction) Mother other (cardiovascular disease) Mother other (Heart Attack) Father other (cardiovascular disease) Father Diabetes Maternal Grandmother ALLERGIES: ALLERGIES Allergen Reactions Protamine Anaphylaxis Had acute drop in blood pressure and end tidal Co2 shortly after administration during watchman procedure on 01/12/22, treated with 60 mcg epinephrine and 10 mg dexamethasone with good response. Propofol Other: See Comments Hypotension MEDICATIONS: clopidogrel (PLAVIX) 75 mg tablet Take 75 mg by mouth once daily. pantoprazole DR (PROTONIX) 40 mg tablet Take 40 mg by mouth once daily. atorvastatin (LIPITOR) 40 mg tablet Take 40 mg by mouth once daily. aspirin 81 mg chewable tablet Take 1 tablet by mouth once daily. metoprolol succinate ER (TOPROL XL) 50 mg 24 hr tablet Take 1 tablet by mouth two times a day. potassium chloride (K-TAB) 10 mEq tablet Take 1 tablet by mouth once daily. (Patient taking differently: Take 10 mEq by mouth two times a day.) Blood Pressure Monitor (BLOOD PRESSURE KIT) 1 Each once daily. acetaminophen (TYLENOL) 500 mg tablet Take 1-2 tablets by mouth every 6 hours as needed. blood sugar diagnostic (BLOOD GLUCOSE TEST) test strip Test blood sugar(s) 2 times daily. Dx: Type 2 DM - Controlled E11.9 Insulin: No spironolactone (ALDACTONE) 25 mg tablet Take 1 tablet by mouth two times a day. torsemide (DEMADEX) 20 mg tablet Take 1 tablet by mouth two times a day. omeprazole (PRILOSEC) 40 mg capsule Take 1 capsule by mouth once daily. UBIDECARENONE (COQ-10 ORAL) Take 1 capsule by mouth once daily. (Patient not taking: Reported on 11/06/2024) REVIEW OF SYSTEMS: Review of Systems Constitutional: Negative for chills, fever, malaise/fatigue and weight loss. HENT: Negative for hearing loss and sore throat. Eyes: Negative for blurred vision and double vision. Respiratory: Negative. Cardiovascular: Negative. Genitourinary: Negative for dysuria, frequency, hematuria and urgency. Musculoskeletal: Negative. Skin: Negative. Neurological: Negative for dizziness, seizures, loss of consciousness, weakness and headaches. Endo/Heme/Allergies: Negative for environmental allergies. Does not bruise/bleed easily. Psychiatric/Behavioral: Negative for depression. PHYSICAL EXAMINATION: BP 134/54 (BP Site: Right Arm, BP Position: Sitting, BP Cuff Size: Large Adult) Pulse 68 Resp 12 Ht 157.5 cm (5' 2") Wt 68.9 kg (152 lb) SpO2 100% BMI 27.80 kg/m? General: Very pleasant woman sitting appears comfortable in no apparent distress. She is alert and oriented x3. HEENT: Carotid upstrokes are brisk bilaterally. Left carotid bruit noted. No JVD noted at 90 degrees. Pulmonary: Lungs are clear no rales, wheezes, rhonchi Cardiovascular: Normal S1-S2 with regular rate with an irregularly irregular tachycardia rhythm. Mid peaking 2/6 crescendo decrescendo murmur right upper sternal border. Extremities: Warm, well-perfused, 2-3+ pitting edema to the knees bilaterally. Distal pulses are difficult to palpate. CARDIOVASCULAR MEDICINE TESTING: Right Heart Catheterization [facility] 10/24/2024: Cardiac output (Qs) !4.1L/min ! + + + !Cardiac index !2.42L/(min-m2) ! + + + !HR, R-R, stroke volume !92bpm, 45ml ! + + + !RA pressure a/v (m) ! (23) ! + + + !PA pressure s/d (m) !85/28 (51) ! + + + !PA wedge a/v (m) !/24 (23) ! + + + !Aortic pressure s/d (m) !163/81 (108) ! + + + !SVR !1650dyn-sec/cm5 ! + + + !SVRI !4855ugu-bgy-b7/cm5 ! + + + !PVR !544dyn-sec/cm5 ! + + + !PVRI !886evr-dje-d4/cm5 ! + + + !Total systemic resistance!2097dyn-sec/cm5, 9280unc-yag-a3/cm5! Echocardiogram [facility] 10/03/2024: 1. Left ventricle: The cavity size is normal. Wall thickness was increased in a pattern of mild LVH. Left ventricular geometry shows evidence of eccentric hypertrophy, with increased ventricular mass and normal relative wall thickness. Systolic function was normal. The estimated ejection fraction was in the range of 55% to 60%, by visual assessment. Wall motion was normal; there were no regional wall motion abnormalities. 2. Aortic valve: There is a bioprosthetic valve. The valve leaflets are not well visualized. Transvalvular velocity is within the normal range. There is no stenosis. There is trivial paravalular regurgitation. There is no central regurgitation. The mean systolic gradient is 9.00mm Hg. The valve area by the velocity-time integral method is 1.5cm2. The valve area by the peak velocity method is 1.5cm2. 3. Mitral valve: The leaflets are mildly thickened and calcified. Mobility was normal. The valve area (LVOT continuity) is 2.1cm2. 4. Left atrium: The atrium is severely dilated. 5. Right ventricle: The cavity size is mildly dilated. Pacer wire or catheter noted in right ventricle. Systolic function is mildly reduced. Systolic pressure was increased. 6. Right atrium: The atrium is dilated. 7. Pulmonic valve: There is mild regurgitation. 8. Pulmonary arteries: Systolic pressure is moderately increased. The peak pressure during systole by Doppler is 54mm Hg. 9. Inferior vena cava: The vessel was dilated. The respirophasic diameter changes were blunted (< 50%), consistent with elevated central venous pressure. Echocardiogram 11/10/2023: - The left ventricle is mildly dilated. Left ventricular systolic function is normal. EF = 58 ? 5% (2D biplane) Left ventricular diastolic function was not evaluated due to AF. - The right ventricle is dilated. Right ventricular systolic function is mildly decreased. - The left atrial cavity is moderately dilated. - The right atrial cavity is dilated. - There is mild to moderate (1-2+) mitral regurgitation. - There is moderate (2+) tricuspid valve regurgitation. - Cryolife Homograft prosthetic aortic valve (size #28). There is moderate (2+ - 3+) aortic valve regurgitation. - There is moderate (2+) pulmonic valve regurgitation. - Estimated right ventricular systolic pressure is 73 mmHg consistent with moderately severe pulmonary hypertension. Estimated right atrial pressure is 15 mmHg based on IVC assessment. - Exam was compared with the prior CC echocardiographic exam performed on 10/28/23. The patient is now in atrial fibrillation. LV function has slightly improved. Echocardiogram 10/28/2023: - The left ventricle is mildly dilated. There is mild concentric left ventricular hypertrophy. Left ventricular systolic function is mildly decreased. EF = 51 ? 5% (2D 4-ch.) Indeterminate left ventricular diastolic dysfunction. - The right ventricle is dilated. Right ventricular systolic function is mildly decreased. - The left atrial cavity is severely dilated. - The right atrial cavity is dilated. - The visualized aorta is dilated with a maximal dimension of 4.6 cm. - There is moderate (2+) holosystolic mitral valve regurgitation. - There is moderately severe (3+) tricuspid valve regurgitation. - Cryolife Homograft prosthetic aortic valve (size #28). There is moderate (2+) aortic valve regurgitation. The peak gradient is 25 mmHg, the mean gradient is 12 mmHg and the dimensionless valve index is 0.34. Prior pk/mn gradients were 29/14 mmHg. - Estimated right ventricular systolic pressure is 75 mmHg consistent with moderately severe pulmonary hypertension. Estimated right atrial pressure is 3 mmHg (although IVC not seen). - Exam was compared with the prior CC echocardiographic exam performed on 03/05/2023. There is now evidence of moderately severe tricuspid insufficiency. RVSP estimate has increased also. Transesophageal Echo 03/03/2022: - Exam indication: 45d Watchman follow-up - The left ventricle is normal in size. Left ventricular systolic function is moderately decreased. EF = 38 ? 5% (visual est.) - The right ventricle is normal in size. Right ventricular systolic function is moderately to severely decreased. - The left atrial cavity is dilated. Small Watchman roderick-device leak measuring 2mm (clip 14). - The right atrial cavity is dilated. - There is moderately severe (3+) mitral valve regurgitation due to restricted leaflet motion. Mitral Pk/Mn gradient of 16/8 mmHg at 111 bpm (prior 15/8 mmHg at 96 bpm). - Cryolife prosthetic aortic valve (size #28). There is moderate (2+ - 3+) aortic valve regurgitation. - PPM in situ. - Exam was compared with the prior PROECHO echocardiographic exam performed on 01/12/2022. Small 2mm Watchman para-device leak seen. More LV and RV dysfunction reported. Echocardiogram 10/08/2020: - Technically difficult exam due to body habitus. - Exam indication: Routine surveillance of prosthetic valve (>3yrs) - The left ventricle is moderately dilated. Left ventricular systolic function is normal. EF = 58 ? 5% (2D biplane) Indeterminate left ventricular diastolic dysfunction due to mitral valve surgery. - The right ventricle is normal in size. Right ventricular systolic function is low normal. - The left atrial cavity is severely dilated. - There is moderate (2+) mitral valve regurgitation. Regurgitant orifice area (PISA) is 0.15 cm?. - Cryolife prosthetic aortic valve (size #28). There is mild (1+ - 2+) aortic valve regurgitation. The peak gradient is 36 mmHg, the mean gradient is 19 mmHg and the dimensionless valve index is 0.32. - Estimated right ventricular systolic pressure is 70 mmHg consistent with moderately severe pulmonary hypertension. Estimated right atrial pressure is 8 mmHg based on IVC assessment. - Exam was compared with the prior echocardiographic exam performed on 03/22/2020, no significant change. Echocardiogram 03/22/20: CONCLUSIONS: - Exam indication: Routine surveillance of prosthetic valve (>3yrs) - The left ventricle is mildly dilated. There is mild concentric left ventricular hypertrophy. Left ventricular systolic function is normal. EF = 60 ? 5% (2D biplane) Grade II left ventricular diastolic dysfunction. - The right ventricle is normal in size. Right ventricular systolic function is normal. - The left atrial cavity is severely dilated. - There is moderate (2+ - 3+) mitral valve regurgitation. Regurgitant orifice area (PISA) is 0.15 cm?. - Cryolife prosthetic aortic valve (size #28). There is mild (1+ - 2+) aortic valve regurgitation. The peak gradient is 47 mmHg, the mean gradient is 23 mmHg nd the dimensionless valve index is 0.32. Prior pk/mn gradients of 24/14 mmHg. - Exam was compared with the prior CC echocardiographic exam performed on 10/24/2018, AV gradients higher on today's study. Carotid Ultrasound 01/27/2023: IMPRESSION Compared to prior study of 10/24/2018, Right internal carotid artery increase from 20-39 - 40-59% stenosis. No significant change in the left internal carotid artery. Elevated velocities noted in the left subclavian artery. *High resistive signal noted bilateral common carotid arteries. RIGHT SIDE Common carotid artery: Plaque visualized without evidence of hemodynamically significant stenosis. Internal carotid artery: 40-59% stenosis. Vertebral artery: Patent and antegrade flow noted. LEFT SIDE Common carotid artery: Plaque visualized without evidence of hemodynamically significant stenosis. Internal carotid artery: 40-59% stenosis. Tortuous vessel at proximal . Vertebral artery: Patent and antegrade flow noted. Subclavian artery: 50-99% stenosis. Carotid Ultrasound 10/24/18: IMPRESSION Irregular heart rhythm noted. RIGHT SIDE Common carotid artery: Plaque visualized without evidence of hemodynamically significant stenosis. Internal carotid artery: 20-39% stenosis. Findings may be underestimated due to calcified shadowing plaque at proximal . Vertebral artery: Patent and antegrade flow noted. LEFT SIDE Common carotid artery: Plaque visualized without evidence of hemodynamically significant stenosis. Internal carotid artery: 40-59% stenosis. Vertebral artery: Patent and antegrade flow noted. Subclavian artery: Plaque visualized without evidence of hemodynamically significant stenosis. CT Chest 04/30/2023: Heart, pericardium, and thoracic vessels: Unchanged dilatation of the ascending thoracic aorta which measures 4.5 cm in diameter. Prosthetic aortic valve. Bilateral atrial enlargement. Atrial appendage device. Coronary artery atherosclerotic calcifications are noted, although the study is not optimized for coronary assessment. No pericardial effusion or thickening. CT Chest Dilated ascending aorta 4.5 cm. Biatrial enlargement. Findings of right heart dysfunction. Coronary artery calcifications CT Kidney 02/13/20 IMPRESSION: STABLE 2.2 CM SOLID, HOMOGENOUSLY ENHANCING RIGHT UPPER POLE RENAL NEOPLASM. NO RETROPERITONEAL LYMPHADENOPATHY, RENAL VEIN THROMBUS, OR OTHER METASTATIC DISEASE. Right kidney: 2.2 x 2.2 x 2.1 cm solid, homogenously enhancing upper pole neoplasm (8:23 and 10:56), stable in size since 05/16/2019 CT and new since remote imaging 07/30/2015 CTA - possibly due to phase of exam. No calculus. Vasculature: The celiac axis and SMA are patent but of which have moderate to severe narrowing near the origins due to atherosclerotic plaque/calcification.. The portal vein and branches, splenic vein, SMV, and hepatic veins are patent. Arterial atherosclerotic disease without aneurysm. CT Aota/Fem Runoff 07/30/15 IMPRESSION: Diffuse atherosclerotic disease. Occlusion of the superficial femoral arteries bilaterally with distal reconstitution through collateral branches. Three vessels runoff throughout the legs bilaterally. High degree stenosis of the celiac origin and proximal SMA as detail above. High degree stenoses of the renal artery origins with heavily calcified atherosclerotic plaque. DUAL LEAD PPM REMOTE EVALUATION 10/04/2024: * Stored EGMs are consistent with or suggestive of Atrial Fibrillation * AT/AF Speed: 67.8% * Total number of events: 2774 Tachycardia: AF w/RVR * Stored EGMs listed as NSVT AND SVT are consistent with or suggestive of Atrial Fibrillation with Rapid Ventricular Response * AT/AF Speed: 67.8% * Total episodes: 9 * Longest episode: 28 SECS * Fastest episode:207 BPM IMPRESSION: Ms. Sanches is a 78 year old woman with an extensive cardiac history. She had undergone aortic valve replacement 1996 with a homograft and possible repair of the ascending aorta. She informed me that her preoperative cardiac catheterization demonstrated no significant obstructive coronary disease. She has a remote smoking history with a history of significant secondhand smoke exposure. 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 She underwent SMA stent placement at [facility] September 2024. She has been treated for paroxysmal atrial fibrillation and has undergone an ablation procedure. Her atrial fibrillation is now persistent. She has had a watchman device placed due to history of GI bleed and intolerance to anticoagulation therapy. She has a history of pulmonary hypertension and right-sided congestive heart failure. She has a dual-chamber pacemaker placement for sinus node dysfunction and chronotropic incompetence. She has a history of chronic diastolic congestive heart failure in the setting of chronic kidney disease. She presents the office for follow-up. PLAN AND RECOMMENDATIONS: 1. History of prosthetic aortic valve replacement - ICD9: V43.3, ICD10: Z95.2 (primary diagnosis) Well-functioning bioprosthetic aortic valve noted on most recent echocardiogram. 2. Chronic diastolic (congestive) heart failure (HCC) - ICD9: 428.32, 428.0, ICD10: I50.32 I am concerned the patient is has worsening right-sided heart failure due to pulmonary hypertension. She has an increase in her BUN and creatinine over her most recent baseline. Will attempt a trial of torsemide 20 mg twice daily in place of Lasix. Will continue spironolactone . I have asked her to hold her losartan. Will repeat blood work in 5 to 6 days - TORSEMIDE 20 MG TABLET - BASIC METABOLIC PANEL - NT PRO BNP - TORSEMIDE 20 MG TABLET 3. Ascending aorta dilatation - ICD9: 447.71, ICD10: I77.810 4. Longstanding persistent atrial fibrillation (HCC) - ICD9: 427.31, ICD10: I48.11 Status post Watchman procedure. Not on anticoagulation due to history of GI bleed 5. S/P placement of cardiac pacemaker - ICD9: V45.01, ICD10: Z95.0 6. PAD (peripheral artery disease) - ICD9: 443.9, ICD10: I73.9 Currently on Plavix therapy after recent peripheral intervention 7. 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HCC) - ICD9: 557.0, ICD10: K55.069 8. Hyperlipidemia with target LDL less than 70 - ICD9: 272.4, ICD10: E78.5 Maintained on atorvastatin 40 mg daily 9. Primary hypertension - ICD9: 401.9, ICD10: I10 Holding losartan due to renal insufficiency. May consider hydralazine for treatment of hypertension 10. Bilateral carotid artery stenosis - ICD9: 433.10, 433.30, ICD10: I65.23 MD Joan Beard, Carla Rosas MD 11/06/2024 3:37 PM Addendum We are changing the Furosemide to Torsemide 20 mg two times per day Stop taking the Losartan Allergies As of Date: 11/06/2024 Noted Allergy Reaction PROTAMINE 01/12/2022 10 - Anaphylaxis Comments: Had acute drop in blood pressure and end tidal Co2 shortly after administration during watchman procedure on 01/12/22, treated with 60 mcg epinephrine and 10 mg dexamethasone with good response. PROPOFOL 04/07/2023 14 - Other: See Comments Comments: Hypotension Date Reviewed: 11/06/2024 Reviewed by: Carla Arriaga MD - Fully Assessed Reason for Visit: Follow Up [171] Cmt: hospital follow up- CHF in [facility] for 23 days, discharged October 28 Primary Visit Diagnosis:History of prosthetic aortic valve replacement [Z95.2] Other Visit Diagnoses:Chronic diastolic (congestive) heart failure (HCC) [I50.32] Ascending aorta dilatation [I77.810] Longstanding persistent atrial fibrillation (HCC) [I48.11] S/P placement of cardiac pacemaker [Z95.0] PAD (peripheral artery disease) [I73.9] 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HCC) [K55.069] Hyperlipidemia with target LDL less than 70 [E78.5] Primary hypertension [I10] Bilateral carotid artery stenosis [I65.23] Order(s):BASIC METABOLIC PANEL [SQBMP] Order #: [id number] FUTURE NT PRO BNP [SQNTBNP] Order #: [id number] FUTURE torsemide (DEMADEX) 20 mg tabletTake 1 tablet by mouth two times a day.Disp: 180 tabletRfl: 3 Prescriptions as of 11/06/2024 - spironolactone (ALDACTONE) 25 mg tablet Take 1 tablet by mouth two times a day. - torsemide (DEMADEX) 20 mg tablet Take 1 tablet by mouth two times a day. - clopidogrel (PLAVIX) 75 mg tablet Take 75 mg by mouth once daily. - pantoprazole DR (PROTONIX) 40 mg tablet Take 40 mg by mouth once daily. - atorvastatin (LIPITOR) 40 mg tablet Take 40 mg by mouth once daily. - aspirin 81 mg chewable tablet Take 1 tablet by mouth once daily. - metoprolol succinate ER (TOPROL XL) 50 mg 24 hr tablet Take 1 tablet by mouth two times a day. - potassium chloride (K-TAB) 10 mEq tablet Take 1 tablet by mouth once daily. - omeprazole (PRILOSEC) 40 mg capsule Take 1 capsule by mouth once daily. - Blood Pressure Monitor (BLOOD PRESSURE KIT) 1 Each once daily. - acetaminophen (TYLENOL) 500 mg tablet Take 1-2 tablets by mouth every 6 hours as needed. - blood sugar diagnostic (BLOOD GLUCOSE TEST) test strip Test blood sugar(s) 2 times daily. Dx: Type 2 DM - Controlled E11.9 Insulin: No - UBIDECARENONE (COQ-10 ORAL) Take 1 capsule by mouth once daily. Problem List As Of Date 11/06/2024 Noted Resolved History of prosthetic aortic valve replacement *10/10/2013 Aortic prosthetic valve regurgitation [T82.897A]10/10/2013 Paroxysmal atrial fibrillation (HCC) [I48.0] 10/10/2013 04/11/2023 HTN (hypertension) [I10] 10/10/2013 Hyperlipidemia with target LDL less than 70 [E7*11/20/2013 Type 2 diabetes mellitus without complication, *11/20/2013 09/12/2021 GERD (gastroesophageal reflux disease) [K21.9] 11/20/2013 Chronic anticoagulation [Z79.01] 11/20/2013 Fatigue [R53.83] 11/20/2013 SOB (shortness of breath) [R06.02] 11/20/2013 11/12/2023 H/O rheumatic heart disease [Z86.79] 11/20/2013 SUMMARY [V999.95] 12/09/2013 12/22/2018 Carotid artery disease (HCC) [I77.9] 12/09/2013 09/12/2021 Routine health maintenance [Z00.00] 01/08/2014 09/12/2021 Basal cell carcinoma [C44.91] 01/08/2014 Left shoulder pain [M25.512] 02/26/2014 Abdominal pain [R10.9] 02/26/2014 03/21/2022 Intracranial aneurysm [I67.1] 08/30/2015 10/05/2022 prison current use of antiarrhythmic medical*10/20/2016 09/12/2021 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] 11/19/2016 12/22/2018 Bilateral carotid artery stenosis [I65.23] 11/26/2016 Osteopenia of left lower leg [M85.862] 11/26/2016 Mastoiditis of right side [H70.91] 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] Personal history of colonic polyps [Z86.0100] 01/06/2017 Aortic stenosis [I35.0] 01/06/2017 12/22/2018 History of ischemic colitis [Z87.19] 01/06/2017 Adenomatous polyp of descending colon [D12.4] 01/06/2017 Skin cancer [C44.90] 01/06/2017 PAD (peripheral artery disease) (HCC) [I73.9] 01/06/2017 Pedro aneurysm of anterior communicating artery* Stage 3 chronic renal impairment associated wit*03/11/2017 Other chest pain [R07.89] 03/27/2019 09/19/2020 History of pulmonary embolism [Z86.711] 03/27/2019 Ascending aorta dilatation (HCC) [I77.810] 03/27/2019 Chronic bilateral pleural effusions [J90] 03/27/2019 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] 06/15/2019 Right renal mass [N28.89] 06/16/2019 Diverticulitis of large intestine with perforat*06/16/2019 09/12/2021 Diverticulitis large intestine w/o perforation *07/18/2019 Renal cell carcinoma, right (HCC) [C64.1] 10/17/2019 Iron deficiency anemia [D50.9] 10/24/2019 Anemia due to GI blood loss [D50.0] 10/24/2019 03/22/2022 Renal cell carcinoma (HCC) [C64.9] 10/24/2019 09/12/2021 Hypomagnesemia [E83.42] 10/26/2019 Gastrointestinal hemorrhage associated with acu*02/15/2020 Esophageal stenosis [K22.2] 10/28/2019 Dilated cardiomyopathy (HCC) [I42.0] 03/22/2020 Acute on chronic combined systolic and diastoli*09/19/2020 11/12/2023 SSS (sick sinus syndrome) (HCC) [I49.5] 10/21/2020 Encounter for support and coordination of trans*02/15/2021 09/12/2021 Duodenal ulcer [K26.9] 05/20/2021 Type 2 diabetes mellitus with diabetic peripher*09/12/2021 Atrial fibrillation (HCC) [I48.91] 01/12/2022 04/11/2023 Melena [K92.1] 02/22/2022 02/24/2022 Acute kidney injury (HCC) [N17.9] 02/22/2022 02/24/2022 Acute on chronic systolic heart failure (HCC) [*03/19/2022 03/22/2022 Longstanding persistent atrial fibrillation (HC*03/20/2022 S/P placement of cardiac pacemaker [Z95.0] 03/20/2022 CKD (chronic kidney disease) [N18.9] 03/21/2022 Platelet inhibition due to Plavix [Z79.02] 03/21/2022 Diverticulosis [K57.90] 03/21/2022 Lung nodule, solitary [R91.1] 03/22/2022 Red blood cell antibody positive [R76.8] 03/23/2022 Iron 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 *04/07/2022 Iron malabsorption [K90.9] 04/07/2022 Chronic renal failure, stage 3b (HCC) [N18.32] 04/15/2022 Spondylolisthesis at L4-L5 level [M43.16] 07/07/2022 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 Chronic diastolic (congestive) heart failure (H*11/09/2023 Other instructions from your clinician: We are changing the Furosemide to Torsemide 20 mg two times per day Stop taking the Losartan Prescriptions ordered this encounter Disp Refills Start End TORSEMIDE 20 MG TABLET 180 * 3 11/06/2024 11/06/2024 Route: ORAL Sig: Take 1 tablet by mouth two times a day. TORSEMIDE 20 MG TABLET 180 * 3 11/06/2024 Route: ORAL Sig: Take 1 tablet by mouth two times a day. Medications Discontinued During This Encounter Prescriptions - furosemide (LASIX) 20 mg tablet (Discontinued) Take 2 tablets by mouth once daily. TAKE AN EXTRA 20 MG in the afternoon if you note greater than 3 lbs weight gain in 24 hours - torsemide (DEMADEX) 20 mg tablet (Discontinued) Take 1 tablet by mouth two times a day. - losartan (COZAAR) 50 mg tablet (Discontinued) Take 1 tablet by mouth once daily. Disposition: Return in about 1 month (around 12/07/2024). Follow-up and Disposition History for Encounter Date Provider Department Center 11/06/2024 [id number] ARRIAGA Nancy Dae Encounter Status:Closed by CARLA ARRIAGA on 11/06/24 BAS METAB 2000 PNL SERPL Collected: 08/2024 10:24 AM Status: F Source: [facility] Order Comment: Specimen Type : BLOOD SPECIMEN Ordering Facility: [facility] Address: [address], [place] [address] TYPE CODE TESTS RESULT OUT OF RANGE REFERENCE UNITS LAB 2345-7(LOINC) Glucose SerPl-mCnc 114 High 74-99 mg/dL Result Comment: The [place] Diabetes [employer] (ADA) provides guidance for cutoff values for fasting glucose and random glucose. The ADA defines fasting as no caloric intake for at least 8 hours. Fasting plasma glucose results between 100 to 125 mg/dL indicate increased risk for diabetes (prediabetes). Fasting plasma glucose results greater than or equal to 126 mg/dL meet the criteria for diagnosis of diabetes. In the absence of unequivocal hyperglycemia, results should be confirmed by repeat testing. In a patient with classic symptoms of hyperglycemia or hyperglycemic crisis, random plasma glucose results greater than or equal to 200 mg/dL meet the criteria for diagnosis of diabetes. Reference: Standards of Medical Care in Diabetes 2016, [place] [employer] Association. Diabetes Care. 2016.39(Suppl 1). LAB 3094-0(LOINC) BUN SerPl-mCnc 57 High 7-21 mg/ dL LAB 2160-0(LOINC) Creat SerPl-mCnc 2.36 High 0.58-0.96 mg/dL LAB 2951-2(LOINC) Sodium SerPl-sCnc 122 Low 136-144 mmol/L LAB 2823-3(LOINC) Potassium SerPl-sCnc 4.3 3.7-5.1 mmol/L LAB 2075-0(LOINC) Chloride SerPl-sCnc 84 Low 98-107 mmol/L LAB 2027-9(LOINC) CO2 SerPl-sCnc 27 22-30 mmo l/L LAB 61530-5(LOINC) Anion Gap SerPl-sCnc 11 8-15 mmol/L LAB 08117-8(LOINC) Calcium SerPl-mCnc 9.1 8.5-10.2 mg/dL LAB 48717-7(LOINC) Creatinine + eGFR Pnl SerPlBld 20 Low >=60 mL/min/1. 73m??? Result Comment: Estimated Gl omerular Filtration Rate (eGFR) is calculated using the 2020 CKD-EPI creatinine equation. This equation utilizes serum creatinine, sex, and age as parameters. The creatinine assay has traceable calibration to isotope dilution-mass spectrometry. Refer to KDIGO guidelines for clinical interpretation. In patients with unstable renal function, e.g. those with acute kidney injury, the eGFR may not accurately reflect actual GFR. Performed By: #### [id number] # ### [facility] CLIA [id number] [address] [place], [place] [id number] [place] [address] STATES OF [facility] PROGRESS Observed: 11/03/2024 10:00 AM Status: COMPLETED Source: [facility] HNO ID: [id number] Author: GWEN VALENTINE, RN Service: ? Author Type: Registered Nurse Type: Progress Notes Filed: 11/03/2024 10:53 Note Text: Pt seen in outpatient CHF clinic. Lasix 20 mg IV ordered. IV started to right AC with 22g angiocath. Good blood return, no redness, no swelling. Lasix given and flushed per protocol. IV D/Cd, pressure held x 5 minutes. Dry dressing and coband applied. No bleeding, no swelling noted. Pt tolerated well. CNOV Observed: 11/03/2024 9:00 AM Status: COMPLETED Source: [facility] BERTA SANCHES ([id number]) 1945 F [facility] Date Time Provider Department 11/03/24 9:00 AM ALBIN GU [facility] During your visit today, we recorded the following information about you: Pulse Blood pressure Weight 66/minute 121/44 66.7 kg Albin Gu APRN.[employer] 11/03/2024 10:04 AM Addendum Continue current medications as prescribed. Consult to Nephrology placed. Labs to be drawn today. Will call with lab results once they are resulted. 2. Weigh yourself daily. Call me if your weight increases by 3-4 pounds in a 1-4 day period of time. 3. Continue low salt (2000 mg per day) diet. 4. Be as active as you are able. If you get tired, just stop and rest for a while. 5. Come back and see me on WednesdayNovember 21 at 1000. If you have any question or concern, you can call me at [phone]. Albin Gu APRN.CNP 11/03/2024 10:28 AM Signed [facility] OUTPATIENT VISIT DATE November 03, 2024 OUTPATIENT VISIT TYPE ESTABLISHED PRIMARY CARE PHYSICIAN: Deysi Nicholson APRN.JASPREET CHIEF COMPLAINT: Patient presents with: Breathing Problem Leg Edema HISTORY OF PRESENT ILLNESS: Berta Sanches is a 79 year old female who presents today for a follow-up visit in the Heart Failure Clinic. The patient was last seen in office 04/07. The following changes were made at that time: none. Past medical history is significant for hypertension, hyperlipidemia, valvular heart disease s/p aortic valve replacement, history of brain aneurysm s/p coiling, SSS s/p pacemaker 10/2020, A-fib, s/p Watchman 2021, history of rectal bleeding, diabetes mellitus. Patient has had 2 hospitalizations and/or emergency room encounters in the last 12 months. Most recent hospitalization was from 10/02 to 10/11 for abdominal pain and hematemesis. She is s/p left groin US guided femoral access mesenteric angiogram, angioplasty of SMA, 8 shockwave SMA, stenting of SMA viabahn 7 x 59 mm, DCB SMA Mynx closure on 10/02/2024. She was found to have MONIQUE on 10/03. Nephrology consulted and started CRRT. This was however, stopped on 10/05. Cardiology was consulted for atrial fibrillation which she developed post operatively. She was placed on amio gtt in which she then converted. Due to fluid overload, she was diuresed with IV lasix BID. At time of discharge, she was started on aspirin, atorvastatin, clopidogrel and pantoprazole. She was taken off spironolactone, losartan, simvastatin. Patient called HF Clinic on 10/12 to discuss recent hospitalization. At that time, the patient stated her admission weight was 136 lbs and when she arrived home from the hospital her weight was 157 lbs. She denied shortness of breath. Reported feeling fluid overloaded and was worried about traveling home to [place] in a few days. Discussed with her taking lasix as it was prescribed. As her spironolactone was stopped, did advise patient restart this at 25 mg once a day for four days only. She was instructed to call office in a week to review symptoms. On 10/15, patient presented back to [facility] for gastrointestinal bleed. She had a colonoscopy on 10/17/24 which showed findings notable for large clot and ulceration noted at 45 cm, concerning for ischemia, biopsies were obtained. Did receive one unit PRBC. Nephrology was consulted. She was given 5 mg metolazone BID for 2 days and was started on bumex gtt. This was adjusted the following day to oral bumex 2 mg BID and 2.5 mg metolazone every other day. Nephrology suggested patient be discharged on bumex, jardiance, spironolactone and entresto. The patient wished to leave [place] so she could return to [place]. Cardiology and Pulmonary agreed with discharge. Today, the patient reports feeling okay. Since she was hospitalized in [place], she has not felt that well. Feels very tired. Denies shortness of breath. Was seen by her PCP on Wednesday who suggested patient be admitted due to significant worsening in kidney function however, the patient and declined admission as she just returned home the day before. States she was started on bumex drip and then received oral bumex while in [place] and noted a worsening in kidney function. Overall, she spent 23 days in the hospital. States feeling better yesterday than today. She just arrived back home on Wednesday. She feels her legs do not want to function as well as they did yesterday. Reports a 2-3 lb weight gain from yesterday. is present during visit and states she had a few pieces of roasted chicken, asparagus and salad. While in [place], she was very conscious about her diet. She weighed every day. 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 Wearing lidocaine patch over site to right side of neck as she mentions having a temporary dialysis port in place during first hospitalization. This area was bothersome to her however, she does mention the discomfort is improving. Does not have a managed care coordinator at this time. Can lay flat with one pillow. Reports shortness of breath. Denies chest pain, fever, chills, dizziness, lightheadedness. Mild leg swelling. IMPRESSION: NYHA Functional Class: II Stage: C heart failure Berta Sanches is a 79 year-old female who presents to the Heart Failure Clinic for follow up. Appears minimally hypervolemic on examination. Will administer IV lasix in office. Based on most recent GFR and GFR's noted during her last hospital stay, no room to add ARNi and SGLT2i at this time. Reviewed most recent lab work with patient. Based on sodium level and kidney function suggested ER however, patient and do not wish to proceed. Will have patient get labs after appt. Will call with results later today. If kidney function or sodium worse than 10/31 labs, they are instructed to go to ER. Discussed risk and benefits of admission however, as patient was admitted to the hospital for 23 days she declines admission at this time. Continue to monitor fluid and sodium intake.Consult to nephrology placed. Will continue with lasix 40 mg orally for now. Will reassess with visit next week and determine if switch to torsemide should be made. Reviewed red flags on when to go to ER. Reviewed plan of care with patient and . All questions answered at this time. PLAN AND RECOMMENDATIONS: 1. Chronic diastolic congestive heart failure (HCC) - ICD9: 428.32, 428.0, ICD10: I50.32 (primary diagnosis) - daily weights, call office if weight increases 3-4 lbs in a 1-4 day period -2 gm low sodium diet -activity as tolerated, rest breaks as needed -GDMT: lasix, metoprolol, losartan -labs today -20 mg IV lasix in office -will review labs once resulted -declining ER visit today see HPI -10/2024 echo EF 55-60% -follow up in HF Clinic in 11/21 sooner if needed 2. Primary hypertension - ICD9: 401.9, ICD10: I10 -BP suboptimal during visit 128/44 mmHg -encourage DASH/low sodium diet -encourage exercise with rest breaks as needed -goal BP <130/80 mmHg -continue home BP monitoring 3-4 hours after morning meds 3. SSS (sick sinus syndrome) (HCC) - ICD9: 427.81, ICD10: I49.5 -s/p PPM 4. Longstanding persistent atrial fibrillation (HCC) - ICD9: 427.31, ICD10: I48.11 -CHADSVASc 5 (age, gender, HF, HTN)- s/p watchman -continue metoprolol for rate control -HR 60 bpm during office visit Follow up appointment with Dr. 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 Lua PACEMAKER 10/2019 PART. HYSTERECTOMY W/WO RMVL OVARIES/TUBES 1973 h/o cervical cancer ovaries remain PAST SURGICAL HISTORY OF 1996 Aortic valve repair, Dr. Apodaca PAST SURGICAL HISTORY OF 2001 [address] Beltrán, [facility] PAST SURGICAL HISTORY OF 2015 clipping and coil for brain aneurysm Social History Tobacco Use Smoking status: Former Current packs/day: 0.00 Average packs/day: 0.3 packs/day for 2.0 years (0.5 ttl pk-yrs) Types: Cigarettes Start date: 1965 Quit date: 1967 Years since quittin.3 Smokeless tobacco: Never Vaping Use Vaping status: Never Used Substance Use Topics Alcohol use: Not Currently Alcohol/week: 1.0 standard drink of alcohol Types: 1 Glasses of Wine (5oz) per week Comment: red wine 2-3 times a week- occasional Drug use: No Family History Problem Relation Age of Onset other (Heart Problems) Mother other (myocardial infarction) Mother other (cardiovascular disease) Mother other (Heart Attack) Father other (cardiovascular disease) Father Diabetes Maternal Grandmother ALLERGIES Allergen Reactions Protamine Anaphylaxis Had acute drop in blood pressure and end tidal Co2 shortly after administration during watchman procedure on 01/12/22, treated with 60 mcg epinephrine and 10 mg dexamethasone with good response. Propofol Other: See Comments Hypotension CURRENT MEDICATIONS: Current Outpatient Medications Medication Sig Dispense Refill clopidogrel (PLAVIX) 75 mg tablet Take 75 mg by mouth once daily. pantoprazole DR (PROTONIX) 40 mg tablet Take 40 mg by mouth once daily. atorvastatin (LIPITOR) 40 mg tablet Take 40 mg by mouth once daily. aspirin 81 mg chewable tablet Take 1 tablet by mouth once daily. 30 tablet 11 metoprolol succinate ER (TOPROL XL) 50 mg 24 hr tablet Take 1 tablet by mouth two times a day. 180 tablet 3 losartan (COZAAR) 50 mg tablet Take 1 tablet by mouth once daily. 90 tablet 3 potassium chloride (K-TAB) 10 mEq tablet Take 1 tablet by mouth once daily. 30 tablet 3 furosemide (LASIX) 20 mg tablet Take 2 tablets by mouth once daily. TAKE AN EXTRA 20 MG in the afternoon if you note greater than 3 lbs weight gain in 24 hours 270 tablet 3 omeprazole (PRILOSEC) 40 mg capsule Take 1 capsule by mouth once daily. 90 capsule 1 Blood Pressure Monitor (BLOOD PRESSURE KIT) 1 Each once daily. 1 Each 0 acetaminophen (TYLENOL) 500 mg tablet Take 1-2 tablets by mouth every 6 hours as needed. blood sugar diagnostic (BLOOD GLUCOSE TEST) test strip Test blood sugar(s) 2 times daily. Dx: Type 2 DM - Controlled E11.9 Insulin: No 50 Strip 11 UBIDECARENONE (COQ-10 ORAL) Take 1 capsule by mouth once daily. No current facility-administered medications for this visit. REVIEW OF SYSTEMS: GENERAL: Positive for:Weight gain HEENT: Positive for:Hearing Impairment NECK: Negative for: Swelling, Pain, Stiffness RESPIRATORY: Positive for: Shortness of breath GASTROINTESTINAL: Negative for: Trouble swallowing, Heartburn, Change in bowel habits, Blood in stool, Dark black stools MUSCULOSKELETAL: Positive for: Muscle or joint pain NEUROLOGIC/PSYCHIATRIC: Negative for: Weakness, Paralysis, Numbness, Tingling, Tremor, Nervousness or anxiety, Depressed mood, Memory loss SKIN: Negative for: Rash, Itching HEMATOLOGICAL/LYMPHATIC: Positive for: Easy bruising and Easy bleeding ENDOCRINE: Negative for: Heat or Cold Intolerance, Excessive Sweating, Frequent Urination, Frequent Thirst PHYSICAL EXAMINATION: BP (!) 121/44 Pulse 66 Wt 66.7 kg (147 lb) SpO2 100% BMI 26.89 kg/m? General: Normal exam, no distress, accompanied by family Skin: No clubbing, no cyanosis. Eyes: Extra ocular movements intact Neck: Neck veins are not distended Lungs: Chest clear to auscultation Heart: Rhythm: regular rate and rhythm, Rate: normal, no murmur Abdomen: Normal Extremities: edema: 1+ BLLE Peripheral Pulses: Normal CARDIOVASCULAR MEDICINE TESTING: Latest Reference Range AND Units 10/31/24 11:52 Sodium 136 - 144 mmol/L 123 (L) Potassium 3.7 - 5.1 mmol/L 3.8 Chloride 98 - 107 mmol/L 83 (L) CO2 22 - 30 mmol/L 29 BUN 7 - 21 mg/dL 53 (H) Creatinine 0.58 - 0.96 mg/dL 2.50 (H) Glucose 74 - 99 mg/dL 138 (H) Protein, Total 6.3 - 8.0 g/dL 7.0 Calcium 8.5 - 10.2 mg/dL 9.3 Albumin 3.9 - 4.9 g/dL 4.0 Bilirubin, Total 0.2 - 1.3 mg/dL 1.0 Alkaline Phosphatase 34 - 123 U/L 81 ALT 7 - 38 U/L 10 AST 13 - 35 U/L 19 Anion Gap 8 - 15 mmol/L 11 eGFR >=60 mL/min/1.73m? 19 (L) (L): Data is abnormally low (H): Data is abnormally high OUTSIDE ECHO TAMPA 10/04/2024: Study Conclusions 1. Left ventricle: The cavity size is normal. Wall thickness was increased in a pattern of mild LVH. Left ventricular geometry shows evidence of eccentric hypertrophy, with increased ventricular mass and normal relative wall thickness. Systolic function was normal. The estimated ejection fraction was in the range of 55% to 60%, by visual assessment. Wall motion was normal; there were no regional wall motion abnormalities. 2. Aortic valve: There is a bioprosthetic valve. The valve leaflets are not well visualized. Transvalvular velocity is within the normal range. There is no stenosis. There is trivial paravalular regurgitation. There is no central regurgitation. The mean systolic gradient is 9.00mm Hg. The valve area by the velocity-time integral method is 1.5cm2. The valve area by the peak velocity method is 1.5cm2. 3. Mitral valve: The leaflets are mildly thickened and calcified. Mobility was normal. The valve area (LVOT continuity) is 2.1cm2. 4. Left atrium: The atrium is severely dilated. 5. Right ventricle: The cavity size is mildly dilated. Pacer wire or catheter noted in right ventricle. Systolic function is mildly reduced. Systolic pressure was increased. 6. Right atrium: The atrium is dilated. 7. Pulmonic valve: There is mild regurgitation. 8. Pulmonary arteries: Systolic pressure is moderately increased. The peak pressure during systole by Doppler is 54mm Hg. 9. Inferior vena cava: The vessel was dilated. The respirophasic diameter changes were blunted (< 50%), consistent with elevated central venous pressure. I have personally reviewed the images/study. I have reviewed and agree with or edited the Resident/Fellow impression and interpretation as noted. Federico Hammonds [id number] I have personally reviewed the Laboratory Testing and Echocardiogram. COUNSELING: We discussed the following non-pharmacological measures during this visit: Smoking and alcohol abstinence/cessation, if applicable Dietary and medication compliance Monitoring daily weights and blood pressures Exercise regimen When to call our office Heart Failure Education Booklet: Previously given. Discussed red flags and when to call MD/ATTENDANT ARCADE or go to ED. Medications reconciled at end of visit: yes I spent 60 minutes in this visit, with more than 50% of the time devoted to patient counseling. SIGNATURE: Albin Gu APRN.CNP PATIENT NAME: Berta Sanches DATE: November 03, 2024 TIME: 0855 Gwen Valentine RN 11/03/2024 10:53 AM Signed Pt seen in outpatient CHF clinic. Lasix 20 mg IV ordered. IV started to right AC with 22g angiocath. Good blood return, no redness, no swelling. Lasix given and flushed per protocol. IV D/Cd, pressure held x 5 minutes. Dry dressing and coband applied. No bleeding, no swelling noted. Pt tolerated well. Allergies As of Date: 11/03/2024 Noted Allergy Reaction PROTAMINE 01/12/2022 10 - Anaphylaxis Comments: Had acute drop in blood pressure and end tidal Co2 shortly after administration during watchman procedure on 01/12/22, treated with 60 mcg epinephrine and 10 mg dexamethasone with good response. PROPOFOL 04/07/2023 14 - Other: See Comments Comments: Hypotension Date Reviewed: 11/03/2024 Reviewed by: Gwen Valentine RN - Fully Assessed Reason for Visit: Breathing Problem [17] Leg Edema [769] Primary Visit Diagnosis:Chronic diastolic congestive heart failure (HCC) [I50.32] Other Visit Diagnoses:Primary hypertension [I10] SSS (sick sinus syndrome) (HCC) [I49.5] Longstanding persistent atrial fibrillation (HCC) [I48.11] Stage 3b chronic kidney disease (HCC) [N18.32] Order(s):BASIC METABOLIC PANEL [SQBMP] Order #: [id number] FUTURE BASIC METABOLIC PANEL [SQBMP] Order #: [id number] FUTURE CONSULT TO NEPHROLOGY [9018] Order #: [id number]: 1 FUTURE [] furosemide 20 mg injection (LASIX)Disp: Rfl: Prescriptions as of 11/03/2024 - clopidogrel (PLAVIX) 75 mg tablet Take 75 mg by mouth once daily. - pantoprazole DR (PROTONIX) 40 mg tablet Take 40 mg by mouth once daily. - atorvastatin (LIPITOR) 40 mg tablet Take 40 mg by mouth once daily. - aspirin 81 mg chewable tablet Take 1 tablet by mouth once daily. - metoprolol succinate ER (TOPROL XL) 50 mg 24 hr tablet Take 1 tablet by mouth two times a day. - losartan (COZAAR) 50 mg tablet Take 1 tablet by mouth once daily. - potassium chloride (K-TAB) 10 mEq tablet Take 1 tablet by mouth once daily. - furosemide (LASIX) 20 mg tablet Take 2 tablets by mouth once daily. TAKE AN EXTRA 20 MG in the afternoon if you note greater than 3 lbs weight gain in 24 hours - omeprazole (PRILOSEC) 40 mg capsule Take 1 capsule by mouth once daily. - Blood Pressure Monitor (BLOOD PRESSURE KIT) 1 Each once daily. - acetaminophen (TYLENOL) 500 mg tablet Take 1-2 tablets by mouth every 6 hours as needed. - blood sugar diagnostic (BLOOD GLUCOSE TEST) test strip Test blood sugar(s) 2 times daily. Dx: Type 2 DM - Controlled E11.9 Insulin: No - UBIDECARENONE (COQ-10 ORAL) Take 1 capsule by mouth once daily. 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]10/10/2013 Paroxysmal atrial fibrillation (HCC) [I48.0] 10/10/2013 04/11/2023 HTN (hypertension) [I10] 10/10/2013 Hyperlipidemia with target LDL less than 70 [E7*11/20/2013 Type 2 diabetes mellitus without complication, *11/20/2013 09/12/2021 GERD (gastroesophageal reflux disease) [K21.9] 11/20/2013 Chronic anticoagulation [Z79.01] 11/20/2013 Fatigue [R53.83] 11/20/2013 SOB (shortness of breath) [R06.02] 11/20/2013 11/12/2023 H/O rheumatic heart disease [Z86.79] 11/20/2013 SUMMARY [V999.95] 12/09/2013 12/22/2018 Carotid artery disease (HCC) [I77.9] 12/09/2013 09/12/2021 Routine health maintenance [Z00.00] 01/08/2014 09/12/2021 Basal cell carcinoma [C44.91] 01/08/2014 Left shoulder pain [M25.512] 02/26/2014 Abdominal pain [R10.9] 02/26/2014 03/21/2022 Intracranial aneurysm [I67.1] 08/30/2015 10/05/2022 prison current use of antiarrhythmic medical*10/20/2016 09/12/2021 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] 11/19/2016 12/22/2018 Bilateral carotid artery stenosis [I65.23] 11/26/2016 Osteopenia of left lower leg [M85.862] 11/26/2016 Mastoiditis of right side [H70.91] 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] Personal history of colonic polyps [Z86.0100] 01/06/2017 Aortic stenosis [I35.0] 01/06/2017 12/22/2018 History of ischemic colitis [Z87.19] 01/06/2017 Adenomatous polyp of descending colon [D12.4] 01/06/2017 Skin cancer [C44.90] 01/06/2017 PAD (peripheral artery disease) (HCC) [I73.9] 01/06/2017 Pedro aneurysm of anterior communicating artery* Stage 3 chronic renal impairment associated wit*03/11/2017 Other chest pain [R07.89] 03/27/2019 09/19/2020 History of pulmonary embolism [Z86.711] 03/27/2019 Ascending aorta dilatation (HCC) [I77.810] 03/27/2019 Chronic bilateral pleural effusions [J90] 03/27/2019 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] 06/15/2019 Right renal mass [N28.89] 06/16/2019 Diverticulitis of large intestine with perforat*06/16/2019 09/12/2021 Diverticulitis large intestine w/o perforation *07/18/2019 Renal cell carcinoma, right (HCC) [C64.1] 10/17/2019 Iron deficiency anemia [D50.9] 10/24/2019 Anemia due to GI blood loss [D50.0] 10/24/2019 03/22/2022 Renal cell carcinoma (HCC) [C64.9] 10/24/2019 09/12/2021 Hypomagnesemia [E83.42] 10/26/2019 Gastrointestinal hemorrhage associated with acu*02/15/2020 Esophageal stenosis [K22.2] 10/28/2019 Dilated cardiomyopathy (HCC) [I42.0] 03/22/2020 Acute on chronic combined systolic and diastoli*09/19/2020 11/12/2023 SSS (sick sinus syndrome) (HCC) [I49.5] 10/21/2020 Encounter for support and coordination of trans*02/15/2021 09/12/2021 Duodenal ulcer [K26.9] 05/20/2021 Type 2 diabetes mellitus with diabetic peripher*09/12/2021 Atrial fibrillation (HCC) [I48.91] 01/12/2022 04/11/2023 Melena [K92.1] 02/22/2022 02/24/2022 Acute kidney injury (HCC) [N17.9] 02/22/2022 02/24/2022 Acute on chronic systolic heart failure (HCC) [*03/19/2022 03/22/2022 Longstanding persistent atrial fibrillation (HC*03/20/2022 S/P placement of cardiac pacemaker [Z95.0] 03/20/2022 CKD (chronic kidney disease) [N18.9] 03/21/2022 Platelet inhibition due to Plavix [Z79.02] 03/21/2022 Diverticulosis [K57.90] 03/21/2022 Lung nodule, solitary [R91.1] 03/22/2022 Red blood cell antibody positive [R76.8] 03/23/2022 Iron 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 *04/07/2022 Iron malabsorption [K90.9] 04/07/2022 Chronic renal failure, stage 3b (HCC) [N18.32] 04/15/2022 Spondylolisthesis at L4-L5 level [M43.16] 07/07/2022 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 Chronic diastolic (congestive) heart failure (H*11/09/2023 Other instructions from your clinician: Continue current medications as prescribed. Consult to Nephrology placed. Labs to be drawn today. Will call with lab results once they are resulted. 2. Weigh yourself daily. Call me if your weight increases by 3-4 pounds in a 1-4 day period of time. 3. Continue low salt (2000 mg per day) diet. 4. Be as active as you are able. If you get tired, just stop and rest for a while. 5. Come back and see me on WednesdayNovember 21 at 1000. If you have any question or concern, you can call me at [phone]. Prescriptions ordered this encounter Disp Refills Start End FUROSEMIDE 10 MG/ML INJ 11/03/2024 11/03/2024 Route: INTRAVENOUS Encounter Status:Closed by ALBIN GU on 11/03/24 PROGRESS Observed: 11/03/2024 9:00 AM Status: COMPLETED Source: [facility] HNO ID: [id number] Author: ALBIN GU APRN.JASPREET Service: ? Author Type: Nurse Practitioner Type: Progress Notes Filed: 11/03/2024 10:28 Note Text: [facility] Heart Failure Clinic OUTPATIENT VISIT DATE November 03, 2024 OUTPATIENT VISIT TYPE ESTABLISHED PRIMARY CARE PHYSICIAN: Deysi Nicholson APRN.MINCEMEAT MAKER CHIEF COMPLAINT: Patient presents with: Breathing Problem Leg Edema HISTORY OF PRESENT ILLNESS: Berta Sanches is a 79 year old female who presents today for a follow-up visit in the Heart Failure Clinic. The patient was last seen in office 04/07. The following changes were made at that time: none. Past medical history is significant for hypertension, hyperlipidemia, valvular heart disease s/p aortic valve replacement, history of brain aneurysm s/p coiling, SSS s/p pacemaker 10/2020, A-fib, s/p Watchman 2021, history of rectal bleeding, diabetes mellitus. Patient has had 2 hospitalizations and/or emergency room encounters in the last 12 months. Most recent hospitalization was from 10/02 to 10/11 for abdominal pain and hematemesis. She is s/p left groin US guided femoral access mesenteric angiogram, angioplasty of SMA, 8 shockwave SMA, stenting of SMA viabahn 7 x 59 mm, DCB SMA Mynx closure on 10/02/2024. She was found to have MONIQUE on 10/03. Nephrology consulted and started CRRT. This was however, stopped on 10/05. Cardiology was consulted for atrial fibrillation which she developed post operatively. She was placed on amio gtt in which she then converted. Due to fluid overload, she was diuresed with IV lasix BID. At time of discharge, she was started on aspirin, atorvastatin, clopidogrel and pantoprazole. She was taken off spironolactone, losartan, simvastatin. Patient called HF Clinic on 10/12 to discuss recent hospitalization. At that time, the patient stated her admission weight was 136 lbs and when she arrived home from the hospital her weight was 157 lbs. She denied shortness of breath. Reported feeling fluid overloaded and was worried about traveling home to [place] in a few days. Discussed with her taking lasix as it was prescribed. As her spironolactone was stopped, did advise patient restart this at 25 mg once a day for four days only. She was instructed to call office in a week to review symptoms. On 10/15, patient presented back to [facility] for gastrointestinal bleed. She had a colonoscopy on 10/17/24 which showed findings notable for large clot and ulceration noted at 45 cm, concerning for ischemia, biopsies were obtained. Did receive one unit PRBC. Nephrology was consulted. She was given 5 mg metolazone BID for 2 days and was started on bumex gtt. This was adjusted the following day to oral bumex 2 mg BID and 2.5 mg metolazone every other day. Nephrology suggested patient be discharged on bumex, jardiance, spironolactone and entresto. The patient wished to leave [place] so she could return to [place]. Cardiology and Pulmonary agreed with discharge. Today, the patient reports feeling okay. Since she was hospitalized in [place], she has not felt that well. Feels very tired. Denies shortness of breath. Was seen by her PCP on Wednesday who suggested patient be admitted due to significant worsening in kidney function however, the patient and declined admission as she just returned home the day before. States she was started on bumex drip and then received oral bumex while in [place] and noted a worsening in kidney function. Overall, she spent 23 days in the hospital. States feeling better yesterday than today. She just arrived back home on Wednesday. She feels her legs do not want to function as well as they did yesterday. Reports a 2-3 lb weight gain from yesterday. is present during visit and states she had a few pieces of roasted chicken, asparagus and salad. While in [place], she was very conscious about her diet. She weighed every day. 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 Wearing lidocaine patch over site to right side of neck as she mentions having a temporary dialysis port in place during first hospitalization. This area was bothersome to her however, she does mention the discomfort is improving. Does not have a managed care coordinator at this time. Can lay flat with one pillow. Reports shortness of breath. Denies chest pain, fever, chills, dizziness, lightheadedness. Mild leg swelling. IMPRESSION: NYHA Functional Class: II Stage: C heart failure Berta Sanches is a 79 year-old female who presents to the [facility] for follow up. Appears minimally hypervolemic on examination. Will administer IV lasix in office. Based on most recent GFR and GFR's noted during her last hospital stay, no room to add ARNi and SGLT2i at this time. Reviewed most recent lab work with patient. Based on sodium level and kidney function suggested ER however, patient and do not wish to proceed. Will have patient get labs after appt. Will call with results later today. If kidney function or sodium worse than 10/31 labs, they are instructed to go to ER. Discussed risk and benefits of admission however, as patient was admitted to the hospital for 23 days she declines admission at this time. Continue to monitor fluid and sodium intake.Consult to nephrology placed. Will continue with lasix 40 mg orally for now. Will reassess with visit next week and determine if switch to torsemide should be made. Reviewed red flags on when to go to ER. Reviewed plan of care with patient and . All questions answered at this time. PLAN AND RECOMMENDATIONS: 1. Chronic diastolic congestive heart failure (HCC) - ICD9: 428.32, 428.0, ICD10: I50.32 (primary diagnosis) - daily weights, call office if weight increases 3-4 lbs in a 1-4 day period -2 gm low sodium diet -activity as tolerated, rest breaks as needed -GDMT: lasix, metoprolol, losartan -labs today -20 mg IV lasix in office -will review labs once resulted -declining ER visit today see HPI -10/2024 echo EF 55-60% -follow up in HF Clinic in 11/21 sooner if needed 2. Primary hypertension - ICD9: 401.9, ICD10: I10 -BP suboptimal during visit 128/44 mmHg -encourage DASH/low sodium diet -encourage exercise with rest breaks as needed -goal BP <130/80 mmHg -continue home BP monitoring 3-4 hours after morning meds 3. SSS (sick sinus syndrome) ([facility]) - ICD9: 427.81, ICD10: I49.5 -s/p PPM 4. Longstanding persistent atrial fibrillation (HCC) - ICD9: 427.31, ICD10: I48.11 -CHADSVASc 5 (age, gender, HF, HTN)- s/p watchman -continue metoprolol for rate control -HR 60 bpm during office visit Follow up appointment with Dr. 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 Aaron [facility] Bilateral carotid artery stenosis 11/26/2016 05/27/16 moderate 50-69% stenosis right and left Bilateral pneumonia 07/20/2015 Cancer of cervix (HCC) Cervical cancer (HCC) 1973 Chest pain 06/01/2015 negative work up with nuclar stress CHF (congestive heart failure) (HCC) Cholesteatoma of right ear surgical removal Chronic mastoiditis of left side Chronic renal failure, stage 3b (HCC) 04/15/2022 Diabetes (HCC) Diabetes (HCC) GERD (gastroesophageal reflux disease) H/O: GI bleed High blood pressure Hypercholesterolemia Mastoiditis of right side s/p mastoidectomy, complete opacitificationright tympanic cavity and mastoid cells on CT 06/01/16 Mitral valve regurgitation Pacemaker 10/21/[address] TRELL VERNON [id number] pulse generator, his bundle lead, right atrial lead Peripheral arterial disease Rheumatic fever Steatosis, liver 03/26/2014 fatty liver on US. 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 Lua PACEMAKER 10/2019 PART. HYSTERECTOMY W/WO RMVL OVARIES/TUBES 1974 h/o cervical cancer ovaries remain PAST SURGICAL HISTORY OF 1996 Aortic valve repair, Dr. Apodaca PAST SURGICAL HISTORY OF 2001 [address] Beltrán, [facility] PAST SURGICAL HISTORY OF 2015 clipping and coil for brain aneurysm Social History Tobacco Use Smoking status: Former Current packs/day: 0.00 Average packs/day: 0.3 packs/day for 2.0 years (0.5 ttl pk-yrs) Types: Cigarettes Start date: 1965 Quit date: 1967 Years since quittin.3 Smokeless tobacco: Never Vaping Use Vaping status: Never Used Substance Use Topics Alcohol use: Not Currently Alcohol/week: 1.0 standard drink of alcohol Types: 1 Glasses of Wine (5oz) per week Comment: red wine 2-3 times a week- occasional Drug use: No Family History Problem Relation Age of Onset other (Heart Problems) Mother other (myocardial infarction) Mother other (cardiovascular disease) Mother other (Heart Attack) Father other (cardiovascular disease) Father Diabetes Maternal Grandmother ALLERGIES Allergen Reactions Protamine Anaphylaxis Had acute drop in blood pressure and end tidal Co2 shortly after administration during watchman procedure on 01/12/22, treated with 60 mcg epinephrine and 10 mg dexamethasone with good response. Propofol Other: See Comments Hypotension CURRENT MEDICATIONS: Current Outpatient Medications Medication Sig Dispense Refill clopidogrel (PLAVIX) 75 mg tablet Take 75 mg by mouth once daily. pantoprazole DR (PROTONIX) 40 mg tablet Take 40 mg by mouth once daily. atorvastatin (LIPITOR) 40 mg tablet Take 40 mg by mouth once daily. aspirin 81 mg chewable tablet Take 1 tablet by mouth once daily. 30 tablet 11 metoprolol succinate ER (TOPROL XL) 50 mg 24 hr tablet Take 1 tablet by mouth two times a day. 180 tablet 3 losartan (COZAAR) 50 mg tablet Take 1 tablet by mouth once daily. 90 tablet 3 potassium chloride (K-TAB) 10 mEq tablet Take 1 tablet by mouth once daily. 30 tablet 3 furosemide (LASIX) 20 mg tablet Take 2 tablets by mouth once daily. TAKE AN EXTRA 20 MG in the afternoon if you note greater than 3 lbs weight gain in 24 hours 270 tablet 3 omeprazole (PRILOSEC) 40 mg capsule Take 1 capsule by mouth once daily. 90 capsule 1 Blood Pressure Monitor (BLOOD PRESSURE KIT) 1 Each once daily. 1 Each 0 acetaminophen (TYLENOL) 500 mg tablet Take 1-2 tablets by mouth every 6 hours as needed. blood sugar diagnostic (BLOOD GLUCOSE TEST) test strip Test blood sugar(s) 2 times daily. Dx: Type 2 DM - Controlled E11.9 Insulin: No 50 Strip 11 UBIDECARENONE (COQ-10 ORAL) Take 1 capsule by mouth once daily. No current facility-administered medications for this visit. REVIEW OF SYSTEMS: GENERAL: Positive for:Weight gain HEENT: Positive for:Hearing Impairment NECK: Negative for: Swelling, Pain, Stiffness RESPIRATORY: Positive for: Shortness of breath GASTROINTESTINAL: Negative for: Trouble swallowing, Heartburn, Change in bowel habits, Blood in stool, Dark black stools MUSCULOSKELETAL: Positive for: Muscle or joint pain NEUROLOGIC/PSYCHIATRIC: Negative for: Weakness, Paralysis, Numbness, Tingling, Tremor, Nervousness or anxiety, Depressed mood, Memory loss SKIN: Negative for: Rash, Itching HEMATOLOGICAL/LYMPHATIC: Positive for: Easy bruising and Easy bleeding ENDOCRINE: Negative for: Heat or Cold Intolerance, Excessive Sweating, Frequent Urination, Frequent Thirst PHYSICAL EXAMINATION: BP (!) 121/44 Pulse 66 Wt 66.7 kg (147 lb) SpO2 100% BMI 26.89 kg/m? General: Normal exam, no distress, accompanied by family Skin: No clubbing, no cyanosis. Eyes: Extra ocular movements intact Neck: Neck veins are not distended Lungs: Chest clear to auscultation Heart: Rhythm: regular rate and rhythm, Rate: normal, no murmur Abdomen: Normal Extremities: edema: 1+ BLLE Peripheral Pulses: Normal CARDIOVASCULAR MEDICINE TESTING: Latest Reference Range AND Units 10/31/24 11:52 Sodium 136 - 144 mmol/L 123 (L) Potassium 3.7 - 5.1 mmol/L 3.8 Chloride 98 - 107 mmol/L 83 (L) CO2 22 - 30 mmol/L 29 BUN 7 - 21 mg/dL 53 (H) Creatinine 0.58 - 0.96 mg/dL 2.50 (H) Glucose 74 - 99 mg/dL 138 (H) Protein, Total 6.3 - 8.0 g/dL 7.0 Calcium 8.5 - 10.2 mg/dL 9.3 Albumin 3.9 - 4.9 g/dL 4.0 Bilirubin, Total 0.2 - 1.3 mg/dL 1.0 Alkaline Phosphatase 34 - 123 U/L 81 ALT 7 - 38 U/L 10 AST 13 - 35 U/L 19 Anion Gap 8 - 15 mmol/L 11 eGFR >=60 mL/min/1.73m? 19 (L) (L): Data is abnormally low (H): Data is abnormally high OUTSIDE ECHO TAMPA 10/04/2024: Study Conclusions 1. Left ventricle: The cavity size is normal. Wall thickness was increased in a pattern of mild LVH. Left ventricular geometry shows evidence of eccentric hypertrophy, with increased ventricular mass and normal relative wall thickness. Systolic function was normal. The estimated ejection fraction was in the range of 55% to 60%, by visual assessment. Wall motion was normal; there were no regional wall motion abnormalities. 2. Aortic valve: There is a bioprosthetic valve. The valve leaflets are not well visualized. Transvalvular velocity is within the normal range. There is no stenosis. There is trivial paravalular regurgitation. There is no central regurgitation. The mean systolic gradient is 9.00mm Hg. The valve area by the velocity-time integral method is 1.5cm2. The valve area by the peak velocity method is 1.5cm2. 3. Mitral valve: The leaflets are mildly thickened and calcified. Mobility was normal. The valve area (LVOT continuity) is 2.1cm2. 4. Left atrium: The atrium is severely dilated. 5. Right ventricle: The cavity size is mildly dilated. Pacer wire or catheter noted in right ventricle. Systolic function is mildly reduced. Systolic pressure was increased. 6. Right atrium: The atrium is dilated. 7. Pulmonic valve: There is mild regurgitation. 8. Pulmonary arteries: Systolic pressure is moderately increased. The peak pressure during systole by Doppler is 54mm Hg. 9. Inferior vena cava: The vessel was dilated. The respirophasic diameter changes were blunted (< 50%), consistent with elevated central venous pressure. I have personally reviewed the images/study. I have reviewed and agree with or edited the Resident/Fellow impression and interpretation as noted. Federico Hammonds [id number] I have personally reviewed the Laboratory Testing and Echocardiogram. COUNSELING: We discussed the following non-pharmacological measures during this visit: Smoking and alcohol abstinence/cessation, if applicable Dietary and medication compliance Monitoring daily weights and blood pressures Exercise regimen When to call our office Heart Failure Education Booklet: Previously given. Discussed red flags and when to call MD/ATTENDANT ARCADE or go to ED. Medications reconciled at end of visit: yes I spent 60 minutes in this visit, with more than 50% of the time devoted to patient counseling. SIGNATURE: Albin Gu APRN.CNP PATIENT NAME: Berta Sanches DATE: November 03, 2024 TIME: 854 LIYA Observed: 11/03/2024 12:00 AM Status: COMPLETED Source: [facility] Telephone ([facility]) VERÓNICABERTA J ([id number]) 1945 F [facility] Date Time Provider Department 11/03/24 ALBIN GU [facility] During your visit today, we recorded the following information about you: Albin Gu APRN.CNP 11/03/2024 12:49 PM Signed Called patient to review labs with patient. Creatinine improved slightly. BUN and sodium. Take additional torsemide 6 hours from morning dose on Wednesday and Wednesday. Take additional potassium tablet for 3 days. Labs on Wednesday prior seeing cardiology. Discussed again going to ER for evaluation. Patient does not wish to do this. Patient is asymptomatic with no complaints of shortness of breath. Vitals are stable. Reviewed red flags on when to go to ER over the weekend if symptoms worsen. Patient and agree with plan of care. Albin Gu APRN.MINCEMEAT MAKER Allergies As of Date: 11/03/2024 Noted Allergy Reaction PROTAMINE 01/12/2022 10 - Anaphylaxis Comments: Had acute drop in blood pressure and end tidal Co2 shortly after administration during watchman procedure on 01/12/22, treated with 60 mcg epinephrine and 10 mg dexamethasone with good response. PROPOFOL 04/07/2023 14 - Other: See Comments Comments: Hypotension Date Reviewed: 11/03/2024 Reviewed by: Gwen Valentine RN - Fully Assessed Reason for Visit: Results [95] Prescriptions as of 11/03/2024 - clopidogrel (PLAVIX) 75 mg tablet Take 75 mg by mouth once daily. - pantoprazole DR (PROTONIX) 40 mg tablet Take 40 mg by mouth once daily. - atorvastatin (LIPITOR) 40 mg tablet Take 40 mg by mouth once daily. - aspirin 81 mg chewable tablet Take 1 tablet by mouth once daily. - metoprolol succinate ER (TOPROL XL) 50 mg 24 hr tablet Take 1 tablet by mouth two times a day. - losartan (COZAAR) 50 mg tablet Take 1 tablet by mouth once daily. - potassium chloride (K-TAB) 10 mEq tablet Take 1 tablet by mouth once daily. - furosemide (LASIX) 20 mg tablet Take 2 tablets by mouth once daily. TAKE AN EXTRA 20 MG in the afternoon if you note greater than 3 lbs weight gain in 24 hours - omeprazole (PRILOSEC) 40 mg capsule Take 1 capsule by mouth once daily. - Blood Pressure Monitor (BLOOD PRESSURE KIT) 1 Each once daily. - acetaminophen (TYLENOL) 500 mg tablet Take 1-2 tablets by mouth every 6 hours as needed. - blood sugar diagnostic (BLOOD GLUCOSE TEST) test strip Test blood sugar(s) 2 times daily. Dx: Type 2 DM - Controlled E11.9 Insulin: No - UBIDECARENONE (COQ-10 ORAL) Take 1 capsule by mouth once daily. 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]10/10/2013 Paroxysmal atrial fibrillation (HCC) [I48.0] 10/10/2013 04/11/2023 HTN (hypertension) [I10] 10/10/2013 Hyperlipidemia with target LDL less than 70 [E7*11/20/2013 Type 2 diabetes mellitus without complication, *11/20/2013 09/12/2021 GERD (gastroesophageal reflux disease) [K21.9] 11/20/2013 Chronic anticoagulation [Z79.01] 11/20/2013 Fatigue [R53.83] 11/20/2013 SOB (shortness of breath) [R06.02] 11/20/2013 11/12/2023 H/O rheumatic heart disease [Z86.79] 11/20/2013 SUMMARY [V999.95] 12/09/2013 12/22/2018 Carotid artery disease (HCC) [I77.9] 12/09/2013 09/12/2021 Routine health maintenance [Z00.00] 01/08/2014 09/12/2021 Basal cell carcinoma [C44.91] 01/08/2014 Left shoulder pain [M25.512] 02/26/2014 Abdominal pain [R10.9] 02/26/2014 03/21/2022 Intracranial aneurysm [I67.1] 08/30/2015 10/05/2022 prison current use of antiarrhythmic medical*10/20/2016 09/12/2021 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] 11/19/2016 12/22/2018 Bilateral carotid artery stenosis [I65.23] 11/26/2016 Osteopenia of left lower leg [M85.862] 11/26/2016 Mastoiditis of right side [H70.91] 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] Personal history of colonic polyps [Z86.0100] 01/06/2017 Aortic stenosis [I35.0] 01/06/2017 12/22/2018 History of ischemic colitis [Z87.19] 01/06/2017 Adenomatous polyp of descending colon [D12.4] 01/06/2017 Skin cancer [C44.90] 01/06/2017 PAD (peripheral artery disease) (HCC) [I73.9] 01/06/2017 Pedro aneurysm of anterior communicating artery* Stage 3 chronic renal impairment associated wit*03/11/2017 Other chest pain [R07.89] 03/27/2019 09/19/2020 History of pulmonary embolism [Z86.711] 03/27/2019 Ascending aorta dilatation (HCC) [I77.810] 03/27/2019 Chronic bilateral pleural effusions [J90] 03/27/2019 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] 06/15/2019 Right renal mass [N28.89] 06/16/2019 Diverticulitis of large intestine with perforat*06/16/2019 09/12/2021 Diverticulitis large intestine w/o perforation *07/18/2019 Renal cell carcinoma, right (HCC) [C64.1] 10/17/2019 Iron deficiency anemia [D50.9] 10/24/2019 Anemia due to GI blood loss [D50.0] 10/24/2019 03/22/2022 Renal cell carcinoma (HCC) [C64.9] 10/24/2019 09/12/2021 Hypomagnesemia [E83.42] 10/26/2019 Gastrointestinal hemorrhage associated with acu*02/15/2020 Esophageal stenosis [K22.2] 10/28/2019 Dilated cardiomyopathy (HCC) [I42.0] 03/22/2020 Acute on chronic combined systolic and diastoli*09/19/2020 11/12/2023 SSS (sick sinus syndrome) (HCC) [I49.5] 10/21/2020 Encounter for support and coordination of trans*02/15/2021 09/12/2021 Duodenal ulcer [K26.9] 05/20/2021 Type 2 diabetes mellitus with diabetic peripher*09/12/2021 Atrial fibrillation (HCC) [I48.91] 01/12/2022 04/11/2023 Melena [K92.1] 02/22/2022 02/24/2022 Acute kidney injury (HCC) [N17.9] 02/22/2022 02/24/2022 Acute on chronic systolic heart failure (HCC) [*03/19/2022 03/22/2022 Longstanding persistent atrial fibrillation (HC*03/20/2022 S/P placement of cardiac pacemaker [Z95.0] 03/20/2022 CKD (chronic kidney disease) [N18.9] 03/21/2022 Platelet inhibition due to Plavix [Z79.02] 03/21/2022 Diverticulosis [K57.90] 03/21/2022 Lung nodule, solitary [R91.1] 03/22/2022 Red blood cell antibody positive [R76.8] 03/23/2022 Iron 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 *04/07/2022 Iron malabsorption [K90.9] 04/07/2022 Chronic renal failure, stage 3b (HCC) [N18.32] 04/15/2022 Spondylolisthesis at L4-L5 level [M43.16] 07/07/2022 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 Chronic diastolic (congestive) heart failure (H*11/09/2023 Encounter Status:Closed by ALBIN GU on 11/03/24 MAGNESIUM SERPL-MCNC Collected: 025 11:54 AM Status: F Source: [facility] Order Comment: Specimen Type : BLOOD SPECIMEN Ordering Facility: [facility] Address: [address] [place] [address] TYPE CODE TESTS RESULT OUT OF RANGE REFERENCE UNITS LAB 45541-9([facility]) Magnesium SerPl-mCnc 2.0 1.7-2.3 mg/dL Performed By: #### [id number] # ### [facility] CLIA [id number] [address] [place] [address] STATES OF [facility] CBC W AUTO DIFF BLD Collected: 10/31/2024 11:52 AM S tatus: F Source: [facility] Order Comment: Specimen Type : BLOOD SPECIMEN Ordering Facility: [facility] Address: [address] [place] [address] TYPE CODE TESTS RESULT OUT OF RANGE REFERENCE UNITS LAB 6690-2(LOINC) WBC # Bld Auto 6.26 3.70-11.00 k/uL LAB 789-8(LOINC) RBC # Bld Auto 2.75 Low 3.90-5.20 m/ uL LAB 718-7(LOINC) Hgb Bld-mCnc 8.7 Low 11.5-15.5 g/dL LAB 4544-3(LOINC) Hct VFr Bld Auto 26.3 Low 36.0-46.0 % LAB 787-2([facility]) MCV RBC Auto 95.6 80.0-100.0 fL LAB 785-6([facility]) MCH RBC Qn Auto 31.6 26.0-34.0 p g LAB 786-4([facility]) MCHC RBC Auto-mCnc 33.1 30.5-36.0 g/dL LAB 73152-5([facility]) RDW RBC-Rto 16.8 High 11.5-15.0 % LAB 777-3([facility]) Platelet # Bld Auto 202 150-400 k/uL LAB 46068-0([facility]) PMV Bld Auto 9.5 9.0-12.7 fL LAB 770-8([facility]) Neutrophils/leuk NFr Bld Auto 62.6 % LAB 751-8([facility]) Neutrophils # Bld Auto 3.92 1.45-7.50 k/uL LAB 736-9([facility]) Lymphocytes/leuk NFr Bld Auto 20.6 % LAB 731-0([facility]) Lymphocytes # Bld Auto 1.29 1.00-4.00 k/uL LAB 5905-5([facility]) Monocytes/leuk NFr Bld Auto 13.1 % LAB 742-7([facility]) Monocytes # Bld Auto 0.82 <0.87 k/uL LAB 713-8([facility]) Eosinophil/leuk NFr Bld Auto 2.1 % LAB 711-2([facility]) Eosinophil # Bld Auto 0.13 <0.46 k/uL LAB 706-2([facility]) Basophils/leuk NFr Bld Auto 1.0 % LAB 704-7([facility]) Basophils # Bld Auto 0.06 <0.11 k/uL LAB 72825-3([facility]) Imm Granulocytes/violet k NFr Bld Auto 0.6 % LAB 72310-9([facility]) Imm Granulocytes # Bld Auto 0.04 <0.10 k/uL LAB 78798-3([facility]) nRBC/100 WBC Bld-Rto 0.0 /100 WBC LAB 771-6([facility]) nRBC # Bld Auto <0.01 <0.01 k/u L LAB 80849-4([facility]) Differential method Bld Auto Performed By: #### 11565-4 # ### [facility] CLIA [id number] [address] [place] [address] [place] COMP METAB 2000 PNL SERPL Collected: 11:52 AM Status: F Source: [facility] Order Comment: Specimen Type : BLOOD SPECIMEN Ordering Facility: [facility] Address: [address] [place] [address] [place] [address] TYPE CODE TESTS RESULT OUT OF RANGE REFERENCE UNITS LAB 2885-2(LOINC) Prot SerPl-mCnc 7.0 6.3-8.0 g/dL LAB 1751-7(LOINC) Albumin SerPl-mCnc 4.0 3.9-4.9 g/dL LAB 42977-2(LOINC) Calcium SerPl-mCnc 9.3 8.5-10.2 mg/dL LAB 1975-2(LOINC) Bilirub SerPl-mCnc 1.0 0.2-1.3 mg/dL LAB 6768-6(LOINC) ALP SerPl-cCnc 81 34-123 U/L LAB 1920-8(LOINC) AST SerPl-cCnc 19 13-35 U/L LAB 1742-6(LOINC) ALT SerPl-cCnc 10 7-38 U/L LAB 2345-7(LOINC) Glucose SerPl-mCnc 138 High 74-99 mg/dL Result Comment: The [place] [employer] (ADA) provides guidance for cutoff values for fasting glucose and random glucose. The ADA defines fasting as no caloric intake for at least 8 hours. Fasting plasma glucose results between 100 to 125 mg/dL indicate increased risk for diabetes (prediabetes). Fasting plasma glucose results greater than or equal to 126 mg/dL meet the criteria for diagnosis of diabetes. In the absence of unequivocal hyperglycemia, results should be confirmed by repeat testing. In a patient with classic symptoms of hyperglycemia or hyperglycemic crisis, random plasma glucose results greater than or equal to 200 mg/dL meet the criteria for diagnosis of diabetes. Reference: Standards of Medical Care in Diabetes 2016, [place] [employer] Association. Diabetes Care. 2016.39(Suppl 1). LAB 3094-0(LOINC) BUN SerPl-mCnc 53 High 7-21 mg/ dL LAB 2160-0(LOINC) Creat SerPl-mCnc 2.50 High 0.58-0.96 mg/dL LAB 2951-2(LOINC) Sodium SerPl-sCnc 123 Low 136-144 mmol/L LAB 2823-3(LOINC) Potassium SerPl-sCnc 3.8 3.7-5.1 mmol/L LAB 2075-0(LOINC) Chloride SerPl-sCnc 83 Low 98-107 mmol/L LAB 202-9(LOINC) CO2 SerPl-sCnc 29 22-30 mmo l/L LAB 02387-7(LOINC) Anion Gap SerPl-sCnc 11 8-15 mmol/L LAB 79614-2(LOINC) Creatinine + eGFR Pnl SerPlBld 19 Low >=60 mL/min/1 .73m??? Result Comment: Estimated Gl omerular Filtration Rate (eGFR) is calculated using the 2020 CKD-EPI creatinine equation. This equation utilizes serum creatinine, sex, and age as parameters. The creatinine assay has traceable calibration to isotope dilution-mass spectrometry. Refer to KDIGO guidelines for clinical interpretation. In patients with unstable renal function, e.g. those with acute kidney injury, the eGFR may not accurately reflect actual GFR. Performed By: #### 57603-3 # ### [facility] [id number] [address] [place] [address] STATES OF [facility] PROGRESS Observed: 10/31/2024 11:11 AM Status: COMPLETED Source: [facility] HNO ID: [id number] Author: SHAYE DOMINGO APRN.[facility] Service: ? Author Type: Nurse Practitioner Type: Progress Notes Filed: 10/31/2024 12:52 Note Text: Chief Complaint Patient presents with: Hospital F/U HPI Berta Sanches is a 79 year old female who presents here today for Above Complaints.. Acute Mesenteric Ischemia: - Initially admitted to [facility] on 10/02/2024. - Underwent femoral ultrasound-guided angiogram with angioplasty and stenting of the SMA. - Required CRRT for MONIQUE post-op. - Developed AFib with RVR post-op. - Discharged after 23-day hospitalization. Acute on Chronic Heart Failure: - Given IV Lasix during initial admission. - Readmitted to [facility] on 10/15/2024 for acute on chronic decompensated heart failure and GI bleeding. - Echocardiogram on 10/03/2024 showed EF 55-60%, normal systolic function. - Discharged against medical advice; nephrology recommended against discharge due to worsening creatinine function. - Nephrology recommended slow introduction of Bumex, spironolactone, Jardiance, and Entresto as tolerated; no prescriptions given due to AMA discharge. - Follow-up appointments with cardiology on 12/11/2024 and 02/26/2025, and with Deysi Loza on 01/10/2025. GI Bleeding: - Colonoscopy on 10/17/2024 showed blood and clot through the left colon at approximately 45 cm from the entry site, severely ulcerated mucosa with stigmata of recent bleeding, and a very large and adherent clot occluding the lumen. - Received 1 unit of packed red blood cells. MONIQUE: - Required CRRT post-op. - Creatinine levels during hospitalization were 1.6 and 2.0; baseline creatinine was 1.12 in July. - Noted increased urination since returning home. Past medical history, appointments, medications, allergies reviewed. Previous Medical History PAST MEDICAL HISTORY Diagnosis Date Abnormal colonoscopy 11/26/2016 08/15/15 colonoscopy for anemia hgb 10.8 with bx ileocecal valve with ischemic bowel disease with focal mucosal ulceration Abnormal CT of the abdomen 07/13/2015 diffuse calcification aorta without dilitation, wall thcikening right colon suspicious for mass (ileocecal ulcer on colonoscopy), diverticulosis right colon Abnormal CXR chronic bilateral interstitial markings, moderate cardiomegaly Atrial fibrillation (HCC) Pedro aneurysm of anterior communicating artery Dr. 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 No gallstones Tachy-lionel syndrome (HCC) Previous Surgical History PAST SURGICAL HISTORY Procedure Laterality Date ABLATION 2018 for afib ANESTHESIA EXTERNAL MIDDLE AND INNER EAR W/BX NOS 2002, 2004,04/30/15 CARDIOVERSION 2018 EGD 02/28/2021 ESOPHAGOGASTRODUODENOSCOPY TRANSORAL DIAGNOSTIC 02/28/2021 LAP COLECTOMY, SIGMOID W/SUPERVISOR PLASTIC SHEETS 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 Lua PACEMAKER 10/2019 PART. HYSTERECTOMY W/WO RMVL OVARIES/TUBES 1973 h/o cervical cancer ovaries remain PAST SURGICAL HISTORY OF 1996 Aortic valve repair, Dr. Apodaca PAST SURGICAL HISTORY OF 2001 [address] Beltrán, [facility] PAST SURGICAL HISTORY OF 2015 clipping and coil for brain aneurysm Family History FAMILY HISTORY Problem Relation Age of Onset other (Heart Problems) Mother other (myocardial infarction) Mother other (cardiovascular disease) Mother other (Heart Attack) Father other (cardiovascular disease) Father Diabetes Maternal Grandmother Patient Allergies ALLERGIES Allergen Reactions Protamine Anaphylaxis Had acute drop in blood pressure and end tidal Co2 shortly after administration during watchman procedure on 01/12/22, treated with 60 mcg epinephrine and 10 mg dexamethasone with good response. Propofol Other: See Comments Hypotension Current Medications Current Outpatient Medications on File Prior to Visit Medication Sig metoprolol succinate ER (TOPROL XL) 50 mg 24 hr tablet Take 1 tablet by mouth two times a day. losartan (COZAAR) 50 mg tablet Take 1 tablet by mouth once daily. potassium chloride (K-TAB) 10 mEq tablet Take 1 tablet by mouth once daily. furosemide (LASIX) 20 mg tablet Take 2 tablets by mouth once daily. TAKE AN EXTRA 20 MG in the afternoon if you note greater than 3 lbs weight gain in 24 hours simvastatin (ZOCOR) 20 mg tablet Take 1 tablet by mouth daily at bedtime. spironolactone (ALDACTONE) 25 mg tablet Take 0.5 tablets by mouth once daily. omeprazole (PRILOSEC) 40 mg capsule Take 1 capsule by mouth once daily. Blood Pressure Monitor (BLOOD PRESSURE KIT) 1 Each once daily. aspirin 81 mg chewable tablet Take 1 tablet by mouth once daily. acetaminophen (TYLENOL) 500 mg tablet Take 1-2 tablets by mouth every 6 hours as needed. blood sugar diagnostic (BLOOD GLUCOSE TEST) test strip Test blood sugar(s) 2 times daily. Dx: Type 2 DM - Controlled E11.9 Insulin: No UBIDECARENONE (COQ-10 ORAL) Take 1 capsule by mouth once daily. No current facility-administered medications on file prior to visit. Social History Social History Tobacco Use Smoking status: Former Current packs/day: 0.00 Average packs/day: 0.3 packs/day for 2.0 years (0.5 ttl pk-yrs) Types: Cigarettes Start date: 1965 Quit date: 1967 Years since quittin.3 Smokeless tobacco: Never Vaping Use Vaping status: Never Used Substance Use Topics Alcohol use: Not Currently Alcohol/week: 1.0 standard drink of alcohol Types: 1 Glasses of Wine (5oz) per week Comment: red wine 2-3 times a week- occasional Drug use: No Review of Symptoms REVIEW OF SYSTEMS SEE HPI EXAM: BP 147/68 Pulse 84 Wt 64.4 kg (142 lb) BMI 25.97 kg/m? General Appearance: Well appearing, alert, in no acute distress, well-hydrated, well nourished.. Health Maintenance List Depression Screening Never done BP Controlled (<130/80) Never done Shingrix Vaccine(2 of 2) due on 01/03/2019 Diabetic Foot Exam due on 04/06/2023 Advance Directive Discussion due on 07/05/2024 Anxiety Screening due on 07/07/2025 Covid-19 Vaccine() due on 07/07/2025 HbA1C due on 04/22/2025 Dilated Retinal Exam due on 04/26/2025 Annual PCP Team Chronic Disease Visit due on 07/07/2025 Serum Creatinine due on 07/07/2025 LDL Cholesterol due on 10/02/2025 Urine Albumin:Creatinine Ratio due on 10/21/2025 Hemoglobin/Hematocrit due on 10/28/2025 DTaP,Tdap,Td Vaccine(3 - Td or Tdap) due on 11/26/2033 Bone Density Screening Completed Influenza Vaccine Completed RSV Vaccine Completed Pneumococcal Vaccine: 50+ Completed Mammogram Screening Discontinued Colorectal Cancer Screening Discontinued ASSESSMENT/PLAN: 1. Acute mesenteric ischemia (HCC) - ICD9: 557.0, ICD10: K55.059 (primary diagnosis) - ASPIRIN 81 MG CHEWABLE TABLET 2. MONIQUE (acute kidney injury) - ICD9: 584.9, ICD10: N17.9 - Will repeat CMP. Informed patient if Creatinine was still elevated she may need to go the ER. - COMPREHENSIVE METABOLIC PANEL 3. Gastrointestinal hemorrhage, unspecified gastrointestinal hemorrhage type - ICD9: 578.9, ICD10: K92.2 - Will repeat Cbc. Informed patient if Hemoglobin is below 7 she may need to go the ER. - COMPLETE BLOOD COUNT AND DIFFERENTIAL 4. Hypomagnesemia - ICD9: 275.2, ICD10: E83.42 - MAGNESIUM 5. 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 Acute on chronic diastolic congestive heart failure (HCC) - ICD9: 428.33, 428.0, ICD10: I50.33 - HFpEF 50+ - Compensated - Continue current medications - Encouraged sodium restriction - Encouraged daily weights - Call if 3 lbs gained in 1 days - Will contact Dr. Arriaga's office for sooner follow up to discuss recommendations from cardiology/nephrology from [facility]. 7. Hospital discharge follow-up - ICD9: V67.59, ICD10: Z09 -23 days inpatient at [facility]. Shaye Domingo, TERI.JASPREET RIBERAOV Observed: 10/31/2024 11:00 AM Status: COMPLETED Source: [facility] BERTA SANCHES ([id number]) 1945 F [place] Date Time Provider Department 10/31/24 11:00 AM SHAYE DOMINGO During your visit today, we recorded the following information about you: Pulse Blood pressure Weight 84/minute 147/68 64.4 kg Shaye Domingo APRN.MINCEMEAT MAKER 10/31/2024 12:52 PM Signed Chief Complaint Patient presents with: Hospital F/U HPI Berta Sanches is a 79 year old female who presents here today for Above Complaints.. Acute Mesenteric Ischemia: - Initially admitted to [facility] on 10/02/2024. - Underwent femoral ultrasound-guided angiogram with angioplasty and stenting of the SMA. - Required CRRT for MONIQUE post-op. - Developed AFib with RVR post-op. - Discharged after 23-day hospitalization. Acute on Chronic Heart Failure: - Given IV Lasix during initial admission. - Readmitted to [facility] on 10/15/2024 for acute on chronic decompensated heart failure and GI bleeding. - Echocardiogram on 10/03/2024 showed EF 55-60%, normal systolic function. - Discharged against medical advice; nephrology recommended against discharge due to worsening creatinine function. - Nephrology recommended slow introduction of Bumex, spironolactone, Jardiance, and Entresto as tolerated; no prescriptions given due to AMA discharge. - Follow-up appointments with cardiology on 12/11/2024 and 02/26/2025, and with Deysi Loza on 01/10/2025. GI Bleeding: - Colonoscopy on 10/17/2024 showed blood and clot through the left colon at approximately 45 cm from the entry site, severely ulcerated mucosa with stigmata of recent bleeding, and a very large and adherent clot occluding the lumen. - Received 1 unit of packed red blood cells. MONIQUE: - Required CRRT post-op. - Creatinine levels during hospitalization were 1.6 and 2.0; baseline creatinine was 1.12 in July. - Noted increased urination since returning home. Past medical history, appointments, medications, allergies reviewed. Previous Medical History PAST MEDICAL HISTORY Diagnosis Date Abnormal colonoscopy 11/26/2016 08/15/15 colonoscopy for anemia hgb 10.8 with bx ileocecal valve with ischemic bowel disease with focal mucosal ulceration Abnormal CT of the abdomen 07/13/2015 diffuse calcification aorta without dilitation, wall thcikening right colon suspicious for mass (ileocecal ulcer on colonoscopy), diverticulosis right colon Abnormal CXR chronic bilateral interstitial markings, moderate cardiomegaly Atrial fibrillation (HCC) Pedro aneurysm of anterior communicating artery Dr. Aaron [facility] Bilateral carotid artery stenosis 11/26/2016 05/27/16 US moderate 50-69% stenosis right and left Bilateral pneumonia 07/20/2015 Cancer of cervix (HCC) Cervical cancer (HCC) 1973 Chest pain 06/01/2015 negative work up with nuclar stress CHF (congestive heart failure) (HCC) Cholesteatoma of right ear surgical removal Chronic mastoiditis of left side Chronic renal failure, stage 3b (HCC) 04/15/2022 Diabetes (HCC) Diabetes (HCC) GERD (gastroesophageal reflux disease) H/O: GI bleed High blood pressure Hypercholesterolemia Mastoiditis of right side s/p mastoidectomy, complete opacitificationright tympanic cavity and mastoid cells on CT 06/01/16 Mitral valve regurgitation Pacemaker 10/21/[address] TRELL VERNON [id number] pulse generator, his bundle lead, right atrial lead Peripheral arterial disease (HCC) Rheumatic fever Steatosis, liver 03/26/2014 fatty liver on US. No gallstones Tachy-lionel syndrome (HCC) Previous Surgical History PAST SURGICAL HISTORY Procedure Laterality Date ABLATION 2018 for afib ANESTHESIA EXTERNAL MIDDLE AND INNER EAR W/BX NOS 2002, 2004,04/30/15 CARDIOVERSION 2018 EGD 02/28/2021 ESOPHAGOGASTRODUODENOSCOPY TRANSORAL DIAGNOSTIC 02/28/2021 LAP COLECTOMY, SIGMOID W/SUPERVISOR PLASTIC SHEETS 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 Lua PACEMAKER 10/2019 PART. HYSTERECTOMY W/WO RMVL OVARIES/TUBES 1973 h/o cervical cancer ovaries remain PAST SURGICAL HISTORY OF 1996 Aortic valve repair, Dr. Apodaca PAST SURGICAL HISTORY OF 2001 [address] Beltrán, [facility] PAST SURGICAL HISTORY OF 2015 clipping and coil for brain aneurysm Family History FAMILY HISTORY Problem Relation Age of Onset other (Heart Problems) Mother other (myocardial infarction) Mother other (cardiovascular disease) Mother other (Heart Attack) Father other (cardiovascular disease) Father Diabetes Maternal Grandmother Patient Allergies ALLERGIES Allergen Reactions Protamine Anaphylaxis Had acute drop in blood pressure and end tidal Co2 shortly after administration during watchman procedure on 01/12/22, treated with 60 mcg epinephrine and 10 mg dexamethasone with good response. Propofol Other: See Comments Hypotension Current Medications Current Outpatient Medications on File Prior to Visit Medication Sig metoprolol succinate ER (TOPROL XL) 50 mg 24 hr tablet Take 1 tablet by mouth two times a day. losartan (COZAAR) 50 mg tablet Take 1 tablet by mouth once daily. potassium chloride (K-TAB) 10 mEq tablet Take 1 tablet by mouth once daily. furosemide (LASIX) 20 mg tablet Take 2 tablets by mouth once daily. TAKE AN EXTRA 20 MG in the afternoon if you note greater than 3 lbs weight gain in 24 hours simvastatin (ZOCOR) 20 mg tablet Take 1 tablet by mouth daily at bedtime. spironolactone (ALDACTONE) 25 mg tablet Take 0.5 tablets by mouth once daily. omeprazole (PRILOSEC) 40 mg capsule Take 1 capsule by mouth once daily. Blood Pressure Monitor (BLOOD PRESSURE KIT) 1 Each once daily. aspirin 81 mg chewable tablet Take 1 tablet by mouth once daily. acetaminophen (TYLENOL) 500 mg tablet Take 1-2 tablets by mouth every 6 hours as needed. blood sugar diagnostic (BLOOD GLUCOSE TEST) test strip Test blood sugar(s) 2 times daily. Dx: Type 2 DM - Controlled E11.9 Insulin: No UBIDECARENONE (COQ-10 ORAL) Take 1 capsule by mouth once daily. No current facility-administered medications on file prior to visit. Social History Social History Tobacco Use Smoking status: Former Current packs/day: 0.00 Average packs/day: 0.3 packs/day for 2.0 years (0.5 ttl pk-yrs) Types: Cigarettes Start date: 1965 Quit date: 1967 Years since quittin.3 Smokeless tobacco: Never Vaping Use Vaping status: Never Used Substance Use Topics Alcohol use: Not Currently Alcohol/week: 1.0 standard drink of alcohol Types: 1 Glasses of Wine (5oz) per week Comment: red wine 2-3 times a week- occasional Drug use: No Review of Symptoms REVIEW OF SYSTEMS SEE HPI EXAM: BP 147/68 Pulse 84 Wt 64.4 kg (142 lb) BMI 25.97 kg/m? General Appearance: Well appearing, alert, in no acute distress, well-hydrated, well nourished.. Health Maintenance List Depression Screening Never done BP Controlled (<130/80) Never done Shingrix Vaccine(2 of 2) due on 01/03/2019 Diabetic Foot Exam due on 04/06/2023 Advance Directive Discussion due on 07/05/2024 Anxiety Screening due on 07/07/2025 Covid-19 Vaccine() due on 07/07/2025 HbA1C due on 04/22/2025 Dilated Retinal Exam due on 04/26/2025 Annual PCP Team Chronic Disease Visit due on 07/07/2025 Serum Creatinine due on 07/07/2025 LDL Cholesterol due on 10/02/2025 Urine Albumin:Creatinine Ratio due on 10/21/2025 Hemoglobin/Hematocrit due on 10/28/2025 DTaP,Tdap,Td Vaccine(3 - Td or Tdap) due on 11/26/2033 Bone Density Screening Completed Influenza Vaccine Completed RSV Vaccine Completed Pneumococcal Vaccine: 50+ Completed Mammogram Screening Discontinued Colorectal Cancer Screening Discontinued ASSESSMENT/PLAN: 1. Acute mesenteric ischemia (HCC) - ICD9: 557.0, ICD10: K55.059 (primary diagnosis) - ASPIRIN 81 MG CHEWABLE TABLET 2. MONIQUE (acute kidney injury) - ICD9: 584.9, ICD10: N17.9 - Will repeat CMP. Informed patient if Creatinine was still elevated she may need to go the ER. - COMPREHENSIVE METABOLIC PANEL 3. Gastrointestinal hemorrhage, unspecified gastrointestinal hemorrhage type - ICD9: 578.9, ICD10: K92.2 - Will repeat Cbc. Informed patient if Hemoglobin is below 7 she may need to go the ER. - COMPLETE BLOOD COUNT AND DIFFERENTIAL 4. Hypomagnesemia - ICD9: 275.2, ICD10: E83.42 - MAGNESIUM 5. 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 Acute on chronic diastolic congestive heart failure (HCC) - ICD9: 428.33, 428.0, ICD10: I50.33 - HFpEF 50+ - Compensated - Continue current medications - Encouraged sodium restriction - Encouraged daily weights - Call if 3 lbs gained in 1 days - Will contact Dr. Arriaga's office for sooner follow up to discuss recommendations from cardiology/nephrology from [facility]. 7. Hospital discharge follow-up - ICD9: V67.59, ICD10: Z09 -23 days inpatient at [facility]. Shaye Domingo APRN.MINCEMEAT MAKER Allergies As of Date: 10/31/2024 Noted Allergy Reaction PROTAMINE 01/12/2022 10 - Anaphylaxis Comments: Had acute drop in blood pressure and end tidal Co2 shortly after administration during watchman procedure on 01/12/22, treated with 60 mcg epinephrine and 10 mg dexamethasone with good response. PROPOFOL 04/07/2023 14 - Other: See Comments Comments: Hypotension Date Reviewed: 10/31/2024 Reviewed by: Arminda Bui MA - Fully Assessed Reason for Visit: Hospital F/U [57] Primary Visit Diagnosis:Acute mesenteric ischemia (HCC) [K55.059] Other Visit Diagnoses:MONIQUE (acute kidney injury) [N17.9] Gastrointestinal hemorrhage, unspecified gastrointestinal hemorrhage type [K92.2] Hypomagnesemia [E83.42] Physical deconditioning [R53.81] Acute on chronic diastolic congestive heart failure (HCC) [I50.33] Hospital discharge follow-up [Z09] Order(s):aspirin 81 mg chewable tabletTake 1 tablet by mouth once daily.Disp: 30 tabletRfl: 11 COMPLETE BLOOD COUNT AND DIFFERENTIAL [SQCBCDIF] Order #: [id number] FUTURE COMPREHENSIVE METABOLIC PANEL [SQCMP] Order #: [id number] FUTURE MAGNESIUM [SQMG1] Order #: [id number] FUTURE CONSULT TO PHYSICAL THERAPY [9032] Order #: [id number]: 1 FUTURE CONSULT TO CUSTOMER SUCCESS MANAGER [634134] Order #: [id number]: 1 FUTURE Prescriptions as of 10/31/2024 - clopidogrel (PLAVIX) 75 mg tablet Take 75 mg by mouth once daily. - pantoprazole DR (PROTONIX) 40 mg tablet Take 40 mg by mouth once daily. - atorvastatin (LIPITOR) 40 mg tablet Take 40 mg by mouth once daily. - aspirin 81 mg chewable tablet Take 1 tablet by mouth once daily. - metoprolol succinate ER (TOPROL XL) 50 mg 24 hr tablet Take 1 tablet by mouth two times a day. - losartan (COZAAR) 50 mg tablet Take 1 tablet by mouth once daily. - potassium chloride (K-TAB) 10 mEq tablet Take 1 tablet by mouth once daily. - furosemide (LASIX) 20 mg tablet Take 2 tablets by mouth once daily. TAKE AN EXTRA 20 MG in the afternoon if you note greater than 3 lbs weight gain in 24 hours - omeprazole (PRILOSEC) 40 mg capsule Take 1 capsule by mouth once daily. - Blood Pressure Monitor (BLOOD PRESSURE KIT) 1 Each once daily. - acetaminophen (TYLENOL) 500 mg tablet Take 1-2 tablets by mouth every 6 hours as needed. - blood sugar diagnostic (BLOOD GLUCOSE TEST) test strip Test blood sugar(s) 2 times daily. Dx: Type 2 DM - Controlled E11.9 Insulin: No - UBIDECARENONE (COQ-10 ORAL) Take 1 capsule by mouth once daily. Problem List As Of Date 10/31/2024 Noted Resolved History of prosthetic aortic valve replacement *10/10/2013 Aortic prosthetic valve regurgitation [T82.897A]10/10/2013 Paroxysmal atrial fibrillation (HCC) [I48.0] 10/10/2013 04/11/2023 HTN (hypertension) [I10] 10/10/2013 Hyperlipidemia with target LDL less than 70 [E7*11/20/2013 Type 2 diabetes mellitus without complication, *11/20/2013 09/12/2021 GERD (gastroesophageal reflux disease) [K21.9] 11/20/2013 Chronic anticoagulation [Z79.01] 11/20/2013 Fatigue [R53.83] 11/20/2013 SOB (shortness of breath) [R06.02] 11/20/2013 11/12/2023 H/O rheumatic heart disease [Z86.79] 11/20/2013 SUMMARY [V999.95] 12/09/2013 12/22/2018 Carotid artery disease (HCC) [I77.9] 12/09/2013 09/12/2021 Routine health maintenance [Z00.00] 01/08/2014 09/12/2021 Basal cell carcinoma [C44.91] 01/08/2014 Left shoulder pain [M25.512] 02/26/2014 Abdominal pain [R10.9] 02/26/2014 03/21/2022 Intracranial aneurysm [I67.1] 08/30/2015 10/05/2022 prison current use of antiarrhythmic medical*10/20/2016 09/12/2021 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] 11/19/2016 12/22/2018 Bilateral carotid artery stenosis [I65.23] 11/26/2016 Osteopenia of left lower leg [M85.862] 11/26/2016 Mastoiditis of right side [H70.91] 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] Personal history of colonic polyps [Z86.0100] 01/06/2017 Aortic stenosis [I35.0] 01/06/2017 12/22/2018 History of ischemic colitis [Z87.19] 01/06/2017 Adenomatous polyp of descending colon [D12.4] 01/06/2017 Skin cancer [C44.90] 01/06/2017 PAD (peripheral artery disease) (HCC) [I73.9] 01/06/2017 Pedro aneurysm of anterior communicating artery* Stage 3 chronic renal impairment associated wit*03/11/2017 Other chest pain [R07.89] 03/27/2019 09/19/2020 History of pulmonary embolism [Z86.711] 03/27/2019 Ascending aorta dilatation (HCC) [I77.810] 03/27/2019 Chronic bilateral pleural effusions [J90] 03/27/2019 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] 06/15/2019 Right renal mass [N28.89] 06/16/2019 Diverticulitis of large intestine with perforat*06/16/2019 09/12/2021 Diverticulitis large intestine w/o perforation *07/18/2019 Renal cell carcinoma, right (HCC) [C64.1] 10/17/2019 Iron deficiency anemia [D50.9] 10/24/2019 Anemia due to GI blood loss [D50.0] 10/24/2019 03/22/2022 Renal cell carcinoma (HCC) [C64.9] 10/24/2019 09/12/2021 Hypomagnesemia [E83.42] 10/26/2019 Gastrointestinal hemorrhage associated with acu*02/15/2020 Esophageal stenosis [K22.2] 10/28/2019 Dilated cardiomyopathy (HCC) [I42.0] 03/22/2020 Acute on chronic combined systolic and diastoli*09/19/2020 11/12/2023 SSS (sick sinus syndrome) (HCC) [I49.5] 10/21/2020 Encounter for support and coordination of trans*02/15/2021 09/12/2021 Duodenal ulcer [K26.9] 05/20/2021 Type 2 diabetes mellitus with diabetic peripher*09/12/2021 Atrial fibrillation (HCC) [I48.91] 01/12/2022 04/11/2023 Melena [K92.1] 02/22/2022 02/24/2022 Acute kidney injury (HCC) [N17.9] 02/22/2022 02/24/2022 Acute on chronic systolic heart failure (HCC) [*03/19/2022 03/22/2022 Longstanding persistent atrial fibrillation (HC*03/20/2022 S/P placement of cardiac pacemaker [Z95.0] 03/20/2022 CKD (chronic kidney disease) [N18.9] 03/21/2022 Platelet inhibition due to Plavix [Z79.02] 03/21/2022 Diverticulosis [K57.90] 03/21/2022 Lung nodule, solitary [R91.1] 03/22/2022 Red blood cell antibody positive [R76.8] 03/23/2022 Iron 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 *04/07/2022 Iron malabsorption [K90.9] 04/07/2022 Chronic renal failure, stage 3b (HCC) [N18.32] 04/15/2022 Spondylolisthesis at L4-L5 level [M43.16] 07/07/2022 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 Chronic diastolic (congestive) heart failure (H*11/09/2023 Prescriptions ordered this encounter Disp Refills Start End ASPIRIN 81 MG CHEWABLE TABLET 30 t* 11 10/31/2024 10/31/2025 Route: ORAL Sig: Take 1 tablet by mouth once daily. Medications Discontinued During This Encounter Prescriptions - simvastatin (ZOCOR) 20 mg tablet (Discontinued) Take 1 tablet by mouth daily at bedtime. - spironolactone (ALDACTONE) 25 mg tablet (Discontinued) Take 0.5 tablets by mouth once daily. - aspirin 81 mg chewable tablet (Discontinued) Take 1 tablet by mouth once daily. Level of Service: OFFICE/OUTPATIENT ESTABLISHED [facility] 30 MIN [[id number]] Additional E/M codes: VISIT CPLX INHERENT EANDM ASSOC WITH MED * Disposition: Return for as scheduled. LOS History for Encounter Level of Service: OFFICE/OUTPATIENT ESTABLISHED [facility] 30 MIN[[id number]] Date AND Time: 10-31-2024 12:52 PM Recorded by User: SHAYE DOMINGO Follow-up and Disposition History for Encounter Date Provider Department Center 10/31/2024 [id number] DOMINGO [facility] Encounter Status:Closed by SHAYE DOMINGO on 10/31/24 LIYA Observed: 10/12/2024 12:00 AM Status: COMPLETED Source: [facility] BERTA SANCHES ([id number]) 1945 F [facility] Date Time Provider Department 10/12/24 ALBIN GU [facility] During your visit today, we recorded the following information about you: Albin Gu APRN.[facility] 10/12/2024 12:36 PM Signed Patient called to schedule appt in [facility]. Patient also mentions she is currently in [place]. She was admitted to the hospital for abdominal pain. She was treated with intravenous lasix as well, per the patient. However, she mentions her admission weight being 136 lbs and upon discharge her weight was 157 lbs. The patient denies feeling short of breath however, feels she is retaining fluid and is worried. Discussed in detail the importance of taking the lasix as prescribed upon discharge. She was instructed to take 40 mg lasix BID for 5 days and then resume 20 mg lasix BID. Her losartan and spironolactone were held due to MONIQUE during stay; however, based on approx 20 lb weight gain instructed patient to resume 25 mg spironolactone for the next 4 days. Red flags reviewed with patient on when to go to ER. She will call office on Wednesday to review weight and symptoms. Patient understands plan of care. All questions answered at this time. Albin Gu APRN.[employer] Allergies As of Date: 10/12/2024 Noted Allergy Reaction PROTAMINE 01/12/2022 10 - Anaphylaxis Comments: Had acute drop in blood pressure and end tidal Co2 shortly after administration during watchman procedure on 01/12/22, treated with 60 mcg epinephrine and 10 mg dexamethasone with good response. PROPOFOL 04/07/2023 14 - Other: See Comments Comments: Hypotension Date Reviewed: 07/07/2024 Reviewed by: Abdi Rivera LPN - Fully Assessed Reason for Visit: Patient Update [1234] Prescriptions as of 10/12/2024 - metoprolol succinate ER (TOPROL XL) 50 mg 24 hr tablet Take 1 tablet by mouth two times a day. - losartan (COZAAR) 50 mg tablet Take 1 tablet by mouth once daily. - potassium chloride (K-TAB) 10 mEq tablet Take 1 tablet by mouth once daily. - furosemide (LASIX) 20 mg tablet Take 2 tablets by mouth once daily. TAKE AN EXTRA 20 MG in the afternoon if you note greater than 3 lbs weight gain in 24 hours - simvastatin (ZOCOR) 20 mg tablet Take 1 tablet by mouth daily at bedtime. - spironolactone (ALDACTONE) 25 mg tablet Take 0.5 tablets by mouth once daily. - omeprazole (PRILOSEC) 40 mg capsule Take 1 capsule by mouth once daily. - Blood Pressure Monitor (BLOOD PRESSURE KIT) 1 Each once daily. - aspirin 81 mg chewable tablet Take 1 tablet by mouth once daily. - acetaminophen (TYLENOL) 500 mg tablet Take 1-2 tablets by mouth every 6 hours as needed. - blood sugar diagnostic (BLOOD GLUCOSE TEST) test strip Test blood sugar(s) 2 times daily. Dx: Type 2 DM - Controlled E11.9 Insulin: No - UBIDECARENONE (COQ-10 ORAL) Take 1 capsule by mouth once daily. Problem List As Of Date 10/12/2024 Noted Resolved History of prosthetic aortic valve replacement *10/10/2013 Aortic prosthetic valve regurgitation [T82.897A]10/10/2013 Paroxysmal atrial fibrillation (HCC) [I48.0] 10/10/2013 04/11/2023 HTN (hypertension) [I10] 10/10/2013 Hyperlipidemia with target LDL less than 70 [E7*11/20/2013 Type 2 diabetes mellitus without complication, *11/20/2013 09/12/2021 GERD (gastroesophageal reflux disease) [K21.9] 11/20/2013 Chronic anticoagulation [Z79.01] 11/20/2013 Fatigue [R53.83] 11/20/2013 SOB (shortness of breath) [R06.02] 11/20/2013 11/12/2023 H/O rheumatic heart disease [Z86.79] 11/20/2013 SUMMARY [V999.95] 12/09/2013 12/22/2018 Carotid artery disease (HCC) [I77.9] 12/09/2013 09/12/2021 Routine health maintenance [Z00.00] 01/08/2014 09/12/2021 Basal cell carcinoma [C44.91] 01/08/2014 Left shoulder pain [M25.512] 02/26/2014 Abdominal pain [R10.9] 02/26/2014 03/21/2022 Intracranial aneurysm [I67.1] 08/30/2015 10/05/2022 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 09/12/2021 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] 11/19/2016 12/22/2018 Bilateral carotid artery stenosis [I65.23] 11/26/2016 Osteopenia of left lower leg [M85.862] 11/26/2016 Mastoiditis of right side [H70.91] 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] Personal history of colonic polyps [Z86.0100] 01/06/2017 Aortic stenosis [I35.0] 01/06/2017 12/22/2018 History of ischemic colitis [Z87.19] 01/06/2017 Adenomatous polyp of descending colon [D12.4] 01/06/2017 Skin cancer [C44.90] 01/06/2017 PAD (peripheral artery disease) (HCC) [I73.9] 01/06/2017 Pedro aneurysm of anterior communicating artery* Stage 3 chronic renal impairment associated wit*03/11/2017 Other chest pain [R07.89] 03/27/2019 09/19/2020 History of pulmonary embolism [Z86.711] 03/27/2019 Ascending aorta dilatation (HCC) [I77.810] 03/27/2019 Chronic bilateral pleural effusions [J90] 03/27/2019 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] 06/15/2019 Right renal mass [N28.89] 06/16/2019 Diverticulitis of large intestine with perforat*06/16/2019 09/12/2021 Diverticulitis large intestine w/o perforation *07/18/2019 Renal cell carcinoma, right (HCC) [C64.1] 10/17/2019 Iron deficiency anemia [D50.9] 10/24/2019 Anemia due to GI blood loss [D50.0] 10/24/2019 03/22/2022 Renal cell carcinoma (HCC) [C64.9] 10/24/2019 09/12/2021 Hypomagnesemia [E83.42] 10/26/2019 Gastrointestinal hemorrhage associated with acu*02/15/2020 Esophageal stenosis [K22.2] 10/28/2019 Dilated cardiomyopathy (HCC) [I42.0] 03/22/2020 Acute on chronic combined systolic and diastoli*09/19/2020 11/12/2023 SSS (sick sinus syndrome) (HCC) [I49.5] 10/21/2020 Encounter for support and coordination of trans*02/15/2021 09/12/2021 Duodenal ulcer [K26.9] 05/20/2021 Type 2 diabetes mellitus with diabetic peripher*09/12/2021 Atrial fibrillation (HCC) [I48.91] 01/12/2022 04/11/2023 Melena [K92.1] 02/22/2022 02/24/2022 Acute kidney injury (HCC) [N17.9] 02/22/2022 02/24/2022 Acute on chronic systolic heart failure (HCC) [*03/19/2022 03/22/2022 Longstanding persistent atrial fibrillation (HC*03/20/2022 S/P placement of cardiac pacemaker [Z95.0] 03/20/2022 CKD (chronic kidney disease) [N18.9] 03/21/2022 Platelet inhibition due to Plavix [Z79.02] 03/21/2022 Diverticulosis [K57.90] 03/21/2022 Lung nodule, solitary [R91.1] 03/22/2022 Red blood cell antibody positive [R76.8] 03/23/2022 Iron 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 *04/07/2022 Iron malabsorption [K90.9] 04/07/2022 Chronic renal failure, stage 3b (HCC) [N18.32] 04/15/2022 Spondylolisthesis at L4-L5 level [M43.16] 07/07/2022 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 Chronic diastolic (congestive) heart failure (H*11/09/2023 Encounter Status:Closed by ALBIN GU on 10/12/24 LIYA Observed: 07/31/2024 12:00 AM Status: COMPLETED Source: [facility] Telephone ([facility]) BERTA SANCHES ([id number]) 1945 [facility] Date Time Provider Department 07/31/24 MELIDA KOO [facility] During your visit today, we recorded the following information about you: Melida Koo APRN.CNP 07/31/2024 12:00 PM Signed Pt called to request refill for KDur as she has run out of prescription. She states that she is currently in [place] and will be in [place] until October. [facility] called in [place], [place]. Spoke with Pharmacist on duty. Rx for KDur 10 meq PO daily given verbally #90 with no refills. Melida Koo APRN.CNP Allergies As of Date: 07/31/2024 Noted Allergy Reaction PROTAMINE 01/12/2022 10 - Anaphylaxis Comments: Had acute drop in blood pressure and end tidal Co2 shortly after administration during watchman procedure on 01/12/22, treated with 60 mcg epinephrine and 10 mg dexamethasone with good response. PROPOFOL 04/07/2023 14 - Other: See Comments Comments: Hypotension Date Reviewed: 07/07/2024 Reviewed by: Abdi Rivera LPN - Fully Assessed Prescriptions as of 07/31/2024 - metoprolol succinate ER (TOPROL XL) 50 mg 24 hr tablet Take 1 tablet by mouth two times a day. - losartan (COZAAR) 50 mg tablet Take 1 tablet by mouth once daily. - potassium chloride (K-TAB) 10 mEq tablet Take 1 tablet by mouth once daily. - furosemide (LASIX) 20 mg tablet Take 2 tablets by mouth once daily. TAKE AN EXTRA 20 MG in the afternoon if you note greater than 3 lbs weight gain in 24 hours - simvastatin (ZOCOR) 20 mg tablet Take 1 tablet by mouth daily at bedtime. - spironolactone (ALDACTONE) 25 mg tablet Take 0.5 tablets by mouth once daily. - omeprazole (PRILOSEC) 40 mg capsule Take 1 capsule by mouth once daily. - Blood Pressure Monitor (BLOOD PRESSURE KIT) 1 Each once daily. - aspirin 81 mg chewable tablet Take 1 tablet by mouth once daily. - acetaminophen (TYLENOL) 500 mg tablet Take 1-2 tablets by mouth every 6 hours as needed. - blood sugar diagnostic (BLOOD GLUCOSE TEST) test strip Test blood sugar(s) 2 times daily. Dx: Type 2 DM - Controlled E11.9 Insulin: No - UBIDECARENONE (COQ-10 ORAL) Take 1 capsule by mouth once daily. 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]10/10/2013 Paroxysmal atrial fibrillation (HCC) [I48.0] 10/10/2013 04/11/2023 HTN (hypertension) [I10] 10/10/2013 Hyperlipidemia with target LDL less than 70 [E7*11/20/2013 Type 2 diabetes mellitus without complication, *11/20/2013 09/12/2021 GERD (gastroesophageal reflux disease) [K21.9] 11/20/2013 Chronic anticoagulation [Z79.01] 11/20/2013 Fatigue [R53.83] 11/20/2013 SOB (shortness of breath) [R06.02] 11/20/2013 11/12/2023 H/O rheumatic heart disease [Z86.79] 11/20/2013 SUMMARY [V999.95] 12/09/2013 12/22/2018 Carotid artery disease (HCC) [I77.9] 12/09/2013 09/12/2021 Routine health maintenance [Z00.00] 01/08/2014 09/12/2021 Basal cell carcinoma [C44.91] 01/08/2014 Left shoulder pain [M25.512] 02/26/2014 Abdominal pain [R10.9] 02/26/2014 03/21/2022 Intracranial aneurysm [I67.1] 08/30/2015 10/05/2022 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 09/12/2021 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] 11/19/2016 12/22/2018 Bilateral carotid artery stenosis [I65.23] 11/26/2016 Osteopenia of left lower leg [M85.862] 11/26/2016 Mastoiditis of right side [H70.91] 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] Personal history of colonic polyps [Z86.0100] 01/06/2017 Aortic stenosis [I35.0] 01/06/2017 12/22/2018 History of ischemic colitis [Z87.19] 01/06/2017 Adenomatous polyp of descending colon [D12.4] 01/06/2017 Skin cancer [C44.90] 01/06/2017 PAD (peripheral artery disease) (HCC) [I73.9] 01/06/2017 Pedro aneurysm of anterior communicating artery* Stage 3 chronic renal impairment associated wit*03/11/2017 Other chest pain [R07.89] 03/27/2019 09/19/2020 History of pulmonary embolism [Z86.711] 03/27/2019 Ascending aorta dilatation (HCC) [I77.810] 03/27/2019 Chronic bilateral pleural effusions [J90] 03/27/2019 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] 06/15/2019 Right renal mass [N28.89] 06/16/2019 Diverticulitis of large intestine with perforat*06/16/2019 09/12/2021 Diverticulitis large intestine w/o perforation *07/18/2019 Renal cell carcinoma, right (HCC) [C64.1] 10/17/2019 Iron deficiency anemia [D50.9] 10/24/2019 Anemia due to GI blood loss [D50.0] 10/24/2019 03/22/2022 Renal cell carcinoma (HCC) [C64.9] 10/24/2019 09/12/2021 Hypomagnesemia [E83.42] 10/26/2019 Gastrointestinal hemorrhage associated with acu*02/15/2020 Esophageal stenosis [K22.2] 10/28/2019 Dilated cardiomyopathy (HCC) [I42.0] 03/22/2020 Acute on chronic combined systolic and diastoli*09/19/2020 11/12/2023 SSS (sick sinus syndrome) (HCC) [I49.5] 10/21/2020 Encounter for support and coordination of trans*02/15/2021 09/12/2021 Duodenal ulcer [K26.9] 05/20/2021 Type 2 diabetes mellitus with diabetic peripher*09/12/2021 Atrial fibrillation (HCC) [I48.91] 01/12/2022 04/11/2023 Melena [K92.1] 02/22/2022 02/24/2022 Acute kidney injury (HCC) [N17.9] 02/22/2022 02/24/2022 Acute on chronic systolic heart failure (HCC) [*03/19/2022 03/22/2022 Longstanding persistent atrial fibrillation (HC*03/20/2022 S/P placement of cardiac pacemaker [Z95.0] 03/20/2022 CKD (chronic kidney disease) [N18.9] 03/21/2022 Platelet inhibition due to Plavix [Z79.02] 03/21/2022 Diverticulosis [K57.90] 03/21/2022 Lung nodule, solitary [R91.1] 03/22/2022 Red blood cell antibody positive [R76.8] 03/23/2022 Iron 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 *04/07/2022 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 Author Type: LICENSED NURSE Type: Progress Notes Filed: 07/07/2024 12:41 Note Text: Ambulatory Ear Lavage Pre-treatment: No pre-treatment Treatment: Right ear Equipment and Irrigation solution and Volume used: Single use syringe with single use irrigation tip Water Total Irrigation Volume: 500cc Return flow appearance: Debris Patient tolerated procedure: yes Tympanic membrane assessment: Tympanic membrane assessed by LIP pre and post procedure ALBUMIN/CREATININE RATIO, URINE Collect ed: 07/07/2024 9:35 AM Status: F Source: [facility] Order Comment: Specimen Type : URINE SPECIMEN Ordering Facility: [facility] Address: [address] [place] [address] TYPE CODE TESTS RESULT OUT OF RANGE REFERENCE UNITS LAB 2161-8(LOINC) Creat Ur-mCnc 61.6 20.0-300.0 m g/dL LAB 58840-6(LOINC ) Microalbumin Ur-mCnc 21.0 mg/L LAB 9318-7(LOINC) Albumin/Creat Ur 34 High <30 mg/g Result Comment: Adult Male a nd Female Nephrotic Criteria: <30 mg/g is considered normal to mildly increased 30-300 mg/g is considered moderately increased >300 mg/g is considered severely increased KDIGO. (2013). KDIGO 2012 Clinical Practice Guideline for the Evaluation and Management of Chronic Kidney Disease. Official Journal of the International Society of Nephrology, 3(1), 1-150. Performed By: #### UACR #### [facility] CLIA [id number] [address] [place] [address] [place] [address] [place] BAS METAB 2000 PNL SERPL Collected: 09/2024 9:24 AM Status: F Source: [facility] Order Comment: Specimen Type : BLOOD SPECIMEN Ordering Facility: [facility] Address: [facility] [place] [address] TYPE CODE TESTS RESULT OUT OF RANGE REFERENCE UNITS LAB 2345-7(LOINC) Glucose SerPl-mCnc 118 High 74-99 mg/dL Result Comment: The [place] Diabetes Association (ADA) provides guidance for cutoff values for fasting glucose and random glucose. The ADA defines fasting as no caloric intake for at least 8 hours. Fasting plasma glucose results between 100 to 125 mg/dL indicate increased risk for diabetes (prediabetes). Fasting plasma glucose results greater than or equal to 126 mg/dL meet the criteria for diagnosis of diabetes. In the absence of unequivocal hyperglycemia, results should be confirmed by repeat testing. In a patient with classic symptoms of hyperglycemia or hyperglycemic crisis, random plasma glucose results greater than or equal to 200 mg/dL meet the criteria for diagnosis of diabetes. Reference: Standards of Medical Care in Diabetes 2016, [place] Diabetes Association. Diabetes Care. 2016.39(Suppl 1). LAB 3094-0(LOINC) BUN SerPl-mCnc 34 High 7-21 mg/ dL LAB 2160-0(LOINC) Creat SerPl-mCnc 1.12 High 0.58-0.96 mg/dL LAB 2951-2(LOINC) Sodium SerPl-sCnc 138 136-144 mmol/L LAB 2823-3(LOINC) Potassium SerPl-sCnc 4.4 3.7-5.1 mmol/L LAB 2075-0(LOINC) Chloride SerPl-sCnc 100 98-107 mmol/L LAB 2028-9(LOINC) CO2 SerPl-sCnc 25 22-30 mmo l/L LAB 49141-7(LOINC) Anion Gap SerPl-sCnc 13 8-15 mmol/L LAB 43018-8(LOINC) Calcium SerPl-mCnc 9.8 8.5-10.2 mg/dL LAB 63706-9(LOINC) Creatinine + eGFR Pnl SerPlBld 50 Low >=60 mL/min/1 .73m??? Result Comment: Estimated Gl omerular Filtration Rate (eGFR) is calculated using the 2020 CKD-EPI creatinine equation. This equation utilizes serum creatinine, sex, and age as parameters. The creatinine assay has traceable calibration to isotope dilution-mass spectrometry. Refer to KDIGO guidelines for clinical interpretation. In patients with unstable renal function, e.g. those with acute kidney injury, the eGFR may not accurately reflect actual GFR. Performed By: #### 68058-4, 6-3 #### [facility] CLIA [id number] [address] [place] [address] OF [facility] TSH SERPL-ACNC Collected: 9:24 AM Status: F Source: [facility] Comment: Specimen Type : BLOOD SPECIMEN Ordering Facility: [facility] Address: [address] [place] [address] TYPE CODE TESTS RESULT OUT OF RANGE REFERENCE UNITS LAB 3015-3(LOINC) TSH SerPl-aCnc 2.650 0.270-4.200 mIU/L Performed By: #### 98291-7, 3015-3 #### [facility] CLIA [id number] [address] [place] [address] OF [facility] 25(OH)D3 SERPL-MCNC Collected: 07/07/19 9:24 AM Status: F Source: [facility] Comment: Specimen Type : BLOOD SPECIMEN Ordering Facility: [facility] Address: [address] [place] [address] TYPE CODE TESTS RESULT OUT OF RANGE REFERENCE UNITS LAB 1988-3(LOINC) 25(OH)D3 SerPl-mCnc 41.9 31.0-80.0 ng/mL Result Comment: Classificati on of 25 OH Vitamin D status: Deficiency/Insufficiency: < or = 30 ng/ml. Sufficiency/Optimal Levels: 31-80 ng/mL Toxicity: > 100 ng/mL. Test performed by chemiluminescent immunoassay. Performed By: #### 1988-3 ## ## [facility] CLIA [id number] [address] [place] [address] OF ROBERT DEPRECATED HGB A1C BLD Collected: 07/07 9:24 AM Status: F Source: [facility] Comment: Specimen Type : BLOOD SPECIMEN Ordering Facility: [facility] Address: [address] [place] [address] TYPE CODE TESTS RESULT OUT OF RANGE REFERENCE UNITS LAB 4548-4(LOINC) HbA1c MFr Bld 6.9 High 4.3-5.6 % Result Comment: [place] Meche betes Association guidelines indicate that patients with HgbA1c in the range 5.7-6.4% are at increased risk for development of diabetes, and intervention by lifestyle modification may be beneficial. HgbA1c greater or equal to 6.5% is considered diagnostic of diabetes. LAB 92901-5(LOINC) Est. average glucose Bld gHb Est-mCnc 151 mg/dL Result Comment: eAG: (Estima hermila average glucose) is a calculated value from HgbA1c and is vaccine customer representative of the average blood glucose level in the last 2-3 month period. Performed By: #### 06187-8 # ### [facility] CLIA [id number] [address] [place] [address] OF [place] PROGRESS Observed: 07/07/2024 8:02 AM Status: COMPLETED Source: [facility] HNO ID: [id number] Author: DEYSI NICHOLSON APRN.[employer] Service: ? Author Type: Nurse Practitioner Type: Progress Notes Filed: 07/07/2024 12:41 Note Text: This is a 78 year old female who presents today with: Patient presents with: Establish Care HISTORY OF PRESENT ILLNESS: Berta Sanches is a 78 year old female. Patient presents with: Establish Care Pt presents today to [facility]. HTN: Patient is compliant with meds Yes. Was out of losartan a couple of days. Monitors bp at home: sometimes. Denies side effects: gets a lot of gas. Chest pain: wss getting some twinges and was concerned re: pacemaker placement -- had a remote check and placement was okay. Dyspnea: a little if she goes up and down stairs. Edema: No. Palpitations: No. Syncope: No. Headache: No. Dizziness: No. DM: Reports overall feeling well. Medication side effects: n/a. . Home sugar checks: very rarely. Hypoglycemic spells: No. Watching diet: Yes. Unexpected weight loss: No. Polyuria, polydipsia: No. Vision Changes: No.Last eye exam 04/26. Foot lesions or numbness or pain: No. HYPERLIPIDEMIA: Patient is taking medications: Yes. Patient is watching diet: Yes. Patient denies myalgias: Yes. Patient denies gi upset: Yes Gets intermittent leg pain -- mainly in the thighs. Not cramp. Is a little better when she wears her support stockings. A.Fib: Hx of watchman. Last remote study, per patient 16% a. Fib. CHF: Follows w/ heart failure clinic. GERD: Controlled w/ PPI. Chronic CHF PAST MEDICAL HISTORY: PAST MEDICAL HISTORY Diagnosis Date Abnormal colonoscopy 11/26/2016 08/15/15 colonoscopy for anemia hgb 10.8 with bx ileocecal valve with ischemic bowel disease with focal mucosal ulceration Abnormal CT of the abdomen 07/13/2015 diffuse calcification aorta without dilitation, wall thcikening right colon suspicious for mass (ileocecal ulcer on colonoscopy), diverticulosis right colon Abnormal CXR chronic bilateral interstitial markings, moderate cardiomegaly Atrial fibrillation (HCC) Pedro aneurysm of anterior communicating artery Dr. Aaron [facility] Bilateral carotid artery stenosis 11/26/2016 05/27/16 US moderate 50-69% stenosis right and left Bilateral pneumonia 07/20/2015 Cancer of cervix (HCC) Cervical cancer (HCC) 1973 Chest pain 06/01/2015 negative work up with nuclar stress CHF (congestive heart failure) (HCC) Cholesteatoma of right ear surgical removal Chronic mastoiditis of left side Chronic renal failure, stage 3b (HCC) 04/15/2022 Diabetes (HCC) Diabetes (HCC) GERD (gastroesophageal reflux disease) H/O: GI bleed High blood pressure Hypercholesterolemia Mastoiditis of right side s/p mastoidectomy, complete opacitificationright tympanic cavity and mastoid cells on CT 06/01/16 Mitral valve regurgitation Pacemaker 10/21/[address] TRELL VERNON [id number] pulse generator, his bundle lead, right atrial lead Peripheral arterial disease (HCC) Rheumatic fever Steatosis, liver 03/26/2014 fatty liver on US. 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 Lua PACEMAKER 10/2019 PART. HYSTERECTOMY W/WO RMVL OVARIES/TUBES 1974 h/o cervical cancer ovaries remain PAST SURGICAL HISTORY OF 1996 Aortic valve repair, Dr. Apodaca PAST SURGICAL HISTORY OF 2001 [address] Beltrán, [facility] PAST SURGICAL HISTORY OF 2016 clipping and coil for brain aneurysm ALLERGIES Protamine and Propofol MEDICATIONS Current Outpatient Medications Medication Sig potassium chloride (K-TAB) 10 mEq tablet Take 1 tablet by mouth once daily. furosemide (LASIX) 20 mg tablet Take 2 tablets by mouth once daily. TAKE AN EXTRA 20 MG in the afternoon if you note greater than 3 lbs weight gain in 24 hours simvastatin (ZOCOR) 20 mg tablet Take 1 tablet by mouth daily at bedtime. spironolactone (ALDACTONE) 25 mg tablet Take 0.5 tablets by mouth once daily. omeprazole (PRILOSEC) 40 mg capsule Take 1 capsule by mouth once daily. metoprolol succinate ER (TOPROL XL) 50 mg 24 hr tablet Take 1 tablet by mouth two times a day. losartan (COZAAR) 50 mg tablet Take 1 tablet by mouth once daily. Blood Pressure Monitor (BLOOD PRESSURE KIT) 1 Each once daily. aspirin 81 mg chewable tablet Take 1 tablet by mouth once daily. acetaminophen (TYLENOL) 500 mg tablet Take 1-2 tablets by mouth every 6 hours as needed. blood sugar diagnostic (BLOOD GLUCOSE TEST) test strip Test blood sugar(s) 2 times daily. Dx: Type 2 DM - Controlled E11.9 Insulin: No UBIDECARENONE (COQ-10 ORAL) Take 1 capsule by mouth once daily. No current facility-administered medications for this visit. FAMILY HISTORY Problem Relation Age of Onset other (Heart Problems) Mother other (myocardial infarction) Mother other (cardiovascular disease) Mother other (Heart Attack) Father other (cardiovascular disease) Father Diabetes Maternal Grandmother Social History Tobacco Use Smoking status: Former Current packs/day: 0.00 Average packs/day: 0.3 packs/day for 2.0 years (0.5 ttl pk-yrs) Types: Cigarettes Start date: 1965 Quit date: 1967 Years since quittin.0 Smokeless tobacco: Never Vaping Use Vaping status: Never Used Substance Use Topics Alcohol use: Not Currently Alcohol/week: 1.0 standard drink of alcohol Types: 1 Glasses of Wine (5oz) per week Comment: red wine 2-3 times a week- occasional Drug use: No EXAM: BP 136/70 Pulse 69 Resp 16 Wt 63.5 kg (140 lb) SpO2 94% BMI 25.61 kg/m? PHYSICAL EXAM: General Appearance: Well appearing, alert, in no acute distress, well-hydrated, well nourished.. Skin: Skin color, texture, turgor normal, no suspicious rashes or lesions. Head: Normocephalic, no masses, lesions, tenderness or abnormalities. Eyes: Anicteric sclera. Pupils are equally round and reactive to light. Extraocular movements are intact. . Ears: External ears normal, canals clear. Right canal with moderate cerumen successful irrigated by nursing. + scar tissues. Oropharynx: Lips, mucosa, and tongue normal, teeth and gums normal, oropharynx normal. Neck: Supple, no adenopathy; thyroid symmetric, normal size, no bruits. Lungs: Lungs clear to auscultation. No wheezing, rhonchi, rales.. Heart: RRR without murmur, gallop, or rubs. No ectopy. Abdomen: Abdomen soft, non-tender. Bowel sounds normal. No masses, organomegaly. Extremities: No deformities, edema, skin discoloration, clubbing or cyanosis. Good capillary refill. . Neurologic: Gait normal. ASSESSMENT/PLAN: 1. Primary hypertension - ICD9: 401.9, ICD10: I10 (primary diagnosis) - Controlled - Continue current medications - Recommend home blood pressure monitoring, to bring results to next visit - Encouraged sodium restriction, DASH or Mediterranean diet - Recommend regular aerobic exercise - METOPROLOL SUCCINATE ER 50 MG TABLET,EXTENDED RELEASE 24 HR - LOSARTAN 50 MG TABLET - BASIC METABOLIC PANEL 2. Pain in both lower extremities - ICD9: 729.5, ICD10: M79.604, M79.605 Stay well hydrated. Can continue compression. - THYROID STIMULATING HORMONE - VITAMIN D 25 HYDROXY 3. Type 2 diabetes mellitus with diabetic peripheral angiopathy without gangrene, without long-term current use of insulin (HCC) - ICD9: 250.70, 443.81, ICD10: E11.51 - Control undetermined, due for labs - managed by diet. - HEMOGLOBIN A1C - ALBUMIN/CREATININE RATIO, URINE 4. Encounter for immunization - ICD9: V03.89, ICD10: Z23 - INFLUENZA VACCINE, PRSV FREE, AGE 65+ YR, HIGH DOSE, TRIVALENT (FLUZONE HIGH-DOSE) 5. Bilateral carotid artery stenosis - ICD9: 433.10, 433.30, ICD10: I65.23 Due for surveillance. - US CAROTID ARTERIES [facility] 6. Paroxysmal atrial fibrillation (HCC) - ICD9: 427.31, ICD10: I48.0 Has watchman. Follows with cardiology. 7. Gastroesophageal reflux disease without esophagitis - ICD9: 530.81, ICD10: K21.9 - controlled on PPI. 8. 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) - ICD9: 428.42, 428.0, ICD10: I50.42 Stable. Follows with CHF clinic. Discussed treatment plan and patient voices understanding. Patient's questions answered appropriately. Medications and potential side effects were discussed and patient voices understanding. Return to the office as scheduled or as needed for worsening/no improvement. Deysi Nicholson APRN.CNP CNOV Observed: 07/07/2024 8:00 AM Status: COMPLETED Source: [facility] BERTA SANCHES ([id number]) 1945 F [facility] Date Time Provider Department 07/07/24 8:00 AM DEYSI NICHOLSON During your visit today, we recorded the following information about you: Pulse Respiration Blood pressure Weight 69/minute 16/minute 136/70 63.5 kg Deysi Nicholson APRN.CNP 07/07/2024 12:41 PM Signed This is a 78 year old female who presents today with: Patient presents with: Establish Care HISTORY OF PRESENT ILLNESS: Berta Sanches is a 78 year old female. Patient presents with: Establish Care Pt presents today to [facility]. HTN: Patient is compliant with meds Yes. Was out of losartan a couple of days. Monitors bp at home: sometimes. Denies side effects: gets a lot of gas. Chest pain: wss getting some twinges and was concerned re: pacemaker placement -- had a remote check and placement was okay. Dyspnea: a little if she goes up and down stairs. Edema: No. Palpitations: No. Syncope: No. Headache: No. Dizziness: No. DM: Reports overall feeling well. Medication side effects: n/a. . Home sugar checks: very rarely. Hypoglycemic spells: No. Watching diet: Yes. Unexpected weight loss: No. Polyuria, polydipsia: No. Vision Changes: No.Last eye exam 04/26. Foot lesions or numbness or pain: No. HYPERLIPIDEMIA: Patient is taking medications: Yes. Patient is watching diet: Yes. Patient denies myalgias: Yes. Patient denies gi upset: Yes Gets intermittent leg pain -- mainly in the thighs. Not cramp. Is a little better when she wears her support stockings. A.Fib: Hx of watchman. Last remote study, per patient 16% a. Fib. CHF: Follows w/ heart failure clinic. GERD: Controlled w/ PPI. Chronic CHF PAST MEDICAL HISTORY: PAST MEDICAL HISTORY Diagnosis Date Abnormal colonoscopy 11/26/2016 08/15/15 colonoscopy for anemia hgb 10.8 with bx ileocecal valve with ischemic bowel disease with focal mucosal ulceration Abnormal CT of the abdomen 07/13/2015 diffuse calcification aorta without dilitation, wall thcikening right colon suspicious for mass (ileocecal ulcer on colonoscopy), diverticulosis right colon Abnormal CXR chronic bilateral interstitial markings, moderate cardiomegaly Atrial fibrillation (HCC) Pedro aneurysm of anterior communicating artery Dr. [facility] Bilateral carotid artery stenosis 11/26/2016 05/27/16 moderate 50-69% stenosis right and left Bilateral pneumonia 07/20/2015 Cancer of cervix (HCC) Cervical cancer (HCC) 1973 Chest pain 06/01/2015 negative work up with nuclar stress CHF (congestive heart failure) (HCC) Cholesteatoma of right ear surgical removal Chronic mastoiditis of left side Chronic renal failure, stage 3b (HCC) 04/15/2022 Diabetes (HCC) Diabetes (HCC) GERD (gastroesophageal reflux disease) H/O: GI bleed High blood pressure Hypercholesterolemia Mastoiditis of right side s/p mastoidectomy, complete opacitificationright tympanic cavity and mastoid cells on CT 06/01/16 Mitral valve regurgitation Pacemaker 10/21/[address] TRELL VERNON [id number] pulse generator, his bundle lead, right atrial lead Peripheral arterial disease (HCC) Rheumatic fever Steatosis, liver 03/26/2014 fatty liver on US. No gallstones Tachy-lionel syndrome (HCC) PAST SURGICAL HISTORY Procedure Laterality Date ABLATION 2018 for afib ANESTHESIA EXTERNAL MIDDLE AND INNER EAR W/BX NOS 2002, 2003,04/30/15 CARDIOVERSION 2018 EGD 02/28/2021 ESOPHAGOGASTRODUODENOSCOPY TRANSORAL DIAGNOSTIC 02/28/2021 LAP COLECTOMY, SIGMOID W/SUPERVISOR PLASTIC SHEETS 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 Lua PACEMAKER 10/2019 PART. HYSTERECTOMY W/WO RMVL OVARIES/TUBES 1973 h/o cervical cancer ovaries remain PAST SURGICAL HISTORY OF 1996 Aortic valve repair, Dr. Apodaca PAST SURGICAL HISTORY OF 2001 [address] Beltrán, [facility] PAST SURGICAL HISTORY OF 2015 clipping and coil for brain aneurysm ALLERGIES Protamine and Propofol MEDICATIONS Current Outpatient Medications Medication Sig potassium chloride (K-TAB) 10 mEq tablet Take 1 tablet by mouth once daily. furosemide (LASIX) 20 mg tablet Take 2 tablets by mouth once daily. TAKE AN EXTRA 20 MG in the afternoon if you note greater than 3 lbs weight gain in 24 hours simvastatin (ZOCOR) 20 mg tablet Take 1 tablet by mouth daily at bedtime. spironolactone (ALDACTONE) 25 mg tablet Take 0.5 tablets by mouth once daily. omeprazole (PRILOSEC) 40 mg capsule Take 1 capsule by mouth once daily. metoprolol succinate ER (TOPROL XL) 50 mg 24 hr tablet Take 1 tablet by mouth two times a day. losartan (COZAAR) 50 mg tablet Take 1 tablet by mouth once daily. Blood Pressure Monitor (BLOOD PRESSURE KIT) 1 Each once daily. aspirin 81 mg chewable tablet Take 1 tablet by mouth once daily. acetaminophen (TYLENOL) 500 mg tablet Take 1-2 tablets by mouth every 6 hours as needed. blood sugar diagnostic (BLOOD GLUCOSE TEST) test strip Test blood sugar(s) 2 times daily. Dx: Type 2 DM - Controlled E11.9 Insulin: No UBIDECARENONE (COQ-10 ORAL) Take 1 capsule by mouth once daily. No current facility-administered medications for this visit. FAMILY HISTORY Problem Relation Age of Onset other (Heart Problems) Mother other (myocardial infarction) Mother other (cardiovascular disease) Mother other (Heart Attack) Father other (cardiovascular disease) Father Diabetes Maternal Grandmother Social History Tobacco Use Smoking status: Former Current packs/day: 0.00 Average packs/day: 0.3 packs/day for 2.0 years (0.5 ttl pk-yrs) Types: Cigarettes Start date: 1965 Quit date: 1967 Years since quittin.0 Smokeless tobacco: Never Vaping Use Vaping status: Never Used Substance Use Topics Alcohol use: Not Currently Alcohol/week: 1.0 standard drink of alcohol Types: 1 Glasses of Wine (5oz) per week Comment: red wine 2-3 times a week- occasional Drug use: No EXAM: BP 136/70 Pulse 69 Resp 16 Wt 63.5 kg (140 lb) SpO2 94% BMI 25.61 kg/m? PHYSICAL EXAM: General Appearance: Well appearing, alert, in no acute distress, well-hydrated, well nourished.. Skin: Skin color, texture, turgor normal, no suspicious rashes or lesions. Head: Normocephalic, no masses, lesions, tenderness or abnormalities. Eyes: Anicteric sclera. Pupils are equally round and reactive to light. Extraocular movements are intact. . Ears: External ears normal, canals clear. Right canal with moderate cerumen successful irrigated by nursing. + scar tissues. Oropharynx: Lips, mucosa, and tongue normal, teeth and gums normal, oropharynx normal. Neck: Supple, no adenopathy; thyroid symmetric, normal size, no bruits. Lungs: Lungs clear to auscultation. No wheezing, rhonchi, rales.. Heart: RRR without murmur, gallop, or rubs. No ectopy. Abdomen: Abdomen soft, non-tender. Bowel sounds normal. No masses, organomegaly. Extremities: No deformities, edema, skin discoloration, clubbing or cyanosis. Good capillary refill. . Neurologic: Gait normal. ASSESSMENT/PLAN: 1. Primary hypertension - ICD9: 401.9, ICD10: I10 (primary diagnosis) - Controlled - Continue current medications - Recommend home blood pressure monitoring, to bring results to next visit - Encouraged sodium restriction, DASH or Mediterranean diet - Recommend regular aerobic exercise - METOPROLOL SUCCINATE ER 50 MG TABLET,EXTENDED RELEASE 24 HR - LOSARTAN 50 MG TABLET - BASIC METABOLIC PANEL 2. Pain in both lower extremities - ICD9: 729.5, ICD10: M79.604, M79.605 Stay well hydrated. Can continue compression. - THYROID STIMULATING HORMONE - VITAMIN D 25 HYDROXY 3. Type 2 diabetes mellitus with diabetic peripheral angiopathy without gangrene, without long-term current use of insulin (HCC) - ICD9: 250.70, 443.81, ICD10: E11.51 - Control undetermined, due for labs - managed by diet. - HEMOGLOBIN A1C - ALBUMIN/CREATININE RATIO, URINE 4. Encounter for immunization - ICD9: V03.89, ICD10: Z23 - INFLUENZA VACCINE, PRSV FREE, AGE 65+ YR, HIGH DOSE, TRIVALENT (FLUZONE HIGH-DOSE) 5. Bilateral carotid artery stenosis - ICD9: 433.10, 433.30, ICD10: I65.23 Due for surveillance. - US CAROTID ARTERIES [facility] 6. Paroxysmal atrial fibrillation (HCC) - ICD9: 427.31, ICD10: I48.0 Has watchman. Follows with cardiology. 7. Gastroesophageal reflux disease without esophagitis - ICD9: 530.81, ICD10: K21.9 - controlled on PPI. 8. 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) - ICD9: 428.42, 428.0, ICD10: I50.42 Stable. Follows with CHF clinic. Discussed treatment plan and patient voices understanding. Patient's questions answered appropriately. Medications and potential side effects were discussed and patient voices understanding. Return to the office as scheduled or as needed for worsening/no improvement. Deysi Nicholson APRN.Abdi Clifton LPN 07/07/2024 12:41 PM Signed Ambulatory Ear Lavage Pre-treatment: No pre-treatment Treatment: Right ear Equipment and Irrigation solution and Volume used: Single use syringe with single use irrigation tip Water Total Irrigation Volume: 500cc Return flow appearance: Debris Patient tolerated procedure: yes Tympanic membrane assessment: Tympanic membrane assessed by LIP pre and post procedure Allergies As of Date: 07/07/2024 Noted Allergy Reaction PROTAMINE 01/12/2022 10 - Anaphylaxis Comments: Had acute drop in blood pressure and end tidal Co2 shortly after administration during watchman procedure on 01/12/22, treated with 60 mcg epinephrine and 10 mg dexamethasone with good response. PROPOFOL 04/07/2023 14 - Other: See Comments Comments: Hypotension Date Reviewed: 07/07/2024 Reviewed by: Abdi Rivera LPN - Fully Assessed Reason for Visit: Establish Care [42] Primary Visit Diagnosis:Primary hypertension [I10] Other Visit Diagnoses:Pain in both lower extremities [M79.604, M79.605] Type 2 diabetes mellitus with diabetic peripheral angiopathy without gangrene, without long-term current use of insulin (HCC) [E11.51] Encounter for immunization [Z23] Bilateral carotid artery stenosis [I65.23] Paroxysmal atrial fibrillation (HCC) [I48.0] Gastroesophageal reflux disease without esophagitis [K21.9] 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) [I50.42] Order(s):metoprolol succinate ER (TOPROL XL) 50 mg 24 hr tabletTake 1 tablet by mouth two times a day.Disp: 180 tabletRfl: 3 losartan (COZAAR) 50 mg tabletTake 1 tablet by mouth once daily.Disp: 90 tabletRfl: 3 HEMOGLOBIN A1C [FPSGP3L] Order #: [id number] FUTURE BASIC METABOLIC PANEL [SQBMP] Order #: [id number] FUTURE potassium chloride (K-TAB) 10 mEq tabletTake 1 tablet by mouth once daily.Disp: 30 tabletRfl: 3 THYROID STIMULATING HORMONE [SQTSH] Order #: [id number] FUTURE VITAMIN D 25 HYDROXY [SQVITD] Order #: [id number] FUTURE ALBUMIN/CREATININE RATIO, URINE [SQUACR] Order #: [id number] FUTURE INFLUENZA VACCINE, PRSV FREE, AGE 65+ YR, HIGH DOSE, TRIVALENT (FLUZONE HIGH-DOSE) [[id number]] Order #: [id number] CAROTID ARTERIES [facility] [[id number]] Order #: [id number] FUTURE Prescriptions as of 07/07/2024 - metoprolol succinate ER (TOPROL XL) 50 mg 24 hr tablet Take 1 tablet by mouth two times a day. - losartan (COZAAR) 50 mg tablet Take 1 tablet by mouth once daily. - potassium chloride (K-TAB) 10 mEq tablet Take 1 tablet by mouth once daily. - furosemide (LASIX) 20 mg tablet Take 2 tablets by mouth once daily. TAKE AN EXTRA 20 MG in the afternoon if you note greater than 3 lbs weight gain in 24 hours - simvastatin (ZOCOR) 20 mg tablet Take 1 tablet by mouth daily at bedtime. - spironolactone (ALDACTONE) 25 mg tablet Take 0.5 tablets by mouth once daily. - omeprazole (PRILOSEC) 40 mg capsule Take 1 capsule by mouth once daily. - Blood Pressure Monitor (BLOOD PRESSURE KIT) 1 Each once daily. - aspirin 81 mg chewable tablet Take 1 tablet by mouth once daily. - acetaminophen (TYLENOL) 500 mg tablet Take 1-2 tablets by mouth every 6 hours as needed. - blood sugar diagnostic (BLOOD GLUCOSE TEST) test strip Test blood sugar(s) 2 times daily. Dx: Type 2 DM - Controlled E11.9 Insulin: No - UBIDECARENONE (COQ-10 ORAL) Take 1 capsule by mouth once daily. Problem List As Of Date 07/07/2024 Noted Resolved History of prosthetic aortic valve replacement *10/10/2013 Aortic prosthetic valve regurgitation [T82.897A]10/10/2013 Paroxysmal atrial fibrillation (HCC) [I48.0] 10/10/2013 04/11/2023 HTN (hypertension) [I10] 10/10/2013 Hyperlipidemia with target LDL less than 70 [E7*11/20/2013 Type 2 diabetes mellitus without complication, *11/20/2013 09/12/2021 GERD (gastroesophageal reflux disease) [K21.9] 11/20/2013 Chronic anticoagulation [Z79.01] 11/20/2013 Fatigue [R53.83] 11/20/2013 SOB (shortness of breath) [R06.02] 11/20/2013 11/12/2023 H/O rheumatic heart disease [Z86.79] 11/20/2013 SUMMARY [V999.95] 12/09/2013 12/22/2018 Carotid artery disease (HCC) [I77.9] 12/09/2013 09/12/2021 Routine health maintenance [Z00.00] 01/08/2014 09/12/2021 Basal cell carcinoma [C44.91] 01/08/2014 Left shoulder pain [M25.512] 02/26/2014 Abdominal pain [R10.9] 02/26/2014 03/21/2022 Intracranial aneurysm [I67.1] 08/30/2015 10/05/2022 prison current use of antiarrhythmic medical*10/20/2016 09/12/2021 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] 11/19/2016 12/22/2018 Bilateral carotid artery stenosis [I65.23] 11/26/2016 Osteopenia of left lower leg [M85.862] 11/26/2016 Mastoiditis of right side [H70.91] 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] Personal history of colonic polyps [Z86.0100] 01/06/2017 Aortic stenosis [I35.0] 01/06/2017 12/22/2018 History of ischemic colitis [Z87.19] 01/06/2017 Adenomatous polyp of descending colon [D12.4] 01/06/2017 Skin cancer [C44.90] 01/06/2017 PAD (peripheral artery disease) (HCC) [I73.9] 01/06/2017 Pedro aneurysm of anterior communicating artery* Stage 3 chronic renal impairment associated wit*03/11/2017 Other chest pain [R07.89] 03/27/2019 09/19/2020 History of pulmonary embolism [Z86.711] 03/27/2019 Ascending aorta dilatation (HCC) [I77.810] 03/27/2019 Chronic bilateral pleural effusions [J90] 03/27/2019 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] 06/15/2019 Right renal mass [N28.89] 06/16/2019 Diverticulitis of large intestine with perforat*06/16/2019 09/12/2021 Diverticulitis large intestine w/o perforation *07/18/2019 Renal cell carcinoma, right (HCC) [C64.1] 10/17/2019 Iron deficiency anemia [D50.9] 10/24/2019 Anemia due to GI blood loss [D50.0] 10/24/2019 03/22/2022 Renal cell carcinoma (HCC) [C64.9] 10/24/2019 09/12/2021 Hypomagnesemia [E83.42] 10/26/2019 Gastrointestinal hemorrhage associated with acu*02/15/2020 Esophageal stenosis [K22.2] 10/28/2019 Dilated cardiomyopathy (HCC) [I42.0] 03/22/2020 Acute on chronic combined systolic and diastoli*09/19/2020 11/12/2023 SSS (sick sinus syndrome) (HCC) [I49.5] 10/21/2020 Encounter for support and coordination of trans*02/15/2021 09/12/2021 Duodenal ulcer [K26.9] 05/20/2021 Type 2 diabetes mellitus with diabetic peripher*09/12/2021 Atrial fibrillation (HCC) [I48.91] 01/12/2022 04/11/2023 Melena [K92.1] 02/22/2022 02/24/2022 Acute kidney injury (HCC) [N17.9] 02/22/2022 02/24/2022 Acute on chronic systolic heart failure (HCC) [*03/19/2022 03/22/2022 Longstanding persistent atrial fibrillation (HC*03/20/2022 S/P placement of cardiac pacemaker [Z95.0] 03/20/2022 CKD (chronic kidney disease) [N18.9] 03/21/2022 Platelet inhibition due to Plavix [Z79.02] 03/21/2022 Diverticulosis [K57.90] 03/21/2022 Lung nodule, solitary [R91.1] 03/22/2022 Red blood cell antibody positive [R76.8] 03/23/2022 Iron 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 *04/07/2022 Iron malabsorption [K90.9] 04/07/2022 Chronic renal failure, stage 3b (HCC) [N18.32] 04/15/2022 Spondylolisthesis at L4-L5 level [M43.16] 07/07/2022 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 Chronic diastolic (congestive) heart failure (H*11/09/2023 Prescriptions ordered this encounter Disp Refills Start End METOPROLOL SUCCINATE ER 50 MG TABLET* 180 * 3 07/07/2024 Route: ORAL Sig: Take 1 tablet by mouth two times a day. LOSARTAN 50 MG TABLET 90 t* 3 07/07/2024 Route: ORAL Sig: Take 1 tablet by mouth once daily. POTASSIUM CHLORIDE ER 10 MEQ TABLET,* 30 t* 3 07/07/2024 Route: ORAL Sig: Take 1 tablet by mouth once daily. Medications Discontinued During This Encounter Prescriptions - metoprolol succinate ER (TOPROL XL) 50 mg 24 hr tablet (Discontinued) Take 1 tablet by mouth two times a day. - losartan (COZAAR) 50 mg tablet (Discontinued) Take 1 tablet by mouth once daily. - potassium chloride (K-TAB) 10 mEq tablet (Discontinued) Take 1 tablet by mouth once daily. Level of Service: OFFICE/OUTPATIENT ESTABLISHED [facility] 30 MIN [44675] Additional E/M codes: VISIT CPLX INHERENT EANDM ASSOC WITH MED * Encounter Status:Closed by DEYSI NICHOLSON on 07/07/24 RENAY Observed: 04/07/2024 9:00 AM Status: COMPLETED Source: [facility] BERTA SANCHES ([id number]) 1945 F [place] Date Time Provider Department 04/07/24 9:00 AM ALBIN GU [facility] During your visit today, we recorded the following information about you: Pulse Blood pressure Weight 91/minute 142/47 62.1 kg Albin Gu APRN.MINCEMEAT MAKER 04/07/2024 9:57 AM Signed [facility] OUTPATIENT VISIT DATE April 07, 2024 OUTPATIENT VISIT TYPE ESTABLISHED PRIMARY CARE PHYSICIAN: oDreen Le PA-C CHIEF COMPLAINT: Patient presents with: Breathing Problem Leg Edema HISTORY OF PRESENT ILLNESS: Berta Sanches is a 78 year old female who presents today for a follow-up visit in the Heart Failure Clinic. The patient was last seen in office 11/24. The following changes were made at that time: decrease lasix to 40 mg once a day and added spironolactone. Follows with Dr. Arriaga and was last seen in January. Past medical history is significant for hypertension, hyperlipidemia, valvular heart disease s/p aortic valve replacement, history of brain aneurysm s/p coiling, SSS s/p pacemaker 10/2020, A-fib, s/p Watchman 2021, history of rectal bleeding, diabetes mellitus. The patient has had 1 hospital admissions in the past 12 months. The last admission was from 11/08 to 11/11 for management of heart failure. She was treated with IV lasix and metolazone. Discharged on lasix 20 mg once a day. Instructed to take additional 20 mg lasix for increase in weight. Admission weight: 160 lbs Discharge weight: 141 lbs (pt patient this was taken on home scale day of discharge) Today, the patient reports feeling well. Presents to appt with . Weighs daily. Weight today was 137 lbs. She states she usually is 135 lbs. Reports shortness of breath with physical activity or with walking long distances. Denies chest pain, fever, chills, dizziness, lightheadedness, leg swelling. Monitors blood pressure at home. Unsure of blood pressure readings. She states her watch will tell her when she is in atrial fibrillation as well. Denies recent episodes of atrial fibrillation. Compliant with her medications. She states she has been taking 40 mg lasix as instructed. On rare occasion she will take an additional lasix but states she cannot recall the last time she took additional. She has been tolerating her spironolactone well. Does not add salt. Very strict with low sodium diet. Her and her stay active with walking. They have a boat and take it out on [address] [place] to fish. IMPRESSION: NYHA Functional Class: II Stage: C heart failure Berta Sanches is a 78 year-old female who presents to the Heart Failure Clinic for follow up. Appears minimally hypervolemic on examination. Will have her take additional 20 mg lasix 6 hours from morning dose. She is to record blood pressure and heart rate for 1 week and call office to review. Heart rate appears higher than in the past however, she did just take her morning medications prior to her appt. Reviewed low sodium diet and fluid restriction. Wear compression stockings when sitting for long periods of time. Did review most recent echos as patient had questions about valve. Discussed repeating echo by end of year with cardiology. Reviewed all medications and side effects. Reviewed plan of care with patient and . All questions answered at this time. PLAN AND RECOMMENDATIONS: 1. Chronic diastolic congestive heart failure (HCC) - ICD9: 428.32, 428.0, ICD10: I50.32 (primary diagnosis) - daily weights, call office if weight increases 3-4 lbs in a 1-4 day period -2 gm low sodium diet -activity as tolerated, rest breaks as needed -GDMT: lasix, metoprolol, losartan, spironolactone -follow up in HF Clinic in October 12 or sooner if needed 2. Primary hypertension - ICD9: 401.9, ICD10: I10 -BP suboptimal during visit 146/47 mmHg -encourage DASH/low sodium diet -encourage exercise with rest breaks as needed -goal BP <130/80 mmHg -continue home BP monitoring 3-4 hours after morning meds 3. SSS (sick sinus syndrome) (HCC) - ICD9: 427.81, ICD10: I49.5 -s/p PPM 4. Longstanding persistent atrial fibrillation (HCC) - ICD9: 427.31, ICD10: I48.11 -CHADSVASc 5 (age, gender, HF, HTN)- s/p watchman -continue metoprolol for rate control -HR 60 bpm during office visit Follow up appointment with Cardiology to be scheduled. PAST MEDICAL HISTORY Diagnosis Date Abnormal colonoscopy 11/26/2016 08/15/15 colonoscopy for anemia hgb 10.8 with bx ileocecal valve with ischemic bowel disease with focal mucosal ulceration Abnormal CT of the abdomen 07/13/2015 diffuse calcification aorta without dilitation, wall thcikening right colon suspicious for mass (ileocecal ulcer on colonoscopy), diverticulosis right colon Abnormal CXR chronic bilateral interstitial markings, moderate cardiomegaly Atrial fibrillation (HCC) Pedro aneurysm of anterior communicating artery Dr. Aaron [facility] Bilateral carotid artery stenosis 11/26/2016 05/27/16 moderate 50-69% stenosis right and left Bilateral pneumonia 07/20/2015 Cancer of cervix (HCC) Cervical cancer (HCC) 1973 Chest pain 06/01/2015 negative work up with nuclar stress CHF (congestive heart failure) (HCC) Cholesteatoma of right ear surgical removal Chronic mastoiditis of left side Chronic renal failure, stage 3b (HCC) 04/15/2022 Diabetes (HCC) Diabetes (HCC) GERD (gastroesophageal reflux disease) H/O: GI bleed High blood pressure Hypercholesterolemia Mastoiditis of right side s/p mastoidectomy, complete opacitificationright tympanic cavity and mastoid cells on CT 06/01/16 Mitral valve regurgitation Pacemaker 10/21/[address] TRELL VERNON [id number] pulse generator, his bundle lead, right atrial lead Peripheral arterial disease (HCC) Rheumatic fever Steatosis, liver 03/26/2014 fatty liver on US. 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 Lua PACEMAKER 10/2019 PART. HYSTERECTOMY W/WO RMVL OVARIES/TUBES 1974 h/o cervical cancer ovaries remain PAST SURGICAL HISTORY OF 1996 Aortic valve repair, Dr. Apodaca PAST SURGICAL HISTORY OF 2001 [address] Beltrán, [facility] PAST SURGICAL HISTORY OF 2016 clipping and coil for brain aneurysm Social History Tobacco Use Smoking status: Former Current packs/day: 0.00 Average packs/day: 0.3 packs/day for 2.0 years (0.5 ttl pk-yrs) Types: Cigarettes Start date: 1965 Quit date: 1968 Years since quittin.7 Smokeless tobacco: Never Vaping Use Vaping status: Never Used Substance Use Topics Alcohol use: Not Currently Alcohol/week: 1.0 standard drink of alcohol Types: 1 Glasses of Wine (5oz) per week Comment: red wine 2-3 times a week- occasional Drug use: No Family History Problem Relation Age of Onset other (Heart Problems) Mother other (myocardial infarction) Mother other (cardiovascular disease) Mother other (Heart Attack) Father other (cardiovascular disease) Father Diabetes Maternal Grandmother ALLERGIES Allergen Reactions Protamine Anaphylaxis Had acute drop in blood pressure and end tidal Co2 shortly after administration during watchman procedure on 01/12/22, treated with 60 mcg epinephrine and 10 mg dexamethasone with good response. Propofol Other: See Comments Hypotension CURRENT MEDICATIONS: Current Outpatient Medications Medication Sig Dispense Refill potassium chloride (K-TAB) 10 mEq tablet Take 1 tablet by mouth once daily. 30 tablet 3 furosemide (LASIX) 20 mg tablet Take 2 tablets by mouth once daily. TAKE AN EXTRA 20 MG in the afternoon if you note greater than 3 lbs weight gain in 24 hours 270 tablet 3 simvastatin (ZOCOR) 20 mg tablet Take 1 tablet by mouth daily at bedtime. 90 tablet 3 spironolactone (ALDACTONE) 25 mg tablet Take 0.5 tablets by mouth once daily. 45 tablet 3 omeprazole (PRILOSEC) 40 mg capsule Take 1 capsule by mouth once daily. 90 capsule 1 metoprolol succinate ER (TOPROL XL) 50 mg 24 hr tablet Take 1 tablet by mouth two times a day. 180 tablet 3 losartan (COZAAR) 50 mg tablet Take 1 tablet by mouth once daily. 90 tablet 3 Blood Pressure Monitor (BLOOD PRESSURE KIT) 1 Each once daily. 1 Each 0 aspirin 81 mg chewable tablet Take 1 tablet by mouth once daily. 30 tablet 11 acetaminophen (TYLENOL) 500 mg tablet Take 1-2 tablets by mouth every 6 hours as needed. blood sugar diagnostic (BLOOD GLUCOSE TEST) test strip Test blood sugar(s) 2 times daily. Dx: Type 2 DM - Controlled E11.9 Insulin: No 50 Strip 11 UBIDECARENONE (COQ-10 ORAL) Take 1 capsule by mouth once daily. No current facility-administered medications for this visit. REVIEW OF SYSTEMS: GENERAL: Negative for: Weight loss or gain, Fever or Chills, Weakness and Sleep difficulties. HEENT: Positive for:Glasses NECK: Negative for: Swelling, Pain, Stiffness RESPIRATORY: Positive for: Shortness of breath GASTROINTESTINAL: Negative for: Trouble swallowing, Heartburn, Change in bowel habits, Blood in stool, Dark black stools MUSCULOSKELETAL: Negtive for: Muscle or joint pain, stiffness, Joint swelling NEUROLOGIC/PSYCHIATRIC: Negative for: Weakness, Paralysis, Numbness, Tingling, Tremor, Nervousness or anxiety, Depressed mood, Memory loss SKIN: Negative for: Rash, Itching HEMATOLOGICAL/LYMPHATIC: Positive for: Easy bruising and Easy bleeding ENDOCRINE: Negative for: Heat or Cold Intolerance, Excessive Sweating, Frequent Urination, Frequent Thirst PHYSICAL EXAMINATION: BP (!) 142/47 Pulse 91 Wt 62.1 kg (137 lb) SpO2 98% BMI 25.06 kg/m? General: Normal exam, no distress, accompanied by family Skin: No clubbing, no cyanosis. Eyes: Extra ocular movements intact Neck: Neck veins are not distended Lungs: Chest clear to auscultation Heart: Rhythm: regular rate and rhythm, Rate: normal, no murmur Abdomen: Normal Extremities: trace edema to BLLE Peripheral Pulses: Normal CARDIOVASCULAR MEDICINE TESTING: Echocardiogram 11/10/2023: - The left ventricle is mildly dilated. Left ventricular systolic function is normal. EF = 58 ? 5% (2D biplane) Left ventricular diastolic function was not evaluated due to AF. - The right ventricle is dilated. Right ventricular systolic function is mildly decreased. - The left atrial cavity is moderately dilated. - The right atrial cavity is dilated. - There is mild to moderate (1-2+) mitral regurgitation. - There is moderate (2+) tricuspid valve regurgitation. - [employer]ife Homograft prosthetic aortic valve (size #28). There is moderate (2+ - 3+) aortic valve regurgitation. - There is moderate (2+) pulmonic valve regurgitation. - Estimated right ventricular systolic pressure is 73 mmHg consistent with moderately severe pulmonary hypertension. Estimated right atrial pressure is 15 mmHg based on IVC assessment. - Exam was compared with the prior echocardiographic exam performed on 10/28/23. The patient is now in atrial fibrillation. LV function has slightly improved. Echocardiogram 10/28/2023: - The left ventricle is mildly dilated. There is mild concentric left ventricular hypertrophy. Left ventricular systolic function is mildly decreased. EF = 51 ? 5% (2D 4-ch.) Indeterminate left ventricular diastolic dysfunction. - The right ventricle is dilated. Right ventricular systolic function is mildly decreased. - The left atrial cavity is severely dilated. - The right atrial cavity is dilated. - The visualized aorta is dilated with a maximal dimension of 4.6 cm. - There is moderate (2+) holosystolic mitral valve regurgitation. - There is moderately severe (3+) tricuspid valve regurgitation. - [employer]ife Homograft prosthetic aortic valve (size #28). There is moderate (2+) aortic valve regurgitation. The peak gradient is 25 mmHg, the mean gradient is 12 mmHg and the dimensionless valve index is 0.34. Prior pk/mn gradients were 29/14 mmHg. - Estimated right ventricular systolic pressure is 75 mmHg consistent with moderately severe pulmonary hypertension. Estimated right atrial pressure is 3 mmHg (although IVC not seen). - Exam was compared with the prior echocardiographic exam performed on 03/05/2023. There is now evidence of moderately severe tricuspid insufficiency. RVSP estimate has increased also. DEVICE CHECK 01/2024: Title: Normal Remote: With Events * Normal Device Function * Events or Alerts: AF episodes and 1 NSVT * Battery: OK, 10.92 yrs * Sensing, impedance and thresholds reviewed * Programmed parameters reviewed * Presenting rhythm reviewed: AP/VS * Heart Rate Histograms reviewed AP 45%, HOUSING COORDINATOR 10.4% Title: Tachycardia: AF * Stored EGMs are consistent with or suggestive of Atrial Fibrillation * AT/AF Speed: 38.7% * Total number of events: 4,598 Title: Non-sustained Ventricular Tachycardia * Stored EGMs are consistent with or suggestive of Non-sustained VT * Total episodes: 1 Latest Reference Range AND Units 02/03/24 10:02 Sodium 136 - 144 mmol/L 131 (L) Potassium 3.7 - 5.1 mmol/L 4.8 Chloride 98 - 107 mmol/L 98 CO2 22 - 30 mmol/L 22 BUN 7 - 21 mg/dL 34 (H) Creatinine 0.58 - 0.96 mg/dL 1.28 (H) Glucose 74 - 99 mg/dL 147 (H) Protein, Total 6.3 - 8.0 g/dL 7.2 Calcium 8.5 - 10.2 mg/dL 9.5 Phosphorus 2.7 - 4.8 mg/dL 3.3 Albumin 3.9 - 4.9 g/dL 4.0 Bilirubin, Total 0.2 - 1.3 mg/dL 1.1 Alkaline Phosphatase 34 - 123 U/L 102 ALT 7 - 38 U/L 10 AST 13 - 35 U/L 16 Anion Gap 8 - 15 mmol/L 11 NT Pro BNP <450 pg/mL 8,577 (H) eGFR >=60 mL/min/1.73m? 43 (L) (L): Data is abnormally low (H): Data is abnormally high I have personally reviewed the Laboratory Testing and Echocardiogram. COUNSELING: We discussed the following non-pharmacological measures during this visit: Smoking and alcohol abstinence/cessation, if applicable Dietary and medication compliance Monitoring daily weights and blood pressures Exercise regimen When to call our office Heart Failure Education Booklet: Previously given. Discussed red flags and when to call MD/ATTENDANT ARCADE or go to ED. Medications reconciled at end of visit: yes I spent 30 minutes in this visit, with more than 50% of the time devoted to patient counseling. SIGNATURE: Albin Gu APRN.CNP PATIENT NAME: Berta Sanches DATE: April 07, 2024 TIME: 904 Albin Gu APRN.CNP 04/07/2024 9:38 AM Addendum Continue current medications as prescribed. You can take additional 20 mg lasix today at least 6 hours from morning dose due to leg swelling. Please record heart rate and blood pressure 3-4 hours after taking morning medication. Call office next to report blood pressure and heart rate. 2. Weigh yourself daily. Call me if your weight increases by 3-4 pounds in a 1-4 day period of time. 3. Continue low salt (2000 mg per day) diet. 4. Be as active as you are able. If you get tired, just stop and rest for a while. 5. Come back and see me on October 12 at 0900. If you have any question or concern, you can call me at [phone]. Allergies As of Date: 04/07/2024 Noted Allergy Reaction PROTAMINE 01/12/2022 10 - Anaphylaxis Comments: Had acute drop in blood pressure and end tidal Co2 shortly after administration during watchman procedure on 01/12/22, treated with 60 mcg epinephrine and 10 mg dexamethasone with good response. PROPOFOL 04/07/2023 14 - Other: See Comments Comments: Hypotension Date Reviewed: 04/07/2024 Reviewed by: Albin Gu APRN.MINCEMEAT MAKER - Fully Assessed Reason for Visit: Breathing Problem [17] Leg Edema [769] Primary Visit Diagnosis:Chronic diastolic congestive heart failure (HCC) [I50.32] Other Visit Diagnoses:Primary hypertension [I10] SSS (sick sinus syndrome) (HCC) [I49.5] Longstanding persistent atrial fibrillation (HCC) [I48.11] Prescriptions as of 04/07/2024 - potassium chloride (K-TAB) 10 mEq tablet Take 1 tablet by mouth once daily. - furosemide (LASIX) 20 mg tablet Take 2 tablets by mouth once daily. TAKE AN EXTRA 20 MG in the afternoon if you note greater than 3 lbs weight gain in 24 hours - simvastatin (ZOCOR) 20 mg tablet Take 1 tablet by mouth daily at bedtime. - spironolactone (ALDACTONE) 25 mg tablet Take 0.5 tablets by mouth once daily. - omeprazole (PRILOSEC) 40 mg capsule Take 1 capsule by mouth once daily. - metoprolol succinate ER (TOPROL XL) 50 mg 24 hr tablet Take 1 tablet by mouth two times a day. - losartan (COZAAR) 50 mg tablet Take 1 tablet by mouth once daily. - Blood Pressure Monitor (BLOOD PRESSURE KIT) 1 Each once daily. - aspirin 81 mg chewable tablet Take 1 tablet by mouth once daily. - acetaminophen (TYLENOL) 500 mg tablet Take 1-2 tablets by mouth every 6 hours as needed. - blood sugar diagnostic (BLOOD GLUCOSE TEST) test strip Test blood sugar(s) 2 times daily. Dx: Type 2 DM - Controlled E11.9 Insulin: No - UBIDECARENONE (COQ-10 ORAL) Take 1 capsule by mouth once daily. Problem List As Of Date 04/07/2024 Noted Resolved History of prosthetic aortic valve replacement *10/10/2013 Aortic prosthetic valve regurgitation [T82.897A]10/10/2013 Paroxysmal atrial fibrillation (HCC) [I48.0] 10/10/2013 04/11/2023 HTN (hypertension) [I10] 10/10/2013 Hyperlipidemia with target LDL less than 70 [E7*11/20/2013 Type 2 diabetes mellitus without complication, *11/20/2013 09/12/2021 GERD (gastroesophageal reflux disease) [K21.9] 11/20/2013 Chronic anticoagulation [Z79.01] 11/20/2013 Fatigue [R53.83] 11/20/2013 SOB (shortness of breath) [R06.02] 11/20/2013 11/12/2023 H/O rheumatic heart disease [Z86.79] 11/20/2013 SUMMARY [V999.95] 12/09/2013 12/22/2018 Carotid artery disease (HCC) [I77.9] 12/09/2013 09/12/2021 Routine health maintenance [Z00.00] 01/08/2014 09/12/2021 Basal cell carcinoma [C44.91] 01/08/2014 Left shoulder pain [M25.512] 02/26/2014 Abdominal pain [R10.9] 02/26/2014 03/21/2022 Intracranial aneurysm [I67.1] 08/30/2015 10/05/2022 prison current use of antiarrhythmic medical*10/20/2016 09/12/2021 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] 11/19/2016 12/22/2018 Bilateral carotid artery stenosis [I65.23] 11/26/2016 Osteopenia of left lower leg [M85.862] 11/26/2016 Mastoiditis of right side [H70.91] 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] Personal history of colonic polyps [Z86.0100] 01/06/2017 Aortic stenosis [I35.0] 01/06/2017 12/22/2018 History of ischemic colitis [Z87.19] 01/06/2017 Adenomatous polyp of descending colon [D12.4] 01/06/2017 Skin cancer [C44.90] 01/06/2017 PAD (peripheral artery disease) (HCC) [I73.9] 01/06/2017 Pedro aneurysm of anterior communicating artery* Stage 3 chronic renal impairment associated wit*03/11/2017 Other chest pain [R07.89] 03/27/2019 09/19/2020 History of pulmonary embolism [Z86.711] 03/27/2019 Ascending aorta dilatation (HCC) [I77.810] 03/27/2019 Chronic bilateral pleural effusions [J90] 03/27/2019 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] 06/15/2019 Right renal mass [N28.89] 06/16/2019 Diverticulitis of large intestine with perforat*06/16/2019 09/12/2021 Diverticulitis large intestine w/o perforation *07/18/2019 Renal cell carcinoma, right (HCC) [C64.1] 10/17/2019 Iron deficiency anemia [D50.9] 10/24/2019 Anemia due to GI blood loss [D50.0] 10/24/2019 03/22/2022 Renal cell carcinoma (HCC) [C64.9] 10/24/2019 09/12/2021 Hypomagnesemia [E83.42] 10/26/2019 Gastrointestinal hemorrhage associated with acu*02/15/2020 Esophageal stenosis [K22.2] 10/28/2019 Dilated cardiomyopathy (HCC) [I42.0] 03/22/2020 Acute on chronic combined systolic and diastoli*09/19/2020 11/12/2023 SSS (sick sinus syndrome) (HCC) [I49.5] 10/21/2020 Encounter for support and coordination of trans*02/15/2021 09/12/2021 Duodenal ulcer [K26.9] 05/20/2021 Type 2 diabetes mellitus with diabetic peripher*09/12/2021 Atrial fibrillation (HCC) [I48.91] 01/12/2022 04/11/2023 Melena [K92.1] 02/22/2022 02/24/2022 Acute kidney injury (HCC) [N17.9] 02/22/2022 02/24/2022 Acute on chronic systolic heart failure (HCC) [*03/19/2022 03/22/2022 Longstanding persistent atrial fibrillation (HC*03/20/2022 S/P placement of cardiac pacemaker [Z95.0] 03/20/2022 CKD (chronic kidney disease) [N18.9] 03/21/2022 Platelet inhibition due to Plavix [Z79.02] 03/21/2022 Diverticulosis [K57.90] 03/21/2022 Lung nodule, solitary [R91.1] 03/22/2022 Red blood cell antibody positive [R76.8] 03/23/2022 Iron 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 *04/07/2022 Iron malabsorption [K90.9] 04/07/2022 Chronic renal failure, stage 3b (HCC) [N18.32] 04/15/2022 Spondylolisthesis at L4-L5 level [M43.16] 07/07/2022 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 Chronic diastolic (congestive) heart failure (H*11/09/2023 Other instructions from your clinician: Continue current medications as prescribed. You can take additional 20 mg lasix today at least 6 hours from morning dose due to leg swelling. Please record heart rate and blood pressure 3-4 hours after taking morning medication. Call office next to report blood pressure and heart rate. 2. Weigh yourself daily. Call me if your weight increases by 3-4 pounds in a 1-4 day period of time. 3. Continue low salt (2000 mg per day) diet. 4. Be as active as you are able. If you get tired, just stop and rest for a while. 5. Come back and see me on October 12 at 0900. If you have any question or concern, you can call me at [phone]. Encounter Status:Closed by ALBIN GU on 04/07/24 PROGRESS Observed: 04/07/2024 9:00 AM Status: COMPLETED Source: [facility] HNO ID: [id number] Author: ALBIN GU APRN.MINCEMEAT MAKER Service: ? Author Type: Nurse Practitioner Type: Progress Notes Filed: 04/07/2024 09:57 Note Text: [facility] Heart Failure Clinic OUTPATIENT VISIT DATE April 07, 2024 OUTPATIENT VISIT TYPE ESTABLISHED PRIMARY CARE PHYSICIAN: Doreen Le PA-C CHIEF COMPLAINT: Patient presents with: Breathing Problem Leg Edema HISTORY OF PRESENT ILLNESS: Berta Sanches is a 78 year old female who presents today for a follow-up visit in the Heart Failure Clinic. The patient was last seen in office 11/24. The following changes were made at that time: decrease lasix to 40 mg once a day and added spironolactone. Follows with Dr. Arriaga and was last seen in January. Past medical history is significant for hypertension, hyperlipidemia, valvular heart disease s/p aortic valve replacement, history of brain aneurysm s/p coiling, SSS s/p pacemaker 10/2020, A-fib, s/p Watchman 2021, history of rectal bleeding, diabetes mellitus. The patient has had 1 hospital admissions in the past 12 months. The last admission was from 11/08 to 11/11 for management of heart failure. She was treated with IV lasix and metolazone. Discharged on lasix 20 mg once a day. Instructed to take additional 20 mg lasix for increase in weight. Admission weight: 160 lbs Discharge weight: 141 lbs (pt patient this was taken on home scale day of discharge) Today, the patient reports feeling well. Presents to appt with . Weighs daily. Weight today was 137 lbs. She states she usually is 135 lbs. Reports shortness of breath with physical activity or with walking long distances. Denies chest pain, fever, chills, dizziness, lightheadedness, leg swelling. Monitors blood pressure at home. Unsure of blood pressure readings. She states her watch will tell her when she is in atrial fibrillation as well. Denies recent episodes of atrial fibrillation. Compliant with her medications. She states she has been taking 40 mg lasix as instructed. On rare occasion she will take an additional lasix but states she cannot recall the last time she took additional. She has been tolerating her spironolactone well. Does not add salt. Very strict with low sodium diet. Her and her stay active with walking. They have a boat and take it out on [place] to fish. IMPRESSION: NYHA Functional Class: II Stage: C heart failure Berta Sanches is a 78 year-old female who presents to the Heart Failure Clinic for follow up. Appears minimally hypervolemic on examination. Will have her take additional 20 mg lasix 6 hours from morning dose. She is to record blood pressure and heart rate for 1 week and call office to review. Heart rate appears higher than in the past however, she did just take her morning medications prior to her appt. Reviewed low sodium diet and fluid restriction. Wear compression stockings when sitting for long periods of time. Did review most recent echos as patient had questions about valve. Discussed repeating echo by end of year with cardiology. Reviewed all medications and side effects. Reviewed plan of care with patient and . All questions answered at this time. PLAN AND RECOMMENDATIONS: 1. Chronic diastolic congestive heart failure (HCC) - ICD9: 428.32, 428.0, ICD10: I50.32 (primary diagnosis) - daily weights, call office if weight increases 3-4 lbs in a 1-4 day period -2 gm low sodium diet -activity as tolerated, rest breaks as needed -GDMT: lasix, metoprolol, losartan, spironolactone -follow up in HF Clinic in October 12 or sooner if needed 2. Primary hypertension - ICD9: 401.9, ICD10: I10 -BP suboptimal during visit 146/47 mmHg -encourage DASH/low sodium diet -encourage exercise with rest breaks as needed -goal BP <130/80 mmHg -continue home BP monitoring 3-4 hours after morning meds 3. SSS (sick sinus syndrome) (HCC) - ICD9: 427.81, ICD10: I49.5 -s/p PPM 4. Longstanding persistent atrial fibrillation (HCC) - ICD9: 427.31, ICD10: I48.11 -CHADSVASc 5 (age, gender, HF, HTN)- s/p watchman -continue metoprolol for rate control -HR 60 bpm during office visit Follow up appointment with Cardiology to be scheduled. PAST MEDICAL HISTORY Diagnosis Date Abnormal colonoscopy 11/26/2016 08/15/15 colonoscopy for anemia hgb 10.8 with bx ileocecal valve with ischemic bowel disease with focal mucosal ulceration Abnormal CT of the abdomen 07/13/2015 diffuse calcification aorta without dilitation, wall thcikening right colon suspicious for mass (ileocecal ulcer on colonoscopy), diverticulosis right colon Abnormal CXR chronic bilateral interstitial markings, moderate cardiomegaly Atrial fibrillation (HCC) Pedro aneurysm of anterior communicating artery Dr. Aaron [facility] Bilateral carotid artery stenosis 11/26/2016 05/27/16 moderate 50-69% stenosis right and left Bilateral pneumonia 07/20/2015 Cancer of cervix (HCC) Cervical cancer (HCC) 1973 Chest pain 06/01/2015 negative work up with nuclar stress CHF (congestive heart failure) (HCC) Cholesteatoma of right ear surgical removal Chronic mastoiditis of left side Chronic renal failure, stage 3b (HCC) 04/15/2022 Diabetes (HCC) Diabetes (HCC) GERD (gastroesophageal reflux disease) H/O: GI bleed High blood pressure Hypercholesterolemia Mastoiditis of right side s/p mastoidectomy, complete opacitificationright tympanic cavity and mastoid cells on CT 06/01/16 Mitral valve regurgitation Pacemaker 10/21/[address] TRELL VERNON [id number] pulse generator, his bundle lead, right atrial lead Peripheral arterial disease (HCC) Rheumatic fever Steatosis, liver 03/26/2014 fatty liver on US. No gallstones Tachy-lionel syndrome (HCC) PAST SURGICAL HISTORY Procedure Laterality Date ABLATION 2018 for afib ANESTHESIA EXTERNAL MIDDLE AND INNER EAR W/BX NOS 2002, 2003,04/30/15 CARDIOVERSION 2018 EGD 02/28/2021 ESOPHAGOGASTRODUODENOSCOPY TRANSORAL DIAGNOSTIC 02/28/2021 LAP COLECTOMY, SIGMOID W/SUPERVISOR PLASTIC SHEETS 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 Lua PACEMAKER 10/2019 PART. HYSTERECTOMY W/WO RMVL OVARIES/TUBES 1974 h/o cervical cancer ovaries remain PAST SURGICAL HISTORY OF 1996 Aortic valve repair, Dr. Apodaca PAST SURGICAL HISTORY OF 2001 [address] Beltrán, [facility] PAST SURGICAL HISTORY OF 2015 clipping and coil for brain aneurysm Social History Tobacco Use Smoking status: Former Current packs/day: 0.00 Average packs/day: 0.3 packs/day for 2.0 years (0.5 ttl pk-yrs) Types: Cigarettes Start date: 1965 Quit date: 1967 Years since quittin.7 Smokeless tobacco: Never Vaping Use Vaping status: Never Used Substance Use Topics Alcohol use: Not Currently Alcohol/week: 1.0 standard drink of alcohol Types: 1 Glasses of Wine (5oz) per week Comment: red wine 2-3 times a week- occasional Drug use: No Family History Problem Relation Age of Onset other (Heart Problems) Mother other (myocardial infarction) Mother other (cardiovascular disease) Mother other (Heart Attack) Father other (cardiovascular disease) Father Diabetes Maternal Grandmother ALLERGIES Allergen Reactions Protamine Anaphylaxis Had acute drop in blood pressure and end tidal Co2 shortly after administration during watchman procedure on 01/12/22, treated with 60 mcg epinephrine and 10 mg dexamethasone with good response. Propofol Other: See Comments Hypotension CURRENT MEDICATIONS: Current Outpatient Medications Medication Sig Dispense Refill potassium chloride (K-TAB) 10 mEq tablet Take 1 tablet by mouth once daily. 30 tablet 3 furosemide (LASIX) 20 mg tablet Take 2 tablets by mouth once daily. TAKE AN EXTRA 20 MG in the afternoon if you note greater than 3 lbs weight gain in 24 hours 270 tablet 3 simvastatin (ZOCOR) 20 mg tablet Take 1 tablet by mouth daily at bedtime. 90 tablet 3 spironolactone (ALDACTONE) 25 mg tablet Take 0.5 tablets by mouth once daily. 45 tablet 3 omeprazole (PRILOSEC) 40 mg capsule Take 1 capsule by mouth once daily. 90 capsule 1 metoprolol succinate ER (TOPROL XL) 50 mg 24 hr tablet Take 1 tablet by mouth two times a day. 180 tablet 3 losartan (COZAAR) 50 mg tablet Take 1 tablet by mouth once daily. 90 tablet 3 Blood Pressure Monitor (BLOOD PRESSURE KIT) 1 Each once daily. 1 Each 0 aspirin 81 mg chewable tablet Take 1 tablet by mouth once daily. 30 tablet 11 acetaminophen (TYLENOL) 500 mg tablet Take 1-2 tablets by mouth every 6 hours as needed. blood sugar diagnostic (BLOOD GLUCOSE TEST) test strip Test blood sugar(s) 2 times daily. Dx: Type 2 DM - Controlled E11.9 Insulin: No 50 Strip 11 UBIDECARENONE (COQ-10 ORAL) Take 1 capsule by mouth once daily. No current facility-administered medications for this visit. REVIEW OF SYSTEMS: GENERAL: Negative for: Weight loss or gain, Fever or Chills, Weakness and Sleep difficulties. HEENT: Positive for:Glasses NECK: Negative for: Swelling, Pain, Stiffness RESPIRATORY: Positive for: Shortness of breath GASTROINTESTINAL: Negative for: Trouble swallowing, Heartburn, Change in bowel habits, Blood in stool, Dark black stools MUSCULOSKELETAL: Negtive for: Muscle or joint pain, stiffness, Joint swelling NEUROLOGIC/PSYCHIATRIC: Negative for: Weakness, Paralysis, Numbness, Tingling, Tremor, Nervousness or anxiety, Depressed mood, Memory loss SKIN: Negative for: Rash, Itching HEMATOLOGICAL/LYMPHATIC: Positive for: Easy bruising and Easy bleeding ENDOCRINE: Negative for: Heat or Cold Intolerance, Excessive Sweating, Frequent Urination, Frequent Thirst PHYSICAL EXAMINATION: BP (!) 142/47 Pulse 91 Wt 62.1 kg (137 lb) SpO2 98% BMI 25.06 kg/m? General: Normal exam, no distress, accompanied by family Skin: No clubbing, no cyanosis. Eyes: Extra ocular movements intact Neck: Neck veins are not distended Lungs: Chest clear to auscultation Heart: Rhythm: regular rate and rhythm, Rate: normal, no murmur Abdomen: Normal Extremities: trace edema to BLLE Peripheral Pulses: Normal CARDIOVASCULAR MEDICINE TESTING: Echocardiogram 11/10/2023: - The left ventricle is mildly dilated. Left ventricular systolic function is normal. EF = 58 ? 5% (2D biplane) Left ventricular diastolic function was not evaluated due to AF. - The right ventricle is dilated. Right ventricular systolic function is mildly decreased. - The left atrial cavity is moderately dilated. - The right atrial cavity is dilated. - There is mild to moderate (1-2+) mitral regurgitation. - There is moderate (2+) tricuspid valve regurgitation. - [employer]ife Homograft prosthetic aortic valve (size #28). There is moderate (2+ - 3+) aortic valve regurgitation. - There is moderate (2+) pulmonic valve regurgitation. - Estimated right ventricular systolic pressure is 73 mmHg consistent with moderately severe pulmonary hypertension. Estimated right atrial pressure is 15 mmHg based on IVC assessment. - Exam was compared with the prior CC echocardiographic exam performed on 10/28/23. The patient is now in atrial fibrillation. LV function has slightly improved. Echocardiogram 10/28/2023: - The left ventricle is mildly dilated. There is mild concentric left ventricular hypertrophy. Left ventricular systolic function is mildly decreased. EF = 51 ? 5% (2D 4-ch.) Indeterminate left ventricular diastolic dysfunction. - The right ventricle is dilated. Right ventricular systolic function is mildly decreased. - The left atrial cavity is severely dilated. - The right atrial cavity is dilated. - The visualized aorta is dilated with a maximal dimension of 4.6 cm. - There is moderate (2+) holosystolic mitral valve regurgitation. - There is moderately severe (3+) tricuspid valve regurgitation. - [employer]ife Homograft prosthetic aortic valve (size #28). There is moderate (2+) aortic valve regurgitation. The peak gradient is 25 mmHg, the mean gradient is 12 mmHg and the dimensionless valve index is 0.34. Prior pk/mn gradients were 29/14 mmHg. - Estimated right ventricular systolic pressure is 75 mmHg consistent with moderately severe pulmonary hypertension. Estimated right atrial pressure is 3 mmHg (although IVC not seen). - Exam was compared with the prior CC echocardiographic exam performed on 03/05/2023. There is now evidence of moderately severe tricuspid insufficiency. RVSP estimate has increased also. DEVICE CHECK 01/2024: Title: Normal Remote: With Events * Normal Device Function * Events or Alerts: AF episodes and 1 NSVT * Battery: OK, 10.92 yrs * Sensing, impedance and thresholds reviewed * Programmed parameters reviewed * Presenting rhythm reviewed: AP/VS * Heart Rate Histograms reviewed AP 45%, HOUSING COORDINATOR 10.4% Title: Tachycardia: AF * Stored EGMs are consistent with or suggestive of Atrial Fibrillation * AT/AF Speed: 38.7% * Total number of events: 4,598 Title: Non-sustained Ventricular Tachycardia * Stored EGMs are consistent with or suggestive of Non-sustained VT * Total episodes: 1 Latest Reference Range AND Units 02/03/24 10:02 Sodium 136 - 144 mmol/L 131 (L) Potassium 3.7 - 5.1 mmol/L 4.8 Chloride 98 - 107 mmol/L 98 CO2 22 - 30 mmol/L 22 BUN 7 - 21 mg/dL 34 (H) Creatinine 0.58 - 0.96 mg/dL 1.28 (H) Glucose 74 - 99 mg/dL 147 (H) Protein, Total 6.3 - 8.0 g/dL 7.2 Calcium 8.5 - 10.2 mg/dL 9.5 Phosphorus 2.7 - 4.8 mg/dL 3.3 Albumin 3.9 - 4.9 g/dL 4.0 Bilirubin, Total 0.2 - 1.3 mg/dL 1.1 Alkaline Phosphatase 34 - 123 U/L 102 ALT 7 - 38 U/L 10 AST 13 - 35 U/L 16 Anion Gap 8 - 15 mmol/L 11 NT Pro BNP <450 pg/mL 8,577 (H) eGFR >=60 mL/min/1.73m? 43 (L) (L): Data is abnormally low (H): Data is abnormally high I have personally reviewed the Laboratory Testing and Echocardiogram. COUNSELING: We discussed the following non-pharmacological measures during this visit: Smoking and alcohol abstinence/cessation, if applicable Dietary and medication compliance Monitoring daily weights and blood pressures Exercise regimen When to call our office Heart Failure Education Booklet: Previously given. Discussed red flags and when to call MD/ATTENDANT ARCADE or go to ED. Medications reconciled at end of visit: yes I spent 30 minutes in this visit, with more than 50% of the time devoted to patient counseling. SIGNATURE: Albin Gu APRN.CNP PATIENT NAME: Berta Sanches DATE: April 07, 2024 TIME: 904 ALLERGIES DATE TYPE / CODE NAME / CODE REACTION SEVERITY SOURCE 04/07/2023 DRUG INGREDI/[id number](SNOMED CT) PROPOFOL OTHER: SEE C Low [facility] 01/12/2022 DRUG INGREDI/[id number](SNOMED CT) PROTAMINE ANAPHYLAXIS [facility] ENCOUNTERS ADMIT/DISCHARGE ACCOUNT NUMBER ADMITTING ENCOUNTER CLASS LOCATION SOURCE 01/01/2025/01/02/20 [id number] Ambulatory [facility] 12/20/2024/12/21/19 25 [id number] Ambulatory [facility]ENID [facility] 12/20/2024/12/21/19 25 [id number] Ambulatory [facility]:MIRNA [facility] 12/19/2024/12/20/19 [id number] [facility] 12/10/2024/12/13/19 [id number] JUAN DIEGO BYRD [id number]: [address] [place] [address] 12/01/2024/12/02/19 [id number] Ambulatory [facility] ing:[address] 11/20/2024/11/21/19 25 [id number] Ambulatory [facility] ing:[address] 11/20/2024/11/21/19 25 [id number] Ambulatory [facility] 11/13/2024/11/14/19 25 [id number] Ambulatory [facility] ing:[address] 11/06/2024/11/07/19 25 [id number] Ambulatory [facility] 11/03/2024/11/04/19 25 [id number] [facility] [place] [facility] 11/03/2024/11/04/19 [id number] [facility] [place] [facility] 10/31/2024/11/01/19 25 [id number] Ambulatory [facility] ing:WOLB [facility] 10/31/2024/11/01/19 25 [id number] Ambulatory [facility] ing:WOFM [facility] 07/07/2024/07/07/19 25 [id number] Ambulatory [facility]:WOLB [facility] 07/07/2024/07/07/19 25 [id number] Ambulatory [facility] 04/07/2024/04/07/20 [id number] [facility] PAYERS ENCOUNTER GUARANTOR PAYER SUBSCRIBER SOURCE 01/01/2025 Primary Insurance:[employer] MEDICARE PPOPolicy Number: [id number] Date:4537-82-55Bmek Name:Sangeeta DURAN: [id number] [address] 12/20/2024 Primary Insurance:[employer]ET[employer] MEDICARE PPOPolicy Number: [id number] Date:0462-06-34Kuzf Name:Sangeeta DURAN: [id number] [address] 12/20/2024 Primary Insurance:[employer]ET[employer] MEDICARE PPOPolicy Number: [id number] Date:2829-40-88Ghqt Name:Sangeeta DURAN: [id number] [place], [place] [id number] [place] [address] 12/19/2024 Primary Insurance:[employer]ET[employer] MEDICARE PPOPolicy Number: [id number] Date:2168-98-89Ewhr Name:Sangeeta DURAN: [id number] [place], [place] [address] [place] [address] 12/10/2024 Primary Insurance:[employer]ET[employer] MEDICARE PPOPolicy Number: [id number] Date:4810-37-42Mphd Name:Sangeeta DURAN: [id number] [place] [address] [facility] 12/01/2024 Primary Insurance:[employer]ET[employer] MEDICARE PPOPolicy Number: [id number] Date:9487-45-45Cycy Name:Sangeeta ZAMORAB: [id number] [place], [place] [address] [place] [address] 11/20/2024 Primary Insurance:[employer]ET[employer] MEDICARE PPOPolicy Number: [id number] Date:1004-89-80Oyjo Name:Sangeeta ZAMORAB: [id number] [place], [place] [id number] [place] [address] 11/20/2024 Primary Insurance:[employer]ET[employer] MEDICARE PPOPolicy Number: [id number] Date:0392-15-25Yetk Name:Sangeeta DURAN: [id number] [place], [place] [address] [place] [address] 11/13/2024 Primary Insurance:[employer] MEDICARE PPOPolicy Number: [id number] Date:0028-59-08Dovj Name:Sangeeta DURAN: [id number] [place], [place] [address] [place] [address] 11/06/2024 Primary Insurance:[employer] MEDICARE PPOPolicy Number: [id number] Date:1239-03-14Cwnl Name:Sangeeta DURAN: [id number] [place], [place] [address] [place] [address] 11/03/2024 Primary Insurance:[employer] MEDICARE PPOPolicy Number: [id number] Date:7737-90-30Muwc Name:Sangeeta DURAN: [id number] [place], [place] [address] [place] [address] 11/03/2024 Primary Insurance:[employer]ET[employer] MEDICARE PPOPolicy Number: [id number] Date:6209-40-82Spyl Name:Sangeeta DURAN: [id number] [place] [address] [facility] 10/31/2024 Primary Insurance:[employer]ET[employer] MEDICARE PPOPolicy Number: [id number] Date:6022-82-24Axtc Name:Sangeeta DURAN: [id number] [place] [address] [facility] 10/31/2024 Primary Insurance:[employer] MEDICARE PPOPolicy Number: [id number] Date:8468-49-24Rndf Name:Sangeeta DURAN: [id number] [place] [address] [facility] 07/07/2024 Primary Insurance:[employer] MEDICARE PPOPolicy Number: [id number] Date:2656-12-12Tnlm Name:Sangeeta DURAN: [id number] [place] [address] [facility] 07/07/2024 Primary Insurance:[employer]ET[employer] MEDICARE PPOPolicy Number: [id number] Date:5449-25-97Zrzu Name:Sangeeta DURAN: [id number] [place] [address] [facility] 04/07/2024 Primary Insurance:[employer]ET[employer] MEDICARE PPOPolicy Number: [id number] Date:7329-35-66Wsdh Name:Sangeeta DURAN: [id number] [place] [address] [facility]
[2025-04-02 16:26] LABS: Staph aureus DNA By PCR POSITIVE (Negative)
== END | disposition home or self-care (01) ==
LOC: POLAB3 14:38
PROVIDERS: PCP Family Medicine Geriatric Medicine; Visit Provider Family Medicine Geriatric Medicine
DX: Z22.39 Carrier of other specified bacterial diseases (principal)
CPT/HCPCS: 87070; 87075; 87077; 87186; 87205; 87640

== ENCOUNTER → 2025-05-02 | Outpatient (CLI) | payer MEDICARE, SELFPAY ==
[2025-05-02 14:20] LABS: Hematocrit 33.7 % (37-47); Hemoglobin 11.0 g/dL (12.0-15.0); Immature Granulocytes Count 0.040 X10^3/uL (0.0-0.0); Mean Corp Hgb Conc 32.6 g/dL (32-36); Mean Corpuscular Volume 93.9 fL (81-99); Mean Platelet Vol. 9.7 fl (6.2-12.0); NRBC Flagged by Analyzer 0 % (0-5); POSITIVE MORPHOLOGY YES; Platelet Count 131 K/mm3 (150-450); RBC Distribution Width CV 22.2 % (11.6-14.6); RBC Distribution Width SD 77.4 fl (35.1-43.9); Red Blood Count 3.59 M/mm3 (4.2-5.4); White Blood Count 6.6 K/mm3 (4.4-11.0)
[2025-05-02 14:27] LABS: Differential Indicated SCAN CRITERIA MET
[2025-05-02 15:03] LABS: Anisocytosis 1+
[2025-05-02 15:19] LABS: AST(SGOT) 31 U/L (<=31); Alanine Aminotransfer ALT/SGPT 13 U/L (<=34); Albumin, Serum 4.0 g/dL (3.4-4.8); Alkaline Phosphatase 104 U/L (35-104); Anion Gap 15 (5-15); BUN 73 mg/dL (4-19); BUN/Creat Ratio 39.5 RATIO (10-20); Calcium,Total 9.6 mg/dL (7.6-11.0); Carbon Dioxide 27.1 mmol/L (21.0-32.0); Chloride 90 mmol/L (98-108); Globulin 3.3 g/dL (2.2-4.2); Glucose 142 mg/dL (70-99); Potassium 3.6 mmol/L (3.3-5.1); Vitamin D,25 Hydroxy 35.0 ng/mL (30-100)
[2025-05-02 22:05] LABS: Xtra Tube Kwok EXTRA TUBE
== END | disposition home or self-care (01) ==
LOC: POLAB3 14:03
PROVIDERS: PCP Family Medicine Geriatric Medicine; Visit Provider Family Medicine Geriatric Medicine
DX: E03.9 Hypothyroidism, unspecified (principal); E55.9 Vitamin D deficiency, unspecified; R53.83 Other fatigue
CPT/HCPCS: 36415; 80053; 82306; 84443; 85025

== ENCOUNTER 2025-05-03 11:15 | Outpatient (RCR) | payer MEDICARE, SELFPAY ==
--- NOTE | 2025-04-05 16:47 | PN.PCM_ITS ---
History of Present Illness Date of Service: 04/05/25 Chief Complaint: Bilateral lower extremity ulcers History of Wound: Ms. Yates is a 70-year-old who was referred to the wound center by her PCP due to nonhealing bilateral lower extremity ulceration. Said to have started months ago during a prolonged hospitalization in [place]. Bilateral foot/heel and right kaur. She has been applying Neosporin without any significant improvement. She reports a history of vascular surgery in [place]. 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 No significant tobacco use, smoked for about 6 months quit over 50 years ago. She reports a history of "borderline diabetes". Currently not on medication. Appetite is fair, concern for recent significant weight loss.. Otherwise, she states that she feels well. Progress of Wound: She presents with new right lower extremity and left lower extremity ulcers. She denies any known precipitating factors but has not been using her compression stockings. Heel ulcers are improving. Left foot/heel essentially healed. Charges/Coding Procedures Integumentary [id number]: [id number] Etelvina subq tissue 20 sq cm/< Physical Exam Const alert, oriented x3 and no apparent distress General Appearance: cooperative, well kempt and well developed HEENT normocephalic and head/scalp atraumatic Eyes EOMs intact bilaterally Neck full ROM General: normal visual inspection Resp normal respiratory effort Effort and Inspection: able to speak in complete sentences Skin Wounds: wounds noted size Size: See clinical note, bed with slough, margins well approximated, no odor, open and surrounding erythema Neuro oriented x3, CN's II-XII intact bilaterally, moves all extremities and no focal motor deficits Psych mental status grossly normal, thought process normal, cooperative and affect normal Debridement Note Debridement Note Wound debrided: Right leg cluster (superior) Type of Debridement: Excisional debridement Anesthesia Used: 5% Lidocaine Gel Depth: Down to and including healthy tissue and in the subcutaneous layer Percentage of wound debrided: 100 Instrument Used: 3mm curette Tissue Removed: Slough and devitalized tissue Severity: Fat Layer Exposed Amount of bleeding with debridement: Mild Bleeding Controlled with: Pressure Patient tolerated procedure: Patient tolerated procedure well Post-Debridement Measurements and Additional Note: Post-Debridement Measurements/Treatment YANY - Nurse 1 - General Ulcer Assessment Start: 04/05/25 11:27 Freq: Status: Active Protocol: TOMASZ Activity Type Activity Date Activity User E-sign Co-sign Detail Recorded Client Recorded Date Recorded By Document 04/05/25 11:51 LINDSAY [id number] 04/05/25 12:26 LINDSAY 04/05/25 11:51 YANY - Today's Visit Information 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 Any new allergies or adverse reactions No Had a fall/change in ADL's that may No increase risk of falls Signs or symptoms of abuse and/or No neglect since last visit Have you been in the hospital since your No last visit? Has dressing in place as prescribed Yes Has compression in place as prescribed No Has offloadiing in place as prescribed N/A Experienced any changes in pain level or No management Left Footwear Regular Shoe Right Footwear Regular Shoe Pain Scale: 0-10 Numeric Is Patient Pain Free? Yes - Nurse 1 - General Ulcer Measurement Start: 04/05/25 11:27 Freq: Status: Active Protocol: Activity Type Activity Date Activity User E-sign Co-sign Detail Recorded Client Recorded Date Recorded By Document 04/05/25 11:51 LINDSAY [id number] 04/05/25 12:26 LINDSAY 04/05/25 11:51 Wound Center Nurse 1 #5 LT KAUR -Combined with other wound No -Current Size (cm) - Length 0.3 -Current Size (cm) - Width 0.3 -Current Size (cm) - Depth 0.1 -Total Square Cm 0.09 -Photo Taken No -Tunneling No -Undermining/Tunneling No -Circular Undermining No -Exudate Amt None Present -Wound Margin Distinct, Outline Attached -Granulation Amt Medium (34-66%) -Granulation Quality Pale,[place] -Slough/Fibrin Yes -Necrosis Amt Large (67-100%) -Necrotic Tissue Type Adherent Slough -Texture (Violet-wound Skin Appearance) Assessed -Moisture (Violet-wound Skin Appearance) Assessed, Weeping -Color (Violet-wound Skin Appearance) Assessed -Temperature (Violet-wound Skin No Abnormality Appearance) (Pt Warm) -Tenderness on Palpation (Violet-wound No Skin Appearance) -Ulcer Cleansing Soap and Water -Foul Odor after Cleansing No -Anesthetic Used 5% Lidocaine Gel #3 LT HEEL -Combined with other wound No -Current Size (cm) - Length 0.1 -Current Size (cm) - Width 0.1 -Current Size (cm) - Depth 0.1 -Total Square Cm 0.01 -Photo Taken No -Tunneling No -Undermining/Tunneling No -Circular Undermining No -Exudate Amt None Present -Wound Margin Distinct, Outline Attached -Granulation Amt None Present (0 %) -Necrosis Amt None Present (0 %) -Texture (Violet-wound Skin Appearance) Assessed,Callus -Moisture (Violet-wound Skin Appearance) Assessed -Color (Violet-wound Skin Appearance) Assessed -Temperature (Violet-wound Skin No Abnormality Appearance) (Pt Warm) -Tenderness on Palpation (Violet-wound No Skin Appearance) -Ulcer Cleansing Soap and Water -Foul Odor after Cleansing No -Anesthetic Used 5% Lidocaine Gel #2 RT HEEL -Combined with other wound No -Current Size (cm) - Length 0.2 -Current Size (cm) - Width 1 -Current Size (cm) - Depth 0.1 -Total Square Cm 0.2 -Photo Taken No -Tunneling No -Undermining/Tunneling No -Circular Undermining No -Exudate Amt Small -Exudate Type Serosanguineous -Wound Margin Distinct, Outline Attached -Granulation Amt None Present (0 %) -Slough/Fibrin Yes -Necrosis Amt Large (67-100%) -Necrotic Tissue Type Adherent Slough -Texture (Violet-wound Skin Appearance) Assessed -Moisture (Violet-wound Skin Appearance) Assessed -Color (Violet-wound Skin Appearance) Assessed -Temperature (Violet-wound Skin No Abnormality Appearance) (Pt Warm) -Tenderness on Palpation (Violet-wound Yes Skin Appearance) -Ulcer Cleansing Soap and Water -Foul Odor after Cleansing No -Anesthetic Used 5% Lidocaine Gel #1 RT KAUR CLUSTER [place] -Combined with other wound No -Current Size (cm) - Length 8.1 -Current Size (cm) - Width 5.7 -Current Size (cm) - Depth 0.1 -Total Square Cm 46.17 -Photo Taken No -Tunneling No -Undermining/Tunneling No -Circular Undermining No -Exudate Amt Small -Exudate Type Serous -Wound Margin Distinct, Outline Attached -Granulation Amt Medium (34-66%) -Granulation Quality [place] -Slough/Fibrin Yes -Necrosis Amt Small (1-33%) -Necrotic Tissue Type Adherent Slough -Texture (Violet-wound Skin Appearance) Assessed -Moisture (Violet-wound Skin Appearance) Assessed -Color (Violet-wound Skin Appearance) Assessed -Temperature (Violet-wound Skin No Abnormality Appearance) (Pt Warm) -Tenderness on Palpation (Violet-wound Yes Skin Appearance) -Foul Odor after Cleansing No -Anesthetic Used 5% Lidocaine Gel WC - Nurse 2 - General Ulcer CM Notes Start: 04/05/25 11:27 Freq: Status: Active Protocol: Activity Type Activity Date Activity User E-sign Co-sign Detail Recorded Client Recorded Date Recorded By Document 04/05/25 12:29 GM [id number] 04/05/25 12:43 GM 04/05/25 12:29 Wound Center Nurse 2 #4 L POSTERIOR FOOT -Time 12:30 -Correct Patient Yes -Correct Side, Site, Position Yes #6 Right inferior kaur -Time 12:43 -Correct Patient Yes -Correct Side, Site, Position Yes -Correct Procedure Yes -Procedure Performed Yes -Type of Procedure Debridement -Clinical Debridement Subcutaneous -Tissue Removed Subcutaneous -Post Debridement (cm) - Length 1.5 -Post Debridement (cm) - Width 0.4 -Post Debridement (cm) - Depth 0.1 -Total Square (Post) (cm) 0.60 -Area of Debridement (cm) - Length 1.5 -Area of Debridement (cm) - Width 0.4 -Total Square (Area) (cm) 0.60 -Tunneling No -Undermining/Tunneling No -Circular Undermining No -Wound/Ulcer Outcome Not Healed -Ulcer Cleansing Rinsed/ Irrigated with Saline -Foul Odor after Cleansing No -Bioengineered Tissue No -Bleeding Controlled with Pressure -Treatment Response Procedure Tolerated Well -Offloading No -Debridement - Subq, 1st 20sq cm Yes #5 LT KAUR -Time 12:30 -Correct Patient Yes -Correct Side, Site, Position Yes -Correct Procedure Yes -Procedure Performed Yes -Type of Procedure Debridement -Clinical Debridement Subcutaneous -Tissue Removed Subcutaneous -Post Debridement (cm) - Length 0.6 -Post Debridement (cm) - Width 0.4 -Post Debridement (cm) - Depth 0.1 -Total Square (Post) (cm) 0.24 -Area of Debridement (cm) - Length 0.6 -Area of Debridement (cm) - Width 0.4 -Total Square (Area) (cm) 0.24 -Tunneling No -Undermining/Tunneling No -Circular Undermining No -Wound/Ulcer Outcome Not Healed -Ulcer Cleansing Rinsed/ Irrigated with Saline -Foul Odor after Cleansing No -Bioengineered Tissue No -Bleeding Controlled with Pressure -Treatment Response Procedure Tolerated Well -Offloading No -Debridement - Subq, 1st 20sq cm No #3 LT HEEL -Time 12:30 -Correct Patient Yes -Correct Side, Site, Position Yes -Correct Procedure No -Procedure Performed No -Post Debridement (cm) - Length 0.1 -Post Debridement (cm) - Width 0.1 -Post Debridement (cm) - Depth 0.1 -Total Square (Post) (cm) 0.01 -Wound/Ulcer Outcome Not Healed -Ulcer Cleansing Not Cleansed -Bleeding Controlled with NA #2 RT HEEL -Time 12:30 -Correct Patient Yes -Correct Side, Site, Position Yes -Correct Procedure Yes -Procedure Performed Yes -Type of Procedure Debridement -Clinical Debridement Subcutaneous -Tissue Removed Subcutaneous -Post Debridement (cm) - Length 1.1 -Post Debridement (cm) - Width 0.2 -Post Debridement (cm) - Depth 0.1 -Total Square (Post) (cm) 0.22 -Area of Debridement (cm) - Length 1.1 -Area of Debridement (cm) - Width 0.2 -Total Square (Area) (cm) 0.22 -Tunneling No -Undermining/Tunneling No -Circular Undermining No -Wound/Ulcer Outcome Not Healed -Ulcer Cleansing Rinsed/ Irrigated with Saline -Foul Odor after Cleansing No -Bioengineered Tissue No -Bleeding Controlled with Pressure -Treatment Response Procedure Tolerated Well -Debridement - Subq, 1st 20sq cm No #1 RT KAUR CLUSTER [place] -Time 12:30 -Correct Patient Yes -Correct Side, Site, Position Yes -Correct Procedure Yes -Procedure Performed Yes -Type of Procedure Debridement -Clinical Debridement Subcutaneous -Tissue Removed Subcutaneous -Post Debridement (cm) - Length 2.0 -Post Debridement (cm) - Width 3.0 -Post Debridement (cm) - Depth 0.1 -Total Square (Post) (cm) 6.00 -Area of Debridement (cm) - Length 2.0 -Area of Debridement (cm) - Width 3.0 -Total Square (Area) (cm) 6.00 -Tunneling No -Undermining/Tunneling No -Circular Undermining No -Wound/Ulcer Outcome Not Healed -Ulcer Cleansing Rinsed/ Irrigated with Saline -Foul Odor after Cleansing No -Bioengineered Tissue No -Bleeding Controlled with Pressure -Treatment Response Procedure Tolerated Well -Offloading No -Debridement - Subq, 1st 20sq cm No Pain Scale: 0-10 Numeric Is Patient Pain Free? Yes - Nurse 3 - General Ulcer D/C NN Start: 04/05/25 11:27 Freq: Status: Active Protocol: Activity Type Activity Date Activity User E-sign Co-sign Detail Recorded Client Recorded Date Recorded By Document 04/05/25 12:50 DS [id number] 04/05/25 13:18 DS 04/05/25 12:50 Wound Care Center Nurse 3 #5 LT KAUR -Primary Dressing Applied Promogran -Promogran 0 #3 LT HEEL -Primary Dressing Applied NonAdherent Contact Layer, Silicone Border Foam 4x4 -Primary Dressing Covered/Secured with Dry Gauze, Secured with Tape -Silicone Border Foam 4x4 1 #2 RT HEEL -Primary Dressing Applied NonAdherent Contact Layer -Primary Dressing Covered/Secured with Dry Gauze, Secured with Tape #1 RT KAUR CLUSTER [place] -Primary Dressing Applied Promogran, Silicone Border Foam 6x6 -Promogran 1 -Silicone Border Foam 6x6 1 BLE -Multi-Layered Wrap Application Multi-Layer Comp - Bilat ($ ) -Multi-Layer Compression Bilat (Qty 1 applied) Pain Scale: 0-10 Numeric Is Patient Pain Free? Yes - Visit Discharge Discharge Condition Stable Ambulatory Status Ambulatory Transportation Private Auto Additional Wound Wound debrided: Right leg cluster (inferior) Type of Debridement: Excisional debridement Anesthesia Used: 5% Lidocaine Gel Depth: Down to and including healthy tissue and in the subcutaneous layer Percentage of wound debrided: 100 Instrument Used: 3mm curette Tissue Removed: Slough and devitalized tissue Amount of bleeding with debridement: Mild Bleeding Controlled with: Pressure Patient tolerated procedure: Patient tolerated procedure well Additional Wound Wound debrided: Left lower extremity Type of Debridement: Excisional debridement Anesthesia Used: 5% Lidocaine Gel Depth: Down to and including healthy tissue and in the subcutaneous layer Percentage of wound debrided: 100 Instrument Used: 3mm curette Tissue Removed: Slough and devitalized tissue Severity: Fat Layer Exposed Amount of bleeding with debridement: Mild Bleeding Controlled with: Pressure Patient tolerated procedure: Patient tolerated procedure well Additional Wound Wound debrided: Right foot Type of Debridement: Excisional debridement Anesthesia Used: 5% Lidocaine Gel Depth: Down to and including healthy tissue and in the subcutaneous layer Percentage of wound debrided: 100 Instrument Used: 3mm curette Tissue Removed: Slough and devitalized tissue Severity: Fat Layer Exposed Amount of bleeding with debridement: Mild Bleeding Controlled with: Pressure Patient tolerated procedure: Patient tolerated procedure well Assessment/Plan Assessment/Plan (1) Ulcer of right lower extremity with fat layer exposed: CODE(S): L97.912 - Non-pressure chronic ulcer of unspecified part of right lower leg with fat layer exposed (2) Ulcer of right foot with fat layer exposed: CODE(S): L97.512 - Non-pressure chronic ulcer of other part of right foot with fat layer exposed (3) Ulcer of left foot with fat layer exposed: CODE(S): L97.522 - Non-pressure chronic ulcer of other part of left foot with fat layer exposed (4) PAD (peripheral artery disease): CODE(S): I73.9 - Peripheral vascular disease, unspecified (5) PAF (paroxysmal atrial fibrillation): CODE(S): I48.0 - Paroxysmal atrial fibrillation (6) Type 2 diabetes mellitus: CODE(S): E11.9 - Type 2 diabetes mellitus without complications (7) Chronic kidney disease, stage 3b: CODE(S): N18.32 - Chronic kidney disease, stage 3b (8) Ulcer of left lower extremity with fat layer exposed: CODE(S): L97.922 - Non-pressure chronic ulcer of unspecified part of left lower leg with fat layer exposed PLAN: Plan Debridement done as documented above, procedure was well-tolerated. Had better luck with keeping dressing in place to her foot ulcers and did not use Band-Aids with subsequent improvement this time. However, did not wear compression, worsening lower extremity edema, blistering and subsequent ulcerations. They did not permit home health in their home. Continue Promogran to all areas of ulceration, cover bilateral foot with Adaptic and then foam dressing. Will switch to 3M wraps for compression for better compliance/help with dressing stay ing in place. Lightly wrap due to history of PAD. Follow-up on Wednesday for nurse visit/change and call sooner with any concerns. Patient and voiced understanding. Continue diuretic management per PCP. Leg elevation discussed and exercise as tolerated. Optimal diabetes control recommended. Optimal dietary intake. Their questions were answered, they were advised to let us know if he had any further questions or concerns. Follow-up in a week with me. This note was generated with [employer] dictation software. It may contain incorrect words, spelling, and punctuation that were not noted in checking the note before signing.
[2025-04-09 11:52] VITALS: BP 149/53; PULSE 91; RESP 18; TEMP 36.1
[2025-04-12 11:32] VITALS: BP 147/86; PULSE 89; RESP 16; TEMP 36.7
--- NOTE | 2025-04-12 12:27 | PCM.WC.PN ---
History of Present Illness Date of Service: 04/12/25 Chief Complaint: Bilateral lower extremity ulcers History of Wound: Ms. Yates is a 70-year-old who was referred to the wound center by her PCP due to nonhealing bilateral lower extremity ulceration. Said to have started months ago during a prolonged hospitalization in [place]. Bilateral foot/heel and right kaur. She has been applying Neosporin without any significant improvement. She reports a history of vascular surgery in [place]. 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 No significant tobacco use, smoked for about 6 months quit over 50 years ago. She reports a history of "borderline diabetes". Currently not on medication. Appetite is fair, concern for recent significant weight loss.. Otherwise, she states that she feels well. Progress of Wound: At her last visit, due to new areas of opening and lower extremity edema, she was switched to a 3M wrap. Came in for a nurse visit on Wednesday and requested that that the wrap not be reapplied because she did not tolerate it. There had been significant improvement in her ulcers with the left lower extremity ulcer healing. Right foot with minimal area and right leg down to 1 ulcer. She insists that she is not open to putting it back on. Objective Data Objective Data Vital Signs: Vital Signs Temp Pulse Resp BP O2 Del Method 98.1 F 89 16 147/86 H Room Air 04/12/25 11:32 04/12/25 11:32 04/12/25 11:32 04/12/25 11:32 04/12/25 11:32 Oxygen Delivery Method Room Air Charges/Coding Procedures Integumentary 111xxx-113xx: 77725 Etelvina subq tissue 20 sq cm/< Physical Exam Const alert, oriented x3 and no apparent distress General Appearance: cooperative, well kempt and well developed HEENT normocephalic and head/scalp atraumatic Eyes EOMs intact bilaterally Neck full ROM General: normal visual inspection Resp normal respiratory effort Effort and Inspection: able to speak in complete sentences Skin Wounds: wounds noted size Size: See clinical note, bed with slough, margins well approximated, no odor, open and surrounding erythema Neuro oriented x3, CN's II-XII intact bilaterally, moves all extremities and no focal motor deficits Psych mental status grossly normal, thought process normal, cooperative and affect normal Debridement Note Debridement Note Wound debrided: Right kaur Type of Debridement: Excisional debridement Anesthesia Used: 5% Lidocaine Gel Depth: Down to and including healthy tissue and in the subcutaneous layer Percentage of wound debrided: 100 Instrument Used: 3mm curette Tissue Removed: Slough and devitalized tissue Severity: Fat Layer Exposed Amount of bleeding with debridement: Mild Bleeding Controlled with: Pressure Patient tolerated procedure: Patient tolerated procedure well Post-Debridement Measurements and Additional Note: Post-Debridement Measurements/Treatment - Nurse 1 - General Ulcer Assessment Start: 04/05/25 11:27 Freq: Status: Active Protocol: TOMASZ Activity Type Activity Date Activity User E-sign Co-sign Detail Recorded Client Recorded Date Recorded By Document 04/05/25 11:51 JM [id number] 04/05/25 12:26 JM Document 04/09/25 11:52 RB [id number] 04/09/25 12:00 RB Document 04/12/25 11:32 [id number] 04/12/25 11:39 04/05/25 04/09/25 04/12/25 11:51 11:52 11:32 - Today's Visit Information Type of service Follow-up Visit Nurse-only Follow-up Visit (Physician/BRAND DESIGNER Visit (Physician/BRAND DESIGNER ) ) Arrival Mode Ambulatory Ambulatory Ambulatory Transfer Assistance None None None Accompanied by Patient Identification Verified (Name & Yes Yes Yes ) Patient Requires Transmission-Based No No Precautions Safety Precautions Fall Prevention Vital Signs Temperature (97.8 F-99.1 F) 97 F L 98.1 F Temperature Source Temporal Temporal Pulse Rate (60-100) 91 89 Pulse Location Monitor Monitor Respiratory Rate (12-18) 18 16 Respiratory rate source Observation Observation Oxygen Delivery Method Room Air Blood Pressure (90/60-120/80) 149/53 H 147/86 H Blood Pressure Mean (mm Hg) 85 106 Source Monitor Monitor Position Semi-Fowlers Sitting Blood Pressure Location Left Arm Left Arm History Since Last Visit- (Skip if this is Patient's initial visit) Have you changed medications since your Yes No last visit? Any new allergies or adverse reactions No No Had a fall/change in ADL's that may No No increase risk of falls Signs or symptoms of abuse and/or No No neglect since last visit Have you been in the hospital since your No No last visit? Has dressing in place as prescribed Yes Yes Has compression in place as prescribed No No Has offloadiing in place as prescribed N/A N/A Experienced any changes in pain level or No No management Left Footwear Regular Shoe Regular Shoe Regular Shoe Right Footwear Regular Shoe Regular Shoe Regular Shoe Pain Scale: 0-10 Numeric Is Patient Pain Free? Yes Yes Yes WC - Nurse 1 - General Ulcer Measurement Start: 04/05/25 11:27 Freq: Status: Active Protocol: Activity Type Activity Date Activity User E-sign Co-sign Detail Recorded Client Recorded Date Recorded By Document 04/05/25 11:51 JM [id number] 04/05/25 12:26 JM Document 04/09/25 11:52 RB [id number] 04/09/25 12:00 RB Document 04/12/25 11:32 GM [id number] 04/12/25 11:39 GM 04/05/25 04/09/25 04/12/25 11:51 11:52 11:32 Wound Center Nurse 1 #6 Right inferior kaur -Combined with other wound No #5 LT KAUR -Combined with other wound No -Current Size (cm) - Length 0.3 -Current Size (cm) - Width 0.3 -Current Size (cm) - Depth 0.1 -Total Square Cm 0.09 -Photo Taken No -Tunneling No -Undermining/Tunneling No -Circular Undermining No -Exudate Amt None Present -Wound Margin Distinct, Outline Attached -Granulation Amt Medium (34-66%) -Granulation Quality Pale,[place] -Slough/Fibrin Yes -Necrosis Amt Large (67-100%) -Necrotic Tissue Type Adherent Slough -Texture (Violet-wound Skin Appearance) Assessed -Moisture (Violet-wound Skin Appearance) Assessed, Weeping -Color (Violet-wound Skin Appearance) Assessed -Temperature (Violet-wound Skin No Abnormality Appearance) (Pt Warm) -Tenderness on Palpation (Violet-wound No Skin Appearance) -Ulcer Cleansing Soap and Water -Foul Odor after Cleansing No -Anesthetic Used 5% Lidocaine Gel #3 LT HEEL -Combined with other wound No -Current Size (cm) - Length 0.1 0.1 -Current Size (cm) - Width 0.1 0.1 -Current Size (cm) - Depth 0.1 0.1 -Total Square Cm 0.01 0.01 -Photo Taken No No -Epithelialization Large 67-100% -Tunneling No No -Undermining/Tunneling No No -Circular Undermining No No -Exudate Amt None Present None Present -Wound Margin Distinct, Distinct, Outline Outline Attached Attached -Granulation Amt None Present (0 %) -Necrosis Amt None Present (0 %) -Texture (Violet-wound Skin Appearance) Assessed,Callus -Moisture (Violet-wound Skin Appearance) Assessed -Color (Violet-wound Skin Appearance) Assessed -Temperature (Violet-wound Skin No Abnormality Appearance) (Pt Warm) -Tenderness on Palpation (Violet-wound No Skin Appearance) -Ulcer Cleansing Soap and Water -Foul Odor after Cleansing No -Anesthetic Used 5% Lidocaine Gel #2 RT HEEL -Combined with other wound No -Current Size (cm) - Length 0.2 0.1 -Current Size (cm) - Width 1 0.1 -Current Size (cm) - Depth 0.1 0.1 -Total Square Cm 0.2 0.01 -Photo Taken No No -Epithelialization Large 67-100% -Tunneling No No -Undermining/Tunneling No No -Circular Undermining No No -Exudate Amt Small None Present -Exudate Type Serosanguineous -Wound Margin Distinct, Outline Attached -Granulation Amt None Present (0 None Present (0 %) %) -Slough/Fibrin Yes -Necrosis Amt Large (67-100%) -Necrotic Tissue Type Adherent Slough -Texture (Violet-wound Skin Appearance) Assessed Assessed -Moisture (Violet-wound Skin Appearance) Assessed Assessed -Color (Violet-wound Skin Appearance) Assessed Assessed -Temperature (Violet-wound Skin No Abnormality No Abnormality Appearance) (Pt Warm) (Pt Warm) -Tenderness on Palpation (Violet-wound Yes No Skin Appearance) -Ulcer Cleansing Soap and Water -Foul Odor after Cleansing No -Anesthetic Used 5% Lidocaine Gel #1 RT KAUR CLUSTER Superior -Combined with other wound No -Current Size (cm) - Length 8.1 0.4 -Current Size (cm) - Width 5.7 0.5 -Current Size (cm) - Depth 0.1 0.1 -Total Square Cm 46.17 0.20 -Date of Last Picture (Recall this 04/12/25 field) -Photo Taken No Yes -Epithelialization None Present -Tunneling No No -Undermining/Tunneling No No -Circular Undermining No No -Exudate Amt Small Small -Exudate Type Serous Yellow/Green -Wound Margin Distinct, Distinct, Outline Outline Attached Attached -Granulation Amt Medium (34-66%) Small (1-33%) -Granulation Quality [place] -Slough/Fibrin Yes No -Necrosis Amt Small (1-33%) None Present (0 %) -Necrotic Tissue Type Adherent Slough -Texture (Violet-wound Skin Appearance) Assessed Assessed -Moisture (Violet-wound Skin Appearance) Assessed Assessed -Color (Violet-wound Skin Appearance) Assessed Assessed -Temperature (Violet-wound Skin No Abnormality No Abnormality Appearance) (Pt Warm) (Pt Warm) -Tenderness on Palpation (Violte-wound Yes No Skin Appearance) -Ulcer Cleansing Rinsed/ Irrigated with Saline -Foul Odor after Cleansing No No -Anesthetic Used 5% Lidocaine 5% Lidocaine Gel Gel Lower Limb Edema Present Yes Right Calf (cm) 29.5 Right Ankle (cm) 18.2 Left Calf (cm) 31.2 Left Ankle (cm) 18.5 WC - Nurse 2 - General Ulcer CM Notes Start: 04/05/25 11:27 Freq: Status: Active Protocol: Activity Type Activity Date Activity User E-sign Co-sign Detail Recorded Client Recorded Date Recorded By Document 04/05/25 12:29 [id number] 04/05/25 12:43 Document 04/12/25 11:44 [id number] 04/12/25 11:52 04/05/25 04/12/25 12:29 11:44 Wound Center Nurse 2 #6 Right inferior kaur -Time 12:43 -Correct Patient Yes -Correct Side, Site, Position Yes -Correct Procedure Yes -Procedure Performed Yes -Type of Procedure Debridement -Clinical Debridement Subcutaneous -Tissue Removed Subcutaneous -Post Debridement (cm) - Length 1.5 -Post Debridement (cm) - Width 0.4 -Post Debridement (cm) - Depth 0.1 -Total Square (Post) (cm) 0.60 -Area of Debridement (cm) - Length 1.5 -Area of Debridement (cm) - Width 0.4 -Total Square (Area) (cm) 0.60 -Tunneling No -Undermining/Tunneling No -Circular Undermining No -Wound/Ulcer Outcome Not Healed -Ulcer Cleansing Rinsed/ Irrigated with Saline -Foul Odor after Cleansing No -Bioengineered Tissue No -Bleeding Controlled with Pressure -Treatment Response Procedure Tolerated Well -Offloading No -Debridement - Subq, 1st 20sq cm Yes #4 L POSTERIOR FOOT -Time 12:30 -Correct Patient Yes -Correct Side, Site, Position Yes #5 LT KAUR -Time 12:30 11:44 -Correct Patient Yes Yes -Correct Side, Site, Position Yes Yes -Correct Procedure Yes No -Procedure Performed Yes No -Type of Procedure Debridement -Clinical Debridement Subcutaneous -Tissue Removed Subcutaneous -Post Debridement (cm) - Length 0.6 -Post Debridement (cm) - Width 0.4 -Post Debridement (cm) - Depth 0.1 -Total Square (Post) (cm) 0.24 -Area of Debridement (cm) - Length 0.6 -Area of Debridement (cm) - Width 0.4 -Total Square (Area) (cm) 0.24 -Tunneling No -Undermining/Tunneling No -Circular Undermining No -Wound/Ulcer Outcome Not Healed Healed- Epithelialized -Ulcer Cleansing Rinsed/ Not Cleansed Irrigated with Saline -Foul Odor after Cleansing No No -Bioengineered Tissue No No -Bleeding Controlled with Pressure NA -Treatment Response Procedure Tolerated Well -Offloading No -Debridement - Subq, 1st 20sq cm No #3 LT HEEL -Time 12:30 11:45 -Correct Patient Yes Yes -Correct Side, Site, Position Yes Yes -Correct Procedure No No -Procedure Performed No No -Post Debridement (cm) - Length 0.1 -Post Debridement (cm) - Width 0.1 -Post Debridement (cm) - Depth 0.1 -Total Square (Post) (cm) 0.01 -Wound/Ulcer Outcome Not Healed Healed- Epithelialized -Ulcer Cleansing Not Cleansed -Foul Odor after Cleansing No -Bioengineered Tissue No -Bleeding Controlled with NA NA -Offloading No #2 RT HEEL -Time 12:30 11:45 -Correct Patient Yes Yes -Correct Side, Site, Position Yes Yes -Correct Procedure Yes Yes -Procedure Performed Yes Yes -Type of Procedure Debridement Debridement -Clinical Debridement Subcutaneous Subcutaneous -Tissue Removed Subcutaneous Subcutaneous -Post Debridement (cm) - Length 1.1 1.4 -Post Debridement (cm) - Width 0.2 0.1 -Post Debridement (cm) - Depth 0.1 0.1 -Total Square (Post) (cm) 0.22 0.14 -Area of Debridement (cm) - Length 1.1 1.4 -Area of Debridement (cm) - Width 0.2 0.1 -Total Square (Area) (cm) 0.22 0.14 -Tunneling No No -Undermining/Tunneling No No -Circular Undermining No No -Wound/Ulcer Outcome Not Healed Not Healed -Ulcer Cleansing Rinsed/ Rinsed/ Irrigated with Irrigated with Saline Saline -Foul Odor after Cleansing No No -Bioengineered Tissue No No -Bleeding Controlled with Pressure Pressure -Treatment Response Procedure Procedure Tolerated Well Tolerated Well -Offloading No -Debridement - Subq, 1st 20sq cm No No #1 RT KAUR CLUSTER Superior -Time 12:30 11:45 -Correct Patient Yes Yes -Correct Side, Site, Position Yes Yes -Correct Procedure Yes Yes -Procedure Performed Yes Yes -Type of Procedure Debridement Debridement -Clinical Debridement Subcutaneous Subcutaneous -Tissue Removed Subcutaneous Subcutaneous -Post Debridement (cm) - Length 2.0 0.4 -Post Debridement (cm) - Width 3.0 0.4 -Post Debridement (cm) - Depth 0.1 0.1 -Total Square (Post) (cm) 6.00 0.16 -Area of Debridement (cm) - Length 2.0 0.4 -Area of Debridement (cm) - Width 3.0 0.4 -Total Square (Area) (cm) 6.00 0.16 -Tunneling No No -Undermining/Tunneling No No -Circular Undermining No No -Wound/Ulcer Outcome Not Healed Not Healed -Ulcer Cleansing Rinsed/ Rinsed/ Irrigated with Irrigated with Saline Saline -Foul Odor after Cleansing No No -Bioengineered Tissue No No -Bleeding Controlled with Pressure Pressure -Treatment Response Procedure Procedure Tolerated Well Tolerated Well -Offloading No No -Total Non-Weight Bearing to Left Lower Extremity -Debridement - Subq, 1st 20sq cm No Yes Pain Scale: 0-10 Numeric Is Patient Pain Free? Yes Yes WC - Nurse 3 - General Ulcer D/C NN Start: 04/05/25 11:27 Freq: Status: Active Protocol: Activity Type Activity Date Activity User E-sign Co-sign Detail Recorded Client Recorded Date Recorded By Document 04/05/25 12:50 DS [id number] 04/05/25 13:18 DS Document 04/09/25 11:52 RB [id number] 04/09/25 12:00 RB Document 04/12/25 12:14 JF [id number] 04/12/25 12:15 JF 04/05/25 04/09/25 04/12/25 12:50 11:52 12:14 Wound Care Center Nurse 3 #6 Right inferior kaur -Ulcer Cleansing Wound Cleanser -Primary Dressing Applied Promogran, Silicone Border Foam 6x6 -Promogran 1 -Silicone Border Foam 6x6 1 #5 LT KAUR -Primary Dressing Applied Promogran Silicone Border Foam AG 3.6x4 -Other Dressing promogrAN -Promogran 0 -Silicone Border Foam AG 3.6x4 1 #3 LT HEEL -Ulcer Cleansing Wound Cleanser -Primary Dressing Applied NonAdherent NonAdherent Contact Layer, Contact Layer, Silicone Border Silicone Border Foam 4x4 Foam AG 3.6x4 -Primary Dressing Covered/Secured with Dry Gauze, Secured with Tape -Silicone Border Foam AG 3.6x4 1 -Silicone Border Foam 4x4 1 #2 RT HEEL -Ulcer Cleansing Wound Cleanser -Primary Dressing Applied NonAdherent NonAdherent NonAdherent Contact Layer Contact Layer, Contact Layer Silicone Border Foam AG 3.6x4 -Primary Dressing Covered/Secured with Dry Gauze, Dry Gauze, Secured with Secured with Tape Tape -Silicone Border Foam AG 3.6x4 1 #1 RT KAUR CLUSTER Superior -Ulcer Cleansing Rinsed/ Irrigated with Saline -Foul Odor after Cleansing No -Primary Dressing Applied Promogran, NonAdherent Silicone Border Contact Layer, Foam 6x6 Promogran -Other Dressing PROMOGRan/ bordered foam -Primary Dressing Covered/Secured with Dry Gauze & Roll Gauze, Secured with Tape -Promogran 1 1 -Silicone Border Foam 6x6 1 BLE -Multi-Layered Wrap Application Multi-Layer Comp - Bilat ($ ) -Tubular Bandage Single Layer Double Layer -Size of Tubigrip Used Size D Size D -Size D ($) 2 2 -Stockings No -Multi-Layer Compression Bilat (Qty 1 applied) Treatment Response Procedure Tolerated Well Pain Scale: 0-10 Numeric Is Patient Pain Free? Yes Yes Yes WC - Visit Discharge Discharge Condition Stable Stable Stable Ambulatory Status Ambulatory Ambulatory Ambulatory Transportation Private Auto Private Auto Private Auto Accompanied by Medication Reconcilliation completed & No Yes provided to patient/care provider Clinical Summary of Care Provided Yes Yes Notes: pt refused reapplication of 3M bilaterally. Pt states the wraps were so tight and I could not sleep at night. Isabel Beck packaging manager consulted and she stated to go back to orginal orders which was bilateral tubigrip Additional Wound Wound debrided: Right foot Type of Debridement: Selective debridement Anesthesia Used: 5% Lidocaine Gel Depth: Down to and including healthy tissue Percentage of wound debrided: 100 Instrument Used: 3mm curette Tissue Removed: Devitalized tissue Severity: Limited To Skin Breakdown Amount of bleeding with debridement: None Patient tolerated procedure: Patient tolerated procedure well Assessment/Plan Assessment/Plan (1) Ulcer of right lower extremity with fat layer exposed: CODE(S): L97.912 - Non-pressure chronic ulcer of unspecified part of right lower leg with fat layer exposed (2) Ulcer of right foot with fat layer exposed: CODE(S): L97.512 - Non-pressure chronic ulcer of other part of right foot with fat layer exposed (3) Ulcer of left foot with fat layer exposed: CODE(S): L97.522 - Non-pressure chronic ulcer of other part of left foot with fat layer exposed (4) PAD (peripheral artery disease): CODE(S): I73.9 - Peripheral vascular disease, unspecified (5) PAF (paroxysmal atrial fibrillation): CODE(S): I48.0 - Paroxysmal atrial fibrillation (6) Type 2 diabetes mellitus: CODE(S): E11.9 - Type 2 diabetes mellitus without complications (7) Chronic kidney disease, stage 3b: CODE(S): N18.32 - Chronic kidney disease, stage 3b (8) Ulcer of left lower extremity with fat layer exposed: CODE(S): L97.922 - Non-pressure chronic ulcer of unspecified part of left lower leg with fat layer exposed PLAN: Plan Debridement done as documented above, procedure was well-tolerated. As above, did not re apply 3M after it was taken off. Significant improvement noted with the 3M wrap but she insists she does not want it back. Again worsening edema is noted, she states she will use Tubigrips instead. She also states that she has Circaids at home as well as other compression stockings. She was advised to bring it to her next visit. For now, continue Promogran to all open areas. Adaptic and foam dressing to foot for offloading/protection. Moisturize adequately. Patient and voiced understanding. Continue diuretic management per PCP. Leg elevation discussed and exercise as tolerated. Optimal diabetes control recommended. Optimal dietary intake. Their questions were answered, they were advised to let us know if he had any further questions or concerns. Follow-up in a week for courtesy visit. This note was generated with [employer] dictation software. It may contain incorrect words, spelling, and punctuation that were not noted in checking the note before signing.
--- NOTE | 2025-04-13 10:37 | WC ---
PHOTO-RIGHT RAMIREZ 04/11/25
[2025-04-19 10:10] VITALS: BP 146/77; PULSE 89; RESP 16; TEMP 36.4
--- NOTE | 2025-04-20 10:27 | WC ---
PHOTO-RIGHT RAMIREZ 04/19/25
--- NOTE | 2025-04-20 10:30 | WC ---
PHOTO-RIGHT RAMIREZ 04/19/25
--- NOTE | 2025-04-23 10:18 | PCM.WC.HP ---
History of Present Illness Date of Service: 04/19/25 Chief Complaint: Bilateral lower extremity ulcers History of Wound: This is a courtesy visit for Dr. Cerrato, the patient's established Wound Center physician. Patient's history is as previously documented below: Ms. Yates is a 79-year-old who was referred to the wound center by her PCP due to nonhealing bilateral lower extremity ulceration. Said to have started months ago during a prolonged hospitalization in [place]. Bilateral foot/heel and right kaur. She has been applying Neosporin without any significant improvement. She reports a history of vascular surgery in [place]. 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 No significant tobacco use, smoked for about 6 months quit over 50 years ago. She reports a history of "borderline diabetes". Currently not on medication. Appetite is fair, concern for recent significant weight loss.. Otherwise, she states that she feels well." [facility] Medical History Ulcer of left lower extremity with fat layer exposed Anemia of chronic renal failure, stage 3 (moderate) Iron deficiency anemia due to chronic blood loss History of ESBL E. coli infection Type 2 diabetes mellitus Ulcer of left foot with fat layer exposed Ulcer of right foot with fat layer exposed Ulcer of right lower extremity with fat layer exposed Acute on chronic heart failure with preserved ejection fraction Hypokalemia Fatigue Vitamin D deficiency Rheumatoid arthritis Insomnia Mitral valve regurgitation Tachy-lionel syndrome Rheumatic fever GERD (gastroesophageal reflux disease) Chronic renal failure (CRF), stage 3b Cervical cancer Iron deficiency anemia Non-sustained ventricular tachycardia Pulmonary hypertension Rectal bleed Presence of Watchman left atrial appendage closure device Pacemaker Sinus node dysfunction Bradycardia History of cardioversion MONIQUE (acute kidney injury) Skin tear of left forearm without complication Skin cancer Cardiac arrhythmia CHF exacerbation Brain aneurysm Anxiety Family history of brain aneurysm PAD (peripheral artery disease) PAF (paroxysmal atrial fibrillation) Obesity (BMI 30.0-34.9) Laceration of right middle finger Heart disease Diabetes History of cancer Fever HTN (hypertension) Diabetes mellitus type 2 in obese Chest pain, musculoskeletal HLD (hyperlipidemia) URI (upper respiratory infection) Bronchospasm with bronchitis, acute Home Medications Medication Instructions Recorded Last Taken Type atorvastatin 40 mg tablet 40 mg PO DAILY daily 01/07/25 Unknown History bumetanide 2 mg tablet 2 mg PO BID #60 tabs 01/08/25 Unknown Rx metoprolol succinate 50 mg 50 mg PO BID 02/05/25 Unknown History tablet,extended release 24 hr vitamin B complex 1 tab PO QDAY 02/05/25 Unknown History ascorbic acid (vitamin C) 500 mg 500 mg PO QDAY 02/14/25 Unknown History tablet aspirin 81 mg tablet,delayed 81 mg PO QDAY 02/14/25 Unknown History release (Adult Aspirin Regimen) metolazone 5 mg tablet 5 mg PO QDAY PRN edema 02/14/25 Unknown History pantoprazole 40 mg tablet,delayed 40 mg PO QDAY stomach 02/14/25 Unknown History release polysaccharide iron complex 150 mg 150 mg PO QDAY 02/14/25 Unknown History iron capsule (Ferrex) potassium chloride 10 mEq 10 meq PO QDAY 02/14/25 Unknown History tablet,extended release(part/cryst) spironolactone 25 mg tablet 12.5 mg PO BID daily 02/14/25 Unknown History levothyroxine 50 mcg tablet 50 mcg PO DAILY 03/01/25 Unknown History mirtazapine 7.5 mg tablet 7.5 mg PO QHS 03/01/25 Unknown History cephalexin 500 mg capsule 500 mg PO BID 04/05/25 Unknown History doxycycline hyclate 100 mg tablet 100 mg PO BID 04/05/25 Unknown History Allergy/AdvReac Type Severity Reaction Status Date / Time propofol AdvReac Mild Low blood Verified 03/27/25 14:12 pressure Family History Father Heart disease High cholesterol Myocardial infarction, Onset Age: 58 Mother Heart disease Surgical History Hx of abdominal surgery History of mastoidectomy History of cardiac radiofrequency ablation history skin cancer surgery history bilateral ear surgeries History of hysterectomy H/O aortic valve replacement Social History household members: spouse number of children: 1 current occupational status: 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 Smoking Status: Former smoker Tobacco: How many years used: 1 alcohol intake: current alcohol intake frequency: holidays/special occasions only Alcohol type: wine substance use type: does not use Physical Exam Const alert, oriented x3 and no apparent distress General Appearance: cooperative, well kempt and well developed Orientation / Consciousness: awake, oriented to person, oriented to place and oriented to time Exam Limitations: no limitations HEENT normocephalic and head/scalp atraumatic Head and Scalp: normal to inspection Face and Sinus: normal facial exam Nose: external nose normal External Ear: external ears normal Eyes EOMs intact bilaterally Neck full ROM General: normal visual inspection Resp normal respiratory effort, normal air movement, no retractions and no use of accessory muscles Effort and Inspection: able to speak in complete sentences Skin Wounds: wounds noted size Size: See clinical note, bed with slough, margins well approximated, no odor, open and surrounding erythema Wound Narrative: The ulceration on the patient's right heel appears to be nearly healed. At present, it appears as a superficial fissure, extending only into the dermal layers. The ulceration on the right pretibial surface is quite small. Dimensions are documented elsewhere. The ulceration is full-thickness, extending through all layers of the dermis and into the subcutaneous tissues. Ulcer margins are well beveled. There is no sign of infection or cellulitis. Small amount of bioburden and slough. No significant swelling or edema are noted. Neuro oriented x3, CN's II-XII intact bilaterally, moves all extremities and no focal motor deficits Sensorium / Orientation: awake, alert, oriented to person, oriented to place and oriented to time Speech: speech normal Psych mental status grossly normal, thought process normal, cooperative and affect normal Debridement Note Debridement Note Wound debrided: Right kaur Laterality: Right Type of Debridement: Excisional debridement Anesthesia Used: 5% Lidocaine Gel Depth: Down to and including healthy tissue and in the subcutaneous layer Percentage of wound debrided: 100 Instrument Used: 3mm curette Tissue Removed: Bioburden and slough Severity: Fat Layer Exposed Amount of bleeding with debridement: Mild Bleeding Controlled with: Compression and gauze Patient tolerated procedure: Patient tolerated procedure well Post-Debridement Measurements and Additional Note: Post-Debridement Measurements/Treatment YANY - Nurse 1 - General Ulcer Assessment Start: 04/05/25 11:27 Freq: Status: Active Protocol: TOMASZ Activity Type Activity Date Activity User E-sign Co-sign Detail Recorded Client Recorded Date Recorded By Document 04/05/25 11:51 LINDSAY [id number] 04/05/25 12:26 LINDSAY Document 04/09/25 11:52 RB [id number] 04/09/25 12:00 RB Document 04/12/25 11:32 [id number] 04/12/25 11:39 GM Document 04/19/25 10:10 JM [id number] 04/19/25 10:37 04/05/25 04/09/25 04/12/25 11:51 11:52 11:32 - Today's Visit Information Type of service Follow-up Visit Nurse-only Follow-up Visit (Physician/NATURAL HISTORY COLLECTIONS CURATOR Visit (Physician/NATURAL HISTORY COLLECTIONS CURATOR ) ) Arrival Mode Ambulatory Ambulatory Ambulatory Transfer Assistance None None None Accompanied by Patient Identification Verified (Name & Yes Yes Yes ) Patient Requires Transmission-Based No No Precautions Safety Precautions Fall Prevention Vital Signs Temperature (97.8 F-99.1 F) 97 F L 98.1 F Temperature Source Temporal Temporal Pulse Rate (60-100) 91 89 Pulse Location Monitor Monitor Respiratory Rate (12-18) 18 16 Respiratory rate source Observation Observation Oxygen Delivery Method Room Air Blood Pressure (90/60-120/80) 149/53 H 147/86 H Blood Pressure Mean 85 106 Source Monitor Monitor Position Semi-Fowlers Sitting Blood Pressure Location Left Arm Left Arm History Since Last Visit- (Skip if this is Patient's initial visit) Have you changed medications since your Yes No last visit? Any new allergies or adverse reactions No No Had a fall/change in ADL's that may No No increase risk of falls Signs or symptoms of abuse and/or No No neglect since last visit Have you been in the hospital since your No No last visit? Has dressing in place as prescribed Yes Yes Has compression in place as prescribed No No Has offloadiing in place as prescribed N/A N/A Experienced any changes in pain level or No No management Left Footwear Regular Shoe Regular Shoe Regular Shoe Right Footwear Regular Shoe Regular Shoe Regular Shoe Pain Scale: 0-10 Numeric Is Patient Pain Free? Yes Yes Yes 04/19/25 10:10 - Today's Visit Information Type of service Follow-up Visit (Physician/NATURAL HISTORY COLLECTIONS CURATOR ) Arrival Mode Ambulatory Transfer Assistance Accompanied by Patient Identification Verified (Name & Yes ) Patient Requires Transmission-Based No Precautions Safety Precautions Fall Prevention Vital Signs Temperature (97.8 F-99.1 F) 97.6 F L Temperature Source Temporal Pulse Rate (60-100) 89 Pulse Location Monitor Respiratory Rate (12-18) 16 Respiratory rate source Observation Oxygen Delivery Method Room Air Blood Pressure (90/60-120/80) 146/77 H Blood Pressure Mean 100 Source Monitor Position Sitting Blood Pressure Location Right Arm History Since Last Visit- (Skip if this is Patient's initial visit) Have you changed medications since your No last visit? Any new allergies or adverse reactions No Had a fall/change in ADL's that may No increase risk of falls Signs or symptoms of abuse and/or No neglect since last visit Have you been in the hospital since your No last visit? Has dressing in place as prescribed Yes Has compression in place as prescribed No Has offloadiing in place as prescribed N/A Experienced any changes in pain level or No management Left Footwear Regular Shoe Right Footwear Regular Shoe Pain Scale: 0-10 Numeric Is Patient Pain Free? Yes WC - Nurse 1 - General Ulcer Measurement Start: 04/05/25 11:27 Freq: Status: Active Protocol: Activity Type Activity Date Activity User E-sign Co-sign Detail Recorded Client Recorded Date Recorded By Document 04/05/25 11:51 [id number] 04/05/25 12:26 Document 04/09/25 11:52 [id number] 04/09/25 12:00 RB Document 04/12/25 11:32 [id number] 04/12/25 11:39 Document 04/19/25 10:10 [id number] 04/19/25 10:37 04/05/25 04/09/25 04/12/25 11:51 11:52 11:32 Wound Center Nurse 1 #6 Right inferior kaur -Combined with other wound No #5 LT KAUR -Combined with other wound No -Current Size (cm) - Length 0.3 -Current Size (cm) - Width 0.3 -Current Size (cm) - Depth 0.1 -Total Square Cm 0.09 -Photo Taken No -Tunneling No -Undermining/Tunneling No -Circular Undermining No -Exudate Amt None Present -Wound Margin Distinct, Outline Attached -Granulation Amt Medium (34-66%) -Granulation Quality Pale,[place] -Slough/Fibrin Yes -Necrosis Amt Large (67-100%) -Necrotic Tissue Type Adherent Slough -Texture (Violet-wound Skin Appearance) Assessed -Moisture (Violet-wound Skin Appearance) Assessed, Weeping -Color (Violet-wound Skin Appearance) Assessed -Temperature (Violet-wound Skin No Abnormality Appearance) (Pt Warm) -Tenderness on Palpation (Violet-wound No Skin Appearance) -Ulcer Cleansing Soap and Water -Foul Odor after Cleansing No -Anesthetic Used 5% Lidocaine Gel #3 LT HEEL -Combined with other wound No -Current Size (cm) - Length 0.1 0.1 -Current Size (cm) - Width 0.1 0.1 -Current Size (cm) - Depth 0.1 0.1 -Total Square Cm 0.01 0.01 -Photo Taken No No -Epithelialization Large 67-100% -Tunneling No No -Undermining/Tunneling No No -Circular Undermining No No -Exudate Amt None Present None Present -Wound Margin Distinct, Distinct, Outline Outline Attached Attached -Granulation Amt None Present (0 %) -Necrosis Amt None Present (0 %) -Texture (Violet-wound Skin Appearance) Assessed,Callus -Moisture (Violet-wound Skin Appearance) Assessed -Color (Violet-wound Skin Appearance) Assessed -Temperature (Violet-wound Skin No Abnormality Appearance) (Pt Warm) -Tenderness on Palpation (Violet-wound No Skin Appearance) -Ulcer Cleansing Soap and Water -Foul Odor after Cleansing No -Anesthetic Used 5% Lidocaine Gel #2 RT HEEL -Combined with other wound No -Current Size (cm) - Length 0.2 0.1 -Current Size (cm) - Width 1 0.1 -Current Size (cm) - Depth 0.1 0.1 -Total Square Cm 0.2 0.01 -Date of Last Picture (Recall this field) -Photo Taken No No -Epithelialization Large 67-100% -Tunneling No No -Undermining/Tunneling No No -Circular Undermining No No -Exudate Amt Small None Present -Exudate Type Serosanguineous -Wound Margin Distinct, Outline Attached -Granulation Amt None Present (0 None Present (0 %) %) -Granulation Quality -Slough/Fibrin Yes -Necrosis Amt Large (67-100%) -Necrotic Tissue Type Adherent Slough -Texture (Violet-wound Skin Appearance) Assessed Assessed -Moisture (Violet-wound Skin Appearance) Assessed Assessed -Color (Violet-wound Skin Appearance) Assessed Assessed -Temperature (Violet-wound Skin No Abnormality No Abnormality Appearance) (Pt Warm) (Pt Warm) -Tenderness on Palpation (Violet-wound Yes No Skin Appearance) -Ulcer Cleansing Soap and Water -Foul Odor after Cleansing No -Anesthetic Used 5% Lidocaine Gel #1 RT KAUR CLUSTER Superior -Combined with other wound No -Current Size (cm) - Length 8.1 0.4 -Current Size (cm) - Width 5.7 0.5 -Current Size (cm) - Depth 0.1 0.1 -Total Square Cm 46.17 0.20 -Date of Last Picture (Recall this 04/12/25 field) -Photo Taken No Yes -Epithelialization None Present -Tunneling No No -Undermining/Tunneling No No -Circular Undermining No No -Exudate Amt Small Small -Exudate Type Serous Yellow/Green -Wound Margin Distinct, Distinct, Outline Outline Attached Attached -Granulation Amt Medium (34-66%) Small (1-33%) -Granulation Quality [place] -Slough/Fibrin Yes No -Necrosis Amt Small (1-33%) None Present (0 %) -Necrotic Tissue Type Adherent Slough -Texture (Violet-wound Skin Appearance) Assessed Assessed -Moisture (Violet-wound Skin Appearance) Assessed Assessed -Color (Violet-wound Skin Appearance) Assessed Assessed -Temperature (Violet-wound Skin No Abnormality No Abnormality Appearance) (Pt Warm) (Pt Warm) -Tenderness on Palpation (Violet-wound Yes No Skin Appearance) -Ulcer Cleansing Rinsed/ Irrigated with Saline -Foul Odor after Cleansing No No -Anesthetic Used 5% Lidocaine 5% Lidocaine Gel Gel Lower Limb Edema Present Yes Right Calf (cm) 29.5 Right Ankle (cm) 18.2 Left Calf (cm) 31.2 Left Ankle (cm) 18.5 04/19/25 10:10 Wound Center Nurse 1 #6 Right inferior kaur -Combined with other wound #5 LT KAUR -Combined with other wound No -Current Size (cm) - Length 0 -Current Size (cm) - Width 0 -Current Size (cm) - Depth 0 -Total Square Cm 0 -Photo Taken -Tunneling -Undermining/Tunneling -Circular Undermining -Exudate Amt -Wound Margin -Granulation Amt -Granulation Quality -Slough/Fibrin -Necrosis Amt -Necrotic Tissue Type -Texture (Violet-wound Skin Appearance) -Moisture (Violet-wound Skin Appearance) -Color (Violet-wound Skin Appearance) -Temperature (Violet-wound Skin Appearance) -Tenderness on Palpation (Violet-wound Skin Appearance) -Ulcer Cleansing -Foul Odor after Cleansing -Anesthetic Used #3 LT HEEL -Combined with other wound No -Current Size (cm) - Length 0 -Current Size (cm) - Width 0 -Current Size (cm) - Depth 0 -Total Square Cm 0 -Photo Taken -Epithelialization -Tunneling -Undermining/Tunneling -Circular Undermining -Exudate Amt -Wound Margin -Granulation Amt -Necrosis Amt -Texture (Violet-wound Skin Appearance) -Moisture (Violet-wound Skin Appearance) -Color (Violet-wound Skin Appearance) -Temperature (Violet-wound Skin Appearance) -Tenderness on Palpation (Violet-wound Skin Appearance) -Ulcer Cleansing -Foul Odor after Cleansing -Anesthetic Used #2 RT HEEL -Combined with other wound No -Current Size (cm) - Length 1.4 -Current Size (cm) - Width 0.1 -Current Size (cm) - Depth 0.1 -Total Square Cm 0.14 -Date of Last Picture (Recall this 04/19/25 field) -Photo Taken Yes -Epithelialization -Tunneling No -Undermining/Tunneling No -Circular Undermining No -Exudate Amt None Present -Exudate Type -Wound Margin Distinct, Outline Attached -Granulation Amt Large (67-100%) -Granulation Quality Pale,[place] -Slough/Fibrin No -Necrosis Amt None Present (0 %) -Necrotic Tissue Type -Texture (Violet-wound Skin Appearance) Assessed,Callus -Moisture (Violet-wound Skin Appearance) Assessed,Dry/ Scaly -Color (Violet-wound Skin Appearance) Assessed -Temperature (Violet-wound Skin No Abnormality Appearance) (Pt Warm) -Tenderness on Palpation (Violet-wound No Skin Appearance) -Ulcer Cleansing Soap and Water -Foul Odor after Cleansing No -Anesthetic Used 5% Lidocaine Gel #1 RT KAUR CLUSTER Superior -Combined with other wound No -Current Size (cm) - Length 0.4 -Current Size (cm) - Width 0.4 -Current Size (cm) - Depth 0.1 -Total Square Cm 0.16 -Date of Last Picture (Recall this 04/19/25 field) -Photo Taken Yes -Epithelialization -Tunneling No -Undermining/Tunneling No -Circular Undermining No -Exudate Amt None Present -Exudate Type -Wound Margin Distinct, Outline Attached -Granulation Amt Large (67-100%) -Granulation Quality Pale,[place] -Slough/Fibrin -Necrosis Amt None Present (0 %) -Necrotic Tissue Type -Texture (Violet-wound Skin Appearance) Assessed -Moisture (Violet-wound Skin Appearance) Assessed -Color (Violet-wound Skin Appearance) Assessed -Temperature (Violet-wound Skin No Abnormality Appearance) (Pt Warm) -Tenderness on Palpation (Violet-wound No Skin Appearance) -Ulcer Cleansing Soap and Water -Foul Odor after Cleansing No -Anesthetic Used 5% Lidocaine Gel Lower Limb Edema Present Right Calf (cm) 30 Right Ankle (cm) 20 Left Calf (cm) 30.4 Left Ankle (cm) 21 WC - Nurse 2 - General Ulcer CM Notes Start: 04/05/25 11:27 Freq: Status: Active Protocol: Activity Type Activity Date Activity User E-sign Co-sign Detail Recorded Client Recorded Date Recorded By Document 04/05/25 12:29 [id number] 04/05/25 12:43 Document 04/12/25 11:44 [id number] 04/12/25 11:52 Document 04/19/25 10:44 [id number] 04/19/25 10:56 04/05/25 04/12/25 04/19/25 12:29 11:44 10:44 Wound Center Nurse 2 #6 Right inferior kaur -Time 12:43 -Correct Patient Yes -Correct Side, Site, Position Yes -Correct Procedure Yes -Procedure Performed Yes -Type of Procedure Debridement -Clinical Debridement Subcutaneous -Tissue Removed Subcutaneous -Post Debridement (cm) - Length 1.5 -Post Debridement (cm) - Width 0.4 -Post Debridement (cm) - Depth 0.1 -Total Square (Post) (cm) 0.60 -Area of Debridement (cm) - Length 1.5 -Area of Debridement (cm) - Width 0.4 -Total Square (Area) (cm) 0.60 -Tunneling No -Undermining/Tunneling No -Circular Undermining No -Wound/Ulcer Outcome Not Healed -Ulcer Cleansing Rinsed/ Irrigated with Saline -Foul Odor after Cleansing No -Bioengineered Tissue No -Bleeding Controlled with Pressure -Treatment Response Procedure Tolerated Well -Offloading No -Debridement - Subq, 1st 20sq cm Yes #5 LT KAUR -Time 12:30 11:44 -Correct Patient Yes Yes -Correct Side, Site, Position Yes Yes -Correct Procedure Yes No -Procedure Performed Yes No -Type of Procedure Debridement -Clinical Debridement Subcutaneous -Tissue Removed Subcutaneous -Post Debridement (cm) - Length 0.6 -Post Debridement (cm) - Width 0.4 -Post Debridement (cm) - Depth 0.1 -Total Square (Post) (cm) 0.24 -Area of Debridement (cm) - Length 0.6 -Area of Debridement (cm) - Width 0.4 -Total Square (Area) (cm) 0.24 -Tunneling No -Undermining/Tunneling No -Circular Undermining No -Wound/Ulcer Outcome Not Healed Healed- Epithelialized -Ulcer Cleansing Rinsed/ Not Cleansed Irrigated with Saline -Foul Odor after Cleansing No No -Bioengineered Tissue No No -Bleeding Controlled with Pressure NA -Treatment Response Procedure Tolerated Well -Offloading No -Debridement - Subq, 1st 20sq cm No #4 L POSTERIOR FOOT -Time 12:30 -Correct Patient Yes -Correct Side, Site, Position Yes #3 LT HEEL -Time 12:30 11:45 -Correct Patient Yes Yes -Correct Side, Site, Position Yes Yes -Correct Procedure No No -Procedure Performed No No -Post Debridement (cm) - Length 0.1 -Post Debridement (cm) - Width 0.1 -Post Debridement (cm) - Depth 0.1 -Total Square (Post) (cm) 0.01 -Wound/Ulcer Outcome Not Healed Healed- Epithelialized -Ulcer Cleansing Not Cleansed -Foul Odor after Cleansing No -Bioengineered Tissue No -Bleeding Controlled with NA NA -Offloading No #2 RT HEEL -Time 12:30 11:45 10:45 -Correct Patient Yes Yes Yes -Correct Side, Site, Position Yes Yes Yes -Correct Procedure Yes Yes No -Procedure Performed Yes Yes No -Type of Procedure Debridement Debridement -Clinical Debridement Subcutaneous Subcutaneous -Tissue Removed Subcutaneous Subcutaneous -Post Debridement (cm) - Length 1.1 1.4 0.1 -Post Debridement (cm) - Width 0.2 0.1 0.1 -Post Debridement (cm) - Depth 0.1 0.1 0.1 -Total Square (Post) (cm) 0.22 0.14 0.01 -Area of Debridement (cm) - Length 1.1 1.4 -Area of Debridement (cm) - Width 0.2 0.1 -Total Square (Area) (cm) 0.22 0.14 -Tunneling No No No -Undermining/Tunneling No No No -Circular Undermining No No No -Wound/Ulcer Outcome Not Healed Not Healed Healed- Epithelialized -Ulcer Cleansing Rinsed/ Rinsed/ Rinsed/ Irrigated with Irrigated with Irrigated with Saline Saline Saline -Foul Odor after Cleansing No No No -Bioengineered Tissue No No No -Bleeding Controlled with Pressure Pressure NA -Treatment Response Procedure Procedure Tolerated Well Tolerated Well -Offloading No -Debridement - Subq, 1st 20sq cm No No #1 RT KAUR CLUSTER Superior -Time 12:30 11:45 10:46 -Correct Patient Yes Yes Yes -Correct Side, Site, Position Yes Yes Yes -Correct Procedure Yes Yes Yes -Procedure Performed Yes Yes Yes -Type of Procedure Debridement Debridement Debridement -Clinical Debridement Subcutaneous Subcutaneous Subcutaneous -Tissue Removed Subcutaneous Subcutaneous Subcutaneous -Post Debridement (cm) - Length 2.0 0.4 0.2 -Post Debridement (cm) - Width 3.0 0.4 0.2 -Post Debridement (cm) - Depth 0.1 0.1 0.1 -Total Square (Post) (cm) 6.00 0.16 0.04 -Area of Debridement (cm) - Length 2.0 0.4 0.2 -Area of Debridement (cm) - Width 3.0 0.4 0.2 -Total Square (Area) (cm) 6.00 0.16 0.04 -Tunneling No No No -Undermining/Tunneling No No No -Circular Undermining No No No -Wound/Ulcer Outcome Not Healed Not Healed Not Healed -Ulcer Cleansing Rinsed/ Rinsed/ Rinsed/ Irrigated with Irrigated with Irrigated with Saline Saline Saline -Foul Odor after Cleansing No No No -Bioengineered Tissue No No No -Bleeding Controlled with Pressure Pressure Pressure -Treatment Response Procedure Procedure Procedure Tolerated Well Tolerated Well Tolerated Well -Offloading No No No -Total Non-Weight Bearing to Left Lower Extremity -Debridement - Subq, 1st 20sq cm No Yes Yes Pain Scale: 0-10 Numeric Is Patient Pain Free? Yes Yes Yes WC - Nurse 3 - General Ulcer D/C NN Start: 04/05/25 11:27 Freq: Status: Active Protocol: Activity Type Activity Date Activity User E-sign Co-sign Detail Recorded Client Recorded Date Recorded By Document 04/05/25 12:50 DS [id number] 04/05/25 13:18 DS Document 04/09/25 11:52 RB [id number] 04/09/25 12:00 RB Document 04/12/25 12:14 JF [id number] 04/12/25 12:15 JF Document 04/19/25 11:12 GM [id number] 04/19/25 11:14 GM 04/05/25 04/09/25 04/12/25 12:50 11:52 12:14 Wound Care Center Nurse 3 #6 Right inferior kaur -Ulcer Cleansing Wound Cleanser -Primary Dressing Applied Promogran, Silicone Border Foam 6x6 -Promogran 1 -Silicone Border Foam 6x6 1 #5 LT KAUR -Primary Dressing Applied Promogran Silicone Border Foam AG 3.6x4 -Other Dressing promogrAN -Promogran 0 -Silicone Border Foam AG 3.6x4 1 #3 LT HEEL -Ulcer Cleansing Wound Cleanser -Primary Dressing Applied NonAdherent NonAdherent Contact Layer, Contact Layer, Silicone Border Silicone Border Foam 4x4 Foam AG 3.6x4 -Primary Dressing Covered/Secured with Dry Gauze, Secured with Tape -Silicone Border Foam AG 3.6x4 1 -Silicone Border Foam 4x4 1 #2 RT HEEL -Ulcer Cleansing Wound Cleanser -Foul Odor after Cleansing -Primary Dressing Applied NonAdherent NonAdherent NonAdherent Contact Layer Contact Layer, Contact Layer Silicone Border Foam AG 3.6x4 -Primary Dressing Covered/Secured with Dry Gauze, Dry Gauze, Secured with Secured with Tape Tape -Hydrogel -Silicone Border Foam AG 3.6x4 1 #1 RT KAUR CLUSTER Superior -Ulcer Cleansing Rinsed/ Irrigated with Saline -Foul Odor after Cleansing No -Primary Dressing Applied Promogran, NonAdherent Silicone Border Contact Layer, Foam 6x6 Promogran -Other Dressing PROMOGRan/ bordered foam -Primary Dressing Covered/Secured with Dry Gauze & Roll Gauze, Secured with Tape -Promogran 1 1 -Silicone Border Foam 6x6 1 BLE -Lotion applied to leg before compression wrap -Multi-Layered Wrap Application Multi-Layer Comp - Bilat ($ ) -Tubular Bandage Single Layer Double Layer -Size of Tubigrip Used Size D Size D -Size D ($) 2 2 -Stockings No -Multi-Layer Compression Bilat (Qty 1 applied) Treatment Response Procedure Tolerated Well Pain Scale: 0-10 Numeric Is Patient Pain Free? Yes Yes Yes WC - Visit Discharge Discharge Condition Stable Stable Stable Ambulatory Status Ambulatory Ambulatory Ambulatory Transportation Private Auto Private Auto Private Auto Accompanied by Medication Reconcilliation completed & No Yes provided to patient/care provider Clinical Summary of Care Provided Yes Yes Notes: pt refused reapplication of 3M bilaterally. Pt states the wraps were so tight and I could not sleep at night. Isabel Beck supply chain design manager consulted and she stated to go back to orginal orders which was bilateral tubigrip 04/19/25 11:[facility] Nurse 3 #6 Right inferior kaur -Ulcer Cleansing -Primary Dressing Applied -Promogran -Silicone Border Foam 6x6 #5 LT KAUR -Primary Dressing Applied -Other Dressing -Promogran -Silicone Border Foam AG 3.6x4 #3 LT HEEL -Ulcer Cleansing -Primary Dressing Applied -Primary Dressing Covered/Secured with -Silicone Border Foam AG 3.6x4 -Silicone Border Foam 4x4 #2 RT HEEL -Ulcer Cleansing Not Cleansed -Foul Odor after Cleansing No -Primary Dressing Applied C Hydrogel, NonAdherent Contact Layer -Primary Dressing Covered/Secured with Dry Gauze, Secured with Tape -Hydrogel 1 -Silicone Border Foam AG 3.6x4 #1 RT KAUR CLUSTER Superior -Ulcer Cleansing Not Cleansed -Foul Odor after Cleansing No -Primary Dressing Applied Promogran -Other Dressing -Primary Dressing Covered/Secured with Dry Gauze, Secured with Tape -Promogran 1 -Silicone Border Foam 6x6 BLE -Lotion applied to leg before No compression wrap -Multi-Layered Wrap Application -Tubular Bandage Double Layer -Size of Tubigrip Used Size D -Size D ($) 2 -Stockings -Multi-Layer Compression Bilat (Qty applied) Treatment Response Pain Scale: 0-10 Numeric Is Patient Pain Free? Yes WC - Visit Discharge Discharge Condition Stable Ambulatory Status Ambulatory Transportation Private Auto Accompanied by Medication Reconcilliation completed & provided to patient/care provider Clinical Summary of Care Provided Notes: Charges/Coding Multi Select Codes Visit Charges Office Visit/Consults: 92419 OV L4 New 45 min Integumentary Integumentary CPT Codes: 02076 Etelvina subq tissue 20 sq cm/< Assessment/Plan Assessment/Plan (1) Ulcer of right lower extremity with fat layer exposed: CODE(S): L97.912 - Non-pressure chronic ulcer of unspecified part of right lower leg with fat layer exposed (2) Ulcer of right foot with fat layer exposed: CODE(S): L97.512 - Non-pressure chronic ulcer of other part of right foot with fat layer exposed (3) PAD (peripheral artery disease): CODE(S): I73.9 - Peripheral vascular disease, unspecified (4) PAF (paroxysmal atrial fibrillation): CODE(S): I48.0 - Paroxysmal atrial fibrillation (5) Type 2 diabetes mellitus: CODE(S): E11.9 - Type 2 diabetes mellitus without complications (6) Chronic kidney disease, stage 3b: CODE(S): N18.32 - Chronic kidney disease, stage 3b PLAN: Plan Debridement done as documented above, procedure was well-tolerated. We are to continue the use of Promogran/Adaptic, and a foam dressing to the right pretibial ulceration. Collagen hydrogel, Adaptic, and a foam dressing are to be used on the right heel fissure. The patient indicates that she "sometimes sleeps in a recliner". She has been encouraged to sleep on a flat surface at night, with her legs level with heart level. She is also encouraged to elevate her lower extremities as much as possible, even during daytime hours. Elevation is to be to heart level, or higher. Prolonged idle sitting has been discouraged. Activity/ambulation has been encouraged. Patient has been encouraged to use double Tubigrip compression sleeves to the lower extremities, which are to be donned daily upon awakening. She admits that she has been less than totally compliant with this recommendation. When questioned about CircAid Velcro compression garments, she indicated that she does not possess such garments, despite that the medical record reflects otherwise. The patient is to continue diuretic management per PCP. The patient has been encouraged to optimize her nutritional intake. The patient's questions have been answered. She is to follow-up in [address] Cerrato. Total time: 45 minutes
[2025-05-03 11:15] VITALS: BP 148/81; PULSE 98; RESP 17; TEMP 36.7
--- NOTE | 2025-05-03 13:17 | PCM.WC.PN ---
History of Present Illness Date of Service: 05/03/25 Chief Complaint: Bilateral lower extremity ulcers History of Wound: Ms. Yates is a 79-year-old who was referred to the wound center by her PCP due to nonhealing bilateral lower extremity ulceration. Said to have started months ago during a prolonged hospitalization in [place]. Bilateral foot/heel and right kaur. She has been applying Neosporin without any significant improvement. She reports a history of vascular surgery in [place]. 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 No significant tobacco use, smoked for about 6 months quit over 50 years ago. She reports a history of "borderline diabetes". Currently not on medication. Appetite is fair, concern for recent significant weight loss.. Otherwise, she states that she feels well. Progress of Wound: Last seen 3 weeks ago. stated that to the right kaur area they have not had to put on any dressing in a few weeks. also states that he has been moisturizing adequately using Vaseline. Left foot is healed. Right foot ulcer/fissure remains. Objective Data Objective Data Vital Signs: Vital Signs Temp Pulse Resp BP O2 Del Method 98.1 F 98 17 148/81 H Room Air 05/03/25 11:15 05/03/25 11:15 05/03/25 11:15 05/03/25 11:15 05/03/25 11:15 Oxygen Delivery Method Room Air Charges/Coding Procedures Integumentary 111xxx-113xx: [id number] Etelvina subq tissue 20 sq cm/< (Selective/Superficial debridement done) Physical Exam Const alert, oriented x3 and no apparent distress General Appearance: cooperative, well kempt and well developed HEENT normocephalic and head/scalp atraumatic Eyes EOMs intact bilaterally Neck full ROM General: normal visual inspection Resp normal respiratory effort Effort and Inspection: able to speak in complete sentences Skin Wounds: wounds noted size Size: See clinical note, bed granulating well, margins well approximated, no odor, open and surrounding erythema Neuro oriented x3, CN's II-XII intact bilaterally, moves all extremities and no focal motor deficits Psych mental status grossly normal, thought process normal, cooperative and affect normal Debridement Note Debridement Note Wound debrided: Right foot Type of Debridement: Selective debridement Anesthesia Used: 5% Lidocaine Gel Depth: Down to and including healthy tissue Percentage of wound debrided: 100 Instrument Used: 3mm curette Tissue Removed: Devitalized tissue Severity: Limited To Skin Breakdown Amount of bleeding with debridement: None Patient tolerated procedure: Patient tolerated procedure well Post-Debridement Measurements and Additional Note: Post-Debridement Measurements/Treatment - Nurse 1 - General Ulcer Assessment Start: 04/05/25 11:27 Freq: Status: Active Protocol: [email or web address] Activity Type Activity Date Activity User E-sign Co-sign Detail Recorded Client Recorded Date Recorded By Document 04/05/25 11:51 JM [id number] 04/05/25 12:26 JM Document 04/09/25 11:52 RB [id number] 04/09/25 12:00 RB Document 04/12/25 11:32 GM [id number] 04/12/25 11:39 GM Document 04/19/25 10:10 JM [id number] 04/19/25 10:37 JM Document 05/03/25 11:15 TS [id number] 05/03/25 11:25 TS 04/05/25 04/09/25 04/12/25 11:51 11:52 11:32 - Today's Visit Information Type of service Follow-up Visit Nurse-only Follow-up Visit (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/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 Visit (Physician/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 ) ) Arrival Mode Ambulatory Ambulatory Ambulatory Transfer Assistance None None None Accompanied by Patient Identification Verified (Name & Yes Yes Yes ) Patient Requires Transmission-Based No No Precautions Safety Precautions Fall Prevention Vital Signs Temperature (97.8 F-99.1 F) 97 F L 98.1 F Temperature Source Temporal Temporal Pulse Rate (60-100) 91 89 Pulse Location Monitor Monitor Respiratory Rate (12-18) 18 16 Respiratory rate source Observation Observation Oxygen Delivery Method Room Air Blood Pressure (90/60-120/80) 149/53 H 147/86 H Blood Pressure Mean (mm Hg) 85 106 Source Monitor Monitor Position Semi-Fowlers Sitting Blood Pressure Location Left Arm Left Arm History Since Last Visit- (Skip if this is Patient's initial visit) Have you changed medications since your Yes No last visit? Any new allergies or adverse reactions No No Had a fall/change in ADL's that may No No increase risk of falls Signs or symptoms of abuse and/or No No neglect since last visit Have you been in the hospital since your No No last visit? Has dressing in place as prescribed Yes Yes Has compression in place as prescribed No No Has offloadiing in place as prescribed N/A N/A Experienced any changes in pain level or No No management Left Footwear Regular Shoe Regular Shoe Regular Shoe Right Footwear Regular Shoe Regular Shoe Regular Shoe Pain Scale: 0-10 Numeric Is Patient Pain Free? Yes Yes Yes 04/19/25 05/03/25 10:10 11:15 - Today's Visit Information Type of service Follow-up Visit Follow-up Visit (Physician/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 (Physician/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 ) ) Arrival Mode Ambulatory Ambulatory Transfer Assistance Accompanied by Patient Identification Verified (Name & Yes Yes ) Patient Requires Transmission-Based No No Precautions Safety Precautions Fall Prevention Fall Prevention Vital Signs Temperature (97.8 F-99.1 F) 97.6 F L 98.1 F Temperature Source Temporal Temporal Pulse Rate (60-100) 89 98 Pulse Location Monitor Monitor Respiratory Rate (12-18) 16 17 Respiratory rate source Observation Observation Oxygen Delivery Method Room Air Room Air Blood Pressure (90/60-120/80) 146/77 H 148/81 H Blood Pressure Mean (mm Hg) 100 103 Source Monitor Monitor Position Sitting Sitting Blood Pressure Location Right Arm Right Arm History Since Last Visit- (Skip if this is Patient's initial visit) Have you changed medications since your No No last visit? Any new allergies or adverse reactions No No Had a fall/change in ADL's that may No No increase risk of falls Signs or symptoms of abuse and/or No No neglect since last visit Have you been in the hospital since your No No last visit? Has dressing in place as prescribed Yes Yes Has compression in place as prescribed No N/A Has offloadiing in place as prescribed N/A N/A Experienced any changes in pain level or No No management Left Footwear Regular Shoe Regular Shoe Right Footwear Regular Shoe Regular Shoe Pain Scale: 0-10 Numeric Is Patient Pain Free? Yes Yes - Nurse 1 - General Ulcer Measurement Start: 04/05/25 11:27 Freq: Status: Active Protocol: Activity Type Activity Date Activity User E-sign Co-sign Detail Recorded Client Recorded Date Recorded By Document 04/05/25 11:51 [email or web address] [id number] 04/05/25 12:26 JM Document 04/09/25 11:52 RB [id number] 04/09/25 12:00 RB Document 04/12/25 11:32 [id number] 04/12/25 11:39 Document 04/19/25 10:10 JM [id number] 04/19/25 10:37 JM Document 05/03/25 11:15 TS [id number] 05/03/25 11:25 TS 04/05/25 04/09/25 04/12/25 11:51 11:52 11:32 Wound Center Nurse 1 #6 Right inferior kaur -Combined with other wound No #5 LT KAUR -Combined with other wound No -Current Size (cm) - Length 0.3 -Current Size (cm) - Width 0.3 -Current Size (cm) - Depth 0.1 -Total Square Cm 0.09 -Photo Taken No -Tunneling No -Undermining/Tunneling No -Circular Undermining No -Exudate Amt None Present -Wound Margin Distinct, Outline Attached -Granulation Amt Medium (34-66%) -Granulation Quality Pale,[place] -Slough/Fibrin Yes -Necrosis Amt Large (67-100%) -Necrotic Tissue Type Adherent Slough -Texture (Violet-wound Skin Appearance) Assessed -Moisture (Violet-wound Skin Appearance) Assessed, Weeping -Color (Violet-wound Skin Appearance) Assessed -Temperature (Violet-wound Skin No Abnormality Appearance) (Pt Warm) -Tenderness on Palpation (Violet-wound No Skin Appearance) -Ulcer Cleansing Soap and Water -Foul Odor after Cleansing No -Anesthetic Used 5% Lidocaine Gel #3 LT HEEL -Combined with other wound No -Current Size (cm) - Length 0.1 0.1 -Current Size (cm) - Width 0.1 0.1 -Current Size (cm) - Depth 0.1 0.1 -Total Square Cm 0.01 0.01 -Photo Taken No No -Epithelialization Large 67-100% -Tunneling No No -Undermining/Tunneling No No -Circular Undermining No No -Exudate Amt None Present None Present -Wound Margin Distinct, Distinct, Outline Outline Attached Attached -Granulation Amt None Present (0 %) -Necrosis Amt None Present (0 %) -Texture (Violet-wound Skin Appearance) Assessed,Callus -Moisture (Violet-wound Skin Appearance) Assessed -Color (Violet-wound Skin Appearance) Assessed -Temperature (Violet-wound Skin No Abnormality Appearance) (Pt Warm) -Tenderness on Palpation (Violet-wound No Skin Appearance) -Ulcer Cleansing Soap and Water -Foul Odor after Cleansing No -Anesthetic Used 5% Lidocaine Gel #2 RT HEEL -Combined with other wound No -Current Size (cm) - Length 0.2 0.1 -Current Size (cm) - Width 1 0.1 -Current Size (cm) - Depth 0.1 0.1 -Total Square Cm 0.2 0.01 -Date of Last Picture (Recall this field) -Photo Taken No No -Epithelialization Large 67-100% -Tunneling No No -Undermining/Tunneling No No -Circular Undermining No No -Exudate Amt Small None Present -Exudate Type Serosanguineous -Wound Margin Distinct, Outline Attached -Granulation Amt None Present (0 None Present (0 %) %) -Granulation Quality -Slough/Fibrin Yes -Necrosis Amt Large (67-100%) -Necrotic Tissue Type Adherent Slough -Structure Exposed -Texture (Violet-wound Skin Appearance) Assessed Assessed -Moisture (Violet-wound Skin Appearance) Assessed Assessed -Color (Violet-wound Skin Appearance) Assessed Assessed -Temperature (Violet-wound Skin No Abnormality No Abnormality Appearance) (Pt Warm) (Pt Warm) -Tenderness on Palpation (Violet-wound Yes No Skin Appearance) -Ulcer Cleansing Soap and Water -Foul Odor after Cleansing No -Anesthetic Used 5% Lidocaine Gel #1 RT KAUR CLUSTER Superior -Combined with other wound No -Current Size (cm) - Length 8.1 0.4 -Current Size (cm) - Width 5.7 0.5 -Current Size (cm) - Depth 0.1 0.1 -Total Square Cm 46.17 0.20 -Date of Last Picture (Recall this 04/12/25 field) -Photo Taken No Yes -Epithelialization None Present -Tunneling No No -Undermining/Tunneling No No -Circular Undermining No No -Exudate Amt Small Small -Exudate Type Serous Yellow/Green -Wound Margin Distinct, Distinct, Outline Outline Attached Attached -Granulation Amt Medium (34-66%) Small (1-33%) -Granulation Quality [place] -Slough/Fibrin Yes No -Necrosis Amt Small (1-33%) None Present (0 %) -Necrotic Tissue Type Adherent Slough -Structure Exposed -Texture (Violet-wound Skin Appearance) Assessed Assessed -Moisture (Violet-wound Skin Appearance) Assessed Assessed -Color (Violet-wound Skin Appearance) Assessed Assessed -Temperature (Violet-wound Skin No Abnormality No Abnormality Appearance) (Pt Warm) (Pt Warm) -Tenderness on Palpation (Violet-wound Yes No Skin Appearance) -Ulcer Cleansing Rinsed/ Irrigated with Saline -Foul Odor after Cleansing No No -Anesthetic Used 5% Lidocaine 5% Lidocaine Gel Gel Lower Limb Edema Present Yes Right Calf (cm) 29.5 Right Ankle (cm) 18.2 Left Calf (cm) 31.2 Left Ankle (cm) 18.5 04/19/25 05/03/25 10:10 11:15 Wound Center Nurse 1 #6 Right inferior kaur -Combined with other wound #5 LT KAUR -Combined with other wound No -Current Size (cm) - Length 0 -Current Size (cm) - Width 0 -Current Size (cm) - Depth 0 -Total Square Cm 0 -Photo Taken -Tunneling -Undermining/Tunneling -Circular Undermining -Exudate Amt -Wound Margin -Granulation Amt -Granulation Quality -Slough/Fibrin -Necrosis Amt -Necrotic Tissue Type -Texture (Violet-wound Skin Appearance) -Moisture (Violet-wound Skin Appearance) -Color (Violet-wound Skin Appearance) -Temperature (Violet-wound Skin Appearance) -Tenderness on Palpation (Viloet-wound Skin Appearance) -Ulcer Cleansing -Foul Odor after Cleansing -Anesthetic Used #3 LT HEEL -Combined with other wound No -Current Size (cm) - Length 0 -Current Size (cm) - Width 0 -Current Size (cm) - Depth 0 -Total Square Cm 0 -Photo Taken -Epithelialization -Tunneling -Undermining/Tunneling -Circular Undermining -Exudate Amt -Wound Margin -Granulation Amt -Necrosis Amt -Texture (Violet-wound Skin Appearance) -Moisture (Violet-wound Skin Appearance) -Color (Violet-wound Skin Appearance) -Temperature (Violet-wound Skin Appearance) -Tenderness on Palpation (Violet-wound Skin Appearance) -Ulcer Cleansing -Foul Odor after Cleansing -Anesthetic Used #2 RT HEEL -Combined with other wound No No -Current Size (cm) - Length 1.4 0.1 -Current Size (cm) - Width 0.1 0.1 -Current Size (cm) - Depth 0.1 0.1 -Total Square Cm 0.14 0.01 -Date of Last Picture (Recall this 10/16/25 10/30/25 field) -Photo Taken Yes Yes -Epithelialization Large 67-100% -Tunneling No No -Undermining/Tunneling No No -Circular Undermining No No -Exudate Amt None Present None Present -Exudate Type -Wound Margin Distinct, Distinct, Outline Outline Attached Attached -Granulation Amt Large (67-100%) Large (67-100%) -Granulation Quality Pale,[place] Pale,Red -Slough/Fibrin No No -Necrosis Amt None Present (0 None Present (0 %) %) -Necrotic Tissue Type Adherent Slough -Structure Exposed None/Limited to Skin Breakdown -Texture (Violet-wound Skin Appearance) Assessed,Callus Assessed -Moisture (Violet-wound Skin Appearance) Assessed,Dry/ Assessed Scaly -Color (Violet-wound Skin Appearance) Assessed Assessed -Temperature (Violet-wound Skin No Abnormality No Abnormality Appearance) (Pt Warm) (Pt Warm) -Tenderness on Palpation (Violet-wound No No Skin Appearance) -Ulcer Cleansing Soap and Water Rinsed/ Irrigated with Saline -Foul Odor after Cleansing No No -Anesthetic Used 5% Lidocaine 5% Lidocaine Gel Gel #1 RT KAUR CLUSTER Superior -Combined with other wound No No -Current Size (cm) - Length 0.4 -Current Size (cm) - Width 0.4 -Current Size (cm) - Depth 0.1 -Total Square Cm 0.16 -Date of Last Picture (Recall this 04/19/25 field) -Photo Taken Yes -Epithelialization -Tunneling No No -Undermining/Tunneling No No -Circular Undermining No -Exudate Amt None Present None Present -Exudate Type -Wound Margin Distinct, Indistinct, Non Outline -Visible Attached -Granulation Amt Large (67-100%) -Granulation Quality Pale,[place] -Slough/Fibrin No -Necrosis Amt None Present (0 None Present (0 %) %) -Necrotic Tissue Type Adherent Slough -Structure Exposed None/Limited to Skin Breakdown -Texture (Violet-wound Skin Appearance) Assessed Assessed -Moisture (Violet-wound Skin Appearance) Assessed Assessed -Color (Violet-wound Skin Appearance) Assessed Assessed -Temperature (Violet-wound Skin No Abnormality No Abnormality Appearance) (Pt Warm) (Pt Warm) -Tenderness on Palpation (Violet-wound No No Skin Appearance) -Ulcer Cleansing Soap and Water Rinsed/ Irrigated with Saline -Foul Odor after Cleansing No No -Anesthetic Used 5% Lidocaine Gel Lower Limb Edema Present Right Calf (cm) 30 Right Ankle (cm) 20 Left Calf (cm) 30.4 Left Ankle (cm) 21 WC - Nurse 2 - General Ulcer CM Notes Start: 04/05/25 11:27 Freq: Status: Active Protocol: Activity Type Activity Date Activity User E-sign Co-sign Detail Recorded Client Recorded Date Recorded By Document 04/05/25 12:29 GM [id number] 04/05/25 12:43 GM Document 04/12/25 11:44 GM [id number] 04/12/25 11:52 GM Document 04/19/25 10:44 GM [id number] 04/19/25 10:56 GM Document 05/03/25 11:50 GM [id number] 05/03/25 11:59 GM 04/05/25 04/12/25 04/19/25 12:29 11:44 10:44 Wound Center Nurse 2 #6 Right inferior kaur -Time 12:43 -Correct Patient Yes -Correct Side, Site, Position Yes -Correct Procedure Yes -Procedure Performed Yes -Type of Procedure Debridement -Clinical Debridement Subcutaneous -Tissue Removed Subcutaneous -Post Debridement (cm) - Length 1.5 -Post Debridement (cm) - Width 0.4 -Post Debridement (cm) - Depth 0.1 -Total Square (Post) (cm) 0.60 -Area of Debridement (cm) - Length 1.5 -Area of Debridement (cm) - Width 0.4 -Total Square (Area) (cm) 0.60 -Tunneling No -Undermining/Tunneling No -Circular Undermining No -Wound/Ulcer Outcome Not Healed -Ulcer Cleansing Rinsed/ Irrigated with Saline -Foul Odor after Cleansing No -Bioengineered Tissue No -Bleeding Controlled with Pressure -Treatment Response Procedure Tolerated Well -Offloading No -Debridement - Subq, 1st 20sq cm Yes #5 LT KAUR -Time 12:30 11:44 -Correct Patient Yes Yes -Correct Side, Site, Position Yes Yes -Correct Procedure Yes No -Procedure Performed Yes No -Type of Procedure Debridement -Clinical Debridement Subcutaneous -Tissue Removed Subcutaneous -Post Debridement (cm) - Length 0.6 -Post Debridement (cm) - Width 0.4 -Post Debridement (cm) - Depth 0.1 -Total Square (Post) (cm) 0.24 -Area of Debridement (cm) - Length 0.6 -Area of Debridement (cm) - Width 0.4 -Total Square (Area) (cm) 0.24 -Tunneling No -Undermining/Tunneling No -Circular Undermining No -Wound/Ulcer Outcome Not Healed Healed- Epithelialized -Ulcer Cleansing Rinsed/ Not Cleansed Irrigated with Saline -Foul Odor after Cleansing No No -Bioengineered Tissue No No -Bleeding Controlled with Pressure NA -Treatment Response Procedure Tolerated Well -Offloading No -Debridement - Subq, 1st 20sq cm No #4 L POSTERIOR FOOT -Time 12:30 -Correct Patient Yes -Correct Side, Site, Position Yes #3 LT HEEL -Time 12:30 11:45 -Correct Patient Yes Yes -Correct Side, Site, Position Yes Yes -Correct Procedure No No -Procedure Performed No No -Post Debridement (cm) - Length 0.1 -Post Debridement (cm) - Width 0.1 -Post Debridement (cm) - Depth 0.1 -Total Square (Post) (cm) 0.01 -Wound/Ulcer Outcome Not Healed Healed- Epithelialized -Ulcer Cleansing Not Cleansed -Foul Odor after Cleansing No -Bioengineered Tissue No -Bleeding Controlled with NA NA -Offloading No #2 RT HEEL -Time 12:30 11:45 10:45 -Correct Patient Yes Yes Yes -Correct Side, Site, Position Yes Yes Yes -Correct Procedure Yes Yes No -Procedure Performed Yes Yes No -Type of Procedure Debridement Debridement -Clinical Debridement Subcutaneous Subcutaneous -Tissue Removed Subcutaneous Subcutaneous -Post Debridement (cm) - Length 1.1 1.4 0.1 -Post Debridement (cm) - Width 0.2 0.1 0.1 -Post Debridement (cm) - Depth 0.1 0.1 0.1 -Total Square (Post) (cm) 0.22 0.14 0.01 -Area of Debridement (cm) - Length 1.1 1.4 -Area of Debridement (cm) - Width 0.2 0.1 -Total Square (Area) (cm) 0.22 0.14 -Tunneling No No No -Undermining/Tunneling No No No -Circular Undermining No No No -Wound/Ulcer Outcome Not Healed Not Healed Healed- Epithelialized -Ulcer Cleansing Rinsed/ Rinsed/ Rinsed/ Irrigated with Irrigated with Irrigated with Saline Saline Saline -Foul Odor after Cleansing No No No -Bioengineered Tissue No No No -Bleeding Controlled with Pressure Pressure NA -Treatment Response Procedure Procedure Tolerated Well Tolerated Well -Offloading No -Debridement - Open, 1st 20sq cm -Debridement - Subq, 1st 20sq cm No No #1 RT KAUR CLUSTER Superior -Time 12:30 11:45 10:46 -Correct Patient Yes Yes Yes -Correct Side, Site, Position Yes Yes Yes -Correct Procedure Yes Yes Yes -Procedure Performed Yes Yes Yes -Type of Procedure Debridement Debridement Debridement -Clinical Debridement Subcutaneous Subcutaneous Subcutaneous -Tissue Removed Subcutaneous Subcutaneous Subcutaneous -Post Debridement (cm) - Length 2.0 0.4 0.2 -Post Debridement (cm) - Width 3.0 0.4 0.2 -Post Debridement (cm) - Depth 0.1 0.1 0.1 -Total Square (Post) (cm) 6.00 0.16 0.04 -Area of Debridement (cm) - Length 2.0 0.4 0.2 -Area of Debridement (cm) - Width 3.0 0.4 0.2 -Total Square (Area) (cm) 6.00 0.16 0.04 -Tunneling No No No -Undermining/Tunneling No No No -Circular Undermining No No No -Wound/Ulcer Outcome Not Healed Not Healed Not Healed -Ulcer Cleansing Rinsed/ Rinsed/ Rinsed/ Irrigated with Irrigated with Irrigated with Saline Saline Saline -Foul Odor after Cleansing No No No -Bioengineered Tissue No No No -Bleeding Controlled with Pressure Pressure Pressure -Treatment Response Procedure Procedure Procedure Tolerated Well Tolerated Well Tolerated Well -Offloading No No No -Total Non-Weight Bearing to Left Lower Extremity -Debridement - Subq, 1st 20sq cm No Yes Yes -Wound Comment(s) Pain Scale: 0-10 Numeric Is Patient Pain Free? Yes Yes Yes 05/03/25 11:50 Wound Center Nurse 2 #6 Right inferior kaur -Time -Correct Patient -Correct Side, Site, Position -Correct Procedure -Procedure Performed -Type of Procedure -Clinical Debridement -Tissue Removed -Post Debridement (cm) - Length -Post Debridement (cm) - Width -Post Debridement (cm) - Depth -Total Square (Post) (cm) -Area of Debridement (cm) - Length -Area of Debridement (cm) - Width -Total Square (Area) (cm) -Tunneling -Undermining/Tunneling -Circular Undermining -Wound/Ulcer Outcome -Ulcer Cleansing -Foul Odor after Cleansing -Bioengineered Tissue -Bleeding Controlled with -Treatment Response -Offloading -Debridement - Subq, 1st 20sq cm #5 LT KAUR -Time -Correct Patient -Correct Side, Site, Position -Correct Procedure -Procedure Performed -Type of Procedure -Clinical Debridement -Tissue Removed -Post Debridement (cm) - Length -Post Debridement (cm) - Width -Post Debridement (cm) - Depth -Total Square (Post) (cm) -Area of Debridement (cm) - Length -Area of Debridement (cm) - Width -Total Square (Area) (cm) -Tunneling -Undermining/Tunneling -Circular Undermining -Wound/Ulcer Outcome -Ulcer Cleansing -Foul Odor after Cleansing -Bioengineered Tissue -Bleeding Controlled with -Treatment Response -Offloading -Debridement - Subq, 1st 20sq cm #4 L POSTERIOR FOOT -Time -Correct Patient -Correct Side, Site, Position #3 LT HEEL -Time -Correct Patient -Correct Side, Site, Position -Correct Procedure -Procedure Performed -Post Debridement (cm) - Length -Post Debridement (cm) - Width -Post Debridement (cm) - Depth -Total Square (Post) (cm) -Wound/Ulcer Outcome -Ulcer Cleansing -Foul Odor after Cleansing -Bioengineered Tissue -Bleeding Controlled with -Offloading #2 RT HEEL -Time 11:50 -Correct Patient Yes -Correct Side, Site, Position Yes -Correct Procedure Yes -Procedure Performed Yes -Type of Procedure Debridement -Clinical Debridement Epidermis / Dermis -Tissue Removed Epidermis, Dermis -Post Debridement (cm) - Length 1.5 -Post Debridement (cm) - Width 0.1 -Post Debridement (cm) - Depth 0.1 -Total Square (Post) (cm) 0.15 -Area of Debridement (cm) - Length 1.5 -Area of Debridement (cm) - Width 0.1 -Total Square (Area) (cm) 0.15 -Tunneling No -Undermining/Tunneling No -Circular Undermining No -Wound/Ulcer Outcome Not Healed -Ulcer Cleansing Rinsed/ Irrigated with Saline -Foul Odor after Cleansing No -Bioengineered Tissue No -Bleeding Controlled with NA -Treatment Response Procedure Tolerated Well -Offloading -Debridement - Open, 1st 20sq cm Yes -Debridement - Subq, 1st 20sq cm #1 RT KAUR CLUSTER Superior -Time 11:50 -Correct Patient Yes -Correct Side, Site, Position Yes -Correct Procedure No -Procedure Performed No -Type of Procedure -Clinical Debridement -Tissue Removed -Post Debridement (cm) - Length -Post Debridement (cm) - Width -Post Debridement (cm) - Depth -Total Square (Post) (cm) -Area of Debridement (cm) - Length -Area of Debridement (cm) - Width -Total Square (Area) (cm) -Tunneling No -Undermining/Tunneling No -Circular Undermining No -Wound/Ulcer Outcome Healed- Epithelialized -Ulcer Cleansing -Foul Odor after Cleansing No -Bioengineered Tissue No -Bleeding Controlled with -Treatment Response -Offloading -Total Non-Weight Bearing to -Debridement - Subq, 1st 20sq cm -Wound Comment(s) fragile, pad and protect Pain Scale: 0-10 Numeric Is Patient Pain Free? Yes WC - Nurse 3 - General Ulcer D/C NN Start: 04/05/25 11:27 Freq: Status: Active Protocol: Activity Type Activity Date Activity User E-sign Co-sign Detail Recorded Client Recorded Date Recorded By Document 04/05/25 12:50 DS [id number] 04/05/25 13:18 DS Document 04/09/25 11:52 RB [id number] 04/09/25 12:00 RB Document 04/12/25 12:14 JF [id number] 04/12/25 12:15 Document 04/19/25 11:12 [id number] 04/19/25 11:14 Document 05/03/25 12:23 RB [id number] 05/03/25 12:24 RB 04/05/25 04/09/25 04/12/25 12:50 11:52 12:14 Wound Care Center Nurse 3 #6 Right inferior kaur -Ulcer Cleansing Wound Cleanser -Primary Dressing Applied Promogran, Silicone Border Foam 6x6 -Promogran 1 -Silicone Border Foam 6x6 1 #5 LT KAUR -Primary Dressing Applied Promogran Silicone Border Foam AG 3.6x4 -Other Dressing promogrAN -Promogran 0 -Silicone Border Foam AG 3.6x4 1 #3 LT HEEL -Ulcer Cleansing Wound Cleanser -Primary Dressing Applied NonAdherent NonAdherent Contact Layer, Contact Layer, Silicone Border Silicone Border Foam 4x4 Foam AG 3.6x4 -Primary Dressing Covered/Secured with Dry Gauze, Secured with Tape -Silicone Border Foam AG 3.6x4 1 -Silicone Border Foam 4x4 1 #2 RT HEEL -Ulcer Cleansing Wound Cleanser -Foul Odor after Cleansing -Primary Dressing Applied NonAdherent NonAdherent NonAdherent Contact Layer Contact Layer, Contact Layer Silicone Border Foam AG 3.6x4 -Primary Dressing Covered/Secured with Dry Gauze, Dry Gauze, Secured with Secured with Tape Tape -Hydrogel -Promogran -Silicone Border Foam AG 3.6x4 1 #1 RT KAUR CLUSTER Superior -Ulcer Cleansing Rinsed/ Irrigated with Saline -Foul Odor after Cleansing No -Primary Dressing Applied Promogran, NonAdherent Silicone Border Contact Layer, Foam 6x6 Promogran -Other Dressing PROMOGRan/ bordered foam -Primary Dressing Covered/Secured with Dry Gauze & Roll Gauze, Secured with Tape -Promogran 1 1 -Silicone Border Foam 6x6 1 Violet-Wound Care BLE -Lotion applied to leg before compression wrap -Multi-Layered Wrap Application Multi-Layer Comp - Bilat ($ ) -Tubular Bandage Single Layer Double Layer -Size of Tubigrip Used Size D Size D -Size D ($) 2 2 -Stockings No -Multi-Layer Compression Bilat (Qty 1 applied) Treatment Response Procedure Tolerated Well Pain Scale: 0-10 Numeric Is Patient Pain Free? Yes Yes Yes WC - Visit Discharge Discharge Condition Stable Stable Stable Ambulatory Status Ambulatory Ambulatory Ambulatory Transportation Private Auto Private Auto Private Auto Accompanied by Medication Reconcilliation completed & No Yes provided to patient/care provider Clinical Summary of Care Provided Yes Yes Notes: pt refused reapplication of 3M bilaterally. Pt states the wraps were so tight and I could not sleep at night. Isabel Beck card room manager consulted and she stated to go back to orginal orders which was bilateral tubigrip 04/19/25 05/03/25 11:12 12:23 Wound Care Center Nurse 3 #6 Right inferior kaur -Ulcer Cleansing -Primary Dressing Applied -Promogran -Silicone Border Foam 6x6 #5 LT KAUR -Primary Dressing Applied -Other Dressing -Promogran -Silicone Border Foam AG 3.6x4 #3 LT HEEL -Ulcer Cleansing -Primary Dressing Applied -Primary Dressing Covered/Secured with -Silicone Border Foam AG 3.6x4 -Silicone Border Foam 4x4 #2 RT HEEL -Ulcer Cleansing Not Cleansed Rinsed/ Irrigated with Saline -Foul Odor after Cleansing No -Primary Dressing Applied C Hydrogel, NonAdherent NonAdherent Contact Layer, Contact Layer Promogran -Primary Dressing Covered/Secured with Dry Gauze, Dry Gauze & Secured with Roll Gauze, Tape Secured with Tape -Hydrogel 1 -Promogran 1 -Silicone Border Foam AG 3.6x4 #1 RT KAUR CLUSTER Superior -Ulcer Cleansing Not Cleansed -Foul Odor after Cleansing No -Primary Dressing Applied Promogran NonAdherent Contact Layer, Promogran -Other Dressing -Primary Dressing Covered/Secured with Dry Gauze, Dry Gauze & Secured with Roll Gauze, Tape Secured with Tape -Promogran 1 0 -Silicone Border Foam 6x6 Violet-Wound Care Cream BLE -Lotion applied to leg before No compression wrap -Multi-Layered Wrap Application -Tubular Bandage Double Layer -Size of Tubigrip Used Size D -Size D ($) 2 -Stockings -Multi-Layer Compression Bilat (Qty applied) Treatment Response Procedure Tolerated Well Pain Scale: 0-10 Numeric Is Patient Pain Free? Yes Yes WC - Visit Discharge Discharge Condition Stable Stable Ambulatory Status Ambulatory Ambulatory Transportation Private Auto Private Auto Accompanied by Medication Reconcilliation completed & No provided to patient/care provider Clinical Summary of Care Provided Yes Notes: pt refused tubigrip bilat Assessment/Plan Assessment/Plan (1) Ulcer of right lower extremity with fat layer exposed: CODE(S): L97.912 - Non-pressure chronic ulcer of unspecified part of right lower leg with fat layer exposed (2) Ulcer of right foot with fat layer exposed: CODE(S): L97.512 - Non-pressure chronic ulcer of other part of right foot with fat layer exposed (3) Ulcer of left foot with fat layer exposed: CODE(S): L97.522 - Non-pressure chronic ulcer of other part of left foot with fat layer exposed (4) PAD (peripheral artery disease): CODE(S): I73.9 - Peripheral vascular disease, unspecified (5) PAF (paroxysmal atrial fibrillation): CODE(S): I48.0 - Paroxysmal atrial fibrillation (6) Type 2 diabetes mellitus: CODE(S): E11.9 - Type 2 diabetes mellitus without complications (7) Chronic kidney disease, stage 3b: CODE(S): N18.32 - Chronic kidney disease, stage 3b (8) Ulcer of left lower extremity with fat layer exposed: CODE(S): L97.922 - Non-pressure chronic ulcer of unspecified part of left lower leg with fat layer exposed PLAN: Plan Debridement done as documented above, procedure was well-tolerated. Not applying dressing appropriately. Following her last visit, hydrogel was introduced however has not put hydrogel in the right fissure/foot ulcer. Occasionally puts Promogran and states that sometimes the dressing stays in place but not always. As previously documented. They have refused home health and refused the 3M wrap. Again, educated on properly applying dressings as recommended. Moistened Promogran, still has hydrogel at home, may use saline or hydrogel to moisten Promogran. Cover with foam dressing and wrap to keep in place. Monitor right kaur area closely as there is still a slight scab. Okay to continue moisturizing adequately. Compression leg elevation and exercise as tolerated. Continue other chronic management. Optimal diabetes control. Their questions were answered and they were advised to let us know if they had any further questions or concerns. Follow-up in a week. This note was generated with Palm dictation software. It may contain incorrect words, spelling, and punctuation that were not noted in checking the note before signing.
--- NOTE | 2025-05-04 07:48 | WC ---
PHOTO-RIGHT RAMIREZ 05/03/25
== END 2025-05-04 23:59 | disposition home or self-care (01) ==
LOC: WC 11:15
PROVIDERS: PCP Family Medicine Geriatric Medicine; Referring Provider Family Medicine Geriatric Medicine; Visit Provider Internal Medicine
DX: E11.621 Type 2 diabetes mellitus with foot ulcer (principal); L97.522 Non-pressure chronic ulcer of other part of left foot with fat layer exposed; L97.512 Non-pressure chronic ulcer of other part of right foot with fat layer exposed; I13.0 Hypertensive heart and chronic kidney disease with heart failure and stage 1 through stage 4 chronic kidney disease, or unspecified chronic kidney disease; I50.33 Acute on chronic diastolic (congestive) heart failure; I48.0 Paroxysmal atrial fibrillation; E11.22 Type 2 diabetes mellitus with diabetic chronic kidney disease; E11.51 Type 2 diabetes mellitus with diabetic peripheral angiopathy without gangrene; N18.32 Chronic kidney disease, stage 3b; K21.9 Gastro-esophageal reflux disease without esophagitis; Z90.710 Acquired absence of both cervix and uterus; Z87.891 Personal history of nicotine dependence; E78.5 Hyperlipidemia, unspecified; Z79.82 Long term (current) use of aspirin; Z95.2 Presence of prosthetic heart valve
CPT/HCPCS: 11042; 29581; 97597; 99212; G0463

== ENCOUNTER 2025-05-10 11:22 | Outpatient (RCR) | payer MEDICARE, SELFPAY ==
[2025-05-10 11:34] VITALS: BP 149/97; PULSE 84; RESP 18; TEMP 36.3
--- NOTE | 2025-05-10 12:11 | PCM.WC.PN ---
History of Present Illness Date of Service: 05/10/25 Chief Complaint: Bilateral lower extremity ulcers History of Wound: Ms. Yates is a 79-year-old who was referred to the wound center by her PCP due to nonhealing bilateral lower extremity ulceration. Said to have started months ago during a prolonged hospitalization in [place]. Bilateral foot/heel and right kaur. She has been applying Neosporin without any significant improvement. She reports a history of vascular surgery in [place]. 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 No significant tobacco use, smoked for about 6 months quit over 50 years ago. She reports a history of borderline diabetes. Currently not on medication. Appetite is fair, concern for recent significant weight loss.. Otherwise, she states that she feels well. Progress of Wound: No acute concerns reported at this time. No significant change since her last visit. They still appear to have struggles with dressing changes Objective Data Objective Data Vital Signs: Vital Signs Temp Pulse Resp BP O2 Del Method 97.4 F L 84 18 149/97 H Room Air 05/10/25 11:34 05/10/25 11:34 05/10/25 11:34 05/10/25 11:34 05/10/25 11:34 Oxygen Delivery Method Room Air Charges/Coding Procedures Integumentary 111xxx-113xx: [id number] Etelvina subq tissue 20 sq cm/< Physical Exam Const alert, oriented x3 and no apparent distress General Appearance: cooperative, well kempt and well developed HEENT normocephalic and head/scalp atraumatic Eyes EOMs intact bilaterally Neck full ROM General: normal visual inspection Resp normal respiratory effort Effort and Inspection: able to speak in complete sentences Skin Wounds: wounds noted size Size: See clinical note, bed granulating well, margins well approximated, no odor, open and surrounding erythema Neuro oriented x3, CN's II-XII intact bilaterally, moves all extremities and no focal motor deficits Psych mental status grossly normal, thought process normal, cooperative and affect normal Debridement Note Debridement Note Wound debrided: Right heel Type of Debridement: Excisional debridement Depth: Down to and including healthy tissue and in the subcutaneous layer Percentage of wound debrided: 100 Instrument Used: 3mm curette and - (1mm) Tissue Removed: Devitalized tissue Severity: Fat Layer Exposed Bleeding Controlled with: Pressure Patient tolerated procedure: Patient tolerated procedure well Post-Debridement Measurements and Additional Note: Post-Debridement Measurements/Treatment YANY - Nurse 1 - General Ulcer Assessment Start: 05/10/25 11:34 Freq: Status: Active Protocol: TOMASZ Activity Type Activity Date Activity User E-sign Co-sign Detail Recorded Client Recorded Date Recorded By Document 05/10/25 11:34 LINDSAY [id number] 05/10/25 11:51 LINDSAY 05/10/25 11:34 WC - Today's Visit Information Type of service Follow-up Visit (Physician/[employer] EXTRACTION WORKER ) Arrival Mode Ambulatory Accompanied by Patient Identification Verified (Name & Yes ) Patient Requires Transmission-Based No Precautions Safety Precautions Fall Prevention Vital Signs Temperature (97.8 F-99.1 F) 97.4 F L Temperature Source Temporal Pulse Rate (60-100) 84 Pulse Location Monitor Respiratory Rate (12-18) 18 Respiratory rate source Observation Oxygen Delivery Method Room Air Blood Pressure (90/60-120/80) 149/97 H Blood Pressure Mean (mm Hg) 114 Source Monitor Position Sitting Blood Pressure Location Left Arm History Since Last Visit- (Skip if this is Patient's initial visit) Have you changed medications since your No last visit? Any new allergies or adverse reactions No Had a fall/change in ADL's that may No increase risk of falls Signs or symptoms of abuse and/or No neglect since last visit Have you been in the hospital since your No last visit? Has dressing in place as prescribed No Has compression in place as prescribed No Has offloadiing in place as prescribed N/A Experienced any changes in pain level or No management Left Footwear Regular Shoe Right Footwear Regular Shoe Pain Scale: 0-10 Numeric Is Patient Pain Free? Yes YANY - Nurse 1 - General Ulcer Measurement Start: 05/10/25 11:34 Freq: Status: Active Protocol: Activity Type Activity Date Activity User E-sign Co-sign Detail Recorded Client Recorded Date Recorded By Document 05/10/25 11:34 LINDSAY [id number] 05/10/25 11:51 LINDSAY 05/10/25 11:34 Wound Center Nurse 1 #1 RT KAUR CLUSTER Superior -Combined with other wound No -Current Size (cm) - Length 0.1 -Current Size (cm) - Width 0.1 -Current Size (cm) - Depth 0.1 -Total Square Cm 0.01 -Date of Last Picture (Recall this 05/10/25 field) -Photo Taken Yes -Tunneling No -Undermining/Tunneling No -Circular Undermining No -Exudate Amt None Present #2 RT HEEL -Combined with other wound No -Current Size (cm) - Length 1.6 -Current Size (cm) - Width 0.1 -Current Size (cm) - Depth 0.1 -Total Square Cm 0.16 -Date of Last Picture (Recall this 05/10/25 field) -Photo Taken Yes -Tunneling No -Undermining/Tunneling No -Circular Undermining No -Exudate Amt None Present -Wound Margin Distinct, Outline Attached -Granulation Amt None Present (0 %) -Slough/Fibrin Yes -Necrosis Amt Large (67-100%) -Necrotic Tissue Type Adherent Slough -Texture (Violet-wound Skin Appearance) Assessed,Callus -Moisture (Violet-wound Skin Appearance) Assessed -Color (Violet-wound Skin Appearance) Assessed -Temperature (Violet-wound Skin No Abnormality Appearance) (Pt Warm) -Tenderness on Palpation (Violet-wound No Skin Appearance) -Ulcer Cleansing Soap and Water -Anesthetic Used 5% Lidocaine Gel Right Calf (cm) 28.5 Right Ankle (cm) 19.1 Left Calf (cm) 29.5 Left Ankle (cm) 21.2 WC - Nurse 2 - General Ulcer CM Notes Start: 05/10/25 11:34 Freq: Status: Active Protocol: Activity Type Activity Date Activity User E-sign Co-sign Detail Recorded Client Recorded Date Recorded By Document 05/10/25 12:01 [id number] 05/10/25 12:05 05/10/25 12:01 Wound Center Nurse 2 #2 RT HEEL -Time 12:01 -Correct Patient Yes -Correct Side, Site, Position Yes -Correct Procedure Yes -Procedure Performed Yes -Type of Procedure Debridement -Clinical Debridement Subcutaneous -Tissue Removed Subcutaneous -Tunneling No -Undermining/Tunneling No -Circular Undermining No -Wound/Ulcer Outcome Not Healed -Ulcer Cleansing Rinsed/ Irrigated with Saline -Foul Odor after Cleansing No -Bioengineered Tissue No -Bleeding Controlled with Pressure -Treatment Response Procedure Tolerated Well -Offloading No -Debridement - Subq, 1st 20sq cm Yes Pain Scale: 0-10 Numeric Is Patient Pain Free? Yes Assessment/Plan Assessment/Plan (1) Ulcer of right lower extremity with fat layer exposed: CODE(S): L97.912 - Non-pressure chronic ulcer of unspecified part of right lower leg with fat layer exposed (2) Ulcer of right foot with fat layer exposed: CODE(S): L97.512 - Non-pressure chronic ulcer of other part of right foot with fat layer exposed (3) Ulcer of left foot with fat layer exposed: CODE(S): L97.522 - Non-pressure chronic ulcer of other part of left foot with fat layer exposed (4) PAD (peripheral artery disease): CODE(S): I73.9 - Peripheral vascular disease, unspecified (5) PAF (paroxysmal atrial fibrillation): CODE(S): I48.0 - Paroxysmal atrial fibrillation (6) Type 2 diabetes mellitus: CODE(S): E11.9 - Type 2 diabetes mellitus without complications (7) Chronic kidney disease, stage 3b: CODE(S): N18.32 - Chronic kidney disease, stage 3b (8) Ulcer of left lower extremity with fat layer exposed: CODE(S): L97.922 - Non-pressure chronic ulcer of unspecified part of left lower leg with fat layer exposed PLAN: Plan Debridement done as documented above, procedure was well-tolerated. Still lots of questions regarding dressing changes. Education again reiterated/provided. Moistened Promogran, still has hydrogel at home, may use saline or hydrogel to moisten Promogran. Cover with Adaptic, foam dressing and wrap to keep in place. Monitor right kaur area closely as there is still a slight scab. Okay to continue moisturizing adequately. Compression leg elevation and exercise as tolerated. Tubigrip for compression continue other chronic management. Optimal diabetes control. Their questions were answered and they were advised to let us know if they had any further questions or concerns. Follow-up in 2 weeks due to commitments. This note was generated with [employer] software. It may contain incorrect words, spelling, and punctuation that were not noted in checking the note before signing.
--- NOTE | 2025-05-11 09:05 | WC ---
PHOTO-RIGHT HEEL 05/10/25
--- NOTE | 2025-05-11 09:06 | WC ---
PHOTO-RIGHT RAMIREZ 05/10/25
== END 2025-06-03 23:59 | disposition home or self-care (01) ==
LOC: WC 11:22
PROVIDERS: PCP Family Medicine Geriatric Medicine; Referring Provider Family Medicine Geriatric Medicine; Visit Provider Internal Medicine
DX: E11.621 Type 2 diabetes mellitus with foot ulcer (principal); L97.512 Non-pressure chronic ulcer of other part of right foot with fat layer exposed; L97.522 Non-pressure chronic ulcer of other part of left foot with fat layer exposed; L97.912 Non-pressure chronic ulcer of unspecified part of right lower leg with fat layer exposed; I48.0 Paroxysmal atrial fibrillation; E11.51 Type 2 diabetes mellitus with diabetic peripheral angiopathy without gangrene; E11.22 Type 2 diabetes mellitus with diabetic chronic kidney disease; N18.32 Chronic kidney disease, stage 3b
CPT/HCPCS: 11042

== ENCOUNTER 2025-05-24 19:21 | Inpatient (IN) | payer MEDICARE, SELFPAY ==
[2025-05-24 19:21] VITALS: BP 135/59; PULSE 88; RESP 18; TEMP 36.8; O2SAT 91
[2025-05-24 19:37] VITALS: BMI 25.4
--- NOTE | 2025-05-24 20:09 | CT_ITS ---
PROCEDURE: ABDOMEN/PELVIS WITHOUT CONT 05/24/2025 REASON FOR EXAM: ABDOMINAL DISTENTION. TECHNIQUE: Procedure Code: CTABDPEL Modality: CT Procedure: ABDOMEN/PELVIS WITHOUT CONT Noncontrast technique limits evaluation of the abdominal and pelvic viscera. Coronal and Sagittal reconstruction series were provided. One or more dose reduction techniques were used (e.g., Automated exposure control, adjustment of the mA and/or kV according to patient size, use of iterative reconstruction technique). RADIATION DOSE SUMMARY: CTDlvol: 9.36 mGy DLP: 467 mGycm COMPARISON: None. FINDINGS: Minimal right pleural effusion. Passive atelectatic airspace disease of the right lower lobe. Moderate cardiomegaly. AICD is in good position. Moderate coronary artery calcifications. Dilated supra hepatic IVC suggestive of dysfunction of the right cardiac cavities. Cirrhotic liver. Splenomegaly. Moderate ascites. Moderate anasarca/3rd spacing. Small sliding hiatal hernia. Underdistended gallbladder containing sludge. Surgical changes of the distal colon. Diffuse thickening of the stomach suggestive of gastritis. Scattered calcified hepatic granulomas. Scattered calcified splenic granulomas. Stent is noted in the superior mesenteric artery. Grade 1 anterolisthesis of L4 on L5. Moderate diffuse spondylosis. Normal extrahepatic biliary system. Normal pancreas. Normal bilateral adrenal glands. Normal size of the right kidney. There is no right renal mass. There are no right renal calculi. There is no right hydronephrosis. Normal visualized right ureter. Normal size of the left kidney. There is no left renal mass. There are no left renal calculi. There is no left hydronephrosis. Normal visualized left ureter. Normal small intestine. The appendix is visualized and appears normal. Calcified atheromatous plaques of the abdominal aorta. Normal inferior vena cava. Normal retroperitoneum. Normal urinary bladder. There is no pelvic mass lesion or lymphadenopathy. CT/Abdomen/Pelvis without Cont IMPRESSION: Minimal right pleural effusion. Passive atelectatic airspace disease of the right lower lobe. Moderate cardiomegaly. AICD is in good position. Moderate coronary artery calcifications. Dilated supra hepatic IVC suggestive of dysfunction of the right cardiac caviti es. Cirrhotic liver. Splenomegaly. Moderate ascites. Moderate anasarca/3rd spacing. Small sliding hiatal hernia. Underdistended gallbladder containing sludge. Surgical changes of the distal colon. Diffuse thickening of the stomach suggestive of gastritis. Scattered calcified hepatic granulomas. Scattered calcified splenic granulomas. Stent is noted in the superior mesenteric artery. Grade 1 anterolisthesis of L4 on L5. Moderate diffuse spondylosis. [facility]
--- NOTE | 2025-05-24 20:11 | EDS_ITS ---
HPI History of Present Illness Chief Complaint: Weakness Informant: patient and spouse/S.O. Onset/Context/Timing Onset: Days Context: Gradual Onset Timing: Continuous Current Severity: Moderate Maximum Severity: Moderate Narrative Narrative: 79-year-old female history of prediabetes, mitral valve regurg, anemia, chronic kidney disease, CHF, pacemaker, A-fib. She is on aspirin but no other blood thinners. Recently her and her travel to [place]. She was seen in the hospital down there diagnosed with right lower extremity cellulitis placed on antibiotic. Said she had to stop taking the antibiotic due to diarrhea. So the last several days she has gotten very weak and now is unable to ambulate. Also is concerned because her abdomen is bloated. She has had a prior hysterectomy and some type of prior abdominal vascular surgery. But she denies any abdominal pain. No dysuria. Prior similar symptoms: No Recent Illness/Hospitalization: No [facility] Medical History Ulcer of left lower extremity with fat layer exposed Anemia of chronic renal failure, stage 3 (moderate) Iron deficiency anemia due to chronic blood loss History of ESBL E. coli infection Type 2 diabetes mellitus Ulcer of left foot with fat layer exposed Ulcer of right foot with fat layer exposed Ulcer of right lower extremity with fat layer exposed Acute on chronic heart failure with preserved ejection fraction Hypokalemia Fatigue Vitamin D deficiency Rheumatoid arthritis Insomnia Mitral valve regurgitation Tachy-lionel syndrome Rheumatic fever GERD (gastroesophageal reflux disease) Chronic renal failure (CRF), stage 3b Cervical cancer Iron deficiency anemia Non-sustained ventricular tachycardia Pulmonary hypertension Rectal bleed Presence of Watchman left atrial appendage closure device Pacemaker Sinus node dysfunction Bradycardia History of cardioversion MONIQUE (acute kidney injury) Skin tear of left forearm without complication Skin cancer Cardiac arrhythmia CHF exacerbation Brain aneurysm Anxiety Family history of brain aneurysm PAD (peripheral artery disease) PAF (paroxysmal atrial fibrillation) Obesity (BMI 30.0-34.9) Laceration of right middle finger Heart disease Diabetes History of cancer Fever HTN (hypertension) Diabetes mellitus type 2 in obese Chest pain, musculoskeletal HLD (hyperlipidemia) URI (upper respiratory infection) Bronchospasm with bronchitis, acute Home Medications Medication Instructions Recorded Last Taken Type atorvastatin 40 mg tablet 40 mg PO DAILY daily 5 Unknown History bumetanide 2 mg tablet 2 mg PO BID #60 tabs 07/07/2 5 Unknown Rx metoprolol succinate 50 mg 50 mg PO BID 02/05/25 Unkno wn History tablet,extended release 24 hr vitamin B complex 1 tab PO QDAY 02/05/25 Unkno wn History ascorbic acid (vitamin C) 500 mg 500 mg PO QDAY Unknown History tablet aspirin 81 mg tablet,delayed 81 mg PO QDAY 02/14/25 Un known History release (Adult Aspirin Regimen) metolazone 5 mg tablet 5 mg PO QDAY PRN edema 02/14 Unknown History pantoprazole 40 mg tablet,delayed 40 mg PO QDAY stomac h 02/14/25 Unknown History release polysaccharide iron complex 150 mg 150 mg PO QDAY 02/02 09/26 Unknown History iron capsule (Ferrex) potassium chloride 10 mEq 10 meq PO QDAY 02/14/25 Unkn own History tablet,extended release(part/cryst) spironolactone 25 mg tablet 12.5 mg PO BID daily 02/14 Unknown History levothyroxine 50 mcg tablet 50 mcg PO DAILY 03/01/25 U nknown History doxycycline hyclate 100 mg tablet 100 mg PO BID Unknown History Allergy/AdvReac Type Severity Reaction Status Date / Time propofol AdvReac Mild Low blood Verified 05/24/25 19:23 pressure Family History Father Heart disease High cholesterol Myocardial infarction, Onset Age: 58 Mother Heart disease Surgical History Hx of abdominal surgery History of mastoidectomy History of cardiac radiofrequency ablation history skin cancer surgery history bilateral ear surgeries History of hysterectomy H/O aortic valve replacement Social History household members: spouse number of children: 1 current occupational status: 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 Recent diarrhea after antibiotics.Abdominal bloating Constitutional Constitutional ED: Denies chills or fever(s) Eyes Eyes: Denies blurry vision ENT ENT ED: Denies ear pain Cardiovascular Cardiovascular: Denies chest pain Respiratory/Chest Respiratory/Chest: Denies cough or dyspnea Gastrointestinal Gastrointestinal: Denies abdominal pain Genitourinary Genitourinary ED: Denies dysuria or hematuria Musculoskeletal Musculoskeletal: Denies arthralgias Integumentary Denies abscess Neurologic Neurologic: Denies headache(s) Psychiatric Psychiatric: Denies anxiety or depression Endocrine Endocrinology: Denies cold intolerance, heat intolerance or polydipsia Hematologic/Lymphatic Hematologic/Lymphatic: Reports none Allergic/Immunologic Allergic/Immunologic ED: Denies mouth swelling, tongue swelling or urticaria EXAM Physical Exam Narrative Exam Narrative: 78-year-old female sitting upright in bed vital signs stable afebrile. Pulse ox 91% on room air no hypoxia. She does not look septic or toxic. is at bedside. H EENT exam pupils round react light. Moist mutes members. Neck nontender no JVD. No lymphadenopathy. Lungs clear to auscultation bilaterally. Heart rate about 90. 5/6 murmur. Chest wall ribs nontender. Abdomen soft nontender. No peritoneal signs. Limited. Moving all 4 extremities. Trace chronic edema both lower extremities. Small wound on her right lateral heel but not acutely infected. No lymphangitic streaking. Normal range of motion. Neurologically she is awake and alert. Answering questions following commands. Const Vital Signs: 05/24/25 19:21 05/24/25 19:38 05/24/25 21:21 Temperature 98.2 F Temperature Source Temporal Pulse Rate 88 87 Respiratory Rate 18 15 Respiratory Effort Normal Non-Labored Respiratory Pattern Normal Blood Pressure 135/59 H 131/62 H Blood Pressure Mean 84 85 Pulse Ox 91 99 Oxygen Delivery Method Room Air Room Air 05/24/25 23:00 05/24/25 23:00 05/24/25 23:06 Temperature 98 F Temperature Source Pulse Rate 81 84 85 Respiratory Rate 15 18 16 Respiratory Effort Respiratory Pattern Normal Blood Pressure 146/71 H 146/71 H Blood Pressure Mean 96 96 Pulse Ox 100 99 Oxygen Delivery Method Room Air MDM MDM MDM Narrative Medical decision making narrative: Send 9-year-old female generalized weakness too weak to stand or walk. She will need to be admitted. Workup will be done in try to figure out the cause of her generalized weakness. Could be dehydration or recent diarrhea could be acute on chronic kidney disease and could be infectious etiologies. A CAT scan of the abdomen for the bloating and other labs to be obtained. Repeat exam no significant change. Have gone over the test results with the patient and her . Awaiting the CT result. She will be admitted for acute renal failure and acute hyperkalemia. She is being treated for acute hyperkalemia with IV fluids, aerosol, calcium gluconate and insulin. Repeat exam patient's resting more comfortably around 11:10 PM. She had lab out of her test results. She understands she is being admitted. I spoken to the hospitalist. She will be admitted to the PCU. She is being treated for her hyperkalemia. She is also receiving IV fluids. Her had to go home I attempted to call him I was unable to reach him to go over her test results with him. History & Record Review Discussion w/independent historian: Patient and Family Additional record(s) reviewed:: Prior inpatient record, Prior outpatient record, Prior ED visit and Prior labs Lab Data Attestation: I reviewed the patient's lab results. Lab results narrative: CBC shows white count 9. H&H 11.4 and 34. Platelets 144. Electrolytes shows sodium 124. Potassium 6.6. Anion gap of 18. BUN of 122 and a creatinine of 4.53 Glucose 133. Liver enzymes shows slightly elevated alk phos and AST. Kidney function is drastically worse from several weeks ago consistent with acute renal failure. Urinalysis is negative. No white or red cells no nitrites. No bacteria. Labs: Laboratory Results - last 24 hr 05/24/25 05/24/25 05/24/25 19:10 20:29 21:31 WBC 9.6 RBC 3.79 L Hgb 11.4 L Hct 34.6 L MCV 91.3 MCH 30.1 MCHC 32.9 RDW Std Deviation 68.4 H RDW Coeff of Yonis 20.3 H Plt Count 144 L MPV 11.0 Immature Gran % (Auto) 1.100 H Neut % (Auto) 68.6 Lymph % (Auto) 19.3 [place] % (Auto) 9.2 Eos % (Auto) 1.4 Baso % (Auto) 0.4 Absolute Neuts (auto) 6.6 Absolute Lymphs (auto) 1.85 Nucleated RBC % 0.2 Differential Comment SCANNED Platelet Estimate ADEQUATE Polychromasia 1+ Anisocytosis 2+ Sodium Cancelled 124 L Potassium Cancelled 6.6 H* Chloride Cancelled 84 L Carbon Dioxide Cancelled 21.2 Anion Gap Cancelled 18 H BUN Cancelled 122 H* Creatinine Cancelled 4.53 H Estim Creat Clear Calc 9.14 L* Est GFR (MDRD) Non-Af Cancelled 9 L BUN/Creatinine Ratio Cancelled 26.9 H Glucose Cancelled 133 H Calcium Cancelled 9.4 Total Bilirubin Cancelled 1.11 AST Cancelled 54 H ALT Cancelled 21 Alkaline Phosphatase Cancelled 106 H Total Protein Cancelled 6.8 Albumin Cancelled 3.4 Globulin Cancelled 3.4 Albumin/Globulin Ratio Cancelled 1.0 Lipase 62 Urine Color Yellow Urine Clarity Clear Urine pH 5.0 Ur Specific [place] 1.015 Urine Protein 30 H Urine Glucose (UA) Normal Urine Ketones Negative Urine Occult Blood 10 H Urine Nitrite Negative Urine Bilirubin Negative Urine Urobilinogen Normal Ur Leukocyte Esterase Negative Urine RBC 0 SEEN Urine WBC 0-5 SEEN Ur Squamous Epith Cells 0 SEEN Urine Bacteria 0 SEEN Urine Mucus 0 SEEN Radiography Chest X-Ray - ED: 2 View, Read by ED Physician, Lungs, Mediastinum, Bony Structures, No Acute Disease, Chronic Changes and Cardiomegaly Diagnostic Testing: Chest x-ray, 2 views, AP lateral, interpreted by myself shows cardiomegaly. Left-sided pacemaker defibrillator. No acute process. Rhythm Strip Rhythm Strip: A-fib Rate: 90 Ectopy: None EKG Initial EKG: Attestation: I personally reviewed and interpreted this EKG as follows: Interpretation: Atrial Fibrillation Comments: A-fib rate of 90 no acute signs of HI or ischemia. Critical Care Time Critical Care Time: Yes Critical care time (excluding procedures): 30-74 minutes, Including time spent:, Discussing w/Patient &/or Family/Aircraft Machinist, Discussing w/Consultants, Arranging Admission or Transfer, Performing Direct Patient Care at Bedside and - (35 minutes.) Discharge Plan Dx/Rx/DC Orders Clinical Impression: Generalized weakness, Unable to ambulate, Acute renal failure, Acute hyperkalemia, Chronic a-fib, History of diabetes mellitus, Acute hyponatremia Disposition Disposition: [facility]
--- OUTSIDE RECORDS SUMMARY | 2025-05-24 20:18 | XMS RPT_ITS | CCD ---
Author Organization [facility] Care Team Providers Care Corporate Compliance Officer Name Role Phone Cruz Le Primary Care Provider SYSTEM, PROVIDER NOT IN Referring Unavaila ble SYSTEM, PROVIDER NOT IN Attending Unavaila ble SYSTEM, PROVIDER NOT IN Referring Unavaila ble SYSTEM, PROVIDER NOT IN Attending Unavaila ble SYSTEM, PROVIDER NOT IN Referring Unavaila ble SYSTEM, PROVIDER NOT IN Attending Unavaila ble Gerard Le PA-C Primary Care Provider No, Referral Unavailable Unavailable Yin Agustin MD Unavailable Gerard Le PA-C Primary Care Provider Yin Agustin MD Unavailable Helen CAMACHO, Sheridan Collins Unavailable Unavailable Carla Burdick MD Unavailable Carla Burdick MD Unavailable Yin Agustin MD Unavailable Carla Burdick MD Unavailable Gerard Le PA-C Primary Care Provider Carla Burdick MD Unavailable Sonny Lund MD Unavailable Gerard Le PA-C Primary Care Provider No, Referral Unavailable Unavailable Yin Agustin MD Unavailable [phone] Carla Burdick MD Unavailable Sonny Lund MD Unavailable Sonny Lund MD Unavailable No, Referral Unavailable Unavailable Yin Agustin MD Unavailable Carla Burdick MD Unavailable Gerard Le PA-C Primary Care Provider Gerard LE Referring Unavailable Gerard LE Primary Care Unavailable Gerard LE Primary Care Unavailable Carla Burdick MD Unavailable Sonny Lund MD Unavailable Dianne Le PA-C Primary Care Provider Unavailable Haagen ATHLETIC AGENT.SCRAP CHARGER, Desyi Unavailable Suppan ATHLETIC AGENT.SCRAP CHARGER, Sandra A Unavailable Sonny Lund MD Unavailable Haagen ATHLETIC AGENT.SCRAP CHARGER, Deysi Primary Care Provider Sonny Lund MD Unavailable ALBIN GU Referring Unavailable HAAGEN, DEYSI Primary Care Unavailable ALBIN GU Attending Unavailable REY, DIANNE ATYLOR Primary Care Unavailable ALBIN GU Attending Unavailable PROVIDER, UNKNOWN Referring Unavailable HAAGEN, DEYSI Primary Care Unavailable ALEXANDRAINALBIN Attending Unavailable HAAGEN, DEYSI Primary Care Unavailable HAAGEN, DEYSI Primary Care Unavailable PROVIDER, UNKNOWN Admitting Unavailable PROVIDER, UNKNOWN Attending Unavailable PROVIDER, UNKNOWN Consulting Unavailable HAAGEN, DEYSI Primary Care Unavailable CARLA BURDICK Attending Unavailable REY, DIANNE CLAUDIA Primary Care Unavailable HAAGEN, DEYSI Attending Unavailable REY, DIANNE HAASORY Primary Care Unavailable HAAGEN, DEYSI Referring Unavailable [...] Unavailable YING TORRES Referring Unavailable REY, DIANNE CLAUDIA Primary Care Unavailable CARLA BURDICK Attending Unavailable HAAGEN, DEYSI Primary Care Unavailable CARLA BURDICK Referring Unavailable HAAGEN, DEYSI Primary Care Unavailable LE, DIANNE CLAUDIA Primary Care Unavailable WREFORD, MELIDA Referring Unavailable SHAYE DOMINGO Attending Unavailable HAAGEN, DEYSI Primary Care Unavailable SHAYE DOMINGO Referring Unavailable HAAGEN, DEYSI Primary Care Unavailable Haagen OCC MED PHYSICIAN-C, Deysi Primary Care Provider Piero UGARTE, Dr. [...] Unavailable Nolan UGARTE, Dr. Portillo Other Provider [phone] Mo UGARTE, Yamileth Other Provider Unavailable Dr. Josefina Arrieta DO Other Provider Ab UGARTE, Dr. Whitehead Other Provider [phone] Javan UGARTE, Dr. Balderrama Other Provider [phone] Matheus UGARTE, Dr. Grimes Other Provider Dr. Marty Hopkins MD Other Provider Scott UGARTE, Dr. Lujan Other Provider Alvaro UGARTE, Dr. Garcia Other Provider Karyna Gates MD Other Provider Angel Luis UGARTE, Dr. Mosqueda Other Provider Ashok UGARTE, Dr. Gagnon Other Provider Trent UGARTE, Dr. Pearson Other Provider Zain UGARTE, Dr. Tulio Granda Other Provider Armin UGARTE, Dr. Castillo Other Provider Rea UGARTE, Dr. Moon Other Provider Juanpablo UGARTE, Dr. Vázquez Other Provider Vinod UGARTE, Dr. Hamm Other Provider Unavailable Jessa Lee MD Other Provider Unavailable Wilman CURRY, Dr. Osborne Other Provider Zeferino UGARTE, Dr. Luna Attending Provider Zeferino UGARTE, Dr. Luna Referring Provider Mark UGARTE, Dr. Vincent Cardozo Primary Care Provider [phone] Ha DO, Dr. Malave Referring Provider Jesika Flores MD, Dr. Vincent Cardozo Attending Provider Dr. Juan Diego Huynh MD Attending Provider Wilman CURRY, Dr. Osborne Referring Provider Mark UGARTE, Dr. Vincent Cardozo Referring Provider [phone] Pau Davis Attending Provider Unavailable Bird UGARTE, Dr. Curran Emergency Provider Bharat OCC MED PHYSICIAN-C, [facility] Primary Care Provider Piero UGARTE, Dr. Durán Emergency Provider Arron UGARTE, Dr. Garcia Admit Provider Dr. Radha Heller MD Other Provider Dr. Dianne Stovall DO Attending Provider Zeferino UGARTE, Dr. Luna Other Provider Dr. Abundio Turcios MD Attending Provider Ha DO, Dr. Malave Referring Provider Jesika Masters MD, Dr. Purvis Attending Provider Teo Blue MD Other Provider Unavailable Nolan UGARTE, Dr. Portillo Other Provider Yamileth Hassan MD Other Provider Unavailable Dr. Josefina Arrieta DO Other Provider Dr. Charley Berger MD Other Provider Dr. Tacos Edouard MD Other Provider [phone] Matheus UGARTE, Dr. Grimes Other Provider Sandeep UGARTE, Dr. Ferguson Other Provider Scott UGARTE, Dr. Lujan Other Provider Alvaro UGARTE, Dr. Garcia Other Provider Kody UGARTE, Karyna Other Provider Angel Luis UGARTE, Dr. Mosqueda Other Provider Ashok UGARTE, Dr. Gagnon Other Provider Trent UGARTE, Dr. Pearson Other Provider Zain UGARTE, Dr. Tulio Granda Other Provider Armin UGARTE, Dr. Castillo Other Provider Rea UGARTE, Dr. Moon Other Provider Juanpablo UGARTE, Dr. Vázquez Other Provider Vinod UGARTE, Dr. Hamm Other Provider Unavailable Jesus UGARTE, Jessa Other Provider Unavailable Dr. Dianne Stovall DO Other Provider Zeferino UGARTE, Dr. Luna Attending Provider Zeferino UGARTE, Dr. Luna Referring Provider Dr. Vincent Flores MD, Chi Primary Care Provider [phone] Mark UGARTE, Dr. Vincent Cardozo Attending Provider Dr. Juan Diego Huynh MD Attending Provider Dr. Dianne Stovall DO Referring Provider Mark UGARTE, Dr. Vincent Cardozo Referring Provider Pau Davis Attending Provider Unavailable Bird UGARTE, Dr. Curran Attending Provider Bird UGARTE, Dr. Curran Emergency Provider [phone] Blossom UGARTE, Dr. Beck Attending Provider Blossom UGARTE, Dr. Beck Other Provider Sonam UGARTE, Dr. Purvis Referring Provider Mark UGARTE, Dr. Vincent Cardozo Referring Provider Hari UGARTE, Dr. Larios Attending Provider Hari UGARTE, Dr. Larios Referring Provider Bharat OCC MED PHYSICIAN-C, [facility]ysi Primary Care Physician Piero UGARTE, Dr. Durán Emergency Department Physician Arron UGARTE, Dr. Garcia Admitting Physician Arron UGARTE, Dr. Garcia Nurse Practitioner Wilman CURRY, Dr. Osborne Attending Physician eZferino UGARTE, Dr. Luna Nurse Practitioner Karolina UGARTE, Dr. Mcbride Attending Physician Sonam UGARTE, Dr. Purvis Attending Physician Mirza UGARTE, Teo Nurse Practitioner Unavailable Nolan UGARTE, Dr. Portillo Nurse Practitioner [phone] Mo UGARTE, Yamileth Nurse Practitioner Unavail zacarias Arrieta DO, Dr. Rocha Nurse Practitioner Ab UGARTE, Dr. Whitehead Nurse Practitioner Javan UGARTE, Dr. Balderrama Nurse Practitioner Matheus UGARTE, Dr. Grimes Nurse Practitioner Dr. Marty Hopkins MD Nurse Practitioner [phone] Tai Chavez MD Nurse Practitioner Alvaro UGARTE, Dr. Garcia Nurse Practitioner Karyna Gates MD Nurse Practitioner [phone] Angel Luis UGARTE, Dr. Mosqueda Nurse Practitioner Ashok UGARTE, Dr. Gagnon Nurse Practitioner Trent UGARTE, Dr. Pearson Nurse Practitioner Dr. Tulio Pittman MD Nurse Practitioner Armin UGARTE, Dr. Castillo Nurse Practitioner Rea UGARTE, Dr. Moon Nurse Practitioner Juanpablo UGARTE, Dr. Vázquez Nurse Practitioner Vinod UGARTE, Dr. Hamm Nurse Practitioner Vipul Lee MD, Jessa Nurse Practitioner Vipul Stovall DO, Dr. Osborne Nurse Practitioner Zeferino UGARTE, Dr. Luna Attending Physician Mark UGARTE, Dr. Vincent Cardozo Primary Care Physician Mark UGARTE, Dr. Vincent Cardozo Attending Physician Lino UGARTE, Dr. Barcenas Attending Physician Bird UGARTE, Dr. Curran Attending Physician Bird UGARTE, Dr. Curran Emergency Department Physici an Blossom UGARTE, Dr. Beck Attending Physician Blossom UGARTE, Dr. Beck Nurse Practitioner Hari UGARTE, Dr. Larios Attending Physician Dr. Ric Noriega MD Referring Provider Edda CURRY, Dr. Matthews Emergency Department Physic marito Dr. Byron Bañuelos DO Attending Physician Dr. Ric Noriega MD Referring Provider Bharat OCC MED PHYSICIAN-C, [facility] Primary Care Physician Dr. Luis Armando Harry MD Emergency Department Physician Arron UGARTE, Dr. Garcia Admitting Physician Arron UGARTE, Dr. Garcia Nurse Practitioner Wilman CURRY, Dr. Osborne Attending Physician Wilman CURRY, Dr. Osborne Nurse Practitioner Zeferino UGARTE, Dr. Luna Nurse Practitioner Zeferino UGARTE, Dr. Luna Attending Physician Zeferino UGARTE, Dr. Luna Referring Provider Mark UGARTE, Dr. Vincent Cardozo Primary Care Physician Mark UGARTE, Dr. Vincent Cardozo Attending Physician Lino UGARTE, Dr. Barcenas Attending Physician Dr. Dianne Stovall DO Referring Provider Sonam UGARTE, Dr. Purvis Attending Physician Sonam UGARTE, Dr. Purvis Referring Provider Mark UGARTE, Dr. Vincent Cardozo Referring Provider Bird UGARTE, Dr. Curran Attending Physician Bird UGARTE, Dr. Curran Emergency Department Physici an Blossom UGARTE, Dr. Beck Attending Physician Blossom UGARTE, Dr. Beck Nurse Practitioner Hari UGARTE, Dr. Larios Attending Physician Dr. Byron Bañuelos DO Attending Physician Dr. Byron Bañuelos DO Emergency Department Physic marito Teresa UGARTE, Dr. Javi Garcias Attending Physician Hari UGARTE, Dr. Larios Referring Provider Colby CESAR-CCookie Attending Physician Mark, Vincent Chi Primary Care Unavailable Mark, Vincent Chi Referring Unavailable Ebony Cerrato Attending Unavailable Mark, Vincent Chi Primary Care Unavailable Juan Diego Huynh Attending Unavailable Mark, Vincent Chi Primary Care Unavailable Mark, Vincent Chi Referring Unavailable Mark, Vincent Chi Attending Unavailable Mark, Vincent Chi Attending Unavailable Mark, Vincent Chi Primary Care Unavailable Mark, Vincent Chi Primary Care Unavailable Mark, Vincent Chi Referring Unavailable Ebony Cerrato Attending Unavailable Mark, Vincent Chi Primary Care Unavailable Ric Noriega Referring Unavailable Ric Noriega Attending Unavailable Radha Heller Unavailable Radha Heller Admitting Unavailable Haagen, Deysi Primary Care Unavailable Dianne Stovall Attending Unavailable Zeferino, Jayaprakas Consulting Unavailable Carla Ha Referring Unavailable Abundio Turcios Attending Unavailable Haagen, Deysi Primary Care Unavailable Mark, Vincent Chi Attending Unavailable Mark, Vincent Chi Primary Care Unavailable Mark, Vincent Chi Primary Care Unavailable Mark, Vincent Chi Referring Unavailable Mark, Vincent Chi Attending Unavailable Mark, Vincent Chi Primary Care Unavailable Byron Bañuelos Attending Unavailable Mark, Vincent Chi Primary Care Unavailable Magdy Pang Attending Unavailable Mark, Vincent Chi Primary Care Unavailable Mark, Vincent Chi Referring Unavailable Mark, Vincent Chi Attending Unavailable Mark, Vincent Chi Primary Care Unavailable Zeferino, Jayaprakas Attending Unavailable Zeferino, Jayaprakas Referring Unavailable Mark, Vincent Chi Primary Care Unavailable Mark, Vincent Chi Attending Unavailable Mark, Vincent Chi Referring Unavailable Oleghe, Efewongbe Attending Unavailable Mark, Vincent Chi Primary Care Unavailable Mark, Vincent Chi Primary Care Unavailable Yaniv Masters Attending Unavailable Mark, Vnicent Chi Primary Care Unavailable Mark, Vincent Chi Referring Unavailable Oleghe, Efewongbe Consulting Unavailable Oleghe, Efewongbe Attending Unavailable Mark, Vincent Chi Primary Care Unavailable Mark, Vincent Chi Referring Unavailable Ric Noriega Attending Unavailable Mark, Vincent Chi Primary Care Unavailable Juan Diego Huynh Attending Unavailable JozefeletskyDianne Referring Unavailable Mark, Vincent Chi Primary Care Unavailable Mark, Vincent Chi Referring Unavailable Oleghe, Efewongbe Attending Unavailable Mark, Vincent Chi Primary Care Unavailable Mark, Vincent Chi Attending Unavailable Mark, Vincent Chi Primary Care Unavailable Ric Noriega Attending Unavailable Mark, Vincent Chi Referring Unavailable Mark, Vincent Chi Primary Care Unavailable Mark, Vincent Chi Referring Unavailable Mark, Vincent Chi Attending Unavailable Mark, Vincent Chi Primary Care Unavailable Sonam [place] Referring Unavailable Yaniv Masters Attending Unavailable Mark, Vincent Chi Primary Care Unavailable Cookie Bowman Attending Unavailable Mark, Vincent Chi Referring Unavailable Radha Heller Attending Unavailable Haagen, Deysi Primary Care Unavailable Radha Heller Consulting Unavailable Radha Heller Admitting Unavailable Dianne Stovall Attending Unavailable Zeferino, Jayaprakas Consulting Unavailable Dianne Stovall Consulting Unavailable Teo Blue Consulting Unavailable Adeli, Amir Consulting Unavailable Hinduja, Yamileth Consulting Unavailable Berny, Josefina Consulting Unavailable Zha, Charley Consulting Unavailable Javan, Tacos Consulting Unavailable Matheus, Sydney Consulting Unavailable Marty Hopkins Consulting Unavailable Tai Chavez Consulting Unavailable Jose John Consulting Unavailable Karyna Gates Consulting Unavailable Panda Hein Consulting Unavailable Chelsi Pulido Consulting Unavailable Ridanatoliy, Lili Consulting Unavailable Zain, Alonsod Jesus Alberto Consulting UnavailJonathan Durant Consulting Unavailable Lucia, Rambecca Consulting Unavailable JuanpabloMonie portillohil Consulting Unavailable Noris Brock Consulting Unavailable Hannamamta, Yousecarlos a Consulting Unavailable Haagen, Deysi Primary Care Unavailable Sonam, [place] Attending Unavailable Mark, Vincent Chi Primary Care Unavailable Mark, Vincent Chi Referring Unavailable Oleghe, Efewongbe Consulting Unavailable Oleghe, Efewongbe Attending Unavailable Mark, Vincent Chi Primary Care Unavailable Mark, Vincent Chi Referring Unavailable Oleghe, Efewongbe Consulting Unavailable Oleghe, Efewongbe Attending Unavailable Mark, Vincent Chi Primary Care Unavailable Mark, Vincent Chi Referring Unavailable Oleghe, Efewongbe Consulting Unavailable Oleghe, Efewongbe Attending Unavailable Mark, Vincent Chi Primary Care Unavailable Oleghe, Efewongbe Consulting Unavailable Mark, Vincent Chi Referring Unavailable Oleghe, Efewongbe Attending Unavailable Mark, Vincent Chi Primary Care Unavailable Oleghe, Efewongbe Consulting Unavailable Mark, Vincent Chi Referring Unavailable Oleghe, Efewongbe Attending Unavailable Mark, Vincent Chi Primary Care Unavailable Oleghe, Efewongbe Consulting Unavailable Mark, Vincent Chi Referring Unavailable Oleghe, Efewongbe Attending Unavailable Mark, Vincent Chi Primary Care Unavailable Oleghe, Efewongbe Consulting Unavailable Oleghe, Efewongbe Attending Unavailable Mark, Vincent Chi Referring Unavailable Mark, Vincent Chi Primary Care Unavailable Sonam, [place] Attending Unavailable Sonam, [place] Referring Unavailable Mark, Vincent Chi Primary Care Unavailable Mark, Vincent Chi Attending Unavailable Allergies Allergy Classification Reported Allergen(s) Allergy Type Date of Onset Reaction(s) Facility (2 sources) metFORMIN Drug Allergy 4 [facility] (20 sources) Protamines; 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: [PROTAMINE] Drug Allergy 2 Anaphylaxis [facility] Work Phone: (20 sources) Propofol; 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: [PROPOFOL] Drug Allergy 3 Other: See Comments [facility] (1 source) Propofol Drug Allergy 5 [facility] Repository Medications Current Medications Medication Drug Class(es) [...] days. 20 tablet 0 12/07/2023 12/17/2023 Active ascorbic acid 500 mg oral tablet (14 sources) Vitamin C Start: 02-14-2025 aspirin 81 mg delayed release oral tablet (20 sources) Platelet Aggregation Inhibitor, Nonsteroidal Anti-inflammatory Drug Start: 02-14-2025 Start: 01-07-2025 End: 02-14-2025 Start: 01-07-2025 End: 02-14-2025 take 1 capsule by mouth once daily Aspirin 81 mg capsule Discontinued 81 mg PO DAILY January 07, 2025 12:00am February 14, 2025 8:23am Start: 01-13-2022 End: 11-20-2025 take 1 tablet [...] th once daily. atorvastatin 40 mg oral tabl et (20 sources) HMG-CoA Reductase Inhibitor Start: 01-07-2025 Start: 10-11-2024 End: 11-20-2024 take 1 tablet by mouth once daily Atorvastatin 40 mg tablet Active 40 mg PO DAILY January 07, 2025 12:00am daily Blood Pressure Monitor (BLOO D PRESSURE KIT) [...] once daily. bumetanide 2 mg oral tablet (20 sources) Loop Diuretic Start: 01-09-20 Calcium Carbonate (2 sources) take 1 tablet by mouth once daily Calcium Carbonate (CALCIUM 600 PO) Take by mouth. One tab daily 0 Active sugar-free cholestyramine resin 4000 mg powder for oral suspension (2 sources) Bile Acid Sequestrant Start: 07-01-20 take 210 g by mouth once daily at dinner Cholestyramine Light (QUESTRAN LIGHT) 4 GM/DOSE Powder Take 210 g by mouth Daily (with dinner). 0 07/01/2017 Active Coenzyme Q10 (COQ10 PO) (2 sources) take 1 tablet by mouth once daily Coenzyme Q10 (COQ10 PO) Take by mouth. One tab daily 0 Active dapagliflozin 10 mg oral tablet (8 sources) Sodium-Glucose Cotransporter 2 Inhibitor Start: 12-14-19 End: 03-13-20 take 1 tablet by mouth once daily dapagliflozin propanediol (FARXIGA) 10 mg tablet Take 1 tablet by mouth once daily. 90 tablet 12/13/2024 03/13/2025 Active doxycycline hyclate 100 mg oral tablet (13 sources) Tetracycline-class Drug Start: 04-05-20 Start: 03-01-2025 End: 03-13-2025 levothyroxine sodium 0.05 mg oral tablet (20 sources) l-Thyroxine Start: 03-01-2025 Start: 02-05-2025 End: 03-13-2025 lisinopril 5 mg oral tablet (20 sources) Angiotensin Converting Enzyme Inhibitor Start: 03-23-2022 End: 04-22-2022 take 1 tablet by mouth once daily lisinopril (ZESTRIL, PRINIVIL) 5 mg tablet Take 1 tablet by mouth once daily. 30 tablet 0 03/23/2022 03/30/2022 Discontinued Start: 07-13-2015 End: 01-07-2025 Start: 07-13-2015 End: 01-07-2025 Lisinopril 40 mg tablet Disc ontinued 20 mg PO DAILY December 02, 2017 8:53am January 07, 2025 4:56pm blood pressure Start: 07-13-2015 End: 01-07-2025 take 1 tablet by mouth once daily lisinopril (ZESTRIL, PRINIVIL) 40 mg tablet Indications: Primary hypertension Take 1 tablet by mouth once daily. 90 tablet 3 12/15/2021 02/24/2022 Discontinued Comment on above: TAKE 1 TABLET BY KALYAN TH EVERY DAY Take 1 tablet by kalyan th once daily. metOLazone 5 mg oral tablet (20 sources) Thiazide-like Diuretic Start: 02-14-2025 Start: 01-08-2025 End: 02-05-2025 Start: 12-26-2024 End: 01-08-2025 24 hr metoprolol succinate 5 0 mg extended release oral tablet (20 sources) beta-Adrenergic Yissel Start: 07-07-2024 Start: 03-30-2022 End: 04-12-2023 take 1 tablet by mouth twice daily metoprolol succinate ER (TOPROL XL) 50 mg 24 hr tablet Indications: Primary hypertension Take 1 tablet by mouth two times a day. 180 tablet 3 04/12/2023 Active Start: 02-13-2021 End: 02-05-2025 Start: 02-13-2021 Metoprolol Suc cinate 25 mg [...] once daily. Take 2 tablets by mo [facility] once daily. Take 1 tablet by kalyan th twice daily. TAKE 1 TABLET BY KALYAN TH TWICE A DAY Take 1 tablet by kalyan th two times a day. mirtazapine 7.5 mg oral tabl et (20 sources) Start: 03-01-2025 End: 05-07-2025 Start: 05-20-2021 End: 03-03-2022 take 1 tablet by mouth once daily at bedtime mirtazapine (REMERON) 15 mg tablet Indications: Adjustment insomnia Take 1 tablet by mouth daily at bedtime. 30 tablet 2 05/20/2021 03/03/2022 Discontinued (Course of therapy completed) Comment on above: Take 1 tablet by kalyan th daily at bedtime. Multiple Vitamin (MULTI-VITAMIN) Tab (2 sources) Start: [...] ea three times daily for 10 days. perflutren lipid microspheres 1.3 mL in NaCl (PF) 0.9% 10 mL injection (DEFINITY) (20 sources) Start: 10-18-19 End: 10-25-19 perflutren lipid microspheres 1.3 mL in NaCl (PF) 0.9% 10 mL injection (DEFINITY) Start: 09-28-2022 End: 12-28-2023 perflutren lipid microsphere s 1.3 mL in NaCl (PF) 0.9% 10 mL injection (DEFINITY) Start: 09-19-2020 End: 12-19-2021 perflutren lipid microsphere s 1.3 mL in NaCl (PF) 0.9% 10 mL injection (GetLikeminds) polysaccharide iron complex 150 mg oral capsule (14 sources) Start: 02-14-2025 potassium,chelated 99 mg oral tablet (2 sources) take 1 tablet by mouth once daily Potassium 99 MG Tab Take by mouth. One tab per day 0 Active simvastatin 40 mg oral tablet (20 sources) HMG-CoA Reductase Inhibitor Start: 01-30-2025 take 1 tablet by mouth once daily at bedtime simvastatin (ZOCOR) 40 mg tablet Take 1 tablet by mouth daily at bedtime. 90 tablet 3 01/30/2025 Active Start: 10-28-2020 End: 01-16-2025 take 1 tablet by mouth once daily at bedtime simvastatin (ZOCOR) 20 mg tablet Indications: Hyperlipidemia with target LDL less than 70 Take 1 tablet by mouth daily at bedtime. 90 tablet 3 01/17/2024 10/31/2024 Discontinued Start: 07-13-2015 End: 01-07-2025 Start: 07-13-2015 End: 01-07-2025 Simvastatin 40 MG tablet Dis continued 20 mg PO AT BEDTIME July 13, 2015 1:00am January 07, 2025 4:57pm cholesterol Start: 07-13-2015 take 20 mg by mouth at bedtime Simvastatin Active 20 MG PO AT BEDTIME July 13, 2015 1:00am Comment on above: Take 1 tablet by kalyan th daily at bedtime. sotalol hydrochloride 80 mg oral tablet (20 sources) Antiarrhythmic Start: take 1.5 tablets by mouth twice daily sotalol 80 MG Tab tablet Take 1.5 tablets by mouth 2 times daily. 45 tablet 3 01/19/2019 Active Start: 12-22-2018 End: 01-19-2019 sotalol 80 MG Tab tablet one tab in the AM and 1/2 tab in the PM 0 12/22/2018 01/19/2019 Discontinued (Dose adjustment (suppress cancel msg)) Start: 11-16-2017 End: 12-02-2017 Start: 11-16-2017 End: 12-02-2017 Sotalol 80 MG tablet Discont inued 40 mg PO AT BEDTIME November 16, 2017 12:00am December 02, 2017 8:57am Cardiac Start: 11-16-2017 End: 12-02-2017 take 40 mg by mouth at bedtime Sotalol Discontinued 40 MG PO AT BEDTIME November 16, 2017 12:00am December 02, 2017 8:57am Start: 07-13-2015 End: 11-16-2017 Start: 07-13-2015 End: 11-16-2017 Sotalol 120 MG [...] 13, 2015 1:00am November 16, 2017 12:41pm valACYclovir 1000 mg oral tablet (4 sources) Herpesvirus Nucleoside Analog DNA Polymerase Inhibitor, Herpes Simplex Virus Nucleoside Analog DNA Polymerase Inhibitor, Herpes Zoster Virus Nucleoside Analog DNA Polymerase Inhibitor Start: 01-16-2022 End: 01-23-2022 take 1 tablet by mouth every twelve hours valACYclovir (VALTREX) 1 gram Indications: Herpes zoster without complication Take 1 tablet by mouth every 12 hours for 7 days. 14 tablet 0 01/16/2022 01/23/2022 Active Comment on above: Take 1 tablet by kalyan th every 12 hours for 7 days. Vitamin B Complex tablet (7 sources) Start: 02-05-2025 Vitamin B Comp julienne tablet Active 1 {tbl} PO daily February 05, 2025 12:00am (20 sources) Start: 02-05-2025 Start: 01-07-2025 End: 02-14-2025 Start: 01-07-2025 End: 02-05-2025 Completed/Discontinued Medications Medication Drug Class(es) Dates Sig (Normalized) Sig (Original) [id number] actuat albuterol 0.09 mg/actuat metered dose inhaler (20 sources) beta2-Adrenergic Agonist Start: 07-17-2015 End: 07-01-2017 Start: 07-17-2015 End: 07-01-2017 Albuterol Sulfate 1 [...] 12/15/2021 02/24/2022 Discontinued Start: 03-24-2019 End: 01-07-2025 Start: 03-24-2019 take 5 mg by mouth twice daily Amlodipine Active 5 MG PO TWICE A DAY March 24, 2019 12:00am take 1 tablet by kalyan th once daily amLODIPine 5 MG Tab tablet amlodipine 5 mg tablet TAKE ONE TABLET BY MOUTH ONCE DAILY 0 Active Comment on above: Take 1 tablet by kalyan th twice daily. Take 1 tablet by kalyan th once daily. Hold if systolic blood pressure less than 100 betamethasone 0.5 mg/ml / clotrimazole 10 mg/ml topical cream (20 sources) Azole Antifungal, Corticosteroid Start: 12-04-2019 End: 02-22-2022 clotrimazole-betamethas one (LOTRISONE) cream Indications: Groin rash Apply 1 application to affected area twice daily. UNTIL CLEAR FOR UP TO 2-3 WEEKS 30 g 1 12/04/2019 02/22/2022 Discontinued Comment on above: Apply 1 application to affected area twice daily. UNTIL CLEAR FOR UP TO 2-3 WEEKS cephalexin 500 mg oral capsule (20 sources) Cephalosporin Antibacterial Start: 04-05-2025 End: 04-24-2025 Start: 03-01-2025 End: 03-13-2025 Start: 02-28-2024 End: 01-07-2025 cholecalciferol 2000 unt / soy protein isolate 64 mg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 ####[facility] [address] [place], [address] CO2 [Moles/Vol] 27.1 mmol/L Normal 21.0-32.0 [facility] Comment on above: Performed By: #### L 501.9520, L500.4050, L100.0100, L506.1001 ####[facility] [address] [place], [address] Creatinine [Mass/Vol] 1.86 mg/dL High 0.70-1.20 [facility] Comment on above: Performed By: #### L 501.9520, L500.4050, L100.0100, L506.1001 ####[facility] [address] [place], [address] GAP 15 Normal 5-15 [facility] Comment on above: Performed By: #### L 501.9520, L500.4050, L100.0100, L506.1001 ####[facility] [address] [place], [address] GFR/1.73 sq M.predicted among non-blacks MDRD (S/P/Bld) [Vol rate/Area] 27 mL/min/{1.73_m2} Low >60 [facility] Comment on above: Result Comment: mL/m in/1.73m2 CKD-EPI Creatinine Equation (2020) Performed By: #### L 501.9520, L500.4050, L100.0100, L506.1001 ####[facility] [address] [place], [address] Globulin (S) [Mass/Vol] 3.3 g/dL Normal 2.2-4.2 [facility] Comment on above: Performed By: #### L 501.9520, L500.4050, L100.0100, L506.1001 ####[facility] [address] [place], [address] Glucose [Mass/Vol] 142 mg/dL High 70-99 [facility] Comment on above: Performed By: #### L 501.9520, L500.4050, L100.0100, L506.1001 ####[facility] [address] [place], [address] Potassium [Moles/Vol] 3.6 mmol/L Normal 3.3-5.1 [facility] Comment on above: Performed By: #### L 501.9520, L500.4050, L100.0100, L506.1001 ####[facility] [address] [place], [address] Sodium [Moles/Vol] 132 mmol/L Low 133-145 [facility] Comment on above: Performed By: #### L 501.9520, L500.4050, L100.0100, L506.1001 ####[facility] [address] [place], [address] T PROT 7.3 g/dL Normal 5.9-8.4 [facility] Comment on above: Performed By: #### L 501.9520, L500.4050, L100.0100, L506.1001 ####[facility] [address] [place], [address] Urea nitrogen [Mass/Vol] 73 mg/dL High 4-19 [facility] Comment on above: Performed By: #### L 501.9520, L500.4050, L100.0100, L506.1001 ####[facility] [address] [place], [address] Eosinophil percentageOrdered By: Vincent Flores on 05-02-2025 Eosinophils/100 WBC (Bld) 0.9 % 0-5 [facility] Erythrocyte distribution wid th ratioOrdered By: Vincent Flores on 05-02-2025 Erythrocyte distribution width (RBC) [Ratio] 22.2 % High 11.6-14.6 [facility] Erythrocyte distribution wid th standard deviationOrdered By: Vincent Flores on 05-02-2025 Erythrocyte distribution width (RBC) [Ratio] 77.4 fl High 35.1-43.9 [facility] Glomerular filtration rate ( GFR) estimation/1.73 sq m using serum, plasma, or whole bOrdered By: Vincent Flores on 05-02-2025 GFR/1.73 sq M.predicted among non-blacks MDRD (S/P/Bld) [Vol rate/Area] 27 mL/min/{1.73_m2} Low >60 [facility] Hematocrit Auto (Bld) [Volum e fraction]Ordered By: Vincent Flores on 05-02-2025 Hematocrit (Bld) [Volume fraction] 33.7 % Low 37-47 [facility] Hemoglobin measurementOrdere d By: Vincent Flores on 05-02-2025 Hemoglobin (Bld) [Mass/Vol] 11.0 g/dL Low 12.0-15.0 [facility] Immature granulocytes/100 WB C Auto (Bld)Ordered By: Vincent Flores on 05-02-2025 Immature granulocytes/100 WBC (Bld) 0.600 % 0.0-0.9 [facility] MCV (mean corpuscular volume ) determinationOrdered By: Vincent Flores on 05-02-2025 MCV (RBC) [Entitic vol] 93.9 fL 81-99 [facility] Mean corpuscular hemoglobin (MCH) determinationOrdered By: Vincent Flores on 05-02-2025 MCH (RBC) [Entitic mass] 30.6 pg 27.0-32.0 [facility] Monocyte percentageOrdered B y: Vincent Flores on 05-02-2025 Monocytes/100 WBC (Bld) 14.0 % High 0-10 [facility] Neutrophil percentageOrdered By: Vincent Flores on 05-02-2025 Neutrophils/100 WBC (Bld) 58.0 % 47-70 [facility] No Panel InformationOrdered By: Vincent Flores on 05-02-2025 1+ [facility] 31 U/L <32 [facility] Platelet countOrdered By: Ishmael Flores on 05-02-2025 Platelets (Bld) [#/Vol] 131 10*3/uL Low 150-450 [facility] Potassium measurement (mass/ volume)Ordered By: Vincent Flores on 05-02-2025 Potassium (Unsp spec) [Mass/Vol] 3.6 mmol/L 3.3-5.1 [facility] RBC Auto (Bld) [#/Vol]Ordere d By: Vincent Flores on 05-02-2025 RBC (Bld) [#/Vol] 3.59 10*6/uL Low 4.2-5.4 [facility] Serum creatinine measurement (mass/volume)Ordered By: Vincent Flores on 05-02-2025 Creatinine [Mass/Vol] 1.86 mg/dL High 0.70-1.20 [facility] Serum globulin measurementOr dered By: Vincent Flores on 05-02-2025 Globulin (S) [Mass/Vol] 3.3 g/dL 2.2-4.2 [facility] Serum glucose measurement (m ass/volume)Ordered By: Vincent Flores on 05-02-2025 Glucose [Mass/Vol] 142 mg/dL High 70-99 [facility] Serum or plasma alanine craven otransferase (ALT) measurementOrdered By: Vincent Flores on 05-02-2025 ALT [Catalytic activity/Vol] 13 U/L <35 [facility] Serum or plasma albumin bijan urement (mass/volume)Ordered By: Vincent Flores on 05-02-2025 Albumin [Mass/Vol] 4.0 g/dL 3.4-4.8 [facility] Serum or plasma albumin/glob ulin mass ratioOrdered By: Vincent Flores on 05-02-2025 Albumin/Globulin [Mass ratio] 1.2 {ratio} 0.9-2.4 [facility] Serum or plasma alkaline da sphatase measurementOrdered By: Vincent Flores on 05-02-2025 ALP [Catalytic activity/Vol] 104 U/L 35-104 [facility] Serum or plasma calcium bijan urement (mass/volume)Ordered By: Vincent Flores on 05-02-2025 Calcium [Mass/Vol] 9.6 mg/dL 7.6-11.0 [facility] Serum or plasma urea nitroge n measurement (mass/volume)Ordered By: Vincent Flores on 05-02-2025 Urea nitrogen [Mass/Vol] 73 mg/dL High 4-19 [facility] Sodium levelOrdered By: Vincent Flores on 05-02-2025 Sodium [Moles/Vol] 132 mmol/L Low 133-145 [facility] TSH DL <= 0.005 mIU/L QnOrde red By: Vincent Flores on 05-02-2025 TSH Qn 3.250 uIU/mL 0.300-4.200 [facility] Thyroid Stim Hormone (TSH)on 05-02-2025 TSH 3.250 uIU/mL Normal 0.300-4.200 [facility] Comment on above: Performed By: #### L 501.2221, L500.4050, L100.0100, L506.1001 ####[facility] [address] [place], [place], [id number] Total proteinOrdered By: Vincent Flores on 05-02-2025 Protein [Mass/Vol] 7.3 g/dL 5.9-8.4 [facility] Vitamin D,25 Hydroxyon 05-02 Vitamin D 25-OH 35.0 ng/mL Normal 30-100 [facility] Comment on above: Result Comment: Haydee min D StatusDeficiency: <20 ng/mL (50nmol/L)Insufficiency: 20-30 ng/mL (50-75 nmol/L)Sufficiency: 30-100 ng/mL (75-250 nmol/L)Toxicity: >100 ng/mL (>250 nmol/L) Performed By: #### L 501.9520, L500.4050, L100.0100, L506.1001 ####[facility] [address] [place], [address] White blood cell (WBC) count Ordered By: Vincent Flores on 05-02-2025 WBC (Bld) [#/Vol] 6.6 10*3/uL 4.4-11.0 [facility] Absolute lymphocyte countOrd ered By: Ric Noriega on 04-24-2025 Lymphocytes Auto (Unsp spec) [#/Vol] 1.46 10*3/uL 0.83-4.51 [facility] Automated lymphocyte count a s percentage of total leukocytesOrdered By: Ric Noriega on 04-24-2025 Lymphocytes/100 WBC Auto (Unsp spec) 26.4 % 19-41 [facility] Basophil percentageOrdered B y: Ric Noriega on 04-24-2025 Basophils/100 WBC (Bld) 0.7 % 0-1 [facility] CBC W/Diff, Automatedon 04-05 Absolute Lymph 1.46 X10 3/uL Normal 0.83-4.51 [facility] Comment on above: Performed By: #### L 503.0450, L503.6030, L100.0100, L100.9950 ####[facility] [address] [place], [address] Absolute Neut 3.2 X10 3/uL Normal 2.0-7.7 [facility] Comment on above: Performed By: #### L 503.6550, L503.6030, L100.0100, L100.9950 ####[facility] [address] [place], [address] Basophils/100 WBC (Bld) 0.7 % Normal 0-1 [facility] Comment on above: Performed By: #### L 503.6550, L503.6030, L100.0100, L100.9950 ####[facility] [address] [place], [address] Eosinophils/100 WBC (Bld) 1.3 % Normal 0-5 [facility] Comment on above: Performed By: #### L 503.6550, L503.6030, L100.0100, L100.9950 ####[facility] [address] [place], [address] Erythrocyte distribution width (RBC) [Ratio] 22.7 % High 11.6-14.6 [facility] Comment on above: Performed By: #### L 503.6550, L503.6030, L100.0100, L100.9950 ####[facility] [address] [place], [address] Hematocrit (Bld) [Volume fraction] 33.0 % Low 37-47 [facility] Comment on above: Performed By: #### L 503.6550, L503.6030, L100.0100, L100.9950 ####[facility] [address] [place], [address] Hemoglobin (Bld) [Mass/Vol] 10.6 g/dL Low 12.0-15.0 [facility] Comment on above: Performed By: #### L 503.6550, L503.6030, L100.0100, L100.9950 ####[facility] [address] [place], [address] IG% 0.400 Normal 0.0-0.9 [facility] Comment on above: Result Comment: IG% - Immature Granulocytes (promyelocytes, myelocytes andmetamyelocytes) > 1% indicates that a LEFT SHIFT is Present. Performed By: #### L 503.6550, L503.6030, L100.0100, L100.9950 ####[facility] [address] [place], [address] Lymphocytes/100 WBC (Bld) 26.4 % Normal 19-41 [facility] Comment on above: Performed By: #### L 503.6550, L503.6030, L100.0100, L100.9950 ####[facility] [address] [place], [address] MCH (RBC) [Entitic mass] 30.4 pg Normal 27.0-32.0 [facility] Comment on above: Performed By: #### L 503.6550, L503.6030, L100.0100, L100.9950 ####[facility] [address] [place], [address] MCHC (RBC) [Mass/Vol] 32.1 g/dL Normal 32-36 [facility] Comment on above: Performed By: #### L 503.6550, L503.6030, L100.0100, L100.9950 ####[facility] [address] [place], [address] MCV (RBC) [Entitic vol] 94.6 fL Normal 81-99 [facility] Comment on above: Performed By: #### L 503.6550, L503.6030, L100.0100, L100.9950 ####[facility] [address] [place], [address] Monocytes/100 WBC (Bld) 12.7 % High 0-10 [facility] Comment on above: Performed By: #### L 503.6550, L503.6030, L100.0100, L100.9950 ####[facility] [address] [place], [address] Neutrophils/100 WBC (Bld) 58.5 % Normal 47-70 [facility] Comment on above: Performed By: #### L 503.6550, L503.6030, L100.0100, L100.9950 ####[facility] [address] [place], [address] Nucleated RBC (Bld) [#/Vol] 0 10*3/uL Normal 0-5 [facility] Comment on above: Performed By: #### L 503.6550, L503.6030, L100.0100, L100.9950 ####[facility] [address] [place], [address] Platelet mean volume (Bld) [Entitic vol] 9.2 fL Normal 6.2-12.0 [facility] Comment on above: Performed By: #### L 503.6550, L503.6030, L100.0100, L100.9950 ####[facility] [address] [place], [address] Platelets (Bld) [#/Vol] 108 10*3/uL Low 150-450 [facility] Comment on above: Performed By: #### L 503.6550, L503.6030, L100.0100, L100.9950 ####[facility] [address] [place], [address] RBC (Bld) [#/Vol] 3.49 10*6/uL Low 4.2-5.4 [facility] Comment on above: Performed By: #### L 503.6550, L503.6030, L100.0100, L100.9950 ####[facility] [address] [place], [address] RDW SD 80.4 fl High 35.1-43.9 [facility] Comment on above: Performed By: #### L 503.6550, L503.6030, L100.0100, L100.9950 ####[facility] [address] [place], [address] WBC (Bld) [#/Vol] 5.5 10*3/uL Normal 4.4-11.0 [facility] Comment on above: Performed By: #### L 503.6550, L503.6030, L100.0100, L100.9950 ####[facility] [address] [place], [address] Eosinophil percentageOrdered By: Ric Noriega on 04-24-2025 Eosinophils/100 WBC (Bld) 1.3 % 0-5 [facility] Erythrocyte distribution wid th ratioOrdered By: [facility] Noriega on 04-24-2025 Erythrocyte distribution width (RBC) [Ratio] 22.7 % High 11.6-14.6 [facility] Erythrocyte distribution wid th standard deviationOrdered By: [facility] Noriega on 04-24-2025 Erythrocyte distribution width (RBC) [Ratio] 80.4 fl High 35.1-43.9 [facility] Ferritinon 04-24-2025 Ferritin [Mass/Vol] 135 ng/mL Normal 22-378 [facility] Comment on above: Performed By: #### L 503.6550, L503.6030, L100.0100, L100.9950 ####[facility] [address] [place], [address] Hematocrit Auto (Bld) [Volum e fraction]Ordered By: Ric Noriega on 04-24-2025 Hematocrit (Bld) [Volume fraction] 33.0 % Low 37-47 [facility] Hemoglobin measurementOrdere d By: Ric Noriega on 04-24-2025 Hemoglobin (Bld) [Mass/Vol] 10.6 g/dL Low 12.0-15.0 [facility] Immature granulocytes/100 WB C Auto (Bld)Ordered By: Ric Noriega on 04-24-2025 Immature granulocytes/100 WBC (Bld) 0.400 % 0.0-0.9 [facility] Iron measurement (mass/mass) Ordered By: Ric Noriega on 04-24-2025 Iron (Unsp spec) [Mass/Mass] 119 ug/dL 50-170 [facility] Iron+Iron Binding Capacityon 04-24-2025 Iron [Mass/Vol] 119 ug/dL Normal 50-170 [facility] Comment on above: Performed By: #### L 503.6550, L503.6030, L100.0100, L100.9950 ####[facility] [address] [place], [address] IRON SATURATION 30.0 Normal 13-59 [facility] Comment on above: Performed By: #### L 503.6550, L503.6030, L100.0100, L100.9950 ####[facility] [address] [place], [address] TIBC 397 ug/dL Normal 250-450 [facility] Comment on above: Performed By: #### L 503.6550, L503.6030, L100.0100, L100.9950 ####[facility] [address] [place], [address] UIBC 278 ug/dL Normal 228-428 [facility] Comment on above: Performed By: #### L 503.6550, L503.6030, L100.0100, L100.9950 ####[facility] [address] [place], [address] MCV (mean corpuscular volume ) determinationOrdered By: Ric Noriega on 04-24-2025 MCV (RBC) [Entitic vol] 94.6 fL 81-99 [facility] Mean corpuscular hemoglobin (MCH) determinationOrdered By: Ric Noriega on 04-24-2025 MCH (RBC) [Entitic mass] 30.4 pg 27.0-32.0 [facility] Monocyte percentageOrdered B y: Ric Noriega on 04-24-2025 Monocytes/100 WBC (Bld) 12.7 % High 0-10 [facility] Neutrophil percentageOrdered By: Ric Agudelokelly on 04-24-2025 Neutrophils/100 WBC (Bld) 58.5 % 47-70 [facility] No Panel InformationOrdered By: Ric Agudelokelly on 04-24-2025 278 ug/dL 228-428 [facility] Oncology Visit Reporton 04-05 Oncology Visit Report Normal [facility] Platelet countOrdered By: Luis oh Hari on 04-24-2025 Platelets (Bld) [#/Vol] 108 10*3/uL Low 150-450 [facility] RBC Auto (Bld) [#/Vol]Ordere d By: Ric Agudelokelly on 04-24-2025 RBC (Bld) [#/Vol] 3.49 10*6/uL Low 4.2-5.4 [facility] Retic Panelon 04-24-2025 IM RET FRACTION 13.80 Normal 3.00-15.90 [facility] Comment on above: Performed By: #### L 503.6550, L503.6030, L100.0100, L100.9950 ####[facility] [address] [place], [place], [address] RET-HE 30.4 pg Normal 30-35 [facility] Comment on above: Performed By: #### L 503.6550, L503.6030, L100.0100, L100.9950 ####[facility] [address] [place], [place], [address] Retic Count 1.82 High 0.5-1.5 [facility] Comment on above: Performed By: #### L 503.6550, L503.6030, L100.0100, L100.9950 ####[facility] [address] [place], [place], [address] Reticulocyte hemoglobin equi valent (RET-He) measurementOrdered By: Abirubin Noriega on 04-24-2025 Hemoglobin (Reticulocytes) [Entitic mass] 30.4 pg 30-35 [facility] Reticulocytes Auto (Bld) [#/ Vol]Ordered By: [facility] Hari on 04-24-2025 Reticulocytes/100 RBC (Bld) 1.82 % High 0.5-1.5 [facility] Serum or plasma ferritin austin surement (mass/volume)Ordered By: [facility] Hari on 04-24-2025 Ferritin [Mass/Vol] 135 ng/mL 22-378 [facility] Serum or plasma iron saturat ion measurement (mass fraction)Ordered By: [facility] on 04-24-2025 Iron saturation [Mass fraction] 30.0 % 13-59 [facility] White blood cell (WBC) count Ordered By: [facility] Hari on 04-24-2025 WBC (Bld) [#/Vol] 5.5 10*3/uL 4.4-11.0 [facility] Wound Ctr History AND Physic apollo 04-23-2025 Wound Ctr History & Physical Normal [facility] Culture, Anaerobic Any Sourc andie 04-08-2025 CUAN No anaerobic bacteri a isolated. [facility] Comment on above: Performed By: #### L 8200.1075, M100.2000, M100.4001, M100.3000 ####[facility] [address] [place], [place], [id number] Wound Cultureon 04-04-2025 WC Normal [facility] Comment on above: Performed By: #### L 8200.1075, M100.2000, M100.4001, M100.3000 ####[facility] [address] [facility] [place], [place], [id number] Gram Stainon 04-03-2025 GS Acceptable Specimen? Yes (<25 Epithelial cells per/lpf) Gram Stain 2+ White Blood Cells 1+ Red Blood Cells No Epithelial cells 1+ Gram positive cocci Normal [facility] Comment on above: Performed By: #### L 8200.1075, M100.2000, M100.4001, M100.3000 ####[facility] [address] [place], [address] Anaerobic cultureOrdered By: Vincent Flores on 04-02-2025 Bacteria identified Anaer cx Nom (Unsp spec) No anaerobic bacteria isolated. [facility] Gram stainOrdered By: Vincent cintron on 04-02-2025 Microscopic observation Gram stain Nom (Unsp spec) [facility] Microscopic observation Gram stain Nom (Unsp spec) [facility] MRSA Wound DNA by PCRon 03-06 MRSA DNA ASSAY Negative Normal Negative [facility] Comment on above: Order Comment: RIGHT ARM Performed By: #### L 8200.1075, M100.2000, M100.4001, M100.3000 ####[facility] [address] [place], [address] SA DNA ASSAY Positive Abnormal Negative [facility] Comment on above: Order Comment: RIGHT ARM Performed By: #### L 8200.1075, M100.2000, M100.4001, M100.3000 ####[facility] [address] [place], [address] Staphylococcus aureus DNA de tection by probe and target amplification methodOrdered By: Vincent Flores on 04-02-2025 S. aureus DNA RANDOLPH+probe Ql (Unsp spec) Positive High Negative [facility] Emergency Department Summary on 03-22-2025 Emergency Department Summary Normal [facility] Erythropoietinon 03-15-2025 ERYTHROPOIETIN 190.9 mIU/mL High 2.6-18.5 [facility] Comment on above: Result Comment: Tagoodiesel DxI 800 Immunoassay SystemValues obtained with different assay methods or kits cannotbe used interchangeably. Results cannot be interpreted asabsolute evidence of the presence or absence of malignantdisease.Performed at: [address] [id number] Director: Chuy Rizvi PhD, Phone: [phone] Performed By: #### L 100.9950, L100.0100, L3100.1350, L503.6550, L503.0106, L503.6030, L500.4050 ####[facility] [address] [place], [address] Absolute lymphocyte countOrd ered By: Ric Noriega on 03-13-2025 Lymphocytes Auto (Unsp spec) [#/Vol] 1.60 10*3/uL 0.83-4.51 [facility] Anion gap in Serum or Plasma Ordered By: Ric Noriega on 03-13-2025 Anion gap [Moles/Vol] 16 mmol/L High 5-15 [facility] Automated lymphocyte count a s percentage of total leukocytesOrdered By: Ric Noriega on 03-13-2025 Lymphocytes/100 WBC Auto (Unsp spec) 24.2 % 19-41 [facility] BUN/creatinine ratioOrdered By: Ric Noriega on 03-13-2025 Urea nitrogen/Creatinine [Mass ratio] 24.6 mg/mg High 10-20 [facility] Basophil percentageOrdered B y: Ric Noriega on 03-13-2025 Basophils/100 WBC (Bld) 0.9 % 0-1 [facility] Bilirubin, totalOrdered By: Ric Noriega on 03-13-2025 Bilirubin [Mass/Vol] 1.04 mg/dL 0.00-1.30 [facility] Blood manual differential co mment interpretation (narrative result)Ordered By: Ric Noriega on 03-13-2025 Manual differential comment Cristhian (Bld) [Interp] SCANNED [facility] Blood polychromasia detectio n by light microscopyOrdered By: [facility] Company[facility]buin Noriega on 03-13-2025 Polychromasia LM Ql (Bld) 1+ [facility] CBC W/Diff, Automatedon Anisocytosis Ql (Bld) 2+ Normal [facility] Comment on above: Performed By: #### L 100.9950, L100.0100, L3100.1350, L503.6550, L503.0106, L503.6030, L500.4050 ####[facility] [address] [place], [address] POLYCHROMASIA 1+ Normal [facility] Comment on above: Performed By: #### L 100.9950, L100.0100, L3100.1350, L503.6550, L503.0106, L503.6030, L500.4050 ####[facility] [address] [place], [address] PLT EST ADEQUATE Normal ADEQ [facility] Comment on above: Performed By: #### L 100.9950, L100.0100, L3100.1350, L503.6550, L503.0106, L503.6030, L500.4050 ####[facility] [address] [place], [address] SMEAR COMMENT SCANNED Normal [facility] Comment on above: Performed By: #### L 100.9950, L100.0100, L3100.1350, L503.6550, L503.0106, L503.6030, L500.4050 ####[facility] [address] [place], [address] Carbon dioxide, total [Moles /volume] in Central venous bloodOrdered By: Ric Noriega on 03-13-2025 CO2 [Moles/Vol] 24.4 mmol/L 21.0-32.0 [facility] Chloride assayOrdered By: Luis Noriega on 03-13-2025 Chloride [Moles/Vol] 92 mmol/L Low 98-108 [facility] Comprehensive Metabolic Prof ilon 03-13-2025 Albumin [Mass/Vol] 4.0 g/dL Normal 3.4-4.8 [facility] Comment on above: Performed By: #### L 100.9950, L100.0100, L3100.1350, L503.6550, L503.0106, L503.6030, L500.4050 ####[facility] [address] [place], [address] Albumin/Globulin [Mass ratio] 1.2 {ratio} Normal 0.9-2.4 [facility] Comment on above: Performed By: #### L 100.9950, L100.0100, L3100.1350, L503.6550, L503.0106, L503.6030, L500.4050 ####[facility] [address] [place], [address] ALK PHOS 136 U/L High 35-104 [facility] Comment on above: Performed By: #### L 100.9950, L100.0100, L3100.1350, L503.6550, L503.0106, L503.6030, L500.4050 ####[facility] [address] [place], [address] ALT [Catalytic activity/Vol] 16 U/L Normal <=34 [facility] Comment on above: Performed By: #### L 100.9950, L100.0100, L3100.1350, L503.6550, L503.0106, L503.6030, L500.4050 ####[facility] [address] [place], [address] AST [Catalytic activity/Vol] 33 U/L High <=31 [facility] Comment on above: Performed By: #### L 100.9950, L100.0100, L3100.1350, L503.6550, L503.0106, L503.6030, L500.4050 ####[facility] [address] [place], [address] Bilirubin [Mass/Vol] 1.04 mg/dL Normal 0.00-1.30 [facility] Comment on above: Performed By: #### L 100.9950, L100.0100, L3100.1350, L503.6550, L503.0106, L503.6030, L500.4050 ####[facility] [address] [place], [address] BUN/CRE 24.6 RATIO High 10-20 [facility] Comment on above: Performed By: #### L 100.9950, L100.0100, L3100.1350, L503.6550, L503.0106, L503.6030, L500.4050 ####[facility] [address] [place], [address] Calcium [Mass/Vol] 9.2 mg/dL Normal 7.6-11.0 [facility] Comment on above: Performed By: #### L 100.9950, L100.0100, L3100.1350, L503.6550, L503.0106, L503.6030, L500.4050 ####[facility] [address] [place], [address] Chloride [Moles/Vol] 92 mmol/L Low 98-108 [facility] Comment on above: Performed By: #### L 100.9950, L100.0100, L3100.1350, L503.6550, L503.0106, L503.6030, L500.4050 ####[facility] [address] [place], [address] CO2 [Moles/Vol] 24.4 mmol/L Normal 21.0-32.0 [facility] Comment on above: Performed By: #### L 100.9950, L100.0100, L3100.1350, L503.6550, L503.0106, L503.6030, L500.4050 ####[facility] [address] [place], [address] Creatinine [Mass/Vol] 2.12 mg/dL High 0.70-1.20 [facility] Comment on above: Performed By: #### L 100.9950, L100.0100, L3100.1350, L503.6550, L503.0106, L503.6030, L500.4050 ####[facility] [address] [place], [address] GAP 16 High 5-15 [facility] Comment on above: Performed By: #### L 100.9950, L100.0100, L3100.1350, L503.6550, L503.0106, L503.6030, L500.4050 ####[facility] [address] [place], [address] GFR/1.73 sq M.predicted among non-blacks MDRD (S/P/Bld) [Vol rate/Area] 23 mL/min/{1.73_m2} Low >60 [facility] Comment on above: Result Comment: mL/m in/1.73m2 CKD-EPI Creatinine Equation (2020) Performed By: #### L 100.9950, L100.0100, L3100.1350, L503.6550, L503.0106, L503.6030, L500.4050 ####[facility] [address] [place], [place], [phone] Globulin (S) [Mass/Vol] 3.3 g/dL Normal 2.2-4.2 [facility] Comment on above: Performed By: #### L 100.9950, L100.0100, L3100.1350, L503.6550, L503.0106, L503.6030, L500.4050 ####[facility] [address] [place], [place], [phone] Glucose [Mass/Vol] 139 mg/dL High 70-99 [facility] Comment on above: Performed By: #### L 100.9950, L100.0100, L3100.1350, L503.6550, L503.0106, L503.6030, L500.4050 ####[facility] [address] [place], [address] Potassium [Moles/Vol] 3.8 mmol/L Normal 3.3-5.1 [facility] Comment on above: Performed By: #### L 100.9950, L100.0100, L3100.1350, L503.6550, L503.0106, L503.6030, L500.4050 ####[facility] [address] [place], [address] Sodium [Moles/Vol] 132 mmol/L Low 133-145 [facility] Comment on above: Performed By: #### L 100.9950, L100.0100, L3100.1350, L503.6550, L503.0106, L503.6030, L500.4050 ####[facility] [address] [place], [address] T PROT 7.3 g/dL Normal 5.9-8.4 [facility] Comment on above: Performed By: #### L 100.9950, L100.0100, L3100.1350, L503.6550, L503.0106, L503.6030, L500.4050 ####[facility] [address] [place], [address] Urea nitrogen [Mass/Vol] 52 mg/dL High 4-19 [facility] Comment on above: Performed By: #### L 100.9950, L100.0100, L3100.1350, L503.6550, L503.0106, L503.6030, L500.4050 ####[facility] [address] [place], [address] Eosinophil percentageOrdered By: Ric Noriega on 03-13-2025 Eosinophils/100 WBC (Bld) 1.2 % 0-5 [facility] Erythrocyte distribution wid th ratioOrdered By: Ric Noriega on 03-13-2025 Erythrocyte distribution width (RBC) [Ratio] 25.2 % High 11.6-14.6 [facility] Erythrocyte distribution wid th standard deviationOrdered By: Ric Noriega on 03-13-2025 Erythrocyte distribution width (RBC) [Ratio] 82.1 fl High 35.1-43.9 [facility] Ferritinon 03-13-2025 Ferritin [Mass/Vol] 48 ng/mL Normal 22-378 [facility] Comment on above: Performed By: #### L 100.9950, L100.0100, L3100.1350, L503.6550, L503.0106, L503.6030, L500.4050 ####[facility] [address] [place], [place], [phone] Glomerular filtration rate ( GFR) estimation/1.73 sq m using serum, plasma, or whole bOrdered By: Ric Noriega on 03-13-2025 GFR/1.73 sq M.predicted among non-blacks MDRD (S/P/Bld) [Vol rate/Area] 23 mL/min/{1.73_m2} Low >60 [facility] Hematocrit Auto (Bld) [Volum e fraction]Ordered By: Ric Noriega on 03-13-2025 Hematocrit (Bld) [Volume fraction] 27.8 % Low 37-47 [facility] Hemoglobin measurementOrdere d By: Ric Noriega on 03-13-2025 Hemoglobin (Bld) [Mass/Vol] 8.7 g/dL Low 12.0-15.0 [facility] Immature granulocytes/100 WB C Auto (Bld)Ordered By: Ric Noriega on 03-13-2025 Immature granulocytes/100 WBC (Bld) 0.200 % 0.0-0.9 [facility] Iron measurement (mass/mass) Ordered By: Ric Noriega on 03-13-2025 Iron (Unsp spec) [Mass/Mass] 39 ug/dL Low 50-170 [facility] Iron+Iron Binding Capacityon 03-13-2025 TIBC 453 ug/dL High 250-450 [facility] Comment on above: Performed By: #### L 100.9950, L100.0100, L3100.1350, L503.6550, L503.0106, L503.6030, L500.4050 ####[facility] [address] [place], [address] MCV (mean corpuscular volume ) determinationOrdered By: Ric Noriega on 03-13-2025 MCV (RBC) [Entitic vol] 89.7 fL 81-99 [facility] Mean corpuscular hemoglobin (MCH) determinationOrdered By: Ric Noriega on 03-13-2025 MCH (RBC) [Entitic mass] 28.1 pg 27.0-32.0 [facility] Monocyte percentageOrdered B y: Ric Noriega on 03-13-2025 Monocytes/100 WBC (Bld) 14.7 % High 0-10 [facility] Neutrophil percentageOrdered By: Ric Noriega on 03-13-2025 Neutrophils/100 WBC (Bld) 58.8 % 47-70 [facility] No Panel InformationOrdered By: Ric Noriega on 03-13-2025 2+ [facility] 33 U/L High <32 [facility] 414 ug/dL 228-428 [facility] Oncology Visit Reporton Oncology Visit Report Normal [facility] Platelet countOrdered By: Luis Noriega on 03-13-2025 Platelets (Bld) [#/Vol] 184 10*3/uL 150-450 [facility] Platelet estimateOrdered By: Ric Noriega on 03-13-2025 Platelets LM Ql (Bld) ADEQUATE ADEQ [facility] Potassium measurement (mass/ volume)Ordered By: Ric Noriega on 03-13-2025 Potassium (Unsp spec) [Mass/Vol] 3.8 mmol/L 3.3-5.1 [facility] RBC Auto (Bld) [#/Vol]Ordere d By: Ric Noriega on 03-13-2025 RBC (Bld) [#/Vol] 3.10 10*6/uL Low 4.2-5.4 [facility] Retic Panelon 03-13-2025 IM RET FRACTION 30.30 High 3.00-15.90 [facility] Comment on above: Performed By: #### L 100.9950, L100.0100, L3100.1350, L503.6550, L503.0106, L503.6030, L500.4050 ####[facility] [address] [place], [place], [phone] RET-HE 27.7 pg Low 30-35 [facility] Comment on above: Performed By: #### L 100.9950, L100.0100, L3100.1350, L503.6550, L503.0106, L503.6030, L500.4050 ####[facility] [address] [place], [place], [phone]) Retic Count 2.47 High 0.5-1.5 [facility] Comment on above: Performed By: #### L 100.9950, L100.0100, L3100.1350, L503.6550, L503.0106, L503.6030, L500.4050 ####[facility] [address] [place], [place], [phone] Reticulocyte hemoglobin equi valent (RET-He) measurementOrdered By: Ric Noriega on 03-13-2025 Hemoglobin (Reticulocytes) [Entitic mass] 27.7 pg Low 30-35 [facility] Reticulocytes Auto (Bld) [#/ Vol]Ordered By: Ric Noriega on 03-13-2025 Reticulocytes/100 RBC (Bld) 2.47 % High 0.5-1.5 [facility] Serum creatinine measurement (mass/volume)Ordered By: Ric Noirega on 03-13-2025 Creatinine [Mass/Vol] 2.12 mg/dL High 0.70-1.20 [facility] Serum globulin measurementOr dered By: Ric Noriega on 03-13-2025 Globulin (S) [Mass/Vol] 3.3 g/dL 2.2-4.2 [facility] Serum glucose measurement (m ass/volume)Ordered By: Ric Noriega on 03-13-2025 Glucose [Mass/Vol] 139 mg/dL High 70-99 [facility] Serum or plasma alanine craven otransferase (ALT) measurementOrdered By: Ric Noriega on 03-13-2025 ALT [Catalytic activity/Vol] 16 U/L <35 [facility] Serum or plasma albumin bijan urement (mass/volume)Ordered By: Ric Noriega on 03-13-2025 Albumin [Mass/Vol] 4.0 g/dL 3.4-4.8 [facility] Serum or plasma albumin/glob ulin mass ratioOrdered By: Ric Noriega on 03-13-2025 Albumin/Globulin [Mass ratio] 1.2 {ratio} 0.9-2.4 [facility] Serum or plasma alkaline da sphatase measurementOrdered By: Ric Noriega on 03-13-2025 ALP [Catalytic activity/Vol] 136 U/L High 35-104 [facility] Serum or plasma calcium bijan urement (mass/volume)Ordered By: Ric Noriega on 03-13-2025 Calcium [Mass/Vol] 9.2 mg/dL 7.6-11.0 [facility] Serum or plasma erythropoiet in (EPO) measurement (units/volume)Ordered By: Ric Noriega on 03-13-2025 Erythropoietin (EPO) Qn 190.9 mIU/mL High 2.6-18.5 [facility] Serum or plasma ferritin austin surement (mass/volume)Ordered By: Ric Noriega on 03-13-2025 Ferritin [Mass/Vol] 48 ng/mL 22-378 [facility] Serum or plasma iron saturat ion measurement (mass fraction)Ordered By: Ric Noriega on 03-13-2025 Iron saturation [Mass fraction] 8.6 % Low 13-59 [facility] Serum or plasma urea nitroge n measurement (mass/volume)Ordered By: Ric Noriega on 03-13-2025 Urea nitrogen [Mass/Vol] 52 mg/dL High 4-19 [facility] Sodium levelOrdered By: Abi Noriega on 03-13-2025 Sodium [Moles/Vol] 132 mmol/L Low 133-145 [facility] Total proteinOrdered By: Ashwin walter Hari on 03-13-2025 Protein [Mass/Vol] 7.3 g/dL 5.9-8.4 [facility] Vitamin B12on 03-13-2025 Cobalamin (Vitamin B12) [Mass/Vol] 1100 pg/mL High 180-914 [facility] Comment on above: Performed By: #### L 100.9950, L100.0100, L3100.1350, L503.6550, L503.0106, L503.6030, L500.4050 ####[facility] [address] [place], [place], [id number] Vitamin B12 ser/plasOrdered By: Ric Hari on 03-13-2025 Cobalamin (Vitamin B12) [Mass/Vol] 1100 pg/mL High 180-914 [facility] White blood cell (WBC) count Ordered By: Ric Noriega on 03-13-2025 WBC (Bld) [#/Vol] 6.6 10*3/uL 4.4-11.0 [facility] Absolute lymphocyte countOrd ered By: Vincent Flores on 03-09-2025 Lymphocytes Auto (Unsp spec) [#/Vol] 2.06 10*3/uL 0.83-4.51 [facility] Anion gap in Serum or Plasma Ordered By: Vincent Flores on 03-09-2025 Anion gap [Moles/Vol] 13 mmol/L 5-15 [facility] Automated lymphocyte count a s percentage of total leukocytesOrdered By: Vincent Flores on 03-09-2025 Lymphocytes/100 WBC Auto (Unsp spec) 33.8 % 19-41 [facility] BUN/creatinine ratioOrdered By: Vincent Flores on 03-09-2025 Urea nitrogen/Creatinine [Mass ratio] 27.6 mg/mg High 10 [facility] Basic Metabolic Profile (BMP )on 03-09-2025 BUN/CRE 27.6 RATIO High 04-23 [facility] Comment on above: Performed By: #### L 500.2500, L100.0100 ####[facility] [address] [place], [address] Calcium [Mass/Vol] 9.1 mg/dL Normal 7.6-11.0 [facility] Comment on above: Performed By: #### L 500.2500, L100.0100 ####[facility] [address] [place], [address] Chloride [Moles/Vol] 97 mmol/L Low 98-108 [facility] Comment on above: Performed By: #### L 500.2500, L100.0100 ####[facility] [address] [place], [address] CO2 [Moles/Vol] 21.7 mmol/L Normal 21.0-32.0 [facility] Comment on above: Performed By: #### L 500.2500, L100.0100 ####[facility] [address] [place], [address] Creatinine [Mass/Vol] 1.80 mg/dL High 0.70-1.20 [facility] Comment on above: Performed By: #### L 500.2500, L100.0100 ####[facility] [address] [place], [address] GAP 13 Normal 5-15 [facility] Comment on above: Performed By: #### L 500.2500, L100.0100 ####[facility] [address] [place], [address] GFR/1.73 sq M.predicted among non-blacks MDRD (S/P/Bld) [Vol rate/Area] 28 mL/min/{1.73_m2} Low >60 [facility] Comment on above: Result Comment: mL/m in/1.73m2 CKD-EPI Creatinine Equation (2020) Performed By: #### L 500.2500, L100.0100 ####[facility] [address] [place], [address] Glucose [Mass/Vol] 136 mg/dL High 70-99 [facility] Comment on above: Performed By: #### L 500.2500, L100.0100 ####[facility] [address] [place], [address] Potassium [Moles/Vol] 5.0 mmol/L Normal 3.3-5.1 [facility] Comment on above: Performed By: #### L 500.2500, L100.0100 ####[facility] [address] [place], [address] Sodium [Moles/Vol] 131 mmol/L Low 133-145 [facility] Comment on above: Performed By: #### L 500.2500, L100.0100 ####[facility] [address] [place], [address] Urea nitrogen [Mass/Vol] 50 mg/dL High 4-19 [facility] Comment on above: Performed By: #### L 500.2500, L100.0100 ####[facility] [address] [place], [address] Basophil percentageOrdered B y: Vincent Flores on 03-09-2025 Basophils/100 WBC (Bld) 1.0 % 0-1 [facility] Blood manual differential co mment interpretation (narrative result)Ordered By: Vincent Flores on 03-09-2025 Manual differential comment Cristhian (Bld) [Interp] SCANNED [facility] CBC W/Diff, Automatedon Anisocytosis Ql (Bld) 2+ Normal [facility] Comment on above: Performed By: #### L 500.2500, L100.0100 ####[facility] [address] [place], [address] REACTIVE LYMPH 1+ Normal [facility] Comment on above: Performed By: #### L 500.2500, L100.0100 ####[facility] [address] [place], [place], [address] SMEAR COMMENT SCANNED Normal [facility] Comment on above: Performed By: #### L 500.2500, L100.0100 ####[facility] [address] [facility] [place], [address] Carbon dioxide, total [Moles /volume] in Central venous bloodOrdered By: Vincent Flores on 03-09-2025 CO2 [Moles/Vol] 21.7 mmol/L 21.0-32.0 [facility] Chloride assayOrdered By: Ishmael Flores on 03-09-2025 Chloride [Moles/Vol] 97 mmol/L Low 98-108 [facility] Eosinophil percentageOrdered By: Vincent Flores on 03-09-2025 Eosinophils/100 WBC (Bld) 1.6 % 0-5 [facility] Erythrocyte distribution wid th ratioOrdered By: Vincent Flores 03-09-2025 Erythrocyte distribution width (RBC) [Ratio] 24.9 % High 11.6-14.6 [facility] Erythrocyte distribution wid th standard deviationOrdered By: Vincent Flores 03-09-2025 Erythrocyte distribution width (RBC) [Ratio] 81.9 fl High 35.1-43.9 [facility] Glomerular filtration rate ( GFR) estimation/1.73 sq m using serum, plasma, or whole bOrdered By: Vincent Flores on 03-09-2025 GFR/1.73 sq M.predicted among non-blacks MDRD (S/P/Bld) [Vol rate/Area] 28 mL/min/{1.73_m2} Low >60 [facility] Hematocrit Auto (Bld) [Volum e fraction]Ordered By: Vincent Flores 03-09-2025 Hematocrit (Bld) [Volume fraction] 28.3 % Low 37-47 [facility] Hemoglobin measurementOrdere d By: Vincent Flores 03-09-2025 Hemoglobin (Bld) [Mass/Vol] 8.9 g/dL Low 12.0-15.0 [facility] Immature granulocytes/100 WB C Auto (Bld)Ordered By: Vincent Flores 03-09-2025 Immature granulocytes/100 WBC (Bld) 0.500 % 0.0-0.9 [facility] MCV (mean corpuscular volume ) determinationOrdered By: Vincent Flores on 03-09-2025 MCV (RBC) [Entitic vol] 89.3 fL 81-99 [facility] Mean corpuscular hemoglobin (MCH) determinationOrdered By: Vincent Flores on 03-09-2025 MCH (RBC) [Entitic mass] 28.1 pg 27.0-32.0 [facility] Monocyte percentageOrdered B y: Vincent Flores on 03-09-2025 Monocytes/100 WBC (Bld) 16.2 % High 0-10 [facility] Neutrophil percentageOrdered By: Vincent Flores on 03-09-2025 Neutrophils/100 WBC (Bld) 46.9 % Low 47-70 [facility] No Panel InformationOrdered By: Vincent Flores on 03-09-2025 2+ [facility] Platelet countOrdered By: Ishmael Flores on 03-09-2025 Platelets (Bld) [#/Vol] 191 10*3/uL 150-450 [facility] Potassium measurement (mass/ volume)Ordered By: iVncent Flores on 03-09-2025 Potassium (Unsp spec) [Mass/Vol] 5.0 mmol/L 3.3-5.1 [facility] RBC Auto (Bld) [#/Vol]Ordere d By: Vincent Flores 03-09-2025 RBC (Bld) [#/Vol] 3.17 10*6/uL Low 4.2-5.4 [facility] Serum creatinine measurement (mass/volume)Ordered By: Vincent Flores on 03-09-2025 Creatinine [Mass/Vol] 1.80 mg/dL High 0.70-1.20 [facility] Serum glucose measurement (m ass/volume)Ordered By: Vincent Flores on 03-09-2025 Glucose [Mass/Vol] 136 mg/dL High 70-99 [facility] Serum or plasma calcium bijan urement (mass/volume)Ordered By: Vincent Flores 03-09-2025 Calcium [Mass/Vol] 9.1 mg/dL 7.6-11.0 [facility] Serum or plasma urea nitroge n measurement (mass/volume)Ordered By: Vincent Flores on 03-09-2025 Urea nitrogen [Mass/Vol] 50 mg/dL High - [facility] Sodium levelOrdered By: Vincent Flores on 03-09-2025 Sodium [Moles/Vol] 131 mmol/L Low 133-145 [facility] White blood cell (WBC) count Ordered By: Vincent Flores on 03-09-2025 WBC (Bld) [#/Vol] 6.1 10*3/uL 4.4-11.0 [facility] Anion gap in Serum or Plasma Ordered By: Vincent Flores on 03-02-2025 Anion gap [Moles/Vol] 14 mmol/L - [facility] BUN/creatinine ratioOrdered By: Vincent Flores on 03-02-2025 Urea nitrogen/Creatinine [Mass ratio] 45.3 mg/mg High 04-23 [facility] Basic Metabolic Profile (BMP )on 03-02-2025 BUN/CRE 45.3 RATIO High 04-23 [facility] Comment on above: Performed By: #### L 500.2500 ####[facility] [address] [place], [address] GAP 14 Normal - [facility] Comment on above: Performed By: #### L 500.2500 ####[facility] [address] [place], [address] Potassium [Moles/Vol] 4.2 mmol/L Normal 3.3-5.1 [facility] Comment on above: Performed By: #### L 500.2500 ####[facility] [address] [place], [address] Carbon dioxide, total [Moles /volume] in Central venous bloodOrdered By: Vincent Flores on 03-02-2025 CO2 [Moles/Vol] 25.2 mmol/L Normal 21.0-32.0 [facility] Comment on above: Performed By: #### L 500.2500 ####[facility] [address] [place], [address] Chloride assayOrdered By: Ishmael Petersok on 03-02-2025 Chloride [Moles/Vol] 94 mmol/L Low 98-108 [facility] Comment on above: Performed By: #### L 500.2500 ####[facility] [address] [place], [place], [address] Glomerular filtration rate ( GFR) estimation/1.73 sq m using serum, plasma, or whole bOrdered By: Vincent Flores on 03-02-2025 GFR/1.73 sq M.predicted among non-blacks MDRD (S/P/Bld) [Vol rate/Area] 28 mL/min/{1.73_m2} Low >60 [facility] Comment on above: Result Comment: mL/m in/1.73m2 CKD-EPI Creatinine Equation (2020) Performed By: #### L 500.2500 ####[facility] [address] [place], [place], [id number] Potassium measurement (mass/ volume)Ordered By: Vincent Flores on 03-02-2025 Potassium (Unsp spec) [Mass/Vol] 4.2 mmol/L 3.3-5.1 [facility] Serum creatinine measurement (mass/volume)Ordered By: Vincent Flores on 03-02-2025 Creatinine [Mass/Vol] 1.79 mg/dL High 0.70-1.20 [facility] Comment on above: Performed By: #### L 500.2500 ####[facility] [address] [place], [place], [address] Serum glucose measurement (m ass/volume)Ordered By: Vincent Flores on 03-02-2025 Glucose [Mass/Vol] 193 mg/dL High 70-99 [facility] Comment on above: Performed By: #### L 500.2500 ####[facility] [address] [place], [place], [id number] Serum or plasma calcium bijan urement (mass/volume)Ordered By: Vincent Flores on 03-02-2025 Calcium [Mass/Vol] 9.4 mg/dL Normal 7.6-11.0 [facility] Comment on above: Performed By: #### L 500.2500 ####[facility] [address] [place], [address] Serum or plasma urea nitroge n measurement (mass/volume)Ordered By: Vincent Flores on 03-02-2025 Urea nitrogen [Mass/Vol] 81 mg/dL High 4-19 [facility] Comment on above: Performed By: #### L 500.2500 ####[facility] [address] [place], [address] Sodium levelOrdered By: Vincent Flores on 03-02-2025 Sodium [Moles/Vol] 133 mmol/L Normal 133-145 [facility] Comment on above: Performed By: #### L 500.2500 ####[facility] [address] [place], [address] Urine Cultureon 03-02-2025 URC Normal [facility] Comment on above: Performed By: #### L 500.4050, L503.7505, L501.9520, L400.0001, L100.0100, M100.2200 ####[facility] [address] [place], [address] Wound Ctr History AND Physic apollo 03-01-2025 Wound Ctr History & Physical Normal [facility] Absolute lymphocyte countOrd ered By: Vincent Flores on 02-27-2025 Lymphocytes Auto (Unsp spec) [#/Vol] 1.36 10*3/uL 0.83-4.51 [facility] Anion gap in Serum or Plasma Ordered By: Vincent Flores on 02-27-2025 Anion gap [Moles/Vol] 18 mmol/L High 5-15 [facility] Automated lymphocyte count a s percentage of total leukocytesOrdered By: Vincent Flores on 02-27-2025 Lymphocytes/100 WBC Auto (Unsp spec) 19.4 % 19-41 [facility] BUN/creatinine ratioOrdered By: Vincent Flores on 02-27-2025 Urea nitrogen/Creatinine [Mass ratio] 56.8 mg/mg High 10-20 [facility] Basophil percentageOrdered B y: Vincent Flores on 02-27-2025 Basophils/100 WBC (Bld) 0.7 % 0-1 [facility] Bilirubin Test strip Ql (U)O rdered By: Vincent Flores on 02-27-2025 Bilirubin Ql (U) Negative Negative [facility] Bilirubin, totalOrdered By: Vincent Flores on 02-27-2025 Bilirubin [Mass/Vol] 1.42 mg/dL High 0.00-1.30 [facility] Comment on above: Performed By: #### L 500.4050, L503.7505, L501.9520, L400.0001, L100.0100, M100.2200 ####[facility] [address] [place], [place], [address] Blood manual differential co mment interpretation (narrative result)Ordered By: Vincent Flores on 02-27-2025 Manual differential comment Cristhian (Bld) [Interp] SCANNED [facility] Blood polychromasia detectio n by light microscopyOrdered By: Vincent Flores on 02-27-2025 Polychromasia LM Ql (Bld) RARE [facility] CBC W/Diff, Automatedon 02-03 Anisocytosis Ql (Bld) 2+ Normal [facility] Comment on above: Performed By: #### L 500.4050, L503.7505, L501.9520, L400.0001, L100.0100, M100.2200 ####[facility] [address] [place], [place], [address] POLYCHROMASIA RARE Normal [facility] Comment on above: Performed By: #### L 500.4050, L503.7505, L501.9520, L400.0001, L100.0100, M100.2200 ####[facility] [address] [place], [place], [id number] SMEAR COMMENT SCANNED Normal [facility] Comment on above: Performed By: #### L 500.4050, L503.7505, L501.9520, L400.0001, L100.0100, M100.2200 ####[facility] [address] [place], [address] Carbon dioxide, total [Moles /volume] in Central venous bloodOrdered By: Vincent Flores on 02-27-2025 CO2 [Moles/Vol] 25.4 mmol/L Normal 21.0-32.0 [facility] Comment on above: Performed By: #### L 500.4050, L503.7505, L501.9520, L400.0001, L100.0100, M100.2200 ####[facility] [address] [place], [address] Chloride assayOrdered By: Ishmael Florse on 02-27-2025 Chloride [Moles/Vol] 90 mmol/L Low 98-108 [facility] Comment on above: Performed By: #### L 500.4050, L503.7505, L501.9520, L400.0001, L100.0100, M100.2200 ####[facility] [address] [place], [address] Comprehensive Metabolic Prof ilon 02-27-2025 ALK PHOS 123 U/L High 35-104 [facility] Comment on above: Performed By: #### L 500.4050, L503.7505, L501.9520, L400.0001, L100.0100, M100.2200 ####[facility] [address] [place], [address] AST [Catalytic activity/Vol] 50 U/L High <=31 [facility] Comment on above: Performed By: #### L 500.4050, L503.7505, L501.9520, L400.0001, L100.0100, M100.2200 ####[facility] [address] [place], [address] BUN/CRE 56.8 RATIO High 10-20 [facility] Comment on above: Performed By: #### L 500.4050, L503.7505, L501.9520, L400.0001, L100.0100, M100.2200 ####[facility] [address] [place], [address] GAP 18 High 5-15 [facility] Comment on above: Performed By: #### L 500.4050, L503.7505, L501.9520, L400.0001, L100.0100, M100.2200 ####[facility] [address] [place], [address] Potassium [Moles/Vol] 3.6 mmol/L Normal 3.3-5.1 [facility] Comment on above: Performed By: #### L 500.4050, L503.7505, L501.9520, L400.0001, L100.0100, M100.2200 ####[facility] [address] [place], [address] T PROT 7.5 g/dL Normal 5.9-8.4 [facility] Comment on above: Performed By: #### L 500.4050, L503.7505, L501.9520, L400.0001, L100.0100, M100.2200 ####[facility] [address] [place], [address] Eosinophil percentageOrdered By: Vincent Mark on 02-27-2025 Eosinophils/100 WBC (Bld) 1.0 % 0-5 [facility] Erythrocyte distribution wid th ratioOrdered By: Vincent Flores on 02-27-2025 Erythrocyte distribution width (RBC) [Ratio] 24.3 % High 11.6-14.6 [facility] Erythrocyte distribution wid th standard deviationOrdered By: [facility] on 02-27-2025 Erythrocyte distribution width (RBC) [Ratio] 76.4 fl High 35.1-43.9 [facility] Glomerular filtration rate ( GFR) estimation/1.73 sq m using serum, plasma, or whole bOrdered By: Vincent Flores on 02-27-2025 GFR/1.73 sq M.predicted among non-blacks MDRD (S/P/Bld) [Vol rate/Area] 27 mL/min/{1.73_m2} Low >60 [facility] Comment on above: Result Comment: mL/m in/1.73m2 CKD-EPI Creatinine Equation (2020) Performed By: #### L 500.4050, L503.7505, L501.9520, L400.0001, L100.0100, M100.2200 ####[facility] [address] [place], [place], [id number] Hematocrit Auto (Bld) [Volum e fraction]Ordered By: Vincent Flores on 02-27-2025 Hematocrit (Bld) [Volume fraction] 26.0 % Low 37-47 [facility] Hemoglobin measurementOrdere d By: Vincent Flores on 02-27-2025 Hemoglobin (Bld) [Mass/Vol] 8.4 g/dL Low 12.0-15.0 [facility] Immature granulocytes/100 WB C Auto (Bld)Ordered By: Vincent Flores 02-27-2025 Immature granulocytes/100 WBC (Bld) 0.300 % 0.0-0.9 [facility] Ketones Test strip Ql (U)Ord ered By: Vincent Flores 02-27-2025 Ketones Ql (U) Negative Negative [facility] MCV (mean corpuscular volume ) determinationOrdered By: Vincent Flores 02-27-2025 MCV (RBC) [Entitic vol] 87.5 fL 81-99 [facility] Mean corpuscular hemoglobin (MCH) determinationOrdered By: Vincent Flores 02-27-2025 MCH (RBC) [Entitic mass] 28.3 pg 27.0-32.0 [facility] Monocyte percentageOrdered B y: Vincent Flores on 02-27-2025 Monocytes/100 WBC (Bld) 11.7 % High 0-10 [facility] Mucus LM Ql (Urine sed)Order ed By: Vincent Flores on 02-27-2025 Mucus Ql (Urine sed) 0 SEEN /hpf [facility] Natriuretic peptide.B prohor daria N-Terminal [Mass/volume] in Serum or PlasmaOrdered By: Vincent Flores on 02-27-2025 Natriuretic peptide.B prohormone N-Terminal [Mass/Vol] 9003 pg/mL High <1800 [facility] Neutrophil percentageOrdered By: Vincent Flores on 02-27-2025 Neutrophils/100 WBC (Bld) 66.9 % 47-70 [facility] Nitrite Test strip Ql (U)Ord ered By: Vincent Flores on 02-27-2025 Nitrite Ql (U) Negative Negative [facility] No Panel InformationOrdered By: Vincent Flores on 02-27-2025 2+ [facility] 50 U/L High <32 [facility] Platelet countOrdered By: Ishmael Flores on 02-27-2025 Platelets (Bld) [#/Vol] 181 10*3/uL 150-450 [facility] Potassium measurement (mass/ volume)Ordered By: Vincent Flores on 02-27-2025 Potassium (Unsp spec) [Mass/Vol] 3.6 mmol/L 3.3-5.1 [facility] Pro- Brain NATRIURETIC PEPTI Drew 02-27-2025 Natriuretic peptide B (Bld) [Mass/Vol] 9003 pg/mL High <=1800 [facility] Comment on above: Result Comment: Hear t Failure Unlikely: < 300 pg/mLHeart Failure Likely< 50 Years: > 450 pg/mL50-75 Years: > 900 pg/mL>75 Years: > 1800 pg/mL Performed By: #### L 500.4050, L503.7505, L501.9520, L400.0001, L100.0100, M100.2200 ####[facility] [address] [place], [address] Protein Test strip Ql (U)Ord ered By: Vincent Flores on 02-27-2025 Protein Ql (U) 30 mg/dl High Negative [facility] RBC Auto (Bld) [#/Vol]Ordere d By: Vincent Flores on 02-27-2025 RBC (Bld) [#/Vol] 2.97 10*6/uL Low 4.2-5.4 [facility] Serum creatinine measurement (mass/volume)Ordered By: Vincent Flores on 02-27-2025 Creatinine [Mass/Vol] 1.90 mg/dL High 0.70-1.20 [facility] Comment on above: Performed By: #### L 500.4050, L503.7505, L501.9520, L400.0001, L100.0100, M100.2200 ####[facility] [address] [place], [address] Serum globulin measurementOr dered By: Vincent Flores on 02-27-2025 Globulin (S) [Mass/Vol] 3.4 g/dL Normal 2.2-4.2 [facility] Comment on above: Performed By: #### L 500.4050, L503.7505, L501.9520, L400.0001, L100.0100, M100.2200 ####[facility] [address] [place], [address] Serum glucose measurement (m ass/volume)Ordered By: Vincent Flores on 02-27-2025 Glucose [Mass/Vol] 290 mg/dL High 70-99 [facility] Comment on above: Performed By: #### L 500.4050, L503.7505, L501.9520, L400.0001, L100.0100, M100.2200 ####[facility] [address] [place], [address] Serum or plasma alanine craven otransferase (ALT) measurementOrdered By: Vincent Flores on 02-27-2025 ALT [Catalytic activity/Vol] 33 U/L Normal <=34 [facility] Comment on above: Performed By: #### L 500.4050, L503.7505, L501.9520, L400.0001, L100.0100, M100.2200 ####[facility] [address] [place], [address] Serum or plasma albumin bijan urement (mass/volume)Ordered By: Vincent Flores on 02-27-2025 Albumin [Mass/Vol] 4.1 g/dL Normal 3.4-4.8 [facility] Comment on above: Performed By: #### L 500.4050, L503.7505, L501.9520, L400.0001, L100.0100, M100.2200 ####[facility] [address] [place], [address] Serum or plasma albumin/glob ulin mass ratioOrdered By: Vincent Flores on 02-27-2025 Albumin/Globulin [Mass ratio] 1.2 {ratio} Normal 0.9-2.4 [facility] Comment on above: Performed By: #### L 500.4050, L503.7505, L501.9520, L400.0001, L100.0100, M100.2200 ####[facility] [address] [place], [address] Serum or plasma alkaline da sphatase measurementOrdered By: Vincent Flores on 02-27-2025 ALP [Catalytic activity/Vol] 123 U/L High 35-104 [facility] Serum or plasma calcium bijan urement (mass/volume)Ordered By: Vincent Flores on 02-27-2025 Calcium [Mass/Vol] 9.9 mg/dL Normal 7.6-11.0 [facility] Comment on above: Performed By: #### L 500.4050, L503.7505, L501.9520, L400.0001, L100.0100, M100.2200 ####[facility] [address] [place], [address] Serum or plasma urea nitroge n measurement (mass/volume)Ordered By: Vincent Flores on 02-27-2025 Urea nitrogen [Mass/Vol] 108 mg/dL Invalid Interpretation Code 10-21 [facility] Comment on above: Result Comment: Crit ical Result(s) Called at: by: DR. FLORES??Results readback by same. Performed By: #### L 500.4050, L503.7505, L501.9520, L400.0001, L100.0100, M100.2200 ####[facility] [address] [place], [place], [id number] Sodium levelOrdered By: Vincent Flores on 02-27-2025 Sodium [Moles/Vol] 134 mmol/L Normal 133-145 [facility] Comment on above: Performed By: #### L 500.4050, L503.7505, L501.9520, L400.0001, L100.0100, M100.2200 ####[facility] [address] [place], [address] Squamous epithelial cells de tection in urine sediment by light microscopyOrdered By: Vincent Flores on 02-27-2025 Epithelial cells.squamous LM Ql (Urine sed) 0 SEEN /hpf 5-10 [facility] TSH DL <= 0.005 mIU/L QnOrde red By: Vincent Flores on 02-27-2025 TSH Qn 3.010 uIU/mL 0.300-4.200 [facility] Thyroid Stim Hormone (TSH)on 02-27-2025 TSH 3.010 uIU/mL Normal 0.300-4.200 [facility] Comment on above: Performed By: #### L 500.4050, L503.7505, L501.9520, L400.0001, L100.0100, M100.2200 ####[facility] [address] [place], [place], [id number] Total proteinOrdered By: Vincent Flores on 02-27-2025 Protein [Mass/Vol] 7.5 g/dL 5.9-8.4 [facility] Urinalysis, Completeon 02-27 EPI,RENAL 0-5 SEEN Normal 0-5 [facility] Comment on above: Order Comment: Urine , Random Performed By: #### L 500.4050, L503.7505, L501.9520, L400.0001, L100.0100, M100.2200 ####[facility] [address] [place], [address] BACTERIA 0 SEEN Normal None Seen [facility] Comment on above: Order Comment: Urine , Random Performed By: #### L 500.4050, L503.7505, L501.9520, L400.0001, L100.0100, M100.2200 ####[facility] [address] [place], [address] EPI,SQUAMOUS 0 SEEN Normal 5-10 [facility] Comment on above: Order Comment: Urine , Random Performed By: #### L 500.4050, L503.7505, L501.9520, L400.0001, L100.0100, M100.2200 ####[facility] [address] [place], [address] Mucus Ql (Urine sed) 0 SEEN Normal [facility] Comment on above: Order Comment: Urine , Random Performed By: #### L 500.4050, L503.7505, L501.9520, L400.0001, L100.0100, M100.2200 ####[facility] [address] [place], [address] RBC 0 SEEN Normal 0-5 [facility] Comment on above: Order Comment: Urine , Random Performed By: #### L 500.4050, L503.7505, L501.9520, L400.0001, L100.0100, M100.2200 ####[facility] [address] [place], [address] WBC 0 SEEN Normal 0-5 [facility] Comment on above: Order Comment: Urine , Random Performed By: #### L 500.4050, L503.7505, L501.9520, L400.0001, L100.0100, M100.2200 ####[facility] [address] [place], [address] Urine clarityOrdered By: Vincent Flores on 02-27-2025 Clarity (U) Sl. Cloudy Clear [facility] Urine color determinationOrd ered By: Vincent Flores on 02-27-2025 Color (U) Yellow Yellow [facility] Urine cultureOrdered By: Vincent Flores on 02-27-2025 Bacteria identified Cx Nom (U) ESBL Escherichia coli Abnormal [facility] Bacteria identified Cx Nom (U) ESBL Escherichia coli Abnormal [facility] Urine glucose detectionOrder ed By: Vincent Flores on 02-27-2025 Glucose Ql (U) Normal mg/dl Normal [facility] Urine leukocyte esterase det ection by dipstickOrdered By: Vincent Flores on 02-27-2025 Leukocyte esterase Test strip Ql (U) Negative Negative [facility] Urine pHOrdered By: Vincent Flores on 02-27-2025 pH (U) 6.5 [pH] 5.0 - 8.0 [facility] Urine sediment bacteria coun t by microscopy (number/high power field)Ordered By: Vincent Flores on 02-27-2025 Bacteria LM.HPF (Urine sed) [#/Area] 0 /[HPF] None Seen [facility] Urine sediment renal epithel ial cell count by microscopy (number/high power field)Ordered By: Vincent Flores on 02-27-2025 Epithelial cells.renal LM.HPF (Urine sed) [#/Area] 0 /[HPF] 0-5 [facility] Urine specific gravity measu rementOrdered By: Vincent Flores on 02-27-2025 Specific gravity (U) [Rel density] 1.010 1.002-1.030 [facility] Urine urobilinogen measureme ntOrdered By: Vincent Flores on 02-27-2025 Urobilinogen Ql (U) Normal mg/dl Normal [facility] White blood cell (WBC) count Ordered By: Vincent Flores on 02-27-2025 WBC (Bld) [#/Vol] 7.0 10*3/uL 4.4-11.0 [facility] White blood cell countOrdere d By: Vincent Flores on 02-27-2025 White blood cell count 0 SEEN /hpf 0-5 [facility] Absolute lymphocyte countOrd ered By: Vincent Flores on 02-21-2025 Lymphocytes Auto (Unsp spec) [#/Vol] 1.96 10*3/uL 0.83-4.51 [facility] Anion gap in Serum or Plasma Ordered By: Vincent Flores on 02-21-2025 Anion gap [Moles/Vol] 18 mmol/L High 5-15 [facility] Automated lymphocyte count a s percentage of total leukocytesOrdered By: Vincent Flores on 02-21-2025 Lymphocytes/100 WBC Auto (Unsp spec) 27.8 % 19-41 [facility] BUN/creatinine ratioOrdered By: Vincent Flores on 02-21-2025 Urea nitrogen/Creatinine [Mass ratio] 44.3 mg/mg High 04-23 [facility] Basic Metabolic Profile (BMP )on 02-21-2025 BUN/CRE 44.3 RATIO High 04-23 [facility] Comment on above: Performed By: #### L 500.2500, L503.7505, L100.0100 ####[facility] [address] [place], [address] Calcium [Mass/Vol] 9.6 mg/dL Normal 7.6-11.0 [facility] Comment on above: Performed By: #### L 500.2500, L503.7505, L100.0100 ####[facility] [address] [place], [address] Chloride [Moles/Vol] 89 mmol/L Low 98-108 [facility] Comment on above: Performed By: #### L 500.2500, L503.7505, L100.0100 ####[facility] [address] [place], [address] CO2 [Moles/Vol] 26.5 mmol/L Normal 21.0-32.0 [facility] Comment on above: Performed By: #### L 500.2500, L503.7505, L100.0100 ####[facility] [address] [place], [address] Creatinine [Mass/Vol] 1.98 mg/dL High 0.70-1.20 [facility] Comment on above: Performed By: #### L 500.2500, L503.7505, L100.0100 ####[facility] [address] [place], [address] GAP 18 High 5-15 [facility] Comment on above: Performed By: #### L 500.2500, L503.7505, L100.0100 ####[facility] [address] [place], [address] GFR/1.73 sq M.predicted among non-blacks MDRD (S/P/Bld) [Vol rate/Area] 25 mL/min/{1.73_m2} Low >60 [facility] Comment on above: Result Comment: mL/m in/1.73m2 CKD-EPI Creatinine Equation (2020) Performed By: #### L 500.2500, L503.7505, L100.0100 ####[facility] [address] [place], [address] Glucose [Mass/Vol] 118 mg/dL High 70-99 [facility] Comment on above: Performed By: #### L 500.2500, L503.7505, L100.0100 ####[facility] [address] [place], [address] Potassium [Moles/Vol] 3.2 mmol/L Low 3.3-5.1 [facility] Comment on above: Performed By: #### L 500.2500, L503.7505, L100.0100 ####[facility] [address] [place], [address] Sodium [Moles/Vol] 133 mmol/L Normal 133-145 [facility] Comment on above: Performed By: #### L 500.2500, L503.7505, L100.0100 ####[facility] [address] [place], [address] Urea nitrogen [Mass/Vol] 88 mg/dL High 4-19 [facility] Comment on above: Performed By: #### L 500.2500, L503.7505, L100.0100 ####[facility] [address] [place], [address] Basophil percentageOrdered B y: Vincent Flores on 02-21-2025 Basophils/100 WBC (Bld) 0.8 % 0-1 [facility] Blood manual differential co mment interpretation (narrative result)Ordered By: Vincent Flores on 02-21-2025 Manual differential comment Cristhian (Bld) [Interp] SCANNED [facility] Blood polychromasia detectio n by light microscopyOrdered By: Vincent Flores on 02-21-2025 Polychromasia LM Ql (Bld) 1+ [facility] CBC W/Diff, Automatedon 02-03 HYPOCHROMASIA 1+ Normal [facility] Comment on above: Performed By: #### L 500.2500, L503.7505, L100.0100 ####[facility] [address] [place], [address] Anisocytosis Ql (Bld) 2+ Normal [facility] Comment on above: Performed By: #### L 500.2500, L503.7505, L100.0100 ####[facility] [address] [place], [address] PLT EST ADEQUATE Normal ADEQ [facility] Comment on above: Performed By: #### L 500.2500, L503.7505, L100.0100 ####[facility] [address] [place], [address] POLYCHROMASIA 1+ Normal [facility] Comment on above: Performed By: #### L 500.2500, L503.7505, L100.0100 ####[facility] [address] [place], [address] SMEAR COMMENT SCANNED Normal [facility] Comment on above: Performed By: #### L 500.8299, L503.7508, L100.0100 ####[facility] [address] [place], [address] Carbon dioxide, total [Moles /volume] in Central venous bloodOrdered By: Vincent Flores on 02-21-2025 CO2 [Moles/Vol] 26.5 mmol/L 21.0-32.0 [facility] Chloride assayOrdered By: Ishmael Flores on 02-21-2025 Chloride [Moles/Vol] 89 mmol/L Low 98-108 [facility] Eosinophil percentageOrdered By: Vincent Flores 02-21-2025 Eosinophils/100 WBC (Bld) 1.4 % 0-5 [facility] Erythrocyte distribution wid th ratioOrdered By: Vincent Flores on 02-21-2025 Erythrocyte distribution width (RBC) [Ratio] 23.6 % High 11.6-14.6 [facility] Erythrocyte distribution wid th standard deviationOrdered By: Vincent Flores on 02-21-2025 Erythrocyte distribution width (RBC) [Ratio] 73.1 fl High 35.1-43.9 [facility] Glomerular filtration rate ( GFR) estimation/1.73 sq m using serum, plasma, or whole bOrdered By: Vincent Flores on 02-21-2025 GFR/1.73 sq M.predicted among non-blacks MDRD (S/P/Bld) [Vol rate/Area] 25 mL/min/{1.73_m2} Low >60 [facility] Hematocrit Auto (Bld) [Volum e fraction]Ordered By: Vincent Flores on 02-21-2025 Hematocrit (Bld) [Volume fraction] 31.5 % Low 37-47 [facility] Hemoglobin measurementOrdere d By: Vincent Flores 02-21-2025 Hemoglobin (Bld) [Mass/Vol] 10.1 g/dL Low 12.0-15.0 [facility] Hypochromatic red blood cell detectionOrdered By: Vincent Flores on 02-21-2025 Hypochromia Ql (Bld) 1+ [facility] Immature granulocytes/100 WB C Auto (Bld)Ordered By: Vincent Flores on 02-21-2025 Immature granulocytes/100 WBC (Bld) 0.300 % 0.0-0.9 [facility] MCV (mean corpuscular volume ) determinationOrdered By: Vincent Flores on 02-21-2025 MCV (RBC) [Entitic vol] 86.3 fL 81-99 [facility] Mean corpuscular hemoglobin (MCH) determinationOrdered By: Vincent Flores on 02-21-2025 MCH (RBC) [Entitic mass] 27.7 pg 27.0-32.0 [facility] Monocyte percentageOrdered B y: Vincent Flores on 02-21-2025 Monocytes/100 WBC (Bld) 14.3 % High 0-10 [facility] Natriuretic peptide.B prohor daria N-Terminal [Mass/volume] in Serum or PlasmaOrdered By: Vincent Flores on 02-21-2025 Natriuretic peptide.B prohormone N-Terminal [Mass/Vol] 72807 pg/mL High <1800 [facility] Neutrophil percentageOrdered By: Vincent Flores on 02-21-2025 Neutrophils/100 WBC (Bld) 55.4 % 47-70 [facility] No Panel InformationOrdered By: Vincent Flores on 02-21-2025 2+ [facility] Platelet countOrdered By: Ishmael Flores on 02-21-2025 Platelets (Bld) [#/Vol] 170 10*3/uL 150-450 [facility] Platelet estimateOrdered By: Vincent Flores on 02-21-2025 Platelets LM Ql (Bld) ADEQUATE ADEQ [facility] Potassium measurement (mass/ volume)Ordered By: Vincent Flores on 02-21-2025 Potassium (Unsp spec) [Mass/Vol] 3.2 mmol/L Low 3.3-5.1 [facility] Pro- Brain NATRIURETIC PEPTI Drew 02-21-2025 Natriuretic peptide B (Bld) [Mass/Vol] 39606 pg/mL High <=1800 [facility] Comment on above: Result Comment: Hear t Failure Unlikely: < 300 pg/mLHeart Failure Likely< 50 Years: > 450 pg/mL50-75 Years: > 900 pg/mL>75 Years: > 1800 pg/mL Performed By: #### L 500.2500, L503.7505, L100.0100 ####[facility] [address] [place], [address] RBC Auto (Bld) [#/Vol]Ordere d By: Vincent Flores on 02-21-2025 RBC (Bld) [#/Vol] 3.65 10*6/uL Low 4.2-5.4 [facility] Serum creatinine measurement (mass/volume)Ordered By: Vincent Flores on 02-21-2025 Creatinine [Mass/Vol] 1.98 mg/dL High 0.70-1.20 [facility] Serum glucose measurement (m ass/volume)Ordered By: Vincent Flores on 02-21-2025 Glucose [Mass/Vol] 118 mg/dL High 70-99 [facility] Serum or plasma calcium bijan urement (mass/volume)Ordered By: Vincent Flores on 02-21-2025 Calcium [Mass/Vol] 9.6 mg/dL 7.6-11.0 [facility] Serum or plasma urea nitroge n measurement (mass/volume)Ordered By: Vincent Flores on 02-21-2025 Urea nitrogen [Mass/Vol] 88 mg/dL High 4-19 [facility] Sodium levelOrdered By: Vincent Flores on 02-21-2025 Sodium [Moles/Vol] 133 mmol/L 133-145 [facility] White blood cell (WBC) count Ordered By: Vincent Flores on 02-21-2025 WBC (Bld) [#/Vol] 7.1 10*3/uL 4.4-11.0 [facility] 12 Lead EKGon 02-16-2025 12 Lead EKG Normal [facility] Absolute lymphocyte countOrd ered By: Magdy Pang on 02-16-2025 Lymphocytes Auto (Unsp spec) [#/Vol] 1.41 10*3/uL 0.83-4.51 [facility] Absolute neutrophil countOrd ered By: Magdy Pang on 02-16-2025 Neutrophils (Bld) [#/Vol] 3.7 10*3/uL 2.0-7.7 [facility] Anion gap in Serum or Plasma Ordered By: Magdy Pang on 02-16-2025 Anion gap [Moles/Vol] 15 mmol/L - [facility] Automated lymphocyte count a s percentage of total leukocytesOrdered By: Magdy Pang on 02-16-2025 Lymphocytes/100 WBC Auto (Unsp spec) 23.2 % [facility] BUN/creatinine ratioOrdered By: Magdy Pang on 02-16-2025 Urea nitrogen/Creatinine [Mass ratio] 33.4 mg/mg High 04-23 [facility] Basic Metabolic Profile (BMP )on 02-16-2025 BUN/CRE 33.4 RATIO High 04-23 [facility] Comment on above: Performed By: #### L 500.2500, L503.7505, L100.0100, L501.4021 ####[facility] [address] [place], [address] Calcium [Mass/Vol] 9.5 mg/dL Normal 7.6-11.0 [facility] Comment on above: Performed By: #### L 500.2500, L503.7505, L100.0100, L501.4021 ####[facility] [address] [place], [address] Chloride [Moles/Vol] 92 mmol/L Low 98-108 [facility] Comment on above: Performed By: #### L 500.2500, L503.7505, L100.0100, L501.4021 ####[facility] [address] [place], [address] CO2 [Moles/Vol] 23.9 mmol/L Normal 21.0-32.0 [facility] Comment on above: Performed By: #### L 500.2500, L503.7505, L100.0100, L501.4021 ####[facility] [address] [place], [address] Creatinine [Mass/Vol] 2.04 mg/dL High 0.70-1.20 [facility] Comment on above: Performed By: #### L 500.2500, L503.7505, L100.0100, L501.4021 ####[facility] [address] [place], [address] ECRCL 20.45 ml/min Low 50-250 [facility] Comment on above: Performed By: #### L 500.2500, L503.7505, L100.0100, L501.4021 ####[facility] [address] [place], [address] GAP 15 Normal 5-15 [facility] Comment on above: Performed By: #### L 500.2500, L503.7505, L100.0100, L501.4021 ####[facility] [address] [place], [address] GFR/1.73 sq M.predicted among non-blacks MDRD (S/P/Bld) [Vol rate/Area] 24 mL/min/{1.73_m2} Low >60 [facility] Comment on above: Result Comment: mL/m in/1.73m2 CKD-EPI Creatinine Equation (2020) Performed By: #### L 500.2500, L503.7505, L100.0100, L501.4021 ####[facility] [address] [place], [address] Glucose [Mass/Vol] 129 mg/dL High 70-99 [facility] Comment on above: Performed By: #### L 500.2500, L503.7505, L100.0100, L501.4021 ####[facility] [address] [place], [address] Potassium [Moles/Vol] 3.9 mmol/L Normal 3.3-5.1 [facility] Comment on above: Performed By: #### L 500.2500, L503.7505, L100.0100, L501.4021 ####[facility] [address] [place], [address] Sodium [Moles/Vol] 131 mmol/L Low 133-145 [facility] Comment on above: Performed By: #### L 500.2500, L503.7505, L100.0100, L501.4021 ####[facility] [address] [place], [address] Urea nitrogen [Mass/Vol] 68 mg/dL High 4-19 [facility] Comment on above: Performed By: #### L 500.2500, L503.7505, L100.0100, L501.4021 ####[facility] [address] [place], [address] Basophil percentageOrdered B y: Magdy Pang on 02-16-2025 Basophils/100 WBC (Bld) 1.0 % 0-1 [facility] Blood manual differential co mment interpretation (narrative result)Ordered By: Magdy Pang on 02-16-2025 Manual differential comment Cristhian (Bld) [Interp] SCANNED [facility] Blood polychromasia detectio n by light microscopyOrdered By: Magdy Pang on 02-16-2025 Polychromasia LM Ql (Bld) 1+ [facility] CBC W/Diff, Automatedon 02-02 HYPOCHROMASIA 1+ Normal [facility] Comment on above: Performed By: #### L 500.2500, L503.7505, L100.0100, L501.4021 ####[facility] [address] [place], [address] POLYCHROMASIA 1+ Normal [facility] Comment on above: Performed By: #### L 500.2500, L503.7505, L100.0100, L501.4021 ####[facility] [address] [place], [address] Anisocytosis Ql (Bld) 2+ Normal [facility] Comment on above: Performed By: #### L 500.2500, L503.7505, L100.0100, L501.4021 ####[facility] [address] [place], [address] PLT EST SLT DEC Normal ADEQ [facility] Comment on above: Performed By: #### L 500.2500, L503.7505, L100.0100, L501.4021 ####[facility] [address] [place], [address] SMEAR COMMENT SCANNED Normal [facility] Comment on above: Performed By: #### L 500.2500, L503.7505, L100.0100, L501.4021 ####[facility] [address] [place], [address] Carbon dioxide, total [Moles /volume] in Central venous bloodOrdered By: Magdy Pang on 02-16-2025 CO2 [Moles/Vol] 23.9 mmol/L 21.0-32.0 [facility] Chest PA and Lateralon 02-16 Chest PA and Lateral Normal [facility] Chloride assayOrdered By: Rancho Pang on 02-16-2025 Chloride [Moles/Vol] 92 mmol/L Low 98-108 [facility] Emergency Department Summary on 02-16-2025 Emergency Department Summary Normal [facility] Eosinophil percentageOrdered By: Magdy Pang on 02-16-2025 Eosinophils/100 WBC (Bld) 1.2 % 0-5 [facility] Erythrocyte distribution wid th ratioOrdered By: Magdy Pang on 02-16-2025 Erythrocyte distribution width (RBC) [Ratio] 24.4 % High 11.6-14.6 [facility] Erythrocyte distribution wid th standard deviationOrdered By: Magdy Pang on 02-16-2025 Erythrocyte distribution width (RBC) [Ratio] 76.4 fl High 35.1-43.9 [facility] Glomerular filtration rate ( GFR) estimation/1.73 sq m using serum, plasma, or whole bOrdered By: Magdy Pang on 02-16-2025 GFR/1.73 sq M.predicted among non-blacks MDRD (S/P/Bld) [Vol rate/Area] 24 mL/min/{1.73_m2} Low >60 [facility] Comment on above: mL/min/1.73m2 CKD-EP I Creatinine Equation (2020) Hematocrit Auto (Bld) [Volum e fraction]Ordered By: Magdy Pang on 02-16-2025 Hematocrit (Bld) [Volume fraction] 32.2 % Low 37-47 [facility] Hemoglobin measurementOrdere d By: Magdy Pang on 02-16-2025 Hemoglobin (Bld) [Mass/Vol] 10.3 g/dL Low 12.0-15.0 [facility] Hypochromatic red blood cell detectionOrdered By: Magdy Pang on 02-16-2025 Hypochromia Ql (Bld) 1+ [facility] Immature granulocytes/100 WB C Auto (Bld)Ordered By: Magdy Pang on 02-16-2025 Immature granulocytes/100 WBC (Bld) 0.300 % 0.0-0.9 [facility] Comment on above: IG% - Immature Granu locytes (promyelocytes, myelocytes and metamyelocytes) > 1% indicates that a LEFT SHIFT is Present. L501.4021on 02-16-2025 Trop T High Sen 94 ng/L Invalid Interpretation Code <=14 [facility] Comment on above: Result Comment: Crit ical Result(s) Called at 1447: by: JOSH MARI. ??Results read back by same. Performed By: #### L 500.2500, L503.7505, L100.0100, L501.4021 ####[facility] [address] [place], [place], [id number] Laboratory - Hematology and Cell countsOrdered By: Magdy Pang on 02-16-2025 Anisocytosis Ql (Bld) 2+ [facility] MCV (mean corpuscular volume ) determinationOrdered By: Magdy Pang on 02-16-2025 MCV (RBC) [Entitic vol] 87.0 fL 81-99 [facility] Mean corpuscular hemoglobin (MCH) determinationOrdered By: Magdy Pang on 02-16-2025 MCH (RBC) [Entitic mass] 27.8 pg 27.0-32.0 [facility] Mean corpuscular hemoglobin concentration (MCHC) determinationOrdered By: Magdy Pang on 02-16-2025 MCHC (RBC) [Mass/Vol] 32.0 g/dL 32-36 [facility] Mean platelet volume determi nationOrdered By: Magdy Pang on 02-16-2025 Platelet mean volume (Bld) [Entitic vol] 9.5 fL 6.2-12.0 [facility] Monocyte percentageOrdered B y: Magdy Pang on 02-16-2025 Monocytes/100 WBC (Bld) 13.7 % High 0-10 [facility] Natriuretic peptide.B prohor daria N-Terminal [Mass/volume] in Serum or PlasmaOrdered By: Magdy Pang on 02-16-2025 Natriuretic peptide.B prohormone N-Terminal [Mass/Vol] 93348 pg/mL High <1800 [facility] Comment on above: Heart Failure Unlike ly: < 300 pg/mLHeart Failure Likely< 50 Years: > 450 pg/mL50-75 Years: > 900 pg/mL>75 Years: > 1800 pg/mL Neutrophil percentageOrdered By: Magdy Pang on 02-16-2025 Neutrophils/100 WBC (Bld) 60.6 % 47-70 [facility] No Panel InformationOrdered By: Magdy Pang on 02-16-2025 2+ [facility] Nucleated red blood cell per centageOrdered By: Magdy Pang on 02-16-2025 Nucleated RBC/100 WBC (Bld) [Ratio] 0 % 0-5 [facility] Platelet countOrdered By: Rancho Pang on 02-16-2025 Platelets (Bld) [#/Vol] 139 10*3/uL Low 150-450 [facility] Platelet estimateOrdered By: Magdy Pang on 02-16-2025 Platelets LM Ql (Bld) SLT DEC ADEQ [facility] Potassium measurement (mass/ volume)Ordered By: Magdy Pang on 02-16-2025 Potassium (Unsp spec) [Mass/Vol] 3.9 mmol/L 3.3-5.1 [facility] Pro- Brain NATRIURETIC PEPTI Drew 02-16-2025 Natriuretic peptide B (Bld) [Mass/Vol] 87592 pg/mL High <=1800 [facility] Comment on above: Result Comment: Hear t Failure Unlikely: < 300 pg/mLHeart Failure Likely< 50 Years: > 450 pg/mL50-75 Years: > 900 pg/mL>75 Years: > 1800 pg/mL Performed By: #### L 500.2500, L503.7505, L100.0100, L501.4021 ####[facility] [address] [place], [address] RBC Auto (Bld) [#/Vol]Ordere d By: Magdy Pang on 02-16-2025 RBC (Bld) [#/Vol] 3.70 10*6/uL Low 4.2-5.4 [facility] Serum creatinine measurement (mass/volume)Ordered By: Magdy Pang on 02-16-2025 Creatinine [Mass/Vol] 2.04 mg/dL High 0.70-1.20 [facility] Serum glucose measurement (m ass/volume)Ordered By: Magdy Pang on 02-16-2025 Glucose [Mass/Vol] 129 mg/dL High 70-99 [facility] Serum or plasma calcium bijan urement (mass/volume)Ordered By: Magdy Pang on 02-16-2025 Calcium [Mass/Vol] 9.5 mg/dL 7.6-11.0 [facility] Serum or plasma urea nitroge n measurement (mass/volume)Ordered By: Magdy Pang on 02-16-2025 Urea nitrogen [Mass/Vol] 68 mg/dL High 4-19 [facility] Sodium levelOrdered By: Magdy Pang on 02-16-2025 Sodium [Moles/Vol] 131 mmol/L Low 133-145 [facility] Troponin T HS 2 HRon 025 Trop T High Sen 88 ng/L Invalid Interpretation Code <=14 [facility] Comment on above: Result Comment: Crit ical Result(s) Called at 1627: by: JOSH TREJO. ??Results read back by same. Performed By: #### L 499.0042 ####[facility] [address] [place], [address] Troponin T HS 4 HRon 025 Trop T High Sen Normal <=14 [facility] Comment on above: Result Comment: JENARO ENT DISCHARGED Performed By: #### L 499.0043 ####[facility] [address] [place], [address] Troponin T.cardiac [Mass/vol ume] in Serum or Plasma by High sensitivity methodOrdered By: Magdy Pang on 02-16-2025 Troponin T.cardiac High sensitivity method [Mass/Vol] 88 ng/L Critically high <14 [facility] Comment on above: Critical Result(s) C alled at 1627: by: JOSH WORKMAN TO MARTA. Results read back by same. Troponin T.cardiac High sensitivity method [Mass/Vol] 94 ng/L Critically high <14 [facility] Comment on above: Delta: 71 on 5-1300Critical Result(s) Called at 1447: by: JOSH WORKMAN TO LIN. Results read back by same. White blood cell (WBC) count Ordered By: Magdy Pang on 02-16-2025 WBC (Bld) [#/Vol] 6.1 10*3/uL 4.4-11.0 [facility] CRP, High Sensitivity [id number] on 02-15-2025 CRP, HIGH SENS 41.42 mg/L High 0.00-3.00 [facility] Comment on above: Result Comment: Resu lts confirmed ondilution. Relative Risk for Future Cardiovascular Event Low <1.00 Average 1.00 - 3.00 High >3.00Performed at: - [facility] [id number] Director: Chuy Rizvi PhD, Phone: [phone] Performed By: #### L 101.9900, L501.9520, L501.7300, L100.0100, L501.7400, L500.4050, L501.5500, L3100.6270 ####[facility] [address] [place], [address] Absolute lymphocyte countOrd ered By: Vincent Flores on 02-13-2025 Lymphocytes Auto (Unsp spec) [#/Vol] 1.58 10*3/uL 0.83-4.51 [facility] Absolute neutrophil countOrd ered By: Vincent Flores on 02-13-2025 Neutrophils (Bld) [#/Vol] 5.1 10*3/uL 2.0-7.7 [facility] Anion gap in Serum or Plasma Ordered By: Vincent Flores on 02-13-2025 Anion gap [Moles/Vol] 17 mmol/L High 5-15 [facility] Automated lymphocyte count a s percentage of total leukocytesOrdered By: Vincent Flores on 02-13-2025 Lymphocytes/100 WBC Auto (Unsp spec) 20.6 % 19-41 [facility] BUN/creatinine ratioOrdered By: Vincent Flores on 02-13-2025 Urea nitrogen/Creatinine [Mass ratio] 27.4 mg/mg High 10-20 [facility] Basophil percentageOrdered B y: Vincent Flores on 02-13-2025 Basophils/100 WBC (Bld) 0.7 % 0-1 [facility] Bilirubin, totalOrdered By: Vincent Flores on 02-13-2025 Bilirubin [Mass/Vol] 1.18 mg/dL 0.00-1.30 [facility] Blood manual differential co mment interpretation (narrative result)Ordered By: Vincent Flores on 02-13-2025 Manual differential comment Cristhian (Bld) [Interp] SCANNED [facility] Blood polychromasia detectio n by light microscopyOrdered By: Vincent Flores on 02-13-2025 Polychromasia LM Ql (Bld) 1+ [facility] C-reactive protein measureme nt by high sensitivity methodOrdered By: Vnicent Flores on 02-13-2025 C-reactive protein measurement by high sensitivity method 41.42 mg/L High 0.00-3.00 [facility] Comment on above: Results confirmed on dilution. Relative Risk for Future Cardiovascular Event Low <1.00 Average 1.00 - 3.00 High >3.00Performed at: [facility] [id number] Director: Chuy Rizvi PhD, Phone: [phone] CBC W/Diff, Automatedon 02-02 HYPOCHROMASIA 2+ Normal [facility] Comment on above: Performed By: #### L 101.9900, L501.9520, L501.7300, L100.0100, L501.7400, L500.4050, L501.5500, L3100.7870 ####[facility] [address] [place], [address] Anisocytosis Ql (Bld) 2+ Normal [facility] Comment on above: Performed By: #### L 101.9900, L501.9520, L501.7300, L100.0100, L501.7400, L500.4050, L501.5500, L3100.7870 ####[facility] [address] [place], [address] POLYCHROMASIA 1+ Normal [facility] Comment on above: Performed By: #### L 101.9900, L501.9520, L501.7300, L100.0100, L501.7400, L500.4050, L501.5500, L3100.7870 ####[facility] [address] [place], [address] PLT EST ADEQUATE Normal ADEQ [facility] Comment on above: Performed By: #### L 101.9900, L501.9520, L501.7300, L100.0100, L501.7400, L500.4050, L501.5500, L3100.7870 ####[facility] [address] [place], [address] SMEAR COMMENT SCANNED Normal [facility] Comment on above: Performed By: #### L 101.9900, L501.9520, L501.7300, L100.0100, L501.7400, L500.4050, L501.5500, L3100.7870 ####[facility] [address] [place], [address] Carbon dioxide, total [Moles /volume] in Central venous bloodOrdered By: Vincent Flores on 02-13-2025 CO2 [Moles/Vol] 24.2 mmol/L 21.0-32.0 [facility] Chloride assayOrdered By: Ishmael Flores on 02-13-2025 Chloride [Moles/Vol] 91 mmol/L Low 98-108 [facility] Comprehensive Metabolic Prof ilon 02-13-2025 Albumin [Mass/Vol] 4.1 g/dL Normal 3.4-4.8 [facility] Comment on above: Performed By: #### L 101.9900, L501.9520, L501.7300, L100.0100, L501.7400, L500.4050, L501.5500, L3100.7870 ####[facility] [address] [place], [address] Albumin/Globulin [Mass ratio] 1.2 {ratio} Normal 0.9-2.4 [facility] Comment on above: Performed By: #### L 101.9900, L501.9520, L501.7300, L100.0100, L501.7400, L500.4050, L501.5500, L3100.7870 ####[facility] [address] [place], [place], [id number] ALK PHOS 109 U/L High 35-104 [facility] Comment on above: Performed By: #### L 101.9900, L501.9520, L501.7300, L100.0100, L501.7400, L500.4050, L501.5500, L3100.7870 ####[facility] [address] [place], [address] ALT [Catalytic activity/Vol] 11 U/L Normal <=34 [facility] Comment on above: Performed By: #### L 101.9900, L501.9520, L501.7300, L100.0100, L501.7400, L500.4050, L501.5500, L3100.7870 ####[facility] [address] [place], [address] AST [Catalytic activity/Vol] 26 U/L Normal <=31 [facility] Comment on above: Performed By: #### L 101.9900, L501.9520, L501.7300, L100.0100, L501.7400, L500.4050, L501.5500, L3100.7870 ####[facility] [address] [place], [address] Bilirubin [Mass/Vol] 1.18 mg/dL Normal 0.00-1.30 [facility] Comment on above: Performed By: #### L 101.9900, L501.9520, L501.7300, L100.0100, L501.7400, L500.4050, L501.5500, L3100.7870 ####[facility] [address] [place], [address] BUN/CRE 27.4 RATIO High 10-20 [facility] Comment on above: Performed By: #### L 101.9900, L501.9520, L501.7300, L100.0100, L501.7400, L500.4050, L501.5500, L3100.7870 ####[facility] [address] [place], [address] Calcium [Mass/Vol] 9.7 mg/dL Normal 7.6-11.0 [facility] Comment on above: Performed By: #### L 101.9900, L501.9520, L501.7300, L100.0100, L501.7400, L500.4050, L501.5500, L3100.7870 ####[facility] [address] [place], [address] Chloride [Moles/Vol] 91 mmol/L Low 98-108 [facility] Comment on above: Performed By: #### L 101.9900, L501.9520, L501.7300, L100.0100, L501.7400, L500.4050, L501.5500, L3100.7870 ####[facility] [address] [place], [place], [id number] CO2 [Moles/Vol] 24.2 mmol/L Normal 21.0-32.0 [facility] Comment on above: Performed By: #### L 101.9900, L501.9520, L501.7300, L100.0100, L501.7400, L500.4050, L501.5500, L3100.7870 ####[facility] [address] [place], [place], [id number] Creatinine [Mass/Vol] 2.25 mg/dL High 0.70-1.20 [facility] Comment on above: Performed By: #### L 101.9900, L501.9520, L501.7300, L100.0100, L501.7400, L500.4050, L501.5500, L3100.7870 ####[facility] [address] [place], [place], [id number] GAP 17 High 5-15 [facility] Comment on above: Performed By: #### L 101.9900, L501.9520, L501.7300, L100.0100, L501.7400, L500.4050, L501.5500, L3100.7870 ####[facility] [address] [place], [place], [address] GFR/1.73 sq M.predicted among non-blacks MDRD (S/P/Bld) [Vol rate/Area] 22 mL/min/{1.73_m2} Low >60 [facility] Comment on above: Result Comment: mL/m in/1.73m2 CKD-EPI Creatinine Equation (2020) Performed By: #### L 101.9900, L501.9520, L501.7300, L100.0100, L501.7400, L500.4050, L501.5500, L3100.7870 ####[facility] [address] [place], [address] Globulin (S) [Mass/Vol] 3.4 g/dL Normal 2.2-4.2 [facility] Comment on above: Performed By: #### L 101.9900, L501.9520, L501.7300, L100.0100, L501.7400, L500.4050, L501.5500, L3100.7870 ####[facility] [address] [place], [address] Glucose [Mass/Vol] 90 mg/dL Normal 70-99 [facility] Comment on above: Performed By: #### L 101.9900, L501.9520, L501.7300, L100.0100, L501.7400, L500.4050, L501.5500, L3100.7870 ####[facility] [address] [place], [address] Potassium [Moles/Vol] 3.5 mmol/L Normal 3.3-5.1 [facility] Comment on above: Performed By: #### L 101.9900, L501.9520, L501.7300, L100.0100, L501.7400, L500.4050, L501.5500, L3100.7870 ####[facility] [address] [place], [address] Sodium [Moles/Vol] 132 mmol/L Low 133-145 [facility] Comment on above: Performed By: #### L 101.9900, L501.9520, L501.7300, L100.0100, L501.7400, L500.4050, L501.5500, L3100.7870 ####[facility] [address] [place], [address] T PROT 7.4 g/dL Normal 5.9-8.4 [facility] Comment on above: Performed By: #### L 101.9900, L501.9520, L501.7300, L100.0100, L501.7400, L500.4050, L501.5500, L3100.7870 ####[facility] [address] [place], [place], [id number] Urea nitrogen [Mass/Vol] 62 mg/dL High 4-19 [facility] Comment on above: Performed By: #### L 101.9900, L501.9520, L501.7300, L100.0100, L501.7400, L500.4050, L501.5500, L3100.7870 ####[facility] [address] [place], [address] Eosinophil percentageOrdered By: Vincent Flores on 02-13-2025 Eosinophils/100 WBC (Bld) 1.4 % 0-5 [facility] Erythrocyte Sed Rateon 02-13 SED RATE 25 mm/hr Normal 0-30 [facility] Comment on above: Performed By: #### L 101.9900, L501.9520, L501.7300, L100.0100, L501.7400, L500.4050, L501.5500, L3100.7870 ####[facility] [address] [place], [address] Erythrocyte distribution wid th ratioOrdered By: Vincent Flores on 02-13-2025 Erythrocyte distribution width (RBC) [Ratio] 24.1 % High 11.6-14.6 [facility] Erythrocyte distribution wid th standard deviationOrdered By: Vincent Flores on 02-13-2025 Erythrocyte distribution width (RBC) [Ratio] 76.2 fl High 35.1-43.9 [facility] Erythrocyte sedimentation ra teOrdered By: Vincent Flores on 02-13-2025 ESR (Bld) [Velocity] 25 mm/h 0-30 [facility] Glomerular filtration rate ( GFR) estimation/1.73 sq m using serum, plasma, or whole bOrdered By: Vincent Flores on 02-13-2025 GFR/1.73 sq M.predicted among non-blacks MDRD (S/P/Bld) [Vol rate/Area] 22 mL/min/{1.73_m2} Low >60 [facility] Comment on above: mL/min/1.73m2 CKD-EP I Creatinine Equation (2020) Hematocrit Auto (Bld) [Volum e fraction]Ordered By: iVncent Flores 02-13-2025 Hematocrit (Bld) [Volume fraction] 31.1 % Low 37-47 [facility] Hemoglobin measurementOrdere d By: Vincent Flores 02-13-2025 Hemoglobin (Bld) [Mass/Vol] 9.8 g/dL Low 12.0-15.0 [facility] Hypochromatic red blood cell detectionOrdered By: Vincent Flores 02-13-2025 Hypochromia Ql (Bld) 2+ [facility] Immature granulocytes/100 WB C Auto (Bld)Ordered By: Vincent Flores 02-13-2025 Immature granulocytes/100 WBC (Bld) 0.300 % 0.0-0.9 [facility] Comment on above: IG% - Immature Granu locytes (promyelocytes, myelocytes and metamyelocytes) > 1% indicates that a LEFT SHIFT is Present. Laboratory - Chemistry and C hemistry - challengeOrdered By: Vincent Flores 02-13-2025 AST [Catalytic activity/Vol] 26 U/L <32 [facility] Laboratory - Hematology and Cell countsOrdered By: Vincent Flores 02-13-2025 Anisocytosis Ql (Bld) 2+ [facility] MCV (mean corpuscular volume ) determinationOrdered By: Vincent Flores 02-13-2025 MCV (RBC) [Entitic vol] 87.6 fL 81-99 [facility] Mean corpuscular hemoglobin (MCH) determinationOrdered By: Vincent Flores 02-13-2025 MCH (RBC) [Entitic mass] 27.6 pg 27.0-32.0 [facility] Mean corpuscular hemoglobin concentration (MCHC) determinationOrdered By: Vincent Flores 02-13-2025 MCHC (RBC) [Mass/Vol] 31.5 g/dL Low 32-36 [facility] Mean platelet volume determi nationOrdered By: Vincent Flores on 02-13-2025 Platelet mean volume (Bld) [Entitic vol] 10.1 fL 6.2-12.0 [facility] Monocyte percentageOrdered B y: Vincent Flores on 02-13-2025 Monocytes/100 WBC (Bld) 11.1 % High 0-10 [facility] Neutrophil percentageOrdered By: Vincent Flores on 02-13-2025 Neutrophils/100 WBC (Bld) 65.9 % 47-70 [facility] No Panel InformationOrdered By: Vincent Mark on 02-13-2025 2+ [facility] 26 U/L <32 [facility] Nucleated red blood cell per centageOrdered By: Vincent Mark on 02-13-2025 Nucleated RBC/100 WBC (Bld) [Ratio] 0 % 0-5 [facility] Osmolality urOrdered By: Vincent Flores on 02-13-2025 Osmolality (U) [Osmolality] 315 mOsm/KG >50 [facility] Comment on above: Normal Urine Referen ce Ranges Random: 50 - 1200 mOsm/kg H20 depending on fluid intake Random: >850 mOsm/kg after 12 hour fluid restriction 24 hour: ~300 - 900 mOsm/kg H2O Osmolality, Serumon 02-14-20 25 OSMOLALITY,SER 295 mOsm/KG Normal 280-301 [facility] Comment on above: Performed By: #### L 101.9900, L501.9520, L501.7300, L100.0100, L501.7400, L500.4050, L501.5500, L3100.7870 ####[facility] [address] [facility] [place], [place], [address] Osmolality, Urineon 02-14-20 25 OSMOLALITY,UR 315 mOsm/KG Normal [facility] Comment on above: Result Comment: Norm al Urine Reference Ranges Random: 50 - 1200 mOsm/kg H20 depending on fluid intake Random: >850 mOsm/kg after 12 hour fluid restriction 24 hour: 300 - 900 mOsm/kg H2O Performed By: #### L 101.9900, L501.9520, L501.7300, L100.0100, L501.7400, L500.4050, L501.5500, L3100.7870 ####[facility] [address] [place], [address] Platelet countOrdered By: Ishmael Flores on 02-13-2025 Platelets (Bld) [#/Vol] 163 10*3/uL 150-450 [facility] Platelet estimateOrdered By: Vincent Flores on 02-13-2025 Platelets LM Ql (Bld) ADEQUATE ADEQ [facility] Potassium measurement (mass/ volume)Ordered By: Vincent Flores on 02-13-2025 Potassium (Unsp spec) [Mass/Vol] 3.5 mmol/L 3.3-5.1 [facility] RBC Auto (Bld) [#/Vol]Ordere d By: Vincent Flores on 02-13-2025 RBC (Bld) [#/Vol] 3.55 10*6/uL Low 4.2-5.4 [facility] Serum creatinine measurement (mass/volume)Ordered By: Vincent Flores on 02-13-2025 Creatinine [Mass/Vol] 2.25 mg/dL High 0.70-1.20 [facility] Serum globulin measurementOr dered By: Vincent Flores 02-13-2025 Globulin (S) [Mass/Vol] 3.4 g/dL 2.2-4.2 [facility] Serum glucose measurement (m ass/volume)Ordered By: Vincent Flores 02-13-2025 Glucose [Mass/Vol] 90 mg/dL 70-99 [facility] Serum or plasma alanine craven otransferase (ALT) measurementOrdered By: Vincent Flores 02-13-2025 ALT [Catalytic activity/Vol] 11 U/L <35 [facility] Serum or plasma albumin bijan urement (mass/volume)Ordered By: Vincent Flores on 02-13-2025 Albumin [Mass/Vol] 4.1 g/dL 3.4-4.8 [facility] Serum or plasma albumin/glob ulin mass ratioOrdered By: Vincent Flores 02-13-2025 Albumin/Globulin [Mass ratio] 1.2 {ratio} 0.9-2.4 [facility] Serum or plasma alkaline da sphatase measurementOrdered By: Vincent Mark on 02-13-2025 ALP [Catalytic activity/Vol] 109 U/L High 35-104 [facility] Serum or plasma calcium bijan urement (mass/volume)Ordered By: Vincent Flores on 02-13-2025 Calcium [Mass/Vol] 9.7 mg/dL 7.6-11.0 [facility] Serum or plasma urea nitroge n measurement (mass/volume)Ordered By: Vincent Flores on 02-13-2025 Urea nitrogen [Mass/Vol] 62 mg/dL High 4-19 [facility] Sodium levelOrdered By: Vincent Mark on 02-13-2025 Sodium [Moles/Vol] 132 mmol/L Low 133-145 [facility] TSH DL <= 0.005 mIU/L QnOrde red By: Vincent Flores on 02-13-2025 TSH Qn 3.180 uIU/mL 0.300-4.200 [facility] Thyroid Stim Hormone (TSH)on 02-13-2025 TSH 3.180 uIU/mL Normal 0.300-4.200 [facility] Comment on above: Performed By: #### L 101.9900, L501.9520, L501.7300, L100.0100, L501.7400, L500.4050, L501.5500, L3100.7870 ####[facility] [address] [place], [address] Total proteinOrdered By: Vincent Flores on 02-13-2025 Protein [Mass/Vol] 7.4 g/dL 5.9-8.4 [facility] Urine Sodiumon 02-13-2025 Sodium (U) [Moles/Vol] 57 mmol/L Normal Not Establ. [facility] Comment on above: Performed By: #### L 101.9900, L501.9520, L501.7300, L100.0100, L501.7400, L500.4050, L501.5500, L3100.7870 ####[facility] [address] [place], [address] Urine sodium measurement (mo les/volume)Ordered By: Vincent Flores on 02-13-2025 Sodium (U) [Moles/Vol] 57 mmol/L Not Establ. [facility] White blood cell (WBC) count Ordered By: Vincent Flores on 02-13-2025 WBC (Bld) [#/Vol] 7.7 10*3/uL 4.4-11.0 [facility] Pacemaker Checkon 02-08-2025 Pacemaker Check Normal [facility] Anion gap in Serum or Plasma Ordered By: Juan Diego Huynh on 02-05-2025 Anion gap [Moles/Vol] 17 mmol/L High 5-15 [facility] BUN/creatinine ratioOrdered By: Juan Diego Huynh on 02-05-2025 Urea nitrogen/Creatinine [Mass ratio] 33.5 mg/mg High 10-20 [facility] Basic Metabolic Profile (BMP )on 02-05-2025 BUN/CRE 33.5 RATIO High 10-20 [facility] Comment on above: Performed By: #### L [phone], L500.2500 ####[facility] [id number] [place], [address] Calcium [Mass/Vol] 9.5 mg/dL Normal 7.6-11.0 [facility] Comment on above: Performed By: #### L 503.7505, L500.2500 ####[facility] [address] [place], [address] Chloride [Moles/Vol] 90 mmol/L Low 98-108 [facility] Comment on above: Performed By: #### L 503.7505, L500.2500 ####[facility] [address] [place], [address] CO2 [Moles/Vol] 22.7 mmol/L Normal 21.0-32.0 [facility] Comment on above: Performed By: #### L 503.7505, L500.2500 ####[facility] [address] [place], [address] Creatinine [Mass/Vol] 2.11 mg/dL High 0.70-1.20 [facility] Comment on above: Performed By: #### L 503.7505, L500.2500 ####[facility] [address] [place], [address] GAP 17 High 5-15 [facility] Comment on above: Performed By: #### L 503.7505, L500.2500 ####[facility] [address] [place], [address] GFR/1.73 sq M.predicted among non-blacks MDRD (S/P/Bld) [Vol rate/Area] 23 mL/min/{1.73_m2} Low >60 [facility] Comment on above: Result Comment: mL/m in/1.73m2 CKD-EPI Creatinine Equation (2020) Performed By: #### L 503.7505, L500.2500 ####[facility] [address] [place], [address] Glucose [Mass/Vol] 159 mg/dL High 70-99 [facility] Comment on above: Performed By: #### L 503.7505, L500.2500 ####[facility] [address] [place], [address] Potassium [Moles/Vol] 4.2 mmol/L Normal 3.3-5.1 [facility] Comment on above: Performed By: #### L 503.7505, L500.2500 ####[facility] [address] [place], [address] Sodium [Moles/Vol] 130 mmol/L Low 133-145 [facility] Comment on above: Performed By: #### L 503.7505, L500.2500 ####[facility] [address] [place], [address] Urea nitrogen [Mass/Vol] 71 mg/dL High 4-19 [facility] Comment on above: Performed By: #### L 503.7505, L500.2500 ####[facility] [address] [place], [address] Carbon dioxide, total [Moles /volume] in Central venous bloodOrdered By: Juan Diego Huynh on 02-05-2025 CO2 [Moles/Vol] 22.7 mmol/L 21.0-32.0 [facility] Cardiology Visit Reporton Cardiology Visit Report Normal [facility] Chloride assayOrdered By: Jennifer Huynh on 02-05-2025 Chloride [Moles/Vol] 90 mmol/L Low 98-108 [facility] Glomerular filtration rate ( GFR) estimation/1.73 sq m using serum, plasma, or whole bOrdered By: Juan Diego Huynh on 02-05-2025 GFR/1.73 sq M.predicted among non-blacks MDRD (S/P/Bld) [Vol rate/Area] 23 mL/min/{1.73_m2} Low >60 [facility] Comment on above: mL/min/1.73m2 CKD-EP I Creatinine Equation (2020) Natriuretic peptide.B prohor daria N-Terminal [Mass/volume] in Serum or PlasmaOrdered By: Juan Diego Huynh on 02-05-2025 Natriuretic peptide.B prohormone N-Terminal [Mass/Vol] 9503 pg/mL High <1800 [facility] Comment on above: Heart Failure Unlike ly: < 300 pg/mLHeart Failure Likely< 50 Years: > 450 pg/mL50-75 Years: > 900 pg/mL>75 Years: > 1800 pg/mL Potassium measurement (mass/ volume)Ordered By: Juan Diego Huynh on 02-05-2025 Potassium (Unsp spec) [Mass/Vol] 4.2 mmol/L 3.3-5.1 [facility] Pro- Brain NATRIURETIC PEPTI Drwe 02-05-2025 Natriuretic peptide B (Bld) [Mass/Vol] 9503 pg/mL High <=1800 [facility] Comment on above: Result Comment: Hear t Failure Unlikely: < 300 pg/mLHeart Failure Likely< 50 Years: > 450 pg/mL50-75 Years: > 900 pg/mL>75 Years: > 1800 pg/mL Performed By: #### L 503.7505, L500.2500 ####[facility] [address] [place], [address] Serum creatinine measurement (mass/volume)Ordered By: Juan Diego Huynh on 02-05-2025 Creatinine [Mass/Vol] 2.11 mg/dL High 0.70-1.20 [facility] Serum glucose measurement (m ass/volume)Ordered By: Juan Diego Huynh on 02-05-2025 Glucose [Mass/Vol] 159 mg/dL High 70-99 [facility] Serum or plasma calcium bijan urement (mass/volume)Ordered By: Juan Diego Huynh on 02-05-2025 Calcium [Mass/Vol] 9.5 mg/dL 7.6-11.0 [facility] Serum or plasma urea nitroge n measurement (mass/volume)Ordered By: Juan Diego Huynh on 02-05-2025 Urea nitrogen [Mass/Vol] 71 mg/dL High 4-19 [facility] Sodium levelOrdered By: Phi Huynh on 02-05-2025 Sodium [Moles/Vol] 130 mmol/L Low 133-145 [facility] Absolute lymphocyte countOrd ered By: Vincent Flores on 02-01-2025 Lymphocytes Auto (Unsp spec) [#/Vol] 1.38 10*3/uL 0.83-4.51 [facility] Absolute neutrophil countOrd ered By: Vincent Flores on 02-01-2025 Neutrophils (Bld) [#/Vol] 5.0 10*3/uL 2.0-7.7 [facility] Anion gap in Serum or Plasma Ordered By: Vincent Flores on 02-01-2025 Anion gap [Moles/Vol] 16 mmol/L High 5-15 [facility] Automated lymphocyte count a s percentage of total leukocytesOrdered By: Vincent Flores on 02-01-2025 Lymphocytes/100 WBC Auto (Unsp spec) 18.6 % Low 19-41 [facility] BUN/creatinine ratioOrdered By: Vincent Flores on 02-01-2025 Urea nitrogen/Creatinine [Mass ratio] 30.6 mg/mg High 10-20 [facility] Basophil percentageOrdered B y: Vincent Flores on 02-01-2025 Basophils/100 WBC (Bld) 0.7 % 0-1 [facility] Bilirubin, totalOrdered By: Vincent Flores on 02-01-2025 Bilirubin [Mass/Vol] 0.99 mg/dL 0.00-1.30 [facility] CBC W/Diff, Automatedon 01-04 Absolute Lymph 1.38 X10 3/uL Normal 0.83-4.51 [facility] Comment on above: Performed By: #### L 500.4050, L506.1001, L501.9520, L100.0100 ####[facility] [address] [place], [address] Absolute Neut 5.0 X10 3/uL Normal 2.0-7.7 [facility] Comment on above: Performed By: #### L 500.4050, L506.1001, L501.9520, L100.0100 ####[facility] [address] [place], [address] Basophils/100 WBC (Bld) 0.7 % Normal 0-1 [facility] Comment on above: Performed By: #### L 500.4050, L506.1001, L501.9520, L100.0100 ####[facility] [address] [place], [address] Eosinophils/100 WBC (Bld) 1.6 % Normal 0-5 [facility] Comment on above: Performed By: #### L 500.4050, L506.1001, L501.9520, L100.0100 ####[facility] [address] [place], [address] Erythrocyte distribution width (RBC) [Ratio] 19.9 % High 11.6-14.6 [facility] Comment on above: Performed By: #### L 500.4050, L506.1001, L501.9520, L100.0100 ####[facility] [address] [place], [address] Hematocrit (Bld) [Volume fraction] 29.6 % Low 37-47 [facility] Comment on above: Performed By: #### L 500.4050, L506.1001, L501.9520, L100.0100 ####[facility] [address] [place], [address] Hemoglobin (Bld) [Mass/Vol] 9.5 g/dL Low 12.0-15.0 [facility] Comment on above: Performed By: #### L 500.4050, L506.1001, L501.9520, L100.0100 ####[facility] [address] [place], [address] IG% 0.700 Normal 0.0-0.9 [facility] Comment on above: Result Comment: IG% - Immature Granulocytes (promyelocytes, myelocytes andmetamyelocytes) > 1% indicates that a LEFT SHIFT is Present. Performed By: #### L 500.4050, L506.1001, L501.9520, L100.0100 ####[facility] [address] [place], [address] Lymphocytes/100 WBC (Bld) 18.6 % Low 19-41 [facility] Comment on above: Performed By: #### L 500.4050, L506.1001, L501.9520, L100.0100 ####[facility] [address] [place], [address] MCH (RBC) [Entitic mass] 27.1 pg Normal 27.0-32.0 [facility] Comment on above: Performed By: #### L 500.4050, L506.1001, L501.9520, L100.0100 ####[facility] [address] [place], [address] MCHC (RBC) [Mass/Vol] 32.1 g/dL Normal 32-36 [facility] Comment on above: Performed By: #### L 500.4050, L506.1001, L501.9520, L100.0100 ####[facility] [address] [place], [address] MCV (RBC) [Entitic vol] 84.6 fL Normal 81-99 [facility] Comment on above: Performed By: #### L 500.4050, L506.1001, L501.9520, L100.0100 ####[facility] [address] [place], [address] Monocytes/100 WBC (Bld) 11.2 % High 0-10 [facility] Comment on above: Performed By: #### L 500.4050, L506.1001, L501.9520, L100.0100 ####[facility] [address] [place], [address] Neutrophils/100 WBC (Bld) 67.2 % Normal 47-70 [facility] Comment on above: Performed By: #### L 500.4050, L506.1001, L501.9520, L100.0100 ####[facility] [address] [place], [address] Nucleated RBC (Bld) [#/Vol] 0 10*3/uL Normal 0-5 [facility] Comment on above: Performed By: #### L 500.4050, L506.1001, L501.9520, L100.0100 ####[facility] [address] [place], [address] Platelet mean volume (Bld) [Entitic vol] 9.6 fL Normal 6.2-12.0 [facility] Comment on above: Performed By: #### L 500.4050, L506.1001, L501.9520, L100.0100 ####[facility] [address] [place], [address] Platelets (Bld) [#/Vol] 209 10*3/uL Normal 150-450 [facility] Comment on above: Performed By: #### L 500.4050, L506.1001, L501.9520, L100.0100 ####[facility] [address] [place], [address] RBC (Bld) [#/Vol] 3.50 10*6/uL Low 4.2-5.4 [facility] Comment on above: Performed By: #### L 500.4050, L506.1001, L501.9520, L100.0100 ####[facility] [address] [place], [address] RDW SD 61.5 fl High 35.1-43.9 [facility] Comment on above: Performed By: #### L 500.4050, L506.1001, L501.9520, L100.0100 ####[facility] [address] [place], [address] WBC (Bld) [#/Vol] 7.4 10*3/uL Normal 4.4-11.0 [facility] Comment on above: Performed By: #### L 500.4050, L506.1001, L501.9520, L100.0100 ####[facility] [address] [place], [address] Carbon dioxide, total [Moles /volume] in Central venous bloodOrdered By: Vincent Flores on 02-01-2025 CO2 [Moles/Vol] 25.1 mmol/L 21.0-32.0 [facility] Chloride assayOrdered By: Ishmael Flores on 02-01-2025 Chloride [Moles/Vol] 88 mmol/L Low 98-108 [facility] Comprehensive Metabolic Prof ilon 02-01-2025 Albumin [Mass/Vol] 4.2 g/dL Normal 3.4-4.8 [facility] Comment on above: Performed By: #### L 500.4050, L506.1001, L501.9520, L100.0100 ####[facility] [address] [place], [address] Albumin/Globulin [Mass ratio] 1.3 {ratio} Normal 0.9-2.4 [facility] Comment on above: Performed By: #### L 500.4050, L506.1001, L501.9520, L100.0100 ####[facility] [address] [place], [address] ALK PHOS 120 U/L High 35-104 [facility] Comment on above: Performed By: #### L 500.4050, L506.1001, L501.9520, L100.0100 ####[facility] [address] [place], [address] ALT [Catalytic activity/Vol] 11 U/L Normal <=34 [facility] Comment on above: Performed By: #### L 500.4050, L506.1001, L501.9520, L100.0100 ####[facility] [address] [place], [address] AST [Catalytic activity/Vol] 26 U/L Normal <=31 [facility] Comment on above: Performed By: #### L 500.4050, L506.1001, L501.9520, L100.0100 ####[facility] [address] [place], [address] Bilirubin [Mass/Vol] 0.99 mg/dL Normal 0.00-1.30 [facility] Comment on above: Performed By: #### L 500.4050, L506.1001, L501.9520, L100.0100 ####[facility] [address] [place], [address] BUN/CRE 30.6 RATIO High 10-20 [facility] Comment on above: Performed By: #### L 500.4050, L506.1001, L501.9520, L100.0100 ####[facility] [address] [place], [address] Calcium [Mass/Vol] 9.3 mg/dL Normal 7.6-11.0 [facility] Comment on above: Performed By: #### L 500.4050, L506.1001, L501.9520, L100.0100 ####[facility] [address] [place], [address] Chloride [Moles/Vol] 88 mmol/L Low 98-108 [facility] Comment on above: Performed By: #### L 500.4050, L506.1001, L501.9520, L100.0100 ####[facility] [address] [place], [address] CO2 [Moles/Vol] 25.1 mmol/L Normal 21.0-32.0 [facility] Comment on above: Performed By: #### L 500.4050, L506.1001, L501.9520, L100.0100 ####[facility] [address] [place], [address] Creatinine [Mass/Vol] 2.46 mg/dL High 0.70-1.20 [facility] Comment on above: Performed By: #### L 500.4050, L506.1001, L501.9520, L100.0100 ####[facility] [address] [place], [address] GAP 16 High 5-15 [facility] Comment on above: Performed By: #### L 500.4050, L506.1001, L501.9520, L100.0100 ####[facility] [address] [place], [address] GFR/1.73 sq M.predicted among non-blacks MDRD (S/P/Bld) [Vol rate/Area] 19 mL/min/{1.73_m2} Low >60 [facility] Comment on above: Result Comment: mL/m in/1.73m2 CKD-EPI Creatinine Equation (2020) Performed By: #### L 500.4050, L506.1001, L501.9520, L100.0100 ####[facility] [address] [place], [address] Globulin (S) [Mass/Vol] 3.2 g/dL Normal 2.2-4.2 [facility] Comment on above: Performed By: #### L 500.4050, L506.1001, L501.9520, L100.0100 ####[facility] [address] [place], [address] Glucose [Mass/Vol] 138 mg/dL High 70-99 [facility] Comment on above: Performed By: #### L 500.4050, L506.1001, L501.9520, L100.0100 ####[facility] [address] [place], [address] Potassium [Moles/Vol] 3.4 mmol/L Normal 3.3-5.1 [facility] Comment on above: Performed By: #### L 500.4050, L506.1001, L501.9520, L100.0100 ####[facility] [address] [place], [address] Sodium [Moles/Vol] 129 mmol/L Low 133-145 [facility] Comment on above: Performed By: #### L 500.4050, L506.1001, L501.9520, L100.0100 ####[facility] [address] [place], [address] T PROT 7.4 g/dL Normal 5.9-8.4 [facility] Comment on above: Performed By: #### L 500.4050, L506.1001, L501.9520, L100.0100 ####[facility] [address] [place], [address] Urea nitrogen [Mass/Vol] 75 mg/dL High 4-19 [facility] Comment on above: Performed By: #### L 500.4050, L506.1001, L501.9520, L100.0100 ####[facility] [address] [place], [address] Eosinophil percentageOrdered By: Vincent Flores on 02-01-2025 Eosinophils/100 WBC (Bld) 1.6 % 0-5 [facility] Erythrocyte distribution wid th ratioOrdered By: Vincent Flores on 02-01-2025 Erythrocyte distribution width (RBC) [Ratio] 19.9 % High 11.6-14.6 [facility] Erythrocyte distribution wid th standard deviationOrdered By: Vincent Flores on 02-01-2025 Erythrocyte distribution width (RBC) [Ratio] 61.5 fl High 35.1-43.9 [facility] Glomerular filtration rate ( GFR) estimation/1.73 sq m using serum, plasma, or whole bOrdered By: Vincent Flores on 02-01-2025 GFR/1.73 sq M.predicted among non-blacks MDRD (S/P/Bld) [Vol rate/Area] 19 mL/min/{1.73_m2} Low >60 [facility] Comment on above: mL/min/1.73m2 CKD-EP I Creatinine Equation (2020) Hematocrit Auto (Bld) [Volum e fraction]Ordered By: Vincent Flores on 02-01-2025 Hematocrit (Bld) [Volume fraction] 29.6 % Low 37-47 [facility] Hemoglobin measurementOrdere d By: Vincent Flores 02-01-2025 Hemoglobin (Bld) [Mass/Vol] 9.5 g/dL Low 12.0-15.0 [facility] Immature granulocytes/100 WB C Auto (Bld)Ordered By: Vincent Flores on 02-01-2025 Immature granulocytes/100 WBC (Bld) 0.700 % 0.0-0.9 [facility] Comment on above: IG% - Immature Granu locytes (promyelocytes, myelocytes and metamyelocytes) > 1% indicates that a LEFT SHIFT is Present. Laboratory - Chemistry and C hemistry - challengeOrdered By: Vincent Flores on 02-01-2025 AST [Catalytic activity/Vol] 26 U/L <32 [facility] MCV (mean corpuscular volume ) determinationOrdered By: Vincent Flores on 02-01-2025 MCV (RBC) [Entitic vol] 84.6 fL 81-99 [facility] Mean corpuscular hemoglobin (MCH) determinationOrdered By: Vincent Flores on 02-01-2025 MCH (RBC) [Entitic mass] 27.1 pg 27.0-32.0 [facility] Mean corpuscular hemoglobin concentration (MCHC) determinationOrdered By: Vincent Flores 02-01-2025 MCHC (RBC) [Mass/Vol] 32.1 g/dL 32-36 [facility] Mean platelet volume determi nationOrdered By: Vincent Flores on 02-01-2025 Platelet mean volume (Bld) [Entitic vol] 9.6 fL 6.2-12.0 [facility] Monocyte percentageOrdered B y: Vincent Flores on 02-01-2025 Monocytes/100 WBC (Bld) 11.2 % High 0-10 [facility] Neutrophil percentageOrdered By: Vincent Flores on 02-01-2025 Neutrophils/100 WBC (Bld) 67.2 % 47-70 [facility] No Panel InformationOrdered By: Vincent Flores on 02-01-2025 26 U/L <32 [facility] Nucleated red blood cell per centageOrdered By: Vincent Flores on 02-01-2025 Nucleated RBC/100 WBC (Bld) [Ratio] 0 % 0-5 [facility] Platelet countOrdered By: Ishmael Flores on 02-01-2025 Platelets (Bld) [#/Vol] 209 10*3/uL 150-450 [facility] Potassium measurement (mass/ volume)Ordered By: Vincent Flores on 02-01-2025 Potassium (Unsp spec) [Mass/Vol] 3.4 mmol/L 3.3-5.1 [facility] RBC Auto (Bld) [#/Vol]Ordere d By: Vincent Flores on 02-01-2025 RBC (Bld) [#/Vol] 3.50 10*6/uL Low 4.2-5.4 [facility] Serum creatinine measurement (mass/volume)Ordered By: Vincent Flores on 02-01-2025 Creatinine [Mass/Vol] 2.46 mg/dL High 0.70-1.20 [facility] Serum globulin measurementOr dered By: Vincent Flores 02-01-2025 Globulin (S) [Mass/Vol] 3.2 g/dL 2.2-4.2 [facility] Serum glucose measurement (m ass/volume)Ordered By: Vincent Flores 02-01-2025 Glucose [Mass/Vol] 138 mg/dL High 70-99 [facility] Serum or plasma alanine craven otransferase (ALT) measurementOrdered By: Vincent Flores 02-01-2025 ALT [Catalytic activity/Vol] 11 U/L <35 [facility] Serum or plasma albumin bijan urement (mass/volume)Ordered By: Vincent Flores 02-01-2025 Albumin [Mass/Vol] 4.2 g/dL 3.4-4.8 [facility] Serum or plasma albumin/glob ulin mass ratioOrdered By: Vincent Flores 02-01-2025 Albumin/Globulin [Mass ratio] 1.3 {ratio} 0.9-2.4 [facility] Serum or plasma alkaline da sphatase measurementOrdered By: Vincent Flores 02-01-2025 ALP [Catalytic activity/Vol] 120 U/L High 35-104 [facility] Serum or plasma calcium bijan urement (mass/volume)Ordered By: Vincent Flores 02-01-2025 Calcium [Mass/Vol] 9.3 mg/dL 7.6-11.0 [facility] Serum or plasma urea nitroge n measurement (mass/volume)Ordered By: Vincent Flores 02-01-2025 Urea nitrogen [Mass/Vol] 75 mg/dL High 4-19 [facility] Sodium levelOrdered By: Vincent Flores on 02-01-2025 Sodium [Moles/Vol] 129 mmol/L Low 133-145 [facility] TSH DL <= 0.005 mIU/L QnOrde red By: Vincent Flores on 02-01-2025 TSH Qn 4.710 uIU/mL High 0.300-4.200 [facility] Thyroid Stim Hormone (TSH)on 02-01-2025 TSH 4.710 uIU/mL High 0.300-4.200 [facility] Comment on above: Performed By: #### L 500.4050, L506.1001, L501.9520, L100.0100 ####[facility] [address] [place], [place], [address] Total proteinOrdered By: Vincent Flores on 02-01-2025 Protein [Mass/Vol] 7.4 g/dL 5.9-8.4 [facility] Vitamin D,25 Hydroxyon 02-01 Vitamin D 25-OH 36.3 ng/mL Normal 30-100 [facility] Comment on above: Result Comment: Haydee min D StatusDeficiency: <20 ng/mL (50nmol/L)Insufficiency: 20-30 ng/mL (50-75 nmol/L)Sufficiency: 30-100 ng/mL (75-250 nmol/L)Toxicity: >100 ng/mL (>250 nmol/L) Performed By: #### L 500.4050, L506.1001, L501.9520, L100.0100 ####[facility] [address] [place], [address] White blood cell (WBC) count Ordered By: Vincent Flores on 02-01-2025 WBC (Bld) [#/Vol] 7.4 10*3/uL 4.4-11.0 [facility] AST(SGOT)on 01-23-2025 AST [Catalytic activity/Vol] 24 U/L Normal <=31 [facility] Comment on above: Performed By: #### L 501.4100, L3890.6301, L501.4600, L100.0100, L501.9520, L001.0705, L501.2300, L501.4305, L501.4405, L500.4100, L506.1001 ####[facility] [address] [place], [place], [id number] Absolute lymphocyte countOrd ered By: Vincent Flores on 01-23-2025 Lymphocytes Auto (Unsp spec) [#/Vol] 1.55 10*3/uL 0.83-4.51 [facility] Absolute neutrophil countOrd ered By: Vincent Flores on 01-23-2025 Neutrophils (Bld) [#/Vol] 6.1 10*3/uL 2.0-7.7 [facility] Alanine Aminotransferas (SGP T)on 01-23-2025 ALT [Catalytic activity/Vol] 11 U/L Normal <=34 [facility] Comment on above: Performed By: #### L 501.4100, L3890.6301, L501.4600, L100.0100, L501.9520, L001.0705, L501.2300, L501.4305, L501.4405, L500.4100, L506.1001 ####[facility] [address] [place], [place], [id number] Alkaline Phosphataseon 01-23 ALK PHOS 126 U/L High 35-104 [facility] Comment on above: Performed By: #### L 501.4100, L3890.6301, L501.4600, L100.0100, L501.9520, L001.0705, L501.2300, L501.4305, L501.4405, L500.4100, L506.1001 ####[facility] [address] [facility] [address] [place], [place], [id number] Anion gap in Serum or Plasma Ordered By: Jeremy Mcgarry on 01-23-2025 Anion gap [Moles/Vol] 17 mmol/L High 5-15 [facility] Automated lymphocyte count a s percentage of total leukocytesOrdered By: Vincent Flores on 01-23-2025 Lymphocytes/100 WBC Auto (Unsp spec) 16.8 % Low 19-41 [facility] BUN/creatinine ratioOrdered By: Jeremy Mcgarry on 01-23-2025 Urea nitrogen/Creatinine [Mass ratio] 29.1 mg/mg High 10-20 [facility] Basophil percentageOrdered B y: Vincent Flores on 01-23-2025 Basophils/100 WBC (Bld) 0.8 % 0-1 [facility] Bilirubin, totalOrdered By: Vincent Flores on 01-23-2025 Bilirubin [Mass/Vol] 1.15 mg/dL 0.00-1.30 [facility] Blood manual differential co mment interpretation (narrative result)Ordered By: Vincent Flores on 01-23-2025 Manual differential comment Cristhian (Bld) [Interp] SCANNED [facility] Blood polychromasia detectio n by light microscopyOrdered By: Vincent Flores on 01-23-2025 Polychromasia LM Ql (Bld) 1+ [facility] CBC W/Diff, Automatedon 01-03 HYPOCHROMASIA 3+ Normal [facility] Comment on above: Performed By: #### L 501.4100, L3890.6301, L501.4600, L100.0100, L501.9520, L001.0705, L501.2300, L501.4305, L501.4405, L500.4100, L506.1001 ####[facility] [address] [place], [place], [id number] Anisocytosis Ql (Bld) 2+ Normal [facility] Comment on above: Performed By: #### L 501.4100, L3890.6301, L501.4600, L100.0100, L501.9520, L001.0705, L501.2300, L501.4305, L501.4405, L500.4100, L506.1001 ####[facility] [address] [place], [address] PLT EST ADEQUATE Normal ADEQ [facility] Comment on above: Performed By: #### L 501.4100, L3890.6301, L501.4600, L100.0100, L501.9520, L001.0705, L501.2300, L501.4305, L501.4405, L500.4100, L506.1001 ####[facility] [address] [place], [address] POLYCHROMASIA 1+ Normal [facility] Comment on above: Performed By: #### L 501.4100, L3890.6301, L501.4600, L100.0100, L501.9520, L001.0705, L501.2300, L501.4305, L501.4405, L500.4100, L506.1001 ####[facility] [address] [place], [address] SMEAR COMMENT SCANNED Normal [facility] Comment on above: Performed By: #### L 501.4100, L3890.6301, L501.4600, L100.0100, L501.9520, L001.0705, L501.2300, L501.4305, L501.4405, L500.4100, L506.1001 ####[facility] [address] [place], [address] CBC-Complete Blood Cnt No Di ffon 01-23-2025 SCAN INDICATED? YES- FLAGS NOTED Normal [facility] Comment on above: Result Comment: DR. FLORES ORDERED CBCD Performed By: #### L 501.0900, L501.5200, L500.3600, L100.0500 ####[facility] [id number] [place], [place], [id number] Erythrocyte distribution width (RBC) [Ratio] 20.1 % High 11.6-14.6 [facility] Comment on above: Result Comment: DR. FLORES ORDERED CBCD Performed By: #### L 501.0900, L501.5200, L500.3600, L100.0500 ####[facility] [address] [place], [address] Hematocrit (Bld) [Volume fraction] 28.2 % Low 37-47 [facility] Health Comment on above: Result Comment: DR. FLORES ORDERED CBCD Performed By: #### L 501.0900, L501.5200, L500.3600, L100.0500 ####[facility] [address] [place], [address] Hemoglobin (Bld) [Mass/Vol] 9.0 g/dL Low 12.0-15.0 [facility] Comment on above: Result Comment: DR. FLORES ORDERED CBCD Performed By: #### L 501.0900, L501.5200, L500.3600, L100.0500 ####[facility] [address] [place], [address] MCH (RBC) [Entitic mass] 28.1 pg Normal 27.0-32.0 [facility] Comment on above: Result Comment: DR. FLORES ORDERED CBCD Performed By: #### L 501.0900, L501.5200, L500.3600, L100.0500 ####[facility] [address] [place], [address] MCHC (RBC) [Mass/Vol] 31.9 g/dL Low 32-36 [facility] Comment on above: Result Comment: DR. FLORES ORDERED CBCD Performed By: #### L 501.0900, L501.5200, L500.3600, L100.0500 ####[facility] [address] [place], [address] MCV (RBC) [Entitic vol] 88.1 fL Normal 81-99 [facility] Comment on above: Result Comment: DR. FLORES ORDERED CBCD Performed By: #### L 501.0900, L501.5200, L500.3600, L100.0500 ####[facility] [address] [place], [address] Platelet mean volume (Bld) [Entitic vol] 9.8 fL Normal 6.2-12.0 [facility] Comment on above: Result Comment: DR. FLORES ORDERED CBCD Performed By: #### L 501.0900, L501.5200, L500.3600, L100.0500 ####[facility] [address] [place], [address] Platelets (Bld) [#/Vol] 214 10*3/uL Normal 150-450 [facility] Comment on above: Result Comment: DR. FLORES ORDERED CBCD Performed By: #### L 501.0900, L501.5200, L500.3600, L100.0500 ####[facility] [address] [place], [address] POSITIVE MORPH YES Abnormal [facility] Comment on above: Result Comment: DR. FLORES ORDERED CBCD Performed By: #### L 501.0900, L501.5200, L500.3600, L100.0500 ####[facility] [address] [place], [address] RBC (Bld) [#/Vol] 3.20 10*6/uL Low 4.2-5.4 [facility] Comment on above: Result Comment: DR. FLORES ORDERED CBCD Performed By: #### L 501.0900, L501.5200, L500.3600, L100.0500 ####[facility] [address] [place], [address] RDW SD 64.7 fl High 35.1-43.9 [facility] Comment on above: Result Comment: DR. FLORES ORDERED CBCD Performed By: #### L 501.0900, L501.5200, L500.3600, L100.0500 ####[facility] [address] [place], [address] WBC (Bld) [#/Vol] 8.9 10*3/uL Normal 4.4-11.0 [facility] Comment on above: Result Comment: DR. FLORES ORDERED CBCD Performed By: #### L 501.0900, L501.5200, L500.3600, L100.0500 ####[facility] [address] [place], [address] Calculated very low density lipoprotein (VLDL) cholesterol measurementOrdered By: Vincent Flores on 01-23-2025 Calculated very low density lipoprotein (VLDL) cholesterol measurement 10 mg/dL 5-40 [facility] Carbon dioxide, total [Moles /volume] in Central venous bloodOrdered By: Jeremy Mcgarry on 01-23-2025 CO2 [Moles/Vol] 23.7 mmol/L 21.0-32.0 [facility] Chloride assayOrdered By: Darío Mcgarry on 01-23-2025 Chloride [Moles/Vol] 91 mmol/L Low 98-108 [facility] Eosinophil percentageOrdered By: Vincent Flores on 01-23-2025 Eosinophils/100 WBC (Bld) 1.0 % 0-5 [facility] Erythrocyte distribution wid th ratioOrdered By: Vincent Flores on 01-23-2025 Erythrocyte distribution width (RBC) [Ratio] 20.2 % High 11.6-14.6 [facility] Erythrocyte distribution wid th standard deviationOrdered By: Vincent Flores on 01-23-2025 Erythrocyte distribution width (RBC) [Ratio] 65.1 fl High 35.1-43.9 [facility] Glomerular filtration rate ( GFR) estimation/1.73 sq m using serum, plasma, or whole bOrdered By: Jeremy Mcgarry on 01-23-2025 GFR/1.73 sq M.predicted among non-blacks MDRD (S/P/Bld) [Vol rate/Area] 25 mL/min/{1.73_m2} Low >60 [facility] Comment on above: mL/min/1.73m2 CKD-EP I Creatinine Equation (2020) Hematocrit Auto (Bld) [Volum e fraction]Ordered By: Vincent Flores on 01-23-2025 Hematocrit (Bld) [Volume fraction] 28.4 % Low 37-47 [facility] Hemoglobin measurementOrdere d By: Vincent Flores on 01-23-2025 Hemoglobin (Bld) [Mass/Vol] 9.4 g/dL Low 12.0-15.0 [facility] Hepatitis C Antibodyon 01-23 Hepatitis C Ab Non-Reactive Normal Nonreactive [facility] Comment on above: Result Comment: Reac tive: Presumptive evidence of antibodies to HCV. [facility].Non-Reactive: Antibodies to HCV were not detected; does notexclude the possibility of exposure to HCVReactive Results are presumptive evidence of antibodies toHCV. Follow CDC recommendations for supplemental testing.Order confirmation testing: HCV Quant by PCR testing -HCVPCR #[id number] Non Reactive: < 0.8 Equivocal: >/= 0.8 to < 1.0 Reactive: >/= 1.0The CDC requires that a reactive/equivocal HCV antibodyresult be sent out for confirmation. HCV Quant by PCRtesting. Performed By: #### L 501.4100, L3890.6301, L501.4600, L100.0100, L501.9520, L001.0705, L501.2300, L501.4305, L501.4405, L500.4100, L506.1001 ####[facility] [address] [place], [place], [id number] Hypochromatic red blood cell detectionOrdered By: Vincent Flores on 01-23-2025 Hypochromia Ql (Bld) 3+ [facility] Immature granulocytes/100 WB C Auto (Bld)Ordered By: Vincent Flores on 01-23-2025 Immature granulocytes/100 WBC (Bld) 0.300 % 0.0-0.9 [facility] Comment on above: IG% - Immature Granu locytes (promyelocytes, myelocytes and metamyelocytes) > 1% indicates that a LEFT SHIFT is Present. LDL calc ser/plasOrdered By: Vincent Flores on 01-23-2025 Cholesterol in LDL [Mass/Vol] 25 mg/dL [facility] Comment on above: Pnpvzgndgb=271-671 m g/dL & Higher Hzfo=427 mg/dL or greater Laboratory - Chemistry and C hemistry - challengeOrdered By: Vincent Flores on 01-23-2025 AST [Catalytic activity/Vol] 24 U/L <32 [facility] Laboratory - Hematology and Cell countsOrdered By: Vincent Flores on 01-23-2025 Anisocytosis Ql (Bld) 2+ [facility] Lipid Profileon 01-23-2025 CHOL:HDL 2.00 Normal [facility] Comment on above: Performed By: #### L 501.4100, L3890.6301, L501.4600, L100.0100, L501.9520, L001.0705, L501.2300, L501.4305, L501.4405, L500.4100, L506.1001 ####[facility] [address] [place], [place], [phone] Cholesterol [Mass/Vol] 72 mg/dL Normal <=200 [facility] Comment on above: Result Comment: Chol esterol level, Desirable <200 mg/dLBorderline high cholesterol 200-239 mg/dLHigh cholesterol >=240 mg/dLRecommendations of the NCEP Adult Treatment Panel for thefollowing risk-cutoff thresholds for the [place] Americanpulation. Performed By: #### L 501.4100, L3890.6301, L501.4600, L100.0100, L501.9520, L001.0705, L501.2300, L501.4305, L501.4405, L500.4100, L506.1001 ####[facility] [address] [place], [address] Cholesterol in HDL [Mass/Vol] 36 mg/dL Low [facility] Comment on above: Result Comment: Ligia onal Cholesterol Education Program (NCEP) guidelines:<40 mg/dL: Low HDL-cholesterol (major risk factor for CHD)>= 60 mg/dL: High HDL-cholesterol (negative risk factor forCHD)HDL-cholesterol is affected by a number of factors, e.g.smoking, exercise, hormones, sex and age. Performed By: #### L 501.4100, L3890.6301, L501.4600, L100.0100, L501.9520, L001.0705, L501.2300, L501.4305, L501.4405, L500.4100, L506.1001 ####[facility] [address] [place], [address] Cholesterol in LDL [Mass/Vol] 25 mg/dL Normal [facility] Comment on above: Result Comment: Bord dlvjnb=940-165 mg/dL Higher Wikr=498 mg/dL or greater Performed By: #### L 501.4100, L3890.6301, L501.4600, L100.0100, L501.9520, L001.0705, L501.2300, L501.4305, L501.4405, L500.4100, L506.1001 ####[facility] [address] [place], [address] Cholesterol in VLDL [Mass/Vol] 10 mg/dL Normal 5-40 [facility] Comment on above: Performed By: #### L 501.4100, L3890.6301, L501.4600, L100.0100, L501.9520, L001.0705, L501.2300, L501.4305, L501.4405, L500.4100, L506.1001 ####[facility] [address] [place], [place], [phone] Triglyceride [Mass/Vol] 52 mg/dL Normal [facility] Comment on above: Result Comment: The drugs N-Acetylcysteine and Metamizole may falselydepress this assay.Normal range: <150 mg/dLBorderline High: 150-199 mg/dLHigh: 200-499 mg/dLVery High: >500 mg/dL Performed By: #### L 501.4100, L3890.6301, L501.4600, L100.0100, L501.9520, L001.0705, L501.2300, L501.4305, L501.4405, L500.4100, L506.1001 ####[facility] [address] [place], [place], [address] MCV (mean corpuscular volume ) determinationOrdered By: Vincent Flores on 01-23-2025 MCV (RBC) [Entitic vol] 87.7 fL 81-99 [facility] Magnesiumon 01-23-2025 Magnesium [Mass/Vol] 2.0 mg/dL Normal 1.5-2.2 [facility] Comment on above: Order Comment: DR. Bruce LACEY ORDERED CBCDPLEASE CC COPY OF RENAL AND MG TO DR. FLORES Performed By: #### L 501.0900, L501.5200, L500.3600, L100.0500 ####[facility] [address] [place], [place], [phone] Magnesium measurement (mass/ volume)Ordered By: Jeremy Mcgarry on 01-23-2025 Magnesium (Unsp spec) [Mass/Vol] 2.0 mg/dL 1.5-2.2 [facility] Mean corpuscular hemoglobin (MCH) determinationOrdered By: Vincent Flores on 01-23-2025 MCH (RBC) [Entitic mass] 29.0 pg 27.0-32.0 [facility] Mean corpuscular hemoglobin concentration (MCHC) determinationOrdered By: Vincent Flores on 01-23-2025 MCHC (RBC) [Mass/Vol] 33.1 g/dL 32-36 [facility] Mean platelet volume determi nationOrdered By: Vincent Flores on 01-23-2025 Platelet mean volume (Bld) [Entitic vol] 9.9 fL 6.2-12.0 [facility] Monocyte percentageOrdered B y: Vincent Flores on 01-23-2025 Monocytes/100 WBC (Bld) 15.6 % High 0-10 [facility] Neutrophil percentageOrdered By: Vincent Flores on 01-23-2025 Neutrophils/100 WBC (Bld) 65.5 % 47-70 [facility] No Panel InformationOrdered By: Vincent Flores on 01-23-2025 2+ [facility] 24 U/L <32 [facility] Nucleated red blood cell per centageOrdered By: Vincent Flores on 01-23-2025 Nucleated RBC/100 WBC (Bld) [Ratio] 0 % 0-5 [facility] Phosphoruson 01-23-2025 Phosphate [Mass/Vol] 3.1 mg/dL Normal 2.7-4.5 [facility] Comment on above: Performed By: #### L 501.4100, L3890.6301, L501.4600, L100.0100, L501.9520, L001.0705, L501.2300, L501.4305, L501.4405, L500.4100, L506.1001 ####[facility] [address] [place], [address] Platelet countOrdered By: Ishmael Flores on 01-23-2025 Platelets (Bld) [#/Vol] 224 10*3/uL 150-450 [facility] Platelet estimateOrdered By: Vincent Flores on 01-23-2025 Platelets LM Ql (Bld) ADEQUATE ADEQ [facility] Potassium measurement (mass/ volume)Ordered By: Jeremy Mcgarry on 01-23-2025 Potassium (Unsp spec) [Mass/Vol] 3.8 mmol/L 3.3-5.1 [facility] Protein+Creatinine Ratio,Uri neon 01-23-2025 PROT:CRE RATIO 477 mg/g CRE High 0-200 [facility] Comment on above: Performed By: #### L 501.0900, L501.5200, L500.3600, L100.0500 ####[facility] [address] [place], [address] Protein (U) [Mass/Vol] 32.2 mg/dL High 0.0-12.0 [facility] Comment on above: Performed By: #### L 501.0900, L501.5200, L500.3600, L100.0500 ####[facility] [address] [place], [address] UR CREAT 67.50 mg/dL Normal 28.00-217.00 [facility] Comment on above: Performed By: #### L 501.0900, L501.5200, L500.3600, L100.0500 ####[facility] [address] [place], [address] Protein, Totalon 01-23-2025 T PROT 7.4 g/dL Normal 5.9-8.4 [facility] Comment on above: Performed By: #### L 501.4100, L3890.6301, L501.4600, L100.0100, L501.9520, L001.0705, L501.2300, L501.4305, L501.4405, L500.4100, L506.1001 ####[facility] [address] [place], [address] RBC Auto (Bld) [#/Vol]Ordere d By: Vincent Flores on 01-23-2025 RBC (Bld) [#/Vol] 3.24 10*6/uL Low 4.2-5.4 [facility] Random urine creatinine bijan urement (mass/volume)Ordered By: Jeremy Mcgarry on 01-23-2025 Creatinine Unsp time (U) [Mass/Vol] 67.50 mg/dL 28.00-217.00 [facility] Renal Profileon 01-23-2025 Albumin [Mass/Vol] 4.0 g/dL Normal 3.4-4.8 [facility] Comment on above: Order Comment: DR. Bruce LACEY ORDERED CBCDPLEASE CC COPY OF RENAL AND MG TO DR. FLORES Performed By: #### L 501.0900, L501.5200, L500.3600, L100.0500 ####[facility] [address] [place], [address] BUN/CRE 29.1 RATIO High 10-20 [facility] Comment on above: Order Comment: DR. Bruce LACEY ORDERED CBCDPLEASE CC COPY OF RENAL AND MG TO DR. FLORES Performed By: #### L 501.0900, L501.5200, L500.3600, L100.0500 ####[facility] [address] [place], [address] Calcium [Mass/Vol] 9.5 mg/dL Normal 7.6-11.0 [facility] Comment on above: Order Comment: DR. Bruce LACEY ORDERED CBCDPLEASE CC COPY OF RENAL AND MG TO DR. FLORES Performed By: #### L 501.0900, L501.5200, L500.3600, L100.0500 ####[facility] [address] [place], [address] Chloride [Moles/Vol] 91 mmol/L Low 98-108 [facility] Comment on above: Order Comment: DR. Bruce LACEY ORDERED CBCDPLEASE CC COPY OF RENAL AND MG TO DR. FLORES Performed By: #### L 501.0900, L501.5200, L500.3600, L100.0500 ####[facility] [address] [place], [address] CO2 [Moles/Vol] 23.7 mmol/L Normal 21.0-32.0 [facility] Comment on above: Order Comment: DR. Bruce LACEY ORDERED CBCDPLEASE CC COPY OF RENAL AND MG TO DR. FLORES Performed By: #### L 501.0900, L501.5200, L500.3600, L100.0500 ####[facility] [address] [place], [address] Creatinine [Mass/Vol] 1.97 mg/dL High 0.70-1.20 [facility] Comment on above: Order Comment: DR. Bruce LACEY ORDERED CBCDPLEASE CC COPY OF RENAL AND MG TO DR. FLORES Performed By: #### L 501.0900, L501.5200, L500.3600, L100.0500 ####[facility] [address] [place], [address] GAP 17 High 5-15 [facility] Comment on above: Order Comment: DR. Bruce LACEY ORDERED CBCDPLEASE CC COPY OF RENAL AND MG TO DR. FLORES Performed By: #### L 501.0900, L501.5200, L500.3600, L100.0500 ####[facility] [address] [place], [address] GFR/1.73 sq M.predicted among non-blacks MDRD (S/P/Bld) [Vol rate/Area] 25 mL/min/{1.73_m2} Low >60 [facility] Comment on above: Order Comment: DR. Bruce LACEY ORDERED CBCDPLEASE CC COPY OF RENAL AND MG TO DR. FLORES Result Comment: mL/m in/1.73m2 CKD-EPI Creatinine Equation (2020) Performed By: #### L 501.0900, L501.5200, L500.3600, L100.0500 ####[facility] [address] [place], [address] Glucose [Mass/Vol] 105 mg/dL High 70-99 [facility] Comment on above: Order Comment: DR. Bruce LACEY ORDERED CBCDPLEASE CC COPY OF RENAL AND MG TO DR. FLORES Performed By: #### L 501.0900, L501.5200, L500.3600, L100.0500 ####[facility] [address] [place], [address] Phosphate [Mass/Vol] 3.1 mg/dL Normal 2.7-4.5 [facility] Comment on above: Order Comment: DR. Bruce LACEY ORDERED CBCDPLEASE CC COPY OF RENAL AND MG TO DR. FLORES Performed By: #### L 501.0900, L501.5200, L500.3600, L100.0500 ####[facility] [address] [place], [address] Potassium [Moles/Vol] 3.8 mmol/L Normal 3.3-5.1 [facility] Comment on above: Order Comment: DR. Bruce LACEY ORDERED CBCDPLEASE CC COPY OF RENAL AND MG TO DR. FLORES Performed By: #### L 501.0900, L501.5200, L500.3600, L100.0500 ####[facility] [address] [place], [address] Sodium [Moles/Vol] 131 mmol/L Low 133-145 [facility] Comment on above: Order Comment: DR. Bruce LACEY ORDERED CBCDPLEASE CC COPY OF RENAL AND MG TO DR. FLORES Performed By: #### L 501.0900, L501.5200, L500.3600, L100.0500 ####[facility] [address] [place], [address] Urea nitrogen [Mass/Vol] 57 mg/dL High 4-19 [facility] Comment on above: Order Comment: DR. Bruce LACEY ORDERED CBCDPLEASE CC COPY OF RENAL AND MG TO DR. FLORES Performed By: #### L 501.0900, L501.5200, L500.3600, L100.0500 ####[facility] [address] [place], [address] Screening total cholesterol/ high density lipoprotein (HDL) cholesterol ratioOrdered By: Vincent Flores on 01-23-2025 Cholesterol.total/Gin sterol in HDL [Mass ratio] 2.00 {ratio} [facility] Serum creatinine measurement (mass/volume)Ordered By: Jeremy Mcgarry on 01-23-2025 Creatinine [Mass/Vol] 1.97 mg/dL High 0.70-1.20 [facility] Serum glucose measurement (m ass/volume)Ordered By: Jeremy Mcgarry on 01-23-2025 Glucose [Mass/Vol] 105 mg/dL High 70-99 [facility] Serum or plasma alanine craven otransferase (ALT) measurementOrdered By: Vincent Flores on 01-23-2025 ALT [Catalytic activity/Vol] 11 U/L <35 [facility] Serum or plasma albumin bijan urement (mass/volume)Ordered By: Jeremy Mcgarry on 01-23-2025 Albumin [Mass/Vol] 4.0 g/dL 3.4-4.8 [facility] Serum or plasma alkaline da sphatase measurementOrdered By: Vincent Flores on 01-23-2025 ALP [Catalytic activity/Vol] 126 U/L High 35-104 [facility] Serum or plasma calcium bijan urement (mass/volume)Ordered By: Jeremy Mcgarry on 01-23-2025 Calcium [Mass/Vol] 9.5 mg/dL 7.6-11.0 [facility] Serum or plasma cholesterol in HDL measurement (mass/volume)Ordered By: Vincent Flores on 01-23-2025 Cholesterol in HDL [Mass/Vol] 36 mg/dL Low >40 [facility] Comment on above: National Cholesterol Education Program (NCEP) guidelines:<40 mg/dL: Low HDL-cholesterol (major risk factor for CHD)>= 60 mg/dL: High HDL-cholesterol (negative risk factor for CHD)HDL-cholesterol is affected by a number of factors, e.g. smoking, exercise, hormones, sex and age. Serum or plasma cholesterol measurement (mass/volume)Ordered By: Vincent Flores on 01-23-2025 Cholesterol [Mass/Vol] 72 mg/dL <201 [facility] Comment on above: Cholesterol level, D esirable <200 mg/dLBorderline high cholesterol 200-239 mg/dLHigh cholesterol >=240 mg/dLRecommendations of the NCEP Adult Treatment Panel for the following risk-cutoff thresholds for the [place] population. Serum or plasma urea nitroge n measurement (mass/volume)Ordered By: Jeremy Mcgarry on 01-23-2025 Urea nitrogen [Mass/Vol] 57 mg/dL High 4-19 [facility] Sodium levelOrdered By: Alvaro Mcgarry on 01-23-2025 Sodium [Moles/Vol] 131 mmol/L Low 133-145 [facility] TSH DL <= 0.005 mIU/L QnOrde red By: Vincent Flores on 01-23-2025 TSH Qn 6.900 uIU/mL High 0.300-4.200 [facility] Thyroid Stim Hormone (TSH)on 01-23-2025 TSH 6.900 uIU/mL High 0.300-4.200 [facility] Comment on above: Performed By: #### L 501.4100, L3890.6301, L501.4600, L100.0100, L501.9520, L001.0705, L501.2300, L501.4305, L501.4405, L500.4100, L506.1001 ####[facility] [address] [place], [place], [id number] Total Bilirubinon 01-23-2025 Bilirubin [Mass/Vol] 1.15 mg/dL Normal 0.00-1.30 [facility] Comment on above: Performed By: #### L 501.4100, L3890.6301, L501.4600, L100.0100, L501.9520, L001.0705, L501.2300, L501.4305, L501.4405, L500.4100, L506.1001 ####[facility] [address] [place], [place], [id number] Total proteinOrdered By: Vincent Flores on 01-23-2025 Protein [Mass/Vol] 7.4 g/dL 5.9-8.4 [facility] Triglycerides measurementOrd ered By: Vincent Flores on 01-23-2025 Triglyceride [Mass/Vol] 52 mg/dL <199 [facility] Comment on above: The drugs N-Acetylcy steine and Metamizole may falsely depress this assay. Normal range: <150 mg/dLBorderline High: 150-199 mg/dLHigh: 200-499 mg/dLVery High: >500 mg/dL Urine protein measurement (m ass/volume)Ordered By: Jeremy Mcgarry on 01-23-2025 Protein (U) [Mass/Vol] 32.2 mg/dL High 0.0-12.0 [facility] Urine protein/creatinine mas s ratioOrdered By: Jeremy Mcgarry on 01-23-2025 Protein/Creatinine (U) [Mass ratio] 477 mg/g CRE High 0-200 [facility] Vitamin D,25 Hydroxyon 01-23 Vitamin D 25-OH 34.9 ng/mL Normal 30-100 [facility] Comment on above: Result Comment: Haydee min D StatusDeficiency: <20 ng/mL (50nmol/L)Insufficiency: 20-30 ng/mL (50-75 nmol/L)Sufficiency: 30-100 ng/mL (75-250 nmol/L)Toxicity: >100 ng/mL (>250 nmol/L) Performed By: #### L 501.4100, L3890.6301, L501.4600, L100.0100, L501.9520, L001.0705, L501.2300, L501.4305, L501.4405, L500.4100, L506.1001 ####[facility] [address] [place], [address] White blood cell (WBC) count Ordered By: Vincent Flores on 01-23-2025 WBC (Bld) [#/Vol] 9.3 10*3/uL 4.4-11.0 [facility] Anion gap in Serum or Plasma Ordered By: Dianne Stovall on 01-11-2025 Anion gap [Moles/Vol] 13 mmol/L 5-15 [facility] BUN/creatinine ratioOrdered By: Dianne Stovall on 01-11-2025 Urea nitrogen/Creatinine [Mass ratio] 20.6 mg/mg High 04-23 [facility] Basic Metabolic Profile (BMP )on 01-11-2025 BUN/CRE 20.6 RATIO High 04-23 [facility] Comment on above: Performed By: #### L 500.2500 ####[facility] [address] [place], [address] Calcium [Mass/Vol] 9.0 mg/dL Normal 7.6-11.0 [facility] Comment on above: Performed By: #### L 500.2500 ####[facility] [address] [place], [address] Chloride [Moles/Vol] 95 mmol/L Low 98-108 [facility] Comment on above: Performed By: #### L 500.2500 ####[facility] [address] [place], [address] CO2 [Moles/Vol] 25.5 mmol/L Normal 21.0-32.0 [facility] Comment on above: Performed By: #### L 500.2500 ####[facility] [address] [place], [address] Creatinine [Mass/Vol] 1.97 mg/dL High 0.70-1.20 [facility] Comment on above: Performed By: #### L 500.2500 ####[facility] [address] [place], [address] ECRCL 21.99 ml/min Low 50-250 [facility] Comment on above: Performed By: #### L 500.2500 ####[facility] [address] [place], [address] GAP 13 Normal 5-15 [facility] Comment on above: Performed By: #### L 500.2500 ####[facility] [address] [place], [address] GFR/1.73 sq M.predicted among non-blacks MDRD (S/P/Bld) [Vol rate/Area] 25 mL/min/{1.73_m2} Low >60 [facility] Comment on above: Result Comment: mL/m in/1.73m2 CKD-EPI Creatinine Equation (2020) Performed By: #### L 500.2500 ####[facility] [address] [place], [address] Glucose [Mass/Vol] 117 mg/dL High 70-99 [facility] Comment on above: Performed By: #### L 500.2500 ####[facility] [address] [place], [address] Potassium [Moles/Vol] 4.4 mmol/L Normal 3.3-5.1 [facility] Comment on above: Performed By: #### L 500.2500 ####[facility] [address] [place], [address] Sodium [Moles/Vol] 134 mmol/L Normal 133-145 [facility] Comment on above: Performed By: #### L 500.2500 ####[facility] [address] [place], [address] Urea nitrogen [Mass/Vol] 41 mg/dL High 4-19 [facility] Comment on above: Performed By: #### L 500.2500 ####[facility] [address] [place], [address] Bedside Glucoseon 01-11-2025 FINGERSTICK GLU 116 mg/dL High 74-106 [facility] Comment on above: Result Comment: JOHNSON MCCORMACK OF PATIENT CARE PER NURSING PROTOCOL Performed By: #### L 501.080 ####[facility] [address] [place], [address] Carbon dioxide, total [Moles /volume] in Central venous bloodOrdered By: Dianne Stovall on 01-11-2025 CO2 [Moles/Vol] 25.5 mmol/L 21.0-32.0 [facility] Chloride assayOrdered By: Luis Stovall on 01-11-2025 Chloride [Moles/Vol] 95 mmol/L Low 98-108 [facility] Discharge Instructionon 01-02 Discharge Instruction Normal [facility] Glomerular filtration rate ( GFR) estimation/1.73 sq m using serum, plasma, or whole bOrdered By: Dianne Stovall on 01-11-2025 GFR/1.73 sq M.predicted among non-blacks MDRD (S/P/Bld) [Vol rate/Area] 25 mL/min/{1.73_m2} Low >60 [facility] Comment on above: mL/min/1.73m2 CKD-EP I Creatinine Equation (2020) Glucose measurement at [facility] deOrdered By: Dianne Stovall on 01-11-2025 Glucose [Mass/Vol] 116 mg/dL High 74-106 [facility] Comment on above: MANAGEMENT OF PATIEN T CARE PER NURSING PROTOCOL Potassium measurement (mass/ volume)Ordered By: Dianne Stovall on 01-11-2025 Potassium (Unsp spec) [Mass/Vol] 4.4 mmol/L 3.3-5.1 [facility] Serum creatinine measurement (mass/volume)Ordered By: Dianne Stovall on 01-11-2025 Creatinine [Mass/Vol] 1.97 mg/dL High 0.70-1.20 [facility] Serum glucose measurement (m ass/volume)Ordered By: Dianne Stovall on 01-11-2025 Glucose [Mass/Vol] 117 mg/dL High 70-99 [facility] Serum or plasma calcium bijan urement (mass/volume)Ordered By: Dianne Stovall on 01-11-2025 Calcium [Mass/Vol] 9.0 mg/dL 7.6-11.0 [facility] Serum or plasma urea nitroge n measurement (mass/volume)Ordered By: Dianne Stovall on 01-11-2025 Urea nitrogen [Mass/Vol] 41 mg/dL High 4-19 [facility] Sodium levelOrdered By: Dianne Stovall on 01-11-2025 Sodium [Moles/Vol] 134 mmol/L 133-145 [facility] Bedside Glucoseon 01-10-2025 FINGERSTICK GLU 126 mg/dL High 74-106 [facility] Comment on above: Result Comment: JOHNSON MCCORMACK OF PATIENT CARE PER NURSING PROTOCOL Performed By: #### L 501.080 ####[facility] [address] [place], [address] FINGERSTICK GLU 133 mg/dL High 74-106 [facility] Comment on above: Result Comment: JOHNSON GEMENT OF PATIENT CARE PER NURSING PROTOCOL Performed By: #### L 501.080 ####[facility] [address] [place], [address] FINGERSTICK GLU 134 mg/dL High 74-106 [facility] Comment on above: Result Comment: JOHNSON GEMENT OF PATIENT CARE PER NURSING PROTOCOL Performed By: #### L 501.080 ####[facility] [address] [place], [address] Basic Metabolic Profile (BMP )on 01-09-2025 BUN/CRE 23.6 RATIO High 10-20 [facility] Comment on above: Performed By: #### L 500.2500 ####[facility] [address] [place], [address] Calcium [Mass/Vol] 8.9 mg/dL Normal 7.6-11.0 [facility] Comment on above: Performed By: #### L 500.2500 ####[facility] [address] [place], [address] Chloride [Moles/Vol] 95 mmol/L Low 98-108 [facility] Comment on above: Performed By: #### L 500.2500 ####[facility] [address] [place], [address] CO2 [Moles/Vol] 24.5 mmol/L Normal 21.0-32.0 [facility] Comment on above: Performed By: #### L 500.2500 ####[facility] [address] [place], [address] Creatinine [Mass/Vol] 1.85 mg/dL High 0.70-1.20 [facility] Comment on above: Performed By: #### L 500.2500 ####[facility] [address] [place], [address] ECRCL 23.14 ml/min Low 50-250 [facility] Comment on above: Performed By: #### L 500.2500 ####[facility] [address] [place], [address] GAP 13 Normal 5-15 [facility] Comment on above: Performed By: #### L 500.2500 ####[facility] [address] [place], [address] GFR/1.73 sq M.predicted among non-blacks MDRD (S/P/Bld) [Vol rate/Area] 27 mL/min/{1.73_m2} Low >60 [facility] Comment on above: Result Comment: mL/m in/1.73m2 CKD-EPI Creatinine Equation (2020) Performed By: #### L 500.2500 ####[facility] [address] [place], [address] Glucose [Mass/Vol] 135 mg/dL High 70-99 [facility] Comment on above: Performed By: #### L 500.2500 ####[facility] [address] [place], [address] Potassium [Moles/Vol] 4.5 mmol/L Normal 3.3-5.1 [facility] Comment on above: Performed By: #### L 500.2500 ####[facility] [address] [place], [address] Sodium [Moles/Vol] 133 mmol/L Normal 133-145 [facility] Comment on above: Performed By: #### L 500.2500 ####[facility] [address] [place], [address] Urea nitrogen [Mass/Vol] 44 mg/dL High 4-19 [facility] Comment on above: Performed By: #### L 500.2500 ####[facility] [address] [place], [address] Bedside Glucoseon 01-09-2025 FINGERSTICK GLU 111 mg/dL High 74-106 [facility] Comment on above: Result Comment: JOHNSON GEMENT OF PATIENT CARE PER NURSING PROTOCOL Performed By: #### L 501.080 ####[facility] [address] [place], [address] FINGERSTICK GLU 214 mg/dL High 74-106 [facility] Comment on above: Result Comment: JOHNSON GEMENT OF PATIENT CARE PER NURSING PROTOCOL Performed By: #### L 501.080 ####[facility] [address] [place], [address] FINGERSTICK GLU 132 mg/dL High 74-106 [facility] Comment on above: Result Comment: JOHNSON GEMENT OF PATIENT CARE PER NURSING PROTOCOL Performed By: #### L 501.080 ####[facility] [address] [place], [address] Absolute lymphocyte countOrd ered By: Radha Heller on 01-08-2025 Lymphocytes Auto (Unsp spec) [#/Vol] 2.11 10*3/uL 0.83-4.51 [facility] Absolute neutrophil countOrd ered By: Radha Heller on 01-08-2025 Neutrophils (Bld) [#/Vol] 3.0 10*3/uL 2.0-7.7 [facility] Automated lymphocyte count a s percentage of total leukocytesOrdered By: Radha Heller on 01-08-2025 Lymphocytes/100 WBC Auto (Unsp spec) 33.8 % 19-41 [facility] Basic Metabolic Profile (BMP )on 01-08-2025 BUN/CRE 24.9 RATIO High 10-20 [facility] Comment on above: Performed By: #### L 501.5200, L501.9520, L100.0100, L500.2500, L500.4100 ####[facility] [address] [place], [address] Calcium [Mass/Vol] 8.8 mg/dL Normal 7.6-11.0 [facility] Comment on above: Performed By: #### L 501.5200, L501.9520, L100.0100, L500.2500, L500.4100 ####[facility] [address] [place], [address] Chloride [Moles/Vol] 93 mmol/L Low 98-108 [facility] Comment on above: Performed By: #### L 501.5200, L501.9520, L100.0100, L500.2500, L500.4100 ####[facility] [address] [place], [address] CO2 [Moles/Vol] 25.7 mmol/L Normal 21.0-32.0 [facility] Comment on above: Performed By: #### L 501.5200, L501.9520, L100.0100, L500.2500, L500.4100 ####[facility] [address] [place], [address] Creatinine [Mass/Vol] 1.79 mg/dL High 0.70-1.20 [facility] Comment on above: Performed By: #### L 501.5200, L501.9520, L100.0100, L500.2500, L500.4100 ####[facility] [address] [place], [address] ECRCL 23.72 ml/min Low 50-250 [facility] Comment on above: Performed By: #### L 501.5200, L501.9520, L100.0100, L500.2500, L500.4100 ####[facility] [address] [place], [address] GAP 12 Normal 5-15 [facility] Comment on above: Performed By: #### L 501.5200, L501.9520, L100.0100, L500.2500, L500.4100 ####[facility] [address] [place], [address] GFR/1.73 sq M.predicted among non-blacks MDRD (S/P/Bld) [Vol rate/Area] 28 mL/min/{1.73_m2} Low >60 [facility] Comment on above: Result Comment: mL/m in/1.73m2 CKD-EPI Creatinine Equation (2020) Performed By: #### L 501.5200, L501.9520, L100.0100, L500.2500, L500.4100 ####[facility] [address] [place], [address] Glucose [Mass/Vol] 129 mg/dL High 70-99 [facility] Comment on above: Performed By: #### L 501.5200, L501.9520, L100.0100, L500.2500, L500.4100 ####[facility] [address] [place], [address] Potassium [Moles/Vol] 4.1 mmol/L Normal 3.3-5.1 [facility] Comment on above: Performed By: #### L 501.5200, L501.9520, L100.0100, L500.2500, L500.4100 ####[facility] [address] [place], [address] Sodium [Moles/Vol] 130 mmol/L Low 133-145 [facility] Comment on above: Performed By: #### L 501.5200, L501.9520, L100.0100, L500.2500, L500.4100 ####[facility] [address] [place], [address] Urea nitrogen [Mass/Vol] 45 mg/dL High 4-19 [facility] Comment on above: Performed By: #### L 501.5200, L501.9520, L100.0100, L500.2500, L500.4100 ####[facility] [address] [place], [address] Basophil percentageOrdered B y: Radha Heller on 01-08-2025 Basophils/100 WBC (Bld) 1.0 % 0-1 [facility] Bedside Glucoseon 01-08-2025 FINGERSTICK GLU 184 mg/dL High 74-106 [facility] Comment on above: Result Comment: JOHNSON GEMENT OF PATIENT CARE PER NURSING PROTOCOL Performed By: #### L 501.080 ####[facility] [address] [place], [address] FINGERSTICK GLU 136 mg/dL High 74-106 [facility] Comment on above: Result Comment: JOHNSON GEMENT OF PATIENT CARE PER NURSING PROTOCOL Performed By: #### L 501.080 ####[facility] [address] [place], [address] FINGERSTICK GLU 124 mg/dL High 74-106 [facility] Comment on above: Result Comment: JOHNSON GEMENT OF PATIENT CARE PER NURSING PROTOCOL Performed By: #### L 501.080 ####[facility] [address] [place], [address] Blood manual differential co mment interpretation (narrative result)Ordered By: Radha Heller on 01-08-2025 Manual differential comment Cristhian (Bld) [Interp] SCANNED [facility] CBC W/Diff, Automatedon RED CELL MORPH NORM C+C Normal NORM C C [facility] Comment on above: Performed By: #### L 501.5200, L501.9520, L100.0100, L500.2500, L500.4100 ####[facility] [address] [place], [address] PLT EST ADEQUATE Normal ADEQ [facility] Comment on above: Performed By: #### L 501.5200, L501.9520, L100.0100, L500.2500, L500.4100 ####[facility] [address] [place], [address] SMEAR COMMENT SCANNED Normal [facility] Comment on above: Performed By: #### L 501.5200, L501.9520, L100.0100, L500.2500, L500.4100 ####[facility] [address] [place], [address] Calculated very low density lipoprotein (VLDL) cholesterol measurementOrdered By: Radha Heller on 01-08-2025 Calculated very low density lipoprotein (VLDL) cholesterol measurement 14 mg/dL 5-40 [facility] Carotid Duplex Ultrasoundon 01-08-2025 Carotid Duplex Ultrasound Normal [facility] Consultation - Nephrologyon 01-08-2025 Consultation - Nephrology Normal [facility] Discharge Instructionon Discharge Instruction Normal [facility] Duplex ultrasound of carotid artery reportOrdered By: Abundio Turcios on 01-08-2025 Study report [facility] [address] [place] [address] Carotid Duplex Ultrasound 01/08/25 0841 MR#: [id number] Acct: [id number] Name: BERTA SANCHES Rep #:[id number] : [...] the left vertebral artery. Procedure Carotid Duplex 45014. This is a Carotid Duplex examination using [...] 1244 Date _ Abundio Turcios MD CC: OCC MED PHYSICIANSammy Collazo; Dr. Carla Ha DO; Dr. Dianne Stovall, ~ Date Dictated: 01/08/25 0841 Date Transcribed: 01/08/25 1244 Holistic Nutritionist: Signed [facility] Work Phone: Echocardiogram study reportO rdered By: Yaniv Masters on 01-08-2025 Study report [facility] [address] [place] [address] Echo Complete 01/08/25 1058 MR#: [id number] Acct: [id number] Name: BERTA SANCHES Rep #:[id number] : 1945 79 From: Yaniv Molina Attending Dr: Dr. Dianne Stovall DO Status: ADM IN Ordering Dr: Radha Heller MD Date: Location: [facility] Sex: F C Admitted: 01/07/25 Reason For [...] Dictated: 01/08/25 1058 Date Transcribed: 01/08/25 1302 Holistic Nutritionist: Signed [facility] Work Phone: Electrocardiogram reportOrde red By: Yaniv Masters on 01-08-2025 EKG study [facility] [address] [place] [address] 12 Lead EKG 01/07/25 1257 MR#: [id number] Acct: [id number] Name: BERTA SANCHES SCOTTIE Rep #:[id number] : 1945 79 From: Yaniv Masters MD Attending Dr: Dr. Dianne Stovall DO Status: ADM IN Ordering Dr: Sheree Simmons Date: 01/07/25 Location: [facility] Sex: F C Admitted: 01/07/25 Test Reason [...] Abnormal ECG Confirmed by YANIV MASTERS MD ([id number]), editor trade journal ROJELIO TADEO ([id number]) on 01/08/2025 11:01:47 AM Referred By: Confirmed By: YANIV MASTERS MD 01/08/25 1101 Date _ Yaniv Masters MD CC: OCC MED PHYSICIAN-Ivett Collazo; Dr. Dianne Stovall DO; FERNANDO Uriostegui ~ Signed [facility] Work Phone: Eosinophil percentageOrdered By: Radha Heller on 01-08-2025 Eosinophils/100 WBC (Bld) 2.1 % 0-5 [facility] Erythrocyte distribution wid th ratioOrdered By: Radha Heller on 01-08-2025 Erythrocyte distribution width (RBC) [Ratio] 19.8 % High 11.6-14.6 [facility] Erythrocyte distribution wid th standard deviationOrdered By: Radha Heller on 01-08-2025 Erythrocyte distribution width (RBC) [Ratio] 64.7 fl High 35.1-43.9 [facility] Erythrocyte morphology asses smentOrdered By: Radha Heller on 01-08-2025 RBC morphology finding Nom (Bld) NORM C+C NORMAL NORM C&C [facility] Hematocrit Auto (Bld) [Volum e fraction]Ordered By: Radha Heller on 01-08-2025 Hematocrit (Bld) [Volume fraction] 28.4 % Low 37-47 [facility] Hemoglobin A1con 01-08-2025 HbA1c (Bld) [Mass fraction] 7.0 % High <=5.6 [facility] Comment on above: Result Comment: Norm al < 5.7 % Prediabetic 5.7 - 6.4 % Diabetic >or= 6.5 % Please note range changes. Performed By: #### L 501.9929 ####[facility] [address] [place], [address] Hemoglobin A1c percentageOrd ered By: Carla Barksdale on 01-08-2025 HbA1c (Bld) [Mass fraction] 7.0 % High <5.7 [facility] Comment on above: Normal < 5.7 % Predi abetic 5.7 - 6.4 % Diabetic >or= 6.5 % Please note range changes. Hemoglobin measurementOrdere d By: Radha Heller on 01-08-2025 Hemoglobin (Bld) [Mass/Vol] 9.0 g/dL Low 12.0-15.0 [facility] Immature granulocytes/100 WB C Auto (Bld)Ordered By: Radha Heller on 01-08-2025 Immature granulocytes/100 WBC (Bld) 0.300 % 0.0-0.9 [facility] Comment on above: IG% - Immature Granu locytes (promyelocytes, myelocytes and metamyelocytes) > 1% indicates that a LEFT SHIFT is Present. LDL calc ser/plasOrdered By: Radha Heller on 01-08-2025 Cholesterol in LDL [Mass/Vol] 26 mg/dL [facility] Comment on above: Mtcpkxaipt=702-766 m g/dL & Higher Phwt=166 mg/dL or greater Lipid Profileon 01-08-2025 CHOL:HDL 2.38 Normal [facility] Comment on above: Performed By: #### L 501.5200, L501.9520, L100.0100, L500.2500, L500.4100 ####[facility] [address] [place], [place], [address] Cholesterol [Mass/Vol] 68 mg/dL Normal <=200 [facility] Comment on above: Result Comment: Chol esterol level, Desirable <200 mg/dLBorderline high cholesterol 200-239 mg/dLHigh cholesterol >=240 mg/dLRecommendations of the NCEP Adult Treatment Panel for thefollowing risk-cutoff thresholds for the [place] [facility]. Performed By: #### L 501.5200, L501.9520, L100.0100, L500.2500, L500.4100 ####[facility] [address] [place], [place], [address] Cholesterol in HDL [Mass/Vol] 29 mg/dL Low [facility] Comment on above: Result Comment: [place] onal Cholesterol Education Program (NCEP) guidelines:<40 mg/dL: Low HDL-cholesterol (major risk factor for CHD)>= 60 mg/dL: High HDL-cholesterol (negative risk factor forCHD)HDL-cholesterol is affected by a number of factors, e.g.smoking, exercise, hormones, sex and age. Performed By: #### L 501.5200, L501.9520, L100.0100, L500.2500, L500.4100 ####[facility] [address] [place], [address] Cholesterol in LDL [Mass/Vol] 26 mg/dL Normal [facility] Comment on above: Result Comment: Bord xhbxyt=832-765 mg/dL Higher Neev=266 mg/dL or greater Performed By: #### L 501.5200, L501.9520, L100.0100, L500.2500, L500.4100 ####[facility] [address] [place], [address] Cholesterol in VLDL [Mass/Vol] 14 mg/dL Normal 5-40 [facility] Comment on above: Performed By: #### L 501.5200, L501.9520, L100.0100, L500.2500, L500.4100 ####[facility] [address] [place], [address] Triglyceride [Mass/Vol] 69 mg/dL Normal [facility] Comment on above: Result Comment: The drugs N-Acetylcysteine and Metamizole may falselydepress this assay.Normal range: <150 mg/dLBorderline High: 150-199 mg/dLHigh: 200-499 mg/dLVery High: >500 mg/dL Performed By: #### L 501.5200, L501.9520, L100.0100, L500.2500, L500.4100 ####[facility] [address] [place], [address] MCV (mean corpuscular volume ) determinationOrdered By: Radha Heller on 01-08-2025 MCV (RBC) [Entitic vol] 89.3 fL 81-99 [facility] Magnesiumon 01-08-2025 Magnesium [Mass/Vol] 2.4 mg/dL High 1.5-2.2 [facility] Comment on above: Performed By: #### L 501.5200, L501.9520, L100.0100, L500.2500, L500.4100 ####[facility] [address] [place], [place], [address] Magnesium measurement (mass/ volume)Ordered By: Radha Heller on 01-08-2025 Magnesium (Unsp spec) [Mass/Vol] 2.4 mg/dL High 1.5-2.2 [facility] Mean corpuscular hemoglobin (MCH) determinationOrdered By: Radha Heller on 01-08-2025 MCH (RBC) [Entitic mass] 28.3 pg 27.0-32.0 [facility] Mean corpuscular hemoglobin concentration (MCHC) determinationOrdered By: Radha Heller on 01-08-2025 MCHC (RBC) [Mass/Vol] 31.7 g/dL Low 32-36 [facility] Mean platelet volume determi nationOrdered By: Radha Heller on 01-08-2025 Platelet mean volume (Bld) [Entitic vol] 9.6 fL 6.2-12.0 [facility] Monocyte percentageOrdered B y: Radha Heller on 01-08-2025 Monocytes/100 WBC (Bld) 15.5 % High 0-10 [facility] Neutrophil percentageOrdered By: Radha Heller on 01-08-2025 Neutrophils/100 WBC (Bld) 47.3 % 47-70 [facility] Nucleated red blood cell per centageOrdered By: Radha Heller on 01-08-2025 Nucleated RBC/100 WBC (Bld) [Ratio] 0 % 0-5 [facility] Platelet countOrdered By: Fernando Heller on 01-08-2025 Platelets (Bld) [#/Vol] 155 10*3/uL 150-450 [facility] Platelet estimateOrdered By: Radha Heller on 01-08-2025 Platelets LM Ql (Bld) ADEQUATE ADEQ [facility] RBC Auto (Bld) [#/Vol]Ordere d By: Radha Heller on 01-08-2025 RBC (Bld) [#/Vol] 3.18 10*6/uL Low 4.2-5.4 [facility] Screening total cholesterol/ high density lipoprotein (HDL) cholesterol ratioOrdered By: Radha Heller on 01-08-2025 Cholesterol.total/Gin sterol in HDL [Mass ratio] 2.38 {ratio} [facility] Serum or plasma cholesterol in HDL measurement (mass/volume)Ordered By: Radha Heller on 01-08-2025 Cholesterol in HDL [Mass/Vol] 29 mg/dL Low >40 [facility] Comment on above: National Cholesterol Education Program (NCEP) guidelines:<40 mg/dL: Low HDL-cholesterol (major risk factor for CHD)>= 60 mg/dL: High HDL-cholesterol (negative risk factor for CHD)HDL-cholesterol is affected by a number of factors, e.g. smoking, exercise, hormones, sex and age. Serum or plasma cholesterol measurement (mass/volume)Ordered By: Radha Heller on 01-08-2025 Cholesterol [Mass/Vol] 68 mg/dL <201 [facility] Comment on above: Cholesterol level, D esirable <200 mg/dLBorderline high cholesterol 200-239 mg/dLHigh cholesterol >=240 mg/dLRecommendations of the NCEP Adult Treatment Panel for the following risk-cutoff thresholds for the [place] population. TSH DL <= 0.005 mIU/L QnOrde red By: Radha Heller on 01-08-2025 TSH Qn 4.850 uIU/mL High 0.300-4.200 [facility] Thyroid Stim Hormone (TSH)on 01-08-2025 TSH 4.850 uIU/mL High 0.300-4.200 [facility] Comment on above: Performed By: #### L 501.5200, L501.9520, L100.0100, L500.2500, L500.4100 ####[facility] [address] [place], [place], [address] Triglycerides measurementOrd ered By: Radha Heller on 01-08-2025 Triglyceride [Mass/Vol] 69 mg/dL <199 [facility] Comment on above: The drugs N-Acetylcy steine and Metamizole may falsely depress this assay. Normal range: <150 mg/dLBorderline High: 150-199 mg/dLHigh: 200-499 mg/dLVery High: >500 mg/dL White blood cell (WBC) count Ordered By: Radha Heller on 01-08-2025 WBC (Bld) [#/Vol] 6.3 10*3/uL 4.4-11.0 [facility] 12 Lead EKGon 01-07-2025 12 Lead EKG Normal [facility] Absolute lymphocyte countOrd ered By: ED PROVIDER on 01-07-2025 Lymphocytes Auto (Unsp spec) [#/Vol] 1.52 10*3/uL 0.83-4.51 [facility] Absolute neutrophil countOrd ered By: ED PROVIDER on 01-07-2025 Neutrophils (Bld) [#/Vol] 3.8 10*3/uL 2.0-7.7 [facility] Anion gap in Serum or Plasma Ordered By: ED PROVIDER on 01-07-2025 Anion gap [Moles/Vol] 15 mmol/L 11-16 [facility] Automated lymphocyte count a s percentage of total leukocytesOrdered By: ED PROVIDER on 01-07-2025 Lymphocytes/100 WBC Auto (Unsp spec) 24.2 % 19-41 [facility] BUN/creatinine ratioOrdered By: ED PROVIDER on 01-07-2025 Urea nitrogen/Creatinine [Mass ratio] 26.4 mg/mg High 10-20 [facility] Basic Metabolic Profile (BMP )on 01-07-2025 BUN/CRE 26.4 RATIO High 10- [facility] Comment on above: Performed By: #### L 500.2500, L100.0100 ####[facility] [address] [place], [address] ECRCL 24.26 ml/min Low 50-250 [facility] Comment on above: Performed By: #### L 500.2500, L100.0100 ####[facility] [address] [place], [address] GAP 15 Normal - [facility] Comment on above: Performed By: #### L 500.2500, L100.0100 ####[facility] [address] [place], [address] Potassium [Moles/Vol] 4.2 mmol/L Normal 3.3-5.1 [facility] Comment on above: Performed By: #### L 500.2500, L100.0100 ####[facility] [address] [place], [address] Basophil percentageOrdered B y: ED PROVIDER on 01-07-2025 Basophils/100 WBC (Bld) 1.0 % 0-1 [facility] Bedside Glucoseon 01-07-2025 FINGERSTICK GLU 166 mg/dL High 74-106 [facility] Comment on above: Result Comment: JOHNSON GEMENT OF PATIENT CARE PER NURSING PROTOCOL Performed By: #### L 501.080 ####[facility] [address] [place], [address] FINGERSTICK GLU 104 mg/dL Normal 74-106 [facility] Comment on above: Result Comment: JOHNSON GEMENT OF PATIENT CARE PER NURSING PROTOCOL Performed By: #### L 501.080 ####[facility] [address] [place], [address] CBC W/Diff, AutomatedOrdered By: ED PROVIDER on 01-07-2025 Anisocytosis Ql (Bld) 1+ Normal [facility] Comment on above: Performed By: #### L 500.2500, L100.0100 ####[facility] [address] [place], [address] Carbon dioxide, total [Moles /volume] in Central venous bloodOrdered By: ED PROVIDER on 01-07-2025 CO2 [Moles/Vol] 23.9 mmol/L Normal 21.0-32.0 [facility] Comment on above: Performed By: #### L 500.2500, L100.0100 ####[facility] [address] [place], [address] Chest PA and Lateralon 01-07 Chest PA and Lateral Normal [facility] Chloride assayOrdered By: ED PROVIDER on 01-07-2025 Chloride [Moles/Vol] 91 mmol/L Low 98-108 [facility] Comment on above: Performed By: #### L 500.2500, L100.0100 ####[facility] [address] [place], [place], [address] Echo Completeon 01-07-2025 Echo Complete Normal [facility] Emergency Department Summary on 01-07-2025 Emergency Department Summary Normal [facility] Eosinophil percentageOrdered By: ED PROVIDER on 01-07-2025 Eosinophils/100 WBC (Bld) 1.8 % 0-5 [facility] Erythrocyte distribution wid th ratioOrdered By: ED PROVIDER on 01-07-2025 Erythrocyte distribution width (RBC) [Ratio] 19.9 % High 11.6-14.6 [facility] Erythrocyte distribution wid th standard deviationOrdered By: ED PROVIDER on 01-07-2025 Erythrocyte distribution width (RBC) [Ratio] 65.6 fl High 35.1-43.9 [facility] Glomerular filtration rate ( GFR) estimation/1.73 sq m using serum, plasma, or whole bOrdered By: ED PROVIDER on 01-07-2025 GFR/1.73 sq M.predicted among non-blacks MDRD (S/P/Bld) [Vol rate/Area] 29 mL/min/{1.73_m2} Low >60 [facility] Comment on above: mL/min/1.73m2 CKD-EP I Creatinine Equation (2020) Result Comment: mL/m in/1.73m2 CKD-EPI Creatinine Equation (2020) Performed By: #### L 500.2500, L100.0100 ####[facility] [address] [place], [address] H AND P Exam - Hospitaliston 01-07-2025 H&P Exam - Hospitalist Normal [facility] Hematocrit Auto (Bld) [Volum e fraction]Ordered By: ED PROVIDER on 01-07-2025 Hematocrit (Bld) [Volume fraction] 29.6 % Low 37-47 [facility] Hemoglobin measurementOrdere d By: ED PROVIDER on 01-07-2025 Hemoglobin (Bld) [Mass/Vol] 9.4 g/dL Low 12.0-15.0 [facility] Immature granulocytes/100 WB C Auto (Bld)Ordered By: ED PROVIDER on 01-07-2025 Immature granulocytes/100 WBC (Bld) 0.300 % 0.0-0.9 [facility] Comment on above: IG% - Immature Granu locytes (promyelocytes, myelocytes and metamyelocytes) > 1% indicates that a LEFT SHIFT is Present. L499.0042on 01-07-2025 Trop T High Sen 68 ng/L Invalid Interpretation Code <=14 [facility] Comment on above: Result Comment: Crit ical Result(s) Called at: 01/07/2025-15:45 by: Francisco J Carrera.??Results read back by same. Performed By: #### L 499.0042 ####[facility] [address] [facility] [place], [address] L501.4021on 01-07-2025 Trop T High Sen 71 ng/L Invalid Interpretation Code <=14 [facility] Comment on above: Result Comment: Crit ical Result(s) Called at: 01/07/2025-13:48 by: Andreea.??Results read back by same. Performed By: #### L 501.4021, L503.7995 ####[facility] [address] [facility] [place], [address] L503.7505on 01-07-2025 Natriuretic peptide B (Bld) [Mass/Vol] 19363 pg/mL High <=1800 [facility] Comment on above: Result Comment: Hear t Failure Unlikely: < 300 pg/mLHeart Failure Likely< 50 Years: > 450 pg/mL50-75 Years: > 900 pg/mL>75 Years: > 1800 pg/mL Performed By: #### L 501.4021, L503.7505 ####[facility] [address] [facility]. [place], [place], [address] MCV (mean corpuscular volume ) determinationOrdered By: ED PROVIDER on 01-07-2025 MCV (RBC) [Entitic vol] 90.0 fL 81-99 [facility] Mean corpuscular hemoglobin (MCH) determinationOrdered By: ED PROVIDER on 01-07-2025 MCH (RBC) [Entitic mass] 28.6 pg 27.0-32.0 [facility] Mean corpuscular hemoglobin concentration (MCHC) determinationOrdered By: ED PROVIDER on 01-07-2025 MCHC (RBC) [Mass/Vol] 31.8 g/dL Low 32-36 [facility] Mean platelet volume determi nationOrdered By: ED PROVIDER on 01-07-2025 Platelet mean volume (Bld) [Entitic vol] 9.6 fL 6.2-12.0 [facility] Monocyte percentageOrdered B y: ED PROVIDER on 01-07-2025 Monocytes/100 WBC (Bld) 12.9 % High 0-10 [facility] Natriuretic peptide.B prohor daria N-Terminal [Mass/volume] in Serum or PlasmaOrdered By: Sheree Simmons on 01-07-2025 Natriuretic peptide.B prohormone N-Terminal [Mass/Vol] 53439 pg/mL High <1800 [facility] Comment on above: Heart Failure Unlike ly: < 300 pg/mLHeart Failure Likely< 50 Years: > 450 pg/mL50-75 Years: > 900 pg/mL>75 Years: > 1800 pg/mL Neutrophil percentageOrdered By: ED PROVIDER on 01-07-2025 Neutrophils/100 WBC (Bld) 59.8 % 47-70 [facility] No Panel InformationOrdered By: ED PROVIDER on 01-07-2025 1+ [facility] Nucleated red blood cell per centageOrdered By: ED PROVIDER on 01-07-2025 Nucleated RBC/100 WBC (Bld) [Ratio] 0 % 0-5 [facility] Platelet countOrdered By: ED PROVIDER on 01-07-2025 Platelets (Bld) [#/Vol] 165 10*3/uL 150-450 [facility] Potassium measurement (mass/ volume)Ordered By: ED PROVIDER on 01-07-2025 Potassium (Unsp spec) [Mass/Vol] 4.2 mmol/L 3.3-5.1 [facility] RBC Auto (Bld) [#/Vol]Ordere d By: ED PROVIDER on 01-07-2025 RBC (Bld) [#/Vol] 3.29 10*6/uL Low 4.2-5.4 [facility] STROKE Brain/Head without Co nton 01-07-2025 STROKE Brain/Head without Cont Normal [facility] STROKE CTA Head AND Neck W/C onon 01-07-2025 STROKE CTA Head AND Neck W/Con Normal [facility] Serum creatinine measurement (mass/volume)Ordered By: ED PROVIDER on 01-07-2025 Creatinine [Mass/Vol] 1.77 mg/dL High 0.70-1.20 [facility] Comment on above: Performed By: #### L 500.2500, L100.0100 ####[facility] [address] [place], [address] Serum glucose measurement (m ass/volume)Ordered By: ED PROVIDER on 01-07-2025 Glucose [Mass/Vol] 194 mg/dL High 70-99 [facility] Comment on above: Performed By: #### L 500.2500, L100.0100 ####[facility] [address] [place], [address] Serum or plasma calcium bijan urement (mass/volume)Ordered By: ED PROVIDER on 01-07-2025 Calcium [Mass/Vol] 8.8 mg/dL Normal 7.6-11.0 [facility] Comment on above: Performed By: #### L 500.2500, L100.0100 ####[facility] [address] [place], [address] Serum or plasma urea nitroge n measurement (mass/volume)Ordered By: ED PROVIDER on 01-07-2025 Urea nitrogen [Mass/Vol] 47 mg/dL High 4-19 [facility] Comment on above: Performed By: #### L 500.2500, L100.0100 ####[facility] [address] [place], [address] Sodium levelOrdered By: ED Yue AUSTIN on 01-07-2025 Sodium [Moles/Vol] 129 mmol/L Low 133-145 [facility] Comment on above: Performed By: #### L 500.2500, L100.0100 ####[facility] [address] [place], [address] Troponin T.cardiac [Mass/vol ume] in Serum or Plasma by High sensitivity methodOrdered By: Sheree Simmons on 01-07-2025 Troponin T.cardiac High sensitivity method [Mass/Vol] 68 ng/L Critically high <14 [facility] Comment on above: Critical Result(s) C alled at: 01/07/2025-15:45 by: Tai Garcia to Jen Carrera. Results read back by same. Troponin T.cardiac High sensitivity method [Mass/Vol] 71 ng/L Critically high <14 [facility] Comment on above: Critical Result(s) C alled at: 01/07/2025-13:48 by: Danika Blanchard. Results read back by same. White blood cell (WBC) count Ordered By: ED PROVIDER on 01-07-2025 WBC (Bld) [#/Vol] 6.3 10*3/uL 4.4-11.0 [facility] CNOVon 01-01-2025 CNOV Office Visit (JOHNNY ) BERTA SANCHES ([id number]) 1945 [place] Date Time Provider Department 01/01/25 11:00 AM CARLA BURDICK During your visit today, we recorded the following information about you: Pulse Respiration Blood pressure Weight 84/minute 18/minute 156/60 67.4 kg Height 1.575 m Carla Burdick MD 01/01/2025 12:27 PM Signed [facility] SE[facility] REGIONAL CARDIOLOGY Cardiology ([facility]) [address] [facility] [id number] OUTPATIENT VISIT DATE 01/01/2025 PRIMARY CARE PHYSICIAN: Gerard Le [address] [place] [address] HISTORY OF PRESENT ILLNESS: Ms. Sanches is a 79 year old woman with a history of remote aortic valve replacement with homograft in 1996 and possible repair of the ascending aorta, chronic diastolic congestive heart failure, hypertension, dyslipidemia, atrial fibrillation with history of pulmonary vein isolation procedures, pacemaker placement and watchman procedure who presents for follow-up. Patient was admitted to [facility]. She was discharged after 2 days. 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 Lua PACEMAKER 10/2019 PART. HYSTERECTOMY W/WO RMVL OVARIES/TUBES 1973 h/o cervical cancer ovaries remain PAST SURGICAL HISTORY OF 1996 Aortic valve repair, Dr. Apodaca PAST SURGICAL HISTORY OF 2001 [address] Beltrán, [facility] PAST SURGICAL HISTORY OF 2015 clipping [...] and 1 (more content not included)... Normal [facility] Connie 12-26-2024 [facility] Telephone ([facility]) BERTA SANCHES ([id number]) 1945 [place] Date Time Provider Department 12/26/24 ALBIN GU [facility] During your visit today, we recorded the following information about you: Albin Gu APRN.CNP 12/26/2024 9:45 AM Signed Patient called to [...] Albin Gu APRN.CNP Allergies As of Date: 12/26/2024 Noted Allergy [...] 02/26/2014 03/21/2022 Intracranial aneurysm [I67.1] 08/30/2015 10/05/2022 emt intermediate current use of antiarrhythmic medical*10/20/2016 09/12/2021 Prosthetic [...] anemia [D50.9] more content not included)... [facility] ) BERTA SANCHES ([id number]) 1945 F [place] Date Time Provider Department 12/20/24 8:45 AM LARS SILVA During your visit today, we recorded the following information about you: Pulse Blood pressure Weight 77/minute 154/75 67.4 kg Lars Silva, DO 12/20/2024 5:56 PM Signed [facility] [place] DEPARTMENT OF VASCULAR SURGERY OUTPATIENT VISIT DATE December 20, 2024 OUTPATIENT VISIT TYPE ESTABLISHED SERVICE DATE: 12/20/2024 SERVICE TIME: 8:53 AM PRIMARY CARE PHYSICIAN: Deysi Collazo APRN.SCRAP CHARGER HISTORY OF PRESENT ILLNESS: Ms. Sanches is a 79 year old female who presents today for a vascular surgery follow-up visit follow up on mesenteric duplex. She recently increased her lasix at the CHF clinic. She had a stent placed in [place] in September. She was recently admitted to [place] for anemia. She has noted increased swelling. 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 Lua PACEMAKER 10/2019 PART. HYSTERECTOMY W/WO RMVL OVARIES/TUBES 1974 h/o cervical cancer ovaries remain PAST SURGICAL HISTORY OF 1996 Aortic valve repair, Dr. Apodaca PAST SURGICAL HISTORY OF 2001 [address] Beltrán, [facility] PAST SURGICAL HISTORY OF 2015 clipping [...] blood sugar (more content not included)... Normal [facility] MESENTERIC ARTERY CMPLT V LABon 12-20-2024 MESENTERIC ARTERY CMPLT VAS LAB Non-Invasive Vascular Laboratory [place] [facility] Renal or Mesenteric Duplex [...] Unable to visualize. Technologist: Chantell Ferrari RVT, [facility] Ordering physician: LARS SILVA Interpreting physician: Terrance Oseguera MD, BIJAN Final CC [employer] [facility] Image : [id number] See Link below for Image Normal [facility] CNOVon 12-19-2024 [facility] BERTA SANCHES ([id number]) 1945 [address] [facility] Date Time Provider Department 12/19/24 11:00 AM [facility] GU [facility] During your visit today, we recorded the following information about you: Pulse Blood pressure Weight 79/minute 157/54 65.3 kg Albin Gu APRN.SCRAP CHARGER 12/19/2024 11:41 AM Addendum 40 mg intravenous [...] or concern, you can call me at [phone]. Albin Gu APRN.CNP 12/19/2024 11:45 AM Signed [facility] [place] [facility] Heart Failure [facility] OUTPATIENT VISIT DATE December [...] and was worried about traveling home to [place] in a few days. Discussed with her taking lasix as it was prescribed. As her spironolactone was stopped, did advise patient restart this at 25 mg once a day for four days only. She was instructed to call office in a week to review symptoms. On 10/15, patient presented back to [facility] for gastrointestinal bleed. She had a colonoscopy [...] and entresto. The patient wished to leave [place] so she could return to [place]. Cardiology and Pulmonary agreed with discharge. Patient [...] lbs Hospital disch (more content not included)... [facility] 12-13-2024 [facility] Telephone ([facility]) BERTA SANCHES ([id number]) 1945 [facility] Date Time Provider Department 12/13/24 DEYSI COLLAZO [facility] During your visit today, we recorded the following information about you: Alex Gonzalez 12/13/2024 9:36 AM Signed Transitional Care Management (TCM) [facility] Monitoring Program Provider Action / FYI: N/A SUMMARY: Outreach type: INITIAL OUTREACH Discharge Network Status: In-Network Discharge Source of Patient: [facility] TCM Discharge Report Patient discharged from [facility] on December 12. Admitted for Acute on chronic diastolic CHF (congestive heart failure) ([facility]). Contact made with patient: No - next [...] 02/26/2014 03/21/2022 Intracranial aneurysm [I67.1] 08/30/2015 10/05/2022 emt intermediate current use of antiarrhythmic medical*10/20/2016 09/12/2021 Prosthetic [...] [C64.9] 04 (more content not included)... Normal [facility] Basic metabolic 2000 panelon 12-12-2024 Anion gap [Moles/Vol] 12 mmol/L Normal 8-15 [facility] Comment on above: Order Comment: Speci men Type: BLOOD SPECIMEN Ordering Facility: [facility] Address: [address] [place] [address] Performed By: #### 1 91239, 67175-2 #### [facility] CLIA [id number] [address] [place] [address] [place] Calcium [Mass/Vol] 8.8 mg/dL Normal 8.5-10.2 [facility] Comment on above: Order Comment: Speci men Type: BLOOD SPECIMEN Ordering Facility: [facility] Address: [address] [place] [address] Performed By: #### 1 91239, 95971-0 #### [facility] CLIA [id number] [address] [place] [address] [place] Chloride [Moles/Vol] 96 mmol/L Low 98-107 [facility] Comment on above: Order Comment: Speci men Type: BLOOD SPECIMEN Ordering Facility: [facility] Address: [address] [place] [address] Performed By: #### 1 91239, 17816-0 #### [facility] CLIA [id number] [address] [place] [address] [place] CO2 [Moles/Vol] 26 mmol/L Normal 22-30 [facility] Comment on above: Order Comment: Speci men Type: BLOOD SPECIMEN Ordering Facility: [facility] Address: [address] [place] [address] Performed By: #### 1 91239, 51576-6 #### [facility] CLIA [id number] [address] [place] [address] [place] Creatinine [Mass/Vol] 1.69 mg/dL High 0.58-0.96 [facility] Comment on above: Order Comment: Speci men Type: BLOOD SPECIMEN Ordering Facility: [facility] Address: [address] [place] [address] Performed By: #### 1 91239, 54979-6 #### [facility] CLIA [id number] [address] Creatinine and Glomerular filtration rate.predicted panel (S/P/Bld) 31 mL/min/1.73m??? Low >=60 [facility] Comment on above: Order Comment: Speci men Type: BLOOD SPECIMEN Ordering Facility: [facility] Address: [address] [place] [address] Result Comment: Mira mated Glomerular Filtration Rate [...] actual GFR. Performed By: #### 1 9123-9, 51219-1 #### [facility] CLIA [id number] [address] [place] [address] [place] Glucose [Mass/Vol] 170 mg/dL High 74-99 [facility] Comment on above: Order Comment: Annie ricci Type: BLOOD SPECIMEN Ordering Facility: [facility] Address: [address] [place] [address] Result Comment: The [place] Diabetes Association (ADA) provides guidance for cutoff [...] Standards of Medical Care in Diabetes 2016, [place] [employer]. Diabetes Care. 2016.39(Suppl 1). Performed By: #### 1 9123-9, 56036-4 #### [facility] CLIA [id number] [address] [place] [id number] [place] Potassium [Moles/Vol] 4.1 mmol/L Normal 3.7-5.1 [facility] Comment on above: Order Comment: Annie ricci Type: BLOOD SPECIMEN Ordering Facility: [facility] Address: [address] [place] [id number] Performed By: #### 1 9123-9, 63652-6 #### [facility] CLIA [id number] [address] [place] Sodium [Moles/Vol] 134 mmol/L Low 136-144 [facility] Comment on above: Order Comment: Speci men Type: BLOOD SPECIMEN Ordering Facility: [facility] Address: [address] [place] [address] Performed By: #### 1 9123-9, 60564-4 #### [facility] CLIA [id number] [address] [place] [address] [place] Urea nitrogen [Mass/Vol] 47 mg/dL High 7-21 [facility] Comment on above: Order Comment: Speci men Type: BLOOD SPECIMEN Ordering Facility: [facility] Address: [address] [place] [address] Performed By: #### 1 9123-9, 00297-0 #### [facility] CLIA [id number] [address] [place] CBC panel Auto (Bld)on 12-12 Erythrocyte distribution width (RBC) [Ratio] 15.9 % High 11.5-15.0 [facility] Comment on above: Order Comment: Speci men Type: BLOOD SPECIMEN Ordering Facility: [facility] Address: [address] [place] [address] Performed By: #### 5 8410-2 #### [facility] CLIA [id number] [address] Hematocrit (Bld) [Volume fraction] 25.0 % Low 36.0-46.0 [facility] Comment on above: Order Comment: Speci men Type: BLOOD SPECIMEN Ordering Facility: [facility] Address: [address] [place] [address] Performed By: #### 5 8410-2 #### [facility] CLIA [id number] [address] [place] Hemoglobin (Bld) [Mass/Vol] 8.0 g/dL Low 11.5-15.5 [facility] Comment on above: Order Comment: Speci men Type: BLOOD SPECIMEN Ordering Facility: [facility] Address: [address] [place] [address] Performed By: #### 5 8410-2 #### [facility] CLIA [id number] [address] MCH (RBC) [Entitic mass] 28.6 pg Normal 26.0-34.0 [facility] Comment on above: Order Comment: Speci men Type: BLOOD SPECIMEN Ordering Facility: [facility] Address: [address] [place] [address] Performed By: #### 5 8410-2 #### [facility] CLIA [id number] [address] MCHC (RBC) [Mass/Vol] 32.0 g/dL Normal 30.5-36.0 [facility] Comment on above: Order Comment: Speci men Type: BLOOD SPECIMEN Ordering Facility: [facility] Address: [address] [place] [address] Performed By: #### 5 8410-2 #### [facility] CLIA [id number] [address] MCV (RBC) [Entitic vol] 89.3 fL Normal 80.0-100.0 [facility] Comment on above: Order Comment: Speci men Type: BLOOD SPECIMEN Ordering Facility: [facility] Address: [address] [place] [address] Performed By: #### 5 8410-2 #### [facility] CLIA [id number] [address] Nucleated RBC (Bld) [#/Vol] 10*3/uL Normal <0.01 [facility] Comment on above: Order Comment: Speci men Type: BLOOD SPECIMEN Ordering Facility: [facility] Address: [address] [place] [address] Performed By: #### 5 8410-2 #### [facility] CLIA [id number] [address] Platelet mean volume (Bld) [Entitic vol] 9.9 fL Normal 9.0-12.7 [facility] Comment on above: Order Comment: Speci men Type: BLOOD SPECIMEN Ordering Facility: [facility] Address: [address] [place] [address] Performed By: #### 5 8410-2 #### [facility] CLIA [id number] [address] [place] Platelets (Bld) [#/Vol] 148 10*3/uL Low 150-400 [facility] Comment on above: Order Comment: Speci men Type: BLOOD SPECIMEN Ordering Facility: [facility] Address: [address] [place] [address] Performed By: #### 5 8410-2 #### [facility] CLIA [id number] [address] [place] [address] [place] RBC (Bld) [#/Vol] 2.80 10*6/uL Low 3.90-5.20 [facility] Comment on above: Order Comment: Speci men Type: BLOOD SPECIMEN Ordering Facility: [facility] Address: [address] [place] [address] Performed By: #### 5 8410-2 #### [facility] CLIA [id number] [address] [place] WBC (Bld) [#/Vol] 9.29 10*3/uL Normal 3.70-11.00 [facility] Comment on above: Order Comment: Speci men Type: BLOOD SPECIMEN Ordering Facility: [facility] Address: [address] [place] [address] Performed By: #### 5 8410-2 #### [facility] CLIA [id number] [address] [place] CNDSon 12-12-2024 CNDS HNO ID: [id number] Author: JUAN DIEGO KNOWLES MD Service: Hospital [...] Knowles MD Primary Care Provider: Deysi Collazo APRN.CNP My Medical Team Members: Treatment Team: [...] of torsemide and follow up with a sales property manager and our CHF clinic to guide your [...] Surgery placed. 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 Patient [...] results. FOLLOW-UP APPOINTMENTS ALREADY SCHEDULED WITH A [facility] PROVIDER: Future Appointments Date Time Provider Department Center 12/21/2024 9:00 AM Albin Gu, ATHLETIC AGENT.[facility] 01/01/2025 11:00 AM Carla Burdick MD [facility] [place] 01/10/2025 1:00 PM Deysi Collazo APRN.[facility] 02/26/2025 2:20 PM Carla Burdick MD [...] how you (more content not included)... Normal [facility] CONSULT PROGon 12-12-2024 CONSULT PROG HNO ID: [id number] Author: BETSY HALL MD Service: Nephrology Author [...] urine creatinine (more content not included)... Normal [facility] Magn[facility] [Mass/Vol] 2.0 mg/dL Normal 1.7-2.3 [facility] Comment on above: Order Comment: Annie ricci Type: BLOOD SPECIMEN Ordering Facility: [facility] Address: [address] [place] [address] Performed By: #### 1 9123-9, 14539-0 #### [facility] CLIA [id number] [address] [place] [address] [place] ALBUMIN/CREATININE RATIO, UR INEon 12-11-2024 Albumin DL <= 20 mg/L (U) [Mass/Vol] 23.5 mg/L Normal [facility] Comment on above: Order Comment: Annie ricci Type: BLOOD SPECIMEN Ordering Facility: [facility] Address: [address] [place] [address] Performed By: #### 2 132-9, 2284-8 #### [facility] CLIA [id number] [address] Albumin/Creatinine (U) [Mass ratio] 76 mg/g High <30 [facility] Comment on above: Order Comment: Anine ricci Type: BLOOD SPECIMEN Ordering Facility: [facility] Address: [address] [place], [place] [address] Result Comment: Adul t Male and Female Nephrotic Criteria: <30 mg/g is considered normal to mildly increased 30-300 mg/g is considered moderately increased >300 mg/g is considered severely increased KDIGO. (2013). KDIGO 2012 Clinical Practice Guideline for the Evaluation and Management of Chronic Kidney Disease. Official Journal of the International Society of Nephrology, 3(1), 1-150. Performed By: #### 2 132-9, 2284-8 #### [facility] CLIA [id number] [address] OF [facility] ALLIED HEALTHon 12-11-2024 ALLIED HEALTH HNO ID: [id number] Author: NUNU CHATMAN RDMS Service: ? Author [...] PATIENT PRESENTS WITH AN IMPLANTABLE OR ATTACHED PUBLIC RELATIONS STUDIES DIRECTOR: N/A RADIOLOGY DEPARTMENT: Ultrasound PERIPHERAL IV DATA: Not applicable SIGNED BY: Nunu Chatman RDMS December 11, 2024 9:14 AM Normal [facility] Basic metabolic 2000 panelon 12-11-2024 Anion gap [Moles/Vol] 13 mmol/L Normal 8-15 [facility] Comment on above: Order Comment: Annie ricci Type: BLOOD SPECIMEN Ordering Facility: [facility] Address: [address] [place] [address] Performed By: #### 2 276-4, 53050-4, 39741-8, 78062-1 #### [facility] CLIA [id number] [address] [place] [address] [place] Calcium [Mass/Vol] 8.9 mg/dL Normal 8.5-10.2 [facility] Comment on above: Order Comment: Speci men Type: BLOOD SPECIMEN Ordering Facility: [facility] Address: [address] [place] [address] Performed By: #### 2 276-4, 73498-5, 90422-8, 29483-0 #### [facility] CLIA [id number] [address] [place] [address] [place] Chloride [Moles/Vol] 93 mmol/L Low 98-107 [facility] Comment on above: Order Comment: Speci men Type: BLOOD SPECIMEN Ordering Facility: [facility] Address: [address] [place] [address] Performed By: #### 2 276-4, 22054-6, 44481-5, 25663-8 #### [facility] CLIA [id number] [address] [place] [address] [place] CO2 [Moles/Vol] 24 mmol/L Normal 22-30 [facility] Comment on above: Order Comment: Speci men Type: BLOOD SPECIMEN Ordering Facility: [facility] Address: [facility] [place] [address] Performed By: #### 2 276-4, 36413-9, 57043-3, 62446-4 #### [facility] CLIA [id number] [address] [place] [address] [place] Creatinine [Mass/Vol] 1.70 mg/dL High 0.58-0.96 [facility] Comment on above: Order Comment: Speci men Type: BLOOD SPECIMEN Ordering Facility: [facility] Address: [facility] [place] [address] Performed By: #### 2 276-4, 48528-9, 20640-3, 26482-3 #### [facility] CLIA [id number] [address] [place] [address] [place] Creatinine and Glomerular filtration rate.predicted panel (S/P/Bld) 30 mL/min/1.73m??? Low >=60 [facility] Comment on above: Order Comment: Annie ricci Type: BLOOD SPECIMEN Ordering Facility: [facility] Address: [address] [place] [address] Result Comment: Mira mated Glomerular Filtration Rate [...] actual GFR. Performed By: #### 2 276-4, 75592-6, 83736-5, 81649-8 #### [facility] CLIA [id number] [address] [place] [address] [place] Glucose [Mass/Vol] 144 mg/dL High 74-99 [facility] Comment on above: Order Comment: Annie ricci Type: BLOOD SPECIMEN Ordering Facility: [facility] Address: [address] [place] [address] Result Comment: The [place] Diabetes Association (ADA) provides guidance for cutoff [...] Standards of Medical Care in Diabetes 2016, [place] [employer]. Diabetes Care. 2016.39(Suppl 1). Performed By: #### 2 276-4, 38811-1, 05765-0, 13003-9 #### [facility] CLIA [id number] [address] [place] [id number] [place] Potassium [Moles/Vol] 3.6 mmol/L Low 3.7-5.1 [facility] Comment on above: Order Comment: Speci men Type: BLOOD SPECIMEN Ordering Facility: [facility] Address: [address] [place] [address] Performed By: #### 2 276-4, 83540-0, 96215-3, 06639-8 #### [facility] CLIA [id number] [address] [place] [address] [place] Sodium [Moles/Vol] 130 mmol/L Low 136-144 [facility] Comment on above: Order Comment: Speci men Type: BLOOD SPECIMEN Ordering Facility: [facility] Address: [address] [place] [address] Performed By: #### 2 276-4, 03307-8, 24897-4, 60578-7 #### [facility] CLIA [id number] [address] [place] Urea nitrogen [Mass/Vol] 54 mg/dL High 7-21 [facility] Comment on above: Order Comment: Speci men Type: BLOOD SPECIMEN Ordering Facility: [facility] Address: [address] [place] [address] Performed By: #### 2 276-4, 40245-7, 27608-1, 46584-4 #### [facility] CLIA [id number] [address] STATES OF [facility] CBC panel Auto (Bld)on 12-11 Erythrocyte distribution width (RBC) [Ratio] 16.1 % High 11.5-15.0 [facility] Comment on above: Order Comment: Speci men Type: BLOOD SPECIMEN Ordering Facility: [facility] Address: [address] [place] [address] Performed By: #### 2 132-9, 8 #### [facility] CLIA [id number] [address] Hematocrit (Bld) [Volume fraction] 23.8 % Low 36.0-46.0 [facility] Comment on above: Order Comment: Speci men Type: BLOOD SPECIMEN Ordering Facility: [facility] Address: [address] [place] [address] Performed By: #### 2 132-9, 8 #### [facility] CLIA [id number] [address] [place] Hemoglobin (Bld) [Mass/Vol] 7.6 g/dL Low 11.5-15.5 [facility] Comment on above: Order Comment: Speci men Type: BLOOD SPECIMEN Ordering Facility: [facility] Address: [address] [place] [address] Performed By: #### 2 132-9, 8 #### [facility] CLIA [id number] [address] OF [facility] MCH (RBC) [Entitic mass] 28.4 pg Normal 26.0-34.0 [facility] Comment on above: Order Comment: Speci men Type: BLOOD SPECIMEN Ordering Facility: [facility] Address: [address] [place] [address] Performed By: #### 2 132-9, 8 #### [facility] CLIA [id number] [address] MCHC (RBC) [Mass/Vol] 31.9 g/dL Normal 30.5-36.0 [facility] Comment on above: Order Comment: Speci men Type: BLOOD SPECIMEN Ordering Facility: [facility] Address: [address] [place] [address] Performed By: #### 2 132-9, 8 #### [facility] CLIA [id number] [address] OF [place] MCV (RBC) [Entitic vol] 88.8 fL Normal 80.0-100.0 [facility] Comment on above: Order Comment: Speci men Type: BLOOD SPECIMEN Ordering Facility: [facility] Address: [address] [place] [address] Performed By: #### 2 132-9, 8 #### [facility] CLIA [id number] [address] OF [facility] Nucleated RBC (Bld) [#/Vol] 10*3/uL Normal <0.01 [facility] Comment on above: Order Comment: Speci men Type: BLOOD SPECIMEN Ordering Facility: [facility] Address: [address] [place] [address] Performed By: #### 2 132-9, 2283-8 #### [facility] CLIA [id number] [address] [place] [address] [place] Platelet mean volume (Bld) [Entitic vol] 9.8 fL Normal 9.0-12.7 [facility] Comment on above: Order Comment: Speci men Type: BLOOD SPECIMEN Ordering Facility: [facility] Address: [address] [place] [address] Performed By: #### 2 132-9, 2283-8 #### [facility] CLIA [id number] [address] OF [place] Platelets (Bld) [#/Vol] 160 10*3/uL Normal 150-400 [facility] Comment on above: Order Comment: Speci men Type: BLOOD SPECIMEN Ordering Facility: [facility] Address: [address] [place] [address] Performed By: #### 2 132-9, 2283-8 #### [facility] CLIA [id number] [address] [place] [address] [place] RBC (Bld) [#/Vol] 2.68 10*6/uL Low 3.90-5.20 [facility] Comment on above: Order Comment: Speci men Type: BLOOD SPECIMEN Ordering Facility: [facility] Address: [address] [place] [address] Performed By: #### 2 132-9, 2283-8 #### [facility] CLIA [id number] [address] [place] [address] [place] WBC (Bld) [#/Vol] 7.37 10*3/uL Normal 3.70-11.00 [facility] Comment on above: Order Comment: Speci men Type: BLOOD SPECIMEN Ordering Facility: [facility] Address: [address] [place] [address] Performed By: #### 2 132-9, 2283-8 #### [facility] CLIA [id number] [address] OF [place] Connie 12-11-2024 CNPN Telephone (4CQ) BERTA SANCHES ([id number]) 1945 [address] [facility] Date Time Provider Department 12/11/24 DEYSI COLLAZO 4CQ During your visit today, we recorded the following information about you: Marilyn Cesar 12/11/2024 11:06 AM Signed Patient called to cancel hospital follow up due to re admission yesterday 12/10/2024 Sigifredo Rivera LPN 12/11/2024 11:15 AM Signed Pt re admitted to [facility]. GOPI Hill Christy, APRN.CNP 12/11/2024 1:06 PM Signed Noted. Deysi Collazo APRN.SCRAP CHARGER Allergies As of Date: 12/11/2024 Noted Allergy [...] 02/26/2014 03/21/2022 Intracranial aneurysm [I67.1] 08/30/2015 10/05/2022 [facility] current use of antiarrhythmic medical*10/20/2016 09/12/2021 Prosthetic [...] [J90] 03/06 (more content not included)... Normal [facility] CONSULTon 12-11-2024 CONSULT HNO ID: [id number] Author: HEMANT JIMENEZ MD Service: Gastroenterology Author Type: Physician Type: Consults Filed: 12/11/2024 15:46 Note Text: GASTROENTEROLOGY CONSULT NOTE PATIENT NAME: Berta Sanches SERVICE DATE: December 11, 2024 SERVICE TIME: 11:59 AM PRIMARY CARE PHYSICIAN: Deysi Collazo APRN.SCRAP CHARGER ATTENDING PHYSICIAN:Juan Diego Knowles MD REASON FOR ADMISSION: CHF REASON FOR CONSULTATION:BUSHRA HPI: This is a 79 year old female with a past medical history significant for cervical cancer, brain aneurysm, s/p coiling, bilateral carotid stenosis, afib s/p watchman 2022, D-CHF, SSS S/P pacemaker placement, Hx AVR, CKD3, HTN, DM, GERD, diverticulitis, hx of 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 Lua PACEMAKER 10/2019 PART. HYSTERECTOMY W/WO RMVL OVARIES/TUBES 1973 h/o cervical cancer ovaries remain PAST SURGICAL HISTORY OF 1996 Aortic valve repair, Dr. Apodaca PAST SURGICAL HISTORY OF 2001 [address] Beltrán, [facility] PAST SURGICAL HISTORY OF 2016 clipping [...] , 12/09/2024 t (more content not included)... [facility] CONSULT PROGon 12-11-2024 CONSULT PROG HNO ID: [id number] Author: BETSY HALL MD Service: Nephrology Author [...] kidney ultrasound and renal artery duplex Normal [facility] Creat ?Tm Ur-mCncon 12-12-19 25 Creatinine (U) [Mass/Vol] 31.1 mg/dL Normal 20.0-300.0 [facility] Comment on above: Order Comment: Speci men Type: BLOOD SPECIMEN Ordering Facility: [facility] Address: [address], [place] [address] Performed By: #### 2 132-9, 2283-8 #### [facility] CLIA [id number] [address] [place] [address] [place] Ferritin SerPl-mCncon 2024 Ferritin [Mass/Vol] 36.2 ng/mL Normal 14.7-205.1 [facility] Comment on above: Order Comment: Speci men Type: BLOOD SPECIMEN Ordering Facility: [facility] Address: [address] [place] [address] Performed By: #### 2 276-4, 41369-6, 22182-3, 46376-0 #### [facility] CLIA [id number] [address] [place] [address] [place] Folate SerPl-mCncon 12-12-19 Folate [Mass/Vol] 11.3 ng/mL Normal >4.7 [facility] Comment on above: Order Comment: Speci men Type: BLOOD SPECIMEN Ordering Facility: [facility] Address: [address] [place] [address] Performed By: #### 2 132-9, 8 #### [facility] CLIA [id number] [address] [place] [address] [place] Iron and Iron binding capaci ty panelon 12-11-2024 Iron [Mass/Vol] 17 ug/dL Low 41-186 [facility] Comment on above: Order Comment: Speci men Type: BLOOD SPECIMEN Ordering Facility: [facility] Address: [address] [place] [address] Performed By: #### 2 132-9, 8 #### [facility] CLIA [id number] [address] [place] [address] [place] Iron binding capacity [Mass/Vol] 416 ug/dL High 232-386 [facility] Comment on above: Order Comment: Speci men Type: BLOOD SPECIMEN Ordering Facility: [facility] Address: [address] [place] [address] Performed By: #### 2 132-9, 228-8 #### [facility] CLIA [id number] [address] [place] [address] [place] Iron/TIBC [Molar ratio] 4.1 % Low 15.0-57.0 [facility] Comment on above: Order Comment: Kunalbecca ricci Type: BLOOD SPECIMEN Ordering Facility: [facility] Address: [address] [place] [address] Performed By: #### 2 132-9, 2284-8 #### [facility] CLIA [id number] [address] OF [place] Magnesium SerPl-mCncon 12-11 Magnesium [Mass/Vol] 1.8 mg/dL Normal 1.7-2.3 [facility] Comment on above: Order Comment: Kunalbecca ricci Type: BLOOD SPECIMEN Ordering Facility: [facility] Address: [address] [place] [address] Performed By: #### 2 276-4, 86079-9, 43608-0, 74525-4 #### [facility] CLIA [id number] [address] STATES [place] NURSING PROGon 12-11-2024 NURSING PROG HNO ID: [id number] Author: BRIANNA BETANCOURT, RN Service: Nursing Author Type: Registered Nurse Type: Nursing Progress Note Filed: 12/11/2024 15:17 Note Text: PATIENT EDUCATION HEART FAILURE PATIENT NAME: Berta Sanches PATIENT LOCATION: [place] [address] [id number]- 2 SURVIVAL SKILLS: Low Sodium Diet Weight Monitoring [...] Cardiology Electronically Signed By: Brianna Betancourt Normal [facility] OCCULT BLD EXAM-DIAGon 12-11 OCCULT BLD EXAM-DIAG Positive Abnormal [facility] Comment on above: Performed By: #### 1 9123-9, 88340-0 #### [facility] CLIA [id number] [address] [place] [address] [place] Prot/Creat Uron 12-11-2024 Protein/Creatinine (U) [Mass ratio] 0.26 mg/mg High <0.15 [facility] Comment on above: Order Comment: Annie ricci Type: BLOOD SPECIMEN Ordering Facility: [facility] Address: [address] [place] [address] Result Comment: Adul t Proteinuria Categories: <0.15 mg/mg is considered normal to mildly increased 0.15 - 0.50 mg/mg is considered moderately increased >0.50 mg/mg is considered severely increased KDIGO. (2013). KDIGO 2012 Clinical Practice Guideline for the Evaluation and Management of Chronic Kidney Disease. Official Journal of the International Society of Nephrology, 3(1), 1-150. Performed By: #### 2 132-9, 2284-8 #### [facility] CLIA [id number] [address] [place] Protein/Creatinine (U) [Mass ratio]on 12-11-2024 Protein (U) [Mass/Vol] 8 mg/dL Normal 0-20 [facility] Comment on above: Order Comment: Annie ricci Type: BLOOD SPECIMEN Ordering Facility: [facility] Address: [address] [place] [address] Performed By: #### 2 132-9, 2284-8 #### [facility] CLIA [id number] [address] [place] [address] [place] Sodium ?Tm Ur-sCncon 025 Sodium Unsp time (U) [Moles/Vol] 67 mmol/L Normal 14-216 [facility] Comment on above: Order Comment: Speci men Type: BLOOD SPECIMEN Ordering Facility: [facility] Address: [address] [place] [address] Performed By: #### 2 132-9, 2284-8 #### [facility] CLIA [id number] [address] [place] [address] [place] UREA NITROGEN, RANDOM URINEo n 12-11-2024 UREA NITROGEN,UR,RAN 400 mg/dL Normal 140-1500 [facility] Comment on above: Order Comment: Speci men Type: BLOOD SPECIMEN Ordering Facility: [facility] Address: [address] [place] [address] Performed By: #### 2 132-9, 4-8 #### [facility] CLIA [id number] [address] OF [facility] URINALYSIS, REFLEX MICROSCOP ICon 12-11-2024 Bilirubin Ql (U) Negative Normal Negative [facility] Comment on above: Order Comment: Speci men Type: URINE SPECIMEN Ordering Facility: [facility] Address: [address] [place] [address] Performed By: #### L [id number] #### [facility] CLIA [id number] [address] OF [place] Clarity (Unsp spec) Clear Normal Clear [facility] Comment on above: Order Comment: Speci men Type: URINE SPECIMEN Ordering Facility: [facility] Address: [address] [place] [address] Performed By: #### L [id number] #### [facility] CLIA [id number] [address] Color (U) Yellow Normal Yellow [facility] Comment on above: Order Comment: Speci men Type: URINE SPECIMEN Ordering Facility: [facility] Address: [address] [place] [address] Performed By: #### L [id number] #### [facility] CLIA [id number] [address] Glucose Test strip (U) [Mass/Vol] Negative Normal Negative [facility] Comment on above: Order Comment: Speci men Type: URINE SPECIMEN Ordering Facility: [facility] Address: [address] [place] [address] Performed By: #### L [id number] #### [facility] CLIA [id number] [address] [place] Hemoglobin Ql (U) Negative Normal Negative [facility] Comment on above: Order Comment: Speci men Type: URINE SPECIMEN Ordering Facility: [facility] Address: [address] [place] [address] Performed By: #### L [id number] #### [facility] CLIA [id number] [address] OF [place] Ketones Ql (U) Negative Normal Negative [facility] Comment on above: Order Comment: Speci men Type: URINE SPECIMEN Ordering Facility: [facility] Address: [address] [place] [address] Performed By: #### L [id number] #### [facility] CLIA [id number] [address] Leukocyte esterase Test strip Ql (U) Negative Normal Negative [facility] Comment on above: Order Comment: Speci men Type: URINE SPECIMEN Ordering Facility: [facility] Address: [address] [place] [address] Performed By: #### L [id number] #### [facility] CLIA [id number] [address] Nitrite Ql (U) Negative Normal Negative [facility] Comment on above: Order Comment: Speci men Type: URINE SPECIMEN Ordering Facility: [facility] Address: [address] [place] [address] Performed By: #### L [id number] #### [facility] CLIA [id number] [address] [place] pH (U) 6.5 [pH] Normal 5.0-8.0 [facility] Comment on above: Order Comment: Speci men Type: URINE SPECIMEN Ordering Facility: [facility] Address: [address] [place] [address] Performed By: #### L [id number] #### [facility] CLIA [id number] [address] OF [place] Protein (U) [Mass/Vol] Negative Normal Negative [facility] Comment on above: Order Comment: Speci men Type: URINE SPECIMEN Ordering Facility: [facility] Address: [address] [place] [address] Performed By: #### L [id number] #### [facility] CLIA [id number] [address] Specific gravity (U) [Rel density] 1.010 Normal 1.005-1.030 [facility] Comment on above: Order Comment: Speci men Type: URINE SPECIMEN Ordering Facility: [facility] Address: [address] [place] [address] Performed By: #### L [id number] #### [facility] CLIA [id number] [address] Urobilinogen Ql (U) 0.2 EU/dL Normal 0.2-1.0 EU/dL [facility] Comment on above: Order Comment: Speci men Type: URINE SPECIMEN Ordering Facility: [facility] Address: [address] [place] [address] Performed By: #### L [id number] #### [facility] CLIA [id number] [address] [place] [address] [place] US RENAL ARTERY/VEINon 12-11 US RENAL ARTERY/VEIN * * *Final Report* * * DATE OF EXAM: Dec 11 2024 9:15AM MDU 1094 - US RENAL ARTERY/VEIN / PROCEDURE [...] LEFT: 60-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 Holistic Nutritionist: JAMES Transcribe Date/Time: Dec 11 2024 11:31A Dictated by : ANNETTA ALLEN DO This examination was interpreted and the report reviewed and electronically signed by: ANNETTA ALLEN DO on Dec 11 2024 11:41AM EST [id number] Normal [facility] Cobalamin (Vitamin B12) [Mass/Vol] 1393 pg/mL High 232-1245 [facility] Comment on above: Order Comment: Speci men Type: BLOOD SPECIMEN Ordering Facility: [facility] Address: [address] [place] [address] Performed By: #### 2 132-9, 2284-8 #### [facility] CLIA [id number] [address] [place] [address] [place] ALLIED HEALTHon 12-10-2024 ALLIED HEALTH HNO ID: [id number] Author: SHONDA CUNNINGHAM RT(R) Service: Radiology Author [...] PATIENT PRESENTS WITH AN IMPLANTABLE OR ATTACHED PUBLIC RELATIONS STUDIES DIRECTOR: No RADIOLOGY DEPARTMENT: General X-ray: Exam(s) Completed: Chest X-Ray PERIPHERAL IV DATA: Not applicable SIGNED BY: RT Boyd(R) December 10, 2024 8:10 AM Normal [facility] CBC W Auto Differential pane l (Bld)on 12-10-2024 Basophils (Bld) [#/Vol] 0.09 10*3/uL Normal <0.11 [facility] Comment on above: Order Comment: Specbecca ricci Type: BLOOD SPECIMEN Ordering Facility: [facility] Address: [address] [place] [address] Performed By: #### 5 7021-8 #### [facility] CLIA [id number] [address] [place] [address] [place] Basophils/100 WBC (Bld) 1.1 % Normal [facility] Comment on above: Order Comment: Kunali men Type: BLOOD SPECIMEN [facility] [place] Address: [address] [place] [address] Performed By: #### 5 7021-8 #### [facility] CLIA [id number] [address] [place] [address] [place] Differential cell count method Nom (Bld) Auto Normal [facility] Comment on above: Order Comment: Speci men Type: BLOOD SPECIMEN Ordering Facility: [facility] Address: [address] [place] [address] Performed By: #### 5 7021-8 #### [facility] CLIA [id number] [address] [place] [address] [place] Eosinophils (Bld) [#/Vol] 0.21 10*3/uL Normal <0.46 [facility] Comment on above: Order Comment: Speci men Type: BLOOD SPECIMEN Ordering Facility: [facility] [place] Address: [address] [place] [address] Performed By: #### 5 7021-8 #### [facility] CLIA [id number] [address] Eosinophils/100 WBC (Bld) 2.6 % Normal [facility] Comment on above: Order Comment: Speci men Type: BLOOD SPECIMEN Ordering Facility: [facility] [place] Address: [address] [place] [address] Performed By: #### 5 7021-8 #### [facility] CLIA [id number] [address] [place] Erythrocyte distribution width (RBC) [Ratio] 16.2 % High 11.5-15.0 [facility] Comment on above: Order Comment: Speci men Type: BLOOD SPECIMEN Ordering Facility: [facility] [place] Address: [address] [place] [address] Performed By: #### 5 7021-8 #### [facility] CLIA [id number] [address] [place] Hematocrit (Bld) [Volume fraction] 26.5 % Low 36.0-46.0 [facility] Comment on above: Order Comment: Speci men Type: BLOOD SPECIMEN Ordering Facility: [facility] [place] Address: [address] [place] [address] Performed By: #### 5 7021-8 #### [facility] CLIA [id number] [address] [place] [address] [place] Hemoglobin (Bld) [Mass/Vol] 8.2 g/dL Low 11.5-15.5 [facility] Comment on above: Order Comment: Speci men Type: BLOOD SPECIMEN Ordering Facility: [facility] [place] Address: [address] [place] [address] Performed By: #### 5 7021-8 #### [facility] CLIA [id number] [address] Immature granulocytes (Bld) [#/Vol] 0.03 10*3/uL Normal <0.10 [facility] Comment on above: Order Comment: Speci men Type: BLOOD SPECIMEN Ordering Facility: [facility] [place] Address: [address] [place] [address] Performed By: #### 5 7021-8 #### [facility] CLIA [id number] [address] Immature granulocytes/100 WBC (Bld) 0.4 % Normal [facility] Comment on above: Order Comment: Speci men Type: BLOOD SPECIMEN Ordering Facility: [facility] Address: [address] [place] [address] Performed By: #### 5 7021-8 #### [facility] CLIA [id number] [address] [place] Lymphocytes (Bld) [#/Vol] 2.52 10*3/uL Normal 1.00-4.00 [facility] Comment on above: Order Comment: Speci men Type: BLOOD SPECIMEN Ordering Facility: [facility] Address: [address] [place] [address] Performed By: #### 5 7021-8 #### [facility] CLIA [id number] [address] Lymphocytes/100 WBC (Bld) 30.7 % Normal [facility] Comment on above: Order Comment: Speci men Type: BLOOD SPECIMEN Ordering Facility: [facility] [place] Address: [address] [place] [address] Performed By: #### 5 7021-8 #### [facility] CLIA [id number] [address] [place] [address] [place] MCH (RBC) [Entitic mass] 28.5 pg Normal 26.0-34.0 [facility] Comment on above: Order Comment: Speci men Type: BLOOD SPECIMEN Ordering Facility: [facility] Address: [address] [place] [address] Performed By: #### 5 7021-8 #### [facility] CLIA [id number] [address] [place] MCHC (RBC) [Mass/Vol] 30.9 g/dL Normal 30.5-36.0 [facility] Comment on above: Order Comment: Speci men Type: BLOOD SPECIMEN Ordering Facility: [facility] Address: [address] [place] [address] Performed By: #### 5 7021-8 #### [facility] CLIA [id number] [address] MCV (RBC) [Entitic vol] 92.0 fL Normal 80.0-100.0 [facility] Comment on above: Order Comment: Speci men Type: BLOOD SPECIMEN Ordering Facility: [facility] Address: [address] [place] [address] Performed By: #### 5 7021-8 #### [facility] CLIA [id number] [address] [place] Monocytes (Bld) [#/Vol] 1.19 10*3/uL High <0.87 [facility] Comment on above: Order Comment: Speci men Type: BLOOD SPECIMEN Ordering Facility: [facility] Address: [address] [place] [address] Performed By: #### 5 7021-8 #### [facility] CLIA [id number] [address] Monocytes/100 WBC (Bld) 14.5 % Normal [facility] Comment on above: Order Comment: Speci men Type: BLOOD SPECIMEN Ordering Facility: [facility] [place] Address: [address] [place] [address] Performed By: #### 5 7021-8 #### [facility] CLIA [id number] [address] [place] Neutrophils (Bld) [#/Vol] 4.17 10*3/uL Normal 1.45-7.50 [facility] Comment on above: Order Comment: Speci men Type: BLOOD SPECIMEN Ordering Facility: [facility] Address: [address] [place] [address] Performed By: #### 5 7021-8 #### [facility] CLIA [id number] [address] OF [place] Neutrophils/100 WBC (Bld) 50.7 % Normal [facility] Comment on above: Order Comment: Speci men Type: BLOOD SPECIMEN Ordering Facility: [facility] Address: [address] [place] [address] Performed By: #### 5 7021-8 #### [facility] CLIA [id number] [address] Nucleated RBC (Bld) [#/Vol] 10*3/uL Normal <0.01 [facility] Comment on above: Order Comment: Speci men Type: BLOOD SPECIMEN Ordering Facility: [facility] Address: [address] [place] [address] Performed By: #### 5 7021-8 #### [facility] CLIA [id number] [address] Nucleated RBC/100 WBC (Bld) [Ratio] 0.0 /100 WBC Normal [facility] Comment on above: Order Comment: Speci men Type: BLOOD SPECIMEN Ordering Facility: [facility] Address: [address] [place] [address] Performed By: #### 5 7021-8 #### [facility] CLIA [id number] [address] OF [place] Platelet mean volume (Bld) [Entitic vol] 10.5 fL Normal 9.0-12.7 [facility] Comment on above: Order Comment: Speci men Type: BLOOD SPECIMEN Ordering Facility: [facility] [place] Address: [address] [place] [address] Performed By: #### 5 7021-8 #### [facility] CLIA [id number] [address] [place] [address] [place] Platelets (Bld) [#/Vol] 168 10*3/uL Normal 150-400 [facility] Comment on above: Order Comment: Speci men Type: BLOOD SPECIMEN Ordering Facility: [facility] Address: [address] [place] [address] Performed By: #### 5 7021-8 #### [facility] CLIA [id number] [address] OF [facility] RBC (Bld) [#/Vol] 2.88 10*6/uL Low 3.90-5.20 [facility] Comment on above: Order Comment: Speci men Type: BLOOD SPECIMEN Ordering Facility: [facility] Address: [address] [place] [address] Performed By: #### 5 7021-8 #### [facility] CLIA [id number] [address] WBC (Bld) [#/Vol] 8.21 10*3/uL Normal 3.70-11.00 [facility] Comment on above: Order Comment: Speci men Type: BLOOD SPECIMEN Ordering Facility: [facility] Address: [address] [place] [address] Performed By: #### 5 7021-8 #### [facility] CLIA [id number] [address] CONSULTon 12-10-2024 CONSULT HNO ID: [id number] Author: BETSY HALL MD Service: Nephrology Author Type: Physician Type: Consults Filed: 12/10/2024 19:42 Note Text: INPATIENT INITIAL NEPHROLOGY CONSULT SERVICE DATE: 12/10/2024 SERVICE TIME: 7:30 PM REASON FOR CONSULT: MONIQUE/ CRS REQUESTING PHYSICIAN: Dr Tuttle PRIMARY CARE PHYSICIAN: Deysi Collazo APRN.SCRAP CHARGER CC: SOB and edema Subjective Ms. 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 Lua PACEMAKER 10/2019 PART. HYSTERECTOMY W/WO RMVL OVARIES/TUBES 1974 h/o cervical cancer ovaries remain PAST SURGICAL HISTORY OF 1996 Aortic valve repair, Dr. Apodaca PAST SURGICAL HISTORY OF 2001 [address] Beltrán, [facility] PAST SURGICAL HISTORY OF 2015 clipping [...] red win (more content not included)... Normal [facility] Comprehensive metabolic 2000 panelon 12-10-2024 Albumin [Mass/Vol] 3.8 g/dL Low 3.9-4.9 [facility] Comment on above: Order Comment: Speci men Type: URINE SPECIMEN Ordering Facility: [facility] Address: [address] [place] [address] Performed By: #### L [id number] #### [facility] CLIA [id number] [address] [place] [address] [place] ALP [Catalytic activity/Vol] 139 U/L High 34-123 [facility] Comment on above: Order Comment: Speci men Type: URINE SPECIMEN Ordering Facility: [facility] Address: [address] [place] [address] Performed By: #### L [id number] #### [facility] CLIA [id number] [address] [place] [address] [place] ALT [Catalytic activity/Vol] 12 U/L Normal 7-38 [facility] Comment on above: Order Comment: Speci men Type: URINE SPECIMEN Ordering Facility: [facility] Address: [address] [place] [address] Performed By: #### L [id number] #### [facility] CLIA [id number] [address] [place] [address] [place] Anion gap [Moles/Vol] 13 mmol/L Normal 8-15 [facility] Comment on above: Order Comment: Speci men Type: URINE SPECIMEN Ordering Facility: [facility] Address: [address] [place] [address] Performed By: #### L [id number] #### [facility] CLIA [id number] [address] [place] [address] [place] AST [Catalytic activity/Vol] 27 U/L Normal 13-35 [facility] Comment on above: Order Comment: Speci men Type: URINE SPECIMEN Ordering Facility: [facility] Address: [address] [place] [address] Performed By: #### L [id number] #### [facility] CLIA [id number] [address] [place] [address] [place] Bilirubin [Mass/Vol] 0.8 mg/dL Normal 0.2-1.3 [facility] Comment on above: Order Comment: Speci men Type: URINE SPECIMEN Ordering Facility: [facility] Address: [address] [place] [address] Performed By: #### L [id number] #### [facility] CLIA [id number] [address] [place] [address] [place] Calcium [Mass/Vol] 9.0 mg/dL Normal 8.5-10.2 [facility] Comment on above: Order Comment: Speci men Type: URINE SPECIMEN Ordering Facility: [facility] Address: [address] [place] [address] Performed By: #### L [id number] #### [facility] CLIA [id number] [address] STATES OF [facility] Chloride [Moles/Vol] 98 mmol/L Normal 98-107 [facility] Comment on above: Order Comment: Speci men Type: URINE SPECIMEN Ordering Facility: [facility] Address: [address] [place] [address] Performed By: #### L [id number] #### [facility] CLIA [id number] [address] [place] [address] [place] CO2 [Moles/Vol] 20 mmol/L Low 22-30 [facility] Comment on above: Order Comment: Speci men Type: URINE SPECIMEN Ordering Facility: [facility] Address: [address] [place] [address] Performed By: #### L [id number] #### [facility] CLIA [id number] [address] [place] [address] [place] Creatinine [Mass/Vol] 1.90 mg/dL High 0.58-0.96 [facility] Comment on above: Order Comment: Speci men Type: URINE SPECIMEN Ordering Facility: [facility] Address: [address] [place] [address] Performed By: #### L [id number] #### [facility] CLIA [id number] [address] Creatinine and Glomerular filtration rate.predicted panel (S/P/Bld) 27 mL/min/1.73m??? Low >=60 [facility] Comment on above: Order Comment: Speci men Type: URINE SPECIMEN Ordering Facility: [facility] Address: [address] [place] [address] Result Comment: Mira mated Glomerular Filtration Rate [...] reflect actual GFR. Performed By: #### L [id number] #### [facility] CLIA [id number] [address] [place] [address] [place] Glucose [Mass/Vol] 140 mg/dL High 74-99 [facility] Comment on above: Order Comment: Speci men Type: URINE SPECIMEN Ordering Facility: [facility] Address: [address] [place] [address] Result Comment: The [place] [employer] (ADA) provides guidance for cutoff [...] Standards of Medical Care in Diabetes 2016, [place] [employer]. Diabetes Care. 2016.39(Suppl 1). Performed By: #### L [id number] #### [facility] CLIA [id number] [address] [place] [address] [place] Potassium [Moles/Vol] 4.2 mmol/L Normal 3.7-5.1 [facility] Comment on above: Order Comment: Speci men Type: URINE SPECIMEN Ordering Facility: [facility] Address: [address] [place] [address] Performed By: #### L [id number] #### [facility] CLIA [id number] [address] [place] [address] [place] Protein [Mass/Vol] 7.3 g/dL Normal 6.3-8.0 [facility] Comment on above: Order Comment: Speci men Type: URINE SPECIMEN Ordering Facility: [facility] Address: [address] [place] [address] Performed By: #### L [id number] #### [facility] CLIA [id number] [address] [place] [address] [place] Sodium [Moles/Vol] 131 mmol/L Low 136-144 [facility] Comment on above: Order Comment: Speci men Type: URINE SPECIMEN Ordering Facility: [facility] Address: [address] [id number] Performed By: #### L [id number] #### [facility] CLIA [id number] [address] [place] [address] [place] Urea nitrogen [Mass/Vol] 63 mg/dL High 7-21 [facility] Comment on above: Order Comment: Speci men Type: URINE SPECIMEN Ordering Facility: [facility] Address: [address] [place] [address] Performed By: #### L [id number] #### [facility] CLIA [id number] [address] OF [facility] ECG COMPLETEon 12-10-2024 ECG COMPLETE Ventricular Rate : 7 9 BPM QRS Duration : 118 ms Q-T Interval : 418 ms QTC Calculation(Bazett) : 479 ms Calculated R [place] : -30 degrees Calculated T [place] : 161 degrees ATRIAL FIBRILLATION WITH PREMATURE VENTRICULAR OR ABERRANTLY CONDUCTED COMPLEXES LEFT AXIS DEVIATION LEFT VENTRICULAR HYPERTROPHY WITH QRS WIDENING ( R in aVL , [place] product ) T WAVE ABNORMALITY, CONSIDER LATERAL ISCHEMIA ABNORMAL ECG No Stemi Confirmed by ANSON MANRIQUE DO ([id number]) on 12/10/2024 3:12:25 PM NAME : BERTA SANCHES PID : [id number] : 1945 Gender : Female Race : ORD : [id number] Procedure Date : Dec 10 2024 07:55:48 Edit Date : Dec 10 2024 15:12:31 Diagnosis: ATRIAL FIBRILLATION WITH PREMATURE VENTRICULAR OR ABERRANTLY CONDUCTED COMPLEXES LEFT AXIS DEVIATION LEFT VENTRICULAR HYPERTROPHY WITH QRS WIDENING ( R in aVL , [place] product ) T WAVE ABNORMALITY, CONSIDER LATERAL ISCHEMIA ABNORMAL ECG No Stemi Confirmed by ANSON MANRIQUE DO ([id number]) on 12/10/2024 3:12:25 PM Test Reason : Chest Pain Location : 1 : ER ED Overread By : ANSON MANRIQUE DO Edited By : ANSON MANRIQUE DO Referred By : , Acquired by : [id number], Normal [facility] ED NOTEon 12-10-2024 ED NOTE HNO ID: [id number] Author: ANNETTE, RODERICK, RN Service: ? 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 Lua PACEMAKER 10/2019 PART. HYSTERECTOMY W/WO RMVL OVARIES/TUBES 1973 h/o cervical cancer ovaries remain PAST SURGICAL HISTORY OF 1996 Aortic valve repair, Dr. Apodaca PAST SURGICAL HISTORY OF 2001 [address] Beltrán, [facility] PAST SURGICAL HISTORY OF 2015 clipping [...] Weight H (more content not included)... Normal [facility] HIGH SENSITIVITY TROPONIN T (INITIAL)on 12-10-2024 Troponin T.cardiac High sensitivity method [Mass/Vol] 72 ng/L High <[address] [place] [address] Comment on above: Order Comment: Speci men Type: URINE SPECIMEN Ordering Facility: [facility] Address: [address] [place] [address] Performed By: #### L [id number] #### [facility] CLIA [id number] [address] HIGH SENSITIVITY TROPONIN T (SECOND)on 12-10-2024 Troponin T.cardiac High sensitivity method [Mass/Vol] 66 ng/L High <[address] [place] [address] Comment on above: Order Comment: Speci men Type: BLOOD SPECIMEN Ordering Facility: [facility] Address: [address] [place] [address] Performed By: #### 2 132-9, 2284-8 #### [facility] CLIA [id number] [address] HIGH SENSITIVITY TROPONIN T (THIRD) 3 HRS AFTER INITIALon 12-10-2024 Troponin T.cardiac High sensitivity method [Mass/Vol] 63 ng/L High <[address] [place] [address] Comment on above: Order Comment: Speci men Type: BLOOD SPECIMEN Ordering Facility: [facility] Address: [address] [place] [address] Performed By: #### 2 132-9, 2284-8 #### [facility] CLIA [id number] [address] STATES OF [place] HISTORY PHYSICALon HISTORY PHYSICAL HNO ID: [id number] Author: JUAN DIEGO KNOWLES MD Service: Hospital Medicine Author Type: Physician Type: H&P Filed: 12/10/2024 13:50 Note Text: HISTORY AND PHYSICAL EXAMINATION PRIMARY CARE PHYSICIAN: Deysi Collazo APRN.SCRAP CHARGER HPI: 79 yo woman with hx of 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 Lua PACEMAKER 10/2019 PART. HYSTERECTOMY W/WO RMVL OVARIES/TUBES 1974 h/o cervical cancer ovaries remain PAST SURGICAL HISTORY OF 1996 Aortic valve repair, Dr. Apodaca PAST SURGICAL HISTORY OF 2001 [address] Beltrán, [facility] PAST SURGICAL HISTORY OF 2016 clipping [...] progressive SO (more content not included)... Normal [facility] Magnesium [facility] 12-10 Magnesium [Mass/Vol] 1.9 mg/dL Normal 1.7-2.3 [facility] Comment on above: Order Comment: Speci men Type: URINE SPECIMEN Ordering Facility: [facility] Address: [address] [place] [address] Performed By: #### L [id number] #### [facility] CLIA [id number] [address] [place] OF [place] NT-proBNP [facility] 12-10 Natriuretic peptide.B prohormone N-Terminal [Mass/Vol] 26779 pg/mL High <450 [facility] Comment on above: Order Comment: Speci men Type: URINE SPECIMEN Ordering Facility: [facility] Address: [address] [place] [address] Performed By: #### L [id number] #### [facility] CLIA [id number] [address] [place] OF [place] XR CHEST 1V FRONTAL [...] effusions or pneumothorax. Cardiomediastinal silhouette: There is cardiomegaly/enlargeme nt of the cardiac silhouette. Other: None. IMPRESSION: No acute radiographic abnormalities in the lungs. Cardiomegaly/enlargeme nt of the cardiac silhouette. Holistic Nutritionist: PSCB Transcribe Date/Time: Dec 10 2024 8:28A Dictated by : KIERSTEN MONTENEGRO MD This examination was interpreted and the report reviewed and electronically signed by: KIERSTEN MONTENEGRO MD on Dec 10 2024 8:31AM EST [id number] Normal [facility] Basic metabolic 2000 panelon 12-01-2024 Anion gap [Moles/Vol] 14 mmol/L Normal 8-15 [facility] Comment on above: Order Comment: Annie ricci Type: BLOOD SPECIMEN Ordering Facility: [facility] Address: [address] [place] [address] Performed By: #### 2 4331-1 #### [facility] CLIA [id number] [address] [place] [address] [place] [facility] [id number] [address] [place] [address] [place] #### 66546-5 #### [facility] CLIA [id number] [address] [place] [address] [place] Calcium [Mass/Vol] 9.5 mg/dL Normal 8.5-10.2 [facility] Comment on above: Order Comment: Annie ricci Type: BLOOD SPECIMEN Ordering Facility: [facility] Address: [address] [place] [address] Performed By: #### 2 4331-1 #### [facility] CLIA [id number] [address] [place] [address] [place] [facility] [id number] [address] [place] [address] [place] #### 91962-3 #### [facility] CLIA [id number] [address] [place] [address] [place] Chloride [Moles/Vol] 97 mmol/L Low 98-107 [facility] Comment on above: Order Comment: Speci men Type: BLOOD SPECIMEN Ordering Facility: [facility] Address: [address] [place], [place] [address] Performed By: #### 2 4331-1 #### [facility] CLIA [id number] [address] [place] [address] [place] [facility] CLIA [id number] [address] [place] [address] [place] #### 14749-1 #### [facility] CLIA [id number] [address] [place] [address] [place] CO2 [Moles/Vol] 22 mmol/L Normal 22-30 [facility] Comment on above: Order Comment: Speci men Type: BLOOD SPECIMEN Ordering Facility: [facility] Address: [address] [place] [address] Performed By: #### 2 4331-1 #### [facility] CLIA [id number] [address] [place] [address] [place] [facility] CLIA [id number] [address] [place] [address] [place] #### 36702-1 #### [facility] CLIA [id number] [address] [place] [address] [place] Creatinine [Mass/Vol] 1.79 mg/dL High 0.58-0.96 [facility] Comment on above: Order Comment: Speci men Type: BLOOD SPECIMEN Ordering Facility: [facility] Address: [address] [place] [address] Performed By: #### 2 4331-1 #### [facility] CLIA [id number] [address] [place] [address] [place] [facility] CLIA [id number] [address] [place] [address] [place] #### 84037-9 #### [facility] CLIA [id number] [address] [place] [address] [place] Creatinine and Glomerular filtration rate.predicted panel (S/P/Bld) 29 mL/min/1.73m??? Low >=60 [facility] Comment on above: Order Comment: Speci men Type: BLOOD SPECIMEN Ordering Facility: [facility] Address: [address] [place] [address] Result Comment: Mira mated Glomerular Filtration Rate [...] GFR. Performed By: #### 2 4331-1 #### [facility] CLIA [id number] [address] [place] [address] [place] [facility] [id number] [address] [place] [address] [place] #### 59022-5 #### [facility] CLIA [id number] [address] [place] [address] [place] Glucose [Mass/Vol] 151 mg/dL High 74-99 [facility] Comment on above: Order Comment: Speci men Type: BLOOD SPECIMEN Ordering Facility: [facility] Address: [address] [place] [address] Result Comment: The [place] Diabetes Association (ADA) provides guidance for cutoff [...] Standards of Medical Care in Diabetes 2016, [place] Diabetes Association. Diabetes Care. 2016.39(Suppl 1). Performed By: #### 2 4331-1 #### [facility] CLIA [id number] [address] [place] [address] [place] [facility] [id number] [place] [address] [place] #### 77212-2 #### [facility] CLIA [id number] [address] [place] [address] [place] Potassium [Moles/Vol] 4.2 mmol/L Normal 3.7-5.1 [facility] Comment on above: Order Comment: Speci men Type: BLOOD SPECIMEN Ordering Facility: [facility] Address: [address] [place] [address] Performed By: #### 2 4331-1 #### [facility] CLIA [id number] [address] [place] [address] [place] [facility] [id number] [address] [place] [address] [place] #### 87362-7 #### [facility] CLIA [id number] [address] [place] [address] [place] Sodium [Moles/Vol] 133 mmol/L Low 136-144 [facility] Comment on above: Order Comment: Speci men Type: BLOOD SPECIMEN Ordering Facility: [facility] Address: [address] [place], [place] [address] Performed By: #### 2 4331-1 #### [facility] CLIA [id number] [address] [place] [address] [place] [facility] CLIA [id number] [address] [place] [address] [place] #### 85988-4 #### [facility] CLIA [id number] [address] [place] [address] [place] Urea nitrogen [Mass/Vol] 37 mg/dL High 7-21 [facility] Comment on above: Order Comment: Speci men Type: BLOOD SPECIMEN Ordering Facility: [facility] Address: [address] [place] [address] Performed By: #### 2 4331-1 #### [facility] CLIA [id number] [address] [place] [address] [place] [facility] CLIA [id number] [address] [place] [address] [place] #### 63963-8 #### [facility] CLIA [id number] [address] [place] [address] [place] NT-proBNP [facility] 12-01 Natriuretic peptide.B prohormone N-Terminal [Mass/Vol] 92395 pg/mL High <450 [facility] Comment on above: Order Comment: Speci men Type: BLOOD SPECIMEN Ordering Facility: [facility] Address: [address] [place] [address] Performed By: #### 3 3762-6 #### [facility] CLIA [id number] [address] [place] [address] [place] Basic metabolic 2000 panelon 11-20-2024 Anion gap [Moles/Vol] 19 mmol/L High 8-15 [facility] Comment on above: Order Comment: Speci men Type: BLOOD SPECIMEN Ordering Facility: [facility] Address: [address] [place] [address] Performed By: #### 3 3762-6 #### [facility] CLIA [id number] [address] [place], [place] [address] [place] Calcium [Mass/Vol] 9.5 mg/dL Normal 8.5-10.2 [facility] Comment on above: Order Comment: Speci men Type: BLOOD SPECIMEN Ordering Facility: [facility] Address: [address] [place] [address] Performed By: #### 3 3762-6 #### [facility] CLIA [id number] [address] [place] [address] [place] Chloride [Moles/Vol] 98 mmol/L Normal 98-107 [facility] Comment on above: Order Comment: Speci men Type: BLOOD SPECIMEN Ordering Facility: [facility] Address: [address] [place] [address] Performed By: #### 3 3762-6 #### [facility] CLIA [id number] [address] [place] [address] [place] CO2 [Moles/Vol] 18 mmol/L Low 22-30 [facility] Comment on above: Order Comment: Speci men Type: BLOOD SPECIMEN Ordering Facility: [facility] Address: [address] [place], [place] [address] Performed By: #### 3 3762-6 #### [facility] CLIA [id number] [address] [place], [place] [address] [place] Creatinine [Mass/Vol] 1.70 mg/dL High 0.58-0.96 [facility] Comment on above: Order Comment: Speci men Type: BLOOD SPECIMEN Ordering Facility: [facility] Address: [address] [place], [place] [address] Performed By: #### 3 3762-6 #### [facility] CLIA [id number] [address] [place] [address] [place] Creatinine and Glomerular filtration rate.predicted panel (S/P/Bld) 30 mL/min/1.73m??? Low >=60 [facility] Comment on above: Order Comment: Annie ricci Type: BLOOD SPECIMEN Ordering Facility: [facility] Address: [address] [place] [address] Result Comment: Mira mated Glomerular Filtration Rate [...] GFR. Performed By: #### 3 3762-6 #### [facility] CLIA [id number] [address] [place] [address] [place] Glucose [Mass/Vol] 150 mg/dL High 74-99 [facility] Comment on above: Order Comment: Annie ricci Type: BLOOD SPECIMEN Ordering Facility: [facility] Address: [address] [place] [address] Result Comment: The [place] Diabetes Association (ADA) provides guidance for cutoff [...] Standards of Medical Care in Diabetes 2016, [place] Diabetes Association. Diabetes Care. 2016.39(Suppl 1). Performed By: #### 3 3762-6 #### [facility] CLIA [id number] [address] [place], [place] [address] [place] Potassium [Moles/Vol] 4.6 mmol/L Normal 3.7-5.1 [facility] Comment on above: Order Comment: Speci men Type: BLOOD SPECIMEN Ordering Facility: [facility] Address: [address] [place] [address] Performed By: #### 3 3762-6 #### [facility] CLIA [id number] [address] [place] [address] [place] Sodium [Moles/Vol] 135 mmol/L Low 136-144 [facility] Comment on above: Order Comment: Speci men Type: BLOOD SPECIMEN Ordering Facility: [facility] Address: [address] [place] [address] Performed By: #### 3 3762-6 #### [facility] CLIA [id number] [address] [place] [address] [place] Urea nitrogen [Mass/Vol] 37 mg/dL High 7-21 [facility] Comment on above: Order Comment: Speci men Type: BLOOD SPECIMEN Ordering Facility: [facility] Address: [address] [place] [address] Performed By: #### 3 3762-6 #### [facility] CLIA [id number] [address] [place] [address] [place] CNOVon 11-20-2024 CNOV Office Visit (JOHNNY ) BERTA SANCHES ([id number]) 1945 F [place] Date Time Provider Department 11/20/24 8:00 AM CARLA BURDICK During your visit today, we recorded the following information about you: Pulse Respiration Blood pressure Weight 84/minute 12/minute 154/62 65.2 kg Height 1.575 m Carla Burdick MD 11/20/2024 8:50 AM Signed [facility] CARDIOLOGY Cardiology ([facility]) [address] [facility] [id number] OUTPATIENT VISIT DATE PRIMARY CARE PHYSICIAN: Gerard Le [address] [place] [address] HISTORY OF PRESENT ILLNESS: Ms. Sanches is [...] interstitial markings, moderate cardiomegaly Atrial fibrillation (HCC) Pedor aneurysm of anterior communicating artery (HCC) Dr. 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 Lua PACEMAKER 10/2019 PART. HYSTERECTOMY W/WO RMVL OVARIES/TUBES 1974 h/o cervical cancer ovaries remain PAST SURGICAL HISTORY OF 1996 Aortic valve repair, Dr. Apodaca PAST SURGICAL HISTORY OF 2001 [address] Beltrán, [facility] PAST SURGICAL HISTORY OF 2016 clipping [...] Hypotension MEDICATIONS: (more content not included)... Normal [facility] NT-proBNP [facility] 11-20 Natriuretic peptide.B prohormone N-Terminal [Mass/Vol] 76140 pg/mL High <450 [facility] Comment on above: Order Comment: Speci men Type: BLOOD SPECIMEN Ordering Facility: [facility] Address: [address] [place] [address] Performed By: #### 3 3762-6 #### [facility] CLIA [id number] [address] [place] [address] [facility] CNPNon 11-14-2024 CNPN Telephone (CARDWS) BERTA SANCHES ([id number]) 1945 F [facility] Date Time Provider Department 11/14/24 CARLA [...] on Wednesday when I am there at [place]. Will plan to repeat blood work at [...] 02/26/2014 03/21/2022 Intracranial aneurysm [I67.1] 08/30/2015 10/05/2022 [facility] current use of antiarrhythmic medical*10/20/2016 09/12/2021 Prosthetic [...] Colovesical f (more content not included)... Normal [facility] Basic metabolic 2000 panelon 11-13-2024 Anion gap [Moles/Vol] 11 mmol/L Normal 8-15 [facility] Comment on above: Order Comment: Speci men Type: BLOOD SPECIMEN Ordering Facility: [facility] Address: [address] [place] [address] Performed By: #### 2 4331-1 #### [facility] CLIA [id number] [address] [place] [address] [place] [facility] [id number] [address] [place] [address] [place] #### 48799-8 #### [facility] CLIA [id number] [address] [place] [address] [place] Calcium [Mass/Vol] 9.3 mg/dL Normal 8.5-10.2 [facility] Comment on above: Order Comment: Speci men Type: BLOOD SPECIMEN Ordering Facility: [facility] Address: [address] [place] [address] Performed By: #### 2 4331-1 #### [facility] CLIA [id number] [address] [place] [address] [place] [facility] CLIA [id number] [address] [place] [address] [place] #### 50079-3 #### [facility] CLIA [id number] [address] [place] [address] [place] Chloride [Moles/Vol] 98 mmol/L Normal 98-107 [facility] Comment on above: Order Comment: Speci men Type: BLOOD SPECIMEN Ordering Facility: [facility] Address: [address] [place] [address] Performed By: #### 2 4331-1 #### [facility] CLIA [id number] [address] [place], [place] [address] [place] [facility] CLIA [id number] [address] [place] [address] [place] #### 35405-7 #### [facility] CLIA [id number] [address] [place] [address] [place] CO2 [Moles/Vol] 26 mmol/L Normal 22-30 [facility] Comment on above: Order Comment: Speci men Type: BLOOD SPECIMEN Ordering Facility: [facility] Address: [address] [place] [id number] Performed By: #### 2 4331-1 #### [facility] CLIA [id number] [address] [place] [address] [place] [facility] CLIA [id number] [address] [place] [address] [place] #### 20967-2 #### [facility] CLIA [id number] [address] [place], [place] [address] [place] Creatinine [Mass/Vol] 1.82 mg/dL High 0.58-0.96 [facility] Comment on above: Order Comment: Speci men Type: BLOOD SPECIMEN Ordering Facility: [facility] Address: [address] [place] [address] Performed By: #### 2 4331-1 #### [facility] CLIA [id number] [address] [place], [place] [address] [place] [facility] CLIA [id number] [address] [place] [address] [place] #### 88980-8 #### [facility] CLIA [id number] [address] [place] [address] [place] Creatinine and Glomerular filtration rate.predicted panel (S/P/Bld) 28 mL/min/1.73m??? Low >=60 [facility] Comment on above: Order Comment: Annie ricci Type: BLOOD SPECIMEN Ordering Facility: [facility] Address: [address] [place] [address] Result Comment: Mira mated Glomerular Filtration Rate [...] GFR. Performed By: #### 2 4331-1 #### [facility] CLIA [id number] [address] [place] [address] [place] [facility] CLIA [id number] [address] [place] [address] [place] #### 61838-6 #### [facility] CLIA [id number] [address] [place] [address] [place] Glucose [Mass/Vol] 127 mg/dL High 74-99 [facility] Comment on above: Order Comment: Annie ricci Type: BLOOD SPECIMEN Ordering Facility: [facility] Address: [address] [place] [address] Result Comment: The [place] Diabetes Association (ADA) provides guidance for cutoff [...] Standards of Medical Care in Diabetes 2016, [place] Diabetes Association. Diabetes Care. 2016.39(Suppl 1). Performed By: #### 2 4331-1 #### [facility] CLIA [id number] [address] [place] [address] [place] [facility] [id number] [address] [place] [address] [place] #### 02075-3 #### [facility] CLIA [id number] [address] [place] [address] [place] Potassium [Moles/Vol] 4.0 mmol/L Normal 3.7-5.1 [facility] Comment on above: Order Comment: Speci men Type: BLOOD SPECIMEN Ordering Facility: [facility] Address: [address] [place] [address] Performed By: #### 2 4331-1 #### [facility] CLIA [id number] [address] [place] [address] [place] [facility] [id number] [address] [place] [address] [place] #### 10656-3 #### [facility] CLIA [id number] [address] [place] [address] [place] Sodium [Moles/Vol] 135 mmol/L Low 136-144 [facility] Comment on above: Order Comment: Speci men Type: BLOOD SPECIMEN Ordering Facility: [facility] Address: [address] [place] [address] Performed By: #### 2 4331-1 #### [facility] CLIA [id number] [address] [place] [address] [place] [facility] [id number] [address] [place] [address] [place] #### 20935-9 #### [facility] CLIA [id number] [address] [place] [address] [place] Urea nitrogen [Mass/Vol] 41 mg/dL High 7-21 [facility] Comment on above: Order Comment: Speci men Type: BLOOD SPECIMEN Ordering Facility: [facility] Address: [address] [place] [address] Performed By: #### 2 4331-1 #### [facility] CLIA [id number] [address] [place] [address] [place] [facility] [id number] [address] [place] [address] [place] #### 64776-9 #### [facility] CLIA [id number] [address] [place] [address] [place] NT-proBNP [facility] 11-13 Natriuretic peptide.B prohormone N-Terminal [Mass/Vol] 94057 pg/mL High <450 [facility] Comment on above: Order Comment: Speci men Type: BLOOD SPECIMEN Ordering Facility: [facility] Address: [address] [place] [address] Performed By: #### 2 4331-1 #### [facility] CLIA [id number] [address] [place] [address] [place] [facility] [id number] [address] [place] [address] [place] #### 80101-1 #### [facility] CLIA [id number] [address] [place] [address] [place] CNOVon 11-06-2024 CNOV Office Visit (CARDWS ) BERTA SANCHES ([id number]) 1945 F [place] Date Time Provider Department 11/06/24 2:40 PM CARLA BURDICK During your visit today, we recorded the following information about you: Pulse Respiration Blood pressure Weight 68/minute 12/minute 134/54 68.9 kg Height 1.575 m Carla Burdick MD 11/06/2024 5:01 PM Signed [facility] SE[facility]IONAL CARDIOLOGY Cardiology ([facility]) [address] [facility] [id number] OUTPATIENT VISIT DATE 11/06/2024 PRIMARY CARE PHYSICIAN: Gerard Le [address] [place] [address] HISTORY OF PRESENT ILLNESS: Ms. 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 Lua PACEMAKER 10/2019 PART. HYSTERECTOMY W/WO RMVL OVARIES/TUBES 1973 h/o cervical cancer ovaries remain PAST SURGICAL HISTORY OF 1996 Aortic valve repair, Dr. Apodaca PAST SURGICAL HISTORY OF 2001 [address] Beltrán, [facility] PAST SURGICAL HISTORY OF 2015 clipping [...] Allergen Reactions (more content not included)... Normal [facility] Basic metabolic 2000 panelon 11-03-2024 Anion gap [Moles/Vol] 11 mmol/L 8 - 15 mmol/L [facility] Calcium [Mass/Vol] 9.1 mg/dL 8.5 - 10. 2 mg/dL [facility] Chloride [Moles/Vol] 84 mmol/L Low 98 - 10 7 mmol/L [facility] CO2 [Moles/Vol] 27 mmol/L 22 - 30 mmol/L [facility] Creatinine [Mass/Vol] 2.36 mg/dL High 0.58 - 0.96 mg/dL [facility] GFR/1.73 sq M.predicted among non-blacks MDRD (S/P/Bld) [Vol rate/Area] 20 mL/min/{1.73_m2} Low - PINF [facility] Comment on above: Estimated Glomerular Filtration Rate [...] 114 mg/dL High 74 - 99 mg/dL [facility] Comment on above: The [place] Diabete s Association (ADA) provides guidance for [...] Standards of Medical Care in Diabetes 2016, [place] Diabetes Association. Diabetes Care. 2016.39(Suppl 1). Interpretation and review of laboratory results Abnormal [facility] Potassium [Moles/Vol] 4.3 mmol/L 3.7 - 5.1 mmol/L [facility] Sodium [Moles/Vol] 122 mmol/L Low 136 - 144 mmol/L [facility] Urea nitrogen [Mass/Vol] 57 mg/dL High 7 - 21 mg/dL [facility] Anion gap [Moles/Vol] 11 mmol/L Normal 8-15 [facility] Comment on above: Order Comment: Annie ricci Type: BLOOD SPECIMEN Ordering Facility: [facility] Address: [address] [place] [address] Performed By: #### 2 132-9, 2283-8 #### [facility] CLIA [id number] [address] [place] [address] [place] Calcium [Mass/Vol] 9.1 mg/dL Normal 8.5-10.2 [facility] Comment on above: Order Comment: Annie ricci Type: BLOOD SPECIMEN Ordering Facility: [facility] Address: [address] [place] [address] Performed By: #### 2 132-9, 2283-8 #### [facility] CLIA [id number] [address] [place] [address] [place] Chloride [Moles/Vol] 84 mmol/L Low 98-107 [facility] Comment on above: Order Comment: Annie ricci Type: BLOOD SPECIMEN Ordering Facility: [facility] Address: [address] [place] [address] Performed By: #### 2 132-9, 8 #### [facility] CLIA [id number] [address] [place] [address] [place] CO2 [Moles/Vol] 27 mmol/L Normal 22-30 [facility] Comment on above: Order Comment: Annie ricci Type: BLOOD SPECIMEN Ordering Facility: [facility] Address: [address] [place], [place] [address] Performed By: #### 2 132-9, 4-8 #### [facility] CLIA [id number] [address] [place] [address] [place] Creatinine [Mass/Vol] 2.36 mg/dL High 0.58-0.96 [facility] Comment on above: Order Comment: Annie ricci Type: BLOOD SPECIMEN Ordering Facility: [facility] Address: [address] [place] [address] Performed By: #### 2 132-9, 2283-8 #### [facility] CLIA [id number] [address] [place] [address] [place] Creatinine and Glomerular filtration rate.predicted panel (S/P/Bld) 20 mL/min/1.73m??? Low >=60 [facility] Comment on above: Order Comment: Annie ricci Type: BLOOD SPECIMEN Ordering Facility: [facility] Address: [address] [place] [address] Result Comment: Mira mated Glomerular Filtration Rate [...] Performed By: #### 2 132-9, 4-8 #### [facility] CLIA [id number] [address] [place] [address] [place] Glucose [Mass/Vol] 114 mg/dL High 74-99 [facility] Comment on above: Order Comment: Annie ricci Type: BLOOD SPECIMEN Ordering Facility: [facility] Address: [address] [place] [address] Result Comment: The [place] Diabetes Association (ADA) provides guidance for cutoff [...] Standards of Medical Care in Diabetes 2016, [place] Diabetes Association. Diabetes Care. 2016.39(Suppl 1). Performed By: #### 2 132-9, 2283-8 #### [facility] CLIA [id number] [address] Potassium [Moles/Vol] 4.3 mmol/L Normal 3.7-5.1 [facility] Comment on above: Order Comment: Annie ricci Type: BLOOD SPECIMEN Ordering Facility: [facility] Address: [address] [place] [address] Performed By: #### 2 132-9, 2283-8 #### [facility] CLIA [id number] [address] Sodium [Moles/Vol] 122 mmol/L Low 136-144 [facility] Comment on above: Order Comment: Annie ricci Type: BLOOD SPECIMEN Ordering Facility: [facility] Address: [address] [place] [address] Performed By: #### 2 132-9, 2283-8 #### [facility] CLIA [id number] [address] Urea nitrogen [Mass/Vol] 57 mg/dL High 7-21 [facility] Comment on above: Order Comment: Annie ricci Type: BLOOD SPECIMEN Ordering Facility: [facility] Address: [address] [place] [address] Performed By: #### 2 132-9, 2283-8 #### [facility] CLIA [id number] [address] [facility] CNOVon 11-03-2024 CNOV Office Visit ([facility] ) BERTA SANCHES ([id number]) 1945 F [place] Date Time Provider Department 11/03/24 9:00 AM ALBIN GU [facility] During your visit today, we recorded the following information about you: Pulse Blood pressure Weight 66/minute 121/44 66.7 kg Albin Gu APRN.JASPREET 11/03/2024 10:04 AM Addendum Continue current medications [...] or concern, you can call me at [phone]. Albin Gu APRN.CNP 11/03/2024 10:28 AM [facility] [place] [facility] Heart Failure [facility] OUTPATIENT VISIT DATE November [...] and was worried about traveling home to [place] in a few days. Discussed with her taking lasix as it was prescribed. As her spironolactone was stopped, did advise patient restart this at 25 mg once a day for four days only. She was instructed to call office in a week to review symptoms. On 10/15, patient presented back to [facility] for gastrointestinal bleed. She had a colonoscopy [...] and entresto. The patient wished to leave [place] so she could return to [place]. Cardiology and Pulmonary agreed with discharge. Today, [...] call and discuss this with this HF ATHLETIC AGENT. Wearing lidocaine patch over site to right side of neck as she mentions havi (more content not included)... Normal [facility] 11-03-2024 [facility] Telephone ([facility]) BERTA SANCHES ([id number]) 1945 F [facility] Date Time Provider Department 11/03/24 ALBIN GU [facility] During your visit today, we recorded the following information about you: Albin Gu APRN.JASPREET 11/03/2024 12:49 PM Signed Called patient to [...] agree with plan of care. Albin Gu APRN.JASPREET Allergies As of Date: 11/03/2024 Noted Allergy [...] 02/26/2014 03/21/2022 Intracranial aneurysm [I67.1] 08/30/2015 10/05/2022 [facility] current use of antiarrhythmic medical*10/20/2016 09/12/2021 Prosthetic [...] (HCC) [C64.9] (more content not included)... Normal [facility] CBC W Auto Differential pane l (Bld)on 10-31-2024 Basophils (Bld) [#/Vol] 0.06 10*3/uL [facility] Basophils/100 WBC (Bld) 1 % C [facility] Differential cell count method Nom (Bld) Auto [facility] Eosinophils (Bld) [#/Vol] 0.13 10*3/uL [facility] Eosinophils/100 WBC (Bld) 2.1 % [facility] Erythrocyte distribution width (RBC) [Ratio] 16.8 % High 11.5 - 15.0 % [facility] Hematocrit (Bld) [Volume fraction] 26.3 % Low 36.0 - 46.0 % [facility] Hemoglobin (Bld) [Mass/Vol] 8.7 g/dL Low 11.5 - 15.5 g/dL [facility] Immature granulocytes (Bld) [#/Vol] 0.04 10*3/uL [facility] Immature granulocytes/100 WBC (Bld) 0.6 % [facility] Interpretation and review of laboratory results Abnormal [facility] Lymphocytes (Bld) [#/Vol] 1.29 10*3/uL [facility] Lymphocytes/100 WBC (Bld) 20.6 % [facility] MCH (RBC) [Entitic mass] 31.6 pg 26.0 - 34.0 pg [facility] MCHC (RBC) [Mass/Vol] 33.1 g/dL 30.5 - 36.0 g/dL [facility] MCV (RBC) [Entitic vol] 95.6 fL 80.0 - 100.0 fL [facility] Monocytes (Bld) [#/Vol] 0.82 10*3/uL [facility] Monocytes/100 WBC (Bld) 13.1 % C [facility] Neutrophils (Bld) [#/Vol] 3.92 10*3/uL [facility] Neutrophils/100 WBC (Bld) 62.6 % [facility] Nucleated RBC (Bld) [#/Vol] NINF [facility] Nucleated RBC/100 WBC (Bld) [Ratio] 0 % /100 WBC [facility] Platelet mean volume (Bld) [Entitic vol] 9.5 fL 9.0 - 12.7 fL [facility] Platelets (Bld) [#/Vol] 202 10*3/uL [facility] RBC (Bld) [#/Vol] 2.75 10*6/uL Low 3.90 - 5.2 0 m/uL [facility] WBC (Bld) [#/Vol] 6.26 10*3/uL [facility] Basophils (Bld) [#/Vol] 0.06 10*3/uL Normal <0.11 [facility] Comment on above: Order Comment: Speci men Type: BLOOD SPECIMEN Ordering Facility: [facility] Address: [address] [place] [address] Performed By: #### 2 4331-1 #### [facility] CLIA [id number] [address] [place] [address] [place] [facility] CLIA [id number] [address] [place] [address] [place] #### 19057-8 #### [facility] CLIA [id number] [address] [place] [address] [place] Basophils/100 WBC (Bld) 1.0 % [facility] Comment on above: Order Comment: Speci men Type: BLOOD SPECIMEN Ordering Facility: [facility] Address: [address] [place] [address] Performed By: #### 2 4331-1 #### [facility] CLIA [id number] [address] [place] [address] [place] [facility] CLIA [id number] [address] [place] [address] [place] #### 94343-7 #### [facility] CLIA [id number] [address] [place] [address] [place] Differential cell count method Nom (Bld) Auto Normal [facility] Comment on above: Order Comment: Speci men Type: BLOOD SPECIMEN Ordering Facility: [facility] Address: [address] [place] [address] Performed By: #### 2 4331-1 #### [facility] CLIA [id number] [address] [place] [address] [place] [facility] [id number] [address] [place] [address] [place] #### 25632-6 #### [facility] CLIA [id number] [address] [place] [address] [place] Eosinophils (Bld) [#/Vol] 0.13 10*3/uL Normal <0.46 [facility] Comment on above: Order Comment: Speci men Type: BLOOD SPECIMEN Ordering Facility: [facility] Address: [address] [place] [address] Performed By: #### 2 4331-1 #### [facility] CLIA [id number] [address] [place] [address] [place] [facility] [id number] [address] [place] [address] [place] #### 56515-4 #### [facility] CLIA [id number] [address] [place] [address] [place] Eosinophils/100 WBC (Bld) 2.1 % Normal [facility] Comment on above: Order Comment: Speci men Type: BLOOD SPECIMEN Ordering Facility: [facility] Address: [address] [place] [address] Performed By: #### 2 4331-1 #### [facility] CLIA [id number] [address] [place] [address] [place] [facility] CLIA [id number] [address] [place] [address] [place] #### 16329-7 #### [facility] CLIA [id number] [address] [place] [address] [place] Erythrocyte distribution width (RBC) [Ratio] 16.8 % High 11.5-15.0 [facility] Comment on above: Order Comment: Speci men Type: BLOOD SPECIMEN Ordering Facility: [facility] Address: [address] [place] [address] Performed By: #### 2 4331-1 #### [facility] CLIA [id number] [address] [place] [address] [place] [facility] [id number] [address] [place] [address] [place] #### 44708-3 #### [facility] CLIA [id number] [address] [place] [address] [place] Hematocrit (Bld) [Volume fraction] 26.3 % Low 36.0-46.0 [facility] Comment on above: Order Comment: Speci men Type: BLOOD SPECIMEN Ordering Facility: [facility] Address: [address] [place] [address] Performed By: #### 2 4331-1 #### [facility] CLIA [id number] [address] [place] [address] [place] [facility] [id number] [address] [place] [address] [place] #### 82648-5 #### [facility] CLIA [id number] [address] [place] [address] [place] Hemoglobin (Bld) [Mass/Vol] 8.7 g/dL Low 11.5-15.5 [facility] Comment on above: Order Comment: Speci men Type: BLOOD SPECIMEN Ordering Facility: [facility] Address: [address] [place] [address] Performed By: #### 2 4331-1 #### [facility] CLIA [id number] [address] [place] [address] [place] [facility] CLIA [id number] [address] [place] [address] [place] #### 86355-1 #### [facility] CLIA [id number] [address] [place] [address] [place] Immature granulocytes (Bld) [#/Vol] 0.04 10*3/uL Normal <0.10 [facility] Comment on above: Order Comment: Speci men Type: BLOOD SPECIMEN Ordering Facility: [facility] Address: [address] [place] [address] Performed By: #### 2 4331-1 #### [facility] CLIA [id number] [address] [place] [address] [place] [facility] CLIA [id number] [address] [place] [address] [place] #### 74317-2 #### [facility] CLIA [id number] [address] [place] [address] [place] Immature granulocytes/100 WBC (Bld) 0.6 % Normal [facility] Comment on above: Order Comment: Speci men Type: BLOOD SPECIMEN Ordering Facility: [facility] Address: [address] [place] [address] Performed By: #### 2 4331-1 #### [facility] CLIA [id number] [address] [place] [address] [place] [facility] CLIA [id number] [address] [place] [address] [place] #### 53257-1 #### [facility] CLIA [id number] [address] [place] [address] [place] Lymphocytes (Bld) [#/Vol] 1.29 10*3/uL Normal 1.00-4.00 [facility] Comment on above: Order Comment: Speci men Type: BLOOD SPECIMEN Ordering Facility: [facility] Address: [address] [place] [address] Performed By: #### 2 4331-1 #### [facility] CLIA [id number] [address] [place] [address] [place] [facility] [id number] [address] [place] [address] [place] #### 90084-6 #### [facility] CLIA [id number] [address] [place] [address] [place] Lymphocytes/100 WBC (Bld) 20.6 % Normal [facility] Comment on above: Order Comment: Speci men Type: BLOOD SPECIMEN Ordering Facility: [facility] Address: [address] [place] [address] Performed By: #### 2 4331-1 #### [facility] CLIA [id number] [address] [place] [address] [place] [facility] CLIA [id number] [address] [place] [address] [place] #### 42156-6 #### [facility] CLIA [id number] [address] [place] [address] [place] MCH (RBC) [Entitic mass] 31.6 pg Normal 26.0-34.0 [facility] Comment on above: Order Comment: Speci men Type: BLOOD SPECIMEN Ordering Facility: [facility] Address: [address] [place] [address] Performed By: #### 2 4331-1 #### [facility] CLIA [id number] [address] [place] [address] [place] [facility] CLIA [id number] [address] [place] [address] [place] #### 57868-3 #### [facility] CLIA [id number] [address] [place] [address] [place] MCHC (RBC) [Mass/Vol] 33.1 g/dL Normal 30.5-36.0 [facility] Comment on above: Order Comment: Speci men Type: BLOOD SPECIMEN Ordering Facility: [facility] Address: [address] [place] [address] Performed By: #### 2 4331-1 #### [facility] CLIA [id number] [address] [place] [address] [place] [facility] CLIA [id number] [address] [place] [address] [place] #### 64302-2 #### [facility] CLIA [id number] [address] [place] [address] [place] MCV (RBC) [Entitic vol] 95.6 fL Normal 80.0-100.0 C [facility] Comment on above: Order Comment: Speci men Type: BLOOD SPECIMEN Ordering Facility: [facility] Address: [address] [place] [id number] Performed By: #### 2 4331-1 #### [facility] CLIA [id number] [address] [place] [address] [place] [facility] CLIA [id number] [address] [place] [address] [place] #### 38718-1 #### [facility] CLIA [id number] [address] [place] [id number] [place] Monocytes (Bld) [#/Vol] 0.82 10*3/uL Normal <0.87 [facility] Comment on above: Order Comment: Speci men Type: BLOOD SPECIMEN Ordering Facility: [facility] Address: [address] [place] [address] Performed By: #### 2 4331-1 #### [facility] CLIA [id number] [address] [place] [address] [place] [facility] [id number] [place] [address] [place] #### 78092-5 #### [facility] CLIA [id number] [address] [place] [address] [place] Monocytes/100 WBC (Bld) 13.1 % Normal [facility] Comment on above: Order Comment: Speci men Type: BLOOD SPECIMEN Ordering Facility: [facility] Address: [address] [place] [address] Performed By: #### 2 4331-1 #### [facility] CLIA [id number] [address] [place] [address] [place] [facility] [id number] [place] [address] [place] #### 46354-6 #### [facility] CLIA [id number] [address] [place] [address] [place] Neutrophils (Bld) [#/Vol] 3.92 10*3/uL Normal 1.45-7.50 [facility] Comment on above: Order Comment: Speci men Type: BLOOD SPECIMEN Ordering Facility: [facility] Address: [address] [place] [address] Performed By: #### 2 4331-1 #### [facility] CLIA [id number] [facility] [place] [id number] [place] [facility] CLIA [id number] [address] [place] [address] [place] #### 70751-8 #### [facility] CLIA [id number] [address] [place] [address] [place] Neutrophils/100 WBC (Bld) 62.6 % Normal [facility] Comment on above: Order Comment: Speci men Type: BLOOD SPECIMEN Ordering Facility: [facility] Address: [address] [place] [address] Performed By: #### 2 4331-1 #### [facility] CLIA [id number] [address] [place] [address] [place] [facility] CLIA [id number] [address] [place] [address] [place] #### 24427-5 #### [facility] CLIA [id number] [address] [place] [address] [place] Nucleated RBC (Bld) [#/Vol] 10*3/uL Normal <0.01 [facility] Comment on above: Order Comment: Speci men Type: BLOOD SPECIMEN Ordering Facility: [facility] Address: [address] [place] [address] Performed By: #### 2 4331-1 #### [facility] CLIA [id number] [address] [place] [address] [place] [facility] CLIA [id number] [address] [place] [address] [place] #### 62294-2 #### [facility] CLIA [id number] [address] [place] [address] [place] Nucleated RBC/100 WBC (Bld) [Ratio] 0.0 /[address] [facility] Comment on above: Order Comment: Speci men Type: BLOOD SPECIMEN Ordering Facility: [facility] Address: [address] [place] [address] Performed By: #### 2 4331-1 #### [facility] CLIA [id number] [address] [place] [address] [place] [facility] CLIA [id number] [address] [place] [address] [place] #### 20511-0 #### [facility] CLIA [id number] [address] [place] [address] [place] Platelet mean volume (Bld) [Entitic vol] 9.5 fL Normal 9.0-12.7 [facility] Comment on above: Order Comment: Speci men Type: BLOOD SPECIMEN Ordering Facility: [facility] Address: [address] [place] [address] Performed By: #### 2 4331-1 #### [facility] CLIA [id number] [address] [place] [address] [place] [facility] CLIA [id number] [address] [place] [address] [place] #### 34444-3 #### [facility] CLIA [id number] [address] [place] [address] [place] Platelets (Bld) [#/Vol] 202 10*3/uL Normal 150-400 [facility] Comment on above: Order Comment: Speci men Type: BLOOD SPECIMEN Ordering Facility: [facility] Address: [address] [place] [address] Performed By: #### 2 4331-1 #### [facility] CLIA [id number] [address] [place] [address] [place] [facility] CLIA [id number] [address] [place] [address] [place] #### 08089-1 #### [facility] CLIA [id number] [address] [place] [address] [place] RBC (Bld) [#/Vol] 2.75 10*6/uL Low 3.90-5.20 [facility] Comment on above: Order Comment: Speci men Type: BLOOD SPECIMEN Ordering Facility: [facility] Address: [address] [place] [address] Performed By: #### 2 4331-1 #### [facility] CLIA [id number] [address] [place] [address] [place] [facility] [id number] [address] [place] [address] [place] #### 08006-5 #### [facility] CLIA [id number] [address] [place] [address] [place] WBC (Bld) [#/Vol] 6.26 10*3/uL Normal 3.70-11.00 [facility] Comment on above: Order Comment: Speci men Type: BLOOD SPECIMEN Ordering Facility: [facility] Address: [address] [place] [address] Performed By: #### 2 4331-1 #### [facility] CLIA [id number] [address] [place] [address] [place] [facility] CLIA [id number] [address] [place] [address] [place] #### 82477-8 #### [facility] CLIA [id number] [address] [place] [address] [place] CNOVon 10-31-2024 CNOV Office Visit ([facility] ) BERTA SANCHES ([id number]) 1945 F [place] Date Time Provider Department 10/31/24 11:00 AM SHAYE DOMINGO During your visit today, we recorded the following information about you: Pulse Blood pressure Weight 84/minute 147/68 64.4 kg Shaye Domingo, ATHLETIC AGENT.SCRAP CHARGER 10/31/2024 12:52 PM Signed Chief Complaint Patient presents with: Hospital F/U [facility] Berta Sanches is a 79 year old female who presents here today for Above Complaints.. Acute Mesenteric Ischemia: - Initially admitted to [facility] on 10/02/2024. - Underwent femoral ultrasound-guided angiogram with angioplasty and stenting of the SMA. - Required CRRT for MONIQUE post-op. - Developed AFib with RVR post-op. - Discharged after 23-day hospitalization. Acute on Chronic Heart Failure: - Given IV Lasix during initial admission. 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 Lua PACEMAKER 10/2019 PART. HYSTERECTOMY W/WO RMVL OVARIES/TUBES 1974 h/o cervical cancer ovaries remain PAST SURGICAL HISTORY OF 1996 Aortic valve repair, Dr. Apodaca PAST SURGICAL HISTORY OF 2001 [address] Beltrán, [facility] PAST SURGICAL HISTORY OF 2016 clipping [...] mcg epi (more content not included)... Normal [facility] metabolic 2000 panelOrdered By: Shala Segura on 10-31-2024 Albumin [Mass/Vol] 4 g/dL 3.9 - 4.9 g/dL [facility] ALP [Catalytic activity/Vol] 81 U/L 34 - 123 U/L [facility] ALT [Catalytic activity/Vol] 10 U/L 7 - 38 U/L [facility] Anion gap [Moles/Vol] 11 mmol/L 8 - 15 mmol/L [facility] AST [Catalytic activity/Vol] 19 U/L 13 - 35 U/L [facility] Bilirubin [Mass/Vol] 1 mg/dL 0.2 - 1 .3 mg/dL [facility] Calcium [Mass/Vol] 9.3 mg/dL 8.5 - 10. 2 mg/dL [facility] Chloride [Moles/Vol] 83 mmol/L Low 98 - 10 7 mmol/L [facility] CO2 [Moles/Vol] 29 mmol/L 22 - 30 mmol/L [facility] Creatinine [Mass/Vol] 2.5 mg/dL High 0.58 - 0.96 mg/dL [facility] GFR/1.73 sq M.predicted among non-blacks MDRD (S/P/Bld) [Vol rate/Area] 19 mL/min/{1.73_m2} Low - PINF [facility] Comment on above: Estimated Glomerular Filtration Rate [...] 138 mg/dL High 74 - 99 mg/dL [facility] Comment on above: The [place] Di[employer] Association (ADA) provides guidance for [...] Standards of Medical Care in Diabetes 2016, [place] [employer]. Diabetes Care. 2016.39(Suppl 1). Interpretation and review of laboratory results Abnormal [facility] Potassium [Moles/Vol] 3.8 mmol/L 3.7 - 5.1 mmol/L [facility] Protein [Mass/Vol] 7 g/dL 6.3 - 8.0 g/dL [facility] Sodium [Moles/Vol] 123 mmol/L Low 136 - 144 mmol/L [facility] Urea nitrogen [Mass/Vol] 53 mg/dL High 7 - 21 mg/dL [facility] Comprehensive metabolic 2000 panelon 10-31-2024 Albumin [Mass/Vol] 4.0 g/dL Normal 3.9-4.9 [facility] Comment on above: Order Comment: Annie ricci Type: BLOOD SPECIMEN Ordering Facility: [facility] Address: [address] [place] [address] Performed By: #### 3 3762-6 #### [facility] CLIA [id number] [address] [place] [address] [place] ALP [Catalytic activity/Vol] 81 U/L Normal 34-123 [facility] Comment on above: Order Comment: Annie ricci Type: BLOOD SPECIMEN Ordering Facility: [facility] Address: [address] [place] [address] Performed By: #### 3 3762-6 #### [facility] CLIA [id number] [address] [id number] [place] ALT [Catalytic activity/Vol] 10 U/L Normal 7-38 [facility] Comment on above: Order Comment: Speci men Type: BLOOD SPECIMEN Ordering Facility: [facility] Address: [address] [place], [place] [address] Performed By: #### 3 3762-6 #### [facility] CLIA [id number] [address] [place], [place] [address] [place] Anion gap [Moles/Vol] 11 mmol/L Normal 8-15 [facility] Comment on above: Order Comment: Speci men Type: BLOOD SPECIMEN Ordering Facility: [facility] Address: [address] [place] [address] Performed By: #### 3 3762-6 #### [facility] CLIA [id number] [address] [place] [address] [place] AST [Catalytic activity/Vol] 19 U/L Normal 13-35 [facility] Comment on above: Order Comment: Speci men Type: BLOOD SPECIMEN Ordering Facility: [facility] Address: [address] [place], [place] [address] Performed By: #### 3 3762-6 #### [facility] CLIA [id number] [address] [place], [place] [address] [place] Bilirubin [Mass/Vol] 1.0 mg/dL Normal 0.2-1.3 [facility] Comment on above: Order Comment: Speci men Type: BLOOD SPECIMEN Ordering Facility: [facility] Address: [address] [place], [place] [address] Performed By: #### 3 3762-6 #### [facility] CLIA [id number] [address] [place], [place] [address] [place] Calcium [Mass/Vol] 9.3 mg/dL Normal 8.5-10.2 [facility] Comment on above: Order Comment: Speci men Type: BLOOD SPECIMEN Ordering Facility: [facility] Address: [address] [place] [address] Performed By: #### 3 3762-6 #### [facility] CLIA [id number] [address] [place] [address] [place] Chloride [Moles/Vol] 83 mmol/L Low 98-107 [facility] Comment on above: Order Comment: Speci men Type: BLOOD SPECIMEN Ordering Facility: [facility] Address: [address] [place] [address] Performed By: #### 3 3762-6 #### [facility] CLIA [id number] [address] [place] [address] [place] CO2 [Moles/Vol] 29 mmol/L Normal 22-30 [facility] Comment on above: Order Comment: Speci men Type: BLOOD SPECIMEN Ordering Facility: [facility] Address: [address] [place] [address] Performed By: #### 3 3762-6 #### [facility] CLIA [id number] [address] [place] [address] [place] Creatinine [Mass/Vol] 2.50 mg/dL High 0.58-0.96 [facility] Comment on above: Order Comment: Speci men Type: BLOOD SPECIMEN Ordering Facility: [facility] Address: [address] [place] [address] Performed By: #### 3 3762-6 #### [facility] CLIA [id number] [address] [place] [address] [place] Creatinine and Glomerular filtration rate.predicted panel (S/P/Bld) 19 mL/min/1.73m??? Low >=60 [facility] Comment on above: Order Comment: Speci men Type: BLOOD SPECIMEN Ordering Facility: [facility] Address: [address] [place] [address] Result Comment: Mira mated Glomerular Filtration Rate [...] GFR. Performed By: #### 3 3762-6 #### [facility] CLIA [id number] [address] [place] [address] [place] Glucose [Mass/Vol] 138 mg/dL High 74-99 [facility] Comment on above: Order Comment: Annie ricci Type: BLOOD SPECIMEN Ordering Facility: [facility] Address: [address] [place] [address] Result Comment: The [place] Diabetes Association (ADA) provides guidance for cutoff [...] Standards of Medical Care in Diabetes 2016, [place] Diabetes Association. Diabetes Care. 2016.39(Suppl 1). Performed By: #### 3 3762-6 #### [facility] CLIA [id number] [address] [place] [address] [place] Potassium [Moles/Vol] 3.8 mmol/L Normal 3.7-5.1 [facility] Comment on above: Order Comment: Annie ricci Type: BLOOD SPECIMEN Ordering Facility: [facility] Address: [address] [place] [address] Performed By: #### 3 3762-6 #### [facility] CLIA [id number] [address] [place] [address] [place] Protein [Mass/Vol] 7.0 g/dL Normal 6.3-8.0 [facility] Comment on above: Order Comment: Speci men Type: BLOOD SPECIMEN Ordering Facility: [facility] Address: [address] [place] [address] Performed By: #### 3 3762-6 #### [facility] CLIA [id number] [address] [place] [address] [place] Sodium [Moles/Vol] 123 mmol/L Low 136-144 [facility] Comment on above: Order Comment: Speci men Type: BLOOD SPECIMEN Ordering Facility: [facility] Address: [address] [place] [address] Performed By: #### 3 3762-6 #### [facility] CLIA [id number] [address] [place] [address] [place] Urea nitrogen [Mass/Vol] 53 mg/dL High 7-21 [facility] Comment on above: Order Comment: Speci men Type: BLOOD SPECIMEN Ordering Facility: [facility] Address: [address] [place] [address] Performed By: #### 3 3762-6 #### [facility] CLIA [id number] [address] [place] [address] [place] MAGNESIUMon 10-31-2024 Magnesium [Mass/Vol] 2 mg/dL 1.7 - 2 .3 mg/dL [facility] Magnesium SerPl-mCncon 10-31 Magnesium [Mass/Vol] 2.0 mg/dL Normal 1.7-2.3 [facility] Comment on above: Order Comment: Speci men Type: BLOOD SPECIMEN Ordering Facility: [facility] Address: [address] [place], [place] [address] Performed By: #### 2 4331-1 #### [facility] CLIA [id number] [address] [address] [place] [facility] CLIA [id number] [address] [place], [place] [id number] [place] #### 92135-4 #### [facility] CLIA [id number] [address] [place] [address] [place] Magnesium [Mass/Vol]on 10-31 Interpretation and review of laboratory results Normal [facility] No Panel InformationOrdered By: Shala Segura on 10-31-2024 [facility] Connie [facility] BERTA SANCHES ([id number]) 1945 [facility] Date Time Provider Department 10/12/24 ALBIN GU [facility] During your visit today, we recorded the [...] 02/26/2014 03/21/2022 Intracranial aneurysm [I67.1] 08/30/2015 10/05/2022 emt intermediate current use of antiarrhythmic medical*10/20/2016 09/12/2021 Prosthetic [...] fistula [N32.1] 06/15/2019 (more content not included)... [facility] BERTA SANCHES ([id number]) 1945 [place] Date Time Provider Department 07/31/24 MELIDA KOO [facility] During your visit today, we recorded the following information about you: Melida Koo APRN.SCRAP CHARGER 07/31/2024 12:00 PM Signed Pt called to request refill for KDur as she has run out of prescription. She states that she is currently in [place] and will be in [place] until October. [facility] called in [place], [place]. Spoke with Pharmacist on duty. Rx for KDur 10 meq PO daily given verbally #90 with no refills. Melida Koo APRN.SCRAP CHARGER Allergies As of Date: 07/31/2024 Noted Allergy [...] 02/26/2014 03/21/2022 Intracranial aneurysm [I67.1] 08/30/2015 10/05/2022 emt intermediate current use of antiarrhythmic medical*10/20/2016 09/12/2021 Prosthetic [...] for sup (more content not included)... Normal [facility] 25(OH)D3 [facility] 25-hydroxyvitamin D3 [Mass/Vol] 41.9 ng/mL Normal 31.0-80.0 [facility] Comment on above: Order Comment: Speci men Type: BLOOD SPECIMEN Ordering Facility: [facility] Address: [address] [place] [address] Result Comment: Clas sification of 25 OH Vitamin D status: Deficiency/Insufficiency: < or = 30 ng/ml. Sufficiency/Optimal Levels: 31-80 ng/mL Toxicity: > 100 ng/mL. Test performed by chemiluminescent immunoassay. Performed By: #### 2 4331-1 #### [facility] CLIA [id number] [address] [place] [address] [place] [facility] [address] [place] [address] [place] #### 18203-3 #### [facility] CLIA [id number] [address] [place] [address] [place] ALBUMIN/CREATININE RATIO, INEon 07-07-2024 Albumin DL <= 20 mg/L (U) [Mass/Vol] 21.0 mg/L Normal [facility] Comment on above: Order Comment: Speci men Type: BLOOD SPECIMEN Ordering Facility: [facility] Address: [address] [place] [address] Performed By: #### 2 4331-1 #### [facility] CLIA [id number] [address] [place] [address] [place] [facility] CLIA [id number] [place] [address] [place] #### 06166-5 #### [facility] CLIA [id number] [address] [place] [address] [place] Albumin/Creatinine (U) [Mass ratio] 34 mg/g High <30 [facility] Comment on above: Order Comment: Speci men Type: BLOOD SPECIMEN Ordering Facility: [facility] Address: [address] [place] [address] Result Comment: Adul t Male and Female Nephrotic Criteria: <30 mg/g is considered normal to mildly increased 30-300 mg/g is considered moderately increased >300 mg/g is considered severely increased KDIGO. (2013). KDIGO 2012 Clinical Practice Guideline for the Evaluation and Management of Chronic Kidney Disease. Official Journal of the International Society of Nephrology, 3(1), 1-150. Performed By: #### 2 4331-1 #### [facility] CLIA [id number] [address] [place] [address] [place] [facility] CLIA [id number] [address] [place] [address] [place] #### 33032-9 #### [facility] CLIA [id number] [address] [place] [address] [place] Creatinine (U) [Mass/Vol] 61.6 mg/dL Normal 20.0-300.0 [facility] Comment on above: Order Comment: Speci men Type: BLOOD SPECIMEN Ordering Facility: [facility] Address: [address] [place] [address] Performed By: #### 2 4331-1 #### [facility] CLIA [id number] [address] [place] [address] [place] [facility] CLIA [id number] [address] [place] [address] [place] #### 69038-9 #### [facility] CLIA [id number] [address] [place] [address] [place] Basic metabolic 2000 panelon 07-07-2024 Anion gap [Moles/Vol] 13 mmol/L Normal 8-15 [facility] Comment on above: Order Comment: Speci men Type: BLOOD SPECIMEN Ordering Facility: [facility] Address: [address] [place], [place] [address] Performed By: #### 3 3762-6 #### [facility] CLIA [id number] [address] [place] [address] [place] Calcium [Mass/Vol] 9.8 mg/dL Normal 8.5-10.2 [facility] Comment on above: Order Comment: Speci men Type: BLOOD SPECIMEN Ordering Facility: [facility] Address: [address] [place] [address] Performed By: #### 3 3762-6 #### [facility] CLIA [id number] [address] [place] [address] [place] Chloride [Moles/Vol] 100 mmol/L Normal 98-107 [facility] Comment on above: Order Comment: Speci men Type: BLOOD SPECIMEN Ordering Facility: [facility] Address: [address] [place] [address] Performed By: #### 3 3762-6 #### [facility] CLIA [id number] [address] [place] [address] [place] CO2 [Moles/Vol] 25 mmol/L Normal 22-30 [facility] Comment on above: Order Comment: Speci men Type: BLOOD SPECIMEN Ordering Facility: [facility] Address: [address] [place], [place] [address] Performed By: #### 3 3762-6 #### [facility] CLIA [id number] [address] [place], [place] [address] [place] Creatinine [Mass/Vol] 1.12 mg/dL High 0.58-0.96 [facility] Comment on above: Order Comment: Speci men Type: BLOOD SPECIMEN Ordering Facility: [facility] Address: [address] [place], [place] [address] Performed By: #### 3 3762-6 #### [facility] CLIA [id number] [address] [place] [address] [place] Creatinine and Glomerular filtration rate.predicted panel (S/P/Bld) 50 mL/min/1.73m??? Low >=60 [facility] Comment on above: Order Comment: Annie ricci Type: BLOOD SPECIMEN Ordering Facility: [facility] Address: [address] [place] [address] Result Comment: Mira mated Glomerular Filtration Rate [...] GFR. Performed By: #### 3 3762-6 #### [facility] CLIA [id number] [address] [place] [address] [place] Glucose [Mass/Vol] 118 mg/dL High 74-99 [facility] Comment on above: Order Comment: Annie ricci Type: BLOOD SPECIMEN Ordering Facility: [facility] Address: [address] [place] [address] Result Comment: The [place] Diabetes Association (ADA) provides guidance for cutoff [...] Standards of Medical Care in Diabetes 2016, [place] Diabetes Association. Diabetes Care. 2016.39(Suppl 1). Performed By: #### 3 3762-6 #### [facility] CLIA [id number] [address] [place] [address] [place] Potassium [Moles/Vol] 4.4 mmol/L Normal 3.7-5.1 [facility] Comment on above: Order Comment: Speci men Type: BLOOD SPECIMEN Ordering Facility: [facility] Address: [address] [place] [address] Performed By: #### 3 3762-6 #### [facility] CLIA [id number] [address] [place] [address] [place] Sodium [Moles/Vol] 138 mmol/L Normal 136-144 [facility] Comment on above: Order Comment: Speci men Type: BLOOD SPECIMEN Ordering Facility: [facility] Address: [address] [place] [address] Performed By: #### 3 3762-6 #### [facility] CLIA [id number] [address] [place] [address] [place] Urea nitrogen [Mass/Vol] 34 mg/dL High 7-21 [facility] Comment on above: Order Comment: Speci men Type: BLOOD SPECIMEN Ordering Facility: [facility] Address: [address] [place] [address] Performed By: #### 3 3762-6 #### [facility] CLIA [id number] [address] [place] [address] [place] CNOVon 07-07-2024 CNOV Office Visit ([facility] ) BERTA SANCHES ([id number]) 1945 F [place] Date Time Provider Department 07/07/24 8:00 AM DEYSI COLLAZO During your visit today, we recorded the following information about you: Pulse Respiration Blood pressure Weight 69/minute 16/minute 136/70 63.5 kg Deysi Collazo APRN.SCRAP CHARGER 07/07/2024 12:41 PM Signed This is a 78 year old female who presents today with: Patient presents with: Establish Care HISTORY OF PRESENT ILLNESS: Berta Sanches is a 78 year old female. Patient presents with: Establish Care Pt presents today to [facility]. HTN: Patient is compliant with meds Yes. 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 Lua PACEMAKER 10/2019 PART. HYSTERECTOMY W/WO RMVL OVARIES/TUBES 1973 h/o cervical cancer ovaries remain PAST SURGICAL HISTORY OF 1996 Aortic valve repair, Dr. Apodaca PAST SURGICAL HISTORY OF 2001 [address] Beltrán, [facility] PAST SURGICAL HISTORY OF 2015 clipping [...] once daily. (more content not included)... Normal [facility] HbA1c (Bld)on 07-07-2024 Average glucose Estimated from glycated hemoglobin (Bld) [Mass/Vol] 151 mg/dL Normal [facility] Comment on above: Order Comment: Annie ricci Type: BLOOD SPECIMEN Ordering Facility: [facility] Address: [address] [place] [address] Result Comment: eAG: (Estimated average glucose) is a calculated value from HgbA1c and is sales representative electric service of the average blood glucose level in the last 2-3 month period. Performed By: #### 3 3762-6 #### [facility] CLIA [id number] [address] [place] [address] [place] [facility] HbA1c (Bld) [Mass fraction] 6.9 % High 4.3-5.6 [facility] Comment on above: Order Comment: Annie ricci Type: BLOOD SPECIMEN Ordering Facility: [facility] Address: [address] [place] [address] Result Comment: Amer [place] Diabetes Association guidelines indicate that patients with HgbA1c in the range 5.7-6.4% are at increased risk for development of diabetes, and intervention by lifestyle modification may be beneficial. HgbA1c greater or equal to 6.5% is considered diagnostic of diabetes. Performed By: #### 3 3762-6 #### [facility] CLIA [id number] [address] [place] [address] [place] TSH SerPl-aCncon 07-07-2024 TSH Qn 2.650 m[IU]/L Normal 0.270-4.200 [facility] Comment on above: Order Comment: Annie ricci Type: BLOOD SPECIMEN Ordering Facility: [facility] Address: [address] [place] [address] Performed By: #### 3 3762-6 #### [facility] CLIA [id number] [address] [place] [address] [place] CNOVon 04-07-2024 [facility] Office Visit ([facility] ) BERTA SANCHES ([id number]) 1945 [facility] Date Time Provider Department 04/07/24 9:00 AM ALBIN GU [facility] During your visit today, we recorded the following information about you: Pulse Blood pressure Weight 91/minute 142/47 62.1 kg Albin Gu APRN.SCRAP CHARGER 04/07/2024 9:57 AM Signed [facility] [place] [facility] OUTPATIENT VISIT DATE April 07, 2024 OUTPATIENT VISIT TYPE ESTABLISHED PRIMARY CARE PHYSICIAN: Gerard Le PA-C CHIEF COMPLAINT: Patient presents with: [...] a boat and take it out on [place] to fish. IMPRESSION: NYHA Functional Class: II [...] moderate car (more content not included)... Normal [facility] BERTA SANCHES ([id number]) 1945 [place] Date Time Provider Department 02/21/24 MELIDA KOO [facility] During your visit today, we recorded the [...] understanding of plan of care. Melida Koo APRN.SCRAP CHARGER Allergies As of Date: 02/21/2024 Noted Allergy [...] 02/26/2014 03/21/2022 Intracranial aneurysm [I67.1] 08/30/2015 10/05/2022 emt intermediate current use of antiarrhythmic medical*10/20/2016 09/12/2021 Prosthetic [...] due t (more content not included)... Normal [facility] NT-proBNP [facility] 02-14 Natriuretic peptide.B prohormone N-Terminal [Mass/Vol] 5922 pg/mL High <450 [facility] Comment on above: Order Comment: Speci men Type: BLOOD SPECIMEN Ordering Facility: [facility] Address: [address] [place] [address] Performed By: #### 3 3762-6 #### [facility] CLIA [id number] [address] [place] [address] STATES [place] [facility] CNPNon 02-07-2024 [facility] BERTA SANCHES ([id number]) 1945 [facility] Date Time Provider Department 02/07/24 MELIDA KOO [facility] During your visit today, we recorded the following information about you: Melida Koo APRN.SCRAP CHARGER 02/07/2024 8:28 AM Signed Pt called and left message on voicemail stating that she was feeling much better since following instructions that Albin Gu had given her. She reported that SOB and edema was improved. She has concerns about NTpBNP and when she should have that rechecked. Called patient and she did not answer. Message left for call back. Melida Koo APRN.SCRAP CHARGER Allergies As of Date: 02/07/2024 Noted Allergy [...] 02/26/2014 03/21/2022 Intracranial aneurysm [I67.1] 08/30/2015 10/05/2022 [facility] current use of antiarrhythmic medical*10/20/2016 09/12/2021 Prosthetic [...] and diastoli*09/19/2020 05 (more content not included)... [facility] 02-04-2024 [facility] Telephone ([facility]) BERTA SANCHES ([id number]) 1945 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 [facility] BERTA SANCHES ([id number]) 1945 [address] [facility] Date Time Provider Department 02/04/24 ALBIN GU [facility] During your visit today, we recorded the [...] 02/26/2014 03/21/2022 Intracranial aneurysm [I67.1] 08/30/2015 10/05/2022 [facility] current use of antiarrhythmic medical*10/20/2016 09/12/2021 Prosthetic [...] blood loss (more content not included)... Normal [facility] Comprehensive metabolic 2000 panelon 02-03-2024 Albumin [Mass/Vol] 4.0 g/dL Normal 3.9-4.9 [facility] Comment on above: Order Comment: Speci men Type: BLOOD SPECIMEN Ordering Facility: [facility] Address: [address] [place] [address] Performed By: #### 3 3762-6 #### [facility] CLIA [id number] [address] [place] [address] [place] ALP [Catalytic activity/Vol] 102 U/L Normal 34-123 [facility] Comment on above: Order Comment: Speci men Type: BLOOD SPECIMEN Ordering Facility: [facility] Address: [address] [place] [address] Performed By: #### 3 3762-6 #### [facility] CLIA [id number] [address] [place] [address] [place] ALT [Catalytic activity/Vol] 10 U/L Normal 7-38 [facility] Comment on above: Order Comment: Speci men Type: BLOOD SPECIMEN Ordering Facility: [facility] Address: [address] [place] [address] Performed By: #### 3 3762-6 #### [facility] CLIA [id number] [address] [place], [place] [address] [place] Anion gap [Moles/Vol] 11 mmol/L Normal 8-15 [facility] Comment on above: Order Comment: Speci men Type: BLOOD SPECIMEN Ordering Facility: [facility] Address: [address] [place] [address] Performed By: #### 3 3762-6 #### [facility] CLIA [id number] [address] [place] [address] [place] AST [Catalytic activity/Vol] 16 U/L Normal 13-35 [facility] Comment on above: Order Comment: Speci men Type: BLOOD SPECIMEN Ordering Facility: [facility] Address: [address] [place] [address] Performed By: #### 3 3762-6 #### [facility] CLIA [id number] [address] [place] [address] [place] Bilirubin [Mass/Vol] 1.1 mg/dL Normal 0.2-1.3 [facility] Comment on above: Order Comment: Speci men Type: BLOOD SPECIMEN Ordering Facility: [facility] Address: [address] [place] [address] Performed By: #### 3 3762-6 #### [facility] CLIA [id number] [address] [place] [address] [place] Calcium [Mass/Vol] 9.5 mg/dL Normal 8.5-10.2 [facility] Comment on above: Order Comment: Speci men Type: BLOOD SPECIMEN Ordering Facility: [facility] Address: [address] [place] [address] Performed By: #### 3 3762-6 #### [facility] CLIA [id number] [address] [place] [address] [place] Chloride [Moles/Vol] 98 mmol/L Normal 98-107 [facility] Comment on above: Order Comment: Speci men Type: BLOOD SPECIMEN Ordering Facility: [facility] Address: [address] [place] [address] Performed By: #### 3 3762-6 #### [facility] CLIA [id number] [address] [place] [address] [place] CO2 [Moles/Vol] 22 mmol/L Normal 22-30 [facility] Comment on above: Order Comment: Speci men Type: BLOOD SPECIMEN Ordering Facility: [facility] Address: [address] [place] [address] Performed By: #### 3 3762-6 #### [facility] CLIA [id number] [address] [place] [address] [place] Creatinine [Mass/Vol] 1.28 mg/dL High 0.58-0.96 [facility] Comment on above: Order Comment: Annie men Type: BLOOD SPECIMEN Ordering Facility: [facility] Address: [address] [place] [address] Performed By: #### 3 3762-6 #### [facility] CLIA [id number] [address] [place] [address] [place] Creatinine and Glomerular filtration rate.predicted panel (S/P/Bld) 43 mL/min/1.73m??? Low >=60 [facility] Comment on above: Order Comment: Annie ricci Type: BLOOD SPECIMEN Ordering Facility: [facility] Address: [address] [place] [address] Result Comment: Mira mated Glomerular Filtration Rate [...] GFR. Performed By: #### 3 3762-6 #### [facility] CLIA [id number] [address] [place] [address] [place] Glucose [Mass/Vol] 147 mg/dL High 74-99 [facility] Comment on above: Order Comment: Annie keiry Type: BLOOD SPECIMEN Ordering Facility: [facility] Address: [address] [place] [address] Result Comment: The [place] Diabetes Association (ADA) provides guidance for cutoff [...] Standards of Medical Care in Diabetes 2016, [place] Diabetes Association. Diabetes Care. 2016.39(Suppl 1). Performed By: #### 3 3762-6 #### [facility] CLIA [id number] [address] [place] [address] [place] Potassium [Moles/Vol] 4.8 mmol/L Normal 3.7-5.1 [facility] Comment on above: Order Comment: Annie ricci Type: BLOOD SPECIMEN Ordering Facility: [facility] Address: [address] [place] [address] Performed By: #### 3 3762-6 #### [facility] CLIA [id number] [address] [place] [address] [place] Protein [Mass/Vol] 7.2 g/dL Normal 6.3-8.0 [facility] Comment on above: Order Comment: Annie ricci Type: BLOOD SPECIMEN Ordering Facility: [facility] Address: [address] [place] [address] Performed By: #### 3 3762-6 #### [facility] CLIA [id number] [address] [place] [address] [place] Sodium [Moles/Vol] 131 mmol/L Low 136-144 [facility] Comment on above: Order Comment: Annie ricci Type: BLOOD SPECIMEN Ordering Facility: [facility] Address: [address] [place] [address] Performed By: #### 3 3762-6 #### [facility] CLIA [id number] [address] [place] [address] [place] Urea nitrogen [Mass/Vol] 34 mg/dL High 7-21 [facility] Comment on above: Order Comment: Speci men Type: BLOOD SPECIMEN Ordering Facility: [facility] Address: [address] [place] [address] Performed By: #### 3 3762-6 #### [facility] CLIA [id number] [address] [place] [address] [place] Lipid 1996 panelon 4 Cholesterol [Mass/Vol] 98 mg/dL Normal <200 [facility] Comment on above: Order Comment: Speci men Type: BLOOD SPECIMEN Ordering Facility: [facility] Address: [address] [place] [address] Result Comment: <200 mg/dL, Desirable 200-239 mg/dL, Borderline high >239 mg/dL, High Performed By: #### 2 4331-1 #### [facility] CLIA [id number] [address] [place] [address] [place] [facility] CLIA [id number] [address] [place] [address] [place] #### 82008-5 #### [facility] CLIA [id number] [address] [place] [address] [place] Cholesterol in HDL [Mass/Vol] 34 mg/dL Low >39 [facility] Comment on above: Order Comment: Speci men Type: BLOOD SPECIMEN Ordering Facility: [facility] Address: [address] [place] [address] Result Comment: 40-5 9 mg/dL, Acceptable >59 mg/dL, High: Negative risk factor for coronary heart disease <40 mg/dL, Low: Positive risk factor for coronary heart disease Performed By: #### 2 4331-1 #### [facility] CLIA [id number] [address] [place] [address] [place] [facility] CLIA [id number] [address] [place] [address] OF [place] #### 30729-5 #### [facility] CLIA [id number] [address] [place] [address] STATES [facility] Cholesterol in LDL [Mass/Vol] 51 mg/dL Normal <100 [facility] Comment on above: Order Comment: Speci men Type: BLOOD SPECIMEN Ordering Facility: [facility] Address: [address] [place] [address] Result Comment: <100 mg/dL, Optimal 100-129 mg/dL, Near optimal/above optimal 130-159 mg/dL, Borderline high 160-189 mg/dL, High >189 mg/dL, Very high Secondary prevention optimal LDL Cholesterol levels are recommended to be < 70 mg/dL Performed By: #### 2 4331-1 #### [facility] CLIA [id number] [address] [place] [address] [place] [facility] CLIA [id number] [address] OF [place] #### 19456-0 #### [facility] CLIA [id number] [address] [place] [address] [place] Cholesterol in LDL/Cholesterol in HDL [Mass ratio] 1.50 {ratio} Normal <2.54 [facility] Comment on above: Order Comment: Speci men Type: BLOOD SPECIMEN Ordering Facility: [facility] Address: [address] [place] [address] Result Comment: Hussein phillips: 1. National Cholesterol Education Program ATP III Guideline At-A-Glance Quick Desk Reference: National Heart, Lung, and Blood [place]. National Institutes of Health. 2001: NIH Publication No. 01-3305. 2. An International Atherosclerosis Society position paper: global recommendations for the management of dyslipidemia: executive summary, Atherosclerosis. 2014: 232(2):410-413. Performed By: #### 2 4331-1 #### [facility] CLIA [id number] [address] [place] [address] [place] [facility] CLIA [id number] [address] [place] [address] [place] #### 68579-5 #### [facility] CLIA [id number] [address] [place] [address] [place] Cholesterol in VLDL [Mass/Vol] 13 mg/dL Normal <30 [facility] Comment on above: Order Comment: Speci men Type: BLOOD SPECIMEN Ordering Facility: [facility] Address: [address] [place] [address] Performed By: #### 2 4331-1 #### [facility] CLIA [id number] [address] [place] [address] [place] [facility] CLIA [id number] [address] [place] [address] [place] #### 24801-8 #### [facility] CLIA [id number] [address] [place] [address] [place] Cholesterol non HDL [Mass/Vol] 64 mg/dL Normal <130 [facility] Comment on above: Order Comment: Speci men Type: BLOOD SPECIMEN Ordering Facility: [facility] Address: [address] [place], [place] [address] Result Comment: <130 mg/dL, Optimal 130-159 mg/dL, Near optimal/above optimal 160-189 mg/dL, Borderline high 190-219 mg/dL, High >219 mg/dL, Very high Secondary prevention optimal non HDL Cholesterol levels are recommended to be <100 mg/dL Performed By: #### 2 4331-1 #### [facility] CLIA [id number] [address] [place] [address] [place] [facility] CLIA [id number] [address] [place] [address] [place] #### 95954-5 #### [facility] CLIA [id number] [address] [place] [address] [place] Cholesterol.total/Gin sterol in HDL [Mass ratio] 2.88 {ratio} Normal <5.10 [facility] Comment on above: Order Comment: Speci men Type: BLOOD SPECIMEN Ordering Facility: [facility] Address: [address] [place] [id number] Performed By: #### 2 4331-1 #### [facility] CLIA [id number] [facility] [place] [address] [place] [facility] CLIA [id number] [address] [place] [address] [place] #### 06743-8 #### [facility] CLIA [id number] [address] [place] [address] [place] FASTING TIME [address] [facility] Comment on above: Order Comment: Speci men Type: BLOOD SPECIMEN Ordering Facility: [facility] Address: [address] [place] [id number] Performed By: #### 2 4331-1 #### [facility] CLIA [id number] [address] [place] [address] [place] [facility] [id number] [address] [place] [address] [place] #### 25140-9 #### [facility] CLIA [id number] [address] [place] [address] [place] Triglyceride [Mass/Vol] 67 mg/dL Normal <150 [facility] Comment on above: Order Comment: Speci men Type: BLOOD SPECIMEN Ordering Facility: [facility] Address: [address] [place] [id number] Result Comment: <150 mg/dL, Normal 150-199 mg/dL, Borderline high 200-499 mg/dL, High >499 mg/dL, Very high Performed By: #### 2 4331-1 #### [facility] CLIA [id number] [address] [place] [address] [place] [facility] CLIA [id number] [address] [place] [address] [place] #### 80873-4 #### [facility] CLIA [id number] [address] [place] [address] [place] NT-proBNP SerPl-ncon 02-02 Natriuretic peptide.B prohormone N-Terminal [Mass/Vol] 8577 pg/mL High <450 [facility] Comment on above: Order Comment: Speci men Type: BLOOD SPECIMEN Ordering Facility: [facility] Address: [address] [place] [address] Performed By: #### 2 4331-1 #### [facility] CLIA [id number] [address] [place] [address] [place] [facility] [id number] [address] [place] [address] [place] #### 45546-4 #### [facility] CLIA [id number] [address] [place] [address] [place] Phosphate SerPl-mCncon 02-02 Phosphate [Mass/Vol] 3.3 mg/dL Normal 2.7-4.8 [facility] Comment on above: Order Comment: Speci men Type: BLOOD SPECIMEN Ordering Facility: [facility] Address: [address] [place] [address] Performed By: #### 3 3762-6 #### [facility] CLIA [id number] [address] [place] [address] [place] CNOVon 01-17-2024 CNOV Office Visit (CAWSTR ) BERTA SANCHES ([id number]) 1945 [place] Date Time Provider Department 01/17/24 9:20 AM CARLA BURDICK During your visit today, we recorded the following information about you: Pulse Blood pressure Weight Height 64/minute 157/59 66.8 kg 1.575 m Carla Burdick MD 01/17/2024 10:36 AM [facility] SECTION OF REGIONAL CARDIOLOGY Cardiology ([facility]) [address] [facility] [id number] OUTPATIENT VISIT DATE 01/17/2024 PRIMARY CARE PHYSICIAN: Gerard Le [address] [place] [address] HISTORY OF PRESENT ILLNESS: Ms. 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 Lua PACEMAKER 10/2019 PART. HYSTERECTOMY W/WO RMVL OVARIES/TUBES 1974 h/o cervical cancer ovaries remain PAST SURGICAL HISTORY OF 1996 Aortic valve repair, Dr. Apodaca PAST SURGICAL HISTORY OF 2001 [address] Beltrán, [facility] PAST SURGICAL HISTORY OF 2015 clipping [...] af (more content not included)... Normal [facility] ALLIED HEALTHon 11-08-2023 ALLIED HEALTH HNO ID: [id number] Author: SONY LUIS RT(R) Service: Radiology Author [...] PATIENT PRESENTS WITH AN IMPLANTABLE OR ATTACHED PUBLIC RELATIONS STUDIES DIRECTOR: No RADIOLOGY DEPARTMENT: General X-ray: Exam(s) Completed: Chest X-Ray PERIPHERAL IV DATA: Not applicable SIGNED BY: RT Risa(R) November 08, 2023 6:37 PM [facility] ED PROV NOTEon 11-08-2023 ED PROV NOTE HNO ID: [id number] Author: SHUBHAM CHAUDHRY MD Service: ? Author Type: Physician Type: ED Provider Notes Filed: 11/08/2023 20:32 Note Text: Left after being seen in triage. Called patient and recommended she come back due to her presenting sxs. States she will come back. SIGNATURE: Shubham Chaudhry MD PATIENT NAME: Berat Sanches DATE: November 08, 2023 TIME: 8:31 PM PAGER/CONTACT #: SHUBHAM CHAUDHRY 11/08/232031 [facility] ED Triage Noteon 11-08-2023 ED Triage Note HNO ID: [id number] Author: SHUBHAM CHAUDHRY MD Service: ? Author [...] TROPONIN T EKG SIGNATURE: Shubham Chaudhry MD [facility] EKGon 11-08-2023 Electrocardiogram Ventricular Rate : 1 13 BPM Atrial Rate : 0 BPM P-R Interval : 250 ms QRS Duration : 102 ms Q-T Interval : 320 ms QTC Calculation(Bazett) : 439 ms Calculated P [place] : -38 degrees Calculated R [place] : -29 degrees Calculated T [place] : 132 degrees Sinus tachycardia Prolonged CA interval LVH with secondary repolarization abnormality Abnormal ECG No Stemi 1746 Confirmed by MD CHAUDHRY BLAIN ([id number]), editor trade journal BRYON MIJARES ([id number]) on 11/08/2023 10:31:52 PM NAME : BERTA SANCHES PID : [id number] : 1945 Gender : Female Race : ORD : Procedure Date : Nov 08 2023 17:44:03 Edit Date : Nov 08 2023 22:31:54 Diagnosis: Sinus tachycardia Prolonged CA interval LVH with secondary repolarization abnormality Abnormal ECG No Stemi 1746 Confirmed by MD CHAUDHRY BLAIN ([id number]), editor trade journal BRYON MIJARES ([id number]) on 11/08/2023 10:31:52 PM Test Reason : Location : 402 : FVED TRIAGE Overread By : MD CHAUDHRY BLAIN Edited By : BRYON MIJARES Referred By : , Acquired by : [id number], Normal [facility] XR CHEST 2V FRONTAL/LATon XR CHEST [...] Query hilar lymphadenopathy. No confluent alveolar opacity. Holistic Nutritionist: PSCB Transcribe Date/Time: Nov 08 2023 7:38P Dictated by : LIZZIE LARA MD This examination was interpreted and the report reviewed and electronically signed by: LIZZIE LARA MD on Nov 08 2023 7:44PM EST [id number] Normal [facility] US Lower extremity veins - b ilateralon 10-20-2023 Non-Invasive Vascular Laboratory [facility] Lower Extremity Venous Duplex [...] below for Image [facility] ECG COMPLETEon 10-19-2023 Atrial Rate 125 BPM [facility] Calculated R [place] -40 degrees [facility] Calculated T [place] -34 degrees [facility] QRS Duration 106 ms [facility] QT Interval 410 ms [facility] QTC Calculation (Bazett) 490 ms [facility] Ventricular Rate 86 BPM [facility] Chest PA and Lateralon IMPRESSION: No acute radiographic abnormality. Cardiomegaly Holistic Nutritionist: JAMES Transcribe Date/Time: Oct 18 2023 4:16P Dictated by : MICHAELLE BAHENA MD This examination was interpreted and the report reviewed and electronically signed by: MICHAELLE BAHENA MD on Oct 18 2023 4:18PM [facility] DIVISION OF RADIOLOGY * * [...] soft tissues: Unremarkable. DIVISION OF RADIOLOGY Provider, [facility] - 10/18/2023 * * *Final Report* [...] IMPRESSION IMPRESSION: No acute radiographic abnormality. Cardiomegaly Holistic Nutritionist: JAMES Transcribe Date/Time: Oct 18 2023 4:16P Dictated by : MICHAELLE BAHENA MD This examination was interpreted and the report reviewed and electronically signed by: MICHAELLE BAHENA MD on Oct 18 2023 4:18PM [facility] Radiology Study observation (narrative) Chris molina [facility] XR Chest PA and LateralOrder ed By: Ccf Provider on 10-18-2023 [facility] No Panel Informationon 10-15 BLANK _ [facility] Implant Date 10/21/2020 [facility] PACEMAKER REMOTE CHECKon AV Delay Adaptive Paced Minimum (ms) 180 ms [facility] AV Delay Adaptive Sensed Minimum (ms) 150 ms [facility] AV Delay Adaptive Status DISABLED [facility] Battery Voltage (volts) 3.02 V C [facility]avan RA Pacing Amplitude (volts) 1.5 V [facility] Pavan RA Pacing Polarity BI [facility] [place] RA Pacing Pulse Width (ms) 0.4 ms [facility] [place] RA Sensing Amplitude (mvolts) 0.3 mV [facility] [place] RA Sensing Blanking Period (ms) 150 ms [facility] RA Sensing Polarity BI [facility] RA Sensing Refractory Period (ms) Auto [facility] [place] RV Pacing Amplitude (volts) 2 V [facility] [place] RV Pacing Polarity BI [facility] [place] RV Pacing Pulse Width (ms) 0.4 ms [facility] [place] RV Sensing Amplitude (mvolts) 0.9 mV [facility] Pavan RV Sensing Blanking Period (ms) 200 ms [facility] [place] RV Sensing Polarity BI [facility] Hysteresis Rate (bpm) DISABLED [facility] Lead1 Mfg MDT [facility] Lead2 Mfg MDT [facility] Location RV [facility] Location RA [facility] Lower Rate (bpm) 60 {beats}/min [facility] Max Sensor Rate (bmp) 120 {beats}/min [facility] Model [id number] [place] XT DR MRI Cl [facility] Model 3830 SelectSecure MR I SureScan [facility] Model 5076 CapSureFix Novus [facility] PM-Device Mfg MDT [facility] PM-Percent Pacing (A) 7.59 % [facility] PM-Percent Pacing (V) 18.89 % [facility] PM-PMT Intervention ENABLED [facility] PM-PVC Intervention ENABLED [facility] PM-Rate Modulation Acceleration Reaction 30 s [facility] PM-Rate Modulation ADL Rate (bpm) 95 {beats}/min [facility] PM-Rate Modulation Deceleration Exercise [facility] PM-Rate Modulation [place] 3 [facility] PM-Rate Modulation Threshold Low [facility] RA Bipolar Impedance ohms 513 ohm [facility] RA Unipolar Impedance [place] 304 ohm [facility] RV Bipolar Impedance ohms 456 ohm [facility] RV Unipolar Impedance 342 ohm [facility] Serial Number [id number] [facility] Serial Number [id number] [facility] Serial Number [id number] [facility] Thresh RA Capture Amplitude (volts) 0.75 V [facility] Thresh RA Capture Duration (ms) 0.4 ms [facility] Thresh RA Sensing Amplitude (mvolts) 0.5 mV [facility] Thresh RV Capture Amplitude (volts) 1 V [facility] Thresh RV Capture Duration (ms) 0.4 ms [facility] Thresh RV Sensing Amplitude (mvolts) 12.5 mV [facility] Tracking Rate (bpm) 120 {beats}/min [facility] INFLUENZA A&B MOLECULAR (POC )on 07-05-2023 Flu A (POCT) Negative Negative [facility] Flu B (POCT) Negative Negative [facility] Procedural Control Valid [facility] XR Foot - right AP and Later al and obliqueon 06-03-2023 IMPRESSION: 1. Nondisplaced fracture of the base of the right fifth metatarsal 2. Right first metatarsophalangeal joint space narrowing and periarticular erosions, which can be seen with gout Holistic Nutritionist: JAMES Transcribe Date/Time: Jun 03 2023 4:34P Dictated by : JUDSON JACINTO MD This examination was interpreted and the report reviewed and electronically signed by: JUDSON JACINTO MD on Jun 03 2023 4:36PM [facility] DIVISION OF RADIOLOGY * * [...] soft tissue swelling. DIVISION OF RADIOLOGY [facility] * * *Final [...] erosions, which can be seen with gout Holistic Nutritionist: JAMES Transcribe Date/Time: Jun 03 2023 4:34P Dictated by : JUDSON JACINTO MD This examination was interpreted and the report reviewed and electronically signed by: JUDSON JACINTO MD on Jun 03 2023 4:36PM EST [facility] XR Foot - right AP and Later al and obliqueOrdered By: Cc Provider on 06-03-2023 [facility] XR Foot - right AP and Later al and obliqueon 06-01-2023 Radiology Study observation (narrative) [facility] CT CHEST WO IVCONon 04-30-20 [facility] XR Finger - right AP and Lat eral and obliqueon 04-15-2023 IMPRESSION: No acute osseous abnormality Holistic Nutritionist: JAMES Transcribe Date/Time: Apr 15 2023 11:58A Dictated by : JUDSON JACINTO MD This examination was interpreted and the report reviewed and electronically signed by: JUDSON JACINTO MD on Apr 15 2023 11:59AM [facility] DIVISION OF RADIOLOGY * * [...] No periarticular erosions. DIVISION OF RADIOLOGY Provider, [place] [facility] - 04/15/2023 * * *Final Report* [...] erosions. IMPRESSION IMPRESSION: No acute osseous abnormality Holistic Nutritionist: PSCB Transcribe Date/Time: Apr 15 2023 11:58A Dictated by : JUDSON JACITNO MD This examination was interpreted and the report reviewed and electronically signed by: JUDSON JACINTO MD on Apr 15 2023 11:59AM EST [facility] XR Finger - right AP and Lat eral and obliqueOrdered By: Ccf Provider on 04-15-2023 [facility] XR Finger - right AP and Lat eral and obliqueon 04-12-2023 Radiology Study observation (narrative) [facility] No Panel Informationon 03-28 BLANK _ [facility] Implant Date 10/21/2020 [facility] PACEMAKER REMOTE CHECKon AV Delay Adaptive Paced Minimum (ms) 180 ms [facility] AV Delay Adaptive Sensed Minimum (ms) 150 ms [facility] AV Delay Adaptive Status DISABLED [facility] Battery Voltage (volts) 3.02 V [facility] Pavan RA Pacing Amplitude (volts) 1.5 V [facility] Pavan RA Pacing Polarity BI [facility] Pavan RA Pacing Pulse Width (ms) 0.4 ms [facility] Pavan RA Sensing Amplitude (mvolts) 0.3 mV [facility] Pavan RA Sensing Blanking Period (ms) 150 ms [facility] Pavan RA Sensing Polarity BI [facility] Pvaan RA Sensing Refractory Period (ms) Auto [facility] Pavan RV Pacing Amplitude (volts) 2 V [facility] Pavan RV Pacing Polarity BI [facility] Pavan RV Pacing Pulse Width (ms) 0.4 ms [facility] Pavan RV Sensing Amplitude (mvolts) 0.9 mV [facility] Pavan RV Sensing Blanking Period (ms) 200 ms [facility] Pavan RV Sensing Polarity BI [facility] Hysteresis Rate (bpm) DISABLED [facility] Lead1 Mfg MDT [facility] Lead2 Mfg MDT [facility] Location RV [facility] Location RA [facility] Lower Rate (bpm) 60 {beats}/min [facility] Max Sensor Rate (bmp) 120 {beats}/min [facility] Model [id number] Sania XT DR MRI Cl [facility] Model 3830 SelectSecure MR I SureScan [facility] Model 5076 CapSureFix Novus [facility] PM-Device Mfg MDT [facility] PM-Percent Pacing (A) 96.66 % [facility] PM-Percent Pacing (V) 1.41 % [facility] PM-PMT Intervention ENABLED [facility] PM-PVC Intervention ENABLED [facility] PM-Rate Modulation Acceleration Reaction 30 s [facility] PM-Rate Modulation ADL Rate (bpm) 95 {beats}/min [facility] PM-Rate Modulation Deceleration Exercise [facility] PM-Rate Modulation [place] 3 [facility] PM-Rate Modulation Threshold Low [facility] RA Bipolar Impedance ohms 475 ohm [facility] RA Unipolar Impedance [place] 304 ohm [facility] RV Bipolar Impedance ohms 437 ohm [facility] RV Unipolar Impedance 342 ohm [facility] Serial Number [id number] [facility] Serial Number [id number] [facility] Serial Number [id number] [facility] Thresh RA Capture Amplitude (volts) 0.75 V [facility] Thresh RA Capture Duration (ms) 0.4 ms [facility] Thresh RA Sensing Amplitude (mvolts) 0.75 mV [facility] Thresh RV Capture Amplitude (volts) 1 V [facility] Thresh RV Capture Duration (ms) 0.4 ms [facility] Thresh RV Sensing Amplitude (mvolts) 12.375 mV [facility] Tracking Rate (bpm) 120 {beats}/min [facility] No Panel Informationon 12-29 BLANK _ [facility] Implant Date 10/21/2020 [facility] PACEMAKER REMOTE CHECKon AV Delay Adaptive Paced Minimum (ms) 180 ms [facility] AV Delay Adaptive Sensed Minimum (ms) 150 ms [facility] AV Delay Adaptive Status DISABLED [facility] Battery Voltage (volts) 3.02 V [facility] Pavan RA Pacing Amplitude (volts) 1.5 V [facility] Pavan RA Pacing Polarity BI [facility] Pavan RA Pacing Pulse Width (ms) 0.4 ms [facility] Pavan RA Sensing Amplitude (mvolts) 0.3 mV [facility] Pavan RA Sensing Blanking Period (ms) 150 ms [facility] Pavan RA Sensing Polarity BI [facility] Pavan RA Sensing Refractory Period (ms) Auto [facility] Pavan RV Pacing Amplitude (volts) 2 V [facility] Pavan RV Pacing Polarity BI [facility] Pavan RV Pacing Pulse Width (ms) 0.4 ms [facility] Pavan RV Sensing Amplitude (mvolts) 0.9 mV [facility] Pavan RV Sensing Blanking Period (ms) 200 ms [facility] Pavan RV Sensing Polarity BI [facility] Hysteresis Rate (bpm) DISABLED [facility] Lead1 Mfg MDT [facility] Lead2 Mfg MDT [facility] Location RV [facility] Location RA [facility] Lower Rate (bpm) 60 {beats}/min [facility] Max Sensor Rate (bmp) 120 {beats}/min [facility] Model [id number] [place] XT DR MRI Cl [facility] Model 3830 SelectSecure MR I SureScan [facility] Model 5076 CapSureFix Novus [facility] PM-Device Mfg MDT [facility] PM-Percent Pacing (A) 79.14 % [facility] PM-Percent Pacing (V) 5.48 % [facility] PM-PMT Intervention ENABLED [facility] PM-PVC Intervention ENABLED [facility] PM-Rate Modulation Acceleration Reaction 30 s [facility] PM-Rate Modulation ADL Rate (bpm) 95 {beats}/min [facility] PM-Rate Modulation Deceleration Exercise [facility] PM-Rate Modulation [place] 3 [facility] PM-Rate Modulation Threshold Low [facility] RA Bipolar Impedance ohms 437 ohm [facility] RA Unipolar Impedance ohms 304 ohm [facility] RV Bipolar Impedance ohms 437 ohm [facility] RV Unipolar Impedance 342 ohm [facility] Serial Number [id number] [facility] Serial Number [id number] [facility] Serial Number [id number] [facility] Thresh RA Capture Amplitude (volts) 0.625 V [facility] Thresh RA Capture Duration (ms) 0.4 ms [facility] Thresh RA Sensing Amplitude (mvolts) 0.875 mV [facility] Thresh RV Capture Amplitude (volts) 1 V [facility] Thresh RV Capture Duration (ms) 0.4 ms [facility] Thresh RV Sensing Amplitude (mvolts) 10.75 mV [facility] Tracking Rate (bpm) 120 {beats}/min [facility] MRA BRAIN WO/W IVCONon 12-10 MRA BRAIN WO/W IVCON * * *Final Report* * * DATE OF EXAM: Dec 10 2022 1:14PM [facility] 0273 - MRA BRAIN WO/W IVCON / PROCEDURE REASON: multiple diagnoses * * * * Physician Interpretation * * * * EXAMINATION: MRA BRAIN WO/W IVCON CLINICAL HISTORY: Nonruptured acom aneurysm follow-up. TECHNIQUE: Short TR short TE SPGR through the [place] [facility] [place] after contrast. Intracranial 3D [id number] MRA with post-processing performed at the modality [...] aneurysm coiling. No additional intracranial aneurysms identified. Holistic Nutritionist: JAMES Transcribe Date/Time: Dec 10 2022 1:31P Dictated by : TYE REN MD This examination was interpreted and the report reviewed and electronically signed by: TYE REN MD on Dec 10 2022 1:38PM EST [id number] Normal [facility] US KIDNEY/BLADDERon 10-07-19 Radiology Result ACTIONABLE Abnormal [facility] No Panel Informationon 09-27 BLANK _ [facility] Implant Date 10/21/2020 [facility] PACEMAKER REMOTE CHECKon AV Delay Adaptive Paced Minimum (ms) 180 ms [facility] AV Delay Adaptive Sensed Minimum (ms) 150 ms [facility] AV Delay Adaptive Status DISABLED [facility] Battery Voltage (volts) 3.02 V [facility] Pavan RA Pacing Amplitude (volts) 1.5 V [facility] Pavan RA Pacing Polarity BI [facility] Pavan RA Pacing Pulse Width (ms) 0.4 ms [facility] Pavan RA Sensing Amplitude (mvolts) 0.3 mV [facility] Pavan RA Sensing Blanking Period (ms) 150 ms [facility] Pavan RA Sensing Polarity BI [facility] Pavan RA Sensing Refractory Period (ms) Auto [facility] Pavan RV Pacing Amplitude (volts) 2 V [facility] Pavan RV Pacing Polarity BI [facility] Pavan RV Pacing Pulse Width (ms) 0.4 ms [facility] Pavan RV Sensing Amplitude (mvolts) 0.9 mV [facility] Pavan RV Sensing Blanking Period (ms) 200 ms [facility] Pavan RV Sensing Polarity BI [facility] Hysteresis Rate (bpm) DISABLED [facility] Lead1 Mfg MDT [facility] Lead2 Mfg MDT [facility] Location RV [facility] Location RA [facility] Lower Rate (bpm) 60 {beats}/min [facility] Max Sensor Rate (bmp) 120 {beats}/min [facility] Model [id number] [place] XT DR MRI Cl [facility] Model 3830 SelectSecure MR I SureScan [facility] Model 5076 CapSureFix Novus [facility] PM-Device Mfg MDT [facility] PM-Percent Pacing (A) 46.27 % [facility] PM-Percent Pacing (V) 11.47 % [facility] PM-PMT Intervention ENABLED [facility] PM-PVC Intervention ENABLED [facility] PM-Rate Modulation Acceleration Reaction 30 s [facility] PM-Rate Modulation ADL Rate (bpm) 95 {beats}/min [facility] PM-Rate Modulation Deceleration Exercise [facility] PM-Rate Modulation [place] 3 [facility] PM-Rate Modulation Threshold Low [facility] RA Bipolar Impedance ohms 494 ohm [facility] RA Unipolar Impedance [place] 285 ohm [facility] RV Bipolar Impedance ohms 437 ohm [facility] RV Unipolar Impedance 323 ohm [facility] Serial Number [id number] [facility] Serial Number [id number] [facility] Serial Number [id number] [facility] Thresh RA Capture Amplitude (volts) 0.5 V [facility] Thresh RA Capture Duration (ms) 0.4 ms [facility] Thresh RA Sensing Amplitude (mvolts) 0.5 mV [facility] Thresh RV Capture Amplitude (volts) 1 V [facility] Thresh RV Capture Duration (ms) 0.4 ms [facility] Thresh RV Sensing Amplitude (mvolts) 13.375 mV [facility] Tracking Rate (bpm) 120 {beats}/min [facility] No Panel Informationon 06-30 BLANK _ [facility] Implant Date 10/21/2020 [facility] PACEMAKER REMOTE CHECKon AV Delay Adaptive Paced Minimum (ms) 180 ms [facility] AV Delay Adaptive Sensed Minimum (ms) 150 ms [facility] AV Delay Adaptive Status DISABLED [facility] Battery Voltage (volts) 3.03 V [facility] Pavan RA Pacing Amplitude (volts) 1.5 V [facility] Pavan RA Pacing Polarity BI [facility] Pavan RA Pacing Pulse Width (ms) 0.4 ms [facility] Pavan RA Sensing Amplitude (mvolts) 0.3 mV [facility] Pavan RA Sensing Blanking Period (ms) 150 ms [facility] Pavan RA Sensing Polarity BI [facility] Pavan RA Sensing Refractory Period (ms) Auto [facility] Pavan RV Pacing Amplitude (volts) 2.5 V [facility] Pavan RV Pacing Polarity BI [facility] Pavan RV Pacing Pulse Width (ms) 0.4 ms [facility] Pavan RV Sensing Amplitude (mvolts) 0.9 mV [facility] Pavan RV Sensing Blanking Period (ms) 200 ms [facility] Pavan RV Sensing Polarity BI [facility] Hysteresis Rate (bpm) DISABLED [facility] Lead1 Mfg MDT [facility] Lead2 Mfg MDT [facility] Location RV [facility] Location RA [facility] Lower Rate (bpm) 60 {beats}/min [facility] Max Sensor Rate (bmp) 120 {beats}/min [facility] Model [id number] [place] XT DR MRI Cl [facility] Model 3830 SelectSecure MR I SureScan [facility] Model 5076 CapSureFix Novus [facility] PM-Device Mfg MDT [facility] PM-Percent Pacing (A) 53.59 % [facility] PM-Percent Pacing (V) 11.72 % [facility] PM-PMT Intervention ENABLED [facility] PM-PVC Intervention ENABLED [facility] PM-Rate Modulation Acceleration Reaction 30 s [facility] PM-Rate Modulation ADL Rate (bpm) 95 {beats}/min [facility] PM-Rate Modulation Deceleration Exercise [facility] PM-Rate Modulation [place] 3 [facility] PM-Rate Modulation Threshold Low [facility] RA Bipolar Impedance [place]ms 456 ohm [facility] RA Unipolar Impedance [place] 304 ohm [facility] RV Bipolar Impedance ohms 437 ohm [facility] RV Unipolar Impedance 323 ohm [facility] Serial Number [id number] [facility] Serial Number [id number] [facility] Serial Number [id number] [facility] Thresh RA Capture Amplitude (volts) 0.5 V [facility] Thresh RA Capture Duration (ms) 0.4 ms [facility] Thresh RA Sensing Amplitude (mvolts) 0.375 mV [facility] Thresh RV Capture Amplitude (volts) 1.125 V [facility] Thresh RV Capture Duration (ms) 0.4 ms [facility] Thresh RV Sensing Amplitude (mvolts) 9.25 mV [facility] Tracking Rate (bpm) 120 {beats}/min [facility] UA DIP, URINE (POC)on 2021 BILIRUBIN UA (POCT) Negative Negative [facility] CLARITY UA (POCT) Clear [facility] COLOR UA (POCT) Yellow [facility] GLUCOSE UA (POCT) Negative Negative mg/dL [facility] HEMOGLOBIN/BLOOD UA (POCT) Negative Negative [facility] KETONE UA (POCT) Negative Negative mg/dL [facility] LEUKOCYTES UA (POCT) Negative Negative [facility] NITRITE UA (POCT) Negative Negative [facility] PH UA (POCT) 5.5 4.5 - 8.0 [facility] Protein Ql (U) 30 mg/dL Abnormal Negative mg/dL [facility] SPECIFIC GRAVITY UA (POCT) 1.020 1.005 - 1.030 [facility] UROBILINOGEN UA (POCT) 0.2 E.U./dL Cat l E.U./dL [facility] CBC W Auto Differential pane l (Bld)on 04-06-2022 Abs Immature Gran 0.03 k/uL <0.10 k/uL [facility] Basophils (Bld) [#/Vol] 0.08 10*3/uL <0.11 k/uL [facility] Basophils/100 WBC (Bld) 1.1 % [facility] Differential cell count method Nom (Bld) Auto [facility] Eosinophils (Bld) [#/Vol] 0.11 10*3/uL <0.46 k/uL [facility] Eosinophils/100 WBC (Bld) 1.5 % [facility] Erythrocyte distribution width (RBC) [Ratio] 19.9 % High 11.5 - 15.0 % [facility] Hematocrit (Bld) [Volume fraction] 31.3 % Low 36.0 - 46.0 % [facility] Hemoglobin (Bld) [Mass/Vol] 9.2 g/dL Low 11.5 - 15.5 g/dL [facility] Immature Gran % 0.4 % [facility] Lymphocytes (Bld) [#/Vol] 2.05 10*3/uL 1.00 - 4.00 k/uL [facility] Lymphocytes/100 WBC (Bld) 27.9 % [facility] MCH (RBC) [Entitic mass] 24.5 pg Low 26.0 - 34.0 pg [facility] MCHC (RBC) [Mass/Vol] 29.4 g/dL Low 30.5 - 36.0 g/dL [facility] MCV (RBC) [Entitic vol] 83.5 fL 80.0 - 100.0 fL [facility] Monocytes (Bld) [#/Vol] 0.93 10*3/uL High <0.87 k/uL [facility] Monocytes/100 WBC (Bld) 12.7 % [facility] Neutrophils (Bld) [#/Vol] 4.14 10*3/uL 1.45 - 7.50 k/uL [facility] Neutrophils/100 WBC (Bld) 56.4 % [facility] Nucleated RBC (Bld) [#/Vol] <0.01 k/uL [facility] Nucleated RBC/100 WBC (Bld) [Ratio] 0.0 /100 WBC [facility] Platelet mean volume (Bld) [Entitic vol] 9.8 fL 9.0 - 12.7 fL [facility] Platelets (Bld) [#/Vol] 266 10*3/uL 150 - 400 k/uL [facility] RBC (Bld) [#/Vol] 3.75 10*6/uL Low 3.90 - 5.2 0 m/uL [facility] WBC (Bld) [#/Vol] 7.34 10*3/uL 3.70 - 11. 00 k/uL [facility] FERRITIN BLDon 04-06-2022 Ferritin [Mass/Vol] 27.1 ng/mL 14.7 - 2 05.1 ng/mL [facility] Iron and Iron binding capaci ty panelon 04-06-2022 Iron [Mass/Vol] 26 ug/dL Low 41 - 186 ug/dL [facility] Iron binding capacity [Mass/Vol] 454 ug/dL High 232 - 386 ug/dL [facility] Iron/TIBC [Molar ratio] 5.7 % Low 15.0 - 57.0 % [facility] No Panel Informationon 03-28 BLANK _ [facility] Implant Date 10/21/2020 [facility] PACEMAKER REMOTE CHECKon AV Delay Adaptive Paced Minimum (ms) 180 ms [facility] AV Delay Adaptive Sensed Minimum (ms) 150 ms [facility] AV Delay Adaptive Status DISABLED [facility] Battery Voltage (volts) 3.03 V [facility] Pavan RA Pacing Amplitude (volts) 1.5 V [facility] Pavan RA Pacing Polarity BI [facility] Pavan RA Pacing Pulse Width (ms) 0.4 ms [facility] Pavan RA Sensing Amplitude (mvolts) 0.3 mV [facility] Pavan RA Sensing Blanking Period (ms) 150 ms [facility] Pavan RA Sensing Polarity BI [facility] Pavan RA Sensing Refractory Period (ms) Auto [facility] Pavan RV Pacing Amplitude (volts) 2 V [facility] Pavan RV Pacing Polarity BI [facility] Pavan RV Pacing Pulse Width (ms) 0.4 ms [facility] Pavan RV Sensing Amplitude (mvolts) 0.9 mV [facility] Pavan RV Sensing Blanking Period (ms) 200 ms [facility] Pavan RV Sensing Polarity BI [facility] Hysteresis Rate (bpm) DISABLED [facility] Lead1 Mfg MDT [facility] Lead2 Mfg MDT [facility] Location RV [facility] Location RA [facility] Lower Rate (bpm) 60 {beats}/min [facility] Max Sensor Rate (bmp) 120 {beats}/min [facility] Model W1DR01 [place] XT DR MRI Cl [facility] Model 3830 SelectSecure MR I SureScan [facility] Model 5076 CapSureFix Novus [facility] PM-Device Mfg MDT [facility] PM-Percent Pacing (A) 13.82 % [facility] PM-Percent Pacing (V) 9.69 % [facility] PM-PMT Intervention ENABLED [facility] PM-PVC Intervention ENABLED [facility] PM-Rate Modulation Acceleration Reaction 30 s [facility] PM-Rate Modulation ADL Rate (bpm) 95 {beats}/min [facility] PM-Rate Modulation Deceleration Exercise [facility] PM-Rate Modulation [place] 3 [facility] PM-Rate Modulation Threshold Low [facility] RA Bipolar Impedance ohms 437 ohm [facility] RA Unipolar Impedance [place] 285 ohm [facility] RV Bipolar Impedance [place] 418 ohm [facility] RV Unipolar Impedance 323 ohm [facility] Serial Number [id number] [facility] Serial Number [id number] [facility] Serial Number [id number] [facility] Thresh RA Capture Amplitude (volts) 0.75 V [facility] Thresh RA Capture Duration (ms) 0.4 ms [facility] Thresh RA Sensing Amplitude (mvolts) 0.25 mV [facility] Thresh RV Capture Amplitude (volts) 1 V [facility] Thresh RV Capture Duration (ms) 0.4 ms [facility] Thresh RV Sensing Amplitude (mvolts) 13.375 mV [facility] Tracking Rate (bpm) 120 {beats}/min [facility] ECHO TRANSESOPHAGEALon 03-03 [facility] No Panel Informationon 03-03 BLANK _ [facility] Implant Date 10/21/2020 [facility] PACEMAKER CLINIC CHECKon AV Delay Adaptive Paced Minimum (ms) 180 ms [facility] AV Delay Adaptive Sensed Minimum (ms) 150 ms [facility] AV Delay Adaptive Status DISABLED [facility] Battery Voltage (volts) 3.03 V [facility] Pavan RA Pacing Amplitude (volts) 1.5 V [facility] Pavan RA Pacing Polarity BI [facility] Pavan RA Pacing Pulse Width (ms) 0.4 ms [facility] Pavan RA Sensing Amplitude (mvolts) 0.3 mV [facility] Pavan RA Sensing Blanking Period (ms) 150 ms [facility] Pavan RA Sensing Polarity BI [facility] Pavan RA Sensing Refractory Period (ms) Auto [facility] Pavan RV Pacing Amplitude (volts) 2 V [facility] Pavan RV Pacing Polarity BI [facility] Pavan RV Pacing Pulse Width (ms) 0.4 ms [facility] Pavan RV Sensing Amplitude (mvolts) 0.9 mV [facility] Pavan RV Sensing Blanking Period (ms) 200 ms [facility] Pavan RV Sensing Polarity BI [facility] Hysteresis Rate (bpm) DISABLED [facility] Lead1 Mfg MDT [facility] Lead2 Mfg MDT [facility] Location RV [facility] Location RA [facility] Lower Rate (bpm) 60 {beats}/min [facility] Max Sensor Rate (bmp) 120 {beats}/min [facility] Model W1DR01 [place] XT DR MRI Cl [facility] Model 3830 SelectSecure MR I SureScan [facility] Model 5076 CapSureFix Novus [facility] Pacemaker Dependent? NO [facility] PM-Device Mfg MDT [facility] PM-Percent Pacing (A) 3.4 % [facility] PM-Percent Pacing (V) 14.6 % [facility] PM-PMT Intervention ENABLED [facility] PM-PVC Intervention ENABLED [facility] PM-Rate Modulation Acceleration Reaction 30 s [facility] PM-Rate Modulation ADL Rate (bpm) 95 {beats}/min [facility] PM-Rate Modulation Deceleration Exercise [facility] PM-Rate Modulation [place] 3 [facility] PM-Rate Modulation Threshold Low [facility] RA Bipolar Impedance ohms 456 ohm [facility] RA Unipolar Impedance [place]ms 285 ohm [facility] Rhythm Atrial Fibrillation [facility] RV Bipolar Impedance ohms 437 ohm [facility] RV Unipolar Impedance 342 ohm [facility] Serial Number [id number] [facility] Serial Number [id number] [facility] Serial Number [id number] [facility] Thresh RA Capture Amplitude (volts) 0.75 V [facility] Thresh RA Capture Duration (ms) 0.4 ms [facility] Thresh RA Sensing Amplitude (mvolts) 0.375 mV [facility] Thresh RV Capture Amplitude (volts) 0.875 V [facility] Thresh RV Capture Duration (ms) 0.4 ms [facility] Thresh RV Sensing Amplitude (mvolts) 12.75 mV [facility] Tracking Rate (bpm) 120 {beats}/min [facility] HEMOGLOBIN (HGB)on Hemoglobin (Bld) [Mass/Vol] 8.1 g/dL Low 11.5 - 15.5 g/dL [facility] Hematocrit Auto (Bld) [Volum e fraction]on 02-20-2022 Hematocrit (Bld) [Volume fraction] 26.4 % Low 36.0 - 46.0 % [facility] No Panel Informationon 01-09 BLANK _ [facility] Implant Date 10/21/2020 [facility] CLIN[facility] CHECKon AV Delay Adaptive Paced Minimum (ms) 180 ms [facility] AV Delay Adaptive Sensed Minimum (ms) 150 ms [facility] AV Delay Adaptive Status DISABLED [facility] Battery Voltage (volts) 3.04 V [facility] Pavan RA Pacing Amplitude (volts) 1.5 V [facility] Pavan RA Pacing Polarity BI [facility] Pavan RA Pacing Pulse Width (ms) 0.4 ms [facility] Pavan RA Sensing Amplitude (mvolts) 0.3 mV [facility] Pavan RA Sensing Blanking Period (ms) 150 ms [facility] Pavan RA Sensing Polarity BI [facility] Pavan RA Sensing Refractory Period (ms) Auto [facility] Pavan RV Pacing Amplitude (volts) 2 V [facility] Pavan RV Pacing Polarity BI [facility] Pavan RV Pacing Pulse Width (ms) 0.4 ms [facility] Pavan RV Sensing Amplitude (mvolts) 0.9 mV [facility] Pavan RV Sensing Blanking Period (ms) 200 ms [facility] Pavan RV Sensing Polarity BI [facility] Hysteresis Rate (bpm) DISABLED [facility] Lead1 Mfg MDT [facility] Lead2 Mfg MDT [facility] Location RV [facility] Location RA [facility] Lower Rate (bpm) 60 {beats}/min [facility] Max Sensor Rate (bmp) 120 {beats}/min [facility] Model W1DR01 [place] XT DR MRI Cl [facility] Model 3830 SelectSecure MR I SureScan [facility] Model 5076 CapSureFix Novus [facility] Pacemaker Dependent? NO [facility] PM-Device Karlg MDT [facility] PM-Percent Pacing (A) 32.01 % [facility] PM-Percent Pacing (V) 13.19 % [facility] PM-PMT Intervention ENABLED [facility] PM-PVC Intervention ENABLED [facility] PM-Rate Modulation Acceleration Reaction 30 s [facility] PM-Rate Modulation ADL Rate (bpm) 95 {beats}/min [facility] PM-Rate Modulation Deceleration Exercise [facility] PM-Rate Modulation [place] 3 [facility] PM-Rate Modulation Threshold Low [facility] RA Bipolar Impedance ohms 456 ohm [facility] RA Unipolar Impedance ohms 285 ohm [facility] Rhythm Atrial Fibrillation [facility] RV Bipolar Impedance ohms 437 ohm [facility] RV Unipolar Impedance 342 ohm [facility] Serial Number [id number] [facility] Serial Number [id number] [facility] Serial Number [id number] [facility] Thresh RA Capture Amplitude (volts) 0.75 V [facility] Thresh RA Capture Duration (ms) 0.4 ms [facility] Thresh RA Sensing Amplitude (mvolts) 0.375 mV [facility] Thresh RV Capture Amplitude (volts) 1 V [facility] Thresh RV Capture Duration (ms) 0.4 ms [facility] Thresh RV Sensing Amplitude (mvolts) 13.6 mV [facility] Tracking Rate (bpm) 120 {beats}/min [facility] EGD DIAGNOSTICon 01-02-2022 [facility] CBC panel Auto (Bld)on 12-26 Erythrocyte distribution width (RBC) [Ratio] 16.8 % High 11.5 - 15.0 % [facility] Hematocrit (Bld) [Volume fraction] 28.2 % Low 36.0 - 46.0 % [facility] Hemoglobin (Bld) [Mass/Vol] 8.1 g/dL Low 11.5 - 15.5 g/dL [facility] MCH (RBC) [Entitic mass] 24.5 pg Low 26.0 - 34.0 pg [facility] MCHC (RBC) [Mass/Vol] 28.7 g/dL Low 30.5 - 36.0 g/dL [facility] MCV (RBC) [Entitic vol] 85.5 fL 80.0 - 100.0 fL [facility] Nucleated RBC (Bld) [#/Vol] 10*3/uL <0.01 k/uL [facility] Platelet mean volume (Bld) [Entitic vol] 10.3 fL 9.0 - 12.7 fL [facility] Platelets (Bld) [#/Vol] 248 10*3/uL 150 - 400 k/uL [facility] RBC (Bld) [#/Vol] 3.30 10*6/uL Low 3.90 - 5.2 0 m/uL [facility] WBC (Bld) [#/Vol] 10.54 10*3/uL 3.70 - 11 .00 k/uL [facility] CBC panel Auto (Bld)on 12-15 Erythrocyte distribution width (RBC) [Ratio] 15.7 % High 11.5 - 15.0 % [facility] Hematocrit (Bld) [Volume fraction] 31.0 % Low 36.0 - 46.0 % [facility] Hemoglobin (Bld) [Mass/Vol] 9.3 g/dL Low 11.5 - 15.5 g/dL [facility] MCH (RBC) [Entitic mass] 24.4 pg Low 26.0 - 34.0 pg [facility] MCHC (RBC) [Mass/Vol] 30.0 g/dL Low 30.5 - 36.0 g/dL [facility] MCV (RBC) [Entitic vol] 81.4 fL 80.0 - 100.0 fL [facility] Nucleated RBC (Bld) [#/Vol] 10*3/uL <0.01 k/uL [facility] Platelet mean volume (Bld) [Entitic vol] 10.0 fL 9.0 - 12.7 fL [facility] Platelets (Bld) [#/Vol] 273 10*3/uL 150 - 400 k/uL [facility] RBC (Bld) [#/Vol] 3.81 10*6/uL Low 3.90 - 5.2 0 m/uL [facility] WBC (Bld) [#/Vol] 9.78 10*3/uL 3.70 - 11. 00 k/uL [facility] HbA1c (Bld)on 12-15-2021 Average glucose Estimated from glycated hemoglobin (Bld) [Mass/Vol] 157 mg/dL [facility] HbA1c (d) [Mass fraction] 7.1 % High 4.3 - 5.6 % [facility] Lipid 1996 panelon 2 Cholesterol [Mass/Vol] 121 mg/dL <200 mg/dL [facility] Cholesterol in HDL [Mass/Vol] 43 mg/dL >39 mg/dL [facility] Cholesterol in LDL [Mass/Vol] 59 mg/dL <100 mg/dL [facility] Cholesterol in LDL/Cholesterol in HDL [Mass ratio] 1.37 {ratio} <2.54 [facility] Cholesterol in VLDL [Mass/Vol] 19 mg/dL <30 mg/dL [facility] Cholesterol non HDL [Mass/Vol] 78 mg/dL <130 mg/dL [facility] Cholesterol.total/Gin sterol in HDL [Mass ratio] 2.81 {ratio} <5.10 [facility] Fasting Time 12 hrs [facility] Triglyceride [Mass/Vol] 93 mg/dL <150 mg/dL [facility] XR HIP GENERAL 3V PELV/AP/LA T LEFTon 12-15-2021 [facility] XR Pelvis and Hip - left AP and Lateral frogon 12-15-2021 IMPRESSION: NEGATIVE HIP. Holistic Nutritionist: PSCB Transcribe Date/Time: Dec 15 2021 12:36P [...] relevant examinations available for comparison within the [facility]. RESULT: Supine radiograph of the pelvis as well as AP and frogleg views of the left hip demonstrate the bony pelvic ring intact. The hips are bilaterally symmetric without fracture or dislocation. No acute bony process is noted. The soft tissues demonstrate aortoiliac calcification [id number] [id number] N OF RADIOLOGY Provider, [place] Swartz - 12/15/2021 * * *Final Report* * [...] relevant examinations available for comparison within the [facility]. RESULT: Supine radiograph of the pelvis as well as AP and frogleg views of the left hip demonstrate the bony pelvic ring intact. The hips are bilaterally symmetric without fracture or dislocation. No acute bony process is noted. The soft tissues demonstrate aortoiliac calcification IMPRESSION IMPRESSION: NEGATIVE HIP. Holistic Nutritionist: PSCB Transcribe Date/Time: Dec 15 2021 12:36P Dictated by : JUAN MOSCOSO MD This examination was interpreted and the report reviewed and electronically signed by: JUAN MOSCOSO MD on Dec 15 2021 12:38PM EST [facility] Radiology Study observation (narrative) Chris molina [facility] XR Pelvis and Hip - left AP and Lateral frogOrdered By: Ccf Provider on 12-15-2021 [facility] No Panel Informationon 12-13 BLANK _ [facility] Implant Date 10/21/2020 [facility] PACEMAKER REMOTE CHECKon AV Delay Adaptive Paced Minimum (ms) 180 ms [facility] AV Delay Adaptive Sensed Minimum (ms) 150 ms [facility] AV Delay Adaptive Status DISABLED [facility] Battery Voltage (volts) 3.04 V [facility] Pavan RA Pacing Amplitude (volts) 1.5 V [facility] RA Pacing Polarity BI [facility] RA Pacing Pulse Width (ms) 0.4 ms [facility] Pavan RA Sensing Amplitude (mvolts) 0.3 mV [facility] Pavan RA Sensing Blanking Period (ms) 150 ms [facility] Pavan RA Sensing Polarity BI [facility] RA Sensing Refractory Period (ms) Auto [facility] Pavan RV Pacing Amplitude (volts) 2 V [facility] P[facility] RV Pacing Polarity BI [facility] Pavan RV Pacing Pulse Width (ms) 0.4 ms [facility] Pavan RV Sensing Amplitude (mvolts) 0.9 mV [facility] Pavan RV Sensing Blanking Period (ms) 200 ms [facility]avan RV Sensing Polarity BI [facility] Hysteresis Rate (bpm) DISABLED [facility] Lead1 Mfg MDT [facility] Lead2 Mfg MDT [facility] Location RV [facility] Location RA [facility] Lower Rate (bpm) 60 {beats}/min [facility] Max Sensor Rate (bmp) 120 {beats}/min [facility] Model [id number] [place] XT DR MRI [facility] Model 3830 SelectSecure MR I SureScan [facility] Model 5076 CapSureFix Novus [facility] PM-Device Mfg MDT [facility] PM-Percent Pacing (A) 0.2 % [facility] PM-Percent Pacing (V) 19.48 % [facility] PM-PMT Intervention ENABLED [facility] PM-PVC Intervention ENABLED [facility] PM-Rate Modulation Acceleration Reaction 30 s [facility] PM-Rate Modulation ADL Rate (bpm) 95 {beats}/min [facility] PM-Rate Modulation Deceleration Exercise [facility] PM-Rate Modulation [place] 3 [facility] PM-Rate Modulation Threshold Low [facility] RA Bipolar Impedance ohms 475 ohm [facility] RA Unipolar Impedance [place] 285 ohm [facility] RV Bipolar Impedance [place] 418 ohm [facility] RV Unipolar Impedance 323 ohm [facility] Serial Number [id number] [facility] Serial Number [id number] [facility] Serial Number [id number] [facility] Thresh RA Capture Amplitude (volts) 0.75 V [facility] Thresh RA Capture Duration (ms) 0.4 ms [facility] Thresh RA Sensing Amplitude (mvolts) 0.5 mV [facility] Thresh RV Capture Amplitude (volts) 0.875 V [facility] Thresh RV Capture Duration (ms) 0.4 ms [facility] Thresh RV Sensing Amplitude (mvolts) 12.625 mV [facility] Tracking Rate (bpm) 120 {beats}/min [facility] No Panel Informationon 09-26 BLANK _ [facility] Implant Date 10/21/2020 [facility] PACEMAKER REMOTE CHECKon AV Delay Adaptive Paced Minimum (ms) 180 ms [facility] AV Delay Adaptive Sensed Minimum (ms) 150 ms [facility] AV Delay Adaptive Status DISABLED [facility] Battery Voltage (volts) 3.06 V [facility] Pavan RA Pacing Amplitude (volts) 1.5 V [facility] Pavan RA Pacing Polarity BI [facility] Pavan RA Pacing Pulse Width (ms) 0.4 ms [facility] Pavan RA Sensing Amplitude (mvolts) 0.3 mV [facility] Pavan RA Sensing Blanking Period (ms) 150 ms [facility] Pavan RA Sensing Polarity BI [facility] Pavan RA Sensing Refractory Period (ms) Auto [facility] Pavan RV Pacing Amplitude (volts) 2 V [facility] Pavan RV Pacing Polarity BI [facility] Pavan RV Pacing Pulse Width (ms) 0.4 ms [facility] Pavan RV Sensing Amplitude (mvolts) 0.9 mV [facility] Pavan RV Sensing Blanking Period (ms) 200 ms [facility] Pavan RV Sensing Polarity BI [facility] Hysteresis Rate (bpm) DISABLED [facility] Lead1 Mfg MDT [facility] Lead2 Mfg MDT [facility] Location RV [facility] Location RA [facility] Lower Rate (bpm) 60 {beats}/min [facility] Max Sensor Rate (bmp) 120 {beats}/min [facility] Model [id number] [place] XT DR MRI Cl [facility] Model 3830 SelectSecure MR I SureScan [facility] Model 5076 CapSureFix Novus [facility] PM-Device Mfg MDT [facility] PM-Percent Pacing (A) 0.09 % [facility] PM-Percent Pacing (V) 23.44 % [facility] PM-PMT Intervention ENABLED [facility] PM-PVC Intervention ENABLED [facility] PM-Rate Modulation Acceleration Reaction 30 s [facility] PM-Rate Modulation ADL Rate (bpm) 95 {beats}/min [facility] PM-Rate Modulation Deceleration Exercise [facility] PM-Rate Modulation [place] 3 [facility] PM-Rate Modulation Threshold Low [facility] RA Bipolar Impedance ohms 532 ohm [facility] RA Unipolar Impedance [place] 304 ohm [facility] RV Bipolar Impedance ohms 418 ohm [facility] RV Unipolar Impedance 342 ohm [facility] Serial Number [id number] [facility] Serial Number [id number] [facility] Serial Number [id number] [facility] Thresh RA Capture Amplitude (volts) 0.75 V [facility] Thresh RA Capture Duration (ms) 0.4 ms [facility] Thresh RA Sensing Amplitude (mvolts) 0.625 mV [facility] Thresh RV Capture Amplitude (volts) 0.875 V [facility] Thresh RV Capture Duration (ms) 0.4 ms [facility] Thresh RV Sensing Amplitude (mvolts) 12 mV [facility] Tracking Rate (bpm) 120 {beats}/min [facility] PROGRESSon 03-08-2019 PROGRESS HNO ID: [id number] Author: Sheree Logan (Rt) Manolo Elaine Service: Radiology Author Type: Budget Accountant Type: Progress Notes Filed: 03/08/2019 2:55 PM [...] RT Echo March 08, 2019 2:55 PM [facility] CHEST 2V FRONTAL/LATon XR [...] atrial fibrillation (HCC) MQ: XC2_5 Comparison: 2016 , 2013 RESULT: Cardiomegaly. DJD. Poor inspiration producing crowded lung markings.. COPD. Prominent derrick secondary pulmonary vascular prominence. Chronic interstitial changes rosas. IMPRESSION: COPD. Chronic interstitial disease. Possible 5 mm nodule right lung base. Follow-up recommended Holistic Nutritionist: JAMES Transcribe Date/Time: Mar 08 2019 4:59P Dictated by : EMMA PERALTA DO This examination was interpreted and the report reviewed and electronically signed by: EMMA PERALTA DO on Mar 08 2019 5:03PM EST [id number] [facility] MRA BRAIN W/O CONTRASTon MRA BRAIN W/O CONTRAST Performed at [facility] APPROVED BY: Deangelo Johnson MD [facility] The patient was referred to [facility] 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 However, the mobile MRI scanner was not capable of performing the needed MR angiographic sequences. All charges related to the examination was canceled. IMPRESSION: Nondiagnostic MRA study as noted with all charges canceled. The study is to be rescheduled at [facility] main campus. Normal [facility] Vital Signs Date Time Vital Sign Value Performing Clinician Jabari rogers 05-10-2025 11:34-0500 Body temperature 97.4 [degF] Deysi Collazo OCC MED PHYSICIAN-C Work Phone: [facility] 05-10-2025 11:34-0500 Diastolic blood pressure 97 mm[Hg] Deysi Collazo NP-C Work Phone: [facility] 05-10-2025 11:34-0500 Heart rate 84 /min Deysi Collazo NP-C Work Phone: [facility] 05-10-2025 11:34-0500 Respiratory rate 18 /min Deysi Haagen OCC MED PHYSICIAN-C Work Phone: 9(405)109-848637 [place] [address] 05-10-2025 11:34-0500 Systolic blood pressure 149 mm[Hg] Deysi Haagen OCC MED PHYSICIAN-C Work Phone: 7(780)125-859137 [place] [address] 05-07-2025 07:36-0500 Body mass index (BMI) [Ratio] 24 kg/m2 Deysi Haagen OCC MED PHYSICIAN-C Work Phone: 2(721)812-188637 [place] [address] 05-07-2025 07:36-0500 Body weight 61.68 kg Deysi Haagen OCC MED PHYSICIAN-C Work Phone: 5(517)488-328137 [place] [address] 05-07-2025 07:36-0500 Diastolic blood pressure 78 mm[Hg] Deysi Haagen OCC MED PHYSICIAN-C Work Phone: 4(447)250-228537 [place] [address] 05-07-2025 07:36-0500 Heart rate 86 /min Deysi Haagen OCC MED PHYSICIAN-C Work Phone: 7(201)242-101037 [place] [address] 05-07-2025 07:36-0500 Respiratory rate 18 /min Deysi Haagen OCC MED PHYSICIAN-C Work Phone: 6(215)108-897637 [place] [address] 05-07-2025 07:36-0500 SaO2% (BldA) [Mass fraction] 98 % Deysi Haagen OCC MED PHYSICIAN-C Work Phone: 4(609)318-761737 [place] [address] 05-07-2025 07:36-0500 Systolic blood pressure 137 mm[Hg] Deysi Haagen OCC MED PHYSICIAN-C Work Phone: 6(765)932-038437 [place] [address] 05-03-2025 11:15-0400 Body temperature 98.1 [degF] Deysi Haagen OCC MED PHYSICIAN-C Work Phone: 3(351)293-069637 [place] [address] 05-03-2025 11:15-0400 Diastolic blood pressure 81 mm[Hg] Deysi Haagen OCC MED PHYSICIAN-C Work Phone: 6(890)638-591237 [place] [address] 05-03-2025 11:15-0400 Heart rate 98 /min Deysi Haagen OCC MED PHYSICIAN-C Work Phone: 5(124)584-857437 [place] [address] 05-03-2025 11:15-0400 Respiratory rate 17 /min Deysi Haagen OCC MED PHYSICIAN-C Work Phone: 1(993)083-629537 [place] [address] 05-03-2025 11:15-0400 Systolic blood pressure 148 mm[Hg] Deysi Haagen OCC MED PHYSICIAN-C Work Phone: 4(990)738-020737 [place] [address] 04-24-2025 15:30-0400 Body height 160.02 cm Deysi Haagen OCC MED PHYSICIAN-C Work Phone: 0(466)333-579737 [place] [address] 04-24-2025 15:30-0400 Body mass index (BMI) [Ratio] 24.3 kg/m2 Deysi Haagen OCC MED PHYSICIAN-C Work Phone: 9(274)921-703137 [place] [address] 04-24-2025 15:30-0400 Body temperature 97.5 [degF] Deysi Haagen OCC MED PHYSICIAN-C Work Phone: 8(327)020-719537 [place] [address] 04-24-2025 15:30-0400 Body weight 62.36 kg Deysi Haagen OCC MED PHYSICIAN-C Work Phone: 5(300)994-824037 [place] [address] 04-24-2025 15:30-0400 Diastolic blood pressure 73 mm[Hg] Deysi Haagen OCC MED PHYSICIAN-C Work Phone: 4(726)267-163237 [place] [address] 04-24-2025 15:30-0400 Heart rate 83 /min Deysi Haagen OCC MED PHYSICIAN-C Work Phone: 8(476)639-973837 [place] [address] 04-24-2025 15:30-0400 Respiratory rate 16 /min Deysi Haagen OCC MED PHYSICIAN-C Work Phone: 7(946)478-413137 [place] [address] 04-24-2025 15:30-0400 SaO2% (BldA) [Mass fraction] 95 % Deysi Haagen OCC MED PHYSICIAN-C Work Phone: 1(154)720-531837 [place] [address] 04-24-2025 15:30-0400 Systolic blood pressure 152 mm[Hg] Deysi Haagen OCC MED PHYSICIAN-C Work Phone: 5(073)270-493437 [place] [address] 03-29-2025 11:05-0400 Body temperature 98.2 [degF] Deysi Haagen OCC MED PHYSICIAN-C Work Phone: 9(329)363-138537 [place] [address] 03-29-2025 11:05-0400 Diastolic blood pressure 67 mm[Hg] Deysi Haagen OCC MED PHYSICIAN-C Work Phone: 0(314)700-826837 [place] [address] 03-29-2025 11:05-0400 Heart rate 89 /min Deysi Haagen OCC MED PHYSICIAN-C Work Phone: 6(113)299-855837 [place] [address] 03-29-2025 11:05-0400 Respiratory rate 16 /min Deysi Haagen OCC MED PHYSICIAN-C Work Phone: 2(482)796-450837 [place] [address] 03-29-2025 11:05-0400 SaO2% (BldA) [Mass fraction] 100 % Deysi Haagen OCC MED PHYSICIAN-C Work Phone: 1(874)422-256337 [place] [address] 03-29-2025 11:05-0400 Systolic blood pressure 145 mm[Hg] Deysi Haagen OCC MED PHYSICIAN-C Work Phone: 9(268)755-246037 [place] [address] 03-27-2025 16:35-0400 Body temperature 96.9 [degF] Deysi Haagen OCC MED PHYSICIAN-C Work Phone: 8(582)123-689137 [place] [address] 03-27-2025 16:35-0400 Diastolic blood pressure 48 mm[Hg] Deysi Haagen OCC MED PHYSICIAN-C Work Phone: 4(082)972-410837 [place] [address] 03-27-2025 16:35-0400 Heart rate 74 /min Deysi Haagen OCC MED PHYSICIAN-C Work Phone: 0(307)565-247037 [place] [address] 03-27-2025 16:35-0400 Respiratory rate 16 /min Deysi Haagen OCC MED PHYSICIAN-C Work Phone: 1(506)520-957837 [place] [address] 03-27-2025 16:35-0400 SaO2% (BldA) [Mass fraction] 100 % Deysi Haagen OCC MED PHYSICIAN-C Work Phone: 0(006)677-723337 [place] [address] 03-27-2025 16:35-0400 Systolic blood pressure 144 mm[Hg] Deysi Haagen OCC MED PHYSICIAN-C Work Phone: 3(799)925-025437 [place] [address] 03-27-2025 14:21-0400 Body height 160.02 cm Deysi Haagen OCC MED PHYSICIAN-C Work Phone: 8(791)297-947937 [place] [address] 03-27-2025 14:21-0400 Body mass index (BMI) [Ratio] 23.3 kg/m2 Deysi Haagen OCC MED PHYSICIAN-C Work Phone: 9(944)893-815537 [place] [address] 03-27-2025 14:21-0400 Body weight 59.87 kg Deysi Haagen OCC MED PHYSICIAN-C Work Phone: 7(451)737-502437 [place] [address] 03-22-2025 03:56-0400 Body temperature 98 [degF] Deysi Haagen OCC MED PHYSICIAN-C Work Phone: 4(514)123-349137 [place] [address] 03-22-2025 03:56-0400 Diastolic blood pressure 65 mm[Hg] Deysi Haagen OCC MED PHYSICIAN-C Work Phone: 6(638)581-908137 [place] [address] 03-22-2025 03:56-0400 Heart rate 81 /min Deysi Haagen OCC MED PHYSICIAN-C Work Phone: 5(085)238-150637 [place] [address] 03-22-2025 03:56-0400 Respiratory rate 18 /min Deysi Haagen OCC MED PHYSICIAN-C Work Phone: 8(319)661-978537 [place] [address] 03-22-2025 03:56-0400 SaO2% (BldA) [Mass fraction] 99 % Deysi Haagen OCC MED PHYSICIAN-C Work Phone: 6(508)099-921337 [place] [address] 03-22-2025 03:56-0400 Systolic blood pressure 161 mm[Hg] Deysi Haagen OCC MED PHYSICIAN-C Work Phone: 2(479)082-177437 [place] [address] 03-22-2025 03:36-0400 Body height 160.02 cm Deysi Haagen OCC MED PHYSICIAN-C Work Phone: 1(431)279-783337 [place] [address] 03-22-2025 03:36-0400 Body mass index (BMI) [Ratio] 24.9 kg/m2 Deysi Haagen OCC MED PHYSICIAN-C Work Phone: 6(515)114-533837 [place] [address] 03-22-2025 03:36-0400 Body weight 63.8 kg Deysi Haagen OCC MED PHYSICIAN-C Work Phone: 3(949)935-041837 [place] [address] 03-20-2025 12:20-0400 Body temperature 97.2 [degF] Deysi Haagen OCC MED PHYSICIAN-C Work Phone: 4(526)672-054537 [place] [address] 03-20-2025 12:20-0400 Diastolic blood pressure 56 mm[Hg] Deysi Haagen OCC MED PHYSICIAN-C Work Phone: 9(601)965-131037 [place] [address] 03-20-2025 12:20-0400 Heart rate 82 /min Deysi Haagen OCC MED PHYSICIAN-C Work Phone: 4(339)455-674137 [place] [address] 03-20-2025 12:20-0400 Respiratory rate 16 /min Deysi Haagen OCC MED PHYSICIAN-C Work Phone: 3(667)319-948837 [place] [address] 03-20-2025 12:20-0400 SaO2% (BldA) [Mass fraction] 100 % Deysi Haagen OCC MED PHYSICIAN-C Work Phone: 5(022)488-032637 [place] [address] 03-20-2025 12:20-0400 Systolic blood pressure 125 mm[Hg] Deysi Haagen OCC MED PHYSICIAN-C Work Phone: 5(539)844-024137 [place] [address] 03-20-2025 09:24-0400 Body mass index (BMI) [Ratio] 22.8 kg/m2 Deysi Haagen OCC MED PHYSICIAN-C Work Phone: 0(075)970-207637 [place] [address] 03-20-2025 09:24-0400 Body weight 58.51 kg Deysi Haagen OCC MED PHYSICIAN-C Work Phone: 8(816)681-414637 [place] [address] 03-15-2025 11:36-0400 Body temperature 96.4 [degF] Deysi Haagen OCC MED PHYSICIAN-C Work Phone: 9(920)885-056437 [place] [address] 03-15-2025 11:36-0400 Diastolic blood pressure 57 mm[Hg] Deysi Haagen OCC MED PHYSICIAN-C Work Phone: 9(853)481-260437 [place] [address] 03-15-2025 11:36-0400 Heart rate 87 /min Deysi Haagen OCC MED PHYSICIAN-C Work Phone: 4(749)032-763237 [place] [address] 03-15-2025 11:36-0400 Respiratory rate 14 /min Deysi Haagen OCC MED PHYSICIAN-C Work Phone: 2(243)193-815637 [place] [address] 03-15-2025 11:36-0400 Systolic blood pressure 133 mm[Hg] Deysi Haagen OCC MED PHYSICIAN-C Work Phone: 1(833)635-311754 [place] [address] 03-13-2025 14:06-0400 Body height 160.02 cm Deysi Haagen OCC MED PHYSICIAN-C Work Phone: 0(581)851-387137 [place] [address] 03-13-2025 14:06-0400 Body mass index (BMI) [Ratio] 23.6 kg/m2 Deysi Haagen OCC MED PHYSICIAN-C Work Phone: 4(969)405-468237 [place] [address] 03-13-2025 14:06-0400 Body temperature 96.6 [degF] Deysi Haagen OCC MED PHYSICIAN-C Work Phone: 3(308)099-085037 [place] [address] 03-13-2025 14:06-0400 Body weight 60.55 kg Deysi Haagen OCC MED PHYSICIAN-C Work Phone: 7(016)501-652637 [place] [address] 03-13-2025 14:06-0400 Diastolic blood pressure 71 mm[Hg] Deysi Haagen OCC MED PHYSICIAN-C Work Phone: 7(429)920-817137 [place] [address] 03-13-2025 14:06-0400 Heart rate 91 /min Deysi Haagen OCC MED PHYSICIAN-C Work Phone: 6(484)624-544337 [place] [address] 03-13-2025 14:06-0400 Respiratory rate 16 /min Deysi Haagen OCC MED PHYSICIAN-C Work Phone: 9(997)260-148437 [place] [address] 03-13-2025 14:06-0400 SaO2% (BldA) [Mass fraction] 93 % Deysi Haagen OCC MED PHYSICIAN-C Work Phone: 1(811)574-308837 [place] [address] 03-13-2025 14:06-0400 Systolic blood pressure 152 mm[Hg] Deysi Haagen OCC MED PHYSICIAN-C Work Phone: 3(591)125-361737 [place] [address] 03-08-2025 09:53-0400 Body temperature 96.8 [degF] Deysi Haagen OCC MED PHYSICIAN-C Work Phone: 5(916)677-195637 [place] [address] 03-08-2025 09:53-0400 Diastolic blood pressure 40 mm[Hg] Deysi Haagen OCC MED PHYSICIAN-C Work Phone: 9(327)361-957337 [place] [address] 03-08-2025 09:53-0400 Heart rate 75 /min Deysi Haagen OCC MED PHYSICIAN-C Work Phone: [facility] 03-08-2025 09:53-0400 Respiratory rate 18 /min Deysi Haagen OCC MED PHYSICIAN-C Work Phone: [facility] 03-08-2025 09:53-0400 Systolic blood pressure 145 mm[Hg] Deysi Haagen OCC MED PHYSICIAN-C Work Phone: [facility] 03-01-2025 09:12-0400 Body temperature 97.1 [degF] Deysi Haagen OCC MED PHYSICIAN-C Work Phone: 7(683)226-567637 [place] [address] 03-01-2025 09:12-0400 Diastolic blood pressure 65 mm[Hg] Deysi Haagen OCC MED PHYSICIAN-C Work Phone: 6(706)878-960937 [place] [address] 03-01-2025 09:12-0400 Heart rate 79 /min Deysi Haagen OCC MED PHYSICIAN-C Work Phone: 6(469)174-558637 [place] [address] 03-01-2025 09:12-0400 Respiratory rate 18 /min Deysi Haagen OCC MED PHYSICIAN-C Work Phone: 9(056)649-039237 [place] [address] 03-01-2025 09:12-0400 Systolic blood pressure 125 mm[Hg] Deysi Haagen OCC MED PHYSICIAN-C Work Phone: 4(874)065-675937 [place] [address] 02-16-2025 17:24-0400 Body temperature 98 [degF] Deysi Haagen OCC MED PHYSICIAN-C Work Phone: 0(920)654-622154 [place] [address] 02-16-2025 17:24-0400 Diastolic blood pressure 72 mm[Hg] Deysi Haagen OCC MED PHYSICIAN-C Work Phone: 1(162)021-348754 [place] [address] 02-16-2025 17:24-0400 Heart rate 75 /min Deysi Haagen OCC MED PHYSICIAN-C Work Phone: 6(831)064-904954 [place] [address] 02-16-2025 17:24-0400 Respiratory rate 19 /min Deysi Haagen OCC MED PHYSICIAN-C Work Phone: 7(390)583-030054 [place] [address] 02-16-2025 17:24-0400 SaO2% (BldA) [Mass fraction] 100 % Deysi Haagen OCC MED PHYSICIAN-C Work Phone: 2(801)023-601937 [place] [address] 02-16-2025 17:24-0400 Systolic blood pressure 154 mm[Hg] Deysi Haagen OCC MED PHYSICIAN-C Work Phone: 6(635)309-135637 [place] [address] 02-16-2025 12:09-0400 Body mass index (BMI) [Ratio] 25.8 kg/m2 Deysi Haagen OCC MED PHYSICIAN-C Work Phone: 9(925)397-979637 [place] [address] 02-16-2025 12:09-0400 Body weight 66.22 kg Deysi Haagen OCC MED PHYSICIAN-C Work Phone: 9(527)971-257337 [place] [address] 02-16-2025 11:26-0400 Body height 160.02 cm Deysi Haagen OCC MED PHYSICIAN-C Work Phone: 3(909)456-422837 [place] [address] 02-16-2025 11:26-0400 Inhaled oxygen flow rate 2 L/min Deysi Haagen OCC MED PHYSICIAN-C Work Phone: 7(208)301-859937 [place] [address] 02-05-2025 08:57-0400 Body height 160.02 cm Deysi Haagen OCC MED PHYSICIAN-C Work Phone: 9(238)625-640737 [place] [address] 02-05-2025 08:57-0400 Body mass index (BMI) [Ratio] 24.7 kg/m2 Deysi Haagen OCC MED PHYSICIAN-C Work Phone: 5(727)285-705337 [place] [address] 02-05-2025 08:57-0400 Body weight 63.5 kg Deysi Haagen OCC MED PHYSICIAN-C Work Phone: 4(580)800-482637 [place] [address] 02-05-2025 08:57-0400 Diastolic blood pressure 64 mm[Hg] Deysi Haagen OCC MED PHYSICIAN-C Work Phone: 3(304)707-824537 [place] [address] 02-05-2025 08:57-0400 Heart rate 77 /min Deysi Haagen OCC MED PHYSICIAN-[facility] Work Phone: 8(066)[phone] [place] [address] 02-05-2025 08:57-0400 Respiratory rate 16 /min Deysi Haagen [facility] [employer] Work Phone: 6(000)[phone] [place] [address] 02-05-2025 08:57-0400 Systolic blood pressure 143 mm[Hg] Deysi Haagen [facility] [employer] PH[employer] Work Phone: 1(627)941-382137 [place] [address] 01-11-2025 10:44-0400 Heart rate 71 /min Deysi Haagen [facility] [employer] [facility] Work Phone: 1(233)232-943237 [place] [address] 01-11-2025 08:59-0400 Body temperature 98.1 [degF] Deysi [facility] OCC MED PHYSICIAN-C Work Phone: 2(483)091-749237 [place] [address] 01-11-2025 08:59-0400 Diastolic blood pressure 55 mm[Hg] Deysi Haagen OCC MED PHYSICIAN-C Work Phone: 7(998)478-999437 [place] [address] 01-11-2025 08:59-0400 Respiratory rate 18 /min Deysi Haagen OCC MED PHYSICIAN-C Work Phone: 8(334)334-758737 [place] [address] 01-11-2025 08:59-0400 SaO2% (BldA) [Mass fraction] 100 % Deysi Haagen OCC MED PHYSICIAN-C Work Phone: 3(297)271-288037 [place] [address] 01-11-2025 08:59-0400 Systolic blood pressure 153 mm[Hg] Deysi Haagen OCC MED PHYSICIAN-C Work Phone: 8(074)[phone] [place] [address] 01-11-2025 05:50-0400 Body mass index (BMI) [Ratio] 28 kg/m2 Deysi Haagen OCC MED PHYSICIAN-C Work Phone: 3(166)704-548837 [place] [address] 01-11-2025 05:50-0400 Body weight 71.8 kg Deysi Haagen OCC MED PHYSICIAN-C Work Phone: 3(411)031-876737 [place] [address] 01-08-2025 10:03-0400 Body height 160.02 cm Deysi Haagen OCC MED PHYSICIAN-C Work Phone: 4(356)674-317237 [place] [address] 01-07-2025 17:11-0400 Diastolic blood pressure 66 mm[Hg] Deysi Haagen OCC MED PHYSICIAN-C Work Phone: 3(233)437-935037 [place] [address] 01-07-2025 17:11-0400 Heart rate 75 /min Deysi Haagen OCC MED PHYSICIAN-C Work Phone: 1(087)212-806637 [place] [address] 01-07-2025 17:11-0400 Respiratory rate 16 /min Deysi Haagen OCC MED PHYSICIAN-C Work Phone: [facility] 01-07-2025 17:11-0400 SaO2% (BldA) [Mass fraction] 100 % Deysi Collazo OCC MED PHYSICIAN-C Work Phone: [facility] 01-07-2025 17:11-0400 Systolic blood pressure 154 mm[Hg] Deysi Hadon OCC MED PHYSICIAN-C Work Phone: [facility] 01-07-2025 16:28-0400 Body temperature 97.7 [degF] Deysigladys Collazo OCC MED PHYSICIAN-C Work Phone: [facility] 01-07-2025 13:27-0400 Body mass index (BMI) [Ratio] 27.5 kg/m2 Deysi Hadon OCC MED PHYSICIAN-C Work Phone: [facility] 01-07-2025 13:27-0400 Body weight 70.48 kg Deysi Anatoliydon OCC MED PHYSICIAN-C Work Phone: [facility] 01-07-2025 12:47-0400 Body height 160.02 cm Deysi Copedon OCC MED PHYSICIAN-C Work Phone: [facility] 01-01-2025 10:29-0400 Body height 157.5 cm Carla Burdick MD Work Phone: [facility] 01-01-2025 10:29-0400 Body mass index (BMI) [Ratio] 27.18 kg/m2 Carla Burdick MD Work Phone: [facility] 01-01-2025 10:29-0400 Body weight 67.41 kg Carla Burdick MD Work Phone: [facility] 01-01-2025 10:29-0400 Diastolic blood pressure 60 mm[Hg] Carla Burdick MD Work Phone: [facility] 01-01-2025 10:29-0400 Heart rate 84 /min Carla Burdick MD Work Phone: [facility] 01-01-2025 10:29-0400 Respiratory rate 18 /min Carla Burdick MD Work Phone: [facility] 01-01-2025 10:29-0400 SaO2% (BldA) [Mass fraction] 100 % Carla Burdick MD Work Phone: [facility] 01-01-2025 10:29-0400 Systolic blood pressure 156 mm[Hg] Carla Burdick MD Work Phone: [facility] 12-20-2024 08:29-0400 Body mass index (BMI) [Ratio] 27.18 kg/m2 Lars Silva DO Work Phone: [facility] 12-20-2024 08:29-0400 Body weight 67.4 kg Lars Silva DO Work Phone: [facility] 12-20-2024 08:29-0400 Diastolic blood pressure 75 mm[Hg] Lars Silva DO Work Phone: [facility] 12-20-2024 08:29-0400 Heart rate 77 /min Lars Silva DO Work Phone: [facility] 12-20-2024 08:29-0400 SaO2% (BldA) [Mass fraction] 100 % Lars Silva DO Work Phone: [facility] 12-20-2024 08:29-0400 Systolic blood pressure 154 mm[Hg] Lars Jonesle DO Work Phone: [facility] 12-19-2024 11:38-0400 Diastolic blood pressure 54 mm[Hg] Albin Aurin ATHLETIC AGENT.SCRAP CHARGER Work Phone: [facility] Comment on above: post IV lasix 12-19-2024 11:38-0400 Systolic blood pressure 157 mm[Hg] Albin Aurin ATHLETIC AGENT.SCRAP CHARGER Work Phone: [facility] Comment on above: post IV lasix 12-19-2024 10:56-0400 Body mass index (BMI) [Ratio] 26.34 kg/m2 Albin Aurin ATHLETIC AGENT.SCRAP CHARGER Work Phone: [facility] 12-19-2024 10:56-0400 Body weight 65.32 kg Albin Gu ATHLETIC AGENT.SCRAP CHARGER Work Phone: [facility] 12-19-2024 10:56-0400 Heart rate 79 /min Albin Gu ATHLETIC AGENT.SCRAP CHARGER Work Phone: [facility] 12-19-2024 10:56-0400 SaO2% (BldA) [Mass fraction] 99 % Albin Gu ATHLETIC AGENT.SCRAP CHARGER Work Phone: [facility] 11-20-2024 08:06-0400 Body height 157.5 cm Carla Burdick MD Work Phone: [facility] 11-20-2024 08:06-0400 Body mass index (BMI) [Ratio] 26.3 kg/m2 Carla Burdick MD Work Phone: [facility] 11-20-2024 08:06-0400 Body weight 65.23 kg Carla Burdick MD Work Phone: [facility] 11-20-2024 08:06-0400 Diastolic blood pressure 62 mm[Hg] Carla Burdick MD Work Phone: [facility] 11-20-2024 08:06-0400 Heart rate 84 /min Carla Burdick MD Work Phone: [facility] 11-20-2024 08:06-0400 Respiratory rate 12 /min Carla Burdick MD Work Phone: [facility] 11-20-2024 08:06-0400 SaO2% (BldA) [Mass fraction] 99 % Carla Burdick MD Work Phone: [facility] 11-20-2024 08:06-0400 Systolic blood pressure 154 mm[Hg] Carla Burdick MD Work Phone: [facility] 11-06-2024 15:03-0400 Body height 157.5 cm Carla Burdick MD Work Phone: [facility] 11-06-2024 15:03-0400 Body mass index (BMI) [Ratio] 27.8 kg/m2 Carla Burdick MD Work Phone: [facility] 11-06-2024 15:03-0400 Body weight 68.95 kg Carla Burdick MD Work Phone: [facility] 11-06-2024 15:03-0400 Diastolic blood pressure 54 mm[Hg] Carla Burdick MD Work Phone: [facility] 11-06-2024 15:03-0400 Heart rate 68 /min Carla Burdick MD Work Phone: [facility] 11-06-2024 15:03-0400 Respiratory rate 12 /min Carla Burdick MD Work Phone: [facility] 11-06-2024 15:03-0400 SaO2% (BldA) [Mass fraction] 100 % Carla Burdick MD Work Phone: [facility] 11-06-2024 15:03-0400 Systolic blood pressure 134 mm[Hg] Carla Burdick MD Work Phone: [facility] 11-03-2024 10:06-0400 Diastolic blood pressure 44 mm[Hg] Albin Aurin ATHLETIC AGENT.SCRAP CHARGER Work Phone: [facility] 11-03-2024 10:06-0400 Systolic blood pressure 121 mm[Hg] Albin Aurin ATHLETIC AGENT.SCRAP CHARGER Work Phone: [facility] 11-03-2024 08:56-0400 Body mass index (BMI) [Ratio] 26.89 kg/m2 Albin Aurin ATHLETIC AGENT.SCRAP CHARGER Work Phone: [facility] 11-03-2024 08:56-0400 Body weight 66.68 kg Albin Aurin ATHLETIC AGENT.SCRAP CHARGER Work Phone: [facility] 11-03-2024 08:56-0400 Heart rate 66 /min Albin Aurin ATHLETIC AGENT.SCRAP CHARGER Work Phone: [facility] 11-03-2024 08:56-0400 SaO2% (BldA) [Mass fraction] 100 % Albin Aurin ATHLETIC AGENT.SCRAP CHARGER Work Phone: [facility] 10-31-2024 11:09-0400 Body mass index (BMI) [Ratio] 25.97 kg/m2 Shaye Domingo APRN.SCRAP CHARGER Work Phone: [facility] 10-31-2024 11:09-0400 Body weight 64.41 kg Shaye Domingo APRN.SCRAP CHARGER Work Phone: [facility] 10-31-2024 11:09-0400 Diastolic blood pressure 68 mm[Hg] Shaye Domingo APRN.SCRAP CHARGER Work Phone: [facility] 10-31-2024 11:09-0400 Heart rate 84 /min Shaye Domingo APRN.SCRAP CHARGER Work Phone: [facility] 10-31-2024 11:09-0400 Systolic blood pressure 147 mm[Hg] Shaye Domingo APRN.SCRAP CHARGER Work Phone: [facility] 04-07-2024 09:30-0400 Body mass index (BMI) [Ratio] 25.06 kg/m2 Albin Gu APRN.SCRAP CHARGER Work Phone: [facility] 04-07-2024 09:30-0400 Body weight 62.14 kg Albin Gu APRN.SCRAP CHARGER Work Phone: [facility] 04-07-2024 09:30-0400 Diastolic blood pressure 47 mm[Hg] Albin Gu APRN.SCRAP CHARGER Work Phone: [facility] 04-07-2024 09:30-0400 Heart rate 91 /min Albin Gu APRN.SCRAP CHARGER Work Phone: [facility] 04-07-2024 09:30-0400 SaO2% (BldA) [Mass fraction] 98 % Albin Gu ATHLETIC AGENT.SCRAP CHARGER Work Phone: [facility] 04-07-2024 09:30-0400 Systolic blood pressure 142 mm[Hg] Albin Gu APRN.SCRAP CHARGER Work Phone: [facility] 01-17-2024 09:50-0400 Body height 157.5 cm Carla Burdick MD Work Phone: [facility] 01-17-2024 09:50-0400 Body mass index (BMI) [Ratio] 26.92 kg/m2 Carla Burdick MD Work Phone: [facility] 01-17-2024 09:50-0400 Body weight 66.77 kg Carla Burdick MD Work Phone: [facility] 01-17-2024 09:50-0400 Diastolic blood pressure 59 mm[Hg] Carla Burdick MD Work Phone: [facility] 01-17-2024 09:50-0400 Heart rate 64 /min Carla Burdick MD Work Phone: [facility] 01-17-2024 09:50-0400 SaO2% (BldA) [Mass fraction] 99 % Carla Burdick MD Work Phone: [facility] 01-17-2024 09:50-0400 Systolic blood pressure 157 mm[Hg] Carla Burdick MD Work Phone: [facility] 12-07-2023 11:46-0400 Diastolic blood pressure 76 mm[Hg] Deysi Haagen ATHLETIC AGENT.SCRAP CHARGER Work Phone: [facility] 12-07-2023 11:46-0400 Heart rate 68 /min Deysi Haagen ATHLETIC AGENT.SCRAP CHARGER Work Phone: [facility] 12-07-2023 11:46-0400 Respiratory rate 16 /min Deysi Haagen ATHLETIC AGENT.SCRAP CHARGER Work Phone: [facility] 12-07-2023 11:46-0400 SaO2% (BldA) [Mass fraction] 97 % Deysi Haagen ATHLETIC AGENT.SCRAP CHARGER Work Phone: [facility] 12-07-2023 11:46-0400 Systolic blood pressure 128 mm[Hg] Deysi Haagen ATHLETIC AGENT.SCRAP CHARGER Work Phone: [facility] 11-25-2023 10:42-0400 Diastolic blood pressure 37 mm[Hg] Albin Gu ATHLETIC AGENT.SCRAP CHARGER Work Phone: [facility] 11-25-2023 10:42-0400 Systolic blood pressure 160 mm[Hg] Albin Quinteroin ATHLETIC AGENT.SCRAP CHARGER Work Phone: [facility] 11-25-2023 10:00-0400 Body mass index (BMI) [Ratio] 26.89 kg/m2 Albin Aurin ATHLETIC AGENT.SCRAP CHARGER Work Phone: [facility] 11-25-2023 10:00-0400 Body weight 66.68 kg Albin Aurin ATHLETIC AGENT.SCRAP CHARGER Work Phone: [facility] 11-25-2023 10:00-0400 Heart rate 60 /min Albin Quinteroin ATHLETIC AGENT.SCRAP CHARGER Work Phone: [facility] 11-25-2023 10:00-0400 SaO2% (BldA) [Mass fraction] 98 % Albin Quinteroin ATHLETIC AGENT.SCRAP CHARGER Work Phone: [facility] 11-22-2023 09:09-0400 Body mass index (BMI) [Ratio] 27.44 kg/m2 Deysi Hadon ATHLETIC AGENT.SCRAP CHARGER Work Phone: [facility] 11-22-2023 09:09-0400 Body weight 68.04 kg Deysi Collazo ATHLETIC AGENT.SCRAP CHARGER Work Phone: [facility] 11-22-2023 09:09-0400 Diastolic blood pressure 76 mm[Hg] Deysi Haagen ATHLETIC AGENT.SCRAP CHARGER Work Phone: [facility] 11-22-2023 09:09-0400 Heart rate 67 /min Deysi Haagen ATHLETIC AGENT.SCRAP CHARGER Work Phone: [facility] 11-22-2023 09:09-0400 Respiratory rate 16 /min Deysi Haagen ATHLETIC AGENT.SCRAP CHARGER Work Phone: [facility] 11-22-2023 09:09-0400 SaO2% (BldA) [Mass fraction] 98 % Deysi Haagen ATHLETIC AGENT.SCRAP CHARGER Work Phone: [facility] 11-22-2023 09:09-0400 Systolic blood pressure 128 mm[Hg] Deysi Haagen ATHLETIC AGENT.SCRAP CHARGER Work Phone: [facility] 11-08-2023 16:36-0400 Body mass index (BMI) [Ratio] 29.98 kg/m2 Bere Boykin ATHLETIC AGENT.SCRAP CHARGER Work Phone: [facility] 11-08-2023 16:36-0400 Body weight 73.17 kg Bere Boykin ATHLETIC AGENT.C OCC MED PHYSICIAN Work Phone: [facility] 11-08-2023 16:36-0400 Diastolic blood pressure 70 mm[Hg] Bere Boykin ATHLETIC AGENT.SCRAP CHARGER Work Phone: [facility] 11-08-2023 16:36-0400 Heart rate 94 /min Bere Boykin ATHLETIC AGENT.C OCC MED PHYSICIAN Work Phone: [facility] 11-08-2023 16:36-0400 SaO2% (BldA) [Mass fraction] 95 % Bere Boykin ATHLETIC AGENT.SCRAP CHARGER Work Phone: [facility] 11-08-2023 16:36-0400 Systolic blood pressure 156 mm[Hg] Bere Boykin ATHLETIC AGENT.SCRAP CHARGER Work Phone: [facility] 11-04-2023 08:08-0400 Body mass index (BMI) [Ratio] 29.74 kg/m2 NA Le PA-C Work Phone: [facility] 11-04-2023 08:08-0400 Body weight 72.58 kg NA Le PA-C Work Phone: [facility] 11-04-2023 08:08-0400 Diastolic blood pressure 70 mm[Hg] NA Le PA-C Work Phone: [facility] 11-04-2023 08:08-0400 Heart rate 88 /min NA Le PA-C Work Phone: [facility] 11-04-2023 08:08-0400 Respiratory rate 20 /min NA El PA-C Work Phone: [facility] 11-04-2023 08:08-0400 SaO2% (BldA) [Mass fraction] 97 % NA El PA-C Work Phone: [facility] 11-04-2023 08:08-0400 Systolic blood pressure 130 mm[Hg] NA Le PA-C Work Phone: [facility] 10-18-2023 13:11-0400 Diastolic blood pressure 76 mm[Hg] NA Le PA-C Work Phone: [facility] 10-18-2023 13:11-0400 Systolic blood pressure 144 mm[Hg] NA Le PA-C Work Phone: [facility] 10-18-2023 13:04-0400 Body weight 75.48 kg NA Le PA-C Work Phone: [facility] 10-18-2023 13:04-0400 Heart rate 90 /min NA Le PA-C Work Phone: [facility] 10-18-2023 13:04-0400 Respiratory rate 20 /min NA Le PA-C Work Phone: [facility] 10-18-2023 13:04-0400 SaO2% (BldA) [Mass fraction] 99 % NA Le PA-C Work Phone: [facility] 10-14-2023 14:40-0400 Diastolic blood pressure 73 mm[Hg] Lars Silva DO Work Phone: [facility] 10-14-2023 14:40-0400 Heart rate 85 /min Lars Silva DO Work Phone: [facility] 10-14-2023 14:40-0400 SaO2% (BldA) [Mass fraction] 97 % Lars Silva DO Work Phone: [facility] 10-14-2023 14:40-0400 Systolic blood pressure 153 mm[Hg] Lars Silva DO Work Phone: [facility] 07-05-2023 11:19-0500 Body temperature 98.49 [degF] Bijan Cole MD Work Phone: [facility] 07-05-2023 11:19-0500 Body weight 71.31 kg Bijan Cole MD Work Phone: [facility] 07-05-2023 11:19-0500 Diastolic blood pressure 80 mm[Hg] Bijan Cole MD Work Phone: [facility] 07-05-2023 11:19-0500 Heart rate 90 /min Bijan Cole MD Work Phone: [facility] 07-05-2023 11:19-0500 Respiratory rate 20 /min Bijan Cole MD Work Phone: [facility] 07-05-2023 11:19-0500 SaO2% (BldA) [Mass fraction] 98 % Bijan Cole MD Work Phone: [facility] 07-05-2023 11:19-0500 Systolic blood pressure 158 mm[Hg] Bijan Cole MD Work Phone: [facility] 01-07-2023 08:44-0400 Body weight 65.77 kg NA Le PA-C Work Phone: [facility] 01-07-2023 08:44-0400 Diastolic blood pressure 72 mm[Hg] NA Le PA-C Work Phone: [facility] 01-07-2023 08:44-0400 Heart rate 70 /min NA Le PA-C Work Phone: [facility] 01-07-2023 08:44-0400 Respiratory rate 16 /min NA Le PA-C Work Phone: [facility] 01-07-2023 08:44-0400 SaO2% (BldA) [Mass fraction] 96 % NA Le PA-C Work Phone: [facility] 01-07-2023 08:44-0400 Systolic blood pressure 136 mm[Hg] NA Le PA-C Work Phone: [facility] 10-06-2022 09:13-0400 Body weight 66.22 kg NA Le PA-C Work Phone: [facility] 10-06-2022 09:13-0400 Diastolic blood pressure 68 mm[Hg] NA Le PA-C Work Phone: [facility] 10-06-2022 09:13-0400 Heart rate 81 /min NA Le PA-C Work Phone: [facility] 10-06-2022 09:13-0400 Respiratory rate 18 /min NA Le PA-C Work Phone: [facility] 10-06-2022 09:13-0400 SaO2% (BldA) [Mass fraction] 96 % NA Le PA-C Work Phone: [facility] 10-06-2022 09:13-0400 Systolic blood pressure 144 mm[Hg] NA Le PA-C Work Phone: [facility] 09-28-2022 09:15-0400 Body height 156.2 cm Carla Burdick MD Work Phone: [facility] 09-28-2022 09:15-0400 Body weight 68.4 kg Carla Burdick MD Work Phone: [facility] 09-28-2022 09:15-0400 Diastolic blood pressure 74 mm[Hg] Carla Burdick MD Work Phone: [facility] 09-28-2022 09:15-0400 Heart rate 78 /min Carla Burdick MD Work Phone: [facility] 09-28-2022 09:15-0400 Systolic blood pressure 128 mm[Hg] Carla Burdick MD Work Phone: [facility] 07-07-2022 08:56-0500 Body weight 65.32 kg NA Le PA-C Work Phone: [facility] 07-07-2022 08:56-0500 Diastolic blood pressure 62 mm[Hg] NA Le PA-C Work Phone: [facility] 07-07-2022 08:56-0500 Heart rate 74 /min NA Le PA-C Work Phone: [facility] 07-07-2022 08:56-0500 Respiratory rate 16 /min NA Le PA-C Work Phone: [facility] 07-07-2022 08:56-0500 SaO2% (BldA) [Mass fraction] 97 % NA Le PA-C Work Phone: [facility] 07-07-2022 08:56-0500 Systolic blood pressure 148 mm[Hg] NA Le PA-C Work Phone: [facility] 05-14-2022 09:27-0500 Body temperature 98.91 [degF] Sonny Lund MD Work Phone: [facility] 05-14-2022 09:27-0500 Body weight 68.49 kg Sonny Lund MD Work Phone: [facility] 05-14-2022 09:27-0500 Diastolic blood pressure 72 mm[Hg] Sonny Lund MD Work Phone: [facility] 05-14-2022 09:27-0500 Heart rate 84 /min Snony Lund MD Work Phone: [facility] 05-14-2022 09:27-0500 Respiratory rate 16 /min Sonny Lund MD Work Phone: [facility] 05-14-2022 09:27-0500 SaO2% (BldA) [Mass fraction] 98 % Sonny Lund MD Work Phone: [facility] 05-14-2022 09:27-0500 Systolic blood pressure 147 mm[Hg] Sonny Lund MD Work Phone: [facility] 04-28-2022 09:09-0400 Body temperature 97.3 [degF] Treatment Wstr Work Phone: [facility] 04-28-2022 09:09-0400 Diastolic blood pressure 62 mm[Hg] Treatment Wstr Work Phone: [facility] 04-28-2022 09:09-0400 Heart rate 83 /min Treatment Wstr Work Phone: [facility] 04-28-2022 09:09-0400 Systolic blood pressure 122 mm[Hg] Treatment Wstr Work Phone: [facility] 04-22-2022 10:54-0400 Body temperature 97.11 [degF] Treatment Wstr Work Phone: [facility] 04-22-2022 10:54-0400 Diastolic blood pressure 68 mm[Hg] Treatment Wstr Work Phone: [facility] 04-22-2022 10:54-0400 Heart rate 102 /min Treatment Wstr Work Phone: [facility] 04-22-2022 10:54-0400 Systolic blood pressure 135 mm[Hg] Treatment Wstr Work Phone: [facility] 04-20-2022 09:30-0400 Body temperature 97.9 [degF] Treatment Wstr Work Phone: [facility] 04-20-2022 09:30-0400 Diastolic blood pressure 61 mm[Hg] Treatment Wstr Work Phone: [facility] 04-20-2022 09:30-0400 Heart rate 98 /min Treatment Wstr Work Phone: [facility] 04-20-2022 09:30-0400 Systolic blood pressure 130 mm[Hg] Treatment Wstr Work Phone: [facility] 04-17-2022 15:31-0400 Body temperature 98.1 [degF] Treatment Wstr Work Phone: [facility] 04-17-2022 15:31-0400 Diastolic blood pressure 66 mm[Hg] Treatment Wstr Work Phone: [facility] 04-17-2022 15:31-0400 Heart rate 97 /min Treatment Wstr Work Phone: [facility] 04-17-2022 15:31-0400 SaO2% (BldA) [Mass fraction] 99 % Treatment Wstr Work Phone: [facility] 04-17-2022 15:31-0400 Systolic blood pressure 137 mm[Hg] Treatment Wstr Work Phone: [facility] 04-09-2022 11:33-0400 Body height 161.3 cm Brayan Chicas MD Work Phone: [facility] 04-09-2022 11:33-0400 Body weight 67.59 kg Brayan Chicas MD Work Phone: [facility] 04-06-2022 10:44-0400 Body weight 66.68 kg NA Le PA-C Work Phone: [facility] 04-06-2022 10:44-0400 Diastolic blood pressure 72 mm[Hg] NA Le PA-C Work Phone: [facility] 04-06-2022 10:44-0400 Heart rate 95 /min NA Le PA-C Work Phone: [facility] 04-06-2022 10:44-0400 Respiratory rate 24 /min NA Le PA-C Work Phone: [facility] 04-06-2022 10:44-0400 SaO2% (BldA) [Mass fraction] 99 % NA Le PA-C Work Phone: [facility] 04-06-2022 10:44-0400 Systolic blood pressure 148 mm[Hg] NA Le PA-C Work Phone: [facility] 03-30-2022 08:49-0400 Body weight 65.32 kg Carla Burdick MD Work Phone: [facility] 03-30-2022 08:49-0400 Diastolic blood pressure 64 mm[Hg] Carla Burdick MD Work Phone: [facility] 03-30-2022 08:49-0400 Heart rate 90 /min Carla Burdick MD Work Phone: [facility] 03-30-2022 08:49-0400 SaO2% (BldA) [Mass fraction] 100 % Carla Burdick MD Work Phone: [facility] 03-30-2022 08:49-0400 Systolic blood pressure 144 mm[Hg] Carla Burdick MD Work Phone: [facility] 03-19-2022 11:07-0400 Body weight 69.85 kg NA Le PA-C Work Phone: [facility] 03-19-2022 11:07-0400 Diastolic blood pressure 66 mm[Hg] NA Le PA-C Work Phone: [facility] 03-19-2022 11:07-0400 Heart rate 112 /min NA Le PA-C Work Phone: [facility] 03-19-2022 11:07-0400 Respiratory rate 24 /min NA Le PA-C Work Phone: [facility] 03-19-2022 11:07-0400 SaO2% (BldA) [Mass fraction] 97 % NA Le PA-C Work Phone: [facility] 03-19-2022 11:07-0400 Systolic blood pressure 148 mm[Hg] NA Le PA-C Work Phone: [facility] 03-03-2022 13:45-0400 Body height 160 cm Radha Brian ATHLETIC AGENT.SCRAP CHARGER Work Phone: [facility] 03-03-2022 13:45-0400 Body weight 63.5 kg Radha Brian ATHLETIC AGENT.SCRAP CHARGER Work Phone: [facility] 03-03-2022 13:45-0400 Diastolic blood pressure 72 mm[Hg] Radha Brian ATHLETIC AGENT.SCRAP CHARGER Work Phone: [facility] 03-03-2022 13:45-0400 Heart rate 98 /min Radha Brian ATHLETIC AGENT.SCRAP CHARGER Work Phone: [facility] 03-03-2022 13:45-0400 Systolic blood pressure 141 mm[Hg] Radha Brian ATHLETIC AGENT.SCRAP CHARGER Work Phone: [facility] 03-03-2022 13:00-0400 Diastolic blood pressure 62 mm[Hg] [facility] 03-03-2022 13:00-0400 Heart rate 105 /min [facility] 03-03-2022 13:00-0400 SaO2% (BldA) [Mass fraction] 94 % [facility] 03-03-2022 13:00-0400 Systolic blood pressure 129 mm[Hg] [facility] 03-03-2022 12:50-0400 Respiratory rate 12 /min [facility] 03-03-2022 10:56-0400 Body temperature 97.5 [degF] [facility] 02-20-2022 09:31-0400 Body weight 64.86 kg NA Le PA-C Work Phone: [facility] 02-20-2022 09:31-0400 Diastolic blood pressure 78 mm[Hg] NA Le PA-C Work Phone: [facility] 02-20-2022 09:31-0400 Heart rate 116 /min NA Le PA-C Work Phone: [facility] 02-20-2022 09:31-0400 Respiratory rate 16 /min NA Le PA-C Work Phone: [facility] 02-20-2022 09:31-0400 SaO2% (BldA) [Mass fraction] 100 % NA Le PA-C Work Phone: [facility] 02-20-2022 09:31-0400 Systolic blood pressure 132 mm[Hg] NA Le PA-C Work Phone: [facility] 01-16-2022 10:26-0400 Body temperature 98.49 [degF] NA Le PA-C Work Phone: [facility] 01-16-2022 10:26-0400 Body weight 64.41 kg NA Le PA-C Work Phone: [facility] 01-16-2022 10:26-0400 Diastolic blood pressure 72 mm[Hg] NA Le PA-C Work Phone: [facility] 01-16-2022 10:26-0400 Heart rate 92 /min NA Le PA-C Work Phone: [facility] 01-16-2022 10:26-0400 Respiratory rate 16 /min NA Le PA-C Work Phone: [facility] 01-16-2022 10:26-0400 SaO2% (BldA) [Mass fraction] 98 % NA Le PA-C Work Phone: [facility] 01-16-2022 10:26-0400 Systolic blood pressure 138 mm[Hg] NA Le PA-C Work Phone: [facility] 01-09-2022 14:25-0400 Diastolic blood pressure 66 mm[Hg] Emilia Diallo MD Work Phone: [facility] 01-09-2022 14:25-0400 Heart rate 95 /min Emilia Diallo MD Work Phone: [facility] 01-09-2022 14:25-0400 SaO2% (BldA) [Mass fraction] 99 % Emilia Diallo MD Work Phone: [facility] 01-09-2022 14:25-0400 Systolic blood pressure 133 mm[Hg] Emilia Diallo MD Work Phone: [facility] 01-02-2022 11:15-0400 Diastolic blood pressure 60 mm[Hg] Chai Encinas MD Work Phone: [facility] 01-02-2022 11:15-0400 Heart rate 89 /min Chai Ecninas MD Work Phone: [facility] 01-02-2022 11:15-0400 SaO2% (BldA) [Mass fraction] 97 % Chai Encinas MD Work Phone: [facility] 01-02-2022 11:15-0400 Systolic blood pressure 134 mm[Hg] Chai Encinas MD Work Phone: [facility] 01-02-2022 11:00-0400 Respiratory rate 20 /min Chai Encinas MD Work Phone: [facility] 01-02-2022 10:42-0400 Body temperature 97.9 [degF] Chai Encinas MD Work Phone: [facility] 01-02-2022 08:59-0400 Body height 160 cm Chai Encinas MD Work Phone: [facility] 01-02-2022 08:59-0400 Body weight 65.77 kg Chai Encinas MD Work Phone: [facility] 01-01-2022 09:45-0400 Body height 160 cm Chai Encinas MD Work Phone: [facility] 01-01-2022 09:45-0400 Body temperature 97 [degF] Chai Encinas MD Work Phone: [facility] 01-01-2022 09:45-0400 Body weight 65.77 kg Chai Encinas MD Work Phone: [facility] 01-01-2022 09:45-0400 Diastolic blood pressure 52 mm[Hg] Chai Encinas MD Work Phone: [facility] 01-01-2022 09:45-0400 Heart rate 100 /min Chai Encinas MD Work Phone: [facility] 01-01-2022 09:45-0400 SaO2% (BldA) [Mass fraction] 98 % Chai Encinas MD Work Phone: [facility] 01-01-2022 09:45-0400 Systolic blood pressure 122 mm[Hg] Chai Encinas MD Work Phone: [facility] 12-30-2021 13:16-0400 Body temperature 96.9 [degF] [facility] Work Phone: 12-30-2021 13:16-0400 Diastolic blood pressure 54 mm[Hg] [facility] Work Phone: 12-30-2021 13:16-0400 Heart rate 73 /min [facility] Work Phone: 12-30-2021 13:16-0400 Respiratory rate 16 /min [facility] Work Phone: 12-30-2021 13:16-0400 SaO2% (BldA) [Mass fraction] 97 % [facility] Work Phone: 12-30-2021 13:16-0400 Systolic blood pressure 113 mm[Hg] [facility] Work Phone: 12-30-2021 08:17-0400 Body height 160.02 cm [facility] Work Phone: 12-15-2021 09:08-0400 Body temperature 98.2 [degF] NA Le PA-C Work Phone: [facility] 12-15-2021 09:08-0400 Body weight 66.04 kg NA Le PA-C Work Phone: [facility] 12-15-2021 09:08-0400 Diastolic blood pressure 64 mm[Hg] NA Le PA-C Work Phone: [facility] 12-15-2021 09:08-0400 Heart rate 97 /min NA Le PA-C Work Phone: [facility] 12-15-2021 09:08-0400 Respiratory rate 18 /min NA Le PA-C Work Phone: [facility] 12-15-2021 09:08-0400 SaO2% (BldA) [Mass fraction] 99 % NA Le PA-C Work Phone: [facility] 12-15-2021 09:08-0400 Systolic blood pressure 118 mm[Hg] NA Le PA-C Work Phone: [facility] 11-26-2021 09:54-0400 Body height 160 cm Na Ramirez APRN.CN P Work Phone: [facility] 11-26-2021 09:54-0400 Body weight 65.77 kg Na Ramirez ATHLETIC AGENT.CN P Work Phone: [facility] 01-19-2019 10:25-0400 BMI (Body Mass Index) 28.62 kg/m2 [facility] 01-19-2019 10:25-0400 Body weight 72.12 kg [facility] 01-19-2019 10:25-0400 BP Diastolic 64 mm[Hg] [facility] 01-19-2019 10:25-0400 BP Systolic 134 mm[Hg] [facility] 01-19-2019 10:25-0400 Height 158.8 cm [facility] 01-19-2019 10:25-0400 Pulse (Heart Rate) 100 /min [facility] 01-19-2019 10:25-0400 Pulse Oximetry 99 % [facility] 01-19-2019 10:25-0400 Respiratory Rate 16 /min [facility] Encounters Encounter Date Encounter Type Care Provider Facility Start: 05-10-2025 ambulatory Vincent Chi Mark [facility] Start: 05-07-2025 End: 05-07-2025 ambulatory Vincent Chi Mark [facility] Start: 05-03-2025 ambulatory Vincent Chi Mark [facility] Start: 05-03-2025 End: 05-04-2025 ambulatory Vincent Chi Mark Facility:[facility] Start: 05-02-2025 End: 05-02-2025 ambulatory Vincent Chi Mark Facility:[facility] Start: 04-24-2025 End: 04-24-2025 Dr. Ric Noriega MD -[facility] Work Phone: Start: 04-24-2025 End: 04-24-2025 ambulatory Deysi Collazo OCC MED PHYSICIAN-C Work Phone: -[facility] Start: 04-22-2025 End: 04-22-2025 ambulatory Vincent Chi Mark Facility:[facility] Start: 04-22-2025 End: 04-22-2025 Dr. Yaniv Masters MD -[facility] Work Phone: Start: 04-19-2025 Dr. Javi Abrams -[facility] Start: 04-12-2025 ambulatory Vincent Chi Mark [facility] Start: 04-12-2025 Dr. Ebony Cerrato MD -[facility] Work Phone: Start: 04-05-2025 ambulatory Vincent Chi Mark [facility] Start: 04-05-2025 Dr. Ebony Cerrato MD -[facility] Work Phone: Start: 04-05-2025 Dr. Ebony Cerrato [facility] Work Phone: Start: 04-02-2025 End: 04-02-2025 ambulatory Deysi Haagen OCC MED PHYSICIAN-C Work Phone: -Laboratory [facility]y [facility]rd Flr Start: 04-02-2025 End: 04-02-2025 Dr. Vincent Flores MD -[facility] Start: 04-02-2025 End: 04-02-2025 ambulatory [facility] Facility:[facility] Start: 03-29-2025 End: 04-03-2025 ambulatory Deysi Haagen OCC MED PHYSICIAN-C Work Phone: -[facility] Start: 03-29-2025 End: 04-03-2025 Dr. Ebony Cerrato MD -[facility] Work Phone: Start: 03-27-2025 Dr. Ric rodriguez MD -[facility] Start: 03-22-2025 End: 03-22-2025 Deysi Haagen OCC MED PHYSICIAN-C Work Phone: -Emergency Department Work Phone: Start: 03-22-2025 End: 03-22-2025 Emergency department patient visit Edysi Haagen OCC MED PHYSICIAN-C Work Phone: -Emergency Department Start: 03-20-2025 Dr. Ric rodriguez MD -[facility] Start: 03-15-2025 ambulatory Vincent Chi Mark [facility] Start: 03-15-2025 Dr. Ebony Cerrato MD -[facility] Work Phone: Start: 03-13-2025 End: 03-13-2025 Dr. Ric Noriega MD -[facility] Work Phone: Start: 03-13-2025 End: 03-13-2025 ambulatory Deysi Haagen OCC MED PHYSICIAN-C Work Phone: -[facility] Start: 03-09-2025 ambulatory Vincent Chi Mark Facility:[facility] Start: 03-09-2025 End: 03-09-2025 ambulatory Deysi Haagen OCC MED PHYSICIAN-C Work Phone: -Laboratory Start: 03-09-2025 End: 03-09-2025 Dr. Vincent Flores MD -Laboratory Work Phone: Start: 03-08-2025 End: 03-09-2025 ambulatory Vincent Chi Mark Facility:[facility] Start: 03-08-2025 Dr. Ebony Cerrato MD -[facility] Work Phone: Start: 03-08-2025 Dr. Ebony Cerrato MD -[facility] Work Phone: Start: 03-02-2025 End: 03-02-2025 ambulatory Dyesigladys Collazo OCC MED PHYSICIAN-C Work Phone: -Laboratory Phy Office 3rd Flr Start: 03-02-2025 End: 03-02-2025 Dr. Vincent Flores MD -[facility]rd Flr Start: 03-01-2025 ambulatory Vincent Chi Mark [facility] Start: 03-01-2025 Dr. Ebony Cerrato MD -[facility] Work Phone: Start: 03-01-2025 End: 03-04-2025 Dr. Ebony Cerrato MD [facility] Work Phone: Start: 03-01-2025 End: 03-04-2025 ambulatory Deysi Haagen OCC MED PHYSICIAN-C Work Phone: -[facility] Start: 02-27-2025 End: 02-27-2025 ambulatory Deysi Haagen OCC MED PHYSICIAN-C Work Phone: -Laboratory Phy Office 3rd Flr Start: 02-27-2025 End: 02-27-2025 Dr. Vincent Flores MD -[facility]rd Fl[facility] Start: 02-27-2025 End: 02-27-2025 ambulatory [facility] Facility:[facility] Start: 02-21-2025 End: 02-21-2025 ambulatory Deysi Haagen OCC MED PHYSICIAN-C Work Phone: -Laboratory Phy Office 3rd Flr Start: 02-21-2025 End: 02-21-2025 Dr. Vincent Flores MD -Laboratory Phy [facility] 3rd Flr Start: 02-21-2025 End: 02-21-2025 ambulatory [facility] Facility:[facility] Start: 02-16-2025 End: 02-16-2025 Dr. Magdy Pang MD -Emergency Department Work Phone: Start: 02-16-2025 End: 02-16-2025 Emergency department patient visit Deysi Haagen OCC MED PHYSICIAN-C Work Phone: -Emergency Department Work Phone: Start: 02-13-2025 End: 02-13-2025 ambulatory Deysi Haagen OCC MED PHYSICIAN-C Work Phone: -Laboratory Start: 02-13-2025 End: 02-13-[address] Vincent Flores MD -Laboratory Work Phone: Start: 02-13-2025 End: 02-13-2025 Dr. Vincent Flores MD -Laboratory Work Phone: Start: 02-13-2025 End: 02-13-2025 ambulatory Vincent Cas Flores Facility:[facility] Start: 02-08-2025 End: 02-08-2025 ambulatory Deysi Haagen OCC MED PHYSICIAN-C Work Phone: -[facility] Start: 02-08-2025 End: 02-08-2025 Patient encounter procedure Pau Davis -[facility] Work Phone: Start: 02-08-2025 End: 02-08-2025 Dr. Yaniv Masters MD -[facility] Work Phone: Start: 02-05-2025 End: 02-05-[address] Juan Diego Huynh MD -[facility] Work Phone: Start: 02-05-2025 End: 02-05-2025 Dr. Juan Diego Huynh MD -[facility] Work Phone: Start: 02-05-2025 End: 02-05-2025 ambulatory Deysi Haagen OCC MED PHYSICIAN-C Work Phone: -[facility] Start: 02-05-2025 End: 02-05-2025 ambulatory Vincent Chi Mark Facility:[facility] Start: 02-01-2025 End: 02-01-2025 ambulatory Deysi Hadon OCC MED PHYSICIAN-C Work Phone: -Laboratory Phy Office 3rd Flr Start: 02-01-2025 End: 02-01-[address] Vincent Flores MD -Laboratory Phy [facility] 3rd Flr Start: 02-01-2025 End: 02-01-2025 Dr. Vincent Flores MD -Laboratory Phy [facility] 3rd Flr Start: 02-01-2025 End: 02-01-2025 ambulatory [facility] Facility:[facility] Start: 01-26-2025 End: 01-30-2025 Refill Carla Burdick MD Work Phone: Cardiology Comment on above: Refill Request Start: 01-23-2025 End: 01-23-2025 ambulatory Deysi Hadon OCC MED PHYSICIAN-C Work Phone: -Laboratory Start: 01-23-2025 End: 01-23-[address] Jeremy Mcgarry MD -Laboratory Work Phone: Start: 01-23-2025 End: 01-23-2025 Dr. Jeremy Mcgarry MD -Laboratory Work Phone: Start: 01-23-2025 End: 01-23-2025 ambulatory Vincent Chi Mark Facility:[facility] Start: 01-11-2025 Non-patient / Non-visit Dr. Luis tSovall DO -[facility] Work Phone: Start: 01-11-2025 Dr. Dianne sapp [facility] Work Phone: Start: 01-10-2025 Non-patient / Non-visit Dr. Luis metzger [facility] Work Phone: Start: 01-10-2025 Dr. Dianne sapp [facility] Work Phone: Start: 01-09-2025 Non-patient / Non-visit Dr. Luis metzger [facility] Work Phone: Start: 01-09-2025 [facility] Work Phone: Start: 01-08-2025 Non-patient / Non-visit Dr. Luis metzger [facility] Work Phone: Start: 01-08-2025 [facility] Work Phone: Start: 01-08-2025 ambulatory [facility] Start: 01-08-2025 Non-patient / Non-visit Dr. Garcia [facility] Start: 01-08-2025 Dr. Yaniv Masters [facility] Start: 01-08-2025 ambulatory Carla Suarez ty:[facility] Start: 01-08-2025 Non-patient / Non-visit Dr. Abundio wells MD -[facility] Start: 01-08-2025 Dr. Abundio Turcios MD [facility] Start: 01-07-2025 End: 01-11-2025 ambulatory Radha Heller Facility:[facility] Start: 01-07-2025 End: 01-11-2025 Evaluation and management of inpatient Dr. Radha Heller MD -Pro[facility] Care Unit Work Phone: Start: 01-07-2025 End: 01-11-2025 Dr. Dianne Stovall DO [facility] Work Phone: Start: 01-01-2025 End: [...] Start: 01-01-2025 End: 01-01-2025 ambulatory CARLA BURDICK Facility:[facility] Start: 12-26-2024 End: 12-26-2024 Orders Only Albin Gu APRN.SCRAP CHARGER Work Phone: Cardiology Comment on above: Returning Patient's Call Start: 12-20-2024 End: 02-19-2025 Follow-up encounter Deysi Collazo APRN.CNP Work Phone: [facility] Start: 12-20-2024 End: 12-20-2024 Patient encounter procedure Lars Silva DO Work Phone: Vascular Surgery Comment on above: Superior mesenteric artery stenosis (HCC) (Primary Dx) Start: 12-20-2024 End: 12-20-2024 ambulatory LARS SILVA Facility:[facility] Start: 12-19-2024 End: 12-19-2024 Patient encounter procedure Albin Gu APRN.SCRAP CHARGER Work Phone: Cardiology Comment on above: Chronic diastolic co ngestive heart failure (HCC) (Primary Dx); Primary hypertension; SSS (sick sinus syndrome) (HCC); Longstanding persistent atrial fibrillation (HCC) Start: 12-19-2024 End: 12-19-2024 ambulatory ALBIN GU Facility:[facility] Start: 12-13-2024 End: 12-13-2024 Telephone encounter Deysi Collazo APRN.CNP Work Phone: [facility] Comment on above: Transition Of Care Start: 12-11-2024 End: 12-11-2024 Telephone encounter Deysi Collazo APRN.SCRAP CHARGER Work Phone: [address] [place] [address] Start: 12-10-2024 End: 12-12-2024 Evaluation and management of inpatient [facility] Facility:[facility] Start: 12-01-2024 End: 12-01-2024 ambulatory CARLA BURDICK Facility:[facility] Start: 11-20-2024 End: 11-20-2024 Patient encounter procedure Carla Burdick MD Work Phone: Cardiology Comment on above: History of prostheti c aortic valve replacement (Primary Dx); Chronic diastolic (congestive) heart failure (HCC); Ascending aorta dilatation; Longstanding persistent atrial fibrillation (HCC); PAD (peripheral artery disease); Primary hypertension; Hyperlipidemia with target LDL less than 70; Acute mesenteric ischemia (HCC) Start: 11-20-2024 End: 11-20-2024 ambulatory CARLA BURDICK Facility:[facility] Start: 11-15-2024 End: 11-15-2024 Follow-up encounter Carla Burdick MD Work Phone: [facility] Cardiology [place] Start: 11-13-2024 End: 11-13-2024 ambulatory [facility] Facility:[facility] Start: 11-06-2024 End: 11-06-2024 ambulatory CARLA BURDICK Facility:[facility] Start: 11-06-2024 End: 11-06-2024 Patient encounter procedure [...] 11-03-2024 End: 11-03-2024 Telephone encounter Albin Gu APRN.SCRAP CHARGER Work Phone: Cardiology Comment on above: Results Start: 11-03-2024 End: 11-03-2024 ambulatory ALBIN GU Facility:[facility] Start: 11-03-2024 End: 11-03-2024 Patient encounter procedure Albin Gu APRN.SCRAP CHARGER Work Phone: Cardiology Comment on above: Chronic diastolic co ngestive heart failure (HCC) (Primary Dx); Primary hypertension; SSS (sick sinus syndrome) (HCC); Longstanding persistent atrial fibrillation (HCC); Stage 3b chronic kidney disease (HCC) Start: 11-03-2024 End: 11-03-2024 ambulatory ALBIN GU Facility:[facility] Start: 10-31-2024 End: 12-31-2024 Follow-up encounter Shaye Domingo APRN.CNP Work Phone: [facility] Start: 10-31-2024 End: 10-31-2024 ambulatory SHAYE DOMINGO Facility:[facility] Start: 10-31-2024 End: 10-31-2024 Office outpatient visit 25 minutes Shaye Domingo APRN.SCRAP CHARGER Work Phone: [facility] Comment on above: Acute mesenteric isc hemia [...] 10-12-2024 End: 10-12-2024 Telephone encounter Albin Gu APRN.SCRAP CHARGER Work Phone: Cardiology Comment on above: Patient Update Start: 07-31-2024 End: 07-31-2024 Telephone encounter Melida Koo APRN.CNP Work Phone: Cardiology Start: 07-07-2024 End: 07-07-2024 ambulatory DIANNE LE Facility:[facility] Start: 07-07-2024 End: 07-07-2024 ambulatory DIANNE LE Facility:[facility] Start: 04-07-2024 End: 04-07-2024 Patient encounter procedure Albin Gu APRN.CNP Work Phone: Cardiology Comment on above: Chronic diastolic co ngestive heart failure (HCC) (Primary Dx); Primary hypertension; SSS (sick sinus syndrome) (HCC); Longstanding persistent atrial fibrillation (HCC) Start: 04-07-2024 End: 04-07-2024 ambulatory ALBIN GU Facility:[facility] Start: 03-14-2024 End: 03-14-2024 Refill Melida Koo ATHLETIC AGENT.SCRAP CHARGER Work Phone: Cardiology Start: 02-21-2024 End: 02-21-2024 Telephone encounter Melida Koo ATHLETIC AGENT.SCRAP CHARGER Work Phone: Cardiology Start: 02-17-2024 ambulatory Carla dempsey MD Work Phone: Cardiology Comment on above: NT Pro BNP Start: 02-15-2024 End: 02-15-2024 ambulatory DIANNE HAASORY LE Facility:[facility] Start: 02-07-2024 Telephone encounter Melida walker APRN.SCRAP CHARGER Work Phone: Cardiology Comment on above: Recheck Chronic diastolic co ngestive heart failure (HCC) (Primary Dx) Start: 02-04-2024 Telephone encounter Albin amaro APRN.SCRAP CHARGER Work Phone: Cardiology Comment on above: Appointment Results Start: 02-03-2024 End: 02-03-2024 ambulatory [facility] Facility:[facility] Start: 01-17-2024 End: 01-17-2024 [facility] Start: 01-17-2024 End: 01-17-2024 Patient encounter procedure [...] Office outpatient visit 15 minutes Deysi Collazo APRN.SCRAP CHARGER Work Phone: [facility] Comment on above: URI, acute (Primary Dx) Start: 11-26-2023 ambulatory Valentine Meneses RN Ambulato ry Care Management Comment on above: YONG SAM RN ( ED Utilization Review per request of payer) Start: 11-25-2023 End: 11-25-2023 Patient encounter procedure Albin Gu ATHLETIC AGENT.SCRAP CHARGER Work Phone: Cardiology Comment on above: Chronic diastolic co ngestive heart failure (HCC) (Primary Dx); Primary hypertension; SSS (sick sinus syndrome) (HCC); Longstanding persistent atrial fibrillation (HCC); Acute systolic CHF (congestive heart failure) (HCC) Start: 11-23-2023 ambulatory Ralph Zelaya Work Phone: Hematology/Oncology Comment on above: Results Start: 11-22-2023 End: 11-22-2023 Office outpatient visit 25 minutes Deysi Collazo APRN.SCRAP CHARGER Work Phone: [facility] Comment on above: Acute systolic CHF ( congestive heart failure) (HCC) (Primary Dx); Hyponatremia; Hypokalemia Start: 11-19-2023 Telephone encounter Albin amaro APRN.SCRAP CHARGER Work Phone: Cardiology Comment on above: Patient Question Start: 11-17-2023 Telephone encounter Gwen Valentine RN Cardiology Comment on above: Transition Mgr - O ther (CHF) Start: 11-16-2023 ambulatory Geri Montes RN Amb ulatory Care Management Comment on above: YONG SAM RN ( E.D. Utilization Review per Payer Request.) Start: 11-15-2023 Telephone encounter Nara Malone RN NOC Comment on above: Transition Of Care Start: 11-12-2023 Orders Only Ying saenz ATHLETIC AGENT.SCRAP CHARGER Work Phone: Cardiology Comment on above: Stage 3 chronic kidn ey disease, unspecified whether stage 3a or 3b CKD (HCC) (Primary Dx) Initial Consult (HEA RT FAILURE [id number] ) Start: 11-08-2023 End: 11-08-2023 Emergency department patient visit eGrard LE Facility:[facility] Start: 11-08-2023 End: 11-08-2023 Patient encounter procedure Bere Boykin APRNBLADIMIR Work Phone: Cardiology Comment on above: Acute HFrEF (heart f ailure with reduced ejection fraction) (HCC) (Primary Dx); VHD (valvular heart disease); Nonrheumatic tricuspid valve regurgitation; Nonrheumatic mitral valve regurgitation; Persistent atrial fibrillation (HCC); Pacemaker Start: 11-04-2023 End: 11-04-2023 Patient encounter procedure Gerard Le PA-C Work Phone: [facility] [place] [...] osteoarthritis of both knees Start: 11-02-2023 ambulatory Gerard de la cruz PA-C Work Phone: Family [facility] [place] Comment on above: moving forward Start: 11-02-2023 E-mail encounter fro m caregiver Gerard Le PA-C Work Phone: [facility] [place] Start: 11-02-2023 Telephone encounter Gerard Le PA-C Work Phone: Family [facility] [place] Comment on above: Results; Orders Start: 10-31-2023 Telephone encounter Gerard Le PA-C Work Phone: Family [facility] [place] Start: 10-19-2023 End: 10-19-2023 Patient encounter procedure Lars Silva DO Work Phone: Vascular Surgery Comment on above: Venous insufficiency (Primary Dx) Start: 10-18-2023 End: 10-18-2023 Subsequent hospital visit by physician Xr [facility] [place] Work Phone: Radiology Comment on above: Acute systolic CHF ( congestive heart failure) ([facility]) [I50.21] Start: 10-18-2023 End: 10-18-2023 Patient encounter procedure Gerard Le PA-C Work Phone: Family [facility] [place] Comment on above: SSS (sick sinus synd juliana) ([facility]) (Primary Dx); Paroxysmal atrial fibrillation ([facility]); S/P placement of cardiac pacemaker; Chronic combined systolic and diastolic CHF (congestive heart failure) ([facility]); Dilated cardiomyopathy ([facility]); Ascending aorta dilatation ([facility]); Pedro aneurysm of anterior communicating artery; History of pulmonary embolism; Presence of Watchman left atrial appendage closure device; Platelet inhibition due to Plavix; Primary hypertension; Hyperlipidemia with target LDL less than 70; Heme + stool; Epigastric pain; Blood loss anemia; Acute systolic CHF (congestive heart failure) ([facility]); Vitamin D deficiency Start: 10-15-2023 Telephone encounter Carla Burdick MD Work Phone: Cardiology Comment on above: Patient Update Start: 10-14-2023 End: 10-14-2023 Patient encounter procedure Lars Molina Mellisa CURRY Work Phone: Vascular Surgery Comment on above: Venous insufficiency (Primary Dx) Start: 10-11-2023 Follow-up encounter Yin Joseph MD Work Phone: [facility] Start: 10-11-2023 Pacemaker Remote F/U Yin Joseph MD Work Phone: [facility] Start: 07-05-2023 End: 07-05-2023 Patient encounter procedure Bijan Cole MD Work Phone: [facility] Comment on above: Influenza-like illne ss (Primary Dx) Start: 06-07-2023 ambulatory Gerard de la cruz PA-C Work Phone: [facility] [place] Comment on above: Rt. Foot Bone Fractu re Start: 06-01-2023 End: 06-01-2023 Subsequent hospital visit by physician David [facility] [place] Work Phone: Radiology Comment on above: Closed nondisplaced fracture of fifth metatarsal bone of right foot with routine healing, subsequent encounter [U15.354O] Start: 04-30-2023 End: 04-30-2023 Subsequent hospital visit by physician Ct [facility] Wstr (I-Stat) Work Phone: Cat Scan Comment on above: Lung nodule, solitar y [R91.1] Start: 04-12-2023 End: 04-12-2023 Subsequent hospital visit by physician Xr [facility] [place] Work Phone: Radiology Comment on above: Pain of right middle finger [J08.564] Start: 03-23-2023 Follow-up encounter Yin Joseph MD Work Phone: [facility] Start: 03-23-2023 Pacemaker Remote F/U Yin Joseph MD Work Phone: [facility] Start: 03-15-2023 Refill Gerard KING-Ivett Work Phone: Family Medicine [place] Comment on above: Refill Request Start: 01-28-2023 Telephone encounter Gerard KING-Ivett Work Phone: [facility] [place] Comment on above: Appointment Start: 01-08-2023 Telephone encounter Gerard KING-Ivett Work Phone: [facility] [place] Comment on above: Orders Start: 01-07-2023 End: 01-07-2023 Patient encounter procedure Gerard KING-Ivett Work Phone: Family Medicine [place] Comment on above: Bilateral carotid ar marcelo stenosis (Primary Dx); Atherosclerosis of ramona artery of both lower extremities with intermittent claudication (HCC); 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HCC); Pain in both lower legs; Iron 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; Iron malabsorption; S/P placement of cardiac pacemaker; SSS (sick sinus syndrome) ([facility]); Chronic combined systolic and diastolic CHF (congestive heart failure) ([facility]); Dilated cardiomyopathy ([facility]); Ascending aorta dilatation ([facility]); H/O rheumatic heart disease; History of prosthetic [...] Follow-up encounter Yin Joseph MD [facility] Start: 12-22-2022 Pacemaker Remote F/U Yin Joseph MD Work Phone: [facility] Start: 12-10-2022 ambulatory Gerard Butleri ty:[facility] Start: 10-06-2022 End: 10-06-2022 Patient encounter procedure Gerard Le PA-C Work Phone: [facility] Comment on above: S/P placement of car [...] End: 10-05-2022 Subsequent hospital visit by physician [facility] W[facility] Mob 2 Work Phone: Radiology Comment on above: 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] Start: 09-29-2022 Refill Gerard Dodge on PA-C Work Phone: Hematology/Oncology Comment on above: [...] cardiac pacemaker; PAD (peripheral artery disease) (HCC); Hyperlipidemia with target LDL less than 70 Start: 09-21-2022 Follow-up encounter Yin Joseph MD Work Phone: [facility] Start: 09-21-2022 Pacemaker Remote F/U Yin Joseph MD Work Phone: [facility] Start: 08-30-2022 Refill Gerard Dodge on PA-C Work Phone: [facility] [place] Comment on above: Refill Request Start: 07-22-2022 Telephone encounter Research C oordinator Work Phone: Cardiology Comment on above: Research (IRB [id number]) Start: 07-08-2022 Telephone encounter Gerard KING-C Work Phone: [facility] [place] Comment on above: Information Start: 07-07-2022 End: 07-07-2022 Patient encounter procedure Gerard KING-C Work Phone: [facility] [place] Comment on above: H/O rheumatic heart disease (Primary Dx); Aortic prosthetic valve regurgitation, subsequent encounter; SSS (sick sinus syndrome) (HCC); Atrial fibrillation, unspecified type (HCC); Presence of Watchman left atrial appendage closure device; 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); S/P placement of cardiac pacemaker; Dilated cardiomyopathy (HCC); Ascending aorta dilatation (HCC); History of pulmonary embolism; Platelet inhibition due to Plavix; Primary hypertension; Hyperlipidemia with target LDL less than 70; Pedro aneurysm of anterior communicating artery; Stage 3b chronic kidney disease (HCC); Type 2 diabetes mellitus with diabetic peripheral angiopathy without gangrene, without long-term current use of insulin (HCC); Renal mass, right; Anemia, blood loss; Intracranial aneurysm; Spondylolisthesis at L4-L5 level; Nonruptured cerebral aneurysm; Paroxysmal atrial fibrillation (HCC); Peripheral artery disease (HCC) Start: 06-23-2022 Follow-up encounter Yin Joseph MD Work Phone: [facility] Start: 06-23-2022 Pacemaker Remote F/U Yin Joseph MD Work Phone: [facility] Start: 05-23-2022 Refill Sonny Lund MD Work Phone: Hematology/Oncology Comment on above: Refill Request; Refi ll Request Start: 05-14-2022 End: 05-14-2022 ambulatory Sonny Lund MD Work Phone: Hematology/Oncology Comment on above: Iron deficiency anem ia secondary to inadequate dietary iron intake (Primary Dx); Chronic renal failure, stage 3b (HCC) Start: 05-14-2022 End: 05-14-2022 Patient encounter procedure Sonny Lund MD Work Phone: [facility] Start: 04-28-2022 End: 04-28-2022 [facility] Work Phone: Hematology/Oncology Comment on above: Iron deficiency anem ia secondary to inadequate dietary iron intake (Primary Dx); Iron malabsorption Start: 04-22-2022 Refill Carla dempsey MD Work Phone: Cardiology Comment on above: Refill Request Start: 04-22-2022 End: 04-22-2022 ambulatory Treatment 7 [facility] Work Phone: Hematology/Oncology Comment on above: Iron deficiency anem ia secondary to inadequate dietary iron intake (Primary Dx); Iron malabsorption Start: 04-20-2022 End: 04-20-2022 ambulatory Treatment Rm 9 [facility] Work Phone: Hematology/Oncology Comment on above: Iron deficiency anem ia secondary to inadequate dietary iron intake (Primary Dx); Iron malabsorption Start: 04-17-2022 End: 04-17-2022 ambulatory Treatment Rm 9 [facility] Work Phone: Hematology/Oncology Comment on above: Iron deficiency anem ia secondary to inadequate dietary iron intake (Primary Dx); Iron malabsorption Start: 04-09-2022 Telephone encounter Gerard Le PA-C Work Phone: [facility] [place] Comment on above: Orders Start: 04-09-2022 End: [...] Start: 04-06-2022 End: 04-06-2022 Patient encounter procedure Gerard Le PA-C Work Phone: [facility] Comment on above: Hospital discharge f ollow-up [...] chronic blood loss Start: 03-30-2022 Telephone encounter Gerard Le PA-C Work Phone: [facility] Comment on above: Hospital Follow Up; Appointment [...] Follow-up encounter Yin Joseph MD Work Phone: [facility] Start: 03-24-2022 Pacemaker Remote F/U Yin Joseph MD Work Phone: [facility] Start: 03-23-2022 Telephone encounter Brianna Betancourt Cardiology Comment on above: Transition Mgr - O ther (CHF) Start: 03-21-2022 Telephone encounter Juan Diego Carroll MD Work Phone: ID PROVIDER ADULT Comment on above: Appointment Start: 03-20-2022 Admission to establishment Sheridan manning RN Switchboard And Control Room Operator Management Comment on above: Transition Of Care ( Tcm readmission) Start: 03-20-2022 ambulatory Sheridan Cervantes RN [id number] Start: 03-19-2022 End: 03-19-2022 Patient encounter procedure Gerard Le PA-C Work Phone: [facility] Comment on above: 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); Aortic prosthetic valve regurgitation, subsequent encounter; H/O rheumatic heart disease; Atrial fibrillation, unspecified type (HCC); Presence of Watchman left atrial appendage closure device; Anemia, blood loss; Primary hypertension Start: 03-05-2022 ambulatory Sheridan Cervantes RN IND [employer] Comment on above: ABDIEL -; Watchmen Start: 03-05-2022 Follow-up encounter Sheridan Cervantes RN Switchboard And Control Room Operator Management Comment on above: Transition Of Care ( Tcm follow up) Start: 03-03-2022 Follow-up encounter Lili Fay MD Work Phone: [facility] Start: 03-03-2022 End: 03-03-2022 Patient encounter procedure Lili Fay MD Work Phone: [facility] Comment on above: Longstanding persist ent atrial fibrillation (HCC) (Primary Dx); Presence of Watchman left atrial appendage closure device Paroxysmal atrial fi brillation (HCC); Presence of Watchman left atrial appendage closure device Start: 03-02-2022 Telephone encounter Saima England RN C ardiology Comment on above: Reminder Call (Trans esophageal Echo 03/03/22) Start: 02-25-2022 Patient Outreach Harika Tomas RN F [facility] [place] Comment on above: Transition Of Care ( [facility] D[facility]C 02/24/2023 ) Start: 02-20-2022 End: 02-20-2022 Patient encounter procedure Gerard Le PA-C Work Phone: [facility] [place] Comment on above: Rectal bleeding (Nohemy stacie Dx); Anemia, blood loss; Diarrhea, unspecified type Start: 02-12-2022 Telephone encounter Chai Encinas MD Work Phone: General Surgery Comment on above: Procedure Follow Up (EGD completed on 01/02/2022) Start: 02-09-2022 Orders Only Candi Juarez nd ATHLETIC AGENT.SCRAP CHARGER Work Phone: Cardiology Comment on above: Paroxysmal atrial fi brillation (HCC) (Primary Dx); Presence of Watchman left atrial appendage closure device Start: 01-21-2022 Orders Only Candi Juarez nd ATHLETIC AGENT.SCRAP CHARGER Work Phone: Cardiology Comment on above: Paroxysmal atrial fi brillation (HCC) (Primary Dx) Patient Question (OR YUSUF FOR ABDIEL AND ECG) Start: 01-19-2022 Refill Emilia Domínguez i, MD Work Phone: Cardiology Comment on above: Refill Request Start: 01-16-2022 End: 01-16-2022 Patient encounter procedure Gerard Le PA-C Work Phone: [facility] [place] Comment on above: Atrial fibrillation, unspecified type (HCC) (Primary Dx); Presence of Watchman left atrial appendage closure device; Herpes zoster without complication Start: 01-09-2022 ambulatory Chandler ivllalobos MD Work Phone: Cardiology Comment on above: Patient Education (E PS-Watchman) Start: 01-09-2022 Follow-up encounter Randy Torrez MD Work Phone: [facility] Start: 01-09-2022 End: 01-09-2022 Patient encounter procedure Randy Torrez MD Work Phone: [facility] Comment on above: Atrial fibrillation, unspecified type (HCC) (Primary Dx); Gastrointestinal hemorrhage, unspecified gastrointestinal hemorrhage type; Anemia due to chronic blood loss; Other fatigue; SOB (shortness of breath) Start: 01-02-2022 End: 01-02-2022 Subsequent hospital visit by physician Chai Encinas MD Work Phone: [facility] Comment on above: Acute blood loss ane miguel [D62] Start: 01-01-2022 Telephone encounter Chai Encinas MD Work Phone: General Surgery Comment on above: 01-02-2022 eg[facility] Start: 01-01-2022 End: 01-01-2022 Patient encounter procedure Chai Encinas MD Work Phone: General Surgery Comment on above: Anemia, blood loss ( Primary Dx); Acute blood loss anemia; Heme + stool; Sludge in gallbladder; Epigastric pain; Duodenal ulcer with hemorrhage Start: 12-30-2021 End: 12-30-2021 Patient encounter procedure [facility] Start: 12-29-2021 Telephone encounter Gerard Le PA-C Work Phone: [facility] [place] Comment on above: Orders Start: 12-27-2021 ambulatory Gerard Dodge on PA-C Work Phone: Family [facility] [place] Comment on above: Fatigue Start: 12-26-2021 ambulatory Gerard Dodge on PA-C Work Phone: [facility] [place] Comment on above: Anemia - hemoglobin Start: 12-25-2021 Telephone encounter Chandler ortiz MD Work Phone: Cardiology Comment on above: Patient Question (ME DICATION DECREASE) Start: 12-19-2021 Telephone encounter Gerard Le PA-C Work Phone: [facility] [place] Comment on above: Rectal Problem Start: 12-15-2021 End: 12-15-2021 Subsequent hospital visit by physician David [facility] [place] Work Phone: Radiology Comment on above: Ischial bursitis of left side [M70.72] Start: 12-15-2021 End: 12-15-2021 Patient encounter procedure Gerard Le PA-C Work Phone: [facility] [place] Comment on above: Renal mass, right (P rimary Dx); History of pulmonary embolism; Primary hypertension; Hyperlipidemia with target LDL less than 70; Dilated cardiomyopathy ([facility]); SSS (sick sinus syndrome) (HCC); Chronic diastolic congestive heart failure (HCC); Ascending aorta dilatation ([facility]); Pedro aneurysm of anterior communicating artery; Bilateral carotid artery stenosis; Chronic anticoagulation; Duodenal ulcer; Esophageal stenosis; Hypomagnesemia; Stage 3 chronic renal impairment associated with type 2 diabetes mellitus (HCC); History of ischemic colitis; Adenomatous polyp of descending colon; PAD (peripheral artery disease) ([facility]); Type 2 diabetes mellitus with diabetic peripheral angiopathy without gangrene, without long-term current use of insulin ([facility]); Heme + stool; Epigastric pain; Blood loss anemia; Chronic insomnia; Ischial bursitis of left side Start: 12-11-2021 Follow-up encounter Yin Joseph MD Work Phone: [facility] Start: 12-11-2021 Pacemaker Remote F/U Yin Joseph MD Work Phone: [facility] Start: 12-04-2021 Refill Chandler villalobos MD Work Phone: Cardiology Start: 12-03-2021 Telephone encounter Chandler ortiz MD Work Phone: Cardiology Comment on above: Patient Question (ME DICATION QUESTION - XARELTO) Start: 11-27-2021 Orders Only Na Ramirez ATHLETIC AGENT.SCRAP CHARGER Work Phone: Vascular Surgery Comment on above: PAD (peripheral jennifer ry disease) (HCC) (Primary Dx); PVD (peripheral vascular disease) (HCC) Start: 11-26-2021 End: 11-26-2021 Office outpatient visit 25 minutes Na Ramirez ATHLETIC AGENT.SCRAP CHARGER Work Phone: Vascular Surgery Comment on above: PAD (peripheral jennifer ry disease) (HCC) (Primary Dx); Anemia due to chronic illness Start: 10-22-2021 Refill Yin Joseph MD Work Phone: Vascular Surgery Comment on above: Refill Request Start: 09-24-2021 Follow-up encounter Yin Joseph MD Work Phone: [facility] Start: 09-24-2021 Pacemaker Remote F/U Yin Joseph MD Work Phone: [facility] Start: 09-24-2021 Telephone encounter Chai Encinas MD Work Phone: General Surgery Comment on above: Appointment Cancelle d Start: 09-23-2021 Telephone encounter Chandler ortiz MD Work Phone: Cardiology Comment on above: Appointment Reschedu led (Due to change in physician's schedule) Start: 02-14-2021 End: 02-15-2021 ambulatory PROVIDER NOT IN SYSTEM [facility] Start: 01-23-2019 End: 01-23-2019 Refill Lizeth Mabry [facility] Start: 01-19-2019 End: 01-19-2019 Office outpatient visit 15 minutes Mars Chung Work Phone: [facility] Comment on above: Persistent atrial fi brillation (Primary Dx); emt intermediate current use of antiarrhythmic medical therapy; Moderate mitral regurgitation; Status post aortic valve replacement with tissue valve Start: 01-08-2014 End: 09-12-2021 Patient encounter status CARMELINA Le PA-C Work Phone: [facility] Procedures Date Procedure Procedure Detail Performing Clinician Start: 05-02-2025 Mean corpuscular hemoglobin concentration determination Deysi Collazo OCC MED PHYSICIAN-C Work Phone: Start: 05-02-2025 Neutrophil count Deysi Collazo OCC MED PHYSICIAN-C Work Phone: Start: 05-02-2025 Nucleated red blood cell count procedure Deysi Copeagen OCC MED PHYSICIAN-C Work Phone: Start: 05-02-2025 Platelet mean volume determination Gilmer Collazo OCC MED PHYSICIAN-C Work Phone: Start: 05-02-2025 Vitamin D, 25-hydroxy measurement Gopi Collazo OCC MED PHYSICIAN-C Work Phone: Start: 04-24-2025 Immature reticulocyte fraction Deysi hernandez OCC MED PHYSICIAN-C Work Phone: Start: 04-24-2025 Mean corpuscular hemoglobin concentration determination Deysi Collazo OCC MED PHYSICIAN-C Work Phone: Start: 04-24-2025 Neutrophil count Deysi Collazo OCC MED PHYSICIAN-C Work Phone: Start: 04-24-2025 Nucleated red blood cell count procedure Deysi Collazo OCC MED PHYSICIAN-C Work Phone: Start: 04-24-2025 Platelet mean volume determination Gilmer Collazo OCC MED PHYSICIAN-C Work Phone: Start: 04-24-2025 Total iron binding capacity measurement Deysi Copeagen OCC MED PHYSICIAN-C Work Phone: Start: 04-02-2025 Bacterial nucleic acid assay Deysi Nickerson gen OCC MED PHYSICIAN-C Work Phone: Start: 04-02-2025 Anaerobic microbial culture Deysi Copeag en OCC MED PHYSICIAN-C Work Phone: Start: 04-02-2025 Gram stain microscopy Deysi Collazo OCC MED PHYSICIAN-C Work Phone: Start: 04-02-2025 End: 04-02-2025 Microbial culture, routine Deysi Haage n OCC MED PHYSICIAN-C Work Phone: Start: 03-13-2025 Blood count smear mcrscp w/mnl difrntl wbc count Deysi Collazo OCC MED PHYSICIAN-C Work Phone: Start: 03-13-2025 Immature reticulocyte fraction Deysi hernandez OCC MED PHYSICIAN-C Work Phone: Start: 03-13-2025 Mean corpuscular hemoglobin concentration determination Deysi Collazo OCC MED PHYSICIAN-C Work Phone: Start: 03-13-2025 Neutrophil count Deysi Collazo OCC MED PHYSICIAN-C Work Phone: Start: 03-13-2025 Nucleated red blood cell count procedure Deysi Copeagen OCC MED PHYSICIAN-C Work Phone: Start: 03-13-2025 Platelet mean volume determination Gilmer Copeagen OCC MED PHYSICIAN-C Work Phone: Start: 03-13-2025 Total iron binding capacity measurement Deysi Collazo OCC MED PHYSICIAN-C Work Phone: Start: 03-09-2025 Blood count smear mcrscp w/mnl difrntl wbc count Deysi Collazo OCC MED PHYSICIAN-C Work Phone: Start: 03-09-2025 Mean corpuscular hemoglobin concentration determination Deysi Copeagen OCC MED PHYSICIAN-C Work Phone: Start: 03-09-2025 Neutrophil count Deysi Collazo OCC MED PHYSICIAN-C Work Phone: Start: 03-09-2025 Nucleated red blood cell count procedure Deysi Copeagen OCC MED PHYSICIAN-C Work Phone: Start: 03-09-2025 Platelet mean volume determination Gilmer Copeagen OCC MED PHYSICIAN-C Work Phone: Start: 03-09-2025 Reactive lymphocyte count Deysi Collazo OCC MED PHYSICIAN-C Work Phone: Start: 02-27-2025 Urine culture Deysi Collazo OCC MED PHYSICIAN-C Work Phone: Start: 02-27-2025 Blood count smear mcrscp w/mnl difrntl wbc count Deysi Collazo OCC MED PHYSICIAN-C Work Phone: Start: 02-27-2025 Mean corpuscular hemoglobin concentration determination Deysi Haagen OCC MED PHYSICIAN-C Work Phone: Start: 02-27-2025 Neutrophil count Deysi Collazo OCC MED PHYSICIAN-C Work Phone: Start: 02-27-2025 Nucleated red blood cell count procedure Deysi Collazo OCC MED PHYSICIAN-C Work Phone: Start: 02-27-2025 Platelet mean volume determination Gilmer Collazo OCC MED PHYSICIAN-C Work Phone: Start: 02-27-2025 Urine microscopy: red cells Deysi edouard OCC MED PHYSICIAN-C Work Phone: Start: 02-27-2025 Urnls dip stick/tablet reagent auto microscopy Deysi Collazo OCC MED PHYSICIAN-C Work Phone: Start: 02-21-2025 Blood count smear mcrscp w/mnl difrntl wbc count Deysi Collazo OCC MED PHYSICIAN-C Work Phone: Start: 02-21-2025 Mean corpuscular hemoglobin concentration determination Deysi Collazo OCC MED PHYSICIAN-C Work Phone: Start: 02-21-2025 Neutrophil count Deysi Collazo OCC MED PHYSICIAN-C Work Phone: Start: 02-21-2025 Nucleated red blood cell count procedure Deysi Collazo OCC MED PHYSICIAN-C Work Phone: Start: 02-21-2025 Platelet mean volume determination Gilmer Collazo OCC MED PHYSICIAN-C Work Phone: Start: 02-16-2025 Blood count smear mcrscp w/mnl difrntl wbc count Deysi Collazo OCC MED PHYSICIAN-C Work Phone: Start: 02-16-2025 Estimated creatinine clearance Deysi henleysilke OCC MED PHYSICIAN-C Work Phone: Start: 02-16-2025 Mean corpuscular hemoglobin concentration determination Deysi Collazo OCC MED PHYSICIAN-C Work Phone: Start: 02-16-2025 Neutrophil count Deysi Collazo OCC MED PHYSICIAN-C Work Phone: Start: 02-16-2025 Nucleated red blood cell count procedure Deysi Collazo OCC MED PHYSICIAN-C Work Phone: Start: 02-16-2025 Platelet mean volume determination Gilmer Collazo OCC MED PHYSICIAN-C Work Phone: Start: 02-16-2025 X-ray of chest, PA and lateral views Deysi Collazo OCC MED PHYSICIAN-C Work Phone: Start: 02-13-2025 Osmolality measurement, serum Deysi ochoa OCC MED PHYSICIAN-C Work Phone: Start: 02-13-2025 Blood count smear mcrscp w/mnl difrntl wbc count Deysi Collazo OCC MED PHYSICIAN-C Work Phone: Start: 02-13-2025 Mean corpuscular hemoglobin concentration determination Deysi Collazo OCC MED PHYSICIAN-C Work Phone: Start: 02-13-2025 Neutrophil count Deysi Collazo OCC MED PHYSICIAN-C Work Phone: Start: 02-13-2025 Nucleated red blood cell count procedure Deysi Collazo OCC MED PHYSICIAN-C Work Phone: Start: 02-13-2025 Platelet mean volume determination Gilmer Collazo OCC MED PHYSICIAN-C Work Phone: Start: 02-01-2025 Blood count smear mcrscp w/mnl difrntl wbc count Deysi Collazo OCC MED PHYSICIAN-C Work Phone: Start: 02-01-2025 Mean corpuscular hemoglobin concentration determination Deysi Collazo OCC MED PHYSICIAN-C Work Phone: Start: 02-01-2025 Neutrophil count Deysi Collazo OCC MED PHYSICIAN-C Work Phone: Start: 02-01-2025 Nucleated red blood cell count procedure Deysi Collazo OCC MED PHYSICIAN-C Work Phone: Start: 02-01-2025 Platelet mean volume determination Gilmer Collazo OCC MED PHYSICIAN-C Work Phone: Start: 02-01-2025 Vitamin D, 25-hydroxy measurement Gopi Collazo OCC MED PHYSICIAN-C Work Phone: Comment on above: Vitamin D StatusDeficiency: <20 ng/mL (5 0nmol/L)Insufficiency: 20-30 ng/mL (50-75 nmol/L)Sufficiency: 30-100 ng/mL (75-250 nmol/L)Toxicity: >100 ng/mL (>250 nmol/L) Start: 01-23-2025 Blood count smear mcrscp w/mnl difrntl wbc count Deysi Collazo NP-[facility] Work Phone: Start: 01-23-2025 Hepatitis C antibody measurement Deysi Collazo NP-[facility] Work Phone: Comment on above: Reactive: Presumptive evidence of antibo dies to HCV. Follow CDC recommendations for supplemental testing.Non-Reactive: Antibodies to HCV were not detected; does not exclude the possibility of exposure to HCVReactive Results are presumptive evidence of antibodies to HCV. Follow CDC recommendations for supplemental testing.Order confirmation testing: HCV Quant by PCR testing - HCVPCR #[id number] Non Reactive: < 0.8 Equivocal: >/= 0.8 to < 1.0 Reactive: >/= 1.0The CDC requires that a reactive/equivocal HCV antibody result be sent out for confirmation. HCV Quant by PCR testing. Start: 01-23-2025 Mean corpuscular hemoglobin concentration determination Deysi Collazo OCC MED PHYSICIAN-[place] Work Phone: Start: 01-23-2025 Neutrophil count Deysi Collazo NP-[facility] Work Phone: Start: 01-23-2025 Nucleated red blood cell count procedure Deysi Collazo [id number] Work Phone: Start: 01-23-2025 Platelet mean volume determination Gilmer Collazo [facility] Work Phone: Start: 01-23-2025 Serum inorganic phosphate measurement Deysi Collazo NP-[facility] Work Phone: Start: 01-23-2025 Total cholesterol:HDL ratio measurement Deysi Collazo NP-[facility] Work Phone: Start: 01-23-2025 Triglycerides measurement Deysi Collazo OCC MED PHYSICIAN-[place] Work Phone: Start: 01-23-2025 Vitamin D, 25-hydroxy measurement Gopi Collazo OCC MED PHYSICIAN-[place] Work Phone: Comment on above: Vitamin D StatusDeficiency: <20 ng/mL (5 0nmol/L)Insufficiency: 20-30 ng/mL (50-75 nmol/L)Sufficiency: 30-100 ng/mL (75-250 nmol/L)Toxicity: >100 ng/mL (>250 nmol/L) Start: 01-11-2025 Estimated creatinine clearance Deysi H aagsilke OCC MED PHYSICIAN-C Work Phone: Start: 01-08-2025 Blood count smear mcrscp w/mnl difrntl wbc count Deysi Collazo OCC MED PHYSICIAN-C Work Phone: Start: 01-08-2025 Mean corpuscular hemoglobin concentration determination Deysi Copedon OCC MED PHYSICIAN-C Work Phone: Start: 01-08-2025 Neutrophil count Deysi Collazo OCC MED PHYSICIAN-C Work Phone: Start: 01-08-2025 Nucleated red blood cell count procedure Deysi Copedon OCC MED PHYSICIAN-C Work Phone: Start: 01-08-2025 Platelet mean volume determination Gilmer Collazo OCC MED PHYSICIAN-C Work Phone: Start: 01-08-2025 Total cholesterol:HDL ratio measurement Deysi Collazo OCC MED PHYSICIAN-C Work Phone: Start: 01-08-2025 Triglycerides measurement Deysi Collazo OCC MED PHYSICIAN-C Work Phone: Start: 01-07-2025 CT angiography of head and neck Deysi Hadon OCC MED PHYSICIAN-C Work Phone: Start: 01-07-2025 CT of head without contrast Deysi Vipullauren edouard OCC MED PHYSICIAN-C Work Phone: Start: 01-07-2025 X-ray of chest, PA and lateral views Deysi Hadon OCC MED PHYSICIAN-C Work Phone: Start: 01-07-2025 Estimated creatinine clearance Deysi H aagsilke OCC MED PHYSICIAN-C Work Phone: Start: 11-08-2023 Ecg routine ecg w/least 12 lds i&r only [facility] Start: 10-18-2023 Radiologic exam chest 2 views Gerard Le PA-C Work Phone: Start: 10-18-2023 Ecg routine ecg w/least 12 lds i&r only [facility] Start: 10-11-2023 PACEMAKER REMOTE CHECK Yin Joseph MD Work Phone: Start: 07-05-2023 INFLUENZA A&B MOLECULAR (POC) Bijan Wei MD Work Phone: Start: 06-01-2023 Radex foot complete minimum 3 views Gerard Dodgeon PA-[facility] Work Phone: Start: 04-30-2023 Ct thorax w/o contrast material M Haider graham Le PA-C Work Phone: Start: 04-12-2023 Radex fingr minimum 2 views M Claudia Lopez [employer] Work Phone: Start: 03-23-2023 PACEMAKER REMOTE CHECK [...] 2d w/wo m-mode rec f-up/lmtd Candi Beauchamp ATHLETIC AGENT.SCRAP CHARGER Work Phone: Start: 01-09-2022 PACEMAKER CLINIC CHECK Randy Molina Work Phone: Start: 01-09-2022 Antibody screen rbc each serum technique Chandler Swan MD Work Phone: Start: 01-09-2022 Basic metabolic panel calcium total Chandler Swan MD Work Phone: Start: 01-02-2022 Esophagogastroduodenoscopy [...] DTaP,Tdap,Td Vaccine (3 - Td or Tdap) [facility] Start: 12-12-2025 Complete blood count Hemoglobin/Hematocrit [facility] Start: 12-12-2025 Creatinine measurement Serum Creatinine [facility] Start: 12-11-2025 Complete blood count Hemoglobin/Hematocrit [facility] Start: 12-11-2025 Creatinine measurement Serum Creatinine [facility] Start: 12-11-2025 Hepatitis B screening Urine Albumin:Creatinine Ratio [facility] Start: 11-20-2025 Creatinine measurement Serum Creatinine [facility] Start: 11-13-2025 Creatinine measurement Serum Creatinine [facility] Start: 11-03-2025 BP Controlled (<130/80) BP Controlled (<130/80) [facility] Start: 11-03-2025 Creatinine measurement Serum Creatinine [facility] Start: 10-31-2025 Annual PCP Team Chronic Disease Visit Annual PCP Team Chronic Disease Visit [facility] Start: 10-31-2025 Complete blood count Hemoglobin/Hematocrit [facility] Start: 10-31-2025 Creatinine measurement Serum Creatinine [facility] Start: 10-10-2025 Complete blood count Hemoglobin/Hematocrit [facility] Start: 10-03-2025 Hepatitis B screening Urine Albumin:Creatinine Ratio [facility] Start: 10-02-2025 Hepatitis B surface antibody level LDL Cholesterol [facility] Start: 07-23-2025 Reticulocyte count [facility] Start: 07-07-2025 Annual PCP Team Chronic Disease Visit Annual PCP Team Chronic Disease Visit [facility] Start: 07-07-2025 Anxiety Screening Anxiety Screening [facility] Comment on above: Postponed from 1963 (Declined at t his time) Start: 07-07-2025 Covid-19 Vaccine () Covid-19 Vaccine () [facility] Comment on above: Postponed from 03/05/2024 (Declined at t his time) Start: 07-07-2025 Creatinine measurement Serum Creatinine [facility] Start: 07-07-2025 Hepatitis B screening Urine Albumin:Creatinine Ratio [facility] Start: 05-10-2025 -[facility] Work Phone: Start: 05-07-2025 End: 05-07-2025 -[facility] Work Phone: Start: 05-03-2025 -[facility] Work Phone: Start: 05-03-2025 End: 05-04-2025 -[facility] Work Phone: Start: 05-02-2025 End: 05-02-2025 -Laboratory Phy Office 3rd Flr Start: 04-26-2025 Glaucoma screening Dilated Retinal Exam [facility] Start: 04-22-2025 Hemoglobin A1c measurement HbA1C [facility] Start: 04-03-2025 Hemoglobin A1c measurement HbA1C [facility] Start: 04-02-2025 Source specific culture [facility] Start: 04-02-2025 Anaerobic microbial culture [facility] Start: 04-02-2025 Gram stain microscopy [facility] Start: 04-02-2025 Microbial culture, routine [facility] Start: 04-02-2025 -Laboratory Phy Office 3rd Flr Start: 03-29-2025 -[facility] Work Phone: Start: 03-27-2025 -[facility] Start: 03-26-2025 End: 03-26-2025 Patient encounter procedure 03/26/2025 10:00 AM EDT Office Visit Cardiology [address] [place] [address] Carla Burdick MD [address] [address] 4 month follow up - ECHO prior Cardiology Comment on above: 4 month follow up - ECHO prior Start: 03-22-2025 [facility] Start: 03-19-2025 End: 03-19-2025 Patient encounter procedure 03/19/2025 1:50 PM EDT Office Visit Cardiology [address] [place] [address] ECHO Cardiology Comment on above: ECHO Start: 03-13-2025 CBC W Auto Differential panel - Blood [facility] Start: 03-13-2025 Comprehensive metabolic 2000 panel - Serum or Plasma [facility] Start: 03-13-2025 Erythropoietin (EPO) [Units/volume] in Serum or Plasma [facility] Start: 03-13-2025 Ferritin [Mass/volume] in Serum or Plasma [facility] Start: 03-13-2025 Iron and Iron binding capacity panel - Serum or Plasma [facility] Start: 03-13-2025 Reticulocyte count [facility] Start: 03-13-2025 Vitamin B12 measurement [facility] Start: 03-13-2025 [facility] Start: 03-05-2025 Influenza vaccination Influenza Vaccine (#1) [facility] Start: 02-27-2025 Urine culture [facility] Start: 02-27-2025 [facility] Start: 02-26-2025 End: 02-26-2025 Patient encounter procedure 02/26/2025 2:20 PM EDT Office Visit Cardiology [address] [place] [address] Carla Burdick MD [address] [address] f/u Cardiology Comment on above: f/u Start: 02-16-2025 End: 02-16-2025 [facility] Start: 02-16-2025 [facility] Start: 02-13-2025 Measurement of C-reactive protein using high sensitivity technique [facility] Start: 02-05-2025 End: 02-05-2025 Evaluation of diagnostic study results [facility] Start: 02-02-2025 Creatinine measurement Serum Creatinine [facility] Start: 02-02-2025 Hepatitis B surface antibody level LDL Cholesterol [facility] Start: 01-23-2025 End: 01-23-2025 Patient encounter procedure 01/23/2025 10:00 AM EDT Office Visit Cardiology [address] [place] [address] Albin Gu APRN.SCRAP CHARGER [address] [place] [address] CHF FOLLOW UP Cardiology Comment on above: CHF FOLLOW UP Start: 01-11-2025 Patient discharge [facility] Start: 01-10-2025 End: 01-10-2025 Patient encounter procedure [facility] Comment on above: 6 month follow up (SHABBIR from [facility]) 6 month follow up Start: 01-08-2025 Referral to linen grader [facility] Start: 01-08-2025 End: 01-08-2025 [facility] Start: 01-08-2025 Thyroid stimulating hormone measurement [facility] Start: 01-08-2025 Vital signs measurements [facility] Start: 01-08-2025 Cardiac monitoring [facility] Start: 01-08-2025 Catheterization of vein [facility] Start: 01-08-2025 Consultation [facility] Start: 01-08-2025 Elevation of head of bed [facility] Start: 01-08-2025 Exercises [facility] Start: 01-08-2025 Notification of physician [facility] Start: 01-08-2025 Patient referral to dietitian [facility] Start: 01-08-2025 Referral for physical therapy [facility] Start: 01-08-2025 Referral to occupational therapist [facility] Start: 01-08-2025 Referral to service [facility] Start: 01-08-2025 Speech therapy assessment [facility] Start: 01-08-2025 Tobacco use cessation education [facility] Start: 01-07-2025 Following clinical pathway protocol [facility] Start: 01-07-2025 Assessment of risk of venous thromboembolism [facility] Start: 01-07-2025 Care regimes management [facility] Start: 01-07-2025 Elevation of affected extremity [facility] Start: 01-07-2025 Inhalation therapy procedure [facility] Start: 01-07-2025 Insertion of catheter into peripheral vein [facility] Start: 01-07-2025 Measuring intake and output [facility] Start: 01-07-2025 Notification of physician [facility] Start: 01-07-2025 Patient education [facility] Start: 01-07-2025 Providing care according to standard [facility] Start: 01-07-2025 Provision of activity privileges [facility] Start: 01-07-2025 End: 01-07-2025 [facility] Start: 01-07-2025 Verification routine [facility] Start: 01-07-2025 Admission procedure [facility] Start: 01-07-2025 End: 01-07-2025 [facility] Start: 01-04-2025 Hemoglobin A1c measurement HbA1C [facility] Start: 01-01-2025 End: 04-02-2025 Basic metabolic 2000 panel - Serum or Plasma BASIC METABOLIC PANEL Lab Routine Chronic diastolic (congestive) heart failure (HCC) Expected: 01/01/2025, Expires: 04/02/2025 [facility] Comment on above: Expected: 01/01/2025, Expires: Start: 01-01-2025 End: 04-02-2025 Natriuretic peptide.B prohormone N-Terminal [Mass/volume] in Serum or Plasma NT PRO BNP Lab Routine Chronic diastolic (congestive) heart failure (HCC) Expected: 01/01/2025, Expires: 04/02/2025 [facility] Comment on above: Expected: 01/01/2025, Expires: Start: 01-01-2025 End: 01-01-2025 Patient encounter procedure 01/01/2025 11:00 AM EDT Office Visit Cardiology [address] [place] [address] Carla Burdick MD [address] [address] 1 month follow up Cardiology Comment on above: 1 month follow up Start: 12-21-2024 End: 12-21-2024 Patient encounter procedure 12/21/2024 9:00 AM EDT Office Visit Cardiology [address] [place], [place] [id number] Albin Gu APRN.SCRAP CHARGER [address] [place], [place] [id number] CHF Cardiology Comment on above: CHF Start: 12-20-2024 End: 12-20-2024 Patient encounter procedure Vascular Surgery Comment on above: MESENTERIC AND HOSPITAL FOLLOW UP Start: 12-19-2024 End: 03-20-2025 Basic metabolic 2000 panel - Serum or Plasma BASIC METABOLIC PANEL Lab Routine Chronic diastolic congestive heart failure (HCC) Expected: 12/19/2024, Expires: 03/20/2025 [facility] Work Phone: Comment on above: Expected: 12/19/2024, Expires: Start: 12-18-2024 End: 12-18-2024 Patient encounter procedure 12/18/2024 11:00 AM EDT Office Visit Cardiology [address] [place] [address] Albin Gu APRN.SCRAP CHARGER [address] [place], [place] [id number] CHF Cardiology Comment on above: CHF Start: 12-11-2024 End: 12-11-2024 Patient encounter procedure 12/11/2024 2:30 PM EDT Office Visit Cardiology [address] [place] [address] Allison Toledo APRN.SCRAP CHARGER [address] [address] follow u Cardiology Comment on above: follow u Start: 12-06-2024 Annual PCP Team Chronic Disease Visit Annual PCP Team Chronic Disease Visit [facility] Start: 12-06-2024 BP Controlled (<130/80) BP Controlled (<130/80) [facility] Start: 12-04-2024 End: 12-04-2024 Patient encounter procedure 12/04/2024 2:00 PM EDT Office Visit Cardiology [address] [place], [place] [id number] Carla Burdick MD [address] [place] [address] [place] [phone] (Fax) 1 month follow up Cardiology Comment on above: 1 month follow up Start: 12-01-2024 Creatinine measurement Serum Creatinine [facility] Start: 11-21-2024 Annual PCP Team Chronic Disease Visit Annual PCP Team Chronic Disease Visit [facility] Start: 11-21-2024 BP Controlled (<130/80) BP Controlled (<130/80) [facility] Start: 11-21-2024 End: 11-21-2024 Patient encounter procedure 11/21/2024 10:00 AM EDT Office Visit Cardiology [address] [place] [address] Albin Gu, ATHLETIC AGENT.SCRAP CHARGER [address] [place] [address] CHF Cardiology Comment on above: CHF Start: 11-20-2024 End: 11-20-2024 Patient encounter procedure 11/20/2024 8:00 AM EDT Office Visit Cardiology [address] [place], [place] [address] Carla Burdick MD [address] [place], [place] [phone] (Fax) follow up with labs per Dr Burdick's phone note Cardiology Comment on above: follow up with labs per Dr Burdick's da ne note Start: 11-18-2024 Complete blood count Hemoglobin/Hematocrit [facility] Start: 11-18-2024 Creatinine measurement Serum Creatinine [facility] Start: 11-15-2024 End: 02-14-2025 Basic metabolic 2000 panel - Serum or Plasma BASIC METABOLIC PANEL Lab Routine Dyspnea on exertion Chronic diastolic congestive heart failure (HCC) Expected: 11/15/2024, Expires: 02/14/2025 [facility] Work Phone: Comment on above: Expected: 11/15/2024, Expires: Start: 11-15-2024 End: 02-14-2025 Natriuretic peptide.B prohormone N-Terminal [Mass/volume] in Serum or Plasma NT PRO BNP Lab Routine Dyspnea on exertion Chronic diastolic congestive heart failure (HCC) Expected: 11/15/2024, Expires: 02/14/2025 [facility] Comment on above: Expected: 11/15/2024, Expires: Start: 11-15-2024 End: 11-15-2024 ambulatory 11/15/2024 9:00 AM EDT OT/PT/Speech Visit [facility] [address] [place], [place] [id number] Frank Null, PT [address] [place], [place] [id number] Physical deconditioning [R53.81] [facility] Comment on above: Physical deconditioning [R53.81] Start: 11-11-2024 Complete blood count Hemoglobin/Hematocrit [facility] Start: 11-11-2024 Creatinine measurement Serum Creatinine [facility] Start: 11-09-2024 Complete blood count Hemoglobin/Hematocrit [facility] Start: 11-09-2024 Creatinine measurement Serum Creatinine [facility] Start: 11-07-2024 End: 11-07-2024 ambulatory 11/07/2024 10:45 AM EDT OT/PT/Speech Visit [facility] [address] [place] [address] Adriana Wilson, OTR/L [address] [facility] [facility] [place] [address] Physical deconditioning [R53.81] [facility] Comment on above: Physical deconditioning [R53.81] Start: 11-06-2024 End: 11-06-2024 Patient encounter procedure 11/06/2024 2:40 PM EDT Office Visit Cardiology [address] [place] [address] Carla Burdick MD [address] [place] [address] hospital f/u - acute on chronic CHF Cardiology Comment on above: hospital f/u - acute on chronic CHF Start: 11-06-2024 End: 02-05-2025 Basic metabolic 2000 panel - Serum or Plasma BASIC METABOLIC PANEL Lab Routine Chronic diastolic (congestive) heart failure (HCC) Expected: 11/06/2024, Expires: 02/05/2025 [facility] Work Phone: Comment on above: Expected: 11/06/2024, Expires: Start: 11-06-2024 End: 02-05-2025 Natriuretic peptide.B prohormone N-Terminal [Mass/volume] in Serum or Plasma NT PRO BNP Lab Routine Chronic diastolic (congestive) heart failure (HCC) Expected: 11/06/2024, Expires: 02/05/2025 [facility] Comment on above: Expected: 11/06/2024, Expires: Start: 11-03-2024 Annual PCP Team Chronic Disease Visit Annual PCP Team Chronic Disease Visit [facility] Start: 11-03-2024 End: 02-02-2025 Basic metabolic 2000 panel - Serum or Plasma BASIC METABOLIC PANEL Lab Routine Chronic diastolic congestive heart failure (HCC) Expected: 11/03/2024, Expires: 02/02/2025 [facility] Work Phone: Comment on above: Expected: 11/03/2024, Expires: Start: 10-31-2024 Complete blood count Hemoglobin/Hematocrit [facility] Start: 10-31-2024 Creatinine measurement Serum Creatinine [facility] Start: 10-26-2024 End: 10-26-2024 Patient encounter procedure 10/26/2024 9:00 AM EDT Office Visit Cardiology [address] [place] [address] Albin Gu, TERI.SCRAP CHARGER [address] [place] [address] I50.32 I10 I49.5 I48.11 Cardiology Comment on above: I50.32 I10 I49.5 I48.11 Start: 10-25-2024 End: 10-25-2024 Patient encounter procedure 10/25/2024 1:30 PM EDT Office Visit Vasculary Surgery [address] [place], [place] [id number] Bilateral carotid artery stenosis [I65.23] [facility] Comment on above: Bilateral carotid artery stenosis [I65.2 3] Start: 10-24-2024 End: 10-24-2024 Patient encounter procedure 10/24/2024 11:00 AM EDT Office Visit Cardiology [address] [place] [address] Albin Gu, ATHLETIC AGENT.SCRAP CHARGER [address] [place] [address] CHF Cardiology Comment on above: CHF Start: 10-23-2024 End: 10-23-2024 Patient encounter procedure 10/23/2024 2:00 PM EDT Office Visit [facility] [address] [place], [place] [id number] Deysi Collazo, TERI.SCRAP CHARGER [address] [place] [address] Post hospital visit [facility] Comment on above: Post hospital visit Start: 10-17-2024 Annual PCP Team Chronic Disease Visit Annual PCP Team Chronic Disease Visit [facility] Start: 10-17-2024 End: 10-17-2024 Patient encounter procedure Cardiology Comment on above: medtronic ep eval [facility] Start: 10-15-2024 Creatinine measurement Serum Creatinine [facility] Start: 07-05-2024 Advance Directive Discussion Advance Directive Discussion [facility] Start: 07-05-2024 Medicare Advantage Annual Wellness Visit Medicare [facility] Annual Wellness Visit [facility] Start: 06-01-2024 Annual PCP Team Chronic Disease Visit Annual PCP Team Chronic Disease Visit [facility] Start: 06-01-2024 BP Controlled (<130/80) BP Controlled (<130/80) [facility] Start: 04-16-2024 Glaucoma screening Dilated Retinal Exam [facility] Start: 04-16-2024 Hepatitis C antibody, confirmatory test Dilated Retinal Exam [facility] Start: 04-12-2024 Annual PCP Team Chronic Disease Visit Annual PCP Team Chronic Disease Visit [facility] Start: 04-12-2024 Covid-19 Vaccine () Covid-19 Vaccine () [facility] Comment on above: Postponed from 03/05/2023 (Declined at t his time) Start: 04-12-2024 Shingrix Vaccine (2 of 2) Shingrix Vaccine (2 of 2) [facility] Comment on above: Postponed from 01/03/2019 (Insurance Cov erage) Start: 04-07-2024 Complete blood count Hemoglobin/Hematocrit [facility] Start: 04-07-2024 Creatinine measurement Serum Creatinine [facility] Start: 04-07-2024 Hemoglobin/Hematocrit Hemoglobin/Hematocrit [facility] Start: 04-07-2024 Hepatitis B screening Urine Albumin:Creatinine Ratio [facility] Start: 04-07-2024 Hepatitis B surface antibody level LDL Cholesterol [facility] Start: 04-07-2024 Serum Creatinine Serum Creatinine [facility] Start: 04-07-2024 End: 04-07-2024 Patient encounter procedure 04/07/2024 9:00 AM EDT Office Visit Cardiology [address] [place] [address] Albin Gu APRN.SCRAP CHARGER [address] [place] [address] I50.32 I10 I49.5 I48.11 I50.21 Cardiology Comment on above: I50.32 I10 I49.5 I48.11 I50.21 Start: 04-06-2024 End: 04-06-2024 Patient encounter procedure 04/06/2024 9:00 AM EDT Office Visit Cardiology [address] [place] [address] Albin Gu APRN.SCRAP CHARGER [address] [place] [address] I50.32 I10 I49.5 I48.11 I50.21 Cardiology Comment on above: I50.32 I10 I49.5 I48.11 I50.21 Start: 03-05-2024 Covid-19 Vaccine ( season) Covid-19 Vaccine () [facility] Start: 03-05-2024 Covid-19 Vaccine () Covid-19 Vaccine () [facility] Start: 03-05-2024 Influenza vaccination Influenza Vaccine (#1) [facility] Start: 02-07-2024 End: 05-08-2024 Basic metabolic 2000 panel - Serum or Plasma BASIC METABOLIC PANEL Lab Routine Chronic kidney disease, unspecified CKD stage Expected: 02/07/2024, Expires: 05/08/2024 [facility] Work Phone: Comment on above: Expected: 02/07/2024, Expires: Start: 02-07-2024 End: 05-08-2024 Natriuretic peptide.B prohormone N-Terminal [Mass/volume] in Serum or Plasma NT PRO BNP Lab Routine Chronic diastolic congestive heart failure (HCC) Expected: 02/07/2024, Expires: 05/08/2024 [facility] Work Phone: Comment on above: Expected: 02/07/2024, Expires: 4 Start: 02-07-2024 End: 02-07-2024 Patient encounter procedure 02/07/2024 8:00 AM EDT Office Visit [facility] [address] [place] [address] Gerard Le PA-C [address] [place] [address] 3 month follow up [facility] Comment on above: 3 month follow up Start: 01-17-2024 End: 04-17-2024 Comprehensive metabolic 2000 panel - Serum or Plasma COMPREHENSIVE METABOLIC PANEL Lab Routine Chronic diastolic (congestive) heart failure (HCC) Expected: 01/17/2024, Expires: 04/17/2024 [facility] Comment on above: Expected: 01/17/2024, Expires: Start: 01-17-2024 End: 04-17-2024 Lipid 1996 panel - Serum or Plasma LIPID PANEL BASIC Lab Routine Hyperlipidemia with target LDL less than 70 Expected: 01/17/2024, Expires: 04/17/2024 [facility] Work Phone: Comment on above: Expected: 01/17/2024, Expires: Start: 01-17-2024 End: 04-17-2024 Natriuretic peptide.B prohormone N-Terminal [Mass/volume] in Serum or Plasma NT PRO BNP Lab Routine Chronic diastolic (congestive) heart failure (HCC) Expected: 01/17/2024, Expires: 04/17/2024 [facility] Comment on above: Expected: 01/17/2024, Expires: Start: 01-17-2024 End: 01-17-2024 Patient encounter procedure 01/17/2024 9:20 AM EDT Office Visit Cardiology [address] [place] [address] Carla Burdick MD [address] [address] 6 month follow up Cardiology Comment on above: 6 month follow up Start: 01-09-2024 Urine microalbumin profile [facility] Start: 01-08-2024 ANNUAL PCP TEAM CHRONIC DISEASE VISIT ANNUAL PCP TEAM CHRONIC DISEASE VISIT [facility] Start: 12-02-2023 End: 03-02-2024 CBC W Auto Differential panel - Blood COMPLETE BLOOD COUNT AND DIFFERENTIAL Lab Routine Borderline anemia Acute systolic congestive heart failure (HCC) Expected: 12/02/2023, Expires: 03/02/2024 [facility] Work Phone: Comment on above: Expected: 12/02/2023, Expires: Start: 12-02-2023 End: 03-02-2024 Iron and Iron binding capacity panel - Serum or Plasma IRON AND TIBC Lab Routine Borderline anemia Expected: 12/02/2023, Expires: 03/02/2024 [facility] Comment on above: Expected: 12/02/2023, Expires: Start: 11-30-2023 End: 11-30-2023 Patient encounter procedure 11/30/2023 11:00 AM EDT Office Visit Cardiology [address] [place] [address] Albin Gu APRN.SCRAP CHARGER [address], [place] [id number] NEW CHF/post hospitalization Cardiology Comment on above: NEW CHF/post hospitalization Start: 11-25-2023 End: 02-24-2024 Basic metabolic 2000 panel - Serum or Plasma BASIC METABOLIC PANEL Lab Routine Chronic diastolic congestive heart failure (HCC) Expected: 11/25/2023, Expires: 02/24/2024 [facility] Work Phone: Comment on above: Expected: 11/25/2023, Expires: Start: 11-25-2023 End: 11-25-2023 Patient encounter procedure 11/25/2023 10:00 AM EDT Office Visit Cardiology [address], [place] [id number] Albin Gu APRN.SCRAP CHARGER [address] [place], [place] [id number] NEW CHF/post hospitalization Cardiology Comment on above: NEW CHF/post hospitalization Start: 11-24-2023 End: 11-24-2023 ambulatory 11/24/2023 11:00 AM EDT Visit (SP) Office Hematology/Oncology [address] [place] [address] [place] [address] [place] [address] 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] Hematology/Oncology Comment on above: Iron deficiency anemia secondary to inad equate dietary iron intake [D50.8] Start: 11-22-2023 End: 02-21-2024 Renal function 2000 panel - Serum or Plasma RENAL FUNCTION PANEL Lab Routine Hyponatremia Hypokalemia Expected: 11/22/2023, Expires: 02/21/2024 [facility] Work Phone: Comment on above: Expected: 11/22/2023, Expires: 4 Start: 11-22-2023 End: 11-22-2023 Patient encounter procedure 11/22/2023 9:00 AM EDT Office Visit [facility] [address] [place], [place] [id number] Deysi Collazo, ATHLETIC AGENT.SCRAP CHARGER [address] [place], [place] [phone] [facility] Follow up [facility] Comment on above: [facility] Follow up Start: 11-12-2023 End: 02-11-2024 Basic metabolic 2000 panel - Serum or Plasma BASIC METABOLIC PANEL Lab Routine Stage 3 chronic kidney disease, unspecified whether stage 3a or 3b CKD (HCC) Expected: 11/12/2023, Expires: 02/11/2024 [facility] Work Phone: Comment on above: Expected: 11/12/2023, Expires: 4 Start: 11-09-2023 End: 11-09-2023 Patient encounter procedure [facility] Comment on above: Carotid artery stenosis, asymptomatic, b ilateral [I65.23] PVD (peripheral vasc ular disease) with claudication (HCC) [I73.9] follow up after test ing Start: 11-08-2023 End: 11-08-2023 Patient encounter procedure 11/08/2023 4:30 PM EDT Office Visit Cardiology [address] [place] [address] Bere Boykin, ATHLETIC AGENT.SCRAP CHARGER [address] [place] [address] Follow up Cardiology Comment on above: Follow up Start: 11-04-2023 End: 11-04-2023 Patient encounter procedure 11/04/2023 8:00 AM EDT Office Visit [facility] [address] [place] [address] Gerard Le PA-C [address] [place] [address] 6 mo follow up [facility] Comment on above: 6 mo follow up Start: 11-02-2023 End: 02-01-2024 Basic metabolic 2000 panel - Serum or Plasma BASIC METABOLIC PANEL Lab Routine Acute systolic congestive heart failure (HCC) Expected: 11/02/2023, Expires: 02/01/2024 [facility] Comment on above: Expected: 11/02/2023, Expires: Start: 10-18-2023 End: 01-17-2024 25-hydroxyvitamin D3 [Mass/volume] in Serum or Plasma VITAMIN D 25 HYDROXY Lab Routine Vitamin D deficiency Expected: 10/18/2023, Expires: 01/17/2024 [facility] Work Phone: Comment on above: Expected: 10/18/2023, Expires: Start: 10-18-2023 End: 01-17-2024 Basic metabolic 2000 panel - Serum or Plasma BASIC METABOLIC PANEL Lab Routine Acute systolic CHF (congestive heart failure) (HCC) Expected: 10/18/2023, Expires: 01/17/2024 [facility] Work Phone: Comment on above: Expected: 10/18/2023, Expires: Start: 10-18-2023 End: 01-17-2024 CBC panel - Blood by Automated count COMPLETE BLOOD COUNT Lab Routine Acute systolic CHF (congestive heart failure) (HCC) Expected: 10/18/2023, Expires: 01/17/2024 [facility] Work Phone: Comment on above: Expected: 10/18/2023, Expires: Start: 10-18-2023 End: 01-17-2024 Natriuretic peptide.B prohormone N-Terminal [Mass/volume] in Serum or Plasma NT PRO BNP Lab Routine Acute systolic CHF (congestive heart failure) (HCC) Expected: 10/18/2023, Expires: 01/17/2024 [facility] Work Phone: Comment on above: Expected: 10/18/2023, Expires: 4 Start: 10-15-2023 End: 01-14-2024 Basic metabolic 2000 panel - Serum or Plasma BASIC METABOLIC PANEL Lab Routine 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) Dilated cardiomyopathy (HCC) Expected: 10/15/2023, Expires: 01/14/2024 [facility] Work Phone: Comment on above: Expected: 10/15/2023, Expires: Start: 10-15-2023 End: 01-14-2024 Natriuretic peptide.B prohormone N-Terminal [Mass/volume] in Serum or Plasma NT PRO BNP Lab Routine 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) Dilated cardiomyopathy (HCC) Expected: 10/15/2023, Expires: 01/14/2024 [facility] Work Phone: Comment on above: Expected: 10/15/2023, Expires: Start: 10-07-2023 ANNUAL PCP TEAM CHRONIC DISEASE VISIT ANNUAL PCP TEAM CHRONIC DISEASE VISIT [facility] Start: 10-07-2023 Hemoglobin A1c measurement HbA1C [facility] Start: 10-07-2023 Hemoglobin A1c/Hemoglobin.total in Blood HbA1C [facility] Start: 10-06-2023 HEMOGLOBIN/HEMATOCRIT HEMOGLOBIN/HEMATOCRIT [facility] Start: 10-06-2023 Hepatitis B surface antibody level LDL CHOLESTEROL [facility] Start: 10-06-2023 SERUM CREATININE SERUM CREATININE [facility] Start: 09-29-2023 BP CONTROLLED (<130/80) BP CONTROLLED (<130/80) [facility] Start: 07-07-2023 ANNUAL PCP TEAM CHRONIC DISEASE VISIT ANNUAL PCP TEAM CHRONIC DISEASE VISIT [facility] Start: 07-05-2023 Advance Directive Discussion Advance Directive Discussion [facility] Start: 07-05-2023 Behavioral Health Screening Behavioral Health Screening [facility] Start: 07-05-2023 Depression Assessment Depression Assessment [facility] Start: 07-03-2023 Hemoglobin A1c/Hemoglobin.total in Blood HBA1C [facility] Start: 05-14-2023 HEMOGLOBIN/HEMATOCRIT HEMOGLOBIN/HEMATOCRIT [facility] Start: 05-14-2023 SERUM CREATININE SERUM CREATININE [facility] Start: 04-15-2023 HEMOGLOBIN/HEMATOCRIT HEMOGLOBIN/HEMATOCRIT [facility] Start: 04-14-2023 Hepatitis C antibody, confirmatory test DILATED RETINAL EXAM [facility] Start: 04-07-2023 End: 06-07-2023 ALBUMIN/CREAT RATIO RND UR ALBUMIN/CREAT RATIO RND UR Lab Routine Type 2 diabetes mellitus with diabetic peripheral angiopathy without gangrene, without long-term current use of insulin (HCC) Expected: 04/07/2023, Expires: 06/07/2023 [facility] Work Phone: Comment on above: Expected: 04/07/2023, Expires: 3 Start: 04-07-2023 End: 06-07-2023 CBC W Auto Differential panel - Blood CBC + DIFF Lab Routine Primary hypertension Gastroesophageal reflux disease without esophagitis Chronic renal failure, stage 3b (HCC) Expected: 04/07/2023, Expires: 06/07/2023 [facility] Work Phone: Comment on above: Expected: 04/07/2023, [...] of insulin (HCC) Expected: 04/07/2023, Expires: 06/07/2023 [facility] Work Phone: Comment on above: Expected: 04/07/2023, Expires: 3 Start: 04-07-2023 End: 06-07-2023 Ferritin [Mass/volume] in Serum or Plasma FERRITIN BLD Lab Routine Iron 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 Expected: 04/07/2023, Expires: 06/07/2023 [facility] Work Phone: Comment on above: Expected: 04/07/2023, Expires: 3 Start: 04-07-2023 End: 06-07-2023 Hemoglobin A1c in Blood HGB A1C Lab Routine Type 2 diabetes mellitus with diabetic peripheral angiopathy without gangrene, without long-term current use of insulin (HCC) Expected: 04/07/2023, Expires: 06/07/2023 [facility] Work Phone: Comment on above: Expected: 04/07/2023, Expires: 3 Start: 04-07-2023 End: 06-07-2023 Iron and Iron binding capacity panel - Serum or Plasma IRON + TIBC Lab Routine 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 Expected: 04/07/2023, Expires: 06/07/2023 [facility] Work Phone: Comment on above: Expected: 04/07/2023, Expires: 3 Start: 04-07-2023 End: 06-07-2023 Lipid 1996 panel - Serum or Plasma LIPID PANEL BASIC Lab Routine Hyperlipidemia with target LDL less than 70 Expected: 04/07/2023, Expires: 06/07/2023 [facility] Work Phone: Comment on above: Expected: 04/07/2023, Expires: 3 Start: 04-06-2023 3 comp foot exam completed DIABETIC FOOT EXAM [facility] Start: 04-06-2023 ANNUAL PCP TEAM CHRONIC DISEASE VISIT ANNUAL PCP TEAM CHRONIC DISEASE VISIT [facility] Start: 04-06-2023 Diabetic foot examination Diabetic Foot Exam [facility] Start: 04-06-2023 HEMOGLOBIN/HEMATOCRIT HEMOGLOBIN/HEMATOCRIT [facility] Start: 04-06-2023 SERUM CREATININE SERUM CREATININE [facility] Start: 03-22-2023 HEMOGLOBIN/HEMATOCRIT HEMOGLOBIN/HEMATOCRIT [facility] Start: 03-22-2023 SERUM CREATININE SERUM CREATININE [facility] Start: 03-21-2023 HEMOGLOBIN/HEMATOCRIT HEMOGLOBIN/HEMATOCRIT [facility] Start: 03-21-2023 SERUM CREATININE SERUM CREATININE [facility] Start: 03-20-2023 HEMOGLOBIN/HEMATOCRIT HEMOGLOBIN/HEMATOCRIT [facility] Start: 03-20-2023 SERUM CREATININE SERUM CREATININE [facility] Start: 03-19-2023 ANNUAL PCP TEAM CHRONIC DISEASE VISIT ANNUAL PCP TEAM CHRONIC DISEASE VISIT [facility] Start: 03-19-2023 HEMOGLOBIN/HEMATOCRIT HEMOGLOBIN/HEMATOCRIT [facility] Start: 03-19-2023 SERUM CREATININE SERUM CREATININE [facility] Start: 03-05-2023 End: 09-29-2023 Echocardiography ECHO Cardiology Routine History of prosthetic aortic valve replacement H/O rheumatic heart disease Expected: 03/05/2023, Expires: 09/29/2023 [facility] Work Phone: Comment on above: Expected: 03/05/2023, Expires: Start: 03-05-2023 Influenza vaccination [facility] Start: 02-27-2023 HEMOGLOBIN/HEMATOCRIT HEMOGLOBIN/HEMATOCRIT [facility] Start: 02-27-2023 SERUM CREATININE SERUM CREATININE [facility] Start: 02-24-2023 HEMOGLOBIN/HEMATOCRIT HEMOGLOBIN/HEMATOCRIT [facility] Start: 02-24-2023 SERUM CREATININE SERUM CREATININE [facility] Start: 02-23-2023 HEMOGLOBIN/HEMATOCRIT HEMOGLOBIN/HEMATOCRIT [facility] Start: 02-22-2023 SERUM CREATININE SERUM CREATININE [facility] Start: 02-20-2023 ANNUAL PCP TEAM CHRONIC DISEASE VISIT ANNUAL PCP TEAM CHRONIC DISEASE VISIT [facility] Start: 02-17-2023 HEMOGLOBIN/HEMATOCRIT HEMOGLOBIN/HEMATOCRIT [facility] Start: 01-16-2023 ANNUAL PCP TEAM CHRONIC DISEASE VISIT ANNUAL PCP TEAM CHRONIC DISEASE VISIT [facility] Start: 01-09-2023 HEMOGLOBIN/HEMATOCRIT HEMOGLOBIN/HEMATOCRIT [facility] Start: 01-09-2023 SERUM CREATININE SERUM CREATININE [facility] Start: 01-01-2023 BP CONTROLLED (<130/80) BP CONTROLLED (<130/80) [facility] Start: 12-29-2022 HEMOGLOBIN/HEMATOCRIT HEMOGLOBIN/HEMATOCRIT [facility] Start: 12-26-2022 HEMOGLOBIN/HEMATOCRIT HEMOGLOBIN/HEMATOCRIT [facility] Start: 12-16-2022 Hepatitis B screening URINE ALBUMIN:CREATININE RATIO [facility] Start: 12-15-2022 Adult depression screening assessment DEPRESSION SCREENING [facility] Start: 12-15-2022 ANNUAL PCP TEAM CHRONIC DISEASE VISIT ANNUAL PCP TEAM CHRONIC DISEASE VISIT [facility] Start: 12-15-2022 BP CONTROLLED (<130/80) BP CONTROLLED (<130/80) [facility] Start: 12-15-2022 HEMOGLOBIN/HEMATOCRIT HEMOGLOBIN/HEMATOCRIT [facility] Start: 12-15-2022 Hepatitis B surface antibody level LDL CHOLESTEROL [facility] Start: 12-03-2022 DEPRESSION ASSESSMENT DEPRESSION ASSESSMENT [facility] Comment on above: Postponed from 07/05/2022 (Declined at t his time) Start: 11-28-2022 HEMOGLOBIN/HEMATOCRIT HEMOGLOBIN/HEMATOCRIT [facility] Start: 11-28-2022 SERUM CREATININE SERUM CREATININE [facility] Start: 10-06-2022 End: 12-06-2022 Iron and Iron binding capacity panel - Serum or Plasma IRON + TIBC Lab Routine Iron malabsorption Expected: 10/06/2022, Expires: 12/06/2022 [facility] Work Phone: Comment on above: Expected: 10/06/2022, [...] of insulin (HCC) Expected: 10/05/2022, Expires: 12/05/2022 [facility] Work Phone: Comment on above: Expected: 10/05/2022, Expires: 3 Start: 10-05-2022 End: 12-05-2022 Comprehensive metabolic 2000 panel - Serum or Plasma COMP METABOLIC PANEL Lab Routine Atrial fibrillation, unspecified type (HCC) Hyperlipidemia with target LDL less than 70 Expected: 10/05/2022, Expires: 12/05/2022 [facility] Work Phone: Comment on above: Expected: 10/05/2022, Expires: 3 Start: 09-28-2022 End: 11-28-2022 Lipid 1996 panel - Serum or Plasma LIPID PANEL BASIC Lab Routine Hyperlipidemia with target LDL less than 70 Expected: 09/28/2022, Expires: 11/28/2022 [facility] Work Phone: Comment on above: Expected: 09/28/2022, Expires: 3 Start: 09-17-2022 Hemoglobin A1c/Hemoglobin.total in Blood HBA1C [facility] Start: 09-16-2022 ANNUAL PCP TEAM CHRONIC DISEASE VISIT ANNUAL PCP TEAM CHRONIC DISEASE VISIT [facility] Start: 09-16-2022 BP CONTROLLED (<130/80) BP CONTROLLED (<130/80) [facility] Start: 09-16-2022 SHINGRIX VACCINE (2 of 2) SHINGRIX VACCINE (2 of 2) [facility] Comment on above: Postponed from 01/03/2019 (Insurance Cov erage) Start: 09-13-2022 HEMOGLOBIN/HEMATOCRIT HEMOGLOBIN/HEMATOCRIT [facility] Start: 09-02-2022 End: 05-09-2023 US KIDNEY/BLADDER US KIDNEY/BLADDER Radiology Routine Neoplasm of uncertain behavior of right kidney Expected: 09/02/2022, Expires: 05/09/2023 [facility] Work Phone: Comment on above: Expected: 09/02/2022, Expires: 3 Start: 07-07-2022 End: 05-06-2023 Ct thorax w/o contrast material CT CHEST WO IVCON Radiology Routine Lung nodule, solitary Expected: 07/07/2022, Expires: 05/06/2023 [facility] Work Phone: Comment on above: Expected: 07/07/2022, Expires: 3 Start: 07-05-2022 ADVANCE DIRECTIVE DISCUSSION ADVANCE DIRECTIVE DISCUSSION [facility] Start: 07-05-2022 DEPRESSION ASSESSMENT DEPRESSION ASSESSMENT [facility] Start: 06-16-2022 Hemoglobin A1c/Hemoglobin.total in Blood HBA1C [facility] Start: 06-02-2022 SERUM CREATININE SERUM CREATININE [facility] Start: 05-07-2022 End: 07-07-2022 Basic metabolic 2000 panel - Serum or Plasma BASIC METABOLIC PNL Lab Routine Stage 3b chronic kidney disease (HCC) Iron deficiency anemia due to chronic blood loss Expected: 05/07/2022, Expires: 07/07/2022 [facility] Work Phone: Comment on above: Expected: 05/07/2022, Expires: 3 Start: 05-07-2022 End: 07-07-2022 CBC panel - Blood by Automated count CBC Lab Routine Stage 3b chronic kidney disease (HCC) Iron deficiency anemia due to chronic blood loss Expected: 05/07/2022, Expires: 07/07/2022 [facility] Work Phone: Comment on above: Expected: 05/07/2022, Expires: 3 Start: 03-30-2022 End: 05-30-2022 Basic metabolic 2000 panel - Serum or Plasma BASIC METABOLIC PNL Lab Routine Primary hypertension Expected: 03/30/2022, Expires: 05/30/2022 [facility] Work Phone: Comment on above: Expected: 03/30/2022, Expires: 2 Start: 03-05-2022 Influenza vaccination INFLUENZA (#1) [facility] Start: 02-20-2022 End: 04-22-2022 Basic metabolic 2000 panel - Serum or Plasma [facility] Work Phone: Comment on above: Expected: 02/20/2022, Expires: 2 Start: 02-19-2022 Hepatitis C antibody, confirmatory test DILATED RETINAL EXAM [facility] Start: 01-21-2022 End: 01-21-2023 SARS-CoV-2 (COVID-19) RNA [Presence] in Respiratory specimen by RANDOLPH with probe detection PRE-PROCEDURE & PRE-OPERATIVE COVID Microbiology Routine Paroxysmal atrial fibrillation (HCC) Expected: 01/21/2022, Expires: 01/21/2023 [facility] Work Phone: Comment on above: Expected: 01/21/2022, Expires: 3 Start: 12-30-2021 Administration of blood product [facility] Work Phone: Start: 12-30-2021 [facility] Work Phone: Start: 12-27-2021 End: 02-26-2022 CBC W Auto Differential panel - Blood CBC + DIFF Lab Routine Anemia, unspecified type Expected: 12/27/2021, Expires: 02/26/2022 [facility] Work Phone: Comment on above: Expected: 12/27/2021, Expires: 2 Start: 12-27-2021 End: 02-26-2022 Iron and Iron binding capacity panel - Serum or Plasma IRON + TIBC Lab Routine Anemia, unspecified type Expected: 12/27/2021, Expires: 02/26/2022 [facility] Work Phone: Comment on above: Expected: 12/27/2021, Expires: 2 Start: 12-15-2021 End: 02-14-2022 ALBUMIN/CREAT RATIO RND UR ALBUMIN/CREAT RATIO RND UR Lab Routine Type 2 diabetes mellitus with diabetic peripheral angiopathy without gangrene, without long-term current use of insulin (HCC) Expected: 12/15/2021, Expires: 02/14/2022 [facility] Work Phone: Comment on above: Expected: 12/15/2021, Expires: 2 Start: 12-11-2021 Hepatitis B surface antibody level LDL CHOLESTEROL [facility] Start: 11-26-2021 End: 01-26-2022 CBC panel - Blood by Automated count CBC Lab Routine PAD (peripheral artery disease) (HCC) Anemia due to chronic illness Expected: 11/26/2021, Expires: 01/26/2022 [facility] Work Phone: Comment on above: Expected: 11/26/2021, Expires: 2 Start: 11-26-2021 End: 01-26-2022 Renal function 2000 panel - Serum or Plasma RENAL FUNCTION PANEL Lab Routine PAD (peripheral artery disease) (HCC) Expected: 11/26/2021, Expires: 01/26/2022 [facility] Work Phone: Comment on above: Expected: 11/26/2021, Expires: 2 Start: 07-13-2021 COVID-19 VACCINE (4 - Booster for Pfizer series) COVID-19 VACCINE (4 - Booster for Pfizer series) [facility] Start: 07-12-2021 Hepatitis B screening URINE ALBUMIN:CREATININE RATIO [facility] Start: 07-05-2021 ADVANCE DIRECTIVE DISCUSSION ADVANCE DIRECTIVE DISCUSSION [facility] Start: 07-05-2021 DEPRESSION ASSESSMENT DEPRESSION ASSESSMENT [facility] Start: 06-12-2021 Hemoglobin A1c/Hemoglobin.total in Blood HBA1C [facility] Start: 05-08-2021 COVID-19 VACCINE (4 - Booster for Pfizer series) COVID-19 VACCINE (4 - Booster for Pfizer series) [facility] Start: 05-08-2021 COVID-19 VACCINE (4 - Pfizer series) COVID-19 VACCINE (4 - Pfizer series) [facility] Start: 2020 RSV Vaccine (1 - 1-dose 75+ series) RSV Vaccine (1 - 1-dose 75+ series) [facility] Start: 07-18-2020 Adult depression screening assessment DEPRESSION SCREENING [facility] Start: 05-25-2019 End: 05-25-2019 Office Visit 05/25/2019 Office Visit Cardiovascular Medicine Mars Chung, DO [address] [place] [address] [facility] Start: 03-05-2019 Influenza vaccination INFLUENZA VACCINE (#1) [facility] Start: 01-03-2019 SHINGRIX VACCINE (2 of 2) SHINGRIX VACCINE (2 of 2) [facility] Start: 01-08-2015 3 comp foot exam completed DIABETIC FOOT EXAM [facility] Start: 2010 Pneumococcal vaccination PNEUMOCOCCAL VACCINE SERIES (1 of 2 - PCV13) [facility] Start: 2005 Hepatitis B Vaccine (1 of 3 - Risk 3-dose series) Hepatitis B Vaccine (1 of 3 - Risk 3-dose series) [facility] Start: 2005 RSV Vaccine (1 - 1-dose 60+ series) RSV Vaccine (1 - 1-dose 60+ series) [facility] Start: 1995 Colonoscopy COLON CANCER SCREENING DISCUSSION [facility] Start: 1995 Zoster vaccine hzv live for subcutaneous use ZOSTER (SHINGLES) VACCINE (1 of 2) [facility] Start: 1985 Fasting lipid profile LIPID SCREENING [facility] Start: 1985 Screening mammography MAMMOGRAM SCREENING DISCUSSION [facility] Start: 1966 Screening for malignant neoplasm of cervix PAP SMEAR DISCUSSION [facility] Start: 1964 Third diphtheria, tetanus and acellular pertussis (DTaP) vaccination TDAP (ADULT) [facility] Start: 1963 Anxiety Screening Anxiety Screening [facility] Start: 1963 BP CONTROLLED (<130/80) BP CONTROLLED (<130/80) [facility] Start: 1963 Depression Screening Depression Screening [facility] Start: 1963 Tetanus vaccination TETANUS [facility] Start: 1945 Hepatitis C antibody, confirmatory test HEPATITIS C VIRUS SCREENING [facility] Start: 1945 Potassium [Moles/Vol] POTASSIUM [facility] Start: 1945 Screening for osteoporosis DEXA SCAN DISCUSSION [facility] Alanine aminotransfe rase [Enzymatic activity/volume] in Serum or Plasma [facility] Albumin [Mass/volume ] in Serum or Plasma [facility] Alkaline phosphatase [Enzymatic activity/volume] in Serum or Plasma [facility] Anion gap in Serum o r Plasma [facility] Anion gap in Serum o r Plasma [facility] Bacteria identified in Unspecified specimen by Anaerobe culture [facility] Basic metabolic 2008 panel with ionized calcium - Serum or Plasma [facility] Bilirubin, total measurement [facility] BUN/Creatinine ratio [facility] BUN/Creatinine ratio [facility] Calcium [Mass/volume ] in Serum or Plasma [facility] Calcium [Mass/volume ] in Serum or Plasma [facility] Carbon dioxide, tota l [Moles/volume] in Central venous blood [facility] Carbon dioxide, tota l [Moles/volume] in Central venous blood [facility] CBC W Auto Different ial panel - Blood [facility] Cholesterol [Mass/vo lume] in Serum or Plasma [facility] Cholesterol in HDL [Mass/volume] in Serum or Plasma [facility] COVID & INFLUENZA A/ B & RSV NAAT, ROUTINE COVID & INFLUENZA A/B & RSV NAAT, ROUTINE Microbiology Routine Influenza-like illness Ordered: 07/05/2023 [facility] Work Phone: Comment on above: Ordered: 07/05/2023 Creatinine [Mass/vol ume] in Serum or Plasma [facility] Creatinine [Mass/vol ume] in Serum or Plasma [facility] End: 01-21-2023 ECG COMPLETE ECG COMPLETE ECG Routine Paroxysmal atrial fibrillation (HCC) 1 Occurrences starting 01/21/2022 until 01/21/2023 [facility] Work Phone: Comment on above: 1 Occurrences starting 01/21/2022 until 01/21/2023 End: 02-09-2023 ECG COMPLETE ECG COMPLETE ECG Routine Paroxysmal atrial fibrillation (HCC) Presence of Watchman left atrial appendage closure device 1 Occurrences starting 02/09/2022 until 02/09/2023 [facility] Work Phone: Comment on above: 1 Occurrences starting 02/09/2022 until 02/09/2023 End: 03-19-2023 ECG COMPLETE ECG COMPLETE ECG Routine Aortic prosthetic valve regurgitation, 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) 1 Occurrences starting 03/19/2022 until 03/19/2023 [facility] Work Phone: Comment on above: 1 Occurrences starting 03/19/2022 until 03/19/2023 ECG COMPLETE ECG COMPLETE ECG 03/19/2022 11:04 AM EDT [facility] ECG COMPLETE [facility] Work Phone: Comment on above: Ordered: 10/18/2023 ECG COMPLETE ECG COMPLETE ECG 11/08/2023 4:52 PM EDT [facility] End: 01-21-2023 ECHO TRANSESOPHAGEAL ECHO TRANSESOPHAGEAL Cardiology Routine Paroxysmal atrial fibrillation (HCC) 1 Occurrences starting 01/21/2022 until 01/21/2023 [facility] Work Phone: Comment on above: 1 Occurrences starting 01/21/2022 until 01/21/2023 End: 02-09-2023 ECHO TRANSESOPHAGEAL ECHO TRANSESOPHAGEAL Cardiology Routine Paroxysmal atrial fibrillation (HCC) Presence of Watchman left atrial appendage closure device 1 Occurrences starting 02/09/2022 until 02/09/2023 [facility] Work Phone: Comment on above: 1 Occurrences starting 02/09/2022 until 02/09/2023 ECHO TRANSESOPHAGEAL ECHO TRANSE SOPHAGEAL Cardiology Routine Longstanding persistent atrial fibrillation (HCC) Presence of Watchman left atrial appendage closure device Ordered: 03/04/2022 [facility] Work Phone: Comment on above: Ordered: 03/04/2022 End: 10-17-2024 Echocardiography ECHO Cardiology Routine Acute systolic CHF (congestive heart failure) (HCC) 1 Occurrences starting 10/18/2023 until 10/17/2024 [facility] Work Phone: Comment on above: 1 Occurrences starting 10/18/2023 until 10/17/2024 End: 01-01-2026 Echocardiography ECHO Cardiology Routine Chronic diastolic (congestive) heart failure (HCC) History of prosthetic aortic valve replacement Acute on chronic diastolic congestive heart failure (HCC) 1 Occurrences starting 01/01/2025 until 01/01/2026 [facility] Work Phone: Comment on above: 1 Occurrences starting 01/01/2025 until 01/01/2026 End: 01-01-2023 EGD DIAGNOSTIC EGD DIAGNOSTIC Endoscopy Routine Acute blood loss anemia Heme + stool Epigastric pain 1 Occurrences starting 01/01/2022 until 01/01/2023 [facility] Work Phone: Comment on above: 1 Occurrences starting 01/01/2022 until 01/01/2023 Erythrocyte mean corpuscular volume determination [facility] Erythrocyte mean corpuscular volume determination [facility] Ferritin [Mass/volum e] in Serum or Plasma [facility] Glucose [Mass/volume ] in Serum or Plasma [facility] Glucose [Mass/volume ] in Serum or Plasma [facility] Hematocrit [Volume Fraction] of Blood [facility] Hematocrit [Volume Fraction] of Blood [facility] Hemoglobin [Mass/vol ume] in Blood [facility] Hemoglobin [Mass/vol ume] in Blood [facility] Hemoglobin.braden rhodeslower [Presence] in Stool by Immunoassay FECAL OCCULT BLOOD TEST Lab Routine Heme + stool Ordered: 12/15/2021 [facility] Work Phone: Comment on above: Ordered: 12/15/2021 Hemoglobin.braden rhodeslower [Presence] in Stool by Immunoassay IMMUNOCHEMICAL FECAL OCCULT BLOOD TEST Lab Routine Acute systolic CHF (congestive heart failure) (HCC) Ordered: 11/04/2023 [facility] Work Phone: Comment on above: Ordered: 11/04/2023 Iron [Mass/mass] in Unspecified specimen [facility] Iron and Iron bindin g capacity panel - Serum or Plasma [facility] Iron saturation [Mas s Fraction] in Serum or Plasma [facility] Leukocytes [#/volume ] in Blood [facility] Leukocytes [#/volume ] in Blood [facility] Low density lipoprot ein cholesterol measurement [facility] Magnesium measurement [facility] Mean corpuscular hemoglobin concentration determination [facility] Mean corpuscular hemoglobin concentration determination [facility] Mean corpuscular hemoglobin determination [facility] Mean corpuscular hemoglobin determination [facility] Measurement of renal function [facility] Measurement of renal function [facility] End: 08-06-2023 Mra head w/o & w/contrast material MRA BRAIN WO/W IVCON Radiology Routine 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 B prohormone N-Terminal [Mass/volume] in Serum or Plasma [facility] Neutrophil count [facility] Neutrophil count [facility] Neutrophil percent differential count [facility] Neutrophil percent differential count [facility] Patient Education [facility] Work Phone: Platelets [#/volume] in Blood [facility] Platelets [#/volume] in Blood [facility] Potassium measurement [facility] Potassium measurement [facility] End: 01-08-2024 PVR ANK PRESS [facility] PVR ANK PRESS [facility] Vascular Lab Routine 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HCC) Pain in both lower legs Atherosclerosis of ramona artery of both lower extremities with intermittent claudication (HCC) 1 Occurrences starting 01/07/2023 until 01/08/2024 [facility] Work Phone: Comment on above: 1 Occurrences starting 01/07/2023 until 01/08/2024 End: 01-08-2024 PVR LEG [facility] PVR LEG [facility] Vascular Lab Routine 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HCC) Pain in both lower legs Atherosclerosis of ramona artery of both lower extremities with intermittent claudication (HCC) 1 Occurrences starting 01/07/2023 until 01/08/2024 [facility] Work Phone: Comment on above: 1 Occurrences starting 01/07/2023 until 01/08/2024 Red blood cell count [facility] Red blood cell count [facility] Red cell distributio n width determination [facility] Red cell distributio n width determination [facility] Serum chloride measurement [facility] Serum chloride measurement [facility] Sodium measurement [facility] Sodium measurement [facility] SURGICAL PATHOLOGY [facility] Work Phone: Comment on above: Release Upon Ordering for 1 Occurrences starting 01/02/2022, 1 completed Total cholesterol:HD L ratio measurement [facility] Total iron binding capacity measurement [facility] Total protein measurement [facility] Triglycerides measurement [facility] Troponin T.cardiac [Mass/volume] in Serum or Plasma by High sensitivity method [facility] Urea nitrogen [Mass/volume] in Serum or Plasma [facility] Urea nitrogen [Mass/volume] in Serum or Plasma [facility] End: 01-08-2024 US CAROTID ARTERIES [facility] US CAROTID ARTERIES [facility] Vascular Lab Routine Bilateral carotid artery stenosis 1 Occurrences starting 01/07/2023 until 01/08/2024 [facility] Work Phone: Comment on above: 1 Occurrences starting 01/07/2023 until 01/08/2024 End: 12-20-2025 US Mesenteric arteries US MESENTERIC ARTERY [facility] Vascular Lab Routine Superior mesenteric artery stenosis (HCC) 1 Occurrences starting 12/20/2024 until 12/20/2025 [facility] Work Phone: Comment on above: 1 Occurrences starting 12/20/2024 until 12/20/2025 VLDL cholesterol measurement [facility] Immunizations Immunization Date Immunization Notes Care Provider Fa mallorie 07-07-2024 influenza, high dose seasonal, preservative-free Melida Eugene BOYLE Work Phone: [facility] 07-07-2024 influenza virus vacc ine, unspecified formulation Carla Burdick MD Work Phone: [facility] 04-12-2023 influenza (HD-IIV4) vaccine, age 65+ yr, high dose, quadrivalent, PF (FLUZONE HIGH-DOSE) Ct (I-Stat) Work Phone: [facility] 04-12-2023 influenza virus vacc ine, unspecified formulation Carla Burdick MD Work Phone: [facility] [facility] 05-22-2022 influenza (aIIV4) vaccine, age 65+ yr, quadrivalent, PF (FLUAD QUADRIVALENT) NA Rey HAMLIN Work Phone: [facility] 05-22-2022 influenza, high-dose , quadrivalent vaccine (FLUZONE HIGH DOSE QUADRIVALENT) Sonny Lund MD Work Phone: [facility] 05-22-2022 influenza virus vacc ine, unspecified formulation Yin Joseph MD Work Phone: [facility] 05-20-2021 influenza, high-dose , quadrivalent vaccine (FLUZONE HIGH DOSE QUADRIVALENT) Chandler Swan MD Work Phone: [facility] 10-09-2020 COVID-19 vaccine, ag e 12+ yr (PFIZER-BIONTECH - PURPLE TOP) Chandler Swan MD Work Phone: [facility] 09-18-2020 COVID-19 vaccine, ag e 12+ yr (Olacabs-BIONTECH - PURPLE TOP) Chandler Swan MD Work Phone: [facility] 05-17-2020 influenza, high-dose , quadrivalent vaccine (FLUZONE HIGH DOSE QUADRIVALENT) Chandler Swan MD Work Phone: [facility] 05-09-2019 influenza, high dose seasonal, preservative-free Chandler Swan MD Work Phone: [facility] 11-08-2018 zoster vaccine recombinant Chandler Swan MD Work Phone: [facility] Work Phone: 05-09-2018 Seasonal trivalent influenza vaccine, adjuvanted, preservative free Chandler Swan MD Work Phone: [facility] 05-05-2017 influenza nasal, unspecified formulation Chandler Swan MD Work Phone: [facility] 05-05-2017 influenza, injectabl e, quadrivalent, contains preservative Chandler Swan MD Work Phone: [facility] 05-05-2017 influenza, seasonal, injectable Chandler Swan MD Work Phone: [facility] 05-05-2017 influenza virus vacc ine, unspecified formulation [facility] 04-05-2017 influenza, injectabl e, quadrivalent, preservative free Ct (I-Stat) Work Phone: [facility] 04-05-2017 influenza, seasonal, injectable [facility] 04-05-2017 influenza, seasonal, injectable, preservative free Chandler Swan MD Work Phone: [facility] 11-25-2016 pneumococcal conjuga te vaccine, 13 valent Chandler Swan MD Work Phone: [facility] Work Phone: 04-07-2016 influenza, high dose seasonal, preservative-free Chandler Swan MD Work Phone: [facility] Work Phone: 01-08-2014 tetanus toxoid, redu javid diphtheria toxoid, and acellular pertussis vaccine, adsorbed Chandler Swan MD Work Phone: [facility] Work Phone: 06-06-2013 pneumococcal polysaccharide vaccine, 23 valent Chandler Swan MD Work Phone: [facility] 05-14-2013 influenza nasal, unspecified formulation Chandler Swan MD Work Phone: [facility] 05-14-2013 influenza virus vacc ine, unspecified formulation Chandler Swan MD Work Phone: [facility] 05-14-2013 influenza, seasonal, injectable, preservative free Chandler Swan MD Work Phone: [facility] 05-20-2012 influenza, seasonal, injectable Chandler Swan MD Work Phone: [facility] 04-29-2011 influenza, seasonal, injectable, preservative free Chandler Swan MD Work Phone: [facility] 04-23-2009 influenza, seasonal, injectable Chandler Swan MD Work Phone: [facility] 07-07-1999 pneumococcal polysaccharide vaccine, 23 valent Chai Encinas MD Work Phone: [facility] Work Phone: 07-05-1999 pneumococcal polysaccharide vaccine, 23 valent Chandler Swan MD Work Phone: [facility] Payers Date Payer Category Payer Self-pay [id number] 2021 Medicare [id number] 2021 Medicare [id number] 2021 Medicare (Managed Care) PRADEEP NICKERSON [id number] 2021 Private Health Insurance [facility] [id number] 2019 Medicare MEDICARE HUMANA HMO PPO MEDICARE HUMANA O PPO xxxxxxxxx 2019- xxxxxxxxx [id number] 2015 Medicare SELF PAY INSURANCE [id number] Unknown [id number] 2.840.1.379866.3.579.2. 462 Unknown [id number] 2.840.1.496079.3.579.2. 462 Unknown [id number] 2.16840.1.567885.3.579.2. 462 Unknown [id number] 2.16840.1.821708.3.579.2. 462 Unknown [id number] 2.16840.1.882238.3.579.2. 462 Unknown [id number] 2.16840.1.301226.3.579.2. 462 Unknown [id number] 2.16840.1.915299.3.579.2. 462 Unknown [id number] 2.16840.1.988570.3.579.2. 462 Unknown [id number] 2.16.840.1.927631.3.579.2. 462 Unknown [id number] 2.16.840.1.913000.3.579.2. 462 Unknown [id number] 2.16.840.1.720119.3.579.2. 462 Unknown [id number] 2.16.840.1.970613.3.579.2. 462 Unknown [id number] 2.16.840.1.683144.3.579.2. 462 Unknown [id number] 2.16.840.1.500888.3.579.2. 462 Unknown [id number] 2.16.840.1.572594.3.579.2. 462 Unknown [id number] 2.16.840.1.937710.3.579.2. 462 Unknown [id number] 2.16840.1.818266.3.579.2. 462 Unknown [id number] 2.16840.1.807062.3.579.2. 462 Unknown [id number] 2.16840.1.350301.3.579.2. 462 Unknown [id number] 2.16.840.1.449721.3.579.2. 462 Unknown [id number] 2.16840.1.538200.3.579.2. 462 Unknown [id number] 2.16.840.1.976023.3.579.2. 462 Unknown [id number] 2.16.840.1.280910.3.579.2. 462 Unknown [id number] 2.16.840.1.057095.3.579.2. 462 Unknown [id number] 2.16.840.1.602757.3.579.2. 462 Unknown [id number] 2.16.840.1.876867.3.579.2. 462 Unknown [id number] 2.16.840.1.871770.3.579.2. 462 Unknown [id number] 2.16.840.1.315243.3.579.2. 462 Unknown [id number] 2.16.840.1.407795.3.579.2. 462 Unknown [id number] 2.16.840.1.826304.3.579.2. 462 Unknown [id number] 2.16.840.1.051946.3.579.2. 462 Unknown [id number] 2.16.840.1.480020.3.579.2. 462 Unknown [id number] 2.16.840.1.583929.3.579.2. 462 Unknown [id number] 2.16.840.1.127277.3.579.2. 462 Unknown [id number] 2.16.840.1.011693.3.579.2. 462 Unknown [id number] 2.16.840.1.709189.3.579.2. 462 Unknown [id number] 2.16.840.1.864608.3.579.2. 462 Unknown [id number] 2.16.840.1.595197.3.579.2. 462 Unknown [id number] 2.16.840.1.413712.3.579.2. 462 Unknown [id number] 2.16.840.1.781730.3.579.2. 462 Unknown [id number] 2.16.840.1.104780.3.579.2. 462 Social History Date Type Detail Facility Start: 01-19-2019 End: 03-22-2025 Tobacco smoking status [facility] Former smoker [facility] Start: 01-19-2019 Tobacco Comment smoked for a y ear, 50 years ago [facility] Start: 01-19-2019 Alcohol Comment occasional wine [employer] Start: 1945 Sex Assigned At Not on file [facility] Start: 07-05-1965 End: 02-11-1970 History of tobacco use Current smoker [facility] Start: 08-10-2019 End: 04-07-2024 Tobacco use and exposure Smokeless tobacco non-user [facility] Start: 09-16-2021 End: 12-15-2021 Alcohol intake Current drinker of alcohol (finding) [facility] Start: 09-16-2021 End: 01-07-2023 Alcohol intake [facility] Start: 10-25-2019 End: 10-29-2019 History SDOH Alcohol Frequency 2 [facility] Start: 10-25-2019 End: 10-29-2019 History SDOH Alcohol Std Drinks 1 [facility] Start: 01-31-2019 History SDOH Alcohol Comment red wine 2-3 times a week- occasional [facility] Start: 10-29-2019 History SDOH Social Connections Phone 5 [facility] Start: 10-29-2019 End: 02-24-2022 History SDOH [facility] 3 [facility] Start: 10-29-2019 Education 15 [facility] Start: 09-05-2021 End: 05-14-2022 Exposure to SARS-CoV-2 (event) Not sure [facility] Start: 10-14-2021 End: 01-23-2022 Exposure to SARS-CoV-2 (event) Unable to assess [facility] Start: 02-13-2021 Tobacco smoking stat us [facility] Unknown if ever smoked [facility] Work Phone: Start: 1945 Sex Assigned At Female [facility] Start: 07-05-1965 End: 02-11-1970 History of tobacco use Cigarette Smoker [facility] Start: 06-08-2022 End: 12-20-2024 Alcohol intake Ex-drinker (finding) [facility] Start: 01-07-2023 End: 12-11-2024 Tobacco use panel [facility] Start: 06-05-2012 How hard is it for y ou to pay for the very basics like food, housing, medical care, and heating Patient refused [facility] (I/We) worried marcella forman (my/our) food would run out before (I/we) got money to buy more. DK or Refused [facility] Do you belong to any clubs or organizations such as taoism groups, unions, fraternal or athletic groups, or school groups? Yes [facility] Are you now , , , , never or living with a partner? [facility] How often to you hav e a drink containing alcohol? Monthly or less [facility] How many standard dr inks containing alcohol do you have on a typical day? 1 or 2 [facility] How often do you hav e 6 or more drinks on 1 occasion? Never [facility] Do you feel stress - tense, restless, nervous, or anxious, or unable to sleep at night because your mind is troubled all the time - these days [OSQ] Not at all [facility] Has the [employer], [employer], oil, or water [employer] threatened to shut off services in your home in past 12Mo No [facility] (I/We) worried marcella forman (my/our) food would run out before (I/we) got money to buy more. Never true [facility] Start: 01-07-2025 End: 01-11-2025 Tobacco smoking status NHIS Never smoked tobacco (finding) [facility] Start: 11-15-2017 Alcohol Alcohol [facility] Start: 11-15-2017 Drugs Drugs [facility] Start: 11-15-2017 Lives Lives [facility] Start: 01-11-2025 Tobacco Use Tobacco Use [facility] Medical Equipment Procedure Code Equipment Code Equipment Origin al Text Equipment Identifier Dates Test blood sugar (s) 2 times daily. Dx: Type 2 DM - Controlled E11.9 Insulin: No [id number] Start: 01-19-2019 Comment on above: Test blood sugar(s) 2 times daily. Dx: Type 2 DM - Controlled E11.9 Insulin: No [id number] Sania Xt [id number] Start: 10-21-2020 [id number] [employer] Selam Surecaro [id number] Start: 10-21-2020 [id number] [employer]ievan [id number] Start: 10-21-2020 Goals Date Patient Goal Desired Activity /State Personal health goal Functional Status Date Assessment Result Facility 01-11-2025 Functional status Chair [facility] Work Phone: 12-12-2024 Are you deaf, or do you have serious difficulty hearing Yes 12/12/2024 10:12 AM EDT Lizeth Jordan RN Yes [facility] 12-12-2024 Are you blind, or do you have serious difficulty seeing, even when wearing glasses No 12/12/2024 10:12 AM EDT Lizeth Jordan RN No [facility] 12-12-2024 Do you have serious difficulty walking or climbing stairs No 12/12/2024 10:12 AM EDT Lizeth Jordan RN No [facility] 12-12-2024 Do you have difficul ty dressing or bathing No 12/12/2024 10:12 AM EDT Lizeth Jordan RN No [facility] 12-12-2024 Because of a physica l, mental, or emotional condition, do you have difficulty doing errands alone such as visiting a physician's office or shopping No 12/12/2024 10:12 AM EDT Lizeth Jordan RN No [facility] 11-12-2023 Are you deaf, or do you have serious difficulty hearing No 11/12/2023 3:37 PM EDT Raina Coppola RN No [facility] 11-12-2023 Are you blind, or do you have serious difficulty seeing, even when wearing glasses No 11/12/2023 3:37 PM EDT Raina Coppola RN No [facility] 11-12-2023 Do you have serious difficulty walking or climbing stairs No 11/12/2023 3:37 PM EDRaina Kaplan RN No [facility] 11-12-2023 Do you have difficul ty dressing or bathing No 11/12/2023 3:37 PM Raina Camp RN No [facility] 11-12-2023 Because of a physica l, mental, or emotional condition, do you have difficulty doing errands alone such as visiting a physician's office or shopping No 11/12/2023 3:37 PM Raina Camp RN No [facility] Mental Status Date Assessment Result Facility 03-27-2025 Cognitive function Voice/Name [facility] Work Phone: 03-20-2025 Cognitive function Awake [facility] Work Phone: 01-11-2025 Cognitive function Voice/Name [facility] Work Phone: 12-12-2024 Because of a physica l, mental, or emotional condition, do you have serious difficulty concentrating, remembering, or making decisions No 12/12/2024 10:12 AM EDT Lizeth Jordan RN No [facility] 11-12-2023 Because of a physica l, mental, or emotional condition, do you have serious difficulty concentrating, remembering, or making decisions No 11/12/2023 3:37 PM EDT Raina Coppola RN No [facility] 12-30-2021 Cognitive function Voice/Name [facility] Work Phone: Clinical Notes 02-15-2021 to 03-29-2025 Note Date & Type Note Facility 03-29-2025 Progress note Note Date/Time March 29, 2025 4:05pm [facility] [address] [place] [id number] Progress Note - Wound Care 03/29/25 1237 MR#: [id number] Acct: [id number] Name: BERTA SANCHES Rep #:[id number] 15 : 1945 79 From: Ebony collins MD PCP: Dr. Vincent Flores MD Status:REG R CR Location: History of Present Illness Date of Service: 03/29/25 Chief Complaint: Bilateral lower extremity ulcers History of Wound: Ms. Sanches is a 70-year-old who was referred to the wound center by her PCP due to nonhealing bilateral lower extremity ulceration. Said to have started months ago during a prolonged hospitalization in [place]. Bilateral foot/heel and right kaur. She has been applying Neosporin without anysignificant improvement. She reports a history of vascular surgery in [place]. 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 No significant tobacco use, smoked for about 6 months quit over 50 years ago. She reports a history of "borderline diabetes". Currently not on medication. Appetite is fair, concern for recent significant weight loss.. Otherwise, she states that she feels well. Progress of Wound: Still difficulty with dressings staying on so has been using Band-Aids to keep dressing in place. Slight maceration noted on the right. Otherwise, no acute concerns reported at this time. Largely, homebound. Objective Data Objective Data Vital Signs: Vital Signs Temp Pulse Resp BP Pulse Ox O2 Del Method 98.2 F 89 16 145/67 H 100 Room Air 03/29/25 11:05 03/29/25 11:05 03/29/25 11:05 03/29/25 11:05 03/29/25 11:05 03/29/25 11:05 Oxygen Delivery Method Room Air Charges/Coding Procedures Integumentary 111xxx-113xx: 26506 Etelvina subq tissue 20 sq cm/< Physical Exam Const alert, oriented x3 and no apparent distress General Appearance: cooperative, well kempt and well developed HEENT normocephalic and head/scalp atraumatic Eyes EOMs intact bilaterally Neck full ROM General: normal visual inspection Resp normal respiratory effort Effort and Inspection: able to speak in complete sentences Skin Wounds: wounds noted size Size: See clinical note, bed with slough, margins wellapproximated, no odor, open and surrounding erythema Neuro oriented x3, CN's II-XII intact bilaterally, moves all extremities and no focal motor deficits Psych mental status grossly normal, thought process normal, cooperative and affect normal Debridement Note Debridement Note Wound debrided: Right kaur Type of Debridement: Excisional debridement Anesthesia Used: 5% Lidocaine Gel Depth: Down to and including healthy tissue and in the subcutaneous layer Percentage of wound debrided: 100 Instrument Used: 3mm curette Tissue Removed: Slough and devitalized tissue Severity: Fat Layer Exposed Amount of bleeding with debridement: Mild Bleeding Controlled with: Pressure Patient tolerated procedure: Patient tolerated procedure well Post-Debridement Measurements and Additional Note: Post-Debridement Measurements/Treatment WC - Nurse 1 - General Ulcer Assessment Start: 03/08/25 09:42 Freq: Status: Active Protocol: TOMASZ Activity Type Activity Date Activity User E-sign Co-sign Detail Recorded Client Recorded Date Recorded By Document 03/08/25 09:53 KW [id number] 03/08/25 10:07 KW Document 03/15/25 11:36 ML [id number] 03/15/25 11:44 ML Document 03/29/25 11:05 [id number] 03/29/25 11:15 LINDSAY 03/08/25 03/15/25 03/29/25 09:53 11:36 11:05 WC - Today's Visit Information Type of service Follow-up Visit Follow-up Visit Follow-up Visit (Physician/SCRAP CHARGER (Physician/SCRAP CHARGER (Physician/SCRAP CHARGER ) ) ) Arrival Mode Ambulatory Ambulatory Ambulatory Transfer Assistance None None Accompanied by Patient Identification Verified (Name & Yes Yes Yes ) Patient Requires Transmission-Based No No Precautions Safety Precautions Fall Prevention Vital Signs Temperature (97.8 F-99.1 F) 96.8 F L 96.4 F L 98.2 F Temperature Source Temporal Temporal Temporal Pulse Rate (60-100) 75 87 89 Pulse Location Monitor Monitor Monitor Respiratory Rate (12-18) 18 14 16 Respiratory rate source Observation Observation Observation Pulse Oximetry 100 Oxygen Delivery Method Room Air Room Air Blood Pressure (90/60-120/80) 145/40 H 133/57 H 145/67 H Blood Pressure Mean (mm Hg) 75 82 93 Source Monitor Monitor Monitor Position Sitting Sitting Semi-Fowlers Blood Pressure Location Right Arm Right Arm Left Arm History Since Last Visit- (Skip if this is Patient's initial visit) Have you changed medications since your No No No last visit? Any new allergies or adverse reactions No No No Had a fall/change in ADL's that may No No No increase risk of falls Signs or symptoms of abuse and/or No No neglect since last visit Have you been in the hospital since your No No last visit? Has dressing in place as prescribed Yes Yes No Has compression in place as prescribed Yes N/A No Has offloadiing in place as prescribed N/A N/A Experienced any changes in pain level or No No No management Left Footwear Regular Shoe Regular Shoe Right Footwear Regular Shoe Regular Shoe Pain Scale: 0-10 Numeric Is Patient Pain Free? Yes Yes No right heel -Description Sharp -Intensity 4 -Alleviating Factors/Interventions Turning/ Repositioning left heel -Description Sharp -Intensity 2 - Nurse 1 - General Ulcer Measurement Start: 03/08/25 09:42 Freq: Status: Active Protocol: Activity Type Activity Date Activity User E-sign Co-sign Detail Recorded Client Recorded Date Recorded By Document 03/08/25 09:53 KW [id number] 03/08/25 10:07 KW Document 03/15/25 11:36 ML [id number] 03/15/25 11:44 ML Document 03/29/25 11:15 [id number] 03/29/25 11:38 03/08/25 03/15/25 03/29/25 09:53 11:36 11:15 Wound Center Nurse 1 #4 L POSTERIOR FOOT -Current Size (cm) - Length 0.1 0.1 0.1 -Current Size (cm) - Width 0.1 0.1 0.1 -Current Size (cm) - Depth 0 0.1 0.1 -Total Square Cm 0.01 0.01 0.01 -Date of Last Picture (Recall this 03/08/25 03/29/25 field) -Photo Taken Yes -Tunneling No -Undermining/Tunneling No -Circular Undermining No -Exudate Amt Small None Present -Exudate Type Yellow/Green -Wound Margin Flat & Intact -Granulation Amt Small (1-33%) Large (67-100%) -Granulation Quality [place] -Slough/Fibrin Yes No -Necrosis Amt Small (1-33%) None Present (0 %) -Necrotic Tissue Type Adherent Slough -Structure Exposed N/A -Texture (Violet-wound Skin Appearance) Assessed,Callus Assessed No Abnormality, Assessed -Moisture (Violet-wound Skin Appearance) Assessed,Dry/ Assessed Assessed,Dry/ Scaly Scaly -Color (Violet-wound Skin Appearance) Assessed Assessed Assessed -Temperature (Violet-wound Skin No Abnormality No Abnormality No Abnormality Appearance) (Pt Warm) (Pt Warm) (Pt Warm) -Tenderness on Palpation (Violet-wound No Yes No Skin Appearance) -Ulcer Cleansing Soap and Water Soap and Water Soap and Water -Foul Odor after Cleansing No No -Anesthetic Used 5% Lidocaine 5% Lidocaine Gel Gel #3 LT HEEL -Current Size (cm) - Length 0.1 0.1 0.1 -Current Size (cm) - Width 0.1 0.1 0.1 -Current Size (cm) - Depth 0 0.1 0.1 -Total Square Cm 0.01 0.01 0.01 -Date of Last Picture (Recall this 03/29/25 field) -Photo Taken Yes -Tunneling No -Undermining/Tunneling No -Circular Undermining No -Exudate Amt None Present None Present None Present -Wound Margin Flat & Intact -Granulation Amt None Present (0 %) -Slough/Fibrin No No -Necrosis Amt None Present (0 %) -Texture (Violet-wound Skin Appearance) Assessed,Callus Assessed Assessed -Moisture (Violet-wound Skin Appearance) Assessed,Dry/ Assessed Assessed,Dry/ Scaly Scaly -Color (Violet-wound Skin Appearance) Assessed Assessed Assessed -Temperature (Violet-wound Skin No Abnormality No Abnormality No Abnormality Appearance) (Pt Warm) (Pt Warm) (Pt Warm) -Tenderness on Palpation (Violet-wound No Yes No Skin Appearance) -Ulcer Cleansing Soap and Water Soap and Water Soap and Water -Foul Odor after Cleansing No No No -Anesthetic Used 5% Lidocaine 5% Lidocaine Gel Gel #2 RT HEEL -Current Size (cm) - Length 0.2 0.1 1.5 -Current Size (cm) - Width 1.5 0.1 0.5 -Current Size (cm) - Depth 0.1 0.1 0.1 -Total Square Cm 0.30 0.01 0.75 -Date of Last Picture (Recall this 03/08/25 03/29/25 field) -Photo Taken Yes -Tunneling No -Undermining/Tunneling No -Circular Undermining No -Exudate Amt Small None Present Medium -Exudate Type Serosanguineous Serosanguineous -Wound Margin Distinct, Distinct, Outline Outline Attached Attached -Granulation Amt Large (67-100%) None Present (0 Small (1-33%) %) -Granulation Quality [place] -Slough/Fibrin Yes -Necrosis Amt None Present (0 Large (67-100%) %) -Necrotic Tissue Type Adherent Slough -Structure Exposed N/A -Texture (Violet-wound Skin Appearance) Assessed,Callus Assessed Assessed, Localized Edema -Moisture (Violet-wound Skin Appearance) Assessed,Dry/ Assessed Assessed Scaly -Color (Violet-wound Skin Appearance) Assessed Assessed Assessed -Temperature (Violet-wound Skin No Abnormality No Abnormality No Abnormality Appearance) (Pt Warm) (Pt Warm) (Pt Warm) -Tenderness on Palpation (Violet-wound No Yes No Skin Appearance) -Ulcer Cleansing Soap and Water Soap and Water Soap and Water -Foul Odor after Cleansing No No No -Anesthetic Used 5% Lidocaine 5% Lidocaine 5% Lidocaine Gel Gel Gel #1 RT KAUR CLUSTER -Combined with other wound No -Current Size (cm) - Length 0.5 0.3 0.3 -Current Size (cm) - Width 9 0.1 0.4 -Current Size (cm) - Depth 0.1 0.1 0.1 -Total Square Cm 4.5 0.03 0.12 -Date of Last Picture (Recall this 03/08/25 03/29/25 field) -Photo Taken Yes -Tunneling No -Undermining/Tunneling No -Circular Undermining No -Exudate Amt Medium Small None Present -Exudate Type Serosanguineous Yellow/Green Serosanguineous -Wound Margin Distinct, Distinct, Distinct, Outline Outline Outline Attached Attached Attached -Granulation Amt Medium (34-66%) Small (1-33%) Large (67-100%) -Granulation Quality Red Red -Slough/Fibrin Yes No -Necrosis Amt Medium (34-66%) Small (1-33%) None Present (0 %) -Necrotic Tissue Type Adherent Slough Adherent Slough Adherent Slough -Structure Exposed N/A -Texture (Violet-wound Skin Appearance) Assessed Assessed No Abnormality, Assessed -Moisture (Violet-wound Skin Appearance) Assessed Assessed No Abnormality, Assessed -Color (Violet-wound Skin Appearance) Assessed, Assessed No Abnormality, Hemosiderin Assessed Staining -Temperature (Violet-wound Skin No Abnormality No Abnormality No Abnormality Appearance) (Pt Warm) (Pt Warm) (Pt Warm) -Tenderness on Palpation (Violet-wound No Yes No Skin Appearance) -Ulcer Cleansing Soap and Water Soap and Water Soap and Water -Foul Odor after Cleansing No No No -Anesthetic Used 5% Lidocaine 5% Lidocaine 5% Lidocaine Gel Gel Gel Lower Limb Edema Present NA Right Calf (cm) 28.5 21 Right Ankle (cm) 19.5 19 Left Calf (cm) 28.5 25 Left Ankle (cm) 18.5 20 WC - Nurse 2 - General Ulcer CM Notes Start: 03/08/25 09:42 Freq: Status: Active Protocol: Activity Type Activity Date Activity User E-sign Co-sign Detail Recorded Client Recorded Date Recorded By Document 03/08/25 10:43 [id number] 03/08/25 10:54 GM Document 03/15/25 12:00 GM [id number] 03/15/25 12:09 GM Edit Result 03/15/25 12:00 GM (1) [id number] 03/21/25 12:09 GM Document 03/29/25 11:41 JF [id number] 03/29/25 11:46 JF (1) #2 RT HEEL - Debridement - Subq, 1st 20sq cm No => Yes 03/08/25 03/15/25 03/29/25 10:43 12:00 11:41 Wound Center Nurse 2 #4 L POSTERIOR FOOT -Time 10:53 12:01 -Correct Patient Yes Yes Yes -Correct Side, Site, Position Yes Yes No -Correct Procedure Yes Yes No -Procedure Performed Yes Yes No -Type of Procedure Debridement Debridement -Clinical Debridement Subcutaneous Epidermis / Dermis -Tissue Removed Subcutaneous Epidermis -Post Debridement (cm) - Length 0.2 0.5 0 -Post Debridement (cm) - Width 1.2 0.1 0 -Post Debridement (cm) - Depth 0.1 0.1 0 -Total Square (Post) (cm) 0.24 0.05 0 -Area of Debridement (cm) - Length 0.2 0.5 0 -Area of Debridement (cm) - Width 1.2 0.1 0 -Total Square (Area) (cm) 0.24 0.05 0 -Tunneling No No -Undermining/Tunneling No No -Circular Undermining No No -Wound/Ulcer Outcome Not Healed Not Healed Healed- Epithelialized -Ulcer Cleansing Rinsed/ Rinsed/ Irrigated with Irrigated with Saline Saline -Foul Odor after Cleansing No No -Bioengineered Tissue No No -Bleeding Controlled with Pressure Pressure -Treatment Response Procedure Procedure Tolerated Well Tolerated Well -Offloading No No -Debridement - Open, 1st 20sq cm Yes -Debridement - Subq, 1st 20sq cm Yes #3 LT HEEL -Time 10:53 12:02 11:42 -Correct Patient Yes Yes Yes -Correct Side, Site, Position Yes Yes Yes -Correct Procedure Yes Yes Yes -Procedure Performed Yes Yes Yes -Type of Procedure Debridement Debridement Debridement -Clinical Debridement Subcutaneous Epidermis / Subcutaneous Dermis -Tissue Removed Subcutaneous Epidermis, Subcutaneous Dermis -Post Debridement (cm) - Length 0.4 0.1 0.1 -Post Debridement (cm) - Width 0.2 0.3 0.7 -Post Debridement (cm) - Depth 0.1 0.1 0.1 -Total Square (Post) (cm) 0.08 0.03 0.07 -Area of Debridement (cm) - Length 0.4 0.1 0.1 -Area of Debridement (cm) - Width 0.2 0.3 0.7 -Total Square (Area) (cm) 0.08 0.03 0.07 -Tunneling No No No -Undermining/Tunneling No No No -Circular Undermining No No No -Wound/Ulcer Outcome Not Healed Not Healed Not Healed -Ulcer Cleansing Rinsed/ Rinsed/ Rinsed/ Irrigated with Irrigated with Irrigated with Saline Saline Saline -Foul Odor after Cleansing No No No -Bioengineered Tissue No No No -Bleeding Controlled with Pressure Pressure Pressure -Treatment Response Procedure Procedure Procedure Tolerated Well Tolerated Well Tolerated Well -Offloading No No -Debridement - Open, 1st 20sq cm No -Debridement - Subq, 1st 20sq cm No No #2 RT HEEL -Time 10:47 12:02 11:43 -Correct Patient Yes Yes Yes -Correct Side, Site, Position Yes Yes Yes -Correct Procedure Yes Yes Yes -Procedure Performed Yes Yes Yes -Type of Procedure Debridement Debridement Debridement -Clinical Debridement Subcutaneous Subcutaneous Subcutaneous -Tissue Removed Subcutaneous Subcutaneous Subcutaneous -Post Debridement (cm) - Length 1.5 1.8 1.7 -Post Debridement (cm) - Width 0.3 0.3 0.1 -Post Debridement (cm) - Depth 0.1 0.1 0.1 -Total Square (Post) (cm) 0.45 0.54 0.17 -Area of Debridement (cm) - Length 1.5 1.8 1.7 -Area of Debridement (cm) - Width 0.3 0.3 0.1 -Total Square (Area) (cm) 0.45 0.54 0.17 -Tunneling No No No -Undermining/Tunneling No No No -Circular Undermining No No No -Wound/Ulcer Outcome Not Healed Not Healed Not Healed -Ulcer Cleansing Rinsed/ Rinsed/ Rinsed/ Irrigated with Irrigated with Irrigated with Saline Saline Saline -Foul Odor after Cleansing No No No -Bioengineered Tissue No No No -Bleeding Controlled with Pressure Pressure Pressure -Treatment Response Procedure Procedure Procedure Tolerated Well Tolerated Well Tolerated Well -Offloading No No No -Debridement - Subq, 1st 20sq cm No Yes Yes #1 RT KAUR CLUSTER -Time 10:45 12:03 11:44 -Correct Patient Yes Yes Yes -Correct Side, Site, Position Yes Yes Yes -Correct Procedure Yes Yes Yes -Procedure Performed Yes Yes Yes -Type of Procedure Debridement Debridement Debridement -Clinical Debridement Subcutaneous Subcutaneous Subcutaneous -Tissue Removed Subcutaneous Subcutaneous Subcutaneous -Post Debridement (cm) - Length 0.4 0.3 0.5 -Post Debridement (cm) - Width 0.5 0.4 0.4 -Post Debridement (cm) - Depth 0.1 0.1 0.1 -Total Square (Post) (cm) 0.20 0.12 0.20 -Area of Debridement (cm) - Length 0.4 0.3 0.5 -Area of Debridement (cm) - Width 0.5 0.4 0.4 -Total Square (Area) (cm) 0.20 0.12 0.20 -Tunneling No No No -Undermining/Tunneling No No No -Circular Undermining No No No -Wound/Ulcer Outcome Not Healed Not Healed Not Healed -Ulcer Cleansing Rinsed/ Rinsed/ Rinsed/ Irrigated with Irrigated with Irrigated with Saline Saline Saline -Foul Odor after Cleansing No No No -Bioengineered Tissue No No No -Bleeding Controlled with Pressure Pressure Pressure -Treatment Response Procedure Procedure Procedure Tolerated Well Tolerated Well Tolerated Well -Offloading No No No -Debridement - Subq, 1st 20sq cm No No No Pain Scale: 0-10 Numeric Is Patient Pain Free? Yes Yes Yes WC - Nurse 3 - General Ulcer D/C NN Start: 03/08/25 09:42 Freq: Status: Active Protocol: Activity Type Activity Date Activity User E-sign Co-sign Detail Recorded Client Recorded Date Recorded By Document 03/08/25 11:17 MT [id number] 03/08/25 11:20 MT Document 03/15/25 12:32 RB [id number] 03/15/25 12:34 RB Document 03/29/25 11:58 JF [id number] 03/29/25 12:01 JF 03/08/25 03/15/25 03/29/25 11:17 12:32 11:58 Wound Care Center Nurse 3 #4 L POSTERIOR FOOT -Foul Odor after Cleansing No -Negative Pressure Wound Therapy N/A -Primary Dressing Applied Promogran, Silicone Border Foam 4x4 -Other Dressing ADAPTIC -Primary Dressing Covered/Secured with Dry Gauze -Promogran 1 -Silicone Border Foam 4x4 1 #3 LT HEEL -Ulcer Cleansing Rinsed/ Irrigated with Saline -Foul Odor after Cleansing No No -Negative Pressure Wound Therapy N/A -Primary Dressing Applied Silicone Border Promogran C Hydrogel, Foam 4x4 NonAdherent Contact Layer -Primary Dressing Covered/Secured with Dry Gauze,Dry Dry Gauze & Gauze & Roll Roll Gauze, Gauze,Secured Secured with with Tape Tape -Hydrogel 0 -Promogran 1 -Silicone Border Foam 4x4 1 #2 RT HEEL -Ulcer Cleansing Rinsed/ Irrigated with Saline -Foul Odor after Cleansing No -Primary Dressing Applied Silicone Border C Hydrogel, Foam 4x4 NonAdherent Contact Layer -Other Dressing PROMOGRAN -Primary Dressing Covered/Secured with Dry Gauze,Dry Dry Gauze & Gauze & Roll Roll Gauze, Gauze,Secured Secured with with Tape Tape -Hydrogel 0 -Silicone Border Foam 4x4 1 #1 RT KAUR CLUSTER -Ulcer Cleansing Rinsed/ Irrigated with Saline -Foul Odor after Cleansing No -Primary Dressing Applied Silicone Border C Hydrogel, Foam 4x4 NonAdherent Contact Layer -Other Dressing PROMOGRAN -Primary Dressing Covered/Secured with Dry Gauze & Roll Gauze, Secured with Tape -Hydrogel 0 -Silicone Border Foam 4x4 1 -Wound Comment(s) PT REFUSED TUBIGRIP BILAT Treatment Response Procedure Tolerated Well Pain Scale: 0-10 Numeric Is Patient Pain Free? Yes Yes Yes WC - Visit Discharge Discharge Condition Stable Stable Ambulatory Status Ambulatory Ambulatory Transportation Private Auto Private Auto Accompanied by Medication Reconcilliation completed & No Yes provided to patient/care provider Clinical Summary of Care Provided Yes Yes Additional Wound Wound debrided: Right foot Type of Debridement: Excisional debridement Anesthesia Used: 5% Lidocaine Gel Depth: Down to and including healthy tissue and in the subcutaneous layer Percentage of wound debrided: 100 Instrument Used: 3mm curette Tissue Removed: Devitalized tissue Severity: Limited To Skin Breakdown Amount of bleeding with debridement: Mild Bleeding Controlled with: Pressure Patient tolerated procedure: Patient tolerated procedure well Additional Wound Wound debrided: Left heel Type of Debridement: Excisional debridement Anesthesia Used: 5% Lidocaine Gel Depth: Down to and including healthy tissue Percentage of wound debrided: 100 Instrument Used: 3mm curette Tissue Removed: Devitalized tissue Severity: Limited To Skin Breakdown Amount of bleeding with debridement: None Assessment/Plan Assessment/Plan (1) Ulcer of right lower extremity with fat layer exposed: CODE(S): L97.912 - Non-pressure chronic ulcer of unspecified part of rightlower leg with fat layer exposed (2) Ulcer of right foot with fat layer exposed: CODE(S): L97.512 - Non-pressure chronic ulcer of other part of right foot with fat layer exposed (3) Ulcer of left foot with fat layer exposed: CODE(S): L97.522 - Non-pressure chronic ulcer of other part of left foot with fat layer exposed (4) PAD (peripheral artery disease): CODE(S): I73.9 - Peripheral vascular disease, unspecified (5) PAF (paroxysmal atrial fibrillation): CODE(S): I48.0 - Paroxysmal atrial fibrillation (6) Type 2 diabetes mellitus: CODE(S): E11.9 - Type 2 diabetes mellitus without complications (7) Chronic kidney disease, stage 3b: CODE(S): N18.32 - Chronic kidney disease, stage 3b PLAN: Plan Debridement done as documented above, procedure was well-tolerated. As above, her is still having difficulty with keeping dressing in place and Band-Aids to help keep in place. Some maceration noted to the right foot. Otherwise, no acute concerns. So I believe she would benefit from home health coming in a couple days weekly to help with dressing changes. Left foot is healed. For now continue moistened Promogran to all areas of ulceration, cover bilateral foot with Adaptic and then foam dressing. May wrap right foot with gauze/Coban wrap to help dressing stay in place. Cover kaur with foam dressing. Continue adequate moisturizing. Patient and voiced understanding. Single-layer Tubigrip for edema management, mild compression due to peripheral arterial disease. Continue diuretic management per PCP. Leg elevation discussed and exercise as tolerated. Optimal diabetes control recommended. Optimal dietary intake. Their questions were answered, they were advised to let us know if he had any further questions or concerns. Follow-up in a week or sooner if needed. This note was generated with [employer] software. It may contain incorrectwords, spelling, and punctuation that were not noted in checking the note beforesigning. 03/29/25 1605 <Electronically signed by Ebony Cerrato MD> Cosigner Signature (if applicable): CC: ~ Signed [facility] Work Phone: [phone] Progress note Author Ebony Cerrato [facility] Note Date/Time March 15, 2025 4:29pm [facility] [address] [place] [address] Progress Note - Wound Care 03/15/25 1309 MR#: [id number] Acct: [id number] Name: BERTA SANCHES Rep #:[id number] 17 : 1945 79 From: Ebony collins MD PCP: Dr. Vincent Flores MD Status:REG R CR Location: History of Present Illness Date of Service: 03/15/25 Chief Complaint: Bilateral lower extremity ulcers History of Wound: Ms. Sanches is a 70-year-old who was referred to the wound center by her PCP due to nonhealing bilateral lower extremity ulceration. Said to have started months ago during a prolonged hospitalization in [place]. Bilateral foot/heel and right kaur. She has been applying Neosporin without anysignificant improvement. She reports a history of vascular surgery in [place]. 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 No significant tobacco use, smoked for about 6 months quit over 50 years ago. She reports a history of "borderline diabetes". Currently not on medication. Appetite is fair, concern for recent significant weight loss.. Otherwise, she states that she feels well. Progress of Wound: Difficulty with dressing staying in place especially to the right lower extremity. Some worsening noted to this. Otherwise, grossly stable. Still hassignificant bilateral lower extremity edema. She states that bumetanide has been restarted. Objective Data Objective Data Vital Signs: Vital Signs Temp Pulse Resp BP O2 Del Method 96.4 F L 87 14 133/57 H Room Air 03/15/25 11:36 03/15/25 11:36 03/15/25 11:36 03/15/25 11:36 03/08/25 09:53 Oxygen Delivery Method Room Air Charges/Coding Procedures Integumentary 111xxx-113xx: 27292 Etelvina subq tissue 20 sq cm/< Physical Exam Const alert, oriented x3 and no apparent distress General Appearance: cooperative, well kempt and well developed HEENT normocephalic and head/scalp atraumatic Eyes EOMs intact bilaterally Neck full ROM General: normal visual inspection Resp normal respiratory effort Effort and Inspection: able to speak in complete sentences Skin Wounds: wounds noted size Size: See clinical note, bed with slough, margins wellapproximated, no odor, open and surrounding erythema Neuro oriented x3, CN's II-XII intact bilaterally, moves all extremities and no focal motor deficits Psych mental status grossly normal, thought process normal, cooperative and affect normal Debridement Note Debridement Note Wound debrided: Right kaur Type of Debridement: Excisional debridement Anesthesia Used: 5% Lidocaine Gel Depth: Down to and including healthy tissue and in the subcutaneous layer Percentage of wound debrided: 100 Instrument Used: 3mm curette Tissue Removed: Slough and devitalized tissue Severity: Fat Layer Exposed Amount of bleeding with debridement: Mild Bleeding Controlled with: Pressure Patient tolerated procedure: Patient tolerated procedure well Post-Debridement Measurements and Additional Note: Post-Debridement Measurements/Treatment - Nurse 1 - General Ulcer Assessment Start: 03/08/25 09:42 Freq: Status: Active Protocol: [email or web address] Activity Type Activity Date Activity User E-sign Co-sign Detail Recorded Client Recorded Date Recorded By Document 03/08/25 09:53 KW [id number] 03/08/25 10:07 KW Document 03/15/25 11:36 ML [id number] 03/15/25 11:44 ML 03/08/25 03/15/25 09:53 11:36 - Today's Visit Information Type of service Follow-up Visit Follow-up Visit (Physician/SCRAP CHARGER (Physician/SCRAP CHARGER ) ) Arrival Mode Ambulatory Ambulatory Transfer Assistance None Accompanied by Patient Identification Verified (Name & Yes Yes ) Patient Requires Transmission-Based No Precautions Vital Signs Temperature (97.8 F-99.1 F) 96.8 F L 96.4 F L Temperature Source Temporal Temporal Pulse Rate (60-100) 75 87 Pulse Location Monitor Monitor Respiratory Rate (12-18) 18 14 Respiratory rate source Observation Observation Oxygen Delivery Method Room Air Blood Pressure (90/60-120/80) 145/40 H 133/57 H Blood Pressure Mean (mm Hg) 75 82 Source Monitor Monitor Position Sitting Sitting Blood Pressure Location Right Arm Right Arm History Since Last Visit- (Skip if this is Patient's initial visit) Have you changed medications since your No No last visit? Any new allergies or adverse reactions No No Had a fall/change in ADL's that may No No increase risk of falls Signs or symptoms of abuse and/or No neglect since last visit Have you been in the hospital since your No last visit? Has dressing in place as prescribed Yes Yes Has compression in place as prescribed Yes N/A Has offloadiing in place as prescribed N/A N/A Experienced any changes in pain level or No No management Left Footwear Regular Shoe Right Footwear Regular Shoe Pain Scale: 0-10 Numeric Is Patient Pain Free? Yes Yes WC - Nurse 1 - General Ulcer Measurement Start: 03/08/25 09:42 Freq: Status: Active Protocol: Activity Type Activity Date Activity User E-sign Co-sign Detail Recorded Client Recorded Date Recorded By Document 03/08/25 09:53 KW [id number] 03/08/25 10:07 KW Document 03/15/25 11:36 ML [id number] 03/15/25 11:44 ML 03/08/25 03/15/25 09:53 11:36 Wound Center Nurse 1 #4 L POSTERIOR FOOT -Current Size (cm) - Length 0.1 0.1 -Current Size (cm) - Width 0.1 0.1 -Current Size (cm) - Depth 0 0.1 -Total Square Cm 0.01 0.01 -Date of Last Picture (Recall this 03/08/25 field) -Exudate Amt Small -Exudate Type Yellow/Green -Granulation Amt Small (1-33%) -Slough/Fibrin Yes -Necrosis Amt Small (1-33%) -Necrotic Tissue Type Adherent Slough -Texture (Violet-wound Skin Appearance) Assessed,Callus Assessed -Moisture (Violet-wound Skin Appearance) Assessed,Dry/ Assessed Scaly -Color (Violet-wound Skin Appearance) Assessed Assessed -Temperature (Violet-wound Skin No Abnormality No Abnormality Appearance) (Pt Warm) (Pt Warm) -Tenderness on Palpation (Violet-wound No Yes Skin Appearance) -Ulcer Cleansing Soap and Water Soap and Water -Foul Odor after Cleansing No No -Anesthetic Used 5% Lidocaine Gel #3 LT HEEL -Current Size (cm) - Length 0.1 0.1 -Current Size (cm) - Width 0.1 0.1 -Current Size (cm) - Depth 0 0.1 -Total Square Cm 0.01 0.01 -Exudate Amt None Present None Present -Granulation Amt None Present (0 %) -Slough/Fibrin No -Necrosis Amt None Present (0 %) -Texture (Violet-wound Skin Appearance) Assessed,Callus Assessed -Moisture (Violet-wound Skin Appearance) Assessed,Dry/ Assessed Scaly -Color (Violet-wound Skin Appearance) Assessed Assessed -Temperature (Violet-wound Skin No Abnormality No Abnormality Appearance) (Pt Warm) (Pt Warm) -Tenderness on Palpation (Violet-wound No Yes Skin Appearance) -Ulcer Cleansing Soap and Water Soap and Water -Foul Odor after Cleansing No No -Anesthetic Used 5% Lidocaine Gel #2 RT HEEL -Current Size (cm) - Length 0.2 0.1 -Current Size (cm) - Width 1.5 0.1 -Current Size (cm) - Depth 0.1 0.1 -Total Square Cm 0.30 0.01 -Date of Last Picture (Recall this 03/08/25 field) -Exudate Amt Small None Present -Exudate Type Serosanguineous -Wound Margin Distinct, Outline Attached -Granulation Amt Large (67-100%) None Present (0 %) -Granulation Quality [place] -Necrosis Amt None Present (0 %) -Texture (Violet-wound Skin Appearance) Assessed,Callus Assessed -Moisture (Violet-wound Skin Appearance) Assessed,Dry/ Assessed Scaly -Color (Violet-wound Skin Appearance) Assessed Assessed -Temperature (Violet-wound Skin No Abnormality No Abnormality Appearance) (Pt Warm) (Pt Warm) -Tenderness on Palpation (Violet-wound No Yes Skin Appearance) -Ulcer Cleansing Soap and Water Soap and Water -Foul Odor after Cleansing No No -Anesthetic Used 5% Lidocaine 5% Lidocaine Gel Gel #1 RT KAUR CLUSTER -Current Size (cm) - Length 0.5 0.3 -Current Size (cm) - Width 9 0.1 -Current Size (cm) - Depth 0.1 0.1 -Total Square Cm 4.5 0.03 -Date of Last Picture (Recall this 03/08/25 field) -Exudate Amt Medium Small -Exudate Type Serosanguineous Yellow/Green -Wound Margin Distinct, Distinct, Outline Outline Attached Attached -Granulation Amt Medium (34-66%) Small (1-33%) -Granulation Quality Red -Slough/Fibrin Yes -Necrosis Amt Medium (34-66%) Small (1-33%) -Necrotic Tissue Type Adherent Slough Adherent Slough -Texture (Violet-wound Skin Appearance) Assessed Assessed -Moisture (Violet-wound Skin Appearance) Assessed Assessed -Color (Violet-wound Skin Appearance) Assessed, Assessed Hemosiderin Staining -Temperature (Violet-wound Skin No Abnormality No Abnormality Appearance) (Pt Warm) (Pt Warm) -Tenderness on Palpation (Violet-wound No Yes Skin Appearance) -Ulcer Cleansing Soap and Water Soap and Water -Foul Odor after Cleansing No No -Anesthetic Used 5% Lidocaine 5% Lidocaine Gel Gel Right Calf (cm) 28.5 21 Right Ankle (cm) 19.5 19 Left Calf (cm) 28.5 25 Left Ankle (cm) 18.5 20 WC - Nurse 2 - General Ulcer CM Notes Start: 03/08/25 09:42 Freq: Status: Active Protocol: Activity Type Activity Date Activity User E-sign Co-sign Detail Recorded Client Recorded Date Recorded By Document 03/08/25 10:43 [id number] 03/08/25 10:54 Document 03/15/25 12:00 [id number] 03/15/25 12:09 03/08/25 03/15/25 10:43 12:00 Wound Center Nurse 2 #4 L POSTERIOR FOOT -Time 10:53 12:01 -Correct Patient Yes Yes -Correct Side, Site, Position Yes Yes -Correct Procedure Yes Yes -Procedure Performed Yes Yes -Type of Procedure Debridement Debridement -Clinical Debridement Subcutaneous Epidermis / Dermis -Tissue Removed Subcutaneous Epidermis -Post Debridement (cm) - Length 0.2 0.5 -Post Debridement (cm) - Width 1.2 0.1 -Post Debridement (cm) - Depth 0.1 0.1 -Total Square (Post) (cm) 0.24 0.05 -Area of Debridement (cm) - Length 0.2 0.5 -Area of Debridement (cm) - Width 1.2 0.1 -Total Square (Area) (cm) 0.24 0.05 -Tunneling No No -Undermining/Tunneling No No -Circular Undermining No No -Wound/Ulcer Outcome Not Healed Not Healed -Ulcer Cleansing Rinsed/ Rinsed/ Irrigated with Irrigated with Saline Saline -Foul Odor after Cleansing No No -Bioengineered Tissue No No -Bleeding Controlled with Pressure Pressure -Treatment Response Procedure Procedure Tolerated Well Tolerated Well -Offloading No No -Debridement - Open, 1st 20sq cm Yes -Debridement - Subq, 1st 20sq cm Yes #3 LT HEEL -Time 10:53 12:02 -Correct Patient Yes Yes -Correct Side, Site, Position Yes Yes -Correct Procedure Yes Yes -Procedure Performed Yes Yes -Type of Procedure Debridement Debridement -Clinical Debridement Subcutaneous Epidermis / Dermis -Tissue Removed Subcutaneous Epidermis, Dermis -Post Debridement (cm) - Length 0.4 0.1 -Post Debridement (cm) - Width 0.2 0.3 -Post Debridement (cm) - Depth 0.1 0.1 -Total Square (Post) (cm) 0.08 0.03 -Area of Debridement (cm) - Length 0.4 0.1 -Area of Debridement (cm) - Width 0.2 0.3 -Total Square (Area) (cm) 0.08 0.03 -Tunneling No No -Undermining/Tunneling No No -Circular Undermining No No -Wound/Ulcer Outcome Not Healed Not Healed -Ulcer Cleansing Rinsed/ Rinsed/ Irrigated with Irrigated with Saline Saline -Foul Odor after Cleansing No No -Bioengineered Tissue No No -Bleeding Controlled with Pressure Pressure -Treatment Response Procedure Procedure Tolerated Well Tolerated Well -Offloading No -Debridement - Open, 1st 20sq cm No -Debridement - Subq, 1st 20sq cm No #2 RT HEEL -Time 10:47 12:02 -Correct Patient Yes Yes -Correct Side, Site, Position Yes Yes -Correct Procedure Yes Yes -Procedure Performed Yes Yes -Type of Procedure Debridement Debridement -Clinical Debridement Subcutaneous Subcutaneous -Tissue Removed Subcutaneous Subcutaneous -Post Debridement (cm) - Length 1.5 1.8 -Post Debridement (cm) - Width 0.3 0.3 -Post Debridement (cm) - Depth 0.1 0.1 -Total Square (Post) (cm) 0.45 0.54 -Area of Debridement (cm) - Length 1.5 1.8 -Area of Debridement (cm) - Width 0.3 0.3 -Total Square (Area) (cm) 0.45 0.54 -Tunneling No No -Undermining/Tunneling No No -Circular Undermining No No -Wound/Ulcer Outcome Not Healed Not Healed -Ulcer Cleansing Rinsed/ Rinsed/ Irrigated with Irrigated with Saline Saline -Foul Odor after Cleansing No No -Bioengineered Tissue No No -Bleeding Controlled with Pressure Pressure -Treatment Response Procedure Procedure Tolerated Well Tolerated Well -Offloading No No -Debridement - Subq, 1st 20sq cm No No #1 RT KAUR CLUSTER -Time 10:45 12:03 -Correct Patient Yes Yes -Correct Side, Site, Position Yes Yes -Correct Procedure Yes Yes -Procedure Performed Yes Yes -Type of Procedure Debridement Debridement -Clinical Debridement Subcutaneous Subcutaneous -Tissue Removed Subcutaneous Subcutaneous -Post Debridement (cm) - Length 0.4 0.3 -Post Debridement (cm) - Width 0.5 0.4 -Post Debridement (cm) - Depth 0.1 0.1 -Total Square (Post) (cm) 0.20 0.12 -Area of Debridement (cm) - Length 0.4 0.3 -Area of Debridement (cm) - Width 0.5 0.4 -Total Square (Area) (cm) 0.20 0.12 -Tunneling No No -Undermining/Tunneling No No -Circular Undermining No No -Wound/Ulcer Outcome Not Healed Not Healed -Ulcer Cleansing Rinsed/ Rinsed/ Irrigated with Irrigated with Saline Saline -Foul Odor after Cleansing No No -Bioengineered Tissue No No -Bleeding Controlled with Pressure Pressure -Treatment Response Procedure Procedure Tolerated Well Tolerated Well -Offloading No No -Debridement - Subq, 1st 20sq cm No No Pain Scale: 0-10 Numeric Is Patient Pain Free? Yes Yes - Nurse 3 - General Ulcer D/C NN Start: 03/08/25 09:42 Freq: Status: Active Protocol: Activity Type Activity Date Activity User E-sign Co-sign Detail Recorded Client Recorded Date Recorded By Document 03/08/25 11:17 MT [id number] 03/08/25 11:20 MT Document 03/15/25 12:32 RB [id number] 03/15/25 12:34 RB 03/08/25 03/15/25 11:17 12:32 Wound Care Center Nurse 3 #4 L POSTERIOR FOOT -Foul Odor after Cleansing No -Negative Pressure Wound Therapy N/A -Primary Dressing Applied Promogran, Silicone Border Foam 4x4 -Other Dressing ADAPTIC -Primary Dressing Covered/Secured with Dry Gauze -Promogran 1 -Silicone Border Foam 4x4 1 #3 LT HEEL -Foul Odor after Cleansing No -Negative Pressure Wound Therapy N/A -Primary Dressing Applied Silicone Border Promogran Foam 4x4 -Primary Dressing Covered/Secured with Dry Gauze,Dry Gauze & Roll Gauze,Secured with Tape -Promogran 1 -Silicone Border Foam 4x4 1 #2 RT HEEL -Primary Dressing Applied Silicone Border Foam 4x4 -Other Dressing PROMOGRAN -Primary Dressing Covered/Secured with Dry Gauze,Dry Gauze & Roll Gauze,Secured with Tape -Silicone Border Foam 4x4 1 #1 RT KAUR CLUSTER -Primary Dressing Applied Silicone Border Foam 4x4 -Other Dressing PROMOGRAN -Silicone Border Foam 4x4 1 -Wound Comment(s) PT REFUSED TUBIGRIP BILAT Treatment Response Procedure Tolerated Well Pain Scale: 0-10 Numeric Is Patient Pain Free? Yes Yes WC - Visit Discharge Discharge Condition Stable Ambulatory Status Ambulatory Transportation Private Auto Medication Reconcilliation completed & No provided to patient/care provider Clinical Summary of Care Provided Yes Additional Wound Wound debrided: Right foot Type of Debridement: Excisional debridement Anesthesia Used: 5% Lidocaine Gel Depth: Down to and including healthy tissue and in the subcutaneous layer Percentage of wound debrided: 100 Instrument Used: 3mm curette Tissue Removed: Slough and devitalized tissue Severity: Fat Layer Exposed Amount of bleeding with debridement: Mild Bleeding Controlled with: Pressure Patient tolerated procedure: Patient tolerated procedure well Additional Wound Wound debrided: Left heel Type of Debridement: Excisional debridement Anesthesia Used: 5% Lidocaine Gel Depth: Down to and including healthy tissue and in the subcutaneous layer Percentage of wound debrided: 100 Instrument Used: 3mm curette Tissue Removed: Devitalized tissue Severity: Limited To Skin Breakdown Amount of bleeding with debridement: Mild Bleeding Controlled with: Pressure Additional Wound Wound debrided: Left posterior foot Type of Debridement: Selective debridement Anesthesia Used: 5% Lidocaine Gel Depth: Down to and including healthy tissue Percentage of wound debrided: 100 Instrument Used: 3mm curette Tissue Removed: Devitalized tissue Severity: Limited To Skin Breakdown Amount of bleeding with debridement: Mild Bleeding Controlled with: Pressure Patient tolerated procedure: Patient tolerated procedure well Assessment/Plan Assessment/Plan (1) Ulcer of right lower extremity with fat layer exposed: CODE(S): L97.912 - Non-pressure chronic ulcer of unspecified part of rightlower leg with fat layer exposed (2) Ulcer of right foot with fat layer exposed: CODE(S): L97.512 - Non-pressure chronic ulcer of other part of right foot with fat layer exposed (3) Ulcer of left foot with fat layer exposed: CODE(S): L97.522 - Non-pressure chronic ulcer of other part of left foot with fat layer exposed (4) PAD (peripheral artery disease): CODE(S): I73.9 - Peripheral vascular disease, unspecified (5) PAF (paroxysmal atrial fibrillation): CODE(S): I48.0 - Paroxysmal atrial fibrillation (6) Type 2 diabetes mellitus: CODE(S): E11.9 - Type 2 diabetes mellitus without complications (7) Chronic kidney disease, stage 3b: CODE(S): N18.32 - Chronic kidney disease, stage 3b PLAN: Plan Debridement done as documented above, procedure was well-tolerated. Right kaur and left foot with some improvement however left heel with mild worsening since her last visit. As above, they had difficulty keeping dressing in place to the left heel. Overall, fissuring and dryness has improved to the foot area. Continue moistened Promogran to all areas of ulceration, cover bilateral foot with Adaptic and then foam dressing. May wrap right foot with gauze/Coban wrap to help dressing stay in place. Cover kaur with foam dressing. Continue adequate moisturizing. Patient and voiced understanding. Single-layer Tubigrip for edema management, mild compression due to peripheral arterial disease. Continue diuretic management per PCP. Leg elevation discussed and exercise as tolerated. Optimal diabetes control recommended. Optimal dietary intake also discussed, states that she takes boost to help supplement her diet which has reduced somewhat. Recommend increase protein intake, vitaminC, D and zinc. Their questions were answered, they were advised to let us knowif he had any further questions or concerns. Follow-up in a week or sooner if needed. This note was generated with [employer] software. It may contain incorrectwords, spelling, and punctuation that were not noted in checking the note beforesigning. 03/15/25 6557 <Electronically signed by Ebony Cerrato MD> Cosigner Signature (if applicable): CC: ~ Signed [facility] Work Phone: 1(170) 590-462509-04-2025 Progress note Author Ebony Cerrato [facility] Note Date/Time March 08, 2025 12:44pm [facility] [address] [place] [address] Progress Note - Wound Care 03/08/25 1234 MR#: [id number] Acct: [id number] Name: BERTA SANCHES Rep #:[id number] 08 : 1945 79 From: Ebony collins MD PCP: Dr. Vincent Flores MD Status:REG R CR Location: History of Present Illness Date of Service: 03/08/25 Chief Complaint: Bilateral lower extremity ulcers History of Wound: Ms. Sanches is a 70-year-old who was referred to the wound center by her PCP due to nonhealing bilateral lower extremity ulceration. Said to have started months ago during a prolonged hospitalization in [place]. Bilateral foot/heel and right kaur. She has been applying Neosporin without anysignificant improvement. She reports a history of vascular surgery in [place]. 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 No significant tobacco use, smoked for about 6 months quit over 50 years ago. She reports a history of "borderline diabetes". Currently not on medication. Appetite is fair, concern for recent significant weight loss.. Otherwise, she states that she feels well. Progress of Wound: No significant concerns since her last visit. Diuretics were on hold and so increased lower extremity swelling. Medication being managed by her primary care physician. Overall, stable ulcers. Objective Data Objective Data Vital Signs: Vital Signs Temp Pulse Resp BP O2 Del Method 96.8 F L 75 18 145/40 H Room Air 03/08/25 09:53 03/08/25 09:53 03/08/25 09:53 03/08/25 09:53 03/08/25 09:53 Oxygen Delivery Method Room Air Charges/Coding Procedures Integumentary 111xxx-113xx: 87016 Etelvina subq tissue 20 sq cm/< Physical Exam Const alert, oriented x3 and no apparent distress General Appearance: cooperative, well kempt and well developed HEENT normocephalic and head/scalp atraumatic Eyes EOMs intact bilaterally Neck full ROM General: normal visual inspection Resp normal respiratory effort Effort and Inspection: able to speak in complete sentences Skin Wounds: wounds noted size Size: See clinical note, bed with slough, margins wellapproximated, no odor, open and surrounding erythema Neuro oriented x3, CN's II-XII intact bilaterally, moves all extremities and no focal motor deficits Psych mental status grossly normal, thought process normal, cooperative and affect normal Debridement Note Debridement Note Wound debrided: Right kaur Type of Debridement: Excisional debridement Anesthesia Used: 5% Lidocaine Gel Depth: Down to and including healthy tissue and in the subcutaneous layer Percentage of wound debrided: 100 Instrument Used: 3mm curette Tissue Removed: Slough and devitalized tissue Severity: Fat Layer Exposed Amount of bleeding with debridement: Mild Bleeding Controlled with: Pressure Patient tolerated procedure: Patient tolerated procedure well Post-Debridement Measurements and Additional Note: Post-Debridement Measurements/Treatment WC - Nurse 1 - General Ulcer Assessment Start: 03/08/25 09:42 Freq: Status: Active Protocol: TOMASZ Activity Type Activity Date Activity User E-sign Co-sign Detail Recorded Client Recorded Date Recorded By Document 03/08/25 09:53 [id number] 03/08/25 10:07 03/08/25 09:53 WC - Today's Visit Information Type of service Follow-up Visit (Physician/SCRAP CHARGER ) Arrival Mode Ambulatory Accompanied by Patient Identification Verified (Name & Yes ) Vital Signs Temperature (97.8 F-99.1 F) 96.8 F L Temperature Source Temporal Pulse Rate (60-100) 75 Pulse Location Monitor Respiratory Rate (12-18) 18 Respiratory rate source Observation Oxygen Delivery Method Room Air Blood Pressure (90/60-120/80) 145/40 H Blood Pressure Mean (mm Hg) 75 Source Monitor Position Sitting Blood Pressure Location Right Arm History Since Last Visit- (Skip if this is Patient's initial visit) Have you changed medications since your No last visit? Any new allergies or adverse reactions No Had a fall/change in ADL's that may No increase risk of falls Signs or symptoms of abuse and/or No neglect since last visit Have you been in the hospital since your No last visit? Has dressing in place as prescribed Yes Has compression in place as prescribed Yes Has offloadiing in place as prescribed N/A Experienced any changes in pain level or No management Left Footwear Regular Shoe Right Footwear Regular Shoe Pain Scale: 0-10 Numeric Is Patient Pain Free? Yes WC - Nurse 1 - General Ulcer Measurement Start: 03/08/25 09:42 Freq: Status: Active Protocol: Activity Type Activity Date Activity User E-sign Co-sign Detail Recorded Client Recorded Date Recorded By Document 03/08/25 09:53 KW [id number] 03/08/25 10:07 KW 03/08/25 09:53 Wound Center Nurse 1 #4 L POSTERIOR FOOT -Current Size (cm) - Length 0.1 -Current Size (cm) - Width 0.1 -Current Size (cm) - Depth 0 -Total Square Cm 0.01 -Date of Last Picture (Recall this 03/08/25 field) -Texture (Violet-wound Skin Appearance) Assessed,Callus -Moisture (Violet-wound Skin Appearance) Assessed,Dry/ Scaly -Color (Violet-wound Skin Appearance) Assessed -Temperature (Violet-wound Skin No Abnormality Appearance) (Pt Warm) -Tenderness on Palpation (Violet-wound No Skin Appearance) -Ulcer Cleansing Soap and Water -Foul Odor after Cleansing No #3 LT HEEL -Current Size (cm) - Length 0.1 -Current Size (cm) - Width 0.1 -Current Size (cm) - Depth 0 -Total Square Cm 0.01 -Exudate Amt None Present -Texture (Violet-wound Skin Appearance) Assessed,Callus -Moisture (Violet-wound Skin Appearance) Assessed,Dry/ Scaly -Color (Violet-wound Skin Appearance) Assessed -Temperature (Violet-wound Skin No Abnormality Appearance) (Pt Warm) -Tenderness on Palpation (Violet-wound No Skin Appearance) -Ulcer Cleansing Soap and Water -Foul Odor after Cleansing No #2 RT HEEL -Current Size (cm) - Length 0.2 -Current Size (cm) - Width 1.5 -Current Size (cm) - Depth 0.1 -Total Square Cm 0.30 -Date of Last Picture (Recall this 03/08/25 field) -Exudate Amt Small -Exudate Type Serosanguineous -Wound Margin Distinct, Outline Attached -Granulation Amt Large (67-100%) -Granulation Quality [place] -Texture (Violet-wound Skin Appearance) Assessed,Callus -Moisture (Violet-wound Skin Appearance) Assessed,Dry/ Scaly -Color (Violet-wound Skin Appearance) Assessed -Temperature (Violet-wound Skin No Abnormality Appearance) (Pt Warm) -Tenderness on Palpation (Violet-wound No Skin Appearance) -Ulcer Cleansing Soap and Water -Foul Odor after Cleansing No -Anesthetic Used 5% Lidocaine Gel #1 RT KAUR CLUSTER -Current Size (cm) - Length 0.5 -Current Size (cm) - Width 9 -Current Size (cm) - Depth 0.1 -Total Square Cm 4.5 -Date of Last Picture (Recall this 03/08/25 field) -Exudate Amt Medium -Exudate Type Serosanguineous -Wound Margin Distinct, Outline Attached -Granulation Amt Medium (34-66%) -Granulation Quality Red -Necrosis Amt Medium (34-66%) -Necrotic Tissue Type Adherent Slough -Texture (Violet-wound Skin Appearance) Assessed -Moisture (Violet-wound Skin Appearance) Assessed -Color (Violet-wound Skin Appearance) Assessed, Hemosiderin Staining -Temperature (Violet-wound Skin No Abnormality Appearance) (Pt Warm) -Tenderness on Palpation (Violet-wound No Skin Appearance) -Ulcer Cleansing Soap and Water -Foul Odor after Cleansing No -Anesthetic Used 5% Lidocaine Gel Right Calf (cm) 28.5 Right Ankle (cm) 19.5 Left Calf (cm) 28.5 Left Ankle (cm) 18.5 WC - Nurse 2 - General Ulcer CM Notes Start: 03/08/25 09:42 Freq: Status: Active Protocol: Activity Type Activity Date Activity User E-sign Co-sign Detail Recorded Client Recorded Date Recorded By Document 03/08/25 10:43 [id number] 03/08/25 10:54 03/08/25 10:43 Wound Center Nurse 2 #4 L POSTERIOR FOOT -Time 10:53 -Correct Patient Yes -Correct Side, Site, Position Yes -Correct Procedure Yes -Procedure Performed Yes -Type of Procedure Debridement -Clinical Debridement Subcutaneous -Tissue Removed Subcutaneous -Post Debridement (cm) - Length 0.2 -Post Debridement (cm) - Width 1.2 -Post Debridement (cm) - Depth 0.1 -Total Square (Post) (cm) 0.24 -Area of Debridement (cm) - Length 0.2 -Area of Debridement (cm) - Width 1.2 -Total Square (Area) (cm) 0.24 -Tunneling No -Undermining/Tunneling No -Circular Undermining No -Wound/Ulcer Outcome Not Healed -Ulcer Cleansing Rinsed/ Irrigated with Saline -Foul Odor after Cleansing No -Bioengineered Tissue No -Bleeding Controlled with Pressure -Treatment Response Procedure Tolerated Well -Offloading No -Debridement - Subq, 1st 20sq cm Yes #3 LT HEEL -Time 10:53 -Correct Patient Yes -Correct Side, Site, Position Yes -Correct Procedure Yes -Procedure Performed Yes -Type of Procedure Debridement -Clinical Debridement Subcutaneous -Tissue Removed Subcutaneous -Post Debridement (cm) - Length 0.4 -Post Debridement (cm) - Width 0.2 -Post Debridement (cm) - Depth 0.1 -Total Square (Post) (cm) 0.08 -Area of Debridement (cm) - Length 0.4 -Area of Debridement (cm) - Width 0.2 -Total Square (Area) (cm) 0.08 -Tunneling No -Undermining/Tunneling No -Circular Undermining No -Wound/Ulcer Outcome Not Healed -Ulcer Cleansing Rinsed/ Irrigated with Saline -Foul Odor after Cleansing No -Bioengineered Tissue No -Bleeding Controlled with Pressure -Treatment Response Procedure Tolerated Well -Offloading No -Debridement - Subq, 1st 20sq cm No #2 RT HEEL -Time 10:47 -Correct Patient Yes -Correct Side, Site, Position Yes -Correct Procedure Yes -Procedure Performed Yes -Type of Procedure Debridement -Clinical Debridement Subcutaneous -Tissue Removed Subcutaneous -Post Debridement (cm) - Length 1.5 -Post Debridement (cm) - Width 0.3 -Post Debridement (cm) - Depth 0.1 -Total Square (Post) (cm) 0.45 -Area of Debridement (cm) - Length 1.5 -Area of Debridement (cm) - Width 0.3 -Total Square (Area) (cm) 0.45 -Tunneling No -Undermining/Tunneling No -Circular Undermining No -Wound/Ulcer Outcome Not Healed -Ulcer Cleansing Rinsed/ Irrigated with Saline -Foul Odor after Cleansing No -Bioengineered Tissue No -Bleeding Controlled with Pressure -Treatment Response Procedure Tolerated Well -Offloading No -Debridement - Subq, 1st 20sq cm No #1 RT KAUR CLUSTER -Time 10:45 -Correct Patient Yes -Correct Side, Site, Position Yes -Correct Procedure Yes -Procedure Performed Yes -Type of Procedure Debridement -Clinical Debridement Subcutaneous -Tissue Removed Subcutaneous -Post Debridement (cm) - Length 0.4 -Post Debridement (cm) - Width 0.5 -Post Debridement (cm) - Depth 0.1 -Total Square (Post) (cm) 0.20 -Area of Debridement (cm) - Length 0.4 -Area of Debridement (cm) - Width 0.5 -Total Square (Area) (cm) 0.20 -Tunneling No -Undermining/Tunneling No -Circular Undermining No -Wound/Ulcer Outcome Not Healed -Ulcer Cleansing Rinsed/ Irrigated with Saline -Foul Odor after Cleansing No -Bioengineered Tissue No -Bleeding Controlled with Pressure -Treatment Response Procedure Tolerated Well -Offloading No -Debridement - Subq, 1st 20sq cm No Pain Scale: 0-10 Numeric Is Patient Pain Free? Yes - Nurse 3 - General Ulcer D/C NN Start: 03/08/25 09:42 Freq: Status: Active Protocol: Activity Type Activity Date Activity User E-sign Co-sign Detail Recorded Client Recorded Date Recorded By Document 03/08/25 11:17 ND [id number] 03/08/25 11:20 ND 03/08/25 11:17 Wound Care Center Nurse 3 #4 L POSTERIOR FOOT -Foul Odor after Cleansing No -Negative Pressure Wound Therapy N/A -Primary Dressing Applied Promogran, Silicone Border Foam 4x4 -Other Dressing ADAPTIC -Promogran 1 -Silicone Border Foam 4x4 1 #3 LT HEEL -Foul Odor after Cleansing No -Negative Pressure Wound Therapy N/A -Primary Dressing Applied Silicone Border Foam 4x4 -Silicone Border Foam 4x4 1 #2 RT HEEL -Primary Dressing Applied Silicone Border Foam 4x4 -Silicone Border Foam 4x4 1 Pain Scale: 0-10 Numeric Is Patient Pain Free? Yes Additional Wound Wound debrided: Right foot Type of Debridement: Excisional debridement Anesthesia Used: 5% Lidocaine Gel Depth: Down to and including healthy tissue and in the subcutaneous layer Percentage of wound debrided: 100 Instrument Used: 3mm curette Tissue Removed: Slough and devitalized tissue Severity: Fat Layer Exposed Amount of bleeding with debridement: Mild Bleeding Controlled with: Pressure Patient tolerated procedure: Patient tolerated procedure well Additional Wound Wound debrided: Left heel Type of Debridement: Excisional debridement Anesthesia Used: 4% Lidocaine Solution Depth: Down to and including healthy tissue Percentage of wound debrided: 100 Instrument Used: 3mm curette Tissue Removed: Devitalized tissue Severity: Limited To Skin Breakdown Amount of bleeding with debridement: None Patient tolerated procedure: Patient tolerated procedure well Additional Wound Wound debrided: Left posterior foot Type of Debridement: Excisional debridement Anesthesia Used: 5% Lidocaine Gel Depth: Down to and including healthy tissue Percentage of wound debrided: 100 Instrument Used: 3mm curette Tissue Removed: Devitalized tissue Amount of bleeding with debridement: Mild Bleeding Controlled with: Pressure Patient tolerated procedure: Patient tolerated procedure well Assessment/Plan Assessment/Plan (1) Ulcer of right lower extremity with fat layer exposed: CODE(S): L97.912 - Non-pressure chronic ulcer of unspecified part of rightlower leg with fat layer exposed (2) Ulcer of right foot with fat layer exposed: CODE(S): L97.512 - Non-pressure chronic ulcer of other part of right foot with fat layer exposed (3) Ulcer of left foot with fat layer exposed: CODE(S): L97.522 - Non-pressure chronic ulcer of other part of left foot with fat layer exposed (4) PAD (peripheral artery disease): CODE(S): I73.9 - Peripheral vascular disease, unspecified (5) PAF (paroxysmal atrial fibrillation): CODE(S): I48.0 - Paroxysmal atrial fibrillation (6) Type 2 diabetes mellitus: CODE(S): E11.9 - Type 2 diabetes mellitus without complications (7) Chronic kidney disease, stage 3b: CODE(S): N18.32 - Chronic kidney disease, stage 3b PLAN: Plan Debridement done as documented above, procedure was well-tolerated. Some improvement noted. No acute concerns reported otherwise. Continue moistened Promogran to all areas of ulceration, cover bilateral foot with Adaptic and thenfoam dressing. Cover kaur with foam dressing. Again, strongly advised that they moisturize both feet adequately prior to dressing application, patient and voiced understanding. Single-layer Tubigrip for edema management. Continue diuretic management per PCP. Leg elevation discussed and exercise as tolerated. Optimal diabetes control recommended. Optimal dietary intake also discussed, states that she takes boost to help supplement her diet whichhas reduced somewhat. Recommend increase protein intake, vitamin C, D and zinc. Their questions were answered, they were advised to let us know if he had any further questions or concerns. Follow-up in a week or sooner if needed. This note was generated with [employer] dictation software. It may contain incorrectwords, spelling, and punctuation that were not noted in checking the note beforesigning. 03/08/25 1244 <Electronically signed by Ebony Cerrato MD> Cosigner Signature (if applicable): CC: ~ Signed [facility] Work Phone: [phone]) 947-401408-28-2025 History and physical note Author Ebony Cerrato [facility] Note Date/Time March 01, 2025 9: 58pm [facility] [address] [place] [address] H&P Exam - Wound Care 03/01/25 1249 MR#: [id number] Acct: [id number] Name: BERTA SANCHES Rep #:[id number] : 1945 79 From: Ebony collins MD PCP: Dr. Vincent Flores MD Status:REG R CR Location: ADDENDUM by Dr. Ebony Cerrato MD on 03/01/25 at 2158 Visit Charges Office Visits / Consults: 41674 OV L3 Est 20min Procedures Integumentary 111xxx-113xx: 58884 Etelvina subq tissue 20 sq cm/< 03/01/25 2158<Electronically signed by Ebony Cerrato MD> Cosigner Signature (if applicable): cc: ~* Signed History of Present Illness Date of Service: 03/01/25 Chief Complaint: Bilateral lower extremity ulcers History of Wound: Ms. Sanches is a 70-year-old who was referred to the wound center by her PCP due to nonhealing bilateral lower extremity ulceration. Said to have started months ago during a prolonged hospitalization in [place]. Bilateral foot/heel and right kaur. She has been applying Neosporin without anysignificant improvement. She reports a history of vascular surgery in [place]. 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 No significant tobacco use, smoked for about 6 months quit over 50 years ago. She reports a history of "borderline diabetes". Currently not on medication. Appetite is fair, concern for recent significant weight loss.. Otherwise, she states that she feels well. [facility] Medical History (Updated 03/01/25 @ 21:[address] Ebony Cerrato MD) Type 2 diabetes mellitus Ulcer of left foot with fat layer exposed Ulcer of right foot with fat layer exposed Ulcer of right lower extremity with fat layer exposed Acute on chronic heart failure with preserved ejection fraction Hypokalemia Fatigue Vitamin D deficiency Rheumatoid arthritis Insomnia Mitral valve regurgitation Tachy-pavan syndrome Rheumatic fever GERD (gastroesophageal reflux disease) Chronic renal failure (CRF), stage 3b Cervical cancer Iron deficiency anemia Non-sustained ventricular tachycardia Pulmonary hypertension Rectal bleed Presence of Watchman left atrial appendage closure device Pacemaker Sinus node dysfunction Bradycardia History of cardioversion MONIQUE (acute kidney injury) Skin tear of left forearm without complication [...] Medications ?Medication ?Instructions ?Recorded ?Last Taken ?Type atorvastatin 40 mg tablet 40 mg PO DAILY daily 5 Unknown History clopidogrel 75 mg tablet 75 mg PO DAILY 01/07/25 Unkn own History bumetanide 2 mg tablet 2 mg PO BID #60 tabs 5 Unknown Rx levothyroxine 25 mcg tablet 25 mcg PO QDAY 02/05/25 Un known History metoprolol succinate 50 mg 50 mg PO BID 02/05/25 Unkno wn History tablet,extended release 24 hr vitamin B complex 1 tab PO QDAY 02/05/25 Unkno wn History ascorbic acid (vitamin C) 500 mg 500 mg PO QDAY Unknown History tablet aspirin 81 mg tablet,delayed 81 mg PO QDAY 02/14/25 Un known History release (Adult Aspirin Regimen) metolazone 5 mg tablet 5 mg PO QDAY PRN edema 02/14 Unknown History pantoprazole 40 mg tablet,delayed 40 mg PO QDAY stomac h 02/14/25 Unknown History release polysaccharide iron complex 150 mg 150 mg PO QDAY 02/02 09/26 Unknown History iron capsule (Ferrex) potassium chloride 10 mEq 10 meq PO QDAY 02/14/25 Unkn own History tablet,extended release(part/cryst) spironolactone 25 mg tablet 12.5 mg PO BID daily 02/14 Unknown History cephalexin 500 mg capsule 500 mg PO Q8 03/01/25 Unknow n History doxycycline hyclate 100 mg tablet 100 mg PO BID Unknown History fluconazole 150 mg tablet 150 mg PO Q3D 03/01/25 Unkno wn History furosemide 40 mg tablet 40 mg PO BID 03/01/25 Unknow n History levothyroxine 50 mcg tablet 50 mcg PO DAILY 03/01/25 U nknown History mirtazapine 7.5 mg tablet 7.5 mg PO QHS 03/01/25 Unkno wn History Allergy/AdvReac Type Severity Reaction Status Date / Time propofol AdvReac Mild Low blood Verified 03/01/25 09:07 pressure Family History Father Heart disease High cholesterol Myocardial infarction, Onset Age: 58 Mother Heart disease Surgical History Hx of abdominal surgery History of mastoidectomy History of cardiac radiofrequency ablation history skin cancer surgery history bilateral ear surgeries History of hysterectomy H/O aortic valve replacement Social History household members: spouse number of children: 1 current occupational status: retired 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 Smoking Status: Former smoker alcohol intake: current alcohol intake frequency: holidays/special occasions only Alcohol type: wine substance use type: does not use ROS Constitutional Constitutional: Denies frequent falls, headache(s), increased appetite or lethargy Eyes Eyes: Denies diplopia, discharge from eye(s), double vision, dry eyes, exophthalmos or eye pain ENT HEENT: Denies dysphagia, epistaxis, foreign body in nose, halitosis, headache(s)or hoarseness Cardiovascular Cardiovascular: Reports edema; Denies cold extremities, cyanosis, diaphoresis ordyspnea at rest Respiratory/Chest Respiratory/Chest: Denies difficulty clearing secretions, dry cough, excessive phlegm production, hemoptysis, hoarseness or inability to speak Gastrointestinal Gastrointestinal: Denies chewing difficulty, coffee ground emesis, dry heaves, excessive flatus or fecal incontinence Genitourinary Genitourinary: Denies abdominal discomfort, anuria, burning urination, contractions or flank pain Musculoskeletal Musculoskeletal: Denies atrophy, difficulty walking, muscle spasms, tingling or tremors Integumentary Integumentary: Denies change in pigmentation, erythema, furuncle, hirsutism or jaundice Neurologic Neurologic: Denies abnormal speech, behavior changes, burning sensations, confusion, convulsions or tremor(s) Psychiatric Psychiatric: Denies auditory hallucinations, behavioral changes, panic attacks, paranoia, tactile hallucinations or visual hallucinations Endocrine Endocrinology: Denies cold intolerance, deepening of the voice, excessive sweating, flushing, heat intolerance or increase in ring/shoe/hat size Hematologic/Lymphatic Hematologic/Lymphatic: Denies easy bleeding or lymphadenopathy Allergic/Immunologic Allergic/Immunologic: Denies lip swelling, rhinitis, throat swelling, tongue swelling, hives or wheezing Vital Signs Vital Signs Vital Signs: 03/01/25 09:12 Temperature 97.1 F L Temperature Source Temporal Pulse Rate 79 Respiratory Rate 18 Blood Pressure 125/65 H Blood Pressure Mean 85 Blood Pressure Source Monitor Blood Pressure Position Semi-Fowlers Blood Pressure Location Left Arm Oxygen Delivery Method Room Air Physical Exam Const alert, oriented x3 and no apparent distress General Appearance: cooperative, well kempt and well developed HEENT normocephalic and head/scalp atraumatic Eyes EOMs intact bilaterally Neck full ROM General: normal visual inspection Resp normal respiratory effort and normal air movement Effort and Inspection: able to speak in complete sentences Cardio regular rate, S1 normal heart sound and S2 normal heart sound GI soft to palpation and non-tender Skin Wounds: wounds noted size Size: See clinical note, bed with slough, margins wellapproximated, no odor, open and surrounding erythema Neuro oriented x3, CN's II-XII intact bilaterally, moves all extremities and no focal motor deficits Psych mental status grossly normal, thought process normal, cooperative and affect normal Debridement Note Debridement Note Wound debrided: Right kaur Type of Debridement: Excisional debridement Anesthesia Used: 5% Lidocaine Gel Depth: Down to and including healthy tissue and in the subcutaneous layer Percentage of wound debrided: 100 Instrument Used: 3mm curette Tissue Removed: Slough and devitalized tissue Severity: Fat Layer Exposed Amount of bleeding with debridement: Mild Bleeding Controlled with: Pressure Patient tolerated procedure: Patient tolerated procedure well Post-Debridement Measurements and Additional Note: Post-Debridement Measurements/Treatment YANY - Nurse 1 - General Ulcer Assessment Start: 03/01/25 09:07 Freq: Status: Active Protocol: TOMASZ Activity Type Activity Date Activity User E-sign Co-sign Detail Recorded Client Recorded Date Recorded By Document 03/01/25 09:12 MADYSON [id number] 03/01/25 09:35 KW 03/01/25 09:12 WC - Today's Visit Information Type of service Initial Visit Arrival Mode Ambulatory Accompanied by Patient Identification Verified (Name & Yes ) Vital Signs Temperature (97.8 F-99.1 F) 97.1 F L Temperature Source Temporal Pulse Rate (60-100) 79 Pulse Location Monitor Respiratory Rate (12-18) 18 Respiratory rate source Observation Oxygen Delivery Method Room Air Blood Pressure (90/60-120/80) 125/65 H Blood Pressure Mean 85 Source Monitor Position Semi-Fowlers Blood Pressure Location Left Arm History Since Last Visit- (Skip if this is Patient's initial visit) Have you changed medications since your No last visit? Any new allergies or adverse reactions No Had a fall/change in ADL's that may No increase risk of falls Signs or symptoms of abuse and/or No neglect since last visit Have you been in the hospital since your No last visit? Left Footwear Regular Shoe Right Footwear Regular Shoe Pain Scale: 0-10 Numeric Is Patient Pain Free? No bethel heels -Intensity 8 -Alleviating Factors/Interventions Medication, Inactivity/ Resting Communication Assessment Preferred language Portuguese Electronics Engineering Technician Required No Able to Read Yes Able to Write Yes Communication Tools None Caregiver Communication Skills No Impairment Impairment Right Hearing Abillity Normal Left Hearing Abillity Normal Visual Assistive Devices Glasses Teaching Assessment Preferences Verbal,Written, Demonstration Barriers to Learning None Readiness To Learn Excellent Willingness to Engage in Self Management High Activies Readiness to Engage in Self Management High Activities Anxiety Level Calm Cooperation Cooperative Perception Coherent Interest in Health Problem Asks Questions Education Importance Acknowledges Need Does Patient Smoke tobacco or other No substances Smoking Status Former smoker Is Patient Diabetic No Functional Assessment Recent Decline in Ability to Perform Denies Any Declines Culture/Scientologist/Rn Complex Care Cultural/Scientologist Needs that may affect No Treatment Plan Would you allow our hospital rectangular tank cooper to No meet you for the purpose of spiritual/ emotional support? Rn Complex Care to contact place of advent No YANY - Nurse 1 - General Ulcer Measurement Start: 03/01/25 09:07 Freq: Status: Active Protocol: Activity Type Activity Date Activity User E-sign Co-sign Detail Recorded Client Recorded Date Recorded By Document 03/01/25 09:12 KW [id number] 03/01/25 09:35 KW 03/01/25 09:12 Wound Center Nurse 1 #3 LT HEEL -Current Size (cm) - Length 0.1 -Current Size (cm) - Width 0.4 -Current Size (cm) - Depth 0.1 -Total Square Cm 0.04 -Date of Last Picture (Recall this 03/01/25 field) -Exudate Amt Small -Exudate Type Serosanguineous -Wound Margin Thickened -Granulation Amt Small (1-33%) -Granulation Quality [place] -Necrosis Amt Large (67-100%) -Necrotic Tissue Type Adherent Slough -Texture (Violet-wound Skin Appearance) Assessed,Callus -Moisture (Violet-wound Skin Appearance) Assessed,Dry/ Scaly -Color (Violet-wound Skin Appearance) Assessed -Temperature (Violet-wound Skin No Abnormality Appearance) (Pt Warm) -Tenderness on Palpation (Violet-wound No Skin Appearance) -Ulcer Cleansing Rinsed/ Irrigated with Saline -Foul Odor after Cleansing No -Anesthetic Used 5% Lidocaine Gel #2 RT HEEL -Current Size (cm) - Length 0.2 -Current Size (cm) - Width 1 -Current Size (cm) - Depth 0.2 -Total Square Cm 0.2 -Date of Last Picture (Recall this 03/01/25 field) -Exudate Amt Small -Exudate Type Serosanguineous -Wound Margin Thickened -Granulation Amt Small (1-33%) -Granulation Quality [place] -Necrosis Amt Large (67-100%) -Necrotic Tissue Type Adherent Slough -Texture (Violet-wound Skin Appearance) Assessed,Callus -Moisture (Violet-wound Skin Appearance) Assessed,Dry/ Scaly -Color (Violet-wound Skin Appearance) Assessed -Temperature (Violet-wound Skin No Abnormality Appearance) (Pt Warm) -Tenderness on Palpation (Violet-wound No Skin Appearance) -Ulcer Cleansing Rinsed/ Irrigated with Saline -Foul Odor after Cleansing No -Anesthetic Used 5% Lidocaine Gel #1 RT KAUR -Current Size (cm) - Length 0.5 -Current Size (cm) - Width 0.5 -Current Size (cm) - Depth 0.1 -Total Square Cm 0.25 -Date of Last Picture (Recall this 03/01/25 field) -Exudate Amt Medium -Exudate Type Serosanguineous -Wound Margin Distinct, Outline Attached -Granulation Amt Large (67-100%) -Granulation Quality [place],Red -Texture (Violet-wound Skin Appearance) Assessed -Moisture (Voilet-wound Skin Appearance) Assessed -Color (Violet-wound Skin Appearance) Assessed, Hemosiderin Staining -Temperature (Violet-wound Skin No Abnormality Appearance) (Pt Warm) -Tenderness on Palpation (Violet-wound No Skin Appearance) -Ulcer Cleansing Rinsed/ Irrigated with Saline -Foul Odor after Cleansing No -Anesthetic Used 5% Lidocaine Gel Right Calf (cm) 26.7 Right Ankle (cm) 17.5 Left Calf (cm) 27.5 Left Ankle (cm) 18.5 WC - Nurse 2 - General Ulcer CM Notes Start: 03/01/25 09:07 Freq: Status: Active Protocol: Activity Type Activity Date Activity User E-sign Co-sign Detail Recorded Client Recorded Date Recorded By Document 03/01/25 09:52 [id number] 03/01/25 10:09 03/01/25 09:52 Wound Center Nurse 2 #4 L POSTERIOR FOOT -Time 10:08 -Correct Patient Yes -Correct Side, Site, Position Yes -Correct Procedure Yes -Procedure Performed Yes -Type of Procedure Debridement -Clinical Debridement Subcutaneous -Tissue Removed Subcutaneous -Post Debridement (cm) - Length 0.9 -Post Debridement (cm) - Width 0.2 -Post Debridement (cm) - Depth 0.1 -Total Square (Post) (cm) 0.18 -Area of Debridement (cm) - Length 0.9 -Area of Debridement (cm) - Width 0.2 -Total Square (Area) (cm) 0.18 -Tunneling No -Undermining/Tunneling No -Circular Undermining No -Wound/Ulcer Outcome Not Healed -Ulcer Cleansing Rinsed/ Irrigated with Saline -Foul Odor after Cleansing No -Bioengineered Tissue No -Bleeding Controlled with Pressure -Treatment Response Procedure Tolerated Well -Offloading No -Debridement - Subq, 1st 20sq cm No #3 LT HEEL -Time 09:52 -Correct Patient Yes -Correct Side, Site, Position Yes -Correct Procedure Yes -Procedure Performed Yes -Type of Procedure Debridement -Clinical Debridement Subcutaneous -Tissue Removed Subcutaneous -Post Debridement (cm) - Length 0.2 -Post Debridement (cm) - Width 1.6 -Post Debridement (cm) - Depth 0.1 -Total Square (Post) (cm) 0.32 -Area of Debridement (cm) - Length 0.2 -Area of Debridement (cm) - Width 1.6 -Total Square (Area) (cm) 0.32 -Tunneling No -Undermining/Tunneling No -Circular Undermining No -Wound/Ulcer Outcome Not Healed -Ulcer Cleansing Rinsed/ Irrigated with Saline -Foul Odor after Cleansing No -Bioengineered Tissue No -Bleeding Controlled with Pressure -Treatment Response Procedure Tolerated Well -Offloading No -Debridement - Subq, 1st 20sq cm No #2 RT HEEL -Time 09:52 -Correct Patient Yes -Correct Side, Site, Position Yes -Correct Procedure Yes -Procedure Performed Yes -Type of Procedure Debridement -Clinical Debridement Subcutaneous -Tissue Removed Subcutaneous -Post Debridement (cm) - Length 2.2 -Post Debridement (cm) - Width 0.3 -Post Debridement (cm) - Depth 0.1 -Total Square (Post) (cm) 0.66 -Area of Debridement (cm) - Length 2.2 -Area of Debridement (cm) - Width 0.3 -Total Square (Area) (cm) 0.66 -Tunneling No -Undermining/Tunneling No -Circular Undermining No -Wound/Ulcer Outcome Not Healed -Ulcer Cleansing Rinsed/ Irrigated with Saline -Foul Odor after Cleansing No -Bioengineered Tissue No -Bleeding Controlled with Pressure -Treatment Response Procedure Tolerated Well -Offloading No -Debridement - Subq, 1st 20sq cm Yes #1 RT KAUR -Time 09:52 -Correct Patient Yes -Correct Side, Site, Position Yes -Correct Procedure Yes -Procedure Performed Yes -Type of Procedure Debridement -Clinical Debridement Subcutaneous -Tissue Removed Subcutaneous -Post Debridement (cm) - Length 0.7 -Post Debridement (cm) - Width 0.8 -Post Debridement (cm) - Depth 0.1 -Total Square (Post) (cm) 0.56 -Area of Debridement (cm) - Length 0.7 -Area of Debridement (cm) - Width 0.8 -Total Square (Area) (cm) 0.56 -Tunneling No -Undermining/Tunneling No -Circular Undermining No -Wound/Ulcer Outcome Not Healed -Ulcer Cleansing Rinsed/ Irrigated with Saline -Foul Odor after Cleansing No -Bioengineered Tissue No -Bleeding Controlled with Pressure -Treatment Response Procedure Tolerated Well -Offloading No -Debridement - Subq, 1st 20sq cm Yes Pain Scale: 0-10 Numeric Is Patient Pain Free? Yes - Nurse 3 - General Ulcer D/C NN Start: 03/01/25 09:07 Freq: Status: Active Protocol: Activity Type Activity Date Activity User E-sign Co-sign Detail Recorded Client Recorded Date Recorded By Document 03/01/25 10:32 ND [id number] 03/01/25 10:36 MT 03/01/25 10:32 Wound Care Center Nurse 3 #4 L POSTERIOR FOOT -Foul Odor after Cleansing No -Negative Pressure Wound Therapy N/A -Primary Dressing Applied Promogran, Silicone Border Foam 4x4 -Other Dressing ADAPTIC -Promogran 1 -Silicone Border Foam 4x4 3 #2 RT HEEL -Foul Odor after Cleansing No -Negative Pressure Wound Therapy N/A -Primary Dressing Applied Promogran, Silicone Border Foam 4x4 -Promogran 1 -Silicone Border Foam 4x4 3 Pain Scale: 0-10 Numeric Is Patient Pain Free? Yes WC - Visit Discharge Discharge Condition Stable Ambulatory Status Ambulatory Transportation Private Auto Medication Reconcilliation completed & No provided to patient/care provider Clinical Summary of Care Provided Yes Additional Wound Wound debrided: Right Heel/foot Type of Debridement: Excisional debridement Anesthesia Used: 5% Lidocaine Gel Depth: Down to and including healthy tissue and in the subcutaneous layer Percentage of wound debrided: 100 Instrument Used: 5mm curette Tissue Removed: Slough and devitalized tissue Severity: Fat Layer Exposed Amount of bleeding with debridement: Mild Bleeding Controlled with: Pressure Patient tolerated procedure: Patient tolerated procedure well Additional Wound Wound debrided: Left Heel Anesthesia Used: 5% Lidocaine Gel Depth: Down to and including healthy tissue and in the subcutaneous layer Percentage of wound debrided: 100 Instrument Used: 5mm curette Tissue Removed: Slough and devitalized tissue Severity: Fat Layer Exposed Amount of bleeding with debridement: Mild Bleeding Controlled with: Pressure Patient tolerated procedure: Patient tolerated procedure well Additional Wound Wound debrided: Left Posterior Foot Type of Debridement: Excisional debridement Anesthesia Used: 5% Lidocaine Gel Depth: Down to and including healthy tissue and in the subcutaneous layer Percentage of wound debrided: 100 Instrument Used: 5mm curette Tissue Removed: Slough and devitalized tissue Severity: Fat Layer Exposed Amount of bleeding with debridement: Mild Bleeding Controlled with: Pressure Patient tolerated procedure: Patient tolerated procedure well Assessment/Plan Assessment/Plan (1) Ulcer of right lower extremity with fat layer exposed: CODE(S): L97.912 - Non-pressure chronic ulcer of unspecified part of rightlower leg with fat layer exposed (2) Ulcer of right foot with fat layer exposed: CODE(S): L97.512 - Non-pressure chronic ulcer of other part of right foot with fat layer exposed (3) Ulcer of left foot with fat layer exposed: CODE(S): L97.522 - Non-pressure chronic ulcer of other part of left foot with fat layer exposed (4) PAD (peripheral artery disease): CODE(S): I73.9 - Peripheral vascular disease, unspecified (5) PAF (paroxysmal atrial fibrillation): CODE(S): I48.0 - Paroxysmal atrial fibrillation (6) Type 2 diabetes mellitus: CODE(S): E11.9 - Type 2 diabetes mellitus without complications (7) Chronic kidney disease, stage 3b: CODE(S): N18.32 - Chronic kidney disease, stage 3b PLAN: Plan Debridement done as documented above, procedure was well-tolerated. Bilateral lower extremity ulcerations. Right foot appears to be due to dry skin/fissuringmore so than pressure. History of peripheral arterial disease as well likely complicating healing. History of significant lower extremity edema which has improved following diuresis but still some degree of edema. Very complicated/complex past medical history. No clinical concern for infection on examination, no cultures done. For now, moistened Promogran to all areas of ulceration, cover bilateral foot with Adaptic and then foam dressing. Cover kaur with foam dressing. Strongly advised that they moisturize both feet adequately prior to dressing application, patient and voiced understanding. She reports a history of borderline diabetes however, records reviewed and her last A1c was at 7. Currently not on any medication, continue follow-up with primary care physician. Optimal diabetes control recommended. Optimal dietary intake also discussed, states that she takes boost to help supplement her diet which has reduced somewhat. Recommend increase proteinintake, vitamin C, D and zinc. Light compression with single-layer Tubigrip's. Leg elevation discussed and exercise as tolerated. Their questions were answered, they were advised to let us know if he had any further questions or concerns. Follow-up in a week or sooner if needed. This note was generated with [employer] dictation software. It may contain incorrectwords, spelling, and punctuation that were not noted in checking the note beforesigning. 03/01/252156 <Electronically signed by Ebony Cerrato MD> Cosigner Signature (if applicable): CC: ~ Signed [facility] Work Phone: 1(613) 963-321308-15-2025 Radiology Diagnostic study note [facility] Imaging Services [address] [place] [address] Chest PA and Lateral MR#: [id number] Acct: [id number] Name: BERTA SANCHES Rep #: [id number] : 1945 F 79 From: Tevin Chaves MD PCP: Dr. Vincent Flores MD Status: REG E R Study:Chest PA and Lateral Date of Exam: 02/16/25 Exam# [id number] Ordering Dr: Glenna Pang MD PROCEDURE: CHEST PA AND LATERAL 02/16/2025 REASON FOR EXAM: CHEST PAIN TECHNIQUE: CHEST PA AND LATERAL COMPARISON: Prior study dated February 13, 2021. FINDINGS: Hardware: EKG electrodes are seen. A left-sided dual-chamber pacemaker is seen. Heart: Moderate cardiomegaly. Mediastinum: Atherosclerotic calcification of the aortic arch. Lungs: Enlargement of the central pulmonary arteries suggestive of pulmonary hypertension. Mild degree of vascular congestion. Bones: Degenerative changes are identified within the thoracic spine. RAD/Chest PA and Lateral IMPRESSION: Cardiomegaly and vascular congestion. Prominence of the central pulmonary arteries suggestive of pulmonary hypertension. Reading Location: [facility] CC: Dr. Magdy Pang MD; Dr. Vincent Flores MD ~ Holistic Nutritionist: Signed [facility]08-07-2025 Procedure [facility] [address] [place] [address] Pacemaker Check Date of Service: 02/08/251424 MR#: [id number] Acct: [id number] Name: BERTA SANCHES Rep #: [id number] : 1945 From: Pau wilson Age/Sex: 79/F Location: [facility] Status: Signed Billing Codes PM Device Codes: 46838 PM Dev Prog Eval, Dual Assessment and Plan Assessment and Plan (1) Presence of Watchman left atrial appendage closure device: Status: Acute (2) Pacemaker: Status: Acute Comment: 10/21/[address] [employer] [place] [address]T DR MRI Droboscan [id number] pulse generator programmed as AAIR (3) Cardiac arrhythmia: Status: Acute Qualifiers: Arrhythmia type: unspecified cardiac arrhythmia Qualified Code(s): I49.9 - Cardiac arrhythmia, unspecified 02/08/251425 > Date _ Pau Mccormack Signature: Date (if applicable) CC: ~ [facility]2025 Evaluation note* Diagnosis Onset Date Resolution Status Admit Date Acute mesenteric insufficiency acute February 05, 2025 8:53am Chronic kidney disease, stage 3b acute February 05, 2025 8:53am Pacemaker acute February 05 8:53am Presence of Watchman left atrial appendage closure device acute February 05, 2025 8:53am Pulmonary hypertension acute 2024 8:53am H/O aortic valve replacement chronic February 05, 2025 8:53am HTN (hypertension) chronic February 05, 2025 8:53am PAF (paroxysmal atrial fibrillation) chronic February 05, 2025 8:53am Cardiac arrhythmia acute February 08, 2025 9:56am Pacemaker acute February 08 9:56am Presence of Watchman left atrial appendage closure device acute February 08, 2025 9:56am Chronic kidney disease, stage 3b acute March 01 8:49am Type 2 diabetes mellitus acute March 01, 2025 8:49am Ulcer of left foot with fat layer exposed acute March 01 8:49am Ulcer of right foot with fat layer exposed acute March 01 8:49am Ulcer of right lower extremity with fat layer exposed acute March 01 8:49am PAD (peripheral artery disease) chronic March 01 8:49am PAF (paroxysmal atrial fibrillation) chronic March 01 8:49am Anemia of chronic renal failure, stage 3 (moderate) chronic Mar 1:46pm Iron deficiency anemia due to chronic blood loss chronic March 13, 2025 1:46pm Anemia noneactive March 13, 2025 1:46pm Chronic kidney disease, stage 3b acute March 29, 2025 11:00am Type 2 diabetes mellitus acute March 29, 2025 11:00am Ulcer of left foot with fat layer exposed acute March 29, 2025 11:00am Ulcer of right foot with fat layer exposed acute March 29, 2025 11:00am Ulcer of right lower extremity with fat layer exposed acute March 29, 2025 11:00am PAD (peripheral artery disease) chronic March 29, 2025 11:00am PAF (paroxysmal atrial fibrillation) chronic March 29, 2025 11:00am Anemia of chronic renal failure, stage 3 (moderate) chronic 2024 2:30pm Iron deficiency anemia due to chronic blood loss chronic April 242024 2:30pm Chronic kidney disease, stage 3b acute May 03 11:15am Type 2 diabetes mellitus acute May 03, 2025 11:15am Ulcer of left foot with fat layer exposed acute May 03 11:15am Ulcer of left lower extremity with fat layer exposed acute May 03 11:15am Ulcer of right foot with fat layer exposed acute May 03 11:15am Ulcer of right lower extremity with fat layer exposed acute May 03, 11:15am PAD (peripheral artery disease) chronic May 03, 11:15am PAF (paroxysmal atrial fibrillation) chronic May 03 11:15am Acute mesenteric insufficiency acute May 07 11:26am Pacemaker acute May 07, 2025 11:26am Presence of Watchman left atrial appendage closure device acute May 07 11:26am Pulmonary hypertension acute No vember 2024 11:26am H/O aortic valve replacement chronic May 07, 2025 11:26am HTN (hypertension) chronic Novemb er 2024 11:26am PAF (paroxysmal atrial fibrillation) chronic May 07 11:26am Chronic kidney disease, stage 3b acute May 10 11:22am Type 2 diabetes mellitus acute May 10, 2025 11:22am Ulcer of left foot with fat layer exposed acute May 10 11:22am Ulcer of left lower extremity with fat layer exposed acute May 10 11:22am Ulcer of right foot with fat layer exposed acute May 10 11:22am Ulcer of right lower extremity with fat layer exposed acute May 10 11:22am PAD (peripheral artery disease) chronic May 10 11:22am PAF (paroxysmal atrial fibrillation) chronic May 10 11:22am [place] [facility] Work Phone: 1(883) 219-986707-28-2025 Telephone encounter Note* Telephone Encounter - Irma Hwang RN - 01/29/2025 5:17 PM EDT Pharmacy electronically requests the following refill(s) Requested Prescriptions Pending Prescriptions Disp Refills simvastatin (ZOCOR) 40 mg tablet [Pharmacy Med Name: SIMVASTATIN 20 MG TAB[*]] 90 tablet 3 Sig: Take 1 tablet by mouth daily at bedtime. Irma Hwang RN [facility]07-28-2025 Miscellaneous Notes* Telephone Encounter - Irma Hwang RN - 01/29/2025 5:17 PM EDT Pharmacy electronically requests the following refill(s) Requested Prescriptions Pending Prescriptions Disp Refills simvastatin (ZOCOR) 40 mg tablet [Pharmacy Med Name: SIMVASTATIN 20 MG TAB[*]] 90 tablet 3 Sig: Take 1 tablet by mouth daily at bedtime. Irma Hwang RN documented in this encounterCleveland [id number] Discharge summary [facility] Medical Records Department [address] [place] [address] Instructions for Home/Discharge Instructions 01/11/25 1226 MR#: [id number] Acct: [id number] Name: BERTA SANCHES Rep #:[id number] : 1945 79 From: [...] Hernandez MD [Non-Staff] - Deysi Collazo NP, OCC MED PHYSICIAN-C [Primary Care Provider] - Disposition Disposition (needs filled in before D/C Order can be placed): Home, Self Care 01/11/25 1230Dianne Stovall DO CC: OCC MED PHYSICIAN-C Deysi Collazo; Dr. Jeremy Mcgarry MD; Dr. Radha Heller MD ~ Signed [facility]07-10-20[facility] Progress note Author Dianne [facility] Note Date/Time January 10, 2025 6:26p [facility] Medical Records Department [address] [place] [address] Progress Note - Hospitalist 01/10/25 1823 MR#: [id number] Acct: [id number] Name: BERTA SANCHES SCOTTIE Rep #:[id number] : 1945 79 From: Dianne Stovall DO PCP: JARROD Cantu Status:ADM I N Location: [place] [address] Reason for Visit Reason for Visit: Diagnoses [...] team: 35-minute Charges/Coding Visit Charges Inpatient E&M: 99473 Subs Hosp L2 NIHSS NIHSS Nursing Documentation NIHSS Nursing Documentation: NIHSS: Ischemic Stroke/TIA Start: 01/08/25 00:49 Freq: [id number] Status: Complete Protocol: Activity Type Activity Date Activity User E-sign Co-sign Detail Recorded Client Recorded Date Recorded By Document 01/08/25 03:22 [id number] 01/08/25 03:24 01/08/25 03:22 NIH Stroke Scale [...] and with change in RN caregiver. Freq: [id number] Protocol: Activity Type Activity Date Activity User E-sign Co-sign Detail Recorded Client Recorded Date Recorded By Document 01/08/25 12:00 [id number] 01/08/25 12:10 01/08/25 12:00 NIH Stroke Scale [...] Oriented [Total] -Coma Scale Total 15 01/10/25 1826 <Electronically signed by Dianne Stovall DO> Cosigner Signature (if applicable): CC: ~ Signed [facility] Work Phone: 1(252) 563-334707-09-2025 Progress note [facility] Medical Records Department [address] [place] [address] Progress Note - Hospitalist 01/10/25 1823 MR#: [id number] Acct: [id number] Name: BERTA SANCHES SCOTTIE Rep #:[id number] : 1945 79 From: Dianne Stovall DO PCP: JARROD Cantu Status:ADM I N Location: [place] [address] Reason for Visit Reason for Visit: Diagnoses [...] team: 35-minute Charges/Coding Visit Charges Inpatient E&M: 48698 Subs Hosp L2 NIHSS NIHSS Nursing Documentation NIHSS Nursing Documentation: NIHSS: Ischemic Stroke/TIA Start: 01/08/25 00:49 Freq: [id number] Status: Complete Protocol: Activity Type Activity Date Activity User E-sign Co-sign Detail Recorded Client Recorded Date Recorded By Document 01/08/25 03:22 [id number] 01/08/25 03:24 01/08/25 03:22 NIH Stroke Scale [...] and with change in RN caregiver. Freq: [id number] Protocol: Activity Type Activity Date Activity User E-sign Co-sign Detail Recorded Client Recorded Date Recorded By Document 01/08/25 12:00 [id number] 01/08/25 12:10 01/08/25 12:00 NIH Stroke Scale [...] Oriented [Total] -Coma Scale Total 15 01/10/25 1826 Cosigner Signature (if applicable): CC: ~ Signed [facility]07-09-2025 Progress note Author Jeremy Mcgarry [facility] Note Date/Time January 10, 2025 11:52 am [facility] Medical Records Department [address] [place] [address] Progress Note - Nephrology 01/10/25 1150 MR#: [id number] Acct: [id number] Name: BERTA SANCHES Rep #:[id number] : 1945 79 From: Jeremy ferris MD PCP: JARROD Cantu Status:ADM I N Location: [place] [address] Subjective Subjective No new complaints today Objective [...] disease, stage 3b: PLAN: Reviewed records from [facility] where her primary care physician is, [facility] where she was admitted in December. 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 She also has left-sided renal artery [...] Cosigner Signature (if applicable): CC: ~ Signed [facility] Work Phone: 1(295) 376-676407-09-2025 Progress note [facility] Medical Records Department [address] [place] [address] Progress Note - Nephrology 01/10/25 1150 MR#: [id number] Acct: [id number] Name: BERTA SANCHES Rep #:[id number] : 1945 79 From: Jeremy ferris MD PCP: JARROD Cantu Status:ADM I N Location: [place] [address] Subjective Subjective No new complaints today Objective [...] disease, stage 3b: PLAN: Reviewed records from [facility] where her primary care physician is, from care [facility] During her hospitalization in October,[facility] where she was admitted [facility] She has had unfortunately 3 hospitalizations within [...] had SMA thrombosis/stenosis, [facility]. She also has left-sided renal artery [...] Cosigner Signature (if applicable): CC: ~ Signed [facility]07-08-2025 Progress note Author Dianne Stovall [facility] Note Date/Time January 09, 2025 2:38p gerard [facility] Medical Records Department [address] [place] [address] Progress Note - Hospitalist 01/08/251848 MR#: [id number] Acct: [id number] Name: BERTA SANCHES Rep #:[id number] : 1945 79 From: Dianne Stovall DO PCP: JARROD Cantu Status:ADM I N Location: [place] [address] Reason for Visit Reason for Visit: Diagnoses [...] for this. Patient was also hospitalized recently [facility] for congestive heart failure. 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 No acute process. Age-related changes of involution and chronic small-vessel ischemic disease Navigator to call report. 11:17 p.m. Reading Location: [facility] Head/Neck CTA 01/07/25 23:08 IMPRESSION: BILATERAL CALCIFIC PLAQUE, PRIMARILY AT THE BIFURCATION BILATERALLY LESS THAN 50% STENOSIS. OCCASIONALLY OTHER PLAQUES ARE SEEN BUT NON FLOW LIMITING. NO LARGE VESSEL OCCLUSION. Requested contact with the referring physician at 11:55 p.m. verbal report to charge nurse Melida at 12:05 a.m. Reading Location: [facility] Carotid Duplex 01/08/25 05:04 Interpretation Summary [...] NIHSS: Ischemic Stroke/TIA Start: 01/08/25 00:49 Freq: [id number] Status: Complete Protocol: Activity Type Activity Date Activity User E-sign Co-sign Detail Recorded Client Recorded Date Recorded By Document 01/08/25 03:22 [id number] 01/08/25 03:24 01/08/25 03:22 NIH Stroke Scale [...] and with change in RN caregiver. Freq: C2MCCIJ Protocol: Activity Type Activity Date Activity User E-sign Co-sign Detail Recorded Client Recorded Date Recorded By Document 01/08/25 12:00 [id number] 01/08/25 12:10 01/08/25 12:00 NIH Stroke Scale [...] team: 35 minutes Visit Charges Inpatient E&M: 27820 Subs Hosp L2 01/09/25 1438<Electronically signed by Dianne Stovall DO> Cosigner Signature (if applicable): cc: ~* Signed [facility] Work Phone: 1(425) 449-267507-08-2025 Progress note Author D[facility]ne [facility] Note Date/Time January 09, 2025 2:37p m [facility] Medical Records Department [address] [place] [address] Progress Note - Hospitalist 01/09/25 1434 MR#: [id number] Acct: [id number] Name: BERTA SANCHES Rep #:[id number] : 1945 79 From: Dianne Stovall DO PCP: JARROD Cantu Status:ADM I N Location: [place] [address] Reason for Visit Reason for Visit: Diagnoses [...] 35 minutes Charges/Coding Visit Charges Inpatient E&M: 40323 Subs Hosp L2 NIHSS NIHSS Nursing Documentation NIHSS Nursing Documentation: NIHSS: Ischemic Stroke/TIA Start: 01/08/25 00:49 Freq: [id number] Status: Complete Protocol: Activity Type Activity Date Activity User E-sign Co-sign Detail Recorded Client Recorded Date Recorded By Document 01/08/25 03:22 [id number] 01/08/25 03:24 01/08/25 03:22 NIH Stroke Scale [...] and with change in RN caregiver. Freq: S7YUTNK Protocol: Activity Type Activity Date Activity User E-sign Co-sign Detail Recorded Client Recorded Date Recorded By Document 01/08/25 12:00 [id number] 01/08/25 12:10 01/08/25 12:00 NIH Stroke Scale [...] Cosigner Signature (if applicable): CC: ~ Signed [facility] Work Phone: 1(956) 421-308607-08-2025 Progress note [facility] Medical Records Department [address] [place] [address] Progress Note - Hospitalist 01/08/25 1849 MR#: [id number] Acct: [id number] Name: BERTA SANCHES Rep #:[id number] : 1945 79 From: Dianne Stovall DO PCP: JARROD Cantu Status:ADM I N Location: [place] [address] Reason for Visit Reason for Visit: Diagnoses [...] intervention for this. Patient was also hospitalized [facility] for congestive heart failure. 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 11:17 p.m. Reading Location: [facility] Head/Neck CTA 01/07/25 23:08 IMPRESSION: BILATERAL CALCIFIC PLAQUE, PRIMARILY AT THE BIFURCATION BILATERALLY LESS THAN 50% STENOSIS. OCCASIONALLY OTHER PLAQUES ARE SEEN BUT NON FLOW LIMITING. NO LARGE VESSEL OCCLUSION. Requested contact with the referring physician at 11:55 p.m. verbal report to charge nurse Melida at12:05 a.m. Reading Location: [facility] Carotid Duplex 01/08/25 05:04 Interpretation Summary [...] NIHSS: Ischemic Stroke/TIA Start: 01/08/25 00:49 Freq: [id number] Status: Complete Protocol: Activity Type Activity Date Activity User E-sign Co-sign Detail Recorded Client Recorded Date Recorded By Document 01/08/25 03:22 [id number] 01/08/25 03:24 01/08/25 03:22 NIH Stroke Scale [...] and with change in RN caregiver. Freq: U5OKCUD Protocol: Activity Type Activity Date Activity User E-sign Co-sign Detail Recorded Client Recorded Date Recorded By Document 01/08/25 12:00 [id number] 01/08/25 12:10 01/08/25 12:00 NIH Stroke Scale [...] team: 35 minutes Visit Charges Inpatient E&M: 09852 Subs Hosp L2 01/09/25 1438 Cosigner Signature (if applicable): cc: ~* Signed [facility]07-08-2025 Progress note [facility] Medical Records Department [address] [place] [address] Progress Note - Hospitalist 01/09/25 1434 MR#: [id number] Acct: [id number] Name: BERTA SANCHES SCOTTIE Rep #:[id number] : 1945 79 From: Dianne Stovall DO PCP: JARROD Cantu Status:ADM I N Location: [place] [address] Reason for Visit Reason for Visit: Diagnoses [...] failure-patient remains on Lasixdrip at this time, Juan Miguel reevaluate her tomorrow #2 essential hypertension-patient will [...] 35 minutes Charges/Coding Visit Charges Inpatient E&M: 25054 Subs Hosp L2 NIHSS NIHSS Nursing Documentation NIHSS Nursing Documentation: NIHSS: Ischemic Stroke/TIA Start: 01/08/25 00:49 Freq: [id number] Status: Complete Protocol: Activity Type Activity Date Activity User E-sign Co-sign Detail Recorded Client Recorded Date Recorded By Document 01/08/25 03:22 [id number] 01/08/25 03:24 01/08/25 03:22 NIH Stroke Scale [...] and with change in RN caregiver. Freq: F0ZVHCL Protocol: Activity Type Activity Date Activity User E-sign Co-sign Detail Recorded Client Recorded Date Recorded By Document 01/08/25 12:00 [id number] 01/08/25 12:10 01/08/25 12:00 NIH Stroke Scale [...] Cosigner Signature (if applicable): CC: ~ Signed [facility]07-08-2025 Progress note Author Jeremy Mcgarry [facility] Note Date/Time January 09, 2025 12:22 pm [facility] Medical Records Department [address] [place] [address] Progress Note 01/09/251220 MR#: [id number] Acct: [id number] Name: BERTA SANCHES Rep #:[id number] : 1945 79 From: Jeremy ferris MD PCP: JARROD Cantu Status:ADM I N Location: [place] [address] Progress Note patient was in bathroom today [...] Cosigner Signature (if applicable): CC: ~ Signed [facility] Work Phone: 1(261) 521-469907-08-2025 Progress note [facility] Medical Records Department [address] [place] [address] Progress Note 01/09/251220 MR#: [id number] Acct: [id number] Name: BERTA SANCHES Rep #:[id number] : 1945 79 From: Jeremy ferris MD PCP: Deysi Haagen, OCC MED PHYSICIAN-C Status:ADM I N [facility] Note patient was in bathroom today could not examine labs reviewed cr stable plan continue lasix drip till closer to dry weight at dc add bumex 2 mg BID/lasix 80 mg BID continue aldactone metolazone 5 mg as needed KCL 20 meq daily will arrange follow up after dc 01/09/25 1222 Jeremy Mcgarry MD Cosigner Signature (if applicable): CC: ~ Signed [facility]07-08-2025 Discharge summary Author Dianne Stovall [facility] Note Date/Time January 09, 2025 9:02a m [facility] Medical Records Department [address] [place] [address] Instructions for Home/Discharge Instructions 01/08/25 1536 MR#: [id number] Acct: [id number] Name: BERTA SANCHES Rep #:[id number] : 1945 79 From: Dianne Stovall DO PCP: JARROD Cantu Status:ADM I N Discharge Instructions Diet [...] Hernandez MD [Non-Staff] - Deysi Collazo NP, OCC MED PHYSICIAN-C [Primary Care Provider] - Disposition Disposition (needs filled in before D/C Order can be placed): Home, Self Care 01/09/25 0902<Electronically signed by Dianne Stovall DO>Dianne Stovall DO CC: Josefina Arrieta; Chelsi Pulido; OCC MED PHYSICIAN-C Deysi Collazo; Jonathan Funez; Charley Berger MD; [...] Gates DO; Jessa Lee MD ~ Signed [facility] Work Phone: 1(287) 282-648007-08-2025 Discharge summary [facility] Medical Records Department [address] [place] [address] Instructions for Home/Discharge Instructions 01/08/25 1536 MR#: [id number] Acct: [id number] Name: BERTA SANCHES Rep #:[id number] : [...] Hernandez MD [Non-Staff] - Deysi Collazo NP, OCC MED PHYSICIAN-C [Primary Care Provider] - Disposition Disposition (needs filled in before D/C Order can be placed): Home, Self Care 01/09/25 0902Denver Wilman CURRY CC: Josefina Arrieta; Chelsi Pulido; OCC MED PHYSICIAN-C Deysi Collazo; Jonathan Funez; Charley Berger MD; [...] Karyna Gates DO; Jessa Lee MD ~ [facility]07-07-2025 Consult note Author Jeremy Mcgarry [facility] Note Date/Time January 08, 2025 5:03p [facility] Medical Records Department [address] [place] [address] Consultation - Nephrology 01/08/25 1655 MR#: [id number] Acct: [id number] Name: BERTA SANCHES Rep #:[id number] : 1945 79 From: Jeremy ferris MD PCP: JARROD Cantu Status:ADM I N Location: [place] [address] Assessment & Plan Assessment/Plan (1) Chronic kidney disease, stage 3b: PLAN: Reviewed records from [facility] where her primary care physician is, [facility] where she was admitted in December. 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 She also has left-sided renal artery [...] complicated course recently. She is originally from [place], was in [place] for the winter, had a long hospitalization in [facility]. History of congestive heart failure with diastolic dysfunction, BNP has been consistently high. Was seeing cardiology at [facility]. Has been on diuretic, despite that worsening heart failure. Apparently gained more than 10 pounds. Baseline weight is around 140 pounds, went up to 154 pounds. Being started on Lasix drip. [facility] Medical History (Updated 01/08/25 @ 16:58 by [...] % (Auto) 47.3, Lymph % (Auto) 33.8, [place] % (Auto) 15.5 H, Eos % (Auto) [...] to call report. 11:17 p.m. Reading [facility] Head/Neck CTA 01/07/25 23:08 IMPRESSION: BILATERAL CALCIFIC PLAQUE, PRIMARILY AT THE BIFURCATION BILATERALLY LESS THAN 50% STENOSIS. OCCASIONALLY OTHER PLAQUES ARE SEEN BUT NON FLOW LIMITING. NO LARGE VESSEL OCCLUSION. Requested contact with the referring physician at 11:55 p.m. verbal report to charge nurse Melida at 12:05 a.m. Reading Location: [facility] Carotid Duplex 01/08/25 05:04 Interpretation Summary Mild (<50%) stenosis right extracranial internal carotid. Mild (<50%) stenosis left extracranial internal carotid. Patent and antegrade vertebrals bilaterally. Ordering Physician: Carla Ha Referring Physician: Deysi Collazo Performed By: Sony Perez, RVT 01/08/25 1703 <Electronically signed by Jeremy Mcgarry MD> Cosigner Signature (if applicable): CC: OCC MED PHYSICIAN-C Deysi Collazo~ Signed [facility] Work Phone: 1(154) 201-292907-07-2025 Progress note Author Noris Brock [facility] Note Date/Time January 08, 2025 3:23p m [facility] Medical Records Department [address] [place] [address] Progress Note - Neurology 01/08/25 1514 MR#: [id number] Acct: [id number] Name: VERÓNICATAMERA MARTINSRA RUBIN Rep #:[id number] : 1945 79 From: Noris Brock MD PCP: JARROD Cantu Status:ADM I N Location: [place] [address] Objective Data Objective Data Vital Signs: Vital [...] % (Auto) 47.3, Lymph % (Auto) 33.8, [place] % (Auto) 15.5 H, Eos % (Auto) [...] to call report. 11:17 p.m. Reading Location[facility] Head/Neck CTA 01/07/25 23:08 IMPRESSION: BILATERAL CALCIFIC PLAQUE, PRIMARILY AT THE BIFURCATION BILATERALLY LESS THAN 50% STENOSIS. OCCASIONALLY OTHER PLAQUES ARE SEEN BUT NON FLOW LIMITING. NO LARGE VESSEL OCCLUSION. Requested contact with the referring physician at 11:55 p.m. verbal report to charge nurse Melida at 12:05 a.m. Reading Location: [facility] Carotid Duplex 01/08/25 05:04 Interpretation Summary Mild [...] NIHSS: Ischemic Stroke/TIA Start: 01/08/25 00:49 Freq: [id number] Status: Complete Protocol: Activity Type Activity Date Activity User E-sign Co-sign Detail Recorded Client Recorded Date Recorded By Document 01/08/25 03:22 [id number] 01/08/25 03:24 01/08/25 03:22 NIH Stroke Scale [...] and with change in RN caregiver. Freq: [id number] Protocol: Activity Type Activity Date Activity User E-sign Co-sign Detail Recorded Client Recorded Date Recorded By Document 01/08/25 12:00 [id number] 01/08/25 12:10 01/08/25 12:00 NIH Stroke Scale [...] Cosigner Signature (if applicable): CC: ~ Signed [facility] Work Phone: 1(617) 281-373807-07-2025 Consult note [facility] Medical Records Department [address] [place] [address] Consultation - Nephrology 01/08/25 1655 MR#: [id number] Acct: [id number] Name: BERTA SANCHES Rep #:[id number] : 1945 79 From: Jeremy ferris MD PCP: JARROD Cantu Status:ADM I N Location: [place] [address] Assessment & Plan Assessment/Plan (1) Chronic kidney disease, stage 3b: PLAN: Reviewed records from [facility] where her primary care physician is, [facility] During [facility] in October,[facility] where she was admitted [facility] She has had unfortunately 3 hospitalizations within [...] had SMA thrombosis/stenosis, had stents [facility]. She also has left-sided renal artery [...] complicated course recently. She is originally from [place], was in [place] for the winter, had a long hospitalization [facility]. History of congestive heart failure with diastolic dysfunction, BNP has been consistently high. Wasseeing cardiology at [facility]. Has been on diuretic, despite that worsening heart failure. Apparently gained more than 10 pounds. Baseline weight is around 140 pounds, went up to 154 pounds. Being started on Lasix drip. [facility] Medical History (Updated 01/08/25 @ 16:58 by [...] % (Auto) 47.3, Lymph % (Auto) 33.8, [place] % (Auto) 15.5 H, Eos % (Auto) [...] to call report. 11:17 p.m. Reading Location: [facility] Head/Neck CTA 01/07/25 23:08 IMPRESSION: BILATERAL CALCIFIC PLAQUE, PRIMARILY AT THE BIFURCATION BILATERALLY LESS THAN 50% STENOSIS. OCCASIONALLY OTHER PLAQUES ARE SEEN BUT NON FLOW LIMITING. NO LARGE VESSEL OCCLUSION. Requested contact with the referring physician at 11:55 p.m. verbal report to charge nurse Melida at12:05 a.m. Reading Location: [facility] Carotid Duplex 01/08/25 05:04 Interpretation Summary Mild (<50%) stenosis right extracranial internal carotid. Mild (<50%) stenosis left extracranial internal carotid. Patent and antegrade vertebrals bilaterally. Ordering Physician: Carla Ha Referring Physician: Deysi Collazo Performed By: Sony Perez RVT 01/08/25 1703 Cosigner Signature (if applicable): CC: JARROD Collazo~ Signed [facility]07-07-2025 Progress note [facility] Medical Records Department [address] [place] [address] Progress Note - Neurology 01/08/25 1514 MR#: [id number] Acct: [id number] Name: BERTA SANCHES Rep #:[id number] : 1945 79 From: Noris Brock MD PCP: Deysi Collazo, OCC MED PHYSICIAN-C Status:ADM I N Location: [place] [address] Objective Data Objective Data Vital Signs: Vital [...] % (Auto) 47.3, Lymph % (Auto) 33.8, [place] % (Auto) 15.5 H, Eos % (Auto) [...] to call report. 11:17 p.m. Reading Location[facility] Head/Neck CTA 01/07/25 23:08 IMPRESSION: BILATERAL CALCIFIC PLAQUE, PRIMARILY AT THE BIFURCATION BILATERALLY LESS THAN 50% STENOSIS. OCCASIONALLY OTHER PLAQUES ARE SEEN BUT NON FLOW LIMITING. NO LARGE VESSEL OCCLUSION. Requested contact with the referring physician at 11:55 p.m. verbal report to charge nurse Melida at12:05 a.m. Reading Location: [facility] Carotid Duplex 01/08/25 05:04 Interpretation Summary [...] NIHSS: Ischemic Stroke/TIA Start: 01/08/25 00:49 Freq: [id number] Status: Complete Protocol: Activity Type Activity Date Activity User E-sign Co-sign Detail Recorded Client Recorded Date Recorded By Document 01/08/25 03:22 [id number] 01/08/25 03:24 01/08/25 03:22 NIH Stroke Scale [...] and with change in RN caregiver. Freq: [id number] Protocol: Activity Type Activity Date Activity User E-sign Co-sign Detail Recorded Client Recorded Date Recorded By Document 01/08/25 12:00 [id number] 01/08/25 12:10 01/08/25 12:00 NIH Stroke Scale [...] Cosigner Signature (if applicable): CC: ~ Signed [facility]07-07-2025 Progress note Author Carla Barksdale [facility] Note Date/Time January 08, 2025 1:58a m [facility] Medical Records Department [address] [place] [address] Progress Note - Hospitalist 01/07/25 5165 MR#: [id number] Acct: [id number] Name: BERTA SANCHES SCOTTIE Rep #:[id number] : 1945 79 From: Carla Rashid DO PCP: JARROD Cantu Status:ADM I N Location: [place] [address] Hospitalist Note Stroke alert was called overhead [...] in 24 hours as per neurology recommendations. HSPT TUTOR was updated with plan. [facility] Imaging Services [address] [place], [place] [address] STROKE Brain/Head without Cont MR#: [id number] Acct: [id number] Name: BERTA SANCHES Rep #: [id number] : 1945 F 79 From: Jonathan Paul DO PCP: JARROD Cantu Status: ADM IN Study: STROKE Brain/Head without Cont Date of Exam: 01/07/25 Exam# [id number] Ordering Dr: Carla Ha DO PROCEDURE: STROKE [...] to call report. 11:17 p.m. Reading Location: [facility] CC: JARROD Clolazo; Dr. Carla de Shamir, DO ~ Holistic Nutritionist: Signed ----- [facility] Imaging Services [address] [place], [place] [address] STROKE CTA Head AND Neck W/Con MR#: [id number] Acct: [id number] Name: BERTA SANCHES SCOTTIE Rep #: [id number] : 1945 F 79 From: Jonathan Paul DO PCP: JARROD Cantu Status: ADM IN Study: STROKE CTA Head AND Neck W/Con Date of Exam: 01/07/25 Exam# [id number] Ordering Dr: Carla Ha DO PROCEDURE: STROKE [...] nurse Melida at 12:05 a.m. Reading Location: [facility] CC: JARROD Collazo; Dr. Carla Ha DO ~ Holistic Nutritionist: Signed 01/08/25 0158 <Electronically signed by Carla Ha DO> Cosigner Signature (if applicable): CC: ~ Signed [facility] Work Phone: 1(304) 338-189807-07-2025 Progress note [facility] Medical Records Department [address] [place] [address] Progress Note - Hospitalist 01/07/25 2335 MR#: [id number] Acct: [id number] Name: BERTA SANCHES SCOTTIE Rep #:[id number] : 1945 79 From: Carla Rashid DO PCP: JARROD Cantu Status:ADM I N Location: [place] [address] Hospitalist Note Stroke alert was called overhead [...] neurologic insult. She has a pacemaker in p lace and an investigation will be made to see if it is MRI compatible. She will undergo MRI of the brain without contrast in the morning if her pacemaker is compatible. If not she will repeat her head CT in 24 hours as per neurology recommendations. HSPT TUTOR was updated with plan. [facility] Imaging Services [address] [place] [id number] STROKE Brain/Head without Cont MR#: [id number] Acct: [id number] Name: BERTA SANCHES SCOTTIE Rep #: [id number] : 1945 F 79 From: Jonathan Paul DO PCP: JARROD Cantu Status: ADM IN Study: STROKE Brain/Head without Cont Date of Exam: 01/07/25 Exam# [id number] Ordering Dr: Carla Ha DO PROCEDURE: STROKE [...] to call report. 11:17 p.m. Reading [facility] CC: JARROD Collazo; Dr. Carla Ha DO ~ Holistic Nutritionist: Signed [facility] Imaging Services [address] [place] [id number] STROKE CTA Head AND Neck W/Con MR#: [id number] Acct: [id number] Name: BERTA SANCHES Rep #: [id number] : 1945 F 79 From: Jonathan Paul DO PCP: JARROD Cantu Status: ADM IN Study: STROKE CTA Head AND Neck W/Con Date of Exam: 01/07/25 Exam# [id number] Ordering Dr: Carla Ha DO PROCEDURE: STROKE [...] charge nurse Melida at12:05 a.m. Reading Location[facility] CC: JARROD Collazo; Dr. Carla Ha DO ~ Holistic Nutritionist: Signed 01/08/25 0158 Cosigner Signature (if applicable): CC: ~ Signed [facility]07-07-2025 Radiology Diagnostic study note [facility] Imaging Services [address] [place] [address] STROKE CTA Head AND Neck W/Con MR#: [id number] Acct: [id number] Name: BERTA SANCHES SCOTTIE Rep #: [id number] : 1945 F 79 From: Pet er Humberto CURRY PCP: Deysi Haagen, OCC MED PHYSICIAN-C Status: ADM I N Study:STROKE CTA Head AND Neck W/Con Date of Exam: 01/07/25 Exam# [id number] Ordering Dr: Carla Rayo DO PROCEDURE: STROKE [...] charge nurse Melida at12:05 a.m. Reading Location[facility] CC: OCC MED PHYSICIANSammy Collazo; Dr. Carla Ha DO ~ Holistic Nutritionist: Signed [facility]07-06-2025 Radiology Diagnostic study note [facility] Imaging Services [address] [place], [place] [id number] STROKE Brain/Head without Cont MR#: [id number] Acct: [id number] Name: BERTA SANCHES Rep #: [id number] : 1945 F 79 From: Pet er Peer PCP: JARROD Cantu Status: ADM I N Study:STROKE Brain/Head without Cont Date of Exam: 01/07/25 Exam# [id number] Ordering Dr: Carla Rayo DO PROCEDURE: STROKE [...] to call report. 11:17 p.m. Reading Location: [facility] CC: JARROD Collazo; Dr. Carla Ha DO ~ Holistic Nutritionist: Signed [facility]07-06-2025 Discharge summary Author Sheree Simmons [facility] Note Date/Time January 07, 2025 5:04p m [facility] Medical Records Department [address] [place] [address] Emergency Department Summary 01/07/25 MR#: [id number] Acct: [id number] Name: BERTA SANCHES Rep #:[id number] : 1945 79 From: Sheree KING PCP: JARROD Cantu Status:ADM I N Location: [address] <FERNANDO Uriostegui - Last Filed: 01/07/25 16:48> [...] September 2023 she had surgery in [place] for some type of intra-abdominal artery blockage and was started on Plavix in addition to her baseline aspirin 81 mg. She states she was also having issues with her congestive heart failure. She came home at the end of October and has been taking her normal Lasix 40 mg twice daily and spironolactone 12.5 mg twice daily without improvement. She saw her [facility] clinic sales property manager Dr. Burdick on January 01. He changed [...] is from allergies but no significant cough. [facility] <FERNANDO Uriostegui - Last Filed: 01/07/25 16:48> [facility] Medical History (Updated 01/07/25 @ 17:04 by [...] Oxygen Delivery Method Room Air Room Air [facility] <FERNANDO Uriostegui - Last Filed: 01/07/25 16:48> [facility] Narrative Medical decision making narrative: History [...] dose of Lasix as instructed by her sales property manager without improvement. She is awake alertno distress. [...] heart failure. 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 She was hospitalized for 23days. She is followed by sales property manager through the [facility]. She statesshe has difficulty contacting him and seeing him. She was offered option to follow-up with sales property manager in [place]. Patient denies fever, chills night sweats. Patient [...] % (Auto) 59.8 Lymph % (Auto) 24.2 [place] % (Auto) 12.9 H Eos % (Auto) [...] Hr 68 H* [place] [address] H Radiography Diagnostic Testing: Clinical Impression(s) from Imaging Studies Chest X-Ray 01/07/25 13:19 IMPRESSION: Findings consistent with mild congestive heart failure. Reading Location: [id number] ED attending interpretation of 2 view chest x-ray shows mild congestive heart failure. EKG Initial EKG: Attestation: I personally reviewed and interpreted this EKG as follows: Interpretation: No Acute Injury Pattern and Atrial Fibrillation Comments: Atrial fibrillation at 77 bpm, occasional ventricular paced complexes Left anterior fascicular block Nonspecific ST changes, no STEMI <Dr. Luis Armando Harry MD - Last Filed: 01/07/25 17:04> [facility] MDM Narrative Medical decision making narrative: History gathered from: Patient and spouse 79-year-old female presents with several weeks of dyspnea and bilateral lower extremity edema. She has had tight swelling from both thighs and down for several weeks. Over the last 5 days she has been taking an increased dose of Lasix as instructed by her sales property manager without improvement. She is awake alertno distress. [...] heart failure. 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 She was hospitalized for 23days. She is followed by sales property manager through the [facility]. She statesshe has difficulty contacting him and seeing him. She was offered option to follow-up with sales property manager in [place]. Patient denies fever, chills night sweats. Patient [...] % (Auto) 59.8 Lymph % (Auto) 24.2 [place] % (Auto) 12.9 H Eos % (Auto) [...] Hr 68 H* [place] [address] H Radiography Diagnostic Testing: Clinical Impression(s) from Imaging Studies Chest X-Ray 01/07/25 13:19 IMPRESSION: Findings consistent with mild congestive heart failure. Reading Location: [id number] Management Discussion w/another healthcare provider: Hospitalist (Documented [...] your Primary Care Provider. Call [facility] ([phone]) or report to the closest Emergency Room. Call 911 if necessary. 01/07/25 1648 <Electronically signed by Sheree KING> Cosigner Signature (if applicable): 01/07/25 1704 <Electronically signed by Romel UGARTE> CC: OCC MED PHYSICIAN-C Deysi Collazo ~ Signed [facility] Work Phone: 1(431) 228-244307-06-2025 History and physical note Author Radha Heller [facility] Note Date/Time January 07, 2025 4:35p m [facility] Medical Records Department [address] [place] [address] H&P Exam - Hospitalist 01/07/25 1629 MR#: [id number] Acct: [id number] Name: BERTA SANCHES SCOTTIE Rep #:[id number] : 1945 79 From: Radha Heller MD PCP: JARROD Cantu Status:REG E R Location: ED HPI - General General Date of Admission: 01/07/25 Date of Service: 01/07/25 Chief Complaint: Increased shortness of breath and swelling HPI Narrative BERTA SANCHES, is a 79-year-old female history of hypertension, diabetes, pacemaker, AV replacement, A-fib status post Watchman device, congestive heart failure presented [facility] ED 01/07/2025 with several weeks of shortness of breath and bilateral lower extremity edema. Reportedly in September 2023 she had surgery in [place] for some kind of intra-abdominal artery blockageand was placed on Plavix and aspirin and was having difficulties with her heart failure at that time. She came home at the end of October and has been taking herLasix 40 twice daily and spironolactone 12.5 mg twice daily without improvement. She recently followed with her [facility] sales property manager with increase in her Lasix by mouth [...] bowel or bladder changes. ROS otherwise negative [facility] Medical History Anxiety Brain aneurysm Bronchospasm with [...] % (Auto) 59.8, Lymph % (Auto) 24.2, [place] % (Auto) 12.9 H, Eos % (Auto) [...] Sens 71 H*, [place] [address] H 01/07/25 14:54: Troponin T Hi Sens 2 Hr 68 H* Imaging Radiology Impression Chest X-Ray 01/07/25 13:19 IMPRESSION: Findings consistent with mild congestive heart failure. Reading Location: [id number] Assessment & Plan Assessment/Plan (1) CHF exacerbation: [...] Heller MD Charges/Coding Visit Charges Inpatient E&M: 33745 Init Hosp L2 01/07/25 1635 <Electronically signed by Radha Heller MD> Cosigner Signature (if applicable): CC: JARROD Collazo; Dr. Radha Heller MD~ Signed [facility] Work Phone: 1(594) 662-775007-06-2025 Evaluation note* Diagnosis Onset Date Resolution Status Admit Date MONIQUE (acute kidney injury) acute January 07, 2025 4:29pm CHF exacerbation acute January 4:29pm Chronic kidney disease, stage 3b acu te January 07, 2025 4:29pm [facility] Work Phone: 1(147) 151-158907-06-2025 Evaluation note* Diagnosis Onset Date Resolution Status Admit Date Chronic kidney disease, stage 3b acu te January 07, 2025 4:29pm MONIQUE (acute kidney injury) inactive January 07, 2025 4:29pm CHF exacerbation inactive January 4:29pm [facility] Work Phone: 1([phone]) 378-829607-06-2025 Evaluation note* Diagnosis Onset Date Resolution Status Admit Date Chronic kidney disease, stag e 3b acute January 07, 2025 4 :29pm MONIQUE (acute kidney injury) inactive January 07, 2025 4:29pm CHF exacerbation inactive January 4:29pm Chronic renal failure (CRF), stage 3b acute February 05, 2025 8:53am [facility] Work Phone: [phone]) 191-550707-06-2025 Evaluation note* Diagnosis Onset Date Resolution Status Admit Date Chronic kidney disease, stag e 3b acute January 07, 2025 4 :29pm MONIQUE (acute kidney injury) inactive January 07, 2025 4:29pm CHF exacerbation inactive January 4:29pm Acute mesenteric insufficiency acute February 05, 2025 8:53am Chronic kidney disease, stag e 3b acute February 05, 2025 8:53am Pacemaker acute February 05 8:53am Presence of Watchman left atrial appendage closure device acute February 05, 2025 8:53am Pulmonary hypertension acute Au 2024 8:53am H/O aortic valve replacement chronic February 05, 2025 8:53am HTN (hypertension) chronic February 05, 2025 8:53am PAF (paroxysmal atrial fibrillation) chronic February 05, 2025 8:53am [facility] Work Phone: 1([phone] 363-192407-06-2025 Evaluation note* Diagnosis Onset Date Resolution Status Admit Date Chronic kidney disease, stag e 3b acute January 07, 2025 4 :29pm MONIQUE (acute kidney injury) inactive January 07, 2025 4:29pm CHF exacerbation inactive January 4:29pm Acute mesenteric insufficiency acute February 05, 2025 8:53am Chronic kidney disease, stag e 3b acute February 05, 2025 8:53am Pacemaker acute February 05 8:53am Presence of Watchman left atrial appendage closure device acute February 05, 2025 8:53am Pulmonary hypertension acute 2024 8:53am H/O aortic valve replacement chronic February 05, 2025 8:53am HTN (hypertension) chronic February 05, 2025 8:53am PAF (paroxysmal atrial fibrillation) chronic February 05, 2025 8:53am Cardiac arrhythmia acute February 08, 2025 9:56am Pacemaker acute February 08 9:56am Presence of Watchman left atrial appendage closure device acute February 08, 2025 9:56am [facility] [employer] Work Phone: 1([phone]) 324-285207-06-2025 Evaluation note* Diagnosis Onset Date Resolution Status Admit Date Chronic kidney disease, stag e 3b acute January 07, 2025 4 :29pm MONIQUE (acute kidney injury) inactive January 07, 2025 4:29pm CHF exacerbation inactive January 4:29pm Acute mesenteric insufficiency acute February 05, 2025 8:53am Chronic kidney disease, stag e 3b acute February 05, 2025 8:53am Pacemaker acute February 05 8:53am Presence of Watchman left atrial appendage closure device acute February 05, 2025 8:53am Pulmonary hypertension acute 2024 8:53am H/O aortic valve replacement chronic February 05, 2025 8:53am HTN (hypertension) chronic February 05, 2025 8:53am PAF (paroxysmal atrial fibrillation) chronic February 05, 2025 8:53am Cardiac arrhythmia acute February 08, 2025 9:56am Pacemaker acute February 08 9:56am Presence of Watchman left atrial appendage closure device acute February 08, 2025 9:56am Chronic kidney disease, stag e 3b acute March 01 8:49am Type 2 diabetes mellitus acute March 01, 2025 8:49am Ulcer of left foot with fat layer exposed acute March 01 8:49am Ulcer of right foot with fat layer exposed acute March 01 8:49am Ulcer of right lower extremi ty with fat layer exposed acute March 012024 8:49am PAD (peripheral artery disease) lining 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 March 01, 2025 8:49am PAF (paroxysmal atrial fibrillation) chronic March 01 8:49am [facility] Work Phone: [phone] Evaluation note* Diagnosis Onset Date Resolution Status Admit Date Chronic kidney disease, stage 3b acute January 07, 2025 4 :29pm MONIQUE (acute kidney injury) inactive January 07, 2025 4:29pm CHF exacerbation inactive January 4:29pm Acute mesenteric insufficiency acute February 05, 2025 8:53am Chronic kidney disease, stage 3b acute February 05, 2025 8:53am Pacemaker acute February 05 8:53am Presence of Watchman left atrial appendage closure device acute February 05, 2025 8:53am Pulmonary hypertension acute 2024 8:53am H/O aortic valve replacement chronic February 05, 2025 8:53am HTN (hypertension) chronic February 05, 2025 8:53am PAF (paroxysmal atrial fibrillation) February 05, 2025 8:53am Cardiac arrhythmia acute February 08, 2025 9:56am Pacemaker acute February 08 9:56am Presence of Watchman left atrial appendage closure device acute February 08, 2025 9:56am Chronic kidney disease, stage 3b acute March 01 8:49am Type 2 diabetes mellitus acute March 01, 2025 8:49am Ulcer of left foot with fat layer exposed acute March 01 8:49am Ulcer of right foot with fat layer exposed acute March 01 8:49am Ulcer of right lower extremity with fat layer exposed acute March 01 8:49am PAD (peripheral artery disease) chronic March 01 8:49am PAF (paroxysmal atrial fibrillation) chronic March 01 8:49am Chronic kidney disease, stage 3b acute March 08, 025 8:57am Type 2 diabetes mellitus acute March 08, 2025 8:57am Ulcer of left foot with fat layer exposed acute March 08 8:57am Ulcer of right foot with fat layer exposed acute March 08 8:57am Ulcer of right lower extremity with fat layer exposed acute March 08 8:57am PAD (peripheral artery disease) chronic March 08 8:57am PAF (paroxysmal atrial fibrillation) chronic March 08 8:57am Anemia noneactive March 13, 2025 1:46pm [facility] Work Phone: [phone]) [phone] Evaluation note* Diagnosis Onset Date Resolution Status Admit Date Chronic kidney disease, stage 3b acute January 07, 2025 4 :29pm MONIQUE (acute kidney injury) inactive January 07, 2025 4:29pm CHF exacerbation inactive January 4:29pm Acute mesenteric insufficiency acute February 05, 2025 8:53am Chronic kidney disease, stage 3b acute February 05, 2025 8:53am Pacemaker acute February 05 8:53am Presence of Watchman left atrial appendage closure device acute February 05, 2025 8:53am Pulmonary hypertension acute 2024 8:53am H/O aortic valve replacement chronic February 05, 2025 8:53am HTN (hypertension) chronic February 05, 2025 8:53am PAF (paroxysmal atrial fibrillation) February 05, 2025 8:53am Cardiac arrhythmia acute February 08, 2025 9:56am Pacemaker acute February 08 9:56am Presence of Watchman left atrial appendage closure device acute February 08, 2025 9:56am Chronic kidney disease, stage 3b acute March 01 8:49am Type 2 diabetes mellitus acute March 01, 2025 8:49am Ulcer of left foot with fat layer exposed acute March 01 8:49am Ulcer of right foot with fat layer exposed acute March 01 8:49am Ulcer of right lower extremity with fat layer exposed acute March 01 8:49am PAD (peripheral artery disease) chronic March 01 8:49am PAF (paroxysmal atrial fibrillation) chronic March 01 8:49am Anemia of chronic renal failure, stage 3 (moderate) chronic Mar 1:46pm Iron deficiency anemia due to chronic blood loss chronic March 13, 2025 1:46pm Anemia noneactive March 13, 2025 1:46pm Chronic kidney disease, stage 3b acute March 15, 2025 11:00am Type 2 diabetes mellitus acute March 15, 2025 11:00am Ulcer of left foot with fat layer exposed acute March 15, 2025 11:00am Ulcer of right foot with fat layer exposed acute March 15, 2025 11:00am Ulcer of right lower extremity with fat layer exposed acute March 15, 2025 11:00am PAD (peripheral artery disease) chronic March 15, 2025 11:00am PAF (paroxysmal atrial fibrillation) chronic March 15, 2025 11:00am [facility] Work Phone: [phone]) [phone] Evaluation note* Diagnosis Onset Date Resolution Status Admit Date Chronic kidney disease, stage 3b acute January 07, 2025 4 :29pm MONIQUE (acute kidney injury) inactive January 07, 2025 4:29pm CHF exacerbation inactive January 4:29pm Acute mesenteric insufficiency acute February 05, 2025 8:53am Chronic kidney disease, stage 3b acute February 05, 2025 8:53am Pacemaker acute February 05 8:53am Presence of Watchman left atrial appendage closure device acute February 05, 2025 8:53am Pulmonary hypertension acute 2024 8:53am H/O aortic valve replacement chronic February 05, 2025 8:53am HTN (hypertension) chronic February 05, 2025 8:53am PAF (paroxysmal atrial fibrillation) chronic February 05, 2025 8:53am Cardiac arrhythmia acute February 08, 2025 9:56am Pacemaker acute February 08 9:56am Presence of Watchman left atrial appendage closure device acute February 08, 2025 9:56am Chronic kidney disease, stage 3b acute March 01 8:49am Type 2 diabetes mellitus acute March 01, 2025 8:49am Ulcer of left foot with fat layer exposed acute March 01 8:49am Ulcer of right foot with fat layer exposed acute March 01 8:49am Ulcer of right lower extremity with fat layer exposed acute March 01 8:49am PAD (peripheral artery disease) chronic March 01 8:49am PAF (paroxysmal atrial fibrillation) chronic March 01 8:49am Anemia of chronic renal failure, stage 3 (moderate) chronic Mar 1:46pm Iron deficiency anemia due to chronic blood loss chronic March 13, 2025 1:46pm Anemia noneactive March 13, 2025 1:46pm Chronic kidney disease, stage 3b acute March 29, 2025 11:00am Type 2 diabetes mellitus acute March 29, 2025 11:00am Ulcer of left foot with fat layer exposed acute March 29, 2025 11:00am Ulcer of right foot with fat layer exposed acute March 29, 2025 11:00am Ulcer of right lower extremity with fat layer exposed acute March 29, 2025 11:00am PAD (peripheral artery disease) chronic March 29, 2025 11:00am PAF (paroxysmal atrial fibrillation) March 29, 2025 11:00am [facility] Work Phone: [phone] Evaluation note* Diagnosis Onset Date Resolution Status Admit Date Chronic kidney disease, stage 3b acute January 07, 2025 4 :29pm MONIQUE (acute kidney injury) inactive January 07, 2025 4:29pm CHF exacerbation inactive January 4:29pm Acute mesenteric insufficiency acute February 05, 2025 8:53am Chronic kidney disease, stage 3b acute February 05, 2025 8:53am Pacemaker acute February 05 8:53am Presence of Watchman left atrial appendage closure device acute February 05, 2025 8:53am Pulmonary hypertension acute 2024 8:53am H/O aortic valve replacement chronic February 05, 2025 8:53am HTN (hypertension) chronic February 05, 2025 8:53am PAF (paroxysmal atrial fibrillation) February 05, 2025 8:53am Cardiac arrhythmia acute February 08, 2025 9:56am Pacemaker acute February 08 9:56am Presence of Watchman left atrial appendage closure device acute February 08, 2025 9:56am Chronic kidney disease, stage 3b acute March 01 8:49am Type 2 diabetes mellitus acute March 01, 2025 8:49am Ulcer of left foot with fat layer exposed acute March 01 8:49am Ulcer of right foot with fat layer exposed acute March 01 8:49am Ulcer of right lower extremity with fat layer exposed acute March 01 8:49am PAD (peripheral artery disease) chronic March 01 8:49am PAF (paroxysmal atrial fibrillation) chronic March 01 8:49am Anemia of chronic renal failure, stage 3 (moderate) chronic Mar 1:46pm Iron deficiency anemia due to chronic blood loss chronic March 13, 2025 1:46pm Anemia noneactive March 13, 2025 1:46pm Chronic kidney disease, stage 3b acute March 29, 2025 11:00am Type 2 diabetes mellitus acute March 29, 2025 11:00am Ulcer of left foot with fat layer exposed acute March 29, 2025 11:00am Ulcer of right foot with fat layer exposed acute March 29, 2025 11:00am Ulcer of right lower extremity with fat layer exposed acute March 29, 2025 11:00am PAD (peripheral artery disease) chronic March 29, 2025 11:00am PAF (paroxysmal atrial fibrillation) chronic March 29, 2025 11:00am Chronic kidney disease, stage 3b acute April 05 10:53am Type 2 diabetes mellitus acute April 05, 2025 10:53am Ulcer of left foot with fat layer exposed acute April 05 10:53am Ulcer of left lower extremity with fat layer exposed acute April 05 10:53am Ulcer of right foot with fat layer exposed acute April 05 10:53am Ulcer of right lower extremity with fat layer exposed acute April 05 10:53am PAD (peripheral artery disease) chronic April 05 10:53am PAF (paroxysmal atrial fibrillation) chronic April 05 10:53am [facility] Work Phone: 1([phone]) 978-507107-06-2025 Discharge summary [facility] Medical Records Department [address] [place] [address] Emergency Department Summary 01/07/25 MR#: [id number] Acct: [id number] Name: TAMERA SANCHESRA RUBIN Rep #:[id number] : 1945 79 From: Sheree KING PCP: JARROD Cantu Status:ADM I N Location: [place] [address] HPI History of Present Illness Chief Complaint: [...] September 2023 she had surgery in [place] for some type of intra-abdominal artery blockage and was started on Plavix in addition to her baseline aspirin 81 mg. She states she was also having issues with her congestive heart failure. She came home atthe end of October and has been taking her normal Lasix 40 mg twice daily and spironolactone 12.5 mg t wice daily without improvement. She saw her [facility] sales property manager Dr. Burdick on January 01. He changed [...] from allergies but no significant cough. [facility] Medical History (Updated 01/07/25 @ 17:04 [...] dose of Lasix as instructed by her sales property manager without improvement. She is awake alertno distress. [...] heart failure. 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 She was hospitalized for 23days. She is followed by sales property manager through the [facility]. She statesshe has difficulty contacting him and seeing him. She was offered option to follow-up with sales property manager in [place]. Patient denies fever, chills night sweats. Patient [...] % (Auto) 59.8 Lymph % (Auto) 24.2 [place] % (Auto) 12.9 H Eos % (Auto) [...] Hr 68 H* [place] [address] H Radiography Diagnostic Testing: Clinical Impression(s) from Imaging Studies Chest X-Ray 01/07/25 13:19 IMPRESSION: Findings consistent with mild congestive heart failure. Reading Location: [id number] ED attending interpretation of 2 view chest [...] dose of Lasix as instructed by her sales property manager without improvement. She is awake alertno distress. [...] heart failure. 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 She was hospitalized for 23days. She is followed by sales property manager through the [facility]. She statesshe has difficulty contacting him and seeing him. She was offered option to follow-up with sales property manager in [place]. Patient denies fever, chills night sweats. Patient [...] % (Auto) 59.8 Lymph % (Auto) 24.2 [place] % (Auto) 12.9 H Eos % (Auto) [...] Hr 68 H* [place] [address] H Radiography Diagnostic Testing: Clinical Impression(s) from Imaging Studies Chest X-Ray 01/07/25 13:19 IMPRESSION: Findings consistent with mild congestive heart failure. Reading Location: [facility] Management Discussion w/another healthcare provider: Hospitalist (Documented [...] your Primary Care Provider. Call [facility] ([phone]) or report tothe closest Emergency Room. Call 911 if necessary. 01/07/25 1648 Cosigner Signature (if applicable): 01/07/25 1704 CC: JARROD Collazo ~ Signed [facility]07-06-2025 History and physical note [facility] Medical Records Department [address] [place] [address] H&P Exam - Hospitalist 01/07/25 1626 MR#: [id number] Acct: [id number] Name: BERTA SANCHES Rep #:[id number] : [...] post Watchman device, congestive heart failure presented [facility] 01/07/2025 with several weeks of shortness of breath and bilateral lower extremity edema. Reportedly in September 2023 she had surgery in [place] for some kind of intra-abdominal artery blockageand was placed on Plavix and aspirin and was having difficulties with her heart failure at that time. She came home at the end of October and has been taking herLasix 40 twice daily and spironolactone 12.5 mg twice daily without improvement. She recently followed with her [facility] sales property manager with increase in her Lasix by mouth but has not had improvement. Patient is having somewhat shortness of breath on exertion that she is having difficulty with her ADLs and notes her legs feel so tight and swollen that she has difficulty bending over tochange her close/completing ADLs. In the ED fbhaphdrjcz57.7, heart rate 78 with blood pressure 135/57, [...] the past couple weeks to the point thatshe is having difficulty with her ADLs now, increased Lasix on an outpatient basis did not improve,has a little bit of a chronic cough from drainage but denies any fevers, no chest pain, no bowel or bladder changes. ROS otherwise negative [facility] Medical History Anxiety Brain aneurysm Bronchospasm with [...] % (Auto) 59.8, Lymph % (Auto) 24.2, [place] % (Auto) 12.9 H, Eos % (Auto) [...] Sens 71 H*, [place] [address] H 01/07/25 14:54: Troponin T Hi Sens 2 Hr 68 H* Imaging Radiology Impression Chest X-Ray 01/07/25 13:19 IMPRESSION: Findings consistent with mild congestive heart failure. Reading Location: [id number] Assessment & Plan Assessment/Plan (1) CHF exacerbation: [...] Heller MD Charges/Coding Visit Charges Inpatient E&M: 62957 Init Hosp L2 01/07/25 1635 Cosigner Signature (if applicable): CC: JARROD Collazo; Dr. Radha Heller MD~ Signed [facility]07-06-2025 Radiology Diagnostic study note [facility] Imaging Services [address] [place], [place] [address] Chest PA and Lateral MR#: [id number] Acct: [id number] Name: BERTA SANCHES Rep #: [id number] : 1945 F 79 From: Nahum Trinidad MD PCP: JARROD Cantu Status: REG E R Study:Chest PA and Lateral Date of Exam: 01/07/25 Exam# [id number] Ordering Dr: Sheree Haynes PROCEDURE: CHEST PA [...] with mild congestive heart failure. Reading Location: [id number] CC: JARROD Collazo; FERNANDO Uriostegui ~ Holistic Nutritionist: Signed [facility] Work Phone: 1(824) 832-249407-06-2025 Discharge summary Author Sheree Simmons [facility] Note Date/Time January 07, 2025 5:04p m [facility] Medical Records Department [address] [place] [address] Emergency Department Summary 01/07/25 MR#: [id number] Acct: [id number] Name: BERTA SANCHES Rep #:[id number] : 1945 79 From: Sheree KING PCP: JARROD Cantu Status:ADM I N Location: [place] [address] HPI <FERNANDO Uriostegui - Last Filed: 01/07/25 [...] September 2023 she had surgery in [place] for some type of intra-abdominal artery blockage and was started on Plavix in addition to her baseline aspirin 81 mg. She states she was also having issues with her congestive heart failure. She came home at the end of October and has been taking her normal Lasix 40 mg twice daily and spironolactone 12.5 mg twice daily without improvement. She saw her [facility] clinic sales property manager Dr. Burdick on January 01. He changed [...] is from allergies but no significant cough. PFSH <FERNANDO Uriostegui - Last Filed: 01/07/25 16:48> [facility] Medical History (Updated 01/07/25 @ 17:04 by [...] Oxygen Delivery Method Room Air Room Air [facility] <FERNANDO Uriostegui - Last Filed: 01/07/25 16:48> [facility] Narrative Medical decision making narrative: History [...] dose of Lasix as instructed by her sales property manager without improvement. She is awake alertno distress. [...] heart failure. 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 She was hospitalized for 23days. She is followed by sales property manager through the [facility]. She statesshe has difficulty contacting him and seeing him. She was offered option to follow-up with sales property manager in [place]. Patient denies fever, chills night sweats. Patient [...] % (Auto) 59.8 Lymph % (Auto) 24.2 [place] % (Auto) 12.9 H Eos % (Auto) [...] Hr 68 H* [place] [address] H Radiography Diagnostic Testing: Clinical Impression(s) from Imaging Studies Chest X-Ray 01/07/25 13:19 IMPRESSION: Findings consistent with mild congestive heart failure. Reading Location: [id number] ED attending interpretation of 2 view chest x-ray shows mild congestive heart failure. EKG Initial EKG: Attestation: I personally reviewed and interpreted this EKG as follows: Interpretation: No Acute Injury Pattern and Atrial Fibrillation Comments: Atrial fibrillation at 77 bpm, occasional ventricular paced complexes Left anterior fascicular block Nonspecific ST changes, no STEMI <Dr. Luis Armando Harry MD - Last Filed: 01/07/25 17:04> [facility] MDM Narrative Medical decision making narrative: History gathered from: Patient and spouse 79-year-old female presents with several weeks of dyspnea and bilateral lower extremity edema. She has had tight swelling from both thighs and down for several weeks. Over the last 5 days she has been taking an increased dose of Lasix as instructed by her sales property manager without improvement. She is awake alertno distress. [...] heart failure. 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 She was hospitalized for 23days. She is followed by sales property manager through the [facility]. She statesshe has difficulty contacting him and seeing him. She was offered option to follow-up with sales property manager in [place]. Patient denies fever, chills night sweats. Patient [...] % (Auto) 59.8 Lymph % (Auto) 24.2 [place] % (Auto) 12.9 H Eos % (Auto) [...] Hr 68 H* [place] [address] H Radiography Diagnostic Testing: Clinical Impression(s) from Imaging Studies Chest X-Ray 01/07/25 13:19 IMPRESSION: Findings consistent with mild congestive heart failure. Reading Location: [facility] Management Discussion w/another healthcare provider: Hospitalist (Documented [...] your Primary Care Provider. Call [facility] ([phone]) or report to the closest Emergency Room. Call 911 if necessary. 01/07/25 1648 <Electronically signed by Sheree KING> Cosigner Signature (if applicable): 01/07/25 1704 <Electronically signed by Romel UGARTE> CC: JARROD Collazo ~ Signed [facility] Work Phone: 1(232) 444-734906-30-2025 Instructions* Patient Instructions* Carla Burdick MD - 01/01/2025 11:12 AM EDT I have written you for lasix 40 mg pills Take two in the morning (80 mg) and one (40 mg) in the afternoon for this week Wed-Wednesday Repeat blood work next wednesday documented in this encounterUc Health06-30-2025 History of Present illness Narrative* Carla Burdick MD - 01/01/2025 11:00 AM EDT Images from the original note were not included. [facility] SECTION OF REGIONAL CARDIOLOGY Cardiology ([facility]) [address] [facility] [id number] OUTPATIENT VISIT DATE 01/01/2025 PRIMARY CARE PHYSICIAN: Gerard Le [address] [place] [address] HISTORY OF PRESENT ILLNESS: Ms. Sanches is a 79 year old woman with a history of remote aortic valve replacement with homograft in 1996 and possible repair of the ascending aorta, chronic diastolic congestive heart failure, hypertension, dyslipidemia, atrial fibrillation with history of pulmonary vein isolation procedures, pacemaker placement and watchman procedure who presents for follow-up. Patient was admitted to [facility]. She was discharged after 2 days. She [...] (HCC) Pedro aneurysm of anterior communicating artery ([facility]) Dr. 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 Lua PACEMAKER 10/2019 PART. HYSTERECTOMY W/WO RMVL OVARIES/TUBES 1974 h/o cervical cancer ovaries remain PAST SURGICAL HISTORY OF 1996 Aortic valve repair, Dr. Apodaca PAST SURGICAL HISTORY OF 2001 [address] Beltrán, [facility] PAST SURGICAL HISTORY OF 2016 clipping [...] MEDICINE TESTING: Right Heart Catheterization [facility] 10/24/2024: Cardiac output (Qs) !4.1L/min ! + + + !Cardiac index !2.42L/(min-m^2) ! + + + !HR, R-R, stroke volume !92bpm, 45ml ! + + + !RA pressure a/v (m) ! (23) ! + + + !PA pressure s/d (m) !/28 (51) ! + + + !PA wedge a/v (m) !/ (23) ! + + + !Aortic pressure s/d (m) !163/81 (108) ! + + + !SVR !1650dyn-sec/cm5 ! + + + !SVRI !0756xen-tmm-p^2/cm5 ! + + + !PVR !544dyn-sec/cm5 ! + + + !PVRI !022ipd-qwu-r^2/cm5 ! + + + !Total systemic resistance!2097dyn-sec/cm5, 3957udx-xwv-e^2/cm5! Echocardiogram [facility] 10/03/2024: 1. Left ventricle: [...] or suggestive of Atrial Fibrillation * AT/AF [place]pe[place]: 67.8% * Total number of events: 2774 Tachycardia: AF w/RVR * Stored EGMs listed as NSVT AND SVT are consistent with or suggestive of Atrial Fibrillation with Rapid Ventricular Response * AT/AF [place]: 67.8% * Total episodes: 9 * Longest [...] testing. She underwent SMA stent placement at [facility] September 2024. She has been treated for [...] daily. Carla Burdick MD documented in this encounterUc Health06-30-2025 NoteHNO ID: [id number] Author: CARLA BURDICK MD Service: ? Author Type: Physician Type: Progress Notes Filed: 01/01/2025 12:27 Note Text: [facility] SECTION OF REGIONAL CARDIOLOGY Cardiology ([facility]) [address] [facility] [id number] OUTPATIENT VISIT DATE 01/01/2025 PRIMARY CARE PHYSICIAN: Gerard Le [address] [place] [address] HISTORY OF PRESENT ILLNESS: Ms. Sanches is a 79 year old woman with a history of remote aortic valve replacement with homograft in 1996 and possible repair of the ascending aorta, chronic diastolic congestive heart failure, hypertension, dyslipidemia, atrial fibrillation with history of pulmonary vein isolation procedures, pacemaker placement and watchman procedure who presents for follow-up. Patient was admitted to [facility]. She was discharged after 2 days. 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 Lua PACEMAKER 10/2019 PART. HYSTERECTOMY W/WO RMVL OVARIES/TUBES 1974 h/o cervical cancer ovaries remain PAST SURGICAL HISTORY OF 1996 Aortic valve repair, Dr. Apodaca PAST SURGICAL HISTORY OF 2001 [address] Beltrán, [facility] PAST SURGICAL HISTORY OF 2015 clipping [...] mg iron) tabl (more content not included)... [facility]06-24-2025 Telephone encounter Note* Telephone Encounter - Albin Gu APRN.JASPREET - 12/26/2024 9:44 AM EDT Patient called [...] answered at this time. Albin Gu APRN.CNP [facility]06-24-2025 Miscellaneous Notes* Telephone Encounter - Albin Gu [...] time. Albin Gu APRN.CNP documented in this encounterUc Health06-18-2025 NoteHNO ID: [id number] Author: LARS SILVA, DO Service: ? Author Type: Physician Type: Progress Notes Filed: 12/20/2024 17:56 Note Text: Heart , Vascular [facility] [place] DEPARTMENT OF VASCULAR SURGERY OUTPATIENT VISIT DATE [...] in September. She was recently admitted to [place] for anemia. She has noted increased swelling. 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 Lua PACEMAKER 10/2019 PART. HYSTERECTOMY W/WO RMVL OVARIES/TUBES 1973 h/o cervical cancer ovaries remain PAST SURGICAL HISTORY OF 1996 Aortic valve repair, Dr. Apodaca PAST SURGICAL HISTORY OF 2001 [address] Beltrán, [facility] PAST SURGICAL HISTORY OF 2015 clipping [...] after administration during watchman procedure on 01/12/22, sheila (more content not included)...[facility]06-18-2025 History of Present illness Narrative* Lars Silva, DO - 12/20/2024 8:53 AM EDT Images from the original note were not included. [facility] [place] DEPARTMENT OF VASCULAR SURGERY OUTPATIENT VISIT DATE [...] in September. She was recently admitted to [place] for anemia. She has noted increased swelling. 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 Lua PACEMAKER 10/2019 PART. HYSTERECTOMY W/WO RMVL OVARIES/TUBES 1974 h/o cervical cancer ovaries remain PAST SURGICAL HISTORY OF 1996 Aortic valve repair, Dr. Apodaca PAST SURGICAL HISTORY OF 2001 [address] Beltrán, [facility] PAST SURGICAL HISTORY OF 2015 clipping [...] 2024 TIME: 8:53 AM documented in this encounterUc Health06-17-2025 NoteHNO ID: [id number] Author: GWEN VALENTINE RN Service: ? Author [...] bleeding or swelling noted. Pt tolerated well. [id number] History of Present illness Narrative* Gwen Valentine [...] note were not included. [facility] [place] [facility] Heart Failure Clinic OUTPATIENT VISIT DATE December [...] feeling fluid overloaded and was worried about [place] to [place] in a [place] days. Discussed with her taking lasix as it was prescribed. As her spironolactone was stopped, did advise patient restart this at 25 mg once a day for four days only. She was instructed to call office in a week to review symptoms. On 10/15, patient presented back to [facility] for gastrointestinal bleed. She had a colonoscopy [...] and entresto. The patient wished to leave [place] so she could return to [place]. Cardiology and Pulmonary agreed with discharge. 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 Lua PACEMAKER 10/2019 PART. HYSTERECTOMY W/WO RMVL OVARIES/TUBES 1973 h/o cervical cancer ovaries remain PAST SURGICAL HISTORY OF 1996 Aortic valve repair, Dr. Apodaca PAST SURGICAL HISTORY OF 2001 [address] Beltrán, [facility] PAST SURGICAL HISTORY OF 2015 clipping [...] impression and interpretation as noted. Federico Hammonds [id number] DEVICE CHECK 10/04/2024: Tachycardia: AF * Stored EGMs are consistent with or suggestive of Atrial Fibrillation * AT/AF [place]: 67.8% * Total number of events: 2774 Tachycardia: AF w/RVR * Stored EGMs listed as NSVT AND SVT are consistent with or suggestive of Atrial Fibrillation with Rapid Ventricular Response * AT/AF [place]: 67.8% * Total episodes: 9 * Longest episode: 28 SECS * Fastest episode:207 BPM Remote Device Evaluation [employer] FROM [facility] * Device type: DUAL LEAD PACEMAKER * Presenting Rhythm: AF/ VS * Battery Status: Battery is at OK, 9.83 yrs . * Atrial Arrhythmias: There have been 12 atrial detections. Anticoagulants listed: _LAAC____ * Ventricular Arrhythmias: There have been __0 TRUE_ ventricular detections. * Lead Measurements: Capture thresholds, sensing, and lead impedances are appropriate. * Other Diagnostics: AP 64.4 WATER TREATMENT SPECIALIST 9.3% Tachycardia: AF * Stored EGMs are consistent with or suggestive of Atrial Fibrillation * AT/AF Maypearl: 8.2% (THIS PERCENT IS INACCCURATE,LIKELY CLOSER TO [...] Discussed red flags and when to call MD/OCC MED PHYSICIAN or [facility]. Medications reconciled at end of visit: yes I spent 40 minutes in this visit, with more than 50% of the time devoted to patient counseling. Recording using [employer] software for draft documentation was discussed with patient/authorized sales representative electric service. All questions were welcome and answered. Patient/authorized sales representative electric service agreed toproceed. SIGNATURE: Albin Gu APRN.CNP PATIENT NAME: Berta Sanches DATE: December 19, 2024 TIME: 1100 documented in this encounterUc Health06-17-2025 NoteHNO ID: [id number] Author: ALBIN GU APRN.CNP Service: ? Author Type: Nurse Practitioner Type: Progress Notes Filed: 12/19/2024 11:45 Note Text: Heart [facility] [place] [facility] Heart Failure Clinic OUTPATIENT VISIT DATE December [...] and was worried about traveling home to [place] in a few days. Discussed with her taking lasix as it was prescribed. As her spironolactone was stopped, did advise patient restart this at 25 mg once a day for four days only. She was instructed to call office in a week to review symptoms. On 10/15, patient presented back to [facility] for gastrointestinal bleed. She had a colonoscopy [...] and entresto. The patient wished to leave [place] so she could return to [place]. Cardiology and Pulmonary agreed with discharge. Patient [...] monitoring her sodium intake (more content not included)...[facility] [id number] Instructions* Patient Instructions* Albin Gu APRN.JASPREET - [...] or concern, you can call me at [phone]. documented in this encounterUc Health06-11-2025 Telephone encounter Note * Telephone Encounter - Alxe Gonzalez - 12/13/2024 9:28 AM EDT Transitional Care Management (TCM) [facility] Monitoring Program Provider Action / FYI: N/A SUMMARY: Outreach type: INITIAL OUTREACH Discharge Network Status: In-Network Discharge Source of Patient: [facility] TCM Discharge Report Patient discharged from [place] on December 12. Admitted for Acute on chronic diastolic CHF (congestive heart failure) (HCC). Contact made with patient: No - next outreach attempt will be on next business day. Alex Betancourt December 13, 2024 9:35 AM [facility]06-11-2025 Miscellaneous Notes* Telephone Encounter - Alex Gonzalez - 12/13/2024 9:28 AM EDT Transitional Care Management (TCM) [facility] Monitoring [facility] Provider Action / FYI: N/A SUMMARY: Outreach type: INITIAL OUTREACH Discharge Network Status: In-Network Discharge Source of Patient: [facility] TCM Discharge Report Patient discharged from [place] on December 12. Admitted for Acute on chronic diastolic CHF (congestive heart failure) (HCC). Contact made with patient: No - next outreach attempt will be on next business day. Alex Betancourt December 13, 2024 9:35 AM documented in this encounterUc Health06-10-2025 NoteHNO ID: [id number] Author: STACIE LONDONO RN Service: Care Management [...] Care Physician Primary Care Physician Name/Phone: Deysi Collazo APRN.CNP [phone] Additional Information: na Discharge order written for today, patient discharged home with no services. Family will transport. SIGNATURE: Stacie Londono RN PATIENT NAME: Berta Sanches DATE: December 12, 2024 TIME: 9:13 [id number] Telephone encounter Note* Telephone Encounter - Deysi Collazo APRN.CNP - 12/11/2024 1:06 PM EDT Noted. Deysi Collazo APRN.CNP [facility]06-09-2025 Miscellaneous Notes* Telephone Encounter - Deysi Collazo APRN.CNP - 12/11/2024 1:06 PM EDT Noted. Deysi Collazo APRN.CNP * Telephone Encounter - Sigifredo Rivera LPN - 12/11/2024 11:15 AM EDT Pt re admitted to [facility]. Sigifredo Rivera LPN * Telephone Encounter - Marilyn Cesar - 12/11/2024 11:05 AM EDT Patient called to cancel hospital follow up due to re admission yesterday 12/10/2024 documented in this encounterUc Health06-09-2025 NoteHNO ID: [id number] Author: MAXIMINO JENNINGS RN Service: Care Management Author Type: Registered Nurse Type: Care Mgt Initial Assessment Filed: 12/11/2024 11:51 Note Text: CARE MANAGEMENT: ASSESSMENT AND DISCHARGE PLAN SERVICE DATE: December 11, 2024 SERVICE TIME: 11:50 AM PCP: Deysi Collazo APRN.CNP Primary Contact: Extended Emergency Contact Information Primary Emergency Contact: Natanael Sanches Address: [address] [place] [address] Mobile Relation: Spouse Admission Status: Inpatient Insurance Provider: [employer] MED[employer]ARE PPO Discharge Planning requested by: Per Department Practice Potential Transition Plans Home Advance Directives Current Advance Directive: Living Will, Health Care Power of Planer Stone In Chart: No Current Living Arrangements and [...] None Discharge Planning Patient Goal(s): General wellness [place] Explained: [place] of [place] Given: No Reason Not Given: No placements necessary Are you interested in bedside delivery of your medications? No, [facility] in [place] Discharge Planning Participant(s): Patient Patient/Family Comments: Caregiver [...] assessment. Patient from home with her , I-FIELD CLERK, drives minimally. to transport upon DC. CM assigned will continue to follow for DC planning needs. 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 Patient [...] Diego Knowles MD DATE: 12/11/2024 TIME: 11:47 AMSelect [facility] [id number] Telephone encounter Note* Telephone Encounter - Sigifredo Rivera LPN - 12/11/2024 11:15 AM EDT Pt re admitted to [facility]. Sigifredo Rivera LPN [facility]06-09-2025 Telephone encounter Note* Telephone Encounter - Marilyn Cesar - 12/11/2024 11:05 AM EDT Patient called to cancel hospital follow up due to re admission yesterday 12/10/2024 [facility]05-19-2025 History of Present illness Narrative* Carla Burdick MD - 11/20/2024 8:00 AM EDT Images from the original note were not included. HEART AND VASCULAR INSTITUTE SECTION OF [facility] CARDIOLOGY Cardiology ([facility]) [address] [facility] [id number] OUTPATIENT VISIT DATE PRIMARY CARE PHYSICIAN: Gerard Le [address] [place] [address] HISTORY OF PRESENT ILLNESS: Ms. 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 Lua PACEMAKER 10/2019 PART. HYSTERECTOMY W/WO RMVL OVARIES/TUBES 1973 h/o cervical cancer ovaries remain PAST SURGICAL HISTORY OF 1996 Aortic valve repair, Dr. Apodaca PAST SURGICAL HISTORY OF 2001 [address] Beltrán, [facility] [facility] PAST SURGICAL HISTORY OF 2015 clipping [...] palpate. CARDIOVASCULAR MEDICINE TESTING: Right Heart Catheterization [facility] 10/24/2024: Cardiac output (Qs) !4.1L/min ! [...] !SVR !1650dyn-sec/cm5 ! + + + !SVRI !6407fnm-nmx-o^2/cm5 ! + + + !PVR !544dyn-sec/cm5 ! + + + !PVRI !250xxg-olt-n^2/cm5 ! + + + !Total systemic resistance!2097dyn-sec/cm5, 5761fqa-fiq-b^2/cm5! Echocardiogram [facility] 10/03/2024: 1. Left ventricle: The cavity [...] or suggestive of Atrial Fibrillation * AT/AF [place]: 67.8% * Total number of events: 2774 Tachycardia: AF w/RVR * Stored EGMs listed as NSVT AND SVT are consistent with or suggestive of Atrial Fibrillation with Rapid Ventricular Response * AT/AF [place]: 67.8% * Total episodes: 9 * Longest [...] testing. She underwent SMA stent placement at [facility] September 2024. She has been treated for [...] TABLET Carla Burdick MD documented in this encounterUc Health05-19-2025 NoteHNO ID: [id number] Author: CARLA BURDICK MD Service: ? Author Type: Physician Type: Progress Notes Filed: 11/20/2024 08:50 Note Text: [facility] SECTION OF REGIONAL CARDIOLOGY Cardiology ([facility]) [address] [facility] [address] OUTPATIENT VISIT DATE PRIMARY CARE PHYSICIAN: Gerard Le [address] [place] [address] HISTORY OF PRESENT ILLNESS: Ms. Sanches is [...] (HCC) Pedro aneurysm of anterior communicating artery ([facility]) Dr. Aaron [facility] Bilateral carotid artery stenosis 11/26/2016 05/27/16 moderate 50-69% stenosis right and left Bilateral pneumonia 07/20/2015 Cancer of cervix (HCC) Cervical cancer (HCC) 1973 Chest pain 06/01/2015 negative work up with nuclar stress CHF (congestive heart failure) ([facility]) Cholesteatoma of right ear surgical removal Chronic mastoiditis of left side Chronic renal failure, stage 3b ([facility]) 04/15/2022 Diabetes (HCC) Diabetes (HCC) GERD (gastroesophageal 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 Lua PACEMAKER 10/2019 PART. HYSTERECTOMY W/WO RMVL OVARIES/TUBES 1974 h/o cervical cancer ovaries remain PAST SURGICAL HISTORY OF 1996 Aortic valve repair, Dr. Apodaca PAST SURGICAL HISTORY OF 2001 [address] Beltrán, [facility] PAST SURGICAL HISTORY OF 2015 clipping [...] tablet by mouth t (more content not included)...[facility]05-14-2025 Telephone encounter Note* Telephone Encounter - Mckenzie Rodriguez MA - 11/15/2024 3:39 PM EDT Scheduled. Mckenzie Rodriguez MA [facility]05-14-2025 Miscellaneous Notes* Telephone Encounter - Mckenzie Rodriguez [...] metabolic panel and BNP. documented in this encounterUc Health05-14-2025 Telephone encounter Note * Telephone Encounter - [...] repeat a basic metabolic panel and BNP. [facility]05-05-2025 Instructions* Patient Instructions* Carla Burdick MD - 11/06/2024 3:33 PM EDT We are changing the Furosemide to Torsemide 20 mg two times per day Stop taking the Losartan documented in this encounterUc Health05-05-2025 History of Present illness Narrative* Carla Burdick MD - 11/06/2024 2:40 PM EDT Images from the original note were not included. [facility] SECTION OF REGIONAL CARDIOLOGY Cardiology ([facility]) [address] [facility] [id number] OUTPATIENT VISIT DATE 11/06/2024 PRIMARY CARE PHYSICIAN: Gerrad Le [address] [place] [address] HISTORY OF PRESENT ILLNESS: Ms. 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 Lua PACEMAKER 10/2019 PART. HYSTERECTOMY W/WO RMVL OVARIES/TUBES 1974 h/o cervical cancer ovaries remain PAST SURGICAL HISTORY OF 1996 Aortic valve repair, Dr. Apodaca PAST SURGICAL HISTORY OF 2001 [address] Beltrán, [facility] PAST SURGICAL HISTORY OF 2015 clipping [...] palpate. CARDIOVASCULAR MEDICINE TESTING: Right Heart Catheterization [facility] 10/24/2024: Cardiac output (Qs) !4.1L/min ! [...] !SVR !1650dyn-sec/cm5 ! + + + !SVRI !0439rdf-rze-a^2/cm5 ! + + + !PVR !544dyn-sec/cm5 ! + + + !PVRI !080lov-bxs-o^2/cm5 ! + + + !Total systemic resistance!2097dyn-sec/cm5, 0706dvn-oka-z^2/cm5! Echocardiogram [facility] 10/03/2024: 1. Left ventricle: The cavity size [...] or suggestive of Atrial Fibrillation * AT/AF [place]: 67.8% * Total number of events: 2774 Tachycardia: AF w/RVR * Stored EGMs listed as NSVT AND SVT are consistent with or suggestive of Atrial Fibrillation with Rapid Ventricular Response * AT/AF [place]: 67.8% * Total episodes: 9 * Longest [...] testing. She underwent SMA stent placement at [facility] September 2024. She has been treated for [...] I65.23 Carla Burdick MD documented in this encounterUc Health05-05-2025 NoteHNO ID: [id number] Author: CARLA BURDICK MD Service: ? Author Type: Physician Type: Progress Notes Filed: 11/06/2024 17:01 Note Text: [facility] SECTION OF REGIONAL CARDIOLOGY Cardiology ([facility]) [address] [facility] [id number] OUTPATIENT VISIT DATE 11/06/2024 PRIMARY CARE PHYSICIAN: Gerard Le [address] [place] [address] HISTORY OF PRESENT ILLNESS: Ms. 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 Lua PACEMAKER 10/2019 PART. HYSTERECTOMY W/WO RMVL OVARIES/TUBES 1974 h/o cervical cancer ovaries remain PAST SURGICAL HISTORY OF 1996 Aortic valve repair, Dr. Apodaca PAST SURGICAL HISTORY OF 2001 [address] Beltrán, [facility] PAST SURGICAL HISTORY OF 2016 clipping [...] Hypotension MEDICATIONS: clopidogrel (PLAVIX) (more content not included)...[facility] 11-03-2024 Telephone encounter Note* Telephone Encounter - Deysi Collazo APRN.CNP - 11/03/2024 4:29 PM EDT Looks like patient was seen today at heart failure clinic and had repeat labs. From notes, it lookslike patient continued to refuse ER. She has an appt w/ cardiology on Wednesday and is to repeat labs at that time. [facility]05-02-[facility] Miscellaneous Notes* Telephone Encounter - Deysi Collazo [...] the ER. stated the "kidney doctor" at [facility] said her levels are not life [...] patient in to the "heart center" at [facility] today for the IVF. He said they [...] and Laboratory monitoring.Patient was not d/c'd from [facility], she left AMA. MONIQUE can cause supervisor long goods damage and if uncorrected patient could end [...] proceed to ER immediately. documented in this encounterUc Health05-02-2025 Telephone encounter Note * Telephone Encounter - [...] with plan of care. Albin Gu APRN.CNP [facility]05-02-2025 Miscellaneous Notes* Telephone Encounter - Albin Gu [...] agree with plan of care. Albin Gu APRN.JASPREET documented in this encounterUc Health05-02-2025 History of Present illness Narrative* Gwen Valentine [...] tolerated well. * Albin Gu APRN.JASPREET - 11/03/2024 9:00 AM EDT Images from the original note were not included. [facility] [place] [facility] Heart Failure Clinic OUTPATIENT VISIT DATE November [...] feeling fluid overloaded and was [facility] [place] in a few days. Discussed with her taking lasix as it was prescribed. As her spironolactone was stopped, did advise patient restart this at 25 mg once a day for four days only. She was instructed to call office in a week to review symptoms. On 10/15, patient presented back to [facility] for gastrointestinal bleed. She had a colonoscopy [...] and entresto. The patient wished to leave [place] so she could return to [place]. Cardiology and Pulmonary agreed with discharge. Today, [...] asparagus and s alad. While in [place], she was very conscious about her diet. She weighed every day. She feels after thefirst hospitalization, she gained approx 20 lbs which she did call and discuss this with this HF ATHLETIC AGENT. Wearing lidocaine patch over site to right side of neck as she mentions having a temporary dialysisport in place during first hospitalization. This area was bothersome to her however, she does mention the discomfort is improving. Does not have a linen grader at this time. 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 Lua PACEMAKER 10/2019 PART. HYSTERECTOMY W/WO RMVL OVARIES/TUBES 1973 h/o cervical cancer ovaries remain PAST SURGICAL HISTORY OF 1996 Aortic valve repair, Dr. Apodaca PAST SURGICAL HISTORY OF 2001 [address] Beltrán, [facility] PAST SURGICAL HISTORY OF 2015 clipping [...] (H): Data is abnormally high [facility] 10/04/2024: Study Conclusions 1. Left ventricle: The [...] impression and interpretation as noted. Federico Hammonds [id number] I have personally reviewed the Laboratory Testing and Echocardiogram. COUNSELING: We discussed the following non-pharmacological measures during this visit: Smoking and alcohol abstinence/cessation, if applicable Dietary and medication compliance Monitoring daily weights and blood pressures Exercise regimen When to call our office Heart Failure Education Booklet: Previously given. Discussed red flags and when to call MD/OCC MED PHYSICIAN or [facility] ED. Medications reconciled at end of visit: yes I spent 60 minutes in this visit, with more than 50% of the time devoted to patient counseling. SIGNATURE: Albin Gu APRN.CNP PATIENT NAME: Berta Sanches DATE: November 03, 2024 TIME: 0855 documented in this encounterUc Health05-02-2025 NoteHNO ID: [id number] Author: GWEN VALENTINE RN Service: ? Author [...] No bleeding, no swelling noted. Pt tolerated well.[id number] NoteHNO ID: [id number] Author: ALBIN GU APRN.JASPREET Service: ? Author Type: Nurse Practitioner Type: Progress Notes Filed: 11/03/2024 10:28 Note Text: [facility] [place] [facility] Heart Failure Clinic OUTPATIENT VISIT DATE November [...] and was worried about traveling home to [place] in a few days. Discussed with her taking lasix as it was prescribed. As her spironolactone was stopped, did advise patient restart this at 25 mg once a day for four days only. She was instructed to call office in a week to review symptoms. On 10/15, patient presented back to [facility] for gastrointestinal bleed. She had a colonoscopy [...] and entresto. The patient wished to leave [place] so she could return to [place]. Cardiology and Pulmonary agreed with discharge. Today, [...] call and discuss this with this HF ATHLETIC AGENT. Wearing lidocaine patch over site to right side of neck as she mentions having a temporary dialysis port in place during first hospitalization. This area was bothersome to her however, she does mention the discomfort is improving. Does not have a linen grader at this time. Can lay flat with [...] and kidney function sug (more content not included)...[facility] [id number] Instructions* Patient Instructions* Albin Gu APRN.JASPREET - [...] or concern, you can call me at [phone]. documented in this encounterUc Health05-01-2025 Telephone encounter Note * Telephone Encounter - Quin Lama MA - 11/02/2024 9:00 AM EDT Spoke with patient's , Natanael. Patient was in background listening. Relayed message below in detail. Reiterated need for ER for IVF and lab monitoring. Both patient and spouse again declined going to the ER. stated the "kidney doctor" at [facility] said her levels are not life threatening. I reiterated that if left uncorrected patient could end up with permanent kidney damage. states "It's the Bumex that's causing it". States patient is urinating frequently which indicates to them that patients kidneys are functioning. States patients weight is stable. 145 lbs this morning. They are seeing Dr. Brudick on Wednesday11/06/24. states he is also going to try and get patient in to the "heart center" at [facility] today for the IVF. He said they [...] be ordered without appointment. Quin Lama MA [facility]04-30-2025 Telephone encounter Note* Telephone Encounter - Irma Hwang RN - 11/01/2024 1:52 PM EDT Patient scheduled for 11/06/24. Irma Hwang RN [facility]04-30-2025 Miscellaneous Notes* Telephone Encounter - Irma Hwang RN - 11/01/2024 1:52 PM EDT Patient scheduled for 11/06/24. Irma Hwang RN documented in this encounterUc Health04-29-2025 Telephone encounter Note * Telephone Encounter - Shaye Domingo APRN.CNP - 10/31/2024 4:46 PM EDT Creatinine is not improved and likely will not improve at home. Need IVF and Laboratory monitoring.[facility] was not d[facility] from [facility], she left AMA. MONIQUE can cause [...] worse and not better if not corrected. [facility]04-29-2025 Telephone encounter Note* Telephone Encounter - Radha [...] Please review and advise, Radha Pyle RN [facility]04-29-2025 Telephone encounter Note* Telephone Encounter - Shaye Domingo APRN.CNP - 10/31/2024 1:35 PM EDT Left message for patient to return call. Patient's kidney function has gotten significantly worse and she needs to proceed to ER immediately. [facility]04-29-2025 NoteHNO ID: [id number] Author: SHAYE DOMINGO APRN.JASPREET Service: ? Author Type: Nurse Practitioner Type: Progress Notes Filed: 10/31/2024 12:52 Note Text: Chief Complaint Patient presents with: Hospital F/U [facility] Berta Sanches is a 79 year old female who presents here today for Above Complaints.. Acute Mesenteric Ischemia: - Initially admitted to [facility] on 10/02/2024. - Underwent femoral ultrasound-guided angiogram with angioplasty and stenting of the SMA. - Required CRRT for MONIQUE post-op. - Developed AFib with RVR post-op. - Discharged after 23-day hospitalization. Acute on Chronic Heart Failure: - Given IV Lasix during initial admission. 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 Lua PACEMAKER 10/2019 PART. HYSTERECTOMY W/WO RMVL OVARIES/TUBES 1974 h/o cervical cancer ovaries remain PAST SURGICAL HISTORY OF 1996 Aortic valve repair, Dr. Apodaca PAST SURGICAL HISTORY OF 2001 [address] Beltrán, [facility] PAST SURGICAL HISTORY OF 2016 clipping [...] 24 hr tablet Take (more content not included)...[facility]04-29-2025 History of Present illness Narrative* Shaye Domingo, TERI.SCRAP CHARGER - 10/31/2024 11:11 AM EDT Chief Complaint Patient presents with: Hospital F/U [facility] Berta Sanches is a 79 year old female who presents here today for Above Complaints.. Acute Mesenteric Ischemia: - Initially admitted to [facility] on 10/02/2024. - Underwent femoral ultrasound-guided angiogram with angioplasty and stenting of the SMA. - Required CRRT for MONIQUE post-op. - Developed AFib with RVR post-op. - Discharged after 23-day hospitalization. Acute on Chronic Heart Failure: - Given IV Lasix during initial admission. 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 Lua PACEMAKER 10/2019 PART. HYSTERECTOMY W/WO RMVL OVARIES/TUBES 1974 h/o cervical cancer ovaries remain PAST SURGICAL HISTORY OF 1996 Aortic valve repair, Dr. Apodaca PAST SURGICAL HISTORY OF 2001 [address] Beltrán, [facility] PAST SURGICAL HISTORY OF 2015 clipping [...] CONSULT TO PHYSICAL THERAPY - CONSULT TO SOMMELIER 6. Acute on chronic diastolic congestive heart failure (HCC) - ICD9: 428.33, 428.0, ICD10: I50.33 - HFpEF 50+ - Compensated - Continue current medications - Encouraged sodium restriction - Encouraged daily weights - Call if 3 lbs gained in 1 days - Will contact Dr. Burdick's office for sooner follow up to discuss recommendations from cardiology/nephrology from [facility]. 7. Hospital discharge follow-up - ICD9: V67.59, ICD10: Z09 -23 days inpatient at [facility]. Shaye Domingo APRN.CNP documented in this encounterUc Health04-10-2025 Telephone encounter Note * Telephone Encounter - [...] answered at this time. Albin Gu APRN.CNP [facility]04-10-2025 Miscellaneous Notes* Telephone Encounter - Albin Gu [...] time. Albin Gu APRN.CNP documented in this encounterUc Health01-27-2025 Telephone encounter Note * Telephone Encounter - Melida Koo APRN.CNP - 07/31/2024 11:54 AM EST Pt called to request refill for KDur as she has run out of prescription. She states that she is currently in [place] and will be in [place] until October. [facility] called in [place], [place]. Spoke with Pharmacist on duty. Rx for KDur 10 meq PO daily given verbally #90 with no refills. Melida Koo APRN.CNP [facility] Work Phone: 1(656) 992-899001-27-2025 Miscellaneous Notes* Telephone Encounter - Melida Koo APRN.CNP - 07/31/2024 11:54 AM EST Pt called to request refill for KDur as she has run out of prescription. She states that she is currently in [place] and will be in [place] until October. [facility] called in [place], [place]. Spoke with Pharmacist on duty. Rx for KDur 10 meq PO daily given verbally #90 with no refills. Melida Koo APRN.SCRAP CHARGER documented in this encounterUc Health01-03-2025 NoteHNO ID: [id number] Author: SIGIFREDO RIVERA LPN Service: ? Author [...] membrane assessed by LIP pre and post procedureSt. Rita'S Hospital01-03-2025 NoteHNO ID: [id number] Author: DEYSI COLLAZO APRN.CNP Service: ? Author Type: Nurse Practitioner Type: Progress Notes Filed: 07/07/2024 12:41 Note Text: This is a 78 year old female who presents today with: Patient presents with: Establish Care HISTORY OF PRESENT ILLNESS: Berta Sanches is a 78 year old female. Patient presents with: Establish Care Pt presents today to [facility]. HTN: Patient is compliant with meds Yes. 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 Lua PACEMAKER 10/2019 PART. HYSTERECTOMY W/WO RMVL OVARIES/TUBES 1974 h/o cervical cancer ovaries remain PAST SURGICAL HISTORY OF 1996 Aortic valve repair, Dr. Apodaca PAST SURGICAL HISTORY OF 2001 [address] Beltrán, [facility] PAST SURGICAL HISTORY OF 2015 clipping [...] Type 2 DM - (more content not included)...[facility]10-04-[facility]24 Instructions* Patient Instructions* Albin Gu APRN.SCRAP CHARGER - 04/07/2024 9:18 AM EDT Continue current [...] or concern, you can call me at [phone]. documented in this encounterUc Health10-04-2024 History of Present illness Narrative* Albin Gu APRN.CNP - 04/07/2024 9:00 AM EDT Images from the original note were not included. [facility] [place] [facility] Heart Failure Clinic OUTPATIENT VISIT DATE April 07, 2024 OUTPATIENT VISIT TYPE ESTABLISHED PRIMARY CARE PHYSICIAN: Gerard eL PA-C CHIEF COMPLAINT: Patient presents with: Breathing [...] a boat and take it out on [place] to fish. 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 Lua PACEMAKER 10/2019 PART. HYSTERECTOMY W/WO RMVL OVARIES/TUBES 1974 h/o cervical cancer ovaries remain PAST SURGICAL HISTORY OF 1996 Aortic valve repair, Dr. Apodaca PAST SURGICAL HISTORY OF 2001 [address] and [address] Beltrán, [facility] PAST SURGICAL HISTORY OF 2016 clipping [...] * Heart Rate Histograms reviewed AP 45%, WATER TREATMENT SPECIALIST 10.4% Title: Tachycardia: AF * Stored EGMs are consistent with or suggestive of Atrial Fibrillation * AT/AF [place]: 38.7% * Total number of events: 4,598 [...] Discussed red flags and when to call MD/OCC MED PHYSICIAN or [facility] ED. Medications reconciled at end of visit: yes I spent 30 minutes in this visit, with more than 50% of the time devoted to patient counseling. SIGNATURE: Albin Gu APRN.CNP PATIENT NAME: Berta Sanches DATE: April 07, 2024 TIME: 904 documented in this encounterUc Health10-04-2024 NoteHNO ID: [id number] Author: ALBIN GU APRN.CNP Service: ? Author Type: Nurse Practitioner Type: Progress Notes Filed: 04/07/2024 09:57 Note Text: [facility] [place] [facility] Heart Failure Clinic OUTPATIENT VISIT DATE April 07, 2024 OUTPATIENT VISIT TYPE ESTABLISHED PRIMARY CARE PHYSICIAN: Gerard Le PA-C CHIEF COMPLAINT: Patient presents with: [...] a boat and take it out on [place] to [employer]. IMPRESSION: NYHA Functional Class: II Stage: C [...] left Bilateral pneumonia 07/20/ (more content not included)...[facility] 02-21-2024 Telephone encounter Note* Telephone Encounter - [...] of plan of care. Melida Koo APRN.CNP [facility] Work Phone: 1(845) 359-124008-19-2024 Miscellaneous Notes* Telephone Encounter - Melida Koo [...] care. Melida Koo APRN.CNP documented in this encounterUc Health08-05-2024 Telephone encounter Note * Telephone Encounter - [...] to Maribell as well. Ying Fuentes LPN [facility]08-05-2024 Miscellaneous Notes* Telephone Encounter - Ying Fuentes [...] BNP. Maribell King APRN.CNP documented in this encounterUc Health08-05-2024 Telephone encounter Note * Telephone Encounter - Maribell King APRN.CNP - 02/07/2024 12:47 PM EDT Patient should double Lasix to 40 mg BID for 3 days, then recheck BMP that has been ordered per PCP. Please ask patient to monitor daily weights. Maribell King APRN.CNP [facility]08-05-2024 Telephone encounter Note* Telephone Encounter - Melida [...] left for call back. Melida Koo APRN.CNP [facility] Work Phone: 1(689) 632-326308-05-2024 Miscellaneous Notes* Telephone Encounter - Melida Koo [...] left for call back. Melida Koo APRN.CNP documented in this encounterUc Health08-02-2024 Telephone encounter Note * Telephone Encounter - Ying Fuentes LPN - 02/04/2024 2:13 PM EDT I spoke to and informed them of Maribell's response to lab results and recommendations. Patient voiced understanding. Patient states BNP is elevated from 2 months ago. Patient asking if she should make any changes. Patient c/o weight gain and SOB with activity. Ying Fuentes LPN [facility]08-02-2024 Telephone encounter Note* Telephone Encounter - Ying Fuentes LPN - 02/04/2024 2:12 PM EDT ----- Message from Maribell King APRN.CNP sent at 02/04/2024 2:02 PM EDT ----- Please call the patient and report lab results revealed stable kidney function, normal potassium level, normal liver function, cholesterol is under good control, and elevated BNP. Maribell King APRN.CNP [facility]08-02-2024 Telephone encounter Note* Telephone Encounter - Albin [...] answered at this time. Albin Gu APRN.CNP [facility]08-02-2024 Miscellaneous Notes* Telephone Encounter - Albin Gu [...] time. Albin Gu APRN.CNP documented in this encounterUc Health07-15-2024 Instructions* Patient Instructions* Carla Burdick MD - 01/17/2024 10:08 AM EDT We will repeat fasting blood work documented in this encounterUc Health07-15-2024 History of Present illness Narrative* Carla Burdick MD - 01/17/2024 9:20 AM EDT Images from the original note were not included. [facility] SECTION OF REGIONAL CARDIOLOGY Cardiology ([facility]) [address] [facility] [phone] OUTPATIENT VISIT DATE 01/17/2024 PRIMARY CARE PHYSICIAN: Gerard Le [address] [place] [address] HISTORY OF PRESENT ILLNESS: Ms. 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 Lua PACEMAKER 10/2019 PART. HYSTERECTOMY W/WO RMVL OVARIES/TUBES 1973 h/o cervical cancer ovaries remain PAST SURGICAL HISTORY OF 1996 Aortic valve repair, Dr. Apodaca PAST SURGICAL HISTORY OF 2001 [address] Beltrán, [facility] PAST SURGICAL HISTORY OF 2015 clipping [...] MG TABLET 8. SSS (sick sinus syndrome) ([facility]) - ICD9: 427.81, ICD10: I49.5 9. Primary [...] ICD10: Z95.0 12. PAD (peripheral artery disease) ([facility]) - ICD9: 443.9, ICD10: I73.9 Carla Burdick MD documented in this encounterUc Health07-15-2024 NoteHNO ID: [id number] Author: CARLA BURDICK MD Service: ? Author Type: Physician Type: Progress Notes Filed: 01/17/2024 10:36 Note Text: [facility] SECTION OF REGIONAL CARDIOLOGY Cardiology ([facility]) [address] [facility] [phone] OUTPATIENT VISIT DATE 01/17/2024 PRIMARY CARE PHYSICIAN: Gerard Le [address] [place] [address] HISTORY OF PRESENT ILLNESS: Ms. 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 Lua PACEMAKER 10/2019 PART. HYSTERECTOMY W/WO RMVL OVARIES/TUBES 1974 h/o cervical cancer ovaries remain PAST SURGICAL HISTORY OF 1996 Aortic valve repair, Dr. Apodaca PAST SURGICAL HISTORY OF 2001 [address] Beltrán, [facility] PAST SURGICAL HISTORY OF 2015 clipping [...] mouth once daily. pota (more content not included)...[facility]06-04-2024 Instructions* Patient Instructions* Deysi Collazo APRN.CNP - 12/07/2023 12:13 PM EDT Continue the same medications. If no better or worsening, start the antibiotic. Start mucinex or coricidin. Let us know if no improvement/worsening. 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 Lua PACEMAKER 10/2019 PART. HYSTERECTOMY W/WO RMVL OVARIES/TUBES 1974 h/o cervical cancer ovaries remain PAST SURGICAL HISTORY OF 1996 Aortic valve repair, Dr. Apodaca PAST SURGICAL HISTORY OF 2001 [address] Beltrán, [facility] PAST SURGICAL HISTORY OF 2015 clipping [...] improvement. Deysi Collazo APRN.JASPREET documented in this encounterUc Health05-24-2024 History of Present illness Narrative* Valentine Meneses [...] 11-08-23 ED/ eloped due to wait time 24 ED/ admit for Ac on chronic CHF [...] admit pt. Patient Attributed To: QAE Payer: Aetammy CORDO[place] Action Taken: Encounter routed to provider Contact made with patient: No, Chart review only. Signature: Valentine Meneses RN documented in this encounterUc Health05-23-2024 Instructions* Patient Instructions* Albin Gu APRN.CNP - [...] question or concern, you cancall me at [phone]. documented in this encounterUc Health05-23-2024 History of Present illness Narrative* Albin Gu APRN.JASPREET - 11/25/2023 10:00 AM EDT Images from the original note were not included. [facility] [place] [facility] OUTPATIENT VISIT DATE November 23, 2023 OUTPATIENT VISIT TYPE NEW PRIMARY CARE PHYSICIAN: Gerard Le PA-C REFERRING PHYSICIAN: No referring provider [...] timeline ofover 5 years ago. Was in [place] over the winter for 3 months. Noticed leg swelling while down [place]. 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 Lua PACEMAKER 10/2019 PART. HYSTERECTOMY W/WO RMVL OVARIES/TUBES 1974 h/o cervical cancer ovaries remain PAST SURGICAL HISTORY OF 1996 Aortic valve repair, Dr. Apodaca PAST SURGICAL HISTORY OF 2001 [address] Beltrán, [facility] PAST SURGICAL HISTORY OF 2016 clipping [...] 10 mL INTRAVENOUS DIRECTED PRLisset Hinojosa MD REVIEW OF SYSTEMS: GENERAL: Positive [...] 25, 2023 TIME: 1000 documented in this encounterUc Health05-21-2024 History of Present illness Narrative* Chula Morales RN - 11/23/2023 2:39 PM EDT Lab from 11/19/[address] Mujica. Greatly improved with oral iron. Pt notified. No need for OVin Hem/Onc and to follow up with PCP. Pt verbalized understanding. Chula Morales, RN documented in this encounterUc Health05-20-2024 Instructions* Patient Instructions* Deysi Collazo APRN.CNP - 11/22/2023 9:53 AM EDT Continue the same medication. Repeat lab on Wednesday after you see Dr. Rodriguez. Moist heat/ice to the back. Massage to the area. Let us know if any problems/concerns. documented in this encounterUc Health05-20-2024 History of Present illness Narrative* Deysi Collazo APRN.CNP - 11/22/2023 9:08 AM EDT This is a 78 year old female who presents today with: Patient presents with: Hospital Follow Up: [facility] follow up dc'd 11/12/23 dx: CHF HISTORY OF PRESENT ILLNESS: Berta Sanches is a 78 year old female. Patient presents with: Hospital Follow Up: [facility] follow up dc'd 11/12/23 dx: CHF Pt presents today for hospital follow-up. Discharged on 11/11 from [place] w/ dx of CHF. 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 Lua PACEMAKER 10/2019 PART. HYSTERECTOMY W/WO RMVL OVARIES/TUBES 1974 h/o cervical cancer ovaries remain PAST SURGICAL HISTORY OF 1996 Aortic valve repair, Dr. Apodaca PAST SURGICAL HISTORY OF 2001 [address] Beltrán, [facility] PAST SURGICAL HISTORY OF 2016 clipping [...] improvement. Deysi Collazo APRN.JASPREET documented in this encounterUc Health05-17-2024 Telephone encounter Note * Telephone Encounter - Albin Gu APRN.CNP - 11/19/2023 8:37 AM EDT Patient called office for instructions on diuretics as her weight is up 5 lbs. She states she was instructed to call the office with questions. This ATHLETIC AGENT has not seen this patient in clinic but is scheduled to see her in the following week. 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 She has been taking additional 20 mg [...] Patient agrees and understands. Albin Gu APRN.CNP [facility] Work Phone: 1(802) 246-330405-17-2024 Miscellaneous Notes* Telephone Encounter - Albin Gu APRN.CNP - 11/19/2023 8:37 AM EDT Patient called office for instructions on diuretics as her weight is up 5 lbs. She states she was instructed to call the office with questions. This ATHLETIC AGENT has not seen this patient in clinic but is scheduled to see her in the following week. 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 She has been taking additional 20 mg [...] Patient agrees and understands. Albin Gu APRN.CNP documented in this encounterUc Health05-15-2024 Telephone encounter Note * Telephone Encounter - [...] No results found for this basename: BNP [facility]05-15-2024 Miscellaneous Notes* Telephone Encounter - Gwen Valentine [...] for this basename: BNP documented in this encounterUc Health05-14-2024 Telephone encounter Note * Telephone Encounter - Mona Noonan - 11/16/2023 8:53 AM EDT Called patient and scheduled as Directed Mona Noonan [facility]05-14-2024 Miscellaneous Notes* Telephone Encounter - Mona Noonan [...] malabsorption [K90.9 (ICD-10-CM)] * Telephone Encounter - Gerard Le PA-C - 11/15/2023 8:31 AM EDT Hospitalist is recommending outpatient iron transfusion. Please schedule. Telephone on 10/31/23 CONSULT TO HEMATOLOGY Edmund Alex PA-C documented in this encounterUc Health05-14-2024 History of Present illness Narrative* Geri Montes RN - 11/16/2023 8:15 AM EDT ACM CECY RN Patient identified by name and date of . Reason for review or outreach: Chart Review Cecy Priority Emergency Department Utilization ED DIAGNOSES/REASON(S) FOR ED USE: OTHER FINDINGS/SUMMARY:E.D. visit on 11-09-23 transitioned to [facility] Admit Patient Attributed To: QAE Payer: [place]el[place] Action Taken: No action needed Contact made with patient: No, Chart review only. Signature: Geri Montes RN documented in this encounterUc Health05-13-2024 Telephone encounter Note * Telephone Encounter - Nara Malone RN - 11/15/2023 10:32 AM EDT Transitional Care Management (TCM) [facility] Monitoring Program Provider Action / FYI: na SUMMARY: Outreach type: INITIAL OUTREACH Discharge Network Status: In-Network Discharge Source of Patient: [facility] TCM Discharge Report Patient discharged from [facility] on 11.09.23. Admitted for Acute on chronic left systolic heart failure . Contact made with patient: Yes, for Initial Outreach Hi my name is Nara Malone RN and I am calling from the [facility] on behalf of your PrimaryCare Provider, Gerard Le PA-C. I understand you were recently [...] Appointment Center phone number to speak witha interventional tech who can assist you with that appointment. [...] Malone RN November 15, 2023 10:35 AM [facility]05-13-2024 Miscellaneous Notes* Telephone Encounter - Nara Malone RN - 11/15/2023 10:32 AM EDT Transitional Care Management (TCM) [facility] Monitoring Program Provider Action / FYI: na SUMMARY: Outreach type: INITIAL OUTREACH Discharge Network Status: In-Network Discharge Source of Patient: [facility] TCM Discharge Report Patient discharged from [facility] on 11.09.23. Admitted for Acute on chronic left systolic heart failure . Contact made with patient: Yes, for Initial Outreach Hi my name is Nara Malone RN and I am calling from the [facility] on behalf of your PrimaryCare Provider, Gerard Le PA-C. I understand you were recently [...] Appointment Center phone number to speak witha interventional tech who can assist you with that appointment. [...] 15, 2023 10:35 AM documented in this encounterUc Health05-13-2024 Telephone encounter Note * Telephone Encounter - Ralph Mujica DO - 11/15/2023 9:31 AM EDT Hemoglobin okay. Not urgent. Next new appointment time with either me or Dr. Rodriguez. [facility]05-13-[facility] Telephone encounter Note* Telephone Encounter - Rachele Bee LPN - 11/15/2023 9:26 AM EDT Dx: 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 (ICD-10-CM)]; Iron malabsorption [K90.9 (ICD-10-CM)] [facility]05-13-2024 Telephone encounter Note* Telephone Encounter - Gerard Le PA-C - 11/15/2023 8:31 AM EDT Hospitalist is recommending outpatient iron transfusion. Please schedule. Telephone on 10/31/23 CONSULT TO HEMATOLOGY ThanksEdmund PA-C [facility]05-10-2024 Telephone encounter Note* Telephone Encounter - Vandana Baird PSS - 11/12/2023 3:45 PM EDT [facility] at home referral was received for Heart Failure services. Unfortunately the referral is declined at this time due to geographic location. Thank you for the referral. KAITLYNN Tuttle [facility]05-10-2024 Miscellaneous Notes* Telephone Encounter - Vandana Baird [...] 11/12/2023 Referral Source: [facility] TC Program: HF Consult UD Consult scheduled with: NA Date of : 1945 Age: [age] year old PCP: Gerard Le PA-C Visit address from [facility]: [address] [place] [address] Name of Physician who gave the order: Dr. Rita Rey Other services ordered: None Primary Insurance Company: Payor: [employer] MEDICARE / Plan: [employer] MEDICARE PPO / Product Type: PPO / Primary Insurance ID Number: [id number] documented in this encounterUc Health05-10-2024 Telephone encounter Note * Telephone Encounter - Vandana Baird PSS - 11/12/2023 3:44 PM EDT Transitional Care Program - Intake Template - for interface Date Referral Received: 11/12/2023 Referral Source: [facility] TC Program: HF Consult UD Consult scheduled with: NA Date of : 1945 Age: [age] year old PCP: Gerard Le PA-C Visit address from [facility]: [address] [place], [place] [id number] Name of Physician who gave the order: Dr. Rita Rey Other services ordered: None Primary Insurance Company: Payor: [employer] MEDICARE / Plan: [employer] MEDICARE PPO / Product Type: PPO / Primary Insurance ID Number: [id number] [facility]05-10-2024 Evaluation note* Diagnosis Stage 3 chronic kidney disease, unspecified whether stage 3a or 3b CKD (HCC)- Primary documented in this encounter [facility]05-06-2024 History of Present illness Narrative* Bere Boykin APRN.CNP - 11/08/2023 4:30 PM EDT Images from the original note were not included. 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 Lua PACEMAKER 10/2019 PART. HYSTERECTOMY W/WO RMVL OVARIES/TUBES 1974 h/o cervical cancer ovaries remain PAST SURGICAL HISTORY OF 1996 Aortic valve repair, Dr. Apodaca PAST SURGICAL HISTORY OF 2001 [address] Beltrán, [facility] PAST SURGICAL HISTORY OF 2015 clipping [...] - May be candidate for DCCV at [facility] once euvolemic 3. Acute on chronic [...] hemodynamic stability, he spouse drove her to [facility] ER. I called report to Dr. Tuttle in theER. CONTACT INFORMATION: Bere Boykin APRN.[facility] Cardiology [address] [facility] [address] Dept: [phone] I have reviewed the patient's medications and allergies, past medical, surgical, social and family history, updating these as appropriate. See Histories section of the [facility] for a display of this information. 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 Lua PACEMAKER 10/2019 PART. HYSTERECTOMY W/WO RMVL OVARIES/TUBES 1974 h/o cervical cancer ovaries remain PAST SURGICAL HISTORY OF 1996 Aortic valve repair, Dr. Apodaca PAST SURGICAL HISTORY OF 2001 [address] 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 ([facility]) History of Pulmonary Embolism Ascending Aorta Dilatation ([facility]) Chronic Bilateral Pleural Effusions Colovesical Fistula Right Renal Mass Diverticulitis Large Intestine W/O Perforation Or Abscess W/O Bleeding Renal Cell Carcinoma, Right ([facility]) Iron Deficiency Anemia Hypomagnesemia Gastrointestinal Hemorrhage Associated With Acute Gastritis Esophageal Stenosis Dilated Cardiomyopathy ([facility]) Chronic Combined Systolic and Diastolic Chf (Congestive Heart Failure) ([facility]) Sss (Sick Sinus Syndrome) ([facility]) Duodenal Ulcer Type 2 Diabetes Mellitus With Diabetic Peripheral Angiopathy Without Gangrene, Without Long-Term Current Use of Insulin ([facility]) Longstanding Persistent Atrial Fibrillation ([facility]) S/P Placement of Cardiac Pacemaker Ckd (Chronic Kidney Disease) Platelet Inhibition Due to Plavix Diverticulosis Lung Nodule, Solitary Red Blood Cell Antibody Positive Iron Deficiency Anemia Secondary to Inadequate Dietary Iron Intake Iron Malabsorption Chronic Renal Failure, Stage 3b ([facility]) Spondylolisthesis At L4-L5 Level Occlusion of Superior Mesenteric Artery ([facility]) Current Outpatient Medications Medication Sig [...] diastolic CHF (congestive heart failure) ([facility]) - ICD9: 428.42, 428.0, ICD10: I50.42 5. Dilated cardiomyopathy (HCC) - ICD9: 425.4, ICD10: I42.0 6. Longstanding persistent atrial fibrillation (HCC) - ICD9: 427.31, ICD10: I48.11 7. SSS (sick sinus syndrome) ([facility]) - ICD9: 427.81, ICD10: I49.5 8. S/P [...] next week. Many questions from were answered. Gerard Le PA-C documented in this encounterUc Health05-01-2024 Telephone encounter Note * Telephone Encounter - Gerard Le PA-C - 11/03/2023 10:36 AM EDT She needs to see person scheduled next week. She may need additional appointment with the pulmonology specialist in addition but haven't heard from Dr. Burdick yet. Thanks, Edmund Le PA-C [facility]05-01-2024 Miscellaneous Notes* Telephone Encounter - Gerard Le PA-C - 11/03/2023 10:36 AM EDT She needs to see person scheduled next week. She may need additional appointment with the pulmonology specialist in addition but haven't heard from Dr. Burdick yet. Thanks, Edmund Le PA-C * Telephone Encounter - Uma Parson MA - 11/02/2023 10:59 AM EDT After review pt is currently scheduled with a X Ray Consultant in [place] on 11/08/23. This was setup on10/25/23. Her Cardiology appt with Clara is in January. Is she still following with him or seeing someone new? Uma Parson MA * Telephone Encounter - Gerard Le PA-C - 11/02/2023 10:54 AM EDT Please see if we can expedite cardiology visit to LIA r/t SOB, weight gain, lower extremity swelling and recent abnormal echo finding. Patient is willing for invasive procedures if necessary. Thanks, Edmund Le PA-C documented in this encounterUc Health04-30-2024 Telephone encounter Note * Telephone Encounter - Sandra Thacker LPN - 11/02/2023 5:13 PM EDT Patient notified. Verbalized understanding. Is scheduled for for follow up. [facility]04-30-2024 Miscellaneous Notes* Telephone Encounter - Sandra Thacker LPN - 11/02/2023 5:13 PM EDT Patient notified. Verbalized understanding. Is scheduled for for follow up. * Telephone Encounter - Gerard Le PA-C - 11/02/2023 5:04 PM EDT Please advise from [employer] message: Gilbert Benjamin You labs show you [...] METABOLIC PANEL ThanksEdmund PA-C documented in this encounterUc Health04-30-2024 Telephone encounter Note * Telephone Encounter - Gerard Le PA-C - 11/02/2023 5:04 PM EDT Please advise from [employer] message: Hi Cassidy You labs show you [...] AND TIBC BASIC METABOLIC PANEL ThanksEdmund PA-C [facility]04-30-2024 Telephone encounter Note* Telephone Encounter - Uma Parson MA - 11/02/2023 10:59 AM EDT After review pt is currently scheduled with a X Ray Consultant in [place] on 11/08/23. This was setup on10/25/23. Her Cardiology appt with Clara is in January. Is she still following with him or seeing someone new? Uma Parson MA [facility]04-30-2024 Telephone encounter Note* Telephone Encounter - Gerard Le PA-C - 11/02/2023 10:54 AM EDT Please see if we can expedite cardiology visit to LIA r/t SOB, weight gain, lower extremity swelling and recent abnormal echo finding. Patient is willing for invasive procedures if necessary. Edmund Alex PA-C [facility]04-16-2024 History of Present illness Narrative* Lars Silva DO - 10/19/2023 4:00 PM EDT Reviewed DVT study with Cassidy. No evidence of DVT. Recommend follow up as scheduled with PCP and cardiology. documented in this encounterUc Health04-15-2024 History of Present illness Narrative* Marisol Cook RT(Annalisa) - 10/18/2023 2:30 PM EDT Radiology Service [...] PATIENT PRESENTS WITH AN IMPLANTABLE OR ATTACHED PUBLIC RELATIONS STUDIES DIRECTOR: No RADIOLOGY DEPARTMENT: General X-ray: Exam(s) Completed: Chest X-Ray PERIPHERAL IV DATA: Not applicable SIGNED BY: RT Mario(Annalisa) October 18, 2023 2:28 PM documented in this encounterUc Health04-15-2024 Instructions* Patient Instructions* Gerard Le PA-C - 10/18/2023 1:52 PM EDT [...] lab in 2 weeks. documented in this encounterUc Health04-15-2024 History of Present illness Narrative* Gerard Le PA-C - 10/18/2023 1:00 PM EDT 78 year old female with c/o here for Pedro Aneurysm Neurosurgeon Dr. Dianne Rogers, Susan Mtz SCRAP CHARGER 12/10/2022 MRA brain W/WO: Satisfactory appearance of [...] 0) Sss (sick sinus syndrome) ([facility]) Paroxysmal atrial fibrillation ([facility]) S/p placement of cardiac pacemaker (primary encounter diagnosis) Chronic combined systolic and diastolic chf (congestive heart failure) ([facility]) Dilated cardiomyopathy ([facility]) Ascending aorta dilatation [facility] H/o rheumatic heart disease History [...] Lymph 1.00 - 4.00 k/uL 2.82 2.73 [place]% % 13.0 10.2 Abs [place] <0.87 k/uL 1.10 (H) 0.79 Eosin% % [...] recent CT scans which were done in [facility]. 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 Lua PACEMAKER 10/2019 PART. HYSTERECTOMY W/WO RMVL OVARIES/TUBES 1974 h/o cervical cancer ovaries remain PAST SURGICAL HISTORY OF 1996 Aortic valve repair, Dr. Apodaca PAST SURGICAL HISTORY OF 2001 [address] Beltrán, [facility] PAST SURGICAL HISTORY OF 2016 clipping [...] Heart Failure) (Hcc) Sss (Sick Sinus Syndrome) ([facility]) Duodenal Ulcer Type 2 Diabetes Mellitus With Diabetic Peripheral Angiopathy Without Gangrene, Without Long-Term Current Use of Insulin (Hcc) Longstanding Persistent Atrial Fibrillation ([facility]) S/P Placement of Cardiac Pacemaker Ckd (Chronic Kidney Disease) Platelet Inhibition Due to Plavix Diverticulosis Lung Nodule, Solitary Red Blood Cell Antibody Positive Iron Deficiency Anemia Secondary to Inadequate Dietary Iron Intake Iron Malabsorption Chronic Renal Failure, Stage 3b ([facility]) Spondylolisthesis At L4-L5 Level Occlusion of Superior Mesenteric Artery ([facility]) Current Outpatient Medications Medication Sig [...] 2. SSS (sick sinus syndrome) ([facility]) - ICD9: 427.81, ICD10: I49.5 3. Paroxysmal atrial fibrillation (HCC) - ICD9: 427.31, ICD10: I48.0 4. S/P placement of cardiac pacemaker - ICD9: V45.01, ICD10: Z95.0 5. Chronic combined systolic and diastolic CHF (congestive heart failure) ([facility]) - ICD9: 428.42, 428.0, ICD10: I50.426. Dilated [...] % (FLUSH) INJECTION SYRINGE - INSERT IV (CT,IL) - IV DISCONTINUE 10. Platelet inhibition due [...] and detailed history, additional education on medication Gerard Le PA-C documented in this encounterUc Health04-12-2024 Miscellaneous Notes* Telephone Encounter - Mckayla Albert [...] appointment in January 2024. [place] [facility] [place] into [place] but if seen there she cannot be seen back in [place] location which is her preference. Patient is willing to travel to [facility] if she needs to. Please review and advise. Mckayla Albert LPN documented in this encounterUc Health04-11-2024 History of Present illness Narrative* Lars Silva Kellen, DO - 10/14/2023 2:57 PM EDT Images from the original note were not included. Heart , Vascular [facility] Thor[facility] [place] DEPARTMENT OF VASCULAR SURGERY OUTPATIENT VISIT DATE October 14, 2023 OUTPATIENT VISIT TYPE ESTABLISHED SERVICE DATE: 10/14/2023 SERVICE TIME: 2:58 PM PRIMARY CARE PHYSICIAN: Gerard Le PA-C HISTORY OF PRESENT ILLNESS: Ms. 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 Lua PACEMAKER 10/2019 PART. HYSTERECTOMY W/WO RMVL OVARIES/TUBES 1974 h/o cervical cancer ovaries remain PAST SURGICAL HISTORY OF 1996 Aortic valve repair, Dr. Apodaca PAST SURGICAL HISTORY OF 2001 [address] Beltrán, [facility] PAST SURGICAL HISTORY OF 2015 clipping [...] 2023 TIME: 2:58 PM documented in this encounterUc Health01-01-2024 History of Present illness Narrative* Bijan Cole [...] interactions). Bijan Cole MD documented in this encounterUc Health12-04-2023 Miscellaneous Notes* Telephone Encounter - Sheree Savage Ma - 06/07/2023 4:55 PM EST Patient stopped by office and picked up shoe. 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 Sheree Savage Ma * Telephone Encounter - Uma Parson Ma - 06/07/2023 9:43 AM EST See response from pt. Uma Parson Ma documented in this encounterUc Health11-28-2023 History of Present illness Narrative* Marisol Cook [...] 01, 2023 2:31 PM documented in this encounterUc Health10-27-2023 History of Present illness Narrative* Mckayla Reed [...] 30, 2023 1:48 PM documented in this encounterUc Health10-09-2023 History of Present illness Narrative* Marisol Cook [...] 12, 2023 10:32 AM documented in this encounterUc Health09-11-2023 Miscellaneous Notes* Telephone Encounter - Margoth Bolaños [...] and advise. Agueda Schulte documented in this encounterUc Health07-27-2023 Miscellaneous Notes* Telephone Encounter - Bushra Strauss - 01/28/2023 10:43 AM EDT Patient has been contacted and scheduled with Dr. Silva * Telephone Encounter - Sheree Savage Ma - 01/28/2023 9:55 AM EDT Pt viewed Glopho message. Please help pt set up consult. * Telephone Encounter - Gerard Le PA-C - 01/28/2023 6:33 AM EDT Please schedule: Telephone on 01/28/23 CONSULT TO VASCULAR SURGERY Pvd (peripheral vascular disease) with claudication (hcc) (primary encounter diagnosis) See mychart regarding PVR resuts Edmund Alex PA-C documented in this encounterUc Health07-07-2023 Miscellaneous Notes* Telephone Encounter - Berta Keith - 01/08/2023 1:51 PM EDT Patient stated she will talk to Edmund at her appoitment.Berta Garcia Pss * Telephone Encounter - Sheree Savage Ma - 01/08/2023 9:34 AM EDT Images from the original note were not included. Gerard Le PA-C [facility] David Aldana Please assist patient to schedule outstanding CT chest WO to follow lung nodules if she is amenable Edmund Alex PA-C documented in this encounterUc Health07-06-2023 Instructions* Patient Instructions* Gerard Le PA-C - 01/07/2023 9:20 AM EDT [...] due to heart conditions documented in this encounterUc Health07-06-2023 History of Present illness Narrative* Gerard Le PA-C - 01/07/2023 8:40 AM EDT 77 year old female with c/o here for routine follow up. Worst problem currently are legs. Has to get up and walk around. Drinks tonic water with quinine. Pain is excruciating. Severe pain. Not every night. Pedro Aneurysm Neurosurgeon Dr. Dianne Rogers, Susan Mtz SCRAP CHARGER 12/10/2022 MRA brain W/WO: Satisfactory appearance of [...] - 4.00 k/uL 2.05 2.22 1.81 2.82 [place]% % 12.7 12.3 12.6 13.0 Abs [place] <0.87 k/uL 0.93 (H) 1.06 (H) 0.74 [...] recent CT scans which were done in [facility]. 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 Lua PACEMAKER 10/2019 PART. HYSTERECTOMY W/WO RMVL OVARIES/TUBES 1974 h/o cervical cancer ovaries remain PAST SURGICAL HISTORY OF 1996 Aortic valve repair, Dr. Apodaca PAST SURGICAL HISTORY OF 2001 [address] Beltrán, [facility] PAST SURGICAL HISTORY OF 2015 clipping [...] Heart Failure) (Hcc) Sss (Sick Sinus Syndrome) (Hcc) Duodenal [...] TABLET BY MOUTH TWICE A DAY 60 [id number] clopidogrel (PLAVIX) 75 mg tablet Take 1 [...] [facility] 2. Atherosclerosis of ramona artery of both lower extremities with intermittent [...] UR - HGB A1C documented in this encounterUc Health06-08-2023 NoteHNO ID: [id number] Author: RT Pranav(R) Service: Radiology Author Type: [...] BY: RT Pranav(R) December 10, 2022 1:06 [facility]04-04-2023 History of Present illness Narrative* M Claudia Le PA-C - 10/06/2022 9:00 AM EDT 77 year old female with c/o here for follow up Pedor Aneurysm Neurosurgeon Dr. Dianne Rogers, Susan Mtz [facility] 12/07/2017 note: f/u MRA recommended 202012/02/2017 MRA brain WO/W: Endovascular coil mass involving the anterior communicating artery. No evidence of residual filling, aneurysm recurrence or coil impaction. Patent intracranial circulation. No evidence of aneurysm, occlusion, high-grade intracranial stenosis. 11/03/[address] F/U Dr. Rogres 09/21/2015 IR: Successful stent-assisted coil embolization of [...] - 4.00 k/uL 2.05 2.22 1.81 2.82 [place]% % 12.7 12.3 12.6 13.0 Abs [place] <0.87 k/uL 0.93 (H) 1.06 (H) 0.74 [...] recent CT scans which were done in [facility]. 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 Lua PACEMAKER 10/2019 PART. HYSTERECTOMY W/WO RMVL OVARIES/TUBES 1974 h/o cervical cancer ovaries remain PAST SURGICAL HISTORY OF 1996 Aortic valve repair, Dr. Apodaca PAST SURGICAL HISTORY OF 2001 [address] Beltrán, [facility] PAST SURGICAL HISTORY OF 2015 clipping [...] Heart Failure) (Hcc) Sss (Sick Sinus Syndrome) (Hcc) Duodenal [...] TABLET BY MOUTH TWICE A DAY 60 [id number] clopidogrel (PLAVIX) 75 mg tablet Take 1 [...] 2. SSS (sick sinus syndrome) ([facility]) - ICD9: 427.81, ICD10: I49.5 3. Chronic combined systolic and diastolic CHF (congestive heart failure) ([facility]) - ICD9: 428.42, 428.0, ICD10: I50.42 4. Dilated cardiomyopathy ([facility]) - ICD9: 425.4, ICD10: I42.0 5. Ascending aorta dilatation ([facility]) - ICD9: 447.71, ICD10: I77.810 6. H/O rheumatic heart disease - ICD9: V12.59, ICD10: Z86.79 7. History of prosthetic aortic valve replacement - ICD9: V43.3, ICD10: Z95.2 8. Paroxysmal atrial fibrillation ([facility]) - ICD9: 427.31, ICD10: I48.0 9. Presence [...] schedule CT chest follow up today on [facility] 15. Chronic renal failure, stage 3b (HCC) [...] - HGB A1C - COMP METABOLIC PANEL Gerard Le PA-C documented in this encounterUc Health04-03-2023 History of Present illness Narrative* Erin Lauren [...] 05, 2022 9:36 AM documented in this encounterUc Health04-03-2023 Miscellaneous Notes* Result Encounter Note - Brayan Chicas MD - 10/05/2022 8:30 AM EDT Here are the test results.Keep follow up appointment to discuss the results. documented in this encounterUc Health03-28-2023 Miscellaneous Notes* Telephone Encounter - Rachele Bee LPN - 09/29/2022 12:06 PM EDT Patient no longer followed by Dr. Lund. Rachele Bee LPN documented in this encounterUc Health03-27-2023 Instructions* Patient Instructions* Carla Burdick MD - 09/28/2022 9:30 AM EDT We will repeat an echocardiogram in March Repeat fasting blood work documented in this encounterUc Health03-27-2023 History of Present illness Narrative* Carla Burdick MD - 09/28/2022 9:00 AM EDT Images from the original note were not included. [facility] SECTION OF REGIONAL CARDIOLOGY Cardiology ([facility]) [address] [facility] [id number] OUTPATIENT VISIT DATE 09/28/2022 PRIMARY CARE PHYSICIAN: Gerard Le [address] [place] [address] HISTORY OF PRESENT ILLNESS: Ms. 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 Lua PACEMAKER 10/2019 PART. HYSTERECTOMY W/WO RMVL OVARIES/TUBES 1973 h/o cervical cancer ovaries remain PAST SURGICAL HISTORY OF 1996 Aortic valve repair, Dr. Apodaca PAST SURGICAL HISTORY OF 2001 [address] Beltrán, [facility] PAST SURGICAL HISTORY OF 2015 clipping [...] - Exam was compared with the prior [facility] echocardiographic exam performed on 01/12/2022. Small [...] CBC is pending 4. Ascending aorta dilatation ([facility]) - ICD9: 447.71, ICD10: I77.810 5. Dilated cardiomyopathy (HCC) - ICD9: 425.4, ICD10: I42.0 Patient maintained on Toprol and losartan. 6. Chronic combined systolic and diastolic CHF (congestive heart failure) ([facility]) - ICD9: 428.42, 428.0, ICD10: I50.42 Patient doing well on current diuretic therapy low-sodium diet 7. SSS (sick sinus syndrome) ([facility]) - ICD9: 427.81, ICD10: I49.5 8. S/P placement of cardiac pacemaker - ICD9: V45.01, ICD10: Z95.0 9. PAD (peripheral artery disease) ([facility]) - ICD9: 443.9, ICD10: I73.9 History of mild bilateral carotid artery disease. No symptoms for TIA or CVA. 10. Hyperlipidemia with target LDL less than 70 - ICD9: 272.4, ICD10: E78.5 Maintained on simvastatin 20 mg daily. Repeat fasting lipid panel - LIPID PANEL BASIC Carla Burdick MD documented in this encounterUc Health02-27-2023 Miscellaneous Notes* Telephone Encounter - Margoth Bolaños [...] 10/06/22 Margoth Bolaños MA documented in this encounterUc Health01-18-2023 Miscellaneous Notes* Telephone Encounter - Mars Xiao - 07/22/2022 12:54 PM EST Study explained/reviewed with patient. Study related follow-up requirements were discussed. Risks, benefits, alternatives, personnel, and costs of the study explained/reviewed. Patient provided informed consent for review by email. Study related questions were addressed. Provided patient with contact information to call. Mars Xiao documented in this encounterUc Health01-16-2023 Miscellaneous Notes* Telephone Encounter - Sheree Savage Ma - 07/20/2022 12:11 PM EST Faxed to [facility] at [phone] * Telephone Encounter - Sheree Savage Ma - 07/08/2022 12:45 PM EST Request sent to radiology * Telephone Encounter - Gerard Le PA-C - 07/08/2022 10:37 AM EST Please have 02/21/[address] IVC PE from [facility] imported and reviewed by radiologist for comparison with 03/19/2022 CT chest w IVCON PE. Not sure if this is the right order or even if needs order. Telephone on 07/08/22 CONSULT TO RADIOLOGY ThanksEdmund PA-C documented in this encounterUc Health01-03-2023 History of Present illness Narrative* Gerard Le PA-C - 07/07/2022 9:00 AM EST [...] 1.00 - 4.00 k/uL 2.05 2.22 1.81 [place]% % 12.7 12.3 12.6 Abs [place] <0.87 k/uL 0.93 (H) 1.06 (H) 0.74 [...] artery Neurosurgeon Dr. Dianne Rogers, Susan Mtz SCRAP CHARGER 12/07/2017 note: f/u MRA 202012/02/2017 MRA brain [...] gangrene, without long-term current use of insulin ([facility]) Current medications: none Taking medication as [...] recent CT scans which were done in [facility]. 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 Lua PACEMAKER 10/2019 PART. HYSTERECTOMY W/WO RMVL OVARIES/TUBES 1973 h/o cervical cancer ovaries remain PAST SURGICAL HISTORY OF 1996 Aortic valve repair, Dr. Apodaca PAST SURGICAL HISTORY OF 2001 [address] Beltrán, [facility] PAST SURGICAL HISTORY OF 2015 clipping [...] Colon Skin Cancer Pad (Peripheral Artery Disease) ([facility]) Pedro Aneurysm of Anterior Communicating Artery Stage 3 Chronic Renal Impairment Associated With Type 2 Diabetes Mellitus ([facility]) History of Pulmonary Embolism Ascending Aorta Dilatation ([facility]) Chronic Bilateral Pleural Effusions Colovesical Fistula Right Renal Mass Diverticulitis Large Intestine W/O Perforation Or Abscess W/O Bleeding Renal Cell Carcinoma, Right ([facility]) Iron Deficiency Anemia Hypomagnesemia Gastrointestinal Hemorrhage Associated With Acute Gastritis Esophageal Stenosis Dilated Cardiomyopathy ([facility]) Chronic Systolic Congestive Heart Failure ([facility]) Sss (Sick Sinus Syndrome) ([facility]) Duodenal Ulcer Type 2 Diabetes Mellitus With Diabetic Peripheral Angiopathy Without Gangrene, Without Long-Term Current Use of Insulin ([facility]) Longstanding Persistent Atrial Fibrillation ([facility]) S/P Placement of Cardiac Pacemaker [...] continue medicatioins 3. SSS (sick sinus syndrome) (HCC) - ICD9: 427.81, ICD10: I49.5 4. Atrial fibrillation, unspecified type ([facility]) - ICD9: 427.31, ICD10: I48.91 5. Presence of Watchman left atrial appendage closure device - ICD9: V45.09, ICD10: Z95.818 Currently in controlled regular rhythm with out signs of CHF Continue current meds. 6. Chronic combined systolic and diastolic CHF (congestive heart failure) ([facility]) - ICD9: 428.42, 428.0, ICD10: I50.42 7. S/P placement of cardiac pacemaker - ICD9: V45.01, ICD10: Z95.0 8. Dilated cardiomyopathy ([facility]) - ICD9: 425.4, ICD10: I42.0 Stable, continue to monitor 9. Ascending aorta dilatation ([facility]) - ICD9: 447.71, ICD10: I77.810 Stable 4.5cm [...] long-term current use of insulin ([facility]) - ICD9: 250.70, 443.81, ICD10: E11.51 Controlled [...] ICD9: 443.9, ICD10: I73.9 Following with vascular Gerard Le PA-C F/u 3 months Gerard Le PA-C documented in this encounterUc Health11-21-2022 Miscellaneous Notes* Telephone Encounter - Lizeth Du LPN - 05/25/2022 7:25 AM EST Refill not appropriate at this time, according to records there should be at least 2 refills available. documented in this encounterUc Health11-10-2022 History of Present illness Narrative* Sonny Lund MD - 05/14/2022 9:28 AM EST PATIENT NAME: Berta Sanches. CLINIC NO: [id number]. ATTENDING PHYSICIAN: Sonny Lund MD. DATE OF SERVICE:05/14/2022. DIAGNOSIS: Iron deficiency anemia HPI: This is a 76-year-old lady with history of atrial fibrillation, prosthetic aortic valve replacement and congestive heart failure who presented to [facility] recently for decompensated heartfailure and severe anemia [...] Abs Lymph 1.00 - 4.00 k/uL 1.81 [place]% % 12.6 Abs [place] <0.87 k/uL 0.74 E[place]% % 2.2 Abs [...] updated as necessary. Sonny Lund MD Cc: Gerard Le PA-C documented in this encounterUc Health10-19-2022 Miscellaneous Notes* Telephone Encounter - Lizeth Mcknight [...] 06-08-2022. Lizeth Mcknight LPN documented in this encounterUc Health10-06-2022 Miscellaneous Notes* Telephone Encounter - Sheree Savage Ma - 04/09/2022 3:32 PM EDT Please schedule CT chest for 3 months. 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 Lua PACEMAKER 10/2019 PART. HYSTERECTOMY W/WO RMVL OVARIES/TUBES 1974 h/o cervical cancer ovaries remain PAST SURGICAL HISTORY OF 1996 Aortic valve repair, Dr. Apodaca PAST SURGICAL HISTORY OF 2001 [address] Beltrán, [facility] PAST SURGICAL HISTORY OF 2015 clipping [...] 74 - 99 mg/dL Final Comment: The [place] [employer] Association (ADA) provides guidance for cutoff [...] Standards of Medical Care in Diabetes 2016, [place] [employer]. Diabetes Care. 2016.39(Suppl 1). I [...] extrapolated by contextual derivation. documented in this encounterUc Health10-05-2022 Miscellaneous Notes* Telephone Encounter - Daysi Marina - 04/08/2022 8:41 AM EDT Spoke with patient and scheduled. Daysi Gray * Telephone Encounter - Gerard Le PA-C - 04/07/2022 3:56 PM EDT [...] infusions. Ralph Mujica DO documented in this encounterUc Health10-03-2022 Instructions* Patient Instructions* Gerard Le PA-C - 04/06/2022 11:15 AM EDT [...] cup-Beef (cooked) 2 oz-Beet greens (cooked) 1/2 cup-[place] nuts 5 medium-Cereals 1 oz-Chicken (cooked) 3 oz - Cider (sweet) 10 oz - Clams 1 oz -Egg (Whole) 2- Ham (cooked) 2 oz - Heart (cooked) 2 oz- Kidney (cooked) 1 oz- Marie (cooked) 2 oz- Liver (cooked) 1 oz- Liver sausage 1 oz- Maple syrup 3 tbsp. Molasses 2 tbsp.- Oysters 1 oz- Peaches (dried) 3 cope lves- Peas (cooked) 1/2 cup- Pork (cooked) 2 oz-Prunes 4 medium - Prune juice 1/4 cup - Raisins 1 1/2 oz- Sardines 2 oz- Scallops 2 oz- Shrimp 2 oz- Spinach (cooked) 1/2 cup- Strawberries 1 cup- Tomato juice 3/4 cup- Tongue 2 oz- Tuna 1/2 cup- Matador (cooked) 1 oz- Veal (cooked) 1 oz- Watermelon (6"x11/2") 1 slice-Wheat Germ 2 tbsp. Iron supplements are absorbed best when taken between meals, with liquids other than milk, coffee, or tea. Taking them at bedtime often helps reduce the chance of nausea. If you can't tolerate daily, try at least three times a week. documented in this encounterUc Health10-03-2022 History of Present illness Narrative* Gerard Le PA-C - 04/06/2022 10:20 AM EDT 76 year old female with c/o here for follow hospital Not doing well Very SOB No stamina, very SOB. Mentioned iron infusions. Hospital discharge follow-up Facility [facility] Admission date 03/19/2022 Discharge date 03/22/2022 Pre-hospitalization details: See note 03/19/2022: CHF, EKG AF, hx GIB melena admitted 02/21-02/24/2022 [place]. 03/19/22 Sent from office to [place] ED: VS [id number]- 98% RA Exam + rales. 2/4+ pitting [...] Abs Lymph 1.00 - 4.00 k/uL 2.09 [place]% % 9.6 Abs [place] <0.87 k/uL 0.77 Eosin% % 1.9 Abs [...] Hypomagnesemia SSS (sick sinus syndrome) ([facility]) Type 2 diabetes mellitus with diabetic peripheral [...] control presents having taken a trip to [place] and having had no control over the food served for the amount of salt in it and had progressive swelling in her legs and then subsequently shortness of breath developing. A right 2.5 cm superior pole the rightkidney mass was found concerning for neoplasm that had been noted as long ago as June 2019. On return to [facility], she had presented to the emergency department [...] Review Reviewed by Walter Bates MD, Ph.D ([id number]) Protein, Total 6.3 - 8.0 g/dL 6.0 [...] 2 weeks for nephrology order is in procurement consultant FOLLOW-UP: GI in 2 days scheduled, lung nodule clinic to be scheduled, urology to be scheduled, and nephrology in 4 to 6 weeks to be scheduled LABS AND PROCEDURES PENDING AT DISCHARGE: No pending results. 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 Lua PACEMAKER 10/2019 PART. HYSTERECTOMY W/WO RMVL OVARIES/TUBES 1974 h/o cervical cancer ovaries remain PAST SURGICAL HISTORY OF 1996 Aortic valve repair, Dr. Apodaca PAST SURGICAL HISTORY OF 2001 [address] Beltrán, [facility] PAST SURGICAL HISTORY OF 2015 clipping [...] (TOPEX) X (OR/PROCEDURE) PRSangeeta Gustafson MD 2 [place] at 03/03/22 1149 fentaNYL 50 mcg/mL injection [...] mild sx 5. SSS (sick sinus syndrome) ([facility]) - ICD9: 427.81, ICD10: I49.5 6. Atrial fibrillation, unspecified type ([facility]) - ICD9: 427.31, ICD10: I48.91 7. Presence [...] the purpose of history context and comparison. Gerard Le PA-C documented in this encounterUc Health09-26-2022 Miscellaneous Notes* Telephone Encounter - Sigifredo Rivera LPN - 03/30/2022 10:53 AM EDT TC to pt, appt scheduled with PCP on 04/06 per pt request. Sigifredo Rivera LPN * Telephone Encounter - Gerard Le PA-C - 03/30/2022 6:09 AM EDT Please advise I have reviewed discharge notes. For some reason the attending did not schedule hospital follow up here and it is most important forher to see specialists but we need some kind of hospital follow up in the next 4 -6 weeks. Thanks, Edmund Le PA-C documented in this encounterUc Health09-26-2022 Instructions* Patient Instructions* Carla Burdick MD - 03/30/2022 9:13 AM EDT We are increasing the Toprol (Metoprolol succinate) to 50 mg two times per day We are replacing the Lisinopril with Losartan 25 mg once per day Repeat blood work 7-10 days after starting the Losartan documented in this encounterUc Health09-26-2022 History of Present illness Narrative* Carla Burdick MD - 03/30/2022 8:40 AM EDT Images from the original note were not included. [facility] SECTION OF REGIONAL CARDIOLOGY Cardiology ([facility]) [address] [facility] [id number] OUTPATIENT VISIT DATE 03/30/2022 PRIMARY CARE PHYSICIAN: Gerard Le [address] [place] [address] HISTORY OF PRESENT ILLNESS: Ms. Sanches is a 76 year old woman with a history of remote aortic valve replacement with homograft in 1996 and possible repair of the ascending aorta, hypertension, dyslipidemia, atrial fibrillation with history of pulmonary vein isolation procedures, pacemaker placement recent watchman procedurewho presents for follow-up after hospital admission for congestive heart failure. She had gone on acruise to [place] and developed lower extremity edema and worsening shortness of breath. On return to [place], she had worsening symptoms of weight gain, PND, and orthopnea symptoms. 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 Lua PACEMAKER 10/2019 PART. HYSTERECTOMY W/WO RMVL OVARIES/TUBES 1974 h/o cervical cancer ovaries remain PAST SURGICAL HISTORY OF 1996 Aortic valve repair, Dr. Apodaca PAST SURGICAL HISTORY OF 2001 [address] 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 Carla Burdick MD documented in this encounterUc Health09-17-2022 Miscellaneous Notes* Telephone Encounter - Juan Diego Carroll Jr., MD - 03/21/2022 10:51 AM EDT [place] consult Needs appt with kan in [place] * Telephone Encounter - Juan Diego Carroll Jr., MD - 03/21/2022 10:51 AM EDT ----- Message from Huy Chauhan MD sent at 03/21/2022 9:11 AM EDT ----- Regarding: Renal mass Thank you Mike. Son documented in this encounterUc Health09-16-2022 History of Present illness Narrative* Sheridan Cervantes RN - 03/20/2022 8:22 AM EDT TRANSITION CARE MANAGEMENT (TCM) FOLLOW-UP NOTE Provider Action/FYI Chart reviewed. TCM removed name from TEAMS due to [facility] admission 03/19/22 chf. TCM follow up pending hospital discharge disposition. Summary: Pt discharged from [place] on 02/24. Admitted for: GI bleeding diverticular bleed/acute blood loss anemia Transition Mgr plan for next outreach: No further follow up needed at this time Signature Sheridan Cervantes RN March 20, 2022 documented in this encounterUc Health09-15-2022 History of Past illness Narrative* Problem Noted [...] get beds in local hospital, transferred to [facility]. Anemia due to GI blood loss 10/24/201903/05 [...] 12/22/2018 Prosthetic aortic valve stenosis 11/19/2016 12/22/2018 [facility] current use of antiarrhythmic medical therapy 10/20/2016 [...] diarrhea. Patient had her eyes examined in [place] this year and was told that she [...] of this encounter (statuses as of 03/23/2022) [facility] History of Past illness Narrative* Problem Noted [...] get beds in local hospital, transferred to [facility]. Anemia due to GI blood loss 10/24/201903/05 [...] 12/22/2018 Prosthetic aortic valve stenosis 11/19/2016 12/22/2018 [facility] current use of antiarrhythmic medical therapy 10/20/2016 [...] diarrhea. Patient had her eyes examined in [place] this year and was told that she [...] of this encounter (statuses as of 03/28/2022) [facility] History of Past illness Narrative* Problem Noted [...] get beds in local hospital, transferred to [facility]. Anemia due to GI blood loss 10/24/201903/05 Last Assessment & Plan: Assessment & PLAN: See above Renal cell carcinoma 10/24/2019 09/12/2021 Last Assessment & Plan: Currently following with urology (Dr. Wagner) outpatient for routine surveillance imaging MRI kidney on 07/11/19 noting stable 2.2 cm right renal mass No plans for surgical intervention at this time Diverticulitis of large inte faoroq with perforation and abscess without bleeding 06/16/2019 [...] 12/22/2018 Prosthetic aortic valve stenosis 11/19/2016 12/22/2018 [facility] intermediate current use of antiarrhythmic medical therapy 10/20/2016 [...] diarrhea. Patient had her eyes examined in [place] this year and was told that she [...] of this encounter (statuses as of 03/30/2022) [facility] of Past illness Narrative* Problem Noted [...] get beds in local hospital, transferred to [facility]. Anemia due to GI blood loss 10/24/201903/05 [...] 12/22/2018 Prosthetic aortic valve stenosis 11/19/2016 12/22/2018 [facility] current use of antiarrhythmic medical therapy 10/20/2016 [...] diarrhea. Patient had her eyes examined in [place] this year and was told that she [...] of this encounter (statuses as of 03/30/2022) [facility] of Past illness Narrative* Problem Noted [...] get beds in local hospital, transferred to [facility]. Anemia due to GI blood loss 10/24/201903/05 [...] 12/22/2018 Prosthetic aortic valve stenosis 11/19/2016 12/22/2018 [facility] current use of antiarrhythmic medical therapy 10/20/2016 [...] diarrhea. Patient had her eyes examined in [place] this year and was told that she [...] of this encounter (statuses as of 04/06/2022) [facility] of Past illness Narrative* Problem Noted [...] get beds in local hospital, transferred to [facility]. Anemia due to GI blood loss 10/24/201903/05 [...] 12/22/2018 Prosthetic aortic valve stenosis 11/19/2016 12/22/2018 [facility] current use of antiarrhythmic medical therapy 10/20/2016 [...] diarrhea. Patient had her eyes examined in [place] this year and was told that she [...] of this encounter (statuses as of 04/07/2022) [facility] of Past illness Narrative* Problem Noted [...] get beds in local hospital, transferred to [facility]. Anemia due to GI blood loss 10/24/201903/05 [...] 12/22/2018 Prosthetic aortic valve stenosis 11/19/2016 12/22/2018 [facility] current use of antiarrhythmic medical therapy 10/20/2016 [...] diarrhea. Patient had her eyes examined in [place] this year and was told that she [...] of this encounter (statuses as of 04/08/2022) [facility] Past illness Narrative* Problem Noted [...] get beds in local hospital, transferred to [facility]. Anemia due to GI blood loss 10/24/201903/05 [...] 12/22/2018 Prosthetic aortic valve stenosis 11/19/2016 12/22/2018 [facility] intermediate current use of antiarrhythmic medical therapy 10/20/2016 [...] diarrhea. Patient had her eyes examined in [place] this year and was told that she [...] of this encounter (statuses as of 04/09/2022) [facility] Past illness Narrative* Problem Noted [...] get beds in local hospital, transferred to [facility]. Anemia due to GI blood loss 10/24/201903/05 [...] 12/22/2018 Prosthetic aortic valve stenosis 11/19/2016 12/22/2018 [facility] current use of antiarrhythmic medical therapy 10/20/2016 [...] diarrhea. Patient had her eyes examined in [place] this year and was told that she [...] of this encounter (statuses as of 04/17/2022) [facility] Past illness Narrative* Problem Noted [...] get beds in local hospital, transferred to [facility]. Anemia due to GI blood loss 10/24/201903/05 [...] 12/22/2018 Prosthetic aortic valve stenosis 11/19/2016 12/22/2018 [facility] current use of antiarrhythmic medical therapy 10/20/2016 [...] diarrhea. Patient had her eyes examined in [place] this year and was told that she [...] of this encounter (statuses as of 04/20/2022) [facility] illness Narrative* Problem Noted [...] get beds in local hospital, transferred to [facility]. Anemia due to GI blood loss 10/24/201903/05 [...] 12/22/2018 Prosthetic aortic valve stenosis 11/19/2016 12/22/2018 [facility] intermediate current use of antiarrhythmic medical therapy 10/20/2016 [...] diarrhea. Patient had her eyes examined in [place] this year and was told that she [...] of this encounter (statuses as of 04/22/2022) [facility] Past illness Narrative* Problem Noted [...] get beds in local hospital, transferred to [facility]. Anemia due to GI blood loss 10/24/201903/05 [...] 12/22/2018 Prosthetic aortic valve stenosis 11/19/2016 12/22/2018 [facility] current use of antiarrhythmic medical therapy 10/20/2016 [...] diarrhea. Patient had her eyes examined in [place] this year and was told that she [...] of this encounter (statuses as of 04/23/2022) [facility] Past illness Narrative* Problem Noted [...] get beds in local hospital, transferred to [facility]. Anemia due to GI blood loss 10/24/201903/05 [...] 12/22/2018 Prosthetic aortic valve stenosis 11/19/2016 12/22/2018 [facility] intermediate current use of antiarrhythmic medical therapy 10/20/2016 [...] diarrhea. Patient had her eyes examined in [place] this year and was told that she [...] of this encounter (statuses as of 04/28/2022) [facility] Past illness Narrative* Problem Noted [...] get beds in local hospital, transferred to [facility]. Anemia due to GI blood loss 10/24/201903/05 [...] 12/22/2018 Prosthetic aortic valve stenosis 11/19/2016 12/22/2018 [facility] intermediate current use of antiarrhythmic medical therapy 10/20/2016 [...] diarrhea. Patient had her eyes examined in [place] this year and was told that she [...] of this encounter (statuses as of 05/15/2022) [facility] Past illness Narrative* Problem Noted [...] get beds in local hospital, transferred to [facility]. Anemia due to GI blood loss 10/24/201903/05 [...] 12/22/2018 Prosthetic aortic valve stenosis 11/19/2016 12/22/2018 [facility] intermediate current use of antiarrhythmic medical therapy 10/20/2016 [...] diarrhea. Patient had her eyes examined in [place] this year and was told that she [...] of this encounter (statuses as of 05/25/2022) [facility] illness Narrative* Problem Noted [...] get beds in local hospital, transferred to [facility]. Anemia due to GI blood loss 10/24/201903/05 [...] 12/22/2018 Prosthetic aortic valve stenosis 11/19/2016 12/22/2018 [facility] intermediate current use of antiarrhythmic medical therapy 10/20/2016 [...] diarrhea. Patient had her eyes examined in [place] this year and was told that she [...] of this encounter (statuses as of 05/29/2022) [facility] illness Narrative* Problem Noted [...] get beds in local hospital, transferred to [facility]. Anemia due to GI blood loss 10/24/201903/05 [...] 12/22/2018 Prosthetic aortic valve stenosis 11/19/2016 12/22/2018 [facility] current use of antiarrhythmic medical therapy 10/20/2016 [...] diarrhea. Patient had her eyes examined in [place] this year and was told that she [...] of this encounter (statuses as of 07/06/2022) [facility] Narrative* Problem Noted [...] get beds in local hospital, transferred to [facility]. Anemia due to GI blood loss 10/24/201903/05 [...] 12/22/2018 Prosthetic aortic valve stenosis 11/19/2016 12/22/2018 [facility] intermediate current use of antiarrhythmic medical therapy 10/20/2016 [...] diarrhea. Patient had her eyes examined in [place] this year and was told that she [...] of this encounter (statuses as of 07/09/2022) [facility] Narrative* Problem Noted [...] get beds in local hospital, transferred to [facility]. Anemia due to GI blood loss 10/24/201903/05 [...] 12/22/2018 Prosthetic aortic valve stenosis 11/19/2016 12/22/2018 [facility] current use of antiarrhythmic medical therapy 10/20/2016 [...] diarrhea. Patient had her eyes examined in [place] this year and was told that she [...] of this encounter (statuses as of 07/22/2022) [facility] Narrative* Problem Noted [...] get beds in local hospital, transferred to [facility]. Anemia due to GI blood loss 10/24/201903/05 [...] 12/22/2018 Prosthetic aortic valve stenosis 11/19/2016 12/22/2018 [facility] intermediate current use of antiarrhythmic medical therapy 10/20/2016 [...] diarrhea. Patient had her eyes examined in [place] this year and was told that she [...] of this encounter (statuses as of 07/22/2022) [facility] Narrative* Problem Noted [...] get beds in local hospital, transferred to [facility]. Anemia due to GI blood loss 10/24/201903/05 [...] 12/22/2018 Prosthetic aortic valve stenosis 11/19/2016 12/22/2018 [facility] intermediate current use of antiarrhythmic medical therapy 10/20/2016 [...] diarrhea. Patient had her eyes examined in [place] this year and was told that she [...] of this encounter (statuses as of 09/01/2022) [facility] Narrative* Problem Noted [...] get beds in local hospital, transferred to [facility]. Anemia due to GI blood loss 10/24/201903/05 [...] 12/22/2018 Prosthetic aortic valve stenosis 11/19/2016 12/22/2018 [facility] current use of antiarrhythmic medical therapy 10/20/2016 [...] diarrhea. Patient had her eyes examined in [place] this year and was told that she [...] of this encounter (statuses as of 09/27/2022) [facility] Narrative* Problem Noted [...] get beds in local hospital, transferred to [facility]. Anemia due to GI blood loss 10/24/201903/05 [...] 12/22/2018 Prosthetic aortic valve stenosis 11/19/2016 12/22/2018 em[facility] intermediate current use of antiarrhythmic medical therapy 10/20/2016 [...] diarrhea. Patient had her eyes examined in [place] this year and was told that she [...] of this encounter (statuses as of 09/28/2022) [facility] Narrative* Problem Noted [...] get beds in local hospital, transferred to [facility]. Anemia due to GI blood loss 10/24/201903/05 [...] 12/22/2018 Prosthetic aortic valve stenosis 11/19/2016 12/22/2018 [facility] current use of antiarrhythmic medical therapy 10/20/2016 [...] diarrhea. Patient had her eyes examined in [place] this year and was told that she [...] of this encounter (statuses as of 09/29/2022) [facility] Narrative* Problem Noted [...] get beds in local hospital, transferred to [facility]. Anemia due to GI blood loss 10/24/201903/05 [...] 12/22/2018 Prosthetic aortic valve stenosis 11/19/2016 12/22/2018 emt intermediate current use of antiarrhythmic medical therapy 10/20/2016 [...] diarrhea. Patient had her eyes examined in [place] this year and was told that she [...] of this encounter (statuses as of 10/07/2022) [facility] Narrative* Problem Noted Date Resolved Date Acute on chronic systolic heart failure 03/19/20 22 03/22/2022 Melena 02/22/2022 02/24/2022 Acute kidney injury 02/22/2022 02/24/2022 Encounter for support and coordination of transi tion of care 02/15/2021 09/12/2021 Overview: 02/13/[address] Fegruson's office following gallbladder ultrasound demonstrating sludge. Admitted [...] get beds in local hospital, transferred to [facility]. Anemia due to GI blood loss 10/24/201903/05 [...] 12/22/2018 Prosthetic aortic valve stenosis 11/19/2016 12/22/2018 emt intermediate current use of antiarrhythmic medical therapy 10/20/2016 [...] diarrhea. Patient had her eyes examined in [place] this year and was told that she [...] of this encounter (statuses as of 12/29/2022) [place] [id number] History of Past illness Narrative* Problem Noted [...] get beds in local hospital, transferred to [facility]. Anemia due to GI blood loss 10/24/2019 [...] 12/22/2018 Prosthetic aortic valve stenosis 11/19/2016 12/22/2018 emt intermediate current use of ant iarrhythmic medical therapy [...] diarrhea. Patient had her eyes examined in [place] this year and was told that she [...] of this encounter (statuses as of 01/09/2023) [facility] Narrative* Problem Noted [...] get beds in local hospital, transferred to [facility]. Anemia due to GI blood loss 10/24/2019 [...] 12/22/2018 Prosthetic aortic valve stenosis 11/19/2016 12/22/2018 [facility] current use of ant iarrhythmic medical therapy [...] diarrhea. Patient had her eyes examined in [place] this year and was told that she [...] of this encounter (statuses as of 01/28/2023) [facility] Narrative* Problem Noted [...] get beds in local hospital, transferred to [facility]. Anemia due to GI blood loss 10/24/2019 [...] 12/22/2018 Prosthetic aortic valve stenosis 11/19/2016 12/22/2018 [facility] current use of ant iarrhythmic medical therapy [...] diarrhea. Patient had her eyes examined in [place] this year and was told that she [...] of this encounter (statuses as of 03/15/2023) [facility] Narrative* Problem Noted [...] get beds in local hospital, transferred to [facility]. Anemia due to GI blood loss 10/24/2019 [...] 12/22/2018 Prosthetic aortic valve stenosis 11/19/2016 12/22/2018 [facility] current use of ant iarrhythmic medical therapy [...] diarrhea. Patient had her eyes examined in [place] this year and was told that she [...] of this encounter (statuses as of 03/28/2023) [facility] Narrative* Problem Noted [...] get beds in local hospital, transferred to [facility]. Anemia due to GI blood loss 10/24/2019 [...] 12/22/2018 Prosthetic aortic valve stenosis 11/19/2016 12/22/2018 [facility] current use of ant iarrhythmic medical therapy [...] diarrhea. Patient had her eyes examined in [place] this year and was told that she [...] of this encounter (statuses as of 05/07/2023) [facility] Narrative* Problem Noted Date Diagnosed Date Resolved Date Acute on chronic systolic heart failure 03/19/2022 03/22/2022 Melena 02/22/2022 02/24/2022 Acute kidney injury 02/22/2022 08/23/20 22 Atrial fibrillation 01/12/2022 04/11/20 23 Encounter [...] get beds in local hospital, transferred to [facility]. Anemia due to GI blood loss 10/24/2019 [...] 12/22/2018 Prosthetic aortic valve stenosis 11/19/2016 12/22/2018 [facility] current use of ant iarrhythmic medical therapy [...] diarrhea. Patient had her eyes examined in [place] this year and was told that she [...] of this encounter (statuses as of 05/07/2023) [facility] Narrative* Problem Noted [...] get beds in local hospital, transferred to [facility]. Anemia due to GI blood loss 10/24/2019 [...] 12/22/2018 Prosthetic aortic valve stenosis 11/19/2016 12/22/2018 emt intermediate current use of ant iarrhythmic medical therapy [...] diarrhea. Patient had her eyes examined in [place] this year and was told that she [...] of this encounter (statuses as of 05/21/2023) [facility] Past illness Narrative* Problem Noted [...] get beds in local hospital, transferred to [facility]. Anemia due to GI blood loss 10/24/2019 [...] 12/22/2018 Prosthetic aortic valve stenosis 11/19/2016 12/22/2018 [facility] current use of ant iarrhythmic medical therapy [...] diarrhea. Patient had her eyes examined in [place] this year and was told that she [...] of this encounter (statuses as of 06/08/2023) [facility] Narrative* Problem Noted [...] get beds in local hospital, transferred to [facility]. Anemia due to GI blood loss 10/24/2019 [...] 12/22/2018 Prosthetic aortic valve stenosis 11/19/2016 12/22/2018 [facility] current use of ant iarrhythmic medical therapy [...] diarrhea. Patient had her eyes examined in [place] this year and was told that she [...] of this encounter (statuses as of 07/05/2023) [facility] Past [facility] Narrative* Problem Noted Date Diagnosed Date Resolved Date Acute on chronic systolic heart failure 03/19/2022 03/22/2022 Melena 02/22/2022 02/24/2022 Acute kidney injury 02/22/2022 02/25/20 Atrial fibrillation 01/12/2022 04/11/20 23 Encounter for [...] get beds in local hospital, transferred to [facility]. Anemia due to GI blood loss 10/24/2019 [...] 12/22/2018 Prosthetic aortic valve stenosis 11/19/2016 12/22/2018 [facility] current use of ant iarrhythmic medical therapy [...] diarrhea. Patient had her eyes examined in [place] this year and was told that she [...] of this encounter (statuses as of 10/15/2023) [facility] of Past illness Narrative* Problem Noted [...] get beds in local hospital, transferred to [facility]. Anemia due to GI blood loss 10/24/2019 [...] 12/22/2018 Prosthetic aortic valve stenosis 11/19/2016 12/22/2018 emt intermediate current use of ant iarrhythmic medical therapy [...] diarrhea. Patient had her eyes examined in [place] this year and was told that she [...] of this encounter (statuses as of 10/16/2023) [facility] of Past illness Narrative* Problem Noted [...] get beds in local hospital, transferred to [facility]. Anemia due to GI blood loss 10/24/2019 [...] 12/22/2018 Prosthetic aortic valve stenosis 11/19/2016 12/22/2018 emt intermediate current use of ant iarrhythmic medical therapy [...] diarrhea. Patient had her eyes examined in [place] this year and was told that she [...] of this encounter (statuses as of 10/21/2023) [facility] of Present illness Narrative* Gerard Le PA-C - 03/19/2022 10:40 AM EDT 76 year old female with extensive hx AF, CHF, HTN, S/P aortic valve replacemet, s/p Watchman procedure recently off coumadin c/o leg swelling bilaterally over last 4-5 days. Flew home from [place] last night. Did get up and walk several times during flight. . SOB x 4-5 days, can hardly go more than 10-15 steps without resting. No chest pain. Feels heart racing at times. No syncopal sx. Feels leg are warm, heavy No pain. Got back from [place] 2am this morning Able to lay supine. 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 Lua PACEMAKER 10/2019 PART. HYSTERECTOMY W/WO RMVL OVARIES/TUBES 1974 h/o cervical cancer ovaries remain PAST SURGICAL HISTORY OF 1996 Aortic valve repair, Dr. Apodaca PAST SURGICAL HISTORY OF 2001 [address] 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 ([facility]) History of Pulmonary Embolism Ascending Aorta Dilatation ([facility]) Chronic Bilateral Pleural Effusions Colovesical Fistula Renal Mass, Right Diverticulitis Large Intestine W/O Perforation Or Abscess W/O Bleeding Renal Cell Carcinoma, Right ([facility]) Iron Deficiency Anemia Hypomagnesemia Gastrointestinal Hemorrhage Associated With Acute Gastritis Esophageal Stenosis Dilated Cardiomyopathy ([facility]) Chronic Diastolic Congestive Heart Failure ([facility]) Sss (Sick Sinus Syndrome) ([facility]) Duodenal Ulcer Type 2 Diabetes Mellitus With Diabetic Peripheral Angiopathy Without Gangrene, Without Long-Term Current Use of Insulin ([facility]) Atrial Fibrillation ([facility]) Current Outpatient Medications Medication Sig [...] (TOPEX) X (OR/PROCEDURE) PRSangeeta Gustafson MD [address] [place] at 03/03/22 1149 fentaNYL 50 mcg/mL injection [...] next visit - Goal of BP <130/80 Gerard Le PA-C documented in this encounterUc Health09-01-2022 History of Present illness Narrative* Sheridan Cervantes RN - 03/05/2022 12:39 PM EDT TRANSITION CARE MANAGEMENT (TCM) FOLLOW-UP NOTE Provider Action/FYI Chart reviewed, TCM follow up call deferred due to 03/03 office visit with JASPREET Torres. Summary: Pt discharged from [place] on 02/24. Admitted for: PRINCIPAL DIAGNOSIS: GI bleeding diverticular bleed/acute blood loss anemia Transition Mgr plan for next outreach: Will follow up Signature Sheridan Cervantes RN March 05, 2022 documented in this encounterUc Health08-31-2022 Miscellaneous Notes* Addendum Note - Radha Torres APRN.CNP - 03/04/2022 10:54 AM EDTAddended by: RADHA TORRES on: 03/04/2022 10:54 AM Modules accepted: Orders, SmartSet * Addendum Note - Radha Torres APRN.CNP - 03/04/2022 9:46 AM EDTAddended by: RADHA TORRES on: 03/04/2022 09:46 AM Modules accepted: Orders documented in this encounterUc Health08-30-2022 History of Present illness Narrative* Radha Torres APRN.CNP - 03/03/2022 12:00 PM EDT Images from the original note were not included. [facility] [place] Martha Meléndez Department of Cardiovascular Medicine SECTION OF CARDIAC PACING and ELECTROPHYSIOLOGY OUTPATIENT VISIT DATE March 03, 2022 OUTPATIENT VISIT TYPE ESTABLISHED PRIMARY CARE PHYSICIAN: Gerard Le [address] [place] [address] CHIEF COMPLAINT: Post Watchman follow up HISTORY [...] upper and lower endoscopy were non diagnostic. 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 Lua PACEMAKER 10/2019 PART. HYSTERECTOMY W/WO RMVL OVARIES/TUBES 1974 h/o cervical cancer ovaries remain PAST SURGICAL HISTORY OF 1996 Aortic valve repair, Dr. Apodaca PAST SURGICAL HISTORY OF 2001 [address] Beltrán, [facility] PAST SURGICAL HISTORY OF 2015 clipping [...] yearly in-clinic device checks. Ying Hart RN [place] to Dr. Fay in Dr. Gomez's absence [...] assess as well. - The following is sales representative electric service of measurements of LAXMI dimensions from different [...] upper and lower endoscopy were non diagnostic. [id number] score: 7 (congestive heart failure, hypertension, age [...] INFORMATION: Radha Torres APRN.CNP documented in this encounterUc Health08-30-2022 Nurse Note* Alexandre Avalos RN - 03/03/2022 [...] RN In Department: CARDIOLOGY documented in this encounterUc Health08-29-2022 Miscellaneous Notes* Telephone Encounter - Saima England [...] In Department of CARDIOLOGY. documented in this encounterUc Health08-24-2022 History of Present illness Narrative* Harika Tomas RN - 02/25/2022 2:27 PM EDT TCM Home Visit Referral Source of Stratification: [facility] Admission Status: Discharged Readmission Risk Score: [...] PROGRAM Provider Action/FYI: SUMMARY: Pt discharged from [place] on 02/24. Admitted for: PRINCIPAL DIAGNOSIS: GI bleeding diverticular bleed/acute blood loss anemia Contact made with patient: No - 2nd unsuccessful attempt - end outreach and close encounter Outreach ended Harika LINCOLNN [facility] [phone] * Harika Tomas RN - 02/25/2022 10:14 AM EDT TCM Home Visit Referral Source of Stratification: [facility] Admission Status: Discharged Readmission Risk Score: [...] today or tomorrow SUMMARY: Pt discharged from [place] on 02/24. Admitted for: PRINCIPAL DIAGNOSIS: GI bleeding diverticular bleed/acute blood loss anemia Contact made with patient: No - next outreach attempt will be on next day Outreach ended Harika LOPEZ [facility] [phone] documented in this encounterUc Health08-21-2022 History of Past illness Narrative* Problem Noted [...] get beds in local hospital, transferred to [facility]. 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 Patient had her eyes examined in [place] this year and was told that she [...] of this encounter (statuses as of 02/25/2022) [facility] History of Past illness Narrative* Problem Noted [...] get beds in local hospital, transferred to [facility]. 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 Patient had her eyes examined in [place] this year and was told that she [...] of this encounter (statuses as of 03/02/2022) [facility] History of Past illness Narrative* Problem Noted [...] get beds in local hospital, transferred to [facility]. 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 Patient had her eyes examined in [place] this year and was told that she [...] of this encounter (statuses as of 03/03/2022) [facility] History of Past illness Narrative* Problem Noted [...] get beds in local hospital, transferred to [facility]. Anemia 10/24/2019 09/12/2021 Last Assessment & Plan: [...] 12/22/2018 Prosthetic aortic valve stenosis 11/19/2016 12/22/2018 [facility] current use of antiarrhythmic medical therapy 10/20/2016 [...] diarrhea. Patient had her eyes examined in [place] this year and was told that she [...] of this encounter (statuses as of 03/04/2022) [facility] History of Past illness Narrative* Problem Noted [...] get beds in local hospital, transferred to [facility]. 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 Patient had her eyes examined in [place] this year and was told that she [...] of this encounter (statuses as of 03/05/2022) [facility] History of Past illness Narrative* Problem Noted [...] get beds in local hospital, transferred to [facility]. Anemia 10/24/2019 09/12/2021 Last Assessment & Plan: [...] 12/22/2018 Prosthetic aortic valve stenosis 11/19/2016 12/22/2018 [facility] current use of antiarrhythmic medical therapy 10/20/2016 [...] diarrhea. Patient had her eyes examined in [place] this year and was told that she [...] of this encounter (statuses as of 03/11/2022) [facility] of Past illness Narrative* Problem Noted [...] get beds in local hospital, transferred to [facility]. Anemia 10/24/2019 09/12/2021 Last Assessment & Plan: [...] 12/22/2018 Prosthetic aortic valve stenosis 11/19/2016 12/22/2018 [facility] current use of antiarrhythmic medical therapy 10/20/2016 [...] diarrhea. Patient had her eyes examined in [place] this year and was told that she [...] of this encounter (statuses as of 03/20/2022) [facility] of Past illness Narrative* Problem Noted [...] get beds in local hospital, transferred to [facility]. Anemia 10/24/2019 09/12/2021 Last Assessment & Plan: [...] 12/22/2018 Prosthetic aortic valve stenosis 11/19/2016 12/22/2018 [facility] current use of antiarrhythmic medical therapy 10/20/2016 [...] diarrhea. Patient had her eyes examined in [place] this year and was told that she [...] of this encounter (statuses as of 03/20/2022) [facility] History of Past illness Narrative* Problem Noted [...] get beds in local hospital, transferred to [facility]. Renal cell carcinoma 10/24/2019 09/12/2021 Last Assessment [...] 12/22/2018 Prosthetic aortic valve stenosis 11/19/2016 12/22/2018 [facility] current use of antiarrhythmic medical therapy 10/20/2016 [...] diarrhea. Patient had her eyes examined in [place] this year and was told that she [...] of this encounter (statuses as of 03/21/2022) [facility] Miscellaneous Notes* Telephone Encounter - Rojelio Jamison [...] testing. Giovanna Powell RN documented in this encounterUc Health08-19-2022 History of Present illness Narrative* Gerard Le PA-C - 02/20/2022 9:40 AM EDT [...] anxious about potential risk of having to [facility] cruise with family. 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 Lua PACEMAKER 10/2019 PART. HYSTERECTOMY W/WO RMVL OVARIES/TUBES 1974 h/o cervical cancer ovaries remain PAST SURGICAL HISTORY OF 1996 Aortic valve repair, Dr. Apodaca PAST SURGICAL HISTORY OF 2001 [address] Beltrán, [facility] PAST SURGICAL HISTORY OF 2015 clipping [...] - HEMATOCRIT (HCT) - BASIC METABOLIC PNL Gerard Le PA-C documented in this encounterUc Health07-20-2022 Miscellaneous Notes* Telephone Encounter - Deonna Bryant - 01/21/2022 10:30 AM EDT January 21, 2022 Patient Contact Number: [phone] (home) [phone] (cell) Patient last seen within the last year: Yes Reason for Call: Patient called to schedule follow up from Watchman procedure. Order for ABDIEL needs to be placed (can be done by OCC MED PHYSICIAN) and patient should contact office as soon as ABDIEL is done so it can be reviewed (should be done 45 days after the procedure). OCC MED PHYSICIAN: Please place Order for ABDIEL. Admin to request ABDIEL for after 02/26/2022 but before 03/07/2022. Thank you, Deonna Bryant, Admin documented in this encounterUc Health07-18-2022 Miscellaneous Notes* Telephone Encounter - Ivory Graham - 01/19/2022 11:05 AM EDT Call from pharmacy requesting refill. Pending Prescriptions Disp Refills ASPIRIN 81 MG CHEWABLE TABLET 90 tablet 3 Sig: Take 1 tablet by mouth once daily. BRAYAN: No Patient last seen 01/09/2022 Ivory Graham documented in this encounterUc Health07-15-2022 Instructions* Patient Instructions* Gerard Le PA-C - 01/16/2022 10:47 AM EDT [...] keep your stress under control. Published by [employer]. This content is reviewed periodically and is subject to change as new health information becomes available. The information is intended to inform and educate and is not a replacement for medical evaluation, advice, diagnosis or treatment by a healthcare professional. Developed by [employer]. Copyright 2005 [employer] and/or one of its subsidiaries. All Rights Reserved. 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 Lua PACEMAKER 10/2019 PART. HYSTERECTOMY W/WO RMVL OVARIES/TUBES 1974 h/o cervical cancer ovaries remain PAST SURGICAL HISTORY OF 1996 Aortic valve repair, Dr. Apodaca PAST SURGICAL HISTORY OF 2001 [address] Beltrán, [facility] PAST SURGICAL HISTORY OF 2016 clipping [...] Resp 16 Wt 64.4 kg (142 lb) IvE240% BMI 25.15 kg/m Pleasant frail adult womanin [...] TABLET - MUPIROCIN 2 % TOPICAL OINTMENT Gerard Le PA-C documented in this encounterUc Health07-08-2022 History of Present illness Narrative* Diane Blanchard [...] discussed with Physician, nurse practitioner or Physician supply assistant upon discharge Instructions for transmitting EKG to [facility] 3 month follow up instructions Contact number for information and questions Patient Evaluation: Verbalizes understanding Follow Up Plan: Follow up as directed by MD. Supplemental Material Given: Written Material Patient education regarding radiation exposure. Instructed By Diane Blanchard RN. In Department of CARDIOLOGY. documented in this encounterUc Health07-08-2022 Instructions* Patient Instructions* Emilia Diallo MD - 01/09/2022 2:19 PM EDT Proceed with your Watchman evaluation. Consider discussing a hematology evaluation in addition to further GI work up as appropriate. Follow up with Dr. Burdick as planned. Follow up with PCP re: prevention in addition to follow up of the kidney mass that was identified on the CT. documented in this encounterUc Health07-08-2022 History of Present illness Narrative* Emilia Diallo MD - 01/09/2022 2:15 PM EDT Images from the original note were not included. [facility] [place] [facility] Meléndez Department of Cardiovascular Medicine SECTION OF CLINICAL CARDIOLOGY OUTPATIENT VISIT DATE January 09, 2022 OUTPATIENT VISIT TYPE CON PRIMARY CARE PHYSICIAN: Gerard Le [address] [place] [address] REFERRING PHYSICIAN: Chandler Swan [address] [facility] [id number] CHIEF COMPLAINT: Shared decision making for Watchman [...] 7.7. Received 2 unit(s) PRBCs last week. [id number] score: 7 (congestive heart failure, hypertension, age >/=75, diabetes, vascular disease, female) - on Xarelto 15 mg HASBLED score: 4 (HTN, CKD, bleeding, elderly) She complains of chronic shortness of breath and fatigue. She denies chest pain, orthopnea, cough, edema, palpitations, PND, lightheadedness or syncope. Nursing Intake : Ms. Berta Sanches is a 76 year old female from [place], [place] here today for preopeartive cardiovascular evaluation [...] Bilateral pneumonia No date: Cancer of cervix ([facility]) No date: Cervical cancer ([facility]) Comment: 197206/01/2015: Chest pain Comment: negative work up with nuclar stress No date: CHF (congestive heart failure) ([facility]) No date: Cholesteatoma of right ear Comment: surgical removal No date: Chronic mastoiditis of left side No date: Diabetes ([facility]) No date: Diabetes ([facility]) No date: GERD (gastroesophageal reflux disease) No [...] Surgical History: 2019: ABLATION Comment: for afib 2003, 2003,04/30/15: ANESTHESIA EXTERNAL MIDDLE & INNER EAR W/BX NOS 2018: CARDIOVERSION 02/28/2021: EGD Comment: 02/28/2021: ESOPHAGOGASTRODUODENOSCOPY TRANSORAL DIAGNOSTIC 07/18/2019: LAP COLECTOMY, SIGMOID W/LOGGER DRIVING HORSES; N/A Comment: for colovesicle fistula - Dr. Mosley 04/30/2015: MASTOIDECTOMY; Right Comment: cholesteatoma removed, Dr. Lua 10/2019: PACEMAKER 1974: PART. HYSTERECTOMY W/WO RMVL OVARIES/TUBES Comment: h/o cervical cancer ovaries remain 1996: PAST SURGICAL HISTORY OF Comment: Aortic valve repair, Dr. Apodaca 2001: PAST SURGICAL HISTORY OF Comment: [address] Beltrán, [facility] 2016: PAST SURGICAL HISTORY OF Comment: [...] Abs Lymph 1.00 - 4.00 k/uL 1.82 [place]% % 14.0 Abs [place] <0.87 k/uL 1.27 (H) Eosin% % 1.9 [...] etiology while on Xarelto. Unknown etiology. Her [id number] is elevated at 7 portenidng an increased risk of CVA and her HASBLED score is elevated. It is reasonable to consider Watchman procedure as after undergoing a LAXMI closure procedure, she will not need [facility] anticoagulation which eliminates anticoagulation side effects and major bleeding risk. After today's visit with Mrs. Sanches, which was dedicated solely for shared decision making visitregarding LAXMI closure device, she decided to proceed with the LAXMI appendage closure procedure scheduled [facility] the [facility]. Of note, she should continue with her [...] 09, 2022, 5:59 PM documented in this encounterUc Health07-01-2022 History and physical note * Chai Encinas [...] AND PHYSICAL Berta Sanches 1945 REFERRING PHYSICIAN: Gerard Le PA-C CHIEF COMPLAINT: Consult (blood in [...] likely gallbladder issues. When she presented to [facility] on February 13, 2018 she was [...] She underwent upper and lower endoscopy at [facility] also for anemia on October 26, [address] Drummond. She was found to have erosive gastritis. 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 Lua PACEMAKER 10/2019 PART. HYSTERECTOMY W/WO RMVL OVARIES/TUBES 1974 h/o cervical cancer ovaries remain PAST SURGICAL HISTORY OF 1996 Aortic valve repair, Dr. Apodaca PAST SURGICAL HISTORY OF 2001 [address] Beltrán, [facility] PAST SURGICAL HISTORY OF 2015 clipping [...] entered by the nurse and reviewed by wy Nursing Notes: Stacie Mancera LPN 01/01/2022 9:48 [...] her for urgent upper endoscopy tomorrow in [place]. Diagnoses: (D50.0) Anemia, blood loss (primary encounter diagnosis) (D62) Acute blood loss anemia (R19.5) Heme + stool (K82.8) Sludge in gallbladder (R10.13) Epigastric pain (K26.4) Duodenal ulcer with hemorrhage My findings have been communicated to Gerard Le PA-C via shared medical record. This note will be forwarded to Gerard Le PA-C. Return to Clinic: The patient is instructed to follow-up with me as needed. Chai Encnias MD documented in this encounterUc Health06-30-2022 Miscellaneous Notes* Telephone Encounter - Yessenia Monroe - 01/01/2022 10:27 AM EDT 01-02-2022 egd reyes documented in this encounterUc Health06-30-2022 History of Present illness Narrative* Chai Encinas MD - 01/01/2022 9:52 AM EDT HISTORY AND PHYSICAL Berta Manzanares Verónica 1945 REFERRING PHYSICIAN: Gerard Le PA-C CHIEF COMPLAINT: Consult (blood in [...] likely gallbladder issues. When she presented to [facility] department on February 13, 2018 she was [...] She underwent upper and lower endoscopy at [facility] also for anemia on October 26, [address] Drummond. She was found to have erosive gastritis. 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 Lua PACEMAKER 10/2019 PART. HYSTERECTOMY W/WO RMVL OVARIES/TUBES 1973 h/o cervical cancer ovaries remain PAST SURGICAL HISTORY OF 1996 Aortic valve repair, Dr. Apodaca PAST SURGICAL HISTORY OF 2001 [address] Beltrán, [facility] PAST SURGICAL HISTORY OF 2016 clipping [...] entered by the nurse and reviewed by wy Nursing Notes: Stacie Mancera LPN 01/01/2022 9:48 [...] her for urgent upper endoscopy tomorrow in [place]. Diagnoses: (D50.0) Anemia, blood loss (primary encounter diagnosis) (D62) Acute blood loss anemia (R19.5) Heme + stool (K82.8) Sludge in gallbladder (R10.13) Epigastric pain (K26.4) Duodenal ulcer with hemorrhage My findings have been communicated to Gerard Le PA-C via shared medical record. This note will be forwarded to Gerard Le PA-C. Return to Clinic: The patient is instructed to follow-up with me as needed. Chai Encinas MD documented in this encounterUc Health06-30-2022 Nurse Note* Stacie Mancera, GOPI - 01/01/2022 [...] 2019 Stacie Mancera LPN documented in this encounterUc Health06-27-2022 Miscellaneous Notes* Telephone Encounter - Gerard Le PA-C - 12/29/2021 4:19 PM EDT Thanks for the help! Gerard Le PA-C * Telephone Encounter - Sheree Savage Ma - 12/29/2021 3:57 PM EDT Patient is scheduled for for transfusion of 2 units packed red blood cells at [facility] for 8 am tomorrow. [facility] documented in this encounterUc Health06-25-2022 Miscellaneous Notes* Telephone Encounter - Sheree Savage [...] 9:51 AM EDT Patient called to triage message. Patient reports feeling much better today [...] couple of days she will go to [facility] ED. Reason for Disposition [1] MILD weakness [...] since yesterday. Protocols used: WEAKNESS (GENERALIZED) AND [id number] documented in this encounterUc Health06-25-2022 Miscellaneous Notes* Telephone Encounter - Radha Pyle RN - 12/27/2021 9:57 AM EDT Triage completed 12/27 for [facility] symptoms. See triage encounter. Radha Pyle RN documented in this encounterUc Health06-23-2022 Miscellaneous Notes* Telephone Encounter - Marleen Schaffer [...] EDT December 25, 2021 Patient Contact Number: [phone] (home) [phone] (cell) Patient last seen within the last year: Yes Reason for Call: Medication Issue/Question: Patient states that she is supposed to decrease medication in preparation of surgery in two weeks, but she is having symptoms and is having difficulty tolorating. Thank you, Marisol Page documented in this encounterUc Health06-20-2022 Miscellaneous Notes* Telephone Encounter - Brittany Norton [...] Sigifredo Rivera LPN * Telephone Encounter - Gerard Le PA-C - 12/19/2021 5:12 PM EDT Please advise stool is positive for blood. Recheck CBC next week. Consult Dr. Delgado (active consult) again regarding anemia with heme positive stool, need for endoscopy. Patient is to have watchman procedure 01/12/2022 so we will need schedules to follow. documented in this encounterUc Health06-13-2022 History of Present illness Narrative* Marisol Cook RT(R) - 12/15/2021 11:00 AM EDT Radiology [...] 15, 2021 11:04 AM documented in this encounterUc Health06-13-2022 History of Present illness Narrative* Gerard Le PA-C - 12/15/2021 9:00 AM EDT [...] bilateral inflow resting waveforms. 11/26/2021 f/u vascular OCC MED PHYSICIAN Na Ramirez 10/24/2018 US carotids: RIGHT: CCA plaques w/o significant hemodynamic stenosis, ICA 20-39%, VA patent w/antegrade. 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 Lua PACEMAKER 10/2019 PART. HYSTERECTOMY W/WO RMVL OVARIES/TUBES 1974 h/o cervical cancer ovaries remain PAST SURGICAL HISTORY OF 1996 Aortic valve repair, Dr. Apodaca PAST SURGICAL HISTORY OF 2001 2001 and [address] Beltrán, [facility] PAST SURGICAL HISTORY OF 2016 clipping [...] Impairment Associated With Type 2 Diabetes Mellitus ([facility]) History of Pulmonary Embolism Ascending Aorta Dilatation (Hcc) Chronic Bilateral Pleural Effusions Colovesical Fistula Renal Mass, Right Diverticulitis Large Intestine W/O Perforation Or Abscess W/O Bleeding Renal Cell Carcinoma, Right (Hcc) Iron Deficiency Anemia Hypomagnesemia Gastrointestinal Hemorrhage Associated With Acute Gastritis Esophageal Stenosis Dilated Cardiomyopathy (Hcc) Chronic Diastolic Congestive Heart Failure (Hcc) Sss (Sick Sinus Syndrome) ([facility]) Duodenal Ulcer Type 2 Diabetes Mellitus With Diabetic Peripheral Angiopathy Without Gangrene, Without Long-Term Current Use of Insulin ([facility]) Current Outpatient Medications Medication Sig [...] 18. PAD (peripheral artery disease) ([facility]) - ICD9: 443.9, ICD10: I73.9 19. Type 2 diabetes mellitus with diabetic peripheral angiopathy without gangrene, without long-term current use of insulin ([facility]) - ICD9: 250.70, 443.81, ICD10: E11.51 Controlled. [...] - XR HIP GENERAL 3V PELV/AP/LAT LEFT Gerard Le PA-C documented in this encounterUc Health06-02-2022 Miscellaneous Notes* Telephone Encounter - Marleen Schaffer [...] EDT December 03, 2021 Patient Contact Number: [phone] (home) [phone] (cell) Patient last seen within the last [...] you, Deonna Bryant, Admin documented in this encounterUc Health05-26-2022 History of Present illness Narrative* Dagmar Thomas - 11/27/2021 12:36 PM EDT set documented in this encounterUc Health05-25-2022 History of Present illness Narrative* Na Ramirez APRN.JASPREET - 11/26/2021 9:27 AM EDT VASCULAR SURGERY ESTABLISHED PATIENT SERVICE DATE: 11/26/2021 SERVICE TIME: 9:29 AM PRIMARY CARE PHYSICIAN: Gerard Le PA-C SUBJECTIVE HISTORY OF PRESENT ILLNESS: 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 Lua PACEMAKER 10/2019 PART. HYSTERECTOMY W/WO RMVL OVARIES/TUBES 1973 h/o cervical cancer ovaries remain PAST SURGICAL HISTORY OF 1996 Aortic valve repair, Dr. Apodaca PAST SURGICAL HISTORY OF 2001 [address] Beltrán, [facility] PAST SURGICAL HISTORY OF 2015 clipping [...] ambulation Time spent: 45 [facility] Miscellaneous Notes* Telephone Encounter - Marycruz Olguin [...] encounter? yes Marycruz Olguin documented [facility] this encounterU[facility]03-24-2022 Miscellaneous Notes* Telephone Encounter - Sigifredo Monge [...] to cancel the procedure on 09/29 in [place]. She thought this was cancelled about a month ago when she received a call. She stated she is so sorry. documented in this encounterUc [facility]03-22-2022 Miscellaneous Notes* Telephone Encounter - Inga Pineda [...] procedure. Patient stated understanding. documented in this encounterUc [facility]08-14-2021 History of Past illness Narrative* Problem Noted [...] get beds in local hospital, transferred to [facility]. 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 Patient had her eyes examined in [place] this year and was told that she [...] of this encounter (statuses as of 09/23/2021) [facility] of Past illness Narrative* Problem Noted [...] get beds in local hospital, transferred to [facility]. Anemia 10/24/2019 09/12/2021 Last Assessment & Plan: [...] 12/22/2018 Prosthetic aortic valve stenosis 11/19/2016 12/22/2018 [facility] current use of antiarrhythmic medical therapy 10/20/2016 [...] diarrhea. Patient had her eyes examined in [place] this year and was told that she [...] of this encounter (statuses as of 09/26/2021) [facility] of Past illness Narrative* Problem Noted [...] get beds in local hospital, transferred to [facility]. 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 Patient had her eyes examined in [place] this year and was told that she [...] of this encounter (statuses as of 10/22/2021) [facility] of Past illness Narrative* Problem Noted [...] get beds in local hospital, transferred to [facility]. 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 Patient had her eyes examined in [place] this year and was told that she [...] of this encounter (statuses as of 11/17/2021) [facility] of Past illness Narrative* Problem Noted [...] get beds in local hospital, transferred to [facility]. 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 Patient had her eyes examined in [place] this year and was told that she [...] of this encounter (statuses as of 11/27/2021) [facility] of Past illness Narrative* Problem Noted [...] get beds in local hospital, transferred to [facility]. Anemia 10/24/2019 09/12/2021 Last Assessment & Plan: [...] 12/22/2018 Prosthetic aortic valve stenosis 11/19/2016 12/22/2018 [facility] current use of antiarrhythmic medical therapy 10/20/2016 [...] diarrhea. Patient had her eyes examined in [place] this year and was told that she [...] of this encounter (statuses as of 11/27/2021) [facility] of Past illness Narrative* Problem Noted [...] get beds in local hospital, transferred to [facility]. Anemia 10/24/2019 09/12/2021 Last Assessment & Plan: [...] 12/22/2018 Prosthetic aortic valve stenosis 11/19/2016 12/22/2018 [facility] current use of antiarrhythmic medical therapy 10/20/2016 [...] diarrhea. Patient had her eyes examined in [place] this year and was told that she [...] of this encounter (statuses as of 12/04/2021) [facility] of Past illness Narrative* Problem Noted [...] get beds in local hospital, transferred to [facility]. Anemia 10/24/2019 09/12/2021 Last Assessment & Plan: [...] 12/22/2018 Prosthetic aortic valve stenosis 11/19/2016 12/22/2018 [facility] current use of antiarrhythmic medical therapy 10/20/2016 [...] diarrhea. Patient had her eyes examined in [place] this year and was told that she [...] of this encounter (statuses as of 12/04/2021) [facility] illness Narrative* Problem Noted [...] get beds in local hospital, transferred to [facility]. 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 Patient had her eyes examined in [place] this year and was told that she [...] of this encounter (statuses as of 12/13/2021) [facility] illness Narrative* Problem Noted [...] get beds in local hospital, transferred to [facility]. 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 Patient had her eyes examined in [place] this year and was told that she [...] of this encounter (statuses as of 12/15/2021) [facility] illness Narrative* Problem Noted [...] get beds in local hospital, transferred to [facility]. 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 Patient had her eyes examined in [place] this year and was told that she [...] of this encounter (statuses as of 12/25/2021) [facility] Narrative* Problem Noted [...] get beds in local hospital, transferred to [facility]. 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 Patient had her eyes examined in [place] this year and was told that she [...] of this encounter (statuses as of 12/27/2021) [facility] Narrative* Problem Noted [...] get beds in local hospital, transferred to [facility]. 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 Patient had her eyes examined in [place] this year and was told that she [...] of this encounter (statuses as of 12/27/2021) [facility] Narrative* Problem Noted [...] get beds in local hospital, transferred to [facility]. 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 Patient had her eyes examined in [place] this year and was told that she [...] of this encounter (statuses as of 12/29/2021) [facility] Narrative* Problem Noted [...] get beds in local hospital, transferred to [facility]. 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 Patient had her eyes examined in [place] this year and was told that she [...] of this encounter (statuses as of 01/01/2022) [facility] Narrative* Problem Noted [...] get beds in local hospital, transferred to [facility]. Anemia 10/24/2019 09/12/2021 Last Assessment & Plan: [...] 12/22/2018 Prosthetic aortic valve stenosis 11/19/2016 12/22/2018 [facility] current use of antiarrhythmic medical therapy 10/20/2016 [...] diarrhea. Patient had her eyes examined in [place] this year and was told that she [...] of this encounter (statuses as of 01/03/2022) [facility] Narrative* Problem Noted [...] get beds in local hospital, transferred to [facility]. Anemia 10/24/2019 09/12/2021 Last Assessment & Plan: [...] 12/22/2018 Prosthetic aortic valve stenosis 11/19/2016 12/22/2018 [facility] current use of antiarrhythmic medical therapy 10/20/2016 [...] diarrhea. Patient had her eyes examined in [place] this year and was told that she [...] of this encounter (statuses as of 01/07/2022) [facility] Narrative* Problem Noted [...] get beds in local hospital, transferred to [facility]. 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 Patient had her eyes examined in [place] this year and was told that she [...] of this encounter (statuses as of 01/09/2022) [facility] Narrative* Problem Noted [...] get beds in local hospital, transferred to [facility]. 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 Patient had her eyes examined in [place] this year and was told that she [...] of this encounter (statuses as of 01/09/2022) [facility] Narrative* Problem Noted [...] get beds in local hospital, transferred to [facility]. Anemia 10/24/2019 09/12/2021 Last Assessment & Plan: [...] 12/22/2018 Prosthetic aortic valve stenosis 11/19/2016 12/22/2018 [facility] current use of antiarrhythmic medical therapy 10/20/2016 [...] diarrhea. Patient had her eyes examined in [place] this year and was told that she [...] of this encounter (statuses as of 01/10/2022) [facility] Narrative* Problem Noted [...] get beds in local hospital, transferred to [facility]. Anemia 10/24/2019 09/12/2021 Last Assessment & Plan: [...] 12/22/2018 Prosthetic aortic valve stenosis 11/19/2016 12/22/2018 [facility] current use of antiarrhythmic medical therapy 10/20/2016 09/12/2021 Routine health maintenance 01/08/2014 03/11 /2022 Overview: Had her feet tested for diabetes, [...] diarrhea. Patient had her eyes examined in [place] this year and was told that she [...] of this encounter (statuses as of 01/15/2022) [facility] Narrative* Problem Noted [...] get beds in local hospital, transferred to [facility]. 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 Patient had her eyes examined in [place] this year and was told that she [...] of this encounter (statuses as of 01/16/2022) [facility] Narrative* Problem Noted [...] get beds in local hospital, transferred to [facility]. Anemia 10/24/2019 09/12/2021 Last Assessment & Plan: [...] 12/22/2018 Prosthetic aortic valve stenosis 11/19/2016 12/22/2018 [facility] current use of antiarrhythmic medical therapy 10/20/2016 [...] diarrhea. Patient had her eyes examined in [place] this year and was told that she [...] of this encounter (statuses as of 01/20/2022) [facility] Narrative* Problem Noted [...] get beds in local hospital, transferred to [facility]. 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 Patient had her eyes examined in [place] this year and was told that she [...] of this encounter (statuses as of 01/21/2022) [facility] Narrative* Problem Noted [...] get beds in local hospital, transferred to [facility]. Anemia 10/24/2019 09/12/2021 Last Assessment & Plan: [...] 12/22/2018 Prosthetic aortic valve stenosis 11/19/2016 12/22/2018 [facility] current use of antiarrhythmic medical therapy 10/20/2016 [...] diarrhea. Patient had her eyes examined in [place] this year and was told that she [...] of this encounter (statuses as of 01/23/2022) [facility] Narrative* Problem Noted [...] get beds in local hospital, transferred to [facility]. 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 Patient had her eyes examined in [place] this year and was told that she [...] of this encounter (statuses as of 02/09/2022) [facility] Narrative* Problem Noted [...] get beds in local hospital, transferred to [facility]. Anemia 10/24/2019 09/12/2021 Last Assessment & Plan: [...] 12/22/2018 Prosthetic aortic valve stenosis 11/19/2016 12/22/2018 [facility] current use of antiarrhythmic medical therapy 10/20/2016 [...] diarrhea. Patient had her eyes examined in [place] this year and was told that she [...] of this encounter (statuses as of 02/20/2022) [facility] Narrative* Problem Noted [...] get beds in local hospital, transferred to [facility]. Anemia 10/24/2019 09/12/2021 Last Assessment & Plan: [...] 12/22/2018 Prosthetic aortic valve stenosis 11/19/2016 12/22/2018 [facility] current use of antiarrhythmic medical therapy 10/20/2016 [...] diarrhea. Patient had her eyes examined in [place] this year and was told that she [...] of this encounter (statuses as of 02/23/2022) [facility] Author Dianne Stovall [facility] Note Date/Time January 11, 2025 12:3 0pm [facility] Medical Records Department [address] [place] [address] Instructions for Home/Discharge Instructions 01/11/25 1226 MR#: [id number] Acct: [id number] Name: BERTA SANCHES Rep #:[id number] : 1945 79 From: Dianne Stovall DO PCP: JARROD Cantu Status:ADM I N Discharge Instructions Diet [...] Hernandez MD [Non-Staff] - Deysi Collazo NP, OCC MED PHYSICIAN-C [Primary Care Provider] - Disposition Disposition (needs filled in before D/C Order can be placed): Home, Self Care 01/11/25 1230<Electronically signed by Dianne Stovall DO>Dianne Stovall DO CC: OCC MED PHYSICIAN-C Deysi Collazo; Dr. Jeremy Mcgarry MD; Dr. Radha Heller MD ~ Signed [facility] Work Phone: Evaluation note* Diagnosis PAD (peripheral artery disease) (HCC)- Primary Peripheral vascular disease, unspecified Anemia due to chronic illness Anemia of other chronic disease Atrial fibrillation, unspecified type (HCC) documented in this encounter [facility] note* Diagnosis PAD (peripheral artery disease) (HCC)- Primary Peripheral vascular disease, unspecified PVD (peripheral vascular disease) (HCC) Peripheral vascular disease, unspecified Atrial fibrillation, unspecified type (HCC) documented in this encounter [facility] note* Diagnosis Renal mass, right- Primary Unspecified [...] unspecified type (HCC) [facility] [place] [facility] Diagnosis Anemia, unspecified type- Primary Atrial fibrillation, unspecified type (HCC) [facility] [place] [facility] Diagnosis Anemia, blood loss- Primary Iron [...] unspecified type (HCC) [facility] [place] [facility]* Diagnosis Acute blood loss anemia Acute posthemorrhagic anemia Heme + stool Nonspecific abnormal finding in stool contents Epigastric pain Abdominal pain, epigastric Atrial fibrillation, unspecified type (HCC) documented in this encounter [facility] noteNo assessment information availableWAdena [facility] Work Phone: Evaluation note* Diagnosis Heme positive stool- Primary Nonspecific abnormal finding in stool contents Blood loss anemia Iron deficiency anemia secondary to blood loss (chronic) Atrial fibrillation, unspecified type (HCC) documented in this encounter [facility] note* Diagnosis Atrial fibrillation, unspecified type (HCC)- Primary Gastrointestinal hemorrhage, unspecified gastrointestinal hemorrhage type Anemia due to chronic blood loss Iron deficiency anemia secondary to blood loss (chronic) Other fatigue SOB (shortness of breath) Shortness of breath [facility]* Diagnosis Atrial fibrillation, unspecified type (HCC)- Primary Presence of Watchman left atrial appendage closure device Herpes zoster without complication Herpes zoster without mention of complication [facility]* Diagnosis Paroxysmal atrial fibrillation (HCC)- Primary Atrial fibrillation [facility] [place] [facility]* Diagnosis Paroxysmal atrial fibrillation (HCC)- Primary Atrial fibrillation Presence of Watchman left atrial appendage closure device [facility] [place] [facility]* Diagnosis Rectal bleeding- Primary Hemorrhage of rectum and anus Anemia, blood loss Iron deficiency anemia secondary to blood loss (chronic) Diarrhea, unspecified type [facility]* Diagnosis Longstanding persistent atrial fibrillation (HCC)- Primary Presence of Watchman left atrial appendage closure device [facility] [place] [facility]* Diagnosis Acute combined systolic and diastolic [...] Unspecified essential hypertension [facility]* Diagnosis History of prosthetic aortic valve [...] of cerebral infarction [facility]* Diagnosis Right renal mass Unspecified disorder of kidney and ureter [facility]* Diagnosis Paroxysmal atrial fibrillation (HCC) Atrial fibrillation Presence of Watchman left atrial appendage closure device [facility] [place] [facility]* Diagnosis Hospital discharge follow-up- Primary Other [...] stage 3b (HCC) [facility] Primary hypertension Unspecified essential hypertension [facility] Diagnosis H/O rheumatic heart disease- Primary [...] vascular disease, unspecified [facility]* Diagnosis Lung nodule, solitary- Primary Solitary pulmonary nodule [facility]* Diagnosis Heme + stool Nonspecific abnormal finding in stool contents Epigastric pain Abdominal pain, epigastric Blood loss anemia Iron deficiency anemia secondary to blood loss (chronic) [facility] History of prosthetic aortic valve [...] and unspecified hyperlipidemia [facility] Primary hypertension Unspecified essential hypertension [facility] [place] [facility]* Diagnosis S/P placement of cardiac pacemaker- [...] pulmonary nodule Chronic renal failure, stage 3b (HCC) Gastroesophageal reflux disease without esophagitis Esophageal [...] of insulin (HCC) [facility]* Diagnosis Bilateral carotid artery stenosis- Primary Occlusion and stenosis of carotid artery without mention of cerebral infarction Atherosclerosis of ramona artery of both lower extremities with intermittent claudication (HCC) Atherosclerosis of ramona arteries of the extremities with intermittent claudication [...] Diagnosis PVD (peripheral vascular disease) with claudication (HCC)- Primary Peripheral vascular disease, unspecified documented in [...] kidney and ureter [facility] Closed nondisplaced fracture of fifth metatarsal bone of right foot with routine healing, subsequent encounter- Primary [facility]* Diagnosis Influenza-like illness- Primary Influenza with other respiratory manifestations [facility] Diagnosis 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)- Primary Chronic combined systolic and diastolic heart failure Dilated cardiomyopathy (HCC) Other primary cardiomyopathies [facility]* Diagnosis SSS (sick sinus syndrome) [...] vitamin D deficiency [facility] [place] [facility]* Diagnosis Borderline anemia- Primary Acute systolic congestive heart failure (HCC) Acute systolic heart failure [facility]* Diagnosis Acute systolic CHF (congestive heart failure) (HCC)- Primary Acute systolic heart failure Rheumatic tricuspid valve regurgitation Diseases of tricuspid valve Diuresis excessive Polyuria 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) Chronic combined systolic and diastolic heart failure Dilated cardiomyopathy (HCC) Other primary cardiomyopathies Longstanding persistent atrial fibrillation (HCC) SSS (sick sinus syndrome) ([facility]) Sinoatrial node dysfunction S/P placement of cardiac pacemaker Cardiac pacemaker in situ Acute hip pain, right Piriformis syndrome, right Bilateral knee effusions Effusion of lower leg joint Primary osteoarthritis of both knees Primary localized osteoarthrosis, lower leg documented [facility] [place] [facility]* Diagnosis Acute HFrEF (heart failure with reduced ejection fraction) ([facility])- Primary VHD (valvular heart disease) Endocarditis, valve unspecified, unspecified cause Nonrheumatic tricuspid valve regurgitation Tricuspid valve disorders, specified as nonrheumatic Nonrheumatic mitral valve regurgitation Persistent atrial fibrillation (HCC) Atrial fibrillation Pacemaker Cardiac pacemaker in situ [facility]* Diagnosis Venous insufficiency- Primary Unspecified venous (peripheral) insufficiency [facility]* Diagnosis Venous insufficiency- Primary Unspecified venous (peripheral) insufficiency [facility] [place] [facility]* Diagnosis Iron 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- Primary Iron malabsorption Other specified intestinal malabsorption [facility] [place] [facility]* Diagnosis Acute systolic CHF (congestive heart failure) (HCC)- Primary Acute systolic heart failure Hyponatremia Hyposmolality and/or hyponatremia Hypokalemia Hypopotassemia [facility] Diagnosis Chronic diastolic congestive heart failure (HCC)- Primary Chronic diastolic heart failure Primary hypertension Unspecified essential hypertension SSS (sick sinus syndrome) ([facility]) Sinoatrial node dysfunction Longstanding persistent atrial fibrillation (HCC) Acute systolic CHF (congestive heart failure) (HCC) Acute systolic heart failure [facility]* Diagnosis URI, acute- Primary Acute upper respiratory infections of unspecified site [facility] [place] [facility]* Diagnosis History of prosthetic aortic valve replacement- Primary Heart valve replaced by other means H/O rheumatic heart disease Personal history of other diseases of circulatory system Longstanding persistent atrial fibrillation (HCC) Ascending aorta dilatation (HCC) Thoracic aortic ectasia Dilated cardiomyopathy (HCC) Other primary cardiomyopathies Aortic prosthetic valve regurgitation, subsequent encounter Chronic diastolic (congestive) heart failure (HCC) SSS (sick sinus syndrome) ([facility]) Sinoatrial node dysfunction Primary hypertension Unspecified essential hypertension Hyperlipidemia with target LDL less than 70 Other and unspecified hyperlipidemia S/P placement of cardiac pacemaker Cardiac pacemaker in situ PAD (peripheral artery disease) ([facility]) Peripheral vascular disease, unspecified Acute systolic CHF (congestive heart failure) ([facility]) Acute systolic heart failure documented [facility] this encounter [facility] [place] [facility]* Diagnosis Chronic diastolic congestive heart failure (HCC)- Primary Chronic diastolic heart failure documented in this encounter [facility] [place] [facility]* Diagnosis Chronic kidney disease, unspecified CKD stage- Primary documented in this encounter [facility] note* Diagnosis SOB (shortness of breath)- [...] Coronary atherosclerosis of unspecified type of vessel, ramona or graft SUMMARY Hyperlipidemia LDL goal < [...] systolic heart failure [facility] [place] [facility]* Diagnosis SOB (shortness of breath)- Primary [...] Coronary atherosclerosis of unspecified type of vessel, ramona or graft SUMMARY Hyperlipidemia LDL goal < [...] healing, subsequent encounter [facility] [place]* Diagnosis SOB (shortness of breath)- Primary [...] Coronary atherosclerosis of unspecified type of vessel, ramona or graft SUMMARY Hyperlipidemia LDL goal < [...] right middle finger documented in this encounter [facility] [place] [facility]* Diagnosis SOB (shortness of breath)- Primary [...] Coronary atherosclerosis of unspecified type of vessel, ramona or graft SUMMARY Hyperlipidemia LDL goal < [...] whether acute cor pulmonale present ([facility]) Iron deficiency anemia- Primary Iron deficiency anemia, [...] of left side [facility]* Diagnosis SOB (shortness of breath)- Primary [...] Coronary atherosclerosis of unspecified type of vessel, ramona or graft SUMMARY Hyperlipidemia LDL goal < [...] atrial fibrillation (HCC) [facility] [place] [facility]* Diagnosis SOB (shortness of breath)- Primary [...] Coronary atherosclerosis of unspecified type of vessel, ramona or graft SUMMARY Hyperlipidemia LDL goal < [...] Other follow-up examination documented in this encounter [facility] [place] [facility]* Diagnosis SOB (shortness of breath)- Primary [...] Coronary atherosclerosis of unspecified type of vessel, ramona or graft SUMMARY Hyperlipidemia LDL goal < [...] fibrillation (HCC) Stage 3b chronic kidney disease (HCC) documented in this encounter [facility] note* Diagnosis SOB (shortness of breath)- [...] Coronary atherosclerosis of unspecified type of vessel, ramona or graft SUMMARY Hyperlipidemia LDL goal < [...] Thoracic aortic ectasia Longstanding persistent atrial fibrillation ([facility]) S/P placement of cardiac pacemaker Cardiac pacemaker in situ PAD (peripheral artery disease) Peripheral vascular disease, unspecified 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[facility]) Acute vascular insufficiency of intestine Hyperlipidemia with target LDL less than 70 Other and unspecified hyperlipidemia Primary hypertension Unspecified essential hypertension Bilateral carotid artery stenosis Occlusion and stenosis of carotid artery without mention of cerebral infarction documented [facility] this encounter [facility] [place] [facility]* Diagnosis SOB (shortness of breath)- Primary [...] Coronary atherosclerosis of unspecified type of vessel, ramona or graft SUMMARY Hyperlipidemia LDL goal < [...] diastolic heart failure [facility]* Diagnosis SOB (shortness of breath)- Primary [...] Coronary atherosclerosis of unspecified type of vessel, ramona or graft SUMMARY Hyperlipidemia LDL goal < [...] insufficiency of intestine documented in this encounter [facility] [place] [facility]* Diagnosis SOB (shortness of breath)- Primary [...] Coronary atherosclerosis of unspecified type of vessel, ramona or graft SUMMARY Hyperlipidemia LDL goal < [...] whether acute cor pulmonale present ([facility]) Gastrointestinal hemorrhage, unspecified gastrointestinal hemorrhage type Iron [...] hypertension SSS (sick sinus syndrome) ([facility]) Sinoatrial node dysfunction Longstanding persistent atrial fibrillation ([facility]) [facility]* Diagnosis SOB (shortness of breath)- Primary [...] Coronary atherosclerosis of unspecified type of vessel, ramona or graft SUMMARY Hyperlipidemia LDL goal < [...] insufficiency of intestine [facility]* Diagnosis SOB (shortness of breath)- Primary [...] Coronary atherosclerosis of unspecified type of vessel, ramona or graft SUMMARY Hyperlipidemia LDL goal < [...] and unspecified hyperlipidemia [facility]* Diagnosis Onset Date Resolution Status Admit Date CHF exacerbation acute January 4:29pm [facility] Work Phone: History and physical note Author Radha Heller [facility] Note Date/Time January 07, 2025 4:35p m [facility] Medical Records Department [address] [place] [address] H&P Exam - Hospitalist 01/07/25 1629 MR#: [id number] Acct: [id number] Name: BERTA SANCHES Rep #:[id number] : [...] post Watchman device, congestive heart failure presented [facility] ED 01/07/2025 with several weeks of shortness of breath and bilateral lower extremity edema. Reportedly in September 2023 she had surgery in [place] for some kind of intra-abdominal artery blockageand was placed on Plavix and aspirin and was having difficulties with her heart failure at that time. She came home at the end of October and has been taking herLasix 40 twice daily and spironolactone 12.5 mg twice daily without improvement. She recently followed with her [facility] sales property manager with increase in her Lasix by mouth [...] bowel or bladder changes. ROS otherwise negative [facility] Medical History Anxiety Brain aneurysm Bronchospasm with [...] % (Auto) 59.8, Lymph % (Auto) 24.2, [place] % (Auto) 12.9 H, Eos % (Auto) [...] Sens 71 H*, [place] [address] H 01/07/25 14:54: Troponin T Hi Sens 2 Hr 68 H* Imaging Radiology Impression Chest X-Ray 01/07/25 13:19 IMPRESSION: Findings consistent with mild congestive heart failure. Reading Location: [facility] Assessment & Plan Assessment/Plan (1) CHF exacerbation: [...] Heller MD Charges/Coding Visit Charges Inpatient E&M: 35154 Init Hosp L2 01/07/25 1635 <Electronically signed by Radha Heller MD> Cosigner Signature (if applicable): CC: JARROD Collazo; Dr. Radha Heller MD~ Signed [facility] Work Phone: Hospital Discharge instructionsAdditional Instructions [facility]: [facility] Discharge instructionsAdditional Instructions Follow-up with your doctor next week. Continue to use your bumetanide and your metolazone for your fluid retention. Follow-up with Dr. Flores early next week to ensure you are improving. Return to the emergency department if you are feeling worse.[facility] Work Phone: Hospital Discharge instructionsAdditional Instructions Please keep the Surgicel and pressure wrap on for the next 12 hours. When you removed the wrap the Surgicel may look black and this is normal as it is a chemical reaction with the blood. If the Surgicel does not come off when you remove the pressure wrap you may use a warm washcloth or wash the area to help remove it. Afterwards please use the nonstick gauze pads to cover the wound and help with healing and prevent reopening the skin tears. Please return to the ER should you have any further [facility] Work Phone: Progress note Author Ric Noriega [facility] Note Date/Time April 24, 2025 4 :45pm [facility] [address] [place] [address] OFFICE VISIT Date of Service: 04/24/25 1525 MR#: [id number] Acct: [id number] Name: BERTA SANCHES Rep #: [id number] : 1945 From: Ric champion MD Age/Sex: 79/F [place] [facility] Status: Signed HPI Subjective Date of Service 04/24/25 Chief Complaint Anemia History of Present Illness 79-year-old lady with multiple chronic medical problems including complicated diabetes, chronic kidney failure, valvular heart disease, dyslipidemia, hypertension, pulmonary hypertension, atherosclerotic arterial disease, paroxysmal atrial fibrillation status post Watchman 2024. She has had chronic anemia and has been on long-term oral iron supplement. She is unaware of any external bleeding except from minor bleeding from chronic ulcers on her heels and right leg. In 2024 and while in [place] she was hospitalized underwent a colonoscopy to herknowledge did not show any bleeding lesions, she is unaware whether she had an EGD or not during that hospital stay but she was placed on PPI therapy since. [facility] Medical History Ulcer of left lower extremity with fat layer exposed Anemia of chronic renal failure, stage 3 (moderate) Iron deficiency anemia due to chronic blood loss History of ESBL E. coli infection Type 2 diabetes mellitus Ulcer of left foot with fat layer exposed Ulcer of right foot with fat layer exposed Ulcer of right lower extremity with fat layer exposed Acute on chronic heart failure with preserved ejection fraction Hypokalemia Fatigue Vitamin D deficiency Rheumatoid arthritis Insomnia Mitral valve regurgitation Tachy-pavan syndrome Rheumatic fever GERD (gastroesophageal reflux disease) Chronic renal failure (CRF), stage 3b Cervical cancer Iron deficiency anemia Non-sustained ventricular tachycardia Pulmonary hypertension Rectal bleed Presence of Watchman left atrial appendage closure device Pacemaker Sinus node dysfunction Bradycardia History of cardioversion MONIQUE (acute kidney injury) Skin tear of left forearm without complication [...] infection) Bronchospasm with bronchitis, acute Surgical History Hx of abdominal surgery History of mastoidectomy History of cardiac radiofrequency ablation history skin cancer surgery history bilateral ear surgeries History of hysterectomy H/O aortic valve replacement Family History Father Heart disease High cholesterol Myocardial infarction, Onset Age: 58 Mother Heart disease Social History household members: spouse number of children: 1 current occupational status: retired 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 Unaware of any external bleeding. Intake Vital Signs 03/13/25 14:06 04/24/25 15:27 04/24/25 15:30 Height 5 ft 3 in 5 ft 3 in 5 ft 3 in Weight: 62.369 kg BMI 24.3 BP 152/73 H Blood Pressure Location Lt brachial Position Sitting Respiration 16 Pulse 83 Pulse Source Monitor Temp 97.5 F L Temperature Source Temporal Artery Pulse Oximetry (%) 95 Oxygen Delivery Method room air Intake Is patient in pain?: No Allergies propofol Adverse Reaction (Mild, Verified 04/24/25 15:29) Low blood pressure Medications ?Medication ?Instructions ?Recorded ?Confirmed ?Type atorvastatin 40 mg tablet 40 mg PO DAILY daily 5 04/24/25 History bumetanide 2 mg tablet 2 mg PO BID #60 tabs 5 04/24/25 Rx metoprolol succinate 50 mg 50 mg PO BID 02/05/2504/24 History tablet,extended release 24 hr vitamin B complex 1 tab PO QDAY 02/05/2504/24 History ascorbic acid (vitamin C) 500 mg 500 mg PO QDAY 04/24/25 History tablet aspirin 81 mg tablet,delayed 81 mg PO QDAY 02/14/25 History release (Adult Aspirin Regimen) metolazone 5 mg tablet 5 mg PO QDAY PRN edema 02/1404/24/25 History pantoprazole 40 mg tablet,delayed 40 mg PO QDAY stomac h 02/14/25 04/24/25 History release polysaccharide iron complex 150 mg 150 mg PO QDAY 02/0204/24/25 History iron capsule (Ferrex) potassium chloride 10 mEq 10 meq PO QDAY 02/14/2504/05 History tablet,extended release(part/cryst) spironolactone 25 mg tablet 12.5 mg PO BID daily 02/1404/24/25 History levothyroxine 50 mcg tablet 50 mcg PO DAILY 03/01/25 1 History mirtazapine 7.5 mg tablet 7.5 mg PO QHS 03/01/2504/24 History doxycycline hyclate 100 mg tablet 100 mg PO BID 04/24/25 History Have you fallen in the past year?: No Central Venous Access Central Venous Access: No Laboratory Tests 01/07/25 03/09/25 03/13/25 13:00 10:06 14:38 Hgb 9.4 L 8.9 L 8.7 L Creatinine 1.77 H 1.80 H 2.12 H Est GFR (MDRD) Non-Af 29 L 28 L 23 L TIBC 453 H Iron Saturation 8.6 L Erythropoietin 190.9 H Ferritin 48 Vitamin B12 1100 H 04/24/25 14:40 Hgb 10.6 L Creatinine Est GFR (MDRD) Non-Af TIBC Iron Saturation 30.0 Erythropoietin Ferritin 135 Vitamin B12 Exam Physical Exam Const alert, oriented x3 and no apparent distress General Appearance: frail Coding Level of Care Code Off vis,est,level 3 Exam Problem Focused Diagnoses Anemia of chronic renal failure, stage 3b N18.32; D63.1 Chronic kidney disease stage 3 subtype: stage 3b (GFR 30-44) Iron deficiency anemia due to chronic blood loss D50.0 Assessment and Plan Assessment and Plan (1) Anemia of chronic renal failure, stage 3 (moderate): Status: Chronic Qualifiers: Chronic kidney disease stage 3 subtype: stage 3b (GFR 30-44) Qualified Code(s): N18.32 - Chronic kidney disease, stage 3b; D63.1 - Anemia in chronic kidney disease (2) Iron deficiency anemia due to chronic blood loss: Status: Chronic Plan 79-year-old female with chronic normocytic anemia consistent with anemia of chronic renal failure and chronic disease. She has a history of iron deficiencyanemia and has been on long-term oral iron supplement. She had a significant improvement in her anemia with IV iron in March 2025 and achieved a target hemoglobin above 10 g per DL and presence of anemia of chronic renal failure. Chronic comorbid conditions: Diabetes, dyslipidemia, hypertension, chronic renal failure, atherosclerotic arterial disease, pulmonary hypertension, chronic lower extremities ulcers, paroxysmal atrial fibrillation status post Watchman, valvular heart disease Plan: 1. Continue oral iron with vitamin C supplement long-term and IV iron on an as- needed basis to maintain ferritin at or above 100 and iron saturation at or above 20% in presence of anemia of chronic renal failure. She is on target after IV iron in March 2025 2. Patient is not a candidate for erythrocyte stimulating agent therapy for anemia of chronic renal failure with hemoglobin at 10 g per DL and will be followed up if this changes. 3. Follow-up in 3 months. 4. To consider further GI evaluation by EGD especially if her iron deficiency recurs. Patient was seen with her , impression and plan discussed. Ric Noriega MD Aeronautical Project Engineer, [facility] Divisions of Medical Oncology & Hematology Department of Internal Medicine [facility] [address] [address] This note was generated using a voice recognition system software. Although itwas reviewed by the author prior to finalization, it may still contain incorrectwords, spelling, and punctuation that were not noted when reviewing prior to saving. If a clinically significant typo or inaccurately typed phrase is noted, please notify the author. Clinical Quality Measures Falls Risk Screening/Assistive Devices Have you fallen in the past year?: No 04/24/25 1545 <Electronically signed by Ric smith MD> Date _ Ric Noriega MD Cosigner Signature: Date (if applicable) CC: Dr. Vincent Flores MD ~ [facility] Work Phone: Reason for referral (narrative)* Diagnostic Procedure Only (Routine) - Closed Specialty Diagnoses / Procedures Referred By Leilani ng Referred To Contact XR IMAGING Diagnoses Ischial bursitis of left side Procedures XR HIP GENERAL 3V PELV/AP/LAT LEFT RADEX HIP UNILATERAL WITH PELVIS 2-3 VIEWS Gerard Le PA-C [address] [place] [address] Xr Imaging Referral ID Status Reason Start Date Expiration Date V isits Requested Visits Authorized [id number] Closed Auto-Generate d Referral 12/15/2021 01/14/2023 1 1 [facility] for referral (narrative)* Outpatient Procedure (Routine) - Pending Review Specialty Diagnoses / Procedures Referred By Contyesenia ng Referred To Contact [facility] Diagnoses Acute blood loss anemia Heme + stool Epigastric pain Procedures EGD DIAGNOSTIC ESOPHAGOGASTRODUODENOSC OPY TRANSORAL DIAGNOSTIC REFERRAL TO [facility] FINANCIAL COUNSELOR Chai Encinas MD [address] [place] [address] [facility] [address] [place] [address] Referral ID Status Reason Start Date Expiration Date Visits Requested Visits Authorized [id number] Pending Review Auto-Generated Referral 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 OON Notification Letter Patient Cleared - Admin/Credit Authorizer/D irector advise to proceed 04/01/2022 1 1 T [facility] for referral (narrative)* Outpatient Procedure (Routine) - Closed Specialty Diagnoses / Procedures Referred By Leilani ng Referred To Contact Diagnoses Acute blood loss anemia Heme + stool Epigastric pain Procedures EGD DIAGNOSTIC ESOPHAGOGASTRODUODENOSCOPY TRANSORAL DIAGNOSTIC REFERRAL TO [facility] FINANCIAL COUNSELOR Chai Encinas MD [address] [place] [address] [facility] [address] [place] [address] Referral ID Status Reason Start Date Expiration Date Visits Requested Visits Authorized [id number] Closed Auto-Generated Referral 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 OON Notification Letter Patient Cleared - Admin/Credit Authorizer/D irector advise to proceed 01/01/2022 07/04/2022 1 1 T [facility] for referral (narrative)* Outpatient Procedure (Routine) - Pending Review Specialty Diagnoses / Procedures Referred By Leilani ng Referred To Contact [facility] Diagnoses Paroxysmal atrial fibrillation (HCC) Procedures ECHO TRANSESOPHAGEAL ECHO TRANSESOPHAG R-T 2D W/PRB IMG LINUS I&R Candi Beauchamp, TERI.SCRAP CHARGER [address] [place] [address] [facility] [address] [place] [address] Referral ID Status Reason Start Date Expiration Date Visits Requested Visits Authorized [id number] Pending Review Auto-Generat ed Referral 01/21/2022 01/21/2023 1 1 * Outpatient Procedure (Routine) - Pending Review Specialty Diagnoses / Procedures Referred By Contac t Referred To Contact [facility] Diagnoses Paroxysmal atrial fibrillation (HCC) Procedures ECG COMPLETE ECG ROUTINE ECG W/LEAST 12 LDS W/I&R Candi Beauchamp APRN.SCRAP CHARGER [address], [address] [place] [id number] [facility] [place] [address] [place] [id number] Referral ID Status Reason Start Date Expiration Date Visits Requested Visits Authorized [id number] Pending Review Auto-Generat ed Referral 01/21/2022 01/21/2023 1 1 * Outpatient Procedure (Routine) - Pending Review Specialty Diagnoses / Procedures Referred By Contac t Referred To Contact [facility] Diagnoses Paroxysmal atrial fibrillation (HCC) Procedures ECHO TRANSESOPHAGEAL ECHO TRANSESOPHAG R-T 2D W/PRB IMG ACQUISGlenna I&R Candi Beauchamp APRN.SCRAP CHARGER [address] [facility] [place] [address] [facility] [place] [address] [place] [id number] Referral ID Status Reason Start Date Expiration Date Visits Requested Visits Authorized [id number] Pending Review Auto-Generat ed Referral 01/21/2022 01/21/2023 1 1 [facility] for referral (narrative)* Outpatient Procedure (Routine) - Pending Review Specialty Diagnoses / Procedures Referred By Contac t Referred To Contact [facility] Diagnoses Paroxysmal atrial fibrillation (HCC) Presence of Watchman left atrial appendage closure device Procedures ECHO TRANSESOPHAGEAL ECHO TRANSESOPHAG R-T 2D W/PRB IMG ACQUISJ I&R Candi Beauchamp APRN.SCRAP CHARGER [address], GER[address] [place] [address] [facility] [place] [address] [place] [address] Referral ID Status Reason Start Date Expiration Date Visits Requested Visits Authorized [id number] Pending Review Auto-Generat ed Referral 02/09/2022 02/09/2023 1 1 * Outpatient Procedure (Routine) - Pending Review Specialty Diagnoses / Procedures Referred By Contac t Referred To Contact [facility] Diagnoses Paroxysmal atrial fibrillation (HCC) Presence of Watchman left atrial appendage closure device Procedures ECG COMPLETE ECG ROUTINE ECG W/LEAST 12 LDS W/I&R Candi Beauchamp APRN.SCRAP CHARGER [address], [address] [place] [address] [facility] [place] [address] [place] [address] Referral ID Status Reason Start Date Expiration Date Visits Requested Visits Authorized [id number] Pending Review Auto-Generat ed Referral 02/09/2022 02/09/2023 1 1 * Outpatient Procedure (Routine) - Pending Review Specialty Diagnoses / Procedures Referred By Contac t Referred To Contact [facility] Diagnoses Paroxysmal atrial fibrillation (HCC) Presence of Watchman left atrial appendage closure device Procedures ECHO TRANSESOPHAGEAL ECHO TRANSESOPHAG R-T 2D W/PRB IMG LINUS I&R Candi Beauchamp APRN.SCRAP CHARGER [address], [address] [place] [address] [facility] [place] [address] [place] [address] Referral ID Status Reason Start Date Expiration Date Visits Requested Visits Authorized [id number] Pending Review Auto-Generat ed Referral 02/09/2022 02/09/2023 1 1 [facility] for referral (narrative)* Outpatient Procedure (Routine) - Pending Review Specialty Diagnoses / Procedures [facility]erred To Contact [facility] Diagnoses Longstanding persistent atrial fibrillation (HCC) Presence of Watchman left atrial appendage closure device Procedures ECHO TRANSESOPHAGEAL ECHO TRANSESOPHAG R-T 2D W/PRB IMG ACQUISGlenna I&R Radha Torres APRN.CNP [address] [place] [address] [facility] [address] [place] [address] Referral ID Status Reason Start Date Expiration Date Visits Requested Visits Authorized [id number] Pending Review Auto-Generat ed Referral 03/04/2022 03/04/2023 1 1 [facility] for referral (narrative)* Outpatient Procedure (Routine) - Authorized Specialty Diagnoses / Procedures [facility] Referred To Contact [facility] Diagnoses Aortic prosthetic valve regurgitation, 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) Procedures ECG COMPLETE ECG ROUTINE ECG W/LEAST 12 LDS W/I&R Gerard Le PA-C [address] [place] [address] [id number] [place] [address] Referral ID Status Reason Start Date Expiration Date Visits Requested Visits Authorized [id number] Authorized Auto-Generat ed Referral 03/19/2022 03/19/2023 1 1 [facility] for referral (narrative)* Diagnostic Procedure Only (Routine) - Authorized Specialty Diagnoses / Procedures [facility] Referred To Contact US IMAGING Diagnoses Neoplasm of uncertain behavior of right kidney Procedures US KIDNEY/BLADDER US RETROPERITONEAL REAL TIME W/IMAGE COMPLETE Brayan Chicas MD [address] [place] [address] Us Imaging Referral ID Status Reason Start Date Expiration Date Visits Requested Visits Authorized [id number] Authorized Auto-Generat ed Referral 09/02/2022 05/09/2023 1 1 [facility] for referral (narrative)* Outpatient Procedure (Routine) - Authorized Specialty Diagnoses / Procedures Referred By Contac t Referred To Contact [facility] Diagnoses History of prosthetic aortic valve replacement H/O rheumatic heart disease Procedures ECHO ECHO TTHRC R-T 2D W/WOM-MODE COMPL SPEC&COLR D Carla Burdick MD [address] [place] [address] [address] Referral ID Status Reason Start Date Expiration Date Visits Requested Visits Authorized [id number] Authorized Auto-Generat ed Referral 03/05/2023 09/28/2023 1 1 [facility] for referral (narrative)* Outpatient Procedure (Routine) - Pending Review Specialty Diagnoses / Procedures Referred By Contac t Referred To [facility] Diagnoses 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HCC) Pain in both lower legs Atherosclerosis of ramona artery of both lower extremities with intermittent claudication (HCC) Procedures PVR LEG [facility] NON-INVASIVE PHYSIOLOGIC STUDY EXTREMITY 3 Gerard Borges PA-C [address] [place] [address] [facility] [address] [address] Referral ID Status Reason Start Date Expiration Date Visits Requested Visits Authorized [id number] Pending Review Auto-Generat ed Referral 01/07/2023 01/07/2024 1 1 * Outpatient Procedure (Routine) - Pending Review Specialty Diagnoses / Procedures Referred By Contac t Referred To [facility] Diagnoses 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HCC) Pain in both lower legs Atherosclerosis of ramona artery of both lower extremities with intermittent claudication (HCC) Procedures PVR ANK PRESS [facility] NON-INVAS PHYSIOLOGIC STD EXTREMITY ART 2 LEVEL Gerard Le PA-C [address] [place] [address] [facility] [place] [address] [place] [address] Referral ID Status Reason Start Date Expiration Date Visits Requested Visits Authorized [id number] Pending Review Auto-Generat ed Referral 01/07/2023 01/07/2024 1 1 * Outpatient Procedure (Routine) - Authorized Specialty Diagnoses / Procedures Referred By Contac t Referred To Contact [facility] Diagnoses Bilateral carotid artery stenosis Procedures US CAROTID ARTERIES [facility] DUPLEX SCAN EXTRACRANIAL ART COMPL BI STUDY Gerard Le PA-C [address] [place] [address] [facility] [address] [place] [address] Referral ID Status Reason Start Date Expiration Date Visits Requested Visits Authorized [id number] Authorized Auto-Generat ed Referral 01/07/2023 01/07/2024 1 1 [facility] for referral (narrative)* Diagnostic Procedure Only (Routine) - Closed Specialty Diagnoses / Procedures [facility] Referred To Contact US IMAGING Diagnoses Neoplasm of uncertain behavior of right kidney Procedures US KIDNEY/BLADDER US RETROPERITONEAL REAL TIME W/IMAGE COMPLETE Brayan Chicas MD [address] [place] [address] Us Imaging [facility] Referral ID Status Reason Start Date Expiration Date V isits Requested Visits Authorized [id number] Closed Auto-Generate d Referral 09/02/2022 05/09/2023 1 1 [facility] for referral (narrative)* Outpatient Procedure (Routine) - Authorized Specialty Diagnoses / Procedures Referred By Contac t Referred To Contact [facility] Diagnoses Acute systolic CHF (congestive heart failure) (HCC) Procedures ECHO ECHO TTHRC R-T 2D W/WOM-MODE COMPL SPEC&COLR D Gerard Le PA-C [address] [place] [address] [facility] [address] [place] [address] Referral ID Status Reason Start Date Expiration Date Visits Requested Visits Authorized [id number] Authorized Auto-Generat ed Referral 10/18/2023 10/17/2024 1 1 * Outpatient Procedure (Routine) - Pending Review Specialty Diagnoses / Procedures Referred By Contac t Referred To Contact [facility] Diagnoses Acute systolic CHF (congestive heart failure) (HCC) Procedures ECG COMPLETE ECG ROUTINE ECG W/LEAST 12 LDS W/I&R Gerard Le PA-C [address] [place] [address] [address] Referral ID Status Reason Start Date Expiration Date Visits Requested Visits Authorized [id number] Pending Review Auto-Generat ed Referral 10/18/2023 10/17/2024 1 1 [facility] for referral (narrative)* Outpatient Procedure (Routine) - Closed Specialty Diagnoses / Procedures Referred By Contac t Referred To Contact [facility] Diagnoses Venous insufficiency Procedures US LEG VEIN DVT [facility] DUP-SCAN XTR VEINS COMPLETE BILATERAL STUDY Lars Silva DO [address] [place] [address] [address] Referral ID Status Reason Start Date Expiration Date V isits Requested Visits Authorized [id number] Closed Auto-Generate d Referral 10/14/2023 10/13/2024 1 1 [facility] for referral (narrative)* Diagnostic Procedure Only (Routine) - Closed Specialty Diagnoses / Procedures Referred By Contac t Referred To Contact XR IMAGING Diagnoses Closed nondisplaced fracture of fifth metatarsal bone of right foot with routine healing, subsequent encounter Procedures XR FOOT GENERAL 3V AP/LAT/OBL RIGHT RADEX FOOT COMPLETE MINIMUM 3 VIEWS Gerard Le PA-C [address] [place] [address] [place] [address] Referral ID Status Reason Start Date Expiration Date V isits Requested Visits Authorized [id number] Closed Auto-Generate d Referral 06/01/2023 06/30/2024 1 1 [facility] for referral (narrative)* Diagnostic Procedure Only (Routine) - Closed Specialty Diagnoses / Procedures Referred By Contac t Referred To Contact XR IMAGING Diagnoses Pain of right middle finger Procedures XR DIGIT GENERAL 3V FRONTAL/LAT/OBL RIGHT RADEX FINGR MINIMUM 2 VIEWS Gerard Le PA-C [address] [place] [address] [place] [address] Referral ID Status Reason Start Date Expiration Date V isits Requested Visits Authorized [id number] Closed Auto-Generate d Referral 04/12/2023 05/11/2024 1 1 [facility] for referral (narrative)* Diagnostic Procedure Only (Routine) - Closed Specialty Diagnoses / Procedures Referred By Contac t Referred To Contact XR IMAGING Diagnoses Ischial bursitis of left side Procedures XR HIP GENERAL 3V PELV/AP/LAT LEFT RADEX HIP UNILATERAL WITH PELVIS 2-3 VIEWS Gerard Le PA-C [address] [place] [address] [place] [address] Referral ID Status Reason Start Date Expiration Date V isits Requested Visits Authorized [id number] Closed Auto-Generate d Referral 12/15/2021 01/14/2023 1 1 [facility] for referral (narrative)No reason for referral information availableWAdena [facility] Work Phone: Reason for visit Narrative* Outpatient Procedure (Routine) - Closed Specialty Diagnoses / Procedures Referred By Leilani t Referred To Contact Diagnoses Acute blood loss anemia Heme + stool Epigastric pain Procedures EGD DIAGNOSTIC ESOPHAGOGASTRODUODENOSCOPY TRANSORAL DIAGNOSTIC REFERRAL TO [facility]ANCIAL COUNSELOR Chai Encinas MD [address] [place] [address] [facility] [place] [id number] Referral ID Status Reason Start Date Expiration Date Visits Requested Visits Authorized [id number] Closed Auto-Generated Referral 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 OON Notification Letter Patient Cleared - Admin/Credit Authorizer/D irector advise to proceed 01/01/2022 07/04/2022 1 1 [facility] for visit Narrative* Diagnostic Procedure Only (Routine) - Closed Specialty Diagnoses / Procedures Referred By Leilani Referred To Contact Laboratory Medicine / LAB COVID TESTING LL Lot Diagnoses Paroxysmal atrial fibrillation PRE-PROCEDURE & PRE-OPERATIVE COVID Paroxysmal atrial fibrillation (HCC) [I48.0] Procedures COVID19 LAB COVID Chandler Swan MD [address] [facility] [place] [address] [place] [id number] [place] [address] Referral ID Status Reason Start Date Expiration Date Visits Re quested Visits Authorized [id number] Closed 01/09/2022 07/04/2022 1 1 [facility] for visit Narrative* Diagnostic Procedure Only (Routine) - Closed Specialty Diagnoses / Procedures Referred By Leilani [facility] Diagnoses Paroxysmal atrial fibrillation (HCC) Presence of Watchman left atrial appendage closure device Procedures ECHO TRANSESOPHAGEAL ECHO TRANSESOPHAG R-T 2D W/PRB IMG LINUS I&R Candi Beauchamp APRN.SCRAP CHARGER [address] [facility] [facility] [address] [place] [address] [facility] [place] [address] [place] [address] Referral ID Status Reason Start Date Expiration Date V isits Requested Visits Authorized [id number] Closed Auto-Generate d Referral 02/09/2022 07/04/2022 1 1 [facility] for visit Narrative* Diagnostic Procedure Only (Routine) - Closed Specialty Diagnoses / Procedures Referred By Contac t Referred To Contact XR IMAGING Diagnoses Closed nondisplaced fracture of fifth metatarsal bone of right foot with routine healing, subsequent encounter Procedures XR FOOT GENERAL 3V AP/LAT/OBL RIGHT RADEX FOOT COMPLETE MINIMUM 3 VIEWS Gerard Le PA-C [address] [place] [address] [place] [address] Referral ID Status Reason Start Date Expiration Date V isits Requested Visits Authorized [id number] Closed Auto-Generate d Referral 06/01/2023 06/30/2024 1 1 [facility] for visit Narrative* Diagnostic Procedure Only (Routine) - Closed Specialty Diagnoses / Procedures Referred By Contac t Referred To Contact XR IMAGING Diagnoses Pain of right middle finger Procedures XR DIGIT GENERAL 3V FRONTAL/LAT/OBL RIGHT RADEX FINGR MINIMUM 2 VIEWS Gerard Le PA-C [address] [place] [address] [place] [address] Referral ID Status Reason Start Date Expiration Date V isits Requested Visits Authorized [id number] Closed Auto-Generate d Referral 04/12/2023 05/11/2024 1 1 [facility] for visit Narrative* Diagnostic Procedure Only (Routine) - Closed Specialty Diagnoses / Procedures Referred By Contac t Referred To Contact XR IMAGING Diagnoses Ischial bursitis of left side Procedures XR HIP GENERAL 3V PELV/AP/LAT LEFT RADEX HIP UNILATERAL WITH PELVIS 2-3 VIEWS Gerard Le PA-C [address] [place] [address] [place] [address] Referral ID Status Reason Start Date Expiration Date V isits Requested Visits Authorized [id number] Closed Auto-Generate d Referral 12/15/2021 01/14/2023 1 1 [facility] Summary Purpose Family History Relationship Condition Age at Onset Recorded Date/T gabrielle father Cardiac disease Unknown High blood cholesterol Unknown mother Cardiac disease Unknown Relationship Condition Age at Onset Recorded Date/T gabrielle father Cardiac disease Unknown High blood cholesterol Unknown Myocardial infarction 58 mother Cardiac disease Unknown Advance Directives Date Activated Date Inactivated Comments 12/10/2024 2:26 [...] Documents on File Type Date Recorded Patient Detention Deputy Expl anation Advance Directive(s) 02/26/2021 11:31 AM Advance Directive(s) 10/02/2020 4:46 PM Advance Directive(s) 10/24/2019 6:40 PM Advance Directive(s) 07/18/2019 8:41 AM Advance Directive(s) 06/21/2019 9:34 AM Advance Directive(s) 05/04/2019 8:22 AM Advance Directive(s) 03/22/2019 7:15 AM Advance Directive(s) 08/31/2015 1:42 PM Advance Directive(s) 08/20/2015 4:21 PM Documents on File Type Date Recorded Patient Detention Deputy Expl anation Advance Directive(s) 02/26/2021 11:31 AM Advance Directive(s) 10/02/2020 4:46 PM Advance Directive(s) 10/24/2019 6:40 PM Advance Directive(s) 07/18/2019 8:41 AM Advance Directive(s) 06/21/2019 9:34 AM Advance Directive(s) 05/04/2019 8:22 AM Advance Directive(s) 03/22/2019 7:15 AM Advance Directive(s) 08/31/2015 1:42 PM Advance Directive(s) 08/20/2015 4:21 PM Documents on File Type Date Recorded Patient Detention Deputy Expl anation Advance Directive(s) 12/23/2021 1:13 PM Advance Directive(s) 02/26/2021 11:31 AM Advance Directive(s) 10/02/2020 4:46 PM Advance Directive(s) 10/24/2019 6:40 PM Advance Directive(s) 07/18/2019 8:41 AM Advance Directive(s) 06/21/2019 9:34 AM Advance Directive(s) 05/04/2019 8:22 AM Advance Directive(s) 03/22/2019 7:15 AM Advance Directive(s) 08/31/2015 1:42 PM Advance Directive(s) 08/20/2015 4:21 PM Documents on File Type Date Recorded Patient Detention Deputy Expl anation Advance Directive(s) 12/23/2021 1:13 PM Advance Directive(s) 02/26/2021 11:31 AM Advance Directive(s) 10/02/2020 4:46 PM Advance Directive(s) 10/24/2019 6:40 PM Advance Directive(s) 07/18/2019 8:41 AM Advance Directive(s) 06/21/2019 9:34 AM Advance Directive(s) 05/04/2019 8:22 AM Advance Directive(s) 03/22/2019 7:15 AM Advance Directive(s) 08/31/2015 1:42 PM Advance Directive(s) 08/20/2015 4:21 PM Documents on File Type Date Recorded Patient Detention Deputy Expl anation Advance Directive(s) 01/02/2022 8:28 AM [...] Will No February 13 6:44pm Power of [place]er [place] No February 13, 2 021 6:44pm Documents on File Type Date Recorded Patient Detention Deputy Expl anation Advance Directive(s) 01/02/2022 8:28 AM [...] Do you have a Healthcare Power of [place]er [place]? Yes January 07, 2025 1:29pm Advance Directives No July 13, 2015 4:56pm Advance Directive Response Recorded Date/ Time Do you have a Healthcare Power of [place]er [place]? Yes January 07, 2025 5:54pm Advance Directives No July 13, 2015 4:56pm Advance Directive Response Recorded Date/ Time Do you have a Healthcare Power of [place]er [place]? Yes January 07, 2025 5:54pm Do you have a Healthcare Power of [place]er [place]? Yes February 16, 2025 12:03pm Name of Medical Power of Planer Stone February 16, 2025 12:03pm Advance Directives No July 13, 2015 4:56pm Advance Directive Response Recorded Date/ Time Do you have a Healthcare Power of [place]er Stone? Yes January 07, 2025 5:54pm Do you have a Healthcare Power of [place]er [place]? Yes February 16, 2025 12:03pm Name of Medical Power of Planer Stone February 16, 2025 12:03pm Do you have a Healthcare Power of [place]er [place]? Yes March 22, 2025 3:36am Advance Directives No July 13, 2015 4:56pm Advance Directive Response Recorded Date/ Time Do you have a Healthcare Power of [place]er Stone? Yes February 16, 2025 11:03am Name of Medical Power of Planer Stone February 16, 2025 11:03am Do you have a Healthcare Power of [place]er Stone? Yes March 22, 2025 2:36am Advance Directives No July 13, 2015 3:56pm History of Present Illness * Mars Chung, - 01/19/2019 10:00 AM EDT Pertinent cardiac [...] atrial fibrillation. Previously seen by me at [facility]. At that time she had paroxysmal atrial [...] file Gets together: Not on file Attends yarsanism service: Not on file Active member of [...] with tissue valve Moderate mitral regurgitation Other emt intermediate current use of antiarrhythmic medical therapy Assessment [...] back to sinus rhythm. Dr. Washington at [facility] contacted. Mars Chung DO 01/19/2019 1:54 PM documented in this encounter Assessments Diagnosis Persistent atrial fibrillation- Primary Atrial fibrillation [facility] current use of antiarrhythmic medical therapy Moderate mitral regurgitation Mitral valve disorders Status post aortic valve replacement with tissue valve Heart valve replaced by other means Medications Administered Section Inactive Administered Medications - up to 3 most recent administrations Medication Order MAR Action Action Date Dose Rate Site benzocaine 20% 4 Sulphur (TOPEX) 4 Sulphur, TOPICAL, ONCE, 1 dose, On Wed01/02/22 at [...] Chronic kidney disease, stage 3b January 4:29pm Chief Complaint Admit Date CHF EXACERBATION January 07, 2025 4:29p m CHF EXACERBATION January 08, 2025 6:49p m CHF EXACERBATION January 09, 2025 2:34p m CHF EXACERBATION January 10, 2025 6:23p m CHF EXACERBATION January 11, 2025 12:3 0pm Reason for Visit Admit Date Chronic kidney disease, stage 3b January 4:29pm MONIQUE (acute kidney injury) January 07, 2025 4:29pm CHF exacerbation January 07, 2025 4:29p m Chief Complaint Admit Date CHF EXACERBATION January 07, 2025 4:29p m CHF EXACERBATION January 08, 2025 6:49p m CHF EXACERBATION January 09, 2025 2:34p m CHF EXACERBATION January 10, 2025 6:23p m CHF EXACERBATION January 11, 2025 12:3 0pm Stroke [facility] 7/6 (Tereletski) February 05, 2025 8:53am Reason for Visit Admit Date Chronic kidney disease, stage 3b January 4:29pm MONIQUE (acute kidney injury) January 07, 2025 4:29pm CHF exacerbation January 07, 2025 4:29p m Chronic renal failure (CRF), stage 3b 2024 8:53am Reason for Visit Admit Date Chronic kidney disease, stage 3b January 4:29pm MONIQUE (acute kidney injury) January 07, 2025 4:29pm CHF exacerbation January 07, 2025 4:29p m Acute mesenteric insufficiency February 8:53am Chronic kidney disease, stage 3b February 05, 2025 8:53am Pacemaker February 05, 2025 8:5 3am Presence of Watchman left atrial appenda ge closure device February 05, 2025 8:53am Pulmonary hypertension February 05, 2025 8:53am H/O aortic valve replacement February 05, 2025 8:53am HTN (hypertension) February 05, 2025 8:5 3am PAF (paroxysmal atrial fibrillation) Feb us2024 8:53am Chief Complaint Admit Date CHF EXACERBATION January 07, 2025 4:29p m CHF EXACERBATION January 08, 2025 6:49p m CHF EXACERBATION January 09, 2025 2:34p m CHF EXACERBATION January 10, 2025 6:23p m CHF EXACERBATION January 11, 2025 12:3 0pm Stroke [facility] 7/6 (Elaine) February 05, 2025 8:53am Establish Pacer Care February 08, 2025 9: 56am Reason for Visit Admit Date Chronic kidney disease, stage 3b January 4:29pm MONIQUE (acute kidney injury) January 07, 2025 4:29pm CHF exacerbation January 07, 2025 4:29p m Acute mesenteric insufficiency February 8:53am Chronic kidney disease, stage 3b February 05, 2025 8:53am Pacemaker February 05, 2025 8:5 3am Presence of Watchman left atrial appenda ge closure device February 05, 2025 8:53am Pulmonary hypertension February 05, 2025 8:53am H/O aortic valve replacement February 05, 2025 8:53am HTN (hypertension) February 05, 2025 8:5 3am PAF (paroxysmal atrial fibrillation) Feb 8:53am Cardiac arrhythmia February 08, 2025 9:5 6am Pacemaker February 08, 2025 9:5 6am Presence of Watchman left atrial appenda ge closure device February 08, 2025 9:56am Chief Complaint Admit Date CHF EXACERBATION January 07, 2025 4:29p m CHF EXACERBATION January 08, 2025 6:49p m CHF EXACERBATION January 09, 2025 2:34p m CHF EXACERBATION January 10, 2025 6:23p m CHF EXACERBATION January 11, 2025 12:3 0pm Stroke [facility] 7/6 (Elaine) February 05, 2025 8:53am Pacer Check Remote [place] 7th, 2025 9:0 0am Establish Pacer Care February 08, 2025 9: 56am Chief Complaint Admit Date CHF EXACERBATION January 07, 2025 4:29p m CHF EXACERBATION January 08, 2025 6:49p m CHF EXACERBATION January 09, 2025 2:34p m CHF EXACERBATION January 10, 2025 6:23p m CHF EXACERBATION January 11, 2025 12:3 0pm Stroke [facility] 7/6 (Tereletski) February 05, 2025 8:53am Pacer Check Remote February 08, 2025 9:0 0am Establish Pacer Care February 08, 2025 9: 56am SOB February 16, 2025 11 :25am Chief Complaint Admit Date CHF EXACERBATION January 07, 2025 4:29p m CHF EXACERBATION January 08, 2025 6:49p m CHF EXACERBATION January 09, 2025 2:34p m CHF EXACERBATION January 10, 2025 6:23p m CHF EXACERBATION January 11, 2025 12:3 0pm Stroke [facility] 7/6 (Tereletski) February 05, 2025 8:53am Pacer Check Remote February 08, 2025 9:0 0am Establish Pacer Care February 08, 2025 9: 56am SOB February 16, 2025 11 :25am WOUND March 01, 2025 8: 49am WOUND March 01, 2025 12 :49pm Reason for Visit Admit Date Chronic kidney disease, stage 3b January 4:29pm MONIQUE (acute kidney injury) January 07, 2025 4:29pm CHF exacerbation January 07, 2025 4:29p m Acute mesenteric insufficiency February 8:53am Chronic kidney disease, stage 3b February 05, 2025 8:53am Pacemaker February 05, 2025 8:5 3am Presence of Watchman left atrial appenda ge closure device February 05, 2025 8:53am Pulmonary hypertension February 05, 2025 8:53am H/O aortic valve replacement February 05, 2025 8:53am HTN (hypertension) February 05, 2025 8:5 3am PAF (paroxysmal atrial fibrillation) Feb 8:53am Cardiac arrhythmia February 08, 2025 9:5 6am Pacemaker February 08, 2025 9:5 6am Presence of Watchman left atrial appenda ge closure device February 08, 2025 9:56am Chronic kidney disease, stage 3b March 01, 2025 8:49am Type 2 diabetes mellitus March 01 8:49am Ulcer of left foot with fat layer expose d March 01, 2025 8:49am Ulcer of right foot with fat layer expos ed March 01, 2025 8:49am Ulcer of right lower extremity with fat layer exposed March 01, 2025 8:49am PAD (peripheral artery disease) February 032024 8:49am PAF (paroxysmal atrial fibrillation) Aug ust 2024 8:49am Chief Complaint Admit Date CHF EXACERBATION January 07, 2025 4:29p m CHF EXACERBATION January 08, 2025 6:49p m CHF EXACERBATION January 09, 2025 2:34p m CHF EXACERBATION January 10, 2025 6:23p m CHF EXACERBATION January 11, 2025 12:3 0pm Stroke [facility] 7/6 (Tereletski) February 05, 2025 8:53am Pacer Check Remote February 08, 2025 9:0 0am Establish Pacer Care February 08, 2025 9: 56am SOB February 16, 2025 11 :25am WOUND March 01, 2025 8: 49am WOUND March 01, 2025 12 :49pm WOUND March 08, 2025 8:57am WOUND March 08, 2025 12:34pm Anemia March 13, 2025 1:46pm Reason for Visit Admit Date Chronic kidney disease, stage 3b January 4:29pm MONIQUE (acute kidney injury) January 07, 2025 4:29pm CHF exacerbation January 07, 2025 4:29p m Acute mesenteric insufficiency February 8:53am Chronic kidney disease, stage 3b February 05, 2025 8:53am Pacemaker February 05, 2025 8:5 3am Presence of Watchman left atrial appenda ge closure device February 05, 2025 8:53am Pulmonary hypertension February 05, 2025 8:53am H/O aortic valve replacement February 05, 2025 8:53am HTN (hypertension) February 05, 2025 8:5 3am PAF (paroxysmal atrial fibrillation) Aug ust 2024 8:53am Cardiac arrhythmia February 08, 2025 9:5 6am Pacemaker February 08, 2025 9:5 6am Presence of Watchman left atrial appenda ge closure device February 08, 2025 9:56am Chronic kidney disease, stage 3b March 01, 2025 8:49am Type 2 diabetes mellitus March 01 8:49am Ulcer of left foot with fat layer expose d March 01, 2025 8:49am Ulcer of right foot with fat layer expos ed March 01, 2025 8:49am Ulcer of right lower extremity with fat layer exposed March 01, 2025 8:49am PAD (peripheral artery disease) February 032024 8:49am PAF (paroxysmal atrial fibrillation) Aug ust 2024 8:49am Chronic kidney disease, stage 3b Septemb er 2024 8:57am Type 2 diabetes mellitus March 08, 2025 8:57am Ulcer of left foot with fat layer expose d March 08, 2025 8:57am Ulcer of right foot with fat layer expos ed March 08, 2025 8:57am Ulcer of right lower extremity with fat layer exposed March 08, 2025 8:57am PAD (peripheral artery disease) Septembe r 2024 8:57am PAF (paroxysmal atrial fibrillation) Sep 2024 8:57am Anemia March 13, 2025 1:46pm Chief Complaint Admit Date CHF EXACERBATION January 07, 2025 4:29p m CHF EXACERBATION January 08, 2025 6:49p m CHF EXACERBATION January 09, 2025 2:34p m CHF EXACERBATION January 10, 2025 6:23p m CHF EXACERBATION January 11, 2025 12:3 0pm Stroke [facility] 7/6 (Tereletski) February 05, 2025 8:53am Pacer Check Remote February 08, 2025 9:0 0am Establish Pacer Care February 08, 2025 9: 56am SOB February 16, 2025 11 :25am WOUND March 01, 2025 8: 49am WOUND March 01, 2025 12 :49pm WOUND March 08, 2025 12:34pm Anemia March 13, 2025 1:46pm WOUND March 15, 2025 11:00am WOUND March 15, 2025 1:09pm IRON March 20, 2025 9:00am wound March 22, 2025 3:34am Reason for Visit Admit Date Chronic kidney disease, stage 3b January 4:29pm MONIQUE (acute kidney injury) January 07, 2025 4:29pm CHF exacerbation January 07, 2025 4:29p m Acute mesenteric insufficiency February 8:53am Chronic kidney disease, stage 3b February 05, 2025 8:53am Pacemaker February 05, 2025 8:5 3am 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 February 05, 2025 8:53am Pulmonary hypertension February 05, 2025 8:53am H/O aortic valve replacement February 05, 2025 8:53am HTN (hypertension) February 05, 2025 8:5 3am PAF (paroxysmal atrial fibrillation) Aug ust 2024 8:53am Cardiac arrhythmia February 08, 2025 9:5 6am Pacemaker February 08, 2025 9:5 6am 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 February 08, 2025 9:56am Chronic kidney disease, stage 3b March 01, 2025 8:49am Type 2 diabetes mellitus March 01 8:49am Ulcer of left foot with fat layer expose d March 01, 2025 8:49am Ulcer of right foot with fat layer expos ed March 01, 2025 8:49am Ulcer of right lower extremity with fat layer exposed March 01, 2025 8:49am PAD (peripheral artery disease) February 032024 8:49am PAF (paroxysmal atrial fibrillation) Feb ust 2024 8:49am Anemia of chronic renal failure, stage 3 (moderate) March 13, 2025 1:46pm Iron deficiency anemia due to chronic bl ood loss March 13, 2025 1:46pm Anemia March 13, 2025 1:46pm Chronic kidney disease, stage 3b [facility] 2024 11:00am Type 2 diabetes mellitus March 15, 2025 11:00am Ulcer of left foot with fat layer expose d March 15, 2025 11:00am Ulcer of right foot with fat layer expos ed March 15, 2025 11:00am Ulcer of right lower extremity with fat layer exposed March 15, 2025 11:00am PAD (peripheral artery disease) [facility] 2024 11:00am PAF (paroxysmal atrial fibrillation) [facility] 11:[facility]am Chief Complaint Admit Date CHF EXACERBATION January 07, 2025 4:29p m CHF EXACERBATION January 08, 2025 6:49p m CHF EXACERBATION January 09, 2025 2:34p m CHF EXACERBATION January 10, 2025 6:23p m CHF EXACERBATION January 11, 2025 12:3 0pm Stroke [facility] 7/6 (Tereletski) February 05, 2025 8:53am Pacer Check Remote February 08, 2025 9:0 0am Establish Pacer Care February 08, 2025 9: 56am SOB February 16, 2025 11 :25am WOUND March 01, 2025 8: 49am WOUND March 01, 2025 12 :49pm WOUND March 08, 2025 12:34pm Anemia March 13, 2025 1:46pm WOUND March 15, 2025 1:09pm wound March 22, 2025 3:34am IRON March 27, 2025 1:30pm WOUND March 29, 2025 11:00am WOUND March 29, 2025 12:37pm Reason for Visit Admit Date Chronic kidney disease, stage 3b January 4:29pm MONIQUE (acute kidney injury) January 07, 2025 4:29pm CHF exacerbation January 07, 2025 4:29p m Acute mesenteric insufficiency February 8:53am Chronic kidney disease, stage 3b February 05, 2025 8:53am Pacemaker February 05, 2025 8:5 3am 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 February 05, 2025 8:53am Pulmonary hypertension February 05, 2025 8:53am H/O aortic valve replacement February 05, 2025 8:53am HTN (hypertension) February 05, 2025 8:5 3am PAF (paroxysmal atrial fibrillation) Feb 8:53am Cardiac arrhythmia February 08, 2025 9:5 6am Pacemaker February 08, 2025 9:5 6am 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 February 08, 2025 9:56am Chronic kidney disease, stage 3b March 01, 2025 8:49am Type 2 diabetes mellitus March 01 8:49am Ulcer of left foot with fat layer expose d March 01, 2025 8:49am Ulcer of right foot with fat layer expos ed March 01, 2025 8:49am Ulcer of right lower extremity with fat layer exposed March 01, 2025 8:49am PAD (peripheral artery disease) February 032024 8:49am PAF (paroxysmal atrial fibrillation) Aug ust 2024 8:49am Anemia of chronic renal failure, stage 3 (moderate) March 13, 2025 1:46pm Iron deficiency anemia due to chronic bl ood loss March 13, 2025 1:46pm Anemia March 13, 2025 1:46pm Chronic kidney disease, stage 3b [facility] 2024 11:00am Type 2 diabetes mellitus March 29, 2025 11:00am Ulcer of left foot with fat layer expose d March 29, 2025 11:00am Ulcer of right foot with fat layer expos ed March 29, 2025 11:00am Ulcer of right lower extremity with fat layer exposed March 29, 2025 11:00am PAD (peripheral artery disease) [facility] 2024 11:00am PAF (paroxysmal atrial fibrillation) [facility] 11:00am Chief Complaint Admit Date CHF EXACERBATION January 07, 2025 4:29p m CHF EXACERBATION January 08, 2025 6:49p m CHF EXACERBATION January 09, 2025 2:34p m CHF EXACERBATION January 10, 2025 6:23p m CHF EXACERBATION January 11, 2025 12:3 0pm Stroke [facility] 7/6 (Tereletski) February 05, 2025 8:53am Pacer Check Remote February 08, 2025 9:0 0am Establish Pacer Care February 08, 2025 9: 56am SOB February 16, 2025 11 :25am WOUND March 01, 2025 8: 49am WOUND March 01, 2025 12 :49pm WOUND March 08, 2025 12:34pm Anemia March 13, 2025 1:46pm WOUND March 15, 2025 1:09pm wound March 22, 2025 3:34am IRON March 27, 2025 1:30pm WOUND March 29, 2025 11:00am WOUND March 29, 2025 12:37pm WOUND April 05, 2025 10 :53am WOUND April 05, 2025 4: 47pm Reason for Visit Admit Date Chronic kidney disease, stage 3b January 4:29pm MONIQUE (acute kidney injury) January 07, 2025 4:29pm CHF exacerbation January 07, 2025 4:29p m Acute mesenteric insufficiency February 8:53am Chronic kidney disease, stage 3b February 05, 2025 8:53am Pacemaker February 05, 2025 8:5 3am 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 February 05, 2025 8:53am Pulmonary hypertension February 05, 2025 8:53am H/O aortic valve replacement February 05, 2025 8:53am HTN (hypertension) February 05, 2025 8:5 3am PAF (paroxysmal atrial fibrillation) Aug ust 2024 8:53am Cardiac arrhythmia February 08, 2025 9:5 6am Pacemaker February 08, 2025 9:5 6am 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 February 08, 2025 9:56am Chronic kidney disease, stage 3b March 01, 2025 8:49am Type 2 diabetes mellitus March 01 8:49am Ulcer of left foot with fat layer expose d March 01, 2025 8:49am Ulcer of right foot with fat layer expos ed March 01, 2025 8:49am Ulcer of right lower extremity with fat layer exposed March 01, 2025 8:49am PAD (peripheral artery disease) February 032024 8:49am PAF (paroxysmal atrial fibrillation) Aug ust 2024 8:49am Anemia of chronic renal failure, stage 3 (moderate) March 13, 2025 1:46pm Iron deficiency anemia due to chronic bl ood loss March 13, 2025 1:46pm Anemia March 13, 2025 1:46pm Chronic kidney disease, stage 3b [facility] 2024 11:00am Type 2 diabetes mellitus March 29, 2025 11:00am Ulcer of left foot with fat layer expose d March 29, 2025 11:00am Ulcer of right foot with fat layer expos ed March 29, 2025 11:00am Ulcer of right lower extremity with fat layer exposed March 29, 2025 11:00am PAD (peripheral artery disease) [facility] 2024 11:00am PAF (paroxysmal atrial fibrillation) [facility] 2024 11:00am Chronic kidney disease, stage 3b April 05, 2025 10:53am Type 2 diabetes mellitus April 05 10:53am Ulcer of left foot with fat layer expose d April 05, 2025 10:53am Ulcer of left lower extremity with fat l clarisa exposed April 05, 2025 10:53am Ulcer of right foot with fat layer expos ed April 05, 2025 10:53am Ulcer of right lower extremity with fat layer exposed April 05, 2025 10:53am PAD (peripheral artery disease) April 05, 2025 10:53am PAF (paroxysmal atrial fibrillation) Oct [facility] 2024 10:53am Chief Complaint Admit Date CHF EXACERBATION January 11, 2025 12:3 0pm Stroke [facility] 7/6 (Tereletski) February 05, 2025 8:53am Pacer Check Remote February 08, 2025 9:0 0am Establish Pacer Care February 08, 2025 9: 56am SOB February 16, 2025 11 :25am WOUND March 01, 2025 8: 49am WOUND March 01, 2025 12 :49pm WOUND March 08, 2025 12:34pm Anemia March 13, 2025 1:46pm WOUND March 15, 2025 1:09pm wound March 22, 2025 3:34am WOUND March 29, 2025 11:00am WOUND March 29, 2025 12:37pm WOUND April 05, 2025 4: 47pm WOUND April 12, 2025 12 :27pm WOUND April 19, 2025 1 0:18am Pacer Check Remote April 22, 2025 3 :19am 1 WK - LABS April 24, 2025 2 :30pm IRON April 24, 2025 2 :45pm WOUND May 03, 2025 1 1:15am WOUND May 03, 2025 1 :17pm 3 M FU May 07, 2025 1 1:26am WOUND May 10, 2025 1 1:22am Reason for Visit Admit Date Acute mesenteric insufficiency February 8:53am Chronic kidney disease, stage 3b February 05, 2025 8:53am Pacemaker February 05, 2025 8:5 3am 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 February 05, 2025 8:53am Pulmonary hypertension February 05, 2025 8:53am H/O aortic valve replacement February 05, 2025 8:53am HTN (hypertension) February 05, 2025 8:5 3am PAF (paroxysmal atrial fibrillation) Aug [facility] 8:53am Cardiac arrhythmia February 08, 2025 9:5 6am Pacemaker February 08, 2025 9:5 6am 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 February 08, 2025 9:56am Chronic kidney disease, stage 3b March 01, 2025 8:49am Type 2 diabetes mellitus March 01 8:49am Ulcer of left foot with fat layer expose d March 01, 2025 8:49am Ulcer of right foot with fat layer expos ed March 01, 2025 8:49am Ulcer of right lower extremity with fat layer exposed March 01, 2025 8:49am PAD (peripheral artery disease) February 032024 8:49am PAF (paroxysmal atrial fibrillation) Aug ust 2024 8:49am Anemia of chronic renal failure, stage 3 (moderate) March 13, 2025 1:46pm Iron deficiency anemia due to chronic bl ood loss March 13, 2025 1:46pm Anemia March 13, 2025 1:46pm Chronic kidney disease, stage 3b [facility] 2024 11:00am Type 2 diabetes mellitus March 29, 2025 11:00am Ulcer of left foot with fat layer expose d March 29, 2025 11:00am Ulcer of right foot with fat layer expos ed March 29, 2025 11:00am Ulcer of right lower extremity with fat layer exposed March 29, 2025 11:00am PAD (peripheral artery disease) [facility] 2024 11:00am PAF (paroxysmal atrial fibrillation) Sep 2024 11:00am Anemia of chronic renal failure, stage 3 (moderate) April 24, 2025 2:30pm Iron deficiency anemia due to chronic bl ood loss April 24, 2025 2:30pm Chronic kidney disease, stage 3b May 03, 2025 11:15am Type 2 diabetes mellitus May 03, 2 025 11:15am Ulcer of left foot with fat layer expose d May 03, 2025 11:15am Ulcer of left lower extremity with fat l clarisa exposed May 03, 2025 11:15am Ulcer of right foot with fat layer expos ed May 03, 2025 11:15am Ulcer of right lower extremity with fat layer exposed May 03, 2025 11:15am PAD (peripheral artery disease) May 03, 2025 11:15am PAF (paroxysmal atrial fibrillation) Oct [facility] 2024 11:15am Acute mesenteric insufficiency May 07, 2025 11:26am Pacemaker May 07, 2025 1 1:26am 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 May 07, 2025 11:26am Pulmonary hypertension May 07 11:26am H/O aortic valve replacement May 11:26am HTN (hypertension) May 07, 2025 1 1:26am PAF (paroxysmal atrial fibrillation) May 11:26am Chronic kidney disease, stage 3b [facility] 2024 11:22am Type 2 diabetes mellitus May 10, 2 025 11:22am Ulcer of left foot with fat layer expose d May 10, 2025 11:22am Ulcer of left lower extremity with fat l clarisa exposed May 10, 2025 11:22am Ulcer of right foot with fat layer expos ed May 10, 2025 11:22am Ulcer of right lower extremity with fat layer exposed May 10, 2025 11:22am PAD (peripheral artery disease) May 10, 2025 11:22am PAF (paroxysmal atrial fibrillation) May 11:22am Chief Complaint Admit Date Stroke [facility] 7/6 (Tereletski) February 05, 2025 8:53am Pacer Check Remote February 08, 2025 9:0 0am Establish Pacer Care February 08, 2025 9: 56am SOB February 16, 2025 11 :25am WOUND March 01, 2025 8: 49am WOUND March 01, 2025 12 :49pm WOUND March 08, 2025 12:34pm Anemia March 13, 2025 1:46pm WOUND March 15, 2025 1:09pm wound March 22, 2025 3:34am WOUND March 29, 2025 11:00am WOUND March 29, 2025 12:37pm WOUND April 05, 2025 4: 47pm WOUND April 12, 2025 12 :27pm WOUND April 19, 2025 1 0:18am Pacer Check Remote April 22, 2025 3 :19am 1 WK - LABS April 24, 2025 2 :30pm IRON April 24, 2025 2 :45pm WOUND May 03, 2025 1 1:15am WOUND May 03, 2025 1 :17pm 3 M FU May 07, 2025 1 1:26am WOUND May 10, 2025 1 1:22am WOUND May 10, 2025 1 2:11pm Health Concerns Infection Onset Date Last Indicated Resolved Time COVID-19 Rule-Out 02/21/2022 02/21/2022 02/22/2022 3:58 AM EDT Reason for Referral Specialty Diagnoses / Procedures Referred By Leilani t Referred To Contact CT IMAGING Diagnoses Lung nodule, solitary Procedures CT CHEST WO IVCON DIAGNOSTIC COMPUTED TOMOGRAPHY THORAX W/O CNTRST Gerard Le PA-C [address] [place] [address] Ct Imaging Referral ID Status Reason Start Date Expiration Date Visits Requested Visits Authorized [id number] Pending Review Auto-Generat ed Referral 07/07/2022 05/06/2023 1 1 Specialty Diagnoses / Procedures Referred By Leilani ng Referred To Contact Hematology Diagnoses Iron deficiency anemia due to chronic blood loss Procedures CONSULT TO HEMATOLOGY OFFICE/OUTPATIENT [facility] 60-74 MINUTES Gerard Le PA-C [address] [place] [address] Referral ID Status Reason Start Date Expiration Date Visits Requested Visits Authorized [id number] Pending Review PCP Requested Referral 04/06/2022 04/06/2023 1 1 Specialty Diagnoses / Procedures Referred By Leilani ng Referred To Contact MR IMAGING Diagnoses 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 Procedures MRA BRAIN WO/W IVCON MRA; HEAD W & WO CONTRAST Gerard Le PA-C [address] [place] [address] Mr Imaging Referral ID Status Reason Start Date Expiration Date Visits Requested Visits Authorized [id number] Pending Review Auto-Generat ed Referral 07/07/2022 08/06/2023 1 1 Specialty Diagnoses / Procedures Referred By Leilani t Referred To Contact Vascular Surgery Diagnoses PVD (peripheral vascular disease) with claudication (HCC) Procedures CONSULT TO VASCULAR SURGERY OFFICE/OUTPATIENT [facility] MDM 60-74 MINUTES Gerard Le PA-C [address] [place] [address] Referral ID Status Reason Start Date Expiration Date Visits Requested Visits Authorized [id number] Pending Review PCP Requested Referral 01/28/2023 01/28/2024 1 1 Specialty Diagnoses / Procedures Referred By Contac t Referred To Contact CT IMAGING Diagnoses Lung nodule, solitary Procedures CT CHEST WO IVCON DIAGNOSTIC COMPUTED TOMOGRAPHY THORAX W/O CNTRST Gerard Le PA-C [address] [place] [address] [place] [address] Referral ID Status Reason Start Date Expiration Date V isits Requested Visits Authorized [id number] Closed Auto-Generate d Referral 07/07/2022 05/06/2023 1 1 Specialty Diagnoses / Procedures Referred By Contac t Referred To Contact Hematology Diagnoses 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 Procedures CONSULT TO HEMATOLOGY OFFICE/OUTPATIENT [facility] 60 MINUTES Gerard Le PA-C [address] [place] [address] Referral ID Status Reason Start Date Expiration Date Visits Requested Visits Authorized [id number] Authorized PCP Requested Referral 11/15/2023 11/14/2024 1 1 Additional Source Comments INFORMATION SOURCE (unrecogn ized section and content) DATE CREATED AUTHOR 12/22/2017 [facility] DATE CREATED AUTHOR AUTHOR'S ORGANIZ ATION 03/09/2019 [facility] DATE CREATED AUTHOR AUTHOR'S ORGANIZ ATION 02/21/2021 [facility] DATE CREATED AUTHOR AUTHOR'S ORGANIZ ATION 11/09/2023 [facility] DATE CREATED AUTHOR AUTHOR'S ORGANIZ ATION 02/09/2024 [facility] DATE CREATED AUTHOR AUTHOR'S ORGANIZ ATION 12/27/2024 [facility] DATE CREATED AUTHOR AUTHOR'S ORGANIZ ATION 01/02/2025 [facility] DATE CREATED AUTHOR AUTHOR'S ORGANIZ ATION 05/16/2025 [facility] Reason for Visit (unrecogniz ed section and content) Reason Comments Non-Chemotherapy Treatment Specialty Diagnoses / Procedures Referred By Contac t Referred To Contact Diagnoses 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 Procedures IRON SUCROSE INJECTION PER 1 MG Ralph Mujica DO [address] [place] [address] [facility] [address] [place] [address] Referral ID Status Reason Start Date Expiration Date V isits Requested Visits Authorized [id number] Authorized 04/07/2022 07/04/2022 99 99 Reason Comments Follow Up Specialty Diagnoses / Procedures Referred By Leilani ng Referred To Contact Cardiology / CARD ADMIN [facility] Diagnoses Follow-up examination 6 month follow up Procedures OFFICE/OUTPATIENT ESTABLISHED MOD MDM 30-39 MIN EST PATIENT Carla Burdick MD [address] [facility] [place] [address] Carla Burdick MD [address] [place] [address] Referral ID Status Reason Start Date Expiration Date Visits Re quested Visits Authorized [id number] Closed 03/30/2022 07/04/2022 1 1 Reason Comments [...] MODERATE MDM 45-59 MINUTES NEW DDI PATIENT Gerard Le, BOUBACAR [address] [place] [address] Chai Encinas MD [address] [place] [address] Referral ID Status Reason Start Date Expiration Date V isits Requested Visits Authorized [id number] 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 [...] face near hairline Procedures 4C EST Self, Gerard Jackson, PACarolineC [address] [place] [address] Referral ID Status Reason Start Date Expiration Date Visits Re quested Visits Authorized [id number] Closed 01/16/2022 07/04/2022 1 1 Reason Onset Date Comments Refill Request 01/19/2022 Reason Comments Patient Question ORDER FOR ABDIEL AND EC G Reason Comments Diarrhea " A few weeks" Specialty Diagnoses / Procedures Referred By Leilani t Referred To Contact Family Practice / FAMILY MEDICINE Diagnoses Chronic diarrhea Procedures MYC OFFICE VISIT Self, Gerard Jackson, PASammy [address] [place] [address] Referral ID Status Reason Start Date Expiration Date Visits Re quested Visits Authorized [id number] Closed 02/20/2022 07/04/2022 1 1 Reason Comments Procedure Follow Up EGD completed on 01/02 Reason Onset Date Comments Transition Of Care 02/25/2022 [facility] Hospital D/C 02/24/2023 Reason Comments Reminder Call Transesophageal Echo 03/03/22 Specialty Diagnoses / Procedures Referred By Contact Referred To Contact Cardiology / CARDIOVASCULAR MEDICINE Diagnoses Paroxysmal atrial fibrillation Presence of Watchman left atrial appendage closure device Per [facility] Procedures REFERRAL TO [facility] EST CLINICIAN Chandler Swan MD [address] [place] [address] Radha Torres APRN.CNP [address] [place] [address] Referral ID Status Reason Start Date Expiration Date Visits Requested Visits Authorized [id number] 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 OON Notification Letter 03/03/2022 07/04/2022 1 1 Reason Onset Date Comments Transition Of Care 03/05/2022 [facility] follow up Reason Comments Edema Bilateral legs and f eet x 4-5 days Palpitations Shortness of Breath slight Specialty Diagnoses / Procedures Referred By Leilani t Referred To Contact Family Practice / FAMILY MEDICINE Diagnoses Follow up to hospital stay Procedures MYC OFFICE VISIT Self Gerard Le PA-C [address] [place] [address] Referral ID Status Reason Start Date Expiration Date Visits Re quested Visits Authorized [id number] Closed 03/03/2022 07/04/2022 1 1 Reason Onset Date Comments Transition Of Care 03/20/2022 Tcm readmissi on Reason Onset Date Comments Appointment 03/21/2022 Reason Comments Transition Mgr - Other CHF Reason Comments Hospital Follow [...] Comments Information Reason Comments Research IRB [id number] [facility]- Reason Onset Date Comments Refill Request 08/30/2022 [...] IVCON DIAGNOSTIC COMPUTED TOMOGRAPHY THORAX W/O CNTRST Gerard Le PA-C [address] [place] [address] [place] [address] Referral ID Status Reason Start Date Expiration Date V isits Requested Visits Authorized [id number] Closed Auto-Generate d Referral 07/07/2022 05/06/2023 1 1 Reason Comments Radiology US Specialty Diagnoses / Procedures Referred By Montanaac t Referred To Contact US IMAGING Diagnoses Neoplasm of uncertain behavior of right kidney Procedures US KIDNEY/BLADDER US RETROPERITONEAL REAL TIME W/IMAGE COMPLETE Brayan Chicas MD [address] [place] [address] [place] [address] Referral ID Status Reason Start Date Expiration Date V isits Requested Visits Authorized [id number] Closed Auto-Generate d Referral 09/02/2022 05/09/2023 1 1 Reason Comments Cough Chest congestion x l ast night Reason Comments Patient Update Reason Comments Leg Edema Reason Comments Results Orders Reason Comments Follow Up 6 month Reason Comments Established Patient Reason Comments Initial Consult HEART FAILURE 34304 Reason Comments Transition Of Care Reason Onset Date Comments ACM CECY RN 11/16/2023 E.D. Utilizat ion Review per Payer Request. Reason Comments Patient Question Reason Comments Hospital Follow Up [facility] follow up dc'd 11/12/23 dx: CHF Reason [...] Follow Up hospital follow up- CHF in [facility] for 23 days, discharged October 28 Reason [...] or prosecute any alcohol or drug abuse patient.[facility] HealthIn the event this information is protected by the Federal Confidentiality of Alcohol and Drug Abuse Patient Records regulations: The Federal rules restrict any use of the information to criminally investigate or prosecute any alcohol or drug abuse patient.[facility] HealthIn the event this information is protected by the Federal Confidentiality of Alcohol and Drug Abuse Patient Records regulations: The Federal rules restrict any use of the information to criminally investigate or prosecute any alcohol or drug abuse patient.[facility] HealthIn the event this information is protected by the Federal Confidentiality of Alcohol and Drug Abuse Patient Records regulations: The Federal rules restrict any use of the information to criminally investigate or prosecute any alcohol or drug abuse patient.[facility] HealthIn the event this information is protected by the Federal Confidentiality of Alcohol and Drug Abuse Patient Records regulations: The Federal rules restrict any use of the information to criminally investigate or prosecute any alcohol or drug abuse patient.[facility] HealthIn the event this information is protected by the Federal Confidentiality of Alcohol and Drug Abuse Patient Records regulations: The Federal rules restrict any use of the information to criminally investigate or prosecute any alcohol or drug abuse patient.[facility] HealthIn the event this information is protected by the Federal Confidentiality of Alcohol and Drug Abuse Patient Records regulations: The Federal rules restrict any use of the information to criminally investigate or prosecute any alcohol or drug abuse patient.[facility] HealthIn the event this information is protected by the Federal Confidentiality of Alcohol and Drug Abuse Patient Records regulations: The Federal rules restrict any use of the information to criminally investigate or prosecute any alcohol or drug abuse patient.[facility] HealthIn the event this information is protected by the Federal Confidentiality of Alcohol and Drug Abuse Patient Records regulations: The Federal rules restrict any use of the information to criminally investigate or prosecute any alcohol or drug abuse patient.[facility] HealthIn the event this information is protected by the Federal Confidentiality of Alcohol and Drug Abuse Patient Records regulations: The Federal rules restrict any use of the information to criminally investigate or prosecute any alcohol or drug abuse patient.[facility]In the event this information is protected by the Federal Confidentiality of Alcohol and Drug Abuse Patient Records regulations: The Federal rules restrict any use of the information to criminally investigate or prosecute any alcohol or drug abuse patient.[facility] HealthIn the event this information is protected by the Federal Confidentiality of Alcohol and Drug Abuse Patient Records regulations: The Federal rules restrict any use of the information to criminally investigate or prosecute any alcohol or drug abuse patient.[facility]In the event this information is protected by the Federal Confidentiality of Alcohol and Drug Abuse Patient Records regulations: The Federal rules restrict any use of the information to criminally investigate or prosecute any alcohol or drug abuse patient.[facility] HealthIn the event this information is protected by the Federal Confidentiality of Alcohol and Drug Abuse Patient Records regulations: The Federal rules restrict any use of the information to criminally investigate or prosecute any alcohol or drug abuse patient.[facility]In the event this information is protected by the Federal Confidentiality of Alcohol and Drug Abuse Patient Records regulations: The Federal rules restrict any use of the information to criminally investigate or prosecute any alcohol or drug abuse patient.[facility]In the event this information is protected by the Federal Confidentiality of Alcohol and Drug Abuse Patient Records regulations: The Federal rules restrict any use of the information to criminally investigate or prosecute any alcohol or drug abuse patient.[facility]In the event this information is protected by the Federal Confidentiality of Alcohol and Drug Abuse Patient Records regulations: The Federal rules restrict any use of the information to criminally investigate or prosecute any alcohol or drug abuse patient.[facility]In the event this information is protected by the Federal Confidentiality of Alcohol and Drug Abuse Patient Records regulations: The Federal rules restrict any use of the information to criminally investigate or prosecute any alcohol or drug abuse patient.[facility]In the event this information is protected by the Federal Confidentiality of Alcohol and Drug Abuse Patient Records regulations: The Federal rules restrict any use of the information to criminally investigate or prosecute any alcohol or drug abuse patient.[facility]In the event this information is protected by the Federal Confidentiality of Alcohol and Drug Abuse Patient Records regulations: The Federal rules restrict any use of the information to criminally investigate or prosecute any alcohol or drug abuse patient.[facility]In the event this information is protected by the Federal Confidentiality of Alcohol and Drug Abuse Patient Records regulations: The Federal rules restrict any use of the information to criminally investigate or prosecute any alcohol or drug abuse patient.[facility]In the event this information is protected by the Federal Confidentiality of Alcohol and Drug Abuse Patient Records regulations: The Federal rules restrict any use of the information to criminally investigate or prosecute any alcohol or drug abuse patient.[facility]In the event this information is protected by the Federal Confidentiality of Alcohol and Drug Abuse Patient Records regulations: The Federal rules restrict any use of the information to criminally investigate or prosecute any alcohol or drug abuse patient.[facility]In the event this information is protected by the Federal Confidentiality of Alcohol and Drug Abuse Patient Records regulations: The Federal rules restrict any use of the information to criminally investigate or prosecute any alcohol or drug abuse patient.[facility]In the event this information is protected by the Federal Confidentiality of Alcohol and Drug Abuse Patient Records regulations: The Federal rules restrict any use of the information to criminally investigate or prosecute any alcohol or drug abuse patient.[facility]In the event this information is protected by the Federal Confidentiality of Alcohol and Drug Abuse Patient Records regulations: The Federal rules restrict any use of the information to criminally investigate or prosecute any alcohol or drug abuse patient.[facility]In the event this information is protected by the Federal Confidentiality of Alcohol and Drug Abuse Patient Records regulations: The Federal rules restrict any use of the information to criminally investigate or prosecute any alcohol or drug abuse patient.[facility]In the event this information is protected by the Federal Confidentiality of Alcohol and Drug Abuse Patient Records regulations: The Federal rules restrict any use of the information to criminally investigate or prosecute any alcohol or drug abuse patient.[facility]In the event this information is protected by the Federal Confidentiality of Alcohol and Drug Abuse Patient Records regulations: The Federal rules restrict any use of the information to criminally investigate or prosecute any alcohol or drug abuse patient.[facility]In the event this information is protected by the Federal Confidentiality of Alcohol and Drug Abuse Patient Records regulations: The Federal rules restrict any use of the information to criminally investigate or prosecute any alcohol or drug abuse patient.[facility]In the event this information is protected by the Federal Confidentiality of Alcohol and Drug Abuse Patient Records regulations: The Federal rules restrict any use of the information to criminally investigate or prosecute any alcohol or drug abuse patient.[facility]In the event this information is protected by the Federal Confidentiality of Alcohol and Drug Abuse Patient Records regulations: The Federal rules restrict any use of the information to criminally investigate or prosecute any alcohol or drug abuse patient.[facility]In the event this information is protected by the Federal Confidentiality of Alcohol and Drug Abuse Patient Records regulations: The Federal rules restrict any use of the information to criminally investigate or prosecute any alcohol or drug abuse patient.[facility] the event this information is protected by the Federal Confidentiality of Alcohol and Drug Abuse Patient Records regulations: The Federal rules restrict any use of the information to criminally investigate or prosecute any alcohol or drug abuse patient.[facility]In the event this information is protected by the Federal Confidentiality of Alcohol and Drug Abuse Patient Records regulations: The Federal rules restrict any use of the information to criminally investigate or prosecute any alcohol or drug abuse patient.[facility]In the event this information is protected by the Federal Confidentiality of Alcohol and Drug Abuse Patient Records regulations: The Federal rules restrict any use of the information to criminally investigate or prosecute any alcohol or drug abuse patient.[facility] the event this information is protected by the Federal Confidentiality of Alcohol and Drug Abuse Patient Records regulations: The Federal rules restrict any use of the information to criminally investigate or prosecute any alcohol or drug abuse patient.[facility]In the event this information is protected by the Federal Confidentiality of Alcohol and Drug Abuse Patient Records regulations: The Federal rules restrict any use of the information to criminally investigate or prosecute any alcohol or drug abuse patient.[facility]In the event this information is protected by the Federal Confidentiality of Alcohol and Drug Abuse Patient Records regulations: The Federal rules restrict any use of the information to criminally investigate or prosecute any alcohol or drug abuse patient.[facility]In the event this information is protected by the Federal Confidentiality of Alcohol and Drug Abuse Patient Records regulations: The Federal rules restrict any use of the information to criminally investigate or prosecute any alcohol or drug abuse patient.[facility]In the event this information is protected by the Federal Confidentiality of Alcohol and Drug Abuse Patient Records regulations: The Federal rules restrict any use of the information to criminally investigate or prosecute any alcohol or drug abuse patient.[facility]In the event this information is protected by the Federal Confidentiality of Alcohol and Drug Abuse Patient Records regulations: The Federal rules restrict any use of the information to criminally investigate or prosecute any alcohol or drug abuse patient.[facility]In the event this information is protected by the Federal Confidentiality of Alcohol and Drug Abuse Patient Records regulations: The Federal rules restrict any use of the information to criminally investigate or prosecute any alcohol or drug abuse patient.[facility]In the event this information is protected by the Federal Confidentiality of Alcohol and Drug Abuse Patient Records regulations: The Federal rules restrict any use of the information to criminally investigate or prosecute any alcohol or drug abuse patient.[facility]In the event this information is protected by the Federal Confidentiality of Alcohol and Drug Abuse Patient Records regulations: The Federal rules restrict any use of the information to criminally investigate or prosecute any alcohol or drug abuse patient.[facility]In the event this information is protected by the Federal Confidentiality of Alcohol and Drug Abuse Patient Records regulations: The Federal rules restrict any use of the information to criminally investigate or prosecute any alcohol or drug abuse patient.[facility]In the event this information is protected by the Federal Confidentiality of Alcohol and Drug Abuse Patient Records regulations: The Federal rules restrict any use of the information to criminally investigate or prosecute any alcohol or drug abuse patient.[facility]In the event this information is protected by the Federal Confidentiality of Alcohol and Drug Abuse Patient Records regulations: The Federal rules restrict any use of the information to criminally investigate or prosecute any alcohol or drug abuse patient.[facility]In the event this information is protected by the Federal Confidentiality of Alcohol and Drug Abuse Patient Records regulations: The Federal rules restrict any use of the information to criminally investigate or prosecute any alcohol or drug abuse patient.[facility]In the event this information is protected by the Federal Confidentiality of Alcohol and Drug Abuse Patient Records regulations: The Federal rules restrict any use of the information to criminally investigate or prosecute any alcohol or drug abuse patient.[facility]In the event this information is protected by the Federal Confidentiality of Alcohol and Drug Abuse Patient Records regulations: The Federal rules restrict any use of the information to criminally investigate or prosecute any alcohol or drug abuse patient.[facility]In the event this information is protected by the Federal Confidentiality of Alcohol and Drug Abuse Patient Records regulations: The Federal rules restrict any use of the information to criminally investigate or prosecute any alcohol or drug abuse patient.[facility]In the event this information is protected by the Federal Confidentiality of Alcohol and Drug Abuse Patient Records regulations: The Federal rules restrict any use of the information to criminally investigate or prosecute any alcohol or drug abuse patient.[facility]In the event this information is protected by the Federal Confidentiality of Alcohol and Drug Abuse Patient Records regulations: The Federal rules restrict any use of the information to criminally investigate or prosecute any alcohol or drug abuse patient.[facility]In the event this information is protected by the Federal Confidentiality of Alcohol and Drug Abuse Patient Records regulations: The Federal rules restrict any use of the information to criminally investigate or prosecute any alcohol or drug abuse patient.[facility]In the event this information is protected by the Federal Confidentiality of Alcohol and Drug Abuse Patient Records regulations: The Federal rules restrict any use of the information to criminally investigate or prosecute any alcohol or drug abuse patient.[facility]In the event this information is protected by the Federal Confidentiality of Alcohol and Drug Abuse Patient Records regulations: The Federal rules restrict any use of the information to criminally investigate or prosecute any alcohol or drug abuse patient.[facility]In the event this information is protected by the Federal Confidentiality of Alcohol and Drug Abuse Patient Records regulations: The Federal rules restrict any use of the information to criminally investigate or prosecute any alcohol or drug abuse patient.[facility]In the event this information is protected by the Federal Confidentiality of Alcohol and Drug Abuse Patient Records regulations: The Federal rules restrict any use of the information to criminally investigate or prosecute any alcohol or drug abuse patient.[facility]In the event this information is protected by the Federal Confidentiality of Alcohol and Drug Abuse Patient Records regulations: The Federal rules restrict any use of the information to criminally investigate or prosecute any alcohol or drug abuse patient.[facility]In the event this information is protected by the Federal Confidentiality of Alcohol and Drug Abuse Patient Records regulations: The Federal rules restrict any use of the information to criminally investigate or prosecute any alcohol or drug abuse patient.[facility]In the event this information is protected by the Federal Confidentiality of Alcohol and Drug Abuse Patient Records regulations: The Federal rules restrict any use of the information to criminally investigate or prosecute any alcohol or drug abuse patient.[facility]In the event this information is protected by the Federal Confidentiality of Alcohol and Drug Abuse Patient Records regulations: The Federal rules restrict any use of the information to criminally investigate or prosecute any alcohol or drug abuse patient.[facility]In the event this information is protected by the Federal Confidentiality of Alcohol and Drug Abuse Patient Records regulations: The Federal rules restrict any use of the information to criminally investigate or prosecute any alcohol or drug abuse patient.[facility]In the event this information is protected by the Federal Confidentiality of Alcohol and Drug Abuse Patient Records regulations: The Federal rules restrict any use of the information to criminally investigate or prosecute any alcohol or drug abuse patient.[facility]In the event this information is protected by the Federal Confidentiality of Alcohol and Drug Abuse Patient Records regulations: The Federal rules restrict any use of the information to criminally investigate or prosecute any alcohol or drug abuse patient.[facility]In the event this information is protected by the Federal Confidentiality of Alcohol and Drug Abuse Patient Records regulations: The Federal rules restrict any use of the information to criminally investigate or prosecute any alcohol or drug abuse patient.[facility]In the event this information is protected by the Federal Confidentiality of Alcohol and Drug Abuse Patient Records regulations: The Federal rules restrict any use of the information to criminally investigate or prosecute any alcohol or drug abuse patient.[facility]In the event this information is protected by the Federal Confidentiality of Alcohol and Drug Abuse Patient Records regulations: The Federal rules restrict any use of the information to criminally investigate or prosecute any alcohol or drug abuse patient.[facility]In the event this information is protected by the Federal Confidentiality of Alcohol and Drug Abuse Patient Records regulations: The Federal rules restrict any use of the information to criminally investigate or prosecute any alcohol or drug abuse patient.[facility]In the event this information is protected by the Federal Confidentiality of Alcohol and Drug Abuse Patient Records regulations: The Federal rules restrict any use of the information to criminally investigate or prosecute any alcohol or drug abuse patient.[facility]In the event this information is protected by the Federal Confidentiality of Alcohol and Drug Abuse Patient Records regulations: The Federal rules restrict any use of the information to criminally investigate or prosecute any alcohol or drug abuse patient.[facility]In the event this information is protected by the Federal Confidentiality of Alcohol and Drug Abuse Patient Records regulations: The Federal rules restrict any use of the information to criminally investigate or prosecute any alcohol or drug abuse patient.[facility]In the event this information is protected by the Federal Confidentiality of Alcohol and Drug Abuse Patient Records regulations: The Federal rules restrict any use of the information to criminally investigate or prosecute any alcohol or drug abuse patient.[facility]In the event this information is protected by the Federal Confidentiality of Alcohol and Drug Abuse Patient Records regulations: The Federal rules restrict any use of the information to criminally investigate or prosecute any alcohol or drug abuse patient.[facility]In the event this information is protected by the Federal Confidentiality of Alcohol and Drug Abuse Patient Records regulations: The Federal rules restrict any use of the information to criminally investigate or prosecute any alcohol or drug abuse patient.[facility]In the event this information is protected by the Federal Confidentiality of Alcohol and Drug Abuse Patient Records regulations: The Federal rules restrict any use of the information to criminally investigate or prosecute any alcohol or drug abuse patient.[facility]In the event this information is protected by the Federal Confidentiality of Alcohol and Drug Abuse Patient Records regulations: The Federal rules restrict any use of the information to criminally investigate or prosecute any alcohol or drug abuse patient.[facility]In the event this information is protected by the Federal Confidentiality of Alcohol and Drug Abuse Patient Records regulations: The Federal rules restrict any use of the information to criminally investigate or prosecute any alcohol or drug abuse patient.[facility]In the event this information is protected by the Federal Confidentiality of Alcohol and Drug Abuse Patient Records regulations: The Federal rules restrict any use of the information to criminally investigate or prosecute any alcohol or drug abuse patient.[facility]In the event this information is protected by the Federal Confidentiality of Alcohol and Drug Abuse Patient Records regulations: The Federal rules restrict any use of the information to criminally investigate or prosecute any alcohol or drug abuse patient.[facility]In the event this information is protected by the Federal Confidentiality of Alcohol and Drug Abuse Patient Records regulations: The Federal rules restrict any use of the information to criminally investigate or prosecute any alcohol or drug abuse patient.[facility]In the event this information is protected by the Federal Confidentiality of Alcohol and Drug Abuse Patient Records regulations: The Federal rules restrict any use of the information to criminally investigate or prosecute any alcohol or drug abuse patient.[facility] the event this information is protected by the Federal Confidentiality of Alcohol and Drug Abuse Patient Records regulations: The Federal rules restrict any use of the information to criminally investigate or prosecute any alcohol or drug abuse patient.[facility]In the event this information is protected by the Federal Confidentiality of Alcohol and Drug Abuse Patient Records regulations: The Federal rules restrict any use of the information to criminally investigate or prosecute any alcohol or drug abuse patient.[facility]In the event this information is protected by the Federal Confidentiality of Alcohol and Drug Abuse Patient Records regulations: The Federal rules restrict any use of the information to criminally investigate or prosecute any alcohol or drug abuse patient.[facility]In the event this information is protected by the Federal Confidentiality of Alcohol and Drug Abuse Patient Records regulations: The Federal rules restrict any use of the information to criminally investigate or prosecute any alcohol or drug abuse patient.[facility]In the event this information is protected by the Federal Confidentiality of Alcohol and Drug Abuse Patient Records regulations: The Federal rules restrict any use of the information to criminally investigate or prosecute any alcohol or drug abuse patient.[facility]In the event this information is protected by the Federal Confidentiality of Alcohol and Drug Abuse Patient Records regulations: The Federal rules restrict any use of the information to criminally investigate or prosecute any alcohol or drug abuse patient.[facility]In the event this information is protected by the Federal Confidentiality of Alcohol and Drug Abuse Patient Records regulations: The Federal rules restrict any use of the information to criminally investigate or prosecute any alcohol or drug abuse patient.[facility]In the event this information is protected by the Federal Confidentiality of Alcohol and Drug Abuse Patient Records regulations: The Federal rules restrict any use of the information to criminally investigate or prosecute any alcohol or drug abuse patient.[facility]In the event this information is protected by the Federal Confidentiality of Alcohol and Drug Abuse Patient Records regulations: The Federal rules restrict any use of the information to criminally investigate or prosecute any alcohol or drug abuse patient.[facility]In the event this information is protected by the Federal Confidentiality of Alcohol and Drug Abuse Patient Records regulations: The Federal rules restrict any use of the information to criminally investigate or prosecute any alcohol or drug abuse patient.[facility]In the event this information is protected by the Federal Confidentiality of Alcohol and Drug Abuse Patient Records regulations: The Federal rules restrict any use of the information to criminally investigate or prosecute any alcohol or drug abuse patient.[facility]In the event this information is protected by the Federal Confidentiality of Alcohol and Drug Abuse Patient Records regulations: The Federal rules restrict any use of the information to criminally investigate or prosecute any alcohol or drug abuse patient.[facility]In the event this information is protected by the Federal Confidentiality of Alcohol and Drug Abuse Patient Records regulations: The Federal rules restrict any use of the information to criminally investigate or prosecute any alcohol or drug abuse patient.[facility]In the event this information is protected by the Federal Confidentiality of Alcohol and Drug Abuse Patient Records regulations: The Federal rules restrict any use of the information to criminally investigate or prosecute any alcohol or drug abuse patient.[facility]In the event this information is protected by the Federal Confidentiality of Alcohol and Drug Abuse Patient Records regulations: The Federal rules restrict any use of the information to criminally investigate or prosecute any alcohol or drug abuse patient.[facility]In the event this information is protected by the Federal Confidentiality of Alcohol and Drug Abuse Patient Records regulations: The Federal rules restrict any use of the information to criminally investigate or prosecute any alcohol or drug abuse patient.[facility] HealthIn the event this information is protected by the Federal Confidentiality of Alcohol and Drug Abuse Patient Records regulations: The Federal rules restrict any use of the information to criminally investigate or prosecute any alcohol or drug abuse patient.[facility] HealthIn the event this information is protected by the Federal Confidentiality of Alcohol and Drug Abuse Patient Records regulations: The Federal rules restrict any use of the information to criminally investigate or prosecute any alcohol or drug abuse patient.[facility] HealthIn the event this information is protected by the Federal Confidentiality of Alcohol and Drug Abuse Patient Records regulations: The Federal rules restrict any use of the information to criminally investigate or prosecute any alcohol or drug abuse patient.[facility] HealthIn the event this information is protected by the Federal Confidentiality of Alcohol and Drug Abuse Patient Records regulations: The Federal rules restrict any use of the information to criminally investigate or prosecute any alcohol or drug abuse patient.[facility] HealthIn the event this information is protected by the Federal Confidentiality of Alcohol and Drug Abuse Patient Records regulations: The Federal rules restrict any use of the information to criminally investigate or prosecute any alcohol or drug abuse patient.[facility] HealthIn the event this information is protected by the Federal Confidentiality of Alcohol and Drug Abuse Patient Records regulations: The Federal rules restrict any use of the information to criminally investigate or prosecute any alcohol or drug abuse patient.[facility] HealthIn the event this information is protected by the Federal Confidentiality of Alcohol and Drug Abuse Patient Records regulations: The Federal rules restrict any use of the information to criminally investigate or prosecute any alcohol or drug abuse patient.[facility] HealthIn the event this information is protected by the Federal Confidentiality of Alcohol and Drug Abuse Patient Records regulations: The Federal rules restrict any use of the information to criminally investigate or prosecute any alcohol or drug abuse patient.[facility] HealthIn the event this information is protected by the Federal Confidentiality of Alcohol and Drug Abuse Patient Records regulations: The Federal rules restrict any use of the information to criminally investigate or prosecute any alcohol or drug abuse patient.[facility] HealthIn the event this information is protected by the Federal Confidentiality of Alcohol and Drug Abuse Patient Records regulations: The Federal rules restrict any use of the information to criminally investigate or prosecute any alcohol or drug abuse patient.[facility] HealthIn the event this information is protected by the Federal Confidentiality of Alcohol and Drug Abuse Patient Records regulations: The Federal rules restrict any use of the information to criminally investigate or prosecute any alcohol or drug abuse patient.[facility] HealthIn the event this information is protected by the Federal Confidentiality of Alcohol and Drug Abuse Patient Records regulations: The Federal rules restrict any use of the information to criminally investigate or prosecute any alcohol or drug abuse patient.[facility] HealthIn the event this information is protected by the Federal Confidentiality of Alcohol and Drug Abuse Patient Records regulations: The Federal rules restrict any use of the information to criminally investigate or prosecute any alcohol or drug abuse patient.[facility] HealthIn the event this information is protected by the Federal Confidentiality of Alcohol and Drug Abuse Patient Records regulations: The Federal rules restrict any use of the information to criminally investigate or prosecute any alcohol or drug abuse patient.[facility] HealthIn the event this information is protected by the Federal Confidentiality of Alcohol and Drug Abuse Patient Records regulations: The Federal rules restrict any use of the information to criminally investigate or prosecute any alcohol or drug abuse patient.[facility] HealthIn the event this information is protected by the Federal Confidentiality of Alcohol and Drug Abuse Patient Records regulations: The Federal rules restrict any use of the information to criminally investigate or prosecute any alcohol or drug abuse patient.[facility] HealthIn the event this information is protected by the Federal Confidentiality of Alcohol and Drug Abuse Patient Records regulations: The Federal rules restrict any use of the information to criminally investigate or prosecute any alcohol or drug abuse patient.[facility] HealthIn the event this information is protected by the Federal Confidentiality of Alcohol and Drug Abuse Patient Records regulations: The Federal rules restrict any use of the information to criminally investigate or prosecute any alcohol or drug abuse patient.[facility] HealthIn the event this information is protected by the Federal Confidentiality of Alcohol and Drug Abuse Patient Records regulations: The Federal rules restrict any use of the information to criminally investigate or prosecute any alcohol or drug abuse patient.[facility] HealthIn the event this information is protected by the Federal Confidentiality of Alcohol and Drug Abuse Patient Records regulations: The Federal rules restrict any use of the information to criminally investigate or prosecute any alcohol or drug abuse patient.[facility] HealthIn the event this information is protected by the Federal Confidentiality of Alcohol and Drug Abuse Patient Records regulations: The Federal rules restrict any use of the information to criminally investigate or prosecute any alcohol or drug abuse patient.[facility] HealthIn the event this information is protected by the Federal Confidentiality of Alcohol and Drug Abuse Patient Records regulations: The Federal rules restrict any use of the information to criminally investigate or prosecute any alcohol or drug abuse patient.[facility] HealthIn the event this information is protected by the Federal Confidentiality of Alcohol and Drug Abuse Patient Records regulations: The Federal rules restrict any use of the information to criminally investigate or prosecute any alcohol or drug abuse patient.[facility] HealthIn the event this information is protected by the Federal Confidentiality of Alcohol and Drug Abuse Patient Records regulations: The Federal rules restrict any use of the information to criminally investigate or prosecute any alcohol or drug abuse patient.[facility] HealthIn the event this information is protected by the Federal Confidentiality of Alcohol and Drug Abuse Patient Records regulations: The Federal rules restrict any use of the information to criminally investigate or prosecute any alcohol or drug abuse patient.[facility] HealthIn the event this information is protected by the Federal Confidentiality of Alcohol and Drug Abuse Patient Records regulations: The Federal rules restrict any use of the information to criminally investigate or prosecute any alcohol or drug abuse patient.[facility] Care Teams (unrecognized sec tion and content) Corporate Compliance Officer Relationship Specialty Start Date End Date Gerard Le PA-C [address] [place], [place] [id number] PCP - General Family Practice 11/26/16 No, Referral Referring 01/31/19 [place] [address] [address] [place], [place] [id number] Primary Staff Physician Cardiology 07/15/21 Corporate Compliance Officer Relationship Specialty Start Date End Date Gerard Le PA-C [address] [place], [place] 892041 PCP - General Family Practice 11/26/16 No, Referral Referring 01/31/19 [place] [address] [address] [place], [place] [id number] Primary Staff Physician Cardiology 07/15/21 Corporate Compliance Officer Relationship Specialty Start Date End Date Gerard Le PA-C [address] [place], [place] [id number] PCP - General Family Practice 11/26/16 No, Referral Referring 01/31/19 [place] [address] [place] [address] Primary Staff Physician Cardiology 07/15/21 Corporate Compliance Officer Relationship Specialty Start Date End Date Gerard Le PA-C [address] [place], [place] [id number] PCP - General Family Practice 11/26/16 No, Referral Referring 01/31/19 [place] [address] [place], [place] 9590029 [phone] Primary Staff Physician Cardiology 07/15/21 Corporate Compliance Officer Relationship Specialty Start Date End Date Gerard Le PA-C [address] [place] [address] PCP - General Family Practice 11/26/16 No, Referral Referring 01/31/[address] [place] [address] [facility] [place] [address] Primary Staff Physician Cardiology 07/15/21 Corporate Compliance Officer Relationship Specialty Start Date End Date Gerard Le PA-C [address] [place] [address] PCP - General Family Practice 11/26/16 No, Referral Referring 01/31/19 [place] [address] [place] [address] Primary Staff Physician Cardiology 07/15/21 Corporate Compliance Officer Relationship Specialty Start Date End Date Gerard Le PA-C [address] [place] [address] PCP - General Family Practice 11/26/16 No, Referral Referring 01/31/[address] [place] [address] [facility] [place] [address] Primary Staff Physician Cardiology 07/15/21 Corporate Compliance Officer Relationship Specialty Start Date End Date Gerard Le PA-C [address] [place] [address] PCP - General Family Practice 11/26/16 No, Referral Referring 01/31/[address] [place] [address] [facility] [place] [address] Primary Staff Physician Cardiology 07/15/21 Corporate Compliance Officer Relationship Specialty Start Date End Date Gerard Le PA-C [address] [place] [address] PCP - General Family Practice 11/26/16 No, Referral Referring 01/31/19 [place] [address] [place] [address] Primary Staff Physician Cardiology 07/15/21 Corporate Compliance Officer Relationship Specialty Start Date End Date Gerard Le PA-C [address] [place] [address] PCP - General Family Practice 11/26/16 No, Referral Referring 01/31/19 [place] [address] [place] [address] Primary Staff Physician Cardiology 07/15/21 Corporate Compliance Officer Relationship Specialty Start Date End Date Gerard Le PA-C [address] [place] [address] PCP - General Family Practice 11/26/16 No, Referral Referring 01/31/[address] [place] [address] [facility] [place] [address] Primary Staff Physician Cardiology 07/15/21 Corporate Compliance Officer Relationship Specialty Start Date End Date Gerard Le PA-C [address] [place] [address] PCP - General Family Practice 11/26/16 No, Referral Referring 01/31/[address] [place] [address] [facility] [place] [address] Primary Staff Physician Cardiology 07/15/21 Corporate Compliance Officer Relationship Specialty Start Date End Date Gerard Le PA-C [address] [place], [place] 765221 PCP - General Family Practice 11/26/16 No, Referral Referring 01/31/19 [place] [address] [place], [place] 1573026 Primary Staff Physician Cardiology 07/15/21 Corporate Compliance Officer Relationship Specialty Start Date End Date Gerard Le PA-C [address] [place] [address] PCP - General Family Practice 11/26/16 No, Referral Referring 01/31/19 [place] [address] [place], [place] 1669250 [phone] Primary Staff Physician Cardiology 07/15/21 Corporate Compliance Officer Relationship Specialty Start Date End Date Gerard Le PA-C [address] [place] [address] PCP - General Family Practice 11/26/16 No, Referral Referring 01/31/19 [place] [address] [place] [address] Primary Staff Physician Cardiology 07/15/21 Corporate Compliance Officer Relationship Specialty Start Date End Date Gerard Le PA-C [address] [place] [address] PCP - General Family Practice 11/26/16 No, Referral Referring 01/31/[address] [place] [address] [facility] [place] [address] Primary Staff Physician Cardiology 07/15/21 Corporate Compliance Officer Relationship Specialty Start Date End Date Gerard Le PA-C [address] [place] [address] PCP - General Family Practice 11/26/16 No, Referral Referring 01/31/19 [place] [address] [place], [place] [id number] Primary Staff Physician Cardiology 07/15/21 Corporate Compliance Officer Relationship Specialty Start Date End Date Gerard Le PA-C [address] [place] [address] PCP - General Family Practice 11/26/16 No, Referral Referring 01/31/19 [place] [address] [place], [place] [id number] Primary Staff Physician Cardiology 07/15/21 Sheridan Cervantes RN Primary Care Block Sorter 02/25/22 03/27/22 Corporate Compliance Officer Relationship Specialty Start Date End Date Gerard Le PA-C [address] [place] [address] PCP - General Family Practice 11/26/16 No, Referral Referring 01/31/19 [place] [address] [place], [place] [id number] Primary Staff Physician Cardiology 07/15/21 Sheridan Cervantes RN Primary Care Block Sorter 02/25/22 03/27/22 Carla Burdick MD [address] [facility] [place] [address] Cardiology 03/03/22 03/03/22 Carla Burdick MD [address] [facility] [place] [address] Primary Staff Physician Cardiology 03/03/22 Corporate Compliance Officer Relationship Specialty Start Date End Date Gerard Le PA-C [address] [place] [address] PCP - General Family Practice 11/26/16 No, Referral Referring 01/31/[address] [place] [address] [facility] [place], [place] 1814126 Primary Staff Physician Cardiology 07/15/21 Sheridan Cervantes RN Primary Care Block Sorter 02/25/22 03/27/22 Carla Burdick MD [address] [place], [place] 359002 [phone] Cardiology 03/03/22 03/03/22 Carla Burdick MD [address] [place], [place] 224411 Primary Staff Physician Cardiology 03/03/22 Corporate Compliance Officer Relationship Specialty Start Date End Date Gerard Le PA-C [address] [place] [address] PCP - General Family Practice 11/26/16 No, Referral Referring 01/31/19 [place] [address] [address] [place], [place] [id number] Primary Staff Physician Cardiology 07/15/21 Sheridan Cervantes RN Primary Care Block Sorter 02/25/22 03/27/22 Carla Burdick MD [address] [place], [place] 818571 Primary Staff Physician Cardiology 03/03/22 Corporate Compliance Officer Relationship Specialty Start Date End Date Gerard Le PA-C [address] [place] [address] PCP - General Family Practice 11/26/16 No, Referral Referring 01/31/19 [place] [address] [address] [place], [place] 4559840 [phone] Primary Staff Physician Cardiology 07/15/21 Sheridan Cervantes, garbage truck driver Block Sorter 02/25/22 03/27/22 Carla Burdick MD [address] [place] [address] Primary Staff Physician Cardiology 03/03/22 Corporate Compliance Officer Relationship Specialty Start Date End Date Gerard Le PA-C [address] [place] [address] PCP - General Family Practice 11/26/16 No, Referral Referring 01/31/19 [place] [address] [place] [address] Primary Staff Physician Cardiology 07/15/21 Sheridan Cervantes RN Primary Care Block Sorter 02/25/22 03/27/22 Carla Burdick MD [address] [place] [address] Primary Staff Physician Cardiology 03/03/22 Corporate Compliance Officer Relationship Specialty Start Date End Date Gerard Le PA-C [address] [place] [address] PCP - General Family Practice 11/26/16 No, Referral Referring 01/31/19 [place] [address] [place] [address] Primary Staff Physician Cardiology 07/15/21 Carla Burdick MD [address] [place] [address] Primary Staff Physician Cardiology 03/03/22 Corporate Compliance Officer Relationship Specialty Start Date End Date Gerard Le PA-C [address] [place] [address] PCP - General Family Practice 11/26/16 No, Referral Referring 01/31/[address] [place] [address] [facility] [place] [address] Primary Staff Physician Cardiology 07/15/21 Carla Burdick MD [address] [place] [address] Primary Staff Physician Cardiology 03/03/22 Corporate Compliance Officer Relationship Specialty Start Date End Date Gerard Le PA-C [address] [place] [address] PCP - General Family Medicine 11/26/16 No, Referral Referring 01/31/19 [place] [address] [place] [address] Primary Staff Physician Cardiology 07/15/21 Carla Burdick MD [address] [facility] [place] [address] Primary Staff Physician Cardiology 03/03/22 Corporate Compliance Officer Relationship Specialty Start Date End Date Gerard Le PA-C [address] [place] [address] PCP - General Family Medicine 11/26/16 No, Referral Referring 01/31/[address] [place] [address] [facility] [address] Primary Staff Physician Cardiology 07/15/21 Carla Burdick MD [address] [facility] [place] [place] [address] Primary Staff Physician Cardiology 03/03/22 Corporate Compliance Officer Relationship Specialty Start Date End Date Gerard Le PA-C [address] [place] [address] PCP - General Family Medicine 11/26/16 No, Referral Referring 01/31/[address] [place] [address] [facility] [address] Primary Staff Physician Cardiology 07/15/21 Carla Burdick MD [address] [facility] [place] [address] Primary Staff Physician Cardiology 03/03/22 Corporate Compliance Officer Relationship Specialty Start Date End Date Gerard Le, PACarolineC [address] [place] [address] PCP - General Family Medicine 11/26/16 No, Referral Referring 01/31/[address] [place] [address] [facility] [address] Primary Staff Physician Cardiology 07/15/21 Carla Burdick MD [address] [place] [address] Cardiology 03/03/22 03/03/22 Carla Burdick MD [address] [facility] [place] [address] Primary Staff Physician Cardiology 03/03/22 Corporate Compliance Officer Relationship Specialty Start Date End Date Gerard Le PA-C [address] [place] [address] PCP - General Family Medicine 11/26/16 No, Referral Referring 01/31/[address] [place] [address] [facility] [address] Primary Staff Physician Cardiology 07/15/21 Carla Burdick MD [address] [place] [address] Primary Staff Physician Cardiology 03/03/22 Corporate Compliance Officer Relationship Specialty Start Date End Date Gerard Le PA-C [address] [place] [address] PCP - General Family Medicine 11/26/16 No, Referral Referring 01/31/[address] [place] [address] [facility] [address] Primary Staff Physician Cardiology 07/15/21 Carla Burdick MD [address] [place] [address] Primary Staff Physician Cardiology 03/03/22 Corporate Compliance Officer Relationship Specialty Start Date End Date Gerard Le PA-C [address] [place] [address] PCP - General Family Medicine 11/26/16 No, Referral Referring 01/31/[address] [place] [address] [facility] [address] Primary Staff Physician Cardiology 07/15/21 Carla Burdick MD [address] [place] [address] Primary Staff Physician Cardiology 03/03/22 Corporate Compliance Officer Relationship Specialty Start Date End Date Gerard Le PA-C [address] [place] [address] PCP - General Family Medicine 11/26/16 No, Referral Referring 01/31/[address] [place] [address] [facility] [place] [address] Primary Staff Physician Cardiology 07/15/21 Carla Burdick MD [address] [place] [address] Primary Staff Physician Cardiology 03/03/22 Corporate Compliance Officer Relationship Specialty Start Date End Date Gerard Le PA-C [address] [place] [address] PCP - General Family Medicine 11/26/16 No, Referral Referring 01/31/19 [place] [address] [address] [place], [place] 5603326 Primary Staff Physician Cardiology 07/15/21 Carla Burdick MD [address] [place] [address] Primary Staff Physician Cardiology 03/03/22 Corporate Compliance Officer Relationship Specialty Start Date End Date Gerard Le PA-C [address] [place] [address] PCP - General Family Medicine 11/26/16 No, Referral Referring 01/31/19 [place] [address] [address] [place], [place] 6062326 Primary Staff Physician Cardiology 07/15/21 Carla Burdick MD [address] [place] [address] Primary Staff Physician Cardiology 03/03/22 Sonny Lund MD [address] [place] [address] Hematology/Oncology 04/22/22 Corporate Compliance Officer Relationship Specialty Start Date End Date Gerard Le PA-C [address] [place] [address] PCP - General Family Medicine 11/26/16 No, Referral Referring 01/31/19 [place] [address] [address] [place], [place] 9187401 [phone] Primary Staff Physician Cardiology 07/15/21 Carla Burdick MD [address] [place] [address] Primary Staff Physician Cardiology 03/03/22 Sonny Lund MD [address] [place] [address] Hematology/Oncology 04/22/22 Corporate Compliance Officer Relationship Specialty Start Date End Date Gerard Le PA-C [address] [place] [address] PCP - General Family Medicine 11/26/16 No, Referral Referring 01/31/19 [place] [address] [place] [address] Primary Staff Physician Cardiology 07/15/21 Carla Burdick MD [address] [place] [address] Primary Staff Physician Cardiology 03/03/22 Sonny Lund MD [address] [place] [address] Hematology/Oncology 04/22/22 Corporate Compliance Officer Relationship Specialty Start Date End Date Gerard Le PA-C [address] [place] [address] PCP - General Family Medicine 11/26/16 No, Referral Referring 01/31/19 [place] [address] [place] [address] Primary Staff Physician Cardiology 07/15/21 Carla Burdick MD [address] [facility] [place] [place] [address] Primary Staff Physician Cardiology 03/03/22 Sonny Lund MD [address] [place] [address] Hematology/Oncology 04/22/22 Corporate Compliance Officer Relationship Specialty Start Date End Date Gerard Le PA-C [address] [place] [address] PCP - General Family Medicine 11/26/16 No, Referral Referring 01/31/[address] [place] [address] [facility] [place], [place] 0591698 [phone] Primary Staff Physician Cardiology 07/15/21 Carla Burdick MD [address] [facility] [place] [address] Primary Staff Physician Cardiology 03/03/22 Sonny Lund MD [address] [place] [address] Hematology/Oncology 04/22/22 Corporate Compliance Officer Relationship Specialty Start Date End Date Gerard Le PA-C [address] [place] [address] PCP - General Family Medicine 11/26/16 No, Referral Referring 01/31/19 [place] [address] [place] [address] Primary Staff Physician Cardiology 07/15/21 Carla Burdick MD [address] [place] [place] [address] Primary Staff Physician Cardiology 03/03/22 Sonny Lund MD [address] [place] [address] Hematology/Oncology 04/22/22 Corporate Compliance Officer Relationship Specialty Start Date End Date Gerard Le PA-C [address] [place] [address] PCP - General Family Medicine 11/26/16 No, Referral Referring 01/31/19 [place] [address] [place] [address] Primary Staff Physician Cardiology 07/15/21 Carla Burdick MD [address] [place] [address] Primary Staff Physician Cardiology 03/03/22 Sonny Lund MD [address] [place] [address] Hematology/Oncology 04/22/22 Corporate Compliance Officer Relationship Specialty Start Date End Date Gerard Le PA-C [address] [place] [address] PCP - General Family Medicine 11/26/16 No, Referral Referring 01/31/19 [place] [address] [place] [address] Primary Staff Physician Cardiology 07/15/21 Carla Burdick MD [address] [place] [address] Primary Staff Physician Cardiology 03/03/22 Sonny Lund MD [address] [place] [address] Hematology/Oncology 04/22/22 Corporate Compliance Officer Relationship Specialty Start Date End Date Gerard Le PA-C [address] [place] [address] PCP - General Family Medicine 11/26/16 No, Referral Referring 01/31/19 [place] [address] [place], [place] 4272209 [phone] Primary Staff Physician Cardiology 07/15/21 Carla Burdick MD [address] [place] [address] Primary Staff Physician Cardiology 03/03/22 Sonny Lund MD [address] [place] [address] Hematology/Oncology 04/22/22 Corporate Compliance Officer Relationship Specialty Start Date End Date Gerard Le PA-C [address] [place] [address] PCP - General Family Medicine 11/26/16 No, Referral Referring 01/31/19 [place] [address] [place] [address] Primary Staff Physician Cardiology 07/15/21 Carla Burdick MD [address] [place] [address] Primary Staff Physician Cardiology 03/03/22 Sonny Lund MD [address] [place] [address] Hematology/Oncology 04/22/22 Corporate Compliance Officer Relationship Specialty Start Date End Date Gerard Le PA-C [address] [place] [address] PCP - General Family Medicine 11/26/16 No, Referral Referring 01/31/[address] [place] [address] [facility] [place] [address] Primary Staff Physician Cardiology 07/15/21 Carla Burdick MD [address] [place] [address] Primary Staff Physician Cardiology 03/03/22 Sonny Lund MD [address] [facility] [facility] [place] [address] Hematology/Oncology 04/22/22 Corporate Compliance Officer Relationship Specialty Start Date End Date Gerard Le PA-C [address] [place] [address] PCP - General Family Medicine 11/26/16 No, Referral Referring 01/31/[place] [address] [place] [address] Primary Staff Physician Cardiology 07/15/21 Carla Burdick MD [address] [facility] [place] [place] [address] Primary Staff Physician Cardiology 03/03/22 Sonny Lund MD [address] [place] [address] Hematology/Oncology 04/22/22 Corporate Compliance Officer Relationship Specialty Start Date End Date Gerard Le PA-C [address] [place] [address] PCP - General Family Medicine 11/26/16 No, Referral Referring 01/31/19 [place] [address] [place] [address] Primary Staff Physician Cardiology 07/15/21 Carla Burdick MD [address] [place] [address] Primary Staff Physician Cardiology 03/03/22 Sonny Lund MD [address] [facility] [place] [address] Hematology/Oncology 04/22/22 Corporate Compliance Officer Relationship Specialty Start Date End Date Gerard Le PA-C [address] [place] [address] PCP - General Family Medicine 11/26/16 No, Referral Referring 01/31/19 [place] [address] [address] [place], [place] 5732126 Primary Staff Physician Cardiology 07/15/21 Carla Burdick MD [address] [place] [address] Primary Staff Physician Cardiology 03/03/22 Sonny Lund MD [address] [place] [address] Hematology/Oncology 04/22/22 Corporate Compliance Officer Relationship Specialty Start Date End Date Gerard Le PA-C [address] [place] [address] PCP - General Family Medicine 11/26/16 No, Referral Referring 01/31/19 [place] [address] [address] [place], [place] 4871526 Primary Staff Physician Cardiology 07/15/21 Carla Burdick MD [address] [place] [address] Primary Staff Physician Cardiology 03/03/22 Sonny Lund MD [address] [place] [address] Hematology/Oncology 04/22/22 Corporate Compliance Officer Relationship Specialty Start Date End Date Gerard Le PA-C [address] [place] [address] PCP - General Family Medicine 11/26/16 No, Referral Referring 01/31/19 [place] [address] [address] [place], [place] 4935526 Primary Staff Physician Cardiology 07/15/21 Carla Burdick MD [address] [place] [address] Primary Staff Physician Cardiology 03/03/22 Sonny Lund MD [address] [facility] [place] [address] Hematology/Oncology 04/22/22 Corporate Compliance Officer Relationship Specialty Start Date End Date Gerard Le PA-C [address] [place] [address] PCP - General Family Medicine 11/26/16 No, Referral Referring 01/31/19 [place] [address] [place], [place] 6089226 Primary Staff Physician Cardiology 07/15/21 Carla Burdick MD [address] [place] [address] Primary Staff Physician Cardiology 03/03/22 Sonny Lund MD [address] [place] [address] Hematology/Oncology 04/22/22 Corporate Compliance Officer Relationship Specialty Start Date End Date Gerard Le PA-C [address] [place] [address] PCP - General Family Medicine 11/26/16 No, Referral Referring 01/31/19 [place] [address] [address] [place], [place] 7830826 Primary Staff Physician Cardiology 07/15/21 Carla Burdcik MD [address] [place] [address] Primary Staff Physician Cardiology 03/03/22 Sonny Lund MD [address] [place] [address] Hematology/Oncology 04/22/22 Corporate Compliance Officer Relationship Specialty Start Date End Date Gerard Le PA-C [address] [place] [address] PCP - General Family Medicine 11/26/16 No, Referral Referring 01/31/19 [place] [address] [place], [place] 6239726 Primary Staff Physician Cardiology 07/15/21 Carla Burdick MD [address] [place] [address] Primary Staff Physician Cardiology 03/03/22 Sonny Lund MD [address] [place] [address] Hematology/Oncology 04/22/22 Corporate Compliance Officer Relationship Specialty Start Date End Date Gerard Le PA-C [address] [place] [address] PCP - General Family Medicine 11/26/16 No, Referral Referring 01/31/19 [place] [address] [place], [place] 0281626 Primary Staff Physician Cardiology 07/15/21 Carla Burdick MD [address] [place] [address] Primary Staff Physician Cardiology 03/03/22 Sonny Lund MD [address] [place] [address] Hematology/Oncology 04/22/22 Corporate Compliance Officer Relationship Specialty Start Date End Date Gerard Le PA-C [address] [place] [address] PCP - General Family Medicine 11/26/16 No, Referral Referring 01/31/19 [place] [address] [place], [place] 9471026 Primary Staff Physician Cardiology 07/15/21 Carla Burdick MD [address] [place] [address] Primary Staff Physician Cardiology 03/03/22 Sonny Lund MD [address] [place] [address] Hematology/Oncology 04/22/22 Corporate Compliance Officer Relationship Specialty Start Date End Date Gerard Le PA-C [address] [place] [address] PCP - General Family Medicine 11/26/16 No, Referral Referring 01/31/19 [place] [address] [place], [place] 3213526 Primary Staff Physician Cardiology 07/15/21 Carla Burdick MD [address] [place] [address] Primary Staff Physician Cardiology 03/03/22 Sonny Lund MD [address] [place] [address] Hematology/Oncology 04/22/22 Corporate Compliance Officer Relationship Specialty Start Date End Date Gerard Le PA-C [address] [place] [address] PCP - General Family Medicine 11/26/16 No, Referral Referring 01/31/19 [place] [address] [address], [place] 3700526 Primary Staff Physician Cardiology 07/15/21 Carla Burdick MD [address] [place] [address] Primary Staff Physician Cardiology 03/03/22 Sonny Lund MD [address] [place] [address] Hematology/Oncology 04/22/22 Corporate Compliance Officer Relationship Specialty Start Date End Date Gerard Le PA-C [address] [place], [place] 199921 PCP - General Family Medicine 11/26/16 No, Referral Referring 01/31/19 [place] [address] [address] [place], [place] 0039926 Primary Staff Physician Cardiology 07/15/21 Carla Burdick MD [address] [place] [address] Primary Staff Physician Cardiology 03/03/22 Sonny Lund MD [address] [place] [address] Hematology/Oncology 04/22/22 Corporate Compliance Officer Relationship Specialty Start Date End Date Gerard Le PA-C [address] [place] [address] PCP - General Family Medicine 11/26/16 No, Referral Referring 01/31/19 [place] [address] [place], [place] 8556726 Primary Staff Physician Cardiology 07/15/21 Carla Burdick MD [address] [place] [address] Primary Staff Physician Cardiology 03/03/22 Sonny Lund MD [address] [place] [place], [place] 397711 Hematology/Oncology 04/22/22 Corporate Compliance Officer Relationship Specialty Start Date End Date Gerard Le PA-C [address] [place], [place] 569571 PCP - General Family Medicine 11/26/16 No, Referral Referring 01/31/19 [place] [address] [place] [place], [place] 7043826 Primary Staff Physician Cardiology 07/15/21 Carla Burdick MD [address] [place] [place], [place] 533071 Primary Staff Physician Cardiology 03/03/22 Sonny Lund MD [address] [place] [place], [place] 4537[address] Hematology/Oncology 04/22/22 Corporate Compliance Officer Relationship Specialty Start Date End Date Gerard Le PA-C [address] [place] [address] PCP - General Family Medicine 11/26/16 No, Referral Referring 01/31/19 [place] [address] [place], [place] 7569826 Primary Staff Physician Cardiology 07/15/21 Carla Burdick MD [address] [place] [address] Primary Staff Physician Cardiology 03/03/22 Sonny Lund MD [address] [place] [place], [place] 747161 Hematology/Oncology 04/22/22 Corporate Compliance Officer Relationship Specialty Start Date End Date Gerard Le PA-C [address] [place], [place] 378011 PCP - General Family Medicine 11/26/16 No, Referral Referring 01/31/19 [place] [address] [place], [place] 5032726 Primary Staff Physician Cardiology 07/15/21 Carla Burdick MD [address] [place] [place], [place] 604[address] Primary Staff Physician Cardiology 03/03/22 Sonny Lund MD [address] [place] [place], [place] 425021 Hematology/Oncology 04/22/22 Corporate Compliance Officer Relationship Specialty Start Date End Date Gerard Le PA-C [address] [place] [address] PCP - General Family Medicine 11/26/16 No, Referral Referring 01/31/19 [place] [address] [place], [place] 1722126 Primary Staff Physician Cardiology 07/15/21 Carla Burdick MD [address] [place] [address] Primary Staff Physician Cardiology 03/03/22 Sonny Lund MD [address] [place] [place], [place] 178591 Hematology/Oncology 04/22/22 Corporate Compliance Officer Relationship Specialty Start Date End Date Gerard Le PA-C [address] [place], [place] 097221 PCP - General Family Medicine 11/26/16 No, Referral Referring 01/31/19 [place] [address] [place] [place], [place] 4475526 Primary Staff Physician Cardiology 07/15/21 Carla Burdick MD [address] [place] [place], [place] 848831 Primary Staff Physician Cardiology 03/03/22 Sonny Lund MD [address] [place], [place] 82723691 Hematology/Oncology 04/22/22 Corporate Compliance Officer Relationship Specialty Start Date End Date Gerard Le PA-C [address] [place] [address] PCP - General Family Medicine 11/26/16 No, Referral Referring 01/31/19 [place] [address] [place], [place] 1499026 Primary Staff Physician Cardiology 07/15/21 Carla Burdikc MD [address] [place] [address] Primary Staff Physician Cardiology 03/03/22 Sonny Lund MD [address] [place] [place], [place] 315961 Hematology/Oncology 04/22/22 Corporate Compliance Officer Relationship Specialty Start Date End Date Gerard Le PA-C [address] [place], [place] 911681 PCP - General Family Medicine 11/26/16 No, Referral Referring 01/31/19 [place] [address] [place], [place] 6459526 Primary Staff Physician Cardiology 07/15/21 Carla Burdick MD [address] [facility] [place], [place] 627431 Primary Staff Physician Cardiology 03/03/22 Sonny Lund MD [address] [place] [place], [place] 0[address]201 Hematology/Oncology 04/22/22 Corporate Compliance Officer Relationship Specialty Start Date End Date Gerard Le PA-C [address] [place] [address] PCP - General Family Medicine 11/26/16 No, Referral Referring 01/31/19 [place] [address] [address] [place], [place] 3113426 Primary Staff Physician Cardiology 07/15/21 Carla Burdick MD [address] [facility] [place] [address] Primary Staff Physician Cardiology 03/03/22 Sonny Lund MD [address] [place] [place] 412391 Hematology/Oncology 04/22/22 Corporate Compliance Officer Relationship Specialty Start Date End Date Gerard Le PA-C [address] [place], [place] 800301 PCP - General Family Medicine 11/26/16 No, Referral Referring 01/31/[place] [address] [address] [place], [place] 8750626 Primary Staff Physician Cardiology 07/15/21 Carla Burdick MD [address] [facility] [place], [place] 450721 Primary Staff Physician Cardiology 03/03/22 Sonny Lund MD [address] [place], [place] 390971 Hematology/Oncology 04/22/22 Corporate Compliance Officer Relationship Specialty Start Date End Date Gerard Le PA-C [address] [place] [address] PCP - General Family Medicine 11/26/16 No, Referral Referring 01/31/19 [place] [address] [place], [place] 4212626 Primary Staff Physician Cardiology 07/15/21 Carla Burdick MD [address] [facility] [place], [place] 660141 Primary Staff Physician Cardiology 03/03/22 Sonny Lund MD [address] [place] [place], [place] 9[address]31 Hematology/Oncology 04/22/22 Corporate Compliance Officer Relationship Specialty Start Date End Date Gerard Le PA-C [address] [place], [place] 390731 PCP - General Family Medicine 11/26/16 No, Referral Referring 01/31/19 [place] [address] [place], [place] 0102326 Primary Staff Physician Cardiology 07/15/21 Carla Burdick MD [address] [facility] [place], [place] 625141 Primary Staff Physician Cardiology 03/03/22 Sonny Lund MD [address] [place] [place] 325451 Hematology/Oncology 04/22/22 Corporate Compliance Officer Relationship Specialty Start Date End Date Gerard Le PA-C [address] [place] [address] PCP - General Family Medicine 11/26/16 No, Referral Referring 01/31/19 [place] [address] [place], [place] 3354126 Primary Staff Physician Cardiology 07/15/21 Carla Burdick MD [address] [facility] [place], [place] 779561 Primary Staff Physician Cardiology 03/03/22 Sonny Lund MD [address] [place], [place] [address]101 Hematology/Oncology 04/22/22 Corporate Compliance Officer Relationship Specialty Start Date End Date Gerard Le PA-C [address] [place], [place] 610871 PCP - General Family Medicine 11/26/16 No, Referral Referring 01/31/19 [place] [address] [address] [place], [place] 9073926 Primary Staff Physician Cardiology 07/15/21 Carla Burdick MD [address] [facility] [place], [place] 181241 Primary Staff Physician Cardiology 03/03/22 Sonny Lund MD [address] [facility] [place], [place] 561691 Hematology/Oncology 04/22/22 Corporate Compliance Officer Relationship Specialty Start Date End Date Gerard Le PA-C [address] [place] [address] PCP - General Family Medicine 11/26/16 No, Referral Referring 01/31/19 [place] [address] [place], [place] 0647426 Primary Staff Physician Cardiology 07/15/21 Carla Burdick MD [address] [place], [place] 505081 Primary Staff Physician Cardiology 03/03/22 Sonny Lund MD [address] [facility] [place], [place] 510761 Hematology/Oncology 04/22/22 Corporate Compliance Officer Relationship Specialty Start Date End Date Gerard Le PA-C [address] [place], [place] 905731 PCP - General Family Medicine 11/26/16 No, Referral Referring 01/31/19 [place] [address] [address] [place], [place] 8796526 Primary Staff Physician Cardiology 07/15/21 Carla Burdick MD [address] [facility] [place], [place] 632771 Primary Staff Physician Cardiology 03/03/22 Sonny Lund MD [address] [place] [place], [place] 296981 Hematology/Oncology 04/22/22 Corporate Compliance Officer Relationship Specialty Start Date End Date Gerard Le PA-C [address] [place] [address] PCP - General Family Medicine 11/26/16 No, Referral Referring 01/31/19 [place] [address] [address] [place], [place] 4705526 Primary Staff Physician Cardiology 07/15/21 Carla Burdick MD [address] [facility] [place] 814941 Primary Staff Physician Cardiology 03/03/22 Sonny Lund MD [address] [place] [place], [place] 805151 Hematology/Oncology 04/22/22 Corporate Compliance Officer Relationship Specialty Start Date End Date Gerard Le PA-C [address] [place], [place] 166071 PCP - General Family Medicine 11/26/16 No, Referral Referring 01/31/19 [place] [address] [address] [place], [place] 0490826 Primary Staff Physician Cardiology 07/15/21 Carla Burdick MD [address] [place] 607481 Primary Staff Physician Cardiology 03/03/22 Sonny Lund MD [address] [place] 595241 Hematology/Oncology 04/22/22 Corporate Compliance Officer Relationship Specialty Start Date End Date Gerard Le PA-C [address] [place] [address] PCP - General Family Medicine 11/26/16 No, Referral Referring 01/31/19 [place] [address] [place] [place], [place] 8016326 Primary Staff Physician Cardiology 07/15/21 Carla Burdick MD [address] [place] 369781 Primary Staff Physician Cardiology 03/03/22 Sonny Lund MD [address] [place], [place] 954411 Hematology/Oncology 04/22/22 Corporate Compliance Officer Relationship Specialty Start Date End Date Gerard Le PA-C [address] [place], [place] 000371 PCP - General Family Medicine 11/26/16 No, Referral Referring 01/31/19 [place] [address] [address] [place], [place] 2873026 Primary Staff Physician Cardiology 07/15/21 Carla Burdick MD [address] [facility] [place] [place] 435281 Primary Staff Physician Cardiology 03/03/22 Sonny Lund MD [address] [facility] [place] [place] 520761 Hematology/Oncology 04/22/22 Corporate Compliance Officer Relationship Specialty Start Date End Date Gerard Le PA-C [address] [place], [place] 999171 PCP - General Family Medicine 11/26/16 No, Referral Referring 01/31/19 [place] [address] [address] [place], [place] 5782826 Primary Staff Physician Cardiology 07/15/21 Corporate Compliance Officer Relationship Specialty Start Date End Date Gerard Le PA-C [address] [place], [place] 642041 PCP - General Family Medicine 11/26/16 No, Referral Referring 01/31/19 [place] [address] [place] [address] Primary Staff Physician Cardiology 07/15/21 Carla Burdick MD [address] [place], [place] 12248691 Primary Staff Physician Cardiology 03/03/22 Sonny Lund MD [address] [place], [place] 976371 Hematology/Oncology 04/22/22 Corporate Compliance Officer Relationship Specialty Start Date End Date Dianne Le PA-C PCP - General Family Medicine 11/26/16 No, Referral Referring 01/31/19 [place] [address] [place] [address] Primary Staff Physician Cardiology 07/15/21 Carla Burdick MD [address] [place], [place] 630831 Primary Staff Physician Cardiology 03/03/22 Sonny Lund MD [address] [place] [address] Hematology/Oncology 04/22/22 Deysi Collazo APRN.SCRAP CHARGER [address] [place], [place] 111101 [facility] 06/09/24 Sandra Bell APRN.SCRAP CHARGER [address] [place] [address] [facility] 06/09/24 Corporate Compliance Officer Relationship Specialty Start Date End Date No, Referral Referring 01/31/19 [place] [address] [place], [place] 0959026 Primary Staff Physician Cardiology 07/15/21 Carla Burdick MD [address] [place] [address] Primary Staff Physician Cardiology 03/03/22 Sonny Lund MD [address] [place] [address] Hematology/Oncology 04/22/22 Deysi Collazo APRN.SCRAP CHARGER [address] [place] [address] [facility] Family [facility] 06/09/24 Sandra Bell APRN.SCRAP CHARGER [address] [place] [address] [facility] 06/09/24 Corporate Compliance Officer Relationship Specialty Start Date End Date Deysi Collazo APRN.SCRAP CHARGER [address] [place] [address] PCP - General Family Medicine 07/07/24 No, Referral Referring 01/31/19 [place] [address] [place], [place] 0680926 Primary Staff Physician Cardiology 07/15/21 Carla Burdick MD [address] [place] [address] Primary Staff Physician Cardiology 03/03/22 Sonny Lund MD [address] [place] [address] Hematology/Oncology 04/22/22 Deysi Collazo APRN.SCRAP CHARGER [address] [place], [place] 880491 [facility] 06/09/24 Sandra Bell APRN.SCRAP CHARGER [address] [place] [address] [facility] 06/09/24 Corporate Compliance Officer Relationship Specialty Start Date End Date Deysi Collazo APRN.SCRAP CHARGER [address] [place] [address] PCP - General Family Medicine 07/07/24 No, Referral Referring 01/31/19 [place] [address] [place] [place], [place] 8308826 Primary Staff Physician Cardiology 07/15/21 Carla Burdick MD [address] [place] [address] Primary Staff Physician Cardiology 03/03/22 Sonny Lund MD [address] [facility] [place] [address] Hematology/Oncology 04/22/22 Deysi Collazo APRN.SCRAP CHARGER [address] [place] [address] [facility] 06/09/24 Sandra Bell ATHLETIC AGENT.SCRAP CHARGER [address] [place] [address] [facility] 06/09/24 Corporate Compliance Officer Relationship Specialty Start Date End Date Deysi Collazo, ATHLETIC AGENT.SCRAP CHARGER [address] [place] [address] PCP - General Family Medicine 07/07/24 No, Referral Referring 01/31/19 [place] [address] [place], [place] 6613326 Primary Staff Physician Cardiology 07/15/21 Carla Burdick MD [address] [facility] [place] [place] 511361 Primary Staff Physician Cardiology 03/03/22 Sonny Lund MD [address] [facility] [place], [place] 717051 Hematology/Oncology 04/22/22 Deysi Collazo, TERI.SCRAP CHARGER [address] [place], [place] 081161 [facility] 06/09/24 Sandra Bell ATHLETIC AGENT.SCRAP CHARGER [address] [place], [place] 366971 [facility] 06/09/24 Corporate Compliance Officer Relationship Specialty Start Date End Date Deysi Collazo, TERI.SCRAP CHARGER [address] [place], [place] 751611 PCP - General Family Medicine 07/07/24 No, Referral Referring 01/31/19 [place] [address] [address] [place] [place], [place] 9062726 Primary Staff Physician Cardiology 07/15/21 Carla Burdick MD [address] [place] [address] Primary Staff Physician Cardiology 03/03/22 Sonny Lund MD [address] [facility] [place], [place] 830951 Hematology/Oncology 04/22/22 Deysi Collazo APRN.SCRAP CHARGER [address] [place], [place] 262934 [phone] [facility] 06/09/24 Sandra Bell APRN.SCRAP CHARGER [address] [place], [place] 403591 [facility] 06/09/24 Corporate Compliance Officer Relationship Specialty Start Date End Date Deysi Collazo APRN.SCRAP CHARGER [address] [place] [address] PCP - General Family Medicine 07/07/24 No, Referral Referring 01/31/19 [place] [address] [place] [address] Primary Staff Physician Cardiology 07/15/21 Carla Burdick MD [address] [place] [address] Primary Staff Physician Cardiology 03/03/22 Sonny Lund MD [address] [facility] [address] Hematology/Oncology 04/22/22 Deysi Collazo APRN.SCRAP CHARGER [address] [place] [address] [facility] 06/09/24 Sandra Bell APRN.SCRAP CHARGER [address] [place] [address] [facility] 06/09/24 Corporate Compliance Officer Relationship Specialty Start Date End Date Deysi Collazo APRN.SCRAP CHARGER [address] [facility] [place] [address] PCP - General Family Medicine 07/07/24 No, Referral Referring 01/31/19 [place] [address] [place], [place] 6853426 Primary Staff Physician Cardiology 07/15/21 Carla Burdick MD [address] [place] [address] Primary Staff Physician Cardiology 03/03/22 Sonny Lund MD [address] [place] [address] Hematology/Oncology 04/22/22 Deysi Collazo APRN.SCRAP CHARGER [address] [facility] [place] [address] [facility] 06/09/24 Sandra Bell APRN.SCRAP CHARGER [address] [place] [address] [facility] 06/09/24 Corporate Compliance Officer Relationship Specialty Start Date End Date Deysi Collazo APRN.SCRAP CHARGER [address] [place] [address] PCP - General Family Medicine 07/07/24 No, Referral Referring 01/31/19 [place] [address] [place] [address] Primary Staff Physician Cardiology 07/15/21 Carla Burdick MD [address] [place], [place] 555861 Primary Staff Physician Cardiology 03/03/22 Sonny Lund MD [address] [place] [address] Hematology/Oncology 04/22/22 Deysi Collazo APRN.SCRAP CHARGER [address] [place], [place] 797961 [facility] 06/09/24 Sandra Bell APRN.SCRAP CHARGER [address] [place], [place] 047591 [facility] 06/09/24 Corporate Compliance Officer Relationship Specialty Start Date End Date Deysi Collazo APRN.SCRAP CHARGER [address] [place], [place] 557201 PCP - General Family Medicine 07/07/24 No, Referral Referring 01/31/19 [place] [address] [place] [address] Primary Staff Physician Cardiology 07/15/21 Carla Burdick MD [address] [facility] [address] Primary Staff Physician Cardiology 03/03/22 Sonny Lund MD [address] [place] [address] Hematology/Oncology 04/22/22 Deysi Collazo APRN.SCRAP CHARGER [address] [place] [address] [facility] 06/09/24 Sandra Bell APRN.SCRAP CHARGER [address] [place] [address] [facility] 06/09/24 Corporate Compliance Officer Relationship Specialty Start Date End Date Deysi Collazo APRN.SCRAP CHARGER [address] [place] [address] PCP - General Family Medicine 07/07/24 No, Referral Referring 01/31/19 [place] [address] [place], [place] 7420526 Primary Staff Physician Cardiology 07/15/21 Carla Burdick MD [address] [place] [address] Primary Staff Physician Cardiology 03/03/22 Sonny Lund MD [address] [place] [address] Hematology/Oncology 04/22/22 Deysi Collazo APRN.SCRAP CHARGER [address] [place] [address] [employer] [facility] 06/09/24 Sandra Bell ATHLETIC AGENT.SCRAP CHARGER [address] [place], [place] [address] [phone] [facility] 06/09/24 Corporate Compliance Officer Relationship Specialty Start Date End Date Deysi Collazo, ATHLETIC AGENT.SCRAP CHARGER [address] [place], [place] [id number] PCP - General Family Medicine 07/07/24 No, Referral Referring 01/31/19 [place] [address] [place] [address] Primary Staff Physician Cardiology 07/15/21 Carla Burdick MD [address] [place], [place] [id number] Primary Staff Physician Cardiology 03/03/22 Sonny Lund MD [address] [place] [address] Hematology/Oncology 04/22/22 Deysi Collazo, ATHLETIC AGENT.SCRAP CHARGER [address] [place] [address] [facility] 06/09/24 Sandra Bell, ATHLETIC AGENT.SCRAP CHARGER [address] [place], [place] [address] [facility] 06/09/24 Corporate Compliance Officer Relationship Specialty Start Date End Date Deysi Collazo, ATHLETIC AGENT.SCRAP CHARGER [address] [place], [place] [id number] [phone] PCP - General Family Medicine 07/07/24 No, Referral Referring 01/31/19 [place] [address] [address] [place], [place] [id number] Primary Staff Physician Cardiology 07/15/21 Carla Burdick MD [address] [place] [address] Primary Staff Physician Cardiology 03/03/22 Sonny Lund MD [address] [place] [address] Hematology/Oncology 04/22/22 Deysi Collazo APRN.SCRAP CHARGER [address] [place] [address] [employer] [facility] 06/09/24 Snadra Bell APRN.SCRAP CHARGER [address] [place] [address] [facility] 06/09/24 Corporate Compliance Officer Relationship Specialty Start Date End Date Deysi Collazo APRN.SCRAP CHARGER [address] [place] [address] PCP - General Family Medicine 07/07/24 No, Referral Referring 01/31/19 [place] [address] [place] [address] Primary Staff Physician Cardiology 07/15/21 Carla Burdick MD [address] [place] [address] Primary Staff Physician Cardiology 03/03/22 Deysi Collazo APRN.SCRAP CHARGER [address] [place] [address] [facility] Family [facility] 06/09/24 Sandra Bell APRN.SCRAP CHARGER [address] [place] [address] [facility] Corporate Compliance Officer Relationship Specialty Start Date End Date Deysi Collazo ATHLETIC AGENT.SCRAP CHARGER [address] [place] [address] PCP - General Family Medicine 07/07/24 No, Referral Referring 01/31/19 [place] [address] [place] [address] Primary Staff Physician Cardiology 07/15/21 Carla Burdick MD [address] [place] [address] Primary Staff Physician Cardiology 03/03/22 Deysi Collazo, ATHLETIC AGENT.SCRAP CHARGER [address] [place] [address] [facility] 06/09/24 Sandra Bell, ATHLETIC AGENT.SCRAP CHARGER [address] [place] [address] [facility] 06/09/24 Corporate Compliance Officer Relationship Specialty Start Date End Date Deysi Collazo, ATHLETIC AGENT.SCRAP CHARGER [address] [place] [address] PCP - General Family Medicine 07/07/24 No, Referral Referring 01/31/19 [place] [address] [place] [address] Primary Staff Physician Cardiology 07/15/21 Carla Burdick MD [address] [facility] [place] [address] Primary Staff Physician Cardiology 03/03/22 Deysi Collazo APRN.SCRAP CHARGER [address] [place] [address] [facility] 06/09/24 Sandra Bell APRN.SCRAP CHARGER [address] [place] [address] [employer] [facility] 06/09/24 Corporate Compliance Officer Relationship Specialty Start Date End Date Deysi Collazo APRN.SCRAP CHARGER [address] [place] [address] PCP - General Family Medicine 07/07/24 No, Referral Referring 01/31/19 [place] [address] [place] [address] Primary Staff Physician Cardiology 07/15/21 Carla Burdick MD [address] [place] [address] Primary Staff Physician Cardiology 03/03/22 Deysi Collazo APRN.SCRAP CHARGER [address] [place] [address] [facility] 06/09/24 Sandra Bell APRN.SCRAP CHARGER [address] [place] [address] [facility] 06/09/24 Team Status: Active Member Role/Relationship Status Dates Deysi Collazo OCC MED PHYSICIAN, OCC MED PHYSICIAN-C Primary Care Provider Active Team Status: Active Member Role/Relationship Status Dates Deysi Hadon OCC MED PHYSICIAN, OCC MED PHYSICIAN-C Primary Care Provider Active Start: January 07, 2025 Dr. Luis Armando Harry MD Emergency Provider Active Sta rt: January 07, 2025 Dr. Radha Heller MD Admit Provider Active Star t: January 07, 2025 Dr. Radha Heller MD Attending Provider Active Start: January 07, 2025 Team Status: Inactive Member Role/Relationship Status Dates Deysi Hadon OCC MED PHYSICIAN, OCC MED PHYSICIAN-C Primary Care Provider Active Start: January 07, [...] Status: Active Member Role/Relationship Status Dates Deysi Haagen OCC MED PHYSICIAN, OCC MED PHYSICIAN-C Primary Care Provider Active Start: January 08, 2025 Dr. Abundio Turcios MD Attending Provider Active S tart: January 08, 2025 Team Status: Active Member Role/Relationship Status Dates Deysi Haagen OCC MED PHYSICIAN, OCC MED PHYSICIAN-C Primary Care Provider Active Start: January 08, 2025 Dr. Yaniv Masters MD Attending Provider Active S tart: January 08, 2025 Team Status: Active Member Role/Relationship Status Dates Deysi Haagen OCC MED PHYSICIAN, OCC MED PHYSICIAN-C Primary Care Provider Active Start: January 08, [...] Active Member Role/Relationship Status Dates Deysi Collazo OCC MED PHYSICIAN, OCC MED PHYSICIAN-C Primary Care Provider Active Start: January 09, [...] Active Member Role/Relationship Status Dates Deysi Collazo OCC MED PHYSICIAN, OCC MED PHYSICIAN-C Primary Care Provider Active Start: January 10, [...] Other Provider Active Start: January 10, 2025 Team Status: Active Member Role/Relationship Status Dates Dr. Vincent Flores MD Primary Care Provider Active Team Status: Active Member Role/Relationship Status Dates Deysi Collazo OCC MED PHYSICIAN, OCC MED PHYSICIAN-C Primary Care Provider Active Start: January 11, 2025 Dr. Luis Armando Harry MD Emergency Provider Active Sta rt: January 11, 2025 Dr. Radha Heller MD Admit Provider Active Star t: January 11, 2025 Dr. Radha Heller MD Other Provider Active Star t: January 11, 2025 Dr. Dianne Stovall DO Attending Provider Active Start: January 11, 2025 Dr. Dianne Stovall DO Other Provider Active S tart: January 11, 2025 Dr. Jeremy Mcgarry MD Other Provider Active Start: January 11, 2025 Team Status: Inactive Member Role/Relationship Status Dates Dr. Jeremy Mcgarry MD Attending Provider Active Start: January 23, 2025 End: January 23, 2025 Dr. Jeremy Mcgarry MD Referring Provider Active Start: January 23, 2025 End: January 23, 2025 Dr. Vincent Flores MD Primary Care Provider Active Start: January 23, 2025 End: January 23, 2025 Corporate Compliance Officer Relationship Specialty Start Date End Date Deysi Collazo APRN.SCRAP CHARGER [address] [place], [place] [address] PCP - General Family Medicine 07/07/24 No, Referral Referring 01/31/19 [place] [address] [place] [address] Primary Staff Physician Cardiology 07/15/21 Carla Burdick MD [address] [place] [address] Primary Staff Physician Cardiology 03/03/22 Deysi Collazo APRN.SCRAP CHARGER [address] [place] [address] [facility] 06/09/24 Sandra Bell, ATHLETIC AGENT.SCRAP CHARGER [address] [facility] [place] [address] [facility] 06/09/24 Team Status: Active Member Role/Relationship Status Dates Deysi Collazo OCC MED PHYSICIAN, OCC MED PHYSICIAN-C Primary Care Provider Active Start: January 08, 2025 Dr. Abundio Turcios MD Attending Provider Active S tart: January 08, 2025 Dr. Carla Ha DO Referring Provider Active Start: January 08, 2025 Team Status: Active Member Role/Relationship Status Dates Dr. Vincent Flores MD Primary Care Provider Active Start: February 01, 2025 Dr. Vincent Flores MD Attending Provider Active Start: February 01, 2025 Team Status: Inactive Member Role/Relationship Status Dates Dr. Juan Diego Huynh MD Attending Provider Active Start: February 05, 2025 End: February 05, 2025 Dr. Dianne Stovall DO Referring Provider Active Start: February 05, 2025 End: February 05, 2025 Dr. Vincent Flores MD Primary Care Provider Active Start: February 05, 2025 End: February 05, 2025 Team Status: Inactive Member Role/Relationship Status Dates Dr. Vincent Flores MD Primary Care Provider Active Start: February 01, 2025 End: February 01, 2025 Dr. Vincent Flores MD Attending Provider Active Start: February 01, 2025 End: February 01, 2025 Team Status: Active Member Role/Relationship Status Dates Dr. Vincent Flores MD Primary Care Provider Active Start: February 05, 2025 Dr. Juan Diego Huynh MD Attending Provider Active Start: February 05, 2025 Team Status: Inactive Member Role/Relationship Status Dates Dr. Vincent Flores MD Primary Care Provider Active Start: February 08, 2025 End: February 08, 2025 Dr. Vincent Flores MD Referring Provider Active Start: February 08, 2025 End: February 08, 2025 Pau Davis Attending Provider Active Start: Dieter 2024 End: February 08, 2025 Team Status: Inactive Member Role/Relationship Status Dates Dr. Vincent Flores MD Primary Care Provider Active Start: February 05, 2025 End: February 05, 2025 Dr. Juan Diego Huynh MD Attending Provider Active Start: February 05, 2025 End: February 05, 2025 Team Status: Inactive Member Role/Relationship Status Dates Dr. Vincent Flores MD Primary Care Provider Active Start: February 08, 2025 End: February 08, 2025 Dr. Yaniv Masters MD Attending Provider Active S tart: February 08, 2025 End: February 08, 2025 Team Status: Inactive Member Role/Relationship Status Dates Dr. Vincent Flores MD Primary Care Provider Active Start: February 08, 2025 End: February 08, 2025 Dr. Vincent Flores MD Referring Provider Active Start: February 08, 2025 End: February 08, 2025 Pau Davis Attending Provider Active Start: A 2024 End: February 08, 2025 Team Status: Active Member Role/Relationship Status Dates Dr. Vincent Flores MD Primary Care Provider Active Start: February 13, 2025 Dr. Vincent Flores MD Attending Provider Active Start: February 13, 2025 Dr. Vincent Flores MD Referring Provider Active Start: February 13, 2025 Team Status: Inactive Member Role/Relationship Status Dates Dr. Vincent Flores MD Primary Care Provider Active Start: February 16, 2025 End: February 16, 2025 Dr. Magdy Pang MD Emergency Provider Active S tart: February 16, 2025 End: February 16, 2025 Team Status: Inactive Member Role/Relationship Status Dates Dr. Vincent Flores MD Primary Care Provider Active Start: February 13, 2025 End: February 13, 2025 Dr. Vincent Flores MD Attending Provider Active Start: February 13, 2025 End: February 13, 2025 Dr. Vincent Flores MD Referring Provider Active Start: February 13, 2025 End: February 13, 2025 Corporate Compliance Officer Relationship Specialty Start Date End Date Deysi Collazo APRN.SCRAP CHARGER [address] [place] [address] PCP - General Family Medicine 07/07/24 No, Referral Referring 01/31/19 [place] [address] [address] [place], [place] [id number] Primary Staff Physician Cardiology 07/15/21 Carla Burdick MD [address] [place], [place] [phone] Primary Staff Physician Cardiology 03/03/22 Deysi Collazo, ATHLETIC AGENT.SCRAP CHARGER [address] [place], [place] [id number] [facility] 06/09/24 Sandra Bell, ATHLETIC AGENT.SCRAP CHARGER [address] [place], [place] [id number] [facility] 06/09/24 Team Status: Inactive Member Role/Relationship Status Dates Dr. Vincent Flores MD Primary Care Provider Active Start: February 16, 2025 End: February 16, 2025 Dr. Magdy Pang MD Attending Provider Active S tart: February 16, 2025 End: February 16, 2025 Dr. Magdy Pang MD Emergency Provider Active S tart: February 16, 2025 End: February 16, 2025 Team Status: Inactive Member Role/Relationship Status Dates Dr. Vincent Flores MD Primary Care Provider Active Start: February 21, 2025 End: February 21, 2025 Dr. Vincent Flores MD Attending Provider Active Start: February 21, 2025 End: February 21, 2025 Team Status: Active Member Role/Relationship Status Dates Dr. Vincent Flores MD Primary Care Provider Active Start: February 27, 2025 Dr. Vincent Flores MD Attending Provider Active Start: February 27, 2025 Team Status: Inactive Member Role/Relationship Status Dates Dr. Vincent Flores MD Primary Care Provider Active Start: March 01, 2025 End: March 04, 2025 Dr. Vincent Flores MD Referring Provider Active Start: March 01, 2025 End: March 04, 2025 Dr. Ebony Cerrato MD Attending Provider Active Start: March 01, 2025 End: March 04, 2025 Team Status: Active Member Role/Relationship Status Dates Dr. Vincent Flores MD Primary Care Provider Active Start: March 01, 2025 Dr. Vincent Flores MD Referring Provider Active Start: March 01, 2025 Dr. Ebony Cerrato MD Attending Provider Active Start: March 01, 2025 Dr. Ebony Cerrato MD Other Provider Active Start: March 01, 2025 Team Status: Active Member Role/Relationship Status Dates Dr. Vincent Flores MD Primary Care Provider Active Start: March 02, 2025 Dr. Vincent Flores MD Attending Provider Active Start: March 02, 2025 Dr. Vincent Flores MD Referring Provider Active Start: March 02, 2025 Team Status: Inactive Member Role/Relationship Status Dates Dr. Vincent Flores MD Primary Care Provider Active Start: February 27, 2025 End: February 27, 2025 Dr. Vincent Flores MD Attending Provider Active Start: February 27, 2025 End: February 27, 2025 Team Status: Inactive Member Role/Relationship Status Dates Dr. Vincent Flores MD Primary Care Provider Active Start: March 02, 2025 End: March 02, 2025 Dr. Vincent Flores MD Attending Provider Active Start: March 02, 2025 End: March 02, 2025 Dr. Vincent Flores MD Referring Provider Active Start: March 02, 2025 End: March 02, 2025 Team Status: Inactive Member Role/Relationship Status Dates Dr. Vincent Flores MD Primary Care Provider Active Start: February 08, 2025 End: February 08, 2025 Dr. Yaniv Masters MD Attending Provider Active S tart: February 08, 2025 End: February 08, 2025 Dr. Yaniv Masters MD Referring Provider Active S tart: February 08, 2025 End: February 08, 2025 Team Status: Active Member Role/Relationship Status Dates Dr. Vincent Flores MD Primary Care Provider Active Start: March 08, 2025 Dr. Vincent Flores MD Referring Provider Active Start: March 08, 2025 Dr. Ebony Cerrato MD Attending Provider Active Start: March 08, 2025 Team Status: Active Member Role/Relationship Status Dates Dr. Vincent Flores MD Primary Care Provider Active Start: March 08, 2025 Dr. Vincent Flores MD Referring Provider Active Start: March 08, 2025 Dr. Ebony Cerrato MD Attending Provider Active Start: March 08, 2025 Dr. Ebony Cerrato MD Other Provider Active Start: March 08, 2025 Team Status: Active Member Role/Relationship Status Dates Dr. Vincent Flores MD Primary Care Provider Active Start: March 09, 2025 Dr. Vincent Flores MD Attending Provider Active Start: March 09, 2025 Dr. Vincent Flores MD Referring Provider Active Start: March 09, 2025 Team Status: Inactive Member Role/Relationship Status Dates Dr. Vincent Flores MD Primary Care Provider Active Start: March 13, 2025 End: March 13, 2025 Dr. Vincent Flores MD Referring Provider Active Start: March 13, 2025 End: March 13, 2025 Dr. Ric Noriega MD Attending Provider Active Start: March 13, 2025 End: March 13, 2025 Team Status: Active Member Role/Relationship Status Dates Dr. Vincent Flores MD Primary Care Provider Active Start: March 13, 2025 Dr. Ric Noriega MD Attending Provider Active Start: March 13, 2025 Dr. Ric Noriega MD Referring Provider Active Start: March 13, 2025 Team Status: Active Member Role/Relationship Status Dates Dr. Vincent Flores MD Primary care physician Active Team Status: Inactive Member Role/Relationship Status Dates Deysi Collazo OCC MED PHYSICIAN, OCC MED PHYSICIAN-C Primary care physician Active Start: January 07, 2025 End: January 11, 2025 Dr. Luis Armando Harry MD Emergency Department Physician Active Start: January 07, 2025 End: January 11, 2025 Dr. Radha Heller MD Admitting physician Active Start: January 07, 2025 End: January 11, 2025 Dr. Radha Heller MD Nurse Practitioner Active Start: January 07, 2025 End: January 11, 2025 Dr. Dianne Stovall DO Attending physician Active Start: January 07, 2025 End: January 11, 2025 Dr. Jeremy Mcgarry MD Nurse Practitioner Active Start: January 07, 2025 End: January 11, 2025 Team Status: Active Member Role/Relationship Status Dates Deysi Collazo OCC MED PHYSICIAN, OCC MED PHYSICIAN-C Primary care physician Active Start: January 08, 2025 Dr. Abundio Turcios MD Attending physician Active Start: January 08, 2025 Dr. Carla Ha DO Referring Provider Active Start: January 08, 2025 Team Status: Active Member Role/Relationship Status Dates Deysi Collazo OCC MED PHYSICIAN, OCC MED PHYSICIAN-C Primary care physician Active Start: January 08, 2025 Dr. Yaniv Masters MD Attending physician Active Start: January 08, 2025 Team Status: Active Member Role/Relationship Status Dates Deysi Collazo OCC MED PHYSICIAN, OCC MED PHYSICIAN-C Primary care physician Active Start: January 08, 2025 Dr. Luis Armando Harry MD Emergency Department Physician Active Start: January 08, 2025 Dr. Radha Heller MD Admitting physician Active Start: January 08, 2025 Dr. Radha Heller MD Nurse Practitioner Active Start: January 08, 2025 Teo Blue MD Nurse Practitioner Active Start : January 08, 2025 Dr. Lindsey Francisco MD Nurse Practitioner Active St art: January 08, 2025 Yamileth Hassan MD Nurse Practitioner Active S tart: January 08, 2025 Dr. Josefina Arrieta DO Nurse Practitioner Active Start: January 08, 2025 Dr. Charley Berger MD Nurse Practitioner Active St art: January 08, 2025 Dr. Tacos Edouard MD Nurse Practitioner Active Start: January 08, 2025 Dr. Sydney Jarvis MD Nurse Practitioner Active S tart: January 08, 2025 Dr. Marty Hopkins MD Nurse Practitioner Active St art: January 08, 2025 Dr. Tai Chavez MD Nurse Practitioner Active S tart: January 08, 2025 Dr. Jose John MD Nurse Practitioner Active Start: January 08, 2025 Karyna Gates MD Nurse Practitioner Active S tart: January 08, 2025 Dr. Panda Hein MD Nurse Practitioner Active Start: January 08, 2025 Dr. Chelsi Pulido MD Nurse Practitioner Active S tart: January 08, 2025 Dr. Lili Newman MD Nurse Practitioner Active Start: January 08, 2025 Dr. Tulio Pittman MD Nurse Practitioner Active Start: January 08 Dr. Jonathan Funez MD Nurse Practitioner Active Start: January 08, 2025 Dr. eRd Lucia MD Nurse Practitioner Active Start: January 08, 2025 Dr. Gurpreet Geronimo MD Nurse Practitioner Active Start: January 08, 2025 Dr. Noris Brock MD Nurse Practitioner Active St art: January 08, 2025 Jessa Lee MD Nurse Practitioner Active St art: January 08, 2025 Dr. Dianne Stovall DO Attending physician Active Start: January 08, 2025 Dr. Dianne Stovall DO Nurse Practitioner Active Start: January 08, 2025 Dr. Jeremy Mcgarry MD Nurse Practitioner Active Start: January 08, 2025 Team Status: Active Member Role/Relationship Status Dates Deysi Collazo OCC MED PHYSICIAN, OCC MED PHYSICIAN-C Primary care physician Active Start: January 09, 2025 Dr. Luis Armando Harry MD Emergency Department Physician Active Start: January 09, 2025 Dr. Radha Heller MD Admitting physician Active Start: January 09, 2025 Dr. Radha Heller MD Nurse Practitioner Active Start: January 09, 2025 Teo Blue MD Nurse Practitioner Active Start : January 09, 2025 Dr. Lindsey Francisco MD Nurse Practitioner Active St art: January 09, 2025 Yamileth Hassan MD Nurse Practitioner Active S tart: January 09, 2025 Dr. Josefina Arrieta DO Nurse Practitioner Active Start: January 09, 2025 Dr. Charley Berger MD Nurse Practitioner Active St art: January 09, 2025 Dr. Tacos Edouard MD Nurse Practitioner Active Start: January 09, 2025 Dr. Sydney Jarvis MD Nurse Practitioner Active S tart: January 09, 2025 Dr. Marty Hopkins MD Nurse Practitioner Active St art: January 09, 2025 Dr. Tai Chavez MD Nurse Practitioner Active S tart: January 09, 2025 Dr. Jose John MD Nurse Practitioner Active Start: January 09, 2025 Karyna Gates MD Nurse Practitioner Active S tart: January 09, 2025 Dr. Panda Hein MD Nurse Practitioner Active Start: January 09, 2025 Dr. Chelsi Pulido MD Nurse Practitioner Active S tart: January 09, 2025 Dr. Lili Newman MD Nurse Practitioner Active Start: January 09, 2025 Dr. Tulio Pittman MD Nurse Practitioner Active Start: January 09 Dr. Jonathan Funez MD Nurse Practitioner Active Start: January 09, 2025 Dr. Red Lucia MD Nurse Practitioner Active Start: January 09, 2025 Dr. Gurpreet Geronimo MD Nurse Practitioner Active Start: January 09, 2025 Dr. Noris Brock MD Nurse Practitioner Active St art: January 09, 2025 Jessa Lee MD Nurse Practitioner Active St art: January 09, 2025 Dr. Dianne Stovall DO Attending physician Active Start: January 09, 2025 Dr. Dianne Stovall DO Nurse Practitioner Active Start: January 09, 2025 Dr. Jeremy Mcgarry MD Nurse Practitioner Active Start: January 09, 2025 Team Status: Active Member Role/Relationship Status Dates Deysi Collazo OCC MED PHYSICIAN, OCC MED PHYSICIAN-C Primary care physician Active Start: January 10, 2025 Dr. Luis Armando Harry MD Emergency Department Physician Active Start: January 10, 2025 Dr. Radha Heller MD Admitting physician Active Start: January 10, 2025 Dr. Radah Heller MD Nurse Practitioner Active Start: January 10, 2025 Dr. Dianne Stovall DO Attending physician Active Start: January 10, 2025 Dr. Dianne Stovall DO Nurse Practitioner Active Start: January 10, 2025 Dr. Jeremy Mcgarry MD Nurse Practitioner Active Start: January 10, 2025 Team Status: Active Member Role/Relationship Status Dates Deysi Collazo OCC MED PHYSICIAN, OCC MED PHYSICIAN-C Primary care physician Active Start: January 11, 2025 Dr. Luis Armando Harry MD Emergency Department Physician Active Start: January 11, 2025 Dr. Radha Heller MD Admitting physician Active Start: January 11, 2025 Dr. Radha Heller MD Nurse Practitioner Active Start: January 11, 2025 Dr. Dianne Stovall DO Attending physician Active Start: January 11, 2025 Dr. Dianne Stovall DO Nurse Practitioner Active Start: January 11, 2025 Dr. Jeremy Mcgarry MD Nurse Practitioner Active Start: January 11, 2025 Team Status: Inactive Member Role/Relationship Status Dates Dr. Jeremy Mcgarry MD Attending physician Active Start: January 23, 2025 End: January 23, 2025 Dr. Jeremy Mcgarry MD Referring Provider Active Start: January 23, 2025 End: January 23, 2025 Dr. Vincent Flores MD Primary care physician Active Start: January 23, 2025 End: January 23, 2025 Team Status: Inactive Member Role/Relationship Status Dates Dr. Vincent Flores MD Primary care physician Active Start: February 01, 2025 End: February 01, 2025 Dr. Vincent Flores MD Attending physician Active Start: February 01, 2025 End: February 01, 2025 Team Status: Inactive Member Role/Relationship Status Dates Dr. Juan Diego Huynh MD Attending physician Active Start: February 05, 2025 End: February 05, 2025 Dr. Dianne Stovall DO Referring Provider Active Start: February 05, 2025 End: February 05, 2025 Dr. Vincent Flores MD Primary care physician Active Start: February 05, 2025 End: February 05, 2025 Team Status: Inactive Member Role/Relationship Status Dates Dr. Vincent Flores MD Primary care physician Active Start: February 05, 2025 End: February 05, 2025 Dr. Juan Diego Huynh MD Attending physician Active Start: February 05, 2025 End: February 05, 2025 Team Status: Inactive Member Role/Relationship Status Dates Dr. Vincent Flores MD Primary care physician Active Start: February 08, 2025 End: February 08, 2025 Dr. Yaniv Masters MD Attending physician Active Start: February 08, 2025 End: February 08, 2025 Team Status: Inactive Member Role/Relationship Status Dates Dr. Vincent Flores MD Primary care physician Active Start: February 08, 2025 End: February 08, 2025 Dr. Yaniv Masters MD Attending physician Active Start: February 08, 2025 End: February 08, 2025 Dr. Yaniv Masters MD Referring Provider Active S tart: February 08, 2025 End: February 08, 2025 Team Status: Inactive Member Role/Relationship Status Dates Dr. Vincent Flores MD Primary care physician Active Start: February 13, 2025 End: February 13, 2025 Dr. Vincent Flores MD Attending physician Active Start: February 13, 2025 End: February 13, 2025 Dr. Vincent Flores MD Referring Provider Active Start: February 13, 2025 End: February 13, 2025 Team Status: Inactive Member Role/Relationship Status Dates Dr. Vincent Flores MD Primary care physician Active Start: February 16, 2025 End: February 16, 2025 Dr. Magdy Pang MD Attending physician Active Start: February 16, 2025 End: February 16, 2025 Dr. Magdy Pang MD Emergency Department Physician Ac tive Start: February 16, 2025 End: February 16, 2025 Team Status: Inactive Member Role/Relationship Status Dates Dr. Vincent Flores MD Primary care physician Active Start: February 21, 2025 End: February 21, 2025 Dr. Vincent Flores MD Attending physician Active Start: February 21, 2025 End: February 21, 2025 Team Status: Inactive Member Role/Relationship Status Dates Dr. Vincent Flores MD Primary care physician Active Start: February 27, 2025 End: February 27, 2025 Dr. Vincent Flores MD Attending physician Active Start: February 27, 2025 End: February 27, 2025 Team Status: Inactive Member Role/Relationship Status Dates Dr. Vincent Flores MD Primary care physician Active Start: March 01, 2025 End: March 04, 2025 Dr. Vincent Flores MD Referring Provider Active Start: March 01, 2025 End: March 04, 2025 Dr. Ebony Cerrato MD Attending physician Active Start: March 01, 2025 End: March 04, 2025 Team Status: Active Member Role/Relationship Status Dates Dr. Vincent Flores MD Primary care physician Active Start: March 01, 2025 Dr. Vincent Flores MD Referring Provider Active Start: March 01, 2025 Dr. Ebony Cerrato MD Attending physician Active Start: March 01, 2025 Dr. Ebony Cerrato MD Nurse Practitioner Active Start: March 01, 2025 Team Status: Inactive Member Role/Relationship Status Dates Dr. Vincent Flores MD Primary care physician Active Start: March 02, 2025 End: March 02, 2025 Dr. Vincent Flores MD Attending physician Active Start: March 02, 2025 End: March 02, 2025 Dr. Vincent Flores MD Referring Provider Active Start: March 02, 2025 End: March 02, 2025 Team Status: Active Member Role/Relationship Status Dates Dr. Vincent Flores MD Primary care physician Active Start: March 08, 2025 Dr. Vincent Flores MD Referring Provider Active Start: March 08, 2025 Dr. Ebony Cerrato MD Attending physician Active Start: March 08, 2025 Dr. Ebony Cerrato MD Nurse Practitioner Active Start: March 08, 2025 Team Status: Active Member Role/Relationship Status Dates Dr. Vincent Flores MD Primary care physician Active Start: March 09, 2025 Dr. Vincent Flores MD Attending physician Active Start: March 09, 2025 Dr. Vincent Flores MD Referring Provider Active Start: March 09, 2025 Team Status: Inactive Member Role/Relationship Status Dates Dr. Vincent Flores MD Primary care physician Active Start: March 13, 2025 End: March 13, 2025 Dr. Vincent Flores MD Referring Provider Active Start: March 13, 2025 End: March 13, 2025 Dr. Ric Noriega MD Attending physician Active Start: March 13, 2025 End: March 13, 2025 Team Status: Active Member Role/Relationship Status Dates Dr. Vincent Flores MD Primary care physician Active Start: March 15, 2025 Dr. Vincent Flores MD Referring Provider Active Start: March 15, 2025 Dr. Ebony Cerrato MD Attending physician Active Start: March 15, 2025 Team Status: Active Member Role/Relationship Status Dates Dr. Vincent Flores MD Primary care physician Active Start: March 15, 2025 Dr. Vincent Flores MD Referring Provider Active Start: March 15, 2025 Dr. Ebony Cerrato MD Attending physician Active Start: March 15, 2025 Dr. Ebony Cerrato MD Nurse Practitioner Active Start: March 15, 2025 Team Status: Active Member Role/Relationship Status Dates Dr. Vincent Flores MD Primary care physician Active Start: March 20, 2025 Dr. Ric Noriega MD Attending physician Active Start: March 20, 2025 Dr. Ric Noriega MD Referring Provider Active Start: March 20, 2025 Team Status: Inactive Member Role/Relationship Status Dates Dr. Vincent Flores MD Primary care physician Active Start: March 22, 2025 End: March 22, 2025 Dr. Byron Bañuelos DO Emergency Departme nt Physician Active Start: March 22, 2025 End: March 22, 2025 Team Status: Inactive Member Role/Relationship Status Dates Dr. Vincent Flores MD Primary care physician Active Start: March 09, 2025 End: March 09, 2025 Dr. Vincent Flores MD Attending physician Active Start: March 09, 2025 End: March 09, 2025 Dr. Vincent Flores MD Referring Provider Active Start: March 09, 2025 End: March 09, 2025 Team Status: Active Member Role/Relationship Status Dates Dr. Vincent Flores MD Primary care physician Active Start: March 15, 2025 Dr. Vincent Flores MD Referring Provider Active Start: March 15, 2025 Dr. Ebony Cerrato MD Attending physician Active Start: March 15, 2025 Dr. Ebony Cerrato MD Nurse Practitioner Active Start: March 15, 2025 Team Status: Inactive Member Role/Relationship Status Dates Dr. Vincent Flores MD Primary care physician Active Start: March 22, 2025 End: March 22, 2025 Dr. Byron Bañuelos DO Attending physician Active Start: March 22, 2025 End: March 22, 2025 Dr. Byron Bañuelos DO Emergency Departme nt Physician Active Start: March 22, 2025 End: March 22, 2025 Team Status: Active Member Role/Relationship Status Dates Dr. Vincent Flores MD Primary care physician Active Start: March 27, 2025 Dr. Ric Noriega MD Attending physician Active Start: March 27, 2025 Dr. Ric Noriega MD Referring Provider Active Start: March 27, 2025 Team Status: Active Member Role/Relationship Status Dates Dr. Vincent Flores MD Primary care physician Active Start: March 29, 2025 Dr. Vincent Flores MD Referring Provider Active Start: March 29, 2025 Dr. Ebony Cerrato MD Attending physician Active Start: March 29, 2025 Team Status: Active Member Role/Relationship Status Dates Dr. Vincent Flores MD Primary care physician Active Start: March 29, 2025 Dr. Vincent Flores MD Referring Provider Active Start: March 29, 2025 Dr. Ebony Cerrato MD Attending physician Active Start: March 29, 2025 Dr. Ebony Cerrato MD Nurse Practitioner Active Start: March 29, 2025 Team Status: Active Member Role/Relationship Status Dates Dr. Vincent Flores MD Primary care physician Active Start: April 02, 2025 Dr. Vincent Flores MD Attending physician Active Start: April 02, 2025 Team Status: Inactive Member Role/Relationship Status Dates Dr. Vincent Flores MD Primary care physician Active Start: March 29, 2025 End: April 03, 2025 Dr. Vincent Flores MD Referring Provider Active Start: March 29, 2025 End: April 03, 2025 Dr. Ebony Cerrato MD Attending physician Active Start: March 29, 2025 End: April 03, 2025 Team Status: Inactive Member Role/Relationship Status Dates Dr. Vincent Flores MD Primary care physician Active Start: April 02, 2025 End: April 02, 2025 Dr. Vincent Flores MD Attending physician Active Start: April 02, 2025 End: April 02, 2025 Team Status: Active Member Role/Relationship Status Dates Dr. Vincent Flores MD Primary care physician Active Start: April 05, 2025 Dr. Vincent Flores MD Referring Provider Active Start: April 05, 2025 Dr. Ebony Cerrato MD Attending physician Active Start: April 05, 2025 Team Status: Active Member Role/Relationship Status Dates Dr. Vincent Flores MD Primary care physician Active Start: April 05, 2025 Dr. Vincent Flores MD Referring Provider Active Start: April 05, 2025 Dr. Ebony Cerrato MD Attending physician Active Start: April 05, 2025 Dr. Ebony Cerrato MD Nurse Practitioner Active Start: April 05, 2025 Team Status: Active Member Role/Relationship Status Dates Deysi Collazo OCC MED PHYSICIAN, OCC MED PHYSICIAN-C Primary care physician Active Start: January 11, 2025 Dr. Luis Armando Harry MD Emergency Department Physician Active Start: January 11, 2025 Dr. Radha Heller MD Admitting physician Active Start: January 11, 2025 Dr. Radha Heller MD Nurse Practitioner Active Start: January 11, 2025 Dr. Dianne Stovall DO Attending physician Active Start: January 11, 2025 Dr. Dianne Stovall DO Nurse Practitioner Active Start: January 11, 2025 Dr. Jeremy Mcgarry MD Nurse Practitioner Active Start: January 11, 2025 Team Status: Inactive Member Role/Relationship Status Dates Dr. Jeremy Mcgarry MD Attending physician Active Start: January 23, 2025 End: January 23, 2025 Dr. Jeremy Mcgarry MD Referring Provider Active Start: January 23, 2025 End: January 23, 2025 Dr. Vincent Flores MD Primary care physician Active Start: January 23, 2025 End: January 23, 2025 Team Status: Inactive Member Role/Relationship Status Dates Dr. Vincent Flores MD Primary care physician Active Start: February 01, 2025 End: February 01, 2025 Dr. Vincent Flores MD Attending physician Active Start: February 01, 2025 End: February 01, 2025 Team Status: Inactive Member Role/Relationship Status Dates Dr. Juan Diego Huynh MD Attending physician Active Start: February 05, 2025 End: February 05, 2025 Dr. Dianne Stovall DO Referring Provider Active Start: February 05, 2025 End: February 05, 2025 Dr. Vincent Flores MD Primary care physician Active Start: February 05, 2025 End: February 05, 2025 Team Status: Inactive Member Role/Relationship Status Dates Dr. Vincent Flores MD Primary care physician Active Start: February 05, 2025 End: February 05, 2025 Dr. Juan Diego Huynh MD Attending physician Active Start: February 05, 2025 End: February 05, 2025 Team Status: Inactive Member Role/Relationship Status Dates Dr. Vincent Flores MD Primary care physician Active Start: February 08, 2025 End: February 08, 2025 Dr. Yaniv Masters MD Attending physician Active Start: February 08, 2025 End: February 08, 2025 Team Status: Inactive Member Role/Relationship Status Dates Dr. Vincent Flores MD Primary care physician Active Start: February 08, 2025 End: February 08, 2025 Dr. Yaniv Masters MD Attending physician Active Start: February 08, 2025 End: February 08, 2025 Dr. Yaniv Masters MD Referring Provider Active S tart: February 08, 2025 End: February 08, 2025 Team Status: Inactive Member Role/Relationship Status Dates Dr. Vincent Flores MD Primary care physician Active Start: February 13, 2025 End: February 13, 2025 Dr. Vincent Flores MD Attending physician Active Start: February 13, 2025 End: February 13, 2025 Dr. Vincent Flores MD Referring Provider Active Start: February 13, 2025 End: February 13, 2025 Team Status: Inactive Member Role/Relationship Status Dates Dr. Vincent Flores MD Primary care physician Active Start: February 16, 2025 End: February 16, 2025 Dr. Magdy Pang MD Attending physician Active Start: February 16, 2025 End: February 16, 2025 Dr. Magdy Pang MD Emergency Department Physician Ac tive Start: February 16, 2025 End: February 16, 2025 Team Status: Inactive Member Role/Relationship Status Dates Dr. Vincent Flores MD Primary care physician Active Start: February 21, 2025 End: February 21, 2025 Dr. Vincent Flores MD Attending physician Active Start: February 21, 2025 End: February 21, 2025 Team Status: Inactive Member Role/Relationship Status Dates Dr. Vincent Flores MD Primary care physician Active Start: February 27, 2025 End: February 27, 2025 Dr. Vincent Flores MD Attending physician Active Start: February 27, 2025 End: February 27, 2025 Team Status: Inactive Member Role/Relationship Status Dates Dr. Vincent Flores MD Primary care physician Active Start: March 01, 2025 End: March 04, 2025 Dr. Vincent Flores MD Referring Provider Active Start: March 01, 2025 End: March 04, 2025 Dr. Ebony Cerrato MD Attending physician Active Start: March 01, 2025 End: March 04, 2025 Team Status: Active Member Role/Relationship Status Dates Dr. Vincent Flores MD Primary care physician Active Start: March 01, 2025 Dr. Vincent Flores MD Referring Provider Active Start: March 01, 2025 Dr. Ebony Cerrato MD Attending physician Active Start: March 01, 2025 Dr. Ebony Cerrato MD Nurse Practitioner Active Start: March 01, 2025 Team Status: Inactive Member Role/Relationship Status Dates Dr. Vincent Flores MD Primary care physician Active Start: March 02, 2025 End: March 02, 2025 Dr. Vincent Flores MD Attending physician Active Start: March 02, 2025 End: March 02, 2025 Dr. Vincent Florse MD Referring Provider Active Start: March 02, 2025 End: March 02, 2025 Team Status: Active Member Role/Relationship Status Dates Dr. Vincent Flores MD Primary care physician Active Start: March 08, 2025 Dr. Vincent Flores MD Referring Provider Active Start: March 08, 2025 Dr. Ebony Cerrato MD Attending physician Active Start: March 08, 2025 Dr. Ebony Cerrato MD Nurse Practitioner Active Start: March 08, 2025 Team Status: Inactive Member Role/Relationship Status Dates Dr. Vincent Flores MD Primary care physician Active Start: March 09, 2025 End: March 09, 2025 Dr. Vincent Flores MD Attending physician Active Start: March 09, 2025 End: March 09, 2025 Dr. Vincent Flores MD Referring Provider Active Start: March 09, 2025 End: March 09, 2025 Team Status: Inactive Member Role/Relationship Status Dates Dr. Vincent Flores MD Primary care physician Active Start: March 13, 2025 End: March 13, 2025 Dr. Vincent Flores MD Referring Provider Active Start: March 13, 2025 End: March 13, 2025 Dr. Ric Noriega MD Attending physician Active Start: March 13, 2025 End: March 13, 2025 Team Status: Active Member Role/Relationship Status Dates Dr. Vincent Flores MD Primary care physician Active Start: March 15, 2025 Dr. Vincent Flores MD Referring Provider Active Start: March 15, 2025 Dr. Ebony Cerrato MD Attending physician Active Start: March 15, 2025 Dr. Ebony Cerrato MD Nurse Practitioner Active Start: March 15, 2025 Team Status: Inactive Member Role/Relationship Status Dates Dr. Vincent Flores MD Primary care physician Active Start: March 22, 2025 End: March 22, 2025 Dr. Byron Bañuelos DO Attending physician Active Start: March 22, 2025 End: March 22, 2025 Dr. Byron Bañuelos DO Emergency Departme nt Physician Active Start: March 22, 2025 End: March 22, 2025 Team Status: Inactive Member Role/Relationship Status Dates Dr. Vincent Flores MD Primary care physician Active Start: March 29, 2025 End: April 03, 2025 Dr. Vincent Flores MD Referring Provider Active Start: March 29, 2025 End: April 03, 2025 Dr. Ebony Cerrato MD Attending physician Active Start: March 29, 2025 End: April 03, 2025 Team Status: Active Member Role/Relationship Status Dates Dr. Vincent Flores MD Primary care physician Active Start: March 29, 2025 Dr. Vincent Flores MD Referring Provider Active Start: March 29, 2025 Dr. Ebony Cerrato MD Attending physician Active Start: March 29, 2025 Dr. Ebony Cerrato MD Nurse Practitioner Active Start: March 29, 2025 Team Status: Inactive Member Role/Relationship Status Dates Dr. Vincent Flores MD Primary care physician Active Start: April 02, 2025 End: April 02, 2025 Dr. Vincent Flores MD Attending physician Active Start: April 02, 2025 End: April 02, 2025 Team Status: Active Member Role/Relationship Status Dates Dr. Vincent Flores MD Primary care physician Active Start: April 05, 2025 Dr. Vincent Flores MD Referring Provider Active Start: April 05, 2025 Dr. Ebony Cerrato MD Attending physician Active Start: April 05, 2025 Dr. Ebony Cerrato MD Nurse Practitioner Active Start: April 05, 2025 Team Status: Active Member Role/Relationship Status Dates Dr. Vincent Flores MD Primary care physician Active Start: April 12, 2025 Dr. Vincent Flores MD Referring Provider Active Start: April 12, 2025 Dr. Ebony Cerrato MD Attending physician Active Start: April 12, 2025 Dr. Ebony Cerrato MD Nurse Practitioner Active Start: April 12, 2025 Team Status: Active Member Role/Relationship Status Dates Dr. Vincent Flores MD Primary care physician Active Start: April 19, 2025 Dr. Vincent Flores MD Referring Provider Active Start: April 19, 2025 Dr. Ebony Cerrato MD Nurse Practitioner Active Start: April 19, 2025 Dr. Javi Moore MD Attending physician Active Start: April 19, 2025 Team Status: Inactive Member Role/Relationship Status Dates Dr. Vincent Flores MD Primary care physician Active Start: April 22, 2025 End: April 22, 2025 Dr. Yaniv Masters MD Attending physician Active Start: April 22, 2025 End: April 22, 2025 Team Status: Inactive Member Role/Relationship Status Dates Dr. Vincent Flores MD Primary care physician Active Start: April 24, 2025 End: April 24, 2025 Dr. Vincent Flores MD Referring Provider Active Start: April 24, 2025 End: April 24, 2025 Dr. Ric Noriega MD Attending physician Active Start: April 24, 2025 End: April 24, 2025 Team Status: Active Member Role/Relationship Status Dates Dr. Vincent Flores MD Primary care physician Active Start: April 24, 2025 Dr. Ric Noriega MD Attending physician Active Start: April 24, 2025 Dr. Ric Noriega MD Referring Provider Active Start: April 24, 2025 Team Status: Active Member Role/Relationship Status Dates Dr. Vincent Flores MD Primary care physician Active Start: May 02, 2025 Dr. Vincent Flores MD Attending physician Active Start: May 02, 2025 Team Status: Inactive Member Role/Relationship Status Dates Dr. Vincent Flores MD Primary care physician Active Start: May 03, 2025 End: May 04, 2025 Dr. Vincent Flores MD Referring Provider Active Start: May 03, 2025 End: May 04, 2025 Dr. Ebony Cerrato MD Attending physician Active Start: May 03, 2025 End: May 04, 2025 Team Status: Active Member Role/Relationship Status Dates Dr. Vincent Flores MD Primary care physician Active Start: May 03, 2025 Dr. Vincent Flores MD Referring Provider Active Start: May 03, 2025 Dr. Ebony Cerrato MD Attending physician Active Start: May 03, 2025 Dr. Ebony Cerrato MD Nurse Practitioner Active Start: May 03, 2025 Team Status: Inactive Member Role/Relationship Status Dates Dr. Vincent Flores MD Primary care physician Active Start: May 07, 2025 End: May 07, 2025 Dr. Vincent Flores MD Referring Provider Active Start: May 07, 2025 End: May 07, 2025 Cookie Bowman NP, OCC MED PHYSICIAN-C Attending physician Active Start: May 07, 2025 End: May 07, 2025 Team Status: Active Member Role/Relationship Status Dates Dr. Vincent Flores MD Primary care physician Active Start: May 10, 2025 Dr. Vincent Flores MD Referring Provider Active Start: May 10, 2025 Dr. Ebony Cerrato MD Attending physician Active Start: May 10, 2025 Team Status: Inactive Member Role/Relationship Status Dates Dr. Jeremy Mcgarry MD Attending physician Active Start: January 23, 2025 End: January 23, 2025 Dr. Jeremy Mcgarry MD Referring Provider Active Start: January 23, 2025 End: January 23, 2025 Dr. Vincent Flores MD Primary care physician Active Start: January 23, 2025 End: January 23, 2025 Team Status: Inactive Member Role/Relationship Status Dates Dr. Vicnent Flores MD Primary care physician Active Start: February 01, 2025 End: February 01, 2025 Dr. Vincent Flores MD Attending physician Active Start: February 01, 2025 End: February 01, 2025 Team Status: Inactive Member Role/Relationship Status Dates Dr. Juan Diego Huynh MD Attending physician Active Start: February 05, 2025 End: February 05, 2025 Dr. Dianne Stovall DO Referring Provider Active Start: February 05, 2025 End: February 05, 2025 Dr. Vincent Flores MD Primary care physician Active Start: February 05, 2025 End: February 05, 2025 Team Status: Inactive Member Role/Relationship Status Dates Dr. Vincent Flores MD Primary care physician Active Start: February 05, 2025 End: February 05, 2025 Dr. Juan Diego Huynh MD Attending physician Active Start: February 05, 2025 End: February 05, 2025 Team Status: Inactive Member Role/Relationship Status Dates Dr. Vincent Flores MD Primary care physician Active Start: February 08, 2025 End: February 08, 2025 Dr. Yaniv Masters MD Attending physician Active Start: February 08, 2025 End: February 08, 2025 Team Status: Inactive Member Role/Relationship Status Dates Dr. Vincent Flores MD Primary care physician Active Start: February 08, 2025 End: February 08, 2025 Dr. Yaniv Masters MD Attending physician Active Start: February 08, 2025 End: February 08, 2025 Dr. Yaniv Masters MD Referring Provider Active S tart: February 08, 2025 End: February 08, 2025 Team Status: Inactive Member Role/Relationship Status Dates Dr. Vincent Flores MD Primary care physician Active Start: February 13, 2025 End: February 13, 2025 Dr. Vincent Flores MD Attending physician Active Start: February 13, 2025 End: February 13, 2025 Dr. Vincent Flores MD Referring Provider Active Start: February 13, 2025 End: February 13, 2025 Team Status: Inactive Member Role/Relationship Status Dates Dr. Vincent Flores MD Primary care physician Active Start: February 16, 2025 End: February 16, 2025 Dr. Magdy Pang MD Attending physician Active Start: February 16, 2025 End: February 16, 2025 Dr. Magdy Pang MD Emergency Department Physician Ac tive Start: February 16, 2025 End: February 16, 2025 Team Status: Inactive Member Role/Relationship Status Dates Dr. Vincent Flores MD Primary care physician Active Start: February 21, 2025 End: February 21, 2025 Dr. Vincent Flores MD Attending physician Active Start: February 21, 2025 End: February 21, 2025 Team Status: Inactive Member Role/Relationship Status Dates Dr. Vincent Flores MD Primary care physician Active Start: February 27, 2025 End: February 27, 2025 Dr. Vincent Flores MD Attending physician Active Start: February 27, 2025 End: February 27, 2025 Team Status: Inactive Member Role/Relationship Status Dates Dr. Vincent Flores MD Primary care physician Active Start: March 01, 2025 End: March 04, 2025 Dr. Vincent Flores MD Referring Provider Active Start: March 01, 2025 End: March 04, 2025 Dr. Ebony Cerrato MD Attending physician Active Start: March 01, 2025 End: March 04, 2025 Team Status: Active Member Role/Relationship Status Dates Dr. Vincent Flores MD Primary care physician Active Start: March 01, 2025 Dr. Vincent Flores MD Referring Provider Active Start: March 01, 2025 Dr. Ebony Cerrato MD Attending physician Active Start: March 01, 2025 Dr. Ebony Cerrato MD Nurse Practitioner Active Start: March 01, 2025 Team Status: Inactive Member Role/Relationship Status Dates Dr. Vincent Flores MD Primary care physician Active Start: March 02, 2025 End: March 02, 2025 Dr. Vincent Flores MD Attending physician Active Start: March 02, 2025 End: March 02, 2025 Dr. Vincent Flores MD Referring Provider Active Start: March 02, 2025 End: March 02, 2025 Team Status: Active Member Role/Relationship Status Dates Dr. Vincent Flores MD Primary care physician Active Start: March 08, 2025 Dr. Vincent Flores MD Referring Provider Active Start: March 08, 2025 Dr. Ebony Cerrato MD Attending physician Active Start: March 08, 2025 Dr. Ebony Cerrato MD Nurse Practitioner Active Start: March 08, 2025 Team Status: Inactive Member Role/Relationship Status Dates Dr. Vincent Flores MD Primary care physician Active Start: March 09, 2025 End: March 09, 2025 Dr. Vincent Flores MD Attending physician Active Start: March 09, 2025 End: March 09, 2025 Dr. Vincent Flores MD Referring Provider Active Start: March 09, 2025 End: March 09, 2025 Team Status: Inactive Member Role/Relationship Status Dates Dr. Vincent Flores MD Primary care physician Active Start: March 13, 2025 End: March 13, 2025 Dr. Vincent Flores MD Referring Provider Active Start: March 13, 2025 End: March 13, 2025 Dr. Ric Noriega MD Attending physician Active Start: March 13, 2025 End: March 13, 2025 Team Status: Active Member Role/Relationship Status Dates Dr. Vincent Flores MD Primary care physician Active Start: March 15, 2025 Dr. Vincent Flores MD Referring Provider Active Start: March 15, 2025 Dr. Ebony Cerrato MD Attending physician Active Start: March 15, 2025 Dr. Ebony Cerrato MD Nurse Practitioner Active Start: March 15, 2025 Team Status: Inactive Member Role/Relationship Status Dates Dr. Vincent Flores MD Primary care physician Active Start: March 22, 2025 End: March 22, 2025 Dr. Byron Bañuelos DO Attending physician Active Start: March 22, 2025 End: March 22, 2025 Dr. Byron Bañuelos DO Emergency Departme nt Physician Active Start: March 22, 2025 End: March 22, 2025 Team Status: Inactive Member Role/Relationship Status Dates Dr. Vincent Flores MD Primary care physician Active Start: March 29, 2025 End: April 03, 2025 Dr. Vincent Flores MD Referring Provider Active Start: March 29, 2025 End: April 03, 2025 Dr. Ebony Cerrato MD Attending physician Active Start: March 29, 2025 End: April 03, 2025 Team Status: Active Member Role/Relationship Status Dates Dr. Vincent Flores MD Primary care physician Active Start: March 29, 2025 Dr. Vincent Flores MD Referring Provider Active Start: March 29, 2025 Dr. Ebony Cerrato MD Attending physician Active Start: March 29, 2025 Dr. Ebony Cerrato MD Nurse Practitioner Active Start: March 29, 2025 Team Status: Inactive Member Role/Relationship Status Dates Dr. Vincent Flores MD Primary care physician Active Start: April 02, 2025 End: April 02, 2025 Dr. Vincent Flores MD Attending physician Active Start: April 02, 2025 End: April 02, 2025 Team Status: Active Member Role/Relationship Status Dates Dr. Vincent Flores MD Primary care physician Active Start: April 05, 2025 Dr. Vincent Flores MD Referring Provider Active Start: April 05, 2025 Dr. Ebony Cerrato MD Attending physician Active Start: April 05, 2025 Dr. Ebony Cerrato MD Nurse Practitioner Active Start: April 05, 2025 Team Status: Active Member Role/Relationship Status Dates Dr. Vincent Flores MD Primary care physician Active Start: April 12, 2025 Dr. Vincent Flores MD Referring Provider Active Start: April 12, 2025 Dr. Ebony Cerrato MD Attending physician Active Start: April 12, 2025 Dr. Ebony Cerrato MD Nurse Practitioner Active Start: April 12, 2025 Team Status: Active Member Role/Relationship Status Dates Dr. Vincent Flores MD Primary care physician Active Start: April 19, 2025 Dr. Vincent Flores MD Referring Provider Active Start: April 19, 2025 Dr. Ebony Cerrato MD Nurse Practitioner Active Start: April 19, 2025 Dr. Javi Moore MD Attending physician Active Start: April 19, 2025 Team Status: Inactive Member Role/Relationship Status Dates Dr. Vincent Flores MD Primary care physician Active Start: April 22, 2025 End: April 22, 2025 Dr. Yaniv Masters MD Attending physician Active Start: April 22, 2025 End: April 22, 2025 Dr. Yaniv Masters MD Referring Provider Active S tart: April 22, 2025 End: April 22, 2025 Team Status: Inactive Member Role/Relationship Status Dates Dr. Vincent Flores MD Primary care physician Active Start: April 24, 2025 End: April 24, 2025 Dr. Vincent Flores MD Referring Provider Active Start: April 24, 2025 End: April 24, 2025 Dr. Ric Noriega MD Attending physician Active Start: April 24, 2025 End: April 24, 2025 Team Status: Active Member Role/Relationship Status Dates Dr. Vincent Flores MD Primary care physician Active Start: April 24, 2025 Dr. Ric Noriega MD Attending physician Active Start: April 24, 2025 Dr. Ric Noriega MD Referring Provider Active Start: April 24, 2025 Team Status: Inactive Member Role/Relationship Status Dates Dr. Vincent Flores MD Primary care physician Active Start: May 02, 2025 End: May 02, 2025 Dr. Vincent Flores MD Attending physician Active Start: May 02, 2025 End: May 02, 2025 Team Status: Inactive Member Role/Relationship Status Dates Dr. Vincent Flores MD Primary care physician Active Start: May 03, 2025 End: May 04, 2025 Dr. Vincent Flores MD Referring Provider Active Start: May 03, 2025 End: May 04, 2025 Dr. Ebony Cerrato MD Attending physician Active Start: May 03, 2025 End: May 04, 2025 Team Status: Active Member Role/Relationship Status Dates Dr. Vincent Flores MD Primary care physician Active Start: May 03, 2025 Dr. Vincent Flores MD Referring Provider Active Start: May 03, 2025 Dr. Ebony Cerrato MD Attending physician Active Start: May 03, 2025 Dr. Ebony Cerrato MD Nurse Practitioner Active Start: May 03, 2025 Team Status: Inactive Member Role/Relationship Status Dates Dr. Vincent Flores MD Primary care physician Active Start: May 07, 2025 End: May 07, 2025 Dr. Vincent Flores MD Referring Provider Active Start: May 07, 2025 End: May 07, 2025 Cookie Bowman OCC MED PHYSICIAN, OCC MED PHYSICIAN-C Attending physician Active Start: May 07, 2025 End: May 07, 2025 Team Status: Active Member Role/Relationship Status Dates Dr. Vincent Flores MD Primary care physician Active Start: May 10, 2025 Dr. Vincent Flores MD Referring Provider Active Start: May 10, 2025 Dr. Ebony Cerrato MD Attending physician Active Start: May 10, 2025 Team Status: Active Member Role/Relationship Status Dates Dr. Vincent Flores MD Primary care physician Active Start: May 10, 2025 Dr. Vincent Flores MD Referring Provider Active Start: May 10, 2025 Dr. Ebony Cerrato MD Attending physician Active Start: May 10, 2025 Dr. Ebony Cerrato MD Nurse Practitioner Active Start: May 10, 2025 Goals (unrecognized section and content) Goals may be documented in a n alternate sectionGoals may be documented in an alternate sectionGoals may be documented in an alternate sectionGoals may be documented in an [...] BE BASED ON THE PRIMARY CLINICAL RECORDS. [facility] provides no warranty or guarantee of the accuracy or completeness of information in this document.
[2025-05-24 20:23] LABS: Hematocrit 34.6 % (37-47); Hemoglobin 11.4 g/dL (12.0-15.0); Immature Granulocytes Count 0.110 X10^3/uL (0.0-0.0); Mean Corp Hgb Conc 32.9 g/dL (32-36); Mean Corpuscular Volume 91.3 fL (81-99); Mean Platelet Vol. 11.0 fl (6.2-12.0); NRBC Flagged by Analyzer 0.2 % (0-5); POSITIVE MORPHOLOGY YES; Platelet Count 144 K/mm3 (150-450); RBC Distribution Width CV 20.3 % (11.6-14.6); RBC Distribution Width SD 68.4 fl (35.1-43.9); Red Blood Count 3.79 M/mm3 (4.2-5.4); White Blood Count 9.6 K/mm3 (4.4-11.0)
[2025-05-24 20:26] LABS: Differential Indicated SCAN CRITERIA MET
[2025-05-24 21:06] LABS: Color, Urine Yellow (Yellow); Glucose, Dipstick Normal (Normal); Ketone-Dipstick Negative (Negative); Leukocyte Esterase-Dipstick Negative /ul (Negative); Mucous, Urine 0 SEEN /hpf (<or=2+); Nitrite-Dipstick Negative (Negative); Occult Blood-Urine 10 /ul (Negative); Protein-Dipstick 30 mg/dl (Negative); Red Blood Cells-Urine 0 SEEN /hpf (0-5); Specific Gravity, Urine 1.015 (1.002-1.030); Squamous Epithelial Cells - UA 0 SEEN /hpf (5-10); Urine Bilirubin Dipstick Negative (Negative)
[2025-05-24 21:21] VITALS: BP 131/62; PULSE 87; RESP 15; O2SAT 99
[2025-05-24 21:24] LABS: Lipase 62 U/L (13-75)
[2025-05-24 21:57] LABS: Differential Comment SCANNED
[2025-05-24 21:58] LABS: Anisocytosis 2+; Polychromasia 1+
[2025-05-24] MEDS: 0.9% Normal Saline (1000mL) 1,000 ML 1000 ML IV (22:00)
[2025-05-24 22:28] LABS: AST(SGOT) 54 U/L (<=31); Alanine Aminotransfer ALT/SGPT 21 U/L (<=34); Albumin, Serum 3.4 g/dL (3.4-4.8); Alkaline Phosphatase 106 U/L (35-104); Anion Gap 18 (5-15); BUN 122 mg/dL (4-19); BUN/Creat Ratio 26.9 RATIO (10-20); Calcium,Total 9.4 mg/dL (7.6-11.0); Carbon Dioxide 21.2 mmol/L (21.0-32.0); Chloride 84 mmol/L (98-108); Estimated Creatinine Clearance 9.14 ml/min (50-250); Globulin 3.4 g/dL (2.2-4.2); Glucose 133 mg/dL (70-99); Potassium 6.6 mmol/L (3.3-5.1)
--- NOTE | 2025-05-24 22:39 | RAD_ITS ---
PROCEDURE: CHEST PA AND LATERAL 05/24/2025 REASON FOR EXAM: WEAKNESS TECHNIQUE: Procedure Code: RADCXR Modality: DX Procedure: CHEST PA AND LATERAL COMPARISON: 02/16/2025. FINDINGS: AICD is in good position. Mild central pulmonary venous congestion, increased. Mild bilateral basilar atelectatic pulmonary changes, increased. There is no demonstrated pleural abnormality. Enlarged cardiac silhouette. Normal mediastinum and derrick. Normal visualized pulmonary arteries. Atheromatous plaques of the visualized aortic arch and descending thoracic aorta. Diffuse spondylosis of the visualized thoracic spine. Normal visualized ribs, clavicles. Degenerative joint disease. There is no demonstrated abnormality of the visualized soft tissue structures of the upper abdomen. RAD/Chest PA and Lateral IMPRESSION: AICD is in good position. Mild central pulmonary venous congestion, increased. Mild bilateral basilar atelectatic pulmonary changes, increased. Reading [facility]
[2025-05-24] MEDS: Albuterol *CONC* 2.5mg/0.5mL VIAL.NEB. 10 MG INHALATION (22:59)
[2025-05-24 23:00] VITALS: BP 146/71; PULSE 81; PULSE 84; RESP 15; RESP 18; O2SAT 100
[2025-05-24 23:06] VITALS: BP 146/71; PULSE 85; RESP 16; TEMP 36.6; O2SAT 99
[2025-05-24] MEDS: Calcium Gluconate IV 3 GM in Syringe 1 EACH IV (23:13)
--- OUTSIDE RECORDS SUMMARY | 2025-05-24 23:31 | XMS RPT_ITS | CCD ---
Author Organization [facility] CliniSyok Care Team Providers Care Wheel Assembler Name Role Phone Cruz Le Primary Care [...] Unavailable Unavailable Yin Agustin MD Unavailable Gerard eL PA-C Primary Care Provider Yin Agustin MD Unavailable Helen CAMACHO, Sheridan Collins Unavailable Unavailable Carla Burdick MD Unavailable Carla Burdick MD Unavailable Yin Agustin MD Unavailable [phone] Carla Burdick MD Unavailable Gerard Le PA-C Primary Care Provider Carla Burdick MD Unavailable Sonny Lund MD Unavailable Gerard Le PA-C Primary Care Provider No, Referral Unavailable Unavailable Yin Agustin MD Unavailable Carla Burdick MD Unavailable Sonny Lund MD Unavailable Sonny Lund MD Unavailable No, Referral Unavailable Unavailable Yin Agustin MD Unavailable [phone] Carla Burdick MD Unavailable Gerard Le PA-C Primary Care Provider Gerard LE Referring Unavailable Gerard LE Primary Care Unavailable Gerard LE Primary Care Unavailable Carla Burdick MD Unavailable Sonny Lund MD Unavailable Dianne Le PA-C Primary Care Provider Unavailable Haagen TEXT TRANSCRIBER.SOCIAL SCIENCE INSTRUCTOR, Deysi Unavailable Suppan TEXT TRANSCRIBER.SOCIAL SCIENCE INSTRUCTOR, Sandra A Unavailable [phone] Sonny Lund MD Unavailable Haagen TEXT TRANSCRIBER.SOCIAL SCIENCE INSTRUCTOR, Deysi Primary Care Provider Sonny Lund MD [...] Unavailable HAAGEN, DEYSI Primary Care Unavailable Haagen TENNIS INSTRUCTOR-C, Deysi Primary Care Provider Piero UGARTE, Dr. Durán Emergency Provider Arron UGARTE, Dr. Garcia Admit Provider Arron UGARTE, Dr. Garcia Attending Provider Arron UGARTE, Dr. Garcia Other Provider Dr. Dianne Stovall DO Attending Provider Zeferino UGARTE, Dr. Luna Other Provider Karolina UGARTE, Dr. Mcbride Attending Provider Sonam GUARTE, Dr. Purvis Attending Provider Teo Blue MD Other Provider Unavailable Nolan UGARTE, Dr. Portillo Other Provider [phone] Mo UGARTE, Yamileth Other Provider Unavailable Dr. Josefina Arrieta DO Other Provider Ab UGARTE, Dr. Whitehead Other Provider Javan UGARTE, Dr. Balderrama Other Provider Matheus UGARTE, Dr. Grimes Other Provider Dr. Marty Hopkins MD Other Provider Scott UGARTE, Dr. Lujan Other Provider [phone] Alvaro UGARTE, Dr. Garcia Other Provider Karyna [...] Dr. Vincent Cardozo Primary Care Provider [phone] Ha DO, Dr. Malave Referring Provider Jesika Flores MD, Dr. Vincent Cardozo Attending Provider Dr. Juan Diego Huynh MD Attending Provider Wilman CURRY, Dr. Osborne Referring Provider Mark UGARTE, Dr. Vincent Cardozo Referring Provider [phone] Pau Davis Attending Provider Unavailable Bird UGARTE, Dr. Curran Emergency Provider Bharat TENNIS INSTRUCTOR-C, [facility] Primary Care Provider Piero UGARTE, [...] Josefina Arrieta DO Other Provider Dr. Charley eBrger MD Other Provider Dr. Tacos Edouard MD Other Provider [phone] Matheus UGARTE, Dr. Grimes Other Provider Sandeep [...] Flores MD, Chi Primary Care Provider [phone] Mark UGARTE, Dr. Vincent Cardozo Attending Provider Dr. Juan Diego Huynh MD Attending Provider Dr. Dianne Stovall DO Referring Provider Mark UGARTE, Dr. Vincent Cardozo Referring Provider Pau Davis Attending Provider Unavailable Bird UGARTE, Dr. Curran Attending Provider Bird UGARTE, Dr. Curran Emergency Provider Blossom UGARTE, Dr. Beck Attending Provider Blossom UGARTE, Dr. Beck Other Provider Sonam UGARTE, Dr. Purvis Referring Provider Mark UGARTE, Dr. Vincent Cardozo Referring Provider Hari UGARTE, Dr. Larios Attending Provider Hari UGARTE, Dr. Larios Referring Provider Bharat TENNIS INSTRUCTOR-C, Deysi Primary Care Physician Piero UGARTE, Dr. Durán Emergency Department Physician Arron UGARTE, Dr. Garcia Admitting Physician Arron UGARTE, Dr. Garcia Nurse Practitioner Wilman CURRY, Dr. Osborne Attending Physician Zeferino UGARTE, Dr. Luna Nurse Practitioner Karolina UGARTE, Dr. Mcbride Attending Physician Sonam UGARTE, Dr. Purvis Attending Physician Mirza UGARTE, Teo Nurse Practitioner Unavailable Nolan UGARTE, Dr. Portillo Nurse Practitioner [phone] Mo UGARTE, Yamileth Nurse Practitioner Unavail zacarias Arrieta DO, Dr. Rocha Nurse Practitioner Ab UGARTE, Dr. Whitehead Nurse Practitioner Javan UGARTE, Dr. Balderrama Nurse Practitioner Matheus UGARTE, Dr. Grimes Nurse Practitioner Dr. Marty Hopkins MD Nurse Practitioner [phone] Tai Chavez MD Nurse Practitioner Alvaro UGARTE, Dr. Garcia Nurse Practitioner Karyna Gates MD Nurse Practitioner [phone] Angel Luis UGARTE, Dr. Mosqueda Nurse Practitioner Ashok UGARTE, Dr. Gagnon Nurse Practitioner Trent UGARTE, Dr. Pearson Nurse Practitioner Dr. Tulio Pittman MD Nurse Practitioner Armin UGARTE, Dr. Castillo Nurse Practitioner Rea UGARTE, Dr. Moon Nurse Practitioner [phone] Juanpablo UGARTE, Dr. Vázquez Nurse Practitioner Vinod [...] Dr. Curran Emergency Department Physici an Blossom UGATRE, Dr. Beck Attending Physician Blossom UGARTE, Dr. Beck Nurse Practitioner Hari UGARTE, Dr. Larios Attending Physician Dr. Ric Noriega MD Referring Provider Edda CURRY, Dr. Matthews Emergency Department Physic marito Dr. Byron Bañuelos DO Attending Physician Dr. Ric Noriega MD Referring Provider Bharat TENNIS INSTRUCTOR-C, [facility] Primary Care Physician Dr. Luis [...] Unavailable Mark, Vincent Chi Referring Unavailable Mark, Vnicent Chi Attending Unavailable Mark, Vincent Chi Primary [...] Care Unavailable Yaniv Masters Attending Unavailable Mark, Vincent [...] Mark, Vincent Chi Primary Care Unavailable Sonam [place] Referring Unavailable Yaniv Masters Attending Unavailable Mark, Vincent Chi Primary Care Unavailable Cookie Bowman Attending Unavailable Mark, Vincent Chi Referring Unavailable Radha Heller Attending Unavailable Haagen, Deysi Primary Care Unavailable Radha Heller Consulting Unavailable Radha Heller Admitting Unavailable Dinane Stovall Attending Unavailable Zeferino, Jayaprakas Consulting Unavailable [...] Unavailable Haagen, Deysi Primary Care Unavailable Sonam, [place] Attending Unavailable Mark, Vincent Chi Primary Care [...] Mark, Vincent Chi Primary Care Unavailable Sonam, [place] Attending Unavailable Sonam, [place] Referring Unavailable Mrak, Vincnet Chi Primary Care Unavailable Mark, Vincent Chi Attending Unavailable Allergies Allergy Classification Reported Allergen(s) Allergy Type Date of Onset Reaction(s) Facility (2 sources) metFORMIN Drug Allergy 4 [facility] (20 sources) Protamines; Translations: [PROTAMINE] Drug Allergy 2 Anaphylaxis [facility] Work Phone: (20 sources) Propofol; Translations: [PROPOFOL] Drug Allergy 3 Other: See Comments [facility] (1 source) Propofol Drug Allergy 5 [facility] Repository Medications Current Medications Medication Drug [...] once daily. Take 2 tablets by mo [facility] once daily. Take 1 tablet by kalyan [...] in NaCl (PF) 0.9% 10 mL injection (Thermalin Diabetes) polysaccharide iron complex 150 mg oral capsule [...] Drug Class(es) Dates Sig (Normalized) Sig (Original) [id number] 60 actuat albuterol 0.09 mg/actuat metered dose [...] on above: Take 1 capsule by mo [facility] once daily. clopidogrel 75 mg oral tablet [...] 5 days. Take 2 tablets by mo [facility] once daily. iv contrast (will be provided [...] on above: Take 1 capsule by mo [facility] once daily. pantoprazole 40 mg delayed release [...] on above: Take 2 tablets by mo [facility] once daily for 5 days. 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] Onset: [...] sources) Long-term current use of anticoagulant; Translations: [marine oil terminal superintendent (current) use of anticoagulants] Onset: 4 01-18-2019 Episodic Other aftercare (20 sources) 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; Translations: [group home (current) use of antithrombotics/antipl atelets] Onset: 2 03-21-2022 Episodic Other aftercare (20 sources) Acquired platelet function disorder; Translations: [group home (current) use of antithrombotics/antipl atelets] Onset: 2 [...] Visit Reporton Cardiology Visit Report Normal [facility] Absolute lymphocyte countOrd ered By: Vincent Flores on 05-02-2025 Lymphocytes Auto (Unsp spec) [#/Vol] 1.70 10*3/uL 0.83-4.51 [facility] Anion gap in Serum or Plasma Ordered By: Vincent Flores on 05-02-2025 Anion gap [Moles/Vol] 15 mmol/L - [facility] Automated lymphocyte count a s percentage of total leukocytesOrdered By: Vincent Flores on 05-02-2025 Lymphocytes/100 WBC Auto (Unsp spec) 25.9 % - [facility] BUN/creatinine ratioOrdered By: Vincent Flores on 05-02-2025 Urea nitrogen/Creatinine [Mass ratio] 39.5 mg/mg High 10- [facility] Basophil percentageOrdered B y: Vincent Flores on 05-02-2025 Basophils/100 WBC (Bld) 0.6 % 0-1 [facility] Bilirubin, totalOrdered By: Vincent Flores on 05-02-2025 Bilirubin [Mass/Vol] 0.96 mg/dL 0.00-1.30 [facility] CBC W/Diff, Automatedon 04-05 Anisocytosis Ql (Bld) 1+ Normal [facility] Comment on above: Performed By: #### L 501.9555, L500.4050, L100.0100, L506.1001 ####[facility] [address] [place], [place], [id number] Carbon dioxide, total [Moles /volume] in Central venous bloodOrdered By: Vincent Flores on 05-02-2025 CO2 [Moles/Vol] 27.1 mmol/L 21.0-32.0 [facility] Chloride assayOrdered By: Ishmael Flores on 05-02-2025 Chloride [Moles/Vol] 90 mmol/L Low 98-108 [facility] Comprehensive Metabolic Prof ilon 05-02-2025 Albumin [Mass/Vol] 4.0 g/dL Normal 3.4-4.8 [facility] Comment on above: Performed By: #### L 501.9520, L500.4050, L100.0100, L506.1001 ####[facility] [address] [place], [address] Albumin/Globulin [Mass ratio] 1.2 {ratio} Normal 0.9-2.4 [facility] Comment on above: Performed By: #### L 501.9520, L500.4050, L100.0100, L506.1001 ####[facility] [address] [place], [address] ALK PHOS 104 U/L Normal 35-104 [facility] Comment on above: Performed By: #### L 501.9520, L500.4050, L100.0100, L506.1001 ####[facility] [address] [place], [address] ALT [Catalytic activity/Vol] 13 U/L Normal <=34 [facility] Comment on above: Performed By: #### L 501.9520, L500.4050, L100.0100, L506.1001 ####[facility] [address] [place], [address] AST [Catalytic activity/Vol] 31 U/L Normal <=31 [facility] Comment on above: Performed By: #### L 501.9520, L500.4050, L100.0100, L506.1001 ####[facility] [address] [place], [address] Bilirubin [Mass/Vol] 0.96 mg/dL Normal 0.00-1.30 [facility] Comment on above: Performed By: #### L 501.9520, L500.4050, L100.0100, L506.1001 ####[facility] [address] [place], [address] BUN/CRE 39.5 RATIO High 10-20 [facility] Comment on above: Performed By: #### L 501.9520, L500.4050, L100.0100, L506.1001 ####[facility] [address] [place], [address] Calcium [Mass/Vol] 9.6 mg/dL Normal 7.6-11.0 [facility] Comment on above: Performed By: #### L 501.9520, L500.4050, L100.0100, L506.1001 ####[facility] [address] [place], [address] Chloride [Moles/Vol] 90 mmol/L Low 98-108 [facility] Comment on above: Performed By: #### L 501.9520, L500.4050, L100.0100, L506.1001 ####[facility] [address] [place], [address] CO2 [Moles/Vol] 27.1 mmol/L Normal 21.0-32.0 [facility] Comment on above: Performed By: #### L 501.9520, L500.4050, L100.0100, L506.1001 ####[facility] [address] [place], [address] Creatinine [Mass/Vol] 1.86 mg/dL High 0.70-1.20 [facility] Comment on above: Performed By: #### L 501.9520, L500.4050, L100.0100, L506.1001 ####[facility] [address] [place], [address] GAP 15 Normal 5-15 [facility] Comment on above: Performed By: #### L 501.9520, L500.4050, L100.0100, L506.1001 ####[facility] [address] [place], [address] GFR/1.73 sq M.predicted among non-blacks MDRD (S/P/Bld) [Vol rate/Area] 27 mL/min/{1.73_m2} Low >60 [facility] Comment on above: Result Comment: mL/m in/1.73m2 CKD-EPI Creatinine Equation (2020) Performed By: #### L 501.9520, L500.4050, L100.0100, L506.1001 ####[facility] [address] [place], [address] Globulin (S) [Mass/Vol] 3.3 g/dL Normal 2.2-4.2 [facility] Comment on above: Performed By: #### L 501.9520, L500.4050, L100.0100, L506.1001 ####[facility] [address] [place], [address] Glucose [Mass/Vol] 142 mg/dL High 70-99 [facility] Comment on above: Performed By: #### L 501.9520, L500.4050, L100.0100, L506.1001 ####[facility] [address] [place], [address] Potassium [Moles/Vol] 3.6 mmol/L Normal 3.3-5.1 [facility] Comment on above: Performed By: #### L 501.9520, L500.4050, L100.0100, L506.1001 ####[facility] [address] [place], [address] Sodium [Moles/Vol] 132 mmol/L Low 133-145 [facility] Comment on above: Performed By: #### L 501.9520, L500.4050, L100.0100, L506.1001 ####[facility] [address] [place], [address] T PROT 7.3 g/dL Normal 5.9-8.4 [facility] Comment on above: Performed By: #### L 501.9520, L500.4050, L100.0100, L506.1001 ####[facility] [address] [place], [address] Urea nitrogen [Mass/Vol] 73 mg/dL High 4-19 [facility] Comment on above: Performed By: #### L 501.9520, L500.4050, L100.0100, L506.1001 ####[facility] [address] [place], [address] Eosinophil percentageOrdered By: Vincent Flores on 05-02-2025 Eosinophils/100 WBC (Bld) 0.9 % 0-5 [facility] Erythrocyte distribution wid th ratioOrdered By: Vincent Flores on 05-02-2025 Erythrocyte distribution width (RBC) [Ratio] 22.2 % High 11.6-14.6 [facility] Erythrocyte distribution wid th standard deviationOrdered By: Vincent Flores on 05-02-2025 Erythrocyte distribution width (RBC) [Ratio] 77.4 fl High 35.1-43.9 [facility] Glomerular filtration rate ( GFR) estimation/1.73 sq m using serum, plasma, or whole bOrdered By: Vincent Flores on 05-02-2025 GFR/1.73 sq M.predicted among non-blacks MDRD (S/P/Bld) [Vol rate/Area] 27 mL/min/{1.73_m2} Low >60 [facility] Hematocrit Auto (Bld) [Volum e fraction]Ordered By: Vincent Flores on 05-02-2025 Hematocrit (Bld) [Volume fraction] 33.7 % Low 37-47 [facility] Hemoglobin measurementOrdere d By: Vincent Florse on 05-02-2025 Hemoglobin (Bld) [Mass/Vol] 11.0 g/dL Low 12.0-15.0 [facility] Immature granulocytes/100 WB C Auto (Bld)Ordered By: Vincent Flores on 05-02-2025 Immature granulocytes/100 WBC (Bld) 0.600 % 0.0-0.9 [facility] MCV (mean corpuscular volume ) determinationOrdered By: Vincent Flores on 05-02-2025 MCV (RBC) [Entitic vol] 93.9 fL 81-99 [facility] Mean corpuscular hemoglobin (MCH) determinationOrdered By: Vincent Flores on 05-02-2025 MCH (RBC) [Entitic mass] 30.6 pg 27.0-32.0 [facility] Monocyte percentageOrdered B y: Vincent Flores on 05-02-2025 Monocytes/100 WBC (Bld) 14.0 % High 0-10 [facility] Neutrophil percentageOrdered By: Vincent Flores on 05-02-2025 Neutrophils/100 WBC (Bld) 58.0 % 47-70 [facility] No Panel InformationOrdered By: Vincent Flores on 05-02-2025 1+ [facility] 31 U/L <32 [facility] Platelet countOrdered By: Ishmael Flores on 05-02-2025 Platelets (Bld) [#/Vol] 131 10*3/uL Low 150-450 [facility] Potassium measurement (mass/ volume)Ordered By: Vincent Flores on 05-02-2025 Potassium (Unsp spec) [Mass/Vol] 3.6 mmol/L 3.3-5.1 [facility] RBC Auto (Bld) [#/Vol]Ordere d By: Vincent Flores on 05-02-2025 RBC (Bld) [#/Vol] 3.59 10*6/uL Low 4.2-5.4 [facility] Serum creatinine measurement (mass/volume)Ordered By: Vincent Flores on 05-02-2025 Creatinine [Mass/Vol] 1.86 mg/dL High 0.70-1.20 [facility] Serum globulin measurementOr dered By: Vincent Flores on 05-02-2025 Globulin (S) [Mass/Vol] 3.3 g/dL 2.2-4.2 [facility] Serum glucose measurement (m ass/volume)Ordered By: Vincent Flores on 05-02-2025 Glucose [Mass/Vol] 142 mg/dL High 70-99 [facility] Serum or plasma alanine craven otransferase (ALT) measurementOrdered By: Vnicent Flores on 05-02-2025 ALT [Catalytic activity/Vol] 13 U/L <35 [facility] Serum or plasma albumin bijan urement (mass/volume)Ordered By: Vincent Flores on 05-02-2025 Albumin [Mass/Vol] 4.0 g/dL 3.4-4.8 [facility] Serum or plasma albumin/glob ulin mass ratioOrdered By: Vincent Flores on 05-02-2025 Albumin/Globulin [Mass ratio] 1.2 {ratio} 0.9-2.4 [facility] Serum or plasma alkaline da sphatase measurementOrdered By: Vincent Flores on 05-02-2025 ALP [Catalytic activity/Vol] 104 U/L 35-104 [facility] Serum or plasma calcium bijan urement (mass/volume)Ordered By: Vincent Flores on 05-02-2025 Calcium [Mass/Vol] 9.6 mg/dL 7.6-11.0 [facility] Serum or plasma urea nitroge n measurement (mass/volume)Ordered By: Vincent Flores on 05-02-2025 Urea nitrogen [Mass/Vol] 73 mg/dL High 4-19 [facility] Sodium levelOrdered By: Vincent Flores on 05-02-2025 Sodium [Moles/Vol] 132 mmol/L Low 133-145 [facility] TSH DL <= 0.005 mIU/L QnOrde red By: Vincent Flores on 05-02-2025 TSH Qn 3.250 uIU/mL 0.300-4.200 [facility] Thyroid Stim Hormone (TSH)on 05-02-2025 TSH 3.250 uIU/mL Normal 0.300-4.200 [facility] Comment on above: Performed By: #### L 501.7275, L500.4050, L100.0100, L506.1001 ####[facility] [address] [place], [place], [id number] Total proteinOrdered By: Vincent Flores on 05-02-2025 Protein [Mass/Vol] 7.3 g/dL 5.9-8.4 [facility] Vitamin D,25 Hydroxyon 05-02 Vitamin D 25-OH 35.0 ng/mL Normal 30-100 [facility] Comment on above: Result Comment: Haydee min D StatusDeficiency: <20 ng/mL (50nmol/L)Insufficiency: 20-30 ng/mL (50-75 nmol/L)Sufficiency: 30-100 ng/mL (75-250 nmol/L)Toxicity: >100 ng/mL (>250 nmol/L) Performed By: #### L 501.9520, L500.4050, L100.0100, L506.1001 ####[facility] [address] [place], [address] White blood cell (WBC) count Ordered By: Vincent Flores on 05-02-2025 WBC (Bld) [#/Vol] 6.6 10*3/uL 4.4-11.0 [facility] Absolute lymphocyte countOrd ered By: Ric Noriega on 04-24-2025 Lymphocytes Auto (Unsp spec) [#/Vol] 1.46 10*3/uL 0.83-4.51 [facility] Automated lymphocyte count a s percentage of total leukocytesOrdered By: Ric Noriega on 04-24-2025 Lymphocytes/100 WBC Auto (Unsp spec) 26.4 % 19-41 [facility] Basophil percentageOrdered B y: Ric Noriega on 04-24-2025 Basophils/100 WBC (Bld) 0.7 % 0-1 [facility] CBC W/Diff, Automatedon 04-05 Absolute Lymph 1.46 X10 3/uL Normal 0.83-4.51 [facility] Comment on above: Performed By: #### L 503.2650, L503.6030, L100.0100, L100.9950 ####[facility] [address] [place], [address] Absolute Neut 3.2 X10 3/uL Normal 2.0-7.7 [facility] Comment on above: Performed By: #### L 503.6550, L503.6030, L100.0100, L100.9950 ####[facility] [address] [place], [address] Basophils/100 WBC (Bld) 0.7 % Normal 0-1 [facility] Comment on above: Performed By: #### L 503.6550, L503.6030, L100.0100, L100.9950 ####[facility] [address] [place], [address] Eosinophils/100 WBC (Bld) 1.3 % Normal 0-5 [facility] Comment on above: Performed By: #### L 503.6550, L503.6030, L100.0100, L100.9950 ####[facility] [address] [place], [address] Erythrocyte distribution width (RBC) [Ratio] 22.7 % High 11.6-14.6 [facility] Comment on above: Performed By: #### L 503.6550, L503.6030, L100.0100, L100.9950 ####[facility] [address] [place], [address] Hematocrit (Bld) [Volume fraction] 33.0 % Low 37-47 [facility] Comment on above: Performed By: #### L 503.6550, L503.6030, L100.0100, L100.9950 ####[facility] [address] [place], [address] Hemoglobin (Bld) [Mass/Vol] 10.6 g/dL Low 12.0-15.0 [facility] Comment on above: Performed By: #### L 503.6550, L503.6030, L100.0100, L100.9950 ####[facility] [address] [place], [address] IG% 0.400 Normal 0.0-0.9 [facility] Comment on above: Result Comment: IG% - Immature Granulocytes (promyelocytes, myelocytes andmetamyelocytes) > 1% indicates that a LEFT SHIFT is Present. Performed By: #### L 503.6550, L503.6030, L100.0100, L100.9950 ####[facility] [address] [place], [address] Lymphocytes/100 WBC (Bld) 26.4 % Normal 19-41 [facility] Comment on above: Performed By: #### L 503.6550, L503.6030, L100.0100, L100.9950 ####[facility] [address] [place], [address] MCH (RBC) [Entitic mass] 30.4 pg Normal 27.0-32.0 [facility] Comment on above: Performed By: #### L 503.6550, L503.6030, L100.0100, L100.9950 ####[facility] [address] [place], [address] MCHC (RBC) [Mass/Vol] 32.1 g/dL Normal 32-36 [facility] Comment on above: Performed By: #### L 503.6550, L503.6030, L100.0100, L100.9950 ####[facility] [address] [place], [address] MCV (RBC) [Entitic vol] 94.6 fL Normal 81-99 [facility] Comment on above: Performed By: #### L 503.6550, L503.6030, L100.0100, L100.9950 ####[facility] [address] [place], [address] Monocytes/100 WBC (Bld) 12.7 % High 0-10 [facility] Comment on above: Performed By: #### L 503.6550, L503.6030, L100.0100, L100.9950 ####[facility] [address] [place], [address] Neutrophils/100 WBC (Bld) 58.5 % Normal 47-70 [facility] Comment on above: Performed By: #### L 503.6550, L503.6030, L100.0100, L100.9950 ####[facility] [address] [place], [address] Nucleated RBC (Bld) [#/Vol] 0 10*3/uL Normal 0-5 [facility] Comment on above: Performed By: #### L 503.6550, L503.6030, L100.0100, L100.9950 ####[facility] [address] [place], [address] Platelet mean volume (Bld) [Entitic vol] 9.2 fL Normal 6.2-12.0 [facility] Comment on above: Performed By: #### L 503.6550, L503.6030, L100.0100, L100.9950 ####[facility] [address] [place], [address] Platelets (Bld) [#/Vol] 108 10*3/uL Low 150-450 [facility] Comment on above: Performed By: #### L 503.6550, L503.6030, L100.0100, L100.9950 ####[facility] [address] [place], [address] RBC (Bld) [#/Vol] 3.49 10*6/uL Low 4.2-5.4 [facility] Comment on above: Performed By: #### L 503.6550, L503.6030, L100.0100, L100.9950 ####[facility] [address] [place], [address] RDW SD 80.4 fl High 35.1-43.9 [facility] Comment on above: Performed By: #### L 503.6550, L503.6030, L100.0100, L100.9950 ####[facility] [address] [place], [address] WBC (Bld) [#/Vol] 5.5 10*3/uL Normal 4.4-11.0 [facility] Comment on above: Performed By: #### L 503.6550, L503.6030, L100.0100, L100.9950 ####[facility] [address] [place], [address] Eosinophil percentageOrdered By: Ric Noriega on 04-24-2025 Eosinophils/100 WBC (Bld) 1.3 % 0-5 [facility] Erythrocyte distribution wid th ratioOrdered By: [facility] on 04-24-2025 Erythrocyte distribution width (RBC) [Ratio] 22.7 % High 11.6-14.6 [facility] Erythrocyte distribution wid th standard deviationOrdered By: [facility] Norie[facility] on 04-24-2025 Erythrocyte distribution width (RBC) [Ratio] 80.4 fl High 35.1-43.9 [facility] Ferritinon 04-24-2025 Ferritin [Mass/Vol] 135 ng/mL Normal 22-378 [facility] Comment on above: Performed By: #### L 503.6550, L503.6030, L100.0100, L100.9950 ####[facility] [address] [place], [address] Hematocrit Auto (Bld) [Volum e fraction]Ordered By: Ric Noriega on 04-24-2025 Hematocrit (Bld) [Volume fraction] 33.0 % Low 37-47 [facility] Hemoglobin measurementOrdere d By: Ric Noriega on 04-24-2025 Hemoglobin (Bld) [Mass/Vol] 10.6 g/dL Low 12.0-15.0 [facility] Immature granulocytes/100 WB C Auto (Bld)Ordered By: Ric Noriega on 04-24-2025 Immature granulocytes/100 WBC (Bld) 0.400 % 0.0-0.9 [facility] Iron measurement (mass/mass) Ordered By: Ric Noriega on 04-24-2025 Iron (Unsp spec) [Mass/Mass] 119 ug/dL 50-170 [facility] Iron+Iron Binding Capacityon 04-24-2025 Iron [Mass/Vol] 119 ug/dL Normal 50-170 [facility] Comment on above: Performed By: #### L 503.6550, L503.6030, L100.0100, L100.9950 ####[facility] [address] [place], [address] IRON SATURATION 30.0 Normal 13-59 [facility] Comment on above: Performed By: #### L 503.6550, L503.6030, L100.0100, L100.9950 ####[facility] [address] [place], [address] TIBC 397 ug/dL Normal 250-450 [facility] Comment on above: Performed By: #### L 503.6550, L503.6030, L100.0100, L100.9950 ####[facility] [address] [place], [address] UIBC 278 ug/dL Normal 228-428 [facility] Comment on above: Performed By: #### L 503.6550, L503.6030, L100.0100, L100.9950 ####[facility] [address] [place], [address] MCV (mean corpuscular volume ) determinationOrdered By: Ric Noriega on 04-24-2025 MCV (RBC) [Entitic vol] 94.6 fL 81-99 [facility] Mean corpuscular hemoglobin (MCH) determinationOrdered By: Ric Noriega on 04-24-2025 MCH (RBC) [Entitic mass] 30.4 pg 27.0-32.0 [facility] Monocyte percentageOrdered B y: Ric Noriega on 04-24-2025 Monocytes/100 WBC (Bld) 12.7 % High 0-10 [facility] Neutrophil percentageOrdered By: Ric Agudelokelly on 04-24-2025 Neutrophils/100 WBC (Bld) 58.5 % 47-70 [facility] No Panel InformationOrdered By: Ric Agudelokelly on 04-24-2025 278 ug/dL 228-428 [facility] Oncology Visit Reporton 04-05 Oncology Visit Report Normal [facility] Platelet countOrdered By: Luis oh Hari on 04-24-2025 Platelets (Bld) [#/Vol] 108 10*3/uL Low 150-450 [facility] RBC Auto (Bld) [#/Vol]Ordere d By: Ric Agudelokelly on 04-24-2025 RBC (Bld) [#/Vol] 3.49 10*6/uL Low 4.2-5.4 [facility] Retic Panelon 04-24-2025 IM RET FRACTION 13.80 Normal 3.00-15.90 [facility] Comment on above: Performed By: #### L 503.6550, L503.6030, L100.0100, L100.9950 ####[facility] [address] [place], [place], [id number] RET-HE 30.4 pg Normal 30-35 [facility] Comment on above: Performed By: #### L 503.6550, L503.6030, L100.0100, L100.9950 ####[facility] [address] [place], [place], [id number] Retic Count 1.82 High 0.5-1.5 [facility] Comment on above: Performed By: #### L 503.6550, L503.6030, L100.0100, L100.9950 ####[facility] [address] [place], [place], [id number] Reticulocyte hemoglobin equi valent (RET-He) measurementOrdered By: Abirubin Noriega on 04-24-2025 Hemoglobin (Reticulocytes) [Entitic mass] 30.4 pg 30-35 [facility] Reticulocytes Auto (Bld) [#/ Vol]Ordered By: [facility] on 04-24-2025 Reticulocytes/100 RBC (Bld) 1.82 % High 0.5-1.5 [facility] Serum or plasma ferritin austin surement (mass/volume)Ordered By: [facility] Hari on 04-24-2025 Ferritin [Mass/Vol] 135 ng/mL 22-378 [facility] Serum or plasma iron saturat ion measurement (mass fraction)Ordered By: [facility] on 04-24-2025 Iron saturation [Mass fraction] 30.0 % 13-59 [facility] White blood cell (WBC) count Ordered By: [facility] Hari on 04-24-2025 WBC (Bld) [#/Vol] 5.5 10*3/uL 4.4-11.0 [facility] Wound Ctr History AND Physic apollo 04-23-2025 Wound Ctr History & Physical Normal [facility] Culture, Anaerobic Any Sourc andie 04-08-2025 CUAN No anaerobic bacteri a isolated. [facility] Comment on above: Performed By: #### L 8200.1075, M100.2000, M100.4001, M100.3000 ####[facility] [address] [place], [place], [id number] Wound Cultureon 04-04-2025 WC Normal [facility] Comment on above: Performed By: #### L 8200.1075, M100.2000, M100.4001, M100.3000 ####[facility] [address] [facility] [place], [place], [id number] Gram Stainon 04-03-2025 GS Acceptable Specimen? Yes (<25 Epithelial cells per/lpf) Gram Stain 2+ White Blood Cells 1+ Red Blood Cells No Epithelial cells 1+ Gram positive cocci Normal [facility] Comment on above: Performed By: #### L 8200.1075, M100.2000, M100.4001, M100.3000 ####[facility] [address] [place], [address] Anaerobic cultureOrdered By: Vincent Flores on 04-02-2025 Bacteria identified Anaer cx Nom (Unsp spec) No anaerobic bacteria isolated. [facility] Gram stainOrdered By: Vincent cintron on 04-02-2025 Microscopic observation Gram stain Nom (Unsp spec) [facility] Microscopic observation Gram stain Nom (Unsp spec) [facility] MRSA Wound DNA by PCRon 03-06 MRSA DNA ASSAY Negative Normal Negative [facility] Comment on above: Order Comment: RIGHT ARM Performed By: #### L 8200.1075, M100.2000, M100.4001, M100.3000 ####[facility] [address] [place], [address] SA DNA ASSAY Positive Abnormal Negative [facility] Comment on above: Order Comment: RIGHT ARM Performed By: #### L 8200.1075, M100.2000, M100.4001, M100.3000 ####[facility] [address] [place], [address] Staphylococcus aureus DNA de tection by probe and target amplification methodOrdered By: Vincent Flores on 04-02-2025 S. aureus DNA RANDOLPH+probe Ql (Unsp spec) Positive High Negative [facility] Emergency Department Summary on 03-22-2025 Emergency Department Summary Normal [facility] Erythropoietinon 03-15-2025 ERYTHROPOIETIN 190.9 mIU/mL High 2.6-18.5 [facility] Comment on above: Result Comment: [place] DxI 800 Immunoassay SystemValues obtained with different assay methods or kits cannotbe used interchangeably. Results cannot be interpreted asabsolute evidence of the presence or absence of malignantdisease.Performed at: [address] [id number] Director: Chuy Rizvi PhD, Phone: [phone] Performed By: #### L 100.9950, L100.0100, L3100.1350, L503.6550, L503.0106, L503.6030, L500.4050 ####[facility] [address] [place], [address] Absolute lymphocyte countOrd ered By: Ric Noriega on 03-13-2025 Lymphocytes Auto (Unsp spec) [#/Vol] 1.60 10*3/uL 0.83-4.51 [facility] Anion gap in Serum or Plasma Ordered By: Ric Noriega on 03-13-2025 Anion gap [Moles/Vol] 16 mmol/L High 5-15 [facility] Automated lymphocyte count a s percentage of total leukocytesOrdered By: Ric Noriega on 03-13-2025 Lymphocytes/100 WBC Auto (Unsp spec) 24.2 % 19-41 [facility] BUN/creatinine ratioOrdered By: Ric Noriega on 03-13-2025 Urea nitrogen/Creatinine [Mass ratio] 24.6 mg/mg High 10-20 [facility] Basophil percentageOrdered B y: Ric Noriega on 03-13-2025 Basophils/100 WBC (Bld) 0.9 % 0-1 [facility] Bilirubin, totalOrdered By: Ric Noriega on 03-13-2025 Bilirubin [Mass/Vol] 1.04 mg/dL 0.00-1.30 [facility] Blood manual differential co mment interpretation (narrative result)Ordered By: Ric Noriega on 03-13-2025 Manual differential comment Cristhian (Bld) [Interp] SCANNED [facility] Blood polychromasia detectio n by light microscopyOrdered By: [facility] on 03-13-2025 Polychromasia LM Ql (Bld) 1+ [facility] CBC W/Diff, Automatedon Anisocytosis Ql (Bld) 2+ Normal [facility] Comment on above: Performed By: #### L 100.9950, L100.0100, L3100.1350, L503.6550, L503.0106, L503.6030, L500.4050 ####[facility] [address] [place], [address] POLYCHROMASIA 1+ Normal [facility] Comment on above: Performed By: #### L 100.9950, L100.0100, L3100.1350, L503.6550, L503.0106, L503.6030, L500.4050 ####[facility] [address] [place], [address] PLT EST ADEQUATE Normal ADEQ [facility] Comment on above: Performed By: #### L 100.9950, L100.0100, L3100.1350, L503.6550, L503.0106, L503.6030, L500.4050 ####[facility] [address] [place], [address] SMEAR COMMENT SCANNED Normal [facility] Comment on above: Performed By: #### L 100.9950, L100.0100, L3100.1350, L503.6550, L503.0106, L503.6030, L500.4050 ####[facility] [address] [place], [address] Carbon dioxide, total [Moles /volume] in Central venous bloodOrdered By: Ric Noriega on 03-13-2025 CO2 [Moles/Vol] 24.4 mmol/L 21.0-32.0 [facility] Chloride assayOrdered By: Luis Noriega on 03-13-2025 Chloride [Moles/Vol] 92 mmol/L Low 98-108 [facility] Comprehensive Metabolic Prof ilon 03-13-2025 Albumin [Mass/Vol] 4.0 g/dL Normal 3.4-4.8 [facility] Comment on above: Performed By: #### L 100.9950, L100.0100, L3100.1350, L503.6550, L503.0106, L503.6030, L500.4050 ####[facility] [address] [place], [address] Albumin/Globulin [Mass ratio] 1.2 {ratio} Normal 0.9-2.4 [facility] Comment on above: Performed By: #### L 100.9950, L100.0100, L3100.1350, L503.6550, L503.0106, L503.6030, L500.4050 ####[facility] [address] [place], [address] ALK PHOS 136 U/L High 35-104 [facility] Comment on above: Performed By: #### L 100.9950, L100.0100, L3100.1350, L503.6550, L503.0106, L503.6030, L500.4050 ####[facility] [address] [place], [address] ALT [Catalytic activity/Vol] 16 U/L Normal <=34 [facility] Comment on above: Performed By: #### L 100.9950, L100.0100, L3100.1350, L503.6550, L503.0106, L503.6030, L500.4050 ####[facility] [address] [place], [address] AST [Catalytic activity/Vol] 33 U/L High <=31 [facility] Comment on above: Performed By: #### L 100.9950, L100.0100, L3100.1350, L503.6550, L503.0106, L503.6030, L500.4050 ####[facility] [address] [place], [address] Bilirubin [Mass/Vol] 1.04 mg/dL Normal 0.00-1.30 [facility] Comment on above: Performed By: #### L 100.9950, L100.0100, L3100.1350, L503.6550, L503.0106, L503.6030, L500.4050 ####[facility] [address] [place], [address] BUN/CRE 24.6 RATIO High 10-20 [facility] Comment on above: Performed By: #### L 100.9950, L100.0100, L3100.1350, L503.6550, L503.0106, L503.6030, L500.4050 ####[facility] [address] [place], [address] Calcium [Mass/Vol] 9.2 mg/dL Normal 7.6-11.0 [facility] Comment on above: Performed By: #### L 100.9950, L100.0100, L3100.1350, L503.6550, L503.0106, L503.6030, L500.4050 ####[facility] [address] [place], [address] Chloride [Moles/Vol] 92 mmol/L Low 98-108 [facility] Comment on above: Performed By: #### L 100.9950, L100.0100, L3100.1350, L503.6550, L503.0106, L503.6030, L500.4050 ####[facility] [address] [place], [address] CO2 [Moles/Vol] 24.4 mmol/L Normal 21.0-32.0 [facility] Comment on above: Performed By: #### L 100.9950, L100.0100, L3100.1350, L503.6550, L503.0106, L503.6030, L500.4050 ####[facility] [address] [place], [address] Creatinine [Mass/Vol] 2.12 mg/dL High 0.70-1.20 [facility] Comment on above: Performed By: #### L 100.9950, L100.0100, L3100.1350, L503.6550, L503.0106, L503.6030, L500.4050 ####[facility] [address] [place], [address] GAP 16 High 5-15 [facility] Comment on above: Performed By: #### L 100.9950, L100.0100, L3100.1350, L503.6550, L503.0106, L503.6030, L500.4050 ####[facility] [address] [place], [address] GFR/1.73 sq M.predicted among non-blacks MDRD (S/P/Bld) [Vol rate/Area] 23 mL/min/{1.73_m2} Low >60 [facility] Comment on above: Result Comment: mL/m in/1.73m2 CKD-EPI Creatinine Equation (2020) Performed By: #### L 100.9950, L100.0100, L3100.1350, L503.6550, L503.0106, L503.6030, L500.4050 ####[facility] [address] [place], [place], [phone] Globulin (S) [Mass/Vol] 3.3 g/dL Normal 2.2-4.2 [facility] Comment on above: Performed By: #### L 100.9950, L100.0100, L3100.1350, L503.6550, L503.0106, L503.6030, L500.4050 ####[facility] [address] [place], [place], [phone]43) Glucose [Mass/Vol] 139 mg/dL High 70-99 [facility] Comment on above: Performed By: #### L 100.9950, L100.0100, L3100.1350, L503.6550, L503.0106, L503.6030, L500.4050 ####[facility] [address] [place], [address] Potassium [Moles/Vol] 3.8 mmol/L Normal 3.3-5.1 [facility] Comment on above: Performed By: #### L 100.9950, L100.0100, L3100.1350, L503.6550, L503.0106, L503.6030, L500.4050 ####[facility] [address] [place], [address] Sodium [Moles/Vol] 132 mmol/L Low 133-145 [facility] Comment on above: Performed By: #### L 100.9950, L100.0100, L3100.1350, L503.6550, L503.0106, L503.6030, L500.4050 ####[facility] [address] [place], [address] T PROT 7.3 g/dL Normal 5.9-8.4 [facility] Comment on above: Performed By: #### L 100.9950, L100.0100, L3100.1350, L503.6550, L503.0106, L503.6030, L500.4050 ####[facility] [address] [place], [address] Urea nitrogen [Mass/Vol] 52 mg/dL High 4-19 [facility] Comment on above: Performed By: #### L 100.9950, L100.0100, L3100.1350, L503.6550, L503.0106, L503.6030, L500.4050 ####[facility] [address] [place], [address] Eosinophil percentageOrdered By: Ric Noriega on 03-13-2025 Eosinophils/100 WBC (Bld) 1.2 % 0-5 [facility] Erythrocyte distribution wid th ratioOrdered By: Ric Noriega on 03-13-2025 Erythrocyte distribution width (RBC) [Ratio] 25.2 % High 11.6-14.6 [facility] Erythrocyte distribution wid th standard deviationOrdered By: Ric Noriega on 03-13-2025 Erythrocyte distribution width (RBC) [Ratio] 82.1 fl High 35.1-43.9 [facility] Ferritinon 03-13-2025 Ferritin [Mass/Vol] 48 ng/mL Normal 22-378 [facility] Comment on above: Performed By: #### L 100.9950, L100.0100, L3100.1350, L503.6550, L503.0106, L503.6030, L500.4050 ####[facility] [address] [place], [place], [id number] Glomerular filtration rate ( GFR) estimation/1.73 sq m using serum, plasma, or whole bOrdered By: Ric Noriega on 03-13-2025 GFR/1.73 sq M.predicted among non-blacks MDRD (S/P/Bld) [Vol rate/Area] 23 mL/min/{1.73_m2} Low >60 [facility] Hematocrit Auto (Bld) [Volum e fraction]Ordered By: Ric Noriega on 03-13-2025 Hematocrit (Bld) [Volume fraction] 27.8 % Low 37-47 [facility] Hemoglobin measurementOrdere d By: Ric Noriega on 03-13-2025 Hemoglobin (Bld) [Mass/Vol] 8.7 g/dL Low 12.0-15.0 [facility] Immature granulocytes/100 WB C Auto (Bld)Ordered By: Ric Noriega on 03-13-2025 Immature granulocytes/100 WBC (Bld) 0.200 % 0.0-0.9 [facility] Iron measurement (mass/mass) Ordered By: Ric Noriega on 03-13-2025 Iron (Unsp spec) [Mass/Mass] 39 ug/dL Low 50-170 [facility] Iron+Iron Binding Capacityon 03-13-2025 TIBC 453 ug/dL High 250-450 [facility] Comment on above: Performed By: #### L 100.9950, L100.0100, L3100.1350, L503.6550, L503.0106, L503.6030, L500.4050 ####[facility] [address] [place], [address] MCV (mean corpuscular volume ) determinationOrdered By: Ric Noriega on 03-13-2025 MCV (RBC) [Entitic vol] 89.7 fL 81-99 [facility] Mean corpuscular hemoglobin (MCH) determinationOrdered By: Ric Noriega on 03-13-2025 MCH (RBC) [Entitic mass] 28.1 pg 27.0-32.0 [facility] Monocyte percentageOrdered B y: Ric Noriega on 03-13-2025 Monocytes/100 WBC (Bld) 14.7 % High 0-10 [facility] Neutrophil percentageOrdered By: Ric Noriega on 03-13-2025 Neutrophils/100 WBC (Bld) 58.8 % 47-70 [facility] No Panel InformationOrdered By: Ric Noriega on 03-13-2025 2+ [facility] 33 U/L High <32 [facility] 414 ug/dL 228-428 [facility] Oncology Visit Reporton Oncology Visit Report Normal [facility] Platelet countOrdered By: Luis Noriega on 03-13-2025 Platelets (Bld) [#/Vol] 184 10*3/uL 150-450 [facility] Platelet estimateOrdered By: Ric Noriega on 03-13-2025 Platelets LM Ql (Bld) ADEQUATE ADEQ [facility] Potassium measurement (mass/ volume)Ordered By: Ric Noriega on 03-13-2025 Potassium (Unsp spec) [Mass/Vol] 3.8 mmol/L 3.3-5.1 [facility] RBC Auto (Bld) [#/Vol]Ordere d By: Ric Noriega on 03-13-2025 RBC (Bld) [#/Vol] 3.10 10*6/uL Low 4.2-5.4 [facility] Retic Panelon 03-13-2025 IM RET FRACTION 30.30 High 3.00-15.90 [facility] Comment on above: Performed By: #### L 100.9950, L100.0100, L3100.1350, L503.6550, L503.0106, L503.6030, L500.4050 ####[facility] [address] [place], [place], [phone] RET-HE 27.7 pg Low 30-35 [facility] Comment on above: Performed By: #### L 100.9950, L100.0100, L3100.1350, L503.6550, L503.0106, L503.6030, L500.4050 ####[facility] [address] [place], [place], [phone]) Retic Count 2.47 High 0.5-1.5 [facility] Comment on above: Performed By: #### L 100.9950, L100.0100, L3100.1350, L503.6550, L503.0106, L503.6030, L500.4050 ####[facility] [address] [place], [place], [id number] Reticulocyte hemoglobin equi valent (RET-He) measurementOrdered By: Ric Noriega on 03-13-2025 Hemoglobin (Reticulocytes) [Entitic mass] 27.7 pg Low 30-35 [facility] Reticulocytes Auto (Bld) [#/ Vol]Ordered By: Ric Noriega on 03-13-2025 Reticulocytes/100 RBC (Bld) 2.47 % High 0.5-1.5 [facility] Serum creatinine measurement (mass/volume)Ordered By: Ric Noriega on 03-13-2025 Creatinine [Mass/Vol] 2.12 mg/dL High 0.70-1.20 [facility] Serum globulin measurementOr dered By: Ric Noriega on 03-13-2025 Globulin (S) [Mass/Vol] 3.3 g/dL 2.2-4.2 [facility] Serum glucose measurement (m ass/volume)Ordered By: Ric Noriega on 03-13-2025 Glucose [Mass/Vol] 139 mg/dL High 70-99 [facility] Serum or plasma alanine craven otransferase (ALT) measurementOrdered By: Ric Noriega on 03-13-2025 ALT [Catalytic activity/Vol] 16 U/L <35 [facility] Serum or plasma albumin bijan urement (mass/volume)Ordered By: Ric Noriega on 03-13-2025 Albumin [Mass/Vol] 4.0 g/dL 3.4-4.8 [facility] Serum or plasma albumin/glob ulin mass ratioOrdered By: Ric Noriega on 03-13-2025 Albumin/Globulin [Mass ratio] 1.2 {ratio} 0.9-2.4 [facility] Serum or plasma alkaline da sphatase measurementOrdered By: Ric Noriega on 03-13-2025 ALP [Catalytic activity/Vol] 136 U/L High 35-104 [facility] Serum or plasma calcium bijan urement (mass/volume)Ordered By: Ric Noriega on 03-13-2025 Calcium [Mass/Vol] 9.2 mg/dL 7.6-11.0 [facility] Serum or plasma erythropoiet in (EPO) measurement (units/volume)Ordered By: Ric Noriega on 03-13-2025 Erythropoietin (EPO) Qn 190.9 mIU/mL High 2.6-18.5 [facility] Serum or plasma ferritin austin surement (mass/volume)Ordered By: Ric Noriega on 03-13-2025 Ferritin [Mass/Vol] 48 ng/mL 22-378 [facility] Serum or plasma iron saturat ion measurement (mass fraction)Ordered By: Ric Noriega on 03-13-2025 Iron saturation [Mass fraction] 8.6 % Low 13-59 [facility] Serum or plasma urea nitroge n measurement (mass/volume)Ordered By: Ric Noriega on 03-13-2025 Urea nitrogen [Mass/Vol] 52 mg/dL High 4-19 [facility] Sodium levelOrdered By: Abi Noriega on 03-13-2025 Sodium [Moles/Vol] 132 mmol/L Low 133-145 [facility] Total proteinOrdered By: Ashwin walter Hari on 03-13-2025 Protein [Mass/Vol] 7.3 g/dL 5.9-8.4 [facility] Vitamin B12on 03-13-2025 Cobalamin (Vitamin B12) [Mass/Vol] 1100 pg/mL High 180-914 [facility] Comment on above: Performed By: #### L 100.9950, L100.0100, L3100.1350, L503.6550, L503.0106, L503.6030, L500.4050 ####[facility] [address] [place], [place], [address] Vitamin B12 ser/plasOrdered By: Ric Hari on 03-13-2025 Cobalamin (Vitamin B12) [Mass/Vol] 1100 pg/mL High 180-914 [facility] White blood cell (WBC) count Ordered By: Ric Noriega on 03-13-2025 WBC (Bld) [#/Vol] 6.6 10*3/uL 4.4-11.0 [facility] Absolute lymphocyte countOrd ered By: Vincent Flores on 03-09-2025 Lymphocytes Auto (Unsp spec) [#/Vol] 2.06 10*3/uL 0.83-4.51 [facility] Anion gap in Serum or Plasma Ordered By: Vincent Flores on 03-09-2025 Anion gap [Moles/Vol] 13 mmol/L 5-15 [facility] Automated lymphocyte count a s percentage of total leukocytesOrdered By: Vincent Flores on 03-09-2025 Lymphocytes/100 WBC Auto (Unsp spec) 33.8 % 19-41 [facility] BUN/creatinine ratioOrdered By: Vincent Flores on 03-09-2025 Urea nitrogen/Creatinine [Mass ratio] 27.6 mg/mg High 10 [facility] Basic Metabolic Profile (BMP )on 03-09-2025 BUN/CRE 27.6 RATIO High 04-23 [facility] Comment on above: Performed By: #### L 500.2500, L100.0100 ####[facility] [address] [place], [address] Calcium [Mass/Vol] 9.1 mg/dL Normal 7.6-11.0 [facility] Comment on above: Performed By: #### L 500.2500, L100.0100 ####[facility] [address] [place], [address] Chloride [Moles/Vol] 97 mmol/L Low 98-108 [facility] Comment on above: Performed By: #### L 500.2500, L100.0100 ####[facility] [address] [place], [address] CO2 [Moles/Vol] 21.7 mmol/L Normal 21.0-32.0 [facility] Comment on above: Performed By: #### L 500.2500, L100.0100 ####[facility] [address] [place], [address] Creatinine [Mass/Vol] 1.80 mg/dL High 0.70-1.20 [facility] Comment on above: Performed By: #### L 500.2500, L100.0100 ####[facility] [address] [place], [address] GAP 13 Normal 5-15 [facility] Comment on above: Performed By: #### L 500.2500, L100.0100 ####[facility] [address] [place], [address] GFR/1.73 sq M.predicted among non-blacks MDRD (S/P/Bld) [Vol rate/Area] 28 mL/min/{1.73_m2} Low >60 [facility] Comment on above: Result Comment: mL/m in/1.73m2 CKD-EPI Creatinine Equation (2020) Performed By: #### L 500.2500, L100.0100 ####[facility] [address] [place], [address] Glucose [Mass/Vol] 136 mg/dL High 70-99 [facility] Comment on above: Performed By: #### L 500.2500, L100.0100 ####[facility] [address] [place], [address] Potassium [Moles/Vol] 5.0 mmol/L Normal 3.3-5.1 [facility] Comment on above: Performed By: #### L 500.2500, L100.0100 ####[facility] [address] [place], [address] Sodium [Moles/Vol] 131 mmol/L Low 133-145 [facility] Comment on above: Performed By: #### L 500.2500, L100.0100 ####[facility] [address] [place], [address] Urea nitrogen [Mass/Vol] 50 mg/dL High 4-19 [facility] Comment on above: Performed By: #### L 500.2500, L100.0100 ####[facility] [address] [place], [address] Basophil percentageOrdered B y: Vincent Flores on 03-09-2025 Basophils/100 WBC (Bld) 1.0 % 0-1 [facility] Blood manual differential co mment interpretation (narrative result)Ordered By: Vincent Flores on 03-09-2025 Manual differential comment Cristhian (Bld) [Interp] SCANNED [facility] CBC W/Diff, Automatedon Anisocytosis Ql (Bld) 2+ Normal [facility] Comment on above: Performed By: #### L 500.2500, L100.0100 ####[facility] [address] [place], [address] REACTIVE LYMPH 1+ Normal [facility] Comment on above: Performed By: #### L 500.2500, L100.0100 ####[facility] [address] [place], [place], [address] SMEAR COMMENT SCANNED Normal [facility] Comment on above: Performed By: #### L 500.2500, L100.0100 ####[facility] [address] [facility], [address] Carbon dioxide, total [Moles /volume] in Central venous bloodOrdered By: Vincent Flores on 03-09-2025 CO2 [Moles/Vol] 21.7 mmol/L 21.0-32.0 [facility] Chloride assayOrdered By: Ishmael Flores on 03-09-2025 Chloride [Moles/Vol] 97 mmol/L Low 98-108 [facility] Eosinophil percentageOrdered By: Vincent Flores on 03-09-2025 Eosinophils/100 WBC (Bld) 1.6 % 0-5 [facility] Erythrocyte distribution wid th ratioOrdered By: Vincent Flores 03-09-2025 Erythrocyte distribution width (RBC) [Ratio] 24.9 % High 11.6-14.6 [facility] Erythrocyte distribution wid th standard deviationOrdered By: Vincent Flores 03-09-2025 Erythrocyte distribution width (RBC) [Ratio] 81.9 fl High 35.1-43.9 [facility] Glomerular filtration rate ( GFR) estimation/1.73 sq m using serum, plasma, or whole bOrdered By: Vincent Flores on 03-09-2025 GFR/1.73 sq M.predicted among non-blacks MDRD (S/P/Bld) [Vol rate/Area] 28 mL/min/{1.73_m2} Low >60 [facility] Hematocrit Auto (Bld) [Volum e fraction]Ordered By: Vincent Flores 03-09-2025 Hematocrit (Bld) [Volume fraction] 28.3 % Low 37-47 [facility] Hemoglobin measurementOrdere d By: Vincent Flores 03-09-2025 Hemoglobin (Bld) [Mass/Vol] 8.9 g/dL Low 12.0-15.0 [facility] Immature granulocytes/100 WB C Auto (Bld)Ordered By: Vincent Flores 03-09-2025 Immature granulocytes/100 WBC (Bld) 0.500 % 0.0-0.9 [facility] MCV (mean corpuscular volume ) determinationOrdered By: Vincent Flores on 03-09-2025 MCV (RBC) [Entitic vol] 89.3 fL 81-99 [facility] Mean corpuscular hemoglobin (MCH) determinationOrdered By: Vincent Flores on 03-09-2025 MCH (RBC) [Entitic mass] 28.1 pg 27.0-32.0 [facility] Monocyte percentageOrdered B y: Vincent Flores on 03-09-2025 Monocytes/100 WBC (Bld) 16.2 % High 0-10 [facility] Neutrophil percentageOrdered By: Vincent Flores on 03-09-2025 Neutrophils/100 WBC (Bld) 46.9 % Low 47-70 [facility] No Panel InformationOrdered By: Vincent Flores on 03-09-2025 2+ [facility] Platelet countOrdered By: Ishmael Flores on 03-09-2025 Platelets (Bld) [#/Vol] 191 10*3/uL 150-450 [facility] Potassium measurement (mass/ volume)Ordered By: Vincent Flores on 03-09-2025 Potassium (Unsp spec) [Mass/Vol] 5.0 mmol/L 3.3-5.1 [facility] RBC Auto (Bld) [#/Vol]Ordere d By: Vincent Flores 03-09-2025 RBC (Bld) [#/Vol] 3.17 10*6/uL Low 4.2-5.4 [facility] Serum creatinine measurement (mass/volume)Ordered By: Vincent Flores on 03-09-2025 Creatinine [Mass/Vol] 1.80 mg/dL High 0.70-1.20 [facility] Serum glucose measurement (m ass/volume)Ordered By: Vincent Flores on 03-09-2025 Glucose [Mass/Vol] 136 mg/dL High 70-99 [facility] Serum or plasma calcium bijan urement (mass/volume)Ordered By: Vincent Flores 03-09-2025 Calcium [Mass/Vol] 9.1 mg/dL 7.6-11.0 [facility] Serum or plasma urea nitroge n measurement (mass/volume)Ordered By: Vincent Flores on 03-09-2025 Urea nitrogen [Mass/Vol] 50 mg/dL High - [facility] Sodium levelOrdered By: Vincent Flores on 03-09-2025 Sodium [Moles/Vol] 131 mmol/L Low 133-145 [facility] White blood cell (WBC) count Ordered By: Vincent Flores on 03-09-2025 WBC (Bld) [#/Vol] 6.1 10*3/uL 4.4-11.0 [facility] Anion gap in Serum or Plasma Ordered By: Vincent Flores on 03-02-2025 Anion gap [Moles/Vol] 14 mmol/L - [facility] BUN/creatinine ratioOrdered By: Vincent Flores on 03-02-2025 Urea nitrogen/Creatinine [Mass ratio] 45.3 mg/mg High 04-23 [facility] Basic Metabolic Profile (BMP )on 03-02-2025 BUN/CRE 45.3 RATIO High 04-23 [facility] Comment on above: Performed By: #### L 500.2500 ####[facility] [address] [place], [address] GAP 14 Normal - [facility] Comment on above: Performed By: #### L 500.2500 ####[facility] [address] [place], [address] Potassium [Moles/Vol] 4.2 mmol/L Normal 3.3-5.1 [facility] Comment on above: Performed By: #### L 500.2500 ####[facility] [address] [place], [address] Carbon dioxide, total [Moles /volume] in Central venous bloodOrdered By: Vincent Flores on 03-02-2025 CO2 [Moles/Vol] 25.2 mmol/L Normal 21.0-32.0 [facility] Comment on above: Performed By: #### L 500.2500 ####[facility] [address] [place], [address] Chloride assayOrdered By: Ishmael Petersok on 03-02-2025 Chloride [Moles/Vol] 94 mmol/L Low 98-108 [facility] Comment on above: Performed By: #### L 500.2500 ####[facility] [address] [place], [place], [address] Glomerular filtration rate ( GFR) estimation/1.73 sq m using serum, plasma, or whole bOrdered By: Vincent Flores on 03-02-2025 GFR/1.73 sq M.predicted among non-blacks MDRD (S/P/Bld) [Vol rate/Area] 28 mL/min/{1.73_m2} Low >60 [facility] Comment on above: Result Comment: mL/m in/1.73m2 CKD-EPI Creatinine Equation (2020) Performed By: #### L 500.2500 ####[facility] [address] [place], [place], [address] Potassium measurement (mass/ volume)Ordered By: Vincent Flores on 03-02-2025 Potassium (Unsp spec) [Mass/Vol] 4.2 mmol/L 3.3-5.1 [facility] Serum creatinine measurement (mass/volume)Ordered By: Vincent Flores on 03-02-2025 Creatinine [Mass/Vol] 1.79 mg/dL High 0.70-1.20 [facility] Comment on above: Performed By: #### L 500.2500 ####[facility] [address] [place], [place], [address] Serum glucose measurement (m ass/volume)Ordered By: Vincent Flores on 03-02-2025 Glucose [Mass/Vol] 193 mg/dL High 70-99 [facility] Comment on above: Performed By: #### L 500.2500 ####[facility] [address] [place], [place], [address] Serum or plasma calcium bijan urement (mass/volume)Ordered By: Vincent Flores on 03-02-2025 Calcium [Mass/Vol] 9.4 mg/dL Normal 7.6-11.0 [facility] Comment on above: Performed By: #### L 500.2500 ####[facility] [address] [place], [address] Serum or plasma urea nitroge n measurement (mass/volume)Ordered By: Vincent Flores on 03-02-2025 Urea nitrogen [Mass/Vol] 81 mg/dL High 4-19 [facility] Comment on above: Performed By: #### L 500.2500 ####[facility] [address] [place], [address] Sodium levelOrdered By: Vincent Flores on 03-02-2025 Sodium [Moles/Vol] 133 mmol/L Normal 133-145 [facility] Comment on above: Performed By: #### L 500.2500 ####[facility] [address] [place], [address] Urine Cultureon 03-02-2025 URC Normal [facility] Comment on above: Performed By: #### L 500.4050, L503.7505, L501.9520, L400.0001, L100.0100, M100.2200 ####[facility] [address] [place], [address] Wound Ctr History AND Physic apollo 03-01-2025 Wound Ctr History & Physical Normal [facility] Absolute lymphocyte countOrd ered By: Vincent Flores on 02-27-2025 Lymphocytes Auto (Unsp spec) [#/Vol] 1.36 10*3/uL 0.83-4.51 [facility] Anion gap in Serum or Plasma Ordered By: Vincent Flores on 02-27-2025 Anion gap [Moles/Vol] 18 mmol/L High 5-15 [facility] Automated lymphocyte count a s percentage of total leukocytesOrdered By: Vincent Flores on 02-27-2025 Lymphocytes/100 WBC Auto (Unsp spec) 19.4 % 19-41 [facility] BUN/creatinine ratioOrdered By: Vincent Flores on 02-27-2025 Urea nitrogen/Creatinine [Mass ratio] 56.8 mg/mg High 10-20 [facility] Basophil percentageOrdered B y: Vincent Flores on 02-27-2025 Basophils/100 WBC (Bld) 0.7 % 0-1 [facility] Bilirubin Test strip Ql (U)O rdered By: Vincent Flores on 02-27-2025 Bilirubin Ql (U) Negative Negative [facility] Bilirubin, totalOrdered By: Vincent Flores on 02-27-2025 Bilirubin [Mass/Vol] 1.42 mg/dL High 0.00-1.30 [facility] Comment on above: Performed By: #### L 500.4050, L503.7505, L501.9520, L400.0001, L100.0100, M100.2200 ####[facility] [address] [place], [place], [address] Blood manual differential co mment interpretation (narrative result)Ordered By: Vincent Flores on 02-27-2025 Manual differential comment Cristhian (Bld) [Interp] SCANNED [facility] Blood polychromasia detectio n by light microscopyOrdered By: Vincent Flores on 02-27-2025 Polychromasia LM Ql (Bld) RARE [facility] CBC W/Diff, Automatedon 02-03 Anisocytosis Ql (Bld) 2+ Normal [facility] Comment on above: Performed By: #### L 500.4050, L503.7505, L501.9520, L400.0001, L100.0100, M100.2200 ####[facility] [address] [place], [place], [address] POLYCHROMASIA RARE Normal [facility] Comment on above: Performed By: #### L 500.4050, L503.7505, L501.9520, L400.0001, L100.0100, M100.2200 ####[facility] [address] [place], [place], [address] SMEAR COMMENT SCANNED Normal [facility] Comment on above: Performed By: #### L 500.4050, L503.7505, L501.9520, L400.0001, L100.0100, M100.2200 ####[facility] [address] [place], [address] Carbon dioxide, total [Moles /volume] in Central venous bloodOrdered By: Vincent Flores on 02-27-2025 CO2 [Moles/Vol] 25.4 mmol/L Normal 21.0-32.0 [facility] Comment on above: Performed By: #### L 500.4050, L503.7505, L501.9520, L400.0001, L100.0100, M100.2200 ####[facility] [address] [place], [address] Chloride assayOrdered By: Ishmael Flores on 02-27-2025 Chloride [Moles/Vol] 90 mmol/L Low 98-108 [facility] Comment on above: Performed By: #### L 500.4050, L503.7505, L501.9520, L400.0001, L100.0100, M100.2200 ####[facility] [address] [place], [address] Comprehensive Metabolic Prof ilon 02-27-2025 ALK PHOS 123 U/L High 35-104 [facility] Comment on above: Performed By: #### L 500.4050, L503.7505, L501.9520, L400.0001, L100.0100, M100.2200 ####[facility] [address] [place], [address] AST [Catalytic activity/Vol] 50 U/L High <=31 [facility] Comment on above: Performed By: #### L 500.4050, L503.7505, L501.9520, L400.0001, L100.0100, M100.2200 ####[facility] [address] [place], [address] BUN/CRE 56.8 RATIO High 10-20 [facility] Comment on above: Performed By: #### L 500.4050, L503.7505, L501.9520, L400.0001, L100.0100, M100.2200 ####[facility] [address] [place], [address] GAP 18 High 5-15 [facility] Comment on above: Performed By: #### L 500.4050, L503.7505, L501.9520, L400.0001, L100.0100, M100.2200 ####[facility] [address] [place], [address] Potassium [Moles/Vol] 3.6 mmol/L Normal 3.3-5.1 [facility] Comment on above: Performed By: #### L 500.4050, L503.7505, L501.9520, L400.0001, L100.0100, M100.2200 ####[facility] [address] [place], [address] T PROT 7.5 g/dL Normal 5.9-8.4 [facility] Comment on above: Performed By: #### L 500.4050, L503.7505, L501.9520, L400.0001, L100.0100, M100.2200 ####[facility] [address] [place], [address] Eosinophil percentageOrdered By: Vincent Mark on 02-27-2025 Eosinophils/100 WBC (Bld) 1.0 % 0-5 [facility] Erythrocyte distribution wid th ratioOrdered By: Vincent Flores on 02-27-2025 Erythrocyte distribution width (RBC) [Ratio] 24.3 % High 11.6-14.6 [facility] Erythrocyte distribution wid th standard deviationOrdered By: [facility] on 02-27-2025 Erythrocyte distribution width (RBC) [Ratio] 76.4 fl High 35.1-43.9 [facility] Glomerular filtration rate ( GFR) estimation/1.73 sq m using serum, plasma, or whole bOrdered By: Vincent Flores on 02-27-2025 GFR/1.73 sq M.predicted among non-blacks MDRD (S/P/Bld) [Vol rate/Area] 27 mL/min/{1.73_m2} Low >60 [facility] Comment on above: Result Comment: mL/m in/1.73m2 CKD-EPI Creatinine Equation (2020) Performed By: #### L 500.4050, L503.7505, L501.9520, L400.0001, L100.0100, M100.2200 ####[facility] [address] [place], [place], [address] Hematocrit Auto (Bld) [Volum e fraction]Ordered By: Vincent Flores on 02-27-2025 Hematocrit (Bld) [Volume fraction] 26.0 % Low 37-47 [facility] Hemoglobin measurementOrdere d By: Vincent Flores on 02-27-2025 Hemoglobin (Bld) [Mass/Vol] 8.4 g/dL Low 12.0-15.0 [facility] Immature granulocytes/100 WB C Auto (Bld)Ordered By: Vincent Flores 02-27-2025 Immature granulocytes/100 WBC (Bld) 0.300 % 0.0-0.9 [facility] Ketones Test strip Ql (U)Ord ered By: Vincent Flores 02-27-2025 Ketones Ql (U) Negative Negative [facility] MCV (mean corpuscular volume ) determinationOrdered By: Vincent Flores 02-27-2025 MCV (RBC) [Entitic vol] 87.5 fL 81-99 [facility] Mean corpuscular hemoglobin (MCH) determinationOrdered By: Vincent Flores 02-27-2025 MCH (RBC) [Entitic mass] 28.3 pg 27.0-32.0 [facility] Monocyte percentageOrdered B y: Vincent Flores on 02-27-2025 Monocytes/100 WBC (Bld) 11.7 % High 0-10 [facility] Mucus LM Ql (Urine sed)Order ed By: Vincent Flores on 02-27-2025 Mucus Ql (Urine sed) 0 SEEN /hpf [facility] Natriuretic peptide.B prohor daria N-Terminal [Mass/volume] in Serum or PlasmaOrdered By: Vincent Flores on 02-27-2025 Natriuretic peptide.B prohormone N-Terminal [Mass/Vol] 9003 pg/mL High <1800 [facility] Neutrophil percentageOrdered By: Vincent Flores on 02-27-2025 Neutrophils/100 WBC (Bld) 66.9 % 47-70 [facility] Nitrite Test strip Ql (U)Ord ered By: Vincent Flores on 02-27-2025 Nitrite Ql (U) Negative Negative [facility] No Panel InformationOrdered By: Vincent Flores on 02-27-2025 2+ [facility] 50 U/L High <32 [facility] Platelet countOrdered By: Ishmael Flores on 02-27-2025 Platelets (Bld) [#/Vol] 181 10*3/uL 150-450 [facility] Potassium measurement (mass/ volume)Ordered By: Vincent Flores on 02-27-2025 Potassium (Unsp spec) [Mass/Vol] 3.6 mmol/L 3.3-5.1 [facility] Pro- Brain NATRIURETIC PEPTI Drew 02-27-2025 Natriuretic peptide B (Bld) [Mass/Vol] 9003 pg/mL High <=1800 [facility] Comment on above: Result Comment: Hear t Failure Unlikely: < 300 pg/mLHeart Failure Likely< 50 Years: > 450 pg/mL50-75 Years: > 900 pg/mL>75 Years: > 1800 pg/mL Performed By: #### L 500.4050, L503.7505, L501.9520, L400.0001, L100.0100, M100.2200 ####[facility] [address] [place], [address] Protein Test strip Ql (U)Ord ered By: Vincent Flores on 02-27-2025 Protein Ql (U) 30 mg/dl High Negative [facility] RBC Auto (Bld) [#/Vol]Ordere d By: Vincent Flores on 02-27-2025 RBC (Bld) [#/Vol] 2.97 10*6/uL Low 4.2-5.4 [facility] Serum creatinine measurement (mass/volume)Ordered By: Vincent Flores on 02-27-2025 Creatinine [Mass/Vol] 1.90 mg/dL High 0.70-1.20 [facility] Comment on above: Performed By: #### L 500.4050, L503.7505, L501.9520, L400.0001, L100.0100, M100.2200 ####[facility] [address] [place], [address] Serum globulin measurementOr dered By: Vincent Flores on 02-27-2025 Globulin (S) [Mass/Vol] 3.4 g/dL Normal 2.2-4.2 [facility] Comment on above: Performed By: #### L 500.4050, L503.7505, L501.9520, L400.0001, L100.0100, M100.2200 ####[facility] [address] [place], [address] Serum glucose measurement (m ass/volume)Ordered By: Vincent Flores on 02-27-2025 Glucose [Mass/Vol] 290 mg/dL High 70-99 [facility] Comment on above: Performed By: #### L 500.4050, L503.7505, L501.9520, L400.0001, L100.0100, M100.2200 ####[facility] [address], [address] Serum or plasma alanine craven otransferase (ALT) measurementOrdered By: Vincetn Flores on 02-27-2025 ALT [Catalytic activity/Vol] 33 U/L Normal <=34 [facility] Comment on above: Performed By: #### L 500.4050, L503.7505, L501.9520, L400.0001, L100.0100, M100.2200 ####[facility] [address], [address] Serum or plasma albumin bijan urement (mass/volume)Ordered By: Vincent Floers on 02-27-2025 Albumin [Mass/Vol] 4.1 g/dL Normal 3.4-4.8 [facility] Comment on above: Performed By: #### L 500.4050, L503.7505, L501.9520, L400.0001, L100.0100, M100.2200 ####[facility] [address] [place], [address] Serum or plasma albumin/glob ulin mass ratioOrdered By: Vincent Flores on 02-27-2025 Albumin/Globulin [Mass ratio] 1.2 {ratio} Normal 0.9-2.4 [facility] Comment on above: Performed By: #### L 500.4050, L503.7505, L501.9520, L400.0001, L100.0100, M100.2200 ####[facility] [address] [place], [address] Serum or plasma alkaline da sphatase measurementOrdered By: Vincent Flores on 02-27-2025 ALP [Catalytic activity/Vol] 123 U/L High 35-104 [facility] Serum or plasma calcium bijan urement (mass/volume)Ordered By: Vincent Flores on 02-27-2025 Calcium [Mass/Vol] 9.9 mg/dL Normal 7.6-11.0 [facility] Comment on above: Performed By: #### L 500.4050, L503.7505, L501.9520, L400.0001, L100.0100, M100.2200 ####[facility] [address] [place], [address] Serum or plasma urea nitroge n measurement (mass/volume)Ordered By: Vincent Flores on 02-27-2025 Urea nitrogen [Mass/Vol] 108 mg/dL Invalid Interpretation Code 10-21 [facility] Comment on above: Result Comment: Crit ical Result(s) Called at: by: DR. FLORES??Results readback by same. Performed By: #### L 500.4050, L503.7505, L501.9520, L400.0001, L100.0100, M100.2200 ####[facility] [address] [place], [place], [address] Sodium levelOrdered By: Vincent Flores on 02-27-2025 Sodium [Moles/Vol] 134 mmol/L Normal 133-145 [facility] Comment on above: Performed By: #### L 500.4050, L503.7505, L501.9520, L400.0001, L100.0100, M100.2200 ####[facility] [address] [place], [address] Squamous epithelial cells de tection in urine sediment by light microscopyOrdered By: Vincent Flores on 02-27-2025 Epithelial cells.squamous LM Ql (Urine sed) 0 SEEN /hpf 5-10 [facility] TSH DL <= 0.005 mIU/L QnOrde red By: Vincent Flores on 02-27-2025 TSH Qn 3.010 uIU/mL 0.300-4.200 [facility] Thyroid Stim Hormone (TSH)on 02-27-2025 TSH 3.010 uIU/mL Normal 0.300-4.200 [facility] Comment on above: Performed By: #### L 500.4050, L503.7505, L501.9520, L400.0001, L100.0100, M100.2200 ####[facility] [address] [place], [place], [address] Total proteinOrdered By: Vincent Flores on 02-27-2025 Protein [Mass/Vol] 7.5 g/dL 5.9-8.4 [facility] Urinalysis, Completeon 02-27 EPI,RENAL 0-5 SEEN Normal 0-5 [facility] Comment on above: Order Comment: Urine , Random Performed By: #### L 500.4050, L503.7505, L501.9520, L400.0001, L100.0100, M100.2200 ####[facility] [address] [place], [address] BACTERIA 0 SEEN Normal None Seen [facility] Comment on above: Order Comment: Urine , Random Performed By: #### L 500.4050, L503.7505, L501.9520, L400.0001, L100.0100, M100.2200 ####[facility] [address] [place], [address] EPI,SQUAMOUS 0 SEEN Normal 5-10 [facility] Comment on above: Order Comment: Urine , Random Performed By: #### L 500.4050, L503.7505, L501.9520, L400.0001, L100.0100, M100.2200 ####[facility] [address] [place], [address] Mucus Ql (Urine sed) 0 SEEN Normal [facility] Comment on above: Order Comment: Urine , Random Performed By: #### L 500.4050, L503.7505, L501.9520, L400.0001, L100.0100, M100.2200 ####[facility] [address] [place], [address] RBC 0 SEEN Normal 0-5 [facility] Comment on above: Order Comment: Urine , Random Performed By: #### L 500.4050, L503.7505, L501.9520, L400.0001, L100.0100, M100.2200 ####[facility] [address] [place], [address] WBC 0 SEEN Normal 0-5 [facility] Comment on above: Order Comment: Urine , Random Performed By: #### L 500.4050, L503.7505, L501.9520, L400.0001, L100.0100, M100.2200 ####[facility] [address] [place], [address] Urine clarityOrdered By: Vincent Flores on 02-27-2025 Clarity (U) Sl. Cloudy Clear [facility] Urine color determinationOrd ered By: Vincent Flores on 02-27-2025 Color (U) Yellow Yellow [facility] Urine cultureOrdered By: Vincent Flores on 02-27-2025 Bacteria identified Cx Nom (U) ESBL Escherichia coli Abnormal [facility] Bacteria identified Cx Nom (U) ESBL Escherichia coli Abnormal [facility] Urine glucose detectionOrder ed By: Vincent Flores on 02-27-2025 Glucose Ql (U) Normal mg/dl Normal [facility] Urine leukocyte esterase det ection by dipstickOrdered By: Vincent Flores on 02-27-2025 Leukocyte esterase Test strip Ql (U) Negative Negative [facility] Urine pHOrdered By: Vincent Flores on 02-27-2025 pH (U) 6.5 [pH] 5.0 - 8.0 [facility] Urine sediment bacteria coun t by microscopy (number/high power field)Ordered By: Vincent Flores on 02-27-2025 Bacteria LM.HPF (Urine sed) [#/Area] 0 /[HPF] None Seen [facility] Urine sediment renal epithel ial cell count by microscopy (number/high power field)Ordered By: Vincent Flores on 02-27-2025 Epithelial cells.renal LM.HPF (Urine sed) [#/Area] 0 /[HPF] 0-5 [facility] Urine specific gravity measu rementOrdered By: Vincent Flores on 02-27-2025 Specific gravity (U) [Rel density] 1.010 1.002-1.030 [facility] Urine urobilinogen measureme ntOrdered By: Vincent Flores on 02-27-2025 Urobilinogen Ql (U) Normal mg/dl Normal [facility] White blood cell (WBC) count Ordered By: Vincent Flores on 02-27-2025 WBC (Bld) [#/Vol] 7.0 10*3/uL 4.4-11.0 [facility] White blood cell countOrdere d By: Vincent Flores on 02-27-2025 White blood cell count 0 SEEN /hpf 0-5 [facility] Absolute lymphocyte countOrd ered By: Vincent Flores on 02-21-2025 Lymphocytes Auto (Unsp spec) [#/Vol] 1.96 10*3/uL 0.83-4.51 [facility] Anion gap in Serum or Plasma Ordered By: Vincent Flores on 02-21-2025 Anion gap [Moles/Vol] 18 mmol/L High 5-15 [facility] Automated lymphocyte count a s percentage of total leukocytesOrdered By: Vincetn Flores on 02-21-2025 Lymphocytes/100 WBC Auto (Unsp spec) 27.8 % 19-41 [facility] BUN/creatinine ratioOrdered By: Vincent Flores on 02-21-2025 Urea nitrogen/Creatinine [Mass ratio] 44.3 mg/mg High 04-23 [facility] Basic Metabolic Profile (BMP )on 02-21-2025 BUN/CRE 44.3 RATIO High 04-23 [facility] Comment on above: Performed By: #### L 500.2500, L503.7505, L100.0100 ####[facility] [address] [place], [address] Calcium [Mass/Vol] 9.6 mg/dL Normal 7.6-11.0 [facility] Comment on above: Performed By: #### L 500.2500, L503.7505, L100.0100 ####[facility] [address] [place], [address] Chloride [Moles/Vol] 89 mmol/L Low 98-108 [facility] Comment on above: Performed By: #### L 500.2500, L503.7505, L100.0100 ####[facility] [address] [place], [address] CO2 [Moles/Vol] 26.5 mmol/L Normal 21.0-32.0 [facility] Comment on above: Performed By: #### L 500.2500, L503.7505, L100.0100 ####[facility] [address] [place], [address] Creatinine [Mass/Vol] 1.98 mg/dL High 0.70-1.20 [facility] Comment on above: Performed By: #### L 500.2500, L503.7505, L100.0100 ####[facility] [address] [place], [address] GAP 18 High 5-15 [facility] Comment on above: Performed By: #### L 500.2500, L503.7505, L100.0100 ####[facility] [address] [place], [address] GFR/1.73 sq M.predicted among non-blacks MDRD (S/P/Bld) [Vol rate/Area] 25 mL/min/{1.73_m2} Low >60 [facility] Comment on above: Result Comment: mL/m in/1.73m2 CKD-EPI Creatinine Equation (2020) Performed By: #### L 500.2500, L503.7505, L100.0100 ####[facility] [address] [place], [address] Glucose [Mass/Vol] 118 mg/dL High 70-99 [facility] Comment on above: Performed By: #### L 500.2500, L503.7505, L100.0100 ####[facility] [address] [place], [address] Potassium [Moles/Vol] 3.2 mmol/L Low 3.3-5.1 [facility] Comment on above: Performed By: #### L 500.2500, L503.7505, L100.0100 ####[facility] [address] [place], [address] Sodium [Moles/Vol] 133 mmol/L Normal 133-145 [facility] Comment on above: Performed By: #### L 500.2500, L503.7505, L100.0100 ####[facility] [address] [place], [address] Urea nitrogen [Mass/Vol] 88 mg/dL High 4-19 [facility] Comment on above: Performed By: #### L 500.2500, L503.7505, L100.0100 ####[facility] [address] [place], [address] Basophil percentageOrdered B y: Vincent Flores on 02-21-2025 Basophils/100 WBC (Bld) 0.8 % 0-1 [facility] Blood manual differential co mment interpretation (narrative result)Ordered By: Vincent Flores on 02-21-2025 Manual differential comment Cristhian (Bld) [Interp] SCANNED [facility] Blood polychromasia detectio n by light microscopyOrdered By: Vincent Flores on 02-21-2025 Polychromasia LM Ql (Bld) 1+ [facility] CBC W/Diff, Automatedon 02-03 HYPOCHROMASIA 1+ Normal [facility] Comment on above: Performed By: #### L 500.2500, L503.7505, L100.0100 ####[facility] [address] [place], [address] Anisocytosis Ql (Bld) 2+ Normal [facility] Comment on above: Performed By: #### L 500.2500, L503.7505, L100.0100 ####[facility] [address] [place], [address] PLT EST ADEQUATE Normal ADEQ [facility] Comment on above: Performed By: #### L 500.2500, L503.7505, L100.0100 ####[facility] [address] [place], [address] POLYCHROMASIA 1+ Normal [facility] Comment on above: Performed By: #### L 500.2500, L503.7505, L100.0100 ####[facility] [address] [place], [address] SMEAR COMMENT SCANNED Normal [facility] Comment on above: Performed By: #### L 500.7790, L503.7509, L100.0100 ####[facility] [address] [place], [address] Carbon dioxide, total [Moles /volume] in Central venous bloodOrdered By: Vincent Flores on 02-21-2025 CO2 [Moles/Vol] 26.5 mmol/L 21.0-32.0 [facility] Chloride assayOrdered By: Ishmael Flores on 02-21-2025 Chloride [Moles/Vol] 89 mmol/L Low 98-108 [facility] Eosinophil percentageOrdered By: Vincent Flores 02-21-2025 Eosinophils/100 WBC (Bld) 1.4 % 0-5 [facility] Erythrocyte distribution wid th ratioOrdered By: Vincent Flores on 02-21-2025 Erythrocyte distribution width (RBC) [Ratio] 23.6 % High 11.6-14.6 [facility] Erythrocyte distribution wid th standard deviationOrdered By: Vincent Flores on 02-21-2025 Erythrocyte distribution width (RBC) [Ratio] 73.1 fl High 35.1-43.9 [facility] Glomerular filtration rate ( GFR) estimation/1.73 sq m using serum, plasma, or whole bOrdered By: Vincent Flores on 02-21-2025 GFR/1.73 sq M.predicted among non-blacks MDRD (S/P/Bld) [Vol rate/Area] 25 mL/min/{1.73_m2} Low >60 [facility] Hematocrit Auto (Bld) [Volum e fraction]Ordered By: Vincent Flores on 02-21-2025 Hematocrit (Bld) [Volume fraction] 31.5 % Low 37-47 [facility] Hemoglobin measurementOrdere d By: Vincent Flores 02-21-2025 Hemoglobin (Bld) [Mass/Vol] 10.1 g/dL Low 12.0-15.0 [facility] Hypochromatic red blood cell detectionOrdered By: Vincent Flores on 02-21-2025 Hypochromia Ql (Bld) 1+ [facility] Immature granulocytes/100 WB C Auto (Bld)Ordered By: Vincent Flores on 02-21-2025 Immature granulocytes/100 WBC (Bld) 0.300 % 0.0-0.9 [facility] MCV (mean corpuscular volume ) determinationOrdered By: Vincent Flores on 02-21-2025 MCV (RBC) [Entitic vol] 86.3 fL 81-99 [facility] Mean corpuscular hemoglobin (MCH) determinationOrdered By: Vincent Flores on 02-21-2025 MCH (RBC) [Entitic mass] 27.7 pg 27.0-32.0 [facility] Monocyte percentageOrdered B y: Vincent Flores on 02-21-2025 Monocytes/100 WBC (Bld) 14.3 % High 0-10 [facility] Natriuretic peptide.B prohor daria N-Terminal [Mass/volume] in Serum or PlasmaOrdered By: Vincent Flores on 02-21-2025 Natriuretic peptide.B prohormone N-Terminal [Mass/Vol] 49897 pg/mL High <1800 [facility] Neutrophil percentageOrdered By: Vincent Flores on 02-21-2025 Neutrophils/100 WBC (Bld) 55.4 % 47-70 [facility] No Panel InformationOrdered By: Vincent Flores on 02-21-2025 2+ [facility] Platelet countOrdered By: Ishmael Flores on 02-21-2025 Platelets (Bld) [#/Vol] 170 10*3/uL 150-450 [facility] Platelet estimateOrdered By: Vincent Flores on 02-21-2025 Platelets LM Ql (Bld) ADEQUATE ADEQ [facility] Potassium measurement (mass/ volume)Ordered By: Vincent Flores on 02-21-2025 Potassium (Unsp spec) [Mass/Vol] 3.2 mmol/L Low 3.3-5.1 [facility] Pro- Brain NATRIURETIC PEPTI Drew 02-21-2025 Natriuretic peptide B (Bld) [Mass/Vol] 79805 pg/mL High <=1800 [facility] Comment on above: Result Comment: Hear t Failure Unlikely: < 300 pg/mLHeart Failure Likely< 50 Years: > 450 pg/mL50-75 Years: > 900 pg/mL>75 Years: > 1800 pg/mL Performed By: #### L 500.2500, L503.7505, L100.0100 ####[facility] [address] [place], [address] RBC Auto (Bld) [#/Vol]Ordere d By: Vincent Flores on 02-21-2025 RBC (Bld) [#/Vol] 3.65 10*6/uL Low 4.2-5.4 [facility] Serum creatinine measurement (mass/volume)Ordered By: Vincent Flores on 02-21-2025 Creatinine [Mass/Vol] 1.98 mg/dL High 0.70-1.20 [facility] Serum glucose measurement (m ass/volume)Ordered By: Vincent Flores on 02-21-2025 Glucose [Mass/Vol] 118 mg/dL High 70-99 [facility] Serum or plasma calcium bijan urement (mass/volume)Ordered By: Vincent Flores on 02-21-2025 Calcium [Mass/Vol] 9.6 mg/dL 7.6-11.0 [facility] Serum or plasma urea nitroge n measurement (mass/volume)Ordered By: Vincent Flores on 02-21-2025 Urea nitrogen [Mass/Vol] 88 mg/dL High 4-19 [facility] Sodium levelOrdered By: Vincent Flores on 02-21-2025 Sodium [Moles/Vol] 133 mmol/L 133-145 [facility] White blood cell (WBC) count Ordered By: Vincent Flores on 02-21-2025 WBC (Bld) [#/Vol] 7.1 10*3/uL 4.4-11.0 [facility] 12 Lead EKGon 02-16-2025 12 Lead EKG Normal [facility] Absolute lymphocyte countOrd ered By: Magdy Pang on 02-16-2025 Lymphocytes Auto (Unsp spec) [#/Vol] 1.41 10*3/uL 0.83-4.51 [facility] Absolute neutrophil countOrd ered By: Magdy Pang on 02-16-2025 Neutrophils (Bld) [#/Vol] 3.7 10*3/uL 2.0-7.7 [facility] Anion gap in Serum or Plasma Ordered By: Magdy Pang on 02-16-2025 Anion gap [Moles/Vol] 15 mmol/L - [facility] Automated lymphocyte count a s percentage of total leukocytesOrdered By: Magdy Pang on 02-16-2025 Lymphocytes/100 WBC Auto (Unsp spec) 23.2 % [facility] BUN/creatinine ratioOrdered By: Magdy Pang on 02-16-2025 Urea nitrogen/Creatinine [Mass ratio] 33.4 mg/mg High 04-23 [facility] Basic Metabolic Profile (BMP )on 02-16-2025 BUN/CRE 33.4 RATIO High 04-23 [facility] Comment on above: Performed By: #### L 500.2500, L503.7505, L100.0100, L501.4021 ####[facility] [address] [place], [address] Calcium [Mass/Vol] 9.5 mg/dL Normal 7.6-11.0 [facility] Comment on above: Performed By: #### L 500.2500, L503.7505, L100.0100, L501.4021 ####[facility] [address] [place], [address] Chloride [Moles/Vol] 92 mmol/L Low 98-108 [facility] Comment on above: Performed By: #### L 500.2500, L503.7505, L100.0100, L501.4021 ####[facility] [address] [place], [address] CO2 [Moles/Vol] 23.9 mmol/L Normal 21.0-32.0 [facility] Comment on above: Performed By: #### L 500.2500, L503.7505, L100.0100, L501.4021 ####[facility] [address] [place], [address] Creatinine [Mass/Vol] 2.04 mg/dL High 0.70-1.20 [facility] Comment on above: Performed By: #### L 500.2500, L503.7505, L100.0100, L501.4021 ####[facility] [address] [place], [address] ECRCL 20.45 ml/min Low 50-250 [facility] Comment on above: Performed By: #### L 500.2500, L503.7505, L100.0100, L501.4021 ####[facility] [address] [place], [address] GAP 15 Normal 5-15 [facility] Comment on above: Performed By: #### L 500.2500, L503.7505, L100.0100, L501.4021 ####[facility] [address] [place], [address] GFR/1.73 sq M.predicted among non-blacks MDRD (S/P/Bld) [Vol rate/Area] 24 mL/min/{1.73_m2} Low >60 [facility] Comment on above: Result Comment: mL/m in/1.73m2 CKD-EPI Creatinine Equation (2020) Performed By: #### L 500.2500, L503.7505, L100.0100, L501.4021 ####[facility] [address] [place], [address] Glucose [Mass/Vol] 129 mg/dL High 70-99 [facility] Comment on above: Performed By: #### L 500.2500, L503.7505, L100.0100, L501.4021 ####[facility] [address] [place], [address] Potassium [Moles/Vol] 3.9 mmol/L Normal 3.3-5.1 [facility] Comment on above: Performed By: #### L 500.2500, L503.7505, L100.0100, L501.4021 ####[facility] [address] [place], [address] Sodium [Moles/Vol] 131 mmol/L Low 133-145 [facility] Comment on above: Performed By: #### L 500.2500, L503.7505, L100.0100, L501.4021 ####[facility] [address] [place], [address] Urea nitrogen [Mass/Vol] 68 mg/dL High 4-19 [facility] Comment on above: Performed By: #### L 500.2500, L503.7505, L100.0100, L501.4021 ####[facility] [address] [place], [address] Basophil percentageOrdered B y: Magdy Pang on 02-16-2025 Basophils/100 WBC (Bld) 1.0 % 0-1 [facility] Blood manual differential co mment interpretation (narrative result)Ordered By: Magdy Pang on 02-16-2025 Manual differential comment Cristhian (Bld) [Interp] SCANNED [facility] Blood polychromasia detectio n by light microscopyOrdered By: Magdy Pang on 02-16-2025 Polychromasia LM Ql (Bld) 1+ [facility] CBC W/Diff, Automatedon 02-02 HYPOCHROMASIA 1+ Normal [facility] Comment on above: Performed By: #### L 500.2500, L503.7505, L100.0100, L501.4021 ####[facility] [address] [place], [address] POLYCHROMASIA 1+ Normal [facility] Comment on above: Performed By: #### L 500.2500, L503.7505, L100.0100, L501.4021 ####[facility] [address] [place], [address] Anisocytosis Ql (Bld) 2+ Normal [facility] Comment on above: Performed By: #### L 500.2500, L503.7505, L100.0100, L501.4021 ####[facility] [address] [place], [address] PLT EST SLT DEC Normal ADEQ [facility] Comment on above: Performed By: #### L 500.2500, L503.7505, L100.0100, L501.4021 ####[facility] [address] [place], [address] SMEAR COMMENT SCANNED Normal [facility] Comment on above: Performed By: #### L 500.2500, L503.7505, L100.0100, L501.4021 ####[facility] [address] [place], [address] Carbon dioxide, total [Moles /volume] in Central venous bloodOrdered By: Magdy Pang on 02-16-2025 CO2 [Moles/Vol] 23.9 mmol/L 21.0-32.0 [facility] Chest PA and Lateralon 02-16 Chest PA and Lateral Normal [facility] Chloride assayOrdered By: Rancho Pang on 02-16-2025 Chloride [Moles/Vol] 92 mmol/L Low 98-108 [facility] Emergency Department Summary on 02-16-2025 Emergency Department Summary Normal [facility] Eosinophil percentageOrdered By: Magdy Pang on 02-16-2025 Eosinophils/100 WBC (Bld) 1.2 % 0-5 [facility] Erythrocyte distribution wid th ratioOrdered By: Magdy Pang on 02-16-2025 Erythrocyte distribution width (RBC) [Ratio] 24.4 % High 11.6-14.6 [facility] Erythrocyte distribution wid th standard deviationOrdered By: Magdy Pang on 02-16-2025 Erythrocyte distribution width (RBC) [Ratio] 76.4 fl High 35.1-43.9 [facility] Glomerular filtration rate ( GFR) estimation/1.73 sq m using serum, plasma, or whole bOrdered By: Magdy Pang on 02-16-2025 GFR/1.73 sq M.predicted among non-blacks MDRD (S/P/Bld) [Vol rate/Area] 24 mL/min/{1.73_m2} Low >60 [facility] Comment on above: mL/min/1.73m2 CKD-EP I Creatinine Equation (2020) Hematocrit Auto (Bld) [Volum e fraction]Ordered By: Magdy Pang on 02-16-2025 Hematocrit (Bld) [Volume fraction] 32.2 % Low 37-47 [facility] Hemoglobin measurementOrdere d By: Magdy Pang on 02-16-2025 Hemoglobin (Bld) [Mass/Vol] 10.3 g/dL Low 12.0-15.0 [facility] Hypochromatic red blood cell detectionOrdered By: Magdy Pang on 02-16-2025 Hypochromia Ql (Bld) 1+ [facility] Immature granulocytes/100 WB C Auto (Bld)Ordered By: Magdy Pang on 02-16-2025 Immature granulocytes/100 WBC (Bld) 0.300 % 0.0-0.9 [facility] Comment on above: IG% - Immature Granu locytes (promyelocytes, myelocytes and metamyelocytes) > 1% indicates that a LEFT SHIFT is Present. L501.4021on 02-16-2025 Trop T High Sen 94 ng/L Invalid Interpretation Code <=14 [facility] Comment on above: Result Comment: Crit ical Result(s) Called at 1447: by: JOSH MARI. ??Results read back by same. Performed By: #### L 500.2500, L503.7505, L100.0100, L501.4021 ####[facility] [address] [place], [place], [id number] Laboratory - Hematology and Cell countsOrdered By: Magdy Pang on 02-16-2025 Anisocytosis Ql (Bld) 2+ [facility] MCV (mean corpuscular volume ) determinationOrdered By: Magdy Pang on 02-16-2025 MCV (RBC) [Entitic vol] 87.0 fL 81-99 [facility] Mean corpuscular hemoglobin (MCH) determinationOrdered By: Magdy Pang on 02-16-2025 MCH (RBC) [Entitic mass] 27.8 pg 27.0-32.0 [facility] Mean corpuscular hemoglobin concentration (MCHC) determinationOrdered By: Magdy Pang on 02-16-2025 MCHC (RBC) [Mass/Vol] 32.0 g/dL 32-36 [facility] Mean platelet volume determi nationOrdered By: Magdy Pang on 02-16-2025 Platelet mean volume (Bld) [Entitic vol] 9.5 fL 6.2-12.0 [facility] Monocyte percentageOrdered B y: Magdy Pang on 02-16-2025 Monocytes/100 WBC (Bld) 13.7 % High 0-10 [facility] Natriuretic peptide.B prohor daria N-Terminal [Mass/volume] in Serum or PlasmaOrdered By: Magdy Pang on 02-16-2025 Natriuretic peptide.B prohormone N-Terminal [Mass/Vol] 85005 pg/mL High <1800 [facility] Comment on above: Heart Failure Unlike ly: < 300 pg/mLHeart Failure Likely< 50 Years: > 450 pg/mL50-75 Years: > 900 pg/mL>75 Years: > 1800 pg/mL Neutrophil percentageOrdered By: Magdy Pang on 02-16-2025 Neutrophils/100 WBC (Bld) 60.6 % 47-70 [facility] No Panel InformationOrdered By: Magdy Pang on 02-16-2025 2+ [facility] Nucleated red blood cell per centageOrdered By: Magdy Pang on 02-16-2025 Nucleated RBC/100 WBC (Bld) [Ratio] 0 % 0-5 [facility] Platelet countOrdered By: Rancho Pang on 02-16-2025 Platelets (Bld) [#/Vol] 139 10*3/uL Low 150-450 [facility] Platelet estimateOrdered By: Magdy Pang on 02-16-2025 Platelets LM Ql (Bld) SLT DEC ADEQ [facility] Potassium measurement (mass/ volume)Ordered By: Magdy Pang on 02-16-2025 Potassium (Unsp spec) [Mass/Vol] 3.9 mmol/L 3.3-5.1 [facility] Pro- Brain NATRIURETIC PEPTI Drew 02-16-2025 Natriuretic peptide B (Bld) [Mass/Vol] 99144 pg/mL High <=1800 [facility] Comment on above: Result Comment: Hear t Failure Unlikely: < 300 pg/mLHeart Failure Likely< 50 Years: > 450 pg/mL50-75 Years: > 900 pg/mL>75 Years: > 1800 pg/mL Performed By: #### L 500.2500, L503.7505, L100.0100, L501.4021 ####[facility] [address] [place], [address] RBC Auto (Bld) [#/Vol]Ordere d By: Magdy Pang on 02-16-2025 RBC (Bld) [#/Vol] 3.70 10*6/uL Low 4.2-5.4 [facility] Serum creatinine measurement (mass/volume)Ordered By: Magdy Pang on 02-16-2025 Creatinine [Mass/Vol] 2.04 mg/dL High 0.70-1.20 [facility] Serum glucose measurement (m ass/volume)Ordered By: Magdy Pang on 02-16-2025 Glucose [Mass/Vol] 129 mg/dL High 70-99 [facility] Serum or plasma calcium bijan urement (mass/volume)Ordered By: Magdy Pang on 02-16-2025 Calcium [Mass/Vol] 9.5 mg/dL 7.6-11.0 [facility] Serum or plasma urea nitroge n measurement (mass/volume)Ordered By: Magdy Pang on 02-16-2025 Urea nitrogen [Mass/Vol] 68 mg/dL High 4-19 [facility] Sodium levelOrdered By: Magdy Pang on 02-16-2025 Sodium [Moles/Vol] 131 mmol/L Low 133-145 [facility] Troponin T HS 2 HRon 025 Trop T High Sen 88 ng/L Invalid Interpretation Code <=14 [facility] Comment on above: Result Comment: Crit ical Result(s) Called at 1627: by: JOSH TREJO. ??Results read back by same. Performed By: #### L 499.0042 ####[facility] [address] [place], [address] Troponin T HS 4 HRon 025 Trop T High Sen Normal <=14 [facility] Comment on above: Result Comment: JENARO ENT DISCHARGED Performed By: #### L 499.0043 ####[facility] [address] [place], [address] Troponin T.cardiac [Mass/vol ume] in Serum or Plasma by High sensitivity methodOrdered By: Magdy aPng on 02-16-2025 Troponin T.cardiac High sensitivity method [Mass/Vol] 88 ng/L Critically high <14 [facility] Comment on above: Critical Result(s) C alled at 1627: by: JOSH WORKMAN TO MARTA. Results read back by same. Troponin T.cardiac High sensitivity method [Mass/Vol] 94 ng/L Critically high <14 [facility] Comment on above: Delta: 71 on 5-1300Critical Result(s) Called at 1447: by: JOSH WORKMAN TO LIN. Results read back by same. White blood cell (WBC) count Ordered By: Magdy Pang on 02-16-2025 WBC (Bld) [#/Vol] 6.1 10*3/uL 4.4-11.0 [facility] CRP, High Sensitivity [id number] on 02-15-2025 CRP, HIGH SENS 41.42 mg/L High 0.00-3.00 [facility] Comment on above: Result Comment: Resu lts confirmed ondilution. Relative Risk for Future Cardiovascular Event Low <1.00 Average 1.00 - 3.00 High >3.00Performed at: - [facility] [id number] Director: Chuy Rizvi PhD, Phone: [phone] Performed By: #### L 101.9900, L501.9520, L501.7300, L100.0100, L501.7400, L500.4050, L501.5500, L3100.9170 ####[facility] [address] [place], [address] Absolute lymphocyte countOrd ered By: Vincent Flores on 02-13-2025 Lymphocytes Auto (Unsp spec) [#/Vol] 1.58 10*3/uL 0.83-4.51 [facility] Absolute neutrophil countOrd ered By: Vincent Flores on 02-13-2025 Neutrophils (Bld) [#/Vol] 5.1 10*3/uL 2.0-7.7 [facility] Anion gap in Serum or Plasma Ordered By: Vincent Flores on 02-13-2025 Anion gap [Moles/Vol] 17 mmol/L High 5-15 [facility] Automated lymphocyte count a s percentage of total leukocytesOrdered By: Vincent Flores on 02-13-2025 Lymphocytes/100 WBC Auto (Unsp spec) 20.6 % 19-41 [facility] BUN/creatinine ratioOrdered By: Vincent Flores on 02-13-2025 Urea nitrogen/Creatinine [Mass ratio] 27.4 mg/mg High 10-20 [facility] Basophil percentageOrdered B y: Vincent Flores on 02-13-2025 Basophils/100 WBC (Bld) 0.7 % 0-1 [facility] [facility] Bilirubin, totalOrdered By: Vincent Flores on 02-13-2025 Bilirubin [Mass/Vol] 1.18 mg/dL 0.00-1.30 [facility] Blood manual differential co mment interpretation (narrative result)Ordered By: Vincent Flores on 02-13-2025 Manual differential comment Cristhian (Bld) [Interp] SCANNED [facility] Blood polychromasia detectio n by light microscopyOrdered By: Vincent Flores on 02-13-2025 Polychromasia LM Ql (Bld) 1+ [facility] C-reactive protein measureme nt by high sensitivity methodOrdered By: Vincent Flores on 02-13-2025 C-reactive protein measurement by high sensitivity method 41.42 mg/L High 0.00-3.00 [facility] Comment on above: Results confirmed on dilution. Relative Risk for Future Cardiovascular Event Low <1.00 Average 1.00 - 3.00 High >3.00Performed at: [facility] [id number] Director: Chuy Rizvi PhD, Phone: [phone] CBC W/Diff, Automatedon 02-02 HYPOCHROMASIA 2+ Normal [facility] Comment on above: Performed By: #### L 101.9900, L501.9520, L501.7300, L100.0100, L501.7400, L500.4050, L501.5500, L3100.7870 ####[facility] [address] [place], [address] Anisocytosis Ql (Bld) 2+ Normal [facility] Comment on above: Performed By: #### L 101.9900, L501.9520, L501.7300, L100.0100, L501.7400, L500.4050, L501.5500, L3100.7870 ####[facility] [address] [place], [address] POLYCHROMASIA 1+ Normal [facility] Comment on above: Performed By: #### L 101.9900, L501.9520, L501.7300, L100.0100, L501.7400, L500.4050, L501.5500, L3100.7870 ####[facility] [address] [place], [address] PLT EST ADEQUATE Normal ADEQ [facility] Comment on above: Performed By: #### L 101.9900, L501.9520, L501.7300, L100.0100, L501.7400, L500.4050, L501.5500, L3100.7870 ####[facility] [address] [place], [address] SMEAR COMMENT SCANNED Normal [facility] Comment on above: Performed By: #### L 101.9900, L501.9520, L501.7300, L100.0100, L501.7400, L500.4050, L501.5500, L3100.7870 ####[facility] [address] [place], [address] Carbon dioxide, total [Moles /volume] in Central venous bloodOrdered By: Vincent Flores on 02-13-2025 CO2 [Moles/Vol] 24.2 mmol/L 21.0-32.0 [facility] Chloride assayOrdered By: Ishmael Flores on 02-13-2025 Chloride [Moles/Vol] 91 mmol/L Low 98-108 [facility] Comprehensive Metabolic Prof ilon 02-13-2025 Albumin [Mass/Vol] 4.1 g/dL Normal 3.4-4.8 [facility] Comment on above: Performed By: #### L 101.9900, L501.9520, L501.7300, L100.0100, L501.7400, L500.4050, L501.5500, L3100.7870 ####[facility] [address] [place], [address] Albumin/Globulin [Mass ratio] 1.2 {ratio} Normal 0.9-2.4 [facility] Comment on above: Performed By: #### L 101.9900, L501.9520, L501.7300, L100.0100, L501.7400, L500.4050, L501.5500, L3100.7870 ####[facility] [address] [place], [place], [id number] ALK PHOS 109 U/L High 35-104 [facility] Comment on above: Performed By: #### L 101.9900, L501.9520, L501.7300, L100.0100, L501.7400, L500.4050, L501.5500, L3100.7870 ####[facility] [address] [place], [address] ALT [Catalytic activity/Vol] 11 U/L Normal <=34 [facility] Comment on above: Performed By: #### L 101.9900, L501.9520, L501.7300, L100.0100, L501.7400, L500.4050, L501.5500, L3100.7870 ####[facility] [address] [place], [address] AST [Catalytic activity/Vol] 26 U/L Normal <=31 [facility] Comment on above: Performed By: #### L 101.9900, L501.9520, L501.7300, L100.0100, L501.7400, L500.4050, L501.5500, L3100.7870 ####[facility] [address] [place], [address] Bilirubin [Mass/Vol] 1.18 mg/dL Normal 0.00-1.30 [facility] Comment on above: Performed By: #### L 101.9900, L501.9520, L501.7300, L100.0100, L501.7400, L500.4050, L501.5500, L3100.7870 ####[facility] [address] [place], [address] BUN/CRE 27.4 RATIO High 10-20 [facility] Comment on above: Performed By: #### L 101.9900, L501.9520, L501.7300, L100.0100, L501.7400, L500.4050, L501.5500, L3100.7870 ####[facility] [address] [place], [address] Calcium [Mass/Vol] 9.7 mg/dL Normal 7.6-11.0 [facility] Comment on above: Performed By: #### L 101.9900, L501.9520, L501.7300, L100.0100, L501.7400, L500.4050, L501.5500, L3100.7870 ####[facility] [address] [place], [address] Chloride [Moles/Vol] 91 mmol/L Low 98-108 [facility] Comment on above: Performed By: #### L 101.9900, L501.9520, L501.7300, L100.0100, L501.7400, L500.4050, L501.5500, L3100.7870 ####[facility] [address] [place], [place], [id number] CO2 [Moles/Vol] 24.2 mmol/L Normal 21.0-32.0 [facility] Comment on above: Performed By: #### L 101.9900, L501.9520, L501.7300, L100.0100, L501.7400, L500.4050, L501.5500, L3100.7870 ####[facility] [address] [place], [place], [id number] Creatinine [Mass/Vol] 2.25 mg/dL High 0.70-1.20 [facility] Comment on above: Performed By: #### L 101.9900, L501.9520, L501.7300, L100.0100, L501.7400, L500.4050, L501.5500, L3100.7870 ####[facility] [address] [place], [place], [id number] GAP 17 High 5-15 [facility] Comment on above: Performed By: #### L 101.9900, L501.9520, L501.7300, L100.0100, L501.7400, L500.4050, L501.5500, L3100.7870 ####[facility] [address] [place], [place], [id number] GFR/1.73 sq M.predicted among non-blacks MDRD (S/P/Bld) [Vol rate/Area] 22 mL/min/{1.73_m2} Low >60 [facility] Comment on above: Result Comment: mL/m in/1.73m2 CKD-EPI Creatinine Equation (2020) Performed By: #### L 101.9900, L501.9520, L501.7300, L100.0100, L501.7400, L500.4050, L501.5500, L3100.7870 ####[facility] [address] [place], [address] Globulin (S) [Mass/Vol] 3.4 g/dL Normal 2.2-4.2 [facility] Comment on above: Performed By: #### L 101.9900, L501.9520, L501.7300, L100.0100, L501.7400, L500.4050, L501.5500, L3100.7870 ####[facility] [address] [place], [address] Glucose [Mass/Vol] 90 mg/dL Normal 70-99 [facility] Comment on above: Performed By: #### L 101.9900, L501.9520, L501.7300, L100.0100, L501.7400, L500.4050, L501.5500, L3100.7870 ####[facility] [address] [place], [address] Potassium [Moles/Vol] 3.5 mmol/L Normal 3.3-5.1 [facility] Comment on above: Performed By: #### L 101.9900, L501.9520, L501.7300, L100.0100, L501.7400, L500.4050, L501.5500, L3100.7870 ####[facility] [address] [place], [address] Sodium [Moles/Vol] 132 mmol/L Low 133-145 [facility] Comment on above: Performed By: #### L 101.9900, L501.9520, L501.7300, L100.0100, L501.7400, L500.4050, L501.5500, L3100.7870 ####[facility] [address] [place], [address] T PROT 7.4 g/dL Normal 5.9-8.4 [facility] Comment on above: Performed By: #### L 101.9900, L501.9520, L501.7300, L100.0100, L501.7400, L500.4050, L501.5500, L3100.7870 ####[facility] [address] [place], [place], [id number] Urea nitrogen [Mass/Vol] 62 mg/dL High 4-19 [facility] Comment on above: Performed By: #### L 101.9900, L501.9520, L501.7300, L100.0100, L501.7400, L500.4050, L501.5500, L3100.7870 ####[facility] [address] [place], [address] Eosinophil percentageOrdered By: Vincent Flores on 02-13-2025 Eosinophils/100 WBC (Bld) 1.4 % 0-5 [facility] Erythrocyte Sed Rateon 02-13 SED RATE 25 mm/hr Normal 0-30 [facility] Comment on above: Performed By: #### L 101.9900, L501.9520, L501.7300, L100.0100, L501.7400, L500.4050, L501.5500, L3100.7870 ####[facility] [address] [place], [address] Erythrocyte distribution wid th ratioOrdered By: Vincent Flores on 02-13-2025 Erythrocyte distribution width (RBC) [Ratio] 24.1 % High 11.6-14.6 [facility] Erythrocyte distribution wid th standard deviationOrdered By: Vincent Flores on 02-13-2025 Erythrocyte distribution width (RBC) [Ratio] 76.2 fl High 35.1-43.9 [facility] Erythrocyte sedimentation ra teOrdered By: Vincent Flores on 02-13-2025 ESR (Bld) [Velocity] 25 mm/h 0-30 [facility] Glomerular filtration rate ( GFR) estimation/1.73 sq m using serum, plasma, or whole bOrdered By: Vincent Flores on 02-13-2025 GFR/1.73 sq M.predicted among non-blacks MDRD (S/P/Bld) [Vol rate/Area] 22 mL/min/{1.73_m2} Low >60 [facility] Comment on above: mL/min/1.73m2 CKD-EP I Creatinine Equation (2020) Hematocrit Auto (Bld) [Volum e fraction]Ordered By: Vincent Flores 02-13-2025 Hematocrit (Bld) [Volume fraction] 31.1 % Low 37-47 [facility] Hemoglobin measurementOrdere d By: Vincent Flores 02-13-2025 Hemoglobin (Bld) [Mass/Vol] 9.8 g/dL Low 12.0-15.0 [facility] Hypochromatic red blood cell detectionOrdered By: Vincent Flores 02-13-2025 Hypochromia Ql (Bld) 2+ [facility] Immature granulocytes/100 WB C Auto (Bld)Ordered By: Vincent Flores 02-13-2025 Immature granulocytes/100 WBC (Bld) 0.300 % 0.0-0.9 [facility] Comment on above: IG% - Immature Granu locytes (promyelocytes, myelocytes and metamyelocytes) > 1% indicates that a LEFT SHIFT is Present. Laboratory - Chemistry and C hemistry - challengeOrdered By: Vincent Flores 02-13-2025 AST [Catalytic activity/Vol] 26 U/L <32 [facility] Laboratory - Hematology and Cell countsOrdered By: Vincent Flores 02-13-2025 Anisocytosis Ql (Bld) 2+ [facility] MCV (mean corpuscular volume ) determinationOrdered By: Vincent Flores 02-13-2025 MCV (RBC) [Entitic vol] 87.6 fL 81-99 [facility] Mean corpuscular hemoglobin (MCH) determinationOrdered By: Vincent Flores 02-13-2025 MCH (RBC) [Entitic mass] 27.6 pg 27.0-32.0 [facility] Mean corpuscular hemoglobin concentration (MCHC) determinationOrdered By: Vincent Flores 02-13-2025 MCHC (RBC) [Mass/Vol] 31.5 g/dL Low 32-36 [facility] Mean platelet volume determi nationOrdered By: Vincent Flores on 02-13-2025 Platelet mean volume (Bld) [Entitic vol] 10.1 fL 6.2-12.0 [facility] Monocyte percentageOrdered B y: Vincent Flores on 02-13-2025 Monocytes/100 WBC (Bld) 11.1 % High 0-10 [facility] Neutrophil percentageOrdered By: Vincent Flores on 02-13-2025 Neutrophils/100 WBC (Bld) 65.9 % 47-70 [facility] No Panel InformationOrdered By: Vincent Mark on 02-13-2025 2+ [facility] 26 U/L <32 [facility] Nucleated red blood cell per centageOrdered By: Vincent Mark on 02-13-2025 Nucleated RBC/100 WBC (Bld) [Ratio] 0 % 0-5 [facility] Osmolality urOrdered By: Vincent Flores on 02-13-2025 Osmolality (U) [Osmolality] 315 mOsm/KG >50 [facility] Comment on above: Normal Urine Referen ce Ranges Random: 50 - 1200 mOsm/kg H20 depending on fluid intake Random: >850 mOsm/kg after 12 hour fluid restriction 24 hour: ~300 - 900 mOsm/kg H2O Osmolality, Serumon 02-14-20 25 OSMOLALITY,SER 295 mOsm/KG Normal 280-301 [facility] Comment on above: Performed By: #### L 101.9900, L501.9520, L501.7300, L100.0100, L501.7400, L500.4050, L501.5500, L3100.7870 ####[facility] [address] [facility] [place], [place], [id number] Osmolality, Urineon 02-14-20 25 OSMOLALITY,UR 315 mOsm/KG Normal [facility] Comment on above: Result Comment: Norm al Urine Reference Ranges Random: 50 - 1200 mOsm/kg H20 depending on fluid intake Random: >850 mOsm/kg after 12 hour fluid restriction 24 hour: 300 - 900 mOsm/kg H2O Performed By: #### L 101.9900, L501.9520, L501.7300, L100.0100, L501.7400, L500.4050, L501.5500, L3100.7870 ####[facility] [address] [place], [address] Platelet countOrdered By: sIhmael Flores on 02-13-2025 Platelets (Bld) [#/Vol] 163 10*3/uL 150-450 [facility] Platelet estimateOrdered By: Vincent Flores on 02-13-2025 Platelets LM Ql (Bld) ADEQUATE ADEQ [facility] Potassium measurement (mass/ volume)Ordered By: Vincent Flores on 02-13-2025 Potassium (Unsp spec) [Mass/Vol] 3.5 mmol/L 3.3-5.1 [facility] RBC Auto (Bld) [#/Vol]Ordere d By: Vincent Flores on 02-13-2025 RBC (Bld) [#/Vol] 3.55 10*6/uL Low 4.2-5.4 [facility] Serum creatinine measurement (mass/volume)Ordered By: Vincent Flores on 02-13-2025 Creatinine [Mass/Vol] 2.25 mg/dL High 0.70-1.20 [facility] Serum globulin measurementOr dered By: Vincent Flores 02-13-2025 Globulin (S) [Mass/Vol] 3.4 g/dL 2.2-4.2 [facility] Serum glucose measurement (m ass/volume)Ordered By: Vincent Flores 02-13-2025 Glucose [Mass/Vol] 90 mg/dL 70-99 [facility] Serum or plasma alanine craven otransferase (ALT) measurementOrdered By: Vincent Flores 02-13-2025 ALT [Catalytic activity/Vol] 11 U/L <35 [facility] Serum or plasma albumin bijan urement (mass/volume)Ordered By: Vincent Flores on 02-13-2025 Albumin [Mass/Vol] 4.1 g/dL 3.4-4.8 [facility] Serum or plasma albumin/glob ulin mass ratioOrdered By: Vincent Flores 02-13-2025 Albumin/Globulin [Mass ratio] 1.2 {ratio} 0.9-2.4 [facility] Serum or plasma alkaline da sphatase measurementOrdered By: Vincent Mark on 02-13-2025 ALP [Catalytic activity/Vol] 109 U/L High 35-104 [facility] Serum or plasma calcium bijan urement (mass/volume)Ordered By: Vincent Flores on 02-13-2025 Calcium [Mass/Vol] 9.7 mg/dL 7.6-11.0 [facility] Serum or plasma urea nitroge n measurement (mass/volume)Ordered By: Vincent Flores on 02-13-2025 Urea nitrogen [Mass/Vol] 62 mg/dL High 4-19 [facility] Sodium levelOrdered By: Vincent Mark on 02-13-2025 Sodium [Moles/Vol] 132 mmol/L Low 133-145 [facility] TSH DL <= 0.005 mIU/L QnOrde red By: Vincent Flores on 02-13-2025 TSH Qn 3.180 uIU/mL 0.300-4.200 [facility] Thyroid Stim Hormone (TSH)on 02-13-2025 TSH 3.180 uIU/mL Normal 0.300-4.200 [facility] Comment on above: Performed By: #### L 101.9900, L501.9520, L501.7300, L100.0100, L501.7400, L500.4050, L501.5500, L3100.7870 ####[facility] [address] [place], [address] Total proteinOrdered By: Vincent Flores on 02-13-2025 Protein [Mass/Vol] 7.4 g/dL 5.9-8.4 [facility] Urine Sodiumon 02-13-2025 Sodium (U) [Moles/Vol] 57 mmol/L Normal Not Establ. [facility] Comment on above: Performed By: #### L 101.9900, L501.9520, L501.7300, L100.0100, L501.7400, L500.4050, L501.5500, L3100.7870 ####[facility] [address] [place], [address] Urine sodium measurement (mo les/volume)Ordered By: Vincent Flores on 02-13-2025 Sodium (U) [Moles/Vol] 57 mmol/L Not Establ. [facility] White blood cell (WBC) count Ordered By: Vincent Flores on 02-13-2025 WBC (Bld) [#/Vol] 7.7 10*3/uL 4.4-11.0 [facility] Pacemaker Checkon 02-08-2025 Pacemaker Check Normal [facility] Anion gap in Serum or Plasma Ordered By: Juan Diego Huynh on 02-05-2025 Anion gap [Moles/Vol] 17 mmol/L High 5-15 [facility] BUN/creatinine ratioOrdered By: Juan Diego Huynh on 02-05-2025 Urea nitrogen/Creatinine [Mass ratio] 33.5 mg/mg High 10-20 [facility] Basic Metabolic Profile (BMP )on 02-05-2025 BUN/CRE 33.5 RATIO High 10-20 [facility] Comment on above: Performed By: #### L 503.7505, L500.2500 ####[facility] [address] [place], [address] Calcium [Mass/Vol] 9.5 mg/dL Normal 7.6-11.0 [facility] Comment on above: Performed By: #### L 503.7505, L500.2500 ####[facility] [address] [place], [address] Chloride [Moles/Vol] 90 mmol/L Low 98-108 [facility] Comment on above: Performed By: #### L 503.7505, L500.2500 ####[facility] [address] [place], [address] CO2 [Moles/Vol] 22.7 mmol/L Normal 21.0-32.0 [facility] Comment on above: Performed By: #### L 503.7505, L500.2500 ####[facility] [address] [place], [address] Creatinine [Mass/Vol] 2.11 mg/dL High 0.70-1.20 [facility] Comment on above: Performed By: #### L 503.7505, L500.2500 ####[facility] [address] [place], [address] GAP 17 High 5-15 [facility] Comment on above: Performed By: #### L 503.7505, L500.2500 ####[facility] [address] [place], [address] GFR/1.73 sq M.predicted among non-blacks MDRD (S/P/Bld) [Vol rate/Area] 23 mL/min/{1.73_m2} Low >60 [facility] Comment on above: Result Comment: mL/m in/1.73m2 CKD-EPI Creatinine Equation (2020) Performed By: #### L 503.7505, L500.2500 ####[facility] [address] [place], [address] Glucose [Mass/Vol] 159 mg/dL High 70-99 [facility] Comment on above: Performed By: #### L 503.7505, L500.2500 ####[facility] [address] [place], [address] Potassium [Moles/Vol] 4.2 mmol/L Normal 3.3-5.1 [facility] Comment on above: Performed By: #### L 503.7505, L500.2500 ####[facility] [address] [place], [address] Sodium [Moles/Vol] 130 mmol/L Low 133-145 [facility] Comment on above: Performed By: #### L 503.7505, L500.2500 ####[facility] [address] [place], [address] Urea nitrogen [Mass/Vol] 71 mg/dL High 4-19 [facility] Comment on above: Performed By: #### L 503.7505, L500.2500 ####[facility] [address] [place], [address] Carbon dioxide, total [Moles /volume] in Central venous bloodOrdered By: Juan Diego Huynh on 02-05-2025 CO2 [Moles/Vol] 22.7 mmol/L 21.0-32.0 [facility] Cardiology Visit Reporton Cardiology Visit Report Normal [facility] Chloride assayOrdered By: Jennifer Huynh on 02-05-2025 Chloride [Moles/Vol] 90 mmol/L Low 98-108 [facility] Glomerular filtration rate ( GFR) estimation/1.73 sq m using serum, plasma, or whole bOrdered By: Juan Diego Huynh on 02-05-2025 GFR/1.73 sq M.predicted among non-blacks MDRD (S/P/Bld) [Vol rate/Area] 23 mL/min/{1.73_m2} Low >60 [facility] Comment on above: mL/min/1.73m2 CKD-EP I Creatinine Equation (2020) Natriuretic peptide.B prohor daria N-Terminal [Mass/volume] in Serum or PlasmaOrdered By: Juan Diego Huynh on 02-05-2025 Natriuretic peptide.B prohormone N-Terminal [Mass/Vol] 9503 pg/mL High <1800 [facility] Comment on above: Heart Failure Unlike ly: < 300 pg/mLHeart Failure Likely< 50 Years: > 450 pg/mL50-75 Years: > 900 pg/mL>75 Years: > 1800 pg/mL Potassium measurement (mass/ volume)Ordered By: Juan Diego Huynh on 02-05-2025 Potassium (Unsp spec) [Mass/Vol] 4.2 mmol/L 3.3-5.1 [facility] Pro- Brain NATRIURETIC PEPTI Drew 02-05-2025 Natriuretic peptide B (Bld) [Mass/Vol] 9503 pg/mL High <=1800 [facility] Comment on above: Result Comment: Hear t Failure Unlikely: < 300 pg/mLHeart Failure Likely< 50 Years: > 450 pg/mL50-75 Years: > 900 pg/mL>75 Years: > 1800 pg/mL Performed By: #### L 503.7505, L500.2500 ####[facility] [address] [place], [address] Serum creatinine measurement (mass/volume)Ordered By: Juan Diego Huynh on 02-05-2025 Creatinine [Mass/Vol] 2.11 mg/dL High 0.70-1.20 [facility] Serum glucose measurement (m ass/volume)Ordered By: Juan Diego Huynh on 02-05-2025 Glucose [Mass/Vol] 159 mg/dL High 70-99 [facility] Serum or plasma calcium bijan urement (mass/volume)Ordered By: Juan Diego Huynh on 02-05-2025 Calcium [Mass/Vol] 9.5 mg/dL 7.6-11.0 [facility] Serum or plasma urea nitroge n measurement (mass/volume)Ordered By: Juan Diego Huynh on 02-05-2025 Urea nitrogen [Mass/Vol] 71 mg/dL High 4-19 [facility] Sodium levelOrdered By: Phi Huynh on 02-05-2025 Sodium [Moles/Vol] 130 mmol/L Low 133-145 [facility] Absolute lymphocyte countOrd ered By: Vincent Flores on 02-01-2025 Lymphocytes Auto (Unsp spec) [#/Vol] 1.38 10*3/uL 0.83-4.51 [facility] Absolute neutrophil countOrd ered By: Vincent Flores on 02-01-2025 Neutrophils (Bld) [#/Vol] 5.0 10*3/uL 2.0-7.7 [facility] Anion gap in Serum or Plasma Ordered By: Vincent Flores on 02-01-2025 Anion gap [Moles/Vol] 16 mmol/L High 5-15 [facility] Automated lymphocyte count a s percentage of total leukocytesOrdered By: Vincent Flores on 02-01-2025 Lymphocytes/100 WBC Auto (Unsp spec) 18.6 % Low 19-41 [facility] BUN/creatinine ratioOrdered By: Vincent Flores on 02-01-2025 Urea nitrogen/Creatinine [Mass ratio] 30.6 mg/mg High 10-20 [facility] Basophil percentageOrdered B y: Vincent Flores on 02-01-2025 Basophils/100 WBC (Bld) 0.7 % 0-1 [facility] Bilirubin, totalOrdered By: Vincent Flores on 02-01-2025 Bilirubin [Mass/Vol] 0.99 mg/dL 0.00-1.30 [facility] CBC W/Diff, Automatedon 01-04 Absolute Lymph 1.38 X10 3/uL Normal 0.83-4.51 [facility] Comment on above: Performed By: #### L 500.4050, L506.1001, L501.9520, L100.0100 ####[facility] [address] [place], [address] Absolute Neut 5.0 X10 3/uL Normal 2.0-7.7 [facility] Comment on above: Performed By: #### L 500.4050, L506.1001, L501.9520, L100.0100 ####[facility] [address] [place], [address] Basophils/100 WBC (Bld) 0.7 % Normal 0-1 [facility] Comment on above: Performed By: #### L 500.4050, L506.1001, L501.9520, L100.0100 ####[facility] [address] [place], [address] Eosinophils/100 WBC (Bld) 1.6 % Normal 0-5 [facility] Comment on above: Performed By: #### L 500.4050, L506.1001, L501.9520, L100.0100 ####[facility] [address] [place], [address] Erythrocyte distribution width (RBC) [Ratio] 19.9 % High 11.6-14.6 [facility] Comment on above: Performed By: #### L 500.4050, L506.1001, L501.9520, L100.0100 ####[facility] [address] [place], [address] Hematocrit (Bld) [Volume fraction] 29.6 % Low 37-47 [facility] Comment on above: Performed By: #### L 500.4050, L506.1001, L501.9520, L100.0100 ####[facility] [address] [place], [address] Hemoglobin (Bld) [Mass/Vol] 9.5 g/dL Low 12.0-15.0 [facility] Comment on above: Performed By: #### L 500.4050, L506.1001, L501.9520, L100.0100 ####[facility] [address] [place], [address] IG% 0.700 Normal 0.0-0.9 [facility] Comment on above: Result Comment: IG% - Immature Granulocytes (promyelocytes, myelocytes andmetamyelocytes) > 1% indicates that a LEFT SHIFT is Present. Performed By: #### L 500.4050, L506.1001, L501.9520, L100.0100 ####[facility] [address] [place], [address] Lymphocytes/100 WBC (Bld) 18.6 % Low 19-41 [facility] Comment on above: Performed By: #### L 500.4050, L506.1001, L501.9520, L100.0100 ####[facility] [address] [place], [address] MCH (RBC) [Entitic mass] 27.1 pg Normal 27.0-32.0 [facility] Comment on above: Performed By: #### L 500.4050, L506.1001, L501.9520, L100.0100 ####[facility] [address] [place], [address] MCHC (RBC) [Mass/Vol] 32.1 g/dL Normal 32-36 [facility] Comment on above: Performed By: #### L 500.4050, L506.1001, L501.9520, L100.0100 ####[facility] [address] [place], [address] MCV (RBC) [Entitic vol] 84.6 fL Normal 81-99 [facility] Comment on above: Performed By: #### L 500.4050, L506.1001, L501.9520, L100.0100 ####[facility] [address] [place], [address] Monocytes/100 WBC (Bld) 11.2 % High 0-10 [facility] Comment on above: Performed By: #### L 500.4050, L506.1001, L501.9520, L100.0100 ####[facility] [address] [place], [address] Neutrophils/100 WBC (Bld) 67.2 % Normal 47-70 [facility] Comment on above: Performed By: #### L 500.4050, L506.1001, L501.9520, L100.0100 ####[facility] [address] [place], [address] Nucleated RBC (Bld) [#/Vol] 0 10*3/uL Normal 0-5 [facility] Comment on above: Performed By: #### L 500.4050, L506.1001, L501.9520, L100.0100 ####[facility] [address] [place], [address] Platelet mean volume (Bld) [Entitic vol] 9.6 fL Normal 6.2-12.0 [facility] Comment on above: Performed By: #### L 500.4050, L506.1001, L501.9520, L100.0100 ####[facility] [address] [place], [address] Platelets (Bld) [#/Vol] 209 10*3/uL Normal 150-450 [facility] Comment on above: Performed By: #### L 500.4050, L506.1001, L501.9520, L100.0100 ####[facility] [address] [place], [address] RBC (Bld) [#/Vol] 3.50 10*6/uL Low 4.2-5.4 [facility] Comment on above: Performed By: #### L 500.4050, L506.1001, L501.9520, L100.0100 ####[facility] [address] [place], [address] RDW SD 61.5 fl High 35.1-43.9 [facility] Comment on above: Performed By: #### L 500.4050, L506.1001, L501.9520, L100.0100 ####[facility] [address] [place], [address] WBC (Bld) [#/Vol] 7.4 10*3/uL Normal 4.4-11.0 [facility] Comment on above: Performed By: #### L 500.4050, L506.1001, L501.9520, L100.0100 ####[facility] [address] [place], [address] Carbon dioxide, total [Moles /volume] in Central venous bloodOrdered By: Vincent Flores on 02-01-2025 CO2 [Moles/Vol] 25.1 mmol/L 21.0-32.0 [facility] Chloride assayOrdered By: Ishmael Flores on 02-01-2025 Chloride [Moles/Vol] 88 mmol/L Low 98-108 [facility] Comprehensive Metabolic Prof ilon 02-01-2025 Albumin [Mass/Vol] 4.2 g/dL Normal 3.4-4.8 [facility] Comment on above: Performed By: #### L 500.4050, L506.1001, L501.9520, L100.0100 ####[facility] [address] [place], [address] Albumin/Globulin [Mass ratio] 1.3 {ratio} Normal 0.9-2.4 [facility] Comment on above: Performed By: #### L 500.4050, L506.1001, L501.9520, L100.0100 ####[facility] [address] [place], [address] ALK PHOS 120 U/L High 35-104 [facility] Comment on above: Performed By: #### L 500.4050, L506.1001, L501.9520, L100.0100 ####[facility] [address] [place], [address] ALT [Catalytic activity/Vol] 11 U/L Normal <=34 [facility] Comment on above: Performed By: #### L 500.4050, L506.1001, L501.9520, L100.0100 ####[facility] [address] [place], [address] AST [Catalytic activity/Vol] 26 U/L Normal <=31 [facility] Comment on above: Performed By: #### L 500.4050, L506.1001, L501.9520, L100.0100 ####[facility] [address] [place], [address] Bilirubin [Mass/Vol] 0.99 mg/dL Normal 0.00-1.30 [facility] Comment on above: Performed By: #### L 500.4050, L506.1001, L501.9520, L100.0100 ####[facility] [address] [place], [address] BUN/CRE 30.6 RATIO High 10-20 [facility] Comment on above: Performed By: #### L 500.4050, L506.1001, L501.9520, L100.0100 ####[facility] [address] [place], [address] Calcium [Mass/Vol] 9.3 mg/dL Normal 7.6-11.0 [facility] Comment on above: Performed By: #### L 500.4050, L506.1001, L501.9520, L100.0100 ####[facility] [address] [place], [address] Chloride [Moles/Vol] 88 mmol/L Low 98-108 [facility] Comment on above: Performed By: #### L 500.4050, L506.1001, L501.9520, L100.0100 ####[facility] [address] [place], [address] CO2 [Moles/Vol] 25.1 mmol/L Normal 21.0-32.0 [facility] Comment on above: Performed By: #### L 500.4050, L506.1001, L501.9520, L100.0100 ####[facility] [address] [place], [address] Creatinine [Mass/Vol] 2.46 mg/dL High 0.70-1.20 [facility] Comment on above: Performed By: #### L 500.4050, L506.1001, L501.9520, L100.0100 ####[facility] [address] [place], [address] GAP 16 High 5-15 [facility] Comment on above: Performed By: #### L 500.4050, L506.1001, L501.9520, L100.0100 ####[facility] [address] [place], [address] GFR/1.73 sq M.predicted among non-blacks MDRD (S/P/Bld) [Vol rate/Area] 19 mL/min/{1.73_m2} Low >60 [facility] Comment on above: Result Comment: mL/m in/1.73m2 CKD-EPI Creatinine Equation (2020) Performed By: #### L 500.4050, L506.1001, L501.9520, L100.0100 ####[facility] [address] [place], [address] Globulin (S) [Mass/Vol] 3.2 g/dL Normal 2.2-4.2 [facility] Comment on above: Performed By: #### L 500.4050, L506.1001, L501.9520, L100.0100 ####[facility] [address] [place], [address] Glucose [Mass/Vol] 138 mg/dL High 70-99 [facility] Comment on above: Performed By: #### L 500.4050, L506.1001, L501.9520, L100.0100 ####[facility] [address] [place], [address] Potassium [Moles/Vol] 3.4 mmol/L Normal 3.3-5.1 [facility] Comment on above: Performed By: #### L 500.4050, L506.1001, L501.9520, L100.0100 ####[facility] [address] [place], [address] Sodium [Moles/Vol] 129 mmol/L Low 133-145 [facility] Comment on above: Performed By: #### L 500.4050, L506.1001, L501.9520, L100.0100 ####[facility] [address] [place], [address] T PROT 7.4 g/dL Normal 5.9-8.4 [facility] Comment on above: Performed By: #### L 500.4050, L506.1001, L501.9520, L100.0100 ####[facility] [address] [place], [address] Urea nitrogen [Mass/Vol] 75 mg/dL High 4-19 [facility] Comment on above: Performed By: #### L 500.4050, L506.1001, L501.9520, L100.0100 ####[facility] [address] [place], [address] Eosinophil percentageOrdered By: Vincent Flores on 02-01-2025 Eosinophils/100 WBC (Bld) 1.6 % 0-5 [facility] Erythrocyte distribution wid th ratioOrdered By: Vincent Flores on 02-01-2025 Erythrocyte distribution width (RBC) [Ratio] 19.9 % High 11.6-14.6 [facility] Erythrocyte distribution wid th standard deviationOrdered By: Vincent Flores on 02-01-2025 Erythrocyte distribution width (RBC) [Ratio] 61.5 fl High 35.1-43.9 [facility] Glomerular filtration rate ( GFR) estimation/1.73 sq m using serum, plasma, or whole bOrdered By: Vincent Flores on 02-01-2025 GFR/1.73 sq M.predicted among non-blacks MDRD (S/P/Bld) [Vol rate/Area] 19 mL/min/{1.73_m2} Low >60 [facility] Comment on above: mL/min/1.73m2 CKD-EP I Creatinine Equation (2020) Hematocrit Auto (Bld) [Volum e fraction]Ordered By: Vincent Flores on 02-01-2025 Hematocrit (Bld) [Volume fraction] 29.6 % Low 37-47 [facility] Hemoglobin measurementOrdere d By: Vincent Flores 02-01-2025 Hemoglobin (Bld) [Mass/Vol] 9.5 g/dL Low 12.0-15.0 [facility] Immature granulocytes/100 WB C Auto (Bld)Ordered By: Vincent Flores on 02-01-2025 Immature granulocytes/100 WBC (Bld) 0.700 % 0.0-0.9 [facility] Comment on above: IG% - Immature Granu locytes (promyelocytes, myelocytes and metamyelocytes) > 1% indicates that a LEFT SHIFT is Present. Laboratory - Chemistry and C hemistry - challengeOrdered By: Vincent Flores on 02-01-2025 AST [Catalytic activity/Vol] 26 U/L <32 [facility] MCV (mean corpuscular volume ) determinationOrdered By: Vincent Flores on 02-01-2025 MCV (RBC) [Entitic vol] 84.6 fL 81-99 [facility] Mean corpuscular hemoglobin (MCH) determinationOrdered By: Vincent Flores on 02-01-2025 MCH (RBC) [Entitic mass] 27.1 pg 27.0-32.0 [facility] Mean corpuscular hemoglobin concentration (MCHC) determinationOrdered By: Vincent Flores 02-01-2025 MCHC (RBC) [Mass/Vol] 32.1 g/dL 32-36 [facility] Mean platelet volume determi nationOrdered By: Vincent Flores on 02-01-2025 Platelet mean volume (Bld) [Entitic vol] 9.6 fL 6.2-12.0 [facility] Monocyte percentageOrdered B y: Vincent Flores on 02-01-2025 Monocytes/100 WBC (Bld) 11.2 % High 0-10 [facility] Neutrophil percentageOrdered By: Vincent Flores on 02-01-2025 Neutrophils/100 WBC (Bld) 67.2 % 47-70 [facility] No Panel InformationOrdered By: Vincent Flores on 02-01-2025 26 U/L <32 [facility] Nucleated red blood cell per centageOrdered By: Vincent Flores on 02-01-2025 Nucleated RBC/100 WBC (Bld) [Ratio] 0 % 0-5 [facility] Platelet countOrdered By: Ishmael Flores on 02-01-2025 Platelets (Bld) [#/Vol] 209 10*3/uL 150-450 [facility] Potassium measurement (mass/ volume)Ordered By: Vincent Flores on 02-01-2025 Potassium (Unsp spec) [Mass/Vol] 3.4 mmol/L 3.3-5.1 [facility] RBC Auto (Bld) [#/Vol]Ordere d By: Vincent Flores on 02-01-2025 RBC (Bld) [#/Vol] 3.50 10*6/uL Low 4.2-5.4 [facility] Serum creatinine measurement (mass/volume)Ordered By: Vincent Flores on 02-01-2025 Creatinine [Mass/Vol] 2.46 mg/dL High 0.70-1.20 [facility] Serum globulin measurementOr dered By: Vincent Flores 02-01-2025 Globulin (S) [Mass/Vol] 3.2 g/dL 2.2-4.2 [facility] Serum glucose measurement (m ass/volume)Ordered By: Vincent Flores 02-01-2025 Glucose [Mass/Vol] 138 mg/dL High 70-99 [facility] Serum or plasma alanine craven otransferase (ALT) measurementOrdered By: Vincent Flores 02-01-2025 ALT [Catalytic activity/Vol] 11 U/L <35 [facility] Serum or plasma albumin bijan urement (mass/volume)Ordered By: Vincent Flores 02-01-2025 Albumin [Mass/Vol] 4.2 g/dL 3.4-4.8 [facility] Serum or plasma albumin/glob ulin mass ratioOrdered By: Vincent Flores 02-01-2025 Albumin/Globulin [Mass ratio] 1.3 {ratio} 0.9-2.4 [facility] Serum or plasma alkaline da sphatase measurementOrdered By: Vincent Flores 02-01-2025 ALP [Catalytic activity/Vol] 120 U/L High 35-104 [facility] Serum or plasma calcium bijan urement (mass/volume)Ordered By: Vincent Flores 02-01-2025 Calcium [Mass/Vol] 9.3 mg/dL 7.6-11.0 [facility] Serum or plasma urea nitroge n measurement (mass/volume)Ordered By: Vincent Flores 02-01-2025 Urea nitrogen [Mass/Vol] 75 mg/dL High 4-19 [facility] Sodium levelOrdered By: Vincent Flores on 02-01-2025 Sodium [Moles/Vol] 129 mmol/L Low 133-145 [facility] TSH DL <= 0.005 mIU/L QnOrde red By: Vincent Flores on 02-01-2025 TSH Qn 4.710 uIU/mL High 0.300-4.200 [facility] Thyroid Stim Hormone (TSH)on 02-01-2025 TSH 4.710 uIU/mL High 0.300-4.200 [facility] Comment on above: Performed By: #### L 500.4050, L506.1001, L501.9520, L100.0100 ####[facility] [address] [place], [place], [address] Total proteinOrdered By: Vincent Flores on 02-01-2025 Protein [Mass/Vol] 7.4 g/dL 5.9-8.4 [facility] Vitamin D,25 Hydroxyon 02-01 Vitamin D 25-OH 36.3 ng/mL Normal 30-100 [facility] Comment on above: Result Comment: Haydee min D StatusDeficiency: <20 ng/mL (50nmol/L)Insufficiency: 20-30 ng/mL (50-75 nmol/L)Sufficiency: 30-100 ng/mL (75-250 nmol/L)Toxicity: >100 ng/mL (>250 nmol/L) Performed By: #### L 500.4050, L506.1001, L501.9520, L100.0100 ####[facility] [address] [place], [address] White blood cell (WBC) count Ordered By: Vincent Flores on 02-01-2025 WBC (Bld) [#/Vol] 7.4 10*3/uL 4.4-11.0 [facility] AST(SGOT)on 01-23-2025 AST [Catalytic activity/Vol] 24 U/L Normal <=31 [facility] Comment on above: Performed By: #### L 501.4100, L3890.6301, L501.4600, L100.0100, L501.9520, L001.0705, L501.2300, L501.4305, L501.4405, L500.4100, L506.1001 ####[facility] [address] [place], [place], [id number] Absolute lymphocyte countOrd ered By: Vincent Flores on 01-23-2025 Lymphocytes Auto (Unsp spec) [#/Vol] 1.55 10*3/uL 0.83-4.51 [facility] Absolute neutrophil countOrd ered By: Vincent Flores on 01-23-2025 Neutrophils (Bld) [#/Vol] 6.1 10*3/uL 2.0-7.7 [facility] Alanine Aminotransferas (SGP T)on 01-23-2025 ALT [Catalytic activity/Vol] 11 U/L Normal <=34 [facility] Comment on above: Performed By: #### L 501.4100, L3890.6301, L501.4600, L100.0100, L501.9520, L001.0705, L501.2300, L501.4305, L501.4405, L500.4100, L506.1001 ####[facility] [address] [place], [place], [id number] Alkaline Phosphataseon 01-23 ALK PHOS 126 U/L High 35-104 [facility] Comment on above: Performed By: #### L 501.4100, L3890.6301, L501.4600, L100.0100, L501.9520, L001.0705, L501.2300, L501.4305, L501.4405, L500.4100, L506.1001 ####[facility] [address] [facility] [address] [place], [place], [id number] Anion gap in Serum or Plasma Ordered By: Jeremy Mcgarry on 01-23-2025 Anion gap [Moles/Vol] 17 mmol/L High 5-15 [facility] Automated lymphocyte count a s percentage of total leukocytesOrdered By: Vincent Flores on 01-23-2025 Lymphocytes/100 WBC Auto (Unsp spec) 16.8 % Low 19-41 [facility] BUN/creatinine ratioOrdered By: Jeremy Mcgarry on 01-23-2025 Urea nitrogen/Creatinine [Mass ratio] 29.1 mg/mg High 10-20 [facility] Basophil percentageOrdered B y: Vincent Flores on 01-23-2025 Basophils/100 WBC (Bld) 0.8 % 0-1 [facility] Bilirubin, totalOrdered By: Vincent Flores on 01-23-2025 Bilirubin [Mass/Vol] 1.15 mg/dL 0.00-1.30 [facility] Blood manual differential co mment interpretation (narrative result)Ordered By: Vincent Flores on 01-23-2025 Manual differential comment Cristhian (Bld) [Interp] SCANNED [facility] Blood polychromasia detectio n by light microscopyOrdered By: Vincent Flores on 01-23-2025 Polychromasia LM Ql (Bld) 1+ [facility] CBC W/Diff, Automatedon 01-03 HYPOCHROMASIA 3+ Normal [facility] Comment on above: Performed By: #### L 501.4100, L3890.6301, L501.4600, L100.0100, L501.9520, L001.0705, L501.2300, L501.4305, L501.4405, L500.4100, L506.1001 ####[facility] [address] [place], [place], [id number] Anisocytosis Ql (Bld) 2+ Normal [facility] Comment on above: Performed By: #### L 501.4100, L3890.6301, L501.4600, L100.0100, L501.9520, L001.0705, L501.2300, L501.4305, L501.4405, L500.4100, L506.1001 ####[facility] [address] [place], [address] PLT EST ADEQUATE Normal ADEQ [facility] Comment on above: Performed By: #### L 501.4100, L3890.6301, L501.4600, L100.0100, L501.9520, L001.0705, L501.2300, L501.4305, L501.4405, L500.4100, L506.1001 ####[facility] [address] [place], [address] POLYCHROMASIA 1+ Normal [facility] Comment on above: Performed By: #### L 501.4100, L3890.6301, L501.4600, L100.0100, L501.9520, L001.0705, L501.2300, L501.4305, L501.4405, L500.4100, L506.1001 ####[facility] [address] [place], [address] SMEAR COMMENT SCANNED Normal [facility] Comment on above: Performed By: #### L 501.4100, L3890.6301, L501.4600, L100.0100, L501.9520, L001.0705, L501.2300, L501.4305, L501.4405, L500.4100, L506.1001 ####[facility] [address] [place], [address] CBC-Complete Blood Cnt No Di ffon 01-23-2025 SCAN INDICATED? YES- FLAGS NOTED Normal [facility] Comment on above: Result Comment: DR. FLORES ORDERED CBCD Performed By: #### L 501.0900, L501.5200, L500.3600, L100.0500 ####[facility] [address] [place], [place], [id number] Erythrocyte distribution width (RBC) [Ratio] 20.1 % High 11.6-14.6 [facility] Comment on above: Result Comment: DR. FLORES ORDERED CBCD Performed By: #### L 501.0900, L501.5200, L500.3600, L100.0500 ####[facility] [address] [place], [address] Hematocrit (Bld) [Volume fraction] 28.2 % Low 37-47 [facility] Comment on above: Result Comment: DR. FLORES ORDERED CBCD Performed By: #### L 501.0900, L501.5200, L500.3600, L100.0500 ####[facility] [address] [place], [address] Hemoglobin (Bld) [Mass/Vol] 9.0 g/dL Low 12.0-15.0 [facility] Comment on above: Result Comment: DR. FLORES ORDERED CBCD Performed By: #### L 501.0900, L501.5200, L500.3600, L100.0500 ####[facility] [address] [place], [address] MCH (RBC) [Entitic mass] 28.1 pg Normal 27.0-32.0 [facility] Comment on above: Result Comment: DR. FLORES ORDERED CBCD Performed By: #### L 501.0900, L501.5200, L500.3600, L100.0500 ####[facility] [address] [place], [address] MCHC (RBC) [Mass/Vol] 31.9 g/dL Low 32-36 [facility] Comment on above: Result Comment: DR. FLORES ORDERED CBCD Performed By: #### L 501.0900, L501.5200, L500.3600, L100.0500 ####[facility] [address] [place], [address] MCV (RBC) [Entitic vol] 88.1 fL Normal 81-99 [facility] Comment on above: Result Comment: DR. FLORES ORDERED CBCD Performed By: #### L 501.0900, L501.5200, L500.3600, L100.0500 ####[facility] [address] [place], [address] Platelet mean volume (Bld) [Entitic vol] 9.8 fL Normal 6.2-12.0 [facility] Comment on above: Result Comment: DR. FLORES ORDERED CBCD Performed By: #### L 501.0900, L501.5200, L500.3600, L100.0500 ####[facility] [address] [place], [address] Platelets (Bld) [#/Vol] 214 10*3/uL Normal 150-450 [facility] Comment on above: Result Comment: DR. FLORES ORDERED CBCD Performed By: #### L 501.0900, L501.5200, L500.3600, L100.0500 ####[facility] [address] [place], [address] POSITIVE MORPH YES Abnormal [facility] Comment on above: Result Comment: DR. FLORES ORDERED CBCD Performed By: #### L 501.0900, L501.5200, L500.3600, L100.0500 ####[facility] [address] [place], [address] RBC (Bld) [#/Vol] 3.20 10*6/uL Low 4.2-5.4 [facility] Comment on above: Result Comment: DR. FLORES ORDERED CBCD Performed By: #### L 501.0900, L501.5200, L500.3600, L100.0500 ####[facility] [address] [place], [address] RDW SD 64.7 fl High 35.1-43.9 [facility] Comment on above: Result Comment: DR. FLORES ORDERED CBCD Performed By: #### L 501.0900, L501.5200, L500.3600, L100.0500 ####[facility] [address] [place], [address] WBC (Bld) [#/Vol] 8.9 10*3/uL Normal 4.4-11.0 [facility] Comment on above: Result Comment: DR. FLORES ORDERED CBCD Performed By: #### L 501.0900, L501.5200, L500.3600, L100.0500 ####[facility] [address] [place], [address] Calculated very low density lipoprotein (VLDL) cholesterol measurementOrdered By: Vincent Flores on 01-23-2025 Calculated very low density lipoprotein (VLDL) cholesterol measurement 10 mg/dL 5-40 [facility] Carbon dioxide, total [Moles /volume] in Central venous bloodOrdered By: Jeremy Mcgarry on 01-23-2025 CO2 [Moles/Vol] 23.7 mmol/L 21.0-32.0 [facility] Chloride assayOrdered By: Darío Mcgarry on 01-23-2025 Chloride [Moles/Vol] 91 mmol/L Low 98-108 [facility] Eosinophil percentageOrdered By: Vincent Flores on 01-23-2025 Eosinophils/100 WBC (Bld) 1.0 % 0-5 [facility] Erythrocyte distribution wid th ratioOrdered By: Vincent Flores on 01-23-2025 Erythrocyte distribution width (RBC) [Ratio] 20.2 % High 11.6-14.6 [facility] Erythrocyte distribution wid th standard deviationOrdered By: Vincent Flores on 01-23-2025 Erythrocyte distribution width (RBC) [Ratio] 65.1 fl High 35.1-43.9 [facility] Glomerular filtration rate ( GFR) estimation/1.73 sq m using serum, plasma, or whole bOrdered By: Jeremy Mcgarry on 01-23-2025 GFR/1.73 sq M.predicted among non-blacks MDRD (S/P/Bld) [Vol rate/Area] 25 mL/min/{1.73_m2} Low >60 [facility] Comment on above: mL/min/1.73m2 CKD-EP I Creatinine Equation (2020) Hematocrit Auto (Bld) [Volum e fraction]Ordered By: Vincent Flores on 01-23-2025 Hematocrit (Bld) [Volume fraction] 28.4 % Low 37-47 [facility] Hemoglobin measurementOrdere d By: Vincent Flores on 01-23-2025 Hemoglobin (Bld) [Mass/Vol] 9.4 g/dL Low 12.0-15.0 [facility] Hepatitis C Antibodyon 01-23 Hepatitis C Ab Non-Reactive Normal Nonreactive [facility] Comment on above: Result Comment: Reac tive: Presumptive evidence of antibodies to HCV. Follow[facility] recommendations for supplemental testing.Non-Reactive: Antibodies to HCV were not detected; does notexclude the possibility of exposure to HCVReactive Results are presumptive evidence of antibodies toHCV. Follow CDC recommendations for supplemental testing.Order confirmation testing: HCV Quant by PCR testing -HCVPCR #[id number] Non Reactive: < 0.8 Equivocal: >/= 0.8 to < 1.0 Reactive: >/= 1.0The CDC requires that a reactive/equivocal HCV antibodyresult be sent out for confirmation. HCV Quant by PCRtesting. Performed By: #### L 501.4100, L3890.6301, L501.4600, L100.0100, L501.9520, L001.0705, L501.2300, L501.4305, L501.4405, L500.4100, L506.1001 ####[facility] [address] [place], [place], [id number] Hypochromatic red blood cell detectionOrdered By: Vincent Flores on 01-23-2025 Hypochromia Ql (Bld) 3+ [facility] Immature granulocytes/100 WB C Auto (Bld)Ordered By: Vincent Flores on 01-23-2025 Immature granulocytes/100 WBC (Bld) 0.300 % 0.0-0.9 [facility] Comment on above: IG% - Immature Granu locytes (promyelocytes, myelocytes and metamyelocytes) > 1% indicates that a LEFT SHIFT is Present. LDL calc ser/plasOrdered By: Vincent Flores on 01-23-2025 Cholesterol in LDL [Mass/Vol] 25 mg/dL [facility] Comment on above: Wdubhlqbge=981-761 m g/dL & Higher Ivyc=406 mg/dL or greater Laboratory - Chemistry and C hemistry - challengeOrdered By: Vincent Flores on 01-23-2025 AST [Catalytic activity/Vol] 24 U/L <32 [facility] Laboratory - Hematology and Cell countsOrdered By: Vincent Flores on 01-23-2025 Anisocytosis Ql (Bld) 2+ [facility] Lipid Profileon 01-23-2025 CHOL:HDL 2.00 Normal [facility] [facility] Comment on above: Performed By: #### L 501.4100, L3890.6301, L501.4600, L100.0100, L501.9520, L001.0705, L501.2300, L501.4305, L501.4405, L500.4100, L506.1001 ####[facility] [address] [place], [place], [phone] Cholesterol [Mass/Vol] 72 mg/dL Normal <=200 [facility] Comment on above: Result Comment: Chol esterol level, Desirable <200 mg/dLBorderline high cholesterol 200-239 mg/dLHigh cholesterol >=240 mg/dLRecommendations of the NCEP Adult Treatment Panel for thefollowing risk-cutoff thresholds for the [place] Americanpulation. Performed By: #### L 501.4100, L3890.6301, L501.4600, L100.0100, L501.9520, L001.0705, L501.2300, L501.4305, L501.4405, L500.4100, L506.1001 ####[facility] [address] [place], [address] Cholesterol in HDL [Mass/Vol] 36 mg/dL Low [facility] Comment on above: Result Comment: Ligia onal Cholesterol Education Program (NCEP) guidelines:<40 mg/dL: Low HDL-cholesterol (major risk factor for CHD)>= 60 mg/dL: High HDL-cholesterol (negative risk factor forCHD)HDL-cholesterol is affected by a number of factors, e.g.smoking, exercise, hormones, sex and age. Performed By: #### L 501.4100, L3890.6301, L501.4600, L100.0100, L501.9520, L001.0705, L501.2300, L501.4305, L501.4405, L500.4100, L506.1001 ####[facility] [address] [place], [address] Cholesterol in LDL [Mass/Vol] 25 mg/dL Normal [facility] Comment on above: Result Comment: Bord odpmrb=033-416 mg/dL Higher Hmma=027 mg/dL or greater Performed By: #### L 501.4100, L3890.6301, L501.4600, L100.0100, L501.9520, L001.0705, L501.2300, L501.4305, L501.4405, L500.4100, L506.1001 ####[facility] [address] [place], [address] Cholesterol in VLDL [Mass/Vol] 10 mg/dL Normal 5-40 [facility] Comment on above: Performed By: #### L 501.4100, L3890.6301, L501.4600, L100.0100, L501.9520, L001.0705, L501.2300, L501.4305, L501.4405, L500.4100, L506.1001 ####[facility] [address] [place], [place], [phone] Triglyceride [Mass/Vol] 52 mg/dL Normal [facility] Comment on above: Result Comment: The drugs N-Acetylcysteine and Metamizole may falselydepress this assay.Normal range: <150 mg/dLBorderline High: 150-199 mg/dLHigh: 200-499 mg/dLVery High: >500 mg/dL Performed By: #### L 501.4100, L3890.6301, L501.4600, L100.0100, L501.9520, L001.0705, L501.2300, L501.4305, L501.4405, L500.4100, L506.1001 ####[facility] [address] [place], [place], [address] MCV (mean corpuscular volume ) determinationOrdered By: Vincent Flores on 01-23-2025 MCV (RBC) [Entitic vol] 87.7 fL 81-99 [facility] Magnesiumon 01-23-2025 Magnesium [Mass/Vol] 2.0 mg/dL Normal 1.5-2.2 [facility] Comment on above: Order Comment: DR. Bruce LACEY ORDERED CBCDPLEASE CC COPY OF RENAL AND MG TO DR. FLORES Performed By: #### L 501.0900, L501.5200, L500.3600, L100.0500 ####[facility] [address] [place], [place], [address] Magnesium measurement (mass/ volume)Ordered By: Jeremy Mcgarry on 01-23-2025 Magnesium (Unsp spec) [Mass/Vol] 2.0 mg/dL 1.5-2.2 [facility] Mean corpuscular hemoglobin (MCH) determinationOrdered By: Vincent Flores on 01-23-2025 MCH (RBC) [Entitic mass] 29.0 pg 27.0-32.0 [facility] Mean corpuscular hemoglobin concentration (MCHC) determinationOrdered By: Vincent Flores on 01-23-2025 MCHC (RBC) [Mass/Vol] 33.1 g/dL 32-36 [facility] Mean platelet volume determi nationOrdered By: Vincent Flores on 01-23-2025 Platelet mean volume (Bld) [Entitic vol] 9.9 fL 6.2-12.0 [facility] Monocyte percentageOrdered B y: Vincent Flores on 01-23-2025 Monocytes/100 WBC (Bld) 15.6 % High 0-10 [facility] Neutrophil percentageOrdered By: Vincent Flores on 01-23-2025 Neutrophils/100 WBC (Bld) 65.5 % 47-70 [facility] No Panel InformationOrdered By: Vincent Flores on 01-23-2025 2+ [facility] 24 U/L <32 [facility] Nucleated red blood cell per centageOrdered By: Vincent Flores on 01-23-2025 Nucleated RBC/100 WBC (Bld) [Ratio] 0 % 0-5 [facility] Phosphoruson 01-23-2025 Phosphate [Mass/Vol] 3.1 mg/dL Normal 2.7-4.5 [facility] Comment on above: Performed By: #### L 501.4100, L3890.6301, L501.4600, L100.0100, L501.9520, L001.0705, L501.2300, L501.4305, L501.4405, L500.4100, L506.1001 ####[facility] [address] [place], [address] Platelet countOrdered By: Ishmael Flores on 01-23-2025 Platelets (Bld) [#/Vol] 224 10*3/uL 150-450 [facility] Platelet estimateOrdered By: Vincent Flores on 01-23-2025 Platelets LM Ql (Bld) ADEQUATE ADEQ [facility] Potassium measurement (mass/ volume)Ordered By: Jeremy Mcgarry on 01-23-2025 Potassium (Unsp spec) [Mass/Vol] 3.8 mmol/L 3.3-5.1 [facility] Protein+Creatinine Ratio,Uri neon 01-23-2025 PROT:CRE RATIO 477 mg/g CRE High 0-200 [facility] Comment on above: Performed By: #### L 501.0900, L501.5200, L500.3600, L100.0500 ####[facility] [address] [place], [address] Protein (U) [Mass/Vol] 32.2 mg/dL High 0.0-12.0 [facility] Comment on above: Performed By: #### L 501.0900, L501.5200, L500.3600, L100.0500 ####[facility] [address] [place], [address] UR CREAT 67.50 mg/dL Normal 28.00-217.00 [facility] Comment on above: Performed By: #### L 501.0900, L501.5200, L500.3600, L100.0500 ####[facility] [address] [place], [address] Protein, Totalon 01-23-2025 T PROT 7.4 g/dL Normal 5.9-8.4 [facility] Comment on above: Performed By: #### L 501.4100, L3890.6301, L501.4600, L100.0100, L501.9520, L001.0705, L501.2300, L501.4305, L501.4405, L500.4100, L506.1001 ####[facility] [address] [place], [address] RBC Auto (Bld) [#/Vol]Ordere d By: Vincent Flores on 01-23-2025 RBC (Bld) [#/Vol] 3.24 10*6/uL Low 4.2-5.4 [facility] Random urine creatinine bijan urement (mass/volume)Ordered By: Jeremy Mcgarry on 01-23-2025 Creatinine Unsp time (U) [Mass/Vol] 67.50 mg/dL 28.00-217.00 [facility] Renal Profileon 01-23-2025 Albumin [Mass/Vol] 4.0 g/dL Normal 3.4-4.8 [facility] Comment on above: Order Comment: DR. Bruce LACEY ORDERED CBCDPLEASE CC COPY OF RENAL AND MG TO DR. FLORES Performed By: #### L 501.0900, L501.5200, L500.3600, L100.0500 ####[facility] [address] [place], [address] BUN/CRE 29.1 RATIO High 10-20 [facility] Comment on above: Order Comment: DR. Bruce LACEY ORDERED CBCDPLEASE CC COPY OF RENAL AND MG TO DR. FLORES Performed By: #### L 501.0900, L501.5200, L500.3600, L100.0500 ####[facility] [address] [place], [address] Calcium [Mass/Vol] 9.5 mg/dL Normal 7.6-11.0 [facility] Comment on above: Order Comment: DR. Bruce LACEY ORDERED CBCDPLEASE CC COPY OF RENAL AND MG TO DR. FLORES Performed By: #### L 501.0900, L501.5200, L500.3600, L100.0500 ####[facility] [address] [place], [address] Chloride [Moles/Vol] 91 mmol/L Low 98-108 [facility] Comment on above: Order Comment: DR. Bruce LACEY ORDERED CBCDPLEASE CC COPY OF RENAL AND MG TO DR. FLORES Performed By: #### L 501.0900, L501.5200, L500.3600, L100.0500 ####[facility] [address] [place], [address] CO2 [Moles/Vol] 23.7 mmol/L Normal 21.0-32.0 [facility] Comment on above: Order Comment: DR. Bruce LACEY ORDERED CBCDPLEASE CC COPY OF RENAL AND MG TO DR. FLORES Performed By: #### L 501.0900, L501.5200, L500.3600, L100.0500 ####[facility] [address] [place], [address] Creatinine [Mass/Vol] 1.97 mg/dL High 0.70-1.20 [facility] Comment on above: Order Comment: DR. Bruce LACEY ORDERED CBCDPLEASE CC COPY OF RENAL AND MG TO DR. FLORES Performed By: #### L 501.0900, L501.5200, L500.3600, L100.0500 ####[facility] [address] [place], [address] GAP 17 High 5-15 [facility] Comment on above: Order Comment: DR. Bruce LACEY ORDERED CBCDPLEASE CC COPY OF RENAL AND MG TO DR. FLORES Performed By: #### L 501.0900, L501.5200, L500.3600, L100.0500 ####[facility] [address] [place], [address] GFR/1.73 sq M.predicted among non-blacks MDRD (S/P/Bld) [Vol rate/Area] 25 mL/min/{1.73_m2} Low >60 [facility] Comment on above: Order Comment: DR. Bruce LACEY ORDERED CBCDPLEASE CC COPY OF RENAL AND MG TO DR. FLORES Result Comment: mL/m in/1.73m2 CKD-EPI Creatinine Equation (2020) Performed By: #### L 501.0900, L501.5200, L500.3600, L100.0500 ####[facility] [address] [place], [address] Glucose [Mass/Vol] 105 mg/dL High 70-99 [facility] Comment on above: Order Comment: DR. Bruce LACEY ORDERED CBCDPLEASE CC COPY OF RENAL AND MG TO DR. FLORES Performed By: #### L 501.0900, L501.5200, L500.3600, L100.0500 ####[facility] [address] [place], [address] Phosphate [Mass/Vol] 3.1 mg/dL Normal 2.7-4.5 [facility] Comment on above: Order Comment: DR. Bruce LACEY ORDERED CBCDPLEASE CC COPY OF RENAL AND MG TO DR. FLORES Performed By: #### L 501.0900, L501.5200, L500.3600, L100.0500 ####[facility] [address] [place], [address] Potassium [Moles/Vol] 3.8 mmol/L Normal 3.3-5.1 [facility] Comment on above: Order Comment: DR. Bruce LACEY ORDERED CBCDPLEASE CC COPY OF RENAL AND MG TO DR. FLORES Performed By: #### L 501.0900, L501.5200, L500.3600, L100.0500 ####[facility] [address] [place], [address] Sodium [Moles/Vol] 131 mmol/L Low 133-145 [facility] Comment on above: Order Comment: DR. Bruce LACEY ORDERED CBCDPLEASE CC COPY OF RENAL AND MG TO DR. FLORES Performed By: #### L 501.0900, L501.5200, L500.3600, L100.0500 ####[facility] [address] [place], [address] Urea nitrogen [Mass/Vol] 57 mg/dL High 4-19 [facility] Comment on above: Order Comment: DR. Bruce LACEY ORDERED CBCDPLEASE CC COPY OF RENAL AND MG TO DR. FLORES Performed By: #### L 501.0900, L501.5200, L500.3600, L100.0500 ####[facility] [address] [place], [address] Screening total cholesterol/ high density lipoprotein (HDL) cholesterol ratioOrdered By: Vincent Flores on 01-23-2025 Cholesterol.total/Gin sterol in HDL [Mass ratio] 2.00 {ratio} [facility] Serum creatinine measurement (mass/volume)Ordered By: Jeremy Mcgarry on 01-23-2025 Creatinine [Mass/Vol] 1.97 mg/dL High 0.70-1.20 [facility] Serum glucose measurement (m ass/volume)Ordered By: Jeremy Mcgarry on 01-23-2025 Glucose [Mass/Vol] 105 mg/dL High 70-99 [facility] Serum or plasma alanine craven otransferase (ALT) measurementOrdered By: Vincent Flores on 01-23-2025 ALT [Catalytic activity/Vol] 11 U/L <35 [facility] Serum or plasma albumin bijan urement (mass/volume)Ordered By: Jeremy Mcgarry on 01-23-2025 Albumin [Mass/Vol] 4.0 g/dL 3.4-4.8 [facility] Serum or plasma alkaline da sphatase measurementOrdered By: Vincent Flores on 01-23-2025 ALP [Catalytic activity/Vol] 126 U/L High 35-104 [facility] Serum or plasma calcium bijan urement (mass/volume)Ordered By: Jeremy Mcgarry on 01-23-2025 Calcium [Mass/Vol] 9.5 mg/dL 7.6-11.0 [facility] Serum or plasma cholesterol in HDL measurement (mass/volume)Ordered By: Vincent Flores on 01-23-2025 Cholesterol in HDL [Mass/Vol] 36 mg/dL Low >40 [facility] Comment on above: National Cholesterol Education Program (NCEP) guidelines:<40 mg/dL: Low HDL-cholesterol (major risk factor for CHD)>= 60 mg/dL: High HDL-cholesterol (negative risk factor for CHD)HDL-cholesterol is affected by a number of factors, e.g. smoking, exercise, hormones, sex and age. Serum or plasma cholesterol measurement (mass/volume)Ordered By: Vincent Flores on 01-23-2025 Cholesterol [Mass/Vol] 72 mg/dL <201 [facility] Comment on above: Cholesterol level, D esirable <200 mg/dLBorderline high cholesterol 200-239 mg/dLHigh cholesterol >=240 mg/dLRecommendations of the NCEP Adult Treatment Panel for the following risk-cutoff thresholds for the [place] population. Serum or plasma urea nitroge n measurement (mass/volume)Ordered By: Jeremy Mcgarry on 01-23-2025 Urea nitrogen [Mass/Vol] 57 mg/dL High 4-19 [facility] Sodium levelOrdered By: Alvaro Mcgarry on 01-23-2025 Sodium [Moles/Vol] 131 mmol/L Low 133-145 [facility] TSH DL <= 0.005 mIU/L QnOrde red By: Vincent Flores on 01-23-2025 TSH Qn 6.900 uIU/mL High 0.300-4.200 [facility] Thyroid Stim Hormone (TSH)on 01-23-2025 TSH 6.900 uIU/mL High 0.300-4.200 [facility] Comment on above: Performed By: #### L 501.4100, L3890.6301, L501.4600, L100.0100, L501.9520, L001.0705, L501.2300, L501.4305, L501.4405, L500.4100, L506.1001 ####[facility] [address] [place], [place], [id number] Total Bilirubinon 01-23-2025 Bilirubin [Mass/Vol] 1.15 mg/dL Normal 0.00-1.30 [facility] Comment on above: Performed By: #### L 501.4100, L3890.6301, L501.4600, L100.0100, L501.9520, L001.0705, L501.2300, L501.4305, L501.4405, L500.4100, L506.1001 ####[facility] [address] [place], [place], [id number] Total proteinOrdered By: Vincent Flores on 01-23-2025 Protein [Mass/Vol] 7.4 g/dL 5.9-8.4 [facility] Triglycerides measurementOrd ered By: Vincent Flores on 01-23-2025 Triglyceride [Mass/Vol] 52 mg/dL <199 [facility] Comment on above: The drugs N-Acetylcy steine and Metamizole may falsely depress this assay. Normal range: <150 mg/dLBorderline High: 150-199 mg/dLHigh: 200-499 mg/dLVery High: >500 mg/dL Urine protein measurement (m ass/volume)Ordered By: Jeremy Mcgarry on 01-23-2025 Protein (U) [Mass/Vol] 32.2 mg/dL High 0.0-12.0 [facility] Urine protein/creatinine mas s ratioOrdered By: Jeremy Mcgarry on 01-23-2025 Protein/Creatinine (U) [Mass ratio] 477 mg/g CRE High 0-200 [facility] Vitamin D,25 Hydroxyon 01-23 Vitamin D 25-OH 34.9 ng/mL Normal 30-100 [facility] Comment on above: Result Comment: Haydee min D StatusDeficiency: <20 ng/mL (50nmol/L)Insufficiency: 20-30 ng/mL (50-75 nmol/L)Sufficiency: 30-100 ng/mL (75-250 nmol/L)Toxicity: >100 ng/mL (>250 nmol/L) Performed By: #### L 501.4100, L3890.6301, L501.4600, L100.0100, L501.9520, L001.0705, L501.2300, L501.4305, L501.4405, L500.4100, L506.1001 ####[facility] [address] [place], [address] White blood cell (WBC) count Ordered By: Vincent Flores on 01-23-2025 WBC (Bld) [#/Vol] 9.3 10*3/uL 4.4-11.0 [facility] Anion gap in Serum or Plasma Ordered By: Dianne Stovall on 01-11-2025 Anion gap [Moles/Vol] 13 mmol/L 5-15 [facility] BUN/creatinine ratioOrdered By: Dianne Stovall on 01-11-2025 Urea nitrogen/Creatinine [Mass ratio] 20.6 mg/mg High 04-23 [facility] Basic Metabolic Profile (BMP )on 01-11-2025 BUN/CRE 20.6 RATIO High 04-23 [facility] Comment on above: Performed By: #### L 500.2500 ####[facility] [address] [place], [address] Calcium [Mass/Vol] 9.0 mg/dL Normal 7.6-11.0 [facility] Comment on above: Performed By: #### L 500.2500 ####[facility] [address] [place], [address] Chloride [Moles/Vol] 95 mmol/L Low 98-108 [facility] Comment on above: Performed By: #### L 500.2500 ####[facility] [address] [place], [address] CO2 [Moles/Vol] 25.5 mmol/L Normal 21.0-32.0 [facility] Comment on above: Performed By: #### L 500.2500 ####[facility] [address] [place], [address] Creatinine [Mass/Vol] 1.97 mg/dL High 0.70-1.20 [facility] Comment on above: Performed By: #### L 500.2500 ####[facility] [address] [place], [address] ECRCL 21.99 ml/min Low 50-250 [facility] Comment on above: Performed By: #### L 500.2500 ####[facility] [address] [place], [address] GAP 13 Normal 5-15 [facility] Comment on above: Performed By: #### L 500.2500 ####[facility] [address] [place], [address] GFR/1.73 sq M.predicted among non-blacks MDRD (S/P/Bld) [Vol rate/Area] 25 mL/min/{1.73_m2} Low >60 [facility] Comment on above: Result Comment: mL/m in/1.73m2 CKD-EPI Creatinine Equation (2020) Performed By: #### L 500.2500 ####[facility] [address] [place], [address] Glucose [Mass/Vol] 117 mg/dL High 70-99 [facility] Comment on above: Performed By: #### L 500.2500 ####[facility] [address] [place], [address] Potassium [Moles/Vol] 4.4 mmol/L Normal 3.3-5.1 [facility] Comment on above: Performed By: #### L 500.2500 ####[facility] [address] [place], [address] Sodium [Moles/Vol] 134 mmol/L Normal 133-145 [facility] Comment on above: Performed By: #### L 500.2500 ####[facility] [address] [place], [address] Urea nitrogen [Mass/Vol] 41 mg/dL High 4-19 [facility] Comment on above: Performed By: #### L 500.2500 ####[facility] [address] [place], [address] Bedside Glucoseon 01-11-2025 FINGERSTICK GLU 116 mg/dL High 74-106 [facility] Comment on above: Result Comment: JOHNSON MCCORMACK OF PATIENT CARE PER NURSING PROTOCOL Performed By: #### L 501.080 ####[facility] [address] [place], [address] Carbon dioxide, total [Moles /volume] in Central venous bloodOrdered By: Dianne Stovall on 01-11-2025 CO2 [Moles/Vol] 25.5 mmol/L 21.0-32.0 [facility] Chloride assayOrdered By: Luis Stovall on 01-11-2025 Chloride [Moles/Vol] 95 mmol/L Low 98-108 [facility] Discharge Instructionon 01-02 Discharge Instruction Normal [facility] Glomerular filtration rate ( GFR) estimation/1.73 sq m using serum, plasma, or whole bOrdered By: Dianne Stovall on 01-11-2025 GFR/1.73 sq M.predicted among non-blacks MDRD (S/P/Bld) [Vol rate/Area] 25 mL/min/{1.73_m2} Low >60 [facility] Comment on above: mL/min/1.73m2 CKD-EP I Creatinine Equation (2020) [facility] deOrdered By: Dianne Stovall on 01-11-2025 Glucose [Mass/Vol] 116 mg/dL High 74-106 [facility] Comment on above: MANAGEMENT OF PATIEN T CARE PER NURSING PROTOCOL Potassium measurement (mass/ volume)Ordered By: Dianne Stovall on 01-11-2025 Potassium (Unsp spec) [Mass/Vol] 4.4 mmol/L 3.3-5.1 [facility] Serum creatinine measurement (mass/volume)Ordered By: Dianne Stovall on 01-11-2025 Creatinine [Mass/Vol] 1.97 mg/dL High 0.70-1.20 [facility] Serum glucose measurement (m ass/volume)Ordered By: Dianne Stovall on 01-11-2025 Glucose [Mass/Vol] 117 mg/dL High 70-99 [facility] Serum or plasma calcium bijan urement (mass/volume)Ordered By: Dianne Stovall on 01-11-2025 Calcium [Mass/Vol] 9.0 mg/dL 7.6-11.0 [facility] Serum or plasma urea nitroge n measurement (mass/volume)Ordered By: Dianne Stovall on 01-11-2025 Urea nitrogen [Mass/Vol] 41 mg/dL High 4-19 [facility] Sodium levelOrdered By: Dianne Stovall on 01-11-2025 Sodium [Moles/Vol] 134 mmol/L 133-145 [facility] Bedside Glucoseon 01-10-2025 FINGERSTICK GLU 126 mg/dL High 74-106 [facility] Comment on above: Result Comment: JOHNSON MCCORMACK OF PATIENT CARE PER NURSING PROTOCOL Performed By: #### L 501.080 ####[facility] [address] [place], [address] FINGERSTICK GLU 133 mg/dL High 74-106 [facility] Comment on above: Result Comment: JOHNSON GEMENT OF PATIENT CARE PER NURSING PROTOCOL Performed By: #### L 501.080 ####[facility] [address] [place], [address] FINGERSTICK GLU 134 mg/dL High 74-106 [facility] Comment on above: Result Comment: JOHNSON GEMENT OF PATIENT CARE PER NURSING PROTOCOL Performed By: #### L 501.080 ####[facility] [address] [place], [address] Basic Metabolic Profile (BMP )on 01-09-2025 BUN/CRE 23.6 RATIO High 10-20 [facility] Comment on above: Performed By: #### L 500.2500 ####[facility] [address] [place], [address] Calcium [Mass/Vol] 8.9 mg/dL Normal 7.6-11.0 [facility] Comment on above: Performed By: #### L 500.2500 ####[facility] [address] [place], [address] Chloride [Moles/Vol] 95 mmol/L Low 98-108 [facility] Comment on above: Performed By: #### L 500.2500 ####[facility] [address] [place], [address] CO2 [Moles/Vol] 24.5 mmol/L Normal 21.0-32.0 [facility] Comment on above: Performed By: #### L 500.2500 ####[facility] [address] [place], [address] Creatinine [Mass/Vol] 1.85 mg/dL High 0.70-1.20 [facility] Comment on above: Performed By: #### L 500.2500 ####[facility] [address] [place], [address] ECRCL 23.14 ml/min Low 50-250 [facility] Comment on above: Performed By: #### L 500.2500 ####[facility] [address] [place], [address] GAP 13 Normal 5-15 [facility] Comment on above: Performed By: #### L 500.2500 ####[facility] [address] [place], [address] GFR/1.73 sq M.predicted among non-blacks MDRD (S/P/Bld) [Vol rate/Area] 27 mL/min/{1.73_m2} Low >60 [facility] Comment on above: Result Comment: mL/m in/1.73m2 CKD-EPI Creatinine Equation (2020) Performed By: #### L 500.2500 ####[facility] [address] [place], [address] Glucose [Mass/Vol] 135 mg/dL High 70-99 [facility] Comment on above: Performed By: #### L 500.2500 ####[facility] [address] [place], [address] Potassium [Moles/Vol] 4.5 mmol/L Normal 3.3-5.1 [facility] Comment on above: Performed By: #### L 500.2500 ####[facility] [address] [place], [address] Sodium [Moles/Vol] 133 mmol/L Normal 133-145 [facility] Comment on above: Performed By: #### L 500.2500 ####[facility] [address] [place], [address] Urea nitrogen [Mass/Vol] 44 mg/dL High 4-19 [facility] Comment on above: Performed By: #### L 500.2500 ####[facility] [address] [place], [address] Bedside Glucoseon 01-09-2025 FINGERSTICK GLU 111 mg/dL High 74-106 [facility] Comment on above: Result Comment: JOHNSON GEMENT OF PATIENT CARE PER NURSING PROTOCOL Performed By: #### L 501.080 ####[facility] [address] [place], [address] FINGERSTICK GLU 214 mg/dL High 74-106 [facility] Comment on above: Result Comment: JOHNSON GEMENT OF PATIENT CARE PER NURSING PROTOCOL Performed By: #### L 501.080 ####[facility] [address] [place], [address] FINGERSTICK GLU 132 mg/dL High 74-106 [facility] Comment on above: Result Comment: JOHNSON GEMENT OF PATIENT CARE PER NURSING PROTOCOL Performed By: #### L 501.080 ####[facility] [address] [place], [address] Absolute lymphocyte countOrd ered By: Radha Heller on 01-08-2025 Lymphocytes Auto (Unsp spec) [#/Vol] 2.11 10*3/uL 0.83-4.51 [facility] Absolute neutrophil countOrd ered By: Radha Heller on 01-08-2025 Neutrophils (Bld) [#/Vol] 3.0 10*3/uL 2.0-7.7 [facility] Automated lymphocyte count a s percentage of total leukocytesOrdered By: Radha Heller on 01-08-2025 Lymphocytes/100 WBC Auto (Unsp spec) 33.8 % 19-41 [facility] Basic Metabolic Profile (BMP )on 01-08-2025 BUN/CRE 24.9 RATIO High 10-20 [facility] Comment on above: Performed By: #### L 501.5200, L501.9520, L100.0100, L500.2500, L500.4100 ####[facility] [address] [place], [address] Calcium [Mass/Vol] 8.8 mg/dL Normal 7.6-11.0 [facility] Comment on above: Performed By: #### L 501.5200, L501.9520, L100.0100, L500.2500, L500.4100 ####[facility] [address] [place], [address] Chloride [Moles/Vol] 93 mmol/L Low 98-108 [facility] Comment on above: Performed By: #### L 501.5200, L501.9520, L100.0100, L500.2500, L500.4100 ####[facility] [address] [place], [address] CO2 [Moles/Vol] 25.7 mmol/L Normal 21.0-32.0 [facility] Comment on above: Performed By: #### L 501.5200, L501.9520, L100.0100, L500.2500, L500.4100 ####[facility] [address] [place], [address] Creatinine [Mass/Vol] 1.79 mg/dL High 0.70-1.20 [facility] Comment on above: Performed By: #### L 501.5200, L501.9520, L100.0100, L500.2500, L500.4100 ####[facility] [address] [place], [address] ECRCL 23.72 ml/min Low 50-250 [facility] Comment on above: Performed By: #### L 501.5200, L501.9520, L100.0100, L500.2500, L500.4100 ####[facility] [address] [place], [address] GAP 12 Normal 5-15 [facility] Comment on above: Performed By: #### L 501.5200, L501.9520, L100.0100, L500.2500, L500.4100 ####[facility] [address] [place], [address] GFR/1.73 sq M.predicted among non-blacks MDRD (S/P/Bld) [Vol rate/Area] 28 mL/min/{1.73_m2} Low >60 [facility] Comment on above: Result Comment: mL/m in/1.73m2 CKD-EPI Creatinine Equation (2020) Performed By: #### L 501.5200, L501.9520, L100.0100, L500.2500, L500.4100 ####[facility] [address] [place], [address] Glucose [Mass/Vol] 129 mg/dL High 70-99 [facility] Comment on above: Performed By: #### L 501.5200, L501.9520, L100.0100, L500.2500, L500.4100 ####[facility] [address] [place], [address] Potassium [Moles/Vol] 4.1 mmol/L Normal 3.3-5.1 [facility] Comment on above: Performed By: #### L 501.5200, L501.9520, L100.0100, L500.2500, L500.4100 ####[facility] [address] [place], [address] Sodium [Moles/Vol] 130 mmol/L Low 133-145 [facility] Comment on above: Performed By: #### L 501.5200, L501.9520, L100.0100, L500.2500, L500.4100 ####[facility] [address] [place], [address] Urea nitrogen [Mass/Vol] 45 mg/dL High 4-19 [facility] Comment on above: Performed By: #### L 501.5200, L501.9520, L100.0100, L500.2500, L500.4100 ####[facility] [address] [place], [address] Basophil percentageOrdered B y: Radha Heller on 01-08-2025 Basophils/100 WBC (Bld) 1.0 % 0-1 [facility] Bedside Glucoseon 01-08-2025 FINGERSTICK GLU 184 mg/dL High 74-106 [facility] Comment on above: Result Comment: JOHNSON GEMENT OF PATIENT CARE PER NURSING PROTOCOL Performed By: #### L 501.080 ####[facility] [address] [place], [address] FINGERSTICK GLU 136 mg/dL High 74-106 [facility] Comment on above: Result Comment: JOHNSON GEMENT OF PATIENT CARE PER NURSING PROTOCOL Performed By: #### L 501.080 ####[facility] [address] [place], [address] FINGERSTICK GLU 124 mg/dL High 74-106 [facility] Comment on above: Result Comment: JOHNSON GEMENT OF PATIENT CARE PER NURSING PROTOCOL Performed By: #### L 501.080 ####[facility] [address] [place], [address] Blood manual differential co mment interpretation (narrative result)Ordered By: Radha Heller on 01-08-2025 Manual differential comment Cristhian (Bld) [Interp] SCANNED [facility] CBC W/Diff, Automatedon RED CELL MORPH NORM C+C Normal NORM C C [facility] Comment on above: Performed By: #### L 501.5200, L501.9520, L100.0100, L500.2500, L500.4100 ####[facility] [address] [place], [address] PLT EST ADEQUATE Normal ADEQ [facility] Comment on above: Performed By: #### L 501.5200, L501.9520, L100.0100, L500.2500, L500.4100 ####[facility] [address] [place], [address] SMEAR COMMENT SCANNED Normal [facility] Comment on above: Performed By: #### L 501.5200, L501.9520, L100.0100, L500.2500, L500.4100 ####[facility] [address] [place], [address] Calculated very low density lipoprotein (VLDL) cholesterol measurementOrdered By: Radha Heller on 01-08-2025 Calculated very low density lipoprotein (VLDL) cholesterol measurement 14 mg/dL 5-40 [facility] Carotid Duplex Ultrasoundon 01-08-2025 Carotid Duplex Ultrasound Normal [facility] Consultation - Nephrologyon 01-08-2025 Consultation - Nephrology Normal [facility] Discharge Instructionon Discharge Instruction Normal [facility] Duplex ultrasound of carotid artery reportOrdered By: Abundio Turcios on 01-08-2025 Study report [facility] [address] [place] [address] Carotid Duplex Ultrasound 01/08/25 0841 MR#: [id number] Acct: [id number] Name: BERAT SANCHES Rep #:[id number] : 1945 79 [...] the left vertebral artery. Procedure Carotid Duplex 62707. This is a Carotid Duplex examination using [...] 1244 Date _ Abundio Turcios MD CC: TENNIS INSTRUCTORSammy Collazo; Dr. Carla Ha DO; Dr. 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 [address] Echo Complete 01/08/25 1058 MR#: [id number] Acct: [id number] Name: BERTA SANCHES Rep #:[id number] : 1945 79 From: Yaniv Molina Attending Dr: Dr. 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 Dianne Stovall DO Status: ADM IN Ordering Dr: Sheree Simmons Date: 01/07/25 Location: [facility] Sex: F C Admitted: 01/07/25 Test [...] ECG Confirmed by YANIV MASTERS MD ([id number]), supervising film or videotape editor ROJELIO TADEO ([id number]) on 01/08/2025 11:01:47 AM Referred By: Confirmed By: YANIV MASTERS MD 01/08/25 1101 Date _ Yaniv Masters MD CC: TENNIS INSTRUCTOR-Ivett Collazo; Dr. Dianne Stovall DO; FERNANDO Uriostegui ~ Signed [facility] Work Phone: Eosinophil percentageOrdered By: Radha Heller on 01-08-2025 Eosinophils/100 WBC (Bld) 2.1 % 0-5 [facility] Erythrocyte distribution wid th ratioOrdered By: Radha Heller on 01-08-2025 Erythrocyte distribution width (RBC) [Ratio] 19.8 % High 11.6-14.6 [facility] Erythrocyte distribution wid th standard deviationOrdered By: Radha Heller on 01-08-2025 Erythrocyte distribution width (RBC) [Ratio] 64.7 fl High 35.1-43.9 [facility] Erythrocyte morphology asses smentOrdered By: Radha Heller on 01-08-2025 RBC morphology finding Nom (Bld) NORM C+C NORMAL NORM C&C [facility] Hematocrit Auto (Bld) [Volum e fraction]Ordered By: Radha Heller on 01-08-2025 Hematocrit (Bld) [Volume fraction] 28.4 % Low 37-47 [facility] Hemoglobin A1con 01-08-2025 HbA1c (Bld) [Mass fraction] 7.0 % High <=5.6 [facility] Comment on above: Result Comment: Norm al < 5.7 % Prediabetic 5.7 - 6.4 % Diabetic >or= 6.5 % Please note range changes. Performed By: #### L 501.9949 ####[facility] [address] [place], [address] Hemoglobin A1c percentageOrd ered By: Carla Barksdale on 01-08-2025 HbA1c (Bld) [Mass fraction] 7.0 % High <5.7 [facility] Comment on above: Normal < 5.7 % Predi abetic 5.7 - 6.4 % Diabetic >or= 6.5 % Please note range changes. Hemoglobin measurementOrdere d By: Radha Heller on 01-08-2025 Hemoglobin (Bld) [Mass/Vol] 9.0 g/dL Low 12.0-15.0 [facility] Immature granulocytes/100 WB C Auto (Bld)Ordered By: Radha Heller on 01-08-2025 Immature granulocytes/100 WBC (Bld) 0.300 % 0.0-0.9 [facility] Comment on above: IG% - Immature Granu locytes (promyelocytes, myelocytes and metamyelocytes) > 1% indicates that a LEFT SHIFT is Present. LDL calc ser/plasOrdered By: Radha Heller on 01-08-2025 Cholesterol in LDL [Mass/Vol] 26 mg/dL [facility] Comment on above: Cdlsjrdhzb=515-197 m g/dL & Higher Bpdg=281 mg/dL or greater Lipid Profileon 01-08-2025 CHOL:HDL 2.38 Normal [facility] Comment on above: Performed By: #### L 501.5200, L501.9520, L100.0100, L500.2500, L500.4100 ####[facility] [address] [place], [place], [address] Cholesterol [Mass/Vol] 68 mg/dL Normal <=200 [facility] Comment on above: Result Comment: Chol esterol level, Desirable <200 mg/dLBorderline high cholesterol 200-239 mg/dLHigh cholesterol >=240 mg/dLRecommendations of the NCEP Adult Treatment Panel for thefollowing risk-cutoff thresholds for the [place] [facility]. Performed By: #### L 501.5200, L501.9520, L100.0100, L500.2500, L500.4100 ####[facility] [address] [place], [place], [address] Cholesterol in HDL [Mass/Vol] 29 mg/dL Low [facility] Comment on above: Result Comment: Ligia onal Cholesterol Education Program (NCEP) guidelines:<40 mg/dL: Low HDL-cholesterol (major risk factor for CHD)>= 60 mg/dL: High HDL-cholesterol (negative risk factor forCHD)HDL-cholesterol is affected by a number of factors, e.g.smoking, exercise, hormones, sex and age. Performed By: #### L 501.5200, L501.9520, L100.0100, L500.2500, L500.4100 ####[facility] [address] [place], [address] Cholesterol in LDL [Mass/Vol] 26 mg/dL Normal [facility] Comment on above: Result Comment: Bord zjogmy=293-205 mg/dL Higher Irpe=493 mg/dL or greater Performed By: #### L 501.5200, L501.9520, L100.0100, L500.2500, L500.4100 ####[facility] [address] [place], [address] Cholesterol in VLDL [Mass/Vol] 14 mg/dL Normal 5-40 [facility] Comment on above: Performed By: #### L 501.5200, L501.9520, L100.0100, L500.2500, L500.4100 ####[facility] [address] [place], [address] Triglyceride [Mass/Vol] 69 mg/dL Normal [facility] Comment on above: Result Comment: The drugs N-Acetylcysteine and Metamizole may falselydepress this assay.Normal range: <150 mg/dLBorderline High: 150-199 mg/dLHigh: 200-499 mg/dLVery High: >500 mg/dL Performed By: #### L 501.5200, L501.9520, L100.0100, L500.2500, L500.4100 ####[facility] [address] [place], [address] MCV (mean corpuscular volume ) determinationOrdered By: Radha Heller on 01-08-2025 MCV (RBC) [Entitic vol] 89.3 fL 81-99 [facility] Magnesiumon 01-08-2025 Magnesium [Mass/Vol] 2.4 mg/dL High 1.5-2.2 [facility] Comment on above: Performed By: #### L 501.5200, L501.9520, L100.0100, L500.2500, L500.4100 ####[facility] [address] [place], [place], [address] Magnesium measurement (mass/ volume)Ordered By: Radha Heller on 01-08-2025 Magnesium (Unsp spec) [Mass/Vol] 2.4 mg/dL High 1.5-2.2 [facility] Mean corpuscular hemoglobin (MCH) determinationOrdered By: Radha Heller on 01-08-2025 MCH (RBC) [Entitic mass] 28.3 pg 27.0-32.0 [facility] Mean corpuscular hemoglobin concentration (MCHC) determinationOrdered By: Radha Heller on 01-08-2025 MCHC (RBC) [Mass/Vol] 31.7 g/dL Low 32-36 [facility] Mean platelet volume determi nationOrdered By: Radha Heller on 01-08-2025 Platelet mean volume (Bld) [Entitic vol] 9.6 fL 6.2-12.0 [facility] Monocyte percentageOrdered B y: Radha Heller on 01-08-2025 Monocytes/100 WBC (Bld) 15.5 % High 0-10 [facility] Neutrophil percentageOrdered By: Radha Heller on 01-08-2025 Neutrophils/100 WBC (Bld) 47.3 % 47-70 [facility] Nucleated red blood cell per centageOrdered By: Radha Heller on 01-08-2025 Nucleated RBC/100 WBC (Bld) [Ratio] 0 % 0-5 [facility] Platelet countOrdered By: Fernando Heller on 01-08-2025 Platelets (Bld) [#/Vol] 155 10*3/uL 150-450 [facility] Platelet estimateOrdered By: Radha Heller on 01-08-2025 Platelets LM Ql (Bld) ADEQUATE ADEQ [facility] RBC Auto (Bld) [#/Vol]Ordere d By: Radha Heller on 01-08-2025 RBC (Bld) [#/Vol] 3.18 10*6/uL Low 4.2-5.4 [facility] Screening total cholesterol/ high density lipoprotein (HDL) cholesterol ratioOrdered By: Radha Heller on 01-08-2025 Cholesterol.total/Gin sterol in HDL [Mass ratio] 2.38 {ratio} [facility] Serum or plasma cholesterol in HDL measurement (mass/volume)Ordered By: Radha Heller on 01-08-2025 Cholesterol in HDL [Mass/Vol] 29 mg/dL Low >40 [facility] Comment on above: National Cholesterol Education Program (NCEP) guidelines:<40 mg/dL: Low HDL-cholesterol (major risk factor for CHD)>= 60 mg/dL: High HDL-cholesterol (negative risk factor for CHD)HDL-cholesterol is affected by a number of factors, e.g. smoking, exercise, hormones, sex and age. Serum or plasma cholesterol measurement (mass/volume)Ordered By: Radha Heller on 01-08-2025 Cholesterol [Mass/Vol] 68 mg/dL <201 [facility] Comment on above: Cholesterol level, D esirable <200 mg/dLBorderline high cholesterol 200-239 mg/dLHigh cholesterol >=240 mg/dLRecommendations of the NCEP Adult Treatment Panel for the following risk-cutoff thresholds for the [place] population. TSH DL <= 0.005 mIU/L QnOrde red By: Radha Heller on 01-08-2025 TSH Qn 4.850 uIU/mL High 0.300-4.200 [facility] Thyroid Stim Hormone (TSH)on 01-08-2025 TSH 4.850 uIU/mL High 0.300-4.200 [facility] Comment on above: Performed By: #### L 501.5200, L501.9520, L100.0100, L500.2500, L500.4100 ####[facility] [address] [place], [place], [address] Triglycerides measurementOrd ered By: Radha Heller on 01-08-2025 Triglyceride [Mass/Vol] 69 mg/dL <199 [facility] Comment on above: The drugs N-Acetylcy steine and Metamizole may falsely depress this assay. Normal range: <150 mg/dLBorderline High: 150-199 mg/dLHigh: 200-499 mg/dLVery High: >500 mg/dL White blood cell (WBC) count Ordered By: Radha Heller on 01-08-2025 WBC (Bld) [#/Vol] 6.3 10*3/uL 4.4-11.0 [facility] 12 Lead EKGon 01-07-2025 12 Lead EKG Normal [facility] Absolute lymphocyte countOrd ered By: ED PROVIDER on 01-07-2025 Lymphocytes Auto (Unsp spec) [#/Vol] 1.52 10*3/uL 0.83-4.51 [facility] Absolute neutrophil countOrd ered By: ED PROVIDER on 01-07-2025 Neutrophils (Bld) [#/Vol] 3.8 10*3/uL 2.0-7.7 [facility] Anion gap in Serum or Plasma Ordered By: ED PROVIDER on 01-07-2025 Anion gap [Moles/Vol] 15 mmol/L 11-16 [facility] Automated lymphocyte count a s percentage of total leukocytesOrdered By: ED PROVIDER on 01-07-2025 Lymphocytes/100 WBC Auto (Unsp spec) 24.2 % 19-41 [facility] BUN/creatinine ratioOrdered By: ED PROVIDER on 01-07-2025 Urea nitrogen/Creatinine [Mass ratio] 26.4 mg/mg High 10-20 [facility] Basic Metabolic Profile (BMP )on 01-07-2025 BUN/CRE 26.4 RATIO High 10- [facility] Comment on above: Performed By: #### L 500.2500, L100.0100 ####[facility] [address] [place], [address] ECRCL 24.26 ml/min Low 50-250 [facility] Comment on above: Performed By: #### L 500.2500, L100.0100 ####[facility] [address] [place], [address] GAP 15 Normal - [facility] Comment on above: Performed By: #### L 500.2500, L100.0100 ####[facility] [address] [place], [address] Potassium [Moles/Vol] 4.2 mmol/L Normal 3.3-5.1 [facility] Comment on above: Performed By: #### L 500.2500, L100.0100 ####[facility] [address] [place], [address] Basophil percentageOrdered B y: ED PROVIDER on 01-07-2025 Basophils/100 WBC (Bld) 1.0 % 0-1 [facility] Bedside Glucoseon 01-07-2025 FINGERSTICK GLU 166 mg/dL High 74-106 [facility] Comment on above: Result Comment: JOHNSON GEMENT OF PATIENT CARE PER NURSING PROTOCOL Performed By: #### L 501.080 ####[facility] [address] [place], [address] FINGERSTICK GLU 104 mg/dL Normal 74-106 [facility] Comment on above: Result Comment: JOHNSON GEMENT OF PATIENT CARE PER NURSING PROTOCOL Performed By: #### L 501.080 ####[facility] [address] [place], [address] CBC W/Diff, AutomatedOrdered By: ED PROVIDER on 01-07-2025 Anisocytosis Ql (Bld) 1+ Normal [facility] Comment on above: Performed By: #### L 500.2500, L100.0100 ####[facility] [address] [place], [address] Carbon dioxide, total [Moles /volume] in Central venous bloodOrdered By: ED PROVIDER on 01-07-2025 CO2 [Moles/Vol] 23.9 mmol/L Normal 21.0-32.0 [facility] Comment on above: Performed By: #### L 500.2500, L100.0100 ####[facility] [address] [place], [address] Chest PA and Lateralon 01-07 Chest PA and Lateral Normal [facility] Chloride assayOrdered By: ED PROVIDER on 01-07-2025 Chloride [Moles/Vol] 91 mmol/L Low 98-108 [facility] Comment on above: Performed By: #### L 500.2500, L100.0100 ####[facility] [address] [place], [place], [address] Echo Completeon 01-07-2025 Echo Complete Normal [facility] Emergency Department Summary on 01-07-2025 Emergency Department Summary Normal [facility] Eosinophil percentageOrdered By: ED PROVIDER on 01-07-2025 Eosinophils/100 WBC (Bld) 1.8 % 0-5 [facility] Erythrocyte distribution wid th ratioOrdered By: ED PROVIDER on 01-07-2025 Erythrocyte distribution width (RBC) [Ratio] 19.9 % High 11.6-14.6 [facility] Erythrocyte distribution wid th standard deviationOrdered By: ED PROVIDER on 01-07-2025 Erythrocyte distribution width (RBC) [Ratio] 65.6 fl High 35.1-43.9 [facility] Glomerular filtration rate ( GFR) estimation/1.73 sq m using serum, plasma, or whole bOrdered By: ED PROVIDER on 01-07-2025 GFR/1.73 sq M.predicted among non-blacks MDRD (S/P/Bld) [Vol rate/Area] 29 mL/min/{1.73_m2} Low >60 [facility] Comment on above: mL/min/1.73m2 CKD-EP I Creatinine Equation (2020) Result Comment: mL/m in/1.73m2 CKD-EPI Creatinine Equation (2020) Performed By: #### L 500.2500, L100.0100 ####[facility] [address] [place], [address] H AND P Exam - Hospitaliston 01-07-2025 H&P Exam - Hospitalist Normal [facility] Hematocrit Auto (Bld) [Volum e fraction]Ordered By: ED PROVIDER on 01-07-2025 Hematocrit (Bld) [Volume fraction] 29.6 % Low 37-47 [facility] Hemoglobin measurementOrdere d By: ED PROVIDER on 01-07-2025 Hemoglobin (Bld) [Mass/Vol] 9.4 g/dL Low 12.0-15.0 [facility] Immature granulocytes/100 WB C Auto (Bld)Ordered By: ED PROVIDER on 01-07-2025 Immature granulocytes/100 WBC (Bld) 0.300 % 0.0-0.9 [facility] Comment on above: IG% - Immature Granu locytes (promyelocytes, myelocytes and metamyelocytes) > 1% indicates that a LEFT SHIFT is Present. L499.0042on 01-07-2025 Trop T High Sen 68 ng/L Invalid Interpretation Code <=14 [facility] Comment on above: Result Comment: Crit ical Result(s) Called at: 01/07/2025-15:45 by: Francisco J Carrera.??Results read back by same. Performed By: #### L 499.0042 ####[facility] [address], [address] L501.4021on 01-07-2025 Trop T High Sen 71 ng/L Invalid Interpretation Code <=14 [facility] Comment on above: Result Comment: Crit ical Result(s) Called at: 01/07/2025-13:48 by: Andreea.??Results read back by same. Performed By: #### L 501.4021, L503.7265 ####[facility] [address] [place], [address] L503.7505on 01-07-2025 Natriuretic peptide B (Bld) [Mass/Vol] 36343 pg/mL High <=1800 [facility] Comment on above: Result Comment: Hear t Failure Unlikely: < 300 pg/mLHeart Failure Likely< 50 Years: > 450 pg/mL50-75 Years: > 900 pg/mL>75 Years: > 1800 pg/mL Performed By: #### L 501.4021, L503.7505 ####[facility] [address] [facility] [address] [address] [place], [place], [address] MCV (mean corpuscular volume ) determinationOrdered By: ED PROVIDER on 01-07-2025 MCV (RBC) [Entitic vol] 90.0 fL 81-99 [facility] Mean corpuscular hemoglobin (MCH) determinationOrdered By: ED PROVIDER on 01-07-2025 MCH (RBC) [Entitic mass] 28.6 pg 27.0-32.0 [facility] Mean corpuscular hemoglobin concentration (MCHC) determinationOrdered By: ED PROVIDER on 01-07-2025 MCHC (RBC) [Mass/Vol] 31.8 g/dL Low 32-36 [facility] Mean platelet volume determi nationOrdered By: ED PROVIDER on 01-07-2025 Platelet mean volume (Bld) [Entitic vol] 9.6 fL 6.2-12.0 [facility] Monocyte percentageOrdered B y: ED PROVIDER on 01-07-2025 Monocytes/100 WBC (Bld) 12.9 % High 0-10 [facility] Natriuretic peptide.B prohor daria N-Terminal [Mass/volume] in Serum or PlasmaOrdered By: Sheree Simmons on 01-07-2025 Natriuretic peptide.B prohormone N-Terminal [Mass/Vol] 64038 pg/mL High <1800 [facility] Comment on above: Heart Failure Unlike ly: < 300 pg/mLHeart Failure Likely< 50 Years: > 450 pg/mL50-75 Years: > 900 pg/mL>75 Years: > 1800 pg/mL Neutrophil percentageOrdered By: ED PROVIDER on 01-07-2025 Neutrophils/100 WBC (Bld) 59.8 % 47-70 [facility] No Panel InformationOrdered By: ED PROVIDER on 01-07-2025 1+ [facility] Nucleated red blood cell per centageOrdered By: ED PROVIDER on 01-07-2025 Nucleated RBC/100 WBC (Bld) [Ratio] 0 % 0-5 [facility] Platelet countOrdered By: ED PROVIDER on 01-07-2025 Platelets (Bld) [#/Vol] 165 10*3/uL 150-450 [facility] Potassium measurement (mass/ volume)Ordered By: ED PROVIDER on 01-07-2025 Potassium (Unsp spec) [Mass/Vol] 4.2 mmol/L 3.3-5.1 [facility] RBC Auto (Bld) [#/Vol]Ordere d By: ED PROVIDER on 01-07-2025 RBC (Bld) [#/Vol] 3.29 10*6/uL Low 4.2-5.4 [facility] STROKE Brain/Head without Co nton 01-07-2025 STROKE Brain/Head without Cont Normal [facility] STROKE CTA Head AND Neck W/C onon 01-07-2025 STROKE CTA Head AND Neck W/Con Normal [facility] Serum creatinine measurement (mass/volume)Ordered By: ED PROVIDER on 01-07-2025 Creatinine [Mass/Vol] 1.77 mg/dL High 0.70-1.20 [facility] Comment on above: Performed By: #### L 500.2500, L100.0100 ####[facility] [address] [place], [address] Serum glucose measurement (m ass/volume)Ordered By: ED PROVIDER on 01-07-2025 Glucose [Mass/Vol] 194 mg/dL High 70-99 [facility] Comment on above: Performed By: #### L 500.2500, L100.0100 ####[facility] [address] [place], [address] Serum or plasma calcium bijan urement (mass/volume)Ordered By: ED PROVIDER on 01-07-2025 Calcium [Mass/Vol] 8.8 mg/dL Normal 7.6-11.0 [facility] Comment on above: Performed By: #### L 500.2500, L100.0100 ####[facility] [address] [place], [address] Serum or plasma urea nitroge n measurement (mass/volume)Ordered By: ED PROVIDER on 01-07-2025 Urea nitrogen [Mass/Vol] 47 mg/dL High 4-19 [facility] Comment on above: Performed By: #### L 500.2500, L100.0100 ####[facility] [address] [place], [address] Sodium levelOrdered By: ED Yue AUSTIN on 01-07-2025 Sodium [Moles/Vol] 129 mmol/L Low 133-145 [facility] Comment on above: Performed By: #### L 500.2500, L100.0100 ####[facility] [address] [place], [address] Troponin T.cardiac [Mass/vol ume] in Serum or Plasma by High sensitivity methodOrdered By: Sheree Simmons on 01-07-2025 Troponin T.cardiac High sensitivity method [Mass/Vol] 68 ng/L Critically high <14 [facility] Comment on above: Critical Result(s) C alled at: 01/07/2025-15:45 by: Tai Garcia to Jen Carrera. Results read back by same. Troponin T.cardiac High sensitivity method [Mass/Vol] 71 ng/L Critically high <14 [facility] Comment on above: Critical Result(s) C alled at: 01/07/2025-13:48 by: Danika Blanchard. Results read back by same. White blood cell (WBC) count Ordered By: ED PROVIDER on 01-07-2025 WBC (Bld) [#/Vol] 6.3 10*3/uL 4.4-11.0 [facility] CNOVon 01-01-2025 CNOV Office Visit (JOHNNY ) BERTA SANCHES ([id number]) 1945 F [place] Date Time Provider Department 01/01/25 11:00 AM CARLA BURDICK During your visit today, we recorded the following information about you: Pulse Respiration Blood pressure Weight 84/minute 18/minute 156/60 67.4 kg Height 1.575 m Carla Burdick MD 01/01/2025 12:27 PM Signed [facility] SE[facility] REGIONAL CARDIOLOGY Cardiology ([facility]) [address] [facility] [id number] OUTPATIENT VISIT DATE 01/01/2025 PRIMARY CARE PHYSICIAN: Gerard Le [address] [place] [address] HISTORY OF PRESENT ILLNESS: Ms. Sanches is a 79 year old woman with a history of remote aortic valve replacement with homograft in 1996 and possible repair of the ascending aorta, chronic diastolic congestive heart failure, hypertension, dyslipidemia, atrial fibrillation with history of pulmonary vein isolation procedures, pacemaker placement and watchman procedure who presents for follow-up. Patient was admitted to [facility]. She was discharged after 2 days. 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 Lua PACEMAKER 10/2019 PART. HYSTERECTOMY W/WO RMVL OVARIES/TUBES 1973 h/o cervical cancer ovaries remain PAST SURGICAL HISTORY OF 1996 Aortic valve repair, Dr. Apodaca PAST SURGICAL HISTORY OF 2001 [address] Beltrán, [facility] PAST SURGICAL HISTORY OF 2015 [...] and 1 (more content not included)... Normal [facility] Connie 12-26-2024 [facility] Telephone ([facility]) BERTA SANCHES ([id number]) 1945 F [place] Date Time Provider Department 12/26/[address] 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 [facility] ) BERTA SANCHES ([id number]) 1945 F [place] Date Time Provider Department 12/20/24 8:45 AM LARS SILVA During your visit today, we recorded the following information about you: Pulse Blood pressure Weight 77/minute 154/75 67.4 kg Lars Silva, DO 12/20/2024 5:56 PM Signed [facility] [place] DEPARTMENT OF VASCULAR SURGERY OUTPATIENT VISIT DATE December 20, 2024 OUTPATIENT VISIT TYPE ESTABLISHED SERVICE DATE: 12/20/2024 SERVICE TIME: 8:53 AM PRIMARY CARE PHYSICIAN: Deysi Collazo APRN.SOCIAL SCIENCE INSTRUCTOR HISTORY OF PRESENT ILLNESS: Ms. Sanches is a 79 year old female who presents today for a vascular surgery follow-up visit follow up on mesenteric duplex. She recently increased her lasix at the CHF clinic. She had a stent placed in [place] in September. She was recently admitted to [facility] [place] for anemia. She has noted increased swelling. 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 Lua PACEMAKER 10/2019 PART. HYSTERECTOMY W/WO RMVL OVARIES/TUBES 1974 h/o cervical cancer ovaries remain PAST SURGICAL HISTORY OF 1996 Aortic valve repair, Dr. Apodaca PAST SURGICAL HISTORY OF 2001 [address] Beltrán, [facility] PAST SURGICAL HISTORY OF 2015 [...] blood sugar (more content not included)... Normal [facility] MESENTERIC ARTERY CMPLT V LABon 12-20-2024 MESENTERIC ARTERY CMPLT VAS LAB Non-Invasive Vascular Laboratory [place] [facility] Renal or Mesenteric Duplex [...] Unable to visualize. Technologist: Chantell Ferrari RVT, [facility] Ordering physician: LARS SILVA Interpreting physician: Terrance Oseguera MD, BIJAN Final CC Explore.To [employer] Pages Medical Image : [id number] See Link below for Image Normal [facility] CNOVon 12-19-2024 CN [facility] BERTA SANCHES ([id number]) 1945 F [facility] Date Time Provider Department 12/19/24 11:00 AM [facility] During your visit today, we recorded the following information about you: Pulse Blood pressure Weight 79/minute 157/54 65.3 kg Albin Gu APRN.SOCIAL SCIENCE INSTRUCTOR 12/19/2024 11:41 AM Addendum 40 mg intravenous [...] or concern, you can call me at [phone]. Albin Gu APRN.CNP 12/19/2024 11:45 AM Signed [facility] [place] [facility] Heart Failure Clinic OUTPATIENT VISIT DATE [...] and was worried about traveling home to [place] in a few days. Discussed with her taking lasix as it was prescribed. As her spironolactone was stopped, did advise patient restart this at 25 mg once a day for four days only. She was instructed to call office in a week to review symptoms. On 10/15, patient presented back to [facility] for gastrointestinal bleed. She had a colonoscopy [...] and entresto. The patient wished to leave [place] so she could return to [place]. Cardiology and Pulmonary agreed with discharge. Patient [...] lbs Hospital disch (more content not included)... [facility] 12-13-2024 [facility] Telephone ([facility]) BERTA SANCHES ([id number]) 1945 [facility] Date Time Provider Department 12/13/24 DEYSI COLLAZO [facility] During your visit today, we recorded the following information about you: Alex Gonzalez 12/13/2024 9:36 AM Signed Transitional Care Management (TCM) [facility] Monitoring Program Provider Action / FYI: N/A SUMMARY: Outreach type: INITIAL OUTREACH Discharge Network Status: In-Network Discharge Source of Patient: [facility] TCM Discharge Report Patient discharged from [place] on December 12. Admitted for Acute on chronic diastolic CHF (congestive heart failure) ([facility]). 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 Normal [facility] Basic metabolic 2000 panelon 12-12-2024 Anion gap [Moles/Vol] 12 mmol/L Normal 8-15 [facility] Comment on above: Order Comment: Speci men Type: BLOOD SPECIMEN Ordering Facility: [facility] Address: [address] [place] [address] Performed By: #### 1 91239, 59209-1 #### [facility] CLIA [id number] [address] [place] [address] [place] Calcium [Mass/Vol] 8.8 mg/dL Normal 8.5-10.2 [facility] Comment on above: Order Comment: Speci men Type: BLOOD SPECIMEN Ordering Facility: [facility] Address: [address] [place] [address] Performed By: #### 1 91239, 13037-8 #### [facility] CLIA [id number] [address] [place] [address] [place] Chloride [Moles/Vol] 96 mmol/L Low 98-107 [facility] Comment on above: Order Comment: Speci men Type: BLOOD SPECIMEN Ordering Facility: [facility] Address: [address] [place] [address] Performed By: #### 1 91239, 80697-8 #### [facility] CLIA [id number] [address] [place] [address] [place] CO2 [Moles/Vol] 26 mmol/L Normal 22-30 [facility] Comment on above: Order Comment: Speci men Type: BLOOD SPECIMEN Ordering Facility: [facility] Address: [address] [place] [address] Performed By: #### 1 91239, 32356-5 #### [facility] CLIA [id number] [address] [place] [address] [place] Creatinine [Mass/Vol] 1.69 mg/dL High 0.58-0.96 [facility] Comment on above: Order Comment: Speci men Type: BLOOD SPECIMEN Ordering Facility: [facility] Address: [address] [place] [address] Performed By: #### 1 91239, 91766-3 #### [facility] CLIA [id number] [address] Creatinine and Glomerular filtration rate.predicted panel (S/P/Bld) 31 mL/min/1.73m??? Low >=60 [facility] Comment on above: Order Comment: Speci men Type: BLOOD SPECIMEN Ordering Facility: [facility] Address: [address] [place] [address] Result Comment: Mira mated Glomerular Filtration Rate [...] actual GFR. Performed By: #### 1 9123-9, 27805-2 #### [facility] CLIA [id number] [address] [place] [address] [place] Glucose [Mass/Vol] 170 mg/dL High 74-99 [facility] Comment on above: Order Comment: Annie ricci Type: BLOOD SPECIMEN Ordering Facility: [facility] Address: [address] [place] [address] Result Comment: The [place] Diabetes Association (ADA) provides guidance for cutoff [...] Standards of Medical Care in Diabetes 2016, [place] [employer] Association. Diabetes Care. 2016.39(Suppl 1). Performed By: #### 1 9123-9, 04772-6 #### [facility] CLIA [id number] [address] [place] [id number] [place] Potassium [Moles/Vol] 4.1 mmol/L Normal 3.7-5.1 [facility] Comment on above: Order Comment: Annie ricci Type: BLOOD SPECIMEN Ordering Facility: [facility] Address: [address] [id number] Performed By: #### 1 9123-9, 42284-1 #### [facility] CLIA [id number] [address] [place] Sodium [Moles/Vol] 134 mmol/L Low 136-144 [facility] Comment on above: Order Comment: Speci men Type: BLOOD SPECIMEN Ordering Facility: [facility] Address: [address] [place] [address] Performed By: #### 1 9123-9, 18019-3 #### [facility] CLIA [id number] [address] [place] [address] [place] Urea nitrogen [Mass/Vol] 47 mg/dL High 7-21 [facility] Comment on above: Order Comment: Speci men Type: BLOOD SPECIMEN Ordering Facility: [facility] Address: [address] [place] [address] Performed By: #### 1 9123-9, 29318-6 #### [facility] CLIA [id number] [address] [place] CBC panel Auto (Bld)on 12-12 Erythrocyte distribution width (RBC) [Ratio] 15.9 % High 11.5-15.0 [facility] Comment on above: Order Comment: Speci men Type: BLOOD SPECIMEN Ordering Facility: [facility] Address: [address] [place] [address] Performed By: #### 5 8410-2 #### [facility] CLIA [id number] [address] Hematocrit (Bld) [Volume fraction] 25.0 % Low 36.0-46.0 [facility] Comment on above: Order Comment: Speci men Type: BLOOD SPECIMEN Ordering Facility: [facility] Address: [address] [place] [address] Performed By: #### 5 8410-2 #### [facility] CLIA [id number] [address] [place] Hemoglobin (Bld) [Mass/Vol] 8.0 g/dL Low 11.5-15.5 [facility] Comment on above: Order Comment: Speci men Type: BLOOD SPECIMEN Ordering Facility: [facility] Address: [address] [place] [address] Performed By: #### 5 8410-2 #### [facility] CLIA [id number] [address] MCH (RBC) [Entitic mass] 28.6 pg Normal 26.0-34.0 [facility] Comment on above: Order Comment: Speci men Type: BLOOD SPECIMEN Ordering Facility: [facility] Address: [address] [place] [address] Performed By: #### 5 8410-2 #### [facility] CLIA [id number] [address] MCHC (RBC) [Mass/Vol] 32.0 g/dL Normal 30.5-36.0 [facility] Comment on above: Order Comment: Speci men Type: BLOOD SPECIMEN Ordering Facility: [facility] Address: [address] [place] [address] Performed By: #### 5 8410-2 #### [facility] CLIA [id number] [address] MCV (RBC) [Entitic vol] 89.3 fL Normal 80.0-100.[address] [facility] Comment on above: Order Comment: Speci men Type: BLOOD SPECIMEN Ordering Facility: [facility] Address: [address] [place] [address] Performed By: #### 5 8410-2 #### [facility] CLIA [id number] [address] Nucleated RBC (Bld) [#/Vol] 10*3/uL Normal <0.01 [facility] Comment on above: Order Comment: Speci men Type: BLOOD SPECIMEN Ordering Facility: [facility] Address: [address] [place] [address] Performed By: #### 5 8410-2 #### [facility] CLIA [id number] [address] Platelet mean volume (Bld) [Entitic vol] 9.9 fL Normal 9.0-12.7 [facility] Comment on above: Order Comment: Speci men Type: BLOOD SPECIMEN Ordering Facility: [facility] Address: [address] [place] [address] Performed By: #### 5 8410-2 #### [facility] CLIA [id number] [address] [place] Platelets (Bld) [#/Vol] 148 10*3/uL Low 150-400 [facility] Comment on above: Order Comment: Speci men Type: BLOOD SPECIMEN Ordering Facility: [facility] Address: [address] [place] [address] Performed By: #### 5 8410-2 #### [facility] CLIA [id number] [address] [place] [address] [place] RBC (Bld) [#/Vol] 2.80 10*6/uL Low 3.90-5.20 [facility] Comment on above: Order Comment: Speci men Type: BLOOD SPECIMEN Ordering Facility: [facility] Address: [address] [place] [address] Performed By: #### 5 8410-2 #### [facility] CLIA [id number] [address] [place] WBC (Bld) [#/Vol] 9.29 10*3/uL Normal 3.70-11.00 [facility] Comment on above: Order Comment: Speci men Type: BLOOD SPECIMEN Ordering Facility: [facility] Address: [address] [place] [address] Performed By: #### 5 8410-2 #### [facility] CLIA [id number] [address] [place] CNDSon 12-12-2024 CNDS HNO ID: [id number] Author: JUAN DIEGO KNOWLES MD Service: Hospital [...] Diego Knowles MD Primary Care Provider: Deysi Clolazo APRN.CNP My Medical Team Members: Treatment Team: Attending Provider: Juan Diego Knowles MD Consulting: Betsy Hall MD Consulting: Hemant Jimenez MD Consulting: Lars Silva DO MY CONDITION AT DISCHARGE: Stable REASON I WAS IN THE HOSPITAL: Fluid overload that improved with diuretics. You also have anemia related to taking fpc blood thinners and you got better with iron. 1. Take a higher dose of torsemide and follow up with a harvesting manager and our CHF clinic to guide [...] Surgery placed. Wednesday-Wednesday after 9 am, call cnc mill operator at [phone] [phone] and ask for the appointment line [...] results. FOLLOW-UP APPOINTMENTS ALREADY SCHEDULED WITH A [facility] PROVIDER: Future Appointments Date Time Provider Department Center 12/21/2024 9:00 AM Albin Gu, TEXT TRANSCRIBER.[facility] 01/01/2025 11:00 AM Carla Burdick MD [facility] [place] 01/10/2025 1:00 PM Deysi Collazo APRN.[facility] 02/26/2025 2:20 PM Carla Burdick MD CARDWS [...] how you (more content not included)... Normal [facility] CONSULT PROGon 12-12-2024 CONSULT PROG HNO ID: [id number] Author: BETSY HALL MD Service: Nephrology Author [...] urine creatinine (more content not included)... Normal [facility] Magnesium [Mass/Vol] 2.0 mg/dL Normal 1.7-2.3 [facility] Comment on above: Order Comment: Annie ricci Type: BLOOD SPECIMEN Ordering Facility: [facility] Address: [address] [place] [address] Performed By: #### 1 9123-9, 30448-2 #### [facility] CLIA [id number] [address] [place] [address] [place] ALBUMIN/CREATININE RATIO, UR INEon 12-11-2024 Albumin DL <= 20 mg/L (U) [Mass/Vol] 23.5 mg/L Normal [facility] Comment on above: Order Comment: Annie ricci Type: BLOOD SPECIMEN Ordering Facility: [facility] Address: [address] [place] [address] Performed By: #### 2 132-9, 2284-8 #### [facility] CLIA [id number] [address] Albumin/Creatinine (U) [Mass ratio] 76 mg/g High <30 [facility] Comment on above: Order Comment: Annie ricci Type: BLOOD SPECIMEN Ordering Facility: [facility] Address: [address] [place], [place] [address] Result Comment: Adul t Male and Female Nephrotic Criteria: <30 mg/g is considered normal to mildly increased 30-300 mg/g is considered moderately increased >300 mg/g is considered severely increased KDIGO. (2013). KDIGO 2012 Clinical Practice Guideline for the Evaluation and Management of Chronic Kidney Disease. Official Journal of the International Society of Nephrology, 3(1), 1-150. Performed By: #### 2 132-9, 2284-8 #### [facility] CLIA [id number] [address] OF [facility] ALLIED HEALTHon 12-11-2024 ALLIED HEALTH HNO ID: [id number] Author: NUNU CHATMAN RDMS Service: ? Author [...] PATIENT PRESENTS WITH AN IMPLANTABLE OR ATTACHED PVC MONITOR: N/A RADIOLOGY DEPARTMENT: Ultrasound PERIPHERAL IV DATA: Not applicable SIGNED BY: Nunu Chatman RDMS December 11, 2024 9:14 AM Normal [facility] Basic metabolic 2000 panelon 12-11-2024 Anion gap [Moles/Vol] 13 mmol/L Normal 8-15 [facility] Comment on above: Order Comment: Annie ricci Type: BLOOD SPECIMEN Ordering Facility: [facility] Address: [address] [place] [address] Performed By: #### 2 276-4, 49047-2, 68197-0, 64427-2 #### [facility] CLIA [id number] [address] [place] [address] [place] Calcium [Mass/Vol] 8.9 mg/dL Normal 8.5-10.2 [facility] Comment on above: Order Comment: Speci men Type: BLOOD SPECIMEN Ordering Facility: [facility] Address: [address] [place] [address] Performed By: #### 2 276-4, 59681-0, 34719-3, 27573-0 #### [facility] CLIA [id number] [address] [place] [address] [place] Chloride [Moles/Vol] 93 mmol/L Low 98-107 [facility] Comment on above: Order Comment: Speci men Type: BLOOD SPECIMEN Ordering Facility: [facility] Address: [address] [place] [address] Performed By: #### 2 276-4, 48304-3, 92044-0, 70037-8 #### [facility] CLIA [id number] [address] [place] [address] [place] CO2 [Moles/Vol] 24 mmol/L Normal 22-30 [facility] Comment on above: Order Comment: Speci men Type: BLOOD SPECIMEN Ordering Facility: [facility] Address: [facility] [place] [address] Performed By: #### 2 276-4, 13178-7, 06192-5, 36964-0 #### [facility] CLIA [id number] [address] [place] [address] [place] Creatinine [Mass/Vol] 1.70 mg/dL High 0.58-0.96 [facility] Comment on above: Order Comment: Speci men Type: BLOOD SPECIMEN Ordering Facility: [facility] Address: [facility] [place] [address] Performed By: #### 2 276-4, 16485-1, 80636-6, 08781-8 #### [facility] CLIA [id number] [address] [place] [address] [place] Creatinine and Glomerular filtration rate.predicted panel (S/P/Bld) 30 mL/min/1.73m??? Low >=60 [facility] Comment on above: Order Comment: Annie ricci Type: BLOOD SPECIMEN Ordering Facility: [facility] Address: [address] [place] [address] Result Comment: Mira mated Glomerular Filtration Rate [...] actual GFR. Performed By: #### 2 276-4, 68275-5, 62016-5, 89795-9 #### [facility] CLIA [id number] [address] [place] [address] [place] Glucose [Mass/Vol] 144 mg/dL High 74-99 [facility] Comment on above: Order Comment: Annie ricci Type: BLOOD SPECIMEN Ordering Facility: [facility] Address: [address] [place] [address] Result Comment: The [place] Diabetes Association (ADA) provides guidance for cutoff [...] Standards of Medical Care in Diabetes 2016, [place] [employer] Association. Diabetes Care. 2016.39(Suppl 1). Performed By: #### 2 276-4, 90068-2, 56750-1, 96657-6 #### [facility] CLIA [id number] [address] [place] [id number] [place] Potassium [Moles/Vol] 3.6 mmol/L Low 3.7-5.1 [facility] Comment on above: Order Comment: Speci men Type: BLOOD SPECIMEN Ordering Facility: [facility] Address: [address] [place] [address] Performed By: #### 2 276-4, 29634-2, 63243-9, 36429-6 #### [facility] CLIA [id number] [address] [place] [address] [place] Sodium [Moles/Vol] 130 mmol/L Low 136-144 [facility] [facility] Comment on above: Order Comment: Speci men Type: BLOOD SPECIMEN Ordering Facility: [facility] Address: [address] [place] [address] Performed By: #### 2 276-4, 79860-4, 95191-1, 91201-4 #### [facility] CLIA [id number] [address] [place] Urea nitrogen [Mass/Vol] 54 mg/dL High 7-21 [facility] Comment on above: Order Comment: Speci men Type: BLOOD SPECIMEN Ordering Facility: [facility] Address: [address] [place] [address] Performed By: #### 2 276-4, 34784-6, 86680-2, 00851-6 #### [facility] CLIA [id number] [address] STATES OF [facility] CBC panel Auto (Bld)on 12-11 Erythrocyte distribution width (RBC) [Ratio] 16.1 % High 11.5-15.0 [facility] Comment on above: Order Comment: Speci men Type: BLOOD SPECIMEN Ordering Facility: [facility] Address: [address] [place] [address] Performed By: #### 2 132-9, 8 #### [facility] CLIA [id number] [address] Hematocrit (Bld) [Volume fraction] 23.8 % Low 36.0-46.0 [facility] Comment on above: Order Comment: Speci men Type: BLOOD SPECIMEN Ordering Facility: [facility] Address: [address] [place] [address] Performed By: #### 2 132-9, 8 #### [facility] CLIA [id number] [address] [place] Hemoglobin (Bld) [Mass/Vol] 7.6 g/dL Low 11.5-15.5 [facility] Comment on above: Order Comment: Speci men Type: BLOOD SPECIMEN Ordering Facility: [facility] Address: [address] [place] [address] Performed By: #### 2 132-9, 8 #### [facility] CLIA [id number] [address] OF [facility] MCH (RBC) [Entitic mass] 28.4 pg Normal 26.0-34.0 [facility] Comment on above: Order Comment: Speci men Type: BLOOD SPECIMEN Ordering Facility: [facility] Address: [address] [place] [address] Performed By: #### 2 132-9, 8 #### [facility] CLIA [id number] [address] MCHC (RBC) [Mass/Vol] 31.9 g/dL Normal 30.5-36.0 [facility] Comment on above: Order Comment: Speci men Type: BLOOD SPECIMEN Ordering Facility: [facility] Address: [address] [place] [address] Performed By: #### 2 132-9, 8 #### [facility] CLIA [id number] [address] OF [place] MCV (RBC) [Entitic vol] 88.8 fL Normal 80.0-100.[address] [facility] Comment on above: Order Comment: Speci men Type: BLOOD SPECIMEN Ordering Facility: [facility] Address: [address] [place] [address] Performed By: #### 2 132-9, 8 #### [facility] CLIA [id number] [address] OF [facility] Nucleated RBC (Bld) [#/Vol] 10*3/uL Normal <0.01 [facility] Comment on above: Order Comment: Speci men Type: BLOOD SPECIMEN Ordering Facility: [facility] Address: [address] [place] [address] Performed By: #### 2 132-9, 2283-8 #### [facility] CLIA [id number] [address] [place] [address] [place] Platelet mean volume (Bld) [Entitic vol] 9.8 fL Normal 9.0-12.7 [facility] Comment on above: Order Comment: Speci men Type: BLOOD SPECIMEN Ordering Facility: [facility] Address: [address] [place] [address] Performed By: #### 2 132-9, 2283-8 #### [facility] CLIA [id number] [address] OF [place] Platelets (Bld) [#/Vol] 160 10*3/uL Normal 150-400 [facility] Comment on above: Order Comment: Speci men Type: BLOOD SPECIMEN Ordering Facility: [facility] Address: [address] [place] [address] Performed By: #### 2 132-9, 2283-8 #### [facility] CLIA [id number] 1000 [place] [address] [place] RBC (Bld) [#/Vol] 2.68 10*6/uL Low 3.90-5.20 [facility] Comment on above: Order Comment: Speci men Type: BLOOD SPECIMEN Ordering Facility: [facility] Address: [address] [place] [address] Performed By: #### 2 132-9, 2283-8 #### [facility] CLIA [id number] 1000 [place] [address] [place] WBC (Bld) [#/Vol] 7.37 10*3/uL Normal 3.70-11.00 [facility] Comment on above: Order Comment: Speci men Type: BLOOD SPECIMEN Ordering Facility: [facility] Address: [address] [place] [address] Performed By: #### 2 132-9, 2283-8 #### [facility] CLIA [id number] [address] [place] Connie 12-11-2024 CNPN Telephone (4CQ) BERTA SANCHES ([id number]) 1945 F [facility] Date Time Provider Department 12/11/24 DEYSI COLLAZO 4CQ During your visit today, we recorded the following information about you: Marilyn Cesar 12/11/2024 11:06 AM Signed Patient called to cancel hospital follow up due to re admission yesterday 12/10/2024 Sigifredo Rivera LPN 12/11/2024 11:15 AM Signed Pt re admitted to [facility]. GOPI Hill Christy, APRN.CNP 12/11/2024 1:06 PM Signed Noted. Deysi Collazo APRN.SOCIAL SCIENCE INSTRUCTOR Allergies As of Date: 12/11/2024 Noted Allergy [...] 02/26/2014 03/21/2022 Intracranial aneurysm [I67.1] 08/30/2015 10/05/2022 group home current use of antiarrhythmic medical*10/20/2016 09/12/2021 Prosthetic [...] [J90] 03/06 (more content not included)... 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 Lua PACEMAKER 10/2019 PART. HYSTERECTOMY W/WO RMVL OVARIES/TUBES 1973 h/o cervical cancer ovaries remain PAST SURGICAL HISTORY OF 1996 Aortic valve repair, Dr. Apodaca PAST SURGICAL HISTORY OF 2001 [address] Beltrán, [facility] PAST SURGICAL HISTORY OF 2016 [...] , 12/09/2024 t (more content not included)... [facility] CONSULT PROGon 12-11-2024 CONSULT PROG HNO ID: [id number] Author: BETSY HALL MD Service: Nephrology Author [...] kidney ultrasound and renal artery duplex Normal [facility] Creat ?Tm Ur-mCncon 12-12-19 25 Creatinine (U) [Mass/Vol] 31.1 mg/dL Normal 20.0-300.0 [facility] Comment on above: Order Comment: Speci men Type: BLOOD SPECIMEN Ordering Facility: [facility] Address: [address], [place] [address] Performed By: #### 2 132-9, 2283-8 #### [facility] CLIA [id number] [address] [place] [address] [place] Ferritin SerPl-mCncon 2024 Ferritin [Mass/Vol] 36.2 ng/mL Normal 14.7-205.1 [facility] Comment on above: Order Comment: Speci men Type: BLOOD SPECIMEN Ordering Facility: [facility] Address: [address] [place] [address] Performed By: #### 2 276-4, 79511-0, 83657-3, 12257-7 #### [facility] CLIA [id number] [address] [place] [address] [place] Folate SerPl-mCncon 12-12-19 Folate [Mass/Vol] 11.3 ng/mL Normal >4.7 [facility] Comment on above: Order Comment: Speci men Type: BLOOD SPECIMEN Ordering Facility: [facility] Address: [address] [place] [address] Performed By: #### 2 132-9, 8 #### [facility] CLIA [id number] [address] [place] [address] [place] Iron and Iron binding capaci ty panelon 12-11-2024 Iron [Mass/Vol] 17 ug/dL Low 41-186 [facility] Comment on above: Order Comment: Speci men Type: BLOOD SPECIMEN Ordering Facility: [facility] Address: [address] [place] [address] Performed By: #### 2 132-9, 8 #### [facility] CLIA [id number] [address] [place] [address] [place] Iron binding capacity [Mass/Vol] 416 ug/dL High 232-386 [facility] Comment on above: Order Comment: Speci men Type: BLOOD SPECIMEN Ordering Facility: [facility] Address: [address] [place] [address] Performed By: #### 2 132-9, 228-8 #### [facility] CLIA [id number] [address] [place] [address] [place] Iron/TIBC [Molar ratio] 4.1 % Low 15.0-57.0 [facility] [place] Comment on above: Order Comment: Kunalbecca ricci Type: BLOOD SPECIMEN Ordering Facility: [facility] Address: [address] [place] [address] Performed By: #### 2 132-9, 2284-8 #### [facility] CLIA [id number] [address] [place] Magnesium SerPl-mCncon 12-11 Magnesium [Mass/Vol] 1.8 mg/dL Normal 1.7-2.3 [facility] Comment on above: Order Comment: Kunalbecca ricci Type: BLOOD SPECIMEN Ordering Facility: [facility] Address: [address] [place] [address] Performed By: #### 2 276-4, 73831-9, 01806-4, 79467-3 #### [facility] CLIA [id number] [address] [place] NURSING PROGon 12-11-2024 NURSING PROG HNO ID: [id number] Author: BRIANNA BETANCOURT, RN Service: Nursing Author Type: Registered Nurse Type: Nursing Progress Note Filed: 12/11/2024 15:17 Note Text: PATIENT EDUCATION HEART FAILURE PATIENT NAME: Berta Sanches PATIENT LOCATION: [place] [address]/[place] [id number]- 2 SURVIVAL SKILLS: Low Sodium Diet Weight [...] Cardiology Electronically Signed By: Brianna Betancourt Normal [facility] OCCULT BLD EXAM-DIAGon 12-11 OCCULT BLD EXAM-DIAG Positive Abnormal [facility] Comment on above: Performed By: #### 1 9123-9, 08486-5 #### [facility] CLIA [id number] [address] [place] [address] [place] Prot/Creat Uron 12-11-2024 Protein/Creatinine (U) [Mass ratio] 0.26 mg/mg High <0.15 [facility] Comment on above: Order Comment: Annie ricci Type: BLOOD SPECIMEN Ordering Facility: [facility] Address: [address] [place] [address] Result Comment: Adul t Proteinuria Categories: <0.15 mg/mg is considered normal to mildly increased 0.15 - 0.50 mg/mg is considered moderately increased >0.50 mg/mg is considered severely increased KDIGO. (2013). KDIGO 2012 Clinical Practice Guideline for the Evaluation and Management of Chronic Kidney Disease. Official Journal of the International Society of Nephrology, 3(1), 1-150. Performed By: #### 2 132-9, 2284-8 #### [facility] CLIA [id number] [address] [place] Protein/Creatinine (U) [Mass ratio]on 12-11-2024 Protein (U) [Mass/Vol] 8 mg/dL Normal 0-20 [facility] Comment on above: Order Comment: Annie ricci Type: BLOOD SPECIMEN Ordering Facility: [facility] Address: [address] [place] [address] Performed By: #### 2 132-9, 2284-8 #### [facility] CLIA [id number] [address] [place] [address] [place] Sodium ?Tm Ur-sCncon 025 Sodium Unsp time (U) [Moles/Vol] 67 mmol/L Normal 14-216 [facility] Comment on above: Order Comment: Speci men Type: BLOOD SPECIMEN Ordering Facility: [facility] Address: [address] [place] [address] Performed By: #### 2 132-9, 2284-8 #### [facility] CLIA [id number] [address] [place] [address] [place] UREA NITROGEN, RANDOM URINEo n 12-11-2024 UREA NITROGEN,UR,RAN 400 mg/dL Normal 140-1500 [facility] Comment on above: Order Comment: Speci men Type: BLOOD SPECIMEN Ordering Facility: [facility] Address: [address] [place] [address] Performed By: #### 2 132-9, 4-8 #### [facility] CLIA [id number] [address] OF [facility] URINALYSIS, REFLEX MICROSCOP ICon 12-11-2024 Bilirubin Ql (U) Negative Normal Negative [facility] Comment on above: Order Comment: Speci men Type: URINE SPECIMEN Ordering Facility: [facility] Address: [address] [place] [address] Performed By: #### L [id number] #### [facility] CLIA [id number] [address] [place] Clarity (Unsp spec) Clear Normal Clear [facility] Comment on above: Order Comment: Speci men Type: URINE SPECIMEN Ordering Facility: [facility] Address: [address] [place] [address] Performed By: #### L [id number] #### [facility] CLIA [id number] [address] Color (U) Yellow Normal Yellow [facility] Comment on above: Order Comment: Speci men Type: URINE SPECIMEN Ordering Facility: [facility] Address: [address] [place] [address] Performed By: #### L [id number] #### [facility] CLIA [id number] [address] Glucose Test strip (U) [Mass/Vol] Negative Normal Negative [facility] Comment on above: Order Comment: Speci men Type: URINE SPECIMEN Ordering Facility: [facility] Address: [address] [place] [address] Performed By: #### L [id number] #### [facility] CLIA [id number] [address] [place] Hemoglobin Ql (U) Negative Normal Negative [facility] Comment on above: Order Comment: Speci men Type: URINE SPECIMEN Ordering Facility: [facility] Address: [address] [place] [address] Performed By: #### L [id number] #### [facility] CLIA [id number] [address] [place] Ketones Ql (U) Negative Normal Negative [facility] Comment on above: Order Comment: Speci men Type: URINE SPECIMEN Ordering Facility: [facility] Address: [address] [place] [address] Performed By: #### L [id number] #### [facility] CLIA [id number] [address] Leukocyte esterase Test strip Ql (U) Negative Normal Negative [facility] Comment on above: Order Comment: Speci men Type: URINE SPECIMEN Ordering Facility: [facility] Address: [address] [place] [address] Performed By: #### L [id number] #### [facility] CLIA [id number] [address] Nitrite Ql (U) Negative Normal Negative [facility] Comment on above: Order Comment: Speci men Type: URINE SPECIMEN Ordering Facility: [facility] Address: [address] [place] [address] Performed By: #### L [id number] #### [facility] CLIA [id number] [address] [place] pH (U) 6.5 [pH] Normal 5.0-8.0 [facility] Comment on above: Order Comment: Speci men Type: URINE SPECIMEN Ordering Facility: [facility] Address: [address] [place] [address] Performed By: #### L [id number] #### [facility] CLIA [id number] [address] [place] Protein (U) [Mass/Vol] Negative Normal Negative [facility] Comment on above: Order Comment: Speci men Type: URINE SPECIMEN Ordering Facility: [facility] Address: [address] [place] [address] Performed By: #### L [id number] #### [facility] CLIA [id number] [address] Specific gravity (U) [Rel density] 1.010 Normal 1.005-1.030 [facility] Comment on above: Order Comment: Speci men Type: URINE SPECIMEN Ordering Facility: [facility] Address: [address] [place] [address] Performed By: #### L [id number] #### [facility] CLIA [id number] [address] Urobilinogen Ql (U) 0.2 EU/dL Normal 0.2-1.0 EU/dL [facility] Comment on above: Order Comment: Speci men Type: URINE SPECIMEN Ordering Facility: [facility] Address: [address] [place] [address] Performed By: #### L [id number] #### [facility] CLIA [id number] [address] [place] [address] [place] US RENAL ARTERY/VEINon [...] LEFT: 60-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 Maintenance Mechanic: JAMES Transcribe Date/Time: Dec 11 2024 11:31A Dictated by : ANNETTA ALLEN DO This examination was interpreted and the report reviewed and electronically signed by: ANNETTA ALLEN DO on Dec 11 2024 11:41AM EST [id number] Normal [facility] Vit [facility] Cobalamin (Vitamin B12) [Mass/Vol] 1393 pg/mL High 232-1245 [facility] Comment on above: Order Comment: Speci men Type: BLOOD SPECIMEN Ordering Facility: [facility] Address: [address] [place] [address] Performed By: #### 2 132-9, 2284-8 #### [facility] CLIA [id number] [address] [place] [address] [place] ALLIED HEALTHon 12-10-2024 ALLIED HEALTH HNO ID: [id number] Author: SHONDA CUNNINGHAM RT(R) Service: Radiology Author [...] PATIENT PRESENTS WITH AN IMPLANTABLE OR ATTACHED PVC MONITOR: No RADIOLOGY DEPARTMENT: General X-ray: Exam(s) Completed: Chest X-Ray PERIPHERAL IV DATA: Not applicable SIGNED BY: RT Boyd(R) December 10, 2024 8:10 AM Normal [facility] CBC W Auto Differential pane l (Bld)on 12-10-2024 Basophils (Bld) [#/Vol] 0.09 10*3/uL Normal <0.11 [facility] Comment on above: Order Comment: Specbecca ricci Type: BLOOD SPECIMEN Ordering Facility: [facility] Address: [address] [place] [address] Performed By: #### 5 7021-8 #### [facility] CLIA [id number] [address] [place] [address] [place] Basophils/100 WBC (Bld) 1.1 % Normal [facility] Comment on above: Order Comment: Kunali men Type: BLOOD SPECIMEN Ordering Facility: [facility] Address: [address] [place] [address] Performed By: #### 5 7021-8 #### [facility] CLIA [id number] [address] [place] [address] [place] Differential cell count method Nom (Bld) Auto Normal [facility] Comment on above: Order Comment: Speci men Type: BLOOD SPECIMEN Ordering Facility: [facility] Address: [address] [place] [address] Performed By: #### 5 7021-8 #### [facility] CLIA [id number] [address] [place] [address] [place] Eosinophils (Bld) [#/Vol] 0.21 10*3/uL Normal <0.46 [facility] Comment on above: Order Comment: Speci men Type: BLOOD SPECIMEN Ordering Facility: [facility] Address: [address] [place] [address] Performed By: #### 5 7021-8 #### [facility] CLIA [id number] [address] Eosinophils/100 WBC (Bld) 2.6 % Normal [facility] Comment on above: Order Comment: Speci men Type: BLOOD SPECIMEN Ordering Facility: [facility] Address: [address] [place] [address] Performed By: #### 5 7021-8 #### [facility] CLIA [id number] [address] [place] Erythrocyte distribution width (RBC) [Ratio] 16.2 % High 11.5-15.0 [facility] Comment on above: Order Comment: Speci men Type: BLOOD SPECIMEN Ordering Facility: [facility] Address: [address] [place] [address] Performed By: #### 5 7021-8 #### [facility] CLIA [id number] [address] [place] Hematocrit (Bld) [Volume fraction] 26.5 % Low 36.0-46.0 [facility] Comment on above: Order Comment: Speci men Type: BLOOD SPECIMEN Ordering Facility: [facility] Address: [address] [place] [address] Performed By: #### 5 7021-8 #### [facility] CLIA [id number] [address] [place] [address] [place] Hemoglobin (Bld) [Mass/Vol] 8.2 g/dL Low 11.5-15.5 [facility] Comment on above: Order Comment: Speci men Type: BLOOD SPECIMEN Ordering Facility: [facility] Address: [address] [place] [address] Performed By: #### 5 7021-8 #### [facility] CLIA [id number] [address] Immature granulocytes (Bld) [#/Vol] 0.03 10*3/uL Normal <0.10 [facility] Comment on above: Order Comment: Speci men Type: BLOOD SPECIMEN Ordering Facility: [facility] Address: [address] [place] [address] Performed By: #### 5 7021-8 #### [facility] CLIA [id number] [address] Immature granulocytes/100 WBC (Bld) 0.4 % Normal [facility] Comment on above: Order Comment: Speci men Type: BLOOD SPECIMEN Ordering Facility: [facility] Address: [address] [place] [address] Performed By: #### 5 7021-8 #### [facility] CLIA [id number] [address] [place] Lymphocytes (Bld) [#/Vol] 2.52 10*3/uL Normal 1.00-4.00 [facility] Comment on above: Order Comment: Speci men Type: BLOOD SPECIMEN Ordering Facility: [facility] Address: [address] [place] [address] Performed By: #### 5 7021-8 #### [facility] CLIA [id number] [address] Lymphocytes/100 WBC (Bld) 30.7 % Normal [facility] Comment on above: Order Comment: Speci men Type: BLOOD SPECIMEN Ordering Facility: [facility] Address: [address] [place] [address] Performed By: #### 5 7021-8 #### [facility] CLIA [id number] [address] [place] [address] [place] MCH (RBC) [Entitic mass] 28.5 pg Normal 26.0-34.0 [facility] Comment on above: Order Comment: Speci men Type: BLOOD SPECIMEN Ordering Facility: [facility] Address: [address] [place] [address] Performed By: #### 5 7021-8 #### [facility] CLIA [id number] [address] [place] MCHC (RBC) [Mass/Vol] 30.9 g/dL Normal 30.5-36.0 [facility] Comment on above: Order Comment: Speci men Type: BLOOD SPECIMEN Ordering Facility: [facility] Address: [address] [place] [address] Performed By: #### 5 7021-8 #### [facility] CLIA [id number] [address] MCV (RBC) [Entitic vol] 92.0 fL Normal 80.0-100.[address] [facility] Comment on above: Order Comment: Speci men Type: BLOOD SPECIMEN Ordering Facility: [facility] Address: [address] [place] [address] Performed By: #### 5 7021-8 #### [facility] CLIA [id number] [address] [place] Monocytes (Bld) [#/Vol] 1.19 10*3/uL High <0.87 [facility] Comment on above: Order Comment: Speci men Type: BLOOD SPECIMEN Ordering Facility: [facility] Address: [address] [place] [address] Performed By: #### 5 7021-8 #### [facility] CLIA [id number] [address] Monocytes/100 WBC (Bld) 14.5 % Normal [facility] Comment on above: Order Comment: Speci men Type: BLOOD SPECIMEN Ordering Facility: [facility] Address: [address] [place] [address] Performed By: #### 5 7021-8 #### [facility] CLIA [id number] [address] [place] Neutrophils (Bld) [#/Vol] 4.17 10*3/uL Normal 1.45-7.50 [facility] Comment on above: Order Comment: Speci men Type: BLOOD SPECIMEN Ordering Facility: [facility] Address: [address] [place] [address] Performed By: #### 5 7021-8 #### [facility] CLIA [id number] [address] [place] Neutrophils/100 WBC (Bld) 50.7 % Normal [facility] Comment on above: Order Comment: Speci men Type: BLOOD SPECIMEN Ordering Facility: [facility] Address: [address] [place] [address] Performed By: #### 5 7021-8 #### [facility] CLIA [id number] [address] Nucleated RBC (Bld) [#/Vol] 10*3/uL Normal <0.01 [facility] Comment on above: Order Comment: Speci men Type: BLOOD SPECIMEN Ordering Facility: [facility] Address: [address] [place] [address] Performed By: #### 5 7021-8 #### [facility] CLIA [id number] [address] Nucleated RBC/100 WBC (Bld) [Ratio] 0.0 /100 WBC Normal [facility] Comment on above: Order Comment: Speci men Type: BLOOD SPECIMEN Ordering Facility: [facility] Address: [address] [place] [address] Performed By: #### 5 7021-8 #### [facility] CLIA [id number] [address] OF [place] Platelet mean volume (Bld) [Entitic vol] 10.5 fL Normal 9.0-12.7 [facility] Comment on above: Order Comment: Speci men Type: BLOOD SPECIMEN Ordering Facility: [facility] Address: [address] [place] [address] Performed By: #### 5 7021-8 #### [facility] CLIA [id number] 1000 [place] [address] [place] Platelets (Bld) [#/Vol] 168 10*3/uL Normal 150-400 [facility] Comment on above: Order Comment: Speci men Type: BLOOD SPECIMEN Ordering Facility: [facility] Address: [address] [place] [address] Performed By: #### 5 7021-8 #### [facility] CLIA [id number] [address] OF [facility] RBC (Bld) [#/Vol] 2.88 10*6/uL Low 3.90-5.20 [facility] Comment on above: Order Comment: Speci men Type: BLOOD SPECIMEN Ordering Facility: [facility] Address: [address] [place] [address] Performed By: #### 5 7021-8 #### [facility] CLIA [id number] [address] WBC (Bld) [#/Vol] 8.21 10*3/uL Normal 3.70-11.00 [facility] Comment on above: Order Comment: Speci men Type: BLOOD SPECIMEN Ordering Facility: [facility] Address: [address] [place] [address] Performed By: #### 5 7021-8 #### [facility] CLIA [id number] [address] CONSULTon 12-10-2024 CONSULT HNO ID: [id number] Author: BETSY HALL MD Service: Nephrology Author Type: Physician Type: Consults Filed: 12/10/2024 19:42 Note Text: INPATIENT INITIAL NEPHROLOGY CONSULT SERVICE DATE: 12/10/2024 SERVICE TIME: 7:30 PM REASON FOR CONSULT: MONIQUE/ CRS REQUESTING PHYSICIAN: Dr Tuttle PRIMARY CARE PHYSICIAN: Deysi Collazo APRN.SOCIAL SCIENCE INSTRUCTOR CC: SOB and edema Subjective Ms. 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 Lua PACEMAKER 10/2019 PART. HYSTERECTOMY W/WO RMVL OVARIES/TUBES 1974 h/o cervical cancer ovaries remain PAST SURGICAL HISTORY OF 1996 Aortic valve repair, Dr. Apodaca PAST SURGICAL HISTORY OF 2001 [address] Beltrán, [facility] PAST SURGICAL HISTORY OF 2015 [...] red win (more content not included)... Normal [facility] Comprehensive metabolic 2000 panelon 12-10-2024 Albumin [Mass/Vol] 3.8 g/dL Low 3.9-4.9 [facility] Comment on above: Order Comment: Speci men Type: URINE SPECIMEN Ordering Facility: [facility] Address: [address] [place] [address] Performed By: #### L [id number] #### [facility] CLIA [id number] [address] [place] [address] [place] ALP [Catalytic activity/Vol] 139 U/L High 34-123 [facility] Comment on above: Order Comment: Speci men Type: URINE SPECIMEN Ordering Facility: [facility] Address: [address] [place] [address] Performed By: #### L [id number] #### [facility] CLIA [id number] [address] [place] [address] [place] ALT [Catalytic activity/Vol] 12 U/L Normal 7-38 [facility] Comment on above: Order Comment: Speci men Type: URINE SPECIMEN Ordering Facility: [facility] Address: [address] [place] [address] Performed By: #### L [id number] #### [facility] CLIA [id number] [address] [place] [address] [place] Anion gap [Moles/Vol] 13 mmol/L Normal 8-15 [facility] Comment on above: Order Comment: Speci men Type: URINE SPECIMEN Ordering Facility: [facility] Address: [address] [place] [address] Performed By: #### L [id number] #### [facility] CLIA [id number] [address] [place] [address] [place] AST [Catalytic activity/Vol] 27 U/L Normal 13-35 [facility] Comment on above: Order Comment: Speci men Type: URINE SPECIMEN Ordering Facility: [facility] Address: [address] [place] [address] Performed By: #### L [id number] #### [facility] CLIA [id number] [address] [place] [address] [place] Bilirubin [Mass/Vol] 0.8 mg/dL Normal 0.2-1.3 [facility] Comment on above: Order Comment: Speci men Type: URINE SPECIMEN Ordering Facility: [facility] Address: [address] [place] [address] Performed By: #### L [id number] #### [facility] CLIA [id number] [address] [place] [address] [place] Calcium [Mass/Vol] 9.0 mg/dL Normal 8.5-10.2 [facility] Comment on above: Order Comment: Speci men Type: URINE SPECIMEN Ordering Facility: [facility] Address: [address] [place] [address] Performed By: #### L [id number] #### [facility] CLIA [id number] [address] STATES OF [facility] Chloride [Moles/Vol] 98 mmol/L Normal 98-107 [facility] Comment on above: Order Comment: Speci men Type: URINE SPECIMEN Ordering Facility: [facility] Address: [address] [place] [address] Performed By: #### L [id number] #### [facility] CLIA [id number] [address] [place] [address] [place] CO2 [Moles/Vol] 20 mmol/L Low 22-30 [facility] Comment on above: Order Comment: Speci men Type: URINE SPECIMEN Ordering Facility: [facility] Address: [address] [place] [address] Performed By: #### L [id number] #### [facility] CLIA [id number] [address] [place] [address] [place] Creatinine [Mass/Vol] 1.90 mg/dL High 0.58-0.96 [facility] Comment on above: Order Comment: Speci men Type: URINE SPECIMEN Ordering Facility: [facility] Address: [address] [place] [address] Performed By: #### L [id number] #### [facility] CLIA [id number] [address] Creatinine and Glomerular filtration rate.predicted panel (S/P/Bld) 27 mL/min/1.73m??? Low >=60 [facility] Comment on above: Order Comment: Speci men Type: URINE SPECIMEN Ordering Facility: [facility] Address: [address] [place] [address] Result Comment: Mira mated Glomerular Filtration Rate [...] reflect actual GFR. Performed By: #### L [id number] #### [facility] CLIA [id number] [address] [place] [address] [place] Glucose [Mass/Vol] 140 mg/dL High 74-99 [facility] Comment on above: Order Comment: Speci men Type: URINE SPECIMEN Ordering Facility: [facility] Address: [address] [place] [address] Result Comment: The [place] Diabetes Association (ADA) provides guidance for cutoff [...] Standards of Medical Care in Diabetes 2016, [place] [employer]. Diabetes Care. 2016.39(Suppl 1). Performed By: #### L [id number] #### [facility] CLIA [id number] [address] [place] [address] [place] Potassium [Moles/Vol] 4.2 mmol/L Normal 3.7-5.1 [facility] Comment on above: Order Comment: Speci men Type: URINE SPECIMEN Ordering Facility: [facility] Address: [address] [place] [address] Performed By: #### L [id number] #### [facility] CLIA [id number] [address] [place] [address] [place] Protein [Mass/Vol] 7.3 g/dL Normal 6.3-8.0 [facility] Comment on above: Order Comment: Speci men Type: URINE SPECIMEN Ordering Facility: [facility] Address: [address] [place] [address] Performed By: #### L [id number] #### [facility] CLIA [id number] 1000 [place] [address] [place] Sodium [Moles/Vol] 131 mmol/L Low 136-144 [facility] Comment on above: Order Comment: Speci men Type: URINE SPECIMEN Ordering Facility: [facility] Address: [address] [id number] Performed By: #### L [id number] #### [facility] CLIA [id number] [address] [place] [address] [place] Urea nitrogen [Mass/Vol] 63 mg/dL High 7-21 [facility] Comment on above: Order Comment: Speci men Type: URINE SPECIMEN Ordering Facility: [facility] Address: [address] [place] [address] Performed By: #### L [id number] #### [facility] CLIA [id number] [address] OF [facility] ECG COMPLETEon 12-10-2024 ECG COMPLETE Ventricular Rate : 7 9 BPM QRS Duration : 118 ms Q-T Interval : 418 ms QTC Calculation(Bazett) : 479 ms Calculated R [employer] : -30 degrees Calculated T [employer] : 161 degrees ATRIAL FIBRILLATION WITH PREMATURE VENTRICULAR OR ABERRANTLY CONDUCTED COMPLEXES LEFT AXIS DEVIATION LEFT VENTRICULAR HYPERTROPHY WITH QRS WIDENING ( R in aVL , Cana product ) T WAVE ABNORMALITY, CONSIDER LATERAL ISCHEMIA ABNORMAL ECG No Stemi Confirmed by ANSON MANRIQUE DO ([id number]) on 12/10/2024 3:12:25 PM NAME : BERTA SANCHES PID : [id number] : 1945 Gender : Female Race : ORD : [id number] Procedure Date : Dec 10 2024 07:55:48 Edit Date : Dec 10 2024 15:12:31 Diagnosis: ATRIAL FIBRILLATION WITH PREMATURE VENTRICULAR OR ABERRANTLY CONDUCTED COMPLEXES LEFT AXIS DEVIATION LEFT VENTRICULAR HYPERTROPHY WITH QRS WIDENING ( R in aVL , Landen product ) T WAVE ABNORMALITY, CONSIDER LATERAL ISCHEMIA ABNORMAL ECG No Stemi Confirmed by ANSON MANRIQUE DO ([id number]) on 12/10/2024 3:12:25 PM Test Reason : Chest Pain Location : 1 : ER ED Overread By : ANSON MANRIQUE DO Edited By : ANSON MANRIQUE DO Referred By : , Acquired by : [id number], Normal [facility] ED NOTEon 12-10-2024 ED NOTE HNO ID: [id number] Author: ANNETTE, RODERICK, RN Service: ? 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 Lua PACEMAKER 10/2019 PART. HYSTERECTOMY W/WO RMVL OVARIES/TUBES 1973 h/o cervical cancer ovaries remain PAST SURGICAL HISTORY OF 1996 Aortic valve repair, Dr. Apodaca PAST SURGICAL HISTORY OF 2001 [address] Beltrán, [facility] PAST SURGICAL HISTORY OF 2015 [...] Weight H (more content not included)... Normal [facility] HIGH SENSITIVITY TROPONIN T (INITIAL)on 12-10-2024 Troponin T.cardiac High sensitivity method [Mass/Vol] 72 ng/L High <[address] [place] [address] Comment on above: Order Comment: Speci men Type: URINE SPECIMEN Ordering Facility: [facility] Address: [address] [place] [address] Performed By: #### L [id number] #### [facility] CLIA [id number] [address] HIGH SENSITIVITY TROPONIN T (SECOND)on 12-10-2024 Troponin T.cardiac High sensitivity method [Mass/Vol] 66 ng/L High <[address] [place] [address] Comment on above: Order Comment: Speci men Type: BLOOD SPECIMEN Ordering Facility: [facility] Address: [address] [place] [address] Performed By: #### 2 132-9, 2284-8 #### [facility] CLIA [id number] [address] HIGH SENSITIVITY TROPONIN T (THIRD) 3 HRS AFTER INITIALon 12-10-2024 Troponin T.cardiac High sensitivity method [Mass/Vol] 63 ng/L High <[address] [place] [address] Comment on above: Order Comment: Speci men Type: BLOOD SPECIMEN Ordering Facility: [facility] Address: [address] [place] [address] Performed By: #### 2 132-9, 2284-8 #### [facility] CLIA [id number] [address] [place] HISTORY PHYSICALon HISTORY PHYSICAL HNO ID: [id number] Author: JUAN DIEGO KNOWLES MD Service: Hospital Medicine Author Type: Physician Type: H&P Filed: 12/10/2024 13:50 Note Text: HISTORY AND PHYSICAL EXAMINATION PRIMARY CARE PHYSICIAN: Deysi Collazo APRN.SOCIAL SCIENCE INSTRUCTOR HPI: 79 yo woman with hx of 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 Lua PACEMAKER 10/2019 PART. HYSTERECTOMY W/WO RMVL OVARIES/TUBES 1974 h/o cervical cancer ovaries remain PAST SURGICAL HISTORY OF 1996 Aortic valve repair, Dr. Apodaca PAST SURGICAL HISTORY OF 2001 [address] Beltrán, [facility] PAST SURGICAL HISTORY OF 2016 [...] progressive SO (more content not included)... Normal [facility] Magnesium [facility] 12-10 Magnesium [Mass/Vol] 1.9 mg/dL Normal 1.7-2.3 [facility] Comment on above: Order Comment: Speci men Type: URINE SPECIMEN Ordering Facility: [facility] Address: [address] [place] [address] Performed By: #### L [id number] #### [facility] CLIA [id number] [address] [place] NT-proBNP [facility] 12-10 Natriuretic peptide.B prohormone N-Terminal [Mass/Vol] 29585 pg/mL High <450 [facility] Comment on above: Order Comment: Speci men Type: URINE SPECIMEN Ordering Facility: [facility] Address: [address] [place] [address] Performed By: #### L [id number] #### [facility] CLIA [id number] [address] [place] XR CHEST 1V [...] lungs. Cardiomegaly/enlargeme nt of the cardiac silhouette. Maintenance Mechanic: PSCB Transcribe Date/Time: Dec 10 2024 8:28A Dictated by : KIERSTEN MONTENEGRO MD This examination was interpreted and the report reviewed and electronically signed by: KIERSTEN MONTENEGRO MD on Dec 10 2024 8:31AM EST [id number] Normal [facility] Basic metabolic 2000 panelon 12-01-2024 Anion gap [Moles/Vol] 14 mmol/L Normal 8-15 [facility] Comment on above: Order Comment: Annie ricci Type: BLOOD SPECIMEN Ordering Facility: [facility] Address: [address] [place] [address] Performed By: #### 2 4331-1 #### [facility] CLIA [id number] [address] [place] [address] [place] [id number] [address] [place] [address] [place] #### 74764-5 #### [facility] CLIA [id number] [address] [place] [address] [place] Calcium [Mass/Vol] 9.5 mg/dL Normal 8.5-10.2 [facility] Comment on above: Order Comment: Annie ricci Type: BLOOD SPECIMEN Ordering Facility: [facility] Address: [address] [place] [address] Performed By: #### 2 4331-1 #### [facility] CLIA [id number] [address] [place] [address] [place] [facility] [id number] [address] [place] [address] [place] #### 35632-9 #### [facility] CLIA [id number] [address] [place] [address] [place] Chloride [Moles/Vol] 97 mmol/L Low 98-107 [facility] Comment on above: Order Comment: Speci men Type: BLOOD SPECIMEN Ordering Facility: [facility] Address: [address] [place] [address] Performed By: #### 2 4331-1 #### [facility] CLIA [id number] [address] [place] [address] [place] [facility] CLIA [id number] [address] [place] [address] [place] #### 18943-9 #### [facility] CLIA [id number] [address] [place] [address] [place] CO2 [Moles/Vol] 22 mmol/L Normal 22-30 [facility] Comment on above: Order Comment: Speci men Type: BLOOD SPECIMEN Ordering Facility: [facility] Address: [address] [place] [address] Performed By: #### 2 4331-1 #### [facility] CLIA [id number] [address] [place] [address] [place] [facility] CLIA [id number] [address] [place] [address] [place] #### 51022-7 #### [facility] CLIA [id number] [address] [place] [address] [place] Creatinine [Mass/Vol] 1.79 mg/dL High 0.58-0.96 [facility] Comment on above: Order Comment: Speci men Type: BLOOD SPECIMEN Ordering Facility: [facility] Address: [address] [place] [address] Performed By: #### 2 4331-1 #### [facility] CLIA [id number] [address] [place] [address] [place] [facility] CLIA [id number] [address] [place] [address] [place] #### 70515-1 #### [facility] CLIA [id number] [address] [place] [address] [place] Creatinine and Glomerular filtration rate.predicted panel (S/P/Bld) 29 mL/min/1.73m??? Low >=60 [facility] Comment on above: Order Comment: Speci men Type: BLOOD SPECIMEN Ordering Facility: [facility] Address: [address] [place] [address] Result Comment: Mira mated Glomerular Filtration Rate [...] GFR. Performed By: #### 2 4331-1 #### [facility] CLIA [id number] [address] [place] [address] [place] [facility] [id number] [address] [place] [address] [place] #### 31004-9 #### [facility] CLIA [id number] [address] [place] [address] [place] Glucose [Mass/Vol] 151 mg/dL High 74-99 [facility] Comment on above: Order Comment: Speci men Type: BLOOD SPECIMEN Ordering Facility: [facility] Address: [address] [place] [address] Result Comment: The [place] Diabetes Association (ADA) provides guidance for cutoff [...] Standards of Medical Care in Diabetes 2016, [place] [employer]. Diabetes Care. 2016.39(Suppl 1). Performed By: #### 2 4331-1 #### [facility] CLIA [id number] [address] [place] [address] [place] [facility] [id number] [place] [address] [place] #### 11344-7 #### [facility] CLIA [id number] [address] [place] [address] [place] Potassium [Moles/Vol] 4.2 mmol/L Normal 3.7-5.1 [facility] Comment on above: Order Comment: Speci men Type: BLOOD SPECIMEN Ordering Facility: [facility] Address: [address] [place] [address] Performed By: #### 2 4331-1 #### [facility] CLIA [id number] [address] [place] [address] [place] [facility] [id number] [address] [place] [address] [place] #### 73067-9 #### [facility] CLIA [id number] [address] [place] [address] [place] Sodium [Moles/Vol] 133 mmol/L Low 136-144 [facility] Comment on above: Order Comment: Speci men Type: BLOOD SPECIMEN Ordering Facility: [facility] Address: [address] [place], [place] [address] Performed By: #### 2 4331-1 #### [facility] CLIA [id number] [address] [place] [address] [place] [facility] CLIA [id number] [address] [place] [address] [place] #### 44723-3 #### [facility] CLIA [id number] [address] [place] [address] [place] Urea nitrogen [Mass/Vol] 37 mg/dL High 7-21 [facility] Comment on above: Order Comment: Speci men Type: BLOOD SPECIMEN Ordering Facility: [facility] Address: [address] [place] [address] Performed By: #### 2 4331-1 #### [facility] CLIA [id number] [address] [place] [address] [place] [facility] CLIA [id number] [address] [place] [address] [place] #### 75080-5 #### [facility] CLIA [id number] [address] [place] [address] [place] NT-proBNP [facility] 12-01 Natriuretic peptide.B prohormone N-Terminal [Mass/Vol] 89774 pg/mL High <450 [facility] Comment on above: Order Comment: Speci men Type: BLOOD SPECIMEN Ordering Facility: [facility] Address: [address] [place] [address] Performed By: #### 3 3762-6 #### [facility] CLIA [id number] [address] [place] [address] [place] Basic metabolic 2000 panelon 11-20-2024 Anion gap [Moles/Vol] 19 mmol/L High 8-15 [facility] Comment on above: Order Comment: Speci men Type: BLOOD SPECIMEN Ordering Facility: [facility] Address: [address] [place] [address] Performed By: #### 3 3762-6 #### [facility] CLIA [id number] [address] [place], [place] [address] [place] Calcium [Mass/Vol] 9.5 mg/dL Normal 8.5-10.2 [facility] Comment on above: Order Comment: Speci men Type: BLOOD SPECIMEN Ordering Facility: [facility] Address: [address] [place] [address] Performed By: #### 3 3762-6 #### [facility] CLIA [id number] [address] [place] [address] [place] Chloride [Moles/Vol] 98 mmol/L Normal 98-107 [facility] Comment on above: Order Comment: Speci men Type: BLOOD SPECIMEN Ordering Facility: [facility] Address: [address] [place] [address] Performed By: #### 3 3762-6 #### [facility] CLIA [id number] [address] [place] [address] [place] CO2 [Moles/Vol] 18 mmol/L Low 22-30 [facility] Comment on above: Order Comment: Speci men Type: BLOOD SPECIMEN Ordering Facility: [facility] Address: [address] [place], [place] [address] Performed By: #### 3 3762-6 #### [facility] CLIA [id number] [address] [place], [place] [address] [place] Creatinine [Mass/Vol] 1.70 mg/dL High 0.58-0.96 [facility] Comment on above: Order Comment: Speci men Type: BLOOD SPECIMEN Ordering Facility: [facility] Address: [address] [place], [place] [address] Performed By: #### 3 3762-6 #### [facility] CLIA [id number] [address] [place] [address] [place] Creatinine and Glomerular filtration rate.predicted panel (S/P/Bld) 30 mL/min/1.73m??? Low >=60 [facility] Comment on above: Order Comment: Annie ricci Type: BLOOD SPECIMEN Ordering Facility: [facility] Address: [address] [place] [address] Result Comment: Mira mated Glomerular Filtration Rate [...] GFR. Performed By: #### 3 3762-6 #### [facility] CLIA [id number] [address] [place] [address] [place] Glucose [Mass/Vol] 150 mg/dL High 74-99 [facility] Comment on above: Order Comment: Annie ricci Type: BLOOD SPECIMEN Ordering Facility: [facility] Address: [address] [place] [address] Result Comment: The [place] Diabetes Association (ADA) provides guidance for cutoff [...] Standards of Medical Care in Diabetes 2016, [place] Diabetes Association. Diabetes Care. 2016.39(Suppl 1). Performed By: #### 3 3762-6 #### [facility] CLIA [id number] [address] [place], [place] [address] [place] Potassium [Moles/Vol] 4.6 mmol/L Normal 3.7-5.1 [facility] Comment on above: Order Comment: Speci men Type: BLOOD SPECIMEN Ordering Facility: [facility] Address: [address] [place] [address] Performed By: #### 3 3762-6 #### [facility] CLIA [id number] [address] [place] [address] [place] Sodium [Moles/Vol] 135 mmol/L Low 136-144 [facility] Comment on above: Order Comment: Speci men Type: BLOOD SPECIMEN Ordering Facility: [facility] Address: [address] [place] [address] Performed By: #### 3 3762-6 #### [facility] CLIA [id number] [address] [place] [address] [place] Urea nitrogen [Mass/Vol] 37 mg/dL High 7-21 [facility] Comment on above: Order Comment: Speci men Type: BLOOD SPECIMEN Ordering Facility: [facility] Address: [address] [place] [address] Performed By: #### 3 3762-6 #### [facility] CLIA [id number] [address] [place] [address] [place] CNOVon 11-20-2024 CNOV Office Visit (JOHNNY ) BERTA SANCHES ([id number]) 1945 F [place] Date Time Provider Department 11/20/24 8:00 AM CARLA BURDICK During your visit today, we recorded the following information about you: Pulse Respiration Blood pressure Weight 84/minute 12/minute 154/62 65.2 kg Height 1.575 m Carla Burdick MD 11/20/2024 8:50 AM Signed [facility] SECTION [facility] REGIONAL CARDIOLOGY Cardiology ([facility]) [address] [facility] [id number] OUTPATIENT VISIT DATE PRIMARY CARE PHYSICIAN: Gerard Le [address] [place] [address] HISTORY OF PRESENT ILLNESS: Ms. 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 Lua PACEMAKER 10/2019 PART. HYSTERECTOMY W/WO RMVL OVARIES/TUBES 1974 h/o cervical cancer ovaries remain PAST SURGICAL HISTORY OF 1996 Aortic valve repair, Dr. Apodaca PAST SURGICAL HISTORY OF 2001 [address] Beltrán, [facility] PAST SURGICAL HISTORY OF 2016 [...] Hypotension MEDICATIONS: (more content not included)... Normal [facility] NT-proBNP [facility] 11-20 Natriuretic peptide.B prohormone N-Terminal [Mass/Vol] 14701 pg/mL High <450 [facility] Comment on above: Order Comment: Speci men Type: BLOOD SPECIMEN Ordering Facility: [facility] Address: [address] [place] [address] Performed By: #### 3 3762-6 #### [facility] CLIA [id number] [address] [place] [address] [facility] CNPNon 11-14-2024 CNPN Telephone (CARDWS) BERTA SANCHES ([id number]) 1945 F [facility] Date Time Provider Department 11/14/24 [...] on Wednesday when I am there at [place]. Will plan to repeat blood work at [...] 02/26/2014 03/21/2022 Intracranial aneurysm [I67.1] 08/30/2015 10/05/2022 group home current use of antiarrhythmic medical*10/20/2016 09/12/2021 Prosthetic [...] Colovesical f (more content not included)... Normal [facility] Basic metabolic 2000 panelon 11-13-2024 Anion gap [Moles/Vol] 11 mmol/L Normal 8-15 [facility] Comment on above: Order Comment: Speci men Type: BLOOD SPECIMEN Ordering Facility: [facility] Address: [address] [place] [address] Performed By: #### 2 4331-1 #### [facility] CLIA [id number] [address] [place] [address] [place] [id number] [address] [place] [address] [place] #### 59294-2 #### [facility] CLIA [id number] [address] [place] [address] [place] Calcium [Mass/Vol] 9.3 mg/dL Normal 8.5-10.2 [facility] Comment on above: Order Comment: Speci men Type: BLOOD SPECIMEN Ordering Facility: [facility] Address: [address] [place] [address] Performed By: #### 2 4331-1 #### [facility] CLIA [id number] [address] [place] [address] [place] [facility] CLIA [id number] [address] [place] [address] [place] #### 77130-9 #### [facility] CLIA [id number] [address] [place] [address] [place] Chloride [Moles/Vol] 98 mmol/L Normal 98-107 [facility] Comment on above: Order Comment: Speci men Type: BLOOD SPECIMEN Ordering Facility: [facility] Address: [address] [place] [address] Performed By: #### 2 4331-1 #### [facility] CLIA [id number] [address] [place], [place] [address] [place] [facility] CLIA [id number] [address] [place] [address] [place] #### 38036-5 #### [facility] CLIA [id number] [address] [place] [address] [place] CO2 [Moles/Vol] 26 mmol/L Normal 22-30 [facility] Comment on above: Order Comment: Speci men Type: BLOOD SPECIMEN Ordering Facility: [facility] Address: [address] [place] [id number] Performed By: #### 2 4331-1 #### [facility] CLIA [id number] [address] [place] [address] [place] [facility] CLIA [id number] [address] [place] [address] [place] #### 21301-9 #### [facility] CLIA [id number] [address] [place], [place] [address] [place] Creatinine [Mass/Vol] 1.82 mg/dL High 0.58-0.96 [facility] Comment on above: Order Comment: Speci men Type: BLOOD SPECIMEN Ordering Facility: [facility] Address: [address] [place] [address] Performed By: #### 2 4331-1 #### [facility] CLIA [id number] [address] [place], [place] [address] [place] [facility] CLIA [id number] [address] [place] [address] [place] #### 41636-2 #### [facility] CLIA [id number] [address] [place] [address] [place] Creatinine and Glomerular filtration rate.predicted panel (S/P/Bld) 28 mL/min/1.73m??? Low >=60 [facility] Comment on above: Order Comment: Annie ricci Type: BLOOD SPECIMEN Ordering Facility: [facility] Address: [address] [place] [address] Result Comment: Mira mated Glomerular Filtration Rate [...] GFR. Performed By: #### 2 4331-1 #### [facility] CLIA [id number] [address] [place] [address] [place] [facility] CLIA [id number] [address] [place] [address] [place] #### 01619-2 #### [facility] CLIA [id number] [address] [place] [address] [place] Glucose [Mass/Vol] 127 mg/dL High 74-99 [facility] Comment on above: Order Comment: Annie ricci Type: BLOOD SPECIMEN Ordering Facility: [facility] Address: [address] [place] [address] Result Comment: The [place] Diabetes Association (ADA) provides guidance for cutoff [...] Standards of Medical Care in Diabetes 2016, [place] Diabetes Association. Diabetes Care. 2016.39(Suppl 1). Performed By: #### 2 4331-1 #### [facility] CLIA [id number] [address] [place] [address] [place] [facility] [id number] [address] [place] [address] [place] #### 94577-6 #### [facility] CLIA [id number] [address] [place] [address] [place] Potassium [Moles/Vol] 4.0 mmol/L Normal 3.7-5.1 [facility] Comment on above: Order Comment: Speci men Type: BLOOD SPECIMEN Ordering Facility: [facility] Address: [address] [place] [address] Performed By: #### 2 4331-1 #### [facility] CLIA [id number] [address] [place] [address] [place] [facility] [id number] [address] [place] [address] [place] #### 48813-4 #### [facility] CLIA [id number] [address] [place] [address] [place] Sodium [Moles/Vol] 135 mmol/L Low 136-144 [facility] Comment on above: Order Comment: Speci men Type: BLOOD SPECIMEN Ordering Facility: [facility] Address: [address] [place] [address] Performed By: #### 2 4331-1 #### [facility] CLIA [id number] [address] [place] [address] [place] [facility] [id number] [address] [place] [address] [place] #### 28771-0 #### [facility] CLIA [id number] [address] [place] [address] [place] Urea nitrogen [Mass/Vol] 41 mg/dL High 7-21 [facility] Comment on above: Order Comment: Speci men Type: BLOOD SPECIMEN Ordering Facility: [facility] Address: [address] [place] [address] Performed By: #### 2 4331-1 #### [facility] CLIA [id number] [address] [place] [address] [place] [facility] [id number] [address] [place] [address] [place] #### 89323-3 #### [facility] CLIA [id number] [address] [place] [address] [place] NT-proBNP [facility] 11-13 Natriuretic peptide.B prohormone N-Terminal [Mass/Vol] 36898 pg/mL High <450 [facility] Comment on above: Order Comment: Speci men Type: BLOOD SPECIMEN Ordering Facility: [facility] Address: [address] [place] [address] Performed By: #### 2 4331-1 #### [facility] CLIA [id number] [address] [place] [address] [place] [facility] [id number] [address] [place] [address] [place] #### 09199-9 #### [facility] CLIA [id number] [address] [place] [address] [place] CNOVon 11-06-2024 CNOV Office Visit (CARDWS ) BERTA SANCHES ([id number]) 1945 F [place] Date Time Provider Department 11/06/24 2:40 PM CARLA BURDICK During your visit today, we recorded the following information about you: Pulse Respiration Blood pressure Weight 68/minute 12/minute 134/54 68.9 kg Height 1.575 m Carla Burdick MD 11/06/2024 5:01 PM Signed [facility] SECTION OF REGIONAL CARDIOLOGY Cardiology ([facility]) [address] [facility] [id number] OUTPATIENT VISIT DATE 11/06/2024 PRIMARY CARE PHYSICIAN: Gerard Le [address] [place] [address] HISTORY OF PRESENT ILLNESS: Ms. 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 Lua PACEMAKER 10/2019 PART. HYSTERECTOMY W/WO RMVL OVARIES/TUBES 1973 h/o cervical cancer ovaries remain PAST SURGICAL HISTORY OF 1996 Aortic valve repair, Dr. Apodaca PAST SURGICAL HISTORY OF 2001 [address] Beltrán, [facility] PAST SURGICAL HISTORY OF 2015 [...] Allergen Reactions (more content not included)... Normal [facility] Basic metabolic 2000 panelon 11-03-2024 Anion gap [Moles/Vol] 11 mmol/L 8 - 15 mmol/L [facility] Calcium [Mass/Vol] 9.1 mg/dL 8.5 - 10. 2 mg/dL [facility] Chloride [Moles/Vol] 84 mmol/L Low 98 - 10 7 mmol/L [facility] CO2 [Moles/Vol] 27 mmol/L 22 - 30 mmol/L [facility] Creatinine [Mass/Vol] 2.36 mg/dL High 0.58 - 0.96 mg/dL [facility] GFR/1.73 sq M.predicted among non-blacks MDRD (S/P/Bld) [Vol rate/Area] 20 mL/min/{1.73_m2} Low - PINF [facility] Comment on above: Estimated Glomerular Filtration [...] 114 mg/dL High 74 - 99 mg/dL [facility] Comment on above: The [place] Diabete s Association (ADA) provides guidance for [...] Standards of Medical Care in Diabetes 2016, [place] Diabetes Association. Diabetes Care. 2016.39(Suppl 1). Interpretation and review of laboratory results Abnormal [facility] Potassium [Moles/Vol] 4.3 mmol/L 3.7 - 5.1 mmol/L [facility] Sodium [Moles/Vol] 122 mmol/L Low 136 - 144 mmol/L [facility] Urea nitrogen [Mass/Vol] 57 mg/dL High 7 - 21 mg/dL [facility] Anion gap [Moles/Vol] 11 mmol/L Normal 8-15 [facility] Comment on above: Order Comment: Annie ricci Type: BLOOD SPECIMEN Ordering Facility: [facility] Address: [address] [place] [address] Performed By: #### 2 132-9, 2283-8 #### [facility] CLIA [id number] [address] [place] [address] [place] Calcium [Mass/Vol] 9.1 mg/dL Normal 8.5-10.2 [facility] Comment on above: Order Comment: Annie ricci Type: BLOOD SPECIMEN Ordering Facility: [facility] Address: [address] [place] [address] Performed By: #### 2 132-9, 2283-8 #### [facility] CLIA [id number] [address] [place] [address] [place] Chloride [Moles/Vol] 84 mmol/L Low 98-107 [facility] Comment on above: Order Comment: Annie ricci Type: BLOOD SPECIMEN Ordering Facility: [facility] Address: [address] [place] [address] Performed By: #### 2 132-9, 8 #### [facility] CLIA [id number] [address] [place] [address] [place] CO2 [Moles/Vol] 27 mmol/L Normal 22-30 [facility] Comment on above: Order Comment: Annie ricci Type: BLOOD SPECIMEN Ordering Facility: [facility] Address: [address] [place], [place] [address] Performed By: #### 2 132-9, 4-8 #### [facility] CLIA [id number] [address] [place] [address] [place] Creatinine [Mass/Vol] 2.36 mg/dL High 0.58-0.96 [facility] Comment on above: Order Comment: Annie ricci Type: BLOOD SPECIMEN Ordering Facility: [facility] Address: [address] [place] [address] Performed By: #### 2 132-9, 2283-8 #### [facility] CLIA [id number] [address] [place] [address] [place] Creatinine and Glomerular filtration rate.predicted panel (S/P/Bld) 20 mL/min/1.73m??? Low >=60 [facility] Comment on above: Order Comment: Annie ricci Type: BLOOD SPECIMEN Ordering Facility: [facility] Address: [address] [place] [address] Result Comment: Mira mated Glomerular Filtration Rate [...] Performed By: #### 2 132-9, 4-8 #### [facility] CLIA [id number] [address] [place] [address] [place] Glucose [Mass/Vol] 114 mg/dL High 74-99 [facility] Comment on above: Order Comment: Annie ricci Type: BLOOD SPECIMEN Ordering Facility: [facility] Address: [address] [place] [address] Result Comment: The [place] Diabetes Association (ADA) provides guidance for cutoff [...] Standards of Medical Care in Diabetes 2016, [place] Diabetes Association. Diabetes Care. 2016.39(Suppl 1). Performed By: #### 2 132-9, 2283-8 #### [facility] CLIA [id number] [address] Potassium [Moles/Vol] 4.3 mmol/L Normal 3.7-5.1 [facility] Comment on above: Order Comment: Annie ricci Type: BLOOD SPECIMEN Ordering Facility: [facility] Address: [address] [place] [address] Performed By: #### 2 132-9, 2283-8 #### [facility] CLIA [id number] [address] Sodium [Moles/Vol] 122 mmol/L Low 136-144 [facility] Comment on above: Order Comment: Annie ricci Type: BLOOD SPECIMEN Ordering Facility: [facility] Address: [address] [place] [address] Performed By: #### 2 132-9, 2283-8 #### [facility] CLIA [id number] [address] Urea nitrogen [Mass/Vol] 57 mg/dL High 7-21 [facility] Comment on above: Order Comment: Annie ricci Type: BLOOD SPECIMEN Ordering Facility: [facility] Address: [address] [place] [address] Performed By: #### 2 132-9, 2283-8 #### [facility] CLIA [id number] [address] [facility] CNOVon 11-03-2024 CNOV Office Visit ([facility] ) BERTA SANCHES ([id number]) 1945 F [place] Date Time Provider Department 11/03/24 9:[address] [facility] During your visit today, we recorded the [...] or concern, you can call me at [phone]. Albin Gu APRN.CNP 11/03/2024 10:28 AM [facility] OUTPATIENT VISIT DATE [...] and was worried about traveling home to [place] in a few days. Discussed with her taking lasix as it was prescribed. As her spironolactone was stopped, did advise patient restart this at 25 mg once a day for four days only. She was instructed to call office in a week to review symptoms. On 10/15, patient presented back to [facility] for gastrointestinal bleed. She had a colonoscopy [...] and entresto. The patient wished to leave [place] so she could return to [place]. Cardiology and Pulmonary agreed with discharge. Today, [...] call and discuss this with this HF TEXT TRANSCRIBER. Wearing lidocaine patch over site to right side of neck as she mentions havi (more content not included)... Normal [facility] 11-03-2024 [facility] Telephone ([facility]) BERTA SANCHES ([id number]) 1945 F [facility] Date Time Provider Department 11/03/[address] [facility] During your visit today, we recorded the [...] 02/26/2014 03/21/2022 Intracranial aneurysm [I67.1] 08/30/2015 10/05/2022 group home current use of antiarrhythmic medical*10/20/2016 09/12/2021 Prosthetic [...] (HCC) [C64.9] (more content not included)... Normal [facility] CBC W Auto Differential pane l (Bld)on 10-31-2024 Basophils (Bld) [#/Vol] 0.06 10*3/uL [facility] Basophils/100 WBC (Bld) 1 % C [facility] Differential cell count method Nom (Bld) Auto [facility] Eosinophils (Bld) [#/Vol] 0.13 10*3/uL [facility] Eosinophils/100 WBC (Bld) 2.1 % [facility] Erythrocyte distribution width (RBC) [Ratio] 16.8 % High 11.5 - 15.0 % [facility] Hematocrit (Bld) [Volume fraction] 26.3 % Low 36.0 - 46.0 % [facility] Hemoglobin (Bld) [Mass/Vol] 8.7 g/dL Low 11.5 - 15.5 g/dL [facility] Immature granulocytes (Bld) [#/Vol] 0.04 10*3/uL [facility] Immature granulocytes/100 WBC (Bld) 0.6 % [facility] Interpretation and review of laboratory results Abnormal [facility] Lymphocytes (Bld) [#/Vol] 1.29 10*3/uL [facility] Lymphocytes/100 WBC (Bld) 20.6 % [facility] MCH (RBC) [Entitic mass] 31.6 pg 26.0 - 34.0 pg [facility] MCHC (RBC) [Mass/Vol] 33.1 g/dL 30.5 - 36.0 g/dL [facility] MCV (RBC) [Entitic vol] 95.6 fL 80.0 - 100.0 fL [facility] Monocytes (Bld) [#/Vol] 0.82 10*3/uL [facility] Monocytes/100 WBC (Bld) 13.1 % [facility] Neutrophils (Bld) [#/Vol] 3.92 10*3/uL [facility] Neutrophils/100 WBC (Bld) 62.6 % [facility] Nucleated RBC (Bld) [#/Vol] NINF [facility] Nucleated RBC/100 WBC (Bld) [Ratio] 0 % /100 WBC [facility] Platelet mean volume (Bld) [Entitic vol] 9.5 fL 9.0 - 12.7 fL [facility] Platelets (Bld) [#/Vol] 202 10*3/uL [facility] RBC (Bld) [#/Vol] 2.75 10*6/uL Low 3.90 - 5.2 0 m/uL [facility] WBC (Bld) [#/Vol] 6.26 10*3/uL [facility] Basophils (Bld) [#/Vol] 0.06 10*3/uL Normal <0.11 [facility] Comment on above: Order Comment: Speci men Type: BLOOD SPECIMEN Ordering Facility: [facility] Address: [address] [place] [address] Performed By: #### 2 4331-1 #### [facility] CLIA [id number] [address] [place] [address] [place] [facility] CLIA [id number] [address] [place] [address] [place] #### 12154-9 #### [facility] CLIA [id number] [address] [place] [address] [place] Basophils/100 WBC (Bld) 1.0 % [facility] Comment on above: Order Comment: Speci men Type: BLOOD SPECIMEN Ordering Facility: [facility] Address: [address] [place] [address] Performed By: #### 2 4331-1 #### [facility] CLIA [id number] [address] [place] [address] [place] [facility] CLIA [id number] [address] [place] [address] [place] #### 22392-5 #### [facility] CLIA [id number] [address] [place] [address] [place] Differential cell count method Nom (Bld) Auto Normal [facility] Comment on above: Order Comment: Speci men Type: BLOOD SPECIMEN Ordering Facility: [facility] Address: [address] [place] [address] Performed By: #### 2 4331-1 #### [facility] CLIA [id number] [address] [place] [address] [place] [facility] [id number] [address] [place] [address] [place] #### 40864-2 #### [facility] CLIA [id number] [address] [place] [address] [place] Eosinophils (Bld) [#/Vol] 0.13 10*3/uL Normal <0.46 [facility] Comment on above: Order Comment: Speci men Type: BLOOD SPECIMEN Ordering Facility: [facility] Address: [address] [place] [address] Performed By: #### 2 4331-1 #### [facility] CLIA [id number] [address] [place] [address] [place] [facility] [id number] [address] [place] [address] [place] #### 62527-7 #### [facility] CLIA [id number] [address] [place] [address] [place] Eosinophils/100 WBC (Bld) 2.1 % Normal [facility] Comment on above: Order Comment: Speci men Type: BLOOD SPECIMEN Ordering Facility: [facility] Address: [address] [place] [address] Performed By: #### 2 4331-1 #### [facility] CLIA [id number] [address] [place] [address] [place] [facility] CLIA [id number] [address] [place] [address] [place] #### 73896-6 #### [facility] CLIA [id number] [address] [place] [address] [place] Erythrocyte distribution width (RBC) [Ratio] 16.8 % High 11.5-15.0 [facility] Comment on above: Order Comment: Speci men Type: BLOOD SPECIMEN Ordering Facility: [facility] Address: [address] [place] [address] Performed By: #### 2 4331-1 #### [facility] CLIA [id number] [address] [place] [address] [place] [facility] [id number] [address] [place] [address] [place] #### 80080-4 #### [facility] CLIA [id number] [address] [place] [address] [place] Hematocrit (Bld) [Volume fraction] 26.3 % Low 36.0-46.0 [facility] Comment on above: Order Comment: Speci men Type: BLOOD SPECIMEN Ordering Facility: [facility] Address: [address] [place] [address] Performed By: #### 2 4331-1 #### [facility] CLIA [id number] [address] [place] [address] [place] [facility] [id number] [address] [place] [address] [place] #### 97423-1 #### [facility] CLIA [id number] [address] [place] [address] [place] Hemoglobin (Bld) [Mass/Vol] 8.7 g/dL Low 11.5-15.5 [facility] Comment on above: Order Comment: Speci men Type: BLOOD SPECIMEN Ordering Facility: [facility] Address: [address] [place] [address] Performed By: #### 2 4331-1 #### [facility] CLIA [id number] [address] [place] [address] [place] [facility] CLIA [id number] [address] [place] [address] [place] #### 30241-9 #### [facility] CLIA [id number] [address] [place] [address] [place] Immature granulocytes (Bld) [#/Vol] 0.04 10*3/uL Normal <0.10 [facility] Comment on above: Order Comment: Speci men Type: BLOOD SPECIMEN Ordering Facility: [facility] Address: [address] [place] [address] Performed By: #### 2 4331-1 #### [facility] CLIA [id number] [address] [place] [address] [place] [facility] CLIA [id number] [address] [place] [address] [place] #### 63248-4 #### [facility] CLIA [id number] [address] [place] [address] [place] Immature granulocytes/100 WBC (Bld) 0.6 % Normal [facility] Comment on above: Order Comment: Speci men Type: BLOOD SPECIMEN Ordering Facility: [facility] Address: [address] [place] [address] Performed By: #### 2 4331-1 #### [facility] CLIA [id number] [address] [place] [address] [place] [facility] CLIA [id number] [address] [place] [address] [place] #### 63863-1 #### [facility] CLIA [id number] [address] [place] [address] [place] Lymphocytes (Bld) [#/Vol] 1.29 10*3/uL Normal 1.00-4.00 [facility] Comment on above: Order Comment: Speci men Type: BLOOD SPECIMEN Ordering Facility: [facility] Address: [address] [place] [address] Performed By: #### 2 4331-1 #### [facility] CLIA [id number] [address] [place] [address] [place] [facility] [id number] [address] [place] [address] [place] #### 84679-7 #### [facility] CLIA [id number] [address] [place] [address] [place] Lymphocytes/100 WBC (Bld) 20.6 % Normal [facility] Comment on above: Order Comment: Speci men Type: BLOOD SPECIMEN Ordering Facility: [facility] Address: [address] [place] [address] Performed By: #### 2 4331-1 #### [facility] CLIA [id number] [address] [place] [address] [place] [facility] CLIA [id number] [address] [place] [address] [place] #### 47213-0 #### [facility] CLIA [id number] [address] [place] [address] [place] MCH (RBC) [Entitic mass] 31.6 pg Normal 26.0-34.0 [facility] Comment on above: Order Comment: Speci men Type: BLOOD SPECIMEN Ordering Facility: [facility] Address: [address] [place] [address] Performed By: #### 2 4331-1 #### [facility] CLIA [id number] [address] [place] [address] [place] [facility] CLIA [id number] [address] [place] [address] [place] #### [id number] #### [facility] CLIA [id number] [address] [place] [address] [place] MCHC (RBC) [Mass/Vol] 33.1 g/dL Normal 30.5-36.0 [facility] Comment on above: Order Comment: Speci men Type: BLOOD SPECIMEN Ordering Facility: [facility] Address: [address] [place] [address] Performed By: #### 2 4331-1 #### [facility] CLIA [id number] [address] [place] [address] [place] [facility] CLIA [id number] [address] [place] [address] [place] #### 07317-4 #### [facility] CLIA [id number] [address] [place] [address] [place] MCV (RBC) [Entitic vol] 95.6 fL Normal 80.0-100.0 [facility] Comment on above: Order Comment: Speci men Type: BLOOD SPECIMEN Ordering Facility: [facility] Address: [address] [place] [id number] Performed By: #### 2 4331-1 #### [facility] CLIA [id number] [address] [place] [address] [place] [facility] CLIA [id number] [address] [place] [address] [place] #### 13835-1 #### [facility] CLIA [id number] [address] [place] [id number] [place] Monocytes (Bld) [#/Vol] 0.82 10*3/uL Normal <0.87 [facility] Comment on above: Order Comment: Speci men Type: BLOOD SPECIMEN Ordering Facility: [facility] Address: [address] [place] [address] Performed By: #### 2 4331-1 #### [facility] CLIA [id number] [address] [place] [address] [place] [facility] [id number] [place] [address] [place] #### 36016-5 #### [facility] CLIA [id number] [address] [place] [address] [place] Monocytes/100 WBC (Bld) 13.1 % Normal [facility] Comment on above: Order Comment: Speci men Type: BLOOD SPECIMEN Ordering Facility: [facility] Address: [address] [place] [address] Performed By: #### 2 4331-1 #### [facility] CLIA [id number] [address] [place] [address] [place] [facility] [id number] [place] [address] [place] #### 87978-5 #### [facility] CLIA [id number] [address] [place] [address] [place] Neutrophils (Bld) [#/Vol] 3.92 10*3/uL Normal 1.45-7.50 [facility] Comment on above: Order Comment: Speci men Type: BLOOD SPECIMEN Ordering Facility: [facility] Address: [address] [place] [address] Performed By: #### 2 4331-1 #### [facility] CLIA [id number] [facility] [place] [id number] [place] [facility] CLIA [id number] [address] [place] [address] [place] #### 66517-8 #### [facility] CLIA [id number] [address] [place] [address] [place] Neutrophils/100 WBC (Bld) 62.6 % Normal [facility] Comment on above: Order Comment: Speci men Type: BLOOD SPECIMEN Ordering Facility: [facility] Address: [address] [place] [address] Performed By: #### 2 4331-1 #### [facility] CLIA [id number] [address] [place] [address] [place] [facility] CLIA [id number] [address] [place] [address] [place] #### 14795-5 #### [facility] CLIA [id number] [address] [place] [address] [place] Nucleated RBC (Bld) [#/Vol] 10*3/uL Normal <0.01 [facility] Comment on above: Order Comment: Speci men Type: BLOOD SPECIMEN Ordering Facility: [facility] Address: [address] [place] [address] Performed By: #### 2 4331-1 #### [facility] CLIA [id number] [address] [place] [address] [place] [facility] CLIA [id number] [address] [place] [address] [place] #### 42052-8 #### [facility] CLIA [id number] [address] [place] [address] [place] Nucleated RBC/100 WBC (Bld) [Ratio] 0.0 /100 WBC Normal [facility] Comment on above: Order Comment: Speci men Type: BLOOD SPECIMEN Ordering Facility: [facility] Address: [address] [place] [address] Performed By: #### 2 4331-1 #### [facility] CLIA [id number] [address] [place] [address] [place] [facility] CLIA [id number] [address] [place] [address] [place] #### 87448-4 #### [facility] CLIA [id number] [address] [place] [address] [place] Platelet mean volume (Bld) [Entitic vol] 9.5 fL Normal 9.0-12.7 [facility] Comment on above: Order Comment: Speci men Type: BLOOD SPECIMEN Ordering Facility: [facility] Address: [address] [place] [address] Performed By: #### 2 4331-1 #### [facility] CLIA [id number] [address] [place] [address] [place] [facility] CLIA [id number] [address] [place] [address] [place] #### 06868-7 #### [facility] CLIA [id number] [address] [place] [address] [place] Platelets (Bld) [#/Vol] 202 10*3/uL Normal 150-400 [facility] Comment on above: Order Comment: Speci men Type: BLOOD SPECIMEN Ordering Facility: [facility] Address: [address] [place] [address] Performed By: #### 2 4331-1 #### [facility] CLIA [id number] [address] [place] [address] [place] [facility] CLIA [id number] [address] [place] [address] [place] #### 95412-7 #### [facility] CLIA [id number] [address] [place] [address] [place] RBC (Bld) [#/Vol] 2.75 10*6/uL Low 3.90-5.20 [facility] Comment on above: Order Comment: Speci men Type: BLOOD SPECIMEN Ordering Facility: [facility] Address: [address] [place] [address] Performed By: #### 2 4331-1 #### [facility] CLIA [id number] [address] [place] [address] [place] [facility] [id number] [address] [place] [address] [place] #### 52540-5 #### [facility] CLIA [id number] [address] [place] [address] [place] WBC (Bld) [#/Vol] 6.26 10*3/uL Normal 3.70-11.00 [facility] Comment on above: Order Comment: Speci men Type: BLOOD SPECIMEN Ordering Facility: [facility] Address: [address] [place] [address] Performed By: #### 2 4331-1 #### [facility] CLIA [id number] [address] [place] [address] [place] [facility] CLIA [id number] [address] [place] [address] [place] #### 46385-1 #### [facility] CLIA [id number] [address] [place] [address] [place] CNOVon 10-31-2024 CNOV Office Visit (FAMPWS ) BERTA SANCHES ([id number]) 1945 F [place] Date Time Provider Department 10/31/24 11:00 AM SHAYE DOMINGO During your visit today, we recorded the following information about you: Pulse Blood pressure Weight 84/minute 147/68 64.4 kg Shaye Domingo, TEXT TRANSCRIBER.SOCIAL SCIENCE INSTRUCTOR 10/31/2024 12:52 PM Signed Chief Complaint Patient presents with: Hospital F/U [facility] Berta Sanches is a 79 year old female who presents here today for Above Complaints.. Acute Mesenteric Ischemia: - Initially admitted to [facility] on 10/02/2024. - Underwent femoral ultrasound-guided angiogram with angioplasty and stenting of the SMA. - Required CRRT for MONIQUE post-op. - Developed AFib with RVR post-op. - Discharged after 23-day hospitalization. Acute on Chronic Heart Failure: - Given IV Lasix during initial admission. 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 Lua PACEMAKER 10/2019 PART. HYSTERECTOMY W/WO RMVL OVARIES/TUBES 1974 h/o cervical cancer ovaries remain PAST SURGICAL HISTORY OF 1996 Aortic valve repair, Dr. Apodaca PAST SURGICAL HISTORY OF 2001 [address] Beltrán, [facility] PAST SURGICAL HISTORY OF 2016 [...] mcg epi (more content not included)... Normal [facility] metabolic 2000 panelOrdered By: Shala Segura on 10-31-2024 Albumin [Mass/Vol] 4 g/dL 3.9 - 4.9 g/dL [facility] ALP [Catalytic activity/Vol] 81 U/L 34 - 123 U/L [facility] ALT [Catalytic activity/Vol] 10 U/L 7 - 38 U/L [facility] Anion gap [Moles/Vol] 11 mmol/L 8 - 15 mmol/L [facility] AST [Catalytic activity/Vol] 19 U/L 13 - 35 U/L [facility] Bilirubin [Mass/Vol] 1 mg/dL 0.2 - 1 .3 mg/dL [facility] Calcium [Mass/Vol] 9.3 mg/dL 8.5 - 10. 2 mg/dL [facility] Chloride [Moles/Vol] 83 mmol/L Low 98 - 10 7 mmol/L [facility] CO2 [Moles/Vol] 29 mmol/L 22 - 30 mmol/L [facility] Creatinine [Mass/Vol] 2.5 mg/dL High 0.58 - 0.96 mg/dL [facility] GFR/1.73 sq M.predicted among non-blacks MDRD (S/P/Bld) [Vol rate/Area] 19 mL/min/{1.73_m2} Low - PINF [facility] Comment on above: Estimated Glomerular Filtration [...] 138 mg/dL High 74 - 99 mg/dL [facility] Comment on above: The [place] Diabete s Association (ADA) provides guidance for [...] Standards of Medical Care in Diabetes 2016, [place] Diabetes Association. Diabetes Care. 2016.39(Suppl 1). Interpretation and review of laboratory results Abnormal [facility] Potassium [Moles/Vol] 3.8 mmol/L 3.7 - 5.1 mmol/L [facility] Protein [Mass/Vol] 7 g/dL 6.3 - 8.0 g/dL [facility] Sodium [Moles/Vol] 123 mmol/L Low 136 - 144 mmol/L [facility] Urea nitrogen [Mass/Vol] 53 mg/dL High 7 - 21 mg/dL [facility] Comprehensive metabolic 2000 panelon 10-31-2024 Albumin [Mass/Vol] 4.0 g/dL Normal 3.9-4.9 [facility] Comment on above: Order Comment: Annie ricci Type: BLOOD SPECIMEN Ordering Facility: [facility] Address: [address] [place] [address] Performed By: #### 3 3762-6 #### [facility] CLIA [id number] [address] [place] [address] [place] ALP [Catalytic activity/Vol] 81 U/L Normal 34-123 [facility] Comment on above: Order Comment: Annie ricci Type: BLOOD SPECIMEN Ordering Facility: [facility] Address: [address] [place] [address] Performed By: #### 3 3762-6 #### [facility] CLIA [id number] [address] [place] [id number] [place] ALT [Catalytic activity/Vol] 10 U/L Normal 7-38 [facility] Comment on above: Order Comment: Speci men Type: BLOOD SPECIMEN Ordering Facility: [facility] Address: [address] [place], [place] [address] Performed By: #### 3 3762-6 #### [facility] CLIA [id number] [address] [place], [place] [address] [place] Anion gap [Moles/Vol] 11 mmol/L Normal 8-15 [facility] Comment on above: Order Comment: Speci men Type: BLOOD SPECIMEN Ordering Facility: [facility] Address: [address] [place] [address] Performed By: #### 3 3762-6 #### [facility] CLIA [id number] [address] [place] [address] [place] AST [Catalytic activity/Vol] 19 U/L Normal 13-35 [facility] Comment on above: Order Comment: Speci men Type: BLOOD SPECIMEN Ordering Facility: [facility] Address: [address] [place], [place] [address] Performed By: #### 3 3762-6 #### [facility] CLIA [id number] [address] [place], [place] [address] [place] Bilirubin [Mass/Vol] 1.0 mg/dL Normal 0.2-1.3 [facility] Comment on above: Order Comment: Speci men Type: BLOOD SPECIMEN Ordering Facility: [facility] Address: [address] [place], [place] [address] Performed By: #### 3 3762-6 #### [facility] CLIA [id number] [address] [place], [place] [address] [place] Calcium [Mass/Vol] 9.3 mg/dL Normal 8.5-10.2 [facility] Comment on above: Order Comment: Speci men Type: BLOOD SPECIMEN Ordering Facility: [facility] Address: [address] [place] [address] Performed By: #### 3 3762-6 #### [facility] CLIA [id number] [address] [place] [address] [place] Chloride [Moles/Vol] 83 mmol/L Low 98-107 [facility] Comment on above: Order Comment: Speci men Type: BLOOD SPECIMEN Ordering Facility: [facility] Address: [address] [place] [address] Performed By: #### 3 3762-6 #### [facility] CLIA [id number] [address] [place] [address] [place] CO2 [Moles/Vol] 29 mmol/L Normal 22-30 [facility] Comment on above: Order Comment: Speci men Type: BLOOD SPECIMEN Ordering Facility: [facility] Address: [address] [place] [address] Performed By: #### 3 3762-6 #### [facility] CLIA [id number] [address] [place] [address] [place] Creatinine [Mass/Vol] 2.50 mg/dL High 0.58-0.96 [facility] Comment on above: Order Comment: Speci men Type: BLOOD SPECIMEN Ordering Facility: [facility] Address: [address] [place] [address] Performed By: #### 3 3762-6 #### [facility] CLIA [id number] [address] [place] [address] [place] Creatinine and Glomerular filtration rate.predicted panel (S/P/Bld) 19 mL/min/1.73m??? Low >=60 [facility] Comment on above: Order Comment: Speci men Type: BLOOD SPECIMEN Ordering Facility: [facility] Address: [address] [place] [address] Result Comment: Mira mated Glomerular Filtration Rate [...] GFR. Performed By: #### 3 3762-6 #### [facility] CLIA [id number] [address] [place] [address] [place] Glucose [Mass/Vol] 138 mg/dL High 74-99 [facility] Comment on above: Order Comment: Annie ricci Type: BLOOD SPECIMEN Ordering Facility: [facility] Address: [address] [place] [address] Result Comment: The [place] Diabetes Association (ADA) provides guidance for cutoff [...] Standards of Medical Care in Diabetes 2016, [place] [employer]. Diabetes Care. 2016.39(Suppl 1). Performed By: #### 3 3762-6 #### [facility] CLIA [id number] [address] [place] [address] [place] Potassium [Moles/Vol] 3.8 mmol/L Normal 3.7-5.1 [facility] Comment on above: Order Comment: Annie ricci Type: BLOOD SPECIMEN Ordering Facility: [facility] Address: [address] [place] [address] Performed By: #### 3 3762-6 #### [facility] CLIA [id number] [address] [place] [address] [place] Protein [Mass/Vol] 7.0 g/dL Normal 6.3-8.0 [facility] Comment on above: Order Comment: Speci men Type: BLOOD SPECIMEN Ordering Facility: [facility] Address: [address] [place] [address] Performed By: #### 3 3762-6 #### [facility] CLIA [id number] [address] [place] [address] [place] Sodium [Moles/Vol] 123 mmol/L Low 136-144 [facility] Comment on above: Order Comment: Speci men Type: BLOOD SPECIMEN Ordering Facility: [facility] Address: [address] [place] [address] Performed By: #### 3 3762-6 #### [facility] CLIA [id number] [address] [place] [address] [place] Urea nitrogen [Mass/Vol] 53 mg/dL High 7-21 [facility] Comment on above: Order Comment: Speci men Type: BLOOD SPECIMEN [facility] [facility] Address: [address] [place] [address] Performed By: #### 3 3762-6 #### [facility] CLIA [id number] [address] [place] [address] [place] MAGNESIUMon 10-31-2024 Magnesium [Mass/Vol] 2 mg/dL 1.7 - 2 .3 mg/dL [facility] Magnesium SerPl-mCncon 10-31 Magnesium [Mass/Vol] 2.0 mg/dL Normal 1.7-2.3 [facility] Comment on above: Order Comment: Speci men Type: BLOOD SPECIMEN Ordering Facility: [facility] Address: [address] [place], [place] [address] Performed By: #### 2 4331-1 #### [facility] CLIA [id number] [address] [place] [facility] CLIA [id number] [address] [place], [place] [address] [place] #### 30771-2 #### [facility] CLIA [id number] [address] [place] [address] [place] Magnesium [Mass/Vol]on 10-31 Interpretation and review of laboratory results Normal [facility] No Panel InformationOrdered By: Shala Segura on 10-31-2024 [facility] Connie [facility] BERTA SANCHES ([id number]) 1945 [facility] Date Time Provider Department 10/12/[address] 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 [facility] BERTA SANCHES ([id number]) 1945 [place] Date Time Provider Department 07/31/[address] [facility] During your visit today, we recorded the following information about you: Melida Koo APRN.SOCIAL SCIENCE INSTRUCTOR 07/31/2024 12:00 PM Signed Pt called to request refill for KDur as she has run out of prescription. She states that she is currently in [place] and will be in [place] until October. [facility] called in [place], [place]. Spoke with Pharmacist on duty. Rx for KDur 10 meq PO daily given verbally #90 with no refills. 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 Normal [facility] 25(OH)D3 [facility] 25-hydroxyvitamin D3 [Mass/Vol] 41.9 ng/mL Normal 31.0-80.0 [facility] Comment on above: Order Comment: Speci men Type: BLOOD SPECIMEN Ordering Facility: [facility] Address: [address] [place] [address] Result Comment: Clas sification of 25 OH Vitamin D status: Deficiency/Insufficiency: < or = 30 ng/ml. Sufficiency/Optimal Levels: 31-80 ng/mL Toxicity: > 100 ng/mL. Test performed by chemiluminescent immunoassay. Performed By: #### 2 4331-1 #### [facility] CLIA [id number] [address] [place] [address] [place] [facility] [address] [place] [address] [place] #### 30878-8 #### [facility] CLIA [id number] [address] [place] [address] [place] ALBUMIN/CREATININE RATIO, INEon 07-07-2024 Albumin DL <= 20 mg/L (U) [Mass/Vol] 21.0 mg/L Normal [facility] Comment on above: Order Comment: Speci men Type: BLOOD SPECIMEN Ordering Facility: [facility] Address: [address] [place] [address] Performed By: #### 2 4331-1 #### [facility] CLIA [id number] [address] [place] [address] [place] [facility] CLIA [id number] [place] [address] [place] #### 44669-2 #### [facility] CLIA [id number] [address] [place] [address] [place] Albumin/Creatinine (U) [Mass ratio] 34 mg/g High <30 [facility] Comment on above: Order Comment: Speci men Type: BLOOD SPECIMEN Ordering Facility: [facility] Address: [address] [place] [address] Result Comment: Adul t Male and Female Nephrotic Criteria: <30 mg/g is considered normal to mildly increased 30-300 mg/g is considered moderately increased >300 mg/g is considered severely increased KDIGO. (2013). KDIGO 2012 Clinical Practice Guideline for the Evaluation and Management of Chronic Kidney Disease. Official Journal of the International Society of Nephrology, 3(1), 1-150. Performed By: #### 2 4331-1 #### [facility] CLIA [id number] [address] [place] [address] [place] [facility] CLIA [id number] [address] [place] [address] [place] #### 43332-5 #### [facility] CLIA [id number] [address] [place] [address] [place] Creatinine (U) [Mass/Vol] 61.6 mg/dL Normal 20.0-300.0 [facility] Comment on above: Order Comment: Speci men Type: BLOOD SPECIMEN Ordering Facility: [facility] Address: [address] [place] [address] Performed By: #### 2 4331-1 #### [facility] CLIA [id number] [address] [place] [address] [place] [facility] CLIA [id number] [address] [place] [address] [place] #### 66934-4 #### [facility] CLIA [id number] [address] [place] [address] [place] Basic metabolic 2000 panelon 07-07-2024 Anion gap [Moles/Vol] 13 mmol/L Normal 8-15 [facility] Comment on above: Order Comment: Speci men Type: BLOOD SPECIMEN Ordering Facility: [facility] Address: [address] [place], [place] [address] Performed By: #### 3 3762-6 #### [facility] CLIA [id number] [address] [place] [address] [place] Calcium [Mass/Vol] 9.8 mg/dL Normal 8.5-10.2 [facility] Comment on above: Order Comment: Speci men Type: BLOOD SPECIMEN Ordering Facility: [facility] Address: [address] [place] [address] Performed By: #### 3 3762-6 #### [facility] CLIA [id number] [address] [place] [address] [place] Chloride [Moles/Vol] 100 mmol/L Normal 98-107 [facility] Comment on above: Order Comment: Speci men Type: BLOOD SPECIMEN Ordering Facility: [facility] Address: [address] [place] [address] Performed By: #### 3 3762-6 #### [facility] CLIA [id number] [address] [place] [address] [place] CO2 [Moles/Vol] 25 mmol/L Normal 22-30 [facility] Comment on above: Order Comment: Speci men Type: BLOOD SPECIMEN Ordering Facility: [facility] Address: [address] [place], [place] [address] Performed By: #### 3 3762-6 #### [facility] CLIA [id number] [address] [place], [place] [address] [place] Creatinine [Mass/Vol] 1.12 mg/dL High 0.58-0.96 [facility] Comment on above: Order Comment: Speci men Type: BLOOD SPECIMEN Ordering Facility: [facility] Address: [address] [place], [place] [address] Performed By: #### 3 3762-6 #### [facility] CLIA [id number] [address] [place] [address] [place] Creatinine and Glomerular filtration rate.predicted panel (S/P/Bld) 50 mL/min/1.73m??? Low >=60 [facility] Comment on above: Order Comment: Annie ricci Type: BLOOD SPECIMEN Ordering Facility: [facility] Address: [address] [place] [address] Result Comment: Mira mated Glomerular Filtration Rate [...] GFR. Performed By: #### 3 3762-6 #### [facility] CLIA [id number] [address] [place] [address] [place] Glucose [Mass/Vol] 118 mg/dL High 74-99 [facility] Comment on above: Order Comment: Annie ricci Type: BLOOD SPECIMEN Ordering Facility: [facility] Address: [address] [place] [address] Result Comment: The [place] Diabetes Association (ADA) provides guidance for cutoff [...] Standards of Medical Care in Diabetes 2016, [place] Diabetes Association. Diabetes Care. 2016.39(Suppl 1). Performed By: #### 3 3762-6 #### [facility] CLIA [id number] [address] [place] [address] [place] Potassium [Moles/Vol] 4.4 mmol/L Normal 3.7-5.1 [facility] Comment on above: Order Comment: Speci men Type: BLOOD SPECIMEN Ordering Facility: [facility] Address: [address] [place] [address] Performed By: #### 3 3762-6 #### [facility] CLIA [id number] [address] [place] [address] [place] Sodium [Moles/Vol] 138 mmol/L Normal 136-144 [facility] Comment on above: Order Comment: Speci men Type: BLOOD SPECIMEN Ordering Facility: [facility] Address: [address] [place] [address] Performed By: #### 3 3762-6 #### [facility] CLIA [id number] [address] [place] [address] [place] Urea nitrogen [Mass/Vol] 34 mg/dL High 7-21 [facility] Comment on above: Order Comment: Speci men Type: BLOOD SPECIMEN Ordering Facility: [facility] Address: [address] [place] [address] Performed By: #### 3 3762-6 #### [facility] CLIA [id number] [address] [place] [address] [place] CNOVon 07-07-2024 [facility] Office Visit ([facility] ) BERTA SANCHES ([id number]) 1945 [place] Date Time Provider Department 07/07/24 8:00 AM DEYSI COLLAZO During your visit today, we recorded the following information about you: Pulse Respiration Blood pressure Weight 69/minute 16/minute 136/70 63.5 kg Deysi Collazo APRN.SOCIAL SCIENCE INSTRUCTOR 07/07/2024 12:41 PM Signed This is a 78 year old female who presents today with: Patient presents with: Establish Care HISTORY OF PRESENT ILLNESS: Berta Sanches is a 78 year old female. Patient presents with: Establish Care Pt presents today to [facility]. 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 Lua PACEMAKER 10/2019 PART. HYSTERECTOMY W/WO RMVL OVARIES/TUBES 1973 h/o cervical cancer ovaries remain PAST SURGICAL HISTORY OF 1996 Aortic valve repair, Dr. Apodaca PAST SURGICAL HISTORY OF 2001 [address] Beltrán, [facility] PAST SURGICAL HISTORY OF 2015 [...] once daily. (more content not included)... Normal [facility] HbA1c (Bld)on 07-07-2024 Average glucose Estimated from glycated hemoglobin (Bld) [Mass/Vol] 151 mg/dL Normal [facility] Comment on above: Order Comment: Annie ricci Type: BLOOD SPECIMEN Ordering Facility: [facility] Address: [address] [place] [address] Result Comment: eAG: (Estimated average glucose) is a calculated value from HgbA1c and is territory representative of the average blood glucose level in the last 2-3 month period. Performed By: #### 3 3762-6 #### [facility] CLIA [id number] [address] [place] [address] [place] [facility] HbA1c (Bld) [Mass fraction] 6.9 % High 4.3-5.6 [facility] Comment on above: Order Comment: Annie ricci Type: BLOOD SPECIMEN Ordering Facility: [facility] Address: [address] [place] [address] Result Comment: [place] Diabetes Association guidelines indicate that patients with HgbA1c in the range 5.7-6.4% are at increased risk for development of diabetes, and intervention by lifestyle modification may be beneficial. HgbA1c greater or equal to 6.5% is considered diagnostic of diabetes. Performed By: #### 3 3762-6 #### [facility] CLIA [id number] [address] [place] [address] [place] TSH SerPl-aCncon 07-07-2024 TSH Qn 2.650 m[IU]/L Normal 0.270-4.200 [facility] Comment on above: Order Comment: Annie ricci Type: BLOOD SPECIMEN Ordering Facility: [facility] Address: [address] [place] [address] Performed By: #### 3 3762-6 #### [facility] CLIA [id number] [address] [place] [address] [place] CNOVon 04-07-2024 [facility] Office Visit ([facility] ) BERTA SANCHES ([id number]) 1945 [facility] Date Time Provider Department 04/07/24 9:[address] [facility] During your visit today, we recorded the following information about you: Pulse Blood pressure Weight 91/minute 142/47 62.1 kg Albin Gu APRN.SOCIAL SCIENCE INSTRUCTOR 04/07/2024 9:57 AM Signed [facility] [place] [facility] OUTPATIENT VISIT DATE [...] a boat and take it out on [place] to fish. IMPRESSION: NYHA Functional Class: II [...] moderate car (more content not included)... Normal [facility] BERTA SANCHES ([id number]) 1945 [place] Date Time Provider Department 02/21/[address] [facility] During your visit today, we recorded the [...] understanding of plan of care. 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 Normal [facility] NT-proBNP [facility] 02-14 Natriuretic peptide.B prohormone N-Terminal [Mass/Vol] 5922 pg/mL High <450 [facility] Comment on above: Order Comment: Speci men Type: BLOOD SPECIMEN Ordering Facility: [facility] Address: [address] [place] [address] Performed By: #### 3 3762-6 #### [facility] CLIA [id number] [address] [place] [address] STATES OF [facility] CNPNon 02-07-20[facility] BERTA SANCHES ([id number]) 1945 [facility] Date Time Provider Department 02/07/[address] [facility] During your visit today, we recorded the following information about you: Melida Koo APRN.SOCIAL SCIENCE INSTRUCTOR 02/07/2024 8:28 AM Signed Pt called and left message on voicemail stating that she was feeling much better since following instructions that Albin Gu had given her. She reported that SOB and edema was improved. She has concerns about NTpBNP and when she should have that rechecked. Called patient and she did not answer. Message left for call back. Melida Koo APRN.SOCIAL SCIENCE INSTRUCTOR Allergies As of Date: 02/07/2024 Noted Allergy [...] 02/26/2014 03/21/2022 Intracranial aneurysm [I67.1] 08/30/2015 10/05/2022 group home current use of antiarrhythmic medical*10/20/2016 09/12/2021 Prosthetic [...] and diastoli*09/19/2020 05 (more content not included)... [facility] 02-04-2024 [facility] Telephone ([facility]) BERTA SANCHES ([id number]) 1945 [facility] Date Time Provider Department 02/04/24 MARIBELL KING During your visit today, we recorded the following information about you: Ying Fuentes LPN 02/04/2024 2:12 PM Signed ----- Message from Maribell King APRN.SOCIAL SCIENCE INSTRUCTOR sent at 02/04/2024 2:02 PM EDT ----- [...] [N18.9] Order(s):BASIC METABOLIC PANEL [SQBMP] Order #: [id number] FUTURE Prescriptions as of 02/07/2024 - furosemide [...] 02/26/2014 03/21/2022 Intracranial aneurysm [I67.1] 08/30/2015 10/05/2022 group home current use of antiarrhythmic medical*10/20/2016 09/12/2021 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 [facility] BERTA SANCHES ([id number]) 1945 [facility] Date Time Provider Department 02/04/[address] [facility] During your visit today, we recorded the [...] 02/26/2014 03/21/2022 Intracranial aneurysm [I67.1] 08/30/2015 10/05/2022 group home current use of antiarrhythmic medical*10/20/2016 09/12/2021 Prosthetic [...] blood loss (more content not included)... Normal [facility] Comprehensive metabolic 2000 panelon 02-03-2024 Albumin [Mass/Vol] 4.0 g/dL Normal 3.9-4.9 [facility] Comment on above: Order Comment: Speci men Type: BLOOD SPECIMEN Ordering Facility: [facility] Address: [address] [place] [address] Performed By: #### 3 3762-6 #### [facility] CLIA [id number] [address] [place] [address] [place] ALP [Catalytic activity/Vol] 102 U/L Normal 34-123 [facility] Comment on above: Order Comment: Speci men Type: BLOOD SPECIMEN Ordering Facility: [facility] Address: [address] [place] [address] Performed By: #### 3 3762-6 #### [facility] CLIA [id number] [address] [place] [address] [place] ALT [Catalytic activity/Vol] 10 U/L Normal 7-38 [facility] Comment on above: Order Comment: Speci men Type: BLOOD SPECIMEN Ordering Facility: [facility] Address: [address] [place] [address] Performed By: #### 3 3762-6 #### [facility] CLIA [id number] [address] [place], [place] [address] [place] Anion gap [Moles/Vol] 11 mmol/L Normal 8-15 [facility] Comment on above: Order Comment: Speci men Type: BLOOD SPECIMEN Ordering Facility: [facility] Address: [address] [place] [address] Performed By: #### 3 3762-6 #### [facility] CLIA [id number] [address] [place] [address] [place] AST [Catalytic activity/Vol] 16 U/L Normal 13-35 [facility] Comment on above: Order Comment: Speci men Type: BLOOD SPECIMEN Ordering Facility: [facility] Address: [address] [place] [address] Performed By: #### 3 3762-6 #### [facility] CLIA [id number] [address] [place] [address] [place] Bilirubin [Mass/Vol] 1.1 mg/dL Normal 0.2-1.3 [facility] Comment on above: Order Comment: Speci men Type: BLOOD SPECIMEN Ordering Facility: [facility] Address: [address] [place] [address] Performed By: #### 3 3762-6 #### [facility] CLIA [id number] [address] [place] [address] [place] Calcium [Mass/Vol] 9.5 mg/dL Normal 8.5-10.2 [facility] Comment on above: Order Comment: Speci men Type: BLOOD SPECIMEN Ordering Facility: [facility] Address: [address] [place] [address] Performed By: #### 3 3762-6 #### [facility] CLIA [id number] [address] [place] [address] [place] Chloride [Moles/Vol] 98 mmol/L Normal 98-107 [facility] Comment on above: Order Comment: Speci men Type: BLOOD SPECIMEN Ordering Facility: [facility] Address: [address] [place] [address] Performed By: #### 3 3762-6 #### [facility] CLIA [id number] [address] [place] [address] [place] CO2 [Moles/Vol] 22 mmol/L Normal 22-30 [facility] Comment on above: Order Comment: Speci men Type: BLOOD SPECIMEN Ordering Facility: [facility] Address: [address] [place] [address] Performed By: #### 3 3762-6 #### [facility] CLIA [id number] [address] [place] [address] [place] Creatinine [Mass/Vol] 1.28 mg/dL High 0.58-0.96 [facility] Comment on above: Order Comment: Annie men Type: BLOOD SPECIMEN Ordering Facility: [facility] Address: [address] [place] [address] Performed By: #### 3 3762-6 #### [facility] CLIA [id number] [address] [place] [address] [place] Creatinine and Glomerular filtration rate.predicted panel (S/P/Bld) 43 mL/min/1.73m??? Low >=60 [facility] Comment on above: Order Comment: Annie ricci Type: BLOOD SPECIMEN Ordering Facility: [facility] Address: [address] [place] [address] Result Comment: Mira mated Glomerular Filtration Rate [...] GFR. Performed By: #### 3 3762-6 #### [facility] CLIA [id number] [address] [place] [address] [place] Glucose [Mass/Vol] 147 mg/dL High 74-99 [facility] Comment on above: Order Comment: Annie keiry Type: BLOOD SPECIMEN Ordering Facility: [facility] Address: [address] [place] [address] Result Comment: The [place] Diabetes Association (ADA) provides guidance for cutoff [...] Standards of Medical Care in Diabetes 2016, [place] Diabetes Association. Diabetes Care. 2016.39(Suppl 1). Performed By: #### 3 3762-6 #### [facility] CLIA [id number] [address] [place] [address] [place] Potassium [Moles/Vol] 4.8 mmol/L Normal 3.7-5.1 [facility] Comment on above: Order Comment: Annie rcici Type: BLOOD SPECIMEN Ordering Facility: [facility] Address: [address] [place] [address] Performed By: #### 3 3762-6 #### [facility] CLIA [id number] [address] [place] [address] [place] Protein [Mass/Vol] 7.2 g/dL Normal 6.3-8.0 [facility] Comment on above: Order Comment: Annie ricci Type: BLOOD SPECIMEN Ordering Facility: [facility] Address: [address] [place] [address] Performed By: #### 3 3762-6 #### [facility] CLIA [id number] [address] [place] [address] [place] Sodium [Moles/Vol] 131 mmol/L Low 136-144 [facility] Comment on above: Order Comment: Annie ricci Type: BLOOD SPECIMEN Ordering Facility: [facility] Address: [address] [place] [address] Performed By: #### 3 3762-6 #### [facility] CLIA [id number] [address] [place] [address] [place] Urea nitrogen [Mass/Vol] 34 mg/dL High 7-21 [facility] Comment on above: Order Comment: Speci men Type: BLOOD SPECIMEN Ordering Facility: [facility] Address: [address] [place] [address] Performed By: #### 3 3762-6 #### [facility] CLIA [id number] [address] [place] [address] [place] Lipid 1996 panelon 4 Cholesterol [Mass/Vol] 98 mg/dL Normal <200 [facility] Comment on above: Order Comment: Speci men Type: BLOOD SPECIMEN Ordering Facility: [facility] Address: [address] [place] [address] Result Comment: <200 mg/dL, Desirable 200-239 mg/dL, Borderline high >239 mg/dL, High Performed By: #### 2 4331-1 #### [facility] CLIA [id number] [address] [place] [address] [place] [facility] CLIA [id number] [address] [place] [address] [place] #### 43889-5 #### [facility] CLIA [id number] [address] [place] [address] [place] Cholesterol in HDL [Mass/Vol] 34 mg/dL Low >39 [facility] Comment on above: Order Comment: Speci men Type: BLOOD SPECIMEN Ordering Facility: [facility] Address: [address] [place] [address] Result Comment: 40-5 9 mg/dL, Acceptable >59 mg/dL, High: Negative risk factor for coronary heart disease <40 mg/dL, Low: Positive risk factor for coronary heart disease Performed By: #### 2 4331-1 #### [facility] CLIA [id number] [address] [place] [address] [place] [facility] CLIA [id number] [address] [place] [address] OF ROB[place] #### 95067-2 #### [facility] CLIA [id number] [address] [place] [address] STATES [facility] Cholesterol in LDL [Mass/Vol] 51 mg/dL Normal <100 [facility] Comment on above: Order Comment: Speci men Type: BLOOD SPECIMEN Ordering Facility: [facility] Address: [address] [place] [address] Result Comment: <100 mg/dL, Optimal 100-129 mg/dL, Near optimal/above optimal 130-159 mg/dL, Borderline high 160-189 mg/dL, High >189 mg/dL, Very high Secondary prevention optimal LDL Cholesterol levels are recommended to be < 70 mg/dL Performed By: #### 2 4331-1 #### [facility] CLIA [id number] [address] [place] [address] [place] [facility] CLIA [id number] [address] OF [place] #### 94492-4 #### [facility] CLIA [id number] [address] [place] [address] [place] Cholesterol in LDL/Cholesterol in HDL [Mass ratio] 1.50 {ratio} Normal <2.54 [facility] Comment on above: Order Comment: Speci men Type: BLOOD SPECIMEN Ordering Facility: [facility] Address: [address] [place] [address] Result Comment: Hussein phillips: 1. National Cholesterol Education Program ATP III Guideline At-A-Glance Quick Desk Reference: National Heart, Lung, and Blood [place]. National Institutes of Health. 2001: NIH Publication No. 01-3305. 2. An International Atherosclerosis Society position paper: global recommendations for the management of dyslipidemia: executive summary, Atherosclerosis. 2014: 232(2):410-413. Performed By: #### 2 4331-1 #### [facility] CLIA [id number] [address] [place] [address] [place] [facility] CLIA [id number] [address] [place] [address] [place] #### 87901-8 #### [facility] CLIA [id number] [address] [place] [address] [place] Cholesterol in VLDL [Mass/Vol] 13 mg/dL Normal <30 [facility] Comment on above: Order Comment: Speci men Type: BLOOD SPECIMEN Ordering Facility: [facility] Address: [address] [place] [address] Performed By: #### 2 4331-1 #### [facility] CLIA [id number] [address] [place] [address] [place] [facility] CLIA [id number] [address] [place] [address] [place] #### 63614-9 #### [facility] CLIA [id number] [address] [place] [address] [place] Cholesterol non HDL [Mass/Vol] 64 mg/dL Normal <130 [facility] Comment on above: Order Comment: Speci men Type: BLOOD SPECIMEN Ordering Facility: [facility] Address: [address] [place], [place] [address] Result Comment: <130 mg/dL, Optimal 130-159 mg/dL, Near optimal/above optimal 160-189 mg/dL, Borderline high 190-219 mg/dL, High >219 mg/dL, Very high Secondary prevention optimal non HDL Cholesterol levels are recommended to be <100 mg/dL Performed By: #### 2 4331-1 #### [facility] CLIA [id number] [address] [place] [address] [place] [facility] CLIA [id number] [address] [place] [address] [place] #### 35752-9 #### [facility] CLIA [id number] [address] [place] [address] [place] Cholesterol.total/Gin sterol in HDL [Mass ratio] 2.88 {ratio} Normal <5.10 [facility] Comment on above: Order Comment: Speci men Type: BLOOD SPECIMEN Ordering Facility: [facility] Address: [address] [place] [id number] Performed By: #### 2 4331-1 #### [facility] CLIA [id number] [facility] [place] [address] [place] [facility] CLIA [id number] [address] [place] [address] [place] #### 93904-6 #### [facility] CLIA [id number] [address] [place] [address] [place] FASTING TIME 12 hrs Normal [facility] Comment on above: Order Comment: Speci men Type: BLOOD SPECIMEN Ordering Facility: [facility] Address: [address] [place] [place] [id number] Performed By: #### 2 4331-1 #### [facility] CLIA [id number] [address] [place] [address] [place] [id number] [address] [place] [address] [place] #### 10560-0 #### [facility] CLIA [id number] [address] [place] [address] [place] Triglyceride [Mass/Vol] 67 mg/dL Normal <150 [facility] Comment on above: Order Comment: Speci men Type: BLOOD SPECIMEN Ordering Facility: [facility] Address: [address] [place] [place] [id number] Result Comment: <150 mg/dL, Normal 150-199 mg/dL, Borderline high 200-499 mg/dL, High >499 mg/dL, Very high Performed By: #### 2 4331-1 #### [facility] CLIA [id number] [address] [place] [address] [place] [facility] CLIA [id number] [address] [place] [address] [place] #### 80304-1 #### [facility] CLIA [id number] [address] [place] [address] [place] NT-proBNP SerPl-ncon 02-02 Natriuretic peptide.B prohormone N-Terminal [Mass/Vol] 8577 pg/mL High <450 [facility] Comment on above: Order Comment: Speci men Type: BLOOD SPECIMEN Ordering Facility: [facility] Address: [address] [place] [address] Performed By: #### 2 4331-1 #### [facility] CLIA [id number] [address] [place] [address] [place] [facility] [id number] [address] [place] [address] [place] #### 06836-7 #### [facility] CLIA [id number] [address] [place] [address] [place] Phosphate SerPl-mCncon 02-02 Phosphate [Mass/Vol] 3.3 mg/dL Normal 2.7-4.8 [facility] Comment on above: Order Comment: Speci men Type: BLOOD SPECIMEN Ordering Facility: [facility] Address: [address] [place] [address] Performed By: #### 3 3762-6 #### [facility] CLIA [id number] [address] [place] [address] [place] CNOVon 01-17-2024 CNOV Office Visit (CAWSTR ) BERTA SANCHES ([id number]) 1945 [place] Date Time Provider Department 01/17/24 9:20 AM CARLA BURDICK During your visit today, we recorded the following information about you: Pulse Blood pressure Weight Height 64/minute 157/59 66.8 kg 1.575 m Carla Burdick MD 01/17/2024 10:36 AM [facility] SECTION OF REGIONAL CARDIOLOGY Cardiology ([facility]) [address] [facility] [id number] OUTPATIENT VISIT DATE 01/17/2024 PRIMARY CARE PHYSICIAN: Gerard Le [address] [place] [address] HISTORY OF PRESENT ILLNESS: Ms. 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 Lua PACEMAKER 10/2019 PART. HYSTERECTOMY W/WO RMVL OVARIES/TUBES 1974 h/o cervical cancer ovaries remain PAST SURGICAL HISTORY OF 1996 Aortic valve repair, Dr. Apodaca PAST SURGICAL HISTORY OF 2001 [address] Beltrán, [facility] PAST SURGICAL HISTORY OF 2015 [...] (more content not included)... Normal [facility] ALLIED HEALTHon 11-08-2023 ALLIED HEALTH HNO ID: [id number] Author: SONY LUIS RT(R) Service: Radiology Author [...] PATIENT PRESENTS WITH AN IMPLANTABLE OR ATTACHED PVC MONITOR: No RADIOLOGY DEPARTMENT: General X-ray: Exam(s) Completed: Chest X-Ray PERIPHERAL IV DATA: Not applicable SIGNED BY: RT Risa(R) November 08, 2023 6:37 PM [facility] ED PROV NOTEon 11-08-2023 ED PROV NOTE HNO ID: [id number] Author: SHUBHAM CHAUDHRY MD Service: ? Author Type: Physician Type: ED Provider Notes Filed: 11/08/2023 20:32 Note Text: Left after being seen in triage. Called patient and recommended she come back due to her presenting sxs. States she will come back. SIGNATURE: Shubham Chaudhry MD PATIENT NAME: Berta Sanches DATE: November 08, 2023 TIME: 8:31 PM PAGER/CONTACT #: SHUBHAM CHAUDHRY 11/08/232031 [facility] ED Triage Noteon 11-08-2023 ED Triage Note HNO ID: [id number] Author: SHUBHAM CHAUDHRY MD Service: ? Author [...] TROPONIN T EKG SIGNATURE: Shubham Chaudhry MD [facility] EKGon 11-08-2023 Electrocardiogram Ventricular Rate : 1 13 BPM Atrial Rate : 0 BPM P-R Interval : 250 ms QRS Duration : 102 ms Q-T Interval : 320 ms QTC Calculation(Bazett) : 439 ms Calculated P [employer] [employer] : -38 degrees Calculated R [place] : -29 degrees Calculated T [employer] : 132 degrees Sinus tachycardia Prolonged MI interval LVH with secondary repolarization abnormality Abnormal ECG No Stemi 1746 Confirmed by MD CHAUDHRY BLAIN ([id number]), supervising film or videotape editor BRYON MIJARES ([id number]) on 11/08/2023 10:31:52 PM NAME : BERTA SANCHES PID : [id number] : 1945 Gender : Female Race : ORD : Procedure Date : Nov 08 2023 17:44:03 Edit Date : Nov 08 2023 22:31:54 Diagnosis: Sinus tachycardia Prolonged MI interval LVH with secondary repolarization abnormality Abnormal ECG No Stemi 1746 Confirmed by MD CHAUDHRY BLAIN ([id number]), supervising film or videotape editor BRYON MIJARES ([id number]) on 11/08/2023 10:31:52 PM Test Reason : Location : 402 : FVED TRIAGE Overread By : MD CHAUDHRY BLAIN Edited By : BRYON MIJARES Referred By : , Acquired by : [id number], Normal [facility] XR CHEST 2V FRONTAL/LATon XR [...] Query hilar lymphadenopathy. No confluent alveolar opacity. Maintenance Mechanic: PSCB Transcribe Date/Time: Nov 08 2023 7:38P Dictated by : LIZZIE LARA MD This examination was interpreted and the report reviewed and electronically signed by: LIZZIE LARA MD on Nov 08 2023 7:44PM EST [id number] Normal [facility] US Lower extremity veins - b ilateralon 10-20-2023 Non-Invasive Vascular Laboratory [place] [facility] Lower Extremity Venous Duplex [...] below for Image [facility] ECG COMPLETEon 10-19-2023 Atrial Rate 125 BPM [facility] Calculated R [place] [place] -40 degrees [facility] Calculated T [place] -34 degrees [facility] QRS Duration 106 ms [facility] QT Interval 410 ms [facility] QTC Calculation (Bazett) 490 ms [facility] Ventricular Rate 86 BPM [facility] Chest PA and Lateralon IMPRESSION: No acute radiographic abnormality. Cardiomegaly Maintenance Mechanic: JAMES Transcribe Date/Time: Oct 18 2023 4:16P Dictated by : MICHAELLE BAHENA MD This examination was interpreted and the report reviewed and electronically signed by: MICHAELLE BAHENA MD on Oct 18 2023 4:18PM [facility] * * *Final Report* [...] soft tissues: Unremarkable. DIVISION OF RADIOLOGY Provider, [facility] - 10/18/2023 * * *Final [...] IMPRESSION IMPRESSION: No acute radiographic abnormality. Cardiomegaly Maintenance Mechanic: JAMES Transcribe Date/Time: Oct 18 2023 4:16P Dictated by : MICHAELLE BAHENA MD This examination was interpreted and the report reviewed and electronically signed by: MICHAELLE BAHENA MD on Oct 18 2023 4:18PM [facility] Radiology Study observation (narrative) Chris molina [facility] XR Chest PA and LateralOrder ed By: Ccf Provider on 10-18-2023 [facility] No Panel Informationon 10-15 BLANK _ [facility] Implant Date 10/21/2020 [facility] PACEMAKER REMOTE CHECKon AV Delay Adaptive Paced Minimum (ms) 180 ms [facility] AV Delay Adaptive Sensed Minimum (ms) 150 ms [facility] AV Delay Adaptive Status DISABLED [facility] Battery Voltage (volts) 3.02 V C [facility] Pavan RA Pacing Amplitude (volts) 1.5 V [facility] Pavan RA Pacing Polarity BI [facility] Pavan RA Pacing Pulse Width (ms) 0.4 ms [facility] Pavan RA Sensing Amplitude (mvolts) 0.3 mV [facility] Pavan RA Sensing Blanking Period (ms) 150 ms [facility] Pavan RA Sensing Polarity BI [facility] Pavan RA Sensing Refractory Period (ms) Auto [facility] Pavan RV Pacing Amplitude (volts) 2 V [facility] Pavan RV Pacing Polarity BI [facility] Pavan RV Pacing Pulse Width (ms) 0.4 ms [facility] Pavan RV Sensing Amplitude (mvolts) 0.9 mV [facility] Pavan RV Sensing Blanking Period (ms) 200 ms [facility] Pavan RV Sensing Polarity BI [facility] Hysteresis Rate (bpm) DISABLED [facility] Lead1 Mfg MDT [facility] Lead2 Mfg MDT [facility] Location RV [facility] Location RA [facility] Lower Rate (bpm) 60 {beats}/min [facility] Max Sensor Rate (bmp) 120 {beats}/min [facility] Model [id number] Lamoni XT DR MRI Cl [facility] Model 3830 SelectSecure MR I SureScan [facility] Model 5076 CapSureFix Novus [facility] PM-Device Mfg MDT [facility] PM-Percent Pacing (A) 7.59 % [facility] PM-Percent Pacing (V) 18.89 % [facility] PM-PMT Intervention ENABLED [facility] PM-PVC Intervention ENABLED [facility] PM-Rate Modulation Acceleration Reaction 30 s [facility] PM-Rate Modulation ADL Rate (bpm) 95 {beats}/min [facility] PM-Rate Modulation Deceleration Exercise [facility] PM-Rate Modulation [place] 3 [facility] PM-Rate Modulation Threshold Low [facility] RA Bipolar Impedance ohms 513 ohm [facility] RA Unipolar Impedance ohms 304 ohm [facility] RV Bipolar Impedance ohms 456 ohm [facility] RV Unipolar Impedance [address] [facility] Serial Number [id number] [facility] Serial Number [id number] [facility] Serial Number [id number] [facility] Thresh RA Capture Amplitude (volts) 0.75 V [facility] Thresh RA Capture Duration (ms) 0.4 ms [facility] Thresh RA Sensing Amplitude (mvolts) 0.5 mV [facility] Thresh RV Capture Amplitude (volts) 1 V [facility] Thresh RV Capture Duration (ms) 0.4 ms [facility] Thresh RV Sensing Amplitude (mvolts) 12.5 mV [facility] Tracking Rate (bpm) 120 {beats}/min [facility] INFLUENZA A&B MOLECULAR (POC )on 07-05-2023 Flu A (POCT) Negative Negative [facility] Flu B (POCT) Negative Negative [facility] Procedural Control Valid [facility] XR Foot - right AP and Later al and obliqueon 06-03-2023 IMPRESSION: 1. Nondisplaced fracture of the base of the right fifth metatarsal 2. Right first metatarsophalangeal joint space narrowing and periarticular erosions, which can be seen with gout Maintenance Mechanic: JAMES Transcribe Date/Time: Jun 03 2023 4:34P Dictated by : JUDSON JACINTO MD This examination was interpreted and the report reviewed and electronically signed by: JUDSON JACINTO MD on Jun 03 2023 4:36PM [facility] * * *Final Report* [...] soft tissue swelling. DIVISION OF RADIOLOGY Provider, [facility]03/[facility]23 * * *Final Report* * [...] erosions, which can be seen with gout Maintenance Mechanic: JAMES Transcribe Date/Time: Jun 03 2023 4:34P Dictated by : JUDSON JACINTO MD This examination was interpreted and the report reviewed and electronically signed by: JUDSON JACINTO MD on Jun 03 2023 4:36PM EST [facility] XR Foot - right AP and Later al and obliqueOrdered By: Cc Provider on 06-03-2023 [facility] XR Foot - right AP and Later al and obliqueon 06-01-2023 Radiology Study observation (narrative) [facility] CT CHEST WO IVCONon 04-30-20 [facility] XR Finger - right AP and Lat eral and obliqueon 04-15-2023 IMPRESSION: No acute osseous abnormality Maintenance Mechanic: JAMES Transcribe Date/Time: Apr 15 2023 11:58A Dictated by : JUDSON JACINTO MD This examination was interpreted and the report reviewed and electronically signed by: JUDSON JACINTO MD on Apr 15 2023 11:59AM [facility] * * *Final Report* [...] No periarticular erosions. DIVISION OF RADIOLOGY Provider, [facility] - 04/15/2023 * * *Final [...] erosions. IMPRESSION IMPRESSION: No acute osseous abnormality Maintenance Mechanic: PSCB Transcribe Date/Time: Apr 15 2023 11:58A Dictated by : JUDSON JACINTO MD This examination was interpreted and the report reviewed and electronically signed by: JUDSON JACINTO MD on Apr 15 2023 11:59AM EST [facility] XR Finger - right AP and Lat eral and obliqueOrdered By: Ccf Provider on 04-15-2023 [facility] XR Finger - right AP and Lat eral and obliqueon 04-12-2023 Radiology Study observation (narrative) [facility] No Panel Informationon 03-28 BLANK _ [facility] Implant Date 10/21/2020 [facility] PACEMAKER REMOTE CHECKon AV Delay Adaptive Paced Minimum (ms) 180 ms [facility] AV Delay Adaptive Sensed Minimum (ms) 150 ms [facility] AV Delay Adaptive Status DISABLED [facility] Battery Voltage (volts) 3.02 V [facility] Pavan RA Pacing Amplitude (volts) 1.5 V [facility] Pavan RA Pacing Polarity BI [facility] Pavan RA Pacing Pulse Width (ms) 0.4 ms [facility] Pavan RA Sensing Amplitude (mvolts) 0.3 mV [facility] Pavan RA Sensing Blanking Period (ms) 150 ms [facility] Pavan RA Sensing Polarity BI [facility] Pavan RA Sensing Refractory Period (ms) Auto [facility] Pavan RV Pacing Amplitude (volts) 2 V [facility] Pavan RV Pacing Polarity BI [facility] Pavan RV Pacing Pulse Width (ms) 0.4 ms [facility] Pavan RV Sensing Amplitude (mvolts) 0.9 mV [facility] Pavan RV Sensing Blanking Period (ms) 200 ms [facility] Pavan RV Sensing Polarity BI [facility] Hysteresis Rate (bpm) DISABLED [facility] Lead1 Mfg MDT [facility] Lead2 Mfg MDT [facility] Location RV [facility] Location RA [facility] Lower Rate (bpm) 60 {beats}/min [facility] Max Sensor Rate (bmp) 120 {beats}/min [facility] Model [id number] Sania XT DR MRI Cl [facility] Model 3830 SelectSecure MR I SureScan [facility] Model 5076 CapSureFix Novus [facility] PM-Device Mfg MDT [facility] PM-Percent Pacing (A) 96.66 % [facility] PM-Percent Pacing (V) 1.41 % [facility] PM-PMT Intervention ENABLED [facility] PM-PVC Intervention ENABLED [facility] PM-Rate Modulation Acceleration Reaction 30 s [facility] PM-Rate Modulation ADL Rate (bpm) 95 {beats}/min [facility] PM-Rate Modulation Deceleration Exercise [facility] PM-Rate Modulation [place] 3 [facility] PM-Rate Modulation Threshold Low [facility] RA Bipolar Impedance ohms 475 ohm [facility] RA Unipolar Impedance ohms 304 ohm [facility] RV Bipolar Impedance ohms 437 ohm [facility] RV Unipolar Impedance [address] [facility] Serial Number [id number] [facility] Serial Number [id number] [facility] Serial Number [id number] [facility] Thresh RA Capture Amplitude (volts) 0.75 V [facility] Thresh RA Capture Duration (ms) 0.4 ms [facility] Thresh RA Sensing Amplitude (mvolts) 0.75 mV [facility] Thresh RV Capture Amplitude (volts) 1 V [facility] Thresh RV Capture Duration (ms) 0.4 ms [facility] Thresh RV Sensing Amplitude (mvolts) 12.375 mV [facility] Tracking Rate (bpm) 120 {beats}/min [facility] No Panel Informationon 12-29 BLANK _ [facility] Implant Date 10/21/2020 [facility] PACEMAKER REMOTE CHECKon AV Delay Adaptive Paced Minimum (ms) 180 ms [facility] AV Delay Adaptive Sensed Minimum (ms) 150 ms [facility] AV Delay Adaptive Status DISABLED [facility] Battery Voltage (volts) 3.02 V C [facility] Pavan RA Pacing Amplitude (volts) 1.5 V [facility] Pavan RA Pacing Polarity BI [facility] Pavan RA Pacing Pulse Width (ms) 0.4 ms [facility] Pavan RA Sensing Amplitude (mvolts) 0.3 mV [facility] Apvan RA Sensing Blanking Period (ms) 150 ms [facility] Pavan RA Sensing Polarity BI [facility] Pavan RA Sensing Refractory Period (ms) Auto [facility] Pavan RV Pacing Amplitude (volts) 2 V [facility] Pavan RV Pacing Polarity BI [facility] Pavan RV Pacing Pulse Width (ms) 0.4 ms [facility] Pavan RV Sensing Amplitude (mvolts) 0.9 mV [facility] Pavan RV Sensing Blanking Period (ms) 200 ms [facility] Pavan RV Sensing Polarity BI [facility] Hysteresis Rate (bpm) DISABLED [facility] Lead1 Mfg MDT [facility] Lead2 Mfg MDT [facility] Location RV [facility] Location RA [facility] Lower Rate (bpm) 60 {beats}/min [facility] Max Sensor Rate (bmp) 120 {beats}/min [facility] Model [id number] Lamoni XT DR MRI Cl [facility] Model 3830 SelectSecure MR I SureScan [facility] Model 5076 CapSureFix Novus [facility] PM-Device Mfg MDT [facility] PM-Percent Pacing (A) 79.14 % [facility] PM-Percent Pacing (V) 5.48 % [facility] PM-PMT Intervention ENABLED [facility] PM-PVC Intervention ENABLED [facility] PM-Rate Modulation Acceleration Reaction 30 s [facility] PM-Rate Modulation ADL Rate (bpm) 95 {beats}/min [facility] PM-Rate Modulation Deceleration Exercise [facility] PM-Rate Modulation [place] 3 [facility] PM-Rate Modulation Threshold Low [facility] RA Bipolar Impedance ohms 437 ohm [facility] RA Unipolar Impedance ohms 304 ohm [facility] RV Bipolar Impedance ohms 437 ohm [facility] RV Unipolar Impedance [address] [facility] Serial Number [id number] [facility] Serial Number [id number] [facility] Serial Number [id number] [facility] Thresh RA Capture Amplitude (volts) 0.625 V [facility] Thresh RA Capture Duration (ms) 0.4 ms [facility] Thresh RA Sensing Amplitude (mvolts) 0.875 mV [facility] Thresh RV Capture Amplitude (volts) 1 V [facility] Thresh RV Capture Duration (ms) 0.4 ms [facility] Thresh RV Sensing Amplitude (mvolts) 10.75 mV [facility] Tracking Rate (bpm) 120 {beats}/min [facility] MRA BRAIN WO/W IVCONon 12-10 MRA BRAIN WO/W IVCON * * *Final Report* * * DATE OF EXAM: Dec 10 2022 1:14PM [facility] 0273 - MRA BRAIN WO/W IVCON / PROCEDURE REASON: multiple diagnoses * * * * Physician Interpretation * * * * EXAMINATION: MRA BRAIN WO/W IVCON CLINICAL HISTORY: Nonruptured acom aneurysm follow-up. TECHNIQUE: Short TR short TE SPGR through the [place] after contrast. Intracranial 3D [id number] MRA with post-processing performed at the modality [...] aneurysm coiling. No additional intracranial aneurysms identified. Maintenance Mechanic: JAMES Transcribe Date/Time: Dec 10 2022 1:31P Dictated by : TYE REN MD This examination was interpreted and the report reviewed and electronically signed by: TYE REN MD on Dec 10 2022 1:38PM EST [id number] Normal [facility] US KIDNEY/BLADDERon 10-07-19 Radiology Result ACTIONABLE Abnormal [facility] No Panel Informationon 09-27 BLANK _ [facility] Implant Date 10/21/2020 [facility] PACEMAKER REMOTE CHECKon AV Delay Adaptive Paced Minimum (ms) 180 ms [facility] AV Delay Adaptive Sensed Minimum (ms) 150 ms [facility] AV Delay Adaptive Status DISABLED [facility] Battery Voltage (volts) 3.02 V [facility] Pavan RA Pacing Amplitude (volts) 1.5 V [facility] Pavan RA Pacing Polarity BI [facility] Pavan RA Pacing Pulse Width (ms) 0.4 ms [facility] Pavan RA Sensing Amplitude (mvolts) 0.3 mV [facility] Pavan RA Sensing Blanking Period (ms) 150 ms [facility] Pavan RA Sensing Polarity BI [facility] Pavan RA Sensing Refractory Period (ms) Auto [facility] Pavan RV Pacing Amplitude (volts) 2 V [facility] Pavan RV Pacing Polarity BI [facility] Pavan RV Pacing Pulse Width (ms) 0.4 ms [facility] Pavan RV Sensing Amplitude (mvolts) 0.9 mV [facility] Pavan RV Sensing Blanking Period (ms) 200 ms [facility] Pavan RV Sensing Polarity BI [facility] Hysteresis Rate (bpm) DISABLED [facility] Lead1 Mfg MDT [facility] Lead2 Mfg MDT [facility] Location RV [facility] Location RA [facility] Lower Rate (bpm) 60 {beats}/min [facility] Max Sensor Rate (bmp) 120 {beats}/min [facility] Model [id number] Sania XT DR MRI Cl [facility] Model 3830 SelectSecure MR I SureScan [facility] Model 5076 CapSureFix [address] PM-Device Mfg MDT [facility] PM-Percent Pacing (A) 46.27 % [facility] PM-Percent Pacing (V) 11.47 % [facility] PM-PMT Intervention ENABLED [facility] PM-PVC Intervention ENABLED [facility] PM-Rate Modulation Acceleration Reaction 30 s [facility] PM-Rate Modulation ADL Rate (bpm) 95 {beats}/min [facility] PM-Rate Modulation Deceleration Exercise [facility] PM-Rate Modulation [place] 3 [facility] PM-Rate Modulation Threshold Low [facility] RA Bipolar Impedance ohms 494 ohm [facility] RA Unipolar Impedance ohms 285 ohm [facility] RV Bipolar Impedance ohms 437 ohm [facility] RV Unipolar Impedance [address] [facility] Serial Number [id number] [facility] Serial Number [id number] [facility] Serial Number [id number] [facility] Thresh RA Capture Amplitude (volts) 0.5 V [facility] Thresh RA Capture Duration (ms) 0.4 ms [facility] Thresh RA Sensing Amplitude (mvolts) 0.5 mV [facility] Thresh RV Capture Amplitude (volts) 1 V [facility] Thresh RV Capture Duration (ms) 0.4 ms [facility] Thresh RV Sensing Amplitude (mvolts) 13.375 mV [facility] Tracking Rate (bpm) 120 {beats}/min [facility] No Panel Informationon 06-30 BLANK _ [facility] Implant Date 10/21/2020 [facility] PACEMAKER REMOTE CHECKon AV Delay Adaptive Paced Minimum (ms) 180 ms [facility] AV Delay Adaptive Sensed Minimum (ms) 150 ms [facility] AV Delay Adaptive Status DISABLED [facility] Battery Voltage (volts) 3.03 V [facility] Pavan RA Pacing Amplitude (volts) 1.5 V [facility] Pavan RA Pacing Polarity BI [facility] Pavan RA Pacing Pulse Width (ms) 0.4 ms [facility] Pavan RA Sensing Amplitude (mvolts) 0.3 mV [facility] Pavan RA Sensing Blanking Period (ms) 150 ms [facility] Pavan RA Sensing Polarity BI [facility] Pavan RA Sensing Refractory Period (ms) Auto [facility] Pavan RV Pacing Amplitude (volts) 2.5 V [facility] Pavan RV Pacing Polarity BI [facility] Pavan RV Pacing Pulse Width (ms) 0.4 ms [facility] Pavan RV Sensing Amplitude (mvolts) 0.9 mV [facility] Pavan RV Sensing Blanking Period (ms) 200 ms [facility] Pavan RV Sensing Polarity BI [facility] Hysteresis Rate (bpm) DISABLED [facility] Lead1 Mfg MDT [facility] Lead2 Mfg MDT [facility] Location RV [facility] Location RA [facility] Lower Rate (bpm) 60 {beats}/min [facility] Max Sensor Rate (bmp) 120 {beats}/min [facility] Model [id number] Lamoni XT DR MRI Cl [facility] Model 3830 SelectSecure MR I SureScan [facility] Model 5076 CapSureFix [address] PM-Device Mfg MDT [facility] PM-Percent Pacing (A) 53.59 % [facility] PM-Percent Pacing (V) 11.72 % [facility] PM-PMT Intervention ENABLED [facility] PM-PVC Intervention ENABLED [facility] PM-Rate Modulation Acceleration Reaction 30 s [facility] PM-Rate Modulation ADL Rate (bpm) 95 {beats}/min [facility] PM-Rate Modulation Deceleration Exercise [facility] PM-Rate Modulation [place] 3 [facility] PM-Rate Modulation Threshold Low [facility] RA Bipolar Impedance ohms 456 ohm [facility] RA Unipolar Impedance ohms 304 ohm [facility] RV Bipolar Impedance ohms 437 ohm [facility] RV Unipolar Impedance [address] [facility] Serial Number [id number] [facility] Serial Number [id number] [facility] Serial Number [id number] [facility] Thresh RA Capture Amplitude (volts) 0.5 V [facility] Thresh RA Capture Duration (ms) 0.4 ms [facility] Thresh RA Sensing Amplitude (mvolts) 0.375 mV [facility] Thresh RV Capture Amplitude (volts) 1.125 V [facility] Thresh RV Capture Duration (ms) 0.4 ms [facility] Thresh RV Sensing Amplitude (mvolts) 9.25 mV [facility] Tracking Rate (bpm) 120 {beats}/min [facility] UA DIP, URINE (POC)on 2021 BILIRUBIN UA (POCT) Negative Negative [facility] CLARITY UA (POCT) Clear [facility] COLOR UA (POCT) Yellow [facility] GLUCOSE UA (POCT) Negative Negative mg/dL [facility] HEMOGLOBIN/BLOOD UA (POCT) Negative Negative [facility] KETONE UA (POCT) Negative Negative mg/dL [facility] LEUKOCYTES UA (POCT) Negative Negative [facility] NITRITE UA (POCT) Negative Negative [facility] PH UA (POCT) 5.5 4.5 - 8.0 [facility] Protein Ql (U) 30 mg/dL Abnormal Negative mg/dL [facility] SPECIFIC GRAVITY UA (POCT) 1.020 1.005 - 1.030 [facility] UROBILINOGEN UA (POCT) 0.2 E.U./dL Cat l E.U./dL [facility] CBC W Auto Differential pane l (Bld)on 04-06-2022 Abs Immature Gran 0.03 k/uL <0.10 k/uL [facility] Basophils (Bld) [#/Vol] 0.08 10*3/uL <0.11 k/uL [facility] Basophils/100 WBC (Bld) 1.1 % [facility] Differential cell count method Nom (Bld) Auto [facility] Eosinophils (Bld) [#/Vol] 0.11 10*3/uL <0.46 k/uL [facility] Eosinophils/100 WBC (Bld) 1.5 % [facility] Erythrocyte distribution width (RBC) [Ratio] 19.9 % High 11.5 - 15.0 % [facility] Hematocrit (Bld) [Volume fraction] 31.3 % Low 36.0 - 46.0 % [facility] Hemoglobin (Bld) [Mass/Vol] 9.2 g/dL Low 11.5 - 15.5 g/dL [facility] Immature Gran % 0.4 % [facility] Lymphocytes (Bld) [#/Vol] 2.05 10*3/uL 1.00 - 4.00 k/uL [facility] Lymphocytes/100 WBC (Bld) 27.9 % [facility] MCH (RBC) [Entitic mass] 24.5 pg Low 26.0 - 34.0 pg [facility] MCHC (RBC) [Mass/Vol] 29.4 g/dL Low 30.5 - 36.0 g/dL [facility] MCV (RBC) [Entitic vol] 83.5 fL 80.0 - 100.0 fL [facility] Monocytes (Bld) [#/Vol] 0.93 10*3/uL High <0.87 k/uL [facility] Monocytes/100 WBC (Bld) 12.7 % C [facility] Neutrophils (Bld) [#/Vol] 4.14 10*3/uL 1.45 - 7.50 k/uL [facility] Neutrophils/100 WBC (Bld) 56.4 % [facility] Nucleated RBC (Bld) [#/Vol] <0.01 k/uL [facility] Nucleated RBC/100 WBC (Bld) [Ratio] 0.0 /100 WBC [facility] Platelet mean volume (Bld) [Entitic vol] 9.8 fL 9.0 - 12.7 fL [facility] Platelets (Bld) [#/Vol] 266 10*3/uL 150 - 400 k/uL [facility] RBC (Bld) [#/Vol] 3.75 10*6/uL Low 3.90 - 5.2 0 m/uL [facility] WBC (Bld) [#/Vol] 7.34 10*3/uL 3.70 - 11. 00 k/uL [facility] FERRITIN BLDon 04-06-2022 Ferritin [Mass/Vol] 27.1 ng/mL 14.7 - 2 05.1 ng/mL [facility] Iron and Iron binding capaci ty panelon 04-06-2022 Iron [Mass/Vol] 26 ug/dL Low 41 - 186 ug/dL [facility] Iron binding capacity [Mass/Vol] 454 ug/dL High 232 - 386 ug/dL [facility] Iron/TIBC [Molar ratio] 5.7 % Low 15.0 - 57.0 % [facility] No Panel Informationon 03-28 BLANK _ [facility] Implant Date 10/21/2020 [facility] PACEMAKER REMOTE CHECKon AV Delay Adaptive Paced Minimum (ms) 180 ms [facility] AV Delay Adaptive Sensed Minimum (ms) 150 ms [facility] AV Delay Adaptive Status DISABLED [facility] Battery Voltage (volts) 3.03 V [facility] Pavan RA Pacing Amplitude (volts) 1.5 V [facility] Pavan RA Pacing Polarity BI [facility] Pavan RA Pacing Pulse Width (ms) 0.4 ms [facility] Pavan RA Sensing Amplitude (mvolts) 0.3 mV [facility] Pavan RA Sensing Blanking Period (ms) 150 ms [facility] Pavan RA Sensing Polarity BI [facility] Pavan RA Sensing Refractory Period (ms) Auto [facility] Pavan RV Pacing Amplitude (volts) 2 V [facility] Pavan RV Pacing Polarity BI [facility] Pavan RV Pacing Pulse Width (ms) 0.4 ms [facility] Pavan RV Sensing Amplitude (mvolts) 0.9 mV [facility] Pavan RV Sensing Blanking Period (ms) 200 ms [facility] Pavan RV Sensing Polarity BI [facility] Hysteresis Rate (bpm) DISABLED [facility] Lead1 Mfg MDT [facility] Lead2 Mfg MDT [facility] Location RV [facility] Location RA [facility] Lower Rate (bpm) 60 {beats}/min [facility] Max Sensor Rate (bmp) 120 {beats}/min [facility] Model [id number] Sania XT DR MRI Cl [facility] Model 3830 SelectSecure MR I SureScan [facility] Model 5076 CapSureFix [address] PM-Device Mfg MDT [facility] PM-Percent Pacing (A) 13.82 % [facility] PM-Percent Pacing (V) 9.69 % [facility] PM-PMT Intervention ENABLED [facility] PM-PVC Intervention ENABLED [facility] PM-Rate Modulation Acceleration Reaction 30 s [facility] PM-Rate Modulation ADL Rate (bpm) 95 {beats}/min [facility] PM-Rate Modulation Deceleration Exercise [facility] PM-Rate Modulation [place] 3 [facility] PM-Rate Modulation Threshold Low [facility] RA Bipolar Impedance ohms 437 ohm [facility] RA Unipolar Impedance ohms 285 ohm [facility] RV Bipolar Impedance ohms 418 ohm [facility] RV Unipolar Impedance [address] [facility] Serial Number [id number] [facility] Serial Number [id number] [facility] Serial Number [id number] [facility] Thresh RA Capture Amplitude (volts) 0.75 V [facility] Thresh RA Capture Duration (ms) 0.4 ms [facility] Thresh RA Sensing Amplitude (mvolts) 0.25 mV [facility] Thresh RV Capture Amplitude (volts) 1 V [facility] Thresh RV Capture Duration (ms) 0.4 ms [facility] Thresh RV Sensing Amplitude (mvolts) 13.375 mV [facility] Tracking Rate (bpm) 120 {beats}/min [facility] ECHO TRANSESOPHAGEALon 03-03 [facility] No Panel Informationon 03-03 BLANK _ [facility] Implant Date 10/21/2020 [facility] PACEMAKER CLINIC CHECKon AV [place]ay Adaptive Paced Minimum (ms) 180 ms [facility] AV Delay Adaptive Sensed Minimum (ms) 150 ms [facility] AV Delay Adaptive Status DISABLED [facility] Battery Voltage (volts) 3.03 V C [facility] Pavan RA Pacing Amplitude (volts) 1.5 V [facility] Pavan RA Pacing Polarity BI [facility] Pavan RA Pacing Pulse Width (ms) 0.4 ms [facility] Pavan RA Sensing Amplitude (mvolts) 0.3 mV [facility] Pavan RA Sensing Blanking Period (ms) 150 ms [facility] Pavan RA Sensing Polarity BI [facility] Pavan RA Sensing Refractory Period (ms) Auto [facility] Pavan RV Pacing Amplitude (volts) 2 V [facility] Pavan RV Pacing Polarity BI [facility] Pavan RV Pacing Pulse Width (ms) 0.4 ms [facility] Pavan RV Sensing Amplitude (mvolts) 0.9 mV [facility] Pavan RV Sensing Blanking Period (ms) 200 ms [facility] Pavan RV Sensing Polarity BI [facility] Hysteresis Rate (bpm) DISABLED [facility] Lead1 Mfg MDT [facility] Lead2 Mfg MDT [facility] Location RV [facility] Location RA [facility] Lower Rate (bpm) 60 {beats}/min [facility] Max Sensor Rate (bmp) 120 {beats}/min [facility] Model [id number] Lamoni XT DR MRI Cl [facility] Model 3830 SelectSecure MR I SureScan [facility] Model 5076 CapSureFix [address] Pacemaker Dependent? NO [facility] PM-Device Mfg MDT [facility] PM-Percent Pacing (A) 3.4 % [facility] PM-Percent Pacing (V) 14.6 % [facility] PM-PMT Intervention ENABLED [facility] PM-PVC Intervention ENABLED [facility] PM-Rate Modulation Acceleration Reaction 30 s [facility] PM-Rate Modulation ADL Rate (bpm) 95 {beats}/min [facility] PM-Rate Modulation Deceleration Exercise [facility] PM-Rate Modulation [place] 3 [facility] PM-Rate Modulation Threshold Low [facility] RA Bipolar Impedance ohms 456 ohm [facility] RA Unipolar Impedance ohms 285 ohm [facility] Rhythm Atrial Fibrillation [facility] RV Bipolar Impedance ohms 437 ohm [facility] RV Unipolar Impedance [address] [facility] Serial Number [id number] [facility] Serial Number [id number] [facility] Serial Number [id number] [facility] Thresh RA Capture Amplitude (volts) 0.75 V [facility] Thresh RA Capture Duration (ms) 0.4 ms [facility] Thresh RA Sensing Amplitude (mvolts) 0.375 mV [facility] Thresh RV Capture Amplitude (volts) 0.875 V [facility] Thresh RV Capture Duration (ms) 0.4 ms [facility] Thresh RV Sensing Amplitude (mvolts) 12.75 mV [facility] Tracking Rate (bpm) 120 {beats}/min [facility] HEMOGLOBIN (HGB)on Hemoglobin (Bld) [Mass/Vol] 8.1 g/dL Low 11.5 - 15.5 g/dL [facility] Hematocrit Auto (Bld) [Volum e fraction]on 02-20-2022 Hematocrit (Bld) [Volume fraction] 26.4 % Low 36.0 - 46.0 % [facility] No Panel Informationon 01-09 BLANK _ [facility] Implant Date 10/21/2020 [facility] PACEMAKER CLINIC CHECKon AV [place] Adaptive Paced Minimum (ms) 180 ms [facility] AV Delay Adaptive Sensed Minimum (ms) 150 ms [facility] AV Delay Adaptive Status DISABLED [facility] Battery Voltage (volts) 3.04 V [facility] Pavan RA Pacing Amplitude (volts) 1.5 V [facility] Pavan RA Pacing Polarity BI [facility] Pavan RA Pacing Pulse Width (ms) 0.4 ms [facility] Pavan RA Sensing Amplitude (mvolts) 0.3 mV [facility] Pavan RA Sensing Blanking Period (ms) 150 ms [facility] Pavan RA Sensing Polarity BI [facility] Pavan RA Sensing Refractory Period (ms) Auto [facility] Pavan RV Pacing Amplitude (volts) 2 V [facility] Pavan RV Pacing Polarity BI [facility] Pavan RV Pacing Pulse Width (ms) 0.4 ms [facility] Pavan RV Sensing Amplitude (mvolts) 0.9 mV [facility] Pavan RV Sensing Blanking Period (ms) 200 ms [facility] Pavan RV Sensing Polarity BI [facility] Hysteresis Rate (bpm) DISABLED [facility] Lead1 Mfg MDT [facility] Lead2 Mfg MDT [facility] Location RV [facility] Location RA [facility] Lower Rate (bpm) 60 {beats}/min [facility] Max Sensor Rate (bmp) 120 {beats}/min [facility] Model [id number] Lamoni XT DR MRI Cl [facility] Model 3830 SelectSecure MR I SureScan [facility] Model 5076 CapSureFix Novus [facility] Pacemaker Dependent? NO [facility] PM-Device Karlg MDT [facility] PM-Percent Pacing (A) 32.01 % [facility] PM-Percent Pacing (V) 13.19 % [facility] PM-PMT Intervention ENABLED [facility] PM-PVC Intervention ENABLED [facility] PM-Rate Modulation Acceleration Reaction 30 s [facility] PM-Rate Modulation ADL Rate (bpm) 95 {beats}/min [facility] PM-Rate Modulation Deceleration Exercise [facility] PM-Rate Modulation [place] 3 [facility] PM-Rate Modulation Threshold Low [facility] RA Bipolar Impedance ohms 456 ohm [facility] RA Unipolar Impedance ohms 285 ohm [facility] Rhythm Atrial Fibrillation [facility] RV Bipolar Impedance ohms 437 ohm [facility] RV Unipolar Impedance [address] [facility] Serial Number [id number] [facility] Serial Number [id number] [facility] Serial Number [id number] [facility] Thresh RA Capture Amplitude (volts) 0.75 V [facility] Thresh RA Capture Duration (ms) 0.4 ms [facility] Thresh RA Sensing Amplitude (mvolts) 0.375 mV [facility] Thresh RV Capture Amplitude (volts) 1 V [facility] Thresh RV Capture Duration (ms) 0.4 ms [facility] Thresh RV Sensing Amplitude (mvolts) 13.6 mV [facility] Tracking Rate (bpm) 120 {beats}/min [facility] EGD DIAGNOSTICon 01-02-2022 [facility] CBC panel Auto (Bld)on 12-26 Erythrocyte distribution width (RBC) [Ratio] 16.8 % High 11.5 - 15.0 % [facility] Hematocrit (Bld) [Volume fraction] 28.2 % Low 36.0 - 46.0 % [facility] Hemoglobin (Bld) [Mass/Vol] 8.1 g/dL Low 11.5 - 15.5 g/dL [facility] MCH (RBC) [Entitic mass] 24.5 pg Low 26.0 - 34.0 pg [facility] MCHC (RBC) [Mass/Vol] 28.7 g/dL Low 30.5 - 36.0 g/dL [facility] MCV (RBC) [Entitic vol] 85.5 fL 80.0 - 100.0 fL [facility] Nucleated RBC (Bld) [#/Vol] 10*3/uL <0.01 k/uL [facility] Platelet mean volume (Bld) [Entitic vol] 10.3 fL 9.0 - 12.7 fL [facility] Platelets (Bld) [#/Vol] 248 10*3/uL 150 - 400 k/uL [facility] RBC (Bld) [#/Vol] 3.30 10*6/uL Low 3.90 - 5.2 0 m/uL [facility] WBC (Bld) [#/Vol] 10.54 10*3/uL 3.70 - 11 .00 k/uL [facility] CBC panel Auto (Bld)on 12-15 Erythrocyte distribution width (RBC) [Ratio] 15.7 % High 11.5 - 15.0 % [facility] Hematocrit (Bld) [Volume fraction] 31.0 % Low 36.0 - 46.0 % [facility] Hemoglobin (Bld) [Mass/Vol] 9.3 g/dL Low 11.5 - 15.5 g/dL [facility] MCH (RBC) [Entitic mass] 24.4 pg Low 26.0 - 34.0 pg [facility] MCHC (RBC) [Mass/Vol] 30.0 g/dL Low 30.5 - 36.0 g/dL [facility] MCV (RBC) [Entitic vol] 81.4 fL 80.0 - 100.0 fL [facility] Nucleated RBC (Bld) [#/Vol] 10*3/uL <0.01 k/uL [facility] Platelet mean volume (Bld) [Entitic vol] 10.0 fL 9.0 - 12.7 fL [facility] Platelets (Bld) [#/Vol] 273 10*3/uL 150 - 400 k/uL [facility] RBC (Bld) [#/Vol] 3.81 10*6/uL Low 3.90 - 5.2 0 m/uL [facility] WBC (Bld) [#/Vol] 9.78 10*3/uL 3.70 - 11. 00 k/uL [facility] HbA1c (Bld)on 12-15-2021 Average glucose Estimated from glycated hemoglobin (Bld) [Mass/Vol] 157 mg/dL [facility] HbA1c (d) [Mass fraction] 7.1 % High 4.3 - 5.6 % [facility] Lipid 1996 panelon 2 Cholesterol [Mass/Vol] 121 mg/dL <200 mg/dL [facility] Cholesterol in HDL [Mass/Vol] 43 mg/dL >39 mg/dL [facility] Cholesterol in LDL [Mass/Vol] 59 mg/dL <100 mg/dL [facility] Cholesterol in LDL/Cholesterol in HDL [Mass ratio] 1.37 {ratio} <2.54 [facility] Cholesterol in VLDL [Mass/Vol] 19 mg/dL <30 mg/dL [facility] Cholesterol non HDL [Mass/Vol] 78 mg/dL <130 mg/dL [facility] Cholesterol.total/Gin sterol in HDL [Mass ratio] 2.81 {ratio} <5.10 [facility] Fasting Time 12 hrs [facility] Triglyceride [Mass/Vol] 93 mg/dL <150 mg/dL [facility] XR HIP GENERAL 3V PELV/AP/LA T LEFTon 12-15-2021 [facility] XR Pelvis and Hip - left AP and Lateral frogon 12-15-2021 IMPRESSION: NEGATIVE HIP. Maintenance Mechanic: [email or web address] Transcribe Date/Time: Dec 15 2021 12:36P [...] relevant examinations available for comparison within the [facility] Imaging Archives. RESULT: Supine radiograph of [...] relevant examinations available for comparison within the [facility]. RESULT: Supine radiograph of the pelvis as well as AP and frogleg views of the left hip demonstrate the bony pelvic ring intact. The hips are bilaterally symmetric without fracture or dislocation. No acute bony process is noted. The soft tissues demonstrate aortoiliac calcification IMPRESSION IMPRESSION: NEGATIVE HIP. Maintenance Mechanic: PSCB Transcribe Date/Time: Dec 15 2021 12:36P Dictated by : JUAN MOSCOSO MD This examination was interpreted and the report reviewed and electronically signed by: JUAN MOSCOSO MD on Dec 15 2021 12:38PM EST [facility] Radiology Study observation (narrative) Chris molina [facility] XR Pelvis and Hip - left AP and Lateral frogOrdered By: Ccf Provider on 12-15-2021 [facility] No Panel Informationon 12-13 BLANK _ [facility] Implant Date 10/21/2020 [facility] PACEMAKER REMOTE CHECKon AV Delay Adaptive Paced Minimum (ms) 180 ms [facility] AV Delay Adaptive Sensed Minimum (ms) 150 ms [facility] AV Delay Adaptive Status DISABLED [facility] Battery Voltage (volts) 3.04 V C [facility] Pavan RA Pacing Amplitude (volts) 1.5 V [facility] Pavan RA Pacing Polarity BI [facility] Pavan RA Pacing Pulse Width (ms) 0.4 ms [facility] Pavan RA Sensing Amplitude (mvolts) 0.3 mV [facility] Pavan RA Sensing Blanking Period (ms) 150 ms [facility] Pavan RA Sensing Polarity BI [facility] Pavan RA Sensing Refractory Period (ms) Auto [facility] Pavan RV Pacing Amplitude (volts) 2 V [facility] Pavan RV Pacing Polarity BI [facility] Pavan RV Pacing Pulse Width (ms) 0.4 ms [facility] Pavan RV Sensing Amplitude (mvolts) 0.9 mV [facility] Pavan RV Sensing Blanking Period (ms) 200 ms [facility] Pavan RV Sensing Polarity BI [facility] Hysteresis Rate (bpm) DISABLED [facility] Lead1 Mfg MDT [facility] Lead2 Mfg MDT [facility] Location RV [facility] Location RA [facility] Lower Rate (bpm) 60 {beats}/min [facility] Max Sensor Rate (bmp) 120 {beats}/min [facility] Model [id number] Lamoni XT DR MRI [facility] Model 3830 SelectSecure MR I SureScan [facility] Model 5076 CapSureFix [facility] PM-Device Mfg MDT [facility] PM-Percent Pacing (A) 0.2 % [facility] PM-Percent Pacing (V) 19.48 % [facility] PM-PMT Intervention ENABLED [facility] PM-PVC Intervention ENABLED [facility] PM-Rate Modulation Acceleration Reaction 30 s [facility] PM-Rate Modulation ADL Rate (bpm) 95 {beats}/min [facility] PM-Rate Modulation Deceleration Exercise [facility] PM-Rate Modulation [place] 3 [facility] PM-Rate Modulation Threshold Low [facility] RA Bipolar Impedance ohms 475 ohm [facility] RA Unipolar Impedance ohms 285 ohm [facility] RV Bipolar Impedance ohms 418 ohm [facility] RV Unipolar Impedance [address] [facility] Serial Number [id number] [facility] Serial Number [id number] [facility] Serial Number [id number] [facility] Thresh RA Capture Amplitude (volts) 0.75 V [facility] Thresh RA Capture Duration (ms) 0.4 ms [facility] Thresh RA Sensing Amplitude (mvolts) 0.5 mV [facility] Thresh RV Capture Amplitude (volts) 0.875 V [facility] Thresh RV Capture Duration (ms) 0.4 ms [facility] Thresh RV Sensing Amplitude (mvolts) 12.625 mV [facility] Tracking Rate (bpm) 120 {beats}/min [facility] No Panel Informationon 09-26 BLANK _ [facility] Implant Date 10/21/2020 [facility] PACEMAKER REMOTE CHECKon AV Delay Adaptive Paced Minimum (ms) 180 ms [facility] AV Delay Adaptive Sensed Minimum (ms) 150 ms [facility] AV Delay Adaptive Status DISABLED [facility] Battery Voltage (volts) 3.06 V [facility] Pavan RA Pacing Amplitude (volts) 1.5 V [facility] Pavan RA Pacing Polarity BI [facility] Pavan RA Pacing Pulse Width (ms) 0.4 ms [facility] Pavan RA Sensing Amplitude (mvolts) 0.3 mV [facility] Pavan RA Sensing Blanking Period (ms) 150 ms [facility] Pavan RA Sensing Polarity BI [facility] Pavan RA Sensing Refractory Period (ms) Auto [facility] Pavan RV Pacing Amplitude (volts) 2 V [facility] Pavan RV Pacing Polarity BI [facility] Pavan RV Pacing Pulse Width (ms) 0.4 ms [facility] Pavan RV Sensing Amplitude (mvolts) 0.9 mV [facility] Pavan RV Sensing Blanking Period (ms) 200 ms [facility] Pavan RV Sensing Polarity BI [facility] Hysteresis Rate (bpm) DISABLED [facility] Lead1 Mfg MDT [facility] Lead2 Mfg MDT [facility] Location RV [facility] Location RA [facility] Lower Rate (bpm) 60 {beats}/min [facility] Max Sensor Rate (bmp) 120 {beats}/min [facility] Model [id number] Sania XT DR MRI Cl [facility] Model 3830 SelectSecure MR I SureScan [facility] Model 5076 CapSureFix [facility] PM-Device Mfg MDT [facility] PM-Percent Pacing (A) 0.09 % [facility] PM-Percent Pacing (V) 23.44 % [facility] PM-PMT Intervention ENABLED [facility] PM-PVC Intervention ENABLED [facility] PM-Rate Modulation Acceleration Reaction 30 s [facility] PM-Rate Modulation ADL Rate (bpm) 95 {beats}/min [facility] PM-Rate Modulation Deceleration Exercise [facility] PM-Rate Modulation [place] 3 [facility] PM-Rate Modulation Threshold Low [facility] RA Bipolar Impedance ohms 532 ohm [facility] RA Unipolar Impedance ohms 304 ohm [facility] RV Bipolar Impedance ohms 418 ohm [facility] RV Unipolar Impedance [address] [facility] Serial Number [id number] [facility] Serial Number [id number] [facility] Serial Number [id number] [facility] Thresh RA Capture Amplitude (volts) 0.75 V [facility] Thresh RA Capture Duration (ms) 0.4 ms [facility] Thresh RA Sensing Amplitude (mvolts) 0.625 mV [facility] Thresh RV Capture Amplitude (volts) 0.875 V [facility] Thresh RV Capture Duration (ms) 0.4 ms [facility] Thresh RV Sensing Amplitude (mvolts) 12 mV [facility] Tracking Rate (bpm) 120 {beats}/min [facility] PROGRESSon 03-08-2019 PROGRESS HNO ID: [id number] Author: Sheree Logan (Rt) Manolo Elaine Service: Radiology Author Type: Nipping Machine Operator Type: Progress Notes Filed: 03/08/2019 2:55 PM [...] mm nodule right lung base. 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 However, the mobile MRI scanner was not capable of performing the needed MR angiographic sequences. All charges related to the examination was canceled. IMPRESSION: Nondiagnostic MRA study as noted with all charges canceled. The study is to be rescheduled at [facility] main campus. Normal [facility] Vital Signs Date Time Vital Sign Value Performing Clinician Jabari rogers 05-10-2025 11:34-0500 Body temperature 97.4 [degF] Deysi Collazo TENNIS INSTRUCTOR-C Work Phone: [facility] 05-10-2025 11:34-0500 Diastolic blood pressure 97 mm[Hg] Deysi Collazo NP-C Work Phone: [facility] 05-10-2025 11:34-0500 Heart rate 84 /min Deysi Collazo NP-C Work Phone: [facility] 05-10-2025 11:34-0500 Respiratory rate 18 /min Deysi Haagen TENNIS INSTRUCTOR-C Work Phone: 6(642)575-931238 [place] [address] 05-10-2025 11:34-0500 Systolic blood pressure 149 mm[Hg] Deysi Haagen TENNIS INSTRUCTOR-C Work Phone: 4(411)599-166238 [place] [address] 05-07-2025 07:36-0500 Body mass index (BMI) [Ratio] 24 kg/m2 Deysi Haagen TENNIS INSTRUCTOR-C Work Phone: 3(013)778-702038 [place] [address] 05-07-2025 07:36-0500 Body weight 61.68 kg Deysi Haagen TENNIS INSTRUCTOR-C Work Phone: 8(540)410-693338 [place] [address] 05-07-2025 07:36-0500 Diastolic blood pressure 78 mm[Hg] Deysi Haagen TENNIS INSTRUCTOR-C Work Phone: 9(370)389-138038 [place] [address] 05-07-2025 07:36-0500 Heart rate 86 /min Deysi Haagen TENNIS INSTRUCTOR-C Work Phone: 7(540)962-633038 [place] [address] 05-07-2025 07:36-0500 Respiratory rate 18 /min Deysi Haagen TENNIS INSTRUCTOR-C Work Phone: 1(905)246-147038 [place] [address] 05-07-2025 07:36-0500 SaO2% (BldA) [Mass fraction] 98 % Deysi Haagen TENNIS INSTRUCTOR-C Work Phone: 9(583)614-265438 [place] [address] 05-07-2025 07:36-0500 Systolic blood pressure 137 mm[Hg] Deysi Haagen TENNIS INSTRUCTOR-C Work Phone: 0(563)685-798838 [place] [address] 05-03-2025 11:15-0400 Body temperature 98.1 [degF] Deysi Haagen TENNIS INSTRUCTOR-C Work Phone: 2(201)211-902138 [place] [address] 05-03-2025 11:15-0400 Diastolic blood pressure 81 mm[Hg] Deysi Haagen TENNIS INSTRUCTOR-C Work Phone: 9(917)790-304438 [place] [address] 05-03-2025 11:15-0400 Heart rate 98 /min Deysi Haagen TENNIS INSTRUCTOR-C Work Phone: 0(637)312-495738 [place] [address] 05-03-2025 11:15-0400 Respiratory rate 17 /min Deysi Haagen TENNIS INSTRUCTOR-C Work Phone: 7(888)146-390638 [place] [address] 05-03-2025 11:15-0400 Systolic blood pressure 148 mm[Hg] Deysi Haagen TENNIS INSTRUCTOR-C Work Phone: 5(243)103-289638 [place] [address] 04-24-2025 15:30-0400 Body height 160.02 cm Deysi Haagen TENNIS INSTRUCTOR-C Work Phone: 6(041)573-340138 [place] [address] 04-24-2025 15:30-0400 Body mass index (BMI) [Ratio] 24.3 kg/m2 Deysi Haagen TENNIS INSTRUCTOR-C Work Phone: 0(193)583-998338 [place] [address] 04-24-2025 15:30-0400 Body temperature 97.5 [degF] Deysi Haagen TENNIS INSTRUCTOR-C Work Phone: 0(584)810-363538 [place] [address] 04-24-2025 15:30-0400 Body weight 62.36 kg Deysi Haagen TENNIS INSTRUCTOR-C Work Phone: 4(245)969-820238 [place] [address] 04-24-2025 15:30-0400 Diastolic blood pressure 73 mm[Hg] Deysi Haagen TENNIS INSTRUCTOR-C Work Phone: 1(452)571-896138 [place] [address] 04-24-2025 15:30-0400 Heart rate 83 /min Deysi Haagen TENNIS INSTRUCTOR-C Work Phone: 4(966)925-531638 [place] [address] 04-24-2025 15:30-0400 Respiratory rate 16 /min Deysi Haagen TENNIS INSTRUCTOR-C Work Phone: 4(908)671-466738 [place] [address] 04-24-2025 15:30-0400 SaO2% (BldA) [Mass fraction] 95 % Deysi Haagen TENNIS INSTRUCTOR-C Work Phone: 1(887)119-611938 [place] [address] 04-24-2025 15:30-0400 Systolic blood pressure 152 mm[Hg] Deysi Haagen TENNIS INSTRUCTOR-C Work Phone: 6(569)253-381638 [place] [address] 03-29-2025 11:05-0400 Body temperature 98.2 [degF] Deysi Haagen TENNIS INSTRUCTOR-C Work Phone: 4(018)559-488738 [place] [address] 03-29-2025 11:05-0400 Diastolic blood pressure 67 mm[Hg] Deysi Haagen TENNIS INSTRUCTOR-C Work Phone: 2(236)777-359638 [place] [address] 03-29-2025 11:05-0400 Heart rate 89 /min Deysi Haagen TENNIS INSTRUCTOR-C Work Phone: 9(247)115-487938 [place] [address] 03-29-2025 11:05-0400 Respiratory rate 16 /min Deysi Haagen TENNIS INSTRUCTOR-C Work Phone: 2(574)134-965238 [place] [address] 03-29-2025 11:05-0400 SaO2% (BldA) [Mass fraction] 100 % Deysi Haagen TENNIS INSTRUCTOR-C Work Phone: 3(013)555-475438 [place] [address] 03-29-2025 11:05-0400 Systolic blood pressure 145 mm[Hg] Deysi Haagen TENNIS INSTRUCTOR-C Work Phone: 3(545)953-921138 [place] [address] 03-27-2025 16:35-0400 Body temperature 96.9 [degF] Deysi Haagen TENNIS INSTRUCTOR-C Work Phone: 8(557)040-889838 [place] [address] 03-27-2025 16:35-0400 Diastolic blood pressure 48 mm[Hg] Deysi Haagen TENNIS INSTRUCTOR-C Work Phone: 0(277)521-067038 [place] [address] 03-27-2025 16:35-0400 Heart rate 74 /min Deysi Haagen TENNIS INSTRUCTOR-C Work Phone: 9(077)550-293338 [place] [address] 03-27-2025 16:35-0400 Respiratory rate 16 /min Deysi Haagen TENNIS INSTRUCTOR-C Work Phone: 9(183)946-023738 [place] [address] 03-27-2025 16:35-0400 SaO2% (BldA) [Mass fraction] 100 % Deysi Haagen TENNIS INSTRUCTOR-C Work Phone: 3(544)918-642838 [place] [address] 03-27-2025 16:35-0400 Systolic blood pressure 144 mm[Hg] Deysi Haagen TENNIS INSTRUCTOR-C Work Phone: 5(309)134-429738 [place] [address] 03-27-2025 14:21-0400 Body height 160.02 cm Deysi Haagen TENNIS INSTRUCTOR-C Work Phone: 9(870)908-851138 [place] [address] 03-27-2025 14:21-0400 Body mass index (BMI) [Ratio] 23.3 kg/m2 Deysi Haagen TENNIS INSTRUCTOR-C Work Phone: 6(757)607-165738 [place] [address] 03-27-2025 14:21-0400 Body weight 59.87 kg Deysi Haagen TENNIS INSTRUCTOR-C Work Phone: 5(917)890-958838 [place] [address] 03-22-2025 03:56-0400 Body temperature 98 [degF] Deysi Haagen TENNIS INSTRUCTOR-C Work Phone: 4(199)911-308538 [place] [address] 03-22-2025 03:56-0400 Diastolic blood pressure 65 mm[Hg] Deysi Haagen TENNIS INSTRUCTOR-C Work Phone: 6(110)645-914338 [place] [address] 03-22-2025 03:56-0400 Heart rate 81 /min Deysi Haagen TENNIS INSTRUCTOR-C Work Phone: 0(661)457-885838 [place] [address] 03-22-2025 03:56-0400 Respiratory rate 18 /min Deysi Haagen TENNIS INSTRUCTOR-C Work Phone: 1(222)716-313638 [place] [address] 03-22-2025 03:56-0400 SaO2% (BldA) [Mass fraction] 99 % Deysi Haagen TENNIS INSTRUCTOR-C Work Phone: 0(714)354-553938 [place] [address] 03-22-2025 03:56-0400 Systolic blood pressure 161 mm[Hg] Deysi Haagen TENNIS INSTRUCTOR-C Work Phone: 3(641)465-808338 [place] [address] 03-22-2025 03:36-0400 Body height 160.02 cm Deysi Haagen TENNIS INSTRUCTOR-C Work Phone: 5(851)260-539938 [place] [address] 03-22-2025 03:36-0400 Body mass index (BMI) [Ratio] 24.9 kg/m2 Deysi Haagen TENNIS INSTRUCTOR-C Work Phone: 9(154)299-308138 [place] [address] 03-22-2025 03:36-0400 Body weight 63.8 kg Deysi Haagen TENNIS INSTRUCTOR-C Work Phone: 8(853)156-533338 [place] [address] 03-20-2025 12:20-0400 Body temperature 97.2 [degF] Deysi Haagen TENNIS INSTRUCTOR-C Work Phone: 6(426)827-407838 [place] [address] 03-20-2025 12:20-0400 Diastolic blood pressure 56 mm[Hg] Deyis Haagen TENNIS INSTRUCTOR-C Work Phone: 1(487)286-156738 [place] [address] 03-20-2025 12:20-0400 Heart rate 82 /min Deysi Haagen TENNIS INSTRUCTOR-C Work Phone: 5(770)125-596638 [place] [address] 03-20-2025 12:20-0400 Respiratory rate 16 /min Deysi Haagen TENNIS INSTRUCTOR-C Work Phone: 8(798)097-667238 [place] [address] 03-20-2025 12:20-0400 SaO2% (BldA) [Mass fraction] 100 % Deysi Haagen TENNIS INSTRUCTOR-C Work Phone: 3(390)106-577038 [place] [address] 03-20-2025 12:20-0400 Systolic blood pressure 125 mm[Hg] Deysi Haagen TENNIS INSTRUCTOR-C Work Phone: 8(344)067-285838 [place] [address] 03-20-2025 09:24-0400 Body mass index (BMI) [Ratio] 22.8 kg/m2 Desyi Haagen TENNIS INSTRUCTOR-C Work Phone: 0(662)276-134538 [place] [address] 03-20-2025 09:24-0400 Body weight 58.51 kg Deysi Haagen TENNIS INSTRUCTOR-C Work Phone: 0(930)421-796938 [place] [address] 03-15-2025 11:36-0400 Body temperature 96.4 [degF] Deysi Haagen TENNIS INSTRUCTOR-C Work Phone: 2(187)489-968138 [place] [address] 03-15-2025 11:36-0400 Diastolic blood pressure 57 mm[Hg] Deysi Haagen TENNIS INSTRUCTOR-C Work Phone: 5(341)935-232438 [place] [address] 03-15-2025 11:36-0400 Heart rate 87 /min Deysi Haagen TENNIS INSTRUCTOR-C Work Phone: 4(455)592-576438 [place] [address] 03-15-2025 11:36-0400 Respiratory rate 14 /min Deysi Haagen TENNIS INSTRUCTOR-C Work Phone: 5(654)375-944838 [place] [address] 03-15-2025 11:36-0400 Systolic blood pressure 133 mm[Hg] Deysi Haagen TENNIS INSTRUCTOR-C Work Phone: 3(920)878-091742 [place] [address] 03-13-2025 14:06-0400 Body height 160.02 cm Deysi Haagen [employer]ENNIS INSTRUCTOR-C Work Phone: 4(629)010-774138 [place] [address] 03-13-2025 14:06-0400 Body mass index (BMI) [Ratio] 23.6 kg/m2 Deysi Haagen TENNIS INSTRUCTOR-C Work Phone: 4(098)049-044838 [place] [address] 03-13-2025 14:06-0400 Body temperature 96.6 [degF] Deysi Haagen TENNIS INSTRUCTOR-C Work Phone: 2(837)126-204238 [place] [address] 03-13-2025 14:06-0400 Body weight 60.55 kg Deysi Haagen TENNIS INSTRUCTOR-C Work Phone: 9(418)093-711238 [place] [address] 03-13-2025 14:06-0400 Diastolic blood pressure 71 mm[Hg] Deysi Haagen TENNIS INSTRUCTOR-C Work Phone: 0(164)041-701638 [place] [address] 03-13-2025 14:06-0400 Heart rate 91 /min Deysi Haagen TENNIS INSTRUCTOR-C Work Phone: 3(775)123-659138 [place] [address] 03-13-2025 14:06-0400 Respiratory rate 16 /min Deysi Haagen TENNIS INSTRUCTOR-C Work Phone: 6(842)433-144738 [place] [address] 03-13-2025 14:06-0400 SaO2% (BldA) [Mass fraction] 93 % Deysi Haagen TENNIS INSTRUCTOR-C Work Phone: 2(359)436-508438 [place] [address] 03-13-2025 14:06-0400 Systolic blood pressure 152 mm[Hg] Deysi Haagen TENNIS INSTRUCTOR-C Work Phone: 6(107)267-146638 [place] [address] 03-08-2025 09:53-0400 Body temperature 96.8 [degF] Deysi Haagen TENNIS INSTRUCTOR-C Work Phone: 8(601)735-424638 [place] [address] 03-08-2025 09:53-0400 Diastolic blood pressure 40 mm[Hg] Deysi Haagen TENNIS INSTRUCTOR-C Work Phone: 6(255)988-416338 [place] [address] 03-08-2025 09:53-0400 Heart rate 75 /min Deysi Haagen TENNIS INSTRUCTOR-C Work Phone: [facility] 03-08-2025 09:53-0400 Respiratory rate 18 /min Deysi Haagen TENNIS INSTRUCTOR-C Work Phone: [facility] 03-08-2025 09:53-0400 Systolic blood pressure 145 mm[Hg] Deysi Haagen TENNIS INSTRUCTOR-C Work Phone: [facility] 03-01-2025 09:12-0400 Body temperature 97.1 [degF] Deysi Haagen TENNIS INSTRUCTOR-C Work Phone: 6(752)583-300338 [place] [address] 03-01-2025 09:12-0400 Diastolic blood pressure 65 mm[Hg] Deysi Haagen TENNIS INSTRUCTOR-C Work Phone: 1(009)438-736038 [place] [address] 03-01-2025 09:12-0400 Heart rate 79 /min Deysi Haagen TENNIS INSTRUCTOR-C Work Phone: 0(724)923-887738 [place] [address] 03-01-2025 09:12-0400 Respiratory rate 18 /min Deysi Haagen TENNIS INSTRUCTOR-C Work Phone: 2(910)428-561038 [place] [address] 03-01-2025 09:12-0400 Systolic blood pressure 125 mm[Hg] Deysi Haagen TENNIS INSTRUCTOR-C Work Phone: 8(832)194-319738 [place] [address] 02-16-2025 17:24-0400 Body temperature 98 [degF] Deysi Haagen TENNIS INSTRUCTOR-C Work Phone: 4(905)004-772542 [place] [address] 02-16-2025 17:24-0400 Diastolic blood pressure 72 mm[Hg] Deysi Haagen TENNIS INSTRUCTOR-C Work Phone: 6(741)465-513442 [place] [address] 02-16-2025 17:24-0400 Heart rate 75 /min Deysi Haagen TENNIS INSTRUCTOR-C Work Phone: 6(774)857-381242 [place] [address] 02-16-2025 17:24-0400 Respiratory rate 19 /min Deysi Haagen TENNIS INSTRUCTOR-C Work Phone: 7(568)014-985442 [place] [address] 02-16-2025 17:24-0400 SaO2% (BldA) [Mass fraction] 100 % Deysi Haagen TENNIS INSTRUCTOR-C Work Phone: 6(159)349-978938 [place] [address] 02-16-2025 17:24-0400 Systolic blood pressure 154 mm[Hg] Deysi Haagen TENNIS INSTRUCTOR-C Work Phone: 1(791)665-701938 [place] [address] 02-16-2025 12:09-0400 Body mass index (BMI) [Ratio] 25.8 kg/m2 Deysi Haagen [employer]ENNIS INSTRUCTOR-C Work Phone: 4(759)825-257738 [place] [address] 02-16-2025 12:09-0400 Body weight 66.22 kg Deysi Haagen [employer]ENNIS INSTRUCTOR-C Work Phone: 4(686)041-712638 [place] [address] 02-16-2025 11:26-0400 Body height 160.02 cm Deysi Haagen TENNIS INSTRUCTOR-C Work Phone: 6(233)871-598138 [place] [address] 02-16-2025 11:26-0400 Inhaled oxygen flow rate 2 L/min Deysi Haagen [employer]ENNIS INSTRUCTOR-C Work Phone: 3(549)660-588638 [place] [address] 02-05-2025 08:57-0400 Body height 160.02 cm Deysi Haagen TENNIS INSTRUCTOR-C Work Phone: 9(125)471-771438 [place] [address] 02-05-2025 08:57-0400 Body mass index (BMI) [Ratio] 24.7 kg/m2 Deysi Haagen [employer]ENNIS INSTRUCTOR-C Work Phone: 9(833)859-055438 [place] [address] 02-05-2025 08:57-0400 Body weight 63.5 kg Deysi Haagen [employer]ENNIS INSTRUCTOR-C Work Phone: 4(387)309-856838 [place] [address] 02-05-2025 08:57-0400 Diastolic blood pressure 64 mm[Hg] Deysi Haagen TENNIS INSTRUCTOR-C Work Phone: 3(781)248-845238 [place] [address] 02-05-2025 08:57-0400 Heart rate 77 /min Deysi Haagen [employer]IS INSTRUCTOR-C Work Phone: 9(015)689-788038 [place] [address] 02-05-2025 08:57-0400 Respiratory rate 16 /min Deysi Haagen TENNIS INSTRUCTOR-C Work Phone: 6(353)743-949538 [place] [address] 02-05-2025 08:57-0400 Systolic blood pressure 143 mm[Hg] Deysi Haagen TENNIS INSTRUCTOR-C Work Phone: 9(562)832-896938 [place] [address] 01-11-2025 10:44-0400 Heart rate 71 /min Deysi Haagen TENNIS INSTRUCTOR-C Work Phone: 6(852)612-211738 [place] [address] 01-11-2025 08:59-0400 Body temperature 98.1 [degF] Deysi Haagen TENNIS INSTRUCTOR-C Work Phone: 3(633)068-571038 [place] [address] 01-11-2025 08:59-0400 Diastolic blood pressure 55 mm[Hg] Deysi Haagen TENNIS INSTRUCTOR-C Work Phone: 2(108)159-096038 [place] [address] 01-11-2025 08:59-0400 Respiratory rate 18 /min Deysi Haagen TENNIS INSTRUCTOR-C Work Phone: 6(252)146-604438 [place] [address] 01-11-2025 08:59-0400 SaO2% (BldA) [Mass fraction] 100 % Deysi Haagen TENNIS INSTRUCTOR-C Work Phone: 7(124)529-436438 [place] [address] 01-11-2025 08:59-0400 Systolic blood pressure 153 mm[Hg] Deysi Haagen TENNIS INSTRUCTOR-C Work Phone: 0(113)346-210338 [place] [address] 01-11-2025 05:50-0400 Body mass index (BMI) [Ratio] 28 kg/m2 Deysi Haagen TENNIS INSTRUCTOR-C Work Phone: 2(173)194-260538 [place] [address] 01-11-2025 05:50-0400 Body weight 71.8 kg Deysi Haagen TENNIS INSTRUCTOR-C Work Phone: 3(663)118-847538 [place] [address] 01-08-2025 10:03-0400 Body height 160.02 cm Deysi Haagen TENNIS INSTRUCTOR-C Work Phone: 9(594)708-207138 [place] [address] 01-07-2025 17:11-0400 Diastolic blood pressure 66 mm[Hg] Deysi Haagen TENNIS INSTRUCTOR-C Work Phone: 5(268)634-461638 [place] [address] 01-07-2025 17:11-0400 Heart rate 75 /min Deysi Haagen TENNIS INSTRUCTOR-C Work Phone: 4(638)073-416438 [place] [address] 01-07-2025 17:11-0400 Respiratory rate 16 /min Deysi Haagen TENNIS INSTRUCTOR-C Work Phone: [facility] 01-07-2025 17:11-0400 SaO2% (BldA) [Mass fraction] 100 % Deysi Collazo [employer]ENNIS INSTRUCTOR-C Work Phone: [facility] 01-07-2025 17:11-0400 Systolic blood pressure 154 mm[Hg] Deysi Hadon [employer]ENNIS INSTRUCTOR-C Work Phone: [facility] 01-07-2025 16:28-0400 Body temperature 97.7 [degF] Deysigladys Collazo [employer]ENNIS INSTRUCTOR-C Work Phone: [facility] 01-07-2025 13:27-0400 Body mass index (BMI) [Ratio] 27.5 kg/m2 Deysi Hadon [employer]ENNIS INSTRUCTOR-C Work Phone: [facility] 01-07-2025 13:27-0400 Body weight 70.48 kg Deysi Anatoliydon [employer]ENNIS INSTRUCTOR-C Work Phone: [facility] 01-07-2025 12:47-0400 Body height 160.02 cm Deysi Copedon [employer]IS INSTRUCTOR-C Work Phone: [facility] 01-01-2025 10:29-0400 Body height 157.5 cm Carla Burdick MD Work Phone: [facility] 01-01-2025 10:29-0400 Body mass index (BMI) [Ratio] 27.18 kg/m2 Carla Burdick MD Work Phone: [facility] 01-01-2025 10:29-0400 Body weight 67.41 kg Carla Burdick MD Work Phone: [facility] 01-01-2025 10:29-0400 Diastolic blood pressure 60 mm[Hg] Carla Burdick MD Work Phone: [facility] 01-01-2025 10:29-0400 Heart rate 84 /min Carla Burdick MD Work Phone: [facility] 01-01-2025 10:29-0400 Respiratory rate 18 /min Carla Burdick MD Work Phone: [facility] 01-01-2025 10:29-0400 SaO2% (BldA) [Mass fraction] 100 % Carla Burdick MD Work Phone: [facility] 01-01-2025 10:29-0400 Systolic blood pressure 156 mm[Hg] Carla Burdick MD Work Phone: [facility] 12-20-2024 08:29-0400 Body mass index (BMI) [Ratio] 27.18 kg/m2 Lars Silva DO Work Phone: [facility] 12-20-2024 08:29-0400 Body weight 67.4 kg Lars Silva DO Work Phone: [facility] 12-20-2024 08:29-0400 Diastolic blood pressure 75 mm[Hg] Lars Silva DO Work Phone: [facility] 12-20-2024 08:29-0400 Heart rate 77 /min Lars Silva DO Work Phone: [facility] 12-20-2024 08:29-0400 SaO2% (BldA) [Mass fraction] 100 % Lars Silva DO Work Phone: [facility] 12-20-2024 08:29-0400 Systolic blood pressure 154 mm[Hg] Lars Jonesle DO Work Phone: [facility] 12-19-2024 11:38-0400 Diastolic blood pressure 54 mm[Hg] Albin Aurin TEXT TRANSCRIBER.SOCIAL SCIENCE INSTRUCTOR Work Phone: [facility] Comment on above: post IV lasix 12-19-2024 11:38-0400 Systolic blood pressure 157 mm[Hg] Albin Aurin TEXT TRANSCRIBER.SOCIAL SCIENCE INSTRUCTOR Work Phone: [facility] Comment on above: post IV lasix 12-19-2024 10:56-0400 Body mass index (BMI) [Ratio] 26.34 kg/m2 Albni Aurin TEXT TRANSCRIBER.SOCIAL SCIENCE INSTRUCTOR Work Phone: [facility] 12-19-2024 10:56-0400 Body weight 65.32 kg Albin Gu TEXT TRANSCRIBER.SOCIAL SCIENCE INSTRUCTOR Work Phone: [facility] 12-19-2024 10:56-0400 Heart rate 79 /min Albin Gu TEXT TRANSCRIBER.SOCIAL SCIENCE INSTRUCTOR Work Phone: [facility] 12-19-2024 10:56-0400 SaO2% (BldA) [Mass fraction] 99 % Albin Gu TEXT TRANSCRIBER.SOCIAL SCIENCE INSTRUCTOR Work Phone: [facility] 11-20-2024 08:06-0400 Body height 157.5 cm Carla Burdick MD Work Phone: [facility] 11-20-2024 08:06-0400 Body mass index (BMI) [Ratio] 26.3 kg/m2 Carla Burdick MD Work Phone: [facility] 11-20-2024 08:06-0400 Body weight 65.23 kg Carla Burdick MD Work Phone: [facility] 11-20-2024 08:06-0400 Diastolic blood pressure 62 mm[Hg] Carla Burdick MD Work Phone: [facility] 11-20-2024 08:06-0400 Heart rate 84 /min Carla Burdick MD Work Phone: [facility] 11-20-2024 08:06-0400 Respiratory rate 12 /min Carla Burdick MD Work Phone: [facility] 11-20-2024 08:06-0400 SaO2% (BldA) [Mass fraction] 99 % Carla Burdick MD Work Phone: [facility] 11-20-2024 08:06-0400 Systolic blood pressure 154 mm[Hg] Carla Burdick MD Work Phone: [facility] 11-06-2024 15:03-0400 Body height 157.5 cm Carla Burdick MD Work Phone: [facility] 11-06-2024 15:03-0400 Body mass index (BMI) [Ratio] 27.8 kg/m2 Carla Burdick MD Work Phone: [facility] 11-06-2024 15:03-0400 Body weight 68.95 kg Carla Burdick MD Work Phone: [facility] 11-06-2024 15:03-0400 Diastolic blood pressure 54 mm[Hg] Carla Burdick MD Work Phone: [facility] 11-06-2024 15:03-0400 Heart rate 68 /min Carla Burdick MD Work Phone: [facility] 11-06-2024 15:03-0400 Respiratory rate 12 /min Carla Burdick MD Work Phone: [facility] 11-06-2024 15:03-0400 SaO2% (BldA) [Mass fraction] 100 % Carla Burdick MD Work Phone: [facility] 11-06-2024 15:03-0400 Systolic blood pressure 134 mm[Hg] Carla Burdick MD Work Phone: [facility] 11-03-2024 10:06-0400 Diastolic blood pressure 44 mm[Hg] Albin Aurin TEXT TRANSCRIBER.SOCIAL SCIENCE INSTRUCTOR Work Phone: [facility] 11-03-2024 10:06-0400 Systolic blood pressure 121 mm[Hg] Albin Aurin TEXT TRANSCRIBER.SOCIAL SCIENCE INSTRUCTOR Work Phone: [facility] 11-03-2024 08:56-0400 Body mass index (BMI) [Ratio] 26.89 kg/m2 Albin Aurin TEXT TRANSCRIBER.SOCIAL SCIENCE INSTRUCTOR Work Phone: [facility] 11-03-2024 08:56-0400 Body weight 66.68 kg Albin Aurin TEXT TRANSCRIBER.SOCIAL SCIENCE INSTRUCTOR Work Phone: [facility] 11-03-2024 08:56-0400 Heart rate 66 /min Albin Aurin TEXT TRANSCRIBER.SOCIAL SCIENCE INSTRUCTOR Work Phone: [facility] 11-03-2024 08:56-0400 SaO2% (BldA) [Mass fraction] 100 % Albin Aurin TEXT TRANSCRIBER.SOCIAL SCIENCE INSTRUCTOR Work Phone: [facility] 10-31-2024 11:09-0400 Body mass index (BMI) [Ratio] 25.97 kg/m2 Shaye Domingo APRN.SOCIAL SCIENCE INSTRUCTOR Work Phone: [facility] 10-31-2024 11:09-0400 Body weight 64.41 kg Shaye Domingo APRN.SOCIAL SCIENCE INSTRUCTOR Work Phone: [facility] 10-31-2024 11:09-0400 Diastolic blood pressure 68 mm[Hg] Shaye Domingo APRN.SOCIAL SCIENCE INSTRUCTOR Work Phone: [facility] 10-31-2024 11:09-0400 Heart rate 84 /min Shaye Domingo APRN.SOCIAL SCIENCE INSTRUCTOR Work Phone: [facility] 10-31-2024 11:09-0400 Systolic blood pressure 147 mm[Hg] Shaye Domingo APRN.SOCIAL SCIENCE INSTRUCTOR Work Phone: [facility] 04-07-2024 09:30-0400 Body mass index (BMI) [Ratio] 25.06 kg/m2 Albin Gu APRN.SOCIAL SCIENCE INSTRUCTOR Work Phone: [facility] 04-07-2024 09:30-0400 Body weight 62.14 kg Albin Gu APRN.SOCIAL SCIENCE INSTRUCTOR Work Phone: [facility] 04-07-2024 09:30-0400 Diastolic blood pressure 47 mm[Hg] Albin Gu APRN.SOCIAL SCIENCE INSTRUCTOR Work Phone: [facility] 04-07-2024 09:30-0400 Heart rate 91 /min Albin Gu APRN.SOCIAL SCIENCE INSTRUCTOR Work Phone: [facility] 04-07-2024 09:30-0400 SaO2% (BldA) [Mass fraction] 98 % Albin Gu TEXT TRANSCRIBER.SOCIAL SCIENCE INSTRUCTOR Work Phone: [facility] 04-07-2024 09:30-0400 Systolic blood pressure 142 mm[Hg] Albin Gu APRN.SOCIAL SCIENCE INSTRUCTOR Work Phone: [facility] 01-17-2024 09:50-0400 Body height 157.5 cm Carla Burdick MD Work Phone: [facility] 01-17-2024 09:50-0400 Body mass index (BMI) [Ratio] 26.92 kg/m2 Carla Burdick MD Work Phone: [facility] 01-17-2024 09:50-0400 Body weight 66.77 kg Carla Burdick MD Work Phone: [facility] 01-17-2024 09:50-0400 Diastolic blood pressure 59 mm[Hg] Carla Burdick MD Work Phone: [facility] 01-17-2024 09:50-0400 Heart rate 64 /min Carla Burdick MD Work Phone: [facility] 01-17-2024 09:50-0400 SaO2% (BldA) [Mass fraction] 99 % Carla Burdick MD Work Phone: [facility] 01-17-2024 09:50-0400 Systolic blood pressure 157 mm[Hg] Carla Burdick MD Work Phone: [facility] 12-07-2023 11:46-0400 Diastolic blood pressure 76 mm[Hg] Deysi Haagen TEXT TRANSCRIBER.SOCIAL SCIENCE INSTRUCTOR Work Phone: [facility] 12-07-2023 11:46-0400 Heart rate 68 /min Deysi Haagen TEXT TRANSCRIBER.SOCIAL SCIENCE INSTRUCTOR Work Phone: [facility] 12-07-2023 11:46-0400 Respiratory rate 16 /min Deysi Haagen TEXT TRANSCRIBER.SOCIAL SCIENCE INSTRUCTOR Work Phone: [facility] 12-07-2023 11:46-0400 SaO2% (BldA) [Mass fraction] 97 % Deysi Haagen TEXT TRANSCRIBER.SOCIAL SCIENCE INSTRUCTOR Work Phone: [facility] 12-07-2023 11:46-0400 Systolic blood pressure 128 mm[Hg] Deysi Haagen TEXT TRANSCRIBER.SOCIAL SCIENCE INSTRUCTOR Work Phone: [facility] 11-25-2023 10:42-0400 Diastolic blood pressure 37 mm[Hg] Albin Gu TEXT TRANSCRIBER.SOCIAL SCIENCE INSTRUCTOR Work Phone: [facility] 11-25-2023 10:42-0400 Systolic blood pressure 160 mm[Hg] Albin Quinteroin TEXT TRANSCRIBER.SOCIAL SCIENCE INSTRUCTOR Work Phone: [facility] 11-25-2023 10:00-0400 Body mass index (BMI) [Ratio] 26.89 kg/m2 Albin Aurin TEXT TRANSCRIBER.SOCIAL SCIENCE INSTRUCTOR Work Phone: [facility] 11-25-2023 10:00-0400 Body weight 66.68 kg Albin Aurin TEXT TRANSCRIBER.SOCIAL SCIENCE INSTRUCTOR Work Phone: [facility] 11-25-2023 10:00-0400 Heart rate 60 /min Albin Quinteroin TEXT TRANSCRIBER.SOCIAL SCIENCE INSTRUCTOR Work Phone: [facility] 11-25-2023 10:00-0400 SaO2% (BldA) [Mass fraction] 98 % Albin Quinteroin TEXT TRANSCRIBER.SOCIAL SCIENCE INSTRUCTOR Work Phone: [facility] 11-22-2023 09:09-0400 Body mass index (BMI) [Ratio] 27.44 kg/m2 Deysi Hadon TEXT TRANSCRIBER.SOCIAL SCIENCE INSTRUCTOR Work Phone: [facility] 11-22-2023 09:09-0400 Body weight 68.04 kg Desyi Collazo TEXT TRANSCRIBER.SOCIAL SCIENCE INSTRUCTOR Work Phone: [facility] 11-22-2023 09:09-0400 Diastolic blood pressure 76 mm[Hg] Deysi Haagen TEXT TRANSCRIBER.SOCIAL SCIENCE INSTRUCTOR Work Phone: [facility] 11-22-2023 09:09-0400 Heart rate 67 /min Deysi Haagen TEXT TRANSCRIBER.SOCIAL SCIENCE INSTRUCTOR Work Phone: [facility] 11-22-2023 09:09-0400 Respiratory rate 16 /min Deysi Haagen TEXT TRANSCRIBER.SOCIAL SCIENCE INSTRUCTOR Work Phone: [facility] 11-22-2023 09:09-0400 SaO2% (BldA) [Mass fraction] 98 % Deysi Haagen TEXT TRANSCRIBER.SOCIAL SCIENCE INSTRUCTOR Work Phone: [facility] 11-22-2023 09:09-0400 Systolic blood pressure 128 mm[Hg] Deysi Haagen TEXT TRANSCRIBER.SOCIAL SCIENCE INSTRUCTOR Work Phone: [facility] 11-08-2023 16:36-0400 Body mass index (BMI) [Ratio] 29.98 kg/m2 Bere Boykin TEXT TRANSCRIBER.SOCIAL SCIENCE INSTRUCTOR Work Phone: [facility] 11-08-2023 16:36-0400 Body weight 73.17 kg Bere Boykin TEXT TRANSCRIBER.C TENNIS INSTRUCTOR Work Phone: [facility] 11-08-2023 16:36-0400 Diastolic blood pressure 70 mm[Hg] Bere Boykin TEXT TRANSCRIBER.SOCIAL SCIENCE INSTRUCTOR Work Phone: [facility] 11-08-2023 16:36-0400 Heart rate 94 /min Bere Boykin TEXT TRANSCRIBER.C TENNIS INSTRUCTOR Work Phone: [facility] 11-08-2023 16:36-0400 SaO2% (BldA) [Mass fraction] 95 % Bere Boykin TEXT TRANSCRIBER.SOCIAL SCIENCE INSTRUCTOR Work Phone: [facility] 11-08-2023 16:36-0400 Systolic blood pressure 156 mm[Hg] Bere Boykin TEXT TRANSCRIBER.SOCIAL SCIENCE INSTRUCTOR Work Phone: [facility] 11-04-2023 08:08-0400 Body mass index (BMI) [Ratio] 29.74 kg/m2 NA Le PA-C Work Phone: [facility] 11-04-2023 08:08-0400 Body weight 72.58 kg NA Le PA-C Work Phone: [facility] 11-04-2023 08:08-0400 Diastolic blood pressure 70 mm[Hg] NA Le PA-C Work Phone: [facility] 11-04-2023 08:08-0400 Heart rate 88 /min NA Le PA-C Work Phone: [facility] 11-04-2023 08:08-0400 Respiratory rate 20 /min NA Le PA-C Work Phone: [facility] 11-04-2023 08:08-0400 SaO2% (BldA) [Mass fraction] 97 % NA Le PA-C Work Phone: [facility] 11-04-2023 08:08-0400 Systolic blood pressure 130 mm[Hg] NA Le PA-C Work Phone: [facility] 10-18-2023 13:11-0400 Diastolic blood pressure 76 mm[Hg] NA Le PA-C Work Phone: [facility] 10-18-2023 13:11-0400 Systolic blood pressure 144 mm[Hg] NA Le PA-C Work Phone: [facility] 10-18-2023 13:04-0400 Body weight 75.48 kg NA Le PA-C Work Phone: [facility] 10-18-2023 13:04-0400 Heart rate 90 /min NA Le PA-C Work Phone: [facility] 10-18-2023 13:04-0400 Respiratory rate 20 /min NA Le PA-C Work Phone: [facility] 10-18-2023 13:04-0400 SaO2% (BldA) [Mass fraction] 99 % NA Le PA-C Work Phone: [facility] 10-14-2023 14:40-0400 Diastolic blood pressure 73 mm[Hg] Lars Silva DO Work Phone: [facility] 10-14-2023 14:40-0400 Heart rate 85 /min Lars Silva DO Work Phone: [facility] 10-14-2023 14:40-0400 SaO2% (BldA) [Mass fraction] 97 % Lars Silva DO Work Phone: [facility] 10-14-2023 14:40-0400 Systolic blood pressure 153 mm[Hg] Lars Silva DO Work Phone: [facility] 07-05-2023 11:19-0500 Body temperature 98.49 [degF] Bijan Cole MD Work Phone: [facility] 07-05-2023 11:19-0500 Body weight 71.31 kg Bijan Cole MD Work Phone: [facility] 07-05-2023 11:19-0500 Diastolic blood pressure 80 mm[Hg] Bijan Cole MD Work Phone: [facility] 07-05-2023 11:19-0500 Heart rate 90 /min Bijan Cole MD Work Phone: [facility] 07-05-2023 11:19-0500 Respiratory rate 20 /min Bijan Cole MD Work Phone: [facility] 07-05-2023 11:19-0500 SaO2% (BldA) [Mass fraction] 98 % Bijan Cole MD Work Phone: [facility] 07-05-2023 11:19-0500 Systolic blood pressure 158 mm[Hg] Bijan Cole MD Work Phone: [facility] 01-07-2023 08:44-0400 Body weight 65.77 kg NA Le PA-C Work Phone: [facility] 01-07-2023 08:44-0400 Diastolic blood pressure 72 mm[Hg] NA Le PA-C Work Phone: [facility] 01-07-2023 08:44-0400 Heart rate 70 /min NA Le PA-C Work Phone: [facility] 01-07-2023 08:44-0400 Respiratory rate 16 /min NA Le PA-C Work Phone: [facility] 01-07-2023 08:44-0400 SaO2% (BldA) [Mass fraction] 96 % NA Le PA-C Work Phone: [facility] 01-07-2023 08:44-0400 Systolic blood pressure 136 mm[Hg] NA Le PA-C Work Phone: [facility] 10-06-2022 09:13-0400 Body weight 66.22 kg NA Le PA-C Work Phone: [facility] 10-06-2022 09:13-0400 Diastolic blood pressure 68 mm[Hg] NA Le PA-C Work Phone: [facility] 10-06-2022 09:13-0400 Heart rate 81 /min NA Le PA-C Work Phone: [facility] 10-06-2022 09:13-0400 Respiratory rate 18 /min NA Le PA-C Work Phone: [facility] 10-06-2022 09:13-0400 SaO2% (BldA) [Mass fraction] 96 % NA Le PA-C Work Phone: [facility] 10-06-2022 09:13-0400 Systolic blood pressure 144 mm[Hg] NA Le PA-C Work Phone: [facility] 09-28-2022 09:15-0400 Body height 156.2 cm Carla Burdick MD Work Phone: [facility] 09-28-2022 09:15-0400 Body weight 68.4 kg Carla Burdick MD Work Phone: [facility] 09-28-2022 09:15-0400 Diastolic blood pressure 74 mm[Hg] Carla Burdick MD Work Phone: [facility] 09-28-2022 09:15-0400 Heart rate 78 /min Carla Burdick MD Work Phone: [facility] 09-28-2022 09:15-0400 Systolic blood pressure 128 mm[Hg] Carla Burdick MD Work Phone: [facility] 07-07-2022 08:56-0500 Body weight 65.32 kg NA Le PA-C Work Phone: [facility] 07-07-2022 08:56-0500 Diastolic blood pressure 62 mm[Hg] NA Le PA-C Work Phone: [facility] 07-07-2022 08:56-0500 Heart rate 74 /min NA Le PA-C Work Phone: [facility] 07-07-2022 08:56-0500 Respiratory rate 16 /min NA Le PA-C Work Phone: [facility] 07-07-2022 08:56-0500 SaO2% (BldA) [Mass fraction] 97 % NA Le PA-C Work Phone: [facility] 07-07-2022 08:56-0500 Systolic blood pressure 148 mm[Hg] NA Le PA-C Work Phone: [facility] 05-14-2022 09:27-0500 Body temperature 98.91 [degF] Sonny Lund MD Work Phone: [facility] 05-14-2022 09:27-0500 Body weight 68.49 kg Sonny Lund MD Work Phone: [facility] 05-14-2022 09:27-0500 Diastolic blood pressure 72 mm[Hg] Sonny Lund MD Work Phone: [facility] 05-14-2022 09:27-0500 Heart rate 84 /min Sonny Lund MD Work Phone: [facility] 05-14-2022 09:27-0500 Respiratory rate 16 /min Sonny Lund MD Work Phone: [facility] 05-14-2022 09:27-0500 SaO2% (BldA) [Mass fraction] 98 % Sonny Lund MD Work Phone: [facility] 05-14-2022 09:27-0500 Systolic blood pressure 147 mm[Hg] Sonny Lund MD Work Phone: [facility] 04-28-2022 09:09-0400 Body temperature 97.3 [degF] Treatment Wstr Work Phone: [facility] 04-28-2022 09:09-0400 Diastolic blood pressure 62 mm[Hg] Treatment Wstr Work Phone: [facility] 04-28-2022 09:09-0400 Heart rate 83 /min Treatment Wstr Work Phone: [facility] 04-28-2022 09:09-0400 Systolic blood pressure 122 mm[Hg] Treatment Wstr Work Phone: [facility] 04-22-2022 10:54-0400 Body temperature 97.11 [degF] Treatment Wstr Work Phone: [facility] 04-22-2022 10:54-0400 Diastolic blood pressure 68 mm[Hg] Treatment Wstr Work Phone: [facility] 04-22-2022 10:54-0400 Heart rate 102 /min Treatment Wstr Work Phone: [facility] 04-22-2022 10:54-0400 Systolic blood pressure 135 mm[Hg] Treatment Wstr Work Phone: [facility] 04-20-2022 09:30-0400 Body temperature 97.9 [degF] Treatment Wstr Work Phone: [facility] 04-20-2022 09:30-0400 Diastolic blood pressure 61 mm[Hg] Treatment Wstr Work Phone: [facility] 04-20-2022 09:30-0400 Heart rate 98 /min Treatment Wstr Work Phone: [facility] 04-20-2022 09:30-0400 Systolic blood pressure 130 mm[Hg] Treatment Wstr Work Phone: [facility] 04-17-2022 15:31-0400 Body temperature 98.1 [degF] Treatment Wstr Work Phone: [facility] 04-17-2022 15:31-0400 Diastolic blood pressure 66 mm[Hg] Treatment Wstr Work Phone: [facility] 04-17-2022 15:31-0400 Heart rate 97 /min Treatment Wstr Work Phone: [facility] 04-17-2022 15:31-0400 SaO2% (BldA) [Mass fraction] 99 % Treatment Wstr Work Phone: [facility] 04-17-2022 15:31-0400 Systolic blood pressure 137 mm[Hg] Treatment Wstr Work Phone: [facility] 04-09-2022 11:33-0400 Body height 161.3 cm Brayan Chicas MD Work Phone: [facility] 04-09-2022 11:33-0400 Body weight 67.59 kg Brayan Chicas MD Work Phone: [facility] 04-06-2022 10:44-0400 Body weight 66.68 kg NA Le PA-C Work Phone: [facility] 04-06-2022 10:44-0400 Diastolic blood pressure 72 mm[Hg] NA Le PA-C Work Phone: [facility] 04-06-2022 10:44-0400 Heart rate 95 /min NA Le PA-C Work Phone: [facility] 04-06-2022 10:44-0400 Respiratory rate 24 /min NA Le PA-C Work Phone: [facility] 04-06-2022 10:44-0400 SaO2% (BldA) [Mass fraction] 99 % NA Le PA-C Work Phone: [facility] 04-06-2022 10:44-0400 Systolic blood pressure 148 mm[Hg] NA Le PA-C Work Phone: [facility] 03-30-2022 08:49-0400 Body weight 65.32 kg Carla Burdick MD Work Phone: [facility] 03-30-2022 08:49-0400 Diastolic blood pressure 64 mm[Hg] Carla Burdick MD Work Phone: [facility] 03-30-2022 08:49-0400 Heart rate 90 /min Carla Burdick MD Work Phone: [facility] 03-30-2022 08:49-0400 SaO2% (BldA) [Mass fraction] 100 % Carla Burdick MD Work Phone: [facility] 03-30-2022 08:49-0400 Systolic blood pressure 144 mm[Hg] Carla Burdick MD Work Phone: [facility] 03-19-2022 11:07-0400 Body weight 69.85 kg NA Le PA-C Work Phone: [facility] 03-19-2022 11:07-0400 Diastolic blood pressure 66 mm[Hg] NA Le PA-C Work Phone: [facility] 03-19-2022 11:07-0400 Heart rate 112 /min NA Le PA-C Work Phone: [facility] 03-19-2022 11:07-0400 Respiratory rate 24 /min NA Le PA-C Work Phone: [facility] 03-19-2022 11:07-0400 SaO2% (BldA) [Mass fraction] 97 % NA Le PA-C Work Phone: [facility] 03-19-2022 11:07-0400 Systolic blood pressure 148 mm[Hg] NA Le PA-C Work Phone: [facility] 03-03-2022 13:45-0400 Body height 160 cm Radha Brian TEXT TRANSCRIBER.SOCIAL SCIENCE INSTRUCTOR Work Phone: [facility] 03-03-2022 13:45-0400 Body weight 63.5 kg Radha Brian TEXT TRANSCRIBER.SOCIAL SCIENCE INSTRUCTOR Work Phone: [facility] 03-03-2022 13:45-0400 Diastolic blood pressure 72 mm[Hg] Radha Brian TEXT TRANSCRIBER.SOCIAL SCIENCE INSTRUCTOR Work Phone: [facility] 03-03-2022 13:45-0400 Heart rate 98 /min Radha Brian TEXT TRANSCRIBER.SOCIAL SCIENCE INSTRUCTOR Work Phone: [facility] 03-03-2022 13:45-0400 Systolic blood pressure 141 mm[Hg] Radha Brian TEXT TRANSCRIBER.SOCIAL SCIENCE INSTRUCTOR Work Phone: [facility] 03-03-2022 13:00-0400 Diastolic blood pressure 62 mm[Hg] [facility] 03-03-2022 13:00-0400 Heart rate 105 /min [facility] 03-03-2022 13:00-0400 SaO2% (BldA) [Mass fraction] 94 % [facility] 03-03-2022 13:00-0400 Systolic blood pressure 129 mm[Hg] [facility] 03-03-2022 12:50-0400 Respiratory rate 12 /min [facility] 03-03-2022 10:56-0400 Body temperature 97.5 [degF] [facility] 02-20-2022 09:31-0400 Body weight 64.86 kg NA Le PA-C Work Phone: [facility] 02-20-2022 09:31-0400 Diastolic blood pressure 78 mm[Hg] NA Le PA-C Work Phone: [facility] 02-20-2022 09:31-0400 Heart rate 116 /min NA Le PA-C Work Phone: [facility] 02-20-2022 09:31-0400 Respiratory rate 16 /min NA Le PA-C Work Phone: [facility] 02-20-2022 09:31-0400 SaO2% (BldA) [Mass fraction] 100 % NA Le PA-C Work Phone: [facility] 02-20-2022 09:31-0400 Systolic blood pressure 132 mm[Hg] NA Le PA-C Work Phone: [facility] 01-16-2022 10:26-0400 Body temperature 98.49 [degF] NA Le PA-C Work Phone: [facility] 01-16-2022 10:26-0400 Body weight 64.41 kg NA Le PA-C Work Phone: [facility] 01-16-2022 10:26-0400 Diastolic blood pressure 72 mm[Hg] NA Le PA-C Work Phone: [facility] 01-16-2022 10:26-0400 Heart rate 92 /min NA Le PA-C Work Phone: [facility] 01-16-2022 10:26-0400 Respiratory rate 16 /min NA Le PA-C Work Phone: [facility] 01-16-2022 10:26-0400 SaO2% (BldA) [Mass fraction] 98 % NA Le PA-C Work Phone: [facility] 01-16-2022 10:26-0400 Systolic blood pressure 138 mm[Hg] NA Le PA-C Work Phone: [facility] 01-09-2022 14:25-0400 Diastolic blood pressure 66 mm[Hg] Emilia Diallo MD Work Phone: [facility] 01-09-2022 14:25-0400 Heart rate 95 /min Emilia Diallo MD Work Phone: [facility] 01-09-2022 14:25-0400 SaO2% (BldA) [Mass fraction] 99 % Emilia Diallo MD Work Phone: [facility] 01-09-2022 14:25-0400 Systolic blood pressure 133 mm[Hg] Emilia Diallo MD Work Phone: [facility] 01-02-2022 11:15-0400 Diastolic blood pressure 60 mm[Hg] Chai Encinas MD Work Phone: [facility] 01-02-2022 11:15-0400 Heart rate 89 /min Chai Encinas MD Work Phone: [facility] 01-02-2022 11:15-0400 SaO2% (BldA) [Mass fraction] 97 % Chai Encinas MD Work Phone: [facility] 01-02-2022 11:15-0400 Systolic blood pressure 134 mm[Hg] Chai Encinas MD Work Phone: [facility] 01-02-2022 11:00-0400 Respiratory rate 20 /min Chai Encinas MD Work Phone: [facility] 01-02-2022 10:42-0400 Body temperature 97.9 [degF] Chai Encinas MD Work Phone: [facility] 01-02-2022 08:59-0400 Body height 160 cm Chai Encinas MD Work Phone: [facility] 01-02-2022 08:59-0400 Body weight 65.77 kg Chai Encinas MD Work Phone: [facility] 01-01-2022 09:45-0400 Body height 160 cm Chai Encinas MD Work Phone: [facility] 01-01-2022 09:45-0400 Body temperature 97 [degF] Chai Encinas MD Work Phone: [facility] 01-01-2022 09:45-0400 Body weight 65.77 kg Chai Encinas MD Work Phone: [facility] 01-01-2022 09:45-0400 Diastolic blood pressure 52 mm[Hg] Chai Encinas MD Work Phone: [facility] 01-01-2022 09:45-0400 Heart rate 100 /min Chai Encinas MD Work Phone: [facility] 01-01-2022 09:45-0400 SaO2% (BldA) [Mass fraction] 98 % Chai Encinas MD Work Phone: [facility] 01-01-2022 09:45-0400 Systolic blood pressure 122 mm[Hg] Chai Encinas MD Work Phone: [facility] 12-30-2021 13:16-0400 Body temperature 96.9 [degF] [facility] Work Phone: 12-30-2021 13:16-0400 Diastolic blood pressure 54 mm[Hg] [facility] Work Phone: 12-30-2021 13:16-0400 Heart rate 73 /min [facility] Work Phone: 12-30-2021 13:16-0400 Respiratory rate 16 /min [facility] Work Phone: 12-30-2021 13:16-0400 SaO2% (BldA) [Mass fraction] 97 % [facility] Work Phone: 12-30-2021 13:16-0400 Systolic blood pressure 113 mm[Hg] [facility] Work Phone: 12-30-2021 08:17-0400 Body height 160.02 cm [facility] Work Phone: 12-15-2021 09:08-0400 Body temperature 98.2 [degF] NA Le PA-C Work Phone: [facility] 12-15-2021 09:08-0400 Body weight 66.04 kg NA Le PA-C Work Phone: [facility] 12-15-2021 09:08-0400 Diastolic blood pressure 64 mm[Hg] NA Le PA-C Work Phone: [facility] 12-15-2021 09:08-0400 Heart rate 97 /min NA Le PA-C Work Phone: [facility] 12-15-2021 09:08-0400 Respiratory rate 18 /min NA Le PA-C Work Phone: [facility] 12-15-2021 09:08-0400 SaO2% (BldA) [Mass fraction] 99 % NA Le PA-C Work Phone: [facility] 12-15-2021 09:08-0400 Systolic blood pressure 118 mm[Hg] NA Le PA-C Work Phone: [facility] 11-26-2021 09:54-0400 Body height 160 cm Na Ramirez APRN.CN P Work Phone: [facility] 11-26-2021 09:54-0400 Body weight 65.77 kg Na Ramirez TEXT TRANSCRIBER.CN P Work Phone: [facility] 01-19-2019 10:25-0400 BMI (Body Mass Index) 28.62 kg/m2 [facility] 01-19-2019 10:25-0400 Body weight 72.12 kg [facility] 01-19-2019 10:25-0400 BP Diastolic 64 mm[Hg] [facility] 01-19-2019 10:25-0400 BP Systolic 134 mm[Hg] [facility] 01-19-2019 10:25-0400 Height 158.8 cm [facility] 01-19-2019 10:25-0400 Pulse (Heart Rate) 100 /min [facility] 01-19-2019 10:25-0400 Pulse Oximetry 99 % [facility] 01-19-2019 10:25-0400 Respiratory Rate 16 /min [facility] Encounters Encounter Date Encounter Type Care Provider Facility Start: 05-10-2025 ambulatory Vincent Chi Mark [facility] Start: 05-07-2025 End: 05-07-2025 ambulatory Vincent Chi Mark Facility:[facility] Start: 05-03-2025 ambulatory Vincent Chi Mark [facility] Start: 05-03-2025 End: 05-04-2025 ambulatory Vincent Chi Mark Facility:[facility] Start: 05-02-2025 End: 05-02-2025 ambulatory Vincent Chi Mark Facility:[facility] Start: 04-24-2025 End: 04-24-2025 Dr. Ric Noriega MD -[facility] Work Phone: Start: 04-24-2025 End: 04-24-2025 ambulatory Deysi Collazo TENNIS INSTRUCTOR-C Work Phone: -[facility] Start: 04-22-2025 End: 04-22-2025 ambulatory Vincent Chi Mark Facility:[facility] Start: 04-22-2025 End: 04-22-2025 Dr. Yaniv Masters MD -[facility] Work Phone: Start: 04-19-2025 Dr. Javi Abrams -[facility] Start: 04-12-2025 ambulatory Vincent Chi Mark [facility] Start: 04-12-2025 Dr. Ebony Cerrato MD -[facility] Work Phone: Start: 04-05-2025 ambulatory Vincent Chi Mark [facility] Start: 04-05-2025 Dr. Ebony Cerrato MD -[facility] Work Phone: Start: 04-05-2025 Dr. Ebony Cerrato [facility] Work Phone: Start: 04-02-2025 End: 04-02-2025 ambulatory Deysi Haagen TENNIS INSTRUCTOR-C Work Phone: -[facility] Start: 04-02-2025 End: 04-02-2025 Dr. Vincent Flores MD -[facility] Start: 04-02-2025 End: 04-02-2025 ambulatory [facility] Facility:[facility] Start: 03-29-2025 End: 04-03-2025 ambulatory Deysi Haagen TENNIS INSTRUCTOR-C Work Phone: [facility] Start: 03-29-2025 End: 04-03-2025 Dr. Ebony Cerrato MD -[facility] Work Phone: Start: 03-27-2025 Dr. Ric rodriguez MD -[facility] Start: 03-22-2025 End: 03-22-2025 Deysi Haagen TENNIS INSTRUCTOR-C Work Phone: -Emergency Department Work Phone: Start: 03-22-2025 End: 03-22-2025 Emergency department patient visit Deysi Haagen TENNIS INSTRUCTOR-C Work Phone: -Emergency Department Start: 03-20-2025 Dr. Ric rodriguez MD -[facility] Start: 03-15-2025 ambulatory Vincent Chi Mark [facility] Start: 03-15-2025 Dr. Ebony Cerrato MD -[facility] Work Phone: Start: 03-13-2025 End: 03-13-2025 Dr. Ric Noriega MD -[facility] Work Phone: Start: 03-13-2025 End: 03-13-2025 ambulatory Deysi Haagen TENNIS INSTRUCTOR-C Work Phone: -[facility] Start: 03-09-2025 ambulatory Vincent Chi Mark Facility:[facility] Start: 03-09-2025 End: 03-09-2025 ambulatory Deysi Haagen TENNIS INSTRUCTOR-C Work Phone: -Laboratory Start: 03-09-2025 End: 03-09-2025 Dr. Vincent Flores MD -Laboratory Work Phone: Start: 03-08-2025 End: 03-09-2025 ambulatory Vincent Chi Mark Facility:[facility] Start: 03-08-2025 Dr. Ebony Cerrato MD -[facility] Work Phone: Start: 03-08-2025 Dr. Ebony Cerrato MD -[facility] Work Phone: Start: 03-02-2025 End: 03-02-2025 ambulatory Deysigladys Collazo TENNIS INSTRUCTOR-C Work Phone: -[facility] Start: 03-02-2025 End: 03-02-2025 Dr. Vincent Flores MD -[facility] Start: 03-01-2025 ambulatory Vincent Chi Mark [facility] Start: 03-01-2025 Dr. Ebony Cerrato MD -[facility] Work Phone: Start: 03-01-2025 End: 03-04-2025 Dr. Ebony Cerrato MD [facility] Work Phone: Start: 03-01-2025 End: 03-04-2025 ambulatory Deysi Haagen TENNIS INSTRUCTOR-C Work Phone: -[facility] Start: 02-27-2025 End: 02-27-2025 ambulatory Deysi Haagen TENNIS INSTRUCTOR-C Work Phone: -[facility] Start: 02-27-2025 End: 02-27-2025 Dr. Vincent Flores MD -[facility] Start: 02-27-2025 End: 02-27-2025 ambulatory [facility] Facility:[facility] Start: 02-21-2025 End: 02-21-2025 ambulatory Deysi Haagen TENNIS INSTRUCTOR-C Work Phone: -[facility] Start: 02-21-2025 End: 02-21-2025 Dr. Vincent Flores MD -[facility] Start: 02-21-2025 End: 02-21-2025 ambulatory [facility] Facility:[facility] Start: 02-16-2025 End: 02-16-2025 Dr. Magdy Pang MD -Emergency Department Work Phone: Start: 02-16-2025 End: 02-16-2025 Emergency department patient visit Deysi Haagen TENNIS INSTRUCTOR-C Work Phone: -Emergency Department Work Phone: Start: 02-13-2025 End: 02-13-2025 ambulatory Deysi Haagen TENNIS INSTRUCTOR-C Work Phone: -Laboratory Start: 02-13-2025 End: 02-13-[address] Vincent Flores MD -Laboratory Work Phone: Start: 02-13-2025 End: 02-13-2025 Dr. Vincent Flores MD -Laboratory Work Phone: Start: 02-13-2025 End: 02-13-2025 ambulatory Vincent Cas Flores Facility:[facility] Start: 02-08-2025 End: 02-08-2025 ambulatory Deysi Haagen TENNIS INSTRUCTOR-C Work Phone: -[facility] Start: 02-08-2025 End: 02-08-2025 Patient encounter procedure Pau Davis -[facility] Work Phone: Start: 02-08-2025 End: 02-08-2025 Dr. Yaniv Masters MD -[facility] Work Phone: Start: 02-05-2025 End: 02-05-[address] Juan Diego Huynh MD -[facility] Work Phone: Start: 02-05-2025 End: 02-05-2025 Dr. Juan Diego Huynh MD -[facility] Work Phone: Start: 02-05-2025 End: 02-05-2025 ambulatory Deysi Haagen TENNIS INSTRUCTOR-C Work Phone: -[facility] Start: 02-05-2025 End: 02-05-2025 ambulatory Vincent Chi Mark Facility:[facility] Start: 02-01-2025 End: 02-01-2025 ambulatory Deysi Hadon TENNIS INSTRUCTOR-C Work Phone: -[facility] Start: 02-01-2025 End: 02-01-[address] Vincent Flores MD -[facility] Start: 02-01-2025 End: 02-01-2025 Dr. Vincent Flores MD -[facility] Start: 02-01-2025 End: 02-01-2025 ambulatory [facility] Facility:[facility] Start: 01-26-2025 End: 01-30-2025 Refill Carla Burdick MD Work Phone: Cardiology Comment on above: Refill Request Start: 01-23-2025 End: 01-23-2025 ambulatory Deysi Hadon TENNIS INSTRUCTOR-C Work Phone: -Laboratory Start: 01-23-2025 End: 01-23-[address] Jeremy Mcgarry MD -Laboratory Work Phone: Start: 01-23-2025 End: 01-23-2025 Dr. Jeremy Mcgarry MD -Laboratory Work Phone: Start: 01-23-2025 End: 01-23-2025 ambulatory Vincent Chi Mark Facility:[facility] Start: 01-11-2025 Non-patient / Non-visit Dr. Luis Stovall DO -[facility] Work Phone: Start: 01-11-2025 Dr. Dianne sapp [facility] Work Phone: Start: 01-10-2025 Non-patient / Non-visit Dr. Luis metzger [facility] Work Phone: Start: 01-10-2025 Dr. Dianne sapp [facility] Work Phone: Start: 01-09-2025 Non-patient / Non-visit Dr. Luis metzger [facility] Work Phone: Start: 01-09-2025 [facility] Work Phone: Start: 01-08-2025 Non-patient / Non-visit Dr. Luis metzger [facility] Work Phone: Start: 01-08-2025 [facility] Work Phone: Start: 01-08-2025 ambulatory [facility] Facility :[facility] Start: 01-08-2025 Non-patient / Non-visit Dr. Garcia [facility] Start: 01-08-2025 Dr. Yaniv Masters [facility] Start: 01-08-2025 ambulatory Carla Suarez ty:[facility] Start: 01-08-2025 Non-patient / Non-visit Dr. Abundio wells MD -[facility] Start: 01-08-2025 Dr. Abundio Turcios MD [facility] Start: 01-07-2025 End: 01-11-2025 ambulatory Radha Heller Facility:[facility] Start: 01-07-2025 End: 01-11-2025 Evaluation and management [...] Start: 01-01-2025 End: 01-01-2025 ambulatory CARLA BURDICK Facility:[facility] Start: 12-26-2024 End: 12-26-2024 Orders Only Albin Gu APRN.SOCIAL SCIENCE INSTRUCTOR Work Phone: Cardiology Comment on above: Returning Patient's Call Start: 12-20-2024 End: 02-19-2025 Follow-up encounter Deysi Collazo APRN.CNP Work Phone: [facility] Start: 12-20-2024 End: 12-20-2024 Patient encounter procedure Lars Silva DO Work Phone: Vascular Surgery Comment on above: Superior mesenteric artery stenosis (HCC) (Primary Dx) Start: 12-20-2024 End: 12-20-2024 ambulatory LARS SILVA Facility:[facility] Start: 12-19-2024 End: 12-19-2024 Patient encounter procedure Albin Gu APRN.SOCIAL SCIENCE INSTRUCTOR Work Phone: Cardiology Comment on above: Chronic diastolic co ngestive heart failure (HCC) (Primary Dx); Primary hypertension; SSS (sick sinus syndrome) (HCC); Longstanding persistent atrial fibrillation (HCC) Start: 12-19-2024 End: 12-19-2024 ambulatory ALBIN GU Facility:[facility] Start: 12-13-2024 End: 12-13-2024 Telephone encounter Deysi Collazo APRN.CNP Work Phone: [facility] Comment on above: Transition Of Care Start: 12-11-2024 End: 12-11-2024 Telephone encounter Deysi Collazo APRN.SOCIAL SCIENCE INSTRUCTOR Work Phone: [address] [place] [address] Start: 12-10-2024 End: 12-12-2024 Evaluation and management of inpatient [facility] Facility:[facility] Start: 12-01-2024 End: 12-01-2024 ambulatory CARLA BURDICK Facility:[facility] Start: 11-20-2024 End: 11-20-2024 Patient encounter [...] Start: 11-20-2024 End: 11-20-2024 ambulatory CARLA BURDICK Facility:[facility] Start: 11-15-2024 End: 11-15-2024 Follow-up encounter Carla Burdick MD Work Phone: [facility] Cardiology [place] Start: 11-13-2024 End: 11-13-2024 ambulatory [facility] Facility:[facility] Start: 11-06-2024 End: 11-06-2024 ambulatory CARLA BURDICK Facility:[facility] Start: 11-06-2024 End: 11-06-2024 Patient encounter [...] 11-03-2024 End: 11-03-2024 Telephone encounter Albin Gu APRN.SOCIAL SCIENCE INSTRUCTOR Work Phone: Cardiology Comment on above: Results Start: 11-03-2024 End: 11-03-2024 ambulatory ALBIN GU Facility:[facility] Start: 11-03-2024 End: 11-03-2024 Patient encounter procedure Albin Gu APRN.SOCIAL SCIENCE INSTRUCTOR Work Phone: Cardiology Comment on above: Chronic diastolic co ngestive heart failure (HCC) (Primary Dx); Primary hypertension; SSS (sick sinus syndrome) (HCC); Longstanding persistent atrial fibrillation (HCC); Stage 3b chronic kidney disease (HCC) Start: 11-03-2024 End: 11-03-2024 ambulatory ALBIN GU Facility:[facility] Start: 10-31-2024 End: 12-31-2024 Follow-up encounter Shaye Domingo APRN.CNP Work Phone: [facility] Start: 10-31-2024 End: 10-31-2024 ambulatory SHAYE DOMINGO Facility:[facility] Start: 10-31-2024 End: 10-31-2024 Office outpatient visit 25 minutes Shaye Domingo APRN.SOCIAL SCIENCE INSTRUCTOR Work Phone: [facility] Comment on above: Acute mesenteric isc hemia [...] 10-12-2024 End: 10-12-2024 Telephone encounter Albin Gu APRN.SOCIAL SCIENCE INSTRUCTOR Work Phone: Cardiology Comment on above: Patient Update Start: 07-31-2024 End: 07-31-2024 Telephone encounter Melida Koo APRN.CNP Work Phone: Cardiology Start: 07-07-2024 End: 07-07-2024 ambulatory DIANNE LE Facility:[facility] Start: 07-07-2024 End: 07-07-2024 ambulatory DIANNE LE Facility:[facility] Start: 04-07-2024 End: 04-07-2024 Patient encounter procedure Albin Gu APRN.CNP Work Phone: Cardiology Comment on above: Chronic diastolic co ngestive heart failure (HCC) (Primary Dx); Primary hypertension; SSS (sick sinus syndrome) (HCC); Longstanding persistent atrial fibrillation (HCC) Start: 04-07-2024 End: 04-07-2024 ambulatory ALBIN GU Facility:[facility] Start: 03-14-2024 End: 03-14-2024 Refill Melida Koo TEXT TRANSCRIBER.SOCIAL SCIENCE INSTRUCTOR Work Phone: Cardiology Start: 02-21-2024 End: 02-21-2024 Telephone encounter Melida Koo TEXT TRANSCRIBER.SOCIAL SCIENCE INSTRUCTOR Work Phone: Cardiology Start: 02-17-2024 ambulatory Carla dempsey MD Work Phone: Cardiology Comment on above: NT Pro BNP Start: 02-15-2024 End: 02-15-2024 ambulatory DIANNE HAASORY LE Facility:[facility] Start: 02-07-2024 Telephone encounter Melida walker APRN.SOCIAL SCIENCE INSTRUCTOR Work Phone: Cardiology Comment on above: Recheck Chronic diastolic co ngestive heart failure (HCC) (Primary Dx) Start: 02-04-2024 Telephone encounter Albin amaro APRN.SOCIAL SCIENCE INSTRUCTOR Work Phone: Cardiology Comment on above: Appointment Results Start: 02-03-2024 End: 02-03-2024 ambulatory [facility] Facility:[facility] Start: 01-17-2024 End: 01-17-2024 [facility] Start: 01-17-2024 End: 01-17-2024 Patient encounter [...] Office outpatient visit 15 minutes Deysi Collazo APRN.SOCIAL SCIENCE INSTRUCTOR Work Phone: [facility] Comment on above: URI, acute (Primary Dx) Start: 11-26-2023 ambulatory Valentine Meneses RN Ambulato ry Care Management Comment on above: YONG SAM RN ( ED Utilization Review per request of payer) Start: 11-25-2023 End: 11-25-2023 Patient encounter procedure Albin Gu TEXT TRANSCRIBER.SOCIAL SCIENCE INSTRUCTOR Work Phone: Cardiology Comment on above: Chronic diastolic co ngestive heart failure (HCC) (Primary Dx); Primary hypertension; SSS (sick sinus syndrome) (HCC); Longstanding persistent atrial fibrillation (HCC); Acute systolic CHF (congestive heart failure) (HCC) Start: 11-23-2023 ambulatory Ralph Zelaya Work Phone: Hematology/Oncology Comment on above: Results Start: 11-22-2023 End: 11-22-2023 Office outpatient visit 25 minutes Deysi Collazo APRN.SOCIAL SCIENCE INSTRUCTOR Work Phone: [facility] Comment on above: Acute systolic CHF ( congestive heart failure) (HCC) (Primary Dx); Hyponatremia; Hypokalemia Start: 11-19-2023 Telephone encounter Albin amaro APRN.SOCIAL SCIENCE INSTRUCTOR Work Phone: Cardiology Comment on above: Patient Question Start: 11-17-2023 Telephone encounter Gwen Valentine RN Cardiology Comment on above: Service Learning Coordinator - O ther (CHF) Start: 11-16-2023 ambulatory Geri Montes RN Amb ulatory Care Management Comment on above: YONG SAM RN ( E.D. Utilization Review per Payer Request.) Start: 11-15-2023 Telephone encounter Nara Malone RN NOC Comment on above: Transition Of Care Start: 11-12-2023 Orders Only Ying saenz TEXT TRANSCRIBER.SOCIAL SCIENCE INSTRUCTOR Work Phone: Cardiology Comment on above: Stage 3 chronic kidn ey disease, unspecified whether stage 3a or 3b CKD (HCC) (Primary Dx) Initial Consult (HEA RT FAILURE [id number] ) Start: 11-08-2023 End: 11-08-2023 Emergency department patient visit Gerard LE Facility:[facility] Start: 11-08-2023 End: 11-08-2023 Patient encounter procedure [...] de la cruz PA-C Work Phone: Family [facility] [place] Comment on above: moving forward Start: 11-02-2023 E-mail encounter fro m caregiver Gerard Le PA-C Work Phone: Family Medicine [place] Start: 11-02-2023 Telephone encounter Gerard Le PA-C Work Phone: [facility] [place] Comment on above: Results; Orders Start: 10-31-2023 Telephone encounter Gerard Le PA-C Work Phone: [facility] [place] Start: 10-19-2023 End: 10-19-2023 Patient encounter procedure Lars Silva DO Work Phone: Vascular Surgery Comment on above: Venous insufficiency (Primary Dx) Start: 10-18-2023 End: 10-18-2023 Subsequent hospital visit by physician Xr [facility] [place] Work Phone: Radiology Comment on above: Acute systolic CHF ( congestive heart failure) ([facility]) [I50.21] Start: 10-18-2023 End: 10-18-2023 Patient encounter procedure Gerard Le PA-C Work Phone: [facility] [place] Comment on above: SSS (sick sinus synd juliana) ([facility]) (Primary Dx); Paroxysmal atrial fibrillation ([facility]); S/P placement of cardiac pacemaker; Chronic combined systolic and diastolic CHF (congestive heart failure) ([facility]); Dilated cardiomyopathy ([facility]); Ascending aorta dilatation ([facility]); Pedro aneurysm of anterior communicating artery; History of pulmonary embolism; Presence of Watchman left atrial appendage closure device; Platelet inhibition due to Plavix; Primary hypertension; Hyperlipidemia with target LDL less than 70; Heme + stool; Epigastric pain; Blood loss anemia; Acute systolic CHF (congestive heart failure) ([facility]); Vitamin D deficiency Start: 10-15-2023 Telephone encounter Carla Burdick MD Work Phone: Cardiology Comment on above: Patient Update Start: 10-14-2023 End: 10-14-2023 Patient encounter procedure Lars Molina Mellisa CURRY Work Phone: Vascular Surgery Comment on above: Venous insufficiency (Primary Dx) Start: 10-11-2023 Follow-up encounter Yin Joseph MD Work Phone: [facility] Start: 10-11-2023 Pacemaker Remote F/U Yin Joseph MD Work Phone: [facility] Department Start: 07-05-2023 End: 07-05-2023 Patient encounter procedure Bijan Cole MD Work Phone: [facility] Comment on above: Influenza-like illne ss (Primary Dx) Start: 06-07-2023 ambulatory Gerard de la cruz PA-C Work Phone: [facility] [place] Comment on above: Rt. Foot Bone Fractu re Start: 06-01-2023 End: 06-01-2023 Subsequent hospital visit by physician David [facility] [place] Work Phone: Radiology Comment on above: Closed nondisplaced fracture of fifth metatarsal bone of right foot with routine healing, subsequent encounter [L90.354N] Start: 04-30-2023 End: 04-30-2023 Subsequent hospital visit by physician Ct [facility] (I-Stat) Work Phone: Cat Scan Comment on above: Lung nodule, solitar y [R91.1] Start: 04-12-2023 End: 04-12-2023 Subsequent hospital visit by physician Xr [facility] [place] Work Phone: Radiology Comment on above: Pain of right middle finger [Z20.214] Start: 03-23-2023 Follow-up encounter Yin Joseph MD Work Phone: [facility] Start: 03-23-2023 Pacemaker Remote F/U Yin Joseph MD Work Phone: [facility] Department Start: 03-15-2023 Refill Gerard KING-Ivett Work Phone: Family Medicine [place] Comment on above: Refill Request Start: 01-28-2023 Telephone encounter Gerard KING-Ivett Work Phone: [facility] [place] Comment on above: Appointment Start: 01-08-2023 Telephone encounter Gerard KING-Ivett Work Phone: [facility] [place] Comment on above: Orders Start: 01-07-2023 End: 01-07-2023 Patient encounter procedure Gerard KING-Ivett Work Phone: Family Medicine [place] Comment on above: Bilateral carotid ar marcelo stenosis (Primary Dx); Atherosclerosis of stock[place] artery of both lower extremities with intermittent claudication (HCC); 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HCC); Pain in both lower legs; Iron 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; Iron malabsorption; S/P placement of cardiac pacemaker; SSS (sick sinus syndrome) ([facility]); Chronic combined systolic and diastolic CHF (congestive heart failure) ([facility]); Dilated cardiomyopathy ([facility]); Ascending aorta dilatation ([facility]); H/O rheumatic heart disease; History of prosthetic [...] Follow-up encounter Yin Joseph MD [facility] Start: 12-22-2022 Pacemaker Remote F/U Yin Joseph MD Work Phone: [facility] Department Start: 12-10-2022 ambulatory Gerard Butleri ty:[facility] Start: 10-06-2022 End: 10-06-2022 Patient encounter procedure Gerard Le PA-C Work Phone: [facility] Comment on above: S/P placement of car [...] End: 10-05-2022 Subsequent hospital visit by physician [facility] [place] [place] [facility] Mob 2 Work Phone: Radiology [...] Follow-up encounter Yin Joseph MD Work Phone: [facility] Start: 09-21-2022 Pacemaker Remote F/U Yin Joseph MD Work Phone: [facility] Start: 08-30-2022 Refill Gerard Dodge on [...] Follow-up encounter Yin Joseph MD Work Phone: [facility] Start: 06-23-2022 Pacemaker Remote F/U Yin Joseph MD Work Phone: [facility] Start: 05-23-2022 Refill Sonny Lund MD Work Phone: Hematology/Oncology Comment on above: Refill Request; Refi ll Request Start: 05-14-2022 End: 05-14-2022 ambulatory Sonny Lund MD Work Phone: Hematology/Oncology Comment on above: Iron deficiency anem ia secondary to inadequate dietary iron intake (Primary Dx); Chronic renal failure, stage 3b (HCC) Start: 05-14-2022 End: 05-14-2022 Patient encounter procedure Sonny Lund MD Work Phone: [facility] Start: 04-28-2022 End: 04-28-[address] [facility] Work Phone: Hematology/Oncology Comment on above: Iron deficiency anem ia secondary to inadequate dietary iron intake (Primary Dx); Iron malabsorption Start: 04-22-2022 Refill Carla dempsey MD Work Phone: Cardiology Comment on above: Refill Request Start: 04-22-2022 End: 04-22-2022 ambulatory Treatment 7 Tawanda [facility] Work Phone: Hematology/Oncology Comment on above: Iron deficiency anem ia secondary to inadequate dietary iron intake (Primary Dx); Iron malabsorption Start: 04-20-2022 End: 04-20-2022 ambulatory Treatment Rm 9 Tawanda [facility] Work Phone: Hematology/Oncology Comment on above: Iron deficiency anem ia secondary to inadequate dietary iron intake (Primary Dx); Iron malabsorption Start: 04-17-2022 End: 04-17-2022 ambulatory Treatment Rm 9 Tawanda [facility] Work Phone: Hematology/Oncology Comment on above: Iron deficiency anem ia secondary to inadequate dietary iron intake (Primary Dx); Iron malabsorption Start: 04-09-2022 Telephone encounter Gerard Le PA-C Work Phone: Family Medicine [place] Comment on above: Orders Start: 04-09-2022 End: [...] encounter procedure Gerard Le PA-C Work Phone: [facility] Comment on above: Hospital discharge f ollow-up [...] Telephone encounter Gerard Le PA-C Work Phone: [facility] Comment on above: Hospital Follow Up; Appointment [...] Follow-up encounter Yin Joseph MD Work Phone: [facility] Start: 03-24-2022 Pacemaker Remote F/U Yin Joseph MD Work Phone: [facility] Start: 03-23-2022 Telephone encounter Brianna Betancourt Cardiology Comment on above: Service Learning Coordinator - O ther (CHF) Start: 03-21-2022 Telephone encounter Juan Diego Carroll MD Work Phone: [facility] Comment on above: Appointment Start: 03-20-2022 Admission to establishment Sheirdan manning RN Human Resources Department Supervisor Management Comment on above: Transition Of Care ( Tcm readmission) Start: 03-20-2022 ambulatory Sheridan Cervantes RN [employer] Start: 03-19-2022 End: 03-19-2022 Patient encounter procedure Gerard Le PA-C Work Phone: [facility] Comment on above: 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); Aortic prosthetic valve regurgitation, subsequent encounter; H/O rheumatic heart disease; Atrial fibrillation, unspecified type (HCC); Presence of Watchman left atrial appendage closure device; Anemia, blood loss; Primary hypertension Start: 03-05-2022 ambulatory Sheridan Cervantes RN IND Gem Comment on above: ABDIEL -; Watchmen Start: 03-05-2022 Follow-up encounter Sheridan Cervantes RN Human Resources Department Supervisor Management Comment on above: Transition Of Care ( Tcm follow up) Start: 03-03-2022 Follow-up encounter Lili Fay MD Work Phone: [facility] Start: 03-03-2022 End: 03-03-2022 Patient encounter procedure Lili Fay MD Work Phone: [facility] Department Comment on above: Longstanding persist ent atrial fibrillation (HCC) (Primary Dx); Presence of Watchman left atrial appendage closure device Paroxysmal atrial fi brillation (HCC); Presence of Watchman left atrial appendage closure device Start: 03-02-2022 Telephone encounter Saima England RN C ardiology Comment on above: Reminder Call (Trans esophageal Echo 03/03/22) Start: 02-25-2022 Patient Outreach Harika Tomas RN [facility] [place] Comment on above: Transition Of Care ( [facility] D[facility]C 02/24/2023 ) Start: 02-20-2022 End: 02-20-2022 Patient encounter procedure Gerard Le PA-C Work Phone: [facility] [place] Comment on above: Rectal bleeding (Nohemy stacie Dx); Anemia, blood loss; Diarrhea, unspecified type Start: 02-12-2022 Telephone encounter Chai Encinas MD Work Phone: General Surgery Comment on above: Procedure Follow Up (EGD completed on 01/02/2022) Start: 02-09-2022 Orders Only Candi Juarez nd TEXT TRANSCRIBER.SOCIAL SCIENCE INSTRUCTOR Work Phone: Cardiology Comment on above: Paroxysmal atrial fi brillation (HCC) (Primary Dx); Presence of Watchman left atrial appendage closure device Start: 01-21-2022 Orders Only Candi Juarez nd TEXT TRANSCRIBER.SOCIAL SCIENCE INSTRUCTOR Work Phone: Cardiology Comment on above: Paroxysmal atrial fi brillation (HCC) (Primary Dx) Patient Question (OR YUSUF FOR ABDIEL AND ECG) Start: 01-19-2022 Refill Emilia Domínguez i, MD Work Phone: Cardiology Comment on above: Refill Request Start: 01-16-2022 End: 01-16-2022 Patient encounter procedure Gerard Le PA-C Work Phone: [facility] [place] Comment on above: Atrial fibrillation, unspecified type (HCC) (Primary Dx); Presence of Watchman left atrial appendage closure device; Herpes zoster without complication Start: 01-09-2022 ambulatory Chandler villalobos MD Work Phone: Cardiology Comment on above: Patient Education (E PS-Watchman) Start: 01-09-2022 Follow-up encounter Randy Torrez MD Work Phone: [facility] Start: 01-09-2022 End: 01-09-2022 Patient encounter procedure Randy Torrez MD Work Phone: [facility] Department Comment on above: Atrial fibrillation, unspecified type (HCC) (Primary Dx); Gastrointestinal hemorrhage, unspecified gastrointestinal hemorrhage type; Anemia due to chronic blood loss; Other fatigue; SOB (shortness of breath) Start: 01-02-2022 End: 01-02-2022 Subsequent hospital visit by physician Chai Encinas MD Work Phone: [facility] Endoscopy Comment on above: Acute blood loss ane miguel [D62] Start: 01-01-2022 Telephone encounter Chai Encinas MD Work Phone: General Surgery Comment on above: 01-02-2022 egd [facility] a Start: 01-01-2022 End: 01-01-2022 Patient encounter procedure Chai Encinas MD Work Phone: General Surgery Comment on above: Anemia, blood loss ( Primary Dx); Acute blood loss anemia; Heme + stool; Sludge in gallbladder; Epigastric pain; Duodenal ulcer with hemorrhage Start: 12-30-2021 End: 12-30-2021 Patient encounter procedure [facility] Start: 12-29-2021 Telephone encounter Gerard Le PA-C Work Phone: Family Medicine [place] Comment on above: Orders Start: 12-27-2021 ambulatory Gerard Dodge on PA-C Work Phone: Family [facility] [place] Comment on above: Fatigue Start: 12-26-2021 ambulatory Gerard Dodge on PA-C Work Phone: Family Medicine [place] Comment on above: Anemia - hemoglobin Start: 12-25-2021 Telephone encounter Chandler ortiz MD Work Phone: Cardiology Comment on above: Patient Question (ME DICATION DECREASE) Start: 12-19-2021 Telephone encounter Gerard Le PA-C Work Phone: [facility] [place] Comment on above: Rectal Problem Start: 12-15-2021 End: 12-15-2021 Subsequent hospital visit by physician David [facility] [place] Work Phone: Radiology Comment on above: Ischial bursitis of left side [M70.72] Start: 12-15-2021 End: 12-15-2021 Patient encounter procedure Gerard Le PA-C Work Phone: [facility] [place] Comment on above: Renal mass, right (P rimary Dx); History of pulmonary embolism; Primary hypertension; Hyperlipidemia with target LDL less than 70; Dilated cardiomyopathy ([facility]); SSS (sick sinus syndrome) (HCC); Chronic diastolic congestive heart failure (HCC); Ascending aorta dilatation ([facility]); Pedro aneurysm of anterior communicating artery; Bilateral carotid artery stenosis; Chronic anticoagulation; Duodenal ulcer; Esophageal stenosis; Hypomagnesemia; Stage 3 chronic renal impairment associated with type 2 diabetes mellitus (HCC); History of ischemic colitis; Adenomatous polyp of descending colon; PAD (peripheral artery disease) ([facility]); Type 2 diabetes mellitus with diabetic peripheral angiopathy without gangrene, without long-term current use of insulin ([facility]); Heme + stool; Epigastric pain; Blood loss anemia; Chronic insomnia; Ischial bursitis of left side Start: 12-11-2021 Follow-up encounter Yin Joseph MD Work Phone: [facility] Start: 12-11-2021 Pacemaker Remote F/U Yin Joseph MD Work Phone: [facility] Start: 12-04-2021 Refill Chandler villalobos MD Work Phone: Cardiology Start: 12-03-2021 Telephone encounter Chandler ortiz MD Work Phone: Cardiology Comment on above: Patient Question (ME DICATION QUESTION - XARELTO) Start: 11-27-2021 Orders Only Na Ramirez TEXT TRANSCRIBER.SOCIAL SCIENCE INSTRUCTOR Work Phone: Vascular Surgery Comment on above: PAD (peripheral jennifer ry disease) (HCC) (Primary Dx); PVD (peripheral vascular disease) (HCC) Start: 11-26-2021 End: 11-26-2021 Office outpatient visit 25 minutes Na Ramirez TEXT TRANSCRIBER.SOCIAL SCIENCE INSTRUCTOR Work Phone: Vascular Surgery Comment on above: PAD (peripheral jennifer ry disease) (HCC) (Primary Dx); Anemia due to chronic illness Start: 10-22-2021 Refill Yin Joseph MD Work Phone: Vascular Surgery Comment on above: Refill Request Start: 09-24-2021 Follow-up encounter Yin Joseph MD Work Phone: [facility] Start: 09-24-2021 Pacemaker Remote F/U Yin Joseph MD Work Phone: [facility] Start: 09-24-2021 Telephone encounter Chai Encinas MD Work Phone: General Surgery Comment on above: Appointment Cancelle d Start: 09-23-2021 Telephone encounter Chandler ortiz MD Work Phone: Cardiology Comment on above: Appointment Reschedu led (Due to change in physician's schedule) Start: 02-14-2021 End: 02-15-2021 ambulatory PROVIDER NOT IN SYSTEM [facility] Start: 01-23-2019 End: 01-23-2019 Refill Lizeth Mabry [facility] Cardiology Start: 01-19-2019 End: 01-19-2019 Office outpatient visit 15 minutes Mars Chung Work Phone: [facility] Cardiology Comment on above: Persistent atrial fi brillation (Primary Dx); 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; Moderate mitral regurgitation; Status post aortic valve replacement with tissue valve Start: 01-08-2014 End: 09-12-2021 Patient encounter status CARMELINA Le PA-C Work Phone: [facility] Procedures Date Procedure Procedure Detail Performing Clinician Start: 05-02-2025 Mean corpuscular hemoglobin concentration determination Deysi Collazo TENNIS INSTRUCTOR-C Work Phone: Start: 05-02-2025 Neutrophil count Deysi Collazo TENNIS INSTRUCTOR-C Work Phone: Start: 05-02-2025 Nucleated red blood cell count procedure Deysi Copeagen TENNIS INSTRUCTOR-C Work Phone: Start: 05-02-2025 Platelet mean volume determination Gilmer Collazo TENNIS INSTRUCTOR-C Work Phone: Start: 05-02-2025 Vitamin D, 25-hydroxy measurement Gopi Collazo TENNIS INSTRUCTOR-C Work Phone: Start: 04-24-2025 Immature reticulocyte fraction Deysi hernandez TENNIS INSTRUCTOR-C Work Phone: Start: 04-24-2025 Mean corpuscular hemoglobin concentration determination Dyesi Collazo TENNIS INSTRUCTOR-C Work Phone: Start: 04-24-2025 Neutrophil count Deysi Collazo TENNIS INSTRUCTOR-C Work Phone: Start: 04-24-2025 Nucleated red blood cell count procedure Deysi Collazo TENNIS INSTRUCTOR-C Work Phone: Start: 04-24-2025 Platelet mean volume determination Gilmer Collazo TENNIS INSTRUCTOR-C Work Phone: Start: 04-24-2025 Total iron binding capacity measurement Deysi Copeagen TENNIS INSTRUCTOR-C Work Phone: Start: 04-02-2025 Bacterial nucleic acid assay Deysi Nickerson gen TENNIS INSTRUCTOR-C Work Phone: Start: 04-02-2025 Anaerobic microbial culture Deysi Copeag en TENNIS INSTRUCTOR-C Work Phone: Start: 04-02-2025 Gram stain microscopy Deysi Collazo TENNIS INSTRUCTOR-C Work Phone: Start: 04-02-2025 End: 04-02-2025 Microbial culture, routine Deysi Haage n TENNIS INSTRUCTOR-C Work Phone: Start: 03-13-2025 Blood count smear mcrscp w/mnl difrntl wbc count Deysi Collazo TENNIS INSTRUCTOR-C Work Phone: Start: 03-13-2025 Immature reticulocyte fraction Deysi hernandez TENNIS INSTRUCTOR-C Work Phone: Start: 03-13-2025 Mean corpuscular hemoglobin concentration determination Deysi Collazo TENNIS INSTRUCTOR-C Work Phone: Start: 03-13-2025 Neutrophil count Deysi Collazo TENNIS INSTRUCTOR-C Work Phone: Start: 03-13-2025 Nucleated red blood cell count procedure Deysi Copeagen TENNIS INSTRUCTOR-C Work Phone: Start: 03-13-2025 Platelet mean volume determination Gilmer Copeagen TENNIS INSTRUCTOR-C Work Phone: Start: 03-13-2025 Total iron binding capacity measurement Deysi Collazo TENNIS INSTRUCTOR-C Work Phone: Start: 03-09-2025 Blood count smear mcrscp w/mnl difrntl wbc count Deysi Collazo TENNIS INSTRUCTOR-C Work Phone: Start: 03-09-2025 Mean corpuscular hemoglobin concentration determination Deysi Copeagen TENNIS INSTRUCTOR-C Work Phone: Start: 03-09-2025 Neutrophil count Deysi Collazo TENNIS INSTRUCTOR-C Work Phone: Start: 03-09-2025 Nucleated red blood cell count procedure Deysi Copeagen TENNIS INSTRUCTOR-C Work Phone: Start: 03-09-2025 Platelet mean volume determination Gilmer Copeagen TENNIS INSTRUCTOR-C Work Phone: Start: 03-09-2025 Reactive lymphocyte count Deysi Collazo TENNIS INSTRUCTOR-C Work Phone: Start: 02-27-2025 Urine culture Deysi Collazo TENNIS INSTRUCTOR-C Work Phone: Start: 02-27-2025 Blood count smear mcrscp w/mnl difrntl wbc count Deysi Collazo TENNIS INSTRUCTOR-C Work Phone: Start: 02-27-2025 Mean corpuscular hemoglobin concentration determination Deysi Haagen TENNIS INSTRUCTOR-C Work Phone: Start: 02-27-2025 Neutrophil count Deysi Collazo TENNIS INSTRUCTOR-C Work Phone: Start: 02-27-2025 Nucleated red blood cell count procedure Deysi Collazo TENNIS INSTRUCTOR-C Work Phone: Start: 02-27-2025 Platelet mean volume determination Gilmer Collazo TENNIS INSTRUCTOR-C Work Phone: Start: 02-27-2025 Urine microscopy: red cells Deysi edouard TENNIS INSTRUCTOR-C Work Phone: Start: 02-27-2025 Urnls dip stick/tablet reagent auto microscopy Deysi Collazo TENNIS INSTRUCTOR-C Work Phone: Start: 02-21-2025 Blood count smear mcrscp w/mnl difrntl wbc count Deysi Collazo TENNIS INSTRUCTOR-C Work Phone: Start: 02-21-2025 Mean corpuscular hemoglobin concentration determination Deysi Collazo TENNIS INSTRUCTOR-C Work Phone: Start: 02-21-2025 Neutrophil count Deysi Collazo TENNIS INSTRUCTOR-C Work Phone: Start: 02-21-2025 Nucleated red blood cell count procedure Deysi Collazo TENNIS INSTRUCTOR-C Work Phone: Start: 02-21-2025 Platelet mean volume determination Gilmer Collazo TENNIS INSTRUCTOR-C Work Phone: Start: 02-16-2025 Blood count smear mcrscp w/mnl difrntl wbc count Deysi Collazo TENNIS INSTRUCTOR-C Work Phone: Start: 02-16-2025 Estimated creatinine clearance Deysi henleysilke TENNIS INSTRUCTOR-C Work Phone: Start: 02-16-2025 Mean corpuscular hemoglobin concentration determination Deysi Collazo TENNIS INSTRUCTOR-C Work Phone: Start: 02-16-2025 Neutrophil count Deysi Collazo TENNIS INSTRUCTOR-C Work Phone: Start: 02-16-2025 Nucleated red blood cell count procedure Deysi Collazo TENNIS INSTRUCTOR-C Work Phone: Start: 02-16-2025 Platelet mean volume determination Gilmer Collazo TENNIS INSTRUCTOR-C Work Phone: Start: 02-16-2025 X-ray of chest, PA and lateral views Deysi Collazo TENNIS INSTRUCTOR-C Work Phone: Start: 02-13-2025 Osmolality measurement, serum Deysi ochoa TENNIS INSTRUCTOR-C Work Phone: Start: 02-13-2025 Blood count smear mcrscp w/mnl difrntl wbc count Deysi Collazo TENNIS INSTRUCTOR-C Work Phone: Start: 02-13-2025 Mean corpuscular hemoglobin concentration determination Deysi Collazo TENNIS INSTRUCTOR-C Work Phone: Start: 02-13-2025 Neutrophil count Deysi Collazo TENNIS INSTRUCTOR-C Work Phone: Start: 02-13-2025 Nucleated red blood cell count procedure Deysi Collazo TENNIS INSTRUCTOR-C Work Phone: Start: 02-13-2025 Platelet mean volume determination Gilmer Collazo TENNIS INSTRUCTOR-C Work Phone: Start: 02-01-2025 Blood count smear mcrscp w/mnl difrntl wbc count Deysi Collazo TENNIS INSTRUCTOR-C Work Phone: Start: 02-01-2025 Mean corpuscular hemoglobin concentration determination Deysi Collazo TENNIS INSTRUCTOR-C Work Phone: Start: 02-01-2025 Neutrophil count Deysi Collazo TENNIS INSTRUCTOR-C Work Phone: Start: 02-01-2025 Nucleated red blood cell count procedure Deysi Collazo TENNIS INSTRUCTOR-C Work Phone: Start: 02-01-2025 Platelet mean volume determination Gilmer Collazo TENNIS INSTRUCTOR-C Work Phone: Start: 02-01-2025 Vitamin D, 25-hydroxy measurement Gopi Collazo TENNIS INSTRUCTOR-C Work Phone: Comment on above: Vitamin D StatusDeficiency: <20 ng/mL (5 0nmol/L)Insufficiency: 20-30 ng/mL (50-75 nmol/L)Sufficiency: 30-100 ng/mL (75-250 nmol/L)Toxicity: >100 ng/mL (>250 nmol/L) Start: 01-23-2025 Blood count smear mcrscp w/mnl difrntl wbc count Deysi Collazo NP-Peek@U Work Phone: Start: 01-23-2025 Hepatitis C antibody measurement Deysi Collazo NP-Peek@[employer] Work Phone: Comment on above: Reactive: Presumptive evidence of antibo dies to HCV. Follow CDC recommendations for supplemental testing.Non-Reactive: Antibodies to HCV were not detected; does not exclude the possibility of exposure to HCVReactive Results are presumptive evidence of antibodies to HCV. Follow CDC recommendations for supplemental testing.Order confirmation testing: HCV Quant by PCR testing - HCVPCR #[id number] Non Reactive: < 0.8 Equivocal: >/= 0.8 to < 1.0 Reactive: >/= 1.0The CDC requires that a reactive/equivocal HCV antibody result be sent out for confirmation. HCV Quant by PCR testing. Start: 01-23-2025 Mean corpuscular hemoglobin concentration determination Deysi Collazo TENNIS INSTRUCTOR-Peek@[employer] Work Phone: Start: 01-23-2025 Neutrophil count Deysi Collazo NP-Peek@[facility] Work Phone: Start: 01-23-2025 Nucleated red blood cell count procedure Deysi Collazo [employer] Work Phone: Start: 01-23-2025 Platelet mean volume determination Gilmer Collazo [employer] Work Phone: Start: 01-23-2025 Serum inorganic phosphate measurement Deysi Collazo NP-Peek@[facility] Work Phone: Start: 01-23-2025 Total cholesterol:HDL ratio measurement Deysi Collazo NP-Peek@[facility] Work Phone: Start: 01-23-2025 Triglycerides measurement Deysi Collazo TENNIS INSTRUCTOR-Peek@[employer] Work Phone: Start: 01-23-2025 Vitamin D, 25-hydroxy measurement Gopi Collazo TENNIS INSTRUCTOR-Peek@[employer] Work Phone: Comment on above: Vitamin D StatusDeficiency: <20 ng/mL (5 0nmol/L)Insufficiency: 20-30 ng/mL (50-75 nmol/L)Sufficiency: 30-100 ng/mL (75-250 nmol/L)Toxicity: >100 ng/mL (>250 nmol/L) Start: 01-11-2025 Estimated creatinine clearance Deysi H aagsilke TENNIS INSTRUCTOR-C Work Phone: Start: 01-08-2025 Blood count smear mcrscp w/mnl difrntl wbc count Deysi Collazo TENNIS INSTRUCTOR-C Work Phone: Start: 01-08-2025 Mean corpuscular hemoglobin concentration determination Deysi Copedon TENNIS INSTRUCTOR-C Work Phone: Start: 01-08-2025 Neutrophil count Deysi Collazo TENNIS INSTRUCTOR-C Work Phone: Start: 01-08-2025 Nucleated red blood cell count procedure Deysi Copedon TENNIS INSTRUCTOR-C Work Phone: Start: 01-08-2025 Platelet mean volume determination Gilmer Collazo TENNIS INSTRUCTOR-C Work Phone: Start: 01-08-2025 Total cholesterol:HDL ratio measurement Deysi Collazo TENNIS INSTRUCTOR-C Work Phone: Start: 01-08-2025 Triglycerides measurement Deysi Collazo TENNIS INSTRUCTOR-C Work Phone: Start: 01-07-2025 CT angiography of head and neck Deysi Hadon TENNIS INSTRUCTOR-C Work Phone: Start: 01-07-2025 CT of head without contrast Deysi Vipullauren edouard TENNIS INSTRUCTOR-C Work Phone: Start: 01-07-2025 X-ray of chest, PA and lateral views Deysi Hadon TENNIS INSTRUCTOR-C Work Phone: Start: 01-07-2025 Estimated creatinine clearance Deysi H aagsilke TENNIS INSTRUCTOR-C Work Phone: Start: 11-08-2023 Ecg routine ecg [...] foot complete minimum 3 views Gerard Dodgeon PA-Peek@[facility] Work Phone: Start: 04-30-2023 Ct thorax w/o contrast material M Haider graham Le PA-C Work Phone: Start: 04-12-2023 Radex fingr minimum 2 views M Claudia Lopez [employer] Work Phone: Start: 03-23-2023 PACEMAKER REMOTE CHECK [...] 2d w/wo m-mode rec f-up/lmtd Candi Beauchamp TEXT TRANSCRIBER.SOCIAL SCIENCE INSTRUCTOR Work Phone: Start: 01-09-2022 PACEMAKER CLINIC CHECK [...] DTaP,Tdap,Td Vaccine (3 - Td or Tdap) [facility] Start: 12-12-2025 Complete blood count Hemoglobin/Hematocrit [facility] Start: 12-12-2025 Creatinine measurement Serum Creatinine [facility] Start: 12-11-2025 Complete blood count Hemoglobin/Hematocrit [facility] Start: 12-11-2025 Creatinine measurement Serum Creatinine [facility] Start: 12-11-2025 Hepatitis B screening Urine Albumin:Creatinine Ratio [facility] Start: 11-20-2025 Creatinine measurement Serum Creatinine [facility] Start: 11-13-2025 Creatinine measurement Serum Creatinine [facility] Start: 11-03-2025 BP Controlled (<130/80) BP Controlled (<130/80) [facility] Start: 11-03-2025 Creatinine measurement Serum Creatinine [facility] Start: 10-31-2025 Annual PCP Team Chronic Disease Visit Annual PCP Team Chronic Disease Visit [facility] Start: 10-31-2025 Complete blood count Hemoglobin/Hematocrit [facility] Start: 10-31-2025 Creatinine measurement Serum Creatinine [facility] Start: 10-10-2025 Complete blood count Hemoglobin/Hematocrit [facility] Start: 10-03-2025 Hepatitis B screening Urine Albumin:Creatinine Ratio [facility] Start: 10-02-2025 Hepatitis B surface antibody level LDL Cholesterol [facility] Start: 07-23-2025 Reticulocyte count [facility] Start: 07-07-2025 Annual PCP Team Chronic Disease Visit Annual PCP Team Chronic Disease Visit [facility] Start: 07-07-2025 Anxiety Screening Anxiety Screening [facility] Comment on above: Postponed from 1963 (Declined at t his time) Start: 07-07-2025 Covid-19 Vaccine () Covid-19 Vaccine () [facility] Comment on above: Postponed from 03/05/2024 (Declined at t his time) Start: 07-07-2025 Creatinine measurement Serum Creatinine [facility] Start: 07-07-2025 Hepatitis B screening Urine Albumin:Creatinine Ratio [facility] Start: 05-10-2025 -[facility] Work Phone: Start: 05-07-2025 End: 05-07-2025 -[facility] Work Phone: Start: 05-03-2025 -[facility] Work Phone: Start: 05-03-2025 End: 05-04-2025 -[facility] Work Phone: Start: 05-02-2025 End: 05-02-2025 -Laboratory Phy Office 3rd Flr Start: 04-26-2025 Glaucoma screening Dilated Retinal Exam [facility] Start: 04-22-2025 Hemoglobin A1c measurement HbA1C [facility] Start: 04-03-2025 Hemoglobin A1c measurement HbA1C [facility] Start: 04-02-2025 Source specific culture [facility] Start: 04-02-2025 Anaerobic microbial culture [facility] Start: 04-02-2025 Gram stain microscopy [facility] Start: 04-02-2025 Microbial culture, routine [facility] Start: 04-02-2025 -Laboratory Phy Office 3rd Flr Start: 03-29-2025 -[facility] Work Phone: Start: 03-27-2025 -[facility] Start: 03-26-2025 End: 03-26-2025 Patient encounter procedure 03/26/2025 10:00 AM EDT Office Visit Cardiology [address] [place] [address] Carla Burdick MD [address] [address] 4 month follow up - ECHO prior Cardiology Comment on above: 4 month follow up - ECHO prior Start: 03-22-2025 [facility] Start: 03-19-2025 End: 03-19-2025 Patient encounter procedure 03/19/2025 1:50 PM EDT Office Visit Cardiology [address] [place] [address] ECHO Cardiology Comment on above: ECHO Start: 03-13-2025 CBC W Auto Differential panel - Blood [facility] Start: 03-13-2025 Comprehensive metabolic 2000 panel - Serum or Plasma [facility] Start: 03-13-2025 Erythropoietin (EPO) [Units/volume] in Serum or Plasma [facility] Start: 03-13-2025 Ferritin [Mass/volume] in Serum or Plasma [facility] Start: 03-13-2025 Iron and Iron binding capacity panel - Serum or Plasma [facility] Start: 03-13-2025 Reticulocyte count [facility] Start: 03-13-2025 Vitamin B12 measurement [facility] Start: 03-13-2025 [facility] Start: 03-05-2025 Influenza vaccination Influenza Vaccine (#1) [facility] Start: 02-27-2025 Urine culture [facility] Start: 02-27-2025 [facility] Start: 02-26-2025 End: 02-26-2025 Patient encounter procedure 02/26/2025 2:20 PM EDT Office Visit Cardiology [address] [place] [address] Carla Burdick MD [address] [address] f/u Cardiology Comment on above: f/u Start: 02-16-2025 End: 02-16-2025 [facility] Start: 02-16-2025 [facility] Start: 02-13-2025 Measurement of C-reactive protein using high sensitivity technique [facility] Start: 02-05-2025 End: 02-05-2025 Evaluation of diagnostic study results [facility] Start: 02-02-2025 Creatinine measurement Serum Creatinine [facility] Start: 02-02-2025 Hepatitis B surface antibody level LDL Cholesterol [facility] Start: 01-23-2025 End: 01-23-2025 Patient encounter procedure 01/23/2025 10:00 AM EDT Office Visit Cardiology [address] [place] [address] Albin Gu APRN.SOCIAL SCIENCE INSTRUCTOR [address] [place] [address] CHF FOLLOW UP Cardiology Comment on above: CHF FOLLOW UP Start: 01-11-2025 Patient discharge [facility] Start: 01-10-2025 End: 01-10-2025 Patient encounter procedure [facility] [place] Comment on above: 6 month follow up (SHABBIR from [place]) 6 month follow up Start: 01-08-2025 Referral to relationship manager [facility] Start: 01-08-2025 End: 01-08-2025 [facility] Start: 01-08-2025 Thyroid stimulating hormone measurement [facility] Start: 01-08-2025 Vital signs measurements [facility] Start: 01-08-2025 Cardiac monitoring [facility] Start: 01-08-2025 Catheterization of vein [facility] Start: 01-08-2025 Consultation [facility] Start: 01-08-2025 Elevation of head of bed [facility] Start: 01-08-2025 Exercises [facility] Start: 01-08-2025 Notification of physician [facility] Start: 01-08-2025 Patient referral to dietitian [facility] Start: 01-08-2025 Referral for physical therapy [facility] Start: 01-08-2025 Referral to occupational therapist [facility] Start: 01-08-2025 Referral to service [facility] Start: 01-08-2025 Speech therapy assessment [facility] Start: 01-08-2025 Tobacco use cessation education [facility] Start: 01-07-2025 Following clinical pathway protocol [facility] Start: 01-07-2025 Assessment of risk of venous thromboembolism [facility] Start: 01-07-2025 Care regimes management [facility] Start: 01-07-2025 Elevation of affected extremity [facility] Start: 01-07-2025 Inhalation therapy procedure [facility] Start: 01-07-2025 Insertion of catheter into peripheral vein [facility] Start: 01-07-2025 Measuring intake and output [facility] Start: 01-07-2025 Notification of physician [facility] Start: 01-07-2025 Patient education [facility] Start: 01-07-2025 Providing care according to standard [facility] Start: 01-07-2025 Provision of activity privileges [facility] Start: 01-07-2025 End: 01-07-2025 [facility] Start: 01-07-2025 Verification routine [facility] Start: 01-07-2025 Admission procedure [facility] Start: 01-07-2025 End: 01-07-2025 [facility] Start: 01-04-2025 Hemoglobin A1c measurement HbA1C [facility] Start: 01-01-2025 End: 04-02-2025 Basic metabolic 2000 panel - Serum or Plasma BASIC METABOLIC PANEL Lab Routine Chronic diastolic (congestive) heart failure (HCC) Expected: 01/01/2025, Expires: 04/02/2025 [facility] Comment on above: Expected: 01/01/2025, Expires: Start: 01-01-2025 End: 04-02-2025 Natriuretic peptide.B prohormone N-Terminal [Mass/volume] in Serum or Plasma NT PRO BNP Lab Routine Chronic diastolic (congestive) heart failure (HCC) Expected: 01/01/2025, Expires: 04/02/2025 [facility] Comment on above: Expected: 01/01/2025, Expires: Start: 01-01-2025 End: 01-01-2025 Patient encounter procedure 01/01/2025 11:00 AM EDT Office Visit Cardiology [address] [place] [address] Carla Burdick MD [address] [address] 1 month follow up Cardiology Comment on above: 1 month follow up Start: 12-21-2024 End: 12-21-2024 Patient encounter procedure 12/21/2024 9:00 AM EDT Office Visit Cardiology [address] [place], [place] [id number] Albin Gu APRN.SOCIAL SCIENCE INSTRUCTOR [address] [place], [place] [id number] CHF Cardiology Comment on above: CHF Start: 12-20-2024 End: 12-20-2024 Patient encounter procedure Vascular Surgery Comment on above: MESENTERIC AND HOSPITAL FOLLOW UP Start: 12-19-2024 End: 03-20-2025 Basic metabolic 2000 panel - Serum or Plasma BASIC METABOLIC PANEL Lab Routine Chronic diastolic congestive heart failure (HCC) Expected: 12/19/2024, Expires: 03/20/2025 [facility] Work Phone: Comment on above: Expected: 12/19/2024, Expires: Start: 12-18-2024 End: 12-18-2024 Patient encounter procedure 12/18/2024 11:00 AM EDT Office Visit Cardiology [address] [place] [address] Albin Gu APRN.SOCIAL SCIENCE INSTRUCTOR [address] [place], [place] [id number] CHF Cardiology Comment on above: CHF Start: 12-11-2024 End: 12-11-2024 Patient encounter procedure 12/11/2024 2:30 PM EDT Office Visit Cardiology [address] [place] [address] Allison Toledo APRN.SOCIAL SCIENCE INSTRUCTOR [address] [facility] [place] [address] follow u Cardiology Comment on above: follow u Start: 12-06-2024 Annual PCP Team Chronic Disease Visit Annual PCP Team Chronic Disease Visit [facility] Start: 12-06-2024 BP Controlled (<130/80) BP Controlled (<130/80) [facility] in Start: 12-04-2024 End: 12-04-2024 Patient encounter procedure 12/04/2024 2:00 PM EDT Office Visit Cardiology [address] [place], [place] [id number] Carla Burdick MD [address] [place] [address] [place] [phone] (Fax) 1 month follow up Cardiology Comment on above: 1 month follow up Start: 12-01-2024 Creatinine measurement Serum Creatinine [facility] Start: 11-21-2024 Annual PCP Team Chronic Disease Visit Annual PCP Team Chronic Disease Visit [facility] Start: 11-21-2024 BP Controlled (<130/80) BP Controlled (<130/80) [facility] Start: 11-21-2024 End: 11-21-2024 Patient encounter procedure 11/21/2024 10:00 AM EDT Office Visit Cardiology [address] [place] [address] Albin Gu, TEXT TRANSCRIBER.SOCIAL SCIENCE INSTRUCTOR [address] [place] [address] CHF Cardiology Comment on above: CHF Start: 11-20-2024 End: 11-20-2024 Patient encounter procedure 11/20/2024 8:00 AM EDT Office Visit Cardiology [address] [place], [place] [id number] Carla Burdick MD [address] [place], [place] [phone] (Fax) follow up with labs per Dr Burdick's phone note Cardiology Comment on above: follow up with labs per Dr Burdick's da ne note Start: 11-18-2024 Complete blood count Hemoglobin/Hematocrit [facility] Start: 11-18-2024 Creatinine measurement Serum Creatinine [facility] Start: 11-15-2024 End: 02-14-2025 Basic metabolic 2000 panel - Serum or Plasma BASIC METABOLIC PANEL Lab Routine Dyspnea on exertion Chronic diastolic congestive heart failure (HCC) Expected: 11/15/2024, Expires: 02/14/2025 [facility] Work Phone: Comment on above: Expected: 11/15/2024, Expires: Start: 11-15-2024 End: 02-14-2025 Natriuretic peptide.B prohormone N-Terminal [Mass/volume] in Serum or Plasma NT PRO BNP Lab Routine Dyspnea on exertion Chronic diastolic congestive heart failure (HCC) Expected: 11/15/2024, Expires: 02/14/2025 [facility] Comment on above: Expected: 11/15/2024, Expires: Start: 11-15-2024 End: 11-15-2024 ambulatory 11/15/2024 9:00 AM EDT OT/PT/Speech Visit [facility] Physical Therapy [address] [place], [place] [id number] Frank Null, PT [address] [place], [place] [id number] Physical deconditioning [R53.81] [facility] Comment on above: Physical deconditioning [R53.81] Start: 11-11-2024 Complete blood count Hemoglobin/Hematocrit [facility] Start: 11-11-2024 Creatinine measurement Serum Creatinine [facility] Start: 11-09-2024 Complete blood count Hemoglobin/Hematocrit [facility] Start: 11-09-2024 Creatinine measurement Serum Creatinine [facility] Start: 11-07-2024 End: 11-07-2024 ambulatory 11/07/2024 10:45 AM EDT OT/PT/Speech Visit [facility] OCCUPATIONAL THERAPY [address] [place] [address] Adriana Wilson, OTR/L [address] [address] Physical deconditioning [R53.81] [facility]CCUPATIONAL [facility]Y Comment on above: Physical deconditioning [R53.81] Start: 11-06-2024 End: 11-06-2024 Patient encounter procedure 11/06/2024 2:40 PM EDT Office Visit Cardiology [address] [place] [address] Carla Burdick MD [address] [place] [address] hospital f/u - acute on chronic CHF Cardiology Comment on above: hospital f/u - acute on chronic CHF Start: 11-06-2024 End: 02-05-2025 Basic metabolic 2000 panel - Serum or Plasma BASIC METABOLIC PANEL Lab Routine Chronic diastolic (congestive) heart failure (HCC) Expected: 11/06/2024, Expires: 02/05/2025 [facility] Work Phone: Comment on above: Expected: 11/06/2024, Expires: Start: 11-06-2024 End: 02-05-2025 Natriuretic peptide.B prohormone N-Terminal [Mass/volume] in Serum or Plasma NT PRO BNP Lab Routine Chronic diastolic (congestive) heart failure (HCC) Expected: 11/06/2024, Expires: 02/05/2025 [facility] Comment on above: Expected: 11/06/2024, Expires: Start: 11-03-2024 Annual PCP Team Chronic Disease Visit Annual PCP Team Chronic Disease Visit [facility] Start: 11-03-2024 End: 02-02-2025 Basic metabolic 2000 panel - Serum or Plasma BASIC METABOLIC PANEL Lab Routine Chronic diastolic congestive heart failure (HCC) Expected: 11/03/2024, Expires: 02/02/2025 [facility] Work Phone: Comment on above: Expected: 11/03/2024, Expires: Start: 10-31-2024 Complete blood count Hemoglobin/Hematocrit [facility] Start: 10-31-2024 Creatinine measurement Serum Creatinine [facility] Start: 10-26-2024 End: 10-26-2024 Patient encounter procedure 10/26/2024 9:00 AM EDT Office Visit Cardiology [address] [place] [address] Albin Gu, TERI.SOCIAL SCIENCE INSTRUCTOR [address] [place] [address] I50.32 I10 I49.5 I48.11 Cardiology Comment on above: I50.32 I10 I49.5 I48.11 Start: 10-25-2024 End: 10-25-2024 Patient encounter procedure 10/25/2024 1:30 PM EDT Office Visit Vasculary Surgery [address] [place], [place] [phone] Bilateral carotid artery stenosis [I65.23] [facility] Comment on above: Bilateral carotid artery stenosis [I65.2 3] Start: 10-24-2024 End: 10-24-2024 Patient encounter procedure 10/24/2024 11:00 AM EDT Office Visit Cardiology [address] [place] [address] Albin Gu, TEXT TRANSCRIBER.SOCIAL SCIENCE INSTRUCTOR [address] [place] [address] CHF Cardiology Comment on above: CHF Start: 10-23-2024 End: 10-23-2024 Patient encounter procedure 10/23/2024 2:00 PM EDT Office Visit [facility] [address] [place], [place] [phone] Deysi Collazo, TERI.SOCIAL SCIENCE INSTRUCTOR [address] [place] [address] Post hospital visit [facility] Comment on above: Post hospital visit Start: 10-17-2024 Annual PCP Team Chronic Disease Visit Annual PCP Team Chronic Disease Visit [facility] Start: 10-17-2024 End: 10-17-2024 Patient encounter procedure Cardiology Comment on above: medtr[employer] ep eval [employer] Start: 10-15-2024 Creatinine measurement Serum Creatinine [facility] Start: 07-05-2024 Advance Directive Discussion Advance Directive Discussion [facility] Start: 07-05-2024 Medicare Advantage Annual Wellness Visit Medicare [facility] Annual Wellness Visit [facility] Start: 06-01-2024 Annual PCP Team Chronic Disease Visit Annual PCP Team Chronic Disease Visit [facility] Start: 06-01-2024 BP Controlled (<130/80) BP Controlled (<130/80) [facility] in Start: 04-16-2024 Glaucoma screening Dilated Retinal Exam [facility] Start: 04-16-2024 Hepatitis C antibody, confirmatory test Dilated Retinal Exam [facility] Start: 04-12-2024 Annual PCP Team Chronic Disease Visit Annual PCP Team Chronic Disease Visit [facility] Start: 04-12-2024 Covid-19 Vaccine () Covid-19 Vaccine () [facility] Comment on above: Postponed from 03/05/2023 (Declined at t his time) Start: 04-12-2024 Shingrix Vaccine (2 of 2) Shingrix Vaccine (2 of 2) [facility] Comment on above: Postponed from 01/03/2019 (Insurance Cov erage) Start: 04-07-2024 Complete blood count Hemoglobin/Hematocrit [facility] Start: 04-07-2024 Creatinine measurement Serum Creatinine [facility] Start: 04-07-2024 Hemoglobin/Hematocrit Hemoglobin/Hematocrit [facility] Start: 04-07-2024 Hepatitis B screening Urine Albumin:Creatinine Ratio [facility] Start: 04-07-2024 Hepatitis B surface antibody level LDL Cholesterol [facility] Start: 04-07-2024 Serum Creatinine Serum Creatinine [facility] Start: 04-07-2024 End: 04-07-2024 Patient encounter procedure 04/07/2024 9:00 AM EDT Office Visit Cardiology [address] [place] [address] Albin Gu APRN.SOCIAL SCIENCE INSTRUCTOR [address] [place] [address] I50.32 I10 I49.5 I48.11 I50.21 Cardiology Comment on above: I50.32 I10 I49.5 I48.11 I50.21 Start: 04-06-2024 End: 04-06-2024 Patient encounter procedure 04/06/2024 9:00 AM EDT Office Visit Cardiology [address] [place] [address] Albin Gu APRN.SOCIAL SCIENCE INSTRUCTOR [address] [place] [address] I50.32 I10 I49.5 I48.11 I50.21 Cardiology Comment on above: I50.32 I10 I49.5 I48.11 I50.21 Start: 03-05-2024 Covid-19 Vaccine ( season) Covid-19 Vaccine () [facility] Start: 03-05-2024 Covid-19 Vaccine () Covid-19 Vaccine () [facility] Start: 03-05-2024 Influenza vaccination Influenza Vaccine (#1) [facility] Start: 02-07-2024 End: 05-08-2024 Basic metabolic 2000 panel - Serum or Plasma BASIC METABOLIC PANEL Lab Routine Chronic kidney disease, unspecified CKD stage Expected: 02/07/2024, Expires: 05/08/2024 [facility] Work Phone: Comment on above: Expected: 02/07/2024, Expires: Start: 02-07-2024 End: 05-08-2024 Natriuretic peptide.B prohormone N-Terminal [Mass/volume] in Serum or Plasma NT PRO BNP Lab Routine Chronic diastolic congestive heart failure (HCC) Expected: 02/07/2024, Expires: 05/08/2024 [facility] Work Phone: Comment on above: Expected: 02/07/2024, Expires: 4 Start: 02-07-2024 End: 02-07-2024 Patient encounter procedure 02/07/2024 8:00 AM EDT Office Visit [facility] [place] [address] [place] [address] Gerard Le PA-C [address] [place] [address] 3 month follow up [facility] [place] Comment on above: 3 month follow up Start: 01-17-2024 End: 04-17-2024 Comprehensive metabolic 2000 panel - Serum or Plasma COMPREHENSIVE METABOLIC PANEL Lab Routine Chronic diastolic (congestive) heart failure (HCC) Expected: 01/17/2024, Expires: 04/17/2024 [facility] Comment on above: Expected: 01/17/2024, Expires: Start: 01-17-2024 End: 04-17-2024 Lipid 1996 panel - Serum or Plasma LIPID PANEL BASIC Lab Routine Hyperlipidemia with target LDL less than 70 Expected: 01/17/2024, Expires: 04/17/2024 [facility] Work Phone: Comment on above: Expected: 01/17/2024, Expires: Start: 01-17-2024 End: 04-17-2024 Natriuretic peptide.B prohormone N-Terminal [Mass/volume] in Serum or Plasma NT PRO BNP Lab Routine Chronic diastolic (congestive) heart failure (HCC) Expected: 01/17/2024, Expires: 04/17/2024 [facility] Comment on above: Expected: 01/17/2024, Expires: Start: 01-17-2024 End: 01-17-2024 Patient encounter procedure 01/17/2024 9:20 AM EDT Office Visit Cardiology [address] [place] [address] Carla Burdick MD [address] [address] 6 month follow up Cardiology Comment on above: 6 month follow up Start: 01-09-2024 Urine microalbumin profile [facility] Start: 01-08-2024 ANNUAL PCP TEAM CHRONIC DISEASE VISIT ANNUAL PCP TEAM CHRONIC DISEASE VISIT [facility] Start: 12-02-2023 End: 03-02-2024 CBC W Auto Differential panel - Blood COMPLETE BLOOD COUNT AND DIFFERENTIAL Lab Routine Borderline anemia Acute systolic congestive heart failure (HCC) Expected: 12/02/2023, Expires: 03/02/2024 [facility] Work Phone: Comment on above: Expected: 12/02/2023, Expires: Start: 12-02-2023 End: 03-02-2024 Iron and Iron binding capacity panel - Serum or Plasma IRON AND TIBC Lab Routine Borderline anemia Expected: 12/02/2023, Expires: 03/02/2024 [facility] Comment on above: Expected: 12/02/2023, Expires: Start: 11-30-2023 End: 11-30-2023 Patient encounter procedure 11/30/2023 11:00 AM EDT Office Visit Cardiology [address] [place] [address] Albin Gu APRN.SOCIAL SCIENCE INSTRUCTOR [address] [place], [place] [id number] NEW CHF/post hospitalization Cardiology Comment on above: NEW CHF/post hospitalization Start: 11-25-2023 End: 02-24-2024 Basic metabolic 2000 panel - Serum or Plasma BASIC METABOLIC PANEL Lab Routine Chronic diastolic congestive heart failure (HCC) Expected: 11/25/2023, Expires: 02/24/2024 [facility] Work Phone: Comment on above: Expected: 11/25/2023, Expires: Start: 11-25-2023 End: 11-25-2023 Patient encounter procedure 11/25/2023 10:00 AM EDT Office Visit Cardiology [address] [place], [place] [id number] Albin Gu APRN.SOCIAL SCIENCE INSTRUCTOR [address] [place], [place] [id number] NEW CHF/post hospitalization Cardiology Comment on above: NEW CHF/post hospitalization Start: 11-24-2023 End: 11-24-2023 ambulatory 11/24/2023 11:00 AM EDT Visit (SP) Office Hematology/Oncology [address] [place] [address] [place] [address] [place] [address] 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] Hematology/Oncology Comment on above: Iron deficiency anemia secondary to inad equate dietary iron intake [D50.8] Start: 11-22-2023 End: 02-21-2024 Renal function 2000 panel - Serum or Plasma RENAL FUNCTION PANEL Lab Routine Hyponatremia Hypokalemia Expected: 11/22/2023, Expires: 02/21/2024 [facility] Work Phone: Comment on above: Expected: 11/22/2023, Expires: 4 Start: 11-22-2023 End: 11-22-2023 Patient encounter procedure 11/22/2023 9:00 AM EDT Office Visit [facility] [address] [place], [place] [id number] Deysi Collazo, TEXT TRANSCRIBER.SOCIAL SCIENCE INSTRUCTOR [address], [place] [id number] [facility] Follow up [facility] Comment on above: [facility] Follow up Start: 11-12-2023 End: 02-11-2024 Basic metabolic 2000 panel - Serum or Plasma BASIC METABOLIC PANEL Lab Routine Stage 3 chronic kidney disease, unspecified whether stage 3a or 3b CKD (HCC) Expected: 11/12/2023, Expires: 02/11/2024 [facility] Work Phone: Comment on above: Expected: 11/12/2023, Expires: 4 Start: 11-09-2023 End: 11-09-2023 Patient encounter procedure Vasculary Surgery Comment on above: Carotid artery stenosis, asymptomatic, b ilateral [I65.23] PVD (peripheral vasc ular disease) with claudication (HCC) [I73.9] follow up after test ing Start: 11-08-2023 End: 11-08-2023 Patient encounter procedure 11/08/2023 4:30 PM EDT Office Visit Cardiology [address] [place] [address] Bere Boykin, TEXT TRANSCRIBER.SOCIAL SCIENCE INSTRUCTOR [address] [place] [address] Follow up Cardiology Comment on above: Follow up Start: 11-04-2023 End: 11-04-2023 Patient encounter procedure 11/04/2023 8:00 AM EDT Office Visit [facility] [place] [address] [place] [address] Gerard Le PA-C [address] [place] [address] 6 mo follow up [facility] [place] Comment on above: 6 mo follow up Start: 11-02-2023 End: 02-01-2024 Basic metabolic 2000 panel - Serum or Plasma BASIC METABOLIC PANEL Lab Routine Acute systolic congestive heart failure (HCC) Expected: 11/02/2023, Expires: 02/01/2024 [facility] Comment on above: Expected: 11/02/2023, Expires: Start: 10-18-2023 End: 01-17-2024 25-hydroxyvitamin D3 [Mass/volume] in Serum or Plasma VITAMIN D 25 HYDROXY Lab Routine Vitamin D deficiency Expected: 10/18/2023, Expires: 01/17/2024 [facility] Work Phone: Comment on above: Expected: 10/18/2023, Expires: Start: 10-18-2023 End: 01-17-2024 Basic metabolic 2000 panel - Serum or Plasma BASIC METABOLIC PANEL Lab Routine Acute systolic CHF (congestive heart failure) (HCC) Expected: 10/18/2023, Expires: 01/17/2024 [facility] Work Phone: Comment on above: Expected: 10/18/2023, Expires: Start: 10-18-2023 End: 01-17-2024 CBC panel - Blood by Automated count COMPLETE BLOOD COUNT Lab Routine Acute systolic CHF (congestive heart failure) (HCC) Expected: 10/18/2023, Expires: 01/17/2024 [facility] Work Phone: Comment on above: Expected: 10/18/2023, Expires: Start: 10-18-2023 End: 01-17-2024 Natriuretic peptide.B prohormone N-Terminal [Mass/volume] in Serum or Plasma NT PRO BNP Lab Routine Acute systolic CHF (congestive heart failure) (HCC) Expected: 10/18/2023, Expires: 01/17/2024 [facility] Work Phone: Comment on above: Expected: 10/18/2023, Expires: 4 Start: 10-15-2023 End: 01-14-2024 Basic metabolic 2000 panel - Serum or Plasma BASIC METABOLIC PANEL Lab Routine 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) Dilated cardiomyopathy (HCC) Expected: 10/15/2023, Expires: 01/14/2024 [facility] Work Phone: Comment on above: Expected: 10/15/2023, Expires: Start: 10-15-2023 End: 01-14-2024 Natriuretic peptide.B prohormone N-Terminal [Mass/volume] in Serum or Plasma NT PRO BNP Lab Routine 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) Dilated cardiomyopathy (HCC) Expected: 10/15/2023, Expires: 01/14/2024 [facility] Work Phone: Comment on above: Expected: 10/15/2023, Expires: Start: 10-07-2023 ANNUAL PCP TEAM CHRONIC DISEASE VISIT ANNUAL PCP TEAM CHRONIC DISEASE VISIT [facility] Start: 10-07-2023 Hemoglobin A1c measurement HbA1C [facility] Start: 10-07-2023 Hemoglobin A1c/Hemoglobin.total in Blood HbA1C [facility] Start: 10-06-2023 HEMOGLOBIN/HEMATOCRIT HEMOGLOBIN/HEMATOCRIT [facility] Start: 10-06-2023 Hepatitis B surface antibody level LDL CHOLESTEROL [facility] Start: 10-06-2023 SERUM CREATININE SERUM CREATININE [facility] Start: 09-29-2023 BP CONTROLLED (<130/80) BP CONTROLLED (<130/80) [facility] Start: 07-07-2023 ANNUAL PCP TEAM CHRONIC DISEASE VISIT ANNUAL PCP TEAM CHRONIC DISEASE VISIT [facility] Start: 07-05-2023 Advance Directive Discussion Advance Directive Discussion [facility] Start: 07-05-2023 Behavioral Health Screening Behavioral Health Screening [facility] Start: 07-05-2023 Depression Assessment Depression Assessment [facility] Start: 07-03-2023 Hemoglobin A1c/Hemoglobin.total in Blood HBA1C [facility] Start: 05-14-2023 HEMOGLOBIN/HEMATOCRIT HEMOGLOBIN/HEMATOCRIT [facility] Start: 05-14-2023 SERUM CREATININE SERUM CREATININE [facility] Start: 04-15-2023 HEMOGLOBIN/HEMATOCRIT HEMOGLOBIN/HEMATOCRIT [facility] Start: 04-14-2023 Hepatitis C antibody, confirmatory test DILATED RETINAL EXAM [facility] Start: 04-07-2023 End: 06-07-2023 ALBUMIN/CREAT RATIO RND UR ALBUMIN/CREAT RATIO RND UR Lab Routine Type 2 diabetes mellitus with diabetic peripheral angiopathy without gangrene, without long-term current use of insulin (HCC) Expected: 04/07/2023, Expires: 06/07/2023 [facility] Work Phone: Comment on above: Expected: 04/07/2023, Expires: 3 Start: 04-07-2023 End: 06-07-2023 CBC W Auto Differential panel - Blood CBC + DIFF Lab Routine Primary hypertension Gastroesophageal reflux disease without esophagitis Chronic renal failure, stage 3b (HCC) Expected: 04/07/2023, Expires: 06/07/2023 [facility] Work Phone: Comment on above: Expected: [...] of insulin (HCC) Expected: 04/07/2023, Expires: 06/07/2023 [facility] Work Phone: Comment on above: Expected: 04/07/2023, Expires: 3 Start: 04-07-2023 End: 06-07-2023 Ferritin [Mass/volume] in Serum or Plasma FERRITIN BLD Lab Routine Iron 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 Expected: 04/07/2023, Expires: 06/07/2023 [facility] Work Phone: Comment on above: Expected: 04/07/2023, Expires: 3 Start: 04-07-2023 End: 06-07-2023 Hemoglobin A1c in Blood HGB A1C Lab Routine Type 2 diabetes mellitus with diabetic peripheral angiopathy without gangrene, without long-term current use of insulin (HCC) Expected: 04/07/2023, Expires: 06/07/2023 [facility] Work Phone: Comment on above: Expected: 04/07/2023, Expires: 3 Start: 04-07-2023 End: 06-07-2023 Iron and Iron binding capacity panel - Serum or Plasma IRON + TIBC Lab Routine 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 Expected: 04/07/2023, Expires: 06/07/2023 [facility] Work Phone: Comment on above: Expected: 04/07/2023, Expires: 3 Start: 04-07-2023 End: 06-07-2023 Lipid 1996 panel - Serum or Plasma LIPID PANEL BASIC Lab Routine Hyperlipidemia with target LDL less than 70 Expected: 04/07/2023, Expires: 06/07/2023 [facility] Work Phone: Comment on above: Expected: 04/07/2023, Expires: 3 Start: 04-06-2023 3 comp foot exam completed DIABETIC FOOT EXAM [facility] Start: 04-06-2023 ANNUAL PCP TEAM CHRONIC DISEASE VISIT ANNUAL PCP TEAM CHRONIC DISEASE VISIT [facility] Start: 04-06-2023 Diabetic foot examination Diabetic Foot Exam [facility] Start: 04-06-2023 HEMOGLOBIN/HEMATOCRIT HEMOGLOBIN/HEMATOCRIT [facility] Start: 04-06-2023 SERUM CREATININE SERUM CREATININE [facility] Start: 03-22-2023 HEMOGLOBIN/HEMATOCRIT HEMOGLOBIN/HEMATOCRIT [facility] Start: 03-22-2023 SERUM CREATININE SERUM CREATININE [facility] Start: 03-21-2023 HEMOGLOBIN/HEMATOCRIT HEMOGLOBIN/HEMATOCRIT [facility] Start: 03-21-2023 SERUM CREATININE SERUM CREATININE [facility] Start: 03-20-2023 HEMOGLOBIN/HEMATOCRIT HEMOGLOBIN/HEMATOCRIT [facility] Start: 03-20-2023 SERUM CREATININE SERUM CREATININE [facility] Start: 03-19-2023 ANNUAL PCP TEAM CHRONIC DISEASE VISIT ANNUAL PCP TEAM CHRONIC DISEASE VISIT [facility] Start: 03-19-2023 HEMOGLOBIN/HEMATOCRIT HEMOGLOBIN/HEMATOCRIT [facility] Start: 03-19-2023 SERUM CREATININE SERUM CREATININE [facility] Start: 03-05-2023 End: 09-29-2023 Echocardiography ECHO Cardiology Routine History of prosthetic aortic valve replacement H/O rheumatic heart disease Expected: 03/05/2023, Expires: 09/29/2023 [facility] Work Phone: Comment on above: Expected: 03/05/2023, Expires: Start: 03-05-2023 Influenza vaccination [facility] Start: 02-27-2023 HEMOGLOBIN/HEMATOCRIT HEMOGLOBIN/HEMATOCRIT [facility] Start: 02-27-2023 SERUM CREATININE SERUM CREATININE [facility] Start: 02-24-2023 HEMOGLOBIN/HEMATOCRIT HEMOGLOBIN/HEMATOCRIT [facility] Start: 02-24-2023 SERUM CREATININE SERUM CREATININE [facility] Start: 02-23-2023 HEMOGLOBIN/HEMATOCRIT HEMOGLOBIN/HEMATOCRIT [facility] Start: 02-22-2023 SERUM CREATININE SERUM CREATININE [facility] Start: 02-20-2023 ANNUAL PCP TEAM CHRONIC DISEASE VISIT ANNUAL PCP TEAM CHRONIC DISEASE VISIT [facility] Start: 02-17-2023 HEMOGLOBIN/HEMATOCRIT HEMOGLOBIN/HEMATOCRIT [facility] Start: 01-16-2023 ANNUAL PCP TEAM CHRONIC DISEASE VISIT ANNUAL PCP TEAM CHRONIC DISEASE VISIT [facility] Start: 01-09-2023 HEMOGLOBIN/HEMATOCRIT HEMOGLOBIN/HEMATOCRIT [facility] Start: 01-09-2023 SERUM CREATININE SERUM CREATININE [facility] Start: 01-01-2023 BP CONTROLLED (<130/80) BP CONTROLLED (<130/80) [facility] Start: 12-29-2022 HEMOGLOBIN/HEMATOCRIT HEMOGLOBIN/HEMATOCRIT [facility] Start: 12-26-2022 HEMOGLOBIN/HEMATOCRIT HEMOGLOBIN/HEMATOCRIT [facility] Start: 12-16-2022 Hepatitis B screening URINE ALBUMIN:CREATININE RATIO [facility] Start: 12-15-2022 Adult depression screening assessment DEPRESSION SCREENING [facility] Start: 12-15-2022 ANNUAL PCP TEAM CHRONIC DISEASE VISIT ANNUAL PCP TEAM CHRONIC DISEASE VISIT [facility] Start: 12-15-2022 BP CONTROLLED (<130/80) BP CONTROLLED (<130/80) [facility] Start: 12-15-2022 HEMOGLOBIN/HEMATOCRIT HEMOGLOBIN/HEMATOCRIT [facility] Start: 12-15-2022 Hepatitis B surface antibody level LDL CHOLESTEROL [facility] Start: 12-03-2022 DEPRESSION ASSESSMENT DEPRESSION ASSESSMENT [facility] Comment on above: Postponed from 07/05/2022 (Declined at t his time) Start: 11-28-2022 HEMOGLOBIN/HEMATOCRIT HEMOGLOBIN/HEMATOCRIT [facility] Start: 11-28-2022 SERUM CREATININE SERUM CREATININE [facility] Start: 10-06-2022 End: 12-06-2022 Iron and Iron binding capacity panel - Serum or Plasma IRON + TIBC Lab Routine Iron malabsorption Expected: 10/06/2022, Expires: 12/06/2022 [facility] Work Phone: Comment on above: Expected: [...] of insulin (HCC) Expected: 10/05/2022, Expires: 12/05/2022 [facility] Work Phone: Comment on above: Expected: 10/05/2022, Expires: 3 Start: 10-05-2022 End: 12-05-2022 Comprehensive metabolic 2000 panel - Serum or Plasma COMP METABOLIC PANEL Lab Routine Atrial fibrillation, unspecified type (HCC) Hyperlipidemia with target LDL less than 70 Expected: 10/05/2022, Expires: 12/05/2022 [facility] Work Phone: Comment on above: Expected: 10/05/2022, Expires: 3 Start: 09-28-2022 End: 11-28-2022 Lipid 1996 panel - Serum or Plasma LIPID PANEL BASIC Lab Routine Hyperlipidemia with target LDL less than 70 Expected: 09/28/2022, Expires: 11/28/2022 [facility] Work Phone: Comment on above: Expected: 09/28/2022, Expires: 3 Start: 09-17-2022 Hemoglobin A1c/Hemoglobin.total in Blood HBA1C [facility] Start: 09-16-2022 ANNUAL PCP TEAM CHRONIC DISEASE VISIT ANNUAL PCP TEAM CHRONIC DISEASE VISIT [facility] Start: 09-16-2022 BP CONTROLLED (<130/80) BP CONTROLLED (<130/80) [facility] Start: 09-16-2022 SHINGRIX VACCINE (2 of 2) SHINGRIX VACCINE (2 of 2) [facility] Comment on above: Postponed from 01/03/2019 (Insurance Cov erage) Start: 09-13-2022 HEMOGLOBIN/HEMATOCRIT HEMOGLOBIN/HEMATOCRIT [facility] Start: 09-02-2022 End: 05-09-2023 US KIDNEY/BLADDER US KIDNEY/BLADDER Radiology Routine Neoplasm of uncertain behavior of right kidney Expected: 09/02/2022, Expires: 05/09/2023 [facility] Work Phone: Comment on above: Expected: 09/02/2022, Expires: 3 Start: 07-07-2022 End: 05-06-2023 Ct thorax w/o contrast material CT CHEST WO IVCON Radiology Routine Lung nodule, solitary Expected: 07/07/2022, Expires: 05/06/2023 [facility] Work Phone: Comment on above: Expected: 07/07/2022, Expires: 3 Start: 07-05-2022 ADVANCE DIRECTIVE DISCUSSION ADVANCE DIRECTIVE DISCUSSION [facility] Start: 07-05-2022 DEPRESSION ASSESSMENT DEPRESSION ASSESSMENT [facility] Start: 06-16-2022 Hemoglobin A1c/Hemoglobin.total in Blood HBA1C [facility] Start: 06-02-2022 SERUM CREATININE SERUM CREATININE [facility] Start: 05-07-2022 End: 07-07-2022 Basic metabolic 2000 panel - Serum or Plasma BASIC METABOLIC PNL Lab Routine Stage 3b chronic kidney disease (HCC) Iron deficiency anemia due to chronic blood loss Expected: 05/07/2022, Expires: 07/07/2022 [facility] Work Phone: Comment on above: Expected: 05/07/2022, Expires: 3 Start: 05-07-2022 End: 07-07-2022 CBC panel - Blood by Automated count CBC Lab Routine Stage 3b chronic kidney disease (HCC) Iron deficiency anemia due to chronic blood loss Expected: 05/07/2022, Expires: 07/07/2022 [facility] Work Phone: Comment on above: Expected: 05/07/2022, Expires: 3 Start: 03-30-2022 End: 05-30-2022 Basic metabolic 2000 panel - Serum or Plasma BASIC METABOLIC PNL Lab Routine Primary hypertension Expected: 03/30/2022, Expires: 05/30/2022 [facility] Work Phone: Comment on above: Expected: 03/30/2022, Expires: 2 Start: 03-05-2022 Influenza vaccination INFLUENZA (#1) [facility] Start: 02-20-2022 End: 04-22-2022 Basic metabolic 2000 panel - Serum or Plasma [facility] Work Phone: Comment on above: Expected: 02/20/2022, Expires: 2 Start: 02-19-2022 Hepatitis C antibody, confirmatory test DILATED RETINAL EXAM [facility] Start: 01-21-2022 End: 01-21-2023 SARS-CoV-2 (COVID-19) RNA [Presence] in Respiratory specimen by RANDOLPH with probe detection PRE-PROCEDURE & PRE-OPERATIVE COVID Microbiology Routine Paroxysmal atrial fibrillation (HCC) Expected: 01/21/2022, Expires: 01/21/2023 [facility] Work Phone: Comment on above: Expected: 01/21/2022, Expires: 3 Start: 12-30-2021 Administration of blood product [facility] Work Phone: Start: 12-30-2021 [facility] Work Phone: Start: 12-27-2021 End: 02-26-2022 CBC W Auto Differential panel - Blood CBC + DIFF Lab Routine Anemia, unspecified type Expected: 12/27/2021, Expires: 02/26/2022 [facility] Work Phone: Comment on above: Expected: 12/27/2021, Expires: 2 Start: 12-27-2021 End: 02-26-2022 Iron and Iron binding capacity panel - Serum or Plasma IRON + TIBC Lab Routine Anemia, unspecified type Expected: 12/27/2021, Expires: 02/26/2022 [facility] Work Phone: Comment on above: Expected: 12/27/2021, Expires: 2 Start: 12-15-2021 End: 02-14-2022 ALBUMIN/CREAT RATIO RND UR ALBUMIN/CREAT RATIO RND UR Lab Routine Type 2 diabetes mellitus with diabetic peripheral angiopathy without gangrene, without long-term current use of insulin (HCC) Expected: 12/15/2021, Expires: 02/14/2022 [facility] Work Phone: Comment on above: Expected: 12/15/2021, Expires: 2 Start: 12-11-2021 Hepatitis B surface antibody level LDL CHOLESTEROL [facility] Start: 11-26-2021 End: 01-26-2022 CBC panel - Blood by Automated count CBC Lab Routine PAD (peripheral artery disease) (HCC) Anemia due to chronic illness Expected: 11/26/2021, Expires: 01/26/2022 [facility] Work Phone: Comment on above: Expected: 11/26/2021, Expires: 2 Start: 11-26-2021 End: 01-26-2022 Renal function 2000 panel - Serum or Plasma RENAL FUNCTION PANEL Lab Routine PAD (peripheral artery disease) (HCC) Expected: 11/26/2021, Expires: 01/26/2022 [facility] Work Phone: Comment on above: Expected: 11/26/2021, Expires: 2 Start: 07-13-2021 COVID-19 VACCINE (4 - Booster for Pfizer series) COVID-19 VACCINE (4 - Booster for Pfizer series) [facility] Start: 07-12-2021 Hepatitis B screening URINE ALBUMIN:CREATININE RATIO [facility] Start: 07-05-2021 ADVANCE DIRECTIVE DISCUSSION ADVANCE DIRECTIVE DISCUSSION [facility] Start: 07-05-2021 DEPRESSION ASSESSMENT DEPRESSION ASSESSMENT [facility] Start: 06-12-2021 Hemoglobin A1c/Hemoglobin.total in Blood HBA1C [facility] Start: 05-08-2021 COVID-19 VACCINE (4 - Booster for Pfizer series) COVID-19 VACCINE (4 - Booster for Pfizer series) [facility] Start: 05-08-2021 COVID-19 VACCINE (4 - Pfizer series) COVID-19 VACCINE (4 - Pfizer series) [facility] Start: 2020 RSV Vaccine (1 - 1-dose 75+ series) RSV Vaccine (1 - 1-dose 75+ series) [facility] Start: 07-18-2020 Adult depression screening assessment DEPRESSION SCREENING [facility] Start: 05-25-2019 End: 05-25-2019 Office Visit 05/25/2019 Office Visit Cardiovascular Medicine Mars Chung, DO [address] [place] [address] [facility] Start: 03-05-2019 Influenza vaccination INFLUENZA VACCINE (#1) [facility] [facility] Start: 01-03-2019 SHINGRIX VACCINE (2 of 2) SHINGRIX VACCINE (2 of 2) [facility] Start: 01-08-2015 3 comp foot exam completed DIABETIC FOOT EXAM [facility] Start: 2010 Pneumococcal vaccination PNEUMOCOCCAL VACCINE SERIES (1 of 2 - PCV13) [facility] Start: 2005 Hepatitis B Vaccine (1 of 3 - Risk 3-dose series) Hepatitis B Vaccine (1 of 3 - Risk 3-dose series) [facility] Start: 2005 RSV Vaccine (1 - 1-dose 60+ series) RSV Vaccine (1 - 1-dose 60+ series) [facility] Start: 1995 Colonoscopy COLON CANCER SCREENING DISCUSSION [facility] Start: 1995 Zoster vaccine hzv live for subcutaneous use ZOSTER (SHINGLES) VACCINE (1 of 2) [facility] Start: 1985 Fasting lipid profile LIPID SCREENING [facility] Start: 1985 Screening mammography MAMMOGRAM SCREENING DISCUSSION [facility] Start: 1966 Screening for malignant neoplasm of cervix PAP SMEAR DISCUSSION [facility] Start: 1964 Third diphtheria, tetanus and acellular pertussis (DTaP) vaccination TDAP (ADULT) [facility] Start: 1963 Anxiety Screening Anxiety Screening [facility] Start: 1963 BP CONTROLLED (<130/80) BP CONTROLLED (<130/80) [facility] Start: 1963 Depression Screening Depression Screening [facility] Start: 1963 Tetanus vaccination TETANUS [facility] Start: 1945 Hepatitis C antibody, confirmatory test HEPATITIS C VIRUS SCREENING [facility] Start: 1945 Potassium [Moles/Vol] POTASSIUM [facility] Start: 1945 Screening for osteoporosis DEXA SCAN DISCUSSION [facility] Alanine aminotransfe rase [Enzymatic activity/volume] in Serum or Plasma [facility] Albumin [Mass/volume ] in Serum or Plasma [facility] Alkaline phosphatase [Enzymatic activity/volume] in Serum or Plasma [facility] Anion gap in Serum o r Plasma [facility] Anion gap in Serum o r Plasma [facility] Bacteria identified in Unspecified specimen by Anaerobe culture [facility] Basic metabolic 2008 panel with ionized calcium - Serum or Plasma [facility] Bilirubin, total measurement [facility] BUN/Creatinine ratio [facility] BUN/Creatinine ratio [facility] Calcium [Mass/volume ] in Serum or Plasma [facility] Calcium [Mass/volume ] in Serum or Plasma [facility] Carbon dioxide, tota l [Moles/volume] in Central venous blood [facility] Carbon dioxide, tota l [Moles/volume] in Central venous blood [facility] CBC W Auto Different ial panel - Blood [facility] Cholesterol [Mass/vo lume] in Serum or Plasma [facility] Cholesterol in HDL [Mass/volume] in Serum or Plasma [facility] COVID & INFLUENZA A/ B & RSV NAAT, ROUTINE COVID & INFLUENZA A/B & RSV NAAT, ROUTINE Microbiology Routine Influenza-like illness Ordered: 07/05/2023 [facility] Work Phone: Comment on above: Ordered: 07/05/2023 Creatinine [Mass/vol ume] in Serum or Plasma [facility] Creatinine [Mass/vol ume] in Serum or Plasma [facility] End: 01-21-2023 ECG COMPLETE ECG COMPLETE ECG Routine Paroxysmal atrial fibrillation (HCC) 1 Occurrences starting 01/21/2022 until 01/21/2023 [facility] Work Phone: Comment on above: 1 Occurrences starting 01/21/2022 until 01/21/2023 End: 02-09-2023 ECG COMPLETE ECG COMPLETE ECG Routine Paroxysmal atrial fibrillation (HCC) Presence of Watchman left atrial appendage closure device 1 Occurrences starting 02/09/2022 until 02/09/2023 [facility] Work Phone: Comment on above: 1 Occurrences starting 02/09/2022 until 02/09/2023 End: 03-19-2023 ECG COMPLETE ECG COMPLETE ECG Routine Aortic prosthetic valve regurgitation, 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) 1 Occurrences starting 03/19/2022 until 03/19/2023 [facility] Work Phone: Comment on above: 1 Occurrences starting 03/19/2022 until 03/19/2023 ECG COMPLETE ECG COMPLETE ECG 03/19/2022 11:04 AM EDT [facility] ECG COMPLETE [facility] Work Phone: Comment on above: Ordered: 10/18/2023 ECG COMPLETE ECG COMPLETE ECG 11/08/2023 4:52 PM EDT [facility] End: 01-21-2023 ECHO TRANSESOPHAGEAL ECHO TRANSESOPHAGEAL Cardiology Routine Paroxysmal atrial fibrillation (HCC) 1 Occurrences starting 01/21/2022 until 01/21/2023 [facility] Work Phone: Comment on above: 1 Occurrences starting 01/21/2022 until 01/21/2023 End: 02-09-2023 ECHO TRANSESOPHAGEAL ECHO TRANSESOPHAGEAL Cardiology Routine Paroxysmal atrial fibrillation (HCC) Presence of Watchman left atrial appendage closure device 1 Occurrences starting 02/09/2022 until 02/09/2023 [facility] Work Phone: Comment on above: 1 Occurrences starting 02/09/2022 until 02/09/2023 ECHO TRANSESOPHAGEAL ECHO TRANSE SOPHAGEAL Cardiology Routine Longstanding persistent atrial fibrillation (HCC) Presence of Watchman left atrial appendage closure device Ordered: 03/04/2022 [facility] Work Phone: Comment on above: Ordered: 03/04/2022 End: 10-17-2024 Echocardiography ECHO Cardiology Routine Acute systolic CHF (congestive heart failure) (HCC) 1 Occurrences starting 10/18/2023 until 10/17/2024 [facility] Work Phone: Comment on above: 1 Occurrences starting 10/18/2023 until 10/17/2024 End: 01-01-2026 Echocardiography ECHO Cardiology Routine Chronic diastolic (congestive) heart failure (HCC) History of prosthetic aortic valve replacement Acute on chronic diastolic congestive heart failure (HCC) 1 Occurrences starting 01/01/2025 until 01/01/2026 [facility] Work Phone: Comment on above: 1 Occurrences starting 01/01/2025 until 01/01/2026 End: 01-01-2023 EGD DIAGNOSTIC EGD DIAGNOSTIC Endoscopy Routine Acute blood loss anemia Heme + stool Epigastric pain 1 Occurrences starting 01/01/2022 until 01/01/2023 [facility] Work Phone: Comment on above: 1 Occurrences starting 01/01/2022 until 01/01/2023 Erythrocyte mean corpuscular volume determination [facility] Erythrocyte mean corpuscular volume determination [facility] Ferritin [Mass/volum e] in Serum or Plasma [facility] Glucose [Mass/volume ] in Serum or Plasma [facility] Glucose [Mass/volume ] in Serum or Plasma [facility] Hematocrit [Volume Fraction] of Blood [facility] Hematocrit [Volume Fraction] of Blood [facility] Hemoglobin [Mass/vol ume] in Blood [facility] Hemoglobin [Mass/vol ume] in Blood [facility] Hemoglobin.braden rhodeslower [Presence] in Stool by Immunoassay FECAL OCCULT BLOOD TEST Lab Routine Heme + stool Ordered: 12/15/2021 [facility] Work Phone: Comment on above: Ordered: 12/15/2021 Hemoglobin.braden rhodeslower [Presence] in Stool by Immunoassay IMMUNOCHEMICAL FECAL OCCULT BLOOD TEST Lab Routine Acute systolic CHF (congestive heart failure) (HCC) Ordered: 11/04/2023 [facility] Work Phone: Comment on above: Ordered: 11/04/2023 Iron [Mass/mass] in Unspecified specimen [facility] Iron and Iron bindin g capacity panel - Serum or Plasma [facility] Iron saturation [Mas s Fraction] in Serum or Plasma [facility] Leukocytes [#/volume ] in Blood [facility] Leukocytes [#/volume ] in Blood [facility] Low density lipoprot ein cholesterol measurement [facility] Magnesium measurement 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 B prohormone N-Terminal [Mass/volume] in Serum or Plasma [facility] Neutrophil count [facility] Neutrophil count [facility] Neutrophil percent differential count [facility] Neutrophil percent differential count [facility] Patient Education [facility] Work Phone: Platelets [#/volume] in Blood [facility] Platelets [#/volume] in Blood [facility] Potassium measurement [facility] Potassium measurement 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 (HCC) 1 Occurrences starting 01/07/2023 until 01/08/2024 [facility] Work Phone: Comment on above: 1 Occurrences starting 01/07/2023 until 01/08/2024 End: 01-08-2024 PVR LEG [facility] PVR LEG [facility] Vascular Lab Routine 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HCC) Pain in both lower legs Atherosclerosis of [place] artery of both lower extremities with intermittent claudication (HCC) 1 Occurrences starting 01/07/2023 until 01/08/2024 [facility] Work Phone: Comment on above: 1 Occurrences starting 01/07/2023 until 01/08/2024 Red blood cell count [facility] Red blood cell count [facility] Red cell distributio n width determination [facility] Red cell distributio n width determination [facility] Serum chloride measurement [facility] Serum chloride measurement [facility] Sodium measurement [facility] Sodium measurement [facility] SURGICAL PATHOLOGY [facility] Work Phone: Comment on above: Release Upon Ordering for 1 Occurrences starting 01/02/2022, 1 completed Total cholesterol:HD L ratio measurement [facility] Total iron binding capacity measurement [facility] Total protein measurement [facility] Triglycerides measurement [facility] Troponin T.cardiac [Mass/volume] in Serum or Plasma by High sensitivity method [facility] Urea nitrogen [Mass/volume] in Serum or Plasma [facility] Urea nitrogen [Mass/volume] in Serum or Plasma [facility] End: 01-08-2024 US CAROTID ARTERIES [facility] US CAROTID ARTERIES [facility] Vascular Lab Routine Bilateral carotid artery stenosis 1 Occurrences starting 01/07/2023 until 01/08/2024 [facility] Work Phone: Comment on above: 1 Occurrences starting 01/07/2023 until 01/08/2024 End: 12-20-2025 US Mesenteric arteries US MESENTERIC ARTERY [facility] Vascular Lab Routine Superior mesenteric artery stenosis (HCC) 1 Occurrences starting 12/20/2024 until 12/20/2025 [facility] Work Phone: Comment on above: 1 Occurrences starting 12/20/2024 until 12/20/[address] [facility] Immunizations Immunization Date Immunization Notes Care Provider Fa mallorie 07-07-2024 influenza, high dose seasonal, preservative-free Melida Eugene BOYLE Work Phone: [facility] 07-07-2024 influenza virus vacc ine, unspecified formulation Carla Burdick MD Work Phone: [facility] 04-12-2023 influenza (HD-IIV4) vaccine, age 65+ yr, high dose, quadrivalent, PF (FLUZONE HIGH-DOSE) Ct (I-Stat) Work Phone: [facility] 04-12-2023 influenza virus vacc ine, unspecified formulation Carla Burdick MD Work Phone: [facility] 05-22-2022 influenza (aIIV4) vaccine, age 65+ yr, quadrivalent, PF (FLUAD QUADRIVALENT) NA Rey HAMLIN Work Phone: [facility] 05-22-2022 influenza, high-dose , quadrivalent vaccine (FLUZONE HIGH DOSE QUADRIVALENT) Sonny Lund MD Work Phone: [facility] 05-22-2022 influenza virus vacc ine, unspecified formulation Yin Joseph MD Work Phone: [facility] 05-20-2021 influenza, high-dose , quadrivalent vaccine (FLUZONE HIGH DOSE QUADRIVALENT) Chandler Swan MD Work Phone: [facility] 10-09-2020 COVID-19 vaccine, ag e 12+ yr (PFIZER-BIONTECH - PURPLE TOP) Chandler Swan MD Work Phone: [facility] 09-18-2020 COVID-19 vaccine, ag e 12+ yr (Coupoplaces-BIONTECH - PURPLE TOP) Chandler Swan MD Work Phone: [facility] 05-17-2020 influenza, high-dose , quadrivalent vaccine (FLUZONE HIGH DOSE QUADRIVALENT) Chandler Swan MD Work Phone: [facility] 05-09-2019 influenza, high dose seasonal, preservative-free Chandler Swan MD Work Phone: [facility] 11-08-2018 zoster vaccine recombinant Chandler Swan MD Work Phone: [facility] Work Phone: 05-09-2018 Seasonal trivalent influenza vaccine, adjuvanted, preservative free Chandler Swan MD Work Phone: [facility] 05-05-2017 influenza nasal, unspecified formulation Chandler Swan MD Work Phone: [facility] 05-05-2017 influenza, injectabl e, quadrivalent, contains preservative Chandler Swan MD Work Phone: [facility] 05-05-2017 influenza, seasonal, injectable Chandler Swan MD Work Phone: [facility] 05-05-2017 influenza virus vacc ine, unspecified formulation [facility] 04-05-2017 influenza, injectabl e, quadrivalent, preservative free Ct (I-Stat) Work Phone: [facility] 04-05-2017 influenza, seasonal, injectable [facility] 04-05-2017 influenza, seasonal, injectable, preservative free Chandler Swan MD Work Phone: [facility] 11-25-2016 pneumococcal conjuga te vaccine, 13 valent Chandler Swan MD Work Phone: [facility] Work Phone: 04-07-2016 influenza, high dose seasonal, preservative-free Chandler Swan MD Work Phone: [facility] Work Phone: 01-08-2014 tetanus toxoid, redu javid diphtheria toxoid, and acellular pertussis vaccine, adsorbed Chandler Swan MD Work Phone: [facility] Work Phone: 06-06-2013 pneumococcal polysaccharide vaccine, 23 valent Chandler Swan MD Work Phone: [facility] 05-14-2013 influenza nasal, unspecified formulation Chandler Swan MD Work Phone: [facility] 05-14-2013 influenza virus vacc ine, unspecified formulation Chandler Swan MD Work Phone: [facility] 05-14-2013 influenza, seasonal, injectable, preservative free Chandler Swan MD Work Phone: [facility] 05-20-2012 influenza, seasonal, injectable Chandler Swan MD Work Phone: [facility] 04-29-2011 influenza, seasonal, injectable, preservative free Chandler Swan MD Work Phone: [facility] 04-23-2009 influenza, seasonal, injectable Chandler Swan MD Work Phone: [facility] 07-07-1999 pneumococcal polysaccharide vaccine, 23 valent Chai Encinas MD Work Phone: [facility] Work Phone: 07-05-1999 pneumococcal polysaccharide vaccine, 23 valent Chandler Swan MD Work Phone: [facility] Payers Date Payer Category Payer Self-pay [id number] 2021 Medicare [id number] 2021 Medicare [id number] 2021 Medicare (Managed Care) PRADEEP NIKCERSON [id number] 2021 Private Health Insurance Formerly named [facility] [id number] 2019 Medicare MEDICARE HUMANA HMO PPO MEDICARE HUMANA O PPO xxxxxxxxx 2019- xxxxxxxxx [id number] 2015 Medicare SELF PAY INSURANCE [id number] Unknown [id number] 2.840.1.573832.3.579.2. 462 Unknown [id number] 2.840.1.395660.3.579.2. 462 Unknown [id number] 2.16840.1.705857.3.579.2. 462 Unknown [id number] 2.16840.1.458723.3.579.2. 462 Unknown [id number] 2.16840.1.110089.3.579.2. 462 Unknown [id number] 2.16840.1.852637.3.579.2. 462 Unknown [id number] 2.16840.1.103117.3.579.2. 462 Unknown [id number] 2.16840.1.273952.3.579.2. 462 Unknown [id number] 2.16.840.1.966757.3.579.2. 462 Unknown [id number] 2.16.840.1.108084.3.579.2. 462 Unknown [id number] 2.16.840.1.837497.3.579.2. 462 Unknown [id number] 2.16.840.1.559807.3.579.2. 462 Unknown [id number] 2.16.840.1.521413.3.579.2. 462 Unknown [id number] 2.16.840.1.363052.3.579.2. 462 Unknown [id number] 2.16.840.1.060828.3.579.2. 462 Unknown [id number] 2.16.840.1.880916.3.579.2. 462 Unknown [id number] 2.16840.1.401856.3.579.2. 462 Unknown [id number] 2.16840.1.725835.3.579.2. 462 Unknown [id number] 2.16840.1.772736.3.579.2. 462 Unknown [id number] 2.16.840.1.142639.3.579.2. 462 Unknown [id number] 2.16840.1.895588.3.579.2. 462 Unknown [id number] 2.16.840.1.473412.3.579.2. 462 Unknown [id number] 2.16.840.1.131936.3.579.2. 462 Unknown [id number] 2.16.840.1.137278.3.579.2. 462 Unknown [id number] 2.16.840.1.861954.3.579.2. 462 Unknown [id number] 2.16.840.1.349707.3.579.2. 462 Unknown [id number] 2.16.840.1.993615.3.579.2. 462 Unknown [id number] 2.16.840.1.823076.3.579.2. 462 Unknown [id number] 2.16.840.1.243939.3.579.2. 462 Unknown [id number] 2.16.840.1.067550.3.579.2. 462 Unknown [id number] 2.16.840.1.335420.3.579.2. 462 Unknown [id number] 2.16.840.1.101037.3.579.2. 462 Unknown [id number] 2.16.840.1.086389.3.579.2. 462 Unknown [id number] 2.16.840.1.338812.3.579.2. 462 Unknown [id number] 2.16.840.1.771765.3.579.2. 462 Unknown [id number] 2.16.840.1.713834.3.579.2. 462 Unknown [id number] 2.16.840.1.676451.3.579.2. 462 Unknown [id number] 2.16.840.1.531366.3.579.2. 462 Unknown [id number] 2.16.840.1.571994.3.579.2. 462 Unknown [id number] 2.16.840.1.260793.3.579.2. 462 Unknown [id number] 2.16.840.1.779416.3.579.2. 462 Social History Date Type Detail Facility Start: 01-19-2019 End: 03-22-2025 Tobacco smoking status [facility] Former smoker [facility] Start: 01-19-2019 Tobacco Comment smoked for a y ear, 50 years ago [facility] Start: 01-19-2019 Alcohol Comment occasional wine [employer] Start: 1945 Sex Assigned At Not on file [facility] Start: 07-05-1965 End: 02-11-1970 History of tobacco use Current smoker [facility] Start: 08-10-2019 End: 04-07-2024 Tobacco use and exposure Smokeless tobacco non-user [facility] Start: 09-16-2021 End: 12-15-2021 Alcohol intake Current drinker of alcohol (finding) [facility] Start: 09-16-2021 End: 01-07-2023 Alcohol intake [facility] Start: 10-25-2019 End: 10-29-2019 History SDOH Alcohol Frequency 2 [facility] Start: 10-25-2019 End: 10-29-2019 History SDOH Alcohol Std Drinks 1 [facility] Start: 01-31-2019 History SDOH Alcohol Comment red wine 2-3 times a week- occasional [facility] Start: 10-29-2019 History SDOH Social Connections Phone 5 [facility] Start: 10-29-2019 End: 02-24-2022 History SDOH Social Connections Sikh 3 [facility] Start: 10-29-2019 Education 15 [facility] Start: 09-05-2021 End: 05-14-2022 Exposure to SARS-CoV-2 (event) Not sure [facility] Start: 10-14-2021 End: 01-23-2022 Exposure to SARS-CoV-2 (event) Unable to assess [facility] Start: 02-13-2021 Tobacco smoking stat us [facility] Unknown if ever smoked [facility] Work Phone: Start: 1945 Sex Assigned At Female W [facility] Start: [birth year]-05-1965 End: 02-11-1970 History of tobacco use Cigarette Smoker [facility] Start: 06-08-2022 End: 12-20-2024 Alcohol intake Ex-drinker (finding) [facility] Start: 01-07-2023 End: 12-11-2024 Tobacco use panel [facility] Start: 06-05-2012 How hard is it for y ou to pay for the very basics like food, housing, medical care, and heating Patient refused [facility] (I/We) worried marcella forman (my/our) food would run out before (I/we) got money to buy more. DK or Refused [facility] Do you belong to any clubs or organizations such as anglican groups, unions, fraternal or athletic groups, or school groups? Yes [facility] Are you now , , , , never or living with a partner? [facility] How often to you hav e a drink containing alcohol? Monthly or less [facility] How many standard dr inks containing alcohol do you have on a typical day? 1 or 2 [facility] How often do you hav e 6 or more drinks on 1 occasion? Never [facility] Do you feel stress - tense, restless, nervous, or anxious, or unable to sleep at night because your mind is troubled all the time - these days [OSQ] Not at all [facility] Has the [employer] oil, or water Bee There threatened to shut off services in your home in past 12Mo No [facility] (I/We) worried marcella forman (my/our) food would run out before (I/we) got money to buy more. Never true [facility] Start: 01-07-2025 End: 01-11-2025 Tobacco smoking status NHIS Never smoked tobacco (finding) [facility] Start: 11-15-2017 Alcohol Alcohol [facility] Start: 11-15-2017 Drugs Drugs [facility] Start: 11-15-2017 Lives Lives [facility] Start: 01-11-2025 Tobacco Use Tobacco Use [facility] Medical Equipment Procedure Code Equipment Code Equipment Origin al Text Equipment Identifier Dates Test blood sugar (s) 2 times daily. Dx: Type 2 DM - Controlled E11.9 Insulin: No [id number] Start: 01-19-2019 Comment on above: Test blood sugar(s) 2 times daily. Dx: Type 2 DM - Controlled E11.9 Insulin: No [id number] Sania Xt [id number] Start: 10-21-2020 [id number] [employer] Selam Surecaro [id number] Start: 10-21-2020 [id number] [employer]aps[employer]ievan [id number] Start: 10-21-2020 Goals Date Patient Goal Desired Activity /State Personal health goal Functional Status Date Assessment Result Facility 01-11-2025 Functional status Chair [facility] Work Phone: 12-12-2024 Are you deaf, or do you have serious difficulty hearing Yes 12/12/2024 10:12 AM EDT Lizeth Jordan RN Yes [facility] 12-12-2024 Are you blind, or do you have serious difficulty seeing, even when wearing glasses No 12/12/2024 10:12 AM EDT Lizeth Jordan RN No [facility] 12-12-2024 Do you have serious difficulty walking or climbing stairs No 12/12/2024 10:12 AM EDT Lizeth Jordan RN No [facility] 12-12-2024 Do you have difficul ty dressing or bathing No 12/12/2024 10:12 AM EDT Lizeth Jordan RN No [facility] 12-12-2024 Because of a physica l, mental, or emotional condition, do you have difficulty doing errands alone such as visiting a physician's office or shopping No 12/12/2024 10:12 AM EDT Lizeth Jordan RN No [facility] 11-12-2023 Are you deaf, or do you have serious difficulty hearing No 11/12/2023 3:37 PM EDT Raina Coppola RN No [facility] 11-12-2023 Are you blind, or do you have serious difficulty seeing, even when wearing glasses No 11/12/2023 3:37 PM EDT Raina Coppola RN No [facility] 11-12-2023 Do you have serious difficulty walking or climbing stairs No 11/12/2023 3:37 PM EDRaina Kaplan RN No [facility] 11-12-2023 Do you have difficul ty dressing or bathing No 11/12/2023 3:37 PM Raina Camp RN No [facility] 11-12-2023 Because of a physica l, mental, or emotional condition, do you have difficulty doing errands alone such as visiting a physician's office or shopping No 11/12/2023 3:37 PM Raina Camp RN No [facility] Mental Status Date Assessment Result Facility 03-27-2025 Cognitive function Voice/Name [facility] Work Phone: 03-20-2025 Cognitive function Awake [facility] Work Phone: 01-11-2025 Cognitive function Voice/Name [facility] Work Phone: 12-12-2024 Because of a physica l, mental, or emotional condition, do you have serious difficulty concentrating, remembering, or making decisions No 12/12/2024 10:12 AM EDT Lizeth Jordan RN No [facility] 11-12-2023 Because of a physica l, mental, or emotional condition, do you have serious difficulty concentrating, remembering, or making decisions No 11/12/2023 3:37 PM EDT Raina Coppola RN No [facility] 12-30-2021 Cognitive function Voice/Name [facility] Work Phone: Clinical Notes 02-15-2021 to 03-29-2025 Note Date & Type Note Facility 03-29-2025 Progress note Note Date/Time March 29, 2025 4:05pm [facility] [address] [place] [address] Progress Note - Wound Care 03/29/25 1237 MR#: [id number] Acct: [id number] Name: BERTA SANCHES Rep #:[id number] : [...] Method Room Air Charges/Coding Procedures Integumentary 111xxx-113xx: 68798 Etelvina subq tissue 20 sq cm/< Physical [...] Date Recorded By Document 03/08/25 09:53 KW [id number] 03/08/25 10:07 KW Document 03/15/25 11:36 ML [id number] 03/15/25 11:44 ML Document 03/29/25 11:05 [id number] 03/29/25 11:15 LINDSAY 03/08/25 03/15/25 03/29/25 09:53 11:36 11:05 WC - Today's Visit Information Type of service Follow-up Visit Follow-up Visit Follow-up Visit (Physician/SOCIAL SCIENCE INSTRUCTOR (Physician/SOCIAL SCIENCE INSTRUCTOR (Physician/SOCIAL SCIENCE INSTRUCTOR ) ) ) Arrival Mode Ambulatory Ambulatory [...] Date Recorded By Document 03/08/25 09:53 KW [id number] 03/08/25 10:07 KW Document 03/15/25 11:36 ML [id number] 03/15/25 11:44 ML Document 03/29/25 11:15 [id number] 03/29/25 11:38 03/08/25 03/15/25 03/29/25 09:53 11:36 [...] Amt Small (1-33%) Large (67-100%) -Granulation Quality [place] -Slough/Fibrin Yes No -Necrosis Amt Small (1-33%) [...] Present (0 Small (1-33%) %) -Granulation Quality [place] -Slough/Fibrin Yes -Necrosis Amt None Present (0 [...] Recorded Date Recorded By Document 03/08/25 10:43 [id number] 03/08/25 10:54 GM Document 03/15/25 12:00 GM [id number] 03/15/25 12:09 GM Edit Result 03/15/25 12:00 GM (1) [id number] 03/21/25 12:09 GM Document 03/29/25 11:41 JF [id number] 03/29/25 11:46 JF (1) #2 RT HEEL [...] Date Recorded By Document 03/08/25 11:17 MT [id number] 03/08/25 11:20 MT Document 03/15/25 12:32 RB [id number] 03/15/25 12:34 RB Document 03/29/25 11:58 JF [id number] 03/29/25 12:01 JF 03/08/25 03/15/25 03/29/25 11:17 [...] if needed. This note was generated with Factorliation software. It may contain incorrectwords, spelling, and punctuation that were not noted in checking the note beforesigning. 03/29/25 1605 <Electronically signed by Ebony Cerrato MD> Cosigner Signature (if applicable): CC: ~ Signed [facility] Work Phone: 1(493) 152-616709-11-2025 Progress note Author Ebony Cerrato [facility] Note Date/Time March 15, 2025 4:29pm [facility] [address] [place] [address] Progress Note - Wound Care 03/15/25 1309 MR#: [id number] Acct: [id number] Name: BERTA SANCHES Rep #:[id number] : [...] Method Room Air Charges/Coding Procedures Integumentary 111xxx-113xx: 44839 Etelvina subq tissue 20 sq cm/< Physical [...] Date Recorded By Document 03/08/25 09:53 KW [id number] 03/08/25 10:07 KW Document 03/15/25 11:36 ML [id number] 03/15/25 11:44 ML 03/08/25 03/15/25 09:53 11:36 - Today's Visit Information Type of service Follow-up Visit Follow-up Visit (Physician/SOCIAL SCIENCE INSTRUCTOR (Physician/SOCIAL SCIENCE INSTRUCTOR ) ) Arrival Mode Ambulatory Ambulatory Transfer [...] Date Recorded By Document 03/08/25 09:53 KW [id number] 03/08/25 10:07 KW Document 03/15/25 11:36 ML [id number] 03/15/25 11:44 ML 03/08/25 03/15/25 09:53 11:36 [...] (67-100%) None Present (0 %) -Granulation Quality [place] -Necrosis Amt None Present (0 %) -Texture [...] Recorded Date Recorded By Document 03/08/25 10:43 [id number] 03/08/25 10:54 Document 03/15/25 12:00 [id number] 03/15/25 12:09 03/08/25 03/15/25 10:43 12:00 Wound [...] Date Recorded By Document 03/08/25 11:17 MT [id number] 03/08/25 11:20 MT Document 03/15/25 12:32 RB [id number] 03/15/25 12:34 RB 03/08/25 03/15/25 11:17 12:32 [...] -Silicone Border Foam 4x4 1 #1 RT KARU CLUSTER -Primary Dressing Applied Silicone Border Foam [...] if needed. This note was generated with Factorliation software. It may contain incorrectwords, spelling, and punctuation that were not noted in checking the note beforesigning. 03/15/25 8660 <Electronically signed by Ebony Cerrato MD> Cosigner Signature (if applicable): CC: ~ Signed [facility] Work Phone: 1(808) 655-750409-04-2025 Progress note Author Ebony Cerrato [facility] Note Date/Time March 08, 2025 12:44pm [facility] [address] [place] [address] Progress Note - Wound Care 03/08/25 1234 MR#: [id number] Acct: [id number] Name: BERTA SANCHES Rep #:[id number] : [...] Method Room Air Charges/Coding Procedures Integumentary 111xxx-113xx: 49308 Etelvina subq tissue 20 sq cm/< Physical [...] Recorded Date Recorded By Document 03/08/25 09:53 [id number] 03/08/25 10:07 03/08/25 09:53 WC - Today's Visit Information Type of service Follow-up Visit (Physician/SOCIAL SCIENCE INSTRUCTOR ) Arrival Mode Ambulatory Accompanied by Patient [...] Date Recorded By Document 03/08/25 09:53 KW [id number] 03/08/25 10:07 KW 03/08/25 09:53 Wound Center [...] Attached -Granulation Amt Large (67-100%) -Granulation Quality [place] -Texture (Violet-wound Skin Appearance) Assessed,Callus -Moisture (Violet-wound [...] Recorded Date Recorded By Document 03/08/25 10:43 [id number] 03/08/25 10:54 03/08/25 10:43 Wound Center Nurse [...] Recorded Date Recorded By Document 03/08/25 11:17 [place] [id number] 03/08/25 11:20 [place] 03/08/25 11:17 Wound Care Center Nurse 3 [...] if needed. This note was generated with Clearbon dictation software. It may contain incorrectwords, spelling, and punctuation that were not noted in checking the note beforesigning. 03/08/25 1244 <Electronically signed by Ebony Cerrato MD> Cosigner Signature (if applicable): CC: ~ Signed [facility] Work Phone: 1(878) 439-267108-28-2025 History and physical note Author Ebony Cerrato [facility] Note Date/Time March 01, 2025 9: 58pm [facility] [address] [place] [address] H&P Exam - Wound Care 03/01/25 1249 MR#: [id number] Acct: [id number] Name: BERTA SANCHES Rep #:[id number] : 1945 79 From: Ebony collins MD PCP: Dr. Vincent Flores MD Status:REG R CR Location: ADDENDUM by Dr. Ebony Cerrato MD on 03/01/25 at 2158 Visit Charges Office Visits / Consults: 01070 OV L3 Est 20min Procedures Integumentary 111xxx-113xx: 15728 Etelvina subq tissue 20 sq cm/< 03/01/25 [...] Otherwise, she states that she feels well. 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 Financial Auditor to contact place of gnosticism No YANY - Nurse 1 - General Ulcer Measurement Start: 03/01/25 09:07 Freq: Status: Active Protocol: Activity Type Activity Date Activity User E-sign Co-sign Detail Recorded Client Recorded Date Recorded By Document 03/01/25 09:12 KW [id number] 03/01/25 09:35 KW 03/01/25 09:12 Wound Center Nurse 1 #3 LT HEEL -Current Size (cm) - Length 0.1 -Current Size (cm) - Width 0.4 -Current Size (cm) - Depth 0.1 -Total Square Cm 0.04 -Date of Last Picture (Recall this 03/01/25 field) -Exudate Amt Small -Exudate Type Serosanguineous -Wound Margin Thickened -Granulation Amt Small (1-33%) -Granulation Quality [place] -Necrosis Amt Large (67-100%) -Necrotic Tissue Type [...] Thickened -Granulation Amt Small (1-33%) -Granulation Quality [place] -Necrosis Amt Large (67-100%) -Necrotic Tissue Type [...] Attached -Granulation Amt Large (67-100%) -Granulation Quality [place],Red -Texture (Violet-wound Skin Appearance) Assessed -Moisture (Violet-wound [...] Recorded Date Recorded By Document 03/01/25 09:52 [id number] 03/01/25 10:09 03/01/25 09:52 Wound Center Nurse [...] Recorded Date Recorded By Document 03/01/25 10:32 [place] [id number] 03/01/25 10:36 MT 03/01/25 10:32 Wound Care [...] if needed. This note was generated with Clearbon dictation software. It may contain incorrectwords, spelling, and punctuation that were not noted in checking the note beforesigning. 03/01/252156 <Electronically signed by Ebony Cerrato MD> Cosigner Signature (if applicable): CC: ~ Signed [facility] Work Phone: 1(571) 440-955408-15-2025 Radiology Diagnostic study note [facility] Imaging Services [address] [place] [address] Chest PA and Lateral MR#: [id number] Acct: [id number] Name: BERTA SANCHES Rep #: [id number] : 1945 F 79 From: Tevin Chaves MD PCP: Dr. Vincent Flores MD Status: REG E R Study:Chest PA and Lateral Date of Exam: 02/16/25 Exam# [id number] Ordering Dr: Glenna Pang MD PROCEDURE: CHEST [...] arteries suggestive of pulmonary hypertension. Reading Location: [facility] CC: Dr. Magdy Pang MD; Dr. Vincent Flores MD ~ Maintenance Mechanic: Signed [facility]08-07-2025 Procedure [facility] [address] [place] [address] Pacemaker Check Date of Service: 02/08/251424 MR#: [id number] Acct: [id number] Name: BERTA SANCHES Rep #: [id number] : 1945 From: Pau wilson Age/Sex: 79/F Location: [facility] Status: Signed Billing Codes PM Device Codes: 13898 PM Dev Prog Eval, Dual Assessment and Plan Assessment and Plan (1) Presence of Watchman left atrial appendage closure device: Status: Acute (2) Pacemaker: Status: Acute Comment: 10/21/[address] MRI PlayyOnscan W1DR01 pulse generator programmed as AAIR (3) Cardiac arrhythmia: Status: Acute Qualifiers: Arrhythmia type: unspecified cardiac arrhythmia Qualified Code(s): I49.9 - Cardiac arrhythmia, unspecified 02/08/251425 > Date _ Pau Mccormack Signature: Date (if applicable) CC: ~ [facility]2025 Evaluation note* Diagnosis Onset Date Resolution Status [...] (paroxysmal atrial fibrillation) chronic May 10 11:22am [place] [facility] Work Phone: 1(582) 959-418807-28-2025 Telephone encounter Note* Telephone Encounter - Irma Hwang RN - 01/29/2025 5:17 PM EDT Pharmacy electronically requests the following refill(s) Requested Prescriptions Pending Prescriptions Disp Refills simvastatin (ZOCOR) 40 mg tablet [Pharmacy Med Name: SIMVASTATIN 20 MG TAB[*]] 90 tablet 3 Sig: Take 1 tablet by mouth daily at bedtime. Irma Hwang RN [facility]07-28-2025 Miscellaneous Notes* Telephone Encounter - Irma Hwang RN - 01/29/2025 5:17 PM EDT Pharmacy electronically requests the following refill(s) Requested Prescriptions Pending Prescriptions Disp Refills simvastatin (ZOCOR) 40 mg tablet [Pharmacy Med Name: SIMVASTATIN 20 MG TAB[*]] 90 tablet 3 Sig: Take 1 tablet by mouth daily at bedtime. Irma Hwang RN documented in this encounterCleveland [id number] Discharge summary [facility] Medical Records Department [address] [place] [address] Instructions for Home/Discharge Instructions 01/11/25 1226 MR#: [id number] Acct: [id number] Name: BERTA SANCHES Rep #:[id number] : [...] Hernandez MD [Non-Staff] - Deysi Collazo NP, TENNIS INSTRUCTOR-C [Primary Care Provider] - Disposition Disposition (needs filled in before D/C Order can be placed): Home, Self Care 01/11/25 1230Dianne Stovall DO CC: TENNIS INSTRUCTOR-C Deysi Collazo; Dr. Jeremy Mcgarry MD; Dr. Radha Heller MD ~ Signed [facility]07-10-20[facility] Progress note Author [facility] Note Date/Time January 10, 2025 6:26p [facility] Medical Records Department [address] [place] [address] Progress Note - Hospitalist 01/10/25 1823 MR#: [id number] Acct: [id number] Name: BERTA SANCHES SCOTTIE Rep #:[id number] : 1945 79 From: Dianne Stovall DO PCP: JARROD Cantu Status:ADM I N Location: [place] [address] Reason for Visit Reason for Visit: Diagnoses [...] team: 35-minute Charges/Coding Visit Charges Inpatient E&M: 14701 Subs Hosp L2 NIHSS NIHSS Nursing Documentation NIHSS Nursing Documentation: NIHSS: Ischemic Stroke/TIA Start: 01/08/25 00:49 Freq: [id number] Status: Complete Protocol: Activity Type Activity Date Activity User E-sign Co-sign Detail Recorded Client Recorded Date Recorded By Document 01/08/25 03:22 [id number] 01/08/25 03:24 01/08/25 03:22 NIH Stroke Scale [...] and with change in RN caregiver. Freq: D1NHCOF Protocol: Activity Type Activity Date Activity User E-sign Co-sign Detail Recorded Client Recorded Date Recorded By Document 01/08/25 12:00 [id number] 01/08/25 12:10 01/08/25 12:00 NIH Stroke Scale [...] Cosigner Signature (if applicable): CC: ~ Signed [facility] Work Phone: 1(113) 444-531707-09-2025 Progress note [facility] Medical Records Department [address] [place] [address] Progress Note - Hospitalist 01/10/25 1823 MR#: [id number] Acct: [id number] Name: BERTA SANCHES SCOTTIE Rep #:[id number] : 1945 79 From: Dianne Stovall DO PCP: JARROD Cantu Status:ADM I N Location: [place] [address] Reason for Visit Reason for Visit: Diagnoses [...] team: 35-minute Charges/Coding Visit Charges Inpatient E&M: 25382 Subs Hosp L2 NIHSS NIHSS Nursing Documentation NIHSS Nursing Documentation: NIHSS: Ischemic Stroke/TIA Start: 01/08/25 00:49 Freq: [id number] Status: Complete Protocol: Activity Type Activity Date Activity User E-sign Co-sign Detail Recorded Client Recorded Date Recorded By Document 01/08/25 03:22 [id number] 01/08/25 03:24 01/08/25 03:22 NIH Stroke Scale [...] and with change in RN caregiver. Freq: C1IGACV Protocol: Activity Type Activity Date Activity User E-sign Co-sign Detail Recorded Client Recorded Date Recorded By Document 01/08/25 12:00 [id number] 01/08/25 12:10 01/08/25 12:00 NIH Stroke Scale [...] Cosigner Signature (if applicable): CC: ~ Signed [facility]07-09-2025 Progress note Author Jeremy Mcgarry [facility] Note Date/Time January 10, 2025 11:52 am [facility] Medical Records Department [address] [place] [address] Progress Note - Nephrology 01/10/25 1150 MR#: [id number] Acct: [id number] Name: BERTA SANCHES Rep #:[id number] : 1945 79 From: Jeremy ferris MD PCP: JARROD Cantu Status:ADM I N Location: [place] [address] Subjective Subjective No new complaints today Objective [...] disease, stage 3b: PLAN: Reviewed records from [facility] where her primary care physician is, from care everywhere from [facility] During her hospitalization in October,[facility] where she was admitted in December. 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 left-sided renal [...] Cosigner Signature (if applicable): CC: ~ Signed [facility] Work Phone: 1(368) 248-655007-09-2025 Progress note [facility] Medical Records Department [address] [place] [place] [address] Progress Note - Nephrology 01/10/25 1150 MR#: [id number] Acct: [id number] Name: BERTA SANCHES Rep #:[id number] : 1945 79 From: Jeremy ferris MD PCP: JARROD Cantu Status:ADM I N Location: [place] [address] Subjective Subjective No new complaints today Objective [...] disease, stage 3b: PLAN: Reviewed records from [facility] where her primary care physician is, from care everywhere from [facility] During her hospitalization in October,[facility] where she was admitted [facility]. 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 She also has left-sided renal [...] Cosigner Signature (if applicable): CC: ~ Signed [facility]07-08-2025 Progress note Author Dianne Stovall [facility] Note Date/Time January 09, 2025 2:38p gerard [facility] Medical Records Department [address] [place] [address] Progress Note - Hospitalist 01/08/251848 MR#: [id number] Acct: [id number] Name: BERTA SANCHES Rep #:[id number] : 1945 79 From: Dianne Stovall DO PCP: JARROD Cantu Status:ADM I N Location: [place] [address] Reason for Visit Reason for Visit: Diagnoses [...] for this. Patient was also hospitalized recently [facility] for congestive heart failure. 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 11:17 p.m. 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 OCCASIONALLY OTHER PLAQUES ARE SEEN BUT NON FLOW LIMITING. NO LARGE VESSEL OCCLUSION. Requested contact with the referring physician at 11:55 p.m. verbal report to charge nurse Melida at 12:05 a.m. Reading Location: [facility] Carotid Duplex 01/08/25 05:04 Interpretation Summary Mild [...] NIHSS: Ischemic Stroke/TIA Start: 01/08/25 00:49 Freq: [id number] Status: Complete Protocol: Activity Type Activity Date Activity User E-sign Co-sign Detail Recorded Client Recorded Date Recorded By Document 01/08/25 03:22 [id number] 01/08/25 03:24 01/08/25 03:22 NIH Stroke Scale [...] and with change in RN caregiver. Freq: E2IHNTH Protocol: Activity Type Activity Date Activity User E-sign Co-sign Detail Recorded Client Recorded Date Recorded By Document 01/08/25 12:00 [id number] 01/08/25 12:10 01/08/25 12:00 NIH Stroke Scale [...] team: 35 minutes Visit Charges Inpatient E&M: 47620 Subs Hosp L2 01/09/25 1438<Electronically signed by Dianne Stovall DO> Cosigner Signature (if applicable): cc: ~* Signed [facility] Work Phone: 1(670) 655-951607-08-2025 Progress note Author [facility] Note Date/Time January 09, 2025 2:37p m [facility] Medical Records Department [address] [place] [address] Progress Note - Hospitalist 01/09/25 1434 MR#: [id number] Acct: [id number] Name: BERTA SANCHES Rep #:[id number] : 1945 79 From: Dianne Stovall DO PCP: JARROD Cantu Status:ADM I N Location: [place] [address] Reason for Visit Reason for Visit: Diagnoses [...] 35 minutes Charges/Coding Visit Charges Inpatient E&M: 60704 Subs Hosp L2 NIHSS NIHSS Nursing Documentation NIHSS Nursing Documentation: NIHSS: Ischemic Stroke/TIA Start: 01/08/25 00:49 Freq: V2IKIZL Status: Complete Protocol: Activity Type Activity Date Activity User E-sign Co-sign Detail Recorded Client Recorded Date Recorded By Document 01/08/25 03:22 [id number] 01/08/25 03:24 01/08/25 03:22 NIH Stroke Scale [...] and with change in RN caregiver. Freq: J9LDMQG Protocol: Activity Type Activity Date Activity User E-sign Co-sign Detail Recorded Client Recorded Date Recorded By Document 01/08/25 12:00 [id number] 01/08/25 12:10 01/08/25 12:00 NIH Stroke Scale [...] Cosigner Signature (if applicable): CC: ~ Signed [facility] Work Phone: 1(308) 559-650507-08-2025 Progress note [facility] Medical Records Department [address] [place] [address] Progress Note - Hospitalist 01/08/25 1849 MR#: [id number] Acct: [id number] Name: BERTA SANCHES Rep #:[id number] : 1945 79 From: Dianne Stovall DO PCP: JARROD Cantu Status:ADM I N Location: [place] [address] Reason for Visit Reason for Visit: Diagnoses [...] intervention for this. Patient was also hospitalized [facility] for congestive heart failure. 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 11:17 p.m. 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 OCCASIONALLY OTHER PLAQUES ARE SEEN BUT NON FLOW LIMITING. NO LARGE VESSEL OCCLUSION. Requested contact with the referring physician at 11:55 p.m. verbal report to charge nurse Melida at12:05 a.m. Reading Location: [facility] Carotid Duplex 01/08/25 05:04 Interpretation Summary Mild [...] NIHSS: Ischemic Stroke/TIA Start: 01/08/25 00:49 Freq: [id number] Status: Complete Protocol: Activity Type Activity Date Activity User E-sign Co-sign Detail Recorded Client Recorded Date Recorded By Document 01/08/25 03:22 [id number] 01/08/25 03:24 01/08/25 03:22 NIH Stroke Scale [...] and with change in RN caregiver. Freq: G2VMHEK Protocol: Activity Type Activity Date Activity User E-sign Co-sign Detail Recorded Client Recorded Date Recorded By Document 01/08/25 12:00 [id number] 01/08/25 12:10 01/08/25 12:00 NIH Stroke Scale [...] team: 35 minutes Visit Charges Inpatient E&M: 79458 Subs Hosp L2 01/09/25 1438 Cosigner Signature (if applicable): cc: ~* Signed [facility]07-08-2025 Progress note [facility] Medical Records Department [address] [place] [address] Progress Note - Hospitalist 01/09/25 1434 MR#: [id number] Acct: [id number] Name: BERTA SANCHES SCOTTIE Rep #:[id number] : 1945 79 From: Dianne Stovall DO PCP: JARROD Cantu Status:ADM I N Location: [place] [address] Reason for Visit Reason for Visit: Diagnoses [...] 35 minutes Charges/Coding Visit Charges Inpatient E&M: 80696 Subs Hosp L2 NIHSS NIHSS Nursing Documentation NIHSS Nursing Documentation: NIHSS: Ischemic Stroke/TIA Start: 01/08/25 00:49 Freq: [id number] Status: Complete Protocol: Activity Type Activity Date Activity User E-sign Co-sign Detail Recorded Client Recorded Date Recorded By Document 01/08/25 03:22 [id number] 01/08/25 03:24 01/08/25 03:22 NIH Stroke Scale [...] and with change in RN caregiver. Freq: Q3FDCVF Protocol: Activity Type Activity Date Activity User E-sign Co-sign Detail Recorded Client Recorded Date Recorded By Document 01/08/25 12:00 [id number] 01/08/25 12:10 01/08/25 12:00 NIH Stroke Scale [...] Cosigner Signature (if applicable): CC: ~ Signed [facility]07-08-2025 Progress note Author Jeremy Mcgarry [facility] Note Date/Time January 09, 2025 12:22 pm [facility] Medical Records Department [address] [place] [address] Progress Note 01/09/251220 MR#: [id number] Acct: [id number] Name: BERTA SANCHES Rep #:[id number] : 1945 79 From: Jeremy ferris MD PCP: JARROD Cantu Status:ADM I N Location: [place] [address] Progress Note patient was in bathroom today [...] Cosigner Signature (if applicable): CC: ~ Signed [facility] Work Phone: 1(176) 527-242907-08-2025 Progress note [facility] Medical Records Department [address] [place] [address] Progress Note 01/09/251220 MR#: [id number] Acct: [id number] Name: BERTA SANCHES Rep #:[id number] : 1945 79 From: Jeremy ferris MD PCP: Deysi Haagen, TENNIS INSTRUCTOR-C Status:ADM I N [facility] Note patient was in [...] Cosigner Signature (if applicable): CC: ~ Signed [facility]07-08-2025 Discharge summary Author Dianne Stovall [facility] Note Date/Time January 09, 2025 9:02a m [facility] Medical Records Department [address] [place] [address] Instructions for Home/Discharge Instructions 01/08/25 1536 MR#: [id number] Acct: [id number] Name: BERTA SANCHES Rep #:[id number] : [...] Hernandez MD [Non-Staff] - Deysi Collazo NP, TENNIS INSTRUCTOR-C [Primary Care Provider] - Disposition Disposition (needs filled in before D/C Order can be placed): Home, Self Care 01/09/25 0902<Electronically signed by Dianne Stovall DO>Dianne Stovall DO CC: Josefina Arrieta; Chelsi Pulido; TENNIS INSTRUCTOR-C Deysi Collazo; Jonathan Funez; Charley Berger MD; [...] Gates DO; Jessa Lee MD ~ Signed [facility] Work Phone: 1(191) 989-539207-08-2025 Discharge summary [facility] Medical Records Department [address] [place] [address] Instructions for Home/Discharge Instructions 01/08/25 1536 MR#: [id number] Acct: [id number] Name: BERTA SANCHSE Rep #:[id number] : 1945 79 From: [...] Hernandez MD [Non-Staff] - Deysi Collazo NP, TENNIS INSTRUCTOR-C [Primary Care Provider] - Disposition Disposition (needs filled in before D/C Order can be placed): Home, Self Care 01/09/25 0902Oakley Wilman CURRY CC: Josefina Arrieta; Chelsi Pulido; TENNIS INSTRUCTOR-C Deysi Collazo; Jonathan Funez; Charley Berger MD; [...] Gurpreet Geronimo MD; Dr. Noris Brock MD; aKryna Gates DO; Jessa Lee MD ~ [facility]07-07-2025 Consult note Author Jeremy Mcgarry [facility] Note Date/Time January 08, 2025 5:03p [facility] Medical Records Department [address] [place] [address] Consultation - Nephrology 01/08/25 1655 MR#: [id number] Acct: [id number] Name: BERTA SANCHES Rep #:[id number] : 1945 79 From: Jeremy ferris MD PCP: JARROD Cantu Status:ADM I N Location: [place] [address] Assessment & Plan Assessment/Plan (1) Chronic kidney disease, stage 3b: PLAN: Reviewed records from [facility] where her primary care physician is, from care everywhere from [facility] During her hospitalization in October,[facility] where she was admitted in December. 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 left-sided renal artery stenosis which was confirmed on repeat renal Doppler. She recently saw Dr. Shasta Sliva and no intervention was planned since it [...] complicated course recently. She is originally from [place], was in [place] for the winter, had a long hospitalization in [facility]. History of congestive heart failure with diastolic dysfunction, BNP has been consistently high. Was seeing cardiology at [facility]. Has been on diuretic, despite that worsening heart failure. Apparently gained more than 10 pounds. Baseline weight is around 140 pounds, went up to 154 pounds. Being started on Lasix drip. [facility] Medical History (Updated 01/08/25 @ [...] % (Auto) 47.3, Lymph % (Auto) 33.8, Stewart % (Auto) 15.5 H, Eos % (Auto) [...] to call report. 11:17 p.m. Reading Location: [facility] Head/Neck CTA 01/07/25 23:08 IMPRESSION: BILATERAL CALCIFIC PLAQUE, PRIMARILY AT THE BIFURCATION BILATERALLY LESS THAN 50% STENOSIS. OCCASIONALLY OTHER PLAQUES ARE SEEN BUT NON FLOW LIMITING. NO LARGE VESSEL OCCLUSION. Requested contact with the referring physician at 11:55 p.m. verbal report to charge nurse Melida at 12:05 a.m. Reading Location: [facility] Carotid Duplex 01/08/25 05:04 Interpretation Summary Mild (<50%) stenosis right extracranial internal carotid. Mild (<50%) stenosis left extracranial internal carotid. Patent and antegrade vertebrals bilaterally. Ordering Physician: Carla Ha Referring Physician: Deysi Collazo Performed By: Sony Perez, RVT 01/08/25 1703 <Electronically signed by Jeremy Mcgarry MD> Cosigner Signature (if applicable): CC: TENNIS INSTRUCTOR-C Deysi Collazo~ Signed [facility] Work Phone: 1(224) 347-295507-07-2025 Progress note Author Noris Brock [facility] Note Date/Time January 08, 2025 3:23p m [facility] Medical Records Department [address] [place] [address] Progress Note - Neurology 01/08/25 1514 MR#: [id number] Acct: [id number] Name: VERÓNICATAMERA MARTINSRA RUBIN Rep #:[id number] : 1945 79 From: Noris Brock MD PCP: JARROD Cantu Status:ADM I N Location: [place] [address] Objective Data Objective Data Vital Signs: Vital [...] % (Auto) 47.3, Lymph % (Auto) 33.8, Stewart % (Auto) 15.5 H, Eos % (Auto) [...] to call report. 11:17 p.m. Reading Location[facility] Head/Neck CTA 01/07/25 23:08 IMPRESSION: BILATERAL CALCIFIC PLAQUE, PRIMARILY AT THE BIFURCATION BILATERALLY LESS THAN 50% STENOSIS. OCCASIONALLY OTHER PLAQUES ARE SEEN BUT NON FLOW LIMITING. NO LARGE VESSEL OCCLUSION. Requested contact with the referring physician at 11:55 p.m. verbal report to charge nurse Melida at 12:05 a.m. Reading [facility] Carotid Duplex 01/08/25 05:04 Interpretation Summary Mild [...] NIHSS: Ischemic Stroke/TIA Start: 01/08/25 00:49 Freq: [id number] Status: Complete Protocol: Activity Type Activity Date Activity User E-sign Co-sign Detail Recorded Client Recorded Date Recorded By Document 01/08/25 03:22 [id number] 01/08/25 03:24 01/08/25 03:22 NIH Stroke Scale [...] and with change in RN caregiver. Freq: [id number] Protocol: Activity Type Activity Date Activity User E-sign Co-sign Detail Recorded Client Recorded Date Recorded By Document 01/08/25 12:00 [id number] 01/08/25 12:10 01/08/25 12:00 NIH Stroke Scale [...] 1 01/08/25 1523 <Electronically signed by Noris Brokc MD> Cosigner Signature (if applicable): CC: ~ Signed [facility] Work Phone: 1(729) 794-824307-07-2025 Consult note [facility] Medical Records Department [address] [place] [address] Consultation - Nephrology 01/08/25 1655 MR#: [id number] Acct: [id number] Name: BERTA SANCHES Rep #:[id number] : 1945 79 From: Jeremy ferris MD PCP: JARROD Cantu Status:ADM I N Location: [place] [address] Assessment & Plan Assessment/Plan (1) Chronic kidney disease, stage 3b: PLAN: Reviewed records from [facility] where her primary care physician is, from care everywhere from [facility] During her hospitalization in October,[facility] where she was admitted [facility]. 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 She also has left-sided renal [...] complicated course recently. She is originally from [place], was in [place] for the winter, had a long hospitalization in [facility]. History of congestive heart failure with diastolic dysfunction, BNP has been consistently high. Wasseeing cardiology at [facility]. Has been on diuretic, despite that worsening heart failure. Apparently gained more than 10 pounds. Baseline weight is around 140 pounds, went up to 154 pounds. Being started on Lasix drip. [facility] Medical History (Updated 01/08/25 @ [...] % (Auto) 47.3, Lymph % (Auto) 33.8, Stewart % (Auto) 15.5 H, Eos % (Auto) [...] to call report. 11:17 p.m. 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 OCCASIONALLY OTHER PLAQUES ARE SEEN BUT NON FLOW LIMITING. NO LARGE VESSEL OCCLUSION. Requested contact with the referring physician at 11:55 p.m. verbal report to charge nurse Melida at12:05 a.m. Reading Location: [facility] Carotid Duplex 01/08/25 05:04 Interpretation Summary Mild (<50%) stenosis right extracranial internal carotid. Mild (<50%) stenosis left extracranial internal carotid. Patent and antegrade vertebrals bilaterally. Ordering Physician: Carla Ha Referring Physician: Deysi Collazo Performed By: Sony Perez RVT 01/08/25 1703 Cosigner Signature (if applicable): CC: JARROD Collazo~ Signed [facility]07-07-2025 Progress note [facility] Medical Records Department [address] [place] [address] Progress Note - Neurology 01/08/25 1514 MR#: [id number] Acct: [id number] Name: BERTA SANCHES Rep #:[id number] : 1945 79 From: Noris Brock MD PCP: Deysi Collazo, TENNIS INSTRUCTOR-C Status:ADM I N Location: [place] [address] Objective Data Objective Data Vital Signs: Vital [...] % (Auto) 47.3, Lymph % (Auto) 33.8, Stewart % (Auto) 15.5 H, Eos % (Auto) [...] to call report. 11:17 p.m. Reading Location: [facility] Head/Neck CTA 01/07/25 23:08 IMPRESSION: BILATERAL CALCIFIC PLAQUE, PRIMARILY AT THE BIFURCATION BILATERALLY LESS THAN 50% STENOSIS. OCCASIONALLY OTHER PLAQUES ARE SEEN BUT NON FLOW LIMITING. NO LARGE VESSEL OCCLUSION. Requested contact with the referring physician at 11:55 p.m. verbal report to charge nurse Melida at12:05 a.m. Reading Location: [facility] Carotid Duplex 01/08/25 05:04 Interpretation Summary Mild [...] NIHSS: Ischemic Stroke/TIA Start: 01/08/25 00:49 Freq: [id number] Status: Complete Protocol: Activity Type Activity Date Activity User E-sign Co-sign Detail Recorded Client Recorded Date Recorded By Document 01/08/25 03:22 [id number] 01/08/25 03:24 01/08/25 03:22 NIH Stroke Scale [...] and with change in RN caregiver. Freq: [id number] Protocol: Activity Type Activity Date Activity User E-sign Co-sign Detail Recorded Client Recorded Date Recorded By Document 01/08/25 12:00 [id number] 01/08/25 12:10 01/08/25 12:00 NIH Stroke Scale [...] Cosigner Signature (if applicable): CC: ~ Signed [facility]07-07-2025 Progress note Author Carla Barksdale [facility] Note Date/Time January 08, 2025 1:58a m [facility] Medical Records Department [address] [place] [address] Progress Note - Hospitalist 01/07/25 8576 MR#: [id number] Acct: [id number] Name: BERTA SANCHES SCOTTIE Rep #:[id number] : 1945 79 From: Carla Rashid DO PCP: JARROD Cantu Status:ADM I N Location: [place] [address] Hospitalist Note Stroke alert was called overhead [...] in 24 hours as per neurology recommendations. EAP CONSULTANT was updated with plan. [facility] Imaging Services [address] [place], [place] [address] STROKE Brain/Head without Cont MR#: [id number] Acct: [id number] Name: BERTA SANCHES Rep #: [id number] : 1945 F 79 From: Jonathan Paul DO PCP: JARROD Cantu Status: ADM IN Study: STROKE Brain/Head without Cont Date of Exam: 01/07/25 Exam# [id number] Ordering Dr: Carla Ha DO PROCEDURE: STROKE [...] to call report. 11:17 p.m. Reading Location: [facility] CC: JARROD Collazo; Dr. Carla de Shamir, DO ~ Maintenance Mechanic: Signed ----- [facility] Services [address] [place], [place] [address] STROKE CTA Head AND Neck W/Con MR#: [id number] Acct: [id number] Name: BERTA SANCHES SCOTTIE Rep #: [id number] : 1945 F 79 From: Jonathan Paul DO PCP: JARROD Cantu Status: ADM IN Study: STROKE CTA Head AND Neck W/Con Date of Exam: 01/07/25 Exam# [id number] Ordering Dr: Carla Ha DO PROCEDURE: STROKE [...] nurse Melida at 12:05 a.m. Reading Location: [facility] CC: JARROD Collazo; Dr. Carla Ha DO ~ Maintenance Mechanic: Signed 01/08/25 0158 <Electronically signed by Carla Ha DO> Cosigner Signature (if applicable): CC: ~ Signed [facility] Work Phone: 1(343) 337-671907-07-2025 Progress note [facility] Medical Records Department [address] [place] [address] Progress Note - Hospitalist 01/07/25 2335 MR#: [id number] Acct: [id number] Name: BERTA SANCHES SCOTTIE Rep #:[id number] : 1945 79 From: Carla Rashid DO PCP: JARROD Cantu Status:ADM I N Location: [place] [address] Hospitalist Note Stroke alert was called overhead [...] in 24 hours as per neurology recommendations. EAP CONSULTANT was updated with plan. [facility] Services [address] [place] [address] STROKE Brain/Head without Cont MR#: [id number] Acct: [id number] Name: BERTA SANCHES SCOTTIE Rep #: [id number] : 1945 F 79 From: Jonathan Paul DO PCP: JARROD Cantu Status: ADM IN Study: STROKE Brain/Head without Cont Date of Exam: 01/07/25 Exam# [id number] Ordering Dr: Carla Ha DO PROCEDURE: STROKE [...] to call report. 11:17 p.m. Reading Location: [facility] CC: JARROD Collazo; Dr. Carla Ha DO ~ Maintenance Mechanic: Signed [facility] [address] [place] [address] STROKE CTA Head AND Neck W/Con MR#: [id number] Acct: [id number] Name: BERTA SANCHES Rep #: [id number] : 1945 F 79 From: Jonathan Paul DO PCP: JARROD Cantu Status: ADM IN Study: STROKE CTA Head AND Neck W/Con Date of Exam: 01/07/25 Exam# [id number] Ordering Dr: Carla Ha DO PROCEDURE: STROKE [...] charge nurse Melida at12:05 a.m. Reading Location: [facility] CC: JARROD Collazo; Dr. Carla Ha DO ~ Maintenance Mechanic: Signed 01/08/25 0158 Cosigner Signature (if applicable): CC: ~ Signed [facility]07-07-2025 Radiology Diagnostic study note [facility] [address] [place] [address] STROKE CTA Head AND Neck W/Con MR#: [id number] Acct: [id number] Name: BERTA SANCHES SCOTTIE Rep #: [id number] : 1945 F 79 From: Pet er Humberto CURRY PCP: Deysi Haagen, TENNIS INSTRUCTOR-C Status: ADM I N Study:STROKE CTA Head AND Neck W/Con Date of Exam: 01/07/25 Exam# [id number] Ordering Dr: Carla Rayo DO PROCEDURE: STROKE [...] charge nurse Melida at12:05 a.m. Reading Location: [facility] CC: TENNIS INSTRUCTORSammy Collazo; Dr. Carla Ha DO ~ Maintenance Mechanic: Signed [facility]07-06-2025 Radiology Diagnostic study note [facility] [address] [place], [place] [id number] STROKE Brain/Head without Cont MR#: [id number] Acct: [id number] Name: BERTA SANCHES Rep #: [id number] : 1945 F 79 From: Pet er Peer PCP: JARROD Cantu Status: ADM I N Study:STROKE Brain/Head without Cont Date of Exam: 01/07/25 Exam# [id number] Ordering Dr: Carla Rayo DO PROCEDURE: STROKE [...] to call report. 11:17 p.m. Reading Location: [facility] CC: JARROD Collazo; Dr. Carla Ha DO ~ Maintenance Mechanic: Signed [facility]07-06-2025 Discharge summary Author Sheree Simmons [facility] Note Date/Time January 07, 2025 5:04p m [facility] Medical Records Department [address] [place] [address] Emergency Department Summary 01/07/25 MR#: [id number] Acct: [id number] Name: BERTA SANCHES Rep #:[id number] : 1945 79 From: Sheree KING PCP: JARROD Cantu Status:ADM I N Location: [address] <FERNANDO Uriostegui - Last Filed: 01/07/25 [...] twice daily without improvement. She saw her [facility] clinic harvesting manager Dr. Burdick on January 01. He [...] is from allergies but no significant cough. [facility] <FERNANDO Uriostegui - Last Filed: 01/07/25 16:48> [facility] Medical History (Updated 01/07/25 @ [...] Oxygen Delivery Method Room Air Room Air [facility] <FERNANDO Uriostegui - Last Filed: 01/07/25 16:48> [facility] Narrative Medical decision making narrative: History gathered [...] dose of Lasix as instructed by her harvesting manager without improvement. She is awake alertno [...] failure. 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 She was hospitalized for 23days. She is followed by harvesting manager through the [facility]. She statesshe has difficulty contacting him and seeing him. She was offered option to follow-up with harvesting manager in [place]. Patient denies fever, chills night sweats. Patient [...] % (Auto) 59.8 Lymph % (Auto) 24.2 Stewart % (Auto) 12.9 H Eos % (Auto) [...] Hr 68 H* [place] [address] H Radiography Diagnostic Testing: Clinical Impression(s) from Imaging Studies Chest X-Ray 01/07/25 13:19 IMPRESSION: Findings consistent with mild congestive heart failure. Reading Location: [id number] ED attending interpretation of 2 view chest x-ray shows mild congestive heart failure. EKG Initial EKG: Attestation: I personally reviewed and interpreted this EKG as follows: Interpretation: No Acute Injury Pattern and Atrial Fibrillation Comments: Atrial fibrillation at 77 bpm, occasional ventricular paced complexes Left anterior fascicular block Nonspecific ST changes, no STEMI <Dr. Luis Armando Harry MD - Last Filed: 01/07/25 17:04> [facility] MDM Narrative Medical decision making narrative: History gathered from: Patient and spouse 79-year-old female presents with several weeks of dyspnea and bilateral lower extremity edema. She has had tight swelling from both thighs and down for several weeks. Over the last 5 days she has been taking an increased dose of Lasix as instructed by her harvesting manager without improvement. She is awake alertno [...] failure. 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 She was hospitalized for 23days. She is followed by harvesting manager through the [facility]. She statesshe has difficulty contacting him and seeing him. She was offered option to follow-up with harvesting manager in [place]. Patient denies fever, chills night sweats. Patient [...] % (Auto) 59.8 Lymph % (Auto) 24.2 Stewart % (Auto) 12.9 H Eos % (Auto) [...] Hr 68 H* [place] [address] H Radiography Diagnostic Testing: Clinical Impression(s) from Imaging Studies Chest X-Ray 01/07/25 13:19 IMPRESSION: Findings consistent with mild congestive heart failure. Reading Location: [id number] Management Discussion w/another healthcare provider: Hospitalist (Documented [...] your Primary Care Provider. Call [facility] ([phone]) or report to the closest Emergency Room. Call 911 if necessary. 01/07/25 1648 <Electronically signed by Sheree KING> Cosigner Signature (if applicable): 01/07/25 1704 <Electronically signed by Romel UGARTE> CC: TENNIS INSTRUCTOR-C Deysi Collazo ~ Signed [facility] Work Phone: 1(201) 199-656707-06-2025 History and physical note Author Radha Heller [facility] Note Date/Time January 07, 2025 4:35p m [facility] Medical Records Department [address] [place] [address] H&P Exam - Hospitalist 01/07/25 1629 MR#: [id number] Acct: [id number] Name: BERTA SANCHES SCOTTIE Rep #:[id number] [...] post Watchman device, congestive heart failure presented [facility] ED 01/07/2025 with several weeks of [...] without improvement. 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 ROS otherwise negative [facility] Medical History Anxiety Brain aneurysm [...] % (Auto) 59.8, Lymph % (Auto) 24.2, Stewart % (Auto) 12.9 H, Eos % (Auto) [...] Sens 71 H*, [place] [address] H 01/07/25 14:54: Troponin T Hi Sens 2 Hr 68 H* Imaging Radiology Impression Chest X-Ray 01/07/25 13:19 IMPRESSION: Findings consistent with mild congestive heart failure. Reading Location: [id number] Assessment & Plan Assessment/Plan (1) CHF exacerbation: [...] Heller MD Charges/Coding Visit Charges Inpatient E&M: 56496 Init Hosp L2 01/07/25 1635 <Electronically signed by Radha Heller MD> Cosigner Signature (if applicable): CC: JARROD Collazo; Dr. Radha Heller MD~ Signed [facility] Work Phone: 1(150) 840-234907-06-2025 Evaluation note* Diagnosis Onset Date Resolution Status Admit Date MONIQUE (acute kidney injury) acute January 07, 2025 4:29pm CHF exacerbation acute January 4:29pm Chronic kidney disease, stage 3b acu te January 07, 2025 4:29pm [facility] Work Phone: 1(747) 499-420007-06-2025 Evaluation note* Diagnosis Onset Date Resolution Status Admit Date Chronic kidney disease, stage 3b acu te January 07, 2025 4:29pm MONIQUE (acute kidney injury) inactive January 07, 2025 4:29pm CHF exacerbation inactive January 4:29pm [facility] Work Phone: 1(162) 863-496807-06-2025 Evaluation note* Diagnosis Onset Date Resolution Status Admit Date Chronic kidney disease, stag e 3b acute January 07, 2025 4 :29pm MONIQUE (acute kidney injury) inactive January 07, 2025 4:29pm CHF exacerbation inactive January 4:29pm Chronic renal failure (CRF), stage 3b acute February 05, 2025 8:53am [facility] Work Phone: 1(488) 310-107707-06-2025 Evaluation note* Diagnosis Onset Date Resolution Status [...] atrial fibrillation) chronic February 05, 2025 8:53am [facility] Work Phone: 1(153) 937-388907-06-2025 Evaluation note* Diagnosis Onset Date Resolution Status [...] acute February 08, 20[address] 9:[address] 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 april March 01, 2025 8:49am PAF (paroxysmal atrial fibrillation) chronic March 01 8:49am [facility] Work Phone: 1(294) 248-481307-06-2025 Evaluation note* Diagnosis Onset Date Resolution Status [...] 8:57am Anemia noneactive March 13, 2025 1:46pm [place] [employer] Work Phone: 1(835) 885-769607-06-2025 Evaluation note* Diagnosis Onset Date Resolution Status [...] atrial fibrillation) chronic March 15, 2025 11:00am [facility] Work Phone: [phone]) [phone] Evaluation note* Diagnosis Onset Date Resolution Status [...] (paroxysmal atrial fibrillation) March 29, 2025 11:00am [facility] Work Phone: 1(276) 287-199107-06-2025 Evaluation note* Diagnosis Onset Date Resolution Status [...] (paroxysmal atrial fibrillation) chronic April 05 10:53am [facility] Work Phone: 1(326) 884-689707-06-2025 Discharge summary [facility] Medical Records Department [address] [place] [address] Emergency Department Summary 01/07/25 MR#: [id number] Acct: [id number] Name: TAMERA SANCHESRA RUBIN Rep #:[id number] : 1945 79 From: Sheree KING PCP: JARROD Cantu Status:ADM I N Location: [place] [address] HPI History of Present Illness Chief Complaint: [...] wice daily without improvement. She saw her [facility] harvesting manager Dr. Burdick on January 01. He [...] is from allergies but no significant cough. [facility] Medical History (Updated 01/07/25 @ 17:04 [...] dose of Lasix as instructed by her harvesting manager without improvement. She is awake alertno [...] failure. 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 She was hospitalized for 23days. She is followed by harvesting manager through the [facility]. She statesshe has difficulty contacting him and seeing him. She was offered option to follow-up with harvesting manager in [place]. Patient denies fever, chills night sweats. Patient [...] % (Auto) 59.8 Lymph % (Auto) 24.2 Stewart % (Auto) 12.9 H Eos % (Auto) [...] Hr 68 H* [place] [address] H Radiography Diagnostic Testing: Clinical Impression(s) from Imaging Studies Chest X-Ray 01/07/25 13:19 IMPRESSION: Findings consistent with mild congestive heart failure. Reading Location: [id number] ED attending interpretation of 2 view chest [...] dose of Lasix as instructed by her harvesting manager without improvement. She is awake alertno [...] failure. 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 She was hospitalized for 23days. She is followed by harvesting manager through the [facility]. She statesshe has difficulty contacting him and seeing him. She was offered option to follow-up with harvesting manager in [place]. Patient denies fever, chills night sweats. Patient [...] % (Auto) 59.8 Lymph % (Auto) 24.2 Stewart % (Auto) 12.9 H Eos % (Auto) [...] Hr 68 H* [place] [address] H Radiography Diagnostic Testing: Clinical Impression(s) from Imaging Studies Chest X-Ray 01/07/25 13:19 IMPRESSION: Findings consistent with mild congestive heart failure. Reading Location: [facility] Management Discussion w/another healthcare provider: Hospitalist (Documented [...] your Primary Care Provider. Call [facility] ([phone]) or report tothe closest Emergency Room. Call 911 if necessary. 01/07/25 1648 Cosigner Signature (if applicable): 01/07/25 1704 CC: JARROD Collazo ~ Signed [facility]07-06-2025 History and physical note [facility] Medical Records Department [address] [place] [address] H&P Exam - Hospitalist 01/07/25 1620 MR#: [id number] Acct: [id number] Name: BERTA SANCHES Rep #:[id number] : [...] post Watchman device, congestive heart failure presented [facility] 01/07/2025 with several weeks of shortness of [...] without improvement. She recently followed with her [facility] harvesting manager with increase in her Lasix by mouth but has not had improvement. Patient is having somewhat shortness of breath on exertion that she is having difficulty with her ADLs and notes her legs feel so tight and swollen that she has difficulty bending over tochange her close/completing ADLs. In the ED [id number], heart rate 78 with blood pressure 135/57, [...] bowel or bladder changes. ROS otherwise negative [facility] Medical History Anxiety Brain aneurysm [...] % (Auto) 59.8, Lymph % (Auto) 24.2, Stewart % (Auto) 12.9 H, Eos % (Auto) [...] Sens 71 H*, [place] [address] H 01/07/25 14:54: Troponin T Hi Sens 2 Hr 68 H* Imaging Radiology Impression Chest X-Ray 01/07/25 13:19 IMPRESSION: Findings consistent with mild congestive heart failure. Reading Location: [id number] Assessment & Plan Assessment/Plan (1) CHF exacerbation: [...] Heller MD Charges/Coding Visit Charges Inpatient E&M: 82693 Init Hosp L2 01/07/25 1635 Cosigner Signature (if applicable): CC: JARROD Collazo; Dr. Radha Heller MD~ Signed [facility]07-06-2025 Radiology Diagnostic study note [facility] Imaging Services [address] [place], [place] [address] Chest PA and Lateral MR#: [id number] Acct: [id number] Name: BERTA SANCHES Rep #: [id number] : 1945 F 79 From: Nahum Trinidad MD PCP: JARROD Cantu Status: REG E R Study:Chest PA and Lateral Date of Exam: 01/07/25 Exam# [id number] Ordering Dr: Sheree Haynes PROCEDURE: CHEST PA [...] with mild congestive heart failure. 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 She saw her [facility] clinic harvesting manager Dr. Burdick on January 01. He [...] <FERNANDO Uriostegui - Last Filed: 01/07/25 16:48> [facility] Medical History (Updated 01/07/25 @ [...] Oxygen Delivery Method Room Air Room Air [facility] <FERNANDO Uriostegui - Last Filed: 01/07/25 16:48> [facility] Narrative Medical decision making narrative: History gathered [...] dose of Lasix as instructed by her harvesting manager without improvement. She is awake alertno [...] failure. 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 She was hospitalized for 23days. She is followed by harvesting manager through the [facility]. She statesshe has difficulty contacting him and seeing him. She was offered option to follow-up with harvesting manager in [place]. Patient denies fever, chills night sweats. Patient [...] % (Auto) 59.8 Lymph % (Auto) 24.2 Stewart % (Auto) 12.9 H Eos % (Auto) [...] Hr 68 H* [place] [address] H Radiography Diagnostic Testing: Clinical Impression(s) from Imaging Studies Chest X-Ray 01/07/25 13:19 IMPRESSION: Findings consistent with mild congestive heart failure. Reading Location: [id number] ED attending interpretation of 2 view chest x-ray shows mild congestive heart failure. EKG Initial EKG: Attestation: I personally reviewed and interpreted this EKG as follows: Interpretation: No Acute Injury Pattern and Atrial Fibrillation Comments: Atrial fibrillation at 77 bpm, occasional ventricular paced complexes Left anterior fascicular block Nonspecific ST changes, no STEMI <Dr. Luis Armando Harry MD - Last Filed: 01/07/25 17:04> [facility] MDM Narrative Medical decision making narrative: History gathered from: Patient and spouse 79-year-old female presents with several weeks of dyspnea and bilateral lower extremity edema. She has had tight swelling from both thighs and down for several weeks. Over the last 5 days she has been taking an increased dose of Lasix as instructed by her harvesting manager without improvement. She is awake alertno [...] failure. 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 She was hospitalized for 23days. She is followed by harvesting manager through the [facility]. She statesshe has difficulty contacting him and seeing him. She was offered option to follow-up with harvesting manager in [place]. Patient denies fever, chills night sweats. Patient [...] % (Auto) 59.8 Lymph % (Auto) 24.2 Stewart % (Auto) 12.9 H Eos % (Auto) [...] Hr 68 H* [place] [address] H Radiography Diagnostic Testing: Clinical Impression(s) from Imaging Studies Chest X-Ray 01/07/25 13:19 IMPRESSION: Findings consistent with mild congestive heart failure. Reading Location: [facility] Management Discussion w/another healthcare provider: Hospitalist (Documented [...] your Primary Care Provider. Call [facility] ([phone]) or report to the closest Emergency Room. Call 911 if necessary. 01/07/25 1648 <Electronically signed by Sheree KING> Cosigner Signature (if applicable): 01/07/25 1704 <Electronically signed by Romel UGARTE> CC: JARROD Collazo ~ Signed [facility] Work Phone: 1(694) 832-534506-30-2025 Instructions* Patient Instructions* Carla Burdick MD - 01/01/2025 11:12 AM EDT I have written you for lasix 40 mg pills Take two in the morning (80 mg) and one (40 mg) in the afternoon for this week Wed-Wednesday Repeat blood work next wednesday documented in this encounterHocking [facility]06-30-[facility] History of Present illness Narrative* Caral Burdick MD - 01/01/2025 11:00 AM EDT Images from the original note were not included. [facility] SECTION OF REGIONAL CARDIOLOGY Cardiology ([facility]) [address] [facility] [id number] OUTPATIENT VISIT DATE 01/01/2025 PRIMARY CARE PHYSICIAN: Gerard Le [address] [place] [address] HISTORY OF PRESENT ILLNESS: Ms. Sanches is a 79 year old woman with a history of remote aortic valve replacement with homograft in 1996 and possible repair of the ascending aorta, chronic diastolic congestive heart failure, hypertension, dyslipidemia, atrial fibrillation with history of pulmonary vein isolation procedures, pacemaker placement and watchman procedure who presents for follow-up. Patient was admitted to [facility]. She was discharged after 2 days. [...] (HCC) Pedro aneurysm of anterior communicating artery ([facility]) Dr. 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 Lua PACEMAKER 10/2019 PART. HYSTERECTOMY W/WO RMVL OVARIES/TUBES 1974 h/o cervical cancer ovaries remain PAST SURGICAL HISTORY OF 1996 Aortic valve repair, Dr. Apodaca PAST SURGICAL HISTORY OF 2001 [address] Beltrán, [facility] PAST SURGICAL HISTORY OF 2016 [...] CARDIOVASCULAR MEDICINE TESTING: Right Heart Catheterization [facility] 10/24/2024: Cardiac output (Qs) !4.1L/min ! + [...] !SVR !1650dyn-sec/cm5 ! + + + !SVRI !2297tpv-afv-r^2/cm5 ! + + + !PVR !544dyn-sec/cm5 ! + + + !PVRI !602jmw-eyg-d^2/cm5 ! + + + !Total systemic resistance!2097dyn-sec/cm5, 9284dbd-nsf-p^2/cm5! Echocardiogram [facility] 10/03/2024: 1. Left ventricle: [...] or suggestive of Atrial Fibrillation * AT/AF [place]: 67.8% * Total number of events: 2774 Tachycardia: AF w/RVR * Stored EGMs listed as NSVT AND SVT are consistent with or suggestive of Atrial Fibrillation with Rapid Ventricular Response * AT/AF [place]: 67.8% * Total episodes: 9 * Longest [...] She underwent SMA stent placement at [facility] September 2024. She has been treated for [...] daily. Carla Burdick MD documented in this encounterHocking Valley Community Hospital06-30-2025 NoteHNO ID: [id number] Author: CARLA BURDICK MD Service: ? Author Type: Physician Type: Progress Notes Filed: 01/01/2025 12:27 Note Text: [facility] SECTION OF REGIONAL CARDIOLOGY Cardiology ([facility]) [address] [facility] [id number] OUTPATIENT VISIT DATE 01/01/2025 PRIMARY CARE PHYSICIAN: Gerard Le [address] [place] [address] HISTORY OF PRESENT ILLNESS: Ms. Sanches is a 79 year old woman with a history of remote aortic valve replacement with homograft in 1996 and possible repair of the ascending aorta, chronic diastolic congestive heart failure, hypertension, dyslipidemia, atrial fibrillation with history of pulmonary vein isolation procedures, pacemaker placement and watchman procedure who presents for follow-up. Patient was admitted to [facility]. She was discharged after 2 days. 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 Lua PACEMAKER 10/2019 PART. HYSTERECTOMY W/WO RMVL OVARIES/TUBES 1974 h/o cervical cancer ovaries remain PAST SURGICAL HISTORY OF 1996 Aortic valve repair, Dr. Apodaca PAST SURGICAL HISTORY OF 2001 [address] Beltrán, [facility] PAST SURGICAL HISTORY OF 2015 [...] mg iron) tabl (more content not included)... [facility]06-24-2025 Telephone encounter Note* Telephone Encounter - Albin [...] answered at this time. Albin Gu APRN.CNP [facility]06-[facility] Miscellaneous Notes* Telephone Encounter - Albin Gu [...] All questions answered at this time. Albin uG APRN.CNP documented in this encounterHocking Valley Community Hospital06-18-2025 NoteHNO ID: [id number] Author: LARS SILVA, DO Service: ? Author Type: Physician Type: Progress Notes Filed: 12/20/2024 17:56 Note Text: Heart , Vascular and Thoracic [place] DEPARTMENT OF VASCULAR SURGERY OUTPATIENT VISIT DATE [...] in September. She was recently admitted to [place] for anemia. She has noted increased swelling. 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 Lua PACEMAKER 10/2019 PART. HYSTERECTOMY W/WO RMVL OVARIES/TUBES 1973 h/o cervical cancer ovaries remain PAST SURGICAL HISTORY OF 1996 Aortic valve repair, Dr. Apodaca PAST SURGICAL HISTORY OF 2001 [address] Beltrán, [facility] PAST SURGICAL HISTORY OF 2015 [...] procedure on 01/12/22, sheila (more content not included)...[facility]06-18-2025 History of Present illness Narrative* Lars Silva, DO - 12/20/2024 8:53 AM EDT Images from the original note were not included. Heart , Vascular and Thoracic [place] DEPARTMENT OF VASCULAR SURGERY OUTPATIENT VISIT DATE [...] in September. She was recently admitted to [place] for anemia. She has noted increased swelling. 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 Lua PACEMAKER 10/2019 PART. HYSTERECTOMY W/WO RMVL OVARIES/TUBES 1974 h/o cervical cancer ovaries remain PAST SURGICAL HISTORY OF 1996 Aortic valve repair, Dr. Apodaca PAST SURGICAL HISTORY OF 2001 [address] Beltrán, [facility] PAST SURGICAL HISTORY OF 2015 [...] 2024 TIME: 8:53 AM documented in this encounterHocking Valley Community Hospital06-17-2025 NoteHNO ID: [id number] Author: GWEN VALENTINE RN Service: ? Author [...] bleeding or swelling noted. Pt tolerated well. [facility] HospitalEmxacghr[facility]-5184 History of Present illness Narrative* Gwen Valentine [...] note were not included. Heart [facility] Vascular [place] [facility] Heart Failure Clinic OUTPATIENT VISIT DATE [...] overloaded and was worried about [place] to [place] in a few days. Discussed with her taking lasix as it was prescribed. As her spironolactone was stopped, did advise patient restart this at 25 mg once a day for four days only. She was instructed to call office in a week to review symptoms. On 10/15, patient presented back to [facility] for gastrointestinal bleed. She had a colonoscopy [...] and entresto. The patient wished to leave [place] so she could return to [place]. Cardiology and Pulmonary agreed with discharge. 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 Lua PACEMAKER 10/2019 PART. HYSTERECTOMY W/WO RMVL OVARIES/TUBES 1973 h/o cervical cancer ovaries remain PAST SURGICAL HISTORY OF 1996 Aortic valve repair, Dr. Apodaca PAST SURGICAL HISTORY OF 2001 [address] Beltrán, [facility] PAST SURGICAL HISTORY OF 2015 [...] impression and interpretation as noted. Federico Hammonds [id number] DEVICE CHECK 10/04/2024: Tachycardia: AF * Stored EGMs are consistent with or suggestive of Atrial Fibrillation * AT/AF [place]: 67.8% * Total number of events: 2774 Tachycardia: AF w/RVR * Stored EGMs listed as NSVT AND SVT are consistent with or suggestive of Atrial Fibrillation with Rapid Ventricular Response * AT/AF [place]: 67.8% * Total episodes: 9 * Longest episode: 28 SECS * Fastest episode:207 BPM Remote Device Evaluation [employer] [facility] * Device type: DUAL LEAD PACEMAKER * Presenting Rhythm: AF/ VS * Battery Status: Battery is at OK, 9.83 yrs . * Atrial Arrhythmias: There have been 12 atrial detections. Anticoagulants listed: _LAAC____ * Ventricular Arrhythmias: There have been __0 TRUE_ ventricular detections. * Lead Measurements: Capture thresholds, sensing, and lead impedances are appropriate. 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 Medications reconciled at end of visit: yes I spent 40 minutes in this visit, with more than 50% of the time devoted to patient counseling. Recording using D1G software for draft documentation was discussed with patient/authorized territory representative. All questions were welcome and answered. Patient/authorized territory representative agreed toproceed. SIGNATURE: Albin Gu APRN.CNP PATIENT NAME: Berta Sanches DATE: December 19, 2024 TIME: 1100 documented in this encounterHocking Valley Community Hospital06-17-2025 NoteHNO ID: [id number] Author: ALBIN GU APRN.CNP Service: ? Author Type: Nurse Practitioner Type: Progress Notes Filed: 12/19/2024 11:45 Note Text: Heart and Vascular [place] [facility] Heart Failure Clinic OUTPATIENT VISIT DATE [...] and was worried about traveling home to [place] in a few days. Discussed with her taking lasix as it was prescribed. As her spironolactone was stopped, did advise patient restart this at 25 mg once a day for four days only. She was instructed to call office in a week to review symptoms. On 10/15, patient presented back to [facility] for gastrointestinal bleed. She had a colonoscopy [...] and entresto. The patient wished to leave [place] so she could return to [place]. Cardiology and Pulmonary agreed with discharge. Patient [...] monitoring her sodium intake (more content not included)...[facility] [id number] Instructions* Patient Instructions* Albin Gu APRN.JASPREET - [...] or concern, you can call me at [phone]. documented in this encounterHocking Valley Community Hospital06-11-2025 Telephone encounter Note * Telephone Encounter - Alex Gonzalez - 12/13/2024 9:28 AM EDT Transitional Care Management (TCM) [facility] Monitoring Program Provider Action / FYI: N/A SUMMARY: Outreach type: INITIAL OUTREACH Discharge Network Status: In-Network Discharge Source of Patient: [facility] TCM Discharge Report Patient discharged from [place] on December 12. Admitted for Acute on chronic diastolic CHF (congestive heart failure) (HCC). Contact made with patient: No - next outreach attempt will be on next business day. Alex Betancourt December 13, 2024 9:35 AM [facility]06-11[facility] Miscellaneous Notes* Telephone Encounter - Alex Gonzalez - 12/13/2024 9:28 AM EDT Transitional Care Management (TCM) [facility] Monitoring [facility] Provider Action / FYI: N/A SUMMARY: Outreach type: INITIAL OUTREACH Discharge Network Status: In-Network Discharge Source of Patient: [facility] TCM Discharge Report Patient discharged from [place] on December 12. Admitted for Acute on chronic diastolic CHF (congestive heart failure) (HCC). Contact made with patient: No - next outreach attempt will be on next business day. Alex Betancourt December 13, 2024 9:35 AM documented in this encounterHocking Valley Community Hospital06-10-2025 NoteHNO ID: [id number] Author: STACIE LONDONO RN Service: Care Management [...] Primary Care Physician Name/Phone: Deysi Collazo APRN.CNP [phone] Additional Information: na Discharge order written for today, patient discharged home with no services. Family will transport. SIGNATURE: Stacie Londono RN PATIENT NAME: Berta Sanches DATE: December 12, 2024 TIME: 9:13 [id number] Telephone encounter Note* Telephone Encounter - Deysi Collazo APRN.CNP - 12/11/2024 1:06 PM EDT Noted. Deysi Collazo APRN.CNP [facility]06-09-20[facility] Miscellaneous Notes* Telephone Encounter - Deysi Collazo APRN.CNP - 12/11/2024 1:06 PM EDT Noted. Deysi Collazo APRN.CNP * Telephone Encounter - Sigifredo Rivera LPN - 12/11/2024 11:15 AM EDT Pt re admitted to [facility]. Sigifredo Rivera LPN * Telephone Encounter - Marilyn Cesar - 12/11/2024 11:05 AM EDT Patient called to cancel hospital follow up due to re admission yesterday 12/10/2024 documented in this encounterHocking Valley Community Hospital06-09-2025 NoteHNO ID: [id number] Author: MAXIMINO JENNINGS RN Service: Care Management Author Type: Registered Nurse Type: Care Mgt Initial Assessment Filed: 12/11/2024 11:51 Note Text: CARE MANAGEMENT: ASSESSMENT AND DISCHARGE PLAN SERVICE DATE: December 11, 2024 SERVICE TIME: 11:50 AM PCP: Deysi Collazo APRN.CNP Primary Contact: Extended Emergency Contact Information Primary Emergency Contact: Natanael Sanches Address: [address] [place] [address] Mobile Relation: Spouse Admission Status: Inpatient Insurance Provider: [employer] MED[employer]ARE PPO Discharge Planning requested by: Per Department Practice Potential Transition Plans Home Advance Directives Current Advance Directive: Living Will, Health Care Power of Watch Repairer In Chart: No Current Living Arrangements and [...] None Discharge Planning Patient Goal(s): General wellness [place] of Choice Explained: [place] of Choice Given: No Reason Not Given: [...] assessment. 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 to transport upon DC. CM assigned will continue to follow for DC planning needs. SIGNATURE: Maximino Jennings RN PATIENT NAME: Berta Sanches DATE: December 11, 2024 TIME: 11:50 [facility] HospitalKjspmomb03-27-6908 NoteHNO ID: [id number] Author: JUAN DIEGO KNOWLES MD Service: Hospital [...] Diego Knowles MD DATE: 12/11/2024 TIME: 11:47 AMPark[facility] Montpelier HospitalSgszipmy21-88-3334 Telephone encounter Note* Telephone Encounter - Sigifredo Rivera LPN - 12/11/2024 11:15 AM EDT Pt re admitted to [facility]. Sigifredo Rivera LPN [facility]06-09-2025 Telephone encounter Note* Telephone Encounter - Marilyn Cesar - 12/11/2024 11:05 AM EDT Patient called to cancel hospital follow up due to re admission yesterday 12/10/2024 [facility]05-19-[facility] History of Present illness Narrative* Carla Burdick MD - 11/20/2024 8:00 AM EDT Images from the original note were not included. HEART AND VASCULAR INSTITUTE SECTION OF [facility] CARDIOLOGY Cardiology ([facility]) [address] [facility] [id number] OUTPATIENT VISIT DATE PRIMARY CARE PHYSICIAN: Gerard Le [address] [place] [address] HISTORY OF PRESENT ILLNESS: Ms. 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 Lua PACEMAKER 10/2019 PART. HYSTERECTOMY W/WO RMVL OVARIES/TUBES 1973 h/o cervical cancer ovaries remain PAST SURGICAL HISTORY OF 1996 Aortic valve repair, Dr. Apodaca PAST SURGICAL HISTORY OF 2001 [address] Beltrán, [facility] PAST SURGICAL HISTORY OF 2015 [...] CARDIOVASCULAR MEDICINE TESTING: Right Heart Catheterization [facility] 10/24/2024: Cardiac output (Qs) !4.1L/min ! + [...] !SVR !1650dyn-sec/cm5 ! + + + !SVRI !1448dia-xfr-l^2/cm5 ! + + + !PVR !544dyn-sec/cm5 ! + + + !PVRI !554pfi-xyq-e^2/cm5 ! + + + !Total systemic resistance!2097dyn-sec/cm5, 5172tis-ltc-r^2/cm5! Echocardiogram [facility] 10/03/2024: 1. Left ventricle: The cavity [...] or suggestive of Atrial Fibrillation * AT/AF [place]: 67.8% * Total number of events: 2774 Tachycardia: AF w/RVR * Stored EGMs listed as NSVT AND SVT are consistent with or suggestive of Atrial Fibrillation with Rapid Ventricular Response * AT/AF [place]: 67.8% * Total episodes: 9 * Longest [...] She underwent SMA stent placement at [facility] September 2024. She has been treated for [...] TABLET Carla Burdick MD documented in this encounterHocking Valley Community Hospital05-19-2025 NoteHNO ID: [id number] Author: CARLA BURDICK MD Service: ? Author Type: Physician Type: Progress Notes Filed: 11/20/2024 08:50 Note Text: [facility] SECTION OF REGIONAL CARDIOLOGY Cardiology ([facility]) [address] [facility] [address] OUTPATIENT VISIT DATE PRIMARY CARE PHYSICIAN: Gerard Le [address] [place] [address] HISTORY OF PRESENT ILLNESS: Ms. Sanches is [...] (HCC) Pedro aneurysm of anterior communicating artery ([facility]) Dr. Aaron [facility] Bilateral carotid artery stenosis 11/26/2016 05/27/16 moderate 50-69% stenosis right and left Bilateral pneumonia 07/20/2015 Cancer of cervix (HCC) Cervical cancer (HCC) 1973 Chest pain 06/01/2015 negative work up with nuclar stress CHF (congestive heart failure) ([facility]) Cholesteatoma of right ear surgical removal Chronic mastoiditis of left side Chronic renal failure, stage 3b ([facility]) 04/15/2022 Diabetes (HCC) Diabetes (HCC) GERD (gastroesophageal 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 Lua PACEMAKER 10/2019 PART. HYSTERECTOMY W/WO RMVL OVARIES/TUBES 1974 h/o cervical cancer ovaries remain PAST SURGICAL HISTORY OF 1996 Aortic valve repair, Dr. Apodaca PAST SURGICAL HISTORY OF 2001 [address] Beltrán, [facility] PAST SURGICAL HISTORY OF 2015 [...] tablet by mouth t (more content not included)...[facility]05-14-2025 Telephone encounter Note* Telephone Encounter - Mckenzie Rodriguez MA - 11/15/2024 3:39 PM EDT Scheduled. Mckenzie Rodriguez MA [facility]05-14-2025 Miscellaneous Notes* Telephone Encounter - Mckenzie Rodriguez [...] metabolic panel and BNP. documented in this encounterHocking Valley Community Hospital05-14-2025 Telephone encounter Note * Telephone Encounter - [...] repeat a basic metabolic panel and BNP. [facility]05-05-2025 Instructions* Patient Instructions* Crala Burdick MD - 11/06/2024 3:33 PM EDT We are changing the Furosemide to Torsemide 20 mg two times per day Stop taking the Losartan documented in this encounterHocking Valley Community Hospital05-05-2025 History of Present illness Narrative* Carla Burdick MD - 11/06/2024 2:40 PM EDT Images from the original note were not included. [facility] SECTION OF REGIONAL CARDIOLOGY Cardiology ([facility]) [address] [facility] [id number] OUTPATIENT VISIT DATE 11/06/2024 PRIMARY CARE PHYSICIAN: Gerard Le [address] [place] [address] HISTORY OF PRESENT ILLNESS: Ms. 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 Lua PACEMAKER 10/2019 PART. HYSTERECTOMY W/WO RMVL OVARIES/TUBES 1974 h/o cervical cancer ovaries remain PAST SURGICAL HISTORY OF 1996 Aortic valve repair, Dr. Apodaca PAST SURGICAL HISTORY OF 2001 [address] Beltrán, [facility] PAST SURGICAL HISTORY OF 2015 [...] CARDIOVASCULAR MEDICINE TESTING: Right Heart Catheterization [facility] 10/24/2024: Cardiac output (Qs) !4.1L/min ! + [...] !SVR !1650dyn-sec/cm5 ! + + + !SVRI !5436tjq-xmw-i^2/cm5 ! + + + !PVR !544dyn-sec/cm5 ! + + + !PVRI !966ads-ywe-z^2/cm5 ! + + + !Total systemic resistance!2097dyn-sec/cm5, 7446ypc-set-c^2/cm5! Echocardiogram [facility] 10/03/2024: 1. Left ventricle: The cavity size [...] or suggestive of Atrial Fibrillation * AT/AF [place]: 67.8% * Total number of events: 2774 Tachycardia: AF w/RVR * Stored EGMs listed as NSVT AND SVT are consistent with or suggestive of Atrial Fibrillation with Rapid Ventricular Response * AT/AF [place]: 67.8% * Total episodes: 9 * Longest [...] She underwent SMA stent placement at [facility] September 2024. She has been treated for [...] I65.23 Carla Burdick MD documented in this encounterHocking Valley Community Hospital05-05-2025 NoteHNO ID: [id number] Author: CARLA BURDICK MD Service: ? Author Type: Physician Type: Progress Notes Filed: 11/06/2024 17:01 Note Text: [facility] SECTION OF REGIONAL CARDIOLOGY Cardiology ([facility]) [address] [facility] [id number] OUTPATIENT VISIT DATE 11/06/2024 PRIMARY CARE PHYSICIAN: Gerard Le [address] [place] [address] HISTORY OF PRESENT ILLNESS: Ms. 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 Lua PACEMAKER 10/2019 PART. HYSTERECTOMY W/WO RMVL OVARIES/TUBES 1974 h/o cervical cancer ovaries remain PAST SURGICAL HISTORY OF 1996 Aortic valve repair, Dr. Apodaca PAST SURGICAL HISTORY OF 2001 [address] Beltrán, [facility] PAST SURGICAL HISTORY OF 2016 [...] Hypotension MEDICATIONS: clopidogrel (PLAVIX) (more content not included)...[facility] 11-03-2024 Telephone encounter Note* Telephone Encounter - Deysi Collazo APRN.CNP - 11/03/2024 4:29 PM EDT Looks like patient was seen today at heart failure clinic and had repeat labs. From notes, it lookslike patient continued to refuse ER. She has an appt w/ cardiology on Wednesday and is to repeat labs at that time. [facility]05-02-2025 Miscellaneous Notes* Telephone Encounter - Deysi Collazo [...] the ER. stated the "kidney doctor" at [facility] said her levels are not [...] patient in to the "heart center" at [facility] today for the IVF. He said [...] and Laboratory monitoring.Patient was not d/c'd from [facility], she left AMA. MONIQUE can cause terminal computer operator damage and if uncorrected patient could end [...] proceed to ER immediately. documented in this encounterHocking Valley Community Hospital05-02-2025 Telephone encounter Note * Telephone Encounter - [...] with plan of care. Albin Gu APRN.CNP [facility]05-02-2025 Miscellaneous Notes* Telephone Encounter - Albin Gu [...] care. Albin Gu APRN.JASPREET documented in this encounterHocking Valley Community Hospital05-02-2025 History of Present illness Narrative* Gwen Valentine [...] note were not included. Heart and Vascular [place] [facility] Heart Failure Clinic OUTPATIENT VISIT DATE [...] feeling fluid overloaded and [facility] [place] in a few days. Discussed with her taking lasix as it was prescribed. As her spironolactone was stopped, did advise patient restart this at 25 mg once a day for four days only. She was instructed to call office in a week to review symptoms. On 10/15, patient presented back to [facility] for gastrointestinal bleed. She had a colonoscopy [...] and entresto. The patient wished to leave [place] so she could return to [place]. Cardiology and Pulmonary agreed with discharge. Today, [...] call and discuss this with this HF TEXT TRANSCRIBER. Wearing lidocaine patch over site to right side of neck as she mentions having a temporary dialysisport in place during first hospitalization. This area was bothersome to her however, she does mention the discomfort is improving. Does not have a relationship manager at this time. 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 Lua PACEMAKER 10/2019 PART. HYSTERECTOMY W/WO RMVL OVARIES/TUBES 1973 h/o cervical cancer ovaries remain PAST SURGICAL HISTORY OF 1996 Aortic valve repair, Dr. Apodaca PAST SURGICAL HISTORY OF 2001 [address] Beltrán, [facility] PAST SURGICAL HISTORY OF 2015 [...] (H): Data is abnormally high OUTSIDE ECHO PLATINUM 10/04/2024: Study Conclusions 1. Left ventricle: The [...] impression and interpretation as noted. Federico Hammonds [id number] I have personally reviewed the Laboratory Testing and Echocardiogram. COUNSELING: We discussed the following non-pharmacological measures during this visit: Smoking and alcohol abstinence/cessation, if applicable Dietary and medication compliance Monitoring daily weights and blood pressures Exercise regimen When to call our office Heart Failure Education Booklet: Previously given. Discussed red flags and when to call MD/TENNIS INSTRUCTOR or [facility] ED. Medications reconciled at end of visit: yes I spent 60 minutes in this visit, with more than 50% of the time devoted to patient counseling. SIGNATURE: Albin Gu APRN.CNP PATIENT NAME: Berta Sanches DATE: November 03, 2024 TIME: 0855 documented in this encounterHocking Valley Community Hospital05-02-2025 NoteHNO ID: [id number] Author: GWEN VALENTINE RN Service: ? Author [...] No bleeding, no swelling noted. Pt tolerated well.[facility] HospitalHnfxheik55-12-9619 NoteHNO ID: [id number] Author: ALBIN GU APRN.JASPREET Service: ? Author Type: Nurse Practitioner Type: Progress Notes Filed: 11/03/2024 10:28 Note Text: Heart and Vascular [place] [facility] Heart Failure Clinic OUTPATIENT VISIT DATE [...] and was worried about traveling home to [place] in a few days. Discussed with her taking lasix as it was prescribed. As her spironolactone was stopped, did advise patient restart this at 25 mg once a day for four days only. She was instructed to call office in a week to review symptoms. On 10/15, patient presented back to [facility] for gastrointestinal bleed. She had a colonoscopy [...] and entresto. The patient wished to leave [place] so she could return to [place]. Cardiology and Pulmonary agreed with discharge. Today, [...] call and discuss this with this HF TEXT TRANSCRIBER. Wearing lidocaine patch over site to right side of neck as she mentions having a temporary dialysis port in place during first hospitalization. This area was bothersome to her however, she does mention the discomfort is improving. Does not have a relationship manager at this time. Can lay flat with [...] and kidney function sug (more content not included)...[facility] HospitalMttyjhwt08-34-1141 Instructions* Patient Instructions* Albin Gu APRN.JASPREET - [...] or concern, you can call me at [phone]. documented in this encounterHocking Valley Community Hospital05-01-2025 Telephone encounter Note * Telephone Encounter - Quin Lama MA - 11/02/2024 9:00 AM EDT Spoke with patient's , Natanael. Patient was in background listening. Relayed message below in detail. Reiterated need for ER for IVF and lab monitoring. Both patient and spouse again declined going to the ER. stated the "kidney doctor" at [facility] said her levels are not [...] patient in to the "heart center" at [facility] today for the IVF. He said [...] be ordered without appointment. Quin Lama MA [facility]04-30-2025 Telephone encounter Note* Telephone Encounter - Irma Hwang RN - 11/01/2024 1:52 PM EDT Patient scheduled for 11/06/24. Irma Hwang RN [facility]04-30-2025 Miscellaneous Notes* Telephone Encounter - Irma Hwang RN - 11/01/2024 1:52 PM EDT Patient scheduled for 11/06/24. Irma Hwang RN documented in this encounterHocking Valley Community Hospital04-29-2025 Telephone encounter Note * Telephone Encounter - Shaye Domingo APRN.CNP - 10/31/2024 4:46 PM EDT Creatinine is not improved and likely will not improve at home. Need IVF and Laboratory monitoring.Patient was not d/c'd from [facility], she left AMA. MONIQUE can cause fpc damage and if uncorrected patient could end [...] worse and not better if not corrected. [facility]04-29-2025 Telephone encounter Note* Telephone Encounter - Radha [...] Please review and advise, Radha Pyle RN [facility]04-29-2025 Telephone encounter Note* Telephone Encounter - Shaye Domingo APRN.CNP - 10/31/2024 1:35 PM EDT Left message for patient to return call. Patient's kidney function has gotten significantly worse and she needs to proceed to ER immediately. [facility]04-29-2025 NoteHNO ID: [id number] Author: SHAYE DOMINGO APRN.JASPREET Service: ? Author Type: Nurse Practitioner Type: Progress Notes Filed: 10/31/2024 12:52 Note Text: Chief Complaint Patient presents with: Hospital F/U [facility] Berta Sanches is a 79 year old female who presents here today for Above Complaints.. Acute Mesenteric Ischemia: - Initially admitted to [facility] on 10/02/2024. - Underwent femoral ultrasound-guided angiogram with angioplasty and stenting of the SMA. - Required CRRT for MONIQUE post-op. - Developed AFib with RVR post-op. - Discharged after 23-day hospitalization. Acute on Chronic Heart Failure: - Given IV Lasix during initial admission. 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 Lua PACEMAKER 10/2019 PART. HYSTERECTOMY W/WO RMVL OVARIES/TUBES 1974 h/o cervical cancer ovaries remain PAST SURGICAL HISTORY OF 1996 Aortic valve repair, Dr. Apodaca PAST SURGICAL HISTORY OF 2001 [address] Beltrán, [facility] PAST SURGICAL HISTORY OF 2016 [...] 24 hr tablet Take (more content not included)...[facility]04-29-2025 History of Present illness Narrative* Shaye Domingo, TERI.SOCIAL SCIENCE INSTRUCTOR - 10/31/2024 11:11 AM EDT Chief Complaint Patient presents with: Hospital F/U [facility] Berta Sanches is a 79 year old female who presents here today for Above Complaints.. Acute Mesenteric Ischemia: - Initially admitted to [facility] on 10/02/2024. - Underwent femoral ultrasound-guided angiogram with angioplasty and stenting of the SMA. - Required CRRT for MONIQUE post-op. - Developed AFib with RVR post-op. - Discharged after 23-day hospitalization. Acute on Chronic Heart Failure: - Given IV Lasix during initial admission. 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 Lua PACEMAKER 10/2019 PART. HYSTERECTOMY W/WO RMVL OVARIES/TUBES 1974 h/o cervical cancer ovaries remain PAST SURGICAL HISTORY OF 1996 Aortic valve repair, Dr. Apodaca PAST SURGICAL HISTORY OF 2001 2001 and [address] Beltrán, [facility] PAST SURGICAL HISTORY OF 2015 [...] CONSULT TO PHYSICAL THERAPY - CONSULT TO BLACK POWDER GLAZING OPERATOR 6. Acute on chronic diastolic congestive heart failure (HCC) - ICD9: 428.33, 428.0, ICD10: I50.33 - HFpEF 50+ - Compensated - Continue current medications - Encouraged sodium restriction - Encouraged daily weights - Call if 3 lbs gained in 1 days - Will contact Dr. Burdick's office for sooner follow up to discuss recommendations from cardiology/nephrology from [facility]. 7. Hospital discharge follow-up - ICD9: V67.59, ICD10: Z09 -23 days inpatient at [facility]. Shaye Domingo APRN.CNP documented in this encounterHocking Valley Community Hospital04-10-2025 Telephone encounter Note * Telephone Encounter - [...] answered at this time. Albin Gu APRN.CNP [facility]04-10-2025 Miscellaneous Notes* Telephone Encounter - Albin Gu [...] time. Albin Gu APRN.CNP documented in this encounterHocking Valley Community Hospital01-27-2025 Telephone encounter Note * Telephone Encounter - Melida Koo APRN.CNP - 07/31/2024 11:54 AM EST Pt called to request refill for KDur as she has run out of prescription. She states that she is currently in [place] and will be in [place] until October. [facility] called in [place], [place]. Spoke with Pharmacist on duty. Rx for KDur 10 meq PO daily given verbally #90 with no refills. Melida Koo APRN.CNP [facility] Work Phone: [phone]) 396-370501-27-2025 Miscellaneous Notes* Telephone Encounter - Melida Koo APRN.CNP - 07/31/2024 11:54 AM EST Pt called to request refill for KDur as she has run out of prescription. She states that she is currently in [place] and will be in [place] until October. [facility] called in [place], [place]. Spoke with Pharmacist on duty. Rx for KDur 10 meq PO daily given verbally #90 with no refills. Melida Koo APRN.SOCIAL SCIENCE INSTRUCTOR documented in this encounterHocking Valley Community Hospital01-03-2025 NoteHNO ID: [id number] Author: SIGIFREDO RIVERA LPN Service: ? Author [...] membrane assessed by LIP pre and post procedureUniversity [facility]als [facility]01-03-2025 NoteHNO ID: [id number] Author: DEYSI COLLAZO APRN.CNP Service: ? Author Type: Nurse Practitioner Type: Progress Notes Filed: 07/07/2024 12:41 Note Text: This is a 78 year old female who presents today with: Patient presents with: Establish Care HISTORY OF PRESENT ILLNESS: Berta Sanches is a 78 year old female. Patient presents with: Establish Care Pt presents [facility] to [facility]. 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 Lua PACEMAKER 10/2019 PART. HYSTERECTOMY W/WO RMVL OVARIES/TUBES 1974 h/o cervical cancer ovaries remain PAST SURGICAL HISTORY OF 1996 Aortic valve repair, Dr. Apodaca PAST SURGICAL HISTORY OF 2001 [address] Beltrán, [facility] PAST SURGICAL HISTORY OF 2015 [...] Type 2 DM - (more content not included)...[facility]10-04-2024 Instructions* Patient Instructions* Albin Gu APRN.SOCIAL SCIENCE INSTRUCTOR - 04/07/2024 9:18 AM EDT Continue current [...] or concern, you can call me at [phone]. documented in this encounterHocking Valley Community Hospital10-04-2024 History of Present illness Narrative* Albin Gu APRN.CNP - 04/07/2024 9:00 AM EDT Images from the original note were not included. Heart and Vascular [place] [facility] Heart Failure Clinic OUTPATIENT VISIT DATE [...] a boat and take it out on [place] to fish. 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 Lua PACEMAKER 10/2019 PART. HYSTERECTOMY W/WO RMVL OVARIES/TUBES 1974 h/o cervical cancer ovaries remain PAST SURGICAL HISTORY OF 1996 Aortic valve repair, Dr. Apodaca PAST SURGICAL HISTORY OF 2001 [address] Beltrán, [facility] PAST SURGICAL HISTORY OF 2016 [...] * Heart Rate Histograms reviewed AP 45%, ORNAMENTAL METAL WORKER 10.4% Title: Tachycardia: AF * Stored EGMs are consistent with or suggestive of Atrial Fibrillation * AT/AF [place]: 38.7% * Total number of events: 4,598 [...] Discussed red flags and when to call MD/TENNIS INSTRUCTOR or [facility] ED. Medications reconciled at end of visit: yes I spent 30 minutes in this visit, with more than 50% of the time devoted to patient counseling. SIGNATURE: Albin Gu APRN.CNP PATIENT NAME: Berta Sanches DATE: April 07, 2024 TIME: 904 documented in this encounterHocking Valley Community Hospital10-04-2024 NoteHNO ID: [id number] Author: ALBIN GU APRN.CNP Service: ? Author Type: Nurse Practitioner Type: Progress Notes Filed: 04/07/2024 09:57 Note Text: Heart and Vascular [place] [facility] Heart Failure Clinic OUTPATIENT VISIT DATE [...] a boat and take it out on [place] to [employer]. IMPRESSION: NYHA Functional Class: II Stage: C [...] left Bilateral pneumonia 07/20/ (more content not included)...[facility] 02-21-2024 Telephone encounter Note* Telephone Encounter - [...] of plan of care. Melida Koo APRN.CNP [facility] Work Phone: 1(958) 646-932308-19-2024 Miscellaneous Notes* Telephone Encounter - Melida Koo [...] care. Melida Koo APRN.CNP documented in this encounterHocking Valley Community Hospital08-05-2024 Telephone encounter Note * Telephone Encounter - [...] to Maribell as well. Ying Fuentes LPN [facility]08-05-2024 Miscellaneous Notes* Telephone Encounter - Ying Fuentes [...] BNP. Maribell King APRN.CNP documented in this encounterHocking Valley Community Hospital08-05-2024 Telephone encounter Note * Telephone Encounter - Maribell King APRN.CNP - 02/07/2024 12:47 PM EDT Patient should double Lasix to 40 mg BID for 3 days, then recheck BMP that has been ordered per PCP. Please ask patient to monitor daily weights. Maribell King APRN.CNP [facility]08-05-2024 Telephone encounter Note* Telephone Encounter - Melida Koo APRN.CNP - 02/07/2024 8:27 AM EDT Pt called and left message on voicemail stating that she was feeling much better since following instructions that Alibn Gu had given her. She reported that SOB and edema was improved. She has concerns about NTpBNP and when she should have that rechecked. Called patient and she did not answer. Message left for call back. Melida Koo APRN.CNP [facility] Work Phone: 1(126) 510-957408-05-2024 Miscellaneous Notes* Telephone Encounter - Melida Koo [...] back. Melida Koo APRN.CNP documented in this encounterHocking Valley Community Hospital08-02-2024 Telephone encounter Note * Telephone Encounter - Ying Fuentes LPN - 02/04/2024 2:13 PM EDT I spoke to and informed them of Maribell's response to lab results and recommendations. Patient voiced understanding. Patient states BNP is elevated from 2 months ago. Patient asking if she should make any changes. Patient c/o weight gain and SOB with activity. Ying Fuentes LPN [facility]08-02-2024 Telephone encounter Note* Telephone Encounter - Ying Fuentes LPN - 02/04/2024 2:12 PM EDT ----- Message from Maribell King APRN.CNP sent at 02/04/2024 2:02 PM EDT ----- Please call the patient and report lab results revealed stable kidney function, normal potassium level, normal liver function, cholesterol is under good control, and elevated BNP. Maribell King APRN.CNP [facility]08-02-2024 Telephone encounter Note* Telephone Encounter - Albin [...] answered at this time. Albin Gu APRN.CNP [facility]08-02-2024 Miscellaneous Notes* Telephone Encounter - Albin Gu [...] time. Albin Gu APRN.CNP documented in this encounterHocking Valley Community Hospital07-15-2024 Instructions* Patient Instructions* Carla Burdick MD - 01/17/2024 10:08 AM EDT We will repeat fasting blood work documented in this encounterHocking Valley Community Hospital07-15-2024 History of Present illness Narrative* Carla Burdick MD - 01/17/2024 9:20 AM EDT Images from the original note were not included. [facility] SECTION OF REGIONAL CARDIOLOGY Cardiology ([facility]) [address] [facility] [id number] OUTPATIENT VISIT DATE 01/17/2024 PRIMARY CARE PHYSICIAN: Gerard Le [address] [place] [address] HISTORY OF PRESENT ILLNESS: Ms. 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 Lua PACEMAKER 10/2019 PART. HYSTERECTOMY W/WO RMVL OVARIES/TUBES 1973 h/o cervical cancer ovaries remain PAST SURGICAL HISTORY OF 1996 Aortic valve repair, Dr. Apodaca PAST SURGICAL HISTORY OF 2001 [address] Beltrán, [facility] PAST SURGICAL HISTORY OF 2015 [...] MG TABLET 8. SSS (sick sinus syndrome) ([facility]) - ICD9: 427.81, ICD10: I49.5 9. Primary [...] ICD10: Z95.0 12. PAD (peripheral artery disease) ([facility]) - ICD9: 443.9, ICD10: I73.9 Carla Burdick MD documented in this encounterHocking Valley Community Hospital07-15-2024 NoteHNO ID: [id number] Author: CARLA BURDICK MD Service: ? Author Type: Physician Type: Progress Notes Filed: 01/17/2024 10:36 Note Text: [facility] SECTION [facility] REGIONAL CARDIOLOGY Cardiology ([facility]) [address] [facility] [id number] OUTPATIENT VISIT DATE 01/17/2024 PRIMARY CARE PHYSICIAN: Gerard Le [address] [place] [address] HISTORY OF PRESENT ILLNESS: Ms. 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 Lua PACEMAKER 10/2019 PART. HYSTERECTOMY W/WO RMVL OVARIES/TUBES 1974 h/o cervical cancer ovaries remain PAST SURGICAL HISTORY OF 1996 Aortic valve repair, Dr. Apodaca PAST SURGICAL HISTORY OF 2001 [address] Beltrán, [facility] PAST SURGICAL HISTORY OF 2015 [...] mouth once daily. pota (more content not included)...[facility]06-04-2024 Instructions* Patient Instructions* Deysi Collazo APRN.CNP - 12/07/2023 12:13 PM EDT Continue the same medications. If no better or worsening, start the antibiotic. Start mucinex or coricidin. Let us know if no improvement/worsening. 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 Lua PACEMAKER 10/2019 PART. HYSTERECTOMY W/WO RMVL OVARIES/TUBES 1974 h/o cervical cancer ovaries remain PAST SURGICAL HISTORY OF 1996 Aortic valve repair, Dr. Apodaca PAST SURGICAL HISTORY OF 2001 [address] Beltrán, [facility] PAST SURGICAL HISTORY OF 2015 [...] improvement. Deysi Collazo APRN.JASPREET documented in this encounterHocking Valley Community Hospital05-24-2024 History of Present illness Narrative* Valentine Meneses [...] Signature: Valentine Meneses RN documented in this encounterHocking Valley Community Hospital05-23-2024 Instructions* Patient Instructions* Albin Gu APRN.CNP - [...] question or concern, you cancall me at [phone]. documented in this encounterHocking Valley Community Hospital05-23-2024 History of Present illness Narrative* Albin Gu APRN.JASPREET - 11/25/2023 10:00 AM EDT Images from the original note were not included. [facility] [place] [facility] Heart Failure Clinic OUTPATIENT VISIT DATE [...] timeline ofover 5 years ago. Was in [place] over the winter for 3 months. Noticed leg swelling while down in [place]. 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 Lua PACEMAKER 10/2019 PART. HYSTERECTOMY W/WO RMVL OVARIES/TUBES 1974 h/o cervical cancer ovaries remain PAST SURGICAL HISTORY OF 1996 Aortic valve repair, Dr. Apodaca PAST SURGICAL HISTORY OF 2001 [address] Beltrán, [facility] PAST SURGICAL HISTORY OF 2016 [...] 25, 2023 TIME: 1000 documented in this encounterHocking Valley Community Hospital05-21-2024 History of Present illness Narrative* Chula Morales RN - 11/23/2023 2:39 PM EDT Lab from 11/19/[address] Mujica. Greatly improved with oral iron. Pt notified. No need for OVin Hem/Onc and to follow up with PCP. Pt verbalized understanding. Chula Morales, RN documented in this encounterHocking Valley Community Hospital05-20-2024 Instructions* Patient Instructions* Deysi Collazo APRN.CNP - 11/22/2023 9:53 AM EDT Continue the same medication. Repeat lab on Wednesday after you see Dr. Rodriguez. Moist heat/ice to the back. Massage to the area. Let us know if any problems/concerns. documented in this encounterHocking Valley Community Hospital05-20-2024 History of Present illness Narrative* Deysi Collazo APRN.CNP - 11/22/2023 9:08 AM EDT This is a 78 year old female who presents today with: Patient presents with: Hospital Follow Up: [facility] follow up dc'd 11/12/23 dx: CHF HISTORY OF PRESENT ILLNESS: Berta Sanches is a 78 year old female. Patient presents with: Hospital Follow Up: [facility] follow up dc'd 11/12/23 dx: CHF Pt presents today for hospital follow-up. Discharged on 11/11 from [place] w/ dx of CHF. 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 Lua PACEMAKER 10/2019 PART. HYSTERECTOMY W/WO RMVL OVARIES/TUBES 1974 h/o cervical cancer ovaries remain PAST SURGICAL HISTORY OF 1996 Aortic valve repair, Dr. Apodaca PAST SURGICAL HISTORY OF 2001 [address] Beltrán, [facility] PAST SURGICAL HISTORY OF 2016 [...] improvement. Deysi Collazo APRN.JASPREET documented in this encounterHocking Valley Community Hospital05-17-2024 Telephone encounter Note * Telephone Encounter - Albin Gu APRN.CNP - 11/19/2023 8:37 AM EDT Patient called office for instructions on diuretics as her weight is up 5 lbs. She states she was instructed to call the office with questions. This TEXT TRANSCRIBER has not seen this patient in clinic but is scheduled to see her in the following week. The patient states she has not been able to reach her harvesting manager. She has been taking additional 20 [...] Patient agrees and understands. Albin Gu APRN.CNP [facility] Work Phone: 1(989) 636-662805-17-2024 Miscellaneous Notes* Telephone Encounter - Albin Gu APRN.CNP - 11/19/2023 8:37 AM EDT Patient called office for instructions on diuretics as her weight is up 5 lbs. She states she was instructed to call the office with questions. This TEXT TRANSCRIBER has not seen this patient in clinic but is scheduled to see her in the following week. The patient states she has not been able to reach her harvesting manager. She has been taking additional 20 [...] understands. Albin Gu APRN.CNP documented in this encounterHocking Valley Community Hospital05-15-2024 Telephone encounter Note * Telephone Encounter - [...] No results found for this basename: BNP [facility]05-15-2024 Miscellaneous Notes* Telephone Encounter - Gwen Valentine [...] for this basename: BNP documented in this encounterHocking Valley Community Hospital05-14-2024 Telephone encounter Note * Telephone Encounter - Mona Noonan - 11/16/2023 8:53 AM EDT Called patient and scheduled as Directed Mona Noonan [facility]05-14-2024 Miscellaneous Notes* Telephone Encounter - Mona Noonan [...] HEMATOLOGY Edmund Alex PA-C documented in this encounterHocking Valley Community Hospital05-14-2024 History of Present illness Narrative* Geri Montes RN - 11/16/2023 8:15 AM EDT ACM CECY RN Patient identified by name and date of . Reason for review or outreach: Chart Review Cecy Priority Emergency Department Utilization ED DIAGNOSES/REASON(S) FOR ED USE: OTHER FINDINGS/SUMMARY:E.D. visit on 11-09-23 transitioned to [facility] Admit Patient Attributed To: QAE Payer: [place]usep[place]andez[place]armel[place] Action Taken: No action needed Contact made with patient: No, Chart review only. Signature: Geri Montes RN documented in this encounterHocking Valley Community Hospital05-13-2024 Telephone encounter Note * Telephone Encounter - Nara Malone RN - 11/15/2023 10:32 AM EDT Transitional Care Management (TCM) [facility] Monitoring Program Provider Action / FYI: na SUMMARY: Outreach type: INITIAL OUTREACH Discharge Network Status: In-Network Discharge Source of Patient: [facility] TCM Discharge Report Patient discharged from [place] on 11.09.23. Admitted for Acute on chronic left systolic heart failure . Contact made with patient: Yes, for Initial Outreach Hi my name is Nara Malone RN and I am calling from the [facility] on behalf of your PrimaryCare Provider, Gerard [...] Appointment Center phone number to speak witha ship steward who can assist you with that appointment. [...] Malone RN November 15, 2023 10:35 AM [facility]05-13-2024 Miscellaneous Notes* Telephone Encounter - Nara Malone RN - 11/15/2023 10:32 AM EDT Transitional Care Management (TCM) [facility] Monitoring Program Provider Action / FYI: na SUMMARY: Outreach type: INITIAL OUTREACH Discharge Network Status: In-Network Discharge Source of Patient: [facility] TCM Discharge Report Patient discharged from [place] on 11.09.23. Admitted for Acute on chronic left systolic heart failure . Contact made with patient: Yes, for Initial Outreach Hi my name is Nara Malone RN and I am calling from the [facility] on behalf of your PrimaryCare Provider, Gerard [...] Appointment Center phone number to speak witha ship steward who can assist you with that appointment. [...] 15, 2023 10:35 AM documented in this encounterHocking Valley Community Hospital05-13-2024 Telephone encounter Note * Telephone Encounter - Ralph Mujica DO - 11/15/2023 9:31 AM EDT Hemoglobin okay. Not urgent. Next new appointment time with either me or Dr. Rodriguez. [facility]05-13-2024 Telephone encounter Note* Telephone Encounter - Rachele Bee LPN - 11/15/2023 9:26 AM EDT Dx: 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 (ICD-10-CM)]; Iron malabsorption [K90.9 (ICD-10-CM)] [facility]05-13-2024 Telephone encounter Note* Telephone Encounter - Gerard Le PA-C - 11/15/2023 8:31 AM EDT Hospitalist is recommending outpatient iron transfusion. Please schedule. Telephone on 10/31/23 CONSULT TO HEMATOLOGY ThanksEdmund PA-C [facility]05-10-2024 Telephone encounter Note* Telephone Encounter - Vandana Baird PSS - 11/12/2023 3:45 PM EDT [facility] home referral was received for Heart Failure services. Unfortunately the referral is declined at this time due to geographic location. Thank you for the referral. KAITLYNN Tuttle [facility]05-10-2024 Miscellaneous Notes* Telephone Encounter - Vandana Baird [...] interface Date Referral Received: 11/12/2023 Referral Source: [facility] TC Program: HF Consult UD Consult scheduled with: NA Date of : 1945 Age: [age] year old PCP: Gerard Le PA-C Visit address from [facility]: [address] [place] [address] Name of Physician who gave the order: Dr. Rita Rey Other services ordered: None Primary Insurance Company: Payor: [employer] MEDICARE / Plan: [employer] MEDICARE PPO / Product Type: PPO / Primary Insurance ID Number: [id number] documented in this encounterHocking Valley Community Hospital05-10-2024 Telephone encounter Note * Telephone Encounter - Vandana Baird PSS - 11/12/2023 3:44 PM EDT Transitional Care Program - Intake Template - for interface Date Referral Received: 11/12/2023 Referral Source: [facility] TC Program: HF Consult UD Consult scheduled with: NA Date of : 1945 Age: [age] year old PCP: Gerard Le PA-C Visit address from [facility]: [address] [place], [place] [id number] Name of Physician who gave the order: Dr. Rita Rey Other services ordered: None Primary Insurance Company: Payor: [employer] MEDICARE / Plan: AET[employer] MEDICARE PPO / Product Type: PPO / Primary Insurance ID Number: [id number] [facility]05-10-2024 Evaluation note* Diagnosis Stage 3 chronic kidney disease, unspecified whether stage 3a or 3b CKD (HCC)- Primary documented in this encounter [facility]05-06-2024 History of Present illness Narrative* Bere Boykin APRN.CNP - 11/08/2023 4:30 PM EDT Images from the original note were not included. 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 Lua PACEMAKER 10/2019 PART. HYSTERECTOMY W/WO RMVL OVARIES/TUBES 1974 h/o cervical cancer ovaries remain PAST SURGICAL HISTORY OF 1996 Aortic valve repair, Dr. Apodaca PAST SURGICAL HISTORY OF 2001 [address] Beltrán, [facility] PAST SURGICAL HISTORY OF 2015 [...] - May be candidate for DCCV at [facility] once euvolemic 3. Acute on chronic [...] hemodynamic stability, he spouse drove her to [facility] ER. I called report to Dr. Tuttle in theER. CONTACT INFORMATION: Bere Boykin APRN.[facility] Cardiology [address] [facility] [id number] Dept: [phone] I have reviewed the patient's medications and allergies, past medical, surgical, social and family history, updating these as appropriate. See Histories section of the [facility] for a display of this information. 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 Lua PACEMAKER 10/2019 PART. HYSTERECTOMY W/WO RMVL OVARIES/TUBES 1974 h/o cervical cancer ovaries remain PAST SURGICAL HISTORY OF 1996 Aortic valve repair, Dr. Apodaca PAST SURGICAL HISTORY OF 2001 [address] 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 3 Chronic Renal Impairment Associated With Type 2 Diabetes Mellitus ([facility]) History of Pulmonary Embolism Ascending Aorta Dilatation ([facility]) Chronic Bilateral Pleural Effusions Colovesical Fistula Right Renal Mass Diverticulitis Large Intestine W/O Perforation Or Abscess W/O Bleeding Renal Cell Carcinoma, Right ([facility]) Iron Deficiency Anemia Hypomagnesemia Gastrointestinal Hemorrhage Associated With Acute Gastritis Esophageal Stenosis Dilated Cardiomyopathy ([facility]) Chronic Combined Systolic and Diastolic Chf (Congestive Heart Failure) ([facility]) Sss (Sick Sinus Syndrome) ([facility]) Duodenal Ulcer Type 2 Diabetes Mellitus With Diabetic Peripheral Angiopathy Without Gangrene, Without Long-Term Current Use of Insulin ([facility]) Longstanding Persistent Atrial Fibrillation ([facility]) S/P Placement of Cardiac Pacemaker Ckd (Chronic Kidney Disease) Platelet Inhibition Due to Plavix Diverticulosis Lung Nodule, Solitary Red Blood Cell Antibody Positive Iron Deficiency Anemia Secondary to Inadequate Dietary Iron Intake Iron Malabsorption Chronic Renal Failure, Stage 3b ([facility]) Spondylolisthesis At L4-L5 Level Occlusion of Superior Mesenteric Artery ([facility]) Current Outpatient Medications Medication Sig Dispense [...] systolic and diastolic CHF (congestive heart failure) ([facility]) - ICD9: 428.42, 428.0, ICD10: I50.42 5. Dilated cardiomyopathy (HCC) - ICD9: 425.4, ICD10: I42.0 6. Longstanding persistent atrial fibrillation (HCC) - ICD9: 427.31, ICD10: I48.11 7. SSS (sick sinus syndrome) ([facility]) - ICD9: 427.81, ICD10: I49.5 [...] answered. Gerard Le PA-C documented in this encounterHocking Valley Community Hospital05-01-2024 Telephone encounter Note * Telephone Encounter - Gerard Le PA-C - 11/03/2023 10:36 AM EDT She needs to see person scheduled next week. She may need additional appointment with the pulmonology specialist in addition but haven't heard from Dr. Burdick yet. Thanks, Edmund Le PA-C [facility]05-01-2024 Miscellaneous Notes* Telephone Encounter - Gerard Le PA-C - 11/03/2023 10:36 AM EDT She needs to see person scheduled next week. She may need additional appointment with the pulmonology specialist in addition but haven't heard from Dr. Burdick yet. Thanks, Edmund Le PA-C * Telephone Encounter - Uma Parson MA - 11/02/2023 10:59 AM EDT After review pt is currently scheduled with a Turner Machine Operator in [place] on 11/08/23. This was setup on10/25/23. Her [...] Thanks, Edmund Le PA-C documented in this encounterHocking Valley Community Hospital04-30-2024 Telephone encounter Note * Telephone Encounter - Sandra Thacker LPN - 11/02/2023 5:13 PM EDT Patient notified. Verbalized understanding. Is scheduled for for follow up. [facility]04-30-2024 Miscellaneous Notes* Telephone Encounter - Sandra Thacker LPN - 11/02/2023 5:13 PM EDT Patient notified. Verbalized understanding. Is scheduled for for follow up. * Telephone Encounter - Gerard Le PA-C - 11/02/2023 5:04 PM EDT Please advise from [employer] message: Gilbert Benjamin You labs show you [...] METABOLIC PANEL ThanksEdmund PA-C documented in this encounterHocking Valley Community Hospital04-30-2024 Telephone encounter Note * Telephone Encounter - Gerard Le PA-C - 11/02/2023 5:04 PM EDT Please advise from [employer] message: Hi Cassidy You labs show you [...] AND TIBC BASIC METABOLIC PANEL ThanksEdmund PA-C [facility]04-30-2024 Telephone encounter Note* Telephone Encounter - Uma Parson MA - 11/02/2023 10:59 AM EDT After review pt is currently scheduled with a [employer] Machine Operator in [place] on 11/08/23. This was setup on10/25/23. Her Cardiology appt with Clara is in January. Is she still following with him or seeing someone new? Uma Parson MA [facility]04-30-2024 Telephone encounter Note* Telephone Encounter - Gerard Le PA-C - 11/02/2023 10:54 AM EDT Please see if we can expedite cardiology visit to [facility]IA r/t SOB, weight gain, lower extremity swelling and recent abnormal echo finding. Patient is willing for invasive procedures if necessary. Edmund Alex PA-C [facility]04-16-2024 History of Present illness Narrative* Lars Silva DO - 10/19/2023 4:00 PM EDT Reviewed DVT study with Cassidy. No evidence of DVT. Recommend follow up as scheduled with PCP and cardiology. documented in this encounterHocking Valley Community Hospital04-15-2024 History of Present illness Narrative* Marisol Cook [...] PATIENT PRESENTS WITH AN IMPLANTABLE OR ATTACHED PVC MONITOR: No RADIOLOGY DEPARTMENT: General X-ray: Exam(s) Completed: Chest X-Ray PERIPHERAL IV DATA: Not applicable SIGNED BY: RT Mario(Annalisa) October 18, 2023 2:28 PM documented in this encounterHocking Valley Community Hospital04-15-2024 Instructions* Patient Instructions* Gerard Le PA-C - [...] lab in 2 weeks. documented in this encounterHocking Valley Community Hospital04-15-2024 History of Present illness Narrative* Gerard Le PA-C - 10/18/2023 1:00 PM EDT 78 year old female with c/o here for Pedro Aneurysm Neurosurgeon Dr. Dianne Rogers, Susan Mtz SOCIAL SCIENCE INSTRUCTOR 12/10/2022 MRA brain W/WO: Satisfactory appearance of [...] Lymph 1.00 - 4.00 k/uL 2.82 2.73 Stewart% % 13.0 10.2 Abs Stewart <0.87 k/uL 1.10 (H) 0.79 Eosin% % [...] recent CT scans which were done in [facility]. 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 Lua PACEMAKER 10/2019 PART. HYSTERECTOMY W/WO RMVL OVARIES/TUBES 1974 h/o cervical cancer ovaries remain PAST SURGICAL HISTORY OF 1996 Aortic valve repair, Dr. Apodaca PAST SURGICAL HISTORY OF 2001 [address] Beltrán, [facility] PAST SURGICAL HISTORY OF 2016 [...] Failure) (Hcc) Sss (Sick Sinus Syndrome) ([facility]) Duodenal Ulcer Type 2 Diabetes Mellitus With Diabetic Peripheral Angiopathy Without Gangrene, Without Long-Term Current Use of Insulin (Hcc) Longstanding Persistent Atrial Fibrillation ([facility]) S/P Placement of Cardiac Pacemaker Ckd (Chronic Kidney Disease) Platelet Inhibition Due to Plavix Diverticulosis Lung Nodule, Solitary Red Blood Cell Antibody Positive Iron Deficiency Anemia Secondary to Inadequate Dietary Iron Intake Iron Malabsorption Chronic Renal Failure, Stage 3b ([facility]ly [facility]) Spondylolisthesis At L4-L5 Level Occlusion of Superior Mesenteric Artery (Formerly [facility]) Current Outpatient Medications Medication Sig Dispense [...] (primary diagnosis) 2. SSS (sick sinus syndrome) ([facility]) - ICD9: 427.81, ICD10: I49.5 3. Paroxysmal atrial fibrillation (HCC) - ICD9: 427.31, ICD10: I48.0 4. S/P placement of cardiac pacemaker - ICD9: V45.01, ICD10: Z95.0 5. Chronic combined systolic and diastolic CHF (congestive heart failure) ([facility]) - ICD9: 428.42, 428.0, ICD10: [...] % (FLUSH) INJECTION SYRINGE - INSERT IV (SC,CO) - IV DISCONTINUE 10. Platelet inhibition due [...] medication Gerard Le PA-C documented in this encounterHocking Valley Community Hospital04-12-2024 Miscellaneous Notes* Telephone Encounter - Mckayla [...] appointment in January 2024. Patient has called [facility] that they told her they are scheduling into April but if seen there she cannot be seen back in [place] location which is her preference. Patient is willing to travel to [facility] if she needs to. Please review and advise. Mckayla Albert LPN documented in this encounterHocking Valley Community Hospital04-11-2024 History of Present illness Narrative* Lars Silva Kellen, DO - 10/14/2023 2:57 PM EDT Images from the original note were not included. 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 Lua PACEMAKER 10/2019 PART. HYSTERECTOMY W/WO RMVL OVARIES/TUBES 1974 h/o cervical cancer ovaries remain PAST SURGICAL HISTORY OF 1996 Aortic valve repair, Dr. Apodaca PAST SURGICAL HISTORY OF 2001 [address] Beltrán, [facility] PAST SURGICAL HISTORY OF 2015 [...] 2023 TIME: 2:58 PM documented in this encounterHocking Valley Community Hospital01-01-2024 History of Present illness Narrative* Bijan [...] interactions). Bijan Cole MD documented in this encounterHocking Valley Community Hospital12-04-2023 Miscellaneous Notes* Telephone Encounter - Sheree Savage Ma - 06/07/2023 4:55 PM EST Patient stopped by office and picked up shoe. Small Squared toe post op shoe Sheree Savage Ma * Telephone Encounter - Sheree Savage Ma - 06/07/2023 1:49 PM EST Called pt and she will stop in office this afternoon to supervisor picking crew post op shoe. Sheree Savage Ma * Telephone Encounter - Uma Parson Ma - 06/07/2023 9:43 AM EST See response from pt. Uma Parson Ma documented in this encounterHocking Valley Community Hospital11-28-2023 History of Present illness Narrative* Marisol [...] 01, 2023 2:31 PM documented in this encounterHocking Valley Community Hospital10-27-2023 History of Present illness Narrative* Mckayla [...] 30, 2023 1:48 PM documented in this encounterHocking Valley Community Hospital10-09-2023 History of Present illness Narrative* Marisol [...] 12, 2023 10:32 AM documented in this encounterHocking Valley Community Hospital09-11-2023 Miscellaneous Notes* Telephone Encounter - Margoth [...] and advise. Agueda Schulte documented in this encounterHocking Valley Community Hospital07-27-2023 Miscellaneous Notes* Telephone Encounter - Bushra Strauss - 01/28/2023 10:43 AM EDT Patient has been contacted and scheduled with Dr. Silva * Telephone Encounter - Sheree Savage Ma - 01/28/2023 9:55 AM EDT Pt viewed Collactive message. Please help pt set up consult. * Telephone Encounter - Gerard Le PA-C - 01/28/2023 6:33 AM EDT Please schedule: Telephone on 01/28/23 CONSULT TO VASCULAR SURGERY Pvd (peripheral vascular disease) with claudication (hcc) (primary encounter diagnosis) See mychart regarding PVR resuts Edmund Alex PA-C documented in this encounterHocking Valley Community Hospital07-07-2023 Miscellaneous Notes* Telephone Encounter - Berta Keith - 01/08/2023 1:51 PM EDT Patient stated she will talk to Edmund at her appoitment.Berta Garcia Pss * Telephone Encounter - Sheree Savage Ma - 01/08/2023 9:34 AM EDT Images from the original note were not included. Gerard Le PA-C [facility] David Aldana Please assist patient to schedule outstanding CT chest WO to follow lung nodules if she is amenable Edmund Alex PA-C documented in this encounterHocking Valley Community Hospital07-06-2023 Instructions* Patient Instructions* Gerard Le PA-C - [...] due to heart conditions documented in this encounterHocking Valley Community Hospital07-06-2023 History of Present illness Narrative* Gerard Le PA-C - 01/07/2023 8:40 AM EDT 77 year old female with c/o here for routine follow up. Worst problem currently are legs. Has to get up and walk around. Drinks tonic water with quinine. Pain is excruciating. Severe pain. Not every night. Pedro Aneurysm Neurosurgeon Dr. Dianne Rogers, Susan Mtz SOCIAL SCIENCE INSTRUCTOR 12/10/2022 MRA brain W/WO: Satisfactory appearance of [...] - 4.00 k/uL 2.05 2.22 1.81 2.82 Stewart% % 12.7 12.3 12.6 13.0 Abs Stewart <0.87 k/uL 0.93 (H) 1.06 (H) 0.74 [...] recent CT scans which were done in [facility]. 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 Lua PACEMAKER 10/2019 PART. HYSTERECTOMY W/WO RMVL OVARIES/TUBES 1974 h/o cervical cancer ovaries remain PAST SURGICAL HISTORY OF 1996 Aortic valve repair, Dr. Apodaca PAST SURGICAL HISTORY OF 2001 [address] Beltrán, [facility] PAST SURGICAL HISTORY OF 2015 [...] ARTERIES [facility] 2. Atherosclerosis of [place] artery of both lower extremities with intermittent [...] UR - HGB A1C documented in this encounterHocking Valley Community Hospital06-08-2023 NoteHNO ID: [id number] Author: RT Pranav(R) Service: Radiology Author Type: [...] BY: RT Pranav(R) December 10, 2022 1:06 [facility]04-04-2023 History of Present illness Narrative* M Claudia Le PA-C - 10/06/2022 9:00 AM EDT 77 year old female with c/o here for follow up Pedro Aneurysm Neurosurgeon Dr. Dianne Rogers, Susan Mtz [facility] 12/07/2017 note: f/u MRA recommended 202012/02/2017 [...] - 4.00 k/uL 2.05 2.22 1.81 2.82 Stewart% % 12.7 12.3 12.6 13.0 Abs Stewart <0.87 k/uL 0.93 (H) 1.06 (H) 0.74 [...] recent CT scans which were done in [facility]. 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 Lua PACEMAKER 10/2019 PART. HYSTERECTOMY W/WO RMVL OVARIES/TUBES 1974 h/o cervical cancer ovaries remain PAST SURGICAL HISTORY OF 1996 Aortic valve repair, Dr. Apodaca PAST SURGICAL HISTORY OF 2001 [address] Beltrán, [facility] PAST SURGICAL HISTORY OF 2015 [...] (primary diagnosis) 2. SSS (sick sinus syndrome) ([facility]) - ICD9: 427.81, ICD10: I49.5 3. Chronic combined systolic and diastolic CHF (congestive heart failure) ([facility]) - ICD9: 428.42, 428.0, ICD10: I50.42 4. Dilated cardiomyopathy ([facility]) - ICD9: 425.4, ICD10: I42.0 5. Ascending aorta dilatation ([facility]) - ICD9: 447.71, ICD10: I77.810 6. H/O rheumatic heart disease - ICD9: V12.59, ICD10: Z86.79 7. History of prosthetic aortic valve replacement - ICD9: V43.3, ICD10: Z95.2 8. Paroxysmal atrial fibrillation ([facility]) - ICD9: 427.31, ICD10: I48.0 [...] schedule CT chest follow up today on [facility] 15. Chronic renal failure, stage 3b [...] PANEL Gerard Le PA-C documented in this encounterHocking Valley Community Hospital04-03-2023 History of Present illness Narrative* Erin [...] 05, 2022 9:36 AM documented in this encounterHocking Valley Community Hospital04-03-2023 Miscellaneous Notes* Result Encounter Note - Brayan Chicas MD - 10/05/2022 8:30 AM EDT Here are the test results.Keep follow up appointment to discuss the results. documented in this encounterHocking Valley Community Hospital03-28-2023 Miscellaneous Notes* Telephone Encounter - Rachele Bee LPN - 09/29/2022 12:06 PM EDT Patient no longer followed by Dr. Lund. Rachele Bee LPN documented in this encounterHocking Valley Community Hospital03-27-2023 Instructions* Patient Instructions* Carla Burdick MD - 09/28/2022 9:30 AM EDT We will repeat an echocardiogram in March Repeat fasting blood work documented in this encounterHocking Valley Community Hospital03-27-2023 History of Present illness Narrative* Carla Burdick MD - 09/28/2022 9:00 AM EDT Images from the original note were not included. [facility] SECTION OF REGIONAL CARDIOLOGY Cardiology ([facility]) [address] [facility] [id number] OUTPATIENT VISIT DATE 09/28/2022 PRIMARY CARE PHYSICIAN: Gerard Le [address] [place] [address] HISTORY OF PRESENT ILLNESS: Ms. 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 Lua PACEMAKER 10/2019 PART. HYSTERECTOMY W/WO RMVL OVARIES/TUBES 1973 h/o cervical cancer ovaries remain PAST SURGICAL HISTORY OF 1996 Aortic valve repair, Dr. Apodaca PAST SURGICAL HISTORY OF 2001 [address] Beltrán, [facility] PAST SURGICAL HISTORY OF 2015 [...] - Exam was compared with the prior [facility] echocardiographic exam performed on 01/12/2022. Small [...] CBC is pending 4. Ascending aorta dilatation ([facility]) - ICD9: 447.71, ICD10: I77.810 5. Dilated cardiomyopathy (HCC) - ICD9: 425.4, ICD10: I42.0 Patient maintained on Toprol and losartan. 6. Chronic combined systolic and diastolic CHF (congestive heart failure) ([facility]) - ICD9: 428.42, 428.0, ICD10: I50.42 Patient doing well on current diuretic therapy low-sodium diet 7. SSS (sick sinus syndrome) ([facility]) - ICD9: 427.81, ICD10: I49.5 8. S/P placement of cardiac pacemaker - ICD9: V45.01, ICD10: Z95.0 9. PAD (peripheral artery disease) ([facility]) - ICD9: 443.9, ICD10: I73.9 History of mild bilateral carotid artery disease. No symptoms for TIA or CVA. 10. Hyperlipidemia with target LDL less than 70 - ICD9: 272.4, ICD10: E78.5 Maintained on simvastatin 20 mg daily. Repeat fasting lipid panel - LIPID PANEL BASIC Carla Burdick MD documented in this encounterHocking Valley Community Hospital02-27-2023 Miscellaneous Notes* Telephone Encounter - Margoth [...] 10/06/22 Margoth Bolaños MA documented in this encounterHocking Valley Community Hospital01-18-2023 Miscellaneous Notes* Telephone Encounter - Mars Xiao - 07/22/2022 12:54 PM EST Study explained/reviewed with patient. Study related follow-up requirements were discussed. Risks, benefits, alternatives, personnel, and costs of the study explained/reviewed. Patient provided informed consent for review by email. Study related questions were addressed. Provided patient with contact information to call. Mars Xiao documented in this encounterHocking Valley Community Hospital01-16-2023 Miscellaneous Notes* Telephone Encounter - Sheree Savage Ma - 07/20/2022 12:11 PM EST Faxed to [facility] imaging at [phone] * Telephone Encounter - Sheree Savage Ma - 07/08/2022 12:45 PM EST Request sent to radiology * Telephone Encounter - Gerard Le PA-C - 07/08/2022 10:37 AM EST Please have 02/21/[address] IVC PE from [facility] imported and reviewed by radiologist for comparison with 03/19/2022 CT chest w IVCON PE. Not sure if this is the right order or even if needs order. Telephone on 07/08/22 CONSULT TO RADIOLOGY ThanksEdmund PA-C documented in this encounterHocking Valley Community Hospital01-03-2023 History of Present illness Narrative* Gerard Le [...] 1.00 - 4.00 k/uL 2.05 2.22 1.81 Stewart% % 12.7 12.3 12.6 Abs Stewart <0.87 k/uL 0.93 (H) 1.06 (H) 0.74 [...] artery Neurosurgeon Dr. Dianne Rogers, Susan Mtz SOCIAL SCIENCE INSTRUCTOR 12/07/2017 note: f/u MRA 202012/02/2017 MRA brain [...] gangrene, without long-term current use of insulin ([facility]) Current medications: none Taking medication [...] recent CT scans which were done in [facility]. Anemia, blood loss As above CBC improving 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 Lua PACEMAKER 10/2019 PART. HYSTERECTOMY W/WO RMVL OVARIES/TUBES 1973 h/o cervical cancer ovaries remain PAST SURGICAL HISTORY OF 1996 Aortic valve repair, Dr. Apodaca PAST SURGICAL HISTORY OF 2001 [address] Beltrán, [facility] PAST SURGICAL HISTORY OF 2015 [...] Skin Cancer Pad (Peripheral Artery Disease) ([facility]) Pedro Aneurysm of Anterior Communicating Artery Stage 3 Chronic Renal Impairment Associated With Type 2 Diabetes Mellitus ([facility]) History of Pulmonary Embolism Ascending Aorta Dilatation ([facility]) Chronic Bilateral Pleural Effusions Colovesical Fistula Right Renal Mass Diverticulitis Large Intestine W/O Perforation Or Abscess W/O Bleeding Renal Cell Carcinoma, Right ([facility]) Iron Deficiency Anemia Hypomagnesemia Gastrointestinal Hemorrhage Associated With Acute Gastritis Esophageal Stenosis Dilated Cardiomyopathy ([facility]) Chronic Systolic Congestive Heart Failure ([facility]) Sss (Sick Sinus Syndrome) ([facility]) Duodenal Ulcer Type 2 Diabetes Mellitus With Diabetic Peripheral Angiopathy Without Gangrene, Without Long-Term Current Use of Insulin ([facility]) Longstanding Persistent Atrial Fibrillation ([facility]) S/P Placement of Cardiac Pacemaker Ckd [...] TABLET BY MOUTH TWICE A DAY 60 [id number] furosemide (LASIX) 20 mg tablet Take 2 [...] ICD10: I49.5 4. Atrial fibrillation, unspecified type ([facility]) - ICD9: 427.31, ICD10: I48.91 5. Presence of Watchman left atrial appendage closure device - ICD9: V45.09, ICD10: Z95.818 Currently in controlled regular rhythm with out signs of CHF Continue current meds. 6. Chronic combined systolic and diastolic CHF (congestive heart failure) ([facility]) - ICD9: 428.42, 428.0, ICD10: I50.42 7. S/P placement of cardiac pacemaker - ICD9: V45.01, ICD10: Z95.0 8. Dilated cardiomyopathy ([facility]) - ICD9: 425.4, ICD10: I42.0 Stable, continue to monitor 9. Ascending aorta dilatation ([facility]) - ICD9: 447.71, ICD10: I77.810 Stable 4.5cm [...] gangrene, without long-term current use of insulin ([facility]) - ICD9: 250.70, 443.81, ICD10: E11.51 Controlled [...] months Gerard Le PA-C documented in this encounterHocking Valley Community Hospital11-21-2022 Miscellaneous Notes* Telephone Encounter - Lizeth Du LPN - 05/25/2022 7:25 AM EST Refill not appropriate at this time, according to records there should be at least 2 refills available. documented in this encounterHocking Valley Community Hospital11-10-2022 History of Present illness Narrative* Sonny Lund MD - 05/14/2022 9:28 AM EST PATIENT NAME: Berta Sanches. CLINIC NO: [id number]. ATTENDING PHYSICIAN: Sonny Lund MD. DATE OF SERVICE:05/14/2022. DIAGNOSIS: Iron deficiency anemia HPI: This is a 76-year-old lady with history of atrial fibrillation, prosthetic aortic valve replacement and congestive heart failure who presented to [facility] recently for decompensated heartfailure and severe [...] Abs Lymph 1.00 - 4.00 k/uL 1.81 Stewart% % 12.6 Abs Stewart <0.87 k/uL 0.74 Eosin% % 2.2 Abs [...] Cc: Gerard Le PA-C documented in this encounterHocking Valley Community Hospital10-19-2022 Miscellaneous Notes* Telephone Encounter - Lizeth [...] 06-08-2022. Lizeth Mcknight LPN documented in this encounterHocking Valley Community Hospital10-06-2022 Miscellaneous Notes* Telephone Encounter - Sheree Savage Ma - 04/09/2022 3:32 PM EDT Please schedule CT chest for 3 months. Thanks, Edmund Le PA-C documented in this encounterHocking Valley Community Hospital10-06-2022 History of Present illness Narrative* Brayan Chicas 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 Lua PACEMAKER 10/2019 PART. HYSTERECTOMY W/WO RMVL OVARIES/TUBES 1974 h/o cervical cancer ovaries remain PAST SURGICAL HISTORY OF 1996 Aortic valve repair, Dr. Apodaca PAST SURGICAL HISTORY OF 2001 [address] Beltrán, [facility] PAST SURGICAL HISTORY OF 2015 [...] 74 - 99 mg/dL Final Comment: The [place] Diabetes Association (ADA) provides guidance for cutoff [...] Standards of Medical Care in Diabetes 2016, [place] [employer] Association. Diabetes Care. 2016.39(Suppl 1). I [...] extrapolated by contextual derivation. documented in this encounterHocking Valley Community Hospital10-05-2022 Miscellaneous Notes* Telephone Encounter - Daysi Marina [...] infusions. Ralph Mujica DO documented in this encounterHocking Valley Community Hospital10-03-2022 Instructions* Patient Instructions* Gerard Le PA-C - [...] cup-Beef (cooked) 2 oz-Beet greens (cooked) 1/2 cup-[place] nuts 5 medium-Cereals 1 oz-Chicken (cooked) 3 [...] cup- Tongue 2 oz- Tuna 1/2 cup- [place] (cooked) 1 oz- Veal (cooked) 1 oz- Watermelon (6"x11/2") 1 slice-Wheat Germ 2 tbsp. Iron supplements are absorbed best when taken between meals, with liquids other than milk, coffee, or tea. Taking them at bedtime often helps reduce the chance of nausea. If you can't tolerate daily, try at least three times a week. documented in this encounterHocking Valley Community Hospital10-03-2022 History of Present illness Narrative* Gerard Le PA-C - 04/06/2022 10:20 AM EDT 76 year old female with c/o here for follow hospital Not doing well Very SOB No stamina, very SOB. Mentioned iron infusions. Hospital discharge follow-up Facility [facility] Admission date 03/19/2022 Discharge date 03/22/2022 Pre-hospitalization details: See note 03/19/2022: CHF, EKG AF, hx GIB melena admitted 02/21-02/24/2022 [place]. 03/19/22 Sent from office to [place] ED: VS [id number]- 98% RA Exam + rales. 2/4+ pitting [...] Abs Lymph 1.00 - 4.00 k/uL 2.09 Stewart% % 9.6 Abs Stewart <0.87 k/uL 0.77 Eosin% % 1.9 Abs [...] deficiency anemia Hypomagnesemia SSS (sick sinus syndrome) ([facility]) Type 2 diabetes mellitus with [...] control presents having taken a trip to [place] and having had no control over the food served for the amount of salt in it and had progressive swelling in her legs and then subsequently shortness of breath developing. A right 2.5 cm superior pole the rightkidney mass was found concerning for neoplasm that had been noted as long ago as June 2019. On return to [facility], she had presented to the emergency [...] Review Reviewed by Walter Bates MD, Ph.D ([id number]) Protein, Total 6.3 - 8.0 g/dL 6.0 [...] 2 weeks for nephrology order is in inside sales advisor FOLLOW-UP: GI in 2 days scheduled, lung nodule clinic to be scheduled, urology to be scheduled, and nephrology in 4 to 6 weeks to be scheduled LABS AND PROCEDURES PENDING AT DISCHARGE: No pending results. INCIDENTAL OR ACTIONABLE FINDING (Last Refresh: 03/22/2022 2:27 PM) Test(s): CT CHEST W IVCON PE FOLLOW-UP APPOINTMENTS ALREADY SCHEDULED WITH A [facility] PROVIDER: Future Appointments Date Time Provider Department Center 03/30/2022 8:40 AM Carla Burdick MD [facility] Nancy Marie 04/14/2022 10:00 AM Albin Gu APRN.SOCIAL SCIENCE INSTRUCTOR [facility] ALLERGIES Allergen Reactions Protamine Anaphylaxis 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 Lua PACEMAKER 10/2019 PART. HYSTERECTOMY W/WO RMVL OVARIES/TUBES 1974 h/o cervical cancer ovaries remain PAST SURGICAL HISTORY OF 1996 Aortic valve repair, Dr. Apodaca PAST SURGICAL HISTORY OF 2001 [address] Beltrán, [facility] PAST SURGICAL HISTORY OF 2015 [...] (TOPEX) X (OR/PROCEDURE) PRSangeeta Gustafson MD [address] [place] at 03/03/22 1149 fentaNYL 50 mcg/mL injection [...] mild sx 5. SSS (sick sinus syndrome) ([facility]) - ICD9: 427.81, ICD10: I49.5 6. Atrial fibrillation, unspecified type ([facility]) - ICD9: 427.31, ICD10: I48.91 7. Presence [...] comparison. Gerard Le PA-C documented in this encounterHocking Valley Community Hospital09-26-2022 Miscellaneous Notes* Telephone Encounter - Sigifredo [...] Thanks, Edmund Le PA-C documented in this encounterHocking Valley Community Hospital09-26-2022 Instructions* Patient Instructions* Carla Burdick MD - 03/30/2022 9:13 AM EDT We are increasing the Toprol (Metoprolol succinate) to 50 mg two times per day We are replacing the Lisinopril with Losartan 25 mg once per day Repeat blood work 7-10 days after starting the Losartan documented in this encounterHocking Valley Community Hospital09-26-2022 History of Present illness Narrative* Carla Burdick MD - 03/30/2022 8:40 AM EDT Images from the original note were not included. [facility]STITUTE SECTION OF REGIONAL CARDIOLOGY Cardiology ([facility]) [address] [facility] [id number] OUTPATIENT VISIT DATE 03/30/2022 PRIMARY CARE PHYSICIAN: Gerard Le [address] [place] [address] HISTORY OF PRESENT ILLNESS: Ms. Sanches is a 76 year old woman with a history of remote aortic valve replacement with homograft in 1996 and possible repair of the ascending aorta, hypertension, dyslipidemia, atrial fibrillation with history of pulmonary vein isolation procedures, pacemaker placement recent watchman procedurewho presents for follow-up after hospital admission for congestive heart failure. She had gone on acruise to [place] and developed lower extremity edema and worsening shortness of breath. On return to [place], she had worsening symptoms of weight gain, PND, and orthopnea symptoms. She was seen at [facility] and was treated for acute systolic 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 Lua PACEMAKER 10/2019 PART. HYSTERECTOMY W/WO RMVL OVARIES/TUBES 1974 h/o cervical cancer ovaries remain PAST SURGICAL HISTORY OF 1996 Aortic valve repair, Dr. Apodaca PAST SURGICAL HISTORY OF 2001 [address] 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 Carla Burdick MD documented in this encounterHocking [facility]09[facility] Miscellaneous Notes* Telephone Encounter - Juan Diego Carroll Jr., MD - 03/21/2022 10:51 AM EDT [place] consult Needs appt with [facility] in [place] * Telephone Encounter - Juan Diego Carroll Jr., MD - 03/21/2022 10:51 AM EDT ----- Message from Huy Chauhan MD sent at 03/21/2022 9:11 AM EDT ----- Regarding: Renal mass Thank you Mike. Son documented in this encounterHocking Valley [facility]09-16-[facility]22 History of Present illness Narrative* Sheridan Cervantes RN - 03/20/2022 8:22 AM EDT TRANSITION CARE MANAGEMENT (TCM) FOLLOW-UP NOTE Provider Action/FYI Chart reviewed. TCM removed name from TEAMS due to [facility] admission 03/19/22 chf. TCM follow up pending hospital discharge disposition. Summary: Pt discharged from [facility] on 02/24. Admitted for: GI bleeding diverticular bleed/acute blood loss anemia Service Learning Coordinator plan for next outreach: No further follow up needed at this time Signature Sheridan Cervantes RN March 20, 2022 documented in this encounterHocking [facility]09-15-[facility]22 History of Past illness Narrative* Problem [...] get beds in local hospital, transferred to [facility]. Anemia due to GI blood loss 10/24/201903/05 [...] 12/22/2018 Prosthetic aortic valve stenosis 11/19/2016 12/22/2018 group home current use of antiarrhythmic medical therapy 10/20/2016 [...] diarrhea. Patient had her eyes examined in [place] this year and was told that she [...] of this encounter (statuses as of 03/23/2022) [facility] of Past illness Narrative* Problem [...] get beds in local hospital, transferred to [facility]. Anemia due to GI blood loss 10/24/201903/05 [...] 12/22/2018 Prosthetic aortic valve stenosis 11/19/2016 12/22/2018 group home current use of antiarrhythmic medical therapy 10/20/2016 [...] diarrhea. Patient had her eyes examined in [place] this year and was told that she [...] of this encounter (statuses as of 03/28/2022) [facility] of Past illness Narrative* Problem [...] get beds in local hospital, transferred to [facility]. 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 Patient had her eyes examined in [place] this year and was told that she [...] of this encounter (statuses as of 03/30/2022) [facility] of Past illness Narrative* Problem [...] get beds in local hospital, transferred to [facility]. 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 Patient had her eyes examined in [place] this year and was told that she [...] of this encounter (statuses as of 03/30/2022) [facility] of Past illness Narrative* Problem [...] get beds in local hospital, transferred to [facility]. Anemia due to GI blood loss 10/24/201903/05 [...] 12/22/2018 Prosthetic aortic valve stenosis 11/19/2016 12/22/2018 group home current use of antiarrhythmic medical therapy 10/20/2016 [...] diarrhea. Patient had her eyes examined in [place] this year and was told that she [...] of this encounter (statuses as of 04/06/2022) [facility] Past illness Narrative* Problem [...] get beds in local hospital, transferred to [facility]. Anemia due to GI blood loss 10/24/201903/05 [...] 12/22/2018 Prosthetic aortic valve stenosis 11/19/2016 12/22/2018 group home current use of antiarrhythmic medical therapy 10/20/2016 [...] diarrhea. Patient had her eyes examined in [place] this year and was told that she [...] of this encounter (statuses as of 04/07/2022) [facility] illness Narrative* Problem [...] get beds in local hospital, transferred to [facility]. 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 Patient had her eyes examined in [place] this year and was told that she [...] of this encounter (statuses as of 04/08/2022) [facility] illness Narrative* Problem [...] get beds in local hospital, transferred to [facility]. 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 Patient had her eyes examined in [place] this year and was told that she [...] of this encounter (statuses as of 04/09/2022) [facility] illness Narrative* Problem [...] get beds in local hospital, transferred to [facility]. Anemia due to GI blood loss 10/24/201903/05 [...] 12/22/2018 Prosthetic aortic valve stenosis 11/19/2016 12/22/2018 group home current use of antiarrhythmic medical therapy 10/20/2016 [...] diarrhea. Patient had her eyes examined in [place] this year and was told that she [...] of this encounter (statuses as of 04/17/2022) [facility] illness Narrative* Problem [...] get beds in local hospital, transferred to [facility]. Anemia due to GI blood loss 10/24/201903/05 [...] 12/22/2018 Prosthetic aortic valve stenosis 11/19/2016 12/22/2018 group home current use of antiarrhythmic medical therapy 10/20/2016 [...] diarrhea. Patient had her eyes examined in [place] this year and was told that she [...] of this encounter (statuses as of 04/20/2022) [facility] illness Narrative* Problem [...] get beds in local hospital, transferred to [facility]. 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 Patient had her eyes examined in [place] this year and was told that she [...] of this encounter (statuses as of 04/22/2022) [facility] illness Narrative* Problem [...] get beds in local hospital, transferred to [facility]. Anemia due to GI blood loss 10/24/201903/05 [...] 12/22/2018 Prosthetic aortic valve stenosis 11/19/2016 12/22/2018 group home current use of antiarrhythmic medical therapy 10/20/2016 [...] diarrhea. Patient had her eyes examined in [place] this year and was told that she [...] of this encounter (statuses as of 04/23/2022) [facility] illness Narrative* Problem [...] get beds in local hospital, transferred to [facility]. 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 Patient had her eyes examined in [place] this year and was told that she [...] of this encounter (statuses as of 04/28/2022) [facility] illness Narrative* Problem [...] get beds in local hospital, transferred to [facility]. 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 Patient had her eyes examined in [place] this year and was told that she [...] of this encounter (statuses as of 05/15/2022) [facility] of [facility] illness Narrative* Problem [...] get beds in local hospital, transferred to [facility]. 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 Patient had her eyes examined in [place] this year and was told that she [...] of this encounter (statuses as of 05/25/2022) [facility] illness Narrative* Problem [...] get beds in local hospital, transferred to [facility]. 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 Patient had her eyes examined in [place] this year and was told that she [...] of this encounter (statuses as of 05/29/2022) [facility] illness Narrative* Problem [...] get beds in local hospital, transferred to [facility]. Anemia due to GI blood loss 10/24/201903/05 [...] 12/22/2018 Prosthetic aortic valve stenosis 11/19/2016 12/22/2018 group home current use of antiarrhythmic medical therapy 10/20/2016 [...] diarrhea. Patient had her eyes examined in [place] this year and was told that she [...] of this encounter (statuses as of 07/06/2022) [facility] Narrative* Problem [...] get beds in local hospital, transferred to [facility]. 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 Patient had her eyes examined in [place] this year and was told that she [...] of this encounter (statuses as of 07/09/2022) [facility] Narrative* Problem [...] get beds in local hospital, transferred to [facility]. Anemia due to GI blood loss 10/24/201903/05 [...] 12/22/2018 Prosthetic aortic valve stenosis 11/19/2016 12/22/2018 group home current use of antiarrhythmic medical therapy 10/20/2016 [...] diarrhea. Patient had her eyes examined in [place] this year and was told that she [...] of this encounter (statuses as of 07/22/2022) [facility] Narrative* Problem [...] get beds in local hospital, transferred to [facility]. 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 Patient had her eyes examined in [place] this year and was told that she [...] of this encounter (statuses as of 07/22/2022) [facility] illness Narrative* Problem [...] get beds in local hospital, transferred to [facility]. 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 Patient had her eyes examined in [place] this year and was told that she [...] of this encounter (statuses as of 09/01/2022) [facility] Narrative* Problem [...] get beds in local hospital, transferred to [facility]. Anemia due to GI blood loss 10/24/201903/05 [...] 12/22/2018 Prosthetic aortic valve stenosis 11/19/2016 12/22/2018 group home current use of antiarrhythmic medical therapy 10/20/2016 [...] diarrhea. Patient had her eyes examined in [place] this year and was told that she [...] of this encounter (statuses as of 09/27/2022) [facility] Narrative* Problem [...] get beds in local hospital, transferred to [facility]. 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 Patient had her eyes examined in [place] this year and was told that she [...] of this encounter (statuses as of 09/28/2022) [facility] Narrative* Problem Noted Date Resolved Date Acute on chronic systolic heart failure 03/19/2003/22/2022 Melena 02/22/2022 02/24/2022 Acute kidney injury 02/22/2022 02/24/2022 Atrial fibrillation 01/12/2022 03/21/2022 Encounter for support and coordination of transi tion of care 02/15/2021 09/12/2021 Overview: 02/13/[address] Freguson's office following gallbladder ultrasound demonstrating sludge. Admitted [...] get beds in local hospital, transferred to [facility]. Anemia due to GI blood loss 10/24/201903/05 [...] 12/22/2018 Prosthetic aortic valve stenosis 11/19/2016 12/22/2018 group home current use of antiarrhythmic medical therapy 10/20/2016 [...] diarrhea. Patient had her eyes examined in [place] this year and was told that she [...] of this encounter (statuses as of 09/29/2022) [facility] Narrative* Problem [...] get beds in local hospital, transferred to [facility]. 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 Patient had her eyes examined in [place] this year and was told that she [...] of this encounter (statuses as of 10/07/2022) [facility] Narrative* Problem [...] get beds in local hospital, transferred to [facility]. 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 Patient had her eyes examined in [place] this year and was told that she [...] of this encounter (statuses as of 12/29/2022) [place] [address]-15-2022 History of Past illness Narrative* Problem Noted [...] get beds in local hospital, transferred to [facility]. 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 Patient had her eyes examined in [place] this year and was told that she [...] of this encounter (statuses as of 01/09/2023) [facility] Narrative* Problem [...] get beds in local hospital, transferred to [facility]. Anemia due to GI blood loss 10/24/2019 [...] 12/22/2018 Prosthetic aortic valve stenosis 11/19/2016 12/22/2018 group home current use of ant iarrhythmic medical therapy [...] diarrhea. Patient had her eyes examined in [place] this year and was told that she [...] of this encounter (statuses as of 01/28/2023) [facility] Narrative* Problem [...] get beds in local hospital, transferred to [facility]. Anemia due to GI blood loss 10/24/2019 [...] 12/22/2018 Prosthetic aortic valve stenosis 11/19/2016 12/22/2018 group home current use of ant iarrhythmic medical therapy [...] diarrhea. Patient had her eyes examined in [place] this year and was told that she [...] of this encounter (statuses as of 03/15/2023) [facility] Narrative* Problem [...] get beds in local hospital, transferred to [facility]. Anemia due to GI blood loss 10/24/2019 [...] 12/22/2018 Prosthetic aortic valve stenosis 11/19/2016 12/22/2018 group home current use of ant iarrhythmic medical therapy [...] diarrhea. Patient had her eyes examined in [place] this year and was told that she [...] of this encounter (statuses as of 03/28/2023) [facility] Narrative* Problem [...] get beds in local hospital, transferred to [facility]. Anemia due to GI blood loss 10/24/2019 [...] 12/22/2018 Prosthetic aortic valve stenosis 11/19/2016 12/22/2018 group home current use of ant iarrhythmic medical therapy [...] diarrhea. Patient had her eyes examined in [place] this year and was told that she [...] of this encounter (statuses as of 05/07/2023) [facility] Narrative* Problem [...] get beds in local hospital, transferred to [facility]. Anemia due to GI blood loss 10/24/2019 [...] 12/22/2018 Prosthetic aortic valve stenosis 11/19/2016 12/22/2018 group home current use of ant iarrhythmic medical therapy [...] diarrhea. Patient had her eyes examined in [place] this year and was told that she [...] of this encounter (statuses as of 05/07/2023) [facility] Narrative* Problem [...] get beds in local hospital, transferred to [facility]. 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 Patient had her eyes examined in [place] this year and was told that she [...] of this encounter (statuses as of 05/21/2023) [facility] illness Narrative* Problem [...] get beds in local hospital, transferred to [facility]. Anemia due to GI blood loss 10/24/2019 [...] 12/22/2018 Prosthetic aortic valve stenosis 11/19/2016 12/22/2018 group home current use of ant iarrhythmic medical therapy [...] diarrhea. Patient had her eyes examined in [place] this year and was told that she [...] of this encounter (statuses as of 06/08/2023) [facility] Narrative* Problem [...] get beds in local hospital, transferred to [facility] Anemia due to GI blood loss 10/24/2019 [...] 12/22/2018 Prosthetic aortic valve stenosis 11/19/2016 12/22/2018 group home current use of ant iarrhythmic medical therapy [...] diarrhea. Patient had her eyes examined in [place] this year and was told that she [...] of this encounter (statuses as of 07/05/2023) [facility] Narrative* Problem [...] get beds in local hospital, transferred to [facility]. Anemia due to GI blood loss 10/24/2019 [...] 12/22/2018 Prosthetic aortic valve stenosis 11/19/2016 12/22/2018 group home current use of ant iarrhythmic medical therapy [...] diarrhea. Patient had her eyes examined in [place] this year and was told that she [...] of this encounter (statuses as of 10/15/2023) [facility] of Past illness Narrative* Problem [...] get beds in local hospital, transferred to [facility]. 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 Patient had her eyes examined in [place] this year and was told that she [...] of this encounter (statuses as of 10/16/2023) [facility] Narrative* Problem [...] get beds in local hospital, transferred to [facility]. 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 Patient had her eyes examined in [place] this year and was told that she [...] of this encounter (statuses as of 10/21/2023) [facility] of Present illness Narrative* Gerard Le PA-C - 03/19/2022 10:40 AM EDT 76 year old female with extensive hx AF, CHF, HTN, S/P aortic valve replacemet, s/p Watchman procedure recently off coumadin c/o leg swelling bilaterally over last 4-5 days. Flew home from [place] last night. Did get up and walk several times during flight. . SOB x 4-5 days, can hardly go more than 10-15 steps without resting. No chest pain. Feels heart racing at times. No syncopal sx. Feels leg are warm, heavy No pain. Got back from [place] 2am this morning Able to lay supine. No Admitted [facility] 02/21-02/24/2022 for persistent melena, progressive anemia Diagnoses [...] prosthetic valve #28, 2-3+ AR PV tr MI Component Latest Ref Rng & Units 02/23/2022 [...] Lymph 1.00 - 4.00 k/uL 2.31 2.51 Stewart% % 12.2 12.4 Abs Stewart <0.87 k/uL 0.94 (H) 1.04 (H) Eosin% 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 Lua PACEMAKER 10/2019 PART. HYSTERECTOMY W/WO RMVL OVARIES/TUBES 1974 h/o cervical cancer ovaries remain PAST SURGICAL HISTORY OF 1996 Aortic valve repair, Dr. Apodaca PAST SURGICAL HISTORY OF 2001 [address] 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 3 Chronic Renal Impairment Associated With Type 2 Diabetes Mellitus ([facility]) History of Pulmonary Embolism Ascending Aorta Dilatation (Hcc) Chronic Bilateral Pleural Effusions Colovesical Fistula Renal Mass, Right Diverticulitis Large Intestine W/O Perforation Or Abscess W/O Bleeding Renal Cell Carcinoma, Right ([facility]) Iron Deficiency Anemia Hypomagnesemia Gastrointestinal Hemorrhage Associated With Acute Gastritis Esophageal Stenosis Dilated Cardiomyopathy (Hcc) Chronic Diastolic Congestive Heart Failure ([facility]ly [facility]) Sss (Sick Sinus Syndrome) (Formerly [facility]) Duodenal Ulcer Type 2 Diabetes Mellitus With Diabetic Peripheral Angiopathy Without Gangrene, Without Long-Term Current Use of Insulin (Hcc) Atrial Fibrillation ([facility]ly [facility]) Current Outpatient Medications Medication Sig Dispense [...] (TOPEX) X (OR/PROCEDURE) PRSangeeta Gustafson MD 2 [place] at 03/03/22 1149 fentaNYL 50 mcg/mL injection [...] <130/80 Gerard Le PA-C documented in this encounterHocking [facility]09[facility] History of Present illness Narrative* Sheridan Cervantes RN - 03/05/2022 12:39 PM EDT TRANSITION CARE MANAGEMENT (TCM) FOLLOW-UP NOTE Provider Action/FYI Chart reviewed, TCM follow up call deferred due to 03/03 office visit with JASPREET Torres. Summary: Pt discharged from [facility] on 02/24. Admitted for: PRINCIPAL DIAGNOSIS: GI bleeding diverticular bleed/acute blood loss anemia Service Learning Coordinator plan for next outreach: Will follow up Signature Sheridan Cervantes RN March 05, 2022 documented in this encounterHocking Valley [facility]08[facility]31-[facility]22 Miscellaneous Notes* Addendum Note - Radha Torres APRN.CNP - 03/04/2022 10:54 AM EDTAddended by: RADHA TORRES on: 03/04/2022 10:54 AM Modules accepted: Orders, SmartSet * Addendum Note - Radha Torres APRN.CNP - 03/04/2022 9:46 AM EDTAddended by: RADHA TORRES on: 03/04/2022 09:46 AM Modules accepted: Orders documented in this encounterHocking Valley [facility]08-30-2022 History of Present illness Narrative* Radha Torres APRN.CNP - 03/03/2022 12:00 PM EDT Images from the original note were not included. [facility] [place] Martha Meléndez Department of Cardiovascular Medicine SECTION OF CARDIAC PACING and ELECTROPHYSIOLOGY OUTPATIENT VISIT DATE March 03, 2022 OUTPATIENT VISIT TYPE ESTABLISHED PRIMARY CARE PHYSICIAN: Gerard Le [address] [place] [address] CHIEF COMPLAINT: Post Watchman follow up HISTORY [...] upper and lower endoscopy were non diagnostic. [id number] score: 7 (congestive heart failure, hypertension, age 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 Lua PACEMAKER 10/2019 PART. HYSTERECTOMY W/WO RMVL OVARIES/TUBES 1974 h/o cervical cancer ovaries remain PAST SURGICAL HISTORY OF 1996 Aortic valve repair, Dr. Apodaca PAST SURGICAL HISTORY OF 2001 [address] Beltrán, [facility] PAST SURGICAL HISTORY OF 2015 [...] yearly in-clinic device checks. Ying Hart RN [place] to Dr. Fay in Dr. Gomez's absence [...] assess as well. - The following is territory representative of measurements of LAXMI dimensions from [...] upper and lower endoscopy were non diagnostic. [id number] score: 7 (congestive heart failure, hypertension, age [...] INFORMATION: Radha Torres APRN.CNP documented in this encounterHocking Valley [facility] Hospital08-30-2022 Nurse Note* Alexandre Avalos RN - [...] RN In Department: CARDIOLOGY documented in this encounterHocking Valley Community Hospital08-29-2022 Miscellaneous Notes* Telephone Encounter - Saima [...] In Department of CARDIOLOGY. documented in this encounterHocking Valley Community Hospital08-24-2022 History of Present illness Narrative* Harika Tomas RN - 02/25/2022 2:27 PM EDT TCM Home Visit Referral Source of Stratification: [facility] Hospital Admission Status: Discharged Readmission Risk Score: [...] PROGRAM Provider Action/FYI: SUMMARY: Pt discharged from [facility] on 02/24. Admitted for: PRINCIPAL DIAGNOSIS: GI bleeding diverticular bleed/acute blood loss anemia Contact made with patient: No - 2nd unsuccessful attempt - end outreach and close encounter Outreach ended Harika LINCOLNN [facility] [phone] * Harika Tomas RN - 02/25/2022 10:14 AM EDT TCM Home Visit Referral Source of Stratification: [facility] Hospital Admission Status: Discharged Readmission Risk Score: [...] today or tomorrow SUMMARY: Pt discharged from [facility] on 02/24. Admitted for: PRINCIPAL DIAGNOSIS: GI bleeding diverticular bleed/acute blood loss anemia Contact made with patient: No - next outreach attempt will be on next day Outreach ended Harika LOPEZ [facility] [phone] documented in this encounterHocking Valley Community Hospital08-21-2022 History of Past illness Narrative* Problem [...] get beds in local hospital, transferred to [facility]. 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 Patient had her eyes examined in [place] this year and was told that she [...] of this encounter (statuses as of 02/25/2022) [facility] History of Past illness Narrative* Problem [...] get beds in local hospital, transferred to [facility]. 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 Patient had her eyes examined in [place] this year and was told that she [...] of this encounter (statuses as of 03/02/2022) [facility] History of Past illness Narrative* Problem [...] get beds in local hospital, transferred to [facility]. 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 Patient had her eyes examined in [place] this year and was told that she [...] of this encounter (statuses as of 03/03/2022) [facility] History of Past illness Narrative* Problem [...] get beds in local hospital, transferred to [facility]. Anemia 10/24/2019 09/12/2021 Last Assessment & Plan: [...] 12/22/2018 Prosthetic aortic valve stenosis 11/19/2016 12/22/2018 group home current use of antiarrhythmic medical therapy 10/20/2016 [...] diarrhea. Patient had her eyes examined in [place] this year and was told that she [...] of this encounter (statuses as of 03/04/2022) [facility] History of Past illness Narrative* Problem [...] get beds in local hospital, transferred to [facility]. 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 Patient had her eyes examined in [place] this year and was told that she [...] of this encounter (statuses as of 03/05/2022) [facility] History of Past illness Narrative* Problem [...] get beds in local hospital, transferred to [facility]. Anemia 10/24/2019 09/12/2021 Last Assessment & Plan: [...] 12/22/2018 Prosthetic aortic valve stenosis 11/19/2016 12/22/2018 group home current use of antiarrhythmic medical therapy 10/20/2016 [...] diarrhea. Patient had her eyes examined in [place] this year and was told that she [...] of this encounter (statuses as of 03/11/2022) [facility] History of Past illness Narrative* Problem [...] get beds in local hospital, transferred to [facility]. Anemia 10/24/2019 09/12/2021 Last Assessment & Plan: [...] 12/22/2018 Prosthetic aortic valve stenosis 11/19/2016 12/22/2018 group home current use of antiarrhythmic medical therapy 10/20/2016 [...] diarrhea. Patient had her eyes examined in [place] this year and was told that she [...] of this encounter (statuses as of 03/20/2022) [facility] History of Past illness Narrative* Problem [...] get beds in local hospital, transferred to [facility]. Anemia 10/24/2019 09/12/2021 Last Assessment & Plan: Assessment & PLAN: See above Renal cell carcinoma 10/24/2019 09/12/2021 Last Assessment & Plan: Currently following with urology (Dr. Wagner) outpatient for routine surveillance imaging MRI kidney on 07/11/19 noting stable 2.2 cm right renal mass No plans for surgical intervention at this time Diverticulitis of large inte afrooq with perforation and abscess without bleeding 06/16/2019 [...] 12/22/2018 Prosthetic aortic valve stenosis 11/19/2016 12/22/2018 group home current use of antiarrhythmic medical therapy 10/20/2016 [...] diarrhea. Patient had her eyes examined in [place] this year and was told that she [...] of this encounter (statuses as of 03/20/2022) [facility] History of Past illness Narrative* Problem [...] get beds in local hospital, transferred to [facility]. Renal cell carcinoma 10/24/2019 09/12/2021 Last Assessment [...] 12/22/2018 Prosthetic aortic valve stenosis 11/19/2016 12/22/2018 group home current use of antiarrhythmic medical therapy 10/20/2016 [...] diarrhea. Patient had her eyes examined in [place] this year and was told that she [...] of this encounter (statuses as of 03/21/2022) [facility] Miscellaneous Notes* Telephone Encounter - Rojelio Jamison [...] testing. Giovanna Powell RN documented in this encounterHocking Valley Community Hospital08-19-2022 History of Present illness Narrative* Gerard Le [...] anxious about potential risk of having to [facility] cruise with family. Component Latest 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 Lua PACEMAKER 10/2019 PART. HYSTERECTOMY W/WO RMVL OVARIES/TUBES 1974 h/o cervical cancer ovaries remain PAST SURGICAL HISTORY OF 1996 Aortic valve repair, Dr. Apodaca PAST SURGICAL HISTORY OF 2001 [address] Beltrán, [facility] PAST SURGICAL HISTORY OF 2015 [...] PNL Gerard Le PA-C documented in this encounterHocking Valley Community Hospital07-20-2022 Miscellaneous Notes* Telephone Encounter - Deonna Bryant - 01/21/2022 10:30 AM EDT January 21, 2022 Patient Contact Number: [phone] (home) [phone] (cell) Patient last seen within the last year: Yes Reason for Call: Patient called to schedule follow up from Watchman procedure. Order for ABDIEL needs to be placed (can be done by TENNIS INSTRUCTOR) and patient should contact office as soon as ABDIEL is done so it can be reviewed (should be done 45 days after the procedure). TENNIS INSTRUCTOR: Please place Order for ABDIEL. Admin to request ABDIEL for after 02/26/2022 but before 03/07/2022. Thank you, Deonna Bryant, Admin documented in this encounterHocking Valley Community Hospital07-18-2022 Miscellaneous Notes* Telephone Encounter - Ivory Graham - 01/19/2022 11:05 AM EDT Call from pharmacy requesting refill. Pending Prescriptions Disp Refills ASPIRIN 81 MG CHEWABLE TABLET 90 tablet 3 Sig: Take 1 tablet by mouth once daily. BRAYAN: No Patient last seen 01/09/2022 Ivory Graham documented in this encounterHocking Valley Community Hospital07-15-2022 Instructions* Patient Instructions* Gerard Le PA-C - [...] keep your stress under control. Published by [employer]. This content is reviewed periodically and is subject to change as new health information becomes available. The information is intended to inform and educate and is not a replacement for medical evaluation, advice, diagnosis or treatment by a healthcare professional. Developed by [employer]. Copyright 2005 [employer] and/or one of its subsidiaries. All Rights Reserved. documented in this encounterHocking Valley Community Hospital07-15-2022 History of Present illness Narrative* Gerard Le [...] Pacemaker 10/21/[address] SELAM BRATLETT [id number] pulse generator, his bundle lead, right atrial lead Peripheral arterial disease (HCC) Rheumatic fever Steatosis, liver 03/26/2014 fatty liver on US. No gallstones Tachy-pavan syndrome (HCC) PAST SURGICAL HISTORY Procedure Laterality Date ABLATION 2018 for afib ANESTHESIA EXTERNAL MIDDLE & INNER EAR W/BX NOS 2003, 2004,04/30/15 CARDIOVERSION 2018 EGD 02/28/2021 ESOPHAGOGASTRODUODENOSCOPY TRANSORAL DIAGNOSTIC 02/28/2021 LAP COLECTOMY, SIGMOID W/WAXING MACHINE OPERATOR N/A 07/18/2019 for colovesicle fistula - Dr. Mosley MASTOIDECTOMY Right 04/30/2015 cholesteatoma removed, Dr. Lua PACEMAKER 10/2019 PART. HYSTERECTOMY W/WO RMVL OVARIES/TUBES 1974 h/o cervical cancer ovaries remain PAST SURGICAL HISTORY OF 1996 Aortic valve repair, Dr. Apodaca PAST SURGICAL HISTORY OF 2001 [address] Beltrán, [facility] PAST SURGICAL HISTORY OF 2016 [...] Resp 16 Wt 64.4 kg (142 lb) EoC688% BMI 25.15 kg/m Pleasant frail adult womanin [...] OINTMENT Gerard Le PA-C documented in this encounterHocking Valley Community Hospital07-08-2022 History of Present illness Narrative* Diane [...] discussed with Physician, nurse practitioner or Physician faculty research assistant upon discharge Instructions for transmitting EKG to [facility] 3 month follow up instructions Contact number for information and questions Patient Evaluation: Verbalizes understanding Follow Up Plan: Follow up as directed by MD. Supplemental Material Given: Written Material Patient education regarding radiation exposure. Instructed By Diane Blanchard RN. In Department of CARDIOLOGY. documented in this encounterHocking Valley Community Hospital07-08-2022 Instructions* Patient Instructions* Emilia Diallo MD - 01/09/2022 2:19 PM EDT Proceed with your Watchman evaluation. Consider discussing a hematology evaluation in addition to further GI work up as appropriate. Follow up with Dr. Burdick as planned. Follow up with PCP re: prevention in addition to follow up of the kidney mass that was identified on the CT. documented in this encounterHocking Valley Community Hospital07-08-2022 History of Present illness Narrative* Emilia Diallo MD - 01/09/2022 2:15 PM EDT Images from the original note were not included. [facility] [place] Martha Meléndez Department of Cardiovascular Medicine SECTION OF CLINICAL CARDIOLOGY OUTPATIENT VISIT DATE January 09, 2022 OUTPATIENT VISIT TYPE CON PRIMARY CARE PHYSICIAN: Gerard Le [address] [place] [address] REFERRING PHYSICIAN: Chandler Swan [address] [facility] [id number] CHIEF COMPLAINT: Shared decision making for Watchman [...] 7.7. Received 2 unit(s) PRBCs last week. [id number] score: 7 (congestive heart failure, hypertension, age >/=75, diabetes, vascular disease, female) - on Xarelto 15 mg HASBLED score: 4 (HTN, CKD, bleeding, elderly) She complains of chronic shortness of breath and fatigue. She denies chest pain, orthopnea, cough, edema, palpitations, PND, lightheadedness or syncope. Nursing Intake : Ms. Berta Sanches is a 76 year old female from [place], [place] here today for preopeartive cardiovascular evaluation [...] Bilateral pneumonia No date: Cancer of cervix ([facility]) No date: Cervical cancer ([facility]) Comment: 197206/01/2015: Chest pain Comment: negative work up with nuclar stress No date: CHF (congestive heart failure) ([facility]) No date: Cholesteatoma of right ear Comment: surgical removal No date: Chronic mastoiditis of left side No date: Diabetes ([facility]) No date: Diabetes ([facility]) No date: GERD (gastroesophageal reflux disease) No [...] ESOPHAGOGASTRODUODENOSCOPY TRANSORAL DIAGNOSTIC 07/18/2019: LAP COLECTOMY, SIGMOID W/WAXING MACHINE OPERATOR; N/A Comment: for colovesicle fistula - Dr. Mosley 04/30/2015: MASTOIDECTOMY; Right Comment: cholesteatoma removed, Dr. Lua 10/2019: PACEMAKER 1974: PART. HYSTERECTOMY W/WO RMVL OVARIES/TUBES Comment: h/o cervical cancer ovaries remain 1996: PAST SURGICAL HISTORY OF Comment: Aortic valve repair, Dr. Apodaca 2001: PAST SURGICAL HISTORY OF Comment: [address] Beltrán, [facility] 2016: PAST SURGICAL HISTORY OF [...] Abs Lymph 1.00 - 4.00 k/uL 1.82 Stewart% % 14.0 Abs Stewart <0.87 k/uL 1.27 (H) Eosin% % 1.9 [...] etiology while on Xarelto. Unknown etiology. Her [id number] is elevated at 7 portenidng an increased risk of CVA and her HASBLED score is elevated. It is reasonable to consider Watchman procedure as after undergoing a LAXMI closure procedure, she will not need fpc anticoagulation which eliminates anticoagulation side effects and major bleeding risk. After today's visit with Mrs. Sanches, which was dedicated solely for shared decision making visitregarding LAXMI closure device, she decided to proceed with the LAXMI appendage closure procedure [facility] the [facility]. Of note, she should continue with [...] 09, 2022, 5:59 PM documented in this encounterHocking Valley Community Hospital07-01-2022 History and physical note * Chai [...] likely gallbladder issues. When she presented to [facility] department on February 13, 2018 she [...] She underwent upper and lower endoscopy at [facility] also for anemia on October 26, 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 Lua PACEMAKER 10/2019 PART. HYSTERECTOMY W/WO RMVL OVARIES/TUBES 1974 h/o cervical cancer ovaries remain PAST SURGICAL HISTORY OF 1996 Aortic valve repair, Dr. Apodaca PAST SURGICAL HISTORY OF 2001 [address] Beltrán, [facility] PAST SURGICAL HISTORY OF 2015 [...] entered by the nurse and reviewed by nm Nursing Notes: Stacie Mancera LPN 01/01/2022 9:48 [...] her for urgent upper endoscopy tomorrow in [place]. Diagnoses: (D50.0) Anemia, blood loss (primary encounter [...] needed. Chai Encinas MD documented in this encounterHocking Valley Community Hospital06-30-2022 Miscellaneous Notes* Telephone Encounter - Yessenia Monroe - 01/01/2022 10:27 AM EDT 01-02-2022 egd reyes documented in this encounterHocking Valley Community Hospital06-30-2022 History of Present illness Narrative* Chai [...] likely gallbladder issues. When she presented to [facility] department on February 13, 2018 she [...] She underwent upper and lower endoscopy at [facility] also for anemia on October 26, 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 Lua PACEMAKER 10/2019 PART. HYSTERECTOMY W/WO RMVL OVARIES/TUBES 1973 h/o cervical cancer ovaries remain PAST SURGICAL HISTORY OF 1996 Aortic valve repair, Dr. Apodaca PAST SURGICAL HISTORY OF 2001 [address] Beltrán, [facility] PAST SURGICAL HISTORY OF 2016 [...] entered by the nurse and reviewed by nm Nursing Notes: Stacie Mancera LPN 01/01/2022 9:48 [...] her for urgent upper endoscopy tomorrow in [place]. Diagnoses: (D50.0) Anemia, blood loss (primary encounter [...] needed. Chai Encinas MD documented in this encounterHocking Valley Community Hospital06-30-2022 Nurse Note* Stacie Mancera, GOPI - 01/01/2022 [...] 2019 Stacie Mancera LPN documented in this encounterHocking Valley Community Hospital06-27-2022 Miscellaneous Notes* Telephone Encounter - Gerard Le PA-C - 12/29/2021 4:19 PM EDT Thanks for the help! Gerard Le PA-C * Telephone Encounter - Sheree Savage Ma - 12/29/2021 3:57 PM EDT Patient is scheduled for for transfusion of 2 units packed red blood cells at [facility] for 8 am tomorrow. [facility] been [facility]. documented in this encounterHocking Valley Community Hospital06-25-2022 Miscellaneous Notes* Telephone Encounter - Sheree [...] couple of days she will go to [facility] ED. Reason for Disposition [1] MILD [...] since yesterday. Protocols used: WEAKNESS (GENERALIZED) AND HDVRMDB-DENIM-AM documented in this encounterHocking Valley Community Hospital06-25-2022 Miscellaneous Notes* Telephone Encounter - Radha Pyle RN - 12/27/2021 9:57 AM EDT Triage completed 12/27 for MC symptoms. See triage encounter. Radha Pyle RN documented in this encounterHocking Valley Community Hospital06-23-2022 Miscellaneous Notes* Telephone Encounter - Marleen [...] EDT December 25, 2021 Patient Contact Number: [phone] (home) [phone] (cell) Patient last seen within the last year: Yes Reason for Call: Medication Issue/Question: Patient states that she is supposed to decrease medication in preparation of surgery in two weeks, but she is having symptoms and is having difficulty tolorating. Thank you, Marisol Page documented in this encounterHocking Valley Community Hospital06-20-2022 Miscellaneous Notes* Telephone Encounter - Brittany [...] need schedules to follow. documented in this encounterHocking Valley Community Hospital06-13-2022 History of Present illness Narrative* Marisol Cook [...] 15, 2021 11:04 AM documented in this encounterHocking Valley Community Hospital06-13-2022 History of Present illness Narrative* Gerard Le [...] bilateral inflow resting waveforms. 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 LEFT: CCA plaque w/o significant hemodynamic stenosis, WBG43-28%%, VA patent w/antegrade, SA clear 12/02/2017 MRI/ 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 Lua PACEMAKER 10/2019 PART. HYSTERECTOMY W/WO RMVL OVARIES/TUBES 1974 h/o cervical cancer ovaries remain PAST SURGICAL HISTORY OF 1996 Aortic valve repair, Dr. Apodaca PAST SURGICAL HISTORY OF 2001 [address] Beltrán, [facility] PAST SURGICAL HISTORY OF 2016 [...] Associated With Type 2 Diabetes Mellitus ([facility]) History of Pulmonary Embolism Ascending Aorta Dilatation (Hcc) Chronic Bilateral Pleural Effusions Colovesical Fistula Renal Mass, Right Diverticulitis Large Intestine W/O Perforation Or Abscess W/O Bleeding Renal Cell Carcinoma, Right (Hcc) Iron Deficiency Anemia Hypomagnesemia Gastrointestinal Hemorrhage Associated With Acute Gastritis Esophageal Stenosis Dilated Cardiomyopathy (Hcc) Chronic Diastolic Congestive Heart Failure (Hcc) Sss (Sick Sinus Syndrome) ([facility]) Duodenal Ulcer Type 2 Diabetes Mellitus With Diabetic Peripheral Angiopathy Without Gangrene, Without Long-Term Current Use of Insulin ([facility]) Current Outpatient Medications Medication Sig Dispense [...] ICD10: D12.4 18. PAD (peripheral artery disease) ([facility]) - ICD9: 443.9, ICD10: I73.9 19. Type 2 diabetes mellitus with diabetic peripheral angiopathy without gangrene, without long-term current use of insulin ([facility]) - ICD9: 250.70, 443.81, ICD10: E11.51 Controlled. [...] LEFT Gerard Le PA-C documented in this encounterHocking Valley Community Hospital06-02-2022 Miscellaneous Notes* Telephone Encounter - Marleen [...] EDT December 03, 2021 Patient Contact Number: [phone] (home) [phone] (cell) Patient last seen within the last [...] you, Deonna Bryant, Admin documented in this encounterHocking Valley Community Hospital05-26-2022 History of Present illness Narrative* Dagmar Thomas - 11/27/2021 12:36 PM EDT set documented in this encounterHocking Valley Community Hospital05-25-2022 History of Present illness Narrative* Na Ramirez APRN.JASPREET - 11/26/2021 9:27 AM EDT VASCULAR SURGERY ESTABLISHED PATIENT SERVICE DATE: 11/26/2021 SERVICE TIME: 9:29 AM PRIMARY CARE PHYSICIAN: Gearrd Le PA-C SUBJECTIVE HISTORY OF PRESENT ILLNESS: 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 Lua PACEMAKER 10/2019 PART. HYSTERECTOMY W/WO RMVL OVARIES/TUBES 1973 h/o cervical cancer ovaries remain PAST SURGICAL HISTORY OF 1996 Aortic valve repair, Dr. Apodaca PAST SURGICAL HISTORY OF 2001 [address] Beltrán, [facility] PAST SURGICAL HISTORY OF 2015 [...] ambulation Time spent: 45 documented in this encounterHocking Valley Community Hospital04-20-2022 Miscellaneous Notes* Telephone Encounter - Marycruz Olguin [...] has been captured for this encounter? yes Marcyruz Olguin documented in this encounterHocking Valley Community Hospital03-24-2022 Miscellaneous Notes* Telephone Encounter - Sigifredo [...] to cancel the procedure on 09/29 in [place]. She thought this was cancelled about a month ago when she received a call. She stated she is so sorry. documented in this encounterHocking Valley Community Hospital03-22-2022 Miscellaneous Notes* Telephone Encounter - Inga [...] procedure. Patient stated understanding. documented in this encounterHocking Valley [facility] Past [facility] Narrative* Problem [...] get beds in local hospital, transferred to [facility]. 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 Patient had her eyes examined in [place] this year and was told that she [...] of this encounter (statuses as of 09/23/2021) [facility]08[facility] History of Past illness Narrative* Problem [...] get beds in local hospital, transferred to [facility]. Anemia 10/24/2019 09/12/2021 Last Assessment & Plan: [...] 12/22/2018 Prosthetic aortic valve stenosis 11/19/2016 12/22/2018 group home current use of antiarrhythmic medical therapy 10/20/2016 [...] diarrhea. Patient had her eyes examined in [place] this year and was told that she [...] of this encounter (statuses as of 09/26/2021) [facility]08[facility] History of Past illness Narrative* Problem [...] get beds in local hospital, transferred to [facility]. 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 Patient had her eyes examined in [place] this year and was told that she [...] of this encounter (statuses as of 10/22/2021) [facility]08[facility] History of Past illness Narrative* Problem [...] get beds in local hospital, transferred to [facility]. 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 Patient had her eyes examined in [place] this year and was told that she [...] of this encounter (statuses as of 11/17/2021) [facility] History of Past illness Narrative* Problem [...] get beds in local hospital, transferred to [facility]. 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 Patient had her eyes examined in [place] this year and was told that she [...] of this encounter (statuses as of 11/27/2021) [facility] History of Past illness Narrative* Problem [...] get beds in local hospital, transferred to [facility]. Anemia 10/24/2019 09/12/2021 Last Assessment & Plan: [...] 12/22/2018 Prosthetic aortic valve stenosis 11/19/2016 12/22/2018 group home current use of antiarrhythmic medical therapy 10/20/2016 [...] diarrhea. Patient had her eyes examined in [place] this year and was told that she [...] of this encounter (statuses as of 11/27/2021) [facility]08[facility] History of Past illness Narrative* Problem [...] get beds in local hospital, transferred to [facility]. Anemia 10/24/2019 09/12/2021 Last Assessment & Plan: [...] 12/22/2018 Prosthetic aortic valve stenosis 11/19/2016 12/22/2018 group home current use of antiarrhythmic medical therapy 10/20/2016 [...] diarrhea. Patient had her eyes examined in [place] this year and was told that she [...] of this encounter (statuses as of 12/04/2021) [facility] History of Past illness Narrative* Problem [...] get beds in local hospital, transferred to [facility]. Anemia 10/24/2019 09/12/2021 Last Assessment & Plan: [...] 12/22/2018 Prosthetic aortic valve stenosis 11/19/2016 12/22/2018 group home current use of antiarrhythmic medical therapy 10/20/2016 [...] diarrhea. Patient had her eyes examined in [place] this year and was told that she [...] of this encounter (statuses as of 12/04/2021) [facility] History of Past illness Narrative* Problem [...] get beds in local hospital, transferred to [facility]. 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 Patient had her eyes examined in [place] this year and was told that she [...] of this encounter (statuses as of 12/13/2021) [facility] History of Past illness Narrative* Problem [...] get beds in local hospital, transferred to [facility]. 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 Patient had her eyes examined in [place] this year and was told that she [...] of this encounter (statuses as of 12/15/2021) [facility] History of Past illness Narrative* Problem [...] get beds in local hospital, transferred to [facility]. 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 Patient had her eyes examined in [place] this year and was told that she [...] of this encounter (statuses as of 12/25/2021) [facility] History of Past illness Narrative* Problem [...] get beds in local hospital, transferred to [facility]. 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 Patient had her eyes examined in [place] this year and was told that she [...] of this encounter (statuses as of 12/27/2021) [facility] History of Past illness Narrative* Problem [...] get beds in local hospital, transferred to [facility]. 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 Patient had her eyes examined in [place] this year and was told that she [...] of this encounter (statuses as of 12/27/2021) [facility] History of Past illness Narrative* Problem [...] get beds in local hospital, transferred to [facility]. 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 Patient had her eyes examined in [place] this year and was told that she [...] of this encounter (statuses as of 12/29/2021) [facility] History of Past illness Narrative* Problem [...] get beds in local hospital, transferred to [facility]. 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 Patient had her eyes examined in [place] this year and was told that she [...] of this encounter (statuses as of 01/01/2022) [facility] History of Past illness Narrative* Problem [...] get beds in local hospital, transferred to [facility]. Anemia 10/24/2019 09/12/2021 Last Assessment & Plan: [...] 12/22/2018 Prosthetic aortic valve stenosis 11/19/2016 12/22/2018 group home current use of antiarrhythmic medical therapy 10/20/2016 [...] diarrhea. Patient had her eyes examined in [place] this year and was told that she [...] of this encounter (statuses as of 01/03/2022) [facility] History of Past illness Narrative* Problem [...] get beds in local hospital, transferred to [facility]. Anemia 10/24/2019 09/12/2021 Last Assessment & Plan: [...] 12/22/2018 Prosthetic aortic valve stenosis 11/19/2016 12/22/2018 group home current use of antiarrhythmic medical therapy 10/20/2016 [...] diarrhea. Patient had her eyes examined in [place] this year and was told that she [...] of this encounter (statuses as of 01/07/2022) [facility] History of Past illness Narrative* Problem [...] get beds in local hospital, transferred to [facility]. 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 Patient had her eyes examined in [place] this year and was told that she [...] of this encounter (statuses as of 01/09/2022) [facility] History of Past illness Narrative* Problem [...] get beds in local hospital, transferred to [facility]. 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 Patient had her eyes examined in [place] this year and was told that she [...] of this encounter (statuses as of 01/09/2022) [facility] History of Past illness Narrative* Problem [...] get beds in local hospital, transferred to [facility]. Anemia 10/24/2019 09/12/2021 Last Assessment & Plan: [...] 12/22/2018 Prosthetic aortic valve stenosis 11/19/2016 12/22/2018 group home current use of antiarrhythmic medical therapy 10/20/2016 [...] diarrhea. Patient had her eyes examined in [place] this year and was told that she [...] of this encounter (statuses as of 01/10/2022) [facility] History of Past illness Narrative* Problem [...] get beds in local hospital, transferred to [facility]. Anemia 10/24/2019 09/12/2021 Last Assessment & Plan: [...] 12/22/2018 Prosthetic aortic valve stenosis 11/19/2016 12/22/2018 group home current use of antiarrhythmic medical therapy 10/20/2016 [...] diarrhea. Patient had her eyes examined in [place] this year and was told that she [...] of this encounter (statuses as of 01/15/2022) [facility] History of Past illness Narrative* Problem [...] get beds in local hospital, transferred to [facility]. 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 Patient had her eyes examined in [place] this year and was told that she [...] of this encounter (statuses as of 01/16/2022) [facility] History of Past illness Narrative* Problem [...] get beds in local hospital, transferred to [facility]. Anemia 10/24/2019 09/12/2021 Last Assessment & Plan: [...] 12/22/2018 Prosthetic aortic valve stenosis 11/19/2016 12/22/2018 group home current use of antiarrhythmic medical therapy 10/20/2016 [...] diarrhea. Patient had her eyes examined in [place] this year and was told that she [...] of this encounter (statuses as of 01/20/2022) [facility] History of Past illness Narrative* Problem [...] get beds in local hospital, transferred to [facility]. 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 Patient had her eyes examined in [place] this year and was told that she [...] of this encounter (statuses as of 01/21/2022) [facility] History of Past illness Narrative* Problem [...] get beds in local hospital, transferred to [facility]. Anemia 10/24/2019 09/12/2021 Last Assessment & Plan: [...] 12/22/2018 Prosthetic aortic valve stenosis 11/19/2016 12/22/2018 group home current use of antiarrhythmic medical therapy 10/20/2016 [...] diarrhea. Patient had her eyes examined in [place] this year and was told that she [...] of this encounter (statuses as of 01/23/2022) [facility] History of Past illness Narrative* Problem [...] get beds in local hospital, transferred to [facility]. 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 Patient had her eyes examined in [place] this year and was told that she [...] of this encounter (statuses as of 02/09/2022) [facility] History of Past illness Narrative* Problem [...] get beds in local hospital, transferred to [facility]. Anemia 10/24/2019 09/12/2021 Last Assessment & Plan: [...] 12/22/2018 Prosthetic aortic valve stenosis 11/19/2016 12/22/2018 group home current use of antiarrhythmic medical therapy 10/20/2016 [...] diarrhea. Patient had her eyes examined in [place] this year and was told that she [...] of this encounter (statuses as of 02/20/2022) [facility] History of Past illness Narrative* Problem [...] get beds in local hospital, transferred to [facility]. Anemia 10/24/2019 09/12/2021 Last Assessment & Plan: [...] 12/22/2018 Prosthetic aortic valve stenosis 11/19/2016 12/22/2018 group home current use of antiarrhythmic medical therapy 10/20/2016 [...] diarrhea. Patient had her eyes examined in [place] this year and was told that she [...] of this encounter (statuses as of 02/23/2022) [facility] Dianne Stovall [facility] Note Date/Time January 11, 2025 12:3 0pm [facility] Medical Records Department [address] [place] [address] Instructions for Home/Discharge Instructions 01/11/25 1226 MR#: [id number] Acct: [id number] Name: BERTA SANCHES Rep #:[id number] : [...] Hernandez MD [Non-Staff] - Deysi Collazo NP, [employer]C [Primary Care Provider] - Disposition Disposition (needs filled in before D/C Order can be placed): Home, Self Care 01/11/25 1230<Electronically signed by Dianne Stovall DO>Dianne Stovall DO CC: [employer] Deysi Collazo; Dr. Jeremy Mcgarry MD; Dr. Radha Heller MD ~ Signed [facility] Work Phone: Evaluation note* Diagnosis PAD (peripheral artery disease) (HCC)- Primary Peripheral vascular disease, unspecified Anemia due to chronic illness Anemia of other chronic disease Atrial fibrillation, unspecified type (HCC) documented in this encounter [facility] note* Diagnosis PAD (peripheral artery disease) (HCC)- Primary Peripheral vascular disease, unspecified PVD (peripheral vascular disease) (HCC) Peripheral vascular disease, unspecified Atrial fibrillation, unspecified type (HCC) documented in this encounter [facility] note* Diagnosis Renal mass, right- Primary Unspecified [...] unspecified type (HCC) [facility] [place] [facility] Diagnosis Anemia, unspecified type- Primary Atrial fibrillation, unspecified type (HCC) [facility] [place] [facility] Diagnosis Anemia, blood loss- Primary Iron [...] unspecified type (HCC) [facility] [place] [facility]* Diagnosis Acute blood loss anemia Acute posthemorrhagic anemia Heme + stool Nonspecific abnormal finding in stool contents Epigastric pain Abdominal pain, epigastric Atrial fibrillation, unspecified type (HCC) documented in this encounter [facility] noteNo assessment information availableWPremier Health [facility] Work Phone: Evaluation note* Diagnosis Heme positive stool- Primary Nonspecific abnormal finding in stool contents Blood loss anemia Iron deficiency anemia secondary to blood loss (chronic) Atrial fibrillation, unspecified type (HCC) documented in this encounter [facility] note* Diagnosis Atrial fibrillation, unspecified type (HCC)- Primary Gastrointestinal hemorrhage, unspecified gastrointestinal hemorrhage type Anemia due to chronic blood loss Iron deficiency anemia secondary to blood loss (chronic) Other fatigue SOB (shortness of breath) Shortness of breath [facility] Diagnosis Atrial fibrillation, unspecified type (HCC)- Primary Presence of Watchman left atrial appendage closure device Herpes zoster without complication Herpes zoster without mention of complication [facility] Diagnosis Paroxysmal atrial fibrillation (HCC)- Primary Atrial fibrillation [facility] [place] [facility]* Diagnosis Paroxysmal atrial fibrillation (HCC)- Primary Atrial fibrillation Presence of Watchman left atrial appendage closure device [facility] [place] [facility]* Diagnosis Rectal bleeding- Primary Hemorrhage of rectum and anus Anemia, blood loss Iron deficiency anemia secondary to blood loss (chronic) Diarrhea, unspecified type [facility] Diagnosis Longstanding persistent atrial fibrillation (HCC)- Primary Presence of Watchman left atrial appendage closure device [facility] [place] [facility]* Diagnosis Acute combined systolic and diastolic [...] Unspecified essential hypertension [facility] Diagnosis History of prosthetic aortic valve [...] of cerebral infarction [facility] Diagnosis Right renal mass Unspecified disorder of kidney and ureter [facility] Diagnosis Paroxysmal atrial fibrillation (HCC) Atrial fibrillation Presence of Watchman left atrial appendage closure device [facility] [place] [facility]* Diagnosis Hospital discharge follow-up- Primary Other [...] vascular disease, unspecified [facility] Diagnosis Lung nodule, solitary- Primary Solitary pulmonary nodule [facility] Diagnosis Heme + stool Nonspecific abnormal [...] and unspecified hyperlipidemia [facility] Primary hypertension Unspecified essential hypertension [facility] [place] [facility]* Diagnosis S/P placement of cardiac pacemaker- [...] of insulin (HCC) [facility] Diagnosis Bilateral carotid artery stenosis- Primary Occlusion and stenosis of carotid artery without mention of cerebral infarction Atherosclerosis of [place] artery of both lower extremities with intermittent claudication (HCC) Atherosclerosis of [place] arteries of the extremities with intermittent claudication [...] kidney and ureter [facility] Closed nondisplaced fracture of fifth metatarsal bone of right foot with routine healing, subsequent encounter- Primary [facility] Diagnosis Influenza-like illness- Primary Influenza with other respiratory manifestations [facility] Diagnosis 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)- Primary Chronic combined systolic and diastolic heart failure Dilated cardiomyopathy (HCC) Other primary cardiomyopathies [facility] Diagnosis SSS (sick sinus syndrome) [...] vitamin D deficiency [facility] [place] [facility]* Diagnosis Borderline anemia- Primary Acute systolic congestive heart failure (HCC) Acute systolic heart failure [facility] Diagnosis Acute systolic CHF (congestive heart failure) (HCC)- Primary Acute systolic heart failure Rheumatic tricuspid valve regurgitation Diseases of tricuspid valve Diuresis excessive Polyuria 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) Chronic combined systolic and diastolic heart failure Dilated cardiomyopathy (HCC) Other primary cardiomyopathies Longstanding persistent atrial fibrillation (HCC) SSS (sick sinus syndrome) ([facility]) Sinoatrial node dysfunction S/P placement of cardiac pacemaker Cardiac pacemaker in situ Acute hip pain, right Piriformis syndrome, right Bilateral knee effusions Effusion of lower leg joint Primary osteoarthritis of both knees Primary localized osteoarthrosis, lower leg [facility] [place] [facility]* Diagnosis Acute HFrEF (heart failure with reduced ejection fraction) ([facility])- Primary VHD (valvular heart disease) Endocarditis, valve unspecified, unspecified cause Nonrheumatic tricuspid valve regurgitation Tricuspid valve disorders, specified as nonrheumatic Nonrheumatic mitral valve regurgitation Persistent atrial fibrillation (HCC) Atrial fibrillation Pacemaker Cardiac pacemaker in situ [facility] Diagnosis Venous insufficiency- Primary Unspecified venous (peripheral) insufficiency [facility] Diagnosis Venous insufficiency- Primary Unspecified venous (peripheral) insufficiency [facility] [place] [facility]* Diagnosis Iron 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- Primary Iron malabsorption Other specified intestinal malabsorption [facility] [place] [facility]* Diagnosis Acute systolic CHF (congestive heart failure) (HCC)- Primary Acute systolic heart failure Hyponatremia Hyposmolality and/or hyponatremia Hypokalemia Hypopotassemia [facility] Diagnosis Chronic diastolic congestive heart failure (HCC)- Primary Chronic diastolic heart failure Primary hypertension Unspecified essential hypertension SSS (sick sinus syndrome) ([facility]) Sinoatrial node dysfunction Longstanding persistent atrial fibrillation (HCC) Acute systolic CHF (congestive heart failure) (HCC) Acute systolic heart failure [facility] Diagnosis URI, acute- Primary Acute upper respiratory infections of unspecified site [facility] [place]* Diagnosis History of prosthetic aortic valve replacement- Primary Heart valve replaced by other means H/O rheumatic heart disease Personal history of other diseases of circulatory system Longstanding persistent atrial fibrillation (HCC) Ascending aorta dilatation (HCC) Thoracic aortic ectasia Dilated cardiomyopathy (HCC) Other primary cardiomyopathies Aortic prosthetic valve regurgitation, subsequent encounter Chronic diastolic (congestive) heart failure (HCC) SSS (sick sinus syndrome) ([facility]) Sinoatrial node dysfunction Primary hypertension Unspecified essential hypertension Hyperlipidemia with target LDL less than 70 Other and unspecified hyperlipidemia S/P placement of cardiac pacemaker Cardiac pacemaker in situ PAD (peripheral artery disease) ([facility]) Peripheral vascular disease, unspecified Acute systolic CHF (congestive heart failure) ([facility]) Acute systolic heart failure documented [facility] [place] [facility]* Diagnosis Chronic diastolic congestive heart failure (HCC)- Primary Chronic diastolic heart failure documented in this encounter [facility] [place] [facility]* Diagnosis Chronic kidney disease, unspecified CKD stage- Primary documented in this encounter [facility] note* Diagnosis SOB (shortness of breath)- [...] Coronary atherosclerosis of unspecified type of vessel, stockbridge or graft SUMMARY Hyperlipidemia LDL goal < [...] systolic heart failure [facility] [place] [facility]* Diagnosis SOB (shortness of breath)- Primary [...] Coronary atherosclerosis of unspecified type of vessel, stockbridge or graft SUMMARY Hyperlipidemia LDL goal < [...] healing, subsequent encounter [facility] [place] [facility]* Diagnosis SOB (shortness of breath)- Primary [...] Coronary atherosclerosis of unspecified type of vessel, stockbridge or graft SUMMARY Hyperlipidemia LDL goal < [...] right middle finger documented in this encounter [facility] [place] [facility]* Diagnosis SOB (shortness of breath)- Primary [...] Coronary atherosclerosis of unspecified type of vessel, stockbridge or graft SUMMARY Hyperlipidemia LDL goal < [...] type, unspecified whether acute cor pulmonale present ([facility]) Iron deficiency anemia- Primary Iron deficiency anemia, [...] of left side [facility] Diagnosis SOB (shortness of breath)- [...] Coronary atherosclerosis of unspecified type of vessel, stockbridge or graft SUMMARY Hyperlipidemia LDL goal < [...] atrial fibrillation (HCC) [facility] [place] [facility]* Diagnosis SOB (shortness of breath)- Primary [...] Coronary atherosclerosis of unspecified type of vessel, stockbridge or graft SUMMARY Hyperlipidemia LDL goal < [...] Other follow-up examination documented in this encounter [facility] [place] [facility]* Diagnosis SOB (shortness of breath)- Primary [...] Coronary atherosclerosis of unspecified type of vessel, stockbridge or graft SUMMARY Hyperlipidemia LDL goal < [...] kidney disease (HCC) documented in this encounter [facility] note* Diagnosis SOB (shortness of breath)- [...] Coronary atherosclerosis of unspecified type of vessel, stockbridge or graft SUMMARY Hyperlipidemia LDL goal < [...] Thoracic aortic ectasia Longstanding persistent atrial fibrillation ([facility]) S/P placement of cardiac pacemaker Cardiac pacemaker in situ PAD (peripheral artery disease) Peripheral vascular disease, unspecified 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[facility]) Acute vascular insufficiency of intestine Hyperlipidemia with target LDL less than 70 Other and unspecified hyperlipidemia Primary hypertension Unspecified essential hypertension Bilateral carotid artery stenosis Occlusion and stenosis of carotid artery without mention of cerebral infarction documented in this encounter [facility] [place] [facility]* Diagnosis SOB (shortness of breath)- Primary [...] Coronary atherosclerosis of unspecified type of vessel, stockbridge or graft SUMMARY Hyperlipidemia LDL goal < [...] diastolic heart failure [facility] Diagnosis SOB (shortness of breath)- [...] Coronary atherosclerosis of unspecified type of vessel, stockbridge or graft SUMMARY Hyperlipidemia LDL goal < [...] insufficiency of intestine documented in this encounter [facility] [place] [facility]* Diagnosis SOB (shortness of breath)- Primary [...] Coronary atherosclerosis of unspecified type of vessel, stockbridge or graft SUMMARY Hyperlipidemia LDL goal < [...] type, unspecified whether acute cor pulmonale present ([facility]) Gastrointestinal hemorrhage, unspecified gastrointestinal hemorrhage [...] Unspecified essential hypertension SSS (sick sinus syndrome) ([facility]) Sinoatrial node dysfunction Longstanding persistent atrial fibrillation ([facility]) [facility] Diagnosis SOB (shortness of breath)- [...] Coronary atherosclerosis of unspecified type of vessel, stockbridge or graft SUMMARY Hyperlipidemia LDL goal < [...] insufficiency of intestine [facility] Diagnosis SOB (shortness of breath)- [...] Coronary atherosclerosis of unspecified type of vessel, stockbridge or graft SUMMARY Hyperlipidemia LDL goal < [...] and unspecified hyperlipidemia [facility] Diagnosis Onset Date Resolution Status Admit Date CHF exacerbation acute January 4:29pm [facility] Work Phone: History and physical note Author Radha Heller [facility] Note Date/Time January 07, 2025 4:35p m [facility] Medical Records Department [address] [place] [address] H&P Exam - Hospitalist 01/07/25 1629 MR#: [id number] Acct: [id number] Name: BERTA SANCHES Rep #:[id number] : [...] post Watchman device, congestive heart failure presented [facility] ED 01/07/2025 with several weeks of [...] without improvement. 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 ROS otherwise negative [facility] Medical History Anxiety Brain aneurysm [...] % (Auto) 59.8, Lymph % (Auto) 24.2, Stewart % (Auto) 12.9 H, Eos % (Auto) [...] Sens 71 H*, [place] [address] H 01/07/25 14:54: Troponin T Hi Sens 2 Hr 68 H* Imaging Radiology Impression Chest X-Ray 01/07/25 13:19 IMPRESSION: Findings consistent with mild congestive heart failure. Reading Location: [facility] Assessment & Plan Assessment/Plan (1) CHF exacerbation: [...] Heller MD Charges/Coding Visit Charges Inpatient E&M: 53560 Init Hosp L2 01/07/25 1635 <Electronically signed by Radha Heller MD> Cosigner Signature (if applicable): CC: JARROD Collazo; Dr. Radha Heller MD~ Signed [facility] Work Phone: Hospital Discharge instructionsAdditional Instructions [facility]: [facility] Phone: Hospital Discharge instructionsAdditional Instructions Follow-up with your doctor next week. Continue to use your bumetanide and your metolazone for your fluid retention. Follow-up with Dr. Flores early next week to ensure you are improving. Return to the emergency department if you are feeling worse.[facility] Work Phone: Hospital Discharge instructionsAdditional Instructions Please [...] the ER should you have any further [facility] Work Phone: Progress note Author Ric Noriega [facility] Note Date/Time April 24, 2025 4 :45pm [facility] [address] [place] [address] OFFICE VISIT Date of Service: 04/24/25 1525 MR#: [id number] Acct: [id number] Name: BERTA SANCHES Rep #: [id number] : 1945 From: Ric champion MD Age/Sex: 79/F Location: [facility] Status: Signed HPI Subjective Date of Service [...] she was placed on PPI therapy since. 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 Ric Noriega MD Fraud Manager, [facility] Divisions of Medical Oncology & Hematology Department of Internal Medicine [facility] [address] [address] This note was generated using a voice [...] applicable) CC: Dr. Vincent Flores MD ~ [place] [facility] Work Phone: Reason for referral (narrative)* Diagnostic Procedure Only (Routine) - Closed Specialty Diagnoses / Procedures Referred By Leilani ng Referred To Contact XR IMAGING Diagnoses Ischial bursitis of left side Procedures XR HIP GENERAL 3V PELV/AP/LAT LEFT RADEX HIP UNILATERAL WITH PELVIS 2-3 VIEWS Gerard Le PA-C [address] [place] [address] Xr Imaging Referral ID Status Reason Start Date Expiration Date V isits Requested Visits Authorized [id number] Closed Auto-Generate d Referral 12/15/2021 01/14/2023 1 1 [facility] for referral (narrative)* Outpatient Procedure (Routine) - Pending Review Specialty Diagnoses / Procedures Referred By Contyesenia ng Referred To Contact [facility] Diagnoses Acute blood loss anemia Heme + stool Epigastric pain Procedures EGD DIAGNOSTIC ESOPHAGOGASTRODUODENOSC OPY TRANSORAL DIAGNOSTIC REFERRAL TO [facility] FINANCIAL COUNSELOR Chai Encinas MD [address] [place] [address] [facility] [address] [place] [address] Referral ID Status Reason Start Date Expiration Date Visits Requested Visits Authorized [id number] Pending Review Auto-Generated Referral 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 OON Notification Letter Patient Cleared - Admin/Kosher Butcher/D irector advise to proceed 04/01/2022 1 1 T [facility] for referral (narrative)* Outpatient Procedure (Routine) - Closed Specialty Diagnoses / Procedures Referred By Leilani ng Referred To Contact Diagnoses Acute blood loss anemia Heme + stool Epigastric pain Procedures EGD DIAGNOSTIC ESOPHAGOGASTRODUODENOSCOPY TRANSORAL DIAGNOSTIC REFERRAL TO [facility] FINANCIAL COUNSELOR Chai Encinas MD [address] [place] [address] [facility] Disease [address] [place] [address] Referral ID Status Reason Start Date Expiration Date Visits Requested Visits Authorized [id number] Closed Auto-Generated Referral 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 OON Notification Letter Patient Cleared - Admin/Kosher Butcher/D irector advise to proceed 01/01/2022 07/04/2022 1 1 T [facility] for referral (narrative)* Outpatient Procedure (Routine) - Pending Review Specialty Diagnoses / Procedures Referred By Leilani ng Referred To Contact [facility] Diagnoses Paroxysmal atrial fibrillation (HCC) Procedures ECHO TRANSESOPHAGEAL ECHO TRANSESOPHAG R-T 2D W/PRB IMG LINUS I&R Candi Beauchamp, TERI.SOCIAL SCIENCE INSTRUCTOR [address] [place] [address] [facility] [place] [address] [place] [address] Referral ID Status Reason Start Date Expiration Date Visits Requested Visits Authorized [id number] Pending Review Auto-Generat ed Referral 01/21/2022 01/21/2023 1 1 * Outpatient Procedure (Routine) - Pending Review Specialty Diagnoses / Procedures Referred By Contac t Referred To Contact [facility] Diagnoses Paroxysmal atrial fibrillation (HCC) Procedures ECG COMPLETE ECG ROUTINE ECG W/LEAST 12 LDS W/I&R Candi Beauchamp APRN.SOCIAL SCIENCE INSTRUCTOR [address], [address] [place] [id number] [facility] [place] [address] [place] [id number] Referral ID Status Reason Start Date Expiration Date Visits Requested Visits Authorized [id number] Pending Review Auto-Generat ed Referral 01/21/2022 01/21/2023 1 1 * Outpatient Procedure (Routine) - Pending Review Specialty Diagnoses / Procedures Referred By Contac t Referred To Contact [facility] Diagnoses Paroxysmal atrial fibrillation (HCC) Procedures ECHO TRANSESOPHAGEAL ECHO TRANSESOPHAG R-T 2D W/PRB IMG ACQUISGlenna I&R Candi Beauchamp APRN.SOCIAL SCIENCE INSTRUCTOR [address] [facility] [place] [address] [facility] [place] [address] [place] [id number] Referral ID Status Reason Start Date Expiration Date Visits Requested Visits Authorized [id number] Pending Review Auto-Generat ed Referral 01/21/2022 01/21/2023 1 1 [facility] for referral (narrative)* Outpatient Procedure (Routine) - Pending Review Specialty Diagnoses / Procedures Referred By Contac t Referred To Contact [facility] Diagnoses Paroxysmal atrial fibrillation (HCC) Presence of Watchman left atrial appendage closure device Procedures ECHO TRANSESOPHAGEAL ECHO TRANSESOPHAG R-T 2D W/PRB IMG ACQUISJ I&R Candi Beauchamp APRN.SOCIAL SCIENCE INSTRUCTOR [address], GERM[address] [place] [address] [facility] [place] [address] [place] [address] Referral ID Status Reason Start Date Expiration Date Visits Requested Visits Authorized [id number] Pending Review Auto-Generat ed Referral 02/09/2022 02/09/2023 1 1 * Outpatient Procedure (Routine) - Pending Review Specialty Diagnoses / Procedures Referred By Contac t Referred To Contact [facility] Diagnoses Paroxysmal atrial fibrillation (HCC) Presence of Watchman left atrial appendage closure device Procedures ECG COMPLETE ECG ROUTINE ECG W/LEAST 12 LDS W/I&R Candi Beauchamp APRN.SOCIAL SCIENCE INSTRUCTOR [address], [address] [place] [address] [facility] [place] [address] [place] [address] Referral ID Status Reason Start Date Expiration Date Visits Requested Visits Authorized [id number] Pending Review Auto-Generat ed Referral 02/09/2022 02/09/2023 1 1 * Outpatient Procedure (Routine) - Pending Review Specialty Diagnoses / Procedures Referred By Contac t Referred To Contact [facility] Diagnoses Paroxysmal atrial fibrillation (HCC) Presence of Watchman left atrial appendage closure device Procedures ECHO TRANSESOPHAGEAL ECHO TRANSESOPHAG R-T 2D W/PRB IMG LINUS I&R Candi Beauchamp APRN.SOCIAL SCIENCE INSTRUCTOR [address], [address] [place] [address] [facility] [place] [address] [place] [address] Referral ID Status Reason Start Date Expiration Date Visits Requested Visits Authorized [id number] Pending Review Auto-Generat ed Referral 02/09/2022 02/09/2023 1 1 [facility] for referral (narrative)* Outpatient Procedure (Routine) - Pending Review Specialty Diagnoses / Procedures [facility] To Contact [facility] Diagnoses Longstanding persistent atrial fibrillation (HCC) Presence of Watchman left atrial appendage closure device Procedures ECHO TRANSESOPHAGEAL ECHO TRANSESOPHAG R-T 2D W/PRB IMG ACQUISGlenna I&R Radha Torres APRN.CNP [address] [place] [address] [facility] [address] [place] [address] Referral ID Status Reason Start Date Expiration Date Visits Requested Visits Authorized [id number] Pending Review Auto-Generat ed Referral 03/04/2022 03/04/2023 1 1 [facility] for referral (narrative)* Outpatient Procedure (Routine) - Authorized Specialty Diagnoses / Procedures [facility] Referred To Contact [facility] Diagnoses Aortic prosthetic valve regurgitation, 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) Procedures ECG COMPLETE ECG ROUTINE ECG W/LEAST 12 LDS W/I&R Gerard Le PA-C [address] [place] [address] [id number] [place] [address] Referral ID Status Reason Start Date Expiration Date Visits Requested Visits Authorized [id number] Authorized Auto-Generat ed Referral 03/19/2022 03/19/2023 1 1 [facility] for referral (narrative)* Diagnostic Procedure Only (Routine) - Authorized Specialty Diagnoses / Procedures [facility] Referred To Contact US IMAGING Diagnoses Neoplasm of uncertain behavior of right kidney Procedures US KIDNEY/BLADDER US RETROPERITONEAL REAL TIME W/IMAGE COMPLETE Brayan Chicas MD [address] [place] [address] Us Imaging Referral ID Status Reason Start Date Expiration Date Visits Requested Visits Authorized [id number] Authorized Auto-Generat ed Referral 09/02/2022 05/09/2023 1 1 [facility] for referral (narrative)* Outpatient Procedure (Routine) - Authorized Specialty Diagnoses / Procedures Referred By Contac t Referred To Contact [facility] Diagnoses History of prosthetic aortic valve replacement H/O rheumatic heart disease Procedures ECHO ECHO TTHRC R-T 2D W/WOM-MODE COMPL SPEC&COLR D Carla Burdick MD [address] [place] [address] [address] Referral ID Status Reason Start Date Expiration Date Visits Requested Visits Authorized [id number] Authorized Auto-Generat ed Referral 03/05/2023 09/28/2023 1 1 [facility] for referral (narrative)* Outpatient Procedure (Routine) - Pending Review Specialty Diagnoses / Procedures Referred By Contac t Referred To [facility] Diagnoses 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HCC) Pain in both lower legs Atherosclerosis of stockbridge artery of both lower extremities with intermittent claudication (HCC) Procedures PVR LEG [facility] NON-INVASIVE PHYSIOLOGIC STUDY EXTREMITY 3 Gerard Borges PA-C [address] [place] [address] [facility] [address] [address] Referral ID Status Reason Start Date Expiration Date Visits Requested Visits Authorized [id number] Pending Review Auto-Generat ed Referral 01/07/2023 01/07/2024 1 1 * Outpatient Procedure (Routine) - Pending Review Specialty Diagnoses / Procedures Referred By Contac t Referred To [facility] Diagnoses 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HCC) Pain in both lower legs Atherosclerosis of stockbridge artery of both lower extremities with intermittent claudication (HCC) Procedures PVR ANK PRESS [facility] NON-INVAS PHYSIOLOGIC STD EXTREMITY ART 2 LEVEL Gerard Le PA-C [address] [place] [address] [facility] [place] [address] [place] [address] Referral ID Status Reason Start Date Expiration Date Visits Requested Visits Authorized [id number] Pending Review Auto-Generat ed Referral 01/07/2023 01/07/2024 1 1 * Outpatient Procedure (Routine) - Authorized Specialty Diagnoses / Procedures Referred By Contac t Referred To Contact [facility] Diagnoses Bilateral carotid artery stenosis Procedures US CAROTID ARTERIES [facility] DUPLEX SCAN EXTRACRANIAL ART COMPL BI STUDY Gerard Le PA-C [address] [place] [address] [facility] [address] [place] [address] Referral ID Status Reason Start Date Expiration Date Visits Requested Visits Authorized [id number] Authorized Auto-Generat ed Referral 01/07/2023 01/07/2024 1 1 [facility] for referral (narrative)* Diagnostic Procedure Only (Routine) - Closed Specialty Diagnoses / Procedures [facility] Referred To Contact US IMAGING Diagnoses Neoplasm of uncertain behavior of right kidney Procedures US KIDNEY/BLADDER US RETROPERITONEAL REAL TIME W/IMAGE COMPLETE Brayan Chicas MD [address] [place] [address] Us Imaging [facility] Referral ID Status Reason Start Date Expiration Date V isits Requested Visits Authorized [id number] Closed Auto-Generate d Referral 09/02/2022 05/09/2023 1 1 [facility] for referral (narrative)* Outpatient Procedure (Routine) - Authorized Specialty Diagnoses / Procedures Referred By Contac t Referred To Contact [facility] Diagnoses Acute systolic CHF (congestive heart failure) (HCC) Procedures ECHO ECHO TTHRC R-T 2D W/WOM-MODE COMPL SPEC&COLR D Gerard Le PA-C [address] [place] [address] [facility] [address] [place] [address] Referral ID Status Reason Start Date Expiration Date Visits Requested Visits Authorized [id number] Authorized Auto-Generat ed Referral 10/18/2023 10/17/2024 1 1 * Outpatient Procedure (Routine) - Pending Review Specialty Diagnoses / Procedures Referred By Contac t Referred To Contact [facility] Diagnoses Acute systolic CHF (congestive heart failure) (HCC) Procedures ECG COMPLETE ECG ROUTINE ECG W/LEAST 12 LDS W/I&R Gerard Le PA-C [address] [place] [address] [address] Referral ID Status Reason Start Date Expiration Date Visits Requested Visits Authorized [id number] Pending Review Auto-Generat ed Referral 10/18/2023 10/17/2024 1 1 [facility] for referral (narrative)* Outpatient Procedure (Routine) - Closed Specialty Diagnoses / Procedures Referred By Contac t Referred To Contact [facility] Diagnoses Venous insufficiency Procedures US LEG VEIN DVT [facility] DUP-SCAN XTR VEINS COMPLETE BILATERAL STUDY Lars Silva DO [address] [place] [address] [address] Referral ID Status Reason Start Date Expiration Date V isits Requested Visits Authorized [id number] Closed Auto-Generate d Referral 10/14/2023 10/13/2024 1 1 [facility] for referral (narrative)* Diagnostic Procedure Only (Routine) - Closed Specialty Diagnoses / Procedures Referred By Contac t Referred To Contact XR IMAGING Diagnoses Closed nondisplaced fracture of fifth metatarsal bone of right foot with routine healing, subsequent encounter Procedures XR FOOT GENERAL 3V AP/LAT/OBL RIGHT RADEX FOOT COMPLETE MINIMUM 3 VIEWS Gerard Le PA-C [address] [place] [address] [place] [address] Referral ID Status Reason Start Date Expiration Date V isits Requested Visits Authorized [id number] Closed Auto-Generate d Referral 06/01/2023 06/30/2024 1 1 [facility] for referral (narrative)* Diagnostic Procedure Only (Routine) - Closed Specialty Diagnoses / Procedures Referred By Contac t Referred To Contact XR IMAGING Diagnoses Pain of right middle finger Procedures XR DIGIT GENERAL 3V FRONTAL/LAT/OBL RIGHT RADEX FINGR MINIMUM 2 VIEWS Gerard Le PA-C [address] [place] [address] [place] [address] Referral ID Status Reason Start Date Expiration Date V isits Requested Visits Authorized [id number] Closed Auto-Generate d Referral 04/12/2023 05/11/2024 1 1 [facility] for referral (narrative)* Diagnostic Procedure Only (Routine) - Closed Specialty Diagnoses / Procedures Referred By Contac t Referred To Contact XR IMAGING Diagnoses Ischial bursitis of left side Procedures XR HIP GENERAL 3V PELV/AP/LAT LEFT RADEX HIP UNILATERAL WITH PELVIS 2-3 VIEWS Gerard Le PA-C [address] [place] [address] [place] [address] Referral ID Status Reason Start Date Expiration Date V isits Requested Visits Authorized [id number] Closed Auto-Generate d Referral 12/15/2021 01/14/2023 1 1 [facility] for referral (narrative)No reason for referral information availableWPremier [facility] Work Phone: Reason for visit Narrative* Outpatient Procedure (Routine) - Closed Specialty Diagnoses / Procedures Referred By Leilani t Referred To Contact Diagnoses Acute blood loss anemia Heme + stool Epigastric pain Procedures EGD DIAGNOSTIC ESOPHAGOGASTRODUODENOSCOPY TRANSORAL DIAGNOSTIC REFERRAL TO [facility] FINANCIAL COUNSELOR Chai Encinas MD [address] [place] [address] [facility] [place] [address] [phone] Referral ID Status Reason Start Date Expiration Date Visits Requested Visits Authorized [id number] Closed Auto-Generated Referral 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 OON Notification Letter Patient Cleared - Admin/Kosher Butcher/D irector advise to proceed 01/01/2022 07/04/2022 1 1 [facility] for visit Narrative* Diagnostic Procedure Only (Routine) - Closed Specialty Diagnoses / Procedures Referred By Leilani Referred To Contact Laboratory Medicine / LAB COVID TESTING LL Lot Diagnoses Paroxysmal atrial fibrillation PRE-PROCEDURE & PRE-OPERATIVE COVID Paroxysmal atrial fibrillation (HCC) [I48.0] Procedures COVID19 LAB COVID Chandler Swan MD [address] [place] [address] [place] [address] [address] [place] [address] Referral ID Status Reason Start Date Expiration Date Visits Re quested Visits Authorized [id number] Closed 01/09/2022 07/04/2022 1 1 [facility] for visit Narrative* Diagnostic Procedure Only (Routine) - Closed Specialty Diagnoses / Procedures Referred By Leilani Referred To Contact [facility] Diagnoses Paroxysmal atrial fibrillation (HCC) Presence of Watchman left atrial appendage closure device Procedures ECHO TRANSESOPHAGEAL ECHO TRANSESOPHAG R-T 2D W/PRB IMG LINUS I&R Candi Beauchamp APRN.SOCIAL SCIENCE INSTRUCTOR [address] [facility] [address] [place] [address] [facility] [place] [address] [place] [address] Referral ID Status Reason Start Date Expiration Date V isits Requested Visits Authorized [id number] Closed Auto-Generate d Referral 02/09/2022 07/04/2022 1 1 [facility] for visit Narrative* Diagnostic Procedure Only (Routine) - Closed Specialty Diagnoses / Procedures Referred By Contac t Referred To Contact XR IMAGING Diagnoses Closed nondisplaced fracture of fifth metatarsal bone of right foot with routine healing, subsequent encounter Procedures XR FOOT GENERAL 3V AP/LAT/OBL RIGHT RADEX FOOT COMPLETE MINIMUM 3 VIEWS Gerard Le PA-C [address] [place] [address] [place] [address] Referral ID Status Reason Start Date Expiration Date V isits Requested Visits Authorized [id number] Closed Auto-Generate d Referral 06/01/2023 06/30/2024 1 1 [facility] for visit Narrative* Diagnostic Procedure Only (Routine) - Closed Specialty Diagnoses / Procedures Referred By Contac t Referred To Contact XR IMAGING Diagnoses Pain of right middle finger Procedures XR DIGIT GENERAL 3V FRONTAL/LAT/OBL RIGHT RADEX FINGR MINIMUM 2 VIEWS Gerard Le PA-C [address] [place] [address] [place] [address] Referral ID Status Reason Start Date Expiration Date V isits Requested Visits Authorized [id number] Closed Auto-Generate d Referral 04/12/2023 05/11/2024 1 1 [facility] for visit Narrative* Diagnostic Procedure Only (Routine) - Closed Specialty Diagnoses / Procedures Referred By Contac t Referred To Contact XR IMAGING Diagnoses Ischial bursitis of left side Procedures XR HIP GENERAL 3V PELV/AP/LAT LEFT RADEX HIP UNILATERAL WITH PELVIS 2-3 VIEWS Gerard Le PA-C [address] [place] [address] [place] [address] Referral ID Status Reason Start Date Expiration Date V isits Requested Visits Authorized [id number] Closed Auto-Generate d Referral 12/15/2021 01/14/2023 1 1 [facility] Summary Purpose Family History Relationship Condition Age [...] Documents on File Type Date Recorded Patient Currency Exchange Specialist Expl anation Advance Directive(s) 02/26/2021 11:31 AM Advance Directive(s) 10/02/2020 4:46 PM Advance Directive(s) 10/24/2019 6:40 PM Advance Directive(s) 07/18/2019 8:41 AM Advance Directive(s) 06/21/2019 9:34 AM Advance Directive(s) 05/04/2019 8:22 AM Advance Directive(s) 03/22/2019 7:15 AM Advance Directive(s) 08/31/2015 1:42 PM Advance Directive(s) 08/20/2015 4:21 PM Documents on File Type Date Recorded Patient Currency Exchange Specialist Expl anation Advance Directive(s) 02/26/2021 11:31 AM Advance Directive(s) 10/02/2020 4:46 PM Advance Directive(s) 10/24/2019 6:40 PM Advance Directive(s) 07/18/2019 8:41 AM Advance Directive(s) 06/21/2019 9:34 AM Advance Directive(s) 05/04/2019 8:22 AM Advance Directive(s) 03/22/2019 7:15 AM Advance Directive(s) 08/31/2015 1:42 PM Advance Directive(s) 08/20/2015 4:21 PM Documents on File Type Date Recorded Patient Currency Exchange Specialist Expl anation Advance Directive(s) 12/23/2021 1:13 PM Advance Directive(s) 02/26/2021 11:31 AM Advance Directive(s) 10/02/2020 4:46 PM Advance Directive(s) 10/24/2019 6:40 PM Advance Directive(s) 07/18/2019 8:41 AM Advance Directive(s) 06/21/2019 9:34 AM Advance Directive(s) 05/04/2019 8:22 AM Advance Directive(s) 03/22/2019 7:15 AM Advance Directive(s) 08/31/2015 1:42 PM Advance Directive(s) 08/20/2015 4:21 PM Documents on File Type Date Recorded Patient Currency Exchange Specialist Expl anation Advance Directive(s) 12/23/2021 1:13 PM Advance Directive(s) 02/26/2021 11:31 AM Advance Directive(s) 10/02/2020 4:46 PM Advance Directive(s) 10/24/2019 6:40 PM Advance Directive(s) 07/18/2019 8:41 AM Advance Directive(s) 06/21/2019 9:34 AM Advance Directive(s) 05/04/2019 8:22 AM Advance Directive(s) 03/22/2019 7:15 AM Advance Directive(s) 08/31/2015 1:42 PM Advance Directive(s) 08/20/2015 4:21 PM Documents on File Type Date Recorded Patient Currency Exchange Specialist Expl anation Advance Directive(s) 01/02/2022 8:28 AM [...] Will No February 13 6:44pm Power of Watch Repairer No February 13, 2 021 6:44pm Documents on File Type Date Recorded Patient Currency Exchange Specialist Expl anation Advance Directive(s) 01/02/2022 8:28 AM [...] Do you have a Healthcare Power of Watch Repairer? Yes January 07, 2025 1:29pm Advance Directives No July 13, 2015 4:56pm Advance Directive Response Recorded Date/ Time Do you have a Healthcare Power of Watch Repairer? Yes January 07, 2025 5:54pm Advance Directives No July 13, 2015 4:56pm Advance Directive Response Recorded Date/ Time Do you have a Healthcare Power of Watch Repairer? Yes January 07, 2025 5:54pm Do you have a Healthcare Power of Watch Repairer? Yes February 16, 2025 12:03pm Name of Medical Power of Watch Repairer February 16, 2025 12:03pm Advance Directives No July 13, 2015 4:56pm Advance Directive Response Recorded Date/ Time Do you have a Healthcare Power of Watch Repairer? Yes January 07, 2025 5:54pm Do you have a Healthcare Power of Watch Repairer? Yes February 16, 2025 12:03pm Name of Medical Power of Watch Repairer February 16, 2025 12:03pm Do you have a Healthcare Power of Watch Repairer? Yes March 22, 2025 3:36am Advance Directives No July 13, 2015 4:56pm Advance Directive Response Recorded Date/ Time Do you have a Healthcare Power of Watch Repairer? Yes February 16, 2025 11:03am Name of Medical Power of Watch Repairer February 16, 2025 11:03am Do you have a Healthcare Power of Watch Repairer? Yes March 22, 2025 2:36am Advance Directives [...] atrial fibrillation. Previously seen by me at [facility]. 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 Dr. Washington at [facility] contacted. Mars Chung DO 01/19/2019 1:54 PM documented in this encounter Assessments Diagnosis Persistent atrial fibrillation- Primary Atrial fibrillation group home current use of antiarrhythmic medical therapy Moderate mitral regurgitation Mitral valve disorders Status post aortic valve replacement with tissue valve Heart valve replaced by other means Medications Administered Section Inactive Administered Medications - up to 3 most recent administrations Medication Order MAR Action Action Date Dose Rate Site benzocaine 20% 4 [place] (TOPEX) 4 [place], TOPICAL, ONCE, 1 dose, On Wed01/02/22 at [...] EXACERBATION January 11, 2025 12:3 0pm Stroke [facility] 7/6 ([place]re[place]) February 05, 2025 8:53am [...] EXACERBATION January 11, 2025 12:3 0pm Stroke [facility] 7/6 (Elaine) February 05, 2025 8:53am [...] EXACERBATION January 11, 2025 12:3 0pm Stroke [facility] 7/6 (Elaine) February 05, 2025 8:53am Pacer Check Remote [place] 7th, 2025 9:0 0am Establish Pacer Care February 08, 2025 9: 56am Chief Complaint Admit Date CHF EXACERBATION January 07, 2025 4:29p m CHF EXACERBATION January 08, 2025 6:49p m CHF EXACERBATION January 09, 2025 2:34p m CHF EXACERBATION January 10, 2025 6:23p m CHF EXACERBATION January 11, 2025 12:3 0pm Stroke [facility] 7/6 (Tere[place]) February 05, 2025 8:53am [...] EXACERBATION January 11, 2025 12:3 0pm Stroke [facility] 7/6 ([place]) February 05, 2025 8:53am [...] EXACERBATION January 11, 2025 12:3 0pm Stroke [facility] 7/6 ([place]) February 05, 2025 8:53am [...] EXACERBATION January 11, 2025 12:3 0pm Stroke [facility] 7/6 ([place]) February 05, 2025 8:53am [...] 2025 1:46pm Chronic kidney disease, stage 3b [facility] 2024 11:00am Type 2 diabetes mellitus March 15, 2025 11:00am Ulcer of left foot with fat layer expose d March 15, 2025 11:00am Ulcer of right foot with fat layer expos ed March 15, 2025 11:00am Ulcer of right lower extremity with fat layer exposed March 15, 2025 11:00am PAD (peripheral artery disease) [facility] 2024 11:00am [facility]mal [facility] Chief Complaint Admit Date CHF EXACERBATION January 07, 2025 4:29p m CHF EXACERBATION January 08, 2025 6:49p m CHF EXACERBATION January 09, 2025 2:34p m CHF EXACERBATION January 10, 2025 6:23p m CHF EXACERBATION January 11, 2025 12:3 0pm Stroke [facility] 7/6 ([place]re[place]ski) February 05, 2025 8:53am [...] 29, 2025 11:00am PAD (peripheral artery disease) [facility] 2024 11:00am PAF [facility]oxysmal atrial fibrillation[facility] 11:00am Chief Complaint Admit Date CHF EXACERBATION January 07, 2025 4:29p m CHF EXACERBATION January 08, 2025 6:49p m CHF EXACERBATION January 09, 2025 2:34p m CHF EXACERBATION January 10, 2025 6:23p m CHF EXACERBATION January 11, 2025 12:3 0pm Stroke [facility] 7/6 ([place]re[place]ski) February 05, 2025 8:53am [...] 29, 2025 11:00am PAD (peripheral artery disease) [facility] 2024 11:00am PAF (paroxysmal atrial fibrillation) [facility] 2024 11:00am Chronic kidney disease, stage 3b [...] EXACERBATION January 11, 2025 12:3 0pm Stroke [facility] 7/6 (Tere[place]ski) February 05, 2025 8:53am [...] 29, 2025 11:00am PAD (peripheral artery disease) [facility] 2024 11:00am PAF (paroxysmal atrial [...] May 11:22am Chief Complaint Admit Date Stroke [facility] 7/6 (Tere[place]ski) February 05, 2025 8:53am [...] TOMOGRAPHY THORAX W/O CNTRST Gerard Le PA-C [address] [place] [address] Ct Imaging Referral ID Status Reason Start Date Expiration Date Visits Requested Visits Authorized [id number] Pending Review Auto-Generat ed Referral 07/07/2022 05/06/2023 1 1 Specialty Diagnoses / Procedures Referred By Leilani ng Referred To Contact Hematology Diagnoses Iron deficiency anemia due to chronic blood loss Procedures CONSULT TO HEMATOLOGY OFFICE/OUTPATIENT [facility] 60-74 MINUTES Gerard Le PA-C [address] [place] [address] Referral ID Status Reason Start Date Expiration Date Visits Requested Visits Authorized [id number] Pending Review PCP Requested Referral 04/06/2022 04/06/2023 1 1 Specialty Diagnoses / Procedures Referred By Leilani ng Referred To Contact MR IMAGING Diagnoses 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 Procedures MRA BRAIN WO/W IVCON MRA; HEAD W & WO CONTRAST Gerard Le PA-C [address] [place] [address] Mr Imaging Referral ID Status Reason Start Date Expiration Date Visits Requested Visits Authorized [id number] Pending Review Auto-Generat ed Referral 07/07/2022 08/06/2023 1 1 Specialty Diagnoses / Procedures Referred By Leilani t Referred To Contact Vascular Surgery Diagnoses PVD (peripheral vascular disease) with claudication (HCC) Procedures CONSULT TO VASCULAR SURGERY OFFICE/OUTPATIENT [facility] MDM 60-74 MINUTES Gerard Le PA-C [address] [place] [address] Referral ID Status Reason Start Date Expiration Date Visits Requested Visits Authorized [id number] Pending Review PCP Requested Referral 01/28/2023 01/28/2024 1 1 Specialty Diagnoses / Procedures Referred By Contac t Referred To Contact CT IMAGING Diagnoses Lung nodule, solitary Procedures CT CHEST WO IVCON DIAGNOSTIC COMPUTED TOMOGRAPHY THORAX W/O CNTRST Gerard Le PA-C [address] [place] [address] [place] [address] Referral ID Status Reason Start Date Expiration Date V isits Requested Visits Authorized [id number] Closed Auto-Generate d Referral 07/07/2022 05/06/2023 1 1 Specialty Diagnoses / Procedures Referred By Contac t Referred To Contact Hematology Diagnoses 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 Procedures CONSULT TO HEMATOLOGY OFFICE/OUTPATIENT [facility] 60 MINUTES Gerard Le PA-C [address] [place] [address] Referral ID Status Reason Start Date Expiration Date Visits Requested Visits Authorized [id number] Authorized PCP Requested Referral 11/15/2023 11/14/2024 1 1 Additional Source Comments INFORMATION SOURCE (unrecogn ized section and content) DATE CREATED AUTHOR 12/22/2017 [facility] DATE CREATED AUTHOR AUTHOR'S ORGANIZ ATION 03/09/2019 [facility] DATE CREATED AUTHOR AUTHOR'S ORGANIZ ATION 02/21/2021 [facility] DATE CREATED AUTHOR AUTHOR'S ORGANIZ ATION 11/09/2023 [facility] DATE CREATED AUTHOR AUTHOR'S ORGANIZ ATION 02/09/2024 [facility] DATE CREATED AUTHOR AUTHOR'S ORGANIZ ATION 12/27/2024 [facility] DATE CREATED AUTHOR AUTHOR'S ORGANIZ ATION 01/02/2025 [facility] DATE CREATED AUTHOR AUTHOR'S ORGANIZ ATION 05/16/2025 [facility] Reason for Visit (unrecogniz ed section and content) Reason Comments Non-Chemotherapy Treatment Specialty Diagnoses / Procedures Referred By Contac t Referred To Contact Diagnoses 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 Procedures IRON SUCROSE INJECTION PER 1 MG Ralph Mujica DO [address] [place] [address] [facility] [address] [place] [address] Referral ID Status Reason Start Date Expiration Date V isits Requested Visits Authorized [id number] Authorized 04/07/2022 07/04/2022 99 99 Reason Comments Follow Up Specialty Diagnoses / Procedures Referred By Leilani ng Referred To Contact Cardiology / CARD ADMIN [facility] Diagnoses Follow-up examination 6 month follow up Procedures OFFICE/OUTPATIENT ESTABLISHED MOD MDM 30-39 MIN EST PATIENT Carla Burdick MD [address] [facility] [place] [place] [address] Carla Burdick MD [address] [place] [address] Referral ID Status Reason Start Date Expiration Date Visits Re quested Visits Authorized [id number] Closed 03/30/2022 07/04/2022 1 1 Reason Comments [...] MINUTES NEW DDI PATIENT Gerard Le, BOUBACAR [address] [place] [address] Chai Encinas MD [address] [place] [address] Referral ID Status Reason Start Date Expiration Date V isits Requested Visits Authorized [id number] 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 [...] Procedures 4C EST Self, Gerard Jackson, PACarolineC [address] [place] [address] Referral ID Status Reason Start Date Expiration Date Visits Re quested Visits Authorized [id number] Closed 01/16/2022 07/04/2022 1 1 Reason Onset Date Comments Refill Request 01/19/2022 Reason Comments Patient Question ORDER FOR ABDIEL AND EC G Reason Comments Diarrhea " A few weeks" Specialty Diagnoses / Procedures Referred By Leilani t Referred To Contact Family Practice / FAMILY MEDICINE Diagnoses Chronic diarrhea Procedures MYC OFFICE VISIT Self, Gerard Jackson, PASammy [address] [place] [address] Referral ID Status Reason Start Date Expiration Date Visits Re quested Visits Authorized [id number] Closed 02/20/2022 07/04/2022 1 1 Reason Comments Procedure Follow Up EGD completed on 01/02 Reason Onset Date Comments Transition Of Care 02/25/2022 [facility] Hospital D/C 02/24/2023 Reason Comments Reminder Call Transesophageal Echo 03/03/22 Specialty Diagnoses / Procedures Referred By Contact Referred To Contact Cardiology / CARDIOVASCULAR MEDICINE Diagnoses Paroxysmal atrial fibrillation Presence of Watchman left atrial appendage closure device Per [facility] Procedures REFERRAL TO [facility] FINANCIAL COUNSELOR EST CLINICIAN Chandler Swan MD [address] [place] [address] Radha Torres APRN.CNP [address] [place] [address] Referral ID Status Reason Start Date Expiration Date Visits Requested Visits Authorized [id number] 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 [...] MYC OFFICE VISIT Self Gerard Le PA-C [address] [place] [address] Referral ID Status Reason Start Date Expiration Date Visits Re quested Visits Authorized [id number] Closed 03/03/2022 07/04/2022 1 1 Reason Onset Date Comments Transition Of Care 03/20/2022 Tcm readmissi on Reason Onset Date Comments Appointment 03/21/2022 Reason Comments Service Learning Coordinator - Other CHF Reason Comments Hospital Follow [...] Information Reason Comments Research IRB [id number] [facility]- Reason Onset Date Comments Refill Request 08/30/2022 [...] TOMOGRAPHY THORAX W/O CNTRST Gerard Le PA-C [address] [place] [address] [place] [address] Referral ID Status Reason Start Date Expiration Date V isits Requested Visits Authorized [id number] Closed Auto-Generate d Referral 07/07/2022 05/06/2023 1 1 Reason Comments Radiology US Specialty Diagnoses / Procedures Referred By Montanaac t Referred To Contact US IMAGING Diagnoses Neoplasm of uncertain behavior of right kidney Procedures US KIDNEY/BLADDER US RETROPERITONEAL REAL TIME W/IMAGE COMPLETE Brayan Chicas MD [address] [place] [address] [place] [address] Referral ID Status Reason Start Date Expiration Date V isits Requested Visits Authorized [id number] Closed Auto-Generate d Referral 09/02/2022 05/09/2023 1 1 Reason Comments Cough Chest congestion x l ast night Reason Comments Patient Update Reason Comments Leg Edema Reason Comments Results Orders Reason Comments Follow Up 6 month Reason Comments Established Patient Reason Comments Initial Consult HEART FAILURE [id number] Reason Comments Transition Of Care Reason Onset Date Comments ACM CECY RN 11/16/2023 E.D. Utilizat ion Review per Payer Request. Reason Comments Patient Question Reason Comments Hospital Follow Up [facility] follow up dc'd 11/12/23 dx: CHF [...] Up hospital follow up- CHF in [facility] for 23 days, discharged October 28 Reason [...] or prosecute any alcohol or drug abuse patient.[facility] the event this information is protected by the Federal Confidentiality of Alcohol and Drug Abuse Patient Records regulations: The Federal rules restrict any use of the information to criminally investigate or prosecute any alcohol or drug abuse patient.[facility] the event this information is protected by the Federal Confidentiality of Alcohol and Drug Abuse Patient Records regulations: The Federal rules restrict any use of the information to criminally investigate or prosecute any alcohol or drug abuse patient.[facility] the event this information is protected by the Federal Confidentiality of Alcohol and Drug Abuse Patient Records regulations: The Federal rules restrict any use of the information to criminally investigate or prosecute any alcohol or drug abuse patient.[facility] the event this information is protected by the Federal Confidentiality of Alcohol and Drug Abuse Patient Records regulations: The Federal rules restrict any use of the information to criminally investigate or prosecute any alcohol or drug abuse patient.[facility] the event this information is protected by the Federal Confidentiality of Alcohol and Drug Abuse Patient Records regulations: The Federal rules restrict any use of the information to criminally investigate or prosecute any alcohol or drug abuse patient.[facility] the event this information is protected by the Federal Confidentiality of Alcohol and Drug Abuse Patient Records regulations: The Federal rules restrict any use of the information to criminally investigate or prosecute any alcohol or drug abuse patient.[facility] the event this information is protected by the Federal Confidentiality of Alcohol and Drug Abuse Patient Records regulations: The Federal rules restrict any use of the information to criminally investigate or prosecute any alcohol or drug abuse patient.[facility] the event this information is protected by the Federal Confidentiality of Alcohol and Drug Abuse Patient Records regulations: The Federal rules restrict any use of the information to criminally investigate or prosecute any alcohol or drug abuse patient.[facility] the event this information is protected by the Federal Confidentiality of Alcohol and Drug Abuse Patient Records regulations: The Federal rules restrict any use of the information to criminally investigate or prosecute any alcohol or drug abuse patient.[facility] the event this information is protected by the Federal Confidentiality of Alcohol and Drug Abuse Patient Records regulations: The Federal rules restrict any use of the information to criminally investigate or prosecute any alcohol or drug abuse patient.[facility] the event this information is protected by the Federal Confidentiality of Alcohol and Drug Abuse Patient Records regulations: The Federal rules restrict any use of the information to criminally investigate or prosecute any alcohol or drug abuse patient.[facility] the event this information is protected by the Federal Confidentiality of Alcohol and Drug Abuse Patient Records regulations: The Federal rules restrict any use of the information to criminally investigate or prosecute any alcohol or drug abuse patient.[facility] the event this information is protected by the Federal Confidentiality of Alcohol and Drug Abuse Patient Records regulations: The Federal rules restrict any use of the information to criminally investigate or prosecute any alcohol or drug abuse patient.[facility] HospitalIn the event this information is protected by the Federal Confidentiality of Alcohol and Drug Abuse Patient Records regulations: The Federal rules restrict any use of the information to criminally investigate or prosecute any alcohol or drug abuse patient.[facility] HospitalIn the event this information is protected by the Federal Confidentiality of Alcohol and Drug Abuse Patient Records regulations: The Federal rules restrict any use of the information to criminally investigate or prosecute any alcohol or drug abuse patient.[facility] HospitalIn the event this information is protected by the Federal Confidentiality of Alcohol and Drug Abuse Patient Records regulations: The Federal rules restrict any use of the information to criminally investigate or prosecute any alcohol or drug abuse patient.[facility]In the event this information is protected by the Federal Confidentiality of Alcohol and Drug Abuse Patient Records regulations: The Federal rules restrict any use of the information to criminally investigate or prosecute any alcohol or drug abuse patient.[facility]In the event this information is protected by the Federal Confidentiality of Alcohol and Drug Abuse Patient Records regulations: The Federal rules restrict any use of the information to criminally investigate or prosecute any alcohol or drug abuse patient.[facility]In the event this information is protected by the Federal Confidentiality of Alcohol and Drug Abuse Patient Records regulations: The Federal rules restrict any use of the information to criminally investigate or prosecute any alcohol or drug abuse patient.[facility] HospitalIn the event this information is protected by the Federal Confidentiality of Alcohol and Drug Abuse Patient Records regulations: The Federal rules restrict any use of the information to criminally investigate or prosecute any alcohol or drug abuse patient.[facility] HospitalIn the event this information is protected by the Federal Confidentiality of Alcohol and Drug Abuse Patient Records regulations: The Federal rules restrict any use of the information to criminally investigate or prosecute any alcohol or drug abuse patient.[facility]In the event this information is protected by the Federal Confidentiality of Alcohol and Drug Abuse Patient Records regulations: The Federal rules restrict any use of the information to criminally investigate or prosecute any alcohol or drug abuse patient.[facility] HospitalIn the event this information is protected by the Federal Confidentiality of Alcohol and Drug Abuse Patient Records regulations: The Federal rules restrict any use of the information to criminally investigate or prosecute any alcohol or drug abuse patient.[facility]In the event this information is protected by the Federal Confidentiality of Alcohol and Drug Abuse Patient Records regulations: The Federal rules restrict any use of the information to criminally investigate or prosecute any alcohol or drug abuse patient.[facility] HospitalIn the event this information is protected by the Federal Confidentiality of Alcohol and Drug Abuse Patient Records regulations: The Federal rules restrict any use of the information to criminally investigate or prosecute any alcohol or drug abuse patient.[facility] HospitalIn the event this information is protected by the Federal Confidentiality of Alcohol and Drug Abuse Patient Records regulations: The Federal rules restrict any use of the information to criminally investigate or prosecute any alcohol or drug abuse patient.[facility] HospitalIn the event this information is protected by the Federal Confidentiality of Alcohol and Drug Abuse Patient Records regulations: The Federal rules restrict any use of the information to criminally investigate or prosecute any alcohol or drug abuse patient.[facility] HospitalIn the event this information is protected by the Federal Confidentiality of Alcohol and Drug Abuse Patient Records regulations: The Federal rules restrict any use of the information to criminally investigate or prosecute any alcohol or drug abuse patient.[facility] HospitalIn the event this information is protected by the Federal Confidentiality of Alcohol and Drug Abuse Patient Records regulations: The Federal rules restrict any use of the information to criminally investigate or prosecute any alcohol or drug abuse patient.[facility] HospitalIn the event this information is protected by the Federal Confidentiality of Alcohol and Drug Abuse Patient Records regulations: The Federal rules restrict any use of the information to criminally investigate or prosecute any alcohol or drug abuse patient.[facility] HospitalIn the event this information is protected by the Federal Confidentiality of Alcohol and Drug Abuse Patient Records regulations: The Federal rules restrict any use of the information to criminally investigate or prosecute any alcohol or drug abuse patient.[facility] HospitalIn the event this information is protected by the Federal Confidentiality of Alcohol and Drug Abuse Patient Records regulations: The Federal rules restrict any use of the information to criminally investigate or prosecute any alcohol or drug abuse patient.[facility] the event this information is protected by the Federal Confidentiality of Alcohol and Drug Abuse Patient Records regulations: The Federal rules restrict any use of the information to criminally investigate or prosecute any alcohol or drug abuse patient.[facility] HospitalIn the event this information is protected by the Federal Confidentiality of Alcohol and Drug Abuse Patient Records regulations: The Federal rules restrict any use of the information to criminally investigate or prosecute any alcohol or drug abuse patient.[facility] HospitalIn the event this information is protected [...] or prosecute any alcohol or drug abuse patient.[facility] HospitalIn the event this information is protected by the Federal Confidentiality of Alcohol and Drug Abuse Patient Records regulations: The Federal rules restrict any use of the information to criminally investigate or prosecute any alcohol or drug abuse patient.[facility] HospitalIn the event this information is protected by the Federal Confidentiality of Alcohol and Drug Abuse Patient Records regulations: The Federal rules restrict any use of the information to criminally investigate or prosecute any alcohol or drug abuse patient.[facility] HospitalIn the event this information is protected by the Federal Confidentiality of Alcohol and Drug Abuse Patient Records regulations: The Federal rules restrict any use of the information to criminally investigate or prosecute any alcohol or drug abuse patient.[facility] HospitalIn the event this information is protected by the Federal Confidentiality of Alcohol and Drug Abuse Patient Records regulations: The Federal rules restrict any use of the information to criminally investigate or prosecute any alcohol or drug abuse patient.[facility] HospitalIn the event this information is protected by the Federal Confidentiality of Alcohol and Drug Abuse Patient Records regulations: The Federal rules restrict any use of the information to criminally investigate or prosecute any alcohol or drug abuse patient.[facility] HospitalIn the event this information is protected by the Federal Confidentiality of Alcohol and Drug Abuse Patient Records regulations: The Federal rules restrict any use of the information to criminally investigate or prosecute any alcohol or drug abuse patient.[facility] HospitalIn the event this information is protected by the Federal Confidentiality of Alcohol and Drug Abuse Patient Records regulations: The Federal rules restrict any use of the information to criminally investigate or prosecute any alcohol or drug abuse patient.[facility] HospitalIn the event this information is protected by the Federal Confidentiality of Alcohol and Drug Abuse Patient Records regulations: The Federal rules restrict any use of the information to criminally investigate or prosecute any alcohol or drug abuse patient.[facility] HospitalIn the event this information is protected by the Federal Confidentiality of Alcohol and Drug Abuse Patient Records regulations: The Federal rules restrict any use of the information to criminally investigate or prosecute any alcohol or drug abuse patient.[facility] HospitalIn the event this information is protected by the Federal Confidentiality of Alcohol and Drug Abuse Patient Records regulations: The Federal rules restrict any use of the information to criminally investigate or prosecute any alcohol or drug abuse patient.[facility] HospitalIn the event this information is protected by the Federal Confidentiality of Alcohol and Drug Abuse Patient Records regulations: The Federal rules restrict any use of the information to criminally investigate or prosecute any alcohol or drug abuse patient.[facility] HospitalIn the event this information is protected by the Federal Confidentiality of Alcohol and Drug Abuse Patient Records regulations: The Federal rules restrict any use of the information to criminally investigate or prosecute any alcohol or drug abuse patient.[facility] HospitalIn the event this information is protected by the Federal Confidentiality of Alcohol and Drug Abuse Patient Records regulations: The Federal rules restrict any use of the information to criminally investigate or prosecute any alcohol or drug abuse patient.[facility] HospitalIn the event this information is protected by the Federal Confidentiality of Alcohol and Drug Abuse Patient Records regulations: The Federal rules restrict any use of the information to criminally investigate or prosecute any alcohol or drug abuse patient.[facility] HospitalIn the event this information is protected by the Federal Confidentiality of Alcohol and Drug Abuse Patient Records regulations: The Federal rules restrict any use of the information to criminally investigate or prosecute any alcohol or drug abuse patient.[facility] HospitalIn the event this information is protected by the Federal Confidentiality of Alcohol and Drug Abuse Patient Records regulations: The Federal rules restrict any use of the information to criminally investigate or prosecute any alcohol or drug abuse patient.[facility] HospitalIn the event this information is protected by the Federal Confidentiality of Alcohol and Drug Abuse Patient Records regulations: The Federal rules restrict any use of the information to criminally investigate or prosecute any alcohol or drug abuse patient.[facility] HospitalIn the event this information is protected by the Federal Confidentiality of Alcohol and Drug Abuse Patient Records regulations: The Federal rules restrict any use of the information to criminally investigate or prosecute any alcohol or drug abuse patient.[facility] HospitalIn the event this information is protected by the Federal Confidentiality of Alcohol and Drug Abuse Patient Records regulations: The Federal rules restrict any use of the information to criminally investigate or prosecute any alcohol or drug abuse patient.[facility] HospitalIn the event this information is protected by the Federal Confidentiality of Alcohol and Drug Abuse Patient Records regulations: The Federal rules restrict any use of the information to criminally investigate or prosecute any alcohol or drug abuse patient.[facility] HospitalIn the event this information is protected by the Federal Confidentiality of Alcohol and Drug Abuse Patient Records regulations: The Federal rules restrict any use of the information to criminally investigate or prosecute any alcohol or drug abuse patient.[facility] HospitalIn the event this information is protected by the Federal Confidentiality of Alcohol and Drug Abuse Patient Records regulations: The Federal rules restrict any use of the information to criminally investigate or prosecute any alcohol or drug abuse patient.[facility] HospitalIn the event this information is protected by the Federal Confidentiality of Alcohol and Drug Abuse Patient Records regulations: The Federal rules restrict any use of the information to criminally investigate or prosecute any alcohol or drug abuse patient.[facility] HospitalIn the event this information is protected by the Federal Confidentiality of Alcohol and Drug Abuse Patient Records regulations: The Federal rules restrict any use of the information to criminally investigate or prosecute any alcohol or drug abuse patient.[facility] HospitalIn the event this information is protected by the Federal Confidentiality of Alcohol and Drug Abuse Patient Records regulations: The Federal rules restrict any use of the information to criminally investigate or prosecute any alcohol or drug abuse patient.[facility] HospitalIn the event this information is protected by the Federal Confidentiality of Alcohol and Drug Abuse Patient Records regulations: The Federal rules restrict any use of the information to criminally investigate or prosecute any alcohol or drug abuse patient.[facility] HospitalIn the event this information is protected by the Federal Confidentiality of Alcohol and Drug Abuse Patient Records regulations: The Federal rules restrict any use of the information to criminally investigate or prosecute any alcohol or drug abuse patient.[facility] HospitalIn the event this information is protected by the Federal Confidentiality of Alcohol and Drug Abuse Patient Records regulations: The Federal rules restrict any use of the information to criminally investigate or prosecute any alcohol or drug abuse patient.[facility] HospitalIn the event this information is protected by the Federal Confidentiality of Alcohol and Drug Abuse Patient Records regulations: The Federal rules restrict any use of the information to criminally investigate or prosecute any alcohol or drug abuse patient.[facility] HospitalIn the event this information is protected by the Federal Confidentiality of Alcohol and Drug Abuse Patient Records regulations: The Federal rules restrict any use of the information to criminally investigate or prosecute any alcohol or drug abuse patient.[facility] HospitalIn the event this information is protected by the Federal Confidentiality of Alcohol and Drug Abuse Patient Records regulations: The Federal rules restrict any use of the information to criminally investigate or prosecute any alcohol or drug abuse patient.[facility] HospitalIn the event this information is protected by the Federal Confidentiality of Alcohol and Drug Abuse Patient Records regulations: The Federal rules restrict any use of the information to criminally investigate or prosecute any alcohol or drug abuse patient.[facility] HospitalIn the event this information is protected by the Federal Confidentiality of Alcohol and Drug Abuse Patient Records regulations: The Federal rules restrict any use of the information to criminally investigate or prosecute any alcohol or drug abuse patient.[facility] HospitalIn the event this information is protected by the Federal Confidentiality of Alcohol and Drug Abuse Patient Records regulations: The Federal rules restrict any use of the information to criminally investigate or prosecute any alcohol or drug abuse patient.[facility] HospitalIn the event this information is protected by the Federal Confidentiality of Alcohol and Drug Abuse Patient Records regulations: The Federal rules restrict any use of the information to criminally investigate or prosecute any alcohol or drug abuse patient.[facility] HospitalIn the event this information is protected by the Federal Confidentiality of Alcohol and Drug Abuse Patient Records regulations: The Federal rules restrict any use of the information to criminally investigate or prosecute any alcohol or drug abuse patient.[facility] HospitalIn the event this information is protected by the Federal Confidentiality of Alcohol and Drug Abuse Patient Records regulations: The Federal rules restrict any use of the information to criminally investigate or prosecute any alcohol or drug abuse patient.[facility] HospitalIn the event this information is protected by the Federal Confidentiality of Alcohol and Drug Abuse Patient Records regulations: The Federal rules restrict any use of the information to criminally investigate or prosecute any alcohol or drug abuse patient.[facility] HospitalIn the event this information is protected by the Federal Confidentiality of Alcohol and Drug Abuse Patient Records regulations: The Federal rules restrict any use of the information to criminally investigate or prosecute any alcohol or drug abuse patient.[facility] HospitalIn the event this information is protected by the Federal Confidentiality of Alcohol and Drug Abuse Patient Records regulations: The Federal rules restrict any use of the information to criminally investigate or prosecute any alcohol or drug abuse patient.[facility] HospitalIn the event this information is protected by the Federal Confidentiality of Alcohol and Drug Abuse Patient Records regulations: The Federal rules restrict any use of the information to criminally investigate or prosecute any alcohol or drug abuse patient.[facility] HospitalIn the event this information is protected by the Federal Confidentiality of Alcohol and Drug Abuse Patient Records regulations: The Federal rules restrict any use of the information to criminally investigate or prosecute any alcohol or drug abuse patient.[facility] HospitalIn the event this information is protected by the Federal Confidentiality of Alcohol and Drug Abuse Patient Records regulations: The Federal rules restrict any use of the information to criminally investigate or prosecute any alcohol or drug abuse patient.[facility] HospitalIn the event this information is protected by the Federal Confidentiality of Alcohol and Drug Abuse Patient Records regulations: The Federal rules restrict any use of the information to criminally investigate or prosecute any alcohol or drug abuse patient.[facility] HospitalIn the event this information is protected by the Federal Confidentiality of Alcohol and Drug Abuse Patient Records regulations: The Federal rules restrict any use of the information to criminally investigate or prosecute any alcohol or drug abuse patient.[facility] HospitalIn the event this information is protected by the Federal Confidentiality of Alcohol and Drug Abuse Patient Records regulations: The Federal rules restrict any use of the information to criminally investigate or prosecute any alcohol or drug abuse patient.[facility] the event this information is protected by the Federal Confidentiality of Alcohol and Drug Abuse Patient Records regulations: The Federal rules restrict any use of the information to criminally investigate or prosecute any alcohol or drug abuse patient.[facility] HospitalIn the event this information is protected by the Federal Confidentiality of Alcohol and Drug Abuse Patient Records regulations: The Federal rules restrict any use of the information to criminally investigate or prosecute any alcohol or drug abuse patient.[facility] HospitalIn the event this information is protected [...] or prosecute any alcohol or drug abuse patient.[facility] HospitalIn the event this information is protected by the Federal Confidentiality of Alcohol and Drug Abuse Patient Records regulations: The Federal rules restrict any use of the information to criminally investigate or prosecute any alcohol or drug abuse patient.[facility] HospitalIn the event this information is protected by the Federal Confidentiality of Alcohol and Drug Abuse Patient Records regulations: The Federal rules restrict any use of the information to criminally investigate or prosecute any alcohol or drug abuse patient.[facility] HospitalIn the event this information is protected by the Federal Confidentiality of Alcohol and Drug Abuse Patient Records regulations: The Federal rules restrict any use of the information to criminally investigate or prosecute any alcohol or drug abuse patient.[facility] HospitalIn the event this information is protected by the Federal Confidentiality of Alcohol and Drug Abuse Patient Records regulations: The Federal rules restrict any use of the information to criminally investigate or prosecute any alcohol or drug abuse patient.[facility] HospitalIn the event this information is protected by the Federal Confidentiality of Alcohol and Drug Abuse Patient Records regulations: The Federal rules restrict any use of the information to criminally investigate or prosecute any alcohol or drug abuse patient.[facility] HospitalIn the event this information is protected by the Federal Confidentiality of Alcohol and Drug Abuse Patient Records regulations: The Federal rules restrict any use of the information to criminally investigate or prosecute any alcohol or drug abuse patient.[facility] HospitalIn the event this information is protected by the Federal Confidentiality of Alcohol and Drug Abuse Patient Records regulations: The Federal rules restrict any use of the information to criminally investigate or prosecute any alcohol or drug abuse patient.[facility] HospitalIn the event this information is protected by the Federal Confidentiality of Alcohol and Drug Abuse Patient Records regulations: The Federal rules restrict any use of the information to criminally investigate or prosecute any alcohol or drug abuse patient.[facility] HospitalIn the event this information is protected by the Federal Confidentiality of Alcohol and Drug Abuse Patient Records regulations: The Federal rules restrict any use of the information to criminally investigate or prosecute any alcohol or drug abuse patient.[facility] HospitalIn the event this information is protected by the Federal Confidentiality of Alcohol and Drug Abuse Patient Records regulations: The Federal rules restrict any use of the information to criminally investigate or prosecute any alcohol or drug abuse patient.[facility] HospitalIn the event this information is protected by the Federal Confidentiality of Alcohol and Drug Abuse Patient Records regulations: The Federal rules restrict any use of the information to criminally investigate or prosecute any alcohol or drug abuse patient.[facility] HospitalIn the event this information is protected by the Federal Confidentiality of Alcohol and Drug Abuse Patient Records regulations: The Federal rules restrict any use of the information to criminally investigate or prosecute any alcohol or drug abuse patient.[facility] HospitalIn the event this information is protected by the Federal Confidentiality of Alcohol and Drug Abuse Patient Records regulations: The Federal rules restrict any use of the information to criminally investigate or prosecute any alcohol or drug abuse patient.[facility] HospitalIn the event this information is protected by the Federal Confidentiality of Alcohol and Drug Abuse Patient Records regulations: The Federal rules restrict any use of the information to criminally investigate or prosecute any alcohol or drug abuse patient.[facility] the event this information is protected by the Federal Confidentiality of Alcohol and Drug Abuse Patient Records regulations: The Federal rules restrict any use of the information to criminally investigate or prosecute any alcohol or drug abuse patient.[facility] HospitalIn the event this information is protected by the Federal Confidentiality of Alcohol and Drug Abuse Patient Records regulations: The Federal rules restrict any use of the information to criminally investigate or prosecute any alcohol or drug abuse patient.[facility] HospitalIn the event this information is protected by the Federal Confidentiality of Alcohol and Drug Abuse Patient Records regulations: The Federal rules restrict any use of the information to criminally investigate or prosecute any alcohol or drug abuse patient.[facility] HospitalIn the event this information is protected by the Federal Confidentiality of Alcohol and Drug Abuse Patient Records regulations: The Federal rules restrict any use of the information to criminally investigate or prosecute any alcohol or drug abuse patient.[facility] HospitalIn the event this information is protected by the Federal Confidentiality of Alcohol and Drug Abuse Patient Records regulations: The Federal rules restrict any use of the information to criminally investigate or prosecute any alcohol or drug abuse patient.[facility] HospitalIn the event this information is protected by the Federal Confidentiality of Alcohol and Drug Abuse Patient Records regulations: The Federal rules restrict any use of the information to criminally investigate or prosecute any alcohol or drug abuse patient.[facility] HospitalIn the event this information is protected by the Federal Confidentiality of Alcohol and Drug Abuse Patient Records regulations: The Federal rules restrict any use of the information to criminally investigate or prosecute any alcohol or drug abuse patient.[facility] HospitalIn the event this information is protected by the Federal Confidentiality of Alcohol and Drug Abuse Patient Records regulations: The Federal rules restrict any use of the information to criminally investigate or prosecute any alcohol or drug abuse patient.[facility] HospitalIn the event this information is protected by the Federal Confidentiality of Alcohol and Drug Abuse Patient Records regulations: The Federal rules restrict any use of the information to criminally investigate or prosecute any alcohol or drug abuse patient.[facility] HospitalIn the event this information is protected by the Federal Confidentiality of Alcohol and Drug Abuse Patient Records regulations: The Federal rules restrict any use of the information to criminally investigate or prosecute any alcohol or drug abuse patient.[facility] HospitalIn the event this information is protected by the Federal Confidentiality of Alcohol and Drug Abuse Patient Records regulations: The Federal rules restrict any use of the information to criminally investigate or prosecute any alcohol or drug abuse patient.[facility] HospitalIn the event this information is protected by the Federal Confidentiality of Alcohol and Drug Abuse Patient Records regulations: The Federal rules restrict any use of the information to criminally investigate or prosecute any alcohol or drug abuse patient.[facility] HospitalIn the event this information is protected by the Federal Confidentiality of Alcohol and Drug Abuse Patient Records regulations: The Federal rules restrict any use of the information to criminally investigate or prosecute any alcohol or drug abuse patient.[facility] HospitalIn the event this information is protected by the Federal Confidentiality of Alcohol and Drug Abuse Patient Records regulations: The Federal rules restrict any use of the information to criminally investigate or prosecute any alcohol or drug abuse patient.[facility] HospitalIn the event this information is protected by the Federal Confidentiality of Alcohol and Drug Abuse Patient Records regulations: The Federal rules restrict any use of the information to criminally investigate or prosecute any alcohol or drug abuse patient.[facility] HospitalIn the event this information is protected by the Federal Confidentiality of Alcohol and Drug Abuse Patient Records regulations: The Federal rules restrict any use of the information to criminally investigate or prosecute any alcohol or drug abuse patient.[facility] HospitalIn the event this information is protected by the Federal Confidentiality of Alcohol and Drug Abuse Patient Records regulations: The Federal rules restrict any use of the information to criminally investigate or prosecute any alcohol or drug abuse patient.[facility] HospitalIn the event this information is protected by the Federal Confidentiality of Alcohol and Drug Abuse Patient Records regulations: The Federal rules restrict any use of the information to criminally investigate or prosecute any alcohol or drug abuse patient.[facility] HospitalIn the event this information is protected by the Federal Confidentiality of Alcohol and Drug Abuse Patient Records regulations: The Federal rules restrict any use of the information to criminally investigate or prosecute any alcohol or drug abuse patient.[facility] HospitalIn the event this information is protected by the Federal Confidentiality of Alcohol and Drug Abuse Patient Records regulations: The Federal rules restrict any use of the information to criminally investigate or prosecute any alcohol or drug abuse patient.[facility] HospitalIn the event this information is protected by the Federal Confidentiality of Alcohol and Drug Abuse Patient Records regulations: The Federal rules restrict any use of the information to criminally investigate or prosecute any alcohol or drug abuse patient.[facility] HospitalIn the event this information is protected by the Federal Confidentiality of Alcohol and Drug Abuse Patient Records regulations: The Federal rules restrict any use of the information to criminally investigate or prosecute any alcohol or drug abuse patient.[facility] HospitalIn the event this information is protected by the Federal Confidentiality of Alcohol and Drug Abuse Patient Records regulations: The Federal rules restrict any use of the information to criminally investigate or prosecute any alcohol or drug abuse patient.[facility] HospitalIn the event this information is protected by the Federal Confidentiality of Alcohol and Drug Abuse Patient Records regulations: The Federal rules restrict any use of the information to criminally investigate or prosecute any alcohol or drug abuse patient.[facility] Care Teams (unrecognized sec tion and content) Wheel Assembler Relationship Specialty Start Date End Date Gerard Le PA-C [address] [place], [place] [id number] PCP - General Family Practice 11/26/16 No, Referral Referring 01/31/19 [place] [address] [address] [place], [place] [id number] Primary Staff Physician Cardiology 07/15/21 Wheel Assembler Relationship Specialty Start Date End Date Gerard Le PA-C [address] [place], [place] 9[address]31 PCP - General Family Practice 11/26/16 No, Referral Referring 01/31/19 [place] [address] [address] [place], [place] [id number] Primary Staff Physician Cardiology 07/15/21 Wheel Assembler Relationship Specialty Start Date End Date Gerard Le PA-C [address] [place], [place] [id number] PCP - General Family Practice 11/26/16 No, Referral Referring 01/31/19 [place] [address] [place] [address] Primary Staff Physician Cardiology 07/15/21 Wheel Assembler Relationship Specialty Start Date End Date Gerard Le PA-C [address] [place], [place] [id number] PCP - General Family Practice 11/26/16 No, Referral Referring 01/31/19 [place] [address] [place], [place] 3770878 [phone] Primary Staff Physician Cardiology 07/15/21 Wheel Assembler Relationship Specialty Start Date End Date Gerard Le PA-C [address] [place] [address] PCP - General Family Practice 11/26/16 No, Referral Referring 01/31/19 [place] [address] [facility] [place] [address] Primary Staff Physician Cardiology 07/15/21 Wheel Assembler Relationship Specialty Start Date End Date Gerard Le PA-C [address] [place] [address] PCP - General Family Practice 11/26/16 No, Referral Referring 01/31/19 [place] [address] [place] [address] Primary Staff Physician Cardiology 07/15/21 Wheel Assembler Relationship Specialty Start Date End Date Gerard Le PA-C [address] [place] [address] PCP - General Family Practice 11/26/16 No, Referral Referring 01/31/19 [place] [address] [facility] [place] [place] [address] Primary Staff Physician Cardiology 07/15/21 Wheel Assembler Relationship Specialty Start Date End Date Gerard Le PA-C [address] [place] [address] PCP - General Family Practice 11/26/16 No, Referral Referring 01/31/19 [place] [address] [facility] [place] [place] [address] Primary Staff Physician Cardiology 07/15/21 Wheel Assembler Relationship Specialty Start Date End Date Gerard Le PA-C [address] [place] [address] PCP - General Family Practice 11/26/16 No, Referral Referring 01/31/19 [place] [address] [place] [address] Primary Staff Physician Cardiology 07/15/21 Wheel Assembler Relationship Specialty Start Date End Date Gerard Le PA-C [address] [place] [address] PCP - General Family Practice 11/26/16 No, Referral Referring 01/31/19 [place] [address] [place] [address] Primary Staff Physician Cardiology 07/15/21 Wheel Assembler Relationship Specialty Start Date End Date Gerard Le PA-C [address] [place] [address] PCP - General Family Practice 11/26/16 No, Referral Referring 01/31/19 [place] [address] [facility] [place] [place] [address] Primary Staff Physician Cardiology 07/15/21 Wheel Assembler Relationship Specialty Start Date End Date Gerard Le PA-C [address] [place] [address] PCP - General Family Practice 11/26/16 No, Referral Referring 01/31/19 [place] [address] [facility] [place] [place] [address] Primary Staff Physician Cardiology 07/15/21 Wheel Assembler Relationship Specialty Start Date End Date Gerard Le PA-C [address] [place], [place] 329521 PCP - General Family Practice 11/26/16 No, Referral Referring 01/31/19 [place] [address] [place], [place] [id number] Primary Staff Physician Cardiology 07/15/21 Wheel Assembler Relationship Specialty Start Date End Date Gerard Le PA-C [address] [place] [address] PCP - General Family Practice 11/26/16 No, Referral Referring 01/31/19 [place] [address] [place], [place] [id number] [phone] Primary Staff Physician Cardiology 07/15/21 Wheel Assembler Relationship Specialty Start Date End Date Gerard Le PA-C [address] [place] [address] PCP - General Family Practice 11/26/16 No, Referral Referring 01/31/19 [place] [address] [place] [address] Primary Staff Physician Cardiology 07/15/21 Wheel Assembler Relationship Specialty Start Date End Date Gerard Le PA-C [address] [place] [address] PCP - General Family Practice 11/26/16 No, Referral Referring 01/31/19 [place] [address] [facility] [place] [place] [address] Primary Staff Physician Cardiology 07/15/21 Wheel Assembler Relationship Specialty Start Date End Date Gerard Le PA-C [address] [place] [address] PCP - General Family Practice 11/26/16 No, Referral Referring 01/31/19 [place] [address] [place], [place] [id number] Primary Staff Physician Cardiology 07/15/21 Wheel Assembler Relationship Specialty Start Date End Date Gerard Le PA-C [address] [place] [address] PCP - General Family Practice 11/26/16 No, Referral Referring 01/31/19 [place] [address] [place], [place] [id number] Primary Staff Physician Cardiology 07/15/21 Sheridan Cervantes RN Primary Care [employer] Flake Miller 02/25/22 03/27/22 Wheel Assembler Relationship Specialty Start Date End Date Gerard Le PA-C [address] [place] [address] PCP - General Family Practice 11/26/16 No, Referral Referring 01/31/19 [place] [address] [place], [place] [phone] Primary Staff Physician Cardiology 07/15/21 Sheridan Cervantes RN Primary Care [employer]ake [employer] 02/25/22 03/27/22 Carla Burdick MD [address] [facility] [place] [address] Cardiology 03/03/22 03/03/22 Carla Burdick MD [address] [facility] [place] [address] Primary Staff Physician Cardiology 03/03/22 Wheel Assembler Relationship Specialty Start Date End Date Gerard Le PA-C [address] [place] [address] PCP - General Family Practice 11/26/16 No, Referral Referring 01/31/19 [place] [address] [facility] [place], [place] [phone] Primary Staff Physician Cardiology 07/15/21 Sheridan Cervantes RN Primary Care [employer] Flake Miller 02/25/22 03/27/22 Carla Burdick MD [address] [place], [place] [address]80 [phone] Cardiology 03/03/22 03/03/22 Carla Burdick MD [address] [place], [place] 8[address]41 Primary Staff Physician Cardiology 03/03/22 Wheel Assembler Relationship Specialty Start Date End Date Gerard Le PA-C [address] [place] [address] PCP - General Family Practice 11/26/16 No, Referral Referring 01/31/19 [place] [address] [address] [place], [place] [id number] Primary Staff Physician Cardiology 07/15/21 Sheridan Cervantes RN Primary Care [employer]ake [employer] 02/25/22 03/27/22 Carla Burdick MD [address] [place], [place] [address] Primary Staff Physician Cardiology 03/03/22 Wheel Assembler Relationship Specialty Start Date End Date Gerard Le PA-C [address] [place] [address] PCP - General Family Practice 11/26/16 No, Referral Referring 01/31/19 [place] [address] [address] [place], [place] 5812740 [phone] Primary Staff Physician Cardiology 07/15/21 Sheridan Cervantes, airborne operations superintendent [employer] 02/25/22 03/27/22 Carla Burdick MD [address] [place] [address] Primary Staff Physician Cardiology 03/03/22 Wheel Assembler Relationship Specialty Start Date End Date Gerard Le PA-C [address] [place] [address] PCP - General Family Practice 11/26/16 No, Referral Referring 01/31/19 [place] [address] [place] [address] Primary Staff Physician Cardiology 07/15/21 Sheridan Cervantes RN Primary Care [employer] 02/25/22 03/27/22 Carla Burdick MD [address] [place] [address] Primary Staff Physician Cardiology 03/03/22 Wheel Assembler Relationship Specialty Start Date End Date Gerard Le PA-C [address] [place] [address] PCP - General Family Practice 11/26/16 No, Referral Referring 01/31/19 [place] [address] [place] [address] Primary Staff Physician Cardiology 07/15/21 Carla Burdick MD [address] [place] [address] Primary Staff Physician Cardiology 03/03/22 Wheel Assembler Relationship Specialty Start Date End Date Gerard Le PA-C [address] [place] [address] PCP - General Family Practice 11/26/16 No, Referral Referring 01/31/19 [place] [address] [facility] [place] [address] Primary Staff Physician Cardiology 07/15/21 Carla Burdick MD [address] [facility] [place] [address] Primary Staff Physician Cardiology 03/03/22 Wheel Assembler Relationship Specialty Start Date End Date Gerard Le PA-C [address] [place] [address] PCP - General Family Medicine 11/26/16 No, Referral Referring 01/31/19 [place] [address] [place] [address] Primary Staff Physician Cardiology 07/15/21 Carla Burdick MD [address] [facility] [place] [address] Primary Staff Physician Cardiology 03/03/22 Wheel Assembler Relationship Specialty Start Date End Date Gerard Le PA-C [address] [place] [address] PCP - General Family Medicine 11/26/16 No, Referral Referring 01/31/19 [place] [address] [facility] [place] [address] Primary Staff Physician Cardiology 07/15/21 Carla Burdick MD [address] [facility] [place] [address] Primary Staff Physician Cardiology 03/03/22 Wheel Assembler Relationship Specialty Start Date End Date Gerard Le PA-C [address] [place] [address] PCP - General Family Medicine 11/26/16 No, Referral Referring 01/31/19 [place] [address] [facility] [place] [address] Primary Staff Physician Cardiology 07/15/21 Carla Burdick MD [address] [facility] [place] [address] Primary Staff Physician Cardiology 03/03/22 Wheel Assembler Relationship Specialty Start Date End Date Gerard Le, PACarolineC [address] [place] [address] PCP - General Family Medicine 11/26/16 No, Referral Referring 01/31/19 [place] [address] [facility] [place] [address] Primary Staff Physician Cardiology 07/15/21 Carla Burdick MD [address] [facility] [place] [address] Cardiology 03/03/22 03/03/22 Carla Burdick MD [address] [facility] [place] [address] Primary Staff Physician Cardiology 03/03/22 Wheel Assembler Relationship Specialty Start Date End Date Gerard Le PA-C [address] [place] [address] PCP - General Family Medicine 11/26/16 No, Referral Referring 01/31/19 [place] [address] [facility] [place] [address] Primary Staff Physician Cardiology 07/15/21 Carla Burdick MD [address] [facility] [place] [address] Primary Staff Physician Cardiology 03/03/22 Wheel Assembler Relationship Specialty Start Date End Date Gerard Le PA-C [address] [place] [address] PCP - General Family Medicine 11/26/16 No, Referral Referring 01/31/19 [place] [address] [facility] [place] [address] Primary Staff Physician Cardiology 07/15/21 Carla Burdick MD [address] [place] [address] Primary Staff Physician Cardiology 03/03/22 Wheel Assembler Relationship Specialty Start Date End Date Gerard Le PA-C [address] [place] [address] PCP - General Family Medicine 11/26/16 No, Referral Referring 01/31/19 [place] [address] [facility] [place] [address] Primary Staff Physician Cardiology 07/15/21 Carla Burdick MD [address] [place] [address] Primary Staff Physician Cardiology 03/03/22 Wheel Assembler Relationship Specialty Start Date End Date Gerard Le PA-C [address] [place] [address] PCP - General Family Medicine 11/26/16 No, Referral Referring 01/31/19 [place] [address] [facility] [place] [address] Primary Staff Physician Cardiology 07/15/21 Carla Burdick MD [address] [place] [address] Primary Staff Physician Cardiology 03/03/22 Wheel Assembler Relationship Specialty Start Date End Date Gerard Le PA-C [address] [place] [address] PCP - General Family Medicine 11/26/16 No, Referral Referring 01/31/19 [place] [address] [address] [place], [place] [phone] Primary Staff Physician Cardiology 07/15/21 Carla Burdick MD [address] [place] [address] Primary Staff Physician Cardiology 03/03/22 Wheel Assembler Relationship Specialty Start Date End Date Gerard Le PA-C [address] [place] [address] PCP - General Family Medicine 11/26/16 No, Referral Referring 01/31/19 [place] [address] [address] [place], [place] 8013926 Primary Staff Physician Cardiology 07/15/21 Carla Burdick MD [address] [place] [address] Primary Staff Physician Cardiology 03/03/22 Sonny Lund MD [address] [place] [address] Hematology/Oncology 04/22/22 Wheel Assembler Relationship Specialty Start Date End Date Gerard Le PA-C [address] [place] [address] PCP - General Family Medicine 11/26/16 No, Referral Referring 01/31/19 [place] [address] [address] [place], [place] 3020621 [phone] Primary Staff Physician Cardiology 07/15/21 Carla Burdick MD [address] [facility] [place] [address] Primary Staff Physician Cardiology 03/03/22 Sonny Lund MD [address] [facility] [place] [address] Hematology/Oncology 04/22/22 Wheel Assembler Relationship Specialty Start Date End Date Gerard Le PA-C [address] [place] [address] PCP - General Family Medicine 11/26/16 No, Referral Referring 01/31/19 [place] [address] [place] [address] Primary Staff Physician Cardiology 07/15/21 Carla Burdick MD [address] [facility] [place] [address] Primary Staff Physician Cardiology 03/03/22 Sonny Lund MD [address] [facility] [place] [address] Hematology/Oncology 04/22/22 Wheel Assembler Relationship Specialty Start Date End Date Gerard Le PA-C [address] [place] [address] PCP - General Family Medicine 11/26/16 No, Referral Referring 01/31/19 [place] [address] [place] [address] Primary Staff Physician Cardiology 07/15/21 Carla Burdick MD [address] [facility] [place] [address] Primary Staff Physician Cardiology 03/03/22 Sonny Lund MD [address] [place] [address] Hematology/Oncology 04/22/22 Wheel Assembler Relationship Specialty Start Date End Date Gerard Le PA-C [address] [place] [address] PCP - General Family Medicine 11/26/16 No, Referral Referring 01/31/19 [place] [address] [facility] [place] 835[address] [phone] Primary Staff Physician Cardiology 07/15/21 Carla Burdick MD [address] [facility] [place] [address] Primary Staff Physician Cardiology 03/03/22 Sonny Lund MD [address] [facility] [place] [address] Hematology/Oncology 04/22/22 Wheel Assembler Relationship Specialty Start Date End Date Gerard Le PA-C [address] [place] [address] PCP - General Family Medicine 11/26/16 No, Referral Referring 01/31/19 [place] [address] [place] [address] Primary Staff Physician Cardiology 07/15/21 Carla Burdick MD [address] [facility] [place] [address] Primary Staff Physician Cardiology 03/03/22 Sonny Lund MD [address] [place] [address] Hematology/Oncology 04/22/22 Wheel Assembler Relationship Specialty Start Date End Date Gerard Le PA-C [address] [place] [address] PCP - General Family Medicine 11/26/16 No, Referral Referring 01/31/19 [place] [address] [place] [address] Primary Staff Physician Cardiology 07/15/21 Carla Burdick MD [address] [facility] [place] [address] Primary Staff Physician Cardiology 03/03/22 Sonny Lund MD [address] [facility] [place] [address] Hematology/Oncology 04/22/22 Wheel Assembler Relationship Specialty Start Date End Date Gerard Le PA-C [address] [place] [address] PCP - General Family Medicine 11/26/16 No, Referral Referring 01/31/19 [place] [address] [place] [address] Primary Staff Physician Cardiology 07/15/21 Carla Burdick MD [address] [facility] [place] [address] Primary Staff Physician Cardiology 03/03/22 Sonny Lund MD [address] [facility] [place] [address] Hematology/Oncology 04/22/22 Wheel Assembler Relationship Specialty Start Date End Date Gerard Le PA-C [address] [place] [address] PCP - General Family Medicine 11/26/16 No, Referral Referring 01/31/19 [place] [address] [place], [place] 5220443 [phone] Primary Staff Physician Cardiology 07/15/21 Carla Burdick MD [address] [facility] [place] [address] Primary Staff Physician Cardiology 03/03/22 Sonny Lund MD [address] [facility] [place] [address] Hematology/Oncology 04/22/22 Wheel Assembler Relationship Specialty Start Date End Date Geradr Le PA-C [address] [place] [address] PCP - General Family Medicine 11/26/16 No, Referral Referring 01/31/19 [place] [address] [place] [address] Primary Staff Physician Cardiology 07/15/21 Carla Burdick MD [address] [facility] [place] [address] Primary Staff Physician Cardiology 03/03/22 Sonny Lund MD [address] [facility] [place] [address] Hematology/Oncology 04/22/22 Wheel Assembler Relationship Specialty Start Date End Date Gerard Le PA-C [address] [place] [address] PCP - General Family Medicine 11/26/16 No, Referral Referring 01/31/19 [place] [address] [facility] [place] [address] Primary Staff Physician Cardiology 07/15/21 Carla Burdick MD [address] [facility] [place] [address] Primary Staff Physician Cardiology 03/03/22 Sonny Lund MD [address] [facility] [place] [address] Hematology/Oncology 04/22/22 Wheel Assembler Relationship Specialty Start Date End Date Gerard Le PA-C [address] [place] [address] PCP - General Family Medicine 11/26/16 No, Referral Referring 01/31/19 [place] [address] [place] [address] Primary Staff Physician Cardiology 07/15/21 Carla Burdick MD [address] [facility] [place] [address] Primary Staff Physician Cardiology 03/03/22 Sonny Lund MD [address] [facility] [place] [address] Hematology/Oncology 04/22/22 Wheel Assembler Relationship Specialty Start Date End Date Gerard Le PA-C [address] [place] [address] PCP - General Family Medicine 11/26/16 No, Referral Referring 01/31/19 [place] [address] [place] [address] Primary Staff Physician Cardiology 07/15/21 Carla Burdick MD [address] [facility] [place] [address] Primary Staff Physician Cardiology 03/03/22 Sonny Lund MD [address] [facility] [place] [address] Hematology/Oncology 04/22/22 Wheel Assembler Relationship Specialty Start Date End Date Gerard Le PA-C [address] [place] [address] PCP - General Family Medicine 11/26/16 No, Referral Referring 01/31/19 [place] [address] [address] [place], [place] 7729826 Primary Staff Physician Cardiology 07/15/21 Carla Burdick MD [address] [facility] [place] [address] Primary Staff Physician Cardiology 03/03/22 Sonny Lund MD [address] [place] [address] Hematology/Oncology 04/22/22 Wheel Assembler Relationship Specialty Start Date End Date Gerard Le PA-C [address] [place] [address] PCP - General Family Medicine 11/26/16 No, Referral Referring 01/31/19 [place] [address] [address] [place], [place] 5662126 Primary Staff Physician Cardiology 07/15/21 Carla Burdick MD [address] [place] [address] Primary Staff Physician Cardiology 03/03/22 Sonny Lund MD [address] [place] [address] Hematology/Oncology 04/22/22 Wheel Assembler Relationship Specialty Start Date End Date Gerard Le PA-C [address] [place] [address] PCP - General Family Medicine 11/26/16 No, Referral Referring 01/31/19 [place] [address] [address] [place], [place] 8637226 Primary Staff Physician Cardiology 07/15/21 Carla Burdick MD [address] [facility] [place] [address] Primary Staff Physician Cardiology 03/03/22 Sonny Lund MD [address] [facility] [place] [address] Hematology/Oncology 04/22/22 Wheel Assembler Relationship Specialty Start Date End Date Gerard Le PA-C [address] [place] [address] PCP - General Family Medicine 11/26/16 No, Referral Referring 01/31/19 [place] [address] [address] [place], [place] 0305326 Primary Staff Physician Cardiology 07/15/21 Carla Burdick MD [address] [facility] [place] [address] Primary Staff Physician Cardiology 03/03/22 Sonny Lund MD [address] [place] [address] Hematology/Oncology 04/22/22 Wheel Assembler Relationship Specialty Start Date End Date Gerard Le PA-C [address] [place] [address] PCP - General Family Medicine 11/26/16 No, Referral Referring 01/31/19 [place] [address] [address] [place], [place] 0619526 Primary Staff Physician Cardiology 07/15/21 Carla Burdick MD [address] [facility] [place] [address] Primary Staff Physician Cardiology 03/03/22 Sonny Lund MD [address] [facility] [place] [address] Hematology/Oncology 04/22/22 Wheel Assembler Relationship Specialty Start Date End Date Gerard Le PA-C [address] [place] [address] PCP - General Family Medicine 11/26/16 No, Referral Referring 01/31/19 [place] [address] [address] [place], [place] 4213426 Primary Staff Physician Cardiology 07/15/21 Carla Burdick MD [address] [place] [address] Primary Staff Physician Cardiology 03/03/22 Sonny Lund MD [address] [place] [address] Hematology/Oncology 04/22/22 Wheel Assembler Relationship Specialty Start Date End Date Gerard Le PA-C [address] [place] [address] PCP - General Family Medicine 11/26/16 No, Referral Referring 01/31/19 [place] [address] [address] [place], [place] 7714326 Primary Staff Physician Cardiology 07/15/21 Carla Burdick MD [address] [address] Primary Staff Physician Cardiology 03/03/22 Sonny Lund MD [address] [place] [address] Hematology/Oncology 04/22/22 Wheel Assembler Relationship Specialty Start Date End Date Gerard Le PA-C [address] [place] [address] PCP - General Family Medicine 11/26/16 No, Referral Referring 01/31/19 [place] [address] [address] [place], [place] 2984726 Primary Staff Physician Cardiology 07/15/21 Carla Burdick MD [address] [place] [address] Primary Staff Physician Cardiology 03/03/22 Sonny Lund MD [address] [place] [address] Hematology/Oncology 04/22/22 Wheel Assembler Relationship Specialty Start Date End Date Gerard Le PA-C [address] [place] [address] PCP - General Family Medicine 11/26/16 No, Referral Referring 01/31/19 [place] [address] [address] [place], [place] 9701726 Primary Staff Physician Cardiology 07/15/21 Carla Burdick MD [address] [place] [address] Primary Staff Physician Cardiology 03/03/22 Sonny Lund MD [address] [place] [address] Hematology/Oncology 04/22/22 Wheel Assembler Relationship Specialty Start Date End Date Gerard Le PA-C [address] [place] [address] PCP - General Family Medicine 11/26/16 No, Referral Referring 01/31/19 [place] [address] [address] [place], [place] 0280826 Primary Staff Physician Cardiology 07/15/21 Carla Burdick MD [address] [address] Primary Staff Physician Cardiology 03/03/22 Sonny Lund MD [address] [place] [address] Hematology/Oncology 04/22/22 Wheel Assembler Relationship Specialty Start Date End Date Gerard Le PA-C [address] [place], [place] 482441 PCP - General Family Medicine 11/26/16 No, Referral Referring 01/31/19 [place] [address] [place] [place], [place] 7344726 Primary Staff Physician Cardiology 07/15/21 Carla Burdick MD [address] [place] [address] Primary Staff Physician Cardiology 03/03/22 Sonny Lund MD [address] [place] [address] Hematology/Oncology 04/22/22 Wheel Assembler Relationship Specialty Start Date End Date Gerard Le PA-C [address] [place] [address] PCP - General Family Medicine 11/26/16 No, Referral Referring 01/31/19 [place] [address] [address] [place], [place] 2264326 Primary Staff Physician Cardiology 07/15/21 Carla Burdick MD [address] [place] [address] Primary Staff Physician Cardiology 03/03/22 Sonny Lund MD [address] [place] [address] Hematology/Oncology 04/22/22 Wheel Assembler Relationship Specialty Start Date End Date Gerard Le PA-C [address] [place], [place] 402821 PCP - General Family Medicine 11/26/16 No, Referral Referring 01/31/19 [place] [address] [address] [place], [place] 1315126 Primary Staff Physician Cardiology 07/15/21 Carla Burdick MD [address] [place], [place] 24[address]51 Primary Staff Physician Cardiology 03/03/22 Sonny uLnd MD [address] [place], [place] 452051 Hematology/Oncology 04/22/22 Wheel Assembler Relationship Specialty Start Date End Date Gerard Le PA-C [address] [place] [address] PCP - General Family Medicine 11/26/16 No, Referral Referring 01/31/19 [place] [address] [address] [place], [place] 8528126 Primary Staff Physician Cardiology 07/15/21 Carla Burdick MD [address] [place] [address] Primary Staff Physician Cardiology 03/03/22 Sonny Lund MD [address] [place], [place] [address]991 Hematology/Oncology 04/22/22 Wheel Assembler Relationship Specialty Start Date End Date Gerard Le PA-C [address] [place], [place] 588791 PCP - General Family Medicine 11/26/16 No, Referral Referring 01/31/19 [place] [address] [address] [place], [place] 4067026 Primary Staff Physician Cardiology 07/15/21 Carla Burdick MD [address] [place] 893011 Primary Staff Physician Cardiology 03/03/22 Sonny Lund MD [address] [place], [place] 166591 Hematology/Oncology 04/22/22 Wheel Assembler Relationship Specialty Start Date End Date Gerard Le PA-C [address] [place] [address] PCP - General Family Medicine 11/26/16 No, Referral Referring 01/31/19 [place] [address] [address] [place], [place] 9303426 Primary Staff Physician Cardiology 07/15/21 Carla Burdick MD [address] [place] [address] Primary Staff Physician Cardiology 03/03/22 Sonny Lund MD [address] [place], [place] 818741 Hematology/Oncology 04/22/22 Wheel Assembler Relationship Specialty Start Date End Date Gerard Le PA-C [address] [place], [place] 882791 PCP - General Family Medicine 11/26/16 No, Referral Referring 01/31/19 [place] [address] [place] [place], [place] 0238726 Primary Staff Physician Cardiology 07/15/21 Carla Burdick MD [address] [place], [place] 2[address] Primary Staff Physician Cardiology 03/03/22 Sonny Lund MD [address] [place], [place] 77839691 Hematology/Oncology 04/22/22 Wheel Assembler Relationship Specialty Start Date End Date Gerard Le PA-C [address] [place] [address] PCP - General Family Medicine 11/26/16 No, Referral Referring 01/31/19 [place] [address] [address] [place], [place] 3238726 Primary Staff Physician Cardiology 07/15/21 Carla Burdick MD [address] [place] [address] Primary Staff Physician Cardiology 03/03/22 Sonny Lund MD [address] [place] [address] Hematology/Oncology 04/22/22 Wheel Assembler Relationship Specialty Start Date End Date Gerard Le PA-C [address] [place], [place] 288141 PCP - General Family Medicine 11/26/16 No, Referral Referring 01/31/[place] [address] [place] [place], [place] 9305026 Primary Staff Physician Cardiology 07/15/21 Carla Burdick MD [address] [facility] [place], [place] 255831 Primary Staff Physician Cardiology 03/03/22 Sonny Lund MD [address] [place], [place] 262651 Hematology/Oncology 04/22/22 Wheel Assembler Relationship Specialty Start Date End Date Gerard Le PA-C [address] [place] [address] PCP - General Family Medicine 11/26/16 No, Referral Referring 01/31/19 [place] [address] [address] [place], [place] 9519026 Primary Staff Physician Cardiology 07/15/21 Carla Burdick MD [address] [facility] [place] [address] Primary Staff Physician Cardiology 03/03/22 Sonny Lund MD [address] [place], [place] 765921 Hematology/Oncology 04/22/22 Wheel Assembler Relationship Specialty Start Date End Date Gerard Le PA-C [address] [place], [place] 348401 PCP - General Family Medicine 11/26/16 No, Referral Referring 01/31/[place] [address] [place] [place], [place] 0572326 Primary Staff Physician Cardiology 07/15/21 Carla Burdick MD [address] [facility] [place], [place] 029911 Primary Staff Physician Cardiology 03/03/22 Sonny Lund MD [address] [place], [place] 465611 Hematology/Oncology 04/22/22 Wheel Assembler Relationship Specialty Start Date End Date Gerard Le PA-C [address] [place] [address] PCP - General Family Medicine 11/26/16 No, Referral Referring 01/31/19 [place] [address] [address] [place], [place] 3403926 Primary Staff Physician Cardiology 07/15/21 Carla Burdick MD [address] [facility] [place], [place] 233811 Primary Staff Physician Cardiology 03/03/22 Sonny Lund MD [address] [place] 210951 Hematology/Oncology 04/22/22 Wheel Assembler Relationship Specialty Start Date End Date Gerard Le PA-C [address] [place], [place] 147851 PCP - General Family Medicine 11/26/16 No, Referral Referring 01/31/19 [place] [address] [address] [place], [place] 4984226 Primary Staff Physician Cardiology 07/15/21 Carla Burdick MD [address] [facility] [place], [place] 458551 Primary Staff Physician Cardiology 03/03/22 Sonny Lund MD [address] [place], [place] 489551 Hematology/Oncology 04/22/22 Wheel Assembler Relationship Specialty Start Date End Date Gerard Le PA-C [address] [place] [address] PCP - General Family Medicine 11/26/16 No, Referral Referring 01/31/19 [place] [address] [address] [place], [place] 5051226 Primary Staff Physician Cardiology 07/15/21 Carla Burdikc MD [address] [facility] [place] 544391 Primary Staff Physician Cardiology 03/03/22 Sonny Lund MD [address] [place], [place] [address]291 Hematology/Oncology 04/22/22 Wheel Assembler Relationship Specialty Start Date End Date Gerard Le PA-C [address] [place], [place] 407221 PCP - General Family Medicine 11/26/16 No, Referral Referring 01/31/19 [place] [address] [address] [place], [place] 5186026 Primary Staff Physician Cardiology 07/15/21 Carla Burdick MD [address] [facility] [place], [place] 979751 Primary Staff Physician Cardiology 03/03/22 Sonny Lund MD [address] [facility] [place], [place] 780821 Hematology/Oncology 04/22/22 Wheel Assembler Relationship Specialty Start Date End Date Gerard Le PA-C [address] [place] [address] PCP - General Family Medicine 11/26/16 No, Referral Referring 01/31/19 [place] [address] [address] [place], [place] 5004926 Primary Staff Physician Cardiology 07/15/21 Carla Burdick MD [address] [place], [place] 722631 Primary Staff Physician Cardiology 03/03/22 Sonny Lund MD [address] [facility] [place] [address]111 Hematology/Oncology 04/22/22 Wheel Assembler Relationship Specialty Start Date End Date Gerard Le PA-C [address] [place], [place] 033301 PCP - General Family Medicine 11/26/16 No, Referral Referring 01/31/19 [place] [address] [place], [place] 1105126 Primary Staff Physician Cardiology 07/15/21 Carla Burdick MD [address] [facility] [place], [place] 286631 Primary Staff Physician Cardiology 03/03/22 Sonny Lund MD [address] [place], [place] 555531 Hematology/Oncology 04/22/22 Wheel Assembler Relationship Specialty Start Date End Date Gerard Le PA-C [address] [place] [address] PCP - General Family Medicine 11/26/16 No, Referral Referring 01/31/19 [place] [address] [address] [place], [place] 5057426 Primary Staff Physician Cardiology 07/15/21 Carla Burdick MD [address] [facility] [place] 561821 Primary Staff Physician Cardiology 03/03/22 Sonny Lund MD [address] [place], [place] 475421 Hematology/Oncology 04/22/22 Wheel Assembler Relationship Specialty Start Date End Date Gerard Le PA-C [address] [place], [place] 036021 PCP - General Family Medicine 11/26/16 No, Referral Referring 01/31/19 [place] [address] [address] [place], [place] 4209426 Primary Staff Physician Cardiology 07/15/21 Carla Burdick MD [address] [place] 601321 Primary Staff Physician Cardiology 03/03/22 Sonny Lund MD [address] [place], [place] 746431 Hematology/Oncology 04/22/22 Wheel Assembler Relationship Specialty Start Date End Date Gerard Le PA-C [address] [place] [address] PCP - General Family Medicine 11/26/16 No, Referral Referring 01/31/19 [place] [address] [address] [place], [place] 5087726 Primary Staff Physician Cardiology 07/15/21 Carla Burdick MD [address] [place], [place] 753391 Primary Staff Physician Cardiology 03/03/22 Sonny Lund MD [address] [place], [place] 001741 Hematology/Oncology 04/22/22 Wheel Assembler Relationship Specialty Start Date End Date Gerard Le PA-C [address] [place], [place] 028111 PCP - General Family Medicine 11/26/16 No, Referral Referring 01/31/19 [place] [address] [address] [place], [place] 8367426 Primary Staff Physician Cardiology 07/15/21 Carla Burdick MD [address] [facility] [place], [place] 251811 Primary Staff Physician Cardiology 03/03/22 Sonny Lund MD [address] [facility] [place] 095911 Hematology/Oncology 04/22/22 Wheel Assembler Relationship Specialty Start Date End Date Gerard Le PA-C [address] [place], [place] 503571 PCP - General Family Medicine 11/26/16 No, Referral Referring 01/31/19 [place] [address] [address] [place], [place] 4174426 Primary Staff Physician Cardiology 07/15/21 Wheel Assembler Relationship Specialty Start Date End Date Gerard Le PA-C [address] [place], [place] 052221 PCP - General Family Medicine 11/26/16 No, Referral Referring 01/31/19 [place] [address] [place] [address] Primary Staff Physician Cardiology 07/15/21 Carla Burdick MD [address] [place], [place] 18143691 Primary Staff Physician Cardiology 03/03/22 Sonny Lund MD [address] [place], [place] 694641 Hematology/Oncology 04/22/22 Wheel Assembler Relationship Specialty Start Date End Date Dianne Le PA-C PCP - General Family Medicine 11/26/16 No, Referral Referring 01/31/19 [place] [address] [place] [address] Primary Staff Physician Cardiology 07/15/21 Carla Burdick MD [address] [place], [place] 752081 Primary Staff Physician Cardiology 03/03/22 Sonny Lund MD [address] [place] [address] Hematology/Oncology 04/22/22 Deysi Collazo APRN.SOCIAL SCIENCE INSTRUCTOR [address] [place], [place] 094941 [facility] Belt [facility]ove[facility] Family Medicine 06/09/24 Sandra Bell APRN.SOCIAL SCIENCE INSTRUCTOR [address] [place] [address] V Belt Coverer Family Medicine 06/09/24 Wheel Assembler Relationship Specialty Start Date End Date No, Referral Referring 01/31/19 [place] [address] [address] [place], [place] 9816826 Primary Staff Physician Cardiology 07/15/21 Carla Burdick MD [address] [place] [address] Primary Staff Physician Cardiology 03/03/22 Sonny Lund MD [address] [place] [address] Hematology/Oncology 04/22/22 Deysi Collazo APRN.SOCIAL SCIENCE INSTRUCTOR [address] [place] [address] V Belt Coverer Family [facility] 06/09/24 Sandra Bell APRN.SOCIAL SCIENCE INSTRUCTOR [address] [place] [address] [facility] 06/09/24 Wheel Assembler Relationship Specialty Start Date End Date Deysi Collazo APRN.SOCIAL SCIENCE INSTRUCTOR [address] [place] [address] PCP - General Family Medicine 07/07/24 No, Referral Referring 01/31/19 [place] [address] [place], [place] 0009626 Primary Staff Physician Cardiology 07/15/21 Carla Burdick MD [address] [place] [address] Primary Staff Physician Cardiology 03/03/22 Sonny Lund MD [address] [place] [address] Hematology/Oncology 04/22/22 Deysi Collazo APRN.SOCIAL SCIENCE INSTRUCTOR [address] [place], [place] 862881 [facility] 06/09/24 Sandra Bell APRN.SOCIAL SCIENCE INSTRUCTOR [address] [place] [address] [facility] 06/09/24 Wheel Assembler Relationship Specialty Start Date End Date Deysi Collazo APRN.SOCIAL SCIENCE INSTRUCTOR [address] [place] [address] PCP - General Family Medicine 07/07/24 No, Referral Referring 01/31/19 [place] [address] [address] [place], [place] 3255226 Primary Staff Physician Cardiology 07/15/21 Carla Burdick MD [address] [place] [address] Primary Staff Physician Cardiology 03/03/22 Sonny Lund MD [address] [facility] [place] [address] Hematology/Oncology 04/22/22 Deysi Collazo APRN.SOCIAL SCIENCE INSTRUCTOR [address] [place] [address] [facility] 06/09/24 Sandra Bell TEXT TRANSCRIBER.SOCIAL SCIENCE INSTRUCTOR [address] [place] [address] [facility] 06/09/24 Wheel Assembler Relationship Specialty Start Date End Date Deysi oCllazo, TEXT TRANSCRIBER.SOCIAL SCIENCE INSTRUCTOR [address] [place] [address] PCP - General Family Medicine 07/07/24 No, Referral Referring 01/31/19 [place] [address] [place], [place] 7513826 Primary Staff Physician Cardiology 07/15/21 Carla Burdick MD [address] [facility] [place] 087531 Primary Staff Physician Cardiology 03/03/22 Sonny Lund MD [address] [facility] [place], [place] [address]11781 Hematology/Oncology 04/22/22 Deysi Collazo, TERI.SOCIAL SCIENCE INSTRUCTOR [address] [place], [place] 392631 V Belt Coverer Family [facility] 06/09/24 Sandar Bell TEXT TRANSCRIBER.SOCIAL SCIENCE INSTRUCTOR [address] [place], [place] 830861 [facility] 06/09/24 Wheel Assembler Relationship Specialty Start Date End Date Deysi Collazo, TERI.SOCIAL SCIENCE INSTRUCTOR [address] [place], [place] 018751 PCP - General Family Medicine 07/07/24 No, Referral Referring 01/31/19 [place] [address] [place] [place], [place] 0164726 Primary Staff Physician Cardiology 07/15/21 Carla Burdick MD [address] [place] [address] Primary Staff Physician Cardiology 03/03/22 Sonny Lund MD [address] [facility] [place] [address] Hematology/Oncology 04/22/22 Deysi Collazo APRN.SOCIAL SCIENCE INSTRUCTOR [address] [place], [place] 229607 [phone] [facility] 06/09/24 Sandra Bell APRN.SOCIAL SCIENCE INSTRUCTOR [address] [place], [place] 618231 [facility] 06/09/24 Wheel Assembler Relationship Specialty Start Date End Date Deysi Collazo APRN.SOCIAL SCIENCE INSTRUCTOR [address] [place] [address] PCP - General Family Medicine 07/07/24 No, Referral Referring 01/31/19 [place] [address] [place] [address] Primary Staff Physician Cardiology 07/15/21 Carla Burdick MD [address] [place] [address] Primary Staff Physician Cardiology 03/03/22 Sonny Lund MD [address] [facility] [address] Hematology/Oncology 04/22/22 Deysi Collazo APRN.SOCIAL SCIENCE INSTRUCTOR [address] [place] [address] [facility] 06/09/24 Sandra Bell APRN.SOCIAL SCIENCE INSTRUCTOR [address] [place] [address] [facility] Belt Cove[facility] Family [facility] 06/09/24 Wheel Assembler Relationship Specialty Start Date End Date Deysi Collazo APRN.SOCIAL SCIENCE INSTRUCTOR [address] [facility] [place] [address] PCP - General Family Medicine 07/07/24 No, Referral Referring 01/31/19 [place] [address] [address] [place], [place] 3834426 Primary Staff Physician Cardiology 07/15/21 Carla Burdick MD [address] [place] [address] Primary Staff Physician Cardiology 03/03/22 Sonny Lund MD [address] [place] [address] Hematology/Oncology 04/22/22 Deysi Collazo APRN.SOCIAL SCIENCE INSTRUCTOR [address] [facility] [place] [address] [facility] Family [facility] 06/09/24 Sandra Bell APRN.SOCIAL SCIENCE INSTRUCTOR [address] [place] [address] [facility] Belt [facility] Family [facility] 06/09/24 Wheel Assembler Relationship Specialty Start Date End Date Deysi Collazo APRN.SOCIAL SCIENCE INSTRUCTOR [address] [place] [address] PCP - General Family Medicine 07/07/24 No, Referral Referring 01/31/19 [place] [address] [place] [address] Primary Staff Physician Cardiology 07/15/21 Carla Burdick MD [address] [place], [place] 772231 Primary Staff Physician Cardiology 03/03/22 Sonny Lund MD [address] [place] [address] Hematology/Oncology 04/22/22 Deysi Collazo APRN.SOCIAL SCIENCE INSTRUCTOR [address] [place], [place] 341371 [facility] Family [facility] 06/09/24 Sandra Bell APRN.SOCIAL SCIENCE INSTRUCTOR [address] [place], [place] 496341 [facility] Belt Coverer Family [facility] 06/09/24 Wheel Assembler Relationship Specialty Start Date End Date Deysi Collazo APRN.SOCIAL SCIENCE INSTRUCTOR [address] [place], [place] 048691 PCP - General Family Medicine 07/07/24 No, Referral Referring 01/31/19 [place] [address] [place] [address] Primary Staff Physician Cardiology 07/15/21 Carla Burdick MD [address] [facility] [place] [address] Primary Staff Physician Cardiology 03/03/22 Sonny Lund MD [address] [place] [address] Hematology/Oncology 04/22/22 Deysi Collazo APRN.SOCIAL SCIENCE INSTRUCTOR [address] [place] [address] V Belt Coverer Family [facility] 06/09/24 Sandra Bell APRN.SOCIAL SCIENCE INSTRUCTOR [address] [place] [address] [facility] 06/09/24 Wheel Assembler Relationship Specialty Start Date End Date Deysi Collazo APRN.SOCIAL SCIENCE INSTRUCTOR [address] [place] [address] PCP - General Family Medicine 07/07/24 No, Referral Referring 01/31/19 [place] [address] [address] [place], [place] [id number] Primary Staff Physician Cardiology 07/15/21 Carla Burdick MD [address] [place] [address] Primary Staff Physician Cardiology 03/03/22 Sonny Lund MD [address] [place] [address] Hematology/Oncology 04/22/22 Deysi Collazo APRN.SOCIAL SCIENCE INSTRUCTOR [address] [place] [address] [facility] Belt [employer] Family [facility] 06/09/24 Sandra Bell TEXT TRANSCRIBER.SOCIAL SCIENCE INSTRUCTOR [address] [place], [place] [address] [phone] [facility] 06/09/24 Wheel Assembler Relationship Specialty Start Date End Date Deysi Collazo, TEXT TRANSCRIBER.SOCIAL SCIENCE INSTRUCTOR [address] [place], [place] [address] PCP - General Family Medicine 07/07/24 No, Referral Referring 01/31/19 [place] [address] [place] [address] Primary Staff Physician Cardiology 07/15/21 Carla Burdick MD [address] [place], [place] [id number] Primary Staff Physician Cardiology 03/03/22 Sonny Lund MD [address] [place] [address] Hematology/Oncology 04/22/22 Deysi Collazo, TEXT TRANSCRIBER.SOCIAL SCIENCE INSTRUCTOR [address] [place] [address] [facility] 06/09/24 Sandra Bell, TEXT TRANSCRIBER.SOCIAL SCIENCE INSTRUCTOR [address] [place], [place] [address] [facility] 06/09/24 Wheel Assembler Relationship Specialty Start Date End Date Deysi Collazo, TEXT TRANSCRIBER.SOCIAL SCIENCE INSTRUCTOR [address] [place], [place] [address] [phone] PCP - General Family Medicine 07/07/24 No, Referral Referring 01/31/19 [place] [address] [address] [place], [place] [id number] Primary Staff Physician Cardiology 07/15/21 Carla Burdick MD [address] [place] [address] Primary Staff Physician Cardiology 03/03/22 Sonny Lund MD [address] [place] [address] Hematology/Oncology 04/22/22 Deysi Collazo APRN.SOCIAL SCIENCE INSTRUCTOR [address] [place] [address] V Belt Coverer Family [facility] 06/09/24 Sandra Bell APRN.SOCIAL SCIENCE INSTRUCTOR [address] [place] [address] [facility] 06/09/24 Wheel Assembler Relationship Specialty Start Date End Date Deysi Collazo APRN.SOCIAL SCIENCE INSTRUCTOR [address] [place] [address] PCP - General Family Medicine 07/07/24 No, Referral Referring 01/31/19 [place] [address] [place] [address] Primary Staff Physician Cardiology 07/15/21 Carla Burdick MD [address] [place] [address] Primary Staff Physician Cardiology 03/03/22 Deysi Collazo APRN.SOCIAL SCIENCE INSTRUCTOR [address] [place] [address] [facility] Family [facility] 06/09/24 Sandra Bell APRN.SOCIAL SCIENCE INSTRUCTOR [address] [place] [address] [facility] Wheel Assembler Relationship Specialty Start Date End Date Deysi Collazo TEXT TRANSCRIBER.SOCIAL SCIENCE INSTRUCTOR [address] [place] [address] PCP - General Family Medicine 07/07/24 No, Referral Referring 01/31/19 [place] [address] [place] [address] Primary Staff Physician Cardiology 07/15/21 Carla Burdick MD [address] [place] [address] Primary Staff Physician Cardiology 03/03/22 Deysi Collazo, TEXT TRANSCRIBER.SOCIAL SCIENCE INSTRUCTOR [address] [place] [address] [facility] 06/09/24 Sandra Bell, TEXT TRANSCRIBER.SOCIAL SCIENCE INSTRUCTOR [address] [place] [address] [facility] 06/09/24 Wheel Assembler Relationship Specialty Start Date End Date Deysi Collazo, TEXT TRANSCRIBER.SOCIAL SCIENCE INSTRUCTOR [address] [place] [address] PCP - General Family Medicine 07/07/24 No, Referral Referring 01/31/19 [place] [address] [place] [address] Primary Staff Physician Cardiology 07/15/21 Carla Burdick MD [address] [facility] [place] [address] Primary Staff Physician Cardiology 03/03/22 Deysi Collazo APRN.SOCIAL SCIENCE INSTRUCTOR [address] [place] [address] [facility] 06/09/24 Sandra Bell APRN.SOCIAL SCIENCE INSTRUCTOR [address] [place] [address] V Belt Coverer Family [facility] 06/09/24 Wheel Assembler Relationship Specialty Start Date End Date Deysi Collazo APRN.SOCIAL SCIENCE INSTRUCTOR [address] [place] [address] PCP - General Family Medicine 07/07/24 No, Referral Referring 01/31/19 [place] [address] [place] [address] Primary Staff Physician Cardiology 07/15/21 Carla Burdick MD [address] [place] [address] Primary Staff Physician Cardiology 03/03/22 Deysi Collazo APRN.SOCIAL SCIENCE INSTRUCTOR [address] [place] [address] [facility] 06/09/24 Sandra Bell APRN.SOCIAL SCIENCE INSTRUCTOR [address] [place] [address] [facility] 06/09/24 Team Status: Active Member Role/Relationship Status Dates Deysi Collazo TENNIS INSTRUCTOR, TENNIS INSTRUCTOR-C Primary Care Provider Active Team Status: Active Member Role/Relationship Status Dates Deysi Hadon TENNIS INSTRUCTOR, TENNIS INSTRUCTOR-C Primary Care Provider Active Start: January 07, 2025 Dr. Luis Armando Harry MD Emergency Provider Active Sta rt: January 07, 2025 Dr. Radha Heller MD Admit Provider Active Star t: January 07, 2025 Dr. Radha Heller MD Attending Provider Active Start: January 07, 2025 Team Status: Inactive Member Role/Relationship Status Dates Deysi Hadon TENNIS INSTRUCTOR, TENNIS INSTRUCTOR-C Primary Care Provider Active Start: January 07, [...] Active Member Role/Relationship Status Dates Deysi Haagen TENNIS INSTRUCTOR, TENNIS INSTRUCTOR-C Primary Care Provider Active Start: January 08, 2025 Dr. Abundio Turcios MD Attending Provider Active S tart: January 08, 2025 Team Status: Active Member Role/Relationship Status Dates Deysi Haagen TENNIS INSTRUCTOR, TENNIS INSTRUCTOR-C Primary Care Provider Active Start: January 08, 2025 Dr. Yaniv Masters MD Attending Provider Active S tart: January 08, 2025 Team Status: Active Member Role/Relationship Status Dates Desyi Haagen TENNIS INSTRUCTOR, TENNIS INSTRUCTOR-C Primary Care Provider Active Start: January 08, [...] Provider Active Start: January 08, 2025 Dr. Jonahtan Funez MD Other Provider Active St art: [...] Active Member Role/Relationship Status Dates Deysi Collazo TENNIS INSTRUCTOR, TENNIS INSTRUCTOR-C Primary Care Provider Active Start: January 09, [...] Active Member Role/Relationship Status Dates Deysi Collazo TENNIS INSTRUCTOR, TENNIS INSTRUCTOR-C Primary Care Provider Active Start: January 10, [...] Active Member Role/Relationship Status Dates Deysi Collazo TENNIS INSTRUCTOR, TENNIS INSTRUCTOR-C Primary Care Provider Active Start: January 11, [...] January 23, 2025 End: January 23, 2025 Wheel Assembler Relationship Specialty Start Date End Date Deysi Collazo APRN.SOCIAL SCIENCE INSTRUCTOR [address] [place], [place] [address] PCP - General Family Medicine 07/07/24 No, Referral Referring 01/31/19 [place] [address] [place] [address] Primary Staff Physician Cardiology 07/15/21 Carla Burdick MD [address] [place] [address] Primary Staff Physician Cardiology 03/03/22 Deysi Collazo APRN.SOCIAL SCIENCE INSTRUCTOR [address] [facility] [place] [address] [facility] 06/09/24 Sandra Bell, TEXT TRANSCRIBER.SOCIAL SCIENCE INSTRUCTOR [address] [facility] [place] [address] [facility] 06/09/24 Team Status: Active Member Role/Relationship Status Dates Deysi Collazo TENNIS INSTRUCTOR, TENNIS INSTRUCTOR-C Primary Care Provider Active Start: January 08, [...] February 13, 2025 End: February 13, 2025 Wheel Assembler Relationship Specialty Start Date End Date Deysi Collazo APRN.SOCIAL SCIENCE INSTRUCTOR [address] [place] [address] PCP - General Family Medicine 07/07/24 No, Referral Referring 01/31/19 [place] [address] [address] [place], [place] [id number] Primary Staff Physician Cardiology 07/15/21 Carla Burdick MD [address] [place], [place] [id number] Primary Staff Physician Cardiology 03/03/22 Deysi Collazo, TEXT TRANSCRIBER.SOCIAL SCIENCE INSTRUCTOR [address] [place], [place] [id number] [facility] 06/09/24 Sandra Bell, TEXT TRANSCRIBER.SOCIAL SCIENCE INSTRUCTOR [address] [place], [place] [id number] [facility] 06/09/24 Team Status: Inactive Member Role/Relationship Status [...] Inactive Member Role/Relationship Status Dates Deysi Collazo TENNIS INSTRUCTOR, TENNIS INSTRUCTOR-C Primary care physician Active Start: January 07, [...] Active Member Role/Relationship Status Dates Deysi Collazo TENNIS INSTRUCTOR, TENNIS INSTRUCTOR-C Primary care physician Active Start: January 08, 2025 Dr. Abundio Turcios MD Attending physician Active Start: January 08, 2025 Dr. Carla Ha DO Referring Provider Active Start: January 08, 2025 Team Status: Active Member Role/Relationship Status Dates Deysi Collazo TENNIS INSTRUCTOR, TENNIS INSTRUCTOR-C Primary care physician Active Start: January 08, 2025 Dr. Yaniv Masters MD Attending physician Active Start: January 08, 2025 Team Status: Active Member Role/Relationship Status Dates Deysi Collazo TENNIS INSTRUCTOR, TENNIS INSTRUCTOR-C Primary care physician Active Start: January 08, [...] Practitioner Active Start: January 08, 2025 Dr. Red Lucia MD Nurse Practitioner [...] Active Member Role/Relationship Status Dates Deysi Collazo TENNIS INSTRUCTOR, TENNIS INSTRUCTOR-C Primary care physician Active Start: January 09, [...] Active Member Role/Relationship Status Dates Deysi Collazo TENNIS INSTRUCTOR, TENNIS INSTRUCTOR-C Primary care physician Active Start: January 10, 2025 Dr. Luis Armando Harry MD Emergency Department Physician Active Start: January 10, 2025 Dr. Radha Heller MD Admitting physician Active Start: January 10, 2025 Dr. Radha Heller MD Nurse Practitioner Active Start: January 10, 2025 Dr. Dianne Stovall DO Attending physician Active Start: January 10, 2025 Dr. Dianne Stovall DO Nurse Practitioner Active Start: January 10, 2025 Dr. Jeremy Mcgarry MD Nurse Practitioner Active Start: January 10, 2025 Team Status: Active Member Role/Relationship Status Dates Deysi Collazo TENNIS INSTRUCTOR, TENNIS INSTRUCTOR-C Primary care physician Active Start: January 11, [...] Status: Active Member Role/Relationship Status Dates Dr. Vinecnt Flores MD Primary care physician Active Start: [...] Status: Active Member Role/Relationship Status Dates Dr. Vincnet Flores MD Primary care physician Active Start: [...] Active Member Role/Relationship Status Dates Deysi Collazo TENNIS INSTRUCTOR, TENNIS INSTRUCTOR-C Primary care physician Active Start: January 11, [...] End: May 07, 2025 Cookie Bowman NP, TENNIS INSTRUCTOR-C Attending physician Active Start: May 07, 2025 [...] physician Active Start: March 01, 2025 Dr. Vincetn Flores MD Referring Provider Active Start: March [...] Active Start: May 03, 2025 Dr. Ebony eCrrato MD Nurse Practitioner Active Start: May 03, 2025 Team Status: Inactive Member Role/Relationship Status Dates Dr. Vincent Flores MD Primary care physician Active Start: May 07, 2025 End: May 07, 2025 Dr. Vincent Flores MD Referring Provider Active Start: May 07, 2025 End: May 07, 2025 Cookie Bowman TENNIS INSTRUCTOR, TENNIS INSTRUCTOR-C Attending physician Active Start: May 07, 2025 [...] BE BASED ON THE PRIMARY CLINICAL RECORDS. [facility] provides no warranty or guarantee of the accuracy or completeness of information in this document.
[2025-05-24] MEDS: 0.9% Normal Saline (1000mL) 1,000 ML 999 ML IV (23:33)
[2025-05-24] MEDS: Insulin Lispro 10 UNIT in Syringe 0 ML 6 UNIT IV (23:33)
--- NOTE | 2025-05-24 23:45 | PCM.HP.STD ---
HPI - General General Date of Admission: 05/24/25 Date of Service: 05/24/25 Chief Complaint: weakness HPI Narrative YAO SANCHES, is a 79 Fwith pmhx CKDIII, CAD, aortic valve repair with bioprosthetic valve, chronic Afib with watchmen device, sick sinus syndrome with pacemaker in place, diastolic CHF, PAD, T2DM, chronic normocytic anemia, who presents to the ER with weakness. She drove home from [place] today and states she came straight to the ER. When she was in [place] she was hospitalized with cellulitis of the RLE and placed on doxy. She states she did not tolerate the doxy and developed several days of diarrhea. She last had diarrhea this AM and states she feels bloated. She has been having progressive worsening of weakness for several days. She and her both fell at the hotel yesterday however they were able to get themselves up. She continues to have pain and swelling of the Right leg and states she can barely walk as it hurts to weight bear. [facility] Medical History (Updated 05/24/25 @ 23:54 by Yonis KING, FERNANDO) MONIQUE (acute kidney injury) Ulcer of left lower extremity with fat layer exposed Anemia of chronic renal failure, stage 3 (moderate) Iron deficiency anemia due to chronic blood loss History of ESBL E. coli infection Type 2 diabetes mellitus Ulcer of left foot with fat layer exposed Ulcer of right foot with fat layer exposed Ulcer of right lower extremity with fat layer exposed Acute on chronic heart failure with preserved ejection fraction Hypokalemia Fatigue Vitamin D deficiency Rheumatoid arthritis Insomnia Mitral valve regurgitation Tachy-lionel syndrome Rheumatic fever GERD (gastroesophageal reflux disease) Chronic renal failure (CRF), stage 3b Cervical cancer Iron deficiency anemia Non-sustained ventricular tachycardia Pulmonary hypertension Rectal bleed Presence of Watchman left atrial appendage closure device Pacemaker Sinus node dysfunction Bradycardia History of cardioversion Skin tear of left forearm without complication Skin cancer Cardiac arrhythmia CHF exacerbation Brain aneurysm Anxiety Family history of brain aneurysm PAD (peripheral artery disease) PAF (paroxysmal atrial fibrillation) Obesity (BMI 30.0-34.9) Laceration of right middle finger Heart disease Diabetes History of cancer Fever HTN (hypertension) Diabetes mellitus type 2 in obese Chest pain, musculoskeletal HLD (hyperlipidemia) URI (upper respiratory infection) Bronchospasm with bronchitis, acute Home Medications Medication Instructions Recorded Last Taken Type atorvastatin 40 mg tablet 40 mg PO DAILY daily 01/07/25 Unknown History bumetanide 2 mg tablet 2 mg PO BID #60 tabs 01/08/25 Unknown Rx metoprolol succinate 50 mg 50 mg PO BID 02/05/25 Unknown History tablet,extended release 24 hr vitamin B complex 1 tab PO QDAY 02/05/25 Unknown History ascorbic acid (vitamin C) 500 mg 500 mg PO QDAY 02/14/25 Unknown History tablet aspirin 81 mg tablet,delayed 81 mg PO QDAY 02/14/25 Unknown History release (Adult Aspirin Regimen) metolazone 5 mg tablet 5 mg PO QDAY PRN edema 02/14/25 Unknown History pantoprazole 40 mg tablet,delayed 40 mg PO QDAY stomach 02/14/25 Unknown History release polysaccharide iron complex 150 mg 150 mg PO QDAY 02/14/25 Unknown History iron capsule (Ferrex) potassium chloride 10 mEq 10 meq PO QDAY 02/14/25 Unknown History tablet,extended release(part/cryst) spironolactone 25 mg tablet 12.5 mg PO BID daily 02/14/25 Unknown History levothyroxine 50 mcg tablet 50 mcg PO DAILY 03/01/25 Unknown History doxycycline hyclate 100 mg tablet 100 mg PO BID 04/05/25 Unknown History Allergy/AdvReac Type Severity Reaction Status Date / Time propofol AdvReac Mild Low blood Verified 05/24/25 19:23 pressure Family History Father Heart disease High cholesterol Myocardial infarction, Onset Age: 58 Mother Heart disease Surgical History Hx of abdominal surgery History of mastoidectomy History of cardiac radiofrequency ablation history skin cancer surgery history bilateral ear surgeries History of hysterectomy H/O aortic valve replacement Social History household members: spouse number of children: 1 current occupational status: retired 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 Smoking Status: Former smoker Tobacco: How many years used: 1 alcohol intake: current alcohol intake frequency: holidays/special occasions only Alcohol type: wine substance use type: does not use ROS Constitutional Constitutional: Denies chills, fatigue or fever(s) ENT HEENT: Reports other Details: very hard of hearing Cardiovascular Cardiovascular: Reports edema and lightheadedness; Denies chest pain Respiratory/Chest Respiratory/Chest: Denies cough or dyspnea Gastrointestinal Gastrointestinal: Reports diarrhea and other Details: bloating ; Denies abdominal pain, nausea or vomiting Genitourinary Genitourinary: Denies difficulty urinating, dysuria or urinary frequency Musculoskeletal Musculoskeletal: Reports other Details: leg pain Neurologic Neurologic: Denies abnormal gait Psychiatric Psychiatric: Denies anxiety or depression Hematologic/Lymphatic Hematologic/Lymphatic: Reports anemia Vital Signs Vital Signs Vital Signs: 05/24/25 19:21 05/24/25 19:38 05/24/25 21:21 Temperature 98.2 F Temperature Source Temporal Pulse Rate 88 87 Respiratory Rate 18 15 Respiratory Effort Normal Non-Labored Respiratory Pattern Normal Blood Pressure 135/59 H 131/62 H Blood Pressure Mean 84 85 Pulse Ox 91 99 Oxygen Delivery Method Room Air Room Air 05/24/25 23:00 05/24/25 23:00 05/24/25 23:06 Temperature 98 F Temperature Source Pulse Rate 81 84 85 Respiratory Rate 15 18 16 Respiratory Effort Respiratory Pattern Normal Blood Pressure 146/71 H 146/71 H Blood Pressure Mean 96 96 Pulse Ox 100 99 Oxygen Delivery Method Room Air Weight Weight: 65.1 kg Body Mass Index (BMI) 25.4 Physical Exam Const alert, oriented x3 and no apparent distress Constitutional Narrative: frail General Appearance: cooperative HEENT normocephalic and head/scalp atraumatic Eyes PERRL Neck no lymphadenopathy Resp normal respiratory effort Resp Narrative: right anterior chest wall abnormality Cardio Cardio Narrative: irregulary irregular, 3/6 systolic murmur LSB 2nd ICS GI soft to palpation and non-tender GI Narrative: mild bloating Auscultation: hyperactive bowel sounds Palpation: Negative for tender Extremity Extremity Narrative: RLE edema with some drainage Skin Skin Narrative: R foot, cracking, dry skin. erythema of the RLE Neuro oriented x3 Sensorium / Orientation: awake and alert Psych affect normal Results Lab / Micro Data 05/24/25 19:10 05/24/25 21:31 Labs: Laboratory Results - last 24 hr 05/24/25 19:10: WBC 9.6, RBC 3.79 L, Hgb 11.4 L, Hct 34.6 L, MCV 91.3, MCH 30.1, MCHC 32.9, RDW Std Deviation 68.4 H, RDW Coeff of Yonis 20.3 H, Plt Count 144 L, MPV 11.0, Immature Gran % (Auto) 1.100 H, Neut % (Auto) 68.6, Lymph % (Auto) 19.3, Wright % (Auto) 9.2, Eos % (Auto) 1.4, Baso % (Auto) 0.4, Absolute Neuts (auto) 6.6, Absolute Lymphs (auto) 1.85, Nucleated RBC % 0.2, Differential Comment SCANNED, Platelet Estimate ADEQUATE, Polychromasia 1+, Anisocytosis 2+, Sodium Cancelled, Potassium Cancelled, Chloride Cancelled, Carbon Dioxide Cancelled, Anion Gap Cancelled, BUN Cancelled, Creatinine Cancelled, Est GFR (MDRD) Non-Af Cancelled, BUN/Creatinine Ratio Cancelled, Glucose Cancelled, Calcium Cancelled, Total Bilirubin Cancelled, AST Cancelled, ALT Cancelled, Alkaline Phosphatase Cancelled, Total Protein Cancelled, Albumin Cancelled, Globulin Cancelled, Albumin/Globulin Ratio Cancelled, Lipase 62 05/24/25 20:29: Urine Color Yellow, Urine Clarity Clear, Urine pH 5.0, Ur Specific Naylor 1.015, Urine Protein 30 H, Urine Glucose (UA) Normal, Urine Ketones Negative, Urine Occult Blood 10 H, Urine Nitrite Negative, Urine Bilirubin Negative, Urine Urobilinogen Normal, Ur Leukocyte Esterase Negative, Urine RBC 0 SEEN, Urine WBC 0-5 SEEN, Ur Squamous Epith Cells 0 SEEN, Urine Bacteria 0 SEEN, Urine Mucus 0 SEEN 05/24/25 21:31: Sodium 124 L, Potassium 6.6 H*, Chloride 84 L, Carbon Dioxide 21.2, Anion Gap 18 H, BUN 122 H*, Creatinine 4.53 H, Estim Creat Clear Calc 9.14 L*, Est GFR (MDRD) Non-Af 9 L, BUN/Creatinine Ratio 26.9 H, Glucose 133 H, Calcium 9.4, Total Bilirubin 1.11, AST 54 H, ALT 21, Alkaline Phosphatase 106 H, Total Protein 6.8, Albumin 3.4, Globulin 3.4, Albumin/Globulin Ratio 1.0 05/24/25 23:08: POC Glucose 125 H Rhythm Strip Rhythm Strip: A-fib Rate: 90 Ectopy: None Assessment & Plan Assessment/Plan (1) MONIQUE (acute kidney injury): PLAN: 1. MONIQUE on CKD III - possibly due to dehydration, possibly because of ongoing diarrhea. progressive new weakness prompting presentation to the ER. Notable hyperkalemia, hyponatremia, hypochloremia. BUN 122, Cr 4.53. Anion gap 18. She is on 3 diuretics - these will be held. She will be given IV fluids with NS and recheck function in AM. ER has given calcium gluconate and insulin for hyperkalemia. Also will hold home potassium and aldactone. CT abdomen is pending. Check mag/phos, TSH. Abnormal LFTs also noted, recheck CMP in AM. Mildly decreased platelets - recheck H/H in AM. 2. Diarrhea - likely 2/2 abx use, last diarrhea this AM. some bloating. check stool for C diff. 3. RLE cellulitis - she stopped her doxy due to side effect of diarrhea. ongoing erythema, swelling, pain RLE. unclear if this is actually infectious or swelling and redness due to DVT. Obtain Venous duplex to r/o DVT. Recently drove to and from [place]. 4. Hx Afib, Sick sinus syndrome - with pacemaker, watchmen device. Not on oral anticoagulation. continue metoprolol, aspirin. EKG with paced rhythm, rate stable at this time. 5. Hx diastolic CHF - stage III diastolic failure per last echo. 6. Hx t2dm - not on home regimen, can add SSI if necessary, carb controlled diet. 7. Hypothyroidism - levothyroxine. tsh pending. 8. Chronic iron def anemia - appears to be at baseline, continue home iron supplementation 9. HLD - statin held. 10. GERD - ppi held. DVT ppx: heparin DC planning: ongoing progressive weakness - PT OT and social work consults for evaluation of home going needs. Code status: DNR-CCA, discussed with pt, she verbalizes that she does not want CPR/intubation. This patient was seen by Yonis Martin PA-C under the supervision of Dr. Brock.
[2025-05-25] VITALS (8 sets, daily range): BP systolic 133–162; BP diastolic 51–72; PULSE 88–99; RESP 18–20; TEMP 35.9–36.5; O2SAT 93–99; BMI 26.2; BMI 25.6
--- NOTE | 2025-05-25 00:13 | VDLE_ITS ---
Reason For Study Reason For Study: Swelling RIGHT LEFT GSV is normal. GSV is normal. CFV is compressible, spontaneous, competent and CFV is compressible, spontaneous, competent, and demonstrates pulsatile venous flow. demonstrates pulsatile venous flow. FV is compressible, spontaneous, competent and FV is compressible, spontaneous, competent and demonstrates pulsatile venous flow. demonstrates pulsatile venous flow. POP V is compressible, spontaneous, competent and POP V is compressible, spontaneous, competent and demonstrates pulsatile venous flow. demonstrates pulsatile venous flow. T/P Trunk is compressible. T/P Trunk is compressible. PTV is compressible. PTV is compressible. RT PerV is compressible. LT PerV is compressible. Procedure This is a venous duplex using B-mode, color flow and spectral Doppler. Exam performed portable in patient room. A preliminary report was called and/or faxed to Dr. Heller. VL/Venous Duplex US - Prem Extrem Interpretation Summary Deep veins of the lower extremities are bilaterally patent and compressible seg mentally. There is no evidence of deep vein thrombosis on either side. Valvular competence appears intact within the p roximal deep venous systems bilaterally. The great saphenous veins appear bilaterally patent and compressible segmentall y. Pulsatile flow is noted in the deep venous system bilaterally, which may be indicative of elevated central venous p ressure (i.e. congestive heart failure, pulmonary hypertension, etc.). Clinical correlation is advised. Ordering Physician: Yamileth Brock Referring Physician: Vincent Flores Chi Performed By: Margoth Reed, GABRIELLE, RVT
[2025-05-25 00:16] LABS: Creatinine, Urine (random) 74.70 mg/dL (28.00-217.00)
[2025-05-25 00:18] LABS: Urea Nitrogen, Urine 451 mg/dL (NO RANGE EST.)
[2025-05-25] MEDS: 0.9% Normal Saline (1000mL) 1,000 ML 75 ML IV (03:16)
[2025-05-25] MEDS: Heparin Injection (Vial) 5,000 UNIT/ML VIAL 5000 UNIT SC ×3 (05:51→22:32)
[2025-05-25 06:22] LABS: Hematocrit 34.7 % (37-47); Hemoglobin 11.7 g/dL (12.0-15.0); Immature Granulocytes Count 0.100 X10^3/uL (0.0-0.0); Mean Corp Hgb Conc 33.7 g/dL (32-36); Mean Corpuscular Volume 91.6 fL (81-99); Mean Platelet Vol. 10.2 fl (6.2-12.0); NRBC Flagged by Analyzer 0 % (0-5); POSITIVE MORPHOLOGY YES; Platelet Count 114 K/mm3 (150-450); RBC Distribution Width CV 20.3 % (11.6-14.6); RBC Distribution Width SD 68.0 fl (35.1-43.9); Red Blood Count 3.79 M/mm3 (4.2-5.4); White Blood Count 9.5 K/mm3 (4.4-11.0)
[2025-05-25 06:34] LABS: Differential Indicated SCAN CRITERIA MET
[2025-05-25 07:10] LABS: Magnesium 1.8 mg/dL (1.5-2.2)
[2025-05-25 07:16] LABS: AST(SGOT) 43 U/L (<=31); Alanine Aminotransfer ALT/SGPT 20 U/L (<=34); Albumin, Serum 3.2 g/dL (3.4-4.8); Alkaline Phosphatase 103 U/L (35-104); Anion Gap 20 (5-15); Calcium,Total 9.2 mg/dL (7.6-11.0); Carbon Dioxide 17.2 mmol/L (21.0-32.0); Chloride 88 mmol/L (98-108); Estimated Creatinine Clearance 9.56 ml/min (50-250); Globulin 3.3 g/dL (2.2-4.2); Glucose 108 mg/dL (70-99); Potassium 5.8 mmol/L (3.3-5.1)
[2025-05-25 07:24] LABS: BUN 113 mg/dL (4-19); BUN/Creat Ratio 26.0 RATIO (10-20)
[2025-05-25 08:01] LABS: Anisocytosis 1+; Polychromasia 1+
[2025-05-25] MEDS: Insulin Lispro 10 UNIT in Syringe 0 ML 6 UNIT IV (09:08)
[2025-05-25] MEDS: Aspirin E.C. 81 MG Tablet PO (09:13)
[2025-05-25] MEDS: Metoprolol(XL)Succ 50 MG Tablet PO ×2 (09:13→22:33)
--- NOTE | 2025-05-25 09:14 | CASEMGMT ---
Social Work Primary Care Doctor: Dr. Flores Speciality doctors: cardiology- Dr. Huynh Insurance: Aet Medicare Pharmacy: Patient utilizes [facility]. Advanced directives: Patient reported she has a POA ands LW and can provide a copy to the hospital. LNOK:. , son-Brayan Living Situation: Patient lives at home with her . There is 1 step into the house. Her son and [place] [facility]. ADL's/Prior level of functioning: independent Transportation: Patient still drives. DME: none snf/home health history: none Support/Community Services: [facility] Mental Health: none Substance abuse history: none Assessment: Patient lives at home with her . They live in a ranch style home. There is 1 step into the house. Her son and [place] [facility] Patient has DME at home. PLAN: To be determined. CHANO Costello
[2025-05-25] MEDS: 0.9% Saline Lock 10 ML Syringe IV (09:23)
--- NOTE | 2025-05-25 10:51 | PN.HOSP_ITS ---
Reason for Visit Chief Complaint: weakness Subjective Subjective Evaluated at bedside, reports the abdominal distention over the past couple of weeks, unchanged today, little bit short of breath, reports urinating well. Does seem to have chest wall defect on the right upper anterior chest wall which her and report was there before but seems more noticeable right now Objective Data Objective Data Vital Signs: Vital Signs Temp Pulse Resp BP Pulse Ox O2 Del Method 97.4 F L 90 18 138/63 H 94 Room Air 05/25/25 08:47 05/25/25 09:13 05/25/25 08:47 05/25/25 09:13 05/25/25 08:47 05/25/25 09:34 Oxygen Delivery Method Room Air Weight: 65.7 kg Body Mass Index (BMI) 25.6 Intake & Output: Intake and Output for Last 24 Hours 05/23/25 05/24/25 05/25/25 23:59 23:59 23:59 Intake Total 280 / 280 2969.55 / 2969.55 Balance 280 / 280 2969.55 / 2969.55 Lab / Micro Data 05/25/25 05:40 05/25/25 05:40 Labs: Laboratory Results - last 24 hr 05/24/25 19:10: WBC 9.6, RBC 3.79 L, Hgb 11.4 L, Hct 34.6 L, MCV 91.3, MCH 30.1, MCHC 32.9, RDW Std Deviation 68.4 H, RDW Coeff of Yonis 20.3 H, Plt Count 144 L, MPV 11.0, Immature Gran % (Auto) 1.100 H, Neut % (Auto) 68.6, Lymph % (Auto) 19.3, Gray % (Auto) 9.2, Eos % (Auto) 1.4, Baso % (Auto) 0.4, Absolute Neuts (auto) 6.6, Absolute Lymphs (auto) 1.85, Nucleated RBC % 0.2, Differential Comment SCANNED, Platelet Estimate ADEQUATE, Polychromasia 1+, Anisocytosis 2+, Sodium Cancelled, Potassium Cancelled, Chloride Cancelled, Carbon Dioxide Cancelled, Anion Gap Cancelled, BUN Cancelled, Creatinine Cancelled, Est GFR (MDRD) Non-Af Cancelled, BUN/Creatinine Ratio Cancelled, Glucose Cancelled, Calcium Cancelled, Total Bilirubin Cancelled, AST Cancelled, ALT Cancelled, Alkaline Phosphatase Cancelled, Total Protein Cancelled, Albumin Cancelled, Globulin Cancelled, Albumin/Globulin Ratio Cancelled, Lipase 62 05/24/25 20:29: Urine Color Yellow, Urine Clarity Clear, Urine pH 5.0, Ur Specific [place] 1.015, Urine Protein 30 H, Urine Glucose (UA) Normal, Urine Ketones Negative, Urine Occult Blood 10 H, Urine Nitrite Negative, Urine Bilirubin Negative, Urine Urobilinogen Normal, Ur Leukocyte Esterase Negative, Urine RBC 0 SEEN, Urine WBC 0-5 SEEN, Ur Squamous Epith Cells 0 SEEN, Urine Bacteria 0 SEEN, Urine Mucus 0 SEEN 05/24/25 21:31: Sodium 124 L, Potassium 6.6 H*, Chloride 84 L, Carbon Dioxide 21.2, Anion Gap 18 H, BUN 122 H*, Creatinine 4.53 H, Estim Creat Clear Calc 9.14 L*, Est GFR (MDRD) Non-Af 9 L, BUN/Creatinine Ratio 26.9 H, Glucose 133 H, Calcium 9.4, Total Bilirubin 1.11, AST 54 H, ALT 21, Alkaline Phosphatase 106 H, Total Protein 6.8, Albumin 3.4, Globulin 3.4, Albumin/Globulin Ratio 1.0 05/24/25 23:08: POC Glucose 125 H 05/24/25 23:21: Ur Random Sodium < 20, Urine Creatinine 74.70, Urine Urea Nitrogen 451 05/25/25 00:39: POC Glucose 134 H 05/25/25 05:40: WBC 9.5, RBC 3.79 L, Hgb 11.7 L, Hct 34.7 L, MCV 91.6, MCH 30.9, MCHC 33.7, RDW Std Deviation 68.0 H, RDW Coeff of Yonis 20.3 H, Plt Count 114 L, MPV 10.2, Immature Gran % (Auto) 1.100 H, Neut % (Auto) 71.4 H, Lymph % (Auto) 16.4 L, Gray % (Auto) 9.4, Eos % (Auto) 1.2, Baso % (Auto) 0.5, Absolute Neuts (auto) 6.8, Absolute Lymphs (auto) 1.56, Nucleated RBC % 0, Polychromasia 1+, Anisocytosis 1+, Sodium 124 L, Potassium 5.8 H, Chloride 88 L, Carbon Dioxide 17.2 L, Anion Gap 20 H, BUN 113 H*, Creatinine 4.35 H, Estim Creat Clear Calc 9.56 L*, Est GFR (MDRD) Non-Af 10 L, BUN/Creatinine Ratio 26.0 H, Glucose 108 H, Calcium 9.2, Phosphorus 5.9 H, Magnesium 1.8, Total Bilirubin 1.03, AST 43 H, ALT 20, Alkaline Phosphatase 103, Total Protein 6.5, Albumin 3.2 L, Globulin 3.3, Albumin/Globulin Ratio 1.0, TSH 5.160 H 05/25/25 05:48: POC Glucose 104 05/25/25 08:20: Lactic Acid 1.9 Micro: Microbiology 05/25/25 00:22 Stool Clostridioides difficile (PCR) - Final Radiography Diagnostic Testing: Radiology Impression Abdomen/Pelvis CT 05/24/25 20:09 IMPRESSION: Minimal right pleural effusion. Passive atelectatic airspace disease of the right lower lobe. Moderate cardiomegaly. AICD is in good position. Moderate coronary artery calcifications. Dilated supra hepatic IVC suggestive of dysfunction of the right cardiac cavities. Cirrhotic liver. Splenomegaly. Moderate ascites. Moderate anasarca/3rd spacing. Small sliding hiatal hernia. Underdistended gallbladder containing sludge. Surgical changes of the distal colon. Diffuse thickening of the stomach suggestive of gastritis. Scattered calcified hepatic granulomas. Scattered calcified splenic granulomas. Stent is noted in the superior mesenteric artery. Grade 1 anterolisthesis of L4 on L5. Moderate diffuse spondylosis. Reading Location: [place] [address] Chest X-Ray 05/24/25 22:39 IMPRESSION: AICD is in good position. Mild central pulmonary venous congestion, increased. Mild bilateral basilar atelectatic pulmonary changes, increased. Reading Location: [place] [address] Rhythm Strip Rhythm Strip: A-fib Rate: 90 Ectopy: None Physical Exam Narrative General: Alert, oriented HEENT: Atraumatic, normocephalic Eyes: Anicteric, normal conjunctiva, extraocular movements grossly intact Neck: Supple Respiratory: Diminished at the bases, normal respiratory effort Cardiovascular: Regular rate GI: Distended, not particularly tender, no rebound, guarding, rigidity Extremities: No significant pitting peripheral edema Musculoskeletal: Moving all extremities, upper right anterior chest wall with softball sized defect with paroxysmal movement with inspiration exhalation and bulging when coughing Neuro: No overt focal neurological deficits Skin: Some chronic changes on lower extremities Psych: Cooperative Assessment & Plan Assessment/Plan (1) MONIQUE (acute kidney injury): PLAN: Plan #MONIQUE on CKD III with hyperkalemia - possibly due to dehydration, possibly because of ongoing diarrhea. progressive new weakness prompting presentation to the ER. Notable hyperkalemia, hyponatremia, hypochloremia. BUN 122, Cr 4.53. Anion gap 18. She is on 3 diuretics - these will be held. She will be given IV fluids with NS and recheck function in AM. ER has given calcium gluconate and insulin for hyperkalemia. Also will hold home potassium and aldactone. CT abdomen is pending. Check mag/phos, TSH. Abnormal LFTs also noted, recheck CMP in AM. Mildly decreased platelets - recheck H/H in AM. -05/25: Creatinine 4.53 on presentation and 4.35, given continued electrolyte abnormalities and gap did consult nephrology. IV albumin ordered. They noted the hyperkalemia, potassium improving, given Kayexalate. 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 Initial plan was for paracentesis today however patient has high risk of bleeding and did receive heparin, patient nontender, depending on clinical status may be able to hold heparin and have paracentesis on Wednesday if necessary, monitor over the weekend # Chest wall defect -05/25: Patient with softball sized defect in right anterior chest wall. Appears very prominent, patient has been report they think something has been there for a while it is just more noticeable now. CT chest obtained as it appeared almost flail chest in nature and CT said anterior wall defect most likely represents resection of the anterior aspect of the mid right medial rib. When comparing directly to a previous CT of the chest does seem similar to previous. Suspect patient's current acute illness may have made this more obvious #Diarrhea - likely 2/2 abx use, last diarrhea this AM. some bloating. check stool for C diff. -05/25: Stool studies negative, continue supportive care, got short of breath with fluids may have been held, albumin given per nephro #RLE swelling - she stopped her doxy due to side effect of diarrhea. ongoing erythema, swelling, pain RLE. unclear if this is actually infectious or swelling and redness due to DVT. Obtain Venous duplex to r/o DVT. Recently drove to and from [place]. -05/25: Per verbal report patient with no MONIQUE, legs look similar to each other today, has some chronic heel problems but does not appear overly infected, will continue to monitor off antibiotics #Hx Afib, Sick sinus syndrome - with pacemaker, watchmen device. Not on oral anticoagulation. continue metoprolol, aspirin. EKG with paced rhythm, rate stable at this time. -05/25: Continue to monitor #Hx diastolic CHF - stage III diastolic failure per last echo. -05/25: Daily weights and I's and O's, fluids on pause, given albumin, proceed cautiously # Hx t2dm - not on home regimen, can add SSI if necessary, carb controlled diet. -05/25: Glucose 108 on a.m. BMP, continue present management #Hypothyroidism - levothyroxine. tsh pending. -05/25: TSH very slightly elevated, suspect this may be due to acute illness, outpatient follow-up with repeat labs #Chronic iron def anemia - appears to be at baseline, continue home iron supplementation -05/25: Hemoglobin 11.7, essentially same as yesterday, continue present management #DVT ppx: Heparin subcu Radha Heller MD Time spent in the patient's overall evaluation, decision-making process, review of diagnostic data, adjustment of management, discussion with other providers, nursing and ancillary staff involved in patient's care documentation, 40 Minutes Charges/Coding Visit Charges Inpatient E&M: 35253 Subs Hosp L2
--- NOTE | 2025-05-25 10:51 | PCM.CONS.R ---
Assessment & Plan Assessment/Plan (1) Acute renal failure: PLAN: CKD stage IIIb, baseline creatinine between 1.8-2.0. Last month creatinine was at baseline. Apparently had severe diarrhea over the last few days. Clinic abdomen appears more distended, CT abdomen with ascites. Urine sodium less than 20, urine analysis not impressive. Cirrhotic changes. Overnight she has received IV fluids. Complains of shortness of breath. Will try IV albumin Hyperkalemia. Likely related to prior medication use, acidosis, renal failure. Received a dose of Kayexalate. Potassium is better. On examination she has what looks like flail chest over the right anterior lung area. Chest x-ray is not impressive. Discussed with hospitalist bedside. CT chest will be requested. noticed it within the last couple of days. Unclear when exactly happened Ascites. Fluid tap as needed Discussed with at bedside Discussed with hospitalist HPI Consult Data Date of Consult: 05/25/25 HPI Narrative Reason for Consultation: Acute renal failure HPI Narrative: YAO SANCHES, is a 79 F who presents to the hospital with several complaints. She is known to me from previous admission. She has known history of CKD stage IIIb, baseline creatinine around 1.8-2.0, congestive heart failure with diastolic dysfunction, atrial fibrillation, history of rheumatic valve disease. Follows with cardiology. Went to [place] for about a week and a half, apparently was treated for cellulitis with doxycycline. Resulted in severe diarrhea hence doxycycline was stopped. They drove back yesterday with a stop in between. Apparently she may have fallen at a hotel on the way as per admission records. says it was not that big of a fall. Found to have acute renal failure, creatinine of more than 4. Associated hyperkalemia. She is currently alert, awake. Abdomen appears distended, this is new compared to before. Other than her usual medications and doxycycline for cellulitis, no other new medications, [id number] medications. Minimal lower extremity edema. FORMERLY [facility], [facility]–1983 Medical History (Updated 05/24/25 @ 23:54 by Yonis KING, PA) MONIQUE (acute kidney injury) Ulcer of left lower extremity with fat layer exposed Anemia of chronic renal failure, stage 3 (moderate) Iron deficiency anemia due to chronic blood loss History of ESBL E. coli infection Type 2 diabetes mellitus Ulcer of left foot with fat layer exposed Ulcer of right foot with fat layer exposed Ulcer of right lower extremity with fat layer exposed Acute on chronic heart failure with preserved ejection fraction Hypokalemia Fatigue Vitamin D deficiency Rheumatoid arthritis Insomnia Mitral valve regurgitation Tachy-lionel syndrome Rheumatic fever GERD (gastroesophageal reflux disease) Chronic renal failure (CRF), stage 3b Cervical cancer Iron deficiency anemia Non-sustained ventricular tachycardia Pulmonary hypertension Rectal bleed Presence of Watchman left atrial appendage closure device Pacemaker Sinus node dysfunction Bradycardia History of cardioversion Skin tear of left forearm without complication Skin cancer Cardiac arrhythmia CHF exacerbation Brain aneurysm Anxiety Family history of brain aneurysm PAD (peripheral artery disease) PAF (paroxysmal atrial fibrillation) Obesity (BMI 30.0-34.9) Laceration of right middle finger Heart disease Diabetes History of cancer Fever HTN (hypertension) Diabetes mellitus type 2 in obese Chest pain, musculoskeletal HLD (hyperlipidemia) URI (upper respiratory infection) Bronchospasm with bronchitis, acute Home Medications Medication Instructions Recorded Last Taken Type atorvastatin 40 mg tablet 40 mg PO DAILY daily 01/07/25 05/24/25 20:04 History bumetanide 2 mg tablet 2 mg PO BID #60 tabs 01/08/25 05/23/25 Rx metoprolol succinate 50 mg 50 mg PO BID blood pressure 02/05/25 05/24/25 06:07 History tablet,extended release 24 hr vitamin B complex 1 tab PO QDAY supplement 02/05/25 05/23/25 History ascorbic acid (vitamin C) 500 mg 500 mg PO QDAY supplement 02/14/25 Unknown History tablet aspirin 81 mg tablet,delayed 81 mg PO QDAY heart health 02/14/25 05/24/25 06:03 History release (Adult Aspirin Regimen) metolazone 5 mg tablet 5 mg PO QDAY PRN edema 02/14/25 Unknown History pantoprazole 40 mg tablet,delayed 40 mg PO QDAY stomach 02/14/25 05/24/25 06:08 History release polysaccharide iron complex 150 mg 150 mg PO QDAY low iron 02/14/25 05/23/25 History iron capsule (Ferrex) potassium chloride 10 mEq 10 meq PO QDAY low potassium 02/14/25 05/23/25 History tablet,extended release(part/cryst) spironolactone 25 mg tablet 12.5 mg PO BID edema 02/14/25 05/22/25 History levothyroxine 50 mcg tablet 50 mcg PO DAILY thyroid 03/01/25 05/24/25 History doxycycline hyclate 100 mg tablet 100 mg PO BID antibiotic 04/05/25 Unknown History Allergy/AdvReac Type Severity Reaction Status Date / Time propofol AdvReac Mild Low blood Verified 05/24/25 19:23 pressure Family History Father Heart disease High cholesterol Myocardial infarction, Onset Age: 58 Mother Heart disease Surgical History Hx of abdominal surgery History of mastoidectomy History of cardiac radiofrequency ablation history skin cancer surgery history bilateral ear surgeries History of hysterectomy H/O aortic valve replacement Social History household members: spouse number of children: 1 current occupational status: retired 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 Smoking Status: Former smoker Tobacco: How many years used: 1 alcohol intake: current alcohol intake frequency: holidays/special occasions only Alcohol type: wine substance use type: does not use ROS ROS Narrative Negative except history Physical Exam Narrative Alert awake oriented x 3 no obvious distress no pallor no icterus no JVD s1s2 no murmurs lungs clear abdomen soft no organomegaly Lab / Micro Data 05/25/25 05:40 05/25/25 05:40 Labs: Laboratory Results - last 24 hr 05/24/25 19:10: WBC 9.6, RBC 3.79 L, Hgb 11.4 L, Hct 34.6 L, MCV 91.3, MCH 30.1, MCHC 32.9, RDW Std Deviation 68.4 H, RDW Coeff of Yonis 20.3 H, Plt Count 144 L, MPV 11.0, Immature Gran % (Auto) 1.100 H, Neut % (Auto) 68.6, Lymph % (Auto) 19.3, [place] % (Auto) 9.2, Eos % (Auto) 1.4, Baso % (Auto) 0.4, Absolute Neuts (auto) 6.6, Absolute Lymphs (auto) 1.85, Nucleated RBC % 0.2, Differential Comment SCANNED, Platelet Estimate ADEQUATE, Polychromasia 1+, Anisocytosis 2+, Sodium Cancelled, Potassium Cancelled, Chloride Cancelled, Carbon Dioxide Cancelled, Anion Gap Cancelled, BUN Cancelled, Creatinine Cancelled, Est GFR (MDRD) Non-Af Cancelled, BUN/Creatinine Ratio Cancelled, Glucose Cancelled, Calcium Cancelled, Total Bilirubin Cancelled, AST Cancelled, ALT Cancelled, Alkaline Phosphatase Cancelled, Total Protein Cancelled, Albumin Cancelled, Globulin Cancelled, Albumin/Globulin Ratio Cancelled, Lipase 62 05/24/25 20:29: Urine Color Yellow, Urine Clarity Clear, Urine pH 5.0, Ur Specific [place] 1.015, Urine Protein 30 H, Urine Glucose (UA) Normal, Urine Ketones Negative, Urine Occult Blood 10 H, Urine Nitrite Negative, Urine Bilirubin Negative, Urine Urobilinogen Normal, Ur Leukocyte Esterase Negative, Urine RBC 0 SEEN, Urine WBC 0-5 SEEN, Ur Squamous Epith Cells 0 SEEN, Urine Bacteria 0 SEEN, Urine Mucus 0 SEEN 05/24/25 21:31: Sodium 124 L, Potassium 6.6 H*, Chloride 84 L, Carbon Dioxide 21.2, Anion Gap 18 H, BUN 122 H*, Creatinine 4.53 H, Estim Creat Clear Calc 9.14 L*, Est GFR (MDRD) Non-Af 9 L, BUN/Creatinine Ratio 26.9 H, Glucose 133 H, Calcium 9.4, Total Bilirubin 1.11, AST 54 H, ALT 21, Alkaline Phosphatase 106 H, Total Protein 6.8, Albumin 3.4, Globulin 3.4, Albumin/Globulin Ratio 1.0 05/24/25 23:08: POC Glucose 125 H 05/24/25 23:21: Ur Random Sodium < 20, Urine Creatinine 74.70, Urine Urea Nitrogen 451 05/25/25 00:39: POC Glucose 134 H 05/25/25 05:40: WBC 9.5, RBC 3.79 L, Hgb 11.7 L, Hct 34.7 L, MCV 91.6, MCH 30.9, MCHC 33.7, RDW Std Deviation 68.0 H, RDW Coeff of Yonis 20.3 H, Plt Count 114 L, MPV 10.2, Immature Gran % (Auto) 1.100 H, Neut % (Auto) 71.4 H, Lymph % (Auto) 16.4 L, [place] % (Auto) 9.4, Eos % (Auto) 1.2, Baso % (Auto) 0.5, Absolute Neuts (auto) 6.8, Absolute Lymphs (auto) 1.56, Nucleated RBC % 0, Polychromasia 1+, Anisocytosis 1+, Sodium 124 L, Potassium 5.8 H, Chloride 88 L, Carbon Dioxide 17.2 L, Anion Gap 20 H, BUN 113 H*, Creatinine 4.35 H, Estim Creat Clear Calc 9.56 L*, Est GFR (MDRD) Non-Af 10 L, BUN/Creatinine Ratio 26.0 H, Glucose 108 H, Calcium 9.2, Phosphorus 5.9 H, Magnesium 1.8, Total Bilirubin 1.03, AST 43 H, ALT 20, Alkaline Phosphatase 103, Total Protein 6.5, Albumin 3.2 L, Globulin 3.3, Albumin/Globulin Ratio 1.0, TSH 5.160 H 05/25/25 05:48: POC Glucose 104 05/25/25 08:20: Lactic Acid 1.9 Micro: Microbiology 05/25/25 00:22 Stool Clostridioides difficile (PCR) - Final Rhythm Strip Rhythm Strip: A-fib Rate: 90 Ectopy: None Imaging Radiology Impression Abdomen/Pelvis CT 05/24/25 20:09 IMPRESSION: Minimal right pleural effusion. Passive atelectatic airspace disease of the right lower lobe. Moderate cardiomegaly. AICD is in good position. Moderate coronary artery calcifications. Dilated supra hepatic IVC suggestive of dysfunction of the right cardiac cavities. Cirrhotic liver. Splenomegaly. Moderate ascites. Moderate anasarca/3rd spacing. Small sliding hiatal hernia. Underdistended gallbladder containing sludge. Surgical changes of the distal colon. Diffuse thickening of the stomach suggestive of gastritis. Scattered calcified hepatic granulomas. Scattered calcified splenic granulomas. Stent is noted in the superior mesenteric artery. Grade 1 anterolisthesis of L4 on L5. Moderate diffuse spondylosis. Reading Location: [place] [id number] Chest X-Ray 05/24/25 22:39 IMPRESSION: AICD is in good position. Mild central pulmonary venous congestion, increased. Mild bilateral basilar atelectatic pulmonary changes, increased. Reading Location: [place] [id number]
--- NOTE | 2025-05-25 10:52 | CT_ITS ---
PROCEDURE: CHEST WITHOUT CONTRAST 05/25/2025 REASON FOR EXAM: RIGHT ANTERIOR CHEST WALL SIGNIFICANT DEFECT TECHNIQUE: Chest CT without contrast. Coronal and Sagittal reconstruction series were provided. One or more dose reduction techniques were used (e.g., Automated exposure control, adjustment of the mA and/or kV according to patient size, use of iterative reconstruction technique RADIATION DOSE SUMMARY: CTDlvol: 16.4 mGy DLP: 676.09 mGycm COMPARISON: None FINDINGS: Hardware: A left-sided dual-chamber pacemaker is seen. EKG electrodes are seen. Pectus excavatum deformity. Lymph nodes: No suspicious lymphadenopathy is seen. Heart and Vasculature: Status post midline sternotomy. Prior mitral valve and aortic valve replacement. 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 Coronary Artery Calcifications: Present Lungs and Airways: Small right pleural effusion with right basilar infiltration and/or atelectasis. Minimal left pleural effusion. Upper Abdomen: There is evidence of perihepatic and perisplenic fluid. Bones: Increased kyphosis. Multilevel degenerative changes. There appears to be resection of the anterior aspect of the right mid rib most likely corresponding to the defect felt physically. CT/Chest without Contrast IMPRESSION: Coronary artery calcification (CAC) is is present The anterior wall defect most likely represents resection of the anterior aspec t of the mid right medial rib. Bilateral effusions right greater than left with the right basilar infiltration and/or atelectasis. Dilatation of the root of the ascending thoracic aorta with a transverse dimens ion of 45.3 mm. Reading Location: [facility]
[2025-05-25 11:51] LABS: Albumin, Serum 3.3 g/dL (3.4-4.8)
[2025-05-25] MEDS: Albumin Human 25% (100 mL) 25 GM/100 ML BAG IV ×2 (13:59→15:38)
[2025-05-25] MEDS: Mineral Oil/Petrolatum Cr 1.75oz Bottle 1 APPLIC TOPICAL ×2 (13:59→22:31)
--- NOTE | 2025-05-25 14:14 | WOUNDNOTE ---
wound photo: right kaur
--- NOTE | 2025-05-25 14:15 | WOUNDNOTE ---
wound photo: right lateral heel
[2025-05-25 20:27] LABS: Anion Gap 19 (5-15); BUN 111 mg/dL (4-19); BUN/Creat Ratio 26.4 RATIO (10-20); Calcium,Total 9.2 mg/dL (7.6-11.0); Carbon Dioxide 19.3 mmol/L (21.0-32.0); Chloride 86 mmol/L (98-108); Estimated Creatinine Clearance 9.90 ml/min (50-250); Glucose 174 mg/dL (70-99); Potassium 5.2 mmol/L (3.3-5.1)
[2025-05-26] VITALS (7 sets, daily range): BP systolic 133–145; BP diastolic 66–79; PULSE 85–100; RESP 18–20; TEMP 36.2–36.6; O2SAT 97–100; BMI 27.2
[2025-05-26] MEDS: Heparin Injection (Vial) 5,000 UNIT/ML VIAL 5000 UNIT SC ×3 (05:35→21:57)
[2025-05-26 05:47] LABS: Hematocrit 33.1 % (37-47); Hemoglobin 10.8 g/dL (12.0-15.0); Immature Granulocytes Count 0.150 X10^3/uL (0.0-0.0); Mean Corp Hgb Conc 32.6 g/dL (32-36); Mean Corpuscular Volume 91.7 fL (81-99); Mean Platelet Vol. 9.5 fl (6.2-12.0); NRBC Flagged by Analyzer 0 % (0-5); POSITIVE MORPHOLOGY YES; Platelet Count 108 K/mm3 (150-450); RBC Distribution Width CV 19.9 % (11.6-14.6); RBC Distribution Width SD 67.5 fl (35.1-43.9); Red Blood Count 3.61 M/mm3 (4.2-5.4); White Blood Count 9.0 K/mm3 (4.4-11.0)
[2025-05-26 05:54] LABS: Differential Indicated SCAN CRITERIA MET
[2025-05-26 06:47] LABS: Anion Gap 19 (5-15); BUN 112 mg/dL (4-19); BUN/Creat Ratio 27.1 RATIO (10-20); Calcium,Total 9.2 mg/dL (7.6-11.0); Carbon Dioxide 19.3 mmol/L (21.0-32.0); Chloride 88 mmol/L (98-108); Estimated Creatinine Clearance 10.32 ml/min (50-250); Glucose 109 mg/dL (70-99); Potassium 5.1 mmol/L (3.3-5.1)
[2025-05-26] MEDS: Aspirin E.C. 81 MG Tablet PO (09:08)
[2025-05-26] MEDS: Metoprolol(XL)Succ 50 MG Tablet PO ×2 (09:08→21:58)
[2025-05-26] MEDS: Mineral Oil/Petrolatum Cr 1.75oz Bottle 1 APPLIC TOPICAL ×2 (09:09→21:58)
--- NOTE | 2025-05-26 17:26 | PCM.PN.HOSP ---
Reason for Visit Chief Complaint: weakness Subjective Subjective Feeling slightly better, feels like abdomen slightly less full, still short of breath but possibly a little bit better Objective Data Objective Data Vital Signs: Vital Signs Temp Pulse Resp BP Pulse Ox O2 Del Method 97.3 F L 85 18 145/74 H 100 Room Air 05/26/25 15:15 05/26/25 15:15 05/26/25 15:15 05/26/25 15:15 05/26/25 15:15 05/26/25 15:15 Oxygen Delivery Method Room Air Weight: 69.7 kg Body Mass Index (BMI) 27.2 Intake & Output: Intake and Output for Last 24 Hours 05/24/25 05/25/25 05/26/25 23:59 23:59 23:59 Intake Total 280 / 280 3228.55 / 3228.55 Output Total 100 / 100 Balance 280 / 280 3228.55 / 3228.55 -100 / -100 Lab / Micro Data 05/26/25 05:24 05/26/25 05:24 Labs: Laboratory Results - last 24 hr 05/25/25 19:27: Sodium 125 L, Potassium 5.2 H, Chloride 86 L, Carbon Dioxide 19.3 L, Anion Gap 19 H, BUN 111 H*, Creatinine 4.20 H, Estim Creat Clear Calc 9.90 L*, Est GFR (MDRD) Non-Af 10 L, BUN/Creatinine Ratio 26.4 H, Glucose 174 H, Calcium 9.2 05/26/25 05:24: WBC 9.0, RBC 3.61 L, Hgb 10.8 L, Hct 33.1 L, MCV 91.7, MCH 29.9, MCHC 32.6, RDW Std Deviation 67.5 H, RDW Coeff of Yonis 19.9 H, Plt Count 108 L, MPV 9.5, Immature Gran % (Auto) 1.700 H, Neut % (Auto) 70.2 H, Lymph % (Auto) 17.8 L, [place] % (Auto) 8.2, Eos % (Auto) 1.7, Baso % (Auto) 0.4, Absolute Neuts (auto) 6.3, Absolute Lymphs (auto) 1.59, Nucleated RBC % 0, Sodium 127 L, Potassium 5.1, Chloride 88 L, Carbon Dioxide 19.3 L, Anion Gap 19 H, BUN 112 H*, Creatinine 4.14 H, Estim Creat Clear Calc 10.32 L, Est GFR (MDRD) Non-Af 10 L, BUN/Creatinine Ratio 27.1 H, Glucose 109 H, Calcium 9.2 Micro: Microbiology 05/24/25 14:10 Stool Enteric Bacteriology - Final 05/25/25 00:22 Stool Clostridioides difficile (PCR) - Final Radiography Diagnostic Testing: Radiology Impression Venous Doppler Study 05/25/25 00:13 Interpretation Summary Deep veins of the lower extremities are bilaterally patent and compressible segmentally. There is no evidence of deep vein thrombosis on either side. Valvular competence appears intact within the proximal deep venous systems bilaterally. The great saphenous veins appear bilaterally patent and compressible segmentally. Pulsatile flow is noted in the deep venous system bilaterally, which may be indicative of elevated central venous pressure (i.e. congestive heart failure, pulmonary hypertension, etc.). Clinical correlation is advised. Ordering Physician: Yamileth Brock Referring Physician: Vincent Flores Chi Performed By: Margoth Reed, GABRIELLE, RVT Rhythm Strip Rhythm Strip: A-fib Rate: 90 Ectopy: None Physical Exam Narrative General: Alert, oriented HEENT: Atraumatic, normocephalic Eyes: Anicteric, normal conjunctiva, extraocular movements grossly intact Neck: Supple Respiratory: Some crackles at the bases, normal respiratory effort Cardiovascular: Regular rate GI: Distended, maybe slightly less so, no tenderness, rebound, guarding, rigidity Extremities: Trace lower extremity pitting edema Musculoskeletal: Moving all extremities, upper right anterior chest wall with softball sized defect with paroxysmal movement with inspiration exhalation and bulging when coughing Neuro: No overt focal neurological deficits Skin: Some chronic changes on lower extremities Psych: Cooperative Assessment & Plan Assessment/Plan (1) MONIQUE (acute kidney injury): PLAN: Plan #MONIQUE on CKD III with hyperkalemia - possibly due to dehydration, possibly because of ongoing diarrhea. progressive new weakness prompting presentation to the ER. Notable hyperkalemia, hyponatremia, hypochloremia. BUN 122, Cr 4.53. Anion gap 18. She is on 3 diuretics - these will be held. She will be given IV fluids with NS and recheck function in AM. ER has given calcium gluconate and insulin for hyperkalemia. Also will hold home potassium and aldactone. CT abdomen is pending. Check mag/phos, TSH. Abnormal LFTs also noted, recheck CMP in AM. Mildly decreased platelets - recheck H/H in AM. -05/25: Creatinine 4.53 on presentation and 4.35, given continued electrolyte abnormalities and gap did consult nephrology. IV albumin ordered. They noted the hyperkalemia, potassium improving, given Kayexalate. 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 Initial plan was for paracentesis today however patient has high risk of bleeding and did receive heparin, patient nontender, depending on clinical status may be able to hold heparin and have paracentesis on Wednesday if necessary, monitor over the weekend -05/26: Very slow downtrend but is downtrending, 4.53 on presentation and is down trended to 4.14, continue to hold diuretics and fluids all body reequilibrated's. Potassium 5.1 today, bicarb and gap about the same however suspect that this is due to persistently elevated BUN, suspect that this will improve as kidney function improves. Discussed with patient and that she is slowly improving so we will continue current management due to concerns of fluid would worsen respiratory status but diuretics would worsen kidney function. If no further trend of improvement can reevaluate #Hx diastolic CHF - stage III diastolic failure per last echo. -05/25: Daily weights and I's and O's, fluids on pause, given albumin, proceed cautiously -05/26: Patient is up 3.5 L from presentation, presently is vitally stable and saturating 100% on room air, very slow but consistent improvement in kidney function without decompensation respiratory status at this time will continue present management and monitoring volume status #Diarrhea - likely 2/2 abx use, last diarrhea this AM. some bloating. check stool for C diff. -05/25: Stool studies negative, continue supportive care, got short of breath with fluids may have been held, albumin given per nephro #RLE swelling - she stopped her doxy due to side effect of diarrhea. ongoing erythema, swelling, pain RLE. unclear if this is actually infectious or swelling and redness due to DVT. Obtain Venous duplex to r/o DVT. Recently drove to and from [place]. -05/25: Per verbal report patient with no MONIQUE, legs look similar to each other today, has some chronic heel problems but does not appear overly infected, will continue to monitor off antibiotics -05/26: Legs both look similar, venous duplexes resulted and showed no DVT but possibly some indication of elevated central venous pressure Chronic medical problems and/or problems not being actively addressed during today's encounter: #Hx Afib, Sick sinus syndrome - with pacemaker, watchmen device. Not on oral anticoagulation. continue metoprolol, aspirin. EKG with paced rhythm, rate stable at this time. # Hx t2dm - not on home regimen, can add SSI if necessary, carb controlled diet. #Hypothyroidism - levothyroxine. -TSH very slightly elevated, suspect this may be due to acute illness, outpatient follow-up with repeat labs #Chronic iron def anemia - appears to be at baseline, continue home iron supplementation # Chest wall defect -05/25: Patient with softball sized defect in right anterior chest wall. Appears very prominent, patient has been report they think something has been there for a while it is just more noticeable now. CT chest obtained as it appeared almost flail chest in nature and CT said anterior wall defect most likely represents resection of the anterior aspect of the mid right medial rib. When comparing directly to a previous CT of the chest does seem similar to previous. Suspect patient's current acute illness may have made this more obvious #DVT ppx: Heparin subcu Radha Heller MD Time spent in the patient's overall evaluation, decision-making process, review of diagnostic data, adjustment of management, discussion with other providers, nursing and ancillary staff involved in patient's care documentation, 35 Minutes Charges/Coding Visit Charges Inpatient E&M: 65640 Subs Hosp L2
--- NOTE | 2025-05-26 21:37 | PN.RENAL_ITS ---
Subjective Subjective feels ok breathing ok making some urine Objective Data Objective Data Vital Signs: Vital Signs Temp Pulse Resp BP Pulse Ox O2 Del Method 97.3 F L 85 18 145/74 H 100 Room Air 05/26/25 15:15 05/26/25 15:15 05/26/25 15:15 05/26/25 15:15 05/26/25 15:15 05/26/25 15:15 Oxygen Delivery Method Room Air Weight: 69.7 kg Body Mass Index (BMI) 27.2 Intake & Output: Intake and Output for Last 24 Hours 05/24/25 05/25/25 05/26/25 23:59 23:59 23:59 Intake Total 280 / 280 3228.55 / 3228.55 360 / 360 Output Total 100 / 100 Balance 280 / 280 3228.55 / 3228.55 260 / 260 Lab / Micro Data 05/26/25 05:24 05/26/25 05:24 Labs: Laboratory Results - last 24 hr 05/26/25 05:24: WBC 9.0, RBC 3.61 L, Hgb 10.8 L, Hct 33.1 L, MCV 91.7, MCH 29.9, MCHC 32.6, RDW Std Deviation 67.5 H, RDW Coeff of Yonis 19.9 H, Plt Count 108 L, MPV 9.5, Immature Gran % (Auto) 1.700 H, Neut % (Auto) 70.2 H, Lymph % (Auto) 17.8 L, [place] % (Auto) 8.2, Eos % (Auto) 1.7, Baso % (Auto) 0.4, Absolute Neuts (auto) 6.3, Absolute Lymphs (auto) 1.59, Nucleated RBC % 0, Sodium 127 L, Potassium 5.1, Chloride 88 L, Carbon Dioxide 19.3 L, Anion Gap 19 H, BUN 112 H*, Creatinine 4.14 H, Estim Creat Clear Calc 10.32 L, Est GFR (MDRD) Non-Af 10 L, B UN/Creatinine Ratio 27.1 H, Glucose 109 H, Calcium 9.2 Micro: Microbiology 05/24/25 14:10 Stool Enteric Bacteriology - Final 05/25/25 00:22 Stool Clostridioides difficile (PCR) - Final Rhythm Strip Rhythm Strip: A-fib Rate: 90 Ectopy: None Physical Exam Narrative Alert awake oriented x 3 no obvious distress no pallor no icterus no JVD s1s2 no murmurs lungs clear abdomen soft no organomegaly Assessment & Plan Assessment/Plan (1) Acute renal failure: PLAN: CKD stage IIIb, baseline creatinine between 1.8-2.0. Last month creatinine was at baseline. Apparently had severe diarrhea over the last few days. Clinic abdomen appears more distended, CT abdomen with ascites. Urine sodium less than 20, urine analysis not impressive. Cirrhotic changes. -scr remains largely the same at 4.14mg/dL -bp ok Mild hyponatremia -slightly improved to 127mmol/L Hyperkalemia. -K better at 5.1mmol/L with medical therapy continue with supportive care avoid hypotension/nephrotoxins bmp in am
[2025-05-27 02:19] VITALS: BMI 26.9
[2025-05-27] MEDS: Heparin Injection (Vial) 5,000 UNIT/ML VIAL 5000 UNIT SC ×2 (05:02→14:30)
[2025-05-27 05:45] VITALS: BP 139/64; PULSE 82; RESP 16; TEMP 36.5; O2SAT 98
[2025-05-27 06:27] LABS: Hematocrit 34.1 % (37-47); Hemoglobin 11.3 g/dL (12.0-15.0); Immature Granulocytes Count 0.140 X10^3/uL (0.0-0.0); Mean Corp Hgb Conc 33.1 g/dL (32-36); Mean Corpuscular Volume 91.2 fL (81-99); Mean Platelet Vol. 11.0 fl (6.2-12.0); NRBC Flagged by Analyzer 0 % (0-5); POSITIVE MORPHOLOGY YES; Platelet Count 131 K/mm3 (150-450); RBC Distribution Width CV 20.0 % (11.6-14.6); RBC Distribution Width SD 66.9 fl (35.1-43.9); Red Blood Count 3.74 M/mm3 (4.2-5.4); White Blood Count 9.3 K/mm3 (4.4-11.0)
[2025-05-27 06:31] LABS: Differential Indicated SCAN CRITERIA MET
[2025-05-27 07:01] LABS: Anisocytosis 1+
[2025-05-27 07:24] LABS: AST(SGOT) 36 U/L (<=31); Alanine Aminotransfer ALT/SGPT 18 U/L (<=34); Albumin, Serum 3.6 g/dL (3.4-4.8); Alkaline Phosphatase 112 U/L (35-104); Anion Gap 20 (5-15); BUN 114 mg/dL (4-19); BUN/Creat Ratio 27.5 RATIO (10-20); Calcium,Total 9.3 mg/dL (7.6-11.0); Carbon Dioxide 18.3 mmol/L (21.0-32.0); Chloride 88 mmol/L (98-108); Estimated Creatinine Clearance 10.26 ml/min (50-250); Globulin 3.1 g/dL (2.2-4.2); Glucose 134 mg/dL (70-99); Potassium 5.0 mmol/L (3.3-5.1)
[2025-05-27] MEDS: 0.9% Saline Lock 10 ML Syringe IV ×2 (08:30→14:56)
[2025-05-27] MEDS: Albumin Human 25% (100 mL) 25 GM/100 ML BAG IV (08:30)
[2025-05-27] MEDS: Mineral Oil/Petrolatum Cr 1.75oz Bottle 1 APPLIC TOPICAL ×2 (08:31→22:05)
[2025-05-27] MEDS: Aspirin E.C. 81 MG Tablet PO (08:31)
[2025-05-27 08:32] VITALS: BP 116/60; PULSE 84
[2025-05-27] MEDS: Metoprolol(XL)Succ 50 MG Tablet PO ×2 (08:32→22:05)
[2025-05-27 08:36] VITALS: BP 116/60; PULSE 84; RESP 16; TEMP 36.2; O2SAT 100
--- NOTE | 2025-05-27 14:32 | PCM.PN.HOSP ---
Reason for Visit Chief Complaint: weakness Subjective Subjective Had a difficult time getting comfortable last night so she was not able to sleep well, still having some fullness in her abdomen and reports she has early satiety, still some difficulty with breathing similar to yesterday Objective Data Objective Data Vital Signs: Vital Signs Temp Pulse Resp BP Pulse Ox O2 Del Method 97.2 F L 84 16 116/60 100 Room Air 05/27/25 08:36 05/27/25 08:36 05/27/25 08:36 05/27/25 08:36 05/27/25 08:36 05/27/25 08:36 Oxygen Delivery Method Room Air Weight: 68.9 kg Body Mass Index (BMI) 26.9 Intake & Output: Intake and Output for Last 24 Hours 05/25/25 05/26/25 05/27/25 23:59 23:59 23:59 Intake Total 3228.55 / 3228.55 360 / 360 580 / 580 Output Total 100 / 100 Balance 3228.55 / 3228.55 260 / 260 580 / 580 Lab / Micro Data 05/27/25 05:18 05/27/25 05:18 Labs: Laboratory Results - last 24 hr 05/27/25 05:18: WBC 9.3, RBC 3.74 L, Hgb 11.3 L, Hct 34.1 L, MCV 91.2, MCH 30.2, MCHC 33.1, RDW Std Deviation 66.9 H, RDW Coeff of Yonis 20.0 H, Plt Count 131 L, MPV 11.0, Immature Gran % (Auto) 1.500 H, Neut % (Auto) 69.0, Lymph % (Auto) 18.6 L, [place] % (Auto) 8.9, Eos % (Auto) 1.4, Baso % (Auto) 0.6, Absolute Neuts (auto) 6.4, Absolute Lymphs (auto) 1.73, Nucleated RBC % 0, Anisocytosis 1+, Sodium 127 L, Potassium 5.0, Chloride 88 L, Carbon Dioxide 18.3 L, Anion Gap 20 H, BUN 114 H*, Creatinine 4.14 H, Estim Creat Clear Calc 10.26 L, Est GFR (MDRD) Non-Af 10 L, BUN/Creatinine Ratio 27.5 H, Glucose 134 H, Calcium 9.3, Total Bilirubin 1.19, AST 36 H, ALT 18, Alkaline Phosphatase 112 H, Total Protein 6.7, Albumin 3.6, Globulin 3.1, Albumin/Globulin Ratio 1.2 Micro: Microbiology 05/24/25 14:10 Stool Enteric Bacteriology - Final 05/25/25 00:22 Stool Clostridioides difficile (PCR) - Final Rhythm Strip Rhythm Strip: A-fib Rate: 90 Ectopy: None Physical Exam Narrative General: Alert, oriented HEENT: Atraumatic, normocephalic Eyes: Anicteric, normal conjunctiva, extraocular movements grossly intact Neck: Supple Respiratory: Some crackles at the bases, similar to yesterday, normal respiratory effort Cardiovascular: Regular rate and rhythm GI: Distended, no tenderness, rebound, guarding, rigidity Extremities: Trace lower extremity pitting edema Musculoskeletal: Moving all extremities, upper right anterior chest wall with softball sized defect with paroxysmal movement with inspiration exhalation, unchanged Neuro: No overt focal neurological deficits Skin: Some chronic changes on lower extremities Psych: Cooperative Assessment & Plan Assessment/Plan (1) MONIQUE (acute kidney injury): PLAN: Plan #MONIQUE on CKD III with hyperkalemia - possibly due to dehydration, possibly because of ongoing diarrhea. progressive new weakness prompting presentation to the ER. Notable hyperkalemia, hyponatremia, hypochloremia. BUN 122, Cr 4.53. Anion gap 18. She is on 3 diuretics - these will be held. She will be given IV fluids with NS and recheck function in AM. ER has given calcium gluconate and insulin for hyperkalemia. Also will hold home potassium and aldactone. CT abdomen is pending. Check mag/phos, TSH. Abnormal LFTs also noted, recheck CMP in AM. Mildly decreased platelets - recheck H/H in AM. -05/25: Creatinine 4.53 on presentation and 4.35, given continued electrolyte abnormalities and gap did consult nephrology. IV albumin ordered. They noted the hyperkalemia, potassium improving, given Kayexalate. 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 Initial plan was for paracentesis today however patient has high risk of bleeding and did receive heparin, patient nontender, depending on clinical status may be able to hold heparin and have paracentesis on Wednesday if necessary, monitor over the weekend -05/26: Very slow downtrend but is downtrending, 4.53 on presentation and is down trended to 4.14, continue to hold diuretics and fluids all body reequilibrated's. Potassium 5.1 today, bicarb and gap about the same however suspect that this is due to persistently elevated BUN, suspect that this will improve as kidney function improves. Discussed with patient and that she is slowly improving so we will continue current management due to concerns of fluid would worsen respiratory status but diuretics would worsen kidney function. If no further trend of improvement can reevaluate -05/27: Kidney function virtually the same today, will give another dose of albumin as per nephro's previous recommendations, continue to hold nephrotoxic agents and diuretics, diarrhea is resolved. Nephro following. Had not seemed that patient was retaining as she reported good output, postvoid difficult to assess given level of ascites. Difficult obtaining I's and O's as minimal output reported but per patient and she does have good output. Will attempt to track I's and O's # Ascites -05/27: Seen on initial CT, initially was going to do paracentesis Wednesday however patient with high has blood score and had just received heparin, will hold heparin and order paracentesis for the a.m. #Hx diastolic CHF - stage III diastolic failure per last echo. -05/25: Daily weights and I's and O's, fluids on pause, given albumin, proceed cautiously -05/26: Patient is up 3.5 L from presentation, presently is vitally stable and saturating 100% on room air, very slow but consistent improvement in kidney function without decompensation respiratory status at this time will continue present management and monitoring volume status -05/27: Weight slightly down from yesterday, kidney function virtually the same, giving another dose of albumin #Diarrhea - likely 2/2 abx use, last diarrhea this AM. some bloating. check stool for C diff. -05/25: Stool studies negative, continue supportive care, got short of breath with fluids may have been held, albumin given per nephro -05/27: Still reporting no further diarrhea #RLE swelling - she stopped her doxy due to side effect of diarrhea. ongoing erythema, swelling, pain RLE. unclear if this is actually infectious or swelling and redness due to DVT. Obtain Venous duplex to r/o DVT. Recently drove to and from [place]. -05/25: Per verbal report patient with no MONIQUE, legs look similar to each other today, has some chronic heel problems but does not appear overly infected, will continue to monitor off antibiotics -05/26: Legs both look similar, venous duplexes resulted and showed no DVT but possibly some indication of elevated central venous pressure -05/27: Again both lower extremities with slight edema but appear similar, wound nurse seeing patient for chronic right heel wound, does not seem overtly infected at this time Chronic medical problems and/or problems not being actively addressed during today's encounter: #Hx Afib, Sick sinus syndrome - with pacemaker, watchmen device. Not on oral anticoagulation. continue metoprolol, aspirin. EKG with paced rhythm, rate stable at this time. # Hx t2dm - not on home regimen, can add SSI if necessary, carb controlled diet. #Hypothyroidism - levothyroxine. -TSH very slightly elevated, suspect this may be due to acute illness, outpatient follow-up with repeat labs #Chronic iron def anemia - appears to be at baseline, continue home iron supplementation # Chest wall defect -05/25: Patient with softball sized defect in right anterior chest wall. Appears very prominent, patient has been report they think something has been there for a while it is just more noticeable now. CT chest obtained as it appeared almost flail chest in nature and CT said anterior wall defect most likely represents resection of the anterior aspect of the mid right medial rib. When comparing directly to a previous CT of the chest does seem similar to previous. Suspect patient's current acute illness may have made this more obvious #DVT ppx: Heparin subcu Radha Heller MD Time spent in the patient's overall evaluation, decision-making process, review of diagnostic data, adjustment of management, discussion with other providers, nursing and ancillary staff involved in patient's care documentation, 36 Minutes Charges/Coding Visit Charges Inpatient E&M: 86262 Subs Hosp L2
[2025-05-27 15:01] VITALS: BP 140/61; PULSE 75; RESP 16; TEMP 36.4; O2SAT 100
[2025-05-27 21:00] VITALS: BP 147/63; PULSE 90; RESP 18; TEMP 36.6; O2SAT 98
[2025-05-27 22:05] VITALS: BP 147/63; PULSE 90
[2025-05-27] MEDS: MELATONIN 10 MG TABLET PO (22:06)
[2025-05-28] VITALS (12 sets, daily range): BP systolic 124–153; BP diastolic 41–75; PULSE 73–91; RESP 12–28; TEMP 36.2–38.2; O2SAT 93–99; BMI 27.4; BMI 28.9
[2025-05-28 03:52] LABS: Hematocrit 34.6 % (37-47); Hemoglobin 11.5 g/dL (12.0-15.0); Immature Granulocytes Count 0.160 X10^3/uL (0.0-0.0); Mean Corp Hgb Conc 33.2 g/dL (32-36); Mean Corpuscular Volume 91.8 fL (81-99); Mean Platelet Vol. 9.6 fl (6.2-12.0); NRBC Flagged by Analyzer 0.2 % (0-5); POSITIVE MORPHOLOGY YES; Platelet Count 116 K/mm3 (150-450); RBC Distribution Width CV 20.0 % (11.6-14.6); RBC Distribution Width SD 66.9 fl (35.1-43.9); Red Blood Count 3.77 M/mm3 (4.2-5.4); White Blood Count 9.9 K/mm3 (4.4-11.0)
[2025-05-28 04:02] LABS: Differential Indicated SCAN CRITERIA MET
[2025-05-28 04:35] LABS: Anisocytosis 1+
[2025-05-28 04:59] LABS: Anion Gap 19 (5-15); BUN 119 mg/dL (4-19); BUN/Creat Ratio 28.9 RATIO (10-20); Calcium,Total 9.3 mg/dL (7.6-11.0); Carbon Dioxide 19.5 mmol/L (21.0-32.0); Chloride 89 mmol/L (98-108); Estimated Creatinine Clearance 10.31 ml/min (50-250); Glucose 121 mg/dL (70-99); Potassium 4.5 mmol/L (3.3-5.1)
--- NOTE | 2025-05-28 08:00 | US_ITS ---
PROCEDURE: PARACENTESIS WITH US 05/28/2025 REASON FOR EXAM: ABD ASCITES NEW ONSET TECHNIQUE: PARACENTESIS WITH US. The procedure as well as the benefits and possible complications including infection and bleeding were explained to the patient. Informed consent was obtained. The overlying skin was prepped and draped in the usual sterile fashion. Following local anesthetic application and under direct sonographic guidance, a 5 Thai catheter was placed into the right lower quadrant. 2650 mL of bloody fluid was aspirated. A sample was sent to the laboratory. COMPARISON: None FINDINGS: Internal drainage of 2650 mL of blood-tinged fluid. US/Paracentesis with US IMPRESSION: Successful paracentesis with removal of 2650 mL of blood-tinged fluid. Reading Location: [place] [address]
[2025-05-28] MEDS: Metoprolol(XL)Succ 50 MG Tablet PO ×2 (08:49→21:33)
--- NOTE | 2025-05-28 10:23 | PCM.PN.HOSP ---
Reason for Visit Chief Complaint: weakness Subjective Subjective Patient is a 79-year-old lady admitted with progressive generalized weakness and increasing abdominal girth. Patient was found to have acute kidney injury with hyperkalemia superimposed on chronic kidney disease stage III admitted to a monitored bed for subsequent management Objective Data Objective Data Vital Signs: Vital Signs Temp Pulse Resp BP Pulse Ox O2 Del Method 97.3 F L 84 19 H 126/53 H 96 Room Air 05/28/25 08:50 05/28/25 08:50 05/28/25 08:50 05/28/25 08:50 05/28/25 08:50 05/28/25 08:50 Oxygen Delivery Method Room Air Weight: 74 kg Body Mass Index (BMI) 28.9 Intake & Output: Intake and Output for Last 24 Hours 05/26/25 05/27/25 05/28/25 23:59 23:59 23:59 Intake Total 360 / 360 1020 / 1020 Output Total 100 / 100 Balance 260 / 260 1020 / 1020 Lab / Micro Data 05/28/25 03:38 05/28/25 03:38 Labs: Laboratory Results - last 24 hr 05/28/25 03:38: WBC 9.9, RBC 3.77 L, Hgb 11.5 L, Hct 34.6 L, MCV 91.8, MCH 30.5, MCHC 33.2, RDW Std Deviation 66.9 H, RDW Coeff of Yonis 20.0 H, Plt Count 116 L, MPV 9.6, Immature Gran % (Auto) 1.600 H, Neut % (Auto) 71.2 H, Lymph % (Auto) 16.9 L, [place] % (Auto) 7.9, Eos % (Auto) 1.7, Baso % (Auto) 0.7, Absolute Neuts (auto) 7.0, Absolute Lymphs (auto) 1.67, Nucleated RBC % 0.2, Anisocytosis 1+, Sodium 127 L, Potassium 4.5, Chloride 89 L, Carbon Dioxide 19.5 L, Anion Gap 19 H, BUN 119 H*, Creatinine 4.12 H, Estim Creat Clear Calc 10.31 L, Est GFR (MDRD) Non-Af 10 L, BUN/Creatinine Ratio 28.9 H, Glucose 121 H, Calcium 9.3 Micro: Microbiology 05/24/25 14:10 Stool Enteric Bacteriology - Final 05/25/25 00:22 Stool Clostridioides difficile (PCR) - Final Rhythm Strip Rhythm Strip: A-fib Rate: 90 Ectopy: None Physical Exam Narrative GENERAL: Patient appears ill looking HEENT: Atraumatic; normocephalic EYES; Anicteric, Normal Conjunctiva NECK; supple, normal thyroid, RESPIRATORY: Diminished to auscultation CARDIOVASCULAR: Regular S1 S2, GI: Abdomen is distended with shifting dullness : No Renal angle tenderness; EXTREMITIES: No edema, no clubbing, MUSCULOSKELETAL: no muscle wasting NEURO: Awake; no lateralizing signs. SKIN: No Rash PSYCH; Flat affect Assessment & Plan Assessment/Plan (1) MONIQUE (acute kidney injury): PLAN: Plan Patient is a 79-year-old lady admitted with progressive generalized weakness and increasing abdominal girth. Patient was found to have acute kidney injury with hyperkalemia superimposed on chronic kidney disease stage III admitted to a monitored bed for subsequent management 1. Acute kidney injury superimposed on chronic kidney disease stage III – This was thought to be secondary to severe dehydration from ongoing diarrhea. Patient was on diuretic therapy with limited and as well as Aldactone held on admission rehydrated with IV fluids with consultation placed to nephrology with daily monitoring of electrolytes ordered 2. Hyperkalemia – Secondary to MONIQUE as well as use of potassium sparing diuretic therapy held on admission patient potassium has since normalized 3. Hyponatremia – Secondary to hypovolemic hyponatremia as well as use of diuretic therapy patient being rehydrated with her diuretic therapy held monitoring with daily BMP 4. Metabolic acidosis – Secondary to patient MONIQUE plan is to treat underlying etiology 5. Newly diagnosed ascites – Plan is for patient to undergo therapeutic and diagnostic paracentesis 6. Chronic congestive heart failure with preserved ejection fraction – Currently compensated patient diuretic therapy held given above reasons 7. Diarrhea – Suspected to be secondary to viral gastroenteritis stool studies came back negative 8. Paroxysmal atrial fibrillation – Rate controlled. Patient has a watchman's procedure and is not on systemic anticoagulation 9. Dyslipidemia –Patient is on statin therapy, continued at home dose 10. Hypothyroidism – Patient is on levothyroxine home dose continued 11. GERD – Patient is on PPI 12. Anemia – Secondary to chronic disorder monitoring H&H and transfuse if patient becomes symptomatic or hemoglobin falls below 7 13. Hypertension – Blood pressure controlled, home medications continued with dose adjustment as needed 14. DVT prophylaxis – Subcu heparin Time spent in the patient's overall evaluation, decision-making process, review of diagnostic data, adjustment of management, discussion with other providers, nursing and ancillary staff involved in patient's care documentation, 50 Minutes Charges/Coding Visit Charges Inpatient E&M: 27027 Subs Hosp L3
--- NOTE | 2025-05-28 11:07 | PCM.PN.REN ---
Subjective Subjective Abdominal distention. She says she is making urine. Creatinine about the same. Feels weak Objective Data Objective Data Vital Signs: Vital Signs Temp Pulse Resp BP Pulse Ox O2 Del Method 97.3 F L 84 19 H 126/53 H 96 Room Air 05/28/25 08:50 05/28/25 08:50 05/28/25 08:50 05/28/25 08:50 05/28/25 08:50 05/28/25 08:50 Oxygen Delivery Method Room Air Weight: 74 kg Body Mass Index (BMI) 28.9 Intake & Output: Intake and Output for Last 24 Hours 05/26/25 05/27/25 05/28/25 23:59 23:59 23:59 Intake Total 360 / 360 1020 / 1020 Output Total 100 / 100 Balance 260 / 260 1020 / 1020 Lab / Micro Data 05/28/25 03:38 05/28/25 03:38 Labs: Laboratory Results - last 24 hr 05/28/25 03:38: WBC 9.9, RBC 3.77 L, Hgb 11.5 L, Hct 34.6 L, MCV 91.8, MCH 30.5, MCHC 33.2, RDW Std Deviation 66.9 H, RDW Coeff of Yonis 20.0 H, Plt Count 116 L, MPV 9.6, Immature Gran % (Auto) 1.600 H, Neut % (Auto) 71.2 H, Lymph % (Auto) 16.9 L, [place] % (Auto) 7.9, Eos % (Auto) 1.7, Baso % (Auto) 0.7, Absolute Neuts (auto) 7.0, Absolute Lymphs (auto) 1.67, Nucleated RBC % 0.2, Anisocytosis 1+, Sodium 127 L, Potassium 4.5, Chloride 89 L, Carbon Dioxide 19.5 L, Anion Gap 19 H, BUN 119 H*, Creatinine 4.12 H, Estim Creat Clear Calc 10.31 L, Est GFR (MDRD) Non-Af 10 L, BUN/Creatinine Ratio 28.9 H, Glucose 121 H, Calcium 9.3 Micro: Microbiology 05/24/25 14:10 Stool Enteric Bacteriology - Final 05/25/25 00:22 Stool Clostridioides difficile (PCR) - Final Rhythm Strip Rhythm Strip: A-fib Rate: 90 Ectopy: None Physical Exam Narrative Alert awake oriented x 3 no obvious distress no pallor no icterus no JVD s1s2 no murmurs lungs clear abdomen distended Assessment & Plan Assessment/Plan (1) Acute renal failure: PLAN: CKD stage IIIb/IV. Baseline creatinine around 1.8-2.0. Her creatinine was close to baseline in April. Presented with diarrhea which started after taking antibiotic. Abdominal distention, CT imaging consistent with ascites. Newly diagnosed cirrhosis, presumably cardiac cirrhosis. History of congestive heart failure with diastolic dysfunction Urine sodium less than 20. She has received some IV fluids initially. We have also given her albumin. No significant improvement in renal function. Abdominal still distended, pending paracentesis. Okay to use albumin with paracentesis. Likely ATN in the setting of cardiorenal syndrome BUN remains more than 100, creatinine 4.1. No significant improvement. She is nonoliguric. Potassium is acceptable. Bicarbonate is better. May need renal replacement therapy temporarily. She has required dialysis temporarily in the past under similar circumstances. She will think about it and let me know.
[2025-05-28] MEDS: Lidocaine 2% (20 ml mdv) 20 ML Vial INFILT (12:11)
--- NOTE | 2025-05-28 12:13 | FLU_PTH ---
PATIENT: YAO SANCHES LOC: PCU U#:[id number] AGE/SX: 79/F ROOM: [facility] RE05/24/[address]: Dr. Ananda Mcintyre MD : 1945 BED: 1 DIS: 06/01/2025 SPEC #: [id number] RECD: 05/28/25 12:48 STATUS: JA REQ #: [id number] TOM: 05/28/25 12:[address]: Ananda Mcintyre DEPT: CYTOLOGY RECD BY: Marilia De Jesus ENTERED: 05/28/25 13:55 SP TYPE: Fluid OTHR DR: MD Dr. Yamileth Willett DO Dr. Paige Pierce, MD Dr. Tai Chi Kwok, MD Tissues: PARACENTESIS FLUID Procedures: Immunohistochemical Stains Special Stain Group II Surgery Specimen Level IV Cytospin Fluid IHC Stain ADDITIONAL HEADER OPERATION: Ultrasound guided paracentesis PRE-OP DIAGNOSIS: Abdominal ascites TISSUE SUBMITTED: A- Paracentesis fluid for cytology DIAGNOSIS CYTOLOGY A. Ascites, paracentesis (cytospin, cellblock): - Few atypical cells identified, favor reactive mesothelial cells - see note. - Many macrophages and red blood cells. - Recommend clinical correlation. Note: IHCs were performed on the cellblock. Calretinin stains scattered mesothelial cells. CK5/6 is negative. CD68 is positive for many histiocytes/macrophages. BerEp4 and MOC 31 are negative for epithelial cells. CYTOLOGY STUDY Slides are reviewed. All matched controls reacted appropriately. These tests were developed and their performance characteristics determined by [facility]. They may not have been cleared or approved by the U.S. Food and Drug Administration. The FDA has determined that such clearance or approval is not necessary. The above immunohistochemical markers and/or special stains have been reviewed by the Pathologist. CYTOLOGY GROSS A. Received is 80 ml of red-cloudy fluid labeled with the patient's name and and designated per the requisition as "Paracentesis fluid." Submitted for cytology and cell block preparation. Mr 05/28/2025 CPT: 12041,[id number]
[2025-05-28 12:53] LABS: Cytology, Body Fluid / CSF SEE PATHOLOGY REPORT
[2025-05-28 13:08] LABS: Auto B Fluid Analyzer BKGD Ct COUNTS W/IN LIMITS (W/IN LIMITS); Body Fluid Mononuclear WBC # 0.342 10^3/uL; Body Fluid Mononuclear WBC % 86.6 %; Body Fluid Polynuclear WBC # 0.053 10^3/uL; Body Fluid Polynuclear WBC % 13.4 %; Red Cell Count/Body Fluid 0.036 10^6/ul; White Blood Count/Body Fluid 0.395 10^3/uL
[2025-05-28 13:10] LABS: Appearance/Body Fluid SL CLDY; Color/Body Fluid RED
[2025-05-28 13:53] LABS: Neutrophil (Segs) 16 %; Other Cell Type/BF 4 %
[2025-05-28 13:54] LABS: Body Fluid QC Type(s) BF1Q; Source- Body Fluid ASCITES FLUID
[2025-05-28 14:03] LABS: Glucose, Body Fluid 146 mg/dL (Not Establ.)
[2025-05-28 15:00] LABS: Pathologist Comment/Body Fluid Reviewed
--- NOTE | 2025-05-28 17:50 | PCA ---
MEDICAL RECORDS REQUESTED FROM [facility]
[2025-05-28] MEDS: MELATONIN 10 MG TABLET PO (21:33)
[2025-05-28] MEDS: Mineral Oil/Petrolatum Cr 1.75oz Bottle 1 APPLIC TOPICAL (21:33)
[2025-05-29] VITALS (7 sets, daily range): BP systolic 134–145; BP diastolic 56–68; PULSE 81–87; RESP 14–22; TEMP 36.2–36.6; O2SAT 94–99; BMI 27.7
--- NOTE | 2025-05-29 02:37 | NURSING ---
Patient is refusing SCD's. She stated that they are hurting her heel. SCD's removed.
[2025-05-29 06:31] LABS: Hematocrit 33.4 % (37-47); Hemoglobin 11.2 g/dL (12.0-15.0); Immature Granulocytes Count 0.150 X10^3/uL (0.0-0.0); Mean Corp Hgb Conc 33.5 g/dL (32-36); Mean Corpuscular Volume 90.5 fL (81-99); Mean Platelet Vol. 10.6 fl (6.2-12.0); NRBC Flagged by Analyzer 0 % (0-5); POSITIVE MORPHOLOGY YES; Platelet Count 119 K/mm3 (150-450); RBC Distribution Width CV 19.9 % (11.6-14.6); RBC Distribution Width SD 65.6 fl (35.1-43.9); Red Blood Count 3.69 M/mm3 (4.2-5.4); White Blood Count 10.2 K/mm3 (4.4-11.0)
[2025-05-29 06:35] LABS: Differential Indicated SCAN CRITERIA MET
[2025-05-29 07:03] LABS: Anisocytosis RARE
[2025-05-29 07:25] LABS: Anion Gap 20 (5-15); BUN 119 mg/dL (4-19); BUN/Creat Ratio 27.1 RATIO (10-20); Calcium,Total 8.8 mg/dL (7.6-11.0); Carbon Dioxide 20.8 mmol/L (21.0-32.0); Chloride 89 mmol/L (98-108); Estimated Creatinine Clearance 9.82 ml/min (50-250); Glucose 116 mg/dL (70-99); Potassium 4.7 mmol/L (3.3-5.1)
--- NOTE | 2025-05-29 07:38 | PN.HOSP_ITS ---
Reason for Visit Chief Complaint: weakness Subjective Subjective Patient underwent ultrasound-guided paracentesis with 2650 of bloody fluid aspirated. Case was also discussed with nephrology the day prior plan is to initiate dialysis pending family approval. Did discuss patient worsening kidney function with the possibility of dialysis she is however currently not on board with the idea of having dialysis. Also brought up palliative care consultation and she was not interested in dialysis. Objective Data Objective Data Vital Signs: Vital Signs Temp Pulse Resp BP Pulse Ox O2 Del Method 97.4 F L 86 16 138/65 H 99 Room Air 05/29/25 02:30 05/29/25 02:30 05/29/25 02:30 05/29/25 02:30 05/29/25 02:30 05/29/25 02:30 Oxygen Delivery Method Room Air Weight: 71.1 kg Body Mass Index (BMI) 27.7 Intake & Output: Intake and Output for Last 24 Hours 05/27/25 05/28/25 05/29/25 23:59 23:59 23:59 Intake Total 1020 / 1020 500 / 500 Output Total 2650 / 2650 0 / 0 Balance 1020 / 1020 -2150 / -2150 0 / 0 Lab / Micro Data 05/29/25 05:58 05/29/25 05:58 Labs: Laboratory Results - last 24 hr 05/28/25 12:13: Fluid Source ASCITES FLUID, Fluid Color RED, Fluid Appearance SL CLDY, Fluid WBC 0.395, Fluid RBC 0.036, Fluid Tot Cell Count 0.432 H, Fld Polynuclear WBCs # 0.053, Fld Polynuclear WBCs % 13.4, Fluid Mononuclear WBCs 0.342, Fld Mononuclear WBCs % 86.6, Fluid Neutrophils 16, Fluid Lymphocytes 21, Fluid Monocytes 9, Fluid Macrophages 50, Fluid Other Cells 4, Fl Pathologist Comment Reviewed, Fluid Glucose 146, Fluid Total Protein 3.2, Fluid LDH 145, Fluid Comment 2 SEE COMMENT 05/29/25 05:58: WBC 10.2, RBC 3.69 L, Hgb 11.2 L, Hct 33.4 L, MCV 90.5, MCH 30.4, MCHC 33.5, RDW Std Deviation 65.6 H, RDW Coeff of Yonis 19.9 H, Plt Count 119 L, MPV 10.6, Immature Gran % (Auto) 1.500 H, Neut % (Auto) 72.9 H, Lymph % (Auto) 15.1 L, [place] % (Auto) 8.3, Eos % (Auto) 1.7, Baso % (Auto) 0.5, Absolute Neuts (auto) 7.4, Absolute Lymphs (auto) 1.54, Nucleated RBC % 0, Anisocytosis RARE, Sodium 129 L, Potassium 4.7, Chloride 89 L, Carbon Dioxide 20.8 L, Anion Gap 20 H, BUN 119 H*, Creatinine 4.39 H, Estim Creat Clear Calc 9.82 L*, Est GFR (MDRD) Non-Af 10 L, BUN/Creatinine Ratio 27.1 H, Glucose 116 H, Calcium 8.8 Micro: Microbiology 05/24/25 14:10 Stool Enteric Bacteriology - Final 05/25/25 00:22 Stool Clostridioides difficile (PCR) - Final Radiography Diagnostic Testing: Radiology Impression Paracentesis Ultrasound 05/28/25 08:00 IMPRESSION: Successful paracentesis with removal of 2650 mL of blood-tinged fluid. Reading Location: [place] [address] Rhythm Strip Rhythm Strip: A-fib Rate: 90 Ectopy: None Physical Exam Narrative GENERAL: Patient appears ill looking HEENT: Atraumatic; normocephalic EYES; Anicteric, Normal Conjunctiva NECK; supple, normal thyroid, RESPIRATORY: Diminished to auscultation CARDIOVASCULAR: Regular S1 S2, GI: Abdomen is distended with shifting dullness : No Renal angle tenderness; EXTREMITIES: No edema, no clubbing, MUSCULOSKELETAL: no muscle wasting NEURO: Awake; no lateralizing signs. SKIN: No Rash PSYCH; Flat affect Assessment & Plan Assessment/Plan (1) MONIQUE (acute kidney injury): PLAN: Plan Patient is a 79-year-old lady admitted with progressive generalized weakness and increasing abdominal girth. Patient was found to have acute kidney injury with hyperkalemia superimposed on chronic kidney disease stage III admitted to a monitored bed for subsequent management 1. Acute kidney injury superimposed on chronic kidney disease stage III – This was thought to be secondary to severe dehydration from ongoing diarrhea. Patient was on diuretic therapy with limited and as well as Aldactone held on admission rehydrated with IV fluids with consultation placed to nephrology with daily monitoring of electrolytes ordered – 05/29/2025; case was discussed with nephrology plan is to initiate dialysis pending family approval Did discuss patient worsening kidney function with the possibility of dialysis she is however currently not on board with the idea of having dialysis. Also brought up palliative care consultation and she was not interested in dialysis. 2. Hyperkalemia – Secondary to MONIQUE as well as use of potassium sparing diuretic therapy held on admission patient potassium has since normalized 3. Hyponatremia – Secondary to hypovolemic hyponatremia as well as use of diuretic therapy patient being rehydrated with her diuretic therapy held monitoring with daily BMP 4. Metabolic acidosis – Secondary to patient MONIQUE plan is to treat underlying etiology 5. Newly diagnosed ascites – Plan is for patient to undergo therapeutic and diagnostic paracentesis – 05/29/2025;Patient underwent ultrasound-guided paracentesis with 2650 of bloody fluid aspirated. 6. Chronic congestive heart failure with preserved ejection fraction – Currently compensated patient diuretic therapy held given above reasons 7. Diarrhea – Suspected to be secondary to viral gastroenteritis stool studies came back negative 8. Paroxysmal atrial fibrillation – Rate controlled. Patient has a watchman's procedure and is not on systemic anticoagulation 9. Dyslipidemia –Patient is on statin therapy, continued at home dose 10. Hypothyroidism – Patient is on levothyroxine home dose continued 11. GERD – Patient is on PPI 12. Anemia – Secondary to chronic disorder monitoring H&H and transfuse if patient becomes symptomatic or hemoglobin falls below 7 13. Hypertension – Blood pressure controlled, home medications continued with dose adjustment as needed 14. DVT prophylaxis – Subcu heparin Time spent in the patient's overall evaluation, decision-making process, review of diagnostic data, adjustment of management, discussion with other providers, nursing and ancillary staff involved in patient's care documentation, 40 Minutes Charges/Coding Visit Charges Inpatient E&M: 39813 Subs Hosp L2
[2025-05-29] MEDS: Mineral Oil/Petrolatum Cr 1.75oz Bottle 1 APPLIC TOPICAL ×2 (09:59→21:18)
[2025-05-29] MEDS: Aspirin E.C. 81 MG Tablet PO (09:59)
[2025-05-29] MEDS: Metoprolol(XL)Succ 50 MG Tablet PO ×2 (09:59→21:18)
--- NOTE | 2025-05-29 09:59 | NURSING ---
This nurse had an in depth conversation with the patient's regarding the safety measures. I instructed both the patient and to press the call light for assistance prior to getting up. The stated that he will be getting the patient up without staff being present and does not think it is necessary to have a staff member present. I reiterated the importance of waiting for assistance due to the patient having a fall prior to admission. The also refused at this time to allow the patient to use a walker to assist with ambulation stating, "she doesn't need that."
--- NOTE | 2025-05-29 12:00 | CASEMGMT ---
Addendum entered by Robles Mcgrath 05/29/25 14:30: 1:40 PM: Pt's has not arrived to [facility] yet. Pt states okay for DOUG MOSES to call him on the phone. Call placed to . Discussed OP HD. He also states he is hopeful pt will improve and not end up needing OP HD, but is aware she may need it @ discharge and is okay with referral being sent. Discussed OP HD centers and questions answered. states he prefers [facility]. He states he is able to transport pt to and from dialysis. Original Note: DOUG MOSES NOTE: Per Dr Mcgarry, pt will need set up for OP HD, stating she will get line catheter placed tomorrow and then get HD after placement. Per Dr Mcgarry, pt to then get 2nd HD treatment on Wednesday while @ [facility] & then pt can dc after that, if medically ready. DOUG MOSES to room. Pt sitting up in chair. Introduced self and role. Discussed OP HD. Pt states she is still hopeful that things will turn around with HD treatments she will be getting here so that she does not need it @ discharge, but she states she realizes that may not be the case and she is willing to do OP HD if needed. Inquired what OP HD center she wishes a referral to be sent to. She states she does not have a preference and would like DOUG MOSES to discuss this w/her , stating he is running errands and should be returning w/in the hour. Cesilia LINCOLN RN, CM
--- NOTE | 2025-05-29 12:00 | PCM.PN.REN ---
Subjective Subjective no new complaints BUN and Cr remain high Objective Data Objective Data Vital Signs: Vital Signs Temp Pulse Resp BP Pulse Ox O2 Del Method 97.2 F L 87 14 135/64 H 95 Room Air 05/29/25 08:30 05/29/25 09:59 05/29/25 08:30 05/29/25 08:30 05/29/25 08:30 05/29/25 10:00 Oxygen Delivery Method Room Air Weight: 71.1 kg Body Mass Index (BMI) 27.7 Intake & Output: Intake and Output for Last 24 Hours 05/27/25 05/28/25 05/29/25 23:59 23:59 23:59 Intake Total 1020 / 1020 500 / 500 Output Total 2650 / 2650 0 / 0 Balance 1020 / 1020 -2150 / -2150 0 / 0 Lab / Micro Data 05/29/25 05:58 05/29/25 05:58 Labs: Laboratory Results - last 24 hr 05/28/25 12:13: Fluid Source ASCITES FLUID, Fluid Color RED, Fluid Appearance SL CLDY, Fluid WBC 0.395, Fluid RBC 0.036, Fluid Tot Cell Count 0.432 H, Fld Polynuclear WBCs # 0.053, Fld Polynuclear WBCs % 13.4, Fluid Mononuclear WBCs 0.342, Fld Mononuclear WBCs % 86.6, Fluid Neutrophils 16, Fluid Lymphocytes 21, Fluid Monocytes 9, Fluid Macrophages 50, Fluid Other Cells 4, Fl Pathologist Comment Reviewed, Fluid Glucose 146, Fluid Total Protein 3.2, Fluid LDH 145, Fluid Comment 2 SEE COMMENT 05/29/25 05:58: WBC 10.2, RBC 3.69 L, Hgb 11.2 L, Hct 33.4 L, MCV 90.5, MCH 30.4, MCHC 33.5, RDW Std Deviation 65.6 H, RDW Coeff of Yonis 19.9 H, Plt Count 119 L, MPV 10.6, Immature Gran % (Auto) 1.500 H, Neut % (Auto) 72.9 H, Lymph % (Auto) 15.1 L, [place] % (Auto) 8.3, Eos % (Auto) 1.7, Baso % (Auto) 0.5, Absolute Neuts (auto) 7.4, Absolute Lymphs (auto) 1.54, Nucleated RBC % 0, Anisocytosis RARE, Sodium 129 L, Potassium 4.7, Chloride 89 L, Carbon Dioxide 20.8 L, Anion Gap 20 H, BUN 119 H*, Creatinine 4.39 H, Estim Creat Clear Calc 9.82 L*, Est GFR (MDRD) Non-Af 10 L, BUN/Creatinine Ratio 27.1 H, Glucose 116 H, Calcium 8.8 Micro: Microbiology 05/28/25 12:13 Fluid - Ascites Body Fluid Culture - Preliminary No growth-Final to follow 05/24/25 14:10 Stool Enteric Bacteriology - Final 05/25/25 00:22 Stool Clostridioides difficile (PCR) - Final Radiography Diagnostic Testing: Radiology Impression Paracentesis Ultrasound 05/28/25 08:00 IMPRESSION: Successful paracentesis with removal of 2650 mL of blood-tinged fluid. Reading Location: [place] [address] Rhythm Strip Rhythm Strip: A-fib Rate: 90 Ectopy: None Physical Exam Narrative Alert awake oriented x 3 no obvious distress no pallor no icterus no JVD s1s2 no murmurs lungs clear abdomen distended Assessment & Plan Assessment/Plan (1) Acute renal failure: PLAN: CKD stage IIIb/IV. Baseline creatinine around 1.8-2.0. Her creatinine was close to baseline in April. Presented with diarrhea which started after taking antibiotic. Abdominal distention, CT imaging consistent with ascites. Newly diagnosed cirrhosis, presumably cardiac cirrhosis. History of congestive heart failure with diastolic dysfunction Urine sodium less than 20. She has received some IV fluids initially. We have also given her albumin. No significant improvement in renal function. Abdominal still distended, pending paracentesis. Okay to use albumin with paracentesis. Likely ATN in the setting of cardiorenal syndrome BUN remains more than 100, creatinine 4.1. No significant improvement. She is nonoliguric. Potassium is acceptable. Bicarbonate is better. May need renal replacement therapy temporarily. She has required dialysis temporarily in the past under similar circumstances. She will think about it and let me know. 05/29/25. padmaja patient and . explained about persistent renal failure. agreeable for HD. padmaja Meza. potentially HD line tomorrow and HD after. will need placement in outpatient HD unit. duration of dialysis unclear. admit as MONIQUE in outpatient dialysis for now. dw hospitalist
--- NOTE | 2025-05-29 14:52 | CASEMGMT ---
See previous RN CM notes. This RN CM discussed time of day and schedule preferences with the pt's who states that they do not have a preference at this time. This junior copywriter sent a referral to Shonna Cruz via the [facility] at this time. Notified Shonna that the pt is scheduled for line placement/ access tomorrow and that the pt will tentatively start at the OP center on Wednesday, 06/04. CM to follow for Hep B results [facility] Notified the HD team Hep B is needed. CM to continue to follow.
--- NOTE | 2025-05-29 15:01 | WOUNDNOTE ---
wound photo: right lateral heel
--- NOTE | 2025-05-29 16:45 | NURSING ---
Nursing responded to the chair alarm sounding. Patient's was getting her up without the assistance of staff members. He again stated that she does not need to use a walker to assist with ambulation. This nurse advised the that he is to wait for nursing staff to arrive in the room to help with ambulating the patient.
[2025-05-29] MEDS: Senna/Docusate Sodium 1 Tablet 2 TABLET PO (16:50)
--- NOTE | 2025-05-29 18:16 | NURSING ---
Patient's continues to get her up without waiting for staff assistance.
[2025-05-29] MEDS: MELATONIN 10 MG TABLET PO (21:18)
[2025-05-30] VITALS (22 sets, daily range): BP systolic 90–142; BP diastolic 43–60; PULSE 62–91; RESP 14–22; TEMP 35.4–36.6; O2SAT 93–100; BMI 28.0; BMI 28.1
[2025-05-30 06:01] LABS: Hematocrit 33.6 % (37-47); Hemoglobin 11.4 g/dL (12.0-15.0); Immature Granulocytes Count 0.200 X10^3/uL (0.0-0.0); Mean Corp Hgb Conc 33.9 g/dL (32-36); Mean Corpuscular Volume 91.8 fL (81-99); Mean Platelet Vol. 10.1 fl (6.2-12.0); NRBC Flagged by Analyzer 0 % (0-5); Platelet Count 129 K/mm3 (150-450); RBC Distribution Width CV 19.9 % (11.6-14.6); RBC Distribution Width SD 64.8 fl (35.1-43.9); Red Blood Count 3.66 M/mm3 (4.2-5.4); White Blood Count 11.6 K/mm3 (4.4-11.0)
[2025-05-30 06:13] LABS: Albumin, Serum 3.5 g/dL (3.4-4.8)
[2025-05-30 06:30] LABS: Anion Gap 18 (5-15); BUN 122 mg/dL (4-19); BUN/Creat Ratio 28.4 RATIO (10-20); Calcium,Total 8.6 mg/dL (7.6-11.0); Carbon Dioxide 21.0 mmol/L (21.0-32.0); Chloride 89 mmol/L (98-108); Estimated Creatinine Clearance 10.11 ml/min (50-250); Glucose 134 mg/dL (70-99); Potassium 4.4 mmol/L (3.3-5.1)
--- NOTE | 2025-05-30 07:23 | PCM.PN.HOSP ---
Reason for Visit Chief Complaint: weakness Subjective Subjective Patient and agreed to proceed with dialysis after extensive discussion. Consult subsequently placed to general surgery for temporary dialysis catheter placement Objective Data Objective Data Vital Signs: Vital Signs Temp Pulse Resp BP Pulse Ox O2 Del Method 97.4 F L 74 22 H 142/60 H 94 Room Air 05/30/25 04:01 05/30/25 04:01 05/30/25 04:01 05/30/25 04:01 05/30/25 04:01 05/30/25 04:02 Oxygen Delivery Method Room Air Weight: 72 kg Body Mass Index (BMI) 28.0 Intake & Output: Intake and Output for Last 24 Hours 05/28/25 05/29/25 05/30/25 23:59 23:59 23:59 Intake Total 500 / 500 600 / 600 Output Total 2650 / 2650 0 / 0 Balance -2150 / -2150 600 / 600 Lab / Micro Data 05/30/25 05:12 05/30/25 05:12 Labs: Laboratory Results - last 24 hr 05/29/25 05:58: Sodium 129 L, Potassium 4.7, Chloride 89 L, Carbon Dioxide 20.8 L, Anion Gap 20 H, BUN 119 H*, Creatinine 4.39 H, Estim Creat Clear Calc 9.82 L*, Est GFR (MDRD) Non-Af 10 L, BUN/Creatinine Ratio 27.1 H, Glucose 116 H, Calcium 8.8 05/30/25 05:12: WBC 11.6 H, RBC 3.66 L, Hgb 11.4 L, Hct 33.6 L, MCV 91.8, MCH 31.1, MCHC 33.9, RDW Std Deviation 64.8 H, RDW Coeff of Yonis 19.9 H, Plt Count 129 L, MPV 10.1, Immature Gran % (Auto) 1.700 H, Neut % (Auto) 77.1 H, Lymph % (Auto) 13.1 L, [place] % (Auto) 6.6, Eos % (Auto) 1.1, Baso % (Auto) 0.4, Absolute Neuts (auto) 8.9 H, Absolute Lymphs (auto) 1.52, Nucleated RBC % 0, Sodium 128 L, Potassium 4.4, Chloride 89 L, Carbon Dioxide 21.0, Anion Gap 18 H, BUN 122 H*, Creatinine 4.29 H, Estim Creat Clear Calc 10.11 L, Est GFR (MDRD) Non-Af 10 L, BUN/Creatinine Ratio 28.4 H, Glucose 134 H, Calcium 8.6, Albumin 3.5 Micro: Microbiology 05/28/25 12:13 Fluid - Ascites Gram Stain - Final 05/28/25 12:13 Fluid - Ascites Body Fluid Culture - Preliminary No growth-Final to follow 05/24/25 14:10 Stool Enteric Bacteriology - Final 05/25/25 00:22 Stool Clostridioides difficile (PCR) - Final Rhythm Strip Rhythm Strip: A-fib Rate: 90 Ectopy: None Physical Exam Narrative GENERAL: Patient appears ill looking HEENT: Atraumatic; normocephalic EYES; Anicteric, Normal Conjunctiva NECK; supple, normal thyroid, RESPIRATORY: Diminished to auscultation CARDIOVASCULAR: Regular S1 S2, GI: Abdomen is distended with shifting dullness : No Renal angle tenderness; EXTREMITIES: No edema, no clubbing, MUSCULOSKELETAL: no muscle wasting NEURO: Awake; no lateralizing signs. SKIN: No Rash PSYCH; Flat affect Assessment & Plan Assessment/Plan (1) MONIQUE (acute kidney injury): PLAN: Plan Patient is a 79-year-old lady admitted with progressive generalized weakness and increasing abdominal girth. Patient was found to have acute kidney injury with hyperkalemia superimposed on chronic kidney disease stage III admitted to a monitored bed for subsequent management 1. Acute kidney injury superimposed on chronic kidney disease stage III – This was thought to be secondary to severe dehydration from ongoing diarrhea. Patient was on diuretic therapy with limited and as well as Aldactone held on admission rehydrated with IV fluids with consultation placed to nephrology with daily monitoring of electrolytes ordered – 05/29/2025; case was discussed with nephrology plan is to initiate dialysis pending family approval Did discuss patient worsening kidney function with the possibility of dialysis she is however currently not on board with the idea of having dialysis. Also brought up palliative care consultation and she was not interested in dialysis. –05/30/2025; patient kidney function continues to worsen. Patient and agreed to proceed with dialysis after extensive discussion. Consult subsequently placed to general surgery for temporary dialysis catheter placement. Scheduled to be performed on 05/30/2025 2. Hyperkalemia – Secondary to MONIQUE as well as use of potassium sparing diuretic therapy held on admission patient potassium has since normalized 3. Hyponatremia – Secondary to hypovolemic hyponatremia as well as use of diuretic therapy patient being rehydrated with her diuretic therapy held monitoring with daily BMP 4. Metabolic acidosis – Secondary to patient MONIQUE plan is to treat underlying etiology 5. Newly diagnosed ascites – Plan is for patient to undergo therapeutic and diagnostic paracentesis – 05/29/2025;Patient underwent ultrasound-guided paracentesis with 2650 of bloody fluid aspirated. 6. Chronic congestive heart failure with preserved ejection fraction – Currently compensated patient diuretic therapy held given above reasons 7. Diarrhea – Suspected to be secondary to viral gastroenteritis stool studies came back negative 8. Paroxysmal atrial fibrillation – Rate controlled. Patient has a watchman's procedure and is not on systemic anticoagulation 9. Dyslipidemia –Patient is on statin therapy, continued at home dose 10. Hypothyroidism – Patient is on levothyroxine home dose continued 11. GERD – Patient is on PPI 12. Anemia – Secondary to chronic disorder monitoring H&H and transfuse if patient becomes symptomatic or hemoglobin falls below 7 13. Hypertension – Blood pressure controlled, home medications continued with dose adjustment as needed 14. DVT prophylaxis – Subcu heparin Time spent in the patient's overall evaluation, decision-making process, review of diagnostic data, adjustment of management, discussion with other providers, nursing and ancillary staff involved in patient's care documentation, 38 Minutes Charges/Coding Visit Charges Inpatient E&M: 09380 [facility] L2
--- NOTE | 2025-05-30 07:27 | EX.PCM.CON.S ---
Assessment & Plan Assessment/Plan (1) MONIQUE (acute kidney injury): PLAN: I was consulted for placement of a tunneled dialysis catheter. I discussed this with her this morning. I discussed the procedure as well as the risks including but not limited to bleeding, infection, injury to surrounding organs or pneumothorax. Patient understands the risks and is willing to proceed. I have the patient on for this afternoon. N.p.o. until then. Ebenezer Meza MD Pager: [facility] [address] [place] [address], [address] [place] [address] Office: HPI Consult Data Date of Consult: 05/30/25 HPI Narrative HPI Narrative: YAO SANCHES, is a 79 F who is here with acute on chronic kidney disease. I was consulted for placement of a tunneled dialysis catheter. [facility] Medical History (Updated 05/24/25 @ 23:54 by Yonis KING, PA) MONIQUE (acute kidney injury) Ulcer of left lower extremity with fat layer exposed Anemia of chronic renal failure, stage 3 (moderate) Iron deficiency anemia due to chronic blood loss History of ESBL E. coli infection Type 2 diabetes mellitus Ulcer of left foot with fat layer exposed Ulcer of right foot with fat layer exposed Ulcer of right lower extremity with fat layer exposed Acute on chronic heart failure with preserved ejection fraction Hypokalemia Fatigue Vitamin D deficiency Rheumatoid arthritis Insomnia Mitral valve regurgitation Tachy-lionel syndrome Rheumatic fever GERD (gastroesophageal reflux disease) Chronic renal failure (CRF), stage 3b Cervical cancer Iron deficiency anemia Non-sustained ventricular tachycardia Pulmonary hypertension Rectal bleed Presence of Watchman left atrial appendage closure device Pacemaker Sinus node dysfunction Bradycardia History of cardioversion Skin tear of left forearm without complication Skin cancer Cardiac arrhythmia CHF exacerbation Brain aneurysm Anxiety Family history of brain aneurysm PAD (peripheral artery disease) PAF (paroxysmal atrial fibrillation) Obesity (BMI 30.0-34.9) Laceration of right middle finger Heart disease Diabetes History of cancer Fever HTN (hypertension) Diabetes mellitus type 2 in obese Chest pain, musculoskeletal HLD (hyperlipidemia) URI (upper respiratory infection) Bronchospasm with bronchitis, acute Home Medications Medication Instructions Recorded Last Taken Type atorvastatin 40 mg tablet 40 mg PO DAILY daily 01/07/25 05/24/25 20:04 History bumetanide 2 mg tablet 2 mg PO BID #60 tabs 01/08/25 05/23/25 Rx metoprolol succinate 50 mg 50 mg PO BID blood pressure 02/05/25 05/24/25 06:07 History tablet,extended release 24 hr vitamin B complex 1 tab PO QDAY supplement 02/05/25 05/23/25 History ascorbic acid (vitamin C) 500 mg 500 mg PO QDAY supplement 02/14/25 Unknown History tablet aspirin 81 mg tablet,delayed 81 mg PO QDAY heart health 02/14/25 05/24/25 06:03 History release (Adult Aspirin Regimen) metolazone 5 mg tablet 5 mg PO QDAY PRN edema 02/14/25 Unknown History pantoprazole 40 mg tablet,delayed 40 mg PO QDAY stomach 02/14/25 05/24/25 06:08 History release polysaccharide iron complex 150 mg 150 mg PO QDAY low iron 02/14/25 05/23/25 History iron capsule (Ferrex) potassium chloride 10 mEq 10 meq PO QDAY low potassium 02/14/25 05/23/25 History tablet,extended release(part/cryst) spironolactone 25 mg tablet 12.5 mg PO BID edema 02/14/25 05/22/25 History levothyroxine 50 mcg tablet 50 mcg PO DAILY thyroid 03/01/25 05/24/25 History doxycycline hyclate 100 mg tablet 100 mg PO BID antibiotic 04/05/25 Unknown History Allergy/AdvReac Type Severity Reaction Status Date / Time propofol AdvReac Mild Low blood Verified 05/24/25 19:23 pressure Family History Father Heart disease High cholesterol Myocardial infarction, Onset Age: 58 Mother Heart disease Surgical History Hx of abdominal surgery History of mastoidectomy History of cardiac radiofrequency ablation history skin cancer surgery history bilateral ear surgeries History of hysterectomy H/O aortic valve replacement Social History household members: spouse number of children: 1 current occupational status: retired 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 Smoking Status: Former smoker Tobacco: How many years used: 1 alcohol intake: current alcohol intake frequency: holidays/special occasions only Alcohol type: wine substance use type: does not use Physical Exam Const alert and oriented x3 HEENT normocephalic Eyes PERRL Chest inspection of chest normal Resp normal respiratory effort Cardio Rate: regular rate Rhythm: regular rhythm GI soft to palpation and non-tender Lab / Micro Data 05/30/25 05:12 05/30/25 05:12 Labs: Laboratory Results - last 24 hr 05/30/25 05:12: WBC 11.6 H, RBC 3.66 L, Hgb 11.4 L, Hct 33.6 L, MCV 91.8, MCH 31.1, MCHC 33.9, RDW Std Deviation 64.8 H, RDW Coeff of Yonis 19.9 H, Plt Count 129 L, MPV 10.1, Immature Gran % (Auto) 1.700 H, Neut % (Auto) 77.1 H, Lymph % (Auto) 13.1 L, Dade % (Auto) 6.6, Eos % (Auto) 1.1, Baso % (Auto) 0.4, Absolute Neuts (auto) 8.9 H, Absolute Lymphs (auto) 1.52, Nucleated RBC % 0, Sodium 128 L, Potassium 4.4, Chloride 89 L, Carbon Dioxide 21.0, Anion Gap 18 H, BUN 122 H*, Creatinine 4.29 H, Estim Creat Clear Calc 10.11 L, Est GFR (MDRD) Non-Af 10 L, BUN/Creatinine Ratio 28.4 H, Glucose 134 H, Calcium 8.6, Albumin 3.5 Micro: Microbiology 05/28/25 12:13 Fluid - Ascites Gram Stain - Final 05/28/25 12:13 Fluid - Ascites Body Fluid Culture - Preliminary No growth-Final to follow Rhythm Strip Rhythm Strip: A-fib Rate: 90 Ectopy: None
[2025-05-30] MEDS: Metoprolol(XL)Succ 50 MG Tablet PO ×2 (09:24→22:13)
--- NOTE | 2025-05-30 10:48 | CASEMGMT ---
Social Work SW spoke with the patient and her regarding setting up HH [place]. The reported they do not want HH at [place]. SW asked if they wants a FWW at [place] and they reported yes. SW informed them SW will order them a FWW. CHANO Costello
--- NOTE | 2025-05-30 11:03 | PN.RENAL_ITS ---
Subjective Subjective no new events Objective Data Objective Data Vital Signs: Vital Signs Temp Pulse Resp BP Pulse Ox O2 Del Method 96.9 F L 85 16 135/57 H 99 Room Air 05/30/25 09:23 05/30/25 09:24 05/30/25 09:23 05/30/25 09:24 05/30/25 09:23 05/30/25 10:00 Oxygen Delivery Method Room Air Weight: 72 kg Body Mass Index (BMI) 28.0 Intake & Output: Intake and Output for Last 24 Hours 05/28/25 05/29/25 05/30/25 23:59 23:59 23:59 Intake Total 500 / 500 600 / 600 Output Total 2650 / 2650 0 / 0 Balance -2150 / -2150 600 / 600 Lab / Micro Data 05/30/25 05:12 05/30/25 05:12 Labs: Laboratory Results - last 24 hr 05/28/25 12:13: Miscellaneous Cytology SEE PATHOLOGY REPORT 05/30/25 05:12: WBC 11.6 H, RBC 3.66 L, Hgb 11.4 L, Hct 33.6 L, MCV 91.8, MCH 31.1, MCHC 33.9, RDW Std Deviation 64.8 H, RDW Coeff of Yonis 19.9 H, Plt Count 129 L, MPV 10.1, Immature Gran % (Auto) 1.700 H, Neut % (Auto) 77.1 H, Lymph % (Auto) 13.1 L, Mills % (Auto) 6.6, Eos % (Auto) 1.1, Baso % (Auto) 0.4, Absolute Neuts (auto) 8.9 H, Absolute Lymphs (auto) 1.52, Nucleated RBC % 0, Sodium 128 L , Potassium 4.4, Chloride 89 L, Carbon Dioxide 21.0, Anion Gap 18 H, BUN 122 H*, Creatinine 4.29 H, Estim Creat Clear Calc 10.11 L, Est GFR (MDRD) Non-Af 10 L, B UN/Creatinine Ratio 28.4 H, Glucose 134 H, Hemoglobin A1c 7.8 H, Calcium 8.6, Albumin 3.5 Micro: Microbiology 05/28/25 12:13 Fluid - Ascites Gram Stain - Final 05/28/25 12:13 Fluid - Ascites Body Fluid Culture - Preliminary No growth-Final to follow 05/24/25 14:10 Stool Enteric Bacteriology - Final 05/25/25 00:22 Stool Clostridioides difficile (PCR) - Final Rhythm Strip Rhythm Strip: A-fib Rate: 90 Ectopy: None Physical Exam Narrative Alert awake oriented x 3 no obvious distress no pallor no icterus no JVD s1s2 no murmurs lungs clear abdomen distended Assessment & Plan Assessment/Plan (1) Acute renal failure: PLAN: CKD stage IIIb/IV. Baseline creatinine around 1.8-2.0. Her creatinine was close to baseline in April. Presented with diarrhea which started after taking antibiotic. Abdominal distention, CT imaging consistent with ascites. Newly diagnosed cirrhosis, presumably cardiac cirrhosis. History of congestive heart failure with diastolic dysfunction Urine sodium less than 20. She has received some IV fluids initially. We have also given her albumin. No significant improvement in renal function. Abdominal still distended, pending paracentesis. Okay to use albumin with paracentesis. Likely ATN in the setting of cardiorenal syndrome BUN remains more than 100, creatinine 4.1. No significant improvement. She is nonoliguric. Potassium is acceptable. Bicarbonate is better. May need renal replacement therapy temporarily. She has required dialysis temporarily in the past under similar circumstances. She will think about it and let me know. 05/29/25. padmaja patient and . explained about persistent renal failure. agreeable for HD. padmaja Meza. potentially HD line tomorrow and HD after. will need placement in outpatient HD unit. duration of dialysis unclear. admit as MONIQUE in outpatient dialysis for now. padmaja hospitalist 05/30/25. HD today after line placement
[2025-05-30] MEDS: Mineral Oil/Petrolatum Cr 1.75oz Bottle 1 APPLIC TOPICAL ×2 (12:07→22:14)
--- NOTE | 2025-05-30 12:47 | CASEMGMT ---
TC to Chantelle ([facility] Assistant Case Manager) at [phone] ext [phone] who states that they are able to accept the pt. Chantelle sent a tentative schedule letter that states the pt chair time is 1040 TTS. TC to Federica at [facility] in [place] who states that they expect the pt to arrive at 1000 on Wednesday, prior to the first OP treatment. Federica states that they cannot start the pt on Wednesday and that it will have to be Wednesday due to staffing. CM to send Hep B, access report, and HD treatment sheets once available. RECEIVING OPERATOR CM updated.
[2025-05-30] MEDS: Lactated Ringers 1,000 ML 15 ML IV (13:08)
--- NOTE | 2025-05-30 13:32 | PCM.PRE.AN2 ---
ASA Classification* ASA Classification ASA Classification: 4 (Chronic afib, SSS s/p PPM, s/p AVR 1996, hx mitral stenosis, watchman prcoedure, CKD 4 and persistent renal failure requiring HD line. NO VERSED) Assessment & Plan Anesthesia* Anesthesia Assessment Anesthesia Assessment: Discussed sedation and/or anesthesia options, risks, benefits, and alternatives with patient/parents/legal guardian/POA. Questions invited. The patient/parents/legal guardian/POA seems to understand and agrees to proceed with anesthesia plan. Reviewed the physical assessment, medical history, allergy history and patient home medications list prior to surgery/procedure/anesthetic and documented any changes. Performed airway and anesthesia risk assessments. Anesthesia Type Anesthesia Type: MAC History Source History Obtained from:: Patient and Chart Anesthesia Focused Assessment* Temperature: 97.4 F Pulse Rate: 80 Blood Pressure: 142/50 Respiratory Rate: 14 Pulse Ox: 93 Oxygen Delivery Method: Room Air Airway Assessment Mouth opens: >3 cm Mallampati Score: II Neck Range of motion (ROM): Full ROM Labs Anesthesia Preop lab: CBC WBC, (4.4-11.0) 11.6 K/mm3 H Today, 05:12 RBC, (4.2-5.4) 3.66 M/mm3 L Today, 05:12 Hgb, (12.0-15.0) 11.4 g/dL L Today, 05:12 Hct, (37-47) 33.6 % L Today, 05:12 Plt Count, (150-450) 129 K/mm3 L Today, 05:12 CHEMISTRY Potassium, (3.3-5.1) 4.4 mmol/L Today, 05:12 Sodium, (133-145) 128 mmol/L L Today, 05:12 Magnesium, (1.5-2.2) 1.8 mg/dL 05/25/25, 05:40 Phosphorus, (2.7-4.5) 5.9 mg/dL H 05/25/25, 05:40 BUN, (4-19) 122 mg/dL H* Today, 05:12 Creatinine, (0.70-1.20) 4.29 mg/dL H Today, 05:12 Glucose, (70-99) 134 mg/dL H Today, 05:12 POC Glucose, (74-106) 117 mg/dL H 05/25/25, 16:48 TSH, (0.300-4.200) 5.160 uIU/mL H 05/25/25, 05:40 COAG PT, (11.7-14.9) 17.1 SECONDS H 04/25/15, 14:54 Pre-Assessment Diagnosis/Proposed Procedure Planned Operative Procedure(s): HD line placement Anesthesia History Anesthesia History - insurance premium auditor: Anesthesia History - insurance premium auditor Hx Hospitalization No 03/24/19 13:29 Any Problems With Anesthesia No 05/30/25 08:04 Cholinesterase deficiency No 05/30/25 08:04 You/Your Family Experience No 05/30/25 08:04 fever (hyperthermia) with Relationship Recent Exposure to Contagious Disease Does patient have nerve No 05/30/25 08:04 stimulator Patient instructed to have No 05/30/25 08:04 device shut off --Does patient have Pacemaker Yes 05/30/25 07:55 or ICD? When Was Last Pacemaker Check per pt last card apt 05/30/25 08:04 QUESTION #4 FULL TEXT: You/Your Family Experience fever (hyperthermia) with Anesthesia Last Oral Intake Last Oral intake: Last Oral Intake NPO since Meds taken in AM with sips of Yes 05/30/25 07:55 water? Meds patient instructed to see mar 05/30/25 07:55 take am of surgery PONV PONV - insurance premium auditor: PONV - insurance premium auditor Female HX of Motion Sickness HX of N/V After Surgery Non-Smoker Duration of Surgery greater than 60 minutes Number of Risk Factors PONV Score Height & Weight Height & Weight: Anesthesia: Height & Weight Height 5 ft 3 in 05/30/25 07:55 Weight: 72 kg 05/30/25 07:55 Body Mass Index (BMI) 28.0 05/30/25 07:55 Respiratory Assessment Respiratory Assessment - insurance premium auditor: Respiratory Tract Infection Hx - insurance premium auditor Hx Respiratory Tract Infection No 05/30/25 08:04 STOP Sleep Apnea STOP Sleep Apnea - insurance premium auditor: STOP Sleep Apnea - insurance premium auditor Hx Hypertension Yes 05/25/25 15:04 Hx Sleep Apnea No 05/25/25 00:14 CPAP No 11/15/17 00:15 BIPAP No 11/15/17 00:15 Do you snore loudly (louder No 05/25/25 00:14 than talking or can be heard Do you often feel tired/ No 05/25/25 00:14 fatigued/ sleepy during daytime? Has anyone observed you stop No 05/25/25 00:14 breathing during sleep? STOP Results Negative 05/25/25 00:14 QUESTION #5 FULL TEXT : Do you snore loudly (louder than talking or can be heard through closed doors)? Tobacco Use History Tobacco Use History - insurance premium auditor: Tobacco Use History - insurance premium auditor Tobacco Use Non-smoker 01/11/25 01:45 Smoking Status Former smoker 05/25/25 00:14 Hx Tobacco Use No 05/25/25 00:14 Years Smoking Packs Smoked per Day Smoking Cessation Date was Yes - quit smoking within 15 05/25/25 00:14 within the last 15 years years Hx Smoking Cessation Date Hx Smoking Cessation No 05/25/25 00:14 Counseling Hematologic Medial History Hematologic Hx - insurance premium auditor: Hematologic Medical Hx - documentation improvement specialist Hx of Blood Transfusion Yes 05/25/25 00:14 Hx of Transfusion in last 3 No 05/25/25 00:14 Months Date of Last Transfusion (if within last 3 months) Ever experience any problems No 05/25/25 00:14 with transfusion(s)? Specify any problems Hx of Preganancy in last 3 No 05/25/25 00:14 Months Nurse Filling Out Transfusion AREAD 05/25/25 00:14 & Questions: Date: 05/25/25 05/25/25 00:14 Time: 00:55 05/25/25 00:14 Patient unable to answer at this time (ie. confused, unrespo /Reproduction History /Reproductive History - insurance premium auditor: /Reproductive Hx- insurance premium auditor Hx Now No 05/30/25 08:04 Gestational Age (in weeks): EDC: Hx Hx Para Hx Section SAB No 05/30/25 08:04 Does the father of the baby or his family experience fever w Father of the baby Malignant Hypertension history comment Active Medications Active Medications: Current Medications Generic Name Dose Route Start Last Admin Trade Name Freq PRN Reason Stop Dose Admin Acetaminophen 650 mg 05/25/25 00:13 05/27/25 02:43 Acetaminophen 325 Mg Tablet PO 650 mg Q6H PRN PRN Administration Pain 1-10 Or Fever>100.7 Aspirin 81 mg 05/25/25 08:00 05/30/25 09:27 Aspirin E.C. 81 Mg Tablet PO Not Given BREAKFAST TOMAS Sodium Chloride 250 mls @ 15 mls/hr 05/25/25 00:15 IV .[id number] PRN Saline Flush Sodium Chloride 250 mls @ 15 mls/hr 05/25/25 00:15 IV .[id number] PRN Additional IVPB Infusion Lactated Ringer's 1,000 mls @ 15 mls/hr 05/30/25 13:00 05/30/25 13:08 IV 15 mls/hr .Q48H TOMAS Administration Levothyroxine Sodium 50 mcg 05/25/25 06:00 05/30/25 06:25 Levothyroxine 50 Mcg Tablet PO Not Given DAILY@0600 TOMAS Melatonin 10 mg 05/27/25 22:00 05/29/25 21:18 Melatonin 10 Mg Tablet PO 10 mg QHS TOMAS Administration Metoprolol Succinate 50 mg 05/25/25 10:00 05/30/25 09:24 Metoprolol(Xl)Succ 50 Mg Tablet PO 50 mg BID [facility] Administration Protocol Multi-Ingredient Ointment 1 applic 05/25/25 10:00 05/30/25 12:07 Mineral Oil/Petrolatum Cr 1.75oz Bottle TOPICAL 1 applic BID [facility] Administration Protocol Ondansetron HCl 4 mg 05/25/25 00:13 Ondansetron 4 Mg/2 Ml Vial IV Q8H PRN PRN NAUSEA/VOMITING Senna/Docusate Sodium 2 tablet 05/25/25 00:13 05/29/25 16:50 Senna/Docusate Sodium 1 Tablet PO 2 tablet BID PRN PRN Administration Constipation Sodium Chloride 10 - 40 ml 05/25/25 00:15 05/27/25 14:56 0.9% Saline Lock 10 Ml Syringe IV 10 ml UD PRN Administration SALINE FLUSH [facility], 1928–1983 Medical History (Updated 05/24/25 @ 23:54 by Yonis KING, PA) MONIQUE (acute kidney injury) Ulcer of left lower extremity with fat layer exposed Anemia of chronic renal failure, stage 3 (moderate) Iron deficiency anemia due to chronic blood loss History of ESBL E. coli infection Type 2 diabetes mellitus Ulcer of left foot with fat layer exposed Ulcer of right foot with fat layer exposed Ulcer of right lower extremity with fat layer exposed Acute on chronic heart failure with preserved ejection fraction Hypokalemia Fatigue Vitamin D deficiency Rheumatoid arthritis Insomnia Mitral valve regurgitation Tachy-lionel syndrome Rheumatic fever GERD (gastroesophageal reflux disease) Chronic renal failure (CRF), stage 3b Cervical cancer Iron deficiency anemia Non-sustained ventricular tachycardia Pulmonary hypertension Rectal bleed Presence of Watchman left atrial appendage closure device Pacemaker Sinus node dysfunction Bradycardia History of cardioversion Skin tear of left forearm without complication Skin cancer Cardiac arrhythmia CHF exacerbation Brain aneurysm Anxiety Family history of brain aneurysm PAD (peripheral artery disease) PAF (paroxysmal atrial fibrillation) Obesity (BMI 30.0-34.9) Laceration of right middle finger Heart disease Diabetes History of cancer Fever HTN (hypertension) Diabetes mellitus type 2 in obese Chest pain, musculoskeletal HLD (hyperlipidemia) URI (upper respiratory infection) Bronchospasm with bronchitis, acute Home Medications Medication Instructions Recorded Last Taken Type atorvastatin 40 mg tablet 40 mg PO DAILY daily 01/07/25 05/24/25 20:04 History bumetanide 2 mg tablet 2 mg PO BID #60 tabs 01/08/25 05/23/25 Rx metoprolol succinate 50 mg 50 mg PO BID blood pressure 02/05/25 05/24/25 06:07 History tablet,extended release 24 hr vitamin B complex 1 tab PO QDAY supplement 02/05/25 05/23/25 History ascorbic acid (vitamin C) 500 mg 500 mg PO QDAY supplement 02/14/25 Unknown History tablet aspirin 81 mg tablet,delayed 81 mg PO QDAY [facility] health 02/14/25 05/24/25 06:03 History release (Adult Aspirin Regimen) metolazone 5 mg tablet 5 mg PO QDAY PRN edema 02/14/25 Unknown History pantoprazole 40 mg tablet,delayed 40 mg PO QDAY stomach 02/14/25 05/24/25 06:08 History release polysaccharide iron complex 150 mg 150 mg PO QDAY low iron 02/14/25 05/23/25 History iron capsule (Ferrex) potassium chloride 10 mEq 10 meq PO QDAY low potassium 02/14/25 05/23/25 History tablet,extended release(part/cryst) spironolactone 25 mg tablet 12.5 mg PO BID edema 02/14/25 05/22/25 History levothyroxine 50 mcg tablet 50 mcg PO DAILY thyroid 03/01/25 05/24/25 History doxycycline hyclate 100 mg tablet 100 mg PO BID antibiotic 04/05/25 Unknown History Allergy/AdvReac Type Severity Reaction Status Date / Time propofol AdvReac Mild Low blood Verified 05/24/25 19:23 pressure Family History Father Heart disease High cholesterol Myocardial infarction, Onset Age: 58 Mother Heart disease Surgical History Hx of abdominal surgery History of mastoidectomy History of cardiac radiofrequency ablation history skin cancer surgery history bilateral ear surgeries History of hysterectomy H/O aortic valve replacement Social History household members: spouse number of children: 1 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 Physical Exam Const alert, oriented x3 and average body habitus Resp normal respiratory effort, normal air movement and clear to auscultation bilaterally Cardio no murmurs; Negative for diaphoretic Rhythm: abnormal rhythm irregularly irregular
[2025-05-30] MEDS: Cefazolin 1 GM/5 ML Vial 2 GM IV (15:00)
[2025-05-30] MEDS: dexMEDEtomidine 200 MCG/2 ML ML 20 MCG IV (15:01)
[2025-05-30] MEDS: Lidocaine 1%/Epi 1:200 (30ml) 30 ML AMPUL (15:09)
--- NOTE | 2025-05-30 15:13 | PCM.OPRPT ---
Operative Report (Standard) Operative Information Date of Procedure: 05/30/25 Pre-Operative Diagnosis: Acute kidney injury and need for dialysis Post-Operative Diagnosis: Same Surgery/Procedure Performed: Ultrasound and fluoroscopy guided right chest temporary tunneled dialysis catheter placement utilizing right IJ powder blender and pourer: No Type of Anesthesia: Local MAC RN Documented Start/Stop Times: Operation Date: 05/30/25 14:00 Case Time Into Pre-Op 05/30/25 12:52 Anesthesia Start 05/30/25 14:39 Into Room 05/30/25 14:39 Procedure Start 05/30/25 14:56 Procedure End 05/30/25 15:11 Procedure Start Time: 14:56 Procedure Stop Time: 15:11 Select all DRAINS/GRAFTS/IMPLANTS that apply: Implanted device Implanted device details: 23 cm palindrome curved temporary dialysis catheters Estimated Blood Loss: 20 Specimen collected: No Description of surgery: Patient was brought back to the operating room and MAC anesthesia was induced. The right neck and chest was prepped and draped in usual sterile fashion. Ultrasound was used to localize the right IJ. The skin overlying it was injected with local anesthetic. An area of skin in the right chest was also injected with local anesthetic. A small skin incision was made at each site. The needle and ultrasound were used to access the right IJ. The guidewire was placed down the needle without resistance. It was in good position on fluoroscopy. Next the needle was removed off of the guidewire and serial dilators were placed over the guidewire and then the peel-away sheath was placed over the guidewire and the guidewire was removed and the peel-away sheath was capped. Next the catheters were tunneled from the lower incision to the upper incision and placed through the peel-away catheter. The peel-away sheath was removed. The catheter was in good position on fluoroscopy. Next each catheter was aspirated and flushed. They both aspirated and flushed easily. They were each instilled with 2 cc of heparinized saline and then clamped and capped. The catheter was sutured to the skin using 3-0 nylon suture. The neck incision was closed with 3-0 Vicryl suture. Steri-Strips were applied. Bandages were applied. Patient will be taken to PACU in stable condition chest x-ray will be obtained. Surgical Findings: None Complications Complications: No Admit VTE Documentation VTE Mechan Device Prophylaxis: SCD's
--- NOTE | 2025-05-30 15:17 | RAD_ITS ---
PROCEDURE: CXR FOR LINE PLACEMENT 05/30/2025 REASON FOR EXAM: LINE PLACEMENT TECHNIQUE: Procedure Code: [id number] Modality: DX Procedure: CXR FOR LINE PLACEMENT COMPARISON: May 24, 2025 FINDINGS: Hardware: Right internal jugular dialysis catheter has its tip over the right atrium. Dual lead pacemaker has leads over the right atrium and right ventricular apex. Heart is enlarged. Watchman device is in place. There is enlargement of the pulmonary arteries. Some central congestion is seen. No consolidation is identified. No pleural effusion or pneumothorax. RAD/CXR for Line Placement IMPRESSION: No pneumothorax. Cardiac enlargement, pacemaker, watchman device. Pulmonary arterial hypertensi on. Reading Location: [id number]
--- NOTE | 2025-05-30 15:24 | PCM.POST.ANE ---
Anesthesia: Postop Eval I Current Vital Signs Temperature: 97 F Pulse Rate: 74 Blood Pressure: 97/48 Respiratory Rate: 20 Pulse Ox: 95 Oxygen Delivery Method: Room Air Assessment Airway patent: Yes Spontaneous unlabored respirations: Yes Mental status: Awake and Calm nausea: No Vomiting: No Anesthesia Complication: No Fluid Hydration Crystalloid volume administer (ml): 100 Total IV fluid infused: 100 Progress Note Anesthesia document: Postop Eval 1 completed: Yes
--- NOTE | 2025-05-30 15:46 | CASEMGMT ---
RN CM note: Tentative TTS OP HD schedule letter taken to room to give to pt. Pt has not returned to room yet from having HD line placed. Tentative schedule letter placed in slot for 103 chart @ desk. Didi, weigher and charger, made aware and states will place in front of chart when pt returns to floor. Cesilia LINCOLNN RN CM
--- NOTE | 2025-05-30 16:06 | POSTOPAN2_ITS ---
Anesthesia Postop Eval I Sum Postop Eval Completion status Anesthesia document: Postop Eval 1 completed: Yes Anesthesia Postop Eval I Summary Anesthesia Postop Eval I Summary: Anesthesia Postop Eval I: Assessment Summary Airway patent Yes 05/30/25 15:25 [email or web address] Spontaneous unlabored Yes 05/30/25 15:25 [email or web address] respirations Mental status Awake,Calm 05/30/25 15:25 [email or web address] nausea No 05/30/25 15:25 [email or web address] Vomiting No 05/30/25 15:25 [email or web address] Anesthesia Postop Eval I: Fluid Summary Crystalloid volume administer 100 05/30/25 15:25 [email or web address] (ml) Colloids volume administered ( ml) Blood Product volume administered (ml) Total IV fluid infused 100 05/30/25 15:25 [email or web address] Anesthesia Postop Eval I: Summary Notes Anesthesia Complication No 05/30/25 15:25 [email or web address] Anesthesia Complication Comment: Post-operative progress note Anesthesia: Postop Eval II Evaluation Mental status: Awake Pain Level: 0 nausea: No Vomiting: No Complications Anesthesia Complication: No
--- NOTE | 2025-05-30 16:06 | PCM.POSTANE2 ---
Anesthesia Postop Eval I Sum Postop Eval Completion status Anesthesia document: Postop Eval 1 completed: Yes Anesthesia Postop Eval I Summary Anesthesia Postop Eval I Summary: Anesthesia Postop Eval I: Assessment Summary Airway patent Yes 05/30/25 15:25 TECHNICAL SERVICES [email or web address] Spontaneous unlabored Yes 05/30/25 15:25 TECHNICAL SERVICES [email or web address] respirations Mental status Awake,Calm 05/30/25 15:25 TECHNICAL SERVICES [email or web address] nausea No 05/30/25 15:25 TECHNICAL SERVICES [email or web address] Vomiting No 05/30/25 15:25 TECHNICAL SERVICES [email or web address] Anesthesia Postop Eval I: Fluid Summary Crystalloid volume administer 100 05/30/25 15:25 TECHNICAL SERVICES [email or web address] (ml) Colloids volume administered ( ml) Blood Product volume administered (ml) Total IV fluid infused 100 05/30/25 15:25 TECHNICAL SERVICES [email or web address] Anesthesia Postop Eval I: Summary Notes Anesthesia Complication No 05/30/25 15:25 TECHNICAL SERVICES [email or web address] Anesthesia Complication Comment: Post-operative progress note Anesthesia: Postop Eval II Evaluation Mental status: Awake Pain Level: 0 nausea: No Vomiting: No Complications Anesthesia Complication: No
--- NOTE | 2025-05-30 16:43 | CASEMGMT ---
DOUG MOSES NOTE: Per Chantelle via [facility] portal, financial clearance has been obtained. OP report of chest temporary tunneled dialysis cath placement and CXR confirming line placement sent to [facility] via portal. RN CM to room. Pt getting dialysis and is sleeping. Pt's @ bedside and other family members came in while RN CM in room talking w/. Tentative TTS schedule letter given to and questions answered. and family made aware tentative 1st treatment is 06/05 @ 10:40 AM, pt to arrive @ 10 AM for paperwork. states he has a pre-op appt @ [facility] that same day for an upcoming rt shoulder surgery Jun 26. He is uncertain of time of appt but will obtain this info and can let RN JOSUÉ know on Wednesday. Discussed possible options. states he could see about changing the appt to another day or he considered seeing about taking pt to OP HD Tu AM, assisting w/paperwork, etc and then go to his appt and return to pick pt up after the appt, depending in the timing of everything. Pt's family also stated they can assist w/transportation that day as well. Pt made aware to talk w/CM on Wednesday to update her on appt time and verifying pt has transportation to and from her HD treatment. Pt and family were reminded that this TTS 10:40 AM schedule is tentative and may change. They voice understanding. Further questions answered. They deny having further questions or concerns at this time. Made aware to ask for RN JOSUÉ if any further questions/concerns arise. Cesilia LOPEZ RN, CM
[2025-05-30 17:40] LABS: Hepatitis B Surface Antigen Nonreactive (Nonreactive)
[2025-05-30] MEDS: 0.9% Normal Saline 1,000 ML IV.SOLN. 1000 ML OPERA.SITE (18:13)
[2025-05-30] MEDS: 0.9% Saline Lock 10 ML Syringe IV (18:14)
[2025-05-30] MEDS: PureFlow B 2K Dialysis Soln 1 BAG 6 BAG PF (18:14)
[2025-05-30] MEDS: MELATONIN 10 MG TABLET PO (22:13)
[2025-05-31] VITALS (8 sets, daily range): BP systolic 105–140; BP diastolic 48–68; PULSE 74–93; RESP 16–18; TEMP 35.8–36.5; O2SAT 93–97; BMI 27.8
[2025-05-31 04:34] LABS: Hematocrit 31.5 % (37-47); Hemoglobin 10.6 g/dL (12.0-15.0); Immature Granulocytes Count 0.130 X10^3/uL (0.0-0.0); Mean Corp Hgb Conc 33.7 g/dL (32-36); Mean Corpuscular Volume 92.1 fL (81-99); Mean Platelet Vol. 10.8 fl (6.2-12.0); NRBC Flagged by Analyzer 0.2 % (0-5); POSITIVE COUNT YES; POSITIVE MORPHOLOGY YES; Platelet Count 92 K/mm3 (150-450); RBC Distribution Width CV 20.4 % (11.6-14.6); RBC Distribution Width SD 67.0 fl (35.1-43.9); Red Blood Count 3.42 M/mm3 (4.2-5.4); White Blood Count 9.1 K/mm3 (4.4-11.0)
[2025-05-31 04:39] LABS: Differential Indicated SCAN CRITERIA MET
[2025-05-31 05:08] LABS: Anion Gap 17 (5-15); BUN 97 mg/dL (4-19); BUN/Creat Ratio 27.4 RATIO (10-20); Calcium,Total 8.5 mg/dL (7.6-11.0); Carbon Dioxide 17.9 mmol/L (21.0-32.0); Chloride 93 mmol/L (98-108); Estimated Creatinine Clearance 12.24 ml/min (50-250); Glucose 106 mg/dL (70-99); Potassium 5.5 mmol/L (3.3-5.1)
[2025-05-31 05:41] LABS: Differential Comment SCANNED
[2025-05-31 05:42] LABS: Acanthocytes RARE; Anisocytosis 3+; Crenated RBC RARE; Macrocytosis 1+; Microcytosis 2+; Schistocytes RARE; Target Cells RARE
--- NOTE | 2025-05-31 07:43 | PCM.PN.HOSP ---
Reason for Visit Chief Complaint: weakness Subjective Subjective Patient underwent temporary dialysis catheter placement on 05/30/2025 with initiation of dialysis. Diagnostic data reviewed this a.m. significant for potassium of 5.5. Patient BUN however is trending down Objective Data Objective Data Vital Signs: Vital Signs Temp Pulse Resp BP Pulse Ox O2 Del Method 96.5 F L 74 16 105/48 L 93 Room Air 05/31/25 03:00 05/31/25 03:00 05/31/25 03:00 05/31/25 03:00 05/31/25 03:00 05/31/25 03:00 Oxygen Delivery Method Room Air Weight: 71.4 kg Body Mass Index (BMI) 27.8 Intake & Output: Intake and Output for Last 24 Hours 05/29/25 05/30/25 05/31/25 23:59 23:59 23:59 Intake Total 600 / 600 0 / 0 Output Total 0 / 0 325 / 325 Balance 600 / 600 -325 / -325 0 / 0 Lab / Micro Data 05/31/25 03:56 05/31/25 03:56 Labs: Laboratory Results - last 24 hr 05/28/25 12:13: Miscellaneous Cytology SEE PATHOLOGY REPORT 05/30/25 05:12: Hemoglobin A1c 7.8 H 05/30/25 16:25: Hep Bs Antigen Nonreactive 05/31/25 03:56: WBC 9.1, RBC 3.42 L, Hgb 10.6 L, Hct 31.5 L, MCV 92.1, MCH 31.0, MCHC 33.7, RDW Std Deviation 67.0 H, RDW Coeff of Yonis 20.4 H, Plt Count 92 L, MPV 10.8, Immature Gran % (Auto) 1.400 H, Neut % (Auto) 75.4 H, Lymph % (Auto) 12.2 L, [place] % (Auto) 9.5, Eos % (Auto) 1.1, Baso % (Auto) 0.4, Absolute Neuts (auto) 6.9, Absolute Lymphs (auto) 1.11, Nucleated RBC % 0.2, Differential Comment SCANNED, Platelet Estimate MOD DEC, Anisocytosis 3+, Microcytosis 2+, Macrocytosis 1+, Target Cells RARE, Ovalocytes 2+, Crenated Cell RARE, Acanthocytes (Spur) RARE, Schistocytes RARE, Sodium 128 L, Potassium 5.5 H, Chloride 93 L, Carbon Dioxide 17.9 L, Anion Gap 17 H, BUN 97 H, Creatinine 3.53 H, Estim Creat Clear Calc 12.24 L, Est GFR (MDRD) Non-Af 13 L, BUN/Creatinine Ratio 27.4 H, Glucose 106 H, Calcium 8.5 Micro: Microbiology 05/28/25 12:13 Fluid - Ascites Gram Stain - Final 05/28/25 12:13 Fluid - Ascites Body Fluid Culture - Preliminary No growth-Final to follow 05/24/25 14:10 Stool Enteric Bacteriology - Final 05/25/25 00:22 Stool Clostridioides difficile (PCR) - Final Radiography Diagnostic Testing: Radiology Impression Chest X-Ray 05/30/25 15:17 IMPRESSION: No pneumothorax. Cardiac enlargement, pacemaker, watchman device. Pulmonary arterial hypertension. Reading Location: [facility] Rhythm Strip Rhythm Strip: A-fib Rate: 90 Ectopy: None Physical Exam Narrative GENERAL: Patient appears ill looking HEENT: Atraumatic; normocephalic EYES; Anicteric, Normal Conjunctiva NECK; supple, normal thyroid, RESPIRATORY: Diminished to auscultation CARDIOVASCULAR: Regular S1 S2, systolic murmur GI: Abdomen is distended with shifting dullness : No Renal angle tenderness; EXTREMITIES: No edema, no clubbing, MUSCULOSKELETAL: no muscle wasting NEURO: Awake; no lateralizing signs. SKIN: No Rash PSYCH; Flat affect Const Constitutional Narrative: frail Resp Resp Narrative: right anterior chest wall abnormality Assessment & Plan Assessment/Plan (1) MONIQUE (acute kidney injury): PLAN: Plan Patient is a 79-year-old lady admitted with progressive generalized weakness and increasing abdominal girth. Patient was found to have acute kidney injury with hyperkalemia superimposed on chronic kidney disease stage III admitted to a monitored bed for subsequent management 1. Acute kidney injury superimposed on chronic kidney disease stage III – This was thought to be secondary to severe dehydration from ongoing diarrhea. Patient was on diuretic therapy with limited and as well as Aldactone held on admission rehydrated with IV fluids with consultation placed to nephrology with daily monitoring of electrolytes ordered – 05/29/2025; case was discussed with nephrology plan is to initiate dialysis pending family approval Did discuss patient worsening kidney function with the possibility of dialysis she is however currently not on board with the idea of having dialysis. Also brought up palliative care consultation and she was not interested in dialysis. –05/30/2025; patient kidney function continues to worsen. Patient and agreed to proceed with dialysis after extensive discussion. Consult subsequently placed to general surgery for temporary dialysis catheter placement. Scheduled to be performed on 05/30/2025 – 05/31/2025 patient underwent temporary dialysis catheter placement on 05/30/2025 with initiation of dialysis. Diagnostic data reviewed this a.m. significant for potassium of 5.5. Patient BUN however is trending down 2. Hyperkalemia – Secondary to MONIQUE as well as use of potassium sparing diuretic therapy held on admission patient potassium has since normalized – 05/31/2025; potassium up to 5.5 this a.m. An order was given for Kayexalate, with repeat potassium levels ordered for 1200 3. Hyponatremia – Secondary to hypovolemic hyponatremia as well as use of diuretic therapy patient being rehydrated with her diuretic therapy held monitoring with daily BMP 4. Metabolic acidosis – Secondary to patient MONIQUE plan is to treat underlying etiology 5. Newly diagnosed ascites – Plan is for patient to undergo therapeutic and diagnostic paracentesis – 05/29/2025;Patient underwent ultrasound-guided paracentesis with 2650 of bloody fluid aspirated. 6. Chronic congestive heart failure with preserved ejection fraction – Currently compensated patient diuretic therapy held given above reasons 7. Diarrhea – Suspected to be secondary to viral gastroenteritis stool studies came back negative 8. Paroxysmal atrial fibrillation – Rate controlled. Patient has a watchman's procedure and is not on systemic anticoagulation 9. Dyslipidemia –Patient is on statin therapy, continued at home dose 10. Hypothyroidism – Patient is on levothyroxine home dose continued 11. GERD – Patient is on PPI 12. Anemia – Secondary to chronic disorder monitoring H&H and transfuse if patient becomes symptomatic or hemoglobin falls below 7 13. Hypertension – Blood pressure controlled, home medications continued with dose adjustment as needed 14. DVT prophylaxis – Subcu heparin Time spent in the patient's overall evaluation, decision-making process, review of diagnostic data, adjustment of management, discussion with other providers, nursing and ancillary staff involved in patient's care documentation, 40 Minutes Charges/Coding Visit Charges Inpatient E&M: 05840 Subs Hosp L2
--- NOTE | 2025-05-31 08:09 | PN.SURG_ITS ---
Subjective Subjective Patient seen and examined during AM rounds. She is found sitting out of bed in chair. She appears to confirm that the tunneled hemodialysis catheter, placed yesterday, worked well for her dialysis. Objective Data Objective Data Vital Signs: Vital Signs Temp Pulse Resp BP Pulse Ox O2 Del Method 96.5 F L 74 16 105/48 L 93 Room Air 05/31/25 03:00 05/31/25 03:00 05/31/25 03:00 05/31/25 03:00 05/31/25 03:00 05/31/25 03:00 Oxygen Delivery Method Room Air Weight: 157 lb 6.561 oz Body Mass Index (BMI) 27.8 Intake & Output: Intake and Output for Last 24 Hours 05/29/25 05/30/25 05/31/25 23:59 23:59 23:59 Intake Total 600 / 600 0 / 0 Output Total 0 / 0 325 / 325 Balance 600 / 600 -325 / -325 0 / 0 Lab / Micro Data 05/31/25 03:56 05/31/25 03:56 Labs: Laboratory Results - last 24 hr 05/28/25 12:13: Miscellaneous Cytology SEE PATHOLOGY REPORT 05/30/25 05:12: Hemoglobin A1c 7.8 H 05/30/25 16:25: Hep Bs Antigen Nonreactive 05/31/25 03:56: WBC 9.1, RBC 3.42 L, Hgb 10.6 L, Hct 31.5 L, MCV 92.1, MCH 31.0, MCHC 33.7, RDW Std Deviation 67.0 H, RDW Coeff of Yonis 20.4 H, Plt Count 92 L, MPV 10.8, Immature Gran % (Auto) 1.400 H, Neut % (Auto) 75.4 H, Lymph % (Auto) 12.2 L, [place] % (Auto) 9.5, Eos % (Auto) 1.1, Baso % (Auto) 0.4, Absolute Neuts (auto) 6.9, Absolute Lymphs (auto) 1.11, Nucleated RBC % 0.2, Differential Comment SCANNED, Platelet Estimate MOD DEC, Anisocytosis 3+, Microcytosis 2+, Macrocytosis 1+, Target Cells RARE, Ovalocytes 2+, Crenated Cell RARE, Acanthocytes (Spur) RARE, Schistocytes RARE, Sodium 128 L, Potassium 5.5 H, C hloride 93 L, Carbon Dioxide 17.9 L, Anion Gap 17 H, BUN 97 H, Creatinine 3.53 H , Estim Creat Clear Calc 12.24 L, Est GFR (MDRD) Non-Af 13 L, BUN/Creatinine Ratio 27.4 H, Glucose 106 H, Calcium 8.5 Micro: Microbiology 05/28/25 12:13 Fluid - Ascites Gram Stain - Final 05/28/25 12:13 Fluid - Ascites Body Fluid Culture - Preliminary No growth-Final to follow 05/24/25 14:10 Stool Enteric Bacteriology - Final 05/25/25 00:22 Stool Clostridioides difficile (PCR) - Final Radiography Diagnostic Testing: Radiology Impression Chest X-Ray 05/30/25 15:17 IMPRESSION: No pneumothorax. Cardiac enlargement, pacemaker, watchman device. Pulmonary arterial hypertension. Reading Location: [facility] Rhythm Strip Rhythm Strip: A-fib Rate: 90 Ectopy: None Physical Exam Const oriented x3 Constitutional Narrative: Quite hard of hearing Resp normal respiratory effort Skin Skin Narrative: Significant bruising extending from access site in the neck across right anterior chest wall. No evidence of subcutaneous hematoma. There is no drainage about the catheter tunneling exit site. The catheter is presently locked Assessment & Plan Assessment/Plan (1) MONIQUE (acute kidney injury): PLAN: Patient postop day 1 from right tunneled hemodialysis catheter insertion. Catheter reportedly working well. Overall, site is appropriate but there is significant bruising along the tunneling site. Spontaneous resolution is anticipated with ongoing monitoring recommended. Surgery will now signed off but remain available for future questions or concerns. Thank you Narinder Montero MD General Surgery Endocrine Surgery Pager: [facility] [address] [place] [address], [facility], [address] [place] [address] Office: [phone] Charges/Coding Visit Charges Inpatient E&M: 90688 Subs Hosp L2
[2025-05-31] MEDS: Aspirin E.C. 81 MG Tablet PO (08:24)
[2025-05-31] MEDS: Mineral Oil/Petrolatum Cr 1.75oz Bottle 1 APPLIC TOPICAL ×2 (08:24→21:06)
[2025-05-31] MEDS: Metoprolol(XL)Succ 50 MG Tablet PO ×2 (08:24→21:06)
--- NOTE | 2025-05-31 12:00 | NURSING ---
This RN walked into the pt room to do my 1200 rounds. Pt was resting in the chair comfortably with in room as well. When I walked in the was cutting all of the pts bandages off of right heel and attempting to rewrap the heel without gloves or any cleanliness. When i asked why they felt it to be necessary to undo the bandaged that were just changed this morning, states that he just normally does it so he felt he needed to. This RN rewrapped the pt heel. Pts also spoke about how he disapproves the staff not letting him take her to the bathroom without staff being present. This RN educated pt on the importance of preventing falls and how falls can lead to further injury and longer hospital stays. still does not seem to like this RNs answer dispite the education. Chair alarm still kept on.
[2025-05-31 12:35] LABS: Potassium 4.4 mmol/L (3.3-5.1)
--- NOTE | 2025-05-31 13:00 | NURSING ---
This RN walked into pt room to check on pt. Pt was not in chair or the bed. I went into the bathroom to find the patients had helped her to the bathroom. when asked about the chair alarm he said "I turned that thing off because she doesn't need it while im here". This RN educated pt about the importance of keeping the pt safe and only moving when staff is present despite being in the room as well. I also educated pt that the chair alarm is there to keep the pt safe and prevent falls and further injury, and that is to stay on when pt is in the chair. Pt expressed concern for if pt has to go they have to go "NOW" and that "if she needs to go i don't care i will just take her", I ask pt to please not just take her and re-educated them on the use of the call light and that staff will be with them as soon as we can get there. Pt took education well, pt may need some re-enforcement on the call light, patient safety, and bed/chair alarm education.
[2025-05-31] MEDS: MELATONIN 10 MG TABLET PO (21:06)
--- NOTE | 2025-05-31 22:40 | NURSING ---
Went into patient's room around [id number] to do her evening assessment. Discussed plan of care with as well as patient safety. He stated he would not get her up until staff came back to assist her into bed a little bit later when she was ready. Around 2099 this RN went into patient's room and had left for the night and patient was resting in bed with eyes closed, bed alarm on. PAYROLL SERVICES ANALYST stated she did not put patient into bed, and this RN did not assist her either. Patient said she went to the bathroom and brushed her teeth before bed.
[2025-06-01] VITALS (10 sets, daily range): BP systolic 115–139; BP diastolic 51–71; PULSE 73–92; RESP 13–16; TEMP 36.4–36.9; O2SAT 94–100; BMI 27.1; BMI 26.4
[2025-06-01 06:29] LABS: Hematocrit 33.0 % (37-47); Hemoglobin 10.3 g/dL (12.0-15.0); Immature Granulocytes Count 0.110 X10^3/uL (0.0-0.0); Mean Corp Hgb Conc 31.2 g/dL (32-36); Mean Corpuscular Volume 98.5 fL (81-99); Mean Platelet Vol. 10.0 fl (6.2-12.0); NRBC Flagged by Analyzer 0.2 % (0-5); POSITIVE COUNT YES; POSITIVE MORPHOLOGY YES; Platelet Count 99 K/mm3 (150-450); RBC Distribution Width CV 21.1 % (11.6-14.6); RBC Distribution Width SD 74.3 fl (35.1-43.9); Red Blood Count 3.35 M/mm3 (4.2-5.4); White Blood Count 9.3 K/mm3 (4.4-11.0)
[2025-06-01 06:37] LABS: Differential Indicated SCAN CRITERIA MET
[2025-06-01 07:08] LABS: Anisocytosis 2+
--- NOTE | 2025-06-01 07:23 | PN.HOSP_ITS ---
Reason for Visit Chief Complaint: weakness Subjective Subjective Patient is scheduled to undergo repeat dialysis this a.m.. Patient BUN and creatinine continues to improve. Decision to discharge patient deferred to nephrology Objective Data Objective Data Vital Signs: Vital Signs Temp Pulse Resp BP Pulse Ox O2 Del Method 97.6 F L 92 16 130/57 H 94 Room Air 06/01/25 03:05 06/01/25 03:05 06/01/25 03:05 06/01/25 03:05 06/01/25 03:05 06/01/25 03:05 Oxygen Delivery Method Room Air Weight: 69.4 kg Body Mass Index (BMI) 27.1 Intake & Output: Intake and Output for Last 24 Hours 05/30/25 05/31/25 06/01/25 23:59 23:59 23:59 Intake Total 328 / 328 50 / 50 Output Total 325 / 325 Balance -325 / -325 328 / 328 50 / 50 Lab / Micro Data 06/01/25 05:59 06/01/25 05:59 Labs: Laboratory Results - last 24 hr 05/31/25 12:15: Potassium 4.4 06/01/25 05:59: WBC 9.3, RBC 3.35 L, Hgb 10.3 L, Hct 33.0 L, MCV 98.5 D, MCH 30.7, MCHC 31.2 L D, RDW Std Deviation 74.3 H, RDW Coeff of Yonis 21.1 H, Plt Count 99 L, MPV 10.0, Immature Gran % (Auto) 1.200 H, Neut % (Auto) 73.4 H, L ymph % (Auto) 11.5 L, [place] % (Auto) 12.3 H, Eos % (Auto) 1.0, Baso % (Auto) 0.6, Absolute Neuts (auto) 6.9, Absolute Lymphs (auto) 1.07, Nucleated RBC % 0.2, Platelet Estimate SLT DEC, Anisocytosis 2+ Micro: Microbiology 05/28/25 12:13 Fluid - Ascites Gram Stain - Final 05/28/25 12:13 Fluid - Ascites Body Fluid Culture - Preliminary No growth-Final to follow 05/24/25 14:10 Stool Enteric Bacteriology - Final 05/25/25 00:22 Stool Clostridioides difficile (PCR) - Final Rhythm Strip Rhythm Strip: A-fib Rate: 90 Ectopy: None Physical Exam Narrative GENERAL: Patient appears ill looking HEENT: Atraumatic; normocephalic EYES; Anicteric, Normal Conjunctiva NECK; supple, normal thyroid, RESPIRATORY: Diminished to auscultation CARDIOVASCULAR: Regular S1 S2, systolic murmur GI: Abdomen is distended with shifting dullness : No Renal angle tenderness; EXTREMITIES: No edema, no clubbing, MUSCULOSKELETAL: no muscle wasting NEURO: Awake; no lateralizing signs. SKIN: No Rash PSYCH; Flat affect Const alert, oriented x3 and no apparent distress Constitutional Narrative: frail General Appearance: cooperative HEENT normocephalic and head/scalp atraumatic Eyes PERRL Neck no lymphadenopathy Resp normal respiratory effort Resp Narrative: right anterior chest wall abnormality Cardio Cardio Narrative: irregulary irregular, 3/6 systolic murmur LSB 2nd ICS GI soft to palpation and non-tender GI Narrative: mild bloating Auscultation: hyperactive bowel sounds Palpation: Negative for tender Extremity Extremity Narrative: RLE edema with some drainage Skin Skin Narrative: R foot, cracking, dry skin. erythema of the RLE Neuro oriented x3 Sensorium / Orientation: awake and alert Psych affect normal Assessment & Plan Assessment/Plan (1) MONIQUE (acute kidney injury): PLAN: Plan Patient is a 79-year-old lady admitted with progressive generalized weakness and increasing abdominal girth. Patient was found to have acute kidney injury with hyperkalemia superimposed on chronic kidney disease stage III admitted to a monitored bed for subsequent management 1. Acute kidney injury superimposed on chronic kidney disease stage III – This was thought to be secondary to severe dehydration from ongoing diarrhea. Patient was on diuretic therapy with limited and as well as Aldactone held on admission rehydrated with IV fluids with consultation placed to nephrology with daily monitoring of electrolytes ordered – 05/29/2025; case was discussed with nephrology plan is to initiate dialysis pending family approval Did discuss patient worsening kidney function with the possibility of dialysis she is however currently not on board with the idea of having dialysis. Also brought up palliative care consultation and she was not interested in dialysis. –05/30/2025; patient kidney function continues to worsen. Patient and agreed to proceed with dialysis after extensive discussion. Consult subsequently placed to general surgery for temporary dialysis catheter placement. Scheduled to be performed on 05/30/2025 – 05/31/2025 patient underwent temporary dialysis catheter placement on 05/30/2025 with initiation of dialysis. Diagnostic data reviewed this a.m. significant for potassium of 5.5. Patient BUN however is trending down – 06/01/2025;Patient is scheduled to undergo repeat dialysis this a.m.. Patient BUN and creatinine continues to improve. Decision to discharge patient deferred to nephrology 2. Hyperkalemia – Secondary to MONIQUE as well as use of potassium sparing diuretic therapy held on admission patient potassium has since normalized – 05/31/2025; potassium up to 5.5 this a.m. An order was given for Kayexalate, with repeat potassium levels ordered for 1200 3. Hyponatremia – Secondary to hypovolemic hyponatremia as well as use of diuretic therapy patient being rehydrated with her diuretic therapy held monitoring with daily BMP 4. Metabolic acidosis – Secondary to patient MONIQUE plan is to treat underlying etiology 5. Newly diagnosed ascites – Plan is for patient to undergo therapeutic and diagnostic paracentesis – 05/29/2025;Patient underwent ultrasound-guided paracentesis with 2650 of bloody fluid aspirated. 6. Chronic congestive heart failure with preserved ejection fraction – Currently compensated patient diuretic therapy held given above reasons 7. Diarrhea – Suspected to be secondary to viral gastroenteritis stool studies came back negative 8. Paroxysmal atrial fibrillation – Rate controlled. Patient has a watchman's procedure and is not on systemic anticoagulation 9. Dyslipidemia –Patient is on statin therapy, continued at home dose 10. Hypothyroidism – Patient is on levothyroxine home dose continued 11. GERD – Patient is on PPI 12. Anemia – Secondary to chronic disorder monitoring H&H and transfuse if patient becomes symptomatic or hemoglobin falls below 7 13. Hypertension – Blood pressure controlled, home medications continued with dose adjustment as needed 14. Thrombocytopenia – 06/01/2025; patient appears to have some chronicity given continuous drop patient subcu heparin for DVT prophylaxis discontinued 15 DVT prophylaxis – Subcu heparin – 06/01/2025; subcu heparin discontinued given reasons above Time spent in the patient's overall evaluation, decision-making process, review of diagnostic data, adjustment of management, discussion with other providers, nursing and ancillary staff involved in patient's care documentation, 36 Minutes Charges/Coding Visit Charges Inpatient E&M: 03000 Subs Hosp L2
[2025-06-01 07:31] LABS: Anion Gap 20 (5-15); BUN 91 mg/dL (4-19); BUN/Creat Ratio 23.5 RATIO (10-20); Calcium,Total 8.0 mg/dL (7.6-11.0); Carbon Dioxide 13.6 mmol/L (21.0-32.0); Chloride 94 mmol/L (98-108); Estimated Creatinine Clearance 11.02 ml/min (50-250); Glucose 112 mg/dL (70-99); Potassium 4.1 mmol/L (3.3-5.1)
[2025-06-01] MEDS: 0.9% Normal Saline 1,000 ML IV.SOLN. 1000 ML OPERA.SITE (08:29)
[2025-06-01] MEDS: PureFlow B 2K Dialysis Soln 1 BAG 6 BAG PF (08:29)
[2025-06-01] MEDS: 0.9% Saline Lock 10 ML Syringe IV ×2 (08:30→11:15)
--- NOTE | 2025-06-01 09:56 | CASEMGMT ---
Social Work SW submitted a DME order through [facility] to [facility] for FWW. CHANO Gutiérrez
--- NOTE | 2025-06-01 10:19 | CASEMGMT ---
Social Work Face to Face with pt for initial transition planning/care coordination assessment. SW introduced self and role at [facility], pt voices understanding and consents to assessment. Pt is A&O x4 and answers all questions appropriately at this time. Admitting Dx: UTI, hyperglycemia Primary Care Doctor: Dr. Hernandez Speciality doctors: none Insurance: [employer] Medicare Pharmacy: Patient utilizes [facility] in [place] Advanced directives: Patient reported he has a POA/LW. SW requested a copy for his chart. LNOK:. , son, daughter, 6 grandchildren Living Situation: Patient lives at home with his . His son and daughter live in the area. There are 4 steps into the home. ADL's/Prior level of functioning: independent Transportation: Patient still drives. DME: [facility] FDC/home health history: none Mental Health: none Substance abuse history: none Assessment: Patient lives at home with his . His son and daughter live in the area. There are 4 steps into the home. PLAN: To be determined. CHANO Costello
--- NOTE | 2025-06-01 11:21 | PCM.PN.REN ---
Subjective Subjective Following for dialysis dependent MONIQUE on CKD. Patient denies chest pain, dyspnea at rest, or nausea. Appetite is picking up. Diarrhea has resolved. Objective Data Objective Data Vital Signs: Vital Signs Temp Pulse Resp BP Pulse Ox O2 Del Method 98.3 F 78 13 131/54 H 100 Room Air 06/01/25 08:26 06/01/25 10:26 06/01/25 10:26 06/01/25 10:26 06/01/25 10:26 06/01/25 10:26 Oxygen Delivery Method Room Air Weight: 69.4 kg Body Mass Index (BMI) 27.1 Intake & Output: Intake and Output for Last 24 Hours 05/30/25 05/31/25 06/01/25 23:59 23:59 23:59 Intake Total 328 / 328 50 / 50 Output Total 325 / 325 Balance -325 / -325 328 / 328 50 / 50 Lab / Micro Data 06/01/25 05:59 06/01/25 05:59 Labs: Laboratory Results - last 24 hr 05/31/25 12:15: Potassium 4.4 06/01/25 05:59: WBC 9.3, RBC 3.35 L, Hgb 10.3 L, Hct 33.0 L, MCV 98.5 D, MCH 30.7, MCHC 31.2 L D, RDW Std Deviation 74.3 H, RDW Coeff of Yonis 21.1 H, Plt Count 99 L, MPV 10.0, Immature Gran % (Auto) 1.200 H, Neut % (Auto) 73.4 H, Lymph % (Auto) 11.5 L, [place] % (Auto) 12.3 H, Eos % (Auto) 1.0, Baso % (Auto) 0.6, Absolute Neuts (auto) 6.9, Absolute Lymphs (auto) 1.07, Nucleated RBC % 0.2, Platelet Estimate SLT DEC, Anisocytosis 2+, Sodium 128 L, Potassium 4.1, Chloride 94 L, Carbon Dioxide 13.6 L, Anion Gap 20 H, BUN 91 H, Creatinine 3.87 H, Estim Creat Clear Calc 11.02 L, Est GFR (MDRD) Non-Af 11 L, BUN/Creatinine Ratio 23.5 H, Glucose 112 H, Calcium 8.0 Micro: Microbiology 05/28/25 12:13 Fluid - Ascites Gram Stain - Final 05/28/25 12:13 Fluid - Ascites Body Fluid Culture - Final Culture exhibits no growth. 05/24/25 14:10 Stool Enteric Bacteriology - Final 05/25/25 00:22 Stool Clostridioides difficile (PCR) - Final Rhythm Strip Rhythm Strip: A-fib Rate: 90 Ectopy: None Physical Exam Narrative Alert awake oriented x 3 no obvious distress no pallor no icterus no JVD s1s2 no murmurs lungs clear abdomen distended 1+ edema of lower extremities Assessment & Plan Assessment/Plan (1) Acute renal failure: (2) Chronic renal failure (CRF), stage 3b: (3) Acute hyperkalemia: (4) HTN (hypertension): QUALIFIERS: Hypertension type: essential hypertension Qualified Code(s): I10 - Essential (primary) hypertension PLAN: Plan Assessment/Plan: Patient is a 79-year-old female with past history of CKD stage G3b, type 2 diabetes mellitus, hypertension, paroxysmal atrial fibrillation, aortic stenosis status post SAVR, sick sinus syndrome status post pacemaker placement, HFpEF, PAD, anemia, hyperlipidemia, and generalized anxiety disorder. Patient presented to the hospital on 05/24/2025 with generalized weakness. Patient also reported recent treatment for right lower extremity cellulitis with doxycycline followed by several days of diarrhea prior to presentation. During this admission, patient was also found to have new diagnosis of cirrhosis which was thought to be secondary to cardiac cause. Nephrology is following for MONIQUE on CKD. Acute kidney injury on chronic kidney disease stage G3b. Baseline serum creatinine has been around 1.80 to 2.00 mg/dL as recently as April 2025. MONIQUE is likely secondary to ATN in the setting of cardiorenal syndrome Renal function did not improve with volume expansion, and BUN remains more than 100 mg/dL, creatinine 4.39 mg/dL on 05/30/2025. She has required dialysis temporarily in the past under similar circumstances. Since patient did not improve, we started patient on dialysis on 05/30/2025 after TDC placement. Patient was dialyzed again today on 06/01/2025. Patient is okay to be discharge from nephrology standpoint. She should follow-up at [facility] on 06/05/2025 for the next hemodialysis treatment. Will monitor for any recovery of renal function as outpatient at the dialysis center. Hyperkalemia. Resolved. Patient presented with potassium level of 6.6 mmol/L on 05/24/2025. Patient has been on spironolactone and potassium chloride supplementation prior to admission. Hyperkalemia was treated medically at first and is currently controlled on dialysis. Potassium level is 4.1 mmol/L today on 06/01/2025. Would not restart MRA or potassium chloride supplementation at this point. Hypertension. BP is controlled without spironolactone. Okay to continue metoprolol. Nephrology plan was discussed with Dr. Mcintyre.
[2025-06-01] MEDS: Metoprolol(XL)Succ 50 MG Tablet PO (11:39)
[2025-06-01] MEDS: Aspirin E.C. 81 MG Tablet PO (11:39)
[2025-06-01] MEDS: Mineral Oil/Petrolatum Cr 1.75oz Bottle 1 APPLIC TOPICAL (11:39)
--- NOTE | 2025-06-01 12:00 | DS.PCM_ITS ---
Providers Date of Admission: 05/24/25 Date of Discharge: 06/01/25 Primary Care Physician: Dr. Vincent Flores MD Consultations 05/25/25 03:27 Consult: Onc/Wound/phlebotomy specialist Routine Comment: Reason for Consult:: R heel wound Comments:: pt. has been following with wound clinic 05/25/25 07:58 Consult: Nephrology Routine Consulting Provider: Jeremy Mcgarry Reason for Consult: MONIQUE on CKD, acidosis, hyperkalemia, min change w/ overnight measures EMERGENT Consult: No MD Notified: Yes Date Notified: 05/25/25 Time Notified: 08:17 Method of Notification: Answering Service 05/29/25 10:46 Consult: General Surgery Routine Consulting Provider: Ebenezer Meza Reason for Consult: Tunneled dialysis catheter placement EMERGENT Consult: No Notified: Yes Date Notified: 05/29/25 Time Notified: 10:51 Method of Notification: Text Reason For Visit: MONIQUE Diagnosis Discharge Diagnosis (1) Acute renal failure: Status: Acute Code(s): N17.9 - Acute kidney failure, unspecified (2) Chronic renal failure (CRF), stage 3b: Status: Acute Code(s): N18.32 - Chronic kidney disease, stage 3b (3) Acute hyperkalemia: Status: Acute Code(s): E87.5 - Hyperkalemia (4) HTN (hypertension): Status: Chronic Code(s): I10 - Essential (primary) hypertension Qualifiers: Hypertension type: essential hypertension Qualified Code(s): I10 - Essential (primary) hypertension Plan Patient is a 79-year-old lady admitted with progressive generalized weakness and increasing abdominal girth. Patient was found to have acute kidney injury with hyperkalemia superimposed on chronic kidney disease stage III admitted to a monitored bed for subsequent management 1. Acute kidney injury superimposed on chronic kidney disease stage III – This was thought to be secondary to severe dehydration from ongoing diarrhea. Patient was on diuretic therapy with limited and as well as Aldactone held on admission rehydrated with IV fluids with consultation placed to nephrology with daily monitoring of electrolytes ordered – 05/29/2025; case was discussed with nephrology plan is to initiate dialysis pending family approval Did discuss patient worsening kidney function with the possibility of dialysis she is however currently not on board with the idea of having dialysis. Also brought up palliative care consultation and she was not interested in dialysis. –05/30/2025; patient kidney function continues to worsen. Patient and agreed to proceed with dialysis after extensive discussion. Consult subsequently placed to general surgery for temporary dialysis catheter placement. Scheduled to be performed on 05/30/2025 – 05/31/2025 patient underwent temporary dialysis catheter placement on 05/30/2025 with initiation of dialysis. Diagnostic data reviewed this a.m. significant for potassium of 5.5. Patient BUN however is trending down – 06/01/2025;Patient is scheduled to undergo repeat dialysis this a.m.. Patient BUN and creatinine continues to improve. Decision to discharge patient deferred to nephrology – 05/24/2025; case was discussed with Dr. Mcdonald gave the go ahead for patient to be discharged. Patient has already been set up for dialysis as outpatient 2. Hyperkalemia – Secondary to MONIQUE as well as use of potassium sparing diuretic therapy held on admission patient potassium has since normalized – 05/31/2025; potassium up to 5.5 this a.m. An order was given for Kayexalate, with repeat potassium levels ordered for 1200 – 06/01/2025; patient potassium on the day of discharge was 4.1 3. Hyponatremia – Secondary to hypovolemic hyponatremia as well as use of diuretic therapy patient being rehydrated with her diuretic therapy held monitoring with daily BMP 4. Metabolic acidosis – Secondary to patient MONIQUE plan is to treat underlying etiology 5. Newly diagnosed ascites – Plan is for patient to undergo therapeutic and diagnostic paracentesis – 05/29/2025;Patient underwent ultrasound-guided paracentesis with 2650 of bloody fluid aspirated. 6. Chronic congestive heart failure with preserved ejection fraction – Currently compensated patient diuretic therapy held given above reasons 7. Diarrhea – Suspected to be secondary to viral gastroenteritis stool studies came back negative 8. Paroxysmal atrial fibrillation – Rate controlled. Patient has a watchman's procedure and is not on systemic anticoagulation 9. Dyslipidemia –Patient is on statin therapy, continued at home dose 10. Hypothyroidism – Patient is on levothyroxine home dose continued 11. GERD – Patient is on PPI 12. Anemia – Secondary to chronic disorder monitoring H&H and transfuse if patient becomes symptomatic or hemoglobin falls below 7 13. Hypertension – Blood pressure controlled, home medications continued with dose adjustment as needed 14. Thrombocytopenia – 06/01/2025; patient appears to have some chronicity given continuous drop patient subcu heparin for DVT prophylaxis discontinued 15 DVT prophylaxis – Subcu heparin – 06/01/2025; subcu heparin discontinued given reasons above Time spent in the patient's overall evaluation, decision-making process, review of diagnostic data, adjustment of management, discussion with other providers, nursing and ancillary staff involved in patient's care documentation, 36 Minutes Medications at Discharge Home Medications atorvastatin 40 mg tablet 40 mg PO DAILY daily 01/07/25 metoprolol succinate 50 mg tablet,extended release 24 hr 50 mg PO BID blood pressure 02/05/25 vitamin B complex 1 tab PO QDAY supplement 02/05/25 ascorbic acid (vitamin C) 500 mg tablet 500 mg PO QDAY supplement 02/14/25 aspirin 81 mg tablet,delayed release (Adult Aspirin Regimen) 81 mg PO QDAY heart health 02/14/25 pantoprazole 40 mg tablet,delayed release 40 mg PO QDAY stomach 02/14/25 polysaccharide iron complex 150 mg iron capsule (Ferrex) 150 mg PO QDAY low iron 02/14/25 levothyroxine 50 mcg tablet 50 mcg PO DAILY thyroid 03/01/25 Physical Exam Narrative GENERAL: Frail HEENT: Atraumatic; normocephalic EYES; Anicteric, Normal Conjunctiva NECK; supple, normal thyroid, RESPIRATORY: Diminished to auscultation CARDIOVASCULAR: Regular S1 S2, systolic murmur GI: Abdomen is distended with shifting dullness : No Renal angle tenderness; EXTREMITIES: No edema, no clubbing, MUSCULOSKELETAL: no muscle wasting NEURO: Awake; no lateralizing signs. SKIN: No Rash PSYCH; Flat affect Weight / BMI Weight Weight: 67.8 kg Body Mass Index (BMI) 26.4 ABG / Lab / Microbiology Data 06/01/25 05:59 06/01/25 05:59 Laboratory: Laboratory Results - last 24 hr 05/31/25 12:15: Potassium 4.4 06/01/25 05:59: WBC 9.3, RBC 3.35 L, Hgb 10.3 L, Hct 33.0 L, MCV 98.5 D, MCH 30.7, MCHC 31.2 L D, RDW Std Deviation 74.3 H, RDW Coeff of Yonis 21.1 H, Plt Count 99 L, MPV 10.0, Immature Gran % (Auto) 1.200 H, Neut % (Auto) 73.4 H, L ymph % (Auto) 11.5 L, [place] % (Auto) 12.3 H, Eos % (Auto) 1.0, Baso % (Auto) 0.6, Absolute Neuts (auto) 6.9, Absolute Lymphs (auto) 1.07, Nucleated RBC % 0.2, Platelet Estimate SLT DEC, Anisocytosis 2+, Sodium 128 L, Potassium 4.1, C hloride 94 L, Carbon Dioxide 13.6 L, Anion Gap 20 H, BUN 91 H, Creatinine 3.87 H , Estim Creat Clear Calc 11.02 L, Est GFR (MDRD) Non-Af 11 L, BUN/Creatinine Ratio 23.5 H, Glucose 112 H, Calcium 8.0 Microbiology: Microbiology 05/28/25 12:13 Fluid - Ascites Gram Stain - Final 05/28/25 12:13 Fluid - Ascites Body Fluid Culture - Final Culture exhibits no growth. 05/24/25 14:10 Stool Enteric Bacteriology - Final 05/25/25 00:22 Stool Clostridioides difficile (PCR) - Final D/C Instructions DC O2, CPAP, BIPAP Needs Home O2 Discharge instructions: No Meaningful Use Info Meaningful Use Meaningful Use Diagnoses (Choose all that apply): None applicable Discharge Plan Admission Admit Date/Time: 05/24/25 23:18 Attending Provider: Ananda Mcintyre Primary Care Provider: Vincent Flores Chi Consulting Providers: Yamileth Brock; Jeremy Mcgarry; Radha Heller; Ebenezer Meza Discharge Orders/Prescriptions Prescriptions: Continued vitamin B complex Tablet 1 tab PO QDAY metoprolol succinate 50 mg tablet extended release 24 hr 50 mg PO BID polysaccharide iron complex [Ferrex 150] 150 mg iron capsule 150 mg PO QDAY ascorbic acid (vitamin C) 500 mg tablet 500 mg PO QDAY aspirin [Adult Aspirin Regimen] 81 mg tablet,delayed release (DR/EC) 81 mg PO QDAY levothyroxine 50 mcg tablet 50 mcg PO DAILY atorvastatin 40 mg tablet 40 mg PO DAILY pantoprazole 40 mg tablet,delayed release (DR/EC) 40 mg PO QDAY Discontinued potassium chloride 10 mEq tablet,ER particles/crystals 10 meq PO QDAY metolazone 5 mg tablet 5 mg PO QDAY PRN (Reason: edema) Rx Instructions: goal weight 136 lb bumetanide 2 mg tablet 2 mg PO BID Qty: 60 0RF spironolactone 25 mg tablet 12.5 mg PO BID doxycycline hyclate 100 mg tablet 100 mg PO BID Referrals / Follow Up: Vincent Flores Chi, MD [Primary Care Provider, Geriatrics] - Within 1 Week Disposition Disposition (needs filled in before D/C Order can be placed): Home, Self Care Charges/Coding Visit Charges Inpatient E&M: 95372 Disch Hosp >30min
--- NOTE | 2025-06-01 14:03 | CASEMGMT ---
DOUG MOSES sent updated information through portal to [employer]. Called and spoke with Federica to make sure they have all they need. She confirmed TTS, and confirmed she received all the paperwork. DOUG MOSES into Pt room, denies questions or concerns at this time.
[2025-06-05 08:45] VITALS: BP 126/48; PULSE 90; RESP 12; TEMP 36.8; O2SAT 97; BMI 26.4
== END 2025-06-01 14:50 | disposition home or self-care (01) | DRG 674 ==
LOC: ED 23:18 → PCU 23:36
PROVIDERS: Internal Medicine; Internal Medicine Nephrology; Student in an Organized Health Care Education/Training Program; Surgery; Admitting Provider Internal Medicine; Emergency Provider Emergency Medicine; PCP Family Medicine Geriatric Medicine; Visit Provider Internal Medicine
PROC: 0JH63XZ Insertion of Tunneled Vascular Access Device into Chest Subcutaneous Tissue and Fascia, Percutaneous Approach (ICD-10-PCS; principal; 2025-05-30 13:45)
DX: N17.0 Acute kidney failure with tubular necrosis (principal); E87.1 Hypo-osmolality and hyponatremia; E87.20 Acidosis, unspecified; I13.0 Hypertensive heart and chronic kidney disease with heart failure and stage 1 through stage 4 chronic kidney disease, or unspecified chronic kidney disease; I50.32 Chronic diastolic (congestive) heart failure; L03.115 Cellulitis of right lower limb; R18.8 Other ascites; D69.6 Thrombocytopenia, unspecified; D63.1 Anemia in chronic kidney disease; I49.5 Sick sinus syndrome; Z66 Do not resuscitate; I48.0 Paroxysmal atrial fibrillation; E86.0 Dehydration; E11.22 Type 2 diabetes mellitus with diabetic chronic kidney disease; N18.32 Chronic kidney disease, stage 3b; M06.9 Rheumatoid arthritis, unspecified; K76.1 Chronic passive congestion of liver; I27.20 Pulmonary hypertension, unspecified; E03.9 Hypothyroidism, unspecified; Z95.2 Presence of prosthetic heart valve; D50.9 Iron deficiency anemia, unspecified; I35.0 Nonrheumatic aortic (valve) stenosis; K21.9 Gastro-esophageal reflux disease without esophagitis; F41.9 Anxiety disorder, unspecified; E11.51 Type 2 diabetes mellitus with diabetic peripheral angiopathy without gangrene; E87.5 Hyperkalemia; I25.10 Atherosclerotic heart disease of native coronary artery without angina pectoris; E87.8 Other disorders of electrolyte and fluid balance, not elsewhere classified; E78.5 Hyperlipidemia, unspecified; W19.XXXA Unspecified fall, initial encounter; S91.301A Unspecified open wound, right foot, initial encounter; I34.0 Nonrheumatic mitral (valve) insufficiency; A08.4 Viral intestinal infection, unspecified; Y92.59 Other trade areas as the place of occurrence of the external cause; M95.4 Acquired deformity of chest and rib; Z95.810 Presence of automatic (implantable) cardiac defibrillator; Z79.82 Long term (current) use of aspirin; Z87.19 Personal history of other diseases of the digestive system; Z79.890 Hormone replacement therapy; Z79.899 Other long term (current) drug therapy; Z87.891 Personal history of nicotine dependence
CPT/HCPCS: 36415; 49083; 71045; 71046; 71250; 74176; 77001; 80048; 80053; 81001; 82040; 82570; 82945; 82962; 83036; 83605; 83615; 83690; 83735; 84100; 84132; 84157; 84300; 84443; 84540; 85025; 87070; 87075; 87205; 87340; 87493; 87506; 88108; 88305; 88313; 88341; 88342; 89050; 90937; 93005; 93970; 94640; 97110; 97116; 97162; 97166; 97530; 97535; 97803; 99285; C1750; P9047; P9612; A4216; G0257; J0612; J2405

== ENCOUNTER 2025-06-06 11:55 | Inpatient (IN) | payer MEDICARE, SELFPAY ==
[2025-06-06] VITALS (9 sets, daily range): BP systolic 95–137; BP diastolic 49–89; PULSE 68–74; RESP 13–18; TEMP 36.1–36.6; O2SAT 97–99; BMI 29.1; BMI 27.6
--- NOTE | 2025-06-06 12:40 | EKG12_ITS ---
Test Reason : Blood Pressure : */* mmHG Vent. Rate : 72 BPM Atrial Rate : 72 BPM P-R Int : 218 ms QRS Dur : 114 ms QT Int : 402 ms P-R-T Axes : 41 -62 220 degrees QTcB Int : 440 ms Atrial fibrillation Confirmed by TORSTEN UGARTE, MIKE ([id number]), assistant production editor TAMEKA MCKENZIE ([id number]) on 06/08/2025 9:02:48 AM Referred By: Confirmed By: MIKE SARMIENTO MD
[2025-06-06 13:07] LABS: Hematocrit 31.1 % (37-47); Hemoglobin 9.8 g/dL (12.0-15.0); Immature Granulocytes Count 0.060 X10^3/uL (0.0-0.0); Mean Corp Hgb Conc 31.5 g/dL (32-36); Mean Corpuscular Volume 97.8 fL (81-99); Mean Platelet Vol. 10.2 fl (6.2-12.0); NRBC Flagged by Analyzer 0 % (0-5); POSITIVE MORPHOLOGY YES; Platelet Count 101 K/mm3 (150-450); RBC Distribution Width CV 21.2 % (11.6-14.6); RBC Distribution Width SD 76.8 fl (35.1-43.9); Red Blood Count 3.18 M/mm3 (4.2-5.4); White Blood Count 8.9 K/mm3 (4.4-11.0)
--- NOTE | 2025-06-06 13:08 | CT_ITS ---
PROCEDURE: ABDOMEN/PELVIS WITHOUT CONT 06/06/2025 REASON FOR EXAM: ABDOMINAL DISTENSIONS, BLOATING Weight gain. Recent dialysis. TECHNIQUE: Procedure Code: CTABDPEL Modality: CT Procedure: ABDOMEN/PELVIS WITHOUT CONT Noncontrast technique limits evaluation of the abdominal and pelvic viscera. Coronal and Sagittal reconstruction series were provided. One or more dose reduction techniques were used (e.g., Automated exposure control, adjustment of the mA and/or kV according to patient size, use of iterative reconstruction technique). RADIATION DOSE SUMMARY: CTDlvol: 11.25 mGy DLP: 576.22 mGycm COMPARISON: May 24, 2025. FINDINGS: Lung bases: Slight increase in the right pleural effusion with bibasilar atelectasis worse on the right side. Minimal left pleural effusion. Cardiomegaly. Coronary artery calcification. Dual-chamber pacemaker. Diffuse ascites. Increased soft tissue density within the subcutaneous tissue in keeping with anasarca. Liver: Scattered hepatic granulomas. Gallbladder: Multiple tiny gallstones. Spleen: Multiple splenic granulomas. Mild splenomegaly. Pancreas: Diffuse fatty atrophy. Adrenals: Unremarkable Kidneys: No urolithiasis. No hydronephrosis. Bladder: Unremarkable Reproductive Organs: Bowel: Suture anastomosis in the rectum. Appendix: Lymph nodes: Vasculature: Dated extensive atherosclerosis of the abdominal aorta and major visceral branches. Peritoneum / Retroperitoneum: Bones: Degenerative changes of the spine. Grade 1 anterior listhesis of L4 on L5. This is unchanged. CT/Abdomen/Pelvis without Cont IMPRESSION: Diffuse ascites. Subcutaneous edema. Extensive vascular calcification of the abdominal aorta and major visceral bran ches. Calcified hepatic and splenic granulomas. Mild splenomegaly. Reading Location: [place] [id number]
[2025-06-06 13:12] LABS: Differential Indicated SCAN CRITERIA MET
[2025-06-06 13:34] LABS: AST(SGOT) 25 U/L (<=31); Alanine Aminotransfer ALT/SGPT 6 U/L (<=34); Albumin, Serum 3.0 g/dL (3.4-4.8); Alkaline Phosphatase 94 U/L (35-104); Anion Gap 17 (5-15); BUN 73 mg/dL (4-19); BUN/Creat Ratio 17.2 RATIO (10-20); Calcium,Total 8.3 mg/dL (7.6-11.0); Carbon Dioxide 19.4 mmol/L (21.0-32.0); Chloride 93 mmol/L (98-108); Estimated Creatinine Clearance 10.46 ml/min (50-250); Globulin 2.9 g/dL (2.2-4.2); Glucose 141 mg/dL (70-99); Potassium 3.8 mmol/L (3.3-5.1)
[2025-06-06 13:49] LABS: Pro- Brain NATRIURETIC PEPTIDE 64123 pg/mL (<=1800); Troponin T High Sensitivity 294 ng/L (<=14)
[2025-06-06 13:50] LABS: Differential Comment SCANNED
[2025-06-06 13:51] LABS: Anisocytosis 2+; Hypochromasia 1+; Polychromasia 1+
[2025-06-06 13:53] LABS: Macrocytosis 2+
[2025-06-06 16:04] LABS: Troponin T High Sens 2 HR 322 ng/L (<=14)
--- NOTE | 2025-06-06 16:09 | EX.ED.DYSGE1 ---
HPI History of Present Illness Chief Complaint: Edema Narrative Narrative: Patient is a 79-year-old female presenting to the emergency department for abdominal distention, lower back pain and generalized weakness. Patient has a past medical history of mitral valve regurg, anemia, CKD, type 2 diabetes, CHF, pacemaker, A-fib, anasarca. She is not on any blood thinners. Patient was just admitted on 05/24 for an MONIQUE and discharged on 06/01. She is a poor historian and helps provide history. The patient had undergone dialysis twice while admitted and then once since discharge but they have been very short treatments. Patient states that since May 13 her weight has gone up by 25 pounds. States that she feels very bloated but denies any abdominal pain. She states that she has been having lower back pain as well since being admitted to the hospital. She endorses dyspnea with exertion. States this is new as well. Denies fever, chills, chest pain, vomiting. [facility] Medical History MONIQUE (acute kidney injury) Ulcer of left lower extremity with fat layer exposed Anemia of chronic renal failure, stage 3 (moderate) Iron deficiency anemia due to chronic blood loss History of ESBL E. coli infection Type 2 diabetes mellitus Ulcer of left foot with fat layer exposed Ulcer of right foot with fat layer exposed Ulcer of right lower extremity with fat layer exposed Acute on chronic heart failure with preserved ejection fraction Hypokalemia Fatigue Vitamin D deficiency Rheumatoid arthritis Insomnia Mitral valve regurgitation Tachy-lionel syndrome Rheumatic fever GERD (gastroesophageal reflux disease) Chronic renal failure (CRF), stage 3b Cervical cancer Iron deficiency anemia Non-sustained ventricular tachycardia Pulmonary hypertension Rectal bleed Presence of Watchman left atrial appendage closure device Pacemaker Sinus node dysfunction Bradycardia History of cardioversion Skin tear of left forearm without complication Skin cancer Cardiac arrhythmia CHF exacerbation Brain aneurysm Anxiety Family history of brain aneurysm PAD (peripheral artery disease) PAF (paroxysmal atrial fibrillation) Obesity (BMI 30.0-34.9) Laceration of right middle finger Heart disease Diabetes History of cancer Fever HTN (hypertension) Diabetes mellitus type 2 in obese Chest pain, musculoskeletal HLD (hyperlipidemia) URI (upper respiratory infection) Bronchospasm with bronchitis, acute Home Medications ?Medication ?Instructions ?Recorded ?Last Taken ?Type atorvastatin 40 mg tablet 40 mg PO DAILY daily 01/07/25 05/24/25 20:04 History metoprolol succinate 50 mg 50 mg PO BID blood pressure 02/05/25 05/24/25 06:07 History tablet,extended release 24 hr vitamin B complex 1 tab PO QDAY supplement 02/05/25 05/23/25 History ascorbic acid (vitamin C) 500 mg 500 mg PO QDAY supplement 02/14/25 Unknown History tablet aspirin 81 mg tablet,delayed 81 mg PO QDAY heart health 02/14/25 05/24/25 06:03 History release (Adult Aspirin Regimen) pantoprazole 40 mg tablet,delayed 40 mg PO QDAY stomach 02/14/25 05/24/25 06:08 History release polysaccharide iron complex 150 mg 150 mg PO QDAY low iron 02/14/25 05/23/25 History iron capsule (Ferrex) levothyroxine 50 mcg tablet 50 mcg PO DAILY thyroid 03/01/25 05/24/25 History Allergy/AdvReac Type Severity Reaction Status Date / Time propofol AdvReac Mild Low blood Verified 06/06/25 12:02 pressure Family History Father Heart disease High cholesterol Myocardial infarction, Onset Age: 58 Mother Heart disease Surgical History Hx of abdominal surgery History of mastoidectomy History of cardiac radiofrequency ablation history skin cancer surgery history bilateral ear surgeries History of hysterectomy H/O aortic valve replacement Social History household members: spouse number of children: 1 current occupational status: 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 No acute distress. Chronically ill-appearing. HEENT: Head is normocephalic and atraumatic, sinuses nontender, pupils equal round and reactive. Nares are patent. Oropharynx and throat exams normal. Neck: Supple without lymphadenopathy nontender Cardiovascular: Regular rate and rhythm, no murmurs. No rubs or gallops. Normal S1 and S2 Respiratory: Clear to auscultation bilaterally. No wheezes, rales, rhonchi Chest: There is right upper normal chest axis with no surrounding signs of cellulitis or abscess. Abdominal: Abdomen is protuberant and distended with positive fluid wave. There is no tenderness to palpation of the abdomen. Normal bowel sounds. No guarding or rebound. Extremities: Trace bilateral lower extremity edema. No midline thoracic or lumbar spinal tenderness to palpation. No step-offs or deformities. There is bilateral lower lumbar paraspinal tenderness to palpation. No bruising. Normal range of motion. Normal sensation. Skin: No rash or redness. The rest of the physical exam is unremarkable Const Vital Signs: 06/06/25 11:55 06/06/25 12:20 06/06/25 13:55 Temperature 97.4 F L Temperature Source Oral Pulse Rate 74 68 Respiratory Rate 14 13 Respiratory Pattern Normal Blood Pressure 113/89 H 100/63 Blood Pressure Mean 97 75 Pulse Ox 98 Oxygen Delivery Method Room Air 06/06/25 15:00 Temperature Temperature Source Pulse Rate 72 Respiratory Rate 17 Respiratory Pattern Blood Pressure 109/54 L Blood Pressure Mean 72 Pulse Ox 98 Oxygen Delivery Method Room Air MDM MDM MDM Narrative Medical decision making narrative: Patient is a 79-year-old female presenting to the emergency department for abdominal distention, lower back pain and generalized weakness. Patient was seen and examined. Vitals are stable. Patient is resting in bed comfortably in no acute distress. Differential includes but is not limited to: CHF exacerbation, worsening renal failure, ACS, pneumonia, electrolyte abnormality CBC with no leukocytosis and chronic anemia similar to 5 days ago at 9.8. CMP with hyponatremia consistent with her prior labs at 130. Bicarb of 19.4, anion gap of 17, BUN of 73 and creatinine of 4.22 consistent with her prior labs as well and secondary to her kidney disease. Initial troponin of 294, last I have to compare to is February 16, 2025. I expect this is elevated level secondary to her kidney function and will obtain a second reflex level before further evaluating. She is complaining of dyspnea, has no chest pain. Reflex of 322. Initial EKG with a very poor baseline, there is depression in V4 through V6 but no noted ST elevation noted reciprocally. Repeat EKG will be done. Repeat EKG much more readable with no significant artifact. The ST depressions that were previously noted on V4 through V6 have significantly improved and EKG appears to look similar to prior. There is rate controlled A-fib with occasional ventricular paced complexes. Rate of 70. I discussed with Dr. Huynh who agrees with the assessment that the elevated troponin is likely due from a multitude of issues including the renal failure and CHF and is likely not specifically ACS related. Agrees with not starting a heparin drip at this time. Again patient has no chest pain however she does have dyspnea which can be attributed to her CHF. Patient was updated on the lab and imaging findings and recommendation for admission for dialysis, continued telemetry monitoring given the elevated troponin and generalized weakness. She and are agreeable with the plan. Admitted to Dr. Diaz for further management. Clinical impression Chronic anemia CHF Renal failure requiring dialysis Anasarca Elevated troponin History & Record Review Discussion w/independent historian: Patient and Significant other Additional record(s) reviewed:: Prior inpatient record, Prior ED visit and Prior labs Lab Data Attestation: I reviewed the patient's lab results. Labs: Laboratory Results - last 24 hr 06/06/25 06/06/25 13:00 14:57 WBC 8.9 RBC 3.18 L Hgb 9.8 L Hct 31.1 L MCV 97.8 MCH 30.8 MCHC 31.5 L RDW Std Deviation 76.8 H RDW Coeff of Yonis 21.2 H Plt Count 101 L MPV 10.2 Immature Gran % (Auto) 0.700 Neut % (Auto) 74.4 H Lymph % (Auto) 12.5 L Ashley % (Auto) 11.4 H Eos % (Auto) 0.7 Baso % (Auto) 0.3 Absolute Neuts (auto) 6.6 Absolute Lymphs (auto) 1.11 Nucleated RBC % 0 Differential Comment SCANNED Polychromasia 1+ Hypochromasia 1+ Anisocytosis 2+ Macrocytosis 2+ Sodium 130 L Potassium 3.8 Chloride 93 L Carbon Dioxide 19.4 L Anion Gap 17 H BUN 73 H Creatinine 4.22 H Estim Creat Clear Calc 10.46 L Est GFR (MDRD) Non-Af 10 L BUN/Creatinine Ratio 17.2 Glucose 141 H Calcium 8.3 Total Bilirubin 0.85 AST 25 ALT 6 Alkaline Phosphatase 94 Troponin T High Sens 294 H* D Troponin T Hi Sens 2 Hr 322 H* [place] [address] H Total Protein 5.9 Albumin 3.0 L Globulin 2.9 Albumin/Globulin Ratio 1.0 Radiography Diagnostic Testing: Clinical Impression(s) from Imaging Studies Abdomen/Pelvis CT 06/06/25 13:08 IMPRESSION: Diffuse ascites. Subcutaneous edema. Extensive vascular calcification of the abdominal aorta and major visceral branches. Calcified hepatic and splenic granulomas. Mild splenomegaly. Reading Location: [place] [address] Discharge Plan Triage Chief Complaint: Edema ED Provider: Fiona Skeltno Dx/Rx/DC Orders Prescriptions: No Action vitamin B complex Tablet 1 tab PO QDAY metoprolol succinate 50 mg tablet extended release 24 hr 50 mg PO BID polysaccharide iron complex [Ferrex 150] 150 mg iron capsule 150 mg PO QDAY ascorbic acid (vitamin C) 500 mg tablet 500 mg PO QDAY aspirin [Adult Aspirin Regimen] 81 mg tablet,delayed release (DR/EC) 81 mg PO QDAY levothyroxine 50 mcg tablet 50 mcg PO DAILY atorvastatin 40 mg tablet 40 mg PO DAILY pantoprazole 40 mg tablet,delayed release (DR/EC) 40 mg PO QDAY Primary Care Provider: Vincent Flores Chi Referrals: Vincent Flores Chi, MD [Primary Care Provider, Geriatrics] Print Language: Haitian
--- NOTE | 2025-06-06 16:21 | EKG12_ITS ---
Test Reason : ARRYTH Blood Pressure : */* mmHG Vent. Rate : 70 BPM Atrial Rate : * BPM P-R Int : * ms QRS Dur : 118 ms QT Int : 444 ms P-R-T Axes : * -66 226 degrees QTcB Int : 479 ms Atrial fibrillation with occasional ventricular-paced complexes Left axis deviation Left ventricular hypertrophy with QRS widening ( Romhilt-Rayo ) Nonspecific ST and T wave abnormality Prolonged QT Abnormal ECG Confirmed by TORSTEN UGARTE, MIKE ([id number]), publications editor TAMEKA MCKENZIE ([id number]) on 06/08/2025 9:02:59 AM Referred By: Confirmed By: MIKE SARMIENTO MD
[2025-06-06 17:52] LABS: Troponin T High Sens 4 HR 298 ng/L (<=14)
--- NOTE | 2025-06-06 17:52 | ECHOL_ITS ---
Reason For Study Reason For Study: ELEVATED TROPONINS Procedure This was a limited 2D transthoracic echocardiogram. Technically difficult due to patient position. Patient scanned supine due to recent back surgery. Exam performed portable in patient room. Left Ventricle Normal LV size. The left ventricular ejection fraction is 50 %. No regional wall motion abnormalities noted. Right Ventricle Moderately dilated right ventricle. ICD or pacer leads identified within the right ventricle. Normal systolic function. Atria Normal left atrium. Normal right atrium. Mitral Valve Moderate diffuse mitral valve calcification. There is moderate mitral annular calcification. Moderate-Severe (3+) eccentric mitral valve insufficiency. Tricuspid Valve Normal tricuspid valve. Moderate (2+) tricuspid valve insufficiency. Pulmonary artery systolic pressure is 62 mmHg. Moderate pulmonary hypertension. Aortic Valve Bioprosthetic aortic valve. Pulmonic Valve Normal pulmonic valve. Moderate (2+) pulmonic valve insufficiency. Great Vessels Normal aortic root. The pulmonary artery is normal size. The inferior vena cava is dilated. Pericardium/Pleural No pericardial effusion. MMode/2D Measurements & Calculations LVIDd: 5.3 cm IVSd: 0.86 cm LVOT diam: 2.0 cm LVIDs: 3.0 cm LVPWd: 0.89 cm LVOT area: 3.0 cm2 FS: 42.3 % LAV(MOD-bp): 39.6 ml LA A4 area: 18.0 cm2 RA A4 area: 15.0 cm2 LAV(MOD-bp) Indexed: 22.8 ml/m2 LAV(MOD-sp2): 32.7 ml LAV(MOD-sp4): 46.7 ml Doppler Measurements & Calculations TR max aysha: 366.0 cm/sec TR max P.6 mmHg ECHO/Echo, Limited Study Interpretation Summary The left ventricular ejection fraction is 50 %. Normal LV size. Moderately dilated right ventricle. Pulmonary artery systolic pressure is 62 mmHg. Moderate pulmonary hypertension. Ordering Physician: Reed Diaz Referring Physician: Vincent Flores Chi Performed By: Shikha Kapoor RCS
--- NOTE | 2025-06-06 17:52 | PCM.HP.STD ---
HPI - General General Date of Admission: 06/06/25 Date of Service: 06/06/25 Chief Complaint: increased abdominal girth, increased lower extremity swelling. HPI Narrative YAO SANCHES, is a 79 F who presents with the above complaints of increased abdominal girth, increased lower extremity swelling. Patient was just discharged on 01 June with renal failure where she was started on dialysis while she was there. Patient was discharged and completed dialysis session yesterday for about 4 hours. According to the patient and her , her previous sessions in the hospital were brief, roughly 2 hours per their description. But despite that she has had increased abdominal swelling, abdominal girth, increased lower extremity swelling and also today complaining of back pain. Patient presents to the emergency room where she underwent a workup that noted her troponins were elevated from 294-322 298. Patient denies any chest pain. Dr. Huynh of cardiology was notified and felt that was due to volume overload but also affected by her kidney dysfunction. [ ] [facility] Medical History MONIQUE (acute kidney injury) Ulcer of left lower extremity with fat layer exposed Anemia of chronic renal failure, stage 3 (moderate) Iron deficiency anemia due to chronic blood loss History of ESBL E. coli infection Type 2 diabetes mellitus Ulcer of left foot with fat layer exposed Ulcer of right foot with fat layer exposed Ulcer of right lower extremity with fat layer exposed Acute on chronic heart failure with preserved ejection fraction Hypokalemia Fatigue Vitamin D deficiency Rheumatoid arthritis Insomnia Mitral valve regurgitation Tachy-lionel syndrome Rheumatic fever GERD (gastroesophageal reflux disease) Chronic renal failure (CRF), stage 3b Cervical cancer Iron deficiency anemia Non-sustained ventricular tachycardia Pulmonary hypertension Rectal bleed Presence of Watchman left atrial appendage closure device Pacemaker Sinus node dysfunction Bradycardia History of cardioversion Skin tear of left forearm without complication Skin cancer Cardiac arrhythmia CHF exacerbation Brain aneurysm Anxiety Family history of brain aneurysm PAD (peripheral artery disease) PAF (paroxysmal atrial fibrillation) Obesity (BMI 30.0-34.9) Laceration of right middle finger Heart disease Diabetes History of cancer Fever HTN (hypertension) Diabetes mellitus type 2 in obese Chest pain, musculoskeletal HLD (hyperlipidemia) URI (upper respiratory infection) Bronchospasm with bronchitis, acute Home Medications ?Medication ?Instructions ?Recorded ?Last Taken ?Type atorvastatin 40 mg tablet 40 mg PO DAILY daily 01/07/25 05/24/25 20:04 History metoprolol succinate 50 mg 50 mg PO BID blood pressure 02/05/25 05/24/25 06:07 History tablet,extended release 24 hr vitamin B complex 1 tab PO QDAY supplement 02/05/25 05/23/25 History ascorbic acid (vitamin C) 500 mg 500 mg PO QDAY supplement 02/14/25 Unknown History tablet aspirin 81 mg tablet,delayed 81 mg PO QDAY heart health 02/14/25 05/24/25 06:03 History release (Adult Aspirin Regimen) pantoprazole 40 mg tablet,delayed 40 mg PO QDAY stomach 02/14/25 05/24/25 06:08 History release polysaccharide iron complex 150 mg 150 mg PO QDAY low iron 02/14/25 05/23/25 History iron capsule (Ferrex) levothyroxine 50 mcg tablet 50 mcg PO DAILY thyroid 03/01/25 05/24/25 History Allergy/AdvReac Type Severity Reaction Status Date / Time propofol AdvReac Mild Low blood Verified 06/06/25 12:02 pressure Family History Father Heart disease High cholesterol Myocardial infarction, Onset Age: 58 Mother Heart disease Surgical History Hx of abdominal surgery History of mastoidectomy History of cardiac radiofrequency ablation history skin cancer surgery history bilateral ear surgeries History of hysterectomy H/O aortic valve replacement Social History household members: spouse number of children: 1 current occupational status: retired 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 All review of systems were negative except as mentioned above in the history of present illness and the other review of systems. Vital Signs Vital Signs Vital Signs: 06/06/25 11:55 06/06/25 12:20 06/06/25 13:55 Temperature 36.3 C L Temperature Source Oral Pulse Rate 74 68 Respiratory Rate 14 13 Respiratory Pattern Normal Blood Pressure 113/89 H 100/63 Blood Pressure Mean 97 75 Pulse Ox 98 Oxygen Delivery Method Room Air 06/06/25 15:00 06/06/25 17:00 Temperature Temperature Source Pulse Rate 72 72 Respiratory Rate 17 15 Respiratory Pattern Blood Pressure 109/54 L 121/49 H Blood Pressure Mean 72 73 Pulse Ox 98 Oxygen Delivery Method Room Air Weight Weight: 74.616 kg Body Mass Index (BMI) 29.1 Physical Exam Const Constitutional Narrative: Seen in the emergency room and patient is on room air and with pulse ox in the 90s. No respiratory distress. No conversational dyspnea. She had difficulty sitting up on her own which required myself as well as her to help set her up. HEENT normocephalic and head/scalp atraumatic Resp normal respiratory effort, no retractions, no use of accessory muscles and clear to auscultation bilaterally Resp Narrative: Small area of flail chest on the right. No palpable ribs in that region. Midsternal sternotomy scar. Tunneled dialysis catheter in right upper chest. Cardio regular rate, regular rhythm, S1 normal heart sound and S2 normal heart sound GI GI Narrative: Distended but not taut. Normal bowel sounds. Extremity Extremity Narrative: Tight lower extremity edema bilaterally. Neuro moves all extremities Sensorium / Orientation: awake and alert Psych affect normal Results Lab / Micro Data Lab results narrative: Chest x-ray personally reviewed and showed bilateral pulmonary vascular congestion. 06/06/25 13:00 06/06/25 13:00 Labs: Laboratory Results - last 24 hr 06/06/25 13:00: WBC 8.9, RBC 3.18 L, Hgb 9.8 L, Hct 31.1 L, MCV 97.8, MCH 30.8, MCHC 31.5 L, RDW Std Deviation 76.8 H, RDW Coeff of Yonis 21.2 H, Plt Count 101 L, MPV 10.2, Immature Gran % (Auto) 0.700, Neut % (Auto) 74.4 H, Lymph % (Auto) 12.5 L, Craig % (Auto) 11.4 H, Eos % (Auto) 0.7, Baso % (Auto) 0.3, Absolute Neuts (auto) 6.6, Absolute Lymphs (auto) 1.11, Nucleated RBC % 0, Differential Comment SCANNED, Polychromasia 1+, Hypochromasia 1+, Anisocytosis 2+, Macrocytosis 2+, Sodium 130 L, Potassium 3.8, Chloride 93 L, Carbon Dioxide 19.4 L, Anion Gap 17 H, BUN 73 H, Creatinine 4.22 H, Estim Creat Clear Calc 10.46 L, Est GFR (MDRD) Non-Af 10 L, BUN/Creatinine Ratio 17.2, Glucose 141 H, Calcium 8.3, Total Bilirubin 0.85, AST 25, ALT 6, Alkaline Phosphatase 94, Troponin T High Sens 294 H* D, [place] [address] H, Total Protein 5.9, Albumin 3.0 L, Globulin 2.9, Albumin/Globulin Ratio 1.0 06/06/25 14:57: Troponin T Hi Sens 2 Hr 322 H* EKG Initial EKG: Attestation: I personally reviewed and interpreted this EKG as follows: Prior EKG tracings: available for review EKG Rhythm Intrepretation: Atrial Fibrillation Imaging Radiology Impression Abdomen/Pelvis CT 06/06/25 13:08 IMPRESSION: Diffuse ascites. Subcutaneous edema. Extensive vascular calcification of the abdominal aorta and major visceral branches. Calcified hepatic and splenic granulomas. Mild splenomegaly. Reading Location: [facility] Assessment & Plan Assessment/Plan (1) Anasarca: PLAN: Patient with HFpEF and but primarily this is driven by her end-stage renal disease. Weight has gone up roughly 7 kg since discharge. Patient did receive IV furosemide in the emergency room but patient does not urinate much so not sure that skin to be could have affected but I will continue with the IV furosemide to see if we can mobilize fluids but ultimately I feel the patient does need dialysis. Patient is otherwise stable and on room air and does not require emergent dialysis at this time. Will consult nephrology to continue with dialysis. (2) Elevated troponin I level: PLAN: Likely demand ischemia related with her volume overload and CHF. Will check an echocardiogram. Patient did have echocardiogram on January 08 of this year that showed EF of 50%. If there are new worsening changes then would consult cardiology. Cardiology had been notified by the emergency room and did not recommend anticoagulation at this time. Advise caution if anticoagulation is necessary given her history of GI bleeds. (3) Debility: PLAN: PT OT evaluate and treat. Case management to assist with disposition PLAN: Plan Flail chest: Chronic. Patient has been do not know quite how long that has been present but CAT scan from 25 May noted resection of the anterior aspect of the mid right medial rib. I suspect related with the patient's history of aortic valve replacement. Hypothyroidism: Continue with levothyroxine Atrial fibrillation: Continue with metoprolol succinate. Status post Watchman device. Not on anticoagulation due to history of GI bleeds. Reviewed Dr. Huynh note from February of this year. 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 Tunneled dialysis catheter placed last admission. VTE prophylaxis with subcu heparin CODE STATUS: Addressed with patient. Patient DNR Comfort Care arrest no intubation. Did discuss with she and her that that they can change her mind at any time just notify us and we can easily change that. Discussed with the patient's at bedside Charges/Coding Visit Charges Inpatient E&M: 98237 Init Hosp L3
[2025-06-06] MEDS: Heparin Injection (Vial) 5,000 UNIT/ML VIAL 5000 UNIT SC (21:44)
[2025-06-06] MEDS: Metoprolol(XL)Succ 50 MG Tablet PO (21:46)
[2025-06-07] VITALS (22 sets, daily range): BP systolic 89–136; BP diastolic 38–60; PULSE 56–80; RESP 14–20; TEMP 36–36.6; O2SAT 94–100; BMI 27.2; BMI 27.6; BMI 26.4
--- NOTE | 2025-06-07 05:18 | PCM.HOSP.N ---
Hospitalist Note The nurse informed me that patient did not had urine output. Earlier she was admitted for anasarca, CHF exacerbation. 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 But this time she even after multiple attempts of straight cath, she is dry with no urge to void. Normal saline 500 mL is ordered as fluid challenge. She is due for dialysis today.
[2025-06-07] MEDS: 0.9% Saline Lock 10 ML Syringe IV ×2 (06:15→12:52)
[2025-06-07] MEDS: 0.9% Normal Saline (500mL Bag) 500 ML IV (06:16)
[2025-06-07 06:33] LABS: Hematocrit 31.3 % (37-47); Hemoglobin 10.1 g/dL (12.0-15.0); Immature Granulocytes Count 0.080 X10^3/uL (0.0-0.0); Mean Corp Hgb Conc 32.3 g/dL (32-36); Mean Corpuscular Volume 94.8 fL (81-99); Mean Platelet Vol. 10.6 fl (6.2-12.0); NRBC Flagged by Analyzer 0 % (0-5); POSITIVE MORPHOLOGY YES; Platelet Count 110 K/mm3 (150-450); RBC Distribution Width CV 20.7 % (11.6-14.6); RBC Distribution Width SD 72.0 fl (35.1-43.9); Red Blood Count 3.30 M/mm3 (4.2-5.4); White Blood Count 12.6 K/mm3 (4.4-11.0)
[2025-06-07 06:59] LABS: Anion Gap 17 (5-15); BUN 77 mg/dL (4-19); BUN/Creat Ratio 17.2 RATIO (10-20); Calcium,Total 8.4 mg/dL (7.6-11.0); Carbon Dioxide 19.9 mmol/L (21.0-32.0); Chloride 93 mmol/L (98-108); Differential Indicated SCAN CRITERIA MET; Estimated Creatinine Clearance 9.65 ml/min (50-250); Glucose 116 mg/dL (70-99); Potassium 4.0 mmol/L (3.3-5.1)
[2025-06-07 07:03] LABS: Anisocytosis 2+
[2025-06-07] MEDS: Lidocaine 5% Patch 1 PATCH TOPICAL (08:03)
--- NOTE | 2025-06-07 09:10 | NUR.TO.PHY ---
Discussed case with barrow worker helper, Dr. Mcgarry. The patient was deemed safe for discharge last Friday 06/01 with first outpatient HD set up for 06/05, as [facility] stated that they could not start patient on Sat 06/02 due to staffing. However, Dialysis Coordinator at [facility] was informed that pt did attend outpatient HD on Wed, but the patient only received 1.5hrs of HD at outpatient- reason unknown. So, essentially, the patient has received no significant HD tx since she last received at [facility] on 06/01. This Dialysis Coordinator will continue to investigate further.
[2025-06-07] MEDS: 0.9% Normal Saline 1,000 ML IV.SOLN. 1000 ML OPERA.SITE (09:15)
[2025-06-07] MEDS: PureFlow B 3K Dialysis Soln 1 BAG 6 BAG PF (09:15)
[2025-06-07] MEDS: Aspirin E.C. 81 MG Tablet PO (13:50)
[2025-06-07] MEDS: Vitamin B Comp W-C Capsule 1 CAP PO (13:50)
--- NOTE | 2025-06-07 14:34 | PN_ITS ---
Subjective Subjective Patient seen and examined with her nurse by her bedside. She was undergoing dialysis. She had no active complaints. She denied any shortness of breath, cough, chest pain, palpitations, dizziness, nausea or vomiting. Review of systems otherwise negative. She is on room air. Objective Data Objective Data Vital Signs: Vital Signs Temp Pulse Resp BP Pulse Ox O2 Del Method 96.8 F L 80 18 136/60 H 100 Room Air 06/07/25 13:54 06/07/25 13:54 06/07/25 13:54 06/07/25 13:54 06/07/25 13:54 06/07/25 13:54 Oxygen Delivery Method Room Air Weight: 149 lb 7.574 oz Body Mass Index (BMI) 26.4 Intake & Output: Intake and Output for Last 24 Hours 06/05/25 06/06/25 06/07/25 23:59 23:59 23:59 Intake Total 740 / 740 Output Total 2961 / 2961 Balance -2221 / -2221 Lab / Micro Data 06/07/25 05:34 06/07/25 05:34 Labs: Laboratory Results - last 24 hr 06/06/25 14:57: Troponin T Hi Sens 2 Hr 322 H* 06/06/25 16:56: Troponin T Hi Sens 4Hr 298 H* 06/07/25 05:34: WBC 12.6 H, RBC 3.30 L, Hgb 10.1 L, Hct 31.3 L, MCV 94.8, MCH 30.6, MCHC 32.3, RDW Std Deviation 72.0 H, RDW Coeff of Yonis 20.7 H, Plt Count 110 L, MPV 10.6, Immature Gran % (Auto) 0.600, Neut % (Auto) 78.0 H, Lymph % (Auto) 9.4 L, [place] % (Auto) 10.9 H, Eos % (Auto) 0.7, Baso % (Auto) 0.4, A bsolute Neuts (auto) 9.9 H, Absolute Lymphs (auto) 1.19, Nucleated RBC % 0, Anisocytosis 2+, Sodium 129 L, Potassium 4.0, Chloride 93 L, Carbon Dioxide 19.9 L, Anion Gap 17 H, BUN 77 H, Creatinine 4.46 H, Estim Creat Clear Calc 9.65 L*, Est GFR (MDRD) Non-Af 10 L, BUN/Creatinine Ratio 17.2, Glucose 116 H, Calcium 8.4 Physical Exam Const alert, oriented x3 and no apparent distress Constitutional Narrative: frail HEENT normocephalic, head/scalp atraumatic, moist oral mucous membranes and oropharynx normal Eyes EOMs intact bilaterally Neck supple and no JVD Lymph Lymphatic: no lymphedema noted Resp Resp Narrative: mildly diminished breath sounds bibasally, no wheezes or crackles. On room air. Cardio regular rate, regular rhythm, S1 normal heart sound, S2 normal heart sound and no murmurs Peripheral Pulses: pulses 2+ throughout GI normal to inspection, nondistended, normoactive bowel sounds, soft to palpation and non-tender Extremity normal capillary refill Extremity Narrative: bilateral 2+ pitting pedal edema of upper thighs; also has abdominal wall pitting edema. flail chest on right side General Extremity: no tenderness to palpation of joints or extremities Skin Skin Narrative: has ecchymotic patch over chest region, around dialysis catheter site. General Skin Exam: no breakdown Neuro no focal motor deficits and no sensory deficits noted Motor Exam: general weakness Psych thought process normal, cooperative and affect normal Appearance: appropriate Assessment & Plan Assessment/Plan (1) Debility: (2) ESRD (end stage renal disease): PLAN: Plan #Fluid overload with anasarca due to heart failure preserved ejection fraction and ESRD * Patient was recently started on dialysis. She had 1 dialysis session last Wednesday. Her only dialysis session after that was this past Wednesday which was 1 for just 1-1/2 hours. When she was started on dialysis she was run for 4 hours. * Patient came in with shortness of breath and anasarca. Found to be markedly fluid overloaded. * She was given Lasix but she has not made any urine at all. * Troponins were also elevated but there is a question of if this is likely due to decreased clearance from the ESRD. * Titrate oxygen as needed to maintain saturation above 90%. * Nephrology consulted. Having dialysis today and this will help with fluid removal as she is likely making urine with the Lasix. * #Elevated troponins: Likely due to reduced clearance. 2D echo ordered. Has known EF of 50% from 2D echo from January of this year. #Atrial fibrillation: On metoprolol. S/p Watchman device. 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 Will monitor DVT prophylaxis: heparin Code status: DNRCCA no intubation # Charges/Coding Visit Charges Inpatient E&M: 03387 Subs Hosp L2
--- NOTE | 2025-06-07 21:38 | CON.PCM.RE_ITS ---
Assessment & Plan Assessment/Plan (1) MONIQUE (acute kidney injury): PLAN: Acute renal failure CKD stage IV Congestive heart failure Recently started dialysis due to advanced azotemia and fluid overload. Fluid overload did get better. Even now her main complaint is abdominal bloating and low back pain. Some component of fluid overload. Dialysis today, will plan to remove about 3 to 4 L of fluid. She had dialysis on Wednesday, it looks like about 1.5 L was removed. Will reassess for UF tomorrow. HPI Consult Data Date of Consult: 06/07/25 HPI Narrative Reason for Consultation: MONIQUE HD dependent HPI Narrative: YAO SANCHES, Is a 79-year-old female who is known to me from recent admission and office. She has known history of CKD stage IV, baseline creatinine around 2.6 or so. She was recently admitted here with fluid overload, was started on dialysis. Was discharged home over the weekend. Had dialysis on Wednesday. Came in with shortness of breath, abdominal distention, low back pain. Has moderate amount of lower extremity edema, abdominal is bloated. Back pain is new. [facility] Medical History MONIQUE (acute kidney injury) Ulcer of left lower extremity with fat layer exposed Anemia of chronic renal failure, stage 3 (moderate) Iron deficiency anemia due to chronic blood loss History of ESBL E. coli infection Type 2 diabetes mellitus Ulcer of left foot with fat layer exposed Ulcer of right foot with fat layer exposed Ulcer of right lower extremity with fat layer exposed Acute on chronic heart failure with preserved ejection fraction Hypokalemia Fatigue Vitamin D deficiency Rheumatoid arthritis Insomnia Mitral valve regurgitation Tachy-lionel syndrome Rheumatic fever GERD (gastroesophageal reflux disease) Chronic renal failure (CRF), stage 3b Cervical cancer Iron deficiency anemia Non-sustained ventricular tachycardia Pulmonary hypertension Rectal bleed Presence of Watchman left atrial appendage closure device Pacemaker Sinus node dysfunction Bradycardia History of cardioversion Skin tear of left forearm without complication Skin cancer Cardiac arrhythmia CHF exacerbation Brain aneurysm Anxiety Family history of brain aneurysm PAD (peripheral artery disease) PAF (paroxysmal atrial fibrillation) Obesity (BMI 30.0-34.9) Laceration of right middle finger Heart disease Diabetes History of cancer Fever HTN (hypertension) Diabetes mellitus type 2 in obese Chest pain, musculoskeletal HLD (hyperlipidemia) URI (upper respiratory infection) Bronchospasm with bronchitis, acute Home Medications ?Medication ?Instructions ?Recorded ?Last Taken ?Type atorvastatin 40 mg tablet 40 mg PO DAILY daily 5 06/05/25 History metoprolol succinate 50 mg 50 mg PO BID blood pressure 02/05/25 06/06/25 History tablet,extended release 24 hr vitamin B complex 1 tab PO QDAY supplement 10/2706/06/25 History ascorbic acid (vitamin C) 500 mg 500 mg PO QDAY supple ment 02/14/25 06/05/25 History tablet aspirin 81 mg tablet,delayed 81 mg PO QDAY heart healt h 02/14/25 06/06/25 History release (Adult Aspirin Regimen) pantoprazole 40 mg tablet,delayed 40 mg PO QDAY stomac h 02/14/25 06/06/25 History release polysaccharide iron complex 150 mg 150 mg PO QDAY low iron 02/14/25 06/05/25 History iron capsule (Ferrex) levothyroxine 50 mcg tablet 50 mcg PO DAILY thyroid 06/06/25 History Allergy/AdvReac Type Severity Reaction Status Date / Time propofol AdvReac Mild Low blood Verified 06/06/25 12:02 pressure Family History Father Heart disease High cholesterol Myocardial infarction, Onset Age: 58 Mother Heart disease Surgical History Hx of abdominal surgery History of mastoidectomy History of cardiac radiofrequency ablation history skin cancer surgery history bilateral ear surgeries History of hysterectomy H/O aortic valve replacement Social History household members: spouse number of children: 1 current occupational status: retired 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 Smoking Status: Former smoker Tobacco: How many years used: 1 alcohol intake: current alcohol intake frequency: holidays/special occasions only Alcohol type: wine substance use type: does not use ROS ROS Narrative negative except above Physical Exam Narrative Alert awake oriented x 3 no obvious distress no pallor no icterus no JVD s1s2 no murmurs lungs clear abdomen soft no organomegaly Lab / Micro Data 06/07/25 05:34 06/07/25 05:34 Labs: Laboratory Results - last 24 hr 06/07/25 05:34: WBC 12.6 H, RBC 3.30 L, Hgb 10.1 L, Hct 31.3 L, MCV 94.8, MCH 30.6, MCHC 32.3, RDW Std Deviation 72.0 H, RDW Coeff of Yonis 20.7 H, Plt Count 110 L, MPV 10.6, Immature Gran % (Auto) 0.600, Neut % (Auto) 78.0 H, Lymph % (Auto) 9.4 L, [place] % (Auto) 10.9 H, Eos % (Auto) 0.7, Baso % (Auto) 0.4, A bsolute Neuts (auto) 9.9 H, Absolute Lymphs (auto) 1.19, Nucleated RBC % 0, Anisocytosis 2+, Sodium 129 L, Potassium 4.0, Chloride 93 L, Carbon Dioxide 19.9 L, Anion Gap 17 H, BUN 77 H, Creatinine 4.46 H, Estim Creat Clear Calc 9.65 L*, Est GFR (MDRD) Non-Af 10 L, BUN/Creatinine Ratio 17.2, Glucose 116 H, Calcium 8.4 Imaging Radiology Impression Echocardiogram 06/06/25 17:52 Interpretation Summary The left ventricular ejection fraction is 50 %. Normal LV size. Moderately dilated right ventricle. Pulmonary artery systolic pressure is 62 mmHg. Moderate pulmonary hypertension. Ordering Physician: Reed Diaz Referring Physician: Vincent Flores Chi Performed By: Shikha Kapoor RCS
[2025-06-07] MEDS: Metoprolol(XL)Succ 50 MG Tablet PO (22:33)
[2025-06-07] MEDS: Heparin Injection (Vial) 5,000 UNIT/ML VIAL 5000 UNIT SC (22:33)
[2025-06-08] VITALS (11 sets, daily range): BP systolic 105–129; BP diastolic 39–67; PULSE 71–90; RESP 14–22; TEMP 36.3–36.6; O2SAT 92–100; BMI 26.2; BMI 27.6; BMI 26.8
[2025-06-08 06:12] LABS: Hematocrit 29.8 % (37-47); Hemoglobin 9.7 g/dL (12.0-15.0); Immature Granulocytes Count 0.040 X10^3/uL (0.0-0.0); Mean Corp Hgb Conc 32.6 g/dL (32-36); Mean Corpuscular Volume 96.4 fL (81-99); Mean Platelet Vol. 10.6 fl (6.2-12.0); NRBC Flagged by Analyzer 0 % (0-5); POSITIVE COUNT YES; POSITIVE MORPHOLOGY YES; RBC Distribution Width CV 21.2 % (11.6-14.6); RBC Distribution Width SD 73.8 fl (35.1-43.9); Red Blood Count 3.09 M/mm3 (4.2-5.4); White Blood Count 9.2 K/mm3 (4.4-11.0)
[2025-06-08 06:25] LABS: Differential Indicated SCAN CRITERIA MET
[2025-06-08 06:41] LABS: Anion Gap 13 (5-15); BUN 51 mg/dL (4-19); BUN/Creat Ratio 15.3 RATIO (10-20); Calcium,Total 8.2 mg/dL (7.6-11.0); Carbon Dioxide 21.5 mmol/L (21.0-32.0); Chloride 96 mmol/L (98-108); Estimated Creatinine Clearance 12.69 ml/min (50-250); Glucose 175 mg/dL (70-99); Potassium 4.0 mmol/L (3.3-5.1)
[2025-06-08] MEDS: Heparin Injection (Vial) 5,000 UNIT/ML VIAL 5000 UNIT SC ×2 (08:47→22:11)
[2025-06-08] MEDS: 0.9% Saline Lock 10 ML Syringe IV ×4 (08:47→22:18)
[2025-06-08] MEDS: Vitamin B Comp W-C Capsule 1 CAP PO (08:48)
[2025-06-08] MEDS: Aspirin E.C. 81 MG Tablet PO (08:49)
[2025-06-08] MEDS: Lidocaine 5% Patch 1 PATCH TOPICAL (09:05)
[2025-06-08] MEDS: 0.9% Normal Saline 1,000 ML IV.SOLN. 1000 ML OPERA.SITE (10:19)
--- NOTE | 2025-06-08 11:57 | PN_ITS ---
Subjective Subjective Patient seen and examined with her nurse by her bedside. She has no active complaints. Review of systems otherwise negative. She is more alert and awake today. She is for dialysis again today. Objective Data Objective Data Vital Signs: Vital Signs Temp Pulse Resp BP Pulse Ox O2 Del Method 97.7 F L 75 14 112/39 L 100 Room Air 06/08/25 09:55 06/08/25 11:30 06/08/25 09:55 06/08/25 11:30 06/08/25 09:55 06/08/25 09:55 Oxygen Delivery Method Room Air Weight: 156 lb 1.396 oz Body Mass Index (BMI) 27.6 Intake & Output: Intake and Output for Last 24 Hours 06/06/25 06/07/25 06/08/25 23:59 23:59 23:59 Intake Total 1100 / 1100 60 / 60 Output Total 2961 / 2961 Balance -1861 / -1861 60 / 60 Lab / Micro Data 06/08/25 05:37 06/08/25 05:37 Labs: Laboratory Results - last 24 hr 06/08/25 05:37: WBC 9.2, RBC 3.09 L, Hgb 9.7 L, Hct 29.8 L, MCV 96.4, MCH 31.4, MCHC 32.6, RDW Std Deviation 73.8 H, RDW Coeff of Yonis 21.2 H, Plt Count TNP, MPV 10.6, Immature Gran % (Auto) 0.400, Neut % (Auto) 72.0 H, Lymph % (Auto) 13.7 L, [place] % (Auto) 12.7 H, Eos % (Auto) 0.9, Baso % (Auto) 0.3, Absolute Neuts (auto) 6.6, Absolute Lymphs (auto) 1.26, Nucleated RBC % 0, Platelet Estimate SLT DEC, Sodium 131 L, Potassium 4.0, Chloride 96 L, Carbon Dioxide 21.5, Anion Gap 13, B UN 51 H, Creatinine 3.31 H, Estim Creat Clear Calc 12.69 L, Est GFR (MDRD) Non- Af 14 L, BUN/Creatinine Ratio 15.3, Glucose 175 H, Calcium 8.2 Radiography Diagnostic Testing: Radiology Impression Echocardiogram 06/06/25 17:52 Interpretation Summary The left ventricular ejection fraction is 50 %. Normal LV size. Moderately dilated right ventricle. Pulmonary artery systolic pressure is 62 mmHg. Moderate pulmonary hypertension. Ordering Physician: Reed Diaz Referring Physician: Vincent Flores Chi Performed By: Shikha Kapoor RCS Physical Exam Const alert, oriented x3 and no apparent distress Constitutional Narrative: frail HEENT normocephalic, head/scalp atraumatic, moist oral mucous membranes and oropharynx normal Eyes EOMs intact bilaterally Neck supple and no JVD Lymph Lymphatic: no lymphedema noted Resp Resp Narrative: mildly diminished breath sounds bibasally, no wheezes or crackles. On room air. Cardio regular rate, regular rhythm, S1 normal heart sound, S2 normal heart sound and no murmurs Peripheral Pulses: pulses 2+ throughout GI normal to inspection, nondistended, normoactive bowel sounds, soft to palpation and non-tender Extremity normal capillary refill Extremity Narrative: bilateral 2+ pitting pedal edema of upper thighs; also has abdominal wall pitting edema. flail chest on right side General Extremity: no tenderness to palpation of joints or extremities Skin Skin Narrative: has ecchymotic patch over chest region, around dialysis catheter site. General Skin Exam: no breakdown Neuro moves all extremities, no focal motor deficits and no sensory deficits noted Sensorium / Orientation: awake and alert Motor Exam: general weakness Psych thought process normal, cooperative and affect normal Appearance: appropriate Assessment & Plan Assessment/Plan (1) Debility: (2) ESRD (end stage renal disease): PLAN: Plan #Fluid overload with anasarca due to heart failure preserved ejection fraction and ESRD * Patient was recently started on dialysis. She had 1 dialysis session last Wednesday. Her only dialysis session after that was this past Wednesday which was 1 for just 1-1/2 hours. When she was started on dialysis she was run for 4 hours. * Patient came in with shortness of breath and anasarca. Found to be markedly fluid overloaded. * She was given Lasix but she has not made any urine at all. * Troponins were also elevated but there is a question of if this is likely due to decreased clearance from the ESRD. * Titrate oxygen as needed to maintain saturation above 90%. * Nephrology on board. Had dialysis yesterday and is due for dialysis today also. Lasix stopped as she is not making any urine * * #Elevated troponins: * Likely due to reduced renal clearance. Has known EF of 50% from 2D echo from January of this year. * 2D echo this admission showed EF of 50% with normal ventricular size with moderately dilated right ventricle pulm artery systolic pressure 62 mmHg. #Atrial fibrillation: On metoprolol. S/p Watchman device. 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 Will monitor DVT prophylaxis: heparin Code status: DNRCCA no intubation Charges/Coding Visit Charges Inpatient E&M: 99833 Subs Hosp L2
--- NOTE | 2025-06-08 15:00 | CASEMGMT ---
Discharge Planning A list of?HH providers including quality and resource use data and consistent with the patient's preferred geographic region, medical needs, and insurance network was created in [facility].? This list was provided to the RN JOSUÉ. Leslye Thornton, Discharge Planning Asst.
--- NOTE | 2025-06-08 15:17 | CASEMGMT ---
RN CM reviewed progress with therapy, recommending additional therapy. RN CM in to discuss with patient, patient preferred RN CM call . RN CM called Natanael to discuss discharge planning and discussed possible HHC. denies need for HHC at this time. HHC list provided in patient's discharge folder should they reconsider, voiced understanding. denied further needs or concerns.
--- NOTE | 2025-06-08 16:36 | PN.RENAL_ITS ---
Subjective Subjective No near complete Objective Data Objective Data Vital Signs: Vital Signs Temp Pulse Resp BP Pulse Ox O2 Del Method 97.7 F L 71 18 107/41 L 100 Room Air 06/08/25 12:17 06/08/25 12:17 06/08/25 12:17 06/08/25 12:17 06/08/25 12:17 06/08/25 14:25 Oxygen Delivery Method Room Air Weight: 68.6 kg Body Mass Index (BMI) 26.8 Intake & Output: Intake and Output for Last 24 Hours 06/06/25 06/07/25 06/08/25 23:59 23:59 23:59 Intake Total 1100 / 1100 300 / 300 Output Total 2961 / 2961 2150 / 2150 Balance -1861 / -1861 -1850 / -1850 Lab / Micro Data 06/08/25 05:37 06/08/25 05:37 Labs: Laboratory Results - last 24 hr 06/08/25 05:37: WBC 9.2, RBC 3.09 L, Hgb 9.7 L, Hct 29.8 L, MCV 96.4, MCH 31.4, MCHC 32.6, RDW Std Deviation 73.8 H, RDW Coeff of Yonis 21.2 H, Plt Count TNP, MPV 10.6, Immature Gran % (Auto) 0.400, Neut % (Auto) 72.0 H, Lymph % (Auto) 13.7 L, [place] % (Auto) 12.7 H, Eos % (Auto) 0.9, Baso % (Auto) 0.3, Absolute Neuts (auto) 6.6, Absolute Lymphs (auto) 1.26, Nucleated RBC % 0, Platelet Estimate SLT DEC, Sodium 131 L, Potassium 4.0, Chloride 96 L, Carbon Dioxide 21.5, Anion Gap 13, B UN 51 H, Creatinine 3.31 H, Estim Creat Clear Calc 12.69 L, Est GFR (MDRD) Non- Af 14 L, BUN/Creatinine Ratio 15.3, Glucose 175 H, Calcium 8.2 Physical Exam Narrative Alert awake oriented x 3 no obvious distress no pallor no icterus no JVD s1s2 no murmurs lungs clear abdomen soft no organomegaly Assessment & Plan Assessment/Plan (1) MONIQUE (acute kidney injury): PLAN: Acute renal failure CKD stage IV Congestive heart failure UF today, fluid removal up to 2-1/2 L. Had severe cramping end of treatment. Breathing looks comfortable on room air. Will plan for hemodialysis tomorrow
[2025-06-08] MEDS: Metoprolol(XL)Succ 50 MG Tablet PO (22:11)
[2025-06-09] VITALS (14 sets, daily range): BP systolic 108–136; BP diastolic 46–62; PULSE 67–87; RESP 14–22; TEMP 36.4–36.7; O2SAT 96–99; BMI 27.1; BMI 26.9; BMI 26.5
[2025-06-09 05:25] LABS: Hematocrit 29.6 % (37-47); Hemoglobin 9.8 g/dL (12.0-15.0); Immature Granulocytes Count 0.060 X10^3/uL (0.0-0.0); Mean Corp Hgb Conc 33.1 g/dL (32-36); Mean Corpuscular Volume 94.6 fL (81-99); Mean Platelet Vol. 10.3 fl (6.2-12.0); NRBC Flagged by Analyzer 0 % (0-5); POSITIVE COUNT YES; POSITIVE MORPHOLOGY YES; Platelet Count 95 K/mm3 (150-450); RBC Distribution Width CV 21.0 % (11.6-14.6); RBC Distribution Width SD 72.4 fl (35.1-43.9); Red Blood Count 3.13 M/mm3 (4.2-5.4); White Blood Count 8.8 K/mm3 (4.4-11.0)
[2025-06-09 05:56] LABS: Anion Gap 14 (5-15); BUN 60 mg/dL (4-19); BUN/Creat Ratio 14.8 RATIO (10-20); Calcium,Total 8.3 mg/dL (7.6-11.0); Carbon Dioxide 20.7 mmol/L (21.0-32.0); Chloride 95 mmol/L (98-108); Estimated Creatinine Clearance 10.47 ml/min (50-250); Glucose 120 mg/dL (70-99); Potassium 3.9 mmol/L (3.3-5.1)
[2025-06-09 06:19] LABS: Differential Indicated SCAN CRITERIA MET
[2025-06-09 06:28] LABS: Anisocytosis 2+
--- NOTE | 2025-06-09 11:14 | PN_ITS ---
Subjective Subjective Patient seen and examined with her nurse by her bedside. She has no active complaints today. She had an uneventful night. Review of systems otherwise negative. She is due for dialysis again today. Objective Data Objective Data Vital Signs: Vital Signs Temp Pulse Resp BP Pulse Ox O2 Del Method 97.5 F L 79 22 H 120/47 L 96 Room Air 06/09/25 09:30 06/09/25 09:30 06/09/25 09:30 06/09/25 09:30 06/09/25 09:30 06/09/25 09:30 Oxygen Delivery Method Room Air Weight: 153 lb 0.013 oz Body Mass Index (BMI) 27.1 Intake & Output: Intake and Output for Last 24 Hours 06/07/25 06/08/25 06/09/25 23:59 23:59 23:59 Intake Total 1100 / 1100 360 / 360 30 Output Total 2961 / 2961 2150 / 2150 Balance -1861 / -1861 -1790 / -1790 Lab / Micro Data 06/09/25 05:07 06/09/25 05:07 Labs: Laboratory Results - last 24 hr 06/09/25 05:07: WBC 8.8, RBC 3.13 L, Hgb 9.8 L, Hct 29.6 L, MCV 94.6, MCH 31.3, MCHC 33.1, RDW Std Deviation 72.4 H, RDW Coeff of Yonis 21.0 H, Plt Count 95 L, MPV 10.3, Immature Gran % (Auto) 0.700, Neut % (Auto) 69.8, Lymph % (Auto) 15.2 L, [place] % (Auto) 12.3 H, Eos % (Auto) 1.5, Baso % (Auto) 0.5, Absolute Neuts (auto) 6.2, Absolute Lymphs (auto) 1.34, Nucleated RBC % 0, Platelet Estimate MOD DEC, Anisocytosis 2+, Sodium 130 L, Potassium 3.9, Chloride 95 L, Carbon Dioxide 20.7 L, Anion Gap 14, BUN 60 H, Creatinine 4.05 H, Estim Creat Clear Calc 10.47 L, Est GFR (MDRD) Non-Af 11 L, BUN/Creatinine Ratio 14.8, Glucose 120 H, Calcium 8.3 Physical Exam Const alert, oriented x3 and no apparent distress Constitutional Narrative: frail HEENT normocephalic, head/scalp atraumatic, moist oral mucous membranes and oropharynx normal Eyes EOMs intact bilaterally Neck supple and no JVD Lymph Lymphatic: no lymphedema noted Resp normal respiratory effort, no retractions, no use of accessory muscles and clear to auscultation bilaterally Cardio regular rate, regular rhythm, S1 normal heart sound, S2 normal heart sound and no murmurs Peripheral Pulses: pulses 2+ throughout GI normal to inspection, nondistended, normoactive bowel sounds, soft to palpation and non-tender Extremity normal capillary refill Extremity Narrative: bilateral 2+ pitting pedal edema of upper thighs; also has abdominal wall pitting edema. flail chest on right side General Extremity: no tenderness to palpation of joints or extremities Skin Skin Narrative: has ecchymotic patch over chest region, around dialysis catheter site. This has improved markedly General Skin Exam: no breakdown Neuro moves all extremities, no focal motor deficits and no sensory deficits noted Sensorium / Orientation: awake and alert Motor Exam: general weakness Psych thought process normal, cooperative and affect normal Appearance: appropriate Assessment & Plan Assessment/Plan (1) Debility: (2) ESRD (end stage renal disease): PLAN: Plan #Fluid overload with anasarca due to heart failure preserved ejection fraction and ESRD * Patient was recently started on dialysis. She had 1 dialysis session last Wednesday. Her only dialysis session after that was this past Wednesday which was 1 for just 1-1/2 hours. When she was started on dialysis she was run for 4 hours. * Patient came in with shortness of breath and anasarca. Found to be markedly fluid overloaded. * She was given Lasix but she has not made any urine at all. * Troponins were also elevated but there is a question of if this is likely due to decreased clearance from the ESRD. * Titrate oxygen as needed to maintain saturation above 90%. * Nephrology on board. for dialysis again today. Has had dialysis over the last 2 days. * * #Elevated troponins: * Likely due to reduced renal clearance. Has known EF of 50% from 2D echo from January of this year. * 2D echo this admission showed EF of 50% with normal ventricular size with moderately dilated right ventricle pulm artery systolic pressure 62 mmHg. #Atrial fibrillation: On metoprolol. S/p Watchman device. 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 Will monitor DVT prophylaxis: heparin Code status: DNRCCA no intubation Charges/Coding Visit Charges Inpatient E&M: 85330 Subs Hosp L2
[2025-06-09] MEDS: 0.9% Normal Saline 1,000 ML IV.SOLN. 1000 ML OPERA.SITE (11:52)
[2025-06-09] MEDS: PureFlow B 2K Dialysis Soln 1 BAG 6 BAG PF (11:52)
[2025-06-09] MEDS: 0.9% Saline Lock 10 ML Syringe IV ×3 (11:53→23:51)
--- NOTE | 2025-06-09 12:22 | CASEMGMT ---
DOUG MOSES NOTE: Call placed to Dagmar @ [facility]. She was made aware pt has been admitted to [facility] and may possibly be ready to discharge over the weekend. Cesilia LOPEZ RN CM
[2025-06-09] MEDS: Heparin Injection (Vial) 5,000 UNIT/ML VIAL 5000 UNIT SC (16:23)
[2025-06-09] MEDS: Vitamin B Comp W-C Capsule 1 CAP PO (16:24)
[2025-06-09] MEDS: Lidocaine 5% Patch 1 PATCH TOPICAL (16:24)
[2025-06-09] MEDS: Aspirin E.C. 81 MG Tablet PO (16:24)
--- NOTE | 2025-06-09 18:32 | PCM.PN.REN ---
Subjective Subjective Following for dialysis dependent MONIQUE on CKD. Patient denies chest pain. Dyspnea has improved since admission. She denies nausea, vomiting, or diarrhea. Appetite is okay. Objective Data Objective Data Vital Signs: Vital Signs Temp Pulse Resp BP Pulse Ox O2 Del Method 97.8 F 87 18 133/62 H 96 Room Air 06/09/25 16:08 06/09/25 16:08 06/09/25 16:08 06/09/25 16:08 06/09/25 16:08 06/09/25 16:08 Oxygen Delivery Method Room Air Weight: 68 kg Body Mass Index (BMI) 26.5 Intake & Output: Intake and Output for Last 24 Hours 06/07/25 06/08/25 06/09/25 23:59 23:59 23:59 Intake Total 1100 / 1100 360 / 360 510 / 510 Output Total 2961 / 2961 2150 / 2150 2310 / 2310 Balance -1861 / -1861 -1790 / -1790 -1800 / -1800 Lab / Micro Data 06/09/25 05:07 06/09/25 05:07 Labs: Laboratory Results - last 24 hr 06/09/25 05:07: WBC 8.8, RBC 3.13 L, Hgb 9.8 L, Hct 29.6 L, MCV 94.6, MCH 31.3, MCHC 33.1, RDW Std Deviation 72.4 H, RDW Coeff of Yonis 21.0 H, Plt Count 95 L, MPV 10.3, Immature Gran % (Auto) 0.700, Neut % (Auto) 69.8, Lymph % (Auto) 15.2 L, [place] % (Auto) 12.3 H, Eos % (Auto) 1.5, Baso % (Auto) 0.5, Absolute Neuts (auto) 6.2, Absolute Lymphs (auto) 1.34, Nucleated RBC % 0, Platelet Estimate MOD DEC, Anisocytosis 2+, Sodium 130 L, Potassium 3.9, Chloride 95 L, Carbon Dioxide 20.7 L, Anion Gap 14, BUN 60 H, Creatinine 4.05 H, Estim Creat Clear Calc 10.47 L, Est GFR (MDRD) Non-Af 11 L, BUN/Creatinine Ratio 14.8, Glucose 120 H, Calcium 8.3 Physical Exam Narrative Alert awake oriented x 3 no obvious distress no pallor no icterus no JVD s1s2 no murmurs lungs clear anteriorly abdomen soft no organomegaly 2+ edema lower extremities/anasarca Assessment & Plan Assessment/Plan (1) MONIQUE (acute kidney injury): (2) Chronic kidney disease, stage 3b: (3) HTN (hypertension): QUALIFIERS: Hypertension type: essential hypertension Qualified Code(s): I10 - Essential (primary) hypertension PLAN: Plan Assessment/Plan: Patient is a 79-year-old female with past history of CKD stage G3b, type 2 diabetes mellitus, hypertension, paroxysmal atrial fibrillation, aortic stenosis status post SAVR, sick sinus syndrome status post pacemaker placement, HFpEF, PAD, anemia, hyperlipidemia, and generalized anxiety disorder. Patient was recently admitted to hospital between 05/24/2025 and 06/01/2025 with right lower extremity cellulitis with doxycycline followed by several days of diarrhea prior to presentation. During this last admission, patient was also found to have new diagnosis of cirrhosis which was thought to be secondary to cardiac cause. She was also started on hemodialysis on 05/30/2025 because of MONIQUE on CKD. Patient presented back to hospital on 06/06/2025 with increasing lower extremity edema and weight gain. Nephrology is following for dialysis dependent MONIQUE on CKD. Acute kidney injury on chronic kidney disease stage G3b. Baseline serum creatinine has been around 1.80 to 2.00 mg/dL as recently as April 2025. MONIQUE has been attributed to ATN in the setting of cardiorenal syndrome During her last admission, renal function did not improve with volume expansion, and BUN remains more than 100 mg/dL, creatinine 4.39 mg/dL on 05/30/2025. She has required dialysis temporarily in the past under similar circumstances. Since patient did not improve, we started patient on dialysis on 05/30/2025 after TDC placement. Patient was discharged on 05/24/2025, and she has been getting hemodialysis on TTS schedule at [facility] prior to readmission. Will keep patient on TTS Andre schedule while she was in the hospital as well. Patient was ultrafiltered on 06/08/2025 and she was dialyzed earlier today on 06/09/2025 which she tolerated well. Next dialysis is anticipated for 06/12/2025. However, we will continue to assess patient for additional dialysis/ultrafiltration needs. Hypertension. BP is controlled without spironolactone. MRA was stopped during the last admission because of hyperkalemia in the setting of MONIQUE on CKD. Okay to continue metoprolol.
[2025-06-09] MEDS: Metoprolol(XL)Succ 50 MG Tablet PO (20:45)
[2025-06-10 02:50] VITALS: BP 105/60; PULSE 95; RESP 18; TEMP 36.6; O2SAT 98
[2025-06-10 05:14] LABS: Hematocrit 30.4 % (37-47); Hemoglobin 9.9 g/dL (12.0-15.0); Immature Granulocytes Count 0.050 X10^3/uL (0.0-0.0); Mean Corp Hgb Conc 32.6 g/dL (32-36); Mean Corpuscular Volume 96.5 fL (81-99); Mean Platelet Vol. 10.2 fl (6.2-12.0); NRBC Flagged by Analyzer 0.3 % (0-5); POSITIVE COUNT YES; POSITIVE MORPHOLOGY YES; Platelet Count 92 K/mm3 (150-450); RBC Distribution Width CV 21.2 % (11.6-14.6); RBC Distribution Width SD 74.4 fl (35.1-43.9); Red Blood Count 3.15 M/mm3 (4.2-5.4); White Blood Count 7.9 K/mm3 (4.4-11.0)
[2025-06-10 05:17] VITALS: BMI 26.7
[2025-06-10 05:25] LABS: Differential Indicated SCAN CRITERIA MET
[2025-06-10 05:31] LABS: Anion Gap 15 (5-15); BUN 40 mg/dL (4-19); BUN/Creat Ratio 13.1 RATIO (10-20); Calcium,Total 8.3 mg/dL (7.6-11.0); Carbon Dioxide 21.2 mmol/L (21.0-32.0); Chloride 97 mmol/L (98-108); Estimated Creatinine Clearance 13.80 ml/min (50-250); Glucose 115 mg/dL (70-99); Potassium 3.6 mmol/L (3.3-5.1)
[2025-06-10 06:23] LABS: Anisocytosis 1+
--- NOTE | 2025-06-10 06:47 | NURSING ---
Patient has not voided this shift. RN noted patient still does produce urine. Bladder scanned for 680. Straight Cath x2 nurses only few drops came out. Patient is very swollen in abdomen area with fluid. Patient is in no discomfort. Will continue to monitor
[2025-06-10 09:15] VITALS: BP 112/40; PULSE 81; RESP 20; TEMP 36.4; O2SAT 95
[2025-06-10 09:19] VITALS: BP 112/40; PULSE 81
[2025-06-10] MEDS: Lidocaine 5% Patch 1 PATCH TOPICAL (09:19)
[2025-06-10] MEDS: Vitamin B Comp W-C Capsule 1 CAP PO (09:19)
[2025-06-10] MEDS: Heparin Injection (Vial) 5,000 UNIT/ML VIAL 5000 UNIT SC ×2 (09:19→20:51)
[2025-06-10] MEDS: Metoprolol(XL)Succ 50 MG Tablet PO ×2 (09:19→20:50)
[2025-06-10] MEDS: Aspirin E.C. 81 MG Tablet PO (09:19)
[2025-06-10] MEDS: 0.9% Saline Lock 10 ML Syringe IV (09:27)
--- NOTE | 2025-06-10 09:40 | PN_ITS ---
Subjective Subjective Patient seen and examined with her nurse by her bedside. She had no active complaints. She is due for dialysis tomorrow, then for likely dc. Objective Data Objective Data Vital Signs: Vital Signs Temp Pulse Resp BP Pulse Ox O2 Del Method 97.6 F L 81 20 H 112/40 L 95 Room Air 06/10/25 09:15 06/10/25 09:19 06/10/25 09:15 06/10/25 09:19 06/10/25 09:15 06/10/25 09:15 Oxygen Delivery Method Room Air Weight: 151 lb 0.266 oz Body Mass Index (BMI) 26.7 Intake & Output: Intake and Output for Last 24 Hours 06/08/25 06/09/25 06/10/25 23:59 23:59 23:59 Intake Total 360 / 360 1160 / 1160 240 / 240 Output Total 2150 / 2150 2310 / 2310 100 / 100 Balance -1790 / -1790 -1150 / -1150 140 / 140 Lab / Micro Data 06/10/25 04:34 06/10/25 04:34 Labs: Laboratory Results - last 24 hr 06/10/25 04:34: WBC 7.9, RBC 3.15 L, Hgb 9.9 L, Hct 30.4 L, MCV 96.5, MCH 31.4, MCHC 32.6, RDW Std Deviation 74.4 H, RDW Coeff of Yonis 21.2 H, Plt Count 92 L, MPV 10.2, Immature Gran % (Auto) 0.600, Neut % (Auto) 69.8, Lymph % (Auto) 13.7 L, [place]cher % (Auto) 13.9 H, Eos % (Auto) 1.4, Baso % (Auto) 0.6, Absolute Neuts (auto) 5.5, Absolute Lymphs (auto) 1.08, Nucleated RBC % 0.3, Platelet Estimate SLT DEC, Anisocytosis 1+, Sodium 133, Potassium 3.6, Chloride 97 L, Carbon Dioxide 21.2, Anion Gap 15, BUN 40 H, Creatinine 3.07 H, Estim Creat Clear Calc 13.80 L, Est GFR (MDRD) Non-Af 15 L, BUN/Creatinine Ratio 13.1, Glucose 115 H, Calcium 8.3 Physical Exam Const alert, oriented x3 and no apparent distress Constitutional Narrative: frail HEENT normocephalic, head/scalp atraumatic, moist oral mucous membranes and oropharynx normal Eyes EOMs intact bilaterally Neck supple and no JVD Lymph Lymphatic: no lymphedema noted Resp no retractions, no use of accessory muscles and clear to auscultation bilaterally Resp Narrative: mildly diminished breath sounds bibasally, no wheezes or crackles. On room air. Cardio regular rate, regular rhythm, S1 normal heart sound, S2 normal heart sound and no murmurs Peripheral Pulses: pulses 2+ throughout GI normal to inspection, nondistended, normoactive bowel sounds, soft to palpation and non-tender Extremity normal capillary refill Extremity Narrative: bilateral 2+ pitting pedal edema of upper thighs; also has abdominal wall pitting edema. flail chest on right side General Extremity: no tenderness to palpation of joints or extremities Skin Skin Narrative: ecchymotic patch over chest region, around dialysis catheter site has improved markedly. General Skin Exam: no breakdown Neuro moves all extremities, no focal motor deficits and no sensory deficits noted Sensorium / Orientation: awake and alert Motor Exam: general weakness Psych thought process normal, cooperative and affect normal Appearance: appropriate Assessment & Plan Assessment/Plan (1) Debility: (2) ESRD (end stage renal disease): PLAN: Plan #Fluid overload with anasarca due to heart failure preserved ejection fraction and ESRD * Patient was recently started on dialysis. She had 1 dialysis session last Wednesday. Her only dialysis session after that was this past Wednesday which was 1 for just 1-1/2 hours. When she was started on dialysis she was run for 4 hours. * Patient came in with shortness of breath and anasarca. Found to be markedly fluid overloaded. * She was given Lasix but she has not made any urine at all. * Troponins were also elevated but there is a question of if this is likely due to decreased clearance from the ESRD. * Titrate oxygen as needed to maintain saturation above 90%. * Nephrology on board.had dialysis again yesterday and is due for dialysis tomorrow also * * #Elevated troponins: * Likely due to reduced renal clearance. Has known EF of 50% from 2D echo from January of this year. * 2D echo this admission showed EF of 50% with normal ventricular size with moderately dilated right ventricle pulm artery systolic pressure 62 mmHg. * no further workup needed #Atrial fibrillation: On metoprolol. S/p Watchman device. 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 Will monitor DVT prophylaxis: heparin Code status: DNRCCA no intubation Disposition: for DC home tomorrow after dialysis Charges/Coding Visit Charges Inpatient E&M: 55591 Subs Hosp L2
[2025-06-10 11:31] VITALS: O2SAT 100
[2025-06-10] MEDS: Mineral Oil/Petrolatum Cr 1.75oz Bottle 1 APPLIC TOPICAL (12:36)
[2025-06-10 16:03] VITALS: BP 117/48; PULSE 79; RESP 18; TEMP 36.2; O2SAT 94
--- NOTE | 2025-06-10 18:53 | PCM.PN.REN ---
Subjective Subjective Following for dialysis dependent MONIQUE on CKD. Patient denies increasing dyspnea today. Appetite is improved per her who is bedside. There has been no nausea, vomiting or diarrhea. Objective Data Objective Data Vital Signs: Vital Signs Temp Pulse Resp BP Pulse Ox O2 Del Method O2 Flow Rate 97.2 F L 79 18 117/48 L 94 Room Air 2 06/10/25 16:03 06/10/25 16:03 06/10/25 16:03 06/10/25 16:03 06/10/25 16:03 06/10/25 16:03 06/10/25 11:31 Oxygen Flow Rate (L/min) 2 Oxygen Delivery Method Room Air Weight: 68.5 kg Body Mass Index (BMI) 26.7 Intake & Output: Intake and Output for Last 24 Hours 06/08/25 06/09/25 06/10/25 23:59 23:59 23:59 Intake Total 360 / 360 1160 / 1160 1120 / 1120 Output Total 2150 / 2150 2310 / 2310 150 / 150 Balance -1790 / -1790 -1150 / -1150 970 / 970 Lab / Micro Data 06/10/25 04:34 06/10/25 04:34 Labs: Laboratory Results - last 24 hr 06/10/25 04:34: WBC 7.9, RBC 3.15 L, Hgb 9.9 L, Hct 30.4 L, MCV 96.5, MCH 31.4, MCHC 32.6, RDW Std Deviation 74.4 H, RDW Coeff of Yonis 21.2 H, Plt Count 92 L, MPV 10.2, Immature Gran % (Auto) 0.600, Neut % (Auto) 69.8, Lymph % (Auto) 13.7 L, Steele % (Auto) 13.9 H, Eos % (Auto) 1.4, Baso % (Auto) 0.6, Absolute Neuts (auto) 5.5, Absolute Lymphs (auto) 1.08, Nucleated RBC % 0.3, Platelet Estimate SLT DEC, Anisocytosis 1+, Sodium 133, Potassium 3.6, Chloride 97 L, Carbon Dioxide 21.2, Anion Gap 15, BUN 40 H, Creatinine 3.07 H, Estim Creat Clear Calc 13.80 L, Est GFR (MDRD) Non-Af 15 L, BUN/Creatinine Ratio 13.1, Glucose 115 H, Calcium 8.3 Physical Exam Narrative Alert awake oriented x 3 no obvious distress no pallor no icterus no JVD s1s2 no murmurs lungs clear anteriorly abdomen soft no organomegaly 2+ edema lower extremities/anasarca Assessment & Plan Assessment/Plan (1) MONIQUE (acute kidney injury): (2) Chronic kidney disease, stage 3b: (3) HTN (hypertension): QUALIFIERS: Hypertension type: essential hypertension Qualified Code(s): I10 - Essential (primary) hypertension PLAN: Plan Assessment/Plan: Patient is a 79-year-old female with past history of CKD stage G3b, type 2 diabetes mellitus, hypertension, paroxysmal atrial fibrillation, aortic stenosis status post SAVR, sick sinus syndrome status post pacemaker placement, HFpEF, PAD, anemia, hyperlipidemia, and generalized anxiety disorder. Patient was recently admitted to hospital between 05/24/2025 and 06/01/2025 with right lower extremity cellulitis with doxycycline followed by several days of diarrhea prior to presentation. During this last admission, patient was also found to have new diagnosis of cirrhosis which was thought to be secondary to cardiac cause. She was also started on hemodialysis on 05/30/2025 because of MONIQUE on CKD. Patient presented back to hospital on 06/06/2025 with increasing lower extremity edema and weight gain. Nephrology is following for dialysis dependent MONIQUE on CKD. Acute kidney injury on chronic kidney disease stage G3b. Baseline serum creatinine has been around 1.80 to 2.00 mg/dL as recently as April 2025. MONIQUE has been attributed to ATN in the setting of cardiorenal syndrome During her last admission, renal function did not improve with volume expansion, and BUN remains more than 100 mg/dL, creatinine 4.39 mg/dL on 05/30/2025. She has required dialysis temporarily in the past under similar circumstances. Since patient did not improve, we started patient on dialysis on 05/30/2025 after TDC placement. Patient was discharged on 05/24/2025, and she has been getting hemodialysis on TTS schedule at [facility] prior to readmission. Will keep patient on TTS Andre schedule while she was in the hospital as well. Patient was ultrafiltered on 06/08/2025 and she was dialyzed yesterday on 06/09/2025. Patient tolerated dialysis well. There is no need for hemodialysis today. Next dialysis is anticipated for 06/12/2025. However, we will continue to assess patient for additional dialysis/ultrafiltration needs daily. Hypertension. BP is controlled without spironolactone. MRA was stopped during the last admission because of hyperkalemia in the setting of MONIQUE on CKD. Okay to continue metoprolol.
[2025-06-10 20:50] VITALS: BP 132/58; PULSE 86; PULSE 89; RESP 18; TEMP 36.8; O2SAT 96
[2025-06-11 03:00] VITALS: BP 119/52; PULSE 75; RESP 18; TEMP 36.6; O2SAT 95
[2025-06-11 06:27] LABS: Hematocrit 30.5 % (37-47); Hemoglobin 10.1 g/dL (12.0-15.0); Immature Granulocytes Count 0.050 X10^3/uL (0.0-0.0); Mean Corp Hgb Conc 33.1 g/dL (32-36); Mean Corpuscular Volume 95.3 fL (81-99); Mean Platelet Vol. 10.1 fl (6.2-12.0); NRBC Flagged by Analyzer 0 % (0-5); POSITIVE COUNT YES; POSITIVE MORPHOLOGY YES; Platelet Count 94 K/mm3 (150-450); RBC Distribution Width CV 20.8 % (11.6-14.6); RBC Distribution Width SD 73.1 fl (35.1-43.9); Red Blood Count 3.20 M/mm3 (4.2-5.4); White Blood Count 7.1 K/mm3 (4.4-11.0)
[2025-06-11 06:28] LABS: Differential Indicated SCAN CRITERIA MET
[2025-06-11 06:48] LABS: Anion Gap 13 (5-15); BUN 49 mg/dL (4-19); BUN/Creat Ratio 12.9 RATIO (10-20); Calcium,Total 8.4 mg/dL (7.6-11.0); Carbon Dioxide 21.6 mmol/L (21.0-32.0); Chloride 95 mmol/L (98-108); Estimated Creatinine Clearance 11.12 ml/min (50-250); Glucose 116 mg/dL (70-99); Potassium 3.9 mmol/L (3.3-5.1)
[2025-06-11 06:51] LABS: Anisocytosis 1+
[2025-06-11 09:00] VITALS: BP 132/63; PULSE 84; RESP 18; TEMP 36.6; O2SAT 100
[2025-06-11 09:15] VITALS: PULSE 84
[2025-06-11] MEDS: Heparin Injection (Vial) 5,000 UNIT/ML VIAL 5000 UNIT SC (09:15)
[2025-06-11] MEDS: Vitamin B Comp W-C Capsule 1 CAP PO (09:15)
[2025-06-11] MEDS: Aspirin E.C. 81 MG Tablet PO (09:15)
[2025-06-11] MEDS: Lidocaine 5% Patch 1 PATCH TOPICAL (09:15)
[2025-06-11] MEDS: Metoprolol(XL)Succ 50 MG Tablet PO (09:15)
[2025-06-11] MEDS: Mineral Oil/Petrolatum Cr 1.75oz Bottle 1 APPLIC TOPICAL (09:16)
[2025-06-11 12:15] VITALS: O2SAT 98
--- NOTE | 2025-06-11 12:15 | PCM.PN.REN ---
Subjective Subjective Sitting in chair, no complaints. States good appetite. Objective Data Objective Data Vital Signs: Vital Signs Temp Pulse Resp BP Pulse Ox O2 Del Method O2 Flow Rate 97.9 F 84 18 132/63 H 100 Room Air 2 06/11/25 09:00 06/11/25 09:15 06/11/25 09:00 06/11/25 09:00 06/11/25 09:00 06/11/25 09:00 06/10/25 11:31 Oxygen Flow Rate (L/min) 2 Oxygen Delivery Method Room Air Weight: 68.5 kg Body Mass Index (BMI) 26.7 Intake & Output: Intake and Output for Last 24 Hours 06/09/25 06/10/25 06/11/25 23:59 23:59 23:59 Intake Total 1160 / 1160 1120 / 1120 Output Total 2310 / 2310 150 / 150 50 / 50 Balance -1150 / -1150 970 / 970 -50 / -50 Lab / Micro Data 06/11/25 06:15 06/11/25 06:15 Labs: Laboratory Results - last 24 hr 06/11/25 06:15: WBC 7.1, RBC 3.20 L, Hgb 10.1 L, Hct 30.5 L, MCV 95.3, MCH 31.6, MCHC 33.1, RDW Std Deviation 73.1 H, RDW Coeff of Yonis 20.8 H, Plt Count 94 L, MPV 10.1, Immature Gran % (Auto) 0.700, Neut % (Auto) 64.6, Lymph % (Auto) 18.0 L, Ballard % (Auto) 14.4 H, Eos % (Auto) 1.6, Baso % (Auto) 0.7, Absolute Neuts (auto) 4.6, Absolute Lymphs (auto) 1.27, Nucleated RBC % 0, Platelet Estimate SLT DEC, Anisocytosis 1+, Sodium 130 L, Potassium 3.9, Chloride 95 L, Carbon Dioxide 21.6, Anion Gap 13, BUN 49 H, Creatinine 3.81 H, Estim Creat Clear Calc 11.12 L, Est GFR (MDRD) Non-Af 12 L, BUN/Creatinine Ratio 12.9, Glucose 116 H, Calcium 8.4 Physical Exam Narrative Alert awake oriented x 3 no obvious distress no JVD s1s2 no murmurs lungs clear anteriorly, no wheezes rhonchi or rales. On room air abdomen soft 1-2+ edema lower extremities/anasarca Assessment & Plan Assessment/Plan (1) MONIQUE (acute kidney injury): (2) Chronic kidney disease, stage 3b: (3) HTN (hypertension): QUALIFIERS: Hypertension type: essential hypertension Qualified Code(s): I10 - Essential (primary) hypertension PLAN: Plan Assessment/Plan: Patient is a 79-year-old female with past history of CKD stage G3b, type 2 diabetes mellitus, hypertension, paroxysmal atrial fibrillation, aortic stenosis status post SAVR, sick sinus syndrome status post pacemaker placement, HFpEF, PAD, anemia, hyperlipidemia, and generalized anxiety disorder. Patient was recently admitted to hospital between 05/24/2025 and 06/01/2025 with right lower extremity cellulitis with doxycycline followed by several days of diarrhea prior to presentation. During this last admission, patient was also found to have new diagnosis of cirrhosis which was thought to be secondary to cardiac cause. She was also started on hemodialysis on 05/30/2025 because of MONIQUE on CKD. Patient presented back to hospital on 06/06/2025 with increasing lower extremity edema and weight gain. Nephrology is following for dialysis dependent MONIQUE on CKD. Acute kidney injury on chronic kidney disease stage G3b. Baseline serum creatinine has been around 1.80 to 2.00 mg/dL as recently as April 2025. MONIQUE has been attributed to ATN in the setting of cardiorenal syndrome During her last admission, renal function did not improve with volume expansion, and BUN remains more than 100 mg/dL, creatinine 4.39 mg/dL on 05/30/2025. She has required dialysis temporarily in the past under similar circumstances. Since patient did not improve, we started patient on dialysis on 05/30/2025 after TDC placement. Patient was discharged on 05/24/2025, and she has been getting hemodialysis on TTS schedule at [facility] prior to readmission. Will keep patient on TTS Andre schedule while she was in the hospital as well. Patient was ultrafiltered on 06/08/2025 and she was dialyzed yesterday on 06/09/2025. Patient tolerated dialysis well. Today serum creatinine 3.8, potassium 3.9. No acute indication for renal replacement therapy today. Next dialysis will be tomorrow. Assessment and plan reviewed with Dr. Mcgarry.
--- NOTE | 2025-06-11 12:53 | DCINST_ITS ---
Discharge Instructions DC O2, CPAP, BIPAP needs Home O2 Discharge instructions: No Dressing / Incision Discharge Activity: Return to Normal Activity and Use Walker (if needed) Weight Bearing Status: Full weight bearing Follow Up Care Test Results: Test results from this visit will be discussed in further detail at your follow- up appointment, if applicable. Discharge Plan Admission Admit Date/Time: 06/06/25 17:00 Primary Reason for Your Visit: fluid overload Attending Provider: Dylon Stovall Primary Care Provider: Vincent Flores [facility] [employer] Providers: Jeremy Mcgarry; Reed Diaz; Za Strong Discharge Orders/Prescriptions Prescriptions: Continued vitamin B complex Tablet 1 tab PO QDAY metoprolol succinate 50 mg tablet extended release 24 hr 50 mg PO BID polysaccharide iron complex [Ferrex 150] 150 mg iron capsule 150 mg PO QDAY ascorbic acid (vitamin C) 500 mg tablet 500 mg PO QDAY aspirin [Adult Aspirin Regimen] 81 mg tablet,delayed release (DR/EC) 81 mg PO QDAY levothyroxine 50 mcg tablet 50 mcg PO DAILY atorvastatin 40 mg tablet 40 mg PO DAILY pantoprazole 40 mg tablet,delayed release (DR/EC) 40 mg PO QDAY Referrals / Follow Up: Vincent Flores Chi, MD [Primary Care Provider, Geriatrics] Disposition Disposition (needs filled in before D/C Order can be placed): Home, Self Care
--- NOTE | 2025-06-11 12:57 | DS.PCM_ITS ---
Providers Date of Admission: 06/06/25 Date of Discharge: 06/11/25 Primary Care Physician: Dr. Vincnet Flores MD Consultations 06/06/25 18:30 Consult: Nephrology Routine Consulting Provider: Jeremy Mcgarry Reason for Consult: dialysis EMERGENT Consult: No MD Notified: Yes Date Notified: 06/06/25 Time Notified: 18:46 Method of Notification: Answering Service 06/07/25 17:40 Consult: Onc/Wound/referral coordinator Routine Comment: Reason For Visit: CHF EX Diagnosis Discharge Diagnosis (1) MONIQUE (acute kidney injury): Status: Acute Code(s): N17.9 - Acute kidney failure, unspecified (2) Chronic kidney disease, stage 3b: Status: Acute Code(s): N18.32 - Chronic kidney disease, stage 3b (3) HTN (hypertension): Status: Chronic Code(s): I10 - Essential (primary) hypertension Qualifiers: Hypertension type: essential hypertension Qualified Code(s): I10 - Essential (primary) hypertension Plan Final diagnosis: #1 fluid overload with anasarca secondary to end-stage renal disease #2 chronic atrial fibrillation-status post Watchman device-patient not on metoprolol, she is not anticoagulated due to past history of GI bleed #3 hypothyroidism-patient is on Synthroid #4 elevated troponin secondary to end-stage renal disease Congestive heart failure was ruled out Medications at Discharge Home Medications atorvastatin 40 mg tablet 40 mg PO DAILY daily 01/07/25 metoprolol succinate 50 mg tablet,extended release 24 hr 50 mg PO BID blood pressure 02/05/25 vitamin B complex 1 tab PO QDAY supplement 02/05/25 ascorbic acid (vitamin C) 500 mg tablet 500 mg PO QDAY supplement 02/14/25 aspirin 81 mg tablet,delayed release (Adult Aspirin Regimen) 81 mg PO QDAY heart health 02/14/25 pantoprazole 40 mg tablet,delayed release 40 mg PO QDAY stomach 02/14/25 polysaccharide iron complex 150 mg iron capsule (Ferrex) 150 mg PO QDAY low iron 02/14/25 levothyroxine 50 mcg tablet 50 mcg PO DAILY thyroid 03/01/25 Hospital Course Operations None Procedures Dialysis Summary of Care Provided Minutes Spent on Discharge: 31 Hospital Course: This 79-year-old white female was seen in the emergency room at [facility] with complaints of increased lower extremity swelling and bloated abdominal wall. Patient had been started on dialysis and was discharged in the hospital here on June 01, 2025. Patient had dialysis yesterday for about 4 hours. For lab results please see medical record. Patient was admitted to PCU, she was seen in consultation by nephrology and underwent dialysis. Patient did not need oxygen at the time of discharge. On 06/11/2025, patient was seen and examined: On examination she appeared in good health and spirits, she does not appear to be in any distress. Vital signs as documented. Skin warm and dry and without overt rashes. Neck without JVD, thyroid appears normal, trachea is midline, neck is supple. Lungs clear, normal air movement was noted. Heart exam notable for irregular rhythm, normal sounds and absence of murmurs, rubs or gallops. Abdomen unremarkable and without evidence of organomegaly, masses, or abdominal aortic enlargement, bowel sounds are present in all 4 quadrants, no abdominal tenderness was noted. Extremities nonedematous, no cyanosis was noted, no clubbing was noted. Neuro: Cranial nerves II through XII are grossly intact, no focal motor deficits were noted, sensation to light touch and pinprick is intact, motor exam 5/5 throughout. Psych: Patient is alert and oriented x3, she does not appear anxious or depressed, she does not appear agitated. On 06/11/25, patient was discharged home in stable condition Weight / BMI Weight Weight: 68.5 kg Body Mass Index (BMI) 26.7 ABG / Lab / Microbiology Data 06/11/25 06:15 06/11/25 06:15 Laboratory: Laboratory Results - last 24 hr 06/11/25 06:15: WBC 7.1, RBC 3.20 L, Hgb 10.1 L, Hct 30.5 L, MCV 95.3, MCH 31.6, MCHC 33.1, RDW Std Deviation 73.1 H, RDW Coeff of Yonis 20.8 H, Plt Count 94 L, MPV 10.1, Immature Gran % (Auto) 0.700, Neut % (Auto) 64.6, Lymph % (Auto) 18.0 L, Wise % (Auto) 14.4 H, Eos % (Auto) 1.6, Baso % (Auto) 0.7, Absolute Neuts (auto) 4.6, Absolute Lymphs (auto) 1.27, Nucleated RBC % 0, Platelet Estimate SLT DEC, Anisocytosis 1+, Sodium 130 L, Potassium 3.9, Chloride 95 L, Carbon Dioxide 21.6, Anion Gap 13, BUN 49 H, Creatinine 3.81 H, Estim Creat Clear Calc 11.12 L, Est GFR (MDRD) Non-Af 12 L, BUN/Creatinine Ratio 12.9, Glucose 116 H, Calcium 8.4 D/C Instructions Weight Bearing Status: Full weight bearing DC O2, CPAP, BIPAP Needs Home O2 Discharge instructions: No Meaningful Use Info Meaningful Use Meaningful Use Diagnoses (Choose all that apply): None applicable Discharge Plan Admission Admit Date/Time: 06/06/25 17:00 Primary Reason for Your Visit: fluid overload Attending Provider: Dylon Stovall Primary Care Provider: Vincent Flores Chi Consulting Providers: Jeremy Mcgarry; Reed Diaz; Za Strong Discharge Orders/Prescriptions Prescriptions: Continued vitamin B complex Tablet 1 tab PO QDAY metoprolol succinate 50 mg tablet extended release 24 hr 50 mg PO BID polysaccharide iron complex [Ferrex 150] 150 mg iron capsule 150 mg PO QDAY ascorbic acid (vitamin C) 500 mg tablet 500 mg PO QDAY aspirin [Adult Aspirin Regimen] 81 mg tablet,delayed release (DR/EC) 81 mg PO QDAY levothyroxine 50 mcg tablet 50 mcg PO DAILY atorvastatin 40 mg tablet 40 mg PO DAILY pantoprazole 40 mg tablet,delayed release (DR/EC) 40 mg PO QDAY Referrals / Follow Up: [facility] [Outside] Referral Note: Patient to resume outpatient dialysis on Wednesday06/12/25 arrival time of 1020 with start time of 1040. Patient to attend dialysis on Tuesdays, , and Saturdays Vincent Flores Chi, MD [Primary Care Provider, Geriatrics] Referral Note: I LEFT MESSAGE FOR DR FLORES WITH PATIENT INFORMATION. PATIENT SHOULD CALL TO SET UP APPOINTMENT. Disposition Disposition (needs filled in before D/C Order can be placed): Home, Self Care Charges/Coding Visit Charges Inpatient E&M: 68154 Disch Hosp >30min
--- NOTE | 2025-06-11 13:16 | PHA.DC.MR.R ---
Pharmacy MS Med Reconciliation Pharmacy Service has performed discharge medication reconciliation for this patient. The patient's discharge medication list was reviewed for discrepancies and discrepancies were resolved. Medications at Discharge Home Medications atorvastatin 40 mg tablet 40 mg PO DAILY daily 01/07/25 metoprolol succinate 50 mg tablet,extended release 24 hr 50 mg PO BID blood pressure 02/05/25 vitamin B complex 1 tab PO QDAY supplement 02/05/25 ascorbic acid (vitamin C) 500 mg tablet 500 mg PO QDAY supplement 02/14/25 aspirin 81 mg tablet,delayed release (Adult Aspirin Regimen) 81 mg PO QDAY heart health 02/14/25 pantoprazole 40 mg tablet,delayed release 40 mg PO QDAY stomach 02/14/25 polysaccharide iron complex 150 mg iron capsule (Ferrex) 150 mg PO QDAY low iron 02/14/25 levothyroxine 50 mcg tablet 50 mcg PO DAILY thyroid 03/01/25
[2025-06-11 15:05] VITALS: BP 132/61; PULSE 95; RESP 17; TEMP 36.4; O2SAT 96
== END 2025-06-11 15:22 | disposition home or self-care (01) | DRG 682 ==
LOC: ED 12:20 → PCU 17:44
PROVIDERS: Student in an Organized Health Care Education/Training Program; Emergency Provider Student in an Organized Health Care Education/Training Program; PCP Family Medicine Geriatric Medicine; Visit Provider Internal Medicine
DX: I12.0 Hypertensive chronic kidney disease with stage 5 chronic kidney disease or end stage renal disease (principal); N18.6 End stage renal disease; I48.20 Chronic atrial fibrillation, unspecified; N17.9 Acute kidney failure, unspecified; I27.20 Pulmonary hypertension, unspecified; K76.1 Chronic passive congestion of liver; I49.5 Sick sinus syndrome; Z66 Do not resuscitate; E11.22 Type 2 diabetes mellitus with diabetic chronic kidney disease; M06.9 Rheumatoid arthritis, unspecified; E03.9 Hypothyroidism, unspecified; D63.1 Anemia in chronic kidney disease; Z95.2 Presence of prosthetic heart valve; Z99.2 Dependence on renal dialysis; E11.51 Type 2 diabetes mellitus with diabetic peripheral angiopathy without gangrene; K21.9 Gastro-esophageal reflux disease without esophagitis; E78.5 Hyperlipidemia, unspecified; I35.0 Nonrheumatic aortic (valve) stenosis; F41.1 Generalized anxiety disorder; S22.5XXD Flail chest, subsequent encounter for fracture with routine healing; R79.89 Other specified abnormal findings of blood chemistry; R53.81 Other malaise; Z95.0 Presence of cardiac pacemaker; Z79.82 Long term (current) use of aspirin; Z79.899 Other long term (current) drug therapy; Z87.891 Personal history of nicotine dependence; Z87.19 Personal history of other diseases of the digestive system; Z79.890 Hormone replacement therapy
CPT/HCPCS: 36415; 74176; 80048; 80053; 83880; 84484; 85025; 90937; 93005; 93308; 97116; 97162; 97166; 97530; 97535; 97802; 99284; A4216; G0257; J1938

== ENCOUNTER → 2025-06-13 | Outpatient (CLI) | payer MEDICARE, SELFPAY ==
--- NOTE | 2025-06-13 12:30 | RAD_ITS ---
PROCEDURE: FOOT MIN 3 VIEWS 06/13/2025 REASON FOR EXAM: FOOT PAIN TECHNIQUE: Procedure Code: RADFO Modality: DX Procedure: FOOT MIN 3 VIEWS Laterality: Right COMPARISON: None FINDINGS: Bones: Bony demineralization of the osseous structures of the right foot are noted. There is a lytic lesion involving the distal medial aspect of the 1st metatarsal bone. This measures approximately 13.6 cm in length x 6 mm in transverse dimension. This lytic lesion appears to have a sclerotic margin. There is soft tissue swelling at this location. There is a hallux valgus deformity involving the 1st digit. The remaining osseous structures appear to be intact without evidence of fracture or dislocation. Small amount of calcification is seen on the calcaneus at the insertion site of the Achilles tendon. Joints: The joint spaces are well preserved. Soft tissues: Soft tissue swelling is seen along the medial aspect of the 1st metatarsophalangeal joint. Other: Arteriosclerotic vascular disease of the vessels of the ankle and foot are noted. RAD/Foot min 3 Views IMPRESSION: Bony demineralization of the osseous structures of the right foot are noted. There is a lytic lesion involving the distal medial aspect of the 1st metatarsa l bone. This measures approximately 13.6 cm in length x 6 mm in transverse dimension. This lytic lesion appears to have a scl erotic margin. There is soft tissue swelling at this location. This could represent osteomyelitis in the right clinical settin g. Both benign and malignant neoplastic processes should be considered. MRI examination is recommended for further evaluation if clinically warranted. There is a hallux valgus deformity involving the 1st digit. Reading Location: [id number]
== END | disposition home or self-care (01) ==
LOC: RAD 12:27
PROVIDERS: PCP Family Medicine Geriatric Medicine; Visit Provider Family Medicine Geriatric Medicine
DX: M79.671 Pain in right foot (principal)
CPT/HCPCS: 73630

== ENCOUNTER 2025-06-17 15:46 | Inpatient (IN) | payer MEDICARE, SELFPAY ==
[2025-06-17] VITALS (16 sets, daily range): BP systolic 90–124; BP diastolic 35–96; PULSE 70–102; RESP 10–20; TEMP 34.2–36.6; O2SAT 89–100; BMI 25.0; BMI 27.4
--- NOTE | 2025-06-17 16:17 | ED.VIS.LOWEX ---
HPI History of Present Illness HPI Narrative: 79-year-old female extensive past medical history of chronic kidney disease, dialysis, A-fib, pacemaker, CHF on aspirin but no other blood thinners. Has had intermittent right foot infection since around September. She has seen wound care center. She does not believe she is seeing a buckle and button maker for this. She has been on no recent antibiotics. She has had more pain and swelling in her right proximal heel area for the last week. Was seen by her primary care physician Dr. Flores. Did x-rays earlier this week that had concerns for osteomyelitis. She does complain of foot pain. Denies any trauma. Chief Complaint: Lower Extremity Injury Informant: patient and spouse/S.O. Onset/Context/Timing Onset: Days Context: Gradual Onset Timing: Continuous Quality of Pain: Sharp Current Severity: Moderate Maximum Severity: Moderate Associated Symptoms Associated Symptoms: Negative for Parasthesia, Weakness or Loss of Funtion Narrative Narrative: 79-year-old female with right foot infection. Concern for osteomyelitis on recent x-rays. Prior similar symptoms: Yes Recent Illness/Hospitalization: No PFSH PFSH Medical History MONIQUE (acute kidney injury) Ulcer of left lower extremity with fat layer exposed Anemia of chronic renal failure, stage 3 (moderate) Iron deficiency anemia due to chronic blood loss History of ESBL E. coli infection Type 2 diabetes mellitus Ulcer of left foot with fat layer exposed Ulcer of right foot with fat layer exposed Ulcer of right lower extremity with fat layer exposed Acute on chronic heart failure with preserved ejection fraction Hypokalemia Fatigue Vitamin D deficiency Rheumatoid arthritis Insomnia Mitral valve regurgitation Tachy-lionel syndrome Rheumatic fever GERD (gastroesophageal reflux disease) Chronic renal failure (CRF), stage 3b Cervical cancer Iron deficiency anemia Non-sustained ventricular tachycardia Pulmonary hypertension Rectal bleed Presence of Watchman left atrial appendage closure device Pacemaker Sinus node dysfunction Bradycardia History of cardioversion Skin tear of left forearm without complication Skin cancer Cardiac arrhythmia CHF exacerbation Brain aneurysm Anxiety Family history of brain aneurysm PAD (peripheral artery disease) PAF (paroxysmal atrial fibrillation) Obesity (BMI 30.0-34.9) Laceration of right middle finger Heart disease Diabetes History of cancer Fever HTN (hypertension) Diabetes mellitus type 2 in obese Chest pain, musculoskeletal HLD (hyperlipidemia) URI (upper respiratory infection) Bronchospasm with bronchitis, acute Home Medications ?Medication ?Instructions ?Recorded ?Last Taken ?Type atorvastatin 40 mg tablet 40 mg PO DAILY daily 01/07/25 06/05/25 History metoprolol succinate 50 mg 50 mg PO BID blood pressure 02/05/25 06/06/25 History tablet,extended release 24 hr vitamin B complex 1 tab PO QDAY supplement 02/05/25 06/06/25 History ascorbic acid (vitamin C) 500 mg 500 mg PO QDAY supplement 02/14/25 06/05/25 History tablet aspirin 81 mg tablet,delayed 81 mg PO QDAY heart health 02/14/25 06/06/25 History release (Adult Aspirin Regimen) pantoprazole 40 mg tablet,delayed 40 mg PO QDAY stomach 02/14/25 06/06/25 History release polysaccharide iron complex 150 mg 150 mg PO QDAY low iron 02/14/25 06/05/25 History iron capsule (Ferrex) levothyroxine 50 mcg tablet 50 mcg PO DAILY thyroid 03/01/25 06/06/25 History Allergy/AdvReac Type Severity Reaction Status Date / Time propofol AdvReac Mild Low blood Verified 06/17/25 15:48 pressure Family History Father Heart disease High cholesterol Myocardial infarction, Onset Age: 58 Mother Heart disease Surgical History Hx of abdominal surgery History of mastoidectomy History of cardiac radiofrequency ablation history skin cancer surgery history bilateral ear surgeries History of hysterectomy H/O aortic valve replacement Social History household members: spouse number of children: 1 current occupational status: 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 Constitutional Constitutional ED: Denies chills or fever(s) ENT ENT ED: Denies ear pain Cardiovascular Cardiovascular: Denies chest pain Respiratory/Chest Respiratory/Chest: Denies cough or dyspnea Gastrointestinal Gastrointestinal: Denies abdominal pain Genitourinary Genitourinary ED: Denies dysuria or hematuria Musculoskeletal Musculoskeletal: Denies arthralgias Integumentary Reports rash; Denies abscess Neurologic Neurologic: Denies headache(s) Psychiatric Psychiatric: Denies anxiety or depression Endocrine Endocrinology: Denies polydipsia Hematologic/Lymphatic Hematologic/Lymphatic: Denies easy bleeding Allergic/Immunologic Allergic/Immunologic ED: Denies mouth swelling EXAM Physical Exam Narrative Exam Narrative: 79-year-old female sitting upright in bed vital signs stable afebrile no acute distress. Accompanied by her . H EENT exam pupils round react light. Moist mutes membranes. Neck nontender no JVD no lymphadenopathy. Back nontender. Lungs clear to auscultation bilaterally. Heart rate around 75 A-fib with a 4/6 systolic ejection murmur. Chest wall ribs nontender. Abdomen soft nontender. Moving all 4 extremities. Calves are nontender no cords. She can do dorsi and plantarflexion she has direct chill caster strength. The heel of her right foot is red mildly swollen. Tender. There is a wound on the right lateral bottom aspect of her right heel. Appears to be infected. There is no bony deformity. There is no lymphangitic streaking. She has no inguinal lymphadenopathy. Neurologically she is awake alert. She is answering questions and following commands. Const Vital Signs: 06/17/25 15:47 06/17/25 15:48 Temperature 98 F 98 F Temperature Source Oral Oral Pulse Rate 71 75 Respiratory Rate 16 18 Blood Pressure 113/35 L 113/65 Blood Pressure Mean 61 81 Pulse Ox 99 99 Oxygen Delivery Method Room Air Room Air MDM MDM MDM Narrative Medical decision making narrative: 79-year-old female right foot infection I reviewed her x-rays from earlier this week there was a concern for metatarsal osteomyelitis. She was started on IV Zosyn. Screening labs are being obtained. She may need an MRI but does not available today. I will speak to the hospitalist when labs return about having her admitted and getting podiatry also involved. I discussed patient's care with Dr. Caruso. Patient will be admitted to the hospitalist. With a consult to podiatry. Repeat exam patient is doing well at 5 PM no significant change. Have the hospitalist on page for admission. History & Record Review Discussion w/independent historian: Patient and Family Additional record(s) reviewed:: Prior inpatient record, Prior outpatient record, Prior ED visit and Prior labs Lab Data Attestation: I reviewed the patient's lab results. Lab results narrative: CBC shows a mildly elevated white count 1.9 H&H of 10 and 31 consistent with her chronic anemia. Platelets 183. BMP shows gap 14. BUN and creatinine of 31 and 3.2 she has chronic kidney disease on dialysis. Glucose 129. C-reactive protein of 82.9 sed rate is 48. Labs: Laboratory Results - last 24 hr 06/17/25 16:06 WBC 11.9 H RBC 3.20 L Hgb 10.0 L Hct 31.9 L MCV 99.7 H MCH 31.3 MCHC 31.3 L RDW Std Deviation 77.8 H RDW Coeff of Yonis 21.4 H Plt Count 183 MPV 10.2 Immature Gran % (Auto) 1.000 H Neut % (Auto) 71.4 H Lymph % (Auto) 15.0 L [place] % (Auto) 11.4 H Eos % (Auto) 0.7 Baso % (Auto) 0.5 Absolute Neuts (auto) 8.5 H Absolute Lymphs (auto) 1.78 Nucleated RBC % 0.3 ESR 48 H Sodium 134 Potassium 4.7 Chloride 92 L Carbon Dioxide 27.9 Anion Gap 14 BUN 31 H Creatinine 3.20 H Estim Creat Clear Calc 12.85 L Est GFR (MDRD) Non-Af 14 L BUN/Creatinine Ratio 9.5 L Glucose 129 H Calcium 8.8 C-React Prot Ext Range 82.90 H Discharge Plan Dx/Rx/DC Orders Clinical Impression: Acute osteomyelitis of foot, History of end stage renal disease, Dialysis patient, History of atrial fibrillation, Chronic anemia, Hx of acute congestive heart failure Disposition Disposition: Acute Care [facility]
--- OUTSIDE RECORDS SUMMARY | 2025-06-17 16:21 | XMS RPT_ITS | CCD ---
Author Organization [facility] CliniSyde Care Team Providers Care Dietetic Aide Name Role Phone Cruz Le Primary Care [...] Care Provider Yin Agustin MD Unavailable [phone] Helen CAMACHO, Sheridan Collins Unavailable Unavailable Carla [...] Le PA-C Primary Care Provider Unavailable Haagen UNDERWRITING SALES REPRESENTATIVE.BRANCH LEAD, Deysi Unavailable Suppan UNDERWRITING SALES REPRESENTATIVE.BRANCH LEAD, Sandra A Unavailable Sonny Lund MD Unavailable Haagen UNDERWRITING SALES REPRESENTATIVE.BRANCH LEAD, Deysi Primary Care Provider Sonny Lund MD [...] Unavailable HAAGEN, DEYSI Primary Care Unavailable Haagen BRAND STRATEGY MANAGER-C, Deysi Primary Care Provider Piero UGARTE, Dr. Durán Emergency Provider Arron UAGRTE, Dr. Garcia Admit Provider Arron UGARTE, Dr. Garcia Attending Provider Arron UGARTE, Dr. Garcia Other Provider Dr. Dianne Stovall DO Attending Provider Zeferino UGARTE, Dr. Luna Other Provider Karolina UGARTE, Dr. Mcbride Attending Provider Sonam UGARTE, Dr. Purvis Attending Provider Teo Blue MD Other Provider Unavailable Nolan UGARTE, Dr. Portillo Other Provider [phone] Mo UGARTE, Yamileth Other Provider Unavailable Dr. Josefina Arrieta DO Other Provider Ab UGARTE, Dr. Whitehead Other Provider Javan UGARTE, Dr. Balderrama Other Provider Matheus UGARTE, Dr. Grimes Other Provider Dr. Marty Hopkins MD Other Provider Scott UGARTE, Dr. Lujan Other Provider Alvaro UGARTE, Dr. Garcia Other Provider [phone] Karyna Gates MD Other Provider Angel Luis [...] Dr. Osborne Other Provider Zeferino UGARTE, Dr. Luan Attending Provider Zeferino UAGRTE, Dr. Luna Referring Provider Mark UGARTE, Dr. Vincent Cardozo Primary Care Provider [phone] Ha DO, Dr. Malave Referring Provider Jesika Flores MD, Dr. Vincent Cardozo Attending Provider Dr. Juan Diego Huynh MD Attending Provider Wilman CURRY, Dr. Osborne Referring Provider Mark UGARTE, Dr. Vincent Cardozo Referring Provider [phone] Pau Davis Attending Provider Unavailable Bird UGARTE, Dr. Curran Emergency Provider Bharat BRAND STRATEGY MANAGER-C, [facility] Primary Care Provider Piero UGARTE, Dr. Durán [...] Provider Dr. Tacos Edouard MD Other Provider Matheus UGARTE, Dr. Grimes Other Provider Sandeep UGARTE, Dr. Ferguson Other Provider Soctt UGARTE, Dr. Lujan Other Provider Alvaro UGARTE, [...] Flores MD, Chi Primary Care Provider [phone] Mark UGARTE, Dr. Vincent Cardozo Attending Provider [...] Hari UGARTE, Dr. Larios Referring Provider Bharat BRAND STRATEGY MANAGER-C, Deysi Primary Care Physician Piero UGARTE, Dr. Durán Emergency Department Physician Arron UGARTE, Dr. Garcia Admitting Physician Arron UGARTE, Dr. Garcia Nurse Practitioner Wilman CURRY, Dr. Osborne Attending Physician Zeferino UGARTE, Dr. Luna Nurse Practitioner Karolina UGARTE, Dr. Mcbride Attending Physician Sonam UGARTE, Dr. Purvis Attending Physician Mirza UGARTE, Teo Nurse Practitioner Unavailable Nolan UGARTE, Dr. Portillo Nurse Practitioner [phone] Mo UGARTE, Yamileth Nurse Practitioner Unavail zacarias Arrieta DO, Dr. Rocha Nurse Practitioner Ab UGARTE, Dr. Whitehead Nurse Practitioner Javan UGARTE, Dr. Balderrama Nurse Practitioner Matheus UGARTE, Dr. Grimes Nurse Practitioner Dr. Marty Hopkins MD Nurse Practitioner [phone] Tai Chavez MD Nurse Practitioner Alvaro UGARTE, Dr. Garcia Nurse Practitioner Karyna Gates MD Nurse Practitioner [phone] Angel Luis UGARTE, Dr. Mosqueda Nurse Practitioner [...] Practitioner Zeferino UGARTE, Dr. Luna Attending Physician [phone] Mark UGARTE, Dr. Vincent Cardozo Primary Care [...] Dr. Ric Noriega MD Referring Provider Bharat BRAND STRATEGY MANAGER-C, [facility] Primary Care Physician Dr. Luis Armando Harry MD Emergency Department Physician Arron UGARTE, Dr. Garcia Admitting Physician Arron UGARTE, Dr. Garcia Nurse Practitioner Wilman CURRY, Dr. Osborne Attending Physician Wilman CURRY, Dr. Osborne Nurse Practitioner Zeferino UGARTE, Dr. Luna Nurse Practitioner Zeferino UGARTE, Dr. Luna Attending Physician [phone] Zeferino UGARTE, Dr. Luna Referring Provider Mark [...] Mark, Vincent Chi Primary Care Unavailable Sonam [place] Referring Unavailable Yaniv Masters Attending Unavailable Mark, [...] Hein Consulting Unavailable Chelsi Pulido Consulting Unavailable Ridfani, Lili Consulting Unavailable Zain, Alonsod Jesus Alberto Consulting UnavailJonathan Durant Consulting Unavailable Lucia, Rambecca Consulting Unavailable JuanpabloMonie portillohil Consulting Unavailable Noris Brock Consulting Unavailable Hannamamta, Yousecarlos a Consulting Unavailable Haagen, Deysi Primary Care Unavailable Sonam, [place] Attending Unavailable Mark, Vincent Chi Primary Care [...] Mark, Vincent Chi Primary Care Unavailable Sonam, [place] Attending Unavailable Sonam, [place] Referring Unavailable Mark, Vincent Chi Primary Care Unavailable Mark, Vincent Chi Attending Unavailable Allergies Allergy Classification Reported Allergen(s) Allergy Type Date of Onset Reaction(s) Facility (2 sources) metFORMIN Drug Allergy 4 Counts include 234 beds at the [facility] (20 sources) Protamines; Translations: [PROTAMINE] Drug Allergy 2 Anaphylaxis [facility] Work Phone: (20 sources) Propofol; Translations: [PROPOFOL] Drug Allergy 3 Other: See Comments [facility] (1 source) Propofol Drug Allergy 5 [facility] Repository Medications Current Medications Medication Drug [...] once daily. Take 2 tablets by mo [facility] once daily. Take 1 tablet [...] in NaCl (PF) 0.9% 10 mL injection (Voice Assist) polysaccharide iron complex 150 mg oral capsule [...] Drug Class(es) Dates Sig (Normalized) Sig (Original) [id number] actuat albuterol 0.09 mg/actuat metered dose [...] on above: Take 1 capsule by mo [facility] once daily. clopidogrel 75 mg oral tablet [...] 5 days. Take 2 tablets by mo [facility] once daily. iv contrast (will [...] on above: Take 1 capsule by mo [facility] once daily. pantoprazole 40 mg delayed release [...] on above: Take 2 tablets by mo [facility] once daily for 5 days. 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; Translations: [long-term (current) use of antithrombotics/antipl atelets] Onset: 2 03-21-2022 Episodic Other aftercare (20 sources) Acquired platelet function disorder; Translations: [long-term (current) use of antithrombotics/antipl atelets] Onset: 2 [...] Visit Reporton Cardiology Visit Report Normal [facility] Absolute lymphocyte countOrd ered By: Vincent Flores on 05-02-2025 Lymphocytes Auto (Unsp spec) [#/Vol] 1.70 10*3/uL 0.83-4.51 [facility] Anion gap in Serum or Plasma Ordered By: Vincent Flores on 05-02-2025 Anion gap [Moles/Vol] 15 mmol/L - [facility] Automated lymphocyte count a s percentage of total leukocytesOrdered By: Vincent Flores on 05-02-2025 Lymphocytes/100 WBC Auto (Unsp spec) 25.9 % - [facility] BUN/creatinine ratioOrdered By: Vincent Flores on 05-02-2025 Urea nitrogen/Creatinine [Mass ratio] 39.5 mg/mg High 10- [facility] Basophil percentageOrdered B y: Vincent Flores on 05-02-2025 Basophils/100 WBC (Bld) 0.6 % 0-1 [facility] Bilirubin, totalOrdered By: Vincent Flores on 05-02-2025 Bilirubin [Mass/Vol] 0.96 mg/dL 0.00-1.30 [facility] CBC W/Diff, Automatedon 04-05 Anisocytosis Ql (Bld) 1+ Normal [facility] Comment on above: Performed By: #### L 501.9541, L500.4050, L100.0100, L506.1001 ####[facility] [address] [place], [place], [id number] Carbon dioxide, total [Moles /volume] in Central venous bloodOrdered By: Vincent Flores on 05-02-2025 CO2 [Moles/Vol] 27.1 mmol/L 21.0-32.0 [facility] Chloride assayOrdered By: Ishmael Flores on 05-02-2025 Chloride [Moles/Vol] 90 mmol/L Low 98-108 [facility] Comprehensive Metabolic Prof ilon 05-02-2025 Albumin [Mass/Vol] 4.0 g/dL Normal 3.4-4.8 [facility] Comment on above: Performed By: #### L 501.9520, L500.4050, L100.0100, L506.1001 ####[facility] [address] [place], [address] Albumin/Globulin [Mass ratio] 1.2 {ratio} Normal 0.9-2.4 [facility] Comment on above: Performed By: #### L 501.9520, L500.4050, L100.0100, L506.1001 ####[facility] [address] [place], [address] ALK PHOS 104 U/L Normal 35-104 [facility] Comment on above: Performed By: #### L 501.9520, L500.4050, L100.0100, L506.1001 ####[facility] [address] [place], [address] ALT [Catalytic activity/Vol] 13 U/L Normal <=34 [facility] Comment on above: Performed By: #### L 501.9520, L500.4050, L100.0100, L506.1001 ####[facility] [address] [place], [address] AST [Catalytic activity/Vol] 31 U/L Normal <=31 [facility] Comment on above: Performed By: #### L 501.9520, L500.4050, L100.0100, L506.1001 ####[facility] [address] [place], [address] Bilirubin [Mass/Vol] 0.96 mg/dL Normal 0.00-1.30 [facility] Comment on above: Performed By: #### L 501.9520, L500.4050, L100.0100, L506.1001 ####[facility] [address] [place], [address] BUN/CRE 39.5 RATIO High 10-20 [facility] Comment on above: Performed By: #### L 501.9520, L500.4050, L100.0100, L506.1001 ####[facility] [address] [place], [address] Calcium [Mass/Vol] 9.6 mg/dL Normal 7.6-11.0 [facility] Comment on above: Performed By: #### L 501.9520, L500.4050, L100.0100, L506.1001 ####[facility] [address] [place], [address] Chloride [Moles/Vol] 90 mmol/L Low 98-108 [facility] Comment on above: Performed By: #### L 501.9520, L500.4050, L100.0100, L506.1001 ####[facility] [address] [place], [address] CO2 [Moles/Vol] 27.1 mmol/L Normal 21.0-32.0 [facility] Comment on above: Performed By: #### L 501.9520, L500.4050, L100.0100, L506.1001 ####[facility] [address] [place], [address] Creatinine [Mass/Vol] 1.86 mg/dL High 0.70-1.20 [facility] Comment on above: Performed By: #### L 501.9520, L500.4050, L100.0100, L506.1001 ####[facility] [address] [place], [address] GAP 15 Normal 5-15 [facility] Comment on above: Performed By: #### L 501.9520, L500.4050, L100.0100, L506.1001 ####[facility] [address] [place], [address] GFR/1.73 sq M.predicted among non-blacks MDRD (S/P/Bld) [Vol rate/Area] 27 mL/min/{1.73_m2} Low >60 [facility] Comment on above: Result Comment: mL/m in/1.73m2 CKD-EPI Creatinine Equation (2020) Performed By: #### L 501.9520, L500.4050, L100.0100, L506.1001 ####[facility] [address] [place], [address] Globulin (S) [Mass/Vol] 3.3 g/dL Normal 2.2-4.2 [facility] Comment on above: Performed By: #### L 501.9520, L500.4050, L100.0100, L506.1001 ####[facility] [address] [place], [address] Glucose [Mass/Vol] 142 mg/dL High 70-99 [facility] Comment on above: Performed By: #### L 501.9520, L500.4050, L100.0100, L506.1001 ####[facility] [address] [place], [address] Potassium [Moles/Vol] 3.6 mmol/L Normal 3.3-5.1 [facility] Comment on above: Performed By: #### L 501.9520, L500.4050, L100.0100, L506.1001 ####[facility] [address] [place], [address] Sodium [Moles/Vol] 132 mmol/L Low 133-145 [facility] Comment on above: Performed By: #### L 501.9520, L500.4050, L100.0100, L506.1001 ####[facility] [address] [place], [address] T PROT 7.3 g/dL Normal 5.9-8.4 [facility] Comment on above: Performed By: #### L 501.9520, L500.4050, L100.0100, L506.1001 ####[facility] [address] [place], [address] Urea nitrogen [Mass/Vol] 73 mg/dL High 4-19 [facility] Comment on above: Performed By: #### L 501.9520, L500.4050, L100.0100, L506.1001 ####[facility] [address] [place], [address] Eosinophil percentageOrdered By: Vincent Flores on 05-02-2025 Eosinophils/100 WBC (Bld) 0.9 % 0-5 [facility] Erythrocyte distribution wid th ratioOrdered By: Vincent Flores on 05-02-2025 Erythrocyte distribution width (RBC) [Ratio] 22.2 % High 11.6-14.6 [facility] Erythrocyte distribution wid th standard deviationOrdered By: Vincent Flores on 05-02-2025 Erythrocyte distribution width (RBC) [Ratio] 77.4 fl High 35.1-43.9 [facility] Glomerular filtration rate ( GFR) estimation/1.73 sq m using serum, plasma, or whole bOrdered By: Vincent Flores on 05-02-2025 GFR/1.73 sq M.predicted among non-blacks MDRD (S/P/Bld) [Vol rate/Area] 27 mL/min/{1.73_m2} Low >60 [facility] Hematocrit Auto (Bld) [Volum e fraction]Ordered By: Vincent Flores on 05-02-2025 Hematocrit (Bld) [Volume fraction] 33.7 % Low 37-47 [facility] Hemoglobin measurementOrdere d By: Vincent Flores on 05-02-2025 Hemoglobin (Bld) [Mass/Vol] 11.0 g/dL Low 12.0-15.0 [facility] Immature granulocytes/100 WB C Auto (Bld)Ordered By: Vincent Flores on 05-02-2025 Immature granulocytes/100 WBC (Bld) 0.600 % 0.0-0.9 [facility] MCV (mean corpuscular volume ) determinationOrdered By: Vincent Flores on 05-02-2025 MCV (RBC) [Entitic vol] 93.9 fL 81-99 [facility] Mean corpuscular hemoglobin (MCH) determinationOrdered By: Vincent Flores on 05-02-2025 MCH (RBC) [Entitic mass] 30.6 pg 27.0-32.0 [facility] Monocyte percentageOrdered B y: Vincent Flores on 05-02-2025 Monocytes/100 WBC (Bld) 14.0 % High 0-10 [facility] Neutrophil percentageOrdered By: Vincent Flores on 05-02-2025 Neutrophils/100 WBC (Bld) 58.0 % 47-70 [facility] No Panel InformationOrdered By: Vincent Flores on 05-02-2025 1+ [facility] 31 U/L <32 [facility] Platelet countOrdered By: Ishmael Flores on 05-02-2025 Platelets (Bld) [#/Vol] 131 10*3/uL Low 150-450 [facility] Potassium measurement (mass/ volume)Ordered By: Vincent Flores on 05-02-2025 Potassium (Unsp spec) [Mass/Vol] 3.6 mmol/L 3.3-5.1 [facility] RBC Auto (Bld) [#/Vol]Ordere d By: Vincent Flores on 05-02-2025 RBC (Bld) [#/Vol] 3.59 10*6/uL Low 4.2-5.4 [facility] Serum creatinine measurement (mass/volume)Ordered By: Vincent Flores on 05-02-2025 Creatinine [Mass/Vol] 1.86 mg/dL High 0.70-1.20 [facility] Serum globulin measurementOr dered By: Vincent Flores on 05-02-2025 Globulin (S) [Mass/Vol] 3.3 g/dL 2.2-4.2 [facility] Serum glucose measurement (m ass/volume)Ordered By: Vincent Flores on 05-02-2025 Glucose [Mass/Vol] 142 mg/dL High 70-99 [facility] Serum or plasma alanine craven otransferase (ALT) measurementOrdered By: Vincent Flores on 05-02-2025 ALT [Catalytic activity/Vol] 13 U/L <35 [facility] Serum or plasma albumin bijan urement (mass/volume)Ordered By: Vincent Flores on 05-02-2025 Albumin [Mass/Vol] 4.0 g/dL 3.4-4.8 [facility] Serum or plasma albumin/glob ulin mass ratioOrdered By: Vincent Flores on 05-02-2025 Albumin/Globulin [Mass ratio] 1.2 {ratio} 0.9-2.4 [facility] Serum or plasma alkaline da sphatase measurementOrdered By: Vincent Flores on 05-02-2025 ALP [Catalytic activity/Vol] 104 U/L 35-104 [facility] Serum or plasma calcium bijan urement (mass/volume)Ordered By: Vincent Flores on 05-02-2025 Calcium [Mass/Vol] 9.6 mg/dL 7.6-11.0 [facility] Serum or plasma urea nitroge n measurement (mass/volume)Ordered By: Vincent Flores on 05-02-2025 Urea nitrogen [Mass/Vol] 73 mg/dL High 4-19 [facility] Sodium levelOrdered By: Vincent Flores on 05-02-2025 Sodium [Moles/Vol] 132 mmol/L Low 133-145 [facility] TSH DL <= 0.005 mIU/L QnOrde red By: Vincent Flores on 05-02-2025 TSH Qn 3.250 uIU/mL 0.300-4.200 [facility] Thyroid Stim Hormone (TSH)on 05-02-2025 TSH 3.250 uIU/mL Normal 0.300-4.200 [facility] Comment on above: Performed By: #### L 501.8067, L500.4050, L100.0100, L506.1001 ####[facility] [address] [place], [place], [id number] Total proteinOrdered By: Vincent Flores on 05-02-2025 Protein [Mass/Vol] 7.3 g/dL 5.9-8.4 [facility] Vitamin D,25 Hydroxyon 05-02 Vitamin D 25-OH 35.0 ng/mL Normal 30-100 [facility] Comment on above: Result Comment: Haydee min D StatusDeficiency: <20 ng/mL (50nmol/L)Insufficiency: 20-30 ng/mL (50-75 nmol/L)Sufficiency: 30-100 ng/mL (75-250 nmol/L)Toxicity: >100 ng/mL (>250 nmol/L) Performed By: #### L 501.9520, L500.4050, L100.0100, L506.1001 ####[facility] [address] [place], [address] White blood cell (WBC) count Ordered By: Vincent Flores on 05-02-2025 WBC (Bld) [#/Vol] 6.6 10*3/uL 4.4-11.0 [facility] Absolute lymphocyte countOrd ered By: Ric Noriega on 04-24-2025 Lymphocytes Auto (Unsp spec) [#/Vol] 1.46 10*3/uL 0.83-4.51 [facility] Automated lymphocyte count a s percentage of total leukocytesOrdered By: Ric Noriega on 04-24-2025 Lymphocytes/100 WBC Auto (Unsp spec) 26.4 % 19-41 [facility] Basophil percentageOrdered B y: Ric Noriega on 04-24-2025 Basophils/100 WBC (Bld) 0.7 % 0-1 [facility] CBC W/Diff, Automatedon 04-05 Absolute Lymph 1.46 X10 3/uL Normal 0.83-4.51 [facility] Comment on above: Performed By: #### L 503.0950, L503.6030, L100.0100, L100.9950 ####[facility] [address] [place], [address] Absolute Neut 3.2 X10 3/uL Normal 2.0-7.7 [facility] Comment on above: Performed By: #### L 503.6550, L503.6030, L100.0100, L100.9950 ####[facility] [address] [place], [address] Basophils/100 WBC (Bld) 0.7 % Normal 0-1 [facility] Comment on above: Performed By: #### L 503.6550, L503.6030, L100.0100, L100.9950 ####[facility] [address] [place], [address] Eosinophils/100 WBC (Bld) 1.3 % Normal 0-5 [facility] Comment on above: Performed By: #### L 503.6550, L503.6030, L100.0100, L100.9950 ####[facility] [address] [place], [address] Erythrocyte distribution width (RBC) [Ratio] 22.7 % High 11.6-14.6 [facility] Comment on above: Performed By: #### L 503.6550, L503.6030, L100.0100, L100.9950 ####[facility] [address] [place], [address] Hematocrit (Bld) [Volume fraction] 33.0 % Low 37-47 [facility] Comment on above: Performed By: #### L 503.6550, L503.6030, L100.0100, L100.9950 ####[facility] [address] [place], [address] Hemoglobin (Bld) [Mass/Vol] 10.6 g/dL Low 12.0-15.0 [facility] Comment on above: Performed By: #### L 503.6550, L503.6030, L100.0100, L100.9950 ####[facility] [address] [place], [address] IG% 0.400 Normal 0.0-0.9 [facility] Comment on above: Result Comment: IG% - Immature Granulocytes (promyelocytes, myelocytes andmetamyelocytes) > 1% indicates that a LEFT SHIFT is Present. Performed By: #### L 503.6550, L503.6030, L100.0100, L100.9950 ####[facility] [address] [place], [address] Lymphocytes/100 WBC (Bld) 26.4 % Normal 19-41 [facility] Comment on above: Performed By: #### L 503.6550, L503.6030, L100.0100, L100.9950 ####[facility] [address] [place], [address] MCH (RBC) [Entitic mass] 30.4 pg Normal 27.0-32.0 [facility] Comment on above: Performed By: #### L 503.6550, L503.6030, L100.0100, L100.9950 ####[facility] [address] [place], [address] MCHC (RBC) [Mass/Vol] 32.1 g/dL Normal 32-36 [facility] Comment on above: Performed By: #### L 503.6550, L503.6030, L100.0100, L100.9950 ####[facility] [address] [place], [address] MCV (RBC) [Entitic vol] 94.6 fL Normal 81-99 [facility] Comment on above: Performed By: #### L 503.6550, L503.6030, L100.0100, L100.9950 ####[facility] [address] [place], [address] Monocytes/100 WBC (Bld) 12.7 % High 0-10 [facility] Comment on above: Performed By: #### L 503.6550, L503.6030, L100.0100, L100.9950 ####[facility] [address] [place], [address] Neutrophils/100 WBC (Bld) 58.5 % Normal 47-70 [facility] Comment on above: Performed By: #### L 503.6550, L503.6030, L100.0100, L100.9950 ####[facility] [address] [place], [address] Nucleated RBC (Bld) [#/Vol] 0 10*3/uL Normal 0-5 [facility] Comment on above: Performed By: #### L 503.6550, L503.6030, L100.0100, L100.9950 ####[facility] [address] [place], [address] Platelet mean volume (Bld) [Entitic vol] 9.2 fL Normal 6.2-12.0 [facility] Comment on above: Performed By: #### L 503.6550, L503.6030, L100.0100, L100.9950 ####[facility] [address] [place], [address] Platelets (Bld) [#/Vol] 108 10*3/uL Low 150-450 [facility] Comment on above: Performed By: #### L 503.6550, L503.6030, L100.0100, L100.9950 ####[facility] [address] [place], [address] RBC (Bld) [#/Vol] 3.49 10*6/uL Low 4.2-5.4 [facility] Comment on above: Performed By: #### L 503.6550, L503.6030, L100.0100, L100.9950 ####[facility] [address] [place], [address] RDW SD 80.4 fl High 35.1-43.9 [facility] Comment on above: Performed By: #### L 503.6550, L503.6030, L100.0100, L100.9950 ####[facility] [address] [place], [address] WBC (Bld) [#/Vol] 5.5 10*3/uL Normal 4.4-11.0 [facility] Comment on above: Performed By: #### L 503.6550, L503.6030, L100.0100, L100.9950 ####[facility] [address] [place], [address] Eosinophil percentageOrdered By: Ric Noriega on 04-24-2025 Eosinophils/100 WBC (Bld) 1.3 % 0-5 [facility] Erythrocyte distribution wid th ratioOrdered By: [facility] Noriega on 04-24-2025 Erythrocyte distribution width (RBC) [Ratio] 22.7 % High 11.6-14.6 [facility] Erythrocyte distribution wid th standard deviationOrdered By: [facility] Noriega on 04-24-2025 Erythrocyte distribution width (RBC) [Ratio] 80.4 fl High 35.1-43.9 [facility] Ferritinon 04-24-2025 Ferritin [Mass/Vol] 135 ng/mL Normal 22-378 [facility] Comment on above: Performed By: #### L 503.6550, L503.6030, L100.0100, L100.9950 ####[facility] [address] [place], [address] Hematocrit Auto (Bld) [Volum e fraction]Ordered By: Ric Noriega on 04-24-2025 Hematocrit (Bld) [Volume fraction] 33.0 % Low 37-47 [facility] Hemoglobin measurementOrdere d By: Ric Noriega on 04-24-2025 Hemoglobin (Bld) [Mass/Vol] 10.6 g/dL Low 12.0-15.0 [facility] Immature granulocytes/100 WB C Auto (Bld)Ordered By: Ric Noriega on 04-24-2025 Immature granulocytes/100 WBC (Bld) 0.400 % 0.0-0.9 [facility] Iron measurement (mass/mass) Ordered By: Ric Noriega on 04-24-2025 Iron (Unsp spec) [Mass/Mass] 119 ug/dL 50-170 [facility] Iron+Iron Binding Capacityon 04-24-2025 Iron [Mass/Vol] 119 ug/dL Normal 50-170 [facility] Comment on above: Performed By: #### L 503.6550, L503.6030, L100.0100, L100.9950 ####[facility] [address] [place], [address] IRON SATURATION 30.0 Normal 13-59 [facility] Comment on above: Performed By: #### L 503.6550, L503.6030, L100.0100, L100.9950 ####[facility] [address] [place], [address] TIBC 397 ug/dL Normal 250-450 [facility] Comment on above: Performed By: #### L 503.6550, L503.6030, L100.0100, L100.9950 ####[facility] [address] [place], [address] UIBC 278 ug/dL Normal 228-428 [facility] Comment on above: Performed By: #### L 503.6550, L503.6030, L100.0100, L100.9950 ####[facility] [address] [place], [address] MCV (mean corpuscular volume ) determinationOrdered By: Ric Noriega on 04-24-2025 MCV (RBC) [Entitic vol] 94.6 fL 81-99 [facility] Mean corpuscular hemoglobin (MCH) determinationOrdered By: Ric Noriega on 04-24-2025 MCH (RBC) [Entitic mass] 30.4 pg 27.0-32.0 [facility] Monocyte percentageOrdered B y: Ric Noriega on 04-24-2025 Monocytes/100 WBC (Bld) 12.7 % High 0-10 [facility] Neutrophil percentageOrdered By: Ric Agudelokelly on 04-24-2025 Neutrophils/100 WBC (Bld) 58.5 % 47-70 [facility] No Panel InformationOrdered By: Ric Agudelokelly on 04-24-2025 278 ug/dL 228-428 [facility] Oncology Visit Reporton 04-05 Oncology Visit Report Normal [facility] Platelet countOrdered By: Beryl oh Hari on 04-24-2025 Platelets (Bld) [#/Vol] 108 10*3/uL Low 150-450 [facility] RBC Auto (Bld) [#/Vol]Ordere d By: Ric Agudelokelly on 04-24-2025 RBC (Bld) [#/Vol] 3.49 10*6/uL Low 4.2-5.4 [facility] Retic Panelon 04-24-2025 IM RET FRACTION 13.80 Normal 3.00-15.90 [facility] Comment on above: Performed By: #### L 503.6550, L503.6030, L100.0100, L100.9950 ####[facility] [address] [place], [place], [id number] RET-HE 30.4 pg Normal 30-35 [facility] Comment on above: Performed By: #### L 503.6550, L503.6030, L100.0100, L100.9950 ####[facility] [address] [place], [place], [id number] Retic Count 1.82 High 0.5-1.5 [facility] Comment on above: Performed By: #### L 503.6550, L503.6030, L100.0100, L100.9950 ####[facility] [address] [place], [place], [id number] Reticulocyte hemoglobin equi valent (RET-He) measurementOrdered By: Abirubin Noriega on 04-24-2025 Hemoglobin (Reticulocytes) [Entitic mass] 30.4 pg 30-35 [facility] Reticulocytes Auto (Bld) [#/ Vol]Ordered By: [facility] on 04-24-2025 Reticulocytes/100 RBC (Bld) 1.82 % High 0.5-1.5 [facility] Serum or plasma ferritin austin surement (mass/volume)Ordered By: [facility] Hari on 04-24-2025 Ferritin [Mass/Vol] 135 ng/mL 22-378 [facility] Serum or plasma iron saturat ion measurement (mass fraction)Ordered By: [facility] 04-[facility]-2025 Iron saturation [Mass fraction] 30.0 % 13-59 [facility] White blood cell (WBC) count Ordered By: [facility] Hari on 04-24-2025 WBC (Bld) [#/Vol] 5.5 10*3/uL 4.4-11.0 [facility] Wound Ctr History AND Physic apollo 04-23-2025 Wound Ctr History & Physical Normal [facility] Culture, Anaerobic Any Sourc andie 04-08-2025 CUAN No anaerobic bacteri a isolated. [facility] Comment on above: Performed By: #### L 8200.1075, M100.2000, M100.4001, M100.3000 ####[facility] [address] [place], [place], [id number] Wound Cultureon 04-04-2025 WC Normal [facility] Comment on above: Performed By: #### L 8200.1075, M100.2000, M100.4001, M100.3000 ####[facility] [address] [facility] [place], [place], [phone] Gram Stainon 04-03-2025 GS Acceptable Specimen? Yes (<25 Epithelial cells per/lpf) Gram Stain 2+ White Blood Cells 1+ Red Blood Cells No Epithelial cells 1+ Gram positive cocci Normal [facility] Comment on above: Performed By: #### L 8200.1075, M100.2000, M100.4001, M100.3000 ####[facility] [address] [place], [address] Anaerobic cultureOrdered By: Vincent Flores on 04-02-2025 Bacteria identified Anaer cx Nom (Unsp spec) No anaerobic bacteria isolated. [facility] Gram stainOrdered By: Vincent cintron on 04-02-2025 Microscopic observation Gram stain Nom (Unsp spec) [facility] Microscopic observation Gram stain Nom (Unsp spec) [facility] MRSA Wound DNA by PCRon 03-06 MRSA DNA ASSAY Negative Normal Negative [facility] Comment on above: Order Comment: RIGHT ARM Performed By: #### L 8200.1075, M100.2000, M100.4001, M100.3000 ####[facility] [address] [place], [address] SA DNA ASSAY Positive Abnormal Negative [facility] Comment on above: Order Comment: RIGHT ARM Performed By: #### L 8200.1075, M100.2000, M100.4001, M100.3000 ####[facility] [address] [place], [address] Staphylococcus aureus DNA de tection by probe and target amplification methodOrdered By: Vincent Flores on 04-02-2025 S. aureus DNA RANDOLPH+probe Ql (Unsp spec) Positive High Negative [facility] Emergency Department Summary on 03-22-2025 Emergency Department Summary Normal [facility] Erythropoietinon 03-15-2025 ERYTHROPOIETIN 190.9 mIU/mL High 2.6-18.5 [facility] Comment on above: Result Comment: IPPLEXel DxI 800 Immunoassay SystemValues obtained with different assay methods or kits cannotbe used interchangeably. Results cannot be interpreted asabsolute evidence of the presence or absence of malignantdisease.Performed at: [address] [id number] Director: Chuy Rizvi PhD, Phone: [phone] Performed By: #### L 100.9950, L100.0100, L3100.1350, L503.6550, L503.0106, L503.6030, L500.4050 ####[facility] [address] [place], [address] Absolute lymphocyte countOrd ered By: Ric Noriega on 03-13-2025 Lymphocytes Auto (Unsp spec) [#/Vol] 1.60 10*3/uL 0.83-4.51 [facility] Anion gap in Serum or Plasma Ordered By: Ric Noriega on 03-13-2025 Anion gap [Moles/Vol] 16 mmol/L High 5-15 [facility] Automated lymphocyte count a s percentage of total leukocytesOrdered By: Ric Noriega on 03-13-2025 Lymphocytes/100 WBC Auto (Unsp spec) 24.2 % 19-41 [facility] BUN/creatinine ratioOrdered By: Ric Noriega on 03-13-2025 Urea nitrogen/Creatinine [Mass ratio] 24.6 mg/mg High 10-20 [facility] Basophil percentageOrdered B y: Ric Noriega on 03-13-2025 Basophils/100 WBC (Bld) 0.9 % 0-1 [facility] Bilirubin, totalOrdered By: Ric Noriega on 03-13-2025 Bilirubin [Mass/Vol] 1.04 mg/dL 0.00-1.30 [facility] Blood manual differential co mment interpretation (narrative result)Ordered By: Ric Noriega on 03-13-2025 Manual differential comment Cristhian (Bld) [Interp] SCANNED [facility] Blood polychromasia detectio n by light microscopyOrdered By: [facility] Noriega on 03-13-2025 Polychromasia LM Ql (Bld) 1+ [facility] CBC W/Diff, Automatedon Anisocytosis Ql (Bld) 2+ Normal [facility] Comment on above: Performed By: #### L 100.9950, L100.0100, L3100.1350, L503.6550, L503.0106, L503.6030, L500.4050 ####[facility] [address] [place], [address] POLYCHROMASIA 1+ Normal [facility] Comment on above: Performed By: #### L 100.9950, L100.0100, L3100.1350, L503.6550, L503.0106, L503.6030, L500.4050 ####[facility] [address] [place], [address] PLT EST ADEQUATE Normal ADEQ [facility] Comment on above: Performed By: #### L 100.9950, L100.0100, L3100.1350, L503.6550, L503.0106, L503.6030, L500.4050 ####[facility] [address] [place], [address] SMEAR COMMENT SCANNED Normal [facility] Comment on above: Performed By: #### L 100.9950, L100.0100, L3100.1350, L503.6550, L503.0106, L503.6030, L500.4050 ####[facility] [address] [place], [address] Carbon dioxide, total [Moles /volume] in Central venous bloodOrdered By: Ric Noriega on 03-13-2025 CO2 [Moles/Vol] 24.4 mmol/L 21.0-32.0 [facility] Chloride assayOrdered By: Beryl Noriega on 03-13-2025 Chloride [Moles/Vol] 92 mmol/L Low 98-108 [facility] Comprehensive Metabolic Prof ilon 03-13-2025 Albumin [Mass/Vol] 4.0 g/dL Normal 3.4-4.8 [facility] Comment on above: Performed By: #### L 100.9950, L100.0100, L3100.1350, L503.6550, L503.0106, L503.6030, L500.4050 ####[facility] [address] [place], [address] Albumin/Globulin [Mass ratio] 1.2 {ratio} Normal 0.9-2.4 [facility] Comment on above: Performed By: #### L 100.9950, L100.0100, L3100.1350, L503.6550, L503.0106, L503.6030, L500.4050 ####[facility] [address] [place], [address] ALK PHOS 136 U/L High 35-104 [facility] Comment on above: Performed By: #### L 100.9950, L100.0100, L3100.1350, L503.6550, L503.0106, L503.6030, L500.4050 ####[facility] [address] [place], [address] ALT [Catalytic activity/Vol] 16 U/L Normal <=34 [facility] Comment on above: Performed By: #### L 100.9950, L100.0100, L3100.1350, L503.6550, L503.0106, L503.6030, L500.4050 ####[facility] [address] [place], [address] AST [Catalytic activity/Vol] 33 U/L High <=31 [facility] Comment on above: Performed By: #### L 100.9950, L100.0100, L3100.1350, L503.6550, L503.0106, L503.6030, L500.4050 ####[facility] [address] [place], [address] Bilirubin [Mass/Vol] 1.04 mg/dL Normal 0.00-1.30 [facility] Comment on above: Performed By: #### L 100.9950, L100.0100, L3100.1350, L503.6550, L503.0106, L503.6030, L500.4050 ####[facility] [address] [place], [address] BUN/CRE 24.6 RATIO High 10-20 [facility] Comment on above: Performed By: #### L 100.9950, L100.0100, L3100.1350, L503.6550, L503.0106, L503.6030, L500.4050 ####[facility] [address] [place], [address] Calcium [Mass/Vol] 9.2 mg/dL Normal 7.6-11.0 [facility] Comment on above: Performed By: #### L 100.9950, L100.0100, L3100.1350, L503.6550, L503.0106, L503.6030, L500.4050 ####[facility] [address] [place], [address] Chloride [Moles/Vol] 92 mmol/L Low 98-108 [facility] Comment on above: Performed By: #### L 100.9950, L100.0100, L3100.1350, L503.6550, L503.0106, L503.6030, L500.4050 ####[facility] [address] [place], [address] CO2 [Moles/Vol] 24.4 mmol/L Normal 21.0-32.0 [facility] Comment on above: Performed By: #### L 100.9950, L100.0100, L3100.1350, L503.6550, L503.0106, L503.6030, L500.4050 ####[facility] [address] [place], [address] Creatinine [Mass/Vol] 2.12 mg/dL High 0.70-1.20 [facility] Comment on above: Performed By: #### L 100.9950, L100.0100, L3100.1350, L503.6550, L503.0106, L503.6030, L500.4050 ####[facility] [address] [place], [address] GAP 16 High 5-15 [facility] Comment on above: Performed By: #### L 100.9950, L100.0100, L3100.1350, L503.6550, L503.0106, L503.6030, L500.4050 ####[facility] [address] [place], [address] GFR/1.73 sq M.predicted among non-blacks MDRD (S/P/Bld) [Vol rate/Area] 23 mL/min/{1.73_m2} Low >60 [facility] Comment on above: Result Comment: mL/m in/1.73m2 CKD-EPI Creatinine Equation (2020) Performed By: #### L 100.9950, L100.0100, L3100.1350, L503.6550, L503.0106, L503.6030, L500.4050 ####[facility] [address] [place], [place], [phone]) Globulin (S) [Mass/Vol] 3.3 g/dL Normal 2.2-4.2 [facility] Comment on above: Performed By: #### L 100.9950, L100.0100, L3100.1350, L503.6550, L503.0106, L503.6030, L500.4050 ####[facility] [address] [place], [place], [phone]) Glucose [Mass/Vol] 139 mg/dL High 70-99 [facility] Comment on above: Performed By: #### L 100.9950, L100.0100, L3100.1350, L503.6550, L503.0106, L503.6030, L500.4050 ####[facility] [address] [place], [address] Potassium [Moles/Vol] 3.8 mmol/L Normal 3.3-5.1 [facility] Comment on above: Performed By: #### L 100.9950, L100.0100, L3100.1350, L503.6550, L503.0106, L503.6030, L500.4050 ####[facility] [address] [place], [address] Sodium [Moles/Vol] 132 mmol/L Low 133-145 [facility] Comment on above: Performed By: #### L 100.9950, L100.0100, L3100.1350, L503.6550, L503.0106, L503.6030, L500.4050 ####[facility] [address] [place], [address] T PROT 7.3 g/dL Normal 5.9-8.4 [facility] Comment on above: Performed By: #### L 100.9950, L100.0100, L3100.1350, L503.6550, L503.0106, L503.6030, L500.4050 ####[facility] [address] [place], [address] Urea nitrogen [Mass/Vol] 52 mg/dL High 4-19 [facility] Comment on above: Performed By: #### L 100.9950, L100.0100, L3100.1350, L503.6550, L503.0106, L503.6030, L500.4050 ####[facility] [address] [place], [address] Eosinophil percentageOrdered By: Ric Noriega on 03-13-2025 Eosinophils/100 WBC (Bld) 1.2 % 0-5 [facility] Erythrocyte distribution wid th ratioOrdered By: Ric Noriega on 03-13-2025 Erythrocyte distribution width (RBC) [Ratio] 25.2 % High 11.6-14.6 [facility] Erythrocyte distribution wid th standard deviationOrdered By: Ric Noriega on 03-13-2025 Erythrocyte distribution width (RBC) [Ratio] 82.1 fl High 35.1-43.9 [facility] Ferritinon 03-13-2025 Ferritin [Mass/Vol] 48 ng/mL Normal 22-378 [facility] Comment on above: Performed By: #### L 100.9950, L100.0100, L3100.1350, L503.6550, L503.0106, L503.6030, L500.4050 ####[facility] [address] [place], [place], [id number] Glomerular filtration rate ( GFR) estimation/1.73 sq m using serum, plasma, or whole bOrdered By: Ric Noriega on 03-13-2025 GFR/1.73 sq M.predicted among non-blacks MDRD (S/P/Bld) [Vol rate/Area] 23 mL/min/{1.73_m2} Low >60 [facility] Hematocrit Auto (Bld) [Volum e fraction]Ordered By: Ric Noriega on 03-13-2025 Hematocrit (Bld) [Volume fraction] 27.8 % Low 37-47 [facility] Hemoglobin measurementOrdere d By: Ric Noriega on 03-13-2025 Hemoglobin (Bld) [Mass/Vol] 8.7 g/dL Low 12.0-15.0 [facility] Immature granulocytes/100 WB C Auto (Bld)Ordered By: Ric Noriega on 03-13-2025 Immature granulocytes/100 WBC (Bld) 0.200 % 0.0-0.9 [facility] Iron measurement (mass/mass) Ordered By: Ric Noriega on 03-13-2025 Iron (Unsp spec) [Mass/Mass] 39 ug/dL Low 50-170 [facility] Iron+Iron Binding Capacityon 03-13-2025 TIBC 453 ug/dL High 250-450 [facility] Comment on above: Performed By: #### L 100.9950, L100.0100, L3100.1350, L503.6550, L503.0106, L503.6030, L500.4050 ####[facility] [address] [place], [address] MCV (mean corpuscular volume ) determinationOrdered By: Ric Noriega on 03-13-2025 MCV (RBC) [Entitic vol] 89.7 fL 81-99 [facility] Mean corpuscular hemoglobin (MCH) determinationOrdered By: Ric Noriega on 03-13-2025 MCH (RBC) [Entitic mass] 28.1 pg 27.0-32.0 [facility] Monocyte percentageOrdered B y: Ric Noriega on 03-13-2025 Monocytes/100 WBC (Bld) 14.7 % High 0-10 [facility] Neutrophil percentageOrdered By: Ric Noriega on 03-13-2025 Neutrophils/100 WBC (Bld) 58.8 % 47-70 [facility] No Panel InformationOrdered By: Ric Noriega on 03-13-2025 2+ [facility] 33 U/L High <32 [facility] 414 ug/dL 228-428 [facility] Oncology Visit Reporton Oncology Visit Report Normal [facility] Platelet countOrdered By: Beryl Noriega on 03-13-2025 Platelets (Bld) [#/Vol] 184 10*3/uL 150-450 [facility] Platelet estimateOrdered By: Ric Noriega on 03-13-2025 Platelets LM Ql (Bld) ADEQUATE ADEQ [facility] Potassium measurement (mass/ volume)Ordered By: Ric Noriega on 03-13-2025 Potassium (Unsp spec) [Mass/Vol] 3.8 mmol/L 3.3-5.1 [facility] RBC Auto (Bld) [#/Vol]Ordere d By: Ric Noriega on 03-13-2025 RBC (Bld) [#/Vol] 3.10 10*6/uL Low 4.2-5.4 [facility] Retic Panelon 03-13-2025 IM RET FRACTION 30.30 High 3.00-15.90 [facility] Comment on above: Performed By: #### L 100.9950, L100.0100, L3100.1350, L503.6550, L503.0106, L503.6030, L500.4050 ####[facility] [address] [place], [place], [id number]) RET-HE 27.7 pg Low 30-35 [facility] Comment on above: Performed By: #### L 100.9950, L100.0100, L3100.1350, L503.6550, L503.0106, L503.6030, L500.4050 ####[facility] [address] [place], [place], [phone]) Retic Count 2.47 High 0.5-1.5 [facility] Comment on above: Performed By: #### L 100.9950, L100.0100, L3100.1350, L503.6550, L503.0106, L503.6030, L500.4050 ####[facility] [address] [place], [place], [id number] Reticulocyte hemoglobin equi valent (RET-He) measurementOrdered By: Ric Noriega on 03-13-2025 Hemoglobin (Reticulocytes) [Entitic mass] 27.7 pg Low 30-35 [facility] Reticulocytes Auto (Bld) [#/ Vol]Ordered By: Ric Noriega on 03-13-2025 Reticulocytes/100 RBC (Bld) 2.47 % High 0.5-1.5 [facility] Serum creatinine measurement (mass/volume)Ordered By: Ric Noriega on 03-13-2025 Creatinine [Mass/Vol] 2.12 mg/dL High 0.70-1.20 [facility] Serum globulin measurementOr dered By: Ric Noriega on 03-13-2025 Globulin (S) [Mass/Vol] 3.3 g/dL 2.2-4.2 [facility] Serum glucose measurement (m ass/volume)Ordered By: Ric Noriega on 03-13-2025 Glucose [Mass/Vol] 139 mg/dL High 70-99 [facility] Serum or plasma alanine craven otransferase (ALT) measurementOrdered By: iRc Noriega on 03-13-2025 ALT [Catalytic activity/Vol] 16 U/L <35 [facility] Serum or plasma albumin bijan urement (mass/volume)Ordered By: Ric Noriega on 03-13-2025 Albumin [Mass/Vol] 4.0 g/dL 3.4-4.8 [facility] Serum or plasma albumin/glob ulin mass ratioOrdered By: Ric Noriega on 03-13-2025 Albumin/Globulin [Mass ratio] 1.2 {ratio} 0.9-2.4 [facility] Serum or plasma alkaline da sphatase measurementOrdered By: Ric Noriega on 03-13-2025 ALP [Catalytic activity/Vol] 136 U/L High 35-104 [facility] Serum or plasma calcium bijan urement (mass/volume)Ordered By: Ric Noriega on 03-13-2025 Calcium [Mass/Vol] 9.2 mg/dL 7.6-11.0 [facility] Serum or plasma erythropoiet in (EPO) measurement (units/volume)Ordered By: Ric Noriega on 03-13-2025 Erythropoietin (EPO) Qn 190.9 mIU/mL High 2.6-18.5 [facility] Serum or plasma ferritin austin surement (mass/volume)Ordered By: Ric Noriega on 03-13-2025 Ferritin [Mass/Vol] 48 ng/mL 22-378 [facility] Serum or plasma iron saturat ion measurement (mass fraction)Ordered By: Ric Noriega on 03-13-2025 Iron saturation [Mass fraction] 8.6 % Low 13-59 [facility] Serum or plasma urea nitroge n measurement (mass/volume)Ordered By: Ric Noriega on 03-13-2025 Urea nitrogen [Mass/Vol] 52 mg/dL High 4-19 [facility] Sodium levelOrdered By: Abi Noriega on 03-13-2025 Sodium [Moles/Vol] 132 mmol/L Low 133-145 [facility] Total proteinOrdered By: Ashwin walter Hari on 03-13-2025 Protein [Mass/Vol] 7.3 g/dL 5.9-8.4 [facility] Vitamin B12on 03-13-2025 Cobalamin (Vitamin B12) [Mass/Vol] 1100 pg/mL High 180-914 [facility] Comment on above: Performed By: #### L 100.9950, L100.0100, L3100.1350, L503.6550, L503.0106, L503.6030, L500.4050 ####[facility] [address] [place], [place], [id number] Vitamin B12 ser/plasOrdered By: Ric Hari on 03-13-2025 Cobalamin (Vitamin B12) [Mass/Vol] 1100 pg/mL High 180-914 [facility] White blood cell (WBC) count Ordered By: Ric Noriega on 03-13-2025 WBC (Bld) [#/Vol] 6.6 10*3/uL 4.4-11.0 [facility] Absolute lymphocyte countOrd ered By: Vincent Flores on 03-09-2025 Lymphocytes Auto (Unsp spec) [#/Vol] 2.06 10*3/uL 0.83-4.51 [facility] Anion gap in Serum or Plasma Ordered By: Vincent Flores on 03-09-2025 Anion gap [Moles/Vol] 13 mmol/L 5-15 [facility] Automated lymphocyte count a s percentage of total leukocytesOrdered By: Vincent Flores on 03-09-2025 Lymphocytes/100 WBC Auto (Unsp spec) 33.8 % 19-41 [facility] BUN/creatinine ratioOrdered By: Vincent Flores on 03-09-2025 Urea nitrogen/Creatinine [Mass ratio] 27.6 mg/mg High 10 [facility] Basic Metabolic Profile (BMP )on 03-09-2025 BUN/CRE 27.6 RATIO High 04-23 [facility] Comment on above: Performed By: #### L 500.2500, L100.0100 ####[facility] [address] [place], [address] Calcium [Mass/Vol] 9.1 mg/dL Normal 7.6-11.0 [facility] Comment on above: Performed By: #### L 500.2500, L100.0100 ####[facility] [address] [place], [address] Chloride [Moles/Vol] 97 mmol/L Low 98-108 [facility] Comment on above: Performed By: #### L 500.2500, L100.0100 ####[facility] [address] [place], [address] CO2 [Moles/Vol] 21.7 mmol/L Normal 21.0-32.0 [facility] Comment on above: Performed By: #### L 500.2500, L100.0100 ####[facility] [address] [place], [address] Creatinine [Mass/Vol] 1.80 mg/dL High 0.70-1.20 [facility] Comment on above: Performed By: #### L 500.2500, L100.0100 ####[facility] [address] [place], [address] GAP 13 Normal 5-15 [facility] Comment on above: Performed By: #### L 500.2500, L100.0100 ####[facility] [address] [place], [address] GFR/1.73 sq M.predicted among non-blacks MDRD (S/P/Bld) [Vol rate/Area] 28 mL/min/{1.73_m2} Low >60 [facility] Comment on above: Result Comment: mL/m in/1.73m2 CKD-EPI Creatinine Equation (2020) Performed By: #### L 500.2500, L100.0100 ####[facility] [address] [place], [address] Glucose [Mass/Vol] 136 mg/dL High 70-99 [facility] Comment on above: Performed By: #### L 500.2500, L100.0100 ####[facility] [address] [place], [address] Potassium [Moles/Vol] 5.0 mmol/L Normal 3.3-5.1 [facility] Comment on above: Performed By: #### L 500.2500, L100.0100 ####[facility] [address] [place], [address] Sodium [Moles/Vol] 131 mmol/L Low 133-145 [facility] Comment on above: Performed By: #### L 500.2500, L100.0100 ####[facility] [address] [place], [address] Urea nitrogen [Mass/Vol] 50 mg/dL High 4-19 [facility] Comment on above: Performed By: #### L 500.2500, L100.0100 ####[facility] [address] [place], [address] Basophil percentageOrdered B y: Vincent Flores on 03-09-2025 Basophils/100 WBC (Bld) 1.0 % 0-1 [facility] Blood manual differential co mment interpretation (narrative result)Ordered By: Vincnet Flores on 03-09-2025 Manual differential comment Cristhian (Bld) [Interp] SCANNED [facility] CBC W/Diff, Automatedon Anisocytosis Ql (Bld) 2+ Normal [facility] Comment on above: Performed By: #### L 500.2500, L100.0100 ####[facility] [address] [place], [address] REACTIVE LYMPH 1+ Normal [facility] Comment on above: Performed By: #### L 500.2500, L100.0100 ####[facility] [address] [place], [place], [address] SMEAR COMMENT SCANNED Normal [facility] Comment on above: Performed By: #### L 500.2500, L100.0100 ####[facility] [address] [facility] [place], [address] Carbon dioxide, total [Moles /volume] in Central venous bloodOrdered By: Vincent Florse on 03-09-2025 CO2 [Moles/Vol] 21.7 mmol/L 21.0-32.0 [facility] Chloride assayOrdered By: Ishmael Flores on 03-09-2025 Chloride [Moles/Vol] 97 mmol/L Low 98-108 [facility] Eosinophil percentageOrdered By: Vincent Flores on 03-09-2025 Eosinophils/100 WBC (Bld) 1.6 % 0-5 [facility] Erythrocyte distribution wid th ratioOrdered By: Vincent Flores 03-09-2025 Erythrocyte distribution width (RBC) [Ratio] 24.9 % High 11.6-14.6 [facility] Erythrocyte distribution wid th standard deviationOrdered By: Vincent Flores 03-09-2025 Erythrocyte distribution width (RBC) [Ratio] 81.9 fl High 35.1-43.9 [facility] Glomerular filtration rate ( GFR) estimation/1.73 sq m using serum, plasma, or whole bOrdered By: Vincent Flores on 03-09-2025 GFR/1.73 sq M.predicted among non-blacks MDRD (S/P/Bld) [Vol rate/Area] 28 mL/min/{1.73_m2} Low >60 [facility] Hematocrit Auto (Bld) [Volum e fraction]Ordered By: Vincent Flores 03-09-2025 Hematocrit (Bld) [Volume fraction] 28.3 % Low 37-47 [facility] Hemoglobin measurementOrdere d By: Vincent Flores 03-09-2025 Hemoglobin (Bld) [Mass/Vol] 8.9 g/dL Low 12.0-15.0 [facility] Immature granulocytes/100 WB C Auto (Bld)Ordered By: Vincent Flores 03-09-2025 Immature granulocytes/100 WBC (Bld) 0.500 % 0.0-0.9 [facility] MCV (mean corpuscular volume ) determinationOrdered By: Vincent Flores on 03-09-2025 MCV (RBC) [Entitic vol] 89.3 fL 81-99 [facility] Mean corpuscular hemoglobin (MCH) determinationOrdered By: Vincent Flores on 03-09-2025 MCH (RBC) [Entitic mass] 28.1 pg 27.0-32.0 [facility] Monocyte percentageOrdered B y: Vincent Flores on 03-09-2025 Monocytes/100 WBC (Bld) 16.2 % High 0-10 [facility] Neutrophil percentageOrdered By: Vincent Flores on 03-09-2025 Neutrophils/100 WBC (Bld) 46.9 % Low 47-70 [facility] No Panel InformationOrdered By: Vincent Flores on 03-09-2025 2+ [facility] Platelet countOrdered By: Ishmael Flores on 03-09-2025 Platelets (Bld) [#/Vol] 191 10*3/uL 150-450 [facility] Potassium measurement (mass/ volume)Ordered By: Vincent Flores on 03-09-2025 Potassium (Unsp spec) [Mass/Vol] 5.0 mmol/L 3.3-5.1 [facility] RBC Auto (Bld) [#/Vol]Ordere d By: Vincent Flores 03-09-2025 RBC (Bld) [#/Vol] 3.17 10*6/uL Low 4.2-5.4 [facility] Serum creatinine measurement (mass/volume)Ordered By: Vincent Flores on 03-09-2025 Creatinine [Mass/Vol] 1.80 mg/dL High 0.70-1.20 [facility] Serum glucose measurement (m ass/volume)Ordered By: Vincent Flores on 03-09-2025 Glucose [Mass/Vol] 136 mg/dL High 70-99 [facility] Serum or plasma calcium bijan urement (mass/volume)Ordered By: Vincent Flores 03-09-2025 Calcium [Mass/Vol] 9.1 mg/dL 7.6-11.0 [facility] Serum or plasma urea nitroge n measurement (mass/volume)Ordered By: Vincent Flores on 03-09-2025 Urea nitrogen [Mass/Vol] 50 mg/dL High - [facility] Sodium levelOrdered By: Vincent Flores on 03-09-2025 Sodium [Moles/Vol] 131 mmol/L Low 133-145 [facility] White blood cell (WBC) count Ordered By: Vincent Flores on 03-09-2025 WBC (Bld) [#/Vol] 6.1 10*3/uL 4.4-11.0 [facility] Anion gap in Serum or Plasma Ordered By: Vincent Flores on 03-02-2025 Anion gap [Moles/Vol] 14 mmol/L - [facility] BUN/creatinine ratioOrdered By: Vincent Flores on 03-02-2025 Urea nitrogen/Creatinine [Mass ratio] 45.3 mg/mg High 04-23 [facility] Basic Metabolic Profile (BMP )on 03-02-2025 BUN/CRE 45.3 RATIO High 04-23 [facility] Comment on above: Performed By: #### L 500.2500 ####[facility] [address] [place], [address] GAP 14 Normal - [facility] Comment on above: Performed By: #### L 500.2500 ####[facility] [address] [place], [address] Potassium [Moles/Vol] 4.2 mmol/L Normal 3.3-5.1 [facility] Comment on above: Performed By: #### L 500.2500 ####[facility] [address] [place], [address] Carbon dioxide, total [Moles /volume] in Central venous bloodOrdered By: Vincent Flores on 03-02-2025 CO2 [Moles/Vol] 25.2 mmol/L Normal 21.0-32.0 [facility] Comment on above: Performed By: #### L 500.2500 ####[facility] [address] [place], [address] Chloride assayOrdered By: Ishmael Petersok on 03-02-2025 Chloride [Moles/Vol] 94 mmol/L Low 98-108 [facility] Comment on above: Performed By: #### L 500.2500 ####[facility] [address] [place], [place], [address] Glomerular filtration rate ( GFR) estimation/1.73 sq m using serum, plasma, or whole bOrdered By: Vincent Flores on 03-02-2025 GFR/1.73 sq M.predicted among non-blacks MDRD (S/P/Bld) [Vol rate/Area] 28 mL/min/{1.73_m2} Low >60 [facility] Comment on above: Result Comment: mL/m in/1.73m2 CKD-EPI Creatinine Equation (2020) Performed By: #### L 500.2500 ####[facility] [address] [place], [place], [address] Potassium measurement (mass/ volume)Ordered By: Vincent Flores on 03-02-2025 Potassium (Unsp spec) [Mass/Vol] 4.2 mmol/L 3.3-5.1 [facility] Serum creatinine measurement (mass/volume)Ordered By: Vincent Flores on 03-02-2025 Creatinine [Mass/Vol] 1.79 mg/dL High 0.70-1.20 [facility] Comment on above: Performed By: #### L 500.2500 ####[facility] [address] [place], [place], [address] Serum glucose measurement (m ass/volume)Ordered By: Vincent Flores on 03-02-2025 Glucose [Mass/Vol] 193 mg/dL High 70-99 [facility] Comment on above: Performed By: #### L 500.2500 ####[facility] [address] [place], [place], [address] Serum or plasma calcium bijan urement (mass/volume)Ordered By: Vincent Flores on 03-02-2025 Calcium [Mass/Vol] 9.4 mg/dL Normal 7.6-11.0 [facility] Comment on above: Performed By: #### L 500.2500 ####[facility] [address] [place], [address] Serum or plasma urea nitroge n measurement (mass/volume)Ordered By: Vincent Flores on 03-02-2025 Urea nitrogen [Mass/Vol] 81 mg/dL High 4-19 [facility] Comment on above: Performed By: #### L 500.2500 ####[facility] [address] [place], [address] Sodium levelOrdered By: Vincent Flores on 03-02-2025 Sodium [Moles/Vol] 133 mmol/L Normal 133-145 [facility] Comment on above: Performed By: #### L 500.2500 ####[facility] [address] [place], [address] Urine Cultureon 03-02-2025 URC Normal [facility] Comment on above: Performed By: #### L 500.4050, L503.7505, L501.9520, L400.0001, L100.0100, M100.2200 ####[facility] [address] [place], [address] Wound Ctr History AND Physic apollo 03-01-2025 Wound Ctr History & Physical Normal [facility] Absolute lymphocyte countOrd ered By: Vincent Flores on 02-27-2025 Lymphocytes Auto (Unsp spec) [#/Vol] 1.36 10*3/uL 0.83-4.51 [facility] Anion gap in Serum or Plasma Ordered By: Vincent Flores on 02-27-2025 Anion gap [Moles/Vol] 18 mmol/L High 5-15 [facility] Automated lymphocyte count a s percentage of total leukocytesOrdered By: Vincent Flores on 02-27-2025 Lymphocytes/100 WBC Auto (Unsp spec) 19.4 % 19-41 [facility] BUN/creatinine ratioOrdered By: Vincent Flores on 02-27-2025 Urea nitrogen/Creatinine [Mass ratio] 56.8 mg/mg High 10-20 [facility] Basophil percentageOrdered B y: Vincent Flores on 02-27-2025 Basophils/100 WBC (Bld) 0.7 % 0-1 [facility] Bilirubin Test strip Ql (U)O rdered By: Vincent Flores on 02-27-2025 Bilirubin Ql (U) Negative Negative [facility] Bilirubin, totalOrdered By: Vincent Flores on 02-27-2025 Bilirubin [Mass/Vol] 1.42 mg/dL High 0.00-1.30 [facility] Comment on above: Performed By: #### L 500.4050, L503.7505, L501.9520, L400.0001, L100.0100, M100.2200 ####[facility] [address] [place], [place], [address] Blood manual differential co mment interpretation (narrative result)Ordered By: Vincent Flores on 02-27-2025 Manual differential comment Cristhian (Bld) [Interp] SCANNED [facility] Blood polychromasia detectio n by light microscopyOrdered By: Vincent Flores on 02-27-2025 Polychromasia LM Ql (Bld) RARE [facility] CBC W/Diff, Automatedon 02-03 Anisocytosis Ql (Bld) 2+ Normal [facility] Comment on above: Performed By: #### L 500.4050, L503.7505, L501.9520, L400.0001, L100.0100, M100.2200 ####[facility] [address] [place], [place], [address] POLYCHROMASIA RARE Normal [facility] Comment on above: Performed By: #### L 500.4050, L503.7505, L501.9520, L400.0001, L100.0100, M100.2200 ####[facility] [address] [place], [place], [address] SMEAR COMMENT SCANNED Normal [facility] Comment on above: Performed By: #### L 500.4050, L503.7505, L501.9520, L400.0001, L100.0100, M100.2200 ####[facility] [address] [place], [address] Carbon dioxide, total [Moles /volume] in Central venous bloodOrdered By: Vincent Flores on 02-27-2025 CO2 [Moles/Vol] 25.4 mmol/L Normal 21.0-32.0 [facility] Comment on above: Performed By: #### L 500.4050, L503.7505, L501.9520, L400.0001, L100.0100, M100.2200 ####[facility] [address] [place], [address] Chloride assayOrdered By: Ishmael Flores on 02-27-2025 Chloride [Moles/Vol] 90 mmol/L Low 98-108 [facility] Comment on above: Performed By: #### L 500.4050, L503.7505, L501.9520, L400.0001, L100.0100, M100.2200 ####[facility] [address] [place], [address] Comprehensive Metabolic Prof ilon 02-27-2025 ALK PHOS 123 U/L High 35-104 [facility] Comment on above: Performed By: #### L 500.4050, L503.7505, L501.9520, L400.0001, L100.0100, M100.2200 ####[facility] [address] [place], [address] AST [Catalytic activity/Vol] 50 U/L High <=31 [facility] Comment on above: Performed By: #### L 500.4050, L503.7505, L501.9520, L400.0001, L100.0100, M100.2200 ####[facility] [address] [place], [address] BUN/CRE 56.8 RATIO High 10-20 [facility] Comment on above: Performed By: #### L 500.4050, L503.7505, L501.9520, L400.0001, L100.0100, M100.2200 ####[facility] [address] [place], [address] GAP 18 High 5-15 [facility] Comment on above: Performed By: #### L 500.4050, L503.7505, L501.9520, L400.0001, L100.0100, M100.2200 ####[facility] [address] [place], [address] Potassium [Moles/Vol] 3.6 mmol/L Normal 3.3-5.1 [facility] Comment on above: Performed By: #### L 500.4050, L503.7505, L501.9520, L400.0001, L100.0100, M100.2200 ####[facility] [address] [place], [address] T PROT 7.5 g/dL Normal 5.9-8.4 [facility] Comment on above: Performed By: #### L 500.4050, L503.7505, L501.9520, L400.0001, L100.0100, M100.2200 ####[facility] [address] [place], [address] Eosinophil percentageOrdered By: Vincent Mark on 02-27-2025 Eosinophils/100 WBC (Bld) 1.0 % 0-5 [facility] Erythrocyte distribution wid th ratioOrdered By: Vincent Flores on 02-27-2025 Erythrocyte distribution width (RBC) [Ratio] 24.3 % High 11.6-14.6 [facility] Erythrocyte distribution wid th standard deviationOrdered By: [facility] on 02-27-2025 Erythrocyte distribution width (RBC) [Ratio] 76.4 fl High 35.1-43.9 [facility] Glomerular filtration rate ( GFR) estimation/1.73 sq m using serum, plasma, or whole bOrdered By: Vincent Flores on 02-27-2025 GFR/1.73 sq M.predicted among non-blacks MDRD (S/P/Bld) [Vol rate/Area] 27 mL/min/{1.73_m2} Low >60 [facility] Comment on above: Result Comment: mL/m in/1.73m2 CKD-EPI Creatinine Equation (2020) Performed By: #### L 500.4050, L503.7505, L501.9520, L400.0001, L100.0100, M100.2200 ####[facility] [address] [place], [place], [address] Hematocrit Auto (Bld) [Volum e fraction]Ordered By: Vincent Flores on 02-27-2025 Hematocrit (Bld) [Volume fraction] 26.0 % Low 37-47 [facility] Hemoglobin measurementOrdere d By: Vincent Flores on 02-27-2025 Hemoglobin (Bld) [Mass/Vol] 8.4 g/dL Low 12.0-15.0 [facility] Immature granulocytes/100 WB C Auto (Bld)Ordered By: Vincent Flores 02-27-2025 Immature granulocytes/100 WBC (Bld) 0.300 % 0.0-0.9 [facility] Ketones Test strip Ql (U)Ord ered By: Vincent Flores 02-27-2025 Ketones Ql (U) Negative Negative [facility] MCV (mean corpuscular volume ) determinationOrdered By: Vincent Flores 02-27-2025 MCV (RBC) [Entitic vol] 87.5 fL 81-99 [facility] Mean corpuscular hemoglobin (MCH) determinationOrdered By: Vincent Flores 02-27-2025 MCH (RBC) [Entitic mass] 28.3 pg 27.0-32.0 [facility] Monocyte percentageOrdered B y: Vincent Flores on 02-27-2025 Monocytes/100 WBC (Bld) 11.7 % High 0-10 [facility] Mucus LM Ql (Urine sed)Order ed By: Vincent Flores on 02-27-2025 Mucus Ql (Urine sed) 0 SEEN /hpf [facility] Natriuretic peptide.B prohor daria N-Terminal [Mass/volume] in Serum or PlasmaOrdered By: Vincent Flores on 02-27-2025 Natriuretic peptide.B prohormone N-Terminal [Mass/Vol] 9003 pg/mL High <1800 [facility] Neutrophil percentageOrdered By: Vincent Flores on 02-27-2025 Neutrophils/100 WBC (Bld) 66.9 % 47-70 [facility] Nitrite Test strip Ql (U)Ord ered By: Vincent Flores on 02-27-2025 Nitrite Ql (U) Negative Negative [facility] No Panel InformationOrdered By: Vincent Flores on 02-27-2025 2+ [facility] 50 U/L High <32 [facility] Platelet countOrdered By: Ishmael Flores on 02-27-2025 Platelets (Bld) [#/Vol] 181 10*3/uL 150-450 [facility] Potassium measurement (mass/ volume)Ordered By: Vincent Flores on 02-27-2025 Potassium (Unsp spec) [Mass/Vol] 3.6 mmol/L 3.3-5.1 [facility] Pro- Brain NATRIURETIC PEPTI Drew 02-27-2025 Natriuretic peptide B (Bld) [Mass/Vol] 9003 pg/mL High <=1800 [facility] Comment on above: Result Comment: Hear t Failure Unlikely: < 300 pg/mLHeart Failure Likely< 50 Years: > 450 pg/mL50-75 Years: > 900 pg/mL>75 Years: > 1800 pg/mL Performed By: #### L 500.4050, L503.7505, L501.9520, L400.0001, L100.0100, M100.2200 ####[facility] [address] [place], [address] Protein Test strip Ql (U)Ord ered By: Vincent Flores on 02-27-2025 Protein Ql (U) 30 mg/dl High Negative [facility] RBC Auto (Bld) [#/Vol]Ordere d By: Vincent Flores on 02-27-2025 RBC (Bld) [#/Vol] 2.97 10*6/uL Low 4.2-5.4 [facility] Serum creatinine measurement (mass/volume)Ordered By: Vincent Flores on 02-27-2025 Creatinine [Mass/Vol] 1.90 mg/dL High 0.70-1.20 [facility] Comment on above: Performed By: #### L 500.4050, L503.7505, L501.9520, L400.0001, L100.0100, M100.2200 ####[facility] [address] [place], [address] Serum globulin measurementOr dered By: Vincent Flores on 02-27-2025 Globulin (S) [Mass/Vol] 3.4 g/dL Normal 2.2-4.2 [facility] Comment on above: Performed By: #### L 500.4050, L503.7505, L501.9520, L400.0001, L100.0100, M100.2200 ####[facility] [address] [place], [address] Serum glucose measurement (m ass/volume)Ordered By: Vincent Flores on 02-27-2025 Glucose [Mass/Vol] 290 mg/dL High 70-99 [facility] Comment on above: Performed By: #### L 500.4050, L503.7505, L501.9520, L400.0001, L100.0100, M100.2200 ####[facility] [address] [place], [address] Serum or plasma alanine craven otransferase (ALT) measurementOrdered By: Vincent Flores on 02-27-2025 ALT [Catalytic activity/Vol] 33 U/L Normal <=34 [facility] Comment on above: Performed By: #### L 500.4050, L503.7505, L501.9520, L400.0001, L100.0100, M100.2200 ####[facility] [address] [place], [address] Serum or plasma albumin bijan urement (mass/volume)Ordered By: Vincent Flores on 02-27-2025 Albumin [Mass/Vol] 4.1 g/dL Normal 3.4-4.8 [facility] Comment on above: Performed By: #### L 500.4050, L503.7505, L501.9520, L400.0001, L100.0100, M100.2200 ####[facility] [address] [place], [address] Serum or plasma albumin/glob ulin mass ratioOrdered By: Vincent Flores on 02-27-2025 Albumin/Globulin [Mass ratio] 1.2 {ratio} Normal 0.9-2.4 [facility] Comment on above: Performed By: #### L 500.4050, L503.7505, L501.9520, L400.0001, L100.0100, M100.2200 ####[facility] [address] [place], [address] Serum or plasma alkaline da sphatase measurementOrdered By: Vincent Flores on 02-27-2025 ALP [Catalytic activity/Vol] 123 U/L High 35-104 [facility] Serum or plasma calcium bijan urement (mass/volume)Ordered By: Vincent Flores on 02-27-2025 Calcium [Mass/Vol] 9.9 mg/dL Normal 7.6-11.0 [facility] Comment on above: Performed By: #### L 500.4050, L503.7505, L501.9520, L400.0001, L100.0100, M100.2200 ####[facility] [address] [place], [address] Serum or plasma urea nitroge n measurement (mass/volume)Ordered By: Vincent Flores on 02-27-2025 Urea nitrogen [Mass/Vol] 108 mg/dL Invalid Interpretation Code 10-21 [facility] Comment on above: Result Comment: Crit ical Result(s) Called at: by: DR. FLORES??Results readback by same. Performed By: #### L 500.4050, L503.7505, L501.9520, L400.0001, L100.0100, M100.2200 ####[facility] [address] [place], [place], [address] Sodium levelOrdered By: Vincent Flores on 02-27-2025 Sodium [Moles/Vol] 134 mmol/L Normal 133-145 [facility] Comment on above: Performed By: #### L 500.4050, L503.7505, L501.9520, L400.0001, L100.0100, M100.2200 ####[facility] [address] [place], [address] Squamous epithelial cells de tection in urine sediment by light microscopyOrdered By: Vincent Flores on 02-27-2025 Epithelial cells.squamous LM Ql (Urine sed) 0 SEEN /hpf 5-10 [facility] TSH DL <= 0.005 mIU/L QnOrde red By: Vincent Flores on 02-27-2025 TSH Qn 3.010 uIU/mL 0.300-4.200 [facility] Thyroid Stim Hormone (TSH)on 02-27-2025 TSH 3.010 uIU/mL Normal 0.300-4.200 [facility] Comment on above: Performed By: #### L 500.4050, L503.7505, L501.9520, L400.0001, L100.0100, M100.2200 ####[facility] [address] [place], [place], [address] Total proteinOrdered By: Vincent Flores on 02-27-2025 Protein [Mass/Vol] 7.5 g/dL 5.9-8.4 [facility] Urinalysis, Completeon 02-27 EPI,RENAL 0-5 SEEN Normal 0-5 [facility] Comment on above: Order Comment: Urine , Random Performed By: #### L 500.4050, L503.7505, L501.9520, L400.0001, L100.0100, M100.2200 ####[facility] [address] [place], [address] BACTERIA 0 SEEN Normal None Seen [facility] Comment on above: Order Comment: Urine , Random Performed By: #### L 500.4050, L503.7505, L501.9520, L400.0001, L100.0100, M100.2200 ####[facility] [address] [place], [address] EPI,SQUAMOUS 0 SEEN Normal 5-10 [facility] Comment on above: Order Comment: Urine , Random Performed By: #### L 500.4050, L503.7505, L501.9520, L400.0001, L100.0100, M100.2200 ####[facility] [address] [place], [address] Mucus Ql (Urine sed) 0 SEEN Normal [facility] Comment on above: Order Comment: Urine , Random Performed By: #### L 500.4050, L503.7505, L501.9520, L400.0001, L100.0100, M100.2200 ####[facility] [address] [place], [address] RBC 0 SEEN Normal 0-5 [facility] Comment on above: Order Comment: Urine , Random Performed By: #### L 500.4050, L503.7505, L501.9520, L400.0001, L100.0100, M100.2200 ####[facility] [address] [place], [address] WBC 0 SEEN Normal 0-5 [facility] Comment on above: Order Comment: Urine , Random Performed By: #### L 500.4050, L503.7505, L501.9520, L400.0001, L100.0100, M100.2200 ####[facility] [address] [place], [address] Urine clarityOrdered By: Vincent Flores on 02-27-2025 Clarity (U) Sl. Cloudy Clear [facility] Urine color determinationOrd ered By: iVncent Flores on 02-27-2025 Color (U) Yellow Yellow [facility] Urine cultureOrdered By: Vincent Flores on 02-27-2025 Bacteria identified Cx Nom (U) ESBL Escherichia coli Abnormal [facility] Bacteria identified Cx Nom (U) ESBL Escherichia coli Abnormal [facility] Urine glucose detectionOrder ed By: Vincent Flores on 02-27-2025 Glucose Ql (U) Normal mg/dl Normal [facility] Urine leukocyte esterase det ection by dipstickOrdered By: Vincent Flores on 02-27-2025 Leukocyte esterase Test strip Ql (U) Negative Negative [facility] Urine pHOrdered By: Vincent Flores on 02-27-2025 pH (U) 6.5 [pH] 5.0 - 8.0 [facility] [facility] Urine sediment bacteria coun t by microscopy (number/high power field)Ordered By: Vincent Flores on 02-27-2025 Bacteria LM.HPF (Urine sed) [#/Area] 0 /[HPF] None Seen [facility] Urine sediment renal epithel ial cell count by microscopy (number/high power field)Ordered By: Vincent Floers on 02-27-2025 Epithelial cells.renal LM.HPF (Urine sed) [#/Area] 0 /[HPF] 0-5 [facility] Urine specific gravity measu rementOrdered By: Vincent Flores on 02-27-2025 Specific gravity (U) [Rel density] 1.010 1.002-1.030 [facility] Urine urobilinogen measureme ntOrdered By: Vincent Flores on 02-27-2025 Urobilinogen Ql (U) Normal mg/dl Normal [facility] White blood cell (WBC) count Ordered By: Vincent Flores on 02-27-2025 WBC (Bld) [#/Vol] 7.0 10*3/uL 4.4-11.0 [facility] White blood cell countOrdere d By: Vincent Flores on 02-27-2025 White blood cell count 0 SEEN /hpf 0-5 [facility] Absolute lymphocyte countOrd ered By: Vincent Flores on 02-21-2025 Lymphocytes Auto (Unsp spec) [#/Vol] 1.96 10*3/uL 0.83-4.51 [facility] Anion gap in Serum or Plasma Ordered By: Vincent Flores on 02-21-2025 Anion gap [Moles/Vol] 18 mmol/L High 5-15 [facility] Automated lymphocyte count a s percentage of total leukocytesOrdered By: Vincent Flores on 02-21-2025 Lymphocytes/100 WBC Auto (Unsp spec) 27.8 % 19-41 [facility] BUN/creatinine ratioOrdered By: Vincent Flores on 02-21-2025 Urea nitrogen/Creatinine [Mass ratio] 44.3 mg/mg High 04-23 [facility] Basic Metabolic Profile (BMP )on 02-21-2025 BUN/CRE 44.3 RATIO High 04-23 [facility] Comment on above: Performed By: #### L 500.2500, L503.7505, L100.0100 ####[facility] [address] [place], [address] Calcium [Mass/Vol] 9.6 mg/dL Normal 7.6-11.0 [facility] Comment on above: Performed By: #### L 500.2500, L503.7505, L100.0100 ####[facility] [address] [place], [address] Chloride [Moles/Vol] 89 mmol/L Low 98-108 [facility] Comment on above: Performed By: #### L 500.2500, L503.7505, L100.0100 ####[facility] [address] [place], [address] CO2 [Moles/Vol] 26.5 mmol/L Normal 21.0-32.0 [facility] Comment on above: Performed By: #### L 500.2500, L503.7505, L100.0100 ####[facility] [address] [place], [address] Creatinine [Mass/Vol] 1.98 mg/dL High 0.70-1.20 [facility] Comment on above: Performed By: #### L 500.2500, L503.7505, L100.0100 ####[facility] [address] [place], [address] GAP 18 High 5-15 [facility] Comment on above: Performed By: #### L 500.2500, L503.7505, L100.0100 ####[facility] [address] [place], [address] GFR/1.73 sq M.predicted among non-blacks MDRD (S/P/Bld) [Vol rate/Area] 25 mL/min/{1.73_m2} Low >60 [facility] Comment on above: Result Comment: mL/m in/1.73m2 CKD-EPI Creatinine Equation (2020) Performed By: #### L 500.2500, L503.7505, L100.0100 ####[facility] [address] [place], [address] Glucose [Mass/Vol] 118 mg/dL High 70-99 [facility] Comment on above: Performed By: #### L 500.2500, L503.7505, L100.0100 ####[facility] [address] [place], [address] Potassium [Moles/Vol] 3.2 mmol/L Low 3.3-5.1 [facility] Comment on above: Performed By: #### L 500.2500, L503.7505, L100.0100 ####[facility] [address] [place], [address] Sodium [Moles/Vol] 133 mmol/L Normal 133-145 [facility] Comment on above: Performed By: #### L 500.2500, L503.7505, L100.0100 ####[facility] [address] [place], [address] Urea nitrogen [Mass/Vol] 88 mg/dL High 4-19 [facility] Comment on above: Performed By: #### L 500.2500, L503.7505, L100.0100 ####[facility] [address] [place], [address] Basophil percentageOrdered B y: Vincent Flores on 02-21-2025 Basophils/100 WBC (Bld) 0.8 % 0-1 [facility] Blood manual differential co mment interpretation (narrative result)Ordered By: Vincent Flores on 02-21-2025 Manual differential comment Cristhian (Bld) [Interp] SCANNED [facility] Blood polychromasia detectio n by light microscopyOrdered By: Vincent Flores on 02-21-2025 Polychromasia LM Ql (Bld) 1+ [facility] CBC W/Diff, Automatedon 02-03 HYPOCHROMASIA 1+ Normal [facility] Comment on above: Performed By: #### L 500.2500, L503.7505, L100.0100 ####[facility] [address] [place], [address] Anisocytosis Ql (Bld) 2+ Normal [facility] Comment on above: Performed By: #### L 500.2500, L503.7505, L100.0100 ####[facility] [address] [place], [address] PLT EST ADEQUATE Normal ADEQ [facility] Comment on above: Performed By: #### L 500.2500, L503.7505, L100.0100 ####[facility] [address] [place], [address] POLYCHROMASIA 1+ Normal [facility] Comment on above: Performed By: #### L 500.2500, L503.7505, L100.0100 ####[facility] [address] [place], [address] SMEAR COMMENT SCANNED Normal [facility] Comment on above: Performed By: #### L 500.3044, L503.7508, L100.0100 ####[facility] [address] [place], [address] Carbon dioxide, total [Moles /volume] in Central venous bloodOrdered By: Vincent Flores on 02-21-2025 CO2 [Moles/Vol] 26.5 mmol/L 21.0-32.0 [facility] Chloride assayOrdered By: Ishmael Flores on 02-21-2025 Chloride [Moles/Vol] 89 mmol/L Low 98-108 [facility] Eosinophil percentageOrdered By: iVncent Flores 02-21-2025 Eosinophils/100 WBC (Bld) 1.4 % 0-5 [facility] Erythrocyte distribution wid th ratioOrdered By: Vincent Flores on 02-21-2025 Erythrocyte distribution width (RBC) [Ratio] 23.6 % High 11.6-14.6 [facility] Erythrocyte distribution wid th standard deviationOrdered By: Vincent Flores on 02-21-2025 Erythrocyte distribution width (RBC) [Ratio] 73.1 fl High 35.1-43.9 [facility] Glomerular filtration rate ( GFR) estimation/1.73 sq m using serum, plasma, or whole bOrdered By: Vincent Flores on 02-21-2025 GFR/1.73 sq M.predicted among non-blacks MDRD (S/P/Bld) [Vol rate/Area] 25 mL/min/{1.73_m2} Low >60 [facility] Hematocrit Auto (Bld) [Volum e fraction]Ordered By: Vincent Flores on 02-21-2025 Hematocrit (Bld) [Volume fraction] 31.5 % Low 37-47 [facility] Hemoglobin measurementOrdere d By: Vincent Flores 02-21-2025 Hemoglobin (Bld) [Mass/Vol] 10.1 g/dL Low 12.0-15.0 [facility] Hypochromatic red blood cell detectionOrdered By: Vincent Flores on 02-21-2025 Hypochromia Ql (Bld) 1+ [facility] Immature granulocytes/100 WB C Auto (Bld)Ordered By: Vincent Flores on 02-21-2025 Immature granulocytes/100 WBC (Bld) 0.300 % 0.0-0.9 [facility] MCV (mean corpuscular volume ) determinationOrdered By: Vincent Flores on 02-21-2025 MCV (RBC) [Entitic vol] 86.3 fL 81-99 [facility] Mean corpuscular hemoglobin (MCH) determinationOrdered By: Vincent Flores on 02-21-2025 MCH (RBC) [Entitic mass] 27.7 pg 27.0-32.0 [facility] Monocyte percentageOrdered B y: Vincent Flores on 02-21-2025 Monocytes/100 WBC (Bld) 14.3 % High 0-10 [facility] Natriuretic peptide.B prohor daria N-Terminal [Mass/volume] in Serum or PlasmaOrdered By: Vincent Flores on 02-21-2025 Natriuretic peptide.B prohormone N-Terminal [Mass/Vol] 18161 pg/mL High <1800 [facility] Neutrophil percentageOrdered By: Vincent Flores on 02-21-2025 Neutrophils/100 WBC (Bld) 55.4 % 47-70 [facility] No Panel InformationOrdered By: Vincent Flores on 02-21-2025 2+ [facility] Platelet countOrdered By: Ishmael Flores on 02-21-2025 Platelets (Bld) [#/Vol] 170 10*3/uL 150-450 [facility] Platelet estimateOrdered By: Vincent Flores on 02-21-2025 Platelets LM Ql (Bld) ADEQUATE ADEQ [facility] Potassium measurement (mass/ volume)Ordered By: Vincent Flores on 02-21-2025 Potassium (Unsp spec) [Mass/Vol] 3.2 mmol/L Low 3.3-5.1 [facility] Pro- Brain NATRIURETIC PEPTI Drew 02-21-2025 Natriuretic peptide B (Bld) [Mass/Vol] 20464 pg/mL High <=1800 [facility] Comment on above: Result Comment: Hear t Failure Unlikely: < 300 pg/mLHeart Failure Likely< 50 Years: > 450 pg/mL50-75 Years: > 900 pg/mL>75 Years: > 1800 pg/mL Performed By: #### L 500.2500, L503.7505, L100.0100 ####[facility] [address] [place], [address] RBC Auto (Bld) [#/Vol]Ordere d By: Vincent Flores on 02-21-2025 RBC (Bld) [#/Vol] 3.65 10*6/uL Low 4.2-5.4 [facility] Serum creatinine measurement (mass/volume)Ordered By: Vincent Flores on 02-21-2025 Creatinine [Mass/Vol] 1.98 mg/dL High 0.70-1.20 [facility] Serum glucose measurement (m ass/volume)Ordered By: Vincent Flores on 02-21-2025 Glucose [Mass/Vol] 118 mg/dL High 70-99 [facility] Serum or plasma calcium bijan urement (mass/volume)Ordered By: Vincent Flores on 02-21-2025 Calcium [Mass/Vol] 9.6 mg/dL 7.6-11.0 [facility] Serum or plasma urea nitroge n measurement (mass/volume)Ordered By: Vincent Flores on 02-21-2025 Urea nitrogen [Mass/Vol] 88 mg/dL High 4-19 [facility] Sodium levelOrdered By: Vincent Flores on 02-21-2025 Sodium [Moles/Vol] 133 mmol/L 133-145 [facility] White blood cell (WBC) count Ordered By: Vincent Flores on 02-21-2025 WBC (Bld) [#/Vol] 7.1 10*3/uL 4.4-11.0 [facility] 12 Lead EKGon 02-16-2025 12 Lead EKG Normal [facility] Absolute lymphocyte countOrd ered By: Magdy Pang on 02-16-2025 Lymphocytes Auto (Unsp spec) [#/Vol] 1.41 10*3/uL 0.83-4.51 [facility] Absolute neutrophil countOrd ered By: Magdy Pang on 02-16-2025 Neutrophils (Bld) [#/Vol] 3.7 10*3/uL 2.0-7.7 [facility] Anion gap in Serum or Plasma Ordered By: Magdy Pang on 02-16-2025 Anion gap [Moles/Vol] 15 mmol/L - [facility] Automated lymphocyte count a s percentage of total leukocytesOrdered By: Magdy Pang on 02-16-2025 Lymphocytes/100 WBC Auto (Unsp spec) 23.2 % [facility] BUN/creatinine ratioOrdered By: Magdy Pang on 02-16-2025 Urea nitrogen/Creatinine [Mass ratio] 33.4 mg/mg High 04-23 [facility] Basic Metabolic Profile (BMP )on 02-16-2025 BUN/CRE 33.4 RATIO High 04-23 [facility] Comment on above: Performed By: #### L 500.2500, L503.7505, L100.0100, L501.4021 ####[facility] [address] [place], [address] Calcium [Mass/Vol] 9.5 mg/dL Normal 7.6-11.0 [facility] Comment on above: Performed By: #### L 500.2500, L503.7505, L100.0100, L501.4021 ####[facility] [address] [place], [address] Chloride [Moles/Vol] 92 mmol/L Low 98-108 [facility] Comment on above: Performed By: #### L 500.2500, L503.7505, L100.0100, L501.4021 ####[facility] [address] [place], [address] CO2 [Moles/Vol] 23.9 mmol/L Normal 21.0-32.0 [facility] Comment on above: Performed By: #### L 500.2500, L503.7505, L100.0100, L501.4021 ####[facility] [address] [place], [address] Creatinine [Mass/Vol] 2.04 mg/dL High 0.70-1.20 [facility] Comment on above: Performed By: #### L 500.2500, L503.7505, L100.0100, L501.4021 ####[facility] [address] [place], [address] ECRCL 20.45 ml/min Low 50-250 [facility] Comment on above: Performed By: #### L 500.2500, L503.7505, L100.0100, L501.4021 ####[facility] [address] [place], [address] GAP 15 Normal 5-15 [facility] Comment on above: Performed By: #### L 500.2500, L503.7505, L100.0100, L501.4021 ####[facility] [address] [place], [address] GFR/1.73 sq M.predicted among non-blacks MDRD (S/P/Bld) [Vol rate/Area] 24 mL/min/{1.73_m2} Low >60 [facility] Comment on above: Result Comment: mL/m in/1.73m2 CKD-EPI Creatinine Equation (2020) Performed By: #### L 500.2500, L503.7505, L100.0100, L501.4021 ####[facility] [address] [place], [address] Glucose [Mass/Vol] 129 mg/dL High 70-99 [facility] Comment on above: Performed By: #### L 500.2500, L503.7505, L100.0100, L501.4021 ####[facility] [address] [place], [address] Potassium [Moles/Vol] 3.9 mmol/L Normal 3.3-5.1 [facility] Comment on above: Performed By: #### L 500.2500, L503.7505, L100.0100, L501.4021 ####[facility] [address] [place], [address] Sodium [Moles/Vol] 131 mmol/L Low 133-145 [facility] Comment on above: Performed By: #### L 500.2500, L503.7505, L100.0100, L501.4021 ####[facility] [address] [place], [address] Urea nitrogen [Mass/Vol] 68 mg/dL High 4-19 [facility] Comment on above: Performed By: #### L 500.2500, L503.7505, L100.0100, L501.4021 ####[facility] [address] [place], [address] Basophil percentageOrdered B y: Magdy Pang on 02-16-2025 Basophils/100 WBC (Bld) 1.0 % 0-1 [facility] Blood manual differential co mment interpretation (narrative result)Ordered By: Magdy Pang on 02-16-2025 Manual differential comment Cristhian (Bld) [Interp] SCANNED [facility] Blood polychromasia detectio n by light microscopyOrdered By: Magdy Pang on 02-16-2025 Polychromasia LM Ql (Bld) 1+ [facility] CBC W/Diff, Automatedon 02-02 HYPOCHROMASIA 1+ Normal [facility] Comment on above: Performed By: #### L 500.2500, L503.7505, L100.0100, L501.4021 ####[facility] [address] [place], [address] POLYCHROMASIA 1+ Normal [facility] Comment on above: Performed By: #### L 500.2500, L503.7505, L100.0100, L501.4021 ####[facility] [address] [place], [address] Anisocytosis Ql (Bld) 2+ Normal [facility] Comment on above: Performed By: #### L 500.2500, L503.7505, L100.0100, L501.4021 ####[facility] [address] [place], [address] PLT EST SLT DEC Normal ADEQ [facility] Comment on above: Performed By: #### L 500.2500, L503.7505, L100.0100, L501.4021 ####[facility] [address] [place], [address] SMEAR COMMENT SCANNED Normal [facility] Comment on above: Performed By: #### L 500.2500, L503.7505, L100.0100, L501.4021 ####[facility] [address] [place], [address] Carbon dioxide, total [Moles /volume] in Central venous bloodOrdered By: Mgady Pang on 02-16-2025 CO2 [Moles/Vol] 23.9 mmol/L 21.0-32.0 [facility] Chest PA and Lateralon 02-16 Chest PA and Lateral Normal [facility] Chloride assayOrdered By: Rancho Pang on 02-16-2025 Chloride [Moles/Vol] 92 mmol/L Low 98-108 [facility] Emergency Department Summary on 02-16-2025 Emergency Department Summary Normal [facility] Eosinophil percentageOrdered By: Magdy Pang on 02-16-2025 Eosinophils/100 WBC (Bld) 1.2 % 0-5 [facility] Erythrocyte distribution wid th ratioOrdered By: Magdy Pang on 02-16-2025 Erythrocyte distribution width (RBC) [Ratio] 24.4 % High 11.6-14.6 [facility] Erythrocyte distribution wid th standard deviationOrdered By: Magdy Pang on 02-16-2025 Erythrocyte distribution width (RBC) [Ratio] 76.4 fl High 35.1-43.9 [facility] Glomerular filtration rate ( GFR) estimation/1.73 sq m using serum, plasma, or whole bOrdered By: Magdy Pang on 02-16-2025 GFR/1.73 sq M.predicted among non-blacks MDRD (S/P/Bld) [Vol rate/Area] 24 mL/min/{1.73_m2} Low >60 [facility] Comment on above: mL/min/1.73m2 CKD-EP I Creatinine Equation (2020) Hematocrit Auto (Bld) [Volum e fraction]Ordered By: Magdy Pang on 02-16-2025 Hematocrit (Bld) [Volume fraction] 32.2 % Low 37-47 [facility] Hemoglobin measurementOrdere d By: Magdy Pang on 02-16-2025 Hemoglobin (Bld) [Mass/Vol] 10.3 g/dL Low 12.0-15.0 [facility] Hypochromatic red blood cell detectionOrdered By: Magdy Pang on 02-16-2025 Hypochromia Ql (Bld) 1+ [facility] Immature granulocytes/100 WB C Auto (Bld)Ordered By: Magdy Pang on 02-16-2025 Immature granulocytes/100 WBC (Bld) 0.300 % 0.0-0.9 [facility] Comment on above: IG% - Immature Granu locytes (promyelocytes, myelocytes and metamyelocytes) > 1% indicates that a LEFT SHIFT is Present. L501.4021on 02-16-2025 Trop T High Sen 94 ng/L Invalid Interpretation Code <=14 [facility] Comment on above: Result Comment: Crit ical Result(s) Called at 1447: by: JOSH MARI. ??Results read back by same. Performed By: #### L 500.2500, L503.7505, L100.0100, L501.4021 ####[facility] [address] [place], [place], [address] Laboratory - Hematology and Cell countsOrdered By: Magdy Pang on 02-16-2025 Anisocytosis Ql (Bld) 2+ [facility] MCV (mean corpuscular volume ) determinationOrdered By: Magdy Pang on 02-16-2025 MCV (RBC) [Entitic vol] 87.0 fL 81-99 [facility] Mean corpuscular hemoglobin (MCH) determinationOrdered By: Magdy Pang on 02-16-2025 MCH (RBC) [Entitic mass] 27.8 pg 27.0-32.0 [facility] Mean corpuscular hemoglobin concentration (MCHC) determinationOrdered By: Magdy Pang on 02-16-2025 MCHC (RBC) [Mass/Vol] 32.0 g/dL 32-36 [facility] Mean platelet volume determi nationOrdered By: Magdy Pang on 02-16-2025 Platelet mean volume (Bld) [Entitic vol] 9.5 fL 6.2-12.0 [facility] Monocyte percentageOrdered B y: Magdy Pang on 02-16-2025 Monocytes/100 WBC (Bld) 13.7 % High 0-10 [facility] Natriuretic peptide.B prohor daria N-Terminal [Mass/volume] in Serum or PlasmaOrdered By: Magdy Pnag on 02-16-2025 Natriuretic peptide.B prohormone N-Terminal [Mass/Vol] 30289 pg/mL High <1800 [facility] Comment on above: Heart Failure Unlike ly: < 300 pg/mLHeart Failure Likely< 50 Years: > 450 pg/mL50-75 Years: > 900 pg/mL>75 Years: > 1800 pg/mL Neutrophil percentageOrdered By: Magdy Pang on 02-16-2025 Neutrophils/100 WBC (Bld) 60.6 % 47-70 [facility] No Panel InformationOrdered By: Magdy Pang on 02-16-2025 2+ [facility] Nucleated red blood cell per centageOrdered By: Magdy Pang on 02-16-2025 Nucleated RBC/100 WBC (Bld) [Ratio] 0 % 0-5 [facility] Platelet countOrdered By: Rancho Pang on 02-16-2025 Platelets (Bld) [#/Vol] 139 10*3/uL Low 150-450 [facility] Platelet estimateOrdered By: Magdy Pang on 02-16-2025 Platelets LM Ql (Bld) SLT DEC ADEQ [facility] Potassium measurement (mass/ volume)Ordered By: Magdy Pang on 02-16-2025 Potassium (Unsp spec) [Mass/Vol] 3.9 mmol/L 3.3-5.1 [facility] Pro- Brain NATRIURETIC PEPTI Drew 02-16-2025 Natriuretic peptide B (Bld) [Mass/Vol] 74568 pg/mL High <=1800 [facility] Comment on above: Result Comment: Hear t Failure Unlikely: < 300 pg/mLHeart Failure Likely< 50 Years: > 450 pg/mL50-75 Years: > 900 pg/mL>75 Years: > 1800 pg/mL Performed By: #### L 500.2500, L503.7505, L100.0100, L501.4021 ####[facility] [address] [place], [address] RBC Auto (Bld) [#/Vol]Ordere d By: Magdy Pang on 02-16-2025 RBC (Bld) [#/Vol] 3.70 10*6/uL Low 4.2-5.4 [facility] Serum creatinine measurement (mass/volume)Ordered By: Magdy Pang on 02-16-2025 Creatinine [Mass/Vol] 2.04 mg/dL High 0.70-1.20 [facility] Serum glucose measurement (m ass/volume)Ordered By: Magdy Pang on 02-16-2025 Glucose [Mass/Vol] 129 mg/dL High 70-99 [facility] Serum or plasma calcium bijan urement (mass/volume)Ordered By: Magdy Pang on 02-16-2025 Calcium [Mass/Vol] 9.5 mg/dL 7.6-11.0 [facility] Serum or plasma urea nitroge n measurement (mass/volume)Ordered By: Magdy Pang on 02-16-2025 Urea nitrogen [Mass/Vol] 68 mg/dL High 4-19 [facility] Sodium levelOrdered By: Magdy Pang on 02-16-2025 Sodium [Moles/Vol] 131 mmol/L Low 133-145 [facility] Troponin T HS 2 HRon 025 Trop T High Sen 88 ng/L Invalid Interpretation Code <=14 [facility] Comment on above: Result Comment: Crit ical Result(s) Called at 1627: by: JOSH TREJO. ??Results read back by same. Performed By: #### L 499.0042 ####[facility] [address] [place], [address] Troponin T HS 4 HRon 025 Trop T High Sen Normal <=14 [facility] Comment on above: Result Comment: JENARO ENT DISCHARGED Performed By: #### L 499.0043 ####[facility] [address] [place], [address] Troponin T.cardiac [Mass/vol ume] in Serum or Plasma by High sensitivity methodOrdered By: Magdy Pang on 02-16-2025 Troponin T.cardiac High sensitivity method [Mass/Vol] 88 ng/L Critically high <14 [facility] Comment on above: Critical Result(s) C alled at 1627: by: JOSH WORMKAN TO MARTA. Results read back by same. Troponin T.cardiac High sensitivity method [Mass/Vol] 94 ng/L Critically high <14 [facility] Comment on above: Delta: 71 on 5-1300Critical Result(s) Called at 1447: by: JOSH WORKMAN TO LIN. Results read back by same. White blood cell (WBC) count Ordered By: Magdy Pang on 02-16-2025 WBC (Bld) [#/Vol] 6.1 10*3/uL 4.4-11.0 [facility] CRP, High Sensitivity 655304 on 02-15-2025 CRP, HIGH SENS 41.42 mg/L High 0.00-3.00 [facility] Comment on above: Result Comment: Resu lts confirmed ondilution. Relative Risk for Future Cardiovascular Event Low <1.00 Average 1.00 - 3.00 High >3.00Performed at: - [facility] [id number] Director: Chuy Rizvi PhD, Phone: [phone] Performed By: #### L 101.9900, L501.9520, L501.7300, L100.0100, L501.7400, L500.4050, L501.5500, L3100.0370 ####[facility] [address] [place], [address] Absolute lymphocyte countOrd ered By: Vincent Flores on 02-13-2025 Lymphocytes Auto (Unsp spec) [#/Vol] 1.58 10*3/uL 0.83-4.51 [facility] Absolute neutrophil countOrd ered By: Vincent Flores on 02-13-2025 Neutrophils (Bld) [#/Vol] 5.1 10*3/uL 2.0-7.7 [facility] Anion gap in Serum or Plasma Ordered By: Vincent Flores on 02-13-2025 Anion gap [Moles/Vol] 17 mmol/L High 5-15 [facility] Automated lymphocyte count a s percentage of total leukocytesOrdered By: Vincent Flores on 02-13-2025 Lymphocytes/100 WBC Auto (Unsp spec) 20.6 % 19-41 [facility] BUN/creatinine ratioOrdered By: Vincent Flores on 02-13-2025 Urea nitrogen/Creatinine [Mass ratio] 27.4 mg/mg High 10-20 [facility] Basophil percentageOrdered B y: Vincent Flores on 02-13-2025 Basophils/100 WBC (Bld) 0.7 % 0-1 [facility] Bilirubin, totalOrdered By: Vincnet Flores on 02-13-2025 Bilirubin [Mass/Vol] 1.18 mg/dL 0.00-1.30 [facility] Blood manual differential co mment interpretation (narrative result)Ordered By: Vincent Flores on 02-13-2025 Manual differential comment Cristhian (Bld) [Interp] SCANNED [facility] Blood polychromasia detectio n by light microscopyOrdered By: Vincent Flores on 02-13-2025 Polychromasia LM Ql (Bld) 1+ [facility] C-reactive protein measureme nt by high sensitivity methodOrdered By: Vincent Flores on 02-13-2025 C-reactive protein measurement by high sensitivity method 41.42 mg/L High 0.00-3.00 [facility] Comment on above: Results confirmed on dilution. Relative Risk for Future Cardiovascular Event Low <1.00 Average 1.00 - 3.00 High >3.00Performed at: [facility] [id number] Director: Chuy Rizvi PhD, Phone: [phone] CBC W/Diff, Automatedon 02-02 HYPOCHROMASIA 2+ Normal [facility] Comment on above: Performed By: #### L 101.9900, L501.9520, L501.7300, L100.0100, L501.7400, L500.4050, L501.5500, L3100.7870 ####[facility] [address] [place], [address] Anisocytosis Ql (Bld) 2+ Normal [facility] Comment on above: Performed By: #### L 101.9900, L501.9520, L501.7300, L100.0100, L501.7400, L500.4050, L501.5500, L3100.7870 ####[facility] [address] [place], [address] POLYCHROMASIA 1+ Normal [facility] Comment on above: Performed By: #### L 101.9900, L501.9520, L501.7300, L100.0100, L501.7400, L500.4050, L501.5500, L3100.7870 ####[facility] [address] [place], [address] PLT EST ADEQUATE Normal ADEQ [facility] Comment on above: Performed By: #### L 101.9900, L501.9520, L501.7300, L100.0100, L501.7400, L500.4050, L501.5500, L3100.7870 ####[facility] [address] [place], [address] SMEAR COMMENT SCANNED Normal [facility] Comment on above: Performed By: #### L 101.9900, L501.9520, L501.7300, L100.0100, L501.7400, L500.4050, L501.5500, L3100.7870 ####[facility] [address] [place], [address] Carbon dioxide, total [Moles /volume] in Central venous bloodOrdered By: Vincent Flores on 02-13-2025 CO2 [Moles/Vol] 24.2 mmol/L 21.0-32.0 [facility] Chloride assayOrdered By: Ishmael Flores on 02-13-2025 Chloride [Moles/Vol] 91 mmol/L Low 98-108 [facility] Comprehensive Metabolic Prof ilon 02-13-2025 Albumin [Mass/Vol] 4.1 g/dL Normal 3.4-4.8 [facility] Comment on above: Performed By: #### L 101.9900, L501.9520, L501.7300, L100.0100, L501.7400, L500.4050, L501.5500, L3100.7870 ####[facility] [address] [place], [address] Albumin/Globulin [Mass ratio] 1.2 {ratio} Normal 0.9-2.4 [facility] Comment on above: Performed By: #### L 101.9900, L501.9520, L501.7300, L100.0100, L501.7400, L500.4050, L501.5500, L3100.7870 ####[facility] [address] [place], [place], [id number] ALK PHOS 109 U/L High 35-104 [facility] Comment on above: Performed By: #### L 101.9900, L501.9520, L501.7300, L100.0100, L501.7400, L500.4050, L501.5500, L3100.7870 ####[facility] [address] [place], [address] ALT [Catalytic activity/Vol] 11 U/L Normal <=34 [facility] Comment on above: Performed By: #### L 101.9900, L501.9520, L501.7300, L100.0100, L501.7400, L500.4050, L501.5500, L3100.7870 ####[facility] [address] [place], [address] AST [Catalytic activity/Vol] 26 U/L Normal <=31 [facility] Comment on above: Performed By: #### L 101.9900, L501.9520, L501.7300, L100.0100, L501.7400, L500.4050, L501.5500, L3100.7870 ####[facility] [address] [place], [address] Bilirubin [Mass/Vol] 1.18 mg/dL Normal 0.00-1.30 [facility] Comment on above: Performed By: #### L 101.9900, L501.9520, L501.7300, L100.0100, L501.7400, L500.4050, L501.5500, L3100.7870 ####[facility] [address] [place], [address] BUN/CRE 27.4 RATIO High 10-20 [facility] Comment on above: Performed By: #### L 101.9900, L501.9520, L501.7300, L100.0100, L501.7400, L500.4050, L501.5500, L3100.7870 ####[facility] [address] [place], [address] Calcium [Mass/Vol] 9.7 mg/dL Normal 7.6-11.0 [facility] Comment on above: Performed By: #### L 101.9900, L501.9520, L501.7300, L100.0100, L501.7400, L500.4050, L501.5500, L3100.7870 ####[facility] [address] [place], [address] Chloride [Moles/Vol] 91 mmol/L Low 98-108 [facility] Comment on above: Performed By: #### L 101.9900, L501.9520, L501.7300, L100.0100, L501.7400, L500.4050, L501.5500, L3100.7870 ####[facility] [address] [place], [place], [id number] CO2 [Moles/Vol] 24.2 mmol/L Normal 21.0-32.0 [facility] Comment on above: Performed By: #### L 101.9900, L501.9520, L501.7300, L100.0100, L501.7400, L500.4050, L501.5500, L3100.7870 ####[facility] [address] [place], [place], [address] Creatinine [Mass/Vol] 2.25 mg/dL High 0.70-1.20 [facility] Comment on above: Performed By: #### L 101.9900, L501.9520, L501.7300, L100.0100, L501.7400, L500.4050, L501.5500, L3100.7870 ####[facility] [address] [place], [place], [id number] GAP 17 High 5-15 [facility] Comment on above: Performed By: #### L 101.9900, L501.9520, L501.7300, L100.0100, L501.7400, L500.4050, L501.5500, L3100.7870 ####[facility] [address] [place], [place], [address] GFR/1.73 sq M.predicted among non-blacks MDRD (S/P/Bld) [Vol rate/Area] 22 mL/min/{1.73_m2} Low >60 [facility] Comment on above: Result Comment: mL/m in/1.73m2 CKD-EPI Creatinine Equation (2020) Performed By: #### L 101.9900, L501.9520, L501.7300, L100.0100, L501.7400, L500.4050, L501.5500, L3100.7870 ####[facility] [address] [place], [address] Globulin (S) [Mass/Vol] 3.4 g/dL Normal 2.2-4.2 [facility] Comment on above: Performed By: #### L 101.9900, L501.9520, L501.7300, L100.0100, L501.7400, L500.4050, L501.5500, L3100.7870 ####[facility] [address] [place], [address] Glucose [Mass/Vol] 90 mg/dL Normal 70-99 [facility] Comment on above: Performed By: #### L 101.9900, L501.9520, L501.7300, L100.0100, L501.7400, L500.4050, L501.5500, L3100.7870 ####[facility] [address] [place], [address] Potassium [Moles/Vol] 3.5 mmol/L Normal 3.3-5.1 [facility] Comment on above: Performed By: #### L 101.9900, L501.9520, L501.7300, L100.0100, L501.7400, L500.4050, L501.5500, L3100.7870 ####[facility] [address] [place], [address] Sodium [Moles/Vol] 132 mmol/L Low 133-145 [facility] Comment on above: Performed By: #### L 101.9900, L501.9520, L501.7300, L100.0100, L501.7400, L500.4050, L501.5500, L3100.7870 ####[facility] [address] [place], [address] T PROT 7.4 g/dL Normal 5.9-8.4 [facility] Comment on above: Performed By: #### L 101.9900, L501.9520, L501.7300, L100.0100, L501.7400, L500.4050, L501.5500, L3100.7870 ####[facility] [address] [place], [place], [address] Urea nitrogen [Mass/Vol] 62 mg/dL High 4-19 [facility] Comment on above: Performed By: #### L 101.9900, L501.9520, L501.7300, L100.0100, L501.7400, L500.4050, L501.5500, L3100.7870 ####[facility] [address] [place], [address] Eosinophil percentageOrdered By: Vincent Flores on 02-13-2025 Eosinophils/100 WBC (Bld) 1.4 % 0-5 [facility] Erythrocyte Sed Rateon 02-13 SED RATE 25 mm/hr Normal 0-30 [facility] Comment on above: Performed By: #### L 101.9900, L501.9520, L501.7300, L100.0100, L501.7400, L500.4050, L501.5500, L3100.7870 ####[facility] [address] [place], [address] Erythrocyte distribution wid th ratioOrdered By: Vincent Flores on 02-13-2025 Erythrocyte distribution width (RBC) [Ratio] 24.1 % High 11.6-14.6 [facility] Erythrocyte distribution wid th standard deviationOrdered By: Vincent Flores on 02-13-2025 Erythrocyte distribution width (RBC) [Ratio] 76.2 fl High 35.1-43.9 [facility] Erythrocyte sedimentation ra teOrdered By: Vincent Flores on 02-13-2025 ESR (Bld) [Velocity] 25 mm/h 0-30 [facility] Glomerular filtration rate ( GFR) estimation/1.73 sq m using serum, plasma, or whole bOrdered By: Vincent Flores on 02-13-2025 GFR/1.73 sq M.predicted among non-blacks MDRD (S/P/Bld) [Vol rate/Area] 22 mL/min/{1.73_m2} Low >60 [facility] Comment on above: mL/min/1.73m2 CKD-EP I Creatinine Equation (2020) Hematocrit Auto (Bld) [Volum e fraction]Ordered By: Vincent Flores 02-13-2025 Hematocrit (Bld) [Volume fraction] 31.1 % Low 37-47 [facility] Hemoglobin measurementOrdere d By: Vincent Flores 02-13-2025 Hemoglobin (Bld) [Mass/Vol] 9.8 g/dL Low 12.0-15.0 [facility] Hypochromatic red blood cell detectionOrdered By: Vincent Flores 02-13-2025 Hypochromia Ql (Bld) 2+ [facility] Immature granulocytes/100 WB C Auto (Bld)Ordered By: Vincent Flores 02-13-2025 Immature granulocytes/100 WBC (Bld) 0.300 % 0.0-0.9 [facility] Comment on above: IG% - Immature Granu locytes (promyelocytes, myelocytes and metamyelocytes) > 1% indicates that a LEFT SHIFT is Present. Laboratory - Chemistry and C hemistry - challengeOrdered By: Vincent Flores 02-13-2025 AST [Catalytic activity/Vol] 26 U/L <32 [facility] Laboratory - Hematology and Cell countsOrdered By: Vincent Flores 02-13-2025 Anisocytosis Ql (Bld) 2+ [facility] MCV (mean corpuscular volume ) determinationOrdered By: Vincent Flores 02-13-2025 MCV (RBC) [Entitic vol] 87.6 fL 81-99 [facility] Mean corpuscular hemoglobin (MCH) determinationOrdered By: Vincent Flores 02-13-2025 MCH (RBC) [Entitic mass] 27.6 pg 27.0-32.0 [facility] Mean corpuscular hemoglobin concentration (MCHC) determinationOrdered By: Vincent Flores 02-13-2025 MCHC (RBC) [Mass/Vol] 31.5 g/dL Low 32-36 [facility] Mean platelet volume determi nationOrdered By: Vincent Flores on 02-13-2025 Platelet mean volume (Bld) [Entitic vol] 10.1 fL 6.2-12.0 [facility] Monocyte percentageOrdered B y: Vincent Flores on 02-13-2025 Monocytes/100 WBC (Bld) 11.1 % High 0-10 [facility] Neutrophil percentageOrdered By: Vincent Flores on 02-13-2025 Neutrophils/100 WBC (Bld) 65.9 % 47-70 [facility] No Panel InformationOrdered By: Vincent Mark on 02-13-2025 2+ [facility] 26 U/L <32 [facility] Nucleated red blood cell per centageOrdered By: Vincent Mark on 02-13-2025 Nucleated RBC/100 WBC (Bld) [Ratio] 0 % 0-5 [facility] Osmolality urOrdered By: Vincent Flores on 02-13-2025 Osmolality (U) [Osmolality] 315 mOsm/KG >50 [facility] Comment on above: Normal Urine Referen ce Ranges Random: 50 - 1200 mOsm/kg H20 depending on fluid intake Random: >850 mOsm/kg after 12 hour fluid restriction 24 hour: ~300 - 900 mOsm/kg H2O Osmolality, Serumon 02-14-20 25 OSMOLALITY,SER 295 mOsm/KG Normal 280-301 [facility] Comment on above: Performed By: #### L 101.9900, L501.9520, L501.7300, L100.0100, L501.7400, L500.4050, L501.5500, L3100.7870 ####[facility] [address] [place], [place], [address] Osmolality, Urineon 02-14-20 25 OSMOLALITY,UR 315 mOsm/KG Normal [facility] Comment on above: Result Comment: Norm al Urine Reference Ranges Random: 50 - 1200 mOsm/kg H20 depending on fluid intake Random: >850 mOsm/kg after 12 hour fluid restriction 24 hour: 300 - 900 mOsm/kg H2O Performed By: #### L 101.9900, L501.9520, L501.7300, L100.0100, L501.7400, L500.4050, L501.5500, L3100.7870 ####[facility] [address] [place], [address] Platelet countOrdered By: Ishmael Flores on 02-13-2025 Platelets (Bld) [#/Vol] 163 10*3/uL 150-450 [facility] Platelet estimateOrdered By: Vincent Flores on 02-13-2025 Platelets LM Ql (Bld) ADEQUATE ADEQ [facility] Potassium measurement (mass/ volume)Ordered By: Vincent Flores on 02-13-2025 Potassium (Unsp spec) [Mass/Vol] 3.5 mmol/L 3.3-5.1 [facility] RBC Auto (Bld) [#/Vol]Ordere d By: Vincent Flores on 02-13-2025 RBC (Bld) [#/Vol] 3.55 10*6/uL Low 4.2-5.4 [facility] Serum creatinine measurement (mass/volume)Ordered By: Vincent Flores on 02-13-2025 Creatinine [Mass/Vol] 2.25 mg/dL High 0.70-1.20 [facility] Serum globulin measurementOr dered By: Vincent Flores 02-13-2025 Globulin (S) [Mass/Vol] 3.4 g/dL 2.2-4.2 [facility] Serum glucose measurement (m ass/volume)Ordered By: Vincent Flores 02-13-2025 Glucose [Mass/Vol] 90 mg/dL 70-99 [facility] Serum or plasma alanine craven otransferase (ALT) measurementOrdered By: Vincent Flores 02-13-2025 ALT [Catalytic activity/Vol] 11 U/L <35 [facility] Serum or plasma albumin bijan urement (mass/volume)Ordered By: Vincent Flores on 02-13-2025 Albumin [Mass/Vol] 4.1 g/dL 3.4-4.8 [facility] Serum or plasma albumin/glob ulin mass ratioOrdered By: Vincent Flores 02-13-2025 Albumin/Globulin [Mass ratio] 1.2 {ratio} 0.9-2.4 [facility] Serum or plasma alkaline da sphatase measurementOrdered By: Vincent Mark on 02-13-2025 ALP [Catalytic activity/Vol] 109 U/L High 35-104 [facility] Serum or plasma calcium bijan urement (mass/volume)Ordered By: Vincent Flores on 02-13-2025 Calcium [Mass/Vol] 9.7 mg/dL 7.6-11.0 [facility] Serum or plasma urea nitroge n measurement (mass/volume)Ordered By: Vincent Flores on 02-13-2025 Urea nitrogen [Mass/Vol] 62 mg/dL High 4-19 [facility] Sodium levelOrdered By: Vincent Mark on 02-13-2025 Sodium [Moles/Vol] 132 mmol/L Low 133-145 [facility] TSH DL <= 0.005 mIU/L QnOrde red By: Vincent Flores on 02-13-2025 TSH Qn 3.180 uIU/mL 0.300-4.200 [facility] Thyroid Stim Hormone (TSH)on 02-13-2025 TSH 3.180 uIU/mL Normal 0.300-4.200 [facility] Comment on above: Performed By: #### L 101.9900, L501.9520, L501.7300, L100.0100, L501.7400, L500.4050, L501.5500, L3100.7870 ####[facility] [address] [place], [address] Total proteinOrdered By: Vincent Flores on 02-13-2025 Protein [Mass/Vol] 7.4 g/dL 5.9-8.4 [facility] Urine Sodiumon 02-13-2025 Sodium (U) [Moles/Vol] 57 mmol/L Normal Not Establ. [facility] Comment on above: Performed By: #### L 101.9900, L501.9520, L501.7300, L100.0100, L501.7400, L500.4050, L501.5500, L3100.7870 ####[facility] [address] [place], [address] Urine sodium measurement (mo les/volume)Ordered By: Vincent Flores on 02-13-2025 Sodium (U) [Moles/Vol] 57 mmol/L Not Establ. [facility] White blood cell (WBC) count Ordered By: Vincent Flores on 02-13-2025 WBC (Bld) [#/Vol] 7.7 10*3/uL 4.4-11.0 [facility] Pacemaker Checkon 02-08-2025 Pacemaker Check Normal [facility] Anion gap in Serum or Plasma Ordered By: Juan Diego Huynh on 02-05-2025 Anion gap [Moles/Vol] 17 mmol/L High 5-15 [facility] BUN/creatinine ratioOrdered By: Juan Diego Huynh on 02-05-2025 Urea nitrogen/Creatinine [Mass ratio] 33.5 mg/mg High 10-20 [facility] Basic Metabolic Profile (BMP )on 02-05-2025 BUN/CRE 33.5 RATIO High 10-20 [facility] Comment on above: Performed By: #### L 503.7505, L500.2500 ####[facility] [address] [place], [address] Calcium [Mass/Vol] 9.5 mg/dL Normal 7.6-11.0 [facility] Comment on above: Performed By: #### L 503.7505, L500.2500 ####[facility] [address] [place], [address] Chloride [Moles/Vol] 90 mmol/L Low 98-108 [facility] Comment on above: Performed By: #### L 503.7505, L500.2500 ####[facility] [address] [place], [address] CO2 [Moles/Vol] 22.7 mmol/L Normal 21.0-32.0 [facility] Comment on above: Performed By: #### L 503.7505, L500.2500 ####[facility] [address] [place], [address] Creatinine [Mass/Vol] 2.11 mg/dL High 0.70-1.20 [facility] Comment on above: Performed By: #### L 503.7505, L500.2500 ####[facility] [address] [place], [address] GAP 17 High 5-15 [facility] Comment on above: Performed By: #### L 503.7505, L500.2500 ####[facility] [address] [place], [address] GFR/1.73 sq M.predicted among non-blacks MDRD (S/P/Bld) [Vol rate/Area] 23 mL/min/{1.73_m2} Low >60 [facility] Comment on above: Result Comment: mL/m in/1.73m2 CKD-EPI Creatinine Equation (2020) Performed By: #### L 503.7505, L500.2500 ####[facility] [address] [place], [address] Glucose [Mass/Vol] 159 mg/dL High 70-99 [facility] Comment on above: Performed By: #### L 503.7505, L500.2500 ####[facility] [address] [place], [address] Potassium [Moles/Vol] 4.2 mmol/L Normal 3.3-5.1 [facility] Comment on above: Performed By: #### L 503.7505, L500.2500 ####[facility] [address] [place], [address] Sodium [Moles/Vol] 130 mmol/L Low 133-145 [facility] Comment on above: Performed By: #### L 503.7505, L500.2500 ####[facility] [address] [place], [address] Urea nitrogen [Mass/Vol] 71 mg/dL High 4-19 [facility] Comment on above: Performed By: #### L 503.7505, L500.2500 ####[facility] [address] [place], [address] Carbon dioxide, total [Moles /volume] in Central venous bloodOrdered By: Juan Diego Huynh on 02-05-2025 CO2 [Moles/Vol] 22.7 mmol/L 21.0-32.0 [facility] Cardiology Visit Reporton Cardiology Visit Report Normal [facility] Chloride assayOrdered By: Jennifer Huynh on 02-05-2025 Chloride [Moles/Vol] 90 mmol/L Low 98-108 [facility] Glomerular filtration rate ( GFR) estimation/1.73 sq m using serum, plasma, or whole bOrdered By: Juan Diego Huynh on 02-05-2025 GFR/1.73 sq M.predicted among non-blacks MDRD (S/P/Bld) [Vol rate/Area] 23 mL/min/{1.73_m2} Low >60 [facility] Comment on above: mL/min/1.73m2 CKD-EP I Creatinine Equation (2020) Natriuretic peptide.B prohor daria N-Terminal [Mass/volume] in Serum or PlasmaOrdered By: Juan Diego Huynh on 02-05-2025 Natriuretic peptide.B prohormone N-Terminal [Mass/Vol] 9503 pg/mL High <1800 [facility] Comment on above: Heart Failure Unlike ly: < 300 pg/mLHeart Failure Likely< 50 Years: > 450 pg/mL50-75 Years: > 900 pg/mL>75 Years: > 1800 pg/mL Potassium measurement (mass/ volume)Ordered By: Juan Diego Huynh on 02-05-2025 Potassium (Unsp spec) [Mass/Vol] 4.2 mmol/L 3.3-5.1 [facility] Pro- Brain NATRIURETIC PEPTI Drew 02-05-2025 Natriuretic peptide B (Bld) [Mass/Vol] 9503 pg/mL High <=1800 [facility] Comment on above: Result Comment: Hear t Failure Unlikely: < 300 pg/mLHeart Failure Likely< 50 Years: > 450 pg/mL50-75 Years: > 900 pg/mL>75 Years: > 1800 pg/mL Performed By: #### L 503.7505, L500.2500 ####[facility] [address] [place], [address] Serum creatinine measurement (mass/volume)Ordered By: Juan Diego Huynh on 02-05-2025 Creatinine [Mass/Vol] 2.11 mg/dL High 0.70-1.20 [facility] Serum glucose measurement (m ass/volume)Ordered By: Juan Diego Huynh on 02-05-2025 Glucose [Mass/Vol] 159 mg/dL High 70-99 [facility] Serum or plasma calcium bijan urement (mass/volume)Ordered By: Juan Diego Huynh on 02-05-2025 Calcium [Mass/Vol] 9.5 mg/dL 7.6-11.0 [facility] Serum or plasma urea nitroge n measurement (mass/volume)Ordered By: Juan Diego Huynh on 02-05-2025 Urea nitrogen [Mass/Vol] 71 mg/dL High 4-19 [facility] Sodium levelOrdered By: Phi Huyhn on 02-05-2025 Sodium [Moles/Vol] 130 mmol/L Low 133-145 [facility] Absolute lymphocyte countOrd ered By: Vincent Flores on 02-01-2025 Lymphocytes Auto (Unsp spec) [#/Vol] 1.38 10*3/uL 0.83-4.51 [facility] Absolute neutrophil countOrd ered By: Vincent Flores on 02-01-2025 Neutrophils (Bld) [#/Vol] 5.0 10*3/uL 2.0-7.7 [facility] Anion gap in Serum or Plasma Ordered By: Vincent Flores on 02-01-2025 Anion gap [Moles/Vol] 16 mmol/L High 5-15 [facility] Automated lymphocyte count a s percentage of total leukocytesOrdered By: Vincent Flores on 02-01-2025 Lymphocytes/100 WBC Auto (Unsp spec) 18.6 % Low 19-41 [facility] BUN/creatinine ratioOrdered By: Vincent Flores on 02-01-2025 Urea nitrogen/Creatinine [Mass ratio] 30.6 mg/mg High 10-20 [facility] Basophil percentageOrdered B y: Vincent Flores on 02-01-2025 Basophils/100 WBC (Bld) 0.7 % 0-1 [facility] Bilirubin, totalOrdered By: Vincent Flores on 02-01-2025 Bilirubin [Mass/Vol] 0.99 mg/dL 0.00-1.30 [facility] CBC W/Diff, Automatedon 01-04 Absolute Lymph 1.38 X10 3/uL Normal 0.83-4.51 [facility] Comment on above: Performed By: #### L 500.4050, L506.1001, L501.9520, L100.0100 ####[facility] [address] [place], [address] Absolute Neut 5.0 X10 3/uL Normal 2.0-7.7 [facility] Comment on above: Performed By: #### L 500.4050, L506.1001, L501.9520, L100.0100 ####[facility] [address] [place], [address] Basophils/100 WBC (Bld) 0.7 % Normal 0-1 [facility] Comment on above: Performed By: #### L 500.4050, L506.1001, L501.9520, L100.0100 ####[facility] [address] [place], [address] Eosinophils/100 WBC (Bld) 1.6 % Normal 0-5 [facility] Comment on above: Performed By: #### L 500.4050, L506.1001, L501.9520, L100.0100 ####[facility] [address] [place], [address] Erythrocyte distribution width (RBC) [Ratio] 19.9 % High 11.6-14.6 [facility] Comment on above: Performed By: #### L 500.4050, L506.1001, L501.9520, L100.0100 ####[facility] [address] [place], [address] Hematocrit (Bld) [Volume fraction] 29.6 % Low 37-47 [facility] Comment on above: Performed By: #### L 500.4050, L506.1001, L501.9520, L100.0100 ####[facility] [address] [place], [address] Hemoglobin (Bld) [Mass/Vol] 9.5 g/dL Low 12.0-15.0 [facility] Comment on above: Performed By: #### L 500.4050, L506.1001, L501.9520, L100.0100 ####[facility] [address] [place], [address] IG% 0.700 Normal 0.0-0.9 [facility] Comment on above: Result Comment: IG% - Immature Granulocytes (promyelocytes, myelocytes andmetamyelocytes) > 1% indicates that a LEFT SHIFT is Present. Performed By: #### L 500.4050, L506.1001, L501.9520, L100.0100 ####[facility] [address] [place], [address] Lymphocytes/100 WBC (Bld) 18.6 % Low 19-41 [facility] Comment on above: Performed By: #### L 500.4050, L506.1001, L501.9520, L100.0100 ####[facility] [address] [place], [address] MCH (RBC) [Entitic mass] 27.1 pg Normal 27.0-32.0 [facility] Comment on above: Performed By: #### L 500.4050, L506.1001, L501.9520, L100.0100 ####[facility] [address] [place], [address] MCHC (RBC) [Mass/Vol] 32.1 g/dL Normal 32-36 [facility] Comment on above: Performed By: #### L 500.4050, L506.1001, L501.9520, L100.0100 ####[facility] [address] [place], [address] MCV (RBC) [Entitic vol] 84.6 fL Normal 81-99 [facility] Comment on above: Performed By: #### L 500.4050, L506.1001, L501.9520, L100.0100 ####[facility] [address] [place], [address] Monocytes/100 WBC (Bld) 11.2 % High 0-10 [facility] Comment on above: Performed By: #### L 500.4050, L506.1001, L501.9520, L100.0100 ####[facility] [address] [place], [address] Neutrophils/100 WBC (Bld) 67.2 % Normal 47-70 [facility] Comment on above: Performed By: #### L 500.4050, L506.1001, L501.9520, L100.0100 ####[facility] [address] [place], [address] Nucleated RBC (Bld) [#/Vol] 0 10*3/uL Normal 0-5 [facility] Comment on above: Performed By: #### L 500.4050, L506.1001, L501.9520, L100.0100 ####[facility] [address] [place], [address] Platelet mean volume (Bld) [Entitic vol] 9.6 fL Normal 6.2-12.0 [facility] Comment on above: Performed By: #### L 500.4050, L506.1001, L501.9520, L100.0100 ####[facility] [address] [place], [address] Platelets (Bld) [#/Vol] 209 10*3/uL Normal 150-450 [facility] Comment on above: Performed By: #### L 500.4050, L506.1001, L501.9520, L100.0100 ####[facility] [address] [place], [address] RBC (Bld) [#/Vol] 3.50 10*6/uL Low 4.2-5.4 [facility] Comment on above: Performed By: #### L 500.4050, L506.1001, L501.9520, L100.0100 ####[facility] [address] [place], [address] RDW SD 61.5 fl High 35.1-43.9 [facility] Comment on above: Performed By: #### L 500.4050, L506.1001, L501.9520, L100.0100 ####[facility] [address] [place], [address] WBC (Bld) [#/Vol] 7.4 10*3/uL Normal 4.4-11.0 [facility] Comment on above: Performed By: #### L 500.4050, L506.1001, L501.9520, L100.0100 ####[facility] [address] [place], [address] Carbon dioxide, total [Moles /volume] in Central venous bloodOrdered By: Vincent Flores on 02-01-2025 CO2 [Moles/Vol] 25.1 mmol/L 21.0-32.0 [facility] Chloride assayOrdered By: Ishmael Flores on 02-01-2025 Chloride [Moles/Vol] 88 mmol/L Low 98-108 [facility] Comprehensive Metabolic Prof ilon 02-01-2025 Albumin [Mass/Vol] 4.2 g/dL Normal 3.4-4.8 [facility] Comment on above: Performed By: #### L 500.4050, L506.1001, L501.9520, L100.0100 ####[facility] [address] [place], [address] Albumin/Globulin [Mass ratio] 1.3 {ratio} Normal 0.9-2.4 [facility] Comment on above: Performed By: #### L 500.4050, L506.1001, L501.9520, L100.0100 ####[facility] [address] [place], [address] ALK PHOS 120 U/L High 35-104 [facility] Comment on above: Performed By: #### L 500.4050, L506.1001, L501.9520, L100.0100 ####[facility] [address] [place], [address] ALT [Catalytic activity/Vol] 11 U/L Normal <=34 [facility] Comment on above: Performed By: #### L 500.4050, L506.1001, L501.9520, L100.0100 ####[facility] [address] [place], [address] AST [Catalytic activity/Vol] 26 U/L Normal <=31 [facility] Comment on above: Performed By: #### L 500.4050, L506.1001, L501.9520, L100.0100 ####[facility] [address] [place], [address] Bilirubin [Mass/Vol] 0.99 mg/dL Normal 0.00-1.30 [facility] Comment on above: Performed By: #### L 500.4050, L506.1001, L501.9520, L100.0100 ####[facility] [address] [place], [address] BUN/CRE 30.6 RATIO High 10-20 [facility] Comment on above: Performed By: #### L 500.4050, L506.1001, L501.9520, L100.0100 ####[facility] [address] [place], [address] Calcium [Mass/Vol] 9.3 mg/dL Normal 7.6-11.0 [facility] Comment on above: Performed By: #### L 500.4050, L506.1001, L501.9520, L100.0100 ####[facility] [address] [place], [address] Chloride [Moles/Vol] 88 mmol/L Low 98-108 [facility] Comment on above: Performed By: #### L 500.4050, L506.1001, L501.9520, L100.0100 ####[facility] [address] [place], [address] CO2 [Moles/Vol] 25.1 mmol/L Normal 21.0-32.0 [facility] Comment on above: Performed By: #### L 500.4050, L506.1001, L501.9520, L100.0100 ####[facility] [address] [place], [address] Creatinine [Mass/Vol] 2.46 mg/dL High 0.70-1.20 [facility] Comment on above: Performed By: #### L 500.4050, L506.1001, L501.9520, L100.0100 ####[facility] [address] [place], [address] GAP 16 High 5-15 [facility] Comment on above: Performed By: #### L 500.4050, L506.1001, L501.9520, L100.0100 ####[facility] [address] [place], [address] GFR/1.73 sq M.predicted among non-blacks MDRD (S/P/Bld) [Vol rate/Area] 19 mL/min/{1.73_m2} Low >60 [facility] Comment on above: Result Comment: mL/m in/1.73m2 CKD-EPI Creatinine Equation (2020) Performed By: #### L 500.4050, L506.1001, L501.9520, L100.0100 ####[facility] [address] [place], [address] Globulin (S) [Mass/Vol] 3.2 g/dL Normal 2.2-4.2 [facility] Comment on above: Performed By: #### L 500.4050, L506.1001, L501.9520, L100.0100 ####[facility] [address] [place], [address] Glucose [Mass/Vol] 138 mg/dL High 70-99 [facility] Comment on above: Performed By: #### L 500.4050, L506.1001, L501.9520, L100.0100 ####[facility] [address] [place], [address] Potassium [Moles/Vol] 3.4 mmol/L Normal 3.3-5.1 [facility] Comment on above: Performed By: #### L 500.4050, L506.1001, L501.9520, L100.0100 ####[facility] [address] [place], [address] Sodium [Moles/Vol] 129 mmol/L Low 133-145 [facility] Comment on above: Performed By: #### L 500.4050, L506.1001, L501.9520, L100.0100 ####[facility] [address] [place], [address] T PROT 7.4 g/dL Normal 5.9-8.4 [facility] Comment on above: Performed By: #### L 500.4050, L506.1001, L501.9520, L100.0100 ####[facility] [address] [place], [address] Urea nitrogen [Mass/Vol] 75 mg/dL High 4-19 [facility] Comment on above: Performed By: #### L 500.4050, L506.1001, L501.9520, L100.0100 ####[facility] [address] [place], [address] Eosinophil percentageOrdered By: Vincent Flores on 02-01-2025 Eosinophils/100 WBC (Bld) 1.6 % 0-5 [facility] Erythrocyte distribution wid th ratioOrdered By: Vincent Flores on 02-01-2025 Erythrocyte distribution width (RBC) [Ratio] 19.9 % High 11.6-14.6 [facility] Erythrocyte distribution wid th standard deviationOrdered By: Vincent Flores on 02-01-2025 Erythrocyte distribution width (RBC) [Ratio] 61.5 fl High 35.1-43.9 [facility] Glomerular filtration rate ( GFR) estimation/1.73 sq m using serum, plasma, or whole bOrdered By: Vincent Flores on 02-01-2025 GFR/1.73 sq M.predicted among non-blacks MDRD (S/P/Bld) [Vol rate/Area] 19 mL/min/{1.73_m2} Low >60 [facility] Comment on above: mL/min/1.73m2 CKD-EP I Creatinine Equation (2020) Hematocrit Auto (Bld) [Volum e fraction]Ordered By: Vincent Flores on 02-01-2025 Hematocrit (Bld) [Volume fraction] 29.6 % Low 37-47 [facility] Hemoglobin measurementOrdere d By: Vincent Flores 02-01-2025 Hemoglobin (Bld) [Mass/Vol] 9.5 g/dL Low 12.0-15.0 [facility] Immature granulocytes/100 WB C Auto (Bld)Ordered By: Vincent Flores on 02-01-2025 Immature granulocytes/100 WBC (Bld) 0.700 % 0.0-0.9 [facility] Comment on above: IG% - Immature Granu locytes (promyelocytes, myelocytes and metamyelocytes) > 1% indicates that a LEFT SHIFT is Present. Laboratory - Chemistry and C hemistry - challengeOrdered By: Vincent Flores on 02-01-2025 AST [Catalytic activity/Vol] 26 U/L <32 [facility] MCV (mean corpuscular volume ) determinationOrdered By: Vincent Flores on 02-01-2025 MCV (RBC) [Entitic vol] 84.6 fL 81-99 [facility] Mean corpuscular hemoglobin (MCH) determinationOrdered By: Vincent Flores on 02-01-2025 MCH (RBC) [Entitic mass] 27.1 pg 27.0-32.0 [facility] Mean corpuscular hemoglobin concentration (MCHC) determinationOrdered By: Vincent Flores 02-01-2025 MCHC (RBC) [Mass/Vol] 32.1 g/dL 32-36 [facility] Mean platelet volume determi nationOrdered By: Vincent Flores on 02-01-2025 Platelet mean volume (Bld) [Entitic vol] 9.6 fL 6.2-12.0 [facility] Monocyte percentageOrdered B y: Vincent Flores on 02-01-2025 Monocytes/100 WBC (Bld) 11.2 % High 0-10 [facility] Neutrophil percentageOrdered By: Vincent Flores on 02-01-2025 Neutrophils/100 WBC (Bld) 67.2 % 47-70 [facility] No Panel InformationOrdered By: Vincent Flores on 02-01-2025 26 U/L <32 [facility] Nucleated red blood cell per centageOrdered By: Vincent Flores on 02-01-2025 Nucleated RBC/100 WBC (Bld) [Ratio] 0 % 0-5 [facility] Platelet countOrdered By: Ishmael Flores on 02-01-2025 Platelets (Bld) [#/Vol] 209 10*3/uL 150-450 [facility] Potassium measurement (mass/ volume)Ordered By: Vincent Flores on 02-01-2025 Potassium (Unsp spec) [Mass/Vol] 3.4 mmol/L 3.3-5.1 [facility] RBC Auto (Bld) [#/Vol]Ordere d By: Vincent Flores on 02-01-2025 RBC (Bld) [#/Vol] 3.50 10*6/uL Low 4.2-5.4 [facility] Serum creatinine measurement (mass/volume)Ordered By: Vincent Flores on 02-01-2025 Creatinine [Mass/Vol] 2.46 mg/dL High 0.70-1.20 [facility] Serum globulin measurementOr dered By: Vincent Flores 02-01-2025 Globulin (S) [Mass/Vol] 3.2 g/dL 2.2-4.2 [facility] Serum glucose measurement (m ass/volume)Ordered By: Vincent Flores 02-01-2025 Glucose [Mass/Vol] 138 mg/dL High 70-99 [facility] Serum or plasma alanine craven otransferase (ALT) measurementOrdered By: Vincent Flores 02-01-2025 ALT [Catalytic activity/Vol] 11 U/L <35 [facility] Serum or plasma albumin bijan urement (mass/volume)Ordered By: Vincent Flores 02-01-2025 Albumin [Mass/Vol] 4.2 g/dL 3.4-4.8 [facility] Serum or plasma albumin/glob ulin mass ratioOrdered By: Vincent Flores 02-01-2025 Albumin/Globulin [Mass ratio] 1.3 {ratio} 0.9-2.4 [facility] Serum or plasma alkaline da sphatase measurementOrdered By: Vincent Flores 02-01-2025 ALP [Catalytic activity/Vol] 120 U/L High 35-104 [facility] Serum or plasma calcium bijan urement (mass/volume)Ordered By: Vincent Flores 02-01-2025 Calcium [Mass/Vol] 9.3 mg/dL 7.6-11.0 [facility] Serum or plasma urea nitroge n measurement (mass/volume)Ordered By: Vincent Flores 02-01-2025 Urea nitrogen [Mass/Vol] 75 mg/dL High 4-19 [facility] Sodium levelOrdered By: Vincent Flores on 02-01-2025 Sodium [Moles/Vol] 129 mmol/L Low 133-145 [facility] TSH DL <= 0.005 mIU/L QnOrde red By: Vincent Flores on 02-01-2025 TSH Qn 4.710 uIU/mL High 0.300-4.200 [facility] Thyroid Stim Hormone (TSH)on 02-01-2025 TSH 4.710 uIU/mL High 0.300-4.200 [facility] Comment on above: Performed By: #### L 500.4050, L506.1001, L501.9520, L100.0100 ####[facility] [address] [place], [place], [address] Total proteinOrdered By: Vincent Flores on 02-01-2025 Protein [Mass/Vol] 7.4 g/dL 5.9-8.4 [facility] Vitamin D,25 Hydroxyon 02-01 Vitamin D 25-OH 36.3 ng/mL Normal 30-100 [facility] Comment on above: Result Comment: Haydee min D StatusDeficiency: <20 ng/mL (50nmol/L)Insufficiency: 20-30 ng/mL (50-75 nmol/L)Sufficiency: 30-100 ng/mL (75-250 nmol/L)Toxicity: >100 ng/mL (>250 nmol/L) Performed By: #### L 500.4050, L506.1001, L501.9520, L100.0100 ####[facility] [address] [place], [address] White blood cell (WBC) count Ordered By: Vincent Flores on 02-01-2025 WBC (Bld) [#/Vol] 7.4 10*3/uL 4.4-11.0 [facility] AST(SGOT)on 01-23-2025 AST [Catalytic activity/Vol] 24 U/L Normal <=31 [facility] Comment on above: Performed By: #### L 501.4100, L3890.6301, L501.4600, L100.0100, L501.9520, L001.0705, L501.2300, L501.4305, L501.4405, L500.4100, L506.1001 ####[facility] [address] [place], [place], [id number] Absolute lymphocyte countOrd ered By: Vincent Flores on 01-23-2025 Lymphocytes Auto (Unsp spec) [#/Vol] 1.55 10*3/uL 0.83-4.51 [facility] Absolute neutrophil countOrd ered By: Vincent Flores on 01-23-2025 Neutrophils (Bld) [#/Vol] 6.1 10*3/uL 2.0-7.7 [facility] Alanine Aminotransferas (SGP T)on 01-23-2025 ALT [Catalytic activity/Vol] 11 U/L Normal <=34 [facility] Comment on above: Performed By: #### L 501.4100, L3890.6301, L501.4600, L100.0100, L501.9520, L001.0705, L501.2300, L501.4305, L501.4405, L500.4100, L506.1001 ####[facility] [address] [place], [place], [id number] Alkaline Phosphataseon 01-23 ALK PHOS 126 U/L High 35-104 [facility] Comment on above: Performed By: #### L 501.4100, L3890.6301, L501.4600, L100.0100, L501.9520, L001.0705, L501.2300, L501.4305, L501.4405, L500.4100, L506.1001 ####[facility] [address] [facility] [address] [place], [place], [id number] Anion gap in Serum or Plasma Ordered By: Jeremy Mcgarry on 01-23-2025 Anion gap [Moles/Vol] 17 mmol/L High 5-15 [facility] Automated lymphocyte count a s percentage of total leukocytesOrdered By: Vincent Flores on 01-23-2025 Lymphocytes/100 WBC Auto (Unsp spec) 16.8 % Low 19-41 [facility] BUN/creatinine ratioOrdered By: Jeremy Mcgarry on 01-23-2025 Urea nitrogen/Creatinine [Mass ratio] 29.1 mg/mg High 10-20 [facility] Basophil percentageOrdered B y: Vincent Flores on 01-23-2025 Basophils/100 WBC (Bld) 0.8 % 0-1 [facility] Bilirubin, totalOrdered By: Vincent Flores on 01-23-2025 Bilirubin [Mass/Vol] 1.15 mg/dL 0.00-1.30 [facility] Blood manual differential co mment interpretation (narrative result)Ordered By: Vincent Flores on 01-23-2025 Manual differential comment Cristhian (Bld) [Interp] SCANNED [facility] Blood polychromasia detectio n by light microscopyOrdered By: Vincent Flores on 01-23-2025 Polychromasia LM Ql (Bld) 1+ [facility] CBC W/Diff, Automatedon 01-03 HYPOCHROMASIA 3+ Normal [facility] Comment on above: Performed By: #### L 501.4100, L3890.6301, L501.4600, L100.0100, L501.9520, L001.0705, L501.2300, L501.4305, L501.4405, L500.4100, L506.1001 ####[facility] [address] [place], [place], [id number] Anisocytosis Ql (Bld) 2+ Normal [facility] Comment on above: Performed By: #### L 501.4100, L3890.6301, L501.4600, L100.0100, L501.9520, L001.0705, L501.2300, L501.4305, L501.4405, L500.4100, L506.1001 ####[facility] [address] [place], [address] PLT EST ADEQUATE Normal ADEQ [facility] Comment on above: Performed By: #### L 501.4100, L3890.6301, L501.4600, L100.0100, L501.9520, L001.0705, L501.2300, L501.4305, L501.4405, L500.4100, L506.1001 ####[facility] [address] [place], [address] POLYCHROMASIA 1+ Normal [facility] Comment on above: Performed By: #### L 501.4100, L3890.6301, L501.4600, L100.0100, L501.9520, L001.0705, L501.2300, L501.4305, L501.4405, L500.4100, L506.1001 ####[facility] [address] [place], [address] SMEAR COMMENT SCANNED Normal [facility] Comment on above: Performed By: #### L 501.4100, L3890.6301, L501.4600, L100.0100, L501.9520, L001.0705, L501.2300, L501.4305, L501.4405, L500.4100, L506.1001 ####[facility] [address] [place], [address] CBC-Complete Blood Cnt No Di ffon 01-23-2025 SCAN INDICATED? YES- FLAGS NOTED Normal [facility] Comment on above: Result Comment: DR. FLORES ORDERED CBCD Performed By: #### L 501.0900, L501.5200, L500.3600, L100.0500 ####[facility] [address] [place], [place], [id number] Erythrocyte distribution width (RBC) [Ratio] 20.1 % High 11.6-14.6 [facility] Comment on above: Result Comment: DR. FLORES ORDERED CBCD Performed By: #### L 501.0900, L501.5200, L500.3600, L100.0500 ####[facility] [address] [place], [address] Hematocrit (Bld) [Volume fraction] 28.2 % Low 37-47 [facility] Comment on above: Result Comment: DR. FLORES ORDERED CBCD Performed By: #### L 501.0900, L501.5200, L500.3600, L100.0500 ####[facility] [address] [place], [address] Hemoglobin (Bld) [Mass/Vol] 9.0 g/dL Low 12.0-15.0 [facility] Comment on above: Result Comment: DR. FLORES ORDERED CBCD Performed By: #### L 501.0900, L501.5200, L500.3600, L100.0500 ####[facility] [address] [place], [address] MCH (RBC) [Entitic mass] 28.1 pg Normal 27.0-32.0 [facility] Comment on above: Result Comment: DR. FLORES ORDERED CBCD Performed By: #### L 501.0900, L501.5200, L500.3600, L100.0500 ####[facility] [address] [place], [address] MCHC (RBC) [Mass/Vol] 31.9 g/dL Low 32-36 [facility] Comment on above: Result Comment: DR. FLORES ORDERED CBCD Performed By: #### L 501.0900, L501.5200, L500.3600, L100.0500 ####[facility] [address] [place], [address] MCV (RBC) [Entitic vol] 88.1 fL Normal 81-99 [facility] Comment on above: Result Comment: DR. FLORES ORDERED CBCD Performed By: #### L 501.0900, L501.5200, L500.3600, L100.0500 ####[facility] [address] [place], [address] Platelet mean volume (Bld) [Entitic vol] 9.8 fL Normal 6.2-12.0 [facility] Comment on above: Result Comment: DR. FLORES ORDERED CBCD Performed By: #### L 501.0900, L501.5200, L500.3600, L100.0500 ####[facility] [address] [place], [address] Platelets (Bld) [#/Vol] 214 10*3/uL Normal 150-450 [facility] Comment on above: Result Comment: DR. FLORES ORDERED CBCD Performed By: #### L 501.0900, L501.5200, L500.3600, L100.0500 ####[facility] [address] [place], [address] POSITIVE MORPH YES Abnormal [facility] Comment on above: Result Comment: DR. FLORES ORDERED CBCD Performed By: #### L 501.0900, L501.5200, L500.3600, L100.0500 ####[facility] [address] [place], [address] RBC (Bld) [#/Vol] 3.20 10*6/uL Low 4.2-5.4 [facility] Comment on above: Result Comment: DR. FLORES ORDERED CBCD Performed By: #### L 501.0900, L501.5200, L500.3600, L100.0500 ####[facility] [address] [place], [address] RDW SD 64.7 fl High 35.1-43.9 [facility] Comment on above: Result Comment: DR. FLORES ORDERED CBCD Performed By: #### L 501.0900, L501.5200, L500.3600, L100.0500 ####[facility] [address] [place], [address] WBC (Bld) [#/Vol] 8.9 10*3/uL Normal 4.4-11.0 [facility] Comment on above: Result Comment: DR. FLORES ORDERED CBCD Performed By: #### L 501.0900, L501.5200, L500.3600, L100.0500 ####[facility] [address] [place], [address] Calculated very low density lipoprotein (VLDL) cholesterol measurementOrdered By: Vincent Flores on 01-23-2025 Calculated very low density lipoprotein (VLDL) cholesterol measurement 10 mg/dL 5-40 [facility] Carbon dioxide, total [Moles /volume] in Central venous bloodOrdered By: Jeremy Mcgarry on 01-23-2025 CO2 [Moles/Vol] 23.7 mmol/L 21.0-32.0 [facility] Chloride assayOrdered By: Darío Mcgarry on 01-23-2025 Chloride [Moles/Vol] 91 mmol/L Low 98-108 [facility] Eosinophil percentageOrdered By: Vincent Flores on 01-23-2025 Eosinophils/100 WBC (Bld) 1.0 % 0-5 [facility] Erythrocyte distribution wid th ratioOrdered By: Vincent Flores on 01-23-2025 Erythrocyte distribution width (RBC) [Ratio] 20.2 % High 11.6-14.6 [facility] Erythrocyte distribution wid th standard deviationOrdered By: Vincent Flores on 01-23-2025 Erythrocyte distribution width (RBC) [Ratio] 65.1 fl High 35.1-43.9 [facility] Glomerular filtration rate ( GFR) estimation/1.73 sq m using serum, plasma, or whole bOrdered By: Jeremy Mcgarry on 01-23-2025 GFR/1.73 sq M.predicted among non-blacks MDRD (S/P/Bld) [Vol rate/Area] 25 mL/min/{1.73_m2} Low >60 [facility] Comment on above: mL/min/1.73m2 CKD-EP I Creatinine Equation (2020) Hematocrit Auto (Bld) [Volum e fraction]Ordered By: Vincent Flores on 01-23-2025 Hematocrit (Bld) [Volume fraction] 28.4 % Low 37-47 [facility] Hemoglobin measurementOrdere d By: Vincent Flores on 01-23-2025 Hemoglobin (Bld) [Mass/Vol] 9.4 g/dL Low 12.0-15.0 [facility] Hepatitis C Antibodyon 01-23 Hepatitis C Ab Non-Reactive Normal Nonreactive [facility] Comment on above: Result Comment: Reac tive: Presumptive evidence of antibodies to HCV. [facility] for supplemental testing.Non-Reactive: Antibodies to HCV were not detected; does notexclude the possibility of exposure to HCVReactive Results are presumptive evidence of antibodies toHCV. Follow CDC recommendations for supplemental testing.Order confirmation testing: HCV Quant by PCR testing -HCVPCR #[id number] Non Reactive: < 0.8 Equivocal: >/= 0.8 to < 1.0 Reactive: >/= 1.0The CDC requires that a reactive/equivocal HCV antibodyresult be sent out for confirmation. HCV Quant by PCRtesting. Performed By: #### L 501.4100, L3890.6301, L501.4600, L100.0100, L501.9520, L001.0705, L501.2300, L501.4305, L501.4405, L500.4100, L506.1001 ####[facility] [address] [place], [place], [id number] Hypochromatic red blood cell detectionOrdered By: Vincent Flores on 01-23-2025 Hypochromia Ql (Bld) 3+ [facility] Immature granulocytes/100 WB C Auto (Bld)Ordered By: Vincent Flores on 01-23-2025 Immature granulocytes/100 WBC (Bld) 0.300 % 0.0-0.9 [facility] Comment on above: IG% - Immature Granu locytes (promyelocytes, myelocytes and metamyelocytes) > 1% indicates that a LEFT SHIFT is Present. LDL calc ser/plasOrdered By: Vincent Flores on 01-23-2025 Cholesterol in LDL [Mass/Vol] 25 mg/dL [facility] Comment on above: Kyjvwtckpt=474-482 m g/dL & Higher Cpdn=368 mg/dL or greater Laboratory - Chemistry and C hemistry - challengeOrdered By: Vincent Flores on 01-23-2025 AST [Catalytic activity/Vol] 24 U/L <32 [facility] Laboratory - Hematology and Cell countsOrdered By: Vincent Flores on 01-23-2025 Anisocytosis Ql (Bld) 2+ [facility] Lipid Profileon 01-23-2025 CHOL:HDL 2.00 Normal [facility] Comment on above: Performed By: #### L 501.4100, L3890.6301, L501.4600, L100.0100, L501.9520, L001.0705, L501.2300, L501.4305, L501.4405, L500.4100, L506.1001 ####[facility] [address] [place], [place], [id number] Cholesterol [Mass/Vol] 72 mg/dL Normal <=200 [facility] Comment on above: Result Comment: Chol esterol level, Desirable <200 mg/dLBorderline high cholesterol 200-239 mg/dLHigh cholesterol >=240 mg/dLRecommendations of the NCEP Adult Treatment Panel for thefollowing risk-cutoff thresholds for the [place] Americanpulation. Performed By: #### L 501.4100, L3890.6301, L501.4600, L100.0100, L501.9520, L001.0705, L501.2300, L501.4305, L501.4405, L500.4100, L506.1001 ####[facility] [address] [place], [address] Cholesterol in HDL [Mass/Vol] 36 mg/dL Low [facility] Comment on above: Result Comment: Ligia onal Cholesterol Education Program (NCEP) guidelines:<40 mg/dL: Low HDL-cholesterol (major risk factor for CHD)>= 60 mg/dL: High HDL-cholesterol (negative risk factor forCHD)HDL-cholesterol is affected by a number of factors, e.g.smoking, exercise, hormones, sex and age. Performed By: #### L 501.4100, L3890.6301, L501.4600, L100.0100, L501.9520, L001.0705, L501.2300, L501.4305, L501.4405, L500.4100, L506.1001 ####[facility] [address] [place], [address] Cholesterol in LDL [Mass/Vol] 25 mg/dL Normal [facility] Comment on above: Result Comment: Bord ufnzpq=838-514 mg/dL Higher Fjcj=522 mg/dL or greater Performed By: #### L 501.4100, L3890.6301, L501.4600, L100.0100, L501.9520, L001.0705, L501.2300, L501.4305, L501.4405, L500.4100, L506.1001 ####[facility] [address] [place], [address] Cholesterol in VLDL [Mass/Vol] 10 mg/dL Normal 5-40 [facility] Comment on above: Performed By: #### L 501.4100, L3890.6301, L501.4600, L100.0100, L501.9520, L001.0705, L501.2300, L501.4305, L501.4405, L500.4100, L506.1001 ####[facility] [address] [place], [place], [phone] Triglyceride [Mass/Vol] 52 mg/dL Normal [facility] Comment on above: Result Comment: The drugs N-Acetylcysteine and Metamizole may falselydepress this assay.Normal range: <150 mg/dLBorderline High: 150-199 mg/dLHigh: 200-499 mg/dLVery High: >500 mg/dL Performed By: #### L 501.4100, L3890.6301, L501.4600, L100.0100, L501.9520, L001.0705, L501.2300, L501.4305, L501.4405, L500.4100, L506.1001 ####[facility] [address] [place], [place], [address] MCV (mean corpuscular volume ) determinationOrdered By: Vincent Flores on 01-23-2025 MCV (RBC) [Entitic vol] 87.7 fL 81-99 [facility] Magnesiumon 01-23-2025 Magnesium [Mass/Vol] 2.0 mg/dL Normal 1.5-2.2 [facility] Comment on above: Order Comment: DR. Bruce LACEY ORDERED CBCDPLEASE CC COPY OF RENAL AND MG TO DR. FLORES Performed By: #### L 501.0900, L501.5200, L500.3600, L100.0500 ####[facility] [address] [place], [place], [address] Magnesium measurement (mass/ volume)Ordered By: Jeremy Mcgarry on 01-23-2025 Magnesium (Unsp spec) [Mass/Vol] 2.0 mg/dL 1.5-2.2 [facility] Mean corpuscular hemoglobin (MCH) determinationOrdered By: Vincent Flores on 01-23-2025 MCH (RBC) [Entitic mass] 29.0 pg 27.0-32.0 [facility] Mean corpuscular hemoglobin concentration (MCHC) determinationOrdered By: Vincent Flores on 01-23-2025 MCHC (RBC) [Mass/Vol] 33.1 g/dL 32-36 [facility] Mean platelet volume determi nationOrdered By: Vincent Flores on 01-23-2025 Platelet mean volume (Bld) [Entitic vol] 9.9 fL 6.2-12.0 [facility] Monocyte percentageOrdered B y: Vincent Flores on 01-23-2025 Monocytes/100 WBC (Bld) 15.6 % High 0-10 [facility] Neutrophil percentageOrdered By: Vincent Flores on 01-23-2025 Neutrophils/100 WBC (Bld) 65.5 % 47-70 [facility] No Panel InformationOrdered By: Vincent Flores on 01-23-2025 2+ [facility] 24 U/L <32 [facility] Nucleated red blood cell per centageOrdered By: Vincent Flores on 01-23-2025 Nucleated RBC/100 WBC (Bld) [Ratio] 0 % 0-5 [facility] Phosphoruson 01-23-2025 Phosphate [Mass/Vol] 3.1 mg/dL Normal 2.7-4.5 [facility] Comment on above: Performed By: #### L 501.4100, L3890.6301, L501.4600, L100.0100, L501.9520, L001.0705, L501.2300, L501.4305, L501.4405, L500.4100, L506.1001 ####[facility] [address] [place], [address] Platelet countOrdered By: Ishmael Flores on 01-23-2025 Platelets (Bld) [#/Vol] 224 10*3/uL 150-450 [facility] Platelet estimateOrdered By: Vincent Flores on 01-23-2025 Platelets LM Ql (Bld) ADEQUATE ADEQ [facility] Potassium measurement (mass/ volume)Ordered By: Jeremy Mcgarry on 01-23-2025 Potassium (Unsp spec) [Mass/Vol] 3.8 mmol/L 3.3-5.1 [facility] Protein+Creatinine Ratio,Uri neon 01-23-2025 PROT:CRE RATIO 477 mg/g CRE High 0-200 [facility] Comment on above: Performed By: #### L 501.0900, L501.5200, L500.3600, L100.0500 ####[facility] [address] [place], [address] Protein (U) [Mass/Vol] 32.2 mg/dL High 0.0-12.0 [facility] Comment on above: Performed By: #### L 501.0900, L501.5200, L500.3600, L100.0500 ####[facility] [address] [place], [address] UR CREAT 67.50 mg/dL Normal 28.00-217.00 [facility] Comment on above: Performed By: #### L 501.0900, L501.5200, L500.3600, L100.0500 ####[facility] [address] [place], [address] Protein, Totalon 01-23-2025 T PROT 7.4 g/dL Normal 5.9-8.4 [facility] Comment on above: Performed By: #### L 501.4100, L3890.6301, L501.4600, L100.0100, L501.9520, L001.0705, L501.2300, L501.4305, L501.4405, L500.4100, L506.1001 ####[facility] [address] [place], [address] RBC Auto (Bld) [#/Vol]Ordere d By: Vincent Flores on 01-23-2025 RBC (Bld) [#/Vol] 3.24 10*6/uL Low 4.2-5.4 [facility] Random urine creatinine bijan urement (mass/volume)Ordered By: Jeremy Mcgarry on 01-23-2025 Creatinine Unsp time (U) [Mass/Vol] 67.50 mg/dL 28.00-217.00 [facility] Renal Profileon 01-23-2025 Albumin [Mass/Vol] 4.0 g/dL Normal 3.4-4.8 [facility] Comment on above: Order Comment: DR. Bruce LACEY ORDERED CBCDPLEASE CC COPY OF RENAL AND MG TO DR. FLORES Performed By: #### L 501.0900, L501.5200, L500.3600, L100.0500 ####[facility] [address] [place], [address] BUN/CRE 29.1 RATIO High 10-20 [facility] Comment on above: Order Comment: DR. Bruce LACEY ORDERED CBCDPLEASE CC COPY OF RENAL AND MG TO DR. FLORES Performed By: #### L 501.0900, L501.5200, L500.3600, L100.0500 ####[facility] [address] [place], [address] Calcium [Mass/Vol] 9.5 mg/dL Normal 7.6-11.0 [facility] Comment on above: Order Comment: DR. Bruce LACEY ORDERED CBCDPLEASE CC COPY OF RENAL AND MG TO DR. FLORES Performed By: #### L 501.0900, L501.5200, L500.3600, L100.0500 ####[facility] [address] [place], [address] Chloride [Moles/Vol] 91 mmol/L Low 98-108 [facility] Comment on above: Order Comment: DR. Bruce LACEY ORDERED CBCDPLEASE CC COPY OF RENAL AND MG TO DR. FLORES Performed By: #### L 501.0900, L501.5200, L500.3600, L100.0500 ####[facility] [address] [place], [address] CO2 [Moles/Vol] 23.7 mmol/L Normal 21.0-32.0 [facility] Comment on above: Order Comment: DR. Bruce LACEY ORDERED CBCDPLEASE CC COPY OF RENAL AND MG TO DR. FLORES Performed By: #### L 501.0900, L501.5200, L500.3600, L100.0500 ####[facility] [address] [place], [address] Creatinine [Mass/Vol] 1.97 mg/dL High 0.70-1.20 [facility] Comment on above: Order Comment: DR. Bruce LACEY ORDERED CBCDPLEASE CC COPY OF RENAL AND MG TO DR. FLORES Performed By: #### L 501.0900, L501.5200, L500.3600, L100.0500 ####[facility] [address] [place], [address] GAP 17 High 5-15 [facility] Comment on above: Order Comment: DR. Bruce LACEY ORDERED CBCDPLEASE CC COPY OF RENAL AND MG TO DR. FLORES Performed By: #### L 501.0900, L501.5200, L500.3600, L100.0500 ####[facility] [address] [place], [address] GFR/1.73 sq M.predicted among non-blacks MDRD (S/P/Bld) [Vol rate/Area] 25 mL/min/{1.73_m2} Low >60 [facility] Comment on above: Order Comment: DR. Bruce LACEY ORDERED CBCDPLEASE CC COPY OF RENAL AND MG TO DR. FLORES Result Comment: mL/m in/1.73m2 CKD-EPI Creatinine Equation (2020) Performed By: #### L 501.0900, L501.5200, L500.3600, L100.0500 ####[facility] [address] [place], [address] Glucose [Mass/Vol] 105 mg/dL High 70-99 [facility] Comment on above: Order Comment: DR. Bruce LACEY ORDERED CBCDPLEASE CC COPY OF RENAL AND MG TO DR. FLORES Performed By: #### L 501.0900, L501.5200, L500.3600, L100.0500 ####[facility] [address] [place], [address] Phosphate [Mass/Vol] 3.1 mg/dL Normal 2.7-4.5 [facility] Comment on above: Order Comment: DR. Bruce LACEY ORDERED CBCDPLEASE CC COPY OF RENAL AND MG TO DR. FLORES Performed By: #### L 501.0900, L501.5200, L500.3600, L100.0500 ####[facility] [address] [place], [address] Potassium [Moles/Vol] 3.8 mmol/L Normal 3.3-5.1 [facility] Comment on above: Order Comment: DR. Bruce LACEY ORDERED CBCDPLEASE CC COPY OF RENAL AND MG TO DR. FLORES Performed By: #### L 501.0900, L501.5200, L500.3600, L100.0500 ####[facility] [address] [place], [address] Sodium [Moles/Vol] 131 mmol/L Low 133-145 [facility] Comment on above: Order Comment: DR. Bruce LACEY ORDERED CBCDPLEASE CC COPY OF RENAL AND MG TO DR. FLORES Performed By: #### L 501.0900, L501.5200, L500.3600, L100.0500 ####[facility] [address] [place], [address] Urea nitrogen [Mass/Vol] 57 mg/dL High 4-19 [facility] Comment on above: Order Comment: DR. Bruce LACEY ORDERED CBCDPLEASE CC COPY OF RENAL AND MG TO DR. FLORES Performed By: #### L 501.0900, L501.5200, L500.3600, L100.0500 ####[facility] [address] [place], [address] Screening total cholesterol/ high density lipoprotein (HDL) cholesterol ratioOrdered By: Vincent Flores on 01-23-2025 Cholesterol.total/Gin sterol in HDL [Mass ratio] 2.00 {ratio} [facility] Serum creatinine measurement (mass/volume)Ordered By: Jeremy Mcgarry on 01-23-2025 Creatinine [Mass/Vol] 1.97 mg/dL High 0.70-1.20 [facility] Serum glucose measurement (m ass/volume)Ordered By: Jeremy Mcgarry on 01-23-2025 Glucose [Mass/Vol] 105 mg/dL High 70-99 [facility] Serum or plasma alanine craven otransferase (ALT) measurementOrdered By: Vincent Flores on 01-23-2025 ALT [Catalytic activity/Vol] 11 U/L <35 [facility] Serum or plasma albumin bijan urement (mass/volume)Ordered By: Jeremy Mcgarry on 01-23-2025 Albumin [Mass/Vol] 4.0 g/dL 3.4-4.8 [facility] Serum or plasma alkaline da sphatase measurementOrdered By: Vincent Flores on 01-23-2025 ALP [Catalytic activity/Vol] 126 U/L High 35-104 [facility] Serum or plasma calcium bijan urement (mass/volume)Ordered By: Jeremy Mcgarry on 01-23-2025 Calcium [Mass/Vol] 9.5 mg/dL 7.6-11.0 [facility] Serum or plasma cholesterol in HDL measurement (mass/volume)Ordered By: Vincent Flores on 01-23-2025 Cholesterol in HDL [Mass/Vol] 36 mg/dL Low >40 [facility] Comment on above: National Cholesterol Education Program (NCEP) guidelines:<40 mg/dL: Low HDL-cholesterol (major risk factor for CHD)>= 60 mg/dL: High HDL-cholesterol (negative risk factor for CHD)HDL-cholesterol is affected by a number of factors, e.g. smoking, exercise, hormones, sex and age. Serum or plasma cholesterol measurement (mass/volume)Ordered By: Vincent Flores on 01-23-2025 Cholesterol [Mass/Vol] 72 mg/dL <201 [facility] Comment on above: Cholesterol level, D esirable <200 mg/dLBorderline high cholesterol 200-239 mg/dLHigh cholesterol >=240 mg/dLRecommendations of the NCEP Adult Treatment Panel for the following risk-cutoff thresholds for the [place] population. Serum or plasma urea nitroge n measurement (mass/volume)Ordered By: Jeremy Mcgarry on 01-23-2025 Urea nitrogen [Mass/Vol] 57 mg/dL High 4-19 [facility] Sodium levelOrdered By: Alvaro Mcgarry on 01-23-2025 Sodium [Moles/Vol] 131 mmol/L Low 133-145 [facility] TSH DL <= 0.005 mIU/L QnOrde red By: Vincent Flores on 01-23-2025 TSH Qn 6.900 uIU/mL High 0.300-4.200 [facility] Thyroid Stim Hormone (TSH)on 01-23-2025 TSH 6.900 uIU/mL High 0.300-4.200 [facility] Comment on above: Performed By: #### L 501.4100, L3890.6301, L501.4600, L100.0100, L501.9520, L001.0705, L501.2300, L501.4305, L501.4405, L500.4100, L506.1001 ####[facility] [address] [place], [place], [id number] Total Bilirubinon 01-23-2025 Bilirubin [Mass/Vol] 1.15 mg/dL Normal 0.00-1.30 [facility] Comment on above: Performed By: #### L 501.4100, L3890.6301, L501.4600, L100.0100, L501.9520, L001.0705, L501.2300, L501.4305, L501.4405, L500.4100, L506.1001 ####[facility] [address] [place], [place], [id number] Total proteinOrdered By: Vincent Flores on 01-23-2025 Protein [Mass/Vol] 7.4 g/dL 5.9-8.4 [facility] Triglycerides measurementOrd ered By: Vincent Flores on 01-23-2025 Triglyceride [Mass/Vol] 52 mg/dL <199 [facility] Comment on above: The drugs N-Acetylcy steine and Metamizole may falsely depress this assay. Normal range: <150 mg/dLBorderline High: 150-199 mg/dLHigh: 200-499 mg/dLVery High: >500 mg/dL Urine protein measurement (m ass/volume)Ordered By: Jeremy Mcgarry on 01-23-2025 Protein (U) [Mass/Vol] 32.2 mg/dL High 0.0-12.0 [facility] Urine protein/creatinine mas s ratioOrdered By: Jeremy Mcgarry on 01-23-2025 Protein/Creatinine (U) [Mass ratio] 477 mg/g CRE High 0-200 [facility] Vitamin D,25 Hydroxyon 01-23 Vitamin D 25-OH 34.9 ng/mL Normal 30-100 [facility] Comment on above: Result Comment: Haydee min D StatusDeficiency: <20 ng/mL (50nmol/L)Insufficiency: 20-30 ng/mL (50-75 nmol/L)Sufficiency: 30-100 ng/mL (75-250 nmol/L)Toxicity: >100 ng/mL (>250 nmol/L) Performed By: #### L 501.4100, L3890.6301, L501.4600, L100.0100, L501.9520, L001.0705, L501.2300, L501.4305, L501.4405, L500.4100, L506.1001 ####[facility] [address] [place], [address] White blood cell (WBC) count Ordered By: Vincent Flores on 01-23-2025 WBC (Bld) [#/Vol] 9.3 10*3/uL 4.4-11.0 [facility] Anion gap in Serum or Plasma Ordered By: Dianne Stovall on 01-11-2025 Anion gap [Moles/Vol] 13 mmol/L 5-15 [facility] BUN/creatinine ratioOrdered By: Dianne Stovall on 01-11-2025 Urea nitrogen/Creatinine [Mass ratio] 20.6 mg/mg High 04-23 [facility] Basic Metabolic Profile (BMP )on 01-11-2025 BUN/CRE 20.6 RATIO High 04-23 [facility] Comment on above: Performed By: #### L 500.2500 ####[facility] [address] [place], [address] Calcium [Mass/Vol] 9.0 mg/dL Normal 7.6-11.0 [facility] Comment on above: Performed By: #### L 500.2500 ####[facility] [address] [place], [address] Chloride [Moles/Vol] 95 mmol/L Low 98-108 [facility] Comment on above: Performed By: #### L 500.2500 ####[facility] [address] [place], [address] CO2 [Moles/Vol] 25.5 mmol/L Normal 21.0-32.0 [facility] Comment on above: Performed By: #### L 500.2500 ####[facility] [address] [place], [address] Creatinine [Mass/Vol] 1.97 mg/dL High 0.70-1.20 [facility] Comment on above: Performed By: #### L 500.2500 ####[facility] [address] [place], [address] ECRCL 21.99 ml/min Low 50-250 [facility] Comment on above: Performed By: #### L 500.2500 ####[facility] [address] [place], [address] GAP 13 Normal 5-15 [facility] Comment on above: Performed By: #### L 500.2500 ####[facility] [address] [place], [address] GFR/1.73 sq M.predicted among non-blacks MDRD (S/P/Bld) [Vol rate/Area] 25 mL/min/{1.73_m2} Low >60 [facility] Comment on above: Result Comment: mL/m in/1.73m2 CKD-EPI Creatinine Equation (2020) Performed By: #### L 500.2500 ####[facility] [address] [place], [address] Glucose [Mass/Vol] 117 mg/dL High 70-99 [facility] Comment on above: Performed By: #### L 500.2500 ####[facility] [address] [place], [address] Potassium [Moles/Vol] 4.4 mmol/L Normal 3.3-5.1 [facility] Comment on above: Performed By: #### L 500.2500 ####[facility] [address] [place], [address] Sodium [Moles/Vol] 134 mmol/L Normal 133-145 [facility] Comment on above: Performed By: #### L 500.2500 ####[facility] [address] [place], [address] Urea nitrogen [Mass/Vol] 41 mg/dL High 4-19 [facility] Comment on above: Performed By: #### L 500.2500 ####[facility] [address] [place], [address] Bedside Glucoseon 01-11-2025 FINGERSTICK GLU 116 mg/dL High 74-106 [facility] Comment on above: Result Comment: JOHNSON MCCORMACK OF PATIENT CARE PER NURSING PROTOCOL Performed By: #### L 501.080 ####[facility] [address] [place], [address] Carbon dioxide, total [Moles /volume] in Central venous bloodOrdered By: Dianne Stovall on 01-11-2025 CO2 [Moles/Vol] 25.5 mmol/L 21.0-32.0 [facility] Chloride assayOrdered By: Beryl Stovall on 01-11-2025 Chloride [Moles/Vol] 95 mmol/L Low 98-108 [facility] Discharge Instructionon 01-02 Discharge Instruction Normal [facility] Glomerular filtration rate ( GFR) estimation/1.73 sq m using serum, plasma, or whole bOrdered By: Dianne Stovall on 01-11-2025 GFR/1.73 sq M.predicted among non-blacks MDRD (S/P/Bld) [Vol rate/Area] 25 mL/min/{1.73_m2} Low >60 [facility] Comment on above: mL/min/1.73m2 CKD-EP I Creatinine Equation (2020) [facility] deOrdered By: Dianne Stovall on 01-11-2025 Glucose [Mass/Vol] 116 mg/dL High 74-106 [facility] Comment on above: MANAGEMENT OF PATIEN T CARE PER NURSING PROTOCOL Potassium measurement (mass/ volume)Ordered By: Dianne Stovall on 01-11-2025 Potassium (Unsp spec) [Mass/Vol] 4.4 mmol/L 3.3-5.1 [facility] Serum creatinine measurement (mass/volume)Ordered By: Dianne Stovall on 01-11-2025 Creatinine [Mass/Vol] 1.97 mg/dL High 0.70-1.20 [facility] Serum glucose measurement (m ass/volume)Ordered By: Dianne Stovall on 01-11-2025 Glucose [Mass/Vol] 117 mg/dL High 70-99 [facility] Serum or plasma calcium bijan urement (mass/volume)Ordered By: Dianne Stovall on 01-11-2025 Calcium [Mass/Vol] 9.0 mg/dL 7.6-11.0 [facility] Serum or plasma urea nitroge n measurement (mass/volume)Ordered By: Dianne Stovall on 01-11-2025 Urea nitrogen [Mass/Vol] 41 mg/dL High 4-19 [facility] Sodium levelOrdered By: Dianne Stovall on 01-11-2025 Sodium [Moles/Vol] 134 mmol/L 133-145 [facility] Bedside Glucoseon 01-10-2025 FINGERSTICK GLU 126 mg/dL High 74-106 [facility] Comment on above: Result Comment: JOHNSON MCCORMACK OF PATIENT CARE PER NURSING PROTOCOL Performed By: #### L 501.080 ####[facility] [address] [place], [address] FINGERSTICK GLU 133 mg/dL High 74-106 [facility] Comment on above: Result Comment: JOHNSON GEMENT OF PATIENT CARE PER NURSING PROTOCOL Performed By: #### L 501.080 ####[facility] [address] [place], [address] FINGERSTICK GLU 134 mg/dL High 74-106 [facility] Comment on above: Result Comment: JOHNSON GEMENT OF PATIENT CARE PER NURSING PROTOCOL Performed By: #### L 501.080 ####[facility] [address] [place], [address] Basic Metabolic Profile (BMP )on 01-09-2025 BUN/CRE 23.6 RATIO High 10-20 [facility] Comment on above: Performed By: #### L 500.2500 ####[facility] [address] [place], [address] Calcium [Mass/Vol] 8.9 mg/dL Normal 7.6-11.0 [facility] Comment on above: Performed By: #### L 500.2500 ####[facility] [address] [place], [address] Chloride [Moles/Vol] 95 mmol/L Low 98-108 [facility] Comment on above: Performed By: #### L 500.2500 ####[facility] [address] [place], [address] CO2 [Moles/Vol] 24.5 mmol/L Normal 21.0-32.0 [facility] Comment on above: Performed By: #### L 500.2500 ####[facility] [address] [place], [address] Creatinine [Mass/Vol] 1.85 mg/dL High 0.70-1.20 [facility] Comment on above: Performed By: #### L 500.2500 ####[facility] [address] [place], [address] ECRCL 23.14 ml/min Low 50-250 [facility] Comment on above: Performed By: #### L 500.2500 ####[facility] [address] [place], [address] GAP 13 Normal 5-15 [facility] Comment on above: Performed By: #### L 500.2500 ####[facility] [address] [place], [address] GFR/1.73 sq M.predicted among non-blacks MDRD (S/P/Bld) [Vol rate/Area] 27 mL/min/{1.73_m2} Low >60 [facility] Comment on above: Result Comment: mL/m in/1.73m2 CKD-EPI Creatinine Equation (2020) Performed By: #### L 500.2500 ####[facility] [address] [place], [address] Glucose [Mass/Vol] 135 mg/dL High 70-99 [facility] Comment on above: Performed By: #### L 500.2500 ####[facility] [address] [place], [address] Potassium [Moles/Vol] 4.5 mmol/L Normal 3.3-5.1 [facility] Comment on above: Performed By: #### L 500.2500 ####[facility] [address] [place], [address] Sodium [Moles/Vol] 133 mmol/L Normal 133-145 [facility] Comment on above: Performed By: #### L 500.2500 ####[facility] [address] [place], [address] Urea nitrogen [Mass/Vol] 44 mg/dL High 4-19 [facility] Comment on above: Performed By: #### L 500.2500 ####[facility] [address] [place], [address] Bedside Glucoseon 01-09-2025 FINGERSTICK GLU 111 mg/dL High 74-106 [facility] Comment on above: Result Comment: JOHNSON GEMENT OF PATIENT CARE PER NURSING PROTOCOL Performed By: #### L 501.080 ####[facility] [address] [place], [address] FINGERSTICK GLU 214 mg/dL High 74-106 [facility] Comment on above: Result Comment: JOHNSON GEMENT OF PATIENT CARE PER NURSING PROTOCOL Performed By: #### L 501.080 ####[facility] [address] [place], [address] FINGERSTICK GLU 132 mg/dL High 74-106 [facility] Comment on above: Result Comment: JOHNSON GEMENT OF PATIENT CARE PER NURSING PROTOCOL Performed By: #### L 501.080 ####[facility] [address] [place], [address] Absolute lymphocyte countOrd ered By: Radha Heller on 01-08-2025 Lymphocytes Auto (Unsp spec) [#/Vol] 2.11 10*3/uL 0.83-4.51 [facility] Absolute neutrophil countOrd ered By: Radha Heller on 01-08-2025 Neutrophils (Bld) [#/Vol] 3.0 10*3/uL 2.0-7.7 [facility] Automated lymphocyte count a s percentage of total leukocytesOrdered By: Radha Heller on 01-08-2025 Lymphocytes/100 WBC Auto (Unsp spec) 33.8 % 19-41 [facility] Basic Metabolic Profile (BMP )on 01-08-2025 BUN/CRE 24.9 RATIO High 10-20 [facility] Comment on above: Performed By: #### L 501.5200, L501.9520, L100.0100, L500.2500, L500.4100 ####[facility] [address] [place], [address] Calcium [Mass/Vol] 8.8 mg/dL Normal 7.6-11.0 [facility] Comment on above: Performed By: #### L 501.5200, L501.9520, L100.0100, L500.2500, L500.4100 ####[facility] [address] [place], [address] Chloride [Moles/Vol] 93 mmol/L Low 98-108 [facility] Comment on above: Performed By: #### L 501.5200, L501.9520, L100.0100, L500.2500, L500.4100 ####[facility] [address] [place], [address] CO2 [Moles/Vol] 25.7 mmol/L Normal 21.0-32.0 [facility] Comment on above: Performed By: #### L 501.5200, L501.9520, L100.0100, L500.2500, L500.4100 ####[facility] [address] [place], [address] Creatinine [Mass/Vol] 1.79 mg/dL High 0.70-1.20 [facility] Comment on above: Performed By: #### L 501.5200, L501.9520, L100.0100, L500.2500, L500.4100 ####[facility] [address] [place], [address] ECRCL 23.72 ml/min Low 50-250 [facility] Comment on above: Performed By: #### L 501.5200, L501.9520, L100.0100, L500.2500, L500.4100 ####[facility] [address] [place], [address] GAP 12 Normal 5-15 [facility] Comment on above: Performed By: #### L 501.5200, L501.9520, L100.0100, L500.2500, L500.4100 ####[facility] [address] [place], [address] GFR/1.73 sq M.predicted among non-blacks MDRD (S/P/Bld) [Vol rate/Area] 28 mL/min/{1.73_m2} Low >60 [facility] Comment on above: Result Comment: mL/m in/1.73m2 CKD-EPI Creatinine Equation (2020) Performed By: #### L 501.5200, L501.9520, L100.0100, L500.2500, L500.4100 ####[facility] [address] [place], [address] Glucose [Mass/Vol] 129 mg/dL High 70-99 [facility] Comment on above: Performed By: #### L 501.5200, L501.9520, L100.0100, L500.2500, L500.4100 ####[facility] [address] [place], [address] Potassium [Moles/Vol] 4.1 mmol/L Normal 3.3-5.1 [facility] Comment on above: Performed By: #### L 501.5200, L501.9520, L100.0100, L500.2500, L500.4100 ####[facility] [address] [place], [address] Sodium [Moles/Vol] 130 mmol/L Low 133-145 [facility] Comment on above: Performed By: #### L 501.5200, L501.9520, L100.0100, L500.2500, L500.4100 ####[facility] [address] [place], [address] Urea nitrogen [Mass/Vol] 45 mg/dL High 4-19 [facility] Comment on above: Performed By: #### L 501.5200, L501.9520, L100.0100, L500.2500, L500.4100 ####[facility] [address] [place], [address] Basophil percentageOrdered B y: Radha Heller on 01-08-2025 Basophils/100 WBC (Bld) 1.0 % 0-1 [facility] Bedside Glucoseon 01-08-2025 FINGERSTICK GLU 184 mg/dL High 74-106 [facility] Comment on above: Result Comment: JOHNSON GEMENT OF PATIENT CARE PER NURSING PROTOCOL Performed By: #### L 501.080 ####[facility] [address] [place], [address] FINGERSTICK GLU 136 mg/dL High 74-106 [facility] Comment on above: Result Comment: JOHNSON GEMENT OF PATIENT CARE PER NURSING PROTOCOL Performed By: #### L 501.080 ####[facility] [address] [place], [address] FINGERSTICK GLU 124 mg/dL High 74-106 [facility] Comment on above: Result Comment: JOHNSON GEMENT OF PATIENT CARE PER NURSING PROTOCOL Performed By: #### L 501.080 ####[facility] [address] [place], [address] Blood manual differential co mment interpretation (narrative result)Ordered By: Radha Heller on 01-08-2025 Manual differential comment Cristhian (Bld) [Interp] SCANNED [facility] CBC W/Diff, Automatedon RED CELL MORPH NORM C+C Normal NORM C C [facility] Comment on above: Performed By: #### L 501.5200, L501.9520, L100.0100, L500.2500, L500.4100 ####[facility] [address] [place], [address] PLT EST ADEQUATE Normal ADEQ [facility] Comment on above: Performed By: #### L 501.5200, L501.9520, L100.0100, L500.2500, L500.4100 ####[facility] [address] [place], [address] SMEAR COMMENT SCANNED Normal [facility] Comment on above: Performed By: #### L 501.5200, L501.9520, L100.0100, L500.2500, L500.4100 ####[facility] [address] [place], [address] Calculated very low density lipoprotein (VLDL) cholesterol measurementOrdered By: Radha Heller on 01-08-2025 Calculated very low density lipoprotein (VLDL) cholesterol measurement 14 mg/dL 5-40 [facility] Carotid Duplex Ultrasoundon 01-08-2025 Carotid Duplex Ultrasound Normal [facility] Consultation - Nephrologyon 01-08-2025 Consultation - Nephrology Normal [facility] Discharge Instructionon Discharge Instruction Normal [facility] Duplex ultrasound of carotid artery reportOrdered By: Abundio Turcios on 01-08-2025 Study report [facility] Cardi[facility] [address] [place] [address] Carotid Duplex Ultrasound 01/08/25 0841 MR#: [id number] Acct: [id number] Name: BERTA SANCHES Rep #:[id number] : 1945 79 From: Abundio Foreman Attending Dr: Dr. Dianne Stovall DO Status: [...] the left vertebral artery. Procedure Carotid Duplex 42485. This is a Carotid Duplex examination using [...] 1244 Date _ Abundio Turcios MD CC: BRAND STRATEGY MANAGERSammy Collazo; Dr. Carla Ha DO; Dr. 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 [address] Echo Complete 01/08/25 1058 MR#: [id number] Acct: [id number] Name: BERTA SANCHES Rep #:[id number] : 1945 79 From: Yaniv Foreman Attending Dr: Dr. 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 Dianne Stovall DO Status: ADM IN Ordering Dr: Sheree Simmons Date: 01/07/25 Location: [facility] Sex: F C Admitted: 01/07/25 Test Reason [...] ECG Confirmed by YANIV MASTERS MD ([id number]), publishing editor ROJELIO TADEO ([id number]) on 01/08/2025 11:01:47 AM Referred By: Confirmed By: YANIV MASTERS MD 01/08/25 1101 Date _ Yaniv Masters MD CC: BRAND STRATEGY MANAGER-Ivett Collazo; Dr. Dianne Stovall DO; FERNANDO Uriostegui ~ Signed [facility] Work Phone: Eosinophil percentageOrdered By: Radha Heller on 01-08-2025 Eosinophils/100 WBC (Bld) 2.1 % 0-5 [facility] Erythrocyte distribution wid th ratioOrdered By: Radha Heller on 01-08-2025 Erythrocyte distribution width (RBC) [Ratio] 19.8 % High 11.6-14.6 [facility] Erythrocyte distribution wid th standard deviationOrdered By: Radha Heller on 01-08-2025 Erythrocyte distribution width (RBC) [Ratio] 64.7 fl High 35.1-43.9 [facility] Erythrocyte morphology asses smentOrdered By: Radha Heller on 01-08-2025 RBC morphology finding Nom (Bld) NORM C+C NORMAL NORM C&C [facility] Hematocrit Auto (Bld) [Volum e fraction]Ordered By: Radha Heller on 01-08-2025 Hematocrit (Bld) [Volume fraction] 28.4 % Low 37-47 [facility] Hemoglobin A1con 01-08-2025 HbA1c (Bld) [Mass fraction] 7.0 % High <=5.6 [facility] Comment on above: Result Comment: Norm al < 5.7 % Prediabetic 5.7 - 6.4 % Diabetic >or= 6.5 % Please note range changes. Performed By: #### L 501.9927 ####[facility] [address] [place], [address] Hemoglobin A1c percentageOrd ered By: Carla Barksdale on 01-08-2025 HbA1c (Bld) [Mass fraction] 7.0 % High <5.7 [facility] Comment on above: Normal < 5.7 % Predi abetic 5.7 - 6.4 % Diabetic >or= 6.5 % Please note range changes. Hemoglobin measurementOrdere d By: Radha Heller on 01-08-2025 Hemoglobin (Bld) [Mass/Vol] 9.0 g/dL Low 12.0-15.0 [facility] Immature granulocytes/100 WB C Auto (Bld)Ordered By: Radha Heller on 01-08-2025 Immature granulocytes/100 WBC (Bld) 0.300 % 0.0-0.9 [facility] Comment on above: IG% - Immature Granu locytes (promyelocytes, myelocytes and metamyelocytes) > 1% indicates that a LEFT SHIFT is Present. LDL calc ser/plasOrdered By: Radha Heller on 01-08-2025 Cholesterol in LDL [Mass/Vol] 26 mg/dL [facility] Comment on above: Fdrjqenmwe=499-287 m g/dL & Higher Kuvp=956 mg/dL or greater Lipid Profileon 01-08-2025 CHOL:HDL 2.38 Normal [facility] Comment on above: Performed By: #### L 501.5200, L501.9520, L100.0100, L500.2500, L500.4100 ####[facility] [address] [place], [place], [address] Cholesterol [Mass/Vol] 68 mg/dL Normal <=200 [facility] Comment on above: Result Comment: Chol esterol level, Desirable <200 mg/dLBorderline high cholesterol 200-239 mg/dLHigh cholesterol >=240 mg/dLRecommendations of the NCEP Adult Treatment Panel for thefollowing risk-cutoff thresholds for the [place] [facility]. Performed By: #### L 501.5200, L501.9520, L100.0100, L500.2500, L500.4100 ####[facility] [address] [place], [place], [address] Cholesterol in HDL [Mass/Vol] 29 mg/dL Low [facility] Comment on above: Result Comment: Ligia onal Cholesterol Education Program (NCEP) guidelines:<40 mg/dL: Low HDL-cholesterol (major risk factor for CHD)>= 60 mg/dL: High HDL-cholesterol (negative risk factor forCHD)HDL-cholesterol is affected by a number of factors, e.g.smoking, exercise, hormones, sex and age. Performed By: #### L 501.5200, L501.9520, L100.0100, L500.2500, L500.4100 ####[facility] [address] [place], [address] Cholesterol in LDL [Mass/Vol] 26 mg/dL Normal [facility] Comment on above: Result Comment: Bord jeojtl=879-801 mg/dL Higher Qgub=572 mg/dL or greater Performed By: #### L 501.5200, L501.9520, L100.0100, L500.2500, L500.4100 ####[facility] [address] [place], [address] Cholesterol in VLDL [Mass/Vol] 14 mg/dL Normal 5-40 [facility] Comment on above: Performed By: #### L 501.5200, L501.9520, L100.0100, L500.2500, L500.4100 ####[facility] [address] [place], [address] Triglyceride [Mass/Vol] 69 mg/dL Normal [facility] Comment on above: Result Comment: The drugs N-Acetylcysteine and Metamizole may falselydepress this assay.Normal range: <150 mg/dLBorderline High: 150-199 mg/dLHigh: 200-499 mg/dLVery High: >500 mg/dL Performed By: #### L 501.5200, L501.9520, L100.0100, L500.2500, L500.4100 ####[facility] [address] [place], [address] MCV (mean corpuscular volume ) determinationOrdered By: Radha Heller on 01-08-2025 MCV (RBC) [Entitic vol] 89.3 fL 81-99 [facility] Magnesiumon 01-08-2025 Magnesium [Mass/Vol] 2.4 mg/dL High 1.5-2.2 [facility] Comment on above: Performed By: #### L 501.5200, L501.9520, L100.0100, L500.2500, L500.4100 ####[facility] [address] [place], [place], [address] Magnesium measurement (mass/ volume)Ordered By: Radha Heller on 01-08-2025 Magnesium (Unsp spec) [Mass/Vol] 2.4 mg/dL High 1.5-2.2 [facility] Mean corpuscular hemoglobin (MCH) determinationOrdered By: Radha Heller on 01-08-2025 MCH (RBC) [Entitic mass] 28.3 pg 27.0-32.0 [facility] Mean corpuscular hemoglobin concentration (MCHC) determinationOrdered By: Radha Heller on 01-08-2025 MCHC (RBC) [Mass/Vol] 31.7 g/dL Low 32-36 [facility] Mean platelet volume determi nationOrdered By: Radha Heller on 01-08-2025 Platelet mean volume (Bld) [Entitic vol] 9.6 fL 6.2-12.0 [facility] Monocyte percentageOrdered B y: Radha Heller on 01-08-2025 Monocytes/100 WBC (Bld) 15.5 % High 0-10 [facility] Neutrophil percentageOrdered By: Radha Heller on 01-08-2025 Neutrophils/100 WBC (Bld) 47.3 % 47-70 [facility] Nucleated red blood cell per centageOrdered By: Radha Heller on 01-08-2025 Nucleated RBC/100 WBC (Bld) [Ratio] 0 % 0-5 [facility] Platelet countOrdered By: Fernando Heller on 01-08-2025 Platelets (Bld) [#/Vol] 155 10*3/uL 150-450 [facility] Platelet estimateOrdered By: Radha Heller on 01-08-2025 Platelets LM Ql (Bld) ADEQUATE ADEQ [facility] RBC Auto (Bld) [#/Vol]Ordere d By: Radha Heller on 01-08-2025 RBC (Bld) [#/Vol] 3.18 10*6/uL Low 4.2-5.4 [facility] Screening total cholesterol/ high density lipoprotein (HDL) cholesterol ratioOrdered By: Radha Heller on 01-08-2025 Cholesterol.total/Gin sterol in HDL [Mass ratio] 2.38 {ratio} [facility] Serum or plasma cholesterol in HDL measurement (mass/volume)Ordered By: Radha Heller on 01-08-2025 Cholesterol in HDL [Mass/Vol] 29 mg/dL Low >40 [facility] Comment on above: National Cholesterol Education Program (NCEP) guidelines:<40 mg/dL: Low HDL-cholesterol (major risk factor for CHD)>= 60 mg/dL: High HDL-cholesterol (negative risk factor for CHD)HDL-cholesterol is affected by a number of factors, e.g. smoking, exercise, hormones, sex and age. Serum or plasma cholesterol measurement (mass/volume)Ordered By: Radha Heller on 01-08-2025 Cholesterol [Mass/Vol] 68 mg/dL <201 [facility] Comment on above: Cholesterol level, D esirable <200 mg/dLBorderline high cholesterol 200-239 mg/dLHigh cholesterol >=240 mg/dLRecommendations of the NCEP Adult Treatment Panel for the following risk-cutoff thresholds for the [place] population. TSH DL <= 0.005 mIU/L QnOrde red By: Radha Heller on 01-08-2025 TSH Qn 4.850 uIU/mL High 0.300-4.200 [facility] Thyroid Stim Hormone (TSH)on 01-08-2025 TSH 4.850 uIU/mL High 0.300-4.200 [facility] Comment on above: Performed By: #### L 501.5200, L501.9520, L100.0100, L500.2500, L500.4100 ####[facility] [address] [place], [place], [address] Triglycerides measurementOrd ered By: Radha Heller on 01-08-2025 Triglyceride [Mass/Vol] 69 mg/dL <199 [facility] Comment on above: The drugs N-Acetylcy steine and Metamizole may falsely depress this assay. Normal range: <150 mg/dLBorderline High: 150-199 mg/dLHigh: 200-499 mg/dLVery High: >500 mg/dL White blood cell (WBC) count Ordered By: Radha Heller on 01-08-2025 WBC (Bld) [#/Vol] 6.3 10*3/uL 4.4-11.0 [facility] 12 Lead EKGon 01-07-2025 12 Lead EKG Normal [facility] Absolute lymphocyte countOrd ered By: ED PROVIDER on 01-07-2025 Lymphocytes Auto (Unsp spec) [#/Vol] 1.52 10*3/uL 0.83-4.51 [facility] Absolute neutrophil countOrd ered By: ED PROVIDER on 01-07-2025 Neutrophils (Bld) [#/Vol] 3.8 10*3/uL 2.0-7.7 [facility] Anion gap in Serum or Plasma Ordered By: ED PROVIDER on 01-07-2025 Anion gap [Moles/Vol] 15 mmol/L 11-16 [facility] Automated lymphocyte count a s percentage of total leukocytesOrdered By: ED PROVIDER on 01-07-2025 Lymphocytes/100 WBC Auto (Unsp spec) 24.2 % 19-41 [facility] BUN/creatinine ratioOrdered By: ED PROVIDER on 01-07-2025 Urea nitrogen/Creatinine [Mass ratio] 26.4 mg/mg High 10-20 [facility] Basic Metabolic Profile (BMP )on 01-07-2025 BUN/CRE 26.4 RATIO High 10- [facility] Comment on above: Performed By: #### L 500.2500, L100.0100 ####[facility] [address] [place], [address] ECRCL 24.26 ml/min Low 50-250 [facility] Comment on above: Performed By: #### L 500.2500, L100.0100 ####[facility] [address] [place], [address] GAP 15 Normal - [facility] Comment on above: Performed By: #### L 500.2500, L100.0100 ####[facility] [address] [place], [address] Potassium [Moles/Vol] 4.2 mmol/L Normal 3.3-5.1 [facility] Comment on above: Performed By: #### L 500.2500, L100.0100 ####[facility] [address] [place], [address] Basophil percentageOrdered B y: ED PROVIDER on 01-07-2025 Basophils/100 WBC (Bld) 1.0 % 0-1 [facility] Bedside Glucoseon 01-07-2025 FINGERSTICK GLU 166 mg/dL High 74-106 [facility] Comment on above: Result Comment: JOHNSON GEMENT OF PATIENT CARE PER NURSING PROTOCOL Performed By: #### L 501.080 ####[facility] [address] [place], [address] FINGERSTICK GLU 104 mg/dL Normal 74-106 [facility] Comment on above: Result Comment: JOHNSON GEMENT OF PATIENT CARE PER NURSING PROTOCOL Performed By: #### L 501.080 ####[facility] [address] [place], [address] CBC W/Diff, AutomatedOrdered By: ED PROVIDER on 01-07-2025 Anisocytosis Ql (Bld) 1+ Normal [facility] Comment on above: Performed By: #### L 500.2500, L100.0100 ####[facility] [address] [place], [address] Carbon dioxide, total [Moles /volume] in Central venous bloodOrdered By: ED PROVIDER on 01-07-2025 CO2 [Moles/Vol] 23.9 mmol/L Normal 21.0-32.0 [facility] Comment on above: Performed By: #### L 500.2500, L100.0100 ####[facility] [address] [place], [address] Chest PA and Lateralon 01-07 Chest PA and Lateral Normal [facility] Chloride assayOrdered By: ED PROVIDER on 01-07-2025 Chloride [Moles/Vol] 91 mmol/L Low 98-108 [facility] Comment on above: Performed By: #### L 500.2500, L100.0100 ####[facility] [address] [place], [place], [address] Echo Completeon 01-07-2025 Echo Complete Normal [facility] Emergency Department Summary on 01-07-2025 Emergency Department Summary Normal [facility] Eosinophil percentageOrdered By: ED PROVIDER on 01-07-2025 Eosinophils/100 WBC (Bld) 1.8 % 0-5 [facility] Erythrocyte distribution wid th ratioOrdered By: ED PROVIDER on 01-07-2025 Erythrocyte distribution width (RBC) [Ratio] 19.9 % High 11.6-14.6 [facility] Erythrocyte distribution wid th standard deviationOrdered By: ED PROVIDER on 01-07-2025 Erythrocyte distribution width (RBC) [Ratio] 65.6 fl High 35.1-43.9 [facility] Glomerular filtration rate ( GFR) estimation/1.73 sq m using serum, plasma, or whole bOrdered By: ED PROVIDER on 01-07-2025 GFR/1.73 sq M.predicted among non-blacks MDRD (S/P/Bld) [Vol rate/Area] 29 mL/min/{1.73_m2} Low >60 [facility] Comment on above: mL/min/1.73m2 CKD-EP I Creatinine Equation (2020) Result Comment: mL/m in/1.73m2 CKD-EPI Creatinine Equation (2020) Performed By: #### L 500.2500, L100.0100 ####[facility] [address] [place], [address] H AND P Exam - Hospitaliston 01-07-2025 H&P Exam - Hospitalist Normal [facility] Hematocrit Auto (Bld) [Volum e fraction]Ordered By: ED PROVIDER on 01-07-2025 Hematocrit (Bld) [Volume fraction] 29.6 % Low 37-47 [facility] Hemoglobin measurementOrdere d By: ED PROVIDER on 01-07-2025 Hemoglobin (Bld) [Mass/Vol] 9.4 g/dL Low 12.0-15.0 [facility] Immature granulocytes/100 WB C Auto (Bld)Ordered By: ED PROVIDER on 01-07-2025 Immature granulocytes/100 WBC (Bld) 0.300 % 0.0-0.9 [facility] Comment on above: IG% - Immature Granu locytes (promyelocytes, myelocytes and metamyelocytes) > 1% indicates that a LEFT SHIFT is Present. L499.0042on 01-07-2025 Trop T High Sen 68 ng/L Invalid Interpretation Code <=14 [facility] Comment on above: Result Comment: Crit ical Result(s) Called at: 01/07/2025-15:45 by: Francisco J Carrera.??Results read back by same. Performed By: #### L 499.0042 ####[facility] [address] [facility] [place], [address] L501.4021on 01-07-2025 Trop T High Sen 71 ng/L Invalid Interpretation Code <=14 [facility] Comment on above: Result Comment: Crit ical Result(s) Called at: 01/07/2025-13:48 by: Andreea.??Results read back by same. Performed By: #### L 501.4021, L503.7365 ####[facility] [address] [facility] [place], [address] L503.7505on 01-07-2025 Natriuretic peptide B (Bld) [Mass/Vol] 10180 pg/mL High <=1800 [facility] Comment on above: Result Comment: Hear t Failure Unlikely: < 300 pg/mLHeart Failure Likely< 50 Years: > 450 pg/mL50-75 Years: > 900 pg/mL>75 Years: > 1800 pg/mL Performed By: #### L 501.4021, L503.7505 ####[facility] [address] [facility] [place], [place], [address] MCV (mean corpuscular volume ) determinationOrdered By: ED PROVIDER on 01-07-2025 MCV (RBC) [Entitic vol] 90.0 fL 81-99 [facility] Mean corpuscular hemoglobin (MCH) determinationOrdered By: ED PROVIDER on 01-07-2025 MCH (RBC) [Entitic mass] 28.6 pg 27.0-32.0 [facility] Mean corpuscular hemoglobin concentration (MCHC) determinationOrdered By: ED PROVIDER on 01-07-2025 MCHC (RBC) [Mass/Vol] 31.8 g/dL Low 32-36 [facility] Mean platelet volume determi nationOrdered By: ED PROVIDER on 01-07-2025 Platelet mean volume (Bld) [Entitic vol] 9.6 fL 6.2-12.0 [facility] Monocyte percentageOrdered B y: ED PROVIDER on 01-07-2025 Monocytes/100 WBC (Bld) 12.9 % High 0-10 [facility] Natriuretic peptide.B prohor daria N-Terminal [Mass/volume] in Serum or PlasmaOrdered By: Sheree Simmons on 01-07-2025 Natriuretic peptide.B prohormone N-Terminal [Mass/Vol] 50473 pg/mL High <1800 [facility] Comment on above: Heart Failure Unlike ly: < 300 pg/mLHeart Failure Likely< 50 Years: > 450 pg/mL50-75 Years: > 900 pg/mL>75 Years: > 1800 pg/mL Neutrophil percentageOrdered By: ED PROVIDER on 01-07-2025 Neutrophils/100 WBC (Bld) 59.8 % 47-70 [facility] No Panel InformationOrdered By: ED PROVIDER on 01-07-2025 1+ [facility] Nucleated red blood cell per centageOrdered By: ED PROVIDER on 01-07-2025 Nucleated RBC/100 WBC (Bld) [Ratio] 0 % 0-5 [facility] Platelet countOrdered By: ED PROVIDER on 01-07-2025 Platelets (Bld) [#/Vol] 165 10*3/uL 150-450 [facility] Potassium measurement (mass/ volume)Ordered By: ED PROVIDER on 01-07-2025 Potassium (Unsp spec) [Mass/Vol] 4.2 mmol/L 3.3-5.1 [facility] RBC Auto (Bld) [#/Vol]Ordere d By: ED PROVIDER on 01-07-2025 RBC (Bld) [#/Vol] 3.29 10*6/uL Low 4.2-5.4 [facility] STROKE Brain/Head without Co nton 01-07-2025 STROKE Brain/Head without Cont Normal [facility] STROKE CTA Head AND Neck W/C onon 01-07-2025 STROKE CTA Head AND Neck W/Con Normal [facility] Serum creatinine measurement (mass/volume)Ordered By: ED PROVIDER on 01-07-2025 Creatinine [Mass/Vol] 1.77 mg/dL High 0.70-1.20 [facility] Comment on above: Performed By: #### L 500.2500, L100.0100 ####[facility] [address] [place], [address] Serum glucose measurement (m ass/volume)Ordered By: ED PROVIDER on 01-07-2025 Glucose [Mass/Vol] 194 mg/dL High 70-99 [facility] Comment on above: Performed By: #### L 500.2500, L100.0100 ####[facility] [address] [place], [address] Serum or plasma calcium bijan urement (mass/volume)Ordered By: ED PROVIDER on 01-07-2025 Calcium [Mass/Vol] 8.8 mg/dL Normal 7.6-11.0 [facility] Comment on above: Performed By: #### L 500.2500, L100.0100 ####[facility] [address] [place], [address] Serum or plasma urea nitroge n measurement (mass/volume)Ordered By: ED PROVIDER on 01-07-2025 Urea nitrogen [Mass/Vol] 47 mg/dL High 4-19 [facility] Comment on above: Performed By: #### L 500.2500, L100.0100 ####[facility] [address] [place], [address] Sodium levelOrdered By: ED Yue AUSTIN on 01-07-2025 Sodium [Moles/Vol] 129 mmol/L Low 133-145 [facility] Comment on above: Performed By: #### L 500.2500, L100.0100 ####[facility] [address] [place], [address] Troponin T.cardiac [Mass/vol ume] in Serum or Plasma by High sensitivity methodOrdered By: Sheree Simmons on 01-07-2025 Troponin T.cardiac High sensitivity method [Mass/Vol] 68 ng/L Critically high <14 [facility] Comment on above: Critical Result(s) C alled at: 01/07/2025-15:45 by: Tai Garcia to Jen Carrera. Results read back by same. Troponin T.cardiac High sensitivity method [Mass/Vol] 71 ng/L Critically high <14 [facility] Comment on above: Critical Result(s) C alled at: 01/07/2025-13:48 by: Danika Blanchard. Results read back by same. White blood cell (WBC) count Ordered By: ED PROVIDER on 01-07-2025 WBC (Bld) [#/Vol] 6.3 10*3/uL 4.4-11.0 [facility] CNOVon 01-01-2025 CNOV Office Visit (JOHNNY ) BERTA SANCHES ([id number]) 1945 [place] Date Time Provider Department 01/01/25 11:00 AM CARLA BURDICK During your visit today, we recorded the following information about you: Pulse Respiration Blood pressure Weight 84/minute 18/minute 156/60 67.4 kg Height 1.575 m Carla Burdick MD 01/01/2025 12:27 PM Signed [facility] SECTION OF REGIONAL CARDIOLOGY Cardiology ([facility]) [address] [facility] [id number] OUTPATIENT VISIT DATE 01/01/2025 PRIMARY CARE PHYSICIAN: Doreen Le [address] [place] [address] HISTORY OF PRESENT ILLNESS: Ms. Sanches is a 79 year old woman with a history of remote aortic valve replacement with homograft in 1996 and possible repair of the ascending aorta, chronic diastolic congestive heart failure, hypertension, dyslipidemia, atrial fibrillation with history of pulmonary vein isolation procedures, pacemaker placement and watchman procedure who presents for follow-up. Patient was admitted to [facility]. She was discharged after 2 days. 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 Lua PACEMAKER 10/2019 PART. HYSTERECTOMY W/WO RMVL OVARIES/TUBES 1973 h/o cervical cancer ovaries remain PAST SURGICAL HISTORY OF 1996 Aortic valve repair, Dr. Apodaca PAST SURGICAL HISTORY OF 2001 [address] Beltrán, [facility] PAST SURGICAL HISTORY OF 2015 clipping [...] and 1 (more content not included)... Normal [facility] Connie 12-26-2024 [facility] Telephone ([facility]) BERTA SANCHES ([id number]) 1945 F [place] Date Time Provider Department 12/26/24 ALBIN GU [facility] During your visit today, we [...] 02/26/2014 03/21/2022 Intracranial aneurysm [I67.1] 08/30/2015 10/05/2022 medical terminologist current use of antiarrhythmic medical*10/20/2016 09/12/2021 Prosthetic [...] anemia [D50.9] more content not included)... [facility] ) BERTA SANCHES ([id number]) 1945 F [place] Date Time Provider Department 12/20/24 8:45 AM LARS SILVA During your visit today, we recorded the following information about you: Pulse Blood pressure Weight 77/minute 154/75 67.4 kg Lars Silva, DO 12/20/2024 5:56 PM Signed [facility] [facility] OUTPATIENT VISIT DATE December 20, 2024 OUTPATIENT VISIT TYPE ESTABLISHED SERVICE DATE: 12/20/2024 SERVICE TIME: 8:53 AM PRIMARY CARE PHYSICIAN: Deysi Collazo APRN.BRANCH LEAD HISTORY OF PRESENT ILLNESS: Ms. Sanches is a 79 year old female who presents today for a vascular surgery follow-up visit follow up on mesenteric duplex. She recently increased her lasix at the CHF clinic. She had a stent placed in [place] in September. She was recently admitted to [facility] for anemia. She has noted increased swelling. 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 Lua PACEMAKER 10/2019 PART. HYSTERECTOMY W/WO RMVL OVARIES/TUBES 1974 h/o cervical cancer ovaries remain PAST SURGICAL HISTORY OF 1996 Aortic valve repair, Dr. Apodaca PAST SURGICAL HISTORY OF 2001 [address] Beltrán, [facility] PAST SURGICAL HISTORY OF 2015 clipping [...] blood sugar (more content not included)... Normal [facility] MESENTERIC ARTERY CMPLT V LABon 12-20-2024 MESENTERIC ARTERY CMPLT VAS LAB Non-Invasive Vascular Laboratory [facility] Renal or Mesenteric Duplex [...] Unable to visualize. Technologist: Chantell Ferrari RVT, [facility] Ordering physician: LARS SILVA Interpreting physician: Terrance Oseguera MD, BIJAN Final CC [employer] Image : [id number] See Link below for Image Normal [facility] CNOVon 12-19-2024 CN [facility] BERTA SANCHES ([id number]) 1945 F [facility] Date Time Provider Department 12/19/24 11:00 AM [facility] During your visit today, we recorded the following information about you: Pulse Blood pressure Weight 79/minute 157/54 65.3 kg Albin Gu APRN.BRANCH LEAD 12/19/2024 11:41 AM Addendum 40 mg intravenous [...] or concern, you can call me at [phone]. Albin Gu APRN.CNP 12/19/2024 11:45 AM Signed [facility] [place] [facility] OUTPATIENT VISIT DATE [...] and was worried about traveling home to [place] in a few days. Discussed with her taking lasix as it was prescribed. As her spironolactone was stopped, did advise patient restart this at 25 mg once a day for four days only. She was instructed to call office in a week to review symptoms. On 10/15, patient presented back to [facility] for gastrointestinal bleed. She had a colonoscopy [...] and entresto. The patient wished to leave [place] so she could return to [place]. Cardiology and Pulmonary agreed with discharge. Patient [...] lbs Hospital disch (more content not included)... [facility] 12-13-2024 [facility] Telephone ([facility]) BERTA SANCHES ([id number]) 1945 [facility] Date Time Provider Department 12/13/24 DEYSI COLLAZO [facility] During your visit today, we recorded the following information about you: Alex Gonzalez 12/13/2024 9:36 AM Signed Transitional Care Management (TCM) [facility] Monitoring Program Provider Action / FYI: N/A SUMMARY: Outreach type: INITIAL OUTREACH Discharge Network Status: In-Network Discharge Source of Patient: [facility] TCM Discharge Report Patient discharged from [facility] on December 12. Admitted for Acute on chronic diastolic CHF (congestive heart failure) ([facility]). Contact made with patient: No - next [...] 02/26/2014 03/21/2022 Intracranial aneurysm [I67.1] 08/30/2015 10/05/2022 long-term current use of antiarrhythmic medical*10/20/2016 09/12/2021 Prosthetic [...] [C64.9] 04 (more content not included)... Normal [facility] Basic metabolic 2000 panelon 12-12-2024 Anion gap [Moles/Vol] 12 mmol/L Normal 8-15 [facility] Comment on above: Order Comment: Speci men Type: BLOOD SPECIMEN Ordering Facility: [facility] Address: [address] [place] [address] Performed By: #### 1 91239, 14761-5 #### [facility] CLIA [id number] [address] [place] [address] [place] Calcium [Mass/Vol] 8.8 mg/dL Normal 8.5-10.2 [facility] Comment on above: Order Comment: Speci men Type: BLOOD SPECIMEN Ordering Facility: [facility] Address: [address] [place] [address] Performed By: #### 1 91239, 72427-9 #### [facility] CLIA [id number] [address] [place] [address] [place] Chloride [Moles/Vol] 96 mmol/L Low 98-107 [facility] Comment on above: Order Comment: Speci men Type: BLOOD SPECIMEN Ordering Facility: [facility] Address: [address] [place] [address] Performed By: #### 1 91239, 20002-7 #### [facility] CLIA [id number] [address] [place] [address] [place] CO2 [Moles/Vol] 26 mmol/L Normal 22-30 [facility] Comment on above: Order Comment: Speci men Type: BLOOD SPECIMEN Ordering Facility: [facility] Address: [address] [place] [address] Performed By: #### 1 91239, 03998-9 #### [facility] CLIA [id number] [address] [place] [address] [place] Creatinine [Mass/Vol] 1.69 mg/dL High 0.58-0.96 [facility] Comment on above: Order Comment: Speci men Type: BLOOD SPECIMEN Ordering Facility: [facility] Address: [address] [place] [address] Performed By: #### 1 91239, 60115-9 #### [facility] CLIA [id number] [address] Creatinine and Glomerular filtration rate.predicted panel (S/P/Bld) 31 mL/min/1.73m??? Low >=60 [facility] Comment on above: Order Comment: Speci men Type: BLOOD SPECIMEN Ordering Facility: [facility] Address: [address] [place] [address] Result Comment: Mira mated Glomerular Filtration Rate [...] actual GFR. Performed By: #### 1 9123-9, 81045-0 #### [facility] CLIA [id number] [address] [place] [address] [place] Glucose [Mass/Vol] 170 mg/dL High 74-99 [facility] Comment on above: Order Comment: Annie ricci Type: BLOOD SPECIMEN Ordering Facility: [facility] Address: [address] [place] [address] Result Comment: The [place] Diabetes [employer] (ADA) provides guidance for cutoff [...] Standards of Medical Care in Diabetes 2016, [place] [employer]. Diabetes Care. 2016.39(Suppl 1). Performed By: #### 1 9123-9, 81744-3 #### [facility] CLIA [id number] [address] [place] [id number] [place] Potassium [Moles/Vol] 4.1 mmol/L Normal 3.7-5.1 [facility] Comment on above: Order Comment: Annie ricci Type: BLOOD SPECIMEN Ordering Facility: [facility] Address: [address] [place] [id number] Performed By: #### 1 9123-9, 70097-9 #### [facility] CLIA [id number] [address] [place] Sodium [Moles/Vol] 134 mmol/L Low 136-144 [facility] Comment on above: Order Comment: Speci men Type: BLOOD SPECIMEN Ordering Facility: [facility] Address: [address] [place] [address] Performed By: #### 1 9123-9, 14259-7 #### [facility] CLIA [id number] [address] [place] [address] [place] Urea nitrogen [Mass/Vol] 47 mg/dL High 7-21 [facility] Comment on above: Order Comment: Speci men Type: BLOOD SPECIMEN Ordering Facility: [facility] Address: [address] [place] [address] Performed By: #### 1 9123-9, 76621-4 #### [facility] CLIA [id number] [address] [place] CBC panel Auto (Bld)on 12-12 Erythrocyte distribution width (RBC) [Ratio] 15.9 % High 11.5-15.0 [facility] Comment on above: Order Comment: Speci men Type: BLOOD SPECIMEN Ordering Facility: [facility] Address: [address] [place] [address] Performed By: #### 5 8410-2 #### [facility] CLIA [id number] [address] Hematocrit (Bld) [Volume fraction] 25.0 % Low 36.0-46.0 [facility] Comment on above: Order Comment: Speci men Type: BLOOD SPECIMEN Ordering Facility: [facility] Address: [address] [place] [address] Performed By: #### 5 8410-2 #### [facility] CLIA [id number] [address] [place] Hemoglobin (Bld) [Mass/Vol] 8.0 g/dL Low 11.5-15.5 [facility] Comment on above: Order Comment: Speci men Type: BLOOD SPECIMEN Ordering Facility: [facility] Address: [address] [place] [address] Performed By: #### 5 8410-2 #### [facility] CLIA [id number] [address] MCH (RBC) [Entitic mass] 28.6 pg Normal 26.0-34.0 [facility] Comment on above: Order Comment: Speci men Type: BLOOD SPECIMEN Ordering Facility: [facility] Address: [address] [place] [address] Performed By: #### 5 8410-2 #### [facility] CLIA [id number] [address] MCHC (RBC) [Mass/Vol] 32.0 g/dL Normal 30.5-36.0 [facility] Comment on above: Order Comment: Speci men Type: BLOOD SPECIMEN Ordering Facility: [facility] Address: [address] [place] [address] Performed By: #### 5 8410-2 #### [facility] CLIA [id number] [address] MCV (RBC) [Entitic vol] 89.3 fL Normal 80.0-100.0 [facility] Comment on above: Order Comment: Speci men Type: BLOOD SPECIMEN Ordering Facility: [facility] Address: [address] [place] [address] Performed By: #### 5 8410-2 #### [facility] CLIA [id number] [address] Nucleated RBC (Bld) [#/Vol] 10*3/uL Normal <0.01 [facility] Comment on above: Order Comment: Speci men Type: BLOOD SPECIMEN Ordering Facility: [facility] Address: [address] [place] [address] Performed By: #### 5 8410-2 #### [facility] CLIA [id number] [address] Platelet mean volume (Bld) [Entitic vol] 9.9 fL Normal 9.0-12.7 [facility] Comment on above: Order Comment: Speci men Type: BLOOD SPECIMEN Ordering Facility: [facility] Address: [address] [place] [address] Performed By: #### 5 8410-2 #### [facility] CLIA [id number] [address] [place] Platelets (Bld) [#/Vol] 148 10*3/uL Low 150-400 [facility] Comment on above: Order Comment: Speci men Type: BLOOD SPECIMEN Ordering Facility: [facility] Address: [address] [place] [address] Performed By: #### 5 8410-2 #### [facility] CLIA [id number] [address] [place] [address] [place] RBC (Bld) [#/Vol] 2.80 10*6/uL Low 3.90-5.20 [facility] Comment on above: Order Comment: Speci men Type: BLOOD SPECIMEN Ordering Facility: [facility] Address: [address] [place] [address] Performed By: #### 5 8410-2 #### [facility] CLIA [id number] [address] [place] WBC (Bld) [#/Vol] 9.29 10*3/uL Normal 3.70-11.00 [facility] Comment on above: Order Comment: Speci men Type: BLOOD SPECIMEN Ordering Facility: [facility] Address: [address] [place] [address] Performed By: #### 5 8410-2 #### [facility] CLIA [id number] [address] [place] CNDSon 12-12-2024 CNDS HNO ID: [id number] Author: JUAN DIEGO KNOWLES MD Service: Hospital [...] You also have anemia related to taking senior care blood thinners and you got better with iron. 1. Take a higher dose of torsemide and follow up with a rn medicare and our CHF clinic to guide your [...] Surgery placed. Wednesday-Wednesday after 9 am, call cloth dye range operator at [phone] [phone] and ask for the appointment line [...] ischemic colitis s/p SMA stenting 09/2024 in [facility], hx of AVR, CKD3. Patient presenting with [...] results. FOLLOW-UP APPOINTMENTS ALREADY SCHEDULED WITH A [facility] PROVIDER: Future Appointments Date Time Provider Department Center 12/21/2024 9:00 AM Albin Gu, UNDERWRITING SALES REPRESENTATIVE.[facility] 01/01/2025 11:00 AM Carla Burdick MD [facility] [place] 01/10/2025 1:00 PM Deysi Collazo APRN.[facility] 02/26/2025 2:20 PM Carla Burdick MD [...] (more content not included)... Normal [facility] CONSULT PROGon 12-12-2024 CONSULT PROG HNO ID: [id number] Author: BETSY HALL MD Service: Nephrology Author [...] (Oral) Resp 16 Ht 157.5 cm (5' 2) Wt 65.6 kg (144 lb 10 oz) [...] (more content not included)... Normal [facility] Magnesium SerPl-ncon 12-12 Magnesium [Mass/Vol] 2.0 mg/dL Normal 1.7-2.3 [facility] Comment on above: Order Comment: Annie ricci Type: BLOOD SPECIMEN Ordering Facility: [facility] Address: [address] [place] [address] Performed By: #### 1 9123-9, 13521-2 #### [facility] CLIA [id number] [address] [place] [address] [place] ALBUMIN/CREATININE RATIO, UR INEon 12-11-2024 Albumin DL <= 20 mg/L (U) [Mass/Vol] 23.5 mg/L Normal [facility] Comment on above: Order Comment: Annie ricci Type: BLOOD SPECIMEN Ordering Facility: [facility] Address: [address] [place] [address] Performed By: #### 2 132-9, 2284-8 #### [facility] CLIA [id number] [address] Albumin/Creatinine (U) [Mass ratio] 76 mg/g High <30 [facility] Comment on above: Order Comment: Annie ricci Type: BLOOD SPECIMEN Ordering Facility: [facility] Address: [address] [place], [place] [address] Result Comment: Adul t Male and Female Nephrotic Criteria: <30 mg/g is considered normal to mildly increased 30-300 mg/g is considered moderately increased >300 mg/g is considered severely increased KDIGO. (2013). KDIGO 2012 Clinical Practice Guideline for the Evaluation and Management of Chronic Kidney Disease. Official Journal of the International Society of Nephrology, 3(1), 1-150. Performed By: #### 2 132-9, 2284-8 #### [facility] CLIA [id number] [address] OF [facility] ALLIED HEALTHon 12-11-2024 ALLIED HEALTH HNO ID: [id number] Author: NUNU CHATMAN RDMS Service: ? Author [...] PATIENT PRESENTS WITH AN IMPLANTABLE OR ATTACHED EXERCISE EQUIPMENT SPECIALIST: N/A RADIOLOGY DEPARTMENT: Ultrasound PERIPHERAL IV DATA: Not applicable SIGNED BY: Nunu Chatman RDMS December 11, 2024 9:14 AM Normal [facility] Basic metabolic 2000 panelon 12-11-2024 Anion gap [Moles/Vol] 13 mmol/L Normal 8-15 [facility] Comment on above: Order Comment: Annie ricci Type: BLOOD SPECIMEN Ordering Facility: [facility] Address: [address] [place] [address] Performed By: #### 2 276-4, 49133-1, 51852-8, 58001-6 #### [facility] CLIA [id number] [address] [place] [address] [place] Calcium [Mass/Vol] 8.9 mg/dL Normal 8.5-10.2 [facility] Comment on above: Order Comment: Speci men Type: BLOOD SPECIMEN Ordering Facility: [facility] Address: [address] [place] [address] Performed By: #### 2 276-4, 67434-2, 55542-2, 70378-7 #### [facility] CLIA [id number] [address] [place] [address] [place] Chloride [Moles/Vol] 93 mmol/L Low 98-107 [facility] Comment on above: Order Comment: Speci men Type: BLOOD SPECIMEN Ordering Facility: [facility] Address: [address] [place] [address] Performed By: #### 2 276-4, 52278-7, 81709-2, 07865-7 #### [facility] CLIA [id number] [address] [place] [address] [place] CO2 [Moles/Vol] 24 mmol/L Normal 22-30 [facility] Comment on above: Order Comment: Speci men Type: BLOOD SPECIMEN Ordering Facility: [facility] Address: [address] [place] [address] Performed By: #### 2 276-4, 80797-3, 57006-2, 63599-1 #### [facility] CLIA [id number] [address] [place] [address] [place] Creatinine [Mass/Vol] 1.70 mg/dL High 0.58-0.96 [facility] Comment on above: Order Comment: Speci men Type: BLOOD SPECIMEN Ordering Facility: [facility] Address: [address] [place] [address] Performed By: #### 2 276-4, 97267-3, 44457-7, 99808-2 #### [facility] CLIA [id number] [address] [place] [address] [place] Creatinine and Glomerular filtration rate.predicted panel (S/P/Bld) 30 mL/min/1.73m??? Low >=60 [facility] Comment on above: Order Comment: Annie ricci Type: BLOOD SPECIMEN Ordering Facility: [facility] Address: [address] [place] [address] Result Comment: Mira mated Glomerular Filtration Rate [...] actual GFR. Performed By: #### 2 276-4, 51003-5, 45818-5, 08550-3 #### [facility] CLIA [id number] [address] [place] [address] [place] Glucose [Mass/Vol] 144 mg/dL High 74-99 [facility] Comment on above: Order Comment: Annie ricci Type: BLOOD SPECIMEN Ordering Facility: [facility] Address: [address] [place] [address] Result Comment: The [place] Diabetes [employer] (ADA) provides guidance for cutoff [...] Standards of Medical Care in Diabetes 2016, [place] [employer]. Diabetes Care. 2016.39(Suppl 1). Performed By: #### 2 276-4, 57796-4, 68920-0, 86549-7 #### [facility] CLIA [id number] [address] [place] [id number] [place] Potassium [Moles/Vol] 3.6 mmol/L Low 3.7-5.1 [facility] Comment on above: Order Comment: Speci men Type: BLOOD SPECIMEN Ordering Facility: [facility] Address: [address] [place] [address] Performed By: #### 2 276-4, 57953-5, 91296-9, 56747-6 #### [facility] CLIA [id number] [address] [place] [address] [place] Sodium [Moles/Vol] 130 mmol/L Low 136-144 [facility] Comment on above: Order Comment: Speci men Type: BLOOD SPECIMEN Ordering Facility: [facility] Address: [address] [place] [address] Performed By: #### 2 276-4, 25496-1, 99907-6, 06896-0 #### [facility] CLIA [id number] [address] [place] Urea nitrogen [Mass/Vol] 54 mg/dL High 7-21 [facility] Comment on above: Order Comment: Speci men Type: BLOOD SPECIMEN Ordering Facility: [facility] Address: [address] [place] [address] Performed By: #### 2 276-4, 13265-2, 60055-0, 89913-1 #### [facility] CLIA [id number] [address] [place] CBC panel Auto (Bld)on 12-11 Erythrocyte distribution width (RBC) [Ratio] 16.1 % High 11.5-15.0 [facility] Comment on above: Order Comment: Speci men Type: BLOOD SPECIMEN Ordering Facility: [facility] Address: [address] [place] [address] Performed By: #### 2 132-9, 8 #### [facility] CLIA [id number] [address] [place] Hematocrit (Bld) [Volume fraction] 23.8 % Low 36.0-46.0 [facility] Comment on above: Order Comment: Speci men Type: BLOOD SPECIMEN Ordering Facility: [facility] Address: [address] [place] [address] Performed By: #### 2 132-9, 8 #### [facility] CLIA [id number] [address] [place] Hemoglobin (Bld) [Mass/Vol] 7.6 g/dL Low 11.5-15.5 [facility] Comment on above: Order Comment: Speci men Type: BLOOD SPECIMEN Ordering Facility: [facility] Address: [address] [place] [address] Performed By: #### 2 132-9, 8 #### [facility] CLIA [id number] [address] [place] MCH (RBC) [Entitic mass] 28.4 pg Normal 26.0-34.0 [facility] Comment on above: Order Comment: Speci men Type: BLOOD SPECIMEN Ordering Facility: [facility] Address: [address] [place] [address] Performed By: #### 2 132-9, 8 #### [facility] CLIA [id number] [address] MCHC (RBC) [Mass/Vol] 31.9 g/dL Normal 30.5-36.0 [facility] Comment on above: Order Comment: Speci men Type: BLOOD SPECIMEN Ordering Facility: [facility] Address: [address] [place] [address] Performed By: #### 2 132-9, 8 #### [facility] CLIA [id number] [address] [place] MCV (RBC) [Entitic vol] 88.8 fL Normal 80.0-100.0 [facility] Comment on above: Order Comment: Speci men Type: BLOOD SPECIMEN Ordering Facility: [facility] Address: [address] [place] [address] Performed By: #### 2 132-9, 8 #### [facility] CLIA [id number] [address] OF [facility] Nucleated RBC (Bld) [#/Vol] 10*3/uL Normal <0.01 [facility] Comment on above: Order Comment: Speci men Type: BLOOD SPECIMEN Ordering Facility: [facility] Address: [address] [place] [address] Performed By: #### 2 132-9, 2283-8 #### [facility] CLIA [id number] [address] [place] [address] [place] Platelet mean volume (Bld) [Entitic vol] 9.8 fL Normal 9.0-12.7 [facility] Comment on above: Order Comment: Speci men Type: BLOOD SPECIMEN Ordering Facility: [facility] Address: [address] [place] [address] Performed By: #### 2 132-9, 2283-8 #### [facility] CLIA [id number] [address] [place] [address] [place] Platelets (Bld) [#/Vol] 160 10*3/uL Normal 150-400 [facility] Comment on above: Order Comment: Speci men Type: BLOOD SPECIMEN Ordering Facility: [facility] Address: [address] [place] [address] Performed By: #### 2 132-9, 2283-8 #### [facility] CLIA [id number] [address] [place] [address] [place] RBC (Bld) [#/Vol] 2.68 10*6/uL Low 3.90-5.20 [facility] Comment on above: Order Comment: Speci men Type: BLOOD SPECIMEN Ordering Facility: [facility] Address: [address] [place] [address] Performed By: #### 2 132-9, 2283-8 #### [facility] CLIA [id number] [address] [place] [address] [place] WBC (Bld) [#/Vol] 7.37 10*3/uL Normal 3.70-11.00 [facility] Comment on above: Order Comment: Speci men Type: BLOOD SPECIMEN Ordering Facility: [facility] Address: [address] [place] [address] Performed By: #### 2 132-9, 2283-8 #### [facility] CLIA [id number] [address] [place] CNPNon 12-11-2024 JASPREETN Telephone (4CQ) BERTA SANCHES ([id number]) 1945 F [facility] Date Time Provider Department 12/11/24 DEYSI COLLAZO 4CQ During your visit today, we recorded the following information about you: Marilyn Csear 12/11/2024 11:06 AM Signed Patient called to cancel hospital follow up due to re admission yesterday 12/10/2024 Sigifredo Rivera LPN 12/11/2024 11:15 AM Signed Pt re admitted to [facility]. GOPI Hill Christy, APRN.CNP 12/11/2024 1:06 PM Signed Noted. Deysi Collazo APRN.BRANCH LEAD Allergies As of Date: 12/11/2024 Noted Allergy [...] 02/26/2014 03/21/2022 Intracranial aneurysm [I67.1] 08/30/2015 10/05/2022 long-term current use of antiarrhythmic medical*10/20/2016 09/12/2021 Prosthetic [...] [J90] 03/06 (more content not included)... Normal [facility] CONSULTon 12-11-2024 CONSULT HNO ID: [id number] Author: HEMANT JIMENEZ MD Service: Gastroenterology Author Type: Physician Type: Consults Filed: 12/11/2024 15:46 Note Text: GASTROENTEROLOGY CONSULT NOTE PATIENT NAME: Berta Sanches SERVICE DATE: December 11, 2024 SERVICE TIME: 11:59 AM PRIMARY CARE PHYSICIAN: Deysi Collazo APRN.BRANCH LEAD ATTENDING PHYSICIAN:Juan Diego Knowles MD REASON FOR ADMISSION: CHF REASON FOR CONSULTATION:BUSHRA HPI: This is a 79 year old female with a past medical history significant for cervical cancer, brain aneurysm, s/p coiling, bilateral carotid stenosis, afib s/p watchman 2022, D-CHF, SSS S/P pacemaker placement, Hx AVR, CKD3, HTN, DM, GERD, diverticulitis, 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 Lua PACEMAKER 10/2019 PART. HYSTERECTOMY W/WO RMVL OVARIES/TUBES 1973 h/o cervical cancer ovaries remain PAST SURGICAL HISTORY OF 1996 Aortic valve repair, Dr. Apodaca PAST SURGICAL HISTORY OF 2001 [address] Beltrán, [facility] PAST SURGICAL HISTORY OF 2016 clipping [...] , 12/09/2024 t (more content not included)... [facility] CONSULT PROGon 12-11-2024 CONSULT PROG HNO ID: [id number] Author: BESTY HALL MD Service: Nephrology Author Type: Physician [...] (Oral) Resp 16 Ht 157.5 cm (5' 2) Wt 66.1 kg (145 lb 11.6 oz) [...] p.o. twice daily -- Previous record from [place] reviewed in detail. -- Kidney ultrasound from 10/04/2024 reviewed. Significantly increased velocity in proximal left renal artery suggestive of left renal artery stenosis -- Repeat kidney ultrasound and renal artery duplex Normal [facility] Creat ?Tm Ur-mCncon 12-12-19 25 Creatinine (U) [Mass/Vol] 31.1 mg/dL Normal 20.0-300.0 [facility] Comment on above: Order Comment: Speci men Type: BLOOD SPECIMEN Ordering Facility: [facility] Address: [facility] [place] [address] Performed By: #### 2 132-9, 8 #### [facility] CLIA [id number] [address] [place] [address] [place] Ferritin SerPl-mCncon 2024 Ferritin [Mass/Vol] 36.2 ng/mL Normal 14.7-205.1 [facility] Comment on above: Order Comment: Speci men Type: BLOOD SPECIMEN Ordering Facility: [facility] Address: [address] [place] [address] Performed By: #### 2 276-4, 32121-3, 88082-9, 10927-7 #### [facility] CLIA [id number] [address] [place] [address] [place] Folate SerPl-mCncon 12-12-19 Folate [Mass/Vol] 11.3 ng/mL Normal >4.7 [facility] Comment on above: Order Comment: Speci men Type: BLOOD SPECIMEN Ordering Facility: [facility] Address: [address] [place] [address] Performed By: #### 2 132-9, 8 #### [facility] CLIA [id number] [address] [place] [address] [place] Iron and Iron binding capaci ty panelon 12-11-2024 Iron [Mass/Vol] 17 ug/dL Low 41-186 [facility] Comment on above: Order Comment: Speci men Type: BLOOD SPECIMEN Ordering Facility: [facility] Address: [address] [place] [address] Performed By: #### 2 132-9, 8 #### [facility] CLIA [id number] [address] [place] [address] [place] Iron binding capacity [Mass/Vol] 416 ug/dL High 232-386 [facility] Comment on above: Order Comment: Speci men Type: BLOOD SPECIMEN Ordering Facility: [facility] Address: [address] [place] [address] Performed By: #### 2 132-9, 2283-8 #### [facility] CLIA [id number] [address] [place] [address] [place] Iron/TIBC [Molar ratio] 4.1 % Low 15.0-57.0 [facility] Comment on above: Order Comment: Annie keiry Type: BLOOD SPECIMEN Ordering Facility: [facility] Address: [address] [place] [address] Performed By: #### 2 132-9, 2284-8 #### [facility] CLIA [id number] [address] OF [facility] Magnesium SerPl-mCncon 12-11 Magnesium [Mass/Vol] 1.8 mg/dL Normal 1.7-2.3 [facility] Comment on above: Order Comment: Annie keiry Type: BLOOD SPECIMEN Ordering Facility: [facility] Address: [address] [place] [address] Performed By: #### 2 276-4, 39931-4, 56562-2, 65145-8 #### [facility] CLIA [id number] [address] [place] NURSING PROGon 12-11-2024 NURSING PROG HNO ID: [id number] Author: BRIANNA BETANCOURT, DOUG Service: Nursing Author Type: Registered Nurse Type: Nursing Progress Note Filed: 12/11/2024 15:17 Note Text: PATIENT EDUCATION HEART FAILURE PATIENT NAME: Berta Sanches PATIENT LOCATION: [place] [address]/[place] [id number] 2 SURVIVAL SKILLS: Low Sodium Diet Weight [...] Signed By: Brianna Betancourt Normal [facility] OCCULT BLD EXAM-DIAGon 12-11 OCCULT BLD EXAM-DIAG Positive Abnormal [facility] Comment on above: Performed By: #### 1 9123-9, 39791-2 #### [facility] CLIA [id number] [address] [place] [address] [place] Prot/Creat Uron 12-11-2024 Protein/Creatinine (U) [Mass ratio] 0.26 mg/mg High <0.15 [facility] Comment on above: Order Comment: Annie ricci Type: BLOOD SPECIMEN Ordering Facility: [facility] Address: [address] [place] [address] Result Comment: Adul t Proteinuria Categories: <0.15 mg/mg is considered normal to mildly increased 0.15 - 0.50 mg/mg is considered moderately increased >0.50 mg/mg is considered severely increased KDIGO. (2013). KDIGO 2012 Clinical Practice Guideline for the Evaluation and Management of Chronic Kidney Disease. Official Journal of the International Society of Nephrology, 3(1), 1-150. Performed By: #### 2 132-9, 2284-8 #### [facility] CLIA [id number] [address] [place] [address] [place] Protein/Creatinine (U) [Mass ratio]on 12-11-2024 Protein (U) [Mass/Vol] 8 mg/dL Normal 0-20 [facility] Comment on above: Order Comment: Annie ricci Type: BLOOD SPECIMEN Ordering Facility: [facility] Address: [address] [place] [address] Performed By: #### 2 132-9, 2284-8 #### [facility] CLIA [id number] [address] [place] [address] [place] Sodium ?Tm Ur-sCncon 025 Sodium Unsp time (U) [Moles/Vol] 67 mmol/L Normal 14-216 [facility] Comment on above: Order Comment: Speci men Type: BLOOD SPECIMEN Ordering Facility: [facility] Address: [address] [place] [address] Performed By: #### 2 132-9, 2284-8 #### [facility] CLIA [id number] [address] [place] [address] [place] UREA NITROGEN, RANDOM URINEo n 12-11-2024 UREA NITROGEN,UR,RAN 400 mg/dL Normal 140-1500 [facility] Comment on above: Order Comment: Speci men Type: BLOOD SPECIMEN Ordering Facility: [facility] Address: [address] [place] [address] Performed By: #### 2 132-9, 2284-8 #### [facility] CLIA [id number] [address] [place] [address] [place] URINALYSIS, REFLEX MICROSCOP ICon 12-11-2024 Bilirubin Ql (U) Negative Normal Negative [facility] Comment on above: Order Comment: Speci men Type: URINE SPECIMEN Ordering Facility: [facility] Address: [address] [place] [address] Performed By: #### L [id number] #### [facility] CLIA [id number] [address] [place] [address] [place] Clarity (Unsp spec) Clear Normal Clear [facility] Comment on above: Order Comment: Speci men Type: URINE SPECIMEN Ordering Facility: [facility] Address: [address] [place] [address] Performed By: #### L [id number] #### [facility] CLIA [id number] [address] [place] Color (U) Yellow Normal Yellow [facility] Comment on above: Order Comment: Speci men Type: URINE SPECIMEN Ordering Facility: [facility] Address: [address] [place] [address] Performed By: #### L [id number] #### [facility] CLIA [id number] [address] Glucose Test strip (U) [Mass/Vol] Negative Normal Negative [facility] Comment on above: Order Comment: Speci men Type: URINE SPECIMEN Ordering Facility: [facility] Address: [facility] [place] [address] Performed By: #### L [id number] #### [facility] CLIA [id number] [address] [place] Hemoglobin Ql (U) Negative Normal Negative [facility] Comment on above: Order Comment: Speci men Type: URINE SPECIMEN Ordering Facility: [facility] Address: [address] [place] [address] Performed By: #### L [id number] #### [facility] CLIA [id number] [address] [place] Ketones Ql (U) Negative Normal Negative [facility] Comment on above: Order Comment: Speci men Type: URINE SPECIMEN Ordering Facility: [facility] Address: [address] [place] [address] Performed By: #### L [id number] #### [facility] CLIA [id number] [address] Leukocyte esterase Test strip Ql (U) Negative Normal Negative [facility] Comment on above: Order Comment: Speci men Type: URINE SPECIMEN Ordering Facility: [facility] Address: [facility] [place] [address] Performed By: #### L [id number] #### [facility] CLIA [id number] [address] Nitrite Ql (U) Negative Normal Negative [facility] Comment on above: Order Comment: Speci men Type: URINE SPECIMEN Ordering Facility: [facility] Address: [facility] [place] [address] Performed By: #### L [id number] #### [facility] CLIA [id number] [address] [place] [address] [place] pH (U) 6.5 [pH] Normal 5.0-8.0 [facility] Comment on above: Order Comment: Speci men Type: URINE SPECIMEN Ordering Facility: [facility] Address: [address] [place] [address] Performed By: #### L [id number] #### [facility] CLIA [id number] [address] Protein (U) [Mass/Vol] Negative Normal Negative [facility] Comment on above: Order Comment: Speci men Type: URINE SPECIMEN Ordering Facility: [facility] Address: [address] [place] [address] Performed By: #### L [id number] #### [facility] CLIA [id number] [address] Specific gravity (U) [Rel density] 1.010 Normal 1.005-1.030 [facility] Comment on above: Order Comment: Speci men Type: URINE SPECIMEN Ordering Facility: [facility] Address: [address] [place] [address] Performed By: #### L [id number] #### [facility] CLIA [id number] [address] Urobilinogen Ql (U) 0.2 EU/dL Normal 0.2-1.0 EU/dL [facility] Comment on above: Order Comment: Speci men Type: URINE SPECIMEN Ordering Facility: [facility] Address: [address] [place] [address] Performed By: #### L [id number] #### [facility] CLIA [id number] [address] [place] [address] [place] US RENAL ARTERY/VEINon [...] LEFT: 60-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 Transcribe Date/Time: Dec 11 2024 11:31A Dictated by : ANNETTA ALLEN DO This examination was interpreted and the report reviewed and electronically signed by: ANNETTA ALLEN DO on Dec 11 2024 11:41AM EST [id number] Normal [facility] Vit B12 SerPl-ncon 025 Cobalamin (Vitamin B12) [Mass/Vol] 1393 pg/mL High 232-1245 [facility] Comment on above: Order Comment: Speci men Type: BLOOD SPECIMEN Ordering Facility: [facility] Address: [address] [place] [address] Performed By: #### 2 132-9, 2284-8 #### [facility] CLIA [id number] [address] [place] [address] [place] ALLIED HEALTHon 12-10-2024 ALLIED HEALTH HNO ID: [id number] Author: SHONDA CUNNINGHAM RT(R) Service: Radiology Author [...] PATIENT PRESENTS WITH AN IMPLANTABLE OR ATTACHED EXERCISE EQUIPMENT SPECIALIST: No RADIOLOGY DEPARTMENT: General X-ray: Exam(s) Completed: Chest X-Ray PERIPHERAL IV DATA: Not applicable SIGNED BY: RT Boyd(R) December 10, 2024 8:10 AM Normal [facility] CBC W Auto Differential pane l (Bld)on 12-10-2024 Basophils (Bld) [#/Vol] 0.09 10*3/uL Normal <0.11 [facility] Comment on above: Order Comment: Speci men Type: BLOOD SPECIMEN Ordering Facility: [facility] Address: [address] [place] [address] Performed By: #### 5 7021-8 #### [facility] CLIA [id number] [address] [place] [address] [place] Basophils/100 WBC (Bld) 1.1 % Normal [facility] Comment on above: Order Comment: Speci men Type: BLOOD SPECIMEN Ordering Facility: [facility] Address: [address] [place] [address] Performed By: #### 5 7021-8 #### [facility] CLIA [id number] [address] [place] [address] [place] Differential cell count method Nom (Bld) Auto Normal [facility] Comment on above: Order Comment: Speci men Type: BLOOD SPECIMEN Ordering Facility: [facility] Address: [address] [place] [address] Performed By: #### 5 7021-8 #### [facility] CLIA [id number] [address] [place] [address] [place] Eosinophils (Bld) [#/Vol] 0.21 10*3/uL Normal <0.46 [facility] Comment on above: Order Comment: Speci men Type: BLOOD SPECIMEN Ordering Facility: [facility] Address: [address] [place] [address] Performed By: #### 5 7021-8 #### [facility] CLIA [id number] [address] Eosinophils/100 WBC (Bld) 2.6 % Normal [facility] Comment on above: Order Comment: Speci men Type: BLOOD SPECIMEN Ordering Facility: [facility] Address: [address] [place] [address] Performed By: #### 5 7021-8 #### [facility] CLIA [id number] [address] [place] Erythrocyte distribution width (RBC) [Ratio] 16.2 % High 11.5-15.0 [facility] Comment on above: Order Comment: Speci men Type: BLOOD SPECIMEN Ordering Facility: [facility] Address: [address] [place] [address] Performed By: #### 5 7021-8 #### [facility] CLIA [id number] [address] [place] Hematocrit (Bld) [Volume fraction] 26.5 % Low 36.0-46.0 [facility] Comment on above: Order Comment: Speci men Type: BLOOD SPECIMEN Ordering Facility: [facility] Address: [address] [place] [address] Performed By: #### 5 7021-8 #### [facility] CLIA [id number] [address] [place] Hemoglobin (Bld) [Mass/Vol] 8.2 g/dL Low 11.5-15.5 [facility] Comment on above: Order Comment: Speci men Type: BLOOD SPECIMEN Ordering Facility: [facility] Address: [address] [place] [address] Performed By: #### 5 7021-8 #### [facility] CLIA [id number] [address] Immature granulocytes (Bld) [#/Vol] 0.03 10*3/uL Normal <0.10 [facility] Comment on above: Order Comment: Speci men Type: BLOOD SPECIMEN Ordering Facility: [facility] Address: [address] [place] [address] Performed By: #### 5 7021-8 #### [facility] CLIA [id number] [address] Immature granulocytes/100 WBC (Bld) 0.4 % Normal [facility] Comment on above: Order Comment: Speci men Type: BLOOD SPECIMEN Ordering Facility: [facility] Address: [address] [place] [address] Performed By: #### 5 7021-8 #### [facility] CLIA [id number] [address] [place] Lymphocytes (Bld) [#/Vol] 2.52 10*3/uL Normal 1.00-4.00 [facility] Comment on above: Order Comment: Speci men Type: BLOOD SPECIMEN Ordering Facility: [facility] Address: [address] [place] [address] Performed By: #### 5 7021-8 #### [facility] CLIA [id number] [address] Lymphocytes/100 WBC (Bld) 30.7 % Normal [facility] Comment on above: Order Comment: Speci men Type: BLOOD SPECIMEN Ordering Facility: [facility] Address: [address] [place] [address] Performed By: #### 5 7021-8 #### [facility] CLIA [id number] [address] [place] [address] [place] MCH (RBC) [Entitic mass] 28.5 pg Normal 26.0-34.0 [facility] Comment on above: Order Comment: Speci men Type: BLOOD SPECIMEN Ordering Facility: [facility] Address: [address] [place] [address] Performed By: #### 5 7021-8 #### [facility] CLIA [id number] [address] STATES OF [facility] MCHC (RBC) [Mass/Vol] 30.9 g/dL Normal 30.5-36.0 [facility] Comment on above: Order Comment: Speci men Type: BLOOD SPECIMEN Ordering Facility: [facility] Address: [address] [place] [address] Performed By: #### 5 7021-8 #### [facility] CLIA [id number] [address] MCV (RBC) [Entitic vol] 92.0 fL Normal 80.0-100.0 [facility] Comment on above: Order Comment: Speci men Type: BLOOD SPECIMEN Ordering Facility: [facility] Address: [address] [place] [address] Performed By: #### 5 7021-8 #### [facility] CLIA [id number] [address] OF [place] Monocytes (Bld) [#/Vol] 1.19 10*3/uL High <0.87 [facility] Comment on above: Order Comment: Speci men Type: BLOOD SPECIMEN Ordering Facility: [facility] Address: [address] [place] [address] Performed By: #### 5 7021-8 #### [facility] CLIA [id number] [address] Monocytes/100 WBC (Bld) 14.5 % Normal [facility] Comment on above: Order Comment: Speci men Type: BLOOD SPECIMEN Ordering Facility: [facility] Address: [address] [place] [address] Performed By: #### 5 7021-8 #### [facility] CLIA [id number] [address] [place] Neutrophils (Bld) [#/Vol] 4.17 10*3/uL Normal 1.45-7.50 [facility] Comment on above: Order Comment: Speci men Type: BLOOD SPECIMEN Ordering Facility: [facility] Address: [address] [place] [address] Performed By: #### 5 7021-8 #### [facility] CLIA [id number] [address] [place] Neutrophils/100 WBC (Bld) 50.7 % Normal [facility] Comment on above: Order Comment: Speci men Type: BLOOD SPECIMEN Ordering Facility: [facility] Address: [address] [place] [address] Performed By: #### 5 7021-8 #### [facility] CLIA [id number] [address] [place] Nucleated RBC (Bld) [#/Vol] 10*3/uL Normal <0.01 [facility] Comment on above: Order Comment: Speci men Type: BLOOD SPECIMEN Ordering Facility: [facility] Address: [address] [place] [address] Performed By: #### 5 7021-8 #### [facility] CLIA [id number] [address] [place] Nucleated RBC/100 WBC (Bld) [Ratio] 0.0 /100 WBC Normal [facility] Comment on above: Order Comment: Speci men Type: BLOOD SPECIMEN Ordering Facility: [facility] Address: [address] [place] [address] Performed By: #### 5 7021-8 #### [facility] CLIA [id number] 1000 [place] [address] [place] Platelet mean volume (Bld) [Entitic vol] 10.5 fL Normal 9.0-12.7 [facility] Comment on above: Order Comment: Speci men Type: BLOOD SPECIMEN Ordering Facility: [facility] Address: [address] [place] [address] Performed By: #### 5 7021-8 #### [facility] CLIA [id number] 1000 [place] [address] [place] Platelets (Bld) [#/Vol] 168 10*3/uL Normal 150-400 [facility] Comment on above: Order Comment: Speci men Type: BLOOD SPECIMEN Ordering Facility: [facility] Address: [address] [place] [address] Performed By: #### 5 7021-8 #### [facility] CLIA [id number] [address] [place] RBC (Bld) [#/Vol] 2.88 10*6/uL Low 3.90-5.20 [facility] Comment on above: Order Comment: Speci men Type: BLOOD SPECIMEN Ordering Facility: [facility] Address: [address] [place] [address] Performed By: #### 5 7021-8 #### [facility] CLIA [id number] [address] [place] WBC (Bld) [#/Vol] 8.21 10*3/uL Normal 3.70-11.00 [facility] Comment on above: Order Comment: Speci men Type: BLOOD SPECIMEN Ordering Facility: [facility] Address: [address] [place] [address] Performed By: #### 5 7021-8 #### [facility] CLIA [id number] [address] CONSULTon 12-10-2024 CONSULT HNO ID: [id number] Author: BETSY HLAL MD Service: Nephrology Author Type: Physician Type: Consults Filed: 12/10/2024 19:42 Note Text: INPATIENT INITIAL NEPHROLOGY CONSULT SERVICE DATE: 12/10/2024 SERVICE TIME: 7:30 PM REASON FOR CONSULT: MONIQUE/ CRS REQUESTING PHYSICIAN: Dr Tuttle PRIMARY CARE PHYSICIAN: Deysi Collazo APRN.BRANCH LEAD CC: SOB and edema Subjective Ms. 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 Lua PACEMAKER 10/2019 PART. HYSTERECTOMY W/WO RMVL OVARIES/TUBES 1973 h/o cervical cancer ovaries remain PAST SURGICAL HISTORY OF 1996 Aortic valve repair, Dr. Apodaca PAST SURGICAL HISTORY OF 2001 [address] Beltrán, [facility] PAST SURGICAL HISTORY OF 2015 clipping [...] (more content not included)... Normal [facility] Comprehensive metabolic 2000 panelon 12-10-2024 Albumin [Mass/Vol] 3.8 g/dL Low 3.9-4.9 [facility] Comment on above: Order Comment: Speci men Type: URINE SPECIMEN Ordering Facility: [facility] Address: [address] [place] [address] Performed By: #### L [id number] #### [facility] CLIA [id number] [address] [place] [address] [place] ALP [Catalytic activity/Vol] 139 U/L High 34-123 [facility] Comment on above: Order Comment: Speci men Type: URINE SPECIMEN Ordering Facility: [facility] Address: [address] [place] [address] Performed By: #### L [id number] #### [facility] CLIA [id number] 1000 [place] [address] [place] ALT [Catalytic activity/Vol] 12 U/L Normal 7-38 [facility] Comment on above: Order Comment: Speci men Type: URINE SPECIMEN Ordering Facility: [facility] Address: [address] [place] [address] Performed By: #### L [id number] #### [facility] CLIA [id number] 1000 [place] [address] [place] Anion gap [Moles/Vol] 13 mmol/L Normal 8-15 [facility] Comment on above: Order Comment: Speci men Type: URINE SPECIMEN Ordering Facility: [facility] Address: [address] [place] [address] Performed By: #### L [id number] #### [facility] CLIA [id number] 1000 [place] [address] [place] AST [Catalytic activity/Vol] 27 U/L Normal 13-35 [facility] Comment on above: Order Comment: Speci men Type: URINE SPECIMEN Ordering Facility: [facility] Address: [address] [place] [address] Performed By: #### L [id number] #### [facility] CLIA [id number] 1000 [place] [address] [place] Bilirubin [Mass/Vol] 0.8 mg/dL Normal 0.2-1.3 [facility] Comment on above: Order Comment: Speci men Type: URINE SPECIMEN Ordering Facility: [facility] Address: [address] [place] [address] Performed By: #### L [id number] #### [facility] CLIA [id number] 1000 [place] [address] [place] Calcium [Mass/Vol] 9.0 mg/dL Normal 8.5-10.2 [facility] Comment on above: Order Comment: Speci men Type: URINE SPECIMEN Ordering Facility: [facility] Address: [address] [place] [address] Performed By: #### L [id number] #### [facility] CLIA [id number] [address] STATES OF [facility] Chloride [Moles/Vol] 98 mmol/L Normal 98-107 [facility] Comment on above: Order Comment: Speci men Type: URINE SPECIMEN Ordering Facility: [facility] Address: [address] [place] [address] Performed By: #### L [id number] #### [facility] CLIA [id number] 1000 [place] [address] [place] CO2 [Moles/Vol] 20 mmol/L Low 22-30 [facility] Comment on above: Order Comment: Speci men Type: URINE SPECIMEN Ordering Facility: [facility] Address: [address] [place] [address] Performed By: #### L [id number] #### [facility] CLIA [id number] 1000 [place] [address] [place] Creatinine [Mass/Vol] 1.90 mg/dL High 0.58-0.96 [facility] Comment on above: Order Comment: Speci men Type: URINE SPECIMEN Ordering Facility: [facility] Address: [address] [place] [address] Performed By: #### L [id number] #### [facility] CLIA [id number] [address] Creatinine and Glomerular filtration rate.predicted panel (S/P/Bld) 27 mL/min/1.73m??? Low >=60 [facility] Comment on above: Order Comment: Speci men Type: URINE SPECIMEN Ordering Facility: [facility] Address: [address] [place] [address] Result Comment: Mira mated Glomerular Filtration Rate [...] reflect actual GFR. Performed By: #### L [id number] #### [facility] CLIA [id number] 1000 [place] [address] [place] Glucose [Mass/Vol] 140 mg/dL High 74-99 [facility] Comment on above: Order Comment: Speci men Type: URINE SPECIMEN Ordering Facility: [facility] Address: [address] [place] [address] Result Comment: The [place] [employer] (ADA) provides guidance for cutoff [...] Standards of Medical Care in Diabetes 2016, [place] [employer]. Diabetes Care. 2016.39(Suppl 1). Performed By: #### L [id number] #### [facility] CLIA [id number] 1000 [place] [address] [place] Potassium [Moles/Vol] 4.2 mmol/L Normal 3.7-5.1 [facility] Comment on above: Order Comment: [facility] Type: URINE SPECIMEN Ordering Facility: [facility] Address: [address] [place] [address] Performed By: #### L [id number] #### [facility] CLIA [id number] 1000 [place] [address] [place] Protein [Mass/Vol] 7.3 g/dL Normal 6.3-8.0 [facility] Comment on above: Order Comment: Speci men Type: URINE SPECIMEN Ordering Facility: [facility] Address: [address] [place] [address] Performed By: #### L [id number] #### [facility] CLIA [id number] 1000 [place] [address] [place] Sodium [Moles/Vol] 131 mmol/L Low 136-144 [facility] Comment on above: Order Comment: Speci men Type: URINE SPECIMEN Ordering Facility: [facility] Address: [address] [place] [address] Performed By: #### L [id number] #### [facility] CLIA [id number] 1000 [place] [address] [place] Urea nitrogen [Mass/Vol] 63 mg/dL High 7-21 [facility] Comment on above: Order Comment: Speci men Type: URINE SPECIMEN Ordering Facility: [facility] Address: [address] [place] [address] Performed By: #### L [id number] #### [facility] CLIA [id number] [address] ECG COMPLETEon 12-10-2024 ECG COMPLETE Ventricular Rate : 7 9 BPM QRS Duration : 118 ms Q-T Interval : 418 ms QTC Calculation(Bazett) : 479 ms Calculated R [place] : -30 degrees Calculated T [place] : 161 degrees ATRIAL FIBRILLATION WITH PREMATURE VENTRICULAR OR ABERRANTLY CONDUCTED COMPLEXES LEFT AXIS DEVIATION LEFT VENTRICULAR HYPERTROPHY WITH QRS WIDENING ( R in aVL , Landen product ) T WAVE ABNORMALITY, CONSIDER LATERAL ISCHEMIA ABNORMAL ECG No Stemi Confirmed by ANSON MANRIQUE DO ([id number]) on 12/10/2024 3:12:25 PM NAME : BERTA SANCHES PID : [id number] : 1945 Gender : Female Race : ORD : [id number] Procedure Date : Dec 10 2024 07:55:48 Edit Date : Dec 10 2024 15:12:31 Diagnosis: ATRIAL FIBRILLATION WITH PREMATURE VENTRICULAR OR ABERRANTLY CONDUCTED COMPLEXES LEFT AXIS DEVIATION LEFT VENTRICULAR HYPERTROPHY WITH QRS WIDENING ( R in aVL , Landen product ) T WAVE ABNORMALITY, CONSIDER LATERAL ISCHEMIA ABNORMAL ECG No Stemi Confirmed by ANSON MANRIQUE DO ([id number]) on 12/10/2024 3:12:25 PM Test Reason : Chest Pain Location : 1 : ER ED Overread By : ANSON MANRIQUE DO Edited By : ANSON MANRIQUE DO Referred By : , Acquired by : [id number], Normal [facility] ED NOTEon 12-10-2024 ED NOTE HNO ID: [id number] Author: ANNETTE, RODERICK, RN Service: ? Author Type: Registered Nurse Type: ED Notes Filed: 12/10/2024 07:36 Note Text: DO Manrique rounds at bedside [facility] ED PROV NOTEon 12-10-2024 ED PROV NOTE HNO ID: [id number] Author: ANSON MANRIQUE DO Service: Emergency Medicine [...] aneurysm of anterior communicating artery (HCC) Dr. 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 Lua PACEMAKER 10/2019 PART. HYSTERECTOMY W/WO RMVL OVARIES/TUBES 1973 h/o cervical cancer ovaries remain PAST SURGICAL HISTORY OF 1996 Aortic valve repair, Dr. Apodaca PAST SURGICAL HISTORY OF 2001 [address] Beltrán, [facility] PAST SURGICAL HISTORY OF 2015 clipping [...] (more content not included)... Normal [facility] HIGH SENSITIVITY TROPONIN T (INITIAL)on 12-10-2024 Troponin T.cardiac High sensitivity method [Mass/Vol] 72 ng/L High <[address] [place] [address] Comment on above: Order Comment: Speci men Type: URINE SPECIMEN Ordering Facility: [facility] Address: [address] [place] [address] Performed By: #### L [id number] #### [facility] CLIA [id number] [address] HIGH SENSITIVITY TROPONIN T (SECOND)on 12-10-2024 Troponin T.cardiac High sensitivity method [Mass/Vol] 66 ng/L High <[address] [place] [address] Comment on above: Order Comment: Speci men Type: BLOOD SPECIMEN Ordering Facility: [facility] Address: [address] [place] [address] Performed By: #### 2 132-9, 2284-8 #### [facility] CLIA [id number] [address] HIGH SENSITIVITY TROPONIN T (THIRD) 3 HRS AFTER INITIALon 12-10-2024 Troponin T.cardiac High sensitivity method [Mass/Vol] 63 ng/L High <[address] [place] [address] Comment on above: Order Comment: Speci men Type: BLOOD SPECIMEN Ordering Facility: [facility] Address: [address] [place] [address] Performed By: #### 2 132-9, 2284-8 #### [facility] CLIA [id number] [address] [place] HISTORY PHYSICALon HISTORY PHYSICAL HNO ID: [id number] Author: JUAN DIEGO KNOWLES MD Service: Hospital Medicine Author Type: Physician Type: H&P Filed: 12/10/2024 13:50 Note Text: HISTORY AND PHYSICAL EXAMINATION PRIMARY CARE PHYSICIAN: Deysi Collazo APRN.BRANCH LEAD HPI: 79 yo woman with hx of 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 Lua PACEMAKER 10/2019 PART. HYSTERECTOMY W/WO RMVL OVARIES/TUBES 1974 h/o cervical cancer ovaries remain PAST SURGICAL HISTORY OF 1996 Aortic valve repair, Dr. Apodaca PAST SURGICAL HISTORY OF 2001 [address] Beltrán, [facility] PAST SURGICAL HISTORY OF 2016 clipping [...] (Temporal) Resp 19 Ht 157.5 cm (5' 2) Wt 65.8 kg (145 lb) SpO2 97% [...] (more content not included)... Normal [facility] Magnesium [facility] 12-10 Magnesium [Mass/Vol] 1.9 mg/dL Normal 1.7-2.3 [facility] Comment on above: Order Comment: Speci men Type: URINE SPECIMEN Ordering Facility: [facility] Address: [address] [place] [address] Performed By: #### L [id number] #### [facility] CLIA [id number] [address] [place] NT-proBNP [facility] 12-10 Natriuretic peptide.B prohormone N-Terminal [Mass/Vol] 32680 pg/mL High <450 [facility] Comment on above: Order Comment: Speci men Type: URINE SPECIMEN Ordering Facility: [facility] Address: [address] [place] [address] Performed By: #### L [id number] #### [facility] CLIA [id number] [address] [place] XR CHEST 1V [...] lungs. Cardiomegaly/enlargeme nt of the cardiac silhouette. 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: PSCMike Transcribe Date/Time: Dec 10 2024 8:28A Dictated by : KIERSTEN MONTENEGRO MD This examination was interpreted and the report reviewed and electronically signed by: KIERSTEN MONTENEGRO MD on Dec 10 2024 8:31AM EST [id number] Normal [facility] Basic metabolic 2000 panelon 12-01-2024 Anion gap [Moles/Vol] 14 mmol/L Normal 8-15 [facility] Comment on above: Order Comment: Speci men Type: BLOOD SPECIMEN Ordering Facility: [facility] Address: [address] [place] [address] Performed By: #### 2 4331-1 #### [facility] CLIA [id number] [address] [place] [address] [place] [facility] [id number] [address] [place] [address] [place] #### 93760-8 #### [facility] CLIA [id number] [address] [place] [address] [place] Calcium [Mass/Vol] 9.5 mg/dL Normal 8.5-10.2 [facility] Comment on above: Order Comment: Speci men Type: BLOOD SPECIMEN Ordering Facility: [facility] Address: [address] [place] [address] Performed By: #### 2 4331-1 #### [facility] CLIA [id number] [address] [place] [address] [place] [id number] [address] [place] [address] [place] #### 99993-7 #### [facility] CLIA [id number] [address] [place] [address] [place] Chloride [Moles/Vol] 97 mmol/L Low 98-107 [facility] Comment on above: Order Comment: Speci men Type: BLOOD SPECIMEN Ordering Facility: [facility] Address: [address] [place] [address] Performed By: #### 2 4331-1 #### [facility] CLIA [id number] [address] [place] [address] [place] [facility] CLIA [id number] [address] [place] [address] [place] #### 10299-5 #### [facility] CLIA [id number] [address] [place] [address] [place] CO2 [Moles/Vol] 22 mmol/L Normal 22-30 [facility] Comment on above: Order Comment: Speci men Type: BLOOD SPECIMEN Ordering Facility: [facility] Address: [address] [place] [address] Performed By: #### 2 4331-1 #### [facility] CLIA [id number] [address] [place] [address] [place] [facility] CLIA [id number] [address] [place] [address] [place] #### 03903-0 #### [facility] CLIA [id number] [address] [place] [address] [place] Creatinine [Mass/Vol] 1.79 mg/dL High 0.58-0.96 [facility] Comment on above: Order Comment: Speci men Type: BLOOD SPECIMEN Ordering Facility: [facility] Address: [address] [place] [address] Performed By: #### 2 4331-1 #### [facility] CLIA [id number] [address] [place] [address] [place] [facility] CLIA [id number] [address] [place] [address] [place] #### 21828-9 #### [facility] CLIA [id number] [address] [place] [address] [place] Creatinine and Glomerular filtration rate.predicted panel (S/P/Bld) 29 mL/min/1.73m??? Low >=60 [facility] Comment on above: Order Comment: Speci men Type: BLOOD SPECIMEN Ordering Facility: [facility] Address: [address] [place] [address] Result Comment: Mira mated Glomerular Filtration Rate [...] GFR. Performed By: #### 2 4331-1 #### [facility] CLIA [id number] [address] [place] [address] [place] [facility] CLIA [id number] [address] [place] [address] [place] #### 56504-9 #### [facility] CLIA [id number] [address] [place] [address] [place] Glucose [Mass/Vol] 151 mg/dL High 74-99 [facility] Comment on above: Order Comment: Speci men Type: BLOOD SPECIMEN Ordering Facility: [facility] Address: [address] [place] [address] Result Comment: The [place] Diabetes [employer] (ADA) provides guidance for cutoff [...] Standards of Medical Care in Diabetes 2016, [place] [employer]. Diabetes Care. 2016.39(Suppl 1). Performed By: #### 2 4331-1 #### [facility] CLIA [id number] [address] [place] [address] [place] [facility] [id number] [place] [address] [place] #### 47910-4 #### [facility] CLIA [id number] [address] [place] [address] [place] Potassium [Moles/Vol] 4.2 mmol/L Normal 3.7-5.1 [facility] Comment on above: Order Comment: Speci men Type: BLOOD SPECIMEN Ordering Facility: [facility] Address: [address] [place] [address] Performed By: #### 2 4331-1 #### [facility] CLIA [id number] [address] [place] [address] [place] [facility] CLIA [id number] [address] [place] [address] [place] #### 34309-9 #### [facility] CLIA [id number] [address] [place] [address] [place] Sodium [Moles/Vol] 133 mmol/L Low 136-144 [facility] Comment on above: Order Comment: Speci men Type: BLOOD SPECIMEN Ordering Facility: [facility] Address: [address] [place] [id number] Performed By: #### 2 4331-1 #### [facility] CLIA [id number] [address] [place] [address] [place] [facility] CLIA [id number] [address] [place] [address] [place] #### 63190-4 #### [facility] CLIA [id number] [address] [place] [address] [place] Urea nitrogen [Mass/Vol] 37 mg/dL High 7-21 [facility] Comment on above: Order Comment: Speci men Type: BLOOD SPECIMEN Ordering Facility: [facility] Address: [address] [place] [address] Performed By: #### 2 4331-1 #### [facility] CLIA [id number] [address] [place] [address] [place] [facility] CLIA [id number] [address] [place] [address] [place] #### 07907-1 #### [facility] CLIA [id number] [address] [place] [address] [place] NT-proBNP [facility] 12-01 Natriuretic peptide.B prohormone N-Terminal [Mass/Vol] 80412 pg/mL High <450 [facility] Comment on above: Order Comment: Speci men Type: BLOOD SPECIMEN Ordering Facility: [facility] Address: [address] [place], [place] [address] Performed By: #### 3 3762-6 #### [facility] CLIA [id number] [address] [place] [address] [place] Basic metabolic 2000 panelon 11-20-2024 Anion gap [Moles/Vol] 19 mmol/L High 8-15 [facility] Comment on above: Order Comment: Speci men Type: BLOOD SPECIMEN Ordering Facility: [facility] Address: [address] [place] [address] Performed By: #### 3 3762-6 #### [facility] CLIA [id number] [address] [place], [place] [address] [place] Calcium [Mass/Vol] 9.5 mg/dL Normal 8.5-10.2 [facility] Comment on above: Order Comment: Speci men Type: BLOOD SPECIMEN Ordering Facility: [facility] Address: [address] [place] [address] Performed By: #### 3 3762-6 #### [facility] CLIA [id number] [address] [place] [address] [place] Chloride [Moles/Vol] 98 mmol/L Normal 98-107 [facility] Comment on above: Order Comment: Speci men Type: BLOOD SPECIMEN Ordering Facility: [facility] Address: [address] [place] [address] Performed By: #### 3 3762-6 #### [facility] CLIA [id number] [address] [place] [address] [place] CO2 [Moles/Vol] 18 mmol/L Low 22-30 [facility] Comment on above: Order Comment: Speci men Type: BLOOD SPECIMEN Ordering Facility: [facility] Address: [address] [place], [place] [address] Performed By: #### 3 3762-6 #### [facility] CLIA [id number] [address] [place] [address] [place] Creatinine [Mass/Vol] 1.70 mg/dL High 0.58-0.96 [facility] Comment on above: Order Comment: Speci men Type: BLOOD SPECIMEN Ordering Facility: [facility] Address: [address] [place] [address] Performed By: #### 3 3762-6 #### [facility] CLIA [id number] [address] [place] [address] [place] Creatinine and Glomerular filtration rate.predicted panel (S/P/Bld) 30 mL/min/1.73m??? Low >=60 [facility] Comment on above: Order Comment: Annie ricci Type: BLOOD SPECIMEN Ordering Facility: [facility] Address: [address] [place] [address] Result Comment: Mira mated Glomerular Filtration Rate [...] GFR. Performed By: #### 3 3762-6 #### [facility] CLIA [id number] [address] [place] [address] [place] Glucose [Mass/Vol] 150 mg/dL High 74-99 [facility] Comment on above: Order Comment: Annie ricci Type: BLOOD SPECIMEN Ordering Facility: [facility] Address: [address] [place] [address] Result Comment: The [place] Diabetes Association (ADA) provides guidance for cutoff [...] Standards of Medical Care in Diabetes 2016, [place] [employer]. Diabetes Care. 2016.39(Suppl 1). Performed By: #### 3 3762-6 #### [facility] CLIA [id number] [address] [place] [address] [place] Potassium [Moles/Vol] 4.6 mmol/L Normal 3.7-5.1 [facility] Comment on above: Order Comment: Speci men Type: BLOOD SPECIMEN Ordering Facility: [facility] Address: [address] [place] [address] Performed By: #### 3 3762-6 #### [facility] CLIA [id number] [address] [place] [address] [place] Sodium [Moles/Vol] 135 mmol/L Low 136-144 [facility] Comment on above: Order Comment: Speci men Type: BLOOD SPECIMEN Ordering Facility: [facility] Address: [address] [place] [address] Performed By: #### 3 3762-6 #### [facility] CLIA [id number] [address] [place] [address] [place] Urea nitrogen [Mass/Vol] 37 mg/dL High 7-21 [facility] Comment on above: Order Comment: Speci men Type: BLOOD SPECIMEN Ordering Facility: [facility] Address: [address] [place] [address] Performed By: #### 3 3762-6 #### [facility] CLIA [id number] [address] [place] [address] [place] CNOVon 11-20-2024 CNOV Office Visit (JOHNNY ) BERTA SANCHES ([id number]) 1945 [facility] Date Time Provider Department 11/20/24 8:00 AM CARLA BURDICK During your visit today, we recorded the following information about you: Pulse Respiration Blood pressure Weight 84/minute 12/minute 154/62 65.2 kg Height 1.575 m Carla Burdick MD 11/20/2024 8:50 AM Signed [facility] SECTION [facility] REGIONAL CARDIOLOGY Cardiology ([facility]) [address] [facility] [id number] OUTPATIENT VISIT DATE PRIMARY CARE PHYSICIAN: Doreen Le [address] [place] [address] HISTORY OF PRESENT ILLNESS: Ms. 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 Lua PACEMAKER 10/2019 PART. HYSTERECTOMY W/WO RMVL OVARIES/TUBES 1974 h/o cervical cancer ovaries remain PAST SURGICAL HISTORY OF 1996 Aortic valve repair, Dr. Apodaca PAST SURGICAL HISTORY OF 2001 [address] Beltrán, [facility] PAST SURGICAL HISTORY OF 2015 clipping [...] Hypotension MEDICATIONS: (more content not included)... Normal [facility] NT-proBNP [facility] 11-20 Natriuretic peptide.B prohormone N-Terminal [Mass/Vol] 43776 pg/mL High <450 [facility] Comment on above: Order Comment: Speci men Type: BLOOD SPECIMEN Ordering Facility: [facility] Address: [address] [place] [address] Performed By: #### 3 3762-6 #### [facility] CLIA [id number] [address] [place] [address] [facility] CNPNon 11-14-2024 CNPN Telephone (CARDWS) BERTA SANCHES ([id number]) 1945 [address] [facility] Date Time Provider Department 11/14/24 CARLA [...] on Wednesday when I am there at [place]. Will plan to repeat blood work at [...] 02/26/2014 03/21/2022 Intracranial aneurysm [I67.1] 08/30/2015 10/05/2022 medical terminologist current use of antiarrhythmic medical*10/20/2016 09/12/2021 Prosthetic [...] Colovesical f (more content not included)... Normal [facility] Basic metabolic 2000 panelon 11-13-2024 Anion gap [Moles/Vol] 11 mmol/L Normal 8-15 [facility] Comment on above: Order Comment: Speci men Type: BLOOD SPECIMEN Ordering Facility: [facility] Address: [address] [place] [address] Performed By: #### 2 4331-1 #### [facility] CLIA [id number] [address] [place] [address] [place] [facility] [id number] [address] [place] [address] [place] #### 29431-4 #### [facility] CLIA [id number] [address] [place] [address] [place] Calcium [Mass/Vol] 9.3 mg/dL Normal 8.5-10.2 [facility] Comment on above: Order Comment: Speci men Type: BLOOD SPECIMEN Ordering Facility: [facility] Address: [address] [place] [address] Performed By: #### 2 4331-1 #### [facility] CLIA [id number] [address] [place] [address] [place] [facility] [id number] [address] [place] [address] [place] #### 81343-2 #### [facility] CLIA [id number] [address] [place] [address] [place] Chloride [Moles/Vol] 98 mmol/L Normal 98-107 [facility] Comment on above: Order Comment: Speci men Type: BLOOD SPECIMEN Ordering Facility: [facility] Address: [address] [place] [id number] Performed By: #### 2 4331-1 #### [facility] CLIA [id number] [address] [place] [address] [place] [facility] CLIA [id number] [address] [place] [address] [place] #### 28822-0 #### [facility] CLIA [id number] [address] [place] [address] [place] CO2 [Moles/Vol] 26 mmol/L Normal 22-30 [facility] Comment on above: Order Comment: Speci men Type: BLOOD SPECIMEN Ordering Facility: [facility] Address: [address] [id number] Performed By: #### 2 4331-1 #### [facility] CLIA [id number] [address] [place] [address] [place] [facility] CLIA [id number] [address] [place] [address] [place] #### 91121-1 #### [facility] CLIA [id number] [address] [place] [address] [place] Creatinine [Mass/Vol] 1.82 mg/dL High 0.58-0.96 [facility] Comment on above: Order Comment: Speci men Type: BLOOD SPECIMEN Ordering Facility: [facility] Address: [address] [place] [address] Performed By: #### 2 4331-1 #### [facility] CLIA [id number] [address] [place], [place] [address] [place] [facility] CLIA [id number] [address] [place] [address] [place] #### 17989-4 #### [facility] CLIA [id number] [address] [place] [address] [place] Creatinine and Glomerular filtration rate.predicted panel (S/P/Bld) 28 mL/min/1.73m??? Low >=60 [facility] Comment on above: Order Comment: Annie ricci Type: BLOOD SPECIMEN Ordering Facility: [facility] Address: [address] [place] [address] Result Comment: Mira mated Glomerular Filtration Rate [...] GFR. Performed By: #### 2 4331-1 #### [facility] CLIA [id number] [address] [place] [address] [place] [facility] CLIA [id number] [address] [place] [address] [place] #### 83749-5 #### [facility] CLIA [id number] [address] [place] [address] [place] Glucose [Mass/Vol] 127 mg/dL High 74-99 [facility] Comment on above: Order Comment: Annie ricci Type: BLOOD SPECIMEN Ordering Facility: [facility] Address: [address] [place] [address] Result Comment: The [place] Diabetes Association (ADA) provides guidance for cutoff [...] Standards of Medical Care in Diabetes 2016, [place] [employer]. Diabetes Care. 2016.39(Suppl 1). Performed By: #### 2 4331-1 #### [facility] CLIA [id number] [address] [place] [address] [place] [facility] CLIA [id number] [address] [place] [address] [place] #### 73647-1 #### [facility] CLIA [id number] [address] [place] [address] [place] Potassium [Moles/Vol] 4.0 mmol/L Normal 3.7-5.1 [facility] Comment on above: Order Comment: Speci men Type: BLOOD SPECIMEN Ordering Facility: [facility] Address: [address] [place] [address] Performed By: #### 2 4331-1 #### [facility] CLIA [id number] [address] [place] [address] [place] [facility] [id number] [address] [place] [address] [place] #### 74059-7 #### [facility] CLIA [id number] [address] [place] [address] [place] Sodium [Moles/Vol] 135 mmol/L Low 136-144 [facility] Comment on above: Order Comment: Speci men Type: BLOOD SPECIMEN Ordering Facility: [facility] Address: [address] [place] [address] Performed By: #### 2 4331-1 #### [facility] CLIA [id number] [address] [place] [address] [place] [facility] [id number] [address] [place] [address] [place] #### 78886-2 #### [facility] CLIA [id number] [address] [place] [address] [place] Urea nitrogen [Mass/Vol] 41 mg/dL High 7-21 [facility] Comment on above: Order Comment: Speci men Type: BLOOD SPECIMEN Ordering Facility: [facility] Address: [address] [place] [address] Performed By: #### 2 4331-1 #### [facility] CLIA [id number] [address] [place] [address] [place] [facility] [id number] [address] [place] [address] [place] #### 73400-6 #### [facility] CLIA [id number] [address] [place] [address] [place] NT-proBNP [facility] 11-13 Natriuretic peptide.B prohormone N-Terminal [Mass/Vol] 20058 pg/mL High <450 [facility] Comment on above: Order Comment: Speci men Type: BLOOD SPECIMEN Ordering Facility: [facility] Address: [address] [place] [address] Performed By: #### 2 4331-1 #### [facility] CLIA [id number] [address] [place] [address] [place] [facility] CLIA [id number] [address] [place] [address] [place] #### 13256-4 #### [facility] CLIA [id number] [address] [place] [address] [place] CNOVon 11-06-2024 CNOV Office Visit (CARDWS ) BERTA SANCHES ([id number]) 1945 [place] Date Time Provider Department 11/06/24 2:40 PM CARLA BURDICK During your visit today, we recorded the following information about you: Pulse Respiration Blood pressure Weight 68/minute 12/minute 134/54 68.9 kg Height 1.575 m Carla Burdick MD 11/06/2024 5:01 PM Signed [facility] SECTION OF REGIONAL CARDIOLOGY Cardiology ([facility]) [address] [facility] [id number] OUTPATIENT VISIT DATE 11/06/2024 PRIMARY CARE PHYSICIAN: Doreen Le [address] [place] [address] HISTORY OF PRESENT ILLNESS: Ms. Sanches is [...] admitted to the hospital while vacationing in [place]. She underwent SMA stent placement. This was followed by a long admission for decompensated congestive heart failure in the setting of the renal insufficiency. 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 Lua PACEMAKER 10/2019 PART. HYSTERECTOMY W/WO RMVL OVARIES/TUBES 1973 h/o cervical cancer ovaries remain PAST SURGICAL HISTORY OF 1996 Aortic valve repair, Dr. Apodaca PAST SURGICAL HISTORY OF 2001 [address] Beltrán, [facility] PAST SURGICAL HISTORY OF 2015 clipping [...] Allergen Reactions (more content not included)... Normal [facility] Basic metabolic 2000 panelon 11-03-2024 Anion gap [Moles/Vol] 11 mmol/L 8 - 15 mmol/L [facility] Calcium [Mass/Vol] 9.1 mg/dL 8.5 - 10. 2 mg/dL [facility] Chloride [Moles/Vol] 84 mmol/L Low 98 - 10 7 mmol/L [facility] CO2 [Moles/Vol] 27 mmol/L 22 - 30 mmol/L [facility] Creatinine [Mass/Vol] 2.36 mg/dL High 0.58 - 0.96 mg/dL [facility] GFR/1.73 sq M.predicted among non-blacks MDRD (S/P/Bld) [Vol rate/Area] 20 mL/min/{1.73_m2} Low - PINF [facility] Comment on above: Estimated Glomerular [...] 114 mg/dL High 74 - 99 mg/dL [facility] Comment on above: The [place] Diabete s Association (ADA) provides guidance for [...] Standards of Medical Care in Diabetes 2016, [place] [employer]. Diabetes Care. 2016.39(Suppl 1). Interpretation and review of laboratory results Abnormal [facility] Potassium [Moles/Vol] 4.3 mmol/L 3.7 - 5.1 mmol/L [facility] Sodium [Moles/Vol] 122 mmol/L Low 136 - 144 mmol/L [facility] Urea nitrogen [Mass/Vol] 57 mg/dL High 7 - 21 mg/dL [facility] Anion gap [Moles/Vol] 11 mmol/L Normal 8-15 [facility] Comment on above: Order Comment: Annie ricci Type: BLOOD SPECIMEN Ordering Facility: [facility] Address: [address] [place] [address] Performed By: #### 2 132-9, 2283-8 #### [facility] CLIA [id number] [address] [place] [address] [place] Calcium [Mass/Vol] 9.1 mg/dL Normal 8.5-10.2 [facility] Comment on above: Order Comment: Annie ricci Type: BLOOD SPECIMEN Ordering Facility: [facility] Address: [address] [place] [address] Performed By: #### 2 132-9, 2283-8 #### [facility] CLIA [id number] [address] [place] [address] [place] Chloride [Moles/Vol] 84 mmol/L Low 98-107 [facility] Comment on above: Order Comment: Annie ricci Type: BLOOD SPECIMEN Ordering Facility: [facility] Address: [address] [place] [address] Performed By: #### 2 132-9, 2283-8 #### [facility] CLIA [id number] [address] [place] [address] [place] CO2 [Moles/Vol] 27 mmol/L Normal 22-30 [facility] Comment on above: Order Comment: Annie ricci Type: BLOOD SPECIMEN Ordering Facility: [facility] Address: [address] [place] [address] Performed By: #### 2 132-9, 2283-8 #### [facility] CLIA [id number] [address] [place] [address] [place] Creatinine [Mass/Vol] 2.36 mg/dL High 0.58-0.96 [facility] Comment on above: Order Comment: Annie ricci Type: BLOOD SPECIMEN Ordering Facility: [facility] Address: [address] [place] [address] Performed By: #### 2 132-9, 2283-8 #### [facility] CLIA [id number] [address] Creatinine and Glomerular filtration rate.predicted panel (S/P/Bld) 20 mL/min/1.73m??? Low >=60 [facility] Comment on above: Order Comment: Annie ricci Type: BLOOD SPECIMEN Ordering Facility: [facility] Address: [address] [place] [address] Result Comment: Mira mated Glomerular Filtration Rate [...] actual GFR. Performed By: #### 2 132-9, 2283-8 #### [facility] CLIA [id number] [address] [place] Glucose [Mass/Vol] 114 mg/dL High 74-99 [facility] Comment on above: Order Comment: Annie ricci Type: BLOOD SPECIMEN Ordering Facility: [facility] Address: [address] [place] [address] Result Comment: The [place] Diabetes Association (ADA) provides guidance for cutoff [...] Standards of Medical Care in Diabetes 2016, [place] [employer]. Diabetes Care. 2016.39(Suppl 1). Performed By: #### 2 132-9, 2283-8 #### [facility] CLIA [id number] [address] Potassium [Moles/Vol] 4.3 mmol/L Normal 3.7-5.1 [facility] Comment on above: Order Comment: Annie ricci Type: BLOOD SPECIMEN Ordering Facility: [facility] Address: [address] [place] [address] Performed By: #### 2 132-9, 2283-8 #### [facility] CLIA [id number] [address] Sodium [Moles/Vol] 122 mmol/L Low 136-144 [facility] Comment on above: Order Comment: Annie ricci Type: BLOOD SPECIMEN Ordering Facility: [facility] Address: [address] [place] [address] Performed By: #### 2 132-9, 2283-8 #### [facility] CLIA [id number] [address] Urea nitrogen [Mass/Vol] 57 mg/dL High 7-21 [facility] Comment on above: Order Comment: Annie ricci Type: BLOOD SPECIMEN Ordering Facility: [facility] Address: [address] [place] [address] Performed By: #### 2 132-9, 2283-8 #### [facility] CLIA [id number] [address] [facility] CNOVon 11-03-2024 CNOV Office Visit ([facility] ) BERTA SANCHES ([id number]) 1945 [place] Date Time Provider Department 11/03/24 9:00 AM ALBIN GU [facility] During your visit today, we recorded the following information about you: Pulse Blood pressure Weight 66/minute 121/44 66.7 kg lAbin Gu APRN.CNP 11/03/2024 10:04 AM Addendum Continue [...] or concern, you can call me at [phone]. Albin Gu APRN.CNP 11/03/2024 10:28 AM Signed [facility] [place] [facility] OUTPATIENT VISIT DATE [...] and was worried about traveling home to [place] in a few days. Discussed with her taking lasix as it was prescribed. As her spironolactone was stopped, did advise patient restart this at 25 mg once a day for four days only. She was instructed to call office in a week to review symptoms. On 10/15, patient presented back to [facility] for gastrointestinal bleed. She had a colonoscopy [...] and entresto. The patient wished to leave [place] so she could return to [place]. Cardiology and Pulmonary agreed with discharge. Today, the patient reports feeling okay. Since she was hospitalized in [place], she has not felt that well. Feels very tired. Denies shortness of breath. Was seen by her PCP on Wednesday who suggested patient be admitted due to significant worsening in kidney function however, the patient and declined admission as she just returned home the day before. States she was started on bumex drip and then received oral bumex while in [place] and noted a worsening in kidney function. [...] roasted chicken, asparagus and salad. While in [place], she was very conscious about her diet. She weighed every day. 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 Wearing lidocaine patch over site to right side of neck as she mentions havi (more content not included)... Normal [facility] 11-03-2024 [facility] Telephone ([facility]) BERTA SANCHES ([id number]) 1945 [facility] Date Time Provider Department 11/03/24 ALBIN GU [facility] During your visit today, we recorded the following information about you: Albin Gu APRN.[employer]CH [employer] 11/03/2024 12:49 PM Signed Called patient to [...] agree with plan of care. Albin Gu APRN.[facility] Allergies As of Date: 11/03/2024 Noted [...] 02/26/2014 03/21/2022 Intracranial aneurysm [I67.1] 08/30/2015 10/05/2022 medical terminologist current use of antiarrhythmic medical*10/20/2016 09/12/2021 Prosthetic [...] (more content not included)... Normal [facility] CBC W Auto Differential pane l (Bld)on 10-31-2024 Basophils (Bld) [#/Vol] 0.06 10*3/uL [facility] Basophils/100 WBC (Bld) 1 % C [facility] Differential cell count method Nom (Bld) Auto [facility] Eosinophils (Bld) [#/Vol] 0.13 10*3/uL [facility] Eosinophils/100 WBC (Bld) 2.1 % [facility] Erythrocyte distribution width (RBC) [Ratio] 16.8 % High 11.5 - 15.0 % [facility] Hematocrit (Bld) [Volume fraction] 26.3 % Low 36.0 - 46.0 % [facility] Hemoglobin (Bld) [Mass/Vol] 8.7 g/dL Low 11.5 - 15.5 g/dL [facility] Immature granulocytes (Bld) [#/Vol] 0.04 10*3/uL [facility] Immature granulocytes/100 WBC (Bld) 0.6 % [facility] Interpretation and review of laboratory results Abnormal [facility] Lymphocytes (Bld) [#/Vol] 1.29 10*3/uL [facility] Lymphocytes/100 WBC (Bld) 20.6 % [facility] MCH (RBC) [Entitic mass] 31.6 pg 26.0 - 34.0 pg [facility] MCHC (RBC) [Mass/Vol] 33.1 g/dL 30.5 - 36.0 g/dL [facility] MCV (RBC) [Entitic vol] 95.6 fL 80.0 - 100.0 fL [facility] Monocytes (Bld) [#/Vol] 0.82 10*3/uL [facility] Monocytes/100 WBC (Bld) 13.1 % [facility] Neutrophils (Bld) [#/Vol] 3.92 10*3/uL [facility] Neutrophils/100 WBC (Bld) 62.6 % [facility] Nucleated RBC (Bld) [#/Vol] NINF [facility] Nucleated RBC/100 WBC (Bld) [Ratio] 0 % /100 WBC [facility] Platelet mean volume (Bld) [Entitic vol] 9.5 fL 9.0 - 12.7 fL [facility] Platelets (Bld) [#/Vol] 202 10*3/uL [facility] RBC (Bld) [#/Vol] 2.75 10*6/uL Low 3.90 - 5.2 0 m/uL [facility] WBC (Bld) [#/Vol] 6.26 10*3/uL [facility] [facility] Basophils (Bld) [#/Vol] 0.06 10*3/uL Normal <0.11 [facility] Comment on above: Order Comment: Speci men Type: BLOOD SPECIMEN Ordering Facility: [facility] Address: [address] [place] [address] Performed By: #### 2 4331-1 #### [facility] CLIA [id number] [address] [place] [address] [place] [facility] CLIA [id number] [address] [place] [address] [place] #### 91927-8 #### [facility] CLIA [id number] [address] [place] [address] [place] Basophils/100 WBC (Bld) 1.0 % [facility] Comment on above: Order Comment: Speci men Type: BLOOD SPECIMEN Ordering Facility: [facility] Address: [address] [place] [address] Performed By: #### 2 4331-1 #### [facility] CLIA [id number] [address] [place] [address] [place] [facility] CLIA [id number] [address] [place] [address] [place] #### 10301-2 #### [facility] CLIA [id number] [address] [place] [address] [place] Differential cell count method Nom (Bld) Auto Normal [facility] Comment on above: Order Comment: Speci men Type: BLOOD SPECIMEN Ordering Facility: [facility] Address: [address] [place] [address] Performed By: #### 2 4331-1 #### [facility] CLIA [id number] [address] [place] [address] [place] [facility] CLIA [id number] [address] [place] [address] [place] #### 11350-6 #### [facility] CLIA [id number] [address] [place] [address] [place] Eosinophils (Bld) [#/Vol] 0.13 10*3/uL Normal <0.46 [facility] Comment on above: Order Comment: Speci men Type: BLOOD SPECIMEN Ordering Facility: [facility] Address: [address] [place] [address] Performed By: #### 2 4331-1 #### [facility] CLIA [id number] [address] [place] [address] [place] [facility] CLIA [id number] [address] [place] [address] [place] #### 57707-4 #### [facility] CLIA [id number] [address] [place] [address] [place] Eosinophils/100 WBC (Bld) 2.1 % Normal [facility] Comment on above: Order Comment: Speci men Type: BLOOD SPECIMEN Ordering Facility: [facility] Address: [address] [place], [place] [address] Performed By: #### 2 4331-1 #### [facility] CLIA [id number] [address] [place] [address] [place] [facility] CLIA [id number] [address] [place] [address] [place] #### 84915-5 #### [facility] CLIA [id number] [address] [place] [address] [place] Erythrocyte distribution width (RBC) [Ratio] 16.8 % High 11.5-15.0 [facility] Comment on above: Order Comment: Speci men Type: BLOOD SPECIMEN Ordering Facility: [facility] Address: [address] [place] [address] Performed By: #### 2 4331-1 #### [facility] CLIA [id number] [address] [place] [address] [place] [facility] [id number] [address] [place] [address] [place] #### 59022-2 #### [facility] CLIA [id number] [address] [place] [address] [place] Hematocrit (Bld) [Volume fraction] 26.3 % Low 36.0-46.0 [facility] Comment on above: Order Comment: Speci men Type: BLOOD SPECIMEN Ordering Facility: [facility] Address: [address] [place], [place] [address] Performed By: #### 2 4331-1 #### [facility] CLIA [id number] [address] [place] [address] [place] [facility] [id number] [address] [place] [address] [place] #### 06973-3 #### [facility] CLIA [id number] [address] [place], [place] [address] [place] Hemoglobin (Bld) [Mass/Vol] 8.7 g/dL Low 11.5-15.5 [facility] Comment on above: Order Comment: Speci men Type: BLOOD SPECIMEN Ordering Facility: [facility] Address: [address] [place] [address] Performed By: #### 2 4331-1 #### [facility] CLIA [id number] [address] [place] [address] [place] [facility] CLIA [id number] [address] [place] [address] [place] #### 82939-0 #### [facility] CLIA [id number] [address] [place] [address] [place] Immature granulocytes (Bld) [#/Vol] 0.04 10*3/uL Normal <0.10 [facility] Comment on above: Order Comment: Speci men Type: BLOOD SPECIMEN Ordering Facility: [facility] Address: [address] [place] [address] Performed By: #### 2 4331-1 #### [facility] CLIA [id number] [address] [place] [address] [place] [facility] CLIA [id number] [address] [place] [address] [place] #### 62575-8 #### [facility] CLIA [id number] [address] [place] [address] [place] Immature granulocytes/100 WBC (Bld) 0.6 % Normal [facility] Comment on above: Order Comment: Speci men Type: BLOOD SPECIMEN Ordering Facility: [facility] Address: [address] [place] [address] Performed By: #### 2 4331-1 #### [facility] CLIA [id number] [address] [place] [address] [place] [facility] CLIA [id number] [address] [place] [address] [place] #### 13788-8 #### [facility] CLIA [id number] [address] [place] [address] [place] Lymphocytes (Bld) [#/Vol] 1.29 10*3/uL Normal 1.00-4.00 [facility] Comment on above: Order Comment: Speci men Type: BLOOD SPECIMEN Ordering Facility: [facility] Address: [address] [place] [address] Performed By: #### 2 4331-1 #### [facility] CLIA [id number] [address] [place] [address] [place] [facility] [id number] [address] [place] [address] [place] #### 01503-2 #### [facility] CLIA [id number] [address] [place] [address] [place] Lymphocytes/100 WBC (Bld) 20.6 % Normal [facility] Comment on above: Order Comment: Speci men Type: BLOOD SPECIMEN Ordering Facility: [facility] Address: [address] [place] [address] Performed By: #### 2 4331-1 #### [facility] CLIA [id number] [address] [place] [address] [place] [facility] [id number] [address] [place] [address] [place] #### 81428-4 #### [facility] CLIA [id number] [address] [place] [address] [place] MCH (RBC) [Entitic mass] 31.6 pg Normal 26.0-34.0 [facility] Comment on above: Order Comment: Speci men Type: BLOOD SPECIMEN Ordering Facility: [facility] Address: [address] [place] [id number] Performed By: #### 2 4331-1 #### [facility] CLIA [id number] [facility] [place] [address] [place] [facility] CLIA [id number] [address] [place] [address] [place] #### 78220-4 #### [facility] CLIA [id number] [address] [place] [address] [place] MCHC (RBC) [Mass/Vol] 33.1 g/dL Normal 30.5-36.0 [facility] Comment on above: Order Comment: Speci men Type: BLOOD SPECIMEN Ordering Facility: [facility] Address: [address] [place] [address] Performed By: #### 2 4331-1 #### [facility] CLIA [id number] [address] [place] [address] [place] [facility] CLIA [id number] [address] [place] [address] [place] #### 44947-1 #### [facility] CLIA [id number] [address] [place] [address] [place] MCV (RBC) [Entitic vol] 95.6 fL Normal 80.0-100.[address] [facility] Comment on above: Order Comment: Speci men Type: BLOOD SPECIMEN Ordering Facility: [facility] Address: [address] [place] [id number] Performed By: #### 2 4331-1 #### [facility] CLIA [id number] [address] [place] [address] [place] [facility] CLIA [id number] [address] [place] [address] [place] #### 58495-9 #### [facility] CLIA [id number] [address] [place] [address] [place] Monocytes (Bld) [#/Vol] 0.82 10*3/uL Normal <0.87 [facility] Comment on above: Order Comment: Speci men Type: BLOOD SPECIMEN Ordering Facility: [facility] Address: [address] [place], [place] [address] Performed By: #### 2 4331-1 #### [facility] CLIA [id number] [address] [place] [address] [place] [facility] CLIA [id number] [place] [address] [place] #### 40502-6 #### [facility] CLIA [id number] [address] [place] [address] [place] Monocytes/100 WBC (Bld) 13.1 % Normal [facility] Comment on above: Order Comment: Speci men Type: BLOOD SPECIMEN Ordering Facility: [facility] Address: [address] [place], [place] [address] Performed By: #### 2 4331-1 #### [facility] CLIA [id number] [address] [place] [address] [place] [facility] [id number] [address] [place] [address] [place] #### 15528-3 #### [facility] CLIA [id number] [address] [place], [place] [address] [place] Neutrophils (Bld) [#/Vol] 3.92 10*3/uL Normal 1.45-7.50 [facility] Comment on above: Order Comment: Speci men Type: BLOOD SPECIMEN Ordering Facility: [facility] Address: [address] [place], [place] [address] Performed By: #### 2 4331-1 #### [facility] CLIA [id number] [address] [place], [place] [address] [place] [facility] CLIA [id number] [address] [place] [address] [place] #### 07338-1 #### [facility] CLIA [id number] [address] [place] [address] [place] Neutrophils/100 WBC (Bld) 62.6 % Normal [facility] Comment on above: Order Comment: Speci men Type: BLOOD SPECIMEN Ordering Facility: [facility] Address: [address] [place] [address] Performed By: #### 2 4331-1 #### [facility] CLIA [id number] [address] [place] [address] [place] [facility] [id number] [place] [address] [place] #### 93816-9 #### [facility] CLIA [id number] [address] [place] [address] [place] Nucleated RBC (Bld) [#/Vol] 10*3/uL Normal <0.01 [facility] Comment on above: Order Comment: Speci men Type: BLOOD SPECIMEN Ordering Facility: [facility] Address: [address] [place] [address] Performed By: #### 2 4331-1 #### [facility] CLIA [id number] [address] [place] [address] [place] [facility] CLIA [id number] [address] [place] [address] [place] #### 09658-4 #### [facility] CLIA [id number] [address] [place] [address] [place] Nucleated RBC/100 WBC (Bld) [Ratio] 0.0 /100 WBC Normal [facility] Comment on above: Order Comment: Speci men Type: BLOOD SPECIMEN Ordering Facility: [facility] Address: [address] [place] [address] Performed By: #### 2 4331-1 #### [facility] CLIA [id number] [address] [place] [address] [place] [facility] CLIA [id number] [address] [place] [address] [place] #### 99479-5 #### [facility] CLIA [id number] [address] [place] [address] [place] Platelet mean volume (Bld) [Entitic vol] 9.5 fL Normal 9.0-12.7 [facility] Comment on above: Order Comment: Speci men Type: BLOOD SPECIMEN Ordering Facility: [facility] Address: [address] [place] [address] Performed By: #### 2 4331-1 #### [facility] CLIA [id number] [address] [place] [address] [place] [facility] CLIA [id number] [address] [place] [address] [place] #### 33414-0 #### [facility] CLIA [id number] [address] [place] [address] [place] Platelets (Bld) [#/Vol] 202 10*3/uL Normal 150-400 [facility] Comment on above: Order Comment: Speci men Type: BLOOD SPECIMEN Ordering Facility: [facility] Address: [address] [place] [address] Performed By: #### 2 4331-1 #### [facility] CLIA [id number] [address] [place] [address] [place] [facility] CLIA [id number] [address] [place] [address] [place] #### 14628-7 #### [facility] CLIA [id number] [address] [place] [address] [place] RBC (Bld) [#/Vol] 2.75 10*6/uL Low 3.90-5.20 [facility] Comment on above: Order Comment: Speci men Type: BLOOD SPECIMEN Ordering Facility: [facility] Address: [address] [place] [address] Performed By: #### 2 4331-1 #### [facility] CLIA [id number] [address] [place] [address] [place] [facility] [id number] [address] [place] [address] [place] #### 34106-3 #### [facility] CLIA [id number] [address] [place] [address] [place] WBC (Bld) [#/Vol] 6.26 10*3/uL Normal 3.70-11.00 [facility] Comment on above: Order Comment: Speci men Type: BLOOD SPECIMEN Ordering Facility: [facility] Address: [address] [place] [address] Performed By: #### 2 4331-1 #### [facility] CLIA [id number] [address] [place] [address] [place] [facility] CLIA [id number] [address] [place] [address] [place] #### 89457-6 #### [facility] CLIA [id number] [address] [place] [address] [place] CNOVon 10-31-2024 CNOV Office Visit (FAMPWS ) BERTA SANCHES ([id number]) 1945 F [place] Date Time Provider Department 10/31/24 11:00 AM SHAYE DOMINGO During your visit today, we recorded the following information about you: Pulse Blood pressure Weight 84/minute 147/68 64.4 kg Shaye Domingo, 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 Acute Mesenteric Ischemia: - Initially admitted to [facility] on 10/02/2024. - Underwent femoral ultrasound-guided angiogram with angioplasty and stenting of the SMA. - Required CRRT for MONIQUE post-op. - Developed AFib with RVR post-op. - Discharged after 23-day hospitalization. Acute on Chronic Heart Failure: - Given IV Lasix during initial admission. 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 Lua PACEMAKER 10/2019 PART. HYSTERECTOMY W/WO RMVL OVARIES/TUBES 1973 h/o cervical cancer ovaries remain PAST SURGICAL HISTORY OF 1996 Aortic valve repair, Dr. Apodaca PAST SURGICAL HISTORY OF 2001 [address] Beltrán, [facility] PAST SURGICAL HISTORY OF 2016 clipping [...] mcg epi (more content not included)... Normal [facility] metabolic 2000 panelOrdered By: Shala Segura on 10-31-2024 Albumin [Mass/Vol] 4 g/dL 3.9 - 4.9 g/dL [facility] ALP [Catalytic activity/Vol] 81 U/L 34 - 123 U/L [facility] ALT [Catalytic activity/Vol] 10 U/L 7 - 38 U/L [facility] Anion gap [Moles/Vol] 11 mmol/L 8 - 15 mmol/L [facility] AST [Catalytic activity/Vol] 19 U/L 13 - 35 U/L [facility] Bilirubin [Mass/Vol] 1 mg/dL 0.2 - 1 .3 mg/dL [facility] Calcium [Mass/Vol] 9.3 mg/dL 8.5 - 10. 2 mg/dL [facility] Chloride [Moles/Vol] 83 mmol/L Low 98 - 10 7 mmol/L [facility] CO2 [Moles/Vol] 29 mmol/L 22 - 30 mmol/L [facility] Creatinine [Mass/Vol] 2.5 mg/dL High 0.58 - 0.96 mg/dL [facility] GFR/1.73 sq M.predicted among non-blacks MDRD (S/P/Bld) [Vol rate/Area] 19 mL/min/{1.73_m2} Low - PINF [facility] Comment on above: Estimated Glomerular [...] 138 mg/dL High 74 - 99 mg/dL [facility] Comment on above: The [place] Diabete [employer] Association (ADA) provides guidance for [...] Standards of Medical Care in Diabetes 2016, [place] Diabetes Association. Diabetes Care. 2016.39(Suppl 1). Interpretation and review of laboratory results Abnormal [facility] Potassium [Moles/Vol] 3.8 mmol/L 3.7 - 5.1 mmol/L [facility] Protein [Mass/Vol] 7 g/dL 6.3 - 8.0 g/dL [facility] Sodium [Moles/Vol] 123 mmol/L Low 136 - 144 mmol/L [facility] Urea nitrogen [Mass/Vol] 53 mg/dL High 7 - 21 mg/dL [facility] Comprehensive metabolic 2000 panelon 10-31-2024 Albumin [Mass/Vol] 4.0 g/dL Normal 3.9-4.9 [facility] Comment on above: Order Comment: Annie ricci Type: BLOOD SPECIMEN Ordering Facility: [facility] Address: [address] [place] [address] Performed By: #### 3 3762-6 #### [facility] CLIA [id number] [address] [place] [address] [place] ALP [Catalytic activity/Vol] 81 U/L Normal 34-123 [facility] Comment on above: Order Comment: Kunali men Type: BLOOD SPECIMEN Ordering Facility: [facility] Address: [address] [place] [address] Performed By: #### 3 3762-6 #### [facility] CLIA [id number] [address] [place] [address] [place] ALT [Catalytic activity/Vol] 10 U/L Normal 7-38 [facility] Comment on above: Order Comment: Speci men Type: BLOOD SPECIMEN Ordering Facility: [facility] Address: [address] [place], [place] [address] Performed By: #### 3 3762-6 #### [facility] CLIA [id number] [address] [place], [place] [address] [place] Anion gap [Moles/Vol] 11 mmol/L Normal 8-15 [facility] Comment on above: Order Comment: Speci men Type: BLOOD SPECIMEN Ordering Facility: [facility] Address: [address] [place] [address] Performed By: #### 3 3762-6 #### [facility] CLIA [id number] [address] [place] [address] [place] AST [Catalytic activity/Vol] 19 U/L Normal 13-35 [facility] Comment on above: Order Comment: Speci men Type: BLOOD SPECIMEN Ordering Facility: [facility] Address: [address] [place], [place] [address] Performed By: #### 3 3762-6 #### [facility] CLIA [id number] [address] [place], [place] [address] [place] Bilirubin [Mass/Vol] 1.0 mg/dL Normal 0.2-1.3 [facility] Comment on above: Order Comment: Speci men Type: BLOOD SPECIMEN Ordering Facility: [facility] Address: [address] [place], [place] [address] Performed By: #### 3 3762-6 #### [facility] CLIA [id number] [address] [place], [place] [address] [place] Calcium [Mass/Vol] 9.3 mg/dL Normal 8.5-10.2 [facility] Comment on above: Order Comment: Speci men Type: BLOOD SPECIMEN Ordering Facility: [facility] Address: [address] [place] [address] Performed By: #### 3 3762-6 #### [facility] CLIA [id number] [address] [place] [address] [place] Chloride [Moles/Vol] 83 mmol/L Low 98-107 [facility] Comment on above: Order Comment: Speci men Type: BLOOD SPECIMEN Ordering Facility: [facility] Address: [address] [place] [address] Performed By: #### 3 3762-6 #### [facility] CLIA [id number] [address] [place] [address] [place] CO2 [Moles/Vol] 29 mmol/L Normal 22-30 [facility] Comment on above: Order Comment: Speci men Type: BLOOD SPECIMEN Ordering Facility: [facility] Address: [address] [place] [address] Performed By: #### 3 3762-6 #### [facility] CLIA [id number] [address] [place] [address] [place] Creatinine [Mass/Vol] 2.50 mg/dL High 0.58-0.96 [facility] Comment on above: Order Comment: Speci men Type: BLOOD SPECIMEN Ordering Facility: [facility] Address: [address] [place] [address] Performed By: #### 3 3762-6 #### [facility] CLIA [id number] [address] [place] [address] [place] Creatinine and Glomerular filtration rate.predicted panel (S/P/Bld) 19 mL/min/1.73m??? Low >=60 [facility] Comment on above: Order Comment: Speci men Type: BLOOD SPECIMEN Ordering Facility: [facility] Address: [address] [place] [address] Result Comment: Mira mated Glomerular Filtration Rate [...] GFR. Performed By: #### 3 3762-6 #### [facility] CLIA [id number] [address] [place] [address] [place] Glucose [Mass/Vol] 138 mg/dL High 74-99 [facility] Comment on above: Order Comment: Annie ricci Type: BLOOD SPECIMEN Ordering Facility: [facility] Address: [address] [place] [address] Result Comment: The [place] Diabetes Association (ADA) provides guidance for cutoff [...] Standards of Medical Care in Diabetes 2016, [place] [employer]. Diabetes Care. 2016.39(Suppl 1). Performed By: #### 3 3762-6 #### [facility] CLIA [id number] [address] [place] [address] [place] Potassium [Moles/Vol] 3.8 mmol/L Normal 3.7-5.1 [facility] Comment on above: Order Comment: Annie ricci Type: BLOOD SPECIMEN Ordering Facility: [facility] Address: [address] [place] [address] Performed By: #### 3 3762-6 #### [facility] CLIA [id number] [address] [place], [place] [address] [place] Protein [Mass/Vol] 7.0 g/dL Normal 6.3-8.0 [facility] Comment on above: Order Comment: Speci men Type: BLOOD SPECIMEN Ordering Facility: [facility] Address: [address] [place], [place] [address] Performed By: #### 3 3762-6 #### [facility] CLIA [id number] [address] [place], [place] [address] [place] Sodium [Moles/Vol] 123 mmol/L Low 136-144 [facility] Comment on above: Order Comment: Speci men Type: BLOOD SPECIMEN Ordering Facility: [facility] Address: [address] [place], [place] [address] Performed By: #### 3 3762-6 #### [facility] CLIA [id number] [address] [place], [place] [address] [place] Urea nitrogen [Mass/Vol] 53 mg/dL High 7-21 [facility] Comment on above: Order Comment: Speci men Type: BLOOD SPECIMEN Ordering Facility: [facility] Address: [address] [place], [place] [address] Performed By: #### 3 3762-6 #### [facility] CLIA [id number] [address] [place], [place] [address] [place] MAGNESIUMon 10-31-2024 Magnesium [Mass/Vol] 2 mg/dL 1.7 - 2 .3 mg/dL [facility] Magnesium SerPl-mCncon 10-31 Magnesium [Mass/Vol] 2.0 mg/dL Normal 1.7-2.3 [facility] Comment on above: Order Comment: Speci men Type: BLOOD SPECIMEN Ordering Facility: [facility] Address: [address] [place], [place] [address] Performed By: #### 2 4331-1 #### [facility] CLIA [id number] [address] [address] [place] [facility] CLIA [id number] [address] [place] [address] [place] #### 84679-8 #### [facility] CLIA [id number] [address] [place] [address] [place] Magnesium [Mass/Vol]on 10-31 Interpretation and review of laboratory results Normal [facility] No Panel InformationOrdered By: Shala Segura on 10-31-2024 [facility] Connie 10-12-2024 [facility] Telephone ([facility]) BERTA SANCHES ([id number]) 1945 F [facility] Date Time Provider Department 10/12/24 ALBIN GU [facility] During your visit today, we recorded the following information about you: Albin Gu APRN.CNP 10/12/2024 12:36 PM Signed Patient called to schedule appt in [facility]. Patient also mentions she is currently in [place]. She was admitted to the hospital for [...] 02/26/2014 03/21/2022 Intracranial aneurysm [I67.1] 08/30/2015 10/05/2022 medical terminologist current use of antiarrhythmic medical*10/20/2016 09/12/2021 Prosthetic [...] [N32.1] 06/15/2019 (more content not included)... [facility] BERTA SANCHES ([id number]) 1945 F [place] Date Time Provider Department 07/31/24 MELIDA KOO [facility] During your visit today, we recorded the following information about you: Melida Koo APRN.BRANCH LEAD 07/31/2024 12:00 PM Signed Pt called to request refill for KDur as she has run out of prescription. She states that she is currently in [place] and will be in [place] until October. [facility] called in [place], [place]. Spoke with Pharmacist on duty. Rx for KDur 10 meq PO daily given verbally #90 with no refills. Melida Koo APRN.BRANCH LEAD Allergies As of Date: 07/31/2024 Noted Allergy [...] 02/26/2014 03/21/2022 Intracranial aneurysm [I67.1] 08/30/2015 10/05/2022 medical terminologist current use of antiarrhythmic medical*10/20/2016 09/12/2021 Prosthetic [...] (more content not included)... Normal [facility] 25(OH)D3 [facility] 25-hydroxyvitamin D3 [Mass/Vol] 41.9 ng/mL Normal 31.0-80.0 [facility] Comment on above: Order Comment: Speci men Type: BLOOD SPECIMEN Ordering Facility: [facility] Address: [address] [place] [address] Result Comment: Clas sification of 25 [place] Vitamin D status: Deficiency/Insufficiency: < or = 30 ng/ml. Sufficiency/Optimal Levels: 31-80 ng/mL Toxicity: > 100 ng/mL. Test performed by chemiluminescent immunoassay. Performed By: #### 2 4331-1 #### [facility] CLIA [id number] [address] [place] [address] [place] [id number] [place] [address] [place] #### 61528-4 #### [facility] CLIA [id number] [address] [place] [address] [place] ALBUMIN/CREATININE RATIO, INEon 07-07-2024 Albumin DL <= 20 mg/L (U) [Mass/Vol] 21.0 mg/L Normal [facility] Comment on above: Order Comment: Speci men Type: BLOOD SPECIMEN Ordering Facility: [facility] Address: [address] [place] [address] Performed By: #### 2 4331-1 #### [facility] CLIA [id number] [address] [place] [address] [place] [facility] CLIA [id number] [place] [address] [place] #### 94739-7 #### [facility] CLIA [id number] [address] [place] [address] [place] Albumin/Creatinine (U) [Mass ratio] 34 mg/g High <30 [facility] Comment on above: Order Comment: Speci men Type: BLOOD SPECIMEN Ordering Facility: [facility] Address: [address] [place] [address] Result Comment: Adul t Male and Female Nephrotic Criteria: <30 mg/g is considered normal to mildly increased 30-300 mg/g is considered moderately increased >300 mg/g is considered severely increased KDIGO. (2013). KDIGO 2012 Clinical Practice Guideline for the Evaluation and Management of Chronic Kidney Disease. Official Journal of the International Society of Nephrology, 3(1), 1-150. Performed By: #### 2 4331-1 #### [facility] CLIA [id number] [address] [place] [address] [place] [facility] [id number] [address] [place] [address] [place] #### 13218-2 #### [facility] CLIA [id number] [address] [place] [address] [place] Creatinine (U) [Mass/Vol] 61.6 mg/dL Normal 20.0-300.0 [facility] Comment on above: Order Comment: Speci men Type: BLOOD SPECIMEN Ordering Facility: [facility] Address: [address] [place] [address] Performed By: #### 2 4331-1 #### [facility] CLIA [id number] [address] [place] [address] [place] [facility] [id number] [address] [place] [address] [place] #### 14971-8 #### [facility] CLIA [id number] [address] [place] [address] [place] Basic metabolic 2000 panelon 07-07-2024 Anion gap [Moles/Vol] 13 mmol/L Normal 8-15 [facility] Comment on above: Order Comment: Speci men Type: BLOOD SPECIMEN Ordering Facility: [facility] Address: [address] [place], [place] [address] Performed By: #### 3 3762-6 #### [facility] CLIA [id number] [address] [place], [place] [address] [place] Calcium [Mass/Vol] 9.8 mg/dL Normal 8.5-10.2 [facility] Comment on above: Order Comment: Speci men Type: BLOOD SPECIMEN Ordering Facility: [facility] Address: [address] [place] [address] Performed By: #### 3 3762-6 #### [facility] CLIA [id number] [address] [place] [address] [place] Chloride [Moles/Vol] 100 mmol/L Normal 98-107 [facility] Comment on above: Order Comment: Speci men Type: BLOOD SPECIMEN Ordering Facility: [facility] Address: [address] [place] [address] Performed By: #### 3 3762-6 #### [facility] CLIA [id number] [address] [place] [address] [place] CO2 [Moles/Vol] 25 mmol/L Normal 22-30 [facility] Comment on above: Order Comment: Speci men Type: BLOOD SPECIMEN Ordering Facility: [facility] Address: [address] [place], [place] [address] Performed By: #### 3 3762-6 #### [facility] CLIA [id number] [address] [place], [place] [address] [place] Creatinine [Mass/Vol] 1.12 mg/dL High 0.58-0.96 [facility] Comment on above: Order Comment: Speci men Type: BLOOD SPECIMEN Ordering Facility: [facility] Address: [address] [place], [place] [address] Performed By: #### 3 3762-6 #### [facility] CLIA [id number] [address] [place] [address] [place] Creatinine and Glomerular filtration rate.predicted panel (S/P/Bld) 50 mL/min/1.73m??? Low >=60 [facility] Comment on above: Order Comment: Annie ricci Type: BLOOD SPECIMEN Ordering Facility: [facility] Address: [address] [place] [address] Result Comment: Mira mated Glomerular Filtration Rate [...] GFR. Performed By: #### 3 3762-6 #### [facility] CLIA [id number] [address] [place] [address] [place] Glucose [Mass/Vol] 118 mg/dL High 74-99 [facility] Comment on above: Order Comment: Annie ricci Type: BLOOD SPECIMEN Ordering Facility: [facility] Address: [address] [place] [address] Result Comment: The [place] Diabetes Association (ADA) provides guidance for cutoff [...] Standards of Medical Care in Diabetes 2016, [place] Diabetes Association. Diabetes Care. 2016.39(Suppl 1). Performed By: #### 3 3762-6 #### [facility] CLIA [id number] [address] [place] [address] [place] Potassium [Moles/Vol] 4.4 mmol/L Normal 3.7-5.1 [facility] Comment on above: Order Comment: Speci men Type: BLOOD SPECIMEN Ordering Facility: [facility] Address: [address] [place] [address] Performed By: #### 3 3762-6 #### [facility] CLIA [id number] [address] [place] [address] [place] Sodium [Moles/Vol] 138 mmol/L Normal 136-144 [facility] Comment on above: Order Comment: Speci men Type: BLOOD SPECIMEN Ordering Facility: [facility] Address: [address] [place] [address] Performed By: #### 3 3762-6 #### [facility] CLIA [id number] [address] [place] [address] [place] Urea nitrogen [Mass/Vol] 34 mg/dL High 7-21 [facility] Comment on above: Order Comment: Speci men Type: BLOOD SPECIMEN Ordering Facility: [facility] Address: [address] [place] [address] Performed By: #### 3 3762-6 #### [facility] CLIA [id number] [address] [place] [address] [place] CNOVon 07-07-2024 CNOV Office Visit (LAUREL ) BERTA SANCHES ([id number]) 1945 F [facility] Date Time Provider Department 07/07/24 8:00 AM DEYSI COLLAZO During your visit today, we recorded the following information about you: Pulse Respiration Blood pressure Weight 69/minute 16/minute 136/70 63.5 kg Deysi Collazo APRN.BRANCH LEAD 07/07/2024 12:41 PM Signed This is a 78 year old female who presents today with: Patient presents with: Establish Care HISTORY OF PRESENT ILLNESS: Berta Sanches is a 78 year old female. Patient presents with: Establish Care Pt presents [facility] to [facility]. 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 Lua PACEMAKER 10/2019 PART. HYSTERECTOMY W/WO RMVL OVARIES/TUBES 1973 h/o cervical cancer ovaries remain PAST SURGICAL HISTORY OF 1996 Aortic valve repair, Dr. Apodaca PAST SURGICAL HISTORY OF 2001 [address] Beltrán, [facility] PAST SURGICAL HISTORY OF 2015 clipping [...] once daily. (more content not included)... Normal [facility] HbA1c (Bld)on 07-07-2024 Average glucose Estimated from glycated hemoglobin (Bld) [Mass/Vol] 151 mg/dL Normal [facility] Comment on above: Order Comment: Annie ricci Type: BLOOD SPECIMEN Ordering Facility: [facility] Address: [address] [place] [address] Result Comment: eAG: (Estimated average glucose) is a calculated value from HgbA1c and is specialty sales representative of the average blood glucose level in the last 2-3 month period. Performed By: #### 3 3762-6 #### [facility] CLIA [id number] [address] [place] [address] [place] HbA1c (Bld) [Mass fraction] 6.9 % High 4.3-5.6 [facility] Comment on above: Order Comment: Annie ricci Type: BLOOD SPECIMEN Ordering Facility: [facility] Address: [address] [place] [address] Result Comment: [place] Diabetes Association guidelines indicate that patients with HgbA1c in the range 5.7-6.4% are at increased risk for development of diabetes, and intervention by lifestyle modification may be beneficial. HgbA1c greater or equal to 6.5% is considered diagnostic of diabetes. Performed By: #### 3 3762-6 #### [facility] CLIA [id number] [address] [place] [address] [place] TSH SerPl-aCncon 07-07-2024 TSH Qn 2.650 m[IU]/L Normal 0.270-4.200 [facility] Comment on above: Order Comment: Annie ricci Type: BLOOD SPECIMEN Ordering Facility: [facility] Address: [address] [place] [address] Performed By: #### 3 3762-6 #### [facility] CLIA [id number] [address] [place] [address] [place] CNOVon 04-07-2024 CN Office Visit ([facility] ) BERTA SANCHES ([id number]) 1945 [facility] Date Time Provider Department 04/07/24 9:00 AM ALBIN GU [facility] During your visit today, we recorded the following information about you: Pulse Blood pressure Weight 91/minute 142/47 62.1 kg Albin Gu APRN.BRANCH LEAD 04/07/2024 9:57 AM Signed [facility] OUTPATIENT VISIT DATE [...] a boat and take it out on [employer] to fish. IMPRESSION: NYHA Functional Class: II [...] moderate car (more content not included)... Normal [facility] BERTA SANCHES ([id number]) 1945 F [facility] Date Time Provider Department 02/21/24 MELIDA KOO [facility] During your visit today, we [...] understanding of plan of care. Melida Koo APRN.BRANCH LEAD Allergies As of Date: 02/21/2024 Noted Allergy [...] 02/26/2014 03/21/2022 Intracranial aneurysm [I67.1] 08/30/2015 10/05/2022 medical terminologist current use of antiarrhythmic medical*10/20/2016 09/12/2021 Prosthetic [...] (more content not included)... Normal [facility] NT-proBNP [facility] 02-14 Natriuretic peptide.B prohormone N-Terminal [Mass/Vol] 5922 pg/mL High <450 [facility] Comment on above: Order Comment: Speci men Type: BLOOD SPECIMEN Ordering Facility: [facility] Address: [address] [place] [address] Performed By: #### 3 3762-6 #### [facility] CLIA [id number] [address] [place] [address] STATES OF [facility] CNPNon 02-07-2024 [facility] Telephone ([facility]) BERTA SANCHES ([id number]) 1945 [facility] Date Time Provider Department 02/07/24 MELIDA KOO [facility] During your visit today, we recorded the following information about you: Melida Koo APRN.BRANCH LEAD 02/07/2024 8:28 AM Signed Pt called and left message on voicemail stating that she was feeling much better since following instructions that Albin Gu had given her. She reported that SOB and edema was improved. She has concerns about NTpBNP and when she should have that rechecked. Called patient and she did not answer. Message left for call back. Melida Koo APRN.BRANCH LEAD Allergies As of Date: 02/07/2024 Noted Allergy [...] 02/26/2014 03/21/2022 Intracranial aneurysm [I67.1] 08/30/2015 10/05/2022 medical terminologist current use of antiarrhythmic medical*10/20/2016 09/12/2021 Prosthetic [...] and diastoli*09/19/2020 05 (more content not included)... [facility] 02-04-2024 [facility] Telephone ([facility]) BERTA SANCHES ([id number]) 1945 F [facility] Date Time Provider Department 02/04/24 MARIBELL KING During your visit today, we recorded the following information about you: Ying Fuentes LPN 02/04/2024 2:12 PM Signed ----- Message from Maribell King APRN.BRANCH LEAD sent at 02/04/2024 2:02 PM EDT ----- [...] [N18.9] Order(s):BASIC METABOLIC PANEL [SQBMP] Order #: [id number] FUTURE Prescriptions as of 02/07/2024 - furosemide [...] 02/26/2014 03/21/2022 Intracranial aneurysm [I67.1] 08/30/2015 10/05/2022 long-term current use of antiarrhythmic medical*10/20/2016 09/12/2021 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 [facility] BERTA SANCHES ([id number]) 1945 F [facility] Date Time Provider Department 02/04/24 ALBIN GU [facility] During your visit today, we [...] 02/26/2014 03/21/2022 Intracranial aneurysm [I67.1] 08/30/2015 10/05/2022 long-term current use of antiarrhythmic medical*10/20/2016 09/12/2021 Prosthetic [...] (more content not included)... Normal [facility] Comprehensive metabolic 2000 panelon 02-03-2024 Albumin [Mass/Vol] 4.0 g/dL Normal 3.9-4.9 [facility] Comment on above: Order Comment: Speci men Type: BLOOD SPECIMEN Ordering Facility: [facility] Address: [address] [place] [address] Performed By: #### 3 3762-6 #### [facility] CLIA [id number] [address] [place] [address] [place] ALP [Catalytic activity/Vol] 102 U/L Normal 34-123 [facility] Comment on above: Order Comment: Speci men Type: BLOOD SPECIMEN Ordering Facility: [facility] Address: [address] [place] [address] Performed By: #### 3 3762-6 #### [facility] CLIA [id number] [address] [place] [address] [place] ALT [Catalytic activity/Vol] 10 U/L Normal 7-38 [facility] Comment on above: Order Comment: Speci men Type: BLOOD SPECIMEN Ordering Facility: [facility] Address: [address] [place] [address] Performed By: #### 3 3762-6 #### [facility] CLIA [id number] [address] [place], [place] [address] [place] Anion gap [Moles/Vol] 11 mmol/L Normal 8-15 [facility] Comment on above: Order Comment: Speci men Type: BLOOD SPECIMEN Ordering Facility: [facility] Address: [address] [place] [address] Performed By: #### 3 3762-6 #### [facility] CLIA [id number] [address] [place], [place] [address] [place] AST [Catalytic activity/Vol] 16 U/L Normal 13-35 [facility] Comment on above: Order Comment: Speci men Type: BLOOD SPECIMEN Ordering Facility: [facility] Address: [address] [place] [address] Performed By: #### 3 3762-6 #### [facility] CLIA [id number] [address] [place] [address] [place] Bilirubin [Mass/Vol] 1.1 mg/dL Normal 0.2-1.3 [facility] Comment on above: Order Comment: Speci men Type: BLOOD SPECIMEN Ordering Facility: [facility] Address: [address] [place] [address] Performed By: #### 3 3762-6 #### [facility] CLIA [id number] [address] [place] [address] [place] Calcium [Mass/Vol] 9.5 mg/dL Normal 8.5-10.2 [facility] Comment on above: Order Comment: Speci men Type: BLOOD SPECIMEN Ordering Facility: [facility] Address: [address] [place] [address] Performed By: #### 3 3762-6 #### [facility] CLIA [id number] [address] [place] [address] [place] Chloride [Moles/Vol] 98 mmol/L Normal 98-107 [facility] Comment on above: Order Comment: Speci men Type: BLOOD SPECIMEN Ordering Facility: [facility] Address: [address] [place], [place] [address] Performed By: #### 3 3762-6 #### [facility] CLIA [id number] [address] [place] [address] [place] CO2 [Moles/Vol] 22 mmol/L Normal 22-30 [facility] Comment on above: Order Comment: Speci men Type: BLOOD SPECIMEN Ordering Facility: [facility] Address: [address] [place] [address] Performed By: #### 3 3762-6 #### [facility] CLIA [id number] [address] [place] [address] [place] Creatinine [Mass/Vol] 1.28 mg/dL High 0.58-0.96 [facility] Comment on above: Order Comment: Speci men Type: BLOOD SPECIMEN Ordering Facility: [facility] Address: [address] [place] [address] Performed By: #### 3 3762-6 #### [facility] CLIA [id number] [address] [place] [address] [place] Creatinine and Glomerular filtration rate.predicted panel (S/P/Bld) 43 mL/min/1.73m??? Low >=60 [facility] Comment on above: Order Comment: Annie men Type: BLOOD SPECIMEN Ordering Facility: [facility] Address: [address] [place] [address] Result Comment: Mira mated Glomerular Filtration Rate [...] GFR. Performed By: #### 3 3762-6 #### [facility] CLIA [id number] [address] [place] [address] [place] Glucose [Mass/Vol] 147 mg/dL High 74-99 [facility] Comment on above: Order Comment: Kunali men Type: BLOOD SPECIMEN Ordering Facility: [facility] Address: [address] [place] [address] Result Comment: The [place] Diabetes Association (ADA) provides guidance for cutoff [...] Standards of Medical Care in Diabetes 2016, [place] Diabetes Association. Diabetes Care. 2016.39(Suppl 1). Performed By: #### 3 3762-6 #### [facility] CLIA [id number] [address] [place] [address] [place] Potassium [Moles/Vol] 4.8 mmol/L Normal 3.7-5.1 [facility] Comment on above: Order Comment: Annie ricci Type: BLOOD SPECIMEN Ordering Facility: [facility] Address: [address] [place] [address] Performed By: #### 3 3762-6 #### [facility] CLIA [id number] [address] [place] [address] [place] Protein [Mass/Vol] 7.2 g/dL Normal 6.3-8.0 [facility] Comment on above: Order Comment: Annie ricci Type: BLOOD SPECIMEN Ordering Facility: [facility] Address: [address] [place] [address] Performed By: #### 3 3762-6 #### [facility] CLIA [id number] [address] [place] [address] [place] ROBERT Sodium [Moles/Vol] 131 mmol/L Low 136-144 [facility] Comment on above: Order Comment: Kunali men Type: BLOOD SPECIMEN Ordering Facility: [facility] Address: [address] [place] [address] Performed By: #### 3 3762-6 #### [facility] CLIA [id number] [address] [place] [address] [place] Urea nitrogen [Mass/Vol] 34 mg/dL High 7-21 [facility] Comment on above: Order Comment: Speci men Type: BLOOD SPECIMEN Ordering Facility: [facility] Address: [address] [place] [address] Performed By: #### 3 3762-6 #### [facility] CLIA [id number] [address] [place] [address] [place] Lipid 1996 panelon 4 Cholesterol [Mass/Vol] 98 mg/dL Normal <200 [facility] Comment on above: Order Comment: Speci men Type: BLOOD SPECIMEN Ordering Facility: [facility] Address: [address] [place] [address] Result Comment: <200 mg/dL, Desirable 200-239 mg/dL, Borderline high >239 mg/dL, High Performed By: #### 2 4331-1 #### [facility] CLIA [id number] [address] [place] [address] [place] [facility] CLIA [id number] [address] [place] [address] [place] #### 24506-5 #### [facility] CLIA [id number] [address] [place] [address] [place] Cholesterol in HDL [Mass/Vol] 34 mg/dL Low >39 [facility] Comment on above: Order Comment: Speci men Type: BLOOD SPECIMEN Ordering Facility: [facility] Address: [address] [place] [address] Result Comment: 40-5 9 mg/dL, Acceptable >59 mg/dL, High: Negative risk factor for coronary heart disease <40 mg/dL, Low: Positive risk factor for coronary heart disease Performed By: #### 2 4331-1 #### [facility] CLIA [id number] [address] [place] [address] [place] [facility] CLIA [id number] [address] [place] [address] [place] #### 95774-6 #### [facility] CLIA [id number] [address] [place] [address] [facility] Cholesterol in LDL [Mass/Vol] 51 mg/dL Normal <100 [facility] Comment on above: Order Comment: Speci men Type: BLOOD SPECIMEN Ordering Facility: [facility] Address: [address] [place] [address] Result Comment: <100 mg/dL, Optimal 100-129 mg/dL, Near optimal/above optimal 130-159 mg/dL, Borderline high 160-189 mg/dL, High >189 mg/dL, Very high Secondary prevention optimal LDL Cholesterol levels are recommended to be < 70 mg/dL Performed By: #### 2 4331-1 #### [facility] CLIA [id number] [address] [place] [address] [place] [facility] CLIA [id number] [address] [place] [address] OF ROBERT #### 74201-7 #### [facility] CLIA [id number] [address] [place] [address] [place] ROBERT Cholesterol in LDL/Cholesterol in HDL [Mass ratio] 1.50 {ratio} Normal <2.54 [facility] Comment on above: Order Comment: Speci men Type: BLOOD SPECIMEN Ordering Facility: [facility] Address: [address] [place] [address] Result Comment: Hussein phillips: 1. National Cholesterol Education Program ATP III Guideline At-A-Glance Quick Desk Reference: National Heart, Lung, and Blood [place]. National Institutes of Health. 2001: NIH Publication No. 01-3305. 2. An International Atherosclerosis Society position paper: global recommendations for the management of dyslipidemia: executive summary, Atherosclerosis. 2014: 232(2):410-413. Performed By: #### 2 4331-1 #### [facility] CLIA [id number] [address] [place] [address] [place] [facility] CLIA [id number] [address] [place] [address] [place] #### 20537-9 #### [facility] CLIA [id number] [address] [place] [address] [place] Cholesterol in VLDL [Mass/Vol] 13 mg/dL Normal <30 [facility] Comment on above: Order Comment: Speci men Type: BLOOD SPECIMEN Ordering Facility: [facility] Address: [address] [place], [place] [address] Performed By: #### 2 4331-1 #### [facility] CLIA [id number] [address] [place] [address] [place] [facility] CLIA [id number] [address] [place] [address] [place] #### 87214-0 #### [facility] CLIA [id number] [address] [place] [address] [place] Cholesterol non HDL [Mass/Vol] 64 mg/dL Normal <130 [facility] Comment on above: Order Comment: Speci men Type: BLOOD SPECIMEN Ordering Facility: [facility] Address: [address] [place], [place] [id number] Result Comment: <130 mg/dL, Optimal 130-159 mg/dL, Near optimal/above optimal 160-189 mg/dL, Borderline high 190-219 mg/dL, High >219 mg/dL, Very high Secondary prevention optimal non HDL Cholesterol levels are recommended to be <100 mg/dL Performed By: #### 2 4331-1 #### [facility] CLIA [id number] [address] [place], [place] [address] [place] [facility] CLIA [id number] [address] [place] [address] [place] #### 45890-6 #### [facility] CLIA [id number] [address] [place] [address] [place] Cholesterol.total/Gin sterol in HDL [Mass ratio] 2.88 {ratio} Normal <5.10 [facility] Comment on above: Order Comment: Speci men Type: BLOOD SPECIMEN Ordering Facility: [facility] Address: [address] [place] [address] Performed By: #### 2 4331-1 #### [facility] CLIA [id number] [address] [place] [address] [place] [facility] CLIA [id number] [address] [place] [address] [place] #### 98183-5 #### [facility] CLIA [id number] [address] [place] [address] [place] FASTING TIME 12 hrs Normal [facility] Comment on above: Order Comment: Speci men Type: BLOOD SPECIMEN Ordering Facility: [facility] Address: [address] [place], [place] [address] Performed By: #### 2 4331-1 #### [facility] CLIA [id number] [address] [place] [address] [place] [facility] [id number] [address] [place] [address] [place] #### 94032-9 #### [facility] CLIA [id number] [address] [place] [address] [place] Triglyceride [Mass/Vol] 67 mg/dL Normal <150 [facility] Comment on above: Order Comment: Speci men Type: BLOOD SPECIMEN Ordering Facility: [facility] Address: [facility] [place] [id number] Result Comment: <150 mg/dL, Normal 150-199 mg/dL, Borderline high 200-499 mg/dL, High >499 mg/dL, Very high Performed By: #### 2 4331-1 #### [facility] CLIA [id number] [address] [place] [address] [place] [facility] CLIA [id number] [address] [place] [address] [place] #### 84195-8 #### [facility] CLIA [id number] [address] [place] [address] [place] NT-proBNP SerPl-mCncon 02-02 Natriuretic peptide.B prohormone N-Terminal [Mass/Vol] 8577 pg/mL High <450 [facility] Comment on above: Order Comment: Speci men Type: BLOOD SPECIMEN Ordering Facility: [facility] Address: [address] [place] [address] Performed By: #### 2 4331-1 #### [facility] CLIA [id number] [address] [place] [address] [place] [facility] CLIA [id number] [address] [place] [address] [place] #### 79649-1 #### [facility] CLIA [id number] [address] [place] [address] [place] Phosphate SerPl-mCncon 02-02 Phosphate [Mass/Vol] 3.3 mg/dL Normal 2.7-4.8 [facility] Comment on above: Order Comment: Speci men Type: BLOOD SPECIMEN Ordering Facility: [facility] Address: [address] [place] [address] Performed By: #### 3 3762-6 #### [facility] CLIA [id number] [address] [place] [address] [place] CNOVon 01-17-2024 CNOV Office Visit (CAWSTR ) BERTA SANCHES ([id number]) 1945 Date Time Provider Department 01/17/24 9:20 AM CARLA BURDICK During your visit today, we recorded the following information about you: Pulse Blood pressure Weight Height 64/minute 157/59 66.8 kg 1.575 m Carla Burdick MD 01/17/2024 10:36 AM Signed [facility] SE[facility]IOLOGY Cardiology ([facility]) [address] [facility] [id number] OUTPATIENT VISIT DATE 01/17/2024 PRIMARY CARE PHYSICIAN: Doreen Le [address] [place] [address] HISTORY OF PRESENT ILLNESS: Ms. 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 Lua PACEMAKER 10/2019 PART. HYSTERECTOMY W/WO RMVL OVARIES/TUBES 1974 h/o cervical cancer ovaries remain PAST SURGICAL HISTORY OF 1996 Aortic valve repair, Dr. Apodaca PAST SURGICAL HISTORY OF 2001 [address] Beltrán, [facility] PAST SURGICAL HISTORY OF 2015 clipping [...] shortly af (more content not included)... Normal [facility] ALLIED HEALTHon 11-08-2023 ALLIED HEALTH HNO ID: [id number] Author: SONY LUIS RT(R) Service: Radiology Author [...] PATIENT PRESENTS WITH AN IMPLANTABLE OR ATTACHED EXERCISE EQUIPMENT SPECIALIST: No RADIOLOGY DEPARTMENT: General X-ray: Exam(s) Completed: Chest X-Ray PERIPHERAL IV DATA: Not applicable SIGNED BY: RT Risa(R) November 08, 2023 6:37 PM [facility] ED PROV NOTEon 11-08-2023 ED PROV NOTE HNO ID: [id number] Author: SHUBHAM CHAUDHRY MD Service: ? Author Type: Physician Type: ED Provider Notes Filed: 11/08/2023 20:32 Note Text: Left after being seen in triage. Called patient and recommended she come back due to her presenting sxs. States she will come back. SIGNATURE: Shubham Chaudhry MD PATIENT NAME: Berta Sanches DATE: November 08, 2023 TIME: 8:31 PM PAGER/CONTACT #: SHUBHAM CHAUDHRY 11/08/232031 [facility] ED Triage Noteon 11-08-2023 ED Triage Note HNO ID: [id number] Author: SHUBHAM CHAUDHRY MD Service: ? Author [...] TROPONIN T EKG SIGNATURE: Shubham Chaudhry MD [facility] EKGon 11-08-2023 Electrocardiogram Ventricular Rate : 1 13 BPM Atrial Rate : 0 BPM P-R Interval : 250 ms QRS Duration : 102 ms Q-T Interval : 320 ms QTC Calculation(Bazett) : 439 ms Calculated P [place] : -38 degrees Calculated R [place] : -29 degrees Calculated T [place] : 132 degrees Sinus tachycardia Prolonged MI interval LVH with secondary repolarization abnormality Abnormal ECG No Stemi 1746 Confirmed by MD CHAUDHRY BLAIN ([id number]), publishing editor BRYON MIJARES ([id number]) on 11/08/2023 10:31:52 PM NAME : BERTA SANCHES PID : [id number] : 1945 Gender : Female Race : ORD : Procedure Date : Nov 08 2023 17:44:03 Edit Date : Nov 08 2023 22:31:54 Diagnosis: Sinus tachycardia Prolonged MI interval LVH with secondary repolarization abnormality Abnormal ECG No Stemi 1746 Confirmed by MD CHAUDHRY BLAIN ([id number]), publishing editor BRYON MIJARES ([id number]) on 11/08/2023 10:31:52 PM Test Reason : Location : 402 : FVED TRIAGE Overread By : MD CHAUDHRY BLAIN Edited By : BRYON MIJARES Referred By : , Acquired by : [id number], Normal [facility] XR CHEST 2V FRONTAL/LATon XR CHEST [...] Query hilar lymphadenopathy. No confluent alveolar opacity. 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: PSCB Transcribe Date/Time: Nov 08 2023 7:38P Dictated by : LIZZIE LARA MD This examination was interpreted and the report reviewed and electronically signed by: LIZZIE LARA MD on Nov 08 2023 7:44PM EST [id number] Normal [facility] US Lower extremity veins - b ilateralon 10-20-2023 Non-Invasive Vascular [facility] Lower Extremity Venous Duplex [...] below for Image [facility] ECG COMPLETEon 10-19-2023 Atrial Rate 125 BPM [facility] Calculated R [place] -40 degrees [facility] Calculated T [place] -34 degrees [facility] QRS Duration 106 ms [facility] QT Interval 410 ms [facility] QTC Calculation (Bazett) 490 ms [facility] Ventricular Rate 86 BPM [facility] XR Chest PA and Lateralon IMPRESSION: No acute radiographic abnormality. Cardiomegaly 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 Transcribe Date/Time: Oct 18 2023 4:16P Dictated by : MICHAELLE BAHENA MD This examination was interpreted and the report reviewed and electronically signed by: MICHAELLE BAHENA MD on Oct 18 2023 4:18PM [facility] DIVISION OF RADIOLOGY * * *Final Report* [...] soft tissues: Unremarkable. DIVISION OF RADIOLOGY Provider, [facility] - 10/18/2023 * * *Final Report* [...] IMPRESSION IMPRESSION: No acute radiographic abnormality. Cardiomegaly 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: PSCB Transcribe Date/Time: Oct 18 2023 4:16P Dictated by : MICHAELLE BAHENA MD This examination was interpreted and the report reviewed and electronically signed by: MICHAELLE BAHENA MD on Oct 18 2023 4:18PM [facility] Radiology Study observation (narrative) [facility] XR Chest PA and LateralOrder ed By: Ccf Provider on 10-18-2023 [facility] No Panel Informationon 10-15 BLANK _ [facility] Implant Date 10/21/2020 [facility] PACEMAKER REMOTE CHECKon AV Delay Adaptive Paced Minimum (ms) 180 ms [facility] AV Delay Adaptive Sensed Minimum (ms) 150 ms [facility] AV Delay Adaptive Status DISABLED [facility] Battery Voltage (volts) 3.02 V C [facility] Pavan RA Pacing Amplitude (volts) 1.5 V [facility] Pavan RA Pacing Polarity BI [facility] Pavan RA Pacing Pulse Width (ms) 0.4 ms [facility] Pavan RA Sensing Amplitude (mvolts) 0.3 mV [facility] Pavan RA Sensing Blanking Period (ms) 150 ms [facility] Pavan RA Sensing Polarity BI [facility] Pavan RA Sensing Refractory Period (ms) Auto [facility] Pavan RV Pacing Amplitude (volts) 2 V [facility] Pavan RV Pacing Polarity BI [facility] Pavan RV Pacing Pulse Width (ms) 0.4 ms [facility] Pavan RV Sensing Amplitude (mvolts) 0.9 mV [facility] Pavan RV Sensing Blanking Period (ms) 200 ms [facility] Pavan RV Sensing Polarity BI [facility] Hysteresis Rate (bpm) DISABLED [facility] Lead1 Mfg MDT [facility] Lead2 Mfg MDT [facility] Location RV [facility] Location RA [facility] Lower Rate (bpm) 60 {beats}/min [facility] Max Sensor Rate (bmp) 120 {beats}/min [facility] Model [id number] Sania XT DR MRI Cl [facility] Model 3830 SelectSecure MR I SureScan [facility] Model 5076 CapSureFix Novus [facility] PM-Device Mfg MDT [facility] PM-Percent Pacing (A) 7.59 % [facility] PM-Percent Pacing (V) 18.89 % [facility] PM-PMT Intervention ENABLED [facility] PM-PVC Intervention ENABLED [facility] PM-Rate Modulation Acceleration Reaction 30 s [facility] PM-Rate Modulation ADL Rate (bpm) 95 {beats}/min [facility] PM-Rate Modulation Deceleration Exercise [facility] PM-Rate Modulation [place] 3 [facility] PM-Rate Modulation Threshold Low [facility] RA Bipolar Impedance ohms 513 ohm [facility] RA Unipolar Impedance ohms 304 ohm [facility] RV Bipolar Impedance ohms 456 ohm [facility] RV Unipolar Impedance 342 ohm [facility] Serial Number [id number] [facility] Serial Number [id number] [facility] Serial Number [id number] [facility] Thresh RA Capture Amplitude (volts) 0.75 V [facility] Thresh RA Capture Duration (ms) 0.4 ms [facility] Thresh RA Sensing Amplitude (mvolts) 0.5 mV [facility] Thresh RV Capture Amplitude (volts) 1 V [facility] Thresh RV Capture Duration (ms) 0.4 ms [facility] Thresh RV Sensing Amplitude (mvolts) 12.5 mV [facility] Tracking Rate (bpm) 120 {beats}/min [facility] INFLUENZA A&B MOLECULAR (POC )on 07-05-2023 Flu A (POCT) Negative Negative [facility] Flu B (POCT) Negative Negative [facility] Procedural Control Valid [facility] XR Foot - right AP and Later al and obliqueon 06-03-2023 IMPRESSION: 1. Nondisplaced fracture of the base of the right fifth metatarsal 2. Right first metatarsophalangeal joint space narrowing and periarticular erosions, which can be seen with gout 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: PSCB Transcribe Date/Time: Jun 03 2023 4:34P Dictated by : JUDSON JACINTO MD This examination was interpreted and the report reviewed and electronically signed by: JUDSON JACINTO MD on Jun 03 2023 4:36PM [facility] DIVISION OF RADIOLOGY * * *Final Report* [...] soft tissue swelling. DIVISION OF RADIOLOGY Provider, [facility] Loreta [facility] - 06/03/2023 * * *Final Report* [...] erosions, which can be seen with gout 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 Transcribe Date/Time: Jun 03 2023 4:34P Dictated by : JUDSON JACINTO MD This examination was interpreted and the report reviewed and electronically signed by: JUDSON JACINTO MD on Jun 03 2023 4:36PM EST [facility] XR Foot - right AP and Later al and obliqueOrdered By: Cc Provider on 06-03-2023 [facility] XR Foot - right AP and Later al and obliqueon 06-01-2023 Radiology Study observation (narrative) [facility] CT CHEST WO IVCONon 04-30-20 [facility] XR Finger - right AP and Lat eral and obliqueon 04-15-2023 IMPRESSION: No acute osseous abnormality 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: VADIMB Transcribe Date/Time: Apr 15 2023 11:58A Dictated by : JUDSON JACINTO MD This examination was interpreted and the report reviewed and electronically signed by: JUDSON JACINTO MD on Apr 15 2023 11:59AM [facility] DIVISION OF RADIOLOGY * * *Final Report* [...] No periarticular erosions. DIVISION OF RADIOLOGY Provider, [facility] - 04/15/2023 * * *Final Report* [...] erosions. IMPRESSION IMPRESSION: No acute osseous abnormality 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: PSCB Transcribe Date/Time: Apr 15 2023 11:58A Dictated by : JUDSON JACINTO MD This examination was interpreted and the report reviewed and electronically signed by: JUDSON JACINTO MD on Apr 15 2023 11:59AM EST [facility] XR Finger - right AP and Lat eral and obliqueOrdered By: Ccf Provider on 04-15-2023 [facility] XR Finger - right AP and Lat eral and obliqueon 04-12-2023 Radiology Study observation (narrative) [facility] No Panel Informationon 03-28 BLANK _ [facility] Implant Date 10/21/2020 [facility] PACEMAKER REMOTE CHECKon AV Delay Adaptive Paced Minimum (ms) 180 ms [facility] AV Delay Adaptive Sensed Minimum (ms) 150 ms [facility] AV Delay Adaptive Status DISABLED [facility] Battery Voltage (volts) 3.02 V [facility] Pavan RA Pacing Amplitude (volts) 1.5 V [facility] Pavan RA Pacing Polarity BI [facility] Pavan RA Pacing Pulse Width (ms) 0.4 ms [facility] Pavan RA Sensing Amplitude (mvolts) 0.3 mV [facility] Pavan RA Sensing Blanking Period (ms) 150 ms [facility] Pavan RA Sensing Polarity BI [facility] Pavan RA Sensing Refractory Period (ms) Auto [facility] Pavan RV Pacing Amplitude (volts) 2 V [facility] Pavan RV Pacing Polarity BI [facility] Pavan RV Pacing Pulse Width (ms) 0.4 ms [facility] Pavan RV Sensing Amplitude (mvolts) 0.9 mV [facility] Pavan RV Sensing Blanking Period (ms) 200 ms [facility] Pavan RV Sensing Polarity BI [facility] Hysteresis Rate (bpm) DISABLED [facility] Lead1 Mfg MDT [facility] Lead2 Mfg MDT [facility] Location RV [facility] Location RA [facility] Lower Rate (bpm) 60 {beats}/min [facility] Max Sensor Rate (bmp) 120 {beats}/min [facility] Model [id number] Sania XT DR MRI Cl [facility] Model 3830 SelectSecure MR I SureScan [facility] Model 5076 CapSureFix Novus [facility] PM-Device Mfg MDT [facility] PM-Percent Pacing (A) 96.66 % [facility] PM-Percent Pacing (V) 1.41 % [facility] PM-PMT Intervention ENABLED [facility] PM-PVC Intervention ENABLED [facility] PM-Rate Modulation Acceleration Reaction 30 s [facility] PM-Rate Modulation ADL Rate (bpm) 95 {beats}/min [facility] PM-Rate Modulation Deceleration Exercise [facility] PM-Rate Modulation [place] 3 [facility] PM-Rate Modulation Threshold Low [facility] RA Bipolar Impedance ohms 475 ohm [facility] RA Unipolar Impedance ohms 304 ohm [facility] RV Bipolar Impedance ohms 437 ohm [facility] RV Unipolar Impedance 342 ohm [facility] Serial Number [id number] [facility] Serial Number [id number] [facility] Serial Number [id number] [facility] Thresh RA Capture Amplitude (volts) 0.75 V [facility] Thresh RA Capture Duration (ms) 0.4 ms [facility] Thresh RA Sensing Amplitude (mvolts) 0.75 mV [facility] Thresh RV Capture Amplitude (volts) 1 V [facility] Thresh RV Capture Duration (ms) 0.4 ms [facility] Thresh RV Sensing Amplitude (mvolts) 12.375 mV [facility] Tracking Rate (bpm) 120 {beats}/min [facility] No Panel Informationon 12-29 BLANK _ [facility] Implant Date 10/21/2020 [facility] PACEMAKER REMOTE CHECKon AV Delay Adaptive Paced Minimum (ms) 180 ms [facility] AV Delay Adaptive Sensed Minimum (ms) 150 ms [facility] AV Delay Adaptive Status DISABLED [facility] Battery Voltage (volts) 3.02 V C [facility] Pavan RA Pacing Amplitude (volts) 1.5 V [facility] Pavan RA Pacing Polarity BI [facility] Pavan RA Pacing Pulse Width (ms) 0.4 ms [facility] Pavan RA Sensing Amplitude (mvolts) 0.3 mV [facility] Pavan RA Sensing Blanking Period (ms) 150 ms [facility] Pavan RA Sensing Polarity BI [facility] Pavan RA Sensing Refractory Period (ms) Auto [facility] Pavan RV Pacing Amplitude (volts) 2 V [facility] Pavan RV Pacing Polarity BI [facility] Pavan RV Pacing Pulse Width (ms) 0.4 ms [facility] Pavan RV Sensing Amplitude (mvolts) 0.9 mV [facility] RV Sensing Blanking Period (ms) 200 ms [facility] RV Sensing Polarity BI [facility] Hysteresis Rate (bpm) DISABLED [facility] Lead1 Mfg MDT [facility] Lead2 Mfg MDT [facility] Location RV [facility] Location RA [facility] Lower Rate (bpm) 60 {beats}/min [facility] Max Sensor Rate (bmp) 120 {beats}/min [facility] Model [id number] [place] XT DR MRI Cl [facility] Model 3830 SelectSecure MR I SureScan [facility] Model 5076 CapSureFix Novus [facility] PM-Device Mfg MDT [facility] PM-Percent Pacing (A) 79.14 % [facility] PM-Percent Pacing (V) 5.48 % [facility] PM-PMT Intervention ENABLED [facility] PM-PVC Intervention ENABLED [facility] PM-Rate Modulation Acceleration Reaction 30 s [facility] PM-Rate Modulation ADL Rate (bpm) 95 {beats}/min [facility] PM-Rate Modulation Deceleration Exercise [facility] PM-Rate Modulation [place] 3 [facility] PM-Rate Modulation Threshold Low [facility] RA Bipolar Impedance ohms 437 ohm [facility] RA Unipolar Impedance ohms 304 ohm [facility] RV Bipolar Impedance ohms 437 ohm [facility] RV Unipolar Impedance 342 ohm [facility] Serial Number [id number] [facility] Serial Number [id number] [facility] Serial Number [id number] [facility] Thresh RA Capture Amplitude (volts) 0.625 V [facility] Thresh RA Capture Duration (ms) 0.4 ms [facility] Thresh RA Sensing Amplitude (mvolts) 0.875 mV [facility] Thresh RV Capture Amplitude (volts) 1 V [facility] Thresh RV Capture Duration (ms) 0.4 ms [facility] Thresh RV Sensing Amplitude (mvolts) 10.75 mV [facility] Tracking Rate (bpm) 120 {beats}/min [facility] MRA BRAIN WO/W IVCONon 12-10 MRA BRAIN WO/W IVCON * * *Final Report* * * DATE OF EXAM: Dec 10 2022 1:14PM [facility] 0273 - MRA BRAIN WO/W IVCON / PROCEDURE REASON: multiple diagnoses * * * * Physician Interpretation * * * * EXAMINATION: MRA BRAIN WO/W IVCON CLINICAL HISTORY: Nonruptured acom aneurysm follow-up. TECHNIQUE: Short TR short TE SPGR through the [place] after contrast. Intracranial 3D [id number] MRA with post-processing performed at the modality [...] aneurysm coiling. No additional intracranial aneurysms identified. 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 Transcribe Date/Time: Dec 10 2022 1:31P Dictated by : TYE REN MD This examination was interpreted and the report reviewed and electronically signed by: TYE REN MD on Dec 10 2022 1:38PM EST [id number] Normal [facility] KIDNEY/BLADDERon 10-07-19 Radiology Result ACTIONABLE Abnormal [facility] No Panel Informationon 09-27 BLANK _ [facility] Implant Date 10/21/2020 [facility] PACEMAKER REMOTE CHECKon AV Delay Adaptive Paced Minimum (ms) 180 ms [facility] AV Delay Adaptive Sensed Minimum (ms) 150 ms [facility] AV Delay Adaptive Status DISABLED [facility] Battery Voltage (volts) 3.02 V [facility] Pavan RA Pacing Amplitude (volts) 1.5 V [facility] Pavan RA Pacing Polarity BI [facility] P[facility] RA Pacing Pulse Width (ms) 0.4 ms [facility] P[facility] RA Sensing Amplitude (mvolts) 0.3 mV [facility] RA Sensing Blanking Period (ms) 150 ms [facility] P[facility] RA Sensing Polarity BI [facility] RA Sensing Refractory Period (ms) Auto [facility] RV Pacing Amplitude (volts) 2 V [facility] RV Pacing Polarity BI [facility] RV Pacing Pulse Width (ms) 0.4 ms [facility] RV Sensing Amplitude (mvolts) 0.9 mV [facility] RV Sensing Blanking Period (ms) 200 ms [facility] RV Sensing Polarity BI [facility] Hysteresis Rate (bpm) DISABLED [facility] Lead1 Karlg MDT [facility] Lead2 Karlg T [facility] Location RV [facility] Location RA [facility] Lower Rate (bpm) 60 {beats}/min [facility] Max Sensor Rate (bmp) 120 {beats}/min [facility] Model [id number] [place] XT DR MRI Cl [facility] Model 3830 SelectSecure MR I SureScan [facility] Model 5076 CapSureFix [facility] PM-Device Mfg MDT [facility] PM-Percent Pacing (A) 46.27 % [facility] PM-Percent Pacing (V) 11.47 % [facility] PM-PMT Intervention ENABLED [facility] PM-PVC Intervention ENABLED [facility] PM-Rate Modulation Acceleration Reaction 30 s [facility] PM-Rate Modulation ADL Rate (bpm) 95 {beats}/min [facility] PM-Rate Modulation Deceleration Exercise [facility] PM-Rate Modulation [place] 3 [facility] PM-Rate Modulation Threshold Low [facility] RA Bipolar Impedance ohms 494 ohm [facility] RA Unipolar Impedance ohms 285 ohm [facility] RV Bipolar Impedance ohms 437 ohm [facility] RV Unipolar Impedance 323 ohm [facility] Serial Number [id number] [facility] Serial Number [id number] [facility] Serial Number [id number] [facility] Thresh RA Capture Amplitude (volts) 0.5 V [facility] Thresh RA Capture Duration (ms) 0.4 ms [facility] Thresh RA Sensing Amplitude (mvolts) 0.5 mV [facility] Thresh RV Capture Amplitude (volts) 1 V [facility] Thresh RV Capture Duration (ms) 0.4 ms [facility] Thresh RV Sensing Amplitude (mvolts) 13.375 mV [facility] Tracking Rate (bpm) 120 {beats}/min [facility] No Panel Informationon 06-30 BLANK _ [facility] Implant Date 10/21/2020 [facility] PACEMAKER REMOTE CHECKon AV Delay Adaptive Paced Minimum (ms) 180 ms [facility] AV Delay Adaptive Sensed Minimum (ms) 150 ms [facility] AV Delay Adaptive Status DISABLED [facility] Battery Voltage (volts) 3.03 V [facility] P[facility] RA Pacing Amplitude (volts) 1.5 V [facility] Pavan RA Pacing Polarity BI [facility] Pavan RA Pacing Pulse Width (ms) 0.4 ms [facility] Pavan RA Sensing Amplitude (mvolts) 0.3 mV [facility] Pavan RA Sensing Blanking Period (ms) 150 ms [facility] Pavan RA Sensing Polarity BI [facility] Pavan RA Sensing Refractory Period (ms) Auto [facility] RV Pacing Amplitude (volts) 2.5 V [facility] P[facility] RV Pacing Polarity BI [facility] Pavan RV Pacing Pulse Width (ms) 0.4 ms [facility] RV Sensing Amplitude (mvolts) 0.9 mV [facility] Pavan RV Sensing Blanking Period (ms) 200 ms [facility] Pavan RV Sensing Polarity BI [facility] Hysteresis Rate (bpm) DISABLED [facility] Lead1 Mfg MDT [facility] Lead2 Mfg MDT [facility] Location RV [facility] Location RA [facility] Lower Rate (bpm) 60 {beats}/min [facility] Max Sensor Rate (bmp) 120 {beats}/min [facility] Model [id number] [place] XT DR MRI Cl [facility] Model 3830 SelectSecure MR I SureScan [facility] Model 5076 CapSureFix Novus [facility] PM-Device Mfg MDT [facility] PM-Percent Pacing (A) 53.59 % [facility] PM-Percent Pacing (V) 11.72 % [facility] PM-PMT Intervention ENABLED [facility] PM-PVC Intervention ENABLED [facility] PM-Rate Modulation Acceleration Reaction 30 s [facility] PM-Rate Modulation ADL Rate (bpm) 95 {beats}/min [facility] PM-Rate Modulation Deceleration Exercise [facility] PM-Rate Modulation [place] 3 [facility] PM-Rate Modulation Threshold Low [facility] RA Bipolar Impedance ohms 456 ohm [facility] RA Unipolar Impedance ohms 304 ohm [facility] RV Bipolar Impedance ohms 437 ohm [facility] RV Unipolar Impedance 323 ohm [facility] Serial Number [id number] [facility] Serial Number [id number] [facility] Serial Number [id number] [facility] Thresh RA Capture Amplitude (volts) 0.5 V [facility] Thresh RA Capture Duration (ms) 0.4 ms [facility] Thresh RA Sensing Amplitude (mvolts) 0.375 mV [facility] Thresh RV Capture Amplitude (volts) 1.125 V [facility] Thresh RV Capture Duration (ms) 0.4 ms [facility] Thresh RV Sensing Amplitude (mvolts) 9.25 mV [facility] Tracking Rate (bpm) 120 {beats}/min [facility] UA DIP, URINE (POC)on 2021 BILIRUBIN UA (POCT) Negative Negative [facility] CLARITY UA (POCT) Clear [facility] COLOR UA (POCT) Yellow [facility] GLUCOSE UA (POCT) Negative Negative mg/dL [facility] HEMOGLOBIN/BLOOD UA (POCT) Negative Negative [facility] KETONE UA (POCT) Negative Negative mg/dL [facility] LEUKOCYTES [facility] (POCT) [facility] NITRITE UA (POCT) Negative Negative [facility] PH UA (POCT) 5.5 4.5 - 8.0 [facility] Protein Ql (U) 30 mg/dL Abnormal Negative mg/dL [facility] SPECIFIC GRAVITY UA (POCT) 1.020 1.005 - 1.030 [facility] UROBILINOGEN UA (POCT) 0.2 E.U./dL Cat l E.U./dL [facility] CBC W Auto Differential pane l (Bld)on 04-06-2022 Abs Immature Gran 0.03 k/uL <0.10 k/uL [facility] Basophils (Bld) [#/Vol] 0.08 10*3/uL <0.11 k/uL [facility] Basophils/100 WBC (Bld) 1.1 % [facility] Differential cell count method Nom (Bld) Auto [facility] Eosinophils (Bld) [#/Vol] 0.11 10*3/uL <0.46 k/uL [facility] Eosinophils/100 WBC (Bld) 1.5 % [facility] Erythrocyte distribution width (RBC) [Ratio] 19.9 % High 11.5 - 15.0 % [facility] Hematocrit (Bld) [Volume fraction] 31.3 % Low 36.0 - 46.0 % [facility] Hemoglobin (Bld) [Mass/Vol] 9.2 g/dL Low 11.5 - 15.5 g/dL [facility] Immature Gran % 0.4 % [facility] Lymphocytes (Bld) [#/Vol] 2.05 10*3/uL 1.00 - 4.00 k/uL [facility] Lymphocytes/100 WBC (Bld) 27.9 % [facility] MCH (RBC) [Entitic mass] 24.5 pg Low 26.0 - 34.0 pg [facility] MCHC (RBC) [Mass/Vol] 29.4 g/dL Low 30.5 - 36.0 g/dL [facility] MCV (RBC) [Entitic vol] 83.5 fL 80.0 - 100.0 fL [facility] Monocytes (Bld) [#/Vol] 0.93 10*3/uL High <0.87 k/uL [facility] Monocytes/100 WBC (Bld) 12.7 % [facility] Neutrophils (Bld) [#/Vol] 4.14 10*3/uL 1.45 - 7.50 k/uL [facility] Neutrophils/100 WBC (Bld) 56.4 % [facility] Nucleated RBC (Bld) [#/Vol] <0.01 k/uL [facility] Nucleated RBC/100 WBC (Bld) [Ratio] 0.0 /100 WBC [facility] Platelet mean volume (Bld) [Entitic vol] 9.8 fL 9.0 - 12.7 fL [facility] Platelets (Bld) [#/Vol] 266 10*3/uL 150 - 400 k/uL [facility] RBC (Bld) [#/Vol] 3.75 10*6/uL Low 3.90 - 5.2 0 m/uL [facility] WBC (Bld) [#/Vol] 7.34 10*3/uL 3.70 - 11. 00 k/uL [facility] FERRITIN BLDon 04-06-2022 Ferritin [Mass/Vol] 27.1 ng/mL 14.7 - 2 05.1 ng/mL [facility] Iron and Iron binding capaci ty panelon 04-06-2022 Iron [Mass/Vol] 26 ug/dL Low 41 - 186 ug/dL [facility] Iron binding capacity [Mass/Vol] 454 ug/dL High 232 - 386 ug/dL [facility] Iron/TIBC [Molar ratio] 5.7 % Low 15.0 - 57.0 % [facility] No Panel Informationon 03-28 BLANK _ [facility] Implant Date 10/21/2020 [facility] PACEMAKER REMOTE CHECKon AV Delay Adaptive Paced Minimum (ms) 180 ms [facility] AV Delay Adaptive Sensed Minimum (ms) 150 ms [facility] AV Delay Adaptive Status DISABLED [facility] Battery Voltage (volts) 3.03 V [facility] RA Pacing Amplitude (volts) 1.5 V [facility] P[facility] RA Pacing Polarity BI [facility] RA Pacing Pulse Width (ms) 0.4 ms [facility] P[facility] RA Sensing Amplitude (mvolts) 0.3 mV [facility] Pavan RA Sensing Blanking Period (ms) 150 ms [facility] P[facility] RA Sensing Polarity BI [facility] P[facility] RA Sensing Refractory Period (ms) Auto [facility] RV Pacing Amplitude (volts) 2 V [facility] P[facility] RV Pacing Polarity BI [facility] P[facility] RV Pacing Pulse Width (ms) 0.4 ms [facility] RV Sensing Amplitude (mvolts) 0.9 mV [facility] Pavan RV Sensing Blanking Period (ms) 200 ms [facility] P[facility] RV Sensing Polarity BI [facility] Hysteresis Rate (bpm) DISABLED [facility] Lead1 Mfg MDT [facility] Lead2 Mfg MDT [facility] Location RV [facility] Location RA [facility] Lower Rate (bpm) 60 {beats}/min [facility] Max Sensor Rate (bmp) 120 {beats}/min [facility] Model [id number] [place] XT DR MRI Cl [facility] Model 3830 SelectSecure MR I SureScan [facility] Model 5076 CapSureFix Novus [facility] PM-Device Mfg MDT [facility] PM-Percent Pacing (A) 13.82 % [facility] PM-Percent Pacing (V) 9.69 % [facility] PM-PMT Intervention ENABLED [facility] PM-PVC Intervention ENABLED [facility] PM-Rate Modulation Acceleration Reaction 30 s [facility] PM-Rate Modulation ADL Rate (bpm) 95 {beats}/min [facility] PM-Rate Modulation Deceleration Exercise [facility] PM-Rate Modulation [place] 3 [facility] PM-Rate Modulation Threshold Low [facility] RA Bipolar Impedance ohms 437 ohm [facility] RA Unipolar Impedance ohms 285 ohm [facility] RV Bipolar Impedance ohms 418 ohm [facility] RV Unipolar Impedance 323 ohm [facility] Serial Number [id number] [facility] Serial Number [id number] [facility] Serial Number [id number] [facility] Thresh RA Capture Amplitude (volts) 0.75 V [facility] Thresh RA Capture Duration (ms) 0.4 ms [facility] Thresh RA Sensing Amplitude (mvolts) 0.25 mV [facility] Thresh RV Capture Amplitude (volts) 1 V [facility] Thresh RV Capture Duration (ms) 0.4 ms [facility] Thresh RV Sensing Amplitude (mvolts) 13.375 mV [facility] Tracking Rate (bpm) 120 {beats}/min [facility] ECHO TRANSESOPHAGEALon 03-03 [facility] No Panel Informationon 03-03 BLANK _ [facility] Implant Date 10/21/2020 [facility]ER [facility]IN[facility] CHECKon AV Delay Adaptive Paced Minimum (ms) 180 ms [facility] AV Delay Adaptive Sensed Minimum (ms) 150 ms [facility] AV Delay Adaptive Status DISABLED [facility] Battery Voltage (volts) 3.03 V [facility] Pavan RA Pacing Amplitude (volts) 1.5 V [facility] Pavan RA Pacing Polarity BI [facility] Pavan RA Pacing Pulse Width (ms) 0.4 ms [facility] Pavan RA Sensing Amplitude (mvolts) 0.3 mV [facility] Pavan RA Sensing Blanking Period (ms) 150 ms [facility] Pavan RA Sensing Polarity BI [facility] Pavan RA Sensing Refractory Period (ms) Auto [facility] Pavan RV Pacing Amplitude (volts) 2 V [facility] P[facility] RV Pacing Polarity BI [facility] Pavan RV Pacing Pulse Width (ms) 0.4 ms [facility] Pavan RV Sensing Amplitude (mvolts) 0.9 mV [facility] P[facility] RV Sensing Blanking Period (ms) 200 ms [facility] Pavan RV Sensing Polarity BI [facility] Hysteresis Rate (bpm) DISABLED [facility] Lead1 Mfg MDT [facility] Lead2 Mfg MDT [facility] Location RV [facility] Location RA [facility] Lower Rate (bpm) 60 {beats}/min [facility] Max Sensor Rate (bmp) 120 {beats}/min [facility] Model [id number] [place] XT DR MRI Cl [facility] Model 3830 SelectSecure MR I SureScan [facility] Model 5076 CapSureFix Novus [facility] Pacemaker Dependent? NO [facility] PM-Device Mfg MDT [facility] PM-Percent Pacing (A) 3.4 % [facility] PM-Percent Pacing (V) 14.6 % [facility] PM-PMT Intervention ENABLED [facility] PM-PVC Intervention ENABLED [facility] PM-Rate Modulation Acceleration Reaction 30 s [facility] PM-Rate Modulation ADL Rate (bpm) 95 {beats}/min [facility] PM-Rate Modulation Deceleration Exercise [facility] PM-Rate Modulation [place] 3 [facility] PM-Rate Modulation Threshold Low [facility] RA Bipolar Impedance ohms 456 ohm [facility] RA Unipolar Impedance ohms 285 ohm [facility] Rhythm Atrial Fibrillation [facility] RV Bipolar Impedance ohms 437 ohm [facility] RV Unipolar Impedance 342 ohm [facility] Serial Number [id number] [facility] Serial Number [id number] [facility] Serial Number [id number] [facility] Thresh RA Capture Amplitude (volts) 0.75 V [facility] Thresh RA Capture Duration (ms) 0.4 ms [facility] Thresh RA Sensing Amplitude (mvolts) 0.375 mV [facility] Thresh RV Capture Amplitude (volts) 0.875 V [facility] Thresh RV Capture Duration (ms) 0.4 ms [facility] Thresh RV Sensing Amplitude (mvolts) 12.75 mV [facility] Tracking Rate (bpm) 120 {beats}/min [facility] HEMOGLOBIN (HGB)on Hemoglobin (Bld) [Mass/Vol] 8.1 g/dL Low 11.5 - 15.5 g/dL [facility] Hematocrit Auto (Bld) [Volum e fraction]on 02-20-2022 Hematocrit (Bld) [Volume fraction] 26.4 % Low 36.0 - 46.0 % [facility] No Panel Informationon 01-09 BLANK _ [facility] Implant Date 10/21/2020 [facility] CHECKon AV Delay Adaptive Paced Minimum (ms) 180 ms [facility] AV Delay Adaptive Sensed Minimum (ms) 150 ms [facility] AV Delay Adaptive Status DISABLED [facility] Battery Voltage (volts) 3.04 V [facility] P[facility] RA Pacing Amplitude (volts) 1.5 V [facility] Pavan RA Pacing Polarity BI [facility] Pavan RA Pacing Pulse Width (ms) 0.4 ms [facility] Pavan RA Sensing Amplitude (mvolts) 0.3 mV [facility] Pavan RA Sensing Blanking Period (ms) 150 ms [facility] Pavan RA Sensing Polarity BI [facility] Pavan RA Sensing Refractory Period (ms) Auto [facility] RV Pacing Amplitude (volts) 2 V [facility] P[facility] RV Pacing Polarity BI [facility] Pavan RV Pacing Pulse Width (ms) 0.4 ms [facility] P[facility] RV Sensing Amplitude (mvolts) 0.9 mV [facility] P[facility] RV Sensing Blanking Period (ms) 200 ms [facility] Pavan RV Sensing Polarity BI [facility] Hysteresis Rate (bpm) DISABLED [facility] Lead1 Mfg MDT [facility] Lead2 Mfg MDT [facility] Location RV [facility] Location RA [facility] Lower Rate (bpm) 60 {beats}/min [facility] Max Sensor Rate (bmp) 120 {beats}/min [facility] Model [id number] [place] XT DR MRI Cl [facility] Model 3830 SelectSecure MR I SureScan [facility] Model 5076 CapSureFix Novus [facility] Pacemaker Dependent? NO [facility] PM-Device Karlg MDT [facility] PM-Percent Pacing (A) 32.01 % [facility] PM-Percent Pacing (V) 13.19 % [facility] PM-PMT Intervention ENABLED [facility] PM-PVC Intervention ENABLED [facility] PM-Rate Modulation Acceleration Reaction 30 s [facility] PM-Rate Modulation ADL Rate (bpm) 95 {beats}/min [facility] PM-Rate Modulation Deceleration Exercise [facility] PM-Rate Modulation [place] 3 [facility] PM-Rate Modulation Threshold Low [facility] RA Bipolar Impedance ohms 456 ohm [facility] RA Unipolar Impedance ohms 285 ohm [facility] Rhythm Atrial Fibrillation [facility] RV Bipolar Impedance ohms 437 ohm [facility] RV Unipolar Impedance 342 ohm [facility] Serial Number [id number] [facility] Serial Number [id number] [facility] Serial Number [id number] [facility] Thresh RA Capture Amplitude (volts) 0.75 V [facility] Thresh RA Capture Duration (ms) 0.4 ms [facility] Thresh RA Sensing Amplitude (mvolts) 0.375 mV [facility] Thresh RV Capture Amplitude (volts) 1 V [facility] Thresh RV Capture Duration (ms) 0.4 ms [facility] Thresh RV Sensing Amplitude (mvolts) 13.6 mV [facility] Tracking Rate (bpm) 120 {beats}/min [facility] EGD DIAGNOSTICon 01-02-2022 [facility] CBC panel Auto (Bld)on 12-26 Erythrocyte distribution width (RBC) [Ratio] 16.8 % High 11.5 - 15.0 % [facility] Hematocrit (Bld) [Volume fraction] 28.2 % Low 36.0 - 46.0 % [facility] Hemoglobin (Bld) [Mass/Vol] 8.1 g/dL Low 11.5 - 15.5 g/dL [facility] MCH (RBC) [Entitic mass] 24.5 pg Low 26.0 - 34.0 pg [facility] MCHC (RBC) [Mass/Vol] 28.7 g/dL Low 30.5 - 36.0 g/dL [facility] MCV (RBC) [Entitic vol] 85.5 fL 80.0 - 100.0 fL [facility] Nucleated RBC (Bld) [#/Vol] 10*3/uL <0.01 k/uL [facility] Platelet mean volume (Bld) [Entitic vol] 10.3 fL 9.0 - 12.7 fL [facility] Platelets (Bld) [#/Vol] 248 10*3/uL 150 - 400 k/uL [facility] RBC (Bld) [#/Vol] 3.30 10*6/uL Low 3.90 - 5.2 0 m/uL [facility] WBC (Bld) [#/Vol] 10.54 10*3/uL 3.70 - 11 .00 k/uL [facility] CBC panel Auto (Bld)on 12-15 Erythrocyte distribution width (RBC) [Ratio] 15.7 % High 11.5 - 15.0 % [facility] Hematocrit (Bld) [Volume fraction] 31.0 % Low 36.0 - 46.0 % [facility] Hemoglobin (Bld) [Mass/Vol] 9.3 g/dL Low 11.5 - 15.5 g/dL [facility] MCH (RBC) [Entitic mass] 24.4 pg Low 26.0 - 34.0 pg [facility] MCHC (RBC) [Mass/Vol] 30.0 g/dL Low 30.5 - 36.0 g/dL [facility] MCV (RBC) [Entitic vol] 81.4 fL 80.0 - 100.0 fL [facility] Nucleated RBC (Bld) [#/Vol] 10*3/uL <0.01 k/uL [facility] Platelet mean volume (Bld) [Entitic vol] 10.0 fL 9.0 - 12.7 fL [facility] Platelets (Bld) [#/Vol] 273 10*3/uL 150 - 400 k/uL [facility] RBC (Bld) [#/Vol] 3.81 10*6/uL Low 3.90 - 5.2 0 m/uL [facility] WBC (Bld) [#/Vol] 9.78 10*3/uL 3.70 - 11. 00 k/uL [facility] HbA1c (Bld)on 12-15-2021 Average glucose Estimated from glycated hemoglobin (Bld) [Mass/Vol] 157 mg/dL [facility] HbA1c (d) [Mass fraction] 7.1 % High 4.3 - 5.6 % [facility] Lipid 1996 panelon 2 Cholesterol [Mass/Vol] 121 mg/dL <200 mg/dL [facility] Cholesterol in HDL [Mass/Vol] 43 mg/dL >39 mg/dL [facility] Cholesterol in LDL [Mass/Vol] 59 mg/dL <100 mg/dL [facility] Cholesterol in LDL/Cholesterol in HDL [Mass ratio] 1.37 {ratio} <2.54 [facility] Cholesterol in VLDL [Mass/Vol] 19 mg/dL <30 mg/dL [facility] Cholesterol non HDL [Mass/Vol] 78 mg/dL <130 mg/dL [facility] Cholesterol.total/Gin sterol in HDL [Mass ratio] 2.81 {ratio} <5.10 [facility] Fasting Time 12 hrs [facility] Triglyceride [Mass/Vol] 93 mg/dL <150 mg/dL [facility] XR HIP GENERAL 3V PELV/AP/LA T LEFTon 12-15-2021 [facility] XR Pelvis and Hip - left AP and Lateral frogon 12-15-2021 IMPRESSION: NEGATIVE HIP. 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 RESULT: Supine radiograph of the pelvis as well as AP and frogleg views of the left hip demonstrate the bony pelvic ring intact. The hips are bilaterally symmetric without fracture or dislocation. No acute bony process is noted. The soft tissues demonstrate aortoiliac calcification [id number] [id number] N OF RADIOLOGY Provider, [place] [facility] - 12/15/2021 * * *Final Report* [...] relevant examinations available for comparison within the [facility] Archives. RESULT: Supine radiograph of the pelvis as well as AP and frogleg views of the left hip demonstrate the bony pelvic ring intact. The hips are bilaterally symmetric without fracture or dislocation. No acute bony process is noted. The soft tissues demonstrate aortoiliac calcification IMPRESSION IMPRESSION: NEGATIVE HIP. 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: PSCB Transcribe Date/Time: Dec 15 2021 12:36P Dictated by : JUAN MOSCOSO MD This examination was interpreted and the report reviewed and electronically signed by: JUAN MOSCOSO MD on Dec 15 2021 12:38PM EST [facility] Radiology Study observation (narrative) Chris Miranda XR Pelvis and Hip - left AP and Lateral frogOrdered By: Ccf Provider on 12-15-2021 [facility] No Panel Informationon 12-13 BLANK _ [facility] Implant Date 10/21/2020 [facility] PACEMAKER REMOTE CHECKon AV Delay Adaptive Paced Minimum (ms) 180 ms [facility] AV Delay Adaptive Sensed Minimum (ms) 150 ms [facility] AV Delay Adaptive Status DISABLED [facility] Battery Voltage (volts) 3.04 V C [facility] Pavan RA Pacing Amplitude (volts) 1.5 V [facility] Pavan RA Pacing Polarity BI [facility] Pavan RA Pacing Pulse Width (ms) 0.4 ms [facility] Pavan RA Sensing Amplitude (mvolts) 0.3 mV [facility] Pavan RA Sensing Blanking Period (ms) 150 ms [facility] Pavan RA Sensing Polarity BI [facility] Pavan RA Sensing Refractory Period (ms) Auto [facility] Pavan RV Pacing Amplitude (volts) 2 V [facility] Pavan RV Pacing Polarity BI [facility] Pavan RV Pacing Pulse Width (ms) 0.4 ms [facility] Pavan RV Sensing Amplitude (mvolts) 0.9 mV [facility] Pavan RV Sensing Blanking Period (ms) 200 ms [facility] Pavan RV Sensing Polarity BI [facility] Hysteresis Rate (bpm) DISABLED [facility] Lead1 Mfg MDT [facility] Lead2 Mfg MDT [facility] Location RV [facility] Location RA [facility] Lower Rate (bpm) 60 {beats}/min [facility] Max Sensor Rate (bmp) 120 {beats}/min [facility] Model [id number] [place] XT DR MRI Cl [facility] Model 3830 SelectSecure MR I SureScan [facility] Model 5076 CapSureFix Novus [facility] PM-Device Mfg MDT [facility] PM-Percent Pacing (A) 0.2 % [facility] PM-Percent Pacing (V) 19.48 % [facility] PM-PMT Intervention ENABLED [facility] PM-PVC Intervention ENABLED [facility] PM-Rate Modulation Acceleration Reaction 30 s [facility] PM-Rate Modulation ADL Rate (bpm) 95 {beats}/min [facility] PM-Rate Modulation Deceleration Exercise [facility] PM-Rate Modulation [place] 3 [facility] PM-Rate Modulation Threshold Low [facility] RA Bipolar Impedance ohms 475 ohm [facility] RA Unipolar Impedance ohms 285 ohm [facility] RV Bipolar Impedance ohms 418 ohm [facility] RV Unipolar Impedance 323 ohm [facility] Serial Number [id number] [facility] Serial Number [id number] [facility] Serial Number [id number] [facility] Thresh RA Capture Amplitude (volts) 0.75 V [facility] Thresh RA Capture Duration (ms) 0.4 ms [facility] Thresh RA Sensing Amplitude (mvolts) 0.5 mV [facility] Thresh RV Capture Amplitude (volts) 0.875 V [facility] Thresh RV Capture Duration (ms) 0.4 ms [facility] Thresh RV Sensing Amplitude (mvolts) 12.625 mV [facility] Tracking Rate (bpm) 120 {beats}/min [facility] No Panel Informationon 09-26 BLANK _ [facility] Implant Date 10/21/2020 [facility] PACEMAKER REMOTE CHECKon AV Delay Adaptive Paced Minimum (ms) 180 ms [facility] AV Delay Adaptive Sensed Minimum (ms) 150 ms [facility] AV Delay Adaptive Status DISABLED [facility] Battery Voltage (volts) 3.06 V [facility] Pavan RA Pacing Amplitude (volts) 1.5 V [facility] Pavan RA Pacing Polarity BI [facility] Pavan RA Pacing Pulse Width (ms) 0.4 ms [facility] Pavan RA Sensing Amplitude (mvolts) 0.3 mV [facility] Pavan RA Sensing Blanking Period (ms) 150 ms [facility] Pavan RA Sensing Polarity BI [facility] Pavan RA Sensing Refractory Period (ms) Auto [facility] Pavan RV Pacing Amplitude (volts) 2 V [facility] Pavan RV Pacing Polarity BI [facility] Pavan RV Pacing Pulse Width (ms) 0.4 ms [facility] Pavan RV Sensing Amplitude (mvolts) 0.9 mV [facility] Pavan RV Sensing Blanking Period (ms) 200 ms [facility] Pavan RV Sensing Polarity BI [facility] Hysteresis Rate (bpm) DISABLED [facility] Lead1 Mfg MDT [facility] Lead2 Mfg MDT [facility] Location RV [facility] Location RA [facility] Lower Rate (bpm) 60 {beats}/min [facility] Max Sensor Rate (bmp) 120 {beats}/min [facility] Model [id number] [place] XT DR MRI Cl [facility] Model 3830 SelectSecure MR I SureScan [facility] Model 5076 [facility] PM-Device Mfg MDT [facility] PM-Percent Pacing (A) 0.09 % [facility] PM-Percent Pacing (V) 23.44 % [facility] PM-PMT Intervention ENABLED [facility] PM-PVC Intervention ENABLED [facility] PM-Rate Modulation Acceleration Reaction 30 s [facility] PM-Rate Modulation ADL Rate (bpm) 95 {beats}/min [facility] PM-Rate Modulation Deceleration Exercise [facility] PM-Rate Modulation [place] 3 [facility] PM-Rate Modulation Threshold Low [facility] RA Bipolar Impedance ohms 532 ohm [facility] RA Unipolar Impedance ohms 304 ohm [facility] RV Bipolar Impedance ohms 418 ohm [facility] RV Unipolar Impedance 342 ohm [facility] Serial Number [id number] [facility] Serial Number [id number] [facility] Serial Number [id number] [facility] Thresh RA Capture Amplitude (volts) 0.75 V [facility] Thresh RA Capture Duration (ms) 0.4 ms [facility] Thresh RA Sensing Amplitude (mvolts) 0.625 mV [facility] Thresh RV Capture Amplitude (volts) 0.875 V [facility] Thresh RV Capture Duration (ms) 0.4 ms [facility] Thresh RV Sensing Amplitude (mvolts) 12 mV [facility] Tracking Rate (bpm) 120 {beats}/min [facility] PROGRESSon 03-08-2019 PROGRESS HNO ID: [id number] Author: Sheree Logan (Rt) Manolo Elaine Service: Radiology Author Type: Seasonal Driver Type: Progress Notes Filed: 03/08/2019 2:55 PM [...] RT Echo March 08, 2019 2:55 PM [facility] XR CHEST 2V FRONTAL/LATon XR CHEST [...] mm nodule right lung base. 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 However, the mobile MRI scanner was not capable of performing the needed MR angiographic sequences. All charges related to the examination was canceled. IMPRESSION: Nondiagnostic MRA study as noted with all charges canceled. The study is to be rescheduled at [facility] main [place]. Normal [facility] Vital Signs Date Time Vital Sign Value Performing Clinician Jabari rogers 05-10-2025 11:34-0500 Body temperature 97.4 [degF] Deysi Collazo BRAND STRATEGY MANAGER-C Work Phone: [facility] 05-10-2025 11:34-0500 Diastolic blood pressure 97 mm[Hg] Deysi Collazo NP-C Work Phone: [facility] 05-10-2025 11:34-0500 Heart rate 84 /min Deysi Collazo NP-C Work Phone: [facility] 05-10-2025 11:34-0500 Respiratory rate 18 /min Deysi Haagen BRAND STRATEGY MANAGER-C Work Phone: 5(653)509-981768 [place] [address] 05-10-2025 11:34-0500 Systolic blood pressure 149 mm[Hg] Deysi Haagen BRAND STRATEGY MANAGER-C Work Phone: 9(553)964-386068 [place] [address] 05-07-2025 07:36-0500 Body mass index (BMI) [Ratio] 24 kg/m2 Deysi Haagen BRAND STRATEGY MANAGER-C Work Phone: 2(462)601-779168 [place] [address] 05-07-2025 07:36-0500 Body weight 61.68 kg Deysi Haagen BRAND STRATEGY MANAGER-C Work Phone: 6(176)620-224768 [place] [address] 05-07-2025 07:36-0500 Diastolic blood pressure 78 mm[Hg] Deysi Haagen BRAND STRATEGY MANAGER-C Work Phone: 1(279)366-393368 [place] [address] 05-07-2025 07:36-0500 Heart rate 86 /min Deysi Haagen BRAND STRATEGY MANAGER-C Work Phone: 0(235)837-911668 [place] [address] 05-07-2025 07:36-0500 Respiratory rate 18 /min Deysi Haagen BRAND STRATEGY MANAGER-C Work Phone: 4(216)180-255268 [place] [address] 05-07-2025 07:36-0500 SaO2% (BldA) [Mass fraction] 98 % Deysi Haagen BRAND STRATEGY MANAGER-C Work Phone: 4(357)236-514768 [place] [address] 05-07-2025 07:36-0500 Systolic blood pressure 137 mm[Hg] Deysi Haagen BRAND STRATEGY MANAGER-C Work Phone: 1(336)467-483668 [place] [address] 05-03-2025 11:15-0400 Body temperature 98.1 [degF] Deysi Haagen BRAND STRATEGY MANAGER-C Work Phone: 1(520)174-400768 [place] [address] 05-03-2025 11:15-0400 Diastolic blood pressure 81 mm[Hg] Deysi Haagen BRAND STRATEGY MANAGER-C Work Phone: 0(491)993-486868 [place] [address] 05-03-2025 11:15-0400 Heart rate 98 /min Deysi Haagen BRAND STRATEGY MANAGER-C Work Phone: 9(746)434-759568 [place] [address] 05-03-2025 11:15-0400 Respiratory rate 17 /min Deysi Haagen BRAND STRATEGY MANAGER-C Work Phone: 8(361)833-199768 [place] [address] 05-03-2025 11:15-0400 Systolic blood pressure 148 mm[Hg] Deysi Haagen BRAND STRATEGY MANAGER-C Work Phone: 7(592)763-669868 [place] [address] 04-24-2025 15:30-0400 Body height 160.02 cm Deysi Haagen BRAND STRATEGY MANAGER-C Work Phone: 7(045)497-592168 [place] [address] 04-24-2025 15:30-0400 Body mass index (BMI) [Ratio] 24.3 kg/m2 Deysi Haagen BRAND STRATEGY MANAGER-C Work Phone: 5(221)090-483668 [place] [address] 04-24-2025 15:30-0400 Body temperature 97.5 [degF] Deysi Haagen BRAND STRATEGY MANAGER-C Work Phone: 4(892)134-011368 [place] [address] 04-24-2025 15:30-0400 Body weight 62.36 kg Deysi Haagen BRAND STRATEGY MANAGER-C Work Phone: 7(740)063-966568 [place] [address] 04-24-2025 15:30-0400 Diastolic blood pressure 73 mm[Hg] Deysi Haagen BRAND STRATEGY MANAGER-C Work Phone: 3(728)207-615268 [place] [address] 04-24-2025 15:30-0400 Heart rate 83 /min Deysi Haagen BRAND STRATEGY MANAGER-C Work Phone: 4(829)401-937468 [place] [address] 04-24-2025 15:30-0400 Respiratory rate 16 /min Deysi Haagen BRAND STRATEGY MANAGER-C Work Phone: 2(881)105-321568 [place] [address] 04-24-2025 15:30-0400 SaO2% (BldA) [Mass fraction] 95 % Deysi Haagen BRAND STRATEGY MANAGER-C Work Phone: 5(805)363-255568 [place] [address] 04-24-2025 15:30-0400 Systolic blood pressure 152 mm[Hg] Deysi Haagen BRAND STRATEGY MANAGER-C Work Phone: 4(404)550-758268 [place] [address] 03-29-2025 11:05-0400 Body temperature 98.2 [degF] Deysi Haagen BRAND STRATEGY MANAGER-C Work Phone: 4(946)176-801968 [place] [address] 03-29-2025 11:05-0400 Diastolic blood pressure 67 mm[Hg] Deysi Haagen BRAND STRATEGY MANAGER-C Work Phone: 1(980)530-355368 [place] [address] 03-29-2025 11:05-0400 Heart rate 89 /min Deysi Haagen BRAND STRATEGY MANAGER-C Work Phone: 9(532)369-296968 [place] [address] 03-29-2025 11:05-0400 Respiratory rate 16 /min Deysi Haagen BRAND STRATEGY MANAGER-C Work Phone: 2(178)709-021068 [place] [address] 03-29-2025 11:05-0400 SaO2% (BldA) [Mass fraction] 100 % Deysi Haagen BRAND STRATEGY MANAGER-C Work Phone: 2(549)625-530668 [place] [address] 03-29-2025 11:05-0400 Systolic blood pressure 145 mm[Hg] Deysi Haagen BRAND STRATEGY MANAGER-C Work Phone: 5(663)508-268368 [place] [address] 03-27-2025 16:35-0400 Body temperature 96.9 [degF] Deysi Haagen BRAND STRATEGY MANAGER-C Work Phone: 1(421)407-663368 [place] [address] 03-27-2025 16:35-0400 Diastolic blood pressure 48 mm[Hg] Deysi Haagen BRAND STRATEGY MANAGER-C Work Phone: 3(465)225-615568 [place] [address] 03-27-2025 16:35-0400 Heart rate 74 /min Deysi Haagen BRAND STRATEGY MANAGER-C Work Phone: 2(027)561-356268 [place] [address] 03-27-2025 16:35-0400 Respiratory rate 16 /min Deysi Haagen BRAND STRATEGY MANAGER-C Work Phone: 4(364)912-031468 [place] [address] 03-27-2025 16:35-0400 SaO2% (BldA) [Mass fraction] 100 % Deysi Haagen BRAND STRATEGY MANAGER-C Work Phone: 2(689)480-286168 [place] [address] 03-27-2025 16:35-0400 Systolic blood pressure 144 mm[Hg] Deysi Haagen BRAND STRATEGY MANAGER-C Work Phone: 3(167)811-638168 [place] [address] 03-27-2025 14:21-0400 Body height 160.02 cm Deysi Haagen BRAND STRATEGY MANAGER-C Work Phone: 3(982)293-366768 [place] [address] 03-27-2025 14:21-0400 Body mass index (BMI) [Ratio] 23.3 kg/m2 Deysi Haagen BRAND STRATEGY MANAGER-C Work Phone: 9(657)219-220468 [place] [address] 03-27-2025 14:21-0400 Body weight 59.87 kg Deysi Haagen BRAND STRATEGY MANAGER-C Work Phone: 7(011)076-837868 [place] [address] 03-22-2025 03:56-0400 Body temperature 98 [degF] Deysi Haagen BRAND STRATEGY MANAGER-C Work Phone: 6(241)065-217968 [place] [address] 03-22-2025 03:56-0400 Diastolic blood pressure 65 mm[Hg] Deysi Haagen BRAND STRATEGY MANAGER-C Work Phone: 6(531)646-119068 [place] [address] 03-22-2025 03:56-0400 Heart rate 81 /min Deysi Haagen BRAND STRATEGY MANAGER-C Work Phone: 8(003)359-807668 [place] [address] 03-22-2025 03:56-0400 Respiratory rate 18 /min Deysi Haagen BRAND STRATEGY MANAGER-C Work Phone: 6(175)697-936768 [place] [address] 03-22-2025 03:56-0400 SaO2% (BldA) [Mass fraction] 99 % Deysi Haagen BRAND STRATEGY MANAGER-C Work Phone: 6(253)266-135068 [place] [address] 03-22-2025 03:56-0400 Systolic blood pressure 161 mm[Hg] Deysi Haagen BRAND STRATEGY MANAGER-C Work Phone: 4(941)538-902668 [place] [address] 03-22-2025 03:36-0400 Body height 160.02 cm Deysi Haagen BRAND STRATEGY MANAGER-C Work Phone: 4(805)913-509068 [place] [address] 03-22-2025 03:36-0400 Body mass index (BMI) [Ratio] 24.9 kg/m2 Deysi Haagen BRAND STRATEGY MANAGER-C Work Phone: 4(127)350-773368 [place] [address] 03-22-2025 03:36-0400 Body weight 63.8 kg Deysi Haagen BRAND STRATEGY MANAGER-C Work Phone: 7(689)060-930068 [place] [address] 03-20-2025 12:20-0400 Body temperature 97.2 [degF] Deysi Haagen BRAND STRATEGY MANAGER-C Work Phone: 8(239)922-338168 [place] [address] 03-20-2025 12:20-0400 Diastolic blood pressure 56 mm[Hg] Deysi Haagen BRAND STRATEGY MANAGER-C Work Phone: 3(895)873-055968 [place] [address] 03-20-2025 12:20-0400 Heart rate 82 /min Deysi Haagen BRAND STRATEGY MANAGER-C Work Phone: 2(840)575-805668 [place] [address] 03-20-2025 12:20-0400 Respiratory rate 16 /min Deysi Haagen BRAND STRATEGY MANAGER-C Work Phone: 6(676)863-504168 [place] [address] 03-20-2025 12:20-0400 SaO2% (BldA) [Mass fraction] 100 % Deysi Haagen BRAND STRATEGY MANAGER-C Work Phone: 1(419)115-780568 [place] [address] 03-20-2025 12:20-0400 Systolic blood pressure 125 mm[Hg] Deysi Haagen BRAND STRATEGY MANAGER-C Work Phone: 0(951)381-461768 [place] [address] 03-20-2025 09:24-0400 Body mass index (BMI) [Ratio] 22.8 kg/m2 Deysi Haagen BRAND STRATEGY MANAGER-C Work Phone: 8(210)064-006968 [place] [address] 03-20-2025 09:24-0400 Body weight 58.51 kg Deysi Haagen BRAND STRATEGY MANAGER-C Work Phone: 5(478)033-022868 [place] [address] 03-15-2025 11:36-0400 Body temperature 96.4 [degF] Deysi Haagen BRAND STRATEGY MANAGER-C Work Phone: 8(188)532-701468 [place] [address] 03-15-2025 11:36-0400 Diastolic blood pressure 57 mm[Hg] Deysi Haagen BRAND STRATEGY MANAGER-C Work Phone: 2(318)007-584768 [place] [address] 03-15-2025 11:36-0400 Heart rate 87 /min Deysi Haagen BRAND STRATEGY MANAGER-C Work Phone: 1(807)250-688868 [place] [address] 03-15-2025 11:36-0400 Respiratory rate 14 /min Deysi Haagen BRAND STRATEGY MANAGER-C Work Phone: 5(698)676-601568 [place] [address] 03-15-2025 11:36-0400 Systolic blood pressure 133 mm[Hg] Deysi Haagen BRAND STRATEGY MANAGER-C Work Phone: 8(667)515-181430 [place] [address] 03-13-2025 14:06-0400 Body height 160.02 cm Deysi Collazo BRAND STRATEGY MANAGER-C Work Phone: 6(708)156-456830 [place] [address] 03-13-2025 14:06-0400 Body mass index (BMI) [Ratio] 23.6 kg/m2 Deysi Haagen BRAND STRATEGY MANAGER-C Work Phone: 0(334)180-287468 [place] [address] 03-13-2025 14:06-0400 Body temperature 96.6 [degF] Deysi Haagen BRAND STRATEGY MANAGER-C Work Phone: 4(706)292-114168 [place] [address] 03-13-2025 14:06-0400 Body weight 60.55 kg Deysi Haagen BRAND STRATEGY MANAGER-C Work Phone: 7(189)982-583668 [place] [address] 03-13-2025 14:06-0400 Diastolic blood pressure 71 mm[Hg] Deysi Haagen BRAND STRATEGY MANAGER-C Work Phone: 3(679)765-927068 [place] [address] 03-13-2025 14:06-0400 Heart rate 91 /min Deysi Haagen BRAND STRATEGY MANAGER-C Work Phone: 4(998)923-235568 [place] [address] 03-13-2025 14:06-0400 Respiratory rate 16 /min Deysi Haagen BRAND STRATEGY MANAGER-C Work Phone: 2(154)471-684468 [place] [address] 03-13-2025 14:06-0400 SaO2% (BldA) [Mass fraction] 93 % Deysi Haagen BRAND STRATEGY MANAGER-C Work Phone: 0(279)360-121568 [place] [address] 03-13-2025 14:06-0400 Systolic blood pressure 152 mm[Hg] Deysi Haagen BRAND STRATEGY MANAGER-C Work Phone: 6(081)791-987068 [place] [address] 03-08-2025 09:53-0400 Body temperature 96.8 [degF] Deysi Haagen BRAND STRATEGY MANAGER-C Work Phone: 1(711)046-911868 [place] [address] 03-08-2025 09:53-0400 Diastolic blood pressure 40 mm[Hg] Deysi Haagen BRAND STRATEGY MANAGER-C Work Phone: 1(922)877-353068 [place] [address] 03-08-2025 09:53-0400 Heart rate 75 /min Deysi Haagen BRAND STRATEGY MANAGER-C Work Phone: [facility] 03-08-2025 09:53-0400 Respiratory rate 18 /min Deysi Haagen BRAND STRATEGY MANAGER-C Work Phone: [facility] 03-08-2025 09:53-0400 Systolic blood pressure 145 mm[Hg] Deysi Haagen BRAND STRATEGY MANAGER-C Work Phone: [facility] 03-01-2025 09:12-0400 Body temperature 97.1 [degF] Deysi Haagen BRAND STRATEGY MANAGER-C Work Phone: 7(085)905-035768 [place] [address] 03-01-2025 09:12-0400 Diastolic blood pressure 65 mm[Hg] Deysi Haagen BRAND STRATEGY MANAGER-C Work Phone: 1(280)283-824868 [place] [address] 03-01-2025 09:12-0400 Heart rate 79 /min Deysi Haagen BRAND STRATEGY MANAGER-C Work Phone: 7(204)087-511068 [place] [address] 03-01-2025 09:12-0400 Respiratory rate 18 /min Deysi Haagen BRAND STRATEGY MANAGER-C Work Phone: 6(279)018-212668 [place] [address] 03-01-2025 09:12-0400 Systolic blood pressure 125 mm[Hg] Deysi Haagen BRAND STRATEGY MANAGER-C Work Phone: 0(410)396-608968 [place] [address] 02-16-2025 17:24-0400 Body temperature 98 [degF] Deysi Haagen BRAND STRATEGY MANAGER-C Work Phone: 7(339)781-832468 [place] [address] 02-16-2025 17:24-0400 Diastolic blood pressure 72 mm[Hg] Deysi Haagen BRAND STRATEGY MANAGER-C Work Phone: 4(130)555-792868 [place] [address] 02-16-2025 17:24-0400 Heart rate 75 /min Deysi Haagen BRAND STRATEGY MANAGER-C Work Phone: 4(383)821-024868 [place] [address] 02-16-2025 17:24-0400 Respiratory rate 19 /min Deysi Haagen BRAND STRATEGY MANAGER-C Work Phone: 5(787)148-999068 [place] [address] 02-16-2025 17:24-0400 SaO2% (BldA) [Mass fraction] 100 % Deysi Haagen BRAND STRATEGY MANAGER-C Work Phone: 2(835)552-999768 [place] [address] 02-16-2025 17:24-0400 Systolic blood pressure 154 mm[Hg] Deysi Haagen BRAND STRATEGY MANAGER-C Work Phone: 7(926)962-214168 [place] [address] 02-16-2025 12:09-0400 Body mass index (BMI) [Ratio] 25.8 kg/m2 Deysi Haagen BRAND STRATEGY MANAGER-C Work Phone: 6(871)643-889768 [place] [address] 02-16-2025 12:09-0400 Body weight 66.22 kg Deysi Haagen BRAND STRATEGY MANAGER-C Work Phone: 5(623)739-338768 [place] [address] 02-16-2025 11:26-0400 Body height 160.02 cm Deysi Haagen BRAND STRATEGY MANAGER-C Work Phone: 9(216)402-924268 [place] [address] 02-16-2025 11:26-0400 Inhaled oxygen flow rate 2 L/min Deysi Haagen BRAND STRATEGY MANAGER-C Work Phone: 9(235)744-232568 [place] [address] 02-05-2025 08:57-0400 Body height 160.02 cm Deysi Haagen BRAND STRATEGY MANAGER-C Work Phone: 4(608)775-309368 [place] [address] 02-05-2025 08:57-0400 Body mass index (BMI) [Ratio] 24.7 kg/m2 Deysi Haagen BRAND STRATEGY MANAGER-C Work Phone: 6(038)033-456768 [place] [address] 02-05-2025 08:57-0400 Body weight 63.5 kg Deysi Haagen BRAND STRATEGY MANAGER-C Work Phone: 4(080)128-005668 [place] [address] 02-05-2025 08:57-0400 Diastolic blood pressure 64 mm[Hg] Deysi Haagen BRAND STRATEGY MANAGER-C Work Phone: 8(292)693-909168 [place] [address] 02-05-2025 08:57-0400 Heart rate 77 /min Deysi Haagen BRAND STRATEGY MANAGER-C Work Phone: 2(683)883-504568 [place] [address] 02-05-2025 08:57-0400 Respiratory rate 16 /min Deysi Haagen BRAND STRATEGY MANAGER-C Work Phone: 6(414)431-654268 [place] [address] 02-05-2025 08:57-0400 Systolic blood pressure 143 mm[Hg] Deysi Haagen BRAND STRATEGY MANAGER-C Work Phone: 4(382)050-13[address] [place] [address] 01-11-2025 10:44-0400 Heart rate 71 /min Deysi Haagen BRAND STRATEGY MANAGER-C Work Phone: 3(351)209-826968 [place] [address] 01-11-2025 08:59-0400 Body temperature 98.1 [degF] Deysi Haagen BRAND STRATEGY MANAGER-C Work Phone: 5(581)407-244468 [place] [address] 01-11-2025 08:59-0400 Diastolic blood pressure 55 mm[Hg] Deysi Haagen BRAND STRATEGY MANAGER-C Work Phone: 7(569)040-486268 [place] [address] 01-11-2025 08:59-0400 Respiratory rate 18 /min Deysi Haagen BRAND STRATEGY MANAGER-C Work Phone: 5(524)652-913068 [place] [address] 01-11-2025 08:59-0400 SaO2% (BldA) [Mass fraction] 100 % Deysi Haagen BRAND STRATEGY MANAGER-C Work Phone: 7(976)261-475168 [place] [address] 01-11-2025 08:59-0400 Systolic blood pressure 153 mm[Hg] Deysi Haagen BRAND STRATEGY MANAGER-C Work Phone: 1(004)629-202868 [place] [address] 01-11-2025 05:50-0400 Body mass index (BMI) [Ratio] 28 kg/m2 Deysi Haagen BRAND STRATEGY MANAGER-C Work Phone: 1(870)576-345168 [place] [address] 01-11-2025 05:50-0400 Body weight 71.8 kg Deysi Haagen BRAND STRATEGY MANAGER-C Work Phone: 6(629)707-723668 [place] [address] 01-08-2025 10:03-0400 Body height 160.02 cm Deysi Haagen BRAND STRATEGY MANAGER-C Work Phone: 5(134)475-876168 [place] [address] 01-07-2025 17:11-0400 Diastolic blood pressure 66 mm[Hg] Deysi Haagen BRAND STRATEGY MANAGER-C Work Phone: 8(656)477-242568 [place] [address] 01-07-2025 17:11-0400 Heart rate 75 /min Deysi Haagen BRAND STRATEGY MANAGER-C Work Phone: 2(197)492-974868 [place] [address] 01-07-2025 17:11-0400 Respiratory rate 16 /min Deysi Haagen BRAND STRATEGY MANAGER-C Work Phone: [facility] 01-07-2025 17:11-0400 SaO2% (BldA) [Mass fraction] 100 % Deysi Collazo BRAND STRATEGY MANAGER-C Work Phone: [facility] 01-07-2025 17:11-0400 Systolic blood pressure 154 mm[Hg] Deysigladys Collazo BRAND STRATEGY MANAGER-C Work Phone: [facility] 01-07-2025 16:28-0400 Body temperature 97.7 [degF] Deysigladys Collazo BRAND STRATEGY MANAGER-C Work Phone: [facility] 01-07-2025 13:27-0400 Body mass index (BMI) [Ratio] 27.5 kg/m2 Deysi Hadon BRAND STRATEGY MANAGER-C Work Phone: [facility] 01-07-2025 13:27-0400 Body weight 70.48 kg Deysi Collazo BRAND STRATEGY MANAGER-C Work Phone: [facility] 01-07-2025 12:47-0400 Body height 160.02 cm Deysi Hadon BRAND STRATEGY MANAGER-C Work Phone: [facility] 01-01-2025 10:29-0400 Body height 157.5 cm Carla Burdick MD Work Phone: [facility] 01-01-2025 10:29-0400 Body mass index (BMI) [Ratio] 27.18 kg/m2 Carla Burdick MD Work Phone: [facility] 01-01-2025 10:29-0400 Body weight 67.41 kg Carla Burdick MD Work Phone: [facility] 01-01-2025 10:29-0400 Diastolic blood pressure 60 mm[Hg] Carla Burdick MD Work Phone: [facility] 01-01-2025 10:29-0400 Heart rate 84 /min Carla Burdick MD Work Phone: [facility] 01-01-2025 10:29-0400 Respiratory rate 18 /min Carla Burdick MD Work Phone: [facility] 01-01-2025 10:29-0400 SaO2% (BldA) [Mass fraction] 100 % Carla Burdick MD Work Phone: [facility] 01-01-2025 10:29-0400 Systolic blood pressure 156 mm[Hg] Carla Burdick MD Work Phone: [facility] 12-20-2024 08:29-0400 Body mass index (BMI) [Ratio] 27.18 kg/m2 Lars Silva DO Work Phone: [facility] 12-20-2024 08:29-0400 Body weight 67.4 kg Lars Silva DO Work Phone: [facility] 12-20-2024 08:29-0400 Diastolic blood pressure 75 mm[Hg] Lars Silva DO Work Phone: [facility] 12-20-2024 08:29-0400 Heart rate 77 /min Lars Silva DO Work Phone: [facility] 12-20-2024 08:29-0400 SaO2% (BldA) [Mass fraction] 100 % Lars Silva DO Work Phone: [facility] 12-20-2024 08:29-0400 Systolic blood pressure 154 mm[Hg] Lars Silva DO Work Phone: [facility] 12-19-2024 11:38-0400 Diastolic blood pressure 54 mm[Hg] Albin Aurin UNDERWRITING SALES REPRESENTATIVE.BRANCH LEAD Work Phone: [facility] Comment on above: post IV lasix 12-19-2024 11:38-0400 Systolic blood pressure 157 mm[Hg] Albin Aurin UNDERWRITING SALES REPRESENTATIVE.BRANCH LEAD Work Phone: [facility] Comment on above: post IV lasix 12-19-2024 10:56-0400 Body mass index (BMI) [Ratio] 26.34 kg/m2 Albin Aurin UNDERWRITING SALES REPRESENTATIVE.BRANCH LEAD Work Phone: [facility] 12-19-2024 10:56-0400 Body weight 65.32 kg Albin Gu UNDERWRITING SALES REPRESENTATIVE.BRANCH LEAD Work Phone: [facility] 12-19-2024 10:56-0400 Heart rate 79 /min Albin Gu UNDERWRITING SALES REPRESENTATIVE.BRANCH LEAD Work Phone: [facility] 12-19-2024 10:56-0400 SaO2% (BldA) [Mass fraction] 99 % Albin Gu UNDERWRITING SALES REPRESENTATIVE.BRANCH LEAD Work Phone: [facility] 11-20-2024 08:06-0400 Body height 157.5 cm Carla Burdick MD Work Phone: [facility] 11-20-2024 08:06-0400 Body mass index (BMI) [Ratio] 26.3 kg/m2 Carla Burdick MD Work Phone: [facility] 11-20-2024 08:06-0400 Body weight 65.23 kg Carla Burdick MD Work Phone: [facility] 11-20-2024 08:06-0400 Diastolic blood pressure 62 mm[Hg] Carla Burdick MD Work Phone: [facility] 11-20-2024 08:06-0400 Heart rate 84 /min Carla Burdick MD Work Phone: [facility] 11-20-2024 08:06-0400 Respiratory rate 12 /min Carla Burdick MD Work Phone: [facility] 11-20-2024 08:06-0400 SaO2% (BldA) [Mass fraction] 99 % Carla Burdick MD Work Phone: [facility] 11-20-2024 08:06-0400 Systolic blood pressure 154 mm[Hg] Carla Burdick MD Work Phone: [facility] 11-06-2024 15:03-0400 Body height 157.5 cm Carla Burdick MD Work Phone: [facility] 11-06-2024 15:03-0400 Body mass index (BMI) [Ratio] 27.8 kg/m2 Carla Burdick MD Work Phone: [facility] 11-06-2024 15:03-0400 Body weight 68.95 kg Carla Burdick MD Work Phone: [facility] 11-06-2024 15:03-0400 Diastolic blood pressure 54 mm[Hg] Carla Burdick MD Work Phone: [facility] 11-06-2024 15:03-0400 Heart rate 68 /min Carla Burdick MD Work Phone: [facility] 11-06-2024 15:03-0400 Respiratory rate 12 /min Carla Burdick MD Work Phone: [facility] 11-06-2024 15:03-0400 SaO2% (BldA) [Mass fraction] 100 % Carla Burdick MD Work Phone: [facility] 11-06-2024 15:03-0400 Systolic blood pressure 134 mm[Hg] Carla Burdick MD Work Phone: [facility] 11-03-2024 10:06-0400 Diastolic blood pressure 44 mm[Hg] Albin Aurin UNDERWRITING SALES REPRESENTATIVE.BRANCH LEAD Work Phone: [facility] 11-03-2024 10:06-0400 Systolic blood pressure 121 mm[Hg] Albin Aurin UNDERWRITING SALES REPRESENTATIVE.BRANCH LEAD Work Phone: [facility] 11-03-2024 08:56-0400 Body mass index (BMI) [Ratio] 26.89 kg/m2 Albin Aurin UNDERWRITING SALES REPRESENTATIVE.BRANCH LEAD Work Phone: [facility] 11-03-2024 08:56-0400 Body weight 66.68 kg Albin Aurin UNDERWRITING SALES REPRESENTATIVE.BRANCH LEAD Work Phone: [facility] 11-03-2024 08:56-0400 Heart rate 66 /min Ablin Aurin UNDERWRITING SALES REPRESENTATIVE.BRANCH LEAD Work Phone: [facility] 11-03-2024 08:56-0400 SaO2% (BldA) [Mass fraction] 100 % Albin Aurin UNDERWRITING SALES REPRESENTATIVE.BRANCH LEAD Work Phone: [facility] 10-31-2024 11:09-0400 Body mass index (BMI) [Ratio] 25.97 kg/m2 Shaye Domingo APRN.BRANCH LEAD Work Phone: [facility] 10-31-2024 11:09-0400 Body weight 64.41 kg Shaye Domingo APRN.BRANCH LEAD Work Phone: [facility] 10-31-2024 11:09-0400 Diastolic blood pressure 68 mm[Hg] Shaye Domingo APRN.BRANCH LEAD Work Phone: [facility] 10-31-2024 11:09-0400 Heart rate 84 /min Shaye Domingo UNDERWRITING SALES REPRESENTATIVE.BRANCH LEAD Work Phone: [facility] 10-31-2024 11:09-0400 Systolic blood pressure 147 mm[Hg] Shaye Domingo UNDERWRITING SALES REPRESENTATIVE.BRANCH LEAD Work Phone: [facility] 04-07-2024 09:30-0400 Body mass index (BMI) [Ratio] 25.06 kg/m2 Albin Gu APRN.BRANCH LEAD Work Phone: [facility] 04-07-2024 09:30-0400 Body weight 62.14 kg Albin Gu UNDERWRITING SALES REPRESENTATIVE.BRANCH LEAD Work Phone: [facility] 04-07-2024 09:30-0400 Diastolic blood pressure 47 mm[Hg] Albin Gu UNDERWRITING SALES REPRESENTATIVE.BRANCH LEAD Work Phone: [facility] 04-07-2024 09:30-0400 Heart rate 91 /min Albin Gu APRN.BRANCH LEAD Work Phone: [facility] 04-07-2024 09:30-0400 SaO2% (BldA) [Mass fraction] 98 % Albin Quinteroin UNDERWRITING SALES REPRESENTATIVE.BRANCH LEAD Work Phone: [facility] 04-07-2024 09:30-0400 Systolic blood pressure 142 mm[Hg] Albin Gu UNDERWRITING SALES REPRESENTATIVE.BRANCH LEAD Work Phone: [facility] 01-17-2024 09:50-0400 Body height 157.5 cm Carla Burdick MD Work Phone: [facility] 01-17-2024 09:50-0400 Body mass index (BMI) [Ratio] 26.92 kg/m2 Carla Burdick MD Work Phone: [facility] 01-17-2024 09:50-0400 Body weight 66.77 kg Carla Burdick MD Work Phone: [facility] 01-17-2024 09:50-0400 Diastolic blood pressure 59 mm[Hg] Carla Burdick MD Work Phone: [facility] 01-17-2024 09:50-0400 Heart rate 64 /min Carla Burdick MD Work Phone: [facility] 01-17-2024 09:50-0400 SaO2% (BldA) [Mass fraction] 99 % Carla Burdick MD Work Phone: [facility] 01-17-2024 09:50-0400 Systolic blood pressure 157 mm[Hg] Carla Burdick MD Work Phone: [facility] 12-07-2023 11:46-0400 Diastolic blood pressure 76 mm[Hg] Deysi Haagen UNDERWRITING SALES REPRESENTATIVE.BRANCH LEAD Work Phone: [facility] 12-07-2023 11:46-0400 Heart rate 68 /min Deysi Haagen UNDERWRITING SALES REPRESENTATIVE.BRANCH LEAD Work Phone: [facility] 12-07-2023 11:46-0400 Respiratory rate 16 /min Deysi Haagen UNDERWRITING SALES REPRESENTATIVE.BRANCH LEAD Work Phone: [facility] 12-07-2023 11:46-0400 SaO2% (BldA) [Mass fraction] 97 % Deysi Haagen UNDERWRITING SALES REPRESENTATIVE.BRANCH LEAD Work Phone: [facility] 12-07-2023 11:46-0400 Systolic blood pressure 128 mm[Hg] Deysi Haagen UNDERWRITING SALES REPRESENTATIVE.BRANCH LEAD Work Phone: [facility] 11-25-2023 10:42-0400 Diastolic blood pressure 37 mm[Hg] Albin Gu UNDERWRITING SALES REPRESENTATIVE.BRANCH LEAD Work Phone: [facility] 11-25-2023 10:42-0400 Systolic blood pressure 160 mm[Hg] Albin Quinteroin UNDERWRITING SALES REPRESENTATIVE.BRANCH LEAD Work Phone: [facility] 11-25-2023 10:00-0400 Body mass index (BMI) [Ratio] 26.89 kg/m2 Albin Aurin UNDERWRITING SALES REPRESENTATIVE.BRANCH LEAD Work Phone: [facility] 11-25-2023 10:00-0400 Body weight 66.68 kg Albin Aurin UNDERWRITING SALES REPRESENTATIVE.BRANCH LEAD Work Phone: [facility] 11-25-2023 10:00-0400 Heart rate 60 /min Albin Aurin UNDERWRITING SALES REPRESENTATIVE.BRANCH LEAD Work Phone: [facility] 11-25-2023 10:00-0400 SaO2% (BldA) [Mass fraction] 98 % Albin Quinteroin UNDERWRITING SALES REPRESENTATIVE.BRANCH LEAD Work Phone: [facility] 11-22-2023 09:09-0400 Body mass index (BMI) [Ratio] 27.44 kg/m2 Deysi Collazo UNDERWRITING SALES REPRESENTATIVE.BRANCH LEAD Work Phone: [facility] 11-22-2023 09:09-0400 Body weight 68.04 kg Deysi Collazo UNDERWRITING SALES REPRESENTATIVE.BRANCH LEAD Work Phone: [facility] 11-22-2023 09:09-0400 Diastolic blood pressure 76 mm[Hg] Deysi Haagen UNDERWRITING SALES REPRESENTATIVE.BRANCH LEAD Work Phone: [facility] 11-22-2023 09:09-0400 Heart rate 67 /min Deysi Haagen UNDERWRITING SALES REPRESENTATIVE.BRANCH LEAD Work Phone: [facility] 11-22-2023 09:09-0400 Respiratory rate 16 /min Deysi Haagen UNDERWRITING SALES REPRESENTATIVE.BRANCH LEAD Work Phone: [facility] 11-22-2023 09:09-0400 SaO2% (BldA) [Mass fraction] 98 % Deysi Collazo UNDERWRITING SALES REPRESENTATIVE.BRANCH LEAD Work Phone: [facility] 11-22-2023 09:09-0400 Systolic blood pressure 128 mm[Hg] Deysi Haagen UNDERWRITING SALES REPRESENTATIVE.BRANCH LEAD Work Phone: [facility] 11-08-2023 16:36-0400 Body mass index (BMI) [Ratio] 29.98 kg/m2 Bere Boykin UNDERWRITING SALES REPRESENTATIVE.BRANCH LEAD Work Phone: [facility] 11-08-2023 16:36-0400 Body weight 73.17 kg Bere Boykin UNDERWRITING SALES REPRESENTATIVE.C BRAND STRATEGY MANAGER Work Phone: [facility] 11-08-2023 16:36-0400 Diastolic blood pressure 70 mm[Hg] Bere Boykin UNDERWRITING SALES REPRESENTATIVE.BRANCH LEAD Work Phone: [facility] 11-08-2023 16:36-0400 Heart rate 94 /min Bere Boykin UNDERWRITING SALES REPRESENTATIVE.C BRAND STRATEGY MANAGER Work Phone: [facility] 11-08-2023 16:36-0400 SaO2% (BldA) [Mass fraction] 95 % Bere Boykin UNDERWRITING SALES REPRESENTATIVE.BRANCH LEAD Work Phone: [facility] 11-08-2023 16:36-0400 Systolic blood pressure 156 mm[Hg] Bere Boykin UNDERWRITING SALES REPRESENTATIVE.BRANCH LEAD Work Phone: [facility] 11-04-2023 08:08-0400 Body mass index (BMI) [Ratio] 29.74 kg/m2 NA Le PA-C Work Phone: [facility] 11-04-2023 08:08-0400 Body weight 72.58 kg NA Le PA-C Work Phone: [facility] 11-04-2023 08:08-0400 Diastolic blood pressure 70 mm[Hg] NA Le PA-C Work Phone: [facility] 11-04-2023 08:08-0400 Heart rate 88 /min NA Le PA-C Work Phone: [facility] 11-04-2023 08:08-0400 Respiratory rate 20 /min NA Le PA-C Work Phone: [facility] 11-04-2023 08:08-0400 SaO2% (BldA) [Mass fraction] 97 % NA Le PA-C Work Phone: [facility] 11-04-2023 08:08-0400 Systolic blood pressure 130 mm[Hg] NA Le PA-C Work Phone: [facility] 10-18-2023 13:11-0400 Diastolic blood pressure 76 mm[Hg] NA Le PA-C Work Phone: [facility] 10-18-2023 13:11-0400 Systolic blood pressure 144 mm[Hg] NA Le PA-C Work Phone: [facility] 10-18-2023 13:04-0400 Body weight 75.48 kg NA Le PA-C Work Phone: [facility] 10-18-2023 13:04-0400 Heart rate 90 /min NA Le PA-C Work Phone: [facility] 10-18-2023 13:04-0400 Respiratory rate 20 /min NA Le PA-C Work Phone: [facility] 10-18-2023 13:04-0400 SaO2% (BldA) [Mass fraction] 99 % NA Le PA-C Work Phone: [facility] 10-14-2023 14:40-0400 Diastolic blood pressure 73 mm[Hg] Lars Silva DO Work Phone: [facility] 10-14-2023 14:40-0400 Heart rate 85 /min Lars Silva DO Work Phone: [facility] 10-14-2023 14:40-0400 SaO2% (BldA) [Mass fraction] 97 % Lars Silva DO Work Phone: [facility] 10-14-2023 14:40-0400 Systolic blood pressure 153 mm[Hg] Lars Silva DO Work Phone: [facility] 07-05-2023 11:19-0500 Body temperature 98.49 [degF] Bijan Cole MD Work Phone: [facility] 07-05-2023 11:19-0500 Body weight 71.31 kg Bijan Cole MD Work Phone: [facility] 07-05-2023 11:19-0500 Diastolic blood pressure 80 mm[Hg] Bijan Cole MD Work Phone: [facility] 07-05-2023 11:19-0500 Heart rate 90 /min Bijan Cole MD Work Phone: [facility] 07-05-2023 11:19-0500 Respiratory rate 20 /min Bijan Cole MD Work Phone: [facility] 07-05-2023 11:19-0500 SaO2% (BldA) [Mass fraction] 98 % Bijan Cole MD Work Phone: [facility] 07-05-2023 11:19-0500 Systolic blood pressure 158 mm[Hg] Bijan Cole MD Work Phone: [facility] 01-07-2023 08:44-0400 Body weight 65.77 kg NA Le PA-C Work Phone: [facility] 01-07-2023 08:44-0400 Diastolic blood pressure 72 mm[Hg] NA Le PA-C Work Phone: [facility] 01-07-2023 08:44-0400 Heart rate 70 /min NA Le PA-C Work Phone: [facility] 01-07-2023 08:44-0400 Respiratory rate 16 /min NA Le PA-C Work Phone: [facility] 01-07-2023 08:44-0400 SaO2% (BldA) [Mass fraction] 96 % NA Le PA-C Work Phone: [facility] 01-07-2023 08:44-0400 Systolic blood pressure 136 mm[Hg] NA Le PA-C Work Phone: [facility] 10-06-2022 09:13-0400 Body weight 66.22 kg NA Le PA-C Work Phone: [facility] 10-06-2022 09:13-0400 Diastolic blood pressure 68 mm[Hg] NA Le PA-C Work Phone: [facility] 10-06-2022 09:13-0400 Heart rate 81 /min NA Le PA-C Work Phone: [facility] 10-06-2022 09:13-0400 Respiratory rate 18 /min NA Le PA-C Work Phone: [facility] 10-06-2022 09:13-0400 SaO2% (BldA) [Mass fraction] 96 % NA Le PA-C Work Phone: [facility] 10-06-2022 09:13-0400 Systolic blood pressure 144 mm[Hg] NA Le PA-C Work Phone: [facility] 09-28-2022 09:15-0400 Body height 156.2 cm Carla Burdick MD Work Phone: [facility] 09-28-2022 09:15-0400 Body weight 68.4 kg Carla Burdick MD Work Phone: [facility] 09-28-2022 09:15-0400 Diastolic blood pressure 74 mm[Hg] Carla Burdick MD Work Phone: [facility] 09-28-2022 09:15-0400 Heart rate 78 /min Carla Burdick MD Work Phone: [facility] 09-28-2022 09:15-0400 Systolic blood pressure 128 mm[Hg] Carla Burdick MD Work Phone: [facility] 07-07-2022 08:56-0500 Body weight 65.32 kg NA Le PA-C Work Phone: [facility] 07-07-2022 08:56-0500 Diastolic blood pressure 62 mm[Hg] NA Le PA-C Work Phone: [facility] 07-07-2022 08:56-0500 Heart rate 74 /min NA Le PA-C Work Phone: [facility] 07-07-2022 08:56-0500 Respiratory rate 16 /min NA Le PA-C Work Phone: [facility] 07-07-2022 08:56-0500 SaO2% (BldA) [Mass fraction] 97 % NA Le PA-C Work Phone: [facility] 07-07-2022 08:56-0500 Systolic blood pressure 148 mm[Hg] NA Le PA-C Work Phone: [facility] 05-14-2022 09:27-0500 Body temperature 98.91 [degF] Sonny Lund MD Work Phone: [facility] 05-14-2022 09:27-0500 Body weight 68.49 kg Sonny Lund MD Work Phone: [facility] 05-14-2022 09:27-0500 Diastolic blood pressure 72 mm[Hg] Sonny Lund MD Work Phone: [facility] 05-14-2022 09:27-0500 Heart rate 84 /min Sonny Lund MD Work Phone: [facility] 05-14-2022 09:27-0500 Respiratory rate 16 /min Sonny Lund MD Work Phone: [facility] 05-14-2022 09:27-0500 SaO2% (BldA) [Mass fraction] 98 % Sonny Lund MD Work Phone: [facility] 05-14-2022 09:27-0500 Systolic blood pressure 147 mm[Hg] Sonny Lund MD Work Phone: [facility] 04-28-2022 09:09-0400 Body temperature 97.3 [degF] Treatment Wstr Work Phone: [facility] 04-28-2022 09:09-0400 Diastolic blood pressure 62 mm[Hg] Treatment Wstr Work Phone: [facility] 04-28-2022 09:09-0400 Heart rate 83 /min Treatment Wstr Work Phone: [facility] 04-28-2022 09:09-0400 Systolic blood pressure 122 mm[Hg] Treatment Wstr Work Phone: [facility] 04-22-2022 10:54-0400 Body temperature 97.11 [degF] Treatment Wstr Work Phone: [facility] 04-22-2022 10:54-0400 Diastolic blood pressure 68 mm[Hg] Treatment Wstr Work Phone: [facility] 04-22-2022 10:54-0400 Heart rate 102 /min Treatment Wstr Work Phone: [facility] 04-22-2022 10:54-0400 Systolic blood pressure 135 mm[Hg] Treatment Wstr Work Phone: [facility] 04-20-2022 09:30-0400 Body temperature 97.9 [degF] Treatment Wstr Work Phone: [facility] 04-20-2022 09:30-0400 Diastolic blood pressure 61 mm[Hg] Treatment Wstr Work Phone: [facility] 04-20-2022 09:30-0400 Heart rate 98 /min Treatment Wstr Work Phone: [facility] 04-20-2022 09:30-0400 Systolic blood pressure 130 mm[Hg] Treatment Wstr Work Phone: [facility] 04-17-2022 15:31-0400 Body temperature 98.1 [degF] Treatment Wstr Work Phone: [facility] 04-17-2022 15:31-0400 Diastolic blood pressure 66 mm[Hg] Treatment Wstr Work Phone: [facility] 04-17-2022 15:31-0400 Heart rate 97 /min Treatment Wstr Work Phone: [facility] 04-17-2022 15:31-0400 SaO2% (BldA) [Mass fraction] 99 % Treatment Wstr Work Phone: [facility] 04-17-2022 15:31-0400 Systolic blood pressure 137 mm[Hg] Treatment Wstr Work Phone: [facility] 04-09-2022 11:33-0400 Body height 161.3 cm Brayan Chicas MD Work Phone: [facility] 04-09-2022 11:33-0400 Body weight 67.59 kg Brayan Chicas MD Work Phone: [facility] 04-06-2022 10:44-0400 Body weight 66.68 kg NA Le PA-C Work Phone: [facility] 04-06-2022 10:44-0400 Diastolic blood pressure 72 mm[Hg] NA Le PA-C Work Phone: [facility] 04-06-2022 10:44-0400 Heart rate 95 /min NA Le PA-C Work Phone: [facility] 04-06-2022 10:44-0400 Respiratory rate 24 /min NA Le PA-C Work Phone: [facility] 04-06-2022 10:44-0400 SaO2% (BldA) [Mass fraction] 99 % NA Le PA-C Work Phone: [facility] 04-06-2022 10:44-0400 Systolic blood pressure 148 mm[Hg] NA Le PA-C Work Phone: [facility] 03-30-2022 08:49-0400 Body weight 65.32 kg Carla Burdick MD Work Phone: [facility] 03-30-2022 08:49-0400 Diastolic blood pressure 64 mm[Hg] Carla Burdick MD Work Phone: [facility] 03-30-2022 08:49-0400 Heart rate 90 /min Carla Burdick MD Work Phone: [facility] 03-30-2022 08:49-0400 SaO2% (BldA) [Mass fraction] 100 % Carla Burdick MD Work Phone: [facility] 03-30-2022 08:49-0400 Systolic blood pressure 144 mm[Hg] Carla Burdick MD Work Phone: [facility] 03-19-2022 11:07-0400 Body weight 69.85 kg NA Le PA-C Work Phone: [facility] 03-19-2022 11:07-0400 Diastolic blood pressure 66 mm[Hg] NA Le PA-C Work Phone: [facility] 03-19-2022 11:07-0400 Heart rate 112 /min NA Le PA-C Work Phone: [facility] 03-19-2022 11:07-0400 Respiratory rate 24 /min NA Le PA-C Work Phone: [facility] 03-19-2022 11:07-0400 SaO2% (BldA) [Mass fraction] 97 % NA Le PA-C Work Phone: [facility] 03-19-2022 11:07-0400 Systolic blood pressure 148 mm[Hg] NA Le PA-C Work Phone: [facility] 03-03-2022 13:45-0400 Body height 160 cm Radha Brian UNDERWRITING SALES REPRESENTATIVE.BRANCH LEAD Work Phone: [facility] 03-03-2022 13:45-0400 Body weight 63.5 kg Radha Brian UNDERWRITING SALES REPRESENTATIVE.BRANCH LEAD Work Phone: [facility] 03-03-2022 13:45-0400 Diastolic blood pressure 72 mm[Hg] Radha Brian UNDERWRITING SALES REPRESENTATIVE.BRANCH LEAD Work Phone: [facility] 03-03-2022 13:45-0400 Heart rate 98 /min Radha Brian UNDERWRITING SALES REPRESENTATIVE.BRANCH LEAD Work Phone: [facility] 03-03-2022 13:45-0400 Systolic blood pressure 141 mm[Hg] Radha Brian UNDERWRITING SALES REPRESENTATIVE.BRANCH LEAD Work Phone: [facility] 03-03-2022 13:00-0400 Diastolic blood pressure 62 mm[Hg] Transesophageal Main [facility] 03-03-2022 13:00-0400 Heart rate 105 /min Transesophageal [facility] 03-03-2022 13:00-0400 SaO2% (BldA) [Mass fraction] 94 % Transesophageal Main [facility] 03-03-2022 13:00-0400 Systolic blood pressure 129 mm[Hg] Transesophageal [facility] 03-03-2022 12:50-0400 Respiratory rate 12 /min Transesophageal [facility] 03-03-2022 10:56-0400 Body temperature 97.5 [degF] Transesophageal [facility] 02-20-2022 09:31-0400 Body weight 64.86 kg NA Le PA-C Work Phone: [facility] 02-20-2022 09:31-0400 Diastolic blood pressure 78 mm[Hg] NA Le PA-C Work Phone: [facility] 02-20-2022 09:31-0400 Heart rate 116 /min NA Le PA-C Work Phone: [facility] 02-20-2022 09:31-0400 Respiratory rate 16 /min NA Le PA-C Work Phone: [facility] 02-20-2022 09:31-0400 SaO2% (BldA) [Mass fraction] 100 % NA Le PA-C Work Phone: [facility] 02-20-2022 09:31-0400 Systolic blood pressure 132 mm[Hg] NA Le PA-C Work Phone: [facility] 01-16-2022 10:26-0400 Body temperature 98.49 [degF] NA Le PA-C Work Phone: [facility] 01-16-2022 10:26-0400 Body weight 64.41 kg NA Le PA-C Work Phone: [facility] 01-16-2022 10:26-0400 Diastolic blood pressure 72 mm[Hg] NA Le PA-C Work Phone: [facility] 01-16-2022 10:26-0400 Heart rate 92 /min NA Le PA-C Work Phone: [facility] 01-16-2022 10:26-0400 Respiratory rate 16 /min NA Le PA-C Work Phone: [facility] 01-16-2022 10:26-0400 SaO2% (BldA) [Mass fraction] 98 % NA Le PA-C Work Phone: [facility] 01-16-2022 10:26-0400 Systolic blood pressure 138 mm[Hg] NA Le PA-C Work Phone: [facility] 01-09-2022 14:25-0400 Diastolic blood pressure 66 mm[Hg] Emilia Diallo MD Work Phone: [facility] 01-09-2022 14:25-0400 Heart rate 95 /min Emilia Diallo MD Work Phone: [facility] 01-09-2022 14:25-0400 SaO2% (BldA) [Mass fraction] 99 % Emilia Diallo MD Work Phone: [facility] 01-09-2022 14:25-0400 Systolic blood pressure 133 mm[Hg] Emilia Diallo MD Work Phone: [facility] 01-02-2022 11:15-0400 Diastolic blood pressure 60 mm[Hg] Chai Encinas MD Work Phone: [facility] 01-02-2022 11:15-0400 Heart rate 89 /min Chai Encinas MD Work Phone: [facility] 01-02-2022 11:15-0400 SaO2% (BldA) [Mass fraction] 97 % Chai Encinas MD Work Phone: [facility] 01-02-2022 11:15-0400 Systolic blood pressure 134 mm[Hg] Chai Encinas MD Work Phone: [facility] 01-02-2022 11:00-0400 Respiratory rate 20 /min Chai Encinas MD Work Phone: [facility] 01-02-2022 10:42-0400 Body temperature 97.9 [degF] Chai Encinas MD Work Phone: [facility] 01-02-2022 08:59-0400 Body height 160 cm Chai Encinas MD Work Phone: [facility] 01-02-2022 08:59-0400 Body weight 65.77 kg Chai Encinas MD Work Phone: [facility] 01-01-2022 09:45-0400 Body height 160 cm Chai Encinas MD Work Phone: [facility] 01-01-2022 09:45-0400 Body temperature 97 [degF] Chai Encinas MD Work Phone: [facility] 01-01-2022 09:45-0400 Body weight 65.77 kg Chai Encinas MD Work Phone: [facility] 01-01-2022 09:45-0400 Diastolic blood pressure 52 mm[Hg] Chai Encinas MD Work Phone: [facility] 01-01-2022 09:45-0400 Heart rate 100 /min Chai Encinas MD Work Phone: [facility] 01-01-2022 09:45-0400 SaO2% (BldA) [Mass fraction] 98 % Chai Encinas MD Work Phone: [facility] 01-01-2022 09:45-0400 Systolic blood pressure 122 mm[Hg] Chai Encinas MD Work Phone: [facility] 12-30-2021 13:16-0400 Body temperature 96.9 [degF] [facility] Work Phone: 12-30-2021 13:16-0400 Diastolic blood pressure 54 mm[Hg] [facility] Work Phone: 12-30-2021 13:16-0400 Heart rate 73 /min [facility] Work Phone: 12-30-2021 13:16-0400 Respiratory rate 16 /min [facility] Work Phone: 12-30-2021 13:16-0400 SaO2% (BldA) [Mass fraction] 97 % [facility] Work Phone: 12-30-2021 13:16-0400 Systolic blood pressure 113 mm[Hg] [facility] Work Phone: 12-30-2021 08:17-0400 Body height 160.02 cm [facility] Work Phone: 12-15-2021 09:08-0400 Body temperature 98.2 [degF] NA Le PA-C Work Phone: [facility] 12-15-2021 09:08-0400 Body weight 66.04 kg NA Le PA-C Work Phone: [facility] 12-15-2021 09:08-0400 Diastolic blood pressure 64 mm[Hg] NA Le PA-C Work Phone: [facility] 12-15-2021 09:08-0400 Heart rate 97 /min NA Le PA-C Work Phone: [facility] 12-15-2021 09:08-0400 Respiratory rate 18 /min NA Le PA-C Work Phone: [facility] 12-15-2021 09:08-0400 SaO2% (BldA) [Mass fraction] 99 % NA Le PA-C Work Phone: [facility] 12-15-2021 09:08-0400 Systolic blood pressure 118 mm[Hg] NA El PA-C Work Phone: [facility] 11-26-2021 09:54-0400 Body height 160 cm Na Ramirez APRN.CN P Work Phone: [facility] 11-26-2021 09:54-0400 Body weight 65.77 kg Na Ramirez APRN.CN P Work Phone: [facility] 01-19-2019 10:25-0400 BMI (Body Mass Index) 28.62 kg/m2 [facility] 01-19-2019 10:25-0400 Body weight 72.12 kg [facility] 01-19-2019 10:25-0400 BP Diastolic 64 mm[Hg] [facility] 01-19-2019 10:25-0400 BP Systolic 134 mm[Hg] [facility] 01-19-2019 10:25-0400 Height 158.8 cm [facility] [employer] 01-19-2019 10:25-0400 Pulse (Heart Rate) 100 /min [facility] 01-19-2019 10:25-0400 Pulse Oximetry 99 % [facility] 01-19-2019 10:25-0400 Respiratory Rate 16 /min [facility] Encounters Encounter Date Encounter Type Care Provider Facility Start: 05-10-2025 ambulatory Vincent Chi [facility] Start: 05-07-2025 End: 05-07-2025 ambulatory Vincent Chi Mark [facility] Start: 05-03-2025 ambulatory Vincent Chi Mark [facility] Start: 05-03-2025 End: 05-04-2025 ambulatory Vincent Chi Mark Facility:[facility] Start: 05-02-2025 End: 05-02-2025 ambulatory Vincent Chi Mark Facility:[facility] Start: 04-24-2025 End: 04-24-2025 Dr. Ric Noriega MD -[facility] Work Phone: Start: 04-24-2025 End: 04-24-2025 ambulatory Deysi Collazo BRAND STRATEGY MANAGER-C Work Phone: -[facility] Start: 04-22-2025 End: 04-22-2025 ambulatory Vincent Chi Mark Facility:[facility] Start: 04-22-2025 End: 04-22-2025 Dr. Yaniv Masters MD -[facility] Work Phone: Start: 04-19-2025 Dr. Javi Abrams -[facility] Start: 04-12-2025 ambulatory Vincent Chi Mark [facility] Start: 04-12-2025 Dr. Ebony Cerrato MD -[facility] Work Phone: Start: 04-05-2025 ambulatory Vincent Chi Mark [facility] Start: 04-05-2025 Dr. Ebony Cerrato MD -[facility] Work Phone: Start: 04-05-2025 Dr. Ebony [facility]err[facility] Work Phone: Start: 04-02-2025 End: 04-02-2025 ambulatory Deysi Haagen BRAND STRATEGY MANAGER-C Work Phone: -[facility] Start: 04-02-2025 End: 04-02-2025 Dr. Vincent Flores MD -[facility] Start: 04-02-2025 End: 04-02-2025 ambulatory Vincent [facility] Facility:[facility] Start: 03-29-2025 End: 04-03-2025 ambulatory Deysi Haagen BRAND STRATEGY MANAGER-C Work Phone: [facility] Start: 03-29-2025 End: 04-03-2025 Dr. Ebony Cerrato MD [facility] Work Phone: Start: 03-27-2025 Dr. Ric rodriguez MD -[facility] Start: 03-22-2025 End: 03-22-2025 Deysi Haagen BRAND STRATEGY MANAGER-C Work Phone: -Emergency Department Work Phone: Start: 03-22-2025 End: 03-22-2025 Emergency department patient visit Deysi Haagen BRAND STRATEGY MANAGER-C Work Phone: -Emergency Department Start: 03-20-2025 Dr. Ric rodriguez MD -[facility] Start: 03-15-2025 ambulatory Vincent Chi Mark [facility] Start: 03-15-2025 Dr. Ebony Cerrato MD -[facility] Work Phone: Start: 03-13-2025 End: 03-13-2025 Dr. Ric Noriega MD -[facility] Work Phone: Start: 03-13-2025 End: 03-13-2025 ambulatory Deysi Haagen BRAND STRATEGY MANAGER-C Work Phone: -[facility] Start: 03-09-2025 ambulatory Vincent Chi Mark Facility:[facility] Start: 03-09-2025 End: 03-09-2025 ambulatory Deysi Haagen BRAND STRATEGY MANAGER-C Work Phone: -Laboratory Start: 03-09-2025 End: 03-09-2025 Dr. Vincent Flores MD -Laboratory Work Phone: Start: 03-08-2025 End: 03-09-2025 ambulatory Vincent Chi Mark Facility:[facility] Start: 03-08-2025 Dr. Ebony Cerrato MD -[facility] Work Phone: Start: 03-08-2025 Dr. Ebony Cerrato MD [facility] Work Phone: Start: 03-02-2025 End: 03-02-2025 ambulatory Deysigladys Collazo BRAND STRATEGY MANAGER-C Work Phone: -[facility]rd Flr Start: 03-02-2025 End: 03-02-2025 Dr. Vincent Flores MD -[facility] Start: 03-01-2025 ambulatory [facility] Chi [facility] Start: 03-01-2025 Dr. Ebony Cerrato MD -[facility] Work Phone: Start: 03-01-2025 End: 03-04-2025 Dr. Ebony Cerrato [facility] Work Phone: Start: 03-01-2025 End: 03-04-2025 ambulatory Deysi Haagen BRAND STRATEGY MANAGER-C Work Phone: [facility] Start: 02-27-2025 End: 02-27-2025 ambulatory Deysi Haagen BRAND STRATEGY MANAGER-C Work Phone: -[facility] Start: 02-27-2025 End: 02-27-2025 Dr. Vincent Flores MD -[facility] Start: 02-27-2025 End: 02-27-2025 ambulatory [facility] Facility:[facility] Start: 02-21-2025 End: 02-21-2025 ambulatory Deysi Haagen BRAND STRATEGY MANAGER-C Work Phone: -Laboratory Phy [facility]rd Fl[facility] Start: 02-21-2025 End: 02-21-2025 Dr. Vincent Flores MD -[facility] Start: 02-21-2025 End: 02-21-2025 ambulatory [facility] Facility:[facility] Start: 02-16-2025 End: 02-16-2025 Dr. Magdy Pang MD -Emergency Department Work Phone: Start: 02-16-2025 End: 02-16-2025 Emergency department patient visit Deysi Haagen BRAND STRATEGY MANAGER-C Work Phone: -Emergency Department Work Phone: Start: 02-13-2025 End: 02-13-2025 ambulatory Deysi Haagen BRAND STRATEGY MANAGER-C Work Phone: -Laboratory Start: 02-13-2025 End: 02-13-[address] Vincent Flores MD -Laboratory Work Phone: Start: 02-13-2025 End: 02-13-2025 Dr. Vincent Flores MD -Laboratory Work Phone: Start: 02-13-2025 End: 02-13-2025 ambulatory Vincent Cas Mark Facility:[facility] Start: 02-08-2025 End: 02-08-2025 ambulatory Deysi Haagen BRAND STRATEGY MANAGER-C Work Phone: -[facility] Start: 02-08-2025 End: 02-08-2025 Patient encounter procedure Pau Davis -[facility] Work Phone: Start: 02-08-2025 End: 02-08-2025 Dr. Yaniv Masters MD -[facility] Work Phone: Start: 02-05-2025 End: 02-05-[address] Juan Diego Huynh MD -[facility] Work Phone: Start: 02-05-2025 End: 02-05-2025 Dr. Juan Diego Huynh MD -[facility] Work Phone: Start: 02-05-2025 End: 02-05-2025 ambulatory Deysi Copeagen BRAND STRATEGY MANAGER-C Work Phone: -[facility] Start: 02-05-2025 End: 02-05-2025 ambulatory Vincent Chi Mark Facility:[facility] Start: 02-01-2025 End: 02-01-2025 ambulatory Deysi Hadon BRAND STRATEGY MANAGER-C Work Phone: -[facility]rd Fl[facility] Start: 02-01-2025 End: 02-01-[address] Vincent Flores MD -[facility] Start: 02-01-2025 End: 02-01-2025 Dr. Vincent Flores MD -[facility] Start: 02-01-2025 End: 02-01-2025 ambulatory Vincent Chi Mark Facility:[facility] Start: 01-26-2025 End: 01-30-2025 Refill Carla Burdick MD Work Phone: Cardiology Comment on above: Refill Request Start: 01-23-2025 End: 01-23-2025 ambulatory Deysi Hadon BRAND STRATEGY MANAGER-C Work Phone: -Laboratory Start: 01-23-2025 End: 01-23-[address] Jeremy Mcgarry MD -Laboratory Work Phone: Start: 01-23-2025 End: 01-23-2025 Dr. Jeremy Mcgarry MD -Laboratory Work Phone: Start: 01-23-2025 End: 01-23-2025 ambulatory Vincent Chi Mark Facility:[facility] Start: 01-11-2025 Non-patient / Non-visit Dr. Beryl Stovall DO [facility] Work Phone: Start: 01-11-2025 Dr. Dianne sapp [facility] Work Phone: Start: 01-10-2025 Non-patient / Non-visit Dr. Beryl metzger [facility] Work Phone: Start: 01-10-2025 Dr. Dianne sapp [facility] Work Phone: Start: 01-09-2025 Non-patient / Non-visit Dr. Beryl metzger [facility] Work Phone: Start: 01-09-2025 Dr. Dianne sapp [facility] Work Phone: Start: 01-08-2025 Non-patient / Non-visit Dr. Beryl metzger [facility] Work Phone: Start: 01-08-2025 Dr. Dianne sapp [facility] Work Phone: Start: 01-08-2025 ambulatory [facility] Start: 01-08-2025 Non-patient / Non-visit Dr. Jose UGARTE [facility] Start: 01-08-2025 Dr. Yaniv Masters MD [facility] Start: 01-08-2025 ambulatory Carla Suarez ty:[facility] Start: 01-08-2025 Non-patient / Non-visit Dr. Abundio wells MD -[facility] Start: 01-08-2025 Dr. Abundio Turcios MD [facility] Start: 01-07-2025 End: 01-11-2025 ambulatory Radha Heller Facility:[facility] Start: 01-07-2025 End: 01-11-2025 Evaluation and [...] Start: 01-01-2025 End: 01-01-2025 ambulatory CARLA BURDICK Facility:[facility] Start: 12-26-2024 End: 12-26-2024 Orders Only Albin Gu APRN.BRANCH LEAD Work Phone: Cardiology Comment on above: Returning Patient's Call Start: 12-20-2024 End: 02-19-2025 Follow-up encounter Deysi Collazo APRN.CNP Work Phone: [facility] Start: 12-20-2024 End: 12-20-2024 Patient encounter procedure Lars Silva DO Work Phone: Vascular Surgery Comment on above: Superior mesenteric artery stenosis (HCC) (Primary Dx) Start: 12-20-2024 End: 12-20-2024 ambulatory LARS SILVA Facility:[facility] Start: 12-19-2024 End: 12-19-2024 Patient encounter procedure Albin Gu APRN.CNP Work Phone: Cardiology Comment on above: Chronic diastolic co ngestive heart failure (HCC) (Primary Dx); Primary hypertension; SSS (sick sinus syndrome) (HCC); Longstanding persistent atrial fibrillation (HCC) Start: 12-19-2024 End: 12-19-2024 ambulatory ALBIN GU Facility:[facility] Start: 12-13-2024 End: 12-13-2024 Telephone encounter Deysi Collazo APRN.CNP Work Phone: [facility] Comment on above: Transition Of Care Start: 12-11-2024 End: 12-11-2024 Telephone encounter Deysi Collazo APRN.BRANCH LEAD Work Phone: [address] [place] [address] Start: 12-10-2024 End: 12-12-2024 Evaluation and management of inpatient [facility] Facility:[facility] Start: 12-01-2024 End: 12-01-2024 ambulatory CARLA BURDICK Facility:[facility] Start: 11-20-2024 End: 11-20-2024 Patient encounter procedure Carla Burdick MD Work Phone: Cardiology Comment on above: History of prostheti c aortic valve replacement (Primary Dx); Chronic diastolic (congestive) heart failure (HCC); Ascending aorta dilatation; Longstanding persistent atrial fibrillation (HCC); PAD (peripheral artery disease); Primary hypertension; Hyperlipidemia with target LDL less than 70; Acute mesenteric ischemia (HCC) Start: 11-20-2024 End: 11-20-2024 ambulatory CARLA BURDICK Facility:[facility] Start: 11-15-2024 End: 11-15-2024 Follow-up encounter Carla Burdick MD Work Phone: [facility] Cardiology [place] Start: 11-13-2024 End: 11-13-2024 ambulatory [facility] Facility:[facility] Start: 11-06-2024 End: 11-06-2024 ambulatory CARLA BURDICK Facility:[facility] Start: 11-06-2024 End: 11-06-2024 Patient encounter procedure [...] 11-03-2024 End: 11-03-2024 Telephone encounter Albin Gu APRN.BRANCH LEAD Work Phone: Cardiology Comment on above: Results Start: 11-03-2024 End: 11-03-2024 ambulatory ALBIN GU Facility:[facility] Start: 11-03-2024 End: 11-03-2024 Patient encounter procedure Albin Gu APRN.BRANCH LEAD Work Phone: Cardiology Comment on above: Chronic diastolic co ngestive heart failure (HCC) (Primary Dx); Primary hypertension; SSS (sick sinus syndrome) (HCC); Longstanding persistent atrial fibrillation (HCC); Stage 3b chronic kidney disease (HCC) Start: 11-03-2024 End: 11-03-2024 ambulatory ALBIN GU Facility:[facility] Start: 10-31-2024 End: 12-31-2024 Follow-up encounter Shaye Domingo APRN.CNP Work Phone: [facility] Start: 10-31-2024 End: 10-31-2024 ambulatory SHAYE DOMINGO Facility:[facility] Start: 10-31-2024 End: 10-31-2024 Office outpatient visit 25 minutes Shaye Domingo APRN.CNP Work Phone: [facility] Comment on above: Acute mesenteric [...] 10-12-2024 End: 10-12-2024 Telephone encounter Albin Gu APRN.BRANCH LEAD Work Phone: Cardiology Comment on above: Patient Update Start: 07-31-2024 End: 07-31-2024 Telephone encounter Melida Koo APRN.CNP Work Phone: Cardiology Start: 07-07-2024 End: 07-07-2024 ambulatory DIANNE LE Facility:[facility] Start: 07-07-2024 End: 07-07-2024 ambulatory DIANNE LE Facility:[facility] Start: 04-07-2024 End: 04-07-2024 Patient encounter procedure Albin Gu APRN.CNP Work Phone: Cardiology Comment on above: Chronic diastolic co ngestive heart failure (HCC) (Primary Dx); Primary hypertension; SSS (sick sinus syndrome) (HCC); Longstanding persistent atrial fibrillation (HCC) Start: 04-07-2024 End: 04-07-2024 ambulatory ALBIN GU Facility:[facility] Start: 03-14-2024 End: 03-14-2024 Refill Melida Koo APRN.BRANCH LEAD Work Phone: Cardiology Start: 02-21-2024 End: 02-21-2024 Telephone encounter Melida Koo APRN.BRANCH LEAD Work Phone: Cardiology Start: 02-17-2024 ambulatory Carla dempsey MD Work Phone: Cardiology Comment on above: NT Pro BNP Start: 02-15-2024 End: 02-15-2024 ambulatory DIANNE HAASORY LE Facility:[facility] Start: 02-07-2024 Telephone encounter Melida walker APRN.BRANCH LEAD Work Phone: Cardiology Comment on above: Recheck Chronic diastolic co ngestive heart failure (HCC) (Primary Dx) Start: 02-04-2024 Telephone encounter Albin amaro APRN.BRANCH LEAD Work Phone: Cardiology Comment on above: Appointment Results Start: 02-03-2024 End: 02-03-2024 ambulatory [facility] Facility:[facility] Start: 01-17-2024 End: 01-17-2024 [facility] Start: 01-17-2024 End: 01-17-2024 Patient encounter procedure [...] Office outpatient visit 15 minutes Deysi Collazo APRN.BRANCH LEAD Work Phone: [facility] Comment on above: URI, acute (Primary Dx) Start: 11-26-2023 ambulatory Valentine Meneses RN Ambulato ry Care Management Comment on above: YONG SAM RN ( ED Utilization Review per request of payer) Start: 11-25-2023 End: 11-25-2023 Patient encounter procedure Albin Gu APRN.BRANCH LEAD Work Phone: Cardiology Comment on above: Chronic diastolic co ngestive heart failure (HCC) (Primary Dx); Primary hypertension; SSS (sick sinus syndrome) (HCC); Longstanding persistent atrial fibrillation (HCC); Acute systolic CHF (congestive heart failure) (HCC) Start: 11-23-2023 ambulatory Ralph Foreman O Work Phone: Hematology/Oncology Comment on above: Results Start: 11-22-2023 End: 11-22-2023 Office outpatient visit 25 minutes Deysi Collazo APRN.BRANCH LEAD Work Phone: [facility] Comment on above: Acute systolic CHF ( congestive heart failure) (HCC) (Primary Dx); Hyponatremia; Hypokalemia Start: 11-19-2023 Telephone encounter Albin amaro APRN.BRANCH LEAD Work Phone: Cardiology Comment on above: Patient Question Start: 11-17-2023 Telephone encounter Gwen Valentine RN Cardiology Comment on above: 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 Utilization Review per Payer Request.) Start: 11-15-2023 Telephone encounter Nara Malone RN NOC Comment on above: Transition Of Care Start: 11-12-2023 Orders Only Ying Schmidt son UNDERWRITING SALES REPRESENTATIVE.BRANCH LEAD Work Phone: Cardiology Comment on above: Stage 3 chronic kidn ey disease, unspecified whether stage 3a or 3b CKD (HCC) (Primary Dx) Initial Consult (HEA RT FAILURE 16470 ) Start: 11-08-2023 End: 11-08-2023 Emergency department patient visit Doreen LE Facility:[facility] Start: 11-08-2023 End: 11-08-2023 Patient encounter [...] atrial fibrillation (HCC); SSS (sick sinus syndrome) ([facility]); S/P placement of cardiac pacemaker; Acute hip pain, right; Piriformis syndrome, right; Bilateral knee effusions; Primary osteoarthritis of both knees Start: 11-02-2023 ambulatory Doreen de la cruz PA-C Work Phone: [facility] Comment on above: moving forward Start: 11-02-2023 E-mail encounter fro m caregiver Doreen Le PA-C Work Phone: [facility] Start: 11-02-2023 Telephone encounter Doreen Le PA-C Work Phone: [facility] Comment on above: Results; Orders Start: 10-31-2023 Telephone encounter Doreen Le PA-C Work Phone: [facility] Start: 10-19-2023 End: 10-19-2023 Patient encounter procedure Lars Silva DO Work Phone: Vascular Surgery Comment on above: Venous insufficiency (Primary Dx) Start: 10-18-2023 End: 10-18-2023 Subsequent hospital visit by physician [facility] Work Phone: Radiology Comment on above: Acute systolic CHF ( congestive heart failure) ([facility]) [I50.21] Start: 10-18-2023 End: 10-18-2023 Patient encounter procedure Doreen Le PA-C Work Phone: [facility] Comment on above: SSS (sick sinus synd juliana) ([facility]) (Primary Dx); Paroxysmal atrial fibrillation ([facility]); S/P placement of cardiac pacemaker; Chronic combined systolic and diastolic CHF (congestive heart failure) ([facility]); Dilated cardiomyopathy ([facility]); Ascending aorta dilatation ([facility]); Pedro aneurysm of anterior communicating artery; History of pulmonary embolism; Presence of Watchman left atrial appendage closure device; Platelet inhibition due to Plavix; Primary hypertension; Hyperlipidemia with target LDL less than 70; Heme + stool; Epigastric pain; Blood loss anemia; Acute systolic CHF (congestive heart failure) ([facility]); Vitamin D deficiency Start: 10-15-2023 Telephone encounter Carla Burdick MD Work Phone: Cardiology Comment on above: Patient Update Start: 10-14-2023 End: 10-14-2023 Patient encounter procedure Lars Foreman Silva Work Phone: Vascular Surgery Comment on above: Venous insufficiency (Primary Dx) Start: 10-11-2023 Follow-up encounter Yin Joseph MD Work Phone: [facility] Start: 10-11-2023 Pacemaker Remote F/U Yin Joseph MD Work Phone: [facility] Start: 07-05-2023 End: 07-05-2023 Patient encounter procedure Bijan Cole MD Work Phone: [facility] Comment on above: Influenza-like illne ss (Primary Dx) Start: 06-07-2023 ambulatory Doreen de la cruz PA-C Work Phone: [facility] [place] Comment on above: Rt. Foot Bone Fractu re Start: 06-01-2023 End: 06-01-2023 Subsequent hospital visit by physician [facility] [place] Work Phone: Radiology Comment on above: Closed nondisplaced fracture of fifth metatarsal bone of right foot with routine healing, subsequent encounter [S92.354D] Start: 04-30-2023 End: 04-30-2023 Subsequent hospital visit by physician [facility] (I-Stat) Work Phone: Cat Scan Comment on above: Lung nodule, solitar y [R91.1] Start: 04-12-2023 End: 04-12-2023 Subsequent hospital visit by physician Xr [facility] [place] Work Phone: Radiology Comment on above: Pain of right middle finger [V15.794] Start: 03-23-2023 Follow-up encounter Yin Joseph MD Work Phone: [facility] Start: 03-23-2023 Pacemaker Remote F/U Yin Joseph MD Work Phone: [facility] Department Start: 03-15-2023 Refill Doreen de la cruz PA-C Work Phone: [facility] [place] Comment on above: Refill Request Start: 01-28-2023 Telephone encounter Doreen KING-Ivett Work Phone: [facility] [place] Comment on above: Appointment Start: 01-08-2023 Telephone encounter Doreen KING-Ivett Work Phone: [facility] [place] Comment on above: Orders Start: 01-07-2023 End: 01-07-2023 Patient encounter procedure Doreen Le PA-C Work Phone: [facility] [place] Comment on above: Bilateral carotid ar marcelo stenosis (Primary Dx); Atherosclerosis of [place] artery of both lower extremities with intermittent claudication ([facility]); 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[facility]); Pain in both lower legs; Iron 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; Iron malabsorption; S/P placement of cardiac pacemaker; SSS (sick sinus syndrome) ([facility]); Chronic combined systolic and diastolic CHF (congestive heart failure) ([facility]); Dilated cardiomyopathy ([facility]); Ascending aorta dilatation ([facility]); H/O rheumatic heart disease; History of prosthetic [...] Follow-up encounter Yin Joseph MD Work Phone: [facility] Start: 12-22-2022 Pacemaker Remote F/U Yin Joseph MD Work Phone: [facility] Department Start: 12-10-2022 ambulatory Doreen Biswas ty:[facility] Start: 10-06-2022 End: 10-06-2022 Patient encounter procedure Doreen Le PA-C Work Phone: [facility] Comment on above: S/P placement [...] End: 10-05-2022 Subsequent hospital visit by physician [facility] 2 Work Phone: Radiology Comment on above: 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] Start: 09-29-2022 Refill Doreen Dodge on PA-C Work Phone: Hematology/Oncology Comment [...] Follow-up encounter Yin Joseph MD Work Phone: [facility] Start: 09-21-2022 Pacemaker Remote F/U Yin Joseph MD Work Phone: [facility] Start: 08-30-2022 Refill Doreen Dodge on PA-C Work Phone: [facility] [place] Comment on above: Refill Request Start: 07-22-2022 Telephone encounter Research C oordinator Work Phone: Cardiology Comment on above: Research (IRB [id number]) Start: 07-08-2022 Telephone encounter Doreen KING-C Work Phone: [facility] [place] Comment on above: Information Start: 07-07-2022 End: 07-07-2022 Patient encounter procedure Doreen KING-C Work Phone: [facility] [place] Comment [...] Follow-up encounter Yin Joseph MD Work Phone: [facility] Start: 06-23-2022 Pacemaker Remote F/U Yin Joseph MD Work Phone: [facility] Start: 05-23-2022 Refill Sonny [...] encounter procedure Sonny Lund MD Work Phone: [facility] Start: 04-28-2022 End: 04-28-2022 [facility] Work Phone[facility] Comment on above: Iron deficiency anem ia secondary to inadequate dietary iron intake (Primary Dx); Iron malabsorption Start: 04-22-2022 Refill Carla dempsey MD Work Phone: Cardiology Comment on above: Refill Request Start: 04-22-2022 End: 04-22-2022 ambulatory Treatment [address] [facility] Work Phone: Hematology/Oncology Comment on above: Iron deficiency anem ia secondary to inadequate dietary iron intake (Primary Dx); Iron malabsorption Start: 04-20-2022 End: 04-20-2022 ambulatory Treatment Rm 9 [facility] Work Phone: Hematology/Oncology Comment on above: Iron deficiency anem ia secondary to inadequate dietary iron intake (Primary Dx); Iron malabsorption Start: 04-17-2022 End: 04-17-2022 ambulatory Treatment Rm 9 [facility] Work Phone: Hematology/Oncology Comment on above: Iron deficiency anem ia secondary to inadequate dietary iron intake (Primary Dx); Iron malabsorption Start: 04-09-2022 Telephone encounter Doreen Le PA-C Work Phone: [facility] [place] Comment on above: Orders Start: 04-09-2022 End: [...] encounter procedure Doreen Le PA-C Work Phone: [facility] [place] Comment on above: Hospital [...] Telephone encounter Doreen Le PA-C Work Phone: [facility] Comment on above: Hospital Follow [...] Follow-up encounter Yin Joseph MD Work Phone: [facility] Start: 03-24-2022 Pacemaker Remote F/U Yin Joseph MD Work Phone: [facility] Start: 03-23-2022 Telephone encounter Brianna Betancourt Cardiology Comment on above: 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) Start: 03-21-2022 Telephone encounter Juan Diego Carroll MD Work Phone: [place] [facility] Comment on above: Appointment Start: 03-20-2022 Admission to establishment Sheridan manning RN Clip Loading Machine Adjuster Management Comment on above: Transition Of Care ( Tcm readmission) Start: 03-20-2022 ambulatory Sheridan VANEGAS [email or web address] Start: 03-19-2022 End: 03-19-2022 Patient encounter procedure Doreen Le PA-C Work Phone: [facility] Comment on above: 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); Aortic prosthetic valve regurgitation, subsequent encounter; H/O rheumatic heart disease; Atrial fibrillation, unspecified type (HCC); Presence of Watchman left atrial appendage closure device; Anemia, blood loss; Primary hypertension Start: 03-05-2022 ambulatory Sheridan Cervantes RN [facility] [email or web address] Comment on above: ABDIEL -; Watchmen Start: 03-05-2022 Follow-up encounter Sheridan Cervantes RN Cl[employer] Loading Machine Adjuster Management Comment on above: Transition Of Care ( Tcm follow up) Start: 03-03-2022 Follow-up encounter Lili Fay MD Work Phone: F [facility] Start: 03-03-2022 End: 03-03-2022 Patient encounter procedure Lili Fay MD Work Phone: [facility] Comment on above: Longstanding persist ent atrial fibrillation (HCC) (Primary Dx); Presence of Watchman left atrial appendage closure device Paroxysmal atrial fi brillation (HCC); Presence of Watchman left atrial appendage closure device Start: 03-02-2022 Telephone encounter Saima England RN C ardiology Comment on above: Reminder Call (Trans esophageal Echo 03/03/22) Start: 02-25-2022 Patient Outreach Harika Tomas RN F [facility] [place] Comment on above: Transition Of Care ( [facility] D/C 02/24/2023 ) Start: 02-20-2022 End: 02-20-2022 Patient encounter procedure Doreen Le PA-C Work Phone: [facility] [place] Comment on above: Rectal bleeding (Onhemy stacie Dx); Anemia, blood loss; Diarrhea, unspecified type Start: 02-12-2022 Telephone encounter Chai Encinas MD Work Phone: General Surgery Comment on above: Procedure Follow Up (EGD completed on 01/02/2022) Start: 02-09-2022 Orders Only Candi Juarez nd UNDERWRITING SALES REPRESENTATIVE.BRANCH LEAD Work Phone: Cardiology Comment on above: Paroxysmal atrial fi brillation (HCC) (Primary Dx); Presence of Watchman left atrial appendage closure device Start: 01-21-2022 Orders Only Candi Juarez nd UNDERWRITING SALES REPRESENTATIVE.BRANCH LEAD Work Phone: Cardiology Comment on above: Paroxysmal atrial fi brillation (HCC) (Primary Dx) Patient Question (OR YUSUF FOR ABDIEL AND ECG) Start: 01-19-2022 Refill Emilia Domínguez i, MD Work Phone: Cardiology Comment on above: Refill Request Start: 01-16-2022 End: 01-16-2022 Patient encounter procedure Doreen Le PA-C Work Phone: [facility] [place] Comment on above: Atrial fibrillation, unspecified type (HCC) (Primary Dx); Presence of Watchman left atrial appendage closure device; Herpes zoster without complication Start: 01-09-2022 ambulatory Chandler villalobos MD Work Phone: Cardiology Comment on above: Patient Education (E PS-Watchman) Start: 01-09-2022 Follow-up encounter Randy Torrez MD Work Phone: [facility] Start: 01-09-2022 End: 01-09-2022 Patient encounter procedure Randy Torrez MD Work Phone: [facility] Comment on above: Atrial fibrillation, unspecified type (HCC) (Primary Dx); Gastrointestinal hemorrhage, unspecified gastrointestinal hemorrhage type; Anemia due to chronic blood loss; Other fatigue; SOB (shortness of breath) Start: 01-02-2022 End: 01-02-2022 Subsequent hospital visit by physician Chai Encinas MD Work Phone: [facility] Endoscopy Comment on above: Acute blood loss ane miguel [D62] Start: 01-01-2022 Telephone encounter Chai Encinas MD Work Phone: General Surgery Comment on above: 01-02-[address] [facility] a Start: 01-01-2022 End: 01-01-2022 Patient encounter procedure Chai Encinas MD Work Phone: General Surgery Comment on above: Anemia, blood loss ( Primary Dx); Acute blood loss anemia; Heme + stool; Sludge in gallbladder; Epigastric pain; Duodenal ulcer with hemorrhage Start: 12-30-2021 End: 12-30-2021 Patient encounter procedure [facility] Start: 12-29-2021 Telephone encounter Doreen Le PA-C Work Phone: [facility] [place] Comment on above: Orders Start: 12-27-2021 ambulatory Doreen Dodge on PA-C Work Phone: [facility] [place] Comment on above: Fatigue Start: 12-26-2021 ambulatory Doreen Dodge on PA-C Work Phone: [facility] [place] Comment on above: Anemia - hemoglobin Start: 12-25-2021 Telephone encounter Chandler ortiz MD Work Phone: Cardiology Comment on above: Patient Question (ME DICATION DECREASE) Start: 12-19-2021 Telephone encounter Doreen Le PA-C Work Phone: [facility] [place] Comment on above: Rectal Problem Start: 12-15-2021 End: 12-15-2021 Subsequent hospital visit by physician [facility] [place] Work Phone: Radiology Comment on above: Ischial bursitis of left side [M70.72] Start: 12-15-2021 End: 12-15-2021 Patient encounter procedure Doreen Le PA-C Work Phone: [facility] [place] Comment on above: Renal [...] Follow-up encounter Yin Joseph MD Work Phone: [facility] Start: 12-11-2021 Pacemaker Remote F/U Yin Joseph MD Work Phone: [facility] Start: 12-04-2021 Refill Chandler villalobos MD Work Phone: Cardiology Start: 12-03-2021 Telephone encounter Chandler otriz MD Work Phone: Cardiology Comment on above: Patient Question (ME DICATION QUESTION - XARELTO) Start: 11-27-2021 Orders Only Na Ramirez UNDERWRITING SALES REPRESENTATIVE.BRANCH LEAD Work Phone: Vascular Surgery Comment on above: PAD (peripheral jennifer ry disease) (HCC) (Primary Dx); PVD (peripheral vascular disease) (HCC) Start: 11-26-2021 End: 11-26-2021 Office outpatient visit 25 minutes Na Ramirez UNDERWRITING SALES REPRESENTATIVE.BRANCH LEAD Work Phone: Vascular Surgery Comment on above: PAD (peripheral jennifer ry disease) (HCC) (Primary Dx); Anemia due to chronic illness Start: 10-22-2021 Refill Yin Joseph MD Work Phone: Vascular Surgery Comment on above: Refill Request Start: 09-24-2021 Follow-up encounter Yin Joseph MD Work Phone: [facility] Start: 09-24-2021 Pacemaker Remote F/U Yin Joseph MD Work Phone: [facility] Start: 09-24-2021 Telephone encounter Chai Encinas MD Work Phone: General Surgery Comment on above: Appointment Cancelle d Start: 09-23-2021 Telephone encounter Chandler ortiz MD Work Phone: Cardiology Comment on above: Appointment Reschedu led (Due to change in physician's schedule) Start: 02-14-2021 End: 02-15-2021 ambulatory PROVIDER NOT IN SYSTEM [place] Start: 01-23-2019 End: 01-23-2019 Refill Lizeth Mabry [facility] Cardiology Start: 01-19-2019 End: 01-19-2019 Office outpatient visit 15 minutes Mars Chung Work Phone: [facility] Cardiology Comment on above: Persistent atrial fi brillation (Primary Dx); long-term current use of antiarrhythmic medical therapy; Moderate mitral regurgitation; Status post aortic valve replacement with tissue valve Start: 01-08-2014 End: 09-12-2021 Patient encounter status CARMELINA Le PA-C Work Phone: [facility] Procedures Date Procedure Procedure Detail Performing Clinician Start: 05-02-2025 Mean corpuscular hemoglobin concentration determination Deysi Collazo BRAND STRATEGY MANAGER-C Work Phone: Start: 05-02-2025 Neutrophil count Deysi Collazo BRAND STRATEGY MANAGER-C Work Phone: Start: 05-02-2025 Nucleated red blood cell count procedure Deysi Collazo BRAND STRATEGY MANAGER-C Work Phone: Start: 05-02-2025 Platelet mean volume determination Gilmer Collazo BRAND STRATEGY MANAGER-C Work Phone: Start: 05-02-2025 Vitamin D, 25-hydroxy measurement Gopi Collazo BRAND STRATEGY MANAGER-C Work Phone: Start: 04-24-2025 Immature reticulocyte fraction Deysi hernandez BRAND STRATEGY MANAGER-C Work Phone: Start: 04-24-2025 Mean corpuscular hemoglobin concentration determination Deysi Collazo BRAND STRATEGY MANAGER-C Work Phone: Start: 04-24-2025 Neutrophil count Deysi Collazo BRAND STRATEGY MANAGER-C Work Phone: Start: 04-24-2025 Nucleated red blood cell count procedure Deysi Collazo BRAND STRATEGY MANAGER-C Work Phone: Start: 04-24-2025 Platelet mean volume determination Gilmer Collazo BRAND STRATEGY MANAGER-C Work Phone: Start: 04-24-2025 Total iron binding capacity measurement Deysi Collazo BRAND STRATEGY MANAGER-C Work Phone: Start: 04-02-2025 Bacterial nucleic acid assay Deysi Nickerson gen BRAND STRATEGY MANAGER-C Work Phone: Start: 04-02-2025 Anaerobic microbial culture Deysi Copeag en BRAND STRATEGY MANAGER-C Work Phone: Start: 04-02-2025 Gram stain microscopy Deysi Collazo BRAND STRATEGY MANAGER-C Work Phone: Start: 04-02-2025 End: 04-02-2025 Microbial culture, routine Deysi Copeasiya n BRAND STRATEGY MANAGER-C Work Phone: Start: 03-13-2025 Blood count smear mcrscp w/mnl difrntl wbc count Deysi Collazo BRAND STRATEGY MANAGER-C Work Phone: Start: 03-13-2025 Immature reticulocyte fraction Deysi hernandez BRAND STRATEGY MANAGER-C Work Phone: Start: 03-13-2025 Mean corpuscular hemoglobin concentration determination Deysi Collazo BRAND STRATEGY MANAGER-C Work Phone: Start: 03-13-2025 Neutrophil count Deysi Collazo BRAND STRATEGY MANAGER-C Work Phone: Start: 03-13-2025 Nucleated red blood cell count procedure Deysi Collazo BRAND STRATEGY MANAGER-C Work Phone: Start: 03-13-2025 Platelet mean volume determination Gilmer Collazo BRAND STRATEGY MANAGER-C Work Phone: Start: 03-13-2025 Total iron binding capacity measurement Dyesi Collazo BRAND STRATEGY MANAGER-C Work Phone: Start: 03-09-2025 Blood count smear mcrscp w/mnl difrntl wbc count Deysi Collazo BRAND STRATEGY MANAGER-C Work Phone: Start: 03-09-2025 Mean corpuscular hemoglobin concentration determination Deysi Collazo BRAND STRATEGY MANAGER-C Work Phone: Start: 03-09-2025 Neutrophil count Deysi Collazo BRAND STRATEGY MANAGER-C Work Phone: Start: 03-09-2025 Nucleated red blood cell count procedure Deysi Collazo BRAND STRATEGY MANAGER-C Work Phone: Start: 03-09-2025 Platelet mean volume determination Gilmer Collazo BRAND STRATEGY MANAGER-C Work Phone: Start: 03-09-2025 Reactive lymphocyte count Deysi Collazo BRAND STRATEGY MANAGER-C Work Phone: Start: 02-27-2025 Urine culture Deysi Collazo BRAND STRATEGY MANAGER-C Work Phone: Start: 02-27-2025 Blood count smear mcrscp w/mnl difrntl wbc count Deysi Collazo BRAND STRATEGY MANAGER-C Work Phone: Start: 02-27-2025 Mean corpuscular hemoglobin concentration determination Deysi Collazo BRAND STRATEGY MANAGER-C Work Phone: Start: 02-27-2025 Neutrophil count Deysi Collazo BRAND STRATEGY MANAGER-C Work Phone: Start: 02-27-2025 Nucleated red blood cell count procedure Deysi Collazo BRAND STRATEGY MANAGER-C Work Phone: Start: 02-27-2025 Platelet mean volume determination Gilmer Collazo BRAND STRATEGY MANAGER-C Work Phone: Start: 02-27-2025 Urine microscopy: red cells Deysi Matthew en BRAND STRATEGY MANAGER-C Work Phone: Start: 02-27-2025 Urnls dip stick/tablet reagent auto microscopy Deysi Collazo BRAND STRATEGY MANAGER-C Work Phone: Start: 02-21-2025 Blood count smear mcrscp w/mnl difrntl wbc count Deysi Collazo BRAND STRATEGY MANAGER-C Work Phone: Start: 02-21-2025 Mean corpuscular hemoglobin concentration determination Deysi Collazo BRAND STRATEGY MANAGER-C Work Phone: Start: 02-21-2025 Neutrophil count Deysi Collazo BRAND STRATEGY MANAGER-C Work Phone: Start: 02-21-2025 Nucleated red blood cell count procedure Deysi Collazo BRAND STRATEGY MANAGER-C Work Phone: Start: 02-21-2025 Platelet mean volume determination Gilmer Collazo BRAND STRATEGY MANAGER-C Work Phone: Start: 02-16-2025 Blood count smear mcrscp w/mnl difrntl wbc count Deysi Collazo BRAND STRATEGY MANAGER-C Work Phone: Start: 02-16-2025 Estimated creatinine clearance Deysi henleysilke BRAND STRATEGY MANAGER-C Work Phone: Start: 02-16-2025 Mean corpuscular hemoglobin concentration determination Deysi Collazo BRAND STRATEGY MANAGER-C Work Phone: Start: 02-16-2025 Neutrophil count Deysi Collazo BRAND STRATEGY MANAGER-C Work Phone: Start: 02-16-2025 Nucleated red blood cell count procedure Deysi Collazo BRAND STRATEGY MANAGER-C Work Phone: Start: 02-16-2025 Platelet mean volume determination Gilmer Collazo BRAND STRATEGY MANAGER-C Work Phone: Start: 02-16-2025 X-ray of chest, PA and lateral views Deysi Collazo BRAND STRATEGY MANAGER-C Work Phone: Start: 02-13-2025 Osmolality measurement, serum Deysi ochoa BRAND STRATEGY MANAGER-C Work Phone: Start: 02-13-2025 Blood count smear mcrscp w/mnl difrntl wbc count Deysi Collazo BRAND STRATEGY MANAGER-C Work Phone: Start: 02-13-2025 Mean corpuscular hemoglobin concentration determination Deysi Collazo BRAND STRATEGY MANAGER-C Work Phone: Start: 02-13-2025 Neutrophil count Deysi Collazo BRAND STRATEGY MANAGER-C Work Phone: Start: 02-13-2025 Nucleated red blood cell count procedure Deysi Collazo BRAND STRATEGY MANAGER-C Work Phone: Start: 02-13-2025 Platelet mean volume determination Gilmer Collazo BRAND STRATEGY MANAGER-C Work Phone: Start: 02-01-2025 Blood count smear mcrscp w/mnl difrntl wbc count Deysi Collazo BRAND STRATEGY MANAGER-C Work Phone: Start: 02-01-2025 Mean corpuscular hemoglobin concentration determination Deysi Collazo BRAND STRATEGY MANAGER-C Work Phone: Start: 02-01-2025 Neutrophil count Deysi Collazo BRAND STRATEGY MANAGER-C Work Phone: Start: 02-01-2025 Nucleated red blood cell count procedure Deysi Collazo BRAND STRATEGY MANAGER-C Work Phone: Start: 02-01-2025 Platelet mean volume determination Gilmer Collazo BRAND STRATEGY MANAGER-C Work Phone: Start: 02-01-2025 Vitamin D, 25-hydroxy measurement Gopi Collazo BRAND STRATEGY MANAGER-C Work Phone: Comment on above: Vitamin D StatusDeficiency: <20 ng/mL (5 0nmol/L)Insufficiency: 20-30 ng/mL (50-75 nmol/L)Sufficiency: 30-100 ng/mL (75-250 nmol/L)Toxicity: >100 ng/mL (>250 nmol/L) Start: 01-23-2025 Blood count smear mcrscp w/mnl difrntl wbc count Deysi Collazo NP-[employer] Work Phone: Start: 01-23-2025 Hepatitis C antibody measurement Deysi Collazo NP-[employer] Work Phone: Comment on above: Reactive: Presumptive evidence of antibo dies to HCV. Follow CDC recommendations for supplemental testing.Non-Reactive: Antibodies to HCV were not detected; does not exclude the possibility of exposure to HCVReactive Results are presumptive evidence of antibodies to HCV. Follow CDC recommendations for supplemental testing.Order confirmation testing: HCV Quant by PCR testing - HCVPCR #[id number] Non Reactive: < 0.8 Equivocal: >/= 0.8 to < 1.0 Reactive: >/= 1.0The [facility] requires that a reactive/equivocal HCV antibody result be sent out for confirmation. HCV Quant by PCR testing. Start: 01-23-2025 Mean corpuscular hemoglobin concentration determination Deysi Collazo [employer] Work Phone: Start: 01-23-2025 Neutrophil count Deysi Collazo [employer] Work Phone: Start: 01-23-2025 Nucleated red blood cell count procedure Deysi Collazo [employer] Work Phone: Start: 01-23-2025 Platelet mean volume determination Gilmer Collazo [employer] Work Phone: Start: 01-23-2025 Serum inorganic phosphate measurement Deysi Collazo BRAND STRATEGY MANAGER-[employer] Work Phone: Start: 01-23-2025 Total cholesterol:HDL ratio measurement Deysi Collazo NP-[employer] Work Phone: Start: 01-23-2025 Triglycerides measurement Deysi Collazo [employer] Work Phone: Start: 01-23-2025 Vitamin D, 25-hydroxy measurement Gopi Collazo [employer] Work Phone: Comment on above: Vitamin D StatusDeficiency: <20 ng/mL (5 0nmol/L)Insufficiency: 20-30 ng/mL (50-75 nmol/L)Sufficiency: 30-100 ng/mL (75-250 nmol/L)Toxicity: >100 ng/mL (>250 nmol/L) Start: 01-11-2025 Estimated creatinine clearance Deysi H aagsilke BRAND STRATEGY MANAGER-C Work Phone: Start: 01-08-2025 Blood count smear mcrscp w/mnl difrntl wbc count Deysi Collazo BRAND STRATEGY MANAGER-C Work Phone: Start: 01-08-2025 Mean corpuscular hemoglobin concentration determination Deysi Collazo BRAND STRATEGY MANAGER-C Work Phone: Start: 01-08-2025 Neutrophil count Deysi Collazo BRAND STRATEGY MANAGER-C Work Phone: Start: 01-08-2025 Nucleated red blood cell count procedure Deysi Collazo BRAND STRATEGY MANAGER-C Work Phone: Start: 01-08-2025 Platelet mean volume determination Gilmer Collazo BRAND STRATEGY MANAGER-C Work Phone: Start: 01-08-2025 Total cholesterol:HDL ratio measurement Deysi Collazo BRAND STRATEGY MANAGER-C Work Phone: Start: 01-08-2025 Triglycerides measurement Deysi Collazo BRAND STRATEGY MANAGER-C Work Phone: Start: 01-07-2025 CT angiography of head and neck Deysi Hadon BRAND STRATEGY MANAGER-C Work Phone: Start: 01-07-2025 CT of head without contrast Deysi Vipullauren edouard BRAND STRATEGY MANAGER-C Work Phone: Start: 01-07-2025 X-ray of chest, PA and lateral views Deysi Copedon BRAND STRATEGY MANAGER-C Work Phone: Start: 01-07-2025 Estimated creatinine clearance Deysi H aagsilke BRAND STRATEGY MANAGER-C Work Phone: Start: 11-08-2023 Ecg routine ecg w/least 12 lds i&r only [facility] Provider Start: 10-18-2023 Radiologic exam chest 2 views M Claudia Le PA-C Work Phone: Start: 10-18-2023 Ecg routine ecg w/least 12 lds i&r only [facility] Provider Start: 10-11-2023 PACEMAKER REMOTE CHECK Yin Joseph MD Work Phone: Start: 07-05-2023 INFLUENZA A&B MOLECULAR (POC) Bijan Wei MD Work Phone: Start: 06-01-2023 Radex foot complete minimum 3 views Doreen Taylor Le PA-[employer] Work Phone: Start: 04-30-2023 Ct thorax w/o contrast material M Haider graham Le PA-C Work Phone: Start: 04-12-2023 Radex fingr minimum 2 views Doreen Taylor Ba [employer] Work Phone: Start: 03-23-2023 PACEMAKER REMOTE CHECK [...] 2d w/wo m-mode rec f-up/lmtd Candi Beauchamp UNDERWRITING SALES REPRESENTATIVE.BRANCH LEAD Work Phone: Start: 01-09-2022 PACEMAKER CLINIC CHECK Randy Glenna Formean Work Phone: Start: 01-09-2022 Antibody screen rbc [...] DTaP,Tdap,Td Vaccine (3 - Td or Tdap) [facility] Start: 12-12-2025 Complete blood count Hemoglobin/Hematocrit [facility] Start: 12-12-2025 Creatinine measurement Serum Creatinine [facility] Start: 12-11-2025 Complete blood count Hemoglobin/Hematocrit [facility] Start: 12-11-2025 Creatinine measurement Serum Creatinine [facility] Start: 12-11-2025 Hepatitis B screening Urine Albumin:Creatinine Ratio [facility] Start: 11-20-2025 Creatinine measurement Serum Creatinine [facility] Start: 11-13-2025 Creatinine measurement Serum Creatinine [facility] Start: 11-03-2025 BP Controlled (<130/80) BP Controlled (<130/80) [facility] Start: 11-03-2025 Creatinine measurement Serum Creatinine [facility] Start: 10-31-2025 Annual PCP Team Chronic Disease Visit Annual PCP Team Chronic Disease Visit [facility] Start: 10-31-2025 Complete blood count Hemoglobin/Hematocrit [facility] Start: 10-31-2025 Creatinine measurement Serum Creatinine [facility] Start: 10-10-2025 Complete blood count Hemoglobin/Hematocrit [facility] Start: 10-03-2025 Hepatitis B screening Urine Albumin:Creatinine Ratio [facility] Start: 10-02-2025 Hepatitis B surface antibody level LDL Cholesterol [facility] Start: 07-23-2025 Reticulocyte count [facility] Start: 07-07-2025 Annual PCP Team Chronic Disease Visit Annual PCP Team Chronic Disease Visit [facility] Start: 07-07-2025 Anxiety Screening Anxiety Screening [facility] Comment on above: Postponed from 1963 (Declined at t his time) Start: 07-07-2025 Covid-19 Vaccine () Covid-19 Vaccine () [facility] Comment on above: Postponed from 03/05/2024 (Declined at t his time) Start: 07-07-2025 Creatinine measurement Serum Creatinine [facility] Start: 07-07-2025 Hepatitis B screening Urine Albumin:Creatinine Ratio [facility] Start: 05-10-2025 -[facility] Work Phone: Start: 05-07-2025 End: 05-07-2025 -[facility] Work Phone: Start: 05-03-2025 -[facility] Work Phone: Start: 05-03-2025 End: 05-04-2025 -[facility] Work Phone: Start: 05-02-2025 End: 05-02-2025 -Laboratory Phy Office 3rd Flr Start: 04-26-2025 Glaucoma screening Dilated Retinal Exam [facility] Start: 04-22-2025 Hemoglobin A1c measurement HbA1C [facility] Start: 04-03-2025 Hemoglobin A1c measurement HbA1C [facility] Start: 04-02-2025 Source specific culture [facility] Start: 04-02-2025 Anaerobic microbial culture [facility] Start: 04-02-2025 Gram stain microscopy [facility] Start: 04-02-2025 Microbial culture, routine [facility] Start: 04-02-2025 -Laboratory Phy Office 3rd Flr Start: 03-29-2025 -[facility] Work Phone: Start: 03-27-2025 -[facility] Start: 03-26-2025 End: 03-26-2025 Patient encounter procedure 03/26/2025 10:00 AM EDT Office Visit Cardiology [address] [place] [address] Carla Burdick MD [address] [place] [address] 4 month follow up - ECHO prior Cardiology Comment on above: 4 month follow up - ECHO prior Start: 03-22-2025 [facility] Start: 03-19-2025 End: 03-19-2025 Patient encounter procedure 03/19/2025 1:50 PM EDT Office Visit Cardiology [address] [place] [address] ECHO Cardiology Comment on above: ECHO Start: 03-13-2025 CBC W Auto Differential panel - Blood [facility] Start: 03-13-2025 Comprehensive metabolic 2000 panel - Serum or Plasma [facility] Start: 03-13-2025 Erythropoietin (EPO) [Units/volume] in Serum or Plasma [facility] Start: 03-13-2025 Ferritin [Mass/volume] in Serum or Plasma [facility] Start: 03-13-2025 Iron and Iron binding capacity panel - Serum or Plasma [facility] Start: 03-13-2025 Reticulocyte count [facility] Start: 03-13-2025 Vitamin B12 measurement [facility] Start: 03-13-2025 [facility] Start: 03-05-2025 Influenza vaccination Influenza Vaccine (#1) [facility] Start: 02-27-2025 Urine culture [facility] Start: 02-27-2025 [facility] Start: 02-26-2025 End: 02-26-2025 Patient encounter procedure 02/26/2025 2:20 PM EDT Office Visit Cardiology [address] [place] [address] Carla Burdick MD [address] [address] f/u Cardiology Comment on above: f/u Start: 02-16-2025 End: 02-16-2025 [facility] Start: 02-16-2025 [facility] Start: 02-13-2025 Measurement of C-reactive protein using high sensitivity technique [facility] Start: 02-05-2025 End: 02-05-2025 Evaluation of diagnostic study results [facility] Start: 02-02-2025 Creatinine measurement Serum Creatinine [facility] Start: 02-02-2025 Hepatitis B surface antibody level LDL Cholesterol [facility] Start: 01-23-2025 End: 01-23-2025 Patient encounter procedure 01/23/2025 10:00 AM EDT Office Visit Cardiology [address] [place] [address] Albin Gu APRN.BRANCH LEAD [address] [place] [address] CHF FOLLOW UP Cardiology Comment on above: CHF FOLLOW UP Start: 01-11-2025 Patient discharge [facility] Start: 01-10-2025 End: 01-10-2025 Patient encounter procedure [facility] [place] Comment on above: 6 month follow up (SHABBIR from [place]) 6 month follow up Start: 01-08-2025 Referral to patient intake coordinator [facility] Start: 01-08-2025 End: 01-08-2025 [facility] Start: 01-08-2025 Thyroid stimulating hormone measurement [facility] Start: 01-08-2025 Vital signs measurements [facility] Start: 01-08-2025 Cardiac monitoring [facility] Start: 01-08-2025 Catheterization of vein [facility] Start: 01-08-2025 Consultation [facility] Start: 01-08-2025 Elevation of head of bed [facility] Start: 01-08-2025 Exercises [facility] Start: 01-08-2025 Notification of physician [facility] Start: 01-08-2025 Patient referral to dietitian [facility] Start: 01-08-2025 Referral for physical therapy [facility] Start: 01-08-2025 Referral to occupational therapist [facility] Start: 01-08-2025 Referral to service [facility] Start: 01-08-2025 Speech therapy assessment [facility] Start: 01-08-2025 Tobacco use cessation education [facility] Start: 01-07-2025 Following clinical pathway protocol [facility] Start: 01-07-2025 Assessment of risk of venous thromboembolism [facility] Start: 01-07-2025 Care regimes management [facility] Start: 01-07-2025 Elevation of affected extremity [facility] Start: 01-07-2025 Inhalation therapy procedure [facility] Start: 01-07-2025 Insertion of catheter into peripheral vein [facility] Start: 01-07-2025 Measuring intake and output [facility] Start: 01-07-2025 Notification of physician [facility] Start: 01-07-2025 Patient education [facility] Start: 01-07-2025 Providing care according to standard [facility] Start: 01-07-2025 Provision of activity privileges [facility] Start: 01-07-2025 End: 01-07-2025 [facility] Start: 01-07-2025 Verification routine [facility] Start: 01-07-2025 Admission procedure [facility] Start: 01-07-2025 End: 01-07-2025 [facility] Start: 01-04-2025 Hemoglobin A1c measurement HbA1C [facility] Start: 01-01-2025 End: 04-02-2025 Basic metabolic 2000 panel - Serum or Plasma BASIC METABOLIC PANEL Lab Routine Chronic diastolic (congestive) heart failure (HCC) Expected: 01/01/2025, Expires: 04/02/2025 [facility] Comment on above: Expected: 01/01/2025, Expires: Start: 01-01-2025 End: 04-02-2025 Natriuretic peptide.B prohormone N-Terminal [Mass/volume] in Serum or Plasma NT PRO BNP Lab Routine Chronic diastolic (congestive) heart failure (HCC) Expected: 01/01/2025, Expires: 04/02/2025 [facility] Comment on above: Expected: 01/01/2025, Expires: Start: 01-01-2025 End: 01-01-2025 Patient encounter procedure 01/01/2025 11:00 AM EDT Office Visit Cardiology [address] [place] [address] Carla Burdick MD [address] [place] [address] 1 month follow up Cardiology Comment on above: 1 month follow up Start: 12-21-2024 End: 12-21-2024 Patient encounter procedure 12/21/2024 9:00 AM EDT Office Visit Cardiology [address] [place] [address] Albin Gu APRN.BRANCH LEAD [address] [place], [place] [id number] CHF Cardiology Comment on above: CHF Start: 12-20-2024 End: 12-20-2024 Patient encounter procedure Vascular Surgery Comment on above: MESENTERIC AND HOSPITAL FOLLOW UP Start: 12-19-2024 End: 03-20-2025 Basic metabolic 2000 panel - Serum or Plasma BASIC METABOLIC PANEL Lab Routine Chronic diastolic congestive heart failure (HCC) Expected: 12/19/2024, Expires: 03/20/2025 [facility] Work Phone: Comment on above: Expected: 12/19/2024, Expires: Start: 12-18-2024 End: 12-18-2024 Patient encounter procedure 12/18/2024 11:00 AM EDT Office Visit Cardiology [address] [place] [address] Albin Gu APRN.BRANCH LEAD [address] [place], [place] [id number] CHF Cardiology Comment on above: CHF Start: 12-11-2024 End: 12-11-2024 Patient encounter procedure 12/11/2024 2:30 PM EDT Office Visit Cardiology [address] [place] [address] Allison Toledo APRN.BRANCH LEAD [address] [facility] [place] [address] follow u Cardiology Comment on above: follow u Start: 12-06-2024 Annual PCP Team Chronic Disease Visit Annual PCP Team Chronic Disease Visit [facility] Start: 12-06-2024 BP Controlled (<130/80) BP Controlled (<130/80) [facility] Start: 12-04-2024 End: 12-04-2024 Patient encounter procedure 12/04/2024 2:00 PM EDT Office Visit Cardiology [address] [place], [place] [id number] Carla Burdick MD [address] [place] [address] [phone] (Fax) 1 month follow up Cardiology Comment on above: 1 month follow up Start: 12-01-2024 Creatinine measurement Serum Creatinine [facility] Start: 11-21-2024 Annual PCP Team Chronic Disease Visit Annual PCP Team Chronic Disease Visit [facility] Start: 11-21-2024 BP Controlled (<130/80) BP Controlled (<130/80) [facility] Start: 11-21-2024 End: 11-21-2024 Patient encounter procedure 11/21/2024 10:00 AM EDT Office Visit Cardiology [address] [place] [address] Albin Gu, UNDERWRITING SALES REPRESENTATIVE.BRANCH LEAD [address] [place] [address] CHF Cardiology Comment on above: CHF Start: 11-20-2024 End: 11-20-2024 Patient encounter procedure 11/20/2024 8:00 AM EDT Office Visit Cardiology [address] [place], [place] [id number] Carla Burdick MD [address] [place] [address] [phone] (Fax) follow up with labs per Dr Burdick's phone note Cardiology Comment on above: follow up with labs per Dr Burdick's da ne note Start: 11-18-2024 Complete blood count Hemoglobin/Hematocrit [facility] Start: 11-18-2024 Creatinine measurement Serum Creatinine [facility] Start: 11-15-2024 End: 02-14-2025 Basic metabolic 2000 panel - Serum or Plasma BASIC METABOLIC PANEL Lab Routine Dyspnea on exertion Chronic diastolic congestive heart failure (HCC) Expected: 11/15/2024, Expires: 02/14/2025 [facility] Work Phone: Comment on above: Expected: 11/15/2024, Expires: Start: 11-15-2024 End: 02-14-2025 Natriuretic peptide.B prohormone N-Terminal [Mass/volume] in Serum or Plasma NT PRO BNP Lab Routine Dyspnea on exertion Chronic diastolic congestive heart failure (HCC) Expected: 11/15/2024, Expires: 02/14/2025 [facility] Comment on above: Expected: 11/15/2024, Expires: Start: 11-15-2024 End: 11-15-2024 ambulatory 11/15/2024 9:00 AM EDT OT/PT/Speech Visit [facility] Physical Therapy [address] [place], [place] [id number] Frank Null, PT [address] [place], [place] [id number] Physical deconditioning [R53.81] [facility] Comment on above: Physical deconditioning [R53.81] Start: 11-11-2024 Complete blood count Hemoglobin/Hematocrit [facility] Start: 11-11-2024 Creatinine measurement Serum Creatinine [facility] Start: 11-09-2024 Complete blood count Hemoglobin/Hematocrit [facility] Start: 11-09-2024 Creatinine measurement Serum Creatinine [facility] Start: 11-07-2024 End: 11-07-2024 ambulatory 11/07/2024 10:45 AM EDT OT/PT/Speech Visit [facility] [address] [place], [place] [phone] Adriana Wilson, OTR/L [address] [place] [place], [place] [phone] Physical deconditioning [R53.81] [facility] Comment on above: Physical deconditioning [R53.81] Start: 11-06-2024 End: 11-06-2024 Patient encounter procedure 11/06/2024 2:40 PM EDT Office Visit Cardiology [address] [place] [address] Carla Burdick MD [address] [place] [address] hospital f/u - acute on chronic CHF Cardiology Comment on above: hospital f/u - acute on chronic CHF Start: 11-06-2024 End: 02-05-2025 Basic metabolic 2000 panel - Serum or Plasma BASIC METABOLIC PANEL Lab Routine Chronic diastolic (congestive) heart failure (HCC) Expected: 11/06/2024, Expires: 02/05/2025 [facility] Work Phone: Comment on above: Expected: 11/06/2024, Expires: Start: 11-06-2024 End: 02-05-2025 Natriuretic peptide.B prohormone N-Terminal [Mass/volume] in Serum or Plasma NT PRO BNP Lab Routine Chronic diastolic (congestive) heart failure (HCC) Expected: 11/06/2024, Expires: 02/05/2025 [facility] Comment on above: Expected: 11/06/2024, Expires: Start: 11-03-2024 Annual PCP Team Chronic Disease Visit Annual PCP Team Chronic Disease Visit [facility] Start: 11-03-2024 End: 02-02-2025 Basic metabolic 2000 panel - Serum or Plasma BASIC METABOLIC PANEL Lab Routine Chronic diastolic congestive heart failure (HCC) Expected: 11/03/2024, Expires: 02/02/2025 [facility] Work Phone: Comment on above: Expected: 11/03/2024, Expires: Start: 10-31-2024 Complete blood count Hemoglobin/Hematocrit [facility] Start: 10-31-2024 Creatinine measurement Serum Creatinine [facility] Start: 10-26-2024 End: 10-26-2024 Patient encounter procedure 10/26/2024 9:00 AM EDT Office Visit Cardiology [address] [place] [address] Albin Gu APRN.BRANCH LEAD [address] [place] [address] I50.32 I10 I49.5 I48.11 Cardiology Comment on above: I50.32 I10 I49.5 I48.11 Start: 10-25-2024 End: 10-25-2024 Patient encounter procedure 10/25/2024 1:30 PM EDT Office Visit Vasculary Surgery [address] [place], [place] [id number] Bilateral carotid artery stenosis [I65.23] [facility] Comment on above: Bilateral carotid artery stenosis [I65.2 3] Start: 10-24-2024 End: 10-24-2024 Patient encounter procedure 10/24/2024 11:00 AM EDT Office Visit Cardiology [address] [place] [address] Albin Gu APRN.BRANCH LEAD [address] [place] [address] CHF Cardiology Comment on above: CHF Start: 10-23-2024 End: 10-23-2024 Patient encounter procedure 10/23/2024 2:00 PM EDT Office Visit [facility] [address] [place], [place] [phone] Deysi Collazo APRN.BRANCH LEAD [address] [place] [address] Post hospital visit [facility] Comment on above: Post hospital visit Start: 10-17-2024 Annual PCP Team Chronic Disease Visit Annual PCP Team Chronic Disease Visit [facility] Start: 10-17-2024 End: 10-17-2024 Patient encounter procedure Cardiology Comment on above: medtronic ep eval medtronic Start: 10-15-2024 Creatinine measurement Serum Creatinine [facility] Start: 07-05-2024 Advance Directive Discussion Advance Directive Discussion [facility] Start: 07-05-2024 Medicare Advantage Annual Wellness Visit Medicare Advantage Annual Wellness Visit [facility] Start: 06-01-2024 Annual PCP Team Chronic Disease Visit Annual PCP Team Chronic Disease Visit [facility] Start: 06-01-2024 BP Controlled (<130/80) BP Controlled (<130/80) [facility] in Start: 04-16-2024 Glaucoma screening Dilated Retinal Exam [facility] Start: 04-16-2024 Hepatitis C antibody, confirmatory test Dilated Retinal Exam [facility] Start: 04-12-2024 Annual PCP Team Chronic Disease Visit Annual PCP Team Chronic Disease Visit [facility] Start: 04-12-2024 Covid-19 Vaccine () Covid-19 Vaccine () [facility] Comment on above: Postponed from 03/05/2023 (Declined at t his time) Start: 04-12-2024 Shingrix Vaccine (2 of 2) Shingrix Vaccine (2 of 2) [facility] Comment on above: Postponed from 01/03/2019 (Insurance Cov erage) Start: 04-07-2024 Complete blood count Hemoglobin/Hematocrit [facility] Start: 04-07-2024 Creatinine measurement Serum Creatinine [facility] Start: 04-07-2024 Hemoglobin/Hematocrit Hemoglobin/Hematocrit [facility] Start: 04-07-2024 Hepatitis B screening Urine Albumin:Creatinine Ratio [facility] Start: 04-07-2024 Hepatitis B surface antibody level LDL Cholesterol [facility] Start: 04-07-2024 Serum Creatinine Serum Creatinine [facility] Start: 04-07-2024 End: 04-07-2024 Patient encounter procedure 04/07/2024 9:00 AM EDT Office Visit Cardiology [address] [place] [address] Albin Gu APRN.BRANCH LEAD [address] [place] [address] I50.32 I10 I49.5 I48.11 I50.21 Cardiology Comment on above: I50.32 I10 I49.5 I48.11 I50.21 Start: 04-06-2024 End: 04-06-2024 Patient encounter procedure 04/06/2024 9:00 AM EDT Office Visit Cardiology [address] [place] [address] Albin Gu APRN.BRANCH LEAD [address] [place] [address] I50.32 I10 I49.5 I48.11 I50.21 Cardiology Comment on above: I50.32 I10 I49.5 I48.11 I50.21 Start: 03-05-2024 Covid-19 Vaccine ( season) Covid-19 Vaccine () [facility] Start: 03-05-2024 Covid-19 Vaccine () Covid-19 Vaccine () [facility] Start: 03-05-2024 Influenza vaccination Influenza Vaccine (#1) [place] Start: 02-07-2024 End: 05-08-2024 Basic metabolic 2000 panel - Serum or Plasma BASIC METABOLIC PANEL Lab Routine Chronic kidney disease, unspecified CKD stage Expected: 02/07/2024, Expires: 05/08/2024 [facility] Work Phone: Comment on above: Expected: 02/07/2024, Expires: Start: 02-07-2024 End: 05-08-2024 Natriuretic peptide.B prohormone N-Terminal [Mass/volume] in Serum or Plasma NT PRO BNP Lab Routine Chronic diastolic congestive heart failure (HCC) Expected: 02/07/2024, Expires: 05/08/2024 [facility] Work Phone: Comment on above: Expected: 02/07/2024, Expires: 4 Start: 02-07-2024 End: 02-07-2024 Patient encounter procedure 02/07/2024 8:00 AM EDT Office Visit [facility] [address] [place] [address] Doreen Le PA-C [address] [place] [address] 3 month follow up [facility] [place] Comment on above: 3 month follow up Start: 01-17-2024 End: 04-17-2024 Comprehensive metabolic 2000 panel - Serum or Plasma COMPREHENSIVE METABOLIC PANEL Lab Routine Chronic diastolic (congestive) heart failure (HCC) Expected: 01/17/2024, Expires: 04/17/2024 [facility] Comment on above: Expected: 01/17/2024, Expires: Start: 01-17-2024 End: 04-17-2024 Lipid 1996 panel - Serum or Plasma LIPID PANEL BASIC Lab Routine Hyperlipidemia with target LDL less than 70 Expected: 01/17/2024, Expires: 04/17/2024 [facility] Work Phone: Comment on above: Expected: 01/17/2024, Expires: Start: 01-17-2024 End: 04-17-2024 Natriuretic peptide.B prohormone N-Terminal [Mass/volume] in Serum or Plasma NT PRO BNP Lab Routine Chronic diastolic (congestive) heart failure (HCC) Expected: 01/17/2024, Expires: 04/17/2024 [facility] Comment on above: Expected: 01/17/2024, Expires: Start: 01-17-2024 End: 01-17-2024 Patient encounter procedure 01/17/2024 9:20 AM EDT Office Visit Cardiology [address] [place] [address] Carla Burdick MD [address] [phone] 6 month follow up Cardiology Comment on above: 6 month follow up Start: 01-09-2024 Urine microalbumin profile [facility] Start: 01-08-2024 ANNUAL PCP TEAM CHRONIC DISEASE VISIT ANNUAL PCP TEAM CHRONIC DISEASE VISIT [facility] Start: 12-02-2023 End: 03-02-2024 CBC W Auto Differential panel - Blood COMPLETE BLOOD COUNT AND DIFFERENTIAL Lab Routine Borderline anemia Acute systolic congestive heart failure (HCC) Expected: 12/02/2023, Expires: 03/02/2024 [facility] Work Phone: Comment on above: Expected: 12/02/2023, Expires: Start: 12-02-2023 End: 03-02-2024 Iron and Iron binding capacity panel - Serum or Plasma IRON AND TIBC Lab Routine Borderline anemia Expected: 12/02/2023, Expires: 03/02/2024 [facility] Comment on above: Expected: 12/02/2023, Expires: Start: 11-30-2023 End: 11-30-2023 Patient encounter procedure 11/30/2023 11:00 AM EDT Office Visit Cardiology [address], [place] [phone] Albin Gu APRN.BRANCH LEAD [address] [place], [place] [phone] NEW CHF/post hospitalization Cardiology Comment on above: NEW CHF/post hospitalization Start: 11-25-2023 End: 02-24-2024 Basic metabolic 2000 panel - Serum or Plasma BASIC METABOLIC PANEL Lab Routine Chronic diastolic congestive heart failure (HCC) Expected: 11/25/2023, Expires: 02/24/2024 [facility] Work Phone: Comment on above: Expected: 11/25/2023, Expires: Start: 11-25-2023 End: 11-25-2023 Patient encounter procedure 11/25/2023 10:00 AM EDT Office Visit Cardiology [address] [place], [place] [phone] Albin Gu APRN.BRANCH LEAD [address] [place], [place] [phone] NEW CHF/post hospitalization Cardiology Comment on above: NEW CHF/post hospitalization Start: 11-24-2023 End: 11-24-2023 ambulatory 11/24/2023 11:00 AM EDT Visit (SP) Office Hematology/Oncology [address] [place] [address] [place] [address] [place] [address] 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] Hematology/Oncology Comment on above: Iron deficiency anemia secondary to inad equate dietary iron intake [D50.8] Start: 11-22-2023 End: 02-21-2024 Renal function 2000 panel - Serum or Plasma RENAL FUNCTION PANEL Lab Routine Hyponatremia Hypokalemia Expected: 11/22/2023, Expires: 02/21/2024 [facility] Work Phone: Comment on above: Expected: 11/22/2023, Expires: Start: 11-22-2023 End: 11-22-2023 Patient encounter procedure 11/22/2023 9:00 AM EDT Office Visit [facility] [address], [place] [id number] Deysi Collazo, UNDERWRITING SALES REPRESENTATIVE.[employer] [address], [place] [id number] [facility] Follow up [facility] Comment on above: [facility] Follow up Start: 11-12-2023 End: 02-11-2024 Basic metabolic 2000 panel - Serum or Plasma BASIC METABOLIC PANEL Lab Routine Stage 3 chronic kidney disease, unspecified whether stage 3a or 3b CKD (HCC) Expected: 11/12/2023, Expires: 02/11/2024 [facility] Work Phone: Comment on above: Expected: 11/12/2023, Expires: Start: 11-09-2023 End: 11-09-2023 Patient encounter procedure Vasculary Surgery Comment on above: Carotid artery stenosis, asymptomatic, b ilateral [I65.23] PVD (peripheral vasc ular disease) with claudication (HCC) [I73.9] follow up after test ing Start: 11-08-2023 End: 11-08-2023 Patient encounter procedure 11/08/2023 4:30 PM EDT Office Visit Cardiology [id number] [place] [address] Bere Boykin, UNDERWRITING SALES REPRESENTATIVE.[employer] LEAD [address] [place] [address] Follow up Cardiology Comment on above: Follow up Start: 11-04-2023 End: 11-04-2023 Patient encounter procedure 11/04/2023 8:00 AM EDT Office Visit [facility] [address] [place] [id number] Doreen Le PA-C [address] [place] [id number] 6 mo follow up [facility] Comment on above: 6 mo follow up Start: 11-02-2023 End: 02-01-2024 Basic metabolic 2000 panel - Serum or Plasma BASIC METABOLIC PANEL Lab Routine Acute systolic congestive heart failure (HCC) Expected: 11/02/2023, Expires: 02/01/2024 [facility] Comment on above: Expected: 11/02/2023, Expires: Start: 10-18-2023 End: 01-17-2024 25-hydroxyvitamin D3 [Mass/volume] in Serum or Plasma VITAMIN D 25 HYDROXY Lab Routine Vitamin D deficiency Expected: 10/18/2023, Expires: 01/17/2024 [facility] Work Phone: Comment on above: Expected: 10/18/2023, Expires: 4 Start: 10-18-2023 End: 01-17-2024 Basic metabolic 2000 panel - Serum or Plasma BASIC METABOLIC PANEL Lab Routine Acute systolic CHF (congestive heart failure) (HCC) Expected: 10/18/2023, Expires: 01/17/2024 [facility] Work Phone: Comment on above: Expected: 10/18/2023, Expires: Start: 10-18-2023 End: 01-17-2024 CBC panel - Blood by Automated count COMPLETE BLOOD COUNT Lab Routine Acute systolic CHF (congestive heart failure) (HCC) Expected: 10/18/2023, Expires: 01/17/2024 [facility] Work Phone: Comment on above: Expected: 10/18/2023, Expires: 4 Start: 10-18-2023 End: 01-17-2024 Natriuretic peptide.B prohormone N-Terminal [Mass/volume] in Serum or Plasma NT PRO BNP Lab Routine Acute systolic CHF (congestive heart failure) (HCC) Expected: 10/18/2023, Expires: 01/17/2024 [facility] Work Phone: Comment on above: Expected: 10/18/2023, Expires: 4 Start: 10-15-2023 End: 01-14-2024 Basic metabolic 2000 panel - Serum or Plasma BASIC METABOLIC PANEL Lab Routine 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) Dilated cardiomyopathy (HCC) Expected: 10/15/2023, Expires: 01/14/2024 [facility] Work Phone: Comment on above: Expected: 10/15/2023, Expires: Start: 10-15-2023 End: 01-14-2024 Natriuretic peptide.B prohormone N-Terminal [Mass/volume] in Serum or Plasma NT PRO BNP Lab Routine 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) Dilated cardiomyopathy (HCC) Expected: 10/15/2023, Expires: 01/14/2024 [facility] Work Phone: Comment on above: Expected: 10/15/2023, Expires: 4 Start: 10-07-2023 ANNUAL PCP TEAM CHRONIC DISEASE VISIT ANNUAL PCP TEAM CHRONIC DISEASE VISIT [facility] Start: 10-07-2023 Hemoglobin A1c measurement HbA1C [facility] Start: 10-07-2023 Hemoglobin A1c/Hemoglobin.total in Blood HbA1C [facility] Start: 10-06-2023 HEMOGLOBIN/HEMATOCRIT HEMOGLOBIN/HEMATOCRIT [facility] Start: 10-06-2023 Hepatitis B surface antibody level LDL CHOLESTEROL [facility] Start: 10-06-2023 SERUM CREATININE SERUM CREATININE [facility] Start: 09-29-2023 BP CONTROLLED (<130/80) BP CONTROLLED (<130/80) [facility] Start: 07-07-2023 ANNUAL PCP TEAM CHRONIC DISEASE VISIT ANNUAL PCP TEAM CHRONIC DISEASE VISIT [facility] Start: 07-05-2023 Advance Directive Discussion Advance Directive Discussion [facility] Start: 07-05-2023 Behavioral Health Screening Behavioral Health Screening [facility] Start: 07-05-2023 Depression Assessment Depression Assessment [facility] Start: 07-03-2023 Hemoglobin A1c/Hemoglobin.total in Blood HBA1C [facility] Start: 05-14-2023 HEMOGLOBIN/HEMATOCRIT HEMOGLOBIN/HEMATOCRIT [facility] Start: 05-14-2023 SERUM CREATININE SERUM CREATININE [facility] Start: 04-15-2023 HEMOGLOBIN/HEMATOCRIT HEMOGLOBIN/HEMATOCRIT [facility] Start: 04-14-2023 Hepatitis C antibody, confirmatory test DILATED RETINAL EXAM [facility] Start: 04-07-2023 End: 06-07-2023 ALBUMIN/CREAT RATIO RND UR ALBUMIN/CREAT RATIO RND UR Lab Routine Type 2 diabetes mellitus with diabetic peripheral angiopathy without gangrene, without long-term current use of insulin (HCC) Expected: 04/07/2023, Expires: 06/07/2023 [facility] Work Phone: Comment on above: Expected: 04/07/2023, Expires: 3 Start: 04-07-2023 End: 06-07-2023 CBC W Auto Differential panel - Blood CBC + DIFF Lab Routine Primary hypertension Gastroesophageal reflux disease without esophagitis Chronic renal failure, stage 3b (HCC) Expected: 04/07/2023, Expires: 06/07/2023 [facility] Work Phone: Comment on above: [...] of insulin (HCC) Expected: 04/07/2023, Expires: 06/07/2023 [facility] Work Phone: Comment on above: Expected: 04/07/2023, Expires: 3 Start: 04-07-2023 End: 06-07-2023 Ferritin [Mass/volume] in Serum or Plasma FERRITIN BLD Lab Routine Iron 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 Expected: 04/07/2023, Expires: 06/07/2023 [facility] Work Phone: Comment on above: Expected: 04/07/2023, Expires: 3 Start: 04-07-2023 End: 06-07-2023 Hemoglobin A1c in Blood HGB A1C Lab Routine Type 2 diabetes mellitus with diabetic peripheral angiopathy without gangrene, without long-term current use of insulin (HCC) Expected: 04/07/2023, Expires: 06/07/2023 [facility] Work Phone: Comment on above: Expected: 04/07/2023, Expires: 3 Start: 04-07-2023 End: 06-07-2023 Iron and Iron binding capacity panel - Serum or Plasma IRON + TIBC Lab Routine 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 Expected: 04/07/2023, Expires: 06/07/2023 [facility] Work Phone: Comment on above: Expected: 04/07/2023, Expires: 3 Start: 04-07-2023 End: 06-07-2023 Lipid 1996 panel - Serum or Plasma LIPID PANEL BASIC Lab Routine Hyperlipidemia with target LDL less than 70 Expected: 04/07/2023, Expires: 06/07/2023 [facility] Work Phone: Comment on above: Expected: 04/07/2023, Expires: 3 Start: 04-06-2023 3 comp foot exam completed DIABETIC FOOT EXAM [facility] Start: 04-06-2023 ANNUAL PCP TEAM CHRONIC DISEASE VISIT ANNUAL PCP TEAM CHRONIC DISEASE VISIT [facility] Start: 04-06-2023 Diabetic foot examination Diabetic Foot Exam [facility] Start: 04-06-2023 HEMOGLOBIN/HEMATOCRIT HEMOGLOBIN/HEMATOCRIT [facility] Start: 04-06-2023 SERUM CREATININE SERUM CREATININE [facility] Start: 03-22-2023 HEMOGLOBIN/HEMATOCRIT HEMOGLOBIN/HEMATOCRIT [facility] Start: 03-22-2023 SERUM CREATININE SERUM CREATININE [facility] Start: 03-21-2023 HEMOGLOBIN/HEMATOCRIT HEMOGLOBIN/HEMATOCRIT [facility] Start: 03-21-2023 SERUM CREATININE SERUM CREATININE [facility] Start: 03-20-2023 HEMOGLOBIN/HEMATOCRIT HEMOGLOBIN/HEMATOCRIT [facility] Start: 03-20-2023 SERUM CREATININE SERUM CREATININE [facility] Start: 03-19-2023 ANNUAL PCP TEAM CHRONIC DISEASE VISIT ANNUAL PCP TEAM CHRONIC DISEASE VISIT [facility] Start: 03-19-2023 HEMOGLOBIN/HEMATOCRIT HEMOGLOBIN/HEMATOCRIT [facility] Start: 03-19-2023 SERUM CREATININE SERUM CREATININE [facility] Start: 03-05-2023 End: 09-29-2023 Echocardiography ECHO Cardiology Routine History of prosthetic aortic valve replacement H/O rheumatic heart disease Expected: 03/05/2023, Expires: 09/29/2023 [facility] Work Phone: Comment on above: Expected: 03/05/2023, Expires: Start: 03-05-2023 Influenza vaccination [facility] Start: 02-27-2023 HEMOGLOBIN/HEMATOCRIT HEMOGLOBIN/HEMATOCRIT [facility] Start: 02-27-2023 SERUM CREATININE SERUM CREATININE [facility] Start: 02-24-2023 HEMOGLOBIN/HEMATOCRIT HEMOGLOBIN/HEMATOCRIT [facility] Start: 02-24-2023 SERUM CREATININE SERUM CREATININE [facility] Start: 02-23-2023 HEMOGLOBIN/HEMATOCRIT HEMOGLOBIN/HEMATOCRIT [facility] Start: 02-22-2023 SERUM CREATININE SERUM CREATININE [facility] Start: 02-20-2023 ANNUAL PCP TEAM CHRONIC DISEASE VISIT ANNUAL PCP TEAM CHRONIC DISEASE VISIT [facility] Start: 02-17-2023 HEMOGLOBIN/HEMATOCRIT HEMOGLOBIN/HEMATOCRIT [facility] Start: 01-16-2023 ANNUAL PCP TEAM CHRONIC DISEASE VISIT ANNUAL PCP TEAM CHRONIC DISEASE VISIT [facility] Start: 01-09-2023 HEMOGLOBIN/HEMATOCRIT HEMOGLOBIN/HEMATOCRIT [facility] Start: 01-09-2023 SERUM CREATININE SERUM CREATININE [facility] Start: 01-01-2023 BP CONTROLLED (<130/80) BP CONTROLLED (<130/80) [facility] Start: 12-29-2022 HEMOGLOBIN/HEMATOCRIT HEMOGLOBIN/HEMATOCRIT [facility] Start: 12-26-2022 HEMOGLOBIN/HEMATOCRIT HEMOGLOBIN/HEMATOCRIT [facility] Start: 12-16-2022 Hepatitis B screening URINE ALBUMIN:CREATININE RATIO [facility] Start: 12-15-2022 Adult depression screening assessment DEPRESSION SCREENING [facility] Start: 12-15-2022 ANNUAL PCP TEAM CHRONIC DISEASE VISIT ANNUAL PCP TEAM CHRONIC DISEASE VISIT [facility] Start: 12-15-2022 BP CONTROLLED (<130/80) BP CONTROLLED (<130/80) [facility] Start: 12-15-2022 HEMOGLOBIN/HEMATOCRIT HEMOGLOBIN/HEMATOCRIT [facility] Start: 12-15-2022 Hepatitis B surface antibody level LDL CHOLESTEROL [facility] Start: 12-03-2022 DEPRESSION ASSESSMENT DEPRESSION ASSESSMENT [facility] Comment on above: Postponed from 07/05/2022 (Declined at t his time) Start: 11-28-2022 HEMOGLOBIN/HEMATOCRIT HEMOGLOBIN/HEMATOCRIT [facility] Start: 11-28-2022 SERUM CREATININE SERUM CREATININE [facility] Start: 10-06-2022 End: 12-06-2022 Iron and Iron binding capacity panel - Serum or Plasma IRON + TIBC Lab Routine Iron malabsorption Expected: 10/06/2022, Expires: 12/06/2022 [facility] Work Phone: Comment on above: [...] of insulin (HCC) Expected: 10/05/2022, Expires: 12/05/2022 [facility] Work Phone: Comment on above: Expected: 10/05/2022, Expires: 3 Start: 10-05-2022 End: 12-05-2022 Comprehensive metabolic 2000 panel - Serum or Plasma COMP METABOLIC PANEL Lab Routine Atrial fibrillation, unspecified type (HCC) Hyperlipidemia with target LDL less than 70 Expected: 10/05/2022, Expires: 12/05/2022 [facility] Work Phone: Comment on above: Expected: 10/05/2022, Expires: 3 Start: 09-28-2022 End: 11-28-2022 Lipid 1996 panel - Serum or Plasma LIPID PANEL BASIC Lab Routine Hyperlipidemia with target LDL less than 70 Expected: 09/28/2022, Expires: 11/28/2022 [facility] Work Phone: Comment on above: Expected: 09/28/2022, Expires: 3 Start: 09-17-2022 Hemoglobin A1c/Hemoglobin.total in Blood HBA1C [facility] Start: 09-16-2022 ANNUAL PCP TEAM CHRONIC DISEASE VISIT ANNUAL PCP TEAM CHRONIC DISEASE VISIT [facility] Start: 09-16-2022 BP CONTROLLED (<130/80) BP CONTROLLED (<130/80) [facility] Start: 09-16-2022 SHINGRIX VACCINE (2 of 2) SHINGRIX VACCINE (2 of 2) [facility] Comment on above: Postponed from 01/03/2019 (Insurance Cov erage) Start: 09-13-2022 HEMOGLOBIN/HEMATOCRIT HEMOGLOBIN/HEMATOCRIT [facility] Start: 09-02-2022 End: 05-09-2023 US KIDNEY/BLADDER US KIDNEY/BLADDER Radiology Routine Neoplasm of uncertain behavior of right kidney Expected: 09/02/2022, Expires: 05/09/2023 [facility] Work Phone: Comment on above: Expected: 09/02/2022, Expires: 3 Start: 07-07-2022 End: 05-06-2023 Ct thorax w/o contrast material CT CHEST WO IVCON Radiology Routine Lung nodule, solitary Expected: 07/07/2022, Expires: 05/06/2023 [facility] Work Phone: Comment on above: Expected: 07/07/2022, Expires: 3 Start: 07-05-2022 ADVANCE DIRECTIVE DISCUSSION ADVANCE DIRECTIVE DISCUSSION [facility] Start: 07-05-2022 DEPRESSION ASSESSMENT DEPRESSION ASSESSMENT [facility] Start: 06-16-2022 Hemoglobin A1c/Hemoglobin.total in Blood HBA1C [facility] Start: 06-02-2022 SERUM CREATININE SERUM CREATININE [facility] Start: 05-07-2022 End: 07-07-2022 Basic metabolic 2000 panel - Serum or Plasma BASIC METABOLIC PNL Lab Routine Stage 3b chronic kidney disease (HCC) Iron deficiency anemia due to chronic blood loss Expected: 05/07/2022, Expires: 07/07/2022 [facility] Work Phone: Comment on above: Expected: 05/07/2022, Expires: 3 Start: 05-07-2022 End: 07-07-2022 CBC panel - Blood by Automated count CBC Lab Routine Stage 3b chronic kidney disease (HCC) Iron deficiency anemia due to chronic blood loss Expected: 05/07/2022, Expires: 07/07/2022 [facility] Work Phone: Comment on above: Expected: 05/07/2022, Expires: 3 Start: 03-30-2022 End: 05-30-2022 Basic metabolic 2000 panel - Serum or Plasma BASIC METABOLIC PNL Lab Routine Primary hypertension Expected: 03/30/2022, Expires: 05/30/2022 [facility] Work Phone: Comment on above: Expected: 03/30/2022, Expires: 2 Start: 03-05-2022 Influenza vaccination INFLUENZA (#1) [facility] Start: 02-20-2022 End: 04-22-2022 Basic metabolic 2000 panel - Serum or Plasma [facility] Work Phone: Comment on above: Expected: 02/20/2022, Expires: 2 Start: 02-19-2022 Hepatitis C antibody, confirmatory test DILATED RETINAL EXAM [facility] Start: 01-21-2022 End: 01-21-2023 SARS-CoV-2 (COVID-19) RNA [Presence] in Respiratory specimen by RANDOLPH with probe detection PRE-PROCEDURE & PRE-OPERATIVE COVID Microbiology Routine Paroxysmal atrial fibrillation (HCC) Expected: 01/21/2022, Expires: 01/21/2023 [facility] Work Phone: Comment on above: Expected: 01/21/2022, Expires: 3 Start: 12-30-2021 Administration of blood product [facility] Work Phone: Start: 12-30-2021 [facility] Work Phone: Start: 12-27-2021 End: 02-26-2022 CBC W Auto Differential panel - Blood CBC + DIFF Lab Routine Anemia, unspecified type Expected: 12/27/2021, Expires: 02/26/2022 [facility] Work Phone: Comment on above: Expected: 12/27/2021, Expires: 2 Start: 12-27-2021 End: 02-26-2022 Iron and Iron binding capacity panel - Serum or Plasma IRON + TIBC Lab Routine Anemia, unspecified type Expected: 12/27/2021, Expires: 02/26/2022 [facility] Work Phone: Comment on above: Expected: 12/27/2021, Expires: 2 Start: 12-15-2021 End: 02-14-2022 ALBUMIN/CREAT RATIO RND UR ALBUMIN/CREAT RATIO RND UR Lab Routine Type 2 diabetes mellitus with diabetic peripheral angiopathy without gangrene, without long-term current use of insulin (HCC) Expected: 12/15/2021, Expires: 02/14/2022 [facility] Work Phone: Comment on above: Expected: 12/15/2021, Expires: 2 Start: 12-11-2021 Hepatitis B surface antibody level LDL CHOLESTEROL [facility] Start: 11-26-2021 End: 01-26-2022 CBC panel - Blood by Automated count CBC Lab Routine PAD (peripheral artery disease) (HCC) Anemia due to chronic illness Expected: 11/26/2021, Expires: 01/26/2022 [facility] Work Phone: Comment on above: Expected: 11/26/2021, Expires: 2 Start: 11-26-2021 End: 01-26-2022 Renal function 2000 panel - Serum or Plasma RENAL FUNCTION PANEL Lab Routine PAD (peripheral artery disease) (HCC) Expected: 11/26/2021, Expires: 01/26/2022 [facility] Work Phone: Comment on above: Expected: 11/26/2021, Expires: 2 Start: 07-13-2021 COVID-19 VACCINE (4 - Booster for Pfizer series) COVID-19 VACCINE (4 - Booster for Pfizer series) [facility] Start: 07-12-2021 Hepatitis B screening URINE ALBUMIN:CREATININE RATIO [facility] Start: 07-05-2021 ADVANCE DIRECTIVE DISCUSSION ADVANCE DIRECTIVE DISCUSSION [facility] Start: 07-05-2021 DEPRESSION ASSESSMENT DEPRESSION ASSESSMENT [facility] Start: 06-12-2021 Hemoglobin A1c/Hemoglobin.total in Blood HBA1C [facility] Start: 05-08-2021 COVID-19 VACCINE (4 - Booster for Pfizer series) COVID-19 VACCINE (4 - Booster for Pfizer series) [facility] Start: 05-08-2021 COVID-19 VACCINE (4 - Pfizer series) COVID-19 VACCINE (4 - Pfizer series) [facility] Start: 2020 RSV Vaccine (1 - 1-dose 75+ series) RSV Vaccine (1 - 1-dose 75+ series) [facility] Start: 07-18-2020 Adult depression screening assessment DEPRESSION SCREENING [facility] Start: 05-25-2019 End: 05-25-2019 Office Visit 05/25/2019 Office Visit Cardiovascular Medicine Mars Chung, DO [address] [place] [address] [facility] Cardiology Start: 03-05-2019 Influenza vaccination INFLUENZA VACCINE (#1) [facility] Start: 01-03-2019 SHINGRIX VACCINE (2 of 2) SHINGRIX VACCINE (2 of 2) [facility] Start: 01-08-2015 3 comp foot exam completed DIABETIC FOOT EXAM [facility] Start: 2010 Pneumococcal vaccination PNEUMOCOCCAL VACCINE SERIES (1 of 2 - PCV13) [facility] Start: 2005 Hepatitis B Vaccine (1 of 3 - Risk 3-dose series) Hepatitis B Vaccine (1 of 3 - Risk 3-dose series) [facility] Start: 2005 RSV Vaccine (1 - 1-dose 60+ series) RSV Vaccine (1 - 1-dose 60+ series) [facility] Start: 1995 Colonoscopy COLON CANCER SCREENING DISCUSSION [facility] Start: 1995 Zoster vaccine hzv live for subcutaneous use ZOSTER (SHINGLES) VACCINE (1 of 2) [facility] Start: 1985 Fasting lipid profile LIPID SCREENING [facility] Start: 1985 Screening mammography MAMMOGRAM SCREENING DISCUSSION [facility] Start: 1966 Screening for malignant neoplasm of cervix PAP SMEAR DISCUSSION [facility] Start: 1964 Third diphtheria, tetanus and acellular pertussis (DTaP) vaccination TDAP (ADULT) [facility] Start: 1963 Anxiety Screening Anxiety Screening [facility] Start: 1963 BP CONTROLLED (<130/80) BP CONTROLLED (<130/80) [facility] Start: 1963 Depression Screening Depression Screening [facility] Start: 1963 Tetanus vaccination TETANUS [facility] Start: 1945 Hepatitis C antibody, confirmatory test HEPATITIS C VIRUS SCREENING [facility] Start: 1945 Potassium [Moles/Vol] POTASSIUM [facility] Start: 1945 Screening for osteoporosis DEXA SCAN DISCUSSION [facility] Alanine aminotransfe rase [Enzymatic activity/volume] in Serum or Plasma [facility] Albumin [Mass/volume ] in Serum or Plasma [facility] Alkaline phosphatase [Enzymatic activity/volume] in Serum or Plasma [facility] Anion gap in Serum o r Plasma [facility] Anion gap in Serum o r Plasma [facility] Bacteria identified in Unspecified specimen by Anaerobe culture [facility] Basic metabolic 2008 panel with ionized calcium - Serum or Plasma [facility] Bilirubin, total measurement [facility] BUN/Creatinine ratio [facility] BUN/Creatinine ratio [facility] Calcium [Mass/volume ] in Serum or Plasma [facility] Calcium [Mass/volume ] in Serum or Plasma [facility] Carbon dioxide, tota l [Moles/volume] in Central venous blood [facility] Carbon dioxide, tota l [Moles/volume] in Central venous blood [facility] CBC W Auto Different ial panel - Blood [facility] Cholesterol [Mass/vo lume] in Serum or Plasma [facility] Cholesterol in HDL [Mass/volume] in Serum or Plasma [facility] COVID & INFLUENZA A/ B & RSV NAAT, ROUTINE COVID & INFLUENZA A/B & RSV NAAT, ROUTINE Microbiology Routine Influenza-like illness Ordered: 07/05/2023 [facility] Work Phone: Comment on above: Ordered: 07/05/2023 Creatinine [Mass/vol ume] in Serum or Plasma [facility] Creatinine [Mass/vol ume] in Serum or Plasma [facility] End: 01-21-2023 ECG COMPLETE ECG COMPLETE ECG Routine Paroxysmal atrial fibrillation (HCC) 1 Occurrences starting 01/21/2022 until 01/21/2023 [facility] Work Phone: Comment on above: 1 Occurrences starting 01/21/2022 until 01/21/2023 End: 02-09-2023 ECG COMPLETE ECG COMPLETE ECG Routine Paroxysmal atrial fibrillation (HCC) Presence of Watchman left atrial appendage closure device 1 Occurrences starting 02/09/2022 until 02/09/2023 [facility] Work Phone: Comment on above: 1 Occurrences starting 02/09/2022 until 02/09/2023 End: 03-19-2023 ECG COMPLETE ECG COMPLETE ECG Routine Aortic prosthetic valve regurgitation, 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) 1 Occurrences starting 03/19/2022 until 03/19/2023 [facility] Work Phone: Comment on above: 1 Occurrences starting 03/19/2022 until 03/19/2023 ECG COMPLETE ECG COMPLETE ECG 03/19/2022 11:04 AM EDT [facility] ECG COMPLETE [facility] Work Phone: Comment on above: Ordered: 10/18/2023 ECG COMPLETE ECG COMPLETE ECG 11/08/2023 4:52 PM EDT [facility] End: 01-21-2023 ECHO TRANSESOPHAGEAL ECHO TRANSESOPHAGEAL Cardiology Routine Paroxysmal atrial fibrillation (HCC) 1 Occurrences starting 01/21/2022 until 01/21/2023 [facility] Work Phone: Comment on above: 1 Occurrences starting 01/21/2022 until 01/21/2023 End: 02-09-2023 ECHO TRANSESOPHAGEAL ECHO TRANSESOPHAGEAL Cardiology Routine Paroxysmal atrial fibrillation (HCC) Presence of Watchman left atrial appendage closure device 1 Occurrences starting 02/09/2022 until 02/09/2023 [facility] Work Phone: Comment on above: 1 Occurrences starting 02/09/2022 until 02/09/2023 ECHO TRANSESOPHAGEAL ECHO TRANSE SOPHAGEAL Cardiology Routine Longstanding persistent atrial fibrillation (HCC) Presence of Watchman left atrial appendage closure device Ordered: 03/04/2022 [facility] Work Phone: Comment on above: Ordered: 03/04/2022 End: 10-17-2024 Echocardiography ECHO Cardiology Routine Acute systolic CHF (congestive heart failure) (HCC) 1 Occurrences starting 10/18/2023 until 10/17/2024 [facility] Work Phone: Comment on above: 1 Occurrences starting 10/18/2023 until 10/17/2024 End: 01-01-2026 Echocardiography ECHO Cardiology Routine Chronic diastolic (congestive) heart failure (HCC) History of prosthetic aortic valve replacement Acute on chronic diastolic congestive heart failure (HCC) 1 Occurrences starting 01/01/2025 until 01/01/2026 [facility] Work Phone: Comment on above: 1 Occurrences starting 01/01/2025 until 01/01/2026 End: 01-01-2023 EGD DIAGNOSTIC EGD DIAGNOSTIC Endoscopy Routine Acute blood loss anemia Heme + stool Epigastric pain 1 Occurrences starting 01/01/2022 until 01/01/2023 [facility] Work Phone: Comment on above: 1 Occurrences starting 01/01/2022 until 01/01/2023 Erythrocyte mean corpuscular volume determination [facility] Erythrocyte mean corpuscular volume determination [facility] Ferritin [Mass/volum e] in Serum or Plasma [facility] Glucose [Mass/volume ] in Serum or Plasma [facility] Glucose [Mass/volume ] in Serum or Plasma [facility] Hematocrit [Volume Fraction] of Blood [facility] Hematocrit [Volume Fraction] of Blood [facility] Hemoglobin [Mass/vol ume] in Blood [facility] Hemoglobin [Mass/vol ume] in Blood [facility] Hemoglobin.braden rhodeslower [Presence] in Stool by Immunoassay FECAL OCCULT BLOOD TEST Lab Routine Heme + stool Ordered: 12/15/2021 [facility] Work Phone: Comment on above: Ordered: 12/15/2021 Hemoglobin.braden rhodeslower [Presence] in Stool by Immunoassay IMMUNOCHEMICAL FECAL OCCULT BLOOD TEST Lab Routine Acute systolic CHF (congestive heart failure) (HCC) Ordered: 11/04/2023 [facility] Work Phone: Comment on above: Ordered: 11/04/2023 Iron [Mass/mass] in Unspecified specimen [facility] Iron and Iron bindin g capacity panel - Serum or Plasma [facility] Iron saturation [Mas s Fraction] in Serum or Plasma [facility] Leukocytes [#/volume ] in Blood [facility] Leukocytes [#/volume ] in Blood [facility] Low density lipoprot ein cholesterol measurement [facility] Magnesium measurement 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 B prohormone N-Terminal [Mass/volume] in Serum or Plasma [facility] Neutrophil count [facility] Neutrophil count [facility] Neutrophil percent differential count [facility] Neutrophil percent differential count [facility] Patient Education [facility] Work Phone: Platelets [#/volume] in Blood [facility] Platelets [#/volume] in Blood [facility] Potassium measurement [facility] Potassium measurement [facility] End: 01-08-2024 PVR ANK PRESS [facility] PVR ANK PRESS [facility] Vascular Lab Routine 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HCC) Pain in both lower legs Atherosclerosis of [place] artery of both lower extremities with intermittent claudication (HCC) 1 Occurrences starting 01/07/2023 until 01/08/2024 [facility] Work Phone: Comment on above: 1 Occurrences starting 01/07/2023 until 01/08/2024 End: 01-08-2024 PVR LEG [facility] PVR LEG [facility] Vascular Lab Routine 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HCC) Pain in both lower legs Atherosclerosis of [place] artery of both lower extremities with intermittent claudication (HCC) 1 Occurrences starting 01/07/2023 until 01/08/2024 [facility] Work Phone: Comment on above: 1 Occurrences starting 01/07/2023 until 01/08/2024 Red blood cell count [facility] Red blood cell count [facility] Red cell distributio n width determination [facility] Red cell distributio n width determination [facility] Serum chloride measurement [facility] Serum chloride measurement [facility] Sodium measurement [facility] Sodium measurement [facility] SURGICAL PATHOLOGY [facility] Work Phone: Comment on above: Release Upon Ordering for 1 Occurrences starting 01/02/2022, 1 completed Total cholesterol:HD L ratio measurement [facility] Total iron binding capacity measurement [facility] Total protein measurement [facility] Triglycerides measurement [facility] Troponin T.cardiac [Mass/volume] in Serum or Plasma by High sensitivity method [facility] Urea nitrogen [Mass/volume] in Serum or Plasma [facility] Urea nitrogen [Mass/volume] in Serum or Plasma [facility] End: 01-08-2024 US CAROTID ARTERIES [facility] US CAROTID ARTERIES [facility] Vascular Lab Routine Bilateral carotid artery stenosis 1 Occurrences starting 01/07/2023 until 01/08/2024 [facility] Work Phone: Comment on above: 1 Occurrences starting 01/07/2023 until 01/08/2024 End: 12-20-2025 US Mesenteric arteries US MESENTERIC ARTERY [facility] Vascular Lab Routine Superior mesenteric artery stenosis (HCC) 1 Occurrences starting 12/20/2024 until 12/20/2025 [facility] Work Phone: Comment on above: 1 Occurrences starting 12/20/2024 until 12/20/2025 VLDL cholesterol measurement [facility] Immunizations Immunization Date Immunization Notes Care Provider Fa [facility] 07-07-2024 influenza, high dose seasonal, preservative-free Melida Eugene ANDERSONBRANCH LEAD Work Phone: [facility] 07-07-2024 influenza virus vacc ine, unspecified formulation Carla Burdick MD Work Phone: [facility] 04-12-2023 influenza (HD-IIV4) vaccine, age 65+ yr, high dose, quadrivalent, PF (FLUZONE HIGH-DOSE) Ct (I-Stat) Work Phone: [facility] 04-12-2023 influenza virus vacc ine, unspecified formulation Carla Burdick MD Work Phone: [facility] 05-22-2022 influenza (aIIV4) vaccine, age 65+ yr, quadrivalent, PF (FLUAD QUADRIVALENT) NA Rey HAMLIN Work Phone: [facility] 05-22-2022 influenza, high-dose , quadrivalent vaccine (FLUZONE HIGH DOSE QUADRIVALENT) Sonny Lund MD Work Phone: [facility] 05-22-2022 influenza virus vacc ine, unspecified formulation Yin Joseph MD Work Phone: [facility] 05-20-2021 influenza, high-dose , quadrivalent vaccine (FLUZONE HIGH DOSE QUADRIVALENT) Chandler Swan MD Work Phone: [facility] 10-09-2020 COVID-19 vaccine, ag e 12+ yr ([employer] - PURPLE TOP) Chandler Swan MD Work Phone: [facility] 09-18-2020 COVID-19 vaccine, ag e 12+ yr ([employer] - PURPLE [facility]) Chandler Swan MD Work Phone: [facility] 05-17-2020 influenza, high-dose , quadrivalent vaccine (FLUZONE HIGH DOSE QUADRIVALENT) Chandler Swan MD Work Phone: [facility] 05-09-2019 influenza, high dose seasonal, preservative-free Chandler Swan MD Work Phone: [facility] 11-08-2018 zoster vaccine recombinant Chandler Swan MD Work Phone: [facility] Work Phone: 05-09-2018 Seasonal trivalent influenza vaccine, adjuvanted, preservative free Chandler Swan MD Work Phone: [facility] 05-05-2017 influenza nasal, unspecified formulation Chandler Swan MD Work Phone: [facility] 05-05-2017 influenza, injectabl e, quadrivalent, contains preservative Chandler Swan MD Work Phone: [facility] 05-05-2017 influenza, seasonal, injectable Chandler Swan MD Work Phone: [facility] 05-05-2017 influenza virus vacc ine, unspecified formulation [facility] 04-05-2017 influenza, injectabl e, quadrivalent, preservative free Ct (I-Stat) Work Phone: [facility] 04-05-2017 influenza, seasonal, injectable [facility] 04-05-2017 influenza, seasonal, injectable, preservative free Chandler Swan MD Work Phone: [facility] 11-25-2016 pneumococcal conjuga te vaccine, 13 valent Chandler Swan MD Work Phone: [facility] Work Phone: 04-07-2016 influenza, high dose seasonal, preservative-free Chandler Swan MD Work Phone: [facility] Work Phone: 01-08-2014 tetanus toxoid, redu javid diphtheria toxoid, and acellular pertussis vaccine, adsorbed Chandler Swan MD Work Phone: [facility] Work Phone: 06-06-2013 pneumococcal polysaccharide vaccine, 23 valent Chandler Swan MD Work Phone: [facility] 05-14-2013 influenza nasal, unspecified formulation Chandler Swan MD Work Phone: [facility] 05-14-2013 influenza virus vacc ine, unspecified formulation Chandler Swan MD Work Phone: [facility] 05-14-2013 influenza, seasonal, injectable, preservative free Chandler Swan MD Work Phone: [facility] 05-20-2012 influenza, seasonal, injectable Chandler Swan MD Work Phone: [facility] 04-29-2011 influenza, seasonal, injectable, preservative free Chandler Swan MD Work Phone: [facility] 04-23-2009 influenza, seasonal, injectable Chandler Swan MD Work Phone: [facility] 07-07-1999 pneumococcal polysaccharide vaccine, 23 valkathy Encinas MD Work Phone: [facility] Work Phone: 07-05-1999 pneumococcal polysaccharide vaccine, 23 valent Chandlre Swan MD Work Phone: [facility] Payers Date Payer Category Payer Self-pay [id number] 2021 Medicare [id number] 2021 Medicare [id number] 2021 Medicare (Managed Care) PRADEEP NICKERSON [id number] 2021 Private Health Insurance [facility] [id number] 2019 Medicare MEDICARE HUMANA O PPO MEDICARE HUMANA O PPO xxxxxxxxx 2019-Present xxxxxxxxx [id number] 2015 Medicare SELF PAY INSURANCE [id number] Unknown [id number] 2.16840.1.163316.3.579.2. 462 Unknown [id number] 2.840.1.847894.3.579.2. 462 Unknown [id number] 2.16840.1.881145.3.579.2. 462 Unknown [id number] 2.16.840.1.937432.3.579.2. 462 Unknown [id number] 2.16.840.1.138275.3.579.2. 462 Unknown [id number] 2.16840.1.594381.3.579.2. 462 Unknown [id number] 2.16.840.1.888353.3.579.2. 462 Unknown [id number] 2.16840.1.419491.3.579.2. 462 Unknown [id number] 2.16.840.1.825273.3.579.2. 462 Unknown [id number] 2.16.840.1.457340.3.579.2. 462 Unknown [id number] 2.16.840.1.154368.3.579.2. 462 Unknown [id number] 2.840.1.008630.3.579.2. 462 Unknown [id number] 2..840.1.478491.3.579.2. 462 Unknown [id number] 2.840.1.032002.3.579.2. 462 Unknown [id number] 2.840.1.469095.3.579.2. 462 Unknown [id number] 2.840.1.512604.3.579.2. 462 Unknown [id number] 2.840.1.451352.3.579.2. 462 Unknown [id number] 2.840.1.022692.3.579.2. 462 Unknown [id number] 2.840.1.178803.3.579.2. 462 Unknown [id number] 2.840.1.045833.3.579.2. 462 Unknown [id number] 2.840.1.886422.3.579.2. 462 Unknown [id number] 2.840.1.930293.3.579.2. 462 Unknown [id number] 2.840.1.790635.3.579.2. 462 Unknown [id number] 2.840.1.502940.3.579.2. 462 Unknown [id number] 2.840.1.425540.3.579.2. 462 Unknown [id number] 2.840.1.559211.3.579.2. 462 Unknown [id number] 2.16.840.1.556067.3.579.2. 462 Unknown [id number] 2.16.840.1.197911.3.579.2. 462 Unknown [id number] 2.16.840.1.321153.3.579.2. 462 Unknown [id number] 2.16.840.1.068426.3.579.2. 462 Unknown [id number] 2.16.840.1.622150.3.579.2. 462 Unknown [id number] 2.16.840.1.773685.3.579.2. 462 Unknown [id number] 2.16.840.1.350297.3.579.2. 462 Unknown [id number] 2.16.840.1.659163.3.579.2. 462 Unknown [id number] 2.16.840.1.924546.3.579.2. 462 Unknown [id number] 2.16.840.1.234730.3.579.2. 462 Unknown [id number] 2.16.840.1.539680.3.579.2. 462 Unknown [id number] 2.16.840.1.806964.3.579.2. 462 Unknown [id number] 2.16.840.1.386421.3.579.2. 462 Unknown [id number] 2.16.840.1.080968.3.579.2. 462 Unknown [id number] 2.16.840.1.812429.3.579.2. 462 Social History Date Type Detail Facility Start: 01-19-2019 End: 03-22-2025 Tobacco smoking status [facility] Former smoker [facility] Start: 01-19-2019 Tobacco Comment smoked for a y ear, [address] years ago [facility] Start: 01-19-2019 Alcohol Comment occasional wine [employer] [facility] Start: 1945 Sex Assigned At Not on file [employer] Start: 07-05-1965 End: 02-11-1970 History of tobacco use Current smoker [facility] Start: 08-10-2019 End: 04-07-2024 Tobacco use and exposure Smokeless tobacco non-user [facility] Start: 09-16-2021 End: 12-15-2021 Alcohol intake Current drinker of alcohol (finding) [facility] Start: 09-16-2021 End: 01-07-2023 Alcohol intake [facility] Start: 10-25-2019 End: 10-29-2019 History SDOH Alcohol Frequency 2 [facility] Start: 10-25-2019 End: 10-29-2019 History SDOH Alcohol Std Drinks 1 [facility] Start: 01-31-2019 History SDOH Alcohol Comment red wine 2-3 times a week- occasional [facility] Start: 10-29-2019 History SDOH Social Connections Phone 5 [facility] Start: 10-29-2019 End: 02-24-2022 History SDOH Social Connections [employer] 3 [facility] Start: 10-29-2019 Education 15 [facility] Start: 09-05-2021 End: 05-14-2022 Exposure to SARS-CoV-2 (event) Not sure [facility] Start: 10-14-2021 End: 01-23-2022 Exposure to SARS-CoV-2 (event) Unable to assess [facility] Start: 02-13-2021 Tobacco smoking stat us MOIS Unknown if ever smoked [facility] Work Phone: Start: 1945 Sex Assigned At Female [facility] Start: 07-05-1965 End: 02-11-1970 History of tobacco use Cigarette Smoker [facility] Start: 06-08-2022 End: 12-20-2024 Alcohol intake Ex-drinker (finding) [facility] Start: 01-07-2023 End: 12-11-2024 Tobacco use panel [facility] Start: 06-05-2012 How hard is it for y ou to pay for the very basics like food, housing, medical care, and heating Patient refused [facility] (I/We) worried marcella forman (my/our) food would run out before (I/we) got money to buy more. DK or Refused [facility] Do you belong to any clubs or organizations such as quaker groups, unions, fraternal or athletic groups, or school groups? Yes [facility] Are you now , , , , never or living with a partner? [facility] How often to you hav e a drink containing alcohol? Monthly or less [facility] How many standard dr inks containing alcohol do you have on a typical day? 1 or 2 [facility] How often do you hav e 6 or more drinks on 1 occasion? Never [facility] Do you feel stress - tense, restless, nervous, or anxious, or unable to sleep at night because your mind is troubled all the time - these days [OSQ] Not at all [facility] Has the Admatic, or water [employer] threatened to shut off services in your home in past 12Mo No [facility] (I/We) worried marcella er (my/our) food would run out before (I/we) got money to buy more. Never true [facility] Start: 01-07-2025 End: 01-11-2025 Tobacco smoking status NHIS Never smoked tobacco (finding) [facility] Start: 11-15-2017 Alcohol Alcohol [facility] Start: 11-15-2017 Drugs Drugs [facility] Start: 11-15-2017 Lives Lives [facility] Start: 01-11-2025 Tobacco Use Tobacco Use [facility] Medical Equipment Procedure Code Equipment Code Equipment Origin al Text Equipment Identifier Dates Test blood sugar (s) 2 times daily. Dx: Type 2 DM - Controlled E11.9 Insulin: No [id number] Start: 01-19-2019 Comment on above: Test blood sugar(s) 2 times daily. Dx: Type 2 DM - Controlled E11.9 Insulin: No [id number] Sania Xt [id number] Start: 10-21-2020 [id number] [employer] Selam Surecaro [id number] Start: 10-21-2020 [id number] Capsurefievan Hawkins [id number] Start: 10-21-2020 Goals Date Patient Goal Desired Activity /State Personal health goal Functional Status Date Assessment Result Facility 01-11-2025 Functional status Chair [facility] Work Phone: 12-12-2024 Are you deaf, or do you have serious difficulty hearing Yes 12/12/2024 10:12 AM EDT Lizeth Jordan RN Yes [facility] 12-12-2024 Are you blind, or do you have serious difficulty seeing, even when wearing glasses No 12/12/2024 10:12 AM EDT Lizeth Jordan RN No [facility] 12-12-2024 Do you have serious difficulty walking or climbing stairs No 12/12/2024 10:12 AM EDT Lizeth Jordan RN No [facility] 12-12-2024 Do you have difficul ty dressing or bathing No 12/12/2024 10:12 AM EDT Lizeth Jordan RN No [facility] 12-12-2024 Because of a physica l, mental, or emotional condition, do you have difficulty doing errands alone such as visiting a physician's office or shopping No 12/12/2024 10:12 AM EDT Lizeth Jordan RN No [facility] 11-12-2023 Are you deaf, or do you have serious difficulty hearing No 11/12/2023 3:37 PM EDT Raina Coppola RN No [facility] 11-12-2023 Are you blind, or do you have serious difficulty seeing, even when wearing glasses No 11/12/2023 3:37 PM EDT Raina Coppola RN No [facility] 11-12-2023 Do you have serious difficulty walking or climbing stairs No 11/12/2023 3:37 PM EDT Raina Coppola RN No [facility] 11-12-2023 Do you have difficul ty dressing or bathing No 11/12/2023 3:37 PM ADIELT Raina Coppola RN No [facility] 11-12-2023 Because of a physica l, mental, or emotional condition, do you have difficulty doing errands alone such as visiting a physician's office or shopping No 11/12/2023 3:37 PM EDT Raina Coppola RN No [facility] Mental Status Date Assessment Result Facility 03-27-2025 Cognitive function Voice/Name [facility] Work Phone: 03-20-2025 Cognitive function Awake [facility] Work Phone: 01-11-2025 Cognitive function Voice/Name [facility] Work Phone: 12-12-2024 Because of a physica l, mental, or emotional condition, do you have serious difficulty concentrating, remembering, or making decisions No 12/12/2024 10:12 AM EDT Lizeth Jordan RN No [facility] 11-12-2023 Because of a physica l, mental, or emotional condition, do you have serious difficulty concentrating, remembering, or making decisions No 11/12/2023 3:37 PM EDT Raina Coppola RN No [facility] 12-30-2021 Cognitive function Voice/Name [facility] Work Phone: Clinical Notes 02-15-2021 to 03-29-2025 Note Date & Type Note Facility 03-29-2025 Progress note Note Date/Time March 29, 2025 4:05pm [facility] [address] [place] [id number] Progress Note - Wound Care 03/29/25 1237 MR#: [id number] Acct: [id number] Name: EBRTA SANCHES Rep #:[id number] : 1945 79 [...] months ago during a prolonged hospitalization in [place]. Bilateral foot/heel and right kaur. She has been applying Neosporin without anysignificant improvement. She reports a history of vascular surgery in [place]. 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 No significant tobacco use, smoked for about 6 months quit over 50 years ago. She reports a history of borderline diabetes. Currently not on medication. Appetite is fair, [...] Method Room Air Charges/Coding Procedures Integumentary 111xxx-113xx: 71143 Etelvina subq tissue 20 sq cm/< Physical [...] Date Recorded By Document 03/08/25 09:53 KW [id number] 03/08/25 10:07 KW Document 03/15/25 11:36 ML [id number] 03/15/25 11:44 ML Document 03/29/25 11:05 [id number] 03/29/25 11:15 LINDSAY 03/08/25 03/15/25 03/29/25 09:53 11:36 11:05 WC - Today's Visit Information Type of service Follow-up Visit Follow-up Visit Follow-up Visit (Physician/BRANCH LEAD (Physician/BRANCH LEAD (Physician/BRANCH LEAD ) ) ) Arrival Mode Ambulatory Ambulatory [...] Date Recorded By Document 03/08/25 09:53 KW [id number] 03/08/25 10:07 KW Document 03/15/25 11:36 ML [id number] 03/15/25 11:44 ML Document 03/29/25 11:15 [id number] 03/29/25 11:38 03/08/25 03/15/25 03/29/25 09:53 11:36 [...] Amt Small (1-33%) Large (67-100%) -Granulation Quality [place] -Slough/Fibrin Yes No -Necrosis Amt Small (1-33%) [...] Present (0 Small (1-33%) %) -Granulation Quality [place] -Slough/Fibrin Yes -Necrosis Amt None Present (0 [...] Recorded Date Recorded By Document 03/08/25 10:43 [id number] 03/08/25 10:54 GM Document 03/15/25 12:00 [id number] 03/15/25 12:09 GM Edit Result 03/15/25 12:00 GM (1) [id number] 03/21/25 12:09 GM Document 03/29/25 11:41 [id number] 03/29/25 11:46 JF (1) #2 RT HEEL [...] Date Recorded By Document 03/08/25 11:17 MT [id number] 03/08/25 11:20 MT Document 03/15/25 12:32 RB [id number] 03/15/25 12:34 RB Document 03/29/25 11:58 JF [id number] 03/29/25 12:01 03/08/25 03/15/25 03/29/25 11:17 12:32 11:58 Wound [...] if needed. This note was generated with Hotelementsation software. It may contain incorrectwords, spelling, and punctuation that were not noted in checking the note beforesigning. 03/29/25 [id number] <Electronically signed by Ebony Cerrato MD> Cosigner Signature (if applicable): CC: ~ Signed [facility] Work Phone: 1(238) 543-235009-11-2025 Progress note Author Ebony Cerrato [facility] Note Date/Time March 15, 2025 4:29pm [facility] [address] [place] [address] Progress Note - Wound Care 03/15/25 1309 MR#: [id number] Acct: [id number] Name: BERTA SANCHES Rep #:[id number] : 1945 79 From: Ebony collins MD PCP: Dr. Vincent Floers MD Status:REG R CR Location: History of Present Illness Date of Service: 03/15/25 Chief Complaint: Bilateral lower extremity ulcers History of Wound: Ms. Sanches is a 70-year-old who was referred to the wound center by her PCP due to nonhealing bilateral lower extremity ulceration. Said to have started months ago during a prolonged hospitalization in [place]. Bilateral foot/heel and right kaur. She has been applying Neosporin without anysignificant improvement. She reports a history of vascular surgery in [place]. 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 No significant tobacco use, smoked for about 6 months quit over 50 years ago. She reports a history of borderline diabetes. Currently not on medication. Appetite is fair, [...] Method Room Air Charges/Coding Procedures Integumentary 111xxx-113xx: 00569 Etelvina subq tissue 20 sq cm/< Physical [...] Start: 03/08/25 09:42 Freq: Status: Active Protocol: YANY.GENIET Activity Type Activity Date Activity User E-sign Co-sign Detail Recorded Client Recorded Date Recorded By Document 03/08/25 09:53 KW [id number] 03/08/25 10:07 KW Document 03/15/25 11:36 ML [id number] 03/15/25 11:44 ML 03/08/25 03/15/25 09:53 11:36 - Today's Visit Information Type of service Follow-up Visit Follow-up Visit (Physician/BRANCH LEAD (Physician/BRANCH LEAD ) ) Arrival Mode Ambulatory Ambulatory Transfer [...] Date Recorded By Document 03/08/25 09:53 KW [id number] 03/08/25 10:07 KW Document 03/15/25 11:36 ML [id number] 03/15/25 11:44 ML 03/08/25 03/15/25 09:53 11:36 [...] (67-100%) None Present (0 %) -Granulation Quality [place]nette -Necrosis Amt None Present (0 %) -Texture [...] Recorded Date Recorded By Document 03/08/25 10:43 [id number] 03/08/25 10:54 Document 03/15/25 12:00 [id number] 03/15/25 12:09 03/08/25 03/15/25 10:43 12:00 Wound [...] Date Recorded By Document 03/08/25 11:17 MT [id number] 03/08/25 11:20 MT Document 03/15/25 12:32 RB [id number] 03/15/25 12:34 RB 03/08/25 03/15/25 11:17 12:32 [...] if needed. This note was generated with Hotelementsation software. It may contain incorrectwords, spelling, and punctuation that were not noted in checking the note beforesigning. 03/15/25 7866 <Electronically signed by Ebony Cerrato MD> Cosigner Signature (if applicable): CC: ~ Signed [facility] Work Phone: 1(732) 964-700909-04-2025 Progress note Author Ebony Cerrato [facility] Note Date/Time March 08, 2025 12:44pm [facility] [address] [place] [address] Progress Note - Wound Care 03/08/25 1234 MR#: [id number] Acct: [id number] Name: BERTA SANCHES Rep #:[id number] : [...] months ago during a prolonged hospitalization in [place]. Bilateral foot/heel and right kaur. She has been applying Neosporin without anysignificant improvement. She reports a history of vascular surgery in [place]. 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 No significant tobacco use, smoked for about 6 months quit over 50 years ago. She reports a history of borderline diabetes. Currently not on medication. Appetite is fair, [...] Method Room Air Charges/Coding Procedures Integumentary 111xxx-113xx: 60694 Etelvina subq tissue 20 sq cm/< Physical [...] Recorded Date Recorded By Document 03/08/25 09:53 [id number] 03/08/25 10:07 03/08/25 09:53 - Today's Visit Information Type of service Follow-up Visit (Physician/BRANCH LEAD ) Arrival Mode Ambulatory Accompanied by Patient [...] Recorded Date Recorded By Document 03/08/25 09:53 MADYSON [id number] 03/08/25 10:07 KW 03/08/25 09:53 Wound Center [...] Attached -Granulation Amt Large (67-100%) -Granulation Quality [place]nette -Texture (Violet-wound Skin Appearance) Assessed,Callus -Moisture (Violet-wound [...] Recorded Date Recorded By Document 03/08/25 10:43 [id number] 03/08/25 10:54 GM 03/08/25 10:43 Wound Center Nurse 2 #4 [...] Tolerated Well -Offloading No -Debridement - Subq, 20sq cm No #2 RT HEEL -Time [...] Recorded Date Recorded By Document 03/08/25 11:17 DE [id number] 03/08/25 11:20 DE 03/08/25 11:17 Wound Care Center Nurse 3 [...] if needed. This note was generated with Dragon dictation software. It may contain incorrectwords, spelling, and punctuation that were not noted in checking the note beforesigning. 03/08/25 1244 <Electronically signed by Ebony Cerrato MD> Cosigner Signature (if applicable): CC: ~ Signed [facility] Work Phone: 1(367) 821-239608-28-2025 History and physical note Author Ebony Cerrato [facility] Note Date/Time March 01, 2025 9: 58pm [facility] [address] [place] [address] H&P Exam - Wound Care 03/01/25 1249 MR#: [id number] Acct: [id number] Name: BERTA SANCHES Rep #:[id number] : 1945 79 From: Ebony collins MD PCP: Dr. Vincent Flores MD Status:REG R CR Location: ADDENDUM by Dr. Ebony Cerrato MD on 03/01/25 at 2158 Visit Charges Office Visits / Consults: 55531 OV L3 Est 20min Procedures Integumentary 111xxx-113xx: 38158 Etelvina subq tissue 20 sq cm/< 03/01/258<Electronically signed by Ebony Cerrato MD> Cosigner Signature (if applicable): cc: ~* Signed History of Present Illness Date of Service: 03/01/25 Chief Complaint: Bilateral lower extremity ulcers History of Wound: Ms. Sanches is a 70-year-old who was referred to the wound center by her PCP due to nonhealing bilateral lower extremity ulceration. Said to have started months ago during a prolonged hospitalization in [place]. Bilateral foot/heel and right kaur. She has been applying Neosporin without anysignificant improvement. She reports a history of vascular surgery in [place]. 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 No significant tobacco use, smoked for about 6 months quit over 50 years ago. She reports a history of borderline diabetes. Currently not on medication. Appetite is fair, concern for recent significant weight loss.. Otherwise, she states that she feels well. 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 Casting And Curing Operator to contact place of hoahaoism No - Nurse 1 - General Ulcer Measurement Start: 03/01/25 09:07 Freq: Status: Active Protocol: Activity Type Activity Date Activity User E-sign Co-sign Detail Recorded Client Recorded Date Recorded By Document 03/01/25 09:12 KW [id number] 03/01/25 09:35 KW 03/01/25 09:12 Wound Center Nurse 1 #3 LT HEEL -Current Size (cm) - Length 0.1 -Current Size (cm) - Width 0.4 -Current Size (cm) - Depth 0.1 -Total Square Cm 0.04 -Date of Last Picture (Recall this 03/01/25 field) -Exudate Amt Small -Exudate Type Serosanguineous -Wound Margin Thickened -Granulation Amt Small (1-33%) -Granulation Quality P[place]nette -Necrosis Amt Large (67-100%) -Necrotic Tissue Type [...] Thickened -Granulation Amt Small (1-33%) -Granulation Quality [place]te -Necrosis Amt Large (67-100%) -Necrotic Tissue Type [...] Attached -Granulation Amt Large (67-100%) -Granulation Quality [place]te,Red -Texture (Violet-wound Skin Appearance) Assessed -Moisture (Violet-wound [...] Recorded Date Recorded By Document 03/01/25 09:52 [id number] 03/01/25 10:09 03/01/25 09:52 Wound Center Nurse [...] Recorded Date Recorded By Document 03/01/25 10:32 DE [id number] 03/01/25 10:36 DE 03/01/25 10:32 Wound Care Center Nurse 3 [...] Numeric Is Patient Pain Free? Yes - Visit Discharge Discharge Condition Stable Ambulatory [...] if needed. This note was generated with yoone dictation software. It may contain incorrectwords, spelling, and punctuation that were not noted in checking the note beforesigning. 03/01/252156 <Electronically signed by Ebony Cerrato MD> Cosigner Signature (if applicable): CC: ~ Signed [facility] Work Phone: 1(172) 164-765508-15-2025 Radiology Diagnostic study note [facility] Imaging Services [address] [place], [place] [address] Chest PA and Lateral MR#: [id number] Acct: [id number] Name: BERTA SANCHES Rep #: [id number] : 1945 F 79 From: Tevin Chaves MD PCP: Dr. Vincent Flores MD Status: REG E R Study:Chest PA and Lateral Date of Exam: 02/16/25 Exam# [id number] Ordering Dr: Glenna Pang MD PROCEDURE: CHEST [...] arteries suggestive of pulmonary hypertension. Reading Location: [facility] CC: Dr. Magdy Pang MD; Dr. Vincent Flores MD ~ 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: Signed [facility]08-07-2025 Procedure [facility] [address] [place], [place] [address] Pacemaker Check Date of Service: 02/08/25 1425 MR#: [id number] Acct: [id number] Name: BERTA SANCHES Rep #: [id number] : 1945 From: Pau wilson Age/Sex: 79/F Location: [facility] Status: Signed Billing Codes PM Device Codes: 41828 PM Dev Prog Eval, Dual Assessment and Plan Assessment and Plan (1) Presence of Watchman left atrial appendage closure device: Status: Acute (2) Pacemaker: Status: Acute Comment: 10/21/[address] [employer] [place] XT DR MRI Afoundriascan [id number] pulse generator programmed as AAIR (3) Cardiac arrhythmia: Status: Acute Qualifiers: Arrhythmia type: unspecified cardiac arrhythmia Qualified Code(s): I49.9 - Cardiac arrhythmia, unspecified 02/08/25 1426 > Date _ Pau Mccormack Signature: Date (if applicable) CC: ~ [facility]2025 Evaluation note* Diagnosis Onset Date Resolution Status [...] fat layer exposed acute May 03 11:15am PAD (peripheral artery disease) chronic May 03 11:15am PAF (paroxysmal atrial fibrillation) chronic May [...] (paroxysmal atrial fibrillation) chronic May 10 11:22am [facility] Work Phone: 1(171) 564-568907-28-2025 Telephone encounter Note* Telephone Encounter - Irma Hwang RN - 01/29/2025 5:17 PM EDT Pharmacy electronically requests the following refill(s) Requested Prescriptions Pending Prescriptions Disp Refills simvastatin (ZOCOR) 40 mg tablet [Pharmacy Med Name: SIMVASTATIN 20 MG TAB[*]] 90 tablet 3 Sig: Take 1 tablet by mouth daily at bedtime. Irma Hwang RN [facility]07-28-2025 Miscellaneous Notes* Telephone Encounter - Irma Hwang RN - 01/29/2025 5:17 PM EDT Pharmacy electronically requests the following refill(s) Requested Prescriptions Pending Prescriptions Disp Refills simvastatin (ZOCOR) 40 mg tablet [Pharmacy Med Name: SIMVASTATIN 20 MG TAB[*]] 90 tablet 3 Sig: Take 1 tablet by mouth daily at bedtime. Irma Hwang RN [facility] Discharge summary [facility] Medical Records Department [address] [place] [address] Instructions for Home/Discharge Instructions 01/11/25 1226 MR#: [id number] Acct: [id number] Name: BERTA SANCHES Rep #:[id number] : [...] Hernandez MD [Non-Staff] - Deysi Collazo NP, BRAND STRATEGY MANAGER-C [Primary Care Provider] - Disposition Disposition (needs filled in before D/C Order can be placed): Home, Self Care 01/11/25 1230Dianne Stovall DO CC: BRAND STRATEGY MANAGER-C Deysi Collazo; Dr. Jeremy Mcgarry MD; Dr. Radha Heller MD ~ Signed [facility]07-10-2025 [facility] Progress note Author [facility] Note Date/Time January 10, 2025 6:26p [facility] Medical Records Department [address] [place] [address] Progress Note - Hospitalist 01/10/25 1823 MR#: [id number] Acct: [id number] Name: BERTA SANCHES SCOTTIE Rep #:[id number] : 1945 79 From: Dianne Stovall DO PCP: JARROD Cantu Status:ADM I N Location: [place] [address] Reason for Visit Reason for Visit: Diagnoses [...] and Output for Last 24 Hours 01/08/25 01/09/2501/10/25 23:59 23:59 23:59 Intake Total 800 / [...] team: 35-minute Charges/Coding Visit Charges Inpatient E&M: 69684 Subs Hosp L2 NIHSS NIHSS Nursing Documentation NIHSS Nursing Documentation: NIHSS: Ischemic Stroke/TIA Start: 01/08/25 00:49 Freq: [id number] Status: Complete Protocol: Activity Type Activity Date Activity User E-sign Co-sign Detail Recorded Client Recorded Date Recorded By Document 01/08/25 03:22 [id number] 01/08/25 03:24 01/08/25 03:22 NIH Stroke Scale [NIHSS] A score of 0 is normal or asymptomatic . Total possible score is [...] 1 Query Text:A score of 0 is normal or asymptomatic. Total possible score is 42 [...] and with change in RN caregiver. Freq: [id number] Protocol: Activity Type Activity Date Activity User E-sign Co-sign Detail Recorded Client Recorded Date Recorded By Document 01/08/25 12:00 [id number] 01/08/25 12:10 01/08/25 12:00 NIH Stroke Scale [NIHSS] A score of 0 is normal or asymptomatic . Total possible score is [...] 1 Query Text:A score of 0 is normal or asymptomatic. Total possible score is 42 [...] Cosigner Signature (if applicable): CC: ~ Signed [facility] Work Phone: 1(246) 664-801107-09-2025 Progress note [facility] Medical Records Department [address] [place] [address] Progress Note - Hospitalist 01/10/25 1823 MR#: [id number] Acct: [id number] Name: BERTA SANCHES SCOTTIE Rep #:[id number] : 1945 79 From: Dianne Stovall DO PCP: JARROD Cantu Status:ADM I N Location: [place] [address] Reason for Visit Reason for Visit: Diagnoses [...] team: 35-minute Charges/Coding Visit Charges Inpatient E&M: 67499 Subs Hosp L2 NIHSS NIHSS Nursing Documentation NIHSS Nursing Documentation: NIHSS: Ischemic Stroke/TIA Start: 01/08/25 00:49 Freq: [id number] Status: Complete Protocol: Activity Type Activity Date Activity User E-sign Co-sign Detail Recorded Client Recorded Date Recorded By Document 01/08/25 03:22 [id number] 01/08/25 03:24 01/08/25 03:22 NIH Stroke Scale [NIHSS] A score of 0 is normal or asymptomatic . Total possible score is [...] 1 Query Text:A score of 0 is normal or asymptomatic. Total possible score is 42 [...] and with change in RN caregiver. Freq: [id number] Protocol: Activity Type Activity Date Activity User E-sign Co-sign Detail Recorded Client Recorded Date Recorded By Document 01/08/25 12:00 [id number] 01/08/25 12:10 01/08/25 12:00 NIH Stroke Scale [NIHSS] A score of 0 is normal or asymptomatic . Total possible score is [...] 1 Query Text:A score of 0 is normal or asymptomatic. Total possible score is 42 . ED: Notify Physician for NIHSS increase by > / = 3 points. Inpatient: RN or Physician to activate a stroke alert for NIHSS increase of > / = 3 points. Coma Scale [Assess] -Eye Opening Spontaneous -Motor Obeys Commands -Verbal Oriented [Total] -Coma Scale Total 15 01/10/25 1826 Cosigner Signature (if applicable): CC: ~ Signed [facility]07-09-2025 Progress note Author Jeremy Mcgarry [facility] Note Date/Time January 10, 2025 11:52 am [facility] Medical Records Department [address] [place] [address] Progress Note - Nephrology 01/10/25 1150 MR#: [id number] Acct: [id number] Name: BERTA SANCHES SCOTTIE Rep #:[id number] : 1945 79 From: Jeremy ferris MD PCP: JARROD Cantu Status:ADM I N Location: [place] [address] Subjective Subjective No new complaints today Objective [...] disease, stage 3b: PLAN: Reviewed records from [facility] where her primary care physician is, from care everywhere from [facility] During her hospitalization in October,[facility] where she was admitted in December. 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. She also has left-sided renal artery stenosis [...] call insurance company about feasibility of getting Farxiga/Jarnabila/Steglatro Will arrange follow-up in office next week (2) MONIQUE (acute kidney injury): 01/10/25 1152 <Electronically signed by Jeremy Mcgarry MD> Cosigner Signature (if applicable): CC: ~ Signed [facility] Work Phone: 1(491) 586-360107-09-2025 Progress note [facility] Medical Records Department [address] [place] [address] Progress Note - Nephrology 01/10/25 1150 MR#: [id number] Acct: [id number] Name: BERTA SANCHES Rep #:[id number] : 1945 79 From: Jeremy ferris MD PCP: JARROD Cantu Status:ADM I N Location: [place] [address] Subjective Subjective No new complaints today Objective [...] disease, stage 3b: PLAN: Reviewed records from [facility] where her primary care physician is, from care everywhere from [facility] During her hospitalization in October,[facility] where she was admitted [facility]. 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. She also has left-sided renal artery stenosis [...] Cosigner Signature (if applicable): CC: ~ Signed [facility]07-08-2025 Progress note Author Dianne Stovall [facility] Note Date/Time January 09, 2025 2:38p m [facility] Medical Records Department [address] [place] [address] Progress Note - Hospitalist 01/08/25 1849 MR#: [id number] Acct: [id number] Name: BERTA SANCHES Rep #:[id number] : 1945 79 From: Dianne Stovall DO PCP: Deysi Collazo BRAND STRATEGY MANAGER-Ivett Status:ADM I N Location: [place] [address] Reason for Visit Reason for Visit: Diagnoses [...] for this. Patient was also hospitalized recently [facility] for congestive heart failure. Patient told me she wanted to change rn medicare, I made her an appointment to follow-up [...] -675 Lab / Micro Data 01/08/25 06:06 07/08/25 05:38 Labs: Laboratory Results - last 24 hr 01/07/25 22:51: POC Glucose 166 H 01/08/25 06:06: WBC 6.3, RBC 3.18 L, Hgb 9.0 L, Hct 28.4 L, MCV 89.3, MCH 28.3, MCHC 31.7 L, RDW Std Deviation 64.7 H, RDW Coeff of Yonis 19.8 H, Plt Count 155, MPV 9.6, Immature Gran % (Auto) 0.300, Neut % (Auto) 47.3, Lymph % (Auto) 33.8, Sebastian % (Auto) 15.5 H, Eos % (Auto) [...] to call report. 11:17 p.m. Reading Location: [facility] Head/Neck CTA 01/07/25 23:08 IMPRESSION: BILATERAL CALCIFIC PLAQUE, PRIMARILY AT THE BIFURCATION BILATERALLY LESS THAN 50% STENOSIS. OCCASIONALLY OTHER PLAQUES ARE SEEN BUT NON FLOW LIMITING. NO LARGE VESSEL OCCLUSION. Requested contact with the referring physician at 11:55 p.m. verbal report to charge nurse Melida at 12:05 a.m. Reading Location: [facility] Carotid Duplex 01/08/25 05:04 Interpretation Summary Mild [...] NIHSS: Ischemic Stroke/TIA Start: 01/08/25 00:49 Freq: [id number] Status: Complete Protocol: Activity Type Activity Date Activity User E-sign Co-sign Detail Recorded Client Recorded Date Recorded By Document 01/08/25 03:22 [id number] 01/08/25 03:24 07/07/25 03:22 NIH Stroke Scale [NIHSS] A score of 0 is normal or asymptomatic . Total possible score is [...] 1 Query Text:A score of 0 is normal or asymptomatic. Total possible score is 42 [...] and with change in RN caregiver. Freq: [id number] Protocol: Activity Type Activity Date Activity User E-sign Co-sign Detail Recorded Client Recorded Date Recorded By Document 01/08/25 12:00 [id number] 01/08/25 12:10 01/08/25 12:00 NIH Stroke Scale [NIHSS] A score of 0 is normal or asymptomatic . Total possible score is [...] 1 Query Text:A score of 0 is normal or asymptomatic. Total possible score is 42 [...] team: 35 minutes Visit Charges Inpatient E&M: 37173 Subs Hosp L2 01/09/25 1438<Electronically signed by Dianne Stovall DO> Cosigner Signature (if applicable): cc: ~* Signed [facility] Work Phone: 1(958) 420-786807-08-2025 Progress note Author Dianne Stovall [facility] Note Date/Time January 09, 2025 2:37p [facility] Medical Records Department [address] [place] [address] Progress Note - Hospitalist 01/09/25 1434 MR#: [id number] Acct: [id number] Name: BERTA SANCHES Rep #:[id number] : 1945 79 From: Dianne Stovall DO PCP: JARROD Cantu Status:ADM I N Location: [place] [address] Reason for Visit Reason for Visit: Diagnoses [...] 35 minutes Charges/Coding Visit Charges Inpatient E&M: 05357 Subs Hosp L2 NIHSS NIHSS Nursing Documentation NIHSS Nursing Documentation: NIHSS: Ischemic Stroke/TIA Start: 01/08/25 00:49 Freq: [id number] Status: Complete Protocol: Activity Type Activity Date Activity User E-sign Co-sign Detail Recorded Client Recorded Date Recorded By Document 01/08/25 03:22 [id number] 01/08/25 03:24 01/08/25 03:22 NIH Stroke Scale [NIHSS] A score of 0 is normal or asymptomatic . Total possible score is [...] 1 Query Text:A score of 0 is normal or asymptomatic. Total possible score is 42 [...] and with change in RN caregiver. Freq: [id number] Protocol: Activity Type Activity Date Activity User E-sign Co-sign Detail Recorded Client Recorded Date Recorded By Document 01/08/25 12:00 [id number] 01/08/25 12:10 01/08/25 12:00 NIH Stroke Scale [NIHSS] A score of 0 is normal or asymptomatic . Total possible score is [...] 1 Query Text:A score of 0 is normal or asymptomatic. Total possible score is 42 [...] Cosigner Signature (if applicable): CC: ~ Signed [facility] Work Phone: 1(290) 295-537407-08-2025 Progress note [facility] Medical Records Department [address] [place] [address] Progress Note - Hospitalist 01/08/25 5999 MR#: [id number] Acct: [id number] Name: BERTA SANCHES Rep #:[id number] : 1945 79 From: Dianne Stovall DO PCP: JARROD Cantu Status:ADM I N Location: [place] [address] Reason for Visit Reason for Visit: Diagnoses [...] intervention for this. Patient was also hospitalized [facility] for congestive heart failure. Patient told me she wanted to change rn medicare, I made her an appointment to follow-up [...] % (Auto) 47.3, Lymph % (Auto) 33.8, Sebastian % (Auto) 15.5 H, Eos % (Auto) [...] to call report. 11:17 p.m. Reading Location: [facility] Head/Neck CTA 01/07/25 23:08 IMPRESSION: BILATERAL CALCIFIC PLAQUE, PRIMARILY AT THE BIFURCATION BILATERALLY LESS THAN 50% STENOSIS. OCCASIONALLY OTHER PLAQUES ARE SEEN BUT NON FLOW LIMITING. NO LARGE VESSEL OCCLUSION. Requested contact with the referring physician at 11:55 p.m. verbal report to charge nurse Meliad at12:05 a.m. Reading Location: [facility] Carotid Duplex 01/08/25 05:04 Interpretation Summary Mild [...] NIHSS: Ischemic Stroke/TIA Start: 01/08/25 00:49 Freq: [id number] Status: Complete Protocol: Activity Type Activity Date Activity User E-sign Co-sign Detail Recorded Client Recorded Date Recorded By Document 01/08/25 03:22 [id number] 01/08/25 03:24 01/08/25 03:22 NIH Stroke Scale [NIHSS] A score of 0 is normal or asymptomatic . Total possible score is [...] 1 Query Text:A score of 0 is normal or asymptomatic. Total possible score is 42 [...] and with change in RN caregiver. Freq: [id number] Protocol: Activity Type Activity Date Activity User E-sign Co-sign Detail Recorded Client Recorded Date Recorded By Document 01/08/25 12:00 [id number] 01/08/25 12:10 01/08/25 12:00 NIH Stroke Scale [NIHSS] A score of 0 is normal or asymptomatic . Total possible score is [...] 1 Query Text:A score of 0 is normal or asymptomatic. Total possible score is 42 [...] team: 35 minutes Visit Charges Inpatient E&M: 91033 Subs Hosp L2 01/09/25 1438 Cosigner Signature (if applicable): cc: ~* Signed [facility]07-08-2025 Progress note [facility] Medical Records Department [address] [place] [address] Progress Note - Hospitalist 01/09/25 1434 MR#: [id number] Acct: [id number] Name: BERTA SANCHES SCOTTIE Rep #:[id number] : 1945 79 From: Dianne Stovall DO PCP: Deysi Collazo, TALI-C Status:ADM I N Location: [place] [address] Reason for Visit Reason for Visit: Diagnoses [...] 35 minutes Charges/Coding Visit Charges Inpatient E&M: 94250 Subs Hosp L2 NIHSS NIHSS Nursing Documentation NIHSS Nursing Documentation: NIHSS: Ischemic Stroke/TIA Start: 01/08/25 00:49 Freq: [id number] Status: Complete Protocol: Activity Type Activity Date Activity User E-sign Co-sign Detail Recorded Client Recorded Date Recorded By Document 01/08/25 03:22 [id number] 01/08/25 03:24 01/08/25 03:22 NIH Stroke Scale [NIHSS] A score of 0 is normal or asymptomatic . Total possible score is [...] 1 Query Text:A score of 0 is normal or asymptomatic. Total possible score is 42 [...] and with change in RN caregiver. Freq: [id number] Protocol: Activity Type Activity Date Activity User E-sign Co-sign Detail Recorded Client Recorded Date Recorded By Document 01/08/25 12:00 [id number] 01/08/25 12:10 01/08/25 12:00 NIH Stroke Scale [NIHSS] A score of 0 is normal or asymptomatic . Total possible score is [...] 1 Query Text:A score of 0 is normal or asymptomatic. Total possible score is 42 . ED: Notify Physician for NIHSS increase by > / = 3 points. Inpatient: RN or Physician to activate a stroke alert for NIHSS increase of > / = 3 points. Coma Scale [Assess] -Eye Opening Spontaneous -Motor Obeys Commands -Verbal Oriented [Total] -Coma Scale Total 15 01/09/25 1437 Cosigner Signature (if applicable): CC: ~ Signed [facility]07-08-2025 Progress note Author Jeremy Mcgarry [facility] Note Date/Time January 09, 2025 12:22 pm [facility] Medical Records Department [address] [place] [address] Progress Note 01/09/25 1221 MR#: [id number] Acct: [id number] Name: BERTA SANCHES Rep #:[id number] : 1945 79 From: Jeremy ferris MD PCP: JARROD Cantu Status:ADM I N Location: [place] [address] Progress Note patient was in bathroom today [...] Cosigner Signature (if applicable): CC: ~ Signed [facility] Work Phone: 1(167) 275-739807-08-2025 Progress note [facility] Medical Records Department [address] [place] [address] Progress Note 01/09/25 1221 MR#: [id number] Acct: [id number] Name: BERTA SANCHES Rep #:[id number] : 1945 79 From: Jeremy ferris MD PCP: JARROD Cantu Status:ADM I N Location: [place] [address] Progress Note patient was in bathroom today could not examine labs reviewed cr stable plan continue lasix drip till closer to dry weight at dc add bumex 2 mg BID/lasix 80 mg BID continue aldactone metolazone 5 mg as needed KCL 20 meq daily will arrange follow up after dc 01/09/25 1222 Jeremy Mcgarry MD Cosigner Signature (if applicable): CC: ~ Signed [facility]07-08-2025 Discharge summary Author Dianne Stovall [facility] Note Date/Time January 09, 2025 9:02a m [facility] Medical Records Department [address] [place] [address] Instructions for Home/Discharge Instructions 01/08/25 1536 MR#: [id number] Acct: [id number] Name: BERTA SANCHES Rep #:[id number] : 1945 79 From: Dianne Stovall DO PCP: HOWARD CantuC Status:ADM I N Discharge Instructions Diet Discharge [...] Hernandez MD [Non-Staff] - Deysi Collazo NP, BRAND STRATEGY MANAGER-C [Primary Care Provider] - Disposition Disposition (needs filled in before D/C Order can be placed): Home, Self Care 01/09/25901<Electronically signed by Dianne Stovall DO>Dianne Stovall DO CC: Josefina Arrieta; Chelsi Pulido; BRAND STRATEGY MANAGER-C Deysi Collazo; Jonathan Funez; Charley Berger MD; [...] Gates DO; Jessa Lee MD ~ Signed [facility] Work Phone: 1(596) 793-223307-08-2025 Discharge summary [facility] Medical Records Department [facility] [place] [address] Instructions for Home/Discharge Instructions 01/08/25 1536 MR#: [id number] Acct: [id number] Name: BERTA SANCHES Rep #:[id number] : [...] Hernandez MD [Non-Staff] - Deysi Collazo NP, BRAND STRATEGY MANAGER-C [Primary Care Provider] - Disposition Disposition (needs filled in before D/C Order can be placed): Home, Self Care 01/09/25 0902Dianne Stovall DO CC: Josefina Arrieta; Chelsi Pulido; BRAND STRATEGY MANAGER-C Deysi Collazo; Jonathan Funez; Charley Berger MD; [...] Gates DO; Jessa Lee MD ~ Signed [facility]07-07-2025 Consult note Author Jeremy Mcgarry [facility] Note Date/Time January 08, 2025 5:03p [facility] Medical Records Department [address] [place] [address] Consultation - Nephrology 01/08/25 1655 MR#: [id number] Acct: [id number] Name: BERTA SANCHES SCOTTIE Rep #:[id number] : 1945 79 From: Jeremy ferris MD PCP: Deysi Haagen, BRAND STRATEGY MANAGER-C Status:ADM I N Location: [place] [id number] Assessment & Plan Assessment/Plan (1) Chronic kidney disease, stage 3b: PLAN: Reviewed records from [facility] where her primary care physician is, from care everywhere from [facility] During her hospitalization in October,[facility] where she was admitted in December. 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 She recently saw Dr. Shatsa Silva and no intervention was planned since it was unilateral stenosis. Discussed with . We reviewed the medication list, daily weights. Discussed with hospitalist about plan (2) MONIQUE (acute kidney injury): HPI Consult Data Date of Consult: 01/08/25 HPI Narrative Reason for Consultation: monique vs ckd 3b HPI Narrative: BERTA ASNCHES, is a 79 F who presents to the hospital with shortness of breath. Nephrology on consultation in view of kidney disease. Somewhat complicated course recently. She is originally from [place], was in [place] for the winter, had a long hospitalization in [facility]. History of congestive heart failure with diastolic dysfunction, BNP has been consistently high. Was seeing cardiology at [facility]. Has been on diuretic, despite that worsening heart failure. Apparently gained more than 10 pounds. Baseline weight is around 140 pounds, went up to 154 pounds. Being started on Lasix drip. [facility] Medical History (Updated 01/08/25 @ 16:58 [...] % (Auto) 47.3, Lymph % (Auto) 33.8, Sebastian % (Auto) 15.5 H, Eos % (Auto) [...] to call report. 11:17 p.m. Reading Location: [facility] Head/Neck CTA 01/07/25 23:08 IMPRESSION: BILATERAL CALCIFIC PLAQUE, PRIMARILY AT THE BIFURCATION BILATERALLY LESS THAN 50% STENOSIS. OCCASIONALLY OTHER PLAQUES ARE SEEN BUT NON FLOW LIMITING. NO LARGE VESSEL OCCLUSION. Requested contact with the referring physician at 11:55 p.m. verbal report to charge nurse Melida at 12:05 a.m. Reading Location: [facility] Carotid Duplex 01/08/25 05:04 Interpretation Summary Mild (<50%) stenosis right extracranial internal carotid. Mild (<50%) stenosis left extracranial internal carotid. Patent and antegrade vertebrals bilaterally. Ordering Physician: Carla Ha Referring Physician: Deysi Collazo Performed By: Sony Perez RVT 01/08/25 1703 <Electronically signed by Jeremy Mcgarry MD> Cosigner Signature (if applicable): CC: BRAND STRATEGY MANAGER-C Deysi Collazo~ Signed [facility] Work Phone: 1(102) 663-805607-07-2025 Progress note Author Noris Brock [facility] Note Date/Time January 08, 2025 3:23p m [facility] Medical Records Department [address] [place] [address] Progress Note - Neurology 01/08/25 1514 MR#: [id number] Acct: [id number] Name: BERTA SANCHES SCOTTIE Rep #:[id number] : 1945 79 From: Noris Brock MD PCP: JARROD Cantu Status:ADM I N Location: [place] [address] Objective Data Objective Data Vital Signs: Vital [...] % (Auto) 47.3, Lymph % (Auto) 33.8, Sebastian % (Auto) 15.5 H, Eos % (Auto) [...] to call report. 11:17 p.m. Reading Location: [facility] Head/Neck CTA 01/07/25 23:08 IMPRESSION: BILATERAL CALCIFIC PLAQUE, PRIMARILY AT THE BIFURCATION BILATERALLY LESS THAN 50% STENOSIS. OCCASIONALLY OTHER PLAQUES ARE SEEN BUT NON FLOW LIMITING. NO LARGE VESSEL OCCLUSION. Requested contact with the referring physician at 11:55 p.m. verbal report to charge nurse Melida at 12:05 a.m. Reading Location: [facility] Carotid Duplex 01/08/25 05:04 Interpretation Summary Mild [...] NIHSS: Ischemic Stroke/TIA Start: 01/08/25 00:49 Freq: [id number] Status: Complete Protocol: Activity Type Activity Date Activity User E-sign Co-sign Detail Recorded Client Recorded Date Recorded By Document 01/08/25 03:22 [id number] 01/08/25 03:24 RM 01/08/25 03:22 NIH Stroke Scale [NIHSS] A score of 0 is normal or asymptomatic . Total possible score is [...] 1 Query Text:A score of 0 is normal or asymptomatic. Total possible score is 42 [...] and with change in RN caregiver. Freq: [id number] Protocol: Activity Type Activity Date Activity User E-sign Co-sign Detail Recorded Client Recorded Date Recorded By Document 01/08/25 12:00 [id number] 01/08/25 12:10 01/08/25 12:00 NIH Stroke Scale [NIHSS] A score of 0 is normal or asymptomatic . Total possible score is [...] 0 Query Text:A score of 0 is normal or asymptomatic. Total possible score is 42 [...] Cosigner Signature (if applicable): CC: ~ Signed [facility] Work Phone: 1(757) 290-675607-07-2025 Consult note [facility] Medical Records Department [address] [place] [address] Consultation - Nephrology 01/08/25 1655 MR#: [id number] Acct: [id number] Name: BERTA SANCHES Rep #:[id number] : 1945 79 From: Jeremy ferris MD PCP: JARROD Cantu Status:ADM I N Location: [place] [address] Assessment & Plan Assessment/Plan (1) Chronic kidney disease, stage 3b: PLAN: Reviewed records from [facility] where her primary care physician is, from care everywhere from [facility] During her hospitalization in October,[facility] where she was admitted [facility]. 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. She also has left-sided renal artery stenosis [...] complicated course recently. She is originally from [place], was in [place] for the winter, had a long hospitalization in [facility]. History of congestive heart failure with diastolic dysfunction, BNP has been consistently high. Wasseeing cardiology at [facility]. Has been on diuretic, despite that worsening heart failure. Apparently gained more than 10 pounds. Baseline weight is around 140 pounds, went up to 154 pounds. Being started on Lasix drip. [facility] Medical History (Updated 01/08/25 @ 16:58 [...] % (Auto) 47.3, Lymph % (Auto) 33.8, Sebastian % (Auto) 15.5 H, Eos % (Auto) [...] to call report. 11:17 p.m. Reading Location: [facility] Head/Neck CTA 01/07/25 23:08 IMPRESSION: BILATERAL CALCIFIC PLAQUE, PRIMARILY AT THE BIFURCATION BILATERALLY LESS THAN 50% STENOSIS. OCCASIONALLY OTHER PLAQUES ARE SEEN BUT NON FLOW LIMITING. NO LARGE VESSEL OCCLUSION. Requested contact with the referring physician at 11:55 p.m. verbal report to charge nurse Melida at12:05 a.m. Reading Location: [facility] Carotid Duplex 01/08/25 05:04 Interpretation Summary Mild (<50%) stenosis right extracranial internal carotid. Mild (<50%) stenosis left extracranial internal carotid. Patent and antegrade vertebrals bilaterally. Ordering Physician: Carla Ha Referring Physician: Deysi Collazo Performed By: Sony Perez RVT 01/08/25 1703 Cosigner Signature (if applicable): CC: BRAND STRATEGY MANAGER-C Deysi Collazo~ Signed [facility]07-07-2025 Progress note [facility] Medical Records Department [address] [place] [address] Progress Note - Neurology 01/08/25 1514 MR#: [id number] Acct: [id number] Name: TAMERA SANCHESRA RUBIN Rep #:[id number] : 1945 79 From: Noris Brock MD PCP: JARROD Cantu Status:ADM I N Location: [place] [address] Objective Data Objective Data Vital Signs: Vital [...] % (Auto) 47.3, Lymph % (Auto) 33.8, Sebastian % (Auto) 15.5 H, Eos % (Auto) [...] to call report. 11:17 p.m. Reading Location: [facility] Head/Neck CTA 01/07/25 23:08 IMPRESSION: BILATERAL CALCIFIC PLAQUE, PRIMARILY AT THE BIFURCATION BILATERALLY LESS THAN 50% STENOSIS. OCCASIONALLY OTHER PLAQUES ARE SEEN BUT NON FLOW LIMITING. NO LARGE VESSEL OCCLUSION. Requested contact with the referring physician at 11:55 p.m. verbal report to charge nurse Melida at12:05 a.m. Reading Location: [facility] Carotid Duplex 01/08/25 05:04 Interpretation Summary Mild [...] NIHSS: Ischemic Stroke/TIA Start: 01/08/25 00:49 Freq: [id number] Status: Complete Protocol: Activity Type Activity Date Activity User E-sign Co-sign Detail Recorded Client Recorded Date Recorded By Document 01/08/25 03:22 [id number] 01/08/25 03:24 01/08/25 03:22 NIH Stroke Scale [NIHSS] A score of 0 is normal or asymptomatic . Total possible score is [...] 1 Query Text:A score of 0 is normal or asymptomatic. Total possible score is 42 [...] and with change in RN caregiver. Freq: [id number] Protocol: Activity Type Activity Date Activity User E-sign Co-sign Detail Recorded Client Recorded Date Recorded By Document 01/08/25 12:00 [id number] 01/08/25 12:10 01/08/25 12:00 NIH Stroke Scale [NIHSS] A score of 0 is normal or asymptomatic . Total possible score is [...] 0 Query Text:A score of 0 is normal or asymptomatic. Total possible score is 42 [...] Cosigner Signature (if applicable): CC: ~ Signed [facility]07-07-2025 Progress note Author Carla Barksdale [facility] Note Date/Time January 08, 2025 1:58a m [facility] Medical Records Department [address] [facility] [place] [address] Progress Note - Hospitalist 01/07/25 2335 MR#: [id number] Acct: [id number] Name: BERTA SANCHES SCOTTIE Rep #:[id number] : 1945 79 From: Carla Rashid DO PCP: JARROD Cantu Status:ADM I N Location: [place] [address] Hospitalist Note Stroke alert was called overhead [...] in 24 hours as per neurology recommendations. OUTSIDE PLANT TECHNICIAN was updated with plan. [facility] Imaging Services [address] [place] [address] STROKE Brain/Head without Cont MR#: [id number] Acct: [id number] Name: BERTA SANCHES Rep #: [id number] : 1945 F 79 From: Jonathan [place] DO PCP: JARROD Cantu Status: ADM IN Study: STROKE Brain/Head without Cont Date of Exam: 01/07/25 Exam# [id number] Ordering Dr: Carla Ha DO PROCEDURE: STROKE [...] to call report. 11:17 p.m. Reading Location: [facility] CC: JARROD Collazo; Dr. Carla Ha DO ~ 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: Signed ----- [facility] Imaging Services [address] [address] STROKE CTA Head AND Neck W/Con MR#: [id number] Acct: [id number] Name: BERTA SANCHES Rep #: [id number] : 1945 F 79 From: Jonathan [place] DO PCP: JARROD Cantu Status: ADM IN Study: STROKE CTA Head AND Neck W/Con Date of Exam: 01/07/25 Exam# [id number] Ordering Dr: Carla Ha DO PROCEDURE: STROKE [...] nurse Melida at 12:05 a.m. Reading Location: [facility] CC: BRAND STRATEGY MANAGER-C Deysi Collazo; Dr. Carla Ha DO ~ 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: Signed 01/08/25 0158 <Electronically signed by Carla Ha DO> Cosigner Signature (if applicable): CC: ~ Signed [facility] Work Phone: 1(766) 277-698707-07-2025 Progress note [facility] Medical Records Department [address] [place] [address] Progress Note - Hospitalist 01/07/25 6115 MR#: [id number] Acct: [id number] Name: BERTA SANCHES Rep #:[id number] : 1945 79 From: Carla Rashid DO PCP: JARROD Cantu Status:ADM I N Location: [place] [id number] Hospitalist Note Stroke alert was called overhead [...] in 24 hours as per neurology recommendations. OUTSIDE PLANT TECHNICIAN was updated with plan. [facility] Imaging Services [address] [place] [address] STROKE Brain/Head without Cont MR#: [id number] Acct: [id number] Name: BERTA SANCHES Rep #: [id number] : 1945 F 79 From: Jonathan [place] DO PCP: JARROD Cantu Status: ADM IN Study: STROKE Brain/Head without Cont Date of Exam: 01/07/25 Exam# [id number] Ordering Dr: Carla Ha DO PROCEDURE: STROKE [...] to call report. 11:17 p.m. Reading Location: [facility] CC: HOWARDC Deysi Collazo; Dr. Carla Ha DO ~ 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: Signed [facility] Imaging Services [address] [address] STROKE CTA Head AND Neck W/Con MR#: [id number] Acct: [id number] Name: BERTA SANCHES SCOTTIE Rep #: [id number] : 1945 F 79 From: Jonathan [place] DO PCP: JARROD Cantu Status: ADM IN Study: STROKE CTA Head AND Neck W/Con Date of Exam: 01/07/25 Exam# [id number] Ordering Dr: Carla Ha DO PROCEDURE: STROKE [...] charge nurse Melida at12:05 a.m. Reading Location: [facility] CC: JARROD Collazo; Dr. Carla Ha DO ~ 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: Signed 01/08/25 0158 Cosigner Signature (if applicable): CC: ~ Signed [facility]07-07-2025 Radiology Diagnostic study note [facility] Imaging Services [address] [place] [id number] STROKE CTA Head AND Neck W/Con MR#: [id number] Acct: [id number] Name: BERTA SANCHES Rep #: [id number] : 1945 F 79 From: Pet er Humberto CURRY PCP: JARROD Cantu Status: ADM I N Study:STROKE CTA Head AND Neck W/Con Date of Exam: 01/07/25 Exam# [id number] Ordering Dr: Carla Rayo DO PROCEDURE: STROKE [...] charge nurse Melida at12:05 a.m. Reading Location: [facility] CC: JARROD Collazo; DO Varsha Roldan 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: Signed [facility]07-06-2025 Radiology Diagnostic study note [facility] Imaging Services [address] [place], [place] [id number] STROKE Brain/Head without Cont MR#: [id number] Acct: [id number] Name: BERTA SANCHES Rep #: [id number] : 1945 F 79 From: Pet er Peer PCP: JARROD Cantu Status: ADM I N Study:STROKE Brain/Head without Cont Date of Exam: 01/07/25 Exam# [id number] Ordering Dr: Carla Rayo DO PROCEDURE: STROKE [...] to call report. 11:17 p.m. Reading Location: [facility] CC: BRAND STRATEGY MANAGER-Ivett Collazo; Dr. Carla Ha DO ~ 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: Signed [facility]07-06-2025 Discharge summary Author Sheree Simmons [facility] Note Date/Time January 07, 2025 5:04p m [facility] Medical Records Department [address] [place] [address] Emergency Department Summary 01/07/25 MR#: [id number] Acct: [id number] Name: TAMERA SANCHESRA RUBIN Rep #:[id number] : 1945 79 From: Sheree KING PCP: JARROD Cantu Status:ADM I N Location: [address] [facility] <FERNANDO Uriostegui - Last Filed: 01/07/25 [...] in September 2023 she had surgery in [place] for some type of intra-abdominal artery blockage and was started on Plavix in addition to her baseline aspirin 81 mg. She states she was also having issues with her congestive heart failure. She came home at the end of October and has been taking her normal Lasix 40 mg twice daily and spironolactone 12.5 mg twice daily without improvement. She saw her [facility] clinic rn medicare Dr. Burdick on January 01. He changed [...] is from allergies but no significant cough. [facility] <FERNANDO Uriostegui - Last Filed: 01/07/25 16:48> [facility] Medical History (Updated 01/07/25 @ 17:04 [...] Oxygen Delivery Method Room Air Room Air [facility] <FERNANDO Uriostegui - Last Filed: 01/07/25 16:48> [facility] Narrative Medical decision making narrative: History [...] dose of Lasix as instructed by her rn medicare without improvement. She is awake alertno distress. [...] heart failure. 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 She was hospitalized for 23days. She is followed by rn medicare through the [facility]. She statesshe has difficulty contacting him and seeing him. She was offered option to follow-up with rn medicare in [place]. Patient denies fever, chills night sweats. Patient [...] % (Auto) 59.8 Lymph % (Auto) 24.2 Sebastian % (Auto) 12.9 H Eos % (Auto) [...] Hr 68 H* [place] [address] H Radiography Diagnostic Testing: Clinical Impression(s) from Imaging Studies Chest X-Ray 01/07/25 13:19 IMPRESSION: Findings consistent with mild congestive heart failure. Reading Location: [id number] ED attending interpretation of 2 view chest x-ray shows mild congestive heart failure. EKG Initial EKG: Attestation: I personally reviewed and interpreted this EKG as follows: Interpretation: No Acute Injury Pattern and Atrial Fibrillation Comments: Atrial fibrillation at 77 bpm, occasional ventricular paced complexes Left anterior fascicular block Nonspecific ST changes, no STEMI <Dr. Luis Armando Harry MD - Last Filed: 01/07/25 17:04> [facility] MDM Narrative Medical decision making narrative: History gathered from: Patient and spouse 79-year-old female presents with several weeks of dyspnea and bilateral lower extremity edema. She has had tight swelling from both thighs and down for several weeks. Over the last 5 days she has been taking an increased dose of Lasix as instructed by her rn medicare without improvement. She is awake alertno distress. [...] heart failure. 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 She was hospitalized for 23days. She is followed by rn medicare through the [facility]. She statesshe has difficulty contacting him and seeing him. She was offered option to follow-up with rn medicare in [place]. Patient denies fever, chills night sweats. Patient [...] % (Auto) 59.8 Lymph % (Auto) 24.2 Sebastian % (Auto) 12.9 H Eos % (Auto) [...] Hr 68 H* [place] [address] H Radiography Diagnostic Testing: Clinical Impression(s) from Imaging Studies Chest X-Ray 01/07/25 13:19 IMPRESSION: Findings consistent with mild congestive heart failure. Reading Location: [id number] Management Discussion w/another healthcare provider: Hospitalist (Documented [...] your Primary Care Provider. Call [facility] ([phone]) or report to the closest Emergency Room. Call 911 if necessary. 01/07/25 1648 <Electronically signed by Sheree KING> Cosigner Signature (if applicable): 01/07/25 1704 <Electronically signed by Romel UGARTE> CC: TALI-C Deysi Collazo ~ Signed [facility] Work Phone: 1(973) 836-276907-06-2025 History and physical note Author Radha Heller [facility] Note Date/Time January 07, 2025 4:35p m [facility] Medical Records Department [address] [place] [address] H&P Exam - Hospitalist 01/07/25 1629 MR#: [id number] Acct: [id number] Name: BERTA SANCHES Rep #:[id number] : [...] post Watchman device, congestive heart failure presented [facility] ED 01/07/2025 with several weeks of shortness of breath and bilateral lower extremity edema. Reportedly in September 2023 she had surgery in [place] for some kind of intra-abdominal artery blockageand was placed on Plavix and aspirin and was having difficulties with her heart failure at that time. She came home at the end of October and has been taking herLasix 40 twice daily and spironolactone 12.5 mg twice daily without improvement. She recently followed with her [facility] rn medicare with increase in her Lasix by mouth [...] bowel or bladder changes. ROS otherwise negative [facility] Medical History Anxiety Brain aneurysm Bronchospasm [...] % (Auto) 59.8, Lymph % (Auto) 24.2, Sebastian % (Auto) 12.9 H, Eos % (Auto) [...] Sens 71 H*, NT pro BNP [place] [address] H 01/07/25 14:54: Troponin T Hi Sens 2 Hr 68 H* Imaging Radiology Impression Chest X-Ray 01/07/25 13:19 IMPRESSION: Findings consistent with mild congestive heart failure. Reading Location: [facility] Assessment & Plan Assessment/Plan (1) CHF [...] Heller MD Charges/Coding Visit Charges Inpatient E&M: 33767 Init Hosp L2 01/07/25 1635 <Electronically signed by Radha Heller MD> Cosigner Signature (if applicable): CC: JARROD Collazo; Dr. Radha Heller MD~ Signed [facility] Work Phone: 1(128) 140-532707-06-2025 Evaluation note* Diagnosis Onset Date Resolution Status Admit Date MONIQUE (acute kidney injury) acute January 07, 2025 4:29pm CHF exacerbation acute January 4:29pm Chronic kidney disease, stage 3b acu te January 07, 2025 4:29pm [facility] Work Phone: 1(930) 659-555507-06-2025 Evaluation note* Diagnosis Onset Date Resolution Status Admit Date Chronic kidney disease, stage 3b acu te January 07, 2025 4:29pm MONIQUE (acute kidney injury) inactive January 07, 2025 4:29pm CHF exacerbation inactive January 4:29pm [facility] Work Phone: 1(891) 136-212407-06-2025 Evaluation note* Diagnosis Onset Date Resolution Status Admit Date Chronic kidney disease, stag e 3b acute January 07, 2025 4 :29pm MONIQUE (acute kidney injury) inactive January 07, 2025 4:29pm CHF exacerbation inactive January 4:29pm Chronic renal failure (CRF), stage 3b acute February 05, 2025 8:53am [facility] Work Phone: 1([phone]) 800-307507-06-2025 Evaluation note* Diagnosis Onset Date Resolution Status [...] atrial fibrillation) chronic February 05, 2025 8:53am [facility] Work Phone: 1(672) 248-467607-06-2025 Evaluation note* Diagnosis Onset Date Resolution Status [...] closure device acute February 08, 2025 9:56am [facility] Work Phone: 1(335) 201-256807-06-2025 Evaluation note* Diagnosis Onset Date Resolution Status [...] March 012024 8:49am PAD (peripheral artery disease) 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 March 01, 2025 8:49am PAF (paroxysmal atrial fibrillation) chronic March 01 8:49am [facility] Work Phone: 1(336) 714-474607-06-2025 Evaluation note* Diagnosis Onset Date Resolution Status [...] acute 2024 8:53am H/O aortic valve replacement February 05, 2025 8:53am HTN (hypertension) chronic [...] foot with fat layer exposed acute March 08, 025 8:57am Ulcer of right foot with fat layer exposed acute March 08, 025 8:57am Ulcer of right lower extremity with fat layer exposed acute March 08, 025 8:57am PAD (peripheral artery disease) chronic March 08, 025 8:57am PAF (paroxysmal atrial fibrillation) chronic March 08, 2 025 8:57am Anemia noneactive March 13, 2025 1:46pm [facility] Work Phone: 1(229) 310-294207-06-2025 Evaluation note* Diagnosis Onset Date Resolution Status [...] atrial fibrillation) chronic March 15, 2025 11:00am [facility] Work Phone: 1([phone]) 304-211707-06-2025 Evaluation note* Diagnosis Onset Date Resolution Status [...] atrial fibrillation) chronic March 29, 2025 11:00am [facility] Work Phone: 1(806) 519-307007-06-2025 Evaluation note* Diagnosis Onset Date Resolution Status [...] (paroxysmal atrial fibrillation) chronic April 05 10:53am [facility] Work Phone: 1([phone]) [phone] Discharge summary [facility] Medical Records Department [address] [place] [id number] Emergency Department Summary 01/07/25 MR#: [id number] Acct: [id number] Name: BERTA SANCHES SCOTTIE Rep #:[id number] : 1945 79 From: Sheree KING PCP: JARROD Cantu Status:ADM I N Location: [address] History of Present Illness Chief Complaint: [...] in September 2023 she had surgery in [place] for some type of intra-abdominal artery blockage and was started on Plavix in addition to her baseline aspirin 81 mg. She states she was also having issues with her congestive heart failure. She came home atthe end of October and has been taking her normal Lasix 40 mg twice daily and spironolactone 12.5 mg t wice daily without improvement. She saw her [facility] clinic rn medicare Dr. Burdick on January 01. He changed [...] is from allergies but no significant cough. [facility] Medical History (Updated 01/07/25 @ 17:04 [...] dose of Lasix as instructed by her rn medicare without improvement. She is awake alertno distress. [...] heart failure. 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 She was hospitalized for 23days. She is followed by rn medicare through the [facility]. She statesshe has difficulty contacting him and seeing him. She was offered option to follow-up with rn medicare in [place]. Patient denies fever, chills night sweats. Patient [...] % (Auto) 59.8 Lymph % (Auto) 24.2 Sebastian % (Auto) 12.9 H Eos % (Auto) [...] Hr 68 H* [place] [address] H Radiography Diagnostic Testing: Clinical Impression(s) from Imaging Studies Chest X-Ray 01/07/25 13:19 IMPRESSION: Findings consistent with mild congestive heart failure. Reading Location: [id number] ED attending interpretation of 2 view chest [...] dose of Lasix as instructed by her rn medicare without improvement. She is awake alertno distress. [...] heart failure. 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 She was hospitalized for 23days. She is followed by rn medicare through the [facility]. She statesshe has difficulty contacting him and seeing him. She was offered option to follow-up with rn medicare in [place]. Patient denies fever, chills night sweats. Patient [...] % (Auto) 59.8 Lymph % (Auto) 24.2 Sebastian % (Auto) 12.9 H Eos % (Auto) [...] Hr 68 H* [place] [address] H Radiography Diagnostic Testing: Clinical Impression(s) from Imaging Studies Chest X-Ray 01/07/25 13:19 IMPRESSION: Findings consistent with mild congestive heart failure. Reading Location: [facility] Management Discussion w/another healthcare provider: Hospitalist [...] your Primary Care Provider. Call [facility] ([phone]) or report tothe closest Emergency Room. Call 911 if necessary. 01/07/25 1648 Cosigner Signature (if applicable): 01/07/25 1704 CC: BRAND STRATEGY MANAGER-C Deysi Collazo ~ Signed [facility]07-06-2025 History and physical note [facility] Medical Records Department [address] [place] [address] H&P Exam - Hospitalist 01/07/25 1629 MR#: [id number] Acct: [id number] Name: BERTA SANCHES Rep #:[id number] : [...] post Watchman device, [facility] with several weeks of shortness of breath and bilateral lower extremity edema. Reportedly in September 2023 she had surgery in [place] for some kind of intra-abdominal artery blockageand was placed on Plavix and aspirin and was having difficulties with her heart failure at that time. She came home at the end of October and has been taking herLasix 40 twice daily and spironolactone 12.5 mg twice daily without improvement. She recently followed with her [facility] rn medicare with increase in her Lasix by mouth but has not had improvement. Patient is having somewhat shortness of breath on exertion that she is having difficulty with her ADLs and notes her legs feel so tight and swollen that she has difficulty bending over tochange her close/completing ADLs. In the ED [id number], heart rate 78 with blood pressure 135/57, [...] bowel or bladder changes. ROS otherwise negative [facility] Medical History Anxiety Brain aneurysm Bronchospasm [...] % (Auto) 59.8, Lymph % (Auto) 24.2, Sebastian % (Auto) 12.9 H, Eos % (Auto) [...] Sens 71 H*, [place] [address] H 01/07/25 14:54: Troponin T Hi Sens 2 Hr 68 H* Imaging Radiology Impression Chest X-Ray 01/07/25 13:19 IMPRESSION: Findings consistent with mild congestive heart failure. Reading Location: [id number] Assessment & Plan Assessment/Plan (1) CHF exacerbation: [...] insulin #Hx SMA occlusion - Back in March, hospitalized for 24 days -Noted - Continue antiplatelet agents once med rec updated/home meds confirmed #Hx afib s/p watchman/AV replacement/pace maker - No longer on anticoagulation -Continue beta-yissel #DVT ppx: Heparin subcu Radha Heller MD Charges/Coding Visit Charges Inpatient E&M: 24681 Init Hosp L2 01/07/25 1635 Cosigner Signature (if applicable): CC: JARROD Collazo; Dr. Radha Heller MD~ Signed [facility]07-06-2025 Radiology Diagnostic study note [facility] Imaging Services [address] [place], [place] [id number] Chest PA and Lateral MR#: [id number] Acct: [id number] Name: BERTA SANCHES Rep #: [id number] : 1945 F 79 From: Nahum Trinidad MD PCP: JARROD Cantu Status: REG E R Study:Chest PA and Lateral Date of Exam: 01/07/25 Exam# [id number] Ordering Dr: Sheree Haynes PROCEDURE: CHEST PA [...] with mild congestive heart failure. 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 [facility] Work Phone: 1(401) 702-659107-06-2025 Discharge summary Author Sheree Simmons [facility] Note Date/Time January 07, 2025 5:04p m [facility] Medical Records Department [address] [place] [address] Emergency Department Summary 01/07/25 MR#: [id number] Acct: [id number] Name: BERTA SANCHES Rep #:[id number] : 1945 79 From: Sheree KING PCP: JARROD Cantu Status:ADM I N Location: [address] <FERNANDO Uriostegui - Last Filed: 01/07/25 [...] in September 2023 she had surgery in [place] for some type of intra-abdominal artery blockage and was started on Plavix in addition to her baseline aspirin 81 mg. She states she was also having issues with her congestive heart failure. She came home at the end of October and has been taking her normal Lasix 40 mg twice daily and spironolactone 12.5 mg twice daily without improvement. She saw her [facility] clinic rn medicare Dr. Burdick on January 01. He changed [...] <FERNANDO Uriostegui - Last Filed: 01/07/25 16:48> [facility] Medical History (Updated 01/07/25 @ 17:04 [...] Oxygen Delivery Method Room Air Room Air [facility] <FERNANDO Uriostegui - Last Filed: 01/07/25 16:48> [facility] Narrative Medical decision making narrative: History [...] dose of Lasix as instructed by her rn medicare without improvement. She is awake alertno distress. [...] heart failure. 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 She was hospitalized for 23days. She is followed by rn medicare through the [facility]. She statesshe has difficulty contacting him and seeing him. She was offered option to follow-up with rn medicare in [place]. Patient denies fever, chills night sweats. Patient [...] in some time. Her last echo was 2018 and her EF at that time was [...] % (Auto) 59.8 Lymph % (Auto) 24.2 Sebastian % (Auto) 12.9 H Eos % (Auto) [...] Hr 68 H* [place] [address] H Radiography Diagnostic Testing: Clinical Impression(s) from Imaging Studies Chest X-Ray 01/07/25 13:19 IMPRESSION: Findings consistent with mild congestive heart failure. Reading Location: [facility] ED attending interpretation of 2 view chest [...] dose of Lasix as instructed by her rn medicare without improvement. She is awake alertno distress. [...] heart failure. 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 She was hospitalized for 23days. She is followed by rn medicare through the [facility]. She statesshe has difficulty contacting him and seeing him. She was offered option to follow-up with rn medicare in [place]. Patient denies fever, chills night sweats. Patient [...] % (Auto) 59.8 Lymph % (Auto) 24.2 Sebastian % (Auto) 12.9 H Eos % (Auto) [...] Hr 68 H* [place] [address] H Radiography Diagnostic Testing: Clinical Impression(s) from Imaging Studies Chest X-Ray 01/07/25 13:19 IMPRESSION: Findings consistent with mild congestive heart failure. Reading Location: [id number] Management Discussion w/another healthcare provider: Hospitalist (Documented [...] your Primary Care Provider. Call [facility] ([phone]) or report to the closest Emergency Room. Call 911 if necessary. 01/07/25 1648 <Electronically signed by Sheree KING> Cosigner Signature (if applicable): 01/07/25 1704 <Electronically signed by Romel UGARTE> CC: BRAND STRATEGY MANAGER-C Deysi Collazo ~ Signed [facility] Work Phone: 1(476) 916-468306-30-2025 Instructions* Patient Instructions* Carla Burdick MD - 01/01/2025 11:12 AM EDT I have written you for lasix 40 mg pills Take two in the morning (80 mg) and one (40 mg) in the afternoon for this week Wed-Wednesday Repeat blood work next wednesday documented in this encounterSy[facility]06-[facility] History of Present illness Narrative* Carla Burdick MD - 01/01/2025 11:00 AM EDT Images from the original note were not included. [facility] SECTION OF REGIONAL CARDIOLOGY Cardiology ([facility]) [address] [facility] [address] OUTPATIENT VISIT DATE 01/01/2025 PRIMARY CARE PHYSICIAN: Doreen Le [address] [place] [address] HISTORY OF PRESENT ILLNESS: Ms. Sanches is a 79 year old woman with a history of remote aortic valve replacement with homograft in 1996 and possible repair of the ascending aorta, chronic diastolic congestive heart failure, hypertension, dyslipidemia, atrial fibrillation with history of pulmonary vein isolation procedures, pacemaker placement and watchman procedure who presents for follow-up. Patient was admitted to [facility]. She was discharged after 2 days. 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 Lua PACEMAKER 10/2019 PART. HYSTERECTOMY W/WO RMVL OVARIES/TUBES 1974 h/o cervical cancer ovaries remain PAST SURGICAL HISTORY OF 1996 Aortic valve repair, Dr. Apodaca PAST SURGICAL HISTORY OF 2001 [address] Beltrán, [facility] PAST SURGICAL HISTORY OF 2015 clipping [...] 84 Resp 18 Ht 157.5 cm (5' 2) Wt 67.4 kg (148 lb 9.6 oz) [...] !SVR !1650dyn-sec/cm5 ! + + + !SVRI !7090kjd-xwd-o^2/cm5 ! + + + !PVR !544dyn-sec/cm5 ! + + + !PVRI !464tlm-drh-q^2/cm5 ! + + + !Total systemic resistance!2097dyn-sec/cm5, 7871lob-qdu-t^2/cm5! Echocardiogram David Melendez 10/03/2024: 1. Left ventricle: [...] or suggestive of Atrial Fibrillation * AT/AF Deshler: 67.8% * Total number of events: 2774 Tachycardia: AF w/RVR * Stored EGMs listed as NSVT AND SVT are consistent with or suggestive of Atrial Fibrillation with Rapid Ventricular Response * AT/AF Deshler: 67.8% * Total episodes: 9 * Longest [...] testing. She underwent SMA stent placement at [facility] September 2024. She has been treated for [...] daily. Carla Burdick MD documented in this encounterSycamore [facility] Center06-30-2025 NoteHNO ID: [id number] Author: CARLA BURDICK MD Service: ? Author Type: Physician Type: Progress Notes Filed: 01/01/2025 12:27 Note Text: [facility] SECTION OF REGIONAL CARDIOLOGY Cardiology ([facility]) [address] [facility] [address] OUTPATIENT VISIT DATE 01/01/2025 PRIMARY CARE PHYSICIAN: Doreen Le [address] [place] [address] HISTORY OF PRESENT ILLNESS: Ms. Sanches is a 79 year old woman with a history of remote aortic valve replacement with homograft in 1996 and possible repair of the ascending aorta, chronic diastolic congestive heart failure, hypertension, dyslipidemia, atrial fibrillation with history of pulmonary vein isolation procedures, pacemaker placement and watchman procedure who presents for follow-up. Patient was admitted to [facility]. She was discharged after 2 days. 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 Lua PACEMAKER 10/2019 PART. HYSTERECTOMY W/WO RMVL OVARIES/TUBES 1974 h/o cervical cancer ovaries remain PAST SURGICAL HISTORY OF 1996 Aortic valve repair, Dr. Apodaca PAST SURGICAL HISTORY OF 2001 2001 and 2002 ear surgery [facility] [place] PAST SURGICAL HISTORY OF 2016 clipping and [...] mg iron) tabl (more content not included)... [facility]06-24-2025 Telephone encounter Note* Telephone Encounter - [...] answered at this time. Albin Gu APRN.CNP [facility] Miscellaneous Notes* Telephone Encounter - Albin Gu [...] time. Albin Gu APRN.CNP documented in this encounterSycamore Medical Center06-18-2025 NoteHNO ID: [id number] Author: LARS SILVA, DO Service: ? Author Type: Physician Type: Progress Notes Filed: 12/20/2024 17:56 Note Text: [facility] [place] DEPARTMENT OF VASCULAR SURGERY OUTPATIENT VISIT DATE [...] clinic. She had a stent placed in [place] in September. She was recently admitted to [place] for anemia. She has noted increased swelling. 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 Lua PACEMAKER 10/2019 PART. HYSTERECTOMY W/WO RMVL OVARIES/TUBES 1974 h/o cervical cancer ovaries remain PAST SURGICAL HISTORY OF 1996 Aortic valve repair, Dr. Apodaca PAST SURGICAL HISTORY OF 2001 [address] Beltrán, [facility] PAST SURGICAL HISTORY OF 2016 clipping [...] procedure on 01/12/22, treate (more content not included)...[facility]06-18-2025 History of Present illness Narrative* Lars Silva, - 12/20/2024 8:53 AM EDT Images from the original note were not included. [facility] [place] DEPARTMENT OF VASCULAR SURGERY OUTPATIENT VISIT DATE [...] clinic. She had a stent placed in [place] in September. She was recently admitted to [place] for anemia. She has noted increased swelling. 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 Lua PACEMAKER 10/2019 PART. HYSTERECTOMY W/WO RMVL OVARIES/TUBES 1973 h/o cervical cancer ovaries remain PAST SURGICAL HISTORY OF 1996 Aortic valve repair, Dr. Apodaca PAST SURGICAL HISTORY OF 2001 [address] Beltrán, [facility] PAST SURGICAL HISTORY OF 2016 clipping and coil for brain aneurysm SOCIAL HISTORY Social History Tobacco Use Smoking status: Former Current packs/day: 0.00 Average packs/day: 0.3 packs/day for 2.0 years (0.5 ttl pk-yrs) Types: Cigarettes Start date: 1965 Quit date: 1968 Years since quittin.5 Smokeless [...] 2024 TIME: 8:53 AM documented in this encounterSycamore Medical Center06-17-2025 NoteHNO ID: [id number] Author: GWEN VALENTINE RN Service: ? Author [...] swelling noted. Pt tolerated well. [id number] History of Present illness Narrative* Gwen Valentine, RN - 12/19/2024 11:43 AM EDT Pt [...] tolerated well. * Albin Gu APRN.CNP - 12/19/2024 11:00 AM EDT Images from the original note were not included. [facility] [place] [facility] Heart Failure Clinic OUTPATIENT VISIT DATE [...] overloaded and was worried about traveling[place] to [place] in a few days. Discussed with her taking lasix as it was prescribed. As her spironolactone was stopped, did advise patient restart this at 25 mg once a day for four days only. She was instructed to call office in a week to review symptoms. On 10/15, patient presented back to [facility] for gastrointestinal bleed. She had a colonoscopy [...] and entresto. The patient wished to leave [place] so she could return to [place]. Cardiology and Pulmonary agreed with discharge. Patient [...] in her upper legs, describing them as very swollen and very warm. She notes that this swelling has been present since her recent hospital discharge and fluctuates, sometimes causing her upper legs to feel real loose. She also experiences numbness in her hands and feet. She denies any chest pain, chest heaviness, dizziness, or lightheadedness. She experiences dyspnea both at rest and with minimal exertion, such as walking from the car to theinic. 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 Lua PACEMAKER 10/2019 PART. HYSTERECTOMY W/WO RMVL OVARIES/TUBES 1973 h/o cervical cancer ovaries remain PAST SURGICAL HISTORY OF 1996 Aortic valve repair, Dr. Apodaca PAST SURGICAL HISTORY OF 2001 [address] and [address] Beltrán, [facility] PAST SURGICAL HISTORY OF 2015 clipping [...] impression and interpretation as noted. Federico Hammonds [id number] DEVICE CHECK 10/04/2024: Tachycardia: AF * Stored EGMs are consistent with or suggestive of Atrial Fibrillation * AT/AF Deshler: 67.8% * Total number of events: 2774 Tachycardia: AF w/RVR * Stored EGMs listed as NSVT AND SVT are consistent with or suggestive of Atrial Fibrillation with Rapid Ventricular Response * AT/AF Deshler: 67.8% * Total episodes: 9 * Longest episode: 28 SECS * Fastest episode:207 BPM Remote Device Evaluation [employer] [facility] * Device type: DUAL LEAD PACEMAKER * Presenting Rhythm: AF/ VS * Battery Status: Battery is at OK, 9.83 yrs . * Atrial Arrhythmias: There have been 12 atrial detections. Anticoagulants listed: _LAAC____ * Ventricular Arrhythmias: There have been __0 TRUE_ ventricular detections. * Lead Measurements: Capture thresholds, sensing, and lead impedances are appropriate. * Other Diagnostics: AP 64.4 JOB SERVICE CONSULTANT 9.3% Tachycardia: AF * Stored EGMs are consistent with or suggestive of Atrial Fibrillation * AT/AF Deshler: 8.2% (THIS PERCENT IS INACCCURATE,LIKELY CLOSER TO [...] Discussed red flags and when to call MD/BRAND STRATEGY MANAGER or [facility] ED. Medications reconciled at end of visit: yes I spent 40 minutes in this visit, with more than 50% of the time devoted to patient counseling. Recording using [employer] software for draft documentation was discussed with patient/authorized specialty sales representative. All questions were welcome and answered. Patient/authorized specialty sales representative agreed toproceed. SIGNATURE: Albin Gu APRN.CNP PATIENT NAME: Berta Sanches DATE: December 19, 2024 TIME: 1100 documented in this encounterSycamore Medical Center06-17-2025 NoteHNO ID: [id number] Author: ALBIN GU APRN.CNP Service: ? Author Type: Nurse Practitioner Type: Progress Notes Filed: 12/19/2024 11:45 Note Text: [facility] [place] [facility] Heart Failure Clinic OUTPATIENT VISIT DATE December 18, 2024 OUTPATIENT VISIT TYPE ESTABLISHED PRIMARY CARE PHYSICIAN: Desyi Collazo APRN.CNP CHIEF COMPLAINT: No chief complaint [...] and was worried about traveling home to [place] in a few days. Discussed with her taking lasix as it was prescribed. As her spironolactone was stopped, did advise patient restart this at 25 mg once a day for four days only. She was instructed to call office in a week to review symptoms. On 10/15, patient presented back to [facility] for gastrointestinal bleed. She had a colonoscopy [...] and entresto. The patient wished to leave [place] so she could return to [place]. Cardiology and Pulmonary agreed with discharge. Patient [...] in her upper legs, describing them as very swollen and very warm. She notes that this swelling has been present since her recent hospital discharge and fluctuates, sometimes causing her upper legs to feel real loose. She also experiences numbness in her hands [...] sodium intake (more content not included)...[facility] [id number] Instructions* Patient Instructions* Albin Gu APRN.BRANCH LEAD - 12/19/2024 10:59 AM EDT 40 mg [...] or concern, you can call me at [phone]. documented in this encounterSycamore Medical Center06-11-2025 Telephone encounter Note * Telephone Encounter - Alex Gonzalez - 12/13/2024 9:28 AM EDT Transitional Care Management (TCM) [facility] Monitoring Program Provider Action / FYI: N/A SUMMARY: Outreach type: INITIAL OUTREACH Discharge Network Status: In-Network Discharge Source of Patient: [facility] TCM Discharge Report Patient discharged from [facility] on December 12. Admitted for Acute on chronic diastolic CHF (congestive heart failure) (HCC). Contact made with patient: No - next outreach attempt will be on next business day. Alex Betancourt December 13, 2024 9:35 AM [facility]06-11-[facility] Miscellaneous Notes* Telephone Encounter - Alex Gonzalez - 12/13/2024 9:28 AM EDT Transitional Care Management (TCM) [facility] Monitoring Program Provider Action / FYI: N/A SUMMARY: Outreach type: INITIAL OUTREACH Discharge Network Status: In-Network Discharge Source of Patient: [facility] TCM Discharge Report Patient discharged from [facility] on December 12. Admitted for Acute on chronic diastolic CHF (congestive heart failure) (HCC). Contact made with patient: No - next outreach attempt will be on next business day. Alex Betancourt December 13, 2024 9:35 AM documented in this encounterSycamore Medical Center06-10-2025 NoteHNO ID: [id number] Author: STACIE LONDONO RN Service: Care Management [...] Physician Primary Care Physician Name/Phone: Deysi Collazo APRN.BRANCH LEAD [phone] Additional Information: na Discharge order written for today, patient discharged home with no services. Family will transport. SIGNATURE: Stacie Londono RN PATIENT NAME: Berta Sanches DATE: December 12, 2024 TIME: 9:13 AMSelect [facility] Rehabilitation [id number] Telephone encounter Note* Telephone Encounter - Deysi Collazo APRN.CNP - 12/11/2024 1:06 PM EDT Noted. Deysi Collazo APRN.JASPREET [facility]06-09-[facility]25 Miscellaneous Notes* Telephone Encounter - Deysi Collazo APRN.CNP - 12/11/2024 1:06 PM EDT Noted. Deysi Collazo APRN.CNP * Telephone Encounter - Sigifredo Rivera LPN - 12/11/2024 11:15 AM EDT Pt re admitted to [facility]. Sigifredo Rivera LPN * Telephone Encounter - Marilyn Cesar - 12/11/2024 11:05 AM EDT Patient called to cancel hospital follow up due to re admission yesterday 12/10/2024 documented in this encounterSycamore Medical Center06-09-2025 NoteHNO ID: [id number] Author: MAXIMINO JENNINGS RN Service: Care Management Author Type: Registered Nurse Type: Care Mgt Initial Assessment Filed: 12/11/2024 11:51 Note Text: CARE MANAGEMENT: ASSESSMENT AND DISCHARGE PLAN SERVICE DATE: December 11, 2024 SERVICE TIME: 11:50 AM PCP: Deysi Collazo APRN.CNP Primary Contact: Extended Emergency Contact Information Primary Emergency Contact: Natanael Sanches Address: [address] [place] [id number] [place] [address] OF [facility] Mobile Relation: Spouse Admission Status: Inpatient Insurance Provider: [employer] MED[employer]ARE PPO Discharge Planning requested by: Per Department Practice Potential Transition Plans Home Advance Directives Current Advance Directive: Living Will, Health Care Power of Child Welfare Manager In Chart: No Current Living Arrangements [...] None Discharge Planning Patient Goal(s): General wellness [place] of Choice Explained: [place] of Choice Given: No Reason Not Given: No placements necessary Are you interested in bedside delivery of your medications? No, Brayden Cruz Discharge Planning Participant(s): Patient Patient/Family [...] assessment. Patient from home with her , I-SENIOR TAX SPECIALIST, drives minimally. to transport upon DC. CM assigned will continue to follow for DC planning needs. SIGNATURE: Maximino Jennings RN PATIENT NAME: Berta Sanches DATE: December 11, 2024 TIME: 11:50 [id number] NoteHNO ID: [id number] Author: JUAN DIEGO KNOWLES MD Service: Hospital Medicine Author Type: Physician Type: Progress Notes Filed: 12/11/2024 11:50 Note Text: HOSPITAL MEDICINE PROGRESS NOTE History: SOB better. 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 Patient presenting with [...] Diego Knowles MD DATE: 12/11/2024 TIME: 11:47 [facility] [id number] Telephone encounter Note* Telephone Encounter - Sigifredo Rivera LPN - 12/11/2024 11:15 AM EDT Pt re admitted to [facility]. Sigifredo Rivera LPN [facility]06-[facility] Telephone encounter Note* Telephone Encounter - Marilyn Cesar - 12/11/2024 11:05 AM EDT Patient called to cancel hospital follow up due to re admission yesterday 12/10/2024 [facility]05-[facility] History of Present illness Narrative* Carla Burdick MD - 11/20/2024 8:00 AM EDT Images from the original note were not included. [facility] SECTION OF REGIONAL CARDIOLOGY Cardiology ([facility]) [address] [facility] [id number] OUTPATIENT VISIT DATE PRIMARY CARE PHYSICIAN: Doreen Le [address] [place] [address] HISTORY OF PRESENT ILLNESS: Ms. 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 Lua PACEMAKER 10/2019 PART. HYSTERECTOMY W/WO RMVL OVARIES/TUBES 1973 h/o cervical cancer ovaries remain PAST SURGICAL HISTORY OF 1996 Aortic valve repair, Dr. Apodaca PAST SURGICAL HISTORY OF 2001 [address] Beltrán, [facility] PAST SURGICAL HISTORY OF 2015 clipping [...] Pulse 84 Resp12 Ht 157.5 cm (5' 2) Wt 65.2 kg (143 lb 12.8 oz) [...] MEDICINE TESTING: Right Heart Catheterization [facility] 10/24/2024: Cardiac output (Qs) !4.1L/min ! [...] !SVR !1650dyn-sec/cm5 ! + + + !SVRI !2617yeu-ddm-m^2/cm5 ! + + + !PVR !544dyn-sec/cm5 ! + + + !PVRI !277mfl-kve-y^2/cm5 ! + + + !Total systemic resistance!2097dyn-sec/cm5, 3455jxc-wvo-f^2/cm5! Echocardiogram [facility] 10/03/2024: 1. Left ventricle: The cavity [...] or suggestive of Atrial Fibrillation * AT/AF Deshler: 67.8% * Total number of events: 2774 Tachycardia: AF w/RVR * Stored EGMs listed as NSVT AND SVT are consistent with or suggestive of Atrial Fibrillation with Rapid Ventricular Response * AT/AF Deshler: 67.8% * Total episodes: 9 * Longest [...] testing. She underwent SMA stent placement at [facility] September 2024. She has been treated for [...] TABLET Carla Burdick MD documented in this encounterSycamore Medical Center05-19-2025 NoteHNO ID: [id number] Author: CARLA BURDICK MD Service: ? Author Type: Physician Type: Progress Notes Filed: 11/20/2024 08:50 Note Text: [facility] SECTION OF REGIONAL CARDIOLOGY Cardiology ([facility]) [address] [facility] [id number] OUTPATIENT VISIT DATE PRIMARY CARE PHYSICIAN: Doreen Le [address] [place] [id number] HISTORY OF PRESENT ILLNESS: Ms. 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 Lua PACEMAKER 10/2019 PART. HYSTERECTOMY W/WO RMVL OVARIES/TUBES 1974 h/o cervical cancer ovaries remain PAST SURGICAL HISTORY OF 1996 Aortic valve repair, Dr. Apodaca PAST SURGICAL HISTORY OF 2001 [address] Beltrán, [facility] PAST SURGICAL HISTORY OF 2015 clipping [...] tablet by mouth t (more content not included)...[facility]05-14-2025 Telephone encounter Note* Telephone Encounter - Mckenzie Rodriguez MA - 11/15/2024 3:39 PM EDT Scheduled. Mckenzie Rodriguez MA [facility]05-14-2025 Miscellaneous Notes* Telephone Encounter - Mckenzie Rodriguez [...] metabolic panel and BNP. documented in this encounterSycamore Medical Center05-14-2025 Telephone encounter Note * Telephone Encounter - [...] repeat a basic metabolic panel and BNP. [facility]05-05-2025 Instructions* Patient Instructions* Carla Burdick MD - 11/06/2024 3:33 PM EDT We are changing the Furosemide to Torsemide 20 mg two times per day Stop taking the Losartan documented in this encounterSycamore Medical Center05-05-2025 History of Present illness Narrative* Carla Burdick MD - 11/06/2024 2:40 PM EDT Images from the original note were not included. [facility] SECTION OF REGIONAL CARDIOLOGY Cardiology ([facility]) [address] [facility] [id number] OUTPATIENT VISIT DATE 11/06/2024 PRIMARY CARE PHYSICIAN: Doreen Le [address] [place] [address] HISTORY OF PRESENT ILLNESS: Ms. Sanches is [...] admitted to the hospital while vacationing in [place]. She underwent SMA stent placement. This was followed by a long admission for decompensated congestive heart failure in the setting of the renal insufficiency. 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 Lua PACEMAKER 10/2019 PART. HYSTERECTOMY W/WO RMVL OVARIES/TUBES 1974 h/o cervical cancer ovaries remain PAST SURGICAL HISTORY OF 1996 Aortic valve repair, Dr. Apodaca PAST SURGICAL HISTORY OF 2001 [address] Beltrán, [facility] PAST SURGICAL HISTORY OF 2016 clipping [...] 68 Resp 12 Ht 157.5 cm (5' 2) Wt 68.9 kg (152 lb) SpO2 100% [...] MEDICINE TESTING: Right Heart Catheterization [facility] 10/24/2024: Cardiac output (Qs) !4.1L/min ! [...] !SVR !1650dyn-sec/cm5 ! + + + !SVRI !9578knp-bzt-k^2/cm5 ! + + + !PVR !544dyn-sec/cm5 ! + + + !PVRI !964pmb-uib-l^2/cm5 ! + + + !Total systemic resistance!2097dyn-sec/cm5, 1216smb-zrb-p^2/cm5! Echocardiogram [facility] 10/03/2024: 1. Left ventricle: The cavity [...] or suggestive of Atrial Fibrillation * AT/AF Deshler: 67.8% * Total number of events: 2774 Tachycardia: AF w/RVR * Stored EGMs listed as NSVT AND SVT are consistent with or suggestive of Atrial Fibrillation with Rapid Ventricular Response * AT/AF Deshler: 67.8% * Total episodes: 9 * Longest [...] testing. She underwent SMA stent placement at [facility] September 2024. She has been treated for [...] I65.23 Carla Burdick MD documented in this encounterSycamore Medical Center05-05-2025 NoteHNO ID: [id number] Author: CARLA BURDICK MD Service: ? Author Type: Physician Type: Progress Notes Filed: 11/06/2024 17:01 Note Text: [facility] SECTION OF REGIONAL CARDIOLOGY Cardiology ([facility]) [address] [facility] [phone] OUTPATIENT VISIT DATE 11/06/2024 PRIMARY CARE PHYSICIAN: Doreen Le [address] [place] [address] HISTORY OF PRESENT ILLNESS: Ms. Sanches is [...] admitted to the hospital while vacationing in [place]. She underwent SMA stent placement. This was followed by a long admission for decompensated congestive heart failure in the setting of the renal insufficiency. Since returning from [place], she has had difficulties with weight gain [...] 07/20/2015 Cancer of cervix (HCC) Cervical cancer ([facility]) 1973 Chest pain 06/01/2015 negative work up with nuclar stress CHF (congestive heart failure) ([facility]) Cholesteatoma of right ear surgical removal Chronic mastoiditis of left side Chronic renal failure, stage 3b ([facility]) 04/15/2022 Diabetes (HCC) Diabetes (HCC) GERD (gastroesophageal 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 Lua PACEMAKER 10/2019 PART. HYSTERECTOMY W/WO RMVL OVARIES/TUBES 1973 h/o cervical cancer ovaries remain PAST SURGICAL HISTORY OF 1996 Aortic valve repair, Dr. Apodaca PAST SURGICAL HISTORY OF 2001 [address] Beltrán, [facility] PAST SURGICAL HISTORY OF 2015 clipping [...] Hypotension MEDICATIONS: clopidogrel (PLAVIX) (more content not included)...[facility] 11-03-2024 Telephone encounter Note* Telephone Encounter - Deysi Collazo APRN.CNP - 11/03/2024 4:29 PM EDT Looks like patient was seen today at heart failure clinic and had repeat labs. From notes, it lookslike patient continued to refuse ER. She has an appt w/ cardiology on Wednesday and is to repeat labs at that time. [facility] Miscellaneous Notes* Telephone Encounter - Deysi Collazo [...] declined going to the ER. stated the kidney doctor at [facility] said her levels are not life threatening. I reiterated that if left uncorrected patient could end up with permanent kidney damage. states It's the Bumex that's causing it. States patient is urinating frequently which indicates to them that patients kidneys are functioning. States patients weight is stable. 145 lbs this morning. They are seeing Dr. Burdick on Wednesday11/06/24. states he is also going to try and get patient in to the [facility] today for the IVF. He said [...] MA * Telephone Encounter - Shaye Domingo APRN.JASPREET - 10/31/2024 4:46 PM EDT Creatinine is not improved and likely will not improve at home. Need IVF and Laboratory monitoring.Patient was not d/c'd from [facility], she left AMA. MONIQUE can cause senior care damage and if uncorrected patient could end up with permanent kidney damage. We are not allowed to force patients to stay no matter how sick they are so the fact that she was allowed to leave is not an indication thather [...] proceed to ER immediately. documented in this encounterSycamore Medical Center05-02-2025 Telephone encounter Note * Telephone Encounter - [...] with plan of care. Albin Gu APRN.CNP [facility]05-02-2025 Miscellaneous Notes* Telephone Encounter - Albin Gu [...] care. Albin Gu APRN.CNP documented in this encounterSycamore Medical Center05-02-2025 History of Present illness Narrative* Gwen Valentine [...] no swelling noted. Pt tolerated well. * Alibn Gu APRN.CNP - 11/03/2024 9:00 AM EDT Images from the original note were not included. [facility] [place] [facility] Heart Failure Clinic OUTPATIENT VISIT DATE [...] overloaded and was worried about [place] to [place] in a few days. Discussed with her taking lasix as it was prescribed. As her spironolactone was stopped, did advise patient restart this at 25 mg once a day for four days only. She was instructed to call office in a week to review symptoms. On 10/15, patient presented back to [facility] for gastrointestinal bleed. She had a colonoscopy [...] and entresto. The patient wished to leave [place] so she could return to [place]. Cardiology and Pulmonary agreed with discharge. Today, the patient reports feeling okay. Since she was hospitalized in [place], she has not felt that well. Feels very tired. Denies shortness of breath. Was seen by her PCP on Wednesday who suggested patient be admitted due to significant worsening in kidney function however, the patient and husbanddeclined admission as she just returned home the day before. States she was started on bumex drip and then received oral bumex while in [place] and noted a worsening in kidney function. [...] chicken, asparagus and s alad. While in [place], she was very conscious about her diet. She weighed every day. She feels after thefirst hospitalization, she gained approx 20 lbs which she did call and discuss this with this HF UNDERWRITING SALES REPRESENTATIVE. Wearing lidocaine patch over site to right side of neck as she mentions having a temporary dialysisport in place during first hospitalization. This area was bothersome to her however, she does mention the discomfort is improving. Does not have a patient intake coordinator at this time. Can lay flat [...] morning meds 3. SSS (sick sinus syndrome) ([facility]) - ICD9: 427.81, ICD10: I49.5 -s/p PPM [...] (HCC) Pedro aneurysm of anterior communicating artery ([facility]) Dr. Aaron [facility] Bilateral carotid artery stenosis 11/26/2016 05/27/16 moderate 50-69% stenosis right and left Bilateral pneumonia 07/20/2015 Cancer of cervix (HCC) Cervical cancer (HCC) 1973 Chest pain 06/01/2015 negative work up with nuclar stress CHF (congestive heart failure) ([facility]) Cholesteatoma of right ear surgical removal Chronic mastoiditis of left side Chronic renal failure, stage 3b (HCC) 04/15/2022 Diabetes ([facility]) Diabetes (HCC) GERD (gastroesophageal reflux disease) H/O: 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 Lua PACEMAKER 10/2019 PART. HYSTERECTOMY W/WO RMVL OVARIES/TUBES 1974 h/o cervical cancer ovaries remain PAST SURGICAL HISTORY OF 1996 Aortic valve repair, Dr. Apodaca PAST SURGICAL HISTORY OF 2001 [address] Beltrán, [facility] PAST SURGICAL HISTORY OF 2015 clipping [...] impression and interpretation as noted. Federico Hammonds [id number]:22:04 I have personally reviewed the Laboratory Testing and Echocardiogram. COUNSELING: We discussed the following non-pharmacological measures during this visit: Smoking and alcohol abstinence/cessation, if applicable Dietary and medication compliance Monitoring daily weights and blood pressures Exercise regimen When to call our office Heart Failure Education Booklet: Previously given. Discussed red flags and when to call MD/BRAND STRATEGY MANAGER or [facility]. Medications reconciled at end of visit: yes I spent 60 minutes in this visit, with more than 50% of the time devoted to patient counseling. SIGNATURE: Albin Gu APRN.CNP PATIENT NAME: Berta Sanches DATE: November 03, 2024 TIME: 0855 documented in this encounterSycamore Medical Center05-02-2025 NoteHNO ID: [id number] Author: GWEN VALENTINE RN Service: ? Author [...] no swelling noted. Pt tolerated well.[facility] [id number] NoteHNO ID: [id number] Author: ALBIN GU APRN.CNP Service: ? Author Type: Nurse Practitioner Type: Progress Notes Filed: 11/03/2024 10:28 Note Text: [facility] [place] [facility] Heart Failure Clinic OUTPATIENT VISIT DATE [...] and was worried about traveling home to [place] in a few days. Discussed with her taking lasix as it was prescribed. As her spironolactone was stopped, did advise patient restart this at 25 mg once a day for four days only. She was instructed to call office in a week to review symptoms. On 10/15, patient presented back to [facility] for gastrointestinal bleed. She had a colonoscopy [...] and entresto. The patient wished to leave [place] so she could return to [place]. Cardiology and Pulmonary agreed with discharge. Today, the patient reports feeling okay. Since she was hospitalized in [place], she has not felt that well. Feels very tired. Denies shortness of breath. Was seen by her PCP on Wednesday who suggested patient be admitted due to significant worsening in kidney function however, the patient and declined admission as she just returned home the day before. States she was started on bumex drip and then received oral bumex while in [place] and noted a worsening in kidney function. [...] roasted chicken, asparagus and salad. While in [place], she was very conscious about her diet. She weighed every day. 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 Wearing lidocaine patch over site to right side of neck as she mentions having a temporary dialysis port in place during first hospitalization. This area was bothersome to her however, she does mention the discomfort is improving. Does not have a patient intake coordinator at this time. Can lay flat [...] function sug (more content not included)...[facility] [id number] Instructions* Patient Instructions* Albin Gu APRN.CNP - 11/03/2024 8:51 AM [...] or concern, you can call me at [phone]. documented in this encounterSycamore Medical Center05-01-2025 Telephone encounter Note * Telephone Encounter - Quin Lama MA - 11/02/2024 9:00 AM EDT Spoke with patient's , Natanael. Patient was in background listening. Relayed message below in detail. Reiterated need for ER for IVF and lab monitoring. Both patient and spouse again declined going to the ER. stated the kidney doctor at [facility] said her levels are not life threatening. I reiterated that if left uncorrected patient could end up with permanent kidney damage. states It's the Bumex that's causing it. States patient is urinating frequently which indicates to them that patients kidneys are functioning. States patients weight is stable. 145 lbs this morning. They are seeing Dr. Burdick on Wednesday11/06/24. states he is also going to try and get patient in to the heart center at [facility] today for the IVF. He said [...] be ordered without appointment. Quin Lama MA [facility]04-30-2025 Telephone encounter Note* Telephone Encounter - Irma Hwang RN - 11/01/2024 1:52 PM EDT Patient scheduled for 11/06/24. Irma Hwang RN [facility]04-30-2025 Miscellaneous Notes* Telephone Encounter - Irma Hwang RN - 11/01/2024 1:52 PM EDT Patient scheduled for 11/06/24. Irma Hwang RN documented in this encounterSycamore Medical Center04-29-2025 Telephone encounter Note * Telephone Encounter - Shaye Domingo APRN.JASPREET - 10/31/2024 4:46 PM EDT Creatinine is not improved and likely will not improve at home. Need IVF and Laboratory monitoring.Patient was not d/c'd from [facility], she left AMA. MONIQUE can cause terminal worker damage and if uncorrected patient could end up with permanent kidney damage. We are not allowed to force patients to stay no matter how sick they are so the fact that she was allowed to leave is not an indication thather lab values are not serious. Patient needs to proceed to ER as some of the medications she is oncan make her kidney function worse and not better if not corrected. [facility]04-29-[facility] Telephone encounter Note* Telephone Encounter - Radha [...] condition worsens. Please review and advise, Radha Pyel RN [facility]04-29-2025 Telephone encounter Note* Telephone Encounter - Shaye Domingo APRN.CNP - 10/31/2024 1:35 PM EDT Left message for patient to return call. Patient's kidney function has gotten significantly worse and she needs to proceed to ER immediately. [facility]04-29-2025 NoteHNO ID: [id number] Author: SHAYE DOMINGO APRN.CNP Service: ? Author Type: Nurse Practitioner Type: Progress Notes Filed: 10/31/2024 12:52 Note Text: Chief Complaint Patient presents with: Hospital F/U [facility] Berta Sanches is a 79 year old female who presents here today for Above Complaints.. Acute Mesenteric Ischemia: - Initially admitted to [facility] on 10/02/2024. - Underwent femoral ultrasound-guided angiogram with angioplasty and stenting of the SMA. - Required CRRT for MONIQUE post-op. - Developed AFib with RVR post-op. - Discharged after 23-day hospitalization. Acute on Chronic Heart Failure: - Given IV Lasix during initial admission. 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 Lua PACEMAKER 10/2019 PART. HYSTERECTOMY W/WO RMVL OVARIES/TUBES 1974 h/o cervical cancer ovaries remain PAST SURGICAL HISTORY OF 1996 Aortic valve repair, Dr. Apodaca PAST SURGICAL HISTORY OF 2001 [address] Beltrán, [facility] PAST SURGICAL HISTORY OF 2016 clipping [...] 24 hr tablet Take (more content not included)...[facility]04-29-2025 History of Present illness Narrative* Shaye Domingo APRN.BRANCH LEAD - 10/31/2024 11:11 AM EDT Chief Complaint Patient presents with: Hospital F/U [facility] Berta Sanches is a 79 year old female who presents here today for Above Complaints.. Acute Mesenteric Ischemia: - Initially admitted to [facility] on 10/02/2024. - Underwent femoral ultrasound-guided angiogram with angioplasty and stenting of the SMA. - Required CRRT for MONIQUE post-op. - Developed AFib with RVR post-op. - Discharged after 23-day hospitalization. Acute on Chronic Heart Failure: - Given IV Lasix during initial admission. - Readmitted to [facility] on 10/15/2024 for acute on chronic decompensated [...] regurgitation Pacemaker 10/21/[address] SELMA BARTLETT [id number] pulse generator, his bundle lead, right atrial lead Peripheral arterial disease (HCC) Rheumatic fever Steatosis, liver 03/26/2014 fatty liver on US. 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 Lua PACEMAKER 10/2019 PART. HYSTERECTOMY W/WO RMVL OVARIES/TUBES 1973 h/o cervical cancer ovaries remain PAST SURGICAL HISTORY OF 1996 Aortic valve repair, Dr. Apodaca PAST SURGICAL HISTORY OF 2001 [address] Beltrán, [facility] PAST SURGICAL HISTORY OF 2015 clipping [...] CONSULT TO PHYSICAL THERAPY - CONSULT TO WAREHOUSE TEAM MEMBER 6. Acute on chronic diastolic congestive heart failure (HCC) - ICD9: 428.33, 428.0, ICD10: I50.33 - HFpEF 50+ - Compensated - Continue current medications - Encouraged sodium restriction - Encouraged daily weights - Call if 3 lbs gained in 1 days - Will contact Dr. Burdick's office for sooner follow up to discuss recommendations from cardiology/nephrology from [facility]. 7. Hospital discharge follow-up - ICD9: V67.59, ICD10: Z09 -[address] [facility]. Shaye Domingo APRN.CNP documented in this encounterSycamore Medical Center04-10-2025 Telephone encounter Note * Telephone Encounter - Albin Gu APRN.CNP - 10/12/2024 12:29 PM EDT Patient called to schedule appt in HF Clinic. Patient also mentions she is currently in [place]. She was admitted to the hospital for [...] answered at this time. Albin Gu APRN.CNP [facility]04-10-2025 Miscellaneous Notes* Telephone Encounter - Albin Gu APRN.CNP - 10/12/2024 12:29 PM EDT Patient called to schedule appt in HF Clinic. Patient also mentions she is currently in [place]. She was admitted to the hospital for [...] time. Albin Gu APRN.CNP documented in this encounterSycamore Medical Center01-27-2025 Telephone encounter Note * Telephone Encounter - Melida Koo APRN.CNP - 07/31/2024 11:54 AM EST Pt called to request refill for KDur as she has run out of prescription. She states that she is currently in [place] and will be in [place] until October. [facility] called in [place], [place]. Spoke with Pharmacist on duty. Rx for KDur 10 meq PO daily given verbally #90 with no refills. Melida Koo APRN.CNP [facility] Work Phone: [phone] Miscellaneous Notes* Telephone Encounter - Melida Koo APRN.CNP - 07/31/2024 11:54 AM EST Pt called to request refill for KDur as she has run out of prescription. She states that she is currently in [place] and will be in [place] until October. [facility] called in [place], [place]. Spoke with Pharmacist on duty. Rx for KDur 10 meq PO daily given verbally #90 with no refills. Melida Koo APRN.CNP documented in this encounterSycamore Medical Center01-03-2025 NoteHNO ID: [id number] Author: SIGIFREDO RIVERA LPN Service: ? Author [...] membrane assessed by LIP pre and post procedureNewark Hospital01-03-2025 NoteHNO ID: [id number] Author: DEYSI COLLAZO APRN.BRANCH LEAD Service: ? Author Type: Nurse Practitioner Type: Progress Notes Filed: 07/07/2024 12:41 Note Text: This is a 78 year old female who presents today with: Patient presents with: Establish Care HISTORY OF PRESENT ILLNESS: Berta Sanches is a 78 year old female. Patient presents with: Establish Care Pt presents today to [facility]. 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 Lua PACEMAKER 10/2019 PART. HYSTERECTOMY W/WO RMVL OVARIES/TUBES 1973 h/o cervical cancer ovaries remain PAST SURGICAL HISTORY OF 1996 Aortic valve repair, Dr. Apodaca PAST SURGICAL HISTORY OF 2001 [address] Beltrán, [facility] PAST SURGICAL HISTORY OF 2016 clipping [...] Type 2 DM - (more content not included)...[facility]10-04-2024 Instructions* Patient Instructions* Albin Gu APRN.BRANCH LEAD - 04/07/2024 9:18 AM EDT Continue current [...] or concern, you can call me at [phone]. documented in this encounterSycamore Medical Center10-04-2024 History of Present illness Narrative* Albin Gu APRN.JASPREET - 04/07/2024 9:00 AM EDT Images from the original note were not included. [facility] [place] [facility] Heart Failure Clinic OUTPATIENT VISIT DATE [...] boat and take it out on [place] to fish. 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 Lua PACEMAKER 10/2019 PART. HYSTERECTOMY W/WO RMVL OVARIES/TUBES 1974 h/o cervical cancer ovaries remain PAST SURGICAL HISTORY OF 1996 Aortic valve repair, Dr. Apodaca PAST SURGICAL HISTORY OF 2001 [address] Beltrán, [facility] PAST SURGICAL HISTORY OF 2016 clipping [...] * Heart Rate Histograms reviewed AP 45%, JOB SERVICE CONSULTANT 10.4% Title: Tachycardia: AF * Stored EGMs are consistent with or suggestive of Atrial Fibrillation * AT/AF [place]hler: 38.7% * Total number of events: 4,598 [...] Discussed red flags and when to call MD/BRAND STRATEGY MANAGER or [facility]tayler CHUN. Medications reconciled at end of visit: yes I spent 30 minutes in this visit, with more than 50% of the time devoted to patient counseling. SIGNATURE: Albin Gu APRN.CNP PATIENT NAME: Berta Sanches DATE: April 07, 2024 TIME: 904 documented in this encounterSycamore Medical Center10-04-2024 NoteHNO ID: [id number] Author: ALBIN GU APRN.CNP Service: ? Author Type: Nurse Practitioner Type: Progress Notes Filed: 04/07/2024 09:57 Note Text: [facility] Heart Failure Clinic OUTPATIENT VISIT DATE [...] a boat and take it out on [employer] to [employer]. IMPRESSION: NYHA Functional Class: II Stage: C [...] pneumonia 07/20/ (more content not included)...[facility] 02-21-2024 Telephone encounter Note* Telephone Encounter - Melida Koo APRN.JASPREET - 02/21/2024 12:08 PM EDT Called and [...] of plan of care. Melida Koo APRN.CNP [facility] Work Phone: 1(325) 945-820308-19-2024 Miscellaneous Notes* Telephone Encounter - Melida Koo [...] care. Melida Koo APRN.CNP documented in this encounterSycamore Medical Center08-05-2024 Telephone encounter Note * Telephone Encounter - [...] directions and will have results sent to Mariebll as well. Ying Fuentes LPN [facility]08-05-2024 Miscellaneous Notes* Telephone Encounter - Ying Fuentes [...] BNP. Maribell King APRN.CNP documented in this encounterSycamore Medical Center08-05-2024 Telephone encounter Note * Telephone Encounter - Maribell King APRN.CNP - 02/07/2024 12:47 PM EDT Patient should double Lasix to 40 mg BID for 3 days, then recheck BMP that has been ordered per PCP. Please ask patient to monitor daily weights. Maribell King APRN.CNP [facility]08-05-2024 Telephone encounter Note* Telephone Encounter - Melida [...] left for call back. Melida Koo APRN.CNP [facility] Work Phone: [phone]) 462-649608-05-2024 Miscellaneous Notes* Telephone Encounter - Melida Koo [...] back. Melida Koo APRN.JASPREET documented in this encounterSycamore Medical Center08-02-2024 Telephone encounter Note * Telephone Encounter - Ying Fuentes LPN - 02/04/2024 2:13 PM EDT I spoke to [employer] and informed them of Maribell's response to lab results and recommendations. Patient voiced understanding. Patient states BNP is elevated from 2 months ago. Patient asking if she should make any changes. Patient c/o weight gain and SOB with activity. Ying Fuentes LPN [facility]08-02-2024 Telephone encounter Note* Telephone Encounter - Ying Fuentes LPN - 02/04/2024 2:12 PM EDT ----- Message from Maribell King APRN.CNP sent at 02/04/2024 2:02 PM EDT ----- Please call the patient and report lab results revealed stable kidney function, normal potassium level, normal liver function, cholesterol is under good control, and elevated BNP. Maribell King APRN.CNP [facility]08-02-2024 Telephone encounter Note* Telephone Encounter - Albin [...] answered at this time. Albin Gu APRN.CNP [facility]08-02-2024 Miscellaneous Notes* Telephone Encounter - Albin Gu [...] time. Albin Gu APRN.CNP documented in this encounterSycamore Medical Center07-15-2024 Instructions* Patient Instructions* Carla Burdick MD - 01/17/2024 10:08 AM EDT We will repeat fasting blood work documented in this encounterSycamore Medical Center07-15-2024 History of Present illness Narrative* Carla Burdick MD - 01/17/2024 9:20 AM EDT Images from the original note were not included. [facility] SECTION OF REGIONAL CARDIOLOGY Cardiology ([facility]) [address] [facility] [id number] OUTPATIENT VISIT DATE 01/17/2024 PRIMARY CARE PHYSICIAN: Doreen Le [address] [place] [address] HISTORY OF PRESENT ILLNESS: Ms. Sanches is [...] 06/01/16 Mitral valve regurgitation Pacemaker 10/21/[address] SELAM BARTLETT [id number] pulse generator, his bundle lead, right atrial lead Peripheral arterial disease (HCC) Rheumatic fever Steatosis, liver 03/26/2014 fatty liver on US. 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 Lua PACEMAKER 10/2019 PART. HYSTERECTOMY W/WO RMVL OVARIES/TUBES 1974 h/o cervical cancer ovaries remain PAST SURGICAL HISTORY OF 1996 Aortic valve repair, Dr. Apodaca PAST SURGICAL HISTORY OF 2001 [address] Beltrán, [facility] PAST SURGICAL HISTORY OF 2016 clipping [...] 157/59 Pulse 64 Ht 157.5 cm (5' 2) Wt 66.8 kg (147 lb 3.2 oz) [...] I73.9 Carla Burdick MD documented in this encounterSycamore Medical Center07-15-2024 NoteHNO ID: [id number] Author: CARLA BURDICK MD Service: ? Author Type: Physician Type: Progress Notes Filed: 01/17/2024 10:36 Note Text: [facility] SECTION OF REGIONAL CARDIOLOGY Cardiology ([facility]) [address] [facility] [phone] OUTPATIENT VISIT DATE 01/17/2024 PRIMARY CARE PHYSICIAN: Doreen Le [address] [place] [address] HISTORY OF PRESENT ILLNESS: Ms. 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 Lua PACEMAKER 10/2019 PART. HYSTERECTOMY W/WO RMVL OVARIES/TUBES 1973 h/o cervical cancer ovaries remain PAST SURGICAL HISTORY OF 1996 Aortic valve repair, Dr. Apodaca PAST SURGICAL HISTORY OF 2001 [address] Beltrán, [facility] PAST SURGICAL HISTORY OF 2015 clipping [...] mouth once daily. pota (more content not included)...[facility]06-04-[facility]24 Instructions* Patient Instructions* Deysi Collazo APRN.CNP - 12/07/2023 12:13 PM EDT Continue the same medications. If no better or worsening, start the antibiotic. Start mucinex or coricidin. Let us know if no improvement/worsening. 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 Lua PACEMAKER 10/2019 PART. HYSTERECTOMY W/WO RMVL OVARIES/TUBES 1974 h/o cervical cancer ovaries remain PAST SURGICAL HISTORY OF 1996 Aortic valve repair, Dr. Apodaca PAST SURGICAL HISTORY OF 2001 [address] Beltrán, [facility] PAST SURGICAL HISTORY OF 2015 clipping [...] as needed for worsening/no improvement. Deysi Collazo APRN.BRANCH LEAD documented in this encounterSycamore Medical Center05-24-2024 History of Present illness Narrative* Valentine Meneses [...] admit pt. Patient Attributed To: QAE Payer: Froilancarmelina BERYL Action Taken: Encounter routed to provider Contact made with patient: No, Chart review only. Signature: Valentine Meneses RN documented in this encounterSycamore Medical Center05-23-2024 Instructions* Patient Instructions* Albin Gu APRN.JASPREET - 11/25/2023 10:56 AM EDT Continue current [...] question or concern, you cancall me at [phone]. documented in this encounterSycamore Medical Center05-23-2024 History of Present illness Narrative* Albin Gu APRN.JASPREET - 11/25/2023 10:00 AM EDT Images from the original note were not included. [facility] [place] [facility] Heart Failure Clinic OUTPATIENT VISIT DATE [...] timeline ofover 5 years ago. Was in [place] over the winter for 3 months. Noticed leg swelling while down in [place]. 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 Lua PACEMAKER 10/2019 PART. HYSTERECTOMY W/WO RMVL OVARIES/TUBES 1974 h/o cervical cancer ovaries remain PAST SURGICAL HISTORY OF 1996 Aortic valve repair, Dr. Apodaca PAST SURGICAL HISTORY OF 2001 [address] Beltrán, [facility] PAST SURGICAL HISTORY OF 2015 clipping [...] 25, 2023 TIME: 1000 documented in this encounterSycamore Medical Center05-21-2024 History of Present illness Narrative* Chula Morales RN - 11/23/2023 2:39 PM EDT Lab from 11/19/[address] Mujica. Greatly improved with oral iron. Pt notified. No need for OVin Hem/Onc and to follow up with PCP. Pt verbalized understanding. Chula Morales RN documented in this encounterSycamore Medical Center05-20-2024 Instructions* Patient Instructions* Deysi Collazo APRN.CNP - 11/22/2023 9:53 AM EDT Continue the same medication. Repeat lab on Wednesday after you see Dr. Rodriguez. Moist heat/ice to the back. Massage to the area. Let us know if any problems/concerns. documented in this encounterSycamore Medical Center05-20-2024 History of Present illness Narrative* Deysi Collazo APRN.JASPREET - 11/22/2023 9:08 AM EDT This is a 78 year old female who presents today with: Patient presents with: Hospital Follow Up: [facility] follow up dc'd 11/12/23 dx: CHF HISTORY OF PRESENT ILLNESS: Berta Sanches is a 78 year old female. Patient presents with: Hospital Follow Up: [facility] follow up dc'd 11/12/23 dx: CHF Pt presents today for hospital follow-up. Discharged on 11/11 from [facility] w/ dx of CHF. 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 Lua PACEMAKER 10/2019 PART. HYSTERECTOMY W/WO RMVL OVARIES/TUBES 1974 h/o cervical cancer ovaries remain PAST SURGICAL HISTORY OF 1996 Aortic valve repair, Dr. Apodaca PAST SURGICAL HISTORY OF 2001 [address] Beltrán, [facility] PAST SURGICAL HISTORY OF 2016 clipping [...] improvement. Deysi Collazo APRN.JASPREET documented in this encounterSycamore Medical Center05-17-2024 Telephone encounter Note * Telephone Encounter - Albin Gu APRN.CNP - 11/19/2023 8:37 AM EDT Patient called office for instructions on diuretics as her weight is up 5 lbs. She states she was instructed to call the office with questions. This UNDERWRITING SALES REPRESENTATIVE has not seen this patient in clinic but is scheduled to see her in the following week. The patient states she has not been able to reach her rn medicare. She has been taking additional 20 mg [...] Patient agrees and understands. Albin Gu APRN.CNP [facility] Work Phone: 1(528) 202-507805-17-2024 Miscellaneous Notes* Telephone Encounter - Albin Gu APRN.CNP - 11/19/2023 8:37 AM EDT Patient called office for instructions on diuretics as her weight is up 5 lbs. She states she was instructed to call the office with questions. This UNDERWRITING SALES REPRESENTATIVE has not seen this patient in clinic but is scheduled to see her in the following week. The patient states she has not been able to reach her rn medicare. She has been taking additional 20 mg [...] understands. Albin Gu APRN.CNP documented in this encounterSycamore Medical Center05-15-2024 Telephone encounter Note * Telephone Encounter - [...] No results found for this basename: BNP [facility]05-15-2024 Miscellaneous Notes* Telephone Encounter - Gwen Valentine [...] for this basename: BNP documented in this encounterSycamore Medical Center05-14-2024 Telephone encounter Note * Telephone Encounter - Mona Noonan - 11/16/2023 8:53 AM EDT Called patient and scheduled as Directed Mona Noonan [facility]05-14-2024 Miscellaneous Notes* Telephone Encounter - Mona Noonan [...] HEMATOLOGY Edmund Alex PA-C documented in this encounterSycamore Medical Center05-14-2024 History of Present illness Narrative* Geri Montes RN - 11/16/2023 8:15 AM EDT ACM CECY RN Patient identified by name and date of . Reason for review or outreach: Chart Review Cecy Priority Emergency Department Utilization ED DIAGNOSES/REASON(S) FOR ED USE: OTHER FINDINGS/SUMMARY:E.D. visit on 11-09-23 transitioned to [facility] Admit Patient Attributed To: PEDROE Payer: Pradeep CORDOBA Action Taken: No action needed Contact made with patient: No, Chart review only. Signature: Geri Montes RN documented in this encounterSycamore Medical Center05-13-2024 Telephone encounter Note * Telephone Encounter - Nara Malone RN - 11/15/2023 10:32 AM EDT Transitional Care Management (TCM) [facility] Monitoring Program Provider Action / FYI: na SUMMARY: Outreach type: INITIAL OUTREACH Discharge Network Status: In-Network Discharge Source of Patient: [facility] TCM Discharge Report Patient discharged from [facility] on 11.09.23. Admitted for Acute on chronic left systolic heart failure . Contact made with patient: Yes, for Initial Outreach Hi my name is Nara Malone RN and I am calling from the [facility] on behalf of your PrimaryCare Provider, Doreen [...] Appointment Center phone number to speak witha family service assistant who can assist you with that appointment. [...] Malone RN November 15, 2023 10:35 AM [facility]05-13-2024 Miscellaneous Notes* Telephone Encounter - Nara Malone RN - 11/15/2023 10:32 AM EDT Transitional Care Management (TCM) [facility] Monitoring Program Provider Action / FYI: na SUMMARY: Outreach type: INITIAL OUTREACH Discharge Network Status: In-Network Discharge Source of Patient: [facility] TCM Discharge Report Patient discharged from [facility] on 11.09.23. Admitted for Acute on chronic left systolic heart failure . Contact made with patient: Yes, for Initial Outreach Hi my name is Nara Malone RN and I am calling from the [facility] on behalf of your PrimaryCare Provider, Doreen [...] Appointment Center phone number to speak witha family service assistant who can assist you with that appointment. [...] 15, 2023 10:35 AM documented in this encounterSycamore Medical Center05-13-2024 Telephone encounter Note * Telephone Encounter - Ralph Mujica DO - 11/15/2023 9:31 AM EDT Hemoglobin okay. Not urgent. Next new appointment time with either me or Dr. Rodriguez. 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 Please schedule. Telephone on 10/31/23 CONSULT TO HEMATOLOGY Edmund Alex PA-C [facility]05-10-2024 Telephone encounter Note* Telephone Encounter - Vandana Baird PSS - 11/12/2023 3:45 PM EDT Medical Care at home referral was received for Heart Failure services. Unfortunately the referral is declined at this time due to geographic location. Thank you for the referral. KAITLYNN Tuttle [facility]05-10-2024 Miscellaneous Notes* Telephone Encounter - Vandana Baird [...] Date Referral Received: 11/12/2023 Referral Source: [facility] TC Program: HF Consult UD Consult scheduled with: NA Date of : 1945 Age: [age] year old PCP: Doreen Le PA-C Visit address from [facility]: [address] [place] [address] Name of Physician who gave the order: Dr. Rita Rey Other services ordered: None Primary Insurance Company: Payor: [employer] MEDICARE / Plan: T MEDICARE PPO / Product Type: PPO / Primary Insurance ID Number: [id number] documented in this encounterSycamore Medical Center05-10-2024 Telephone encounter Note * Telephone Encounter - Vandana Baird PSS - 11/12/2023 3:44 PM EDT Transitional Care Program - Intake Template - for interface Date Referral Received: 11/12/2023 Referral Source: [facility] TC Program: HF Consult UD Consult scheduled with: NA Date of : 1945 Age: [age] year old PCP: Doreen Le PA-C Visit address from [facility]: [address] [place] [address] Name of Physician who gave the order: Dr. Rita Rey Other services ordered: None Primary Insurance Company: Payor: [employer] MEDICARE / Plan: [employer] MEDICARE PPO / Product Type: PPO / Primary Insurance ID Number: [id number] [facility]05-10-2024 Evaluation note* Diagnosis Stage 3 chronic kidney disease, unspecified whether stage 3a or 3b CKD (HCC)- Primary documented in this encounter [facility]05-06-2024 History of Present illness Narrative* Bere Boykin APRN.[employer] - 11/08/2023 4:30 PM EDT Images from the original note were not included. 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 Lua PACEMAKER 10/2019 PART. HYSTERECTOMY W/WO RMVL OVARIES/TUBES 1973 h/o cervical cancer ovaries remain PAST SURGICAL HISTORY OF 1996 Aortic valve repair, Dr. Apodaca PAST SURGICAL HISTORY OF 2001 [address] Beltrán, [facility] PAST SURGICAL HISTORY OF 2015 clipping [...] - May be candidate for DCCV at [facility] once euvolemic 3. Acute on chronic [...] hemodynamic stability, he spouse drove her to [facility] ER. I called report to Dr. Tuttle in theER. CONTACT INFORMATION: Bere Boykin APRN.[facility] Cardiology [id number] [facility] [address] Dept: [phone] I have reviewed the patient's medications and allergies, past medical, surgical, social and family history, updating these as appropriate. See Histories section of the [facility] for a display of this information. 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 Lua PACEMAKER 10/2019 PART. HYSTERECTOMY W/WO RMVL OVARIES/TUBES 1974 h/o cervical cancer ovaries remain PAST SURGICAL HISTORY OF 1996 Aortic valve repair, Dr. Apodaca PAST SURGICAL HISTORY OF 2001 [address] Beltrán, [facility] PAST SURGICAL HISTORY OF 2015 clipping [...] Heart Failure) (Hcc) Sss (Sick Sinus Syndrome) ([facility]) Duodenal Ulcer Type 2 Diabetes Mellitus With Diabetic Peripheral Angiopathy Without Gangrene, Without Long-Term Current Use of Insulin ([facility]) Longstanding Persistent Atrial Fibrillation ([facility]) S/P Placement of Cardiac Pacemaker Ckd (Chronic Kidney Disease) Platelet Inhibition Due to Plavix Diverticulosis Lung Nodule, Solitary Red Blood Cell Antibody Positive Iron Deficiency Anemia Secondary to Inadequate Dietary Iron Intake Iron Malabsorption Chronic Renal Failure, Stage 3b ([facility]) Spondylolisthesis At L4-L5 Level Occlusion of Superior Mesenteric Artery ([facility]) Current Outpatient Medications Medication Sig Dispense Refill [...] systolic and diastolic CHF (congestive heart failure) ([facility]) - ICD9: 428.42, 428.0, ICD10: I50.42 5. Dilated cardiomyopathy (HCC) - ICD9: 425.4, ICD10: I42.0 6. Longstanding persistent atrial fibrillation ([facility]) - ICD9: 427.31, ICD10: I48.11 7. SSS (sick sinus syndrome) ([facility]) - ICD9: 427.81, ICD10: I49.5 8. S/P [...] answered. Doreen Le PA-C documented in this encounterSycamore Medical Center05-01-2024 Telephone encounter Note * Telephone Encounter - Doreen Le PA-C - 11/03/2023 10:36 AM EDT She needs to see person scheduled next week. She may need additional appointment with the pulmonology specialist in addition but haven't heard from Dr. Joan garcia. Thanks, Edmund Le PA-C [facility]05-01-2024 Miscellaneous Notes* Telephone Encounter - [...] review pt is currently scheduled with a Manager Document Control in [place] on 11/08/23. This was setup on10/25/23. Her [...] Thanks, Edmund Le PA-C documented in this encounterSycamore Medical Center04-30-2024 Telephone encounter Note * Telephone Encounter - Sandra Thacker LPN - 11/02/2023 5:13 PM EDT Patient notified. Verbalized understanding. Is scheduled for for follow up. [facility]04-30-2024 Miscellaneous Notes* Telephone Encounter - Sandra Thacker LPN - 11/02/2023 5:13 PM EDT Patient notified. Verbalized understanding. Is scheduled for for follow up. * Telephone Encounter - Doreen Le PA-C - 11/02/2023 5:04 PM EDT Please advise from [employer] message: Hi Cassidy You labs show you [...] PANEL Edmund Alex PA-C documented in this encounterSycamore Medical Center04-30-2024 Telephone encounter Note * Telephone Encounter - Doreen Le PA-C - 11/02/2023 5:04 PM EDT Please advise from [employer] message: Hi Cassidy You labs show you [...] BASIC METABOLIC PANEL Thanks, Edmund Le PA-C [facility]04-30-2024 Telephone encounter Note* Telephone Encounter - Uma Parson MA - 11/02/2023 10:59 AM EDT After review pt is currently scheduled with a Manager Document Control in [place] on 11/08/23. This was setup on10/25/23. Her Cardiology appt with Clara is in January. Is she still following with him or seeing someone new? Uma Parson MA [facility]04-30-2024 Telephone encounter Note* Telephone Encounter - Doreen Le PA-C - 11/02/2023 10:54 AM EDT Please see if we can expedite cardiology visit to LIA r/t SOB, weight gain, lower extremity swelling and recent abnormal echo finding. Patient is willing for invasive procedures if necessary. Thanks, Edmund Le PA-C [facility]04-16-2024 History of Present illness Narrative* Lars Silva DO - 10/19/2023 4:00 PM EDT Reviewed DVT study with Cassidy. No evidence of DVT. Recommend follow up as scheduled with PCP and cardiology. documented in this encounterSycamore Medical Center04-15-2024 History of Present illness Narrative* Marisol Cook [...] PATIENT PRESENTS WITH AN IMPLANTABLE OR ATTACHED EXERCISE EQUIPMENT SPECIALIST: No RADIOLOGY DEPARTMENT: General X-ray: Exam(s) Completed: Chest X-Ray PERIPHERAL IV DATA: Not applicable SIGNED BY: RT Mario(R) October 18, 2023 2:28 PM documented in this encounterSycamore Medical Center04-15-2024 Instructions* Patient Instructions* Doreen Le [...] lab in 2 weeks. documented in this encounter[address]15-2024 History of Present illness Narrative* Doreen Le PA-C - 10/18/2023 1:00 PM EDT 78 year old female with c/o here for Pedro Aneurysm Neurosurgeon Dr. Dianne Rogers, Susan Mtz CNP 12/10/2022 MRA brain W/WO: Satisfactory appearance of [...] aneurysm (Ranjan 0) Sss (sick sinus syndrome) ([facility]) Paroxysmal atrial fibrillation ([facility]) S/p placement of cardiac pacemaker (primary encounter diagnosis) Chronic combined systolic and diastolic chf (congestive heart failure) ([facility]) Dilated cardiomyopathy ([facility]) Ascending aorta dilatation [facility] H/o rheumatic heart disease History of prosthetic [...] Lymph 1.00 - 4.00 k/uL 2.82 2.73 Sebastian% % 13.0 10.2 Abs Sebastian <0.87 k/uL 1.10 (H) 0.79 Eosin% % [...] recent CT scans which were done in [facility]. 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 Lua PACEMAKER 10/2019 PART. HYSTERECTOMY W/WO RMVL OVARIES/TUBES 1974 h/o cervical cancer ovaries remain PAST SURGICAL HISTORY OF 1996 Aortic valve repair, Dr. Apodaca PAST SURGICAL HISTORY OF 2001 [address] Beltrán, [facility] PAST SURGICAL HISTORY OF 2016 clipping [...] Colon Skin Cancer Pad (Peripheral Artery Disease) ([facility]) Pedro Aneurysm of Anterior Communicating Artery Stage [...] (primary diagnosis) 2. SSS (sick sinus syndrome) ([facility]) - ICD9: 427.81, ICD10: I49.5 3. Paroxysmal atrial fibrillation ([facility]) - ICD9: 427.31, ICD10: I48.0 4. S/P placement of cardiac pacemaker - ICD9: V45.01, ICD10: Z95.0 5. Chronic combined systolic and diastolic CHF (congestive heart failure) ([facility]) - ICD9: 428.42, 428.0, ICD10: I50.426. Dilated cardiomyopathy ([facility]) - ICD9: 425.4, ICD10: I42.0 7. Ascending aorta dilatation ([facility]) - ICD9: 447.71, ICD10: I77.810 8. History [...] % (FLUSH) INJECTION SYRINGE - INSERT IV ([place]) - IV DISCONTINUE 10. Platelet inhibition due [...] medication Doreen Le PA-C documented in this encounterSycamore Medical Center04-12-2024 Miscellaneous Notes* Telephone Encounter - [...] appointment in January 2024. Patient has called [facility] that they told her they are scheduling into April but if seen there she cannot be seen back in [place] location which is her preference. Patient is willing to travel to [facility] if she needs to. Please review and advise. Mckayla Albert LPN documented in this encounterSycamore Medical Center04-11-2024 History of Present illness Narrative* Lars Silva DO - 10/14/2023 2:57 PM EDT Images from the original note were not included. Heart , Vascular [facility] Thoracic [place] DEPARTMENT OF VASCULAR SURGERY OUTPATIENT VISIT DATE October 14, 2023 OUTPATIENT VISIT TYPE ESTABLISHED SERVICE DATE: 10/14/2023 SERVICE TIME: 2:58 PM PRIMARY CARE PHYSICIAN: Doreen Le PA-C HISTORY OF PRESENT ILLNESS: Ms. Sanches is a 78 year old female who presents today for a vascular surgery follow-up visit has noticed increased bilateral lower extremity edema especially in thighs. She recently returned home from [place]. She had duplex in [place] which was negative for DVT. 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 Lua PACEMAKER 10/2019 PART. HYSTERECTOMY W/WO RMVL OVARIES/TUBES 1974 h/o cervical cancer ovaries remain PAST SURGICAL HISTORY OF 1996 Aortic valve repair, Dr. Apodaca PAST SURGICAL HISTORY OF 2001 [address] Beltrán, [facility] PAST SURGICAL HISTORY OF 2015 clipping [...] 2023 TIME: 2:58 PM documented in this encounterSycamore Medical Center01-01-2024 History of Present illness Narrative* [...] interactions). Bijan Cole MD documented in this encounterSycamore Medical Center12-04-2023 Miscellaneous Notes* Telephone Encounter - Sheree Savage Ma - 06/07/2023 4:55 PM EST Patient stopped by office and picked up shoe. Small Squared toe post op shoe Sheree Savage Ma * Telephone Encounter - Sheree Savage Ma - 06/07/2023 1:49 PM EST Called pt and she will stop in office this afternoon to molded goods spot picker post op shoe. Shereedieter Savage Ma * Telephone Encounter - Parsonjyoti Cordoba Uma - 06/07/2023 9:43 AM EST See response from pt. Uma Parson Ma documented in this encounterSycamore Medical Center11-28-2023 History of Present illness Narrative* [...] 01, 2023 2:31 PM documented in this encounterSycamore Medical Center10-27-2023 History of Present illness Narrative* Mckayla Reed, (R) - 04/30/2023 8:00 AM EDT Radiology Service [...] 30, 2023 1:48 PM documented in this encounterSycamore Medical Center10-09-2023 History of Present illness Narrative* Marisol Cook RT(Annalisa) - 04/12/2023 10:10 AM EDT Radiology Service [...] 12, 2023 10:32 AM documented in this encounterSycamore Medical Center09-11-2023 Miscellaneous Notes* Telephone Encounter - [...] and advise. Agueda Schulte documented in this encounterSycamore Medical Center07-27-2023 Miscellaneous Notes* Telephone Encounter - Bushra Strauss - 01/28/2023 10:43 AM EDT Patient has been contacted and scheduled with Dr. Silva * Telephone Encounter - Sheree Savage Ma - 01/28/2023 9:55 AM EDT Pt viewed [employer] message. Please help pt set up consult. * Telephone Encounter - Doreen Le PA-C - 01/28/2023 6:33 AM EDT Please schedule: Telephone on 01/28/23 CONSULT TO VASCULAR SURGERY Pvd (peripheral vascular disease) with claudication (hcc) (primary encounter diagnosis) See [employer] regarding PVR resuts Edmund Alex PA-C documented in this encounterSycamore Medical Center07-07-2023 Miscellaneous Notes* Telephone Encounter - Berta Keith - 01/08/2023 1:51 PM EDT Patient stated she will talk to Edmund at her April' appoitment.Berta Garcia Pss * Telephone Encounter - Sheree Savage Ma - 01/08/2023 9:34 AM EDT Images from the original note were not included. Doreen Le PA-C [facility] David Aldana Please assist patient to schedule outstanding CT chest WO to follow lung nodules if she is amenable Edmund Alex PA-C documented in this encounterSycamore Medical Center07-06-2023 Instructions* Patient Instructions* Doreen Le PA-C - [...] due to heart conditions documented in this encounterSycamore Medical Center07-06-2023 History of Present illness Narrative* Doreen Le PA-C - 01/07/2023 8:40 AM EDT 77 year old female with c/o here for routine follow up. Worst problem currently are legs. Has to get up and walk around. Drinks tonic water with quinine. Pain is excruciating. Severe pain. Not every night. Pedro Aneurysm Neurosurgeon Dr. Dianne Rogers, Susan Mtz [employer] 12/10/2022 MRA brain W/WO: Satisfactory appearance of [...] - 4.00 k/uL 2.05 2.22 1.81 2.82 Sebastian% % 12.7 12.3 12.6 13.0 Abs Sebastian <0.87 k/uL 0.93 (H) 1.06 (H) 0.74 [...] recent CT scans which were done in [facility]. 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 Lua PACEMAKER 10/2019 PART. HYSTERECTOMY W/WO RMVL OVARIES/TUBES 1974 h/o cervical cancer ovaries remain PAST SURGICAL HISTORY OF 1996 Aortic valve repair, Dr. Apodaca PAST SURGICAL HISTORY OF 2001 [address] Beltrán, [facility] PAST SURGICAL HISTORY OF 2015 clipping [...] ARTERIES [facility] 2. Atherosclerosis of [place] artery of both lower extremities with intermittent [...] UR - HGB A1C documented in this encounterSycamore Medical Center06-08-2023 NoteHNO ID: [id number] Author: RT Pranav(R) Service: Radiology Author Type: [...] BY: RT Pranav(R) December 10, 2022 1:06 [facility]04-04-2023 History of Present illness Narrative* Doreen Le PA-C - 10/06/2022 9:00 AM EDT 77 year old female with c/o here for follow up Pedro Aneurysm Neurosurgeon Dr. Dianne Rogers, Susan Mtz [facility] 12/07/2017 note: f/u MRA recommended 202012/02/2017 [...] - 4.00 k/uL 2.05 2.22 1.81 2.82 Sebastian% % 12.7 12.3 12.6 13.0 Abs Sebastian <0.87 k/uL 0.93 (H) 1.06 (H) 0.74 [...] recent CT scans which were done in [facility]. 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 Lua PACEMAKER 10/2019 PART. HYSTERECTOMY W/WO RMVL OVARIES/TUBES 1974 h/o cervical cancer ovaries remain PAST SURGICAL HISTORY OF 1996 Aortic valve repair, Dr. Apodaca PAST SURGICAL HISTORY OF 2001 [address] Beltrán, [facility] PAST SURGICAL HISTORY OF 2016 clipping [...] Colon Skin Cancer Pad (Peripheral Artery Disease) ([facility]) Pedro Aneurysm of Anterior Communicating Artery Stage [...] (primary diagnosis) 2. SSS (sick sinus syndrome) ([facility]) - ICD9: 427.81, ICD10: I49.5 3. Chronic combined systolic and diastolic CHF (congestive heart failure) ([facility]) - ICD9: 428.42, 428.0, ICD10: I50.42 4. Dilated cardiomyopathy (HCC) - ICD9: 425.4, ICD10: I42.0 5. Ascending aorta dilatation ([facility]) - ICD9: 447.71, ICD10: I77.810 6. H/O [...] PANEL Doreen Le PA-C documented in this encounterSycamore Medical Center04-03-2023 History of Present illness Narrative* [...] 05, 2022 9:36 AM documented in this [facility]04-03-2023 Miscellaneous Notes* Result Encounter Note - Brayan Chicas MD - 10/05/2022 8:30 AM EDT Here are the test results.Keep follow up appointment to discuss the results. documented in this [facility]03-28-2023 Miscellaneous Notes* Telephone Encounter - Rachele Bee LPN - 09/29/2022 12:06 PM EDT Patient no longer followed by Dr. Lund. Rachele Bee LPN documented in this [facility]03-27-2023 Instructions* Patient Instructions* Carla Burdick MD - 09/28/2022 9:30 AM EDT We will repeat an echocardiogram in March Repeat fasting blood work documented in this encounterSycamore Medical Center03-27-2023 History of Present illness Narrative* Carla Burdick MD - 09/28/2022 9:00 AM EDT Images from the original note were not included. [facility] SECTION OF REGIONAL CARDIOLOGY Cardiology ([facility]) [address] [facility] [id number] OUTPATIENT VISIT DATE 09/28/2022 PRIMARY CARE PHYSICIAN: Doreen Le [address] [place] [address] HISTORY OF PRESENT ILLNESS: Ms. 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 Lua PACEMAKER 10/2019 PART. HYSTERECTOMY W/WO RMVL OVARIES/TUBES 1973 h/o cervical cancer ovaries remain PAST SURGICAL HISTORY OF 1996 Aortic valve repair, Dr. Apodaca PAST SURGICAL HISTORY OF 2001 [address] Beltrán, [facility] PAST SURGICAL HISTORY OF 2016 clipping [...] 128/74 Pulse 78 Ht 156.2 cm (5' 1.5) Wt 68.4 kg (150 lb 12.8 oz) [...] (FLUSH) INJECTION SYRINGE 3. Paroxysmal atrial fibrillation ([facility]) - ICD9: 427.31, ICD10: I48.0 Status post Watchman procedure. Patient has been maintained on low-dose aspirin. Repeat CBC is pending 4. Ascending aorta dilatation ([facility]) - ICD9: 447.71, ICD10: I77.810 5. Dilated cardiomyopathy ([facility]) - ICD9: 425.4, ICD10: I42.0 Patient maintained on Toprol and losartan. 6. Chronic combined systolic and diastolic CHF (congestive heart failure) ([facility]) - ICD9: 428.42, 428.0, ICD10: I50.42 Patient doing well on current diuretic therapy low-sodium diet 7. SSS (sick sinus syndrome) ([facility]) - ICD9: 427.81, ICD10: I49.5 8. S/P placement of cardiac pacemaker - ICD9: V45.01, ICD10: Z95.0 9. PAD (peripheral artery disease) ([facility]) - ICD9: 443.9, ICD10: I73.9 History of mild bilateral carotid artery disease. No symptoms for TIA or CVA. 10. Hyperlipidemia with target LDL less than 70 - ICD9: 272.4, ICD10: E78.5 Maintained on simvastatin 20 mg daily. Repeat fasting lipid panel - LIPID PANEL BASIC Carla Budrick MD documented in this encounterSycamore Medical Center02-27-2023 Miscellaneous Notes* Telephone Encounter - [...] 10/06/22 Margoth Bolaños MA documented in this encounterSycamore Medical Center01-18-2023 Miscellaneous Notes* Telephone Encounter - Mars Xiao - 07/22/2022 12:54 PM EST Study explained/reviewed with patient. Study related follow-up requirements were discussed. Risks, benefits, alternatives, personnel, and costs of the study explained/reviewed. Patient provided informed consent for review by email. Study related questions were addressed. Provided patient with contact information to call. Mars Xiao documented in this encounterSycamore Medical Center01-16-2023 Miscellaneous Notes* Telephone Encounter - Sheree Savage Ma - 07/20/2022 12:11 PM EST Faxed to [facility] at [phone] * Telephone Encounter - Sheree Savage Ma - 07/08/2022 12:45 PM EST Request sent to radiology * Telephone Encounter - Doreen Le PA-C - 07/08/2022 10:37 AM EST Please have 02/21/[address] IVC PE from [facility] imported and reviewed by radiologist for comparison with 03/19/2022 CT chest w IVCON PE. Not sure if this is the right order or even if needs order. Telephone on 07/08/22 CONSULT TO RADIOLOGY Edmund Alex PA-C documented in this encounterSycamore Medical Center01-03-2023 History of Present illness Narrative* Doreen eL PA-C - 07/07/2022 9:00 AM EST 76 [...] gradient 47/mmHg and mean 23mmHg up from 14. 03/24/2019 chest CTA 1. Small incompletely occluded [...] 1.00 - 4.00 k/uL 2.05 2.22 1.81 Sebastian% % 12.7 12.3 12.6 Abs Sebastian <0.87 k/uL 0.93 (H) 1.06 (H) 0.74 [...] artery Neurosurgeon Dr. Dianne Rogers, Susan Mtz [employer] 12/07/2017 note: f/u MRA 202012/02/2017 MRA brain [...] gangrene, without long-term current use of insulin ([facility]) Current medications: none Taking medication as directed [...] recent CT scans which were done in [facility]. 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 Lua PACEMAKER 10/2019 PART. HYSTERECTOMY W/WO RMVL OVARIES/TUBES 1974 h/o cervical cancer ovaries remain PAST SURGICAL HISTORY OF 1996 Aortic valve repair, Dr. Apodaca PAST SURGICAL HISTORY OF 2001 [address] Beltrán, [facility] PAST SURGICAL HISTORY OF 2016 clipping and coil for brain aneurysm Social History Tobacco Use Smoking status: Former Packs/day: 0.25 Years: 2.00 Pack years: 0.50 Types: Cigarettes Quit date: 1968 Years since quittin.0 Smokeless tobacco: Never Vaping [...] Colon Skin Cancer Pad (Peripheral Artery Disease) ([facility]) Pedro Aneurysm of Anterior Communicating Artery Stage 3 Chronic Renal Impairment Associated With Type 2 Diabetes Mellitus ([facility]) History of Pulmonary Embolism Ascending Aorta Dilatation ([facility]) Chronic Bilateral Pleural Effusions Colovesical Fistula Right Renal Mass Diverticulitis Large Intestine W/O Perforation Or Abscess W/O Bleeding Renal Cell Carcinoma, Right ([facility]) Iron Deficiency Anemia Hypomagnesemia Gastrointestinal Hemorrhage Associated With Acute Gastritis Esophageal Stenosis Dilated Cardiomyopathy (Hcc) Chronic Systolic Congestive Heart Failure ([facility]) Sss (Sick Sinus Syndrome) ([facility] [facility] Duodenal Ulcer Type 2 Diabetes Mellitus With Diabetic Peripheral Angiopathy Without Gangrene, Without Long-Term Current Use of Insulin ([facility]) Longstanding Persistent Atrial Fibrillation ([facility]) S/P Placement of Cardiac Pacemaker Ckd (Chronic Kidney Disease) Platelet Inhibition Due to Plavix Diverticulosis Lung Nodule, Solitary Red Blood Cell Antibody Positive Iron Deficiency Anemia Secondary to Inadequate Dietary Iron Intake Iron Malabsorption Chronic Renal Failure, Stage 3b ([facility]) Current Outpatient Medications Medication Sig Dispense Refill losartan (COZAAR) 50 mg tablet Take 1 tablet by mouth once daily. 90 tablet 3 metoprolol succinate ER (TOPROL XL) 50 mg 24 hr tablet TAKE 1 TABLET BY MOUTH TWICE A DAY 60 [id number] furosemide (LASIX) 20 mg tablet Take 2 [...] ICD10: I49.5 4. Atrial fibrillation, unspecified type (HCC) - ICD9: 427.31, ICD10: I48.91 5. Presence [...] months Doreen Le PA-C documented in this encounterSycamore [facility] Center11-21-2022 Miscellaneous Notes* Telephone Encounter - Lizeth Du LPN - 05/25/2022 7:25 AM EST Refill not appropriate at this time, according to records there should be at least 2 refills available. documented in this encounterSycamore Medical Center11-10-2022 History of Present illness Narrative* Sonny Lund MD - 05/14/2022 9:28 AM EST PATIENT NAME: Berta Sanches. CLINIC NO: [id number]. ATTENDING PHYSICIAN: Sonny Lund MD. DATE OF SERVICE:05/14/2022. DIAGNOSIS: Iron deficiency anemia HPI: This is a 76-year-old lady with history of atrial fibrillation, prosthetic aortic valve replacement and congestive heart failure who presented to [facility] recently for decompensated heartfailure and severe anemia [...] Abs Lymph 1.00 - 4.00 k/uL 1.81 Sebastian% % 12.6 Abs Sebastian <0.87 k/uL 0.74 Eosin% % 2.2 Abs [...] Cc: Doreen Le PA-C documented in this encounterSycamore Medical Center10-19-2022 Miscellaneous Notes* Telephone Encounter - [...] 06-08-2022. Lizeth Mcknight LPN documented in this encounterSycamore Medical Center10-06-2022 Miscellaneous Notes* Telephone Encounter - Sheree Savage Ma - 04/09/2022 3:32 PM EDT Please schedule CT chest for 3 months. 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 Lua PACEMAKER 10/2019 PART. HYSTERECTOMY W/WO RMVL OVARIES/TUBES 1973 h/o cervical cancer ovaries remain PAST SURGICAL HISTORY OF 1996 Aortic valve repair, Dr. Apodaca PAST SURGICAL HISTORY OF 2001 [address] Beltrán, [facility] PAST SURGICAL HISTORY OF 2015 clipping [...] tremors. PHYSICAL EXAMINATION: VITAL SIGNS: Ht 5' 3.5 (1.61m) Wt 149 lb (67.6kg) BMI 25.98 [...] 74 - 99 mg/dL Final Comment: The [place] [employer] (ADA) provides guidance for cutoff [...] Standards of Medical Care in Diabetes 2016, [place] [employer]. Diabetes Care. 2016.39(Suppl 1). I [...] to errors including those of syntax and sound-alike substitutions which may escape proofreading. In such instances, original meaning may be extrapolated by contextual derivation. documented in this encounterSycamore Medical Center10-05-2022 Miscellaneous Notes* Telephone Encounter - [...] infusions. Ralph Mujica DO documented in this encounterSycamore Medical Center10-03-2022 Instructions* Patient Instructions* Doreen Le PA-C - [...] cup-Beef (cooked) 2 oz-Beet greens (cooked) 1/2 cup-[place] nuts 5 medium-Cereals 1 oz-Chicken (cooked) 3 [...] cup- Tongue 2 oz- Tuna 1/2 cup- Redwood (cooked) 1 oz- Veal (cooked) 1 oz- Watermelon (6x11/2) 1 slice-Wheat Germ 2 tbsp. Iron supplements are absorbed best when taken between meals, with liquids other than milk, coffee, or tea. Taking them at bedtime often helps reduce the chance of nausea. If you can't tolerate daily, try at least three times a week. documented in this encounterSycamore Medical Center10-03-2022 History of Present illness Narrative* Doreen Le PA-C - 04/06/2022 10:20 AM EDT 76 year old female with c/o here for follow hospital Not doing well Very SOB No stamina, very SOB. Mentioned iron infusions. Hospital discharge follow-up Facility [facility] Admission date 03/19/2022 Discharge date 03/22/2022 Pre-hospitalization details: See note 03/19/2022: CHF, EKG AF, hx GIB melena admitted 02/21-02/24/2022 [place]. 03/19/22 Sent from office to [facility] ED: VS [id number]- 98% RA Exam + rales. 2/4+ pitting [...] Abs Lymph 1.00 - 4.00 k/uL 2.09 Sebastian% % 9.6 Abs Sebastian <0.87 k/uL 0.77 Eosin% % 1.9 Abs [...] deficiency anemia Hypomagnesemia SSS (sick sinus syndrome) ([facility]) Type 2 diabetes mellitus with diabetic peripheral angiopathy without gangrene, without long-term current use of insulin (HCC) Longstanding persistent atrial fibrillation ([facility]) S/P placement of cardiac pacemaker CKD (chronic [...] control presents having taken a trip to [place] and having had no control over the food served for the amount of salt in it and had progressive swelling in her legs and then subsequently shortness of breath developing. A right 2.5 cm superior pole the rightkidney mass was found concerning for neoplasm that had been noted as long ago as June 2019. On return to [facility], she had presented to the emergency department [...] Review Reviewed by Walter Bates MD, Ph.D ([id number]) Protein, Total 6.3 - 8.0 g/dL 6.0 [...] 2 weeks for nephrology order is in enrollment specialist FOLLOW-UP: GI in 2 days scheduled, lung nodule clinic to be scheduled, urology to be scheduled, and nephrology in 4 to 6 weeks to be scheduled LABS AND PROCEDURES PENDING AT DISCHARGE: No pending results. INCIDENTAL OR ACTIONABLE FINDING (Last Refresh: 03/22/2022 2:27 PM) Test(s): CT CHEST W IVCON PE FOLLOW-UP APPOINTMENTS ALREADY SCHEDULED WITH A [facility] PROVIDER: Future Appointments Date Time Provider Department Center 03/30/2022 8:40 AM MD MEME Beard 04/14/2022 10:00 AM Albin Gu APRN.CNP [facility] ALLERGIES ALLERGIES Allergen Reactions Protamine Anaphylaxis Had [...] mg by mouth once daily. <span hidden class=[email or web address]></span>Only for 6 months.After that stay on ASA [...] 2-10 mL intravenously as directed. 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 Lua PACEMAKER 10/2019 PART. HYSTERECTOMY W/WO RMVL OVARIES/TUBES 1974 h/o cervical cancer ovaries remain PAST SURGICAL HISTORY OF 1996 Aortic valve repair, Dr. Apodaca PAST SURGICAL HISTORY OF 2001 [address] Beltrán, [facility] PAST SURGICAL HISTORY OF 2015 clipping [...] X (OR/PROCEDURE) PRN Randy Gustafson MD 2 [facility] at 03/03/22 1149 fentaNYL 50 mcg/mL injection (SUBLIMAZE) X (OR/PROCEDURE) PRSondra Gustafson MD 25 mcg at 03/03/22 1211 midazolam (PF) injection (VERSED) X (OR/PROCEDURE) PRSondra Gustafson MD 1 mg at 03/03/22 1211 [...] ICD10: I49.5 6. Atrial fibrillation, unspecified type ([facility]) - ICD9: 427.31, ICD10: I48.91 7. Presence [...] comparison. Doreen Le PA-C documented in this encounterSycamore Medical Center09-26-2022 Miscellaneous Notes* Telephone Encounter - [...] Thanks, Edmund Le PA-C documented in this [facility]09-26-2022 Instructions* Patient Instructions* Carla Burdick MD - 03/30/2022 9:13 AM EDT We are increasing the Toprol (Metoprolol succinate) to 50 mg two times per day We are replacing the Lisinopril with Losartan 25 mg once per day Repeat blood work 7-10 days after starting the Losartan documented in this [facility]09-26-2022 History of Present illness Narrative* Carla Burdick MD - 03/30/2022 8:40 AM EDT Images from the original note were not included. [facility] SECTION OF REGIONAL CARDIOLOGY Cardiology ([facility]) [address] [facility] [id number] OUTPATIENT VISIT DATE 03/30/2022 PRIMARY CARE PHYSICIAN: Doreen Le [address] [place] [address] HISTORY OF PRESENT ILLNESS: Ms. Sanches is a 76 year old woman with a history of remote aortic valve replacement with homograft in 1996 and possible repair of the ascending aorta, hypertension, dyslipidemia, atrial fibrillation with history of pulmonary vein isolation procedures, pacemaker placement recent watchman procedurewho presents for follow-up after hospital admission for congestive heart failure. She had gone on acruise to [place] and developed lower extremity edema and worsening shortness of breath. On return to [place], she had worsening symptoms of weight gain, PND, and orthopnea symptoms. 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 Lua PACEMAKER 10/2019 PART. HYSTERECTOMY W/WO RMVL OVARIES/TUBES 1974 h/o cervical cancer ovaries remain PAST SURGICAL HISTORY OF 1996 Aortic valve repair, Dr. Apodaca PAST SURGICAL HISTORY OF 2001 [address] Beltrán, [facility] PAST SURGICAL HISTORY OF 2015 clipping [...] - Exam was compared with the prior [facility] echocardiographic exam performed on 01/12/2022. 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 Carla Burdick MD documented in this encounterSycamore Medical Center09-17-2022 Miscellaneous Notes* Telephone Encounter - Juan Diego Carroll Jr., MD - 03/21/2022 10:51 AM EDT [facility] Needs appt with [facility] in [place] * Telephone Encounter - Juan Diego Carroll Jr., MD - 03/21/2022 10:51 AM EDT ----- Message from Huy Chauhan MD sent at 03/21/2022 9:11 AM EDT ----- Regarding: Renal mass Thank you Mike. Son documented in this encounterSycamore Medical Center09-16-2022 History of Present illness Narrative* Sheridan Cervantes RN - 03/20/2022 8:22 AM EDT TRANSITION CARE MANAGEMENT (TCM) FOLLOW-UP NOTE Provider Action/FYI Chart reviewed. TCM removed name from TEAMS due to [facility] admission 03/19/22 chf. TCM follow up pending hospital discharge disposition. Summary: Pt discharged from [place] on 02/24. 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 Anemia due to GI blood loss [...] 12/22/2018 Prosthetic aortic valve stenosis 11/19/2016 12/22/2018 medical terminologist current use of antiarrhythmic medical therapy 10/20/2016 [...] diarrhea. Patient had her eyes examined in [place] this year and was told that she [...] of this encounter (statuses as of 03/23/2022) [facility] of Past illness Narrative* [...] get beds in local hospital, transferred to [facility]. Anemia due to GI blood loss [...] 12/22/2018 Prosthetic aortic valve stenosis 11/19/2016 12/22/2018 long-term current use of antiarrhythmic medical therapy 10/20/2016 [...] diarrhea. Patient had her eyes examined in [place] this year and was told that she [...] of this encounter (statuses as of 03/28/2022) [facility] of Past illness Narrative* [...] get beds in local hospital, transferred to [facility]. Anemia due to GI blood loss [...] 12/22/2018 Prosthetic aortic valve stenosis 11/19/2016 12/22/2018 long-term current use of antiarrhythmic medical therapy 10/20/2016 [...] diarrhea. Patient had her eyes examined in [place] this year and was told that she [...] of this encounter (statuses as of 03/30/2022) [facility] Past illness Narrative* [...] get beds in local hospital, transferred to [facility]. Anemia due to GI blood loss [...] 12/22/2018 Prosthetic aortic valve stenosis 11/19/2016 12/22/2018 medical terminologist current use of antiarrhythmic medical therapy 10/20/2016 [...] diarrhea. Patient had her eyes examined in [place] this year and was told that she [...] of this encounter (statuses as of 03/30/2022) [facility] Past illness Narrative* [...] get beds in local hospital, transferred to [facility]. Anemia due to GI blood loss [...] 12/22/2018 Prosthetic aortic valve stenosis 11/19/2016 12/22/2018 long-term current use of antiarrhythmic medical therapy 10/20/2016 [...] diarrhea. Patient had her eyes examined in [place] this year and was told that she [...] of this encounter (statuses as of 04/06/2022) [facility] Past illness Narrative* [...] get beds in local hospital, transferred to [facility]. Anemia due to GI blood loss [...] 12/22/2018 Prosthetic aortic valve stenosis 11/19/2016 12/22/2018 medical terminologist current use of antiarrhythmic medical therapy 10/20/2016 [...] diarrhea. Patient had her eyes examined in [place] this year and was told that she [...] of this encounter (statuses as of 04/07/2022) [facility] Past illness Narrative* [...] get beds in local hospital, transferred to [facility]. Anemia due to GI blood loss [...] 12/22/2018 Prosthetic aortic valve stenosis 11/19/2016 12/22/2018 long-term current use of antiarrhythmic medical therapy 10/20/2016 [...] diarrhea. Patient had her eyes examined in [place] this year and was told that she [...] of this encounter (statuses as of 04/08/2022) [facility] Past illness Narrative* [...] get beds in local hospital, transferred to [facility]. Anemia due to GI blood loss [...] 12/22/2018 Prosthetic aortic valve stenosis 11/19/2016 12/22/2018 long-term current use of antiarrhythmic medical therapy 10/20/2016 [...] diarrhea. Patient had her eyes examined in [place] this year and was told that she [...] of this encounter (statuses as of 04/09/2022) [facility] Past illness Narrative* [...] get beds in local hospital, transferred to [facility]. Anemia due to GI blood loss [...] 12/22/2018 Prosthetic aortic valve stenosis 11/19/2016 12/22/2018 medical terminologist current use of antiarrhythmic medical therapy 10/20/2016 [...] diarrhea. Patient had her eyes examined in [place] this year and was told that she [...] of this encounter (statuses as of 04/17/2022) [facility] Narrative* [...] get beds in local hospital, transferred to [facility]. Anemia due to GI blood loss [...] 12/22/2018 Prosthetic aortic valve stenosis 11/19/2016 12/22/2018 long-term current use of antiarrhythmic medical therapy 10/20/2016 [...] diarrhea. Patient had her eyes examined in [place] this year and was told that she [...] of this encounter (statuses as of 04/20/2022) [facility] Narrative* [...] get beds in local hospital, transferred to [facility]. Anemia due to GI blood loss [...] 12/22/2018 Prosthetic aortic valve stenosis 11/19/2016 12/22/2018 long-term current use of antiarrhythmic medical therapy 10/20/2016 [...] diarrhea. Patient had her eyes examined in [place] this year and was told that she [...] of this encounter (statuses as of 04/22/2022) [facility] Narrative* [...] get beds in local hospital, transferred to [facility]. Anemia due to GI blood loss [...] 12/22/2018 Prosthetic aortic valve stenosis 11/19/2016 12/22/2018 long-term current use of antiarrhythmic medical therapy 10/20/2016 [...] diarrhea. Patient had her eyes examined in [place] this year and was told that she [...] of this encounter (statuses as of 04/23/2022) [facility] Narrative* [...] get beds in local hospital, transferred to [facility]. Anemia due to GI blood loss [...] 12/22/2018 Prosthetic aortic valve stenosis 11/19/2016 12/22/2018 medical terminologist current use of antiarrhythmic medical therapy 10/20/2016 [...] diarrhea. Patient had her eyes examined in [place] this year and was told that she [...] of this encounter (statuses as of 04/28/2022) [facility] Narrative* [...] get beds in local hospital, transferred to [facility]. Anemia due to GI blood loss [...] 12/22/2018 Prosthetic aortic valve stenosis 11/19/2016 12/22/2018 medical terminologist current use of antiarrhythmic medical therapy 10/20/2016 [...] diarrhea. Patient had her eyes examined in [place] this year and was told that she [...] of this encounter (statuses as of 05/15/2022) [facility] Narrative* [...] get beds in local hospital, transferred to [facility]. Anemia due to GI blood loss [...] 12/22/2018 Prosthetic aortic valve stenosis 11/19/2016 12/22/2018 medical terminologist current use of antiarrhythmic medical therapy 10/20/2016 [...] diarrhea. Patient had her eyes examined in [place] this year and was told that she [...] of this encounter (statuses as of 05/25/2022) [facility] Narrative* [...] get beds in local hospital, transferred to [facility]. Anemia due to GI blood loss [...] 12/22/2018 Prosthetic aortic valve stenosis 11/19/2016 12/22/2018 medical terminologist current use of antiarrhythmic medical therapy 10/20/2016 [...] diarrhea. Patient had her eyes examined in [place] this year and was told that she [...] of this encounter (statuses as of 05/29/2022) [facility] Narrative* [...] get beds in local hospital, transferred to [facility]. Anemia due to GI blood loss [...] 12/22/2018 Prosthetic aortic valve stenosis 11/19/2016 12/22/2018 long-term current use of antiarrhythmic medical therapy 10/20/2016 [...] diarrhea. Patient had her eyes examined in [place] this year and was told that she [...] of this encounter (statuses as of 07/06/2022) [facility] Narrative* Problem Noted Date Resolved Date Acute on chronic systolic heart failure 09/03/22/2022 [place]ena 02/22/2022 02/24/2022 Acute kidney injury 02/22/2022 [...] get beds in local hospital, transferred to [facility]. Anemia due to GI blood loss [...] 12/22/2018 Prosthetic aortic valve stenosis 11/19/2016 12/22/2018 long-term current use of antiarrhythmic medical therapy 10/20/2016 [...] diarrhea. Patient had her eyes examined in [place] this year and was told that she [...] of this encounter (statuses as of 07/09/2022) [facility] Narrative* [...] get beds in local hospital, transferred to [facility]. Anemia due to GI blood loss [...] 12/22/2018 Prosthetic aortic valve stenosis 11/19/2016 12/22/2018 long-term current use of antiarrhythmic medical therapy 10/20/2016 [...] diarrhea. Patient had her eyes examined in [place] this year and was told that she [...] of this encounter (statuses as of 07/22/2022) [facility] Narrative* [...] get beds in local hospital, transferred to [facility]. Anemia due to GI blood loss [...] 12/22/2018 Prosthetic aortic valve stenosis 11/19/2016 12/22/2018 long-term current use of antiarrhythmic medical therapy 10/20/2016 [...] diarrhea. Patient had her eyes examined in [place] this year and was told that she [...] of this encounter (statuses as of 07/22/2022) [facility] Narrative* [...] get beds in local hospital, transferred to [facility]. Anemia due to GI blood loss [...] 12/22/2018 Prosthetic aortic valve stenosis 11/19/2016 12/22/2018 long-term current use of antiarrhythmic medical therapy 10/20/2016 [...] diarrhea. Patient had her eyes examined in [place] this year and was told that she [...] of this encounter (statuses as of 09/01/2022) [facility] Narrative* [...] get beds in local hospital, transferred to [facility]. Anemia due to GI blood loss [...] 12/22/2018 Prosthetic aortic valve stenosis 11/19/2016 12/22/2018 long-term current use of antiarrhythmic medical therapy 10/20/2016 [...] diarrhea. Patient had her eyes examined in [place] this year and was told that she [...] of this encounter (statuses as of 09/27/2022) [facility] Narrative* [...] get beds in local hospital, transferred to [facility]. Anemia due to GI blood loss [...] 12/22/2018 Prosthetic aortic valve stenosis 11/19/2016 12/22/2018 medical terminologist current use of antiarrhythmic medical therapy 10/20/2016 [...] diarrhea. Patient had her eyes examined in [place] this year and was told that she [...] of this encounter (statuses as of 09/28/2022) [facility] Narrative* [...] get beds in local hospital, transferred to [facility]. Anemia due to GI blood loss [...] 12/22/2018 Prosthetic aortic valve stenosis 11/19/2016 12/22/2018 medical terminologist current use of antiarrhythmic medical therapy 10/20/2016 [...] diarrhea. Patient had her eyes examined in [place] this year and was told that she [...] of this encounter (statuses as of 09/29/2022) [facility] Narrative* [...] get beds in local hospital, transferred to [facility]. Anemia due to GI blood loss [...] 12/22/2018 Prosthetic aortic valve stenosis 11/19/2016 12/22/2018 long-term current use of antiarrhythmic medical therapy 10/20/2016 [...] diarrhea. Patient had her eyes examined in [place] this year and was told that she [...] of this encounter (statuses as of 10/07/2022) [facility] Narrative* [...] get beds in local hospital, transferred to [facility]. Anemia due to GI blood loss [...] 12/22/2018 Prosthetic aortic valve stenosis 11/19/2016 12/22/2018 medical terminologist current use of antiarrhythmic medical therapy 10/20/2016 [...] diarrhea. Patient had her eyes examined in [place] this year and was told that she [...] of this encounter (statuses as of 12/29/2022) [facility] Narrative* [...] get beds in local hospital, transferred to [facility]. 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 Patient had her eyes examined in [place] this year and was told that she [...] of this encounter (statuses as of 01/09/2023) [facility] Narrative* [...] get beds in local hospital, transferred to [facility]. Anemia due to GI blood loss [...] 12/22/2018 Prosthetic aortic valve stenosis 11/19/2016 12/22/2018 medical terminologist current use of ant iarrhythmic medical therapy [...] diarrhea. Patient had her eyes examined in [place] this year and was told that she [...] of this encounter (statuses as of 01/28/2023) [facility] History of Past illness Narrative* [...] get beds in local hospital, transferred to [facility]. Anemia due to GI blood loss [...] 12/22/2018 Prosthetic aortic valve stenosis 11/19/2016 12/22/2018 medical terminologist current use of ant iarrhythmic medical therapy [...] diarrhea. Patient had her eyes examined in [place] this year and was told that she [...] of this encounter (statuses as of 03/15/2023) [facility] History of Past illness Narrative* [...] get beds in local hospital, transferred to [facility]. Anemia due to GI blood loss [...] 12/22/2018 Prosthetic aortic valve stenosis 11/19/2016 12/22/2018 medical terminologist current use of ant iarrhythmic medical therapy [...] diarrhea. Patient had her eyes examined in [place] this year and was told that she [...] of this encounter (statuses as of 03/28/2023) [facility] History of Past illness Narrative* [...] get beds in local hospital, transferred to [facility]. 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 Patient had her eyes examined in [place] this year and was told that she [...] of this encounter (statuses as of 05/07/2023) [facility] History of Past illness Narrative* [...] get beds in local hospital, transferred to [facility]. 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 Patient had her eyes examined in [place] this year and was told that she [...] of this encounter (statuses as of 05/07/2023) [facility] History of Past illness Narrative* [...] get beds in local hospital, transferred to [facility]. Anemia due to GI blood loss [...] 12/22/2018 Prosthetic aortic valve stenosis 11/19/2016 12/22/2018 medical terminologist current use of ant iarrhythmic medical therapy [...] diarrhea. Patient had her eyes examined in [place] this year and was told that she [...] of this encounter (statuses as of 05/21/2023) [facility] of Past illness Narrative* [...] get beds in local hospital, transferred to [facility]. Anemia due to GI blood loss [...] 12/22/2018 Prosthetic aortic valve stenosis 11/19/2016 12/22/2018 medical terminologist current use of ant iarrhythmic medical therapy [...] diarrhea. Patient had her eyes examined in [place] this year and was told that she [...] of this encounter (statuses as of 06/08/2023) [facility] History of Past illness Narrative* [...] get beds in local hospital, transferred to [facility]. Anemia due to GI blood loss [...] 12/22/2018 Prosthetic aortic valve stenosis 11/19/2016 12/22/2018 medical terminologist current use of ant iarrhythmic medical therapy [...] diarrhea. Patient had her eyes examined in [place] this year and was told that she [...] of this encounter (statuses as of 07/05/2023) [facility] History of Past illness Narrative* [...] get beds in local hospital, transferred to [facility]. 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 Patient had her eyes examined in [place] this year and was told that she [...] of this encounter (statuses as of 10/15/2023) [facility] History of Past illness Narrative* [...] get beds in local hospital, transferred to [facility]. 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 Patient had her eyes examined in [place] this year and was told that she [...] of this encounter (statuses as of 10/16/2023) [facility] History of Past illness Narrative* [...] get beds in local hospital, transferred to [facility]. 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 Patient had her eyes examined in [place] this year and was told that she [...] of this encounter (statuses as of 10/21/2023) [facility] History of Present illness Narrative* M Claudia Le PA-C - 03/19/2022 10:40 AM EDT [...] warm, heavy No pain. Got back from [place] 2am this morning Able to lay supine. 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 Lua PACEMAKER 10/2019 PART. HYSTERECTOMY W/WO RMVL OVARIES/TUBES 1974 h/o cervical cancer ovaries remain PAST SURGICAL HISTORY OF 1996 Aortic valve repair, Dr. Apodaca PAST SURGICAL HISTORY OF 2001 [address] Beltrán, [facility] PAST SURGICAL HISTORY OF 2015 clipping [...] lidocaine viscous 2 % (XYLOCAINE) X (OR/PROCEDURE) PRSondra Gustafson MD 15 mL at 03/03/22 1149 benzocaine 20% (TOPEX) X (OR/PROCEDURE) PRSondra Gustafson MD 2 [facility] at 03/03/22 1149 fentaNYL 50 mcg/mL injection (SUBLIMAZE) X (OR/PROCEDURE) PRSondra Gustafson MD 25 mcg at 03/03/22 1211 midazolam (PF) injection (VERSED) X (OR/PROCEDURE) PRSondra Gustafson MD 1 mg at 03/03/22 1211 [...] <130/80 Doreen Le PA-C documented in this encounterSy[facility] History of Present illness Narrative* Sheridan Cervantes RN - 03/05/2022 12:39 PM EDT TRANSITION CARE MANAGEMENT (TCM) FOLLOW-UP NOTE Provider Action/I Chart reviewed, TCM follow up call deferred due to 03/03 office visit with JASPREET Torres. Summary: Pt discharged from [place] on 02/24. Admitted for: PRINCIPAL DIAGNOSIS: GI bleeding diverticular bleed/acute blood loss anemia [employer] Equipment Operator plan for next outreach: Will follow up Signature Sheridan Cervantes RN March 05, 2022 documented in this encounterSycam[facility] Center08-[facility]22 Miscellaneous Notes* Addendum Note - Radha Torres APRN.CNP - 03/04/2022 10:54 AM EDTAddended by: RADHA TORRES on: 03/04/2022 10:54 AM Modules accepted: Orders, SmartSet * Addendum Note - Radha Torres APRN.CNP - 03/04/2022 9:46 AM EDTAddended by: RADHA TORRES on: 03/04/2022 09:46 AM Modules accepted: Orders documented in this encounterSycamore [facility] Center08-30-2022 History of Present illness Narrative* Radha Torres APRN.CNP - 03/03/2022 12:00 PM EDT Images from the original note were not included. [facility] Department of Cardiovascular Medicine SECTION OF CARDIAC PACING and ELECTROPHYSIOLOGY OUTPATIENT VISIT DATE March 03, 2022 OUTPATIENT VISIT TYPE ESTABLISHED PRIMARY CARE PHYSICIAN: Doreen Le [address] [place] [address] CHIEF COMPLAINT: Post Watchman follow up HISTORY [...] upper and lower endoscopy were non diagnostic. 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 Lua PACEMAKER 10/2019 PART. HYSTERECTOMY W/WO RMVL OVARIES/TUBES 1974 h/o cervical cancer ovaries remain PAST SURGICAL HISTORY OF 1996 Aortic valve repair, Dr. Apodaca PAST SURGICAL HISTORY OF 2001 [address] Beltrán, [facility] PAST SURGICAL HISTORY OF 2015 clipping [...] 141/72 Pulse 98 Ht 160 cm (5' 3) Wt 63.5 kg (140 lb) BMI 24.80 [...] yearly in-clinic device checks. Ying Hart RN [place] to Dr. Fay in Dr. Gomez's absence [...] assess as well. - The following is specialty sales representative of measurements of LAXMI dimensions [...] FOR LVH, MAY BE NORMAL VARIANT ( [place] product ) ABNORMAL ECG ABDIEL: CONCLUSIONS: - [...] upper and lower endoscopy were non diagnostic. [id number] score: 7 (congestive heart failure, hypertension, age [...] discussed. Rx for Plavix sent in to [facility]. Follow up advised with Dr. Washington to be scheduled. ABDIEL at 1 year from the Watchman procedure, around 01/12/2023. CONTACT INFORMATION: Radha Torers APRN.CNP documented in this encounterSycamore Medical Center08-30-2022 Nurse Note* Alexandre Avalos RN [...] RN In Department: CARDIOLOGY documented in this encounterSycamore Medical Center08-29-2022 Miscellaneous Notes* Telephone Encounter - [...] In Department of CARDIOLOGY. documented in this encounterSycamore Medical Center08-24-2022 History of Present illness Narrative* Harika Tomas RN - 02/25/2022 2:27 PM EDT TCM Home Visit Referral Source of Stratification: [facility] Admission Status: Discharged Readmission Risk Score: 18 [...] PROGRAM Provider Action/FYI: SUMMARY: Pt discharged from [place] on 02/24. Admitted for: PRINCIPAL DIAGNOSIS: GI bleeding diverticular bleed/acute blood loss anemia Contact made with patient: No - 2nd unsuccessful attempt - end outreach and close encounter Outreach ended Harika Tomas RN BSN [facility] [phone] * Harika Tomas RN - 02/25/2022 10:14 AM EDT TCM Home Visit Referral Source of Stratification: [facility] Admission Status: Discharged Readmission Risk Score: 18 [...] today or tomorrow SUMMARY: Pt discharged from [place] on 02/24. Admitted for: PRINCIPAL DIAGNOSIS: GI bleeding diverticular bleed/acute blood loss anemia Contact made with patient: No - next outreach attempt will be on next day Outreach ended Harika Tomas RN BSN [facility] [phone] documented in this encounterSycamore Medical Center08-[facility]-2022 History of Past illness Narrative* [...] get beds in local hospital, transferred to [facility]. Anemia 10/24/2019 09/12/2021 Last Assessment & [...] 12/22/2018 Prosthetic aortic valve stenosis 11/19/2016 12/22/2018 medical terminologist current use of antiarrhythmic medical therapy 10/20/2016 [...] diarrhea. Patient had her eyes examined in [place] this year and was told that she [...] of this encounter (statuses as of 02/25/2022) [facility] History of Past illness Narrative* [...] get beds in local hospital, transferred to [facility]. Anemia 10/24/2019 09/12/2021 Last Assessment & [...] 12/22/2018 Prosthetic aortic valve stenosis 11/19/2016 12/22/2018 medical terminologist current use of antiarrhythmic medical therapy 10/20/2016 [...] diarrhea. Patient had her eyes examined in [place] this year and was told that she [...] of this encounter (statuses as of 03/02/2022) [facility] History of Past illness Narrative* [...] get beds in local hospital, transferred to [facility]. Anemia 10/24/2019 09/12/2021 Last Assessment & [...] 12/22/2018 Prosthetic aortic valve stenosis 11/19/2016 12/22/2018 long-term current use of antiarrhythmic medical therapy 10/20/2016 [...] diarrhea. Patient had her eyes examined in [place] this year and was told that she [...] of this encounter (statuses as of 03/03/2022) [facility] History of Past illness Narrative* [...] get beds in local hospital, transferred to [facility]. Anemia 10/24/2019 09/12/2021 Last Assessment & [...] 12/22/2018 Prosthetic aortic valve stenosis 11/19/2016 12/22/2018 long-term current use of antiarrhythmic medical therapy 10/20/2016 [...] diarrhea. Patient had her eyes examined in [place] this year and was told that she [...] of this encounter (statuses as of 03/04/2022) [facility] of Past illness Narrative* [...] get beds in local hospital, transferred to [facility]. Anemia 10/24/2019 09/12/2021 Last Assessment & [...] 12/22/2018 Prosthetic aortic valve stenosis 11/19/2016 12/22/2018 long-term current use of antiarrhythmic medical therapy 10/20/2016 [...] diarrhea. Patient had her eyes examined in [place] this year and was told that she [...] of this encounter (statuses as of 03/05/2022) [facility] History of Past illness Narrative* [...] get beds in local hospital, transferred to [facility]. Anemia 10/24/2019 09/12/2021 Last Assessment & [...] 12/22/2018 Prosthetic aortic valve stenosis 11/19/2016 12/22/2018 long-term current use of antiarrhythmic medical therapy 10/20/2016 [...] diarrhea. Patient had her eyes examined in [place] this year and was told that she [...] of this encounter (statuses as of 03/11/2022) [facility] History of Past illness Narrative* [...] get beds in local hospital, transferred to [facility]. Anemia 10/24/2019 09/12/2021 Last Assessment & [...] 12/22/2018 Prosthetic aortic valve stenosis 11/19/2016 12/22/2018 long-term current use of antiarrhythmic medical therapy 10/20/2016 [...] diarrhea. Patient had her eyes examined in [place] this year and was told that she [...] of this encounter (statuses as of 03/20/2022) [facility] History of Past illness Narrative* [...] get beds in local hospital, transferred to [facility]. Anemia 10/24/2019 09/12/2021 Last Assessment & [...] 12/22/2018 Prosthetic aortic valve stenosis 11/19/2016 12/22/2018 medical terminologist current use of antiarrhythmic medical therapy 10/20/2016 [...] diarrhea. Patient had her eyes examined in [place] this year and was told that she [...] of this encounter (statuses as of 03/20/2022) [facility] History of Past illness Narrative* [...] get beds in local hospital, transferred to [facility]. Renal cell carcinoma 10/24/2019 09/12/2021 Last [...] 12/22/2018 Prosthetic aortic valve stenosis 11/19/2016 12/22/2018 long-term current use of antiarrhythmic medical therapy 10/20/2016 [...] diarrhea. Patient had her eyes examined in [place] this year and was told that she [...] of this encounter (statuses as of 03/21/2022) [facility] Miscellaneous Notes* Telephone Encounter - Rojelio Jamison [...] testing. Giovanna Powell RN documented in this encounterSycamore Medical Center08-19-2022 History of Present illness Narrative* Doreen Le PA-C - 02/20/2022 9:40 AM EDT 76 year old female with c/o here for acute visit Diarrhea in evenings over last 2 weeks. Maybe a little mild abdominal discomfort but not painful. Denies N/V/ heart burn, reflux. Appetite is okay. Bright red blood last 3-4 at first red in toilet and on tissue, this morning was bright red with some maroon Expresses concern about taking ASA with Xarelto, also has read about diverticular bleeding Has felt low energy, slightly weaker. No syncopal sx. Watchman 45 day period not over until 03/23/2022- anxious about potential risk of having to [employer] with family. 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 Lua PACEMAKER 10/2019 PART. HYSTERECTOMY W/WO RMVL OVARIES/TUBES 1973 h/o cervical cancer ovaries remain PAST SURGICAL HISTORY OF 1996 Aortic valve repair, Dr. Apodaca PAST SURGICAL HISTORY OF 2001 [address] Beltrán, [facility] PAST SURGICAL HISTORY OF 2016 clipping [...] PNL Doreen Le PA-C documented in this encounterSycamore Medical Center07-20-2022 Miscellaneous Notes* Telephone Encounter - Deonna Manny - 01/21/2022 10:30 AM EDT January 21, 2022 Patient Contact Number: [phone] (home) [phone] (cell) Patient last seen within the last year: Yes Reason for Call: Patient called to schedule follow up from Watchman procedure. Order for ABDIEL needs to be placed (can be done by BRAND STRATEGY MANAGER) and patient should contact office as soon as ABDIEL is done so it can be reviewed (should be done 45 days after the procedure). BRAND STRATEGY MANAGER: Please place Order for ABDIEL. Admin to request ABDIEL for after 02/26/2022 but before 03/07/2022. Thank you, Deonna Bryant, Marisol documented in this encounterSycamore Medical Center07-18-2022 Miscellaneous Notes* Telephone Encounter - Ivory Carrion Adm - 01/19/2022 11:05 AM EDT Call from pharmacy requesting refill. Pending Prescriptions Disp Refills ASPIRIN 81 MG CHEWABLE TABLET 90 tablet 3 Sig: Take 1 tablet by mouth once daily. BRAYAN: No Patient last seen 01/09/2022 Ivory Rossishirley Adm documented in this encounterSycamore Medical Center07-15-2022 Instructions* Patient Instructions* Doreen Le [...] keep your stress under control. Published by [employer]. This content is reviewed periodically and is subject to change as new health information becomes available. The information is intended to inform and educate and is not a replacement for medical evaluation, advice, diagnosis or treatment by a healthcare professional. Developed by [employer]. Copyright 2005 [employer] and/or one of its subsidiaries. All Rights Reserved. 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 Lua PACEMAKER 10/2019 PART. HYSTERECTOMY W/WO RMVL OVARIES/TUBES 1973 h/o cervical cancer ovaries remain PAST SURGICAL HISTORY OF 1996 Aortic valve repair, Dr. Apodaca PAST SURGICAL HISTORY OF 2001 [address] Beltrán, 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 ([facility]) History of Pulmonary Embolism Ascending Aorta Dilatation ([facility]) Chronic Bilateral Pleural Effusions Colovesical Fistula Renal Mass, Right Diverticulitis Large Intestine W/O Perforation Or Abscess W/O Bleeding Renal Cell Carcinoma, Right ([facility]) Iron Deficiency Anemia Hypomagnesemia Gastrointestinal Hemorrhage Associated With Acute Gastritis Esophageal Stenosis Dilated Cardiomyopathy ([facility]) Chronic Diastolic Congestive Heart Failure ([facility]) Sss (Sick Sinus Syndrome) ([facility]) Duodenal Ulcer Type 2 Diabetes Mellitus With Diabetic Peripheral Angiopathy Without Gangrene, Without Long-Term Current Use of Insulin ([facility]) Atrial Fibrillation ([facility]) Current Outpatient Medications Medication Sig Dispense Refill [...] Resp 16 Wt 64.4 kg (142 lb) EkM523% BMI 25.15 kg/m Pleasant frail adult womanin [...] OINTMENT Doreen Le PA-C documented in this encounterSycamore Medical Center07-08-2022 History of Present illness Narrative* [...] discussed with Physician, nurse practitioner or Physician housing assistant upon discharge Instructions for transmitting EKG to Monitoring Center 3 month follow up instructions Contact number for information and questions Patient Evaluation: Verbalizes understanding Follow Up Plan: Follow up as directed by MD. Supplemental Material Given: Written Material Patient education regarding radiation exposure. Instructed By Diane Blanchard RN. In Department of CARDIOLOGY. documented in this encounterSycamore Medical Center07-08-2022 Instructions* Patient Instructions* Emilia Diallo MD - 01/09/2022 2:19 PM EDT Proceed with your Watchman evaluation. Consider discussing a hematology evaluation in addition to further GI work up as appropriate. Follow up with Dr. Burdick as planned. Follow up with PCP re: prevention in addition to follow up of the kidney mass that was identified on the CT. documented in this encounterSycamore Medical Center07-08-2022 History of Present illness Narrative* Emilia Diallo MD - 01/09/2022 2:15 PM EDT Images from the original note were not included. [facility] Department of Cardiovascular Medicine SECTION OF CLINICAL CARDIOLOGY OUTPATIENT VISIT DATE January 09, 2022 OUTPATIENT VISIT TYPE CON PRIMARY CARE PHYSICIAN: Doreen Le [address] [place] [address] REFERRING PHYSICIAN: Chandler Swan [address] [facility] [address] CHIEF COMPLAINT: Shared decision making for Watchman [...] has subsided and her blood counts have improved. Plan for Watchman. She is on Xarelto. Her hgb dropped further 10.9--> 7.7. Received 2 unit(s) PRBCs last week. [id number] score: 7 (congestive heart failure, hypertension, age >/=75, diabetes, vascular disease, female) - on Xarelto 15 mg HASBLED score: 4 (HTN, CKD, bleeding, elderly) She complains of chronic shortness of breath and fatigue. She denies chest pain, orthopnea, cough, edema, palpitations, PND, lightheadedness or syncope. Nursing Intake : Ms. 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 Lua 10/2019: PACEMAKER 1974: PART. HYSTERECTOMY W/WO RMVL OVARIES/TUBES Comment: h/o cervical cancer ovaries remain 1996: PAST SURGICAL HISTORY OF Comment: Aortic valve repair, Dr. Apodaca 2001: PAST SURGICAL HISTORY OF Comment: [address] Beltrán, [facility] 2016: PAST SURGICAL HISTORY OF Comment: [...] Abs Lymph 1.00 - 4.00 k/uL 1.82 Sebastian% % 14.0 Abs Sebastian <0.87 k/uL 1.27 (H) Eosin% % 1.9 [...] etiology while on Xarelto. Unknown etiology. Her [id number] is elevated at 7 portenidng an increased risk of CVA and her HASBLED score is elevated. It is reasonable to consider Watchman procedure as after undergoing a LAXMI closure procedure, she will not need senior care anticoagulation which eliminates anticoagulation side effects and major bleeding risk. After today's visit with Mrs. Sanches, which was dedicated solely for shared decision making visitregarding LAXMI closure device, she decided to proceed with the LAXMI appendage closure procedure scheduled to be done in the near future at [facility]. Of note, she should continue [...] 09, 2022, 5:59 PM documented in this encounterSycamore Medical Center07-01-2022 History and physical note * [...] likely gallbladder issues. When she presented to [facility] department on February 13, 2018 she [...] and notes resolution of her epigastric pain eBrta has undergone prior endoscopy. 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 Lua PACEMAKER 10/2019 PART. HYSTERECTOMY W/WO RMVL OVARIES/TUBES 1974 h/o cervical cancer ovaries remain PAST SURGICAL HISTORY OF 1996 Aortic valve repair, Dr. Apodaca PAST SURGICAL HISTORY OF 2001 [address] Beltrán, [facility] PAST SURGICAL HISTORY OF 2015 clipping [...] entered by the nurse and reviewed by ma Nursing Notes: Stacie Mancera LPN 01/01/2022 9:48 [...] C (89 F), height 160 cm (5' 3), weight 65.8 kg (145 lb), SpO2 98 [...] her for urgent upper endoscopy tomorrow in [place]. Diagnoses: (D50.0) Anemia, blood loss (primary encounter [...] needed. Chai Encinas MD documented in this encounterSycam[facility] Center06-30-2022 Miscellaneous Notes* Telephone Encounter - Yessenia Mabel - 01/01/2022 10:27 AM EDT 01-02-2022 egd reyes documented in this encounterSycamore Medical Center06-30-2022 History of Present illness Narrative* [...] likely gallbladder issues. 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 Lua PACEMAKER 10/2019 PART. HYSTERECTOMY W/WO RMVL OVARIES/TUBES 1974 h/o cervical cancer ovaries remain PAST SURGICAL HISTORY OF 1996 Aortic valve repair, Dr. Apodaca PAST SURGICAL HISTORY OF 2001 [address] Beltrán, [facility] PAST SURGICAL HISTORY OF 2015 clipping [...] entered by the nurse and reviewed by ma Nursing Notes: Stacie Mancera LPN 01/01/2022 9:48 [...] C (89 F), height 160 cm (5' 3), weight 65.8 kg (145 lb), SpO2 98 [...] her for urgent upper endoscopy tomorrow in [place]. Diagnoses: (D50.0) Anemia, blood loss (primary encounter [...] needed. Chai Encinas MD documented in this encounterSycamore Medical Center06-30-2022 Nurse Note* Stacie FiordalizaGOPI - 01/01/2022 9:46 AM EDT REVIEW OF [...] 2019 Stacie Mancera LPN documented in this encounterSycamore Medical Center06-27-2022 Miscellaneous Notes* Telephone Encounter - M Claudia Le PA-C - 12/29/2021 4:19 PM EDT Thanks for the help! Doreen Le PA-C * Telephone Encounter - Sheree Savage Ma - 12/29/2021 3:57 PM EDT Patient is scheduled for for transfusion of 2 units packed red blood cells at [facility] for 8 am tomorrow. Patient has been notified and will stop by tonight to get type and cross. documented in this encounterSycamore Medical Center06-25-2022 Miscellaneous Notes* Telephone Encounter - [...] days she will go to [facility] ED. Reason for Disposition [1] MILD [...] MEDICINES: Increase in Xarelto 6. OTHER SYMPTOMS: Do you have any other symptoms? (e.g., chest pain, fever, cough, SOB, vomiting, diarrhea, bleeding, other areas of pain) No chest pain, fever ,cough, SOB, vomiting. No diarrhea since yesterday. No nausea since yesterday. Protocols used: WEAKNESS (GENERALIZED) AND [id number] documented in this encounterSycamore Medical Center06-25-2022 Miscellaneous Notes* Telephone Encounter - Radha Pyle RN - 12/27/2021 9:57 AM EDT Triage completed 12/27 for MC symptoms. See triage encounter. Radha Pyle RN documented in this encounterSycamore Medical Center06-23-2022 Miscellaneous Notes* Telephone Encounter - [...] EDT December 25, 2021 Patient Contact Number: [phone] (home) [phone] (cell) Patient last seen within the last year: Yes Reason for Call: Medication Issue/Question: Patient states that she is supposed to decrease medication in preparation of surgery in two weeks, but she is having symptoms and is having difficulty tolorating. Thank you, Deonna Bryant, Admin documented in this encounterSycamore Medical Center06-20-2022 Miscellaneous Notes* Telephone Encounter - [...] need schedules to follow. documented in this encounterSycamore Medical Center06-13-2022 History of Present illness Narrative* [...] 15, 2021 11:04 AM documented in this encounterSycamore Medical Center06-13-2022 History of Present illness Narrative* Doreen Le [...] bilateral inflow resting waveforms. 11/26/2021 f/u vascular BRAND STRATEGY MANAGER Na Ramirez 10/24/2018 US carotids: RIGHT: CCA plaques w/o significant hemodynamic stenosis, ICA 20-39%, VA patent w/antegrade. LEFT: CCA plaque w/o significant hemodynamic stenosis, HEX51-36%%, VA patent w/antegrade, SA clear 12/02/2017 MRI/ [...] bowels regular Current symptoms: none, stomach is wonderful. 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 Lua PACEMAKER 10/2019 PART. HYSTERECTOMY W/WO RMVL OVARIES/TUBES 1974 h/o cervical cancer ovaries remain PAST SURGICAL HISTORY OF 1996 Aortic valve repair, Dr. Apodaca PAST SURGICAL HISTORY OF 2001 [address] Beltrán, [facility] PAST SURGICAL HISTORY OF 2016 clipping [...] bruits. No JVD with HOB at 30 degrees.\ Chest is normal shape. Lungs are clear [...] LEFT Doreen Le PA-C documented in this encounterSycamore Medical Center06-02-2022 Miscellaneous Notes* Telephone Encounter - [...] EDT December 03, 2021 Patient Contact Number: [phone] (home) [phone] (cell) Patient last seen within the last [...] you, Deonna Bryant, Admin documented in this encounterSycamore Medical Center05-26-2022 History of Present illness Narrative* Dagmar Thomas - 11/27/2021 12:36 PM EDT set documented in this encounterSycamore Medical Center05-25-2022 History of Present illness Narrative* 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 Lua PACEMAKER 10/2019 PART. HYSTERECTOMY W/WO RMVL OVARIES/TUBES 1973 h/o cervical cancer ovaries remain PAST SURGICAL HISTORY OF 1996 Aortic valve repair, Dr. Apodaca PAST SURGICAL HISTORY OF 2001 [address] Beltrán, [facility] PAST SURGICAL HISTORY OF 2015 clipping [...] Known Allergies OBJECTIVE Ht 160 cm (5' 3) Wt 65.8 kg (145 lb) BMI 25.69 [...] ambulation Time spent: 45 documented in this encounterSycamore Medical Center04-20-2022 Miscellaneous Notes* Telephone Encounter - Marycruz Olguin [...] encounter? yes Marycruz Olguin documented in this encounterSycamore Medical Center03-24-2022 Miscellaneous Notes* Telephone Encounter - Sigifredo Monge - 09/25/2021 4:57 PM EDT patient cancelled as requested. patient has cardiac procedures coming up in January. Patient stated she is feeling better at this time. patient will call and reschedule if her symptoms returns. * Telephone Encounter - Mrailyn Gracia Pss - 09/24/2021 1:40 PM EDT Patient is out of town and needs to cancel the procedure on 09/29 in [place]. She thought this was cancelled about a month ago when she received a call. She stated she is so sorry. documented in this encounterSycamore Medical Center03-22-2022 Miscellaneous Notes* Telephone Encounter - [...] procedure. Patient stated understanding. documented in this encounterSycamore Medical Center08-14-2021 History of Past illness Narrative* [...] get beds in local hospital, transferred to [facility]. Anemia 10/24/2019 09/12/2021 Last Assessment & [...] 12/22/2018 Prosthetic aortic valve stenosis 11/19/2016 12/22/2018 medical terminologist current use of antiarrhythmic medical therapy 10/20/2016 [...] diarrhea. Patient had her eyes examined in [place] this year and was told that she [...] of this encounter (statuses as of 09/23/2021) [facility] of Past illness Narrative* [...] get beds in local hospital, transferred to [facility]. Anemia 10/24/2019 09/12/2021 Last Assessment & [...] 12/22/2018 Prosthetic aortic valve stenosis 11/19/2016 12/22/2018 medical terminologist current use of antiarrhythmic medical therapy 10/20/2016 [...] diarrhea. Patient had her eyes examined in [place] this year and was told that she [...] of this encounter (statuses as of 09/26/2021) [facility] of Past illness Narrative* [...] get beds in local hospital, transferred to [facility]. Anemia 10/24/2019 09/12/2021 Last Assessment & [...] 12/22/2018 Prosthetic aortic valve stenosis 11/19/2016 12/22/2018 medical terminologist current use of antiarrhythmic medical therapy 10/20/2016 [...] diarrhea. Patient had her eyes examined in [place] this year and was told that she [...] of this encounter (statuses as of 10/22/2021) [facility] of Past illness Narrative* [...] get beds in local hospital, transferred to [facility]. Anemia 10/24/2019 09/12/2021 Last Assessment & [...] 12/22/2018 Prosthetic aortic valve stenosis 11/19/2016 12/22/2018 long-term current use of antiarrhythmic medical therapy 10/20/2016 [...] diarrhea. Patient had her eyes examined in [place] this year and was told that she [...] of this encounter (statuses as of 11/17/2021) [facility] of Past illness Narrative* [...] get beds in local hospital, transferred to [facility]. Anemia 10/24/2019 09/12/2021 Last Assessment & [...] 12/22/2018 Prosthetic aortic valve stenosis 11/19/2016 12/22/2018 medical terminologist current use of antiarrhythmic medical therapy 10/20/2016 [...] diarrhea. Patient had her eyes examined in [place] this year and was told that she [...] of this encounter (statuses as of 11/27/2021) [facility] of Past illness Narrative* [...] get beds in local hospital, transferred to [facility]. Anemia 10/24/2019 09/12/2021 Last Assessment & [...] 12/22/2018 Prosthetic aortic valve stenosis 11/19/2016 12/22/2018 long-term current use of antiarrhythmic medical therapy 10/20/2016 [...] diarrhea. Patient had her eyes examined in [place] this year and was told that she [...] of this encounter (statuses as of 11/27/2021) [facility] of Past illness Narrative* [...] get beds in local hospital, transferred to [facility]. Anemia 10/24/2019 09/12/2021 Last Assessment & [...] 12/22/2018 Prosthetic aortic valve stenosis 11/19/2016 12/22/2018 long-term current use of antiarrhythmic medical therapy 10/20/2016 [...] diarrhea. Patient had her eyes examined in [place] this year and was told that she [...] of this encounter (statuses as of 12/04/2021) [facility] Past illness Narrative* [...] get beds in local hospital, transferred to [facility]. Anemia 10/24/2019 09/12/2021 Last Assessment & [...] 12/22/2018 Prosthetic aortic valve stenosis 11/19/2016 12/22/2018 medical terminologist current use of antiarrhythmic medical therapy 10/20/2016 [...] diarrhea. Patient had her eyes examined in [place] this year and was told that she [...] of this encounter (statuses as of 12/04/2021) [facility] of [facility] illness Narrative* [...] get beds in local hospital, transferred to [facility]. Anemia 10/24/2019 09/12/2021 Last Assessment & [...] 12/22/2018 Prosthetic aortic valve stenosis 11/19/2016 12/22/2018 medical terminologist current use of antiarrhythmic medical therapy 10/20/2016 [...] diarrhea. Patient had her eyes examined in [place] this year and was told that she [...] of this encounter (statuses as of 12/13/2021) [facility] illness Narrative* [...] get beds in local hospital, transferred to [facility]. Anemia 10/24/2019 09/12/2021 Last Assessment & [...] 12/22/2018 Prosthetic aortic valve stenosis 11/19/2016 12/22/2018 medical terminologist current use of antiarrhythmic medical therapy 10/20/2016 [...] diarrhea. Patient had her eyes examined in [place] this year and was told that she [...] of this encounter (statuses as of 12/15/2021) [facility] Narrative* [...] get beds in local hospital, transferred to [facility]. Anemia 10/24/2019 09/12/2021 Last Assessment & [...] 12/22/2018 Prosthetic aortic valve stenosis 11/19/2016 12/22/2018 long-term current use of antiarrhythmic medical therapy 10/20/2016 [...] diarrhea. Patient had her eyes examined in [place] this year and was told that she [...] of this encounter (statuses as of 12/25/2021) [facility] illness Narrative* [...] get beds in local hospital, transferred to [facility]. Anemia 10/24/2019 09/12/2021 Last Assessment & [...] 12/22/2018 Prosthetic aortic valve stenosis 11/19/2016 12/22/2018 long-term current use of antiarrhythmic medical therapy 10/20/2016 [...] diarrhea. Patient had her eyes examined in [place] this year and was told that she [...] of this encounter (statuses as of 12/27/2021) [facility] Narrative* [...] get beds in local hospital, transferred to [facility]. Anemia 10/24/2019 09/12/2021 Last Assessment & [...] 12/22/2018 Prosthetic aortic valve stenosis 11/19/2016 12/22/2018 medical terminologist current use of antiarrhythmic medical therapy 10/20/2016 [...] diarrhea. Patient had her eyes examined in [place] this year and was told that she [...] of this encounter (statuses as of 12/27/2021) [facility] Narrative* [...] get beds in local hospital, transferred to [facility]. Anemia 10/24/2019 09/12/2021 Last Assessment & [...] 12/22/2018 Prosthetic aortic valve stenosis 11/19/2016 12/22/2018 medical terminologist current use of antiarrhythmic medical therapy 10/20/2016 [...] diarrhea. Patient had her eyes examined in [place] this year and was told that she [...] of this encounter (statuses as of 12/29/2021) [facility] illness Narrative* [...] get beds in local hospital, transferred to [facility]. Anemia 10/24/2019 09/12/2021 Last Assessment & [...] 12/22/2018 Prosthetic aortic valve stenosis 11/19/2016 12/22/2018 medical terminologist current use of antiarrhythmic medical therapy 10/20/2016 [...] diarrhea. Patient had her eyes examined in [place] this year and was told that she [...] of this encounter (statuses as of 01/01/2022) [facility] Narrative* [...] get beds in local hospital, transferred to [facility]. Anemia 10/24/2019 09/12/2021 Last Assessment & [...] 12/22/2018 Prosthetic aortic valve stenosis 11/19/2016 12/22/2018 long-term current use of antiarrhythmic medical therapy 10/20/2016 [...] diarrhea. Patient had her eyes examined in [place] this year and was told that she [...] of this encounter (statuses as of 01/03/2022) [facility] Narrative* [...] get beds in local hospital, transferred to [facility]. Anemia 10/24/2019 09/12/2021 Last Assessment & [...] 12/22/2018 Prosthetic aortic valve stenosis 11/19/2016 12/22/2018 medical terminologist current use of antiarrhythmic medical therapy 10/20/2016 [...] diarrhea. Patient had her eyes examined in [place] this year and was told that she [...] of this encounter (statuses as of 01/07/2022) [facility] Narrative* [...] get beds in local hospital, transferred to [facility]. Anemia 10/24/2019 09/12/2021 Last Assessment & [...] 12/22/2018 Prosthetic aortic valve stenosis 11/19/2016 12/22/2018 long-term current use of antiarrhythmic medical therapy 10/20/2016 [...] diarrhea. Patient had her eyes examined in [place] this year and was told that she [...] of this encounter (statuses as of 01/09/2022) [place] [id number] History of Past illness Narrative* Problem Noted [...] get beds in local hospital, transferred to [facility]. Anemia 10/24/2019 09/12/2021 Last Assessment & [...] 12/22/2018 Prosthetic aortic valve stenosis 11/19/2016 12/22/2018 long-term current use of antiarrhythmic medical therapy 10/20/2016 [...] diarrhea. Patient had her eyes examined in [place] this year and was told that she [...] of this encounter (statuses as of 01/09/2022) [facility] Narrative* [...] get beds in local hospital, transferred to [facility]. Anemia 10/24/2019 09/12/2021 Last Assessment & [...] 12/22/2018 Prosthetic aortic valve stenosis 11/19/2016 12/22/2018 long-term current use of antiarrhythmic medical therapy 10/20/2016 [...] diarrhea. Patient had her eyes examined in [place] this year and was told that she [...] of this encounter (statuses as of 01/10/2022) [facility] Narrative* [...] get beds in local hospital, transferred to [facility]. Anemia 10/24/2019 09/12/2021 Last Assessment & [...] 12/22/2018 Prosthetic aortic valve stenosis 11/19/2016 12/22/2018 medical terminologist current use of antiarrhythmic medical therapy 10/20/2016 [...] diarrhea. Patient had her eyes examined in [place] this year and was told that she [...] of this encounter (statuses as of 01/15/2022) [facility] Narrative* [...] get beds in local hospital, transferred to [facility]. Anemia 10/24/2019 09/12/2021 Last Assessment & [...] 12/22/2018 Prosthetic aortic valve stenosis 11/19/2016 12/22/2018 long-term current use of antiarrhythmic medical therapy 10/20/2016 [...] diarrhea. Patient had her eyes examined in [place] this year and was told that she [...] of this encounter (statuses as of 01/16/2022) [facility] Narrative* [...] get beds in local hospital, transferred to [facility]. Anemia 10/24/2019 09/12/2021 Last Assessment & [...] 12/22/2018 Prosthetic aortic valve stenosis 11/19/2016 12/22/2018 medical terminologist current use of antiarrhythmic medical therapy 10/20/2016 [...] diarrhea. Patient had her eyes examined in [place] this year and was told that she [...] of this encounter (statuses as of 01/20/2022) [facility] Narrative* [...] get beds in local hospital, transferred to [facility]. Anemia 10/24/2019 09/12/2021 Last Assessment & [...] 12/22/2018 Prosthetic aortic valve stenosis 11/19/2016 12/22/2018 medical terminologist current use of antiarrhythmic medical therapy 10/20/2016 [...] diarrhea. Patient had her eyes examined in [place] this year and was told that she had no retinopathy. 2014, Anihta 7.5, she has been running around that [...] of this encounter (statuses as of 01/21/2022) [facility] Narrative* [...] get beds in local hospital, transferred to [facility]. Anemia 10/24/2019 09/12/2021 Last Assessment & [...] 12/22/2018 Prosthetic aortic valve stenosis 11/19/2016 12/22/2018 long-term current use of antiarrhythmic medical therapy 10/20/2016 [...] diarrhea. Patient had her eyes examined in [place] this year and was told that she [...] of this encounter (statuses as of 01/23/2022) [facility] Narrative* [...] get beds in local hospital, transferred to [facility]. Anemia 10/24/2019 09/12/2021 Last Assessment & [...] 12/22/2018 Prosthetic aortic valve stenosis 11/19/2016 12/22/2018 medical terminologist current use of antiarrhythmic medical therapy 10/20/2016 [...] diarrhea. Patient had her eyes examined in [place] this year and was told that she [...] of this encounter (statuses as of 02/09/2022) [facility] Narrative* [...] get beds in local hospital, transferred to [facility]. Anemia 10/24/2019 09/12/2021 Last Assessment & [...] 12/22/2018 Prosthetic aortic valve stenosis 11/19/2016 12/22/2018 medical terminologist current use of antiarrhythmic medical therapy 10/20/2016 [...] diarrhea. Patient had her eyes examined in [place] this year and was told that she [...] of this encounter (statuses as of 02/20/2022) [facility] illness Narrative* [...] get beds in local hospital, transferred to [facility]. Anemia 10/24/2019 09/12/2021 Last Assessment & [...] 12/22/2018 Prosthetic aortic valve stenosis 11/19/2016 12/22/2018 medical terminologist current use of antiarrhythmic medical therapy 10/20/2016 [...] diarrhea. Patient had her eyes examined in [place] this year and was told that she [...] of this encounter (statuses as of 02/23/2022) [facility] Author Dianne Stovall [facility] Note Date/Time January 11, 2025 12:3 0pm [facility] Medical Records Department [address] [place] [address] Instructions for Home/Discharge Instructions 01/11/25 1226 MR#: [id number] Acct: [id number] Name: BERTA SANCHES Rep #:[id number] : [...] minutes early to fill out paperwork) Mars eHrnandez MD [Non-Staff] - Deysi Collazo NP, BRAND STRATEGY MANAGER-C [Primary Care Provider] - Disposition Disposition (needs filled in before D/C Order can be placed): Home, Self Care 01/11/25 1230<Electronically signed by Dianne Stovall DO>Dianne Stovall DO CC: BRAND STRATEGY MANAGER-C Deysi Collazo; Dr. Jeremy Mcgarry MD; Dr. Radha Heller MD ~ Signed [facility] Work Phone: Evaluation note* Diagnosis PAD (peripheral artery disease) ([facility])- Primary Peripheral vascular disease, unspecified Anemia due to chronic illness Anemia of other chronic disease Atrial fibrillation, unspecified type ([facility]) documented [facility] this encounter [facility]* Diagnosis PAD (peripheral artery disease) (HCC)- Primary Peripheral vascular disease, unspecified PVD (peripheral vascular disease) ([facility]) Peripheral vascular disease, unspecified Atrial fibrillation, unspecified type ([facility]) documented in this encounter [facility]* Diagnosis Renal mass, right- Primary Unspecified [...] unspecified type (HCC) [facility] encounter [facility]* Diagnosis Anemia, unspecified type- Primary Atrial fibrillation, unspecified type (HCC) [facility]* Diagnosis Anemia, blood loss- Primary [...] unspecified type (HCC) [facility]* Diagnosis Acute blood loss anemia Acute posthemorrhagic anemia Heme + stool Nonspecific abnormal finding in stool contents Epigastric pain Abdominal pain, epigastric Atrial fibrillation, unspecified type (HCC) documented in this encounter [facility] noteNo assessment information availableWMarietta Memorial Hospital Work Phone: Evaluation note* Diagnosis Heme positive stool- Primary Nonspecific abnormal finding in stool contents Blood loss anemia Iron deficiency anemia secondary to blood loss (chronic) Atrial fibrillation, unspecified type (HCC) documented in this encounter [facility] note* Diagnosis Atrial fibrillation, unspecified type (HCC)- Primary Gastrointestinal hemorrhage, unspecified gastrointestinal hemorrhage type Anemia due to chronic blood loss Iron deficiency anemia secondary to blood loss (chronic) Other fatigue SOB (shortness of breath) Shortness of breath documented [facility] this encounter [facility] [facility] Diagnosis Atrial fibrillation, unspecified type (HCC)- Primary Presence of Watchman left atrial appendage closure device Herpes zoster without complication Herpes zoster without mention of complication [facility] Diagnosis Paroxysmal atrial fibrillation (HCC)- Primary Atrial fibrillation documented in this encounter [facility] Diagnosis Paroxysmal atrial fibrillation (HCC)- Primary Atrial fibrillation Presence of Watchman left atrial appendage closure device [facility] Diagnosis Rectal bleeding- Primary Hemorrhage of rectum and anus Anemia, blood loss Iron deficiency anemia secondary to blood loss (chronic) Diarrhea, unspecified type [facility] Diagnosis Longstanding persistent atrial fibrillation (HCC)- Primary Presence of Watchman left atrial appendage closure device [facility] Diagnosis Acute combined systolic and diastolic [...] Unspecified essential hypertension [facility] Diagnosis History of prosthetic aortic valve [...] of cerebral infarction [facility] Diagnosis Right renal mass Unspecified disorder of kidney and ureter [facility] Diagnosis Paroxysmal atrial fibrillation (HCC) Atrial fibrillation Presence of Watchman left atrial appendage closure device [facility] Diagnosis Hospital discharge follow-up- Primary Other [...] blood loss (chronic) [facility] 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 Other specified intestinal malabsorption [facility] Diagnosis 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 Neoplasm of uncertain behavior of kidney and ureter Iron 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) Stage 3b chronic kidney disease (HCC) [facility] Diagnosis Iron 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- Primary Iron malabsorption Other specified intestinal malabsorption [facility] Diagnosis Iron 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- Primary Iron malabsorption Other specified intestinal malabsorption [facility] Diagnosis Iron 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- Primary Iron malabsorption Other specified intestinal malabsorption [facility] Diagnosis Primary hypertension Unspecified essential hypertension [facility] Diagnosis Iron 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- Primary Iron malabsorption Other specified intestinal malabsorption [facility] Diagnosis Iron 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- Primary Chronic renal failure, stage 3b (HCC) [facility] Diagnosis Primary hypertension Unspecified essential hypertension [facility] Diagnosis H/O rheumatic heart disease- [...] vascular disease, unspecified [facility] Lung nodule, solitary- Primary Solitary pulmonary nodule [facility] Diagnosis Heme + stool Nonspecific abnormal finding in stool contents Epigastric pain Abdominal pain, epigastric Blood loss anemia Iron deficiency anemia secondary to blood loss (chronic) [facility] Diagnosis History of prosthetic aortic valve [...] and unspecified hyperlipidemia [facility] Diagnosis Primary hypertension Unspecified essential hypertension [facility] Diagnosis S/P placement of cardiac pacemaker- [...] of insulin (HCC) documented in this encounter [facility]* Diagnosis Bilateral carotid artery stenosis- Primary Occlusion and stenosis of carotid artery without mention of cerebral infarction Atherosclerosis of [place] artery of both lower extremities with intermittent claudication (HCC) Atherosclerosis of [place] arteries of the extremities with intermittent claudication 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HCC) Acute vascular insufficiency of intestine Pain in both lower legs 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 Other specified intestinal malabsorption S/P placement of cardiac pacemaker Cardiac pacemaker in situ SSS (sick sinus syndrome) ([facility]) Sinoatrial node dysfunction Chronic combined systolic and [...] deficiency anemia type documented in this encounter [facility]* Diagnosis PVD (peripheral vascular disease) with claudication ([facility])- Primary Peripheral vascular disease, unspecified [facility] Diagnosis Heme + stool Nonspecific abnormal finding in stool contents Epigastric pain Abdominal pain, epigastric Blood loss anemia Iron deficiency anemia secondary to blood loss (chronic) [facility] Diagnosis Lung nodule, solitary Solitary pulmonary nodule [facility] Diagnosis 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 [facility] Diagnosis Closed nondisplaced fracture of fifth metatarsal bone of right foot with routine healing, subsequent encounter- Primary [facility] Diagnosis Influenza-like illness- Primary Influenza with other respiratory manifestations [facility] Diagnosis 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)- Primary Chronic combined systolic and diastolic heart failure Dilated cardiomyopathy (HCC) Other primary cardiomyopathies [facility] Diagnosis SSS (sick sinus syndrome) ([facility])- Primary Sinoatrial node dysfunction Paroxysmal atrial fibrillation [...] vitamin D deficiency [facility] Diagnosis Borderline anemia- Primary Acute systolic congestive heart failure (HCC) Acute systolic heart failure [facility] Diagnosis Acute systolic CHF (congestive heart failure) (HCC)- Primary Acute systolic heart failure Rheumatic tricuspid valve regurgitation Diseases of tricuspid valve Diuresis excessive Polyuria 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) Chronic combined systolic and diastolic heart failure Dilated cardiomyopathy (HCC) Other primary cardiomyopathies Longstanding persistent atrial fibrillation (HCC) SSS (sick sinus syndrome) (HCC) Sinoatrial node dysfunction S/P placement of cardiac pacemaker Cardiac pacemaker in situ Acute hip pain, right Piriformis syndrome, right Bilateral knee effusions Effusion of lower leg joint Primary osteoarthritis of both knees Primary localized osteoarthrosis, lower leg [facility] Diagnosis Acute HFrEF (heart failure with reduced ejection fraction) ([facility])- Primary VHD (valvular heart disease) Endocarditis, valve unspecified, unspecified cause Nonrheumatic tricuspid valve regurgitation Tricuspid valve disorders, specified as nonrheumatic Nonrheumatic mitral valve regurgitation Persistent atrial fibrillation (HCC) Atrial fibrillation Pacemaker Cardiac pacemaker in situ [facility] Diagnosis Venous insufficiency- Primary Unspecified venous (peripheral) insufficiency [facility] Diagnosis Venous insufficiency- Primary Unspecified venous (peripheral) insufficiency [facility] Diagnosis Iron 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- Primary Iron malabsorption Other specified intestinal malabsorption [facility] Diagnosis Acute systolic CHF (congestive heart failure) ([facility])- Primary Acute systolic heart failure Hyponatremia Hyposmolality and/or hyponatremia Hypokalemia Hypopotassemia documented [facility] Diagnosis Chronic diastolic congestive heart failure (HCC)- Primary Chronic diastolic heart failure Primary hypertension Unspecified essential hypertension SSS (sick sinus syndrome) ([facility]) Sinoatrial node dysfunction Longstanding persistent atrial fibrillation ([facility]) Acute systolic CHF (congestive heart failure) ([facility]) Acute systolic heart failure [facility] Diagnosis URI, acute- Primary Acute upper respiratory infections of unspecified site [facility] Diagnosis History of prosthetic aortic valve replacement- Primary Heart valve replaced by other means H/O rheumatic heart disease Personal history of other diseases of circulatory system Longstanding persistent atrial fibrillation ([facility]) Ascending aorta dilatation ([facility]) Thoracic aortic ectasia Dilated cardiomyopathy ([facility]) Other primary cardiomyopathies Aortic prosthetic valve regurgitation, subsequent encounter Chronic diastolic (congestive) heart failure (HCC) SSS (sick sinus syndrome) ([facility]) Sinoatrial node dysfunction Primary hypertension Unspecified essential hypertension Hyperlipidemia with target LDL less than 70 Other and unspecified hyperlipidemia S/P placement of cardiac pacemaker Cardiac pacemaker in situ PAD (peripheral artery disease) ([facility]) Peripheral vascular disease, unspecified Acute systolic CHF (congestive heart failure) (HCC) Acute systolic heart failure [facility] Diagnosis Chronic diastolic congestive heart failure (HCC)- Primary Chronic diastolic heart failure [facility] Diagnosis Chronic kidney disease, unspecified CKD stage- Primary [facility]* Diagnosis SOB (shortness of breath)- Primary [...] Coronary atherosclerosis of unspecified type of vessel, [place] or graft SUMMARY Hyperlipidemia LDL goal < [...] uncontrolled Acute systolic CHF (congestive heart failure) ([facility]) Acute systolic heart failure [facility] Diagnosis SOB (shortness of [...] Coronary atherosclerosis of unspecified type of vessel, [place] or graft SUMMARY Hyperlipidemia LDL goal < [...] healing, subsequent encounter [facility] Diagnosis SOB (shortness of [...] Coronary atherosclerosis of unspecified type of vessel, [place] or graft SUMMARY Hyperlipidemia LDL goal < [...] right middle finger [facility]* Diagnosis SOB (shortness of breath)- Primary [...] Coronary atherosclerosis of unspecified type of vessel, [place] or graft SUMMARY Hyperlipidemia LDL goal < [...] of left side documented in this encounter [facility]* Diagnosis SOB (shortness of breath)- Primary [...] Coronary atherosclerosis of unspecified type of vessel, [place] or graft SUMMARY Hyperlipidemia LDL goal < [...] atrial fibrillation (HCC) [facility] Diagnosis SOB (shortness of breath)- Primary [...] Coronary atherosclerosis of unspecified type of vessel, [place] or graft SUMMARY Hyperlipidemia LDL goal < [...] Other follow-up examination documented in this encounter [facility]* Diagnosis SOB (shortness of breath)- [...] Coronary atherosclerosis of unspecified type of vessel, [place] or graft SUMMARY Hyperlipidemia LDL goal < [...] type, unspecified whether acute cor pulmonale present ([facility]) Gastrointestinal hemorrhage, unspecified gastrointestinal hemorrhage type Iron [...] Unspecified essential hypertension SSS (sick sinus syndrome) ([facility]) Sinoatrial node dysfunction Longstanding persistent atrial fibrillation ([facility]) Stage 3b chronic kidney disease ([facility]) documented in this encounter [facility]* Diagnosis SOB (shortness of breath)- Primary [...] Coronary atherosclerosis of unspecified type of vessel, [place] or graft SUMMARY Hyperlipidemia LDL goal < [...] of cerebral infarction documented in this encounter [facility]* Diagnosis SOB (shortness of breath)- Primary [...] Coronary atherosclerosis of unspecified type of vessel, [place] or graft SUMMARY Hyperlipidemia LDL goal < [...] diastolic heart failure [facility] Diagnosis SOB (shortness of breath)- Primary [...] Coronary atherosclerosis of unspecified type of vessel, [place] or graft SUMMARY Hyperlipidemia LDL goal < [...] insufficiency of intestine [facility] Diagnosis SOB (shortness of breath)- Primary [...] Coronary atherosclerosis of unspecified type of vessel, [place] or graft SUMMARY Hyperlipidemia LDL goal < [...] Sinoatrial node dysfunction Longstanding persistent atrial fibrillation ([facility]) documented in this encounter [facility]* Diagnosis SOB (shortness of breath)- Primary [...] Coronary atherosclerosis of unspecified type of vessel, [place] or graft SUMMARY Hyperlipidemia LDL goal < [...] insufficiency of intestine [facility] Diagnosis SOB (shortness of [...] Coronary atherosclerosis of unspecified type of vessel, [place] or graft SUMMARY Hyperlipidemia LDL goal < [...] and unspecified hyperlipidemia documented in this encounter [facility]* Diagnosis Onset Date Resolution Status Admit Date CHF exacerbation acute January 4:29pm [facility] Work Phone: History and physical note Author Radha Heller [facility] Note Date/Time January 07, 2025 4:35p m [facility] Medical Records Department [address] [place] [address] H&P Exam - Hospitalist 01/07/25 1629 MR#: [id number] Acct: [id number] Name: BERTA SANCHES Rep #:[id number] : [...] post Watchman device, congestive heart failure presented [facility] ED 01/07/2025 with several weeks of shortness of breath and bilateral lower extremity edema. Reportedly in September 2023 she had surgery in [place] for some kind of intra-abdominal artery blockageand was placed on Plavix and aspirin and was having difficulties with her heart failure at that time. She came home at the end of October and has been taking herLasix 40 twice daily and spironolactone 12.5 mg twice daily without improvement. She recently followed with her [facility] rn medicare with increase in her Lasix by mouth [...] bowel or bladder changes. ROS otherwise negative [facility] Medical History Anxiety Brain aneurysm Bronchospasm [...] % (Auto) 59.8, Lymph % (Auto) 24.2, Sebastian % (Auto) 12.9 H, Eos % (Auto) [...] Sens 71 H*, [place] [address] H 01/07/25 14:54: Troponin T Hi Sens 2 Hr 68 H* Imaging Radiology Impression Chest X-Ray 01/07/25 13:19 IMPRESSION: Findings consistent with mild congestive heart failure. Reading Location: [id number] Assessment & Plan Assessment/Plan (1) CHF exacerbation: [...] Heller MD Charges/Coding Visit Charges Inpatient E&M: 38511 Init Hosp L2 01/07/25 1635 <Electronically signed by Radha Heller MD> Cosigner Signature (if applicable): CC: JARROD Collazo; Dr. Radha Heller MD~ Signed [facility] Work Phone: Hospital Discharge instructionsAdditional Instructions [facility]: [facility] Hospital Discharge instructionsAdditional Instructions Follow-up with your doctor next week. Continue to use your bumetanide and your metolazone for your fluid retention. Follow-up with Dr. Flores early next week to ensure you are improving. Return to the emergency department if you are feeling worse.[facility] Work Phone: Hospital Discharge instructionsAdditional Instructions [...] the ER should you have any further concernsWMarietta [facility] Work Phone: Progress note Author Ric Noriega [facility] Note Date/Time April 24, 2025 4 :45pm [facility] [address] [place] [address] OFFICE VISIT Date of Service: 04/24/25 1525 MR#: [id number] Acct: [id number] Name: BERTA SANCHES SCOTTIE Rep #: [id number] : 1945 From: Ric champion MD Age/Sex: 79/F [facility] Status: Signed HPI Subjective Date of Service [...] right leg. In 2024 and while in [place] she was hospitalized underwent a colonoscopy to herknowledge did not show any bleeding lesions, she is unaware whether she had an EGD or not during that hospital stay but she was placed on PPI therapy since. 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 Ric Noriega MD Community Service Aide, [facility] Divisions of Medical Oncology & Hematology Department of Internal Medicine [facility] [place] [address] This note was generated using a voice [...] fallen in the past year?: No 04/24/25 154 <Electronically signed by Ric smith MD> Date _ Ric Noriega MD Cosigner Signature: Date (if applicable) CC: Dr. Vincent Flores MD ~ [facility] Work Phone: [employer] for referral (narrative)* Diagnostic Procedure Only (Routine) - Closed Specialty Diagnoses / Procedures Referred By Leilani ng Referred To Contact XR IMAGING Diagnoses Ischial bursitis of left side Procedures XR HIP GENERAL 3V PELV/AP/LAT LEFT RADEX HIP UNILATERAL WITH PELVIS 2-3 VIEWS Doreen Le PA-C [address] [place] [address] Xr Imaging Referral ID Status Reason Start Date Expiration Date V isits Requested Visits Authorized [id number] Closed Auto-Generate d Referral 12/15/2021 01/14/2023 1 1 [facility] for referral (narrative)* Outpatient Procedure (Routine) - Pending Review Specialty Diagnoses / Procedures Referred By Leilani ng Referred To Contact [facility] Diagnoses Acute blood loss anemia Heme + stool Epigastric pain Procedures EGD DIAGNOSTIC ESOPHAGOGASTRODUODENOSC OPY TRANSORAL DIAGNOSTIC REFERRAL TO [facility] FINANCIAL COUNSELOR Chai Encinas MD [address] [place] [address] [facility] [address] [place] [address] Referral ID Status Reason Start Date Expiration Date Visits Requested Visits Authorized [id number] Pending Review Auto-Generated Referral 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 OON Notification Letter Patient Cleared - Admin/Cooper Helper/D irector advise to proceed 2 04/01/2022 1 1 [facility] for referral (narrative)* Outpatient Procedure (Routine) - Closed Specialty Diagnoses / Procedures Referred By Leilani ng Referred To Contact Diagnoses Acute blood loss anemia Heme + stool Epigastric pain Procedures EGD DIAGNOSTIC ESOPHAGOGASTRODUODENOSCOPY TRANSORAL DIAGNOSTIC REFERRAL TO [facility] FINANCIAL COUNSELOR Chai Encinas MD [address] [facility] [place] [address] [facility] [address] [place] [address] Referral ID Status Reason Start Date Expiration Date Visits Requested Visits Authorized [id number] Closed Auto-Generated Referral 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 OON Notification Letter Patient Cleared - Admin/Cooper Helper/D irector advise to proceed 01/01/2022 07/04/2022 1 1 [facility] for referral (narrative)* Outpatient Procedure (Routine) - Pending Review Specialty Diagnoses / Procedures Referred By Leilani ng Referred To Contact [facility] Diagnoses Paroxysmal atrial fibrillation (HCC) Procedures ECHO TRANSESOPHAGEAL ECHO TRANSESOPHAG R-T 2D W/PRB IMG ACQUISJ I&R Candi Beauchamp APRN.BRANCH LEAD [address] [place] [address] [facility] [place] [address] [place] [address] Referral ID Status Reason Start Date Expiration Date Visits Requested Visits Authorized [id number] Pending Review Auto-Generat ed Referral 01/21/2022 01/21/2023 1 1 * Outpatient Procedure (Routine) - Pending Review Specialty Diagnoses / Procedures Referred By Leilani ng Referred To Contact [facility] Diagnoses Paroxysmal atrial fibrillation (HCC) Procedures ECG COMPLETE ECG ROUTINE ECG W/LEAST 12 LDS W/I&R Candi Beauchamp APRN.BRANCH LEAD [address] [place] [address] [facility] [place] [address] [place] [address] Referral ID Status Reason Start Date Expiration Date Visits Requested Visits Authorized [id number] Pending Review Auto-Generat ed Referral 01/21/2022 01/21/2023 1 1 * Outpatient Procedure (Routine) - Pending Review Specialty Diagnoses / Procedures Referred By Contac t Referred To Contact [facility] Diagnoses Paroxysmal atrial fibrillation (HCC) Procedures ECHO TRANSESOPHAGEAL ECHO TRANSESOPHAG R-T 2D W/PRB IMG VIOLAISGlenna I&R Candi Beauchamp APRN.BRANCH LEAD [address], [address] [place] [id number] [facility] [place] [address] [place] [address] Referral ID Status Reason Start Date Expiration Date Visits Requested Visits Authorized [id number] Pending Review Auto-Generat ed Referral 01/21/2022 01/21/2023 1 1 [facility] for referral (narrative)* Outpatient Procedure (Routine) - Pending Review Specialty Diagnoses / Procedures Referred By Contac t Referred To Contact [facility] Diagnoses Paroxysmal atrial fibrillation (HCC) Presence of Watchman left atrial appendage closure device Procedures ECHO TRANSESOPHAGEAL ECHO TRANSESOPHAG R-T 2D W/PRB IMG LINUS I&R Candi Beauchamp APRN.BRANCH LEAD [address], [address] [address] [facility] [place] [address] [place] [address] Referral ID Status Reason Start Date Expiration Date Visits Requested Visits Authorized [id number] Pending Review Auto-Generat ed Referral 02/09/2022 02/09/2023 1 1 * Outpatient Procedure (Routine) - Pending Review Specialty Diagnoses / Procedures Referred By Contac t Referred To Contact [facility] [place] Diagnoses Paroxysmal atrial fibrillation (HCC) Presence of Watchman left atrial appendage closure device Procedures ECG COMPLETE ECG ROUTINE ECG W/LEAST 12 LDS W/I&R Candi Beauchamp APRN.CNP [address] [place] [id number] [facility] [place] [address] [place] [address] Referral ID Status Reason Start Date Expiration Date Visits Requested Visits Authorized [id number] Pending Review Auto-Generat ed Referral 02/09/2022 02/09/2023 1 1 * Outpatient Procedure (Routine) - Pending Review Specialty Diagnoses / Procedures Referred By Contac t Referred To Contact [facility] Diagnoses Paroxysmal atrial fibrillation (HCC) Presence of Watchman left atrial appendage closure device Procedures ECHO TRANSESOPHAGEAL ECHO TRANSESOPHAG R-T 2D W/PRB IMG ACQUISGlenna I&R Candi Beauchamp APRN.BRANCH LEAD [address] [facility] [place] [phone] [place] [address] [place] [phone] Referral ID Status Reason Start Date Expiration Date Visits Requested Visits Authorized [id number] Pending Review Auto-Generat ed Referral 02/09/2022 02/09/2023 1 1 [facility] for referral (narrative)* Outpatient Procedure (Routine) - Pending Review Specialty Diagnoses / Procedures Referred By Contac t Referred To Contact [facility] Diagnoses Longstanding persistent atrial fibrillation (HCC) Presence of Watchman left atrial appendage closure device Procedures ECHO TRANSESOPHAGEAL ECHO TRANSESOPHAG R-T 2D W/PRB IMG ACQUISJ I&R Radha Torres APRN.BRANCH LEAD [address] [place] [phone] [address] [address] Referral ID Status Reason Start Date Expiration Date Visits Requested Visits Authorized [id number] Pending Review Auto-Generat ed Referral 03/04/2022 03/04/2023 1 1 [facility] for referral (narrative)* Outpatient Procedure (Routine) - Authorized Specialty Diagnoses / Procedures Referred By Contac t Referred To Contact [facility] Diagnoses Aortic prosthetic valve regurgitation, 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) Procedures ECG COMPLETE ECG ROUTINE ECG W/LEAST 12 LDS W/I&R Doreen Le PA-C [address] [place] [address] [address] Referral ID Status Reason Start Date Expiration Date Visits Requested Visits Authorized [id number] Authorized Auto-Generat ed Referral 03/19/2022 03/19/2023 1 1 [facility] for referral (narrative)* Diagnostic Procedure Only (Routine) - Authorized Specialty Diagnoses / Procedures [facility] US IMAGING Diagnoses Neoplasm of uncertain behavior of right kidney Procedures US KIDNEY/BLADDER US RETROPERITONEAL REAL TIME W/IMAGE COMPLETE Brayan Chicas MD [address] [place] [address] Us Imaging Referral ID Status Reason Start Date Expiration Date Visits Requested Visits Authorized [id number] Authorized Auto-Generat ed Referral 09/02/2022 05/09/2023 1 1 [facility] for referral (narrative)* Outpatient Procedure (Routine) - Authorized Specialty Diagnoses / Procedures Referred By Contac t Referred To Contact [facility] Diagnoses History of prosthetic aortic valve replacement H/O rheumatic heart disease Procedures ECHO ECHO TTHRC R-T 2D W/WOM-MODE COMPL SPEC&COLR D Carla Burdick MD [address] [place] [address] [facility] [address] [address] Referral ID Status Reason Start Date Expiration Date Visits Requested Visits Authorized [id number] Authorized Auto-Generat ed Referral 03/05/2023 09/28/2023 1 1 [facility] for referral (narrative)* Outpatient Procedure (Routine) - Pending Review Specialty Diagnoses / Procedures Referred By Contac t Referred To Contact [facility] Diagnoses 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HCC) Pain in both lower legs Atherosclerosis of [place] artery of both lower extremities with intermittent claudication (HCC) Procedures PVR LEG [facility]HEL [facility] NON-INVASIVE PHYSIOLOGIC STUDY EXTREMITY 3 LEVLS Doreen Le PA-C [address] [place] [address] [facility] [address] [address] Referral ID Status Reason Start Date Expiration Date Visits Requested Visits Authorized [id number] Pending Review Auto-Generat ed Referral 01/07/2023 01/07/2024 1 1 * Outpatient Procedure (Routine) - Pending Review Specialty Diagnoses / Procedures Referred By Contac t Referred To Contact [facility] Diagnoses 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HCC) Pain in both lower legs Atherosclerosis of [place] artery of both lower extremities with intermittent claudication (HCC) Procedures PVR ANK PRESS [facility] NON-INVAS PHYSIOLOGIC STD EXTREMITY ART 2 LEVEL Doreen Le PA-C [address] [place] [address] [facility] [address] [address] Referral ID Status Reason Start Date Expiration Date Visits Requested Visits Authorized [id number] Pending Review Auto-Generat ed Referral 01/07/2023 01/07/2024 1 1 * Outpatient Procedure (Routine) - Authorized Specialty Diagnoses / Procedures [facility] Referred To Contact [facility] Diagnoses Bilateral carotid artery stenosis Procedures US CAROTID ARTERIES [facility] DUPLEX SCAN EXTRACRANIAL ART COMPL BI STUDY Doreen Le PA-C [address] [place] [address] [address] Referral ID Status Reason Start Date Expiration Date Visits Requested Visits Authorized [id number] Authorized Auto-Generat ed Referral 01/07/2023 01/07/2024 1 1 [facility] for referral (narrative)* Diagnostic Procedure Only (Routine) - Closed Specialty Diagnoses / Procedures [facility] Referred To Contact US IMAGING Diagnoses Neoplasm of uncertain behavior of right kidney Procedures US KIDNEY/BLADDER US RETROPERITONEAL REAL TIME W/IMAGE COMPLETE Brayan Chicas MD [address] [place] [address] [place] [id number] Referral ID Status Reason Start Date Expiration Date V isits Requested Visits Authorized [id number] Closed Auto-Generate d Referral 09/02/2022 05/09/2023 1 1 [facility] for referral (narrative)* Outpatient Procedure (Routine) - Authorized Specialty Diagnoses / Procedures [facility] Referred To Contact [facility] Diagnoses Acute systolic CHF (congestive heart failure) (HCC) Procedures ECHO ECHO TTHRC R-T 2D W/WOM-MODE COMPL SPEC&COLR D Doreen Le PA-C [address] [place] [address] [facility] [address] [address] Referral ID Status Reason Start Date Expiration Date Visits Requested Visits Authorized [id number] Authorized Auto-Generat ed Referral 10/18/2023 10/17/2024 1 1 * Outpatient Procedure (Routine) - Pending Review Specialty Diagnoses / Procedures Referred By Contac t Referred To Contact [facility] [place] Diagnoses Acute systolic CHF (congestive heart failure) (HCC) Procedures ECG COMPLETE ECG ROUTINE ECG W/LEAST 12 LDS W/I&R Doreen Le PA-C [address] [place] [address] [facility] [place] [address] [place] [address] Referral ID Status Reason Start Date Expiration Date Visits Requested Visits Authorized [id number] Pending Review Auto-Generat ed Referral 10/18/2023 10/17/2024 1 1 [facility] for referral (narrative)* Outpatient Procedure (Routine) - Closed Specialty Diagnoses / Procedures Referred By Contac t Referred To Contact [facility] Diagnoses Venous insufficiency Procedures US LEG VEIN DVT [facility] DUP-SCAN XTR VEINS COMPLETE BILATERAL STUDY Lars Silva DO [address] [place] [address] [address] Referral ID Status Reason Start Date Expiration Date V isits Requested Visits Authorized [id number] Closed Auto-Generate d Referral 10/14/2023 10/13/2024 1 1 [facility] for referral (narrative)* Diagnostic Procedure Only (Routine) - Closed Specialty Diagnoses / Procedures Referred By Contac t Referred To Contact XR IMAGING Diagnoses Closed nondisplaced fracture of fifth metatarsal bone of right foot with routine healing, subsequent encounter Procedures XR FOOT GENERAL 3V AP/LAT/OBL RIGHT RADEX FOOT COMPLETE MINIMUM 3 VIEWS Doreen Le PA-C [address] [place] [address] [place] [id number] Referral ID Status Reason Start Date Expiration Date V isits Requested Visits Authorized [id number] Closed Auto-Generate d Referral 06/01/2023 06/30/2024 1 1 [facility] for referral (narrative)* Diagnostic Procedure Only (Routine) - Closed Specialty Diagnoses / Procedures Referred By Leilani t Referred To Contact XR IMAGING Diagnoses Pain of right middle finger Procedures XR DIGIT GENERAL 3V FRONTAL/LAT/OBL RIGHT RADEX FINGR MINIMUM 2 VIEWS Doreen Le PA-C [address] [place] [address] [place] [address] Referral ID Status Reason Start Date Expiration Date V isits Requested Visits Authorized [id number] Closed Auto-Generate d Referral 04/12/2023 05/11/2024 1 1 [facility] for referral (narrative)* Diagnostic Procedure Only (Routine) - Closed Specialty Diagnoses / Procedures Referred By Leilani ng Referred To Contact XR IMAGING Diagnoses Ischial bursitis of left side Procedures XR HIP GENERAL 3V PELV/AP/LAT LEFT RADEX HIP UNILATERAL WITH PELVIS 2-3 VIEWS Doreen Le PA-C [address] [place] [address] [place] [address] Referral ID Status Reason Start Date Expiration Date V isits Requested Visits Authorized [id number] Closed Auto-Generate d Referral 12/15/2021 01/14/2023 1 1 [facility] for referral (narrative)No reason for referral information availableWMarietta [facility] Work Phone: Rebykd for visit Narrative* Outpatient Procedure (Routine) - Closed Specialty Diagnoses / Procedures Referred By Leilani t Referred To Contact Diagnoses Acute blood loss anemia Heme + stool Epigastric pain Procedures EGD DIAGNOSTIC ESOPHAGOGASTRODUODENOSCOPY TRANSORAL DIAGNOSTIC REFERRAL TO [facility] FINANCIAL COUNSELOR Chai Encinas MD [address] [place] [address] [facility] [place] [address] [place] [address] Referral ID Status Reason Start Date Expiration Date Visits Requested Visits Authorized [id number] Closed Auto-Generated Referral 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 OON Notification Letter Patient Cleared - Admin/Cooper Helper/D irector advise to proceed 01/01/2022 07/04/2022 1 1 [facility] for visit Narrative* Diagnostic Procedure Only (Routine) - Closed Specialty Diagnoses / Procedures Referred By Contac t Referred To Contact Laboratory Medicine / LAB COVID TESTING LL Lot Diagnoses Paroxysmal atrial fibrillation PRE-PROCEDURE & PRE-OPERATIVE COVID Paroxysmal atrial fibrillation (HCC) [I48.0] Procedures COVID19 LAB COVID Chandler Swan MD [address] [place] [address] [place] [id number] [place] [address] Referral ID Status Reason Start Date Expiration Date Visits Re quested Visits Authorized [id number] Closed 01/09/2022 07/04/2022 1 1 [facility] for visit Narrative* Diagnostic Procedure Only (Routine) - Closed Specialty Diagnoses / Procedures Referred By Contac t [facility] Diagnoses Paroxysmal atrial fibrillation (HCC) Presence of Watchman left atrial appendage closure device Procedures ECHO TRANSESOPHAGEAL ECHO TRANSESOPHAG R-T 2D W/PRB IMG LINUS I&R Candi Beauchamp APRN.BRANCH LEAD [address] [facility], [address] [place] [address] [facility] [place] [facility] [place] [phone] Referral ID Status Reason Start Date Expiration Date V isits Requested Visits Authorized [id number] Closed Auto-Generate d Referral 02/09/2022 07/04/2022 1 1 [facility] for visit Narrative* Diagnostic Procedure Only (Routine) - Closed Specialty Diagnoses / Procedures Referred By Contac t Referred To Contact XR IMAGING Diagnoses Closed nondisplaced fracture of fifth metatarsal bone of right foot with routine healing, subsequent encounter Procedures XR FOOT GENERAL 3V AP/LAT/OBL RIGHT RADEX FOOT COMPLETE MINIMUM 3 VIEWS Doreen Le PA-C [address] [place] [address] [place] [address] Referral ID Status Reason Start Date Expiration Date V isits Requested Visits Authorized [id number] Closed Auto-Generate d Referral 06/01/2023 06/30/2024 1 1 [facility] for visit Narrative* Diagnostic Procedure Only (Routine) - Closed Specialty Diagnoses / Procedures Referred By Contac t Referred To Contact XR IMAGING Diagnoses Pain of right middle finger Procedures XR DIGIT GENERAL 3V FRONTAL/LAT/OBL RIGHT RADEX FINGR MINIMUM 2 VIEWS Doreen Le PA-C [address] [place] [address] [place] [address] Referral ID Status Reason Start Date Expiration Date V isits Requested Visits Authorized [id number] Closed Auto-Generate d Referral 04/12/2023 05/11/2024 1 1 [facility] for visit Narrative* Diagnostic Procedure Only (Routine) - Closed Specialty Diagnoses / Procedures Referred By Contac t Referred To Contact XR IMAGING Diagnoses Ischial bursitis of left side Procedures XR HIP GENERAL 3V PELV/AP/LAT LEFT RADEX HIP UNILATERAL WITH PELVIS 2-3 VIEWS Doreen Le PA-C [address] [place] [address] [place] [address] Referral ID Status Reason Start Date Expiration Date V isits Requested Visits Authorized [id number] Closed Auto-Generate d Referral 12/15/2021 01/14/2023 1 1 [facility] Summary Purpose Family History Relationship Condition Age [...] Documents on File Type Date Recorded 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 Advance Directive(s) 02/26/2021 11:31 AM Advance Directive(s) 10/02/2020 4:46 PM Advance Directive(s) 10/24/2019 6:40 PM Advance Directive(s) 07/18/2019 8:41 AM Advance Directive(s) 06/21/2019 9:34 AM Advance Directive(s) 05/04/2019 8:22 AM Advance Directive(s) 03/22/2019 7:15 AM Advance Directive(s) 08/31/2015 1:42 PM Advance Directive(s) 08/20/2015 4:21 PM Documents on File Type Date Recorded 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 Advance Directive(s) 02/26/2021 11:31 AM Advance Directive(s) 10/02/2020 4:46 PM Advance Directive(s) 10/24/2019 6:40 PM Advance Directive(s) 07/18/2019 8:41 AM Advance Directive(s) 06/21/2019 9:34 AM Advance Directive(s) 05/04/2019 8:22 AM Advance Directive(s) 03/22/2019 7:15 AM Advance Directive(s) 08/31/2015 1:42 PM Advance Directive(s) 08/20/2015 4:21 PM Documents on File Type Date Recorded 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 Advance Directive(s) 12/23/2021 1:13 PM Advance Directive(s) 02/26/2021 11:31 AM Advance Directive(s) 10/02/2020 4:46 PM Advance Directive(s) 10/24/2019 6:40 PM Advance Directive(s) 07/18/2019 8:41 AM Advance Directive(s) 06/21/2019 9:34 AM Advance Directive(s) 05/04/2019 8:22 AM Advance Directive(s) 03/22/2019 7:15 AM Advance Directive(s) 08/31/2015 1:42 PM Advance Directive(s) 08/20/2015 4:21 PM Documents on File Type Date Recorded 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 Advance Directive(s) 12/23/2021 1:13 PM Advance Directive(s) 02/26/2021 11:31 AM Advance Directive(s) 10/02/2020 4:46 PM Advance Directive(s) 10/24/2019 6:40 PM Advance Directive(s) 07/18/2019 8:41 AM Advance Directive(s) 06/21/2019 9:34 AM Advance Directive(s) 05/04/2019 8:22 AM Advance Directive(s) 03/22/2019 7:15 AM Advance Directive(s) 08/31/2015 1:42 PM Advance Directive(s) 08/20/2015 4:21 PM Documents on File Type Date Recorded 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 Advance Directive(s) 01/02/2022 8:28 AM [...] Will No February 13 6:44pm Power of Child Welfare Manager No February 13 021 6:44pm Documents on File Type Date Recorded 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 Yes January 07, 2025 1:29pm Advance Directives No July 13, 2015 4:56pm Advance Directive Response Recorded Date/ Time Do you have a Healthcare Power of Child Welfare Manager? Yes January 07, 2025 5:54pm Advance Directives No July 13, 2015 4:56pm Advance Directive Response Recorded Date/ Time Do you have a Healthcare Power of Child Welfare Manager? Yes January 07, 2025 5:54pm Do you have a Healthcare Power of Child Welfare Manager? Yes February 16, 2025 12:03pm Name of Medical Power of Child Welfare Manager February 16, 2025 12:03pm Advance Directives No July 13, 2015 4:56pm Advance Directive Response Recorded Date/ Time Do you have a Healthcare Power of Child Welfare Manager? Yes January 07, 2025 5:54pm Do you have a Healthcare Power of Child Welfare Manager? Yes February 16, 2025 12:03pm Name of Medical Power of Child Welfare Manager February 16, 2025 12:03pm Do you have a Healthcare Power of Child Welfare Manager? Yes March 22, 2025 3:36am Advance Directives No July 13, 2015 4:56pm Advance Directive Response Recorded Date/ Time Do you have a Healthcare Power of Child Welfare Manager? Yes February 16, 2025 11:03am Name of Medical Power of Child Welfare Manager February 16, 2025 11:03am Do you have a Healthcare Power of Child Welfare Manager? Yes March 22, 2025 2:36am Advance Directives No July 13, 2015 3:56pm History of Present Illness * Mars Chung [...] atrial fibrillation. Previously seen by me at [facility]. At that time she had paroxysmal [...] file Gets together: Not on file Attends [employer] service: Not on file Active member of [...] resp. rate 16, height 1.588 m (5' 2.5), weight 72.1 kg (159 lb),SpO2 99 %. [...] with tissue valve Moderate mitral regurgitation Other medical terminologist current use of antiarrhythmic medical therapy Assessment [...] back to sinus rhythm. Dr. Washington at [facility] contacted. Mars Chung DO 01/19/2019 1:54 PM documented in this encounter Assessments Diagnosis Persistent atrial fibrillation- Primary Atrial fibrillation medical terminologist current use of antiarrhythmic medical therapy Moderate mitral regurgitation Mitral valve disorders Status post aortic valve replacement with tissue valve Heart valve replaced by other means Medications Administered Section Inactive Administered Medications - up to 3 most recent administrations Medication Order MAR Action Action Date Dose Rate Site benzocaine 20% 4 [facility] (TOPEX) 4 [facility], TOPICAL, ONCE, 1 dose, On Wed01/02/22 at [...] EXACERBATION January 11, 2025 12:3 0pm Stroke [facility] 7/6 ([place]) February 05, 2025 [...] 3am PAF (paroxysmal atrial fibrillation) Feb 8:53am Chief Complaint Admit Date CHF EXACERBATION January 07, 2025 4:29p m CHF EXACERBATION January 08, 2025 6:49p m CHF EXACERBATION January 09, 2025 2:34p m CHF EXACERBATION January 10, 2025 6:23p m CHF EXACERBATION January 11, 2025 12:3 0pm Stroke [facility] 7/6 ([place]) February 05, 2025 8:53am Establish Pacer Care [...] EXACERBATION January 11, 2025 12:3 0pm Stroke [facility] 7/6 ([place]) February 05, 2025 [...] EXACERBATION January 11, 2025 12:3 0pm Stroke [facility] 7/6 ([place]) February 05, 2025 [...] EXACERBATION January 11, 2025 12:3 0pm Stroke [facility] 7/6 ([place]) February 05, 2025 [...] EXACERBATION January 11, 2025 12:3 0pm Stroke [facility] 7/6 ([place]) February 05, 2025 [...] 2024 8:49am Chronic kidney disease, stage 3b Sept2024 8:57am Type 2 diabetes mellitus March 08, 2025 8:57am Ulcer of left foot with fat layer expose d March 08, 2025 8:57am Ulcer of right foot with fat layer expos ed March 08, 2025 8:57am Ulcer of right lower extremity with fat layer exposed March 08, 2025 8:57am PAD (peripheral artery disease) Septembe r 2024 8:57am PAF (paroxysmal atrial fibrillation) Sep tember 2024 8:57am Anemia March 13, 2025 1:46pm Chief Complaint Admit Date CHF EXACERBATION January 07, 2025 4:29p m CHF EXACERBATION January 08, 2025 6:49p m CHF EXACERBATION January 09, 2025 2:34p m CHF EXACERBATION January 10, 2025 6:23p m CHF EXACERBATION January 11, 2025 12:3 0pm Stroke [facility] 7/6 ([place]) February 05, 2025 [...] 2025 1:46pm Chronic kidney disease, stage 3b [facility] 2024 11:00am Type 2 diabetes mellitus March 15, 2025 11:00am Ulcer of left foot with fat layer expose d March 15, 2025 11:00am Ulcer of right foot with fat layer expos ed March 15, 2025 11:00am Ulcer of right lower extremity with fat layer exposed March 15, 2025 11:00am PAD (peripheral artery disease) [facility] 2024 11:00am PAF (paroxysmal atrial fibrillation) [facility] 2024 11:00am Chief Complaint Admit Date CHF EXACERBATION January 07, 2025 4:29p m CHF EXACERBATION January 08, 2025 6:49p m CHF EXACERBATION January 09, 2025 2:34p m CHF EXACERBATION January 10, 2025 6:23p m CHF EXACERBATION January 11, 2025 12:3 0pm Stroke [facility] 7/6 ([place]) February 05, 2025 [...] 8:5 3am PAF (paroxysmal atrial fibrillation) Feb ust 2024 8:53am Cardiac arrhythmia February 08, [...] 2025 1:46pm Chronic kidney disease, stage 3b Septemb 2024 11:00am Type 2 diabetes mellitus March 29, 2025 11:00am Ulcer of left foot with fat layer expose d March 29, 2025 11:00am Ulcer of right foot with fat layer expos ed March 29, 2025 11:00am Ulcer of right lower extremity with fat layer exposed March 29, 2025 11:00am PAD (peripheral artery disease) Septembe r 2024 11:00am PAF (paroxysmal atrial fibrillation) Sep tember 2024 11:00am Chief Complaint Admit Date CHF EXACERBATION January 07, 2025 4:29p m CHF EXACERBATION January 08, 2025 6:49p m CHF EXACERBATION January 09, 2025 2:34p m CHF EXACERBATION January 10, 2025 6:23p m CHF EXACERBATION January 11, 2025 12:3 0pm Stroke [facility] 7/6 ([place]) February 05, 2025 [...] PAF (paroxysmal atrial fibrillation) Feb us2024 8:53am Cardiac arrhythmia February 08, 2025 [...] 2025 1:46pm Chronic kidney disease, stage 3b [facility] 2024 11:00am Type 2 diabetes mellitus March 29, 2025 11:00am Ulcer of left foot with fat layer expose d March 29, 2025 11:00am Ulcer of right foot with fat layer expos ed March 29, 2025 11:00am Ulcer of right lower extremity with fat layer exposed March 29, 2025 11:00am PAD (peripheral artery disease) [facility] 2024 11:00am PAF (paroxysmal atrial fibrillation) [facility]2024 11:00am Chronic kidney disease, stage 3b April [...] EXACERBATION January 11, 2025 12:3 0pm Stroke [facility] 7/6 ([place]) February 05, 2025 [...] 2025 1:46pm Chronic kidney disease, stage 3b Septemb er 2024 11:00am Type 2 diabetes mellitus March 29, 2025 11:00am Ulcer of left foot with fat layer expose d March 29, 2025 11:00am Ulcer of right foot with fat layer expos ed March 29, 2025 11:00am Ulcer of right lower extremity with fat layer exposed March 29, 2025 11:00am PAD (peripheral artery disease) e r 2024 11:00am PAF (paroxysmal atrial fibrillation) Sep tember 2024 11:00am Anemia of chronic renal failure, [...] 2025 1 1:26am PAF (paroxysmal atrial fibrillation) Nov ember 2024 11:26am Chronic kidney disease, stage 3b Novembe [...] 10, 2025 11:22am PAF (paroxysmal atrial fibrillation) Nov emb2024 11:22am Chief Complaint Admit Date Stroke [facility] 7/ ([place]) February 05, 2025 8:53am Pacer Check [...] TOMOGRAPHY THORAX W/O CNTRST Doreen Le PA-C [address] [place] [address] Ct Imaging Referral ID Status Reason Start Date Expiration Date Visits Requested Visits Authorized [id number] Pending Review Auto-Generat ed Referral 07/07/2022 05/06/2023 1 1 Specialty Diagnoses / Procedures Referred By Contac t Referred To Contact Hematology Diagnoses Iron deficiency anemia due to chronic blood loss Procedures CONSULT TO HEMATOLOGY OFFICE/OUTPATIENT [facility] 60-74 MINUTES Doreen Le PA-C [address] [place] [address] Referral ID Status Reason Start Date Expiration Date Visits Requested Visits Authorized [id number] Pending Review PCP Requested Referral 04/06/2022 04/06/2023 1 1 Specialty Diagnoses / Procedures Referred By Contac t Referred To Contact MR IMAGING Diagnoses 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 Procedures MRA BRAIN WO/W IVCON MRA; HEAD W & WO CONTRAST Doreen Le PA-C [address] [place] [address] Mr Imaging Referral ID Status Reason Start Date Expiration Date Visits Requested Visits Authorized [id number] Pending Review Auto-Generat ed Referral 07/07/2022 08/06/2023 1 1 Specialty Diagnoses / Procedures Referred By Contac t Referred To Contact Vascular Surgery Diagnoses PVD (peripheral vascular disease) with claudication (HCC) Procedures CONSULT TO VASCULAR SURGERY OFFICE/OUTPATIENT [facility] 60-74 MINUTES Doreen Le PA-C [address] [place] [address] Referral ID Status Reason Start Date Expiration Date Visits Requested Visits Authorized [id number] Pending Review PCP Requested Referral 01/28/2023 01/28/2024 1 1 Specialty Diagnoses / Procedures Referred By Contac t Referred To Contact CT IMAGING Diagnoses Lung nodule, solitary Procedures CT CHEST WO IVCON DIAGNOSTIC COMPUTED TOMOGRAPHY THORAX W/O CNTRST Doreen Le PA-C [address] [place] [address] [place] [id number] Referral ID Status Reason Start Date Expiration Date V isits Requested Visits Authorized [id number] Closed Auto-Generate d Referral 07/07/2022 05/06/2023 1 1 Specialty Diagnoses / Procedures Referred By Contac t Referred To Contact Hematology Diagnoses 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 Procedures CONSULT TO HEMATOLOGY OFFICE/OUTPATIENT [facility] 60 MINUTES Dorene Le PA-C [address] [place] [address] Referral ID Status Reason Start Date Expiration Date Visits Requested Visits Authorized [id number] Authorized PCP Requested Referral 11/15/2023 11/14/2024 1 1 Additional Source Comments INFORMATION SOURCE (unrecogn ized section and content) DATE CREATED AUTHOR 12/22/2017 [facility] DATE CREATED AUTHOR AUTHOR'S ORGANIZ ATION 03/09/2019 [facility] DATE CREATED AUTHOR AUTHOR'S ORGANIZ ATION 02/21/2021 [facility] DATE CREATED AUTHOR AUTHOR'S ORGANIZ ATION 11/09/2023 [facility] DATE CREATED AUTHOR AUTHOR'S ORGANIZ ATION 02/09/2024 [facility] DATE CREATED AUTHOR AUTHOR'S ORGANIZ ATION 12/27/2024 [facility] DATE CREATED AUTHOR AUTHOR'S ORGANIZ ATION 01/02/2025 [facility] DATE CREATED AUTHOR AUTHOR'S ORGANIZ ATION 05/16/2025 [facility] Reason for Visit (unrecogniz ed section and content) Reason Comments Non-Chemotherapy Treatment Specialty Diagnoses / Procedures Referred By Contac t Referred To Contact Diagnoses 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 Procedures IRON SUCROSE INJECTION PER 1 MG Ralph Mujica DO [address] [place] [address] [facility] [address] [place] [address] Referral ID Status Reason Start Date Expiration Date V isits Requested Visits Authorized [id number] Authorized 04/07/2022 07/04/2022 99 99 Reason Comments Follow Up Specialty Diagnoses / Procedures Referred By Contac t Referred To Contact Cardiology / CARD ADMIN [facility] Diagnoses Follow-up examination 6 month follow up Procedures OFFICE/OUTPATIENT ESTABLISHED [facility] 30-39 MIN EST PATIENT Carla Burdick MD [address] [place] [address] Carla Burdick MD [address] [place] [address] Referral ID Status Reason Start Date Expiration Date Visits Re quested Visits Authorized [id number] Closed 03/30/2022 07/04/2022 1 1 Reason Comments [...] Referred By Leilani t Referred To Contact General Surgery / GENERAL SURGERY Diagnoses Acute posthemorrhagic anemia Acute blood loss anemia [D62] Heme + stool [R19.5] Sludge in gallbladder [K82.8] Epigastric pain [R10.13] Procedures OFFICE/OUTPATIENT NEW MODERATE MDM 45-59 MINUTES NEW DDI PATIENT Doreen Le PASammy [address] [place] [address] Chai Encinas MD [address] [place] [address] Referral ID Status Reason Start Date Expiration Date V isits Requested Visits Authorized [id number] 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 [...] near hairline Procedures 4C EST Self, Doreen Jackson PACarolineC [address] [place] [address] Referral ID Status Reason Start Date Expiration Date Visits Re quested Visits Authorized [id number] Closed 01/16/2022 07/04/2022 1 1 Reason Onset Date Comments Refill Request 01/19/2022 Reason Comments Patient Question ORDER FOR ABDIEL AND EC G Reason Comments Diarrhea A few weeks Specialty Diagnoses / Procedures Referred By Leilani t Referred To Contact Family Practice / FAMILY MEDICINE Diagnoses Chronic diarrhea Procedures MYC OFFICE VISIT Self, Doreen Jackson PA-C [address] [place] [address] Referral ID Status Reason Start Date Expiration Date Visits Re quested Visits Authorized [id number] Closed 02/20/2022 07/04/2022 1 1 Reason Comments Procedure Follow Up EGD completed on 01/02 Reason Onset Date Comments Transition Of Care 02/25/2022 [facility] 02/24/2023 Reason Comments Reminder Call Transesophageal Echo 03/03/22 Specialty Diagnoses / Procedures Referred By Contact Referred To Contact Cardiology / CARDIOVASCULAR MEDICINE Diagnoses Paroxysmal atrial fibrillation Presence of Watchman left atrial appendage closure device Per [facility] Procedures REFERRAL TO [facility] EST CLINICIAN Chandler Swan MD [address] [place] [address] Radha Torres APRN.CNP [address] [place] [id number] Referral ID Status Reason Start Date Expiration Date Visits Requested Visits Authorized [id number] 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 OON Notification Letter 03/03/2022 07/04/2022 1 1 Reason Onset Date Comments Transition Of Care 03/05/2022 [facility] follow up Reason Comments Edema Bilateral legs and f eet x 4-5 days Palpitations Shortness of Breath slight Specialty Diagnoses / Procedures Referred By Contac t Referred To Contact Family Practice / FAMILY MEDICINE Diagnoses Follow up to hospital stay Procedures MYC OFFICE VISIT Self Doreen Le PA-C [address] [place] [address] Referral ID Status Reason Start Date Expiration Date Visits Re quested Visits Authorized [id number] Closed 03/03/2022 07/04/2022 1 1 Reason Onset Date Comments Transition Of Care 03/20/2022 [facility] readmissi on Reason Onset Date Comments Appointment 03/21/2022 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 Reason Comments Hospital Follow [...] Reason Comments Information Reason Comments Research IRB [id number] TRIM-AF Reason Onset Date Comments Refill Request [...] THORAX W/O CNTRST Doreen Le PA-C [address] [place] [address] [place] [address] Referral ID Status Reason Start Date Expiration Date V isits Requested Visits Authorized [id number] Closed Auto-Generate d Referral 07/07/2022 05/06/2023 1 1 Reason Comments Radiology US Specialty Diagnoses / Procedures Referred By Contac t Referred To Contact US IMAGING Diagnoses Neoplasm of uncertain behavior of right kidney Procedures US KIDNEY/BLADDER US RETROPERITONEAL REAL TIME W/IMAGE COMPLETE Brayan Chicas MD [address] [place] [address] [place] [address] Referral ID Status Reason Start Date Expiration Date V isits Requested Visits Authorized [id number] Closed Auto-Generate d Referral 09/02/2022 05/09/2023 1 1 Reason Comments Cough Chest congestion x l ast night Reason Comments Patient Update Reason Comments Leg Edema Reason Comments Results Orders Reason Comments Follow Up 6 month Reason Comments Established Patient Reason Comments Initial Consult HEART FAILURE 23138 Reason Comments Transition Of Care Reason Onset Date Comments ACM CECY RN 11/16/2023 E.D. Utilizat ion Review per Payer Request. Reason Comments Patient Question Reason Comments Hospital Follow Up [facility] follow up dc'd 11/12/23 dx: CHF Reason Comments Results Reason Comments Breathing Problem Leg Edema Reason Onset Date Comments AC CECY RN 11/26/2023 ED Utilizatio n Review per request of payer Reason Comments Acute Visit Cough, chest congest ion, swollen glands x 2-3 weeks Reason Comments Appointment Reason Comments Recheck Reason Comments Hospital F/U Reason Comments Breathing Problem Leg Edema Reason Comments Follow Up hospital follow up- CHF in [facility] for 23 days, discharged October 28 Reason [...] or prosecute any alcohol or drug abuse patient.[facility] the event this information is protected by the Federal Confidentiality of Alcohol and Drug Abuse Patient Records regulations: The Federal rules restrict any use of the information to criminally investigate or prosecute any alcohol or drug abuse patient.[facility] CenterIn the event this information is protected by the Federal Confidentiality of Alcohol and Drug Abuse Patient Records regulations: The Federal rules restrict any use of the information to criminally investigate or prosecute any alcohol or drug abuse patient.[facility] CenterIn the event this information is protected by the Federal Confidentiality of Alcohol and Drug Abuse Patient Records regulations: The Federal rules restrict any use of the information to criminally investigate or prosecute any alcohol or drug abuse patient.[facility] CenterIn the event this information is protected by the Federal Confidentiality of Alcohol and Drug Abuse Patient Records regulations: The Federal rules restrict any use of the information to criminally investigate or prosecute any alcohol or drug abuse patient.[facility] CenterIn the event this information is protected by the Federal Confidentiality of Alcohol and Drug Abuse Patient Records regulations: The Federal rules restrict any use of the information to criminally investigate or prosecute any alcohol or drug abuse patient.[facility] CenterIn the event this information is protected by the Federal Confidentiality of Alcohol and Drug Abuse Patient Records regulations: The Federal rules restrict any use of the information to criminally investigate or prosecute any alcohol or drug abuse patient.[facility] CenterIn the event this information is protected by the Federal Confidentiality of Alcohol and Drug Abuse Patient Records regulations: The Federal rules restrict any use of the information to criminally investigate or prosecute any alcohol or drug abuse patient.[facility] CenterIn the event this information is protected by the Federal Confidentiality of Alcohol and Drug Abuse Patient Records regulations: The Federal rules restrict any use of the information to criminally investigate or prosecute any alcohol or drug abuse patient.[facility] CenterIn the event this information is protected by the Federal Confidentiality of Alcohol and Drug Abuse Patient Records regulations: The Federal rules restrict any use of the information to criminally investigate or prosecute any alcohol or drug abuse patient.[facility] CenterIn the event this information is protected by the Federal Confidentiality of Alcohol and Drug Abuse Patient Records regulations: The Federal rules restrict any use of the information to criminally investigate or prosecute any alcohol or drug abuse patient.[facility] the event this information is protected by the Federal Confidentiality of Alcohol and Drug Abuse Patient Records regulations: The Federal rules restrict any use of the information to criminally investigate or prosecute any alcohol or drug abuse patient.[facility] CenterIn the event this information is protected by the Federal Confidentiality of Alcohol and Drug Abuse Patient Records regulations: The Federal rules restrict any use of the information to criminally investigate or prosecute any alcohol or drug abuse patient.[facility] CenterIn the event this information is [...] or prosecute any alcohol or drug abuse patient.[facility] CenterIn the event this information is protected by the Federal Confidentiality of Alcohol and Drug Abuse Patient Records regulations: The Federal rules restrict any use of the information to criminally investigate or prosecute any alcohol or drug abuse patient.[facility] CenterIn the event this information is protected by the Federal Confidentiality of Alcohol and Drug Abuse Patient Records regulations: The Federal rules restrict any use of the information to criminally investigate or prosecute any alcohol or drug abuse patient.[facility] CenterIn the event this information is protected by the Federal Confidentiality of Alcohol and Drug Abuse Patient Records regulations: The Federal rules restrict any use of the information to criminally investigate or prosecute any alcohol or drug abuse patient.[facility] CenterIn the event this information is protected by the Federal Confidentiality of Alcohol and Drug Abuse Patient Records regulations: The Federal rules restrict any use of the information to criminally investigate or prosecute any alcohol or drug abuse patient.[facility] CenterIn the event this information is protected by the Federal Confidentiality of Alcohol and Drug Abuse Patient Records regulations: The Federal rules restrict any use of the information to criminally investigate or prosecute any alcohol or drug abuse patient.[facility] CenterIn the event this information is protected by the Federal Confidentiality of Alcohol and Drug Abuse Patient Records regulations: The Federal rules restrict any use of the information to criminally investigate or prosecute any alcohol or drug abuse patient.[facility] CenterIn the event this information is protected by the Federal Confidentiality of Alcohol and Drug Abuse Patient Records regulations: The Federal rules restrict any use of the information to criminally investigate or prosecute any alcohol or drug abuse patient.[facility] CenterIn the event this information is protected by the Federal Confidentiality of Alcohol and Drug Abuse Patient Records regulations: The Federal rules restrict any use of the information to criminally investigate or prosecute any alcohol or drug abuse patient.[facility] CenterIn the event this information is protected by the Federal Confidentiality of Alcohol and Drug Abuse Patient Records regulations: The Federal rules restrict any use of the information to criminally investigate or prosecute any alcohol or drug abuse patient.[facility] CenterIn the event this information is protected by the Federal Confidentiality of Alcohol and Drug Abuse Patient Records regulations: The Federal rules restrict any use of the information to criminally investigate or prosecute any alcohol or drug abuse patient.[facility] CenterIn the event this information is protected by the Federal Confidentiality of Alcohol and Drug Abuse Patient Records regulations: The Federal rules restrict any use of the information to criminally investigate or prosecute any alcohol or drug abuse patient.[facility] CenterIn the event this information is protected by the Federal Confidentiality of Alcohol and Drug Abuse Patient Records regulations: The Federal rules restrict any use of the information to criminally investigate or prosecute any alcohol or drug abuse patient.[facility] CenterIn the event this information is protected by the Federal Confidentiality of Alcohol and Drug Abuse Patient Records regulations: The Federal rules restrict any use of the information to criminally investigate or prosecute any alcohol or drug abuse patient.[facility] CenterIn the event this information is protected by the Federal Confidentiality of Alcohol and Drug Abuse Patient Records regulations: The Federal rules restrict any use of the information to criminally investigate or prosecute any alcohol or drug abuse patient.[facility] CenterIn the event this information is protected by the Federal Confidentiality of Alcohol and Drug Abuse Patient Records regulations: The Federal rules restrict any use of the information to criminally investigate or prosecute any alcohol or drug abuse patient.[facility] CenterIn the event this information is protected by the Federal Confidentiality of Alcohol and Drug Abuse Patient Records regulations: The Federal rules restrict any use of the information to criminally investigate or prosecute any alcohol or drug abuse patient.[facility] CenterIn the event this information is protected by the Federal Confidentiality of Alcohol and Drug Abuse Patient Records regulations: The Federal rules restrict any use of the information to criminally investigate or prosecute any alcohol or drug abuse patient.[facility] CenterIn the event this information is protected by the Federal Confidentiality of Alcohol and Drug Abuse Patient Records regulations: The Federal rules restrict any use of the information to criminally investigate or prosecute any alcohol or drug abuse patient.[facility] CenterIn the event this information is protected by the Federal Confidentiality of Alcohol and Drug Abuse Patient Records regulations: The Federal rules restrict any use of the information to criminally investigate or prosecute any alcohol or drug abuse patient.[facility] CenterIn the event this information is protected by the Federal Confidentiality of Alcohol and Drug Abuse Patient Records regulations: The Federal rules restrict any use of the information to criminally investigate or prosecute any alcohol or drug abuse patient.[facility] CenterIn the event this information is protected by the Federal Confidentiality of Alcohol and Drug Abuse Patient Records regulations: The Federal rules restrict any use of the information to criminally investigate or prosecute any alcohol or drug abuse patient.[facility] CenterIn the event this information is protected by the Federal Confidentiality of Alcohol and Drug Abuse Patient Records regulations: The Federal rules restrict any use of the information to criminally investigate or prosecute any alcohol or drug abuse patient.[facility] CenterIn the event this information is protected by the Federal Confidentiality of Alcohol and Drug Abuse Patient Records regulations: The Federal rules restrict any use of the information to criminally investigate or prosecute any alcohol or drug abuse patient.[facility] CenterIn the event this information is protected by the Federal Confidentiality of Alcohol and Drug Abuse Patient Records regulations: The Federal rules restrict any use of the information to criminally investigate or prosecute any alcohol or drug abuse patient.[facility] CenterIn the event this information is protected by the Federal Confidentiality of Alcohol and Drug Abuse Patient Records regulations: The Federal rules restrict any use of the information to criminally investigate or prosecute any alcohol or drug abuse patient.[facility] CenterIn the event this information is protected by the Federal Confidentiality of Alcohol and Drug Abuse Patient Records regulations: The Federal rules restrict any use of the information to criminally investigate or prosecute any alcohol or drug abuse patient.[facility] CenterIn the event this information is protected by the Federal Confidentiality of Alcohol and Drug Abuse Patient Records regulations: The Federal rules restrict any use of the information to criminally investigate or prosecute any alcohol or drug abuse patient.[facility] CenterIn the event this information is protected by the Federal Confidentiality of Alcohol and Drug Abuse Patient Records regulations: The Federal rules restrict any use of the information to criminally investigate or prosecute any alcohol or drug abuse patient.[facility] CenterIn the event this information is protected by the Federal Confidentiality of Alcohol and Drug Abuse Patient Records regulations: The Federal rules restrict any use of the information to criminally investigate or prosecute any alcohol or drug abuse patient.[facility] CenterIn the event this information is protected by the Federal Confidentiality of Alcohol and Drug Abuse Patient Records regulations: The Federal rules restrict any use of the information to criminally investigate or prosecute any alcohol or drug abuse patient.[facility] CenterIn the event this information is protected by the Federal Confidentiality of Alcohol and Drug Abuse Patient Records regulations: The Federal rules restrict any use of the information to criminally investigate or prosecute any alcohol or drug abuse patient.[facility] CenterIn the event this information is protected by the Federal Confidentiality of Alcohol and Drug Abuse Patient Records regulations: The Federal rules restrict any use of the information to criminally investigate or prosecute any alcohol or drug abuse patient.[facility] CenterIn the event this information is protected by the Federal Confidentiality of Alcohol and Drug Abuse Patient Records regulations: The Federal rules restrict any use of the information to criminally investigate or prosecute any alcohol or drug abuse patient.[facility] CenterIn the event this information is protected by the Federal Confidentiality of Alcohol and Drug Abuse Patient Records regulations: The Federal rules restrict any use of the information to criminally investigate or prosecute any alcohol or drug abuse patient.[facility] CenterIn the event this information is protected by the Federal Confidentiality of Alcohol and Drug Abuse Patient Records regulations: The Federal rules restrict any use of the information to criminally investigate or prosecute any alcohol or drug abuse patient.[facility] CenterIn the event this information is protected by the Federal Confidentiality of Alcohol and Drug Abuse Patient Records regulations: The Federal rules restrict any use of the information to criminally investigate or prosecute any alcohol or drug abuse patient.[facility] CenterIn the event this information is protected by the Federal Confidentiality of Alcohol and Drug Abuse Patient Records regulations: The Federal rules restrict any use of the information to criminally investigate or prosecute any alcohol or drug abuse patient.[facility] CenterIn the event this information is protected by the Federal Confidentiality of Alcohol and Drug Abuse Patient Records regulations: The Federal rules restrict any use of the information to criminally investigate or prosecute any alcohol or drug abuse patient.[facility] CenterIn the event this information is protected by the Federal Confidentiality of Alcohol and Drug Abuse Patient Records regulations: The Federal rules restrict any use of the information to criminally investigate or prosecute any alcohol or drug abuse patient.[facility] CenterIn the event this information is protected by the Federal Confidentiality of Alcohol and Drug Abuse Patient Records regulations: The Federal rules restrict any use of the information to criminally investigate or prosecute any alcohol or drug abuse patient.[facility] CenterIn the event this information is protected by the Federal Confidentiality of Alcohol and Drug Abuse Patient Records regulations: The Federal rules restrict any use of the information to criminally investigate or prosecute any alcohol or drug abuse patient.[facility] CenterIn the event this information is protected by the Federal Confidentiality of Alcohol and Drug Abuse Patient Records regulations: The Federal rules restrict any use of the information to criminally investigate or prosecute any alcohol or drug abuse patient.[facility] CenterIn the event this information is protected by the Federal Confidentiality of Alcohol and Drug Abuse Patient Records regulations: The Federal rules restrict any use of the information to criminally investigate or prosecute any alcohol or drug abuse patient.[facility] CenterIn the event this information is protected by the Federal Confidentiality of Alcohol and Drug Abuse Patient Records regulations: The Federal rules restrict any use of the information to criminally investigate or prosecute any alcohol or drug abuse patient.[facility] CenterIn the event this information is protected by the Federal Confidentiality of Alcohol and Drug Abuse Patient Records regulations: The Federal rules restrict any use of the information to criminally investigate or prosecute any alcohol or drug abuse patient.[facility] CenterIn the event this information is protected by the Federal Confidentiality of Alcohol and Drug Abuse Patient Records regulations: The Federal rules restrict any use of the information to criminally investigate or prosecute any alcohol or drug abuse patient.[facility] the event this information is protected by the Federal Confidentiality of Alcohol and Drug Abuse Patient Records regulations: The Federal rules restrict any use of the information to criminally investigate or prosecute any alcohol or drug abuse patient.[facility] CenterIn the event this information is protected by the Federal Confidentiality of Alcohol and Drug Abuse Patient Records regulations: The Federal rules restrict any use of the information to criminally investigate or prosecute any alcohol or drug abuse patient.[facility] CenterIn the event this information is [...] or prosecute any alcohol or drug abuse patient.[facility] CenterIn the event this information is protected by the Federal Confidentiality of Alcohol and Drug Abuse Patient Records regulations: The Federal rules restrict any use of the information to criminally investigate or prosecute any alcohol or drug abuse patient.[facility] CenterIn the event this information is protected by the Federal Confidentiality of Alcohol and Drug Abuse Patient Records regulations: The Federal rules restrict any use of the information to criminally investigate or prosecute any alcohol or drug abuse patient.[facility] CenterIn the event this information is protected by the Federal Confidentiality of Alcohol and Drug Abuse Patient Records regulations: The Federal rules restrict any use of the information to criminally investigate or prosecute any alcohol or drug abuse patient.[facility] CenterIn the event this information is protected by the Federal Confidentiality of Alcohol and Drug Abuse Patient Records regulations: The Federal rules restrict any use of the information to criminally investigate or prosecute any alcohol or drug abuse patient.[facility] CenterIn the event this information is protected by the Federal Confidentiality of Alcohol and Drug Abuse Patient Records regulations: The Federal rules restrict any use of the information to criminally investigate or prosecute any alcohol or drug abuse patient.[facility] CenterIn the event this information is protected by the Federal Confidentiality of Alcohol and Drug Abuse Patient Records regulations: The Federal rules restrict any use of the information to criminally investigate or prosecute any alcohol or drug abuse patient.[facility] CenterIn the event this information is protected by the Federal Confidentiality of Alcohol and Drug Abuse Patient Records regulations: The Federal rules restrict any use of the information to criminally investigate or prosecute any alcohol or drug abuse patient.[facility] CenterIn the event this information is protected by the Federal Confidentiality of Alcohol and Drug Abuse Patient Records regulations: The Federal rules restrict any use of the information to criminally investigate or prosecute any alcohol or drug abuse patient.[facility] CenterIn the event this information is protected by the Federal Confidentiality of Alcohol and Drug Abuse Patient Records regulations: The Federal rules restrict any use of the information to criminally investigate or prosecute any alcohol or drug abuse patient.[facility] CenterIn the event this information is protected by the Federal Confidentiality of Alcohol and Drug Abuse Patient Records regulations: The Federal rules restrict any use of the information to criminally investigate or prosecute any alcohol or drug abuse patient.[facility] CenterIn the event this information is protected by the Federal Confidentiality of Alcohol and Drug Abuse Patient Records regulations: The Federal rules restrict any use of the information to criminally investigate or prosecute any alcohol or drug abuse patient.[facility] CenterIn the event this information is protected by the Federal Confidentiality of Alcohol and Drug Abuse Patient Records regulations: The Federal rules restrict any use of the information to criminally investigate or prosecute any alcohol or drug abuse patient.[facility] CenterIn the event this information is protected by the Federal Confidentiality of Alcohol and Drug Abuse Patient Records regulations: The Federal rules restrict any use of the information to criminally investigate or prosecute any alcohol or drug abuse patient.[facility] CenterIn the event this information is protected by the Federal Confidentiality of Alcohol and Drug Abuse Patient Records regulations: The Federal rules restrict any use of the information to criminally investigate or prosecute any alcohol or drug abuse patient.[facility] CenterIn the event this information is protected by the Federal Confidentiality of Alcohol and Drug Abuse Patient Records regulations: The Federal rules restrict any use of the information to criminally investigate or prosecute any alcohol or drug abuse patient.[facility] CenterIn the event this information is protected by the Federal Confidentiality of Alcohol and Drug Abuse Patient Records regulations: The Federal rules restrict any use of the information to criminally investigate or prosecute any alcohol or drug abuse patient.[facility] CenterIn the event this information is protected by the Federal Confidentiality of Alcohol and Drug Abuse Patient Records regulations: The Federal rules restrict any use of the information to criminally investigate or prosecute any alcohol or drug abuse patient.[facility] CenterIn the event this information is protected by the Federal Confidentiality of Alcohol and Drug Abuse Patient Records regulations: The Federal rules restrict any use of the information to criminally investigate or prosecute any alcohol or drug abuse patient.[facility] CenterIn the event this information is protected by the Federal Confidentiality of Alcohol and Drug Abuse Patient Records regulations: The Federal rules restrict any use of the information to criminally investigate or prosecute any alcohol or drug abuse patient.[facility] CenterIn the event this information is protected by the Federal Confidentiality of Alcohol and Drug Abuse Patient Records regulations: The Federal rules restrict any use of the information to criminally investigate or prosecute any alcohol or drug abuse patient.[facility] CenterIn the event this information is protected by the Federal Confidentiality of Alcohol and Drug Abuse Patient Records regulations: The Federal rules restrict any use of the information to criminally investigate or prosecute any alcohol or drug abuse patient.[facility] CenterIn the event this information is protected by the Federal Confidentiality of Alcohol and Drug Abuse Patient Records regulations: The Federal rules restrict any use of the information to criminally investigate or prosecute any alcohol or drug abuse patient.[facility] CenterIn the event this information is protected by the Federal Confidentiality of Alcohol and Drug Abuse Patient Records regulations: The Federal rules restrict any use of the information to criminally investigate or prosecute any alcohol or drug abuse patient.[facility] CenterIn the event this information is protected by the Federal Confidentiality of Alcohol and Drug Abuse Patient Records regulations: The Federal rules restrict any use of the information to criminally investigate or prosecute any alcohol or drug abuse patient.[facility] CenterIn the event this information is protected by the Federal Confidentiality of Alcohol and Drug Abuse Patient Records regulations: The Federal rules restrict any use of the information to criminally investigate or prosecute any alcohol or drug abuse patient.[facility] CenterIn the event this information is protected by the Federal Confidentiality of Alcohol and Drug Abuse Patient Records regulations: The Federal rules restrict any use of the information to criminally investigate or prosecute any alcohol or drug abuse patient.[facility] CenterIn the event this information is protected by the Federal Confidentiality of Alcohol and Drug Abuse Patient Records regulations: The Federal rules restrict any use of the information to criminally investigate or prosecute any alcohol or drug abuse patient.[facility] CenterIn the event this information is protected by the Federal Confidentiality of Alcohol and Drug Abuse Patient Records regulations: The Federal rules restrict any use of the information to criminally investigate or prosecute any alcohol or drug abuse patient.[facility] CenterIn the event this information is protected by the Federal Confidentiality of Alcohol and Drug Abuse Patient Records regulations: The Federal rules restrict any use of the information to criminally investigate or prosecute any alcohol or drug abuse patient.[facility] CenterIn the event this information is protected by the Federal Confidentiality of Alcohol and Drug Abuse Patient Records regulations: The Federal rules restrict any use of the information to criminally investigate or prosecute any alcohol or drug abuse patient.[facility] CenterIn the event this information is protected by the Federal Confidentiality of Alcohol and Drug Abuse Patient Records regulations: The Federal rules restrict any use of the information to criminally investigate or prosecute any alcohol or drug abuse patient.[facility] CenterIn the event this information is protected by the Federal Confidentiality of Alcohol and Drug Abuse Patient Records regulations: The Federal rules restrict any use of the information to criminally investigate or prosecute any alcohol or drug abuse patient.[facility] CenterIn the event this information is protected by the Federal Confidentiality of Alcohol and Drug Abuse Patient Records regulations: The Federal rules restrict any use of the information to criminally investigate or prosecute any alcohol or drug abuse patient.[facility] CenterIn the event this information is protected by the Federal Confidentiality of Alcohol and Drug Abuse Patient Records regulations: The Federal rules restrict any use of the information to criminally investigate or prosecute any alcohol or drug abuse patient.[facility] CenterIn the event this information is protected by the Federal Confidentiality of Alcohol and Drug Abuse Patient Records regulations: The Federal rules restrict any use of the information to criminally investigate or prosecute any alcohol or drug abuse patient.[facility] CenterIn the event this information is protected by the Federal Confidentiality of Alcohol and Drug Abuse Patient Records regulations: The Federal rules restrict any use of the information to criminally investigate or prosecute any alcohol or drug abuse patient.[facility] CenterIn the event this information is protected by the Federal Confidentiality of Alcohol and Drug Abuse Patient Records regulations: The Federal rules restrict any use of the information to criminally investigate or prosecute any alcohol or drug abuse patient.[facility] CenterIn the event this information is protected by the Federal Confidentiality of Alcohol and Drug Abuse Patient Records regulations: The Federal rules restrict any use of the information to criminally investigate or prosecute any alcohol or drug abuse patient.[facility] CenterIn the event this information is protected by the Federal Confidentiality of Alcohol and Drug Abuse Patient Records regulations: The Federal rules restrict any use of the information to criminally investigate or prosecute any alcohol or drug abuse patient.[facility] CenterIn the event this information is protected by the Federal Confidentiality of Alcohol and Drug Abuse Patient Records regulations: The Federal rules restrict any use of the information to criminally investigate or prosecute any alcohol or drug abuse patient.[facility] CenterIn the event this information is protected by the Federal Confidentiality of Alcohol and Drug Abuse Patient Records regulations: The Federal rules restrict any use of the information to criminally investigate or prosecute any alcohol or drug abuse patient.[facility] CenterIn the event this information is protected by the Federal Confidentiality of Alcohol and Drug Abuse Patient Records regulations: The Federal rules restrict any use of the information to criminally investigate or prosecute any alcohol or drug abuse patient.[facility] CenterIn the event this information is protected by the Federal Confidentiality of Alcohol and Drug Abuse Patient Records regulations: The Federal rules restrict any use of the information to criminally investigate or prosecute any alcohol or drug abuse patient.[facility] CenterIn the event this information is protected by the Federal Confidentiality of Alcohol and Drug Abuse Patient Records regulations: The Federal rules restrict any use of the information to criminally investigate or prosecute any alcohol or drug abuse patient.[facility] CenterIn the event this information is protected by the Federal Confidentiality of Alcohol and Drug Abuse Patient Records regulations: The Federal rules restrict any use of the information to criminally investigate or prosecute any alcohol or drug abuse patient.[facility] CenterIn the event this information is protected by the Federal Confidentiality of Alcohol and Drug Abuse Patient Records regulations: The Federal rules restrict any use of the information to criminally investigate or prosecute any alcohol or drug abuse patient.[facility] the event this information is protected by the Federal Confidentiality of Alcohol and Drug Abuse Patient Records regulations: The Federal rules restrict any use of the information to criminally investigate or prosecute any alcohol or drug abuse patient.[facility] CenterIn the event this information is protected by the Federal Confidentiality of Alcohol and Drug Abuse Patient Records regulations: The Federal rules restrict any use of the information to criminally investigate or prosecute any alcohol or drug abuse patient.[facility] CenterIn the event this information is [...] or prosecute any alcohol or drug abuse patient.[facility] CenterIn the event this information is protected by the Federal Confidentiality of Alcohol and Drug Abuse Patient Records regulations: The Federal rules restrict any use of the information to criminally investigate or prosecute any alcohol or drug abuse patient.[facility] CenterIn the event this information is protected by the Federal Confidentiality of Alcohol and Drug Abuse Patient Records regulations: The Federal rules restrict any use of the information to criminally investigate or prosecute any alcohol or drug abuse patient.[facility]In the event this information is protected by the Federal Confidentiality of Alcohol and Drug Abuse Patient Records regulations: The Federal rules restrict any use of the information to criminally investigate or prosecute any alcohol or drug abuse patient.[facility]In the event this information is protected by the Federal Confidentiality of Alcohol and Drug Abuse Patient Records regulations: The Federal rules restrict any use of the information to criminally investigate or prosecute any alcohol or drug abuse patient.[facility] CenterIn the event this information is protected by the Federal Confidentiality of Alcohol and Drug Abuse Patient Records regulations: The Federal rules restrict any use of the information to criminally investigate or prosecute any alcohol or drug abuse patient.[facility] CenterIn the event this information is protected by the Federal Confidentiality of Alcohol and Drug Abuse Patient Records regulations: The Federal rules restrict any use of the information to criminally investigate or prosecute any alcohol or drug abuse patient.[facility]In the event this information is protected by the Federal Confidentiality of Alcohol and Drug Abuse Patient Records regulations: The Federal rules restrict any use of the information to criminally investigate or prosecute any alcohol or drug abuse patient.[facility] CenterIn the event this information is protected by the Federal Confidentiality of Alcohol and Drug Abuse Patient Records regulations: The Federal rules restrict any use of the information to criminally investigate or prosecute any alcohol or drug abuse patient.[facility] CenterIn the event this information is protected by the Federal Confidentiality of Alcohol and Drug Abuse Patient Records regulations: The Federal rules restrict any use of the information to criminally investigate or prosecute any alcohol or drug abuse patient.[facility] CenterIn the event this information is protected by the Federal Confidentiality of Alcohol and Drug Abuse Patient Records regulations: The Federal rules restrict any use of the information to criminally investigate or prosecute any alcohol or drug abuse patient.[facility] Care Teams (unrecognized sec tion and content) Dietetic Aide Relationship Specialty Start Date End Date Doreen Le PA-C [address] [place] [address] PCP - General Family Practice 11/26/16 No, Referral Referring 01/31/19 [place] [address] [place], [place] [id number] Primary Staff Physician Cardiology 07/15/21 Dietetic Aide Relationship Specialty Start Date End Date Doreen Le PA-C [address] [place], [place] [address] PCP - General Family Practice 11/26/16 No, Referral Referring 01/31/19 [place] [address] [place], [place] [id number] Primary Staff Physician Cardiology 07/15/21 Dietetic Aide Relationship Specialty Start Date End Date Doreen Le PA-C [address] [place], [place] [address]591 PCP - General Family Practice 11/26/16 No, Referral Referring 01/31/19 [place] [address] [facility] [place] [place] [id number] Primary Staff Physician Cardiology 07/15/21 Dietetic Aide Relationship Specialty Start Date End Date Doreen Le PA-C [address] [place] [address] PCP - General Family Practice 11/26/16 No, Referral Referring 01/31/19 [place] [address] [place], [place] [id number] [phone] Primary Staff Physician Cardiology 07/15/21 Dietetic Aide Relationship Specialty Start Date End Date Doreen Le PA-C [address] [place] [address] PCP - General Family Practice 11/26/16 No, Referral Referring 01/31/19 [place] [address] [place], [place] [id number] [phone] Primary Staff Physician Cardiology 07/15/21 Dietetic Aide Relationship Specialty Start Date End Date Doreen Le PA-C [address] [place], [place] [address] PCP - General Family Practice 11/26/16 No, Referral Referring 01/31/19 [place] [address] [place], [place] 8264021 [phone] Primary Staff Physician Cardiology 07/15/21 Dietetic Aide Relationship Specialty Start Date End Date Doreen Le PA-C [address] [place] [address] PCP - General Family Practice 11/26/16 No, Referral Referring 01/31/19 [place] [address] [place], [place] [id number] [phone] Primary Staff Physician Cardiology 07/15/21 Dietetic Aide Relationship Specialty Start Date End Date Doreen Le PA-C [address] [place] [address] PCP - General Family Practice 11/26/16 No, Referral Referring 01/31/19 [place] [address] [facility] [place] [address] Primary Staff Physician Cardiology 07/15/21 Dietetic Aide Relationship Specialty Start Date End Date Doreen Le PA-C [address] [place] [address] PCP - General Family Practice 11/26/16 No, Referral Referring 01/31/19 [place] [address] [place], [place] 5329054 [phone] Primary Staff Physician Cardiology 07/15/21 Dietetic Aide Relationship Specialty Start Date End Date Doreen Le PA-C [address] [place], [place] [id number] PCP - General Family Practice 11/26/16 No, Referral Referring 01/31/19 [place] [address] [place], [place] [phone] Primary Staff Physician Cardiology 07/15/21 Dietetic Aide Relationship Specialty Start Date End Date Doreen Le PA-C [address] [place], [place] [id number] PCP - General Family Practice 11/26/16 No, Referral Referring 01/31/19 [place] [address] [place], [place] 4549312 [phone] Primary Staff Physician Cardiology 07/15/21 Dietetic Aide Relationship Specialty Start Date End Date Doreen Le PA-C [address] [place] [address] PCP - General Family Practice 11/26/16 No, Referral Referring 01/31/19 [place] [address] [place] [address] Primary Staff Physician Cardiology 07/15/21 Dietetic Aide Relationship Specialty Start Date End Date Doreen Le PA-C [address] [place] [address] PCP - General Family Practice 11/26/16 No, Referral Referring 01/31/19 [place] [address] [place], [place] [id number] [phone] Primary Staff Physician Cardiology 07/15/21 Dietetic Aide Relationship Specialty Start Date End Date Doreen Le PA-C [address] [place] [address] PCP - General Family Practice 11/26/16 No, Referral Referring 01/31/19 [place] [address] [place], [place] [id number] [phone] Primary Staff Physician Cardiology 07/15/21 Dietetic Aide Relationship Specialty Start Date End Date Doreen Le PA-C [address] [place] [address] PCP - General Family Practice 11/26/16 No, Referral Referring 01/31/19 [place] [address] [facility] [place] [place] [id number] [phone] Primary Staff Physician Cardiology 07/15/21 Dietetic Aide Relationship Specialty Start Date End Date Doreen Le PA-C [address] [place] [address] PCP - General Family Practice 11/26/16 No, Referral Referring 01/31/19 [place] [address] [place], [place] [id number] [phone] Primary Staff Physician Cardiology 07/15/21 Dietetic Aide Relationship Specialty Start Date End Date Doreen Le PA-C [address] [place] [address] PCP - General Family Practice 11/26/16 No, Referral Referring 01/31/19 [place] [address] [facility] [place] [place] [id number] [phone] Primary Staff Physician Cardiology 07/15/21 Dietetic Aide Relationship Specialty Start Date End Date Doreen Le PA-C [address] [place] [address] PCP - General Family Practice 11/26/16 No, Referral Referring 01/31/19 [place] [address] [address], [place] [phone] Primary Staff Physician Cardiology 07/15/21 Sheridan Cervantes RN Primary Care Telecom Network Manager 02/25/22 03/27/22 Dietetic Aide Relationship Specialty Start Date End Date Doreen Le PA-C [address] [place] [address] PCP - General Family Practice 11/26/16 No, Referral Referring 01/31/19 [place] [address] [facility] [place] [place] [id number] Primary Staff Physician Cardiology 07/15/21 Sheridan Cervantes RN Primary Care Telecom Network Manager 02/25/22 03/27/22 Carla Burdick MD [address] [place] [address] Cardiology 03/03/22 03/03/22 Carla Burdick MD [address] [place] [address] Primary Staff Physician Cardiology 03/03/22 Dietetic Aide Relationship Specialty Start Date End Date Doreen Le PA-C [address] [place] [address] PCP - General Family Practice 11/26/16 No, Referral Referring 01/31/19 [place] [address] [facility] [place] [place] [id number] Primary Staff Physician Cardiology 07/15/21 Sheridna Cervantes RN Primary Care Telecom Network Manager 02/25/22 03/27/22 Carla Burdick MD [address] [place] [address] Cardiology 03/03/22 03/03/22 Carla Burdick MD [address] [place] [address] Primary Staff Physician Cardiology 03/03/22 Dietetic Aide Relationship Specialty Start Date End Date Doreen Le PA-C [address] [place] [address] PCP - General Family Practice 11/26/16 No, Referral Referring 01/31/19 [place] [address] [place], [place] [id number] Primary Staff Physician Cardiology 07/15/21 Sheridan Cervantes RN Primary Care Telecom Network Manager 02/25/22 03/27/22 Carla Burdick MD [address] [place] [address] Primary Staff Physician Cardiology 03/03/22 Dietetic Aide Relationship Specialty Start Date End Date Doreen Le PA-C [address] [place] [address] PCP - General Family Practice 11/26/16 No, Referral Referring 01/31/19 [place] [address] [address], [place] 2581726 Primary Staff Physician Cardiology 07/15/21 Sheridan Cervantes RN Primary Care Telecom Network Manager 02/25/22 03/27/22 Carla Burdick MD [address] [place] [address] Primary Staff Physician Cardiology 03/03/22 Dietetic Aide Relationship Specialty Start Date End Date Doreen Le PA-C [address] [place] [address] PCP - General Family Practice 11/26/16 No, Referral Referring 01/31/19 [place] [address] [facility] [place] 7529226 Primary Staff Physician Cardiology 07/15/21 Sheridan Cervantes, compressor service technician Telecom Network Manager 02/25/22 03/27/22 Carla Burdick MD [address] [facility] [place] [place] 395[address] Primary Staff Physician Cardiology 03/03/22 Dietetic Aide Relationship Specialty Start Date End Date Doreen Le PA-C [address] [place] [address] PCP - General Family Practice 11/26/16 No, Referral Referring 01/31/19 [place] [address] [place], [place] 0707226 Primary Staff Physician Cardiology 07/15/21 Carla Burdick MD [address] [place] [address] Primary Staff Physician Cardiology 03/03/22 Dietetic Aide Relationship Specialty Start Date End Date Doreen Le PA-C [address] [place] [address] PCP - General Family Practice 11/26/16 No, Referral Referring 01/31/19 [place] [address] [facility] [place] 9108698 [phone] Primary Staff Physician Cardiology 07/15/21 Carla Burdick MD [address] [place] [address] Primary Staff Physician Cardiology 03/03/22 Dietetic Aide Relationship Specialty Start Date End Date Doreen Le PA-C [address] [place] [address] PCP - General Family Medicine 11/26/16 No, Referral Referring 01/31/19 [place] [address] [place], [place] 4628624 [phone] Primary Staff Physician Cardiology 07/15/21 Carla Burdick MD [address] [place] [address] Primary Staff Physician Cardiology 03/03/22 Dietetic Aide Relationship Specialty Start Date End Date Doreen Le PA-C [address] [place] [address] PCP - General Family Medicine 11/26/16 No, Referral Referring 01/31/19 [place] [address] [facility] [place] [address] Primary Staff Physician Cardiology 07/15/21 Carla Burdick MD [address] [place] [address] Primary Staff Physician Cardiology 03/03/22 Dietetic Aide Relationship Specialty Start Date End Date Doreen Le PA-C [address] [place] [address] PCP - General Family Medicine 11/26/16 No, Referral Referring 01/31/19 [place] [address] [facility] [place] [address] Primary Staff Physician Cardiology 07/15/21 Carla Burdick MD [address] [place] [address] Primary Staff Physician Cardiology 03/03/22 Dietetic Aide Relationship Specialty Start Date End Date Doreen Le PA-C [address] [place] [address] PCP - General Family Medicine 11/26/16 No, Referral Referring 01/31/19 [place] [address] [facility] [place] [id number] [phone] Primary Staff Physician Cardiology 07/15/21 Carla Burdick MD [address] [place] [address] Cardiology 03/03/22 03/03/22 Carla Burdick MD [address] [place] [address] Primary Staff Physician Cardiology 03/03/22 Dietetic Aide Relationship Specialty Start Date End Date Doreen Le PA-C [address] [place] [address] PCP - General Family Medicine 11/26/16 No, Referral Referring 01/31/19 [place] [address] [place] [address] Primary Staff Physician Cardiology 07/15/21 Carla Burdick MD [address] [place] [address] Primary Staff Physician Cardiology 03/03/22 Dietetic Aide Relationship Specialty Start Date End Date Doreen Le PA-C [address] [place] [address] PCP - General Family Medicine 11/26/16 No, Referral Referring 01/31/19 [place] [address] [facility] [place] 0889591 [phone] Primary Staff Physician Cardiology 07/15/21 Carla Burdick MD [address] [place] [address] Primary Staff Physician Cardiology 03/03/22 Dietetic Aide Relationship Specialty Start Date End Date Doreen Le PA-C [address] [place] [address] PCP - General Family Medicine 11/26/16 No, Referral Referring 01/31/19 [place] [address] [facility] [place] 8597015 [phone] Primary Staff Physician Cardiology 07/15/21 Carla Burdick MD [address] [place] [address] Primary Staff Physician Cardiology 03/03/22 Dietetic Aide Relationship Specialty Start Date End Date Doreen Le PA-C [address] [place] [address] PCP - General Family Medicine 11/26/16 No, Referral Referring 01/31/19 [place] [address] [facility] [place] [address] Primary Staff Physician Cardiology 07/15/21 Carla Burdick MD [address] [place] [address] Primary Staff Physician Cardiology 03/03/22 Dietetic Aide Relationship Specialty Start Date End Date Doreen Le PA-C [address] [place] [address] PCP - General Family Medicine 11/26/16 No, Referral Referring 01/31/19 [place] [address] [facility] [place] [address] Primary Staff Physician Cardiology 07/15/21 Carla Burdick MD [address] [place] [address] Primary Staff Physician Cardiology 03/03/22 Dietetic Aide Relationship Specialty Start Date End Date Doreen Le PA-C 0134 [facility] [place] [address] PCP - General Family Medicine 11/26/16 No, Referral Referring 01/31/19 [place] [address] [place] [address] Primary Staff Physician Cardiology 07/15/21 Carla Burdick MD [address] [place] [address] Primary Staff Physician Cardiology 03/03/22 Sonny Lund MD [address] [facility] [place] [address] Hematology/Oncology 04/22/22 Dietetic Aide Relationship Specialty Start Date End Date Doreen Le PA-C 4804 [facility] [place] [address] PCP - General Family Medicine 11/26/16 No, Referral Referring 01/31/19 [place] [address] [place] [address] Primary Staff Physician Cardiology 07/15/21 Carla Burdick MD [address] [place] [address] Primary Staff Physician Cardiology 03/03/22 Sonny Lund MD [address] [facility] [place] [address] Hematology/Oncology 04/22/22 Dietetic Aide Relationship Specialty Start Date End Date Doreen Le PA-C 6589 [facility] [address] PCP - General Family Medicine 11/26/16 No, Referral Referring 01/31/19 [place] [address] [place] [address] Primary Staff Physician Cardiology 07/15/21 Carla Burdick MD [address] [place] [address] Primary Staff Physician Cardiology 03/03/22 oSnny Lund MD [address] [facility] [place] [address] Hematology/Oncology 04/22/22 Dietetic Aide Relationship Specialty Start Date End Date Doreen Le PA-C 8703 [facility] [address] PCP - General Family Medicine 11/26/16 No, Referral Referring 01/31/19 [place] [address] [place] [address] Primary Staff Physician Cardiology 07/15/21 Carla Burdick MD [address] [place] [address] Primary Staff Physician Cardiology 03/03/22 Sonny Lund MD [address] [facility] [place] [address] Hematology/Oncology 04/22/22 Dietetic Aide Relationship Specialty Start Date End Date Doreen Le PA-C [address]484 [facility] [place] [address] PCP - General Family Medicine 11/26/16 No, Referral Referring 01/31/19 [place] [address] [place] [address] Primary Staff Physician Cardiology 07/15/21 Carla Burdick MD [address] [place] [address] Primary Staff Physician Cardiology 03/03/22 Sonny Lund MD [address] [facility] [place] [address] Hematology/Oncology 04/22/22 Dietetic Aide Relationship Specialty Start Date End Date Doreen Le PA-C [address] [place] [address] PCP - General Family Medicine 11/26/16 No, Referral Referring 01/31/19 [place] [address] [facility] [place] [address] Primary Staff Physician Cardiology 07/15/21 Carla Burdick MD [address] [place] [address] Primary Staff Physician Cardiology 03/03/22 Sonny Lund MD [address] [facility] [place] [address] Hematology/Oncology 04/22/22 Dietetic Aide Relationship Specialty Start Date End Date Doreen Le PA-C 7747 [facility] [address] PCP - General Family Medicine 11/26/16 No, Referral Referring 01/31/19 [place] [address] [place] [address] Primary Staff Physician Cardiology 07/15/21 Carla Burdick MD [address] [place] [address] Primary Staff Physician Cardiology 03/03/22 Sonny Lund MD [address] [facility] [place] [address] Hematology/Oncology 04/22/22 Dietetic Aide Relationship Specialty Start Date End Date Doreen Le PA-C [address] [facility] [address] PCP - General Family Medicine 11/26/16 No, Referral Referring 01/31/19 [place] [address] [place] [address] Primary Staff Physician Cardiology 07/15/21 Carla Burdick MD [address] [facility] [place] [address] Primary Staff Physician Cardiology 03/03/22 Sonny Lund MD [address] [facility] [place] [address] Hematology/Oncology 04/22/22 Dietetic Aide Relationship Specialty Start Date End Date Doreen Le PA-C [address] [facility] [place] [address] PCP - General Family Medicine 11/26/16 No, Referral Referring 01/31/19 [place] [address] [place] [address] Primary Staff Physician Cardiology 07/15/21 Carla Burdick MD [address] [facility] [place] [address] Primary Staff Physician Cardiology 03/03/22 Sonny Lund MD [address] [facility] [place] [address] Hematology/Oncology 04/22/22 Dietetic Aide Relationship Specialty Start Date End Date Doreen Le PA-C 7894 [facility] [address] PCP - General Family Medicine 11/26/16 No, Referral Referring 01/31/19 [place] [address] [place] [address] Primary Staff Physician Cardiology 07/15/21 Carla Burdick MD [address] [place] [address] Primary Staff Physician Cardiology 03/03/22 Sonny Lund MD [address] [facility] [place] [address] Hematology/Oncology 04/22/22 Dietetic Aide Relationship Specialty Start Date End Date Doreen Le PA-C 4751 [facility] [place] [address] PCP - General Family Medicine 11/26/16 No, Referral Referring 01/31/19 [place] [address] [place] [address] Primary Staff Physician Cardiology 07/15/21 Carla Burdick MD [address] [place] [address] Primary Staff Physician Cardiology 03/03/22 Sonny Lund MD [address] [facility] [place] [address] Hematology/Oncology 04/22/22 Dietetic Aide Relationship Specialty Start Date End Date Doreen Le PA-C 1356 [facility] [place] [address] PCP - General Family Medicine 11/26/16 No, Referral Referring 01/31/19 [place] [address] [facility] [place] [address] Primary Staff Physician Cardiology 07/15/21 Carla Burdick MD [address] [place] [address] Primary Staff Physician Cardiology 03/03/22 Sonny Lund MD [address] [facility] [place] [address] Hematology/Oncology 04/22/22 Dietetic Aide Relationship Specialty Start Date End Date Dorene Le PA-C 8031 [facility] [place] [address] PCP - General Family Medicine 11/26/16 No, Referral Referring 01/31/19 [place] [address] [place] [address] Primary Staff Physician Cardiology 07/15/21 Carla Burdick MD [address] [place] [address] Primary Staff Physician Cardiology 03/03/22 Sonny Lund MD [address] [facility] [place] [address] Hematology/Oncology 04/22/22 Dietetic Aide Relationship Specialty Start Date End Date Doreen Le PA-C 2074 [facility] [place] [address] PCP - General Family Medicine 11/26/16 No, Referral Referring 01/31/19 [place] [address] [place] [address] Primary Staff Physician Cardiology 07/15/21 Carla Burdick MD [address] [place] [address] Primary Staff Physician Cardiology 03/03/22 Sonny Lund MD [address] [place], [place] 309961 Hematology/Oncology 04/22/22 Dietetic Aide Relationship Specialty Start Date End Date Doreen Le PA-C [address] [place] [address] PCP - General Family Medicine 11/26/16 No, Referral Referring 01/31/19 [place] [address] [place], [place] 0700026 Primary Staff Physician Cardiology 07/15/21 Carla Burdick MD [address] [place] [address] Primary Staff Physician Cardiology 03/03/22 Sonny Lund MD [address] [place] [address] Hematology/Oncology 04/22/22 Dietetic Aide Relationship Specialty Start Date End Date Doreen Le PA-C [address] [place] [address] PCP - General Family Medicine 11/26/16 No, Referral Referring 01/31/19 [place] [address] [place], [place] 0797926 Primary Staff Physician Cardiology 07/15/21 Carla Burdick MD [address] [place], [place] 488351 Primary Staff Physician Cardiology 03/03/22 Sonny Lund MD [address] [facility] [place], [place] 564801 Hematology/Oncology 04/22/22 Dietetic Aide Relationship Specialty Start Date End Date Doreen Le PA-C [address] [place], [place] 291831 PCP - General Family Medicine 11/26/16 No, Referral Referring 01/31/19 [place] [address] [facility] [place] 7211826 Primary Staff Physician Cardiology 07/15/21 Carla Burdick MD [address] [place] [address] Primary Staff Physician Cardiology 03/03/22 Sonny Lund MD [address] [place], [place] 666781 Hematology/Oncology 04/22/22 Dietetic Aide Relationship Specialty Start Date End Date Doreen Le PA-C [address] [place] [address] PCP - General Family Medicine 11/26/16 No, Referral Referring 01/31/19 [place] [address] [place], [place] 6023126 Primary Staff Physician Cardiology 07/15/21 Carla Burdick MD [address] [facility] [place] 403001 Primary Staff Physician Cardiology 03/03/22 Sonny Lund MD [address] [facility] [place], [place] 565361 Hematology/Oncology 04/22/22 Dietetic Aide Relationship Specialty Start Date End Date Doreen Le PA-C [address] [place], [place] 756231 PCP - General Family Medicine 11/26/16 No, Referral Referring 01/31/19 [place] [address] [place], [place] 5423626 Primary Staff Physician Cardiology 07/15/21 Carla Burdick MD [address] [place], [place] 659111 Primary Staff Physician Cardiology 03/03/22 Sonny Lund MD [address] [place], [place] 534141 Hematology/Oncology 04/22/22 Dietetic Aide Relationship Specialty Start Date End Date Doreen Le PA-C [address] [place] [address] PCP - General Family Medicine 11/26/16 No, Referral Referring 01/31/19 [place] [address] [place], [place] 0121526 Primary Staff Physician Cardiology 07/15/21 Carla Burdick MD [address] [facility] [place], [place] 067991 Primary Staff Physician Cardiology 03/03/22 Sonny Lund MD [address] [place], [place] 784431 Hematology/Oncology 04/22/22 Dietetic Aide Relationship Specialty Start Date End Date Doreen Le PA-C [address] [place], [place] 842311 PCP - General Family Medicine 11/26/16 No, Referral Referring 01/31/19 [place] [address] [place] [address] Primary Staff Physician Cardiology 07/15/21 Carla Burdick MD [address] [place], [place] 632841 Primary Staff Physician Cardiology 03/03/22 Sonny Lund MD [address], [place] 085081 Hematology/Oncology 04/22/22 Dietetic Aide Relationship Specialty Start Date End Date Doreen Le PA-C [address] [place], [place] 375761 PCP - General Family Medicine 11/26/16 No, Referral Referring 01/31/19 [place] [address] [place] [address] Primary Staff Physician Cardiology 07/15/21 Carla Burdick MD [address] [facility], [place] 572141 Primary Staff Physician Cardiology 03/03/22 Sonny Lund MD [address] [place], [place] 570401 Hematology/Oncology 04/22/22 Dietetic Aide Relationship Specialty Start Date End Date Doreen Le PA-C [address] [place], [place] 995771 PCP - General Family Medicine 11/26/16 No, Referral Referring 01/31/19 [place] [address] [place] [address] Primary Staff Physician Cardiology 07/15/21 Carla Burdick MD [address] [place], [place] 483551 Primary Staff Physician Cardiology 03/03/22 Sonny Lund MD [address] [place], [place] 558931 Hematology/Oncology 04/22/22 Dietetic Aide Relationship Specialty Start Date End Date Doreen Le PA-C [address] [place], [place] 034531 PCP - General Family Medicine 11/26/16 No, Referral Referring 01/31/19 [place] [address] [place], [place] 2709526 Primary Staff Physician Cardiology 07/15/21 Carla Burdick MD [address] [place] [address] Primary Staff Physician Cardiology 03/03/22 Sonny Lund MD [address] [facility] [place], [place] 493101 Hematology/Oncology 04/22/22 Dietetic Aide Relationship Specialty Start Date End Date Doreen Le PA-C [address] [place], [place] 179901 PCP - General Family Medicine 11/26/16 No, Referral Referring 01/31/19 [place] [address] [place], [place] 6403726 Primary Staff Physician Cardiology 07/15/21 Carla Burdick MD [address] [place], [place] 593881 Primary Staff Physician Cardiology 03/03/22 Sonny Lund MD [address] [place], [place] 769501 Hematology/Oncology 04/22/22 Dietetic Aide Relationship Specialty Start Date End Date Doreen Le PA-C [address] [place] [address] PCP - General Family Medicine 11/26/16 No, Referral Referring 01/31/19 [place] [address] [place], [place] 4706826 Primary Staff Physician Cardiology 07/15/21 Carla Burdick MD [address] [facility] [place], [place] 385301 Primary Staff Physician Cardiology 03/03/22 Sonny Lund MD [address] [place] [address] Hematology/Oncology 04/22/22 Dietetic Aide Relationship Specialty Start Date End Date Doreen Le PA-C [address] [place] [address] PCP - General Family Medicine 11/26/16 No, Referral Referring 01/31/19 [place] [address] [place], [place] 4555926 Primary Staff Physician Cardiology 07/15/21 Carla Burdick MD [address] [place], [place] 469681 Primary Staff Physician Cardiology 03/03/22 Sonny Lund MD [address] [place] [address] Hematology/Oncology 04/22/22 Dietetic Aide Relationship Specialty Start Date End Date Doreen Le PA-C [address] [place] [address] PCP - General Family Medicine 11/26/16 No, Referral Referring 01/31/19 [place] [address] [place], [place] 0848526 Primary Staff Physician Cardiology 07/15/21 Carla Burdick MD [address] [place] [address] Primary Staff Physician Cardiology 03/03/22 Sonny Lund MD [address] [facility] [place], [place] 842101 Hematology/Oncology 04/22/22 Dietetic Aide Relationship Specialty Start Date End Date Doreen Le PA-C [address] [place], [place] 882161 PCP - General Family Medicine 11/26/16 No, Referral Referring 01/31/19 [place] [address] [place] [address] Primary Staff Physician Cardiology 07/15/21 Carla Burdick MD [address] [place], [place] 689371 Primary Staff Physician Cardiology 03/03/22 Sonny Lnud MD [address] [place] [address] Hematology/Oncology 04/22/22 Dietetic Aide Relationship Specialty Start Date End Date Doreen Le PA-C [address] [place] [address] PCP - General Family Medicine 11/26/16 No, Referral Referring 01/31/19 [place] [address] [place], [place] 4375526 Primary Staff Physician Cardiology 07/15/21 Carla Burdick MD [address] [facility] [place], [place] 421651 Primary Staff Physician Cardiology 03/03/22 Sonny Lund MD [address] [place] [address] Hematology/Oncology 04/22/22 Dietetic Aide Relationship Specialty Start Date End Date Doreen Le PA-C [address] [place] [address] PCP - General Family Medicine 11/26/16 No, Referral Referring 01/31/19 [place] [address] [place], [place] 4284926 Primary Staff Physician Cardiology 07/15/21 Carla Burdick MD [address] [place], [place] 612431 Primary Staff Physician Cardiology 03/03/22 Sonny Lund MD [address] [place] [address] Hematology/Oncology 04/22/22 Dietetic Aide Relationship Specialty Start Date End Date Doreen Le PA-C [address] [place] [address] PCP - General Family Medicine 11/26/16 No, Referral Referring 01/31/19 [place] [address] [place], [place] 0331626 Primary Staff Physician Cardiology 07/15/21 Carla Burdick MD [address] [facility] [place], [place] 36895691 Primary Staff Physician Cardiology 03/03/22 Sonny Lund MD [address] [facility] [place] 038591 Hematology/Oncology 04/22/22 Dietetic Aide Relationship Specialty Start Date End Date Doreen Le PA-C [address] [place], [place] 702771 PCP - General Family Medicine 11/26/16 No, Referral Referring 01/31/19 [place] [address] [place], [place] 5834726 Primary Staff Physician Cardiology 07/15/21 Carla Burdick MD [address] [place], [place] 280931 Primary Staff Physician Cardiology 03/03/22 Sonny Lund MD [address] [place], [place] 362801 Hematology/Oncology 04/22/22 Dietetic Aide Relationship Specialty Start Date End Date Doreen Le PA-C [address] [place] [address] PCP - General Family Medicine 11/26/16 No, Referral Referring 01/31/19 [place] [address] [place], [place] 1947326 Primary Staff Physician Cardiology 07/15/21 Carla Burdick MD [address] [place], [place] 80770691 Primary Staff Physician Cardiology 03/03/22 Sonny Lund MD [address] [place], [place] 035761 Hematology/Oncology 04/22/22 Dietetic Aide Relationship Specialty Start Date End Date Doreen Le PA-C [address] [place] [address] PCP - General Family Medicine 11/26/16 No, Referral Referring 01/31/19 [place] [address] [place], [place] 4589126 Primary Staff Physician Cardiology 07/15/21 Carla Burdick MD [address] [place], [place] 893461 Primary Staff Physician Cardiology 03/03/22 Sonny Lund MD [address] [place] [address] Hematology/Oncology 04/22/22 Dietetic Aide Relationship Specialty Start Date End Date Doreen Le PA-C [address] [place] [address] PCP - General Family Medicine 11/26/16 No, Referral Referring 01/31/19 [place] [address] [place], [place] 1189826 Primary Staff Physician Cardiology 07/15/21 Carla Burdick MD [address] [place], [place] 947581 Primary Staff Physician Cardiology 03/03/22 Sonny Lund MD [address] [facility] [place] 103831 Hematology/Oncology 04/22/22 Dietetic Aide Relationship Specialty Start Date End Date Doreen Le PA-C [address] [place], [place] 893181 PCP - General Family Medicine 11/26/16 No, Referral Referring 01/31/19 [place] [address] [place], [place] 6586226 Primary Staff Physician Cardiology 07/15/21 Carla Burdick MD [address] [place], [place] 847781 Primary Staff Physician Cardiology 03/03/22 Sonny Lund MD [address] [place], [place] 931671 Hematology/Oncology 04/22/22 Dietetic Aide Relationship Specialty Start Date End Date Doreen Le PA-C [address] [place] [address] PCP - General Family Medicine 11/26/16 No, Referral Referring 01/31/19 [place] [address] [place], [place] 9929426 Primary Staff Physician Cardiology 07/15/21 Carla Burdick MD [address] [place], [place] 012771 Primary Staff Physician Cardiology 03/03/22 Sonny Lund MD [address] [place] [address] Hematology/Oncology 04/22/22 Dietetic Aide Relationship Specialty Start Date End Date Doreen Le PA-C [address] [place], [place] 164891 PCP - General Family Medicine 11/26/16 No, Referral Referring 01/31/19 [place] [address] [place], [place] 1675026 Primary Staff Physician Cardiology 07/15/21 Carla Burdick MD [address] [place], [place] 362761 Primary Staff Physician Cardiology 03/03/22 Sonny Lund MD [address] [place], [place] 962781 Hematology/Oncology 04/22/22 Dietetic Aide Relationship Specialty Start Date End Date Doreen Le PA-C [address] [place] [address] PCP - General Family Medicine 11/26/16 No, Referral Referring 01/31/19 [place] [address] [place], [place] 6581826 Primary Staff Physician Cardiology 07/15/21 Carla Burdick MD [address] [place], [place] 709311 Primary Staff Physician Cardiology 03/03/22 Sonny Lund MD [address] [facility] [place], [place] [address] Hematology/Oncology 04/22/22 Dietetic Aide Relationship Specialty Start Date End Date Doreen Le PA-C [address] [place], [place] 119531 PCP - General Family Medicine 11/26/16 No, Referral Referring 01/31/19 [place] [address] [address] [place], [place] [id number] Primary Staff Physician Cardiology 07/15/21 Carla Burdick MD [address] [place], [place] 648251 Primary Staff Physician Cardiology 03/03/22 Sonny Lund MD [address] [place], [place] 604671 Hematology/Oncology 04/22/22 Dietetic Aide Relationship Specialty Start Date End Date Doreen Le PA-C [address] [place], [place] [address]31 PCP - General Family Medicine 11/26/16 No, Referral Referring 01/31/19 [place] [address] [place], [place] [id number] Primary Staff Physician Cardiology 07/15/21 Carla Burdick MD [address] [facility] [place], [place] [address] Primary Staff Physician Cardiology 03/03/22 Sonny Lund MD [address] [place], [place] [address] Hematology/Oncology 04/22/22 Dietetic Aide Relationship Specialty Start Date End Date Doreen Le PA-C [address] [place], [place] 3[address]01 PCP - General Family Medicine 11/26/16 No, Referral Referring 01/31/19 [place] [address] [place] [address] Primary Staff Physician Cardiology 07/15/21 Carla Burdick MD [address] [place], [place] 544491 Primary Staff Physician Cardiology 03/03/22 Sonny Lund MD [address] [place], [place] 245811 Hematology/Oncology 04/22/22 Dietetic Aide Relationship Specialty Start Date End Date Doreen Le PA-C [address] [place], [place] 79[address]01 PCP - General Family Medicine 11/26/16 No, Referral Referring 01/31/19 [place] [address] [address] [place], [place] 4343826 Primary Staff Physician Cardiology 07/15/21 Carla Burdick MD [address] [place], [place] [address]861 Primary Staff Physician Cardiology 03/03/22 Sonny Lund MD [address] [place] [address] Hematology/Oncology 04/22/22 Dietetic Aide Relationship Specialty Start Date End Date Doreen Le PA-C [address] [place], [place] 389871 PCP - General Family Medicine 11/26/16 No, Referral Referring 01/31/19 [place] [address] [place], [place] [phone] Primary Staff Physician Cardiology 07/15/21 Dietetic Aide Relationship Specialty Start Date End Date Doreen Le PA-C [address] [place], [place] 965421 PCP - General Family Medicine 11/26/16 No, Referral Referring 01/31/19 [place] [address] [facility] [place] 1760226 Primary Staff Physician Cardiology 07/15/21 Carla Burdick MD [address] [place] [address] Primary Staff Physician Cardiology 03/03/22 Sonny Lund MD [address] [place] [address] Hematology/Oncology 04/22/22 Dietetic Aide Relationship Specialty Start Date End Date Dianne Le PA-C PCP - General Family Medicine 11/26/16 No, Referral Referring 01/31/19 [place] [address] [place] [address] Primary Staff Physician Cardiology 07/15/21 Carla Burdick MD [address] [place] [place] 8[address]11 Primary Staff Physician Cardiology 03/03/22 Sonny Lund MD [address] [place] [address] Hematology/Oncology 04/22/22 Deysi Collazo APRN.BRANCH LEAD [address] [place] [address] Security And Compliance Analyst Family Medicine 06/09/24 Sandra Bell APRN.BRANCH LEAD [address] [place] [address] Security And Compliance Analyst [facility] 06/09/24 Dietetic Aide Relationship Specialty Start Date End Date No, Referral Referring 01/31/19 [place] [address] [place] [address] Primary Staff Physician Cardiology 07/15/21 Carla Burdick MD [address] [place] [address] Primary Staff Physician Cardiology 03/03/22 Sonny Lund MD [address] [place] [place], [place] 256431 Hematology/Oncology 04/22/22 Deysi Collazo APRN.BRANCH LEAD [address] [place], [place] 532398 [phone] [facility] 06/09/24 Sandra Bell UNDERWRITING SALES REPRESENTATIVE.BRANCH LEAD [address] [place], [place] 628011 [facility] 06/09/24 Dietetic Aide Relationship Specialty Start Date End Date Deysi Collazo, UNDERWRITING SALES REPRESENTATIVE.BRANCH LEAD [address] [place] [address] PCP - General Family Medicine 07/07/24 No, Referral Referring 01/31/19 [place] [address] [place] [address] Primary Staff Physician Cardiology 07/15/21 Carla Burdick MD [address] [place] [address] Primary Staff Physician Cardiology 03/03/22 Sonny Lund MD [address] [facility] [place] [address] Hematology/Oncology 04/22/22 Deysi Collazo APRN.BRANCH LEAD [address] [place] [address] [facility] 06/09/24 Sandra Bell UNDERWRITING SALES REPRESENTATIVE.BRANCH LEAD [address] [place] [address] [facility] 06/09/24 Dietetic Aide Relationship Specialty Start Date End Date Deysi Collazo UNDERWRITING SALES REPRESENTATIVE.BRANCH LEAD [address] [place] [address] PCP - General Family Medicine 07/07/24 No, Referral Referring 01/31/19 [place] [address] [place], [place] 5741626 Primary Staff Physician Cardiology 07/15/21 Carla Burdick MD [address] [facility] [place] 386[address] Primary Staff Physician Cardiology 03/03/22 Sonny Lund MD [address] [facility] [place], [place] [address] Hematology/Oncology 04/22/22 Deysi Collazo APRN.BRANCH LEAD [address] [place], [place] 988831 Security And Compliance Analyst [facility] 06/09/24 Sandra Bell UNDERWRITING SALES REPRESENTATIVE.BRANCH LEAD [address] [place], [place] [address] [facility] 06/09/24 Dietetic Aide Relationship Specialty Start Date End Date Deysi Collazo APRN.BRANCH LEAD [address] [place], [place] 422301 PCP - General Family Medicine 07/07/24 No, Referral Referring 01/31/19 [place] [address] [place] [address] Primary Staff Physician Cardiology 07/15/21 Carla Burdick MD [address] [place] [place], [place] [address] Primary Staff Physician Cardiology 03/03/22 Sonny Lund MD [address] [place], [place] 4[address]31 Hematology/Oncology 04/22/22 Deysi Collazo APRN.BRANCH LEAD [address] [place] [address] [facility] 06/09/24 Sandra Bell APRN.BRANCH LEAD [address] [facility] [place] [address] [facility] 06/09/24 Dietetic Aide Relationship Specialty Start Date End Date Deysi Collazo APRN.BRANCH LEAD [address] [place] [address] PCP - General Family Medicine 07/07/24 No, Referral Referring 01/31/19 [place] [address] [address] [place], [place] 6965426 Primary Staff Physician Cardiology 07/15/21 Carla Burdick MD [address] [place] [address] Primary Staff Physician Cardiology 03/03/22 Sonny Lund MD [address] [place] [address] Hematology/Oncology 04/22/22 Deysi Collazo APRN.BRANCH LEAD [address] [place] [address] [facility] 06/09/24 Sandra Bell APRN.BRANCH LEAD [address] [place] [address] Security And Compliance Analyst [facility] 06/09/24 Dietetic Aide Relationship Specialty Start Date End Date Deysi Collazo APRN.BRANCH LEAD [address] [place] [address] PCP - General Family Medicine 07/07/24 No, Referral Referring 01/31/19 [place] [address] [address] [place], [place] 3929126 Primary Staff Physician Cardiology 07/15/21 Carla Burdick MD [address] [facility] [place] [address] Primary Staff Physician Cardiology 03/03/22 Sonny Lund MD [address] [place] [address] Hematology/Oncology 04/22/22 Deysi Collazo APRN.BRANCH LEAD [address] [place] [address] Security And Compliance Analyst [facility] 06/09/24 Sandra Bell APRN.BRANCH LEAD [address] [place] [address] Security And Compliance Analyst [facility] 06/09/24 Dietetic Aide Relationship Specialty Start Date End Date Deysi Collazo APRN.BRANCH LEAD [address] [place] [address] PCP - General Family Medicine 07/07/24 No, Referral Referring 01/31/19 [place] [address] [address] [place], [place] 8063526 Primary Staff Physician Cardiology 07/15/21 Carla Burdick MD [address] [place], [place] 740981 Primary Staff Physician Cardiology 03/03/22 Sonny Lund MD [address] [place] [address] Hematology/Oncology 04/22/22 Deysi Collazo APRN.BRANCH LEAD [address] [place] [address] Security And Compliance Analyst Family [facility] 06/09/24 Sandra Bell UNDERWRITING SALES REPRESENTATIVE.BRANCH LEAD [address] [place] [address] Security And Compliance Analyst Family [facility] 06/09/24 Dietetic Aide Relationship Specialty Start Date End Date Deysi Collazo APRN.BRANCH LEAD [address] [place], [place] 804131 PCP - General Family Medicine 07/07/24 No, Referral Referring 01/31/19 [place] [address] [place] [address] Primary Staff Physician Cardiology 07/15/21 Carla Burdick MD [address] [place] [address] Primary Staff Physician Cardiology 03/03/22 Sonny Lund MD [address] [place] [address] Hematology/Oncology 04/22/22 Deysi Collazo APRN.BRANCH LEAD [address] [place] [address] Security And Compliance Analyst Family [facility] 06/09/24 Sandra Bell UNDERWRITING SALES REPRESENTATIVE.BRANCH LEAD [address] [place] [address] [facility] 06/09/24 Dietetic Aide Relationship Specialty Start Date End Date Deysi Collazo APRN.BRANCH LEAD [address] [place] [address] PCP - General Family Medicine 07/07/24 No, Referral Referring 01/31/19 [place] [address] [address] [place], [place] 1300026 Primary Staff Physician Cardiology 07/15/21 Carla Burdick MD [address] [place] [address] Primary Staff Physician Cardiology 03/03/22 Sonny Lund MD [address] [place] [address] Hematology/Oncology 04/22/22 Deysi Collazo APRN.BRANCH LEAD [address] [place] [address] Security And Compliance Analyst [facility] 06/09/24 Sandra Bell UNDERWRITING SALES REPRESENTATIVE.BRANCH LEAD [address] [place], [place] 96897674 [phone] [facility] 06/09/24 Dietetic Aide Relationship Specialty Start Date End Date Deysi Collazo, UNDERWRITING SALES REPRESENTATIVE.BRANCH LEAD [address] [place], [place] 880231 PCP - General Family Medicine 07/07/24 No, Referral Referring 01/31/19 [place] [address] [place] [address] Primary Staff Physician Cardiology 07/15/21 Carla Burdick MD [address] [place], [place] 07293691 Primary Staff Physician Cardiology 03/03/22 Sonny Lund MD [address] [place] [address] Hematology/Oncology 04/22/22 Deysi Collazo, UNDERWRITING SALES REPRESENTATIVE.BRANCH LEAD [address] [place] [address] [facility] 06/09/24 Sandra Bell, UNDERWRITING SALES REPRESENTATIVE.BRANCH LEAD [address] [place], [place] [address]15[address] [facility] 06/09/24 Dietetic Aide Relationship Specialty Start Date End Date Deysi Collazo, UNDERWRITING SALES REPRESENTATIVE.BRANCH LEAD [address] [place], [place] 557841 [phone] PCP - General Family Medicine 07/07/24 No, Referral Referring 01/31/[place] [address] [address] [place], [place] 3974426 Primary Staff Physician Cardiology 07/15/21 Carla Burdick MD [address] [address] Primary Staff Physician Cardiology 03/03/22 Sonny Lund MD [address] [place] [address] Hematology/Oncology 04/22/22 Deysi Collazo UNDERWRITING SALES REPRESENTATIVE.BRANCH LEAD [address] [place] [address] [facility] 06/09/24 Sandra Bell UNDERWRITING SALES REPRESENTATIVE.BRANCH LEAD [address] [place] [address] [facility] 06/09/24 Dietetic Aide Relationship Specialty Start Date End Date Deysi Collazo APRN.BRANCH LEAD [address] [place] [address] PCP - General Family Medicine 07/07/24 No, Referral Referring 01/31/19 [place] [address] [place] [address] Primary Staff Physician Cardiology 07/15/21 Carla Burdick MD [address] [place] [address] Primary Staff Physician Cardiology 03/03/22 Sonny Lund MD [address] [place] [address] Hematology/Oncology 04/22/22 Deysi Collazo, UNDERWRITING SALES REPRESENTATIVE.BRANCH LEAD [address] [place] [address] Security And Compliance Analyst Family Medicine 06/09/24 Sandra Bell APRN.BRANCH LEAD [address] [place] [address] Security And Compliance Analyst [facility] 06/09/24 Dietetic Aide Relationship Specialty Start Date End Date Deysi Collazo APRN.BRANCH LEAD [address] [place] [address] PCP - General Family Medicine 07/07/24 No, Referral Referring 01/31/19 [place] [address] [address] [place], [place] 7057326 Primary Staff Physician Cardiology 07/15/21 Carla Burdick MD [address] [place] [address] Primary Staff Physician Cardiology 03/03/22 Deysi Collazo APRN.BRANCH LEAD [address] [place] [address] Security And Compliance Analyst Family [facility] 06/09/24 Sandra Bell APRN.BRANCH LEAD [address] [place] [address] Security And Compliance Analyst [facility] 06/09/24 Dietetic Aide Relationship Specialty Start Date End Date Deysi Collazo APRN.BRANCH LEAD [address] [place] [address] PCP - General Family Medicine 07/07/24 No, Referral Referring 01/31/19 [place] [address] [address] [place], [place] 9998426 Primary Staff Physician Cardiology 07/15/21 Carla Burdick MD [address] [place], [place] 826139 [phone] Primary Staff Physician Cardiology 03/03/22 Deysi Collazo APRN.BRANCH LEAD [address] [place] [address] Security And Compliance Analyst [facility] 06/09/24 Sandra Bell APRN.BRANCH LEAD [address] [place] [address] [facility] 06/09/24 Dietetic Aide Relationship Specialty Start Date End Date Deysi Collazo APRN.BRANCH LEAD [address] [place] [address] PCP - General Family Medicine 07/07/24 No, Referral Referring 01/31/19 [place] [address] [address] [place], [place] 3132526 Primary Staff Physician Cardiology 07/15/21 Carla Burdick MD [address] [place] [place], [place] 982[address] [phone] Primary Staff Physician Cardiology 03/03/22 Deysi Collazo APRN.BRANCH LEAD [address] [place] [address] [facility] 06/09/24 Sandra Bell UNDERWRITING SALES REPRESENTATIVE.BRANCH LEAD [address] [place] [address] [facility] 06/09/24 Dietetic Aide Relationship Specialty Start Date End Date Deysi Collazo APRN.BRANCH LEAD [address] [place] [address] PCP - General Family Medicine 07/07/24 No, Referral Referring 01/31/19 [place] [address] [address] [place], [place] 0382426 Primary Staff Physician Cardiology 07/15/21 Carla Burdick MD [address] [place] [address] Primary Staff Physician Cardiology 03/03/22 Deysi Collazo APRN.BRANCH LEAD [address] [place] [address] [facility] 06/09/24 Sandra Bell APRN.BRANCH LEAD [address] [place] [address] [facility] 06/09/24 Team Status: Active Member Role/Relationship Status Dates Deysi Collazo BRAND STRATEGY MANAGER, BRAND STRATEGY MANAGER-C Primary Care Provider Active Team Status: Active Member Role/Relationship Status Dates Deysi Collazo BRAND STRATEGY MANAGER, BRAND STRATEGY MANAGER-C Primary Care Provider Active Start: January 07, 2025 Dr. Luis Armando Harry MD Emergency Provider Active Sta rt: January 07, 2025 Dr. Radha Heller MD Admit Provider Active Star t: January 07, 2025 Dr. Radha Heller MD Attending Provider Active Start: January 07, 2025 Team Status: Inactive Member Role/Relationship Status Dates eDysi Collazo BRAND STRATEGY MANAGER, BRAND STRATEGY MANAGER-C Primary Care Provider Active Start: January 07, [...] Active Member Role/Relationship Status Dates Deysi Collazo BRAND STRATEGY MANAGER, BRAND STRATEGY MANAGER-C Primary Care Provider Active Start: January 08, 2025 Dr. Abundio Turcios MD Attending Provider Active S tart: January 08, 2025 Team Status: Active Member Role/Relationship Status Dates Deysi Collazo BRAND STRATEGY MANAGER, BRAND STRATEGY MANAGER-C Primary Care Provider Active Start: January 08, 2025 Dr. Yaniv Masters MD Attending Provider Active S tart: January 08, 2025 Team Status: Active Member Role/Relationship Status Dates Deysi Collazo BRAND STRATEGY MANAGER, BRAND STRATEGY MANAGER-C Primary Care Provider Active Start: January 08, [...] Active Member Role/Relationship Status Dates Deysi Collazo BRAND STRATEGY MANAGER, BRAND STRATEGY MANAGER-C Primary Care Provider Active Start: January 09, [...] Active Member Role/Relationship Status Dates Deysi Collazo BRAND STRATEGY MANAGER, BRAND STRATEGY MANAGER-C Primary Care Provider Active Start: January 10, [...] Active Member Role/Relationship Status Dates Deysi Collazo BRAND STRATEGY MANAGER, BRAND STRATEGY MANAGER-C Primary Care Provider Active Start: January 11, 2025 Dr. Luis Armando Harry MD Emergency Provider Active Sta rt: January 11, 2025 Dr. Radha Heller MD Admit Provider Active Star t: January 11, 2025 Dr. aRdha Heller MD Other Provider Active Star t: [...] January 23, 2025 End: January 23, 2025 Dietetic Aide Relationship Specialty Start Date End Date Deysi Collazo APRN.BRANCH LEAD [address] [place], [place] [address]48601 PCP - General Family Medicine 07/07/24 No, Referral Referring 01/31/19 [place] [address] [address] [place], [place] 0789626 Primary Staff Physician Cardiology 07/15/21 Carla Burdick MD [address] [place], [place] 849971 Primary Staff Physician Cardiology 03/03/22 Deysi Collazo APRN.BRANCH LEAD [address] [place], [place] 538[address] Security And Compliance Analyst [facility] 06/09/24 Sandra Bell APRN.BRANCH LEAD [address] [place] [address] Security And Compliance Analyst [facility] 06/09/24 Team Status: Active Member Role/Relationship Status Dates Deysi Collazo BRAND STRATEGY MANAGER, BRAND STRATEGY MANAGER-C Primary Care Provider Active Start: January 08, [...] February 13, 2025 End: February 13, 2025 Dietetic Aide Relationship Specialty Start Date End Date Deysi Collazo APRN.BRANCH LEAD [address] [place], [place] 278321 PCP - General Family Medicine 07/07/24 No, Referral Referring 01/31/19 [place] [address] [address] [place], [place] 6882226 Primary Staff Physician Cardiology 07/15/21 Carla Burdick MD [address] [place], [place] [address]54[address] Primary Staff Physician Cardiology 03/03/22 Deysi Collazo APRN.BRANCH LEAD [address] [place] [id number] Security And Compliance Analyst [facility] 06/09/24 Sandra Bell APRN.BRANCH LEAD [address] [place] [id number] Security And Compliance Analyst [facility] 06/09/24 Team Status: Inactive [...] Provider Active Start: March 01, 2025 Dr. iVncent Flores MD Referring Provider Active Start: March [...] Inactive Member Role/Relationship Status Dates Deysi Collazo BRAND STRATEGY MANAGER, BRAND STRATEGY MANAGER-C Primary care physician Active Start: January 07, [...] Active Member Role/Relationship Status Dates Deysi Collazo BRAND STRATEGY MANAGER, BRAND STRATEGY MANAGER-C Primary care physician Active Start: January 08, 2025 Dr. Abundio Turcios MD Attending physician Active Start: January 08, 2025 Dr. Carla Ha DO Referring Provider Active Start: January 08, 2025 Team Status: Active Member Role/Relationship Status Dates Deysi Collazo BRAND STRATEGY MANAGER, BRAND STRATEGY MANAGER-C Primary care physician Active Start: January 08, 2025 Dr. Yaniv Masters MD Attending physician Active Start: January 08, 2025 Team Status: Active Member Role/Relationship Status Dates Deysi Hadon BRAND STRATEGY MANAGER, BRAND STRATEGY MANAGER-C Primary care physician Active Start: January 08, [...] Active Member Role/Relationship Status Dates Deysi Collazo BRAND STRATEGY MANAGER, BRAND STRATEGY MANAGER-C Primary care physician Active Start: January 09, [...] Active Member Role/Relationship Status Dates Deysi Collazo BRAND STRATEGY MANAGER, BRAND STRATEGY MANAGER-C Primary care physician Active Start: January 10, [...] Active Member Role/Relationship Status Dates Deysi Collazo NP, BRAND STRATEGY MANAGER-C Primary care physician Active Start: January 11, [...] Active Member Role/Relationship Status Dates Deysi Collazo BRAND STRATEGY MANAGER, BRAND STRATEGY MANAGER-C Primary care physician Active Start: January 11, [...] Active Member Role/Relationship Status Dates Dr. Vincent Flroes MD Primary care physician Active Start: March [...] 2025 End: May 07, 2025 Cookie Bowman BRAND STRATEGY MANAGER, BRAND STRATEGY MANAGER-C Attending physician Active Start: May 07, 2025 [...] 2025 End: February 21, 2025 Dr. Vincent Floers MD Attending physician Active Start: February 21, [...] Status: Inactive Member Role/Relationship Status Dates Dr. iVncent Flores MD Primary care physician Active Start: [...] 2025 End: May 07, 2025 Cookie Bowman BRAND STRATEGY MANAGER, BRAND STRATEGY MANAGER-C Attending physician Active Start: May 07, 2025 [...] BE BASED ON THE PRIMARY CLINICAL RECORDS. [facility]. provides no warranty or guarantee of the accuracy or completeness of information in this document.
[2025-06-17] MEDS: Piperacil/Tazobactam 4.5 GM in 0.9% Normal Saline (100mL MB+) 100 ML IV (16:30)
[2025-06-17 16:41] LABS: Anion Gap 14 (5-15); BUN 31 mg/dL (4-19); BUN/Creat Ratio 9.5 RATIO (10-20); CRP 82.90 mg/L (0.0-3.0); Calcium,Total 8.8 mg/dL (7.6-11.0); Carbon Dioxide 27.9 mmol/L (21.0-32.0); Chloride 92 mmol/L (98-108); Estimated Creatinine Clearance 12.85 ml/min (50-250); Glucose 129 mg/dL (70-99); Potassium 4.7 mmol/L (3.3-5.1)
[2025-06-17 16:53] LABS: Hematocrit 31.9 % (37-47); Hemoglobin 10.0 g/dL (12.0-15.0); Immature Granulocytes Count 0.120 X10^3/uL (0.0-0.0); Mean Corp Hgb Conc 31.3 g/dL (32-36); Mean Corpuscular Volume 99.7 fL (81-99); Mean Platelet Vol. 10.2 fl (6.2-12.0); NRBC Flagged by Analyzer 0.3 % (0-5); POSITIVE MORPHOLOGY YES; Platelet Count 183 K/mm3 (150-450); RBC Distribution Width CV 21.4 % (11.6-14.6); RBC Distribution Width SD 77.8 fl (35.1-43.9); Red Blood Count 3.20 M/mm3 (4.2-5.4); White Blood Count 11.9 K/mm3 (4.4-11.0)
[2025-06-17 16:56] LABS: Differential Indicated SCAN CRITERIA MET
--- NOTE | 2025-06-17 17:10 | HP.PCM.HOS_ITS ---
HPI - General General Date of Admission: 06/17/25 Date of Service: 06/17/25 Chief Complaint: Right foot wound noticed for 1 week HPI Narrative YAO SANCHES, is a 79 F with multiple comorbidities came to ED with right foot swelling, ulcer noticed about 1 week. Patient has pain localized over heel with radiation to proximal about 9/10 intensity for 3 days. She had x-ray done earlier which raise the concern for osteomyelitis. She had intermittent right heel ulcer since September this year and was in [place] for most 1 month for treatment of ulcer this year 2024. Denies fever or chills but looks dehydrated. In ED, initially heart rate and blood pressure normal 113/65, heart rate 71 but last pressure on the monitor shows his BP 89 mmHg. 1 L Ringer lactate ordered. Portable chest x-ray and twelve-lead EKG ordered and further patient admitted. Patient got 1 dose of IV Zosyn in ED. [facility] Medical History MONIQUE (acute kidney injury) Ulcer of left lower extremity with fat layer exposed Anemia of chronic renal failure, stage 3 (moderate) Iron deficiency anemia due to chronic blood loss History of ESBL E. coli infection Type 2 diabetes mellitus Ulcer of left foot with fat layer exposed Ulcer of right foot with fat layer exposed Ulcer of right lower extremity with fat layer exposed Acute on chronic heart failure with preserved ejection fraction Hypokalemia Fatigue Vitamin D deficiency Rheumatoid arthritis Insomnia Mitral valve regurgitation Tachy-lionel syndrome Rheumatic fever GERD (gastroesophageal reflux disease) Chronic renal failure (CRF), stage 3b Cervical cancer Iron deficiency anemia Non-sustained ventricular tachycardia Pulmonary hypertension Rectal bleed Presence of Watchman left atrial appendage closure device Pacemaker Sinus node dysfunction Bradycardia History of cardioversion Skin tear of left forearm without complication Skin cancer Cardiac arrhythmia CHF exacerbation Brain aneurysm Anxiety Family history of brain aneurysm PAD (peripheral artery disease) PAF (paroxysmal atrial fibrillation) Obesity (BMI 30.0-34.9) Laceration of right middle finger Heart disease Diabetes History of cancer Fever HTN (hypertension) Diabetes mellitus type 2 in obese Chest pain, musculoskeletal HLD (hyperlipidemia) URI (upper respiratory infection) Bronchospasm with bronchitis, acute Home Medications ?Medication ?Instructions ?Recorded ?Last Taken ?Type atorvastatin 40 mg tablet 40 mg PO DAILY daily 5 06/05/25 History metoprolol succinate 50 mg 50 mg PO BID blood pressure 02/05/25 06/06/25 History tablet,extended release 24 hr vitamin B complex 1 tab PO QDAY supplement 10/2706/06/25 History ascorbic acid (vitamin C) 500 mg 500 mg PO QDAY supple ment 02/14/25 06/05/25 History tablet aspirin 81 mg tablet,delayed 81 mg PO QDAY heart healt h 02/14/25 06/06/25 History release (Adult Aspirin Regimen) pantoprazole 40 mg tablet,delayed 40 mg PO QDAY stomac h 02/14/25 06/06/25 History release polysaccharide iron complex 150 mg 150 mg PO QDAY low iron 02/14/25 06/05/25 History iron capsule (Ferrex) levothyroxine 50 mcg tablet 50 mcg PO DAILY thyroid 06/06/25 History Allergy/AdvReac Type Severity Reaction Status Date / Time propofol AdvReac Mild Low blood Verified 06/17/25 15:48 pressure Family History Father Heart disease High cholesterol Myocardial infarction, Onset Age: 58 Mother Heart disease Surgical History Hx of abdominal surgery History of mastoidectomy History of cardiac radiofrequency ablation history skin cancer surgery history bilateral ear surgeries History of hysterectomy H/O aortic valve replacement Social History household members: spouse number of children: 1 current occupational status: 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 Some of the ROS asked from the patient. Constitutional: Reports fatigue and weakness. No fever. HEENT: Reports systems reviewed and no addt'l complaints, except as documented Respiratory/Chest: No acute shortness of breath or respiratory distress or wheezing. History of heart failure and chronic dyspnea on exertion CVS: No chest pain. Gastrointestinal: Mild nausea. Had Zofran in the ED. Denies coffee ground emesis, hematemesis or vomiting Genitourinary: Makes some urine. On hemodialysis. Denies burning urination or new urinary tract symptoms Musculoskeletal: History of intermittent right heel ulcer. No acute injury Neurologic: Denies seizure-like symptoms. skin: Right heel ulcer. Endocrinology: DM type II. Reports systems reviewed and no addt'l complaints, except as documented Hematologic/Lymphatic: Reports systems reviewed and no addt'l complaints, except as documented Rest 14 ROS are negative except as mentioned in HPI Vital Signs Vital Signs Vital Signs: 06/17/25 15:47 06/17/25 15:48 Temperature 98 F 98 F Temperature Source Oral Oral Pulse Rate 71 75 Respiratory Rate 16 18 Blood Pressure 113/35 L 113/65 Blood Pressure Mean 61 81 Pulse Ox 99 99 Oxygen Delivery Method Room Air Room Air Weight Weight: 141 lb 8.588 oz Body Mass Index (BMI) 25.0 Physical Exam Narrative General: Alert, Oriented x3, Cooperative HEENT: Hard of hearing. Uses hearing aid. Atraumatic, PERRLA, EOMI, Normocephalic. Oral: Oral mucosa dry. No Gingival or Mucosal Lesions/ Ulcerations Neck: Supple, No JVD, Negative Carotid Bruits Chest wall/Lungs: Air entry diminished in bilateral lung bases. No crepitation/rhonchi Cardiovascular: Regular paced rhythm, Normal S1,S2, No M/G/R. Decreased pulse in right popliteal and dorsalis pedis Abdomen: Bowel Sounds Present, Soft, Non Tender, Non-Distended : No dysuria. On HD, TTS. No renal angle tenderness. No suprapubic tenderness. Extremities: Bilateral lower leg/ankle pitting edema, capillary refill delayed Skin: Right heel ulcer, nonblanching skin, pale and thickened skin of right lower leg ventral aspect. Unstageable pressure ulcer Musculoskeletal: No Tenderness to Palpation of Joints or Extremities Neurological: Cranial nerves II-XII grossly intact, DTR 2+/4. No acute focal neurological deficit. Psych/Mental Status: Flat affect Results Lab / Micro Data 06/17/25 16:06 06/17/25 16:06 Labs: Laboratory Results - last 24 hr 06/17/25 16:06: WBC 11.9 H, RBC 3.20 L, Hgb 10.0 L, Hct 31.9 L, MCV 99.7 H, MCH 31.3, MCHC 31.3 L, RDW Std Deviation 77.8 H, RDW Coeff of Yonis 21.4 H, Plt Count 183, MPV 10.2, Immature Gran % (Auto) 1.000 H, Neut % (Auto) 71.4 H, Lymph % (Auto) 15.0 L, Owen % (Auto) 11.4 H, Eos % (Auto) 0.7, Baso % (Auto) 0.5, A bsolute Neuts (auto) 8.5 H, Absolute Lymphs (auto) 1.78, Nucleated RBC % 0.3, E SR 48 H, Sodium 134, Potassium 4.7, Chloride 92 L, Carbon Dioxide 27.9, Anion Gap 14, BUN 31 H, Creatinine 3.20 H, Estim Creat Clear Calc 12.85 L, Est GFR (MDRD) Non-Af 14 L, BUN/Creatinine Ratio 9.5 L, Glucose 129 H, Calcium 8.8, C- React Prot Ext Range 82.90 H Assessment & Plan Assessment/Plan (1) Acute osteomyelitis of foot: PLAN: Plan This entire female is being admitted for acute on chronic osteomyelitis of right heel 1. Acute on chronic osteomyelitis of right heel: X-ray of right foot on 06/23/2025 reviewed. It is reported as a lytic lesion involving the distal medial aspect of first metatarsal bone measuring 13.6 x 6 mm in transverse dimension. This lytic lesion appears a sclerotic margin with soft tissue swelling. Bone demineralization present. ESR and CRP are elevated. Mild leukocytosis. Patient is started on IV vancomycin and Zosyn. 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 Monitor BP. IV fluid Ringer lactate 1 L ordered as patient is dehydrated. MRI of right foot ordered. Currently does not seem septic, but needs monitoring. 2. Chronic HFpEF with right ventricular failure and moderate pulmonary hypertension: Chest x-ray done which shows cardiomegaly, pacemaker. Not suggestive of fluid overload but was admitted in first week of June for anasarca. Patient on metoprolol succinate, baby aspirin and atorvastatin continued. 2D echo in June 2025 shows EF 50% with normal ventricular size but moderately dilated RV, PASP 62 mmHg 3. Chronic A-fib status post Watchman device: Patient not on anticoagulation due to history of GI bleed and Watchman device. Continue metoprolol. 4. Suspected PAD: Lower extremity arterial study ordered. Skin of right lower leg is thickened, pale and nonblanchable. Decreased pulsation of right posterior tibial and dorsalis. 5. DM type II: Her denies DM type II but glucose 129 mg/dL. Last A1c 7.8% suggestive of DM type II. Accu-Chek before meals and at bedtime with Humalog sliding scale coverage and hypoglycemia protocol. 6. Chronic chest flail: No acute issues DVT prophylaxis on heparin 500 subcutaneous twice daily Living will/advanced directive/end of life care: Patient does have living will or advanced directive. Patient's present in the ED and is power of commonwealth attorney for health. After discussion of benefits/risks procedures involved with full code, DNR CC arrest and DNR CC, the patient and her opted for DNR CC arrest with no intubation Patient doesn't want artificial life support including intubation, tube feed, ventilator and/chest compression, and DC shock if needed but OK with central venous catheter and, vasopressor Total time spent in [id number] encounter in discussion of advanced directive 17 minutes. Laboratory Results 06/17/25 16:06: WBC 11.9 H, RBC 3.20 L, Hgb 10.0 L, Hct 31.9 L, MCV 99.7 H, MCH 31.3, MCHC 31.3 L, RDW Std Deviation 77.8 H, RDW Coeff of Yonis 21.4 H, Plt Count 183, MPV 10.2, Immature Gran % (Auto) 1.000 H, Neut % (Auto) 71.4 H, Lymph % (Auto) 15.0 L, Owen % (Auto) 11.4 H, Eos % (Auto) 0.7, Baso % (Auto) 0.5, A bsolute Neuts (auto) 8.5 H, Absolute Lymphs (auto) 1.78, Nucleated RBC % 0.3, Differential Comment SCANNED, Polychromasia RARE, Anisocytosis 2+, Microcytosis 1+, Macrocytosis 1+, Ovalocytes RARE, ESR 48 H, Sodium 134, Potassium 4.7, C hloride 92 L, Carbon Dioxide 27.9, Anion Gap 14, BUN 31 H, Creatinine 3.20 H, E stim Creat Clear Calc 12.85 L, Est GFR (MDRD) Non-Af 14 L, BUN/Creatinine Ratio 9.5 L, Glucose 129 H, Calcium 8.8, C-React Prot Ext Range 82.90 H Charges/Coding Visit Charges Inpatient E&M: 53195 Init Hosp L3 Procedures Hospitalists Procedures: 00430 Advncd Care Plan 30 Min
[2025-06-17 17:12] LABS: Anisocytosis 2+; Differential Comment SCANNED; Macrocytosis 1+; Microcytosis 1+; Polychromasia RARE
--- NOTE | 2025-06-17 17:24 | EKG12_ITS ---
Test Reason : PRE OP Blood Pressure : */* mmHG Vent. Rate : 74 BPM Atrial Rate : 58 BPM P-R Int : * ms QRS Dur : 170 ms QT Int : 494 ms P-R-T Axes : * -29 172 degrees QTcB Int : 548 ms Ventricular-paced rhythm Abnormal ECG Confirmed by TORSTEN UGARTE, MIKE ([id number]), film and video editor ROJELIO TADEO ([id number]) on 06/19/2025 1:18:12 PM Referred By: Confirmed By: MIKE SARMIENTO MD
--- OUTSIDE RECORDS SUMMARY | 2025-06-17 17:38 | XMS RPT_ITS | CCD ---
Author Organization [facility] CliniSyid Care Team Providers Care Safety Technician Name Role Phone Cruz Le Primary Care [...] Care Provider Yin Agustin MD Unavailable [phone] Helen CAMACHO, Sheridan Collins Unavailable Unavailable Carla Burdick MD Unavailable Carla Burdick MD Unavailable Yin Agustin MD Unavailable Carla Burdick MD Unavailable Doreen Le PA-C Primary Care Provider Carla Burdick MD Unavailable Sonny Lund MD Unavailable Doreen Le PA-C Primary Care Provider No, Referral Unavailable Unavailable Yin Agustin MD Unavailable [phone] Carla Burdick MD Unavailable Sonny Lund MD Unavailable Sonny Lund MD Unavailable No, Referral Unavailable Unavailable Yin Agustin MD Unavailable Carla Burdick MD Unavailable Doreen Le PA-C Primary Care Provider [phone] Doreen LE Referring Unavailable Doreen LE Primary Care Unavailable Doreen LE Primary Care Unavailable Carla Burdick MD Unavailable Sonny Lund MD Unavailable Dianne Le PA-C Primary Care Provider Unavailable Haagen CLARITY DEVELOPER.KNIT GOODS MENDER, Deysi Unavailable Suppan CLARITY DEVELOPER.KNIT GOODS MENDER, Sandra A Unavailable Sonny Lund MD Unavailable Haagen CLARITY DEVELOPER.KNIT GOODS MENDER, Deysi Primary Care Provider Sonny Lund MD [...] Unavailable HAAGEN, DEYSI Primary Care Unavailable Haagen CHEMICAL RESEARCH TECHNICIAN-C, Deysi Primary Care Provider Piero UGARTE, Dr. [...] Unavailable Nolan UGARTE, Dr. Portillo Other Provider [phone] Mo UGARTE, Yamileth Other Provider Unavailable Dr. Josefina Arrieta DO Other Provider Ab UGARTE, Dr. Whitehead Other Provider Javan UGARTE, Dr. Balderrama Other Provider Matheus UGARTE, Dr. Grimes Other Provider Dr. Marty Hopkins MD Other Provider Scott UGARTE, Dr. Lujan Other Provider [phone] Alvaro UGARTE, Dr. Garcia Other Provider [...] Dr. Vincent Cardozo Primary Care Provider [phone] Ha DO, Dr. Malave Referring Provider Jesika Flores MD, Dr. Vincent Cardozo Attending Provider Dr. Juan Diego Huynh MD Attending Provider Wilman CURRY, Dr. Osborne Referring Provider Mark UGARTE, Dr. Vincent Cardozo Referring Provider [phone] Pau Davis Attending Provider Unavailable Bird UGARTE, Dr. Curran Emergency Provider Bharat CHEMICAL RESEARCH TECHNICIAN-C, [facility] Primary Care Provider Piero UGARTE, Dr. Durán [...] Flores MD, Chi Primary Care Provider [phone] Mark UGARTE, Dr. Vincent Cardozo Attending Provider Dr. Juan Diego Huynh MD Attending Provider Dr. Dianne Stovall DO Referring Provider Mark UGARTE, Dr. Vincent Cardozo Referring Provider Pau Davis Attending Provider Unavailable Bird UGARTE, Dr. Curran Attending Provider Bird UGARTE, Dr. Curran Emergency Provider [phone] Blossom UGARTE, Dr. Beck Attending Provider Blossom UGARTE, Dr. Beck Other Provider Dr. Yaniv Masters MD Referring Provider Mark UGARTE, Dr. Vincent Cardozo Referring Provider Dr. Ric Noriega MD Attending Provider Dr. Ric Noriega MD Referring Provider Bharat CHEMICAL RESEARCH TECHNICIAN-C, Deysi Primary Care Physician [phone] Dr. Luis Armando Harry MD Emergency Department Physician Arron UGARTE, Dr. Garcia Admitting Physician capsule 1 10/18/2023 12/10/2024 Discontinued (Erroneous entry) Comment on above: Take 1 capsule by [facility] once daily. pantoprazole 40 mg delayed release oral tablet (20 sources) Proton Pump Inhibitor Start: End: Start: 10-11-2024 End: 11-20-2025 take 1 tablet [...] on above: Take 2 tablets by mo [facility] once daily for 5 days. Psyllium [...] on above: Take 1 tablet by kalyan daily at bedtime. ubidecarenone 100 mg oral capsule (20 sources) Start: 03-24-2019 End: 01-07-2025 UBIDECARENONE (COQ-10 ORAL) (20 sources) End: 12-10-2024 take 1 capsule by mouth once daily UBIDECARENONE (COQ-10 ORAL) Take 1 capsule by mouth once daily. 12/10/2024 Discontinued (Erroneous entry) take 1 capsule by mouth once oleysa ly UBIDECARENONE (COQ-10 ORAL) Take 1 capsule by mouth once daily. Active take 1 capsule by mouth once olesya ly UBIDECARENONE (COQ-10 ORAL) Take 1 capsule by mouth once daily. 0 Suspended take 1 capsule by mouth once olesya ly UBIDECARENONE (COQ-10 ORAL) Take 1 capsule by mouth once daily. 0 Active Comment on above: Take 1 capsule by mo [facility] once daily. zolpidem tartrate 5 mg oral [...] 03-20-2022 Chronic Comment on above: 10/21/[address] [employer] [place] XT DR TRELL Bartlett [id number] pulse generator programmed as AAIR [...] current use of drug therapy; Translations: [Other correction (current) drug therapy] Onset: 7 Resolved: 2 [...] source) Hypothyroidism, unspecified; Translations: [Hypothyroidism, unspecified] Onset: Chronic Transient cerebral ischemia (20 sources) Transient cerebral ischemia; Translations: [Transient cerebral ischemic attack, unspecified] Onset: 5 01-08-2025 Chronic Unclassified (2 sources) Patient encounter status; Translations: [Routine health maintenance] Onset: 4 01-18-2019 Unclassified (3 sources) Drug therapy finding; Translations: [nursing home current use of antiarrhythmic medical therapy] Onset: [...] sources) Long-term current use of anticoagulant; Translations: [nursing home (current) use of anticoagulants] Onset: 4 01-18-2019 Episodic Other aftercare (20 sources) 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; Translations: [nursing home (current) use of antithrombotics/antipl atelets] Onset: 2 03-21-2022 Episodic Other aftercare (20 sources) Acquired platelet function disorder; Translations: [manager terminal (current) use of antithrombotics/antipl atelets] Onset: 2 [...] Visit Reporton Cardiology Visit Report Normal [facility] Absolute lymphocyte countOrd ered By: Vincent Flores on 05-02-2025 Lymphocytes Auto (Unsp spec) [#/Vol] 1.70 10*3/uL 0.83-4.51 [facility] Anion gap in Serum or Plasma Ordered By: Vincnet Flores on 05-02-2025 Anion gap [Moles/Vol] 15 mmol/L - [facility] Automated lymphocyte count a s percentage of total leukocytesOrdered By: Vincent Flores on 05-02-2025 Lymphocytes/100 WBC Auto (Unsp spec) 25.9 % [facility] BUN/creatinine ratioOrdered By: Vincent Flores on 05-02-2025 Urea nitrogen/Creatinine [Mass ratio] 39.5 mg/mg High 04-23 [facility] Basophil percentageOrdered B y: Vincent Flores on 05-02-2025 Basophils/100 WBC (Bld) 0.6 % 0-1 [facility] Bilirubin, totalOrdered By: Vincent Flores on 05-02-2025 Bilirubin [Mass/Vol] 0.96 mg/dL 0.00-1.30 [facility] CBC W/Diff, Automatedon 04-05 Anisocytosis Ql (Bld) 1+ Normal [facility] Comment on above: Performed By: #### L 501.9520, L500.4050, L100.0100, L506.1001 ####[facility] [address] [place], [address] Carbon dioxide, total [Moles /volume] in Central venous bloodOrdered By: Vincent Flores on 05-02-2025 CO2 [Moles/Vol] 27.1 mmol/L 21.0-32.0 [facility] Chloride assayOrdered By: Ishmael Flores on 05-02-2025 Chloride [Moles/Vol] 90 mmol/L Low 98-108 [facility] Comprehensive Metabolic Prof ilon 05-02-2025 Albumin [Mass/Vol] 4.0 g/dL Normal 3.4-4.8 [facility] Comment on above: Performed By: #### L [id number], L500.4050, L100.0100, L506.1001 ####[facility] [address] [place], [address] Albumin/Globulin [Mass ratio] 1.2 {ratio} Normal 0.9-2.4 [facility] Comment on above: Performed By: #### L [id number], L500.4050, L100.0100, L506.1001 ####[facility] [address] [place], [address] ALK PHOS 104 U/L Normal 35-104 [facility] Comment on above: Performed By: #### L [id number], L500.4050, L100.0100, L506.1001 ####[facility] [address] [place], [address] ALT [Catalytic activity/Vol] 13 U/L Normal <=34 [facility] Comment on above: Performed By: #### L [id number], L500.4050, L100.0100, L506.1001 ####[facility] [address] [place], [address] AST [Catalytic activity/Vol] 31 U/L Normal <=31 [facility] Comment on above: Performed By: #### L [id number], L500.4050, L100.0100, L506.1001 ####[facility] [address] [place], [address] Bilirubin [Mass/Vol] 0.96 mg/dL Normal 0.00-1.30 [facility] Comment on above: Performed By: #### L 501.9520, L500.4050, L100.0100, L506.1001 ####[facility] [address] [place], [address] BUN/CRE 39.5 RATIO High 10-20 [facility] Comment on above: Performed By: #### L 501.9520, [id number], L100.0100, L506.1001 ####[facility] [address] [place], [address] Calcium [Mass/Vol] 9.6 mg/dL Normal 7.6-11.0 [facility] Comment on above: Performed By: #### L 501.9520, [id number], L100.0100, L506.1001 ####[facility] [address] [place], [address] Chloride [Moles/Vol] 90 mmol/L Low 98-108 [facility] Comment on above: Performed By: #### L 501.9520, [id number], L100.0100, L506.1001 ####[facility] [address] [place], [address] CO2 [Moles/Vol] 27.1 mmol/L Normal 21.0-32.0 [facility] Comment on above: Performed By: #### L 501.9520, [id number], L100.0100, L506.1001 ####[facility] [address] [place], [address] Creatinine [Mass/Vol] 1.86 mg/dL High 0.70-1.20 [facility] Comment on above: Performed By: #### L 501.9520, [id number], L100.0100, L506.1001 ####[facility] [address] [place], [address] GAP 15 Normal 5-15 [facility] Comment on above: Performed By: #### L 501.9520, L500.4050, L100.0100, L506.1001 ####[facility] [address] [place], [address] GFR/1.73 sq M.predicted among non-blacks MDRD (S/P/Bld) [Vol rate/Area] 27 mL/min/{1.73_m2} Low >60 [facility] Comment on above: Result Comment: mL/m in/1.73m2 CKD-EPI Creatinine Equation (2020) Performed By: #### L 501.9520, L500.4050, L100.0100, L506.1001 ####[facility] [address] [place], [address] Globulin (S) [Mass/Vol] 3.3 g/dL Normal 2.2-4.2 [facility] Comment on above: Performed By: #### L 501.9520, L500.4050, L100.0100, L506.1001 ####[facility] [address] [place], [address] Glucose [Mass/Vol] 142 mg/dL High 70-99 [facility] Comment on above: Performed By: #### L 501.9520, L500.4050, L100.0100, L506.1001 ####[facility] [address] [place], [address] Potassium [Moles/Vol] 3.6 mmol/L Normal 3.3-5.1 [facility] Comment on above: Performed By: #### L 501.9520, L500.4050, L100.0100, L506.1001 ####[facility] [address] [place], [address] Sodium [Moles/Vol] 132 mmol/L Low 133-145 [facility] Comment on above: Performed By: #### L 501.9520, L500.4050, L100.0100, L506.1001 ####[facility] [address] [place], [address] T PROT 7.3 g/dL Normal 5.9-8.4 [facility] Comment on above: Performed By: #### L 501.9520, [id number], L100.0100, L506.1001 ####[facility] [address] [place], [address] Urea nitrogen [Mass/Vol] 73 mg/dL High 4-19 [facility] Comment on above: Performed By: #### L 501.9520, L500.4050, L100.0100, L506.1001 ####[facility] [address] [place], [address] Eosinophil percentageOrdered By: Vincent Flores on 05-02-2025 Eosinophils/100 WBC (Bld) 0.9 % 0-5 [facility] Erythrocyte distribution wid th ratioOrdered By: Vincent Flores on 05-02-2025 Erythrocyte distribution width (RBC) [Ratio] 22.2 % High 11.6-14.6 [facility] Erythrocyte distribution wid th standard deviationOrdered By: Vincent Flores on 05-02-2025 Erythrocyte distribution width (RBC) [Ratio] 77.4 fl High 35.1-43.9 [facility] Glomerular filtration rate ( GFR) estimation/1.73 sq m using serum, plasma, or whole bOrdered By: Vincent Flores on 05-02-2025 GFR/1.73 sq M.predicted among non-blacks MDRD (S/P/Bld) [Vol rate/Area] 27 mL/min/{1.73_m2} Low >60 [facility] Hematocrit Auto (Bld) [Volum e fraction]Ordered By: Vincent Flores on 05-02-2025 Hematocrit (Bld) [Volume fraction] 33.7 % Low 37-47 [facility] Hemoglobin measurementOrdere d By: Vincent Flores on 05-02-2025 Hemoglobin (Bld) [Mass/Vol] 11.0 g/dL Low 12.0-15.0 [facility] Immature granulocytes/100 WB C Auto (Bld)Ordered By: Vincent Flores on 05-02-2025 Immature granulocytes/100 WBC (Bld) 0.600 % 0.0-0.9 [facility] MCV (mean corpuscular volume ) determinationOrdered By: Vincent Flores on 05-02-2025 MCV (RBC) [Entitic vol] 93.9 fL 81-99 [facility] Mean corpuscular hemoglobin (MCH) determinationOrdered By: Vincent Flores on 05-02-2025 MCH (RBC) [Entitic mass] 30.6 pg 27.0-32.0 [facility] Monocyte percentageOrdered B y: Vincent Flores on 05-02-2025 Monocytes/100 WBC (Bld) 14.0 % High 0-10 [facility] Neutrophil percentageOrdered By: Vincent Flores on 05-02-2025 Neutrophils/100 WBC (Bld) 58.0 % 47-70 [facility] No Panel InformationOrdered By: Vincent Flores on 05-02-2025 1+ [facility] 31 U/L <32 [facility] Platelet countOrdered By: Ishmael Flores on 05-02-2025 Platelets (Bld) [#/Vol] 131 10*3/uL Low 150-450 [facility] Potassium measurement (mass/ volume)Ordered By: Vincent Flores on 05-02-2025 Potassium (Unsp spec) [Mass/Vol] 3.6 mmol/L 3.3-5.1 [facility] RBC Auto (Bld) [#/Vol]Ordere d By: Vincent Flores on 05-02-2025 RBC (Bld) [#/Vol] 3.59 10*6/uL Low 4.2-5.4 [facility] Serum creatinine measurement (mass/volume)Ordered By: Vincent Flores on 05-02-2025 Creatinine [Mass/Vol] 1.86 mg/dL High 0.70-1.20 [facility] Serum globulin measurementOr dered By: Vincent Flores on 05-02-2025 Globulin (S) [Mass/Vol] 3.3 g/dL 2.2-4.2 [facility] Serum glucose measurement (m ass/volume)Ordered By: Vincent Flores on 05-02-2025 Glucose [Mass/Vol] 142 mg/dL High 70-99 [facility] Serum or plasma alanine craven otransferase (ALT) measurementOrdered By: Vincent Flores 05-02-2025 ALT [Catalytic activity/Vol] 13 U/L <35 [facility] Serum or plasma albumin bijan urement (mass/volume)Ordered By: Vincent Flores 05-02-2025 Albumin [Mass/Vol] 4.0 g/dL 3.4-4.8 [facility] Serum or plasma albumin/glob ulin mass ratioOrdered By: Vincent Flores 05-02-2025 Albumin/Globulin [Mass ratio] 1.2 {ratio} 0.9-2.4 [facility] Serum or plasma alkaline da sphatase measurementOrdered By: Vincent Flores 05-02-2025 ALP [Catalytic activity/Vol] 104 U/L 35-104 [facility] Serum or plasma calcium bijan urement (mass/volume)Ordered By: Vincent Flores on 05-02-2025 Calcium [Mass/Vol] 9.6 mg/dL 7.6-11.0 [facility] Serum or plasma urea nitroge n measurement (mass/volume)Ordered By: Vincent Flores on 05-02-2025 Urea nitrogen [Mass/Vol] 73 mg/dL High 4-19 [facility] Sodium levelOrdered By: Vincent Flores on 05-02-2025 Sodium [Moles/Vol] 132 mmol/L Low 133-145 [facility] TSH DL <= 0.005 mIU/L QnOrde red By: Vincent Flores on 05-02-2025 TSH Qn 3.250 uIU/mL 0.300-4.200 [facility] Thyroid Stim Hormone (TSH)on 05-02-2025 TSH 3.250 uIU/mL Normal 0.300-4.200 [facility] Comment on above: Performed By: #### L 501.9520, L500.4050, L100.0100, L506.1001 ####[facility] [address] [place], [place], [address] Total proteinOrdered By: Vincent Flores on 05-02-2025 Protein [Mass/Vol] 7.3 g/dL 5.9-8.4 [facility] Vitamin D,25 Hydroxyon 05-02 Vitamin D 25-OH 35.0 ng/mL Normal 30-100 [facility] Comment on above: Result Comment: Haydee min D StatusDeficiency: <20 ng/mL (50nmol/L)Insufficiency: 20-30 ng/mL (50-75 nmol/L)Sufficiency: 30-100 ng/mL (75-250 nmol/L)Toxicity: >100 ng/mL (>250 nmol/L) Performed By: #### L 501.9520, L500.4050, L100.0100, L506.1001 ####[facility] [address] [place], [place], [address] White blood cell (WBC) count Ordered By: Vincent Flores on 05-02-2025 WBC (Bld) [#/Vol] 6.6 10*3/uL 4.4-11.0 [facility] Absolute lymphocyte countOrd ered By: Ric Noriega on 04-24-2025 Lymphocytes Auto (Unsp spec) [#/Vol] 1.46 10*3/uL 0.83-4.51 [facility] Automated lymphocyte count a s percentage of total leukocytesOrdered By: Ric Agudelothelma on 04-24-2025 Lymphocytes/100 WBC Auto (Unsp spec) 26.4 % 19-41 [facility] Basophil percentageOrdered B y: Ric Noriega on 04-24-2025 Basophils/100 WBC (Bld) 0.7 % 0-1 [facility] CBC W/Diff, Automatedon 04-05 Absolute Lymph 1.46 X10 3/uL Normal 0.83-4.51 [facility] Comment on above: Performed By: #### L 503.6550, L503.6030, L100.0100, L100.9950 ####[facility] [address] [place], [address] Absolute Neut 3.2 X10 3/uL Normal 2.0-7.7 [facility] Comment on above: Performed By: #### L 503.6550, L503.6030, L100.0100, L100.9950 ####[facility] [address] [place], [address] Basophils/100 WBC (Bld) 0.7 % Normal 0-1 [facility] Comment on above: Performed By: #### L 503.6550, L503.6030, L100.0100, L100.9950 ####[facility] [address] [place], [address] Eosinophils/100 WBC (Bld) 1.3 % Normal 0-5 [facility] Comment on above: Performed By: #### L 503.6550, L503.6030, L100.0100, L100.9950 ####[facility] [address] [place], [address] Erythrocyte distribution width (RBC) [Ratio] 22.7 % High 11.6-14.6 [facility] Comment on above: Performed By: #### L 503.6550, L503.6030, L100.0100, L100.9950 ####[facility] [address] [place], [address] Hematocrit (Bld) [Volume fraction] 33.0 % Low 37-47 [facility] Comment on above: Performed By: #### L 503.6550, L503.6030, L100.0100, L100.9950 ####[facility] [address] [place], [address] Hemoglobin (Bld) [Mass/Vol] 10.6 g/dL Low 12.0-15.0 [facility] Comment on above: Performed By: #### L 503.6550, L503.6030, L100.0100, L100.9950 ####[facility] [address] [place], [address] IG% 0.400 Normal 0.0-0.9 [facility] Comment on above: Result Comment: IG% - Immature Granulocytes (promyelocytes, myelocytes andmetamyelocytes) > 1% indicates that a LEFT SHIFT is Present. Performed By: #### L 503.6550, L503.6030, L100.0100, L100.9950 ####[facility] [address] [place], [address] Lymphocytes/100 WBC (Bld) 26.4 % Normal 19-41 [facility] Comment on above: Performed By: #### L 503.6550, L503.6030, L100.0100, L100.9950 ####[facility] [address] [place], [address] MCH (RBC) [Entitic mass] 30.4 pg Normal 27.0-32.0 [facility] Comment on above: Performed By: #### L 503.6550, L503.6030, L100.0100, L100.9950 ####[facility] [address] [place], [address] MCHC (RBC) [Mass/Vol] 32.1 g/dL Normal 32-36 [facility] Comment on above: Performed By: #### L 503.6550, L503.6030, L100.0100, L100.9950 ####[facility] [address] [place], [address] MCV (RBC) [Entitic vol] 94.6 fL Normal 81-99 [facility] Comment on above: Performed By: #### L 503.6550, L503.6030, L100.0100, L100.9950 ####[facility] [address] [place], [address] Monocytes/100 WBC (Bld) 12.7 % High 0-10 [facility] Comment on above: Performed By: #### L 503.6550, L503.6030, L100.0100, L100.9950 ####[facility] [address] [place], [address] Neutrophils/100 WBC (Bld) 58.5 % Normal 47-70 [facility] Comment on above: Performed By: #### L 503.6550, L503.6030, L100.0100, L100.9950 ####[facility] [address] [place], [address] Nucleated RBC (Bld) [#/Vol] 0 10*3/uL Normal 0-5 [facility] Comment on above: Performed By: #### L 503.6550, L503.6030, L100.0100, L100.9950 ####[facility] [address] [place], [address] Platelet mean volume (Bld) [Entitic vol] 9.2 fL Normal 6.2-12.0 [facility] Comment on above: Performed By: #### L 503.6550, L503.6030, L100.0100, L100.9950 ####[facility] [address] [place], [address] Platelets (Bld) [#/Vol] 108 10*3/uL Low 150-450 [facility] Comment on above: Performed By: #### L 503.6550, L503.6030, L100.0100, L100.9950 ####[facility] [address] [place], [address] RBC (Bld) [#/Vol] 3.49 10*6/uL Low 4.2-5.4 [facility] Comment on above: Performed By: #### L 503.6550, L503.6030, L100.0100, L100.9950 ####[facility] [address] [place], [address] RDW SD 80.4 fl High 35.1-43.9 [facility] Comment on above: Performed By: #### L 503.6550, L503.6030, L100.0100, L100.9950 ####[facility] [address] [place], [address] WBC (Bld) [#/Vol] 5.5 10*3/uL Normal 4.4-11.0 [facility] Comment on above: Performed By: #### L 503.6550, L503.6030, L100.0100, L100.9950 ####[facility] [address] [place], [address] Eosinophil percentageOrdered By: Ric Noriega on 04-24-2025 Eosinophils/100 WBC (Bld) 1.3 % 0-5 [facility] Erythrocyte distribution wid th ratioOrdered By: Ric Noriega on 04-24-2025 Erythrocyte distribution width (RBC) [Ratio] 22.7 % High 11.6-14.6 [facility] Erythrocyte distribution wid th standard deviationOrdered By: Ric Noriega on 04-24-2025 Erythrocyte distribution width (RBC) [Ratio] 80.4 fl High 35.1-43.9 [facility] Ferritinon 04-24-2025 Ferritin [Mass/Vol] 135 ng/mL Normal 22-378 [facility] Comment on above: Performed By: #### L 503.6550, L503.6030, L100.0100, L100.9950 ####[facility] [address] [place], [place], [phone] Hematocrit Auto (Bld) [Volum e fraction]Ordered By: [facility] on 04-24-2025 Hematocrit (Bld) [Volume fraction] 33.0 % Low 37-47 [facility] [facility] Hemoglobin measurementOrdere d By: Ric Noriega on 04-24-2025 Hemoglobin (Bld) [Mass/Vol] 10.6 g/dL Low 12.0-15.0 [facility] Immature granulocytes/100 WB C Auto (Bld)Ordered By: Ric Noriega on 04-24-2025 Immature granulocytes/100 WBC (Bld) 0.400 % 0.0-0.9 [facility] Iron measurement (mass/mass) Ordered By: Ric Noriega on 04-24-2025 Iron (Unsp spec) [Mass/Mass] 119 ug/dL 50-170 [facility] Iron+Iron Binding Capacityon 04-24-2025 Iron [Mass/Vol] 119 ug/dL Normal 50-170 [facility] Comment on above: Performed By: #### L 503.6550, L503.6030, L100.0100, L100.9950 ####[facility] [address] [place], [address] IRON SATURATION 30.0 Normal 13-59 [facility] Comment on above: Performed By: #### L 503.6550, L503.6030, L100.0100, L100.9950 ####[facility] [address] [place], [address] TIBC 397 ug/dL Normal 250-450 [facility] Comment on above: Performed By: #### L 503.6550, L503.6030, L100.0100, L100.9950 ####[facility] [address] [place], [address] UIBC 278 ug/dL Normal 228-428 [facility] Comment on above: Performed By: #### L 503.6550, L503.6030, L100.0100, L100.9950 ####[facility] [address] [place], [address] MCV (mean corpuscular volume ) determinationOrdered By: Ric Noriega on 04-24-2025 MCV (RBC) [Entitic vol] 94.6 fL 81-99 [facility] Mean corpuscular hemoglobin (MCH) determinationOrdered By: Ric Noriega on 04-24-2025 MCH (RBC) [Entitic mass] 30.4 pg 27.0-32.0 [facility] Monocyte percentageOrdered B y: Ric Noriega on 04-24-2025 Monocytes/100 WBC (Bld) 12.7 % High 0-10 [facility] Neutrophil percentageOrdered By: Ric Noriega on 04-24-2025 Neutrophils/100 WBC (Bld) 58.5 % 47-70 [facility] No Panel InformationOrdered By: Ric Noriega on 04-24-2025 278 ug/dL 228-428 [facility] Oncology Visit Reporton 04-05 Oncology Visit Report Normal [facility] Platelet countOrdered By: Luis Noriega on 04-24-2025 Platelets (Bld) [#/Vol] 108 10*3/uL Low 150-450 [facility] RBC Auto (Bld) [#/Vol]Ordere d By: Ric Noriega on 04-24-2025 RBC (Bld) [#/Vol] 3.49 10*6/uL Low 4.2-5.4 [facility] Retic Panelon 04-24-2025 IM RET FRACTION 13.80 Normal 3.00-15.90 [facility] Comment on above: Performed By: #### L 503.6550, L503.6030, L100.0100, L100.9950 ####[facility] [address] [place], [address] RET-HE 30.4 pg Normal 30-35 [facility] Comment on above: Performed By: #### L 503.6550, L503.6030, L100.0100, L100.9950 ####[facility] [address] [place], [address] Retic Count 1.82 High 0.5-1.5 [facility] Comment on above: Performed By: #### L 503.6550, L503.6030, L100.0100, L100.9950 ####[facility] [address] [place], [address] Reticulocyte hemoglobin equi valent (RET-He) measurementOrdered By: Ric Noriega on 04-24-2025 Hemoglobin (Reticulocytes) [Entitic mass] 30.4 pg 30-35 [facility] Reticulocytes Auto (Bld) [#/ Vol]Ordered By: Ric Noriega on 04-24-2025 Reticulocytes/100 RBC (Bld) 1.82 % High 0.5-1.5 [facility] Serum or plasma ferritin austin surement (mass/volume)Ordered By: Ric Noriega on 04-24-2025 Ferritin [Mass/Vol] 135 ng/mL 22-378 [facility] Serum or plasma iron saturat ion measurement (mass fraction)Ordered By: Ric Noriega on 04-24-2025 Iron saturation [Mass fraction] 30.0 % 13-59 [facility] White blood cell (WBC) count Ordered By: Ric Noriega on 04-24-2025 WBC (Bld) [#/Vol] 5.5 10*3/uL 4.4-11.0 [facility] Wound Ctr History AND Physic apollo 04-23-2025 Wound Ctr History & Physical Normal [facility] Culture, Anaerobic Any Sourc andie 04-08-2025 CUAN No anaerobic bacteri a isolated. Normal [facility] Comment on above: Performed By: #### L 8200.1075, M100.2000, M100.4001, M100.3000 ####[facility] [address] [place], [address] Wound Cultureon 04-04-2025 WC Normal [facility] Comment on above: Performed By: #### L 8200.1075, M100.2000, M100.4001, M100.3000 ####[facility] [address] [place], [address] Gram Stainon 04-03-2025 GS Acceptable Specimen? Yes (<25 Epithelial cells per/lpf) Gram Stain 2+ White Blood Cells 1+ Red Blood Cells No Epithelial cells 1+ Gram positive cocci Normal [facility] Comment on above: Performed By: #### L 8200.1075, M100.1999, M100.4001, M100.3000 ####[facility] [address] [place], [address] Anaerobic cultureOrdered By: Vincent Flores on 04-02-2025 Bacteria identified Anaer cx Nom (Unsp spec) No anaerobic bacteria isolated. [facility] Gram stainOrdered By: Vincent cintron on 04-02-2025 Microscopic observation Gram stain Nom (Unsp spec) [facility] Microscopic observation Gram stain Nom (Unsp spec) [facility] MRSA Wound DNA by PCRon 03-06 MRSA DNA ASSAY Negative Normal Negative [facility] Comment on above: Order Comment: RIGHT ARM Performed By: #### L 8200.1075, M100.2000, M100.4001, M100.3000 ####[facility] [address] [place], [address] SA DNA ASSAY Positive Abnormal Negative [facility] Comment on above: Order Comment: RIGHT ARM Performed By: #### L 8200.1075, M100.2000, M100.4001, M100.3000 ####[facility] [address] [place], [place], [address] Staphylococcus aureus DNA de tection by probe and target amplification methodOrdered By: Vincent Flores on 04-02-2025 S. aureus DNA RANDOLPH+probe Ql (Unsp spec) Positive High Negative [facility] Emergency Department Summary on 03-22-2025 Emergency Department Summary Normal [facility] Erythropoietinon 03-15-2025 ERYTHROPOIETIN 190.9 mIU/mL High 2.6-18.5 [facility] Comment on above: Result Comment: [employer] DxI 800 Immunoassay SystemValues obtained with different assay methods or kits cannotbe used interchangeably. Results cannot be interpreted asabsolute evidence of the presence or absence of malignantdisease.Performed at: [facility] [id number] Director: Chuy Rizvi PhD, Phone: [phone] Performed By: #### L 100.9950, L100.0100, L3100.1350, L503.6550, L503.0106, L503.6030, L500.4050 ####[facility] [address] [place], [place], [id number] Absolute lymphocyte countOrd ered By: Ric Noriega on 03-13-2025 Lymphocytes Auto (Unsp spec) [#/Vol] 1.60 10*3/uL 0.83-4.51 [facility] Anion gap in Serum or Plasma Ordered By: Ric Noriega on 03-13-2025 Anion gap [Moles/Vol] 16 mmol/L High 5-15 [facility] Automated lymphocyte count a s percentage of total leukocytesOrdered By: Ric Noriega on 03-13-2025 Lymphocytes/100 WBC Auto (Unsp spec) 24.2 % 19-41 [facility] BUN/creatinine ratioOrdered By: Ric Noriega on 03-13-2025 Urea nitrogen/Creatinine [Mass ratio] 24.6 mg/mg High 10-20 [facility] Basophil percentageOrdered B y: Ric Noriega on 03-13-2025 Basophils/100 WBC (Bld) 0.9 % 0-1 [facility] Bilirubin, totalOrdered By: Ric Noriega on 03-13-2025 Bilirubin [Mass/Vol] 1.04 mg/dL 0.00-1.30 [facility] Blood manual differential co mment interpretation (narrative result)Ordered By: Ric Noriega on 03-13-2025 Manual differential comment Cristhian (Bld) [Interp] SCANNED [facility] Blood polychromasia detectio n by light microscopyOrdered By: Ric Noriega on 03-13-2025 Polychromasia LM Ql (Bld) 1+ [facility] CBC W/Diff, Automatedon Anisocytosis Ql (Bld) 2+ Normal [facility] Comment on above: Performed By: #### L 100.9950, L100.0100, L3100.1350, L503.6550, L503.0106, L503.6030, L500.4050 ####[facility] [address] [place], [place], [id number] POLYCHROMASIA 1+ Normal [facility] Comment on above: Performed By: #### L 100.9950, L100.0100, L3100.1350, L503.6550, L503.0106, L503.6030, L500.4050 ####[facility] [address] [place], [place], [id number] PLT EST ADEQUATE Normal ADEQ [facility] Comment on above: Performed By: #### L 100.9950, L100.0100, L3100.1350, L503.6550, L503.0106, L503.6030, L500.4050 ####[facility] [address] [place], [place], [id number] SMEAR COMMENT SCANNED Normal [facility] Comment on above: Performed By: #### L 100.9950, L100.0100, L3100.1350, L503.6550, L503.0106, L503.6030, L500.4050 ####[facility] [address] [place], [address] Carbon dioxide, total [Moles /volume] in Central venous bloodOrdered By: Rci Noriega on 03-13-2025 CO2 [Moles/Vol] 24.4 mmol/L 21.0-32.0 [facility] Chloride assayOrdered By: Luis Noriega on 03-13-2025 Chloride [Moles/Vol] 92 mmol/L Low 98-108 [facility] Comprehensive Metabolic Prof ilon 03-13-2025 Albumin [Mass/Vol] 4.0 g/dL Normal 3.4-4.8 [facility] Comment on above: Performed By: #### L 100.9950, L100.0100, L3100.1350, L503.6550, L503.0106, L503.6030, L500.4050 ####[facility] [address] [place], [address] Albumin/Globulin [Mass ratio] 1.2 {ratio} Normal 0.9-2.4 [facility] Comment on above: Performed By: #### L 100.9950, L100.0100, L3100.1350, L503.6550, L503.0106, L503.6030, L500.4050 ####[facility] [address] [place], [address] ALK PHOS 136 U/L High 35-104 [facility] Comment on above: Performed By: #### L 100.9950, L100.0100, L3100.1350, L503.6550, L503.0106, L503.6030, L500.4050 ####[facility] [address] [place], [address] ALT [Catalytic activity/Vol] 16 U/L Normal <=34 [facility] Comment on above: Performed By: #### L 100.9950, L100.0100, L3100.1350, L503.6550, L503.0106, L503.6030, L500.4050 ####[facility] [address] [place], [id number] AST [Catalytic activity/Vol] 33 U/L High <=31 [facility] Comment on above: Performed By: #### L 100.9950, L100.0100, L3100.1350, L503.6550, L503.0106, L503.6030, L500.4050 ####[facility] [address] [place], [address] Bilirubin [Mass/Vol] 1.04 mg/dL Normal 0.00-1.30 [facility] Comment on above: Performed By: #### L 100.9950, L100.0100, L3100.1350, L503.6550, L503.0106, L503.6030, L500.4050 ####[facility] [address] [place], [address] BUN/CRE 24.6 RATIO High 10-20 [facility] Comment on above: Performed By: #### L 100.9950, L100.0100, L3100.1350, L503.6550, L503.0106, L503.6030, L500.4050 ####[facility] [address] [place], [address] Calcium [Mass/Vol] 9.2 mg/dL Normal 7.6-11.0 [facility] Comment on above: Performed By: #### L 100.9950, L100.0100, L3100.1350, L503.6550, L503.0106, L503.6030, L500.4050 ####[facility] [address] [place], [address] Chloride [Moles/Vol] 92 mmol/L Low 98-108 [facility] Comment on above: Performed By: #### L 100.9950, L100.0100, L3100.1350, L503.6550, L503.0106, L503.6030, L500.4050 ####[facility] [address] [place], [place], [phone]) CO2 [Moles/Vol] 24.4 mmol/L Normal 21.0-32.0 [facility] Comment on above: Performed By: #### L 100.9950, L100.0100, L3100.1350, L503.6550, L503.0106, L503.6030, L500.4050 ####[facility] [address] [place], [place], [phone] Creatinine [Mass/Vol] 2.12 mg/dL High 0.70-1.20 [facility] Comment on above: Performed By: #### L 100.9950, L100.0100, L3100.1350, L503.6550, L503.0106, L503.6030, L500.4050 ####[facility] [address] [place], [place], [id number] GAP 16 High 5-15 [facility] Comment on above: Performed By: #### L 100.9950, L100.0100, L3100.1350, L503.6550, L503.0106, L503.6030, L500.4050 ####[facility] [address] [place], [place], [phone] GFR/1.73 sq M.predicted among non-blacks MDRD (S/P/Bld) [Vol rate/Area] 23 mL/min/{1.73_m2} Low >60 [facility] Comment on above: Result Comment: mL/m in/1.73m2 CKD-EPI Creatinine Equation (2020) Performed By: #### L 100.9950, L100.0100, L3100.1350, L503.6550, L503.0106, L503.6030, L500.4050 ####[facility] [address] [place], [address] Globulin (S) [Mass/Vol] 3.3 g/dL Normal 2.2-4.2 [facility] Comment on above: Performed By: #### L 100.9950, L100.0100, L3100.1350, L503.6550, L503.0106, L503.6030, L500.4050 ####[facility] [address] [place], [address] Glucose [Mass/Vol] 139 mg/dL High 70-99 [facility] Comment on above: Performed By: #### L 100.9950, L100.0100, L3100.1350, L503.6550, L503.0106, L503.6030, L500.4050 ####[facility] [address] [place], [address] Potassium [Moles/Vol] 3.8 mmol/L Normal 3.3-5.1 [facility] Comment on above: Performed By: #### L 100.9950, L100.0100, L3100.1350, L503.6550, L503.0106, L503.6030, L500.4050 ####[facility] [address] [place], [address] Sodium [Moles/Vol] 132 mmol/L Low 133-145 [facility] Comment on above: Performed By: #### L 100.9950, L100.0100, L3100.1350, L503.6550, L503.0106, L503.6030, L500.4050 ####[facility] [address] [place], [address] T PROT 7.3 g/dL Normal 5.9-8.4 [facility] Comment on above: Performed By: #### L 100.9950, L100.0100, L3100.1350, L503.6550, L503.0106, L503.6030, L500.4050 ####[facility] [address] [place], [address] Urea nitrogen [Mass/Vol] 52 mg/dL High 4-19 [facility] Comment on above: Performed By: #### L 100.9950, L100.0100, L3100.1350, L503.6550, L503.0106, L503.6030, L500.4050 ####[facility] [address] [place], [address] Eosinophil percentageOrdered By: Ric Noriega on 03-13-2025 Eosinophils/100 WBC (Bld) 1.2 % 0-5 [facility] Erythrocyte distribution wid th ratioOrdered By: Ric Noriega on 03-13-2025 Erythrocyte distribution width (RBC) [Ratio] 25.2 % High 11.6-14.6 [facility] Erythrocyte distribution wid th standard deviationOrdered By: [facility] on 03-13-2025 Erythrocyte distribution width (RBC) [Ratio] 82.1 fl High 35.1-43.9 [facility] Ferritinon 03-13-2025 Ferritin [Mass/Vol] 48 ng/mL Normal 22-378 [facility] Comment on above: Performed By: #### L 100.9950, L100.0100, L3100.1350, L503.6550, L503.0106, L503.6030, L500.4050 ####[facility] [address] [place], [address] Glomerular filtration rate ( GFR) estimation/1.73 sq m using serum, plasma, or whole bOrdered By: Ric Noriega on 03-13-2025 GFR/1.73 sq M.predicted among non-blacks MDRD (S/P/Bld) [Vol rate/Area] 23 mL/min/{1.73_m2} Low >60 [facility] Hematocrit Auto (Bld) [Volum e fraction]Ordered By: Ric Noriega on 03-13-2025 Hematocrit (Bld) [Volume fraction] 27.8 % Low 37-47 [facility] Hemoglobin measurementOrdere d By: Ric Noriega on 03-13-2025 Hemoglobin (Bld) [Mass/Vol] 8.7 g/dL Low 12.0-15.0 [facility] Immature granulocytes/100 WB C Auto (Bld)Ordered By: [facility] Norie[facility] on 03-13-2025 Immature granulocytes/100 WBC (Bld) 0.200 % 0.0-0.9 [facility] Iron measurement (mass/mass) Ordered By: [facility] Nor[facility] on 03-13-2025 Iron (Unsp spec) [Mass/Mass] 39 ug/dL Low 50-170 [facility] Iron+Iron Binding Capacityon 03-13-2025 TIBC 453 ug/dL High 250-450 [facility] Comment on above: Performed By: #### L 100.9950, L100.0100, L3100.1350, L503.6550, L503.0106, L503.6030, L500.4050 ####[facility] [address] [facility] [place], [address] MCV (mean corpuscular volume ) determinationOrdered By: [facility] Noriega on 03-13-2025 MCV (RBC) [Entitic vol] 89.7 fL 81-99 [facility] Mean corpuscular hemoglobin (MCH) determinationOrdered By: [facility] Norie[facility] on 03-13-2025 MCH (RBC) [Entitic mass] 28.1 pg 27.0-32.0 [facility] Monocyte percentageOrdered B y: Ric Noriega on 03-13-2025 Monocytes/100 WBC (Bld) 14.7 % High 0-10 [facility] Neutrophil percentageOrdered By: [facility] Hari on 03-13-2025 Neutrophils/100 WBC (Bld) 58.8 % 47-70 [facility] No Panel InformationOrdered By: [facility] Hari on 03-13-2025 2+ [facility] 33 U/L High <32 [facility] 414 ug/dL 228-428 [facility] Oncology Visit Reporton Oncology Visit Report Normal [facility] Platelet countOrdered By: Luis Noriega on 03-13-2025 Platelets (Bld) [#/Vol] 184 10*3/uL 150-450 [facility] Platelet estimateOrdered By: Ric Noriega on 03-13-2025 Platelets LM Ql (Bld) ADEQUATE ADEQ [facility] Potassium measurement (mass/ volume)Ordered By: Ric Noriega on 03-13-2025 Potassium (Unsp spec) [Mass/Vol] 3.8 mmol/L 3.3-5.1 [facility] RBC Auto (Bld) [#/Vol]Ordere d By: Ric Noriega on 03-13-2025 RBC (Bld) [#/Vol] 3.10 10*6/uL Low 4.2-5.4 [facility] Retic Panelon 03-13-2025 IM RET FRACTION 30.30 High 3.00-15.90 [facility] Comment on above: Performed By: #### L 100.9950, L100.0100, L3100.1350, L503.6550, L503.0106, L503.6030, L500.4050 ####[facility] [address] [place], [place], [phone] RET-HE 27.7 pg Low 30-35 [facility] Comment on above: Performed By: #### L 100.9950, L100.0100, L3100.1350, L503.6550, L503.0106, L503.6030, L500.4050 ####[facility] [address] [place], [place], [phone]) Retic Count 2.47 High 0.5-1.5 [facility] Comment on above: Performed By: #### L 100.9950, L100.0100, L3100.1350, L503.6550, L503.0106, L503.6030, L500.4050 ####[facility] [address] [place], [address] Reticulocyte hemoglobin equi valent (RET-He) measurementOrdered By: Ric Noriega on 03-13-2025 Hemoglobin (Reticulocytes) [Entitic mass] 27.7 pg Low 30-35 [facility] Reticulocytes Auto (Bld) [#/ Vol]Ordered By: Ric Noriega on 03-13-2025 Reticulocytes/100 RBC (Bld) 2.47 % High 0.5-1.5 [facility] Serum creatinine measurement (mass/volume)Ordered By: Ric Noriega on 03-13-2025 Creatinine [Mass/Vol] 2.12 mg/dL High 0.70-1.20 [facility] Serum globulin measurementOr dered By: Ric Noriega on 03-13-2025 Globulin (S) [Mass/Vol] 3.3 g/dL 2.2-4.2 [facility] Serum glucose measurement (m ass/volume)Ordered By: Ric Noriega on 03-13-2025 Glucose [Mass/Vol] 139 mg/dL High 70-99 [facility] Serum or plasma alanine craven otransferase (ALT) measurementOrdered By: Ric Noriega on 03-13-2025 ALT [Catalytic activity/Vol] 16 U/L <35 [facility] Serum or plasma albumin bijan urement (mass/volume)Ordered By: Ric Noriega on 03-13-2025 Albumin [Mass/Vol] 4.0 g/dL 3.4-4.8 [facility] Serum or plasma albumin/glob ulin mass ratioOrdered By: Ric Noriega on 03-13-2025 Albumin/Globulin [Mass ratio] 1.2 {ratio} 0.9-2.4 [facility] Serum or plasma alkaline da sphatase measurementOrdered By: Ric Noriega on 03-13-2025 ALP [Catalytic activity/Vol] 136 U/L High 35-104 [facility] Serum or plasma calcium bijan urement (mass/volume)Ordered By: Ric Noriega on 03-13-2025 Calcium [Mass/Vol] 9.2 mg/dL 7.6-11.0 [facility] Serum or plasma erythropoiet in (EPO) measurement (units/volume)Ordered By: Ric Noriega on 03-13-2025 Erythropoietin (EPO) Qn 190.9 mIU/mL High 2.6-18.5 [facility] Serum or plasma ferritin austin surement (mass/volume)Ordered By: Ric Noriega on 03-13-2025 Ferritin [Mass/Vol] 48 ng/mL 22-378 [facility] Serum or plasma iron saturat ion measurement (mass fraction)Ordered By: Ric Noriega on 03-13-2025 Iron saturation [Mass fraction] 8.6 % Low 13-59 [facility] Serum or plasma urea nitroge n measurement (mass/volume)Ordered By: Ric Noriega on 03-13-2025 Urea nitrogen [Mass/Vol] 52 mg/dL High 4-19 [facility] Sodium levelOrdered By: Abi Noriega on 03-13-2025 Sodium [Moles/Vol] 132 mmol/L Low 133-145 [facility] Total proteinOrdered By: Ashwin Noriega on 03-13-2025 Protein [Mass/Vol] 7.3 g/dL 5.9-8.4 [facility] Vitamin B12on 03-13-2025 Cobalamin (Vitamin B12) [Mass/Vol] 1100 pg/mL High 180-914 [facility] Comment on above: Performed By: #### L 100.9950, L100.0100, L3100.1350, L503.6550, L503.0106, L503.6030, L500.4050 ####[facility] [address] [place], [place], [id number] Vitamin B12 ser/plasOrdered By: Ric Noriega on 03-13-2025 Cobalamin (Vitamin B12) [Mass/Vol] 1100 pg/mL High 180-914 [facility] White blood cell (WBC) count Ordered By: Ric Noriega on 03-13-2025 WBC (Bld) [#/Vol] 6.6 10*3/uL 4.4-11.0 [facility] Absolute lymphocyte countOrd ered By: Vincent Flores on 03-09-2025 Lymphocytes Auto (Unsp spec) [#/Vol] 2.06 10*3/uL 0.83-4.51 [facility] Anion gap in Serum or Plasma Ordered By: Vincent Flores on 03-09-2025 Anion gap [Moles/Vol] 13 mmol/L 5-15 [facility] Automated lymphocyte count a s percentage of total leukocytesOrdered By: Vincent Flores on 03-09-2025 Lymphocytes/100 WBC Auto (Unsp spec) 33.8 % [facility] BUN/creatinine ratioOrdered By: Vincent Flores on 03-09-2025 Urea nitrogen/Creatinine [Mass ratio] 27.6 mg/mg High 04-23 [facility] Basic Metabolic Profile (BMP )on 03-09-2025 BUN/CRE 27.6 RATIO High 04-23 [facility] Comment on above: Performed By: #### L 500.2500, L100.0100 ####[facility] [address] [place], [address] Calcium [Mass/Vol] 9.1 mg/dL Normal 7.6-11.0 [facility] Comment on above: Performed By: #### L 500.2500, L100.0100 ####[facility] [address] [place], [address] Chloride [Moles/Vol] 97 mmol/L Low 98-108 [facility] Comment on above: Performed By: #### L 500.2500, L100.0100 ####[facility] [address] [place], [address] CO2 [Moles/Vol] 21.7 mmol/L Normal 21.0-32.0 [facility] Comment on above: Performed By: #### L 500.2500, L100.0100 ####[facility] [address] [place], [address] Creatinine [Mass/Vol] 1.80 mg/dL High 0.70-1.20 [facility] Comment on above: Performed By: #### L 500.2500, L100.0100 ####[facility] [address] [place], [address] GAP 13 Normal 5-15 [facility] Comment on above: Performed By: #### L 500.2500, L100.0100 ####[facility] [address] [place], [address] GFR/1.73 sq M.predicted among non-blacks MDRD (S/P/Bld) [Vol rate/Area] 28 mL/min/{1.73_m2} Low >60 [facility] Comment on above: Result Comment: mL/m in/1.73m2 CKD-EPI Creatinine Equation (2020) Performed By: #### L 500.2500, L100.0100 ####[facility] [address] [place], [address] Glucose [Mass/Vol] 136 mg/dL High 70-99 [facility] Comment on above: Performed By: #### L 500.2500, L100.0100 ####[facility] [address] [place], [address] Potassium [Moles/Vol] 5.0 mmol/L Normal 3.3-5.1 [facility] Comment on above: Performed By: #### L 500.2500, L100.0100 ####[facility] [address] [place], [address] Sodium [Moles/Vol] 131 mmol/L Low 133-145 [facility] Comment on above: Performed By: #### L 500.2500, L100.0100 ####[facility] [address] [place], [address] Urea nitrogen [Mass/Vol] 50 mg/dL High 4-19 [facility] Comment on above: Performed By: #### L 500.2500, L100.0100 ####[facility] [address] [place], [place], [id number] Basophil percentageOrdered B y: Vincent Petersok on 03-09-2025 Basophils/100 WBC (Bld) 1.0 % 0-1 [facility] Blood manual differential co mment interpretation (narrative result)Ordered By: Vincent Flores on 03-09-2025 Manual differential comment Cristhian (Bld) [Interp] SCANNED [facility] CBC W/Diff, Automatedon Anisocytosis Ql (Bld) 2+ Normal [facility] Comment on above: Performed By: #### L 500.2500, L100.0100 ####[facility] [address] [place], [place], [id number] REACTIVE LYMPH 1+ Normal [facility] Comment on above: Performed By: #### L 500.2500, L100.0100 ####[facility] [address] [place], [place], [phone] SMEAR COMMENT SCANNED Normal [facility] Comment on above: Performed By: #### L 500.2500, L100.0100 ####[facility] [address] [place], [place], [id number] Carbon dioxide, total [Moles /volume] in Central venous bloodOrdered By: Vincent Flores on 03-09-2025 CO2 [Moles/Vol] 21.7 mmol/L 21.0-32.0 [facility] Chloride assayOrdered By: Ishmael Flores on 03-09-2025 Chloride [Moles/Vol] 97 mmol/L Low 98-108 [facility] Eosinophil percentageOrdered By: Vincent Flores on 03-09-2025 Eosinophils/100 WBC (Bld) 1.6 % 0-5 [facility] Erythrocyte distribution wid th ratioOrdered By: Vincent Flores on 03-09-2025 Erythrocyte distribution width (RBC) [Ratio] 24.9 % High 11.6-14.6 [facility] Erythrocyte distribution wid th standard deviationOrdered By: Vincent Flores on 03-09-2025 Erythrocyte distribution width (RBC) [Ratio] 81.9 fl High 35.1-43.9 [facility] Glomerular filtration rate ( GFR) estimation/1.73 sq m using serum, plasma, or whole bOrdered By: Vincent Flores on 03-09-2025 GFR/1.73 sq M.predicted among non-blacks MDRD (S/P/Bld) [Vol rate/Area] 28 mL/min/{1.73_m2} Low >60 [facility] Hematocrit Auto (Bld) [Volum e fraction]Ordered By: Vincent Flores on 03-09-2025 Hematocrit (Bld) [Volume fraction] 28.3 % Low 37-47 [facility] Hemoglobin measurementOrdere d By: Vincent Flores on 03-09-2025 Hemoglobin (Bld) [Mass/Vol] 8.9 g/dL Low 12.0-15.0 [facility] Immature granulocytes/100 WB C Auto (Bld)Ordered By: Vincent Flores on 03-09-2025 Immature granulocytes/100 WBC (Bld) 0.500 % 0.0-0.9 [facility] MCV (mean corpuscular volume ) determinationOrdered By: Vincent Flores on 03-09-2025 MCV (RBC) [Entitic vol] 89.3 fL 81-99 [facility] Mean corpuscular hemoglobin (MCH) determinationOrdered By: Vincent Flores 03-09-2025 MCH (RBC) [Entitic mass] 28.1 pg 27.0-32.0 [facility] Monocyte percentageOrdered B y: Vincent Flores on 03-09-2025 Monocytes/100 WBC (Bld) 16.2 % High 0-10 [facility] Neutrophil percentageOrdered By: Vincent Flores on 03-09-2025 Neutrophils/100 WBC (Bld) 46.9 % Low 47-70 [facility] No Panel InformationOrdered By: Vincent Flores on 03-09-2025 2+ [facility] Platelet countOrdered By: Ishmael Flores on 03-09-2025 Platelets (Bld) [#/Vol] 191 10*3/uL 150-450 [facility] Potassium measurement (mass/ volume)Ordered By: Vincent Flores on 03-09-2025 Potassium (Unsp spec) [Mass/Vol] 5.0 mmol/L 3.3-5.1 [facility] RBC Auto (Bld) [#/Vol]Ordere d By: Vincent Flores on 03-09-2025 RBC (Bld) [#/Vol] 3.17 10*6/uL Low 4.2-5.4 [facility] Serum creatinine measurement (mass/volume)Ordered By: Vincent Flores on 03-09-2025 Creatinine [Mass/Vol] 1.80 mg/dL High 0.70-1.20 [facility] Serum glucose measurement (m ass/volume)Ordered By: Vincent Flores on 03-09-2025 Glucose [Mass/Vol] 136 mg/dL High 70-99 [facility] Serum or plasma calcium bijan urement (mass/volume)Ordered By: Vincent Flores on 03-09-2025 Calcium [Mass/Vol] 9.1 mg/dL 7.6-11.0 [facility] Serum or plasma urea nitroge n measurement (mass/volume)Ordered By: Vincent Flores on 03-09-2025 Urea nitrogen [Mass/Vol] 50 mg/dL High 4-19 [facility] Sodium levelOrdered By: Vincent Flores on 03-09-2025 Sodium [Moles/Vol] 131 mmol/L Low 133-145 [facility] White blood cell (WBC) count Ordered By: Vincent Flores on 03-09-2025 WBC (Bld) [#/Vol] 6.1 10*3/uL 4.4-11.0 [facility] Anion gap in Serum or Plasma Ordered By: Vincent Flores on 03-02-2025 Anion gap [Moles/Vol] 14 mmol/L 11-16 [facility] BUN/creatinine ratioOrdered By: Vincent Flores on 03-02-2025 Urea nitrogen/Creatinine [Mass ratio] 45.3 mg/mg High 04-23 [facility] Basic Metabolic Profile (BMP )on 03-02-2025 BUN/CRE 45.3 RATIO High 04-23 [facility] Comment on above: Performed By: #### L 500.2500 ####[facility] [address] [place], [address] GAP 14 Normal 11-16 [facility] Comment on above: Performed By: #### L 500.2500 ####[facility] [address] [place], [address] Potassium [Moles/Vol] 4.2 mmol/L Normal 3.3-5.1 [facility] Comment on above: Performed By: #### L 500.2500 ####[facility] [address] [place], [address] Carbon dioxide, total [Moles /volume] in Central venous bloodOrdered By: Vincent Flores on 03-02-2025 CO2 [Moles/Vol] 25.2 mmol/L Normal 21.0-32.0 [facility] Comment on above: Performed By: #### L 500.2500 ####[facility] [address] [place], [address] Chloride assayOrdered By: Ishmael Flores on 03-02-2025 Chloride [Moles/Vol] 94 mmol/L Low 98-108 [facility] Comment on above: Performed By: #### L 500.2500 ####[facility] [address] [place], [address] Glomerular filtration rate ( GFR) estimation/1.73 sq m using serum, plasma, or whole bOrdered By: Vincent Flores on 03-02-2025 GFR/1.73 sq M.predicted among non-blacks MDRD (S/P/Bld) [Vol rate/Area] 28 mL/min/{1.73_m2} Low >60 [facility] Comment on above: Result Comment: mL/m in/1.73m2 CKD-EPI Creatinine Equation (2020) Performed By: #### L 500.2500 ####[facility] [address] [place], [address] Potassium measurement (mass/ volume)Ordered By: Vincent Flores on 03-02-2025 Potassium (Unsp spec) [Mass/Vol] 4.2 mmol/L 3.3-5.1 [facility] Serum creatinine measurement (mass/volume)Ordered By: Vincent Flores on 03-02-2025 Creatinine [Mass/Vol] 1.79 mg/dL High 0.70-1.20 [facility] Comment on above: Performed By: #### L 500.2500 ####[facility] [address] [place], [address] Serum glucose measurement (m ass/volume)Ordered By: Vincent Flores on 03-02-2025 Glucose [Mass/Vol] 193 mg/dL High 70-99 [facility] Comment on above: Performed By: #### L 500.2500 ####[facility] [address] [place], [address] Serum or plasma calcium bijan urement (mass/volume)Ordered By: Vincent Flores on 03-02-2025 Calcium [Mass/Vol] 9.4 mg/dL Normal 7.6-11.0 [facility] Comment on above: Performed By: #### L 500.2500 ####[facility] [address] [place], [address] Serum or plasma urea nitroge n measurement (mass/volume)Ordered By: Vincent Flores on 03-02-2025 Urea nitrogen [Mass/Vol] 81 mg/dL High 4-19 [facility] Comment on above: Performed By: #### L 500.2500 ####[facility] [address] [place], [address] Sodium levelOrdered By: Vincent Flores on 03-02-2025 Sodium [Moles/Vol] 133 mmol/L Normal 133-145 [facility] Comment on above: Performed By: #### L 500.2500 ####[facility] [address] [place], [address] Urine Cultureon 03-02-2025 URC Normal [facility] Comment on above: Performed By: #### L 500.4050, L503.7505, L501.9520, L400.0001, L100.0100, M100.2200 ####[facility] [address] [place], [place], [id number] Wound Ctr History AND Physic apollo 03-01-2025 Wound Ctr History & Physical Normal [facility] Absolute lymphocyte countOrd ered By: Vincent Petersok on 02-27-2025 Lymphocytes Auto (Unsp spec) [#/Vol] 1.36 10*3/uL 0.83-4.51 [facility] Anion gap in Serum or Plasma Ordered By: Vincent Flores on 02-27-2025 Anion gap [Moles/Vol] 18 mmol/L High 5-15 [facility] Automated lymphocyte count a s percentage of total leukocytesOrdered By: Vincent Flores on 02-27-2025 Lymphocytes/100 WBC Auto (Unsp spec) 19.4 % 19-41 [facility] BUN/creatinine ratioOrdered By: Vincent Flores on 02-27-2025 Urea nitrogen/Creatinine [Mass ratio] 56.8 mg/mg High 10-20 [facility] Basophil percentageOrdered B y: Vincent Flores on 02-27-2025 Basophils/100 WBC (Bld) 0.7 % 0-1 [facility] Bilirubin Test strip Ql (U)O rdered By: Vincent Flores on 02-27-2025 Bilirubin Ql (U) Negative Negative [facility] Bilirubin, totalOrdered By: Vincent Flores on 02-27-2025 Bilirubin [Mass/Vol] 1.42 mg/dL High 0.00-1.30 [facility] Comment on above: Performed By: #### L 500.4050, L503.7505, L501.9520, L400.0001, L100.0100, M100.2200 ####[facility] [address] [place], [place], [id number] Blood manual differential co mment interpretation (narrative result)Ordered By: Vincent Flores on 02-27-2025 Manual differential comment Cristhian (Bld) [Interp] SCANNED [facility] Blood polychromasia detectio n by light microscopyOrdered By: Vincent Flores on 02-27-2025 Polychromasia LM Ql (Bld) RARE [facility] CBC W/Diff, Automatedon 02-03 Anisocytosis Ql (Bld) 2+ Normal [facility] Comment on above: Performed By: #### L 500.4050, L503.7505, L501.9520, L400.0001, L100.0100, M100.2200 ####[facility] [address] [place], [address] POLYCHROMASIA RARE Normal [facility] Comment on above: Performed By: #### L 500.4050, L503.7505, L501.9520, L400.0001, L100.0100, M100.2200 ####[facility] [address] [place], [address] SMEAR COMMENT SCANNED Normal [facility] Comment on above: Performed By: #### L 500.4050, L503.7505, L501.9520, L400.0001, L100.0100, M100.2200 ####[facility] [address] [place], [address] Carbon dioxide, total [Moles /volume] in Central venous bloodOrdered By: Vincent Flores on 02-27-2025 CO2 [Moles/Vol] 25.4 mmol/L Normal 21.0-32.0 [facility] Comment on above: Performed By: #### L 500.4050, L503.7505, L501.9520, L400.0001, L100.0100, M100.2200 ####[facility] [address] [place], [address] Chloride assayOrdered By: Ishmael Flores on 02-27-2025 Chloride [Moles/Vol] 90 mmol/L Low 98-108 [facility] Comment on above: Performed By: #### L 500.4050, L503.7505, L501.9520, L400.0001, L100.0100, M100.2200 ####[facility] [address] [place], [address] Comprehensive Metabolic Prof ilon 02-27-2025 ALK PHOS 123 U/L High 35-104 [facility] Comment on above: Performed By: #### L 500.4050, L503.7505, L501.9520, L400.0001, L100.0100, M100.2200 ####[facility] [address] [place], [address] AST [Catalytic activity/Vol] 50 U/L High <=31 [facility] Comment on above: Performed By: #### L 500.4050, L503.7505, L501.9520, L400.0001, L100.0100, M100.2200 ####[facility] [address] [place], [address] BUN/CRE 56.8 RATIO High 10-20 [facility] Comment on above: Performed By: #### L 500.4050, L503.7505, L501.9520, L400.0001, L100.0100, M100.2200 ####[facility] [address] [place], [address] GAP 18 High 5-15 [facility] Comment on above: Performed By: #### L 500.4050, L503.7505, L501.9520, L400.0001, L100.0100, M100.2200 ####[facility] [address] [place], [address] Potassium [Moles/Vol] 3.6 mmol/L Normal 3.3-5.1 [facility] Comment on above: Performed By: #### L 500.4050, L503.7505, L501.9520, L400.0001, L100.0100, M100.2200 ####[facility] [address] [place], [address] T PROT 7.5 g/dL Normal 5.9-8.4 [facility] Comment on above: Performed By: #### L 500.4050, L503.7505, L501.9520, L400.0001, L100.0100, M100.2200 ####[facility] [address] [place], [place], [id number] Eosinophil percentageOrdered By: Vincent Mark on 02-27-2025 Eosinophils/100 WBC (Bld) 1.0 % 0-5 [facility] Erythrocyte distribution wid th ratioOrdered By: [facility] on 02-27-2025 Erythrocyte distribution width (RBC) [Ratio] 24.3 % High 11.6-14.6 [facility] Erythrocyte distribution wid th standard deviationOrdered By: [facility] on 02-27-2025 Erythrocyte distribution width (RBC) [Ratio] 76.4 fl High 35.1-43.9 [facility] Glomerular filtration rate ( GFR) estimation/1.73 sq m using serum, plasma, or whole bOrdered By: [facility] 02-27-20[facility] GFR/1.73 sq M.predicted among non-blacks MDRD (S/P/Bld) [Vol rate/Area] 27 mL/min/{1.73_m2} Low >60 [facility] Comment on above: Result Comment: mL/m in/1.73m2 CKD-EPI Creatinine Equation (2020) Performed By: #### L 500.4050, L503.7505, L501.9520, L400.0001, L100.0100, M100.2200 ####[facility] [address] [place], [place], [id number] Hematocrit Auto (Bld) [Volum e fraction]Ordered By: Vincent Flores on 02-27-2025 Hematocrit (Bld) [Volume fraction] 26.0 % Low 37-47 [facility] Hemoglobin measurementOrdere d By: Vincent Flores 02-27-2025 Hemoglobin (Bld) [Mass/Vol] 8.4 g/dL Low 12.0-15.0 [facility] Immature granulocytes/100 WB C Auto (Bld)Ordered By: Vincent Flores on 02-27-2025 Immature granulocytes/100 WBC (Bld) 0.300 % 0.0-0.9 [facility] Ketones Test strip Ql (U)Ord ered By: Vincent Flores on 02-27-2025 Ketones Ql (U) Negative Negative [facility] MCV (mean corpuscular volume ) determinationOrdered By: Vincent Flores on 02-27-2025 MCV (RBC) [Entitic vol] 87.5 fL 81-99 [facility] Mean corpuscular hemoglobin (MCH) determinationOrdered By: Vincent Flores on 02-27-2025 MCH (RBC) [Entitic mass] 28.3 pg 27.0-32.0 [facility] Monocyte percentageOrdered B y: Vincent Flores on 02-27-2025 Monocytes/100 WBC (Bld) 11.7 % High 0-10 [facility] Mucus LM Ql (Urine sed)Order ed By: Vincent Flores on 02-27-2025 Mucus Ql (Urine sed) 0 SEEN /hpf [facility] Natriuretic peptide.B prohor daria N-Terminal [Mass/volume] in Serum or PlasmaOrdered By: Vincent Flores on 02-27-2025 Natriuretic peptide.B prohormone N-Terminal [Mass/Vol] 9003 pg/mL High <1800 [facility] Neutrophil percentageOrdered By: Vincent Flores on 02-27-2025 Neutrophils/100 WBC (Bld) 66.9 % 47-70 [facility] Nitrite Test strip Ql (U)Ord ered By: Vincent Flores on 02-27-2025 Nitrite Ql (U) Negative Negative [facility] No Panel InformationOrdered By: Vincent Flores on 02-27-2025 2+ [facility] 50 U/L High <32 [facility] Platelet countOrdered By: Ishmael Flores on 02-27-2025 Platelets (Bld) [#/Vol] 181 10*3/uL 150-450 [facility] Potassium measurement (mass/ volume)Ordered By: Vincent Flores on 02-27-2025 Potassium (Unsp spec) [Mass/Vol] 3.6 mmol/L 3.3-5.1 [facility] Pro- Brain NATRIURETIC PEPTI Drew 08-26-2025 Natriuretic peptide B (Bld) [Mass/Vol] 9003 pg/mL High <=1800 [facility] Comment on above: Result Comment: Hear t Failure Unlikely: < 300 pg/mLHeart Failure Likely< 50 Years: > 450 pg/mL50-75 Years: > 900 pg/mL>75 Years: > 1800 pg/mL Performed By: #### L 500.4050, L503.7505, L501.9520, L400.0001, L100.0100, M100.2200 ####[facility] [address] [place], [place], [address] Protein Test strip Ql (U)Ord ered By: Vincent Flores on 02-27-2025 Protein Ql (U) 30 mg/dl High Negative [facility] RBC Auto (Bld) [#/Vol]Ordere d By: Vincent Flores on 02-27-2025 RBC (Bld) [#/Vol] 2.97 10*6/uL Low 4.2-5.4 [facility] Serum creatinine measurement (mass/volume)Ordered By: Vincent Flores on 02-27-2025 Creatinine [Mass/Vol] 1.90 mg/dL High 0.70-1.20 [facility] Comment on above: Performed By: #### L 500.4050, L503.7505, L501.9520, L400.0001, L100.0100, M100.2200 ####[facility] [address] [place], [place], [id number] Serum globulin measurementOr dered By: Vincent Flores on 02-27-2025 Globulin (S) [Mass/Vol] 3.4 g/dL Normal 2.2-4.2 [facility] Comment on above: Performed By: #### L 500.4050, L503.7505, L501.9520, L400.0001, L100.0100, M100.2200 ####[facility] [address] [place], [address] Serum glucose measurement (m ass/volume)Ordered By: Vincent Flores on 02-27-2025 Glucose [Mass/Vol] 290 mg/dL High 70-99 [facility] Comment on above: Performed By: #### L 500.4050, L503.7505, L501.9520, L400.0001, L100.0100, M100.2200 ####[facility] [address] [place], [address] Serum or plasma alanine craven otransferase (ALT) measurementOrdered By: Vincent Flores on 02-27-2025 ALT [Catalytic activity/Vol] 33 U/L Normal <=34 [facility] Comment on above: Performed By: #### L 500.4050, L503.7505, L501.9520, L400.0001, L100.0100, M100.2200 ####[facility] [address] [place], [address] Serum or plasma albumin bijan urement (mass/volume)Ordered By: Vincent Flores on 02-27-2025 Albumin [Mass/Vol] 4.1 g/dL Normal 3.4-4.8 [facility] Comment on above: Performed By: #### L 500.4050, L503.7505, L501.9520, L400.0001, L100.0100, M100.2200 ####[facility] [address] [place], [address] Serum or plasma albumin/glob ulin mass ratioOrdered By: Vincent Flores on 02-27-2025 Albumin/Globulin [Mass ratio] 1.2 {ratio} Normal 0.9-2.4 [facility] Comment on above: Performed By: #### L 500.4050, L503.7505, L501.9520, L400.0001, L100.0100, M100.2200 ####[facility] [address] [place], [address] Serum or plasma alkaline da sphatase measurementOrdered By: Vincent Flores on 02-27-2025 ALP [Catalytic activity/Vol] 123 U/L High 35-104 [facility] Serum or plasma calcium bijan urement (mass/volume)Ordered By: Vincent Flores on 02-27-2025 Calcium [Mass/Vol] 9.9 mg/dL Normal 7.6-11.0 [facility] Comment on above: Performed By: #### L 500.4050, L503.7505, L501.9520, L400.0001, L100.0100, M100.2200 ####[facility] [address] [place], [address] Serum or plasma urea nitroge n measurement (mass/volume)Ordered By: Vincent Flores on 02-27-2025 Urea nitrogen [Mass/Vol] 108 mg/dL Invalid Interpretation Code 10-21 [facility] Comment on above: Result Comment: Crit ical Result(s) Called at: by: DR. FLORES??Results readback by same. Performed By: #### L 500.4050, L503.7505, L501.9520, L400.0001, L100.0100, M100.2200 ####[facility] [address] [place], [place], [id number] Sodium levelOrdered By: Vincent Flores on 02-27-2025 Sodium [Moles/Vol] 134 mmol/L Normal 133-145 [facility] Comment on above: Performed By: #### L 500.4050, L503.7505, L501.9520, L400.0001, L100.0100, M100.2200 ####[facility] [address] [place], [address] Squamous epithelial cells de tection in urine sediment by light microscopyOrdered By: Vincent Flores on 02-27-2025 Epithelial cells.squamous LM Ql (Urine sed) 0 SEEN /hpf 5-10 [facility] TSH DL <= 0.005 mIU/L QnOrde red By: Vincent Flores on 02-27-2025 TSH Qn 3.010 uIU/mL 0.300-4.200 [facility] Thyroid Stim Hormone (TSH)on 02-27-2025 TSH 3.010 uIU/mL Normal 0.300-4.200 [facility] Comment on above: Performed By: #### L 500.4050, L503.7505, L501.9520, L400.0001, L100.0100, M100.2200 ####[facility] [address] [place], [address] Total proteinOrdered By: Vincent Flores on 02-27-2025 Protein [Mass/Vol] 7.5 g/dL 5.9-8.4 [facility] Urinalysis, Completeon 02-27 EPI,RENAL 0-5 SEEN Normal 0-5 [facility] Comment on above: Order Comment: Urine , Random Performed By: #### L 500.4050, L503.7505, L501.9520, L400.0001, L100.0100, M100.2200 ####[facility] [address] [place], [address] BACTERIA 0 SEEN Normal None Seen [facility] Comment on above: Order Comment: Urine , Random Performed By: #### L 500.4050, L503.7505, L501.9520, L400.0001, L100.0100, M100.2200 ####[facility] [address] [place], [address] EPI,SQUAMOUS 0 SEEN Normal 5-10 [facility] Comment on above: Order Comment: Urine , Random Performed By: #### L 500.4050, L503.7505, L501.9520, L400.0001, L100.0100, M100.2200 ####[facility] [address] [place], [address] Mucus Ql (Urine sed) 0 SEEN Normal [facility] Comment on above: Order Comment: Urine , Random Performed By: #### L 500.4050, L503.7505, L501.9520, L400.0001, L100.0100, M100.2200 ####[facility] [address] [place], [address] RBC 0 SEEN Normal 0-5 [facility] Comment on above: Order Comment: Urine , Random Performed By: #### L 500.4050, L503.7505, L501.9520, L400.0001, L100.0100, M100.2200 ####[facility] [address] [place], [address] WBC 0 SEEN Normal 0-5 [facility] Comment on above: Order Comment: Urine , Random Performed By: #### L 500.4050, L503.7505, L501.9520, L400.0001, L100.0100, M100.2200 ####[facility] [address] [place], [address] Urine clarityOrdered By: Vincent Flores on 02-27-2025 Clarity (U) Sl. Cloudy Clear [facility] Urine color determinationOrd ered By: Vincent Flores on 02-27-2025 Color (U) Yellow Yellow [facility] Urine cultureOrdered By: Vincent Flores on 02-27-2025 Bacteria identified Cx Nom (U) ESBL Escherichia coli Abnormal [facility] Bacteria identified Cx Nom (U) ESBL Escherichia coli Abnormal [facility] Urine glucose detectionOrder ed By: Vincent Flores on 02-27-2025 Glucose Ql (U) Normal mg/dl Normal [facility] Urine leukocyte esterase det ection by dipstickOrdered By: Vincent Flores on 02-27-2025 Leukocyte esterase Test strip Ql (U) Negative Negative [facility] Urine pHOrdered By: Vincent Flores on 02-27-2025 pH (U) 6.5 [pH] 5.0 - 8.0 [facility] Urine sediment bacteria coun t by microscopy (number/high power field)Ordered By: Vincent Flores on 02-27-2025 Bacteria LM.HPF (Urine sed) [#/Area] 0 /[HPF] None Seen [facility] Urine sediment renal epithel ial cell count by microscopy (number/high power field)Ordered By: Vincent Flores on 02-27-2025 Epithelial cells.renal LM.HPF (Urine sed) [#/Area] 0 /[HPF] 0-5 [facility] Urine specific gravity measu rementOrdered By: Vincent Flores on 02-27-2025 Specific gravity (U) [Rel density] 1.010 1.002-1.030 [facility] Urine urobilinogen measureme ntOrdered By: Vincent Flores on 02-27-2025 Urobilinogen Ql (U) Normal mg/dl Normal [facility] White blood cell (WBC) count Ordered By: Vincent Flores on 02-27-2025 WBC (Bld) [#/Vol] 7.0 10*3/uL 4.4-11.0 [facility] White blood cell countOrdere d By: Vincent Flores on 02-27-2025 White blood cell count 0 SEEN /hpf 0-5 [facility] Absolute lymphocyte countOrd ered By: Vincent Flores on 02-21-2025 Lymphocytes Auto (Unsp spec) [#/Vol] 1.96 10*3/uL 0.83-4.51 [facility] Anion gap in Serum or Plasma Ordered By: Vincent Flores on 02-21-2025 Anion gap [Moles/Vol] 18 mmol/L High 5-15 [facility] Automated lymphocyte count a s percentage of total leukocytesOrdered By: Vincent Flores on 02-21-2025 Lymphocytes/100 WBC Auto (Unsp spec) 27.8 % 19-41 [facility] BUN/creatinine ratioOrdered By: Vincent Flores on 02-21-2025 Urea nitrogen/Creatinine [Mass ratio] 44.3 mg/mg High 04-23 [facility] Basic Metabolic Profile (BMP )on 02-21-2025 BUN/CRE 44.3 RATIO High 04-23 [facility] Comment on above: Performed By: #### L 500.2500, L503.7505, L100.0100 ####[facility] [address] [place], [address] Calcium [Mass/Vol] 9.6 mg/dL Normal 7.6-11.0 [facility] Comment on above: Performed By: #### L 500.2500, L503.7505, L100.0100 ####[facility] [address] [place], [address] Chloride [Moles/Vol] 89 mmol/L Low 98-108 [facility] Comment on above: Performed By: #### L 500.2500, L503.7505, L100.0100 ####[facility] [address] [place], [address] CO2 [Moles/Vol] 26.5 mmol/L Normal 21.0-32.0 [facility] Comment on above: Performed By: #### L 500.2500, L503.7505, L100.0100 ####[facility] [address] [place], [address] Creatinine [Mass/Vol] 1.98 mg/dL High 0.70-1.20 [facility] Comment on above: Performed By: #### L 500.2500, L503.7505, L100.0100 ####[facility] [address] [place], [address] GAP 18 High 5-15 [facility] Comment on above: Performed By: #### L 500.2500, L503.7505, L100.0100 ####[facility] [address] [place], [address] GFR/1.73 sq M.predicted among non-blacks MDRD (S/P/Bld) [Vol rate/Area] 25 mL/min/{1.73_m2} Low >60 [facility] Comment on above: Result Comment: mL/m in/1.73m2 CKD-EPI Creatinine Equation (2020) Performed By: #### L 500.2500, L503.7505, L100.0100 ####[facility] [address] [place], [address] Glucose [Mass/Vol] 118 mg/dL High 70-99 [facility] Comment on above: Performed By: #### L 500.2500, L503.7505, L100.0100 ####[facility] [address] [place], [address] Potassium [Moles/Vol] 3.2 mmol/L Low 3.3-5.1 [facility] Comment on above: Performed By: #### L 500.2500, L503.7505, L100.0100 ####[facility] [address] [place], [address] Sodium [Moles/Vol] 133 mmol/L Normal 133-145 [facility] Comment on above: Performed By: #### L 500.2500, L503.7505, L100.0100 ####[facility] [address] [place], [address] Urea nitrogen [Mass/Vol] 88 mg/dL High 4-19 [facility] Comment on above: Performed By: #### L 500.2500, L503.7505, L100.0100 ####[facility] [address] [place], [address] Basophil percentageOrdered B y: Vincent Flores on 02-21-2025 Basophils/100 WBC (Bld) 0.8 % 0-1 [facility] Blood manual differential co mment interpretation (narrative result)Ordered By: Vincent Flores on 02-21-2025 Manual differential comment Cristhian (Bld) [Interp] SCANNED [facility] Blood polychromasia detectio n by light microscopyOrdered By: Vincent Flores on 02-21-2025 Polychromasia LM Ql (Bld) 1+ [facility] CBC W/Diff, Automatedon 02-03 HYPOCHROMASIA 1+ Normal [facility] Comment on above: Performed By: #### L 500.2500, L503.7505, L100.0100 ####[facility] [address] [place], [address] Anisocytosis Ql (Bld) 2+ Normal [facility] Comment on above: Performed By: #### L 500.2500, L503.7505, L100.0100 ####[facility] [address] [place], [address] PLT EST ADEQUATE Normal ADEQ [facility] Comment on above: Performed By: #### L 500.2500, L503.7505, L100.0100 ####[facility] [address] [place], [address] POLYCHROMASIA 1+ Normal [facility] Comment on above: Performed By: #### L 500.2500, L503.7505, L100.0100 ####[facility] [address] [place], [address] SMEAR COMMENT SCANNED Normal [facility] Comment on above: Performed By: #### L 500.2500, L503.7505, L100.0100 ####[facility] [address] [place], [address] Carbon dioxide, total [Moles /volume] in Central venous bloodOrdered By: Vincent Flores on 02-21-2025 CO2 [Moles/Vol] 26.5 mmol/L 21.0-32.0 [facility] Chloride assayOrdered By: Ishmael Flores on 02-21-2025 Chloride [Moles/Vol] 89 mmol/L Low 98-108 [facility] Eosinophil percentageOrdered By: Vincent Flores on 02-21-2025 Eosinophils/100 WBC (Bld) 1.4 % 0-5 [facility] Erythrocyte distribution wid th ratioOrdered By: Vincent Flores on 02-21-2025 Erythrocyte distribution width (RBC) [Ratio] 23.6 % High 11.6-14.6 [facility] Erythrocyte distribution wid th standard deviationOrdered By: Vincent Flores on 02-21-2025 Erythrocyte distribution width (RBC) [Ratio] 73.1 fl High 35.1-43.9 [facility] Glomerular filtration rate ( GFR) estimation/1.73 sq m using serum, plasma, or whole bOrdered By: Vincent Flores on 02-21-2025 GFR/1.73 sq M.predicted among non-blacks MDRD (S/P/Bld) [Vol rate/Area] 25 mL/min/{1.73_m2} Low >60 [facility] Hematocrit Auto (Bld) [Volum e fraction]Ordered By: Vincent Flores on 02-21-2025 Hematocrit (Bld) [Volume fraction] 31.5 % Low 37-47 [facility] Hemoglobin measurementOrdere d By: Vincent Flores on 02-21-2025 Hemoglobin (Bld) [Mass/Vol] 10.1 g/dL Low 12.0-15.0 [facility] Hypochromatic red blood cell detectionOrdered By: Vincent Flores on 02-21-2025 Hypochromia Ql (Bld) 1+ [facility] Immature granulocytes/100 WB C Auto (Bld)Ordered By: Vincent Flores 02-21-2025 Immature granulocytes/100 WBC (Bld) 0.300 % 0.0-0.9 [facility] MCV (mean corpuscular volume ) determinationOrdered By: Vincent Flores 02-21-2025 MCV (RBC) [Entitic vol] 86.3 fL 81-99 [facility] Mean corpuscular hemoglobin (MCH) determinationOrdered By: Vincent Flores 02-21-2025 MCH (RBC) [Entitic mass] 27.7 pg 27.0-32.0 [facility] Monocyte percentageOrdered B y: Vincent Flores on 02-21-2025 Monocytes/100 WBC (Bld) 14.3 % High 0-10 [facility] Natriuretic peptide.B prohor daria N-Terminal [Mass/volume] in Serum or PlasmaOrdered By: Vincent Flores 02-21-2025 Natriuretic peptide.B prohormone N-Terminal [Mass/Vol] 24329 pg/mL High <1800 [facility] Neutrophil percentageOrdered By: Vincent Flores on 02-21-2025 Neutrophils/100 WBC (Bld) 55.4 % 47-70 [facility] No Panel InformationOrdered By: Vincent Flores 02-21-2025 2+ [facility] Platelet countOrdered By: Ishmael Flores on 02-21-2025 Platelets (Bld) [#/Vol] 170 10*3/uL 150-450 [facility] Platelet estimateOrdered By: Vincent Flores on 02-21-2025 Platelets LM Ql (Bld) ADEQUATE ADEQ [facility] Potassium measurement (mass/ volume)Ordered By: Vincent Flores on 02-21-2025 Potassium (Unsp spec) [Mass/Vol] 3.2 mmol/L Low 3.3-5.1 [facility] Pro- Brain NATRIURETIC PEPTI Drew 02-21-2025 Natriuretic peptide B (Bld) [Mass/Vol] 31470 pg/mL High <=1800 [facility] Comment on above: Result Comment: Hear t Failure Unlikely: < 300 pg/mLHeart Failure Likely< 50 Years: > 450 pg/mL50-75 Years: > 900 pg/mL>75 Years: > 1800 pg/mL Performed By: #### L 500.2500, L503.7505, L100.0100 ####[facility] [address] [facility] [place], [address] RBC Auto (Bld) [#/Vol]Ordere d By: Vincent Flores on 02-21-2025 RBC (Bld) [#/Vol] 3.65 10*6/uL Low 4.2-5.4 [facility] Serum creatinine measurement (mass/volume)Ordered By: Vincent Flores on 02-21-2025 Creatinine [Mass/Vol] 1.98 mg/dL High 0.70-1.20 [facility] Serum glucose measurement (m ass/volume)Ordered By: Vincent Flores on 02-21-2025 Glucose [Mass/Vol] 118 mg/dL High 70-99 [facility] Serum or plasma calcium bijan urement (mass/volume)Ordered By: Vincent Flores on 02-21-2025 Calcium [Mass/Vol] 9.6 mg/dL 7.6-11.0 [facility] Serum or plasma urea nitroge n measurement (mass/volume)Ordered By: Vincent Flores on 02-21-2025 Urea nitrogen [Mass/Vol] 88 mg/dL High 4-19 [facility] Sodium levelOrdered By: Vincent Flores on 02-21-2025 Sodium [Moles/Vol] 133 mmol/L 133-145 [facility] White blood cell (WBC) count Ordered By: Vincent Flores on 02-21-2025 WBC (Bld) [#/Vol] 7.1 10*3/uL 4.4-11.0 [facility] 12 Lead EKGon 02-16-2025 12 Lead EKG Normal [facility] Absolute lymphocyte countOrd ered By: Magdy Pang on 02-16-2025 Lymphocytes Auto (Unsp spec) [#/Vol] 1.41 10*3/uL 0.83-4.51 [facility] Absolute neutrophil countOrd ered By: Magdy Pang on 02-16-2025 Neutrophils (Bld) [#/Vol] 3.7 10*3/uL 2.0-7.7 [facility] Anion gap in Serum or Plasma Ordered By: Magdy Pang on 02-16-2025 Anion gap [Moles/Vol] 15 mmol/L 11-16 [facility] Automated lymphocyte count a s percentage of total leukocytesOrdered By: Magdy Pang on 02-16-2025 Lymphocytes/100 WBC Auto (Unsp spec) 23.2 % [facility] BUN/creatinine ratioOrdered By: Magdy Pang on 02-16-2025 Urea nitrogen/Creatinine [Mass ratio] 33.4 mg/mg High 04-23 [facility] Basic Metabolic Profile (BMP )on 02-16-2025 BUN/CRE 33.4 RATIO [facility] 04-23 [facility] Comment on above: Performed By: #### L 500.2500, L503.7505, L100.0100, L501.4021 ####[facility] [address] [place], [address] Calcium [Mass/Vol] 9.5 mg/dL Normal 7.6-11.0 [facility] Comment on above: Performed By: #### L 500.2500, L503.7505, L100.0100, L501.4021 ####[facility] [address] [place], [address] Chloride [Moles/Vol] 92 mmol/L Low 98-108 [facility] Comment on above: Performed By: #### L 500.2500, L503.7505, L100.0100, L501.4021 ####[facility] [address] [place], [address] CO2 [Moles/Vol] 23.9 mmol/L Normal 21.0-32.0 [facility] Comment on above: Performed By: #### L 500.2500, L503.7505, L100.0100, L501.4021 ####[facility] [address] [place], [address] Creatinine [Mass/Vol] 2.04 mg/dL High 0.70-1.20 [facility] Comment on above: Performed By: #### L 500.2500, L503.7505, L100.0100, L501.4021 ####[facility] [address] [place], [address] ECRCL 20.45 ml/min Low 50-250 [facility] Comment on above: Performed By: #### L 500.2500, L503.7505, L100.0100, L501.4021 ####[facility] [address] [place], [address] GAP 15 Normal 5-15 [facility] Comment on above: Performed By: #### L 500.2500, L503.7505, L100.0100, L501.4021 ####[facility] [address] [place], [address] GFR/1.73 sq M.predicted among non-blacks MDRD (S/P/Bld) [Vol rate/Area] 24 mL/min/{1.73_m2} Low >60 [facility] Comment on above: Result Comment: mL/m in/1.73m2 CKD-EPI Creatinine Equation (2020) Performed By: #### L 500.2500, L503.7505, L100.0100, L501.4021 ####[facility] [address] [place], [address] Glucose [Mass/Vol] 129 mg/dL High 70-99 [facility] Comment on above: Performed By: #### L 500.2500, L503.7505, L100.0100, L501.4021 ####[facility] [address] [place], [address] Potassium [Moles/Vol] 3.9 mmol/L Normal 3.3-5.1 [facility] Comment on above: Performed By: #### L 500.2500, L503.7505, L100.0100, L501.4021 ####[facility] [address] [place], [address] Sodium [Moles/Vol] 131 mmol/L Low 133-145 [facility] Comment on above: Performed By: #### L 500.2500, L503.7505, L100.0100, L501.4021 ####[facility] [address] [place], [address] Urea nitrogen [Mass/Vol] 68 mg/dL High 4-19 [facility] Comment on above: Performed By: #### L 500.2500, L503.7505, L100.0100, L501.4021 ####[facility] [address] [place], [address] Basophil percentageOrdered B y: Magdy Pang on 02-16-2025 Basophils/100 WBC (Bld) 1.0 % 0-1 [facility] Blood manual differential co mment interpretation (narrative result)Ordered By: Magdy Pang on 02-16-2025 Manual differential comment Cristhian (Bld) [Interp] SCANNED [facility] Blood polychromasia detectio n by light microscopyOrdered By: Magdy Pang on 02-16-2025 Polychromasia LM Ql (Bld) 1+ [facility] CBC W/Diff, Automatedon 02-02 HYPOCHROMASIA 1+ Normal [facility] Comment on above: Performed By: #### L 500.2500, L503.7505, L100.0100, L501.4021 ####[facility] [address] [place], [address] POLYCHROMASIA 1+ Normal [facility] Comment on above: Performed By: #### L 500.2500, L503.7505, L100.0100, L501.4021 ####[facility] [address] [place], [address] Anisocytosis Ql (Bld) 2+ Normal [facility] Comment on above: Performed By: #### L 500.2500, L503.7505, L100.0100, L501.4021 ####[facility] [address] [place], [address] PLT EST SLT DEC Normal ADEQ [facility] Comment on above: Performed By: #### L 500.2500, L503.7505, L100.0100, L501.4021 ####[facility] [address] [place], [address] SMEAR COMMENT SCANNED Normal [facility] Comment on above: Performed By: #### L 500.2500, L503.7505, L100.0100, L501.4021 ####[facility] [address] [place], [address] Carbon dioxide, total [Moles /volume] in Central venous bloodOrdered By: Magdy Pang on 02-16-2025 CO2 [Moles/Vol] 23.9 mmol/L 21.0-32.0 [facility] Chest PA and Lateralon 02-16 Chest PA and Lateral Normal [facility] Chloride assayOrdered By: Rancho Pang on 02-16-2025 Chloride [Moles/Vol] 92 mmol/L Low 98-108 [facility] Emergency Department Summary on 02-16-2025 Emergency Department Summary Normal [facility] Eosinophil percentageOrdered By: Magdy Pang on 02-16-2025 Eosinophils/100 WBC (Bld) 1.2 % 0-5 [facility] Erythrocyte distribution wid th ratioOrdered By: Magdy Pang on 02-16-2025 Erythrocyte distribution width (RBC) [Ratio] 24.4 % High 11.6-14.6 [facility] Erythrocyte distribution wid th standard deviationOrdered By: Magdy Pang on 02-16-2025 Erythrocyte distribution width (RBC) [Ratio] 76.4 fl High 35.1-43.9 [facility] Glomerular filtration rate ( GFR) estimation/1.73 sq m using serum, plasma, or whole bOrdered By: Magdy Pang on 02-16-2025 GFR/1.73 sq M.predicted among non-blacks MDRD (S/P/Bld) [Vol rate/Area] 24 mL/min/{1.73_m2} Low >60 [facility] Comment on above: mL/min/1.73m2 CKD-EP I Creatinine Equation (2020) Hematocrit Auto (Bld) [Volum e fraction]Ordered By: Magdy Pang on 02-16-2025 Hematocrit (Bld) [Volume fraction] 32.2 % Low 37-47 [facility] Hemoglobin measurementOrdere d By: Magdy Pang on 02-16-2025 Hemoglobin (Bld) [Mass/Vol] 10.3 g/dL Low 12.0-15.0 [facility] Hypochromatic red blood cell detectionOrdered By: Magdy Pang on 02-16-2025 Hypochromia Ql (Bld) 1+ [facility] Immature granulocytes/100 WB C Auto (Bld)Ordered By: Magdy Pang on 02-16-2025 Immature granulocytes/100 WBC (Bld) 0.300 % 0.0-0.9 [facility] Comment on above: IG% - Immature Granu locytes (promyelocytes, myelocytes and metamyelocytes) > 1% indicates that a LEFT SHIFT is Present. L501.4021on 02-16-2025 Trop T High Sen 94 ng/L Invalid Interpretation Code <=14 [facility] Comment on above: Result Comment: Crit ical Result(s) Called at 1447: by: JOSH MARI. ??Results read back by same. Performed By: #### L 500.2500, L503.7505, L100.0100, L501.4021 ####[facility] [address] [place], [address] Laboratory - Hematology and Cell countsOrdered By: Magdy Pang on 02-16-2025 Anisocytosis Ql (Bld) 2+ [facility] MCV (mean corpuscular volume ) determinationOrdered By: Magdy Pang on 02-16-2025 MCV (RBC) [Entitic vol] 87.0 fL 81-99 [facility] Mean corpuscular hemoglobin (MCH) determinationOrdered By: Magdy Pang on 02-16-2025 MCH (RBC) [Entitic mass] 27.8 pg 27.0-32.0 [facility] Mean corpuscular hemoglobin concentration (MCHC) determinationOrdered By: Magdy Pang on 02-16-2025 MCHC (RBC) [Mass/Vol] 32.0 g/dL 32-36 [facility] Mean platelet volume determi nationOrdered By: Magdy Pang on 02-16-2025 Platelet mean volume (Bld) [Entitic vol] 9.5 fL 6.2-12.0 [facility] Monocyte percentageOrdered B y: Magdy Pang on 02-16-2025 Monocytes/100 WBC (Bld) 13.7 % High 0-10 [facility] Natriuretic peptide.B prohor daria N-Terminal [Mass/volume] in Serum or PlasmaOrdered By: Magdy Pang on 02-16-2025 Natriuretic peptide.B prohormone N-Terminal [Mass/Vol] 20840 pg/mL High <1800 [facility] Comment on above: Heart Failure Unlike ly: < 300 pg/mLHeart Failure Likely< 50 Years: > 450 pg/mL50-75 Years: > 900 pg/mL>75 Years: > 1800 pg/mL Neutrophil percentageOrdered By: Magdy Pang on 02-16-2025 Neutrophils/100 WBC (Bld) 60.6 % 47-70 [facility] No Panel InformationOrdered By: Magdy Pang on 02-16-2025 2+ [facility] Nucleated red blood cell per centageOrdered By: Magdy Pang on 02-16-2025 Nucleated RBC/100 WBC (Bld) [Ratio] 0 % 0-5 [facility] Platelet countOrdered By: Rancho Pang on 02-16-2025 Platelets (Bld) [#/Vol] 139 10*3/uL Low 150-450 [facility] Platelet estimateOrdered By: Magdy Pang on 02-16-2025 Platelets LM Ql (Bld) SLT DEC ADEQ [facility] Potassium measurement (mass/ volume)Ordered By: Magdy Pang on 02-16-2025 Potassium (Unsp spec) [Mass/Vol] 3.9 mmol/L 3.3-5.1 [facility] Pro- Brain NATRIURETIC PEPTI Drew 02-16-2025 Natriuretic peptide B (Bld) [Mass/Vol] 65252 pg/mL High <=1800 [facility] Comment on above: Result Comment: Hear t Failure Unlikely: < 300 pg/mLHeart Failure Likely< 50 Years: > 450 pg/mL50-75 Years: > 900 pg/mL>75 Years: > 1800 pg/mL Performed By: #### L 500.2500, L503.7505, L100.0100, L501.4021 ####[facility] [address] [place], [address] RBC Auto (Bld) [#/Vol]Ordere d By: Magdy Pang on 02-16-2025 RBC (Bld) [#/Vol] 3.70 10*6/uL Low 4.2-5.4 [facility] Serum creatinine measurement (mass/volume)Ordered By: Magdy Pang on 02-16-2025 Creatinine [Mass/Vol] 2.04 mg/dL High 0.70-1.20 [facility] Serum glucose measurement (m ass/volume)Ordered By: Magdy Pang on 02-16-2025 Glucose [Mass/Vol] 129 mg/dL High 70-99 [facility] Serum or plasma calcium bijan urement (mass/volume)Ordered By: Magdy Pang on 02-16-2025 Calcium [Mass/Vol] 9.5 mg/dL 7.6-11.0 [facility] Serum or plasma urea nitroge n measurement (mass/volume)Ordered By: Magdy Pang on 02-16-2025 Urea nitrogen [Mass/Vol] 68 mg/dL High 4-19 [facility] Sodium levelOrdered By: Magdy Pang on 02-16-2025 Sodium [Moles/Vol] 131 mmol/L Low 133-145 [facility] Troponin T HS 2 HRon 025 Trop T High Sen 88 ng/L Invalid Interpretation Code <=14 [facility] Comment on above: Result Comment: Crit ical Result(s) Called at 1627: by: JOSH TREJO. ??Results read back by same. Performed By: #### L 499.0042 ####[facility] [address] [place], [place], [id number] Troponin T HS 4 HRon 025 Trop T High Sen Normal <=14 [facility] Comment on above: Result Comment: JENARO ENT DISCHARGED Performed By: #### L 499.0043 ####[facility] [address] [place], [place], [address] Troponin T.cardiac [Mass/vol ume] in Serum or Plasma by High sensitivity methodOrdered By: Magdy Pang on 02-16-2025 Troponin T.cardiac High sensitivity method [Mass/Vol] 88 ng/L Critically high <14 [facility] Comment on above: Critical Result(s) C alled at 1627: by: JOSH LOZANO. Results read back by same. Troponin T.cardiac High sensitivity method [Mass/Vol] 94 ng/L Critically high <14 [facility] Comment on above: Delta: 71 on 5-1300Critical Result(s) Called at 1447: by: JOSH CEBALLOS. Results read back by same. White blood cell (WBC) count Ordered By: Magdy Pang on 02-16-2025 WBC (Bld) [#/Vol] 6.1 10*3/uL 4.4-11.0 [facility] CRP, High Sensitivity [id number] on 02-15-2025 CRP, HIGH SENS 41.42 mg/L High 0.00-3.00 [facility] Comment on above: Result Comment: Resu lts confirmed ondilution. Relative Risk for Future Cardiovascular Event Low <1.00 Average 1.00 - 3.00 High >3.00Performed at: - [facility] [address] [place], [place] [id number] Director: Chuy Rizvi PhD, Phone: [phone] Performed By: #### L 101.9900, L501.9520, L501.7300, L100.0100, L501.7400, L500.4050, L501.5500, L3100.7870 ####[facility] [address] [place], [address] Absolute lymphocyte countOrd ered By: Vincent Flores on 02-13-2025 Lymphocytes Auto (Unsp spec) [#/Vol] 1.58 10*3/uL 0.83-4.51 [facility] Absolute neutrophil countOrd ered By: Vincent Flores on 02-13-2025 Neutrophils (Bld) [#/Vol] 5.1 10*3/uL 2.0-7.7 [facility] Anion gap in Serum or Plasma Ordered By: Vincent Flores on 02-13-2025 Anion gap [Moles/Vol] 17 mmol/L High 5-15 [facility] Automated lymphocyte count a s percentage of total leukocytesOrdered By: Vincent Flores on 02-13-2025 Lymphocytes/100 WBC Auto (Unsp spec) 20.6 % 19-41 [facility] BUN/creatinine ratioOrdered By: Vincent Flores on 02-13-2025 Urea nitrogen/Creatinine [Mass ratio] 27.4 mg/mg High 10-20 [facility] Basophil percentageOrdered B y: Vincent Flores on 02-13-2025 Basophils/100 WBC (Bld) 0.7 % 0-1 [facility] Bilirubin, totalOrdered By: Vincent Flores on 02-13-2025 Bilirubin [Mass/Vol] 1.18 mg/dL 0.00-1.30 [facility] Blood manual differential co mment interpretation (narrative result)Ordered By: Vincent Flores on 02-13-2025 Manual differential comment Cristhian (Bld) [Interp] SCANNED [facility] Blood polychromasia detectio n by light microscopyOrdered By: Vincent Flores on 02-13-2025 Polychromasia LM Ql (Bld) 1+ [facility] C-reactive protein measureme nt by high sensitivity methodOrdered By: Vincent Flores on 02-13-2025 C-reactive protein measurement by high sensitivity method 41.42 mg/L High 0.00-3.00 [facility] Comment on above: Results confirmed on dilution. Relative Risk for Future Cardiovascular Event Low <1.00 Average 1.00 - 3.00 High >3.00Performed at: [place] [id number] Director: Chuy Rizvi PhD, Phone: [phone] CBC W/Diff, Automatedon 02-02 HYPOCHROMASIA 2+ Normal [facility] Comment on above: Performed By: #### L 101.9900, L501.9520, L501.7300, L100.0100, L501.7400, L500.4050, L501.5500, L3100.7870 ####[facility] [address] [place], [place], [id number] Anisocytosis Ql (Bld) 2+ Normal [facility] Comment on above: Performed By: #### L 101.9900, L501.9520, L501.7300, L100.0100, L501.7400, L500.4050, L501.5500, L3100.7870 ####[facility] [address] [place], [place], [id number] POLYCHROMASIA 1+ Normal [facility] Comment on above: Performed By: #### L 101.9900, L501.9520, L501.7300, L100.0100, L501.7400, L500.4050, L501.5500, L3100.7870 ####[facility] [address] [place], [address] PLT EST ADEQUATE Normal ADEQ [facility] Comment on above: Performed By: #### L 101.9900, L501.9520, L501.7300, L100.0100, L501.7400, L500.4050, L501.5500, L3100.7870 ####[facility] [address] [place], [place], [phone] SMEAR COMMENT SCANNED Normal [facility] Comment on above: Performed By: #### L 101.9900, L501.9520, L501.7300, L100.0100, L501.7400, L500.4050, L501.5500, L3100.7870 ####[facility] [address] [place], [place], [id number] Carbon dioxide, total [Moles /volume] in Central venous bloodOrdered By: Vincent Flores on 02-13-2025 CO2 [Moles/Vol] 24.2 mmol/L 21.0-32.0 [facility] Chloride assayOrdered By: Ishmael Flores on 02-13-2025 Chloride [Moles/Vol] 91 mmol/L Low 98-108 [facility] Comprehensive Metabolic Prof ilon 02-13-2025 Albumin [Mass/Vol] 4.1 g/dL Normal 3.4-4.8 [facility] Comment on above: Performed By: #### L 101.9900, L501.9520, L501.7300, L100.0100, L501.7400, L500.4050, L501.5500, L3100.7870 ####[facility] [address] [place], [place], [phone] Albumin/Globulin [Mass ratio] 1.2 {ratio} Normal 0.9-2.4 [facility] Comment on above: Performed By: #### L 101.9900, L501.9520, L501.7300, L100.0100, L501.7400, L500.4050, L501.5500, L3100.7870 ####[facility] [address] [place], [address] ALK PHOS 109 U/L High 35-104 [facility] Comment on above: Performed By: #### L 101.9900, L501.9520, L501.7300, L100.0100, L501.7400, L500.4050, L501.5500, L3100.7870 ####[facility] [address] [place], [address] ALT [Catalytic activity/Vol] 11 U/L Normal <=34 [facility] Comment on above: Performed By: #### L 101.9900, L501.9520, L501.7300, L100.0100, L501.7400, L500.4050, L501.5500, L3100.7870 ####[facility] [address] [place], [address] AST [Catalytic activity/Vol] 26 U/L Normal <=31 [facility] Comment on above: Performed By: #### L 101.9900, L501.9520, L501.7300, L100.0100, L501.7400, L500.4050, L501.5500, L3100.7870 ####[facility] [address] [place], [address] Bilirubin [Mass/Vol] 1.18 mg/dL Normal 0.00-1.30 [facility] Comment on above: Performed By: #### L 101.9900, L501.9520, L501.7300, L100.0100, L501.7400, L500.4050, L501.5500, L3100.7870 ####[facility] [address] [place], [address] BUN/CRE 27.4 RATIO High 10-20 [facility] Comment on above: Performed By: #### L 101.9900, L501.9520, L501.7300, L100.0100, L501.7400, L500.4050, L501.5500, L3100.7870 ####[facility] [address] [place], [address] Calcium [Mass/Vol] 9.7 mg/dL Normal 7.6-11.0 [facility] Comment on above: Performed By: #### L 101.9900, L501.9520, L501.7300, L100.0100, L501.7400, L500.4050, L501.5500, L3100.7870 ####[facility] [address] [place], [address] Chloride [Moles/Vol] 91 mmol/L Low 98-108 [facility] Comment on above: Performed By: #### L 101.9900, L501.9520, L501.7300, L100.0100, L501.7400, L500.4050, L501.5500, L3100.7870 ####[facility] [address] [place], [address] CO2 [Moles/Vol] 24.2 mmol/L Normal 21.0-32.0 [facility] Comment on above: Performed By: #### L 101.9900, L501.9520, L501.7300, L100.0100, L501.7400, L500.4050, L501.5500, L3100.7870 ####[facility] [address] [place], [address] Creatinine [Mass/Vol] 2.25 mg/dL High 0.70-1.20 [facility] Comment on above: Performed By: #### L 101.9900, L501.9520, L501.7300, L100.0100, L501.7400, L500.4050, L501.5500, L3100.7870 ####[facility] [address] [place], [address] GAP 17 High 5-15 [facility] Comment on above: Performed By: #### L 101.9900, L501.9520, L501.7300, L100.0100, L501.7400, L500.4050, L501.5500, L3100.7870 ####[facility] [address] [place], [address] GFR/1.73 sq M.predicted among non-blacks MDRD (S/P/Bld) [Vol rate/Area] 22 mL/min/{1.73_m2} Low >60 [facility] Comment on above: Result Comment: mL/m in/1.73m2 CKD-EPI Creatinine Equation (2020) Performed By: #### L 101.9900, L501.9520, L501.7300, L100.0100, L501.7400, L500.4050, L501.5500, L3100.7870 ####[facility] [address] [place], [address] Globulin (S) [Mass/Vol] 3.4 g/dL Normal 2.2-4.2 [facility] Comment on above: Performed By: #### L 101.9900, L501.9520, L501.7300, L100.0100, L501.7400, L500.4050, L501.5500, L3100.7870 ####[facility] [address] [place], [address] Glucose [Mass/Vol] 90 mg/dL Normal 70-99 [facility] Comment on above: Performed By: #### L 101.9900, L501.9520, L501.7300, L100.0100, L501.7400, L500.4050, L501.5500, L3100.7870 ####[facility] [address] [place], [place], [phone]) Potassium [Moles/Vol] 3.5 mmol/L Normal 3.3-5.1 [facility] Comment on above: Performed By: #### L 101.9900, L501.9520, L501.7300, L100.0100, L501.7400, L500.4050, L501.5500, L3100.7870 ####[facility] [address] [place], [address] Sodium [Moles/Vol] 132 mmol/L Low 133-145 [facility] Comment on above: Performed By: #### L 101.9900, L501.9520, L501.7300, L100.0100, L501.7400, L500.4050, L501.5500, L3100.7870 ####[facility] [address] [place], [place], [phone]) T PROT 7.4 g/dL Normal 5.9-8.4 [facility] Comment on above: Performed By: #### L 101.9900, L501.9520, L501.7300, L100.0100, L501.7400, L500.4050, L501.5500, L3100.7870 ####[facility] [address] [place], [address] Urea nitrogen [Mass/Vol] 62 mg/dL High 4-19 [facility] Comment on above: Performed By: #### L 101.9900, L501.9520, L501.7300, L100.0100, L501.7400, L500.4050, L501.5500, L3100.7870 ####[facility] [address] [place], [place], [phone]) Eosinophil percentageOrdered By: Vincent Flores on 02-13-2025 Eosinophils/100 WBC (Bld) 1.4 % 0-5 [facility] Erythrocyte Sed Rateon 02-13 SED RATE 25 mm/hr Normal 0-30 [facility] Comment on above: Performed By: #### L 101.9900, L501.9520, L501.7300, L100.0100, L501.7400, L500.4050, L501.5500, L3100.7870 ####[facility] [address] [place], [address] Erythrocyte distribution wid th ratioOrdered By: Vincent Flores on 02-13-2025 Erythrocyte distribution width (RBC) [Ratio] 24.1 % High 11.6-14.6 [facility] Erythrocyte distribution wid th standard deviationOrdered By: Vincent Flores on 02-13-2025 Erythrocyte distribution width (RBC) [Ratio] 76.2 fl High 35.1-43.9 [facility] Erythrocyte sedimentation ra teOrdered By: Vincent Flores 02-13-2025 ESR (Bld) [Velocity] 25 mm/h 0-30 [facility] Glomerular filtration rate ( GFR) estimation/1.73 sq m using serum, plasma, or whole bOrdered By: Vincent Flores on 02-13-2025 GFR/1.73 sq M.predicted among non-blacks MDRD (S/P/Bld) [Vol rate/Area] 22 mL/min/{1.73_m2} Low >60 [facility] Comment on above: mL/min/1.73m2 CKD-EP I Creatinine Equation (2020) Hematocrit Auto (Bld) [Volum e fraction]Ordered By: Vincent Flores 02-13-2025 Hematocrit (Bld) [Volume fraction] 31.1 % Low 37-47 [facility] Hemoglobin measurementOrdere d By: Vincent Flores 02-13-2025 Hemoglobin (Bld) [Mass/Vol] 9.8 g/dL Low 12.0-15.0 [facility] Hypochromatic red blood cell detectionOrdered By: Vincent Flores 02-13-2025 Hypochromia Ql (Bld) 2+ [facility] Immature granulocytes/100 WB C Auto (Bld)Ordered By: Vincent Flores 02-13-2025 Immature granulocytes/100 WBC (Bld) 0.300 % 0.0-0.9 [facility] Comment on above: IG% - Immature Granu locytes (promyelocytes, myelocytes and metamyelocytes) > 1% indicates that a LEFT SHIFT is Present. Laboratory - Chemistry and C hemistry - challengeOrdered By: Vincent Mark on 02-13-2025 AST [Catalytic activity/Vol] 26 U/L <32 [facility] Laboratory - Hematology and Cell countsOrdered By: Vincent Mark02-13-2025 Anisocytosis Ql (Bld) 2+ [facility] MCV (mean corpuscular volume ) determinationOrdered By: Vincent Flores 02-13-2025 MCV (RBC) [Entitic vol] 87.6 fL 81-99 [facility] Mean corpuscular hemoglobin (MCH) determinationOrdered By: Vincent Flores 02-13-2025 MCH (RBC) [Entitic mass] 27.6 pg 27.0-32.0 [facility] Mean corpuscular hemoglobin concentration (MCHC) determinationOrdered By: Vincent Flores 02-13-2025 MCHC (RBC) [Mass/Vol] 31.5 g/dL Low 32-36 [facility] Mean platelet volume determi nationOrdered By: Vincent Flores 02-13-2025 Platelet mean volume (Bld) [Entitic vol] 10.1 fL 6.2-12.0 [facility] Monocyte percentageOrdered B y: Vincent Mark02-13-2025 Monocytes/100 WBC (Bld) 11.1 % High 0-10 [facility] Neutrophil percentageOrdered By: Vincent Peters02-13-2025 Neutrophils/100 WBC (Bld) 65.9 % 47-70 [facility] No Panel InformationOrdered By: Vincent Flores 02-13-2025 2+ [facility] 26 U/L <32 [facility] Nucleated red blood cell per centageOrdered By: Vincent Flores 02-13-2025 Nucleated RBC/100 WBC (Bld) [Ratio] 0 % 0-5 [facility] Osmolality urOrdered By: Vincent Flores 02-13-2025 Osmolality (U) [Osmolality] 315 mOsm/KG >50 [facility] Comment on above: Normal Urine Referen ce Ranges Random: 50 - 1200 mOsm/kg H20 depending on fluid intake Random: >850 mOsm/kg after 12 hour fluid restriction 24 hour: ~300 - 900 mOsm/kg H2O Osmolality, Serumon 02-14-20 25 OSMOLALITY,SER 295 mOsm/KG Normal 280-301 [facility] Comment on above: Performed By: #### L 101.9900, L501.9520, L501.7300, L100.0100, L501.7400, L500.4050, L501.5500, L3100.7870 ####[facility] [address] [place], [place], [phone] Osmolality, Urineon 02-14-20 25 OSMOLALITY,UR 315 mOsm/KG Normal [facility] Comment on above: Result Comment: Norm al Urine Reference Ranges Random: 50 - 1200 mOsm/kg H20 depending on fluid intake Random: >850 mOsm/kg after 12 hour fluid restriction 24 hour: 300 - 900 mOsm/kg H2O Performed By: #### L 101.9900, L501.9520, L501.7300, L100.0100, L501.7400, L500.4050, L501.5500, L3100.7870 ####[facility] [address] [facility] [place], [place], [phone] Platelet countOrdered By: Ishmael Flores on 02-13-2025 Platelets (Bld) [#/Vol] 163 10*3/uL 150-450 [facility] Platelet estimateOrdered By: Vincent Flores on 02-13-2025 Platelets LM Ql (Bld) ADEQUATE ADEQ [facility] Potassium measurement (mass/ volume)Ordered By: Vincent Flores on 02-13-2025 Potassium (Unsp spec) [Mass/Vol] 3.5 mmol/L 3.3-5.1 [facility] RBC Auto (Bld) [#/Vol]Ordere d By: Vincent Flores on 02-13-2025 RBC (Bld) [#/Vol] 3.55 10*6/uL Low 4.2-5.4 [facility] Serum creatinine measurement (mass/volume)Ordered By: Vincent Flores on 02-13-2025 Creatinine [Mass/Vol] 2.25 mg/dL High 0.70-1.20 [facility] Serum globulin measurementOr dered By: Vincent Flores on 02-13-2025 Globulin (S) [Mass/Vol] 3.4 g/dL 2.2-4.2 [facility] Serum glucose measurement (m ass/volume)Ordered By: Vincent Flores on 02-13-2025 Glucose [Mass/Vol] 90 mg/dL 70-99 [facility] Serum or plasma alanine craven otransferase (ALT) measurementOrdered By: Vincent Flores on 02-13-2025 ALT [Catalytic activity/Vol] 11 U/L <35 [facility] Serum or plasma albumin bijan urement (mass/volume)Ordered By: Vincent Flores on 02-13-2025 Albumin [Mass/Vol] 4.1 g/dL 3.4-4.8 [facility] Serum or plasma albumin/glob ulin mass ratioOrdered By: Vincent Flores on 02-13-2025 Albumin/Globulin [Mass ratio] 1.2 {ratio} 0.9-2.4 [facility] Serum or plasma alkaline da sphatase measurementOrdered By: Vincent Flores on 02-13-2025 ALP [Catalytic activity/Vol] 109 U/L High 35-104 [facility] Serum or plasma calcium bijan urement (mass/volume)Ordered By: Vincent Flores on 02-13-2025 Calcium [Mass/Vol] 9.7 mg/dL 7.6-11.0 [facility] Serum or plasma urea nitroge n measurement (mass/volume)Ordered By: Vincent Flores on 02-13-2025 Urea nitrogen [Mass/Vol] 62 mg/dL High 4-19 [facility] Sodium levelOrdered By: Vincent Flores on 02-13-2025 Sodium [Moles/Vol] 132 mmol/L Low 133-145 [facility] TSH DL <= 0.005 mIU/L QnOrde red By: Vincent Flores on 02-13-2025 TSH Qn 3.180 uIU/mL 0.300-4.200 [facility] Thyroid Stim Hormone (TSH)on 02-13-2025 TSH 3.180 uIU/mL Normal 0.300-4.200 [facility] Comment on above: Performed By: #### L 101.9900, L501.9520, L501.7300, L100.0100, L501.7400, L500.4050, L501.5500, L3100.7870 ####[facility] [address] [place], [address] Total proteinOrdered By: Vincent Flores on 02-13-2025 Protein [Mass/Vol] 7.4 g/dL 5.9-8.4 [facility] Urine Sodiumon 02-13-2025 Sodium (U) [Moles/Vol] 57 mmol/L Normal Not Establ. [facility] Comment on above: Performed By: #### L 101.9900, L501.9520, L501.7300, L100.0100, L501.7400, L500.4050, L501.5500, L3100.7870 ####[facility] [address] [place], [place], [phone] Urine sodium measurement (mo les/volume)Ordered By: Vincent Flores on 02-13-2025 Sodium (U) [Moles/Vol] 57 mmol/L Not Establ. [facility] White blood cell (WBC) count Ordered By: Vincent Flores on 02-13-2025 WBC (Bld) [#/Vol] 7.7 10*3/uL 4.4-11.0 [facility] Pacemaker Checkon 02-08-2025 Pacemaker Check Normal [facility] Anion gap in Serum or Plasma Ordered By: Juan Diego Huynh on 02-05-2025 Anion gap [Moles/Vol] 17 mmol/L High 5-15 [facility] BUN/creatinine ratioOrdered By: Juan Diego Huynh on 02-05-2025 Urea nitrogen/Creatinine [Mass ratio] 33.5 mg/mg High - [facility] Basic Metabolic Profile (BMP )on 02-05-2025 BUN/CRE 33.5 RATIO [facility] Comment on above: Performed By: #### L 503.7505, L500.2500 ####[facility] [address] [place], [address] Calcium [Mass/Vol] 9.5 mg/dL Normal 7.6-11.0 [facility] Comment on above: Performed By: #### L 503.7505, L500.2500 ####[facility] [address] [place], [address] Chloride [Moles/Vol] 90 mmol/L Low 98-108 [facility] Comment on above: Performed By: #### L 503.7505, L500.2500 ####[facility] [address] [place], [address] CO2 [Moles/Vol] 22.7 mmol/L Normal 21.0-32.0 [facility] Comment on above: Performed By: #### L 503.7505, L500.2500 ####[facility] [address] [place], [address] Creatinine [Mass/Vol] 2.11 mg/dL High 0.70-1.20 [facility] Comment on above: Performed By: #### L 503.7505, L500.2500 ####[facility] [address] [place], [address] GAP 17 High 5-15 [facility] Comment on above: Performed By: #### L 503.7505, L500.2500 ####[facility] [address] [place], [address] GFR/1.73 sq M.predicted among non-blacks MDRD (S/P/Bld) [Vol rate/Area] 23 mL/min/{1.73_m2} Low >60 [facility] Comment on above: Result Comment: mL/m in/1.73m2 CKD-EPI Creatinine Equation (2020) Performed By: #### L 503.7505, L500.2500 ####[facility] [address] [place], [address] Glucose [Mass/Vol] 159 mg/dL High 70-99 [facility] Comment on above: Performed By: #### L 503.7505, L500.2500 ####[facility] [address] [place], [address] Potassium [Moles/Vol] 4.2 mmol/L Normal 3.3-5.1 [facility] Comment on above: Performed By: #### L 503.7505, L500.2500 ####[facility] [address] [place], [address] Sodium [Moles/Vol] 130 mmol/L Low 133-145 [facility] Comment on above: Performed By: #### L 503.7505, L500.2500 ####[facility] [address] [place], [address] Urea nitrogen [Mass/Vol] 71 mg/dL High 4-19 [facility] Comment on above: Performed By: #### L 503.7505, L500.2500 ####[facility] [address] [place], [address] Carbon dioxide, total [Moles /volume] in Central venous bloodOrdered By: Juan Diego Huynh on 02-05-2025 CO2 [Moles/Vol] 22.7 mmol/L 21.0-32.0 [facility] Cardiology Visit Reporton Cardiology Visit Report Normal [facility] Chloride assayOrdered By: Jennifer Huynh on 02-05-2025 Chloride [Moles/Vol] 90 mmol/L Low 98-108 [facility] Glomerular filtration rate ( GFR) estimation/1.73 sq m using serum, plasma, or whole bOrdered By: Juan Diego Huynh on 02-05-2025 GFR/1.73 sq M.predicted among non-blacks MDRD (S/P/Bld) [Vol rate/Area] 23 mL/min/{1.73_m2} Low >60 [facility] Comment on above: mL/min/1.73m2 CKD-EP I Creatinine Equation (2021) Natriuretic peptide.B prohor daria N-Terminal [Mass/volume] in Serum or PlasmaOrdered By: Juan Diego Huynh on 02-05-2025 Natriuretic peptide.B prohormone N-Terminal [Mass/Vol] 9503 pg/mL High <1800 [facility] Comment on above: Heart Failure Unlike ly: < 300 pg/mLHeart Failure Likely< 50 Years: > 450 pg/mL50-75 Years: > 900 pg/mL>75 Years: > 1800 pg/mL Potassium measurement (mass/ volume)Ordered By: Juan Diego Huynh on 02-05-2025 Potassium (Unsp spec) [Mass/Vol] 4.2 mmol/L 3.3-5.1 [facility] Pro- Brain NATRIURETIC PEPTI Drew 02-05-2025 Natriuretic peptide B (Bld) [Mass/Vol] 9503 pg/mL High <=1800 [facility] Comment on above: Result Comment: Hear t Failure Unlikely: < 300 pg/mLHeart Failure Likely< 50 Years: > 450 pg/mL50-75 Years: > 900 pg/mL>75 Years: > 1800 pg/mL Performed By: #### L 503.7505, L500.2500 ####[facility] [address] [place], [place], [id number] Serum creatinine measurement (mass/volume)Ordered By: Juan Diego Huynh on 02-05-2025 Creatinine [Mass/Vol] 2.11 mg/dL High 0.70-1.20 [facility] Serum glucose measurement (m ass/volume)Ordered By: Juan Diego Huynh on 02-05-2025 Glucose [Mass/Vol] 159 mg/dL High 70-99 [facility] Serum or plasma calcium bijan urement (mass/volume)Ordered By: Juan Diego Huynh on 02-05-2025 Calcium [Mass/Vol] 9.5 mg/dL 7.6-11.0 [facility] Serum or plasma urea nitroge n measurement (mass/volume)Ordered By: Juan Diego Huynh on 02-05-2025 Urea nitrogen [Mass/Vol] 71 mg/dL High 4-19 [facility] Sodium levelOrdered By: Phi Huynh on 02-05-2025 Sodium [Moles/Vol] 130 mmol/L Low 133-145 [facility] Absolute lymphocyte countOrd ered By: Vincent Flores on 02-01-2025 Lymphocytes Auto (Unsp spec) [#/Vol] 1.38 10*3/uL 0.83-4.51 [facility] Absolute neutrophil countOrd ered By: Vincent Flores on 02-01-2025 Neutrophils (Bld) [#/Vol] 5.0 10*3/uL 2.0-7.7 [facility] Anion gap in Serum or Plasma Ordered By: Vincent Flores on 02-01-2025 Anion gap [Moles/Vol] 16 mmol/L High 5-15 [facility] Automated lymphocyte count a s percentage of total leukocytesOrdered By: Vincent Mark on 02-01-2025 Lymphocytes/100 WBC Auto (Unsp spec) 18.6 % Low 19-41 [facility] BUN/creatinine ratioOrdered By: Vincent Mark on 02-01-2025 Urea nitrogen/Creatinine [Mass ratio] 30.6 mg/mg High 10-20 [facility] Basophil percentageOrdered B y: Vincent Flores on 02-01-2025 Basophils/100 WBC (Bld) 0.7 % 0-1 [facility] Bilirubin, totalOrdered By: Vincent Flores on 02-01-2025 Bilirubin [Mass/Vol] 0.99 mg/dL 0.00-1.30 [facility] CBC W/Diff, Automatedon 01-04 Absolute Lymph 1.38 X10 3/uL Normal 0.83-4.51 [facility] Comment on above: Performed By: #### L 500.4050, L506.1001, L501.9520, L100.0100 ####[facility] [address] [place], [address] Absolute Neut 5.0 X10 3/uL Normal 2.0-7.7 [facility] Comment on above: Performed By: #### L 500.4050, L506.1001, L501.9520, L100.0100 ####[facility] [address] [place], [address] Basophils/100 WBC (Bld) 0.7 % Normal 0-1 [facility] Comment on above: Performed By: #### L 500.4050, L506.1001, L501.9520, L100.0100 ####[facility] [address] [place], [address] Eosinophils/100 WBC (Bld) 1.6 % Normal 0-5 [facility] Comment on above: Performed By: #### L 500.4050, L506.1001, L501.9520, L100.0100 ####[facility] [address] [place], [address] Erythrocyte distribution width (RBC) [Ratio] 19.9 % High 11.6-14.6 [facility] Comment on above: Performed By: #### L 500.4050, L506.1001, L501.9520, L100.0100 ####[facility] [address] [place], [address] Hematocrit (Bld) [Volume fraction] 29.6 % Low 37-47 [facility] Comment on above: Performed By: #### L 500.4050, L506.1001, L501.9520, L100.0100 ####[facility] [address] [place], [address] Hemoglobin (Bld) [Mass/Vol] 9.5 g/dL Low 12.0-15.0 [facility] Comment on above: Performed By: #### L 500.4050, L506.1001, L501.9520, L100.0100 ####[facility] [address] [place], [address] IG% 0.700 Normal 0.0-0.9 [facility] Comment on above: Result Comment: IG% - Immature Granulocytes (promyelocytes, myelocytes andmetamyelocytes) > 1% indicates that a LEFT SHIFT is Present. Performed By: #### L 500.4050, L506.1001, L501.9520, L100.0100 ####[facility] [address] [place], [address] Lymphocytes/100 WBC (Bld) 18.6 % Low 19-41 [facility] Comment on above: Performed By: #### L 500.4050, L506.1001, L501.9520, L100.0100 ####[facility] [address] [place], [address] MCH (RBC) [Entitic mass] 27.1 pg Normal 27.0-32.0 [facility] Comment on above: Performed By: #### L 500.4050, L506.1001, L501.9520, L100.0100 ####[facility] [address] [place], [address] MCHC (RBC) [Mass/Vol] 32.1 g/dL Normal 32-36 [facility] Comment on above: Performed By: #### L 500.4050, L506.1001, L501.9520, L100.0100 ####[facility] [address] [place], [address] MCV (RBC) [Entitic vol] 84.6 fL Normal 81-99 [facility] Comment on above: Performed By: #### L 500.4050, L506.1001, L501.9520, L100.0100 ####[facility] [address] [place], [address] Monocytes/100 WBC (Bld) 11.2 % High 0-10 [facility] Comment on above: Performed By: #### L 500.4050, L506.1001, L501.9520, L100.0100 ####[facility] [address] [place], [address] Neutrophils/100 WBC (Bld) 67.2 % Normal 47-70 [facility] Comment on above: Performed By: #### L 500.4050, L506.1001, L501.9520, L100.0100 ####[facility] [address] [place], [id number] Nucleated RBC (Bld) [#/Vol] 0 10*3/uL Normal 0-5 [facility] Comment on above: Performed By: #### L 500.4050, L506.1001, L501.9520, L100.0100 ####[facility] [address] [place], [id number] Platelet mean volume (Bld) [Entitic vol] 9.6 fL Normal 6.2-12.0 [facility] Comment on above: Performed By: #### L 500.4050, L506.1001, L501.9520, L100.0100 ####[facility] [address] [place], [id number] Platelets (Bld) [#/Vol] 209 10*3/uL Normal 150-450 [facility] Comment on above: Performed By: #### L 500.4050, L506.1001, L501.9520, L100.0100 ####[facility] [address] [place], [id number] RBC (Bld) [#/Vol] 3.50 10*6/uL Low 4.2-5.4 [facility] Comment on above: Performed By: #### L 500.4050, L506.1001, L501.9520, L100.0100 ####[facility] [address] [place], [id number] RDW SD 61.5 fl High 35.1-43.9 [facility] Comment on above: Performed By: #### L 500.4050, L506.1001, L501.9520, L100.0100 ####[facility] [address] [place], [address] WBC (Bld) [#/Vol] 7.4 10*3/uL Normal 4.4-11.0 [facility] Comment on above: Performed By: #### L 500.4050, L506.1001, L501.9520, L100.0100 ####[facility] [address] [place], [address] Carbon dioxide, total [Moles /volume] in Central venous bloodOrdered By: Vincent Flores on 02-01-2025 CO2 [Moles/Vol] 25.1 mmol/L 21.0-32.0 [facility] Chloride assayOrdered By: Ishmael Flores on 02-01-2025 Chloride [Moles/Vol] 88 mmol/L Low 98-108 [facility] Comprehensive Metabolic Prof ilon 02-01-2025 Albumin [Mass/Vol] 4.2 g/dL Normal 3.4-4.8 [facility] Comment on above: Performed By: #### L 500.4050, L506.1001, L501.9520, L100.0100 ####[facility] [address] [place], [address] Albumin/Globulin [Mass ratio] 1.3 {ratio} Normal 0.9-2.4 [facility] Comment on above: Performed By: #### L 500.4050, L506.1001, L501.9520, L100.0100 ####[facility] [address] [place], [address] ALK PHOS 120 U/L High 35-104 [facility] Comment on above: Performed By: #### L 500.4050, L506.1001, L501.9520, L100.0100 ####[facility] [address] [place], [address] ALT [Catalytic activity/Vol] 11 U/L Normal <=34 [facility] Comment on above: Performed By: #### L 500.4050, L506.1001, L501.9520, L100.0100 ####[facility] [address] [place], [address] AST [Catalytic activity/Vol] 26 U/L Normal <=31 [facility] Comment on above: Performed By: #### L 500.4050, L506.1001, L501.9520, L100.0100 ####[facility] [address] [place], [address] Bilirubin [Mass/Vol] 0.99 mg/dL Normal 0.00-1.30 [facility] Comment on above: Performed By: #### L 500.4050, L506.1001, L501.9520, L100.0100 ####[facility] [address] [place], [address] BUN/CRE 30.6 RATIO High 10-20 [facility] Comment on above: Performed By: #### L 500.4050, L506.1001, L501.9520, L100.0100 ####[facility] [address] [place], [address] Calcium [Mass/Vol] 9.3 mg/dL Normal 7.6-11.0 [facility] Comment on above: Performed By: #### L 500.4050, L506.1001, L501.9520, L100.0100 ####[facility] [address] [place], [address] Chloride [Moles/Vol] 88 mmol/L Low 98-108 [facility] Comment on above: Performed By: #### L 500.4050, L506.1001, L501.9520, L100.0100 ####[facility] [address] [place], [address] CO2 [Moles/Vol] 25.1 mmol/L Normal 21.0-32.0 [facility] Comment on above: Performed By: #### L 500.4050, L506.1001, L501.9520, L100.0100 ####[facility] [address] [place], [address] Creatinine [Mass/Vol] 2.46 mg/dL High 0.70-1.20 [facility] Comment on above: Performed By: #### L 500.4050, L506.1001, L501.9520, L100.0100 ####[facility] [address] [place], [address] GAP 16 High 5-15 [facility] Comment on above: Performed By: #### L 500.4050, L506.1001, L501.9520, L100.0100 ####[facility] [address] [place], [address] GFR/1.73 sq M.predicted among non-blacks MDRD (S/P/Bld) [Vol rate/Area] 19 mL/min/{1.73_m2} Low >60 [facility] Comment on above: Result Comment: mL/m in/1.73m2 CKD-EPI Creatinine Equation (2020) Performed By: #### L 500.4050, L506.1001, L501.9520, L100.0100 ####[facility] [address] [place], [address] Globulin (S) [Mass/Vol] 3.2 g/dL Normal 2.2-4.2 [facility] Comment on above: Performed By: #### L 500.4050, L506.1001, L501.9520, L100.0100 ####[facility] [address] [place], [address] Glucose [Mass/Vol] 138 mg/dL High 70-99 [facility] Comment on above: Performed By: #### L 500.4050, L506.1001, L501.9520, L100.0100 ####[facility] [address] [place], [address] Potassium [Moles/Vol] 3.4 mmol/L Normal 3.3-5.1 [facility] Comment on above: Performed By: #### L 500.4050, L506.1001, L501.9520, L100.0100 ####[facility] [address] [place], [address] Sodium [Moles/Vol] 129 mmol/L Low 133-145 [facility] Comment on above: Performed By: #### L 500.4050, L506.1001, L501.9520, L100.0100 ####[facility] [address] [place], [address] T PROT 7.4 g/dL Normal 5.9-8.4 [facility] Comment on above: Performed By: #### L 500.4050, L506.1001, L501.9520, L100.0100 ####[facility] [address] [place], [address] Urea nitrogen [Mass/Vol] 75 mg/dL High 4-19 [facility] Comment on above: Performed By: #### L 500.4050, L506.1001, L501.9520, L100.0100 ####[facility] [address] [place], [address] Eosinophil percentageOrdered By: Vincent Flores on 02-01-2025 Eosinophils/100 WBC (Bld) 1.6 % 0-5 [facility] Erythrocyte distribution wid th ratioOrdered By: Vincent Flores on 02-01-2025 Erythrocyte distribution width (RBC) [Ratio] 19.9 % High 11.6-14.6 [facility] Erythrocyte distribution wid th standard deviationOrdered By: Vincent Flores on 02-01-2025 Erythrocyte distribution width (RBC) [Ratio] 61.5 fl High 35.1-43.9 [facility] Glomerular filtration rate ( GFR) estimation/1.73 sq m using serum, plasma, or whole bOrdered By: Vincent Flores on 02-01-2025 GFR/1.73 sq M.predicted among non-blacks MDRD (S/P/Bld) [Vol rate/Area] 19 mL/min/{1.73_m2} Low >60 [facility] Comment on above: mL/min/1.73m2 CKD-EP I Creatinine Equation (2020) Hematocrit Auto (Bld) [Volum e fraction]Ordered By: Vincent Flores 02-01-2025 Hematocrit (Bld) [Volume fraction] 29.6 % Low 37-47 [facility] Hemoglobin measurementOrdere d By: Vincent Flores 02-01-2025 Hemoglobin (Bld) [Mass/Vol] 9.5 g/dL Low 12.0-15.0 [facility] Immature granulocytes/100 WB C Auto (Bld)Ordered By: Vincent Flores 02-01-2025 Immature granulocytes/100 WBC (Bld) 0.700 % 0.0-0.9 [facility] Comment on above: IG% - Immature Granu locytes (promyelocytes, myelocytes and metamyelocytes) > 1% indicates that a LEFT SHIFT is Present. Laboratory - Chemistry and C hemistry - challengeOrdered By: Vincent Flores 02-01-2025 AST [Catalytic activity/Vol] 26 U/L <32 [facility] MCV (mean corpuscular volume ) determinationOrdered By: Vincent Flores 02-01-2025 MCV (RBC) [Entitic vol] 84.6 fL 81-99 [facility] Mean corpuscular hemoglobin (MCH) determinationOrdered By: Vincent Flores 02-01-2025 MCH (RBC) [Entitic mass] 27.1 pg 27.0-32.0 [facility] Mean corpuscular hemoglobin concentration (MCHC) determinationOrdered By: Vincent Flores 02-01-2025 MCHC (RBC) [Mass/Vol] 32.1 g/dL 32-36 [facility] Mean platelet volume determi nationOrdered By: Vincent Flores 02-01-2025 Platelet mean volume (Bld) [Entitic vol] 9.6 fL 6.2-12.0 [facility] Monocyte percentageOrdered B y: Vincent Flores on 02-01-2025 Monocytes/100 WBC (Bld) 11.2 % High 0-10 [facility] Neutrophil percentageOrdered By: Vincent Flores on 02-01-2025 Neutrophils/100 WBC (Bld) 67.2 % 47-70 [facility] No Panel InformationOrdered By: Vincent Flores on 02-01-2025 26 U/L <32 [facility] Nucleated red blood cell per centageOrdered By: Vincent Flores on 02-01-2025 Nucleated RBC/100 WBC (Bld) [Ratio] 0 % 0-5 [facility] Platelet countOrdered By: Ishmael Flores on 02-01-2025 Platelets (Bld) [#/Vol] 209 10*3/uL 150-450 [facility] Potassium measurement (mass/ volume)Ordered By: Vincent Flores on 02-01-2025 Potassium (Unsp spec) [Mass/Vol] 3.4 mmol/L 3.3-5.1 [facility] RBC Auto (Bld) [#/Vol]Ordere d By: Vincent Flores on 02-01-2025 RBC (Bld) [#/Vol] 3.50 10*6/uL Low 4.2-5.4 [facility] Serum creatinine measurement (mass/volume)Ordered By: Vincent Flores on 02-01-2025 Creatinine [Mass/Vol] 2.46 mg/dL High 0.70-1.20 [facility] Serum globulin measurementOr dered By: Vincent Flores on 02-01-2025 Globulin (S) [Mass/Vol] 3.2 g/dL 2.2-4.2 [facility] Serum glucose measurement (m ass/volume)Ordered By: Vincent Flores 02-01-2025 Glucose [Mass/Vol] 138 mg/dL High 70-99 [facility] Serum or plasma alanine craven otransferase (ALT) measurementOrdered By: Vincent Flores 02-01-2025 ALT [Catalytic activity/Vol] 11 U/L <35 [facility] Serum or plasma albumin bijan urement (mass/volume)Ordered By: Vincent Flores on 02-01-2025 Albumin [Mass/Vol] 4.2 g/dL 3.4-4.8 [facility] Serum or plasma albumin/glob ulin mass ratioOrdered By: Vincent Flores on 02-01-2025 Albumin/Globulin [Mass ratio] 1.3 {ratio} 0.9-2.4 [facility] Serum or plasma alkaline da sphatase measurementOrdered By: Vincent Flores on 02-01-2025 ALP [Catalytic activity/Vol] 120 U/L High 35-104 [facility] Serum or plasma calcium bijan urement (mass/volume)Ordered By: Vincent Flores on 02-01-2025 Calcium [Mass/Vol] 9.3 mg/dL 7.6-11.0 [facility] Serum or plasma urea nitroge n measurement (mass/volume)Ordered By: Vincent Flores 02-01-2025 Urea nitrogen [Mass/Vol] 75 mg/dL High 4-19 [facility] Sodium levelOrdered By: Vincent Flores on 02-01-2025 Sodium [Moles/Vol] 129 mmol/L Low 133-145 [facility] TSH DL <= 0.005 mIU/L QnOrde red By: Vincent Flores on 02-01-2025 TSH Qn 4.710 uIU/mL High 0.300-4.200 [facility] Thyroid Stim Hormone (TSH)on 02-01-2025 TSH 4.710 uIU/mL High 0.300-4.200 [facility] Comment on above: Performed By: #### L 500.4050, L506.1001, L501.9520, L100.0100 ####[facility] [address] [place], [address] Total proteinOrdered By: Vincent Flores on 02-01-2025 Protein [Mass/Vol] 7.4 g/dL 5.9-8.4 [facility] Vitamin D,25 Hydroxyon 02-01 Vitamin D 25-OH 36.3 ng/mL Normal 30-100 [facility] Comment on above: Result Comment: Haydee min D StatusDeficiency: <20 ng/mL (50nmol/L)Insufficiency: 20-30 ng/mL (50-75 nmol/L)Sufficiency: 30-100 ng/mL (75-250 nmol/L)Toxicity: >100 ng/mL (>250 nmol/L) Performed By: #### L 500.4050, L506.1001, L501.9520, L100.0100 ####[facility] [address] [place], [place], [address] White blood cell (WBC) count Ordered By: Vincent Flores on 02-01-2025 WBC (Bld) [#/Vol] 7.4 10*3/uL 4.4-11.0 [facility] AST(SGOT)on 01-23-2025 AST [Catalytic activity/Vol] 24 U/L Normal <=31 [facility] Comment on above: Performed By: #### L 501.4100, L3890.6301, L501.4600, L100.0100, L501.9520, L001.0705, L501.2300, L501.4305, L501.4405, L500.4100, L506.1001 ####[facility] [address] [facility] [place], [place], [id number] Absolute lymphocyte countOrd ered By: Vincent Flores on 01-23-2025 Lymphocytes Auto (Unsp spec) [#/Vol] 1.55 10*3/uL 0.83-4.51 [facility] Absolute neutrophil countOrd ered By: Vincent Flores on 01-23-2025 Neutrophils (Bld) [#/Vol] 6.1 10*3/uL 2.0-7.7 [facility] Alanine Aminotransferas (SGP T)on 01-23-2025 ALT [Catalytic activity/Vol] 11 U/L Normal <=34 [facility] Comment on above: Performed By: #### L 501.4100, L3890.6301, L501.4600, L100.0100, L501.9520, L001.0705, L501.2300, L501.4305, L501.4405, L500.4100, L506.1001 ####[facility] [address] [place], [place], [address] Alkaline Phosphataseon 01-23 ALK PHOS 126 U/L High 35-104 [facility] Comment on above: Performed By: #### L 501.4100, L3890.6301, L501.4600, L100.0100, L501.9520, L001.0705, L501.2300, L501.4305, L501.4405, L500.4100, L506.1001 ####[facility] [address] [place], [place], [id number] Anion gap in Serum or Plasma Ordered By: Jeremy Mcgarry on 01-23-2025 Anion gap [Moles/Vol] 17 mmol/L High 5-15 [facility] Automated lymphocyte count a s percentage of total leukocytesOrdered By: Vincent Flores on 01-23-2025 Lymphocytes/100 WBC Auto (Unsp spec) 16.8 % Low 19-41 [facility] BUN/creatinine ratioOrdered By: Jeremy Mcgarry on 01-23-2025 Urea nitrogen/Creatinine [Mass ratio] 29.1 mg/mg High 10-20 [facility] Basophil percentageOrdered B y: Vincent Flores on 01-23-2025 Basophils/100 WBC (Bld) 0.8 % 0-1 [facility] Bilirubin, totalOrdered By: Vincent Flores on 01-23-2025 Bilirubin [Mass/Vol] 1.15 mg/dL 0.00-1.30 [facility] Blood manual differential co mment interpretation (narrative result)Ordered By: Vincent Flores on 01-23-2025 Manual differential comment Cristhian (Bld) [Interp] SCANNED [facility] Blood polychromasia detectio n by light microscopyOrdered By: Vincent Flores on 01-23-2025 Polychromasia LM Ql (Bld) 1+ [facility] CBC W/Diff, Automatedon 01-03 HYPOCHROMASIA 3+ Normal [facility] Comment on above: Performed By: #### L 501.4100, L3890.6301, L501.4600, L100.0100, L501.9520, L001.0705, L501.2300, L501.4305, L501.4405, L500.4100, L506.1001 ####[facility] [address] [place], [place], [id number] Anisocytosis Ql (Bld) 2+ Normal [facility] Comment on above: Performed By: #### L 501.4100, L3890.6301, L501.4600, L100.0100, L501.9520, L001.0705, L501.2300, L501.4305, L501.4405, L500.4100, L506.1001 ####[facility] [address] [place], [place], [id number] PLT EST ADEQUATE Normal ADEQ [facility] Comment on above: Performed By: #### L 501.4100, L3890.6301, L501.4600, L100.0100, L501.9520, L001.0705, L501.2300, L501.4305, L501.4405, L500.4100, L506.1001 ####[facility] [address] [place], [place], [id number] POLYCHROMASIA 1+ Normal [facility] Comment on above: Performed By: #### L 501.4100, L3890.6301, L501.4600, L100.0100, L501.9520, L001.0705, L501.2300, L501.4305, L501.4405, L500.4100, L506.1001 ####[facility] [address] [place], [place], [id number] SMEAR COMMENT SCANNED Normal [facility] Comment on above: Performed By: #### L 501.4100, L3890.6301, L501.4600, L100.0100, L501.9520, L001.0705, L501.2300, L501.4305, L501.4405, L500.4100, L506.1001 ####[facility] [address] [place], [address] CBC-Complete Blood Cnt No Di ffon 01-23-2025 SCAN INDICATED? YES- FLAGS NOTED Normal [facility] Comment on above: Result Comment: DR. FLORES ORDERED CBCD Performed By: #### L 501.0900, L501.5200, L500.3600, L100.0500 ####[facility] [address] [place], [address] Erythrocyte distribution width (RBC) [Ratio] 20.1 % High 11.6-14.6 [facility] Comment on above: Result Comment: DR. FLORES ORDERED CBCD Performed By: #### L 501.0900, L501.5200, L500.3600, L100.0500 ####[facility] [address] [place], [address] Hematocrit (Bld) [Volume fraction] 28.2 % Low 37-47 [facility] Comment on above: Result Comment: DR. FLORES ORDERED CBCD Performed By: #### L 501.0900, L501.5200, L500.3600, L100.0500 ####[facility] [address] [place], [address] Hemoglobin (Bld) [Mass/Vol] 9.0 g/dL Low 12.0-15.0 [facility] Comment on above: Result Comment: DR. FLORES ORDERED CBCD Performed By: #### L 501.0900, L501.5200, L500.3600, L100.0500 ####[facility] [address] [place], [address] MCH (RBC) [Entitic mass] 28.1 pg Normal 27.0-32.0 [facility] Comment on above: Result Comment: DR. FLORES ORDERED CBCD Performed By: #### L 501.0900, L501.5200, L500.3600, L100.0500 ####[facility] [address] [place], [address] MCHC (RBC) [Mass/Vol] 31.9 g/dL Low 32-36 [facility] Comment on above: Result Comment: DR. FLORES ORDERED CBCD Performed By: #### L 501.0900, L501.5200, L500.3600, L100.0500 ####[facility] [address] [place], [address] MCV (RBC) [Entitic vol] 88.1 fL Normal 81-99 [facility] Comment on above: Result Comment: DR. FLORES ORDERED CBCD Performed By: #### L 501.0900, L501.5200, L500.3600, L100.0500 ####[facility] [address] [place], [address] Platelet mean volume (Bld) [Entitic vol] 9.8 fL Normal 6.2-12.0 [facility] Comment on above: Result Comment: DR. FLORES ORDERED CBCD Performed By: #### L 501.0900, L501.5200, L500.3600, L100.0500 ####[facility] [address] [place], [address] Platelets (Bld) [#/Vol] 214 10*3/uL Normal 150-450 [facility] Comment on above: Result Comment: DR. FLORES ORDERED CBCD Performed By: #### L 501.0900, L501.5200, L500.3600, L100.0500 ####[facility] [address] [place], [address] POSITIVE MORPH YES Abnormal [facility] Comment on above: Result Comment: DR. FLORES ORDERED CBCD Performed By: #### L 501.0900, L501.5200, L500.3600, L100.0500 ####[facility] [address] [place], [address] RBC (Bld) [#/Vol] 3.20 10*6/uL Low 4.2-5.4 [facility] Comment on above: Result Comment: DR. FLORES ORDERED CBCD Performed By: #### L 501.0900, L501.5200, L500.3600, L100.0500 ####[facility] [address] [place], [address] RDW SD 64.7 fl High 35.1-43.9 [facility] Comment on above: Result Comment: DR. FLORES ORDERED CBCD Performed By: #### L 501.0900, L501.5200, L500.3600, L100.0500 ####[facility] [address] [place], [address] WBC (Bld) [#/Vol] 8.9 10*3/uL Normal 4.4-11.0 [facility] Comment on above: Result Comment: DR. FLORES ORDERED CBCD Performed By: #### L 501.0900, L501.5200, L500.3600, L100.0500 ####[facility] [address] [place], [address] Calculated very low density lipoprotein (VLDL) cholesterol measurementOrdered By: Vincent Flores on 01-23-2025 Calculated very low density lipoprotein (VLDL) cholesterol measurement 10 mg/dL 5-40 [facility] Carbon dioxide, total [Moles /volume] in Central venous bloodOrdered By: Jeremy Mcgarry on 01-23-2025 CO2 [Moles/Vol] 23.7 mmol/L 21.0-32.0 [facility] Chloride assayOrdered By: Darío Mcgarry on 01-23-2025 Chloride [Moles/Vol] 91 mmol/L Low 98-108 [facility] Eosinophil percentageOrdered By: Vincent Flores on 01-23-2025 Eosinophils/100 WBC (Bld) 1.0 % 0-5 [facility] Erythrocyte distribution wid th ratioOrdered By: Vincent Flores on 01-23-2025 Erythrocyte distribution width (RBC) [Ratio] 20.2 % High 11.6-14.6 [facility] Erythrocyte distribution wid th standard deviationOrdered By: Vincent Flores on 01-23-2025 Erythrocyte distribution width (RBC) [Ratio] 65.1 fl High 35.1-43.9 [facility] Glomerular filtration rate ( GFR) estimation/1.73 sq m using serum, plasma, or whole bOrdered By: Jeremy Mcgarry on 01-23-2025 GFR/1.73 sq M.predicted among non-blacks MDRD (S/P/Bld) [Vol rate/Area] 25 mL/min/{1.73_m2} Low >60 [facility] Comment on above: mL/min/1.73m2 CKD-EP I Creatinine Equation (2020) Hematocrit Auto (Bld) [Volum e fraction]Ordered By: Vincent Flores on 01-23-2025 Hematocrit (Bld) [Volume fraction] 28.4 % Low 37-47 [facility] Hemoglobin measurementOrdere d By: Vincent Flores on 01-23-2025 Hemoglobin (Bld) [Mass/Vol] 9.4 g/dL Low 12.0-15.0 [facility] Hepatitis C Antibodyon 01-23 Hepatitis C Ab Non-Reactive Normal Nonreactive [facility] Comment on above: Result Comment: Reac tive: Presumptive evidence of antibodies to HCV. FollowC recommendations for supplemental testing.Non-Reactive: Antibodies to HCV were not detected; does notexclude the possibility of exposure to HCVReactive Results are presumptive evidence of antibodies toHCV. Follow CDC recommendations for supplemental testing.Order confirmation testing: HCV Quant by PCR testing -HCVPCR #[id number] Non Reactive: < 0.8 Equivocal: >/= 0.8 to < 1.0 Reactive: >/= 1.0The CDC requires that a reactive/equivocal HCV antibodyresult be sent out for confirmation. HCV Quant by PCRtesting. Performed By: #### L 501.4100, L3890.6301, L501.4600, L100.0100, L501.9520, L001.0705, L501.2300, L501.4305, L501.4405, L500.4100, L506.1001 ####[facility] [address] [place], [place], [id number] Hypochromatic red blood cell detectionOrdered By: Vincent Flores on 01-23-2025 Hypochromia Ql (Bld) 3+ [facility] Immature granulocytes/100 WB C Auto (Bld)Ordered By: Vincent Flores on 01-23-2025 Immature granulocytes/100 WBC (Bld) 0.300 % 0.0-0.9 [facility] Comment on above: IG% - Immature Granu locytes (promyelocytes, myelocytes and metamyelocytes) > 1% indicates that a LEFT SHIFT is Present. LDL calc ser/plasOrdered By: Vincent Flores on 01-23-2025 Cholesterol in LDL [Mass/Vol] 25 mg/dL [facility] Comment on above: Kxmgpraicp=028-834 m g/dL & Higher Nhwu=866 mg/dL or greater Laboratory - Chemistry and C hemistry - challengeOrdered By: Vincent Flores on 01-23-2025 AST [Catalytic activity/Vol] 24 U/L <32 [facility] Laboratory - Hematology and Cell countsOrdered By: Vincent Flores on 01-23-2025 Anisocytosis Ql (Bld) 2+ [facility] Lipid Profileon 01-23-2025 CHOL:HDL 2.00 Normal [facility] Comment on above: Performed By: #### L 501.4100, L3890.6301, L501.4600, L100.0100, L501.9520, L001.0705, L501.2300, L501.4305, L501.4405, L500.4100, L506.1001 ####[facility] [address] [place], [address] Cholesterol [Mass/Vol] 72 mg/dL Normal <=200 [facility] Comment on above: Result Comment: Chol esterol level, Desirable <200 mg/dLBorderline high cholesterol 200-239 mg/dLHigh cholesterol >=240 mg/dLRecommendations of the NCEP Adult Treatment Panel for thefollowing risk-cutoff thresholds for the [place] Americanpulation. Performed By: #### L 501.4100, L3890.6301, L501.4600, L100.0100, L501.9520, L001.0705, L501.2300, L501.4305, L501.4405, L500.4100, L506.1001 ####[facility] [address] [place], [place], [id number] Cholesterol in HDL [Mass/Vol] 36 mg/dL Low [facility] Comment on above: Result Comment: Ligia onal Cholesterol Education Program (NCEP) guidelines:<40 mg/dL: Low HDL-cholesterol (major risk factor for CHD)>= 60 mg/dL: High HDL-cholesterol (negative risk factor forCHD)HDL-cholesterol is affected by a number of factors, e.g.smoking, exercise, hormones, sex and age. Performed By: #### L 501.4100, L3890.6301, L501.4600, L100.0100, L501.9520, L001.0705, L501.2300, L501.4305, L501.4405, L500.4100, L506.1001 ####[facility] [address] [place], [place], [id number] Cholesterol in LDL [Mass/Vol] 25 mg/dL Normal [facility] Comment on above: Result Comment: Bord ptapth=211-910 mg/dL Higher Kmva=774 mg/dL or greater Performed By: #### L 501.4100, L3890.6301, L501.4600, L100.0100, L501.9520, L001.0705, L501.2300, L501.4305, L501.4405, L500.4100, L506.1001 ####[facility] [address] [place], [address] Cholesterol in VLDL [Mass/Vol] 10 mg/dL Normal 5-40 [facility] Comment on above: Performed By: #### L 501.4100, L3890.6301, L501.4600, L100.0100, L501.9520, L001.0705, L501.2300, L501.4305, L501.4405, L500.4100, L506.1001 ####[facility] [address] [facility] [facility] [address] [place], [place], [id number] Triglyceride [Mass/Vol] 52 mg/dL Normal [facility] Comment on above: Result Comment: The drugs N-Acetylcysteine and Metamizole may falselydepress this assay.Normal range: <150 mg/dLBorderline High: 150-199 mg/dLHigh: 200-499 mg/dLVery High: >500 mg/dL Performed By: #### L 501.4100, L3890.6301, L501.4600, L100.0100, L501.9520, L001.0705, L501.2300, L501.4305, L501.4405, L500.4100, L506.1001 ####[facility] [address] [facility] [place], [place], [id number] MCV (mean corpuscular volume ) determinationOrdered By: Vincent Flores on 01-23-2025 MCV (RBC) [Entitic vol] 87.7 fL 81-99 [facility] Magnesiumon 01-23-2025 Magnesium [Mass/Vol] 2.0 mg/dL Normal 1.5-2.2 [facility] Comment on above: Order Comment: DR. Bruce LACEY ORDERED CBCDPLEASE CC COPY OF RENAL AND MG TO DR. FLORES Performed By: #### L 501.0900, L501.5200, L500.3600, L100.0500 ####[facility] [address] [place], [address] Magnesium measurement (mass/ volume)Ordered By: Jeremy Mcgarry on 01-23-2025 Magnesium (Unsp spec) [Mass/Vol] 2.0 mg/dL 1.5-2.2 [facility] Mean corpuscular hemoglobin (MCH) determinationOrdered By: Vincent Flores on 01-23-2025 MCH (RBC) [Entitic mass] 29.0 pg 27.0-32.0 [facility] Mean corpuscular hemoglobin concentration (MCHC) determinationOrdered By: Vincent Flores on 01-23-2025 MCHC (RBC) [Mass/Vol] 33.1 g/dL 32-36 [facility] Mean platelet volume determi nationOrdered By: Vincent Flores on 01-23-2025 Platelet mean volume (Bld) [Entitic vol] 9.9 fL 6.2-12.0 [facility] Monocyte percentageOrdered B y: Vincent Flores on 01-23-2025 Monocytes/100 WBC (Bld) 15.6 % High 0-10 [facility] Neutrophil percentageOrdered By: Vincent Flores on 01-23-2025 Neutrophils/100 WBC (Bld) 65.5 % 47-70 [facility] No Panel InformationOrdered By: Vincent Flores on 01-23-2025 2+ [facility] 24 U/L <32 [facility] Nucleated red blood cell per centageOrdered By: Vincent Flores on 01-23-2025 Nucleated RBC/100 WBC (Bld) [Ratio] 0 % 0-5 [facility] Phosphoruson 01-23-2025 Phosphate [Mass/Vol] 3.1 mg/dL Normal 2.7-4.5 [facility] Comment on above: Performed By: #### L 501.4100, L3890.6301, L501.4600, L100.0100, L501.9520, L001.0705, L501.2300, L501.4305, L501.4405, L500.4100, L506.1001 ####[facility] [address] [place], [address] Platelet countOrdered By: Ishmael Flores on 01-23-2025 Platelets (Bld) [#/Vol] 224 10*3/uL 150-450 [facility] Platelet estimateOrdered By: Vincent Flores on 01-23-2025 Platelets LM Ql (Bld) ADEQUATE ADEQ [facility] Potassium measurement (mass/ volume)Ordered By: Jeremy Mcgarry on 01-23-2025 Potassium (Unsp spec) [Mass/Vol] 3.8 mmol/L 3.3-5.1 [facility] Protein+Creatinine Ratio,Uri neon 01-23-2025 PROT:CRE RATIO 477 mg/g CRE High 0-200 [facility] Comment on above: Performed By: #### L 501.0900, L501.5200, L500.3600, L100.0500 ####[facility] [address] [place], [address] Protein (U) [Mass/Vol] 32.2 mg/dL High 0.0-12.0 [facility] Comment on above: Performed By: #### L 501.0900, L501.5200, L500.3600, L100.0500 ####[facility] [address] [place], [address] UR CREAT 67.50 mg/dL Normal 28.00-217.00 [facility] Comment on above: Performed By: #### L 501.0900, L501.5200, L500.3600, L100.0500 ####[facility] [address] [place], [address] Protein, Totalon 01-23-2025 T PROT 7.4 g/dL Normal 5.9-8.4 [facility] Comment on above: Performed By: #### L 501.4100, L3890.6301, L501.4600, L100.0100, L501.9520, L001.0705, L501.2300, L501.4305, L501.4405, L500.4100, L506.1001 ####[facility] [address] [place], [address] RBC Auto (Bld) [#/Vol]Ordere d By: Vincent Flores on 01-23-2025 RBC (Bld) [#/Vol] 3.24 10*6/uL Low 4.2-5.4 [facility] Random urine creatinine bijan urement (mass/volume)Ordered By: Jeremy Mcgarry on 01-23-2025 Creatinine Unsp time (U) [Mass/Vol] 67.50 mg/dL 28.00-217.00 [facility] Renal Profileon 01-23-2025 Albumin [Mass/Vol] 4.0 g/dL Normal 3.4-4.8 [facility] Comment on above: Order Comment: DR. Bruce LACEY ORDERED CBCDPLEASE CC COPY OF RENAL AND MG TO DR. FLORES Performed By: #### L 501.0900, L501.5200, L500.3600, L100.0500 ####[facility] [address] [place], [address] BUN/CRE 29.1 RATIO High 10-20 [facility] Comment on above: Order Comment: DR. Bruce LACEY ORDERED CBCDPLEASE CC COPY OF RENAL AND MG TO DR. FLORES Performed By: #### L 501.0900, L501.5200, L500.3600, L100.0500 ####[facility] [address] [place], [address] Calcium [Mass/Vol] 9.5 mg/dL Normal 7.6-11.0 [facility] Comment on above: Order Comment: DR. Bruce LACEY ORDERED CBCDPLEASE CC COPY OF RENAL AND MG TO DR. FLORES Performed By: #### L 501.0900, L501.5200, L500.3600, L100.0500 ####[facility] [address] [place], [address] Chloride [Moles/Vol] 91 mmol/L Low 98-108 [facility] Comment on above: Order Comment: DR. Bruce LACEY ORDERED CBCDPLEASE CC COPY OF RENAL AND MG TO DR. FLORES Performed By: #### L 501.0900, L501.5200, L500.3600, L100.0500 ####[facility] [address] [place], [address] CO2 [Moles/Vol] 23.7 mmol/L Normal 21.0-32.0 [facility] Comment on above: Order Comment: DR. Bruce LACEY ORDERED CBCDPLEASE CC COPY OF RENAL AND MG TO DR. FLORES Performed By: #### L 501.0900, L501.5200, L500.3600, L100.0500 ####[facility] [address] [place], [address] Creatinine [Mass/Vol] 1.97 mg/dL High 0.70-1.20 [facility] Comment on above: Order Comment: DR. Bruce LACEY ORDERED CBCDPLEASE CC COPY OF RENAL AND MG TO DR. FLORES Performed By: #### L 501.0900, L501.5200, L500.3600, L100.0500 ####[facility] [address] [place], [address] GAP 17 High 5-15 [facility] Comment on above: Order Comment: DR. Bruce LACEY ORDERED CBCDPLEASE CC COPY OF RENAL AND MG TO DR. FLORES Performed By: #### L 501.0900, L501.5200, L500.3600, L100.0500 ####[facility] [address] [place], [address] GFR/1.73 sq M.predicted among non-blacks MDRD (S/P/Bld) [Vol rate/Area] 25 mL/min/{1.73_m2} Low >60 [facility] Comment on above: Order Comment: DR. Bruce LACEY ORDERED CBCDPLEASE CC COPY OF RENAL AND MG TO DR. FLORES Result Comment: mL/m in/1.73m2 CKD-EPI Creatinine Equation (2020) Performed By: #### L 501.0900, L501.5200, L500.3600, L100.0500 ####[facility] [address] [place], [address] Glucose [Mass/Vol] 105 mg/dL High 70-99 [facility] Comment on above: Order Comment: DR. Bruce LACEY ORDERED CBCDPLEASE CC COPY OF RENAL AND MG TO DR. FLORES Performed By: #### L 501.0900, L501.5200, L500.3600, L100.0500 ####[facility] [address] [place], [address] Phosphate [Mass/Vol] 3.1 mg/dL Normal 2.7-4.5 [facility] Comment on above: Order Comment: DR. Bruce LACEY ORDERED CBCDPLEASE CC COPY OF RENAL AND MG TO DR. FLORES Performed By: #### L 501.0900, L501.5200, L500.3600, L100.0500 ####[facility] [address] [place], [address] Potassium [Moles/Vol] 3.8 mmol/L Normal 3.3-5.1 [facility] Comment on above: Order Comment: DR. Bruce LACEY ORDERED CBCDPLEASE CC COPY OF RENAL AND MG TO DR. FLORES Performed By: #### L 501.0900, L501.5200, L500.3600, L100.0500 ####[facility] [address] [place], [address] Sodium [Moles/Vol] 131 mmol/L Low 133-145 [facility] Comment on above: Order Comment: DR. Bruce LACEY ORDERED CBCDPLEASE CC COPY OF RENAL AND MG TO DR. FLORES Performed By: #### L 501.0900, L501.5200, L500.3600, L100.0500 ####[facility] [address] [place], [address] Urea nitrogen [Mass/Vol] 57 mg/dL High 4-19 [facility] Comment on above: Order Comment: DR. Bruce LACEY ORDERED CBCDPLEASE CC COPY OF RENAL AND MG TO DR. FLORES Performed By: #### L 501.0900, L501.5200, L500.3600, L100.0500 ####[facility] [address] [place], [address] Screening total cholesterol/ high density lipoprotein (HDL) cholesterol ratioOrdered By: Vincent Flores on 01-23-2025 Cholesterol.total/Gin sterol in HDL [Mass ratio] 2.00 {ratio} [facility] Serum creatinine measurement (mass/volume)Ordered By: Jeremy Mcgarry on 01-23-2025 Creatinine [Mass/Vol] 1.97 mg/dL High 0.70-1.20 [facility] Serum glucose measurement (m ass/volume)Ordered By: Jeremy Mcgarry on 01-23-2025 Glucose [Mass/Vol] 105 mg/dL High 70-99 [facility] Serum or plasma alanine craven otransferase (ALT) measurementOrdered By: Vincent Flores on 01-23-2025 ALT [Catalytic activity/Vol] 11 U/L <35 [facility] Serum or plasma albumin bijan urement (mass/volume)Ordered By: Jeremy Mcgarry on 01-23-2025 Albumin [Mass/Vol] 4.0 g/dL 3.4-4.8 [facility] Serum or plasma alkaline da sphatase measurementOrdered By: Vincent Flores on 01-23-2025 ALP [Catalytic activity/Vol] 126 U/L High 35-104 [facility] Serum or plasma calcium bijan urement (mass/volume)Ordered By: Jeremy Mcgarry on 01-23-2025 Calcium [Mass/Vol] 9.5 mg/dL 7.6-11.0 [facility] Serum or plasma cholesterol in HDL measurement (mass/volume)Ordered By: Vincent Flores on 01-23-2025 Cholesterol in HDL [Mass/Vol] 36 mg/dL Low >40 [facility] Comment on above: National Cholesterol Education Program (NCEP) guidelines:<40 mg/dL: Low HDL-cholesterol (major risk factor for CHD)>= 60 mg/dL: High HDL-cholesterol (negative risk factor for CHD)HDL-cholesterol is affected by a number of factors, e.g. smoking, exercise, hormones, sex and age. Serum or plasma cholesterol measurement (mass/volume)Ordered By: Vincent Flores on 01-23-2025 Cholesterol [Mass/Vol] 72 mg/dL <201 [facility] Comment on above: Cholesterol level, D esirable <200 mg/dLBorderline high cholesterol 200-239 mg/dLHigh cholesterol >=240 mg/dLRecommendations of the NCEP Adult Treatment Panel for the following risk-cutoff thresholds for the [place] population. Serum or plasma urea nitroge n measurement (mass/volume)Ordered By: Jeremy Mcgarry on 01-23-2025 Urea nitrogen [Mass/Vol] 57 mg/dL High 4-19 [facility] Sodium levelOrdered By: Alvaro Mcgarry on 01-23-2025 Sodium [Moles/Vol] 131 mmol/L Low 133-145 [facility] TSH DL <= 0.005 mIU/L QnOrde red By: Vincent Flores on 01-23-2025 TSH Qn 6.900 uIU/mL High 0.300-4.200 [facility] Thyroid Stim Hormone (TSH)on 01-23-2025 TSH 6.900 uIU/mL High 0.300-4.200 [facility] Comment on above: Performed By: #### L 501.4100, L3890.6301, L501.4600, L100.0100, L501.9520, L001.0705, L501.2300, L501.4305, L501.4405, L500.4100, L506.1001 ####[facility] [address] [place], [place], [address] Total Bilirubinon 01-23-2025 Bilirubin [Mass/Vol] 1.15 mg/dL Normal 0.00-1.30 [facility] Comment on above: Performed By: #### L 501.4100, L3890.6301, L501.4600, L100.0100, L501.9520, L001.0705, L501.2300, L501.4305, L501.4405, L500.4100, L506.1001 ####[facility] [address] [place], [address] Total proteinOrdered By: Vincent Flores on 01-23-2025 Protein [Mass/Vol] 7.4 g/dL 5.9-8.4 [facility] Triglycerides measurementOrd ered By: Vincent Flores on 01-23-2025 Triglyceride [Mass/Vol] 52 mg/dL <199 [facility] Comment on above: The drugs N-Acetylcy steine and Metamizole may falsely depress this assay. Normal range: <150 mg/dLBorderline High: 150-199 mg/dLHigh: 200-499 mg/dLVery High: >500 mg/dL Urine protein measurement (m ass/volume)Ordered By: Jeremy Mcgarry on 01-23-2025 Protein (U) [Mass/Vol] 32.2 mg/dL High 0.0-12.0 [facility] Urine protein/creatinine mas s ratioOrdered By: Jeremy Mcgarry on 01-23-2025 Protein/Creatinine (U) [Mass ratio] 477 mg/g CRE High 0-200 [facility] Vitamin D,25 Hydroxyon 01-23 Vitamin D 25-OH 34.9 ng/mL Normal 30-100 [facility] Comment on above: Result Comment: [place] min D StatusDeficiency: <20 ng/mL (50nmol/L)Insufficiency: 20-30 ng/mL (50-75 nmol/L)Sufficiency: 30-100 ng/mL (75-250 nmol/L)Toxicity: >100 ng/mL (>250 nmol/L) Performed By: #### L 501.4100, L3890.6301, L501.4600, L100.0100, L501.9520, L001.0705, L501.2300, L501.4305, L501.4405, L500.4100, L506.1001 ####[facility] [address] [place], [address] White blood cell (WBC) count Ordered By: Vincent Flores on 01-23-2025 WBC (Bld) [#/Vol] 9.3 10*3/uL 4.4-11.0 [facility] Anion gap in Serum or Plasma Ordered By: Dianne Stovall on 01-11-2025 Anion gap [Moles/Vol] 13 mmol/L - [facility] BUN/creatinine ratioOrdered By: Dianne Stovall on 01-11-2025 Urea nitrogen/Creatinine [Mass ratio] 20.6 mg/mg High 04-23 [facility] Basic Metabolic Profile (BMP )on 01-11-2025 BUN/CRE 20.6 RATIO High 04-23 [facility] Comment on above: Performed By: #### L 500.2500 ####[facility] [address] [place], [address] Calcium [Mass/Vol] 9.0 mg/dL Normal 7.6-11.0 [facility] Comment on above: Performed By: #### L 500.2500 ####[facility] [address] [place], [address] Chloride [Moles/Vol] 95 mmol/L Low 98-108 [facility] Comment on above: Performed By: #### L 500.2500 ####[facility] [address] [place], [address] CO2 [Moles/Vol] 25.5 mmol/L Normal 21.0-32.0 [facility] Comment on above: Performed By: #### L 500.2500 ####[facility] [address] [place], [address] Creatinine [Mass/Vol] 1.97 mg/dL High 0.70-1.20 [facility] Comment on above: Performed By: #### L 500.2500 ####[facility] [address] [place], [address] ECRCL 21.99 ml/min Low 50-250 [facility] Comment on above: Performed By: #### L 500.2500 ####[facility] [address] [place], [address] GAP 13 Normal 5-15 [facility] Comment on above: Performed By: #### L 500.2500 ####[facility] [address] [place], [address] GFR/1.73 sq M.predicted among non-blacks MDRD (S/P/Bld) [Vol rate/Area] 25 mL/min/{1.73_m2} Low >60 [facility] Comment on above: Result Comment: mL/m in/1.73m2 CKD-EPI Creatinine Equation (2020) Performed By: #### L 500.2500 ####[facility] [address] [place], [address] Glucose [Mass/Vol] 117 mg/dL High 70-99 [facility] Comment on above: Performed By: #### L 500.2500 ####[facility] [address] [place], [address] Potassium [Moles/Vol] 4.4 mmol/L Normal 3.3-5.1 [facility] Comment on above: Performed By: #### L 500.2500 ####[facility] [address] [place], [address] Sodium [Moles/Vol] 134 mmol/L Normal 133-145 [facility] Comment on above: Performed By: #### L 500.2500 ####[facility] [address] [place], [address] Urea nitrogen [Mass/Vol] 41 mg/dL High 4-19 [facility] Comment on above: Performed By: #### L 500.2500 ####[facility] [address] [place], [place], [address] Bedside Glucoseon 01-11-2025 FINGERSTICK GLU 116 mg/dL High 74-106 [facility] Comment on above: Result Comment: JOHNSON MCCORMACK OF PATIENT CARE PER NURSING PROTOCOL Performed By: #### L 501.080 ####[facility] [address] [place], [place], [address] Carbon dioxide, total [Moles /volume] in Central venous bloodOrdered By: Dianne Stovall on 01-11-2025 CO2 [Moles/Vol] 25.5 mmol/L 21.0-32.0 [facility] Chloride assayOrdered By: Luis Stovall on 01-11-2025 Chloride [Moles/Vol] 95 mmol/L Low 98-108 [facility] Discharge Instructionon 01-02 Discharge Instruction Normal [facility] Glomerular filtration rate ( GFR) estimation/1.73 sq m using serum, plasma, or whole bOrdered By: Dianne Stovall on 01-11-2025 GFR/1.73 sq M.predicted among non-blacks MDRD (S/P/Bld) [Vol rate/Area] 25 mL/min/{1.73_m2} Low >60 [facility] Comment on above: mL/min/1.73m2 CKD-EP I Creatinine Equation (2020) [facility] at [facility] deOrdered By: Dianne Stovall on 01-11-2025 Glucose [Mass/Vol] 116 mg/dL High 74-106 [facility] Comment on above: MANAGEMENT OF PATIEN T CARE PER NURSING PROTOCOL Potassium measurement (mass/ volume)Ordered By: Dianne Stovall on 01-11-2025 Potassium (Unsp spec) [Mass/Vol] 4.4 mmol/L 3.3-5.1 [facility] Serum creatinine measurement (mass/volume)Ordered By: Dianne Stovall on 01-11-2025 Creatinine [Mass/Vol] 1.97 mg/dL High 0.70-1.20 [facility] Serum glucose measurement (m ass/volume)Ordered By: Dianne Stovall on 01-11-2025 Glucose [Mass/Vol] 117 mg/dL High 70-99 [facility] Serum or plasma calcium bijan urement (mass/volume)Ordered By: Dianne Stovall on 01-11-2025 Calcium [Mass/Vol] 9.0 mg/dL 7.6-11.0 [facility] Serum or plasma urea nitroge n measurement (mass/volume)Ordered By: Dianne Stovall on 01-11-2025 Urea nitrogen [Mass/Vol] 41 mg/dL High 4-19 [facility] Sodium levelOrdered By: Dianne Stovall on 01-11-2025 Sodium [Moles/Vol] 134 mmol/L 133-145 [facility] Bedside Glucoseon 01-10-2025 FINGERSTICK GLU 126 mg/dL High 74-106 [facility] Comment on above: Result Comment: JOHNSON GEMENT OF PATIENT CARE PER NURSING PROTOCOL Performed By: #### L 501.080 ####[facility] [address] [place], [address] FINGERSTICK GLU 133 mg/dL High 74-106 [facility] Comment on above: Result Comment: JOHNSON GEMENT OF PATIENT CARE PER NURSING PROTOCOL Performed By: #### L 501.080 ####[facility] [address] [place], [address] FINGERSTICK GLU 134 mg/dL High 74-106 [facility] Comment on above: Result Comment: JOHNSON GEMENT OF PATIENT CARE PER NURSING PROTOCOL Performed By: #### L 501.080 ####[facility] [address] [place], [address] Basic Metabolic Profile (BMP )on 01-09-2025 BUN/CRE 23.6 RATIO High 10-20 [facility] Comment on above: Performed By: #### L 500.2500 ####[facility] [address] [place], [address] Calcium [Mass/Vol] 8.9 mg/dL Normal 7.6-11.0 [facility] Comment on above: Performed By: #### L 500.2500 ####[facility] [address] [place], [address] Chloride [Moles/Vol] 95 mmol/L Low 98-108 [facility] Comment on above: Performed By: #### L 500.2500 ####[facility] [address] [place], [address] CO2 [Moles/Vol] 24.5 mmol/L Normal 21.0-32.0 [facility] Comment on above: Performed By: #### L 500.2500 ####[facility] [address] [place], [address] Creatinine [Mass/Vol] 1.85 mg/dL High 0.70-1.20 [facility] Comment on above: Performed By: #### L 500.2500 ####[facility] [address] [place], [address] ECRCL 23.14 ml/min Low 50-250 [facility] Comment on above: Performed By: #### L 500.2500 ####[facility] [address] [place], [address] GAP 13 Normal 5-15 [facility] Comment on above: Performed By: #### L 500.2500 ####[facility] [address] [place], [address] GFR/1.73 sq M.predicted among non-blacks MDRD (S/P/Bld) [Vol rate/Area] 27 mL/min/{1.73_m2} Low >60 [facility] Comment on above: Result Comment: mL/m in/1.73m2 CKD-EPI Creatinine Equation (2020) Performed By: #### L 500.2500 ####[facility] [address] [place], [address] Glucose [Mass/Vol] 135 mg/dL High 70-99 [facility] Comment on above: Performed By: #### L 500.2500 ####[facility] [address] [place], [address] Potassium [Moles/Vol] 4.5 mmol/L Normal 3.3-5.1 [facility] Comment on above: Performed By: #### L 500.2500 ####[facility] [address] [place], [address] Sodium [Moles/Vol] 133 mmol/L Normal 133-145 [facility] Comment on above: Performed By: #### L 500.2500 ####[facility] [address] [place], [address] Urea nitrogen [Mass/Vol] 44 mg/dL High 4-19 [facility] Comment on above: Performed By: #### L 500.2500 ####[facility] [address] [place], [address] Bedside Glucoseon 01-09-2025 FINGERSTICK GLU 111 mg/dL High 74-106 [facility] Comment on above: Result Comment: JOHNSON GEMENT OF PATIENT CARE PER NURSING PROTOCOL Performed By: #### L 501.080 ####[facility] [address] [place], [address] FINGERSTICK GLU 214 mg/dL High 74-106 [facility] Comment on above: Result Comment: JOHNSON GEMENT OF PATIENT CARE PER NURSING PROTOCOL Performed By: #### L 501.080 ####[facility] [address] [place], [address] FINGERSTICK GLU 132 mg/dL High 74-106 [facility] Comment on above: Result Comment: JOHNSON GEMENT OF PATIENT CARE PER NURSING PROTOCOL Performed By: #### L 501.080 ####[facility] [address] [place], [address] Absolute lymphocyte countOrd ered By: Radha Heller on 01-08-2025 Lymphocytes Auto (Unsp spec) [#/Vol] 2.11 10*3/uL 0.83-4.51 [facility] Absolute neutrophil countOrd ered By: Radha Heller on 01-08-2025 Neutrophils (Bld) [#/Vol] 3.0 10*3/uL 2.0-7.7 [facility] Automated lymphocyte count a s percentage of total leukocytesOrdered By: Radha Heller on 01-08-2025 Lymphocytes/100 WBC Auto (Unsp spec) 33.8 % 19-41 [facility] Basic Metabolic Profile (BMP )on 01-08-2025 BUN/CRE 24.9 RATIO High 10-20 [facility] Comment on above: Performed By: #### L 501.5200, L501.9520, L100.0100, L500.2500, L500.4100 ####[facility] [address] [place], [address] Calcium [Mass/Vol] 8.8 mg/dL Normal 7.6-11.0 [facility] Comment on above: Performed By: #### L 501.5200, L501.9520, L100.0100, L500.2500, L500.4100 ####[facility] [address] [place], [address] Chloride [Moles/Vol] 93 mmol/L Low 98-108 [facility] Comment on above: Performed By: #### L 501.5200, L501.9520, L100.0100, L500.2500, L500.4100 ####[facility] [address] [place], [address] CO2 [Moles/Vol] 25.7 mmol/L Normal 21.0-32.0 [facility] Comment on above: Performed By: #### L 501.5200, L501.9520, L100.0100, L500.2500, L500.4100 ####[facility] [address] [place], [address] Creatinine [Mass/Vol] 1.79 mg/dL High 0.70-1.20 [facility] Comment on above: Performed By: #### L 501.5200, L501.9520, L100.0100, L500.2500, L500.4100 ####[facility] [address] [place], [address] ECRCL 23.72 ml/min Low 50-250 [facility] Comment on above: Performed By: #### L 501.5200, L501.9520, L100.0100, L500.2500, L500.4100 ####[facility] [address] [place], [address] GAP 12 Normal 5-15 [facility] Comment on above: Performed By: #### L 501.5200, L501.9520, L100.0100, L500.2500, L500.4100 ####[facility] [address] [place], [address] GFR/1.73 sq M.predicted among non-blacks MDRD (S/P/Bld) [Vol rate/Area] 28 mL/min/{1.73_m2} Low >60 [facility] Comment on above: Result Comment: mL/m in/1.73m2 CKD-EPI Creatinine Equation (2020) Performed By: #### L 501.5200, L501.9520, L100.0100, L500.2500, L500.4100 ####[facility] [address] [place], [address] Glucose [Mass/Vol] 129 mg/dL High 70-99 [facility] Comment on above: Performed By: #### L 501.5200, L501.9520, L100.0100, L500.2500, L500.4100 ####[facility] [address] [place], [address] Potassium [Moles/Vol] 4.1 mmol/L Normal 3.3-5.1 [facility] Comment on above: Performed By: #### L 501.5200, L501.9520, L100.0100, L500.2500, L500.4100 ####[facility] [address] [place], [address] Sodium [Moles/Vol] 130 mmol/L Low 133-145 [facility] Comment on above: Performed By: #### L 501.5200, L501.9520, L100.0100, L500.2500, L500.4100 ####[facility] [address] [place], [address] Urea nitrogen [Mass/Vol] 45 mg/dL High 4-19 [facility] Comment on above: Performed By: #### L 501.5200, L501.9520, L100.0100, L500.2500, L500.4100 ####[facility] [address] [place], [address] Basophil percentageOrdered B y: Radha Heller on 01-08-2025 Basophils/100 WBC (Bld) 1.0 % 0-1 [facility] Bedside Glucoseon 01-08-2025 FINGERSTICK GLU 184 mg/dL High 74-106 [facility] Comment on above: Result Comment: JOHNSON GEMENT OF PATIENT CARE PER NURSING PROTOCOL Performed By: #### L 501.080 ####[facility] [address] [place], [address] FINGERSTICK GLU 136 mg/dL High 74-106 [facility] Comment on above: Result Comment: JOHNSON GEMENT OF PATIENT CARE PER NURSING PROTOCOL Performed By: #### L 501.080 ####[facility] [address] [place], [address] FINGERSTICK GLU 124 mg/dL High 74-106 [facility] Comment on above: Result Comment: JOHNSON GEMENT OF PATIENT CARE PER NURSING PROTOCOL Performed By: #### L 501.080 ####[facility] [address] [place], [address] Blood manual differential co mment interpretation (narrative result)Ordered By: Radha Heller on 01-08-2025 Manual differential comment Cristhian (Bld) [Interp] SCANNED [facility] CBC W/Diff, Automatedon RED CELL MORPH NORM C+C Normal NORM C C [facility] Comment on above: Performed By: #### L 501.5200, L501.9520, L100.0100, L500.2500, L500.4100 ####[facility] [address] [place], [address] PLT EST ADEQUATE Normal ADEQ [facility] Comment on above: Performed By: #### L 501.5200, L501.9520, L100.0100, L500.2500, L500.4100 ####[facility] [address] [place], [address] SMEAR COMMENT SCANNED Normal [facility] Comment on above: Performed By: #### L 501.5200, L501.9520, L100.0100, L500.2500, L500.4100 ####[facility] [address] [place], [address] Calculated very low density lipoprotein (VLDL) cholesterol measurementOrdered By: Radha Heller on 01-08-2025 Calculated very low density lipoprotein (VLDL) cholesterol measurement 14 mg/dL 5-40 [facility] Carotid Duplex Ultrasoundon 01-08-2025 Carotid Duplex Ultrasound Normal [facility] Consultation - Nephrologyon 01-08-2025 Consultation - Nephrology Normal [facility] Discharge Instructionon Discharge Instruction Normal [facility] Duplex ultrasound of carotid artery reportOrdered By: Abundio Turcios on 01-08-2025 Study report [facility] [address] [place] [address] Carotid Duplex Ultrasound 01/08/25 0841 MR#: [id number] Acct: [id number] Name: BERTA SANCHES Rep #:[id number] : 1945 79 From: Abundio Molina Attending Dr: Dr. Dianne Stovall DO Status: ADM IN Ordering Dr: Carla Ha DO Date: 01/08/25 Location: [facility] Sex: F C Admitted: 01/07/25 Reason For [...] the left vertebral artery. Procedure Carotid Duplex 43602. This is a Carotid Duplex examination using [...] 1244 Date _ Abundio Turcios MD CC: CHEMICAL RESEARCH TECHNICIAN-C Deysi Collazo; Dr. Carla Ha DO; Dr. Dianne Stovall DO ~ Date Dictated: 01/08/25 0841 Date Transcribed: 01/08/25 1244 Apartment Leasing Specialist: Signed [facility] Work Phone: Echocardiogram study reportO rdered By: Yaniv Masters on 01-08-2025 Study report [facility] [address] [place] [address] Echo Complete 01/08/25 1058 MR#: [id number] Acct: [id number] Name: BERTA SANCHES SCOTTIE Rep #:[id number] : 1945 79 From: Yaniv Molina Attending Dr: Dr. Dianne Stovall DO Status: ADM IN Ordering Dr: Radha Heller MD Date: Location: [facility] Sex: F C Admitted: 01/07/25 Reason For [...] Dictated: 01/08/25 1058 Date Transcribed: 01/08/25 1302 Apartment Leasing Specialist: Signed [facility] Work Phone: Electrocardiogram reportOrde red By: Yaniv Masters on 01-08-2025 EKG study [facility] Cardiovascular Services [address] [place] [address] 12 Lead EKG 01/07/25 1257 MR#: [id number] Acct: [id number] Name: BERTA SANCHES Rep #:[id number] : 1945 79 From: Yaniv Masters MD Attending Dr: Dr. Dianne Stovall DO Status: ADM IN Ordering Dr: Sheree Simmons Date: 01/07/25 Location: [facility] Sex: F C Admitted: 01/07/25 Test Reason [...] Abnormal ECG Confirmed by SONAM UGARTE, YANIV ([id number]), make up editor ROJELIO TADEO ([id number]) on 01/08/2025 11:01:47 AM Referred By: Confirmed By: YANIV MASTERS MD 01/08/25 1101 Date _ Yaniv Masters MD CC: CHEMICAL RESEARCH TECHNICIAN-Ivett Collazo; Dr. Dianne Stovall, DO; FERNANDO Uriostegui ~ Signed [facility] Work Phone: Eosinophil percentageOrdered By: Radha Heller on 01-08-2025 Eosinophils/100 WBC (Bld) 2.1 % 0-5 [facility] Erythrocyte distribution wid th ratioOrdered By: Radha Heller on 01-08-2025 Erythrocyte distribution width (RBC) [Ratio] 19.8 % High 11.6-14.6 [facility] Erythrocyte distribution wid th standard deviationOrdered By: Radha Heller on 01-08-2025 Erythrocyte distribution width (RBC) [Ratio] 64.7 fl High 35.1-43.9 [facility] Erythrocyte morphology asses smentOrdered By: Radha Heller on 01-08-2025 RBC morphology finding Nom (Bld) NORM C+C NORMAL NORM C&C [facility] Hematocrit Auto (Bld) [Volum e fraction]Ordered By: Radha Heller on 01-08-2025 Hematocrit (Bld) [Volume fraction] 28.4 % Low 37-47 [facility] Hemoglobin A1con 01-08-2025 HbA1c (Bld) [Mass fraction] 7.0 % High <=5.6 [facility] Comment on above: Result Comment: Norm al < 5.7 % Prediabetic 5.7 - 6.4 % Diabetic >or= 6.5 % Please note range changes. Performed By: #### L 501.9985 ####[facility] [address] [place], [place], [id number] Hemoglobin A1c percentageOrd ered By: Carla Barksdale on 01-08-2025 HbA1c (Bld) [Mass fraction] 7.0 % High <5.7 [facility] Comment on above: Normal < 5.7 % Predi abetic 5.7 - 6.4 % Diabetic >or= 6.5 % Please note range changes. Hemoglobin measurementOrdere d By: Radha Heller on 01-08-2025 Hemoglobin (Bld) [Mass/Vol] 9.0 g/dL Low 12.0-15.0 [facility] Immature granulocytes/100 WB C Auto (Bld)Ordered By: Radha Heller on 01-08-2025 Immature granulocytes/100 WBC (Bld) 0.300 % 0.0-0.9 [facility] Comment on above: IG% - Immature Granu locytes (promyelocytes, myelocytes and metamyelocytes) > 1% indicates that a LEFT SHIFT is Present. LDL calc ser/plasOrdered By: Radha Heller on 01-08-2025 Cholesterol in LDL [Mass/Vol] 26 mg/dL [facility] Comment on above: Xuxurbkgfy=076-898 m g/dL & Higher Vyks=338 mg/dL or greater Lipid Profileon 01-08-2025 CHOL:HDL 2.38 Normal [facility] Comment on above: Performed By: #### L 501.5200, L501.9520, L100.0100, L500.2500, L500.4100 ####[facility] [address] [place], [place], [address] Cholesterol [Mass/Vol] 68 mg/dL Normal <=200 [facility] Comment on above: Result Comment: Chol esterol level, Desirable <200 mg/dLBorderline high cholesterol 200-239 mg/dLHigh cholesterol >=240 mg/dLRecommendations of the NCEP Adult Treatment Panel for thefollowing risk-cutoff thresholds for the [place] Americanpulation. Performed By: #### L 501.5200, L501.9520, L100.0100, L500.2500, L500.4100 ####[facility] [address] [place], [address] Cholesterol in HDL [Mass/Vol] 29 mg/dL Low [facility] Comment on above: Result Comment: Ligia onal Cholesterol Education Program (NCEP) guidelines:<40 mg/dL: Low HDL-cholesterol (major risk factor for CHD)>= 60 mg/dL: High HDL-cholesterol (negative risk factor forCHD)HDL-cholesterol is affected by a number of factors, e.g.smoking, exercise, hormones, sex and age. Performed By: #### L 501.5200, L501.9520, L100.0100, L500.2500, L500.4100 ####[facility] [address] [place], [address] Cholesterol in LDL [Mass/Vol] 26 mg/dL Normal [facility] Comment on above: Result Comment: Bord kozzki=014-185 mg/dL Higher Qbif=133 mg/dL or greater Performed By: #### L 501.5200, L501.9520, L100.0100, L500.2500, L500.4100 ####[facility] [address] [place], [address] Cholesterol in VLDL [Mass/Vol] 14 mg/dL Normal 5-40 [facility] Comment on above: Performed By: #### L 501.5200, L501.9520, L100.0100, L500.2500, L500.4100 ####[facility] [address] [place], [address] Triglyceride [Mass/Vol] 69 mg/dL Normal [facility] Comment on above: Result Comment: The drugs N-Acetylcysteine and Metamizole may falselydepress this assay.Normal range: <150 mg/dLBorderline High: 150-199 mg/dLHigh: 200-499 mg/dLVery High: >500 mg/dL Performed By: #### L 501.5200, L501.9520, L100.0100, L500.2500, L500.4100 ####[facility] [address] [facility] [place], [place], [address] MCV (mean corpuscular volume ) determinationOrdered By: Radha Heller on 01-08-2025 MCV (RBC) [Entitic vol] 89.3 fL 81-99 [facility] Magnesiumon 01-08-2025 Magnesium [Mass/Vol] 2.4 mg/dL High 1.5-2.2 [facility] Comment on above: Performed By: #### L 501.5200, L501.9520, L100.0100, L500.2500, L500.4100 ####[facility] [address] [facility] [place], [place], [address] Magnesium measurement (mass/ volume)Ordered By: Radha Heller on 01-08-2025 Magnesium (Unsp spec) [Mass/Vol] 2.4 mg/dL High 1.5-2.2 [facility] Mean corpuscular hemoglobin (MCH) determinationOrdered By: Radha Heller on 01-08-2025 MCH (RBC) [Entitic mass] 28.3 pg 27.0-32.0 [facility] [facility] Mean corpuscular hemoglobin concentration (MCHC) determinationOrdered By: Radha Heller on 01-08-2025 MCHC (RBC) [Mass/Vol] 31.7 g/dL Low 32-36 [facility] Mean platelet volume determi nationOrdered By: Radha Heller on 01-08-2025 Platelet mean volume (Bld) [Entitic vol] 9.6 fL 6.2-12.0 [facility] Monocyte percentageOrdered B y: Radha Heller on 01-08-2025 Monocytes/100 WBC (Bld) 15.5 % High 0-10 [facility] Neutrophil percentageOrdered By: Radha Heller on 01-08-2025 Neutrophils/100 WBC (Bld) 47.3 % 47-70 [facility] Nucleated red blood cell per centageOrdered By: Radha Heller on 01-08-2025 Nucleated RBC/100 WBC (Bld) [Ratio] 0 % 0-5 [facility] Platelet countOrdered By: Fernando Heller on 01-08-2025 Platelets (Bld) [#/Vol] 155 10*3/uL 150-450 [facility] Platelet estimateOrdered By: Radha Heller on 01-08-2025 Platelets LM Ql (Bld) ADEQUATE ADEQ [facility] RBC Auto (Bld) [#/Vol]Ordere d By: Radha Heller on 01-08-2025 RBC (Bld) [#/Vol] 3.18 10*6/uL Low 4.2-5.4 [facility] Screening total cholesterol/ high density lipoprotein (HDL) cholesterol ratioOrdered By: Radha Heller on 01-08-2025 Cholesterol.total/Gin sterol in HDL [Mass ratio] 2.38 {ratio} [facility] Serum or plasma cholesterol in HDL measurement (mass/volume)Ordered By: Radha Heller on 01-08-2025 Cholesterol in HDL [Mass/Vol] 29 mg/dL Low >40 [facility] Comment on above: National Cholesterol Education Program (NCEP) guidelines:<40 mg/dL: Low HDL-cholesterol (major risk factor for CHD)>= 60 mg/dL: High HDL-cholesterol (negative risk factor for CHD)HDL-cholesterol is affected by a number of factors, e.g. smoking, exercise, hormones, sex and age. Serum or plasma cholesterol measurement (mass/volume)Ordered By: Radha Heller on 01-08-2025 Cholesterol [Mass/Vol] 68 mg/dL <201 [facility] Comment on above: Cholesterol level, D esirable <200 mg/dLBorderline high cholesterol 200-239 mg/dLHigh cholesterol >=240 mg/dLRecommendations of the NCEP Adult Treatment Panel for the following risk-cutoff thresholds for the [place] population. TSH DL <= 0.005 mIU/L QnOrde red By: Radha Heller on 01-08-2025 TSH Qn 4.850 uIU/mL High 0.300-4.200 [facility] Thyroid Stim Hormone (TSH)on 01-08-2025 TSH 4.850 uIU/mL High 0.300-4.200 [facility] Comment on above: Performed By: #### L 501.5200, L501.9520, L100.0100, L500.2500, L500.4100 ####[facility] [address] [place], [address] Triglycerides measurementOrd ered By: Radha Heller on 01-08-2025 Triglyceride [Mass/Vol] 69 mg/dL <199 [facility] Comment on above: The drugs N-Acetylcy steine and Metamizole may falsely depress this assay. Normal range: <150 mg/dLBorderline High: 150-199 mg/dLHigh: 200-499 mg/dLVery High: >500 mg/dL White blood cell (WBC) count Ordered By: Radha Heller on 01-08-2025 WBC (Bld) [#/Vol] 6.3 10*3/uL 4.4-11.0 [facility] 12 Lead EKGon 01-07-2025 12 Lead EKG Normal [facility] Absolute lymphocyte countOrd ered By: ED PROVIDER on 01-07-2025 Lymphocytes Auto (Unsp spec) [#/Vol] 1.52 10*3/uL 0.83-4.51 [facility] Absolute neutrophil countOrd ered By: ED PROVIDER on 01-07-2025 Neutrophils (Bld) [#/Vol] 3.8 10*3/uL 2.0-7.7 [facility] Anion gap in Serum or Plasma Ordered By: ED PROVIDER on 01-07-2025 Anion gap [Moles/Vol] 15 mmol/L 5-15 [facility] Automated lymphocyte count a s percentage of total leukocytesOrdered By: ED PROVIDER on 01-07-2025 Lymphocytes/100 WBC Auto (Unsp spec) 24.2 % 19-41 [facility] BUN/creatinine ratioOrdered By: ED PROVIDER on 01-07-2025 Urea nitrogen/Creatinine [Mass ratio] 26.4 mg/mg High 10-20 [facility] Basic Metabolic Profile (BMP )on 01-07-2025 BUN/CRE 26.4 RATIO High 10-20 [facility] Comment on above: Performed By: #### L 500.2500, L100.0100 ####[facility] [address] [place], [address] ECRCL 24.26 ml/min Low 50-250 [facility] Comment on above: Performed By: #### L 500.2500, L100.0100 ####[facility] [address] [place], [address] GAP 15 Normal 5-15 [facility] Comment on above: Performed By: #### L 500.2500, L100.0100 ####[facility] [address] [place], [address] Potassium [Moles/Vol] 4.2 mmol/L Normal 3.3-5.1 [facility] Comment on above: Performed By: #### L 500.2500, L100.0100 ####[facility] [address] [place], [address] Basophil percentageOrdered B y: ED PROVIDER on 01-07-2025 Basophils/100 WBC (Bld) 1.0 % 0-1 [facility] Bedside Glucoseon 01-07-2025 FINGERSTICK GLU 166 mg/dL High 74-106 [facility] Comment on above: Result Comment: JOHNSON MCCORMACK OF PATIENT CARE PER NURSING PROTOCOL Performed By: #### L 501.080 ####[facility] [address] [place], [address] FINGERSTICK GLU 104 mg/dL Normal 74-106 [facility] Comment on above: Result Comment: JOHNSON ANDUJARENT OF PATIENT CARE PER NURSING PROTOCOL Performed By: #### L 501.080 ####[facility] [address] [place], [address] CBC W/Diff, AutomatedOrdered By: ED PROVIDER on 01-07-2025 Anisocytosis Ql (Bld) 1+ Normal [facility] Comment on above: Performed By: #### L 500.2500, L100.0100 ####[facility] [address] [place], [address] Carbon dioxide, total [Moles /volume] in Central venous bloodOrdered By: ED PROVIDER on 01-07-2025 CO2 [Moles/Vol] 23.9 mmol/L Normal 21.0-32.0 [facility] Comment on above: Performed By: #### L 500.2500, L100.0100 ####[facility] [address] [place], [address] Chest PA and Lateralon 01-07 Chest PA and Lateral Normal [facility] Chloride assayOrdered By: ED PROVIDER on 01-07-2025 Chloride [Moles/Vol] 91 mmol/L Low 98-108 [facility] Comment on above: Performed By: #### L 500.2500, L100.0100 ####[facility] [address] [place], [address] Echo Completeon 01-07-2025 Echo Complete Normal [facility] Emergency Department Summary on 01-07-2025 Emergency Department Summary Normal [facility] Eosinophil percentageOrdered By: ED PROVIDER on 01-07-2025 Eosinophils/100 WBC (Bld) 1.8 % 0-5 [facility] Erythrocyte distribution wid th ratioOrdered By: ED PROVIDER on 01-07-2025 Erythrocyte distribution width (RBC) [Ratio] 19.9 % High 11.6-14.6 [facility] Erythrocyte distribution wid th standard deviationOrdered By: ED PROVIDER on 01-07-2025 Erythrocyte distribution width (RBC) [Ratio] 65.6 fl High 35.1-43.9 [facility] Glomerular filtration rate ( GFR) estimation/1.73 sq m using serum, plasma, or whole bOrdered By: ED PROVIDER on 01-07-2025 GFR/1.73 sq M.predicted among non-blacks MDRD (S/P/Bld) [Vol rate/Area] 29 mL/min/{1.73_m2} Low >60 [facility] Comment on above: mL/min/1.73m2 CKD-EP I Creatinine Equation (2020) Result Comment: mL/m in/1.73m2 CKD-EPI Creatinine Equation (2020) Performed By: #### L 500.2500, L100.0100 ####[facility] [address] [place], [address] H AND P Exam - Hospitaliston 01-07-2025 H&P Exam - Hospitalist Normal [facility] Hematocrit Auto (Bld) [Volum e fraction]Ordered By: ED PROVIDER on 01-07-2025 Hematocrit (Bld) [Volume fraction] 29.6 % Low 37-47 [facility] Hemoglobin measurementOrdere d By: ED PROVIDER on 01-07-2025 Hemoglobin (Bld) [Mass/Vol] 9.4 g/dL Low 12.0-15.0 [facility] Immature granulocytes/100 WB C Auto (Bld)Ordered By: ED PROVIDER on 01-07-2025 Immature granulocytes/100 WBC (Bld) 0.300 % 0.0-0.9 [facility] Comment on above: IG% - Immature Granu locytes (promyelocytes, myelocytes and metamyelocytes) > 1% indicates that a LEFT SHIFT is Present. L499.0042on 01-07-2025 Trop T High Sen 68 ng/L Invalid Interpretation Code <=14 [facility] Comment on above: Result Comment: Crit ical Result(s) Called at: 01/07/2025-15:45 by: Francisco J Carrera.??Results read back by same. Performed By: #### L 499.0042 ####[facility] [address] [place], [address] L501.4021on 01-07-2025 Trop T High Sen 71 ng/L Invalid Interpretation Code <=14 [facility] Comment on above: Result Comment: Crit ical Result(s) Called at: 01/07/2025-13:48 by: Andreea.??Results read back by same. Performed By: #### L 501.4021, L548.9784 ####[facility] [address] [place], [place], [address] L503.7505on 01-07-2025 Natriuretic peptide B (Bld) [Mass/Vol] 42311 pg/mL High <=1800 [facility] Comment on above: Result Comment: Hear t Failure Unlikely: < 300 pg/mLHeart Failure Likely< 50 Years: > 450 pg/mL50-75 Years: > 900 pg/mL>75 Years: > 1800 pg/mL Performed By: #### L 501.402, L503.7500 ####[facility] [address] [place], [place], [id number] MCV (mean corpuscular volume ) determinationOrdered By: ED PROVIDER on 01-07-2025 MCV (RBC) [Entitic vol] 90.0 fL 81-99 [facility] Mean corpuscular hemoglobin (MCH) determinationOrdered By: ED PROVIDER on 01-07-2025 MCH (RBC) [Entitic mass] 28.6 pg 27.0-32.0 [facility] Mean corpuscular hemoglobin concentration (MCHC) determinationOrdered By: ED PROVIDER on 01-07-2025 MCHC (RBC) [Mass/Vol] 31.8 g/dL Low 32-36 [facility] Mean platelet volume determi nationOrdered By: ED PROVIDER on 01-07-2025 Platelet mean volume (Bld) [Entitic vol] 9.6 fL 6.2-12.0 [facility] Monocyte percentageOrdered B y: ED PROVIDER on 01-07-2025 Monocytes/100 WBC (Bld) 12.9 % High 0-10 [facility] Natriuretic peptide.B prohor daria N-Terminal [Mass/volume] in Serum or PlasmaOrdered By: Sheree Simmons on 01-07-2025 Natriuretic peptide.B prohormone N-Terminal [Mass/Vol] 10761 pg/mL High <1800 [facility] Comment on above: Heart Failure Unlike ly: < 300 pg/mLHeart Failure Likely< 50 Years: > 450 pg/mL50-75 Years: > 900 pg/mL>75 Years: > 1800 pg/mL Neutrophil percentageOrdered By: ED PROVIDER on 01-07-2025 Neutrophils/100 WBC (Bld) 59.8 % 47-70 [facility] No Panel InformationOrdered By: ED PROVIDER on 01-07-2025 1+ [facility] Nucleated red blood cell per centageOrdered By: ED PROVIDER on 01-07-2025 Nucleated RBC/100 WBC (Bld) [Ratio] 0 % 0-5 [facility] Platelet countOrdered By: ED PROVIDER on 01-07-2025 Platelets (Bld) [#/Vol] 165 10*3/uL 150-450 [facility] Potassium measurement (mass/ volume)Ordered By: ED PROVIDER on 01-07-2025 Potassium (Unsp spec) [Mass/Vol] 4.2 mmol/L 3.3-5.1 [facility] RBC Auto (Bld) [#/Vol]Ordere d By: ED PROVIDER on 01-07-2025 RBC (Bld) [#/Vol] 3.29 10*6/uL Low 4.2-5.4 [facility] STROKE Brain/Head without Co nton 01-07-2025 STROKE Brain/Head without Cont Normal [facility] STROKE CTA Head AND Neck W/C onon 01-07-2025 STROKE CTA Head AND Neck W/Con Normal [facility] Serum creatinine measurement (mass/volume)Ordered By: ED PROVIDER on 01-07-2025 Creatinine [Mass/Vol] 1.77 mg/dL High 0.70-1.20 [facility] Comment on above: Performed By: #### L 500.2500, L100.0100 ####[facility] [address] [place], [place], [address] Serum glucose measurement (m ass/volume)Ordered By: ED PROVIDER on 01-07-2025 Glucose [Mass/Vol] 194 mg/dL High 70-99 [facility] Comment on above: Performed By: #### L 500.2500, L100.0100 ####[facility] [address] [place], [address] Serum or plasma calcium bijan urement (mass/volume)Ordered By: ED PROVIDER on 01-07-2025 Calcium [Mass/Vol] 8.8 mg/dL Normal 7.6-11.0 [facility] Comment on above: Performed By: #### L 500.2500, L100.0100 ####[facility] [address] [place], [address] Serum or plasma urea nitroge n measurement (mass/volume)Ordered By: ED PROVIDER on 01-07-2025 Urea nitrogen [Mass/Vol] 47 mg/dL High 4-19 [facility] Comment on above: Performed By: #### L 500.2500, L100.0100 ####[facility] [address] [place], [address] Sodium levelOrdered By: ED Yue AUSTIN on 01-07-2025 Sodium [Moles/Vol] 129 mmol/L Low 133-145 [facility] Comment on above: Performed By: #### L 500.2500, L100.0100 ####[facility] [address] [place], [address] Troponin T.cardiac [Mass/vol ume] in Serum or Plasma by High sensitivity methodOrdered By: Sheree Simmons on 01-07-2025 Troponin T.cardiac High sensitivity method [Mass/Vol] 68 ng/L Critically high <14 [facility] Comment on above: Critical Result(s) C alled at: 01/07/2025-15:45 by: Tai Carrera. Results read back by same. Troponin T.cardiac High sensitivity method [Mass/Vol] 71 ng/L Critically high <14 [facility] Comment on above: Critical Result(s) C alled at: 01/07/2025-13:48 by: Danika Blanchard. Results read back by same. White blood cell (WBC) count Ordered By: ED PROVIDER on 01-07-2025 WBC (Bld) [#/Vol] 6.3 10*3/uL 4.4-11.0 [facility] CNOVon 01-01-2025 CNOV Office Visit (CARDWS ) BERTA SANCHES ([id number]) 1945 [place] Time Provider Department 01/01/25 11:00 AM CARLA BURDICK During your visit today, we recorded the following information about you: Pulse Respiration Blood pressure Weight 84/minute 18/minute 156/60 67.4 kg Height 1.575 m Carla Burdick MD 01/01/2025 12:27 PM Signed [facility] SE[facility]IONAL CARDIOLOGY Cardiology ([facility]) [address] [facility] [phone] OUTPATIENT VISIT DATE 01/01/2025 PRIMARY CARE PHYSICIAN: Doreen Le [address] [place] [address] HISTORY OF PRESENT ILLNESS: Ms. Sanches is a 79 year old woman with a history of remote aortic valve replacement with homograft in 1996 and possible repair of the ascending aorta, chronic diastolic congestive heart failure, hypertension, dyslipidemia, atrial fibrillation with history of pulmonary vein isolation procedures, pacemaker placement and watchman procedure who presents for follow-up. Patient was admitted to [facility]. She was discharged after 2 [...] Pacemaker 10/21/[address] TRELL BARTLETT [id number] pulse generator, his bundle lead, right atrial lead Peripheral arterial disease Rheumatic fever Steatosis, liver 03/26/2014 fatty liver on US. 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 Lua PACEMAKER 10/2019 PART. HYSTERECTOMY W/WO RMVL OVARIES/TUBES 1973 h/o cervical cancer ovaries remain PAST SURGICAL HISTORY OF 1996 Aortic valve repair, Dr. Apodaca PAST SURGICAL HISTORY OF 2001 [address] Beltrán, [facility] PAST SURGICAL HISTORY OF 2015 [...] and 1 (more content not included)... [facility] BERTA SANCHES ([id number]) 1945 [facility] Date Time Provider Department 12/26/24 ALBIN GU [facility] During your visit today, we recorded the following information about you: Albin Gu APRN.JASPREET 12/26/2024 9:45 AM Signed Patient called to [...] 02/26/2014 03/21/2022 Intracranial aneurysm [I67.1] 08/30/2015 10/05/2022 nursing home current use of antiarrhythmic medical*10/20/2016 09/12/2021 [...] anemia [D50.9] more content not included)... [facility] ([facility] ) TAMERA SANCHESRA Manzanares ([id number]) 1945 [facility] Date Time Provider Department 12/20/24 8:45 AM LARS SILVA During your visit today, we recorded the following information about you: Pulse Blood pressure Weight 77/minute 154/75 67.4 kg Lars Silva DO 12/20/2024 5:56 PM Signed [facility] [place] DEPARTMENT OF VASCULAR SURGERY OUTPATIENT VISIT DATE December 20, 2024 OUTPATIENT VISIT TYPE ESTABLISHED SERVICE DATE: 12/20/2024 SERVICE TIME: 8:53 AM PRIMARY CARE PHYSICIAN: Deysi Collazo APRN.[employer] HISTORY OF PRESENT ILLNESS: Ms. Sanches is a 79 year old female who presents today for a vascular surgery follow-up visit follow up on mesenteric duplex. She recently increased her lasix at the CHF clinic. She had a stent placed in [place] in September. She was recently admitted to [place] for anemia. She has noted increased swelling. [...] Pacemaker 10/21/[address] TRELL BARTLETT [id number] pulse generator, his bundle lead, right atrial lead Peripheral arterial disease Rheumatic fever Steatosis, liver 03/26/2014 fatty liver on US. 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 Lua PACEMAKER 10/2019 PART. HYSTERECTOMY W/WO RMVL OVARIES/TUBES 1973 h/o cervical cancer ovaries remain PAST SURGICAL HISTORY OF 1996 Aortic valve repair, Dr. Apodaca PAST SURGICAL HISTORY OF 2001 [address] Beltrán, [facility] PAST SURGICAL HISTORY OF 2015 [...] sugar (more content not included)... Normal [facility] MESENTERIC ARTERY CMPLT V LABon 12-20-2024 MESENTERIC ARTERY CMPLT VAS LAB Non-Invasive Vascular Laboratory [facility] Renal or Mesenteric Duplex [...] Unable to visualize. Technologist: Chantell Ferrari RVT, [facility] Ordering physician: LARS SILVA Interpreting physician: Terrance Oseguera MD, BIJAN Final CC [facility] Image : [id number] See Link below for Image Normal [facility] CNOVon 12-19-2024 [facility] BERTA SANCHES ([id number]) 1945 [place] Date Time Provider Department 12/19/24 11:00 AM ALBIN GU [facility] During your visit today, we recorded [...] or concern, you can call me at [phone]. Albin Gu APRN.CNP 12/19/2024 11:45 AM Signed [facility] [place] [facility] OUTPATIENT VISIT DATE December 18, 2024 OUTPATIENT VISIT TYPE ESTABLISHED PRIMARY CARE PHYSICIAN: Deysi Collazo APRN.CNP CHIEF COMPLAINT: No chief complaint on file. HISTORY OF PRESENT ILLNESS: Berat Sanches is a 79 year old female [...] and was worried about traveling home to [place] in a few days. Discussed with her taking lasix as it was prescribed. As her spironolactone was stopped, did advise patient restart this at 25 mg once a day for four days only. She was instructed to call office in a week to review symptoms. On 10/15, patient presented back to [facility] for gastrointestinal bleed. She had a colonoscopy [...] and entresto. The patient wished to leave [place] so she could return to [place]. Cardiology and Pulmonary agreed with discharge. Patient [...] Hospital disch (more content not included)... Normal [facility] 12-13-2024 [facility] Telephone ([facility]) BERTA SANCHES ([id number]) 1945 [facility] Date Time Provider Department 12/13/24 DEYSI COLLAZO [facility] During your visit today, we recorded the following information about you: Alex Gonzalez 12/13/2024 9:36 AM Signed Transitional Care Management (TCM) [facility] Monitoring Program Provider Action / FYI: N/A SUMMARY: Outreach type: INITIAL OUTREACH Discharge Network Status: In-Network Discharge Source of Patient: [facility] TCM Discharge Report Patient discharged from [facility] on December 12. Admitted for Acute on [...] 02/26/2014 03/21/2022 Intracranial aneurysm [I67.1] 08/30/2015 10/05/2022 nursing home current use of antiarrhythmic medical*10/20/2016 09/12/2021 [...] [C64.9] 04 (more content not included)... Normal [facility] Basic metabolic 2000 panelon 12-12-2024 Anion gap [Moles/Vol] 12 mmol/L Normal 8-15 [facility] Comment on above: Order Comment: Speci men Type: BLOOD SPECIMEN Ordering Facility: [facility] Address: [address] [place] [address] Performed By: #### 1 9123-9, 34174-2 #### [facility] CLIA [id number] [address] [place] [address] [place] Calcium [Mass/Vol] 8.8 mg/dL Normal 8.5-10.2 [facility] Comment on above: Order Comment: Speci men Type: BLOOD SPECIMEN Ordering Facility: [facility] Address: [address] [place] [address] Performed By: #### 1 9123-9, 11606-3 #### [facility] CLIA [id number] [address] [place] [address] [place] Chloride [Moles/Vol] 96 mmol/L Low 98-107 [facility] Comment on above: Order Comment: Speci men Type: BLOOD SPECIMEN Ordering Facility: [facility] Address: [address] [place] [address] Performed By: #### 1 9123-9, 65824-2 #### [facility] CLIA [id number] [address] [place] [address] [place] CO2 [Moles/Vol] 26 mmol/L Normal 22-30 [facility] Comment on above: Order Comment: Speci men Type: BLOOD SPECIMEN Ordering Facility: [facility] Address: [address] [place] [address] Performed By: #### 1 9123-9, 97628-4 #### [facility] CLIA [id number] [address] STATES OF [facility] Creatinine [Mass/Vol] 1.69 mg/dL High 0.58-0.96 [facility] Comment on above: Order Comment: Annie ricci Type: BLOOD SPECIMEN Ordering Facility: [facility] Address: [address] [place] [address] Performed By: #### 1 9123-9, 46805-5 #### [facility] CLIA [id number] [address] Creatinine and Glomerular filtration rate.predicted panel (S/P/Bld) 31 mL/min/1.73m??? Low >=60 [facility] Comment on above: Order Comment: Annie ricci Type: BLOOD SPECIMEN Ordering Facility: [facility] Address: [address] [place] [address] Result Comment: Mira mated Glomerular Filtration Rate [...] actual GFR. Performed By: #### 1 9123-9, 49129-0 #### [facility] CLIA [id number] [address] [place] Glucose [Mass/Vol] 170 mg/dL High 74-99 [facility] Comment on above: Order Comment: Annie keiry Type: BLOOD SPECIMEN Ordering Facility: [facility] Address: [address] [place] [address] Result Comment: The [place] Diabetes Association (ADA) provides guidance for cutoff [...] Standards of Medical Care in Diabetes 2016, [place] Diabetes Association. Diabetes Care. 2016.39(Suppl 1). Performed By: #### 1 9123-9, 16708-3 #### [facility] CLIA [id number] [address] STATES OF [facility] Potassium [Moles/Vol] 4.1 mmol/L Normal 3.7-5.1 [facility] Comment on above: Order Comment: Annie ricci Type: BLOOD SPECIMEN Ordering Facility: [facility] Address: [address] [place] [address] Performed By: #### 1 9123-9, 44157-0 #### [facility] CLIA [id number] [address] Sodium [Moles/Vol] 134 mmol/L Low 136-144 [facility] Comment on above: Order Comment: Annie ricci Type: BLOOD SPECIMEN [facility]ing Facility: [facility] Address: [address] [place] [address] Performed By: #### 1 9123-9, 88491-8 #### [facility] CLIA [id number] [address] STATES [facility] Urea nitrogen [Mass/Vol] 47 mg/dL High 7-21 [facility] Comment on above: Order Comment: Annie ricci Type: BLOOD SPECIMEN Ordering Facility: [facility] Address: [address] [place] [address] Performed By: #### 1 9123-9, 70432-0 #### [facility] CLIA [id number] [address] [place] CBC panel Auto (Bld)on 12-12 Erythrocyte distribution width (RBC) [Ratio] 15.9 % High 11.5-15.0 [facility] Comment on above: Order Comment: Annie ricci Type: BLOOD SPECIMEN [facility]ing Facility: [facility] Address: [address] [place] [address] Performed By: #### 5 8410-2 #### [facility] CLIA [id number] [address] [place] Hematocrit (Bld) [Volume fraction] 25.0 % Low 36.0-46.0 [facility] Comment on above: Order Comment: Speci men Type: BLOOD SPECIMEN [facility] Facility: [facility] Address: [address] [place] [address] Performed By: #### 5 8410-2 #### [facility] CLIA [id number] [address] [place] Hemoglobin (Bld) [Mass/Vol] 8.0 g/dL Low 11.5-15.5 [facility] Comment on above: Order Comment: Speci men Type: BLOOD SPECIMEN [facility] Facility: [facility] Address: [address] [place] [address] Performed By: #### 5 8410-2 #### [facility] CLIA [id number] [address] OF [facility] MCH (RBC) [Entitic mass] 28.6 pg Normal 26.0-34.0 [facility] Comment on above: Order Comment: Speci men Type: BLOOD SPECIMEN [facility]ing Facility: [facility] Address: [address] [place] [address] Performed By: #### 5 8410-2 #### [facility] CLIA [id number] [address] OF [place] MCHC (RBC) [Mass/Vol] 32.0 g/dL Normal 30.5-36.0 [facility] Comment on above: Order Comment: Speci men Type: BLOOD SPECIMEN [facility] Facility: [facility] Address: [address] [place] [address] Performed By: #### 5 8410-2 #### [facility] CLIA [id number] [address] MCV (RBC) [Entitic vol] 89.3 fL Normal 80.0-100.0 [facility] Comment on above: Order Comment: Speci men Type: BLOOD SPECIMEN [facility]ing Facility: [facility] Address: [address] [place] [address] Performed By: #### 5 8410-2 #### [facility] CLIA [id number] [address] [place] Nucleated RBC (Bld) [#/Vol] 10*3/uL Normal <0.01 [facility] Comment on above: Order Comment: Speci men Type: BLOOD SPECIMEN [facility]ing Facility: [facility] Address: [address] [place] [address] Performed By: #### 5 8410-2 #### [facility] CLIA [id number] [address] OF [place] Platelet mean volume (Bld) [Entitic vol] 9.9 fL Normal 9.0-12.7 [facility] Comment on above: Order Comment: Speci men Type: BLOOD SPECIMEN [facility]ing Facility: [facility] Address: [address] [place] [address] Performed By: #### 5 8410-2 #### [facility] CLIA [id number] [address] [place] Platelets (Bld) [#/Vol] 148 10*3/uL Low 150-400 [facility] Comment on above: Order Comment: Speci men Type: BLOOD SPECIMEN [facility]ing Facility: [facility] Address: [address] [place] [address] Performed By: #### 5 8410-2 #### [facility] CLIA [id number] [address] STATES [place] RBC (Bld) [#/Vol] 2.80 10*6/uL Low 3.90-5.20 [facility] Comment on above: Order Comment: Speci men Type: BLOOD SPECIMEN [facility] Facility: [facility] Address: [address] [place] [address] Performed By: #### 5 8410-2 #### [facility] CLIA [id number] [address] [place] WBC (Bld) [#/Vol] 9.29 10*3/uL Normal 3.70-11.00 [facility] Comment on above: Order Comment: Speci men Type: BLOOD SPECIMEN [facility]ing Facility: [facility] Address: [address] [place] [address] Performed By: #### 5 8410-2 #### [facility] CLIA [id number] [address] [place] [address] [facility] CNDSon 12-12-2024 CNDS HNO ID: [id number] Author: JUAN DIEGO KNOWLES MD Service: Hospital [...] Knowles MD Primary Care Provider: Deysi Collazo APRN.[employer] MENDER My Medical Team Members: Treatment Team: Attending Provider: Juan Diego Knowles MD Consulting: Betsy Hall MD Consulting: Hemant Jimenez MD Consulting: Lars Silva, MY CONDITION AT DISCHARGE: Stable REASON I WAS IN THE HOSPITAL: Fluid overload that improved with diuretics. You also have anemia related to taking correction blood thinners and you got better with iron. 1. Take a higher dose of torsemide and follow up with a endodontic assistant and our CHF clinic to guide your [...] Surgery placed. Wednesday-Wednesday after 9 am, call studio control operator at [phone] and ask for the appointment line [...] ischemic colitis s/p SMA stenting 09/2024 in [facility], hx of AVR, CKD3. Patient presenting with [...] results. FOLLOW-UP APPOINTMENTS ALREADY SCHEDULED WITH A [facility] PROVIDER: Future Appointments Date Time Provider Department Center 12/21/2024 9:00 AM Albin Gu APRN.JASPREET [facility] 01/01/2025 11:00 AM Carla Burdick MD CARDWS [facility] 01/10/2025 1:00 PM Deysi Collazo APRN.JASPREET [facility] 02/26/2025 2:20 PM Carla Burdick MD CARDBUCKY [employer] ALLERGIES Allergen Reactions Protamine Anaphylaxis Had acute [...] how you (more content not included)... Normal [facility] CONSULT PROGon 12-12-2024 CONSULT PROG HNO ID: [id number] Author: BETSY HALL MD Service: Nephrology Author [...] urine creatinine (more content not included)... Normal [facility] Magnesium [Mass/Vol] 2.0 mg/dL Normal 1.7-2.3 [facility] Comment on above: Order Comment: Annie ricci Type: BLOOD SPECIMEN [facility] Facility: [facility] Address: [address] [place] [address] Performed By: #### 1 9123-9, 98878-0 #### [facility] CLIA [id number] [address] ALBUMIN/CREATININE RATIO, UR INEon 12-11-2024 Albumin DL <= 20 mg/L (U) [Mass/Vol] 23.5 mg/L Normal [facility] Comment on above: Order Comment: Annie ricci Type: BLOOD SPECIMEN [facility] Facility: [facility] Address: [address] [place] [address] Performed By: #### 2 132-9, 8 #### [facility] CLIA [id number] [address] Albumin/Creatinine (U) [Mass ratio] 76 mg/g High <30 [facility] Comment on above: Order Comment: Annie ricci Type: BLOOD SPECIMEN [facility]ing Facility: [facility] Address: [address] [place] [address] Result Comment: Adul t Male and Female Nephrotic Criteria: <30 mg/g is considered normal to mildly increased 30-300 mg/g is considered moderately increased >300 mg/g is considered severely increased KDIGO. (2013). KDIGO 2012 Clinical Practice Guideline for the Evaluation and Management of Chronic Kidney Disease. Official Journal of the International Society of Nephrology, 3(1), 1-150. Performed By: #### 2 132-9, 8 #### [facility] CLIA [id number] [address] ALLIED HEALTHon 12-11-2024 ALLIED HEALTH HNO ID: [id number] Author: NUNU CHATMAN RDMS Service: ? Author [...] PATIENT PRESENTS WITH AN IMPLANTABLE OR ATTACHED AIRCRAFT MAGNETO MECHANIC: N/A RADIOLOGY DEPARTMENT: Ultrasound PERIPHERAL IV DATA: Not applicable SIGNED BY: Nunu Chatman RDMS December 11, 2024 9:14 AM Normal [facility] Basic metabolic 2000 panelon 12-11-2024 Anion gap [Moles/Vol] 13 mmol/L Normal 8-15 [facility] Comment on above: Order Comment: Annie ricci Type: BLOOD SPECIMEN [facility] Facility: [facility] Address: [address] [place] [address] Performed By: #### 2 276-4, 40386-5, 78634-6, #### [facility] CLIA [id number] [address] [place] [address] [place] Calcium [Mass/Vol] 8.9 mg/dL Normal 8.5-10.2 [facility] Comment on above: Order Comment: Annie ricci Type: BLOOD SPECIMEN [facility]ing Facility: [facility] Address: [address] [place] [address] Performed By: #### 2 276-4, 21910-7, 94814-4, 34372-3 #### [facility] CLIA [id number] [address] [place] [address] [place] Chloride [Moles/Vol] 93 mmol/L Low 98-107 [facility] Comment on above: Order Comment: Annie ricci Type: BLOOD SPECIMEN Ordering Facility: [facility] Address: [address] [place] [address] Performed By: #### 2 276-4, 55274-7, 12654-2, 33452-2 #### [facility] CLIA [id number] [address] [place] [address] [place] CO2 [Moles/Vol] 24 mmol/L Normal 22-30 [facility] Comment on above: Order Comment: Annie ricci Type: BLOOD SPECIMEN [facility] Facility: [facility] Address: [address] [place] [address] Performed By: #### 2 276-4, 52676-7, 85943-2, 27200-0 #### [facility] CLIA [id number] [address] [place] [address] [place] Creatinine [Mass/Vol] 1.70 mg/dL High 0.58-0.96 [facility] Comment on above: Order Comment: Annie ricci Type: BLOOD SPECIMEN Ordering Facility: [facility] Address: [address] [place] [address] Performed By: #### 2 276-4, 15185-8, 71784-3, 45834-6 #### [facility] CLIA [id number] [address] Creatinine and Glomerular filtration rate.predicted panel (S/P/Bld) 30 mL/min/1.73m??? Low >=60 [facility] Comment on above: Order Comment: Annie ricci Type: BLOOD SPECIMEN Ordering Facility: [facility] Address: [address] [place] [address] Result Comment: Mira mated Glomerular Filtration Rate [...] actual GFR. Performed By: #### 2 276-4, 22143-5, 78235-9, 06298-5 #### [facility] CLIA [id number] [address] [place] Glucose [Mass/Vol] 144 mg/dL High 74-99 [facility] Comment on above: Order Comment: Annie ricci Type: BLOOD SPECIMEN Ordering Facility: [facility] Address: [address] [place] [address] Result Comment: The [place] Diabetes Association (ADA) provides guidance for cutoff [...] Standards of Medical Care in Diabetes 2016, [place] Diabetes Association. Diabetes Care. 2016.39(Suppl 1). Performed By: #### 2 276-4, 11681-8, 69407-7, 57606-4 #### [facility] CLIA [id number] [address] [place] [address] [place] Potassium [Moles/Vol] 3.6 mmol/L Low 3.7-5.1 [facility] Comment on above: Order Comment: Annie ricci Type: BLOOD SPECIMEN Ordering Facility: [facility] Address: [address] [place] [address] Performed By: #### 2 276-4, 97577-9, 74806-4, 66543-4 #### [facility] CLIA [id number] [address] [place] [address] [place] Sodium [Moles/Vol] 130 mmol/L Low 136-144 [facility] Comment on above: Order Comment: Annie ricci Type: BLOOD SPECIMEN Ordering Facility: [facility] Address: [address] [place] [address] Performed By: #### 2 276-4, 96159-0, 31424-3, 55578-2 #### [facility] CLIA [id number] [address] [place] [address] [place] Urea nitrogen [Mass/Vol] 54 mg/dL High 7-21 [facility] Comment on above: Order Comment: Annie ricci Type: BLOOD SPECIMEN Ordering Facility: [facility] Address: [address] [place] [address] Performed By: #### 2 276-4, 30208-8, 33551-1, 48700-6 #### [facility] CLIA [id number] [address] CBC panel Auto (Bld)on 12-11 Erythrocyte distribution width (RBC) [Ratio] 16.1 % High 11.5-15.0 [facility] Comment on above: Order Comment: Speci men Type: BLOOD SPECIMEN Ordering Facility: [facility] Address: [address] [place] [address] Performed By: #### 2 132-9, 2283-8 #### [facility] CLIA [id number] [address] Hematocrit (Bld) [Volume fraction] 23.8 % Low 36.0-46.0 [facility] Comment on above: Order Comment: Speci men Type: BLOOD SPECIMEN [facility] Facility: [facility] Address: [address] [place] [address] Performed By: #### 2 132-9, 8 #### [facility] CLIA [id number] [address] Hemoglobin (Bld) [Mass/Vol] 7.6 g/dL Low 11.5-15.5 [facility] Comment on above: Order Comment: Speci men Type: BLOOD SPECIMEN [facility]ing Facility: [facility] Address: [address] [place] [address] Performed By: #### 2 132-9, 8 #### [facility] CLIA [id number] [address] MCH (RBC) [Entitic mass] 28.4 pg Normal 26.0-34.0 [facility] Comment on above: Order Comment: Speci men Type: BLOOD SPECIMEN [facility] Facility: [facility] Address: [address] [place] [address] Performed By: #### 2 132-9, 2283-8 #### [facility] CLIA [id number] [address] MCHC (RBC) [Mass/Vol] 31.9 g/dL Normal 30.5-36.0 [facility] Comment on above: Order Comment: Speci men Type: BLOOD SPECIMEN [facility] Facility: [facility] Address: [address] [place] [address] Performed By: #### 2 132-9, 8 #### [facility] CLIA [id number] [address] [place] MCV (RBC) [Entitic vol] 88.8 fL Normal 80.0-100.0 [facility] Comment on above: Order Comment: Speci men Type: BLOOD SPECIMEN [facility] Facility: [facility] Address: [address] [place] [address] Performed By: #### 2 132-9, 8 #### [facility] CLIA [id number] [address] [place] [address] [place] Nucleated RBC (Bld) [#/Vol] 10*3/uL Normal <0.01 [facility] Comment on above: Order Comment: Speci men Type: BLOOD SPECIMEN [facility] Facility: [facility] Address: [address] [place] [address] Performed By: #### 2 132-9, 8 #### [facility] CLIA [id number] [address] [place] Platelet mean volume (Bld) [Entitic vol] 9.8 fL Normal 9.0-12.7 [facility] Comment on above: Order Comment: Speci men Type: BLOOD SPECIMEN [facility] Facility: [facility] Address: [address] [place] [address] Performed By: #### 2 132-9, 8 #### [facility] CLIA [id number] [address] [place] [address] [place] Platelets (Bld) [#/Vol] 160 10*3/uL Normal 150-400 [facility] Comment on above: Order Comment: Speci men Type: BLOOD SPECIMEN [facility] Facility: [facility] Address: [address] [place] [address] Performed By: #### 2 132-9, 8 #### [facility] CLIA [id number] [address] [place] [address] [facility] [place] RBC (Bld) [#/Vol] 2.68 10*6/uL Low 3.90-5.20 [facility] Comment on above: Order Comment: Speci men Type: BLOOD SPECIMEN [facility]ing Facility: [facility] Address: [address] [place], [place] [address] Performed By: #### 2 132-9, 2284-8 #### [facility] CLIA [id number] [address] OF [facility] WBC (Bld) [#/Vol] 7.37 10*3/uL Normal 3.70-11.00 [facility] Comment on above: Order Comment: Speci keiry Type: BLOOD SPECIMEN [facility]ing Facility: [facility] Address: [address] [place] [address] Performed By: #### 2 132-9, 2284-8 #### [facility] CLIA [id number] [address] CNPNon 12-11-2024 CNPN Telephone (4CQ) BERTA SANCHES ([id number]) 1945 [facility] Date Time Provider Department 12/11/24 DEYSI COLLAZO 4CQ During your visit today, we recorded the following information about you: Marilyn Cesar 12/11/2024 11:06 AM Signed Patient called to cancel hospital follow up due to re admission yesterday 12/10/2024 Sigifredo Rivera LPN 12/11/2024 11:15 AM Signed Pt re admitted to [facility]. GOPI Hill Christy, APRN.[employer] 12/11/2024 1:06 PM Signed Noted. Deysi Collazo APRN.[employer] Allergies As of Date: 12/11/2024 Noted Allergy [...] 02/26/2014 03/21/2022 Intracranial aneurysm [I67.1] 08/30/2015 10/05/2022 manager terminal current use of antiarrhythmic medical*10/20/2016 09/12/2021 Prosthetic [...] [J90] 03/06 (more content not included)... Normal [facility] CONSULTon 12-11-2024 CONSULT HNO ID: [id number] Author: HEMANT JIMENEZ MD Service: Gastroenterology Author Type: Physician Type: Consults Filed: 12/11/2024 15:46 Note Text: GASTROENTEROLOGY CONSULT NOTE PATIENT NAME: Berta Sanches SERVICE DATE: December 11, 2024 SERVICE TIME: 11:59 AM PRIMARY CARE PHYSICIAN: Deysi Collazo APRN.[employer]ENDER ATTENDING PHYSICIAN:Juan Diego Knowles MD REASON FOR ADMISSION: CHF REASON FOR CONSULTATION:BUSHRA HPI: This is a 79 year old female with a past medical history significant for cervical cancer, brain aneurysm, s/p coiling, bilateral carotid stenosis, afib s/p watchman 2022, D-CHF, SSS S/P pacemaker placement, Hx AVR, CKD3, HTN, DM, GERD, diverticulitis, hx of 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 Mosley MASTOIDECTOMY Right 04/30/2015 cholesteatoma removed, Dr. Lua PACEMAKER 10/2019 PART. HYSTERECTOMY W/WO RMVL OVARIES/TUBES 1974 h/o cervical cancer ovaries remain PAST SURGICAL HISTORY OF 1996 Aortic valve repair, Dr. Apodaca PAST SURGICAL HISTORY OF 2001 [address] Beltrán, [facility] PAST SURGICAL HISTORY OF 2015 [...] , 12/09/2024 t (more content not included)... [facility] CONSULT PROGon 12-11-2024 CONSULT PROG HNO ID: [id number] Author: BETSY HALL MD Service: Nephrology Author [...] kidney ultrasound and renal artery duplex Normal [facility] Creat ?Tm Ur-mCncon 12-12-19 25 Creatinine (U) [Mass/Vol] 31.1 mg/dL Normal 20.0-300.0 [facility] Comment on above: Order Comment: Annie ricci Type: BLOOD SPECIMEN [facility] Facility[facility] Address: [address] [place] [address] Performed By: #### 2 132-9, 2283-8 #### [facility] CLIA [id number] [address] [place] [address] [place] Ferritin SerPl-ncon 2024 Ferritin [Mass/Vol] 36.2 ng/mL Normal 14.7-205.1 [facility] Comment on above: Order Comment: Annie ricci Type: BLOOD SPECIMEN [facility] Facility[facility] Address: [address] [place] [address] Performed By: #### 2 276-4, 14052-0, 17878-7, 91750-1 #### [facility] CLIA [id number] [address] [place] [address] [place] Folate SerPl-ncon 12-12-19 25 Folate [Mass/Vol] 11.3 ng/mL Normal >4.7 [facility] Comment on above: Order Comment: Annie ricci Type: BLOOD SPECIMEN [facility] Facility[facility] Address: [address] [place] [address] Performed By: #### 2 132-9, 4-8 #### [facility] CLIA [id number] [address] [place] [address] [place] Iron and Iron binding capaci ty panelon 12-11-2024 Iron [Mass/Vol] 17 ug/dL Low 41-186 [facility] Comment on above: Order Comment: Speci men Type: BLOOD SPECIMEN [facility] Facility[facility] Address: [address] [place] [address] Performed By: #### 2 132-9, 2283-8 #### [facility] CLIA [id number] [address] [place] Iron binding capacity [Mass/Vol] 416 ug/dL High 232-386 [facility] Comment on above: Order Comment: Speci men Type: BLOOD SPECIMEN [facility] Facility[facility] Address: [address] [place] [address] Performed By: #### 2 132-9, 8 #### [facility] CLIA [id number] [address] Iron/TIBC [Molar ratio] 4.1 % Low 15.0-57.0 [facility] Comment on above: Order Comment: Speci men Type: BLOOD SPECIMEN [facility] Facility: [facility] Address: [address] [place] [address] Performed By: #### 2 132-9, 8 #### [facility] CLIA [id number] [address] OF [facility] Magnesium SerPl-mCncon 12-11 Magnesium [Mass/Vol] 1.8 mg/dL Normal 1.7-2.3 [facility] Comment on above: Order Comment: Speci men Type: BLOOD SPECIMEN [facility] Facility[facility] Address: [address] [place] [address] Performed By: #### 2 276-4, 84656-7, 50333-7, 29187-2 #### [facility] CLIA [id number] [address] [place] NURSING PROGon 12-11-2024 NURSING PROG HNO ID: [id number] Author: BRIANNA BETANCOURT RN Service: Nursing Author Type: Registered Nurse Type: Nursing Progress Note Filed: 12/11/2024 15:17 Note Text: PATIENT EDUCATION HEART FAILURE PATIENT NAME: Berta Sanches PATIENT LOCATION: [place] [address]/[place] [address] 2 SURVIVAL SKILLS: Low Sodium Diet Weight [...] Cardiology Electronically Signed By: Brianna Betancourt Normal [facility] OCCULT BLD EXAM-DIAGon 12-11 OCCULT BLD EXAM-DIAG Positive Abnormal [facility] Comment on above: Performed By: #### 1 9123-9, 39263-6 #### [facility] CLIA [id number] [address] [place] [address] [place] Prot/Creat Uron 12-11-2024 Protein/Creatinine (U) [Mass ratio] 0.26 mg/mg High <0.15 [facility] Comment on above: Order Comment: Speci men Type: BLOOD SPECIMEN [facility] Facility: [facility] Address: [address] [place] [address] Result Comment: Adul t Proteinuria Categories: <0.15 mg/mg is considered normal to mildly increased 0.15 - 0.50 mg/mg is considered moderately increased >0.50 mg/mg is considered severely increased KDIGO. (2013). KDIGO 2012 Clinical Practice Guideline for the Evaluation and Management of Chronic Kidney Disease. Official Journal of the International Society of Nephrology, 3(1), 1-150. Performed By: #### 2 132-9, 2283-8 #### [facility] CLIA [id number] [address] [place] [address] [place] Protein/Creatinine (U) [Mass ratio]on 12-11-2024 Protein (U) [Mass/Vol] 8 mg/dL Normal 0-20 [facility] Comment on above: Order Comment: Annie ricci Type: BLOOD SPECIMEN [facility] Facility[facility] Address: [address] [place] [address] Performed By: #### 2 132-9, 2284-02 #### [facility] CLIA [id number] [address] [place] [address] [place] Sodium ?Tm Ur-sCncon 025 Sodium Unsp time (U) [Moles/Vol] 67 mmol/L Normal 14-216 [facility] Comment on above: Order Comment: Annie ricci Type: BLOOD SPECIMEN Ordering Facility: [facility] Address: [address] [place] [address] Performed By: #### 2 132-9, 2284-02 #### [facility] CLIA [id number] [address] [place] [address] [place] UREA NITROGEN, RANDOM URINEo n 12-11-2024 UREA NITROGEN,UR,RAN 400 mg/dL Normal 140-1500 [facility] Comment on above: Order Comment: Annie men Type: BLOOD SPECIMEN Ordering Facility: [facility] Address: [address] [place] [address] Performed By: #### 2 132-9, 2283-8 #### [facility] CLIA [id number] [address] OF [place] URINALYSIS, REFLEX MICROSCOP ICon 12-11-2024 Bilirubin Ql (U) Negative Normal Negative [facility] Comment on above: Order Comment: Speci men Type: URINE SPECIMEN [facility]ing Facility: [facility] Address: [address] [place] [address] Performed By: #### L [id number] #### [facility] CLIA [id number] [address] [place] Clarity (Unsp spec) Clear Normal Clear [facility] Comment on above: Order Comment: Speci men Type: URINE SPECIMEN [facility]ing Facility: [facility] Address: [address] [place] [address] Performed By: #### L [id number] #### [facility] CLIA [id number] [address] [place] Color (U) Yellow Normal Yellow [facility] Comment on above: Order Comment: Speci men Type: URINE SPECIMEN Ordering Facility: [facility] Address: [address] [place] [address] Performed By: #### L [id number] #### [facility] CLIA [id number] [address] [place] Glucose Test strip (U) [Mass/Vol] Negative Normal Negative [facility] Comment on above: Order Comment: Speci men Type: URINE SPECIMEN Ordering Facility: [facility] Address: [address] [place] [address] Performed By: #### L [id number] #### [facility] CLIA [id number] [address] STATES [place] Hemoglobin Ql (U) Negative Normal Negative [facility] Comment on above: Order Comment: Speci men Type: URINE SPECIMEN [facility]ing Facility: [facility] Address: [address] [place] [address] Performed By: #### L [id number] #### [facility] CLIA [id number] [address] [place] Ketones Ql (U) Negative Normal Negative [facility] Comment on above: Order Comment: Speci men Type: URINE SPECIMEN [facility]ing Facility: [facility] Address: [address] [place] [address] Performed By: #### L [id number] #### [facility] CLIA [id number] [address] Leukocyte esterase Test strip Ql (U) Negative Normal Negative [facility] Comment on above: Order Comment: Speci men Type: URINE SPECIMEN Ordering Facility: [facility] Address: [address] [place] [address] Performed By: #### L [id number] #### [facility] CLIA [id number] [address] [place] [address] [place] Nitrite Ql (U) Negative Normal Negative [facility] Comment on above: Order Comment: Speci men Type: URINE SPECIMEN Ordering Facility: [facility] Address: [address] [place] [address] Performed By: #### L [id number] #### [facility] CLIA [id number] [address] [place] pH (U) 6.5 [pH] Normal 5.0-8.0 [facility] Comment on above: Order Comment: Speci men Type: URINE SPECIMEN Ordering Facility: [facility] Address: [address] [place] [address] Performed By: #### L [id number] #### [facility] CLIA [id number] [address] STATES [place] Protein (U) [Mass/Vol] Negative Normal Negative [facility] Comment on above: Order Comment: Speci men Type: URINE SPECIMEN [facility]ing Facility: [facility] Address: [address] [place] [address] Performed By: #### L [id number] #### [facility] CLIA [id number] [address] Specific gravity (U) [Rel density] 1.010 Normal 1.005-1.030 [facility] Comment on above: Order Comment: Speci men Type: URINE SPECIMEN Ordering Facility: [facility] Address: [address] [place] [address] Performed By: #### L [id number] #### [facility] CLIA [id number] [address] [place] [address] [place] Urobilinogen Ql (U) 0.2 EU/dL Normal 0.2-1.0 EU/dL [facility] Comment on above: Order Comment: Speci men Type: URINE SPECIMEN Ordering Facility: 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 Apartment Leasing Specialist: JAMES Transcribe Date/Time: Dec 11 2024 11:31A Dictated by : ANNETTA ALELN DO This examination was interpreted and the report reviewed and electronically signed by: ANNETTA ALLEN DO on Dec 11 2024 11:41AM EST [id number] [facility] Vit B12 SerPl-ncon 025 Cobalamin (Vitamin B12) [Mass/Vol] 1393 pg/mL High 232-1245 [facility] Comment on above: Order Comment: Speci men Type: BLOOD SPECIMEN Ordering Facility: [facility] Address: [address] [place] [address] Performed By: #### 2 132-9, 2284-8 #### [facility] CLIA [id number] [address] [place], [place] [address] [place] [address] ALLIED HEALTHon 12-10-2024 ALLIED HEALTH HNO ID: [id number] Author: SHONDA CUNNINGHAM RT(R) Service: Radiology Author [...] PATIENT PRESENTS WITH AN IMPLANTABLE OR ATTACHED AIRCRAFT MAGNETO MECHANIC: No RADIOLOGY DEPARTMENT: General X-ray: Exam(s) Completed: Chest X-Ray PERIPHERAL IV DATA: Not applicable SIGNED BY: RT Boyd(R) December 10, 2024 8:[address] [facility] CBC W Auto Differential pane l (Bld)on 12-10-2024 Basophils (Bld) [#/Vol] 0.09 10*3/uL Normal <0.11 [facility] Comment on above: Order Comment: Speci men Type: BLOOD SPECIMEN Ordering Facility: [facility] Address: [address] [place] [address] Performed By: #### 5 7021-8 #### [facility] CLIA [id number] [address] [place] [address] [place] Basophils/100 WBC (Bld) 1.1 % Normal [facility] Comment on above: Order Comment: Speci men Type: BLOOD SPECIMEN Ordering Facility: [facility] Address: [facility] [place] [address] Performed By: #### 5 7021-8 #### [facility] CLIA [id number] [address] OF [facility] Differential cell count method Nom (Bld) Auto Normal [facility] Comment on above: Order Comment: Speci men Type: BLOOD SPECIMEN Ordering Facility: [facility] Address: [address] [place] [address] Performed By: #### 5 7021-8 #### [facility] CLIA [id number] [address] [place] [address] [place] Eosinophils (Bld) [#/Vol] 0.21 10*3/uL Normal <0.46 [facility] Comment on above: Order Comment: Speci men Type: BLOOD SPECIMEN Ordering Facility: [facility] Address: [address] [place] [address] Performed By: #### 5 7021-8 #### [facility] CLIA [id number] [address] [place] Eosinophils/100 WBC (Bld) 2.6 % Normal [facility] Comment on above: Order Comment: Speci men Type: BLOOD SPECIMEN Ordering Facility: [facility] Address: [address] [place] [address] Performed By: #### 5 7021-8 #### [facility] CLIA [id number] [address] [place] [address] [place] Erythrocyte distribution width (RBC) [Ratio] 16.2 % High 11.5-15.0 [facility] Comment on above: Order Comment: Speci men Type: BLOOD SPECIMEN Ordering Facility: [facility] Address: [address] [place] [address] Performed By: #### 5 7021-8 #### [facility] CLIA [id number] [address] [place] Hematocrit (Bld) [Volume fraction] 26.5 % Low 36.0-46.0 [facility] Comment on above: Order Comment: Speci men Type: BLOOD SPECIMEN Ordering Facility: [facility] Address: [address] [place] [address] Performed By: #### 5 7021-8 #### [facility] CLIA [id number] [address] [place] Hemoglobin (Bld) [Mass/Vol] 8.2 g/dL Low 11.5-15.5 [facility] Comment on above: Order Comment: Speci men Type: BLOOD SPECIMEN Ordering Facility: [facility] Address: [address] [place] [address] Performed By: #### 5 7021-8 #### [facility] CLIA [id number] [address] Immature granulocytes (Bld) [#/Vol] 0.03 10*3/uL Normal <0.10 [facility] Comment on above: Order Comment: Speci men Type: BLOOD SPECIMEN Ordering Facility: [facility] Address: [address] [place] [address] Performed By: #### 5 7021-8 #### [facility] CLIA [id number] [address] Immature granulocytes/100 WBC (Bld) 0.4 % Normal [facility] Comment on above: Order Comment: Speci men Type: BLOOD SPECIMEN Ordering Facility: [facility] Address: [address] [place] [address] Performed By: #### 5 7021-8 #### [facility] CLIA [id number] [address] [place] Lymphocytes (Bld) [#/Vol] 2.52 10*3/uL Normal 1.00-4.00 [facility] Comment on above: Order Comment: Speci men Type: BLOOD SPECIMEN Ordering Facility: [facility] Address: [address] [place] [address] Performed By: #### 5 7021-8 #### [facility] CLIA [id number] [address] Lymphocytes/100 WBC (Bld) 30.7 % Normal [facility] Comment on above: Order Comment: Speci men Type: BLOOD SPECIMEN Ordering Facility: [facility] Address: [address] [place] [address] Performed By: #### 5 7021-8 #### [facility] CLIA [id number] [address] MCH (RBC) [Entitic mass] 28.5 pg Normal 26.0-34.0 [facility] Comment on above: Order Comment: Speci men Type: BLOOD SPECIMEN Ordering Facility: [facility] Address: [address] [place] [address] Performed By: #### 5 7021-8 #### [facility] CLIA [id number] [address] MCHC (RBC) [Mass/Vol] 30.9 g/dL Normal 30.5-36.0 [facility] Comment on above: Order Comment: Speci men Type: BLOOD SPECIMEN Ordering Facility: [facility] Address: [address] [place] [address] Performed By: #### 5 7021-8 #### [facility] CLIA [id number] [address] MCV (RBC) [Entitic vol] 92.0 fL Normal 80.0-100.0 [facility] Comment on above: Order Comment: Speci men Type: BLOOD SPECIMEN Ordering Facility: [facility] Address: [address] [place] [address] Performed By: #### 5 7021-8 #### [facility] CLIA [id number] [address] [place] [address] [place] Monocytes (Bld) [#/Vol] 1.19 10*3/uL High <0.87 [facility] Comment on above: Order Comment: Speci men Type: BLOOD SPECIMEN Ordering Facility: [facility] Address: [address] [place] [address] Performed By: #### 5 7021-8 #### [facility] CLIA [id number] [address] [place] Monocytes/100 WBC (Bld) 14.5 % Normal [facility] Comment on above: Order Comment: Speci men Type: BLOOD SPECIMEN Ordering Facility: [facility] Address: [address] [place] [address] Performed By: #### 5 7021-8 #### [facility] CLIA [id number] [address] [place] Neutrophils (Bld) [#/Vol] 4.17 10*3/uL Normal 1.45-7.50 [facility] Comment on above: Order Comment: Speci men Type: BLOOD SPECIMEN Ordering Facility: [facility] Address: [address] [place] [address] Performed By: #### 5 7021-8 #### [facility] CLIA [id number] [address] Neutrophils/100 WBC (Bld) 50.7 % Normal [facility] Comment on above: Order Comment: Speci men Type: BLOOD SPECIMEN Ordering Facility: [facility] Address: [address] [place] [address] Performed By: #### 5 7021-8 #### [facility] CLIA [id number] [address] [place] [address] [place] Nucleated RBC (Bld) [#/Vol] 10*3/uL Normal <0.01 [facility] Comment on above: Order Comment: Speci men Type: BLOOD SPECIMEN Ordering Facility: [facility] Address: [address] [place] [address] Performed By: #### 5 7021-8 #### [facility] CLIA [id number] [address] Nucleated RBC/100 WBC (Bld) [Ratio] 0.0 /100 WBC Normal [facility] Comment on above: Order Comment: Speci men Type: BLOOD SPECIMEN Ordering Facility: [facility] Address: [address] [place] [address] Performed By: #### 5 7021-8 #### [facility] CLIA [id number] [address] [place] Platelet mean volume (Bld) [Entitic vol] 10.5 fL Normal 9.0-12.7 [facility] Comment on above: Order Comment: Speci men Type: BLOOD SPECIMEN Ordering Facility: [facility] Address: [address] [place] [address] Performed By: #### 5 7021-8 #### [facility] CLIA [id number] [address] [place] Platelets (Bld) [#/Vol] 168 10*3/uL Normal 150-400 [facility] Comment on above: Order Comment: Speci men Type: BLOOD SPECIMEN Ordering Facility: [facility] Address: [address] [place] [address] Performed By: #### 5 7021-8 #### [facility] CLIA [id number] [address] [place] RBC (Bld) [#/Vol] 2.88 10*6/uL Low 3.90-5.20 [facility] Comment on above: Order Comment: Speci men Type: BLOOD SPECIMEN Ordering Facility: [facility] Address: [address] [place] [address] Performed By: #### 5 7021-8 #### [facility] CLIA [id number] [address] [place] WBC (Bld) [#/Vol] 8.21 10*3/uL Normal 3.70-11.00 [facility] Comment on above: Order Comment: Speci men Type: BLOOD SPECIMEN Ordering Facility: [facility] Address: [address] [place] [address] Performed By: #### 5 7021-8 #### [facility] CLIA [id number] [address] [place] [address] [place] CONSULTon 12-10-2024 CONSULT HNO ID: [id number] Author: BETSY HALL MD Service: Nephrology Author Type: Physician Type: Consults Filed: 12/10/2024 19:42 Note Text: INPATIENT INITIAL NEPHROLOGY CONSULT SERVICE DATE: 12/10/2024 SERVICE TIME: 7:30 PM REASON FOR CONSULT: MONIQUE/ CRS REQUESTING PHYSICIAN: Dr Tuttle PRIMARY CARE PHYSICIAN: Deysi Collazo APRN.KNIT GOODS MENDER CC: SOB and edema Subjective Ms. Sanches [...] history recent MONIQUE secondary to ATN requiring REGIONAL COORDINATOR with subsequent renal recovery hemodialysis catheter was [...] Pacemaker 10/21/[address] TRELL BARTLETT [id number] pulse generator, his bundle lead, right atrial lead Peripheral arterial disease Rheumatic fever Steatosis, liver 03/26/2014 fatty liver on US. 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 Lua PACEMAKER 10/2019 PART. HYSTERECTOMY W/WO RMVL OVARIES/TUBES 1973 h/o cervical cancer ovaries remain PAST SURGICAL HISTORY OF 1996 Aortic valve repair, Dr. Apodaca PAST SURGICAL HISTORY OF 2001 [address] Beltrán, [facility] PAST SURGICAL HISTORY OF 2015 [...] red win (more content not included)... Normal [facility] Comprehensive metabolic 2000 panelon 12-10-2024 Albumin [Mass/Vol] 3.8 g/dL Low 3.9-4.9 [facility] Comment on above: Order Comment: Speci men Type: URINE SPECIMEN [facility]ing Facility: [facility] Address: [address] [place] [address] Performed By: #### L [id number] #### [facility] CLIA [id number] [address] STATES OF [facility] ALP [Catalytic activity/Vol] 139 U/L High 34-123 [facility] Comment on above: Order Comment: Speci men Type: URINE SPECIMEN [facility]ing Facility: [facility] Address: [address] [place] [address] Performed By: #### L [id number] #### [facility] CLIA [id number] [address] ALT [Catalytic activity/Vol] 12 U/L Normal 7-38 [facility] Comment on above: Order Comment: Speci men Type: URINE SPECIMEN Ordering Facility: [facility] Address: [address] [place] [address] Performed By: #### L [id number] #### [facility] CLIA [id number] [address] Anion gap [Moles/Vol] 13 mmol/L Normal 8-15 [facility] Comment on above: Order Comment: Speci men Type: URINE SPECIMEN Ordering Facility: [facility] Address: [address] [place] [address] Performed By: #### L [id number] #### [facility] CLIA [id number] [address] AST [Catalytic activity/Vol] 27 U/L Normal 13-35 [facility] Comment on above: Order Comment: Speci men Type: URINE SPECIMEN Ordering Facility: [facility] Address: [address] [place] [address] Performed By: #### L [id number] #### [facility] CLIA [id number] [address] [place] [address] [place] Bilirubin [Mass/Vol] 0.8 mg/dL Normal 0.2-1.3 [facility] Comment on above: Order Comment: Speci men Type: URINE SPECIMEN [facility]ing Facility: [facility] Address: [address] [place] [address] Performed By: #### L [id number] #### [facility] CLIA [id number] [address] [place] [address] [place] Calcium [Mass/Vol] 9.0 mg/dL Normal 8.5-10.2 [facility] Comment on above: Order Comment: Speci men Type: URINE SPECIMEN [facility]ing Facility: [facility] Address: [address] [place] [address] Performed By: #### L [id number] #### [facility] CLIA [id number] [address] [place] [address] [place] Chloride [Moles/Vol] 98 mmol/L Normal 98-107 [facility] Comment on above: Order Comment: Speci men Type: URINE SPECIMEN [facility]ing Facility: [facility] Address: [address] [place] [address] Performed By: #### L [id number] #### [facility] CLIA [id number] [address] [place] [address] [place] CO2 [Moles/Vol] 20 mmol/L Low 22-30 [facility] Comment on above: Order Comment: Speci men Type: URINE SPECIMEN [facility]ing Facility: [facility] Address: [address] [place] [address] Performed By: #### L [id number] #### [facility] CLIA [id number] [address] [place] [address] [place] Creatinine [Mass/Vol] 1.90 mg/dL High 0.58-0.96 [facility] Comment on above: Order Comment: Annie ricci Type: URINE SPECIMEN [facility]ing Facility: [facility] Address: [address] [place] [address] Performed By: #### L [id number] #### [facility] CLIA [id number] [address] [place] [address] [place] Creatinine and Glomerular filtration rate.predicted panel (S/P/Bld) 27 mL/min/1.73m??? Low >=60 [facility] Comment on above: Order Comment: Annie ricci Type: URINE SPECIMEN [facility]ing Facility: [facility] Address: [address] [place] [address] Result Comment: Mira mated Glomerular Filtration Rate [...] reflect actual GFR. Performed By: #### L [id number] #### [facility] CLIA [id number] [address] [place] [address] [place] Glucose [Mass/Vol] 140 mg/dL High 74-99 [facility] Comment on above: Order Comment: Annie keiry Type: URINE SPECIMEN [facility]ing Facility: [facility] Address: [address] [place] [address] Result Comment: The [place] Diabetes Association (ADA) provides guidance for cutoff [...] Standards of Medical Care in Diabetes 2016, [place] [employer]. Diabetes Care. 2016.39(Suppl 1). Performed By: #### L [id number] #### [facility] CLIA [id number] [address] [place] [address] [place] Potassium [Moles/Vol] 4.2 mmol/L Normal 3.7-5.1 [facility] Comment on above: Order Comment: Speci men Type: URINE SPECIMEN [facility]ing Facility: [facility] Address: [address] [place] [address] Performed By: #### L [id number] #### [facility] CLIA [id number] [address] [place] [address] [place] Protein [Mass/Vol] 7.3 g/dL Normal 6.3-8.0 [facility] Comment on above: Order Comment: Speci men Type: URINE SPECIMEN Ordering Facility: [facility] Address: [address] [place] [address] Performed By: #### L [id number] #### [facility] CLIA [id number] [address] [place] Sodium [Moles/Vol] 131 mmol/L Low 136-144 [facility] Comment on above: Order Comment: Speci men Type: URINE SPECIMEN [facility]ing Facility: [facility] Address: [address] [place] [address] Performed By: #### L [id number] #### [facility] CLIA [id number] [address] STATES [facility] Urea nitrogen [Mass/Vol] 63 mg/dL High 7-21 [facility] Comment on above: Order Comment: Speci men Type: URINE SPECIMEN [facility]ing Facility: [facility] Address: [address] [place] [address] Performed By: #### L [id number] #### [facility] CLIA [id number] [address] [place] [address] [place] ECG COMPLETEon 12-10-2024 ECG COMPLETE Ventricular Rate : 7 9 BPM QRS Duration : 118 ms Q-T Interval : 418 ms QTC Calculation(Bazett) : 479 ms Calculated R [place] : -30 degrees Calculated T [place] : 161 degrees ATRIAL FIBRILLATION WITH PREMATURE VENTRICULAR OR ABERRANTLY CONDUCTED COMPLEXES LEFT AXIS DEVIATION LEFT VENTRICULAR HYPERTROPHY WITH QRS WIDENING ( R in aVL , Callery product ) T WAVE ABNORMALITY, CONSIDER LATERAL ISCHEMIA ABNORMAL ECG No Stemi Confirmed by ANSON MANRIQUE DO ([id number]) on 12/10/2024 3:12:25 PM NAME : BERTA SANCHES PID : [id number] : 1945 Gender : Female Race : ORD : [id number] Procedure Date : Dec 10 2024 07:55:48 Edit Date : Dec 10 2024 15:12:31 Diagnosis: ATRIAL FIBRILLATION WITH PREMATURE VENTRICULAR OR ABERRANTLY CONDUCTED COMPLEXES LEFT AXIS DEVIATION LEFT VENTRICULAR HYPERTROPHY WITH QRS WIDENING ( R in aVL , Callery product ) T WAVE ABNORMALITY, CONSIDER LATERAL ISCHEMIA ABNORMAL ECG No Stemi Confirmed by ANSON MANRIQUE DO ([id number]) on 12/10/2024 3:12:25 PM Test Reason : Chest Pain Location : 1 : ER ED Overread By : ANSON MANRIQUE DO Edited By : ANSON MANRIQUE DO Referred By : , Acquired by : [id number], [facility] ED NOTEon 12-10-2024 ED NOTE HNO ID: [id number] Author: RODERICK BRYANT RN Service: ? Author Type: Registered Nurse Type: ED Notes Filed: 12/10/2024 07:36 Note Text: DO Ronak rounds at bedside [facility] ED PROV NOTEon 12-10-2024 ED PROV NOTE HNO ID: [id number] Author: ANSON MANRIQUE DO Service: Emergency Medicine [...] Pacemaker 10/21/[address] TRELL BARTLETT W1DR01 pulse generator, his bundle lead, right atrial lead Peripheral arterial disease Rheumatic fever Steatosis, liver 03/26/2014 fatty liver on US. 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 Lua PACEMAKER 10/2019 PART. HYSTERECTOMY W/WO RMVL OVARIES/TUBES 1974 h/o cervical cancer ovaries remain PAST SURGICAL HISTORY OF 1996 Aortic valve repair, Dr. Apodaca PAST SURGICAL HISTORY OF 2001 [address] Beltrán, [facility] PAST SURGICAL HISTORY OF 2015 [...] Weight H (more content not included)... Normal [facility] HIGH SENSITIVITY TROPONIN T (INITIAL)on 12-10-2024 Troponin T.cardiac High sensitivity method [Mass/Vol] 72 ng/L High <12 [facility] Comment on above: Order Comment: Speci men Type: URINE SPECIMEN [facility]ing Facility: [facility] Address: [address] [place] [address] Performed By: #### L [id number] #### [facility] CLIA [id number] [address] [place] [address] [place] HIGH SENSITIVITY TROPONIN T (SECOND)on 12-10-2024 Troponin T.cardiac High sensitivity method [Mass/Vol] 66 ng/L High <12 [facility] Comment on above: Order Comment: Speci men Type: BLOOD SPECIMEN Ordering Facility: [facility] Address: [address] [place] [address] Performed By: #### 2 132-9, 2284-8 #### [facility] CLIA [id number] [address] [place] [address] [place] HIGH SENSITIVITY TROPONIN T (THIRD) 3 HRS AFTER INITIALon 12-10-2024 Troponin T.cardiac High sensitivity method [Mass/Vol] 63 ng/L High <[address] [place] [address] Comment on above: Order Comment: Speci men Type: BLOOD SPECIMEN [facility] Facility: [facility] Address: [address] [place] [address] Performed By: #### 2 132-9, 4-8 #### [facility] CLIA [id number] [address] [place] [address] [place] HISTORY PHYSICALon HISTORY PHYSICAL HNO ID: [id number] Author: JUAN DIEGO KNOWLES MD Service: Hospital Medicine Author Type: Physician Type: H&P Filed: 12/10/2024 13:50 Note Text: HISTORY AND PHYSICAL EXAMINATION PRIMARY CARE PHYSICIAN: Deysi Collazo APRN.KNIT GOODS MENDER HPI: 79 yo woman with hx of [...] Pacemaker 10/21/[address] TRELL BARTLETT W1DR01 pulse generator, his bundle lead, right atrial lead Peripheral arterial disease Rheumatic fever Steatosis, liver 03/26/2014 fatty liver on US. 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 Lua PACEMAKER 10/2019 PART. HYSTERECTOMY W/WO RMVL OVARIES/TUBES 1974 h/o cervical cancer ovaries remain PAST SURGICAL HISTORY OF 1996 Aortic valve repair, Dr. Apodaca PAST SURGICAL HISTORY OF 2001 [address] Beltrán, [facility] PAST SURGICAL HISTORY OF 2016 [...] progressive SO (more content not included)... Normal [facility] Magnesium [facility] 12-10 Magnesium [Mass/Vol] 1.9 mg/dL Normal 1.7-2.3 [facility] Comment on above: Order Comment: Speci men Type: URINE SPECIMEN [facility]ing Facility: [facility] Address: [address] [place] [address] [place] [address] Performed By: #### L [id number] #### [facility] CLIA [id number] [address] [place] [address] [place] NT-proBNP [facility] 12-10 Natriuretic peptide.B prohormone N-Terminal [Mass/Vol] 63119 pg/mL High <450 [facility] Comment on above: Order Comment: Speci men Type: URINE SPECIMEN [facility]ing Facility: [facility] Address: [address] [place] [address] Performed By: #### L [id number] #### [facility] CLIA [id number] [address] [place] [address] [place] [facility] XR CHEST 1V FRONTAL PORTon 0 12-10-2024 [...] lungs. Cardiomegaly/enlargeme nt of the cardiac silhouette. Apartment Leasing Specialist: JAMES Transcribe Date/Time: Dec 10 2024 8:28A Dictated by : KIERSTEN MONTENEGRO MD This examination was interpreted and the report reviewed and electronically signed by: KIERSTEN MONTENEGRO MD on Dec 10 2024 8:31AM EST [id number] Normal [facility] Basic metabolic 2000 panelon 12-01-2024 Anion gap [Moles/Vol] 14 mmol/L Normal 8-15 [facility] Comment on above: Order Comment: Speci men Type: BLOOD SPECIMEN [facility]ing Facility: [facility] Address: [address] [place] [address] Performed By: #### 2 4331-1 #### [facility] CLIA [id number] [address] [place] [address] [place] [address] [place] [facility] CLIA [id number] [address] [place] [address] [place] #### 48136-6 #### [facility] CLIA [id number] [address] [place] [address] [place] Calcium [Mass/Vol] 9.5 mg/dL Normal 8.5-10.2 [facility] Comment on above: Order Comment: Speci men Type: BLOOD SPECIMEN Ordering Facility: [facility] Address: [address] [place], [place] [address] Performed By: #### 2 4331-1 #### [facility] CLIA [id number] [address] [place] [address] [place] [facility] CLIA [id number] [address] [place] [address] [place] #### 47559-1 #### [facility] CLIA [id number] [address] [place] [address] [place] Chloride [Moles/Vol] 97 mmol/L Low 98-107 [facility] Comment on above: Order Comment: Speci men Type: BLOOD SPECIMEN [facility]ing Facility: [facility] Address: [address] [place] [address] Performed By: #### 2 4331-1 #### [facility] CLIA [id number] [address] [place], [place] [address] [place] [facility] CLIA [id number] [address] [place] [address] [place] #### 42984-9 #### [facility] CLIA [id number] [address] [place], [place] [address] [place] CO2 [Moles/Vol] 22 mmol/L Normal 22-30 [facility] Comment on above: Order Comment: Speci men Type: BLOOD SPECIMEN [facility]ing Facility: [facility] Address: [address] [place] [address] Performed By: #### 2 4331-1 #### [facility] CLIA [id number] [address] [place] [address] [place] [facility] CLIA [id number] [address] [place] [address] [place] #### 11816-9 #### [facility] CLIA [id number] [address] [place] [address] [place] Creatinine [Mass/Vol] 1.79 mg/dL High 0.58-0.96 [facility] Comment on above: Order Comment: Speci men Type: BLOOD SPECIMEN [facility]ing Facility: [facility] Address: [address] [place] [address] Performed By: #### 2 4331-1 #### [facility] CLIA [id number] [address] [place] [address] [place] [facility] CLIA [id number] [address] [place] [address] [place] #### 63409-1 #### [facility] CLIA [id number] [address] [place] [address] [place] Creatinine and Glomerular filtration rate.predicted panel (S/P/Bld) 29 mL/min/1.73m??? Low >=60 [facility] Comment on above: Order Comment: Speci men Type: BLOOD SPECIMEN [facility]ing Facility: [facility] Address: [address] [place] [address] Result Comment: Mira mated Glomerular Filtration Rate [...] GFR. Performed By: #### 2 4331-1 #### [facility] CLIA [id number] [address] [place] [address] [place] [facility] CLIA [id number] [address] [place] [address] [place] #### 65862-4 #### [facility] CLIA [id number] [address] [place] [address] [place] Glucose [Mass/Vol] 151 mg/dL High 74-99 [facility] Comment on above: Order Comment: Speci men Type: BLOOD SPECIMEN [facility]ing Facility: [facility] Address: [address] [place] [address] Result Comment: The [place] Diabetes Association (ADA) provides guidance for cutoff [...] Standards of Medical Care in Diabetes 2016, [place] [employer]. Diabetes Care. 2016.39(Suppl 1). Performed By: #### 2 4331-1 #### [facility] CLIA [id number] [address] [place] [address] [place] [facility] [id number] [address] [place] [address] [place] #### 45786-1 #### [facility] CLIA [id number] [address] [place] [address] [place] Potassium [Moles/Vol] 4.2 mmol/L Normal 3.7-5.1 [facility] Comment on above: Order Comment: Speci men Type: BLOOD SPECIMEN [facility]ing Facility: [facility] Address: [address] [place] [address] Performed By: #### 2 4331-1 #### [facility] CLIA [id number] [address] [place] [address] [place] [facility] CLIA [id number] [address] [place] [address] [place] #### 96736-6 #### [facility] CLIA [id number] [address] [place] [address] [place] Sodium [Moles/Vol] 133 mmol/L Low 136-144 [facility] Comment on above: Order Comment: Speci men Type: BLOOD SPECIMEN [facility]ing Facility: [facility] Address: [address] [place] [address] Performed By: #### 2 4331-1 #### [facility] CLIA [id number] [address] [place] [address] [place] [facility] CLIA [id number] [address] [place] [address] [place] #### 37846-4 #### [facility] CLIA [id number] [address] [place] [address] [place] Urea nitrogen [Mass/Vol] 37 mg/dL High 7-21 [facility] Comment on above: Order Comment: Speci men Type: BLOOD SPECIMEN [facility]ing Facility: [facility] Address: [address] [place] [address] Performed By: #### 2 4331-1 #### [facility] CLIA [id number] [address] [place] [address] [place] [facility] CLIA [id number] [address] [place] [address] [place] #### 09532-1 #### [facility] CLIA [id number] [address] [place] [address] [place] NT-proBNP [facility] 12-01 Natriuretic peptide.B prohormone N-Terminal [Mass/Vol] 60141 pg/mL High <450 [facility] Comment on above: Order Comment: Speci men Type: BLOOD SPECIMEN [facility] Facility[facility] Address: [address] [place] [address] Performed By: #### 3 3762-6 #### [facility] CLIA [id number] [address] [place] [address] [place] Basic metabolic 2000 panelon 11-20-2024 Anion gap [Moles/Vol] 19 mmol/L High 8-15 [facility] Comment on above: Order Comment: Speci men Type: BLOOD SPECIMEN [facility]ing Facility: [facility] Address: [address] [place] [address] Performed By: #### 3 3762-6 #### [facility] CLIA [id number] [address] [place] [address] [place] Calcium [Mass/Vol] 9.5 mg/dL Normal 8.5-10.2 [facility] Comment on above: Order Comment: Speci men Type: BLOOD SPECIMEN [facility]ing Facility: [facility] Address: [address] [place] [address] Performed By: #### 3 3762-6 #### [facility] CLIA [id number] [address] [place] [address] [place] Chloride [Moles/Vol] 98 mmol/L Normal 98-107 [facility] Comment on above: Order Comment: Speci men Type: BLOOD SPECIMEN [facility] Facility[facility] Address: [address] [place] [address] Performed By: #### 3 3762-6 #### [facility] CLIA [id number] [address] [place] [address] [place] CO2 [Moles/Vol] 18 mmol/L Low 22-30 [facility] Comment on above: Order Comment: Speci men Type: BLOOD SPECIMEN [facility] Facility[facility] Address: [address] [place] [address] Performed By: #### 3 3762-6 #### [facility] CLIA [id number] [address] [place] [address] [place] Creatinine [Mass/Vol] 1.70 mg/dL High 0.58-0.96 [facility] Comment on above: Order Comment: Speci men Type: BLOOD SPECIMEN [facility] Facility[facility] Address: [address] [place] [address] Performed By: #### 3 3762-6 #### [facility] CLIA [id number] [address] [place] [address] [place] Creatinine and Glomerular filtration rate.predicted panel (S/P/Bld) 30 mL/min/1.73m??? Low >=60 [facility] Comment on above: Order Comment: Speci men Type: BLOOD SPECIMEN [facility] Facility[facility] Address: [address] [place] [address] Result Comment: Mira mated Glomerular Filtration Rate [...] GFR. Performed By: #### 3 3762-6 #### [facility] CLIA [id number] [address] [place] [address] [place] Glucose [Mass/Vol] 150 mg/dL High 74-99 [facility] Comment on above: Order Comment: Speci men Type: BLOOD SPECIMEN [facility]ing Facility[facility] Address: [address] [place] [address] Result Comment: The [place] Diabetes Association (ADA) provides guidance for cutoff [...] Standards of Medical Care in Diabetes 2016, [place] Diabetes Association. Diabetes Care. 2016.39(Suppl 1). Performed By: #### 3 3762-6 #### [facility] CLIA [id number] [address] [place] [address] [place] Potassium [Moles/Vol] 4.6 mmol/L Normal 3.7-5.1 [facility] Comment on above: Order Comment: Speci men Type: BLOOD SPECIMEN [facility] Facility[facility] Address: [address] [place] [address] Performed By: #### 3 3762-6 #### [facility] CLIA [id number] [address] [place] [address] [place] Sodium [Moles/Vol] 135 mmol/L Low 136-144 [facility] Comment on above: Order Comment: Speci men Type: BLOOD SPECIMEN [facility] Facility[facility] Address: [address] [place] [address] Performed By: #### 3 3762-6 #### [facility] CLIA [id number] [address] [place] [address] [place] Urea nitrogen [Mass/Vol] 37 mg/dL High 7-21 [facility] Comment on above: Order Comment: Speci men Type: BLOOD SPECIMEN [facility] Facility[facility] Address: [address] [place] [address] Performed By: #### 3 3762-6 #### [facility] CLIA [id number] [address] [place] [address] OF [facility] CNOVon 11-20-2024 CNOV Office Visit (JOHNNY ) BERTA SANCHES ([id number]) 1945 [facility] Date Time Provider Department 11/20/24 8:00 AM CARLA BURDICK During your visit today, we recorded the following information about you: Pulse Respiration Blood pressure Weight 84/minute 12/minute 154/62 65.2 kg Height 1.575 m Carla Burdick MD 11/20/2024 8:50 AM [facility] SECTION OF [facility] Cardiology ([facility]) [address] [facility] [id number] OUTPATIENT VISIT DATE PRIMARY CARE PHYSICIAN: Doreen Le [address] [place] [address] HISTORY OF PRESENT ILLNESS: Ms. Sanches is [...] Pacemaker 10/21/[address] TRELL BARTLETT W1DR01 pulse generator, his bundle lead, right atrial lead Peripheral arterial disease Rheumatic fever Steatosis, liver 03/26/2014 fatty liver on US. 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 Lua PACEMAKER 10/2019 PART. HYSTERECTOMY W/WO RMVL OVARIES/TUBES 1973 h/o cervical cancer ovaries remain PAST SURGICAL HISTORY OF 1996 Aortic valve repair, Dr. Apodaca PAST SURGICAL HISTORY OF 2001 [address] Beltrán, [facility] PAST SURGICAL HISTORY OF 2015 [...] Hypotension MEDICATIONS: (more content not included)... Normal [facility] NT-proBNP [facility] 11-20 Natriuretic peptide.B prohormone N-Terminal [Mass/Vol] 90174 pg/mL High <450 [facility] Comment on above: Order Comment: Speci men Type: BLOOD SPECIMEN [facility] Address: [address] [place] [address] Performed By: #### 3 3762-6 #### [facility] CLIA [id number] [address] [place] [address] [place] CNPShantelle 11-14-2024 JASPREETN Telephone (JOHNNY) BERTA SANCHES ([id number]) 1945 [facility] Date Time Provider Department 11/14/24 CARLA BURDICK [...] Torsemide to help with the edema? Irma Hwagn RN 11/15/2024 8:29 AM Signed Patient called [...] on Wednesday when I am there at [place]. Will plan to repeat blood work [...] 02/26/2014 03/21/2022 Intracranial aneurysm [I67.1] 08/30/2015 10/05/2022 nursing home current use of antiarrhythmic medical*10/20/2016 09/12/2021 [...] pulmonary embolism [Z86.711] 03/27/2019 Ascending aorta dilatation ([facility] [I77.810] 03/27/2019 Chronic bilateral pleural effusions [J90] 03/27/2019 Colovesical f (more content not included)... Normal [facility] Basic metabolic 2000 panelon 11-13-2024 Anion gap [Moles/Vol] 11 mmol/L Normal 8-15 [facility] Comment on above: Order Comment: Speci men Type: BLOOD SPECIMEN [facility] Address: [address] [place] [address] Performed By: #### 2 4331-1 #### [facility] CLIA [id number] [address] [place] [address] [place] [facility] CLIA [id number] [address] [place] [address] [place] #### 53097-6 #### [facility] CLIA [id number] [address] [place] [address] [place] Calcium [Mass/Vol] 9.3 mg/dL Normal 8.5-10.2 [facility] Comment on above: Order Comment: Speci men Type: BLOOD SPECIMEN [facility] Facility[facility] Address: [address] [place] [address] Performed By: #### 2 4331-1 #### [facility] CLIA [id number] [address] [place] [id number] [place] [facility] CLIA [id number] [address] [place] [address] [place] #### 41225-8 #### [facility] CLIA [id number] [address] [place] [address] [place] Chloride [Moles/Vol] 98 mmol/L Normal 98-107 [facility] Comment on above: Order Comment: Speci men Type: BLOOD SPECIMEN [facility] Address: [address] [place] [address] Performed By: #### 2 4331-1 #### [facility] CLIA [id number] [address] [place] [address] [place] [facility] CLIA [id number] [address] [place] [address] [place] #### 03100-4 #### [facility] CLIA [id number] [address] [place] [address] [place] CO2 [Moles/Vol] 26 mmol/L Normal 22-30 [facility] Comment on above: Order Comment: Speci men Type: BLOOD SPECIMEN [facility] Address: [address] [place], [place] [address] Performed By: #### 2 4331-1 #### [facility] CLIA [id number] [address] [place] [id number] [place] [facility] CLIA [id number] [address] [place] [address] [place] #### 29690-0 #### [facility] CLIA [id number] [address] [place] [address] [place] Creatinine [Mass/Vol] 1.82 mg/dL High 0.58-0.96 [facility] Comment on above: Order Comment: Speci men Type: BLOOD SPECIMEN [facility] Address: [address] [place] [address] Performed By: #### 2 4331-1 #### [facility] CLIA [id number] [address] [place] [address] [id number] [place] [address] [place] #### 40857-6 #### [facility] CLIA [id number] [address] [place] [address] [place] [facility] Creatinine and Glomerular filtration rate.predicted panel (S/P/Bld) 28 mL/min/1.73m??? Low >=60 [facility] Comment on above: Order Comment: Annie ricci Type: BLOOD SPECIMEN [facility] Facility[facility] Address: [address] [place] [address] Result Comment: Mira mated Glomerular Filtration Rate [...] GFR. Performed By: #### 2 4331-1 #### [facility] CLIA [id number] [address] [place] [address] [place] [facility] [id number] [address] [place] [address] [place] #### 85582-4 #### [facility] CLIA [id number] [address] [place] [address] [place] Glucose [Mass/Vol] 127 mg/dL High 74-99 [facility] Comment on above: Order Comment: Speci men Type: BLOOD SPECIMEN [facility] Address: [address] [place] [address] Result Comment: The [place] Diabetes Association (ADA) provides guidance for cutoff [...] Standards of Medical Care in Diabetes 2016, [place] [employer]. Diabetes Care. 2016.39(Suppl 1). Performed By: #### 2 4331-1 #### [facility] CLIA [id number] [address] [place] [address] [place] [facility] CLIA [id number] [address] [place] [address] [place] #### 81662-4 #### [facility] CLIA [id number] [address] [place] [address] [place] Potassium [Moles/Vol] 4.0 mmol/L Normal 3.7-5.1 [facility] Comment on above: Order Comment: Speci men Type: BLOOD SPECIMEN [facility] Address: [address] [place] [address] Performed By: #### 2 4331-1 #### [facility] CLIA [id number] [address] [place] [address] [place] [facility] CLIA [id number] [address] [place] [address] [place] #### 44890-3 #### [facility] CLIA [id number] [address] [place] [address] [place] Sodium [Moles/Vol] 135 mmol/L Low 136-144 [facility] Comment on above: Order Comment: Speci men Type: BLOOD SPECIMEN [facility] Facility[facility] Address: [address] [place], [place] [address] Performed By: #### 2 4331-1 #### [facility] CLIA [id number] [address] [place] [address] [place] [facility] [id number] [address] [place] [address] [place] #### 63689-9 #### [facility] CLIA [id number] [address] [place] [address] [place] Urea nitrogen [Mass/Vol] 41 mg/dL High 7-21 [facility] Comment on above: Order Comment: Speci men Type: BLOOD SPECIMEN [facility] Address: [address] [place], [place] [address] Performed By: #### 2 4331-1 #### [facility] CLIA [id number] [address] [place] [address] [place] [facility] [id number] [address] [place] [address] [place] #### 82547-0 #### [facility] CLIA [id number] [address] [place] [address] [place] NT-proBNP [facility] 11-13 Natriuretic peptide.B prohormone N-Terminal [Mass/Vol] 93353 pg/mL High <450 [facility] Comment on above: Order Comment: Speci men Type: BLOOD SPECIMEN [facility] Facility[facility] Address: [address] [place] [address] Performed By: #### 2 4331-1 #### [facility] CLIA [id number] [address] [place], [place] [address]K [address] OF [facility] CLIA [id number] [address] [place] [address] [place] #### 32531-8 #### [facility] CLIA [id number] [address] [place] [address] OF [facility] CNOVon 11-06-2024 CNOV Office Visit ([facility] ) BERTA SANCHES Glenna ([id number]) 1945 F [facility] Date Time Provider Department 11/06/24 2:40 PM CARLA BURDICK During your visit today, we recorded the following information about you: Pulse Respiration Blood pressure Weight 68/minute 12/minute 134/54 68.9 kg Height 1.575 m Carla Burdick MD 11/06/2024 5:01 PM Signed [facility] SE[facility]IONAL CARDIOLOGY Cardiology ([facility]) [address] [facility] [id number] OUTPATIENT VISIT DATE 11/06/2024 PRIMARY CARE PHYSICIAN: Doreen Le [address] [place] [address] HISTORY OF PRESENT ILLNESS: Ms. Sanches is [...] seen in the heart failure clinic last Joaquin. She was given a dose of IV [...] Pacemaker 10/21/[address] TRELL BARTLETT [id number] pulse generator, his bundle lead, right atrial lead Peripheral arterial disease Rheumatic fever Steatosis, liver 03/26/2014 fatty liver on US. 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 Lua PACEMAKER 10/2019 PART. HYSTERECTOMY W/WO RMVL OVARIES/TUBES 1974 h/o cervical cancer ovaries remain PAST SURGICAL HISTORY OF 1996 Aortic valve repair, Dr. Apodaca PAST SURGICAL HISTORY OF 2001 [address] Beltrán, [facility] PAST SURGICAL HISTORY OF 2015 [...] Allergen Reactions (more content not included)... Normal [facility] Basic metabolic 2000 panelon 11-03-2024 Anion gap [Moles/Vol] 11 mmol/L 8 - 15 mmol/L [facility] Calcium [Mass/Vol] 9.1 mg/dL 8.5 - 10. 2 mg/dL [facility] Chloride [Moles/Vol] 84 mmol/L Low 98 - 10 7 mmol/L [facility] CO2 [Moles/Vol] 27 mmol/L 22 - 30 mmol/L [facility] Creatinine [Mass/Vol] 2.36 mg/dL High 0.58 - 0.96 mg/dL [facility] GFR/1.73 sq M.predicted among non-blacks MDRD (S/P/Bld) [Vol rate/Area] 20 mL/min/{1.73_m2} Low - PINF [facility] Comment on above: Estimated Glomerular Filtration [...] 114 mg/dL High 74 - 99 mg/dL [facility] Comment on above: The [place] Diabete s Association (ADA) provides guidance for [...] Standards of Medical Care in Diabetes 2016, [place] Diabetes Association. Diabetes Care. 2016.39(Suppl 1). Interpretation and review of laboratory results Abnormal [facility] Potassium [Moles/Vol] 4.3 mmol/L 3.7 - 5.1 mmol/L [facility] Sodium [Moles/Vol] 122 mmol/L Low 136 - 144 mmol/L [facility] Urea nitrogen [Mass/Vol] 57 mg/dL High 7 - 21 mg/dL [facility] Anion gap [Moles/Vol] 11 mmol/L Normal 8-15 [facility] Comment on above: Order Comment: Annie ricci Type: BLOOD SPECIMEN [facility] Facility: [facility] Address: [facility] [place] [id number] Performed By: #### 2 132-9, 2284-8 #### [facility] CLIA [id number] [address] [place] [address] [place] Calcium [Mass/Vol] 9.1 mg/dL Normal 8.5-10.2 [facility] Comment on above: Order Comment: Speci men Type: BLOOD SPECIMEN [facility] Facility: [facility] Address: [address] [place] [address] Performed By: #### 2 132-9, 2283-8 #### [facility] CLIA [id number] [address] [place] [address] [place] [facility] Chloride [Moles/Vol] 84 mmol/L Low 98-107 [facility] Comment on above: Order Comment: Speci men Type: BLOOD SPECIMEN [facility] Facility[facility] Address: [address] [place] [address] Performed By: #### 2 132-9, 2283-8 #### [facility] CLIA [id number] [address] [place] [address] [place] CO2 [Moles/Vol] 27 mmol/L Normal 22-30 [facility] Comment on above: Order Comment: Kunali men Type: BLOOD SPECIMEN [facility] Facility[facility] Address: [address] [place] [address] Performed By: #### 2 132-9, 2283-8 #### [facility] CLIA [id number] [address] [place] [address] [place] Creatinine [Mass/Vol] 2.36 mg/dL High 0.58-0.96 [facility] Comment on above: Order Comment: Kunali keiry Type: BLOOD SPECIMEN [facility] Facility[facility] Address: [address] [place] [address] Performed By: #### 2 132-9, 4-8 #### [facility] CLIA [id number] [address] Creatinine and Glomerular filtration rate.predicted panel (S/P/Bld) 20 mL/min/1.73m??? Low >=60 [facility] Comment on above: Order Comment: Kunali men Type: BLOOD SPECIMEN [facility] Facility[facility] Address: [address] [place] [address] Result Comment: Mira mated Glomerular Filtration Rate [...] actual GFR. Performed By: #### 2 132-9, 8 #### [facility] CLIA [id number] [address] [place] [address] [place] Glucose [Mass/Vol] 114 mg/dL High 74-99 [facility] Comment on above: Order Comment: Annie ricci Type: BLOOD SPECIMEN [facility] Facility[facility] Address: [address] [place] [address] Result Comment: The [place] Diabetes Association (ADA) provides guidance for cutoff [...] Standards of Medical Care in Diabetes 2016, [place] Diabetes Association. Diabetes Care. 2016.39(Suppl 1). Performed By: #### 2 132-9, 2284-02 #### [facility] CLIA [id number] [address] [place] [address] [place] Potassium [Moles/Vol] 4.3 mmol/L Normal 3.7-5.1 [facility] Comment on above: Order Comment: Annie ricci Type: BLOOD SPECIMEN [facility] Facility: [facility] Address: [address] [place] [address] Performed By: #### 2 1329, 8 #### [facility] CLIA [id number] [address] [place] [address] [place] Sodium [Moles/Vol] 122 mmol/L Low 136-144 [facility] Comment on above: Order Comment: Annie ricci Type: BLOOD SPECIMEN [facility] Facility[facility] Address: [address] [place] [address] Performed By: #### 2 132-9, 8 #### [facility] CLIA [id number] [address] [place] [address] [place] Urea nitrogen [Mass/Vol] 57 mg/dL High 7-21 [facility] Comment on above: Order Comment: Speci men Type: BLOOD SPECIMEN Ordering Facility: [facility] Address: [address] [place] [address] Performed By: #### 2 132-9, 2284-8 #### [facility] CLIA [id number] [address] OF [place] CNOVon 11-03-2024 [facility] BERTA SANCHES ([id number]) 1945 [facility] Date Time Provider Department 11/03/24 9:00 AM ALBIN GU [facility] During your visit today, we recorded [...] or concern, you can call me at [phone]. Albin Gu APRN.CNP 11/03/2024 10:28 AM [facility] Heart Failure [facility] OUTPATIENT VISIT [...] and was worried about traveling home to [place] in a few days. Discussed with her taking lasix as it was prescribed. As her spironolactone was stopped, did advise patient restart this at 25 mg once a day for four days only. She was instructed to call office in a week to review symptoms. On 10/15, patient presented back to [facility] for gastrointestinal bleed. She had a colonoscopy [...] and entresto. The patient wished to leave [place] so she could return to [place]. Cardiology and Pulmonary agreed with discharge. Today, [...] call and discuss this with this HF CLARITY DEVELOPER. Wearing lidocaine patch over site to right side of neck as she mentions skyler (more content not included)... [facility] 11-03-2024 [facility] Telephone ([facility]) BERTA SANCHES ([id number]) 1945 F [facility] Date Time Provider Department 11/03/24 ALBIN GU [facility] During your visit today, we recorded [...] agree with plan of care. Albin Gu APRN.KNIT GOODS MENDER Allergies As of Date: 11/03/2024 Noted Allergy [...] 02/26/2014 03/21/2022 Intracranial aneurysm [I67.1] 08/30/2015 10/05/2022 nursing home current use of antiarrhythmic medical*10/20/2016 09/12/2021 [...] (HCC) [C64.9] (more content not included)... Normal [facility] CBC W Auto Differential pane l (Bld)on 10-31-2024 Basophils (Bld) [#/Vol] 0.06 10*3/uL [facility] Basophils/100 WBC (Bld) 1 % [facility] Differential cell count method Nom (Bld) Auto [facility] Eosinophils (Bld) [#/Vol] 0.13 10*3/uL [facility] Eosinophils/100 WBC (Bld) 2.1 % [facility] Erythrocyte distribution width (RBC) [Ratio] 16.8 % High 11.5 - 15.0 % [facility] Hematocrit (Bld) [Volume fraction] 26.3 % Low 36.0 - 46.0 % [facility] Hemoglobin (Bld) [Mass/Vol] 8.7 g/dL Low 11.5 - 15.5 g/dL [facility] Immature granulocytes (Bld) [#/Vol] 0.04 10*3/uL [facility] Immature granulocytes/100 WBC (Bld) 0.6 % [facility] Interpretation and review of laboratory results Abnormal [facility] Lymphocytes (Bld) [#/Vol] 1.29 10*3/uL [facility] Lymphocytes/100 WBC (Bld) 20.6 % [facility] MCH (RBC) [Entitic mass] 31.6 pg 26.0 - 34.0 pg [facility] MCHC (RBC) [Mass/Vol] 33.1 g/dL 30.5 - 36.0 g/dL [facility] MCV (RBC) [Entitic vol] 95.6 fL 80.0 - 100.0 fL [facility] Monocytes (Bld) [#/Vol] 0.82 10*3/uL [facility] Monocytes/100 WBC (Bld) 13.1 % [facility] Neutrophils (Bld) [#/Vol] 3.92 10*3/uL [facility] Neutrophils/100 WBC (Bld) 62.6 % [facility] Nucleated RBC (Bld) [#/Vol] [facility] Nucleated RBC/100 WBC (Bld) [Ratio] 0 % /100 WBC [facility] Platelet mean volume (Bld) [Entitic vol] 9.5 fL 9.0 - 12.7 fL [facility] Platelets (Bld) [#/Vol] 202 10*3/uL [facility] RBC (Bld) [#/Vol] 2.75 10*6/uL Low 3.90 - 5.2 0 m/uL [facility] WBC (Bld) [#/Vol] 6.26 10*3/uL [facility] Basophils (Bld) [#/Vol] 0.06 10*3/uL Normal <0.11 [facility] Comment on above: Order Comment: Speci men Type: BLOOD SPECIMEN [facility] Facility[facility] Address: [address] [place] [address] Performed By: #### 2 4331-1 #### [facility] CLIA [id number] [address] [place] [address] STATES OF [facility] CLIA [id number] [address] [place] [address] [place] #### 40615-7 #### [facility] CLIA [id number] [address] [place] [address] [place] Basophils/100 WBC (Bld) 1.0 % [facility] Comment on above: Order Comment: Speci men Type: BLOOD SPECIMEN [facility] Facility[facility] Address: [address] [place] [address] Performed By: #### 2 4331-1 #### [facility] CLIA [id number] [address] [place] [address] [place] [id number] [address] [place] [address] [place] #### 37477-9 #### [facility] CLIA [id number] [address] [place] [address] [place] Differential cell count method Nom (Bld) Auto Normal [facility] Comment on above: Order Comment: Speci men Type: BLOOD SPECIMEN [facility] Facility[facility] Address: [address] [place] [address] Performed By: #### 2 4331-1 #### [facility] CLIA [id number] [address] [place] [address] [place] [facility] [id number] [address] [place] [address] [place] #### 61385-3 #### [facility] CLIA [id number] [address] [place] [address] [place] Eosinophils (Bld) [#/Vol] 0.13 10*3/uL Normal <0.46 [facility] Comment on above: Order Comment: Speci men Type: BLOOD SPECIMEN [facility] Facility[facility] Address: [address] [place] [address] Performed By: #### 2 4331-1 #### [facility] CLIA [id number] [facility] [place] [address] [place] [facility] CLIA [id number] [address] [place] [address] [place] #### 87591-7 #### [facility] CLIA [id number] [address] [place] [address] [place] Eosinophils/100 WBC (Bld) 2.1 % Normal [facility] Comment on above: Order Comment: Speci men Type: BLOOD SPECIMEN [facility]ing Facility: [facility] Address: [address] [place] [address] Performed By: #### 2 4331-1 #### [facility] CLIA [id number] [address] [place] [address] [place] [facility] CLIA [id number] [address] [place] [address] [place] #### 49202-7 #### [facility] CLIA [id number] [address] [place] [address] [place] Erythrocyte distribution width (RBC) [Ratio] 16.8 % High 11.5-15.0 [facility] Comment on above: Order Comment: Speci men Type: BLOOD SPECIMEN [facility] Facility[facility] Address: [address] [place] [address] Performed By: #### 2 4331-1 #### [facility] CLIA [id number] [address] [place] [address] [place] [facility] CLIA [id number] [address] [place] [address] [place] #### 83039-5 #### [facility] CLIA [id number] [address] [place] [address] [place] Hematocrit (Bld) [Volume fraction] 26.3 % Low 36.0-46.0 [facility] Comment on above: Order Comment: Speci men Type: BLOOD SPECIMEN [facility] Facility[facility] Address: [address] [place] [address] Performed By: #### 2 4331-1 #### [facility] CLIA [id number] [address] [place] [address] [place] [facility] CLIA [id number] [address] [place] [address] [place] #### 83783-9 #### [facility] CLIA [id number] [address] [place] [address] [place] Hemoglobin (Bld) [Mass/Vol] 8.7 g/dL Low 11.5-15.5 [facility] Comment on above: Order Comment: Speci men Type: BLOOD SPECIMEN [facility] Facility[facility] Address: [address] [place] [address] Performed By: #### 2 4331-1 #### [facility] CLIA [id number] [address] [place] [address] [place] [facility] [id number] [address] [place] [address] [place] #### 31927-6 #### [facility] CLIA [id number] [address] [place] [address] [place] Immature granulocytes (Bld) [#/Vol] 0.04 10*3/uL Normal <0.10 [facility] Comment on above: Order Comment: Speci men Type: BLOOD SPECIMEN [facility] Facility[facility] Address: [address] [place] [address] Performed By: #### 2 4331-1 #### [facility] CLIA [id number] [address] [place] [address] [place] [address] [place] [facility] CLIA [id number] [address] [place] [address] [place] #### 90853-3 #### [facility] CLIA [id number] [address] [place] [address] [place] Immature granulocytes/100 WBC (Bld) 0.6 % Normal [facility] Comment on above: Order Comment: Speci men Type: BLOOD SPECIMEN [facility] Facility[facility] Address: [address] [place] [address] Performed By: #### 2 4331-1 #### [facility] CLIA [id number] [address] [place] [address] [place] [facility] CLIA [id number] [address] [place] [address] [place] #### 56399-2 #### [facility] CLIA [id number] [address] [place] [address] [place] Lymphocytes (Bld) [#/Vol] 1.29 10*3/uL Normal 1.00-4.00 [facility] Comment on above: Order Comment: Speci men Type: BLOOD SPECIMEN [facility] Facility[facility] Address: [address] [place] [address] Performed By: #### 2 4331-1 #### [facility] CLIA [id number] [address] [place] [address] [place] [facility] CLIA [id number] [address] [place] [address] [place] #### 39648-9 #### [facility] CLIA [id number] [address] [place] [address] [place] Lymphocytes/100 WBC (Bld) 20.6 % Normal [facility] Comment on above: Order Comment: Speci men Type: BLOOD SPECIMEN [facility] Facility[facility] Address: [address] [place] [id number] Performed By: #### 2 4331-1 #### [facility] CLIA [id number] [address] [place] [address] [place] [facility] CLIA [id number] [address] [place] [address] [place] #### 54942-6 #### [facility] CLIA [id number] [address] [place] [address] [place] MCH (RBC) [Entitic mass] 31.6 pg Normal 26.0-34.0 [facility] Comment on above: Order Comment: Speci men Type: BLOOD SPECIMEN [facility] Facility[facility] Address: [address] [place] [address] Performed By: #### 2 4331-1 #### [facility] CLIA [id number] [address] [place] [address] [place] [facility] CLIA [id number] [address] [place] [address] [place] #### 19154-6 #### [facility] CLIA [id number] [address] [place] [address] [place] MCHC (RBC) [Mass/Vol] 33.1 g/dL Normal 30.5-36.0 [facility] Comment on above: Order Comment: Speci men Type: BLOOD SPECIMEN [facility] Facility[facility] Address: [address] [place] [id number] Performed By: #### 2 4331-1 #### [facility] CLIA [id number] [address] [place] [address] [place] [facility] CLIA [id number] [address] [place], [place] [id number] [place] #### 96029-4 #### [facility] CLIA [id number] [address] [place] [address] [place] MCV (RBC) [Entitic vol] 95.6 fL Normal 80.0-100.0 [facility] Comment on above: Order Comment: Speci men Type: BLOOD SPECIMEN [facility] Facility[facility] Address: [address] [place] [address] Performed By: #### 2 4331-1 #### [facility] CLIA [id number] [address] [place] [address] [place] [facility] [id number] [address] [place] [address] [place] #### 54845-7 #### [facility] CLIA [id number] [address] [place] [address] [place] Monocytes (Bld) [#/Vol] 0.82 10*3/uL Normal <0.87 [facility] Comment on above: Order Comment: Speci men Type: BLOOD SPECIMEN [facility] Facility[facility] Address: [address] [place] [address] Performed By: #### 2 4331-1 #### [facility] CLIA [id number] [address] [place] [address] [place] [facility] CLIA [id number] [address] [place] [address] [place] #### 82881-2 #### [facility] CLIA [id number] [address] [place] [address] [place] Monocytes/100 WBC (Bld) 13.1 % Normal C [facility] Comment on above: Order Comment: Speci men Type: BLOOD SPECIMEN [facility] Address: [address] [place] [address] Performed By: #### 2 4331-1 #### [facility] CLIA [id number] [address] [place] [address] [place] [facility] CLIA [id number] [address] [place] [address] [place] #### 41275-3 #### [facility] CLIA [id number] [address] [place] [address] [place] Neutrophils (Bld) [#/Vol] 3.92 10*3/uL Normal 1.45-7.50 [facility] Comment on above: Order Comment: Speci men Type: BLOOD SPECIMEN [facility] Facility[facility] Address: [address] [place] [address] Performed By: #### 2 4331-1 #### [facility] CLIA [id number] [address] [place] [address] [place] [facility] CLIA [id number] [address] [place] [address] [place] #### 90095-6 #### [facility] CLIA [id number] [address] [place] [address] [place] Neutrophils/100 WBC (Bld) 62.6 % Normal [facility] Comment on above: Order Comment: Speci men Type: BLOOD SPECIMEN [facility] Facility[facility] Address: [address] [place], [place] [address] Performed By: #### 2 4331-1 #### [facility] CLIA [id number] [address] [place] [address] [place] [facility] CLIA [id number] [address] [place] [address] [place] #### 69390-7 #### [facility] CLIA [id number] [address] [place] [address] [place] Nucleated RBC (Bld) [#/Vol] 10*3/uL Normal <0.01 [facility] Comment on above: Order Comment: Speci men Type: BLOOD SPECIMEN [facility] Facility[facility] Address: [address] [place], [place] [address] Performed By: #### 2 4331-1 #### [facility] CLIA [id number] [address] [place] [address] [place] [facility] CLIA [id number] [address] [place] [address] [place] #### 97574-9 #### [facility] CLIA [id number] [address] [place] [address] [place] Nucleated RBC/100 WBC (Bld) [Ratio] 0.0 /100 WBC Normal [facility] Comment on above: Order Comment: Speci men Type: BLOOD SPECIMEN [facility] Facility[facility] Address: [address] [place], [place] [address] Performed By: #### 2 4331-1 #### [facility] CLIA [id number] [address] [place] [address] [place] [facility] CLIA [id number] [address] [place] [address] [place] #### 51121-9 #### [facility] CLIA [id number] [address] [place] [address] [place] Platelet mean volume (Bld) [Entitic vol] 9.5 fL Normal 9.0-12.7 [facility] Comment on above: Order Comment: Speci men Type: BLOOD SPECIMEN [facility] Facility[facility] Address: [address] [place], [place] [address] Performed By: #### 2 4331-1 #### [facility] CLIA [id number] [address] [place] [address] [place] [facility] CLIA [id number] [address] [place] [address] [place] #### 80898-0 #### [facility] CLIA [id number] [address] [place] [address] [place] Platelets (Bld) [#/Vol] 202 10*3/uL Normal 150-400 [facility] Comment on above: Order Comment: Speci men Type: BLOOD SPECIMEN [facility] Facility[facility] Address: [address] [place] [address] Performed By: #### 2 4331-1 #### [facility] CLIA [id number] [address] [place] [address] [place] [facility] CLIA [id number] [address] [place] [address] [place] OF ROBERT #### 75391-3 #### [facility] CLIA [id number] [address] [place] [address] [place] RBC (Bld) [#/Vol] 2.75 10*6/uL Low 3.90-5.20 [facility] Comment on above: Order Comment: Speci men Type: BLOOD SPECIMEN [facility] Facility[facility] Address: [address] [place] [address] Performed By: #### 2 4331-1 #### [facility] CLIA [id number] [address] [place] [address] [place] [facility] CLIA [id number] [address] [place] [address] [place] #### 70586-4 #### [facility] CLIA [id number] [address] [place] [address] [place] WBC (Bld) [#/Vol] 6.26 10*3/uL Normal 3.70-11.00 [facility] Comment on above: Order Comment: Speci men Type: BLOOD SPECIMEN [facility] Facility[facility] Address: [address] [place] [address] Performed By: #### 2 4331-1 #### [facility] CLIA [id number] [address] [place] [address] [place] [facility] CLIA [id number] [address] [place] [address] [place] #### 83885-9 #### [facility] CLIA [id number] [address] [place] [address] [place] CNOVon 10-31-2024 CNOV Office Visit (FAMPWS ) BERTA SANCHES ([id number]) 1945 [facility] Date Time Provider Department 10/31/24 11:00 AM SHAYE DOMINGOBUCKY During your visit today, we recorded the following information about you: Pulse Blood pressure Weight 84/minute 147/68 64.4 kg Shaye Domingo, CLARITY DEVELOPER.KNIT GOODS MENDER 10/31/2024 12:52 PM Signed Chief Complaint Patient presents with: Hospital F/U [facility] Berta Sparkser is a 79 year old female who presents here today for Above Complaints.. Acute Mesenteric Ischemia: - Initially admitted to [facility] on 10/02/2024. - Underwent femoral ultrasound-guided angiogram with angioplasty and stenting of the SMA. - Required CRRT for MONIQUE post-op. - Developed AFib with RVR post-op. - Discharged after 23-day hospitalization. Acute on Chronic Heart Failure: - Given IV Lasix during initial admission. - Readmitted to [facility] on 10/15/2024 for acute on chronic decompensated [...] Pacemaker 10/21/[address] TRELL BARTLETT [id number] pulse generator, his bundle lead, right atrial lead Peripheral arterial disease (HCC) Rheumatic fever Steatosis, liver 03/26/2014 fatty liver on US. 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 Lua PACEMAKER 10/2019 PART. HYSTERECTOMY W/WO RMVL OVARIES/TUBES 1974 h/o cervical cancer ovaries remain PAST SURGICAL HISTORY OF 1996 Aortic valve repair, Dr. Apodaca PAST SURGICAL HISTORY OF 2001 [address] Beltrán, [facility] PAST SURGICAL HISTORY OF 2016 [...] mcg epi (more content not included)... Normal [facility] Comprehensive metabolic 2000 panelOrdered By: Shala Segura on 10-31-2024 Albumin [Mass/Vol] 4 g/dL 3.9 - 4.9 g/dL [facility] ALP [Catalytic activity/Vol] 81 U/L 34 - 123 U/L [facility] ALT [Catalytic activity/Vol] 10 U/L 7 - 38 U/L [facility] Anion gap [Moles/Vol] 11 mmol/L 8 - 15 mmol/L [facility] AST [Catalytic activity/Vol] 19 U/L 13 - 35 U/L [facility] Bilirubin [Mass/Vol] 1 mg/dL 0.2 - 1 .3 mg/dL [facility] Calcium [Mass/Vol] 9.3 mg/dL 8.5 - 10. 2 mg/dL [facility] Chloride [Moles/Vol] 83 mmol/L Low 98 - 10 7 mmol/L [facility] CO2 [Moles/Vol] 29 mmol/L 22 - 30 mmol/L [facility] Creatinine [Mass/Vol] 2.5 mg/dL High 0.58 - 0.96 mg/dL [facility] GFR/1.73 sq M.predicted among non-blacks MDRD (S/P/Bld) [Vol rate/Area] 19 mL/min/{1.73_m2} Low - PINF [facility] Comment on above: Estimated Glomerular Filtration [...] 138 mg/dL High 74 - 99 mg/dL [facility] Comment on above: The [place] Diabete s Association (ADA) provides guidance for [...] Standards of Medical Care in Diabetes 2016, [place] Diabetes Association. Diabetes Care. 2016.39(Suppl 1). Interpretation and review of laboratory results Abnormal [facility] Potassium [Moles/Vol] 3.8 mmol/L 3.7 - 5.1 mmol/L [facility] Protein [Mass/Vol] 7 g/dL 6.3 - 8.0 g/dL [facility] Sodium [Moles/Vol] 123 mmol/L Low 136 - 144 mmol/L [facility] Urea nitrogen [Mass/Vol] 53 mg/dL High 7 - 21 mg/dL [facility] metabolic 2000 panelon 10-31-2024 Albumin [Mass/Vol] 4.0 g/dL Normal 3.9-4.9 [facility] Comment on above: Order Comment: Speci men Type: BLOOD SPECIMEN [facility] Facility[facility] Address: [address] [place] [address] Performed By: #### 3 3762-6 #### [facility] CLIA [id number] [address] [place] [address] [place] ALP [Catalytic activity/Vol] 81 U/L Normal 34-123 [facility] Comment on above: Order Comment: Speci men Type: BLOOD SPECIMEN [facility] Facility[facility] Address: [address] [place] [address] Performed By: #### 3 3762-6 #### [facility] CLIA [id number] [address] [place] [address] [place] ALT [Catalytic activity/Vol] 10 U/L Normal 7-38 [facility] Comment on above: Order Comment: Speci men Type: BLOOD SPECIMEN [facility] Facility[facility] Address: [address] [place] [address] Performed By: #### 3 3762-6 #### [facility] CLIA [id number] [address] [place] [address] [place] Anion gap [Moles/Vol] 11 mmol/L Normal 8-15 [facility] Comment on above: Order Comment: Speci men Type: BLOOD SPECIMEN [facility] Facility: [facility] Address: [address] [place], [place] [address] Performed By: #### 3 3762-6 #### [facility] CLIA [id number] [address] [place] [address] [place] AST [Catalytic activity/Vol] 19 U/L Normal 13-35 [facility] Comment on above: Order Comment: Speci men Type: BLOOD SPECIMEN [facility]ing Facility: [facility] Address: [address] [place] [address] Performed By: #### 3 3762-6 #### [facility] CLIA [id number] [address] [place] [address] [place] Bilirubin [Mass/Vol] 1.0 mg/dL Normal 0.2-1.3 [facility] Comment on above: Order Comment: Speci men Type: BLOOD SPECIMEN [facility]ing Facility[facility] Address: [address] [place] [address] Performed By: #### 3 3762-6 #### [facility] CLIA [id number] [address] [place] [address] [place] Calcium [Mass/Vol] 9.3 mg/dL Normal 8.5-10.2 [facility] Comment on above: Order Comment: Speci men Type: BLOOD SPECIMEN [facility] Facility[facility] Address: [address] [place] [address] Performed By: #### 3 3762-6 #### [facility] CLIA [id number] [address] [place] [address] [place] Chloride [Moles/Vol] 83 mmol/L Low 98-107 [facility] Comment on above: Order Comment: Speci men Type: BLOOD SPECIMEN [facility] Facility[facility] Address: [address] [place] [address] Performed By: #### 3 3762-6 #### [facility] CLIA [id number] [address] [place], [place] [address] [place] CO2 [Moles/Vol] 29 mmol/L Normal 22-30 [facility] Comment on above: Order Comment: Speci men Type: BLOOD SPECIMEN [facility] Facility: [facility] Address: [address] [place] [address] Performed By: #### 3 3762-6 #### [facility] CLIA [id number] [address] [place] [address] [place] Creatinine [Mass/Vol] 2.50 mg/dL High 0.58-0.96 [facility] Comment on above: Order Comment: Annie ricci Type: BLOOD SPECIMEN [facility] Facility: [facility] Address: [address] [place] [address] Performed By: #### 3 3762-6 #### [facility] CLIA [id number] [address] [place] [address] [place] Creatinine and Glomerular filtration rate.predicted panel (S/P/Bld) 19 mL/min/1.73m??? Low >=60 [facility] Comment on above: Order Comment: Annie ricci Type: BLOOD SPECIMEN [facility]ing Facility: [facility] Address: [address] [place] [address] Result Comment: Mira mated Glomerular Filtration Rate [...] GFR. Performed By: #### 3 3762-6 #### [facility] CLIA [id number] [address] [place] [address] [place] Glucose [Mass/Vol] 138 mg/dL High 74-99 [facility] Comment on above: Order Comment: Annie ricci Type: BLOOD SPECIMEN [facility] Facility: [facility] Address: [address] [place] [address] Result Comment: The [place] Diabetes Association (ADA) provides guidance for cutoff [...] Standards of Medical Care in Diabetes 2016, [place] Diabetes Association. Diabetes Care. 2016.39(Suppl 1). Performed By: #### 3 3762-6 #### [facility] CLIA [id number] [address] [place] [address] [place] Potassium [Moles/Vol] 3.8 mmol/L Normal 3.7-5.1 [facility] Comment on above: Order Comment: Speci men Type: BLOOD SPECIMEN [facility] Facility: [facility] Address: [address] [place] [address] Performed By: #### 3 3762-6 #### [facility] CLIA [id number] [address] [place] [address] [place] Protein [Mass/Vol] 7.0 g/dL Normal 6.3-8.0 [facility] Comment on above: Order Comment: Speci men Type: BLOOD SPECIMEN [facility]ing Facility: [facility] Address: [address] [place] [address] Performed By: #### 3 3762-6 #### [facility] CLIA [id number] [address] [place] [address] [place] Sodium [Moles/Vol] 123 mmol/L Low 136-144 [facility] Comment on above: Order Comment: Speci men Type: BLOOD SPECIMEN [facility]ing Facility: [facility] Address: [address] [place] [address] Performed By: #### 3 3762-6 #### [facility] CLIA [id number] [address] [place] [address] [place] Urea nitrogen [Mass/Vol] 53 mg/dL High 7-21 [facility] Comment on above: Order Comment: Speci men Type: BLOOD SPECIMEN [facility]ing Facility: [facility] Address: [address] [place], [place] [address] Performed By: #### 3 3762-6 #### [facility] CLIA [id number] [address] [place] [address] [place] MAGNESIUMon 10-31-2024 Magnesium [Mass/Vol] 2 mg/dL 1.7 - 2 .3 mg/dL [facility] Magnesium SerPl-mCncon 10-31 Magnesium [Mass/Vol] 2.0 mg/dL Normal 1.7-2.3 [facility] Comment on above: Order Comment: Speci men Type: BLOOD SPECIMEN [facility] Facility[facility] Address: [address] [place] [address] Performed By: #### 2 4331-1 #### [facility] CLIA [id number] [address] [place] [address] [place] [facility] CLIA [id number] [address] [place] [address] [place] #### 47515-5 #### [facility] CLIA [id number] [address] [place] [address] [place] Magnesium [Mass/Vol]on 10-31 Interpretation and review of laboratory results Normal [facility] No Panel InformationOrdered By: Shala Segura on 10-31-2024 [facility] CNPShantelle [facility] BERTA SANCHES ([id number]) 1945 [place] Date Time Provider Department 10/12/24 ALBIN GU [facility] During your visit today, we recorded the following information about you: Albin Gu APRN.KNIT GOODS MENDER 10/12/2024 12:36 PM Signed Patient called to [...] questions answered at this time. Albin Gu APRN.KNIT GOODS MENDER Allergies As of Date: 10/12/2024 Noted Allergy [...] 02/26/2014 03/21/2022 Intracranial aneurysm [I67.1] 08/30/2015 10/05/2022 nursing home current use of antiarrhythmic medical*10/20/2016 09/12/2021 [...] fistula [N32.1] 06/15/2019 (more content not included)... [facility] 07-31-2024 [facility] Telephone ([facility]) BERTA SANCHES ([id number]) 1945 [facility] Date Time Provider Department 07/31/24 MELIDA KOO [facility] During your visit today, we recorded the following information about you: Melida Koo APRN.CNP 07/31/2024 12:00 PM Signed Pt called to request refill for KDur as she has run out of prescription. She states that she is currently in [place] and will be in [place] until October. [facility] called in [place], [place]. Spoke with Pharmacist on duty. Rx for KDur 10 meq PO daily given verbally #90 with no refills. Melida Koo APRN.KNIT GOODS MENDER Allergies As of Date: 07/31/2024 Noted Allergy [...] 02/26/2014 03/21/2022 Intracranial aneurysm [I67.1] 08/30/2015 10/05/2022 nursing home current use of antiarrhythmic medical*10/20/2016 09/12/2021 [...] for sup (more content not included)... Normal [facility] 25(OH)D3 [facility] 2024 25-hydroxyvitamin D3 [Mass/Vol] 41.9 ng/mL Normal 31.0-80.0 [facility] Comment on above: Order Comment: Speci men Type: BLOOD SPECIMEN [facility] Facility[facility] Address: [address] [place] [address] Result Comment: Clas sification of 25 [place] Vitamin D status: Deficiency/Insufficiency: < or = 30 ng/ml. Sufficiency/Optimal Levels: 31-80 ng/mL Toxicity: > 100 ng/mL. Test performed by chemiluminescent immunoassay. Performed By: #### 2 4331-1 #### [facility] CLIA [id number] [address] [place] [address] [place] [facility] CLIA [id number] [address] [place] [address] [place] #### 10415-8 #### [facility] CLIA [id number] [address] [place] [address] [place] ALBUMIN/CREATININE RATIO, UR INEon 07-07-2024 Albumin DL <= 20 mg/L (U) [Mass/Vol] 21.0 mg/L Normal [facility] Comment on above: Order Comment: Speci men Type: BLOOD SPECIMEN [facility] Facility[facility] Address: [address] [place] [address] Performed By: #### 2 4331-1 #### [facility] CLIA [id number] [address] [place] [address] [place] [facility] CLIA [id number] [address] [place] [address] [place] #### 32257-5 #### [facility] CLIA [id number] [address] [place] [address] [place] Albumin/Creatinine (U) [Mass ratio] 34 mg/g High <30 [facility] Comment on above: Order Comment: Speci men Type: BLOOD SPECIMEN [facility] Facility[facility] Address: [address] [place] [address] Result Comment: Adul t Male and Female Nephrotic Criteria: <30 mg/g is considered normal to mildly increased 30-300 mg/g is considered moderately increased >300 mg/g is considered severely increased KDIGO. (2013). KDIGO 2012 Clinical Practice Guideline for the Evaluation and Management of Chronic Kidney Disease. Official Journal of the International Society of Nephrology, 3(1), 1-150. Performed By: #### 2 4331-1 #### [facility] CLIA [id number] [address] [place] [address] [place] [facility] CLIA [id number] [address] [place] [address] [place] #### 76430-5 #### [facility] CLIA [id number] [address] [place] [address] [place] Creatinine (U) [Mass/Vol] 61.6 mg/dL Normal 20.0-300.0 [facility] Comment on above: Order Comment: Speci men Type: BLOOD SPECIMEN [facility] Facility[facility] Address: [address] [place] [address] Performed By: #### 2 4331-1 #### [facility] CLIA [id number] [address] [place] [address] [place] [facility] CLIA [id number] [address] [place] [address] [place] #### 35165-6 #### [facility] CLIA [id number] [address] [place] [address] [place] Basic metabolic 2000 panelon 07-07-2024 Anion gap [Moles/Vol] 13 mmol/L Normal 8-15 [facility] Comment on above: Order Comment: Speci men Type: BLOOD SPECIMEN [facility] Facility[facility] Address: [address] [place] [address] Performed By: #### 3 3762-6 #### [facility] CLIA [id number] [address] [place] [address] [place] Calcium [Mass/Vol] 9.8 mg/dL Normal 8.5-10.2 [facility] Comment on above: Order Comment: Speci men Type: BLOOD SPECIMEN [facility] Facility[facility] Address: [address] [place] [address] Performed By: #### 3 3762-6 #### [facility] CLIA [id number] [facility] [place] [address] [place] Chloride [Moles/Vol] 100 mmol/L Normal 98-107 [facility] Comment on above: Order Comment: Speci men Type: BLOOD SPECIMEN [facility] Facility[facility] Address: [address] [place] [address] Performed By: #### 3 3762-6 #### [facility] CLIA [id number] [address] [place] [address] [place] CO2 [Moles/Vol] 25 mmol/L Normal 22-30 [facility] Comment on above: Order Comment: Speci men Type: BLOOD SPECIMEN [facility] Facility[facility] Address: [address] [place] [address] Performed By: #### 3 3762-6 #### [facility] CLIA [id number] [address] [place] [address] [place] Creatinine [Mass/Vol] 1.12 mg/dL High 0.58-0.96 [facility] Comment on above: Order Comment: Speci men Type: BLOOD SPECIMEN [facility] Facility[facility] Address: [address] [place] [address] Performed By: #### 3 3762-6 #### [facility] CLIA [id number] [address] [place] [address] STATES [place] [facility] Creatinine and Glomerular filtration rate.predicted panel (S/P/Bld) 50 mL/min/1.73m??? Low >=60 [facility] Comment on above: Order Comment: Speci men Type: BLOOD SPECIMEN [facility] Facility[facility] Address: [address] [place] [address] Result Comment: Mira mated Glomerular Filtration Rate [...] GFR. Performed By: #### 3 3762-6 #### [facility] CLIA [id number] [address] [place] [address] [place] Glucose [Mass/Vol] 118 mg/dL High 74-99 [facility] Comment on above: Order Comment: Speci men Type: BLOOD SPECIMEN [facility] Address: [address] [place] [address] Result Comment: The [place] Diabetes Association (ADA) provides guidance for cutoff [...] Standards of Medical Care in Diabetes 2016, [place] Diabetes Association. Diabetes Care. 2016.39(Suppl 1). Performed By: #### 3 3762-6 #### [facility] CLIA [id number] [address] [place] [address] [place] Potassium [Moles/Vol] 4.4 mmol/L Normal 3.7-5.1 [facility] Comment on above: Order Comment: Kunali keiry Type: BLOOD SPECIMEN [facility] Facility[facility] Address: [address] [place] [address] Performed By: #### 3 3762-6 #### [facility] CLIA [id number] [address] [place] [address] [place] Sodium [Moles/Vol] 138 mmol/L Normal 136-144 [facility] Comment on above: Order Comment: Speci men Type: BLOOD SPECIMEN [facility] Address: [address] [place] [address] Performed By: #### 3 3762-6 #### [facility] CLIA [id number] [address] [place] [address] [place] Urea nitrogen [Mass/Vol] 34 mg/dL High 7-21 [facility] Comment on above: Order Comment: Kunali men Type: BLOOD SPECIMEN [facility] Address: [address] [place] [address] Performed By: #### 3 3762-6 #### [facility] DAMIANIA [id number] [address] [place] [address] [place] [address] [place] CNOVon 07-07-2024 CNOV Office Visit (FAMPWS ) BERTA SANCHES ([id number]) 1945 F [place] Date Time Provider Department 07/07/24 8:00 AM DEYSI COLLAZO During your visit today, we recorded the following information about you: Pulse Respiration Blood pressure Weight 69/minute 16/minute 136/70 63.5 kg Deysi Collazo APRN.KNIT GOODS MENDER 07/07/2024 12:41 PM Signed This is a 78 year old female who presents today with: Patient presents with: Establish [facility] HISTORY OF PRESENT ILLNESS: Berta Sanches is a 78 year old female. Patient presents with: Establish Care Pt presents today to [facility]. HTN: Patient is compliant with [...] Pacemaker 10/21/[address] TRELL BARTLETT W1DR01 pulse generator, his bundle lead, right atrial lead Peripheral arterial disease (HCC) Rheumatic fever Steatosis, liver 03/26/2014 fatty liver on US. 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 Wartman PACEMAKER 10/2019 PART. HYSTERECTOMY W/WO RMVL OVARIES/TUBES 1974 h/o cervical cancer ovaries remain PAST SURGICAL HISTORY OF 1996 Aortic valve repair, Dr. Apodaca PAST SURGICAL HISTORY OF 2001 [address] Beltrán, [facility] PAST SURGICAL HISTORY OF 2015 [...] once daily. (more content not included)... Normal [facility] HbA1c (Bld)on 07-07-2024 Average glucose Estimated from glycated hemoglobin (Bld) [Mass/Vol] 151 mg/dL Normal [facility] Comment on above: Order Comment: Annie ricci Type: BLOOD SPECIMEN [facility] Facility[facility] Address: [address] [place] [address] Result Comment: eAG: (Estimated average glucose) is a calculated value from HgbA1c and is patient account representative of the average blood glucose level in the last 2-3 month period. Performed By: #### 3 3762-6 #### [facility] CLIA [id number] [address] [place] [address] [place] HbA1c (Bld) [Mass fraction] 6.9 % High 4.3-5.6 [facility] Comment on above: Order Comment: Annie ricci Type: BLOOD SPECIMEN [facility] Facility[facility] Address: [address] [place] [address] Result Comment: [place] Diabetes Association guidelines indicate that patients with HgbA1c in the range 5.7-6.4% are at increased risk for development of diabetes, and intervention by lifestyle modification may be beneficial. HgbA1c greater or equal to 6.5% is considered diagnostic of diabetes. Performed By: #### 3 3762-6 #### [facility] CLIA [id number] [address] [place] [address] [place] TSH SerPl-aCncon 07-07-2024 TSH Qn 2.650 m[IU]/L Normal 0.270-4.200 [facility] Comment on above: Order Comment: Speci men Type: BLOOD SPECIMEN [facility] Facility[facility] Address: [address] [place] [address] Performed By: #### 3 3762-6 #### [facility] CLIA [id number] [address] [place] [address] OF ROBERT CNOVon 04-07-2024 [facility] ) BERTA SANCHES ([id number]) 1945 F [facility] Date Time Provider Department 04/07/24 9:00 AM ALBIN GU [facility] During your visit today, we recorded the following information about you: Pulse Blood pressure Weight 91/minute 142/47 62.1 kg Albin Gu APRN.KNIT GOODS MENDER 04/07/2024 9:57 AM Signed [facility] [place] [facility] OUTPATIENT VISIT DATE April 07, 2024 OUTPATIENT VISIT TYPE ESTABLISHED PRIMARY CARE PHYSICIAN: Doreen Le PA-C CHIEF COMPLAINT: Patient presents with: Breathing Problem Leg Edema HISTORY OF PRESENT ILLNESS: Berta Manzanares Verónica is a 78 year old female who [...] a boat and take it out on [place] to fish. IMPRESSION: NYHA Functional Class: II [...] moderate car (more content not included)... Normal [facility] 02-21-2024 [facility] Telephone ([facility]) VERÓNICABERTA TIENO ([id number]) 1945 F [place] Date Time Provider Department 02/21/24 MELIDA KOO [facility] During your visit today, we recorded [...] 02/26/2014 03/21/2022 Intracranial aneurysm [I67.1] 08/30/2015 10/05/2022 manager terminal current use of antiarrhythmic medical*10/20/2016 09/12/2021 Prosthetic [...] pulmonary embolism [Z86.711] 03/27/2019 Ascending [facility] dilatation ([facility] [I77.810] 03/27/2019 Chronic bilateral pleural effusions [J90] 03/27/2019 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 Normal [facility] NT-proBNP [facility] 02-14 Natriuretic peptide.B prohormone N-Terminal [Mass/Vol] 5922 pg/mL High <450 [facility] Comment on above: Order Comment: Speci men Type: BLOOD SPECIMEN [facility] Address: [address] [place] [address] Performed By: #### 3 3762-6 #### [facility] CLIA [id number] [address] [place] [address] [place] [address] [place] CNPShantelle 02-07-2024 CNPN Telephone ([facility]) BERTA SANCHES ([id number]) 1945 F [place] Date Time Provider Department 02/07/24 MELIDA KOO [facility] During your visit today, we recorded the following information about you: Melida Koo APRN.KNIT GOODS MENDER 02/07/2024 8:28 AM Signed Pt called and left message on voicemail stating that she was feeling much better since following instructions that Albin Gu had given her. She reported that SOB and edema was improved. She has concerns about NTpBNP and when she should have that rechecked. Called patient and she did not answer. Message left for call back. Melida Koo APRN.KNIT GOODS MENDER Allergies As of Date: 02/07/2024 Noted Allergy [...] 02/26/2014 03/21/2022 Intracranial aneurysm [I67.1] 08/30/2015 10/05/2022 nursing home current use of antiarrhythmic medical*10/20/2016 09/12/2021 [...] and diastoli*09/19/2020 05 (more content not included)... [facility] 02-04-2024 [facility] Telephone ([facility]) VERÓNICABERTA TINEO ([id number]) 1945 F [place] Date Time Provider Department 02/04/24 MARIBELL KING During your visit today, we recorded the following information about you: Ying Fuentes LPN 02/04/2024 2:12 PM Signed ----- Message from Maribell King APRN.KNIT GOODS MENDER sent at 02/04/2024 2:02 PM EDT ----- [...] [N18.9] Order(s):BASIC METABOLIC PANEL [SQBMP] Order #: [id number] FUTURE Prescriptions as of 02/07/2024 - furosemide [...] 02/26/2014 03/21/2022 Intracranial aneurysm [I67.1] 08/30/2015 10/05/2022 manager terminal current use of antiarrhythmic medical*10/20/2016 09/12/2021 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 [facility] SAN[facility] ([id number]) 1945 F [facility] Date Time Provider Department 02/04/24 ALBIN GU [facility] During your visit today, we recorded the following information about you: Albin Gu APRN.KNIT GOODS MENDER 02/04/2024 11:36 AM Signed Returned patient phone [...] 02/26/2014 03/21/2022 Intracranial aneurysm [I67.1] 08/30/2015 10/05/2022 manager terminal current use of antiarrhythmic medical*10/20/2016 09/12/2021 Prosthetic [...] blood loss (more content not included)... Normal [facility] Comprehensive metabolic 2000 panelon 02-03-2024 Albumin [Mass/Vol] 4.0 g/dL Normal 3.9-4.9 [facility] Comment on above: Order Comment: Annie ricci Type: BLOOD SPECIMEN [facility] Facility[facility] Address: [address] [place] [address] Performed By: #### 3 3762-6 #### [facility] CLIA [id number] [address] [place] [address] [place] ALP [Catalytic activity/Vol] 102 U/L Normal 34-123 [facility] Comment on above: Order Comment: Annie ricci Type: BLOOD SPECIMEN [facility] Facility[facility] Address: [address] [place] [address] Performed By: #### 3 3762-6 #### [facility] CLIA [id number] [address] [place] [address] [place] ALT [Catalytic activity/Vol] 10 U/L Normal 7-38 [facility] Comment on above: Order Comment: Speci men Type: BLOOD SPECIMEN [facility] Facility[facility] Address: [address] [place], [place] [address] Performed By: #### 3 3762-6 #### [facility] CLIA [id number] [address] [place], [place] [address] [place] Anion gap [Moles/Vol] 11 mmol/L Normal 8-15 [facility] Comment on above: Order Comment: Speci men Type: BLOOD SPECIMEN [facility] Facility[facility] Address: [address] [place] [address] Performed By: #### 3 3762-6 #### [facility] CLIA [id number] [address] [place] [address] [place] AST [Catalytic activity/Vol] 16 U/L Normal 13-35 [facility] Comment on above: Order Comment: Speci men Type: BLOOD SPECIMEN [facility] Facility[facility] Address: [address] [place], [place] [address] Performed By: #### 3 3762-6 #### [facility] CLIA [id number] [address] [place], [place] [address] [place] Bilirubin [Mass/Vol] 1.1 mg/dL Normal 0.2-1.3 [facility] Comment on above: Order Comment: Speci men Type: BLOOD SPECIMEN [facility] Facility[facility] Address: [address] [place], [place] [address] Performed By: #### 3 3762-6 #### [facility] CLIA [id number] [address] [place], [place] [address] [place] Calcium [Mass/Vol] 9.5 mg/dL Normal 8.5-10.2 [facility] Comment on above: Order Comment: Speci men Type: BLOOD SPECIMEN [facility] Facility[facility] Address: [address] [place] [address] Performed By: #### 3 3762-6 #### [facility] CLIA [id number] [address] [place] [address] [place] Chloride [Moles/Vol] 98 mmol/L Normal 98-107 [facility] Comment on above: Order Comment: Speci men Type: BLOOD SPECIMEN [facility] Facility[facility] Address: [address] [place] [address] Performed By: #### 3 3762-6 #### [facility] CLIA [id number] [address] [place] [address] [place] CO2 [Moles/Vol] 22 mmol/L Normal 22-30 [facility] Comment on above: Order Comment: Speci men Type: BLOOD SPECIMEN [facility] Address: [address] [place] [address] Performed By: #### 3 3762-6 #### [facility] CLIA [id number] [address] [place] [address] [place] Creatinine [Mass/Vol] 1.28 mg/dL High 0.58-0.96 [facility] Comment on above: Order Comment: Speci men Type: BLOOD SPECIMEN [facility] Facility[facility] Address: [address] [place] [address] Performed By: #### 3 3762-6 #### [facility] CLIA [id number] [address] [place] [address] [place] Creatinine and Glomerular filtration rate.predicted panel (S/P/Bld) 43 mL/min/1.73m??? Low >=60 [facility] Comment on above: Order Comment: Speci men Type: BLOOD SPECIMEN [facility] Facility[facility] Address: [address] [place] [address] Result Comment: Mira mated Glomerular Filtration Rate (eGFR) is calculated using the 2021 CKD-EPI creatinine equation. This equation utilizes serum creatinine, sex, and age as parameters. The creatinine assay has traceable calibration to isotope dilution-mass spectrometry. Refer to KDIGO guidelines for clinical interpretation. In patients with unstable renal function, e.g. those with acute kidney injury, the eGFR may not accurately reflect actual GFR. Performed By: #### 3 3762-6 #### [facility] CLIA [id number] [address] [place] [address] [place] Glucose [Mass/Vol] 147 mg/dL High 74-99 [facility] Comment on above: Order Comment: Annie ricci Type: BLOOD SPECIMEN [facility] Facility: [facility] Address: [address] [place] [address] Result Comment: The [place] Diabetes Association (ADA) provides guidance for cutoff [...] Standards of Medical Care in Diabetes 2016, [place] Diabetes Association. Diabetes Care. 2016.39(Suppl 1). Performed By: #### 3 3762-6 #### [facility] CLIA [id number] [address] [place], [place] [address] [place] Potassium [Moles/Vol] 4.8 mmol/L Normal 3.7-5.1 [facility] Comment on above: Order Comment: Annie ricci Type: BLOOD SPECIMEN [facility] Facility: [facility] Address: [address] [place] [id number] Performed By: #### 3 3762-6 #### [facility] CLIA [id number] [address] [place] [address] [place] Protein [Mass/Vol] 7.2 g/dL Normal 6.3-8.0 [facility] Comment on above: Order Comment: Speci men Type: BLOOD SPECIMEN [facility] Facility[facility] Address: [address] [place] [address] Performed By: #### 3 3762-6 #### [facility] CLIA [id number] [address] [place] [address] [place] Sodium [Moles/Vol] 131 mmol/L Low 136-144 [facility] Comment on above: Order Comment: Speci men Type: BLOOD SPECIMEN [facility] Facility[facility] Address: [address] [place] [address] Performed By: #### 3 3762-6 #### [facility] CLIA [id number] [address] [place] [address] [place] Urea nitrogen [Mass/Vol] 34 mg/dL High 7-21 [facility] Comment on above: Order Comment: Speci men Type: BLOOD SPECIMEN [facility] Facility[facility] Address: [address] [place] [address] Performed By: #### 3 3762-6 #### [facility] CLIA [id number] [address] [place] [address] [place] Lipid 1996 panelon 4 Cholesterol [Mass/Vol] 98 mg/dL Normal <200 [facility] Comment on above: Order Comment: Speci men Type: BLOOD SPECIMEN [facility] Facility[facility] Address: [address] [place] [address] Result Comment: <200 mg/dL, Desirable 200-239 mg/dL, Borderline high >239 mg/dL, High Performed By: #### 2 4331-1 #### [facility] CLIA [id number] [address] [place], [place] [id number] [place] [facility] CLIA [id number] [address] [place] [address] [place] #### 67200-9 #### [facility] CLIA [id number] [address] [place] [address] [place] Cholesterol in HDL [Mass/Vol] 34 mg/dL Low >39 [facility] Comment on above: Order Comment: Speci men Type: BLOOD SPECIMEN [facility] Address: [address] [place] [address] Result Comment: 40-5 9 mg/dL, Acceptable >59 mg/dL, High: Negative risk factor for coronary heart disease <40 mg/dL, Low: Positive risk factor for coronary heart disease Performed By: #### 2 4331-1 #### [facility] CLIA [id number] [address] [place] [address] [place] [facility] CLIA [id number] [address] [place] [address] [place] #### 01832-9 #### [facility] CLIA [id number] [address] [place] [address] [place] Cholesterol in LDL [Mass/Vol] 51 mg/dL Normal <100 [facility] Comment on above: Order Comment: Speci men Type: BLOOD SPECIMEN [facility] Address: [address] [place] [address] Result Comment: <100 mg/dL, Optimal 100-129 mg/dL, Near optimal/above optimal 130-159 mg/dL, Borderline high 160-189 mg/dL, High >189 mg/dL, Very high Secondary prevention optimal LDL Cholesterol levels are recommended to be < 70 mg/dL Performed By: #### 2 4331-1 #### [facility] CLIA [id number] [address] [place] [address] [place] [facility] CLIA [id number] [address] [place] [address] [place] #### 93703-5 #### [facility] CLIA [id number] [address] [place] [address] STATES [facility] Cholesterol in LDL/Cholesterol in HDL [Mass ratio] 1.50 {ratio} Normal <2.54 [facility] Comment on above: Order Comment: Speci men Type: BLOOD SPECIMEN [facility] Address: [address] [place] [address] Result Comment: Hussein phillips: 1. National Cholesterol Education Program ATP III Guideline At-A-Glance Quick Desk Reference: National Heart, Lung, and Blood [place]. National Institutes of Health. 2001: NIH Publication No. 01-3305. 2. An International Atherosclerosis Society position paper: global recommendations for the management of dyslipidemia: executive summary, Atherosclerosis. 2014: 232(2):410-413. Performed By: #### 2 4331-1 #### [facility] CLIA [id number] [address] [place] [address] [place] [address] [place] #### 69476-4 #### [facility] CLIA [id number] [address] [place] [address] [place] Cholesterol in VLDL [Mass/Vol] 13 mg/dL Normal <30 [facility] Comment on above: Order Comment: Speci men Type: BLOOD SPECIMEN [facility] Address: [address] [place] [address] Performed By: #### 2 4331-1 #### [facility] CLIA [id number] [address] [place] [address] [place] [facility] [address] [place] [address] [place] #### 72719-7 #### [facility] CLIA [id number] [address] [place] [address] [place] Cholesterol non HDL [Mass/Vol] 64 mg/dL Normal <130 [facility] Comment on above: Order Comment: Speci men Type: BLOOD SPECIMEN [facility] Address: [address] [place] [address] Result Comment: <130 mg/dL, Optimal 130-159 mg/dL, Near optimal/above optimal 160-189 mg/dL, Borderline high 190-219 mg/dL, High >219 mg/dL, Very high Secondary prevention optimal non HDL Cholesterol levels are recommended to be <100 mg/dL Performed By: #### 2 4331-1 #### [facility] CLIA [id number] [address] [place] [address] [place] [facility] [id number] [place] [address] [place] #### 59387-0 #### [facility] CLIA [id number] [address] [place] [address] [place] Cholesterol.total/Gin sterol in HDL [Mass ratio] 2.88 {ratio} Normal <5.10 [facility] Comment on above: Order Comment: Speci men Type: BLOOD SPECIMEN [facility] Address: [address] [place] [address] Performed By: #### 2 4331-1 #### [facility] CLIA [id number] [address] [place] [address] [place] [facility] [id number] [address] [place] [address] [place] #### 01543-6 #### [facility] CLIA [id number] [address] [place] [address] [place] FASTING TIME 12 hrs Normal [facility] Comment on above: Order Comment: Speci men Type: BLOOD SPECIMEN [facility] Address: [address] [place] [address] Performed By: #### 2 4331-1 #### [facility] CLIA [id number] [address] [place] [address] [place] [facility] CLIA [id number] [address] [place] [address] [place] #### 47268-1 #### [facility] CLIA [id number] [address] [place] [address] [place] Triglyceride [Mass/Vol] 67 mg/dL Normal <150 [facility] Comment on above: Order Comment: Speci men Type: BLOOD SPECIMEN [facility] Address: [address] [place] [address] Result Comment: <150 mg/dL, Normal 150-199 mg/dL, Borderline high 200-499 mg/dL, High >499 mg/dL, Very high Performed By: #### 2 4331-1 #### [facility] CLIA [id number] [address] [place] [address] [place] [facility] CLIA [id number] [address] [place] [address] [place] #### 48043-7 #### [facility] CLIA [id number] [address] [place] [address] [place] NT-proBNP [facility] 02-02 Natriuretic peptide.B prohormone N-Terminal [Mass/Vol] 8577 pg/mL High <450 [facility] Comment on above: Order Comment: Speci men Type: BLOOD SPECIMEN [facility] Address: [address] [place], [place] [address] Performed By: #### 2 4331-1 #### [facility] CLIA [id number] [address] [place] [address] [place] [facility] CLIA [id number] [address] [place] [address] [place] #### 49076-0 #### [facility] CLIA [id number] [address] [place], [place] [address] [place] [address] [place] Phosphate SerPl-mCncon 02-02 Phosphate [Mass/Vol] 3.3 mg/dL Normal 2.7-4.8 [facility] Comment on above: Order Comment: Speci men Type: BLOOD SPECIMEN [facility] Address: [address] [place] [address] Performed By: #### 3 3762-6 #### [facility] CLIA [id number] [address] [place] [address] OF ROBERT CNOVon 01-17-2024 CNOV Office Visit ([facility] ) BERTA SANCHES ([id number]) 1945 [facility] Date Time Provider Department 01/17/24 9:20 AM CARLA BURDICK During your visit today, we recorded the following information about you: Pulse Blood pressure Weight Height 64/minute 157/59 66.8 kg 1.575 m Carla Burdick MD 01/17/2024 10:36 AM [facility] SECTION OF REGIONAL CARDIOLOGY Cardiology ([facility]) [address] [facility] [id number] OUTPATIENT VISIT DATE 01/17/2024 PRIMARY CARE PHYSICIAN: Doreen Le [address] [place] [id number] HISTORY OF PRESENT ILLNESS: Ms. Sanches is [...] Pacemaker 10/21/[address] TRELL BARTLETT W1DR01 pulse generator, his bundle lead, right atrial lead Peripheral arterial disease (HCC) Rheumatic fever Steatosis, liver 03/26/2014 fatty liver on US. 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 Lua PACEMAKER 10/2019 PART. HYSTERECTOMY W/WO RMVL OVARIES/TUBES 1974 h/o cervical cancer ovaries remain PAST SURGICAL HISTORY OF 1996 Aortic valve repair, Dr. Apodaca PAST SURGICAL HISTORY OF 2001 [address] Beltrán, [facility] PAST SURGICAL HISTORY OF 2015 [...] shortly af (more content not included)... Normal [facility] HEALTH 11-08-2023 ALLIED HEALTH HNO ID: [id number] Author: SONY MOJICA RT(R) Service: Radiology Author Type: Technologist Type: [...] PATIENT PRESENTS WITH AN IMPLANTABLE OR ATTACHED AIRCRAFT MAGNETO MECHANIC: No RADIOLOGY DEPARTMENT: General X-ray: Exam(s) Completed: Chest X-Ray PERIPHERAL IV DATA: Not applicable SIGNED BY: Sony Mojica RT(R) November 08, 2023 6:37 PM [facility] ED PROV NOTEon 11-08-2023 ED PROV NOTE HNO ID: [id number] Author: SHUBHAM CHAUDHRY MD Service: ? Author Type: Physician Type: ED Provider Notes Filed: 11/08/2023 20:32 Note Text: Left after being seen in triage. Called patient and recommended she come back due to her presenting sxs. States she will come back. SIGNATURE: Shubham Chaudhry MD PATIENT NAME: Berta Sanches DATE: November 08, 2023 TIME: 8:31 PM PAGER/CONTACT #: SHUBHAM CHAUDHRY 11/08/232031 [facility] ED Triage Noteon 11-08-2023 ED Triage Note HNO ID: [id number] Author: SHUBHAM CHAUDHRY MD Service: ? Author [...] TROPONIN T EKG SIGNATURE: Shubham Chaudhry MD [facility] EKGon 11-08-2023 Electrocardiogram Ventricular Rate : 1 13 BPM Atrial Rate : 0 BPM P-R Interval : 250 ms QRS Duration : 102 ms Q-T Interval : 320 ms QTC Calculation(Bazett) : 439 ms Calculated P [place] : -38 degrees Calculated R [place] : -29 degrees Calculated T [place] : 132 degrees Sinus tachycardia Prolonged GA interval LVH with secondary repolarization abnormality Abnormal ECG No Stemi 1746 Confirmed by MD CHAUDHRY BLAIN ([id number]), make up editor BRYON MIJARES ([id number]) on 11/08/2023 10:31:52 PM NAME : BERTA SANCHES PID : [id number] : 1945 Gender : Female Race : ORD : Procedure Date : Nov 08 2023 17:44:03 Edit Date : Nov 08 2023 22:31:54 Diagnosis: Sinus tachycardia Prolonged GA interval LVH with secondary repolarization abnormality Abnormal ECG No Stemi 1746 Confirmed by MD CHAUDHRY BLAIN ([id number]), make up editor BRYON MIJARES ([id number]) on 11/08/2023 10:31:52 PM Test Reason : Location : 402 : [facility] TRIAGE Overread By : MD CHAUDHRY BLAIN Edited By : BRYON MIJARES Referred By : , Acquired by : [id number], Normal [facility] XR CHEST 2V FRONTAL/LATon XR CHEST [...] Query hilar lymphadenopathy. No confluent alveolar opacity. Apartment Leasing Specialist: PSCB Transcribe Date/Time: Nov 08 2023 7:38P Dictated by : LIZZIE LARA MD This examination was interpreted and the report reviewed and electronically signed by: LIZZIE LARA MD on Nov 08 2023 7:44PM EST [id number] Normal [facility] Lower extremity veins - b ilateralon 10-20-2023 Non-Invasive Vascular Laboratory [facility] Lower Extremity Venous Duplex [...] below for Image [facility] ECG COMPLETEon 10-19-2023 Atrial Rate 125 BPM [facility] Calculated R [place] -40 [facility] Calculated T [place] -34 degrees [facility] QRS Duration 106 ms [facility] QT Interval 410 ms [facility] QTC Calculation (Bazett) 490 ms [facility] Ventricular Rate 86 BPM [facility] XR Chest PA and Lateralon IMPRESSION: No acute radiographic abnormality. Cardiomegaly Apartment Leasing Specialist: JAMES Transcribe Date/Time: Oct 18 2023 4:16P Dictated by : MICHAELLE BAHENA MD This examination was interpreted and the report reviewed and electronically signed by: MICHAELLE BAHENA MD on Oct 18 2023 4:18PM [facility] DIVISION OF RADIOLOGY * * [...] soft tissues: Unremarkable. DIVISION OF RADIOLOGY Provider, [facility] - 10/18/2023 * * *Final Report* [...] IMPRESSION IMPRESSION: No acute radiographic abnormality. Cardiomegaly Apartment Leasing Specialist: PSCB Transcribe Date/Time: Oct 18 2023 4:16P Dictated by : MICHAELLE BAHENA MD This examination was interpreted and the report reviewed and electronically signed by: MICHAELLE BAHENA MD on Oct 18 2023 4:18PM [facility] Rad[facility]narrative[facility] Chest PA and LateralOrder ed By: [facility] Provider on 10-18-2023 [facility] No Panel Informationon 10-15 BLANK _ [facility] Implant Date 10/21/2020 [facility] PACEMAKER REMOTE CHECKon AV Delay Adaptive Paced Minimum (ms) 180 ms [facility] AV Delay Adaptive Sensed Minimum (ms) 150 ms [facility] AV Delay Adaptive Status DISABLED [facility] Battery Voltage (volts) 3.02 V [facility] Pavan RA Pacing Amplitude (volts) 1.5 V [facility] Pavan RA Pacing Polarity BI [facility] Pavan RA Pacing Pulse Width (ms) 0.4 ms [facility] Pavan RA Sensing Amplitude (mvolts) 0.3 mV [facility] Pavan RA Sensing Blanking Period (ms) 150 ms [facility] Pavan RA Sensing Polarity BI [facility] Pavan RA Sensing Refractory Period (ms) Auto [facility] Pavan RV Pacing Amplitude (volts) 2 V [facility] Pavan RV Pacing Polarity BI [facility] Pavan RV Pacing Pulse Width (ms) 0.4 ms [facility] Pavan RV Sensing Amplitude (mvolts) 0.9 mV [facility] Pavan RV Sensing Blanking Period (ms) 200 ms [facility] Pavan RV Sensing Polarity BI [facility] Hysteresis Rate (bpm) DISABLED [facility] Lead1 Mfg MDT [facility] Lead2 Mfg MDT [facility] Location RV [facility] Location RA [facility] Lower Rate (bpm) 60 {beats}/min [facility] Max Sensor Rate (bmp) 120 {beats}/min [facility] Model [id number] [place] XT DR MRI Cl [facility] Model 3830 SelectSecure MR I SureScan [facility] Model 5076 CapSureFix Novus [facility] PM-Device Mfg MDT [facility] PM-Percent Pacing (A) 7.59 % [facility] PM-Percent Pacing (V) 18.89 % [facility] PM-PMT Intervention ENABLED [facility] PM-PVC Intervention ENABLED [facility] PM-Rate Modulation Acceleration Reaction 30 s [facility] PM-Rate Modulation ADL Rate (bpm) 95 {beats}/min [facility] PM-Rate Modulation Deceleration Exercise [facility] PM-Rate Modulation Atlantic 3 [facility] PM-Rate Modulation Threshold Low [facility] RA Bipolar Impedance ohms 513 ohm [facility] RA Unipolar Impedance ohms 304 ohm [facility] RV Bipolar Impedance ohms 456 ohm [facility] RV Unipolar Impedance 342 ohm [facility] Serial Number [id number] [facility] Serial Number [id number] [facility] Serial Number [id number] [facility] Thresh RA Capture Amplitude (volts) 0.75 V [facility] Thresh RA Capture Duration (ms) 0.4 ms [facility] Thresh RA Sensing Amplitude (mvolts) 0.5 mV [facility] Thresh RV Capture Amplitude (volts) 1 V [facility] Thresh RV Capture Duration (ms) 0.4 ms [facility] Thresh RV Sensing Amplitude (mvolts) 12.5 mV [facility] Tracking Rate (bpm) 120 {beats}/min [facility] INFLUENZA A&B MOLECULAR (POC )on 07-05-2023 Flu A (POCT) Negative Negative [facility] Flu B (POCT) Negative Negative [facility] Procedural Control Valid [facility] XR Foot - right AP and Later al and obliqueon 06-03-2023 IMPRESSION: 1. Nondisplaced fracture of the base of the right fifth metatarsal 2. Right first metatarsophalangeal joint space narrowing and periarticular erosions, which can be seen with gout Apartment Leasing Specialist: PSCB Transcribe Date/Time: Jun 03 2023 4:34P Dictated by : JUDSON JACINTO MD This examination was interpreted and the report reviewed and electronically signed by: JUDSON JACINTO MD on Jun 03 2023 4:36PM [facility] DIVISION OF RADIOLOGY * * [...] soft tissue swelling. DIVISION OF RADIOLOGY Provider, [facility] - 06/03/2023 * * *Final Report* [...] erosions, which can be seen with gout Apartment Leasing Specialist: [facility] Transcribe Date/Time: Jun 03 2023 4:34P Dictated by : JUDSON JACINTO MD This examination was interpreted and the report reviewed and electronically signed by: JUDSON JACINTO MD on Jun 03 2023 4:36PM EST [facility] XR Foot - right AP and Later al and obliqueOrdered By: [facility]cf Provider on 06-03-2023 [facility] XR Foot - right AP and Later al and obliqueon 06-01-2023 Radiology Study observation (narrative) [facility] CT CHEST WO IVCONon 04-30-20 [facility] XR Finger - right AP and Lat eral and obliqueon 04-15-2023 IMPRESSION: No acute osseous abnormality Apartment Leasing Specialist: PSCB Transcribe Date/Time: Apr 15 2023 11:58A Dictated by : UJDSON JACINTO MD This examination was interpreted and [...] No periarticular erosions. DIVISION OF RADIOLOGY Provider, [facility] - 04/15/2023 * * *Final Report* [...] erosions. IMPRESSION IMPRESSION: No acute osseous abnormality Apartment Leasing Specialist: PSCB Transcribe Date/Time: Apr 15 2023 11:58A Dictated by : JUDSON JACINTO MD This examination was interpreted and the report reviewed and electronically signed by: JUDSON JACINTO MD on Apr 15 2023 11:59AM EST [facility] XR Finger - right AP and Lat eral and obliqueOrdered By: Ccf Provider on 04-15-2023 [facility] XR Finger - right AP and Lat eral and obliqueon 04-12-2023 Radiology Study observation (narrative) [facility] No Panel Informationon 03-28 BLANK _ [facility] Implant Date 10/21/2020 [facility] PACEMAKER REMOTE CHECKon AV Delay Adaptive Paced Minimum (ms) 180 ms [facility] AV Delay Adaptive Sensed Minimum (ms) 150 ms [facility] AV Delay Adaptive Status DISABLED [facility] Battery Voltage (volts) 3.02 V [facility] Pavan RA Pacing Amplitude (volts) 1.5 V [facility] Pavan RA Pacing Polarity BI [facility] Pavan RA Pacing Pulse Width (ms) 0.4 ms [facility] Pavan RA Sensing Amplitude (mvolts) 0.3 mV [facility] Pavan RA Sensing Blanking Period (ms) 150 ms [facility] Pavan RA Sensing Polarity BI [facility] Pavan RA Sensing Refractory Period (ms) Auto [facility] Pavan RV Pacing Amplitude (volts) 2 V [facility] Pavan RV Pacing Polarity BI [facility] Pavan RV Pacing Pulse Width (ms) 0.4 ms [facility] Pavan RV Sensing Amplitude (mvolts) 0.9 mV [facility] Pavan RV Sensing Blanking Period (ms) 200 ms [facility] Pavan RV Sensing Polarity BI [facility] Hysteresis Rate (bpm) DISABLED [facility] Lead1 Jose UGARTET [facility] Lead2 Karlg T [facility] Location RV [facility] Location RA [facility] Lower Rate (bpm) 60 {beats}/min [facility] Max Sensor Rate (bmp) 120 {beats}/min [facility] Model [id number] [place] XT DR CAI [facility] Model 3830 SelectSecure MR I SureManish [facility] Model 5076 CapSureFix Novus [facility] PM-Device Jose IRVIN [facility] PM-Percent Pacing (A) 96.66 % [facility] PM-Percent Pacing (V) 1.41 % [facility] PM-PMT Intervention ENABLED [facility] PM-PVC Intervention ENABLED [facility] PM-Rate Modulation Acceleration Reaction 30 s [facility] PM-Rate Modulation ADL Rate (bpm) 95 {beats}/min [facility] PM-Rate Modulation Deceleration Exercise [facility] PM-Rate Modulation Atlantic 3 [facility] PM-Rate Modulation Threshold Low [facility] RA Bipolar Impedance ohms 475 ohm [facility] RA Unipolar Impedance ohms 304 ohm [facility] RV Bipolar Impedance ohms 437 ohm [facility] RV Unipolar Impedance 342 ohm [facility] Serial Number [id number] [facility] Serial Number [id number] [facility] Serial Number [id number] [facility] Thresh RA Capture Amplitude (volts) 0.75 V [facility] Thresh RA Capture Duration (ms) 0.4 ms [facility] Thresh RA Sensing Amplitude (mvolts) 0.75 mV [facility] Thresh RV Capture Amplitude (volts) 1 V [facility] Thresh RV Capture Duration (ms) 0.4 ms [facility] Thresh RV Sensing Amplitude (mvolts) 12.375 mV [facility] Tracking Rate (bpm) 120 {beats}/min [facility] No Panel Informationon 12-29 BLANK _ [facility] Implant Date 10/21/2020 [facility] PACEMAKER REMOTE CHECKon AV Delay Adaptive Paced Minimum (ms) 180 ms [facility] AV Delay Adaptive Sensed Minimum (ms) 150 ms [facility] AV Delay Adaptive Status DISABLED [facility] Battery Voltage (volts) 3.02 V [facility] Pavan RA Pacing Amplitude (volts) 1.5 V [facility] Pavan RA Pacing Polarity BI [facility] Pavan RA Pacing Pulse Width (ms) 0.4 ms [facility] Pavan RA Sensing Amplitude (mvolts) 0.3 mV [facility] Pavan RA Sensing Blanking Period (ms) 150 ms [facility] Pavan RA Sensing Polarity BI [facility] Pavan RA Sensing Refractory Period (ms) Auto [facility] Pavan RV Pacing Amplitude (volts) 2 V [facility] Pavan RV Pacing Polarity BI [facility] Pavan RV Pacing Pulse Width (ms) 0.4 ms [facility] Pavan RV Sensing Amplitude (mvolts) 0.9 mV [facility] Pavan RV Sensing Blanking Period (ms) 200 ms [facility] Pavan RV Sensing Polarity BI [facility] Hysteresis Rate (bpm) DISABLED [facility] Lead1 Mfg MDT [facility] Lead2 Mfg MDT [facility] Location RV [facility] Location RA [facility] Lower Rate (bpm) 60 {beats}/min [facility] Max Sensor Rate (bmp) 120 {beats}/min [facility] Model [id number] [place] XT DR MRI Cl [facility] Model 3830 SelectSecure MR I SureScjuliana [facility] Model 5076 CapSureFix Novus [facility] PM-Device Mfg MDT [facility] PM-Percent Pacing (A) 79.14 % [facility] PM-Percent Pacing (V) 5.48 % [facility] PM-PMT Intervention ENABLED [facility] PM-PVC Intervention ENABLED [facility] PM-Rate Modulation Acceleration Reaction 30 s [facility] PM-Rate Modulation ADL Rate (bpm) 95 {beats}/min [facility] PM-Rate Modulation Deceleration Exercise [facility] PM-Rate Modulation Atlantic 3 [facility] PM-Rate Modulation Threshold Low [facility] RA Bipolar Impedance ohms 437 ohm [facility] RA Unipolar Impedance ohms 304 ohm [facility] RV Bipolar Impedance ohms 437 ohm [facility] RV Unipolar Impedance 342 ohm [facility] Serial Number [id number] [facility] Serial Number [id number] [facility] Serial Number [id number] [facility] Thresh RA Capture Amplitude (volts) 0.625 V [facility] Thresh RA Capture Duration (ms) 0.4 ms [facility] Thresh RA Sensing Amplitude (mvolts) 0.875 mV [facility] Thresh RV Capture Amplitude (volts) 1 V [facility] Thresh RV Capture Duration (ms) 0.4 ms [facility] Thresh RV Sensing Amplitude (mvolts) 10.75 mV [facility] Tracking Rate (bpm) 120 {beats}/min [facility] MRA BRAIN WO/W IVCONon 12-10 MRA BRAIN WO/W IVCON * * *Final Report* * * DATE OF EXAM: Dec 10 2022 1:14PM [facility] 0273 - MRA BRAIN WO/W IVCON / PROCEDURE REASON: multiple diagnoses * * * * Physician Interpretation * * * * EXAMINATION: MRA BRAIN WO/W IVCON CLINICAL HISTORY: Nonruptured acom aneurysm follow-up. TECHNIQUE: Short TR short TE SPGR through the [place] after contrast. Intracranial 3D [id number] MRA with post-processing performed at the modality [...] aneurysm coiling. No additional intracranial aneurysms identified. Apartment Leasing Specialist: PSCB Transcribe Date/Time: Dec 10 2022 1:31P Dictated by : TYE REN MD This examination was interpreted and the report reviewed and electronically signed by: TYE REN MD on Dec 10 2022 1:38PM EST [id number] Normal [facility] KIDNEY/BLADDERon 10-07-19 Radiology Result ACTIONABLE Abnormal [facility] No Panel Informationon 09-27 BLANK _ [facility] Implant Date 10/21/2020 [facility] PACEMAKER REMOTE CHECKon AV Delay Adaptive Paced Minimum (ms) 180 ms [facility] AV Delay Adaptive Sensed Minimum (ms) 150 ms [facility] AV Delay Adaptive Status DISABLED [facility] Battery Voltage (volts) 3.02 V [facility] Pavan RA Pacing Amplitude (volts) 1.5 V [facility] Pavan RA Pacing Polarity BI [facility] Pavan RA Pacing Pulse Width (ms) 0.4 ms [facility] Pavan RA Sensing Amplitude (mvolts) 0.3 mV [facility] Pavan RA Sensing Blanking Period (ms) 150 ms [facility] Pavan RA Sensing Polarity BI [facility] Pavan RA Sensing Refractory Period (ms) Auto [facility] Pavan RV Pacing Amplitude (volts) 2 V [facility] Pavan RV Pacing Polarity BI [facility] Pavan RV Pacing Pulse Width (ms) 0.4 ms [facility] Pavan RV Sensing Amplitude (mvolts) 0.9 mV [facility] Pavan RV Sensing Blanking Period (ms) 200 ms [facility] Pavan RV Sensing Polarity BI [facility] Hysteresis Rate (bpm) DISABLED [facility] Lead1 Mfg MDT [facility] Lead2 Mfg MDT [facility] Location RV [facility] Location RA [facility] Lower Rate (bpm) 60 {beats}/min [facility] Max Sensor Rate (bmp) 120 {beats}/min [facility] Model W1DR01 [place] XT DR MRI Cl [facility] Model 3830 SelectSecure MR I SureScan [facility] Model 5076 CapSureFix Novus [facility] PM-Device Mfg MDT [facility] PM-Percent Pacing (A) 46.27 % [facility] PM-Percent Pacing (V) 11.47 % [facility] PM-PMT Intervention ENABLED [facility] PM-PVC Intervention ENABLED [facility] PM-Rate Modulation Acceleration Reaction 30 s [facility] PM-Rate Modulation ADL Rate (bpm) 95 {beats}/min [facility] PM-Rate Modulation Deceleration Exercise [facility] PM-Rate Modulation Atlantic 3 [facility] PM-Rate Modulation Threshold Low [facility] RA Bipolar Impedance ohms 494 ohm [facility] RA Unipolar Impedance ohms 285 ohm [facility] RV Bipolar Impedance ohms 437 ohm [facility] RV Unipolar Impedance 323 ohm [facility] Serial Number [id number] [facility] Serial Number [id number] [facility] Serial Number [id number] [facility] Thresh RA Capture Amplitude (volts) 0.5 V [facility] Thresh RA Capture Duration (ms) 0.4 ms [facility] Thresh RA Sensing Amplitude (mvolts) 0.5 mV [facility] Thresh RV Capture Amplitude (volts) 1 V [facility] Thresh RV Capture Duration (ms) 0.4 ms [facility] Thresh RV Sensing Amplitude (mvolts) 13.375 mV [facility] Tracking Rate (bpm) 120 {beats}/min [facility] No Panel Informationon 06-30 BLANK _ [facility] Implant Date 10/21/2020 [facility] PACEMAKER REMOTE CHECKon AV Delay Adaptive Paced Minimum (ms) 180 ms [facility] AV Delay Adaptive Sensed Minimum (ms) 150 ms [facility] AV Delay Adaptive Status DISABLED [facility] Battery Voltage (volts) 3.03 V [facility] Pavan RA Pacing Amplitude (volts) 1.5 V [facility] Pavan RA Pacing Polarity BI [facility] Pavan RA Pacing Pulse Width (ms) 0.4 ms [facility] Pavan RA Sensing Amplitude (mvolts) 0.3 mV [facility] Pavan RA Sensing Blanking Period (ms) 150 ms [facility] Pavan RA Sensing Polarity BI [facility] Pavan RA Sensing Refractory Period (ms) Auto [facility] Pavan RV Pacing Amplitude (volts) 2.5 V [facility] Pavan RV Pacing Polarity BI [facility] Pavan RV Pacing Pulse Width (ms) 0.4 ms [facility] Pavan RV Sensing Amplitude (mvolts) 0.9 mV [facility] Pavan RV Sensing Blanking Period (ms) 200 ms [facility] Pavan RV Sensing Polarity BI [facility] Hysteresis Rate (bpm) DISABLED [facility] Lead1 Mfg MDT [facility] Lead2 Mfg MDT [facility] Location RV [facility] Location RA [facility] Lower Rate (bpm) 60 {beats}/min [facility] Max Sensor Rate (bmp) 120 {beats}/min [facility] Model W1DR01 [place] XT DR MRI Cl [facility] Model 3830 SelectSecure MR I SureScan [facility] Model 5076 CapSureFix Novus [facility] PM-Device Mfg MDT [facility] PM-Percent Pacing (A) 53.59 % [facility] PM-Percent Pacing (V) 11.72 % [facility] PM-PMT Intervention ENABLED [facility] PM-PVC Intervention ENABLED [facility] PM-Rate Modulation Acceleration Reaction 30 s [facility] PM-Rate Modulation ADL Rate (bpm) 95 {beats}/min [facility] PM-Rate Modulation Deceleration Exercise [facility] PM-Rate Modulation Atlantic 3 [facility] PM-Rate Modulation Threshold Low [facility] RA Bipolar Impedance ohms 456 ohm [facility] RA Unipolar Impedance ohms 304 ohm [facility] RV Bipolar Impedance ohms 437 ohm [facility] RV Unipolar Impedance 323 ohm [facility] Serial Number [id number] [facility] Serial Number [id number] [facility] Serial Number [id number] [facility] Thresh RA Capture Amplitude (volts) 0.5 V [facility] Thresh RA Capture Duration (ms) 0.4 ms [facility] Thresh RA Sensing Amplitude (mvolts) 0.375 mV [facility] Thresh RV Capture Amplitude (volts) 1.125 V [facility] Thresh RV Capture Duration (ms) 0.4 ms [facility] Thresh RV Sensing Amplitude (mvolts) 9.25 mV [facility] Tracking Rate (bpm) 120 {beats}/min [facility] UA DIP, URINE (POC)on 2021 BILIRUBIN UA (POCT) Negative Negative [facility] CLARITY UA (POCT) Clear [facility] COLOR UA (POCT) Yellow [facility] GLUCOSE UA (POCT) Negative Negative mg/dL [facility] HEMOGLOBIN/BLOOD UA (POCT) Negative Negative [facility] KETONE UA (POCT) Negative Negative mg/dL [facility] LEUKOCYTES UA (POCT) Negative Negative [facility] NITRITE UA (POCT) Negative Negative [facility] PH UA (POCT) 5.5 4.5 - 8.0 [facility] Protein Ql (U) 30 mg/dL Abnormal Negative mg/dL [facility] SPECIFIC GRAVITY UA (POCT) 1.020 1.005 - 1.030 [facility] UROBILINOGEN UA (POCT) 0.2 E.U./dL Cat l E.U./dL [facility] CBC W Auto Differential pane l (Bld)on 04-06-2022 Abs Immature Gran 0.03 k/uL <0.10 k/uL [facility] Basophils (Bld) [#/Vol] 0.08 10*3/uL <0.11 k/uL [facility] Basophils/100 WBC (Bld) 1.1 % [facility] Differential cell count method Nom (Bld) Auto [facility] Eosinophils (Bld) [#/Vol] 0.11 10*3/uL <0.46 k/uL [facility] Eosinophils/100 WBC (Bld) 1.5 % [facility] Erythrocyte distribution width (RBC) [Ratio] 19.9 % High 11.5 - 15.0 % [facility] Hematocrit (Bld) [Volume fraction] 31.3 % Low 36.0 - 46.0 % [facility] Hemoglobin (Bld) [Mass/Vol] 9.2 g/dL Low 11.5 - 15.5 g/dL [facility] Immature Gran % 0.4 % [facility] Lymphocytes (Bld) [#/Vol] 2.05 10*3/uL 1.00 - 4.00 k/uL [facility] Lymphocytes/100 WBC (Bld) 27.9 % [facility] MCH (RBC) [Entitic mass] 24.5 pg Low 26.0 - 34.0 pg [facility] MCHC (RBC) [Mass/Vol] 29.4 g/dL Low 30.5 - 36.0 g/dL [facility] MCV (RBC) [Entitic vol] 83.5 fL 80.0 - 100.0 fL [facility] Monocytes (Bld) [#/Vol] 0.93 10*3/uL High <0.87 k/uL [facility] Monocytes/100 WBC (Bld) 12.7 % [facility] Neutrophils (Bld) [#/Vol] 4.14 10*3/uL 1.45 - 7.50 k/uL [facility] Neutrophils/100 WBC (Bld) 56.4 % [facility] Nucleated RBC (Bld) [#/Vol] <0.01 k/uL [facility] Nucleated RBC/100 WBC (Bld) [Ratio] 0.0 /100 WBC [facility] Platelet mean volume (Bld) [Entitic vol] 9.8 fL 9.0 - 12.7 fL [facility] Platelets (Bld) [#/Vol] 266 10*3/uL 150 - 400 k/uL [facility] RBC (Bld) [#/Vol] 3.75 10*6/uL Low 3.90 - 5.2 0 m/uL [facility] WBC (Bld) [#/Vol] 7.34 10*3/uL 3.70 - 11. 00 k/uL [facility] FERRITIN BLDon 04-06-2022 Ferritin [Mass/Vol] 27.1 ng/mL 14.7 - 2 05.1 ng/mL [facility] Iron and Iron binding capaci ty panelon 04-06-2022 Iron [Mass/Vol] 26 ug/dL Low 41 - 186 ug/dL [facility] Iron binding capacity [Mass/Vol] 454 ug/dL High 232 - 386 ug/dL [facility] Iron/TIBC [Molar ratio] 5.7 % Low 15.0 - 57.0 % [facility] No Panel Informationon 03-28 BLANK _ [facility] Implant Date 10/21/2020 [facility] PACEMAKER REMOTE CHECKon AV Delay Adaptive Paced Minimum (ms) 180 ms [facility] AV Delay Adaptive Sensed Minimum (ms) 150 ms [facility] AV Delay Adaptive Status DISABLED [facility] Battery Voltage (volts) 3.03 V [facility] Pavan RA Pacing Amplitude (volts) 1.5 V [facility] Pavan RA Pacing Polarity BI [facility] Pavan RA Pacing Pulse Width (ms) 0.4 ms [facility] Pavan RA Sensing Amplitude (mvolts) 0.3 mV [facility] Pavan RA Sensing Blanking Period (ms) 150 ms [facility] Pavan RA Sensing Polarity BI [facility] Pavan RA Sensing Refractory Period (ms) Auto [facility] Pavan RV Pacing Amplitude (volts) 2 V [facility] Pavan RV Pacing Polarity BI [facility] Pavan RV Pacing Pulse Width (ms) 0.4 ms [facility] Pavan RV Sensing Amplitude (mvolts) 0.9 mV [facility] Pavan RV Sensing Blanking Period (ms) 200 ms [facility] Pavan RV Sensing Polarity BI [facility] Hysteresis Rate (bpm) DISABLED [facility] Lead1 Mfg MDT [facility] Lead2 Mfg MDT [facility] Location RV [facility] Location RA [facility] Lower Rate (bpm) 60 {beats}/min [facility] Max Sensor Rate (bmp) 120 {beats}/min [facility] Model W1DR01 [place] XT DR CAI [facility] Model 3830 SelectSecure MR I Jourdan [facility] Model 5076 CapSureFix Novus [facility] PM-Device Mfg MDT [facility] PM-Percent Pacing (A) 13.82 % [facility] PM-Percent Pacing (V) 9.69 % [facility] PM-PMT Intervention ENABLED [facility] PM-PVC Intervention ENABLED [facility] PM-Rate Modulation Acceleration Reaction 30 s [facility] PM-Rate Modulation ADL Rate (bpm) 95 {beats}/min [facility] PM-Rate Modulation Deceleration Exercise [facility] PM-Rate Modulation Atlantic 3 [facility] PM-Rate Modulation Threshold Low [facility] RA Bipolar Impedance ohms 437 ohm [facility] RA Unipolar Impedance ohms 285 ohm [facility] RV Bipolar Impedance ohms 418 ohm [facility] RV Unipolar Impedance 323 ohm [facility] Serial Number [id number] [facility] Serial Number [id number] [facility] Serial Number [id number] [facility] Thresh RA Capture Amplitude (volts) 0.75 V [facility] Thresh RA Capture Duration (ms) 0.4 ms [facility] Thresh RA Sensing Amplitude (mvolts) 0.25 mV [facility] Thresh RV Capture Amplitude (volts) 1 V [facility] Thresh RV Capture Duration (ms) 0.4 ms [facility] Thresh RV Sensing Amplitude (mvolts) 13.375 mV [facility] Tracking Rate (bpm) 120 {beats}/min [facility] ECHO TRANSESOPHAGEALon 03-03 [facility] No Panel Informationon 03-03 BLANK _ [facility] Implant Date 10/21/2020 [facility] PACEMAKER CLINIC CHECKon AV Delay Adaptive Paced Minimum (ms) 180 ms [facility] AV Delay Adaptive Sensed Minimum (ms) 150 ms [facility] AV Delay Adaptive Status DISABLED [facility] Battery Voltage (volts) 3.03 V [facility] Pavan RA Pacing Amplitude (volts) 1.5 V [facility] Pavan RA Pacing Polarity BI [facility] Pavan RA Pacing Pulse Width (ms) 0.4 ms [facility] Pavan RA Sensing Amplitude (mvolts) 0.3 mV [facility] Pavan RA Sensing Blanking Period (ms) 150 ms [facility] Pavan RA Sensing Polarity BI [facility] Pavan RA Sensing Refractory Period (ms) Auto [facility] Pavan RV Pacing Amplitude (volts) 2 V [facility] Pavan RV Pacing Polarity BI [facility] Pavan RV Pacing Pulse Width (ms) 0.4 ms [facility] Pavan RV Sensing Amplitude (mvolts) 0.9 mV [facility] Pavan RV Sensing Blanking Period (ms) 200 ms [facility] Pavan RV Sensing Polarity BI [facility] Hysteresis Rate (bpm) DISABLED [facility] Lead1 Mfg MDT [facility] Lead2 Mfg MDT [facility] Location RV [facility] Location RA [facility] Lower Rate (bpm) 60 {beats}/min [facility] Max Sensor Rate (bmp) 120 {beats}/min [facility] Model [id number] [place] XT DR TRELL [facility] Model 3830 SelectSecure MR I SureScan [facility] Model 5076 CapSureFix Novus [facility] Pacemaker Dependent? NO [facility] PM-Device Mfg MDT [facility] PM-Percent Pacing (A) 3.4 % [facility] PM-Percent Pacing (V) 14.6 % [facility] PM-PMT Intervention ENABLED [facility] PM-PVC Intervention ENABLED [facility] PM-Rate Modulation Acceleration Reaction 30 s [facility] PM-Rate Modulation ADL Rate (bpm) 95 {beats}/min [facility] PM-Rate Modulation Deceleration Exercise [facility] PM-Rate Modulation Atlantic 3 [facility] PM-Rate Modulation Threshold Low [facility] RA Bipolar Impedance ohms 456 ohm [facility] RA Unipolar Impedance ohms 285 ohm [facility] Rhythm Atrial Fibrillation [facility] RV Bipolar Impedance ohms 437 ohm [facility] RV Unipolar Impedance 342 ohm [facility] Serial Number [id number] [facility] Serial Number [id number] [facility] Serial Number [id number] [facility] Thresh RA Capture Amplitude (volts) 0.75 V [facility] Thresh RA Capture Duration (ms) 0.4 ms [facility] Thresh RA Sensing Amplitude (mvolts) 0.375 mV [facility] Thresh RV Capture Amplitude (volts) 0.875 V [facility] Thresh RV Capture Duration (ms) 0.4 ms [facility] Thresh RV Sensing Amplitude (mvolts) 12.75 mV [facility] Tracking Rate (bpm) 120 {beats}/min [facility] HEMOGLOBIN (HGB)on Hemoglobin (Bld) [Mass/Vol] 8.1 g/dL Low 11.5 - 15.5 g/dL [facility] Hematocrit Auto (Bld) [Volum e fraction]on 02-20-2022 Hematocrit (Bld) [Volume fraction] 26.4 % Low 36.0 - 46.0 % [facility] No Panel Informationon 01-09 BLANK _ [facility] Implant Date 10/21/2020 [facility] CHECKon AV Delay Adaptive Paced Minimum (ms) 180 ms [facility] AV Delay Adaptive Sensed Minimum (ms) 150 ms [facility] AV Delay Adaptive Status DISABLED [facility] Battery Voltage (volts) 3.04 V [facility] Pavan RA Pacing Amplitude (volts) 1.5 V [facility] Pavan RA Pacing Polarity BI [facility] Pavan RA Pacing Pulse Width (ms) 0.4 ms [facility] Pavan RA Sensing Amplitude (mvolts) 0.3 mV [facility] Pavan RA Sensing Blanking Period (ms) 150 ms [facility] Pavan RA Sensing Polarity BI [facility] Pavan RA Sensing Refractory Period (ms) Auto [facility] Pavan RV Pacing Amplitude (volts) 2 V [facility] Pavan RV Pacing Polarity BI [facility] Pavan RV Pacing Pulse Width (ms) 0.4 ms [facility] Pavan RV Sensing Amplitude (mvolts) 0.9 mV [facility] Pavan RV Sensing Blanking Period (ms) 200 ms [facility] Pavan RV Sensing Polarity BI [facility] Hysteresis Rate (bpm) DISABLED [facility] Lead1 Mfg MDT [facility] Lead2 Mfg MDT [facility] Location RV [facility] Location RA [facility] Lower Rate (bpm) 60 {beats}/min [facility] Max Sensor Rate (bmp) 120 {beats}/min [facility] Model [id number] [place] XT DR MRI [facility] Model 3830 SelectSecure MR I SureScan [facility] Model 5076 CapSureFix Novus [facility] Pacemaker Dependent? NO [facility] PM-Device Mfg MDT [facility] PM-Percent Pacing (A) 32.01 % [facility] PM-Percent Pacing (V) 13.19 % [facility] PM-PMT Intervention ENABLED [facility] PM-PVC Intervention ENABLED [facility] PM-Rate Modulation Acceleration Reaction 30 s [facility] PM-Rate Modulation ADL Rate (bpm) 95 {beats}/min [facility] PM-Rate Modulation Deceleration Exercise [facility] PM-Rate Modulation Atlantic 3 [facility] PM-Rate Modulation Threshold Low [facility] RA Bipolar Impedance ohms 456 ohm [facility] RA Unipolar Impedance ohms 285 ohm [facility] Rhythm Atrial Fibrillation [facility] RV Bipolar Impedance ohms 437 ohm [facility] RV Unipolar Impedance 342 ohm [facility] Serial Number [id number] [facility] Serial Number [id number] [facility] Serial Number [id number] [facility] Thresh RA Capture Amplitude (volts) 0.75 V [facility] Thresh RA Capture Duration (ms) 0.4 ms [facility] Thresh RA Sensing Amplitude (mvolts) 0.375 mV [facility] Thresh RV Capture Amplitude (volts) 1 V [facility] Thresh RV Capture Duration (ms) 0.4 ms [facility] Thresh RV Sensing Amplitude (mvolts) 13.6 mV [facility] Tracking Rate (bpm) 120 {beats}/min [facility] EGD DIAGNOSTICon 01-02-2022 [facility] CBC panel Auto (Bld)on 12-26 Erythrocyte distribution width (RBC) [Ratio] 16.8 % High 11.5 - 15.0 % [facility] Hematocrit (Bld) [Volume fraction] 28.2 % Low 36.0 - 46.0 % [facility] Hemoglobin (Bld) [Mass/Vol] 8.1 g/dL Low 11.5 - 15.5 g/dL [facility] MCH (RBC) [Entitic mass] 24.5 pg Low 26.0 - 34.0 pg [facility] MCHC (RBC) [Mass/Vol] 28.7 g/dL Low 30.5 - 36.0 g/dL [facility] MCV (RBC) [Entitic vol] 85.5 fL 80.0 - 100.0 fL [facility] Nucleated RBC (Bld) [#/Vol] 10*3/uL <0.01 k/uL [facility] Platelet mean volume (Bld) [Entitic vol] 10.3 fL 9.0 - 12.7 fL [facility] Platelets (Bld) [#/Vol] 248 10*3/uL 150 - 400 k/uL [facility] RBC (Bld) [#/Vol] 3.30 10*6/uL Low 3.90 - 5.2 0 m/uL [facility] WBC (Bld) [#/Vol] 10.54 10*3/uL 3.70 - 11 .00 k/uL [facility] CBC panel Auto (Bld)on 12-15 Erythrocyte distribution width (RBC) [Ratio] 15.7 % High 11.5 - 15.0 % [facility] Hematocrit (Bld) [Volume fraction] 31.0 % Low 36.0 - 46.0 % [facility] Hemoglobin (Bld) [Mass/Vol] 9.3 g/dL Low 11.5 - 15.5 g/dL [facility] MCH (RBC) [Entitic mass] 24.4 pg Low 26.0 - 34.0 pg [facility] MCHC (RBC) [Mass/Vol] 30.0 g/dL Low 30.5 - 36.0 g/dL [facility] MCV (RBC) [Entitic vol] 81.4 fL 80.0 - 100.0 fL [facility] Nucleated RBC (Bld) [#/Vol] 10*3/uL <0.01 k/uL [facility] Platelet mean volume (Bld) [Entitic vol] 10.0 fL 9.0 - 12.7 fL [facility] Platelets (Bld) [#/Vol] 273 10*3/uL 150 - 400 k/uL [facility] RBC (Bld) [#/Vol] 3.81 10*6/uL Low 3.90 - 5.2 0 m/uL [facility] WBC (Bld) [#/Vol] 9.78 10*3/uL 3.70 - 11. 00 k/uL [facility] HbA1c (Bld)on 12-15-2021 Average glucose Estimated from glycated hemoglobin (Bld) [Mass/Vol] 157 mg/dL [facility] HbA1c (Bld) [Mass fraction] 7.1 % High 4.3 - 5.6 % [facility] Lipid 1996 panelon 2 Cholesterol [Mass/Vol] 121 mg/dL <200 mg/dL [facility] Cholesterol in HDL [Mass/Vol] 43 mg/dL >39 mg/dL [facility] Cholesterol in LDL [Mass/Vol] 59 mg/dL <100 mg/dL [facility] Cholesterol in LDL/Cholesterol in HDL [Mass ratio] 1.37 {ratio} <2.54 [facility] Cholesterol in VLDL [Mass/Vol] 19 mg/dL <30 mg/dL [facility] Cholesterol non HDL [Mass/Vol] 78 mg/dL <130 mg/dL [facility] Cholesterol.total/Gin sterol in HDL [Mass ratio] 2.81 {ratio} <5.10 [facility] Fasting Time 12 hrs [facility] Triglyceride [Mass/Vol] 93 mg/dL <150 mg/dL [facility] XR HIP GENERAL 3V PELV/AP/LA T LEFTon 12-15-2021 [facility] XR Pelvis and Hip - left AP and Lateral frogon 12-15-2021 IMPRESSION: NEGATIVE HIP. Apartment Leasing Specialist: JAMES Transcribe Date/Time: Dec 15 2021 12:36P Dictated [...] relevant examinations available for comparison within the [facility]. RESULT: Supine radiograph of the pelvis as well as AP and frogleg views of the left hip demonstrate the bony pelvic ring intact. The hips are bilaterally symmetric without fracture or dislocation. No acute bony process is noted. The soft tissues demonstrate aortoiliac calcification [id number] N OF RADIOLOGY Provider, [facility] - 12/15/2021 * * *Final Report* [...] relevant examinations available for comparison within the [facility]. RESULT: Supine radiograph of the pelvis as well as AP and frogleg views of the left hip demonstrate the bony pelvic ring intact. The hips are bilaterally symmetric without fracture or dislocation. No acute bony process is noted. The soft tissues demonstrate aortoiliac calcification IMPRESSION IMPRESSION: NEGATIVE HIP. Apartment Leasing Specialist: PSCB Transcribe Date/Time: Dec 15 2021 12:36P Dictated by : JUAN MOSCOSO MD This examination was interpreted and the report reviewed and electronically signed by: JUAN MOSCOSO MD on Dec 15 2021 12:38PM [facility] Radiology Study observation (narrative) [facility] XR Pelvis and Hip - left AP and Lateral frogOrdered By: Ccf Provider on 12-15-2021 [facility] No Panel Informationon 12-13 BLANK _ [facility] Implant Date 10/21/2020 [facility] PACEMAKER REMOTE CHECKon AV Delay Adaptive Paced Minimum (ms) 180 ms [facility] AV Delay Adaptive Sensed Minimum (ms) 150 ms [facility] AV Delay Adaptive Status DISABLED [facility] Battery Voltage (volts) 3.04 V [facility] Pavan RA Pacing Amplitude (volts) 1.5 V [facility] Pavan RA Pacing Polarity BI [facility] Pavan RA Pacing Pulse Width (ms) 0.4 ms [facility] Pavan RA Sensing Amplitude (mvolts) 0.3 mV [facility] Pavan RA Sensing Blanking Period (ms) 150 ms [facility] Pavan RA Sensing Polarity BI [facility] Pavan RA Sensing Refractory Period (ms) Auto [facility] Pavan RV Pacing Amplitude (volts) 2 V [facility] Pavan RV Pacing Polarity BI [facility] Pavan RV Pacing Pulse Width (ms) 0.4 ms [facility] Pavan RV Sensing Amplitude (mvolts) 0.9 mV [facility] Pavan RV Sensing Blanking Period (ms) 200 ms [facility] Pavan RV Sensing Polarity BI [facility] Hysteresis Rate (bpm) DISABLED [facility] Lead1 Jose UGARTET [facility] Lead2 Jose UGARTET [facility] Location RV [facility] Location RA [facility] Lower Rate (bpm) 60 {beats}/min [facility] Max Sensor Rate (bmp) 120 {beats}/min [facility] Model W1DR01 [place] XT DR MRI [facility] Model 3830 SelectSecure MR I SureManish [facility] Model 5076 CapSureFix Novus [facility] PM-Device Mfg MDT [facility] PM-Percent Pacing (A) 0.2 % [facility] PM-Percent Pacing (V) 19.48 % [facility] PM-PMT Intervention ENABLED [facility] PM-PVC Intervention ENABLED [facility] PM-Rate Modulation Acceleration Reaction 30 s [facility] PM-Rate Modulation ADL Rate (bpm) 95 {beats}/min [facility] PM-Rate Modulation Deceleration Exercise [facility] PM-Rate Modulation Atlantic 3 [facility] PM-Rate Modulation Threshold Low [facility] RA Bipolar Impedance ohms 475 ohm [facility] RA Unipolar Impedance ohms 285 ohm [facility] RV Bipolar Impedance ohms 418 ohm [facility] RV Unipolar Impedance 323 ohm [facility] Serial Number [id number] [facility] Serial Number [id number] [facility] Serial Number [id number] [facility] Thresh RA Capture Amplitude (volts) 0.75 V [facility] Thresh RA Capture Duration (ms) 0.4 ms [facility] Thresh RA Sensing Amplitude (mvolts) 0.5 mV [facility] Thresh RV Capture Amplitude (volts) 0.875 V [facility] Thresh RV Capture Duration (ms) 0.4 ms [facility] Thresh RV Sensing Amplitude (mvolts) 12.625 mV [facility] Tracking Rate (bpm) 120 {beats}/min [facility] No Panel Informationon 09-26 BLANK _ [facility] Implant Date 10/21/2020 [facility] PACEMAKER REMOTE CHECKon AV Delay Adaptive Paced Minimum (ms) 180 ms [facility] AV Delay Adaptive Sensed Minimum (ms) 150 ms [facility] AV Delay Adaptive Status DISABLED [facility] Battery Voltage (volts) 3.06 V [facility] Pavan RA Pacing Amplitude (volts) 1.5 V [facility] Pavan RA Pacing Polarity BI [facility] Pavan RA Pacing Pulse Width (ms) 0.4 ms [facility] Pavan RA Sensing Amplitude (mvolts) 0.3 mV [facility] Pavan RA Sensing Blanking Period (ms) 150 ms [facility] Pavan RA Sensing Polarity BI [facility] Pavan RA Sensing Refractory Period (ms) Auto [facility] Pavan RV Pacing Amplitude (volts) 2 V [facility] Pavan RV Pacing Polarity BI [facility] Pavan RV Pacing Pulse Width (ms) 0.4 ms [facility] Pavan RV Sensing Amplitude (mvolts) 0.9 mV [facility] Pavan RV Sensing Blanking Period (ms) 200 ms [facility] Pavan RV Sensing Polarity BI [facility] Hysteresis Rate (bpm) DISABLED [facility] Lead1 Mfg MDT [facility] Lead2 Mfg MDT [facility] Location RV [facility] Location RA [facility] Lower Rate (bpm) 60 {beats}/min [facility] Max Sensor Rate (bmp) 120 {beats}/min [facility] Model [id number] [place] XT DR MRI [facility] Model 3830 SelectSecure MR I SureScan [facility] Model 5076 CapSureFix Novus [facility] PM-Device Mfg MDT [facility] PM-Percent Pacing (A) 0.09 % [facility] PM-Percent Pacing (V) 23.44 % [facility] PM-PMT Intervention ENABLED [facility] PM-PVC Intervention ENABLED [facility] PM-Rate Modulation Acceleration Reaction 30 s [facility] PM-Rate Modulation ADL Rate (bpm) 95 {beats}/min [facility] PM-Rate Modulation Deceleration Exercise [facility] PM-Rate Modulation Atlantic 3 [facility] PM-Rate Modulation Threshold Low [facility] RA Bipolar Impedance ohms 532 ohm [facility] RA Unipolar Impedance ohms 304 ohm [facility] RV Bipolar Impedance ohms 418 ohm [facility] RV Unipolar Impedance 342 ohm [facility] Serial Number [id number] [facility] Serial Number [id number] [facility] Serial Number [id number] [facility] Thresh RA Capture Amplitude (volts) 0.75 V [facility] Thresh RA Capture Duration (ms) 0.4 ms [facility] Thresh RA Sensing Amplitude (mvolts) 0.625 mV [facility] Thresh RV Capture Amplitude (volts) 0.875 V [facility] Thresh RV Capture Duration (ms) 0.4 ms [facility] Thresh RV Sensing Amplitude (mvolts) 12 mV [facility] Tracking Rate (bpm) 120 {beats}/min [facility] PROGRESSon 03-08-2019 PROGRESS HNO ID: [id number] Author: Sheree Logan (Rt) Manolo Elaine Service: Radiology Author Type: Silk Presser Type: Progress Notes Filed: 03/08/2019 2:55 PM [...] RT Echo March 08, 2019 2:55 PM [facility] XR CHEST 2V FRONTAL/LATon XR [...] mm nodule right lung base. 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 However, the mobile MRI scanner was not capable of performing the needed MR angiographic sequences. All charges related to the examination was canceled. IMPRESSION: Nondiagnostic MRA study as noted with all charges canceled. The study is to be rescheduled at [facility] main campus. Normal [facility] Vital Signs Date Time Vital Sign Value Performing Clinician Jabari rogers 05-10-2025 11:34-0500 Body temperature 97.4 [degF] Deysi Haagen CHEMICAL RESEARCH TECHNICIAN-C Work Phone: 8(134)811-042199 [place] [address] 05-10-2025 11:34-0500 Diastolic blood pressure 97 mm[Hg] Deysi Haagen CHEMICAL RESEARCH TECHNICIAN-C Work Phone: 1(942)763-000299 [place] [address] 05-10-2025 11:34-0500 Heart rate 84 /min Deysi Haagen CHEMICAL RESEARCH TECHNICIAN-C Work Phone: 9(655)571-847399 [place] [address] 05-10-2025 11:34-0500 Respiratory rate 18 /min Deysi Haagen CHEMICAL RESEARCH TECHNICIAN-C Work Phone: 9(315)360-428199 [place] [address] 05-10-2025 11:34-0500 Systolic blood pressure 149 mm[Hg] Deysi Haagen CHEMICAL RESEARCH TECHNICIAN-C Work Phone: 8(682)230-457099 [place] [address] 05-07-2025 07:36-0500 Body mass index (BMI) [Ratio] 24 kg/m2 Deysi Haagen CHEMICAL RESEARCH TECHNICIAN-C Work Phone: 8(512)517-456299 [place] [address] 05-07-2025 07:36-0500 Body weight 61.68 kg Deysi Haagen CHEMICAL RESEARCH TECHNICIAN-C Work Phone: 6(003)176-145799 [place] [address] 05-07-2025 07:36-0500 Diastolic blood pressure 78 mm[Hg] Deysi Haagen CHEMICAL RESEARCH TECHNICIAN-C Work Phone: 2(488)672-897399 [place] [address] 05-07-2025 07:36-0500 Heart rate 86 /min Deysi Haagen CHEMICAL RESEARCH TECHNICIAN-C Work Phone: 8(884)575-400599 [place] [address] 05-07-2025 07:36-0500 Respiratory rate 18 /min Deysi Haagen CHEMICAL RESEARCH TECHNICIAN-C Work Phone: 0(346)044-080299 [place] [address] 05-07-2025 07:36-0500 SaO2% (BldA) [Mass fraction] 98 % Deysi Collazo CHEMICAL RESEARCH TECHNICIAN-C Work Phone: 7(528)493-009099 [place] [address] 05-07-2025 07:36-0500 Systolic blood pressure 137 mm[Hg] Deysi Haagen CHEMICAL RESEARCH TECHNICIAN-C Work Phone: 9(709)136-398499 [place] [address] 05-03-2025 11:15-0400 Body temperature 98.1 [degF] Deysi Haagen CHEMICAL RESEARCH TECHNICIAN-C Work Phone: 3(839)572-600999 [place] [address] 05-03-2025 11:15-0400 Diastolic blood pressure 81 mm[Hg] Deysi Haagen CHEMICAL RESEARCH TECHNICIAN-C Work Phone: 1(428)938-472199 [place] [address] 05-03-2025 11:15-0400 Heart rate 98 /min Deysi Haagen CHEMICAL RESEARCH TECHNICIAN-C Work Phone: 5(324)582-615899 [place] [address] 05-03-2025 11:15-0400 Respiratory rate 17 /min Deysi Hadon CHEMICAL RESEARCH TECHNICIAN-C Work Phone: 1(560)914-447299 [place] [address] 05-03-2025 11:15-0400 Systolic blood pressure 148 mm[Hg] Deysi Copeagen CHEMICAL RESEARCH TECHNICIAN-C Work Phone: 0(437)523-944899 [place] [address] 04-24-2025 15:30-0400 Body height 160.02 cm Deysi Haagen CHEMICAL RESEARCH TECHNICIAN-C Work Phone: 9(340)430-399599 [place] [address] 04-24-2025 15:30-0400 Body mass index (BMI) [Ratio] 24.3 kg/m2 Deysi Haagen CHEMICAL RESEARCH TECHNICIAN-C Work Phone: 4(862)890-878399 [place] [address] 04-24-2025 15:30-0400 Body temperature 97.5 [degF] Deysi Haagen CHEMICAL RESEARCH TECHNICIAN-C Work Phone: 1(594)949-027599 [place] [address] 04-24-2025 15:30-0400 Body weight 62.36 kg Deysi Hadon CHEMICAL RESEARCH TECHNICIAN-C Work Phone: 3(888)776-083599 [place] [address] 04-24-2025 15:30-0400 Diastolic blood pressure 73 mm[Hg] Deysi Copeagen CHEMICAL RESEARCH TECHNICIAN-C Work Phone: 6(979)649-224049 [place] [address] 04-24-2025 15:30-0400 Heart rate 83 /min Deysi Haagen CHEMICAL RESEARCH TECHNICIAN-C Work Phone: 7(595)222-150199 [place] [address] 04-24-2025 15:30-0400 Respiratory rate 16 /min Deysi Haagen CHEMICAL RESEARCH TECHNICIAN-C Work Phone: 4(623)758-742299 [place] [address] 04-24-2025 15:30-0400 SaO2% (BldA) [Mass fraction] 95 % Deysi Haagen CHEMICAL RESEARCH TECHNICIAN-C Work Phone: 7(750)280-331899 [place] [address] 04-24-2025 15:30-0400 Systolic blood pressure 152 mm[Hg] Deysi Haagen CHEMICAL RESEARCH TECHNICIAN-C Work Phone: 9(707)383-041799 [place] [address] 03-29-2025 11:05-0400 Body temperature 98.2 [degF] Deysi Haagen CHEMICAL RESEARCH TECHNICIAN-C Work Phone: 3(152)747-060099 [place] [address] 03-29-2025 11:05-0400 Diastolic blood pressure 67 mm[Hg] Deysi Haagen CHEMICAL RESEARCH TECHNICIAN-C Work Phone: 0(072)727-428899 [place] [address] 03-29-2025 11:05-0400 Heart rate 89 /min Deysi Haagen CHEMICAL RESEARCH TECHNICIAN-C Work Phone: 5(332)661-645599 [place] [address] 03-29-2025 11:05-0400 Respiratory rate 16 /min Deysi Haagen CHEMICAL RESEARCH TECHNICIAN-C Work Phone: 2(484)814-920499 [place] [address] 03-29-2025 11:05-0400 SaO2% (BldA) [Mass fraction] 100 % Deysi Haagen CHEMICAL RESEARCH TECHNICIAN-C Work Phone: 6(496)561-178399 [place] [address] 03-29-2025 11:05-0400 Systolic blood pressure 145 mm[Hg] Deysi Haagen CHEMICAL RESEARCH TECHNICIAN-C Work Phone: 1(891)258-059899 [place] [address] 03-27-2025 16:35-0400 Body temperature 96.9 [degF] Deysi Haagen CHEMICAL RESEARCH TECHNICIAN-C Work Phone: 4(623)167-024899 [place] [address] 03-27-2025 16:35-0400 Diastolic blood pressure 48 mm[Hg] Deysi Haagen CHEMICAL RESEARCH TECHNICIAN-C Work Phone: 2(223)459-636999 [place] [address] 03-27-2025 16:35-0400 Heart rate 74 /min Deysi Collazo CHEMICAL RESEARCH TECHNICIAN-C Work Phone: 5(697)734-533099 [place] [address] 03-27-2025 16:35-0400 Respiratory rate 16 /min Deysi Hadon CHEMICAL RESEARCH TECHNICIAN-C Work Phone: 1(997)143-049399 [place] [address] 03-27-2025 16:35-0400 SaO2% (BldA) [Mass fraction] 100 % Deysi Collazo CHEMICAL RESEARCH TECHNICIAN-C Work Phone: 1(164)689-723899 [place] [address] 03-27-2025 16:35-0400 Systolic blood pressure 144 mm[Hg] Deysi Collazo CHEMICAL RESEARCH TECHNICIAN-C Work Phone: 8(484)336-940099 [place] [address] 03-27-2025 14:21-0400 Body height 160.02 cm Deysi Collazo CHEMICAL RESEARCH TECHNICIAN-C Work Phone: 7(228)860-515899 [place] [address] 03-27-2025 14:21-0400 Body mass index (BMI) [Ratio] 23.3 kg/m2 Deysi Hadon CHEMICAL RESEARCH TECHNICIAN-C Work Phone: 8(668)989-622299 [place] [address] 03-27-2025 14:21-0400 Body weight 59.87 kg Deysi Hadon CHEMICAL RESEARCH TECHNICIAN-C Work Phone: 3(091)168-974999 [place] [address] 03-22-2025 03:56-0400 Body temperature 98 [degF] Deysi Collazo CHEMICAL RESEARCH TECHNICIAN-C Work Phone: 9(207)856-664699 [place] [address] 03-22-2025 03:56-0400 Diastolic blood pressure 65 mm[Hg] Deysi Collazo CHEMICAL RESEARCH TECHNICIAN-C Work Phone: 4(217)455-527599 [place] [address] 03-22-2025 03:56-0400 Heart rate 81 /min Deysi Collazo CHEMICAL RESEARCH TECHNICIAN-C Work Phone: 6(400)198-958499 [place] [address] 03-22-2025 03:56-0400 Respiratory rate 18 /min Deysi Collazo CHEMICAL RESEARCH TECHNICIAN-C Work Phone: 3(815)249-827499 [place] [address] 03-22-2025 03:56-0400 SaO2% (BldA) [Mass fraction] 99 % Deysi Haagen CHEMICAL RESEARCH TECHNICIAN-C Work Phone: 2(599)277-745799 [place] [address] 03-22-2025 03:56-0400 Systolic blood pressure 161 mm[Hg] Deysi Haagen CHEMICAL RESEARCH TECHNICIAN-C Work Phone: 4(994)161-683699 [place] [address] 03-22-2025 03:36-0400 Body height 160.02 cm Deysi Haagen CHEMICAL RESEARCH TECHNICIAN-C Work Phone: 7(594)924-636399 [place] [address] 03-22-2025 03:36-0400 Body mass index (BMI) [Ratio] 24.9 kg/m2 Deysi Haagen CHEMICAL RESEARCH TECHNICIAN-C Work Phone: 7(505)606-435599 [place] [address] 03-22-2025 03:36-0400 Body weight 63.8 kg Deysi Haagen CHEMICAL RESEARCH TECHNICIAN-C Work Phone: 4(449)587-802599 [place] [address] 03-20-2025 12:20-0400 Body temperature 97.2 [degF] Deysi Haagen CHEMICAL RESEARCH TECHNICIAN-C Work Phone: 8(942)704-910699 [place] [address] 03-20-2025 12:20-0400 Diastolic blood pressure 56 mm[Hg] Deysi Collazo CHEMICAL RESEARCH TECHNICIAN-C Work Phone: 5(202)668-965299 [place] [address] 03-20-2025 12:20-0400 Heart rate 82 /min Deysi Haagen CHEMICAL RESEARCH TECHNICIAN-C Work Phone: 2(340)496-905799 [place] [address] 03-20-2025 12:20-0400 Respiratory rate 16 /min Deysi Haagen CHEMICAL RESEARCH TECHNICIAN-C Work Phone: 7(767)269-216099 [place] [address] 03-20-2025 12:20-0400 SaO2% (BldA) [Mass fraction] 100 % Deysi Collazo CHEMICAL RESEARCH TECHNICIAN-C Work Phone: 4(788)953-401599 [place] [address] 03-20-2025 12:20-0400 Systolic blood pressure 125 mm[Hg] Deysi Haagen CHEMICAL RESEARCH TECHNICIAN-C Work Phone: 0(125)467-375499 [place] [address] 03-20-2025 09:24-0400 Body mass index (BMI) [Ratio] 22.8 kg/m2 Deysi Haagen CHEMICAL RESEARCH TECHNICIAN-C Work Phone: 5(215)566-601499 [place] [address] 03-20-2025 09:24-0400 Body weight 58.51 kg Deysi Haagen CHEMICAL RESEARCH TECHNICIAN-C Work Phone: 7(473)616-416449 [place] [address] 03-15-2025 11:36-0400 Body temperature 96.4 [degF] Deysi Haagen CHEMICAL RESEARCH TECHNICIAN-C Work Phone: [facility] 03-15-2025 11:36-0400 Diastolic blood pressure 57 mm[Hg] Deysi Haagen CHEMICAL RESEARCH TECHNICIAN-C Work Phone: 6(657)453-007599 [place] [address] 03-15-2025 11:36-0400 Heart rate 87 /min Deysi Haagen CHEMICAL RESEARCH TECHNICIAN-C Work Phone: 3(419)048-721799 [place] [address] 03-15-2025 11:36-0400 Respiratory rate 14 /min Deysi Haagen CHEMICAL RESEARCH TECHNICIAN-C Work Phone: 9(789)294-568599 [place] [address] 03-15-2025 11:36-0400 Systolic blood pressure 133 mm[Hg] Deysi Haagen CHEMICAL RESEARCH TECHNICIAN-C Work Phone: 0(210)884-646099 [place] [address] 03-13-2025 14:06-0400 Body height 160.02 cm Deysi Haagen CHEMICAL RESEARCH TECHNICIAN-C Work Phone: 8(300)546-552199 [place] [address] 03-13-2025 14:06-0400 Body mass index (BMI) [Ratio] 23.6 kg/m2 Deysi Haagen CHEMICAL RESEARCH TECHNICIAN-C Work Phone: 1(024)086-832099 [place] [address] 03-13-2025 14:06-0400 Body temperature 96.6 [degF] Deysi Haagen CHEMICAL RESEARCH TECHNICIAN-C Work Phone: 5(719)732-294599 [place] [address] 03-13-2025 14:06-0400 Body weight 60.55 kg Deysi Haagen CHEMICAL RESEARCH TECHNICIAN-C Work Phone: 4(481)061-151099 [place] [address] 03-13-2025 14:06-0400 Diastolic blood pressure 71 mm[Hg] Deysi Haagen CHEMICAL RESEARCH TECHNICIAN-C Work Phone: 0(070)141-525499 [place] [address] 03-13-2025 14:06-0400 Heart rate 91 /min Deysi Haagen CHEMICAL RESEARCH TECHNICIAN-C Work Phone: 0(796)156-180099 [place] [address] 03-13-2025 14:06-0400 Respiratory rate 16 /min Deysi Haagen CHEMICAL RESEARCH TECHNICIAN-C Work Phone: [facility] 03-13-2025 14:06-0400 SaO2% (BldA) [Mass fraction] 93 % Deysi Haagen CHEMICAL RESEARCH TECHNICIAN-C Work Phone: [facility] 03-13-2025 14:06-0400 Systolic blood pressure 152 mm[Hg] Deysi Haagen CHEMICAL RESEARCH TECHNICIAN-C Work Phone: [facility] 03-08-2025 09:53-0400 Body temperature 96.8 [degF] Deysi Haagen CHEMICAL RESEARCH TECHNICIAN-C Work Phone: 0(423)191-611199 [place] [address] 03-08-2025 09:53-0400 Diastolic blood pressure 40 mm[Hg] Deysi Haagen CHEMICAL RESEARCH TECHNICIAN-C Work Phone: 1(069)473-690649 [place] [address] 03-08-2025 09:53-0400 Heart rate 75 /min Deysi Haagen CHEMICAL RESEARCH TECHNICIAN-C Work Phone: 5(242)700-780549 [place] [address] 03-08-2025 09:53-0400 Respiratory rate 18 /min Deysi Haagen CHEMICAL RESEARCH TECHNICIAN-C Work Phone: 1(031)650-505099 [place] [address] 03-08-2025 09:53-0400 Systolic blood pressure 145 mm[Hg] Deysi Haagen CHEMICAL RESEARCH TECHNICIAN-C Work Phone: 0(654)211-134249 [place] [address] 03-01-2025 09:12-0400 Body temperature 97.1 [degF] Deysi Haagen CHEMICAL RESEARCH TECHNICIAN-C Work Phone: [facility] 03-01-2025 09:12-0400 Diastolic blood pressure 65 mm[Hg] Deysi Haagen CHEMICAL RESEARCH TECHNICIAN-C Work Phone: [facility] 03-01-2025 09:12-0400 Heart rate 79 /min Deysi Haagen CHEMICAL RESEARCH TECHNICIAN-C Work Phone: [facility] 03-01-2025 09:12-0400 Respiratory rate 18 /min Deysi Haagen CHEMICAL RESEARCH TECHNICIAN-C Work Phone: [facility] 03-01-2025 09:12-0400 Systolic blood pressure 125 mm[Hg] Deysi Haagen CHEMICAL RESEARCH TECHNICIAN-C Work Phone: 6(711)219-407499 [place] [address] 02-16-2025 17:24-0400 Body temperature 98 [degF] Deysi Haagen CHEMICAL RESEARCH TECHNICIAN-C Work Phone: 4(267)715-189399 [place] [address] 02-16-2025 17:24-0400 Diastolic blood pressure 72 mm[Hg] Deysi Haagen CHEMICAL RESEARCH TECHNICIAN-C Work Phone: 2(496)681-373499 [place] [address] 02-16-2025 17:24-0400 Heart rate 75 /min Deysi Haagen CHEMICAL RESEARCH TECHNICIAN-C Work Phone: 3(275)508-793399 [place] [address] 02-16-2025 17:24-0400 Respiratory rate 19 /min Deysi Haagen CHEMICAL RESEARCH TECHNICIAN-C Work Phone: 6(487)929-734199 [place] [address] 02-16-2025 17:24-0400 SaO2% (BldA) [Mass fraction] 100 % Deysi Haagen CHEMICAL RESEARCH TECHNICIAN-C Work Phone: 2(962)380-882499 [place] [address] 02-16-2025 17:24-0400 Systolic blood pressure 154 mm[Hg] Deysi Copeagen CHEMICAL RESEARCH TECHNICIAN-C Work Phone: 1(852)951-565699 [place] [address] 02-16-2025 12:09-0400 Body mass index (BMI) [Ratio] 25.8 kg/m2 Deysi Haagen CHEMICAL RESEARCH TECHNICIAN-C Work Phone: 8(650)664-128999 [place] [address] 02-16-2025 12:09-0400 Body weight 66.22 kg Deysi Haagen CHEMICAL RESEARCH TECHNICIAN-C Work Phone: 7(172)771-134799 [place] [address] 02-16-2025 11:26-0400 Body height 160.02 cm Deysi Haagen CHEMICAL RESEARCH TECHNICIAN-C Work Phone: 3(683)385-996099 [place] [address] 02-16-2025 11:26-0400 Inhaled oxygen flow rate 2 L/min Deysi Haagen CHEMICAL RESEARCH TECHNICIAN-C Work Phone: 5(395)304-200599 [place] [address] 02-05-2025 08:57-0400 Body height 160.02 cm Deysi Haagen CHEMICAL RESEARCH TECHNICIAN-C Work Phone: 4(869)700-321399 [place] [address] 02-05-2025 08:57-0400 Body mass index (BMI) [Ratio] 24.7 kg/m2 Deysi Haagen CHEMICAL RESEARCH TECHNICIAN-C Work Phone: 0(539)399-102049 [place] [address] 02-05-2025 08:57-0400 Body weight 63.5 kg Deysi Haagen CHEMICAL RESEARCH TECHNICIAN-C Work Phone: 8(420)448-960199 [place] [address] 02-05-2025 08:57-0400 Diastolic blood pressure 64 mm[Hg] Deysi Haagen CHEMICAL RESEARCH TECHNICIAN-C Work Phone: 9(155)774-269399 [place] [address] 02-05-2025 08:57-0400 Heart rate 77 /min Deysi Haagen CHEMICAL RESEARCH TECHNICIAN-C Work Phone: 5(750)124-046399 [place] [address] 02-05-2025 08:57-0400 Respiratory rate 16 /min Deysi Haagen CHEMICAL RESEARCH TECHNICIAN-C Work Phone: 3(158)321-488199 [place] [address] 02-05-2025 08:57-0400 Systolic blood pressure 143 mm[Hg] Deysi Copeagen CHEMICAL RESEARCH TECHNICIAN-C Work Phone: 4(385)372-703199 [place] [address] 01-11-2025 10:44-0400 Heart rate 71 /min Deysi Haagen CHEMICAL RESEARCH TECHNICIAN-C Work Phone: 0(969)134-027699 [place] [address] 01-11-2025 08:59-0400 Body temperature 98.1 [degF] Deysi Haagen CHEMICAL RESEARCH TECHNICIAN-C Work Phone: 7(700)052-353499 [place] [address] 01-11-2025 08:59-0400 Diastolic blood pressure 55 mm[Hg] Deysi Haagen CHEMICAL RESEARCH TECHNICIAN-C Work Phone: 5(057)788-516399 [place] [address] 01-11-2025 08:59-0400 Respiratory rate 18 /min Deysi Haagen CHEMICAL RESEARCH TECHNICIAN-C Work Phone: 8(062)282-864399 [place] [address] 01-11-2025 08:59-0400 SaO2% (BldA) [Mass fraction] 100 % Deysi Haagen CHEMICAL RESEARCH TECHNICIAN-C Work Phone: 6(609)251-181599 [place] [address] 01-11-2025 08:59-0400 Systolic blood pressure 153 mm[Hg] Deysi Haagen CHEMICAL RESEARCH TECHNICIAN-C Work Phone: 0(632)459-427899 [place] [address] 01-11-2025 05:50-0400 Body mass index (BMI) [Ratio] 28 kg/m2 Deysi Anatoliyagen CHEMICAL RESEARCH TECHNICIAN-C Work Phone: 0(631)100-179199 [place] [address] 01-11-2025 05:50-0400 Body weight 71.8 kg Deysi Haagen CHEMICAL RESEARCH TECHNICIAN-C Work Phone: 3(696)227-882399 [place] [address] 01-08-2025 10:03-0400 Body height 160.02 cm Deysi Haagen CHEMICAL RESEARCH TECHNICIAN-C Work Phone: 0(250)977-401899 [place] [address] 01-07-2025 17:11-0400 Diastolic blood pressure 66 mm[Hg] Deysi Haagen CHEMICAL RESEARCH TECHNICIAN-C Work Phone: 3(818)074-567499 [place] [address] 01-07-2025 17:11-0400 Heart rate 75 /min Deysi Haagen CHEMICAL RESEARCH TECHNICIAN-C Work Phone: 2(022)554-538699 [place] [address] 01-07-2025 17:11-0400 Respiratory rate 16 /min Deysi Haagen CHEMICAL RESEARCH TECHNICIAN-C Work Phone: 1(743)821-369899 [place] [address] 01-07-2025 17:11-0400 SaO2% (BldA) [Mass fraction] 100 % Deysi Haagen CHEMICAL RESEARCH TECHNICIAN-C Work Phone: 4(794)048-106499 [place] [address] 01-07-2025 17:11-0400 Systolic blood pressure 154 mm[Hg] Deysi Haagen CHEMICAL RESEARCH TECHNICIAN-C Work Phone: 4(017)349-941299 [place] [address] 01-07-2025 16:28-0400 Body temperature 97.7 [degF] Deysi Copeagen CHEMICAL RESEARCH TECHNICIAN-C Work Phone: 9(679)348-875399 [place] [address] 01-07-2025 13:27-0400 Body mass index (BMI) [Ratio] 27.5 kg/m2 Deysi Haagen CHEMICAL RESEARCH TECHNICIAN-C Work Phone: 6(253)271-962699 [place] [address] 01-07-2025 13:27-0400 Body weight 70.48 kg Deysi Haagen CHEMICAL RESEARCH TECHNICIAN-C Work Phone: 8(019)706-523899 [place] [address] 01-07-2025 12:47-0400 Body height 160.02 cm Deysi Collazo CHEMICAL RESEARCH TECHNICIAN-C Work Phone: 4(368)563-023199 [place] [address] 01-01-2025 10:29-0400 Body height 157.5 cm Carla Burdick MD Work Phone: [facility] 01-01-2025 10:29-0400 Body mass index (BMI) [Ratio] 27.18 kg/m2 Carla Burdick MD Work Phone: [facility] 01-01-2025 10:29-0400 Body weight 67.41 kg Carla Burdick MD Work Phone: [facility] 01-01-2025 10:29-0400 Diastolic blood pressure 60 mm[Hg] Carla Burdick MD Work Phone: [facility] 01-01-2025 10:29-0400 Heart rate 84 /min Carla Burdick MD Work Phone: [facility] 01-01-2025 10:29-0400 Respiratory rate 18 /min Carla Burdick MD Work Phone: [facility] 01-01-2025 10:29-0400 SaO2% (BldA) [Mass fraction] 100 % Carla Burdick MD Work Phone: [facility] 01-01-2025 10:29-0400 Systolic blood pressure 156 mm[Hg] Carla Burdick MD Work Phone: [facility] 12-20-2024 08:29-0400 Body mass index (BMI) [Ratio] 27.18 kg/m2 Lars Silva DO Work Phone: [facility] 12-20-2024 08:29-0400 Body weight 67.4 kg Lars Silva DO Work Phone: [facility] 12-20-2024 08:29-0400 Diastolic blood pressure 75 mm[Hg] Lars Silva DO Work Phone: [facility] 12-20-2024 08:29-0400 Heart rate 77 /min Lars Silva DO Work Phone: [facility] 12-20-2024 08:29-0400 SaO2% (BldA) [Mass fraction] 100 % Lars Silva DO Work Phone: [facility] 12-20-2024 08:29-0400 Systolic blood pressure 154 mm[Hg] Lars Silva DO Work Phone: [facility] 12-19-2024 11:38-0400 Diastolic blood pressure 54 mm[Hg] Albin Aurin CLARITY DEVELOPER.KNIT GOODS MENDER Work Phone: [facility] Comment on above: post IV lasix 12-19-2024 11:38-0400 Systolic blood pressure 157 mm[Hg] Albin Aurin CLARITY DEVELOPER.KNIT GOODS MENDER Work Phone: [facility] Comment on above: post IV lasix 12-19-2024 10:56-0400 Body mass index (BMI) [Ratio] 26.34 kg/m2 Albin Aurin CLARITY DEVELOPER.KNIT GOODS MENDER Work Phone: [facility] 12-19-2024 10:56-0400 Body weight 65.32 kg Albin Aurin CLARITY DEVELOPER.KNIT GOODS MENDER Work Phone: [facility] 12-19-2024 10:56-0400 Heart rate 79 /min Albin Aurin CLARITY DEVELOPER.KNIT GOODS MENDER Work Phone: [facility] 12-19-2024 10:56-0400 SaO2% (BldA) [Mass fraction] 99 % Albin Aurin CLARITY DEVELOPER.KNIT GOODS MENDER Work Phone: [facility] 11-20-2024 08:06-0400 Body height 157.5 cm Carla Burdick MD Work Phone: [facility] 11-20-2024 08:06-0400 Body mass index (BMI) [Ratio] 26.3 kg/m2 Carla Burdick MD Work Phone: [facility] 11-20-2024 08:06-0400 Body weight 65.23 kg Carla Burdick MD Work Phone: [facility] 11-20-2024 08:06-0400 Diastolic blood pressure 62 mm[Hg] Carla Burdick MD Work Phone: [facility] 11-20-2024 08:06-0400 Heart rate 84 /min Carla Burdick MD Work Phone: [facility] 11-20-2024 08:06-0400 Respiratory rate 12 /min Carla Burdick MD Work Phone: [facility] 11-20-2024 08:06-0400 SaO2% (BldA) [Mass fraction] 99 % Carla Burdick MD Work Phone: [facility] 11-20-2024 08:06-0400 Systolic blood pressure 154 mm[Hg] Carla Burdick MD Work Phone: [facility] 11-06-2024 15:03-0400 Body height 157.5 cm Carla Burdick MD Work Phone: [facility] 11-06-2024 15:03-0400 Body mass index (BMI) [Ratio] 27.8 kg/m2 Carla Burdick MD Work Phone: [facility] 11-06-2024 15:03-0400 Body weight 68.95 kg Carla Burdick MD Work Phone: [facility] 11-06-2024 15:03-0400 Diastolic blood pressure 54 mm[Hg] Carla Burdick MD Work Phone: [facility] 11-06-2024 15:03-0400 Heart rate 68 /min Carla Burdick MD Work Phone: [facility] 11-06-2024 15:03-0400 Respiratory rate 12 /min Carla Burdick MD Work Phone: [facility] 11-06-2024 15:03-0400 SaO2% (BldA) [Mass fraction] 100 % Carla Burdick MD Work Phone: [facility] 11-06-2024 15:03-0400 Systolic blood pressure 134 mm[Hg] Carla Burdick MD Work Phone: [facility] 11-03-2024 10:06-0400 Diastolic blood pressure 44 mm[Hg] Albin Gu APRN.CNP Work Phone: [facility] 11-03-2024 10:06-0400 Systolic blood pressure 121 mm[Hg] Albin Gu CLARITY DEVELOPER.KNIT GOODS MENDER Work Phone: [facility] 11-03-2024 08:56-0400 Body mass index (BMI) [Ratio] 26.89 kg/m2 Albin Quinteroin CLARITY DEVELOPER.KNIT GOODS MENDER Work Phone: [facility] 11-03-2024 08:56-0400 Body weight 66.68 kg Albin Quinteroin CLARITY DEVELOPER.KNIT GOODS MENDER Work Phone: [facility] 11-03-2024 08:56-0400 Heart rate 66 /min Albin Quinteroin CLARITY DEVELOPER.KNIT GOODS MENDER Work Phone: [facility] 11-03-2024 08:56-0400 SaO2% (BldA) [Mass fraction] 100 % Albin Quinteroin CLARITY DEVELOPER.KNIT GOODS MENDER Work Phone: [facility] 10-31-2024 11:09-0400 Body mass index (BMI) [Ratio] 25.97 kg/m2 Shaye Domingo CLARITY DEVELOPER.KNIT GOODS MENDER Work Phone: [facility] 10-31-2024 11:09-0400 Body weight 64.41 kg Shaye Domingo APRN.KNIT GOODS MENDER Work Phone: [facility] 10-31-2024 11:09-0400 Diastolic blood pressure 68 mm[Hg] Shaye Domingo APRN.KNIT GOODS MENDER Work Phone: [facility] 10-31-2024 11:09-0400 Heart rate 84 /min Shaye Domingo APRN.KNIT GOODS MENDER Work Phone: [facility] 10-31-2024 11:09-0400 Systolic blood pressure 147 mm[Hg] Shaye Domingo APRN.KNIT GOODS MENDER Work Phone: [facility] 04-07-2024 09:30-0400 Body mass index (BMI) [Ratio] 25.06 kg/m2 Albin Quinteroin CLARITY DEVELOPER.KNIT GOODS MENDER Work Phone: [facility] 04-07-2024 09:30-0400 Body weight 62.14 kg Albin Aurin CLARITY DEVELOPER.KNIT GOODS MENDER Work Phone: [facility] 04-07-2024 09:30-0400 Diastolic blood pressure 47 mm[Hg] Albin Aurin CLARITY DEVELOPER.KNIT GOODS MENDER Work Phone: [facility] 04-07-2024 09:30-0400 Heart rate 91 /min Albin Aurin CLARITY DEVELOPER.KNIT GOODS MENDER Work Phone: [facility] 04-07-2024 09:30-0400 SaO2% (BldA) [Mass fraction] 98 % Albin Aurin CLARITY DEVELOPER.KNIT GOODS MENDER Work Phone: [facility] 04-07-2024 09:30-0400 Systolic blood pressure 142 mm[Hg] Albin Aurin CLARITY DEVELOPER.KNIT GOODS MENDER Work Phone: [facility] 01-17-2024 09:50-0400 Body height 157.5 cm Carla Burdick MD Work Phone: [facility] 01-17-2024 09:50-0400 Body mass index (BMI) [Ratio] 26.92 kg/m2 Carla Burdick MD Work Phone: [facility] 01-17-2024 09:50-0400 Body weight 66.77 kg Carla Burdick MD Work Phone: [facility] 01-17-2024 09:50-0400 Diastolic blood pressure 59 mm[Hg] Carla Burdick MD Work Phone: [facility] 01-17-2024 09:50-0400 Heart rate 64 /min Carla Burdick MD Work Phone: [facility] 01-17-2024 09:50-0400 SaO2% (BldA) [Mass fraction] 99 % Carla Burdick MD Work Phone: [facility] 01-17-2024 09:50-0400 Systolic blood pressure 157 mm[Hg] Carla Burdick MD Work Phone: [facility] 12-07-2023 11:46-0400 Diastolic blood pressure 76 mm[Hg] Deysi Collazo CLARITY DEVELOPER.KNIT GOODS MENDER Work Phone: [facility] 12-07-2023 11:46-0400 Heart rate 68 /min Deysi Haagen CLARITY DEVELOPER.KNIT GOODS MENDER Work Phone: [facility] 12-07-2023 11:46-0400 Respiratory rate 16 /min Deysi Haagen CLARITY DEVELOPER.KNIT GOODS MENDER Work Phone: [facility] 12-07-2023 11:46-0400 SaO2% (BldA) [Mass fraction] 97 % Deysi Haagen CLARITY DEVELOPER.KNIT GOODS MENDER Work Phone: [facility] 12-07-2023 11:46-0400 Systolic blood pressure 128 mm[Hg] Deysi Haagen CLARITY DEVELOPER.KNIT GOODS MENDER Work Phone: [facility] 11-25-2023 10:42-0400 Diastolic blood pressure 37 mm[Hg] Albin Aurin CLARITY DEVELOPER.KNIT GOODS MENDER Work Phone: [facility] 11-25-2023 10:42-0400 Systolic blood pressure 160 mm[Hg] Albin Aurin CLARITY DEVELOPER.KNIT GOODS MENDER Work Phone: [facility] 11-25-2023 10:00-0400 Body mass index (BMI) [Ratio] 26.89 kg/m2 Albin Aurin CLARITY DEVELOPER.KNIT GOODS MENDER Work Phone: [facility] 11-25-2023 10:00-0400 Body weight 66.68 kg Albin Aurin CLARITY DEVELOPER.KNIT GOODS MENDER Work Phone: [facility] 11-25-2023 10:00-0400 Heart rate 60 /min Albin Aurin CLARITY DEVELOPER.KNIT GOODS MENDER Work Phone: [facility] 11-25-2023 10:00-0400 SaO2% (BldA) [Mass fraction] 98 % Albin Aurin CLARITY DEVELOPER.KNIT GOODS MENDER Work Phone: [facility] 11-22-2023 09:09-0400 Body mass index (BMI) [Ratio] 27.44 kg/m2 Deysi Haagen CLARITY DEVELOPER.KNIT GOODS MENDER Work Phone: [facility] 11-22-2023 09:09-0400 Body weight 68.04 kg Deysi Hadon CLARITY DEVELOPER.KNIT GOODS MENDER Work Phone: [facility] 11-22-2023 09:09-0400 Diastolic blood pressure 76 mm[Hg] Deysi Haagen CLARITY DEVELOPER.KNIT GOODS MENDER Work Phone: [facility] 11-22-2023 09:09-0400 Heart rate 67 /min Deysi Haagen CLARITY DEVELOPER.KNIT GOODS MENDER Work Phone: [facility] 11-22-2023 09:09-0400 Respiratory rate 16 /min Deysi Haagen CLARITY DEVELOPER.KNIT GOODS MENDER Work Phone: [facility] 11-22-2023 09:09-0400 SaO2% (BldA) [Mass fraction] 98 % Deysi Haagen CLARITY DEVELOPER.KNIT GOODS MENDER Work Phone: [facility] 11-22-2023 09:09-0400 Systolic blood pressure 128 mm[Hg] Deysi Haagen CLARITY DEVELOPER.KNIT GOODS MENDER Work Phone: [facility] 11-08-2023 16:36-0400 Body mass index (BMI) [Ratio] 29.98 kg/m2 Bereneo Boykin CLARITY DEVELOPER.KNIT GOODS MENDER Work Phone: [facility] 11-08-2023 16:36-0400 Body weight 73.17 kg Bree Boykin CLARITY DEVELOPER.C CHEMICAL RESEARCH TECHNICIAN Work Phone: [facility] 11-08-2023 16:36-0400 Diastolic blood pressure 70 mm[Hg] Bere Boykin CLARITY DEVELOPER.KNIT GOODS MENDER Work Phone: [facility] 11-08-2023 16:36-0400 Heart rate 94 /min Bere Boykin CLARITY DEVELOPER.C CHEMICAL RESEARCH TECHNICIAN Work Phone: [facility] 11-08-2023 16:36-0400 SaO2% (BldA) [Mass fraction] 95 % Bere Boykin CLARITY DEVELOPER.KNIT GOODS MENDER Work Phone: [facility] 11-08-2023 16:36-0400 Systolic blood pressure 156 mm[Hg] Bere Boykin CLARITY DEVELOPER.KNIT GOODS MENDER Work Phone: [facility] 11-04-2023 08:08-0400 Body mass index (BMI) [Ratio] 29.74 kg/m2 NA Le PA-C Work Phone: [facility] 11-04-2023 08:08-0400 Body weight 72.58 kg NA Le PA-C Work Phone: [facility] 11-04-2023 08:08-0400 Diastolic blood pressure 70 mm[Hg] NA Le PA-C Work Phone: [facility] 11-04-2023 08:08-0400 Heart rate 88 /min NA Le PA-C Work Phone: [facility] 11-04-2023 08:08-0400 Respiratory rate 20 /min NA Le PA-C Work Phone: [facility] 11-04-2023 08:08-0400 SaO2% (BldA) [Mass fraction] 97 % NA Le PA-C Work Phone: [facility] 11-04-2023 08:08-0400 Systolic blood pressure 130 mm[Hg] NA Le PA-C Work Phone: [facility] 10-18-2023 13:11-0400 Diastolic blood pressure 76 mm[Hg] NA Le PA-C Work Phone: [facility] 10-18-2023 13:11-0400 Systolic blood pressure 144 mm[Hg] NA Le PA-C Work Phone: [facility] 10-18-2023 13:04-0400 Body weight 75.48 kg NA Le PA-C Work Phone: [facility] 10-18-2023 13:04-0400 Heart rate 90 /min NA Le PA-C Work Phone: [facility] 10-18-2023 13:04-0400 Respiratory rate 20 /min NA Le PA-C Work Phone: [facility] 10-18-2023 13:04-0400 SaO2% (BldA) [Mass fraction] 99 % NA Le PA-C Work Phone: [facility] 10-14-2023 14:40-0400 Diastolic blood pressure 73 mm[Hg] Lars Silva DO Work Phone: [facility] 10-14-2023 14:40-0400 Heart rate 85 /min Lars Silva DO Work Phone: [facility] 10-14-2023 14:40-0400 SaO2% (BldA) [Mass fraction] 97 % Lars Silva DO Work Phone: [facility] 10-14-2023 14:40-0400 Systolic blood pressure 153 mm[Hg] Lars Silva DO Work Phone: [facility] 07-05-2023 11:19-0500 Body temperature 98.49 [degF] Bijan Cole MD Work Phone: [facility] 07-05-2023 11:19-0500 Body weight 71.31 kg Bijan Cole MD Work Phone: [facility] 07-05-2023 11:19-0500 Diastolic blood pressure 80 mm[Hg] Bijan Cole MD Work Phone: [facility] 07-05-2023 11:19-0500 Heart rate 90 /min Bijan Cole MD Work Phone: [facility] 07-05-2023 11:19-0500 Respiratory rate 20 /min Bijan Cole MD Work Phone: [facility] 07-05-2023 11:19-0500 SaO2% (BldA) [Mass fraction] 98 % Bijan Cole MD Work Phone: [facility] 07-05-2023 11:19-0500 Systolic blood pressure 158 mm[Hg] Bijan Cole MD Work Phone: [facility] 01-07-2023 08:44-0400 Body weight 65.77 kg NA Le PA-C Work Phone: [facility] 01-07-2023 08:44-0400 Diastolic blood pressure 72 mm[Hg] NA Le PA-C Work Phone: [facility] 01-07-2023 08:44-0400 Heart rate 70 /min NA Le PA-C Work Phone: [facility] 01-07-2023 08:44-0400 Respiratory rate 16 /min NA Le PA-C Work Phone: [facility] 01-07-2023 08:44-0400 SaO2% (BldA) [Mass fraction] 96 % NA Le PA-C Work Phone: [facility] 01-07-2023 08:44-0400 Systolic blood pressure 136 mm[Hg] NA Le PA-C Work Phone: [facility] 10-06-2022 09:13-0400 Body weight 66.22 kg NA Le PA-C Work Phone: [facility] 10-06-2022 09:13-0400 Diastolic blood pressure 68 mm[Hg] NA Le PA-C Work Phone: [facility] 10-06-2022 09:13-0400 Heart rate 81 /min NA Le PA-C Work Phone: [facility] 10-06-2022 09:13-0400 Respiratory rate 18 /min NA Le PA-C Work Phone: [facility] 10-06-2022 09:13-0400 SaO2% (BldA) [Mass fraction] 96 % NA Le PA-C Work Phone: [facility] 10-06-2022 09:13-0400 Systolic blood pressure 144 mm[Hg] NA Le PA-C Work Phone: [facility] 09-28-2022 09:15-0400 Body height 156.2 cm Carla Burdick MD Work Phone: [facility] 09-28-2022 09:15-0400 Body weight 68.4 kg Carla Burdick MD Work Phone: [facility] 09-28-2022 09:15-0400 Diastolic blood pressure 74 mm[Hg] Carla Burdick MD Work Phone: [facility] 09-28-2022 09:15-0400 Heart rate 78 /min Carla Burdick MD Work Phone: [facility] 09-28-2022 09:15-0400 Systolic blood pressure 128 mm[Hg] Carla Burdick MD Work Phone: [facility] 07-07-2022 08:56-0500 Body weight 65.32 kg NA Le PA-C Work Phone: [facility] 07-07-2022 08:56-0500 Diastolic blood pressure 62 mm[Hg] NA Le PA-C Work Phone: [facility] 07-07-2022 08:56-0500 Heart rate 74 /min NA Le PA-C Work Phone: [facility] 07-07-2022 08:56-0500 Respiratory rate 16 /min NA Le PA-C Work Phone: [facility] 07-07-2022 08:56-0500 SaO2% (BldA) [Mass fraction] 97 % NA Le PA-C Work Phone: [facility] 07-07-2022 08:56-0500 Systolic blood pressure 148 mm[Hg] NA Le PA-C Work Phone: [facility] 05-14-2022 09:27-0500 Body temperature 98.91 [degF] Sonny Lund MD Work Phone: [facility] 05-14-2022 09:27-0500 Body weight 68.49 kg Sonny Lund MD Work Phone: [facility] 05-14-2022 09:27-0500 Diastolic blood pressure 72 mm[Hg] Sonny Lund MD Work Phone: [facility] 05-14-2022 09:27-0500 Heart rate 84 /min Sonny Lund MD Work Phone: [facility] 05-14-2022 09:27-0500 Respiratory rate 16 /min Sonny Lund MD Work Phone: [facility] 05-14-2022 09:27-0500 SaO2% (BldA) [Mass fraction] 98 % Sonny Lund MD Work Phone: [facility] 05-14-2022 09:27-0500 Systolic blood pressure 147 mm[Hg] Sonny Lund MD Work Phone: [facility] 04-28-2022 09:09-0400 Body temperature 97.3 [degF] Treatment Wstr Work Phone: [facility] 04-28-2022 09:09-0400 Diastolic blood pressure 62 mm[Hg] Treatment Wstr Work Phone: [facility] 04-28-2022 09:09-0400 Heart rate 83 /min Treatment Wstr Work Phone: [facility] 04-28-2022 09:09-0400 Systolic blood pressure 122 mm[Hg] Treatment Wstr Work Phone: [facility] 04-22-2022 10:54-0400 Body temperature 97.11 [degF] Treatment Wstr Work Phone: [facility] 04-22-2022 10:54-0400 Diastolic blood pressure 68 mm[Hg] Treatment Wstr Work Phone: [facility] 04-22-2022 10:54-0400 Heart rate 102 /min Treatment Wstr Work Phone: [facility] 04-22-2022 10:54-0400 Systolic blood pressure 135 mm[Hg] Treatment Wstr Work Phone: [facility] 04-20-2022 09:30-0400 Body temperature 97.9 [degF] Treatment Wstr Work Phone: [facility] 04-20-2022 09:30-0400 Diastolic blood pressure 61 mm[Hg] Treatment Wstr Work Phone: [facility] 04-20-2022 09:30-0400 Heart rate 98 /min Treatment Wstr Work Phone: [facility] 04-20-2022 09:30-0400 Systolic blood pressure 130 mm[Hg] Treatment Wstr Work Phone: [facility] 04-17-2022 15:31-0400 Body temperature 98.1 [degF] Treatment Wstr Work Phone: [facility] 04-17-2022 15:31-0400 Diastolic blood pressure 66 mm[Hg] Treatment Wstr Work Phone: [facility] 04-17-2022 15:31-0400 Heart rate 97 /min Treatment Wstr Work Phone: [facility] 04-17-2022 15:31-0400 SaO2% (BldA) [Mass fraction] 99 % Treatment Wstr Work Phone: [facility] 04-17-2022 15:31-0400 Systolic blood pressure 137 mm[Hg] Treatment Wstr Work Phone: [facility] 04-09-2022 11:33-0400 Body height 161.3 cm Brayan Chicas MD Work Phone: [facility] 04-09-2022 11:33-0400 Body weight 67.59 kg Brayan Chicas MD Work Phone: [facility] 04-06-2022 10:44-0400 Body weight 66.68 kg NA Le PA-C Work Phone: [facility] 04-06-2022 10:44-0400 Diastolic blood pressure 72 mm[Hg] NA Le PA-C Work Phone: [facility] 04-06-2022 10:44-0400 Heart rate 95 /min NA Le PA-C Work Phone: [facility] 04-06-2022 10:44-0400 Respiratory rate 24 /min NA Le PA-C Work Phone: [facility] 04-06-2022 10:44-0400 SaO2% (BldA) [Mass fraction] 99 % NA Le PA-C Work Phone: [facility] 04-06-2022 10:44-0400 Systolic blood pressure 148 mm[Hg] NA Le PA-C Work Phone: [facility] 03-30-2022 08:49-0400 Body weight 65.32 kg Carla Burdick MD Work Phone: [facility] 03-30-2022 08:49-0400 Diastolic blood pressure 64 mm[Hg] Carla Burdick MD Work Phone: [facility] 03-30-2022 08:49-0400 Heart rate 90 /min Carla Burdick MD Work Phone: [facility] 03-30-2022 08:49-0400 SaO2% (BldA) [Mass fraction] 100 % Carla Burdick MD Work Phone: [facility] 03-30-2022 08:49-0400 Systolic blood pressure 144 mm[Hg] Carla Burdick MD Work Phone: [facility] 03-19-2022 11:07-0400 Body weight 69.85 kg NA Le PA-C Work Phone: [facility] 03-19-2022 11:07-0400 Diastolic blood pressure 66 mm[Hg] NA Le PA-C Work Phone: [facility] 03-19-2022 11:07-0400 Heart rate 112 /min NA Le PA-C Work Phone: [facility] 03-19-2022 11:07-0400 Respiratory rate 24 /min NA Le PA-C Work Phone: [facility] 03-19-2022 11:07-0400 SaO2% (BldA) [Mass fraction] 97 % NA Le PA-C Work Phone: [facility] 03-19-2022 11:07-0400 Systolic blood pressure 148 mm[Hg] NA Le PA-C Work Phone: [facility] 03-03-2022 13:45-0400 Body height 160 cm Radha Brian CLARITY DEVELOPER.[employer] M[employer]ER Work Phone: [facility] 03-03-2022 13:45-0400 Body weight 63.5 kg Radha Brian CLARITY DEVELOPER.[employer] M[employer]ER Work Phone: [facility] 03-03-2022 13:45-0400 Diastolic blood pressure 72 mm[Hg] Radha Brian CLARITY DEVELOPER.[employer] M[employer]ER Work Phone: [facility] 03-03-2022 13:45-0400 Heart rate 98 /min Radha Brian CLARITY DEVELOPER.[employer] M[employer]ER Work Phone: [facility] 03-03-2022 13:45-0400 Systolic blood pressure 141 mm[Hg] Radha Brian CLARITY DEVELOPER.KN[employer] MENDER Work Phone: [facility] 03-03-2022 13:00-0400 Diastolic blood pressure 62 mm[Hg] [facility] 03-03-2022 13:00-0400 Heart rate 105 /min [facility] 03-03-2022 13:00-0400 SaO2% (BldA) [Mass fraction] 94 % [facility] 03-03-2022 13:00-0400 Systolic blood pressure 129 mm[Hg] [facility] 03-03-2022 12:50-0400 Respiratory rate 12 /min [facility] 03-03-2022 10:56-0400 Body temperature 97.5 [degF] [facility] 02-20-2022 09:31-0400 Body weight 64.86 kg NA Le PA-C Work Phone: [facility] 02-20-2022 09:31-0400 Diastolic blood pressure 78 mm[Hg] NA Le PA-C Work Phone: [facility] 02-20-2022 09:31-0400 Heart rate 116 /min NA Le PA-C Work Phone: [facility] 02-20-2022 09:31-0400 Respiratory rate 16 /min NA Le PA-C Work Phone: [facility] 02-20-2022 09:31-0400 SaO2% (BldA) [Mass fraction] 100 % NA Le PA-C Work Phone: [facility] 02-20-2022 09:31-0400 Systolic blood pressure 132 mm[Hg] NA Le PA-C Work Phone: [facility] 01-16-2022 10:26-0400 Body temperature 98.49 [degF] NA Le PA-C Work Phone: [facility] 01-16-2022 10:26-0400 Body weight 64.41 kg NA Le PA-C Work Phone: [facility] 01-16-2022 10:26-0400 Diastolic blood pressure 72 mm[Hg] NA Le PA-C Work Phone: [facility] 01-16-2022 10:26-0400 Heart rate 92 /min NA Le PA-C Work Phone: [facility] 01-16-2022 10:26-0400 Respiratory rate 16 /min NA Le PA-C Work Phone: [facility] 01-16-2022 10:26-0400 SaO2% (BldA) [Mass fraction] 98 % NA Le PA-C Work Phone: [facility] 01-16-2022 10:26-0400 Systolic blood pressure 138 mm[Hg] NA Le PA-C Work Phone: [facility] 01-09-2022 14:25-0400 Diastolic blood pressure 66 mm[Hg] Emilia Diallo MD Work Phone: [facility] 01-09-2022 14:25-0400 Heart rate 95 /min Emilia Diallo MD Work Phone: [facility] 01-09-2022 14:25-0400 SaO2% (BldA) [Mass fraction] 99 % Emilia Diallo MD Work Phone: [facility] 01-09-2022 14:25-0400 Systolic blood pressure 133 mm[Hg] Emilia Diallo MD Work Phone: [facility] 01-02-2022 11:15-0400 Diastolic blood pressure 60 mm[Hg] Chai Encinas MD Work Phone: [facility] 01-02-2022 11:15-0400 Heart rate 89 /min Chai Encinas MD Work Phone: [facility] 01-02-2022 11:15-0400 SaO2% (BldA) [Mass fraction] 97 % Chai Encinas MD Work Phone: [facility] 01-02-2022 11:15-0400 Systolic blood pressure 134 mm[Hg] Chai Encinas MD Work Phone: [facility] 01-02-2022 11:00-0400 Respiratory rate 20 /min Chia Encinas MD Work Phone: [facility] 01-02-2022 10:42-0400 Body temperature 97.9 [degF] Chai Encinas MD Work Phone: [facility] 01-02-2022 08:59-0400 Body height 160 cm Chai Encinas MD Work Phone: [facility] 01-02-2022 08:59-0400 Body weight 65.77 kg Chai Encinas MD Work Phone: [facility] 01-01-2022 09:45-0400 Body height 160 cm Chai Encinas MD Work Phone: [facility] 01-01-2022 09:45-0400 Body temperature 97 [degF] Chai Encinas MD Work Phone: [facility] 01-01-2022 09:45-0400 Body weight 65.77 kg Chai Encinas MD Work Phone: [facility] 01-01-2022 09:45-0400 Diastolic blood pressure 52 mm[Hg] Chai Encinas MD Work Phone: [facility] 01-01-2022 09:45-0400 Heart rate 100 /min Chai Encinas MD Work Phone: [facility] 01-01-2022 09:45-0400 SaO2% (BldA) [Mass fraction] 98 % Chai Encinas MD Work Phone: [facility] 01-01-2022 09:45-0400 Systolic blood pressure 122 mm[Hg] Chai Encinas MD Work Phone: [facility] 12-30-2021 13:16-0400 Body temperature 96.9 [degF] [facility] Work Phone: 12-30-2021 13:16-0400 Diastolic blood pressure 54 mm[Hg] [facility] Work Phone: 12-30-2021 13:16-0400 Heart rate 73 /min [facility] Work Phone: 12-30-2021 13:16-0400 Respiratory rate 16 /min [facility] Work Phone: 12-30-2021 13:16-0400 SaO2% (BldA) [Mass fraction] 97 % [facility] Work Phone: 12-30-2021 13:16-0400 Systolic blood pressure 113 mm[Hg] [facility] Work Phone: 12-30-2021 08:17-0400 Body height 160.02 cm [facility] Work Phone: 12-15-2021 09:08-0400 Body temperature 98.2 [degF] NA Le PA-C Work Phone: [facility] 12-15-2021 09:08-0400 Body weight 66.04 kg NA Le PA-C Work Phone: [facility] 12-15-2021 09:08-0400 Diastolic blood pressure 64 mm[Hg] NA Le PA-C Work Phone: [facility] 12-15-2021 09:08-0400 Heart rate 97 /min NA Le PA-C Work Phone: [facility] 12-15-2021 09:08-0400 Respiratory rate 18 /min NA Le PA-C Work Phone: [facility] 12-15-2021 09:08-0400 SaO2% (BldA) [Mass fraction] 99 % NA Le PA-C Work Phone: [facility] 12-15-2021 09:08-0400 Systolic blood pressure 118 mm[Hg] NA Le PA-C Work Phone: [facility] 11-26-2021 09:54-0400 Body height 160 cm Na James CLARITY DEVELOPER.CN P Work Phone: [facility] 11-26-2021 09:54-0400 Body weight 65.77 kg [employer] CLARITY DEVELOPER.CN P Work Phone: [facility] 01-19-2019 10:25-0400 BMI (Body Mass Index) 28.62 kg/m2 [facility] [employer] 01-19-2019 10:25-0400 Body weight 72.12 kg [facility] 01-19-2019 10:25-0400 BP Diastolic 64 mm[Hg] [facility] 01-19-2019 10:25-0400 BP Systolic 134 mm[Hg] [facility] 01-19-2019 10:25-0400 Height 158.8 cm [facility] 01-19-2019 10:25-0400 Pulse (Heart Rate) 100 /min [facility] 01-19-2019 10:25-0400 Pulse Oximetry 99 % [facility] 01-19-2019 10:25-0400 Respiratory Rate 16 /min [facility] Encounters Encounter Date Encounter Type Care Provider Facility Start: 05-10-2025 ambulatory [facility] Start: 05-07-2025 End: 05-07-2025 ambulatory Vincent Chi Mark Facility:[facility] Start: 05-03-2025 ambulatory Vincent Chi [facility] Start: 05-03-2025 End: 05-04-2025 ambulatory Vincent Chi Mark Facility:[facility] Start: 05-02-2025 End: 05-02-2025 ambulatory Vincent Chi Mark Facility:[facility] Start: 04-24-2025 End: 04-24-2025 Dr. Ric Noriega MD -[facility] Work Phone: Start: 04-24-2025 End: 04-24-2025 ambulatory Deysi Haagen CHEMICAL RESEARCH TECHNICIAN-C Work Phone: -[facility] Start: 04-22-2025 End: 04-22-2025 ambulatory Vincent Chi Mark Facility:[facility] Start: 04-22-2025 End: 04-22-2025 Dr. Yaniv Masters MD -[facility] Work Phone: Start: 04-19-2025 Dr. Javi Moore [facility] Start: 04-12-2025 ambulatory [facility] Chi [facility] Start: 04-12-2025 Dr. Ebony Cerrato MD [facility] Work Phone: Start: 04-05-2025 ambulatory [facility] Chi [facility] Start: 04-05-2025 Dr. Ebony Cerrato MD [facility] Work Phone: Start: 04-05-2025 Dr. Ebony Cerrato [facility] Work Phone: Start: 04-02-2025 End: 04-02-2025 ambulatory Deysi Collazo CHEMICAL RESEARCH TECHNICIAN-C Work Phone: -[facility]atory [facility] Fl[facility] Start: 04-02-2025 End: 04-02-2025 Dr. Vincent Flores MD -[facility] Start: 04-02-2025 End: 04-02-2025 ambulatory Vincent Chi Mark Facility:[facility] Start: 03-29-2025 End: 04-03-2025 ambulatory Deysi Collazo CHEMICAL RESEARCH TECHNICIAN-C Work Phone: [facility] Start: 03-29-2025 End: 04-03-2025 Dr. Ebony Cerrato MD -[facility] Work Phone: Start: 03-27-2025 Dr. Ric rodriguez MD -[facility] Start: 03-22-2025 End: 03-22-2025 Deysi Haagen CHEMICAL RESEARCH TECHNICIAN-C Work Phone: -Emergency Department Work Phone: Start: 03-22-2025 End: 03-22-2025 Emergency department patient visit Deysi Haagen CHEMICAL RESEARCH TECHNICIAN-C Work Phone: -Emergency Department Start: 03-20-2025 Dr. Ric rodriguez MD -[facility] Start: 03-15-2025 ambulatory Vincent Chi Mark Facility:[facility] Start: 03-15-2025 Dr. Ebony Cerrato MD -[facility] Work Phone: Start: 03-13-2025 End: 03-13-2025 Dr. Ric Noriega MD -[facility] Work Phone: Start: 03-13-2025 End: 03-13-2025 ambulatory Deysi Haagen CHEMICAL RESEARCH TECHNICIAN-C Work Phone: -[facility] Start: 03-09-2025 ambulatory Vincent Chi Mark Facility:[facility] Start: 03-09-2025 End: 03-09-2025 ambulatory Deysi Haagen CHEMICAL RESEARCH TECHNICIAN-C Work Phone: -Laboratory Start: 03-09-2025 End: 03-09-2025 Dr. Vincent Flores MD -Laboratory Work Phone: Start: 03-08-2025 End: 03-09-2025 ambulatory Vincent Chi Mark Facility:[facility] Start: 03-08-2025 Dr. Ebony Cerrato MD -[facility] Work Phone: Start: 03-08-2025 Dr. Ebony Cerrato MD -[facility] Work Phone: Start: 03-02-2025 End: 03-02-2025 ambulatory Deysi Haagen CHEMICAL RESEARCH TECHNICIAN-C Work Phone: -[facility] Start: 03-02-2025 End: 03-02-2025 Dr. Vincent Flores MD -[facility] Start: 03-01-2025 ambulatory Vincent Flores Facility:[facility] Start: 03-01-2025 Dr. Ebony Cerrato MD -[facility] Work Phone: Start: 03-01-2025 End: 03-04-2025 Dr. Ebony Cerrato [facility] Work Phone: Start: 03-01-2025 End: 03-04-2025 ambulatory Desyi Haagen CHEMICAL RESEARCH TECHNICIAN-C Work Phone: [facility] Start: 02-27-2025 End: 02-27-2025 ambulatory Deysi Haagen CHEMICAL RESEARCH TECHNICIAN-C Work Phone: -[facility] Start: 02-27-2025 End: 02-27-2025 Dr. Vincent Flores MD -[facility] Start: 02-27-2025 End: 02-27-2025 ambulatory Vincent Cas Flores Facility:[facility] Start: 02-21-2025 End: 02-21-2025 ambulatory Deysi Haagen CHEMICAL RESEARCH TECHNICIAN-C Work Phone: -[facility] Start: 02-21-2025 End: 02-21-2025 Dr. Vincent Flores MD -[facility] Start: 02-21-2025 End: 02-21-2025 ambulatory Vincent Cas Flores Facility:[facility] Start: 02-16-2025 End: 02-16-2025 Dr. Magdy Pang MD -Emergency Department Work Phone: Start: 02-16-2025 End: 02-16-2025 Emergency department patient visit Deysi Haagen CHEMICAL RESEARCH TECHNICIAN-C Work Phone: -Emergency Department Work Phone: Start: 02-13-2025 End: 02-13-2025 ambulatory Deysi Haagen CHEMICAL RESEARCH TECHNICIAN-C Work Phone: -Laboratory Start: 02-13-2025 End: 02-13-[address] Vincent Flores MD -Laboratory Work Phone: Start: 02-13-2025 End: 02-13-2025 Dr. Vincent Flores MD -Laboratory Work Phone: Start: 02-13-2025 End: 02-13-2025 ambulatory Vincent Cas Flores Facility:[facility] Start: 02-08-2025 End: 02-08-2025 ambulatory Deysi Haagen CHEMICAL RESEARCH TECHNICIAN-C Work Phone: -[facility] Start: 02-08-2025 End: 02-08-2025 Patient encounter procedure Pau Susan -[facility] Work Phone: Start: 02-08-2025 End: 02-08-2025 Dr. Yaniv Masters MD -[facility] Work Phone: Start: 02-05-2025 End: 02-05-[address] Juan Diego Huynh MD -[facility] Work Phone: Start: 02-05-2025 End: 02-05-2025 Dr. Juan Diego Huynh MD -[facility] Work Phone: Start: 02-05-2025 End: 02-05-2025 ambulatory Deysi Haagen CHEMICAL RESEARCH TECHNICIAN-C Work Phone: -[facility] Start: 02-05-2025 End: 02-05-2025 ambulatory Vincent Chi Mark Facility:[facility] Start: 02-01-2025 End: 02-01-2025 ambulatory Deysi Haagen CHEMICAL RESEARCH TECHNICIAN-C Work Phone: -[facility] Fl[facility] Start: 02-01-2025 End: 02-01-[address] Vincent Flores MD -[facility] Start: 02-01-2025 End: 02-01-2025 Dr. Vincent Flores MD -[facility] Start: 02-01-2025 End: 02-01-2025 ambulatory Vincent Chi Mark Facility:[facility] Start: 01-26-2025 End: 01-30-2025 Refill Carla Burdick MD Work Phone: Cardiology Comment on above: Refill Request Start: 01-23-2025 End: 01-23-2025 ambulatory Deysi Hadon CHEMICAL RESEARCH TECHNICIAN-C Work Phone: -Laboratory Start: 01-23-2025 End: 01-23-[address] Jeremy Mcgarry MD -Laboratory Work Phone: Start: 01-23-2025 End: 01-23-2025 Dr. Jeremy Mcgarry MD -Laboratory Work Phone: Start: 01-23-2025 End: 01-23-2025 ambulatory [facility] Facility:[facility] Start: 01-11-2025 Non-patient / Non-visit Dr. Luis Stovall [facility] Work Phone: Start: 01-11-2025 Dr. Dianne sapp [facility] Work Phone: Start: 01-10-2025 Non-patient / Non-visit Dr. Luis Stovall [facility] Work Phone: Start: 01-10-2025 Dr. Dianne sapp [facility] Work Phone: Start: 01-09-2025 Non-patient / Non-visit Dr. Luis Stovall [facility] Work Phone: Start: 01-09-2025 Dr. Dianne sapp [facility] Work Phone: Start: 01-08-2025 Non-patient / Non-visit Dr. Luis Stovall [facility] Work Phone: Start: 01-08-2025 Dr. Dianne sapp [facility] Work Phone: Start: 01-08-2025 ambulatory [facility] Facility :[facility] Start: 01-08-2025 Non-patient / Non-visit Dr. Jose UGARTE -[facility] Start: 01-08-2025 Dr. Yaniv Masters MD [facility] Start: 01-08-2025 ambulatory Carla Fletcher ty:[facility] Start: 01-08-2025 Non-patient / Non-visit Dr. Abundio wells MD -[facility] Start: 01-08-2025 Dr. Abundio Turcios MD -[facility] Start: 01-07-2025 End: 01-11-2025 ambulatory Radha Heller Facility:[facility] Start: 01-07-2025 End: 01-11-2025 Evaluation and management of inpatient Dr. Radha Heller MD -[facility] Care Unit Work Phone: Start: 01-07-2025 End: 01-11-2025 Dr. Dianne Stovall DO -Progressive Care Unit Work Phone: Start: 01-01-2025 [...] Start: 01-01-2025 End: 01-01-2025 ambulatory CARLA BURDICK Facility:[facility] Start: 12-26-2024 End: 12-26-2024 Orders Only Albin Gu APRN.[employer]IT GOODS MENDER Work Phone: Cardiology Comment on above: Returning Patient's Call Start: 12-20-2024 End: 02-19-2025 Follow-up encounter Deysi Collazo APRN.[employer] MENDER Work Phone: [facility] Start: 12-20-2024 End: 12-20-2024 Patient encounter procedure Lars Silva DO Work Phone: Vascular Surgery Comment on above: Superior mesenteric artery stenosis (HCC) (Primary Dx) Start: 12-20-2024 End: 12-20-2024 ambulatory LARS Kellen SILVA Facility:[facility] Start: 12-19-2024 End: 12-19-2024 Patient encounter procedure Albin Gu APRN.[employer] M[employer]ER Work Phone: Cardiology Comment on above: Chronic diastolic co ngestive heart failure (HCC) (Primary Dx); Primary hypertension; SSS (sick sinus syndrome) (HCC); Longstanding persistent atrial fibrillation (HCC) Start: 12-19-2024 End: 12-19-2024 ambulatory ALBIN GU Facility:[facility] Start: 12-13-2024 End: 12-13-2024 Telephone encounter Deysi Collazo APRN.[employer] GOODS MENDER Work Phone: [facility] Comment on above: Transition Of Care Start: 12-11-2024 End: 12-11-2024 Telephone encounter Deysi Collazo APRN.[employer] M[employer]ER Work Phone: [address] [place] [id number] Start: 12-10-2024 End: 12-12-2024 Evaluation and management of inpatient [facility] Facility:[facility] Start: 12-01-2024 End: 12-01-2024 ambulatory CARLA BURDICK Facility:[facility] Start: 11-20-2024 End: 11-20-2024 Patient encounter [...] Start: 11-20-2024 End: 11-20-2024 ambulatory CARLA BURDICK Facility:[facility] Start: 11-15-2024 End: 11-15-2024 Follow-up encounter Carla Burdick MD Work Phone: [facility] Cardiology Marcelo Start: 11-13-2024 End: 11-13-2024 ambulatory [facility] Facility:[facility] Start: 11-06-2024 End: 11-06-2024 ambulatory CARLA BURDICK Facility:[facility] Start: 11-06-2024 End: 11-06-2024 Patient encounter [...] Results Start: 11-03-2024 End: 11-03-2024 ambulatory ALBIN BRITTANIE Facility:[facility] Start: 11-03-2024 End: 11-03-2024 Patient encounter procedure Albin Gu APRN.CNP Work Phone: Cardiology Comment on above: Chronic diastolic co ngestive heart failure (HCC) (Primary Dx); Primary hypertension; SSS (sick sinus syndrome) (HCC); Longstanding persistent atrial fibrillation (HCC); Stage 3b chronic kidney disease (HCC) Start: 11-03-2024 End: 11-03-2024 ambulatory ALBIN [facility] Facility:[facility] Start: 10-31-2024 End: 12-31-2024 Follow-up encounter Shaye Domingo APRN.CNP Work Phone: [facility] Start: 10-31-2024 End: 10-31-2024 ambulatory SHAYE DOMINGO Facility:[facility] Start: 10-31-2024 End: 10-31-2024 Office outpatient visit 25 minutes Shaye Domingo APRN.CNP Work Phone: [facility] Comment on above: Acute mesenteric isc hemia [...] 10-12-2024 End: 10-12-2024 Telephone encounter Albin Gu APRN.[employer] Work Phone: Cardiology Comment on above: Patient Update Start: 07-31-2024 End: 07-31-2024 Telephone encounter Melida Koo APRN.[employer] M[employer]ER Work Phone: Cardiology Start: 07-07-2024 End: 07-07-2024 ambulatory [facility] Facility:[facility] Start: 07-07-2024 End: 07-07-2024 ambulatory [facility] Facility:[facility] Start: 04-07-2024 End: 04-07-2024 Patient encounter procedure Albin Gu APRN.[employer] M[employer] Work Phone: Cardiology Comment on above: Chronic diastolic co ngestive heart failure (HCC) (Primary Dx); Primary hypertension; SSS (sick sinus syndrome) (HCC); Longstanding persistent atrial fibrillation (HCC) Start: 04-07-2024 End: 04-07-2024 ambulatory ALBIN GU Facility:[facility] Start: 03-14-2024 End: 03-14-2024 Refill Melida Koo APRN.[employer] M[employer] Work Phone: Cardiology Start: 02-21-2024 End: 02-21-2024 Telephone encounter Melida Koo APRN.[employer] Work Phone: Cardiology Start: 02-17-2024 ambulatory Carla dempsey MD Work Phone: Cardiology Comment on above: NT Pro BNP Start: 02-15-2024 End: 02-15-2024 ambulatory [facility] Facility:[facility] Start: 02-07-2024 Telephone encounter Melida walker APRN.[employer] Work Phone: Cardiology Comment on above: Recheck Chronic diastolic co ngestive heart failure (HCC) (Primary Dx) Start: 02-04-2024 Telephone encounter Albin amaro APRN.CNP Work Phone: Cardiology Comment on above: Appointment Results Start: 02-03-2024 End: 02-03-2024 ambulatory YING TORRES Facility:[facility] Start: 01-17-2024 End: 01-17-2024 ambulatory DIANNE LE Facility:[facility] Start: 01-17-2024 End: 01-17-2024 Patient encounter [...] Office outpatient visit 15 minutes Deysi Collazo APRN.KNIT GOODS MENDER Work Phone: [facility] [place] Comment on above: URI, acute (Primary Dx) [...] Office outpatient visit 25 minutes Deysi Collazo APRN.CNP Work Phone: [facility] [place] Comment on above: Acute systolic CHF ( congestive heart failure) (HCC) (Primary Dx); Hyponatremia; Hypokalemia Start: 11-19-2023 Telephone encounter Albin amaro APRN.KNIT GOODS MENDER Work Phone: Cardiology Comment on above: Patient Question Start: 11-17-2023 Telephone encounter Gwen Valentine RN Cardiology Comment on above: 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 Utilization Review per Payer Request.) Start: 11-15-2023 Telephone encounter Nara Malone RN NOC Comment on above: Transition Of Care Start: 11-12-2023 Orders Only Ying saenz CLARITY DEVELOPER.KNIT GOODS MENDER Work Phone: Cardiology Comment on above: Stage 3 chronic kidn ey disease, unspecified whether stage 3a or 3b CKD (HCC) (Primary Dx) Initial Consult (HEA RT FAILURE [id number] ) Start: 11-08-2023 End: 11-08-2023 Emergency department patient visit Doreen LE Facility:[facility] Start: 11-08-2023 End: 11-08-2023 Patient encounter procedure Bere Boykin APRN.KNIT GOODS MENDER Work Phone: Cardiology Comment on above: Acute HFrEF (heart f ailure with reduced ejection fraction) (HCC) (Primary Dx); VHD (valvular heart disease); Nonrheumatic tricuspid valve regurgitation; Nonrheumatic mitral valve regurgitation; Persistent atrial fibrillation (HCC); Pacemaker Start: 11-04-2023 End: 11-04-2023 Patient encounter procedure Doreen Le PA-C Work Phone: [facility] [place] Comment on above: Acute systolic CHF ( [...] of both knees Start: 11-02-2023 ambulatory Doreen Dodge antony HAMLIN Work Phone: [facility] [place] Comment on above: moving forward Start: 11-02-2023 E-mail encounter fro m caregiver Doreen Claudia Rey HAMLIN Work Phone: [facility] [place] Start: 11-02-2023 Telephone encounter Doreen Le BOUBACAR Work Phone: [facility] Comment on above: Results; Orders Start: 10-31-2023 Telephone encounter oDreen Le BOUBACRA Work Phone: [facility] [place] Start: 10-19-2023 End: 10-19-2023 Patient encounter procedure Lars Silva DO Work Phone: Vascular Surgery Comment on above: Venous insufficiency (Primary Dx) Start: 10-18-2023 End: 10-18-2023 Subsequent hospital visit by physician David [facility] [place] Work Phone: Radiology Comment on above: Acute systolic CHF ( congestive heart failure) ([facility]) [I50.21] Start: 10-18-2023 End: 10-18-2023 Patient encounter procedure Doreen Le BOUBACAR Work Phone: [facility] [place] Comment on above: SSS (sick sinus synd juliana) ([facility]) (Primary Dx); Paroxysmal atrial fibrillation ([facility]); S/P placement of cardiac pacemaker; Chronic combined systolic and diastolic CHF (congestive heart failure) ([facility]); Dilated cardiomyopathy ([facility]); Ascending aorta dilatation ([facility]); Pedro aneurysm of anterior communicating artery; History of pulmonary embolism; Presence of Watchman left atrial appendage closure device; Platelet inhibition due to Plavix; Primary hypertension; Hyperlipidemia with target LDL less than 70; Heme + stool; Epigastric pain; Blood loss anemia; Acute systolic CHF (congestive heart failure) ([facility]); Vitamin D deficiency Start: 10-15-2023 Telephone encounter Carla Burdick MD Work Phone: Cardiology Comment on above: Patient Update Start: 10-14-2023 End: 10-14-2023 Patient encounter procedure Lars Silva DO Work Phone: Vascular Surgery Comment on above: Venous insufficiency (Primary Dx) Start: 10-11-2023 Follow-up encounter Yin Joseph MD Work Phone: [facility] Start: 10-11-2023 Pacemaker Remote F/U Yin Joseph MD Work Phone: [facility] Start: 07-05-2023 End: 07-05-2023 Patient encounter procedure Bijan Cole MD Work Phone: [facility] Comment on above: Influenza-like illne ss (Primary Dx) Start: 06-07-2023 ambulatory Doreen Dodge on PA-C Work Phone: [facility] [place] Comment on above: Rt. Foot Bone Fractu re Start: 06-01-2023 End: 06-01-2023 Subsequent hospital visit by physician Xr [facility] [place] Work Phone: Radiology Comment on above: Closed nondisplaced fracture of fifth metatarsal bone of right foot with routine healing, subsequent encounter [S92.354D] Start: 04-30-2023 End: 04-30-2023 Subsequent hospital visit by physician Ct [facility] (I-Stat) Work Phone: Cat Scan Comment on above: Lung nodule, solitar y [R91.1] Start: 04-12-2023 End: 04-12-2023 Subsequent hospital visit by physician Xr [facility] [place] Work Phone: Radiology Comment on above: Pain of right middle finger [M79.644] Start: 03-23-2023 Follow-up encounter Yin Joseph MD Work Phone: [facility] Start: 03-23-2023 Pacemaker Remote F/U Yin Joseph MD Work Phone: [facility] Start: 03-15-2023 Refill Doreen Dodge on PA-C Work Phone: [facility] [place] Comment on above: Refill Request Start: 01-28-2023 Telephone encounter Doreen Le PA-C Work Phone: [facility] Comment on above: Appointment Start: 01-08-2023 Telephone encounter Doreen Le PA-C Work Phone: [facility] [place] Comment on above: Orders Start: 01-07-2023 End: 01-07-2023 Patient encounter procedure Doreen eL PA-C Work Phone: [facility] [place] Comment on above: Bilateral carotid ar marcelo stenosis (Primary Dx); Atherosclerosis of [place] artery of both lower extremities with intermittent [...] Follow-up encounter Yin Joseph MD Work Phone: [facility] Start: 12-22-2022 Pacemaker Remote F/U Yin Joseph MD Work Phone: [facility] Start: 12-10-2022 ambulatory Doreen Biswas ty:[facility] Start: 10-06-2022 End: 10-06-2022 Patient encounter procedure Doreen Le PA-C Work Phone: [facility] [place] Comment on above: S/P placement of car [...] End: 10-05-2022 Subsequent hospital visit by physician [facility] Work Phone: Radiology Comment on above: 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] Start: 09-29-2022 Refcharly Dodge on Green Is Good Work Phone: Hematology/Oncology Comment on above: Refill [...] Follow-up encounter Yin Joseph MD Work Phone: [facility] Start: 09-21-2022 Pacemaker Remote F/U Yin Joseph MD Work Phone: [facility] Start: 08-30-2022 Refcharly Dodge on PA-C Work Phone: [facility] [place] Comment on above: Refill Request Start: 07-22-2022 Telephone encounter Research C oordinator Work Phone: Cardiology Comment on above: Research (IRB [id number]) Start: 07-08-2022 Telephone encounter Doreen Claudia Le PA-C Work Phone: [facility] [place] Comment on above: Information Start: 07-07-2022 End: 07-07-2022 Patient encounter procedure Doreen Claudia Le PA-C Work Phone: [facility] [place] Comment on above: H/O rheumatic heart disease (Primary Dx); Aortic prosthetic valve regurgitation, subsequent encounter; SSS (sick sinus syndrome) ([facility]); Atrial fibrillation, unspecified type ([facility]); Presence of Watchman left atrial appendage closure device; Chronic combined systolic and diastolic CHF (congestive heart failure) ([facility]); S/P placement of cardiac pacemaker; Dilated cardiomyopathy ([facility]); Ascending aorta dilatation ([facility]); History of pulmonary embolism; Platelet inhibition due to Plavix; Primary hypertension; Hyperlipidemia with target LDL less than 70; Pedro aneurysm of anterior communicating artery; Stage 3b chronic kidney disease ([facility]); Type 2 diabetes mellitus with diabetic peripheral angiopathy without gangrene, without long-term current use of insulin ([facility]); Renal mass, right; Anemia, blood loss; Intracranial aneurysm; Spondylolisthesis at L4-L5 level; Nonruptured cerebral aneurysm; Paroxysmal atrial fibrillation ([facility]); Peripheral artery disease ([facility]) Start: 06-23-2022 Follow-up encounter Yin Joseph MD Work Phone: [facility] Start: 06-23-2022 Pacemaker Remote F/U Yin Joseph MD Work Phone: [facility] Start: 05-23-2022 Refill Sonny Lund [...] procedure Sonny Lund MD Work Phone: [facility] Start: 04-28-2022 End: 04-28-2022 ambulatory Treatment Rm 7 [facility] Work Phone: Hematology/Oncology Comment on above: Iron deficiency anem ia secondary to inadequate dietary iron intake (Primary Dx); Iron malabsorption Start: 04-22-2022 Refill Carla dempsey MD Work Phone: Cardiology Comment on above: Refill Request Start: 04-22-2022 End: 04-22-2022 ambulatory Treatment Rm 7 [facility] Work Phone: Hematology/Oncology Comment on above: Iron deficiency anem ia secondary to inadequate dietary iron intake (Primary Dx); Iron malabsorption Start: 04-20-2022 End: 04-20-2022 ambulatory Treatment Rm 9 [facility] Work Phone: Hematology/Oncology Comment on above: Iron deficiency anem ia secondary to inadequate dietary iron intake (Primary Dx); Iron malabsorption Start: 04-17-2022 End: 04-17-2022 ambulatory Treatment Rm 9 [facility] Work Phone: Hematology/Oncology Comment on above: Iron deficiency anem ia secondary to inadequate dietary iron intake (Primary Dx); Iron malabsorption Start: 04-09-2022 Telephone encounter Doreen Le PA-C Work Phone: [facility] [place] Comment on above: Orders Start: 04-09-2022 End: [...] procedure Doreen Claudia Le PA-C Work Phone: [facility] [place] Comment on above: Hospital discharge f [...] encounter Doreen Claudia Le PA-C Work Phone: [facility] [place] Comment on above: Hospital Follow Up; [...] Follow-up encounter Yin Joseph MD Work Phone: [facility] Start: 03-24-2022 Pacemaker Remote F/U Yin Joseph MD Work Phone: [facility] Start: 03-23-2022 Telephone encounter Brianna Betancourt Cardiology Comment on above: 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) Start: 03-21-2022 Telephone encounter Juan Diego Carroll MD Work Phone: [facility] Comment on above: Appointment Start: 03-20-2022 Admission to establishment Sheridan manning RN [facility] Comment on above: Transition Of Care ( Tcm readmission) Start: 03-20-2022 ambulatory Sheridan Cervantes RN [facility] Start: 03-19-2022 End: 03-19-2022 Patient encounter procedure Doreen Le PA-C Work Phone: [facility] [place] Comment on above: 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); Aortic prosthetic valve regurgitation, subsequent encounter; H/O rheumatic heart disease; Atrial fibrillation, unspecified type (HCC); Presence of Watchman left atrial appendage closure device; Anemia, blood loss; Primary hypertension Start: 03-05-2022 ambulatory Sheridan Cervantes RN [facility] Comment on above: ABDIEL -; Watchmen Start: 03-05-2022 Follow-up encounter Sheridan Cervantes RN [facility] Comment on above: Transition Of Care ( Tcm follow up) Start: 03-03-2022 Follow-up encounter Lili Fay MD Work Phone: [facility] Start: 03-03-2022 End: 03-03-2022 Patient encounter procedure Lili Fay MD Work Phone: [facility] Comment on above: Longstanding persist ent atrial fibrillation (HCC) (Primary Dx); Presence of Watchman left atrial appendage closure device Paroxysmal atrial fi brillation (HCC); Presence of Watchman left atrial appendage closure device Start: 03-02-2022 Telephone encounter Saima England RN C ardiology Comment on above: Reminder Call (Trans esophageal Echo 03/03/22) Start: 02-25-2022 Patient Outreach Harika Tomas RN F [facility] [place] Comment on above: Transition Of Care ( [facility] D/C 02/24/2023 ) Start: 02-20-2022 End: 02-20-2022 Patient encounter procedure Doreen Le PA-C Work Phone: [facility] [place] Comment on above: Rectal bleeding (Nohemy stacie Dx); Anemia, blood loss; Diarrhea, unspecified type Start: 02-12-2022 Telephone encounter Chai Encinas MD Work Phone: General Surgery Comment on above: Procedure Follow Up (EGD completed on 01/02/2022) Start: 02-09-2022 Orders Only Candi Juarez nd CLARITY DEVELOPER.KNIT GOODS MENDER Work Phone: Cardiology Comment on above: Paroxysmal atrial fi brillation (HCC) (Primary Dx); Presence of Watchman left atrial appendage closure device Start: 01-21-2022 Orders Only Candi Juarez nd CLARITY DEVELOPER.KNIT GOODS MENDER Work Phone: Cardiology Comment on above: Paroxysmal atrial fi brillation (HCC) (Primary Dx) Patient Question (OR YUSUF FOR ABDIEL AND ECG) Start: 01-19-2022 Refill Emilia Domínguez i, MD Work Phone: Cardiology Comment on above: Refill Request Start: 01-16-2022 End: 01-16-2022 Patient encounter procedure Doreen Taylor Rey HAMLIN Work Phone: [facility] [place] Comment on above: Atrial fibrillation, unspecified type (HCC) (Primary Dx); Presence of Watchman left atrial appendage closure device; Herpes zoster without complication Start: 01-09-2022 ambulatory Chandler villalobos MD Work Phone: Cardiology Comment on above: Patient Education (E PS-Watchman) Start: 01-09-2022 Follow-up encounter Randy Torrez MD Work Phone: [facility] Start: 01-09-2022 End: 01-09-2022 Patient encounter procedure Randy Torrez MD Work Phone: [facility] Comment on above: Atrial fibrillation, unspecified type (HCC) (Primary Dx); Gastrointestinal hemorrhage, unspecified gastrointestinal hemorrhage type; Anemia due to chronic blood loss; Other fatigue; SOB (shortness of breath) Start: 01-02-2022 End: 01-02-2022 Subsequent hospital visit by physician Chai Encinas MD Work Phone: [facility] Comment on above: Acute blood loss [...] Start: 12-30-2021 End: 12-30-2021 [facility] Start: 12-29-2021 Telephone encounter Doreen Claudia Le PA-C Work Phone: [facility] [place] Comment on above: Orders Start: 12-27-2021 ambulatory Doreen Claudia Dodge on PAThe BauhubC Work Phone: [facility] [place] Comment on above: Fatigue Start: 12-26-2021 ambulatory Doreen Claudia Dodge on PA-C Work Phone: [facility] [place] Comment on above: Anemia - hemoglobin Start: 12-25-2021 Telephone encounter Chandler ortiz MD Work Phone: Cardiology Comment on above: Patient Question (ME DICATION DECREASE) Start: 12-19-2021 Telephone encounter oDreen Le PA-C Work Phone: [facility] [place] Comment on above: Rectal Problem Start: 12-15-2021 End: 12-15-2021 Subsequent hospital visit by physician Xr [facility] [place] Work Phone: Radiology Comment on above: Ischial bursitis of left side [M70.72] Start: 12-15-2021 End: 12-15-2021 Patient encounter procedure Doreen Claudia Le PA-C Work Phone: [facility] [place] Comment on above: Renal mass, [...] Follow-up encounter Yin Joseph MD Work Phone: [facility] Start: 12-11-2021 Pacemaker Remote F/U Yin Joseph MD Work Phone: [facility] Start: 12-04-2021 Refill Chandler villalobos MD Work Phone: Cardiology Start: 12-03-2021 Telephone encounter Chandler ortiz MD Work Phone: Cardiology Comment on above: Patient Question (ME DICATION QUESTION - XARELTO) Start: 11-27-2021 Orders Only Na Ramirez CLARITY DEVELOPER.KNIT GOODS MENDER Work Phone: Vascular Surgery Comment on above: PAD (peripheral jennifer ry disease) ([facility]) (Primary Dx); PVD (peripheral vascular disease) ([facility]) Start: 11-26-2021 End: 11-26-2021 Office outpatient visit 25 minutes Na Ramirez CLARITY DEVELOPER.KNIT GOODS MENDER Work Phone: Vascular Surgery Comment on above: PAD (peripheral jennifer ry disease) ([facility]) (Primary Dx); Anemia due to chronic illness Start: 10-22-2021 Refill Yin Joseph MD Work Phone: Vascular Surgery Comment on above: Refill Request Start: 09-24-2021 Follow-up encounter Yin Joseph MD Work Phone: [facility] Start: 09-24-2021 Pacemaker Remote F/U Yin Joseph MD Work Phone: [facility] Start: 09-24-2021 Telephone encounter Chai Encinas MD Work Phone: General Surgery Comment on above: Appointment Cancelle d Start: 09-23-2021 Telephone encounter Chandler ortiz MD Work Phone: Cardiology Comment on above: Appointment Reschedu led (Due to change in physician's schedule) Start: 02-14-2021 End: 02-15-2021 ambulatory PROVIDER NOT IN SYSTEM [facility] Start: 01-23-2019 End: 01-23-2019 Refill Lizeth Mabry [facility] Cardiology Start: 01-19-2019 End: 01-19-2019 Office outpatient visit 15 minutes Mars Chung Work Phone: [facility] Cardiology Comment on above: Persistent atrial fi brillation (Primary Dx); nursing home current use of antiarrhythmic medical therapy; Moderate mitral regurgitation; Status post aortic valve replacement with tissue valve Start: 01-08-2014 End: 09-12-2021 Patient encounter status CARMELINA Le PA-C Work Phone: [facility] Procedures Date Procedure Procedure Detail Performing Clinician Start: 05-02-2025 Mean corpuscular hemoglobin concentration determination Deysi Collazo CHEMICAL RESEARCH TECHNICIAN-C Work Phone: Start: 05-02-2025 Neutrophil count Deysi Collazo CHEMICAL RESEARCH TECHNICIAN-C Work Phone: Start: 05-02-2025 Nucleated red blood cell count procedure Deysi Haagen CHEMICAL RESEARCH TECHNICIAN-C Work Phone: Start: 05-02-2025 Platelet mean volume determination Gilmer Collazo CHEMICAL RESEARCH TECHNICIAN-C Work Phone: Start: 05-02-2025 Vitamin D, 25-hydroxy measurement Gopi Collazo CHEMICAL RESEARCH TECHNICIAN-C Work Phone: Start: 04-24-2025 Immature reticulocyte fraction Deysi hernandez CHEMICAL RESEARCH TECHNICIAN-C Work Phone: Start: 04-24-2025 Mean corpuscular hemoglobin concentration determination Deyis Collazo CHEMICAL RESEARCH TECHNICIAN-C Work Phone: Start: 04-24-2025 Neutrophil count Deysi Collazo CHEMICAL RESEARCH TECHNICIAN-C Work Phone: Start: 04-24-2025 Nucleated red blood cell count procedure Deysi Collazo CHEMICAL RESEARCH TECHNICIAN-C Work Phone: Start: 04-24-2025 Platelet mean volume determination Gilmer Collazo CHEMICAL RESEARCH TECHNICIAN-C Work Phone: Start: 04-24-2025 Total iron binding capacity measurement Deysi Collazo CHEMICAL RESEARCH TECHNICIAN-C Work Phone: Start: 04-02-2025 Bacterial nucleic acid assay Deysi Nickerson gen CHEMICAL RESEARCH TECHNICIAN-C Work Phone: Start: 04-02-2025 Anaerobic microbial culture Deysi Matthew en CHEMICAL RESEARCH TECHNICIAN-C Work Phone: Start: 04-02-2025 Gram stain microscopy Deysi Collazo CHEMICAL RESEARCH TECHNICIAN-C Work Phone: Start: 04-02-2025 End: 04-02-2025 Microbial culture, routine Deysi Renteria n CHEMICAL RESEARCH TECHNICIAN-C Work Phone: Start: 03-13-2025 Blood count smear mcrscp w/mnl difrntl wbc count Deysi Collazo CHEMICAL RESEARCH TECHNICIAN-C Work Phone: Start: 03-13-2025 Immature reticulocyte fraction Deysi hernandez CHEMICAL RESEARCH TECHNICIAN-C Work Phone: Start: 03-13-2025 Mean corpuscular hemoglobin concentration determination Deysi Collazo CHEMICAL RESEARCH TECHNICIAN-C Work Phone: Start: 03-13-2025 Neutrophil count Deysi Collazo CHEMICAL RESEARCH TECHNICIAN-C Work Phone: Start: 03-13-2025 Nucleated red blood cell count procedure Deysi Collazo CHEMICAL RESEARCH TECHNICIAN-C Work Phone: Start: 03-13-2025 Platelet mean volume determination Gilmer Collazo CHEMICAL RESEARCH TECHNICIAN-C Work Phone: Start: 03-13-2025 Total iron binding capacity measurement Deysi Collazo CHEMICAL RESEARCH TECHNICIAN-C Work Phone: Start: 03-09-2025 Blood count smear mcrscp w/mnl difrntl wbc count Deysi Collazo CHEMICAL RESEARCH TECHNICIAN-C Work Phone: Start: 03-09-2025 Mean corpuscular hemoglobin concentration determination Deysi Collazo CHEMICAL RESEARCH TECHNICIAN-C Work Phone: Start: 03-09-2025 Neutrophil count Deysi Collazo CHEMICAL RESEARCH TECHNICIAN-C Work Phone: Start: 03-09-2025 Nucleated red blood cell count procedure Deysi Collazo CHEMICAL RESEARCH TECHNICIAN-C Work Phone: Start: 03-09-2025 Platelet mean volume determination Gilmer Collazo CHEMICAL RESEARCH TECHNICIAN-C Work Phone: Start: 03-09-2025 Reactive lymphocyte count Deysi Collazo CHEMICAL RESEARCH TECHNICIAN-C Work Phone: Start: 02-27-2025 Urine culture Deysi Collazo CHEMICAL RESEARCH TECHNICIAN-C Work Phone: Start: 02-27-2025 Blood count smear mcrscp w/mnl difrntl wbc count Deysi Collazo CHEMICAL RESEARCH TECHNICIAN-C Work Phone: Start: 02-27-2025 Mean corpuscular hemoglobin concentration determination Deyis Collazo CHEMICAL RESEARCH TECHNICIAN-C Work Phone: Start: 02-27-2025 Neutrophil count Deysi Collazo CHEMICAL RESEARCH TECHNICIAN-C Work Phone: Start: 02-27-2025 Nucleated red blood cell count procedure Deysi Collazo CHEMICAL RESEARCH TECHNICIAN-C Work Phone: Start: 02-27-2025 Platelet mean volume determination Gilmer Collazo CHEMICAL RESEARCH TECHNICIAN-C Work Phone: Start: 02-27-2025 Urine microscopy: red cells Deysi Haag en CHEMICAL RESEARCH TECHNICIAN-C Work Phone: Start: 02-27-2025 Urnls dip stick/tablet reagent auto microscopy Deyis Collazo CHEMICAL RESEARCH TECHNICIAN-C Work Phone: Start: 02-21-2025 Blood count smear mcrscp w/mnl difrntl wbc count Deysi Collazo CHEMICAL RESEARCH TECHNICIAN-C Work Phone: Start: 02-21-2025 Mean corpuscular hemoglobin concentration determination Deysi Collazo CHEMICAL RESEARCH TECHNICIAN-C Work Phone: Start: 02-21-2025 Neutrophil count Deysi Collazo CHEMICAL RESEARCH TECHNICIAN-C Work Phone: Start: 02-21-2025 Nucleated red blood cell count procedure Deysi Collazo CHEMICAL RESEARCH TECHNICIAN-C Work Phone: Start: 02-21-2025 Platelet mean volume determination Gilmer Collazo CHEMICAL RESEARCH TECHNICIAN-C Work Phone: Start: 02-16-2025 Blood count smear mcrscp w/mnl difrntl wbc count Deysi Collazo CHEMICAL RESEARCH TECHNICIAN-C Work Phone: Start: 02-16-2025 Estimated creatinine clearance Deysi hernandez CHEMICAL RESEARCH TECHNICIAN-C Work Phone: Start: 02-16-2025 Mean corpuscular hemoglobin concentration determination Deysi Collazo CHEMICAL RESEARCH TECHNICIAN-C Work Phone: Start: 02-16-2025 Neutrophil count Deysi Collazo CHEMICAL RESEARCH TECHNICIAN-C Work Phone: Start: 02-16-2025 Nucleated red blood cell count procedure Deysi Collazo CHEMICAL RESEARCH TECHNICIAN-C Work Phone: Start: 02-16-2025 Platelet mean volume determination Gilmer Collazo CHEMICAL RESEARCH TECHNICIAN-C Work Phone: Start: 02-16-2025 X-ray of chest, PA and lateral views Deysi Collazo CHEMICAL RESEARCH TECHNICIAN-C Work Phone: Start: 02-13-2025 Osmolality measurement, serum Deysi ochoa CHEMICAL RESEARCH TECHNICIAN-C Work Phone: Start: 02-13-2025 Blood count smear mcrscp w/mnl difrntl wbc count Deysi Collazo CHEMICAL RESEARCH TECHNICIAN-C Work Phone: Start: 02-13-2025 Mean corpuscular hemoglobin concentration determination Deysi Collazo CHEMICAL RESEARCH TECHNICIAN-C Work Phone: Start: 02-13-2025 Neutrophil count Deysi Collazo CHEMICAL RESEARCH TECHNICIAN-C Work Phone: Start: 02-13-2025 Nucleated red blood cell count procedure Deysi Collazo CHEMICAL RESEARCH TECHNICIAN-C Work Phone: Start: 02-13-2025 Platelet mean volume determination Gilmer Collazo CHEMICAL RESEARCH TECHNICIAN-C Work Phone: Start: 02-01-2025 Blood count smear mcrscp w/mnl difrntl wbc count Deysi Collazo CHEMICAL RESEARCH TECHNICIAN-C Work Phone: Start: 02-01-2025 Mean corpuscular hemoglobin concentration determination Deysi Collazo NP-C Work Phone: Start: 02-01-2025 Neutrophil count Deysi Collazo CHEMICAL RESEARCH TECHNICIAN-C Work Phone: Start: 02-01-2025 Nucleated red blood cell count procedure Deysi GARAY Work Phone: Start: 02-01-2025 Platelet mean volume determination Gilmer Collazo CHEMICAL RESEARCH TECHNICIAN-C Work Phone: Start: 02-01-2025 Vitamin D, 25-hydroxy measurement Gopi Collazo NP-[place] Work Phone: Comment on above: Vitamin D StatusDeficiency: <20 ng/mL (5 0nmol/L)Insufficiency: 20-30 ng/mL (50-75 nmol/L)Sufficiency: 30-100 ng/mL (75-250 nmol/L)Toxicity: >100 ng/mL (>250 nmol/L) Start: 01-23-2025 Blood count smear mcrscp w/mnl difrntl wbc count Deysi Collazo NP-[place] Work Phone: Start: 01-23-2025 Hepatitis C antibody measurement Deysi Collazo NP-[place] Work Phone: Comment on above: Reactive: Presumptive evidence of antibo dies to HCV. Follow CDC recommendations for supplemental testing.Non-Reactive: Antibodies to HCV were not detected; does not exclude the possibility of exposure to HCVReactive Results are presumptive evidence of antibodies to HCV. Follow CDC recommendations for supplemental testing.Order confirmation testing: HCV Quant by PCR testing - HCVPCR #[id number] Non Reactive: < 0.8 Equivocal: >/= 0.8 to < 1.0 Reactive: >/= 1.0The CDC requires that a reactive/equivocal HCV antibody result be sent out for confirmation. HCV Quant by PCR testing. Start: 01-23-2025 Mean corpuscular hemoglobin concentration determination Desyi Collazo NP-C Work Phone: Start: 01-23-2025 Neutrophil count Deysi GARAY Work Phone: Start: 01-23-2025 Nucleated red blood cell count procedure Deysi Collazo CHEMICAL RESEARCH TECHNICIAN-C Work Phone: Start: 01-23-2025 Platelet mean volume determination Gilmer Collazo CHEMICAL RESEARCH TECHNICIAN-C Work Phone: Start: 01-23-2025 Serum inorganic phosphate measurement Deysi Collazo CHEMICAL RESEARCH TECHNICIAN-C Work Phone: Start: 01-23-2025 Total cholesterol:HDL ratio measurement Deysi Collazo CHEMICAL RESEARCH TECHNICIAN-C Work Phone: Start: 01-23-2025 Triglycerides measurement Deysi Collazo CHEMICAL RESEARCH TECHNICIAN-C Work Phone: Start: 01-23-2025 Vitamin D, 25-hydroxy measurement Gopi Collazo CHEMICAL RESEARCH TECHNICIAN-C Work Phone: Comment on above: Vitamin D StatusDeficiency: <20 ng/mL (5 0nmol/L)Insufficiency: 20-30 ng/mL (50-75 nmol/L)Sufficiency: 30-100 ng/mL (75-250 nmol/L)Toxicity: >100 ng/mL (>250 nmol/L) Start: 01-11-2025 Estimated creatinine clearance Deysi hernandez CHEMICAL RESEARCH TECHNICIAN-C Work Phone: Start: 01-08-2025 Blood count smear mcrscp w/mnl difrntl wbc count Deysi Collazo CHEMICAL RESEARCH TECHNICIAN-C Work Phone: Start: 01-08-2025 Mean corpuscular hemoglobin concentration determination Deysi Collazo CHEMICAL RESEARCH TECHNICIAN-C Work Phone: Start: 01-08-2025 Neutrophil count Deysi Collazo CHEMICAL RESEARCH TECHNICIAN-C Work Phone: Start: 01-08-2025 Nucleated red blood cell count procedure Deysi Collazo CHEMICAL RESEARCH TECHNICIAN-C Work Phone: Start: 01-08-2025 Platelet mean volume determination Gilmer Collazo CHEMICAL RESEARCH TECHNICIAN-C Work Phone: Start: 01-08-2025 Total cholesterol:HDL ratio measurement Deysi Collazo CHEMICAL RESEARCH TECHNICIAN-C Work Phone: Start: 01-08-2025 Triglycerides measurement Deysi Collazo CHEMICAL RESEARCH TECHNICIAN-C Work Phone: Start: 01-07-2025 CT angiography of head and neck Deysi Collazo CHEMICAL RESEARCH TECHNICIAN-C Work Phone: Start: 01-07-2025 CT of head without contrast Deysi edouard CHEMICAL RESEARCH TECHNICIAN-C Work Phone: Start: 01-07-2025 X-ray of chest, PA and lateral views Deysi Collazo CHEMICAL RESEARCH TECHNICIAN-C Work Phone: Start: 01-07-2025 Estimated creatinine clearance Deysi hernandez CHEMICAL RESEARCH TECHNICIAN-C Work Phone: Start: 11-08-2023 Ecg routine ecg w/least 12 lds i&r only [facility] Start: 10-18-2023 Radiologic exam chest 2 views Doreen Le PA-C Work Phone: Start: 10-18-2023 Ecg routine ecg w/least 12 lds i&r only [facility] Start: 10-11-2023 PACEMAKER REMOTE CHECK Yin Joseph MD Work Phone: Start: 07-05-2023 INFLUENZA A&B MOLECULAR (POC) Bijan Wei MD Work Phone: Start: 06-01-2023 Radex foot complete minimum 3 views Doreen Le PA-C Work Phone: Start: 04-30-2023 Ct thorax w/o contrast material Doreen KING-C Work Phone: Start: 04-12-2023 Radex fingr minimum 2 views Doreen ramirez PA-C Work Phone: Start: 03-23-2023 PACEMAKER [...] 2d w/wo m-mode rec f-up/lmtd Candi Beauchamp CLARITY DEVELOPER.KNIT GOODS MENDER Work Phone: Start: 01-09-2022 PACEMAKER CLINIC CHECK [...] DTaP,Tdap,Td Vaccine (3 - Td or Tdap) [facility] Start: 12-12-2025 Complete blood count Hemoglobin/Hematocrit [facility] Start: 12-12-2025 Creatinine measurement Serum Creatinine [facility] Start: 12-11-2025 Complete blood count Hemoglobin/Hematocrit [facility] Start: 12-11-2025 Creatinine measurement Serum Creatinine [facility] Start: 12-11-2025 Hepatitis B screening Urine Albumin:Creatinine Ratio [facility] Start: 11-20-2025 Creatinine measurement Serum Creatinine [facility] Start: 11-13-2025 Creatinine measurement Serum Creatinine [facility] Start: 11-03-2025 BP Controlled (<130/80) BP Controlled (<130/80) [facility] in Start: 11-03-2025 Creatinine measurement Serum Creatinine [facility] Start: 10-31-2025 Annual PCP Team Chronic Disease Visit Annual PCP Team Chronic Disease Visit [facility] Start: 10-31-2025 Complete blood count Hemoglobin/Hematocrit [facility] Start: 10-31-2025 Creatinine measurement Serum Creatinine [facility] Start: 10-10-2025 Complete blood count Hemoglobin/Hematocrit [facility] Start: 10-03-2025 Hepatitis B screening Urine Albumin:Creatinine Ratio [facility] Start: 10-02-2025 Hepatitis B surface antibody level LDL Cholesterol [facility] Start: 07-23-2025 Reticulocyte count [facility] Start: 07-07-2025 Annual PCP Team Chronic Disease Visit Annual PCP Team Chronic Disease Visit [facility] Start: 07-07-2025 Anxiety Screening Anxiety Screening [facility] Comment on above: Postponed from 1963 (Declined at t his time) Start: 07-07-2025 Covid-19 Vaccine () Covid-19 Vaccine () [facility] Comment on above: Postponed from 03/05/2024 (Declined at t his time) Start: 07-07-2025 Creatinine measurement Serum Creatinine [facility] Start: 07-07-2025 Hepatitis B screening Urine Albumin:Creatinine Ratio [facility] Start: 05-10-2025 -[facility] Work Phone: Start: 05-07-2025 End: 05-07-2025 -[facility] Work Phone: Start: 05-03-2025 -[facility] Work Phone: Start: 05-03-2025 End: 05-04-2025 -[facility] Work Phone: Start: 05-02-2025 End: 05-02-2025 -Laboratory Phy Office 3rd Flr Start: 04-26-2025 Glaucoma screening Dilated Retinal Exam [facility] Start: 04-22-2025 Hemoglobin A1c measurement HbA1C [facility] Start: 04-03-2025 Hemoglobin A1c measurement HbA1C [facility] Start: 04-02-2025 Source specific culture [facility] Start: 04-02-2025 Anaerobic microbial culture [facility] Start: 04-02-2025 Gram stain microscopy [facility] Start: 04-02-2025 Microbial culture, routine [facility] Start: 04-02-2025 -Laboratory Phy Office 3rd Flr Start: 03-29-2025 -[facility] Work Phone: Start: 03-27-2025 -[facility] Start: 03-26-2025 End: 03-26-2025 Patient encounter procedure 03/26/2025 10:00 AM EDT Office Visit Cardiology [address] [place] [id number] Carla Burdick MD [address] [facility] [address] [place] [address] 4 month follow up - ECHO prior Cardiology Comment on above: 4 month follow up - ECHO prior Start: 03-22-2025 [facility] Start: 03-19-2025 End: 03-19-2025 Patient encounter procedure 03/19/2025 1:50 PM EDT Office Visit Cardiology [address] [place] [id number] ECHO Cardiology Comment on above: ECHO Start: 03-13-2025 CBC W Auto Differential panel - Blood [facility] Start: 03-13-2025 Comprehensive metabolic 2000 panel - Serum or Plasma [facility] Start: 03-13-2025 Erythropoietin (EPO) [Units/volume] in Serum or Plasma [facility] Start: 03-13-2025 Ferritin [Mass/volume] in Serum or Plasma [facility] Start: 03-13-2025 Iron and Iron binding capacity panel - Serum or Plasma [facility] Start: 03-13-2025 Reticulocyte count [facility] Start: 03-13-2025 Vitamin B12 measurement [facility] Start: 03-13-2025 [facility] Start: 03-05-2025 Influenza vaccination Influenza Vaccine (#1) [facility] Start: 02-27-2025 Urine culture [facility] Start: 02-27-2025 [facility] Start: 02-26-2025 End: 02-26-2025 Patient encounter procedure 02/26/2025 2:20 PM EDT Office Visit Cardiology [address] [place] [address] Carla Burdick MD [address] [address] f/u Cardiology Comment on above: f/u Start: 02-16-2025 End: 02-16-2025 [facility] Start: 02-16-2025 [facility] Start: 02-13-2025 Measurement of C-reactive protein using high sensitivity technique [facility] Start: 02-05-2025 End: 02-05-2025 Evaluation of diagnostic study results [facility] Start: 02-02-2025 Creatinine measurement Serum Creatinine [facility] Start: 02-02-2025 Hepatitis B surface antibody level LDL Cholesterol [facility] Start: 01-23-2025 End: 01-23-2025 Patient encounter procedure 01/23/2025 10:00 AM EDT Office Visit Cardiology [address], [place] [id number] Albin Gu APRN.[employer]IT [employer] MENDER [address] [place] [address] CHF FOLLOW UP Cardiology Comment on above: CHF FOLLOW UP Start: 01-11-2025 Patient discharge [facility] Start: 01-10-2025 End: 01-10-2025 Patient encounter procedure [facility] Comment on above: 6 month follow up (SHABBIR from [facility]) 6 month follow up Start: 01-08-2025 Referral to tin whiz machine operator [facility] Start: 01-08-2025 End: 01-08-2025 [facility] Start: 01-08-2025 Thyroid stimulating hormone measurement [facility] Start: 01-08-2025 Vital signs measurements [facility] Start: 01-08-2025 Cardiac monitoring [facility] Start: 01-08-2025 Catheterization of vein [facility] Start: 01-08-2025 Consultation [facility] Start: 01-08-2025 Elevation of head of bed [facility] Start: 01-08-2025 Exercises [facility] Start: 01-08-2025 Notification of physician [facility] Start: 01-08-2025 Patient referral to dietitian [facility] Start: 01-08-2025 Referral for physical therapy [facility] Start: 01-08-2025 Referral to occupational therapist [facility] Start: 01-08-2025 Referral to service [facility] Start: 01-08-2025 Speech therapy assessment [facility] Start: 01-08-2025 Tobacco use cessation education [facility] Start: 01-07-2025 Following clinical pathway protocol [facility] Start: 01-07-2025 Assessment of risk of venous thromboembolism [facility] Start: 01-07-2025 Care regimes management [facility] Start: 01-07-2025 Elevation of affected extremity [facility] Start: 01-07-2025 Inhalation therapy procedure [facility] Start: 01-07-2025 Insertion of catheter into peripheral vein [facility] Start: 01-07-2025 Measuring intake and output [facility] Start: 01-07-2025 Notification of physician [facility] Start: 01-07-2025 Patient education [facility] Start: 01-07-2025 Providing care according to standard [facility] Start: 01-07-2025 Provision of activity privileges [facility] Start: 01-07-2025 End: 01-07-2025 [facility] Start: 01-07-2025 Verification routine [facility] Start: 01-07-2025 Admission procedure [facility] Start: 01-07-2025 End: 01-07-2025 [facility] Start: 01-04-2025 Hemoglobin A1c measurement HbA1C [facility] Start: 01-01-2025 End: 04-02-2025 Basic metabolic 2000 panel - Serum or Plasma BASIC METABOLIC PANEL Lab Routine Chronic diastolic (congestive) heart failure (HCC) Expected: 01/01/2025, Expires: 04/02/2025 [facility] Comment on above: Expected: 01/01/2025, Expires: Start: 01-01-2025 End: 04-02-2025 Natriuretic peptide.B prohormone N-Terminal [Mass/volume] in Serum or Plasma NT PRO BNP Lab Routine Chronic diastolic (congestive) heart failure (HCC) Expected: 01/01/2025, Expires: 04/02/2025 [facility] Comment on above: Expected: 01/01/2025, Expires: Start: 01-01-2025 End: 01-01-2025 Patient encounter procedure 01/01/2025 11:00 AM EDT Office Visit Cardiology [address] [place] [address] Carla Burdick MD [address] [address] 1 month follow up Cardiology Comment on above: 1 month follow up Start: 12-21-2024 End: 12-21-2024 Patient encounter procedure 12/21/2024 9:00 AM EDT Office Visit Cardiology [address] [place] [address] Albin Gu APRN.[employer] [address] [place] [address] CHF Cardiology Comment on above: CHF Start: 12-20-2024 End: 12-20-2024 Patient encounter procedure Vascular Surgery Comment on above: MESENTERIC AND HOSPITAL FOLLOW UP Start: 12-19-2024 End: 03-20-2025 Basic metabolic 2000 panel - Serum or Plasma BASIC METABOLIC PANEL Lab Routine Chronic diastolic congestive heart failure (HCC) Expected: 12/19/2024, Expires: 03/20/2025 [facility] Work Phone: Comment on above: Expected: 12/19/2024, Expires: Start: 12-18-2024 End: 12-18-2024 Patient encounter procedure 12/18/2024 11:00 AM EDT Office Visit Cardiology [address] [place] [address] Albin Gu APRN.[employer]ER [address] [place] [address] CHF Cardiology Comment on above: CHF Start: 12-11-2024 End: 12-11-2024 Patient encounter procedure 12/11/2024 2:30 PM EDT Office Visit Cardiology [address] [place], [place] [id number] Allison Toledo APRN.[employer]ER [address] [place] [address] follow u Cardiology Comment on above: follow u Start: 12-06-2024 Annual PCP Team Chronic Disease Visit Annual PCP Team Chronic Disease Visit [facility] Start: 12-06-2024 BP Controlled (<130/80) BP Controlled (<130/80) [facility] in Start: 12-04-2024 End: 12-04-2024 Patient encounter procedure 12/04/2024 2:00 PM EDT Office Visit Cardiology [address] [place] [address] Carla Burdick MD [address] [facility] [address] [place] [address] 1 month follow up Cardiology Comment on above: 1 month follow up Start: 12-01-2024 Creatinine measurement Serum Creatinine [facility] Start: 11-21-2024 Annual PCP Team Chronic Disease Visit Annual PCP Team Chronic Disease Visit [facility] Start: 11-21-2024 BP Controlled (<130/80) BP Controlled (<130/80) [facility] in Start: 11-21-2024 End: 11-21-2024 Patient encounter procedure 11/21/2024 10:00 AM EDT Office Visit Cardiology [address] [place] [address] Albin Gu APRN.[employer]ER [address] [place] [address] CHF Cardiology Comment on above: CHF Start: 11-20-2024 End: 11-20-2024 Patient encounter procedure 11/20/2024 8:00 AM EDT Office Visit Cardiology [address] [place] [address] Carla Burdick MD [address] [facility] [address] [place], [place] [id number] follow up with labs per Dr Burdick's phone note Cardiology Comment on above: follow up with labs per Dr Burdick's da ne note Start: 11-18-2024 Complete blood count Hemoglobin/Hematocrit [facility] Start: 11-18-2024 Creatinine measurement Serum Creatinine [facility] Start: 11-15-2024 End: 02-14-2025 Basic metabolic 2000 panel - Serum or Plasma BASIC METABOLIC PANEL Lab Routine Dyspnea on exertion Chronic diastolic congestive heart failure (HCC) Expected: 11/15/2024, Expires: 02/14/2025 [facility] Work Phone: Comment on above: Expected: 11/15/2024, Expires: Start: 11-15-2024 End: 02-14-2025 Natriuretic peptide.B prohormone N-Terminal [Mass/volume] in Serum or Plasma NT PRO BNP Lab Routine Dyspnea on exertion Chronic diastolic congestive heart failure (HCC) Expected: 11/15/2024, Expires: 02/14/2025 [facility] Comment on above: Expected: 11/15/2024, Expires: Start: 11-15-2024 End: 11-15-2024 ambulatory 11/15/2024 9:00 AM EDT OT/PT/Speech Visit [facility] [address] [place] [address] Frank Null, PT [address] [place] [address] Physical deconditioning [R53.81] [facility] Comment on above: Physical deconditioning [R53.81] Start: 11-11-2024 Complete blood count Hemoglobin/Hematocrit [facility] Start: 11-11-2024 Creatinine measurement Serum Creatinine [facility] Start: 11-09-2024 Complete blood count Hemoglobin/Hematocrit [facility] Start: 11-09-2024 Creatinine measurement Serum Creatinine [facility] Start: 11-07-2024 End: 11-07-2024 ambulatory 11/07/2024 10:45 AM EDT OT/PT/Speech Visit [facility] [address] [place] [phone] Adriana Wilson, OTR/L [address] [place], [place] [id number] Physical deconditioning [R53.81] [facility] Comment on above: Physical deconditioning [R53.81] Start: 11-06-2024 End: 11-06-2024 Patient encounter procedure 11/06/2024 2:40 PM EDT Office Visit Cardiology [address] [place] [address] Carla Burdick MD [address] [facility] [address] [place], [place] [id number] hospital f/u - acute on chronic CHF Cardiology Comment on above: hospital f/u - acute on chronic CHF Start: 11-06-2024 End: 02-05-2025 Basic metabolic 2000 panel - Serum or Plasma BASIC METABOLIC PANEL Lab Routine Chronic diastolic (congestive) heart failure (HCC) Expected: 11/06/2024, Expires: 02/05/2025 [facility] Work Phone: Comment on above: Expected: 11/06/2024, Expires: Start: 11-06-2024 End: 02-05-2025 Natriuretic peptide.B prohormone N-Terminal [Mass/volume] in Serum or Plasma NT PRO BNP Lab Routine Chronic diastolic (congestive) heart failure (HCC) Expected: 11/06/2024, Expires: 02/05/2025 [facility] Comment on above: Expected: 11/06/2024, Expires: Start: 11-03-2024 Annual PCP Team Chronic Disease Visit Annual PCP Team Chronic Disease Visit [facility] Start: 11-03-2024 End: 02-02-2025 Basic metabolic 2000 panel - Serum or Plasma BASIC METABOLIC PANEL Lab Routine Chronic diastolic congestive heart failure (HCC) Expected: 11/03/2024, Expires: 02/02/2025 [facility] Work Phone: Comment on above: Expected: 11/03/2024, Expires: Start: 10-31-2024 Complete blood count Hemoglobin/Hematocrit [facility] Start: 10-31-2024 Creatinine measurement Serum Creatinine [facility] Start: 10-26-2024 End: 10-26-2024 Patient encounter procedure 10/26/2024 9:00 AM EDT Office Visit Cardiology [address] [place] [address] Albin Gu, CLARITY DEVELOPER.[employer] [address], [place] [id number] I50.32 I10 I49.5 I48.11 Cardiology Comment on above: I50.32 I10 I49.5 I48.11 Start: 10-25-2024 End: 10-25-2024 Patient encounter procedure 10/25/2024 1:30 PM EDT Office Visit Vasculary Surgery [address] [place] [address] Bilateral carotid artery stenosis [I65.23] [facility] Comment on above: Bilateral carotid artery stenosis [I65.2 3] Start: 10-24-2024 End: 10-24-2024 Patient encounter procedure 10/24/2024 11:00 AM EDT Office Visit Cardiology [address] [place] [address] Albin Gu, CLARITY DEVELOPER.[employer]ER [address] [place] [address] CHF Cardiology Comment on above: CHF Start: 10-23-2024 End: 10-23-2024 Patient encounter procedure 10/23/2024 2:00 PM EDT Office Visit [facility] [address] [place], [place] [address] Deysi Collazo, CLARITY DEVELOPER.[employer] [address] [place] [address] Post hospital visit [facility] Comment on above: Post hospital visit Start: 10-17-2024 Annual PCP Team Chronic Disease Visit Annual PCP Team Chronic Disease Visit [facility] Start: 10-17-2024 End: 10-17-2024 Patient encounter procedure Cardiology Comment on above: medtronic ep eval [facility] Start: 10-15-2024 Creatinine measurement Serum Creatinine [facility] Start: 07-05-2024 Advance Directive Discussion Advance Directive Discussion [facility] Start: 07-05-2024 Medicare Advantage Annual Wellness Visit Medicare Advantage Annual Wellness Visit [facility] Start: 06-01-2024 Annual PCP Team Chronic Disease Visit Annual PCP Team Chronic Disease Visit [facility] Start: 06-01-2024 BP Controlled (<130/80) BP Controlled (<130/80) [facility] Start: 04-16-2024 Glaucoma screening Dilated Retinal Exam [facility] Start: 04-16-2024 Hepatitis C antibody, confirmatory test Dilated Retinal Exam [facility] Start: 04-12-2024 Annual PCP Team Chronic Disease Visit Annual PCP Team Chronic Disease Visit [facility] Start: 04-12-2024 Covid-19 Vaccine ( season) Covid-19 Vaccine () [facility] Comment on above: Postponed from 03/05/2023 (Declined at t his time) Start: 04-12-2024 Shingrix Vaccine (2 of 2) Shingrix Vaccine (2 of 2) [facility] Comment on above: Postponed from 01/03/2019 (Insurance Cov erage) Start: 04-07-2024 Complete blood count Hemoglobin/Hematocrit [facility] Start: 04-07-2024 Creatinine measurement Serum Creatinine [facility] Start: 04-07-2024 Hemoglobin/Hematocrit Hemoglobin/Hematocrit [facility] Start: 04-07-2024 Hepatitis B screening Urine Albumin:Creatinine Ratio [facility] Start: 04-07-2024 Hepatitis B surface antibody level LDL Cholesterol [facility] Start: 04-07-2024 Serum Creatinine Serum Creatinine [facility] Start: 04-07-2024 End: 04-07-2024 Patient encounter procedure 04/07/2024 9:00 AM EDT Office Visit Cardiology [address] [place] [address] Albin Gu, CLARITY DEVELOPER.[employer] [address] [place] [address] I50.32 I10 I49.5 I48.11 I50.21 Cardiology Comment on above: I50.32 I10 I49.5 I48.11 I50.21 Start: 04-06-2024 End: 04-06-2024 Patient encounter procedure 04/06/2024 9:00 AM EDT Office Visit Cardiology [address] [place] [address] Albin Gu, CLARITY DEVELOPER.[employer] [address] [place] [address] I50.32 I10 I49.5 I48.11 I50.21 Cardiology Comment on above: I50.32 I10 I49.5 I48.11 I50.21 Start: 03-05-2024 Covid-19 Vaccine ( season) Covid-19 Vaccine () [facility] Start: 03-05-2024 Covid-19 Vaccine ( season) Covid-19 Vaccine ( season) [facility] Start: 03-05-2024 Influenza vaccination Influenza Vaccine (#1) [facility] Start: 02-07-2024 End: 05-08-2024 Basic metabolic 2000 panel - Serum or Plasma BASIC METABOLIC PANEL Lab Routine Chronic kidney disease, unspecified CKD stage Expected: 02/07/2024, Expires: 05/08/2024 [facility] Work Phone: Comment on above: Expected: 02/07/2024, Expires: Start: 02-07-2024 End: 05-08-2024 Natriuretic peptide.B prohormone N-Terminal [Mass/volume] in Serum or Plasma NT PRO BNP Lab Routine Chronic diastolic congestive heart failure (HCC) Expected: 02/07/2024, Expires: 05/08/2024 [facility] Work Phone: Comment on above: Expected: 02/07/2024, Expires: Start: 02-07-2024 End: 02-07-2024 Patient encounter procedure 02/07/2024 8:00 AM EDT Office Visit Family Medicine [place] [address] [place], [place] [id number] Doreen Le PA-C [address] [place], [place] [id number] 3 month follow up [facility] [place] Comment on above: 3 month follow up Start: 01-17-2024 End: 04-17-2024 Comprehensive metabolic 2000 panel - Serum or Plasma COMPREHENSIVE METABOLIC PANEL Lab Routine Chronic diastolic (congestive) heart failure (HCC) Expected: 01/17/2024, Expires: 04/17/2024 [facility] Comment on above: Expected: 01/17/2024, Expires: Start: 01-17-2024 End: 04-17-2024 Lipid 1996 panel - Serum or Plasma LIPID PANEL BASIC Lab Routine Hyperlipidemia with target LDL less than 70 Expected: 01/17/2024, Expires: 04/17/2024 [facility] Work Phone: Comment on above: Expected: 01/17/2024, Expires: Start: 01-17-2024 End: 04-17-2024 Natriuretic peptide.B prohormone N-Terminal [Mass/volume] in Serum or Plasma NT PRO BNP Lab Routine Chronic diastolic (congestive) heart failure (HCC) Expected: 01/17/2024, Expires: 04/17/2024 [facility] Comment on above: Expected: 01/17/2024, Expires: Start: 01-17-2024 End: 01-17-2024 Patient encounter procedure 01/17/2024 9:20 AM EDT Office Visit Cardiology [address] [place] [id number] Carla Burdick MD [address] [id number] 6 month follow up Cardiology Comment on above: 6 month follow up Start: 01-09-2024 Urine microalbumin profile [facility] Start: 01-08-2024 ANNUAL PCP TEAM CHRONIC DISEASE VISIT ANNUAL PCP TEAM CHRONIC DISEASE VISIT [facility] Start: 12-02-2023 End: 03-02-2024 CBC W Auto Differential panel - Blood COMPLETE BLOOD COUNT AND DIFFERENTIAL Lab Routine Borderline anemia Acute systolic congestive heart failure (HCC) Expected: 12/02/2023, Expires: 03/02/2024 [facility] Work Phone: Comment on above: Expected: 12/02/2023, Expires: Start: 12-02-2023 End: 03-02-2024 Iron and Iron binding capacity panel - Serum or Plasma IRON AND TIBC Lab Routine Borderline anemia Expected: 12/02/2023, Expires: 03/02/2024 [facility] Comment on above: Expected: 12/02/2023, Expires: Start: 11-30-2023 End: 11-30-2023 Patient encounter procedure 11/30/2023 11:00 AM EDT Office Visit Cardiology [address] [place] [address] Albin Gu, TERI.KNIT [employer] MENDER [address] [place] [address] NEW CHF/post hospitalization Cardiology Comment on above: NEW CHF/post hospitalization Start: 11-25-2023 End: 02-24-2024 Basic metabolic 2000 panel - Serum or Plasma BASIC METABOLIC PANEL Lab Routine Chronic diastolic congestive heart failure (HCC) Expected: 11/25/2023, Expires: 02/24/2024 [facility] Work Phone: Comment on above: Expected: 11/25/2023, Expires: 4 Start: 11-25-2023 End: 11-25-2023 Patient encounter procedure 11/25/2023 10:00 AM EDT Office Visit Cardiology [address] [place] [address] Albin Gu APRN.[employer] [address] [place] [address] NEW CHF/post hospitalization Cardiology Comment on above: NEW CHF/post hospitalization Start: 11-24-2023 End: 11-24-2023 ambulatory 11/24/2023 11:00 AM EDT Visit (SP) Office Hematology/Oncology [address] [place] [address] [place] [address] [place] [address] 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] Hematology/Oncology Comment on above: Iron deficiency anemia secondary to inad equate dietary iron intake [D50.8] Start: 11-22-2023 End: 02-21-2024 Renal function 2000 panel - Serum or Plasma RENAL FUNCTION PANEL Lab Routine Hyponatremia Hypokalemia Expected: 11/22/2023, Expires: 02/21/2024 [facility] Work Phone: Comment on above: Expected: 11/22/2023, Expires: Start: 11-22-2023 End: 11-22-2023 Patient encounter procedure 11/22/2023 9:00 AM EDT Office Visit Family Medicine [place] [address] [place] [address] Deysi Collazo, CLARITY DEVELOPER.[employer] MENDER [address] [place], [place] [id number] [facility] Follow up Family Medicine [place] Comment on above: [facility] Follow up Start: 11-12-2023 End: 02-11-2024 Basic metabolic 2000 panel - Serum or Plasma BASIC METABOLIC PANEL Lab Routine Stage 3 chronic kidney disease, unspecified whether stage 3a or 3b CKD (HCC) Expected: 11/12/2023, Expires: 02/11/2024 [facility] Work Phone: Comment on above: Expected: 11/12/2023, Expires: Start: 11-09-2023 End: 11-09-2023 Patient encounter procedure Vasculary Surgery Comment on above: Carotid artery stenosis, asymptomatic, b ilateral [I65.23] PVD (peripheral vasc ular disease) with claudication (HCC) [I73.9] follow up after test ing Start: 11-08-2023 End: 11-08-2023 Patient encounter procedure 11/08/2023 4:30 PM EDT Office Visit Cardiology [address] [place] [phone] Bere Boykin APRN.[employer] M[employer]ER [address] [place] [address] Follow up Cardiology Comment on above: Follow up Start: 11-04-2023 End: 11-04-2023 Patient encounter procedure 11/04/2023 8:00 AM EDT Office Visit Family Medicine [place] [address] [place] [address] Doreen Le PA-C [address] [place] [address] 6 mo follow up Family Medicine [place] Comment on above: 6 mo follow up Start: 11-02-2023 End: 02-01-2024 Basic metabolic 2000 panel - Serum or Plasma BASIC METABOLIC PANEL Lab Routine Acute systolic congestive heart failure (HCC) Expected: 11/02/2023, Expires: 02/01/2024 [facility] Comment on above: Expected: 11/02/2023, Expires: Start: 10-18-2023 End: 01-17-2024 25-hydroxyvitamin D3 [Mass/volume] in Serum or Plasma VITAMIN D 25 HYDROXY Lab Routine Vitamin D deficiency Expected: 10/18/2023, Expires: 01/17/2024 [facility] Work Phone: Comment on above: Expected: 10/18/2023, Expires: Start: 10-18-2023 End: 01-17-2024 Basic metabolic 2000 panel - Serum or Plasma BASIC METABOLIC PANEL Lab Routine Acute systolic CHF (congestive heart failure) (HCC) Expected: 10/18/2023, Expires: 01/17/2024 [facility] Work Phone: Comment on above: Expected: 10/18/2023, Expires: Start: 10-18-2023 End: 01-17-2024 CBC panel - Blood by Automated count COMPLETE BLOOD COUNT Lab Routine Acute systolic CHF (congestive heart failure) (HCC) Expected: 10/18/2023, Expires: 01/17/2024 [facility] Work Phone: Comment on above: Expected: 10/18/2023, Expires: Start: 10-18-2023 End: 01-17-2024 Natriuretic peptide.B prohormone N-Terminal [Mass/volume] in Serum or Plasma NT PRO BNP Lab Routine Acute systolic CHF (congestive heart failure) (HCC) Expected: 10/18/2023, Expires: 01/17/2024 [facility] Work Phone: Comment on above: Expected: 10/18/2023, Expires: Start: 10-15-2023 End: 01-14-2024 Basic metabolic 2000 panel - Serum or Plasma BASIC METABOLIC PANEL Lab Routine 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) Dilated cardiomyopathy (HCC) Expected: 10/15/2023, Expires: 01/14/2024 [facility] Work Phone: Comment on above: Expected: 10/15/2023, Expires: Start: 10-15-2023 End: 01-14-2024 Natriuretic peptide.B prohormone N-Terminal [Mass/volume] in Serum or Plasma NT PRO BNP Lab Routine 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) Dilated cardiomyopathy (HCC) Expected: 10/15/2023, Expires: 01/14/2024 [facility] Work Phone: Comment on above: Expected: 10/15/2023, Expires: Start: 10-07-2023 ANNUAL PCP TEAM CHRONIC DISEASE VISIT ANNUAL PCP TEAM CHRONIC DISEASE VISIT [facility] Start: 10-07-2023 Hemoglobin A1c measurement HbA1C [facility] Start: 10-07-2023 Hemoglobin A1c/Hemoglobin.total in Blood HbA1C [facility] Start: 10-06-2023 HEMOGLOBIN/HEMATOCRIT HEMOGLOBIN/HEMATOCRIT [facility] Start: 10-06-2023 Hepatitis B surface antibody level LDL CHOLESTEROL [facility] Start: 10-06-2023 SERUM CREATININE SERUM CREATININE [facility] Start: 09-29-2023 BP CONTROLLED (<130/80) BP CONTROLLED (<130/80) [facility] Start: 07-07-2023 ANNUAL PCP TEAM CHRONIC DISEASE VISIT ANNUAL PCP TEAM CHRONIC DISEASE VISIT [facility] Start: 07-05-2023 Advance Directive Discussion Advance Directive Discussion [facility] Start: 07-05-2023 Behavioral Health Screening Behavioral Health Screening [facility] Start: 07-05-2023 Depression Assessment Depression Assessment [facility] Start: 07-03-2023 Hemoglobin A1c/Hemoglobin.total in Blood HBA1C [facility] Start: 05-14-2023 HEMOGLOBIN/HEMATOCRIT HEMOGLOBIN/HEMATOCRIT [facility] Start: 05-14-2023 SERUM CREATININE SERUM CREATININE [facility] Start: 04-15-2023 HEMOGLOBIN/HEMATOCRIT HEMOGLOBIN/HEMATOCRIT [facility] Start: 04-14-2023 Hepatitis C antibody, confirmatory test DILATED RETINAL EXAM [facility] Start: 04-07-2023 End: 06-07-2023 ALBUMIN/CREAT RATIO RND UR ALBUMIN/CREAT RATIO RND UR Lab Routine Type 2 diabetes mellitus with diabetic peripheral angiopathy without gangrene, without long-term current use of insulin (HCC) Expected: 04/07/2023, Expires: 06/07/2023 [facility] Work Phone: Comment on above: Expected: 04/07/2023, Expires: Start: 04-07-2023 End: 06-07-2023 CBC W Auto Differential panel - Blood CBC + DIFF Lab Routine Primary hypertension Gastroesophageal reflux disease without esophagitis Chronic renal failure, stage 3b (HCC) Expected: 04/07/2023, Expires: 06/07/2023 [facility] Work Phone: Comment on above: Expected: 04/07/2023, Expires: 3 Start: 04-07-2023 End: 06-07-2023 Comprehensive metabolic 2000 panel - Serum or Plasma COMP METABOLIC PANEL Lab Routine Primary hypertension Hyperlipidemia with target LDL less than 70 Gastroesophageal reflux disease without esophagitis Chronic renal failure, stage 3b (HCC) Type 2 diabetes mellitus with diabetic peripheral angiopathy without gangrene, without long-term current use of insulin ([facility]) Expected: 04/07/2023, Expires: 06/07/2023 [facility] Work Phone: Comment on above: Expected: 04/07/2023, Expires: Start: 04-07-2023 End: 06-07-2023 Ferritin [Mass/volume] in Serum or Plasma FERRITIN BLD Lab Routine Iron 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 Expected: 04/07/2023, Expires: 06/07/2023 [facility] Work Phone: Comment on above: Expected: 04/07/2023, Expires: Start: 04-07-2023 End: 06-07-2023 Hemoglobin A1c in Blood HGB A1C Lab Routine Type 2 diabetes mellitus with diabetic peripheral angiopathy without gangrene, without long-term current use of insulin ([facility]) Expected: 04/07/2023, Expires: 06/07/2023 [facility] Work Phone: Comment on above: Expected: 04/07/2023, Expires: 3 Start: 04-07-2023 End: 06-07-2023 Iron and Iron binding capacity panel - Serum or Plasma IRON + TIBC Lab Routine 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 Expected: 04/07/2023, Expires: 06/07/2023 [facility] Work Phone: Comment on above: Expected: 04/07/2023, Expires: 3 Start: 04-07-2023 End: 06-07-2023 Lipid 1996 panel - Serum or Plasma LIPID PANEL BASIC Lab Routine Hyperlipidemia with target LDL less than 70 Expected: 04/07/2023, Expires: 06/07/2023 [facility] Work Phone: Comment on above: Expected: 04/07/2023, Expires: Start: 04-06-2023 3 comp foot exam completed DIABETIC FOOT EXAM [facility] Start: 04-06-2023 ANNUAL PCP TEAM CHRONIC DISEASE VISIT ANNUAL PCP TEAM CHRONIC DISEASE VISIT [facility] Start: 04-06-2023 Diabetic foot examination Diabetic Foot Exam [facility] Start: 04-06-2023 HEMOGLOBIN/HEMATOCRIT HEMOGLOBIN/HEMATOCRIT [facility] Start: 04-06-2023 SERUM CREATININE SERUM CREATININE [facility] Start: 03-22-2023 HEMOGLOBIN/HEMATOCRIT HEMOGLOBIN/HEMATOCRIT [facility] Start: 03-22-2023 SERUM CREATININE SERUM CREATININE [facility] Start: 03-21-2023 HEMOGLOBIN/HEMATOCRIT HEMOGLOBIN/HEMATOCRIT [facility] Start: 03-21-2023 SERUM CREATININE SERUM CREATININE [facility] Start: 03-20-2023 HEMOGLOBIN/HEMATOCRIT HEMOGLOBIN/HEMATOCRIT [facility] Start: 03-20-2023 SERUM CREATININE SERUM CREATININE [facility] Start: 03-19-2023 ANNUAL PCP TEAM CHRONIC DISEASE VISIT ANNUAL PCP TEAM CHRONIC DISEASE VISIT [facility] Start: 03-19-2023 HEMOGLOBIN/HEMATOCRIT HEMOGLOBIN/HEMATOCRIT [facility] Start: 03-19-2023 SERUM CREATININE SERUM CREATININE [facility] Start: 03-05-2023 End: 09-29-2023 Echocardiography ECHO Cardiology Routine History of prosthetic aortic valve replacement H/O rheumatic heart disease Expected: 03/05/2023, Expires: 09/29/2023 [facility] Work Phone: Comment on above: Expected: 03/05/2023, Expires: Start: 03-05-2023 Influenza vaccination [facility] Start: 02-27-2023 HEMOGLOBIN/HEMATOCRIT HEMOGLOBIN/HEMATOCRIT [facility] Start: 02-27-2023 SERUM CREATININE SERUM CREATININE [facility] Start: 02-24-2023 HEMOGLOBIN/HEMATOCRIT HEMOGLOBIN/HEMATOCRIT [facility] Start: 02-24-2023 SERUM CREATININE SERUM CREATININE [facility] Start: 02-23-2023 HEMOGLOBIN/HEMATOCRIT HEMOGLOBIN/HEMATOCRIT [facility] Start: 02-22-2023 SERUM CREATININE SERUM CREATININE [facility] Start: 02-20-2023 ANNUAL PCP TEAM CHRONIC DISEASE VISIT ANNUAL PCP TEAM CHRONIC DISEASE VISIT [facility] Start: 02-17-2023 HEMOGLOBIN/HEMATOCRIT HEMOGLOBIN/HEMATOCRIT [facility] Start: 01-16-2023 ANNUAL PCP TEAM CHRONIC DISEASE VISIT ANNUAL PCP TEAM CHRONIC DISEASE VISIT [facility] Start: 01-09-2023 HEMOGLOBIN/HEMATOCRIT HEMOGLOBIN/HEMATOCRIT [facility] Start: 01-09-2023 SERUM CREATININE SERUM CREATININE [facility] Start: 01-01-2023 BP CONTROLLED (<130/80) BP CONTROLLED (<130/80) [facility] Start: 12-29-2022 HEMOGLOBIN/HEMATOCRIT HEMOGLOBIN/HEMATOCRIT [facility] Start: 12-26-2022 HEMOGLOBIN/HEMATOCRIT HEMOGLOBIN/HEMATOCRIT [facility] Start: 12-16-2022 Hepatitis B screening URINE ALBUMIN:CREATININE RATIO [facility] Start: 12-15-2022 Adult depression screening assessment DEPRESSION SCREENING [facility] Start: 12-15-2022 ANNUAL PCP TEAM CHRONIC DISEASE VISIT ANNUAL PCP TEAM CHRONIC DISEASE VISIT [facility] Start: 12-15-2022 BP CONTROLLED (<130/80) BP CONTROLLED (<130/80) [facility] Start: 12-15-2022 HEMOGLOBIN/HEMATOCRIT HEMOGLOBIN/HEMATOCRIT [facility] Start: 12-15-2022 Hepatitis B surface antibody level LDL CHOLESTEROL [facility] Start: 12-03-2022 DEPRESSION ASSESSMENT DEPRESSION ASSESSMENT [facility] Comment on above: Postponed from 07/05/2022 (Declined at t his time) Start: 11-28-2022 HEMOGLOBIN/HEMATOCRIT HEMOGLOBIN/HEMATOCRIT [facility] Start: 11-28-2022 SERUM CREATININE SERUM CREATININE [facility] Start: 10-06-2022 End: 12-06-2022 Iron and Iron binding capacity panel - Serum or Plasma IRON + TIBC Lab Routine Iron malabsorption Expected: 10/06/2022, Expires: 12/06/2022 [facility] Work Phone: Comment on above: Expected: 10/06/2022, Expires: Start: 10-05-2022 End: 12-05-2022 CBC W Auto Differential panel - Blood CBC + DIFF Lab Routine Atrial fibrillation, unspecified type (HCC) Presence of Watchman left atrial appendage closure device Platelet inhibition due to Plavix Stage 3b chronic kidney disease (HCC) Type 2 diabetes mellitus with diabetic peripheral angiopathy without gangrene, without long-term current use of insulin (HCC) Expected: 10/05/2022, Expires: 12/05/2022 [facility] Work Phone: Comment on above: Expected: 10/05/2022, Expires: 3 Start: 10-05-2022 End: 12-05-2022 Comprehensive metabolic 2000 panel - Serum or Plasma COMP METABOLIC PANEL Lab Routine Atrial fibrillation, unspecified type (HCC) Hyperlipidemia with target LDL less than 70 Expected: 10/05/2022, Expires: 12/05/2022 [facility] Work Phone: Comment on above: Expected: 10/05/2022, Expires: 3 Start: 09-28-2022 End: 11-28-2022 Lipid 1996 panel - Serum or Plasma LIPID PANEL BASIC Lab Routine Hyperlipidemia with target LDL less than 70 Expected: 09/28/2022, Expires: 11/28/2022 [facility] Work Phone: Comment on above: Expected: 09/28/2022, Expires: 3 Start: 09-17-2022 Hemoglobin A1c/Hemoglobin.total in Blood HBA1C [facility] Start: 09-16-2022 ANNUAL PCP TEAM CHRONIC DISEASE VISIT ANNUAL PCP TEAM CHRONIC DISEASE VISIT [facility] Start: 09-16-2022 BP CONTROLLED (<130/80) BP CONTROLLED (<130/80) [facility] Start: 09-16-2022 SHINGRIX VACCINE (2 of 2) SHINGRIX VACCINE (2 of 2) [facility] Comment on above: Postponed from 01/03/2019 (Insurance Cov erage) Start: 09-13-2022 HEMOGLOBIN/HEMATOCRIT HEMOGLOBIN/HEMATOCRIT [facility] Start: 09-02-2022 End: 05-09-2023 US KIDNEY/BLADDER US KIDNEY/BLADDER Radiology Routine Neoplasm of uncertain behavior of right kidney Expected: 09/02/2022, Expires: 05/09/2023 [facility] Work Phone: Comment on above: Expected: 09/02/2022, Expires: 3 Start: 07-07-2022 End: 05-06-2023 Ct thorax w/o contrast material CT CHEST WO IVCON Radiology Routine Lung nodule, solitary Expected: 07/07/2022, Expires: 05/06/2023 [facility] Work Phone: Comment on above: Expected: 07/07/2022, Expires: 3 Start: 07-05-2022 ADVANCE DIRECTIVE DISCUSSION ADVANCE DIRECTIVE DISCUSSION [facility] Start: 07-05-2022 DEPRESSION ASSESSMENT DEPRESSION ASSESSMENT [facility] Start: 06-16-2022 Hemoglobin A1c/Hemoglobin.total in Blood HBA1C [facility] Start: 06-02-2022 SERUM CREATININE SERUM CREATININE [facility] Start: 05-07-2022 End: 07-07-2022 Basic metabolic 2000 panel - Serum or Plasma BASIC METABOLIC PNL Lab Routine Stage 3b chronic kidney disease (HCC) Iron deficiency anemia due to chronic blood loss Expected: 05/07/2022, Expires: 07/07/2022 [facility] Work Phone: Comment on above: Expected: 05/07/2022, Expires: 3 Start: 05-07-2022 End: 07-07-2022 CBC panel - Blood by Automated count CBC Lab Routine Stage 3b chronic kidney disease (HCC) Iron deficiency anemia due to chronic blood loss Expected: 05/07/2022, Expires: 07/07/2022 [facility] Work Phone: Comment on above: Expected: 05/07/2022, Expires: 3 Start: 03-30-2022 End: 05-30-2022 Basic metabolic 2000 panel - Serum or Plasma BASIC METABOLIC PNL Lab Routine Primary hypertension Expected: 03/30/2022, Expires: 05/30/2022 [facility] Work Phone: Comment on above: Expected: 03/30/2022, Expires: 2 Start: 03-05-2022 Influenza vaccination INFLUENZA (#1) [facility] Start: 02-20-2022 End: 04-22-2022 Basic metabolic 2000 panel - Serum or Plasma [facility] Work Phone: Comment on above: Expected: 02/20/2022, Expires: 2 Start: 02-19-2022 Hepatitis C antibody, confirmatory test DILATED RETINAL EXAM [facility] Start: 01-21-2022 End: 01-21-2023 SARS-CoV-2 (COVID-19) RNA [Presence] in Respiratory specimen by R[place]OLPH with probe detection PRE-PROCEDURE & PRE-OPERATIVE COVID Microbiology Routine Paroxysmal atrial fibrillation (HCC) Expected: 01/21/2022, Expires: 01/21/2023 [facility] Work Phone: Comment on above: Expected: 01/21/2022, Expires: 3 Start: 12-30-2021 Administration of blood product [facility] Work Phone: Start: 12-30-2021 [facility] Work Phone: Start: 12-27-2021 End: 02-26-2022 CBC W Auto Differential panel - Blood CBC + DIFF Lab Routine Anemia, unspecified type Expected: 12/27/2021, Expires: 02/26/2022 [facility] Work Phone: Comment on above: Expected: 12/27/2021, Expires: 2 Start: 12-27-2021 End: 02-26-2022 Iron and Iron binding capacity panel - Serum or Plasma IRON + TIBC Lab Routine Anemia, unspecified type Expected: 12/27/2021, Expires: 02/26/2022 [facility] Work Phone: Comment on above: Expected: 12/27/2021, Expires: 2 Start: 12-15-2021 End: 02-14-2022 ALBUMIN/CREAT RATIO RND UR ALBUMIN/CREAT RATIO RND UR Lab Routine Type 2 diabetes mellitus with diabetic peripheral angiopathy without gangrene, without long-term current use of insulin (HCC) Expected: 12/15/2021, Expires: 02/14/2022 [facility] Work Phone: Comment on above: Expected: 12/15/2021, Expires: 2 Start: 12-11-2021 Hepatitis B surface antibody level LDL CHOLESTEROL [facility] Start: 11-26-2021 End: 01-26-2022 CBC panel - Blood by Automated count CBC Lab Routine PAD (peripheral artery disease) (HCC) Anemia due to chronic illness Expected: 11/26/2021, Expires: 01/26/2022 [facility] Work Phone: Comment on above: Expected: 11/26/2021, Expires: 2 Start: 11-26-2021 End: 01-26-2022 Renal function 2000 panel - Serum or Plasma RENAL FUNCTION PANEL Lab Routine PAD (peripheral artery disease) (HCC) Expected: 11/26/2021, Expires: 01/26/2022 [facility] Work Phone: Comment on above: Expected: 11/26/2021, Expires: 2 Start: 07-13-2021 COVID-19 VACCINE (4 - Booster for Pfizer series) COVID-19 VACCINE (4 - Booster for Pfizer series) [facility] Start: 07-12-2021 Hepatitis B screening URINE ALBUMIN:CREATININE RATIO [facility] Start: 07-05-2021 ADVANCE DIRECTIVE DISCUSSION ADVANCE DIRECTIVE DISCUSSION [facility] Start: 07-05-2021 DEPRESSION ASSESSMENT DEPRESSION ASSESSMENT [facility] Start: 06-12-2021 Hemoglobin A1c/Hemoglobin.total in Blood HBA1C [facility] Start: 05-08-2021 COVID-19 VACCINE (4 - Booster for Pfizer series) COVID-19 VACCINE (4 - Booster for Pfizer series) [facility] Start: 05-08-2021 COVID-19 VACCINE (4 - Pfizer series) COVID-19 VACCINE (4 - Pfizer series) [facility] Start: 2020 RSV Vaccine (1 - 1-dose 75+ series) RSV Vaccine (1 - 1-dose 75+ series) [facility] Start: 07-18-2020 Adult depression screening assessment DEPRESSION SCREENING [facility] Start: 05-25-2019 End: 05-25-2019 Office Visit 05/25/2019 Office Visit Cardiovascular Medicine Mars Chung, DO [address] [place] [address] [facility] Cardiology Start: 03-05-2019 Influenza vaccination INFLUENZA VACCINE (#1) [facility] Start: 01-03-2019 SHINGRIX VACCINE (2 of 2) SHINGRIX VACCINE (2 of 2) [facility] Start: 01-08-2015 3 comp foot exam completed DIABETIC FOOT EXAM [facility] Start: 2010 Pneumococcal vaccination PNEUMOCOCCAL VACCINE SERIES (1 of 2 - PCV13) [facility] Start: 2005 Hepatitis B Vaccine (1 of 3 - Risk 3-dose series) Hepatitis B Vaccine (1 of 3 - Risk 3-dose series) [facility] Start: 2005 RSV Vaccine (1 - 1-dose 60+ series) RSV Vaccine (1 - 1-dose 60+ series) [facility] Start: 1995 Colonoscopy COLON CANCER SCREENING DISCUSSION [facility] Start: 1995 Zoster vaccine hzv live for subcutaneous use ZOSTER (SHINGLES) VACCINE (1 of 2) [facility] Start: 1985 Fasting lipid profile LIPID SCREENING [facility] Start: 1985 Screening mammography MAMMOGRAM SCREENING DISCUSSION [facility] Start: 1966 Screening for malignant neoplasm of cervix PAP SMEAR DISCUSSION [facility] Start: 1964 Third diphtheria, tetanus and acellular pertussis (DTaP) vaccination TDAP (ADULT) [facility] Start: 1963 Anxiety Screening Anxiety Screening [facility] Start: 1963 BP CONTROLLED (<130/80) BP CONTROLLED (<130/80) [facility] Start: 1963 Depression Screening Depression Screening [facility] Start: 1963 Tetanus vaccination TETANUS [facility] Start: 1945 Hepatitis C antibody, confirmatory test HEPATITIS C VIRUS SCREENING [facility] Start: 1945 Potassium [Moles/Vol] POTASSIUM [facility] Start: 1945 Screening for osteoporosis DEXA SCAN DISCUSSION [facility] Alanine aminotransfe rase [Enzymatic activity/volume] in Serum or Plasma [facility] Albumin [Mass/volume ] in Serum or Plasma [facility] Alkaline phosphatase [Enzymatic activity/volume] in Serum or Plasma [facility] Anion gap in Serum o r Plasma [facility] Anion gap in Serum o r Plasma [facility] Bacteria identified in Unspecified specimen by Anaerobe culture [facility] Basic metabolic 2008 panel with ionized calcium - Serum or Plasma [facility] Bilirubin, total measurement [facility] BUN/Creatinine ratio [facility] BUN/Creatinine ratio [facility] Calcium [Mass/volume ] in Serum or Plasma [facility] Calcium [Mass/volume ] in Serum or Plasma [facility] Carbon dioxide, tota l [Moles/volume] in Central venous blood [facility] Carbon dioxide, tota l [Moles/volume] in Central venous blood [facility] CBC W Auto Different ial panel - Blood [facility] Cholesterol [Mass/vo lume] in Serum or Plasma [facility] Cholesterol in HDL [Mass/volume] in Serum or Plasma [facility] COVID & INFLUENZA A/ B & RSV NAAT, ROUTINE COVID & INFLUENZA A/B & RSV NAAT, ROUTINE Microbiology Routine Influenza-like illness Ordered: 07/05/2023 [facility] Work Phone: Comment on above: Ordered: 07/05/2023 Creatinine [Mass/vol ume] in Serum or Plasma [facility] Creatinine [Mass/vol ume] in Serum or Plasma [facility] End: 01-21-2023 ECG COMPLETE ECG COMPLETE ECG Routine Paroxysmal atrial fibrillation (HCC) 1 Occurrences starting 01/21/2022 until 01/21/2023 [facility] Work Phone: Comment on above: 1 Occurrences starting 01/21/2022 until 01/21/2023 End: 02-09-2023 ECG COMPLETE ECG COMPLETE ECG Routine Paroxysmal atrial fibrillation (HCC) Presence of Watchman left atrial appendage closure device 1 Occurrences starting 02/09/2022 until 02/09/2023 [facility] Work Phone: Comment on above: 1 Occurrences starting 02/09/2022 until 02/09/2023 End: 03-19-2023 ECG COMPLETE ECG COMPLETE ECG Routine Aortic prosthetic valve regurgitation, 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) 1 Occurrences starting 03/19/2022 until 03/19/2023 [facility] Work Phone: Comment on above: 1 Occurrences starting 03/19/2022 until 03/19/2023 ECG COMPLETE ECG COMPLETE ECG 03/19/2022 11:04 AM EDT [facility] ECG COMPLETE [facility] Work Phone: Comment on above: Ordered: 10/18/2023 ECG COMPLETE ECG COMPLETE ECG 11/08/2023 4:52 PM EDT [facility] End: 01-21-2023 ECHO TRANSESOPHAGEAL ECHO TRANSESOPHAGEAL Cardiology Routine Paroxysmal atrial fibrillation (HCC) 1 Occurrences starting 01/21/2022 until 01/21/2023 [facility] Work Phone: Comment on above: 1 Occurrences starting 01/21/2022 until 01/21/2023 End: 02-09-2023 ECHO TRANSESOPHAGEAL ECHO TRANSESOPHAGEAL Cardiology Routine Paroxysmal atrial fibrillation (HCC) Presence of Watchman left atrial appendage closure device 1 Occurrences starting 02/09/2022 until 02/09/2023 [facility] Work Phone: Comment on above: 1 Occurrences starting 02/09/2022 until 02/09/2023 ECHO TRANSESOPHAGEAL ECHO TRANSE SOPHAGEAL Cardiology Routine Longstanding persistent atrial fibrillation (HCC) Presence of Watchman left atrial appendage closure device Ordered: 03/04/2022 [facility] Work Phone: Comment on above: Ordered: 03/04/2022 End: 10-17-2024 Echocardiography ECHO Cardiology Routine Acute systolic CHF (congestive heart failure) (HCC) 1 Occurrences starting 10/18/2023 until 10/17/2024 [facility] Work Phone: Comment on above: 1 Occurrences starting 10/18/2023 until 10/17/2024 End: 01-01-2026 Echocardiography ECHO Cardiology Routine Chronic diastolic (congestive) heart failure (HCC) History of prosthetic aortic valve replacement Acute on chronic diastolic congestive heart failure (HCC) 1 Occurrences starting 01/01/2025 until 01/01/2026 [facility] Work Phone: Comment on above: 1 Occurrences starting 01/01/2025 until 01/01/2026 End: 01-01-2023 EGD DIAGNOSTIC EGD DIAGNOSTIC Endoscopy Routine Acute blood loss anemia Heme + stool Epigastric pain 1 Occurrences starting 01/01/2022 until 01/01/2023 [facility] Work Phone: Comment on above: 1 Occurrences starting 01/01/2022 until 01/01/2023 Erythrocyte mean corpuscular volume determination [facility] Erythrocyte mean corpuscular volume determination [facility] Ferritin [Mass/volum e] in Serum or Plasma [facility] Glucose [Mass/volume ] in Serum or Plasma [facility] Glucose [Mass/volume ] in Serum or Plasma [facility] Hematocrit [Volume Fraction] of Blood [facility] Hematocrit [Volume Fraction] of Blood [facility] Hemoglobin [Mass/vol ume] in Blood [facility] Hemoglobin [Mass/vol ume] in Blood [facility] Hemoglobin.gastroint estin al.lower [Presence] in Stool by Immunoassay FECAL OCCULT BLOOD TEST Lab Routine Heme + stool Ordered: 12/15/2021 [facility] Work Phone: Comment on above: Ordered: 12/15/2021 Hemoglobin.gastroint estin al.lower [Presence] in Stool by Immunoassay IMMUNOCHEMICAL FECAL OCCULT BLOOD TEST Lab Routine Acute systolic CHF (congestive heart failure) (HCC) Ordered: 11/04/2023 [facility] Work Phone: Comment on above: Ordered: 11/04/2023 Iron [Mass/mass] in Unspecified specimen [facility] Iron and Iron bindin g capacity panel - Serum or Plasma [facility] Iron saturation [Mas s Fraction] in Serum or Plasma [facility] Leukocytes [#/volume ] in Blood [facility] Leukocytes [#/volume ] in Blood [facility] Low density lipoprot ein cholesterol measurement [facility] Magnesium measurement [facility] Mean corpuscular hemoglobin concentration determination [facility] Mean corpuscular hemoglobin concentration determination [facility] Mean corpuscular hemoglobin determination [facility] Mean corpuscular hemoglobin determination [facility] Measurement of renal function [facility] Measurement of renal function [facility] End: 08-06-2023 Mra head w/o & w/contrast material MRA BRAIN WO/W IVCON Radiology Routine 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 B prohormone N-Terminal [Mass/volume] in Serum or Plasma [facility] Neutrophil count [facility] Neutrophil count [facility] Neutrophil percent differential count [facility] Neutrophil percent differential count [facility] Patient Education [facility] Work Phone: Platelets [#/volume] in Blood [facility] Platelets [#/volume] in Blood [facility] Potassium measurement [facility] Potassium measurement [facility] End: 01-08-2024 PVR ANK PRESS [facility] PVR ANK PRESS [facility] Vascular Lab Routine 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HCC) Pain in both lower legs Atherosclerosis of [place] artery of both lower extremities with intermittent claudication (HCC) 1 Occurrences starting 01/07/2023 until 01/08/2024 [facility] Work Phone: Comment on above: 1 Occurrences starting 01/07/2023 until 01/08/2024 End: 01-08-2024 PVR LEG [facility] PVR LEG [facility] Vascular Lab Routine 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HCC) Pain in both lower legs Atherosclerosis of [place] artery of both lower extremities with intermittent claudication (HCC) 1 Occurrences starting 01/07/2023 until 01/08/2024 [facility] Work Phone: Comment on above: 1 Occurrences starting 01/07/2023 until 01/08/2024 Red blood cell count [facility] Red blood cell count [facility] Red cell distributio n width determination [facility] Red cell distributio n width determination [facility] Serum chloride measurement [facility] Serum chloride measurement [facility] Sodium measurement [facility] Sodium measurement [facility] SURGICAL PATHOLOGY [facility] Work Phone: Comment on above: Release Upon Ordering for 1 Occurrences starting 01/02/2022, 1 completed Total cholesterol:HD L ratio measurement [facility] Total iron binding capacity measurement [facility] Total protein measurement [facility] Triglycerides measurement [facility] Troponin T.cardiac [Mass/volume] in Serum or Plasma by High sensitivity method [facility] Urea nitrogen [Mass/volume] in Serum or Plasma [facility] Urea nitrogen [Mass/volume] in Serum or Plasma [facility] End: 01-08-2024 US CAROTID ARTERIES [facility] US CAROTID ARTERIES [facility] Vascular Lab Routine Bilateral carotid artery stenosis 1 Occurrences starting 01/07/2023 until 01/08/2024 [facility] Work Phone: Comment on above: 1 Occurrences starting 01/07/2023 until 01/08/2024 End: 12-20-2025 US Mesenteric arteries US MESENTERIC ARTERY [facility] Vascular Lab Routine Superior mesenteric artery stenosis (HCC) 1 Occurrences starting 12/20/2024 until 12/20/2025 [facility] Work Phone: Comment on above: 1 Occurrences starting 12/20/2024 until 12/20/2025 VLDL cholesterol measurement [facility] Immunizations Immunization Date Immunization Notes Care Provider Edouard ventura 07-07-2024 influenza, high dose seasonal, preservative-free Melida Koo [employer] Work Phone: [facility] 07-07-2024 influenza virus vacc ine, unspecified formulation Carla Burdick MD Work Phone: [facility] 04-12-2023 influenza (HD-IIV4) vaccine, age 65+ yr, high dose, quadrivalent, PF (FLUZONE HIGH-DOSE) Ct (I-Stat) Work Phone: [facility] 04-12-2023 influenza virus vacc ine, unspecified formulation Carla Burdick MD Work Phone: [facility] 05-22-2022 influenza (aIIV4) vaccine, age 65+ yr, quadrivalent, PF (FLUAD QUADRIVALENT) NA Rey HAMLIN Work Phone: [facility] 05-22-2022 influenza, high-dose , quadrivalent vaccine (FLUZONE HIGH DOSE QUADRIVALENT) Sonny Lund MD Work Phone: [facility] 05-22-2022 influenza virus vacc ine, unspecified formulation Yin Joseph MD Work Phone: [facility] 05-20-2021 influenza, high-dose , quadrivalent vaccine (FLUZONE HIGH DOSE QUADRIVALENT) Chandler Swan MD Work Phone: [facility] 10-09-2020 COVID-19 vaccine, ag e 12+ yr (PFIZER-BIONTECH - PURPLE TOP) Chandler Swan MD Work Phone: [facility] 09-18-2020 COVID-19 vaccine, ag e 12+ yr (PFIZER-BIONTECH - PURPLE TOP) Chandler Swan MD Work Phone: [facility] 05-17-2020 influenza, high-dose , quadrivalent vaccine (FLUZONE HIGH DOSE QUADRIVALENT) Chandler Swan MD Work Phone: [facility] 05-09-2019 influenza, high dose seasonal, preservative-free Chandler Swan MD Work Phone: [facility] 11-08-2018 zoster vaccine recombinant Chandler Swan MD Work Phone: [facility] Work Phone: 05-09-2018 Seasonal trivalent influenza vaccine, adjuvanted, preservative free Chandler Swan MD Work Phone: [facility] 05-05-2017 influenza nasal, unspecified formulation Chandler Swan MD Work Phone: [facility] 05-05-2017 influenza, injectabl e, quadrivalent, contains preservative Chandler Swan MD Work Phone: [facility] 05-05-2017 influenza, seasonal, injectable Chandler Swan MD Work Phone: [facility] 05-05-2017 influenza virus vacc ine, unspecified formulation Mars Chung [facility] 04-05-2017 influenza, injectabl e, quadrivalent, preservative free Ct (I-Stat) Work Phone: [facility] 04-05-2017 influenza, seasonal, injectable [facility] 04-05-2017 influenza, seasonal, injectable, preservative free Chandler Swan MD Work Phone: [facility] 11-25-2016 pneumococcal conjuga te vaccine, 13 valent Chandler Swan MD Work Phone: [facility] Work Phone: 04-07-2016 influenza, high dose seasonal, preservative-free Chandler Swan MD Work Phone: [facility] Work Phone: 01-08-2014 tetanus toxoid, redu javid diphtheria toxoid, and acellular pertussis vaccine, adsorbed Chandler Swan MD Work Phone: [facility] Work Phone: 06-06-2013 pneumococcal polysaccharide vaccine, 23 valent Chandler Swan MD Work Phone: [facility] 05-14-2013 influenza nasal, unspecified formulation Chandler Swan MD Work Phone: [facility] 05-14-2013 influenza virus vacc ine, unspecified formulation Chandler Swan MD Work Phone: [facility] 05-14-2013 influenza, seasonal, injectable, preservative free Chandler Swan MD Work Phone: [facility] 05-20-2012 influenza, seasonal, injectable Chandler Swan MD Work Phone: [facility] 04-29-2011 influenza, seasonal, injectable, preservative free Chandler Swan MD Work Phone: [facility] 04-23-2009 influenza, seasonal, injectable Chandler Swan MD Work Phone: [facility] 07-07-1999 pneumococcal polysaccharide vaccine, 23 valent Chai Encinas MD Work Phone: [facility] Work Phone: 07-05-1999 pneumococcal polysaccharide vaccine, 23 valent Chandler Swan MD Work Phone: [facility] Payers Date Payer Category Payer Self-pay [id number] 2021 Medicare [id number] 2021 Medicare [id number] 2021 Medicare (Managed Care) PRADEEP NICKERSON [id number] 2021 Private Health Insurance [id number] 2019 Medicare MEDICARE HU[employer]NA HMO PPO MEDICARE HU[employer]NA HMO PPO xxxxxxxxx 2019-Present xxxxxxxxx [id number] 2015 Medicare SELF PAY INSURANCE [id number] Unknown [id number] 2.16.840.1.832398.3.579.2. 462 Unknown [id number] 2.16.840.1.395001.3.579.2. 462 Unknown [id number] 2.16.840.1.309419.3.579.2. 462 Unknown [id number] 2.16.840.1.153380.3.579.2. 462 Unknown [id number] 2.16.840.1.115452.3.579.2. 462 Unknown [id number] 2.16.840.1.271284.3.579.2. 462 Unknown [id number] 2.16.840.1.152408.3.579.2. 462 Unknown [id number] 2.16.840.1.117038.3.579.2. 462 Unknown [id number] 2.16.840.1.765833.3.579.2. 462 Unknown [id number] 2.16.840.1.879900.3.579.2. 462 Unknown [id number] 2.16.840.1.427966.3.579.2. 462 Unknown [id number] 2.16.840.1.607685.3.579.2. 462 Unknown [id number] 2.16.840.1.077529.3.579.2. 462 Unknown [id number] 2.16.840.1.593012.3.579.2. 462 Unknown [id number] 2.16.840.1.129593.3.579.2. 462 Unknown [id number] 2.16.840.1.306902.3.579.2. 462 Unknown [id number] 2.16.840.1.990607.3.579.2. 462 Unknown [id number] 2.16.840.1.435702.3.579.2. 462 Unknown [id number] 2.16.840.1.554518.3.579.2. 462 Unknown [id number] 2.16.840.1.912760.3.579.2. 462 Unknown [id number] 2.16.840.1.790538.3.579.2. 462 Unknown [id number] 2.16.840.1.362555.3.579.2. 462 Unknown [id number] 2.16.840.1.994341.3.579.2. 462 Unknown [id number] 2.16.840.1.045231.3.579.2. 462 Unknown [id number] 2.840.1.870469.3.579.2. 462 Unknown [id number] 2..840.1.002894.3.579.2. 462 Unknown [id number] 2.840.1.272897.3.579.2. 462 Unknown [id number] 2.840.1.799991.3.579.2. 462 Unknown [id number] 2.840.1.965932.3.579.2. 462 Unknown [id number] 2.16.840.1.624361.3.579.2. 462 Unknown [id number] 2.840.1.773630.3.579.2. 462 Unknown [id number] 2.16840.1.445212.3.579.2. 462 Unknown [id number] 2.16.840.1.071061.3.579.2. 462 Unknown [id number] 2.16840.1.482682.3.579.2. 462 Unknown [id number] 2.16.840.1.456344.3.579.2. 462 Unknown [id number] 2.16.840.1.970722.3.579.2. 462 Unknown [id number] 2.16840.1.296187.3.579.2. 462 Unknown [id number] 2.16.840.1.920612.3.579.2. 462 Unknown [id number] 2.16.840.1.360763.3.579.2. 462 Unknown [id number] 2.16.840.1.070363.3.579.2. 462 Unknown [id number] 2.840.1.419482.3.579.2. 462 Social History Date Type Detail Facility Start: 01-19-2019 End: 03-22-2025 Tobacco smoking status NHIS Former smoker [facility] Start: 01-19-2019 Tobacco Comment smoked for a y ear, 50 years ago [employer] [facility] Start: 01-19-2019 Alcohol Comment occasional wine [facility] Start: 1945 Sex Assigned At Not on file A [employer] Start: 07-05-1965 End: 02-11-1970 History of tobacco use Current smoker [facility] Start: 08-10-2019 End: 04-07-2024 Tobacco use and exposure Smokeless tobacco non-user [facility] Start: 09-16-2021 End: 12-15-2021 Alcohol intake Current drinker of alcohol (finding) [facility] Start: 09-16-2021 End: 01-07-2023 Alcohol intake [facility] Start: 10-25-2019 End: 10-29-2019 History SDOH Alcohol Frequency 2 [facility] Start: 10-25-2019 End: 10-29-2019 History SDOH Alcohol Std Drinks 1 [facility] Start: 01-31-2019 History SDOH Alcohol Comment red wine 2-3 times a week- occasional [facility] Start: 10-29-2019 History SDOH Social Connections Phone 5 [facility] Start: 10-29-2019 End: 02-24-2022 History SDOH Social Connections Jain 3 [facility] Start: 10-29-2019 Education 15 [facility] Start: 09-05-2021 End: 05-14-2022 Exposure to SARS-CoV-2 (event) Not sure [facility] Start: 10-14-2021 End: 01-23-2022 Exposure to SARS-CoV-2 (event) Unable to assess [facility] Start: 02-13-2021 Tobacco smoking stat us MOIS Unknown if ever smoked [facility] Work Phone: Start: 1945 Sex Assigned At Female [facility] Start: 07-05-1965 End: 02-11-1970 History of tobacco use Cigarette Smoker [facility] Start: 06-08-2022 End: 12-20-2024 Alcohol intake Ex-drinker (finding) [facility] Start: 01-07-2023 End: 12-11-2024 Tobacco use panel [facility] Start: 06-05-2012 How hard is it for y ou to pay for the very basics like food, housing, medical care, and heating Patient refused [facility] (I/We) worried wheth er (my/our) food would run out before (I/we) got money to buy more. DK or Refused [facility] Do you belong to any clubs or organizations such as voodoo groups, unions, fraternal or athletic groups, or school groups? Yes [facility] Are you now , , , , never or living with a partner? [facility] How often to you hav e a drink containing alcohol? Monthly or less [facility] How many standard dr inks containing alcohol do you have on a typical day? 1 or 2 [facility] How often do you hav e 6 or more drinks on 1 occasion? Never [facility] Do you feel stress - tense, restless, nervous, or anxious, or unable to sleep at night because your mind is troubled all the time - these days [OSQ] Not at all [facility] Has the [employer] or [employer] threatened to shut off services in your home in past 12Mo No [facility] (I/We) worried wheth er (my/our) food would run out before (I/we) got money to buy more. Never true [facility] Start: 01-07-2025 End: 01-11-2025 Tobacco smoking status NHIS Never smoked tobacco (finding) [facility] Start: 11-15-2017 Alcohol Alcohol [facility] Start: 11-15-2017 Drugs Drugs [facility] Start: 11-15-2017 Lives Lives [facility] Start: 01-11-2025 Tobacco Use Tobacco Use [facility] Medical Equipment Procedure Code Equipment Code Equipment Origin al Text Equipment Identifier Dates Test blood sugar (s) 2 times daily. Dx: Type 2 DM - Controlled E11.9 Insulin: No [id number] Start: 01-19-2019 Comment on above: Test blood sugar(s) 2 times daily. Dx: Type 2 DM - Controlled E11.9 Insulin: No [id number] Sania Xt [id number] Start: 10-21-2020 [id number] [employer] [id number] Start: 10-21-2020 [id number] [employer] [id number] Start: 10-21-2020 Goals Date Patient Goal Desired Activity /State Personal health goal Functional Status Date Assessment Result Facility 01-11-2025 Functional status Chair [facility] Work Phone: 12-12-2024 Are you deaf, or do you have serious difficulty hearing Yes 12/12/2024 10:12 AM EDLizeth Shaw RN Yes [facility] 12-12-2024 Are you blind, or do you have serious difficulty seeing, even when wearing glasses No 12/12/2024 10:12 AM Lizeth Phoenix, DOUG No [facility] 12-12-2024 Do you have serious difficulty walking or climbing stairs No 12/12/2024 10:12 AM Lizeth Phoenix RN No [facility] 12-12-2024 Do you have difficul ty dressing or bathing No 12/12/2024 10:12 AM Lizeth Phoenix RN No [facility] 12-12-2024 Because of a physica l, mental, or emotional condition, do you have difficulty doing errands alone such as visiting a physician's office or shopping No 12/12/2024 10:12 AM Lizeth Phoenix RN No [facility] 11-12-2023 Are you deaf, or do you have serious difficulty hearing No 11/12/2023 3:37 PM EDT Raina Coppola RN No [facility] 11-12-2023 Are you blind, or do you have serious difficulty seeing, even when wearing glasses No 11/12/2023 3:37 PM EDT Raina Coppola RN No [facility] 11-12-2023 Do you have serious difficulty walking or climbing stairs No 11/12/2023 3:37 PM EDT Raina Coppola RN No [facility] 11-12-2023 Do you have difficul ty dressing or bathing No 11/12/2023 3:37 PM EDT Raina Coppola RN No [facility] 11-12-2023 Because of a physica l, mental, or emotional condition, do you have difficulty doing errands alone such as visiting a physician's office or shopping No 11/12/2023 3:37 PM EDT Raina Coppola RN No [facility] Mental Status Date Assessment Result Facility 03-27-2025 Cognitive function Voice/Name [facility] Work Phone: 03-20-2025 Cognitive function Awake [facility] Work Phone: 01-11-2025 Cognitive function Voice/Name [facility] Work Phone: 12-12-2024 Because of a physica l, mental, or emotional condition, do you have serious difficulty concentrating, remembering, or making decisions No 12/12/2024 10:12 AM EDT Lizeth Jordan RN No [facility] 11-12-2023 Because of a physica l, mental, or emotional condition, do you have serious difficulty concentrating, remembering, or making decisions No 11/12/2023 3:37 PM EDT Raina Coppoal RN No [facility] 12-30-2021 Cognitive function Voice/Name [facility] Work Phone: Clinical Notes 02-15-2021 to 03-29-2025 Note Date & Type Note Facility 03-29-2025 Progress note Note Date/Time March 29, 2025 4:05pm [facility] [address] [place] [address] Progress Note - Wound Care 03/29/25 1237 MR#: [id number] Acct: [id number] Name: BERTA SANCHES Rep #:[id number] 15 : [...] months ago during a prolonged hospitalization in [place]. Bilateral foot/heel and right kaur. She has been applying Neosporin without anysignificant improvement. She reports a history of vascular surgery in [place]. Had a stent placed to an abdominal [...] Method Room Air Charges/Coding Procedures Integumentary 111xxx-113xx: 58271 Etelvina subq tissue 20 sq cm/< Physical [...] Date Recorded By Document 03/08/25 09:53 KW [id number] 03/08/25 10:07 KW Document 03/15/25 11:36 ML [id number] 03/15/25 11:44 ML Document 03/29/25 11:05 [id number] 03/29/25 11:15 03/08/25 03/15/25 03/29/25 09:53 11:36 11:05 - Today's Visit Information Type of service Follow-up Visit Follow-up Visit Follow-up Visit (Physician/KNIT GOODS MENDER (Physician/KNIT GOODS MENDER (Physician/KNIT GOODS MENDER ) ) ) Arrival Mode Ambulatory Ambulatory [...] Repositioning left heel -Description Sharp -Intensity 2 WC - Nurse 1 - General Ulcer Measurement Start: 03/08/25 09:42 Freq: Status: Active Protocol: Activity Type Activity Date Activity User E-sign Co-sign Detail Recorded Client Recorded Date Recorded By Document 03/08/25 09:53 KW [id number] 03/08/25 10:07 KW Document 03/15/25 11:36 ML [id number] 03/15/25 11:44 ML Document 03/29/25 11:15 [id number] 03/29/25 11:38 03/08/25 03/15/25 03/29/25 09:53 11:36 [...] Amt Small (1-33%) Large (67-100%) -Granulation Quality [place] -Slough/Fibrin Yes No -Necrosis Amt Small (1-33%) [...] Present (0 Small (1-33%) %) -Granulation Quality [place] -Slough/Fibrin Yes -Necrosis Amt None Present (0 [...] Recorded Date Recorded By Document 03/08/25 10:43 GM [id number] 03/08/25 10:54 GM Document 03/15/25 12:00 GM [id number] 03/15/25 12:09 GM Edit Result 03/15/25 12:00 GM (1) [id number] 03/21/25 12:09 GM Document 03/29/25 11:41 JF [id number] 03/29/25 11:46 JF (1) #2 RT HEEL [...] Date Recorded By Document 03/08/25 11:17 MT [id number] 03/08/25 11:20 MT Document 03/15/25 12:32 RB [id number] 03/15/25 12:34 RB Document 03/29/25 11:58 JF [id number] 03/29/25 12:01 JF 03/08/25 03/15/25 03/29/25 11:17 [...] if needed. This note was generated with [employer] software. It may contain incorrectwords, spelling, and punctuation that were not noted in checking the note beforesigning. 03/29/25 1605 <Electronically signed by Ebony Cerrato MD> Cosigner Signature (if applicable): CC: ~ Signed [facility] Work Phone: 1(664) 144-205809-11-2025 Progress note Author renetta Crerato [facility] Note Date/Time March 15, 2025 4:29pm [facility] [address] [place] [address] Progress Note - Wound Care 03/15/25 1309 MR#: [id number] Acct: [id number] Name: BERTA SANCHES SCOTTIE Rep #:[id number] : 1945 79 From: [...] months ago during a prolonged hospitalization in [place]. Bilateral foot/heel and right kaur. She has been applying Neosporin without anysignificant improvement. She reports a history of vascular surgery in [place]. Had a stent placed to an abdominal [...] Method Room Air Charges/Coding Procedures Integumentary 111xxx-113xx: 52268 Etelvina subq tissue 20 sq cm/< Physical [...] Date Recorded By Document 03/08/25 09:53 KW [id number] 03/08/25 10:07 KW Document 03/15/25 11:36 ML [id number] 03/15/25 11:44 ML 03/08/25 03/15/25 09:53 11:36 - Today's Visit Information Type of service Follow-up Visit Follow-up Visit (Physician/KNIT GOODS MENDER (Physician/KNIT GOODS MENDER ) ) Arrival Mode Ambulatory Ambulatory Transfer [...] Patient Pain Free? Yes Yes - Nurse 1 - General Ulcer Measurement Start: 03/08/25 09:42 Freq: Status: Active Protocol: Activity Type Activity Date Activity User E-sign Co-sign Detail Recorded Client Recorded Date Recorded By Document 03/08/25 09:53 KW [id number] 03/08/25 10:07 KW Document 03/15/25 11:36 ML [id number] 03/15/25 11:44 ML 03/08/25 03/15/25 09:53 11:36 [...] (67-100%) None Present (0 %) -Granulation Quality [place] -Necrosis Amt None Present (0 %) -Texture [...] Recorded Date Recorded By Document 03/08/25 10:43 [id number] 03/08/25 10:54 GM Document 03/15/25 12:00 [id number] 03/15/25 12:09 GM 03/08/25 03/15/25 10:43 12:00 Wound Center Nurse [...] Date Recorded By Document 03/08/25 11:17 MT [id number] 03/08/25 11:20 MT Document 03/15/25 12:32 RB [id number] 03/15/25 12:34 RB 03/08/25 03/15/25 11:17 12:32 [...] Is Patient Pain Free? Yes Yes - Visit Discharge Discharge Condition Stable [...] if needed. This note was generated with [employer] software. It may contain incorrectwords, spelling, and punctuation that were not noted in checking the note beforesigning. 03/15/258 <Electronically signed by Ebony Cerrato MD> Cosigner Signature (if applicable): CC: ~ Signed [facility] Work Phone: 1(757) 479-423309-04-2025 Progress note Author Ebony Cerrato [facility] Note Date/Time March 08, 2025 12:44pm [facility] [address] [place] [address] Progress Note - Wound Care 03/08/25 1234 MR#: [id number] Acct: [id number] Name: BERTA SANCHES Rep #:[id number] 08 : [...] months ago during a prolonged hospitalization in [place]. Bilateral foot/heel and right kaur. She has been applying Neosporin without anysignificant improvement. She reports a history of vascular surgery in [place]. Had a stent placed to an abdominal [...] Method Room Air Charges/Coding Procedures Integumentary 111xxx-113xx: 83344 Etelvina subq tissue 20 sq cm/< Physical [...] Date Recorded By Document 03/08/25 09:53 MADYSON [id number] 03/08/25 10:07 KW 03/08/25 09:53 YANY - Today's Visit Information Type of service Follow-up Visit (Physician/KNIT GOODS MENDER ) Arrival Mode Ambulatory Accompanied by Patient [...] Recorded Date Recorded By Document 03/08/25 09:53 [id number] 03/08/25 10:07 KW 03/08/25 09:53 Wound Center [...] Attached -Granulation Amt Large (67-100%) -Granulation Quality [place] -Texture (Violet-wound Skin Appearance) Assessed,Callus -Moisture (Violet-wound [...] Recorded Date Recorded By Document 03/08/25 10:43 [id number] 03/08/25 10:54 03/08/25 10:43 Wound Center Nurse [...] Patient Pain Free? Yes WC - Nurse 3 - General Ulcer D/C NN Start: 03/08/25 09:42 Freq: Status: Active Protocol: Activity Type Activity Date Activity User E-sign Co-sign Detail Recorded Client Recorded Date Recorded By Document 03/08/25 11:17 TN [id number] 03/08/25 11:20 TN 03/08/25 11:17 Wound Care Center Nurse 3 [...] if needed. This note was generated with [employer] dictation software. It may contain incorrectwords, spelling, and punctuation that were not noted in checking the note beforesigning. 03/08/25 1244 <Electronically signed by Ebony Cerrato MD> Cosigner Signature (if applicable): CC: ~ Signed [facility] Work Phone: 1(772) 740-307908-28-2025 History and physical note Author Ebony Cerrato [facility] Note Date/Time March 01, 2025 9: 58pm [facility] [address] [place] [address] H&P Exam - Wound Care 03/01/25 1249 MR#: [id number] Acct: [id number] Name: BERTA SANCHES Rep #:[id number] : 1945 79 From: Ebony collins MD PCP: Dr. Vincent Flores MD Status:REG R CR Location: ADDENDUM by Dr. Ebony Cerrato MD on 03/01/25 at 2158 Visit Charges Office Visits / Consults: 02220 OV L3 Est 20min Procedures Integumentary 111xxx-113xx: 08389 Etelvina subq tissue 20 sq cm/< 03/01/258<Electronically [...] months ago during a prolonged hospitalization in [place]. Bilateral foot/heel and right kaur. She has been applying Neosporin without anysignificant improvement. She reports a history of vascular surgery in [place]. 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 No significant tobacco use, smoked for about 6 months quit over 50 years ago. She reports a history of borderline diabetes. Currently not on medication. Appetite is fair, concern for recent significant weight loss.. Otherwise, she states that she feels well. 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 Smoking Status: Former smoker alcohol intake: [...] Start: 03/01/25 09:07 Freq: Status: Active Protocol: TOMAZS Activity Type Activity Date Activity User E-sign Co-sign Detail Recorded Client Recorded Date Recorded By Document 03/01/25 09:12 [id number] 03/01/25 09:35 03/01/25 09:12 - Today's Visit Information Type of service [...] Medication, Inactivity/ Resting Communication Assessment Preferred language Peruvian Assistant Offset Press Operator Required No Able to Read Yes Able [...] in Ability to Perform Denies Any Declines Culture/Hoahaoism/Maintenance Carpenter Cultural/Hoahaoism Needs that may affect No Treatment Plan Would you allow our hospital health care technician to No meet you for the purpose of spiritual/ emotional support? Maintenance Carpenter to contact place of baptism No WC - Nurse 1 - General Ulcer Measurement Start: 03/01/25 09:07 Freq: Status: Active Protocol: Activity Type Activity Date Activity User E-sign Co-sign Detail Recorded Client Recorded Date Recorded By Document 03/01/25 09:12 MADYSON [id number] 03/01/25 09:35 03/01/25 09:12 Wound Center Nurse 1 #3 LT HEEL -Current Size (cm) - Length 0.1 -Current Size (cm) - Width 0.4 -Current Size (cm) - Depth 0.1 -Total Square Cm 0.04 -Date of Last Picture (Recall this 03/01/25 field) -Exudate Amt Small -Exudate Type Serosanguineous -Wound Margin Thickened -Granulation Amt Small (1-33%) -Granulation Quality [place] -Necrosis Amt Large (67-100%) -Necrotic Tissue Type [...] Thickened -Granulation Amt Small (1-33%) -Granulation Quality [place] -Necrosis Amt Large (67-100%) -Necrotic Tissue Type [...] Attached -Granulation Amt Large (67-100%) -Granulation Quality [place],Red -Texture (Violet-wound Skin Appearance) Assessed -Moisture (Violet-wound [...] Recorded Date Recorded By Document 03/01/25 09:52 [id number] 03/01/25 10:09 03/01/25 09:52 Wound Center Nurse [...] Recorded Date Recorded By Document 03/01/25 10:32 TN [id number] 03/01/25 10:36 TN 03/01/25 10:32 Wound Care Center Nurse 3 [...] if needed. This note was generated with [employer] dictation software. It may contain incorrectwords, spelling, and punctuation that were not noted in checking the note beforesigning. 03/01/252156 <Electronically signed by Ebony Cerrato MD> Cosigner Signature (if applicable): CC: ~ Signed [facility] Work Phone: 1(425) 744-981308-15-2025 Radiology Diagnostic study note [facility] Imaging Services [address] [place], [place] [address] Chest PA and Lateral MR#: [id number] Acct: [id number] Name: BERTA SANCHES Rep #: [id number] : 1945 F 79 From: Tevin Chaves MD PCP: Dr. Vincent Flores MD Status: REG E R Study:Chest PA and Lateral Date of Exam: 02/16/25 Exam# [id number] Ordering Dr: Glenna Pang MD PROCEDURE: CHEST [...] arteries suggestive of pulmonary hypertension. Reading Location: [facility] CC: Dr. Magdy Pang MD; Dr. Vincent Flores MD ~ Apartment Leasing Specialist: Signed [facility]08-07-2025 Procedure [facility] [address] [place] [address] Pacemaker Check Date of Service: 02/08/251424 MR#: [id number] Acct: [id number] Name: BERTA SANCHES SCOTTIE Rep #: [id number] : 1945 From: Pau wilson Age/Sex: 79/F Location: [facility] Status: Signed Billing Codes PM Device Codes: 66335 PM Dev Prog Eval, Dual Assessment and Plan Assessment and Plan (1) Presence of Watchman left atrial appendage closure device: Status: Acute (2) Pacemaker: Status: Acute Comment: 10/21/2020 [employer] [place] XT DR TRELL Bartlett [id number] pulse generator programmed as AAIR (3) Cardiac arrhythmia: Status: Acute Qualifiers: Arrhythmia type: unspecified cardiac arrhythmia Qualified Code(s): I49.9 - Cardiac arrhythmia, unspecified 02/08/25 1426 > Date _ Pau Mccormack Signature: Date (if applicable) CC: ~ [facility]2025 Evaluation note* Diagnosis Onset Date Resolution Status Admit Date Acute mesenteric insufficiency acute February 05, 2025 8:53am Chronic kidney disease, stage 3b acute February 05, 2025 8:53am Pacemaker acute February 05 8:53am Presence of Watchman left atrial appendage closure device February 05, 2025 8:53am Pulmonary hypertension acute 2024 8:53am H/O aortic valve replacement February 05, 2025 8:53am HTN (hypertension) February 05, 2025 8:53am PAF (paroxysmal atrial [...] renal failure, stage 3 (moderate) chronic Mar emb2024 1:46pm Iron deficiency anemia due to chronic [...] chronic renal failure, stage 3 (moderate) chronic Octo maria g 21st, 2025 2:30pm Iron deficiency anemia due to [...] (paroxysmal atrial fibrillation) chronic May 10 11:22am [facility] Work Phone: 1(764) 292-508907-28-2025 Telephone encounter Note* Telephone Encounter - Irma Hwang RN - 01/29/2025 5:17 PM EDT Pharmacy electronically requests the following refill(s) Requested Prescriptions Pending Prescriptions Disp Refills simvastatin (ZOCOR) 40 mg tablet [Pharmacy Med Name: SIMVASTATIN 20 MG TAB[*]] 90 tablet 3 Sig: Take 1 tablet by mouth daily at bedtime. Irma Hwang RN [facility]07-28-2025 Miscellaneous Notes* Telephone Encounter - Irma Hwang RN - 01/29/2025 5:17 PM EDT Pharmacy electronically requests the following refill(s) Requested Prescriptions Pending Prescriptions Disp Refills simvastatin (ZOCOR) 40 mg tablet [Pharmacy Med Name: SIMVASTATIN 20 MG TAB[*]] 90 tablet 3 Sig: Take 1 tablet by mouth daily at bedtime. Irma Hwang RN [facility]25 Discharge summary [facility] Medical Records Department [address] [place] [place] [address] Instructions for Home/Discharge Instructions 01/11/25 1226 MR#: [id number] Acct: [id number] Name: BERTA SANCHES SCOTTIE Rep #:[id number] : 1945 79 From: [...] Hernandez MD [Non-Staff] - Deysi Collazo NP, CHEMICAL RESEARCH TECHNICIAN-C [Primary Care Provider] - Disposition Disposition (needs filled in before D/C Order can be placed): Home, Self Care 01/11/25 1230Dianne Stovall DO CC: CHEMICAL RESEARCH TECHNICIAN-C Deysi Collazo; Dr. Jeremy Mcgarry MD; Dr. Radha Heller MD ~ Signed [facility]07-10-2025 [facility] Progress note Author Dianne [facility] Note Date/Time January 10, 2025 6:26p m [facility] Medical Records Department [address] [place] [address] Progress Note - Hospitalist 01/10/25 1823 MR#: [id number] Acct: [id number] Name: BERTA SANCHES SCOTTIE Rep #:[id number] : 1945 79 From: Dianne Stovall DO PCP: JARROD Cantu Status:ADM I N Location: [place] [address] Reason for Visit Reason for Visit: Diagnoses [...] team: 35-minute Charges/Coding Visit Charges Inpatient E&M: 13698 Subs Hosp L2 NIHSS NIHSS Nursing Documentation NIHSS Nursing Documentation: NIHSS: Ischemic Stroke/TIA Start: 01/08/25 00:49 Freq: [id number] Status: Complete Protocol: Activity Type Activity Date Activity User E-sign Co-sign Detail Recorded Client Recorded Date Recorded By Document 01/08/25 03:22 [id number] 01/08/25 03:24 RM 01/08/25 03:22 NIH Stroke [...] and with change in RN caregiver. Freq: [id number] Protocol: Activity Type Activity Date Activity User E-sign Co-sign Detail Recorded Client Recorded Date Recorded By Document 01/08/25 12:00 [id number] 01/08/25 12:10 [id number] 01/08/25 12:00 NIH Stroke Scale [NIHSS] A [...] Cosigner Signature (if applicable): CC: ~ Signed [facility] Work Phone: 1(202) 911-507907-09-2025 Progress note [facility] Medical Records Department [address] [place] [address] Progress Note - Hospitalist 01/10/25 182 MR#: [id number] Acct: [id number] Name: BERTA SANCHES SCOTTIE Rep #:[id number] : 1945 79 From: Dianne Stovall DO PCP: JARROD Cantu Status:ADM I N Location: [place] [address] Reason for Visit Reason for Visit: Diagnoses [...] team: 35-minute Charges/Coding Visit Charges Inpatient E&M: 47476 Subs Hosp L2 NIHSS NIHSS Nursing Documentation NIHSS Nursing Documentation: NIHSS: Ischemic Stroke/TIA Start: 01/08/25 00:49 Freq: [id number] Status: Complete Protocol: Activity Type Activity Date Activity User E-sign Co-sign Detail Recorded Client Recorded Date Recorded By Document 01/08/25 03:22 [id number] 01/08/25 03:24 01/08/25 03:22 NIH Stroke Scale [...] and with change in RN caregiver. Freq: [id number] Protocol: Activity Type Activity Date Activity User E-sign Co-sign Detail Recorded Client Recorded Date Recorded By Document 01/08/25 12:00 [id number] 01/08/25 12:10 01/08/25 12:00 NIH Stroke Scale [...] Cosigner Signature (if applicable): CC: ~ Signed [facility]07-09-2025 Progress note Author Jeremy Mcgarry [facility] Note Date/Time January 10, 2025 11:52 am [facility] Medical Records Department [address] [place] [address] Progress Note - Nephrology 01/10/25 1150 MR#: [id number] Acct: [id number] Name: BERTA SANCHES Rep #:[id number] : 1945 79 From: Jeremy ferris MD PCP: JARROD Cantu Status:ADM I N Location: [place] [address] Subjective Subjective No new complaints today Objective [...] disease, stage 3b: PLAN: Reviewed records from [facility] where her primary care physician is, from care everywhere from [facility] During her hospitalization in October,[facility] where she was admitted in December. She [...] thrombosis/stenosis, had stents placed in [facility]. She also has left-sided renal artery [...] Cosigner Signature (if applicable): CC: ~ Signed [facility] Work Phone: 1(123) 224-216907-09-2025 Progress note [facility] Medical Records Department [address] [place] [address] Progress Note - Nephrology 01/10/25 1150 MR#: [id number] Acct: [id number] Name: BERTA SANCHES SCOTTIE Rep #:[id number] : 1945 79 From: Jeremy ferris MD PCP: JARROD Cantu Status:ADM I N Location: [place] [address] Subjective Subjective No new complaints today Objective [...] disease, stage 3b: PLAN: Reviewed records from [facility] where her primary care physician is, from care everywhere from [facility] During her hospitalization in October,[facility] where she was admitted [facility]. She has had unfortunately 3 [...] thrombosis/stenosis, had stents placed in [facility]. She also has left-sided renal artery [...] Cosigner Signature (if applicable): CC: ~ Signed [facility]07-08-2025 Progress note Author Dianne Stovall [facility] Note Date/Time January 09, 2025 2:38p m [facility] Medical Records Department [address] [place] [address] Progress Note - Hospitalist 01/08/25 1849 MR#: [id number] Acct: [id number] Name: BERTA SANCHES SCOTTIE Rep #:[id number] : 1945 79 From: Dianne Stovall DO PCP: JARROD Cantu Status:ADM I N Location: [place] [address] Reason for Visit Reason for Visit: Diagnoses [...] for this. Patient was also hospitalized recently [facility] for congestive heart failure. Patient told me she wanted to change endodontic assistant, I made her an appointment to follow-up [...] % (Auto) 47.3, Lymph % (Auto) 33.8, Harvey % (Auto) 15.5 H, Eos % (Auto) [...] to call report. 11:17 p.m. Reading [facility] Head/Neck CTA 01/07/25 23:08 IMPRESSION: BILATERAL CALCIFIC PLAQUE, PRIMARILY AT THE BIFURCATION BILATERALLY LESS THAN 50% STENOSIS. OCCASIONALLY OTHER PLAQUES ARE SEEN BUT NON FLOW LIMITING. NO LARGE VESSEL OCCLUSION. Requested contact with the referring physician at 11:55 p.m. verbal report to charge nurse Melida at 12:05 a.mCoty Reading Location: [facility] Carotid Duplex 01/08/25 05:04 Interpretation [...] NIHSS: Ischemic Stroke/TIA Start: 01/08/25 00:49 Freq: [id number] Status: Complete Protocol: Activity Type Activity Date Activity User E-sign Co-sign Detail Recorded Client Recorded Date Recorded By Document 01/08/25 03:22 [id number] 01/08/25 03:24 01/08/25 03:22 NIH Stroke Scale [...] and with change in RN caregiver. Freq: [id number] Protocol: Activity Type Activity Date Activity User E-sign Co-sign Detail Recorded Client Recorded Date Recorded By Document 01/08/25 12:00 [id number] 01/08/25 12:10 01/08/25 12:00 NIH Stroke Scale [...] team: 35 minutes Visit Charges Inpatient E&M: 26757 Subs Hosp L2 01/09/25 1438<Electronically signed by Dianne Stovall DO> Cosigner Signature (if applicable): cc: ~* Signed [facility] Work Phone: 1(941) 134-885307-08-2025 Progress note Author Dianne Stovall [facility] Note Date/Time January 09, 2025 2:37p [facility] Medical Records Department [address] [place] [address] Progress Note - Hospitalist 01/09/25 1434 MR#: [id number] Acct: [id number] Name: BERTA SANCHES SCOTTIE Rep #:[id number] : 1945 79 From: Dianne Stovall DO PCP: JARROD Cantu Status:ADM I N Location: [place] [address] Reason for Visit Reason for Visit: Diagnoses [...] 35 minutes Charges/Coding Visit Charges Inpatient E&M: 56170 Subs Hosp L2 NIHSS NIHSS Nursing Documentation NIHSS Nursing Documentation: NIHSS: Ischemic Stroke/TIA Start: 01/08/25 00:49 Freq: [id number] Status: Complete Protocol: Activity Type Activity Date Activity User E-sign Co-sign Detail Recorded Client Recorded Date Recorded By Document 01/08/25 03:22 [id number] 01/08/25 03:24 01/08/25 03:22 NIH Stroke Scale [...] and with change in RN caregiver. Freq: I7NHYKW Protocol: Activity Type Activity Date Activity User E-sign Co-sign Detail Recorded Client Recorded Date Recorded By Document 01/08/25 12:00 [id number] 01/08/25 12:10 01/08/25 12:00 NIH Stroke Scale [...] Cosigner Signature (if applicable): CC: ~ Signed [facility] Work Phone: 1(664) 249-479107-08-2025 Progress note [facility] Medical Records Department [address] [place] [address] Progress Note - Hospitalist 01/08/25 1849 MR#: [id number] Acct: [id number] Name: BERTA SANCHES SCOTTIE Rep #:[id number] : 1945 79 From: Dianne Stovall DO PCP: JARROD Cantu Status:ADM I N Location: [place] [address] Reason for Visit Reason for Visit: Diagnoses [...] intervention for this. Patient was also hospitalized [facility] for congestive heart failure. Patient told me she wanted to change endodontic assistant, I made her an appointment to follow-up [...] % (Auto) 47.3, Lymph % (Auto) 33.8, Harvey % (Auto) 15.5 H, Eos % (Auto) [...] to call report. 11:17 p.m. Reading [facility] Head/Neck CTA 01/07/25 23:08 IMPRESSION: BILATERAL CALCIFIC PLAQUE, PRIMARILY AT THE BIFURCATION BILATERALLY LESS THAN 50% STENOSIS. OCCASIONALLY OTHER PLAQUES ARE SEEN BUT NON FLOW LIMITING. NO LARGE VESSEL OCCLUSION. Requested contact with the referring physician at 11:55 p.m. verbal report to charge nurse Melida at12:05 a.m. Reading Location[facility] Carotid Duplex 01/08/25 05:04 Interpretation Summary [...] NIHSS: Ischemic Stroke/TIA Start: 01/08/25 00:49 Freq: [id number] Status: Complete Protocol: Activity Type Activity Date Activity User E-sign Co-sign Detail Recorded Client Recorded Date Recorded By Document 01/08/25 03:22 [id number] 01/08/25 03:24 01/08/25 03:22 NIH Stroke Scale [...] and with change in RN caregiver. Freq: [id number] Protocol: Activity Type Activity Date Activity User E-sign Co-sign Detail Recorded Client Recorded Date Recorded By Document 01/08/25 12:00 [id number] 01/08/25 12:10 01/08/25 12:00 NIH Stroke Scale [...] team: 35 minutes Visit Charges Inpatient E&M: 63797 Subs Hosp L2 01/09/25 1438 Cosigner Signature (if applicable): cc: ~* Signed [facility]07-08-2025 Progress note [facility] Medical Records Department [address] [place] [address] Progress Note - Hospitalist 01/09/25 1434 MR#: [id number] Acct: [id number] Name: BERTA SANCHES SCOTTIE Rep #:[id number] : 1945 79 From: Dianne Stovall DO PCP: JARROD Cantu Status:ADM I N Location: [place] [address] Reason for Visit Reason for Visit: Diagnoses [...] 35 minutes Charges/Coding Visit Charges Inpatient E&M: 13818 Subs Hosp L2 NIHSS NIHSS Nursing Documentation NIHSS Nursing Documentation: NIHSS: Ischemic Stroke/TIA Start: 01/08/25 00:49 Freq: [id number] Status: Complete Protocol: Activity Type Activity Date Activity User E-sign Co-sign Detail Recorded Client Recorded Date Recorded By Document 01/08/25 03:22 [id number] 01/08/25 03:24 01/08/25 03:22 NIH Stroke Scale [...] and with change in RN caregiver. Freq: [id number] Protocol: Activity Type Activity Date Activity User E-sign Co-sign Detail Recorded Client Recorded Date Recorded By Document 01/08/25 12:00 [id number] 01/08/25 12:10 01/08/25 12:00 NIH Stroke Scale [...] Cosigner Signature (if applicable): CC: ~ Signed [facility]07-08-2025 Progress note Author Jeremy Mcgarry [facility] Note Date/Time January 09, 2025 12:22 pm [facility] Medical Records Department [address] [place] [address] Progress Note 01/09/25 1221 MR#: [id number] Acct: [id number] Name: BERTA SANCHES SCOTTIE Rep #:[id number] : 1945 79 From: Jeremy ferris MD PCP: JARROD Cantu Status:ADM I N Location: [place] [address] Progress Note patient was in bathroom today [...] Cosigner Signature (if applicable): CC: ~ Signed [facility] Work Phone: 1(804) 790-712907-08-2025 Progress note [facility] Medical Records Department [address] [place] [address] Progress Note 01/09/25 1221 MR#: [id number] Acct: [id number] Name: BERTA SANCHES Rep #:[id number] : 1945 79 From: Jeremy ferris MD PCP: Deysi Collazo NP-C Status:ADM I N Location: [place] [address] Progress Note patient was in bathroom today could not examine labs reviewed cr stable plan continue lasix drip till closer to dry weight at dc add bumex 2 mg BID/lasix 80 mg BID continue aldactone metolazone 5 mg as needed KCL 20 meq daily will arrange follow up after dc 01/09/25 1222 Jeremy Mcgarry MD Cosigner Signature (if applicable): CC: ~ Signed [facility]07-08-2025 Discharge summary Author Dianne [facility] Note Date/Time January 09, 2025 9:02a m [facility] Medical Records Department [address] [place] [address] Instructions for Home/Discharge Instructions 01/08/25 1536 MR#: [id number] Acct: [id number] Name: BERTA SANCHES Rep #:[id number] : [...] Mars Hernandez MD [Non-Staff] - Deysi Collazo CHEMICAL RESEARCH TECHNICIAN, CHEMICAL RESEARCH TECHNICIAN-C [Primary Care Provider] - Disposition Disposition (needs filled in before D/C Order can be placed): Home, Self Care 01/09/25 0902<Electronically signed by Dianne Stovall DO>Dianne Stovall DO CC: Josefina Arrieta; Chelsi Pulido; JARROD Copeagen; Jonathan Funez; Charley Berger MD; Yamileth Hassan [...] Gates DO; Jessa Lee MD ~ Signed [facility] Work Phone: 1(706) 623-828807-08-2025 Discharge summary [facility] Medical Records Department [address] [place] [address] Instructions for Home/Discharge Instructions 01/08/25 1536 MR#: [id number] Acct: [id number] Name: BERTA SANCHES Rep #:[id number] : [...] Hernandez MD [Non-Staff] - Deysi Collazo NP, CHEMICAL RESEARCH TECHNICIAN-C [Primary Care Provider] - Disposition Disposition (needs filled in before D/C Order can be placed): Home, Self Care 01/09/25 0902Claryville Tereletsky DO CC: Josefina Arrieta; Chelsi Pulido; CHEMICAL RESEARCH TECHNICIAN-C Deysi Collazo; Jonathan Funez; Charley Berger MD; [...] Gates DO; Jessa Lee MD ~ Signed [facility]07-07-2025 Consult note Author Jeremy Mcgarry [facility] Note Date/Time January 08, 2025 5:03p m [facility] Medical Records Department [address] [place] [address] Consultation - Nephrology 01/08/25 1655 MR#: [id number] Acct: [id number] Name: BERTA SANCHES Rep #:[id number] : 1945 79 From: Jeremy ferris MD PCP: JARROD Cantu Status:ADM I N Location: [place] [address] Assessment & Plan Assessment/Plan (1) Chronic kidney disease, stage 3b: PLAN: Reviewed records from [facility] where her primary care physician is, from care everywhere from [facility] During her hospitalization in October,[facility] where she was admitted in December. She [...] their insurance company about the alternatives for Zhanega including Jardiance/Steglatro. If any of them is [...] thrombosis/stenosis, had stents placed in [facility]. She also has left-sided renal artery [...] complicated course recently. She is originally from [place], was in [place] for the winter, had a long hospitalization in [facility]. History of congestive heart failure with diastolic dysfunction, BNP has been consistently high. Was seeing cardiology at [facility]. Has been on diuretic, despite that worsening heart failure. Apparently gained more than 10 pounds. Baseline weight is around 140 pounds, went up to 154 pounds. Being started on Lasix drip. [facility] Medical History (Updated 01/08/25 @ [...] % (Auto) 47.3, Lymph % (Auto) 33.8, Harvey % (Auto) 15.5 H, Eos % (Auto) [...] mmHg. Ordering Physician: Radha Heller Performed By: Brodwolf, Edy, RCS Brain CT 01/07/25 22:53 IMPRESSION: No intra-axial or extra-axial hemorrhage. No acute process. Age-related changes of involution and chronic small-vessel ischemic disease Navigator to call report. 11:17 p.m. Reading Location: [facility] Head/Neck CTA 01/07/25 23:08 IMPRESSION: BILATERAL CALCIFIC PLAQUE, PRIMARILY AT THE BIFURCATION BILATERALLY LESS THAN 50% STENOSIS. OCCASIONALLY OTHER PLAQUES ARE SEEN BUT NON FLOW LIMITING. NO LARGE VESSEL OCCLUSION. Requested contact with the referring physician at 11:55 p.m. verbal report to charge nurse Melida at 12:05 a.m. Reading Location: [facility] Carotid Duplex 01/08/25 05:04 Interpretation Summary Mild (<50%) stenosis right extracranial internal carotid. Mild (<50%) stenosis left extracranial internal carotid. Patent and antegrade vertebrals bilaterally. Ordering Physician: Carla Ha Referring Physician: Deysi Collazo Performed By: Sony Perez RVT 01/08/25 1703 <Electronically signed by Jeremy Mcgarry MD> Cosigner Signature (if applicable): CC: JARROD Collazo~ Signed [facility] Work Phone: 1(753) 545-410907-07-2025 Progress note Author Noris Brock [facility] Note Date/Time January 08, 2025 3:23p m [facility] Medical Records Department [address] [place] [address] Progress Note - Neurology 01/08/25 1514 MR#: [id number] Acct: [id number] Name: BERTA SANCHES Rep #:[id number] : 1945 79 From: Noris Brock MD PCP: HOWARD CantuC Status:ADM I N Location: [place] [address] Objective Data Objective Data Vital Signs: Vital [...] % (Auto) 47.3, Lymph % (Auto) 33.8, Harvey % (Auto) 15.5 H, Eos % (Auto) [...] to call report. 11:17 p.m. Reading Location[facility] Head/Neck CTA 01/07/25 23:08 IMPRESSION: BILATERAL CALCIFIC PLAQUE, PRIMARILY AT THE BIFURCATION BILATERALLY LESS THAN 50% STENOSIS. OCCASIONALLY OTHER PLAQUES ARE SEEN BUT NON FLOW LIMITING. NO LARGE VESSEL OCCLUSION. Requested contact with the referring physician at 11:55 p.m. verbal report to charge nurse Vroa at 12:05 a.m. Reading Location: [facility] Carotid Duplex 01/08/25 05:04 Interpretation Summary Mild [...] NIHSS: Ischemic Stroke/TIA Start: 01/08/25 00:49 Freq: [id number] Status: Complete Protocol: Activity Type Activity Date Activity User E-sign Co-sign Detail Recorded Client Recorded Date Recorded By Document 01/08/25 03:22 [id number] 01/08/25 03:24 01/08/25 03:22 NIH Stroke Scale [...] and with change in RN caregiver. Freq: S4YOIRC Protocol: Activity Type Activity Date Activity User E-sign Co-sign Detail Recorded Client Recorded Date Recorded By Document 01/08/25 12:00 [id number] 01/08/25 12:10 01/08/25 12:00 NIH Stroke Scale [...] Cosigner Signature (if applicable): CC: ~ Signed [facility] Work Phone: 1(468) 526-625207-07-2025 Consult note [facility] Medical Records Department [address] [place] [address] Consultation - Nephrology 01/08/25 1655 MR#: [id number] Acct: [id number] Name: BERTA SANCHES SCOTTIE Rep #:[id number] : 1945 79 From: Jeremy ferris MD PCP: JARROD Cantu Status:ADM I N Location: [place] [id number] Assessment & Plan Assessment/Plan (1) Chronic kidney disease, stage 3b: PLAN: Reviewed records from [facility] where her primary care physician is, from care everywhere from [facility] During her hospitalization in October,[facility] where she was admitted [facility]. She has had unfortunately 3 [...] thrombosis/stenosis, had stents placed in [facility]. She also has left-sided renal artery [...] complicated course recently. She is originally from [place], was in [place] for the winter, had a long hospitalization in [facility]. History of congestive heart failure with diastolic dysfunction, BNP has been consistently high. Wasseeing cardiology at [facility]. Has been on diuretic, despite that worsening heart failure. Apparently gained more than 10 pounds. Baseline weight is around 140 pounds, went up to 154 pounds. Being started on Lasix drip. [facility] Medical History (Updated 01/08/25 @ [...] % (Auto) 47.3, Lymph % (Auto) 33.8, Harvey % (Auto) 15.5 H, Eos % (Auto) [...] report. 11:17 p.m. Reading Location: [facility] Head/Neck CTA 01/07/25 23:08 IMPRESSION: BILATERAL CALCIFIC PLAQUE, PRIMARILY AT THE BIFURCATION BILATERALLY LESS THAN 50% STENOSIS. OCCASIONALLY OTHER PLAQUES ARE SEEN BUT NON FLOW LIMITING. NO LARGE VESSEL OCCLUSION. Requested contact with the referring physician at 11:55 p.m. verbal report to charge nurse Melida at12:05 a.m. Reading Location: [facility] Carotid Duplex 01/08/25 05:04 Interpretation Summary Mild (<50%) stenosis right extracranial internal carotid. Mild (<50%) stenosis left extracranial internal carotid. Patent and antegrade vertebrals bilaterally. Ordering Physician: Carla Ha Referring Physician: Deysi Collazo Performed By: Sony Perez RVT 01/08/25 1703 Cosigner Signature (if applicable): CC: CHEMICAL RESEARCH TECHNICIAN-C Deysi Collazo~ Signed [facility]07-07-2025 Progress note [facility] Medical Records Department [address] [place] [address] Progress Note - Neurology 01/08/25 1514 MR#: [id number] Acct: [id number] Name: BERTA SANCHES Rep #:[id number] : 1945 79 From: Noris Brock MD PCP: JARROD Cantu Status:ADM I N Location: [place] [address] Objective Data Objective Data Vital Signs: Vital [...] % (Auto) 47.3, Lymph % (Auto) 33.8, Harvey % (Auto) 15.5 H, Eos % (Auto) [...] report. 11:17 p.m. Reading Location: [facility] Head/Neck CTA 01/07/25 23:08 IMPRESSION: BILATERAL CALCIFIC PLAQUE, PRIMARILY AT THE BIFURCATION BILATERALLY LESS THAN 50% STENOSIS. OCCASIONALLY OTHER PLAQUES ARE SEEN BUT NON FLOW LIMITING. NO LARGE VESSEL OCCLUSION. Requested contact with the referring physician at 11:55 p.m. verbal report to charge nurse Melida at12:05 a.m. Reading Location: [facility] Carotid Duplex 01/08/25 05:04 Interpretation [...] NIHSS: Ischemic Stroke/TIA Start: 01/08/25 00:49 Freq: [id number] Status: Complete Protocol: Activity Type Activity Date Activity User E-sign Co-sign Detail Recorded Client Recorded Date Recorded By Document 01/08/25 03:22 [id number] 01/08/25 03:24 01/08/25 03:22 NIH Stroke Scale [...] and with change in RN caregiver. Freq: S7PQNPM Protocol: Activity Type Activity Date Activity User E-sign Co-sign Detail Recorded Client Recorded Date Recorded By Document 01/08/25 12:00 [id number] 01/08/25 12:10 01/08/25 12:00 NIH Stroke Scale [...] Cosigner Signature (if applicable): CC: ~ Signed [facility]07-07-2025 Progress note Author Carla Barksdale [facility] Note Date/Time January 08, 2025 1:58a m [facility] Medical Records Department [address] [place] [address] Progress Note - Hospitalist 01/07/25 0572 MR#: [id number] Acct: [id number] Name: TAMERA SANCHESRA RUBIN Rep #:[id number] : 1945 79 From: Carla Rashid DO PCP: Deysi Collazo NP-C Status:ADM I N Location: [place] [address] Hospitalist Note Stroke alert was called overhead [...] in 24 hours as per neurology recommendations. EQUIPMENT OILER was updated with plan. [facility] Imaging Services [address] [place] [address] [id number] STROKE Brain/Head without Cont MR#: [id number] Acct: [id number] Name: BERTA SANCHES SCOTTIE Rep #: [id number] : 1945 F 79 From: Jonathan Paul DO PCP: JARROD Cantu Status: ADM IN Study: STROKE Brain/Head without Cont Date of Exam: 01/07/25 Exam# [id number] Ordering Dr: Carla Ha DO PROCEDURE: STROKE [...] to call report. 11:17 p.m. Reading Location: [facility] CC: JARROD Collazo; Dr. Carla Ha DO ~ Apartment Leasing Specialist: Signed ----- [facility] Imaging Services [address] [place] [address] 514321 STROKE CTA Head AND Neck W/Con MR#: [id number] Acct: [id number] Name: BERTA SANCHES Rep #: [id number] : 1945 F 79 From: Jonathan Paul DO PCP: JARROD Cantu Status: ADM IN Study: STROKE CTA Head AND Neck W/Con Date of Exam: 01/07/25 Exam# [id number] Ordering Dr: Carla Ha DO PROCEDURE: STROKE [...] nurse Melida at 12:05 a.m. Reading Location: [facility] CC: JARROD Collazo; Dr. Carla Ha DO ~ Apartment Leasing Specialist: Signed 01/08/25 0158 <Electronically signed by Carla Ha DO> Cosigner Signature (if applicable): CC: ~ Signed [facility] Work Phone: 1(754) 636-716807-07-2025 Progress note [facility] Medical Records Department [address] [place] [address] Progress Note - Hospitalist 01/07/25 2335 MR#: [id number] Acct: [id number] Name: BERTA SANCHES SCOTTIE Rep #:[id number] : 1945 79 From: Carla Rashid DO PCP: HOWARD CantuC Status:ADM I N Location: [place] [address] Hospitalist Note Stroke alert was called overhead [...] neurologic insult. She has a pacemaker in [facility] and an investigation will be made to see if it is MRI compatible. She will undergo MRI of the brain without contrast in the morning if her pacemaker is compatible. If not she will repeat her head CT in 24 hours as per neurology recommendations. EQUIPMENT OILER was updated with plan. [facility] Imaging Services [address] [place] [address] STROKE Brain/Head without Cont MR#: [id number] Acct: [id number] Name: BERTA SANCHES SCOTTIE Rep #: [id number] : 1945 F 79 From: Jonathan Paul DO PCP: JARROD Cantu Status: ADM IN Study: STROKE Brain/Head without Cont Date of Exam: 01/07/25 Exam# [id number] Ordering Dr: Carla Ha DO PROCEDURE: STROKE [...] to call report. 11:17 p.m. Reading Location: [facility] CC: JARROD Collazo; Dr. Carla Ha DO ~ Apartment Leasing Specialist: Signed [facility] Imaging Services [address] [place] [address] STROKE CTA Head AND Neck W/Con MR#: [id number] Acct: [id number] Name: BERTA SANCHES SCOTTIE Rep #: [id number] : 1945 F 79 From: Jonathan Paul DO PCP: JARROD Cantu Status: ADM IN Study: STROKE CTA Head AND Neck W/Con Date of Exam: 01/07/25 Exam# [id number] Ordering Dr: Carla Ha DO PROCEDURE: STROKE [...] charge nurse Melida at12:05 a.m. Reading Location: [facility] CC: JARROD Collazo; Dr. Carla Ha DO ~ Apartment Leasing Specialist: Signed 01/08/25 0158 Cosigner Signature (if applicable): CC: ~ Signed [facility]07-07-2025 Radiology Diagnostic study note [facility] Imaging Services [address] [place] [address] STROKE CTA Head AND Neck W/Con MR#: [id number] Acct: [id number] Name: BERTA SANCHES Rep #: [id number] : 1945 F 79 From: Pet er Peer DO PCP: JARROD Cantu Status: ADM I N Study:STROKE CTA Head AND Neck W/Con Date of Exam: 01/07/25 Exam# [id number] Ordering Dr: Carla [place] DO PROCEDURE: STROKE [...] charge nurse Melida at12:05 a.m. Reading Location: [facility] CC: JARROD Collazo; Dr. Carla Ha DO ~ Apartment Leasing Specialist: Signed [facility]07-06-2025 Radiology Diagnostic study note [facility] Imaging Services [address] [place], [place] [id number] STROKE Brain/Head without Cont MR#: [id number] Acct: [id number] Name: BERTA SANCHES SCOTTIE Rep #: [id number] : 1945 F 79 From: Pet er Humberto CURRY PCP: JARROD Cantu Status: ADM I N Study:STROKE Brain/Head without Cont Date of Exam: 01/07/25 Exam# [id number] Ordering Dr: Carla [place] DO PROCEDURE: STROKE [...] to call report. 11:17 p.m. Reading Location: [facility] CC: JARROD Collazo; Dr. Carla Ha, DO ~ Apartment Leasing Specialist: Signed [facility]07-06-2025 Discharge summary Author Sheree Simmons [facility] Note Date/Time January 07, 2025 5:04p m [facility] Medical Records Department [address] [place] [address] Emergency Department Summary 01/07/25 MR#: [id number] Acct: [id number] Name: BERTA SANCHES Rep #:[id number] : 1945 79 From: Sheree KING PCP: JARROD Cantu Status:ADM I N Location: [place] [address] HPI <FERNANDO Uriostegui - Last Filed: 01/07/25 [...] in September 2023 she had surgery in [place] for some type of intra-abdominal artery blockage and was started on Plavix in addition to her baseline aspirin 81 mg. She states she was also having issues with her congestive heart failure. She came home at the end of October and has been taking her normal Lasix 40 mg twice daily and spironolactone 12.5 mg twice daily without improvement. She saw her [facility] clinic endodontic assistant Dr. Burdick on January 01. He changed [...] is from allergies but no significant cough. [facility] <FERNANDO Uriostegui - Last Filed: 01/07/25 16:48> [facility] Medical History (Updated 01/07/25 @ [...] <FERNANDO Uriostegui - Last Filed: 01/07/25 16:48> [facility] Narrative Medical decision making narrative: History [...] dose of Lasix as instructed by her endodontic assistant without improvement. She is awake alertno distress. [...] heart failure. 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 She was hospitalized for 23days. She is followed by endodontic assistant through the [facility]. She statesshe has difficulty contacting him and seeing him. She was offered option to follow-up with endodontic assistant in [place]. Patient denies fever, chills night sweats. Patient [...] % (Auto) 59.8 Lymph % (Auto) 24.2 Harvey % (Auto) 12.9 H Eos % (Auto) [...] Hr 68 H* [place] [address] H Radiography Diagnostic Testing: Clinical Impression(s) from Imaging Studies Chest X-Ray 01/07/25 13:19 IMPRESSION: Findings consistent with mild congestive heart failure. Reading Location: [facility] ED attending interpretation of 2 view chest x-ray shows mild congestive heart failure. EKG Initial EKG: Attestation: I personally reviewed and interpreted this EKG as follows: Interpretation: No Acute Injury Pattern and Atrial Fibrillation Comments: Atrial fibrillation at 77 bpm, occasional ventricular paced complexes Left anterior fascicular block Nonspecific ST changes, no STEMI <Dr. Luis Armando Harry MD - Last Filed: 01/07/25 17:04> [facility] Narrative Medical decision making narrative: History gathered from: Patient and spouse 79-year-old female presents with several weeks of dyspnea and bilateral lower extremity edema. She has had tight swelling from both thighs and down for several weeks. Over the last 5 days she has been taking an increased dose of Lasix as instructed by her endodontic assistant without improvement. She is awake alertno distress. [...] heart failure. 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 She was hospitalized for 23days. She is followed by endodontic assistant through the [facility]. She statesshe has difficulty contacting him and seeing him. She was offered option to follow-up with endodontic assistant in [place]. Patient denies fever, chills night sweats. Patient [...] % (Auto) 59.8 Lymph % (Auto) 24.2 Harvey % (Auto) 12.9 H Eos % (Auto) [...] Hr 68 [place]* [place] [address] H Radiography Diagnostic Testing: Clinical Impression(s) from Imaging Studies Chest X-Ray 01/07/25 13:19 IMPRESSION: Findings consistent with mild congestive heart failure. Reading Location: [facility] Management Discussion w/another healthcare provider: Hospitalist (Documented [...] your Primary Care Provider. Call [facility] ([phone]) or report to the closest Emergency Room. Call 911 if necessary. 01/07/25 1648 <Electronically signed by Sheree KING> Cosigner Signature (if applicable): 01/07/25 1704 <Electronically signed by Romel UGARTE> CC: JARROD Collazo ~ Signed [facility] Work Phone: 1(595) 332-537507-06-2025 History and physical note Author Radha Heller [facility] Note Date/Time January 07, 2025 4:35p m [facility] Medical Records Department [address] [place] [address] H&P Exam - Hospitalist 01/07/25 1629 MR#: [id number] Acct: [id number] Name: VERÓNICA,BERTA JO Rep #:[id number] : 1945 79 From: Radha Heller MD PCP: Deysi Collazo, CHEMICAL RESEARCH TECHNICIAN-C Status:REG E R Location: ED HPI - General General Date of Admission: 01/07/25 Date of Service: 01/07/25 Chief Complaint: Increased shortness of breath and swelling HPI Narrative BERTA SANCHES, is a 79-year-old female history of hypertension, diabetes, pacemaker, AV replacement, A-fib status post Watchman device, congestive heart failure presented [facility] ED 01/07/2025 with several weeks of shortness of breath and bilateral lower extremity edema. Reportedly in September 2023 she had surgery in [place] for some kind of intra-abdominal artery blockageand was placed on Plavix and aspirin and was having difficulties with her heart failure at that time. She came home at the end of October and has been taking herLasix 40 twice daily and spironolactone 12.5 mg twice daily without improvement. She recently followed with her [facility] endodontic assistant with increase in her Lasix by mouth [...] bowel or bladder changes. ROS otherwise negative [facility] Medical History Anxiety Brain aneurysm [...] % (Auto) 59.8, Lymph % (Auto) 24.2, Harvey % (Auto) 12.9 H, Eos % (Auto) [...] Sens 71 H*, [place] [address] H 01/07/25 14:54: Troponin T Hi Sens 2 Hr 68 H* Imaging Radiology Impression Chest X-Ray 01/07/25 13:19 IMPRESSION: Findings consistent with mild congestive heart failure. Reading Location: [id number] Assessment & Plan Assessment/Plan (1) CHF exacerbation: [...] Heller MD Charges/Coding Visit Charges Inpatient E&M: 54467 Init Hosp L2 01/07/25 1634 <Electronically signed by Radha Heller MD> Cosigner Signature (if applicable): CC: JARROD Collazo; Dr. Radha Heller MD~ Signed [facility] Work Phone: 1(720) 984-782607-06-2025 Evaluation note* Diagnosis Onset Date Resolution Status Admit Date MONIQUE (acute kidney injury) acute January 07, 2025 4:29pm CHF exacerbation acute January 4:29pm Chronic kidney disease, stage 3b acu te January 07, 2025 4:29pm [facility] Work Phone: 1(509) 124-965307-06-2025 Evaluation note* Diagnosis Onset Date Resolution Status Admit Date Chronic kidney disease, stage 3b acu te January 07, 2025 4:29pm MONIQUE (acute kidney injury) inactive January 07, 2025 4:29pm CHF exacerbation inactive January 4:29pm [facility] Work Phone: 1(915) 383-355307-06-2025 Evaluation note* Diagnosis Onset Date Resolution Status Admit Date Chronic kidney disease, stag e 3b acute January 07, 2025 4 :29pm MONIQUE (acute kidney injury) inactive January 07, 2025 4:29pm CHF exacerbation inactive January 4:29pm Chronic renal failure (CRF), stage 3b acute February 05, 2025 8:53am [facility] Work Phone: 1(450) 147-516107-06-2025 Evaluation note* Diagnosis Onset Date Resolution Status [...] atrial fibrillation) chronic February 05, 2025 8:53am [facility] Work Phone: [phone] 610-646907-06-2025 Evaluation note* Diagnosis Onset Date Resolution Status [...] closure device acute February 08, 2025 9:56am [facility] Work Phone: 1([phone]) 258-944507-06-2025 Evaluation note* Diagnosis Onset Date Resolution Status [...] March 012024 8:49am 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 (peripheral artery disease) 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 01, 2025 8:49am PAF (paroxysmal atrial fibrillation) chronic March 01 8:49am [facility] Work Phone: 1([phone]) [phone] Evaluation note* Diagnosis Onset Date Resolution Status [...] kidney disease, stage 3b acute March 08, 8:57am Type 2 diabetes mellitus acute March 08, 2025 8:57am Ulcer of left foot with fat layer exposed acute March 08, 025 8:57am Ulcer of right foot with fat layer exposed acute March 08, 8:57am Ulcer of right lower extremity with fat layer exposed acute March 08, 8:57am PAD (peripheral artery disease) chronic March 08, 8:57am PAF (paroxysmal atrial fibrillation) chronic March 08, 8:57am Anemia noneactive March 13, 2025 1:46pm [facility] Work Phone: 1([phone]) [phone] Evaluation note* Diagnosis Onset Date Resolution Status [...] atrial fibrillation) chronic March 15, 2025 11:00am [facility] Work Phone: [phone]) 188-760807-06-2025 Evaluation note* Diagnosis Onset Date Resolution Status [...] atrial fibrillation) chronic March 29, 2025 11:00am [facility] Work Phone: [phone]) [phone] Evaluation note* Diagnosis Onset Date Resolution Status [...] (paroxysmal atrial fibrillation) chronic April 05 10:53am [facility] Work Phone: 1(852) 350-670907-06-2025 Discharge summary [facility] Medical Records Department [address] [place] [address] Emergency Department Summary 01/07/25 MR#: [id number] Acct: [id number] Name: BERTA SANCHES Rep #:[id number] : 1945 79 From: Sheree KING PCP: Deysi Collazo, CHEMICAL RESEARCH TECHNICIAN-C Status:ADM I N Location: [place] [address] HPI History of Present Illness Chief Complaint: [...] in September 2023 she had surgery in [place] for some type of intra-abdominal artery blockage and was started on Plavix in addition to her baseline aspirin 81 mg. She states she was also having issues with her congestive heart failure. She came home atthe end of October and has been taking her normal Lasix 40 mg twice daily and spironolactone 12.5 mg t wice daily without improvement. She saw her [facility] clinic endodontic assistant Dr. Burdick on January 01. He changed [...] is from allergies but no significant cough. [facility] Medical History (Updated 01/07/25 @ 17:04 by [...] dose of Lasix as instructed by her endodontic assistant without improvement. She is awake alertno distress. [...] heart failure. 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 She was hospitalized for 23days. She is followed by endodontic assistant through the [facility]. She statesshe has difficulty contacting him and seeing him. She was offered option to follow-up with endodontic assistant in [place]. Patient denies fever, chills night sweats. Patient [...] % (Auto) 59.8 Lymph % (Auto) 24.2 Harvey % (Auto) 12.9 H Eos % (Auto) [...] Hr 68 H* [place] [address] H Radiography Diagnostic Testing: Clinical Impression(s) from Imaging Studies Chest X-Ray 01/07/25 13:19 IMPRESSION: Findings consistent with mild congestive heart failure. Reading Location: [id number] ED attending interpretation of 2 view chest [...] dose of Lasix as instructed by her endodontic assistant without improvement. She is awake alertno distress. [...] heart failure. 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 She was hospitalized for 23days. She is followed by endodontic assistant through the [facility]. She statesshe has difficulty contacting him and seeing him. She was offered option to follow-up with endodontic assistant in [place]. Patient denies fever, chills night sweats. Patient [...] % (Auto) 59.8 Lymph % (Auto) 24.2 Harvey % (Auto) 12.9 H Eos % (Auto) [...] Hr 68 H* [place] [address] H Radiography Diagnostic Testing: Clinical Impression(s) from Imaging Studies Chest X-Ray 01/07/25 13:19 IMPRESSION: Findings consistent with mild congestive heart failure. Reading Location: [id number] Management Discussion w/another healthcare provider: Hospitalist (Documented [...] your Primary Care Provider. Call [facility] ([phone]) or report tothe closest Emergency Room. Call 911 if necessary. 01/07/25 1648 Cosigner Signature (if applicable): 01/07/25 1704 CC: JARROD Collazo ~ Signed [facility]07-06-2025 History and physical note [facility] Medical Records Department [address] [place] [address] H&P Exam - Hospitalist 01/07/25 1629 MR#: [id number] Acct: [id number] Name: BERTA SANCHES Rep #:[id number] : [...] post Watchman device, congestive heart failure [facility] with several weeks of shortness of breath and bilateral lower extremity edema. Reportedly in September 2023 she had surgery in [place] for some kind of intra-abdominal artery blockageand was placed on Plavix and aspirin and was having difficulties with her heart failure at that time. She came home at the end of October and has been taking herLasix 40 twice daily and spironolactone 12.5 mg twice daily without improvement. She recently followed with her [facility] endodontic assistant with increase in her Lasix by mouth but has not had improvement. Patient is having somewhat shortness of breath on exertion that she is having difficulty with her ADLs and notes her legs feel so tight and swollen that she has difficulty bending over tochange her close/completing ADLs. In the ED [id number], heart rate 78 with blood pressure 135/57, [...] bowel or bladder changes. ROS otherwise negative [facility] Medical History Anxiety Brain aneurysm [...] % (Auto) 59.8, Lymph % (Auto) 24.2, Harvey % (Auto) 12.9 H, Eos % (Auto) [...] Sens 71 H*, [place] [address] H 01/07/25 14:54: Troponin T Hi Sens 2 Hr 68 H* Imaging Radiology Impression Chest X-Ray 01/07/25 13:19 IMPRESSION: Findings consistent with mild congestive heart failure. Reading Location: [id number] Assessment & Plan Assessment/Plan (1) CHF exacerbation: [...] Heller MD Charges/Coding Visit Charges Inpatient E&M: 85098 Init Hosp L2 01/07/25 1635 Cosigner Signature (if applicable): CC: JARROD Collazo; Dr. Radha Heller MD~ Signed [facility]07-06-2025 Radiology Diagnostic study note [facility] Imaging Services [address] [place], [place] [id number] Chest PA and Lateral MR#: [id number] Acct: [id number] Name: BERTA SANCHES SCOTTIE Rep #: [id number] : 1945 F 79 From: Nahum Trinidad MD PCP: JARROD Cantu Status: REG E R Study:Chest PA and Lateral Date of Exam: 01/07/25 Exam# [id number] Ordering Dr: Sheree Haynes PROCEDURE: CHEST PA [...] with mild congestive heart failure. Reading Location: [id number] CC: JARROD Collazo; FERNANDO Uriostegui ~ Apartment Leasing Specialist: Signed [facility] Work Phone: 1(283) [phone] Discharge summary Author Sheree Simmons [facility] Note Date/Time January 07, 2025 5:04p m [facility] Medical Records Department [address] [place] [address] Emergency Department Summary 01/07/25 MR#: [id number] Acct: [id number] Name: BERTA SANCHES Rep #:[id number] : 1945 79 From: Sheree KING PCP: JARROD Cantu Status:ADM I N Location: [place] [address] HPI <FERNANDO Uriostegui - Last Filed: 01/07/25 [...] in September 2023 she had surgery in [place] for some type of intra-abdominal artery blockage and was started on Plavix in addition to her baseline aspirin 81 mg. She states she was also having issues with her congestive heart failure. She came home at the end of October and has been taking her normal Lasix 40 mg twice daily and spironolactone 12.5 mg twice daily without improvement. She saw her [facility] endodontic assistant Dr. Burdick on January 01. He changed [...] is from allergies but no significant cough. [facility] <FERNANDO Uriostegui - Last Filed: 01/07/25 16:48> [facility] Medical History (Updated 01/07/25 @ [...] <FERNANDO Uriostegui - Last Filed: 01/07/25 16:48> [facility] MDM Narrative Medical decision making narrative: [...] dose of Lasix as instructed by her endodontic assistant without improvement. She is awake alertno distress. [...] heart failure. 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 She was hospitalized for 23days. She is followed by endodontic assistant through the [facility]. She statesshe has difficulty contacting him and seeing him. She was offered option to follow-up with endodontic assistant in [place]. Patient denies fever, chills night sweats. Patient [...] % (Auto) 59.8 Lymph % (Auto) 24.2 Harvey % (Auto) 12.9 H Eos % (Auto) [...] Hr 68 H* [place] [address] H Radiography Diagnostic Testing: Clinical Impression(s) from Imaging Studies Chest X-Ray 01/07/25 13:19 IMPRESSION: Findings consistent with mild congestive heart failure. Reading Location: [id number] ED attending interpretation of 2 view chest [...] dose of Lasix as instructed by her endodontic assistant without improvement. She is awake alertno distress. [...] heart failure. 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 She was hospitalized for 23days. She is followed by endodontic assistant through the [facility]. She statesshe has difficulty contacting him and seeing him. She was offered option to follow-up with endodontic assistant in [place]. Patient denies fever, chills night sweats. Patient [...] % (Auto) 59.8 Lymph % (Auto) 24.2 Harvey % (Auto) 12.9 H Eos % (Auto) [...] Hr 68 H* [place] [address] H Radiography Diagnostic Testing: Clinical Impression(s) from Imaging Studies Chest X-Ray 01/07/25 13:19 IMPRESSION: Findings consistent with mild congestive heart failure. Reading Location: [facility] Management Discussion w/another healthcare provider: Hospitalist (Documented [...] your Primary Care Provider. Call [facility] ([phone]) or report to the closest Emergency Room. Call 911 if necessary. 01/07/25 1648 <Electronically signed by Sheree KING> Cosigner Signature (if applicable): 01/07/25 1704 <Electronically signed by Romel UGARTE> CC: JARROD Collazo ~ Signed [facility] Work Phone: 1(167) 971-626606-30-2025 Instructions* Patient Instructions* Carla Burdick MD - 01/01/2025 11:12 AM EDT I have written you for lasix 40 mg pills Take two in the morning (80 mg) and one (40 mg) in the afternoon for this week Wed-Wednesday Repeat blood work next wednesday documented in this encounterParkview Health06-30-2025 History of Present illness Narrative* Carla Burdick MD - 01/01/2025 11:00 AM EDT Images from the original note were not included. [facility] SECTION OF REGIONAL CARDIOLOGY Cardiology ([facility]) [address] [facility] [id number] OUTPATIENT VISIT DATE 01/01/2025 PRIMARY CARE PHYSICIAN: Doreen Le [address] [place] [address] HISTORY OF PRESENT ILLNESS: Ms. Sanches is a 79 year old woman with a history of remote aortic valve replacement with homograft in 1996 and possible repair of the ascending aorta, chronic diastolic congestive heart failure, hypertension, dyslipidemia, atrial fibrillation with history of pulmonary vein isolation procedures, pacemaker placement and watchman procedure who presents for follow-up. Patient was admitted to [facility]. She was discharged after 2 [...] of anterior communicating artery (HCC) Dr. Aaron [facility] Bilateral carotid artery [...] Pacemaker 10/21/[address] TRELL BARTLETT [id number] pulse generator, his bundle lead, right atrial lead Peripheral arterial disease Rheumatic fever Steatosis, liver 03/26/2014 fatty liver on US. 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 Lua PACEMAKER 10/2019 PART. HYSTERECTOMY W/WO RMVL OVARIES/TUBES 1974 h/o cervical cancer ovaries remain PAST SURGICAL HISTORY OF 1996 Aortic valve repair, Dr. Apodaca PAST SURGICAL HISTORY OF 2001 [address] Beltrán, [facility] PAST SURGICAL HISTORY OF 2016 [...] bilaterally CARDIOVASCULAR MEDICINE TESTING: Right Heart Catheterization [facility] 10/24/2024: Cardiac output (Qs) !4.1L/min ! [...] !SVR !1650dyn-sec/cm5 ! + + + !SVRI !2187eww-umw-j^2/cm5 ! + + + !PVR !544dyn-sec/cm5 ! + + + !PVRI !838xwm-vnn-n^2/cm5 ! + + + !Total systemic resistance!2097dyn-sec/cm5, 9673uiv-fli-h^2/cm5! Echocardiogram [facility] 10/03/2024: 1. Left ventricle: The cavity [...] or suggestive of Atrial Fibrillation * AT/AF Rhodes: 67.8% * Total number of events: 2774 Tachycardia: AF w/RVR * Stored EGMs listed as NSVT AND SVT are consistent with or suggestive of Atrial Fibrillation with Rapid Ventricular Response * AT/AF Rhodes: 67.8% * Total episodes: 9 * Longest [...] testing. She underwent SMA stent placement at [facility] September 2024. She has been treated for [...] daily. Carla Burdick MD documented in this encounterParkview Health06-30-2025 NoteHNO ID: [id number] Author: CARLA BURDICK MD Service: ? Author Type: Physician Type: Progress Notes Filed: 01/01/2025 12:27 Note Text: [facility] SECTION OF REGIONAL CARDIOLOGY Cardiology ([facility]) [address] [facility] [id number] OUTPATIENT VISIT DATE 01/01/2025 PRIMARY CARE PHYSICIAN: Doreen Le [address] [place] [address] HISTORY OF PRESENT ILLNESS: Ms. Sanches is a 79 year old woman with a history of remote aortic valve replacement with homograft in 1996 and possible repair of the ascending aorta, chronic diastolic congestive heart failure, hypertension, dyslipidemia, atrial fibrillation with history of pulmonary vein isolation procedures, pacemaker placement and watchman procedure who presents for follow-up. Patient was admitted to [facility]. She was discharged after 2 [...] Pacemaker 10/21/[address] TRELL BARTLETT [id number] pulse generator, his bundle lead, right atrial lead Peripheral arterial disease Rheumatic fever Steatosis, liver 03/26/2014 fatty liver on US. 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 Mosley MASTOIDECTOMY Right 04/30/2015 cholesteatoma removed, Dr. Lua PACEMAKER 10/2019 PART. HYSTERECTOMY W/WO RMVL OVARIES/TUBES 1974 h/o cervical cancer ovaries remain PAST SURGICAL HISTORY OF 1996 Aortic valve repair, Dr. Apodaca PAST SURGICAL HISTORY OF 2001 [address] Beltrán, [facility] PAST SURGICAL HISTORY OF 2015 [...] mg iron) tabl (more content not included)... [facility]06-24-2025 Telephone encounter Note* Telephone Encounter [...] answered at this time. Albin Gu APRN.CNP [facility]06-24-2025 Miscellaneous Notes* Telephone Encounter - Albin [...] time. Albin Gu APRN.CNP documented in this encounterParkview Health06-18-2025 NoteHNO ID: [id number] Author: LARS SILVA, DO Service: ? Author Type: Physician Type: Progress Notes Filed: 12/20/2024 17:56 Note Text: [facility] [place] DEPARTMENT OF VASCULAR SURGERY OUTPATIENT VISIT DATE December 20, 2024 OUTPATIENT VISIT TYPE ESTABLISHED SERVICE DATE: 12/20/2024 SERVICE TIME: 8:53 AM PRIMARY CARE PHYSICIAN: Deysi Collazo APRN.KNIT GOODS MENDER HISTORY OF PRESENT ILLNESS: Ms. Sanches is a 79 year old female who presents today for a vascular surgery follow-up visit follow up on mesenteric duplex. She recently increased her lasix at the CHF clinic. She had a stent placed in [place] in September. She was recently admitted to [place] for anemia. She has noted increased swelling. [...] Pacemaker 10/21/[address] TRELL BARTLETT [id number] pulse generator, his bundle lead, right atrial lead Peripheral arterial disease Rheumatic fever Steatosis, liver 03/26/2014 fatty liver on US. 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 Mosley MASTOIDECTOMY Right 04/30/2015 cholesteatoma removed, Dr. Lua PACEMAKER 10/2019 PART. HYSTERECTOMY W/WO RMVL OVARIES/TUBES 1974 h/o cervical cancer ovaries remain PAST SURGICAL HISTORY OF 1996 Aortic valve repair, Dr. Apodaca PAST SURGICAL HISTORY OF 2001 [address] Beltrán, [facility] PAST SURGICAL HISTORY OF 2016 [...] procedure on 01/12/22, sheila (more content not included)...[facility]06-18-2025 History of Present illness Narrative* Lars Silva, DO - 12/20/2024 8:53 AM EDT Images from the original note were not included. [facility] [place] DEPARTMENT OF VASCULAR SURGERY OUTPATIENT VISIT DATE [...] in September. She was recently admitted to [place] for anemia. She has noted increased swelling. [...] (HCC) Pedro aneurysm of anterior communicating artery [facility] Dr. Aaron [facility] Bilateral carotid artery stenosis 11/26/2016 05/27/16 moderate 50-69% stenosis right and left Bilateral pneumonia 07/20/2015 Cancer of cervix (HCC) Cervical cancer (HCC) 1973 Chest pain 06/01/2015 negative work up with nuclar stress CHF (congestive heart failure) ([facility]) Cholesteatoma of right ear surgical removal Chronic mastoiditis of left side Chronic renal failure, stage 3b ([facility]) 04/15/2022 Diabetes (HCC) Diabetes (HCC) GERD (gastroesophageal reflux disease) H/O: GI bleed High blood pressure Hypercholesterolemia Mastoiditis of right side s/p mastoidectomy, complete opacitificationright tympanic cavity and mastoid cells on CT 06/01/16 Mitral valve regurgitation Pacemaker 10/21/[address] TRELL BARTLETT [id number] pulse generator, his bundle lead, right atrial lead Peripheral arterial disease Rheumatic fever Steatosis, liver 03/26/2014 fatty liver on US. 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 Lua PACEMAKER 10/2019 PART. HYSTERECTOMY W/WO RMVL OVARIES/TUBES 1974 h/o cervical cancer ovaries remain PAST SURGICAL HISTORY OF 1996 Aortic valve repair, Dr. Apodaca PAST SURGICAL HISTORY OF 2001 [address] Beltrán, [facility] PAST SURGICAL HISTORY OF 2016 [...] 2024 TIME: 8:53 AM documented in this encounterParkview Health06-17-2025 NoteHNO ID: [id number] Author: GWEN VALENTINE RN Service: ? Author [...] bleeding or swelling noted. Pt tolerated well. [id number] History of Present illness Narrative* Gwen Valentine [...] note were not included. [facility] [place] [facility] Failure [facility] OUTPATIENT VISIT [...] feeling fluid overloaded [facility] [place] [facility] Discussed with her taking lasix as it was prescribed. As her spironolactone was stopped, did advise patient restart this at 25 mg once a day for four days only. She was instructed to call office in a week to review symptoms. On 10/15, patient presented back to [facility] for gastrointestinal bleed. She had a colonoscopy [...] and entresto. The patient wished to leave [place] so she could return to [place]. Cardiology and Pulmonary agreed with discharge. Patient [...] Pacemaker 10/21/[address] TRELL BARTLETT [id number] pulse generator, his bundle lead, right atrial lead Peripheral arterial disease Rheumatic fever Steatosis, liver 03/26/2014 fatty liver on US. 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 Lua PACEMAKER 10/2019 PART. HYSTERECTOMY W/WO RMVL OVARIES/TUBES 1974 h/o cervical cancer ovaries remain PAST SURGICAL HISTORY OF 1996 Aortic valve repair, Dr. Apodaca PAST SURGICAL HISTORY OF 2001 [address] Beltrán, [facility] PAST SURGICAL HISTORY OF 2015 [...] impression and interpretation as noted. Federico Hammonds [id number] DEVICE CHECK 10/04/2024: Tachycardia: AF * Stored EGMs are consistent with or suggestive of Atrial Fibrillation * AT/AF Rhodes: 67.8% * Total number of events: 2774 Tachycardia: AF w/RVR * Stored EGMs listed as NSVT AND SVT are consistent with or suggestive of Atrial Fibrillation with Rapid Ventricular Response * AT/AF Rhodes: 67.8% * Total episodes: 9 * Longest episode: 28 SECS * Fastest episode:207 BPM Remote Device Evaluation [facility] [facility] FROM [facility] * Device type: DUAL LEAD PACEMAKER * Presenting Rhythm: AF/ VS * Battery Status: Battery is at OK, 9.83 yrs . * Atrial Arrhythmias: There have been 12 atrial detections. Anticoagulants listed: _LAAC____ * Ventricular Arrhythmias: There have been __0 TRUE_ ventricular detections. * Lead Measurements: Capture thresholds, sensing, and lead impedances are appropriate. * Other Diagnostics: AP 64.4 PSYCHODRAMATIST 9.3% Tachycardia: AF * Stored EGMs are consistent with or suggestive of Atrial Fibrillation * AT/AF Rhodes: 8.2% (THIS PERCENT IS INACCCURATE,LIKELY CLOSER TO [...] Discussed red flags and when to call MD/CHEMICAL RESEARCH TECHNICIAN or [facility] ED. Medications reconciled at end of visit: yes I spent 40 minutes in this visit, with more than 50% of the time devoted to patient counseling. Recording using [email or web address] software for draft documentation was discussed with patient/authorized patient account representative. All questions were welcome and answered. Patient/authorized patient account representative agreed toproceed. SIGNATURE: Albin Gu APRN.CNP PATIENT NAME: Berta Sanches DATE: December 19, 2024 TIME: 1100 documented in this encounterParkview Health06-17-2025 NoteHNO ID: [id number] Author: ALBIN GU APRN.CNP Service: ? Author Type: Nurse Practitioner Type: Progress Notes Filed: 12/19/2024 11:45 Note Text: [facility] [place] [facility] Heart Failure Clinic OUTPATIENT VISIT [...] and was worried about traveling home to [place] in a few days. Discussed with her taking lasix as it was prescribed. As her spironolactone was stopped, did advise patient restart this at 25 mg once a day for four days only. She was instructed to call office in a week to review symptoms. On 10/15, patient presented back to [facility] for gastrointestinal bleed. She had a colonoscopy [...] and entresto. The patient wished to leave [place] so she could return to [place]. Cardiology and Pulmonary agreed with discharge. Patient [...] monitoring her sodium intake (more content not included)...[facility] CenterLuvxvhoe53-84-0199 Instructions* Patient Instructions* Albin Gu APRN.JASPREET - [...] or concern, you can call me at [phone]. documented in this encounterParkview Health06-11-2025 Telephone encounter Note * Telephone Encounter - Alex Gonzalez - 12/13/2024 9:28 AM EDT Transitional Care Management (TCM) [facility] Monitoring Program Provider Action / FYI: N/A SUMMARY: Outreach type: INITIAL OUTREACH Discharge Network Status: In-Network Discharge Source of Patient: [facility] TCM Discharge Report Patient discharged from [place] on December 12. Admitted for Acute on chronic diastolic CHF (congestive heart failure) (HCC). Contact made with patient: No - next outreach attempt will be on next business day. Alex Betancourt December 13, 2024 9:35 AM [facility]06-11-2025 Miscellaneous Notes* Telephone Encounter - Alex Gonzalez - 12/13/2024 9:28 AM EDT Transitional Care Management (TCM) [facility] Monitoring [facility] Provider Action / FYI: N/A SUMMARY: Outreach type: INITIAL OUTREACH Discharge Network Status: In-Network Discharge Source of Patient: [facility] TCM Discharge Report Patient discharged from [place] on December 12. Admitted for Acute on chronic diastolic CHF (congestive heart failure) (HCC). Contact made with patient: No - next outreach attempt will be on next business day. Alex Betancourt December 13, 2024 9:35 AM documented in this encounterParkview Health06-10-2025 NoteHNO ID: [id number] Author: STACIE LONDONO RN Service: Care Management [...] Primary Care Physician Name/Phone: Deysi Collazo APRN.CNP [phone] Additional Information: na Discharge order written for today, patient discharged home with no services. Family will transport. SIGNATURE: Stacie Londono RN PATIENT NAME: Berta Sanches DATE: December 12, 2024 TIME: 9:13 [id number] Telephone encounter Note* Telephone Encounter - Deysi Collazo APRN.CNP - 12/11/2024 1:06 PM EDT Noted. Deysi Collazo APRN.CNP [facility]06-09-2025 Miscellaneous Notes* Telephone Encounter - Deysi Collazo APRN.CNP - 12/11/2024 1:06 PM EDT Noted. Deysi Collazo APRN.CNP * Telephone Encounter - Sigifredo Rivera LPN - 12/11/2024 11:15 AM EDT Pt re admitted to [facility]. Sigifredo Rivera LPN * Telephone Encounter - Marilyn Cesar - 12/11/2024 11:05 AM EDT Patient called to cancel hospital follow up due to re admission yesterday 12/10/2024 documented in this encounterParkview Health06-09-2025 NoteHNO ID: [id number] Author: MAXIMINO JENNINGS, RN Service: Care Management Author Type: Registered Nurse Type: Care Mgt Initial Assessment Filed: 12/11/2024 11:51 Note Text: CARE MANAGEMENT: ASSESSMENT AND DISCHARGE PLAN SERVICE DATE: December 11, 2024 SERVICE TIME: 11:50 AM PCP: Deysi Collazo APRN.CNP Primary Contact: Extended Emergency Contact Information Primary Emergency Contact: Natanael Sanches Address: [address] [place] [address] Mobile Relation: Spouse Admission Status: Inpatient Insurance Provider: [employer] PPO Discharge Planning requested by: Per Department Practice Potential Transition Plans Home Advance Directives Current Advance Directive: Living Will, Health Care Power of Associate Media Director In Chart: No Current Living Arrangements and [...] None Discharge Planning Patient Goal(s): General wellness [place] Explained: [place] Given: No Reason Not Given: [...] assessment. Patient from home with her , Tony-BAUDILIO, drives minimally. to transport upon DC. CM assigned will continue to follow for DC planning needs. SIGNATURE: Maximino Jennings RN PATIENT NAME: Berta Sanches DATE: December 11, 2024 TIME: 11:50 [facility] [id number] NoteHNO ID: [id number] Author: JUAN DIEGO KNOWLES MD Service: Hospital [...] ischemic colitis s/p SMA stenting 09/2024 in [facility], hx of AVR, CKD3. Patient presenting with [...] Diego Knowles MD DATE: 12/11/2024 TIME: 11:47 [facility]MS[facility] [id number] Telephone encounter Note* Telephone Encounter - Sigifredo Rivera LPN - 12/11/2024 11:15 AM EDT Pt re admitted to [facility]. Sigifredo Rivera LPN [facility]06-09-2025 Telephone encounter Note* Telephone Encounter - Marilyn Cesar - 12/11/2024 11:05 AM EDT Patient called to cancel hospital follow up due to re admission yesterday 12/10/2024 [facility]05-19-[facility]25 History of Present illness Narrative* Carla Burdick MD - 11/20/2024 8:00 AM EDT Images from the original note were not included. [facility]STITUTE SECTION OF REGIONAL CARDIOLOGY Cardiology ([facility]) [address] [facility] [id number] OUTPATIENT VISIT DATE PRIMARY CARE PHYSICIAN: Doreen Le [address] [place] [address] HISTORY OF PRESENT ILLNESS: Ms. Sanches is [...] Pacemaker 10/21/[address] TRELL BARTLETT [id number] pulse generator, his bundle lead, right atrial lead Peripheral arterial disease Rheumatic fever Steatosis, liver 03/26/2014 fatty liver on US. 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 Lua PACEMAKER 10/2019 PART. HYSTERECTOMY W/WO RMVL OVARIES/TUBES 1974 h/o cervical cancer ovaries remain PAST SURGICAL HISTORY OF 1996 Aortic valve repair, Dr. Apodaca PAST SURGICAL HISTORY OF 2001 [address] Beltrán, [facility] PAST SURGICAL HISTORY OF 2015 [...] palpate. CARDIOVASCULAR MEDICINE TESTING: Right Heart Catheterization [facility] 10/24/2024: Cardiac output (Qs) !4.1L/min ! [...] !SVR !1650dyn-sec/cm5 ! + + + !SVRI !6207gld-svq-a^2/cm5 ! + + + !PVR !544dyn-sec/cm5 ! + + + !PVRI !064vte-alc-i^2/cm5 ! + + + !Total systemic resistance!2097dyn-sec/cm5, 2251xsu-vzi-c^2/cm5! Echocardiogram [facility] 10/03/2024: 1. Left ventricle: The cavity [...] or suggestive of Atrial Fibrillation * AT/AF Rhodes: 67.8% * Total number of events: 2774 Tachycardia: AF w/RVR * Stored EGMs listed as NSVT AND SVT are consistent with or suggestive of Atrial Fibrillation with Rapid Ventricular Response * AT/AF Rhodes: 67.8% * Total episodes: 9 * Longest episode: 28 SECS * Fastest episode:207 BPM IMPRESSION: Ms. Verónica is a 79 year old woman with [...] testing. She underwent SMA stent placement at [facility] September 2024. She has been treated for [...] TABLET Carla Burdick MD documented in this encounterParkview Health05-19-2025 NoteHNO ID: [id number] Author: CARLA BURDICK MD Service: ? Author Type: Physician Type: Progress Notes Filed: 11/20/2024 08:50 Note Text: [facility] SECTION OF REGIONAL CARDIOLOGY Cardiology ([facility]) [address] [facility] [id number] OUTPATIENT VISIT DATE PRIMARY CARE PHYSICIAN: Doreen Le [address] [place] [address] HISTORY OF PRESENT ILLNESS: Ms. Sanches is [...] Pacemaker 10/21/[address] TRELL BARTLETT [id number] pulse generator, his bundle lead, right atrial lead Peripheral arterial disease Rheumatic fever Steatosis, liver 03/26/2014 fatty liver on US. 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 Mosley MASTOIDECTOMY Right 04/30/2015 cholesteatoma removed, Dr. Lua PACEMAKER 10/2019 PART. HYSTERECTOMY W/WO RMVL OVARIES/TUBES 1974 h/o cervical cancer ovaries remain PAST SURGICAL HISTORY OF 1996 Aortic valve repair, Dr. Apodaca PAST SURGICAL HISTORY OF 2001 [address] Beltrán, [facility] PAST SURGICAL HISTORY OF 2016 [...] tablet by mouth t (more content not included)...[facility]05-14-2025 Telephone encounter Note* Telephone Encounter - Mckenzie Rodriguez MA - 11/15/2024 3:39 PM EDT Scheduled. Mckenzie Rodriguez MA [facility]05-14-2025 Miscellaneous Notes* Telephone Encounter - Mckenzie [...] metabolic panel and BNP. documented in this encounterParkview Health05-14-2025 Telephone encounter Note * Telephone Encounter [...] repeat a basic metabolic panel and BNP. [facility]05-05-2025 Instructions* Patient Instructions* Carla Burdick MD - 11/06/2024 3:33 PM EDT We are changing the Furosemide to Torsemide 20 mg two times per day Stop taking the Losartan documented in this encounterParkview Health05-05-2025 History of Present illness Narrative* Carla Burdick MD - 11/06/2024 2:40 PM EDT Images from the original note were not included. [facility] SECTION OF REGIONAL CARDIOLOGY Cardiology ([facility]) [address] [facility] [id number] OUTPATIENT VISIT DATE 11/06/2024 PRIMARY CARE PHYSICIAN: Doreen Le [address] [place] [address] HISTORY OF PRESENT ILLNESS: Ms. Sanches is [...] Pacemaker 10/21/[address] TRELL BARTLETT [id number] pulse generator, his bundle lead, right atrial lead Peripheral arterial disease Rheumatic fever Steatosis, liver 03/26/2014 fatty liver on US. 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 Lua PACEMAKER 10/2019 PART. HYSTERECTOMY W/WO RMVL OVARIES/TUBES 1974 h/o cervical cancer ovaries remain PAST SURGICAL HISTORY OF 1996 Aortic valve repair, Dr. Apodaca PAST SURGICAL HISTORY OF 2001 [address] Beltrán, [facility] PAST SURGICAL HISTORY OF 2015 [...] palpate. CARDIOVASCULAR MEDICINE TESTING: Right Heart Catheterization [facility] 10/24/2024: Cardiac output (Qs) !4.1L/min ! [...] !SVR !1650dyn-sec/cm5 ! + + + !SVRI !2440ywi-xkx-k^2/cm5 ! + + + !PVR !544dyn-sec/cm5 ! + + + !PVRI !695jts-rye-t^2/cm5 ! + + + !Total systemic resistance!2097dyn-sec/cm5, 8064trg-nem-l^2/cm5! Echocardiogram [facility] 10/03/2024: 1. Left ventricle: The cavity [...] or suggestive of Atrial Fibrillation * AT/AF Rhodes: 67.8% * Total number of events: 2774 Tachycardia: AF w/RVR * Stored EGMs listed as NSVT AND SVT are consistent with or suggestive of Atrial Fibrillation with Rapid Ventricular Response * AT/AF Rhodes: 67.8% * Total episodes: 9 * Longest [...] testing. She underwent SMA stent placement at [facility] September 2024. She has been treated for [...] I65.23 Carla Burdick MD documented in this encounterParkview Health05-05-2025 NoteHNO ID: [id number] Author: CARLA BURDICK MD Service: ? Author Type: Physician Type: Progress Notes Filed: 11/06/2024 17:01 Note Text: [facility] SECTION OF REGIONAL CARDIOLOGY Cardiology ([facility]) [address] [facility] [id number] OUTPATIENT VISIT DATE 11/06/2024 PRIMARY CARE PHYSICIAN: Doreen Le [address] [place] [address] HISTORY OF PRESENT ILLNESS: Ms. Sanches is [...] Pacemaker 10/21/[address] TRELL BARTLETT W1DR01 pulse generator, his bundle lead, right atrial lead Peripheral arterial disease Rheumatic fever Steatosis, liver 03/26/2014 fatty liver on US. 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 Mosley MASTOIDECTOMY Right 04/30/2015 cholesteatoma removed, Dr. Lua PACEMAKER 10/2019 PART. HYSTERECTOMY W/WO RMVL OVARIES/TUBES 1974 h/o cervical cancer ovaries remain PAST SURGICAL HISTORY OF 1996 Aortic valve repair, Dr. Apodaca PAST SURGICAL HISTORY OF 2002 [address] Beltrán, [facility] PAST SURGICAL HISTORY OF 2016 [...] Hypotension MEDICATIONS: clopidogrel (PLAVIX) (more content not included)...[facility] 11-03-2024 Telephone encounter Note* Telephone Encounter - Deysi Collazo APRN.CNP - 11/03/2024 4:29 PM EDT Looks like patient was seen today at heart failure clinic and had repeat labs. From notes, it lookslike patient continued to refuse ER. She has an appt w/ cardiology on Wednesday and is to repeat labs at that time. [facility]05-02-2025 Miscellaneous Notes* Telephone Encounter - Deysi [...] the ER. stated the kidney doctor at [facility] said her levels are not life [...] patient in to the heart center at [facility] today for the IVF. He said they [...] monitoring.Patient was not d/c'd from [facility], she left AMA. MONIQUE can cause correction damage and if uncorrected patient could end [...] proceed to ER immediately. documented in this encounterParkview Health05-02-2025 Telephone encounter Note * Telephone Encounter [...] with plan of care. Albin Gu APRN.CNP [facility]05-02-2025 Miscellaneous Notes* Telephone Encounter - Albin [...] care. Albin Gu APRN.CNP documented in this encounterParkview Health05-02-2025 History of Present illness Narrative* Gwen [...] note were not included. [facility] [place] [facility] Heart Failure Clinic OUTPATIENT VISIT [...] feeling fluid overloaded and was worried about [facility] to [place] in a few days. Discussed with her taking lasix as it was prescribed. As her spironolactone was stopped, did advise patient restart this at 25 mg once a day for four days only. She was instructed to call office in a week to review symptoms. On 10/15, patient presented back to [facility] for gastrointestinal bleed. She had a colonoscopy [...] and entresto. The patient wished to leave [place] so she could return to [place]. Cardiology and Pulmonary agreed with discharge. Today, [...] chicken, asparagus and s alad. While in [place], she was very conscious about her diet. She weighed every day. She feels after the hospitalization, she gained approx 20 lbs which she did call and discuss this with this HF CLARITY DEVELOPER. Wearing lidocaine patch over site to right side of neck as she mentions having a temporary dialysisport in place during first hospitalization. This area was bothersome to her however, she does mention the discomfort is improving. Does not have a tin whiz machine operator at this time. Can lay flat with [...] Pacemaker 10/21/[address] TRELL BARTLETT W1DR01 pulse generator, his bundle lead, right atrial lead Peripheral arterial disease Rheumatic fever Steatosis, liver 03/26/2014 fatty liver on US. 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 Lua PACEMAKER 10/2019 PART. HYSTERECTOMY W/WO RMVL OVARIES/TUBES 1973 h/o cervical cancer ovaries remain PAST SURGICAL HISTORY OF 1996 Aortic valve repair, Dr. Apodaca PAST SURGICAL HISTORY OF 2001 [address] Beltrán, [facility] PAST SURGICAL HISTORY OF 2015 [...] impression and interpretation as noted. Federico Hammonds [id number]:04 I have personally reviewed the Laboratory Testing and Echocardiogram. COUNSELING: We discussed the following non-pharmacological measures during this visit: Smoking and alcohol abstinence/cessation, if applicable Dietary and medication compliance Monitoring daily weights and blood pressures Exercise regimen When to call our office Heart Failure Education Booklet: Previously given. Discussed red flags and when to call MD/CHEMICAL RESEARCH TECHNICIAN or [facility] ED. Medications reconciled at end of visit: yes I spent 60 minutes in this visit, with more than 50% of the time devoted to patient counseling. SIGNATURE: Albin Gu APRN.CNP PATIENT NAME: Berta Sanches DATE: November 03, 2024 TIME: 0855 documented in this encounterParkview Health05-02-2025 NoteHNO ID: [id number] Author: GWEN VALENTINE RN Service: ? Author [...] No bleeding, no swelling noted. Pt tolerated well.[facility] CenterVbufjvht98-58-5237 NoteHNO ID: [id number] Author: ALBIN GU APRN.CNP Service: ? Author Type: Nurse Practitioner Type: Progress Notes Filed: 11/03/2024 10:28 Note Text: [facility] [place] [facility] Heart Failure Clinic OUTPATIENT VISIT [...] and was worried about traveling home to [place] in a few days. Discussed with her taking lasix as it was prescribed. As her spironolactone was stopped, did advise patient restart this at 25 mg once a day for four days only. She was instructed to call office in a week to review symptoms. On 10/15, patient presented back to [facility] for gastrointestinal bleed. She had a colonoscopy [...] and entresto. The patient wished to leave [place] so she could return to [place]. Cardiology and Pulmonary agreed with discharge. Today, [...] call and discuss this with this HF CLARITY DEVELOPER. Wearing lidocaine patch over site to right side of neck as she mentions having a temporary dialysis port in place during first hospitalization. This area was bothersome to her however, she does mention the discomfort is improving. Does not have a tin whiz machine operator at this time. Can lay flat with [...] and kidney function sug (more content not included)...[facility] CenterDjeulzmr76-48-2043 Instructions* Patient Instructions* Albin Gu APRN.CNP - [...] or concern, you can call me at [phone]. documented in this encounterParkview Health05-01-2025 Telephone encounter Note * Telephone Encounter - Quin Lama MA - 11/02/2024 9:00 AM EDT Spoke with patient's , Natanael. Patient was in background listening. Relayed message below in detail. Reiterated need for ER for IVF and lab monitoring. Both patient and spouse again declined going to the ER. stated the kidney doctor at [facility] said her levels are not life [...] patient in to the heart center at [facility] today for the IVF. He said they [...] be ordered without appointment. Quin Lama MA [facility]04-30-2025 Telephone encounter Note* Telephone Encounter - Irma Hwang RN - 11/01/2024 1:52 PM EDT Patient scheduled for 11/06/24. Irma Hwang RN [facility]04-30-2025 Miscellaneous Notes* Telephone Encounter - Irma Hwang RN - 11/01/2024 1:52 PM EDT Patient scheduled for 11/06/24. Irma Hwang RN documented in this encounterParkview Health04-29-2025 Telephone encounter Note * Telephone Encounter - Shaye Domingo APRN.CNP - 10/31/2024 4:46 PM EDT Creatinine is not improved and likely will not improve at home. Need IVF and Laboratory monitoring.Patient was not d/c'd from [facility], she left AMA. MONIQUE can cause correction damage and if uncorrected patient could end [...] worse and not better if not corrected. [facility]04-29-2025 Telephone encounter Note* Telephone Encounter - [...] Please review and advise, Radha Pyle RN [facility]04-29-2025 Telephone encounter Note* Telephone Encounter - Shaye Domingo APRN.CNP - 10/31/2024 1:35 PM EDT Left message for patient to return call. Patient's kidney function has gotten significantly worse and she needs to proceed to ER immediately. [facility]04-29-2025 NoteHNO ID: [id number] Author: SHAYE DOMINGO APRN.CNP Service: ? Author Type: Nurse Practitioner Type: Progress Notes Filed: 10/31/2024 12:52 Note Text: Chief Complaint Patient presents with: Hospital F/U [facility] Berta Sanches is a 79 year old female who presents here today for Above Complaints.. Acute Mesenteric Ischemia: - Initially admitted to [facility] on 10/02/2024. - Underwent femoral ultrasound-guided angiogram with angioplasty and stenting of the SMA. - Required CRRT for MONIQUE post-op. - Developed AFib with RVR post-op. - Discharged after 23-day hospitalization. Acute on Chronic Heart Failure: - Given IV Lasix during initial admission. - Readmitted to [facility] on 10/15/2024 for acute on chronic decompensated [...] Pacemaker 10/21/[address] TRELL BARTLETT W1DR01 pulse generator, his bundle lead, right atrial lead Peripheral arterial disease (HCC) Rheumatic fever Steatosis, liver 03/26/2014 fatty liver on US. 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 Mosley MASTOIDECTOMY Right 04/30/2015 cholesteatoma removed, Dr. Lua PACEMAKER 10/2019 PART. HYSTERECTOMY W/WO RMVL OVARIES/TUBES 1974 h/o cervical cancer ovaries remain PAST SURGICAL HISTORY OF 1996 Aortic valve repair, Dr. Apodaca PAST SURGICAL HISTORY OF 2001 [address] Beltrán, [facility] PAST SURGICAL HISTORY OF 2016 [...] 24 hr tablet Take (more content not included)...[facility]04-29-2025 History of Present illness Narrative* Shaye Domingo, TERI.KNIT GOODS MENDER - 10/31/2024 11:11 AM EDT Chief Complaint Patient presents with: [facility] F/U [facility] Berta Sanches is a 79 year old female who presents here today for Above Complaints.. Acute Mesenteric Ischemia: - Initially admitted to [facility] on 10/02/2024. - Underwent femoral ultrasound-guided angiogram with angioplasty and stenting of the SMA. - Required CRRT for MONIQUE post-op. - Developed AFib with RVR post-op. - Discharged after 23-day hospitalization. Acute on Chronic Heart Failure: - Given IV Lasix during initial admission. - Readmitted to [facility] on 10/15/2024 for acute on chronic decompensated [...] Pacemaker 10/21/[address] TRELL BARTLETT [id number] pulse generator, his bundle lead, right atrial lead Peripheral arterial disease (HCC) Rheumatic fever Steatosis, liver 03/26/2014 fatty liver on US. 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 Mosley MASTOIDECTOMY Right 04/30/2015 cholesteatoma removed, Dr. Lua PACEMAKER 10/2019 PART. HYSTERECTOMY W/WO RMVL OVARIES/TUBES 1973 h/o cervical cancer ovaries remain PAST SURGICAL HISTORY OF 1996 Aortic valve repair, Dr. Apodaca PAST SURGICAL HISTORY OF 2001 [address] Beltrán, [facility] PAST SURGICAL HISTORY OF 2015 [...] 07/05/2024 Anxiety Screening due on 07/07/2025 Covid-19 Vaccine( season) due on 07/07/2025 HbA1C due on 04/22/2025 [...] CONSULT TO PHYSICAL THERAPY - CONSULT TO FINAL INSPECTOR MOVEMENT ASSEMBLY 6. Acute on chronic diastolic congestive heart failure (HCC) - ICD9: 428.33, 428.0, ICD10: I50.33 - HFpEF 50+ - Compensated - Continue current medications - Encouraged sodium restriction - Encouraged daily weights - Call if 3 lbs gained in 1 days - Will contact Dr. Burdick's office for sooner follow up to discuss recommendations from cardiology/nephrology from [facility]. 7. Hospital discharge follow-up - ICD9: V67.59, ICD10: Z09 -23 days inpatient at [facility]. Shaye Domingo APRN.JASPREET documented in this encounterParkview Health04-10-2025 Telephone encounter Note * Telephone Encounter [...] answered at this time. Albin Gu APRN.CNP [facility]04-10-2025 Miscellaneous Notes* Telephone Encounter - Albin [...] time. Albin Gu APRN.CNP documented in this encounterParkview Health01-27-2025 Telephone encounter Note * Telephone Encounter - Melida Koo APRN.CNP - 07/31/2024 11:54 AM EST Pt called to request refill for KDur as she has run out of prescription. She states that she is currently in [place] and will be in [place] until October. [facility] called in [place], [place]. Spoke with Pharmacist on duty. Rx for KDur 10 meq PO daily given verbally #90 with no refills. Melida Koo APRN.JASPREET [facility] Work Phone: [phone]) 943-109401-27-2025 Miscellaneous Notes* Telephone Encounter - Melida Koo APRN.CNP - 07/31/2024 11:54 AM EST Pt called to request refill for KDur as she has run out of prescription. She states that she is currently in [place] and will be in [place] until October. [facility] called in [place], [place]. Spoke with Pharmacist on duty. Rx for KDur 10 meq PO daily given verbally #90 with no refills. Melida Koo APRN.CNP documented in this encounterParkview Health01-03-2025 NoteHNO ID: [id number] Author: SIGIFREDO RIVERA LPN Service: ? Author [...] membrane assessed by LIP pre and post procedureTr[facility]01-03-2025 NoteHNO ID: [id number] Author: DEYSI COLLAZO APRN.CNP Service: ? Author Type: Nurse Practitioner Type: Progress Notes Filed: 07/07/2024 12:41 Note Text: This is a 78 year old female who presents today with: Patient presents with: Establish Care HISTORY OF PRESENT ILLNESS: Berta Sanches is a 78 year old female. Patient presents with: Establish Care Pt presents today to [facility]. HTN: Patient is compliant with [...] Pacemaker 10/21/[address] TRELL BARTLETT [id number] pulse generator, his bundle lead, right atrial lead Peripheral arterial disease (HCC) Rheumatic fever Steatosis, liver 03/26/2014 fatty liver on US. 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 Mosley MASTOIDECTOMY Right 04/30/2015 cholesteatoma removed, Dr. Lua PACEMAKER 10/2019 PART. HYSTERECTOMY W/WO RMVL OVARIES/TUBES 1974 h/o cervical cancer ovaries remain PAST SURGICAL HISTORY OF 1996 Aortic valve repair, Dr. Apodaca PAST SURGICAL HISTORY OF 2001 [address] Beltrán, [facility] PAST SURGICAL HISTORY OF 2016 [...] Type 2 DM - (more content not included)...[facility]10-04-2024 Instructions* Patient Instructions* Albin Gu APRN.CNP - [...] or concern, you can call me at [phone]. documented in this encounterParkview Health10-04-2024 History of Present illness Narrative* Albin Gu APRN.CNP - 04/07/2024 9:00 AM EDT Images from the original note were not included. [facility] [place] [facility] OUTPATIENT VISIT [...] a boat and take it out on [employer] to [employer]. IMPRESSION: NYHA Functional Class: II Stage: C [...] morning meds 3. SSS (sick sinus syndrome) ([facility]) - ICD9: 427.81, ICD10: I49.5 -s/p PPM 4. Longstanding persistent atrial fibrillation ([facility]) - ICD9: 427.31, ICD10: I48.11 -CHADSVASc 5 [...] bilateral interstitial markings, moderate cardiomegaly Atrial fibrillation ([facility]) Pedro aneurysm of anterior communicating artery Dr. Aaron [facility] Bilateral carotid artery stenosis 11/26/2016 05/27/16 moderate 50-69% stenosis right and left Bilateral pneumonia 07/20/2015 Cancer of cervix (HCC) Cervical cancer (HCC) 1973 Chest pain 06/01/2015 negative work up with nuclar stress CHF (congestive heart failure) ([facility]) Cholesteatoma of right ear surgical removal Chronic mastoiditis of left side Chronic renal failure, stage 3b ([facility]) 04/15/2022 Diabetes ([facility]) Diabetes ([facility]) GERD (gastroesophageal reflux disease) H/O: GI bleed High blood pressure Hypercholesterolemia Mastoiditis of right side s/p mastoidectomy, complete opacitificationright tympanic cavity and mastoid cells on CT 06/01/16 Mitral valve regurgitation Pacemaker 10/21/[address] TRELL BARTLETT [id number] pulse generator, his bundle lead, right atrial lead Peripheral arterial disease (HCC) Rheumatic fever Steatosis, liver 03/26/2014 fatty liver on US. 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 Lua PACEMAKER 10/2019 PART. HYSTERECTOMY W/WO RMVL OVARIES/TUBES 1974 h/o cervical cancer ovaries remain PAST SURGICAL HISTORY OF 1996 Aortic valve repair, Dr. Apodaca PAST SURGICAL HISTORY OF 2001 [address] Beltrán, [facility] PAST SURGICAL HISTORY OF 2015 [...] * Heart Rate Histograms reviewed AP 45%, PSYCHODRAMATIST 10.4% Title: Tachycardia: AF * Stored EGMs are consistent with or suggestive of Atrial Fibrillation * AT/AF Rhodes: 38.7% * Total number of events: 4,598 [...] Discussed red flags and when to call MD/CHEMICAL RESEARCH TECHNICIAN or [facility] ED. Medications reconciled at end of visit: yes I spent 30 minutes in this visit, with more than 50% of the time devoted to patient counseling. SIGNATURE: Albin Gu APRN.KNIT GOODS MENDER PATIENT NAME: Berta Sanches DATE: April 07, 2024 TIME: 904 documented in this encounterParkview Health10-04-2024 NoteHNO ID: [id number] Author: ALBIN GU APRN.CNP Service: ? Author Type: Nurse Practitioner Type: Progress Notes Filed: 04/07/2024 09:57 Note Text: [facility] [place] OUTPATIENT VISIT [...] boat and take it out on [place] to fish. IMPRESSION: NYHA Functional Class: II [...] left Bilateral pneumonia 07/20/ (more content not included)...[facility] 02-21-2024 Telephone encounter Note* Telephone Encounter - [...] of plan of care. Melida Koo APRN.CNP [facility] Work Phone: 1(935) 310-313108-19-2024 Miscellaneous Notes* Telephone Encounter - Melida Koo [...] care. Melida Koo APRN.CNP documented in this encounterParkview Health08-05-2024 Telephone encounter Note * Telephone Encounter - Ying Fuentes LPN - 02/07/2024 12:55 PM EDT Spoke to Verónica and informed her of Maribell's response and [...] to Maribell as well. Ying Fuentes LPN [facility]08-05-2024 Miscellaneous Notes* Telephone Encounter - Ying [...] 02/04/2024 2:13 PM EDT I spoke to CotyVerónica and informed them of Maribell's response to [...] BNP. Maribell King APRN.CNP documented in this encounterParkview Health08-05-2024 Telephone encounter Note * Telephone Encounter - Maribell King APRN.CNP - 02/07/2024 12:47 PM EDT Patient should double Lasix to 40 mg BID for 3 days, then recheck BMP that has been ordered per PCP. Please ask patient to monitor daily weights. Maribell King APRN.CNP [facility]08-05-2024 Telephone encounter Note* Telephone Encounter - [...] left for call back. Melida Koo APRN.CNP [facility] Work Phone: 1(331) 226-535708-05-2024 Miscellaneous Notes* Telephone Encounter - Melida Koo [...] back. Melida Koo APRN.JASPREET documented in this encounterParkview Health08-02-2024 Telephone encounter Note * Telephone Encounter - Ying Fuentes LPN - 02/04/2024 2:13 PM EDT I spoke to and informed them of Marbiell's response to lab results and recommendations. Patient voiced understanding. Patient states BNP is elevated from 2 months ago. Patient asking if she should make any changes. Patient c/o weight gain and SOB with activity. Ying Fuentes LPN [facility]08-02-2024 Telephone encounter Note* Telephone Encounter - Ying Fuentes LPN - 02/04/2024 2:12 PM EDT ----- Message from Maribell King APRN.CNP sent at 02/04/2024 2:02 PM EDT ----- Please call the patient and report lab results revealed stable kidney function, normal potassium level, normal liver function, cholesterol is under good control, and elevated BNP. Maribell King APRN.CNP [facility]08-02-2024 Telephone encounter Note* Telephone Encounter - [...] answered at this time. Albin Gu APRN.CNP [facility]08-02-2024 Miscellaneous Notes* Telephone Encounter - Albin [...] time. Albin Gu APRN.JASPREET documented in this encounterParkview Health07-15-2024 Instructions* Patient Instructions* Carla Burdick MD - 01/17/2024 10:08 AM EDT We will repeat fasting blood work documented in this encounterParkview Health07-15-2024 History of Present illness Narrative* Carla Burdick MD - 01/17/2024 9:20 AM EDT Images from the original note were not included. [facility] SECTION OF REGIONAL CARDIOLOGY Cardiology ([facility]) [address] [facility] [address] OUTPATIENT VISIT DATE 01/17/2024 PRIMARY CARE PHYSICIAN: Doreen Le [address] [place] [address] HISTORY OF PRESENT ILLNESS: Ms. Sanches is [...] Pacemaker 10/21/[address] TRELL BARTLETT [id number] pulse generator, his bundle lead, right atrial lead Peripheral arterial disease (HCC) Rheumatic fever Steatosis, liver 03/26/2014 fatty liver on US. 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 Lua PACEMAKER 10/2019 PART. HYSTERECTOMY W/WO RMVL OVARIES/TUBES 1974 h/o cervical cancer ovaries remain PAST SURGICAL HISTORY OF 1996 Aortic valve repair, Dr. Apodaca PAST SURGICAL HISTORY OF 2001 [address] and [address] Beltrán, [facility] PAST SURGICAL HISTORY OF 2015 [...] I73.9 Carla Burdick MD documented in this encounterParkview Health07-15-2024 NoteHNO ID: [id number] Author: CARLA BURDICK MD Service: ? Author Type: Physician Type: Progress Notes Filed: 01/17/2024 10:36 Note Text: [facility] SE[facility]AL CARDIOLOGY Cardiology ([facility]) [address] [facility] [address] OUTPATIENT VISIT DATE 01/17/2024 PRIMARY CARE PHYSICIAN: Doreen Le [address] [facility] [place] [address] HISTORY OF PRESENT ILLNESS: Ms. Sanches is [...] Pacemaker 10/21/[address] TRELL BARTLETT [id number] pulse generator, his bundle lead, right atrial lead Peripheral arterial disease (HCC) Rheumatic fever Steatosis, liver 03/26/2014 fatty liver on US. 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 Mosley MASTOIDECTOMY Right 04/30/2015 cholesteatoma removed, Dr. Lua PACEMAKER 10/2019 PART. HYSTERECTOMY W/WO RMVL OVARIES/TUBES 1974 h/o cervical cancer ovaries remain PAST SURGICAL HISTORY OF 1996 Aortic valve repair, Dr. Apodaca PAST SURGICAL HISTORY OF 2001 [address] Beltrán, [facility] PAST SURGICAL HISTORY OF 2015 [...] mouth once daily. pota (more content not included)...[facility]06-04-2024 Instructions* Patient Instructions* Deysi Collazo APRN.KNIT GOODS MENDER - 12/07/2023 12:13 PM EDT Continue the same medications. If no better or worsening, start the antibiotic. Start mucinex or coricidin. Let us know if no improvement/worsening. documented in this encounterParkview Health06-04-2024 History of Present illness Narrative* Deysi Collazo APRN.JASPREET - 12/07/2023 11:58 AM EDT This is a 78 year old female who presents today with: Patient presents with: Acute Visit: Cough, chest congestion, swollen glands x 2-3 weeks HISTORY OF PRESENT ILLNESS: Berta Sancehs is a 78 year old female. Patient [...] Pacemaker 10/21/[address] TRELL BARTLETT [id number] pulse generator, his bundle lead, right atrial lead Peripheral arterial disease (HCC) Rheumatic fever Steatosis, liver 03/26/2014 fatty liver on US. 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 Lua PACEMAKER 10/2019 PART. HYSTERECTOMY W/WO RMVL OVARIES/TUBES 1973 h/o cervical cancer ovaries remain PAST SURGICAL HISTORY OF 1996 Aortic valve repair, Dr. Apodaca PAST SURGICAL HISTORY OF 2001 [address] Beltrán, [facility] PAST SURGICAL HISTORY OF 2015 [...] as needed for worsening/no improvement. Deysi Collazo APRN.KNIT GOODS MENDER documented in this encounterParkview Health05-24-2024 History of Present illness Narrative* Valentine [...] Signature: Valentine Meneses RN documented in this encounterParkview Health05-23-2024 Instructions* Patient Instructions* Albin Gu APRN.CNP [...] question or concern, you cancall me at [phone]. documented in this encounterParkview Health05-23-2024 History of Present illness Narrative* Albin Gu APRN.CNP - 11/25/2023 10:00 AM EDT Images from the original note were not included. [facility] [place] [facility] OUTPATIENT VISIT [...] timeline ofover 5 years ago. Was in [place] over the winter for 3 months. Noticed leg swelling while down in [place]. Went to urgent care while down there [...] Pacemaker 10/21/[address] TRELL BARTLETT W1DR01 pulse generator, his bundle lead, right atrial lead Peripheral arterial disease (HCC) Rheumatic fever Steatosis, liver 03/26/2014 fatty liver on US. 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 Lua PACEMAKER 10/2019 PART. HYSTERECTOMY W/WO RMVL OVARIES/TUBES 1973 h/o cervical cancer ovaries remain PAST SURGICAL HISTORY OF 1996 Aortic valve repair, Dr. Apodaca PAST SURGICAL HISTORY OF 2001 [address] Beltrán, [facility] PAST SURGICAL HISTORY OF 2015 [...] 25, 2023 TIME: 999 documented in this encounterParkview Health05-21-2024 History of Present illness Narrative* Chula Morales RN - 11/23/2023 2:39 PM EDT Lab from 11/19/[address] Mujica. Greatly improved with oral iron. Pt notified. No need for OVin Hem/Onc and to follow up with PCP. Pt verbalized understanding. Chula Morales RN documented in this encounterParkview Health05-20-2024 Instructions* Patient Instructions* Deysi Collazo APRN.CNP - 11/22/2023 9:53 AM EDT Continue the same medication. Repeat lab on Wednesday after you see Dr. Rodriguez. Moist heat/ice to the back. Massage to the area. Let us know if any problems/concerns. documented in this encounterParkview Health05-20-2024 History of Present illness Narrative* Deysi Collazo APRN.CNP - 11/22/2023 9:08 AM EDT This is a 78 year old female who presents today with: Patient presents with: Hospital Follow Up: [facility] follow up dc'd 11/12/23 dx: CHF HISTORY OF PRESENT ILLNESS: Berta Sanches is a 78 year old female. Patient presents with: Hospital Follow Up: [facility] follow up dc'd 11/12/23 dx: CHF Pt presents today for hospital follow-up. Discharged on 11/11 from [facility] w/ dx of CHF. Refers that she [...] Pacemaker 10/21/[address] TRELL BARTLETT W1DR01 pulse generator, his bundle lead, right atrial lead Peripheral arterial disease (HCC) Rheumatic fever Steatosis, liver 03/26/2014 fatty liver on US. 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 Lua PACEMAKER 10/2019 PART. HYSTERECTOMY W/WO RMVL OVARIES/TUBES 1974 h/o cervical cancer ovaries remain PAST SURGICAL HISTORY OF 1996 Aortic valve repair, Dr. Apodaca PAST SURGICAL HISTORY OF 2001 [address] Beltrán, [facility] PAST SURGICAL HISTORY OF 2016 [...] as needed for worsening/no improvement. Deysi Collazo APRN.CNP documented in this encounterParkview Health05-17-2024 Telephone encounter Note * Telephone Encounter - Albin Gu APRN.CNP - 11/19/2023 8:37 AM EDT Patient called office for instructions on diuretics as her weight is up 5 lbs. She states she was instructed to call the office with questions. This CLARITY DEVELOPER has not seen this patient in clinic but is scheduled to see her in the following week. The patient states she has not been able to reach her endodontic assistant. She has been taking additional 20 mg [...] Patient agrees and understands. Albin Gu APRN.JASPREET [facility] Work Phone: 1(550) 689-210805-17-2024 Miscellaneous Notes* Telephone Encounter - Albin Gu APRN.CNP - 11/19/2023 8:37 AM EDT Patient called office for instructions on diuretics as her weight is up 5 lbs. She states she was instructed to call the office with questions. This CLARITY DEVELOPER has not seen this patient in clinic but is scheduled to see her in the following week. The patient states she has not been able to reach her endodontic assistant. She has been taking additional 20 mg [...] care. Patient agrees and understands. Albin Gu APRN.KNIT GOODS MENDER documented in this encounterParkview Health05-15-2024 Telephone encounter Note * Telephone Encounter [...] No results found for this basename: BNP [facility]05-15-2024 Miscellaneous Notes* Telephone Encounter - Gwen [...] for this basename: BNP documented in this encounterParkview Health05-14-2024 Telephone encounter Note * Telephone Encounter - Mona Noonan - 11/16/2023 8:53 AM EDT Called patient and scheduled as Directed Mona Noonan [facility]05-14-2024 Miscellaneous Notes* Telephone Encounter - Mona [...] HEMATOLOGY Edmund Alex PA-C documented in this encounterParkview Health05-14-2024 History of Present illness Narrative* Geri Montes RN - 11/16/2023 8:15 AM EDT ACM CECY RN Patient identified by name and date of . Reason for review or outreach: Chart Review Cecy Priority Emergency Department Utilization ED DIAGNOSES/REASON(S) FOR ED USE: OTHER FINDINGS/SUMMARY:E.D. visit on 11-09-23 transitioned to [facility] Admit Patient Attributed To: QAE Payer: Pradeep CORDOBA Action Taken: No action needed Contact made with patient: No, Chart review only. Signature: Geri Montes RN documented in this encounterParkview Health05-13-2024 Telephone encounter Note * Telephone Encounter - Nara Malone RN - 11/15/2023 10:32 AM EDT Transitional Care Management (TCM) [facility] Monitoring Program Provider Action / FYI: na SUMMARY: Outreach type: INITIAL OUTREACH Discharge Network Status: In-Network Discharge Source of Patient: [facility] TCM Discharge Report Patient discharged from [facility] on 11.09.23. Admitted for Acute on chronic left systolic heart failure . Contact made with patient: Yes, for Initial Outreach Hi my name is Nara Malone RN and I am calling from the [facility] on behalf of your PrimaryCare Provider, Doreen [...] Appointment Center phone number to speak witha crm dynamics developer who can assist you with that appointment. [...] Malone RN November 15, 2023 10:35 AM [facility]05-13-2024 Miscellaneous Notes* Telephone Encounter - Nara Malone RN - 11/15/2023 10:32 AM EDT Transitional Care Management (TCM) [facility] Monitoring Program Provider Action / FYI: na SUMMARY: Outreach type: INITIAL OUTREACH Discharge Network Status: In-Network Discharge Source of Patient: [facility] TCM Discharge Report Patient discharged from [place] on 11.09.23. Admitted for Acute on chronic left systolic heart failure . Contact made with patient: Yes, for Initial Outreach Hi my name is Nara Malone RN and I am calling from the [facility] on behalf of your PrimaryCare Provider, Doreen [...] Appointment Center phone number to speak witha crm dynamics developer who can assist you with that appointment. [...] 15, 2023 10:35 AM documented in this encounterParkview Health05-13-2024 Telephone encounter Note * Telephone Encounter - Ralph Mujica DO - 11/15/2023 9:31 AM EDT Hemoglobin okay. Not urgent. Next new appointment time with either me or Dr. Rodriguez. [facility]05-13-2024 Telephone encounter Note* Telephone Encounter - Rachele Bee LPN - 11/15/2023 9:26 AM EDT Dx: 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 (ICD-10-CM)]; Iron malabsorption [K90.9 (ICD-10-CM)] [facility]05-13-2024 Telephone encounter Note* Telephone Encounter - Doreen Le PA-C - 11/15/2023 8:31 AM EDT Hospitalist is recommending outpatient iron transfusion. Please schedule. Telephone on 10/31/23 CONSULT TO HEMATOLOGY Edmund Alex PA-C [facility]05-10-2024 Telephone encounter Note* Telephone Encounter - Vandana Baird PSS - 11/12/2023 3:45 PM EDT Medical Care at home referral was received for Heart Failure services. Unfortunately the referral is declined at this time due to geographic location. Thank you for the referral. KAITLYNN Tuttle [facility]05-10-2024 Miscellaneous Notes* Telephone Encounter - Vandana [...] interface Date Referral Received: 11/12/2023 Referral Source: [facility] TC Program: HF Consult UD Consult scheduled with: NA Date of : 1945 Age: [age] year old PCP: M Claudia Le, PA-C Visit address from Epic: [address] [place] [address] Name of Physician who gave the order: Dr. Rita Rey Other services ordered: None Primary Insurance Company: Payor: [employer] MEDICARE / Plan: AET[employer] MEDICARE PPO / Product Type: PPO / Primary Insurance ID Number: [id number] documented in this encounterParkview Health05-10-2024 Telephone encounter Note * Telephone Encounter - Vandana Baird PSS - 11/12/2023 3:44 PM EDT Transitional Care Program - Intake Template - for interface Date Referral Received: 11/12/2023 Referral Source: [facility] Program: HF Consult UD Consult scheduled with: NA Date of : 1945 Age: [age] year old PCP: Doreen Le PA-C Visit address from [facility]: [address] [place] [address] Name of Physician who gave the order: Dr. Rita Rey Other services ordered: None Primary Insurance Company: Payor: [employer] MEDICARE / Plan: AETNA MEDICARE PPO / Product Type: PPO / Primary Insurance ID Number: [id number] [facility]05-10-2024 Evaluation note* Diagnosis Stage 3 chronic kidney disease, unspecified whether stage 3a or 3b CKD (HCC)- Primary documented in this encounter [facility]05-06-2024 History of Present illness Narrative* Bere Boykin APRN.[employer]IT [employer] MENDER - 11/08/2023 4:30 PM EDT Images from the original note were not included. [facility] [place] Martha Meléndez Department of Cardiovascular Medicine SECTION OF CLINICAL CARDIOLOGY OUTPATIENT VISIT DATE November 08, 2023 OUTPATIENT VISIT TYPE ESTABLISHED PRIMARY CARE PHYSICIAN: Doreen Le PA-C [address] [place] [address] CHIEF COMPLAINT: Follow Up HISTORY OF PRESENT [...] Pacemaker 10/21/[address] TRELL BARTLETT [id number] pulse generator, his bundle lead, right atrial lead Peripheral arterial disease (HCC) Rheumatic fever Steatosis, liver 03/26/2014 fatty liver on US. 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 Lua PACEMAKER 10/2019 PART. HYSTERECTOMY W/WO RMVL OVARIES/TUBES 1974 h/o cervical cancer ovaries remain PAST SURGICAL HISTORY OF 1996 Aortic valve repair, Dr. Apodaca PAST SURGICAL HISTORY OF 2001 [address] Beltrán, [facility] PAST SURGICAL HISTORY OF 2015 [...] - May be candidate for DCCV at [facility] once euvolemic 3. Acute on chronic HFmrEF [...] hemodynamic stability, he spouse drove her to [facility] ER. I called report to Dr. Tuttle in theER. CONTACT INFORMATION: Bere Boykin APRN.[facility] Cardiology [address] [facility] [address] Dept: [phone] I have reviewed the patient's medications and allergies, past medical, surgical, social and family history, updating these as appropriate. See Histories section of the [facility] for a display of this information. documented in this encounterParkview Health05-02-2024 Instructions* Patient Instructions* Doreen Le PA-C - 11/04/2023 8:46 AM EDT See sheet on piriformis stretching documented in this encounterParkview Health05-02-2024 History of Present illness Narrative* Doreen Le [...] Lymph 1.00 - 4.00 k/uL 2.82 2.73 Harvey% % 13.0 10.2 Abs Harvey <0.87 k/uL 1.10 (H) 0.79 Eosin% % [...] Pacemaker 10/21/[address] TRELL BARTLETT [id number] pulse generator, his bundle lead, right atrial lead Peripheral arterial disease (HCC) Rheumatic fever Steatosis, liver 03/26/2014 fatty liver on US. 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 Lua PACEMAKER 10/2019 PART. HYSTERECTOMY W/WO RMVL OVARIES/TUBES 1973 h/o cervical cancer ovaries remain PAST SURGICAL HISTORY OF 1996 Aortic valve repair, Dr. Apodaca PAST SURGICAL HISTORY OF 2001 2001 and [address] Beltrán, [facility] PAST SURGICAL HISTORY OF 2015 [...] Skin Cancer Pad (Peripheral Artery Disease) ([facility]) Pedro Aneurysm of Anterior Communicating Artery Stage 3 Chronic Renal Impairment Associated With Type 2 Diabetes Mellitus ([facility]) History of Pulmonary Embolism Ascending Aorta Dilatation ([facility]) Chronic Bilateral Pleural Effusions Colovesical Fistula Right Renal Mass Diverticulitis Large Intestine W/O Perforation Or Abscess W/O Bleeding Renal Cell Carcinoma, Right (Hcc) Iron Deficiency Anemia Hypomagnesemia Gastrointestinal Hemorrhage Associated With Acute Gastritis Esophageal Stenosis Dilated Cardiomyopathy (Hcc) Chronic Combined Systolic and Diastolic Chf (Congestive Heart Failure) ([facility]) Sss (Sick Sinus Syndrome) ([facility]) Duodenal Ulcer Type 2 Diabetes Mellitus With Diabetic Peripheral Angiopathy Without Gangrene, Without Long-Term Current Use of Insulin (Hcc) Longstanding Persistent Atrial Fibrillation ([facility]) S/P Placement of Cardiac [...] answered. Doreen Le PA-C documented in this encounterParkview Health05-01-2024 Telephone encounter Note * Telephone Encounter - Doreen Le PA-C - 11/03/2023 10:36 AM EDT She needs to see person scheduled next week. She may need additional appointment with the pulmonology specialist in addition but haven't heard from Dr. Burdick yet. Edmund Alex PA-C [facility]05-01-2024 Miscellaneous Notes* Telephone Encounter - Doreen Le PA-C - 11/03/2023 10:36 AM EDT She needs to see person scheduled next week. She may need additional appointment with the pulmonology specialist in addition but haven't heard from Dr. Burdick yet. Thanks, Edmund Le PA-C * Telephone Encounter - Uma Parson MA - 11/02/2023 10:59 AM EDT After review pt is currently scheduled with a Pipeline Superintendent Division in [place] on 11/08/23. This was setup on10/25/23. Her [...] Thanks, Edmund Le PA-C documented in this encounterParkview Health04-30-2024 Telephone encounter Note * Telephone Encounter - Sandra Thacker LPN - 11/02/2023 5:13 PM EDT Patient notified. Verbalized understanding. Is scheduled for for follow up. [facility]04-30-2024 Miscellaneous Notes* Telephone Encounter - Sandra Thacker LPN - 11/02/2023 5:13 PM EDT Patient notified. Verbalized understanding. Is scheduled for for follow up. * Telephone Encounter - Doreen Le PA-C - 11/02/2023 5:04 PM EDT Please advise from [employer] message: Hi Cassidy You labs show you [...] METABOLIC PANEL ThanksEdmund PA-C documented in this encounterParkview Health04-30-2024 Telephone encounter Note * Telephone Encounter - Doreen Le PA-C - 11/02/2023 5:04 PM EDT Please advise from [employer] message: Hi Cassidy You labs show you [...] BASIC METABOLIC PANEL Thanks, Edmund Le PA-C [facility]04-30-2024 Telephone encounter Note* Telephone Encounter - Uma Parson MA - 11/02/2023 10:59 AM EDT After review pt is currently scheduled with a Pipeline Superintendent Division in [place] on 11/08/23. This was setup on10/25/23. Her Cardiology appt with Clara is in January. Is she still following with him or seeing someone new? Uma Parson MA [facility]04-30-2024 Telephone encounter Note* Telephone Encounter - Doreen Le PA-C - 11/02/2023 10:54 AM EDT Please see if we can expedite cardiology visit to LIA r/t SOB, weight gain, lower extremity swelling and recent abnormal echo finding. Patient is willing for invasive procedures if necessary. Edmund Alex PA-C [facility]04-16-2024 History of Present illness Narrative* Lars Silva DO - 10/19/2023 4:00 PM EDT Reviewed DVT study with Cassidy. No evidence of DVT. Recommend follow up as scheduled with PCP and cardiology. documented in this encounterParkview Health04-15-2024 History of Present illness Narrative* Marisol [...] PATIENT PRESENTS WITH AN IMPLANTABLE OR ATTACHED AIRCRAFT MAGNETO MECHANIC: No RADIOLOGY DEPARTMENT: General X-ray: Exam(s) Completed: Chest X-Ray PERIPHERAL IV DATA: Not applicable SIGNED BY: RT Mario(R) October 18, 2023 2:28 PM documented in this encounterParkview Health04-15-2024 Instructions* Patient Instructions* Doreen Le PA-C - [...] lab in 2 weeks. documented in this encounterParkview Health04-15-2024 History of Present illness Narrative* Doreen Le PA-C - 10/18/2023 1:00 PM EDT 78 year old female with c/o here for Pedro Aneurysm Neurosurgeon Dr. Dianne Rogers, Susan Mtz [employer] 12/10/2022 MRA brain W/WO: Satisfactory appearance of [...] aneurysm ([place]jan 0) Sss (sick sinus syndrome) ([facility]) Paroxysmal atrial fibrillation (hcc) S/p placement of cardiac pacemaker (primary encounter diagnosis) Chronic combined systolic and diastolic chf (congestive heart failure) ([facility]) Dilated cardiomyopathy ([facility]) Ascending aorta dilatation [facility]) H/o rheumatic heart disease History of prosthetic [...] gradient 47/mmHg and mean 23mmHg up from 24/14. 03/24/2019 chest CTA 1. Small incompletely occluded [...] Lymph 1.00 - 4.00 k/uL 2.82 2.73 Harvey% % 13.0 10.2 Abs Harvey <0.87 k/uL 1.10 (H) 0.79 Eosin% % [...] recent CT scans which were done in [facility]. Gastroesophageal reflux disease without esophagitis Esophageal [...] Pacemaker 10/21/[address] TRELL BARTLETT [id number] pulse generator, his bundle lead, right atrial lead Peripheral arterial disease (HCC) Rheumatic fever Steatosis, liver 03/26/2014 fatty liver on US. 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 Lua PACEMAKER 10/2019 PART. HYSTERECTOMY W/WO RMVL OVARIES/TUBES 1974 h/o cervical cancer ovaries remain PAST SURGICAL HISTORY OF 1996 Aortic valve repair, Dr. Apodaca PAST SURGICAL HISTORY OF 2001 [address] 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 ([facility]) History of Pulmonary Embolism Ascending Aorta Dilatation ([facility]) Chronic Bilateral Pleural Effusions Colovesical Fistula Right Renal Mass Diverticulitis Large Intestine W/O Perforation Or Abscess W/O Bleeding Renal Cell Carcinoma, Right ([facility]) Iron Deficiency Anemia Hypomagnesemia Gastrointestinal Hemorrhage Associated With Acute Gastritis Esophageal Stenosis Dilated Cardiomyopathy (Hcc) Chronic Combined Systolic and Diastolic Chf (Congestive Heart Failure) ([facility]) Sss (Sick Sinus Syndrome) ([facility]) Duodenal Ulcer Type 2 Diabetes Mellitus With Diabetic Peripheral Angiopathy Without Gangrene, Without Long-Term Current Use of Insulin ([facility]) Longstanding Persistent Atrial Fibrillation ([facility]) S/P Placement of Cardiac Pacemaker Ckd (Chronic Kidney Disease) Platelet Inhibition Due to Plavix Diverticulosis Lung Nodule, Solitary Red Blood Cell Antibody Positive Iron Deficiency Anemia Secondary to Inadequate Dietary Iron Intake Iron Malabsorption Chronic Renal Failure, Stage 3b ([facility]) Spondylolisthesis At L4-L5 Level 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 SSS (sick sinus syndrome) ([facility]) - ICD9: 427.81, ICD10: I49.5 3. Paroxysmal atrial fibrillation (HCC) - ICD9: 427.31, ICD10: I48.0 4. S/P placement of cardiac pacemaker - ICD9: V45.01, ICD10: Z95.0 5. Chronic combined systolic and diastolic CHF (congestive heart failure) ([facility]) - ICD9: 428.42, 428.0, ICD10: I50.426. Dilated cardiomyopathy (HCC) - ICD9: 425.4, ICD10: I42.0 7. Ascending aorta dilatation ([facility]) - ICD9: 447.71, ICD10: [...] % (FLUSH) INJECTION SYRINGE - INSERT IV (NY,ID) - IV DISCONTINUE 10. Platelet inhibition due [...] medication Doreen Le PA-C documented in this encounterParkview Health04-12-2024 Miscellaneous Notes* Telephone Encounter - Mckayla [...] appointment in January 2024. Patient has called [place] location that they told her they are scheduling into April but if seen there she cannot be seen back in [place] location which is her preference. Patient is willing to travel to [facility] if she needs to. Please review and advise. Mckayla Albert LPN documented in this encounterParkview Health04-11-2024 History of Present illness Narrative* Lars Silva, DO - 10/14/2023 2:57 PM EDT Images from the original note were not included. [facility] [place] DEPARTMENT OF VASCULAR SURGERY OUTPATIENT VISIT DATE October 14, 2023 OUTPATIENT VISIT TYPE ESTABLISHED SERVICE DATE: 10/14/2023 SERVICE TIME: 2:58 PM PRIMARY CARE PHYSICIAN: Doreen Le PA-C HISTORY OF PRESENT ILLNESS: Ms. Sanches is a 78 year old female who presents today for a vascular surgery follow-up visit has noticed increased bilateral lower extremity edema especially in thighs. She recently returned home from [place]. She had duplex in [place] which was negative for DVT. PAST MEDICAL [...] Pacemaker 10/21/[address] TRELL BARTLETT [id number] pulse generator, his bundle lead, right atrial lead Peripheral arterial disease (HCC) Rheumatic fever Steatosis, liver 03/26/2014 fatty liver on US. 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 Lua PACEMAKER 10/2019 PART. HYSTERECTOMY W/WO RMVL OVARIES/TUBES 1974 h/o cervical cancer ovaries remain PAST SURGICAL HISTORY OF 1996 Aortic valve repair, Dr. Apodaca PAST SURGICAL HISTORY OF 2001 [address] Beltrán, [facility] PAST SURGICAL HISTORY OF 2015 [...] 2023 TIME: 2:58 PM documented in this encounterParkview Health01-01-2024 History of Present illness Narrative* Bijan [...] Pacemaker 10/21/[address] TRELL BARTLETT [id number] pulse generator, his bundle lead, [...] interactions). Bijan Cole MD documented in this encounterParkview Health12-04-2023 Miscellaneous Notes* Telephone Encounter - Sheree Savage Ma - 06/07/2023 4:55 PM EST Patient stopped by office and picked up shoe. Small Squared toe post op shoe Sheree Savage Ma * Telephone Encounter - Sheree Savage Ma - 06/07/2023 1:49 PM EST Called pt and she will stop in office this afternoon to parts picker post op shoe. Sheree Savage Ma * Telephone Encounter - Uma Parson Ma - 06/07/2023 9:43 AM EST See response from pt. Uma Parson Ma documented in this encounterParkview Health11-28-2023 History of Present illness Narrative* Marisol Cook, [...] 01, 2023 2:31 PM documented in this encounterParkview Health10-27-2023 History of Present illness Narrative* Mckayla Reed RT(Annalisa) - 04/30/2023 8:00 AM EDT Radiology Service [...] IV DATA: Not applicable SIGNED BY: RT Ronny(Annalisa) April 30, 2023 1:48 PM documented in this encounterParkview Health10-09-2023 History of Present illness Narrative* Marisol [...] 12, 2023 10:32 AM documented in this encounterParkview Health09-11-2023 Miscellaneous Notes* Telephone Encounter - Margoth [...] and advise. Agueda Schulte documented in this encounterParkview Health07-27-2023 Miscellaneous Notes* Telephone Encounter - Bushra Strauss - 01/28/2023 10:43 AM EDT Patient has been contacted and scheduled with Dr. Silva * Telephone Encounter - Sheree Savage Ma - 01/28/2023 9:55 AM EDT Pt viewed [employer] message. Please help pt set up consult. * Telephone Encounter - Doreen Le PA-C - 01/28/2023 6:33 AM EDT Please schedule: Telephone on 01/28/23 CONSULT TO VASCULAR SURGERY Pvd (peripheral vascular disease) with claudication (hcc) (primary encounter diagnosis) See [employer] Outcomes regarding PVR resuts dEmund Alex PA-C documented in this encounterParkview Health07-07-2023 Miscellaneous Notes* Telephone Encounter - Berta Keith - 01/08/2023 1:51 PM EDT Patient stated she will talk to Edmund at her appoitment.Berta Rahman * Telephone Encounter - Sheree Savage Ma - 01/08/2023 9:34 AM EDT Images from the original note were not included. Doreen Le PA-C [facility] David Aldana Please assist patient to schedule outstanding CT chest WO to follow lung nodules if she is amenable Edmund Alex PA-C documented in this encounterParkview Health07-06-2023 Instructions* Patient Instructions* Doreen Le PA-C - [...] due to heart conditions documented in this encounterParkview Health07-06-2023 History of Present illness Narrative* Doreen Le PA-C - 01/07/2023 8:40 AM EDT 77 year old female with c/o here for routine follow up. Worst problem currently are legs. Has to get up and walk around. Drinks tonic water with quinine. Pain is excruciating. Severe pain. Not every night. Pedro Aneurysm Neurosurgeon Dr. Dianne Rogers, Susan Mtz [employer] 12/10/2022 MRA brain W/WO: Satisfactory appearance of [...] (primary encounter diagnosis) Sss (sick sinus syndrome) ([facility]) Chronic combined systolic and diastolic chf (congestive heart failure) ([facility]) Dilated cardiomyopathy (hcc) Ascending aorta dilatation ([facility]) H/o rheumatic heart disease History of prosthetic aortic valve replacement Paroxysmal atrial fibrillation ([facility]) History of pulmonary embolism Presence of watchman [...] - 4.00 k/uL 2.05 2.22 1.81 2.82 Harvey% % 12.7 12.3 12.6 13.0 Abs Harvey <0.87 k/uL 0.93 (H) 1.06 (H) 0.74 [...] recent CT scans which were done in [facility]. Gastroesophageal reflux disease without esophagitis Esophageal [...] Pacemaker 10/21/[address] TRELL BARTLETT [id number] pulse generator, his bundle lead, right atrial lead Peripheral arterial disease (HCC) Rheumatic fever Steatosis, liver 03/26/2014 fatty liver on US. 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 Lua PACEMAKER 10/2019 PART. HYSTERECTOMY W/WO RMVL OVARIES/TUBES 1973 h/o cervical cancer ovaries remain PAST SURGICAL HISTORY OF 1996 Aortic valve repair, Dr. Apodaca PAST SURGICAL HISTORY OF 2001 [address] Beltrán, [facility] PAST SURGICAL HISTORY OF 2016 [...] TABLET BY MOUTH TWICE A DAY 60 [id number] clopidogrel (PLAVIX) 75 mg tablet Take 1 [...] ARTERIES [facility] 2. Atherosclerosis of [place] artery of both lower extremities with intermittent [...] UR - HGB A1C documented in this encounterParkview Health06-08-2023 NoteHNO ID: [id number] Author: RT Pranav(R) Service: Radiology Author Type: [...] BY: RT Pranav(R) December 10, 2022 1:06 [facility]04-04-2023 History of Present illness Narrative* M Claudia Le PA-C - 10/06/2022 9:00 AM EDT 77 year old female with c/o here for follow up Pedro Aneurysm Neurosurgeon Dr. Dianne Rogers, Susan Mtz [facility] 12/07/2017 note: f/u MRA recommended 202012/02/2017 [...] (primary encounter diagnosis) Sss (sick sinus syndrome) ([facility]) Chronic combined systolic and diastolic chf (congestive heart failure) ([facility]) Dilated cardiomyopathy (hcc) Ascending aorta dilatation ([facility]) H/o rheumatic heart disease History of prosthetic [...] - 4.00 k/uL 2.05 2.22 1.81 2.82 Harvey% % 12.7 12.3 12.6 13.0 Abs Harvey <0.87 k/uL 0.93 (H) 1.06 (H) 0.74 [...] recent CT scans which were done in [facility]. Gastroesophageal reflux disease without esophagitis Esophageal [...] Pacemaker 10/21/[address] TRELL BARTLETT [id number] pulse generator, his bundle lead, right atrial lead Peripheral arterial disease (HCC) Rheumatic fever Steatosis, liver 03/26/2014 fatty liver on US. 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 Lua PACEMAKER 10/2019 PART. HYSTERECTOMY W/WO RMVL OVARIES/TUBES 1973 h/o cervical cancer ovaries remain PAST SURGICAL HISTORY OF 1996 Aortic valve repair, Dr. Apodaca PAST SURGICAL HISTORY OF 2001 [address] Beltrán, [facility] PAST SURGICAL HISTORY OF 2015 [...] Skin Cancer Pad (Peripheral Artery Disease) ([facility]) Pedro Aneurysm of Anterior [...] and Diastolic Chf (Congestive Heart Failure) ([facility]) Sss (Sick Sinus Syndrome) ([facility]) Duodenal Ulcer Type 2 Diabetes Mellitus With Diabetic Peripheral Angiopathy Without Gangrene, Without Long-Term Current Use of Insulin ([facility]) Longstanding Persistent Atrial Fibrillation ([facility]) S/P Placement of Cardiac [...] (primary diagnosis) 2. SSS (sick sinus syndrome) ([facility]) - ICD9: 427.81, ICD10: I49.5 3. Chronic combined systolic and diastolic CHF (congestive heart failure) ([facility]) - ICD9: 428.42, 428.0, [...] PANEL Doreen Le PA-C documented in this encounterParkview Health04-03-2023 History of Present illness Narrative* Erin [...] 05, 2022 9:36 AM documented in this encounter[address]03-2023 Miscellaneous Notes* Result Encounter Note - Brayan Chicas MD - 10/05/2022 8:30 AM EDT Here are the test results.Keep follow up appointment to discuss the results. documented in this encounterParkview Health03-28-2023 Miscellaneous Notes* Telephone Encounter - Rachele Bee LPN - 09/29/2022 12:06 PM EDT Patient no longer followed by Dr. Lund. Rachele Bee LPN documented in this encounterParkview Health03-27-2023 Instructions* Patient Instructions* Carla Burdick MD - 09/28/2022 9:30 AM EDT We will repeat an echocardiogram in March Repeat fasting blood work documented in this encounterParkview Health03-27-2023 History of Present illness Narrative* Carla Burdick MD - 09/28/2022 9:00 AM EDT Images from the original note were not included. [facility] SECTION OF REGIONAL CARDIOLOGY Cardiology ([facility]) [address] [facility] [id number] OUTPATIENT VISIT DATE 09/28/2022 PRIMARY CARE PHYSICIAN: Doreen Le [address] [place] [address] HISTORY OF PRESENT ILLNESS: Ms. Sanches is [...] Pacemaker 10/21/[address] TRELL BARTLETT [id number] pulse generator, his bundle lead, right atrial lead Peripheral arterial disease (HCC) Rheumatic fever Steatosis, liver 03/26/2014 fatty liver on US. 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 Lua PACEMAKER 10/2019 PART. HYSTERECTOMY W/WO RMVL OVARIES/TUBES 1974 h/o cervical cancer ovaries remain PAST SURGICAL HISTORY OF 1996 Aortic valve repair, Dr. Apodaca PAST SURGICAL HISTORY OF 2001 [address] Beltrán, [facility] PAST SURGICAL HISTORY OF 2015 [...] - Exam was compared with the prior [facility] echocardiographic exam performed on 01/12/2022. Small [...] (FLUSH) INJECTION SYRINGE 3. Paroxysmal atrial fibrillation ([facility]) - ICD9: 427.31, ICD10: I48.0 Status post Watchman procedure. Patient has been maintained on low-dose aspirin. Repeat CBC is pending 4. Ascending aorta dilatation ([facility]) - ICD9: 447.71, ICD10: I77.810 5. Dilated cardiomyopathy ([facility]) - ICD9: 425.4, ICD10: I42.0 Patient maintained on Toprol and losartan. 6. Chronic combined systolic and diastolic CHF (congestive heart failure) ([facility]) - ICD9: 428.42, 428.0, ICD10: I50.42 Patient doing well on current diuretic therapy low-sodium diet 7. SSS (sick sinus syndrome) ([facility]) - ICD9: 427.81, ICD10: I49.5 8. S/P placement of cardiac pacemaker - ICD9: V45.01, ICD10: Z95.0 9. PAD (peripheral artery disease) ([facility]) - ICD9: 443.9, ICD10: I73.9 History of mild bilateral carotid artery disease. No symptoms for TIA or CVA. 10. Hyperlipidemia with target LDL less than 70 - ICD9: 272.4, ICD10: E78.5 Maintained on simvastatin 20 mg daily. Repeat fasting lipid panel - LIPID PANEL BASIC Carla Burdick MD documented in this encounterParkview Health02-27-2023 Miscellaneous Notes* Telephone Encounter - Margoth [...] 10/06/22 Margoth Bolaños MA documented in this encounterParkview Health01-18-2023 Miscellaneous Notes* Telephone Encounter - Mars Xiao - 07/22/2022 12:54 PM EST Study explained/reviewed with patient. Study related follow-up requirements were discussed. Risks, benefits, alternatives, personnel, and costs of the study explained/reviewed. Patient provided informed consent for review by email. Study related questions were addressed. Provided patient with contact information to call. Mars Xiao documented in this encounterParkview Health01-16-2023 Miscellaneous Notes* Telephone Encounter - Sheree Savage Ma - 07/20/2022 12:11 PM EST Faxed to [facility] at [phone] * Telephone Encounter - Sheree Saavge Ma - 07/08/2022 12:45 PM EST Request sent to radiology * Telephone Encounter - Doreen Le PA-C - 07/08/2022 10:37 AM EST Please have 02/21/[address] IVC PE from [facility] imported and reviewed by radiologist for comparison with 03/19/2022 CT chest w IVCON PE. Not sure if this is the right order or even if needs order. Telephone on 07/08/22 CONSULT TO RADIOLOGY ThanksEdmund PA-C documented in this encounterParkview Health01-03-2023 History of Present illness Narrative* Doreen Le [...] 1.00 - 4.00 k/uL 2.05 2.22 1.81 Harvey% % 12.7 12.3 12.6 Abs Harvey <0.87 k/uL 0.93 (H) 1.06 (H) 0.74 [...] artery Neurosurgeon Dr. Dianne Rogers, Susan Mtz [employer] 12/07/2017 note: f/u MRA 202012/02/2017 MRA brain [...] gangrene, without long-term current use of insulin ([facility]) Current medications: none Taking medication as directed [...] recent CT scans which were done in [facility]. Anemia, blood loss As above CBC [...] Pacemaker 10/21/[address] TRELL BARTLETT [id number] pulse generator, his bundle lead, right atrial lead Peripheral arterial disease (HCC) Rheumatic fever Steatosis, liver 03/26/2014 fatty liver on US. 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 Lua PACEMAKER 10/2019 PART. HYSTERECTOMY W/WO RMVL OVARIES/TUBES 1974 h/o cervical cancer ovaries remain PAST SURGICAL HISTORY OF 1996 Aortic valve repair, Dr. Apodaca PAST SURGICAL HISTORY OF 2001 [address] Beltrán, [facility] PAST SURGICAL HISTORY OF 2016 [...] TABLET BY MOUTH TWICE A DAY 60 [id number] furosemide (LASIX) 20 mg tablet Take 2 [...] continue medicatioins 3. SSS (sick sinus syndrome) ([facility]) - ICD9: 427.81, ICD10: I49.5 4. Atrial fibrillation, unspecified type ([facility]) - ICD9: 427.31, ICD10: I48.91 5. Presence of Watchman left atrial appendage closure device - ICD9: V45.09, ICD10: Z95.818 Currently in controlled regular rhythm with out signs of CHF Continue current meds. 6. Chronic combined systolic and diastolic CHF (congestive heart failure) ([facility]) - ICD9: 428.42, 428.0, ICD10: I50.42 7. S/P placement of cardiac pacemaker - ICD9: V45.01, ICD10: Z95.0 8. Dilated cardiomyopathy ([facility]) - ICD9: 425.4, ICD10: I42.0 Stable, continue to monitor 9. Ascending aorta dilatation ([facility]) - ICD9: 447.71, ICD10: [...] months Doreen Le PA-C documented in this encounterParkview Health11-21-2022 Miscellaneous Notes* Telephone Encounter - Lizeth Du LPN - 05/25/2022 7:25 AM EST Refill not appropriate at this time, according to records there should be at least 2 refills available. documented in this encounterParkview Health11-10-2022 History of Present illness Narrative* Sonny Lund MD - 05/14/2022 9:28 AM EST PATIENT NAME: Berta Sanhces. CLINIC NO: [id number]. ATTENDING PHYSICIAN: Sonny Lund MD. DATE OF SERVICE:05/14/2022. DIAGNOSIS: Iron deficiency anemia HPI: This is a 76-year-old lady with history of atrial fibrillation, prosthetic aortic valve replacement and congestive heart failure who presented to [facility] recently for decompensated heartfailure and severe [...] Abs Lymph 1.00 - 4.00 k/uL 1.81 Harvey% % 12.6 Abs Harvey <0.87 k/uL 0.74 Eosin% % 2.2 Abs [...] Cc: Doreen Le PA-C documented in this encounterParkview Health10-19-2022 Miscellaneous Notes* Telephone Encounter - Lizeth [...] 06-08-2022. Lizeth Mcknight LPN documented in this encounterParkview Health10-06-2022 Miscellaneous Notes* Telephone Encounter - Sheree Savage Ma - 04/09/2022 3:32 PM EDT Please schedule CT chest for 3 months. Thanks, Edmund Le PA-C documented in this encounterParkview Health10-06-2022 History of Present illness Narrative* Brayan [...] Pacemaker 10/21/[address] TRELL BARTLETT [id number] pulse generator, his bundle lead, right atrial lead Peripheral arterial disease (HCC) Rheumatic fever Steatosis, liver 03/26/2014 fatty liver on US. No gallstones Tachy-pavan syndrome (HCC) PAST SURGICAL HISTORY Procedure Laterality Date ABLATION 2019 for afib ANESTHESIA EXTERNAL MIDDLE & INNER EAR W/BX NOS 2003, 2004,04/30/15 CARDIOVERSION 2018 EGD 02/28/2021 ESOPHAGOGASTRODUODENOSCOPY TRANSORAL DIAGNOSTIC 02/28/2021 LAP COLECTOMY, SIGMOID W/ACADEMIC COACH N/A 07/18/2019 for colovesicle fistula - Dr. Mosley MASTOIDECTOMY Right 04/30/2015 cholesteatoma removed, Dr. Lua PACEMAKER 10/2019 PART. HYSTERECTOMY W/WO RMVL OVARIES/TUBES 1974 h/o cervical cancer ovaries remain PAST SURGICAL HISTORY OF 1996 Aortic valve repair, Dr. Apodaca PAST SURGICAL HISTORY OF 2001 [address] Beltrán, [facility] PAST SURGICAL HISTORY OF 2015 [...] 74 - 99 mg/dL Final Comment: The [place] Diabetes Association (ADA) provides guidance for cutoff [...] Standards of Medical Care in Diabetes 2016, [place] [employer]. Diabetes Care. 2016.39(Suppl 1). I [...] extrapolated by contextual derivation. documented in this encounterParkview Health10-05-2022 Miscellaneous Notes* Telephone Encounter - Daysi Gray [...] infusions. Ralph Mujica DO documented in this encounterParkview Health10-03-2022 Instructions* Patient Instructions* Doreen Le PA-C - [...] cup-Beef (cooked) 2 oz-Beet greens (cooked) 1/2 cup-Pembroke nuts 5 medium-Cereals 1 oz-Chicken (cooked) 3 [...] cup- Tongue 2 oz- Tuna 1/2 cup- Theodosia (cooked) 1 oz- Veal (cooked) 1 oz- Watermelon (6x11/2) 1 slice-Wheat Germ 2 tbsp. Iron supplements are absorbed best when taken between meals, with liquids other than milk, coffee, or tea. Taking them at bedtime often helps reduce the chance of nausea. If you can't tolerate daily, try at least three times a week. documented in this encounterParkview Health10-03-2022 History of Present illness Narrative* M Claudia Le PA-C - 04/06/2022 10:20 AM EDT 76 year old female with c/o here for follow hospital Not doing well Very SOB No stamina, very SOB. Mentioned iron infusions. Hospital discharge follow-up Facility [facility] Admission date 03/19/2022 Discharge date 03/22/2022 Pre-hospitalization details: See note 03/19/2022: CHF, EKG AF, hx GIB melena admitted 02/21-02/24/2022 [place]. 03/19/22 Sent from office to [facility] ED: VS 145/85-409-11-97.1F- 98% RA Exam + rales. 2/4+ pitting [...] Abs Lymph 1.00 - 4.00 k/uL 2.09 Harvey% % 9.6 Abs Harvey <0.87 k/uL 0.77 Eosin% % 1.9 Abs [...] control presents having taken a trip to [place] and having had no control over the food served for the amount of salt in it and had progressive swelling in her legs and then subsequently shortness of breath developing. A right 2.5 cm superior pole the rightkidney mass was found concerning for neoplasm that had been noted as long ago as June 2019. On return to [facility], she had presented to the [...] Review Reviewed by Walter Bates MD, Ph.D ([id number]) Protein, Total 6.3 - 8.0 g/dL 6.0 [...] 2 weeks for nephrology order is in process designer FOLLOW-UP: GI in 2 days scheduled, lung nodule clinic to be scheduled, urology to be scheduled, and nephrology in 4 to 6 weeks to be scheduled LABS AND PROCEDURES PENDING AT DISCHARGE: No pending results. INCIDENTAL OR ACTIONABLE FINDING (Last Refresh: 03/22/2022 2:27 PM) Test(s): CT CHEST W IVCON PE FOLLOW-UP APPOINTMENTS ALREADY SCHEDULED WITH A [facility] PROVIDER: Future Appointments Date Time Provider Department Center 03/30/2022 8:40 AM Carla Burdick MD [facility] Marie 04/14/2022 10:00 AM Albin Gu APRN.[facility] ALLERGIES Allergen Reactions Protamine Anaphylaxis Had [...] ESOPHAGOGASTRODUODENOSCOPY TRANSORAL DIAGNOSTIC 02/28/2021 LAP COLECTOMY, SIGMOID W/ACADEMIC COACH N/A 07/18/2019 for colovesicle fistula - Dr. Mosley MASTOIDECTOMY Right 04/30/2015 cholesteatoma removed, Dr. Lua PACEMAKER 10/2019 PART. HYSTERECTOMY W/WO RMVL OVARIES/TUBES 1973 h/o cervical cancer ovaries remain PAST SURGICAL HISTORY OF 1996 Aortic valve repair, Dr. Apodaca PAST SURGICAL HISTORY OF 2001 [address] 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 ([facility]) History of Pulmonary Embolism Ascending Aorta Dilatation ([facility]) Chronic Bilateral Pleural Effusions Colovesical Fistula Right Renal Mass Diverticulitis Large Intestine W/O Perforation Or Abscess W/O Bleeding Renal Cell Carcinoma, Right ([facility]) Iron Deficiency Anemia Hypomagnesemia Gastrointestinal Hemorrhage Associated With Acute Gastritis Esophageal Stenosis Dilated Cardiomyopathy ([facility]) Chronic Diastolic Congestive Heart Failure ([facility]) Sss (Sick Sinus Syndrome) ([facility]) Duodenal Ulcer Type 2 Diabetes Mellitus With Diabetic Peripheral Angiopathy Without Gangrene, Without Long-Term Current Use of Insulin ([facility]) Longstanding Persistent Atrial Fibrillation ([facility]) S/P Placement of Cardiac [...] (TOPEX) X (OR/PROCEDURE) PRSangeeta Gustafson MD [address] [place] at 03/03/22 1149 fentaNYL 50 mcg/mL injection [...] comparison. Doreen Le PA-C documented in this encounterParkview Health09-26-2022 Miscellaneous Notes* Telephone Encounter - Sigifredo [...] Thanks, Edmund Le PA-C documented in this encounterParkview Health09-26-2022 Instructions* Patient Instructions* Carla Burdick MD - 03/30/2022 9:13 AM EDT We are increasing the Toprol (Metoprolol succinate) to 50 mg two times per day We are replacing the Lisinopril with Losartan 25 mg once per day Repeat blood work 7-10 days after starting the Losartan documented in this encounterParkview Health09-26-2022 History of Present illness Narrative* Carla Burdick MD - 03/30/2022 8:40 AM EDT Images from the original note were not included. [facility]ART [facility] VASCULAR INSTITUTE SECTION OF REGIONAL CARDIOLOGY Cardiology ([facility]) [address] [facility] [id number] OUTPATIENT VISIT DATE 03/30/2022 PRIMARY CARE PHYSICIAN: Doreen Le [address] [place] [address] HISTORY OF PRESENT ILLNESS: Ms. Sanches is a 76 year old woman with a history of remote aortic valve replacement with homograft in 1996 and possible repair of the ascending aorta, hypertension, dyslipidemia, atrial fibrillation with history of pulmonary vein isolation procedures, pacemaker placement recent watchman procedurewho presents for follow-up after hospital admission for congestive heart failure. She had gone on acruise to [place] and developed lower extremity edema and worsening shortness of breath. On return to [place], she had worsening symptoms of weight gain, PND, and orthopnea symptoms. She was seen at [facility] and was treated for acute systolic [...] Pacemaker 10/21/[address] TRELL BARTLETT [id number] pulse generator, his bundle lead, right atrial lead Peripheral arterial disease (HCC) Rheumatic fever Steatosis, liver 03/26/2014 fatty liver on US. 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 Lua PACEMAKER 10/2019 PART. HYSTERECTOMY W/WO RMVL OVARIES/TUBES 1974 h/o cervical cancer ovaries remain PAST SURGICAL HISTORY OF 1996 Aortic valve repair, Dr. Apodaca PAST SURGICAL HISTORY OF 2001 [address] Beltrán, [facility] PAST SURGICAL HISTORY OF 2016 [...] 09/10/2021: LBB in RV port PRESENTING EGM: AFL/PSYCHODRAMATIST BATTERY STATUS: Estimated time remaining to YUE [...] 2019. Carla Burdick MD documented in this encounterParkview Health09-17-2022 Miscellaneous Notes* Telephone Encounter - Juan Diego Carroll Jr., MD - 03/21/2022 10:51 AM EDT [facility] consult Needs appt with kan in [place] * Telephone Encounter - Juan Diego Carroll Jr., MD - 03/21/2022 10:51 AM EDT ----- Message from Huy Chauhan MD sent at 03/21/2022 9:11 AM EDT ----- Regarding: Renal mass Thank you Mike. Son documented in this encounterParkview Health09-16-2022 History of Present illness Narrative* Sheridan Cervantes RN - 03/20/2022 8:22 AM EDT TRANSITION CARE MANAGEMENT (TCM) FOLLOW-UP NOTE Provider Action/FYI Chart reviewed. TCM removed name from TEAMS due to [facility] admission 03/19/22 chf. TCM follow up pending hospital discharge disposition. Summary: Pt discharged from [facility] on 02/24. Admitted for: GI bleeding diverticular bleed/acute blood loss anemia [employer] plan for next outreach: No further follow up needed at this time Signature Sheridan Cervantes RN March 20, 2022 documented in this encounterParkview Health09-15-2022 History of Past illness Narrative* Problem [...] get beds in local hospital, transferred to [facility]. Anemia due to GI blood loss [...] 12/22/2018 Prosthetic aortic valve stenosis 11/19/2016 12/22/2018 nursing home current use of antiarrhythmic medical therapy [...] diarrhea. Patient had her eyes examined in [place] this year and was told that [...] of this encounter (statuses as of 03/23/2022) [facility]-15-[facility] History of Past illness Narrative* Problem [...] get beds in local hospital, transferred to [facility]. Anemia due to GI blood loss [...] 12/22/2018 Prosthetic aortic valve stenosis 11/19/2016 12/22/2018 manager terminal current use of antiarrhythmic medical therapy 10/20/2016 [...] diarrhea. Patient had her eyes examined in [place] this year and was told that [...] of this encounter (statuses as of 03/28/2022) [facility] History of Past illness Narrative* Problem [...] get beds in local hospital, transferred to [facility]. Anemia due to GI blood loss [...] 12/22/2018 Prosthetic aortic valve stenosis 11/19/2016 12/22/2018 manager terminal current use of antiarrhythmic medical therapy 10/20/2016 [...] diarrhea. Patient had her eyes examined in [place] this year and was told that [...] of this encounter (statuses as of 03/30/2022) [facility] History of Past illness Narrative* Problem [...] get beds in local hospital, transferred to [facility]. Anemia due to GI blood loss [...] 12/22/2018 Prosthetic aortic valve stenosis 11/19/2016 12/22/2018 nursing home current use of antiarrhythmic medical therapy [...] diarrhea. Patient had her eyes examined in [place] this year and was told that she had no retinopathy. December 09.5, she has been running around that for the last couple years, didn't take careof he diabetes. Last Assessment & Plan: Last a1c 7.1 on 12/4/19 Not on any home meds at this time (intolerance to metformin in past) Hemoglobin A1C (%) Date Value 10/24/2019 7.0 Follow up with pcp for discussion on initiating therapy documented as of this encounter (statuses as of 03/30/2022) [facility] History of Past illness Narrative* Problem [...] get beds in local hospital, transferred to [facility]. Anemia due to GI blood loss [...] 12/22/2018 Prosthetic aortic valve stenosis 11/19/2016 12/22/2018 nursing home current use of antiarrhythmic medical therapy [...] diarrhea. Patient had her eyes examined in [place] this year and was told that [...] of this encounter (statuses as of 04/06/2022) [facility] of Past illness Narrative* Problem [...] get beds in local hospital, transferred to [facility]. Anemia due to GI blood loss [...] 12/22/2018 Prosthetic aortic valve stenosis 11/19/2016 12/22/2018 manager terminal current use of antiarrhythmic medical therapy 10/20/2016 [...] diarrhea. Patient had her eyes examined in [place] this year and was told that [...] of this encounter (statuses as of 04/07/2022) [facility] of Past illness Narrative* Problem [...] get beds in local hospital, transferred to [facility]. Anemia due to GI blood loss [...] 12/22/2018 Prosthetic aortic valve stenosis 11/19/2016 12/22/2018 manager terminal current use of antiarrhythmic medical therapy 10/20/2016 [...] diarrhea. Patient had her eyes examined in [place] this year and was told that [...] of this encounter (statuses as of 04/08/2022) [facility] of Past illness Narrative* Problem [...] get beds in local hospital, transferred to [facility]. Anemia due to GI blood loss [...] 12/22/2018 Prosthetic aortic valve stenosis 11/19/2016 12/22/2018 nursing home current use of antiarrhythmic medical therapy [...] diarrhea. Patient had her eyes examined in [place] this year and was told that [...] of this encounter (statuses as of 04/09/2022) [facility] of Past illness Narrative* Problem [...] get beds in local hospital, transferred to [facility]. Anemia due to GI blood loss [...] 12/22/2018 Prosthetic aortic valve stenosis 11/19/2016 12/22/2018 nursing home current use of antiarrhythmic medical therapy [...] diarrhea. Patient had her eyes examined in [place] this year and was told that [...] of this encounter (statuses as of 04/17/2022) [facility] of Past illness Narrative* Problem [...] get beds in local hospital, transferred to [facility]. Anemia due to GI blood loss [...] 12/22/2018 Prosthetic aortic valve stenosis 11/19/2016 12/22/2018 nursing home current use of antiarrhythmic medical therapy [...] diarrhea. Patient had her eyes examined in [place] this year and was told that [...] of this encounter (statuses as of 04/20/2022) [facility] of Past illness Narrative* Problem [...] get beds in local hospital, transferred to [facility]. Anemia due to GI blood loss 10/24/201903/05 Last Assessment & Plan: Assessment & PLAN: See above Renal cell carcinoma 10/24/2019 09/12/2021 Last Assessment & Plan: Currently following with urology (Dr. Krishnamurthi) outpatient for routine surveillance imaging MRI kidney [...] 12/22/2018 Prosthetic aortic valve stenosis 11/19/2016 12/22/2018 nursing home current use of antiarrhythmic medical therapy [...] diarrhea. Patient had her eyes examined in [place] this year and was told that [...] of this encounter (statuses as of 04/22/2022) [facility]2022 History of Past illness Narrative* Problem [...] get beds in local hospital, transferred to [facility]. Anemia due to GI blood loss [...] 12/22/2018 Prosthetic aortic valve stenosis 11/19/2016 12/22/2018 manager terminal current use of antiarrhythmic medical therapy 10/20/2016 [...] diarrhea. Patient had her eyes examined in [place] this year and was told that [...] of this encounter (statuses as of 04/23/2022) [facility]09-15-2022 History of Past illness Narrative* Problem [...] get beds in local hospital, transferred to [facility]. Anemia due to GI blood loss [...] 12/22/2018 Prosthetic aortic valve stenosis 11/19/2016 12/22/2018 nursing home current use of antiarrhythmic medical therapy [...] diarrhea. Patient had her eyes examined in [place] this year and was told that [...] of this encounter (statuses as of 04/28/2022) [facility]2022 History of Past illness Narrative* Problem [...] get beds in local hospital, transferred to [facility]. Anemia due to GI blood loss [...] 12/22/2018 Prosthetic aortic valve stenosis 11/19/2016 12/22/2018 manager terminal current use of antiarrhythmic medical therapy 10/20/2016 [...] diarrhea. Patient had her eyes examined in [place] this year and was told that [...] of this encounter (statuses as of 05/15/2022) [facility] History of Past illness Narrative* Problem [...] get beds in local hospital, transferred to [facility]. Anemia due to GI blood loss [...] 12/22/2018 Prosthetic aortic valve stenosis 11/19/2016 12/22/2018 manager terminal current use of antiarrhythmic medical therapy 10/20/2016 [...] diarrhea. Patient had her eyes examined in [place] this year and was told that [...] of this encounter (statuses as of 05/25/2022) [facility] History of Past illness Narrative* Problem [...] get beds in local hospital, transferred to [facility]. Anemia due to GI blood loss [...] 12/22/2018 Prosthetic aortic valve stenosis 11/19/2016 12/22/2018 nursing home current use of antiarrhythmic medical therapy [...] diarrhea. Patient had her eyes examined in [place] this year and was told that [...] of this encounter (statuses as of 05/29/2022) [facility] History of Past illness Narrative* Problem [...] get beds in local hospital, transferred to [facility]. Anemia due to GI blood loss [...] 12/22/2018 Prosthetic aortic valve stenosis 11/19/2016 12/22/2018 manager terminal current use of antiarrhythmic medical therapy 10/20/2016 [...] diarrhea. Patient had her eyes examined in [place] this year and was told that [...] of this encounter (statuses as of 07/06/2022) [facility] History of Past illness Narrative* Problem [...] get beds in local hospital, transferred to [facility]. Anemia due to GI blood loss [...] 12/22/2018 Prosthetic aortic valve stenosis 11/19/2016 12/22/2018 nursing home current use of antiarrhythmic medical therapy [...] diarrhea. Patient had her eyes examined in [place] this year and was told that [...] of this encounter (statuses as of 07/09/2022) [facility] History of Past illness Narrative* Problem [...] get beds in local hospital, transferred to [facility]. Anemia due to GI blood loss [...] 12/22/2018 Prosthetic aortic valve stenosis 11/19/2016 12/22/2018 manager terminal current use of antiarrhythmic medical therapy 10/20/2016 [...] diarrhea. Patient had her eyes examined in [place] this year and was told that [...] of this encounter (statuses as of 07/22/2022) [facility] History of Past illness Narrative* Problem [...] get beds in local hospital, transferred to [facility]. Anemia due to GI blood loss [...] 12/22/2018 Prosthetic aortic valve stenosis 11/19/2016 12/22/2018 manager terminal current use of antiarrhythmic medical therapy 10/20/2016 [...] diarrhea. Patient had her eyes examined in [place] this year and was told that [...] of this encounter (statuses as of 07/22/2022) [facility] History of Past illness Narrative* Problem [...] get beds in local hospital, transferred to [facility]. Anemia due to GI blood loss [...] 12/22/2018 Prosthetic aortic valve stenosis 11/19/2016 12/22/2018 manager terminal current use of antiarrhythmic medical therapy 10/20/2016 [...] diarrhea. Patient had her eyes examined in [place] this year and was told that [...] of this encounter (statuses as of 09/01/2022) [facility] History of Past illness Narrative* Problem [...] get beds in local hospital, transferred to [facility]. Anemia due to GI blood loss [...] 12/22/2018 Prosthetic aortic valve stenosis 11/19/2016 12/22/2018 manager terminal current use of antiarrhythmic medical therapy 10/20/2016 [...] diarrhea. Patient had her eyes examined in [place] this year and was told that [...] of this encounter (statuses as of 09/27/2022) [facility] History of Past illness Narrative* Problem [...] get beds in local hospital, transferred to [facility]. Anemia due to GI blood loss [...] 12/22/2018 Prosthetic aortic valve stenosis 11/19/2016 12/22/2018 nursing home current use of antiarrhythmic medical therapy [...] diarrhea. Patient had her eyes examined in [place] this year and was told that [...] of this encounter (statuses as of 09/28/2022) [facility] History of Past illness Narrative* Problem [...] get beds in local hospital, transferred to [facility]. Anemia due to GI blood loss [...] 12/22/2018 Prosthetic aortic valve stenosis 11/19/2016 12/22/2018 nursing home current use of antiarrhythmic medical therapy [...] diarrhea. Patient had her eyes examined in [place] this year and was told that [...] of this encounter (statuses as of 09/29/2022) [facility] History of Past illness Narrative* Problem [...] get beds in local hospital, transferred to [facility]. Anemia due to GI blood loss [...] 12/22/2018 Prosthetic aortic valve stenosis 11/19/2016 12/22/2018 manager terminal current use of antiarrhythmic medical therapy 10/20/2016 [...] diarrhea. Patient had her eyes examined in [place] this year and was told that [...] of this encounter (statuses as of 10/07/2022) [facility] History of Past illness Narrative* Problem [...] get beds in local hospital, transferred to [facility]. Anemia due to GI blood loss [...] 12/22/2018 Prosthetic aortic valve stenosis 11/19/2016 12/22/2018 nursing home current use of antiarrhythmic medical therapy [...] diarrhea. Patient had her eyes examined in [place] this year and was told that [...] of this encounter (statuses as of 12/29/2022) [facility] History of Past illness Narrative* Problem [...] get beds in local hospital, transferred to [facility]. Anemia due to GI blood loss [...] 12/22/2018 Prosthetic aortic valve stenosis 11/19/2016 12/22/2018 nursing home current use of ant iarrhythmic medical [...] diarrhea. Patient had her eyes examined in [place] this year and was told that [...] of this encounter (statuses as of 01/09/2023) [facility] History of Past illness Narrative* Problem [...] get beds in local hospital, transferred to [facility]. Anemia due to GI blood loss [...] 12/22/2018 Prosthetic aortic valve stenosis 11/19/2016 12/22/2018 manager terminal current use of ant iarrhythmic medical therapy [...] diarrhea. Patient had her eyes examined in [place] this year and was told that [...] of this encounter (statuses as of 01/28/2023) [facility] History of Past illness Narrative* Problem [...] get beds in local hospital, transferred to [facility]. Anemia due to GI blood loss [...] 12/22/2018 Prosthetic aortic valve stenosis 11/19/2016 12/22/2018 nursing home current use of ant iarrhythmic medical [...] diarrhea. Patient had her eyes examined in [place] this year and was told that [...] of this encounter (statuses as of 03/15/2023) [facility] History of Past illness Narrative* Problem [...] get beds in local hospital, transferred to [facility]. Anemia due to GI blood loss [...] 12/22/2018 Prosthetic aortic valve stenosis 11/19/2016 12/22/2018 nursing home current use of ant iarrhythmic medical [...] diarrhea. Patient had her eyes examined in [place] this year and was told that [...] of this encounter (statuses as of 03/28/2023) [facility] History of Past illness Narrative* Problem [...] get beds in local hospital, transferred to [facility]. Anemia due to GI blood loss [...] 12/22/2018 Prosthetic aortic valve stenosis 11/19/2016 12/22/2018 nursing home current use of ant iarrhythmic medical [...] diarrhea. Patient had her eyes examined in [place] this year and was told that [...] of this encounter (statuses as of 05/07/2023) [facility] History of Past illness Narrative* Problem [...] get beds in local hospital, transferred to [facility]. Anemia due to GI blood loss [...] 12/22/2018 Prosthetic aortic valve stenosis 11/19/2016 12/22/2018 nursing home current use of ant iarrhythmic medical [...] diarrhea. Patient had her eyes examined in [place] this year and was told that [...] of this encounter (statuses as of 05/07/2023) [facility] History of Past illness Narrative* Problem [...] get beds in local hospital, transferred to [facility]. Anemia due to GI blood loss 10/24/2019 03/22/2022 Last Assessment & Plan: Assessment & PLAN: See above Renal cell carcinoma 10/24/2019 022 Last Assessment & Plan: Currently following with urology (Dr. Krishnamurthi) outpatient for routine surveillance imaging MRI kidney [...] 12/22/2018 Prosthetic aortic valve stenosis 11/19/2016 12/22/2018 manager terminal current use of ant iarrhythmic medical therapy [...] diarrhea. Patient had her eyes examined in [place] this year and was told that [...] of this encounter (statuses as of 05/21/2023) [facility] History of Past illness Narrative* Problem [...] get beds in local hospital, transferred to [facility]. Anemia due to GI blood loss [...] 12/22/2018 Prosthetic aortic valve stenosis 11/19/2016 12/22/2018 nursing home current use of ant iarrhythmic medical [...] diarrhea. Patient had her eyes examined in [place] this year and was told that [...] of this encounter (statuses as of 06/08/2023) [facility] History of Past illness Narrative* Problem [...] get beds in local hospital, transferred to [facility]. Anemia due to GI blood loss [...] 12/22/2018 Prosthetic aortic valve stenosis 11/19/2016 12/22/2018 manager terminal current use of ant iarrhythmic medical therapy [...] diarrhea. Patient had her eyes examined in [place] this year and was told that [...] of this encounter (statuses as of 07/05/2023) [facility] History of Past illness Narrative* Problem [...] get beds in local hospital, transferred to [facility]. Anemia due to GI blood loss [...] 12/22/2018 Prosthetic aortic valve stenosis 11/19/2016 12/22/2018 nursing home current use of ant iarrhythmic medical [...] diarrhea. Patient had her eyes examined in [place] this year and was told that [...] of this encounter (statuses as of 10/15/2023) [facility] History of Past illness Narrative* Problem [...] get beds in local hospital, transferred to [facility]. Anemia due to GI blood loss [...] 12/22/2018 Prosthetic aortic valve stenosis 11/19/2016 12/22/2018 manager terminal current use of ant iarrhythmic medical therapy [...] diarrhea. Patient had her eyes examined in [place] this year and was told that [...] of this encounter (statuses as of 10/16/2023) [facility] History of Past illness Narrative* Problem [...] get beds in local hospital, transferred to [facility]. Anemia due to GI blood loss [...] 12/22/2018 Prosthetic aortic valve stenosis 11/19/2016 12/22/2018 nursing home current use of ant iarrhythmic medical [...] diarrhea. Patient had her eyes examined in [place] this year and was told that [...] of this encounter (statuses as of 10/21/2023) [facility]-15-2022 History of Present illness Narrative* M Claudia [...] warm, heavy No pain. Got back from [place] 2am this morning Able to lay supine. No Admitted [facility] 02/21-02/24/2022 for persistent melena, progressive anemia [...] prosthetic valve #28, 2-3+ AR PV tr GA Component Latest Ref Rng & Units 02/23/2022 [...] Lymph 1.00 - 4.00 k/uL 2.31 2.51 Harvey% % 12.2 12.4 Abs Harvey <0.87 k/uL 0.94 (H) 1.04 (H) Eosin% [...] Pacemaker 10/21/[address] TRELL BARTLETT [id number] pulse generator, his bundle lead, right atrial lead Peripheral arterial disease (HCC) Rheumatic fever Steatosis, liver 03/26/2014 fatty liver on US. 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 Lua PACEMAKER 10/2019 PART. HYSTERECTOMY W/WO RMVL OVARIES/TUBES 1974 h/o cervical cancer ovaries remain PAST SURGICAL HISTORY OF 1996 Aortic valve repair, Dr. Apodaca PAST SURGICAL HISTORY OF 2001 [address] [facility] H[facility] OF 2016 clipping [...] (TOPEX) X (OR/PROCEDURE) PRSangeeta Gustafson MD [address] [place] at 03/03/22 1149 fentaNYL 50 mcg/mL injection [...] <130/80 Doreen Le PA-C documented in this encounterParkview [facility]09-[facility]22 History of Present illness Narrative* Sheridan Cervantes RN - 03/05/2022 12:39 PM EDT TRANSITION CARE MANAGEMENT (TCM) FOLLOW-UP NOTE Provider Action/FYI Chart reviewed, TCM follow up call deferred due to 03/03 office visit with JASPREET Torres. Summary: Pt discharged from [facility] on 02/24. Admitted for: PRINCIPAL DIAGNOSIS: GI bleeding diverticular bleed/acute blood loss anemia [employer] plan for next outreach: Will follow up Signature Sheridan Cervantes RN March 05, 2022 documented in this encounterParkview Health08-31-2022 Miscellaneous Notes* Addendum Note - Radha Torres APRN.CNP - 03/04/2022 10:54 AM EDTAddended by: RADHA TORRES on: 03/04/2022 10:54 AM Modules accepted: Orders, SmartSet * Addendum Note - Radha Torres APRN.CNP - 03/04/2022 9:46 AM EDTAddended by: RADHA TORRES on: 03/04/2022 09:46 AM Modules accepted: Orders documented in this encounterParkview Health08-30-2022 History of Present illness Narrative* Radha Torres APRN.CNP - 03/03/2022 12:00 PM EDT Images from the original note were not included. [facility] [place] [facility] Mel[facility]dez Department of Cardiovascular Medicine SECTION OF CARDIAC PACING and ELECTROPHYSIOLOGY OUTPATIENT VISIT DATE March 03, 2022 OUTPATIENT VISIT TYPE ESTABLISHED PRIMARY CARE PHYSICIAN: Doreen Le [address] [place] [address] CHIEF COMPLAINT: Post Watchman follow up HISTORY [...] upper and lower endoscopy were non diagnostic. [id number] score: 7 (congestive heart failure, hypertension, age [...] Pacemaker 10/21/[address] TRELL BARTLETT [id number] pulse generator, his bundle lead, right atrial lead Peripheral arterial disease (HCC) Rheumatic fever Steatosis, liver 03/26/2014 fatty liver on US. 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 Lua PACEMAKER 10/2019 PART. HYSTERECTOMY W/WO RMVL OVARIES/TUBES 1974 h/o cervical cancer ovaries remain PAST SURGICAL HISTORY OF 1996 Aortic valve repair, Dr. Apodaca PAST SURGICAL HISTORY OF 2001 [address] Beltrán, [facility] PAST SURGICAL HISTORY OF 2016 [...] yearly in-clinic device checks. Ying Hart RN [place] to Dr. Fay in Dr. Gomez's absence [...] assess as well. - The following is patient account representative of measurements of LAXMI dimensions from [...] FOR LVH, MAY BE NORMAL VARIANT ( Callery product ) ABNORMAL ECG ABDIEL: CONCLUSIONS: - [...] upper and lower endoscopy were non diagnostic. [id number] score: 7 (congestive heart failure, hypertension, age [...] INFORMATION: Radha Torres APRN.CNP documented in this encounterParkview Health08-30-2022 Nurse Note* Alexandre Avalos RN - [...] RN In Department: CARDIOLOGY documented in this encounterParkview Health08-29-2022 Miscellaneous Notes* Telephone Encounter - Saima [...] In Department of CARDIOLOGY. documented in this encounterParkview Health08-24-2022 History of Present illness Narrative* Harika Tomas RN - 02/25/2022 2:27 PM EDT [facility] Home Visit Referral Source of Stratification: [facility] Hospital Admission Status: Discharged Readmission Risk [...] PROGRAM Provider Action/FYI: SUMMARY: Pt discharged from [facility] on 02/24. Admitted for: PRINCIPAL DIAGNOSIS: GI bleeding diverticular bleed/acute blood loss anemia Contact made with patient: No - 2nd unsuccessful attempt - end outreach and close encounter Outreach ended Harika Tomas RN BSN [facility] [phone] * Harika Tomas RN - 02/25/2022 10:14 AM EDT TCM Home Visit Referral Source of Stratification: [facility] Admission Status: Discharged Readmission Risk Score: 18 [...] today or tomorrow SUMMARY: Pt discharged from [facility] on 02/24. Admitted for: PRINCIPAL DIAGNOSIS: GI bleeding diverticular bleed/acute blood loss anemia Contact made with patient: No - next outreach attempt will be on next day Outreach ended Harika LOPEZ [facility] [phone] documented in this encounterParkview Health08-21-2022 History of Past illness Narrative* Problem [...] get beds in local hospital, transferred to [facility]. 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 Patient had her eyes examined in [place] this year and was told that [...] of this encounter (statuses as of 02/25/2022) [facility] History of Past illness Narrative* Problem [...] get beds in local hospital, transferred to [facility]. Anemia 10/24/2019 09/12/2021 Last Assessment & [...] 12/22/2018 Prosthetic aortic valve stenosis 11/19/2016 12/22/2018 manager terminal current use of antiarrhythmic medical therapy 10/20/2016 [...] diarrhea. Patient had her eyes examined in [place] this year and was told that [...] of this encounter (statuses as of 03/02/2022) [facility] History of Past illness Narrative* Problem [...] get beds in local hospital, transferred to [facility]. 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 Patient had her eyes examined in [place] this year and was told that [...] of this encounter (statuses as of 03/03/2022) [facility] History of Past illness Narrative* Problem [...] get beds in local hospital, transferred to [facility]. 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 Patient had her eyes examined in [place] this year and was told that [...] of this encounter (statuses as of 03/04/2022) [facility] History of Past illness Narrative* Problem [...] get beds in local hospital, transferred to [facility]. Anemia 10/24/2019 09/12/2021 Last Assessment & [...] 12/22/2018 Prosthetic aortic valve stenosis 11/19/2016 12/22/2018 manager terminal current use of antiarrhythmic medical therapy 10/20/2016 [...] diarrhea. Patient had her eyes examined in [place] this year and was told that [...] of this encounter (statuses as of 03/05/2022) [facility] History of Past illness Narrative* Problem [...] get beds in local hospital, transferred to [facility]. 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 Patient had her eyes examined in [place] this year and was told that [...] of this encounter (statuses as of 03/11/2022) [facility] History of Past illness Narrative* Problem [...] get beds in local hospital, transferred to [facility]. Anemia 10/24/2019 09/12/2021 Last Assessment & [...] 12/22/2018 Prosthetic aortic valve stenosis 11/19/2016 12/22/2018 manager terminal current use of antiarrhythmic medical therapy 10/20/2016 [...] diarrhea. Patient had her eyes examined in [place] this year and was told that [...] of this encounter (statuses as of 03/20/2022) [facility] of Past illness Narrative* Problem [...] get beds in local hospital, transferred to [facility]. 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 Patient had her eyes examined in [place] this year and was told that [...] of this encounter (statuses as of 03/20/2022) [place] [id number] History of Past illness Narrative* Problem Noted [...] get beds in local hospital, transferred to [facility]. Renal cell carcinoma 10/24/2019 09/12/2021 Last [...] 12/22/2018 Prosthetic aortic valve stenosis 11/19/2016 12/22/2018 nursing home current use of antiarrhythmic medical therapy [...] diarrhea. Patient had her eyes examined in [place] this year and was told that [...] of this encounter (statuses as of 03/21/2022) [facility] Miscellaneous Notes* Telephone Encounter - Rojelio [...] testing. Giovanna Powell RN documented in this encounterParkview Health08-19-2022 History of Present illness Narrative* Doreen Le [...] anxious about potential risk of having to [employer] [place] with family. Component Latest Ref Rng & [...] Pacemaker 10/21/[address] TRELL BARTLETT [id number] pulse generator, his bundle lead, right atrial lead Peripheral arterial disease (HCC) Rheumatic fever Steatosis, liver 03/26/2014 fatty liver on US. 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 Lua PACEMAKER 10/2019 PART. HYSTERECTOMY W/WO RMVL OVARIES/TUBES 1974 h/o cervical cancer ovaries remain PAST SURGICAL HISTORY OF 1996 Aortic valve repair, Dr. Apodaca PAST SURGICAL HISTORY OF 2001 [address] Beltrán, [facility] PAST SURGICAL HISTORY OF 2015 [...] PNL Doreen Le PA-C documented in this encounterParkview Health07-20-2022 Miscellaneous Notes* Telephone Encounter - Deonna Bryant - 01/21/2022 10:30 AM EDT January 21, 2022 Patient Contact Number: [phone] (home) [phone] (cell) Patient last seen within the last year: Yes Reason for Call: Patient called to schedule follow up from Watchman procedure. Order for ABDIEL needs to be placed (can be done by CHEMICAL RESEARCH TECHNICIAN) and patient should contact office as soon as ABDIEL is done so it can be reviewed (should be done 45 days after the procedure). CHEMICAL RESEARCH TECHNICIAN: Please place Order for ABDIEL. Admin to request ABDIEL for after 02/26/2022 but before 03/07/2022. Thank you, Deonna Bryant, Admin documented in this encounterParkview Health07-18-2022 Miscellaneous Notes* Telephone Encounter - Ivory Carrion [facility] - 01/19/2022 11:05 AM EDT Call from pharmacy requesting refill. Pending Prescriptions Disp Refills ASPIRIN 81 MG CHEWABLE TABLET 90 tablet 3 Sig: Take 1 tablet by mouth once daily. BRAYAN: No Patient last seen 01/09/2022 Ivory Graham documented in this encounterParkview Health07-15-2022 Instructions* Patient Instructions* Doreen Le PA-C - [...] keep your stress under control. Published by [employer]. This content is reviewed periodically and is subject to change as new health information becomes available. The information is intended to inform and educate and is not a replacement for medical evaluation, advice, diagnosis or treatment by a healthcare professional. Developed by [employer]. Copyright 2005 [employer] and/or one of its subsidiaries. All Rights Reserved. documented in this encounterParkview Health07-15-2022 History of Present illness Narrative* Doreen Le [...] Pacemaker 10/21/[address] TRELL BARTLETT [id number] pulse generator, his bundle lead, right atrial lead Peripheral arterial disease (HCC) Rheumatic fever Steatosis, liver 03/26/2014 fatty liver on US. 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 Lua PACEMAKER 10/2019 PART. HYSTERECTOMY W/WO RMVL OVARIES/TUBES 1974 h/o cervical cancer ovaries remain PAST SURGICAL HISTORY OF 1996 Aortic valve repair, Dr. Apodaca PAST SURGICAL HISTORY OF 2001 [address] Beltrán, [facility] PAST SURGICAL HISTORY OF 2015 [...] Resp 16 Wt 64.4 kg (142 lb) [id number]% BMI 25.15 kg/m Pleasant frail adult womanin [...] OINTMENT Doreen Le PA-C documented in this encounterParkview Health07-08-2022 History of Present illness Narrative* Diane [...] discussed with Physician, nurse practitioner or Physician temporary administrative assistant upon discharge Instructions for transmitting EKG to Monitoring Center 3 month follow up instructions Contact number for information and questions Patient Evaluation: Verbalizes understanding Follow Up Plan: Follow up as directed by MD. Supplemental Material Given: Written Material Patient education regarding radiation exposure. Instructed By Diane Blanchard RN. In Department of CARDIOLOGY. documented in this encounterParkview Health07-08-2022 Instructions* Patient Instructions* Emilia Diallo MD - 01/09/2022 2:19 PM EDT Proceed with your Watchman evaluation. Consider discussing a hematology evaluation in addition to further GI work up as appropriate. Follow up with Dr. Burdick as planned. Follow up with PCP re: prevention in addition to follow up of the kidney mass that was identified on the CT. documented in this encounterParkview Health07-08-2022 History of Present illness Narrative* Emilia Diallo MD - 01/09/2022 2:15 PM EDT Images from the original note were not included. [facility] [place] Martha Mel[facility]dez Department of Cardiovascular Medicine SECTION OF CLINICAL CARDIOLOGY OUTPATIENT VISIT DATE January 09, 2022 OUTPATIENT VISIT TYPE CON PRIMARY CARE PHYSICIAN: Doreen Le [address] [place] [address] REFERRING PHYSICIAN: Chandler Swan [address] [facility] [id number] CHIEF COMPLAINT: Shared decision making for Watchman [...] 7.7. Received 2 unit(s) PRBCs last week. [id number] score: 7 (congestive heart failure, hypertension, age >/=75, diabetes, vascular disease, female) - on Xarelto 15 mg HASBLED score: 4 (HTN, CKD, bleeding, elderly) She complains of chronic shortness of breath and fatigue. She denies chest pain, orthopnea, cough, edema, palpitations, PND, lightheadedness or syncope. Nursing Intake : Ms. 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 Lua 10/2019: PACEMAKER 1974: PART. HYSTERECTOMY W/WO RMVL OVARIES/TUBES Comment: h/o cervical cancer ovaries remain 1996: PAST SURGICAL HISTORY OF Comment: Aortic valve repair, Dr. Apodaca 2001: PAST SURGICAL HISTORY OF Comment: [address] Beltrán, [facility] 2016: PAST SURGICAL HISTORY OF [...] Abs Lymph 1.00 - 4.00 k/uL 1.82 Harvey% % 14.0 Abs Harvey <0.87 k/uL 1.27 (H) Eosin% % 1.9 [...] etiology while on Xarelto. Unknown etiology. Her ACYSY0Soxs is elevated at 7 portenidng an increased risk of CVA and her HASBLED score is elevated. It is reasonable to consider Watchman procedure as after undergoing a LAXMI closure procedure, she will not need correction anticoagulation which eliminates anticoagulation side effects and major bleeding risk. After today's visit with Mrs. Sanches, which was dedicated solely for shared decision making visitregarding LAXMI closure device, she decided to proceed with the LAXMI appendage closure procedure [facility] the [facility]. Of note, she should continue with [...] 09, 2022, 5:59 PM documented in this encounterParkview Health07-01-2022 History and physical note * Chai [...] likely gallbladder issues. When she presented to [facility] department on February 13, 2018 she was [...] She underwent upper and lower endoscopy at [facility] also for anemia on October 26, 2019 [...] Pacemaker 10/21/[address] TRELL BARTLETT [id number] pulse generator, his bundle lead, right atrial lead Peripheral arterial disease (HCC) Rheumatic fever Steatosis, liver 03/26/2014 fatty liver on US. 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 Lua PACEMAKER 10/2019 PART. HYSTERECTOMY W/WO RMVL OVARIES/TUBES 1973 h/o cervical cancer ovaries remain PAST SURGICAL HISTORY OF 1996 Aortic valve repair, Dr. Apodaca PAST SURGICAL HISTORY OF 2001 [address] Beltrán, [facility] PAST SURGICAL HISTORY OF 2015 [...] and reviewed by me Nursing Notes: Stacie Mancera LPN 01/01/2022 9:48 [...] her for urgent upper endoscopy tomorrow in [place]. Diagnoses: (D50.0) Anemia, blood loss (primary encounter [...] needed. Chai Encinas MD documented in this encounterParkview Health06-30-2022 Miscellaneous Notes* Telephone Encounter - Yessenia Monroe - 01/01/2022 10:27 AM EDT 01-02-2022 [place] documented in this encounterParkview Health06-30-2022 History of Present illness Narrative* Chai Encinas MD - 01/01/2022 9:52 AM EDT HISTORY AND PHYSICAL Berta Manzanares Verónica 1945 REFERRING PHYSICIAN: Doreen Le PA-C [...] likely gallbladder issues. When she presented to [facility] department on February 13, 2018 she was [...] She underwent upper and lower endoscopy at [facility] also for anemia on October 26, 2019 [...] Pacemaker 10/21/[address] TRELL BARTLETT [id number] pulse generator, his bundle lead, right atrial lead Peripheral arterial disease (HCC) Rheumatic fever Steatosis, liver 03/26/2014 fatty liver on US. 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 Lua PACEMAKER 10/2019 PART. HYSTERECTOMY W/WO RMVL OVARIES/TUBES 1974 h/o cervical cancer ovaries remain PAST SURGICAL HISTORY OF 1996 Aortic valve repair, Dr. Apodaca PAST SURGICAL HISTORY OF 2001 [address] Beltrán, [facility] PAST SURGICAL HISTORY OF 2015 [...] and reviewed by me Nursing Notes: Stacie Mancera LPN 01/01/2022 9:48 [...] her for urgent upper endoscopy tomorrow in [place]. Diagnoses: (D50.0) Anemia, blood loss (primary encounter [...] needed. Chai Encinas MD documented in this encounterParkview Health06-30-2022 Nurse Note* Stacie ManceraGOPI - 01/01/2022 9:46 AM EDT REVIEW OF [...] 2019 Stacie Mancera LPN documented in this encounterParkview Health06-27-2022 Miscellaneous Notes* Telephone Encounter - Doreen Le PA-C - 12/29/2021 4:19 PM EDT Thanks for the help! Doreen Le PA-C * Telephone Encounter - Sheree Savage Ma - 12/29/2021 3:57 PM EDT Patient is scheduled for for transfusion of 2 units packed red blood cells at [facility] for 8 am tomorrow. Patient has been notified and will stop by tonight to get type and cross. documented in this encounterParkview Health06-25-2022 Miscellaneous Notes* Telephone Encounter - Sheree [...] couple of days she will go to [facility] ED. Reason for Disposition [1] MILD weakness [...] since yesterday. Protocols used: WEAKNESS (GENERALIZED) AND [id number] documented in this encounterParkview Health06-25-2022 Miscellaneous Notes* Telephone Encounter - Radha Pyle RN - 12/27/2021 9:57 AM EDT Triage completed 12/27 for symptoms. See triage encounter. Radha Pyle RN documented in this encounterParkview Health06-23-2022 Miscellaneous Notes* Telephone Encounter - Marleen [...] EDT December 25, 2021 Patient Contact Number: [phone] (home) [phone] (cell) Patient last seen within the last year: Yes Reason for Call: Medication Issue/Question: Patient states that she is supposed to decrease medication in preparation of surgery in two weeks, but she is having symptoms and is having difficulty tolorating. Thank you, Marisol Page documented in this encounterParkview Health06-20-2022 Miscellaneous Notes* Telephone Encounter - Brittany [...] need schedules to follow. documented in this encounterParkview Health06-13-2022 History of Present illness Narrative* Marisol Cook RT(Annalisa) - 12/15/2021 11:00 AM EDT Radiology Service [...] DATA: Not applicable SIGNED BY: RT Mario(Annalisa) December 15, 2021 11:04 AM documented in this encounterParkview Health06-13-2022 History of Present illness Narrative* Doreen Le [...] bilateral inflow resting waveforms. 11/26/2021 f/u vascular CHEMICAL RESEARCH TECHNICIAN Na Ramirez 10/24/2018 US carotids: RIGHT: CCA plaques w/o significant hemodynamic stenosis, ICA 20-39%, VA patent w/antegrade. LEFT: CCA plaque w/o significant hemodynamic stenosis, ZEO37-83%%, VA patent w/antegrade, SA clear 12/02/2017 MRI/ [...] Pacemaker 10/21/[address] TRELL BARTLETT [id number] pulse generator, his bundle lead, right atrial lead Peripheral arterial disease (HCC) Rheumatic fever Steatosis, liver 03/26/2014 fatty liver on US. 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 Lua PACEMAKER 10/2019 PART. HYSTERECTOMY W/WO RMVL OVARIES/TUBES 1973 h/o cervical cancer ovaries remain PAST SURGICAL HISTORY OF 1996 Aortic valve repair, Dr. Apodaca PAST SURGICAL HISTORY OF 2001 [address] Beltrán, [facility] PAST SURGICAL HISTORY OF 2015 [...] ICD10: D12.4 18. PAD (peripheral artery disease) ([facility]) - ICD9: 443.9, ICD10: I73.9 19. Type 2 diabetes mellitus with diabetic peripheral angiopathy without gangrene, without long-term current use of insulin ([facility]) - ICD9: 250.70, 443.81, [...] LEFT Doreen Le PA-C documented in this encounterParkview Health06-02-2022 Miscellaneous Notes* Telephone Encounter - Marleen [...] EDT December 03, 2021 Patient Contact Number: [phone] (home) [phone] (cell) Patient last seen within the last [...] you, Deonna Bryant, Admin documented in this encounterParkview Health05-26-2022 History of Present illness Narrative* Dagmar Thomas - 11/27/2021 12:36 PM EDT set documented in this encounterParkview Health05-25-2022 History of Present illness Narrative* Na Ramirez APRN.KNIT GOODS MENDER - 11/26/2021 9:27 AM EDT VASCULAR SURGERY [...] Pacemaker 10/21/[address] TRELL BARTLETT [id number] pulse generator, his bundle lead, right atrial lead Peripheral arterial disease (HCC) Rheumatic fever Steatosis, liver 03/26/2014 fatty liver on US. 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 Lua PACEMAKER 10/2019 PART. HYSTERECTOMY W/WO RMVL OVARIES/TUBES 1974 h/o cervical cancer ovaries remain PAST SURGICAL HISTORY OF 1996 Aortic valve repair, Dr. Apodaca PAST SURGICAL HISTORY OF 2001 [address] Beltrán, [facility] PAST SURGICAL HISTORY OF 2015 [...] ambulation Time spent: 45 documented in this encounterParkview Health04-20-2022 Miscellaneous Notes* Telephone Encounter - Marycruz [...] encounter? yes Marycruz Olguin documented in this encounterParkview Health03-24-2022 Miscellaneous Notes* Telephone Encounter - Sigifredo [...] to cancel the procedure on 09/29 in [place]. She thought this was cancelled about a month ago when she received a call. She stated she is so sorry. documented in this encounterParkview Health03-22-2022 Miscellaneous Notes* Telephone Encounter - Inga [...] procedure. Patient stated understanding. documented in this encounterParkview Health08-14-2021 History of Past illness Narrative* Problem [...] get beds in local hospital, transferred to [facility]. 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 Patient had her eyes examined in [place] this year and was told that [...] of this encounter (statuses as of 09/23/2021) [facility] History of Past illness Narrative* Problem [...] get beds in local hospital, transferred to [facility]. Anemia 10/24/2019 09/12/2021 Last Assessment & [...] 12/22/2018 Prosthetic aortic valve stenosis 11/19/2016 12/22/2018 manager terminal current use of antiarrhythmic medical therapy 10/20/2016 [...] diarrhea. Patient had her eyes examined in [place] this year and was told that [...] of this encounter (statuses as of 09/26/2021) [facility] of Past illness Narrative* Problem [...] get beds in local hospital, transferred to [facility]. Anemia 10/24/2019 09/12/2021 Last Assessment & [...] 12/22/2018 Prosthetic aortic valve stenosis 11/19/2016 12/22/2018 manager terminal current use of antiarrhythmic medical therapy 10/20/2016 [...] diarrhea. Patient had her eyes examined in [place] this year and was told that [...] of this encounter (statuses as of 10/22/2021) [facility] History of Past illness Narrative* Problem [...] get beds in local hospital, transferred to [facility]. Anemia 10/24/2019 09/12/2021 Last Assessment & [...] 12/22/2018 Prosthetic aortic valve stenosis 11/19/2016 12/22/2018 manager terminal current use of antiarrhythmic medical therapy 10/20/2016 [...] diarrhea. Patient had her eyes examined in [place] this year and was told that [...] of this encounter (statuses as of 11/17/2021) [facility] of Past illness Narrative* Problem [...] get beds in local hospital, transferred to [facility]. 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 Patient had her eyes examined in [place] this year and was told that [...] of this encounter (statuses as of 11/27/2021) [facility] of Past illness Narrative* Problem [...] get beds in local hospital, transferred to [facility]. 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 Patient had her eyes examined in [place] this year and was told that [...] of this encounter (statuses as of 11/27/2021) [facility] of Past illness Narrative* Problem [...] get beds in local hospital, transferred to [facility]. Anemia 10/24/2019 09/12/2021 Last Assessment & [...] 09/12/2021 Other chest pain 03/27/2019 09/19/2020 Overview: 9/20/19 CTA chest/ thorax: 1. Small incompletely occluded [...] 12/22/2018 Prosthetic aortic valve stenosis 11/19/2016 12/22/2018 nursing home current use of antiarrhythmic medical therapy [...] diarrhea. Patient had her eyes examined in [place] this year and was told that [...] of this encounter (statuses as of 12/04/2021) [facility] of Past illness Narrative* Problem Noted Date Resolved Date Encounter for support and coordination of transi tion of care 02/15/2021 09/12/2021 Overview: 02/13/[address] Ferugson's office following gallbladder ultrasound demonstrating sludge. Admitted [...] get beds in local hospital, transferred to [facility]. Anemia 10/24/2019 09/12/2021 Last Assessment & [...] 12/22/2018 Prosthetic aortic valve stenosis 11/19/2016 12/22/2018 manager terminal current use of antiarrhythmic medical therapy 10/20/2016 [...] diarrhea. Patient had her eyes examined in [place] this year and was told that [...] of this encounter (statuses as of 12/04/2021) [facility] of Past illness Narrative* Problem [...] get beds in local hospital, transferred to [facility]. 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 Patient had her eyes examined in [place] this year and was told that [...] of this encounter (statuses as of 12/13/2021) [facility] of Past illness Narrative* Problem [...] get beds in local hospital, transferred to [facility]. Anemia 10/24/2019 09/12/2021 Last Assessment & [...] 12/22/2018 Prosthetic aortic valve stenosis 11/19/2016 12/22/2018 manager terminal current use of antiarrhythmic medical therapy 10/20/2016 [...] diarrhea. Patient had her eyes examined in [place] this year and was told that [...] of this encounter (statuses as of 12/15/2021) [facility] of Past illness Narrative* Problem [...] get beds in local hospital, transferred to [facility]. Anemia 10/24/2019 09/12/2021 Last Assessment & [...] 12/22/2018 Prosthetic aortic valve stenosis 11/19/2016 12/22/2018 manager terminal current use of antiarrhythmic medical therapy 10/20/2016 [...] diarrhea. Patient had her eyes examined in [place] this year and was told that [...] of this encounter (statuses as of 12/25/2021) [facility] of Past illness Narrative* Problem [...] get beds in local hospital, transferred to [facility]. 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 Patient had her eyes examined in [place] this year and was told that [...] of this encounter (statuses as of 12/27/2021) [facility] of [facility] illness Narrative* Problem [...] get beds in local hospital, transferred to [facility]. 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 Patient had her eyes examined in [place] this year and was told that [...] of this encounter (statuses as of 12/27/2021) [facility] of Past illness Narrative* Problem [...] get beds in local hospital, transferred to [facility]. 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 Patient had her eyes examined in [place] this year and was told that [...] of this encounter (statuses as of 12/29/2021) [facility] of Past illness Narrative* Problem [...] get beds in local hospital, transferred to [facility]. 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 Patient had her eyes examined in [place] this year and was told that [...] of this encounter (statuses as of 01/01/2022) [facility] of Past illness Narrative* Problem [...] get beds in local hospital, transferred to [facility]. 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 Patient had her eyes examined in [place] this year and was told that [...] of this encounter (statuses as of 01/03/2022) [facility] of Past illness Narrative* Problem [...] get beds in local hospital, transferred to [facility]. Anemia 10/24/2019 09/12/2021 Last Assessment & [...] 12/22/2018 Prosthetic aortic valve stenosis 11/19/2016 12/22/2018 manager terminal current use of antiarrhythmic medical therapy 10/20/2016 [...] diarrhea. Patient had her eyes examined in [place] this year and was told that [...] of this encounter (statuses as of 01/07/2022) [facility] Narrative* Problem [...] get beds in local hospital, transferred to [facility]. 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 Patient had her eyes examined in [place] this year and was told that [...] of this encounter (statuses as of 01/09/2022) [facility]08-14-2021 History of Past illness Narrative* Problem [...] get beds in local hospital, transferred to [facility]. 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 Patient had her eyes examined in [place] this year and was told that [...] of this encounter (statuses as of 01/09/2022) [facility]08-14-2021 History of Past illness Narrative* Problem [...] get beds in local hospital, transferred to [facility]. Anemia 10/24/2019 09/12/2021 Last Assessment & [...] 12/22/2018 Prosthetic aortic valve stenosis 11/19/2016 12/22/2018 manager terminal current use of antiarrhythmic medical therapy 10/20/2016 [...] diarrhea. Patient had her eyes examined in [place] this year and was told that [...] of this encounter (statuses as of 01/10/2022) [facility]08-14-2021 History of Past illness Narrative* Problem [...] get beds in local hospital, transferred to [facility]. Anemia 10/24/2019 09/12/2021 Last Assessment & [...] 12/22/2018 Prosthetic aortic valve stenosis 11/19/2016 12/22/2018 manager terminal current use of antiarrhythmic medical therapy 10/20/2016 [...] diarrhea. Patient had her eyes examined in [place] this year and was told that [...] of this encounter (statuses as of 01/15/2022) [facility]08-14-2021 History of Past illness Narrative* Problem [...] get beds in local hospital, transferred to [facility]. Anemia 10/24/2019 09/12/2021 Last Assessment & [...] 12/22/2018 Prosthetic aortic valve stenosis 11/19/2016 12/22/2018 manager terminal current use of antiarrhythmic medical therapy 10/20/2016 [...] diarrhea. Patient had her eyes examined in [place] this year and was told that [...] of this encounter (statuses as of 01/16/2022) [facility]08-14-2021 History of Past illness Narrative* Problem [...] get beds in local hospital, transferred to [facility]. 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 Patient had her eyes examined in [place] this year and was told that [...] of this encounter (statuses as of 01/20/2022) [facility]08-14-2021 History of Past illness Narrative* Problem [...] get beds in local hospital, transferred to [facility]. 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 Patient had her eyes examined in [place] this year and was told that [...] of this encounter (statuses as of 01/21/2022) [facility]08-14-2021 History of Past illness Narrative* Problem [...] get beds in local hospital, transferred to [facility]. 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 Patient had her eyes examined in [place] this year and was told that [...] of this encounter (statuses as of 01/23/2022) [facility]08-14-2021 History of Past illness Narrative* Problem [...] get beds in local hospital, transferred to [facility]. 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 Patient had her eyes examined in [place] this year and was told that [...] of this encounter (statuses as of 02/09/2022) [facility]08-14-2021 History of Past illness Narrative* Problem [...] get beds in local hospital, transferred to [facility]. Anemia 10/24/2019 09/12/2021 Last Assessment & [...] 12/22/2018 Prosthetic aortic valve stenosis 11/19/2016 12/22/2018 manager terminal current use of antiarrhythmic medical therapy 10/20/2016 [...] diarrhea. Patient had her eyes examined in [place] this year and was told that [...] of this encounter (statuses as of 02/20/2022) [facility]08-14-2021 History of Past illness Narrative* Problem [...] get beds in local hospital, transferred to [facility]. Anemia 10/24/2019 09/12/2021 Last Assessment & [...] 12/22/2018 Prosthetic aortic valve stenosis 11/19/2016 12/22/2018 manager terminal current use of antiarrhythmic medical therapy 10/20/2016 [...] diarrhea. Patient had her eyes examined in [place] this year and was told that [...] of this encounter (statuses as of 02/23/2022) [facility] Dianne Stovall [facility] Note Date/Time January 11, 2025 12:3 0pm [facility] Medical Records Department [address] [place] [address] Instructions for Home/Discharge Instructions 01/11/25 1226 MR#: [id number] Acct: [id number] Name: VERÓNICABERTA JO Rep #:[id number] : [id number] From: [...] Hernandez MD [Non-Staff] - Deysi Collazo NP, CHEMICAL RESEARCH TECHNICIAN-C [Primary Care Provider] - Disposition Disposition (needs filled in before D/C Order can be placed): Home, Self Care 01/11/25 1230<Electronically signed by Dianne Stovall DO>Dianne Stovall DO CC: TALI-Ivett Collazo; Dr. Jeremy Mcgarry MD; Dr. Radha Heller MD ~ Signed [facility] Work Phone: Evaluation note* Diagnosis PAD (peripheral artery disease) (HCC)- Primary Peripheral vascular disease, unspecified Anemia due to chronic illness Anemia of other chronic disease Atrial fibrillation, unspecified type (HCC) [facility] Diagnosis PAD (peripheral artery disease) (HCC)- Primary Peripheral vascular disease, unspecified PVD (peripheral vascular disease) (HCC) Peripheral vascular disease, unspecified Atrial fibrillation, unspecified type (HCC) [facility]* Diagnosis Renal mass, right- Primary [...] unspecified type (HCC) [facility]* Diagnosis Anemia, unspecified type- Primary Atrial fibrillation, unspecified type (HCC) [facility]* Diagnosis Anemia, blood loss- Primary Iron [...] unspecified type (HCC) [facility]* Diagnosis Acute blood loss anemia Acute posthemorrhagic anemia Heme + stool Nonspecific abnormal finding in stool contents Epigastric pain Abdominal pain, epigastric Atrial fibrillation, unspecified type (HCC) documented in this encounter [facility] noteNo assessment information [facility]WC[facility] Work Phone: Evaluation note* Diagnosis Heme positive stool- Primary Nonspecific abnormal finding in stool contents Blood loss anemia Iron deficiency anemia secondary to blood loss (chronic) Atrial fibrillation, unspecified type (HCC) documented in this encounter [facility] note* Diagnosis Atrial fibrillation, unspecified type (HCC)- Primary Gastrointestinal hemorrhage, unspecified gastrointestinal hemorrhage type Anemia due to chronic blood loss Iron deficiency anemia secondary to blood loss (chronic) Other fatigue SOB (shortness of breath) Shortness of breath documented in this encounter [facility] note* Diagnosis Atrial fibrillation, unspecified type (HCC)- Primary Presence of Watchman left atrial appendage closure device Herpes zoster without complication Herpes zoster without mention of complication documented in this encounter [facility] note* Diagnosis Paroxysmal atrial fibrillation (HCC)- Primary Atrial fibrillation documented in this encounter [facility] note* Diagnosis Paroxysmal atrial fibrillation (HCC)- Primary Atrial fibrillation Presence of Watchman left atrial appendage closure device documented in this encounter [facility] note* Diagnosis Rectal bleeding- Primary Hemorrhage of rectum and anus Anemia, blood loss Iron deficiency anemia secondary to blood loss (chronic) Diarrhea, unspecified type documented in this encounter [facility] note* Diagnosis Longstanding persistent atrial fibrillation (HCC)- Primary Presence of Watchman left atrial appendage closure device documented in this encounter [facility] note* Diagnosis Acute combined systolic and [...] Unspecified essential hypertension documented in this encounter [facility] note* Diagnosis History of prosthetic aortic valve [...] of cerebral infarction [facility] Right renal mass Unspecified disorder of kidney and ureter [facility] Diagnosis Paroxysmal atrial fibrillation (HCC) Atrial fibrillation Presence of Watchman left atrial appendage closure device [facility] Diagnosis Hospital discharge follow-up- Primary [...] blood loss (chronic) [facility]* Diagnosis 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 Other specified intestinal malabsorption [facility] Diagnosis 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 Neoplasm of uncertain behavior of kidney and ureter Iron 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) Stage 3b chronic kidney disease (HCC) [facility] Diagnosis Iron deficiency anemia secondary [...] Unspecified essential hypertension [facility] Diagnosis Iron 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- Primary Iron malabsorption Other specified intestinal malabsorption [facility] Diagnosis Iron 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- Primary Chronic renal failure, stage 3b (HCC) [facility]* Diagnosis Primary hypertension Unspecified essential hypertension [facility]* Diagnosis H/O rheumatic heart disease- [...] vascular disease, unspecified [facility]* Diagnosis Lung nodule, solitary- Primary Solitary pulmonary nodule [facility]* Diagnosis Heme + stool Nonspecific abnormal finding in stool contents Epigastric pain Abdominal pain, epigastric Blood loss anemia Iron deficiency anemia secondary to blood loss (chronic) [facility]* Diagnosis History of prosthetic aortic [...] and unspecified hyperlipidemia [facility]* Diagnosis Primary hypertension Unspecified essential hypertension [facility]* Diagnosis S/P placement of cardiac pacemaker- Primary Cardiac pacemaker in situ SSS (sick sinus syndrome) ([facility]) Sinoatrial node dysfunction Chronic combined [...] pulmonary nodule Chronic renal failure, stage 3b ([facility]) Gastroesophageal reflux disease without esophagitis [...] of insulin (HCC) [facility]* Diagnosis Bilateral carotid artery stenosis- Primary Occlusion and stenosis of carotid artery without mention of cerebral infarction Atherosclerosis of [place] artery of both lower extremities with intermittent claudication (HCC) Atherosclerosis of [place] arteries of the extremities with intermittent claudication [...] Diagnosis PVD (peripheral vascular disease) with claudication ([facility])- Primary Peripheral vascular disease, unspecified [...] systolic and diastolic CHF (congestive heart failure) ([facility])- Primary Chronic combined systolic and diastolic heart failure Dilated cardiomyopathy (HCC) Other primary cardiomyopathies [facility]* Diagnosis SSS (sick sinus syndrome) ([facility])- Primary Sinoatrial node dysfunction Paroxysmal atrial fibrillation [...] vitamin D deficiency [facility]* Diagnosis Borderline anemia- Primary Acute systolic congestive heart failure (HCC) Acute systolic heart failure [facility]* Diagnosis Acute systolic CHF (congestive heart failure) ([facility])- Primary Acute systolic heart failure Rheumatic tricuspid valve regurgitation Diseases of tricuspid valve Diuresis excessive Polyuria Chronic combined systolic and diastolic CHF (congestive heart failure) ([facility]) Chronic combined systolic and diastolic heart failure Dilated cardiomyopathy (HCC) Other primary cardiomyopathies Longstanding persistent atrial fibrillation ([facility]) SSS (sick sinus syndrome) ([facility]) Sinoatrial node dysfunction S/P placement of cardiac pacemaker Cardiac pacemaker in situ Acute hip pain, right Piriformis syndrome, right Bilateral knee effusions Effusion of lower leg joint Primary osteoarthritis of both knees Primary localized osteoarthrosis, lower leg [facility]* Diagnosis Acute HFrEF (heart failure with reduced ejection fraction) ([facility])- Primary VHD (valvular heart disease) Endocarditis, valve unspecified, unspecified cause Nonrheumatic tricuspid valve regurgitation Tricuspid valve disorders, specified as nonrheumatic Nonrheumatic mitral valve regurgitation Persistent atrial fibrillation (HCC) Atrial fibrillation Pacemaker Cardiac pacemaker in situ [facility]* Diagnosis Venous insufficiency- Primary Unspecified venous (peripheral) insufficiency [facility]* Diagnosis Venous insufficiency- Primary Unspecified venous (peripheral) insufficiency [facility]* Diagnosis Iron 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- Primary Iron malabsorption Other specified intestinal malabsorption [facility]* Diagnosis Acute systolic CHF (congestive heart failure) ([facility])- Primary Acute systolic heart failure Hyponatremia Hyposmolality and/or hyponatremia Hypokalemia Hypopotassemia documented [facility]* Diagnosis Chronic diastolic congestive heart failure (HCC)- Primary Chronic diastolic heart failure Primary hypertension Unspecified essential hypertension SSS (sick sinus syndrome) (HCC) Sinoatrial node dysfunction Longstanding persistent atrial fibrillation (HCC) Acute systolic CHF (congestive heart failure) (HCC) Acute systolic heart failure [facility]* Diagnosis URI, acute- Primary Acute upper respiratory infections of unspecified site [facility]* Diagnosis History of prosthetic aortic valve replacement- Primary Heart valve replaced by other means H/O rheumatic heart disease Personal history of other diseases of circulatory system Longstanding persistent atrial fibrillation (HCC) Ascending aorta dilatation (HCC) Thoracic aortic ectasia Dilated cardiomyopathy (HCC) Other primary cardiomyopathies Aortic prosthetic valve regurgitation, subsequent encounter Chronic diastolic (congestive) heart failure (HCC) SSS (sick sinus syndrome) ([facility]) Sinoatrial node dysfunction Primary hypertension Unspecified essential hypertension Hyperlipidemia with target LDL less than 70 Other and unspecified hyperlipidemia S/P placement of cardiac pacemaker Cardiac pacemaker in situ PAD (peripheral artery disease) ([facility]) Peripheral vascular disease, unspecified Acute systolic CHF (congestive heart failure) ([facility]) Acute systolic heart failure [facility]* Diagnosis Chronic diastolic congestive heart failure (HCC)- Primary Chronic diastolic heart failure [facility]* Diagnosis Chronic kidney disease, unspecified CKD stage- Primary [facility]* Diagnosis SOB (shortness of breath)- [...] Coronary atherosclerosis of unspecified type of vessel, [place] or graft SUMMARY Hyperlipidemia LDL goal < [...] systolic heart failure [facility]* Diagnosis SOB (shortness of breath)- [...] Coronary atherosclerosis of unspecified type of vessel, [place] or graft SUMMARY Hyperlipidemia LDL goal < [...] healing, subsequent encounter [facility]* Diagnosis SOB (shortness of breath)- [...] Coronary atherosclerosis of unspecified type of vessel, [place] or graft SUMMARY Hyperlipidemia LDL goal < [...] right middle finger [facility]* Diagnosis SOB (shortness of breath)- [...] Coronary atherosclerosis of unspecified type of vessel, [place] or graft SUMMARY Hyperlipidemia LDL goal < [...] of left side [facility]* Diagnosis SOB (shortness of breath)- [...] examination at a health care facility Diabetes ([facility]) Type II or unspecified type diabetes mellitus without mention of complication, not stated as uncontrolled HTN (hypertension) Unspecified essential hypertension Basal cell carcinoma Basal cell carcinoma of skin, site unspecified CAD (coronary artery disease) Coronary atherosclerosis of unspecified type of vessel, [place] or graft SUMMARY Hyperlipidemia LDL goal < [...] of cerebral infarction PAD (peripheral artery disease) ([facility]) Peripheral vascular disease, unspecified Type [...] Unspecified essential hypertension SSS (sick sinus syndrome) ([facility]) Sinoatrial node dysfunction Longstanding persistent atrial fibrillation ([facility]) documented in this encounter [facility] note* Diagnosis SOB (shortness of breath)- [...] Coronary atherosclerosis of unspecified type of vessel, [place] or graft SUMMARY Hyperlipidemia LDL goal < [...] Other follow-up examination [facility]* Diagnosis SOB (shortness of breath)- [...] Coronary atherosclerosis of unspecified type of vessel, [place] or graft SUMMARY Hyperlipidemia LDL goal < [...] fistula Pedro aneurysm of anterior communicating artery ([facility]) Subarachnoid hemorrhage Bilateral carotid artery stenosis Occlusion and stenosis of carotid artery without mention of cerebral infarction PAD (peripheral artery disease) Peripheral vascular disease, unspecified Type 2 diabetes mellitus without complication, without long-term current use of insulin ([facility]) Gastroesophageal reflux disease without esophagitis Esophageal reflux Other persistent atrial fibrillation ([facility]) Ascending aorta dilatation Thoracic aortic ectasia Stage 3 chronic renal impairment associated with type 2 diabetes mellitus ([facility]) Type II or unspecified type diabetes mellitus with renal manifestations, not stated as uncontrolled Chronic anticoagulation Long-term (current) use of anticoagulants History of prosthetic aortic valve replacement Heart valve replaced by other means Essential hypertension Unspecified essential hypertension Renal mass, right Unspecified disorder of kidney and ureter Acute pulmonary embolism, unspecified pulmonary embolism type, unspecified whether acute cor pulmonale present ([facility]) Gastrointestinal hemorrhage, unspecified gastrointestinal hemorrhage type Iron deficiency anemia, unspecified iron deficiency anemia type Paroxysmal atrial fibrillation ([facility]) Atrial fibrillation Stage 3 chronic renal impairment associated with type 2 diabetes mellitus ([facility]) Type II or unspecified type diabetes mellitus with renal manifestations, not stated as uncontrolled Chronic diastolic congestive heart failure ([facility])- Primary Chronic diastolic heart failure Primary hypertension Unspecified essential hypertension SSS (sick sinus syndrome) (HCC) Sinoatrial node dysfunction Longstanding persistent atrial fibrillation (HCC) Stage 3b chronic kidney disease (HCC) documented [facility]* Diagnosis SOB (shortness of breath)- [...] Coronary atherosclerosis of unspecified type of vessel, [place]hal[place] or graft SUMMARY Hyperlipidemia LDL goal < [...] of cerebral infarction [facility]* Diagnosis SOB (shortness of breath)- [...] Coronary atherosclerosis of unspecified type of vessel, [place] or graft SUMMARY Hyperlipidemia LDL goal < [...] diastolic heart failure [facility]* Diagnosis SOB (shortness of breath)- [...] Coronary atherosclerosis of unspecified type of vessel, [place] or graft SUMMARY Hyperlipidemia LDL goal < [...] insufficiency of intestine [facility]* Diagnosis SOB (shortness of breath)- [...] Coronary atherosclerosis of unspecified type of vessel, [place] or graft SUMMARY Hyperlipidemia LDL goal < [...] atrial fibrillation (HCC) [facility]* Diagnosis SOB (shortness of breath)- [...] Coronary atherosclerosis of unspecified type of vessel, [place] or graft SUMMARY Hyperlipidemia LDL goal < [...] insufficiency of intestine [facility] Diagnosis SOB (shortness of breath)- Primary [...] Coronary atherosclerosis of unspecified type of vessel, [place] or graft SUMMARY Hyperlipidemia LDL goal < [...] and unspecified hyperlipidemia [facility]* Diagnosis Onset Date Resolution Status Admit Date CHF exacerbation acute January 4:29pm [facility] Work Phone: History and physical note Author Radha Heller [facility] Note Date/Time January 07, 2025 4:35p m [facility] Medical Records Department [address] [place] [id number] H&P Exam - Hospitalist 01/07/25 1629 MR#: [id number] Acct: [id number] Name: BERTA SANCHES SCOTTIE Rep #:[id number] [...] post Watchman device, congestive heart failure presented [facility] ED 01/07/2025 with several weeks of shortness of breath and bilateral lower extremity edema. Reportedly in September 2023 she had surgery in [place] for some kind of intra-abdominal artery blockageand was placed on Plavix and aspirin and was having difficulties with her heart failure at that time. She came home at the end of October and has been taking herLasix 40 twice daily and spironolactone 12.5 mg twice daily without improvement. She recently followed with her [facility] endodontic assistant with increase in her Lasix by mouth [...] bowel or bladder changes. ROS otherwise negative [facility] Medical History Anxiety Brain aneurysm [...] % (Auto) 59.8, Lymph % (Auto) 24.2, Harvey % (Auto) 12.9 H, Eos % (Auto) [...] Sens 71 H*, [place] [address] H 01/07/25 14:54: Troponin T Hi Sens 2 Hr 68 H* Imaging Radiology Impression Chest X-Ray 01/07/25 13:19 IMPRESSION: Findings consistent with mild congestive heart failure. Reading Location: [facility] Assessment & Plan Assessment/Plan (1) CHF exacerbation: [...] Heller MD Charges/Coding Visit Charges Inpatient E&M: 44209 Init Hosp L2 01/07/25 1635 <Electronically signed by Radha Heller MD> Cosigner Signature (if applicable): CC: JARROD Collazo; Dr. Radha Heller MD~ Signed [facility] Work Phone: Hospital Discharge instructionsAdditional Instructions Date of Discharge: 01/11/25[facility] Work Phone: Hospital Discharge instructionsAdditional Instructions Follow-up with your doctor next week. Continue to use your bumetanide and your metolazone for your fluid retention. Follow-up with Dr. Flores early next week to ensure you are improving. Return to the emergency department if you are feeling worse.[facility] Work Phone: Hospital Discharge instructionsAdditional Instructions Please [...] the ER should you have any further [facility] Work Phone: Progress note Author Ric Noriega [facility] Note Date/Time April 24, 2025 4 :45pm [facility] Cancer [address] [address] OFFICE VISIT Date of Service: 04/24/25 1525 MR#: [id number] Acct: [id number] Name: BERTA SANCHES SCOTTIE Rep #: [id number] : 1945 From: Ric champion MD Age/Sex: 79/F Location: [facility] Status: Signed HPI Subjective Date of [...] right leg. In 2024 and while in [place] she was hospitalized underwent a colonoscopy to herknowledge did not show any bleeding lesions, she is unaware whether she had an EGD or not during that hospital stay but she was placed on PPI therapy since. 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 Ric Noriega MD Oncology Rep Specialist, [facility] Divisions of Medical Oncology & Hematology Department of Internal Medicine [place] [phone] This note was generated using a voice [...] fallen in the past year?: No 04/24/25 9046 <Electronically signed by Ric smith MD> Date _ Ric Noriega MD Cosigner Signature: Date (if applicable) CC: Dr. Vincent Flores MD ~ [facility] Work Phone: Reason for referral (narrative)* Diagnostic Procedure Only (Routine) - Closed Specialty Diagnoses / Procedures Referred By Leilani t Referred To Contact XR IMAGING Diagnoses Ischial bursitis of left side Procedures XR HIP GENERAL 3V PELV/AP/LAT LEFT RADEX HIP UNILATERAL WITH PELVIS 2-3 VIEWS Doreen Le PA-C [address] [place] [address] Xr Imaging Referral ID Status Reason Start Date Expiration Date V isits Requested Visits Authorized [id number] Closed Auto-Generate d Referral 12/15/2021 01/14/2023 1 1 [facility] for referral (narrative)* Outpatient Procedure (Routine) - Pending Review Specialty Diagnoses / Procedures Referred By Leilani ng Referred To Contact [facility] Diagnoses Acute blood loss anemia Heme + stool Epigastric pain Procedures EGD DIAGNOSTIC ESOPHAGOGASTRODUODENOSC OPY TRANSORAL DIAGNOSTIC REFERRAL TO [facility] FINANCIAL COUNSELOR Chai Encinas MD [address] [place] [address] [address] Referral ID Status Reason Start Date Expiration Date Visits Requested Visits Authorized [id number] Pending Review Auto-Generated Referral 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 OON Notification Letter Patient Cleared - Admin/Cranberry Bog Supervisor/D irector advise to proceed 04/01/2022 1 1 [facility] for referral (narrative)* Outpatient Procedure (Routine) - Closed Specialty Diagnoses / Procedures Referred By Leilani ng Referred To Contact Diagnoses Acute blood loss anemia Heme + stool Epigastric pain Procedures EGD DIAGNOSTIC ESOPHAGOGASTRODUODENOSCOPY TRANSORAL DIAGNOSTIC REFERRAL TO [facility] FINANCIAL COUNSELOR Chai Encinas MD [address] [place] [address] [address] Referral ID Status Reason Start Date Expiration Date Visits Requested Visits Authorized [id number] Closed Auto-Generated Referral 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 OON Notification Letter Patient Cleared - Admin/Cranberry Bog Supervisor/D irector advise to proceed 01/01/2022 07/04/2022 1 1 [facility] for referral (narrative)* Outpatient Procedure (Routine) - Pending Review Specialty Diagnoses / Procedures Referred By Leilani ng Referred [facility] Diagnoses Paroxysmal atrial fibrillation (HCC) Procedures ECHO TRANSESOPHAGEAL ECHO TRANSESOPHAG R-T 2D W/PRB IMG ACQUISGlenna I&R Candi Beauchamp APRN.KNIT GOODS MENDER [address] [place] [address] [facility] [address] [place] [address] Referral ID Status Reason Start Date Expiration Date Visits Requested Visits Authorized [id number] Pending Review Auto-Generat ed Referral 01/21/2022 01/21/2023 1 1 * Outpatient Procedure (Routine) - Pending Review Specialty Diagnoses / Procedures Referred By Contac t Referred To Contact [facility] Diagnoses Paroxysmal atrial fibrillation (HCC) Procedures ECG COMPLETE ECG ROUTINE ECG W/LEAST 12 LDS W/I&R Candi Beauchamp APRN.KNIT GOODS MENDER [address] [facility] [place] [address] [facility] [address] [place] [address] Referral ID Status Reason Start Date Expiration Date Visits Requested Visits Authorized [id number] Pending Review Auto-Generat ed Referral 01/21/2022 01/21/2023 1 1 * Outpatient Procedure (Routine) - Pending Review Specialty Diagnoses / Procedures Referred By Contac t Referred To Contact [facility] Diagnoses Paroxysmal atrial fibrillation (HCC) Procedures ECHO TRANSESOPHAGEAL ECHO TRANSESOPHAG R-T 2D W/PRB IMG ACQUNYDIA I&R Candi Beauchamp APRN.KNIT GOODS MENDER [address] [place] [address] [facility] [address] [place] [address] Referral ID Status Reason Start Date Expiration Date Visits Requested Visits Authorized [id number] Pending Review Auto-Generat ed Referral 01/21/2022 01/21/2023 1 1 [facility] for referral (narrative)* Outpatient Procedure (Routine) - Pending Review Specialty Diagnoses / Procedures Referred By Contac t Referred To Contact [facility] Diagnoses Paroxysmal atrial fibrillation (HCC) Presence of Watchman left atrial appendage closure device Procedures ECHO TRANSESOPHAGEAL ECHO TRANSESOPHAG R-T 2D W/PRB IMG ACQUNYDIA I&R Candi Beauchamp APRN.CNP [address] [place] [address] [facility] [address] [place] [id number] Referral ID Status Reason Start Date Expiration Date Visits Requested Visits Authorized [id number] Pending Review Auto-Generat ed Referral 02/09/2022 02/09/2023 1 1 * Outpatient Procedure (Routine) - Pending Review Specialty Diagnoses / Procedures Referred By Contac t Referred To Contact [facility] Diagnoses Paroxysmal atrial fibrillation (HCC) Presence of Watchman left atrial appendage closure device Procedures ECG COMPLETE ECG ROUTINE ECG W/LEAST 12 LDS W/I&R Candi Beauchamp APRN.CNP [address] [place] [address] [facility] [address] [place] [address] Referral ID Status Reason Start Date Expiration Date Visits Requested Visits Authorized [id number] Pending Review Auto-Generat ed Referral 02/09/2022 02/09/2023 1 1 * Outpatient Procedure (Routine) - Pending Review Specialty Diagnoses / Procedures Referred By Contac t Referred To Contact [facility] Diagnoses Paroxysmal atrial fibrillation (HCC) Presence of Watchman left atrial appendage closure device Procedures ECHO TRANSESOPHAGEAL ECHO TRANSESOPHAG R-T 2D W/PRB IMG ACQUNYDIA I&R Candi Beauchamp APRN.KNIT GOODS MENDER [address] [place] [address] [place] [address] [place] [address] Referral ID Status Reason Start Date Expiration Date Visits Requested Visits Authorized [id number] Pending Review Auto-Generat ed Referral 02/09/2022 02/09/2023 1 1 [facility] for referral (narrative)* Outpatient Procedure (Routine) - Pending Review Specialty Diagnoses / Procedures Referred By Contac t Referred To Contact [facility] Diagnoses Longstanding persistent atrial fibrillation (HCC) Presence of Watchman left atrial appendage closure device Procedures ECHO TRANSESOPHAGEAL ECHO TRANSESOPHAG R-T 2D W/PRB IMG LINUS I&R Radha Torres APRN.CNP [address] [place] [address] [address] Referral ID Status Reason Start Date Expiration Date Visits Requested Visits Authorized [id number] Pending Review Auto-Generat ed Referral 03/04/2022 03/04/2023 1 1 [facility] for referral (narrative)* Outpatient Procedure (Routine) - Authorized Specialty Diagnoses / Procedures Referred By Contac t Referred To Contact [facility] Diagnoses Aortic prosthetic valve regurgitation, 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) Procedures ECG COMPLETE ECG ROUTINE ECG W/LEAST 12 LDS W/I&R Doreen Le PA-C [address] [place] [address] [address] Referral ID Status Reason Start Date Expiration Date Visits Requested Visits Authorized [id number] Authorized Auto-Generat ed Referral 03/19/2022 03/19/2023 1 1 T [facility] for referral (narrative)* Diagnostic Procedure Only (Routine) - Authorized Specialty Diagnoses / Procedures [facility] Referred To Contact US IMAGING Diagnoses Neoplasm of uncertain behavior of right kidney Procedures US KIDNEY/BLADDER US RETROPERITONEAL REAL TIME W/IMAGE COMPLETE Brayan Chicas MD [address] [place] [address] Us Imaging Referral ID Status Reason Start Date Expiration Date Visits Requested Visits Authorized [id number] Authorized Auto-Generat ed Referral 09/02/2022 05/09/2023 1 1 [facility] for referral (narrative)* Outpatient Procedure (Routine) - Authorized Specialty Diagnoses / Procedures [facility] Referred To Contact [facility] Diagnoses History of prosthetic aortic valve replacement H/O rheumatic heart disease Procedures ECHO ECHO TTHRC R-T 2D W/WOM-MODE COMPL SPEC&COLR D Carla Burdick MD [address] [place] [address] [facility] [address] [address] Referral ID Status Reason Start Date Expiration Date Visits Requested Visits Authorized [id number] Authorized Auto-Generat ed Referral 03/05/2023 09/28/2023 1 1 [facility] for referral (narrative)* Outpatient Procedure (Routine) - Pending Review Specialty Diagnoses / Procedures [facility] Referred To Contact [facility] Diagnoses 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HCC) Pain in both lower legs Atherosclerosis of [place] artery of both lower extremities with intermittent claudication (HCC) Procedures PVR LEG [facility] NON-INVASIVE PHYSIOLOGIC STUDY EXTREMITY 3 Doreen Borges PA-C [address] [place] [address] [facility] [place] [address] [place] [address] Referral ID Status Reason Start Date Expiration Date Visits Requested Visits Authorized [id number] Pending Review Auto-Generat ed Referral 01/07/2023 01/07/2024 1 1 * Outpatient Procedure (Routine) - Pending Review Specialty Diagnoses / Procedures Referred By Leilani ng Referred To Contact [facility] Diagnoses 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HCC) Pain in both lower legs Atherosclerosis of [place] artery of both lower extremities with intermittent claudication (HCC) Procedures PVR ANK PRESS [facility] NON-INVAS PHYSIOLOGIC STD EXTREMITY ART 2 LEVEL Doreen Le PA-C [address] [place] [address] [place] [address] [place] [address] Referral ID Status Reason Start Date Expiration Date Visits Requested Visits Authorized [id number] Pending Review Auto-Generat ed Referral 01/07/2023 01/07/2024 1 1 * Outpatient Procedure (Routine) - Authorized Specialty Diagnoses / Procedures Referred By Leilani ng Referred To Contact [facility] Diagnoses Bilateral carotid artery stenosis Procedures US CAROTID ARTERIES [facility] DUPLEX SCAN EXTRACRANIAL ART COMPL BI STUDY Doreen Le PA-C [address] [place] [address] [place] [address] [place] [address] Referral ID Status Reason Start Date Expiration Date Visits Requested Visits Authorized [id number] Authorized Auto-Generat ed Referral 01/07/2023 01/07/2024 1 1 [facility] for referral (narrative)* Diagnostic Procedure Only (Routine) - Closed Specialty Diagnoses / Procedures Referred By Leilani ng Referred To Contact US IMAGING Diagnoses Neoplasm of uncertain behavior of right kidney Procedures US KIDNEY/BLADDER US RETROPERITONEAL REAL TIME W/IMAGE COMPLETE Brayan Chicas MD [address] [place] [address] Us Imaging [facility] Referral ID Status Reason Start Date Expiration Date V isits Requested Visits Authorized [id number] Closed Auto-Generate d Referral 09/02/2022 05/09/2023 1 1 [facility] for referral (narrative)* Outpatient Procedure (Routine) - Authorized Specialty Diagnoses / Procedures Referred By Contac t Referred To Contact [facility] Diagnoses Acute systolic CHF (congestive heart failure) (HCC) Procedures ECHO ECHO TTHRC R-T 2D W/WOM-MODE COMPL SPEC&COLR D Doreen Le PA-C [address] [place] [address] [place] [address] [place] [address] Referral ID Status Reason Start Date Expiration Date Visits Requested Visits Authorized [id number] Authorized Auto-Generat ed Referral 10/18/2023 10/17/2024 1 1 * Outpatient Procedure (Routine) - Pending Review Specialty Diagnoses / Procedures Referred By Contac t Referred To Contact [facility] Diagnoses Acute systolic CHF (congestive heart failure) (HCC) Procedures ECG COMPLETE ECG ROUTINE ECG W/LEAST 12 LDS W/I&R Doreen Le PA-C [address] [place] [address] [address] Referral ID Status Reason Start Date Expiration Date Visits Requested Visits Authorized [id number] Pending Review Auto-Generat ed Referral 10/18/2023 10/17/2024 1 1 [facility] for referral (narrative)* Outpatient Procedure (Routine) - Closed Specialty Diagnoses / Procedures Referred By Contac t Referred To Contact [facility] Diagnoses Venous insufficiency Procedures US LEG VEIN DVT [facility] DUP-SCAN XTR VEINS COMPLETE BILATERAL STUDY Lars Silva DO [address] [place] [address] [place] [address] [place] [address] Referral ID Status Reason Start Date Expiration Date V isits Requested Visits Authorized [id number] Closed Auto-Generate d Referral 10/14/2023 10/13/2024 1 1 [facility] for referral (narrative)* Diagnostic Procedure Only (Routine) - Closed Specialty Diagnoses / Procedures Referred By Contac t Referred To Contact XR IMAGING Diagnoses Closed nondisplaced fracture of fifth metatarsal bone of right foot with routine healing, subsequent encounter Procedures XR FOOT GENERAL 3V AP/LAT/OBL RIGHT RADEX FOOT COMPLETE MINIMUM 3 VIEWS Doreen Le PA-C [address] [place] [address] [place] [address] Referral ID Status Reason Start Date Expiration Date V isits Requested Visits Authorized [id number] Closed Auto-Generate d Referral 06/01/2023 06/30/2024 1 1 [facility] for referral (narrative)* Diagnostic Procedure Only (Routine) - Closed Specialty Diagnoses / Procedures Referred By Contac t Referred To Contact XR IMAGING Diagnoses Pain of right middle finger Procedures XR DIGIT GENERAL 3V FRONTAL/LAT/OBL RIGHT RADEX FINGR MINIMUM 2 VIEWS Doreen Le PA-C [address] [place] [address] [place] [address] Referral ID Status Reason Start Date Expiration Date V isits Requested Visits Authorized [id number] Closed Auto-Generate d Referral 04/12/2023 05/11/2024 1 1 [facility] for referral (narrative)* Diagnostic Procedure Only (Routine) - Closed Specialty Diagnoses / Procedures Referred By Contac t Referred To Contact XR IMAGING Diagnoses Ischial bursitis of left side Procedures XR HIP GENERAL 3V PELV/AP/LAT LEFT RADEX HIP UNILATERAL WITH PELVIS 2-3 VIEWS Doreen Le PA-C [address] [place] [address] [facility] [address] Referral ID Status Reason Start Date Expiration Date V isits Requested Visits Authorized [id number] Closed Auto-Generate d Referral 12/15/2021 01/14/2023 1 1 [facility] for referral (narrative)No reason for referral information availableWCoshoct[facility] Work Phone: [facility] for [facility] Narrative* Outpatient Procedure (Routine) - Closed Specialty Diagnoses / Procedures Referred By Contac t Referred To Contact Diagnoses Acute blood loss anemia Heme + stool Epigastric pain Procedures EGD DIAGNOSTIC ESOPHAGOGASTRODUODENOSCOPY TRANSORAL DIAGNOSTIC REFERRAL TO [facility] FINANCIAL COUNSELOR Chai Encinas MD [address] [place] [address] [facility] [place] [address] [place], [place] [id number] Referral ID Status Reason Start Date Expiration Date Visits Requested Visits Authorized [id number] Closed Auto-Generated Referral 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 OON Notification Letter Patient Cleared - Admin/Cranberry Bog Supervisor/D irector advise to proceed 01/01/2022 07/04/2022 1 1 [facility] for visit Narrative* Diagnostic Procedure Only (Routine) - Closed Specialty Diagnoses / Procedures Referred By Contac t Referred To Contact Laboratory Medicine / LAB COVID TESTING LL Lot Diagnoses Paroxysmal atrial fibrillation PRE-PROCEDURE & PRE-OPERATIVE COVID Paroxysmal atrial fibrillation (HCC) [I48.0] Procedures COVID19 LAB COVID Chandler Swan MD [address] [place] [address] [place] [address] [place] [address] Referral ID Status Reason Start Date Expiration Date Visits Re quested Visits Authorized [id number] Closed 01/09/2022 07/04/2022 1 1 [facility] for visit Narrative* Diagnostic Procedure Only (Routine) - Closed Specialty Diagnoses / Procedures Referred By Contac t Ref[facility] Diagnoses Paroxysmal atrial fibrillation (HCC) Presence of Watchman left atrial appendage closure device Procedures ECHO TRANSESOPHAGEAL ECHO TRANSESOPHAG R-T 2D W/PRB IMG LINUS I&R Candi Beauchamp, CLARITY DEVELOPER.KNIT GOODS MENDER [address], [address] [place] [address] [facility] [place] [address] [place] [id number] Referral ID Status Reason Start Date Expiration Date V isits Requested Visits Authorized [id number] Closed Auto-Generate d Referral 02/09/2022 07/04/2022 1 1 [facility] for visit Narrative* Diagnostic Procedure Only (Routine) - Closed Specialty Diagnoses / Procedures Referred By Contac t Referred To Contact XR IMAGING Diagnoses Closed nondisplaced fracture of fifth metatarsal bone of right foot with routine healing, subsequent encounter Procedures XR FOOT GENERAL 3V AP/LAT/OBL RIGHT RADEX FOOT COMPLETE MINIMUM 3 VIEWS Doreen Le PA-C [address] [place] [address] Xr Imaging [facility]95 Referral ID Status Reason Start Date Expiration Date V isits Requested Visits Authorized [id number] Closed Auto-Generate d Referral 06/01/2023 06/30/2024 1 1 [facility] for visit Narrative* Diagnostic Procedure Only (Routine) - Closed Specialty Diagnoses / Procedures Referred By Contac t Referred To Contact XR IMAGING Diagnoses Pain of right middle finger Procedures XR DIGIT GENERAL 3V FRONTAL/LAT/OBL RIGHT RADEX FINGR MINIMUM 2 VIEWS Doreen Le PA-C [address] [place] [address] Xr Imaging [facility]95 Referral ID Status Reason Start Date Expiration Date V isits Requested Visits Authorized [id number] Closed Auto-Generate d Referral 04/12/2023 05/11/2024 1 1 [facility] for visit Narrative* Diagnostic Procedure Only (Routine) - Closed Specialty Diagnoses / Procedures Referred By Contac t Referred To Contact XR IMAGING Diagnoses Ischial bursitis of left side Procedures XR HIP GENERAL 3V PELV/AP/LAT LEFT RADEX HIP UNILATERAL WITH PELVIS 2-3 VIEWS Doreen Le PA-C [address] [place] [id number] [place] [id number] Referral ID Status Reason Start Date Expiration Date V isits Requested Visits Authorized [id number] Closed Auto-Generate d Referral 12/15/2021 01/14/2023 1 1 [facility] Summary Purpose Family History Relationship Condition [...] Documents on File Type Date Recorded Patient Product Management Analyst Expl anation Advance Directive(s) 02/26/2021 11:31 AM Advance Directive(s) 10/02/2020 4:46 PM Advance Directive(s) 10/24/2019 6:40 PM Advance Directive(s) 07/18/2019 8:41 AM Advance Directive(s) 06/21/2019 9:34 AM Advance Directive(s) 05/04/2019 8:22 AM Advance Directive(s) 03/22/2019 7:15 AM Advance Directive(s) 08/31/2015 1:42 PM Advance Directive(s) 08/20/2015 4:21 PM Documents on File Type Date Recorded Patient Product Management Analyst Expl anation Advance Directive(s) 02/26/2021 11:31 AM Advance Directive(s) 10/02/2020 4:46 PM Advance Directive(s) 10/24/2019 6:40 PM Advance Directive(s) 07/18/2019 8:41 AM Advance Directive(s) 06/21/2019 9:34 AM Advance Directive(s) 05/04/2019 8:22 AM Advance Directive(s) 03/22/2019 7:15 AM Advance Directive(s) 08/31/2015 1:42 PM Advance Directive(s) 08/20/2015 4:21 PM Documents on File Type Date Recorded Patient Product Management Analyst Expl anation Advance Directive(s) 12/23/2021 1:13 PM Advance Directive(s) 02/26/2021 11:31 AM Advance Directive(s) 10/02/2020 4:46 PM Advance Directive(s) 10/24/2019 6:40 PM Advance Directive(s) 07/18/2019 8:41 AM Advance Directive(s) 06/21/2019 9:34 AM Advance Directive(s) 05/04/2019 8:22 AM Advance Directive(s) 03/22/2019 7:15 AM Advance Directive(s) 08/31/2015 1:42 PM Advance Directive(s) 08/20/2015 4:21 PM Documents on File Type Date Recorded Patient Product Management Analyst Expl anation Advance Directive(s) 12/23/2021 1:13 PM Advance Directive(s) 02/26/2021 11:31 AM Advance Directive(s) 10/02/2020 4:46 PM Advance Directive(s) 10/24/2019 6:40 PM Advance Directive(s) 07/18/2019 8:41 AM Advance Directive(s) 06/21/2019 9:34 AM Advance Directive(s) 05/04/2019 8:22 AM Advance Directive(s) 03/22/2019 7:15 AM Advance Directive(s) 08/31/2015 1:42 PM Advance Directive(s) 08/20/2015 4:21 PM Documents on File Type Date Recorded Patient Product Management Analyst Expl anation Advance Directive(s) 01/02/2022 8:28 AM [...] Will No February 13 6:44pm Power of Associate Media Director No February 13 6:44pm Documents on File Type Date Recorded Patient Product Management Analyst Expl anation Advance Directive(s) 01/02/2022 8:28 AM [...] Do you have a Healthcare Power of Associate Media Director? Yes January 07, 2025 1:29pm Advance Directives No July 13, 2015 4:56pm Advance Directive Response Recorded Date/ Time Do you have a Healthcare Power of Associate Media Director? Yes January 07, 2025 5:54pm Advance Directives No July 13, 2015 4:56pm Advance Directive Response Recorded Date/ Time Do you have a Healthcare Power of Associate Media Director? Yes January 07, 2025 5:54pm Do you have a Healthcare Power of Associate Media Director? Yes February 16, 2025 12:03pm Name of Medical Power of Associate Media Director February 16, 2025 12:03pm Advance Directives No July 13, 2015 4:56pm Advance Directive Response Recorded Date/ Time Do you have a Healthcare Power of Associate Media Director? Yes January 07, 2025 5:54pm Do you have a Healthcare Power of Associate Media Director? Yes February 16, 2025 12:03pm Name of Medical Power of Associate Media Director February 16, 2025 12:03pm Do you have a Healthcare Power of Associate Media Director? Yes March 22, 2025 3:36am Advance Directives No July 13, 2015 4:56pm Advance Directive Response Recorded Date/ Time Do you have a Healthcare Power of Associate Media Director? Yes February 16, 2025 11:03am Name of Medical Power of Associate Media Director February 16, 2025 11:03am Do you have a Healthcare Power of Associate Media Director? Yes March 22, 2025 2:36am Advance Directives [...] atrial fibrillation. Previously seen by me at [facility]. At that time she had paroxysmal [...] file Gets together: Not on file Attends episcopalian service: Not on file Active member of [...] with tissue valve Moderate mitral regurgitation Other manager terminal current use of antiarrhythmic medical therapy Assessment [...] back to sinus rhythm. Dr. Washington at [facility] contacted. Mars Chung DO 01/19/2019 1:54 PM documented in this encounter Assessments Diagnosis Persistent atrial fibrillation- Primary Atrial fibrillation nursing home current use of antiarrhythmic medical therapy Moderate mitral regurgitation Mitral valve disorders Status post aortic valve replacement with tissue valve Heart valve replaced by other means Medications Administered Section Inactive Administered Medications - up to 3 most recent administrations Medication Order MAR Action Action Date Dose Rate Site benzocaine 20% 4 [place] (TOPEX) 4 [place], TOPICAL, ONCE, 1 dose, On Wed01/02/22 at [...] EXACERBATION January 11, 2025 12:3 0pm Stroke [facility] 01/07 ([place]) February 05, 2025 8:53am Reason for Visit Admit Date Chronic kidney disease, stage 3b January 4:29pm MONIQUE (acute kidney injury) January 07, 2025 4:29pm CHF exacerbation January 07, 2025 4:29p m Chronic renal failure (CRF), stage 3b Au 2024 8:53am Reason for Visit Admit Date [...] EXACERBATION January 11, 2025 12:3 0pm Stroke [facility] 7/6 ([place]) February 05, 2025 8:53am Establish [...] EXACERBATION January 11, 2025 12:3 0pm Stroke [facility] 7/6 ([facility]) February 05, 2025 8:53am Pacer Check Remote February 08, 2025 9:0 0am Establish Pacer Care February 08, 2025 9: 56am Chief Complaint Admit Date CHF EXACERBATION January 07, 2025 4:29p m CHF EXACERBATION January 08, 2025 6:49p m CHF EXACERBATION January 09, 2025 2:34p m CHF EXACERBATION January 10, 2025 6:23p m CHF EXACERBATION January 11, 2025 12:3 0pm Stroke [facility] 7/6 (Isabella) February 05, 2025 8:53am Pacer Check Remote [...] EXACERBATION January 11, 2025 12:3 0pm Stroke [facility] 7/6 ([facility]) February 05, 2025 8:53am Pacer Check Remote [...] 032024 8:49am PAF (paroxysmal atrial fibrillation) Feb us2024 8:49am Chief Complaint Admit Date CHF EXACERBATION January 07, 2025 4:29p m CHF EXACERBATION January 08, 2025 6:49p m CHF EXACERBATION January 09, 2025 2:34p m CHF EXACERBATION January 10, 2025 6:23p m CHF EXACERBATION January 11, 2025 12:3 0pm Stroke [facility] 7/6 ([place]) February 05, 2025 8:53am Pacer [...] 2024 8:49am Chronic kidney disease, stage 3b [facility] 8:57am Type 2 diabetes mellitus March 08, 2025 8:57am Ulcer of left foot with fat layer expose d March 08, 2025 8:57am Ulcer of right foot with fat layer expos ed March 08, 2025 8:57am Ulcer of right lower extremity with fat layer exposed March 08, 2025 8:57am PAD (peripheral artery disease) [facility]24 8:57[facility] Anemia March 13, 2025 1:46pm Chief Complaint Admit Date CHF EXACERBATION January 07, 2025 4:29p m CHF EXACERBATION January 08, 2025 6:49p m CHF EXACERBATION January 09, 2025 2:34p m CHF EXACERBATION January 10, 2025 6:23p m CHF EXACERBATION January 11, 2025 12:3 0pm Stroke [facility] 7/6 ([place]) February 05, 2025 8:53am Pacer [...] 2025 1:46pm Chronic kidney disease, stage 3b [facility] 20[facility] 11:00am Type 2 diabetes mellitus March 15, 2025 11:00am Ulcer of left foot with fat layer expose d March 15, 2025 11:00am Ulcer of right foot with fat layer expos ed March 15, 2025 11:00am Ulcer of right lower extremity with fat layer exposed March 15, 2025 11:00am PAD (peripheral artery disease) [facility] 2024 11:00am PAF (paroxysmal atrial fibrillation) Sep [facility] 2024 11:00am Chief Complaint Admit Date CHF EXACERBATION January 07, 2025 4:29p m CHF EXACERBATION January 08, 2025 6:49p m CHF EXACERBATION January 09, 2025 2:34p m CHF EXACERBATION January 10, 2025 6:23p m CHF EXACERBATION January 11, 2025 12:3 0pm Stroke [facility] 7/6 ([place]) February 05, 2025 8:53am Pacer [...] 2025 1:46pm Chronic kidney disease, stage 3b [facility] 2024 11:00am Type 2 diabetes mellitus March 29, 2025 11:00am Ulcer of left foot with fat layer expose d March 29, 2025 11:00am Ulcer of right foot with fat layer expos ed March 29, 2025 11:00am Ulcer of right lower extremity with fat layer exposed March 29, 2025 11:00am PAD (peripheral artery disease) [facility] 2024 11:00am PAF (paroxysmal atrial fibrillation[facility] Chief Complaint Admit Date CHF EXACERBATION January 07, 2025 4:29p m CHF EXACERBATION January 08, 2025 6:49p m CHF EXACERBATION January 09, 2025 2:34p m CHF EXACERBATION January 10, 2025 6:23p m CHF EXACERBATION January 11, 2025 12:3 0pm Stroke [facility] 7/6 [facility] February 05, 2025 8:53am Pacer Check Remote [...] 2025 1:46pm Chronic kidney disease, stage 3[facility] 11:00am Type 2 diabetes mellitus [...] (paroxysmal atrial fibrillation) Sep [facility] 2024 11:00am Chronic kidney disease, stage 3b [...] EXACERBATION January 11, 2025 12:3 0pm Stroke [facility] 7 ([place]) February 05, 2025 8:53am Pacer Check [...] 2025 1:46pm Chronic kidney disease, stage 3b 2024 11:00am Type 2 diabetes mellitus March 29, 2025 11:00am Ulcer of left foot with fat layer expose d March 29, 2025 11:00am Ulcer of right foot with fat layer expos ed March 29, 2025 11:00am Ulcer of right lower extremity with fat layer exposed March 29, 2025 11:00am PAD (peripheral artery disease) [facility] 2024 11:00am PAF (paroxysmal atrial fibrillation) [facility] 2024 11:00am Anemia of chronic renal failure, [...] May 11:22am Chief Complaint Admit Date Stroke [facility] 7/6 ([place]) February 05, 2025 8:53am Pacer [...] TOMOGRAPHY THORAX W/O CNTRST Doreen Le PA-C [address] [place] [address] Ct Imaging Referral ID Status Reason Start Date Expiration Date Visits Requested Visits Authorized [id number] Pending Review Auto-Generat ed Referral 07/07/2022 05/06/2023 1 1 Specialty Diagnoses / Procedures Referred By Contac t Referred To Contact Hematology Diagnoses Iron deficiency anemia due to chronic blood loss Procedures CONSULT TO HEMATOLOGY OFFICE/OUTPATIENT [facility] MDM 60-74 MINUTES Doreen Le PA-C [address] [place] [address] Referral ID Status Reason Start Date Expiration Date Visits Requested Visits Authorized [id number] Pending Review PCP Requested Referral 04/06/2022 04/06/2023 1 1 Specialty Diagnoses / Procedures Referred By Contac t Referred To Contact MR IMAGING Diagnoses 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 Procedures MRA BRAIN WO/W IVCON MRA; HEAD W & WO CONTRAST Doreen Le PA-C [address] [place] [address] Mr Imaging Referral ID Status Reason Start Date Expiration Date Visits Requested Visits Authorized [id number] Pending Review Auto-Generat ed Referral 07/07/2022 08/06/2023 1 1 Specialty Diagnoses / Procedures Referred By Contac t Referred To Contact Vascular Surgery Diagnoses PVD (peripheral vascular disease) with claudication (HCC) Procedures CONSULT TO VASCULAR SURGERY OFFICE/OUTPATIENT [facility] 60-74 MINUTES Doreen Le PA-C [address] [place] [address] Referral ID Status Reason Start Date Expiration Date Visits Requested Visits Authorized [id number] Pending Review PCP Requested Referral 01/28/2023 01/28/2024 1 1 Specialty Diagnoses / Procedures Referred By Contac t Referred To Contact CT IMAGING Diagnoses Lung nodule, solitary Procedures CT CHEST WO IVCON DIAGNOSTIC COMPUTED TOMOGRAPHY THORAX W/O CNTRST Doreen Le PA-C [address] [place] [address] [place] [id number] Referral ID Status Reason Start Date Expiration Date V isits Requested Visits Authorized [id number] Closed Auto-Generate d Referral 07/07/2022 05/06/2023 1 1 Specialty Diagnoses / Procedures Referred By Contac t Referred To Contact Hematology Diagnoses 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 Procedures CONSULT TO HEMATOLOGY OFFICE/OUTPATIENT [facility] MDM 60 MINUTES Doreen Le PA-C [address] [place] [address] Referral ID Status Reason Start Date Expiration Date Visits Requested Visits Authorized [id number] Authorized PCP Requested Referral 11/15/2023 11/14/2024 1 1 Additional Source Comments INFORMATION SOURCE (unrecogn ized section and content) DATE CREATED AUTHOR 12/22/2017 [facility] DATE CREATED AUTHOR AUTHOR'S ORGANIZ ATION 03/09/2019 [facility] DATE CREATED AUTHOR AUTHOR'S ORGANIZ ATION 02/21/2021 [facility] DATE CREATED AUTHOR AUTHOR'S ORGANIZ ATION 11/09/2023 [facility] DATE CREATED AUTHOR AUTHOR'S ORGANIZ ATION 02/09/2024 [facility] DATE CREATED AUTHOR AUTHOR'S ORGANIZ ATION 12/27/2024 [facility] DATE CREATED AUTHOR AUTHOR'S ORGANIZ ATION 01/02/2025 [facility] DATE CREATED AUTHOR AUTHOR'S ORGANIZ ATION 05/16/2025 [facility] Reason for Visit (unrecogniz ed section and content) Reason Comments Non-Chemotherapy Treatment Specialty Diagnoses / Procedures Referred By Contac t Referred To Contact Diagnoses 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 Procedures IRON SUCROSE INJECTION PER 1 MG Ralph Mujica DO [address] [place] [address] [facility] [address] [place] [address] Referral ID Status Reason Start Date Expiration Date V isits Requested Visits Authorized [id number] Authorized 04/07/2022 07/04/2022 99 99 Reason Comments Follow Up Specialty Diagnoses / Procedures Referred By Leilani ng Referred To Contact Cardiology / CARD ADMIN [facility] Diagnoses Follow-up examination 6 month follow up Procedures OFFICE/OUTPATIENT ESTABLISHED MOD MDM 30-39 MIN EST PATIENT Carla Burdick MD [address] [place] [address] Carla Burdick MD [address] [place] [address] Referral ID Status Reason Start Date Expiration Date Visits Re quested Visits Authorized [id number] Closed 03/30/2022 07/04/2022 1 1 Reason Comments [...] MINUTES NEW DDI PATIENT Doreen Le PA-C [address] [place] [address] Chai Encinas MD [address] [place] [address] Referral ID Status Reason Start Date Expiration Date V isits Requested Visits Authorized [id number] 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 01/01/2022 07/04/2022 1 1 Reason Comments 01-02-2022 egd reyes Reason Comments Patient Education EPS-Watchman Reason Comments Rectal Problem Reason Comments Rash blisterlike rash wit h pain & swelling-RIGHT side of face x 2 days Specialty Diagnoses / Procedures Referred By Leilani ng Referred To Contact Family Practice / FAMILY MEDICINE Diagnoses swelling, tenderness on right side of face near hairline Procedures 4C EST Self, Doreen Jackson, BOUBACAR [address] [place] [address] Referral ID Status Reason Start Date Expiration Date Visits Re quested Visits Authorized [id number] Closed 01/16/2022 07/04/2022 1 1 Reason Onset Date Comments Refill Request 01/19/2022 Reason Comments Patient Question ORDER FOR ABDIEL AND EC G Reason Comments Diarrhea A few weeks Specialty Diagnoses / Procedures Referred By Leilani ng Referred To Contact Family Practice / FAMILY MEDICINE Diagnoses Chronic diarrhea Procedures MYC OFFICE VISIT Self, Doreen Jackson, BOUBACAR [address] [place] [address] Referral ID Status Reason Start Date Expiration Date Visits Re quested Visits Authorized [id number] Closed 02/20/2022 07/04/2022 1 1 Reason Comments Procedure Follow Up EGD completed on 01/02 Reason Onset Date Comments Transition Of Care 02/25/2022 [facility] D/C 02/24/2023 Reason Comments Reminder Call Transesophageal Echo 03/03/22 Specialty Diagnoses / Procedures Referred By Contact Referred To Contact Cardiology / CARDIOVASCULAR MEDICINE Diagnoses Paroxysmal atrial fibrillation Presence of Watchman left atrial appendage closure device Per [facility]gent Teams Procedures REFERRAL TO [facility]ANCIAL COUNSEL[facility] EST CLINICIAN Chandler Swan MD [address] [place] [address] Radha Torres APRN.[employer] MENDER [address] [place] [address] Referral ID Status Reason Start Date Expiration Date Visits Requested Visits Authorized [id number] 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 [...] MYC OFFICE VISIT Self Doreen Le PA-C [address] [place] [address] Referral ID Status Reason Start Date Expiration Date Visits Re quested Visits Authorized [id number] Closed 03/03/2022 07/04/2022 1 1 Reason Onset Date Comments Transition Of Care 03/20/2022 [facility] readmissi on Reason Onset Date Comments Appointment 03/21/2022 Reason Comments [facility] [employer] [facility] - Other CHF Reason Comments Hospital Follow [...] TOMOGRAPHY THORAX W/O CNTRST Doreen Le PA-C [address] [place] [address] [place] [address] Referral ID Status Reason Start Date Expiration Date V isits Requested Visits Authorized [id number] Closed Auto-Generate d Referral 07/07/2022 05/06/2023 1 1 Reason Comments Radiology US Specialty Diagnoses / Procedures Referred By Contac t Referred To Contact US IMAGING Diagnoses Neoplasm of uncertain behavior of right kidney Procedures US KIDNEY/BLADDER US RETROPERITONEAL REAL TIME W/IMAGE COMPLETE Brayan Chicas MD [address] [place] [address] [place] [address] Referral ID Status Reason Start Date Expiration Date V isits Requested Visits Authorized [id number] Closed Auto-Generate d Referral 09/02/2022 05/09/2023 1 1 Reason Comments Cough Chest congestion x l ast night Reason Comments Patient Update Reason Comments Leg Edema Reason Comments Results Orders Reason Comments Follow Up 6 month Reason Comments Established Patient Reason Comments Initial Consult HEART FAILURE [address] Reason Comments Transition Of Care Reason Onset Date Comments ACM CECY RN 11/16/2023 E.D. Utilizat ion Review per Payer Request. Reason Comments Patient Question Reason Comments Hospital Follow Up [facility] follow up dc'd 11/12/23 dx: CHF [...] Follow Up hospital follow up- CHF in [facility] for 23 days, discharged October 28 Reason [...] or prosecute any alcohol or drug abuse patient.[facility] Health[facility] the event this information is protected by the Federal Confidentiality of Alcohol and Drug Abuse Patient Records regulations: The Federal rules restrict any use of the information to criminally investigate or prosecute any alcohol or drug abuse patient.[facility] HealthIn the event this information is protected by the Federal Confidentiality of Alcohol and Drug Abuse Patient Records regulations: The Federal rules restrict any use of the information to criminally investigate or prosecute any alcohol or drug abuse patient.[facility] HealthIn the event this information is protected by the Federal Confidentiality of Alcohol and Drug Abuse Patient Records regulations: The Federal rules restrict any use of the information to criminally investigate or prosecute any alcohol or drug abuse patient.[facility] HealthIn the event this information is protected by the Federal Confidentiality of Alcohol and Drug Abuse Patient Records regulations: The Federal rules restrict any use of the information to criminally investigate or prosecute any alcohol or drug abuse patient.[facility] HealthIn the event this information is protected by the Federal Confidentiality of Alcohol and Drug Abuse Patient Records regulations: The Federal rules restrict any use of the information to criminally investigate or prosecute any alcohol or drug abuse patient.[facility] HealthIn the event this information is protected by the Federal Confidentiality of Alcohol and Drug Abuse Patient Records regulations: The Federal rules restrict any use of the information to criminally investigate or prosecute any alcohol or drug abuse patient.[facility] HealthIn the event this information is protected by the Federal Confidentiality of Alcohol and Drug Abuse Patient Records regulations: The Federal rules restrict any use of the information to criminally investigate or prosecute any alcohol or drug abuse patient.[facility] HealthIn the event this information is protected by the Federal Confidentiality of Alcohol and Drug Abuse Patient Records regulations: The Federal rules restrict any use of the information to criminally investigate or prosecute any alcohol or drug abuse patient.[facility] HealthIn the event this information is protected by the Federal Confidentiality of Alcohol and Drug Abuse Patient Records regulations: The Federal rules restrict any use of the information to criminally investigate or prosecute any alcohol or drug abuse patient.[facility] HealthIn the event this information is protected by the Federal Confidentiality of Alcohol and Drug Abuse Patient Records regulations: The Federal rules restrict any use of the information to criminally investigate or prosecute any alcohol or drug abuse patient.[facility] HealthIn the event this information is protected by the Federal Confidentiality of Alcohol and Drug Abuse Patient Records regulations: The Federal rules restrict any use of the information to criminally investigate or prosecute any alcohol or drug abuse patient.[facility] HealthIn the event this information is protected by the Federal Confidentiality of Alcohol and Drug Abuse Patient Records regulations: The Federal rules restrict any use of the information to criminally investigate or prosecute any alcohol or drug abuse patient.[facility] the event this information is protected by the Federal Confidentiality of Alcohol and Drug Abuse Patient Records regulations: The Federal rules restrict any use of the information to criminally investigate or prosecute any alcohol or drug abuse patient.[facility] HealthIn the event this information is protected by the Federal Confidentiality of Alcohol and Drug Abuse Patient Records regulations: The Federal rules restrict any use of the information to criminally investigate or prosecute any alcohol or drug abuse patient.[facility] HealthIn the event this information is protected by the Federal Confidentiality of Alcohol and Drug Abuse Patient Records regulations: The Federal rules restrict any use of the information to criminally investigate or prosecute any alcohol or drug abuse patient.[facility] HealthIn the event this information is protected by the Federal Confidentiality of Alcohol and Drug Abuse Patient Records regulations: The Federal rules restrict any use of the information to criminally investigate or prosecute any alcohol or drug abuse patient.[facility] HealthIn the event this information is protected by the Federal Confidentiality of Alcohol and Drug Abuse Patient Records regulations: The Federal rules restrict any use of the information to criminally investigate or prosecute any alcohol or drug abuse patient.[facility] HealthIn the event this information is protected by the Federal Confidentiality of Alcohol and Drug Abuse Patient Records regulations: The Federal rules restrict any use of the information to criminally investigate or prosecute any alcohol or drug abuse patient.[facility]In the event this information is protected by the Federal Confidentiality of Alcohol and Drug Abuse Patient Records regulations: The Federal rules restrict any use of the information to criminally investigate or prosecute any alcohol or drug abuse patient.[facility] HealthIn the event this information is protected by the Federal Confidentiality of Alcohol and Drug Abuse Patient Records regulations: The Federal rules restrict any use of the information to criminally investigate or prosecute any alcohol or drug abuse patient.[facility] HealthIn the event this information is protected by the Federal Confidentiality of Alcohol and Drug Abuse Patient Records regulations: The Federal rules restrict any use of the information to criminally investigate or prosecute any alcohol or drug abuse patient.[facility] HealthIn the event this information is protected by the Federal Confidentiality of Alcohol and Drug Abuse Patient Records regulations: The Federal rules restrict any use of the information to criminally investigate or prosecute any alcohol or drug abuse patient.[facility] HealthIn the event this information is protected by the Federal Confidentiality of Alcohol and Drug Abuse Patient Records regulations: The Federal rules restrict any use of the information to criminally investigate or prosecute any alcohol or drug abuse patient.[facility] HealthIn the event this information is protected by the Federal Confidentiality of Alcohol and Drug Abuse Patient Records regulations: The Federal rules restrict any use of the information to criminally investigate or prosecute any alcohol or drug abuse patient.[facility] HealthIn the event this information is protected by the Federal Confidentiality of Alcohol and Drug Abuse Patient Records regulations: The Federal rules restrict any use of the information to criminally investigate or prosecute any alcohol or drug abuse patient.[facility] HealthIn the event this information is protected by the Federal Confidentiality of Alcohol and Drug Abuse Patient Records regulations: The Federal rules restrict any use of the information to criminally investigate or prosecute any alcohol or drug abuse patient.[facility]In the event this information is protected by the Federal Confidentiality of Alcohol and Drug Abuse Patient Records regulations: The Federal rules restrict any use of the information to criminally investigate or prosecute any alcohol or drug abuse patient.[facility] HealthIn the event this information is protected by the Federal Confidentiality of Alcohol and Drug Abuse Patient Records regulations: The Federal rules restrict any use of the information to criminally investigate or prosecute any alcohol or drug abuse patient.[facility] HealthIn the event this information is protected by the Federal Confidentiality of Alcohol and Drug Abuse Patient Records regulations: The Federal rules restrict any use of the information to criminally investigate or prosecute any alcohol or drug abuse patient.[facility] HealthIn the event this information is protected by the Federal Confidentiality of Alcohol and Drug Abuse Patient Records regulations: The Federal rules restrict any use of the information to criminally investigate or prosecute any alcohol or drug abuse patient.[facility] HealthIn the event this information is protected by the Federal Confidentiality of Alcohol and Drug Abuse Patient Records regulations: The Federal rules restrict any use of the information to criminally investigate or prosecute any alcohol or drug abuse patient.[facility] HealthIn the event this information is protected by the Federal Confidentiality of Alcohol and Drug Abuse Patient Records regulations: The Federal rules restrict any use of the information to criminally investigate or prosecute any alcohol or drug abuse patient.[facility]In the event this information is protected by the Federal Confidentiality of Alcohol and Drug Abuse Patient Records regulations: The Federal rules restrict any use of the information to criminally investigate or prosecute any alcohol or drug abuse patient.[facility]In the event this information is protected by the Federal Confidentiality of Alcohol and Drug Abuse Patient Records regulations: The Federal rules restrict any use of the information to criminally investigate or prosecute any alcohol or drug abuse patient.[facility]In the event this information is protected by the Federal Confidentiality of Alcohol and Drug Abuse Patient Records regulations: The Federal rules restrict any use of the information to criminally investigate or prosecute any alcohol or drug abuse patient.[facility]In the event this information is protected by the Federal Confidentiality of Alcohol and Drug Abuse Patient Records regulations: The Federal rules restrict any use of the information to criminally investigate or prosecute any alcohol or drug abuse patient.[facility]In the event this information is protected by the Federal Confidentiality of Alcohol and Drug Abuse Patient Records regulations: The Federal rules restrict any use of the information to criminally investigate or prosecute any alcohol or drug abuse patient.[facility]In the event this information is protected by the Federal Confidentiality of Alcohol and Drug Abuse Patient Records regulations: The Federal rules restrict any use of the information to criminally investigate or prosecute any alcohol or drug abuse patient.[facility]In the event this information is protected by the Federal Confidentiality of Alcohol and Drug Abuse Patient Records regulations: The Federal rules restrict any use of the information to criminally investigate or prosecute any alcohol or drug abuse patient.[facility]In the event this information is protected by the Federal Confidentiality of Alcohol and Drug Abuse Patient Records regulations: The Federal rules restrict any use of the information to criminally investigate or prosecute any alcohol or drug abuse patient.[facility]In the event this information is protected by the Federal Confidentiality of Alcohol and Drug Abuse Patient Records regulations: The Federal rules restrict any use of the information to criminally investigate or prosecute any alcohol or drug abuse patient.[facility]In the event this information is protected by the Federal Confidentiality of Alcohol and Drug Abuse Patient Records regulations: The Federal rules restrict any use of the information to criminally investigate or prosecute any alcohol or drug abuse patient.[facility]In the event this information is protected by the Federal Confidentiality of Alcohol and Drug Abuse Patient Records regulations: The Federal rules restrict any use of the information to criminally investigate or prosecute any alcohol or drug abuse patient.[facility]In the event this information is protected by the Federal Confidentiality of Alcohol and Drug Abuse Patient Records regulations: The Federal rules restrict any use of the information to criminally investigate or prosecute any alcohol or drug abuse patient.[facility]In the event this information is protected by the Federal Confidentiality of Alcohol and Drug Abuse Patient Records regulations: The Federal rules restrict any use of the information to criminally investigate or prosecute any alcohol or drug abuse patient.[facility]In the event this information is protected by the Federal Confidentiality of Alcohol and Drug Abuse Patient Records regulations: The Federal rules restrict any use of the information to criminally investigate or prosecute any alcohol or drug abuse patient.[facility]In the event this information is protected by the Federal Confidentiality of Alcohol and Drug Abuse Patient Records regulations: The Federal rules restrict any use of the information to criminally investigate or prosecute any alcohol or drug abuse patient.[facility]In the event this information is protected by the Federal Confidentiality of Alcohol and Drug Abuse Patient Records regulations: The Federal rules restrict any use of the information to criminally investigate or prosecute any alcohol or drug abuse patient.[facility]In the event this information is protected by the Federal Confidentiality of Alcohol and Drug Abuse Patient Records regulations: The Federal rules restrict any use of the information to criminally investigate or prosecute any alcohol or drug abuse patient.[facility]In the event this information is protected by the Federal Confidentiality of Alcohol and Drug Abuse Patient Records regulations: The Federal rules restrict any use of the information to criminally investigate or prosecute any alcohol or drug abuse patient.[facility]In the event this information is protected by the Federal Confidentiality of Alcohol and Drug Abuse Patient Records regulations: The Federal rules restrict any use of the information to criminally investigate or prosecute any alcohol or drug abuse patient.[facility]In the event this information is protected by the Federal Confidentiality of Alcohol and Drug Abuse Patient Records regulations: The Federal rules restrict any use of the information to criminally investigate or prosecute any alcohol or drug abuse patient.[facility]In the event this information is protected by the Federal Confidentiality of Alcohol and Drug Abuse Patient Records regulations: The Federal rules restrict any use of the information to criminally investigate or prosecute any alcohol or drug abuse patient.[facility]In the event this information is protected by the Federal Confidentiality of Alcohol and Drug Abuse Patient Records regulations: The Federal rules restrict any use of the information to criminally investigate or prosecute any alcohol or drug abuse patient.[facility]In the event this information is protected by the Federal Confidentiality of Alcohol and Drug Abuse Patient Records regulations: The Federal rules restrict any use of the information to criminally investigate or prosecute any alcohol or drug abuse patient.[facility]In the event this information is protected by the Federal Confidentiality of Alcohol and Drug Abuse Patient Records regulations: The Federal rules restrict any use of the information to criminally investigate or prosecute any alcohol or drug abuse patient.[facility]In the event this information is protected by the Federal Confidentiality of Alcohol and Drug Abuse Patient Records regulations: The Federal rules restrict any use of the information to criminally investigate or prosecute any alcohol or drug abuse patient.[facility]In the event this information is protected by the Federal Confidentiality of Alcohol and Drug Abuse Patient Records regulations: The Federal rules restrict any use of the information to criminally investigate or prosecute any alcohol or drug abuse patient.[facility]In the event this information is protected by the Federal Confidentiality of Alcohol and Drug Abuse Patient Records regulations: The Federal rules restrict any use of the information to criminally investigate or prosecute any alcohol or drug abuse patient.[facility]In the event this information is protected by the Federal Confidentiality of Alcohol and Drug Abuse Patient Records regulations: The Federal rules restrict any use of the information to criminally investigate or prosecute any alcohol or drug abuse patient.[facility]In the event this information is protected by the Federal Confidentiality of Alcohol and Drug Abuse Patient Records regulations: The Federal rules restrict any use of the information to criminally investigate or prosecute any alcohol or drug abuse patient.[facility]In the event this information is protected by the Federal Confidentiality of Alcohol and Drug Abuse Patient Records regulations: The Federal rules restrict any use of the information to criminally investigate or prosecute any alcohol or drug abuse patient.[facility] the event this information is protected by the Federal Confidentiality of Alcohol and Drug Abuse Patient Records regulations: The Federal rules restrict any use of the information to criminally investigate or prosecute any alcohol or drug abuse patient.[facility]In the event this information is protected by the Federal Confidentiality of Alcohol and Drug Abuse Patient Records regulations: The Federal rules restrict any use of the information to criminally investigate or prosecute any alcohol or drug abuse patient.[facility]In the event this information is protected by the Federal Confidentiality of Alcohol and Drug Abuse Patient Records regulations: The Federal rules restrict any use of the information to criminally investigate or prosecute any alcohol or drug abuse patient.[facility]In the event this information is protected by the Federal Confidentiality of Alcohol and Drug Abuse Patient Records regulations: The Federal rules restrict any use of the information to criminally investigate or prosecute any alcohol or drug abuse patient.[facility]In the event this information is protected by the Federal Confidentiality of Alcohol and Drug Abuse Patient Records regulations: The Federal rules restrict any use of the information to criminally investigate or prosecute any alcohol or drug abuse patient.[facility]In the event this information is protected by the Federal Confidentiality of Alcohol and Drug Abuse Patient Records regulations: The Federal rules restrict any use of the information to criminally investigate or prosecute any alcohol or drug abuse patient.[facility]In the event this information is protected by the Federal Confidentiality of Alcohol and Drug Abuse Patient Records regulations: The Federal rules restrict any use of the information to criminally investigate or prosecute any alcohol or drug abuse patient.[facility]In the event this information is protected by the Federal Confidentiality of Alcohol and Drug Abuse Patient Records regulations: The Federal rules restrict any use of the information to criminally investigate or prosecute any alcohol or drug abuse patient.[facility]In the event this information is protected by the Federal Confidentiality of Alcohol and Drug Abuse Patient Records regulations: The Federal rules restrict any use of the information to criminally investigate or prosecute any alcohol or drug abuse patient.[facility]In the event this information is protected by the Federal Confidentiality of Alcohol and Drug Abuse Patient Records regulations: The Federal rules restrict any use of the information to criminally investigate or prosecute any alcohol or drug abuse patient.[facility]In the event this information is protected by the Federal Confidentiality of Alcohol and Drug Abuse Patient Records regulations: The Federal rules restrict any use of the information to criminally investigate or prosecute any alcohol or drug abuse patient.[facility]In the event this information is protected by the Federal Confidentiality of Alcohol and Drug Abuse Patient Records regulations: The Federal rules restrict any use of the information to criminally investigate or prosecute any alcohol or drug abuse patient.[facility]In the event this information is protected by the Federal Confidentiality of Alcohol and Drug Abuse Patient Records regulations: The Federal rules restrict any use of the information to criminally investigate or prosecute any alcohol or drug abuse patient.[facility]In the event this information is protected by the Federal Confidentiality of Alcohol and Drug Abuse Patient Records regulations: The Federal rules restrict any use of the information to criminally investigate or prosecute any alcohol or drug abuse patient.[facility]In the event this information is protected by the Federal Confidentiality of Alcohol and Drug Abuse Patient Records regulations: The Federal rules restrict any use of the information to criminally investigate or prosecute any alcohol or drug abuse patient.[facility]In the event this information is protected by the Federal Confidentiality of Alcohol and Drug Abuse Patient Records regulations: The Federal rules restrict any use of the information to criminally investigate or prosecute any alcohol or drug abuse patient.[facility]In the event this information is protected by the Federal Confidentiality of Alcohol and Drug Abuse Patient Records regulations: The Federal rules restrict any use of the information to criminally investigate or prosecute any alcohol or drug abuse patient.[facility]In the event this information is protected by the Federal Confidentiality of Alcohol and Drug Abuse Patient Records regulations: The Federal rules restrict any use of the information to criminally investigate or prosecute any alcohol or drug abuse patient.[facility]In the event this information is protected by the Federal Confidentiality of Alcohol and Drug Abuse Patient Records regulations: The Federal rules restrict any use of the information to criminally investigate or prosecute any alcohol or drug abuse patient.[facility]In the event this information is protected by the Federal Confidentiality of Alcohol and Drug Abuse Patient Records regulations: The Federal rules restrict any use of the information to criminally investigate or prosecute any alcohol or drug abuse patient.[facility]In the event this information is protected by the Federal Confidentiality of Alcohol and Drug Abuse Patient Records regulations: The Federal rules restrict any use of the information to criminally investigate or prosecute any alcohol or drug abuse patient.[facility]In the event this information is protected by the Federal Confidentiality of Alcohol and Drug Abuse Patient Records regulations: The Federal rules restrict any use of the information to criminally investigate or prosecute any alcohol or drug abuse patient.[facility]In the event this information is protected by the Federal Confidentiality of Alcohol and Drug Abuse Patient Records regulations: The Federal rules restrict any use of the information to criminally investigate or prosecute any alcohol or drug abuse patient.[facility]In the event this information is protected by the Federal Confidentiality of Alcohol and Drug Abuse Patient Records regulations: The Federal rules restrict any use of the information to criminally investigate or prosecute any alcohol or drug abuse patient.[facility]In the event this information is protected by the Federal Confidentiality of Alcohol and Drug Abuse Patient Records regulations: The Federal rules restrict any use of the information to criminally investigate or prosecute any alcohol or drug abuse patient.[facility]In the event this information is protected by the Federal Confidentiality of Alcohol and Drug Abuse Patient Records regulations: The Federal rules restrict any use of the information to criminally investigate or prosecute any alcohol or drug abuse patient.[facility]In the event this information is protected by the Federal Confidentiality of Alcohol and Drug Abuse Patient Records regulations: The Federal rules restrict any use of the information to criminally investigate or prosecute any alcohol or drug abuse patient.[facility]In the event this information is protected by the Federal Confidentiality of Alcohol and Drug Abuse Patient Records regulations: The Federal rules restrict any use of the information to criminally investigate or prosecute any alcohol or drug abuse patient.[facility]In the event this information is protected by the Federal Confidentiality of Alcohol and Drug Abuse Patient Records regulations: The Federal rules restrict any use of the information to criminally investigate or prosecute any alcohol or drug abuse patient.[facility]In the event this information is protected by the Federal Confidentiality of Alcohol and Drug Abuse Patient Records regulations: The Federal rules restrict any use of the information to criminally investigate or prosecute any alcohol or drug abuse patient.[facility]In the event this information is protected by the Federal Confidentiality of Alcohol and Drug Abuse Patient Records regulations: The Federal rules restrict any use of the information to criminally investigate or prosecute any alcohol or drug abuse patient.[facility]In the event this information is protected by the Federal Confidentiality of Alcohol and Drug Abuse Patient Records regulations: The Federal rules restrict any use of the information to criminally investigate or prosecute any alcohol or drug abuse patient.[facility]In the event this information is protected by the Federal Confidentiality of Alcohol and Drug Abuse Patient Records regulations: The Federal rules restrict any use of the information to criminally investigate or prosecute any alcohol or drug abuse patient.[facility]In the event this information is protected by the Federal Confidentiality of Alcohol and Drug Abuse Patient Records regulations: The Federal rules restrict any use of the information to criminally investigate or prosecute any alcohol or drug abuse patient.[facility]In the event this information is protected by the Federal Confidentiality of Alcohol and Drug Abuse Patient Records regulations: The Federal rules restrict any use of the information to criminally investigate or prosecute any alcohol or drug abuse patient.[facility]In the event this information is protected by the Federal Confidentiality of Alcohol and Drug Abuse Patient Records regulations: The Federal rules restrict any use of the information to criminally investigate or prosecute any alcohol or drug abuse patient.[facility]In the event this information is protected by the Federal Confidentiality of Alcohol and Drug Abuse Patient Records regulations: The Federal rules restrict any use of the information to criminally investigate or prosecute any alcohol or drug abuse patient.[facility]In the event this information is protected by the Federal Confidentiality of Alcohol and Drug Abuse Patient Records regulations: The Federal rules restrict any use of the information to criminally investigate or prosecute any alcohol or drug abuse patient.[facility]In the event this information is protected by the Federal Confidentiality of Alcohol and Drug Abuse Patient Records regulations: The Federal rules restrict any use of the information to criminally investigate or prosecute any alcohol or drug abuse patient.[facility]In the event this information is protected by the Federal Confidentiality of Alcohol and Drug Abuse Patient Records regulations: The Federal rules restrict any use of the information to criminally investigate or prosecute any alcohol or drug abuse patient.[facility]In the event this information is protected by the Federal Confidentiality of Alcohol and Drug Abuse Patient Records regulations: The Federal rules restrict any use of the information to criminally investigate or prosecute any alcohol or drug abuse patient.[facility]In the event this information is protected by the Federal Confidentiality of Alcohol and Drug Abuse Patient Records regulations: The Federal rules restrict any use of the information to criminally investigate or prosecute any alcohol or drug abuse patient.[facility]In the event this information is protected by the Federal Confidentiality of Alcohol and Drug Abuse Patient Records regulations: The Federal rules restrict any use of the information to criminally investigate or prosecute any alcohol or drug abuse patient.[facility]In the event this information is protected by the Federal Confidentiality of Alcohol and Drug Abuse Patient Records regulations: The Federal rules restrict any use of the information to criminally investigate or prosecute any alcohol or drug abuse patient.[facility]In the event this information is protected by the Federal Confidentiality of Alcohol and Drug Abuse Patient Records regulations: The Federal rules restrict any use of the information to criminally investigate or prosecute any alcohol or drug abuse patient.[facility]In the event this information is protected by the Federal Confidentiality of Alcohol and Drug Abuse Patient Records regulations: The Federal rules restrict any use of the information to criminally investigate or prosecute any alcohol or drug abuse patient.[facility]In the event this information is protected by the Federal Confidentiality of Alcohol and Drug Abuse Patient Records regulations: The Federal rules restrict any use of the information to criminally investigate or prosecute any alcohol or drug abuse patient.[facility]In the event this information is protected by the Federal Confidentiality of Alcohol and Drug Abuse Patient Records regulations: The Federal rules restrict any use of the information to criminally investigate or prosecute any alcohol or drug abuse patient.[facility]In the event this information is protected by the Federal Confidentiality of Alcohol and Drug Abuse Patient Records regulations: The Federal rules restrict any use of the information to criminally investigate or prosecute any alcohol or drug abuse patient.[facility]In the event this information is protected by the Federal Confidentiality of Alcohol and Drug Abuse Patient Records regulations: The Federal rules restrict any use of the information to criminally investigate or prosecute any alcohol or drug abuse patient.[facility] the event this information is protected by the Federal Confidentiality of Alcohol and Drug Abuse Patient Records regulations: The Federal rules restrict any use of the information to criminally investigate or prosecute any alcohol or drug abuse patient.[facility]In the event this information is protected by the Federal Confidentiality of Alcohol and Drug Abuse Patient Records regulations: The Federal rules restrict any use of the information to criminally investigate or prosecute any alcohol or drug abuse patient.[facility]In the event this information is protected by the Federal Confidentiality of Alcohol and Drug Abuse Patient Records regulations: The Federal rules restrict any use of the information to criminally investigate or prosecute any alcohol or drug abuse patient.[facility]In the event this information is protected by the Federal Confidentiality of Alcohol and Drug Abuse Patient Records regulations: The Federal rules restrict any use of the information to criminally investigate or prosecute any alcohol or drug abuse patient.[facility]In the event this information is protected by the Federal Confidentiality of Alcohol and Drug Abuse Patient Records regulations: The Federal rules restrict any use of the information to criminally investigate or prosecute any alcohol or drug abuse patient.[facility]In the event this information is protected by the Federal Confidentiality of Alcohol and Drug Abuse Patient Records regulations: The Federal rules restrict any use of the information to criminally investigate or prosecute any alcohol or drug abuse patient.[facility]In the event this information is protected by the Federal Confidentiality of Alcohol and Drug Abuse Patient Records regulations: The Federal rules restrict any use of the information to criminally investigate or prosecute any alcohol or drug abuse patient.[facility]In the event this information is protected by the Federal Confidentiality of Alcohol and Drug Abuse Patient Records regulations: The Federal rules restrict any use of the information to criminally investigate or prosecute any alcohol or drug abuse patient.[facility] HealthIn the event this information is protected by the Federal Confidentiality of Alcohol and Drug Abuse Patient Records regulations: The Federal rules restrict any use of the information to criminally investigate or prosecute any alcohol or drug abuse patient.[facility] HealthIn the event this information is protected by the Federal Confidentiality of Alcohol and Drug Abuse Patient Records regulations: The Federal rules restrict any use of the information to criminally investigate or prosecute any alcohol or drug abuse patient.[facility] HealthIn the event this information is protected by the Federal Confidentiality of Alcohol and Drug Abuse Patient Records regulations: The Federal rules restrict any use of the information to criminally investigate or prosecute any alcohol or drug abuse patient.[facility] HealthIn the event this information is protected by the Federal Confidentiality of Alcohol and Drug Abuse Patient Records regulations: The Federal rules restrict any use of the information to criminally investigate or prosecute any alcohol or drug abuse patient.[facility] Teams (unrecognized sec tion and content) Safety Technician Relationship Specialty Start Date End Date Doreen Le PA-C [address] [place], [place] 033681 PCP - General Family Practice 11/26/16 No, Referral Referring 01/31/19 [place] [address] [address] [place], [place] 3696826 Primary Staff Physician Cardiology 07/15/21 Safety Technician Relationship Specialty Start Date End Date Doreen Le PA-C [address] [place] [address] PCP - General Family Practice 11/26/16 No, Referral Referring 01/31/19 [place] [address] [address] [place], [place] 3608626 Primary Staff Physician Cardiology 07/15/21 Safety Technician Relationship Specialty Start Date End Date Doreen Le PA-C [address] [place], [place] 175581 PCP - General Family Practice 11/26/16 No, Referral Referring 01/31/19 [place] [address] [address] [place], [place] 0850859 [phone] Primary Staff Physician Cardiology 07/15/21 Safety Technician Relationship Specialty Start Date End Date Doreen Le PA-C [address] [place], [place] 539071 PCP - General Family Practice 11/26/16 No, Referral Referring 01/31/19 [place] [address] [address] [place], [place] 2491673 [phone] Primary Staff Physician Cardiology 07/15/21 Safety Technician Relationship Specialty Start Date End Date Doreen eL PA-C [address] [place] [address] PCP - General Family Practice 11/26/16 No, Referral Referring 01/31/19 [place] [address] [facility] [place] [place] 5463604 [phone] Primary Staff Physician Cardiology 07/15/21 Safety Technician Relationship Specialty Start Date End Date Doreen Le PA-C [address] [place] [address] PCP - General Family Practice 11/26/16 No, Referral Referring 01/31/19 [place] [address] [address] [place], [place] 6611031 [phone] Primary Staff Physician Cardiology 07/15/21 Safety Technician Relationship Specialty Start Date End Date Doreen Le PA-C [address] [place] [address] PCP - General Family Practice 11/26/16 No, Referral Referring 01/31/19 [place] [address] [address] [place], [place] 3547146 [phone] Primary Staff Physician Cardiology 07/15/21 Safety Technician Relationship Specialty Start Date End Date Doreen Le PA-C [address] [place] [address] PCP - General Family Practice 11/26/16 No, Referral Referring 01/31/19 [place] [address] [place], [place] 3318307 [phone] Primary Staff Physician Cardiology 07/15/21 Safety Technician Relationship Specialty Start Date End Date Doreen Le PA-C [address] [place] [address] PCP - General Family Practice 11/26/16 No, Referral Referring 01/31/19 [place] [address] [place], [place] 9295948 [phone] Primary Staff Physician Cardiology 07/15/21 Safety Technician Relationship Specialty Start Date End Date Doreen Le PA-C [address] [place] [address] PCP - General Family Practice 11/26/16 No, Referral Referring 01/31/19 [place] [address] [place] [address] Primary Staff Physician Cardiology 07/15/21 Safety Technician Relationship Specialty Start Date End Date Doreen Le PA-C [address] [place] [address] PCP - General Family Practice 11/26/16 No, Referral Referring 01/31/19 [place] [address] [place] [address] Primary Staff Physician Cardiology 07/15/21 Safety Technician Relationship Specialty Start Date End Date Doreen Le PA-C [address] [place] [address] PCP - General Family Practice 11/26/16 No, Referral Referring 01/31/19 [place] [address] [address] [place], [place] 2740326 Primary Staff Physician Cardiology 07/15/21 Safety Technician Relationship Specialty Start Date End Date Doreen Le PA-C [address] [place], [place] 501851 PCP - General Family Practice 11/26/16 No, Referral Referring 01/31/19 [place] [address] [address] [place], [place] 0882926 Primary Staff Physician Cardiology 07/15/21 Safety Technician Relationship Specialty Start Date End Date Doreen Le PA-C [address] [place] [address] PCP - General Family Practice 11/26/16 No, Referral Referring 01/31/19 [place] [address] [address] [place], [place] 3584526 Primary Staff Physician Cardiology 07/15/21 Safety Technician Relationship Specialty Start Date End Date Doreen Le PA-C [address] [place] [address] PCP - General Family Practice 11/26/16 No, Referral Referring 01/31/19 [place] [address] [address] [place], [place] 8687704 [phone] Primary Staff Physician Cardiology 07/15/21 Safety Technician Relationship Specialty Start Date End Date Doreen Le PA-C [address] [place] [address] PCP - General Family Practice 11/26/16 No, Referral Referring 01/31/19 [place] [address] [address] [place], [place] 3826426 Primary Staff Physician Cardiology 07/15/21 Safety Technician Relationship Specialty Start Date End Date Doreen Le PA-C [address] [place] [address] PCP - General Family Practice 11/26/16 No, Referral Referring 01/31/19 [place] [address] [address] [place], [place] 7656226 Primary Staff Physician Cardiology 07/15/21 Safety Technician Relationship Specialty Start Date End Date Doreen Le PA-C [address] [place], [place] 055791 PCP - General Family Practice 11/26/16 No, Referral Referring 01/31/19 [place] [address] [facility] [place] [place] 2694526 Primary Staff Physician Cardiology 07/15/21 Sheridan Cervantes, flying i instructor Sheet Metal Insulator 02/25/22 03/27/22 Safety Technician Relationship Specialty Start Date End Date Doreen Le PA-C [address] [place], [place] 83831691 PCP - General Family Practice 11/26/16 No, Referral Referring 01/31/19 [place] [address] [facility] [place] [place] 2276426 Primary Staff Physician Cardiology 07/15/21 Sheridan Cervantes, flying i instructor Sheet Metal Insulator 02/25/22 03/27/22 Carla Burdick MD [address] [facility] [place] [place] [id number] Cardiology 03/03/22 03/03/22 Carla Burdick MD [address] [place] [address] Primary Staff Physician Cardiology 03/03/22 Safety Technician Relationship Specialty Start Date End Date Doreen Le PA-C [address] [place] [address] PCP - General Family Practice 11/26/16 No, Referral Referring 01/31/19 [place] [address] [facility] [place], [place] [id number] Primary Staff Physician Cardiology 07/15/21 Sheridan Cervantes, flying i instructor Sheet Metal Insulator 02/25/22 03/27/22 Carla Burdick MD [address] [place] [address] Cardiology 03/03/22 03/03/22 Carla Burdick MD [address] [place] [address] Primary Staff Physician Cardiology 03/03/22 Safety Technician Relationship Specialty Start Date End Date Doreen Le PA-C [address] [place] [address] PCP - General Family Practice 11/26/16 No, Referral Referring 01/31/19 [place] [address] [address] [place], [place] 1842926 Primary Staff Physician Cardiology 07/15/21 Sheridan Cervantes, flying i instructor Sheet Metal Insulator 02/25/22 03/27/22 Carla Burdick MD [address] [facility] [place] [address] Primary Staff Physician Cardiology 03/03/22 Safety Technician Relationship Specialty Start Date End Date Doreen Le PA-C [address] [place] [address] PCP - General Family Practice 11/26/16 No, Referral Referring 01/31/19 [place] [address] [address] [place], [place] 3133726 Primary Staff Physician Cardiology 07/15/21 Sheridan Cervantes RN Primary Care Sheet Metal Insulator 02/25/22 03/27/22 Carla Burdick MD [address] [place], [place] 484821 Primary Staff Physician Cardiology 03/03/22 Safety Technician Relationship Specialty Start Date End Date Doreen Le PA-C [address] [place] [address] PCP - General Family Practice 11/26/16 No, Referral Referring 01/31/19 [place] [address] [address] [place], [place] 8674426 Primary Staff Physician Cardiology 07/15/21 Sheridan Cervantes RN Primary Care Sheet Metal Insulator 02/25/22 03/27/22 Carla Burdick MD [address] [place] [address] Primary Staff Physician Cardiology 03/03/22 Safety Technician Relationship Specialty Start Date End Date Doreen Le PA-C [address] [place] [address] PCP - General Family Practice 11/26/16 No, Referral Referring 01/31/19 [place] [address] [place], [place] 0186850 [phone] Primary Staff Physician Cardiology 07/15/21 Carla Burdick MD [address] [place] [address] Primary Staff Physician Cardiology 03/03/22 Safety Technician Relationship Specialty Start Date End Date Doreen eL PA-C [address] [place] [address] PCP - General Family Practice 11/26/16 No, Referral Referring 01/31/19 [place] [address] [place] [address] Primary Staff Physician Cardiology 07/15/21 Carla Burdick MD [address] [place] [address] Primary Staff Physician Cardiology 03/03/22 Safety Technician Relationship Specialty Start Date End Date Doreen Le PA-C [address] [place] [address] PCP - General Family Medicine 11/26/16 No, Referral Referring 01/31/19 [place] [address] [facility] [place] [address] Primary Staff Physician Cardiology 07/15/21 Carla Burdick MD [address] [place] [address] Primary Staff Physician Cardiology 03/03/22 Safety Technician Relationship Specialty Start Date End Date Doreen Le PA-C [address] [place] [address] PCP - General Family Medicine 11/26/16 No, Referral Referring 01/31/19 [place] [address] [place] [address] Primary Staff Physician Cardiology 07/15/21 Carla Burdick MD [address] [facility] [address] Primary Staff Physician Cardiology 03/03/22 Safety Technician Relationship Specialty Start Date End Date Doreen Le PA-C [address] [facility] [place] [address] PCP - General Family Medicine 11/26/16 No, Referral Referring 01/31/19 [place] [address] [place] [address] Primary Staff Physician Cardiology 07/15/21 Carla Burdikc MD [address] [place] [address] Primary Staff Physician Cardiology 03/03/22 Safety Technician Relationship Specialty Start Date End Date Doreen Le PA-C [address] [facility] [place] [address] PCP - General Family Medicine 11/26/16 No, Referral Referring 01/31/19 [place] [address] [place] [address] Primary Staff Physician Cardiology 07/15/21 Carla Burdick MD [address] [place] [address] Cardiology 03/03/22 03/03/22 Carla Burdick MD [address] [place] [facility] [place] [address] Primary Staff Physician Cardiology 03/03/22 Safety Technician Relationship Specialty Start Date End Date Doreen Le PA-C [address] [facility] [place] [address] PCP - General Family Medicine 11/26/16 No, Referral Referring 01/31/19 [place] [address] [place] [address] Primary Staff Physician Cardiology 07/15/21 Carla Burdick MD [address] [place] [address] Primary Staff Physician Cardiology 03/03/22 Safety Technician Relationship Specialty Start Date End Date Doreen Le PA-C [address] [facility] [place] [address] PCP - General Family Medicine 11/26/16 No, Referral Referring 01/31/19 [place] [address] [place] [address] Primary Staff Physician Cardiology 07/15/21 Carla Burdick MD [address] [place] [address] Primary Staff Physician Cardiology 03/03/22 Safety Technician Relationship Specialty Start Date End Date Doreen Le PA-C [address] [facility] [place] [address] PCP - General Family Medicine 11/26/16 No, Referral Referring 01/31/19 [place] [address] [place] [address] Primary Staff Physician Cardiology 07/15/21 Carla Burdick MD [address] [facility] [place] [address] Primary Staff Physician Cardiology 03/03/22 Safety Technician Relationship Specialty Start Date End Date Doreen Le PA-C [address] [facility] [place] [address] PCP - General Family Medicine 11/26/16 No, Referral Referring 01/31/19 [place] [address] [place] [address] Primary Staff Physician Cardiology 07/15/21 Carla Burdick MD [address] [place] [facility] [place] [address] Primary Staff Physician Cardiology 03/03/22 Safety Technician Relationship Specialty Start Date End Date Doreen Le PA-C [address] [facility] [place] [address] PCP - General Family Medicine 11/26/16 No, Referral Referring 01/31/19 [place] [address] [place] [address] Primary Staff Physician Cardiology 07/15/21 Carla Burdick MD [address] [place] [facility] [place] [address] Primary Staff Physician Cardiology 03/03/22 Safety Technician Relationship Specialty Start Date End Date Doreen Le PA-C [address] [facility] [place] [address] PCP - General Family Medicine 11/26/16 No, Referral Referring 01/31/19 [place] [address] [place] [address] Primary Staff Physician Cardiology 07/15/21 Carla Burdick MD [address] [place] [facility] [place] [address] Primary Staff Physician Cardiology 03/03/22 Sonny Lund MD [address] [facility] [place] [address] Hematology/Oncology 04/22/22 Safety Technician Relationship Specialty Start Date End Date Doreen Le PA-C [address] [facility] [place] [address] PCP - General Family Medicine 11/26/16 No, Referral Referring 01/31/19 [place] [address] [place] [address] Primary Staff Physician Cardiology 07/15/21 Calra Burdick MD [address] [facility] [place] [address] Primary Staff Physician Cardiology 03/03/22 Sonny Lund MD [address] [facility] [place] [address] Hematology/Oncology 04/22/22 Safety Technician Relationship Specialty Start Date End Date Doreen Le PA-C [address] [facility] [place] [address] PCP - General Family Medicine 11/26/16 No, Referral Referring 01/31/19 [place] [address] [place] [address] Primary Staff Physician Cardiology 07/15/21 Carla Burdick MD [address] [place] [facility] [place] [address] Primary Staff Physician Cardiology 03/03/22 Sonny Lund MD [address] [facility] [place] [address] Hematology/Oncology 04/22/22 Safety Technician Relationship Specialty Start Date End Date Doreen Le PA-C [address] [facility] [place] [address] PCP - General Family Medicine 11/26/16 No, Referral Referring 01/31/19 [place] [address] [place], [place] 1268500 [phone] Primary Staff Physician Cardiology 07/15/21 Carla Burdick MD [address] [facility] [place] [address] Primary Staff Physician Cardiology 03/03/22 Sonny Lund MD [address] [facility] [place] [address] Hematology/Oncology 04/22/22 Safety Technician Relationship Specialty Start Date End Date Doreen Le PACarolineC [address] [place] [address] PCP - General Family Medicine 11/26/16 No, Referral Referring 01/31/19 [place] [address] [place] [address] Primary Staff Physician Cardiology 07/15/21 Carla Burdick MD [address] [place] [facility] [place] [address] Primary Staff Physician Cardiology 03/03/22 Sonny Lund MD [address] [facility] [place] [address] Hematology/Oncology 04/22/22 Safety Technician Relationship Specialty Start Date End Date Doreen Le PA-C [address] [place] [address] PCP - General Family Medicine 11/26/16 No, Referral Referring 01/31/19 [place] [address] [place] [address] Primary Staff Physician Cardiology 07/15/21 Carla Burdick MD [address] [place] [facility] [address] Primary Staff Physician Cardiology 03/03/22 Sonny Lund MD [address] [facility] [place] [address] Hematology/Oncology 04/22/22 Safety Technician Relationship Specialty Start Date End Date Doreen Le PA-C [address] [facility] [place] [address] PCP - General Family Medicine 11/26/16 No, Referral Referring 01/31/19 [place] [address] [place] [address] Primary Staff Physician Cardiology 07/15/21 Carla Burdick MD [address] [facility] [address] Primary Staff Physician Cardiology 03/03/22 Sonny Lund MD [address] [facility] [place] [address] Hematology/Oncology 04/22/22 Safety Technician Relationship Specialty Start Date End Date Doreen Le PA-C [address] [facility] [place] [address] PCP - General Family Medicine 11/26/16 No, Referral Referring 01/31/19 [place] [address] [place] [address] Primary Staff Physician Cardiology 07/15/21 Carla Burdick MD [address] [facility] [address] Primary Staff Physician Cardiology 03/03/22 Sonny Lund MD [address] [facility] [address] Hematology/Oncology 04/22/22 Safety Technician Relationship Specialty Start Date End Date Doreen Le PA-C [address] [facility] [place] [address] PCP - General Family Medicine 11/26/16 No, Referral Referring 01/31/19 [place] [address] [address] [place], [place] 2300125 [phone] Primary Staff Physician Cardiology 07/15/21 Carla Burdick MD [address] [facility] [place] [address] Primary Staff Physician Cardiology 03/03/22 Sonny Lund MD [address] [facility] [place] [address] Hematology/Oncology 04/22/22 Safety Technician Relationship Specialty Start Date End Date Doreen Le PA-C [address] [facility] [place] [address] PCP - General Family Medicine 11/26/16 No, Referral Referring 01/31/19 [place] [address] [address] [place], [place] 2147233 [phone] Primary Staff Physician Cardiology 07/15/21 Carla Burdick MD [address] [facility] [place] [address] Primary Staff Physician Cardiology 03/03/22 Sonny Lund MD [address] [facility] [place] [address] Hematology/Oncology 04/22/22 Safety Technician Relationship Specialty Start Date End Date Doreen Le PA-C [address] [facility] [place] [address] PCP - General Family Medicine 11/26/16 No, Referral Referring 01/31/19 [place] [address] [facility] [place] [address] Primary Staff Physician Cardiology 07/15/21 Carla Burdick MD [address] [facility] [address] Primary Staff Physician Cardiology 03/03/22 Sonny Lund MD [address] [facility] [place] [address] Hematology/Oncology 04/22/22 Safety Technician Relationship Specialty Start Date End Date Doreen Le PA-C [address] [facility] [place] [address] PCP - General Family Medicine 11/26/16 No, Referral Referring 01/31/19 [place] [address] [facility] [place] [address] Primary Staff Physician Cardiology 07/15/21 Carla Burdick MD [address] [facility] [place] [address] Primary Staff Physician Cardiology 03/03/22 Sonny Lund MD [address] [facility] [place] [address] Hematology/Oncology 04/22/22 Safety Technician Relationship Specialty Start Date End Date Doreen Le PASammy [address] [facility] [place] [address] PCP - General Family Medicine 11/26/16 No, Referral Referring 01/31/19 [place] [address] [place] [address] Primary Staff Physician Cardiology 07/15/21 Carla Burdick MD [address] [facility] [place] [address] Primary Staff Physician Cardiology 03/03/22 Sonny Lund MD [address] [facility] [place] [address] Hematology/Oncology 04/22/22 Safety Technician Relationship Specialty Start Date End Date Doreen Le PA-C [address] [place] [address] PCP - General Family Medicine 11/26/16 No, Referral Referring 01/31/19 [place] [address] [place], [place] 1628026 Primary Staff Physician Cardiology 07/15/21 Carla Burdick MD [address] [place] [address] Primary Staff Physician Cardiology 03/03/22 Sonny Lund MD [address] [place] [address] Hematology/Oncology 04/22/22 Safety Technician Relationship Specialty Start Date End Date Doreen Le PA-C [address] [place] [address] PCP - General Family Medicine 11/26/16 No, Referral Referring 01/31/19 [place] [address] [facility] [place] 0193026 Primary Staff Physician Cardiology 07/15/21 Carla Burdick MD [address] [place] [address] Primary Staff Physician Cardiology 03/03/22 Sonny Lund MD [address] [place] [address] Hematology/Oncology 04/22/22 Safety Technician Relationship Specialty Start Date End Date Doreen Le PA-C [address] [place], [place] 641071 PCP - General Family Medicine 11/26/16 No, Referral Referring 01/31/19 [place] [address] [place] [address] Primary Staff Physician Cardiology 07/15/21 Carla Burdick MD [address] [place], [place] 763701 Primary Staff Physician Cardiology 03/03/22 Sonny Lund MD [address] [place] [place], [place] 813201 Hematology/Oncology 04/22/22 Safety Technician Relationship Specialty Start Date End Date Doreen Le PA-C [address] [place], [place] 220311 PCP - General Family Medicine 11/26/16 No, Referral Referring 01/31/19 [place] [address] [place], [place] 1723826 Primary Staff Physician Cardiology 07/15/21 Carla Burdick MD [address] [place] [address] Primary Staff Physician Cardiology 03/03/22 Sonny Lund MD [address] [place] [address] Hematology/Oncology 04/22/22 Safety Technician Relationship Specialty Start Date End Date Doreen Le PA-C [address] [place], [place] 753901 PCP - General Family Medicine 11/26/16 No, Referral Referring 01/31/19 [place] [address] [place], [place] 2514126 Primary Staff Physician Cardiology 07/15/21 Carla Burdick MD [address] [place], [place] 449771 Primary Staff Physician Cardiology 03/03/22 Sonny Lund MD [address] [place], [place] 105221 Hematology/Oncology 04/22/22 Safety Technician Relationship Specialty Start Date End Date Doreen Le PA-C [address] [place], [place] 858611 PCP - General Family Medicine 11/26/16 No, Referral Referring 01/31/19 [place] [address] [place], [place] 9883626 Primary Staff Physician Cardiology 07/15/21 Carla Burdick MD [address] [facility] [place], [place] 884[address] Primary Staff Physician Cardiology 03/03/22 Sonny Lund MD [address] [place] [address] Hematology/Oncology 04/22/22 Safety Technician Relationship Specialty Start Date End Date Doreen Le PA-C [address] [place] [address] PCP - General Family Medicine 11/26/16 No, Referral Referring 01/31/19 [place] [address] [place] [address] Primary Staff Physician Cardiology 07/15/21 Carla Burdick MD [address] [place], [place] 479031 Primary Staff Physician Cardiology 03/03/22 Sonny Lund MD [address] [place] [address] Hematology/Oncology 04/22/22 Safety Technician Relationship Specialty Start Date End Date Doreen Le PA-C [address] [place], [place] 170421 PCP - General Family Medicine 11/26/16 No, Referral Referring 01/31/19 [place] [address] [place], [place] 6340626 Primary Staff Physician Cardiology 07/15/21 Carla Burdick MD [address] [place], [place] 969711 Primary Staff Physician Cardiology 03/03/22 Sonny Lund MD [address] [place] [address] Hematology/Oncology 04/22/22 Safety Technician Relationship Specialty Start Date End Date Doreen Le PA-C [address] [place] [address] PCP - General Family Medicine 11/26/16 No, Referral Referring 01/31/19 [place] [address] [address] [place], [place] 7090726 Primary Staff Physician Cardiology 07/15/21 Carla Burdick MD [address] [place], [place] 620411 Primary Staff Physician Cardiology 03/03/22 Sonny Lund MD [address] [place] [address] Hematology/Oncology 04/22/22 Safety Technician Relationship Specialty Start Date End Date Doreen Le PA-C [address] [place], [place] 058191 PCP - General Family Medicine 11/26/16 No, Referral Referring 01/31/19 [place] [address] [place], [place] 8412626 Primary Staff Physician Cardiology 07/15/21 Carla Burdick MD [address] [place], [place] 493971 Primary Staff Physician Cardiology 03/03/22 Sonny Lund MD [address] [place] [address] Hematology/Oncology 04/22/22 Safety Technician Relationship Specialty Start Date End Date Doreen Le PA-C [address] [place] [address] PCP - General Family Medicine 11/26/16 No, Referral Referring 01/31/19 [place] [address] [place], [place] 0248426 Primary Staff Physician Cardiology 07/15/21 Carla Burdick MD [address] [place], [place] 507821 Primary Staff Physician Cardiology 03/03/22 Sonny Lund MD [address] [place] [address] Hematology/Oncology 04/22/22 Safety Technician Relationship Specialty Start Date End Date Doreen Le PA-C [address] [place] [address] PCP - General Family Medicine 11/26/16 No, Referral Referring 01/31/19 [place] [address] [facility] [place] [id number] Primary Staff Physician Cardiology 07/15/21 Carla Burdick MD [address] [place] [address] Primary Staff Physician Cardiology 03/03/22 Sonny Lund MD [address] [place] [address] Hematology/Oncology 04/22/22 Safety Technician Relationship Specialty Start Date End Date Doreen Le PA-C [address] [place] [address] PCP - General Family Medicine 11/26/16 No, Referral Referring 01/31/19 [place] [address] [facility] [place], [place] [id number] Primary Staff Physician Cardiology 07/15/21 Carla Burdick MD [address] [place] [address] Primary Staff Physician Cardiology 03/03/22 Sonny Lund MD [address] [place] [address] Hematology/Oncology 04/22/22 Safety Technician Relationship Specialty Start Date End Date Doreen Le PA-C [address] [place] [address] PCP - General Family Medicine 11/26/16 No, Referral Referring 01/31/19 [place] [address] [place], [place] [id number] Primary Staff Physician Cardiology 07/15/21 Carla Burdick MD [address] [place] [address] Primary Staff Physician Cardiology 03/03/22 Sonny Lund MD [address] [place] [address] Hematology/Oncology 04/22/22 Safety Technician Relationship Specialty Start Date End Date Doreen Le PA-C [address] [place] [address] PCP - General Family Medicine 11/26/16 No, Referral Referring 01/31/19 [place] [address] [place], [place] 7190026 Primary Staff Physician Cardiology 07/15/21 Carla Burdick MD [address] [place], [place] 308711 Primary Staff Physician Cardiology 03/03/22 Sonny Lund MD [address] [place] [address] Hematology/Oncology 04/22/22 Safety Technician Relationship Specialty Start Date End Date Doreen Le PA-C [address] [place] [address] PCP - General Family Medicine 11/26/16 No, Referral Referring 01/31/19 [place] [address] [place], [place] 9483026 Primary Staff Physician Cardiology 07/15/21 Carla Burdick MD [address] [place] [address] Primary Staff Physician Cardiology 03/03/22 Sonny Lund MD [address] [place] [address] Hematology/Oncology 04/22/22 Safety Technician Relationship Specialty Start Date End Date Doreen Le PA-C [address] [place] [address] PCP - General Family Medicine 11/26/16 No, Referral Referring 01/31/19 [place] [address] [facility] [place] [id number] Primary Staff Physician Cardiology 07/15/21 Carla Burdick MD [address] [place], [place] 283651 Primary Staff Physician Cardiology 03/03/22 Sonny Lund MD [address] [place] [address] Hematology/Oncology 04/22/22 Safety Technician Relationship Specialty Start Date End Date Doreen Le PA-C [address] [place] [address] PCP - General Family Medicine 11/26/16 No, Referral Referring 01/31/19 [place] [address] [place], [place] [id number] Primary Staff Physician Cardiology 07/15/21 Carla Burdick MD [address] [place] [address] Primary Staff Physician Cardiology 03/03/22 Sonny Lund MD [address] [place] [address] Hematology/Oncology 04/22/22 Safety Technician Relationship Specialty Start Date End Date Doreen Le PA-C [address] [place] [address] PCP - General Family Medicine 11/26/16 No, Referral Referring 01/31/19 [place] [address] [place], [place] [id number] Primary Staff Physician Cardiology 07/15/21 Carla Burdick MD [address] [facility] [place] [address] Primary Staff Physician Cardiology 03/03/22 Sonny Lund MD [address] [place] [address] Hematology/Oncology 04/22/22 Safety Technician Relationship Specialty Start Date End Date Doreen Le PA-C [address] [place] [address] PCP - General Family Medicine 11/26/16 No, Referral Referring 01/31/19 [place] [address] [place], [place] 9336326 Primary Staff Physician Cardiology 07/15/21 Carla Burdick MD [address] [place] [address] Primary Staff Physician Cardiology 03/03/22 Sonny Lund MD [address] [facility] [place] [address] Hematology/Oncology 04/22/22 Safety Technician Relationship Specialty Start Date End Date Doreen Le PA-C [address] [place] [address] PCP - General Family Medicine 11/26/16 No, Referral Referring 01/31/19 [place] [address] [place], [place] 1623726 Primary Staff Physician Cardiology 07/15/21 Carla Burdick MD [address] [place] [address] Primary Staff Physician Cardiology 03/03/22 Sonny Lund MD [address] [place] [address] Hematology/Oncology 04/22/22 Safety Technician Relationship Specialty Start Date End Date Doreen Le PA-C [address] [place] [address] PCP - General Family Medicine 11/26/16 No, Referral Referring 01/31/19 [place] [address] [place], [place] 9470526 Primary Staff Physician Cardiology 07/15/21 Carla Burdick MD [address] [place] [address] Primary Staff Physician Cardiology 03/03/22 Sonny Lund MD [address] [facility] [place] [address] Hematology/Oncology 04/22/22 Safety Technician Relationship Specialty Start Date End Date Doreen Le PA-C [address] [place] [address] PCP - General Family Medicine 11/26/16 No, Referral Referring 01/31/19 [place] [address] [place], [place] 0683326 Primary Staff Physician Cardiology 07/15/21 Carla Burdick MD [address] [place] [address] Primary Staff Physician Cardiology 03/03/22 Sonny Lund MD [address] [place] [address] Hematology/Oncology 04/22/22 Safety Technician Relationship Specialty Start Date End Date Doreen Le PA-C [address] [place] [address] PCP - General Family Medicine 11/26/16 No, Referral Referring 01/31/19 [place] [address] [place], [place] 0329826 Primary Staff Physician Cardiology 07/15/21 Carla Burdick MD [address] [place] [address] Primary Staff Physician Cardiology 03/03/22 Sonny Lund MD [address] [place] [address] Hematology/Oncology 04/22/22 Safety Technician Relationship Specialty Start Date End Date Doreen Le PA-C [address] [place] [address] PCP - General Family Medicine 11/26/16 No, Referral Referring 01/31/19 [place] [address] [address] [place], [place] 6674326 Primary Staff Physician Cardiology 07/15/21 Carla Burdick MD [address] [place], [place] 961841 Primary Staff Physician Cardiology 03/03/22 Sonny Lund MD [address] [place] [address] Hematology/Oncology 04/22/22 Safety Technician Relationship Specialty Start Date End Date Doreen Le PA-C [address] [place] [address] PCP - General Family Medicine 11/26/16 No, Referral Referring 01/31/19 [place] [address] [address], [place] 4607626 Primary Staff Physician Cardiology 07/15/21 Carla Burdick MD [address] [place], [place] 985251 Primary Staff Physician Cardiology 03/03/22 Sonny Lund MD [address] [place] [address] Hematology/Oncology 04/22/22 Safety Technician Relationship Specialty Start Date End Date Doreen Le PA-C [address] [place] [address] PCP - General Family Medicine 11/26/16 No, Referral Referring 01/31/19 [place] [address] [place], [place] 6973126 Primary Staff Physician Cardiology 07/15/21 Carla Burdick MD [address] [place], [place] 745671 Primary Staff Physician Cardiology 03/03/22 Sonny Lund MD [address] [place] [address] Hematology/Oncology 04/22/22 Safety Technician Relationship Specialty Start Date End Date Doreen Le PA-C [address] [place] [address] PCP - General Family Medicine 11/26/16 No, Referral Referring 01/31/19 [place] [address] [place], [place] 5017626 Primary Staff Physician Cardiology 07/15/21 Carla Burdick MD [address] [place], [place] 054211 Primary Staff Physician Cardiology 03/03/22 Sonny Lund MD [address] [facility] [place] [address] Hematology/Oncology 04/22/22 Safety Technician Relationship Specialty Start Date End Date Doreen Le PA-C [address] [place] [address] PCP - General Family Medicine 11/26/16 No, Referral Referring 01/31/19 [place] [address] [place] [address] Primary Staff Physician Cardiology 07/15/21 Carla Burdick MD [address] [place] [address] Primary Staff Physician Cardiology 03/03/22 Sonny Lund MD [address] [place] [address] Hematology/Oncology 04/22/22 Safety Technician Relationship Specialty Start Date End Date Doreen Le PA-C [address] [place] [address] PCP - General Family Medicine 11/26/16 No, Referral Referring 01/31/19 [place] [address] [place] [address] Primary Staff Physician Cardiology 07/15/21 Carla Burdick MD [address] [place] [address] Primary Staff Physician Cardiology 03/03/22 Sonny Lund MD [address] [place] [address] Hematology/Oncology 04/22/22 Safety Technician Relationship Specialty Start Date End Date Doreen Le PA-C [address] [place] [address] PCP - General Family Medicine 11/26/16 No, Referral Referring 01/31/19 [place] [address] [place], [place] 3755026 Primary Staff Physician Cardiology 07/15/21 Carla Burdick MD [address] [place] [address] Primary Staff Physician Cardiology 03/03/22 Sonny Lund MD [address] [place] [address] Hematology/Oncology 04/22/22 Safety Technician Relationship Specialty Start Date End Date Doreen Le PA-C [address] [place] [address] PCP - General Family Medicine 11/26/16 No, Referral Referring 01/31/19 [place] [address] [place], [place] 6132426 Primary Staff Physician Cardiology 07/15/21 Safety Technician Relationship Specialty Start Date End Date Doreen Le PA-C [address] [place], [place] 854021 PCP - General Family Medicine 11/26/16 No, Referral Referring 01/31/[place] [address] [address], [place] 7033726 Primary Staff Physician Cardiology 07/15/21 Carla Burdick MD [address] [place] [address] Primary Staff Physician Cardiology 03/03/22 Sonny Lund MD [address] [place] [address] Hematology/Oncology 04/22/22 Safety Technician Relationship Specialty Start Date End Date Dianne Le PA-C PCP - General Family Medicine 11/26/16 No, Referral Referring 01/31/19 [place] [address] [place] [address] Primary Staff Physician Cardiology 07/15/21 Carla Burdick MD [address] [place] [address] Primary Staff Physician Cardiology 03/03/22 Sonny Lund MD [address] [place] [address] Hematology/Oncology 04/22/22 Deysi Collazo APRN.KNIT GOODS MENDER [address] [facility] [place] [address] Energy Management Specialist Family Medicine 06/09/24 Sandra Bell APRN.KNIT GOODS MENDER [address] [place] [address] Energy Management Specialist Family Medicine 06/09/24 Safety Technician Relationship Specialty Start Date End Date No, Referral Referring 01/31/[place] [address] [facility] [place] 4211726 Primary Staff Physician Cardiology 07/15/21 Carla Burdick MD [address] [place], [place] 8[address] Primary Staff Physician Cardiology 03/03/22 Sonny Lund MD [address] [place], [place] 245171 Hematology/Oncology 04/22/22 Deysi Collazo, CLARITY DEVELOPER.KNIT GOODS MENDER [address] [place], [place] 753981 Energy Management Specialist Family Medicine 06/09/24 Sandra Bell, CLARITY DEVELOPER.KNIT GOODS MENDER [address] [place], [place] 352351 Energy Management Specialist Family Medicine 06/09/24 Safety Technician Relationship Specialty Start Date End Date Deysi Collazo, CLARITY DEVELOPER.KNIT GOODS MENDER [address] [place], [place] 567831 PCP - General Family Medicine 07/07/24 No, Referral Referring 01/31/19 [place] [address] [place] [address] Primary Staff Physician Cardiology 07/15/21 Carla Burdick MD [address] [place] [address] Primary Staff Physician Cardiology 03/03/22 Sonny Lund MD [address] [facility] [place] [address] Hematology/Oncology 04/22/22 Deysi Collazo APRN.KNIT GOODS MENDER [address] [place] [address] Energy Management Specialist Family Medicine 06/09/24 Sandra Bell APRN.KNIT GOODS MENDER [address] [place] [address] [facility] 06/09/24 Safety Technician Relationship Specialty Start Date End Date Deysi Collazo APRN.KNIT GOODS MENDER [address] [place] [address] PCP - General Family Medicine 07/07/24 No, Referral Referring 01/31/19 [place] [address] [place] [address] Primary Staff Physician Cardiology 07/15/21 Carla Burdick MD [address] [facility] [place] [address] Primary Staff Physician Cardiology 03/03/22 Sonny Lund MD [address] [place] [address] Hematology/Oncology 04/22/22 Deysi Collazo APRN.KNIT GOODS MENDER [address] [place] [address] [facility] 06/09/24 Sandra Bell APRN.KNIT GOODS MENDER [address] [place] [address] Energy Management Specialist [facility] 06/09/24 Safety Technician Relationship Specialty Start Date End Date Deysi Collazo APRN.KNIT GOODS MENDER [address] [place] [address] PCP - General Family Medicine 07/07/24 No, Referral Referring 01/31/[place] [address] [facility] [place] 6992326 Primary Staff Physician Cardiology 07/15/21 Carla Burdick MD [address] [place] [address] Primary Staff Physician Cardiology 03/03/22 Sonny Lund MD [address] [place] [address] Hematology/Oncology 04/22/22 Deysi Collazo APRN.KNIT GOODS MENDER [address] [place] [address] [facility] 06/09/24 Sandra Bell CLARITY DEVELOPER.KNIT GOODS MENDER [address] [place] [address] [facility] 06/09/24 Safety Technician Relationship Specialty Start Date End Date Deysi Collazo APRN.KNIT GOODS MENDER [address] [place] [address] PCP - General Family Medicine 07/07/24 No, Referral Referring 01/31/19 [place] [address] [place] [address] Primary Staff Physician Cardiology 07/15/21 Carla Burdick MD [address] [place] [address] Primary Staff Physician Cardiology 03/03/22 Sonny Lund MD [address] [place] [address] Hematology/Oncology 04/22/22 Deysi Collazo APRN.KNIT GOODS MENDER [address] [place], [place] 297201 Energy Management Specialist [facility] 06/09/24 Sandra Bell APRN.KNIT GOODS MENDER [address] [place], [place] 395511 [facility] Safety Technician Relationship Specialty Start Date End Date Deysi Collazo APRN.KNIT GOODS MENDER [address] [place], [place] 409241 PCP - General Family Medicine 07/07/24 No, Referral Referring 01/31/19 [place] [address] [place] [address] Primary Staff Physician Cardiology 07/15/21 Carla Burdick MD [address] [place], [place] 565[address] Primary Staff Physician Cardiology 03/03/22 Sonny Lund MD [address] [place] [address] Hematology/Oncology 04/22/22 Deysi Collazo, CLARITY DEVELOPER.KNIT GOODS MENDER [address] [place] [address] Energy Management Specialist [facility] 06/09/24 Sandra Bell CLARITY DEVELOPER.KNIT GOODS MENDER [address] [facility] [place] [address] [facility] 06/09/24 Safety Technician Relationship Specialty Start Date End Date Deysi Collazo CLARITY DEVELOPER.KNIT GOODS MENDER [address] [place] [address] PCP - General Family Medicine 07/07/24 No, Referral Referring 01/31/19 [place] [address] [place], [place] 9134226 Primary Staff Physician Cardiology 07/15/21 Carla Burdick MD [address] [place] [address] Primary Staff Physician Cardiology 03/03/22 Sonny Lund MD [address] [facility] [place] [address] Hematology/Oncology 04/22/22 Deysi Collazo APRN.KNIT GOODS MENDER [address] [place] [address] [facility] 06/09/24 Sandra Bell CLARITY DEVELOPER.KNIT GOODS MENDER [address] [place] [address] [facility] 06/09/24 Safety Technician Relationship Specialty Start Date End Date Deysi Collazo, CLARITY DEVELOPER.KNIT GOODS MENDER [address] [place] [address] PCP - General Family Medicine 07/07/24 No, Referral Referring 01/31/[place] [address] [address] [place], [place] 2884026 Primary Staff Physician Cardiology 07/15/21 Carla Burdick MD [address] [place], [place] 354151 Primary Staff Physician Cardiology 03/03/22 Sonny Lund MD [address] [place], [place] 885781 Hematology/Oncology 04/22/22 Deysi Collazo, CLARITY DEVELOPER.KNIT GOODS MENDER [address] [place] [address] Energy Management Specialist Family Medicine 06/09/24 Sandra Bell, CLARITY DEVELOPER.KNIT GOODS MENDER [address] [place] [address] Energy Management Specialist Family Medicine 06/09/24 Safety Technician Relationship Specialty Start Date End Date Deysi Collazo, CLARITY DEVELOPER.KNIT GOODS MENDER [address] [place] [address] PCP - General Family Medicine 07/07/24 No, Referral Referring 01/31/19 [place] [address] [address], [place] 0338926 Primary Staff Physician Cardiology 07/15/21 Carla Burdick MD [address] [place], [place] 9[address] Primary Staff Physician Cardiology 03/03/22 Sonny Lund MD [address] [place] [address] Hematology/Oncology 04/22/22 Deysi Colalzo APRN.KNIT GOODS MENDER [address] [place] [address] Energy Management Specialist Family Medicine 06/09/24 Sandra Bell APRN.KNIT GOODS MENDER [address] [place] [address] [facility] 06[facility]09/24 Safety Technician Relationship Specialty Start Date End Date Deysi Collazo APRN.KNIT GOODS MENDER [address] [place] [address] PCP - General Family Medicine 07/07/24 No, Referral Referring 01/31/[place] [address] [place], [place] 3011126 Primary Staff Physician Cardiology 07/15/21 Carla Burdick MD [address] [place] [address] Primary Staff Physician Cardiology 03/03/22 Sonny Lund MD [address] [place] [address] Hematology/Oncology 04/22/22 Deysi Collazo CLARITY DEVELOPER.KNIT GOODS MENDER [address] [place] [address] Energy Management Specialist Family Medicine 06/09/24 Sandra Bell CLARITY DEVELOPER.KNIT GOODS MENDER [address] [place] [address] Energy Management Specialist [facility] 06/09/24 Safety Technician Relationship Specialty Start Date End Date Deysi Collazo, CLARITY DEVELOPER.KNIT GOODS MENDER [address] [place] [address] PCP - General Family Medicine 07/07/24 No, Referral Referring 01/31/[place] [address] [address] [place], [place] 6362926 Primary Staff Physician Cardiology 07/15/21 Carla Burdick MD [address] [place] [address] Primary Staff Physician Cardiology 03/03/22 Sonny Lund MD [address] [place] [address] Hematology/Oncology 04/22/22 Deysi Collazo, CLARITY DEVELOPER.KNIT GOODS MENDER [address] [place] [address] [facility] 06/09/24 Sandra Bell CLARITY DEVELOPER.KNIT GOODS MENDER [address] [place] [address] [facility] 06/09/24 Safety Technician Relationship Specialty Start Date End Date Deysi Collazo, CLARITY DEVELOPER.KNIT GOODS MENDER [address] [place] [address] PCP - General Family Medicine 07/07/24 No, Referral Referring 01/31/19 [place] [address] [facility] [place] [address] Primary Staff Physician Cardiology 07/15/21 Carla Burdick MD [address] [place], [place] 017901 Primary Staff Physician Cardiology 03/03/22 Sonny Lund MD [address] [place] [address] Hematology/Oncology 04/22/22 Deysi Collazo, CLARITY DEVELOPER.KNIT GOODS MENDER [address] [place], [place] 810861 Energy Management Specialist [facility] 06/09/24 Sandra Bell, CLARITY DEVELOPER.KNIT GOODS MENDER [address] [place], [place] 96134[address] [facility] 06/09/24 Safety Technician Relationship Specialty Start Date End Date Deysi Collazo, CLARITY DEVELOPER.KNIT GOODS MENDER [address] [place], [place] 935691 PCP - General Family Medicine 07/07/24 No, Referral Referring 01/31/[place] [address] [address] [place], [place] 1466626 Primary Staff Physician Cardiology 07/15/21 Carla Burdick MD [address] [place], [place] 899[address] Primary Staff Physician Cardiology 03/03/22 Deysi Collazo, CLARITY DEVELOPER.KNIT GOODS MENDER [address] [place], [place] 679960 [phone] [facility] 06/09/24 Sandra Bell APRN.KNIT GOODS MENDER [address] [place], [place] 456370 [phone] [facility] 06/09/24 Safety Technician Relationship Specialty Start Date End Date Deysi Collazo, CLARITY DEVELOPER.KNIT GOODS MENDER [address] [place], [place] 237378 [phone] PCP - General Family Medicine 07/07/24 No, Referral Referring 01/31/[place] [address] [place] [address] Primary Staff Physician Cardiology 07/15/21 Carla Burdick MD [address] [place], [place] 410272 [phone] Primary Staff Physician Cardiology 03/03/22 Deysi Collazo, CLARITY DEVELOPER.KNIT GOODS MENDER [address] [place] [address] [facility] Family Medicine 06/09/24 Sandra Bell CLARITY DEVELOPER.KNIT GOODS MENDER [address] [place], [place] 337827 [phone] [facility] 06/09/24 Safety Technician Relationship Specialty Start Date End Date Deysi Collazo, CLARITY DEVELOPER.KNIT GOODS MENDER [address] [place] [address] PCP - General Family Medicine 07/07/24 No, Referral Referring 01/31/[place] [address] [address] [place], [place] 0308526 Primary Staff Physician Cardiology 07/15/21 Carla Burdick MD [address] [place] 337[address] [phone] Primary Staff Physician Cardiology 03/03/22 Deysi Collazo APRN.KNIT GOODS MENDER [address] [place] [address] [facility] 06/09/24 Sandra Bell APRN.KNIT GOODS MENDER [address] [place] [address] [facility] 06/09/24 Safety Technician Relationship Specialty Start Date End Date Deysi Collazo APRN.KNIT GOODS MENDER [address] [place] [address] PCP - General Family Medicine 07/07/24 No, Referral Referring 01/31/19 [place] [address] [place], [place] 9281226 Primary Staff Physician Cardiology 07/15/21 Carla Burdick MD [address] [place], [place] 85[address] [phone] Primary Staff Physician Cardiology 03/03/22 Deysi Collazo APRN.KNIT GOODS MENDER [address] [place] [address] [facility] 06/09/24 Sandra Bell APRN.KNIT GOODS MENDER [address] [place] [address] Energy Management Specialist Family Medicine 06/09/24 Team Status: Active Member Role/Relationship Status Dates Deysi Collazo CHEMICAL RESEARCH TECHNICIAN, CHEMICAL RESEARCH TECHNICIAN-C Primary Care Provider Active Team Status: Active Member Role/Relationship Status Dates Deysi Collazo CHEMICAL RESEARCH TECHNICIAN, CHEMICAL RESEARCH TECHNICIAN-C Primary Care Provider Active Start: January 07, 2025 Dr. Luis Armando Harry MD Emergency Provider Active Sta rt: January 07, 2025 Dr. Radha Heller MD Admit Provider Active Star t: January 07, 2025 Dr. Radha Heller MD Attending Provider Active Start: January 07, 2025 Team Status: Inactive Member Role/Relationship Status Dates Deysi Collazo CHEMICAL RESEARCH TECHNICIAN, CHEMICAL RESEARCH TECHNICIAN-C Primary Care Provider Active Start: January 07, [...] Active Member Role/Relationship Status Dates Deysi Collazo CHEMICAL RESEARCH TECHNICIAN, CHEMICAL RESEARCH TECHNICIAN-C Primary Care Provider Active Start: January 08, 2025 Dr. Abundio Turcios MD Attending Provider Active S tart: January 08, 2025 Team Status: Active Member Role/Relationship Status Dates Deysi Collazo CHEMICAL RESEARCH TECHNICIAN, CHEMICAL RESEARCH TECHNICIAN-C Primary Care Provider Active Start: January 08, 2025 Dr. Yaniv Masters MD Attending Provider Active S tart: January 08, 2025 Team Status: Active Member Role/Relationship Status Dates Deysi Collazo CHEMICAL RESEARCH TECHNICIAN, CHEMICAL RESEARCH TECHNICIAN-C Primary Care Provider Active Start: January 08, [...] Active Member Role/Relationship Status Dates Deysi Collazo CHEMICAL RESEARCH TECHNICIAN, CHEMICAL RESEARCH TECHNICIAN-C Primary Care Provider Active Start: January 09, [...] Active Member Role/Relationship Status Dates Deysi Collazo CHEMICAL RESEARCH TECHNICIAN, CHEMICAL RESEARCH TECHNICIAN-C Primary Care Provider Active Start: January 10, [...] Active Member Role/Relationship Status Dates Deysi Collazo CHEMICAL RESEARCH TECHNICIAN, CHEMICAL RESEARCH TECHNICIAN-C Primary Care Provider Active Start: January 11, [...] January 23, 2025 End: January 23, 2025 Safety Technician Relationship Specialty Start Date End Date Deysi Collazo APRN.KNIT GOODS MENDER [address] [place] [address] PCP - General Family Medicine 07/07/24 No, Referral Referring 01/31/19 [place] [address] [place] [address] Primary Staff Physician Cardiology 07/15/21 Carla Burdick MD [address] [place], [place] 9915[address] Primary Staff Physician Cardiology 03/03/22 Deysi Collazo, CLARITY DEVELOPER.KNIT GOODS MENDER [address] [place], [place] [id number] Energy Management Specialist Family Medicine 06/09/24 Sandra Bell CLARITY DEVELOPER.KNIT GOODS MENDER [address] [place] [address] [facility] 06/09/24 Team Status: Active Member Role/Relationship Status Dates Deysi Collazo CHEMICAL RESEARCH TECHNICIAN, CHEMICAL RESEARCH TECHNICIAN-C Primary Care Provider Active Start: January 08, [...] February 13, 2025 End: February 13, 2025 Safety Technician Relationship Specialty Start Date End Date Deysi Collazo, TERI.KNIT GOODS MENDER [address] [place], [place] [id number] PCP - General Family Medicine 07/07/24 No, Referral Referring 01/31/19 [place] [id number] [place], [place] [id number] Primary Staff Physician Cardiology 07/15/21 Carla Burdick MD [address] [place], [place] [id number] Primary Staff Physician Cardiology 03/03/22 Deysi Collazo, TERI.[employer] MENDER [address] [place], [place] [id number] Energy Management Specialist [facility] 06/09/24 Sandra Bell CLARITY DEVELOPER.[employer] MENDER [address] [place], [place] [id number] Energy Management Specialist [facility] 06/09/24 Team Status: Inactive Member Role/Relationship Status [...] Inactive Member Role/Relationship Status Dates Deysi Collazo NP, CHEMICAL RESEARCH TECHNICIAN-C Primary care physician Active Start: January 07, [...] Active Member Role/Relationship Status Dates Deysi Collazo CHEMICAL RESEARCH TECHNICIAN, CHEMICAL RESEARCH TECHNICIAN-C Primary care physician Active Start: January 08, 2025 Dr. Abundio Turcios MD Attending physician Active Start: January 08, 2025 Dr. Carla Ha DO Referring Provider Active Start: January 08, 2025 Team Status: Active Member Role/Relationship Status Dates Deysi Collazo CHEMICAL RESEARCH TECHNICIAN, CHEMICAL RESEARCH TECHNICIAN-C Primary care physician Active Start: January 08, 2025 Dr. Yaniv Masters MD Attending physician Active Start: January 08, 2025 Team Status: Active Member Role/Relationship Status Dates Deysi Collazo CHEMICAL RESEARCH TECHNICIAN, CHEMICAL RESEARCH TECHNICIAN-C Primary care physician Active Start: January 08, [...] S tart: January 08, 2025 Dr. Panda Heni MD Nurse Practitioner Active Start: January 08, [...] Active Member Role/Relationship Status Dates Deysi Collazo CHEMICAL RESEARCH TECHNICIAN, CHEMICAL RESEARCH TECHNICIAN-C Primary care physician Active Start: January 09, [...] Active Member Role/Relationship Status Dates Deysi Collazo CHEMICAL RESEARCH TECHNICIAN, CHEMICAL RESEARCH TECHNICIAN-C Primary care physician Active Start: January 10, [...] Active Member Role/Relationship Status Dates Deysi Collazo CHEMICAL RESEARCH TECHNICIAN, CHEMICAL RESEARCH TECHNICIAN-C Primary care physician Active Start: January 11, [...] Active Member Role/Relationship Status Dates Deysi Collazo CHEMICAL RESEARCH TECHNICIAN, CHEMICAL RESEARCH TECHNICIAN-C Primary care physician Active Start: January 11, [...] Status: Inactive Member Role/Relationship Status Dates Dr. Vincetn Flores MD Primary care physician Active Start: [...] 2025 End: May 07, 2025 Cookie Bowman NP CHEMICAL RESEARCH TECHNICIAN-C Attending physician Active Start: May 07, 2025 [...] Status: Inactive Member Role/Relationship Status Dates Dr. Vincnet Flores [...] 2025 End: May 07, 2025 Cookie Bowman CHEMICAL RESEARCH TECHNICIAN, CHEMICAL RESEARCH TECHNICIAN-C Attending physician Active Start: May 07, 2025 [...] BE BASED ON THE PRIMARY CLINICAL RECORDS. [facility]. provides no warranty or guarantee of the accuracy or completeness of information in this document.
--- NOTE | 2025-06-17 17:40 | RAD_ITS ---
PROCEDURE: CHEST 1 VIEW 06/17/2025 REASON FOR EXAM: ZACHARY OPERATIVE TECHNIQUE: Frontal view of the chest. COMPARISON: May 25, 2025 FINDINGS: Hardware: Right-sided internal jugular dialysis catheter is in place. The tip is seen over the junction of the superior vena cava and right atrium. Dual lead pacemaker is in place. Heart: Heart size is moderately enlarged. Watchman device is present. The aorta is atherosclerotic. Lungs: Central congestion. Linear atelectasis or scarring left lung base. Bones: The bones are unremarkable. RAD/Chest 1 View IMPRESSION: Cardiac enlargement. Mild congestion. Reading Location: [id number]
[2025-06-17] MEDS: Lactated Ringers 1,000 ML 999 ML IV (17:46)
[2025-06-17 17:53] LABS: Prothrombin Time (Protime)PT. 16.5 SECONDS (11.7-14.9)
[2025-06-17 17:54] LABS: Partial Thromboplast Time 41.8 Seconds (24.1-36.2)
[2025-06-17 17:56] LABS: CPK Total, Creatine Kinase 53 U/L (24-195)
--- NOTE | 2025-06-17 18:03 | ART_ITS ---
Reason For Study Reason For Study: Ulcer Procedure A bilateral lower extremity continuous wave Doppler with analog waveform analysis,segmental pressures,and ankle brachial indexes without exercise. Left Segmental Pressures Left brachial= 106mmHg. Left calf = >254mmHg. Left posterior tibial artery = 70mmHg. Left dorsalis pedis artery = 52mmHg. Left digit = 39 mmHg. Right Segmental Pressures Right calf = 82mmHg. Right posterior tibial artery = 88mmHg. Right dorsalis pedis artery = 64mmHg. Right digit = 29 mmHg. Indices The right ankle brachial index by the posterior tibial artery is 0.83. The right ankle brachial index by the dorsalis pedis is 0.60. The right digital-brachial index is 0.27. The left ankle brachial index by the posterior tibial artery is 0.66. The left ankle brachial index by the dorsalis pedis is 0.49. The left digital-brachial index is 0.37. VL/Lower Ext Art Exam w/o Exercis Interpretation Summary Right GILDA 0.83, moderate arterial insufficiency. Doppler/PVR waveforms of the r ight leg moderately diminished at rest. Left GILDA 0.66, moderate arterial insufficiency. Doppler/PVR waveforms of the le ft leg moderately diminished at rest. Ordering Physician: Imtiaz Melissa Referring Physician: Vincent Flores Chi Performed By: ADA HOU Henrietta
--- NOTE | 2025-06-17 18:04 | SEPSISATNOTE ---
Sepsis Attestation Sepsis Alert: Yes Sepsis Attestation: Agree w/Sepsis Date exam was performed: 06/17/25 Time exam was performed: 18:04 Possible Source of Sepsis: Bone/joint, Skin/soft tissue and Wound Sepsis Organ Dysfunction Criteria Present: Creatinine > 2.0 mg/dL and Lactic Acid > 2 mmol/L Fluid Resuscitation Fluid resuscitation indicated?: Yes Fluid Resuscitation ordered: Lesser volume fluid bolus ordered Amount of fluid ordered: 1,500 Reason for lesser fluid bolus:: Concern for fluid overload, Heart failure and Renal Failure
[2025-06-17 18:11] LABS: Magnesium 1.8 mg/dL (1.5-2.2)
--- OUTSIDE RECORDS SUMMARY | 2025-06-17 18:30 | XMS RPT_ITS | CCD ---
Author Organization [facility] CliniSymd Care Team Providers Care Clinical Services Specialist Name Role Phone Cruz Le Primary Care [...] MD Unavailable Yin Agustin MD Unavailable [phone] Carla Burdick MD Unavailable Doreen Le PA-C [...] Le PA-C Primary Care Provider Unavailable Haagen FACS TEACHER.TWISTHAND, Deysi Unavailable Suppan FACS TEACHER.TWISTHAND, Sandra A Unavailable [phone] Sonny Lund MD Unavailable Haagen FACS TEACHER.TWISTHAND, Deysi Primary Care Provider Sonny uLnd MD Unavailable ALBIN GU Referring Unavailable HAAGEN, [...] Unavailable HAAGEN, DEYSI Primary Care Unavailable Haagen AUTO WHEEL ALIGNMENT SPECIALIST-C, Deysi Primary Care Provider Piero UGARTE, Dr. [...] Unavailable Nolan UGARTE, Dr. Portillo Other Provider [phone] Mo UGARTE, Yamileth Other Provider Unavailable Dr. Josefina Arrieta DO Other Provider Ab UGARTE, Dr. Whitehead Other Provider [phone] Javan UGARTE, Dr. Balderrama Other Provider Matheus UGARTE, Dr. Grimes Other Provider Dr. Marty Hopkins MD Other Provider Scott UGARTE, Dr. Lujan Other Provider Alvaro UGARTE, Dr. Garcia Other Provider [phone] Karyna Gates MD Other Provider Angel Luis [...] Dr. Vincent Cardozo Primary Care Provider [phone] Ha DO, Dr. Malave Referring Provider eJsika Flores MD, Dr. Vincent Cardozo Attending Provider Dr. Juan Diego Huynh MD Attending Provider Wilman CURRY, Dr. Osborne Referring Provider Mark UGARTE, Dr. Vincent Cardozo Referring Provider [phone] Pau Davis Attending Provider Unavailable Bird UGARTE, Dr. Curran Emergency Provider Bharat AUTO WHEEL ALIGNMENT SPECIALIST-C, [facility] Primary Care Provider Piero UGARTE, Dr. Durán [...] Dr. Hamm Other Provider Unavailable Jesus UGARTE, Jsesa Other Provider Unavailable Dr. Dianne Stovall DO Other Provider Zeferino UGARTE, Dr. Luna Attending Provider Zeferino UGARTE, Dr. Luna Referring Provider Dr. Vincent Flores MD, Chi Primary Care Provider [phone] Mark UGARTE, Dr. Vincent Cardozo Attending Provider [...] Hari UGARTE, Dr. Larios Referring Provider Bharat AUTO WHEEL ALIGNMENT SPECIALIST-C, Deysi Primary Care Physician Piero UGARTE, Dr. Durán Emergency Department Physician Arron UGARTE, Dr. Garcia Admitting Physician Arron UGARTE, Dr. Garcia Nurse Practitioner Wilman CURRY, Dr. Osborne Attending Physician Zeferino UGARTE, Dr. Luna Nurse Practitioner Karolina UGARTE, Dr. Mcbride Attending Physician Sonam UGARTE, Dr. Purvis Attending Physician Mirza UGARTE, Teo Nurse Practitioner Unavailable Nolan UGARTE, Dr. Portillo Nurse Practitioner [phone] Mo UGARTE, Yamileth Nurse Practitioner Unavail zacarias Arrieta DO, Dr. Rocha Nurse Practitioner Ab UGARTE, Dr. Whitehead Nurse Practitioner Javan UGARTE, Dr. Balderrama Nurse Practitioner Matheus UGARTE, Dr. Grimes Nurse Practitioner Dr. Marty Hopkins MD Nurse Practitioner [phone] Tai Chavez MD Nurse Practitioner Alvaro UGARTE, Dr. Garcia Nurse Practitioner Karyna Gates MD Nurse Practitioner [phone] Angel Luis UGARTE, Dr. Mosqueda Nurse Practitioner [...] Zeferino UGARTE, Dr. Luna Attending Physician [phone] Mark UGARTE, Dr. Vincent Cardozo Primary Care Physician Mark UGARTE, Dr. Vincent Cardozo Attending Physician Lino UGARTE, Dr. Barcenas Attending Physician Bird UGARTE, Dr. Curran Attending Physician Bird UGARTE, Dr. Curran Emergency Department Physici an Blossom UGARTE, Dr. Bcek Attending Physician Blossom UGARTE, Dr. Beck Nurse Practitioner Hari UGARTE, Dr. Larios Attending Physician Dr. Ric Noriega MD Referring Provider Edda CURRY, Dr. Matthews Emergency Department Physic marito Dr. Byron Bañuelos DO Attending Physician Dr. Ric Noriega MD Referring Provider Bharat AUTO WHEEL ALIGNMENT SPECIALIST-C, [facility] Primary Care Physician Dr. Luis Armando Harry [...] Attending Unavailable Mark, Vincent Chi Attending Unavailable Mrak, Vincent Chi Primary Care Unavailable Mark, Vincent [...] Mark, Vincent Chi Primary Care Unavailable Mark, Vincnet Chi Referring Unavailable Mark, Vincent Chi Attending [...] Unavailable Mark, Vincent Chi Attending Unavailable Mark, Vincnet Chi Referring Unavailable Oleghe, Efewongbe Attending Unavailable [...] Mark, Vincent Chi Primary Care Unavailable Sonam Carson Referring Unavailable Yaniv Masters Attending Unavailable Mark, [...] Unavailable Haagen, Deysi Primary Care Unavailable Sonam, Carson Attending Unavailable Mark, Vincent Chi Primary Care [...] Mark, Vincent Chi Primary Care Unavailable Sonam, Carson Attending Unavailable Sonam, Carson Referring Unavailable Mark, Vincent Chi Primary Care Unavailable Mark, Vincent Chi Attending Unavailable Allergies Allergy Classification Reported Allergen(s) Allergy Type Date of Onset Reaction(s) Facility (2 sources) metFORMIN Drug Allergy 4 [facility] (20 sources) Protamines; Translations: [PROTAMINE] Drug Allergy 2 Anaphylaxis [facility] Work Phone: (20 sources) Propofol; Translations: [PROPOFOL] Drug Allergy 3 Other: See Comments [facility] (1 source) Propofol Drug Allergy 5 [facility] Repository Medications Current Medications Medication Drug Class(es) [...] once daily. Take 2 tablets by mo [facility] once daily. Take 1 tablet by [...] in NaCl (PF) 0.9% 10 mL injection ([employer]) polysaccharide iron complex 150 mg oral capsule [...] Drug Class(es) Dates Sig (Normalized) Sig (Original) [id number] actuat albuterol 0.09 mg/actuat metered dose [...] on above: Take 1 capsule by mo [facility] once daily. clopidogrel 75 mg oral [...] 5 days. Take 2 tablets by mo [facility] once daily. iv contrast (will be [...] on above: Take 1 capsule by mo [facility] once daily. pantoprazole 40 mg delayed [...] on above: Take 2 tablets by mo [facility] once daily for 5 days. 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] Onset: 4 01-18-2019 Episodic Other aftercare (20 sources) 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; Translations: [detention (current) use of antithrombotics/antipl atelets] Onset: 2 03-21-2022 Episodic Other aftercare (20 sources) Acquired platelet function disorder; Translations: [detention (current) use of antithrombotics/antipl atelets] Onset: 2 [...] Visit Reporton Cardiology Visit Report Normal [facility] Absolute lymphocyte countOrd ered By: Vincent Flores on 05-02-2025 Lymphocytes Auto (Unsp spec) [#/Vol] 1.70 10*3/uL 0.83-4.51 [facility] Anion gap in Serum or Plasma Ordered By: Vincent Flores on 05-02-2025 Anion gap [Moles/Vol] 15 mmol/L - [facility] Automated lymphocyte count a s percentage of total leukocytesOrdered By: Vincent Flores on 05-02-2025 Lymphocytes/100 WBC Auto (Unsp spec) 25.9 % - [facility] BUN/creatinine ratioOrdered By: Vincent Flores on 05-02-2025 Urea nitrogen/Creatinine [Mass ratio] 39.5 mg/mg High 10- [facility] Basophil percentageOrdered B y: Vincent Flores on 05-02-2025 Basophils/100 WBC (Bld) 0.6 % 0-1 [facility] Bilirubin, totalOrdered By: Vincent Flores on 05-02-2025 Bilirubin [Mass/Vol] 0.96 mg/dL 0.00-1.30 [facility] CBC W/Diff, Automatedon 04-05 Anisocytosis Ql (Bld) 1+ Normal [facility] Comment on above: Performed By: #### L 501.9509, L500.4050, L100.0100, L506.1001 ####[facility] [address] [place], [place], [id number] Carbon dioxide, total [Moles /volume] in Central venous bloodOrdered By: Vincent Flores on 05-02-2025 CO2 [Moles/Vol] 27.1 mmol/L 21.0-32.0 [facility] Chloride assayOrdered By: Ishmael Flores on 05-02-2025 Chloride [Moles/Vol] 90 mmol/L Low 98-108 [facility] Comprehensive Metabolic Prof ilon 05-02-2025 Albumin [Mass/Vol] 4.0 g/dL Normal 3.4-4.8 [facility] Comment on above: Performed By: #### L 501.9520, L500.4050, L100.0100, L506.1001 ####[facility] [address] [place], [address] Albumin/Globulin [Mass ratio] 1.2 {ratio} Normal 0.9-2.4 [facility] Comment on above: Performed By: #### L 501.9520, L500.4050, L100.0100, L506.1001 ####[facility] [address] [place], [address] ALK PHOS 104 U/L Normal 35-104 [facility] Comment on above: Performed By: #### L 501.9520, L500.4050, L100.0100, L506.1001 ####[facility] [address] [place], [address] ALT [Catalytic activity/Vol] 13 U/L Normal <=34 [facility] Comment on above: Performed By: #### L 501.9520, L500.4050, L100.0100, L506.1001 ####[facility] [address] [place], [address] AST [Catalytic activity/Vol] 31 U/L Normal <=31 [facility] Comment on above: Performed By: #### L 501.9520, L500.4050, L100.0100, L506.1001 ####[facility] [address] [place], [address] Bilirubin [Mass/Vol] 0.96 mg/dL Normal 0.00-1.30 [facility] Comment on above: Performed By: #### L 501.9520, L500.4050, L100.0100, L506.1001 ####[facility] [address] [place], [address] BUN/CRE 39.5 RATIO High 10-20 [facility] Comment on above: Performed By: #### L 501.9520, L500.4050, L100.0100, L506.1001 ####[facility] [address] [place], [address] Calcium [Mass/Vol] 9.6 mg/dL Normal 7.6-11.0 [facility] Comment on above: Performed By: #### L 501.9520, L500.4050, L100.0100, L506.1001 ####[facility] [address] [place], [address] Chloride [Moles/Vol] 90 mmol/L Low 98-108 [facility] Comment on above: Performed By: #### L 501.9520, L500.4050, L100.0100, L506.1001 ####[facility] [address] [place], [address] CO2 [Moles/Vol] 27.1 mmol/L Normal 21.0-32.0 [facility] Comment on above: Performed By: #### L 501.9520, L500.4050, L100.0100, L506.1001 ####[facility] [address] [place], [address] Creatinine [Mass/Vol] 1.86 mg/dL High 0.70-1.[address] [facility] Comment on above: Performed By: #### L 501.9520, L500.4050, L100.0100, L506.1001 ####[facility] [address] [place], [address] GAP 15 Normal 5-15 [facility] Comment on above: Performed By: #### L 501.9520, L500.4050, L100.0100, L506.1001 ####[facility] [address] [place], [address] GFR/1.73 sq M.predicted among non-blacks MDRD (S/P/Bld) [Vol rate/Area] 27 mL/min/{1.73_m2} Low >60 [facility] Comment on above: Result Comment: mL/m in/1.73m2 CKD-EPI Creatinine Equation (2020) Performed By: #### L 501.9520, L500.4050, L100.0100, L506.1001 ####[facility] [address] [place], [address] Globulin (S) [Mass/Vol] 3.3 g/dL Normal 2.2-4.2 [facility] Comment on above: Performed By: #### L 501.9520, L500.4050, L100.0100, L506.1001 ####[facility] [address] [place], [address] Glucose [Mass/Vol] 142 mg/dL High 70-99 [facility] Comment on above: Performed By: #### L 501.9520, L500.4050, L100.0100, L506.1001 ####[facility] [address] [place], [address] Potassium [Moles/Vol] 3.6 mmol/L Normal 3.3-5.[address] [facility] Comment on above: Performed By: #### L 501.9520, L500.4050, L100.0100, L506.1001 ####[facility] [address] [place], [address] Sodium [Moles/Vol] 132 mmol/L Low 133-145 [facility] Comment on above: Performed By: #### L 501.9520, L500.4050, L100.0100, L506.1001 ####[facility] [address] [place], [address] T PROT 7.3 g/dL Normal 5.9-8.4 [facility] Comment on above: Performed By: #### L 501.9520, L500.4050, L100.0100, L506.1001 ####[facility] [address] [place], [address] Urea nitrogen [Mass/Vol] 73 mg/dL High 4-19 [facility] Comment on above: Performed By: #### L 501.9520, L500.4050, L100.0100, L506.1001 ####[facility] [address] [place], [address] Eosinophil percentageOrdered By: Vincent Flores on 05-02-2025 Eosinophils/100 WBC (Bld) 0.9 % 0-5 [facility] Erythrocyte distribution wid th ratioOrdered By: Vincent Flores on 05-02-2025 Erythrocyte distribution width (RBC) [Ratio] 22.2 % High 11.6-14.6 [facility] Erythrocyte distribution wid th standard deviationOrdered By: Vincent Flores on 05-02-2025 Erythrocyte distribution width (RBC) [Ratio] 77.4 fl High 35.1-43.9 [facility] Glomerular filtration rate ( GFR) estimation/1.73 sq m using serum, plasma, or whole bOrdered By: Vincent Flores on 05-02-2025 GFR/1.73 sq M.predicted among non-blacks MDRD (S/P/Bld) [Vol rate/Area] 27 mL/min/{1.73_m2} Low >60 [facility] Hematocrit Auto (Bld) [Volum e fraction]Ordered By: Vincent Flores on 05-02-2025 Hematocrit (Bld) [Volume fraction] 33.7 % Low 37-47 [facility] Hemoglobin measurementOrdere d By: Vincent Flores on 05-02-2025 Hemoglobin (Bld) [Mass/Vol] 11.0 g/dL Low 12.0-15.0 [facility] Immature granulocytes/100 WB C Auto (Bld)Ordered By: Vincent Flores on 05-02-2025 Immature granulocytes/100 WBC (Bld) 0.600 % 0.0-0.9 [facility] MCV (mean corpuscular volume ) determinationOrdered By: Vincent Flores on 05-02-2025 MCV (RBC) [Entitic vol] 93.9 fL 81-99 [facility] Mean corpuscular hemoglobin (MCH) determinationOrdered By: Vincent Flores on 05-02-2025 MCH (RBC) [Entitic mass] 30.6 pg 27.0-32.0 [facility] Monocyte percentageOrdered B y: Vincent Flores on 05-02-2025 Monocytes/100 WBC (Bld) 14.0 % High 0-10 [facility] Neutrophil percentageOrdered By: Vincent Folres on 05-02-2025 Neutrophils/100 WBC (Bld) 58.0 % 47-70 [facility] No Panel InformationOrdered By: Vincent Flores on 05-02-2025 1+ [facility] 31 U/L <32 [facility] Platelet countOrdered By: Ishmael Flores on 05-02-2025 Platelets (Bld) [#/Vol] 131 10*3/uL Low 150-450 [facility] Potassium measurement (mass/ volume)Ordered By: Vincent Flores on 05-02-2025 Potassium (Unsp spec) [Mass/Vol] 3.6 mmol/L 3.3-5.1 [facility] RBC Auto (Bld) [#/Vol]Ordere d By: Vincent Flores on 05-02-2025 RBC (Bld) [#/Vol] 3.59 10*6/uL Low 4.2-5.[address] [facility] Serum creatinine measurement (mass/volume)Ordered By: Vincent Flores on 05-02-2025 Creatinine [Mass/Vol] 1.86 mg/dL High 0.70-1.[address] [facility] Serum globulin measurementOr dered By: Vincent Flores on 05-02-2025 Globulin (S) [Mass/Vol] 3.3 g/dL 2.2-4.2 [facility] Serum glucose measurement (m ass/volume)Ordered By: Vincent Flores on 05-02-2025 Glucose [Mass/Vol] 142 mg/dL High 70-99 [facility] Serum or plasma alanine craven otransferase (ALT) measurementOrdered By: Vincent Flores on 05-02-2025 ALT [Catalytic activity/Vol] 13 U/L <35 [facility] Serum or plasma albumin bijan urement (mass/volume)Ordered By: Vincent Flores on 05-02-2025 Albumin [Mass/Vol] 4.0 g/dL 3.4-4.8 [facility] Serum or plasma albumin/glob ulin mass ratioOrdered By: Vincent Flores on 05-02-2025 Albumin/Globulin [Mass ratio] 1.2 {ratio} 0.9-2.4 [facility] Serum or plasma alkaline da sphatase measurementOrdered By: Vincent Flores on 05-02-2025 ALP [Catalytic activity/Vol] 104 U/L 35-104 [facility] Serum or plasma calcium bijan urement (mass/volume)Ordered By: Vincent Flores on 05-02-2025 Calcium [Mass/Vol] 9.6 mg/dL 7.6-11.0 [facility] Serum or plasma urea nitroge n measurement (mass/volume)Ordered By: Vincent Flores on 05-02-2025 Urea nitrogen [Mass/Vol] 73 mg/dL High 4-19 [facility] Sodium levelOrdered By: Vincent Flores on 05-02-2025 Sodium [Moles/Vol] 132 mmol/L Low 133-145 [facility] TSH DL <= 0.005 mIU/L QnOrde red By: Vincent Flores on 05-02-2025 TSH Qn 3.250 uIU/mL 0.300-4.200 [facility] Thyroid Stim Hormone (TSH)on 05-02-2025 TSH 3.250 uIU/mL Normal 0.300-4.200 [facility] Comment on above: Performed By: #### L 501.9430, L500.4050, L100.0100, L506.1001 ####[facility] [address] [place], [place], [id number] Total proteinOrdered By: Vincent Flores on 05-02-2025 Protein [Mass/Vol] 7.3 g/dL 5.9-8.4 [facility] Vitamin D,25 Hydroxyon 05-02 Vitamin D 25-OH 35.0 ng/mL Normal 30-100 [facility] Comment on above: Result Comment: Haydee min D StatusDeficiency: <20 ng/mL (50nmol/L)Insufficiency: 20-30 ng/mL (50-75 nmol/L)Sufficiency: 30-100 ng/mL (75-250 nmol/L)Toxicity: >100 ng/mL (>250 nmol/L) Performed By: #### L 501.9520, L500.4050, L100.0100, L506.1001 ####[facility] [address], [address] White blood cell (WBC) count Ordered By: Vincent Flores on 05-02-2025 WBC (Bld) [#/Vol] 6.6 10*3/uL 4.4-11.0 [facility] Absolute lymphocyte countOrd ered By: Ric Noriega on 04-24-2025 Lymphocytes Auto (Unsp spec) [#/Vol] 1.46 10*3/uL 0.83-4.51 [facility] Automated lymphocyte count a s percentage of total leukocytesOrdered By: Ric Noriega on 04-24-2025 Lymphocytes/100 WBC Auto (Unsp spec) 26.4 % 19-41 [facility] Basophil percentageOrdered B y: Ric Noriega on 04-24-2025 Basophils/100 WBC (Bld) 0.7 % 0-1 [facility] CBC W/Diff, Automatedon 04-05 Absolute Lymph 1.46 X10 3/uL Normal 0.83-4.51 [facility] Comment on above: Performed By: #### L 503.3250, L503.6030, L100.0100, L100.9950 ####[facility] [address] [place], [address] Absolute Neut 3.2 X10 3/uL Normal 2.0-7.7 [facility] Comment on above: Performed By: #### L 503.6550, L503.6030, L100.0100, L100.9950 ####[facility] [address] [place], [address] Basophils/100 WBC (Bld) 0.7 % Normal 0-1 [facility] Comment on above: Performed By: #### L 503.6550, L503.6030, L100.0100, L100.9950 ####[facility] [address] [place], [address] Eosinophils/100 WBC (Bld) 1.3 % Normal 0-5 [facility] Comment on above: Performed By: #### L 503.6550, L503.6030, L100.0100, L100.9950 ####[facility] [address] [place], [address] Erythrocyte distribution width (RBC) [Ratio] 22.7 % High 11.6-14.6 [facility] Comment on above: Performed By: #### L 503.6550, L503.6030, L100.0100, L100.9950 ####[facility] [address] [place], [address] Hematocrit (Bld) [Volume fraction] 33.0 % Low 37-47 [facility] Comment on above: Performed By: #### L 503.6550, L503.6030, L100.0100, L100.9950 ####[facility] [address] [place], [address] Hemoglobin (Bld) [Mass/Vol] 10.6 g/dL Low 12.0-15.0 [facility] Comment on above: Performed By: #### L 503.6550, L503.6030, L100.0100, L100.9950 ####[facility] [address] [place], [address] IG% 0.400 Normal 0.0-0.9 [facility] Comment on above: Result Comment: IG% - Immature Granulocytes (promyelocytes, myelocytes andmetamyelocytes) > 1% indicates that a LEFT SHIFT is Present. Performed By: #### L 503.6550, L503.6030, L100.0100, L100.9950 ####[facility] [address] [place], [address] Lymphocytes/100 WBC (Bld) 26.4 % Normal 19-41 [facility] Comment on above: Performed By: #### L 503.6550, L503.6030, L100.0100, L100.9950 ####[facility] [address] [place], [address] MCH (RBC) [Entitic mass] 30.4 pg Normal 27.0-32.0 [facility] Comment on above: Performed By: #### L 503.6550, L503.6030, L100.0100, L100.9950 ####[facility] [address] [place], [address] MCHC (RBC) [Mass/Vol] 32.1 g/dL Normal 32-[address] [facility] Comment on above: Performed By: #### L 503.6550, L503.6030, L100.0100, L100.9950 ####[facility] [address] [place], [address] MCV (RBC) [Entitic vol] 94.6 fL Normal 81-99 [facility] Comment on above: Performed By: #### L 503.6550, L503.6030, L100.0100, L100.9950 ####[facility] [address] [place], [address] Monocytes/100 WBC (Bld) 12.7 % High 0-10 [facility] Comment on above: Performed By: #### L 503.6550, L503.6030, L100.0100, L100.9950 ####[facility] [address] [place], [address] Neutrophils/100 WBC (Bld) 58.5 % Normal 47-70 [facility] Comment on above: Performed By: #### L 503.6550, L503.6030, L100.0100, L100.9950 ####[facility] [address] [place], [address] Nucleated RBC (Bld) [#/Vol] 0 10*3/uL Normal 0-5 [facility] Comment on above: Performed By: #### L 503.6550, L503.6030, L100.0100, L100.9950 ####[facility] [address] [place], [address] Platelet mean volume (Bld) [Entitic vol] 9.2 fL Normal 6.2-12.0 [facility] Comment on above: Performed By: #### L 503.6550, L503.6030, L100.0100, L100.9950 ####[facility] [address] [place], [address] Platelets (Bld) [#/Vol] 108 10*3/uL Low 150-450 [facility] Comment on above: Performed By: #### L 503.6550, L503.6030, L100.0100, L100.9950 ####[facility] [address] [place], [address] RBC (Bld) [#/Vol] 3.49 10*6/uL Low 4.2-5.[address] [facility] Comment on above: Performed By: #### L 503.6550, L503.6030, L100.0100, L100.9950 ####[facility] [address] [place], [address] RDW SD 80.4 fl High 35.1-43.9 [facility] Comment on above: Performed By: #### L 503.6550, L503.6030, L100.0100, L100.9950 ####[facility] [address] [place], [address] WBC (Bld) [#/Vol] 5.5 10*3/uL Normal 4.4-11.0 [facility] Comment on above: Performed By: #### L 503.6550, L503.6030, L100.0100, L100.9950 ####[facility] [address] [place], [address] Eosinophil percentageOrdered By: Ric Noriega on 04-24-2025 Eosinophils/100 WBC (Bld) 1.3 % 0-5 [facility] Erythrocyte distribution wid th ratioOrdered By: [facility] Norie[facility] on 04-24-2025 Erythrocyte distribution width (RBC) [Ratio] 22.7 % High 11.6-14.6 [facility] Erythrocyte distribution wid th standard deviationOrdered By: [facility] Noriega on 04-24-2025 Erythrocyte distribution width (RBC) [Ratio] 80.4 fl High 35.1-43.9 [facility] Ferritinon 04-24-2025 Ferritin [Mass/Vol] 135 ng/mL Normal 22-[address] [facility] Comment on above: Performed By: #### L 503.6550, L503.6030, L100.0100, L100.9950 ####[facility] [address] [place], [address] Hematocrit Auto (Bld) [Volum e fraction]Ordered By: Ric Noriega on 04-24-2025 Hematocrit (Bld) [Volume fraction] 33.0 % Low 37-47 [facility] Hemoglobin measurementOrdere d By: Ric Noriega on 04-24-2025 Hemoglobin (Bld) [Mass/Vol] 10.6 g/dL Low 12.0-15.0 [facility] Immature granulocytes/100 WB C Auto (Bld)Ordered By: Ric Noriega on 04-24-2025 Immature granulocytes/100 WBC (Bld) 0.400 % 0.0-0.9 [facility] Iron measurement (mass/mass) Ordered By: Ric Noriega on 04-24-2025 Iron (Unsp spec) [Mass/Mass] 119 ug/dL 50-170 [facility] Iron+Iron Binding Capacityon 04-24-2025 Iron [Mass/Vol] 119 ug/dL Normal 50-170 [facility] Comment on above: Performed By: #### L 503.6550, L503.6030, L100.0100, L100.9950 ####[facility] [address] [place], [address] IRON SATURATION 30.0 Normal 13-59 [facility] Comment on above: Performed By: #### L 503.6550, L503.6030, L100.0100, L100.9950 ####[facility] [address] [place], [address] TIBC 397 ug/dL Normal 250-450 [facility] Comment on above: Performed By: #### L 503.6550, L503.6030, L100.0100, L100.9950 ####[facility] [address] [place], [address] UIBC 278 ug/dL Normal 228-428 [facility] Comment on above: Performed By: #### L 503.6550, L503.6030, L100.0100, L100.9950 ####[facility] [address] [place], [address] MCV (mean corpuscular volume ) determinationOrdered By: Ric Noriega on 04-24-2025 MCV (RBC) [Entitic vol] 94.6 fL 81-99 [facility] Mean corpuscular hemoglobin (MCH) determinationOrdered By: Ric Noriega on 04-24-2025 MCH (RBC) [Entitic mass] 30.4 pg 27.0-32.0 [facility] Monocyte percentageOrdered B y: Ric Noriega on 04-24-2025 Monocytes/100 WBC (Bld) 12.7 % High 0-10 [facility] Neutrophil percentageOrdered By: Ric Agudelokelly on 04-24-2025 Neutrophils/100 WBC (Bld) 58.5 % 47-70 [facility] No Panel InformationOrdered By: Ric Agudelokelly on 04-24-2025 278 ug/dL 228-428 [facility] Oncology Visit Reporton 04-05 Oncology Visit Report Normal [facility] Platelet countOrdered By: [place] Hari on 04-24-2025 Platelets (Bld) [#/Vol] 108 10*3/uL Low 150-450 [facility] RBC Auto (Bld) [#/Vol]Ordere d By: Ric Agudelokelly on 04-24-2025 RBC (Bld) [#/Vol] 3.49 10*6/uL Low 4.2-5.[address] [facility] Retic Panelon 04-24-2025 IM RET FRACTION 13.80 Normal 3.00-15.90 [facility] Comment on above: Performed By: #### L 503.6550, L503.6030, L100.0100, L100.9950 ####[facility] [address] [place], [place], [id number] RET-HE 30.4 pg Normal 30-35 [facility] Comment on above: Performed By: #### L 503.6550, L503.6030, L100.0100, L100.9950 ####[facility] [address] [place], [place], [id number] Retic Count 1.82 High 0.5-1.5 [facility] Comment on above: Performed By: #### L 503.6550, L503.6030, L100.0100, L100.9950 ####[facility] [address] [place], [place], [id number] Reticulocyte hemoglobin equi valent (RET-He) measurementOrdered By: Abirubin Noriega on 04-24-2025 Hemoglobin (Reticulocytes) [Entitic mass] 30.4 pg 30-35 [facility] Reticulocytes Auto (Bld) [#/ Vol][facility]: [facility] on 04-24-2025 Reticulocytes/100 RBC (Bld) 1.82 % High 0.5-1.5 [facility] Serum or plasma ferritin austin surement (mass/volume)Ordered By: [facility] Hari on 04-24-2025 Ferritin [Mass/Vol] 135 ng/mL 22-[address] [facility] Serum or plasma iron saturat ion measurement (mass fraction)Ordered By: [facility] 04-[facility]2025 Iron saturation [Mass fraction] 30.0 % 13-59 [facility] White blood cell (WBC) count Ordered By: [facility] Hari on 04-24-2025 WBC (Bld) [#/Vol] 5.5 10*3/uL 4.4-11.0 [facility] Wound Ctr History AND Physic apollo 04-23-2025 Wound Ctr History & Physical Normal [facility] Culture, Anaerobic Any Sourc andie 04-08-2025 CUAN No anaerobic bacteri a isolated. [facility] Comment on above: Performed By: #### L 8200.1075, M100.2000, M100.4001, M100.3000 ####[facility] [address] [place], [place], [id number] Wound Cultureon 04-04-2025 WC Normal [facility] Comment on above: Performed By: #### L 8200.1075, M100.2000, M100.4001, M100.3000 ####[facility] [address] [facility] [place], [place], [phone] Gram Stainon 04-03-2025 GS Acceptable Specimen? Yes (<25 Epithelial cells per/lpf) Gram Stain 2+ White Blood Cells 1+ Red Blood Cells No Epithelial cells 1+ Gram positive cocci Normal [facility] Comment on above: Performed By: #### L 8200.1075, M100.2000, M100.4001, M100.3000 ####[facility] [address] [place], [address] Anaerobic cultureOrdered By: Vincent Flores on 04-02-2025 Bacteria identified Anaer cx Nom (Unsp spec) No anaerobic bacteria isolated. [facility] Gram stainOrdered By: Vincent cintron on 04-02-2025 Microscopic observation Gram stain Nom (Unsp spec) [facility] Microscopic observation Gram stain Nom (Unsp spec) [facility] MRSA Wound DNA by PCRon 03-06 MRSA DNA ASSAY Negative Normal Negative [facility] Comment on above: Order Comment: RIGHT ARM Performed By: #### L 8200.1075, M100.2000, M100.4001, M100.3000 ####[facility] [address] [place], [address] SA DNA ASSAY Positive Abnormal Negative [facility] Comment on above: Order Comment: RIGHT ARM Performed By: #### L 8200.1075, M100.2000, M100.4001, M100.3000 ####[facility] [address] [place], [address] Staphylococcus aureus DNA de tection by probe and target amplification methodOrdered By: Vincent Flores on 04-02-2025 S. aureus DNA RANDOLPH+probe Ql (Unsp spec) Positive High Negative [facility] Emergency Department Summary on 03-22-2025 Emergency Department Summary Normal [facility] Erythropoietinon 03-15-2025 ERYTHROPOIETIN 190.9 mIU/mL High 2.6-18.5 [facility] Comment on above: Result Comment: Babel [address] DxI 800 Immunoassay SystemValues obtained with different assay methods or kits cannotbe used interchangeably. Results cannot be interpreted asabsolute evidence of the presence or absence of malignantdisease.Performed at: [address] [id number] Director: Chuy Rizvi PhD, Phone: [phone] Performed By: #### L 100.9950, L100.0100, L3100.1350, L503.6550, L503.0106, L503.6030, L500.4050 ####[facility] [address] [place], [address] Absolute lymphocyte countOrd ered By: Ric Noriega on 03-13-2025 Lymphocytes Auto (Unsp spec) [#/Vol] 1.60 10*3/uL 0.83-4.51 [facility] Anion gap in Serum or Plasma Ordered By: Ric Noriega on 03-13-2025 Anion gap [Moles/Vol] 16 mmol/L High 5-[address] [facility] Automated lymphocyte count a s percentage of total leukocytesOrdered By: Ric Noriega on 03-13-2025 Lymphocytes/100 WBC Auto (Unsp spec) 24.2 % 19-41 [facility] BUN/creatinine ratioOrdered By: Ric Noriega on 03-13-2025 Urea nitrogen/Creatinine [Mass ratio] 24.6 mg/mg High 10-20 [facility] Basophil percentageOrdered B y: Ric Noriega on 03-13-2025 Basophils/100 WBC (Bld) 0.9 % 0-1 [facility] Bilirubin, totalOrdered By: Ric Noriega on 03-13-2025 Bilirubin [Mass/Vol] 1.04 mg/dL 0.00-1.30 [facility] Blood manual differential co mment interpretation (narrative result)Ordered By: Ric Noriega on 03-13-2025 Manual differential comment Cristhian (Bld) [Interp] SCANNED [facility] Blood polychromasia detectio n by light microscopyOrdered By: [facility] on 03-13-2025 Polychromasia LM Ql (Bld) 1+ [facility] CBC W/Diff, Automatedon Anisocytosis Ql (Bld) 2+ Normal [facility] Comment on above: Performed By: #### L 100.9950, L100.0100, L3100.1350, L503.6550, L503.0106, L503.6030, L500.4050 ####[facility] [address] [place], [address] POLYCHROMASIA 1+ Normal [facility] Comment on above: Performed By: #### L 100.9950, L100.0100, L3100.1350, L503.6550, L503.0106, L503.6030, L500.4050 ####[facility] [address] [place], [address] PLT EST ADEQUATE Normal ADEQ [facility] Comment on above: Performed By: #### L 100.9950, L100.0100, L3100.1350, L503.6550, L503.0106, L503.6030, L500.4050 ####[facility] [address] [place], [address] SMEAR COMMENT SCANNED Normal [facility] Comment on above: Performed By: #### L 100.9950, L100.0100, L3100.1350, L503.6550, L503.0106, L503.6030, L500.4050 ####[facility] [address] [place], [address] Carbon dioxide, total [Moles /volume] in Central venous bloodOrdered By: Ric Noriega on 03-13-2025 CO2 [Moles/Vol] 24.4 mmol/L 21.0-32.0 [facility] Chloride assayOrdered By: Beryl Noriega on 03-13-2025 Chloride [Moles/Vol] 92 mmol/L Low 98-108 [facility] Comprehensive Metabolic Prof ilon 03-13-2025 Albumin [Mass/Vol] 4.0 g/dL Normal 3.4-4.8 [facility] Comment on above: Performed By: #### L 100.9950, L100.0100, L3100.1350, L503.6550, L503.0106, L503.6030, L500.4050 ####[facility] [address] [place], [address] Albumin/Globulin [Mass ratio] 1.2 {ratio} Normal 0.9-2.4 [facility] Comment on above: Performed By: #### L 100.9950, L100.0100, L3100.1350, L503.6550, L503.0106, L503.6030, L500.4050 ####[facility] [address] [place], [address] ALK PHOS 136 U/L High 35-104 [facility] Comment on above: Performed By: #### L 100.9950, L100.0100, L3100.1350, L503.6550, L503.0106, L503.6030, L500.4050 ####[facility] [address] [place], [address] ALT [Catalytic activity/Vol] 16 U/L Normal <=34 [facility] Comment on above: Performed By: #### L 100.9950, L100.0100, L3100.1350, L503.6550, L503.0106, L503.6030, L500.4050 ####[facility] [address] [place], [address] AST [Catalytic activity/Vol] 33 U/L High <=31 [facility] Comment on above: Performed By: #### L 100.9950, L100.0100, L3100.1350, L503.6550, L503.0106, L503.6030, L500.4050 ####[facility] [address] [place], [address] Bilirubin [Mass/Vol] 1.04 mg/dL Normal 0.00-1.30 [facility] Comment on above: Performed By: #### L 100.9950, L100.0100, L3100.1350, L503.6550, L503.0106, L503.6030, L500.4050 ####[facility] [address] [place], [address] BUN/CRE 24.6 RATIO High 10-20 [facility] Comment on above: Performed By: #### L 100.9950, L100.0100, L3100.1350, L503.6550, L503.0106, L503.6030, L500.4050 ####[facility] [address] [place], [address] Calcium [Mass/Vol] 9.2 mg/dL Normal 7.6-11.0 [facility] Comment on above: Performed By: #### L 100.9950, L100.0100, L3100.1350, L503.6550, L503.0106, L503.6030, L500.4050 ####[facility] [address] [place], [address] Chloride [Moles/Vol] 92 mmol/L Low 98-108 [facility] Comment on above: Performed By: #### L 100.9950, L100.0100, L3100.1350, L503.6550, L503.0106, L503.6030, L500.4050 ####[facility] [address] [place], [address] CO2 [Moles/Vol] 24.4 mmol/L Normal 21.0-32.0 [facility] Comment on above: Performed By: #### L 100.9950, L100.0100, L3100.1350, L503.6550, L503.0106, L503.6030, L500.4050 ####[facility] [address] [place], [address] Creatinine [Mass/Vol] 2.12 mg/dL High 0.70-1.[address] [facility] Comment on above: Performed By: #### L 100.9950, L100.0100, L3100.1350, L503.6550, L503.0106, L503.6030, L500.4050 ####[facility] [address] [place], [address] GAP 16 High 5-15 [facility] Comment on above: Performed By: #### L 100.9950, L100.0100, L3100.1350, L503.6550, L503.0106, L503.6030, L500.4050 ####[facility] [address] [place], [address] GFR/1.73 sq M.predicted among non-blacks MDRD (S/P/Bld) [Vol rate/Area] 23 mL/min/{1.73_m2} Low >60 [facility] Comment on above: Result Comment: mL/m in/1.73m2 CKD-EPI Creatinine Equation (2020) Performed By: #### L 100.9950, L100.0100, L3100.1350, L503.6550, L503.0106, L503.6030, L500.4050 ####[facility] [address] [place], [place], [phone] Globulin (S) [Mass/Vol] 3.3 g/dL Normal 2.2-4.2 [facility] Comment on above: Performed By: #### L 100.9950, L100.0100, L3100.1350, L503.6550, L503.0106, L503.6030, L500.4050 ####[facility] [address] [place], [place], [phone] Glucose [Mass/Vol] 139 mg/dL High 70-99 [facility] Comment on above: Performed By: #### L 100.9950, L100.0100, L3100.1350, L503.6550, L503.0106, L503.6030, L500.4050 ####[facility] [address] [place], [address] Potassium [Moles/Vol] 3.8 mmol/L Normal 3.3-5.[address] [facility] Comment on above: Performed By: #### L 100.9950, L100.0100, L3100.1350, L503.6550, L503.0106, L503.6030, L500.4050 ####[facility] [address] [place], [address] Sodium [Moles/Vol] 132 mmol/L Low 133-145 [facility] Comment on above: Performed By: #### L 100.9950, L100.0100, L3100.1350, L503.6550, L503.0106, L503.6030, L500.4050 ####[facility] [address] [place], [address] T PROT 7.3 g/dL Normal 5.9-8.4 [facility] Comment on above: Performed By: #### L 100.9950, L100.0100, L3100.1350, L503.6550, L503.0106, L503.6030, L500.4050 ####[facility] [address] [place], [address] Urea nitrogen [Mass/Vol] 52 mg/dL High 4-19 [facility] Comment on above: Performed By: #### L 100.9950, L100.0100, L3100.1350, L503.6550, L503.0106, L503.6030, L500.4050 ####[facility] [address] [place], [address] Eosinophil percentageOrdered By: Ric Noriega on 03-13-2025 Eosinophils/100 WBC (Bld) 1.2 % 0-5 [facility] Erythrocyte distribution wid th ratioOrdered By: Ric Noriega on 03-13-2025 Erythrocyte distribution width (RBC) [Ratio] 25.2 % High 11.6-14.6 [facility] Erythrocyte distribution wid th standard deviationOrdered By: Ric Noriega on 03-13-2025 Erythrocyte distribution width (RBC) [Ratio] 82.1 fl High 35.1-43.9 [facility] Ferritinon 03-13-2025 Ferritin [Mass/Vol] 48 ng/mL Normal 22-[address] [facility] Comment on above: Performed By: #### L 100.9950, L100.0100, L3100.1350, L503.6550, L503.0106, L503.6030, L500.4050 ####[facility] [address] [place], [place], [phone] Glomerular filtration rate ( GFR) estimation/1.73 sq m using serum, plasma, or whole bOrdered By: Ric Noriega on 03-13-2025 GFR/1.73 sq M.predicted among non-blacks MDRD (S/P/Bld) [Vol rate/Area] 23 mL/min/{1.73_m2} Low >60 [facility] Hematocrit Auto (Bld) [Volum e fraction]Ordered By: Ric Noriega on 03-13-2025 Hematocrit (Bld) [Volume fraction] 27.8 % Low 37-47 [facility] Hemoglobin measurementOrdere d By: Ric Noriega on 03-13-2025 Hemoglobin (Bld) [Mass/Vol] 8.7 g/dL Low 12.0-15.0 [facility] Immature granulocytes/100 WB C Auto (Bld)Ordered By: Ric Noriega on 03-13-2025 Immature granulocytes/100 WBC (Bld) 0.200 % 0.0-0.9 [facility] Iron measurement (mass/mass) Ordered By: Ric Noriega on 03-13-2025 Iron (Unsp spec) [Mass/Mass] 39 ug/dL Low 50-170 [facility] Iron+Iron Binding Capacityon 03-13-2025 TIBC 453 ug/dL High 250-450 [facility] Comment on above: Performed By: #### L 100.9950, L100.0100, L3100.1350, L503.6550, L503.0106, L503.6030, L500.4050 ####[facility] [address] [place], [address] MCV (mean corpuscular volume ) determinationOrdered By: Ric Noriega on 03-13-2025 MCV (RBC) [Entitic vol] 89.7 fL 81-99 [facility] Mean corpuscular hemoglobin (MCH) determinationOrdered By: Ric Noriega on 03-13-2025 MCH (RBC) [Entitic mass] 28.1 pg 27.0-32.0 [facility] Monocyte percentageOrdered B y: Ric Noriega on 03-13-2025 Monocytes/100 WBC (Bld) 14.7 % High 0-10 [facility] Neutrophil percentageOrdered By: Ric Noriega on 03-13-2025 Neutrophils/100 WBC (Bld) 58.8 % 47-70 [facility] No Panel InformationOrdered By: Ric Noriega on 03-13-2025 2+ [facility] 33 U/L High <32 [facility] 414 ug/dL 228-428 [facility] Oncology Visit Reporton Oncology Visit Report Normal [facility] Platelet countOrdered By: Beryl Noriega on 03-13-2025 Platelets (Bld) [#/Vol] 184 10*3/uL 150-450 [facility] Platelet estimateOrdered By: Ric Noriega on 03-13-2025 Platelets LM Ql (Bld) ADEQUATE ADEQ [facility] Potassium measurement (mass/ volume)Ordered By: Ric Noriega on 03-13-2025 Potassium (Unsp spec) [Mass/Vol] 3.8 mmol/L 3.3-5.1 [facility] RBC Auto (Bld) [#/Vol]Ordere d By: Ric Noriega on 03-13-2025 RBC (Bld) [#/Vol] 3.10 10*6/uL Low 4.2-5.[address] [facility] Retic Panelon 03-13-2025 IM RET FRACTION 30.30 High 3.00-15.90 [facility] Comment on above: Performed By: #### L 100.9950, L100.0100, L3100.1350, L503.6550, L503.0106, L503.6030, L500.4050 ####[facility] [address] [place], [place], [phone] RET-HE 27.7 pg Low 30-35 [facility] Comment on above: Performed By: #### L 100.9950, L100.0100, L3100.1350, L503.6550, L503.0106, L503.6030, L500.4050 ####[facility] [address] [place], [place], [phone] Retic Count 2.47 High 0.5-1.5 [facility] Comment on above: Performed By: #### L 100.9950, L100.0100, L3100.1350, L503.6550, L503.0106, L503.6030, L500.4050 ####[facility] [address] [place], [place], [phone] Reticulocyte hemoglobin equi valent (RET-He) measurementOrdered By: Ric Noriega on 03-13-2025 Hemoglobin (Reticulocytes) [Entitic mass] 27.7 pg Low 30-35 [facility] Reticulocytes Auto (Bld) [#/ Vol]Ordered By: Ric Noriega on 03-13-2025 Reticulocytes/100 RBC (Bld) 2.47 % High 0.5-1.5 [facility] Serum creatinine measurement (mass/volume)Ordered By: Ric Noriega on 03-13-2025 Creatinine [Mass/Vol] 2.12 mg/dL High 0.70-1.[address] [facility] Serum globulin measurementOr dered By: Ric Noriega on 03-13-2025 Globulin (S) [Mass/Vol] 3.3 g/dL 2.2-4.2 [facility] Serum glucose measurement (m ass/volume)Ordered By: Ric Noriega on 03-13-2025 Glucose [Mass/Vol] 139 mg/dL High 70-99 [facility] Serum or plasma alanine craven otransferase (ALT) measurementOrdered By: Ric Noriega on 03-13-2025 ALT [Catalytic activity/Vol] 16 U/L <35 [facility] Serum or plasma albumin bijan urement (mass/volume)Ordered By: Ric Noriega on 03-13-2025 Albumin [Mass/Vol] 4.0 g/dL 3.4-4.8 [facility] Serum or plasma albumin/glob ulin mass ratioOrdered By: Ric Noriega on 03-13-2025 Albumin/Globulin [Mass ratio] 1.2 {ratio} 0.9-2.4 [facility] Serum or plasma alkaline da sphatase measurementOrdered By: Ric Noriega on 03-13-2025 ALP [Catalytic activity/Vol] 136 U/L High 35-104 [facility] Serum or plasma calcium bijan urement (mass/volume)Ordered By: Ric Noriega on 03-13-2025 Calcium [Mass/Vol] 9.2 mg/dL 7.6-11.0 [facility] Serum or plasma erythropoiet in (EPO) measurement (units/volume)Ordered By: Ric Noriega on 03-13-2025 Erythropoietin (EPO) Qn 190.9 mIU/mL High 2.6-18.5 [facility] Serum or plasma ferritin austin surement (mass/volume)Ordered By: Ric Noriega on 03-13-2025 Ferritin [Mass/Vol] 48 ng/mL 22-[address] [facility] Serum or plasma iron saturat ion measurement (mass fraction)Ordered By: Ric Noriega on 03-13-2025 Iron saturation [Mass fraction] 8.6 % Low 13-59 [facility] Serum or plasma urea nitroge n measurement (mass/volume)Ordered By: Ric Noriega on 03-13-2025 Urea nitrogen [Mass/Vol] 52 mg/dL High 4-19 [facility] Sodium levelOrdered By: Abi Noriega on 03-13-2025 Sodium [Moles/Vol] 132 mmol/L Low 133-145 [facility] Total proteinOrdered By: Ashwin walter Hari on 03-13-2025 Protein [Mass/Vol] 7.3 g/dL 5.9-8.4 [facility] Vitamin B12on 03-13-2025 Cobalamin (Vitamin B12) [Mass/Vol] 1100 pg/mL High 180-914 [facility] Comment on above: Performed By: #### L 100.9950, L100.0100, L3100.1350, L503.6550, L503.0106, L503.6030, L500.4050 ####[facility] [address] [place], [place], [address] Vitamin B12 ser/plasOrdered By: Ric Hari on 03-13-2025 Cobalamin (Vitamin B12) [Mass/Vol] 1100 pg/mL High 180-914 [facility] White blood cell (WBC) count Ordered By: Ric Noriega on 03-13-2025 WBC (Bld) [#/Vol] 6.6 10*3/uL 4.4-11.0 [facility] Absolute lymphocyte countOrd ered By: Vincent Flores on 03-09-2025 Lymphocytes Auto (Unsp spec) [#/Vol] 2.06 10*3/uL 0.83-4.51 [facility] Anion gap in Serum or Plasma Ordered By: Vincent Flores on 03-09-2025 Anion gap [Moles/Vol] 13 mmol/L 5-[address] [facility] Automated lymphocyte count a s percentage of total leukocytesOrdered By: Vincent Flores on 03-09-2025 Lymphocytes/100 WBC Auto (Unsp spec) 33.8 % 19-41 [facility] BUN/creatinine ratioOrdered By: Vincent Flores on 03-09-2025 Urea nitrogen/Creatinine [Mass ratio] 27.6 mg/mg High 10 [facility] Basic Metabolic Profile (BMP )on 03-09-2025 BUN/CRE 27.6 RATIO High 04-23 [facility] Comment on above: Performed By: #### L 500.2500, L100.0100 ####[facility] [address] [place], [address] Calcium [Mass/Vol] 9.1 mg/dL Normal 7.6-11.0 [facility] Comment on above: Performed By: #### L 500.2500, L100.0100 ####[facility] [address] [place], [address] Chloride [Moles/Vol] 97 mmol/L Low 98-108 [facility] Comment on above: Performed By: #### L 500.2500, L100.0100 ####[facility] [address] [place], [address] CO2 [Moles/Vol] 21.7 mmol/L Normal 21.0-32.0 [facility] Comment on above: Performed By: #### L 500.2500, L100.0100 ####[facility] [address] [place], [address] Creatinine [Mass/Vol] 1.80 mg/dL High 0.70-1.[address] [facility] Comment on above: Performed By: #### L 500.2500, L100.0100 ####[facility] [address] [place], [address] GAP 13 Normal 5-15 [facility] Comment on above: Performed By: #### L 500.2500, L100.0100 ####[facility] [address] [place], [address] GFR/1.73 sq M.predicted among non-blacks MDRD (S/P/Bld) [Vol rate/Area] 28 mL/min/{1.73_m2} Low >60 [facility] Comment on above: Result Comment: mL/m in/1.73m2 CKD-EPI Creatinine Equation (2020) Performed By: #### L 500.2500, L100.0100 ####[facility] [address] [place], [address] Glucose [Mass/Vol] 136 mg/dL High 70-99 [facility] Comment on above: Performed By: #### L 500.2500, L100.0100 ####[facility] [address] [place], [address] Potassium [Moles/Vol] 5.0 mmol/L Normal 3.3-5.[address] [facility] Comment on above: Performed By: #### L 500.2500, L100.0100 ####[facility] [address] [place], [address] Sodium [Moles/Vol] 131 mmol/L Low 133-145 [facility] [facility] Comment on above: Performed By: #### L 500.2500, L100.0100 ####[facility] [address] [place], [address] Urea nitrogen [Mass/Vol] 50 mg/dL High 4-19 [facility] Comment on above: Performed By: #### L 500.2500, L100.0100 ####[facility] [address] [place], [address] Basophil percentageOrdered B y: Vnicent Flores on 03-09-2025 Basophils/100 WBC (Bld) 1.0 % 0-1 [facility] Blood manual differential co mment interpretation (narrative result)Ordered By: Vincent Flores on 03-09-2025 Manual differential comment Cristhian (Bld) [Interp] SCANNED [facility] CBC W/Diff, Automatedon Anisocytosis Ql (Bld) 2+ Normal [facility] Comment on above: Performed By: #### L 500.2500, L100.0100 ####[facility] [address] [place], [address] REACTIVE LYMPH 1+ Normal [facility] Comment on above: Performed By: #### L 500.2500, L100.0100 ####[facility] [address] [place], [place], [address] SMEAR COMMENT SCANNED Normal [facility] Comment on above: Performed By: #### L 500.2500, L100.0100 ####[facility] [address] [place], [address] Carbon dioxide, total [Moles /volume] in Central venous bloodOrdered By: Vincent Flores on 03-09-2025 CO2 [Moles/Vol] 21.7 mmol/L 21.0-32.0 [facility] Chloride assayOrdered By: Ishmael Flores on 03-09-2025 Chloride [Moles/Vol] 97 mmol/L Low 98-108 [facility] Eosinophil percentageOrdered By: Vincent Flores on 03-09-2025 Eosinophils/100 WBC (Bld) 1.6 % 0-5 [facility] Erythrocyte distribution wid th ratioOrdered By: Vincent Flores 03-09-2025 Erythrocyte distribution width (RBC) [Ratio] 24.9 % High 11.6-14.6 [facility] Erythrocyte distribution wid th standard deviationOrdered By: Vincent Flores 03-09-2025 Erythrocyte distribution width (RBC) [Ratio] 81.9 fl High 35.1-43.9 [facility] Glomerular filtration rate ( GFR) estimation/1.73 sq m using serum, plasma, or whole bOrdered By: Vincent Flores on 03-09-2025 GFR/1.73 sq M.predicted among non-blacks MDRD (S/P/Bld) [Vol rate/Area] 28 mL/min/{1.73_m2} Low >60 [facility] Hematocrit Auto (Bld) [Volum e fraction]Ordered By: Vincent Flores 03-09-2025 Hematocrit (Bld) [Volume fraction] 28.3 % Low 37-47 [facility] Hemoglobin measurementOrdere d By: Vincent Flores 03-09-2025 Hemoglobin (Bld) [Mass/Vol] 8.9 g/dL Low 12.0-15.0 [facility] Immature granulocytes/100 WB C Auto (Bld)Ordered By: Vincent Flores 03-09-2025 Immature granulocytes/100 WBC (Bld) 0.500 % 0.0-0.9 [facility] MCV (mean corpuscular volume ) determinationOrdered By: Vincent Flores on 03-09-2025 MCV (RBC) [Entitic vol] 89.3 fL 81-99 [facility] Mean corpuscular hemoglobin (MCH) determinationOrdered By: Vincent Flores on 03-09-2025 MCH (RBC) [Entitic mass] 28.1 pg 27.0-32.0 [facility] Monocyte percentageOrdered B y: Vincent Flores on 03-09-2025 Monocytes/100 WBC (Bld) 16.2 % High 0-10 [facility] Neutrophil percentageOrdered By: Vincent Flores on 03-09-2025 Neutrophils/100 WBC (Bld) 46.9 % Low 47-70 [facility] No Panel InformationOrdered By: Vincent Flores on 03-09-2025 2+ [facility] Platelet countOrdered By: Ishmael Flores on 03-09-2025 Platelets (Bld) [#/Vol] 191 10*3/uL 150-450 [facility] Potassium measurement (mass/ volume)Ordered By: Vincent Flores on 03-09-2025 Potassium (Unsp spec) [Mass/Vol] 5.0 mmol/L 3.3-5.1 [facility] RBC Auto (Bld) [#/Vol]Ordere d By: Vincent Flores 03-09-2025 RBC (Bld) [#/Vol] 3.17 10*6/uL Low 4.2-5.[address] [facility] Serum creatinine measurement (mass/volume)Ordered By: Vincent Flores on 03-09-2025 Creatinine [Mass/Vol] 1.80 mg/dL High 0.70-1.[address] [facility] Serum glucose measurement (m ass/volume)Ordered By: Vincent Flores on 03-09-2025 Glucose [Mass/Vol] 136 mg/dL High 70-99 [facility] Serum or plasma calcium bijan urement (mass/volume)Ordered By: Vincent Flores 03-09-2025 Calcium [Mass/Vol] 9.1 mg/dL 7.6-11.0 [facility] Serum or plasma urea nitroge n measurement (mass/volume)Ordered By: Vincent Flores on 03-09-2025 Urea nitrogen [Mass/Vol] 50 mg/dL High - [facility] Sodium levelOrdered By: Vincent Flores on 03-09-2025 Sodium [Moles/Vol] 131 mmol/L Low 133-145 [facility] White blood cell (WBC) count Ordered By: Vincent Flores on 03-09-2025 WBC (Bld) [#/Vol] 6.1 10*3/uL 4.4-11.0 [facility] Anion gap in Serum or Plasma Ordered By: Vincent Flores on 03-02-2025 Anion gap [Moles/Vol] 14 mmol/L - [facility] BUN/creatinine ratioOrdered By: Vincent Flores on 03-02-2025 Urea nitrogen/Creatinine [Mass ratio] 45.3 mg/mg High 04-23 [facility] Basic Metabolic Profile (BMP )on 03-02-2025 BUN/CRE 45.3 RATIO High 04-23 [facility] Comment on above: Performed By: #### L 500.2500 ####[facility] [address] [place], [address] GAP 14 Normal - [facility] Comment on above: Performed By: #### L 500.2500 ####[facility] [address] [place], [address] Potassium [Moles/Vol] 4.2 mmol/L Normal 3.3-5.[address] [facility] Comment on above: Performed By: #### L 500.2500 ####[facility] [address] [place], [address] Carbon dioxide, total [Moles /volume] in Central venous bloodOrdered By: Vincent Flores on 03-02-2025 CO2 [Moles/Vol] 25.2 mmol/L Normal 21.0-32.0 [facility] Comment on above: Performed By: #### L 500.2500 ####[facility] [address] [place], [address] Chloride assayOrdered By: Ishmael Petersok on 03-02-2025 Chloride [Moles/Vol] 94 mmol/L Low 98-108 [facility] Comment on above: Performed By: #### L 500.2500 ####[facility] [address] [place], [place], [address] Glomerular filtration rate ( GFR) estimation/1.73 sq m using serum, plasma, or whole bOrdered By: Vincent Flores on 03-02-2025 GFR/1.73 sq M.predicted among non-blacks MDRD (S/P/Bld) [Vol rate/Area] 28 mL/min/{1.73_m2} Low >60 [facility] Comment on above: Result Comment: mL/m in/1.73m2 CKD-EPI Creatinine Equation (2020) Performed By: #### L 500.2500 ####[facility] [address] [place], [place], [id number] Potassium measurement (mass/ volume)Ordered By: Vincent Flores on 03-02-2025 Potassium (Unsp spec) [Mass/Vol] 4.2 mmol/L 3.3-5.1 [facility] Serum creatinine measurement (mass/volume)Ordered By: Vincent Flores on 03-02-2025 Creatinine [Mass/Vol] 1.79 mg/dL High 0.70-1.[address] [facility] Comment on above: Performed By: #### L 500.2500 ####[facility] [address] [place], [place], [id number] Serum glucose measurement (m ass/volume)Ordered By: Vincent Flores on 03-02-2025 Glucose [Mass/Vol] 193 mg/dL High 70-99 [facility] Comment on above: Performed By: #### L 500.2500 ####[facility] [address] [place], [place], [address] Serum or plasma calcium bijan urement (mass/volume)Ordered By: Vincent Flores on 03-02-2025 Calcium [Mass/Vol] 9.4 mg/dL Normal 7.6-11.0 [facility] Comment on above: Performed By: #### L 500.2500 ####[facility] [address] [place], [address] Serum or plasma urea nitroge n measurement (mass/volume)Ordered By: Vincent Flores on 03-02-2025 Urea nitrogen [Mass/Vol] 81 mg/dL High 4-19 [facility] Comment on above: Performed By: #### L 500.2500 ####[facility] [address] [place], [address] Sodium levelOrdered By: Vincent Flores on 03-02-2025 Sodium [Moles/Vol] 133 mmol/L Normal 133-145 [facility] Comment on above: Performed By: #### L 500.2500 ####[facility] [address] [place], [address] Urine Cultureon 03-02-2025 URC Normal [facility] Comment on above: Performed By: #### L 500.4050, L503.7505, L501.9520, L400.0001, L100.0100, M100.2200 ####[facility] [address] [place], [address] Wound Ctr History AND Physic apollo 03-01-2025 Wound Ctr History & Physical Normal [facility] Absolute lymphocyte countOrd ered By: Vincent Flores on 02-27-2025 Lymphocytes Auto (Unsp spec) [#/Vol] 1.36 10*3/uL 0.83-4.51 [facility] Anion gap in Serum or Plasma Ordered By: Vincent Flores on 02-27-2025 Anion gap [Moles/Vol] 18 mmol/L High 5-[address] [facility] Automated lymphocyte count a s percentage of total leukocytesOrdered By: Vincent Flores on 02-27-2025 Lymphocytes/100 WBC Auto (Unsp spec) 19.4 % 19-41 [facility] BUN/creatinine ratioOrdered By: Vincent Folres on 02-27-2025 Urea nitrogen/Creatinine [Mass ratio] 56.8 mg/mg High 10-20 [facility] Basophil percentageOrdered B y: Vincent Flores on 02-27-2025 Basophils/100 WBC (Bld) 0.7 % 0-1 [facility] Bilirubin Test strip Ql (U)O rdered By: Vincent Flores on 02-27-2025 Bilirubin Ql (U) Negative Negative [facility] Bilirubin, totalOrdered By: Vincent Flores on 02-27-2025 Bilirubin [Mass/Vol] 1.42 mg/dL High 0.00-1.30 [facility] Comment on above: Performed By: #### L 500.4050, L503.7505, L501.9520, L400.0001, L100.0100, M100.2200 ####[facility] [address] [place], [place], [address] Blood manual differential co mment interpretation (narrative result)Ordered By: Vincent Flores on 02-27-2025 Manual differential comment Cristhian (Bld) [Interp] SCANNED [facility] Blood polychromasia detectio n by light microscopyOrdered By: Vincent Flores on 02-27-2025 Polychromasia LM Ql (Bld) RARE [facility] CBC W/Diff, Automatedon 02-03 Anisocytosis Ql (Bld) 2+ Normal [facility] Comment on above: Performed By: #### L 500.4050, L503.7505, L501.9520, L400.0001, L100.0100, M100.2200 ####[facility] [address] [place], [place], [address] POLYCHROMASIA RARE Normal [facility] Comment on above: Performed By: #### L 500.4050, L503.7505, L501.9520, L400.0001, L100.0100, M100.2200 ####[facility] [address] [place], [place], [id number] SMEAR COMMENT SCANNED Normal [facility] Comment on above: Performed By: #### L 500.4050, L503.7505, L501.9520, L400.0001, L100.0100, M100.2200 ####[facility] [address] [place], [address] Carbon dioxide, total [Moles /volume] in Central venous bloodOrdered By: Vincent Flores on 02-27-2025 CO2 [Moles/Vol] 25.4 mmol/L Normal 21.0-32.0 [facility] Comment on above: Performed By: #### L 500.4050, L503.7505, L501.9520, L400.0001, L100.0100, M100.2200 ####[facility] [address] [place], [address] Chloride assayOrdered By: Ishmael Flores on 02-27-2025 Chloride [Moles/Vol] 90 mmol/L Low 98-108 [facility] Comment on above: Performed By: #### L 500.4050, L503.7505, L501.9520, L400.0001, L100.0100, M100.2200 ####[facility] [address] [place], [address] Comprehensive Metabolic Prof ilon 02-27-2025 ALK PHOS 123 U/L High 35-104 [facility] Comment on above: Performed By: #### L 500.4050, L503.7505, L501.9520, L400.0001, L100.0100, M100.2200 ####[facility] [address] [place], [address] AST [Catalytic activity/Vol] 50 U/L High <=31 [facility] Comment on above: Performed By: #### L 500.4050, L503.7505, L501.9520, L400.0001, L100.0100, M100.2200 ####[facility] [address] [place], [address] BUN/CRE 56.8 RATIO High 10-20 [facility] Comment on above: Performed By: #### L 500.4050, L503.7505, L501.9520, L400.0001, L100.0100, M100.2200 ####[facility] [address] [place], [address] GAP 18 High 5-15 [facility] Comment on above: Performed By: #### L 500.4050, L503.7505, L501.9520, L400.0001, L100.0100, M100.2200 ####[facility] [address] [place], [address] Potassium [Moles/Vol] 3.6 mmol/L Normal 3.3-5.[address] [facility] Comment on above: Performed By: #### L 500.4050, L503.7505, L501.9520, L400.0001, L100.0100, M100.2200 ####[facility] [address] [place], [address] T PROT 7.5 g/dL Normal 5.9-8.4 [facility] Comment on above: Performed By: #### L 500.4050, L503.7505, L501.9520, L400.0001, L100.0100, M100.2200 ####[facility] [address] [place], [address] Eosinophil percentageOrdered By: Vincent Mark on 02-27-2025 Eosinophils/100 WBC (Bld) 1.0 % 0-5 [facility] Erythrocyte distribution wid th ratioOrdered By: Vincent Flores on 02-27-2025 Erythrocyte distribution width (RBC) [Ratio] 24.3 % High 11.6-14.6 [facility] Erythrocyte distribution wid th standard deviationOrdered By: [facility] on 02-27-2025 Erythrocyte distribution width (RBC) [Ratio] 76.4 fl High 35.1-43.9 [facility] Glomerular filtration rate ( GFR) estimation/1.73 sq m using serum, plasma, or whole bOrdered By: Vincent Flores on 02-27-2025 GFR/1.73 sq M.predicted among non-blacks MDRD (S/P/Bld) [Vol rate/Area] 27 mL/min/{1.73_m2} Low >60 [facility] Comment on above: Result Comment: mL/m in/1.73m2 CKD-EPI Creatinine Equation (2020) Performed By: #### L 500.4050, L503.7505, L501.9520, L400.0001, L100.0100, M100.2200 ####[facility] [address] [place], [place], [id number] Hematocrit Auto (Bld) [Volum e fraction]Ordered By: Vincent Flores on 02-27-2025 Hematocrit (Bld) [Volume fraction] 26.0 % Low 37-47 [facility] Hemoglobin measurementOrdere d By: Vincent Flores on 02-27-2025 Hemoglobin (Bld) [Mass/Vol] 8.4 g/dL Low 12.0-15.0 [facility] Immature granulocytes/100 WB C Auto (Bld)Ordered By: Vincent Flores 02-27-2025 Immature granulocytes/100 WBC (Bld) 0.300 % 0.0-0.9 [facility] Ketones Test strip Ql (U)Ord ered By: Vincent Flores 02-27-2025 Ketones Ql (U) Negative Negative [facility] MCV (mean corpuscular volume ) determinationOrdered By: Vincent Flores 02-27-2025 MCV (RBC) [Entitic vol] 87.5 fL 81-99 [facility] Mean corpuscular hemoglobin (MCH) determinationOrdered By: Vincent Flores 02-27-2025 MCH (RBC) [Entitic mass] 28.3 pg 27.0-32.0 [facility] Monocyte percentageOrdered B y: Vincent Flores on 02-27-2025 Monocytes/100 WBC (Bld) 11.7 % High 0-10 [facility] Mucus LM Ql (Urine sed)Order ed By: Vincent Flores on 02-27-2025 Mucus Ql (Urine sed) 0 SEEN /hpf [facility] Natriuretic peptide.B prohor daria N-Terminal [Mass/volume] in Serum or PlasmaOrdered By: Vincent Flores on 02-27-2025 Natriuretic peptide.B prohormone N-Terminal [Mass/Vol] 9003 pg/mL High <1800 [facility] Neutrophil percentageOrdered By: Vincent Flores on 02-27-2025 Neutrophils/100 WBC (Bld) 66.9 % 47-70 [facility] Nitrite Test strip Ql (U)Ord ered By: Vincent Flores on 02-27-2025 Nitrite Ql (U) Negative Negative [facility] No Panel InformationOrdered By: Vincent Flores on 02-27-2025 2+ [facility] 50 U/L High <32 [facility] Platelet countOrdered By: Ishmael Flores on 02-27-2025 Platelets (Bld) [#/Vol] 181 10*3/uL 150-450 [facility] Potassium measurement (mass/ volume)Ordered By: Vincent Flores on 02-27-2025 Potassium (Unsp spec) [Mass/Vol] 3.6 mmol/L 3.3-5.1 [facility] Pro- Brain NATRIURETIC PEPTI Drew 02-27-2025 Natriuretic peptide B (Bld) [Mass/Vol] 9003 pg/mL High <=1800 [facility] Comment on above: Result Comment: Hear t Failure Unlikely: < 300 pg/mLHeart Failure Likely< 50 Years: > 450 pg/mL50-75 Years: > 900 pg/mL>75 Years: > 1800 pg/mL Performed By: #### L 500.4050, L503.7505, L501.9520, L400.0001, L100.0100, M100.2200 ####[facility] [address] [place], [address] Protein Test strip Ql (U)Ord ered By: Vincent Flores on 02-27-2025 Protein Ql (U) 30 mg/dl High Negative [facility] RBC Auto (Bld) [#/Vol]Ordere d By: Vincent Flores on 02-27-2025 RBC (Bld) [#/Vol] 2.97 10*6/uL Low 4.2-5.[address] [facility] Serum creatinine measurement (mass/volume)Ordered By: Vincent Flores on 02-27-2025 Creatinine [Mass/Vol] 1.90 mg/dL High 0.70-1.[address] [facility] Comment on above: Performed By: #### L 500.4050, L503.7505, L501.9520, L400.0001, L100.0100, M100.2200 ####[facility] [address] [place], [address] Serum globulin measurementOr dered By: Vincent Flores on 02-27-2025 Globulin (S) [Mass/Vol] 3.4 g/dL Normal 2.2-4.2 [facility] Comment on above: Performed By: #### L 500.4050, L503.7505, L501.9520, L400.0001, L100.0100, M100.2200 ####[facility] [address] [place], [address] Serum glucose measurement (m ass/volume)Ordered By: Vincent Flores on 02-27-2025 Glucose [Mass/Vol] 290 mg/dL High 70-99 [facility] Comment on above: Performed By: #### L 500.4050, L503.7505, L501.9520, L400.0001, L100.0100, M100.2200 ####[facility] [address] [place], [address] Serum or plasma alanine craven otransferase (ALT) measurementOrdered By: Vincent Flores on 02-27-2025 ALT [Catalytic activity/Vol] 33 U/L Normal <=34 [facility] Comment on above: Performed By: #### L 500.4050, L503.7505, L501.9520, L400.0001, L100.0100, M100.2200 ####[facility] [address] [place], [address] Serum or plasma albumin bijan urement (mass/volume)Ordered By: Vincent Flores on 02-27-2025 Albumin [Mass/Vol] 4.1 g/dL Normal 3.4-4.8 [facility] Comment on above: Performed By: #### L 500.4050, L503.7505, L501.9520, L400.0001, L100.0100, M100.2200 ####[facility] [address] [place], [address] Serum or plasma albumin/glob ulin mass ratioOrdered By: Vincent Flores on 02-27-2025 Albumin/Globulin [Mass ratio] 1.2 {ratio} Normal 0.9-2.4 [facility] Comment on above: Performed By: #### L 500.4050, L503.7505, L501.9520, L400.0001, L100.0100, M100.2200 ####[facility] [address] [place], [address] Serum or plasma alkaline da sphatase measurementOrdered By: Vincent Flores on 02-27-2025 ALP [Catalytic activity/Vol] 123 U/L High 35-104 [facility] Serum or plasma calcium bijan urement (mass/volume)Ordered By: Vincent Flores on 02-27-2025 Calcium [Mass/Vol] 9.9 mg/dL Normal 7.6-11.0 [facility] Comment on above: Performed By: #### L 500.4050, L503.7505, L501.9520, L400.0001, L100.0100, M100.2200 ####[facility] [address] [place], [address] Serum or plasma urea nitroge n measurement (mass/volume)Ordered By: Vincent Flores on 02-27-2025 Urea nitrogen [Mass/Vol] 108 mg/dL Invalid Interpretation Code 10-21 [facility] Comment on above: Result Comment: Crit ical Result(s) Called at: by: DR. FLORES??Results readback by same. Performed By: #### L 500.4050, L503.7505, L501.9520, L400.0001, L100.0100, M100.2200 ####[facility] [address] [place], [place], [address] Sodium levelOrdered By: Vinecnt Flores on 02-27-2025 Sodium [Moles/Vol] 134 mmol/L Normal 133-145 [facility] Comment on above: Performed By: #### L 500.4050, L503.7505, L501.9520, L400.0001, L100.0100, M100.2200 ####[facility] [address] [place], [address] Squamous epithelial cells de tection in urine sediment by light microscopyOrdered By: Vincent Flores on 02-27-2025 Epithelial cells.squamous LM Ql (Urine sed) 0 SEEN /hpf 5-10 [facility] TSH DL <= 0.005 mIU/L QnOrde red By: Vincent Flores on 02-27-2025 TSH Qn 3.010 uIU/mL 0.300-4.200 [facility] Thyroid Stim Hormone (TSH)on 02-27-2025 TSH 3.010 uIU/mL Normal 0.300-4.200 [facility] Comment on above: Performed By: #### L 500.4050, L503.7505, L501.9520, L400.0001, L100.0100, M100.2200 ####[facility] [address] [place], [place], [address] Total proteinOrdered By: Vincent Flores on 02-27-2025 Protein [Mass/Vol] 7.5 g/dL 5.9-8.4 [facility] Urinalysis, Completeon 02-27 EPI,RENAL 0-5 SEEN Normal 0-5 [facility] Comment on above: Order Comment: Urine , Random Performed By: #### L 500.4050, L503.7505, L501.9520, L400.0001, L100.0100, M100.2200 ####[facility] [address] [place], [address] BACTERIA 0 SEEN Normal None Seen [facility] Comment on above: Order Comment: Urine , Random Performed By: #### L 500.4050, L503.7505, L501.9520, L400.0001, L100.0100, M100.2200 ####[facility] [address] [place], [address] EPI,SQUAMOUS 0 SEEN Normal 5-10 [facility] Comment on above: Order Comment: Urine , Random Performed By: #### L 500.4050, L503.7505, L501.9520, L400.0001, L100.0100, M100.2200 ####[facility] [address] [place], [address] Mucus Ql (Urine sed) 0 SEEN Normal [facility] Comment on above: Order Comment: Urine , Random Performed By: #### L 500.4050, L503.7505, L501.9520, L400.0001, L100.0100, M100.2200 ####[facility] [address] [place], [address] RBC 0 SEEN Normal 0-5 [facility] Comment on above: Order Comment: Urine , Random Performed By: #### L 500.4050, L503.7505, L501.9520, L400.0001, L100.0100, M100.2200 ####[facility] [address] [place], [address] WBC 0 SEEN Normal 0-5 [facility] Comment on above: Order Comment: Urine , Random Performed By: #### L 500.4050, L503.7505, L501.9520, L400.0001, L100.0100, M100.2200 ####[facility] [address] [place], [address] Urine clarityOrdered By: Vincent Flores on 02-27-2025 Clarity (U) Sl. Cloudy Clear [facility] Urine color determinationOrd ered By: Vincent Flores on 02-27-2025 Color (U) Yellow Yellow [facility] Urine cultureOrdered By: Vincent Flores on 02-27-2025 Bacteria identified Cx Nom (U) ESBL Escherichia coli Abnormal [facility] Bacteria identified Cx Nom (U) ESBL Escherichia coli Abnormal [facility] Urine glucose detectionOrder ed By: Vincent Flores on 02-27-2025 Glucose Ql (U) Normal mg/dl Normal [facility] Urine leukocyte esterase det ection by dipstickOrdered By: Vincent Flores on 02-27-2025 Leukocyte esterase Test strip Ql (U) Negative Negative [facility] Urine pHOrdered By: Vincent Flores on 02-27-2025 pH (U) 6.5 [pH] 5.0 - 8.0 [facility] Urine sediment bacteria coun t by microscopy (number/high power field)Ordered By: Vincent Flores on 02-27-2025 Bacteria LM.HPF (Urine sed) [#/Area] 0 /[HPF] None Seen [facility] Urine sediment renal epithel ial cell count by microscopy (number/high power field)Ordered By: Vincent Flores on 02-27-2025 Epithelial cells.renal LM.HPF (Urine sed) [#/Area] 0 /[HPF] 0-5 [facility] Urine specific gravity measu rementOrdered By: Vincent Flores on 02-27-2025 Specific gravity (U) [Rel density] 1.010 1.002-1.030 [facility] Urine urobilinogen measureme ntOrdered By: Vincent Flores on 02-27-2025 Urobilinogen Ql (U) Normal mg/dl Normal [facility] White blood cell (WBC) count Ordered By: Vincent Flores on 02-27-2025 WBC (Bld) [#/Vol] 7.0 10*3/uL 4.4-11.0 [facility] White blood cell countOrdere d By: Vincent Flores on 02-27-2025 White blood cell count 0 SEEN /hpf 0-5 [facility] Absolute lymphocyte countOrd ered By: Vincent Flores on 02-21-2025 Lymphocytes Auto (Unsp spec) [#/Vol] 1.96 10*3/uL 0.83-4.51 [facility] Anion gap in Serum or Plasma Ordered By: Vincent Flores on 02-21-2025 Anion gap [Moles/Vol] 18 mmol/L High 5-[address] [facility] Automated lymphocyte count a s percentage of total leukocytesOrdered By: Vincent Flores on 02-21-2025 Lymphocytes/100 WBC Auto (Unsp spec) 27.8 % 19-41 [facility] BUN/creatinine ratioOrdered By: Vincent Flores on 02-21-2025 Urea nitrogen/Creatinine [Mass ratio] 44.3 mg/mg High 04-23 [facility] Basic Metabolic Profile (BMP )on 02-21-2025 BUN/CRE 44.3 RATIO High 04-23 [facility] Comment on above: Performed By: #### L 500.2500, L503.7505, L100.0100 ####[facility] [address] [place], [address] Calcium [Mass/Vol] 9.6 mg/dL Normal 7.6-11.0 [facility] Comment on above: Performed By: #### L 500.2500, L503.7505, L100.0100 ####[facility] [address] [place], [address] Chloride [Moles/Vol] 89 mmol/L Low 98-108 [facility] Comment on above: Performed By: #### L 500.2500, L503.7505, L100.0100 ####[facility] [address] [place], [address] CO2 [Moles/Vol] 26.5 mmol/L Normal 21.0-32.0 [facility] Comment on above: Performed By: #### L 500.2500, L503.7505, L100.0100 ####[facility] [address] [place], [address] Creatinine [Mass/Vol] 1.98 mg/dL High 0.70-1.[address] [facility] Comment on above: Performed By: #### L 500.2500, L503.7505, L100.0100 ####[facility] [address] [place], [address] GAP 18 High 5-15 [facility] Comment on above: Performed By: #### L 500.2500, L503.7505, L100.0100 ####[facility] [address] [place], [address] GFR/1.73 sq M.predicted among non-blacks MDRD (S/P/Bld) [Vol rate/Area] 25 mL/min/{1.73_m2} Low >60 [facility] Comment on above: Result Comment: mL/m in/1.73m2 CKD-EPI Creatinine Equation (2020) Performed By: #### L 500.2500, L503.7505, L100.0100 ####[facility] [address] [place], [address] Glucose [Mass/Vol] 118 mg/dL High 70-99 [facility] Comment on above: Performed By: #### L 500.2500, L503.7505, L100.0100 ####[facility] [address] [place], [address] Potassium [Moles/Vol] 3.2 mmol/L Low 3.3-5.[address] [facility] Comment on above: Performed By: #### L 500.2500, L503.7505, L100.0100 ####[facility] [address] [place], [address] Sodium [Moles/Vol] 133 mmol/L Normal 133-145 [facility] Comment on above: Performed By: #### L 500.2500, L503.7505, L100.0100 ####[facility] [address] [place], [address] Urea nitrogen [Mass/Vol] 88 mg/dL High 4-19 [facility] Comment on above: Performed By: #### L 500.2500, L503.7505, L100.0100 ####[facility] [address] [place], [address] Basophil percentageOrdered B y: Vincent Flores on 02-21-2025 Basophils/100 WBC (Bld) 0.8 % 0-1 [facility] Blood manual differential co mment interpretation (narrative result)Ordered By: Vincent Flores on 02-21-2025 Manual differential comment Cristhian (Bld) [Interp] SCANNED [facility] Blood polychromasia detectio n by light microscopyOrdered By: Vincent Flores on 02-21-2025 Polychromasia LM Ql (Bld) 1+ [facility] CBC W/Diff, Automatedon 02-03 HYPOCHROMASIA 1+ Normal [facility] Comment on above: Performed By: #### L 500.2500, L503.7505, L100.0100 ####[facility] [address] [place], [address] Anisocytosis Ql (Bld) 2+ Normal [facility] Comment on above: Performed By: #### L 500.2500, L503.7505, L100.0100 ####[facility] [address] [place], [address] PLT EST ADEQUATE Normal ADEQ [facility] Comment on above: Performed By: #### L 500.2500, L503.7505, L100.0100 ####[facility] [address] [place], [address] POLYCHROMASIA 1+ Normal [facility] Comment on above: Performed By: #### L 500.2500, L503.7505, L100.0100 ####[facility] [address] [place], [address] SMEAR COMMENT SCANNED Normal [facility] Comment on above: Performed By: #### L 500.7552, L503.750, L100.0100 ####[facility] [address] [place], [address] Carbon dioxide, total [Moles /volume] in Central venous bloodOrdered By: Vincent Flores on 02-21-2025 CO2 [Moles/Vol] 26.5 mmol/L 21.0-32.0 [facility] Chloride assayOrdered By: Ishmael Flores on 02-21-2025 Chloride [Moles/Vol] 89 mmol/L Low 98-108 [facility] Eosinophil percentageOrdered By: Vincent Flores 02-21-2025 Eosinophils/100 WBC (Bld) 1.4 % 0-5 [facility] Erythrocyte distribution wid th ratioOrdered By: Vincent Flores on 02-21-2025 Erythrocyte distribution width (RBC) [Ratio] 23.6 % High 11.6-14.6 [facility] Erythrocyte distribution wid th standard deviationOrdered By: Vincent Flores on 02-21-2025 Erythrocyte distribution width (RBC) [Ratio] 73.1 fl High 35.1-43.9 [facility] Glomerular filtration rate ( GFR) estimation/1.73 sq m using serum, plasma, or whole bOrdered By: Vincent Flroes on 02-21-2025 GFR/1.73 sq M.predicted among non-blacks MDRD (S/P/Bld) [Vol rate/Area] 25 mL/min/{1.73_m2} Low >60 [facility] Hematocrit Auto (Bld) [Volum e fraction]Ordered By: Vincent Flores on 02-21-2025 Hematocrit (Bld) [Volume fraction] 31.5 % Low 37-47 [facility] Hemoglobin measurementOrdere d By: Vincent Flores 02-21-2025 Hemoglobin (Bld) [Mass/Vol] 10.1 g/dL Low 12.0-15.0 [facility] Hypochromatic red blood cell detectionOrdered By: Vincent Flores on 02-21-2025 Hypochromia Ql (Bld) 1+ [facility] Immature granulocytes/100 WB C Auto (Bld)Ordered By: Vincent Flores on 02-21-2025 Immature granulocytes/100 WBC (Bld) 0.300 % 0.0-0.9 [facility] MCV (mean corpuscular volume ) determinationOrdered By: Vincent Flores on 02-21-2025 MCV (RBC) [Entitic vol] 86.3 fL 81-99 [facility] Mean corpuscular hemoglobin (MCH) determinationOrdered By: Vincent Flores on 02-21-2025 MCH (RBC) [Entitic mass] 27.7 pg 27.0-32.0 [facility] Monocyte percentageOrdered B y: Vincent Flores on 02-21-2025 Monocytes/100 WBC (Bld) 14.3 % High 0-10 [facility] Natriuretic peptide.B prohor daria N-Terminal [Mass/volume] in Serum or PlasmaOrdered By: Vincent Flores on 02-21-2025 Natriuretic peptide.B prohormone N-Terminal [Mass/Vol] 56194 pg/mL High <1800 [facility] Neutrophil percentageOrdered By: Vincent Flores on 02-21-2025 Neutrophils/100 WBC (Bld) 55.4 % 47-70 [facility] No Panel InformationOrdered By: Vincent Flores on 02-21-2025 2+ [facility] Platelet countOrdered By: Ishmael Flores on 02-21-2025 Platelets (Bld) [#/Vol] 170 10*3/uL 150-450 [facility] Platelet estimateOrdered By: Vincent Flores on 02-21-2025 Platelets LM Ql (Bld) ADEQUATE ADEQ [facility] Potassium measurement (mass/ volume)Ordered By: Vincent Flores on 02-21-2025 Potassium (Unsp spec) [Mass/Vol] 3.2 mmol/L Low 3.3-5.1 [facility] Pro- Brain NATRIURETIC PEPTI Drew 02-21-2025 Natriuretic peptide B (Bld) [Mass/Vol] 89062 pg/mL High <=1800 [facility] Comment on above: Result Comment: Hear t Failure Unlikely: < 300 pg/mLHeart Failure Likely< 50 Years: > 450 pg/mL50-75 Years: > 900 pg/mL>75 Years: > 1800 pg/mL Performed By: #### L 500.2500, L503.7505, L100.0100 ####[facility] [address] [place], [address] RBC Auto (Bld) [#/Vol]Ordere d By: Vincent Flores on 02-21-2025 RBC (Bld) [#/Vol] 3.65 10*6/uL Low 4.2-5.[address] [facility] Serum creatinine measurement (mass/volume)Ordered By: Vincent Flores on 02-21-2025 Creatinine [Mass/Vol] 1.98 mg/dL High 0.70-1.[address] [facility] Serum glucose measurement (m ass/volume)Ordered By: Vincent Flores on 02-21-2025 Glucose [Mass/Vol] 118 mg/dL High 70-99 [facility] Serum or plasma calcium bijan urement (mass/volume)Ordered By: Vincent Flores on 02-21-2025 Calcium [Mass/Vol] 9.6 mg/dL 7.6-11.0 [facility] Serum or plasma urea nitroge n measurement (mass/volume)Ordered By: Vincent Flores on 02-21-2025 Urea nitrogen [Mass/Vol] 88 mg/dL High 4-19 [facility] Sodium levelOrdered By: Vincent Flores on 02-21-2025 Sodium [Moles/Vol] 133 mmol/L 133-145 [facility] White blood cell (WBC) count Ordered By: Vincent Flores on 02-21-2025 WBC (Bld) [#/Vol] 7.1 10*3/uL 4.4-11.0 [facility] 12 Lead EKGon 02-16-2025 12 Lead EKG Normal [facility] Absolute lymphocyte countOrd ered By: Magdy Pang on 02-16-2025 Lymphocytes Auto (Unsp spec) [#/Vol] 1.41 10*3/uL 0.83-4.51 [facility] Absolute neutrophil countOrd ered By: Magdy Pang on 02-16-2025 Neutrophils (Bld) [#/Vol] 3.7 10*3/uL 2.0-7.7 [facility] Anion gap in Serum or Plasma Ordered By: Magdy Pang on 02-16-2025 Anion gap [Moles/Vol] 15 mmol/L - [facility] Automated lymphocyte count a s percentage of total leukocytesOrdered By: Magdy Pang on 02-16-2025 Lymphocytes/100 WBC Auto (Unsp spec) 23.2 % [facility] BUN/creatinine ratioOrdered By: Magdy Pang on 02-16-2025 Urea nitrogen/Creatinine [Mass ratio] 33.4 mg/mg High 04-23 [facility] Basic Metabolic Profile (BMP )on 02-16-2025 BUN/CRE 33.4 RATIO High 04-23 [facility] Comment on above: Performed By: #### L 500.2500, L503.7505, L100.0100, L501.4021 ####[facility] [address] [place], [address] Calcium [Mass/Vol] 9.5 mg/dL Normal 7.6-11.0 [facility] Comment on above: Performed By: #### L 500.2500, L503.7505, L100.0100, L501.4021 ####[facility] [address] [place], [address] Chloride [Moles/Vol] 92 mmol/L Low 98-108 [facility] Comment on above: Performed By: #### L 500.2500, L503.7505, L100.0100, L501.4021 ####[facility] [address] [place], [address] CO2 [Moles/Vol] 23.9 mmol/L Normal 21.0-32.0 [facility] Comment on above: Performed By: #### L 500.2500, L503.7505, L100.0100, L501.4021 ####[facility] [address] [place], [address] Creatinine [Mass/Vol] 2.04 mg/dL High 0.70-1.[address] [facility] Comment on above: Performed By: #### L 500.2500, L503.7505, L100.0100, L501.4021 ####[facility] [address] [place], [address] ECRCL 20.45 ml/min Low 50-250 [facility] Comment on above: Performed By: #### L 500.2500, L503.7505, L100.0100, L501.4021 ####[facility] [address] [place], [address] GAP 15 Normal 5-15 [facility] Comment on above: Performed By: #### L 500.2500, L503.7505, L100.0100, L501.4021 ####[facility] [address] [place], [address] GFR/1.73 sq M.predicted among non-blacks MDRD (S/P/Bld) [Vol rate/Area] 24 mL/min/{1.73_m2} Low >60 [facility] Comment on above: Result Comment: mL/m in/1.73m2 CKD-EPI Creatinine Equation (2020) Performed By: #### L 500.2500, L503.7505, L100.0100, L501.4021 ####[facility] [address] [place], [address] Glucose [Mass/Vol] 129 mg/dL High 70-99 [facility] Comment on above: Performed By: #### L 500.2500, L503.7505, L100.0100, L501.4021 ####[facility] [address] [place], [address] Potassium [Moles/Vol] 3.9 mmol/L Normal 3.3-5.[address] [facility] Comment on above: Performed By: #### L 500.2500, L503.7505, L100.0100, L501.4021 ####[facility] [address] [place], [address] Sodium [Moles/Vol] 131 mmol/L Low 133-145 [facility] Comment on above: Performed By: #### L 500.2500, L503.7505, L100.0100, L501.4021 ####[facility] [address] [place], [address] Urea nitrogen [Mass/Vol] 68 mg/dL High 4-19 [facility] Comment on above: Performed By: #### L 500.2500, L503.7505, L100.0100, L501.4021 ####[facility] [address] [place], [address] Basophil percentageOrdered B y: Magdy Pang on 02-16-2025 Basophils/100 WBC (Bld) 1.0 % 0-1 [facility] Blood manual differential co mment interpretation (narrative result)Ordered By: Magdy Pang on 02-16-2025 Manual differential comment Cristhian (Bld) [Interp] SCANNED [facility] Blood polychromasia detectio n by light microscopyOrdered By: Magdy Pang on 02-16-2025 Polychromasia LM Ql (Bld) 1+ [facility] CBC W/Diff, Automatedon 02-02 HYPOCHROMASIA 1+ Normal [facility] Comment on above: Performed By: #### L 500.2500, L503.7505, L100.0100, L501.4021 ####[facility] [address] [place], [address] POLYCHROMASIA 1+ Normal [facility] Comment on above: Performed By: #### L 500.2500, L503.7505, L100.0100, L501.4021 ####[facility] [address] [place], [address] Anisocytosis Ql (Bld) 2+ Normal [facility] Comment on above: Performed By: #### L 500.2500, L503.7505, L100.0100, L501.4021 ####[facility] [address] [place], [address] PLT EST SLT DEC Normal ADEQ [facility] Comment on above: Performed By: #### L 500.2500, L503.7505, L100.0100, L501.4021 ####[facility] [address] [place], [address] SMEAR COMMENT SCANNED Normal [facility] Comment on above: Performed By: #### L 500.2500, L503.7505, L100.0100, L501.4021 ####[facility] [address] [place], [address] Carbon dioxide, total [Moles /volume] in Central venous bloodOrdered By: Magdy Pang on 02-16-2025 CO2 [Moles/Vol] 23.9 mmol/L 21.0-32.0 [facility] Chest PA and Lateralon 02-16 Chest PA and Lateral Normal [facility] Chloride assayOrdered By: Rancho Pang on 02-16-2025 Chloride [Moles/Vol] 92 mmol/L Low 98-108 [facility] Emergency Department Summary on 02-16-2025 Emergency Department Summary Normal [facility] Eosinophil percentageOrdered By: Magdy Pang on 02-16-2025 Eosinophils/100 WBC (Bld) 1.2 % 0-5 [facility] Erythrocyte distribution wid th ratioOrdered By: Magdy Pang on 02-16-2025 Erythrocyte distribution width (RBC) [Ratio] 24.4 % High 11.6-14.6 [facility] Erythrocyte distribution wid th standard deviationOrdered By: Magdy Pang on 02-16-2025 Erythrocyte distribution width (RBC) [Ratio] 76.4 fl High 35.1-43.9 [facility] Glomerular filtration rate ( GFR) estimation/1.73 sq m using serum, plasma, or whole bOrdered By: Magdy Pang on 02-16-2025 GFR/1.73 sq M.predicted among non-blacks MDRD (S/P/Bld) [Vol rate/Area] 24 mL/min/{1.73_m2} Low >60 [facility] Comment on above: mL/min/1.73m2 CKD-EP I Creatinine Equation (2020) Hematocrit Auto (Bld) [Volum e fraction]Ordered By: Magdy Pang on 02-16-2025 Hematocrit (Bld) [Volume fraction] 32.2 % Low 37-47 [facility] Hemoglobin measurementOrdere d By: Magdy Pang on 02-16-2025 Hemoglobin (Bld) [Mass/Vol] 10.3 g/dL Low 12.0-15.0 [facility] Hypochromatic red blood cell detectionOrdered By: Magdy Pang on 02-16-2025 Hypochromia Ql (Bld) 1+ [facility] Immature granulocytes/100 WB C Auto (Bld)Ordered By: Magdy Pang on 02-16-2025 Immature granulocytes/100 WBC (Bld) 0.300 % 0.0-0.9 [facility] Comment on above: IG% - Immature Granu locytes (promyelocytes, myelocytes and metamyelocytes) > 1% indicates that a LEFT SHIFT is Present. L501.4021on 02-16-2025 Trop T High Sen 94 ng/L Invalid Interpretation Code <=14 [facility] Comment on above: Result Comment: Crit ical Result(s) Called at 1447: by: JOSH MARI. ??Results read back by same. Performed By: #### L 500.2500, L503.7505, L100.0100, L501.4021 ####[facility] [address] [place], [place], [address] Laboratory - Hematology and Cell countsOrdered By: Magdy Pang on 02-16-2025 Anisocytosis Ql (Bld) 2+ [facility] MCV (mean corpuscular volume ) determinationOrdered By: Magdy Pang on 02-16-2025 MCV (RBC) [Entitic vol] 87.0 fL 81-99 [facility] Mean corpuscular hemoglobin (MCH) determinationOrdered By: Magdy Pang on 02-16-2025 MCH (RBC) [Entitic mass] 27.8 pg 27.0-32.0 [facility] Mean corpuscular hemoglobin concentration (MCHC) determinationOrdered By: Magdy Pang on 02-16-2025 MCHC (RBC) [Mass/Vol] 32.0 g/dL 32-[address] [facility] Mean platelet volume determi nationOrdered By: Magdy Pang on 02-16-2025 Platelet mean volume (Bld) [Entitic vol] 9.5 fL 6.2-12.0 [facility] Monocyte percentageOrdered B y: Magdy Pang on 02-16-2025 Monocytes/100 WBC (Bld) 13.7 % High 0-10 [facility] Natriuretic peptide.B prohor daria N-Terminal [Mass/volume] in Serum or PlasmaOrdered By: Magdy Pang on 02-16-2025 Natriuretic peptide.B prohormone N-Terminal [Mass/Vol] 43349 pg/mL High <1800 [facility] Comment on above: Heart Failure Unlike ly: < 300 pg/mLHeart Failure Likely< 50 Years: > 450 pg/mL50-75 Years: > 900 pg/mL>75 Years: > 1800 pg/mL Neutrophil percentageOrdered By: Magdy Pang on 02-16-2025 Neutrophils/100 WBC (Bld) 60.6 % 47-70 [facility] No Panel InformationOrdered By: Magdy Pang on 02-16-2025 2+ [facility] Nucleated red blood cell per centageOrdered By: Magdy Pang on 02-16-2025 Nucleated RBC/100 WBC (Bld) [Ratio] 0 % 0-5 [facility] Platelet countOrdered By: Rancho Pang on 02-16-2025 Platelets (Bld) [#/Vol] 139 10*3/uL Low 150-450 [facility] Platelet estimateOrdered By: Magdy Pang on 02-16-2025 Platelets LM Ql (Bld) SLT DEC ADEQ [facility] Potassium measurement (mass/ volume)Ordered By: Magdy Pang on 02-16-2025 Potassium (Unsp spec) [Mass/Vol] 3.9 mmol/L 3.3-5.1 [facility] Pro- Brain NATRIURETIC PEPTI Drew 02-16-2025 Natriuretic peptide B (Bld) [Mass/Vol] 23566 pg/mL High <=1800 [facility] Comment on above: Result Comment: Hear t Failure Unlikely: < 300 pg/mLHeart Failure Likely< 50 Years: > 450 pg/mL50-75 Years: > 900 pg/mL>75 Years: > 1800 pg/mL Performed By: #### L 500.2500, L503.7505, L100.0100, L501.4021 ####[facility] [address] [place], [address] RBC Auto (Bld) [#/Vol]Ordere d By: Magdy Pang on 02-16-2025 RBC (Bld) [#/Vol] 3.70 10*6/uL Low 4.2-5.[address] [facility] Serum creatinine measurement (mass/volume)Ordered By: Magdy Pang on 02-16-2025 Creatinine [Mass/Vol] 2.04 mg/dL High 0.70-1.[address] [facility] Serum glucose measurement (m ass/volume)Ordered By: Magdy Pang on 02-16-2025 Glucose [Mass/Vol] 129 mg/dL High 70-99 [facility] Serum or plasma calcium bijan urement (mass/volume)Ordered By: Magdy Pang on 02-16-2025 Calcium [Mass/Vol] 9.5 mg/dL 7.6-11.0 [facility] Serum or plasma urea nitroge n measurement (mass/volume)Ordered By: Magdy Pang on 02-16-2025 Urea nitrogen [Mass/Vol] 68 mg/dL High 4-19 [facility] Sodium levelOrdered By: Magdy Pang on 02-16-2025 Sodium [Moles/Vol] 131 mmol/L Low 133-145 [facility] Troponin T HS 2 HRon 025 Trop T High Sen 88 ng/L Invalid Interpretation Code <=14 [facility] Comment on above: Result Comment: Crit ical Result(s) Called at 1627: by: JOSH TREJO. ??Results read back by same. Performed By: #### L 499.0042 ####[facility] [address] [place], [address] Troponin T HS 4 HRon 025 Trop T High Sen Normal <=14 [facility] Comment on above: Result Comment: JENARO ENT DISCHARGED Performed By: #### L 499.0043 ####[facility] [address], [address] Troponin T.cardiac [Mass/vol ume] in Serum or Plasma by High sensitivity methodOrdered By: Magdy Pang on 02-16-2025 Troponin T.cardiac High sensitivity method [Mass/Vol] 88 ng/L Critically high <14 [facility] Comment on above: Critical Result(s) C alled at 1627: by: JOSH WORKMAN TO MARTA. Results read back by same. Troponin T.cardiac High sensitivity method [Mass/Vol] 94 ng/L Critically high <14 [facility] Comment on above: Delta: 71 on 5-1300Critical Result(s) Called at 1447: by: JOSH WORKMAN TO LIN. Results read back by same. White blood cell (WBC) count Ordered By: Magdy Pang on 02-16-2025 WBC (Bld) [#/Vol] 6.1 10*3/uL 4.4-11.0 [facility] CRP, High Sensitivity [id number] on 02-15-2025 CRP, HIGH SENS 41.42 mg/L High 0.00-3.00 [facility] Comment on above: Result Comment: Resu lts confirmed ondilution. Relative Risk for Future Cardiovascular Event Low <1.00 Average 1.00 - 3.00 High >3.00Performed at: - [facility] [id number] Director: Chuy Rizvi PhD, Phone: [phone] Performed By: #### L 101.9900, L501.9520, L501.7300, L100.0100, L501.7400, L500.4050, L501.5500, L3100.9470 ####[facility] [address] [place], [address] Absolute lymphocyte countOrd ered By: Vincent Flores on 02-13-2025 Lymphocytes Auto (Unsp spec) [#/Vol] 1.58 10*3/uL 0.83-4.51 [facility] Absolute neutrophil countOrd ered By: Vincent Flores on 02-13-2025 Neutrophils (Bld) [#/Vol] 5.1 10*3/uL 2.0-7.7 [facility] Anion gap in Serum or Plasma Ordered By: Vincent Flores on 02-13-2025 Anion gap [Moles/Vol] 17 mmol/L High 5-[address] [facility] Automated lymphocyte count a s percentage of total leukocytesOrdered By: Vincent Flores on 02-13-2025 Lymphocytes/100 WBC Auto (Unsp spec) 20.6 % 19-41 [facility] BUN/creatinine ratioOrdered By: Vincent Flores on 02-13-2025 Urea nitrogen/Creatinine [Mass ratio] 27.4 mg/mg High 10-20 [facility] Basophil percentageOrdered B y: Vincent Flores on 02-13-2025 Basophils/100 WBC (Bld) 0.7 % 0-1 [facility] Bilirubin, totalOrdered By: Vincent Flores on 02-13-2025 Bilirubin [Mass/Vol] 1.18 mg/dL 0.00-1.30 [facility] Blood manual differential co mment interpretation (narrative result)Ordered By: Vincent Flores on 02-13-2025 Manual differential comment Cristhian (Bld) [Interp] SCANNED [facility] Blood polychromasia detectio n by light microscopyOrdered By: Vincent Flores on 02-13-2025 Polychromasia LM Ql (Bld) 1+ [facility] C-reactive protein measureme nt by high sensitivity methodOrdered By: Vincent Flores on 02-13-2025 C-reactive protein measurement by high sensitivity method 41.42 mg/L High 0.00-3.00 [facility] Comment on above: Results confirmed on dilution. Relative Risk for Future Cardiovascular Event Low <1.00 Average 1.00 - 3.00 High >3.00Performed at: [facility] - [facility] [id number] Director: Chuy Rizvi PhD, Phone: [phone] CBC W/Diff, Automatedon 02-02 HYPOCHROMASIA 2+ Normal [facility] Comment on above: Performed By: #### L 101.9900, L501.9520, L501.7300, L100.0100, L501.7400, L500.4050, L501.5500, L3100.7870 ####[facility] [address] [place], [address] Anisocytosis Ql (Bld) 2+ Normal [facility] Comment on above: Performed By: #### L 101.9900, L501.9520, L501.7300, L100.0100, L501.7400, L500.4050, L501.5500, L3100.7870 ####[facility] [address] [place], [address] POLYCHROMASIA 1+ Normal [facility] Comment on above: Performed By: #### L 101.9900, L501.9520, L501.7300, L100.0100, L501.7400, L500.4050, L501.5500, L3100.7870 ####[facility] [address] [place], [address] PLT EST ADEQUATE Normal ADEQ [facility] Comment on above: Performed By: #### L 101.9900, L501.9520, L501.7300, L100.0100, L501.7400, L500.4050, L501.5500, L3100.7870 ####[facility] [address] [place], [address] SMEAR COMMENT SCANNED Normal [facility] Comment on above: Performed By: #### L 101.9900, L501.9520, L501.7300, L100.0100, L501.7400, L500.4050, L501.5500, L3100.7870 ####[facility] [address] [place], [address] Carbon dioxide, total [Moles /volume] in Central venous bloodOrdered By: Vincent Flores on 02-13-2025 CO2 [Moles/Vol] 24.2 mmol/L 21.0-32.0 [facility] Chloride assayOrdered By: Ishmael Flores on 02-13-2025 Chloride [Moles/Vol] 91 mmol/L Low 98-108 [facility] Comprehensive Metabolic Prof ilon 02-13-2025 Albumin [Mass/Vol] 4.1 g/dL Normal 3.4-4.8 [facility] Comment on above: Performed By: #### L 101.9900, L501.9520, L501.7300, L100.0100, L501.7400, L500.4050, L501.5500, L3100.7870 ####[facility] [address] [place], [address] Albumin/Globulin [Mass ratio] 1.2 {ratio} Normal 0.9-2.4 [facility] Comment on above: Performed By: #### L 101.9900, L501.9520, L501.7300, L100.0100, L501.7400, L500.4050, L501.5500, L3100.7870 ####[facility] [address] [place], [place], [id number] ALK PHOS 109 U/L High 35-104 [facility] Comment on above: Performed By: #### L 101.9900, L501.9520, L501.7300, L100.0100, L501.7400, L500.4050, L501.5500, L3100.7870 ####[facility] [address] [place], [address] ALT [Catalytic activity/Vol] 11 U/L Normal <=34 [facility] Comment on above: Performed By: #### L 101.9900, L501.9520, L501.7300, L100.0100, L501.7400, L500.4050, L501.5500, L3100.7870 ####[facility] [address] [place], [address] AST [Catalytic activity/Vol] 26 U/L Normal <=31 [facility] Comment on above: Performed By: #### L 101.9900, L501.9520, L501.7300, L100.0100, L501.7400, L500.4050, L501.5500, L3100.7870 ####[facility] [address] [place], [address] Bilirubin [Mass/Vol] 1.18 mg/dL Normal 0.00-1.30 [facility] Comment on above: Performed By: #### L 101.9900, L501.9520, L501.7300, L100.0100, L501.7400, L500.4050, L501.5500, L3100.7870 ####[facility] [address] [place], [address] BUN/CRE 27.4 RATIO High 10-20 [facility] Comment on above: Performed By: #### L 101.9900, L501.9520, L501.7300, L100.0100, L501.7400, L500.4050, L501.5500, L3100.7870 ####[facility] [address] [place], [address] Calcium [Mass/Vol] 9.7 mg/dL Normal 7.6-11.0 [facility] Comment on above: Performed By: #### L 101.9900, L501.9520, L501.7300, L100.0100, L501.7400, L500.4050, L501.5500, L3100.7870 ####[facility] [address] [place], [address] Chloride [Moles/Vol] 91 mmol/L Low 98-108 [facility] Comment on above: Performed By: #### L 101.9900, L501.9520, L501.7300, L100.0100, L501.7400, L500.4050, L501.5500, L3100.7870 ####[facility] [address] [place], [place], [id number] CO2 [Moles/Vol] 24.2 mmol/L Normal 21.0-32.0 [facility] Comment on above: Performed By: #### L 101.9900, L501.9520, L501.7300, L100.0100, L501.7400, L500.4050, L501.5500, L3100.7870 ####[facility] [address] [place], [place], [address] Creatinine [Mass/Vol] 2.25 mg/dL High 0.70-1.[address] [facility] Comment on above: Performed By: #### L 101.9900, L501.9520, L501.7300, L100.0100, L501.7400, L500.4050, L501.5500, L3100.7870 ####[facility] [address] [place], [place], [id number] GAP 17 High 5-15 [facility] Comment on above: Performed By: #### L 101.9900, L501.9520, L501.7300, L100.0100, L501.7400, L500.4050, L501.5500, L3100.7870 ####[facility] [address] [place], [place], [address] GFR/1.73 sq M.predicted among non-blacks MDRD (S/P/Bld) [Vol rate/Area] 22 mL/min/{1.73_m2} Low >60 [facility] Comment on above: Result Comment: mL/m in/1.73m2 CKD-EPI Creatinine Equation (2020) Performed By: #### L 101.9900, L501.9520, L501.7300, L100.0100, L501.7400, L500.4050, L501.5500, L3100.7870 ####[facility] [address] [place], [address] Globulin (S) [Mass/Vol] 3.4 g/dL Normal 2.2-4.2 [facility] Comment on above: Performed By: #### L 101.9900, L501.9520, L501.7300, L100.0100, L501.7400, L500.4050, L501.5500, L3100.7870 ####[facility] [address] [place], [address] Glucose [Mass/Vol] 90 mg/dL Normal 70-99 [facility] Comment on above: Performed By: #### L 101.9900, L501.9520, L501.7300, L100.0100, L501.7400, L500.4050, L501.5500, L3100.7870 ####[facility] [address] [place], [address] Potassium [Moles/Vol] 3.5 mmol/L Normal 3.3-5.[address] [facility] Comment on above: Performed By: #### L 101.9900, L501.9520, L501.7300, L100.0100, L501.7400, L500.4050, L501.5500, L3100.7870 ####[facility] [address] [place], [address] Sodium [Moles/Vol] 132 mmol/L Low 133-145 [facility] Comment on above: Performed By: #### L 101.9900, L501.9520, L501.7300, L100.0100, L501.7400, L500.4050, L501.5500, L3100.7870 ####[facility] [address] [place], [address] T PROT 7.4 g/dL Normal 5.9-8.4 [facility] Comment on above: Performed By: #### L 101.9900, L501.9520, L501.7300, L100.0100, L501.7400, L500.4050, L501.5500, L3100.7870 ####[facility] [address] [place], [place], [id number] Urea nitrogen [Mass/Vol] 62 mg/dL High 4-19 [facility] Comment on above: Performed By: #### L 101.9900, L501.9520, L501.7300, L100.0100, L501.7400, L500.4050, L501.5500, L3100.7870 ####[facility] [address] [place], [address] Eosinophil percentageOrdered By: Vincent Flores on 02-13-2025 Eosinophils/100 WBC (Bld) 1.4 % 0-5 [facility] Erythrocyte Sed Rateon 02-13 SED RATE 25 mm/hr Normal 0-30 [facility] Comment on above: Performed By: #### L 101.9900, L501.9520, L501.7300, L100.0100, L501.7400, L500.4050, L501.5500, L3100.7870 ####[facility] [address] [place], [address] Erythrocyte distribution wid th ratioOrdered By: Vincent Flores on 02-13-2025 Erythrocyte distribution width (RBC) [Ratio] 24.1 % High 11.6-14.6 [facility] Erythrocyte distribution wid th standard deviationOrdered By: Vincent Flores on 02-13-2025 Erythrocyte distribution width (RBC) [Ratio] 76.2 fl High 35.1-43.9 [facility] Erythrocyte sedimentation ra teOrdered By: Vincent Flores on 02-13-2025 ESR (Bld) [Velocity] 25 mm/h 0-30 [facility] Glomerular filtration rate ( GFR) estimation/1.73 sq m using serum, plasma, or whole bOrdered By: Vincent Flores on 02-13-2025 GFR/1.73 sq M.predicted among non-blacks MDRD (S/P/Bld) [Vol rate/Area] 22 mL/min/{1.73_m2} Low >60 [facility] Comment on above: mL/min/1.73m2 CKD-EP I Creatinine Equation (2020) Hematocrit Auto (Bld) [Volum e fraction]Ordered By: Vincent Flores 02-13-2025 Hematocrit (Bld) [Volume fraction] 31.1 % Low 37-47 [facility] Hemoglobin measurementOrdere d By: Vincent Flores 02-13-2025 Hemoglobin (Bld) [Mass/Vol] 9.8 g/dL Low 12.0-15.0 [facility] Hypochromatic red blood cell detectionOrdered By: Vincent Flores 02-13-2025 Hypochromia Ql (Bld) 2+ [facility] Immature granulocytes/100 WB C Auto (Bld)Ordered By: Vincent Flores 02-13-2025 Immature granulocytes/100 WBC (Bld) 0.300 % 0.0-0.9 [facility] Comment on above: IG% - Immature Granu locytes (promyelocytes, myelocytes and metamyelocytes) > 1% indicates that a LEFT SHIFT is Present. Laboratory - Chemistry and C hemistry - challengeOrdered By: Vincent Flores 02-13-2025 AST [Catalytic activity/Vol] 26 U/L <32 [facility] Laboratory - Hematology and Cell countsOrdered By: Vincent Flores 02-13-2025 Anisocytosis Ql (Bld) 2+ [facility] MCV (mean corpuscular volume ) determinationOrdered By: Vincent Flores 02-13-2025 MCV (RBC) [Entitic vol] 87.6 fL 81-99 [facility] Mean corpuscular hemoglobin (MCH) determinationOrdered By: Vincent Flores 02-13-2025 MCH (RBC) [Entitic mass] 27.6 pg 27.0-32.0 [facility] Mean corpuscular hemoglobin concentration (MCHC) determinationOrdered By: Vincent Flores 02-13-2025 MCHC (RBC) [Mass/Vol] 31.5 g/dL Low 32-[address] [facility] Mean platelet volume determi nationOrdered By: Vincent Flores on 02-13-2025 Platelet mean volume (Bld) [Entitic vol] 10.1 fL 6.2-12.0 [facility] Monocyte percentageOrdered B y: Vnicent Flores on 02-13-2025 Monocytes/100 WBC (Bld) 11.1 % High 0-10 [facility] Neutrophil percentageOrdered By: Vincent Flores on 02-13-2025 Neutrophils/100 WBC (Bld) 65.9 % 47-70 [facility] No Panel InformationOrdered By: Vicnent Mark on 02-13-2025 2+ [facility] 26 U/L <32 [facility] Nucleated red blood cell per centageOrdered By: Vincent Mark on 02-13-2025 Nucleated RBC/100 WBC (Bld) [Ratio] 0 % 0-5 [facility] Osmolality urOrdered By: Vincent Flores on 02-13-2025 Osmolality (U) [Osmolality] 315 mOsm/KG >50 [facility] Comment on above: Normal Urine Referen ce Ranges Random: 50 - 1200 mOsm/kg H20 depending on fluid intake Random: >850 mOsm/kg after 12 hour fluid restriction 24 hour: ~300 - 900 mOsm/kg H2O Osmolality, Serumon 02-14-20 25 OSMOLALITY,SER 295 mOsm/KG Normal 280-301 [facility] Comment on above: Performed By: #### L 101.9900, L501.9520, L501.7300, L100.0100, L501.7400, L500.4050, L501.5500, L3100.7870 ####[facility] [address] [facility] [place], [place], [address] Osmolality, Urineon 02-14-20 25 OSMOLALITY,UR 315 mOsm/KG Normal [facility] Comment on above: Result Comment: Norm al Urine Reference Ranges Random: 50 - 1200 mOsm/kg H20 depending on fluid intake Random: >850 mOsm/kg after 12 hour fluid restriction 24 hour: 300 - 900 mOsm/kg H2O Performed By: #### L 101.9900, L501.9520, L501.7300, L100.0100, L501.7400, L500.4050, L501.5500, L3100.7870 ####[facility] [address] [place], [address] Platelet countOrdered By: Ishmael Flores on 02-13-2025 Platelets (Bld) [#/Vol] 163 10*3/uL 150-450 [facility] Platelet estimateOrdered By: Vincent Flores on 02-13-2025 Platelets LM Ql (Bld) ADEQUATE ADEQ [facility] Potassium measurement (mass/ volume)Ordered By: Vincent Flores on 02-13-2025 Potassium (Unsp spec) [Mass/Vol] 3.5 mmol/L 3.3-5.1 [facility] RBC Auto (Bld) [#/Vol]Ordere d By: Vincent Flores on 02-13-2025 RBC (Bld) [#/Vol] 3.55 10*6/uL Low 4.2-5.[address] [facility] Serum creatinine measurement (mass/volume)Ordered By: Vincent Flores on 02-13-2025 Creatinine [Mass/Vol] 2.25 mg/dL High 0.70-1.[address] [facility] Serum globulin measurementOr dered By: Vincent Flores 02-13-2025 Globulin (S) [Mass/Vol] 3.4 g/dL 2.2-4.2 [facility] Serum glucose measurement (m ass/volume)Ordered By: Vincent Flores 02-13-2025 Glucose [Mass/Vol] 90 mg/dL 70-99 [facility] Serum or plasma alanine craven otransferase (ALT) measurementOrdered By: Vincent Flores 02-13-2025 ALT [Catalytic activity/Vol] 11 U/L <35 [facility] Serum or plasma albumin bijan urement (mass/volume)Ordered By: Vincent Flores on 02-13-2025 Albumin [Mass/Vol] 4.1 g/dL 3.4-4.8 [facility] Serum or plasma albumin/glob ulin mass ratioOrdered By: Vincent Flores 02-13-2025 Albumin/Globulin [Mass ratio] 1.2 {ratio} 0.9-2.4 [facility] Serum or plasma alkaline da sphatase measurementOrdered By: Vincent Mark on 02-13-2025 ALP [Catalytic activity/Vol] 109 U/L High 35-104 [facility] Serum or plasma calcium bijan urement (mass/volume)Ordered By: Vincent Flores on 02-13-2025 Calcium [Mass/Vol] 9.7 mg/dL 7.6-11.0 [facility] Serum or plasma urea nitroge n measurement (mass/volume)Ordered By: Vincent Flores on 02-13-2025 Urea nitrogen [Mass/Vol] 62 mg/dL High 4-19 [facility] Sodium levelOrdered By: Vincent Mrak on 02-13-2025 Sodium [Moles/Vol] 132 mmol/L Low 133-145 [facility] TSH DL <= 0.005 mIU/L QnOrde red By: Vincent Flores on 02-13-2025 TSH Qn 3.180 uIU/mL 0.300-4.200 [facility] Thyroid Stim Hormone (TSH)on 02-13-2025 TSH 3.180 uIU/mL Normal 0.300-4.200 [facility] Comment on above: Performed By: #### L 101.9900, L501.9520, L501.7300, L100.0100, L501.7400, L500.4050, L501.5500, L3100.7870 ####[facility] [address] [place], [address] Total proteinOrdered By: Vincent Flores on 02-13-2025 Protein [Mass/Vol] 7.4 g/dL 5.9-8.4 [facility] Urine Sodiumon 02-13-2025 Sodium (U) [Moles/Vol] 57 mmol/L Normal Not Establ. [facility] Comment on above: Performed By: #### L 101.9900, L501.9520, L501.7300, L100.0100, L501.7400, L500.4050, L501.5500, L3100.7870 ####[facility] [address] [place], [address] Urine sodium measurement (mo les/volume)Ordered By: Vincent Flores on 02-13-2025 Sodium (U) [Moles/Vol] 57 mmol/L Not Establ. [facility] White blood cell (WBC) count Ordered By: Vincent Flores on 02-13-2025 WBC (Bld) [#/Vol] 7.7 10*3/uL 4.4-11.0 [facility] Pacemaker Checkon 02-08-2025 Pacemaker Check Normal [facility] Anion gap in Serum or Plasma Ordered By: Juan Diego Huynh on 02-05-2025 Anion gap [Moles/Vol] 17 mmol/L High 5-[address] [facility] BUN/creatinine ratioOrdered By: Juan Diego Huynh on 02-05-2025 Urea nitrogen/Creatinine [Mass ratio] 33.5 mg/mg High 10-20 [facility] Basic Metabolic Profile (BMP )on 02-05-2025 BUN/CRE 33.5 RATIO High 10-20 [facility] Comment on above: Performed By: #### L 503.7505, L500.2500 ####[facility] [address] [place], [address] Calcium [Mass/Vol] 9.5 mg/dL Normal 7.6-11.0 [facility] Comment on above: Performed By: #### L 503.7505, L500.2500 ####[facility] [address] [place], [address] Chloride [Moles/Vol] 90 mmol/L Low 98-108 [facility] Comment on above: Performed By: #### L 503.7505, L500.2500 ####[facility] [address] [place], [address] CO2 [Moles/Vol] 22.7 mmol/L Normal 21.0-32.0 [facility] Comment on above: Performed By: #### L 503.7505, L500.2500 ####[facility] [address] [place], [address] Creatinine [Mass/Vol] 2.11 mg/dL High 0.70-1.[address] [facility] Comment on above: Performed By: #### L 503.7505, L500.2500 ####[facility] [address] [place], [address] GAP 17 High 5-15 [facility] Comment on above: Performed By: #### L 503.7505, L500.2500 ####[facility] [address] [place], [address] GFR/1.73 sq M.predicted among non-blacks MDRD (S/P/Bld) [Vol rate/Area] 23 mL/min/{1.73_m2} Low >60 [facility] Comment on above: Result Comment: mL/m in/1.73m2 CKD-EPI Creatinine Equation (2020) Performed By: #### L 503.7505, L500.2500 ####[facility] [address] [place], [address] Glucose [Mass/Vol] 159 mg/dL High 70-99 [facility] Comment on above: Performed By: #### L 503.7505, L500.2500 ####[facility] [address] [place], [address] Potassium [Moles/Vol] 4.2 mmol/L Normal 3.3-5.[address] [facility] Comment on above: Performed By: #### L 503.7505, L500.2500 ####[facility] [address] [place], [address] Sodium [Moles/Vol] 130 mmol/L Low 133-145 [facility] Comment on above: Performed By: #### L 503.7505, L500.2500 ####[facility] [address] [place], [address] Urea nitrogen [Mass/Vol] 71 mg/dL High 4-19 [facility] Comment on above: Performed By: #### L 503.7505, L500.2500 ####[facility] [address] [place], [address] Carbon dioxide, total [Moles /volume] in Central venous bloodOrdered By: Juan Diego Huynh on 02-05-2025 CO2 [Moles/Vol] 22.7 mmol/L 21.0-32.0 [facility] Cardiology Visit Reporton Cardiology Visit Report Normal [facility] Chloride assayOrdered By: Jennifer Huynh on 02-05-2025 Chloride [Moles/Vol] 90 mmol/L Low 98-108 [facility] Glomerular filtration rate ( GFR) estimation/1.73 sq m using serum, plasma, or whole bOrdered By: Juan Diego Huynh on 02-05-2025 GFR/1.73 sq M.predicted among non-blacks MDRD (S/P/Bld) [Vol rate/Area] 23 mL/min/{1.73_m2} Low >60 [facility] Comment on above: mL/min/1.73m2 CKD-EP I Creatinine Equation (2020) Natriuretic peptide.B prohor daria N-Terminal [Mass/volume] in Serum or PlasmaOrdered By: Juan Diego Huynh on 02-05-2025 Natriuretic peptide.B prohormone N-Terminal [Mass/Vol] 9503 pg/mL High <1800 [facility] Comment on above: Heart Failure Unlike ly: < 300 pg/mLHeart Failure Likely< 50 Years: > 450 pg/mL50-75 Years: > 900 pg/mL>75 Years: > 1800 pg/mL Potassium measurement (mass/ volume)Ordered By: Juan Diego Huynh on 02-05-2025 Potassium (Unsp spec) [Mass/Vol] 4.2 mmol/L 3.3-5.1 [facility] Pro- Brain NATRIURETIC PEPTI Drew 02-05-2025 Natriuretic peptide B (Bld) [Mass/Vol] 9503 pg/mL High <=1800 [facility] Comment on above: Result Comment: Hear t Failure Unlikely: < 300 pg/mLHeart Failure Likely< 50 Years: > 450 pg/mL50-75 Years: > 900 pg/mL>75 Years: > 1800 pg/mL Performed By: #### L 503.7505, L500.2500 ####[facility] [address] [place], [address] Serum creatinine measurement (mass/volume)Ordered By: Juan Diego Huynh on 02-05-2025 Creatinine [Mass/Vol] 2.11 mg/dL High 0.70-1.[address] [facility] Serum glucose measurement (m ass/volume)Ordered By: Juan Diego Huynh on 02-05-2025 Glucose [Mass/Vol] 159 mg/dL High 70-99 [facility] Serum or plasma calcium bijan urement (mass/volume)Ordered By: Juan Diego Huynh on 02-05-2025 Calcium [Mass/Vol] 9.5 mg/dL 7.6-11.0 [facility] Serum or plasma urea nitroge n measurement (mass/volume)Ordered By: Juan Diego Huynh on 02-05-2025 Urea nitrogen [Mass/Vol] 71 mg/dL High 4-19 [facility] Sodium levelOrdered By: Phi Huynh on 02-05-2025 Sodium [Moles/Vol] 130 mmol/L Low 133-145 [facility] Absolute lymphocyte countOrd ered By: Vincent Flores on 02-01-2025 Lymphocytes Auto (Unsp spec) [#/Vol] 1.38 10*3/uL 0.83-4.51 [facility] Absolute neutrophil countOrd ered By: Vincent Flores on 02-01-2025 Neutrophils (Bld) [#/Vol] 5.0 10*3/uL 2.0-7.7 [facility] Anion gap in Serum or Plasma Ordered By: Vincent Flores on 02-01-2025 Anion gap [Moles/Vol] 16 mmol/L High 5-[address] [facility] Automated lymphocyte count a s percentage of total leukocytesOrdered By: Vincent Flores on 02-01-2025 Lymphocytes/100 WBC Auto (Unsp spec) 18.6 % Low 19-41 [facility] BUN/creatinine ratioOrdered By: Vincent Flores on 02-01-2025 Urea nitrogen/Creatinine [Mass ratio] 30.6 mg/mg High 10-20 [facility] Basophil percentageOrdered B y: Vincent Flores on 02-01-2025 Basophils/100 WBC (Bld) 0.7 % 0-1 [facility] Bilirubin, totalOrdered By: Vincent Flores on 02-01-2025 Bilirubin [Mass/Vol] 0.99 mg/dL 0.00-1.30 [facility] CBC W/Diff, Automatedon 01-04 Absolute Lymph 1.38 X10 3/uL Normal 0.83-4.51 [facility] Comment on above: Performed By: #### L 500.4050, L506.1001, L501.9520, L100.0100 ####[facility] [address] [place], [address] Absolute Neut 5.0 X10 3/uL Normal 2.0-7.7 [facility] Comment on above: Performed By: #### L 500.4050, L506.1001, L501.9520, L100.0100 ####[facility] [address] [place], [address] Basophils/100 WBC (Bld) 0.7 % Normal 0-1 [facility] Comment on above: Performed By: #### L 500.4050, L506.1001, L501.9520, L100.0100 ####[facility] [address] [place], [address] Eosinophils/100 WBC (Bld) 1.6 % Normal 0-5 [facility] Comment on above: Performed By: #### L 500.4050, L506.1001, L501.9520, L100.0100 ####[facility] [address] [place], [address] Erythrocyte distribution width (RBC) [Ratio] 19.9 % High 11.6-14.6 [facility] Comment on above: Performed By: #### L 500.4050, L506.1001, L501.9520, L100.0100 ####[facility] [address] [place], [address] Hematocrit (Bld) [Volume fraction] 29.6 % Low 37-47 [facility] Comment on above: Performed By: #### L 500.4050, L506.1001, L501.9520, L100.0100 ####[facility] [address] [place], [address] Hemoglobin (Bld) [Mass/Vol] 9.5 g/dL Low 12.0-15.0 [facility] Comment on above: Performed By: #### L 500.4050, L506.1001, L501.9520, L100.0100 ####[facility] [address] [place], [address] IG% 0.700 Normal 0.0-0.9 [facility] Comment on above: Result Comment: IG% - Immature Granulocytes (promyelocytes, myelocytes andmetamyelocytes) > 1% indicates that a LEFT SHIFT is Present. Performed By: #### L 500.4050, L506.1001, L501.9520, L100.0100 ####[facility] [address] [place], [address] Lymphocytes/100 WBC (Bld) 18.6 % Low 19-41 [facility] Comment on above: Performed By: #### L 500.4050, L506.1001, L501.9520, L100.0100 ####[facility] [address] [place], [address] MCH (RBC) [Entitic mass] 27.1 pg Normal 27.0-32.0 [facility] Comment on above: Performed By: #### L 500.4050, L506.1001, L501.9520, L100.0100 ####[facility] [address] [place], [address] MCHC (RBC) [Mass/Vol] 32.1 g/dL Normal 32-[address] [facility] Comment on above: Performed By: #### L 500.4050, L506.1001, L501.9520, L100.0100 ####[facility] [address] [place], [address] MCV (RBC) [Entitic vol] 84.6 fL Normal 81-99 [facility] Comment on above: Performed By: #### L 500.4050, L506.1001, L501.9520, L100.0100 ####[facility] [address] [place], [address] Monocytes/100 WBC (Bld) 11.2 % High 0-10 [facility] Comment on above: Performed By: #### L 500.4050, L506.1001, L501.9520, L100.0100 ####[facility] [address] [place], [address] Neutrophils/100 WBC (Bld) 67.2 % Normal 47-70 [facility] Comment on above: Performed By: #### L 500.4050, L506.1001, L501.9520, L100.0100 ####[facility] [facility] [address] [place], [address] Nucleated RBC (Bld) [#/Vol] 0 10*3/uL Normal 0-5 [facility] Comment on above: Performed By: #### L 500.4050, L506.1001, L501.9520, L100.0100 ####[facility] [address] [place], [address] Platelet mean volume (Bld) [Entitic vol] 9.6 fL Normal 6.2-12.0 [facility] Comment on above: Performed By: #### L 500.4050, L506.1001, L501.9520, L100.0100 ####[facility] [address] [place], [address] Platelets (Bld) [#/Vol] 209 10*3/uL Normal 150-450 [facility] Comment on above: Performed By: #### L 500.4050, L506.1001, L501.9520, L100.0100 ####[facility] [address] [place], [address] RBC (Bld) [#/Vol] 3.50 10*6/uL Low 4.2-5.[address] [facility] Comment on above: Performed By: #### L 500.4050, L506.1001, L501.9520, L100.0100 ####[facility] [address] [place], [address] RDW SD 61.5 fl High 35.1-43.9 [facility] Comment on above: Performed By: #### L 500.4050, L506.1001, L501.9520, L100.0100 ####[facility] [address] [place], [address] WBC (Bld) [#/Vol] 7.4 10*3/uL Normal 4.4-11.0 [facility] Comment on above: Performed By: #### L 500.4050, L506.1001, L501.9520, L100.0100 ####[facility] [address] [place], [address] Carbon dioxide, total [Moles /volume] in Central venous bloodOrdered By: Vincent Flores on 02-01-2025 CO2 [Moles/Vol] 25.1 mmol/L 21.0-32.0 [facility] Chloride assayOrdered By: Ishmael Flores on 02-01-2025 Chloride [Moles/Vol] 88 mmol/L Low 98-108 [facility] Comprehensive Metabolic Prof ilon 02-01-2025 Albumin [Mass/Vol] 4.2 g/dL Normal 3.4-4.8 [facility] Comment on above: Performed By: #### L 500.4050, L506.1001, L501.9520, L100.0100 ####[facility] [address] [place], [address] Albumin/Globulin [Mass ratio] 1.3 {ratio} Normal 0.9-2.4 [facility] Comment on above: Performed By: #### L 500.4050, L506.1001, L501.9520, L100.0100 ####[facility] [address] [place], [address] ALK PHOS 120 U/L High 35-104 [facility] Comment on above: Performed By: #### L 500.4050, L506.1001, L501.9520, L100.0100 ####[facility] [address] [place], [address] ALT [Catalytic activity/Vol] 11 U/L Normal <=34 [facility] Comment on above: Performed By: #### L 500.4050, L506.1001, L501.9520, L100.0100 ####[facility] [address] [place], [address] AST [Catalytic activity/Vol] 26 U/L Normal <=31 [facility] Comment on above: Performed By: #### L 500.4050, L506.1001, L501.9520, L100.0100 ####[facility] [address] [place], [address] Bilirubin [Mass/Vol] 0.99 mg/dL Normal 0.00-1.30 [facility] Comment on above: Performed By: #### L 500.4050, L506.1001, L501.9520, L100.0100 ####[facility] [address] [place], [address] BUN/CRE 30.6 RATIO High 10-20 [facility] Comment on above: Performed By: #### L 500.4050, L506.1001, L501.9520, L100.0100 ####[facility] [address] [place], [address] Calcium [Mass/Vol] 9.3 mg/dL Normal 7.6-11.0 [facility] Comment on above: Performed By: #### L 500.4050, L506.1001, L501.9520, L100.0100 ####[facility] [address] [place], [address] Chloride [Moles/Vol] 88 mmol/L Low 98-108 [facility] Comment on above: Performed By: #### L 500.4050, L506.1001, L501.9520, L100.0100 ####[facility] [address] [place], [address] CO2 [Moles/Vol] 25.1 mmol/L Normal 21.0-32.0 [facility] Comment on above: Performed By: #### L 500.4050, L506.1001, L501.9520, L100.0100 ####[facility] [address] [place], [address] Creatinine [Mass/Vol] 2.46 mg/dL High 0.70-1.[address] [facility] Comment on above: Performed By: #### L 500.4050, L506.1001, L501.9520, L100.0100 ####[facility] [address] [place], [address] GAP 16 High 5-15 [facility] Comment on above: Performed By: #### L 500.4050, L506.1001, L501.9520, L100.0100 ####[facility] [address] [place], [address] GFR/1.73 sq M.predicted among non-blacks MDRD (S/P/Bld) [Vol rate/Area] 19 mL/min/{1.73_m2} Low >60 [facility] Comment on above: Result Comment: mL/m in/1.73m2 CKD-EPI Creatinine Equation (2020) Performed By: #### L 500.4050, L506.1001, L501.9520, L100.0100 ####[facility] [address] [place], [address] Globulin (S) [Mass/Vol] 3.2 g/dL Normal 2.2-4.2 [facility] Comment on above: Performed By: #### L 500.4050, L506.1001, L501.9520, L100.0100 ####[facility] [address] [place], [address] Glucose [Mass/Vol] 138 mg/dL High 70-99 [facility] Comment on above: Performed By: #### L 500.4050, L506.1001, L501.9520, L100.0100 ####[facility] [address] [place], [address] Potassium [Moles/Vol] 3.4 mmol/L Normal 3.3-5.[address] [facility] Comment on above: Performed By: #### L 500.4050, L506.1001, L501.9520, L100.0100 ####[facility] [address] [place], [address] Sodium [Moles/Vol] 129 mmol/L Low 133-145 [facility] Comment on above: Performed By: #### L 500.4050, L506.1001, L501.9520, L100.0100 ####[facility] [address] [place], [address] T PROT 7.4 g/dL Normal 5.9-8.4 [facility] Comment on above: Performed By: #### L 500.4050, L506.1001, L501.9520, L100.0100 ####[facility] [address] [place], [address] Urea nitrogen [Mass/Vol] 75 mg/dL High 4-19 [facility] Comment on above: Performed By: #### L 500.4050, L506.1001, L501.9520, L100.0100 ####[facility] [address] [place], [address] Eosinophil percentageOrdered By: Vincent Flores on 02-01-2025 Eosinophils/100 WBC (Bld) 1.6 % 0-5 [facility] Erythrocyte distribution wid th ratioOrdered By: Vincent Flores on 02-01-2025 Erythrocyte distribution width (RBC) [Ratio] 19.9 % High 11.6-14.6 [facility] Erythrocyte distribution wid th standard deviationOrdered By: Vincent Flores on 02-01-2025 Erythrocyte distribution width (RBC) [Ratio] 61.5 fl High 35.1-43.9 [facility] Glomerular filtration rate ( GFR) estimation/1.73 sq m using serum, plasma, or whole bOrdered By: Vincent Flores on 02-01-2025 GFR/1.73 sq M.predicted among non-blacks MDRD (S/P/Bld) [Vol rate/Area] 19 mL/min/{1.73_m2} Low >60 [facility] Comment on above: mL/min/1.73m2 CKD-EP I Creatinine Equation (2020) Hematocrit Auto (Bld) [Volum e fraction]Ordered By: Vincent Flores on 02-01-2025 Hematocrit (Bld) [Volume fraction] 29.6 % Low 37-47 [facility] Hemoglobin measurementOrdere d By: Vincent Flores 02-01-2025 Hemoglobin (Bld) [Mass/Vol] 9.5 g/dL Low 12.0-15.0 [facility] Immature granulocytes/100 WB C Auto (Bld)Ordered By: Vincent Flores on 02-01-2025 Immature granulocytes/100 WBC (Bld) 0.700 % 0.0-0.9 [facility] Comment on above: IG% - Immature Granu locytes (promyelocytes, myelocytes and metamyelocytes) > 1% indicates that a LEFT SHIFT is Present. Laboratory - Chemistry and C hemistry - challengeOrdered By: Vincent Flores on 02-01-2025 AST [Catalytic activity/Vol] 26 U/L <32 [facility] MCV (mean corpuscular volume ) determinationOrdered By: Vincent Flores on 02-01-2025 MCV (RBC) [Entitic vol] 84.6 fL 81-99 [facility] Mean corpuscular hemoglobin (MCH) determinationOrdered By: Vincent Flores on 02-01-2025 MCH (RBC) [Entitic mass] 27.1 pg 27.0-32.0 [facility] Mean corpuscular hemoglobin concentration (MCHC) determinationOrdered By: Vincent Flores 02-01-2025 MCHC (RBC) [Mass/Vol] 32.1 g/dL 32-[address] [facility] Mean platelet volume determi nationOrdered By: Vincent Flores on 02-01-2025 Platelet mean volume (Bld) [Entitic vol] 9.6 fL 6.2-12.0 [facility] Monocyte percentageOrdered B y: Vincent Flores on 02-01-2025 Monocytes/100 WBC (Bld) 11.2 % High 0-10 [facility] Neutrophil percentageOrdered By: Vincent Flores on 02-01-2025 Neutrophils/100 WBC (Bld) 67.2 % 47-70 [facility] No Panel InformationOrdered By: Vincent Flores on 02-01-2025 26 U/L <32 [facility] Nucleated red blood cell per centageOrdered By: Vincent Flores on 02-01-2025 Nucleated RBC/100 WBC (Bld) [Ratio] 0 % 0-5 [facility] Platelet countOrdered By: Ishmael Flores on 02-01-2025 Platelets (Bld) [#/Vol] 209 10*3/uL 150-450 [facility] Potassium measurement (mass/ volume)Ordered By: Vincent Flores on 02-01-2025 Potassium (Unsp spec) [Mass/Vol] 3.4 mmol/L 3.3-5.1 [facility] RBC Auto (Bld) [#/Vol]Ordere d By: Vincent Flores on 02-01-2025 RBC (Bld) [#/Vol] 3.50 10*6/uL Low 4.2-5.[address] [facility] Serum creatinine measurement (mass/volume)Ordered By: Vincent Flores on 02-01-2025 Creatinine [Mass/Vol] 2.46 mg/dL High 0.70-1.[address] [facility] Serum globulin measurementOr dered By: Vincent Flores 02-01-2025 Globulin (S) [Mass/Vol] 3.2 g/dL 2.2-4.2 [facility] Serum glucose measurement (m ass/volume)Ordered By: Vincent Flores 02-01-2025 Glucose [Mass/Vol] 138 mg/dL High 70-99 [facility] Serum or plasma alanine craven otransferase (ALT) measurementOrdered By: Vincent Flores 02-01-2025 ALT [Catalytic activity/Vol] 11 U/L <35 [facility] Serum or plasma albumin bijan urement (mass/volume)Ordered By: Vincent Flores 02-01-2025 Albumin [Mass/Vol] 4.2 g/dL 3.4-4.8 [facility] Serum or plasma albumin/glob ulin mass ratioOrdered By: Vincent Flores 02-01-2025 Albumin/Globulin [Mass ratio] 1.3 {ratio} 0.9-2.4 [facility] Serum or plasma alkaline da sphatase measurementOrdered By: Vincent Flores 02-01-2025 ALP [Catalytic activity/Vol] 120 U/L High 35-104 [facility] Serum or plasma calcium bijan urement (mass/volume)Ordered By: Vincent Flores 02-01-2025 Calcium [Mass/Vol] 9.3 mg/dL 7.6-11.0 [facility] Serum or plasma urea nitroge n measurement (mass/volume)Ordered By: Vincent Flores 02-01-2025 Urea nitrogen [Mass/Vol] 75 mg/dL High 4-19 [facility] Sodium levelOrdered By: Vincent Flores on 02-01-2025 Sodium [Moles/Vol] 129 mmol/L Low 133-145 [facility] TSH DL <= 0.005 mIU/L QnOrde red By: Vincent Flores on 02-01-2025 TSH Qn 4.710 uIU/mL High 0.300-4.200 [facility] Thyroid Stim Hormone (TSH)on 02-01-2025 TSH 4.710 uIU/mL High 0.300-4.200 [facility] Comment on above: Performed By: #### L 500.4050, L506.1001, L501.9520, L100.0100 ####[facility] [address] [place], [place], [address] Total proteinOrdered By: Vincent Flores on 02-01-2025 Protein [Mass/Vol] 7.4 g/dL 5.9-8.4 [facility] Vitamin D,25 Hydroxyon 02-01 Vitamin D 25-OH 36.3 ng/mL Normal 30-100 [facility] Comment on above: Result Comment: Haydee min D StatusDeficiency: <20 ng/mL (50nmol/L)Insufficiency: 20-30 ng/mL (50-75 nmol/L)Sufficiency: 30-100 ng/mL (75-250 nmol/L)Toxicity: >100 ng/mL (>250 nmol/L) Performed By: #### L 500.4050, L506.1001, L501.9520, L100.0100 ####[facility] [address] [place], [address] White blood cell (WBC) count Ordered By: Vincent Flores on 02-01-2025 WBC (Bld) [#/Vol] 7.4 10*3/uL 4.4-11.0 [facility] AST(SGOT)on 01-23-2025 AST [Catalytic activity/Vol] 24 U/L Normal <=31 [facility] Comment on above: Performed By: #### L 501.4100, L3890.6301, L501.4600, L100.0100, L501.9520, L001.0705, L501.2300, L501.4305, L501.4405, L500.4100, L506.1001 ####[facility] [address] [place], [place], [address] Absolute lymphocyte countOrd ered By: Vincent Flores on 01-23-2025 Lymphocytes Auto (Unsp spec) [#/Vol] 1.55 10*3/uL 0.83-4.51 [facility] Absolute neutrophil countOrd ered By: Vincent Flores on 01-23-2025 Neutrophils (Bld) [#/Vol] 6.1 10*3/uL 2.0-7.7 [facility] Alanine Aminotransferas (SGP T)on 01-23-2025 ALT [Catalytic activity/Vol] 11 U/L Normal <=34 [facility] Comment on above: Performed By: #### L 501.4100, L3890.6301, L501.4600, L100.0100, L501.9520, L001.0705, L501.2300, L501.4305, L501.4405, L500.4100, L506.1001 ####[facility] [address] [place], [place], [id number] Alkaline Phosphataseon 01-23 ALK PHOS 126 U/L High 35-104 [facility] Comment on above: Performed By: #### L 501.4100, L3890.6301, L501.4600, L100.0100, L501.9520, L001.0705, L501.2300, L501.4305, L501.4405, L500.4100, L506.1001 ####[facility] [address] [facility] [address] [place], [place], [id number] Anion gap in Serum or Plasma Ordered By: Jeremy Mcgarry on 01-23-2025 Anion gap [Moles/Vol] 17 mmol/L High 5-[address] [facility] Automated lymphocyte count a s percentage of total leukocytesOrdered By: Vincent Flores on 01-23-2025 Lymphocytes/100 WBC Auto (Unsp spec) 16.8 % Low 19-41 [facility] BUN/creatinine ratioOrdered By: Jeremy Mcgarry on 01-23-2025 Urea nitrogen/Creatinine [Mass ratio] 29.1 mg/mg High 10-20 [facility] Basophil percentageOrdered B y: Vincent Flores on 01-23-2025 Basophils/100 WBC (Bld) 0.8 % 0-1 [facility] Bilirubin, totalOrdered By: Vincent Flores on 01-23-2025 Bilirubin [Mass/Vol] 1.15 mg/dL 0.00-1.30 [facility] Blood manual differential co mment interpretation (narrative result)Ordered By: Vincent Flores on 01-23-2025 Manual differential comment Cristhian (Bld) [Interp] SCANNED [facility] Blood polychromasia detectio n by light microscopyOrdered By: Vincent Flores on 01-23-2025 Polychromasia LM Ql (Bld) 1+ [facility] CBC W/Diff, Automatedon 01-03 HYPOCHROMASIA 3+ Normal [facility] Comment on above: Performed By: #### L 501.4100, L3890.6301, L501.4600, L100.0100, L501.9520, L001.0705, L501.2300, L501.4305, L501.4405, L500.4100, L506.1001 ####[facility] [address] [place], [place], [address] Anisocytosis Ql (Bld) 2+ Normal [facility] Comment on above: Performed By: #### L 501.4100, L3890.6301, L501.4600, L100.0100, L501.9520, L001.0705, L501.2300, L501.4305, L501.4405, L500.4100, L506.1001 ####[facility] [address] [place], [address] PLT EST ADEQUATE Normal ADEQ [facility] Comment on above: Performed By: #### L 501.4100, L3890.6301, L501.4600, L100.0100, L501.9520, L001.0705, L501.2300, L501.4305, L501.4405, L500.4100, L506.1001 ####[facility] [address] [place], [address] POLYCHROMASIA 1+ Normal [facility] Comment on above: Performed By: #### L 501.4100, L3890.6301, L501.4600, L100.0100, L501.9520, L001.0705, L501.2300, L501.4305, L501.4405, L500.4100, L506.1001 ####[facility] [address] [place], [address] SMEAR COMMENT SCANNED Normal [facility] Comment on above: Performed By: #### L 501.4100, L3890.6301, L501.4600, L100.0100, L501.9520, L001.0705, L501.2300, L501.4305, L501.4405, L500.4100, L506.1001 ####[facility] [address] [place], [address] CBC-Complete Blood Cnt No Di ffon 01-23-2025 SCAN INDICATED? YES- FLAGS NOTED Normal [facility] Comment on above: Result Comment: DR. FLORES ORDERED CBCD Performed By: #### L 501.0900, L501.5200, L500.3600, L100.0500 ####[facility] [address] [place], [place], [id number] Erythrocyte distribution width (RBC) [Ratio] 20.1 % High 11.6-14.6 [facility] Comment on above: Result Comment: DR. FLORES ORDERED CBCD Performed By: #### L 501.0900, L501.5200, L500.3600, L100.0500 ####[facility] [address] [place], [address] Hematocrit (Bld) [Volume fraction] 28.2 % Low 37-47 [facility] Comment on above: Result Comment: DR. FLORES ORDERED CBCD Performed By: #### L 501.0900, L501.5200, L500.3600, L100.0500 ####[facility] [address] [place], [address] Hemoglobin (Bld) [Mass/Vol] 9.0 g/dL Low 12.0-15.0 [facility] Comment on above: Result Comment: DR. FLORES ORDERED CBCD Performed By: #### L 501.0900, L501.5200, L500.3600, L100.0500 ####[facility] [address] [place], [address] MCH (RBC) [Entitic mass] 28.1 pg Normal 27.0-32.0 [facility] Comment on above: Result Comment: DR. FLORES ORDERED CBCD Performed By: #### L 501.0900, L501.5200, L500.3600, L100.0500 ####[facility] [address] [place], [address] MCHC (RBC) [Mass/Vol] 31.9 g/dL Low 32-[address] [facility] Comment on above: Result Comment: DR. FLORES ORDERED CBCD Performed By: #### L 501.0900, L501.5200, L500.3600, L100.0500 ####[facility] [address] [place], [address] MCV (RBC) [Entitic vol] 88.1 fL Normal 81-99 [facility] Comment on above: Result Comment: DR. FLORES ORDERED CBCD Performed By: #### L 501.0900, L501.5200, L500.3600, L100.0500 ####[facility] [address] [place], [address] Platelet mean volume (Bld) [Entitic vol] 9.8 fL Normal 6.2-12.0 [facility] Comment on above: Result Comment: DR. FLORES ORDERED CBCD Performed By: #### L 501.0900, L501.5200, L500.3600, L100.0500 ####[facility] [address] [place], [address] Platelets (Bld) [#/Vol] 214 10*3/uL Normal 150-450 [facility] Comment on above: Result Comment: DR. FLORES ORDERED CBCD Performed By: #### L 501.0900, L501.5200, L500.3600, L100.0500 ####[facility] [address] [place], [address] POSITIVE MORPH YES Abnormal [facility] Comment on above: Result Comment: DR. FLORES ORDERED CBCD Performed By: #### L 501.0900, L501.5200, L500.3600, L100.0500 ####[facility] [address] [place], [address] RBC (Bld) [#/Vol] 3.20 10*6/uL Low 4.2-5.[address] [facility] Comment on above: Result Comment: DR. FLORES ORDERED CBCD Performed By: #### L 501.0900, L501.5200, L500.3600, L100.0500 ####[facility] [address] [place], [address] RDW SD 64.7 fl High 35.1-43.9 [facility] Comment on above: Result Comment: DR. FLORES ORDERED CBCD Performed By: #### L 501.0900, L501.5200, L500.3600, L100.0500 ####[facility] [address] [place], [address] WBC (Bld) [#/Vol] 8.9 10*3/uL Normal 4.4-11.0 [facility] Comment on above: Result Comment: DR. FLORES ORDERED CBCD Performed By: #### L 501.0900, L501.5200, L500.3600, L100.0500 ####[facility] [address] [place], [address] Calculated very low density lipoprotein (VLDL) cholesterol measurementOrdered By: Vincent Flores on 01-23-2025 Calculated very low density lipoprotein (VLDL) cholesterol measurement 10 mg/dL 5-40 [facility] Carbon dioxide, total [Moles /volume] in Central venous bloodOrdered By: Jeremy Mcgarry on 01-23-2025 CO2 [Moles/Vol] 23.7 mmol/L 21.0-32.0 [facility] Chloride assayOrdered By: Darío Mcgarry on 01-23-2025 Chloride [Moles/Vol] 91 mmol/L Low 98-108 [facility] Eosinophil percentageOrdered By: Vincent Flores on 01-23-2025 Eosinophils/100 WBC (Bld) 1.0 % 0-5 [facility] Erythrocyte distribution wid th ratioOrdered By: Vincent Flores on 01-23-2025 Erythrocyte distribution width (RBC) [Ratio] 20.2 % High 11.6-14.6 [facility] Erythrocyte distribution wid th standard deviationOrdered By: Vincent Flores on 01-23-2025 Erythrocyte distribution width (RBC) [Ratio] 65.1 fl High 35.1-43.9 [facility] Glomerular filtration rate ( GFR) estimation/1.73 sq m using serum, plasma, or whole bOrdered By: Jeremy Mcgarry on 01-23-2025 GFR/1.73 sq M.predicted among non-blacks MDRD (S/P/Bld) [Vol rate/Area] 25 mL/min/{1.73_m2} Low >60 [facility] Comment on above: mL/min/1.73m2 CKD-EP I Creatinine Equation (2020) Hematocrit Auto (Bld) [Volum e fraction]Ordered By: Vincent Flores on 01-23-2025 Hematocrit (Bld) [Volume fraction] 28.4 % Low 37-47 [facility] Hemoglobin measurementOrdere d By: Vincent Flores on 01-23-2025 Hemoglobin (Bld) [Mass/Vol] 9.4 g/dL Low 12.0-15.0 [facility] Hepatitis C Antibodyon 01-23 Hepatitis C Ab Non-Reactive Normal Nonreactive [facility] Comment on above: Result Comment: Reac tive: Presumptive evidence of antibodies to HCV. [facility] recommendations for supplemental testing.Non-Reactive: Antibodies to HCV were not detected; does notexclude the possibility of exposure to HCVReactive Results are presumptive evidence of antibodies toHCV. Follow CDC recommendations for supplemental testing.Order confirmation testing: HCV Quant by PCR testing -HCVPCR #[id number] Non Reactive: < 0.8 Equivocal: >/= 0.8 to < 1.0 Reactive: >/= 1.0The CDC requires that a reactive/equivocal HCV antibodyresult be sent out for confirmation. HCV Quant by PCRtesting. Performed By: #### L 501.4100, L3890.6301, L501.4600, L100.0100, L501.9520, L001.0705, L501.2300, L501.4305, L501.4405, L500.4100, L506.1001 ####[facility] [address] [place], [place], [id number] Hypochromatic red blood cell detectionOrdered By: Vincent Flores on 01-23-2025 Hypochromia Ql (Bld) 3+ [facility] Immature granulocytes/100 WB C Auto (Bld)Ordered By: Vincent Flores on 01-23-2025 Immature granulocytes/100 WBC (Bld) 0.300 % 0.0-0.9 [facility] Comment on above: IG% - Immature Granu locytes (promyelocytes, myelocytes and metamyelocytes) > 1% indicates that a LEFT SHIFT is Present. LDL calc ser/plasOrdered By: Vincent Flores on 01-23-2025 Cholesterol in LDL [Mass/Vol] 25 mg/dL [facility] Comment on above: Pjwnshvdqt=387-462 m g/dL & Higher Wygs=314 mg/dL or greater Laboratory - Chemistry and C hemistry - challengeOrdered By: Vincent Flores on 01-23-2025 AST [Catalytic activity/Vol] 24 U/L <32 [facility] Laboratory - Hematology and Cell countsOrdered By: Vincent Flores on 01-23-2025 Anisocytosis Ql (Bld) 2+ [facility] Lipid Profileon 01-23-2025 CHOL:HDL 2.00 Normal [facility] Comment on above: Performed By: #### L 501.4100, L3890.6301, L501.4600, L100.0100, L501.9520, L001.0705, L501.2300, L501.4305, L501.4405, L500.4100, L506.1001 ####[facility] [address] [place], [place], [phone] Cholesterol [Mass/Vol] 72 mg/dL Normal <=[address] [facility] Comment on above: Result Comment: Chol esterol level, Desirable <200 mg/dLBorderline high cholesterol 200-239 mg/dLHigh cholesterol >=240 mg/dLRecommendations of the NCEP Adult Treatment Panel for thefollowing risk-cutoff thresholds for the [place] Americanpulation. Performed By: #### L 501.4100, L3890.6301, L501.4600, L100.0100, L501.9520, L001.0705, L501.2300, L501.4305, L501.4405, L500.4100, L506.1001 ####[facility] [address] [place], [address] Cholesterol in HDL [Mass/Vol] 36 mg/dL Low [facility] Comment on above: Result Comment: [place] onal Cholesterol Education Program (NCEP) guidelines:<40 mg/dL: Low HDL-cholesterol (major risk factor for CHD)>= 60 mg/dL: High HDL-cholesterol (negative risk factor forCHD)HDL-cholesterol is affected by a number of factors, e.g.smoking, exercise, hormones, sex and age. Performed By: #### L 501.4100, L3890.6301, L501.4600, L100.0100, L501.9520, L001.0705, L501.2300, L501.4305, L501.4405, L500.4100, L506.1001 ####[facility] [address] [place], [address] Cholesterol in LDL [Mass/Vol] 25 mg/dL Normal [facility] Comment on above: Result Comment: Bord jrizwq=888-933 mg/dL Higher Dvcc=686 mg/dL or greater Performed By: #### L 501.4100, L3890.6301, L501.4600, L100.0100, L501.9520, L001.0705, L501.2300, L501.4305, L501.4405, L500.4100, L506.1001 ####[facility] [address] [place], [address] Cholesterol in VLDL [Mass/Vol] 10 mg/dL Normal 5-40 [facility] Comment on above: Performed By: #### L 501.4100, L3890.6301, L501.4600, L100.0100, L501.9520, L001.0705, L501.2300, L501.4305, L501.4405, L500.4100, L506.1001 ####[facility] [address] [place], [place], [id number] Triglyceride [Mass/Vol] 52 mg/dL Normal [facility] Comment on above: Result Comment: The drugs N-Acetylcysteine and Metamizole may falselydepress this assay.Normal range: <150 mg/dLBorderline High: 150-199 mg/dLHigh: 200-499 mg/dLVery High: >500 mg/dL Performed By: #### L 501.4100, L3890.6301, L501.4600, L100.0100, L501.9520, L001.0705, L501.2300, L501.4305, L501.4405, L500.4100, L506.1001 ####[facility] [address] [place], [place], [address] MCV (mean corpuscular volume ) determinationOrdered By: Vincent Flores on 01-23-2025 MCV (RBC) [Entitic vol] 87.7 fL 81-99 [facility] Magnesiumon 01-23-2025 Magnesium [Mass/Vol] 2.0 mg/dL Normal 1.5-2.2 [facility] Comment on above: Order Comment: DR. Bruce LACEY ORDERED CBCDPLEASE CC COPY OF RENAL AND MG TO DR. FLORES Performed By: #### L 501.0900, L501.5200, L500.3600, L100.0500 ####[facility] [address] [place], [place], [address] Magnesium measurement (mass/ volume)Ordered By: Jeremy Mcgarry on 01-23-2025 Magnesium (Unsp spec) [Mass/Vol] 2.0 mg/dL 1.5-2.2 [facility] Mean corpuscular hemoglobin (MCH) determinationOrdered By: Vincent Flores on 01-23-2025 MCH (RBC) [Entitic mass] 29.0 pg 27.0-32.0 [facility] Mean corpuscular hemoglobin concentration (MCHC) determinationOrdered By: Vincent Flores on 01-23-2025 MCHC (RBC) [Mass/Vol] 33.1 g/dL 32-[address] [facility] Mean platelet volume determi nationOrdered By: Vincent Flores on 01-23-2025 Platelet mean volume (Bld) [Entitic vol] 9.9 fL 6.2-12.0 [facility] Monocyte percentageOrdered B y: Vincent Flores on 01-23-2025 Monocytes/100 WBC (Bld) 15.6 % High 0-10 [facility] Neutrophil percentageOrdered By: Vincent Flores on 01-23-2025 Neutrophils/100 WBC (Bld) 65.5 % 47-70 [facility] No Panel InformationOrdered By: Vincent Flores on 01-23-2025 2+ [facility] 24 U/L <32 [facility] Nucleated red blood cell per centageOrdered By: Vincent Flores on 01-23-2025 Nucleated RBC/100 WBC (Bld) [Ratio] 0 % 0-5 [facility] Phosphoruson 01-23-2025 Phosphate [Mass/Vol] 3.1 mg/dL Normal 2.7-4.5 [facility] Comment on above: Performed By: #### L 501.4100, L3890.6301, L501.4600, L100.0100, L501.9520, L001.0705, L501.2300, L501.4305, L501.4405, L500.4100, L506.1001 ####[facility] [address] [place], [address] Platelet countOrdered By: Ishmael Flores on 01-23-2025 Platelets (Bld) [#/Vol] 224 10*3/uL 150-450 [facility] Platelet estimateOrdered By: Vincent Flores on 01-23-2025 Platelets LM Ql (Bld) ADEQUATE ADEQ [facility] Potassium measurement (mass/ volume)Ordered By: Jeremy Mcgarry on 01-23-2025 Potassium (Unsp spec) [Mass/Vol] 3.8 mmol/L 3.3-5.1 [facility] Protein+Creatinine Ratio,Uri neon 01-23-2025 PROT:CRE RATIO 477 mg/g CRE High 0-200 [facility] Comment on above: Performed By: #### L 501.0900, L501.5200, L500.3600, L100.0500 ####[facility] [address] [place], [address] Protein (U) [Mass/Vol] 32.2 mg/dL High 0.0-12.[address] [facility] Comment on above: Performed By: #### L 501.0900, L501.5200, L500.3600, L100.0500 ####[facility] [address] [place], [address] UR CREAT 67.50 mg/dL Normal 28.00-217.00 [facility] Comment on above: Performed By: #### L 501.0900, L501.5200, L500.3600, L100.0500 ####[facility] [address] [place], [address] Protein, Totalon 01-23-2025 T PROT 7.4 g/dL Normal 5.9-8.4 [facility] Comment on above: Performed By: #### L 501.4100, L3890.6301, L501.4600, L100.0100, L501.9520, L001.0705, L501.2300, L501.4305, L501.4405, L500.4100, L506.1001 ####[facility] [address] [place], [address] RBC Auto (Bld) [#/Vol]Ordere d By: Vincent Flores on 01-23-2025 RBC (Bld) [#/Vol] 3.24 10*6/uL Low 4.2-5.[address] [facility] Random urine creatinine bijan urement (mass/volume)Ordered By: Jeremy Mcgarry on 01-23-2025 Creatinine Unsp time (U) [Mass/Vol] 67.50 mg/dL 28.00-217.00 [facility] Renal Profileon 01-23-2025 Albumin [Mass/Vol] 4.0 g/dL Normal 3.4-4.8 [facility] Comment on above: Order Comment: DR. Bruce LACEY ORDERED CBCDPLEASE CC COPY OF RENAL AND MG TO DR. FLORES Performed By: #### L 501.0900, L501.5200, L500.3600, L100.0500 ####[facility] [address] [place], [address] BUN/CRE 29.1 RATIO High 10-20 [facility] Comment on above: Order Comment: DR. Bruce LACEY ORDERED CBCDPLEASE CC COPY OF RENAL AND MG TO DR. FLORES Performed By: #### L 501.0900, L501.5200, L500.3600, L100.0500 ####[facility] [address] [place], [address] Calcium [Mass/Vol] 9.5 mg/dL Normal 7.6-11.0 [facility] Comment on above: Order Comment: DR. Bruce LACEY ORDERED CBCDPLEASE CC COPY OF RENAL AND MG TO DR. FLORES Performed By: #### L 501.0900, L501.5200, L500.3600, L100.0500 ####[facility] [address] [place], [address] Chloride [Moles/Vol] 91 mmol/L Low 98-108 [facility] Comment on above: Order Comment: DR. Bruce LACEY ORDERED CBCDPLEASE CC COPY OF RENAL AND MG TO DR. FLORES Performed By: #### L 501.0900, L501.5200, L500.3600, L100.0500 ####[facility] [address] [place], [address] CO2 [Moles/Vol] 23.7 mmol/L Normal 21.0-32.0 [facility] Comment on above: Order Comment: DR. Bruce LACEY ORDERED CBCDPLEASE CC COPY OF RENAL AND MG TO DR. FLORES Performed By: #### L 501.0900, L501.5200, L500.3600, L100.0500 ####[facility] [address] [place], [address] Creatinine [Mass/Vol] 1.97 mg/dL High 0.70-1.[address] [facility] Comment on above: Order Comment: DR. Bruce LACEY ORDERED CBCDPLEASE CC COPY OF RENAL AND MG TO DR. FLORES Performed By: #### L 501.0900, L501.5200, L500.3600, L100.0500 ####[facility] [address] [place], [address] GAP 17 High 5-15 [facility] Comment on above: Order Comment: DR. Bruce LACEY ORDERED CBCDPLEASE CC COPY OF RENAL AND MG TO DR. FLORES Performed By: #### L 501.0900, L501.5200, L500.3600, L100.0500 ####[facility] [address] [place], [address] GFR/1.73 sq M.predicted among non-blacks MDRD (S/P/Bld) [Vol rate/Area] 25 mL/min/{1.73_m2} Low >60 [facility] Comment on above: Order Comment: DR. Bruce LACEY ORDERED CBCDPLEASE CC COPY OF RENAL AND MG TO DR. FLORES Result Comment: mL/m in/1.73m2 CKD-EPI Creatinine Equation (2020) Performed By: #### L 501.0900, L501.5200, L500.3600, L100.0500 ####[facility] [address] [place], [address] Glucose [Mass/Vol] 105 mg/dL High 70-99 [facility] Comment on above: Order Comment: DR. Bruce LACEY ORDERED CBCDPLEASE CC COPY OF RENAL AND MG TO DR. FLORES Performed By: #### L 501.0900, L501.5200, L500.3600, L100.0500 ####[facility] [address] [place], [address] Phosphate [Mass/Vol] 3.1 mg/dL Normal 2.7-4.5 [facility] Comment on above: Order Comment: DR. Bruce LACEY ORDERED CBCDPLEASE CC COPY OF RENAL AND MG TO DR. FLORES Performed By: #### L 501.0900, L501.5200, L500.3600, L100.0500 ####[facility] [address] [place], [address] Potassium [Moles/Vol] 3.8 mmol/L Normal 3.3-5.[address] [facility] Comment on above: Order Comment: DR. Bruce LACEY ORDERED CBCDPLEASE CC COPY OF RENAL AND MG TO DR. FLORES Performed By: #### L 501.0900, L501.5200, L500.3600, L100.0500 ####[facility] [address] [place], [address] Sodium [Moles/Vol] 131 mmol/L Low 133-145 [facility] Comment on above: Order Comment: DR. Bruce LACEY ORDERED CBCDPLEASE CC COPY OF RENAL AND MG TO DR. FLORES Performed By: #### L 501.0900, L501.5200, L500.3600, L100.0500 ####[facility] [address] [place], [address] Urea nitrogen [Mass/Vol] 57 mg/dL High 4-19 [facility] Comment on above: Order Comment: DR. Bruce LACEY ORDERED CBCDPLEASE CC COPY OF RENAL AND MG TO DR. FLORES Performed By: #### L 501.0900, L501.5200, L500.3600, L100.0500 ####[facility] [address] [place], [address] Screening total cholesterol/ high density lipoprotein (HDL) cholesterol ratioOrdered By: Vincent Flores on 01-23-2025 Cholesterol.total/Gin sterol in HDL [Mass ratio] 2.00 {ratio} [facility] Serum creatinine measurement (mass/volume)Ordered By: Jeremy Mcgarry on 01-23-2025 Creatinine [Mass/Vol] 1.97 mg/dL High 0.70-1.[address] [facility] Serum glucose measurement (m ass/volume)Ordered By: Jeremy Mcgarry on 01-23-2025 Glucose [Mass/Vol] 105 mg/dL High 70-99 [facility] Serum or plasma alanine craven otransferase (ALT) measurementOrdered By: Vincent Flores on 01-23-2025 ALT [Catalytic activity/Vol] 11 U/L <35 [facility] Serum or plasma albumin bijan urement (mass/volume)Ordered By: Jeremy Mcgarry on 01-23-2025 Albumin [Mass/Vol] 4.0 g/dL 3.4-4.8 [facility] Serum or plasma alkaline da sphatase measurementOrdered By: Vincent Flores on 01-23-2025 ALP [Catalytic activity/Vol] 126 U/L High 35-104 [facility] Serum or plasma calcium bijan urement (mass/volume)Ordered By: Jeremy Mcgarry on 01-23-2025 Calcium [Mass/Vol] 9.5 mg/dL 7.6-11.0 [facility] Serum or plasma cholesterol in HDL measurement (mass/volume)Ordered By: Vincent Flores on 01-23-2025 Cholesterol in HDL [Mass/Vol] 36 mg/dL Low >40 [facility] Comment on above: National Cholesterol Education Program (NCEP) guidelines:<40 mg/dL: Low HDL-cholesterol (major risk factor for CHD)>= 60 mg/dL: High HDL-cholesterol (negative risk factor for CHD)HDL-cholesterol is affected by a number of factors, e.g. smoking, exercise, hormones, sex and age. Serum or plasma cholesterol measurement (mass/volume)Ordered By: Vincent Flores on 01-23-2025 Cholesterol [Mass/Vol] 72 mg/dL <[address] [facility] Comment on above: Cholesterol level, D esirable <200 mg/dLBorderline high cholesterol 200-239 mg/dLHigh cholesterol >=240 mg/dLRecommendations of the NCEP Adult Treatment Panel for the following risk-cutoff thresholds for the [place] population. Serum or plasma urea nitroge n measurement (mass/volume)Ordered By: Jeremy Mcgarry on 01-23-2025 Urea nitrogen [Mass/Vol] 57 mg/dL High 4-19 [facility] Sodium levelOrdered By: Alvaro Mcgarry on 01-23-2025 Sodium [Moles/Vol] 131 mmol/L Low 133-145 [facility] TSH DL <= 0.005 mIU/L QnOrde red By: Vincent Flores on 01-23-2025 TSH Qn 6.900 uIU/mL High 0.300-4.200 [facility] Thyroid Stim Hormone (TSH)on 01-23-2025 TSH 6.900 uIU/mL High 0.300-4.200 [facility] Comment on above: Performed By: #### L 501.4100, L3890.6301, L501.4600, L100.0100, L501.9520, L001.0705, L501.2300, L501.4305, L501.4405, L500.4100, L506.1001 ####[facility] [address] [place], [place], [id number] Total Bilirubinon 01-23-2025 Bilirubin [Mass/Vol] 1.15 mg/dL Normal 0.00-1.30 [facility] Comment on above: Performed By: #### L 501.4100, L3890.6301, L501.4600, L100.0100, L501.9520, L001.0705, L501.2300, L501.4305, L501.4405, L500.4100, L506.1001 ####[facility] [address] [place], [place], [id number] Total proteinOrdered By: Vincent Flores on 01-23-2025 Protein [Mass/Vol] 7.4 g/dL 5.9-8.4 [facility] Triglycerides measurementOrd ered By: Vincent Flores on 01-23-2025 Triglyceride [Mass/Vol] 52 mg/dL <199 [facility] Comment on above: The drugs N-Acetylcy steine and Metamizole may falsely depress this assay. Normal range: <150 mg/dLBorderline High: 150-199 mg/dLHigh: 200-499 mg/dLVery High: >500 mg/dL Urine protein measurement (m ass/volume)Ordered By: Jeremy Mcgarry on 01-23-2025 Protein (U) [Mass/Vol] 32.2 mg/dL High 0.0-12.[address] [facility] Urine protein/creatinine mas s ratioOrdered By: Jeremy Mcgarry on 01-23-2025 Protein/Creatinine (U) [Mass ratio] 477 mg/g CRE High 0-200 [facility] Vitamin D,25 Hydroxyon 01-23 Vitamin D 25-OH 34.9 ng/mL Normal 30-100 [facility] Comment on above: Result Comment: Haydee min D StatusDeficiency: <20 ng/mL (50nmol/L)Insufficiency: 20-30 ng/mL (50-75 nmol/L)Sufficiency: 30-100 ng/mL (75-250 nmol/L)Toxicity: >100 ng/mL (>250 nmol/L) Performed By: #### L 501.4100, L3890.6301, L501.4600, L100.0100, L501.9520, L001.0705, L501.2300, L501.4305, L501.4405, L500.4100, L506.1001 ####[facility] [address] [place], [address] White blood cell (WBC) count Ordered By: Vincent Flores on 01-23-2025 WBC (Bld) [#/Vol] 9.3 10*3/uL 4.4-11.0 [facility] Anion gap in Serum or Plasma Ordered By: Dianne Stovall on 01-11-2025 Anion gap [Moles/Vol] 13 mmol/L 5-[address] [facility] BUN/creatinine ratioOrdered By: Dianne Stovall on 01-11-2025 Urea nitrogen/Creatinine [Mass ratio] 20.6 mg/mg High 04-23 [facility] Basic Metabolic Profile (BMP )on 01-11-2025 BUN/CRE 20.6 RATIO High 04-23 [facility] Comment on above: Performed By: #### L 500.2500 ####[facility] [address] [place], [address] Calcium [Mass/Vol] 9.0 mg/dL Normal 7.6-11.0 [facility] Comment on above: Performed By: #### L 500.2500 ####[facility] [address] [place], [address] Chloride [Moles/Vol] 95 mmol/L Low 98-108 [facility] Comment on above: Performed By: #### L 500.2500 ####[facility] [address] [place], [address] CO2 [Moles/Vol] 25.5 mmol/L Normal 21.0-32.0 [facility] Comment on above: Performed By: #### L 500.2500 ####[facility] [address] [place], [address] Creatinine [Mass/Vol] 1.97 mg/dL High 0.70-1.[address] [facility] Comment on above: Performed By: #### L 500.2500 ####[facility] [address] [place], [address] ECRCL 21.99 ml/min Low 50-250 [facility] Comment on above: Performed By: #### L 500.2500 ####[facility] [address] [place], [address] GAP 13 Normal 5-15 [facility] Comment on above: Performed By: #### L 500.2500 ####[facility] [address] [place], [address] GFR/1.73 sq M.predicted among non-blacks MDRD (S/P/Bld) [Vol rate/Area] 25 mL/min/{1.73_m2} Low >60 [facility] Comment on above: Result Comment: mL/m in/1.73m2 CKD-EPI Creatinine Equation (2020) Performed By: #### L 500.2500 ####[facility] [address] [place], [address] Glucose [Mass/Vol] 117 mg/dL High 70-99 [facility] Comment on above: Performed By: #### L 500.2500 ####[facility] [address] [place], [address] Potassium [Moles/Vol] 4.4 mmol/L Normal 3.3-5.[address] [facility] Comment on above: Performed By: #### L 500.2500 ####[facility] [address] [place], [address] Sodium [Moles/Vol] 134 mmol/L Normal 133-145 [facility] Comment on above: Performed By: #### L 500.2500 ####[facility] [address] [place], [address] Urea nitrogen [Mass/Vol] 41 mg/dL High 4-19 [facility] Comment on above: Performed By: #### L 500.2500 ####[facility] [address] [place], [address] Bedside Glucoseon 01-11-2025 FINGERSTICK GLU 116 mg/dL High 74-106 [facility] Comment on above: Result Comment: JOHNSON MCCORMACK OF PATIENT CARE PER NURSING PROTOCOL Performed By: #### L 501.080 ####[facility] [address] [place], [address] Carbon dioxide, total [Moles /volume] in Central venous bloodOrdered By: Dianne Stovall on 01-11-2025 CO2 [Moles/Vol] 25.5 mmol/L 21.0-32.0 [facility] Chloride assayOrdered By: Beryl Stovall on 01-11-2025 Chloride [Moles/Vol] 95 mmol/L Low 98-108 [facility] Discharge Instructionon 01-02 Discharge Instruction Normal [facility] Glomerular filtration rate ( GFR) estimation/1.73 sq m using serum, plasma, or whole bOrdered By: Dianne Stovall on 01-11-2025 GFR/1.73 sq M.predicted among non-blacks MDRD (S/P/Bld) [Vol rate/Area] 25 mL/min/{1.73_m2} Low >60 [facility] Comment on above: mL/min/1.73m2 CKD-EP I Creatinine Equation (2020) [facility] deOrdered By: Dianne Stovall on 01-11-2025 Glucose [Mass/Vol] 116 mg/dL High 74-106 [facility] Comment on above: MANAGEMENT OF PATIEN T CARE PER NURSING PROTOCOL Potassium measurement (mass/ volume)Ordered By: Dianne Stovall on 01-11-2025 Potassium (Unsp spec) [Mass/Vol] 4.4 mmol/L 3.3-5.1 [facility] Serum creatinine measurement (mass/volume)Ordered By: Dianne Stovall on 01-11-2025 Creatinine [Mass/Vol] 1.97 mg/dL High 0.70-1.[address] [facility] Serum glucose measurement (m ass/volume)Ordered By: Dianne Stovall on 01-11-2025 Glucose [Mass/Vol] 117 mg/dL High 70-99 [facility] Serum or plasma calcium bijan urement (mass/volume)Ordered By: Dianne Stovall on 01-11-2025 Calcium [Mass/Vol] 9.0 mg/dL 7.6-11.0 [facility] Serum or plasma urea nitroge n measurement (mass/volume)Ordered By: Dianne Stovall on 01-11-2025 Urea nitrogen [Mass/Vol] 41 mg/dL High 4-19 [facility] Sodium levelOrdered By: Dianne Stovall on 01-11-2025 Sodium [Moles/Vol] 134 mmol/L 133-145 [facility] Bedside Glucoseon 01-10-2025 FINGERSTICK GLU 126 mg/dL High 74-106 [facility] Comment on above: Result Comment: JOHNSON MCCORMACK OF PATIENT CARE PER NURSING PROTOCOL Performed By: #### L 501.080 ####[facility] [address] [place], [address] FINGERSTICK GLU 133 mg/dL High 74-106 [facility] Comment on above: Result Comment: JOHNSON GEMENT OF PATIENT CARE PER NURSING PROTOCOL Performed By: #### L 501.080 ####[facility] [address] [place], [address] FINGERSTICK GLU 134 mg/dL High 74-106 [facility] Comment on above: Result Comment: JOHNSON GEMENT OF PATIENT CARE PER NURSING PROTOCOL Performed By: #### L 501.080 ####[facility] [address] [place], [address] Basic Metabolic Profile (BMP )on 01-09-2025 BUN/CRE 23.6 RATIO High 10-20 [facility] Comment on above: Performed By: #### L 500.2500 ####[facility] [address] [place], [address] Calcium [Mass/Vol] 8.9 mg/dL Normal 7.6-11.0 [facility] Comment on above: Performed By: #### L 500.2500 ####[facility] [address] [place], [address] Chloride [Moles/Vol] 95 mmol/L Low 98-108 [facility] Comment on above: Performed By: #### L 500.2500 ####[facility] [address] [place], [address] CO2 [Moles/Vol] 24.5 mmol/L Normal 21.0-32.0 [facility] Comment on above: Performed By: #### L 500.2500 ####[facility] [address] [place], [address] Creatinine [Mass/Vol] 1.85 mg/dL High 0.70-1.[address] [facility] Comment on above: Performed By: #### L 500.2500 ####[facility] [address] [place], [address] ECRCL 23.14 ml/min Low 50-250 [facility] Comment on above: Performed By: #### L 500.2500 ####[facility] [address] [place], [address] GAP 13 Normal 5-15 [facility] Comment on above: Performed By: #### L 500.2500 ####[facility] [address] [place], [address] GFR/1.73 sq M.predicted among non-blacks MDRD (S/P/Bld) [Vol rate/Area] 27 mL/min/{1.73_m2} Low >60 [facility] Comment on above: Result Comment: mL/m in/1.73m2 CKD-EPI Creatinine Equation (2020) Performed By: #### L 500.2500 ####[facility] [address] [place], [address] Glucose [Mass/Vol] 135 mg/dL High 70-99 [facility] Comment on above: Performed By: #### L 500.2500 ####[facility] [address] [place], [address] Potassium [Moles/Vol] 4.5 mmol/L Normal 3.3-5.[address] [facility] Comment on above: Performed By: #### L 500.2500 ####[facility] [address] [place], [address] Sodium [Moles/Vol] 133 mmol/L Normal 133-145 [facility] Comment on above: Performed By: #### L 500.2500 ####[facility] [address] [place], [address] Urea nitrogen [Mass/Vol] 44 mg/dL High 4-19 [facility] Comment on above: Performed By: #### L 500.2500 ####[facility] [address] [place], [address] Bedside Glucoseon 01-09-2025 FINGERSTICK GLU 111 mg/dL High 74-106 [facility] Comment on above: Result Comment: JOHNSON GEMENT OF PATIENT CARE PER NURSING PROTOCOL Performed By: #### L 501.080 ####[facility] [address] [place], [address] FINGERSTICK GLU 214 mg/dL High 74-106 [facility] Comment on above: Result Comment: JOHNSON GEMENT OF PATIENT CARE PER NURSING PROTOCOL Performed By: #### L 501.080 ####[facility] [address] [place], [address] FINGERSTICK GLU 132 mg/dL High 74-106 [facility] Comment on above: Result Comment: JOHNSON GEMENT OF PATIENT CARE PER NURSING PROTOCOL Performed By: #### L 501.080 ####[facility] [address] [place], [address] Absolute lymphocyte countOrd ered By: Radha Heller on 01-08-2025 Lymphocytes Auto (Unsp spec) [#/Vol] 2.11 10*3/uL 0.83-4.51 [facility] Absolute neutrophil countOrd ered By: Radha Heller on 01-08-2025 Neutrophils (Bld) [#/Vol] 3.0 10*3/uL 2.0-7.7 [facility] Automated lymphocyte count a s percentage of total leukocytesOrdered By: Radha Heller on 01-08-2025 Lymphocytes/100 WBC Auto (Unsp spec) 33.8 % 19-41 [facility] Basic Metabolic Profile (BMP )on 01-08-2025 BUN/CRE 24.9 RATIO High 10-20 [facility] Comment on above: Performed By: #### L 501.5200, L501.9520, L100.0100, L500.2500, L500.4100 ####[facility] [address] [place], [address] Calcium [Mass/Vol] 8.8 mg/dL Normal 7.6-11.0 [facility] Comment on above: Performed By: #### L 501.5200, L501.9520, L100.0100, L500.2500, L500.4100 ####[facility] [address] [place], [address] Chloride [Moles/Vol] 93 mmol/L Low 98-108 [facility] Comment on above: Performed By: #### L 501.5200, L501.9520, L100.0100, L500.2500, L500.4100 ####[facility] [address] [place], [address] CO2 [Moles/Vol] 25.7 mmol/L Normal 21.0-32.0 [facility] Comment on above: Performed By: #### L 501.5200, L501.9520, L100.0100, L500.2500, L500.4100 ####[facility] [address] [place], [address] Creatinine [Mass/Vol] 1.79 mg/dL High 0.70-1.[address] [facility] Comment on above: Performed By: #### L 501.5200, L501.9520, L100.0100, L500.2500, L500.4100 ####[facility] [address] [place], [address] ECRCL 23.72 ml/min Low 50-250 [facility] Comment on above: Performed By: #### L 501.5200, L501.9520, L100.0100, L500.2500, L500.4100 ####[facility] [address] [place], [address] GAP 12 Normal 5-15 [facility] Comment on above: Performed By: #### L 501.5200, L501.9520, L100.0100, L500.2500, L500.4100 ####[facility] [address] [place], [address] GFR/1.73 sq M.predicted among non-blacks MDRD (S/P/Bld) [Vol rate/Area] 28 mL/min/{1.73_m2} Low >60 [facility] Comment on above: Result Comment: mL/m in/1.73m2 CKD-EPI Creatinine Equation (2020) Performed By: #### L 501.5200, L501.9520, L100.0100, L500.2500, L500.4100 ####[facility] [address] [place], [address] Glucose [Mass/Vol] 129 mg/dL High 70-99 [facility] Comment on above: Performed By: #### L 501.5200, L501.9520, L100.0100, L500.2500, L500.4100 ####[facility] [address] [place], [address] Potassium [Moles/Vol] 4.1 mmol/L Normal 3.3-5.[address] [facility] Comment on above: Performed By: #### L 501.5200, L501.9520, L100.0100, L500.2500, L500.4100 ####[facility] [address] [place], [address] Sodium [Moles/Vol] 130 mmol/L Low 133-145 [facility] Comment on above: Performed By: #### L 501.5200, L501.9520, L100.0100, L500.2500, L500.4100 ####[facility] [address] [place], [address] Urea nitrogen [Mass/Vol] 45 mg/dL High 4-19 [facility] Comment on above: Performed By: #### L 501.5200, L501.9520, L100.0100, L500.2500, L500.4100 ####[facility] [address] [place], [address] Basophil percentageOrdered B y: Radha Heller on 01-08-2025 Basophils/100 WBC (Bld) 1.0 % 0-1 [facility] Bedside Glucoseon 01-08-2025 FINGERSTICK GLU 184 mg/dL High 74-106 [facility] Comment on above: Result Comment: JOHNSON GEMENT OF PATIENT CARE PER NURSING PROTOCOL Performed By: #### L 501.080 ####[facility] [address] [place], [address] FINGERSTICK GLU 136 mg/dL High 74-106 [facility] Comment on above: Result Comment: JOHNSON GEMENT OF PATIENT CARE PER NURSING PROTOCOL Performed By: #### L 501.080 ####[facility] [address] [place], [address] FINGERSTICK GLU 124 mg/dL High 74-106 [facility] Comment on above: Result Comment: JOHNSON GEMENT OF PATIENT CARE PER NURSING PROTOCOL Performed By: #### L 501.080 ####[facility] [address] [place], [address] Blood manual differential co mment interpretation (narrative result)Ordered By: Radha Heller on 01-08-2025 Manual differential comment Cristhian (Bld) [Interp] SCANNED [facility] CBC W/Diff, Automatedon RED CELL MORPH NORM C+C Normal NORM C C [facility] Comment on above: Performed By: #### L 501.5200, L501.9520, L100.0100, L500.2500, L500.4100 ####[facility] [address] [place], [address] PLT EST ADEQUATE Normal ADEQ [facility] Comment on above: Performed By: #### L 501.5200, L501.9520, L100.0100, L500.2500, L500.4100 ####[facility] [address] [place], [address] SMEAR COMMENT SCANNED Normal [facility] Comment on above: Performed By: #### L 501.5200, L501.9520, L100.0100, L500.2500, L500.4100 ####[facility] [address] [place], [address] Calculated very low density lipoprotein (VLDL) cholesterol measurementOrdered By: Radha Heller on 01-08-2025 Calculated very low density lipoprotein (VLDL) cholesterol measurement 14 mg/dL 5-40 [facility] Carotid Duplex Ultrasoundon 01-08-2025 Carotid Duplex Ultrasound Normal [facility] Consultation - Nephrologyon 01-08-2025 Consultation - Nephrology Normal [facility] Discharge Instructionon Discharge Instruction Normal [facility] Duplex ultrasound of carotid artery reportOrdered By: Abundio Turcios on 01-08-2025 Study report [facility] [address] [place] [address] Carotid Duplex Ultrasound 01/08/25 0841 MR#: [id number] Acct: [id number] Name: BERTA SANCHES Rep #:[id number] : [...] the left vertebral artery. Procedure Carotid Duplex 13113. This is a Carotid Duplex examination using [...] 1244 Date _ Abundio Turcios MD CC: AUTO WHEEL ALIGNMENT SPECIALISTSammy Collazo; Dr. Carla Ha DO; Dr. Dianne Stovall, ~ Date Dictated: 01/08/25 0841 Date Transcribed: 01/08/25 1244 Smt Technician: Signed [facility] Work Phone: Echocardiogram study reportO rdered By: Yaniv Masters on 01-08-2025 Study report [facility] [address] [place] [address] Echo Complete 01/08/25 1058 MR#: [id number] Acct: [id number] Name: BERTA SANCHES Rep #:[id number] : 1945 79 From: Yaniv Foreman Attending Dr: Dr. Dianne Stovall DO Status: ADM IN Ordering Dr: Radha Heller MD Date: Location: [facility] Sex: F C Admitted: 01/07/25 Reason [...] Dictated: 01/08/25 1058 Date Transcribed: 01/08/25 1302 Smt Technician: Signed [facility] Work Phone: Electrocardiogram reportOrde red By: Yaniv Masters on 01-08-2025 EKG study [facility] Services [address] [place] [address] 12 Lead EKG 01/07/25 1257 MR#: [id number] Acct: [id number] Name: BERTA SANCHES SCOTTIE Rep #:[id number] : 1945 79 From: Yaniv Masters MD Attending Dr: Dr. Dianne Stovall DO Status: ADM IN Ordering Dr: Sheree Simmons Date: 01/07/25 Location: [facility] Sex: F C Admitted: 01/07/25 Test [...] ECG Confirmed by YANIV MASTERS MD ([id number]), editorial assistant ROJELIO TADEO ([id number]) on 01/08/2025 11:01:47 AM Referred By: Confirmed By: YANIV MASTERS MD 01/08/25 1101 Date _ Yaniv Masters MD CC: AUTO WHEEL ALIGNMENT SPECIALIST-Ivett Collazo; Dr. Dianne Stovall DO; FERNANDO Uriostegui ~ Signed [facility] Work Phone: Eosinophil percentageOrdered By: Radha Heller on 01-08-2025 Eosinophils/100 WBC (Bld) 2.1 % 0-5 [facility] Erythrocyte distribution wid th ratioOrdered By: Radha Heller on 01-08-2025 Erythrocyte distribution width (RBC) [Ratio] 19.8 % High 11.6-14.6 [facility] Erythrocyte distribution wid th standard deviationOrdered By: Radha Heller on 01-08-2025 Erythrocyte distribution width (RBC) [Ratio] 64.7 fl High 35.1-43.9 [facility] Erythrocyte morphology asses smentOrdered By: Radha Heller on 01-08-2025 RBC morphology finding Nom (Bld) NORM C+C NORMAL NORM C&C [facility] Hematocrit Auto (Bld) [Volum e fraction]Ordered By: Radha Heller on 01-08-2025 Hematocrit (Bld) [Volume fraction] 28.4 % Low 37-47 [facility] Hemoglobin A1con 01-08-2025 HbA1c (Bld) [Mass fraction] 7.0 % High <=5.6 [facility] Comment on above: Result Comment: Norm al < 5.7 % Prediabetic 5.7 - 6.4 % Diabetic >or= 6.5 % Please note range changes. Performed By: #### L 501.9948 ####[facility] [address] [place], [address] Hemoglobin A1c percentageOrd ered By: Carla Barksdale on 01-08-2025 HbA1c (Bld) [Mass fraction] 7.0 % High <5.7 [facility] Comment on above: Normal < 5.7 % Predi abetic 5.7 - 6.4 % Diabetic >or= 6.5 % Please note range changes. Hemoglobin measurementOrdere d By: Radha Heller on 01-08-2025 Hemoglobin (Bld) [Mass/Vol] 9.0 g/dL Low 12.0-15.0 [facility] Immature granulocytes/100 WB C Auto (Bld)Ordered By: Radha Heller on 01-08-2025 Immature granulocytes/100 WBC (Bld) 0.300 % 0.0-0.9 [facility] Comment on above: IG% - Immature Granu locytes (promyelocytes, myelocytes and metamyelocytes) > 1% indicates that a LEFT SHIFT is Present. LDL calc ser/plasOrdered By: Radha Heller on 01-08-2025 Cholesterol in LDL [Mass/Vol] 26 mg/dL [facility] Comment on above: Cfgbtnppvc=477-079 m g/dL & Higher Tlki=388 mg/dL or greater Lipid Profileon 01-08-2025 CHOL:HDL 2.38 Normal [facility] Comment on above: Performed By: #### L 501.5200, L501.9520, L100.0100, L500.2500, L500.4100 ####[facility] [address] [place], [place], [address] Cholesterol [Mass/Vol] 68 mg/dL Normal <=[address] [facility] Comment on above: Result Comment: Chol esterol level, Desirable <200 mg/dLBorderline high cholesterol 200-239 mg/dLHigh cholesterol >=240 mg/dLRecommendations of the NCEP Adult Treatment Panel for thefollowing risk-cutoff thresholds for the [place] [facility]. Performed By: #### L 501.5200, L501.9520, L100.0100, L500.2500, L500.4100 ####[facility] [address] [place], [place], [address] Cholesterol in HDL [Mass/Vol] 29 mg/dL Low [facility] Comment on above: Result Comment: Ligia onal Cholesterol Education Program (NCEP) guidelines:<40 mg/dL: Low HDL-cholesterol (major risk factor for CHD)>= 60 mg/dL: High HDL-cholesterol (negative risk factor forCHD)HDL-cholesterol is affected by a number of factors, e.g.smoking, exercise, hormones, sex and age. Performed By: #### L 501.5200, L501.9520, L100.0100, L500.2500, L500.4100 ####[facility] [address] [place], [address] Cholesterol in LDL [Mass/Vol] 26 mg/dL Normal [facility] Comment on above: Result Comment: Bord cmerfz=432-048 mg/dL Higher Kika=618 mg/dL or greater Performed By: #### L 501.5200, L501.9520, L100.0100, L500.2500, L500.4100 ####[facility] [address] [place], [address] Cholesterol in VLDL [Mass/Vol] 14 mg/dL Normal 5-40 [facility] Comment on above: Performed By: #### L 501.5200, L501.9520, L100.0100, L500.2500, L500.4100 ####[facility] [address] [place], [address] Triglyceride [Mass/Vol] 69 mg/dL Normal [facility] Comment on above: Result Comment: The drugs N-Acetylcysteine and Metamizole may falselydepress this assay.Normal range: <150 mg/dLBorderline High: 150-199 mg/dLHigh: 200-499 mg/dLVery High: >500 mg/dL Performed By: #### L 501.5200, L501.9520, L100.0100, L500.2500, L500.4100 ####[facility] [address] [place], [address] MCV (mean corpuscular volume ) determinationOrdered By: Radha Heller on 01-08-2025 MCV (RBC) [Entitic vol] 89.3 fL 81-99 [facility] Magnesiumon 01-08-2025 Magnesium [Mass/Vol] 2.4 mg/dL High 1.5-2.2 [facility] Comment on above: Performed By: #### L 501.5200, L501.9520, L100.0100, L500.2500, L500.4100 ####[facility] [address] [place], [place], [address] Magnesium measurement (mass/ volume)Ordered By: Radha Heller on 01-08-2025 Magnesium (Unsp spec) [Mass/Vol] 2.4 mg/dL High 1.5-2.2 [facility] Mean corpuscular hemoglobin (MCH) determinationOrdered By: Radha Heller on 01-08-2025 MCH (RBC) [Entitic mass] 28.3 pg 27.0-32.0 [facility] Mean corpuscular hemoglobin concentration (MCHC) determinationOrdered By: Radha Heller on 01-08-2025 MCHC (RBC) [Mass/Vol] 31.7 g/dL Low 32-[address] [facility] Mean platelet volume determi nationOrdered By: Radha Heller on 01-08-2025 Platelet mean volume (Bld) [Entitic vol] 9.6 fL 6.2-12.0 [facility] Monocyte percentageOrdered B y: Radha Heller on 01-08-2025 Monocytes/100 WBC (Bld) 15.5 % High 0-10 [facility] Neutrophil percentageOrdered By: Radha Heller on 01-08-2025 Neutrophils/100 WBC (Bld) 47.3 % 47-70 [facility] Nucleated red blood cell per centageOrdered By: Radha Heller on 01-08-2025 Nucleated RBC/100 WBC (Bld) [Ratio] 0 % 0-5 [facility] Platelet countOrdered By: Fernando Heller on 01-08-2025 Platelets (Bld) [#/Vol] 155 10*3/uL 150-450 [facility] Platelet estimateOrdered By: Radha Heller on 01-08-2025 Platelets LM Ql (Bld) ADEQUATE ADEQ [facility] RBC Auto (Bld) [#/Vol]Ordere d By: Radha Heller on 01-08-2025 RBC (Bld) [#/Vol] 3.18 10*6/uL Low 4.2-5.[address] [facility] Screening total cholesterol/ high density lipoprotein (HDL) cholesterol ratioOrdered By: Radha Heller on 01-08-2025 Cholesterol.total/Gin sterol in HDL [Mass ratio] 2.38 {ratio} [facility] Serum or plasma cholesterol in HDL measurement (mass/volume)Ordered By: Radha Heller on 01-08-2025 Cholesterol in HDL [Mass/Vol] 29 mg/dL Low >40 [facility] Comment on above: National Cholesterol Education Program (NCEP) guidelines:<40 mg/dL: Low HDL-cholesterol (major risk factor for CHD)>= 60 mg/dL: High HDL-cholesterol (negative risk factor for CHD)HDL-cholesterol is affected by a number of factors, e.g. smoking, exercise, hormones, sex and age. Serum or plasma cholesterol measurement (mass/volume)Ordered By: Radha Heller on 01-08-2025 Cholesterol [Mass/Vol] 68 mg/dL <[address] [facility] Comment on above: Cholesterol level, D esirable <200 mg/dLBorderline high cholesterol 200-239 mg/dLHigh cholesterol >=240 mg/dLRecommendations of the NCEP Adult Treatment Panel for the following risk-cutoff thresholds for the [place] population. TSH DL <= 0.005 mIU/L QnOrde red By: Radha Heller on 01-08-2025 TSH Qn 4.850 uIU/mL High 0.300-4.200 [facility] Thyroid Stim Hormone (TSH)on 01-08-2025 TSH 4.850 uIU/mL High 0.300-4.200 [facility] Comment on above: Performed By: #### L 501.5200, L501.9520, L100.0100, L500.2500, L500.4100 ####[facility] [address] [place], [place], [address] Triglycerides measurementOrd ered By: Radha Heller on 01-08-2025 Triglyceride [Mass/Vol] 69 mg/dL <199 [facility] Comment on above: The drugs N-Acetylcy steine and Metamizole may falsely depress this assay. Normal range: <150 mg/dLBorderline High: 150-199 mg/dLHigh: 200-499 mg/dLVery High: >500 mg/dL White blood cell (WBC) count Ordered By: Radha Heller on 01-08-2025 WBC (Bld) [#/Vol] 6.3 10*3/uL 4.4-11.0 [facility] 12 Lead EKGon 01-07-2025 12 Lead EKG Normal [facility] Absolute lymphocyte countOrd ered By: ED PROVIDER on 01-07-2025 Lymphocytes Auto (Unsp spec) [#/Vol] 1.52 10*3/uL 0.83-4.51 [facility] Absolute neutrophil countOrd ered By: ED PROVIDER on 01-07-2025 Neutrophils (Bld) [#/Vol] 3.8 10*3/uL 2.0-7.7 [facility] Anion gap in Serum or Plasma Ordered By: ED PROVIDER on 01-07-2025 Anion gap [Moles/Vol] 15 mmol/L 11-[address] [facility] Automated lymphocyte count a s percentage of total leukocytesOrdered By: ED PROVIDER on 01-07-2025 Lymphocytes/100 WBC Auto (Unsp spec) 24.2 % 19-41 [facility] BUN/creatinine ratioOrdered By: ED PROVIDER on 01-07-2025 Urea nitrogen/Creatinine [Mass ratio] 26.4 mg/mg High 10-20 [facility] Basic Metabolic Profile (BMP )on 01-07-2025 BUN/CRE 26.4 RATIO High 10- [facility] Comment on above: Performed By: #### L 500.2500, L100.0100 ####[facility] [address] [place], [address] ECRCL 24.26 ml/min Low 50-250 [facility] Comment on above: Performed By: #### L 500.2500, L100.0100 ####[facility] [address] [place], [address] GAP 15 Normal - [facility] Comment on above: Performed By: #### L 500.2500, L100.0100 ####[facility] [address] [place], [address] Potassium [Moles/Vol] 4.2 mmol/L Normal 3.3-5.[address] [facility] Comment on above: Performed By: #### L 500.2500, L100.0100 ####[facility] [address] [place], [address] Basophil percentageOrdered B y: ED PROVIDER on 01-07-2025 Basophils/100 WBC (Bld) 1.0 % 0-1 [facility] Bedside Glucoseon 01-07-2025 FINGERSTICK GLU 166 mg/dL High 74-106 [facility] Comment on above: Result Comment: JOHNSON GEMENT OF PATIENT CARE PER NURSING PROTOCOL Performed By: #### L 501.080 ####[facility] [address] [place], [address] FINGERSTICK GLU 104 mg/dL Normal 74-106 [facility] Comment on above: Result Comment: JOHNSON GEMENT OF PATIENT CARE PER NURSING PROTOCOL Performed By: #### L 501.080 ####[facility] [address] [place], [address] CBC W/Diff, AutomatedOrdered By: ED PROVIDER on 01-07-2025 Anisocytosis Ql (Bld) 1+ Normal [facility] Comment on above: Performed By: #### L 500.2500, L100.0100 ####[facility] [address] [place], [address] Carbon dioxide, total [Moles /volume] in Central venous bloodOrdered By: ED PROVIDER on 01-07-2025 CO2 [Moles/Vol] 23.9 mmol/L Normal 21.0-32.0 [facility] Comment on above: Performed By: #### L 500.2500, L100.0100 ####[facility] [address] [place], [address] Chest PA and Lateralon 01-07 Chest PA and Lateral Normal [facility] Chloride assayOrdered By: ED PROVIDER on 01-07-2025 Chloride [Moles/Vol] 91 mmol/L Low 98-108 [facility] Comment on above: Performed By: #### L 500.2500, L100.0100 ####[facility] [address] [place], [place], [address] Echo Completeon 01-07-2025 Echo Complete Normal [facility] Emergency Department Summary on 01-07-2025 Emergency Department Summary Normal [facility] Eosinophil percentageOrdered By: ED PROVIDER on 01-07-2025 Eosinophils/100 WBC (Bld) 1.8 % 0-5 [facility] Erythrocyte distribution wid th ratioOrdered By: ED PROVIDER on 01-07-2025 Erythrocyte distribution width (RBC) [Ratio] 19.9 % High 11.6-14.6 [facility] Erythrocyte distribution wid th standard deviationOrdered By: ED PROVIDER on 01-07-2025 Erythrocyte distribution width (RBC) [Ratio] 65.6 fl High 35.1-43.9 [facility] Glomerular filtration rate ( GFR) estimation/1.73 sq m using serum, plasma, or whole bOrdered By: ED PROVIDER on 01-07-2025 GFR/1.73 sq M.predicted among non-blacks MDRD (S/P/Bld) [Vol rate/Area] 29 mL/min/{1.73_m2} Low >60 [facility] Comment on above: mL/min/1.73m2 CKD-EP I Creatinine Equation (2020) Result Comment: mL/m in/1.73m2 CKD-EPI Creatinine Equation (2020) Performed By: #### L 500.2500, L100.0100 ####[facility] [address] [place], [address] H AND P Exam - Hospitaliston 01-07-2025 H&P Exam - Hospitalist Normal [facility] Hematocrit Auto (Bld) [Volum e fraction]Ordered By: ED PROVIDER on 01-07-2025 Hematocrit (Bld) [Volume fraction] 29.6 % Low 37-47 [facility] Hemoglobin measurementOrdere d By: ED PROVIDER on 01-07-2025 Hemoglobin (Bld) [Mass/Vol] 9.4 g/dL Low 12.0-15.0 [facility] Immature granulocytes/100 WB C Auto (Bld)Ordered By: ED PROVIDER on 01-07-2025 Immature granulocytes/100 WBC (Bld) 0.300 % 0.0-0.9 [facility] Comment on above: IG% - Immature Granu locytes (promyelocytes, myelocytes and metamyelocytes) > 1% indicates that a LEFT SHIFT is Present. L499.0042on 01-07-2025 Trop T High Sen 68 ng/L Invalid Interpretation Code <=14 [facility] Comment on above: Result Comment: Crit ical Result(s) Called at: 01/07/2025-15:45 by: Francisco J Carrera.??Results read back by same. Performed By: #### L 499.0042 ####[facility] [address] [facility] [place], [address] L501.4021on 01-07-2025 Trop T High Sen 71 ng/L Invalid Interpretation Code <=14 [facility] Comment on above: Result Comment: Crit ical Result(s) Called at: 01/07/2025-13:48 by: Andreea.??Results read back by same. Performed By: #### L 501.4021, L503.9735 ####[facility] [address] [facility] [place] [place], [address] L503.7505on 01-07-2025 Natriuretic peptide B (Bld) [Mass/Vol] 46449 pg/mL High <=1800 [facility] Comment on above: Result Comment: Hear t Failure Unlikely: < 300 pg/mLHeart Failure Likely< 50 Years: > 450 pg/mL50-75 Years: > 900 pg/mL>75 Years: > 1800 pg/mL Performed By: #### L 501.4021, L503.7505 ####[facility] [address] [facility] [place], [place], [address] MCV (mean corpuscular volume ) determinationOrdered By: ED PROVIDER on 01-07-2025 MCV (RBC) [Entitic vol] 90.0 fL 81-99 [facility] Mean corpuscular hemoglobin (MCH) determinationOrdered By: ED PROVIDER on 01-07-2025 MCH (RBC) [Entitic mass] 28.6 pg 27.0-32.0 [facility] Mean corpuscular hemoglobin concentration (MCHC) determinationOrdered By: ED PROVIDER on 01-07-2025 MCHC (RBC) [Mass/Vol] 31.8 g/dL Low 32-[address] [facility] Mean platelet volume determi nationOrdered By: ED PROVIDER on 01-07-2025 Platelet mean volume (Bld) [Entitic vol] 9.6 fL 6.2-12.0 [facility] Monocyte percentageOrdered B y: ED PROVIDER on 01-07-2025 Monocytes/100 WBC (Bld) 12.9 % High 0-10 [facility] Natriuretic peptide.B prohor daria N-Terminal [Mass/volume] in Serum or PlasmaOrdered By: Sheree Simmons on 01-07-2025 Natriuretic peptide.B prohormone N-Terminal [Mass/Vol] 19457 pg/mL High <1800 [facility] Comment on above: Heart Failure Unlike ly: < 300 pg/mLHeart Failure Likely< 50 Years: > 450 pg/mL50-75 Years: > 900 pg/mL>75 Years: > 1800 pg/mL Neutrophil percentageOrdered By: ED PROVIDER on 01-07-2025 Neutrophils/100 WBC (Bld) 59.8 % 47-70 [facility] No Panel InformationOrdered By: ED PROVIDER on 01-07-2025 1+ [facility] Nucleated red blood cell per centageOrdered By: ED PROVIDER on 01-07-2025 Nucleated RBC/100 WBC (Bld) [Ratio] 0 % 0-5 [facility] Platelet countOrdered By: ED PROVIDER on 01-07-2025 Platelets (Bld) [#/Vol] 165 10*3/uL 150-450 [facility] Potassium measurement (mass/ volume)Ordered By: ED PROVIDER on 01-07-2025 Potassium (Unsp spec) [Mass/Vol] 4.2 mmol/L 3.3-5.1 [facility] RBC Auto (Bld) [#/Vol]Ordere d By: ED PROVIDER on 01-07-2025 RBC (Bld) [#/Vol] 3.29 10*6/uL Low 4.2-5.[address] [facility] STROKE Brain/Head without Co nton 01-07-2025 STROKE Brain/Head without Cont Normal [facility] STROKE CTA Head AND Neck W/C onon 01-07-2025 STROKE CTA Head AND Neck W/Con Normal [facility] Serum creatinine measurement (mass/volume)Ordered By: ED PROVIDER on 01-07-2025 Creatinine [Mass/Vol] 1.77 mg/dL High 0.70-1.[address] [facility] Comment on above: Performed By: #### L 500.2500, L100.0100 ####[facility] [address] [place], [address] Serum glucose measurement (m ass/volume)Ordered By: ED PROVIDER on 01-07-2025 Glucose [Mass/Vol] 194 mg/dL High 70-99 [facility] Comment on above: Performed By: #### L 500.2500, L100.0100 ####[facility] [address] [place], [address] Serum or plasma calcium bijan urement (mass/volume)Ordered By: ED PROVIDER on 01-07-2025 Calcium [Mass/Vol] 8.8 mg/dL Normal 7.6-11.0 [facility] Comment on above: Performed By: #### L 500.2500, L100.0100 ####[facility] [address] [place], [address] Serum or plasma urea nitroge n measurement (mass/volume)Ordered By: ED PROVIDER on 01-07-2025 Urea nitrogen [Mass/Vol] 47 mg/dL High 4-19 [facility] Comment on above: Performed By: #### L 500.2500, L100.0100 ####[facility] [address] [place], [address] Sodium levelOrdered By: ED Yue AUSTIN on 01-07-2025 Sodium [Moles/Vol] 129 mmol/L Low 133-145 [facility] Comment on above: Performed By: #### L 500.2500, L100.0100 ####[facility] [address] [place], [address] Troponin T.cardiac [Mass/vol ume] in Serum or Plasma by High sensitivity methodOrdered By: Sheree Simmons on 01-07-2025 Troponin T.cardiac High sensitivity method [Mass/Vol] 68 ng/L Critically high <14 [facility] Comment on above: Critical Result(s) C alled at: 01/07/2025-15:45 by: Tai Garcia to Jen Carrera. Results read back by same. Troponin T.cardiac High sensitivity method [Mass/Vol] 71 ng/L Critically high <14 [facility] Comment on above: Critical Result(s) C alled at: 01/07/2025-13:48 by: Danika Blanchard. Results read back by same. White blood cell (WBC) count Ordered By: ED PROVIDER on 01-07-2025 WBC (Bld) [#/Vol] 6.3 10*3/uL 4.4-11.0 [facility] CNOVon 01-01-2025 CNOV Office Visit (JOHNYN ) BERTA SANCHES ([id number]) 1945 F [place] Date Time Provider Department 01/01/25 11:00 AM CARLA BURDICK During your visit today, we recorded the following information about you: Pulse Respiration Blood pressure Weight 84/minute 18/minute 156/60 67.4 kg Height 1.575 m Carla Burdick MD 01/01/2025 12:27 PM Signed [facility] SECTION [facility] REGIONAL CARDIOLOGY Cardiology ([facility]) [address] [facility] [id number] OUTPATIENT VISIT DATE 01/01/2025 PRIMARY CARE PHYSICIAN: Doreen Le [address] [place] [address] HISTORY OF PRESENT ILLNESS: Ms. Sanches is a 79 year old woman with a history of remote aortic valve replacement with homograft in 1996 and possible repair of the ascending aorta, chronic diastolic congestive heart failure, hypertension, dyslipidemia, atrial fibrillation with history of pulmonary vein isolation procedures, pacemaker placement and watchman procedure who presents for follow-up. Patient was admitted to [facility]. 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 Msoley MASTOIDECTOMY Right 04/30/2015 cholesteatoma removed, Dr. Lua PACEMAKER 10/2019 PART. HYSTERECTOMY W/WO RMVL OVARIES/TUBES 1973 h/o cervical cancer ovaries remain PAST SURGICAL HISTORY OF 1996 Aortic valve repair, Dr. Apodaca PAST SURGICAL HISTORY OF 2001 [address] Beltrán, [facility] PAST SURGICAL HISTORY OF 2015 clipping [...] and 1 (more content not included)... 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 [facility]VAS[facility] BERTA SANCHES ([id number]) 1945 F [place] Date Time Provider Department 12/20/24 8:45 AM LARS SILVA During your visit today, we recorded the following information about you: Pulse Blood pressure Weight 77/minute 154/75 67.4 kg Lars Silva, DO 12/20/2024 5:56 PM Signed [facility] [place] DEPARTMENT OF VASCULAR SURGERY OUTPATIENT VISIT DATE December 20, 2024 OUTPATIENT VISIT TYPE ESTABLISHED SERVICE DATE: 12/20/2024 SERVICE TIME: 8:53 AM PRIMARY CARE PHYSICIAN: Deysi Collazo APRN.TWISTHAND HISTORY OF PRESENT ILLNESS: Ms. Sanches is a 79 year old female who presents today for a vascular surgery follow-up visit follow up on mesenteric duplex. She recently increased her lasix at the CHF clinic. She had a stent placed in [place] in September. She was recently admitted to [facility] for anemia. She has noted increased swelling. 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 Lua PACEMAKER 10/2019 PART. HYSTERECTOMY W/WO RMVL OVARIES/TUBES 1974 h/o cervical cancer ovaries remain PAST SURGICAL HISTORY OF 1996 Aortic valve repair, Dr. Apodaca PAST SURGICAL HISTORY OF 2001 [address] Beltrán, [facility] PAST SURGICAL HISTORY OF 2015 clipping [...] blood sugar (more content not included)... Normal [facility] MESENTERIC ARTERY CMPLT V LABon 12-20-2024 MESENTERIC ARTERY CMPLT VAS LAB Non-Invasive Vascular Laboratory [facility] Renal or Mesenteric Duplex [...] Unable to visualize. Technologist: Chantell Ferrari RVT, [facility] Ordering physician: LARS SILVA Interpreting physician: Terrance Oseguera MD, BIJAN Final CC [employer] [facility] Image : [id number] See Link below for Image Normal [facility] CNOVon 12-19-2024 CN Office Visit ([facility] ) BERTA SANCHES ([id number]) 1945 F [facility] Date Time Provider Department 12/19/24 11:00 AM ALBIN GU [facility] During your visit today, we recorded the following information about you: Pulse Blood pressure Weight 79/minute 157/54 65.3 kg Albin Gu APRN.TWISTHAND 12/19/2024 11:41 AM Addendum 40 mg intravenous [...] or concern, you can call me at [phone]. Albin Gu APRN.CNP 12/19/2024 11:45 AM Signed [facility] [place] [facility] Heart Failure [facility] OUTPATIENT VISIT [...] and was worried about traveling home to [place] in a few days. Discussed with her taking lasix as it was prescribed. As her spironolactone was stopped, did advise patient restart this at 25 mg once a day for four days only. She was instructed to call office in a week to review symptoms. On 10/15, patient presented back to [facility] for gastrointestinal bleed. She had a colonoscopy [...] and entresto. The patient wished to leave [place] so she could return to [place]. Cardiology and Pulmonary agreed with discharge. Patient [...] lbs Hospital disch (more content not included)... [facility] 12-13-2024 [facility] Telephone ([facility]) BERTA SANCHES ([id number]) 1945 [facility] Date Time Provider Department 12/13/24 DEYSI COLLAZO [facility] During your visit today, we recorded the following information about you: Alex Gonzalez 12/13/2024 9:36 AM Signed Transitional Care Management (TCM) [facility] Monitoring Program Provider Action / FYI: N/A SUMMARY: Outreach type: INITIAL OUTREACH Discharge Network Status: In-Network Discharge Source of Patient: [facility] TCM Discharge Report Patient discharged from [facility] on December 12. Admitted for Acute on chronic diastolic CHF (congestive heart failure) ([facility]). Contact made with patient: No [...] 02/26/2014 03/21/2022 Intracranial aneurysm [I67.1] 08/30/2015 10/05/2022 detention current use of antiarrhythmic medical*10/20/2016 09/12/2021 Prosthetic [...] [C64.9] 04 (more content not included)... Normal [facility] Basic metabolic 2000 panelon 12-12-2024 Anion gap [Moles/Vol] 12 mmol/L Normal 8-15 [facility] Comment on above: Order Comment: Speci men Type: BLOOD SPECIMEN Ordering Facility: [facility] Address: [address] [place] [address] Performed By: #### 1 91239, 32207-8 #### [facility] CLIA [id number] [address] [place] [address] [place] Calcium [Mass/Vol] 8.8 mg/dL Normal 8.5-10.2 [facility] Comment on above: Order Comment: Speci men Type: BLOOD SPECIMEN Ordering Facility: [facility] Address: [address] [place] [address] Performed By: #### 1 91239, 19333-2 #### [facility] CLIA [id number] [address] [place] [address] [place] Chloride [Moles/Vol] 96 mmol/L Low 98-107 [facility] Comment on above: Order Comment: Speci men Type: BLOOD SPECIMEN Ordering Facility: [facility] Address: [address] [place] [address] Performed By: #### 1 91239, 81712-1 #### [facility] CLIA [id number] [address] [place] [address] [place] CO2 [Moles/Vol] 26 mmol/L Normal 22-30 [facility] Comment on above: Order Comment: Speci men Type: BLOOD SPECIMEN Ordering Facility: [facility] Address: [address] [place] [address] Performed By: #### 1 91239, 41873-9 #### [facility] CLIA [id number] [address] [place] [address] [place] Creatinine [Mass/Vol] 1.69 mg/dL High 0.58-0.96 [facility] Comment on above: Order Comment: Speci men Type: BLOOD SPECIMEN Ordering Facility: [facility] Address: [address] [place] [address] Performed By: #### 1 91239, 19983-4 #### [facility] CLIA [id number] [address] Creatinine and Glomerular filtration rate.predicted panel (S/P/Bld) 31 mL/min/1.73m??? Low >=60 [facility] Comment on above: Order Comment: Speci men Type: BLOOD SPECIMEN Ordering Facility: [facility] Address: [address] [place] [address] Result Comment: Mira mated Glomerular Filtration Rate [...] actual GFR. Performed By: #### 1 9123-9, 47813-8 #### [facility] CLIA [id number] [address] [place] [address] [place] Glucose [Mass/Vol] 170 mg/dL High 74-99 [facility] Comment on above: Order Comment: Annie ricci Type: BLOOD SPECIMEN Ordering Facility: [facility] Address: [address] [place] [address] Result Comment: The [place] Diabetes Association (ADA) provides guidance for cutoff [...] Standards of Medical Care in Diabetes 2016, [place] Diabetes Association. Diabetes Care. 2016.39(Suppl 1). Performed By: #### 1 9123-9, 10080-0 #### [facility] CLIA [id number] [address] [place] [id number] [place] Potassium [Moles/Vol] 4.1 mmol/L Normal 3.7-5.1 [facility] Comment on above: Order Comment: Annie ricci Type: BLOOD SPECIMEN Ordering Facility: [facility] Address: [address] [place] [id number] Performed By: #### 1 9123-9, 21359-3 #### [facility] CLIA [id number] [address] [place] Sodium [Moles/Vol] 134 mmol/L Low 136-144 [facility] Comment on above: Order Comment: Speci men Type: BLOOD SPECIMEN Ordering Facility: [facility] Address: [address] [place] [address] Performed By: #### 1 9123-9, 43123-4 #### [facility] CLIA [id number] [address] [place] [address] [place] Urea nitrogen [Mass/Vol] 47 mg/dL High 7-21 [facility] Comment on above: Order Comment: Speci men Type: BLOOD SPECIMEN Ordering Facility: [facility] Address: [address] [place] [address] Performed By: #### 1 9123-9, 92724-7 #### [facility] CLIA [id number] [address] [place] CBC panel Auto (Bld)on 12-12 Erythrocyte distribution width (RBC) [Ratio] 15.9 % High 11.5-15.0 [facility] Comment on above: Order Comment: Speci men Type: BLOOD SPECIMEN Ordering Facility: [facility] Address: [address] [place] [address] Performed By: #### 5 8410-2 #### [facility] CLIA [id number] [address] Hematocrit (Bld) [Volume fraction] 25.0 % Low 36.0-46.0 [facility] Comment on above: Order Comment: Speci men Type: BLOOD SPECIMEN Ordering Facility: [facility] Address: [address] [place] [address] Performed By: #### 5 8410-2 #### [facility] CLIA [id number] [address] [place] Hemoglobin (Bld) [Mass/Vol] 8.0 g/dL Low 11.5-15.5 [facility] Comment on above: Order Comment: Speci men Type: BLOOD SPECIMEN Ordering Facility: [facility] Address: [address] [place] [address] Performed By: #### 5 8410-2 #### [facility] CLIA [id number] [address] MCH (RBC) [Entitic mass] 28.6 pg Normal 26.0-34.0 [facility] Comment on above: Order Comment: Speci men Type: BLOOD SPECIMEN Ordering Facility: [facility] Address: [address] [place] [address] Performed By: #### 5 8410-2 #### [facility] CLIA [id number] [address] MCHC (RBC) [Mass/Vol] 32.0 g/dL Normal 30.5-36.0 [facility] Comment on above: Order Comment: Speci men Type: BLOOD SPECIMEN Ordering Facility: [facility] Address: [address] [place] [address] Performed By: #### 5 8410-2 #### [facility] CLIA [id number] [address] MCV (RBC) [Entitic vol] 89.3 fL Normal 80.0-100.[address] [facility] Comment on above: Order Comment: Speci men Type: BLOOD SPECIMEN Ordering Facility: [facility] Address: [address] [place] [address] Performed By: #### 5 8410-2 #### [facility] CLIA [id number] [address] Nucleated RBC (Bld) [#/Vol] 10*3/uL Normal <0.01 [facility] Comment on above: Order Comment: Speci men Type: BLOOD SPECIMEN Ordering Facility: [facility] Address: [address] [place] [address] Performed By: #### 5 8410-2 #### [facility] CLIA [id number] [address] Platelet mean volume (Bld) [Entitic vol] 9.9 fL Normal 9.0-12.7 [facility] Comment on above: Order Comment: Speci men Type: BLOOD SPECIMEN Ordering Facility: [facility] Address: [address] [place] [address] Performed By: #### 5 8410-2 #### [facility] CLIA [id number] [address] [place] Platelets (Bld) [#/Vol] 148 10*3/uL Low 150-400 [facility] Comment on above: Order Comment: Speci men Type: BLOOD SPECIMEN Ordering Facility: [facility] Address: [address] [place] [address] Performed By: #### 5 8410-2 #### [facility] CLIA [id number] [address] [place] [address] [place] RBC (Bld) [#/Vol] 2.80 10*6/uL Low 3.90-5.20 [facility] Comment on above: Order Comment: Speci men Type: BLOOD SPECIMEN Ordering Facility: [facility] Address: [address] [place] [address] Performed By: #### 5 8410-2 #### [facility] CLIA [id number] [address] [place] WBC (Bld) [#/Vol] 9.29 10*3/uL Normal 3.70-11.00 [facility] Comment on above: Order Comment: Speci men Type: BLOOD SPECIMEN Ordering Facility: [facility] Address: [address] [place] [address] Performed By: #### 5 8410-2 #### [facility] CLIA [id number] [address] [place] CNDSon 12-12-2024 CNDS HNO ID: [id number] Author: JUAN DIEGO KNOWLES MD Service: Hospital [...] You also have anemia related to taking assisted blood thinners and you got better with iron. 1. Take a higher dose of torsemide and follow up with a patient support representative and our CHF clinic to guide your [...] Surgery placed. Wednesday-Wednesday after 9 am, call hydraulic operator at [phone] ext-[phone] and ask for the appointment line [...] s/p S[facility] stenting 09/2024 in [facility], hx of AVR, CKD3. Patient presenting with [...] results. FOLLOW-UP APPOINTMENTS ALREADY SCHEDULED WITH A [facility] PROVIDER: Future Appointments Date Time Provider Department Center 12/21/2024 9:00 AM Albin Gu, FACS TEACHER.[facility] 01/01/2025 11:00 AM Carla Burdick MD [facility] [place] 01/10/2025 1:00 PM Deysi Collazo APRN.[facility] 02/26/2025 2:20 PM Carla Burdick MD CARDWS [...] how you (more content not included)... Normal [facility] CONSULT PROGon 12-12-2024 CONSULT PROG HNO ID: [id number] Author: BETSY HALL MD Service: Nephrology Author [...] urine creatinine (more content not included)... Normal [facility] Magnesium SerPl-ncon 12-12 Magnesium [Mass/Vol] 2.0 mg/dL Normal 1.7-2.3 [facility] Comment on above: Order Comment: Annie ricci Type: BLOOD SPECIMEN Ordering Facility: [facility] Address: [address] [place] [address] Performed By: #### 1 9123-9, 82154-9 #### [facility] CLIA [id number] [address] [place] [address] [place] ALBUMIN/CREATININE RATIO, UR INEon 12-11-2024 Albumin DL <= 20 mg/L (U) [Mass/Vol] 23.5 mg/L Normal [facility] Comment on above: Order Comment: Annie ricci Type: BLOOD SPECIMEN Ordering Facility: [facility] Address: [address] [place] [address] Performed By: #### 2 132-9, 2284-8 #### [facility] CLIA [id number] [address] Albumin/Creatinine (U) [Mass ratio] 76 mg/g High <30 [facility] Comment on above: Order Comment: Annie ricci Type: BLOOD SPECIMEN Ordering Facility: [facility] Address: [address] [place], [place] [address] Result Comment: Adul t Male and Female Nephrotic Criteria: <30 mg/g is considered normal to mildly increased 30-300 mg/g is considered moderately increased >300 mg/g is considered severely increased KDIGO. (2013). KDIGO 2012 Clinical Practice Guideline for the Evaluation and Management of Chronic Kidney Disease. Official Journal of the International Society of Nephrology, 3(1), 1-150. Performed By: #### 2 132-9, 2284-8 #### [facility] CLIA [id number] [address] OF [facility] ALLIED HEALTHon 12-11-2024 ALLIED HEALTH HNO ID: [id number] Author: NUNU CHATMAN RDMS Service: ? 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: N/A RADIOLOGY DEPARTMENT: Ultrasound PERIPHERAL IV DATA: Not applicable SIGNED BY: Nunu Chatman RDMS December 11, 2024 9:14 AM Normal [facility] Basic metabolic 2000 panelon 12-11-2024 Anion gap [Moles/Vol] 13 mmol/L Normal 8-15 [facility] Comment on above: Order Comment: Annie ricci Type: BLOOD SPECIMEN Ordering Facility: [facility] Address: [address] [place] [address] Performed By: #### 2 276-4, 55110-7, 80925-7, 15281-5 #### [facility] CLIA [id number] [address] [place] [address] [place] Calcium [Mass/Vol] 8.9 mg/dL Normal 8.5-10.2 [facility] Comment on above: Order Comment: Speci men Type: BLOOD SPECIMEN Ordering Facility: [facility] Address: [address] [place] [address] Performed By: #### 2 276-4, 18408-8, 38319-0, 31883-9 #### [facility] CLIA [id number] [address] [place] [address] [place] Chloride [Moles/Vol] 93 mmol/L Low 98-107 [facility] Comment on above: Order Comment: Speci men Type: BLOOD SPECIMEN Ordering Facility: [facility] Address: [address] [place] [address] Performed By: #### 2 276-4, 06180-8, 86672-2, 35028-4 #### [facility] CLIA [id number] [address] [place] [address] [place] CO2 [Moles/Vol] 24 mmol/L Normal 22-30 [facility] Comment on above: Order Comment: Speci men Type: BLOOD SPECIMEN Ordering Facility: [facility] Address: [address] [place] [address] Performed By: #### 2 276-4, 63668-9, 38425-0, 56636-2 #### [facility] CLIA [id number] [address] [place] [address] [place] Creatinine [Mass/Vol] 1.70 mg/dL High 0.58-0.96 [facility] Comment on above: Order Comment: Speci men Type: BLOOD SPECIMEN Ordering Facility: [facility] Address: [address] [place] [address] Performed By: #### 2 276-4, 57862-1, 50676-7, 03799-8 #### [facility] CLIA [id number] [address] [place] [address] [place] Creatinine and Glomerular filtration rate.predicted panel (S/P/Bld) 30 mL/min/1.73m??? Low >=60 [facility] Comment on above: Order Comment: Annie ricci Type: BLOOD SPECIMEN Ordering Facility: [facility] Address: [address] [place] [address] Result Comment: Mira mated Glomerular Filtration Rate [...] actual GFR. Performed By: #### 2 276-4, 86954-6, 51437-2, 45045-5 #### [facility] CLIA [id number] [address] [place] [address] [place] Glucose [Mass/Vol] 144 mg/dL High 74-99 [facility] Comment on above: Order Comment: Annie ricci Type: BLOOD SPECIMEN Ordering Facility: [facility] Address: [address] [place] [address] Result Comment: The [place] Diabetes Association (ADA) provides guidance for cutoff [...] Standards of Medical Care in Diabetes 2016, [place] Diabetes Association. Diabetes Care. 2016.39(Suppl 1). Performed By: #### 2 276-4, 00325-6, 91816-9, 47835-7 #### [facility] CLIA [id number] [address] [place] [id number] [place] Potassium [Moles/Vol] 3.6 mmol/L Low 3.7-5.1 [facility] Comment on above: Order Comment: Speci men Type: BLOOD SPECIMEN Ordering Facility: [facility] Address: [address] [place] [address] Performed By: #### 2 276-4, 39838-5, 70516-9, 51438-3 #### [facility] CLIA [id number] [address] [place] [address] [place] Sodium [Moles/Vol] 130 mmol/L Low 136-144 [facility] Comment on above: Order Comment: Speci men Type: BLOOD SPECIMEN Ordering Facility: [facility] Address: [address] [place] [address] Performed By: #### 2 276-4, 96326-8, 49510-5, 62304-3 #### [facility] CLIA [id number] [address] [place] Urea nitrogen [Mass/Vol] 54 mg/dL High 7-21 [facility] Comment on above: Order Comment: Speci men Type: BLOOD SPECIMEN Ordering Facility: [facility] Address: [address] [place] [address] Performed By: #### 2 276-4, 95262-4, 91003-1, 01810-4 #### [facility] CLIA [id number] [address] [place] CBC panel Auto (Bld)on 12-11 Erythrocyte distribution width (RBC) [Ratio] 16.1 % High 11.5-15.0 [facility] Comment on above: Order Comment: Speci men Type: BLOOD SPECIMEN Ordering Facility: [facility] Address: [address] [place] [address] Performed By: #### 2 132-9, 8 #### [facility] CLIA [id number] [address] [place] Hematocrit (Bld) [Volume fraction] 23.8 % Low 36.0-46.0 [facility] Comment on above: Order Comment: Speci men Type: BLOOD SPECIMEN Ordering Facility: [facility] Address: [address] [place] [address] Performed By: #### 2 132-9, 8 #### [facility] CLIA [id number] [address] [place] Hemoglobin (Bld) [Mass/Vol] 7.6 g/dL Low 11.5-15.5 [facility] Comment on above: Order Comment: Speci men Type: BLOOD SPECIMEN Ordering Facility: [facility] Address: [address] [place] [address] Performed By: #### 2 132-9, 8 #### [facility] CLIA [id number] [address] [place] MCH (RBC) [Entitic mass] 28.4 pg Normal 26.0-34.0 [facility] Comment on above: Order Comment: Speci men Type: BLOOD SPECIMEN Ordering Facility: [facility] Address: [address] [place] [address] Performed By: #### 2 132-9, 8 #### [facility] CLIA [id number] [address] MCHC (RBC) [Mass/Vol] 31.9 g/dL Normal 30.5-36.0 [facility] [facility] Comment on above: Order Comment: Speci men Type: BLOOD SPECIMEN Ordering Facility: [facility] Address: [address] [place] [address] Performed By: #### 2 132-9, 8 #### [facility] CLIA [id number] [address] OF [place] MCV (RBC) [Entitic vol] 88.8 fL Normal 80.0-100.[address] [facility] Comment on above: Order Comment: Speci men Type: BLOOD SPECIMEN Ordering Facility: [facility] Address: [address] [place] [address] Performed By: #### 2 132-9, 8 #### [facility] CLIA [id number] [address] OF [facility] Nucleated RBC (Bld) [#/Vol] 10*3/uL Normal <0.01 [facility] Comment on above: Order Comment: Speci men Type: BLOOD SPECIMEN Ordering Facility: [facility] Address: [address] [place] [address] Performed By: #### 2 132-9, 2283-8 #### [facility] CLIA [id number] [address] [place] [address] [place] Platelet mean volume (Bld) [Entitic vol] 9.8 fL Normal 9.0-12.7 [facility] Comment on above: Order Comment: Speci men Type: BLOOD SPECIMEN Ordering Facility: [facility] Address: [address] [place] [address] Performed By: #### 2 132-9, 2283-8 #### [facility] CLIA [id number] 1000 [place] [address] [place] Platelets (Bld) [#/Vol] 160 10*3/uL Normal 150-400 [facility] Comment on above: Order Comment: Speci men Type: BLOOD SPECIMEN Ordering Facility: [facility] Address: [address] [place] [address] Performed By: #### 2 132-9, 2283-8 #### [facility] CLIA [id number] [address] [place] [address] [place] RBC (Bld) [#/Vol] 2.68 10*6/uL Low 3.90-5.20 [facility] Comment on above: Order Comment: Speci men Type: BLOOD SPECIMEN Ordering Facility: [facility] Address: [address] [place] [address] Performed By: #### 2 132-9, 2283-8 #### [facility] CLIA [id number] [address] [place] [address] [place] WBC (Bld) [#/Vol] 7.37 10*3/uL Normal 3.70-11.00 [facility] Comment on above: Order Comment: Speci men Type: BLOOD SPECIMEN Ordering Facility: [facility] Address: [address] [place] [address] Performed By: #### 2 132-9, 2283-8 #### [facility] CLIA [id number] [address] [place] CNPNon 12-11-2024 JASPREETN Telephone (4CQ) BERTA SANCHES ([id number]) 1945 F [facility] Date Time Provider Department 12/11/24 DEYSI COLLAZO 4CQ During your visit today, we recorded the following information about you: Marilyn Cesar 12/11/2024 11:06 AM Signed Patient called to cancel hospital follow up due to re admission yesterday 12/10/2024 Sigifredo Rivera LPN 12/11/2024 11:15 AM Signed Pt re admitted to [facility]. GOPI Hill Christy, APRN.CNP 12/11/2024 1:06 PM Signed Noted. Deysi Collazo APRN.TWISTHAND Allergies As of Date: 12/11/2024 Noted Allergy [...] 02/26/2014 03/21/2022 Intracranial aneurysm [I67.1] 08/30/2015 10/05/2022 detention current use of antiarrhythmic medical*10/20/2016 09/12/2021 Prosthetic [...] [J90] 03/06 (more content not included)... Normal [facility] CONSULTon 12-11-2024 CONSULT HNO ID: [id number] Author: HEMANT JIMENEZ MD Service: Gastroenterology Author Type: Physician Type: Consults Filed: 12/11/2024 15:46 Note Text: GASTROENTEROLOGY CONSULT NOTE PATIENT NAME: Berta Sanches SERVICE DATE: December 11, 2024 SERVICE TIME: 11:59 AM PRIMARY CARE PHYSICIAN: Deysi Collazo APRN.TWISTHAND ATTENDING PHYSICIAN:Juan Diego Knowles MD REASON FOR [...] stenting 09/2024 (on DAPT) in [facility] who presented on 12/10/24 for dyspnea, weight 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 Lua PACEMAKER 10/2019 PART. HYSTERECTOMY W/WO RMVL OVARIES/TUBES 1973 h/o cervical cancer ovaries remain PAST SURGICAL HISTORY OF 1996 Aortic valve repair, Dr. Apodaca PAST SURGICAL HISTORY OF 2001 [address] Beltrán, [facility] PAST SURGICAL HISTORY OF 2016 clipping [...] , 12/09/2024 t (more content not included)... [facility] CONSULT PROGon 12-11-2024 CONSULT PROG HNO ID: [id number] Author: BETSY HALL MD Service: Nephrology Author [...] p.o. twice daily -- Previous record from [place] reviewed in detail. -- Kidney ultrasound from 10/04/2024 reviewed. Significantly increased velocity in proximal left renal artery suggestive of left renal artery stenosis -- Repeat kidney ultrasound and renal artery duplex Normal [facility] Creat ?Tm Ur-mCncon 12-12-19 25 Creatinine (U) [Mass/Vol] 31.1 mg/dL Normal 20.0-300.0 [facility] Comment on above: Order Comment: Speci men Type: BLOOD SPECIMEN Ordering Facility: [facility] Address: [facility] [place] [address] Performed By: #### 2 132-9, 8 #### [facility] CLIA [id number] [address] [place] [address] [place] Ferritin SerPl-mCncon 2024 Ferritin [Mass/Vol] 36.2 ng/mL Normal 14.7-205.1 [facility] Comment on above: Order Comment: Speci men Type: BLOOD SPECIMEN Ordering Facility: [facility] Address: [address] [place] [address] Performed By: #### 2 276-4, 83686-7, 92247-2, 10927-1 #### [facility] CLIA [id number] [address] [place] [address] [place] Folate SerPl-mCncon 12-12-19 Folate [Mass/Vol] 11.3 ng/mL Normal >4.7 [facility] Comment on above: Order Comment: Speci men Type: BLOOD SPECIMEN Ordering Facility: [facility] Address: [address] [place] [address] Performed By: #### 2 132-9, 8 #### [facility] CLIA [id number] [address] [place] [address] [place] Iron and Iron binding capaci ty panelon 12-11-2024 Iron [Mass/Vol] 17 ug/dL Low 41-186 [facility] Comment on above: Order Comment: Speci men Type: BLOOD SPECIMEN Ordering Facility: [facility] Address: [address] [place] [address] Performed By: #### 2 132-9, 8 #### [facility] CLIA [id number] [address] [place] [address] [place] Iron binding capacity [Mass/Vol] 416 ug/dL High 232-386 [facility] Comment on above: Order Comment: Speci men Type: BLOOD SPECIMEN Ordering Facility: [facility] Address: [address] [place] [address] Performed By: #### 2 132-9, 2283-8 #### [facility] CLIA [id number] [address] [place] [address] [place] Iron/TIBC [Molar ratio] 4.1 % Low 15.0-57.0 [facility] Comment on above: Order Comment: Annie keiry Type: BLOOD SPECIMEN Ordering Facility: [facility] Address: [address] [place] [address] Performed By: #### 2 132-9, 2284-8 #### [facility] CLIA [id number] [address] OF [facility] Magnesium SerPl-mCncon 12-11 Magnesium [Mass/Vol] 1.8 mg/dL Normal 1.7-2.3 [facility] Comment on above: Order Comment: Annie keiry Type: BLOOD SPECIMEN Ordering Facility: [facility] Address: [address] [place] [address] Performed By: #### 2 276-4, 07941-7, 85093-3, 80082-5 #### [facility] CLIA [id number] [address] [place] NURSING PROGon 12-11-2024 NURSING PROG HNO ID: [id number] Author: BRIANNA BETANCOURT, DOUG Service: Nursing Author Type: Registered Nurse Type: Nursing Progress Note Filed: 12/11/2024 15:17 Note Text: PATIENT EDUCATION HEART FAILURE PATIENT NAME: Berta Sanches PATIENT LOCATION: [place] [address]/[place] [address] 2 SURVIVAL SKILLS: Low Sodium Diet Weight [...] Cardiology Electronically Signed By: Brianna Betancourt Normal [facility] OCCULT BLD EXAM-DIAGon 12-11 OCCULT BLD EXAM-DIAG Positive Abnormal [facility] Comment on above: Performed By: #### 1 9123-9, 98268-6 #### [facility] CLIA [id number] [address] [place] [address] [place] Prot/Creat Uron 12-11-2024 Protein/Creatinine (U) [Mass ratio] 0.26 mg/mg High <0.15 [facility] Comment on above: Order Comment: Annie ricci Type: BLOOD SPECIMEN Ordering Facility: [facility] Address: [address] [place] [address] Result Comment: Adul t Proteinuria Categories: <0.15 mg/mg is considered normal to mildly increased 0.15 - 0.50 mg/mg is considered moderately increased >0.50 mg/mg is considered severely increased KDIGO. (2013). KDIGO 2012 Clinical Practice Guideline for the Evaluation and Management of Chronic Kidney Disease. Official Journal of the International Society of Nephrology, 3(1), 1-150. Performed By: #### 2 132-9, 2284-8 #### [facility] CLIA [id number] [address] [place] [address] [place] Protein/Creatinine (U) [Mass ratio]on 12-11-2024 Protein (U) [Mass/Vol] 8 mg/dL Normal 0-20 [facility] Comment on above: Order Comment: Annie ricci Type: BLOOD SPECIMEN Ordering Facility: [facility] Address: [address] [place] [address] Performed By: #### 2 132-9, 2284-8 #### [facility] CLIA [id number] [address] [place] [address] [place] Sodium ?Tm Ur-sCncon 025 Sodium Unsp time (U) [Moles/Vol] 67 mmol/L Normal 14-216 [facility] Comment on above: Order Comment: Speci men Type: BLOOD SPECIMEN Ordering Facility: [facility] Address: [address] [place] [address] Performed By: #### 2 132-9, 2284-8 #### [facility] CLIA [id number] [address] [place] [address] [place] NITROGEN, RANDOM URINEo n 12-11-2024 [place] NITROGEN,UR,RAN 400 mg/dL Normal 140-1500 [facility] Comment on above: Order Comment: Speci men Type: BLOOD SPECIMEN Ordering Facility: [facility] Address: [address] [place] [address] Performed By: #### 2 132-9, 2284-8 #### [facility] CLIA [id number] [address] [place] [address] [place] URINALYSIS, REFLEX MICROSCOP ICon 12-11-2024 Bilirubin Ql (U) Negative Normal Negative [facility] Comment on above: Order Comment: Speci men Type: URINE SPECIMEN Ordering Facility: [facility] Address: [address] [place] [address] Performed By: #### L [id number] #### [facility] CLIA [id number] [address] [place] [address] [place] Clarity (Unsp spec) Clear Normal Clear [facility] Comment on above: Order Comment: Speci men Type: URINE SPECIMEN Ordering Facility: [facility] Address: [address] [place] [address] Performed By: #### L [id number] #### [facility] CLIA [id number] [address] [place] Color (U) Yellow Normal Yellow [facility] Comment on above: Order Comment: Speci men Type: URINE SPECIMEN Ordering Facility: [facility] Address: [address] [place] [address] Performed By: #### L [id number] #### [facility] CLIA [id number] [address] Glucose Test strip (U) [Mass/Vol] Negative Normal Negative [facility] Comment on above: Order Comment: Speci men Type: URINE SPECIMEN Ordering Facility: [facility] Address: [facility] [place] [address] Performed By: #### L [id number] #### [facility] CLIA [id number] [address] [place] Hemoglobin Ql (U) Negative Normal Negative [facility] Comment on above: Order Comment: Speci men Type: URINE SPECIMEN Ordering Facility: [facility] Address: [address] [place] [address] Performed By: #### L [id number] #### [facility] CLIA [id number] [address] [place] Ketones Ql (U) Negative Normal Negative [facility] Comment on above: Order Comment: Speci men Type: URINE SPECIMEN Ordering Facility: [facility] Address: [address] [place] [address] Performed By: #### L [id number] #### [facility] CLIA [id number] [address] Leukocyte esterase Test strip Ql (U) Negative Normal Negative [facility] Comment on above: Order Comment: Speci men Type: URINE SPECIMEN Ordering Facility: [facility] Address: [facility] [place] [address] Performed By: #### L [id number] #### [facility] CLIA [id number] [address] Nitrite Ql (U) Negative Normal Negative [facility] Comment on above: Order Comment: Speci men Type: URINE SPECIMEN Ordering Facility: [facility] Address: [facility] [place] [address] Performed By: #### L [id number] #### [facility] CLIA [id number] [address] [place] [address] [place] pH (U) 6.5 [pH] Normal 5.0-8.0 [facility] Comment on above: Order Comment: Speci men Type: URINE SPECIMEN Ordering Facility: [facility] Address: [address] [place] [address] Performed By: #### L [id number] #### [facility] CLIA [id number] [address] Protein (U) [Mass/Vol] Negative Normal Negative [facility] Comment on above: Order Comment: Speci men Type: URINE SPECIMEN Ordering Facility: [facility] Address: [address] [place] [address] Performed By: #### L [id number] #### [facility] CLIA [id number] [address] Specific gravity (U) [Rel density] 1.010 Normal 1.005-1.030 [facility] Comment on above: Order Comment: Speci men Type: URINE SPECIMEN Ordering Facility: [facility] Address: [address] [place] [address] Performed By: #### L [id number] #### [facility] CLIA [id number] [address] Urobilinogen Ql (U) 0.2 EU/dL Normal 0.2-1.0 EU/dL [facility] Comment on above: Order Comment: Speci men Type: URINE SPECIMEN Ordering Facility: [facility] Address: [address] [place] [address] Performed By: #### L [id number] #### [facility] CLIA [id number] [address] [place] [address] [place] US RENAL ARTERY/VEINon [...] LEFT: 60-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 Smt Technician: JAMES Transcribe Date/Time: Dec 11 2024 11:31A Dictated by : ANNETTA ALLEN DO This examination was interpreted and the report reviewed and electronically signed by: ANNETTA ALLEN DO on Dec 11 2024 11:41AM EST [id number] Normal [facility] Vit B12 SerPl-ncon 025 Cobalamin (Vitamin B12) [Mass/Vol] 1393 pg/mL High 232-1245 [facility] Comment on above: Order Comment: Speci men Type: BLOOD SPECIMEN Ordering Facility: [facility] Address: [address] [place] [address] Performed By: #### 2 132-9, 2284-8 #### [facility] CLIA [id number] [address] [place] [address] [place] ALLIED HEALTHon 12-10-2024 ALLIED HEALTH HNO ID: [id number] Author: SHONDA CUNNINGHAM RT(R) Service: Radiology 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: No RADIOLOGY DEPARTMENT: General X-ray: Exam(s) Completed: Chest X-Ray PERIPHERAL IV DATA: Not applicable SIGNED BY: RT Boyd(R) December 10, 2024 8:10 AM Normal [facility] CBC W Auto Differential pane l (Bld)on 12-10-2024 Basophils (Bld) [#/Vol] 0.09 10*3/uL Normal <0.11 [facility] Comment on above: Order Comment: Speci men Type: BLOOD SPECIMEN Ordering Facility: [facility] Address: [address] [place] [address] Performed By: #### 5 7021-8 #### [facility] CLIA [id number] [address] [place] [address] [place] Basophils/100 WBC (Bld) 1.1 % Normal [facility] Comment on above: Order Comment: Speci men Type: BLOOD SPECIMEN Ordering Facility: [facility] Address: [address] [place] [address] Performed By: #### 5 7021-8 #### [facility] CLIA [id number] [address] [place] [address] [place] Differential cell count method Nom (Bld) Auto Normal [facility] Comment on above: Order Comment: Speci men Type: BLOOD SPECIMEN Ordering Facility: [facility] Address: [address] [place] [address] Performed By: #### 5 7021-8 #### [facility] CLIA [id number] [address] [place] [address] [place] Eosinophils (Bld) [#/Vol] 0.21 10*3/uL Normal <0.46 [facility] Comment on above: Order Comment: Speci men Type: BLOOD SPECIMEN Ordering Facility: [facility] Address: [address] [place] [address] Performed By: #### 5 7021-8 #### [facility] CLIA [id number] [address] Eosinophils/100 WBC (Bld) 2.6 % Normal [facility] Comment on above: Order Comment: Speci men Type: BLOOD SPECIMEN Ordering Facility: [facility] Address: [address] [place] [address] Performed By: #### 5 7021-8 #### [facility] CLIA [id number] [address] [place] Erythrocyte distribution width (RBC) [Ratio] 16.2 % High 11.5-15.0 [facility] Comment on above: Order Comment: Speci men Type: BLOOD SPECIMEN Ordering Facility: [facility] Address: [address] [place] [address] Performed By: #### 5 7021-8 #### [facility] CLIA [id number] [address] [place] Hematocrit (Bld) [Volume fraction] 26.5 % Low 36.0-46.0 [facility] Comment on above: Order Comment: Speci men Type: BLOOD SPECIMEN Ordering Facility: [facility] Address: [address] [place] [address] Performed By: #### 5 7021-8 #### [facility] CLIA [id number] [address] [place] Hemoglobin (Bld) [Mass/Vol] 8.2 g/dL Low 11.5-15.5 [facility] Comment on above: Order Comment: Speci men Type: BLOOD SPECIMEN Ordering Facility: [facility] Address: [address] [place] [address] Performed By: #### 5 7021-8 #### [facility] CLIA [id number] [address] Immature granulocytes (Bld) [#/Vol] 0.03 10*3/uL Normal <0.10 [facility] Comment on above: Order Comment: Speci men Type: BLOOD SPECIMEN Ordering Facility: [facility] Address: [address] [place] [address] Performed By: #### 5 7021-8 #### [facility] CLIA [id number] [address] Immature granulocytes/100 WBC (Bld) 0.4 % Normal [facility] Comment on above: Order Comment: Speci men Type: BLOOD SPECIMEN Ordering Facility: [facility] Address: [address] [place] [address] Performed By: #### 5 7021-8 #### [facility] CLIA [id number] [address] [place] Lymphocytes (Bld) [#/Vol] 2.52 10*3/uL Normal 1.00-4.00 [facility] Comment on above: Order Comment: Speci men Type: BLOOD SPECIMEN Ordering Facility: [facility] Address: [address] [place] [address] Performed By: #### 5 7021-8 #### [facility] CLIA [id number] [address] Lymphocytes/100 WBC (Bld) 30.7 % Normal [facility] Comment on above: Order Comment: Speci men Type: BLOOD SPECIMEN Ordering Facility: [facility] Address: [address] [place] [address] Performed By: #### 5 7021-8 #### [facility] CLIA [id number] [address] [place] [address] [place] MCH (RBC) [Entitic mass] 28.5 pg Normal 26.0-34.0 [facility] Comment on above: Order Comment: Speci men Type: BLOOD SPECIMEN Ordering Facility: [facility] Address: [address] [place] [address] Performed By: #### 5 7021-8 #### [facility] CLIA [id number] [address] [place] OF [facility] MCHC (RBC) [Mass/Vol] 30.9 g/dL Normal 30.5-36.0 [facility] Comment on above: Order Comment: Speci men Type: BLOOD SPECIMEN Ordering Facility: [facility] Address: [address] [place] [address] Performed By: #### 5 7021-8 #### [facility] CLIA [id number] [address] MCV (RBC) [Entitic vol] 92.0 fL Normal 80.0-100.[address] [facility] Comment on above: Order Comment: Speci men Type: BLOOD SPECIMEN Ordering Facility: [facility] Address: [address] [place] [address] Performed By: #### 5 7021-8 #### [facility] CLIA [id number] [address] [place] Monocytes (Bld) [#/Vol] 1.19 10*3/uL High <0.87 [facility] Comment on above: Order Comment: Speci men Type: BLOOD SPECIMEN Ordering Facility: [facility] Address: [address] [place] [address] Performed By: #### 5 7021-8 #### [facility] CLIA [id number] [address] Monocytes/100 WBC (Bld) 14.5 % Normal [facility] Comment on above: Order Comment: Speci men Type: BLOOD SPECIMEN Ordering Facility: [facility] Address: [address] [place] [address] Performed By: #### 5 7021-8 #### [facility] CLIA [id number] [address] [place] Neutrophils (Bld) [#/Vol] 4.17 10*3/uL Normal 1.45-7.50 [facility] Comment on above: Order Comment: Speci men Type: BLOOD SPECIMEN Ordering Facility: [facility] Address: [address] [place] [address] Performed By: #### 5 7021-8 #### [facility] CLIA [id number] [address] [place] Neutrophils/100 WBC (Bld) 50.7 % Normal [facility] Comment on above: Order Comment: Speci men Type: BLOOD SPECIMEN Ordering Facility: [facility] Address: [address] [place] [address] Performed By: #### 5 7021-8 #### [facility] CLIA [id number] [address] [place] Nucleated RBC (Bld) [#/Vol] 10*3/uL Normal <0.01 [facility] Comment on above: Order Comment: Speci men Type: BLOOD SPECIMEN Ordering Facility: [facility] Address: [address] [place] [address] Performed By: #### 5 7021-8 #### [facility] CLIA [id number] [address] [place] Nucleated RBC/100 WBC (Bld) [Ratio] 0.0 /100 WBC Normal [facility] Comment on above: Order Comment: Speci men Type: BLOOD SPECIMEN Ordering Facility: [facility] Address: [address] [place] [address] Performed By: #### 5 7021-8 #### [facility] CLIA [id number] [address] [place] [address] [place] Platelet mean volume (Bld) [Entitic vol] 10.5 fL Normal 9.0-12.7 [facility] Comment on above: Order Comment: Speci men Type: BLOOD SPECIMEN Ordering Facility: [facility] Address: [address] [place] [address] Performed By: #### 5 7021-8 #### [facility] CLIA [id number] [address] [place] [address] [place] Platelets (Bld) [#/Vol] 168 10*3/uL Normal 150-400 [facility] Comment on above: Order Comment: Speci men Type: BLOOD SPECIMEN Ordering Facility: [facility] Address: [address] [place] [address] Performed By: #### 5 7021-8 #### [facility] CLIA [id number] [address] [place] RBC (Bld) [#/Vol] 2.88 10*6/uL Low 3.90-5.20 [facility] Comment on above: Order Comment: Speci men Type: BLOOD SPECIMEN Ordering Facility: [facility] Address: [address] [place] [address] Performed By: #### 5 7021-8 #### [facility] CLIA [id number] [address] [place] WBC (Bld) [#/Vol] 8.21 10*3/uL Normal 3.70-11.00 [facility] Comment on above: Order Comment: Speci men Type: BLOOD SPECIMEN Ordering Facility: [facility] Address: [address] [place] [address] Performed By: #### 5 7021-8 #### [facility] CLIA [id number] [address] CONSULTon 12-10-2024 CONSULT HNO ID: [id number] Author: BETSY HALL MD Service: Nephrology Author Type: Physician Type: Consults Filed: 12/10/2024 19:42 Note Text: INPATIENT INITIAL NEPHROLOGY CONSULT SERVICE DATE: 12/10/2024 SERVICE TIME: 7:30 PM REASON FOR CONSULT: MONIQUE/ CRS REQUESTING PHYSICIAN: Dr Tuttle PRIMARY CARE PHYSICIAN: Deysi Collazo APRN.TWISTHAND CC: SOB and edema Subjective Ms. Sanches [...] history recent MONIQUE secondary to ATN requiring CAS[employer]LO[employer] PERSON with subsequent renal recovery hemodialysis catheter was [...] aneurysm of anterior communicating artery (HCC) Dr. 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 Lua PACEMAKER 10/2019 PART. HYSTERECTOMY W/WO RMVL OVARIES/TUBES 1973 h/o cervical cancer ovaries remain PAST SURGICAL HISTORY OF 1996 Aortic valve repair, Dr. Apodaca PAST SURGICAL HISTORY OF 2001 [address] Beltrán, [facility] PAST SURGICAL HISTORY OF 2015 clipping [...] red win (more content not included)... Normal [facility] Comprehensive metabolic 2000 panelon 12-10-2024 Albumin [Mass/Vol] 3.8 g/dL Low 3.9-4.9 [facility] Comment on above: Order Comment: Speci men Type: URINE SPECIMEN Ordering Facility: [facility] Address: [address] [place] [address] Performed By: #### L [id number] #### [facility] CLIA [id number] [address] [place] [address] [place] ALP [Catalytic activity/Vol] 139 U/L High 34-123 [facility] Comment on above: Order Comment: Speci men Type: URINE SPECIMEN Ordering Facility: [facility] Address: [address] [place] [address] Performed By: #### L [id number] #### [facility] CLIA [id number] [address] [place] [address] [place] ALT [Catalytic activity/Vol] 12 U/L Normal 7-38 [facility] Comment on above: Order Comment: Speci men Type: URINE SPECIMEN Ordering Facility: [facility] Address: [address] [place] [address] Performed By: #### L [id number] #### [facility] CLIA [id number] [address] [place] [address] [place] Anion gap [Moles/Vol] 13 mmol/L Normal 8-15 [facility] Comment on above: Order Comment: Speci men Type: URINE SPECIMEN Ordering Facility: [facility] Address: [address] [place] [address] Performed By: #### L [id number] #### [facility] CLIA [id number] [address] [place] [address] [place] AST [Catalytic activity/Vol] 27 U/L Normal 13-35 [facility] Comment on above: Order Comment: Speci men Type: URINE SPECIMEN Ordering Facility: [facility] Address: [address] [place] [address] Performed By: #### L [id number] #### [facility] CLIA [id number] [address] [place] [address] [place] Bilirubin [Mass/Vol] 0.8 mg/dL Normal 0.2-1.3 [facility] Comment on above: Order Comment: Speci men Type: URINE SPECIMEN Ordering Facility: [facility] Address: [address] [place] [address] Performed By: #### L [id number] #### [facility] CLIA [id number] [address] [place] [address] [place] Calcium [Mass/Vol] 9.0 mg/dL Normal 8.5-10.2 [facility] Comment on above: Order Comment: Speci men Type: URINE SPECIMEN Ordering Facility: [facility] Address: [address] [place] [address] Performed By: #### L [id number] #### [facility] CLIA [id number] [address] STATES OF [facility] Chloride [Moles/Vol] 98 mmol/L Normal 98-107 [facility] Comment on above: Order Comment: Speci men Type: URINE SPECIMEN Ordering Facility: [facility] Address: [address] [place] [address] Performed By: #### L [id number] #### [facility] CLIA [id number] [address] [place] [address] [place] CO2 [Moles/Vol] 20 mmol/L Low 22-30 [facility] Comment on above: Order Comment: Speci men Type: URINE SPECIMEN Ordering Facility: [facility] Address: [address] [place] [address] Performed By: #### L [id number] #### [facility] CLIA [id number] [address] [place] [address] [place] Creatinine [Mass/Vol] 1.90 mg/dL High 0.58-0.96 [facility] Comment on above: Order Comment: Speci men Type: URINE SPECIMEN Ordering Facility: [facility] Address: [address] [place] [address] Performed By: #### L [id number] #### [facility] CLIA [id number] [address] Creatinine and Glomerular filtration rate.predicted panel (S/P/Bld) 27 mL/min/1.73m??? Low >=60 [facility] Comment on above: Order Comment: Speci men Type: URINE SPECIMEN Ordering Facility: [facility] Address: [address] [place] [address] Result Comment: Mira mated Glomerular Filtration Rate [...] reflect actual GFR. Performed By: #### L [id number] #### [facility] CLIA [id number] [address] [place] [address] [place] Glucose [Mass/Vol] 140 mg/dL High 74-99 [facility] Comment on above: Order Comment: Speci men Type: URINE SPECIMEN Ordering Facility: [facility] Address: [address] [place] [address] Result Comment: The [place] Diabetes Association (ADA) provides guidance for cutoff [...] Standards of Medical Care in Diabetes 2016, [place] [employer] Association. Diabetes Care. 2016.39(Suppl 1). Performed By: #### L [id number] #### [facility] CLIA [id number] [address] [place] [address] [place] Potassium [Moles/Vol] 4.2 mmol/L Normal 3.7-5.1 [facility] Comment on above: Order Comment: [facility] Type: URINE SPECIMEN Ordering Facility: [facility] Address: [address] [place] [address] Performed By: #### L [id number] #### [facility] CLIA [id number] [address] [place] [address] [place] Protein [Mass/Vol] 7.3 g/dL Normal 6.3-8.0 [facility] Comment on above: Order Comment: Speci men Type: URINE SPECIMEN Ordering Facility: [facility] Address: [address] [place] [address] Performed By: #### L [id number] #### [facility] CLIA [id number] [address] [place] [address] [place] Sodium [Moles/Vol] 131 mmol/L Low 136-144 [facility] Comment on above: Order Comment: Speci men Type: URINE SPECIMEN Ordering Facility: [facility] Address: [address] [place] [address] Performed By: #### L [id number] #### [facility] CLIA [id number] [address] [place] [address] [place] Urea nitrogen [Mass/Vol] 63 mg/dL High 7-21 [facility] Comment on above: Order Comment: Speci men Type: URINE SPECIMEN Ordering Facility: [facility] Address: [address] [place] [address] Performed By: #### L [id number] #### [facility] CLIA [id number] [address] ECG COMPLETEon 12-10-2024 ECG COMPLETE Ventricular Rate : 7 9 BPM QRS Duration : 118 ms Q-T Interval : 418 ms QTC Calculation(Bazett) : 479 ms Calculated R Otwell : -30 degrees Calculated T Otwell : 161 degrees ATRIAL FIBRILLATION WITH PREMATURE VENTRICULAR OR ABERRANTLY CONDUCTED COMPLEXES LEFT AXIS DEVIATION LEFT VENTRICULAR HYPERTROPHY WITH QRS WIDENING ( R in aVL , Landen product ) T WAVE ABNORMALITY, CONSIDER LATERAL ISCHEMIA ABNORMAL ECG No Stemi Confirmed by ANSON MANRIQUE DO ([id number]) on 12/10/2024 3:12:25 PM NAME : BERTA SANCHES PID : [id number] : 1945 Gender : Female Race : ORD : [id number] Procedure Date : Dec 10 2024 07:55:48 Edit Date : Dec 10 2024 15:12:31 Diagnosis: ATRIAL FIBRILLATION WITH PREMATURE VENTRICULAR OR ABERRANTLY CONDUCTED COMPLEXES LEFT AXIS DEVIATION LEFT VENTRICULAR HYPERTROPHY WITH QRS WIDENING ( R in aVL , Landen product ) T WAVE ABNORMALITY, CONSIDER LATERAL ISCHEMIA ABNORMAL ECG No Stemi Confirmed by ANSON MANRIQUE DO ([id number]) on 12/10/2024 3:12:25 PM Test Reason : Chest Pain Location : 1 : ER ED Overread By : ANSON MANRIQUE DO Edited By : ANSON MANRIQUE DO Referred By : , Acquired by : [id number], Normal [facility] ED NOTEon 12-10-2024 ED NOTE HNO ID: [id number] Author: ANNETTE, RODERICK, RN Service: ? 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 Lua PACEMAKER 10/2019 PART. HYSTERECTOMY W/WO RMVL OVARIES/TUBES 1973 h/o cervical cancer ovaries remain PAST SURGICAL HISTORY OF 1996 Aortic valve repair, Dr. Apodaca PAST SURGICAL HISTORY OF 2001 [address] Beltrán, [facility] PAST SURGICAL HISTORY OF 2015 clipping [...] Weight H (more content not included)... Normal [facility] HIGH SENSITIVITY TROPONIN T (INITIAL)on 12-10-2024 Troponin T.cardiac High sensitivity method [Mass/Vol] 72 ng/L High <[address] [place] [address] Comment on above: Order Comment: Speci men Type: URINE SPECIMEN Ordering Facility: [facility] Address: [address] [place] [address] Performed By: #### L [id number] #### [facility] CLIA [id number] [address] HIGH SENSITIVITY TROPONIN T (SECOND)on 12-10-2024 Troponin T.cardiac High sensitivity method [Mass/Vol] 66 ng/L High <[address] [place] [address] Comment on above: Order Comment: Speci men Type: BLOOD SPECIMEN Ordering Facility: [facility] Address: [address] [place] [address] Performed By: #### 2 132-9, 2284-8 #### [facility] CLIA [id number] [address] HIGH SENSITIVITY TROPONIN T (THIRD) 3 HRS AFTER INITIALon 12-10-2024 Troponin T.cardiac High sensitivity method [Mass/Vol] 63 ng/L High <[address] [place] [address] Comment on above: Order Comment: Speci men Type: BLOOD SPECIMEN Ordering Facility: [facility] Address: [address] [place] [address] Performed By: #### 2 132-9, 2284-8 #### [facility] CLIA [id number] [address] [place] HISTORY PHYSICALon HISTORY PHYSICAL HNO ID: [id number] Author: JUAN DIEGO KNOWLES MD Service: Hospital Medicine Author Type: Physician Type: H&P Filed: 12/10/2024 13:50 Note Text: HISTORY AND PHYSICAL EXAMINATION PRIMARY CARE PHYSICIAN: Deysi Collazo APRN.TWISTHAND HPI: 79 yo woman with hx of 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 Lua PACEMAKER 10/2019 PART. HYSTERECTOMY W/WO RMVL OVARIES/TUBES 1974 h/o cervical cancer ovaries remain PAST SURGICAL HISTORY OF 1996 Aortic valve repair, Dr. Apodaca PAST SURGICAL HISTORY OF 2001 [address] Beltrán, [facility] PAST SURGICAL HISTORY OF 2016 clipping [...] progressive SO (more content not included)... Normal [facility] Magnesium [facility] 12-10 Magnesium [Mass/Vol] 1.9 mg/dL Normal 1.7-2.3 [facility] Comment on above: Order Comment: Speci men Type: URINE SPECIMEN Ordering Facility: [facility] Address: [address] [place] [address] Performed By: #### L [id number] #### [facility] CLIA [id number] [address] OF [place] NT-proBNP [facility] 12-10 Natriuretic peptide.B prohormone N-Terminal [Mass/Vol] 05701 pg/mL High <450 [facility] Comment on above: Order Comment: Speci men Type: URINE SPECIMEN Ordering Facility: [facility] Address: [address] [place] [address] Performed By: #### L [id number] #### [facility] CLIA [id number] [address] [place] XR CHEST 1V [...] lungs. Cardiomegaly/enlargeme nt of the cardiac silhouette. Smt Technician: PSCMike Transcribe Date/Time: Dec 10 2024 8:28A Dictated by : KIERSTEN MONTENEGRO MD This examination was interpreted and the report reviewed and electronically signed by: KIERSTEN MONTENEGRO MD on Dec 10 2024 8:31AM EST [id number] Normal [facility] Basic metabolic 2000 panelon 12-01-2024 Anion gap [Moles/Vol] 14 mmol/L Normal 8-15 [facility] Comment on above: Order Comment: Speci men Type: BLOOD SPECIMEN Ordering Facility: [facility] Address: [address] [place] [address] Performed By: #### 2 4331-1 #### [facility] CLIA [id number] [address] [place] [address] [place] [facility] [id number] [address] [place] [address] [place] #### 72136-1 #### [facility] CLIA [id number] [address] [place] [address] [place] Calcium [Mass/Vol] 9.5 mg/dL Normal 8.5-10.2 [facility] Comment on above: Order Comment: Speci men Type: BLOOD SPECIMEN Ordering Facility: [facility] Address: [address] [place] [address] Performed By: #### 2 4331-1 #### [facility] CLIA [id number] [address] [place] [address] [place] [facility] [id number] [address] [place] [address] [place] #### 20706-7 #### [facility] CLIA [id number] [address] [place] [address] [place] Chloride [Moles/Vol] 97 mmol/L Low 98-107 [facility] Comment on above: Order Comment: Speci men Type: BLOOD SPECIMEN Ordering Facility: [facility] Address: [address] [place] [address] Performed By: #### 2 4331-1 #### [facility] CLIA [id number] [address] [place] [address] [place] [facility] CLIA [id number] [address] [place] [address] [place] #### 28403-0 #### [facility] CLIA [id number] [address] [place] [address] [place] CO2 [Moles/Vol] 22 mmol/L Normal 22-30 [facility] Comment on above: Order Comment: Speci men Type: BLOOD SPECIMEN Ordering Facility: [facility] Address: [address] [place] [address] Performed By: #### 2 4331-1 #### [facility] CLIA [id number] [address] [place] [address] [place] [facility] CLIA [id number] [address] [place] [address] [place] #### 92127-4 #### [facility] CLIA [id number] [address] [place] [address] [place] Creatinine [Mass/Vol] 1.79 mg/dL High 0.58-0.96 [facility] Comment on above: Order Comment: Speci men Type: BLOOD SPECIMEN Ordering Facility: [facility] Address: [address] [place] [address] Performed By: #### 2 4331-1 #### [facility] CLIA [id number] [address] [place] [address] [place] [facility] CLIA [id number] [address] [place] [address] [place] #### 95346-7 #### [facility] CLIA [id number] [address] [place] [address] [place] Creatinine and Glomerular filtration rate.predicted panel (S/P/Bld) 29 mL/min/1.73m??? Low >=60 [facility] Comment on above: Order Comment: Speci men Type: BLOOD SPECIMEN Ordering Facility: [facility] Address: [address] [place] [address] Result Comment: Mira mated Glomerular Filtration Rate [...] By: #### 2 4331-1 #### [facility] CLIA [id number] [address] [place] [address] [place] [facility] CLIA [id number] [address] [place] [address] [place] #### 37779-7 #### [facility] CLIA [id number] [address] [place] [address] [place] Glucose [Mass/Vol] 151 mg/dL High 74-99 [facility] Comment on above: Order Comment: Speci men Type: BLOOD SPECIMEN Ordering Facility: [facility] Address: [address] [place] [address] Result Comment: The [place] Diabetes Association (ADA) provides guidance for cutoff [...] Standards of Medical Care in Diabetes 2016, [place] Diabetes Association. Diabetes Care. 2016.39(Suppl 1). Performed By: #### 2 4331-1 #### [facility] CLIA [id number] [address] [place] [address] [place] [facility] [id number] [place] [address] [place] #### 21347-2 #### [facility] CLIA [id number] [address] [place] [address] [place] Potassium [Moles/Vol] 4.2 mmol/L Normal 3.7-5.1 [facility] Comment on above: Order Comment: Speci men Type: BLOOD SPECIMEN Ordering Facility: [facility] Address: [address] [place] [address] Performed By: #### 2 4331-1 #### [facility] CLIA [id number] [address] [place] [address] [place] [facility]IA [id number] [address] [place] [address] [place] #### 83015-7 #### [facility] CLIA [id number] [address] [place] [address] [place] Sodium [Moles/Vol] 133 mmol/L Low 136-144 [facility] Comment on above: Order Comment: Speci men Type: BLOOD SPECIMEN Ordering Facility: [facility] Address: [address] [place] [id number] Performed By: #### 2 4331-1 #### [facility] CLIA [id number] [address] [place] [address] [place] [facility] CLIA [id number] [address] [place] [address] [place] #### 82799-8 #### [facility] CLIA [id number] [address] [place] [address] [place] Urea nitrogen [Mass/Vol] 37 mg/dL High 7-21 [facility] Comment on above: Order Comment: Speci men Type: BLOOD SPECIMEN Ordering Facility: [facility] Address: [address] [place] [address] Performed By: #### 2 4331-1 #### [facility] CLIA [id number] [address] [place] [address] [place] [facility] CLIA [id number] [address] [place] [address] [place] #### 73516-6 #### [facility] CLIA [id number] [address] [place] [address] [place] NT-proBNP [facility] 12-01 Natriuretic peptide.B prohormone N-Terminal [Mass/Vol] 53521 pg/mL High <450 [facility] Comment on above: Order Comment: Speci men Type: BLOOD SPECIMEN Ordering Facility: [facility] Address: [address] [place], [place] [address] Performed By: #### 3 3762-6 #### [facility] CLIA [id number] [address] [place] [address] [place] Basic metabolic 2000 panelon 11-20-2024 Anion gap [Moles/Vol] 19 mmol/L High 8-15 [facility] Comment on above: Order Comment: Speci men Type: BLOOD SPECIMEN Ordering Facility: [facility] Address: [address] [place] [address] Performed By: #### 3 3762-6 #### [facility] CLIA [id number] [address] [place], [place] [address] [place] Calcium [Mass/Vol] 9.5 mg/dL Normal 8.5-10.2 [facility] Comment on above: Order Comment: Speci men Type: BLOOD SPECIMEN Ordering Facility: [facility] Address: [address] [place] [address] Performed By: #### 3 3762-6 #### [facility] CLIA [id number] [address] [place] [address] [place] Chloride [Moles/Vol] 98 mmol/L Normal 98-107 [facility] Comment on above: Order Comment: Speci men Type: BLOOD SPECIMEN Ordering Facility: [facility] Address: [address] [place] [address] Performed By: #### 3 3762-6 #### [facility] CLIA [id number] [address] [place] [address] [place] CO2 [Moles/Vol] 18 mmol/L Low 22-30 [facility] Comment on above: Order Comment: Speci men Type: BLOOD SPECIMEN Ordering Facility: [facility] Address: [address] [place], [place] [address] Performed By: #### 3 3762-6 #### [facility] CLIA [id number] [address] [place] [address] [place] Creatinine [Mass/Vol] 1.70 mg/dL High 0.58-0.96 [facility] Comment on above: Order Comment: Speci men Type: BLOOD SPECIMEN Ordering Facility: [facility] Address: [address] [place] [address] Performed By: #### 3 3762-6 #### [facility] CLIA [id number] [address] [place] [address] [place] Creatinine and Glomerular filtration rate.predicted panel (S/P/Bld) 30 mL/min/1.73m??? Low >=60 [facility] Comment on above: Order Comment: Annie ricci Type: BLOOD SPECIMEN Ordering Facility: [facility] Address: [address] [place] [address] Result Comment: Mira mated Glomerular Filtration Rate [...] By: #### 3 3762-6 #### [facility] CLIA [id number] [address] [place] [address] [place] Glucose [Mass/Vol] 150 mg/dL High 74-99 [facility] Comment on above: Order Comment: Annie ricci Type: BLOOD SPECIMEN Ordering Facility: [facility] Address: [address] [place] [address] Result Comment: The [place] Diabetes Association (ADA) provides guidance for cutoff [...] Standards of Medical Care in Diabetes 2016, [place] Diabetes Association. Diabetes Care. 2016.39(Suppl 1). Performed By: #### 3 3762-6 #### [facility] CLIA [id number] [address] [place] [address] [place] Potassium [Moles/Vol] 4.6 mmol/L Normal 3.7-5.1 [facility] Comment on above: Order Comment: Speci men Type: BLOOD SPECIMEN Ordering Facility: [facility] Address: [address] [place] [address] Performed By: #### 3 3762-6 #### [facility] CLIA [id number] [address] [place] [address] [place] Sodium [Moles/Vol] 135 mmol/L Low 136-144 [facility] Comment on above: Order Comment: Speci men Type: BLOOD SPECIMEN Ordering Facility: [facility] Address: [address] [place] [address] Performed By: #### 3 3762-6 #### [facility] CLIA [id number] [address] [place] [address] [place] Urea nitrogen [Mass/Vol] 37 mg/dL High 7-21 [facility] Comment on above: Order Comment: Speci men Type: BLOOD SPECIMEN Ordering Facility: [facility] Address: [address] [place] [address] Performed By: #### 3 3762-6 #### [facility] CLIA [id number] [address] [place] [address] [place] CNOVon 11-20-2024 CNOV Office Visit (JOHNNY ) BERTA SANCHES ([id number]) 1945 [facility] Date Time Provider Department 11/20/24 8:00 AM CARLA BURDICK During your visit today, we recorded the following information about you: Pulse Respiration Blood pressure Weight 84/minute 12/minute 154/62 65.2 kg Height 1.575 m Carla Burdick MD 11/20/2024 8:50 AM Signed [facility] SE[facility] Cardiology ([facility]) [address] [facility] [id number] OUTPATIENT VISIT DATE PRIMARY CARE PHYSICIAN: Doreen Le [address] [place] [address] HISTORY OF PRESENT ILLNESS: Ms. 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 Lua PACEMAKER 10/2019 PART. HYSTERECTOMY W/WO RMVL OVARIES/TUBES 1974 h/o cervical cancer ovaries remain PAST SURGICAL HISTORY OF 1996 Aortic valve repair, Dr. Apodaca PAST SURGICAL HISTORY OF 2001 [address] Beltrán, [facility] PAST SURGICAL HISTORY OF 2015 clipping [...] not included)... Normal [facility] NT-proBNP [facility] 11-20 Natriuretic peptide.B prohormone N-Terminal [Mass/Vol] 47698 pg/mL High <450 [facility] Comment on above: Order Comment: Speci men Type: BLOOD SPECIMEN Ordering Facility: [facility] Address: [address] [place] [address] Performed By: #### 3 3762-6 #### [facility] CLIA [id number] [address] [place] [address] OF [facility] CNPNon 11-14-2024 CNPN Telephone (CARDWS) BERTA SANCHES ([id number]) 1945 F [facility] Date Time Provider Department 11/14/24 [...] on Wednesday when I am there at [place]. 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 Normal [facility] Basic metabolic 2000 panelon 11-13-2024 Anion gap [Moles/Vol] 11 mmol/L Normal 8-15 [facility] Comment on above: Order Comment: Speci men Type: BLOOD SPECIMEN Ordering Facility: [facility] Address: [address] [place] [address] Performed By: #### 2 4331-1 #### [facility] CLIA [id number] [address] [place] [address] [place] [facility] [id number] [address] [place] [address] [place] #### 09146-7 #### [facility] CLIA [id number] [address] [place] [address] [place] Calcium [Mass/Vol] 9.3 mg/dL Normal 8.5-10.2 [facility] Comment on above: Order Comment: Speci men Type: BLOOD SPECIMEN Ordering Facility: [facility] Address: [address] [place] [address] Performed By: #### 2 4331-1 #### [facility] CLIA [id number] [address] [place] [address] [place] [facility] [id number] [address] [place] [address] [place] #### 60388-7 #### [facility] CLIA [id number] [address] [place] [address] [place] Chloride [Moles/Vol] 98 mmol/L Normal 98-107 [facility] Comment on above: Order Comment: Speci men Type: BLOOD SPECIMEN Ordering Facility: [facility] Address: [address] [id number] Performed By: #### 2 4331-1 #### [facility] CLIA [id number] [address] [place] [address] [place] [facility] CLIA [id number] [address] [place] [address] [place] #### 64862-2 #### [facility] CLIA [id number] [address] [place] [address] [place] CO2 [Moles/Vol] 26 mmol/L Normal 22-30 [facility] Comment on above: Order Comment: Speci men Type: BLOOD SPECIMEN Ordering Facility: [facility] Address: [address] [id number] Performed By: #### 2 4331-1 #### [facility] CLIA [id number] [address] [place] [address] [place] [facility] CLIA [id number] [address] [place] [address] [place] #### 78330-9 #### [facility] CLIA [id number] [address] [place] [address] [place] Creatinine [Mass/Vol] 1.82 mg/dL High 0.58-0.96 [facility] Comment on above: Order Comment: Speci men Type: BLOOD SPECIMEN Ordering Facility: [facility] Address: [address] [place] [address] Performed By: #### 2 4331-1 #### [facility] CLIA [id number] [address] [place], [place] [address] [place] [facility] CLIA [id number] [address] [place] [address] [place] #### 75066-7 #### [facility] CLIA [id number] [address] [place] [address] [place] Creatinine and Glomerular filtration rate.predicted panel (S/P/Bld) 28 mL/min/1.73m??? Low >=60 [facility] Comment on above: Order Comment: Annie ricci Type: BLOOD SPECIMEN Ordering Facility: [facility] Address: [address] [place] [address] Result Comment: Mira mated Glomerular Filtration Rate [...] By: #### 2 4331-1 #### [facility] CLIA [id number] [address] [place] [address] [place] [facility] CLIA [id number] [address] [place] [address] [place] #### 87062-7 #### [facility] CLIA [id number] [address] [place] [address] [place] Glucose [Mass/Vol] 127 mg/dL High 74-99 [facility] Comment on above: Order Comment: Annie ricci Type: BLOOD SPECIMEN Ordering Facility: [facility] Address: [address] [place] [address] Result Comment: The [place] Diabetes Association (ADA) provides guidance for cutoff [...] Standards of Medical Care in Diabetes 2016, [place] [employer] Association. Diabetes Care. 2016.39(Suppl 1). Performed By: #### 2 4331-1 #### [facility] CLIA [id number] [address] [place] [address] [place] [facility] CLIA [id number] [address] [place] [address] [place] #### 19421-7 #### [facility] CLIA [id number] [address] [place] [address] [place] Potassium [Moles/Vol] 4.0 mmol/L Normal 3.7-5.1 [facility] Comment on above: Order Comment: Speci men Type: BLOOD SPECIMEN Ordering Facility: [facility] Address: [address] [place] [address] Performed By: #### 2 4331-1 #### [facility] CLIA [id number] [address] [place] [address] [place] [facility] [id number] [address] [place] [address] [place] #### 31680-8 #### [facility] CLIA [id number] [address] [place] [address] [place] Sodium [Moles/Vol] 135 mmol/L Low 136-144 [facility] Comment on above: Order Comment: Speci men Type: BLOOD SPECIMEN Ordering Facility: [facility] Address: [address] [place] [address] Performed By: #### 2 4331-1 #### [facility] CLIA [id number] [address] [place] [address] [place] [facility] [id number] [address] [place] [address] [place] #### 18370-3 #### [facility] CLIA [id number] [address] [place] [address] [place] Urea nitrogen [Mass/Vol] 41 mg/dL High 7-21 [facility] Comment on above: Order Comment: Speci men Type: BLOOD SPECIMEN Ordering Facility: [facility] Address: [address] [place] [address] Performed By: #### 2 4331-1 #### [facility] CLIA [id number] [address] [place] [address] [place] [facility] [id number] [address] [place] [address] [place] #### 49140-1 #### [facility] CLIA [id number] [address] [place] [address] [place] NT-proBNP [facility] 11-13 Natriuretic peptide.B prohormone N-Terminal [Mass/Vol] 27252 pg/mL High <450 [facility] Comment on above: Order Comment: Speci men Type: BLOOD SPECIMEN Ordering Facility: [facility] Address: [address] [place] [address] Performed By: #### 2 4331-1 #### [facility] CLIA [id number] [address] [place] [address] [place] [facility] CLIA [id number] [address] [place] [address] [place] #### 07061-7 #### [facility] CLIA [id number] [address] [place] [address] [place] CNOVon 11-06-2024 CNOV Office Visit ([facility] ) BERTA SANCHES ([id number]) 1945 [place] Date Time Provider Department 11/06/24 2:40 PM CARLA BURDICK During your visit today, we recorded the following information about you: Pulse Respiration Blood pressure Weight 68/minute 12/minute 134/54 68.9 kg Height 1.575 m Carla Burdick MD 11/06/2024 5:01 PM Signed [facility]IOLOGY Cardiology ([facility]) [address] [facility] [id number] OUTPATIENT VISIT DATE 11/06/2024 PRIMARY CARE PHYSICIAN: Doreen Le [address] [place] [address] HISTORY OF PRESENT ILLNESS: Ms. Sanches is [...] admitted to the hospital while vacationing in [place]. She underwent SMA stent placement. This was followed by a long admission for decompensated congestive heart failure in the setting of the renal insufficiency. 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 Lua PACEMAKER 10/2019 PART. HYSTERECTOMY W/WO RMVL OVARIES/TUBES 1973 h/o cervical cancer ovaries remain PAST SURGICAL HISTORY OF 1996 Aortic valve repair, Dr. Apodaca PAST SURGICAL HISTORY OF 2001 [address] Beltrán, [facility] PAST SURGICAL HISTORY OF 2015 clipping [...] Allergen Reactions (more content not included)... Normal [facility] Basic metabolic 2000 panelon 11-03-2024 Anion gap [Moles/Vol] 11 mmol/L 8 - 15 mmol/L [facility] Calcium [Mass/Vol] 9.1 mg/dL 8.5 - 10. 2 mg/dL [facility] Chloride [Moles/Vol] 84 mmol/L Low 98 - 10 7 mmol/L [facility] CO2 [Moles/Vol] 27 mmol/L 22 - 30 mmol/L [facility] Creatinine [Mass/Vol] 2.36 mg/dL High 0.58 - 0.96 mg/dL [facility] GFR/1.73 sq M.predicted among non-blacks MDRD (S/P/Bld) [Vol rate/Area] 20 mL/min/{1.73_m2} Low - PINF [facility] Comment on above: Estimated Glomerular Filtration Rate [...] 114 mg/dL High 74 - 99 mg/dL [facility] Comment on above: The [place] Diabete s Association (ADA) provides guidance for [...] Standards of Medical Care in Diabetes 2016, [place] Diabetes Association. Diabetes Care. 2016.39(Suppl 1). Interpretation and review of laboratory results Abnormal [facility] Potassium [Moles/Vol] 4.3 mmol/L 3.7 - 5.1 mmol/L [facility] Sodium [Moles/Vol] 122 mmol/L Low 136 - 144 mmol/L [facility] Urea nitrogen [Mass/Vol] 57 mg/dL High 7 - 21 mg/dL [facility] Anion gap [Moles/Vol] 11 mmol/L Normal 8-15 [facility] Comment on above: Order Comment: Annie ricci Type: BLOOD SPECIMEN Ordering Facility: [facility] Address: [address] [place] [address] Performed By: #### 2 132-9, 2283-8 #### [facility] CLIA [id number] [address] [place] [address] [place] Calcium [Mass/Vol] 9.1 mg/dL Normal 8.5-10.2 [facility] Comment on above: Order Comment: Annie ricci Type: BLOOD SPECIMEN Ordering Facility: [facility] Address: [address] [place] [address] Performed By: #### 2 132-9, 2283-8 #### [facility] CLIA [id number] [address] [place] [address] [place] Chloride [Moles/Vol] 84 mmol/L Low 98-107 [facility] Comment on above: Order Comment: Annie ricci Type: BLOOD SPECIMEN Ordering Facility: [facility] Address: [address] [place] [address] Performed By: #### 2 132-9, 2283-8 #### [facility] CLIA [id number] [address] [place] [address] [place] CO2 [Moles/Vol] 27 mmol/L Normal 22-30 [facility] Comment on above: Order Comment: Annie ricci Type: BLOOD SPECIMEN Ordering Facility: [facility] Address: [address] [place] [address] Performed By: #### 2 132-9, 2283-8 #### [facility] CLIA [id number] [address] [place] [address] [place] Creatinine [Mass/Vol] 2.36 mg/dL High 0.58-0.96 [facility] Comment on above: Order Comment: Annie ricci Type: BLOOD SPECIMEN Ordering Facility: [facility] Address: [address] [place] [address] Performed By: #### 2 132-9, 2283-8 #### [facility] CLIA [id number] [address] Creatinine and Glomerular filtration rate.predicted panel (S/P/Bld) 20 mL/min/1.73m??? Low >=60 [facility] Comment on above: Order Comment: Annie ricci Type: BLOOD SPECIMEN Ordering Facility: [facility] Address: [address] [place] [address] Result Comment: Mira mated Glomerular Filtration Rate [...] Performed By: #### 2 132-9, 2283-8 #### [facility] CLIA [id number] [address] [place] Glucose [Mass/Vol] 114 mg/dL High 74-99 [facility] Comment on above: Order Comment: Annie ricci Type: BLOOD SPECIMEN Ordering Facility: [facility] Address: [address] [place] [address] Result Comment: The [place] Diabetes Association (ADA) provides guidance for cutoff [...] Standards of Medical Care in Diabetes 2016, [place] Diabetes Association. Diabetes Care. 2016.39(Suppl 1). Performed By: #### 2 132-9, 2283-8 #### [facility] CLIA [id number] [address] Potassium [Moles/Vol] 4.3 mmol/L Normal 3.7-5.1 [facility] Comment on above: Order Comment: Annie ricci Type: BLOOD SPECIMEN Ordering Facility: [facility] Address: [address] [place] [address] Performed By: #### 2 132-9, 2283-8 #### [facility] CLIA [id number] [address] Sodium [Moles/Vol] 122 mmol/L Low 136-144 [facility] Comment on above: Order Comment: Annie ricci Type: BLOOD SPECIMEN Ordering Facility: [facility] Address: [address] [place] [address] Performed By: #### 2 132-9, 2283-8 #### [facility] CLIA [id number] [address] Urea nitrogen [Mass/Vol] 57 mg/dL High 7-21 [facility] Comment on above: Order Comment: Annie ricci Type: BLOOD SPECIMEN Ordering Facility: [facility] Address: [address] [place] [address] Performed By: #### 2 132-9, 2283-8 #### [facility] CLIA [id number] [address] [facility] CNOVon 11-03-2024 CNOV Office Visit ([facility] ) BERTA SANCHES ([id number]) 1945 [place] Date Time Provider Department 11/03/24 9:00 AM ALBIN GU [facility] During your visit today, we [...] or concern, you can call me at [phone]. Albin Gu APRN.CNP 11/03/2024 10:28 AM Signed [facility] [place] [facility] OUTPATIENT VISIT [...] and was worried about traveling home to [place] in a few days. Discussed with her taking lasix as it was prescribed. As her spironolactone was stopped, did advise patient restart this at 25 mg once a day for four days only. She was instructed to call office in a week to review symptoms. On 10/15, patient presented back to [facility] for gastrointestinal bleed. She had a colonoscopy [...] and entresto. The patient wished to leave [place] so she could return to [place]. Cardiology and Pulmonary agreed with discharge. Today, the patient reports feeling okay. Since she was hospitalized in [place], she has not felt that well. Feels very tired. Denies shortness of breath. Was seen by her PCP on Wednesday who suggested patient be admitted due to significant worsening in kidney function however, the patient and declined admission as she just returned home the day before. States she was started on bumex drip and then received oral bumex while in [place] and noted a worsening in kidney function. [...] roasted chicken, asparagus and salad. While in [place], she was very conscious about her diet. She weighed every day. She feels after the first hospitalization, she gained approx 20 lbs which she did call and discuss this with this HF FACS TEACHER. Wearing lidocaine patch over site to right side of neck as she mentions havi (more content not included)... Normal [facility] 11-03-2024 [facility] Telephone ([facility]) BERTA SANCHES ([id number]) 1945 [facility] Date Time Provider Department 11/03/24 ALBIN GU [facility] During your visit today, we recorded the following information about you: Albin Gu APRN.TWISTHAND 11/03/2024 12:49 PM Signed Called patient to [...] agree with plan of care. 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 Normal [facility] CBC W Auto Differential pane l (Bld)on 10-31-2024 Basophils (Bld) [#/Vol] 0.06 10*3/uL [facility] Basophils/100 WBC (Bld) 1 % C [facility] Differential cell count method Nom (Bld) Auto [facility] Eosinophils (Bld) [#/Vol] 0.13 10*3/uL [facility] Eosinophils/100 WBC (Bld) 2.1 % [facility] Erythrocyte distribution width (RBC) [Ratio] 16.8 % High 11.5 - 15.0 % [facility] Hematocrit (Bld) [Volume fraction] 26.3 % Low 36.0 - 46.0 % [facility] Hemoglobin (Bld) [Mass/Vol] 8.7 g/dL Low 11.5 - 15.5 g/dL [facility] Immature granulocytes (Bld) [#/Vol] 0.04 10*3/uL [facility] Immature granulocytes/100 WBC (Bld) 0.6 % [facility] Interpretation and review of laboratory results Abnormal [facility] Lymphocytes (Bld) [#/Vol] 1.29 10*3/uL [facility] Lymphocytes/100 WBC (Bld) 20.6 % [facility] MCH (RBC) [Entitic mass] 31.6 pg 26.0 - 34.0 pg [facility] MCHC (RBC) [Mass/Vol] 33.1 g/dL 30.5 - 36.0 g/dL [facility] MCV (RBC) [Entitic vol] 95.6 fL 80.0 - 100.0 fL [facility] Monocytes (Bld) [#/Vol] 0.82 10*3/uL [facility] Monocytes/100 WBC (Bld) 13.1 % C [facility] Neutrophils (Bld) [#/Vol] 3.92 10*3/uL [facility] Neutrophils/100 WBC (Bld) 62.6 % [facility] Nucleated RBC (Bld) [#/Vol] NINF [facility] Nucleated RBC/100 WBC (Bld) [Ratio] 0 % /100 WBC [facility] Platelet mean volume (Bld) [Entitic vol] 9.5 fL 9.0 - 12.7 fL [facility] Platelets (Bld) [#/Vol] 202 10*3/uL [facility] RBC (Bld) [#/Vol] 2.75 10*6/uL Low 3.90 - 5.2 0 m/uL [facility] WBC (Bld) [#/Vol] 6.26 10*3/uL [facility] Basophils (Bld) [#/Vol] 0.06 10*3/uL Normal <0.11 [facility] Comment on above: Order Comment: Speci men Type: BLOOD SPECIMEN Ordering Facility: [facility] Address: [address] [place] [address] Performed By: #### 2 4331-1 #### [facility] CLIA [id number] [address] [place] [address] [place] [facility] CLIA [id number] [address] [place] [address] [place] #### 83170-6 #### [facility] CLIA [id number] [address] [place] [address] [place] Basophils/100 WBC (Bld) 1.0 % [facility] Comment on above: Order Comment: Speci men Type: BLOOD SPECIMEN Ordering Facility: [facility] Address: [address] [place] [address] Performed By: #### 2 4331-1 #### [facility] CLIA [id number] [address] [place] [address] [place] [facility] CLIA [id number] [address] [place] [address] [place] #### 13991-9 #### [facility] CLIA [id number] [address] [place] [address] [place] Differential cell count method Nom (Bld) Auto Normal [facility] Comment on above: Order Comment: Speci men Type: BLOOD SPECIMEN Ordering Facility: [facility] Address: [address] [place] [address] Performed By: #### 2 4331-1 #### [facility] CLIA [id number] [address] [place] [address] [place] [facility] CLIA [id number] [address] [place] [address] [place] #### 78181-2 #### [facility] CLIA [id number] [address] [place] [address] [place] Eosinophils (Bld) [#/Vol] 0.13 10*3/uL Normal <0.46 [facility] Comment on above: Order Comment: Speci men Type: BLOOD SPECIMEN Ordering Facility: [facility] Address: [address] [place] [address] Performed By: #### 2 4331-1 #### [facility] CLIA [id number] [address] [place] [address] [place] [facility] CLIA [id number] [address] [place] [address] [place] #### 53166-5 #### [facility] CLIA [id number] [address] [place] [address] [place] Eosinophils/100 WBC (Bld) 2.1 % Normal [facility] Comment on above: Order Comment: Speci men Type: BLOOD SPECIMEN Ordering Facility: [facility] Address: [address] [place], [place] [address] Performed By: #### 2 4331-1 #### [facility] CLIA [id number] [address] [place] [address] [place] [facility] CLIA [id number] [address] [place] [address] [place] #### 58262-0 #### [facility] CLIA [id number] [address] [place] [address] [place] Erythrocyte distribution width (RBC) [Ratio] 16.8 % High 11.5-15.0 [facility] Comment on above: Order Comment: Speci men Type: BLOOD SPECIMEN Ordering Facility: [facility] Address: [address] [place] [address] Performed By: #### 2 4331-1 #### [facility] CLIA [id number] [address] [place] [address] [place] [facility] [id number] [address] [place] [address] [place] #### 94724-5 #### [facility] CLIA [id number] [address] [place] [address] [place] Hematocrit (Bld) [Volume fraction] 26.3 % Low 36.0-46.0 [facility] Comment on above: Order Comment: Speci men Type: BLOOD SPECIMEN Ordering Facility: [facility] Address: [address] [place], [place] [address] Performed By: #### 2 4331-1 #### [facility] CLIA [id number] [address] [place] [address] [place] [facility] [id number] [address] [place] [address] [place] #### 51338-5 #### [facility] CLIA [id number] [address] [place], [place] [address] [place] Hemoglobin (Bld) [Mass/Vol] 8.7 g/dL Low 11.5-15.5 [facility] Comment on above: Order Comment: Speci men Type: BLOOD SPECIMEN Ordering Facility: [facility] Address: [address] [place] [address] Performed By: #### 2 4331-1 #### [facility] CLIA [id number] [address] [place] [address] [place] [facility] CLIA [id number] [address] [place] [address] [place] #### 04135-7 #### [facility] CLIA [id number] [address] [place] [address] [place] Immature granulocytes (Bld) [#/Vol] 0.04 10*3/uL Normal <0.10 [facility] Comment on above: Order Comment: Speci men Type: BLOOD SPECIMEN Ordering Facility: [facility] Address: [address] [place] [address] Performed By: #### 2 4331-1 #### [facility] CLIA [id number] [address] [place] [address] [place] [facility] CLIA [id number] [address] [place] [address] [place] #### 40142-1 #### [facility] CLIA [id number] [address] [place] [address] [place] Immature granulocytes/100 WBC (Bld) 0.6 % Normal [facility] Comment on above: Order Comment: Speci men Type: BLOOD SPECIMEN Ordering Facility: [facility] Address: [address] [place] [address] Performed By: #### 2 4331-1 #### [facility] CLIA [id number] [address] [place] [address] [place] [facility] CLIA [id number] [address] [place] [address] [place] #### 20264-4 #### [facility] CLIA [id number] [address] [place] [address] [place] Lymphocytes (Bld) [#/Vol] 1.29 10*3/uL Normal 1.00-4.00 [facility] Comment on above: Order Comment: Speci men Type: BLOOD SPECIMEN Ordering Facility: [facility] Address: [address] [place] [address] Performed By: #### 2 4331-1 #### [facility] CLIA [id number] [address] [place] [address] [place] [facility] [id number] [address] [place] [address] [place] #### 57312-8 #### [facility] CLIA [id number] [address] [place] [address] [place] Lymphocytes/100 WBC (Bld) 20.6 % Normal [facility] Comment on above: Order Comment: Speci men Type: BLOOD SPECIMEN Ordering Facility: [facility] Address: [address] [place] [address] Performed By: #### 2 4331-1 #### [facility] CLIA [id number] [address] [place] [address] [place] [facility] [id number] [address] [place] [address] [place] #### 24629-8 #### [facility] CLIA [id number] [address] [place] [address] [place] MCH (RBC) [Entitic mass] 31.6 pg Normal 26.0-34.0 [facility] Comment on above: Order Comment: Speci men Type: BLOOD SPECIMEN Ordering Facility: [facility] Address: [address] [id number] Performed By: #### 2 4331-1 #### [facility] CLIA [id number] [facility] [place] [address] [place] [facility] CLIA [id number] [address] [place] [address] [place] #### 04700-5 #### [facility] CLIA [id number] [address] [place] [address] [place] MCHC (RBC) [Mass/Vol] 33.1 g/dL Normal 30.5-36.0 [facility] Comment on above: Order Comment: Speci men Type: BLOOD SPECIMEN Ordering Facility: [facility] Address: [address] [place] [address] Performed By: #### 2 4331-1 #### [facility] CLIA [id number] [address] [place] [address] [place] [facility] CLIA [id number] [address] [place] [address] [place] #### 54546-2 #### [facility] CLIA [id number] [address] [place] [address] [place] MCV (RBC) [Entitic vol] 95.6 fL Normal 80.0-100.0 [facility] Comment on above: Order Comment: Speci men Type: BLOOD SPECIMEN Ordering Facility: [facility] Address: [address] [id number] Performed By: #### 2 4331-1 #### [facility] CLIA [id number] [address] [place] [address] [place] [facility] CLIA [id number] [address] [place] [address] [place] #### 29047-7 #### [facility] CLIA [id number] [address] [id number] [place] Monocytes (Bld) [#/Vol] 0.82 10*3/uL Normal <0.87 [facility] Comment on above: Order Comment: Speci men Type: BLOOD SPECIMEN Ordering Facility: [facility] Address: [address] [place], [place] [address] Performed By: #### 2 4331-1 #### [facility] CLIA [id number] [address] [place] [address] [place] [facility] CLIA [id number] [place] [address] [place] #### 79528-2 #### [facility] CLIA [id number] [address] [place] [address] [place] Monocytes/100 WBC (Bld) 13.1 % Normal [facility] Comment on above: Order Comment: Speci men Type: BLOOD SPECIMEN Ordering Facility: [facility] Address: [address] [place], [place] [address] Performed By: #### 2 4331-1 #### [facility] CLIA [id number] [address] [place] [address] [place] [facility] [id number] [address] [place] [address] [place] #### 05134-0 #### [facility] CLIA [id number] [address] [place], [place] [address] [place] Neutrophils (Bld) [#/Vol] 3.92 10*3/uL Normal 1.45-7.50 [facility] Comment on above: Order Comment: Speci men Type: BLOOD SPECIMEN Ordering Facility: [facility] Address: [address] [place], [place] [address] Performed By: #### 2 4331-1 #### [facility] CLIA [id number] [address] [place], [place] [address] [place] [facility] CLIA [id number] [address] [place] [address] [place] #### 85968-7 #### [facility] CLIA [id number] [address] [place] [address] [place] Neutrophils/100 WBC (Bld) 62.6 % Normal [facility] Comment on above: Order Comment: Speci men Type: BLOOD SPECIMEN Ordering Facility: [facility] Address: [address] [place] [address] Performed By: #### 2 4331-1 #### [facility] CLIA [id number] [address] [place] [address] [place] [facility] [id number] [place] [address] [place] #### 15653-3 #### [facility] CLIA [id number] [address] [place] [address] [place] Nucleated RBC (Bld) [#/Vol] 10*3/uL Normal <0.01 [facility] Comment on above: Order Comment: Speci men Type: BLOOD SPECIMEN Ordering Facility: [facility] Address: [address] [place] [address] Performed By: #### 2 4331-1 #### [facility] CLIA [id number] [address] [place] [address] [place] [facility] CLIA [id number] [address] [place] [address] [place] #### 25251-2 #### [facility] CLIA [id number] [address] [place] [address] [place] Nucleated RBC/100 WBC (Bld) [Ratio] 0.0 /100 WBC Normal [facility] Comment on above: Order Comment: Speci men Type: BLOOD SPECIMEN Ordering Facility: [facility] Address: [address] [place] [address] Performed By: #### 2 4331-1 #### [facility] CLIA [id number] [address] [place] [address] [place] [facility] CLIA [id number] [address] [place] [address] [place] #### 64917-8 #### [facility] CLIA [id number] [address] [place] [address] [place] Platelet mean volume (Bld) [Entitic vol] 9.5 fL Normal 9.0-12.7 [facility] Comment on above: Order Comment: Speci men Type: BLOOD SPECIMEN Ordering Facility: [facility] Address: [address] [place] [address] Performed By: #### 2 4331-1 #### [facility] CLIA [id number] [address] [place] [address] [place] [facility] CLIA [id number] [address] [place] [address] [place] #### 31732-5 #### [facility] CLIA [id number] [address] [place] [address] [place] Platelets (Bld) [#/Vol] 202 10*3/uL Normal 150-400 [facility] Comment on above: Order Comment: Speci men Type: BLOOD SPECIMEN Ordering Facility: [facility] Address: [address] [place] [address] Performed By: #### 2 4331-1 #### [facility] CLIA [id number] [address] [place] [address] [place] [facility] CLIA [id number] [address] [place] [address] [place] #### 26343-8 #### [facility] CLIA [id number] [address] [place] [address] [place] RBC (Bld) [#/Vol] 2.75 10*6/uL Low 3.90-5.20 [facility] Comment on above: Order Comment: Speci men Type: BLOOD SPECIMEN Ordering Facility: [facility] Address: [address] [place] [address] Performed By: #### 2 4331-1 #### [facility] CLIA [id number] [address] [place] [address] [place] [facility] [id number] [address] [place] [address] [place] #### 89969-8 #### [facility] CLIA [id number] [address] [place] [address] [place] WBC (Bld) [#/Vol] 6.26 10*3/uL Normal 3.70-11.00 [facility] Comment on above: Order Comment: Speci men Type: BLOOD SPECIMEN Ordering Facility: [facility] Address: [address] [place] [address] Performed By: #### 2 4331-1 #### [facility] CLIA [id number] [address] [place] [address] [place] [facility] CLIA [id number] [address] [place] [address] [place] #### 76925-0 #### [facility] CLIA [id number] [address] [place] [address] [place] CNOVon 10-31-2024 CNOV Office Visit (FAMPWS ) BERTA SANCHES ([id number]) 1945 F [place] Date Time Provider Department 10/31/24 11:00 AM SHAYE DOMINGO During your visit today, we recorded the following information about you: Pulse Blood pressure Weight 84/minute 147/68 64.4 kg Shaye Domingo, FACS TEACHER.TWISTHAND 10/31/2024 12:52 PM Signed Chief Complaint Patient presents with: Hospital F/U [facility] Berta Sanches is a 79 year old female who presents here today for Above Complaints.. Acute Mesenteric Ischemia: - Initially admitted to [facility] on 10/02/2024. - Underwent femoral ultrasound-guided angiogram with angioplasty and stenting of the SMA. - Required CRRT for MONIQUE post-op. - Developed AFib with RVR post-op. - Discharged after 23-day hospitalization. Acute on Chronic Heart Failure: - Given IV Lasix during initial admission. 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 Lua PACEMAKER 10/2019 PART. HYSTERECTOMY W/WO RMVL OVARIES/TUBES 1973 h/o cervical cancer ovaries remain PAST SURGICAL HISTORY OF 1996 Aortic valve repair, Dr. Apodaca PAST SURGICAL HISTORY OF 2001 [address] Beltrán, [facility] PAST SURGICAL HISTORY OF 2016 clipping [...] mcg epi (more content not included)... Normal [facility] metabolic 2000 panelOrdered By: Shala Segura on 10-31-2024 Albumin [Mass/Vol] 4 g/dL 3.9 - 4.9 g/dL [facility] ALP [Catalytic activity/Vol] 81 U/L 34 - 123 U/L [facility] ALT [Catalytic activity/Vol] 10 U/L 7 - 38 U/L [facility] Anion gap [Moles/Vol] 11 mmol/L 8 - 15 mmol/L [facility] AST [Catalytic activity/Vol] 19 U/L 13 - 35 U/L [facility] Bilirubin [Mass/Vol] 1 mg/dL 0.2 - 1 .3 mg/dL [facility] Calcium [Mass/Vol] 9.3 mg/dL 8.5 - 10. 2 mg/dL [facility] Chloride [Moles/Vol] 83 mmol/L Low 98 - 10 7 mmol/L [facility] CO2 [Moles/Vol] 29 mmol/L 22 - 30 mmol/L [facility] Creatinine [Mass/Vol] 2.5 mg/dL High 0.58 - 0.96 mg/dL [facility] GFR/1.73 sq M.predicted among non-blacks MDRD (S/P/Bld) [Vol rate/Area] 19 mL/min/{1.73_m2} Low - PINF [facility] Comment on above: Estimated Glomerular Filtration Rate [...] 138 mg/dL High 74 - 99 mg/dL [facility] Comment on above: The [place] Diabete s Association (ADA) provides guidance for [...] Standards of Medical Care in Diabetes 2016, [place] Diabetes Association. Diabetes Care. 2016.39(Suppl 1). Interpretation and review of laboratory results Abnormal [facility] Potassium [Moles/Vol] 3.8 mmol/L 3.7 - 5.1 mmol/L [facility] Protein [Mass/Vol] 7 g/dL 6.3 - 8.0 g/dL [facility] Sodium [Moles/Vol] 123 mmol/L Low 136 - 144 mmol/L [facility] Urea nitrogen [Mass/Vol] 53 mg/dL High 7 - 21 mg/dL [facility] Comprehensive metabolic 2000 panelon 10-31-2024 Albumin [Mass/Vol] 4.0 g/dL Normal 3.9-4.9 [facility] Comment on above: Order Comment: Annie ricci Type: BLOOD SPECIMEN Ordering Facility: [facility] Address: [address] [place] [address] Performed By: #### 3 3762-6 #### [facility] CLIA [id number] [address] [place] [address] [place] ALP [Catalytic activity/Vol] 81 U/L Normal 34-123 [facility] Comment on above: Order Comment: Kunali men Type: BLOOD SPECIMEN Ordering Facility: [facility] Address: [address] [place] [address] Performed By: #### 3 3762-6 #### [facility] CLIA [id number] [address] [place] [address] [place] ALT [Catalytic activity/Vol] 10 U/L Normal 7-38 [facility] Comment on above: Order Comment: Speci men Type: BLOOD SPECIMEN Ordering Facility: [facility] Address: [address] [place], [place] [address] Performed By: #### 3 3762-6 #### [facility] CLIA [id number] [address] [place], [place] [address] [place] Anion gap [Moles/Vol] 11 mmol/L Normal 8-15 [facility] Comment on above: Order Comment: Speci men Type: BLOOD SPECIMEN Ordering Facility: [facility] Address: [address] [place] [address] Performed By: #### 3 3762-6 #### [facility] CLIA [id number] [address] [place] [address] [place] AST [Catalytic activity/Vol] 19 U/L Normal 13-35 [facility] Comment on above: Order Comment: Speci men Type: BLOOD SPECIMEN Ordering Facility: [facility] Address: [address] [place], [place] [address] Performed By: #### 3 3762-6 #### [facility] CLIA [id number] [address] [place], [place] [address] [place] Bilirubin [Mass/Vol] 1.0 mg/dL Normal 0.2-1.3 [facility] Comment on above: Order Comment: Speci men Type: BLOOD SPECIMEN Ordering Facility: [facility] Address: [address] [place], [place] [address] Performed By: #### 3 3762-6 #### [facility] CLIA [id number] [address] [place], [place] [address] [place] Calcium [Mass/Vol] 9.3 mg/dL Normal 8.5-10.2 [facility] Comment on above: Order Comment: Speci men Type: BLOOD SPECIMEN Ordering Facility: [facility] Address: [address] [place] [address] Performed By: #### 3 3762-6 #### [facility] CLIA [id number] [address] [place] [address] [place] Chloride [Moles/Vol] 83 mmol/L Low 98-107 [facility] Comment on above: Order Comment: Speci men Type: BLOOD SPECIMEN Ordering Facility: [facility] Address: [address] [place] [address] Performed By: #### 3 3762-6 #### [facility] CLIA [id number] [address] [place] [address] [place] CO2 [Moles/Vol] 29 mmol/L Normal 22-30 [facility] Comment on above: Order Comment: Speci men Type: BLOOD SPECIMEN Ordering Facility: [facility] Address: [address] [place] [address] Performed By: #### 3 3762-6 #### [facility] CLIA [id number] [address] [place] [address] [place] Creatinine [Mass/Vol] 2.50 mg/dL High 0.58-0.96 [facility] Comment on above: Order Comment: Speci men Type: BLOOD SPECIMEN Ordering Facility: [facility] Address: [address] [place] [address] Performed By: #### 3 3762-6 #### [facility] CLIA [id number] [address] [place] [address] [place] Creatinine and Glomerular filtration rate.predicted panel (S/P/Bld) 19 mL/min/1.73m??? Low >=60 [facility] Comment on above: Order Comment: Speci men Type: BLOOD SPECIMEN Ordering Facility: [facility] Address: [address] [place] [address] Result Comment: Mira mated Glomerular Filtration Rate [...] By: #### 3 3762-6 #### [facility] CLIA [id number] [address] [place] [address] [place] Glucose [Mass/Vol] 138 mg/dL High 74-99 [facility] Comment on above: Order Comment: Annie ricci Type: BLOOD SPECIMEN Ordering Facility: [facility] Address: [address] [place] [address] Result Comment: The [place] Diabetes Association (ADA) provides guidance for cutoff [...] Standards of Medical Care in Diabetes 2016, [place] Diabetes Association. Diabetes Care. 2016.39(Suppl 1). Performed By: #### 3 3762-6 #### [facility] CLIA [id number] [address] [place] [address] [place] Potassium [Moles/Vol] 3.8 mmol/L Normal 3.7-5.1 [facility] Comment on above: Order Comment: Annie ricci Type: BLOOD SPECIMEN Ordering Facility: [facility] Address: [address] [place] [address] Performed By: #### 3 3762-6 #### [facility] CLIA [id number] [address] [place], [place] [address] [place] Protein [Mass/Vol] 7.0 g/dL Normal 6.3-8.0 [facility] Comment on above: Order Comment: Speci men Type: BLOOD SPECIMEN Ordering Facility: [facility] Address: [address] [place], [place] [address] Performed By: #### 3 3762-6 #### [facility] CLIA [id number] [address] [place], [place] [address] [place] Sodium [Moles/Vol] 123 mmol/L Low 136-144 [facility] Comment on above: Order Comment: Speci men Type: BLOOD SPECIMEN Ordering Facility: [facility] Address: [address] [place], [place] [address] Performed By: #### 3 3762-6 #### [facility] CLIA [id number] [address] [place], [place] [address] [place] Urea nitrogen [Mass/Vol] 53 mg/dL High 7-21 [facility] Comment on above: Order Comment: Speci men Type: BLOOD SPECIMEN Ordering Facility: [facility] Address: [address] [place], [place] [address] Performed By: #### 3 3762-6 #### [facility] CLIA [id number] [address] [place], [place] [address] [place] MAGNESIUMon 10-31-2024 Magnesium [Mass/Vol] 2 mg/dL 1.7 - 2 .3 mg/dL [facility] Magnesium SerPl-mCncon 10-31 Magnesium [Mass/Vol] 2.0 mg/dL Normal 1.7-2.3 [facility] Comment on above: Order Comment: Speci men Type: BLOOD SPECIMEN Ordering Facility: [facility] Address: [address] [place], [place] [address] Performed By: #### 2 4331-1 #### [facility] CLIA [id number] [address] [address] [place] [facility] CLIA [id number] [address] [place] [address] [place] #### 73317-1 #### [facility] CLIA [id number] [address] [place] [address] [place] Magnesium [Mass/Vol]on 10-31 Interpretation and review of laboratory results Normal [facility] No Panel InformationOrdered By: Shala Segura on 10-31-2024 [facility] Connie 10-12-2024 [facility] Telephone ([facility]) BERTA SANCHES ([id number]) 1945 F [facility] Date Time Provider Department 10/12/24 ALBIN GU [facility] During your visit today, we recorded the following information about you: Albin Gu APRN.CNP 10/12/2024 12:36 PM Signed Patient called to schedule appt in [facility]. Patient also mentions she is currently in [place]. 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 [facility] BERTA SANCHES ([id number]) 1945 F [place] Date Time Provider Department 07/31/24 MELIDA KOO [facility] During your visit today, we recorded the following information about you: Melida Koo APRN.TWISTHAND 07/31/2024 12:00 PM Signed Pt called to request refill for KDur as she has run out of prescription. She states that she is currently in [place] and will be in [place] until October. [facility] called in [place], [place]. Spoke with Pharmacist on duty. Rx for KDur 10 meq PO daily given verbally #90 with no refills. 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 Normal [facility] 25(OH)D3 [facility] 25-hydroxyvitamin D3 [Mass/Vol] 41.9 ng/mL Normal 31.0-80.0 [facility] Comment on above: Order Comment: Speci men Type: BLOOD SPECIMEN Ordering Facility: [facility] Address: [address] [place] [address] Result Comment: Clas sification of 25 [place] Vitamin D status: Deficiency/Insufficiency: < or = 30 ng/ml. Sufficiency/Optimal Levels: 31-80 ng/mL Toxicity: > 100 ng/mL. Test performed by chemiluminescent immunoassay. Performed By: #### 2 4331-1 #### [facility] CLIA [id number] [address] [place] [address] [place] [id number] [place] [address] [place] #### 70136-5 #### [facility] CLIA [id number] [address] [place] [address] [place] ALBUMIN/CREATININE RATIO, INEon 07-07-2024 Albumin DL <= 20 mg/L (U) [Mass/Vol] 21.0 mg/L Normal [facility] Comment on above: Order Comment: Speci men Type: BLOOD SPECIMEN Ordering Facility: [facility] Address: [address] [place] [address] Performed By: #### 2 4331-1 #### [facility] CLIA [id number] [address] [place] [address] [place] [facility] CLIA [id number] [place] [address] [place] #### 79018-9 #### [facility] CLIA [id number] [address] [place] [address] [place] Albumin/Creatinine (U) [Mass ratio] 34 mg/g High <30 [facility] Comment on above: Order Comment: Speci men Type: BLOOD SPECIMEN Ordering Facility: [facility] Address: [address] [place] [address] Result Comment: Adul t Male and Female Nephrotic Criteria: <30 mg/g is considered normal to mildly increased 30-300 mg/g is considered moderately increased >300 mg/g is considered severely increased KDIGO. (2013). KDIGO 2012 Clinical Practice Guideline for the Evaluation and Management of Chronic Kidney Disease. Official Journal of the International Society of Nephrology, 3(1), 1-150. Performed By: #### 2 4331-1 #### [facility] CLIA [id number] [address] [place] [address] [place] [facility] [id number] [address] [place] [address] [place] #### 44461-2 #### [facility] CLIA [id number] [address] [place] [address] [place] Creatinine (U) [Mass/Vol] 61.6 mg/dL Normal 20.0-300.0 [facility] Comment on above: Order Comment: Speci men Type: BLOOD SPECIMEN Ordering Facility: [facility] Address: [address] [place] [address] Performed By: #### 2 4331-1 #### [facility] CLIA [id number] [address] [place] [address] [place] [facility] [id number] [address] [place] [address] [place] #### 25487-0 #### [facility] CLIA [id number] [address] [place] [address] [place] Basic metabolic 2000 panelon 07-07-2024 Anion gap [Moles/Vol] 13 mmol/L Normal 8-15 [facility] Comment on above: Order Comment: Speci men Type: BLOOD SPECIMEN Ordering Facility: [facility] Address: [address] [place], [place] [address] Performed By: #### 3 3762-6 #### [facility] CLIA [id number] [address] [place], [place] [address] [place] Calcium [Mass/Vol] 9.8 mg/dL Normal 8.5-10.2 [facility] Comment on above: Order Comment: Speci men Type: BLOOD SPECIMEN Ordering Facility: [facility] Address: [address] [place] [address] Performed By: #### 3 3762-6 #### [facility] CLIA [id number] [address] [place] [address] [place] Chloride [Moles/Vol] 100 mmol/L Normal 98-107 [facility] Comment on above: Order Comment: Speci men Type: BLOOD SPECIMEN Ordering Facility: [facility] Address: [address] [place] [address] Performed By: #### 3 3762-6 #### [facility] CLIA [id number] [address] [place] [address] [place] CO2 [Moles/Vol] 25 mmol/L Normal 22-30 [facility] Comment on above: Order Comment: Speci men Type: BLOOD SPECIMEN Ordering Facility: [facility] Address: [address] [place], [place] [address] Performed By: #### 3 3762-6 #### [facility] CLIA [id number] [address] [place], [place] [address] [place] Creatinine [Mass/Vol] 1.12 mg/dL High 0.58-0.96 [facility] Comment on above: Order Comment: Speci men Type: BLOOD SPECIMEN Ordering Facility: [facility] Address: [address] [place], [place] [address] Performed By: #### 3 3762-6 #### [facility] CLIA [id number] [address] [place] [address] [place] Creatinine and Glomerular filtration rate.predicted panel (S/P/Bld) 50 mL/min/1.73m??? Low >=60 [facility] Comment on above: Order Comment: Annie ricci Type: BLOOD SPECIMEN Ordering Facility: [facility] Address: [address] [place] [address] Result Comment: Mira mated Glomerular Filtration Rate [...] By: #### 3 3762-6 #### [facility] CLIA [id number] [address] [place] [address] [place] Glucose [Mass/Vol] 118 mg/dL High 74-99 [facility] Comment on above: Order Comment: Annie ricci Type: BLOOD SPECIMEN Ordering Facility: [facility] Address: [address] [place] [address] Result Comment: The [place] Diabetes Association (ADA) provides guidance for cutoff [...] Standards of Medical Care in Diabetes 2016, [place] [employer]. Diabetes Care. 2016.39(Suppl 1). Performed By: #### 3 3762-6 #### [facility] CLIA [id number] [address] [place] [address] [place] Potassium [Moles/Vol] 4.4 mmol/L Normal 3.7-5.1 [facility] Comment on above: Order Comment: Speci men Type: BLOOD SPECIMEN Ordering Facility: [facility] Address: [address] [place] [address] Performed By: #### 3 3762-6 #### [facility] CLIA [id number] [address] [place] [address] [place] Sodium [Moles/Vol] 138 mmol/L Normal 136-144 [facility] Comment on above: Order Comment: Speci men Type: BLOOD SPECIMEN Ordering Facility: [facility] Address: [address] [place] [address] Performed By: #### 3 3762-6 #### [facility] CLIA [id number] [address] [place] [address] [place] Urea nitrogen [Mass/Vol] 34 mg/dL High 7-21 [facility] Comment on above: Order Comment: Speci men Type: BLOOD SPECIMEN Ordering Facility: [facility] Address: [address] [place] [address] Performed By: #### 3 3762-6 #### [facility] CLIA [id number] [address] [place] [address] [place] CNOVon 07-07-2024 CNOV Office Visit ([facility] ) BERTA SANCHES ([id number]) 1945 F [facility] Date Time Provider Department 07/07/24 8:00 AM DEYSI COLLAZO During your visit today, we recorded the following information about you: Pulse Respiration Blood pressure Weight 69/minute 16/minute 136/70 63.5 kg Deysi Collazo APRN.TWISTHAND 07/07/2024 12:41 PM Signed This is a 78 year old female who presents today with: Patient presents with: Establish Care HISTORY OF PRESENT ILLNESS: Berta Sanches is a 78 year old female. Patient presents with: Establish Care Pt presents today to [facility]. HTN: Patient is compliant with meds Yes. 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 Lua PACEMAKER 10/2019 PART. HYSTERECTOMY W/WO RMVL OVARIES/TUBES 1973 h/o cervical cancer ovaries remain PAST SURGICAL HISTORY OF 1996 Aortic valve repair, Dr. Apodaca PAST SURGICAL HISTORY OF 2001 [address] Beltrán, [facility] PAST SURGICAL HISTORY OF 2015 clipping [...] once daily. (more content not included)... Normal [facility] HbA1c (Bld)on 07-07-2024 Average glucose Estimated from glycated hemoglobin (Bld) [Mass/Vol] 151 mg/dL Normal [facility] Comment on above: Order Comment: Annie ricci Type: BLOOD SPECIMEN Ordering Facility: [facility] Address: [address] [place] [address] Result Comment: eAG: (Estimated average glucose) is a calculated value from HgbA1c and is customer support representative of the average blood glucose level in the last 2-3 month period. Performed By: #### 3 3762-6 #### [facility] CLIA [id number] [address] [place] [address] [place] HbA1c (Bld) [Mass fraction] 6.9 % High 4.3-5.6 [facility] Comment on above: Order Comment: Annie ricci Type: BLOOD SPECIMEN Ordering Facility: [facility] Address: [address] [place] [address] Result Comment: [place] Diabetes Association guidelines indicate that patients with HgbA1c in the range 5.7-6.4% are at increased risk for development of diabetes, and intervention by lifestyle modification may be beneficial. HgbA1c greater or equal to 6.5% is considered diagnostic of diabetes. Performed By: #### 3 3762-6 #### [facility] CLIA [id number] [address] [place] [address] [place] TSH SerPl-aCncon 07-07-2024 TSH Qn 2.650 m[IU]/L Normal 0.270-4.200 [facility] Comment on above: Order Comment: Annie ricci Type: BLOOD SPECIMEN Ordering Facility: [facility] Address: [address] [place] [address] Performed By: #### 3 3762-6 #### [facility] CLIA [id number] [address] [place] [address] [place] CNOVon 04-07-2024 CN Office Visit ([facility] ) BERTA SANCHES ([id number]) 1945 [facility] Date Time Provider Department 04/07/24 9:00 AM ALBIN GU [facility] During your visit today, we recorded the following information about you: Pulse Blood pressure Weight 91/minute 142/47 62.1 kg Albin Gu APRN.TWISTHAND 04/07/2024 9:57 AM Signed [facility] [place] [facility] OUTPATIENT VISIT [...] a boat and take it out on [place] to fish. IMPRESSION: NYHA Functional Class: II [...] moderate car (more content not included)... Normal [facility] BERTA SANCHES ([id number]) 1945 F [facility] Date Time Provider Department 02/21/24 MELIDA KOO [facility] During your visit today, we [...] understanding of plan of care. 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 Normal [facility] NT-proBNP [facility] 02-14 Natriuretic peptide.B prohormone N-Terminal [Mass/Vol] 5922 pg/mL High <450 [facility] Comment on above: Order Comment: Speci men Type: BLOOD SPECIMEN Ordering Facility: [facility] Address: [address] [place] [address] Performed By: #### 3 3762-6 #### [facility] CLIA [id number] [address] [place] [address] [place] OF [facility] CNPNon 02-07-2024 [facility] Telephone ([facility]) BERTA SANCHES ([id number]) 1945 [facility] Date Time Provider Department 02/07/24 MELIDA KOO [facility] During your visit today, we recorded the following information about you: Melida Koo APRN.TWISTHAND 02/07/2024 8:28 AM Signed Pt called and left message on voicemail stating that she was feeling much better since following instructions that Albin Gu had given her. She reported that SOB and edema was improved. She has concerns about NTpBNP and when she should have that rechecked. Called patient and she did not answer. Message left for call back. 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 [facility] 02-04-2024 [facility] Telephone ([facility]) BERTA SANCHES ([id number]) 1945 F [facility] Date Time Provider Department 02/04/24 MARIBELL KING During your visit today, we recorded the following information about you: Ying Fuentes LPN 02/04/2024 2:12 PM Signed ----- Message from Maribell King APRN.TWISTHAND sent at 02/04/2024 2:02 PM EDT ----- [...] [N18.9] Order(s):BASIC METABOLIC PANEL [SQBMP] Order #: [id number] FUTURE Prescriptions as of 02/07/2024 - furosemide [...] 02/26/2014 03/21/2022 Intracranial aneurysm [I67.1] 08/30/2015 10/05/2022 detention current use of antiarrhythmic medical*10/20/2016 09/12/2021 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 [facility] BERTA SANCHES ([id number]) 1945 F [facility] Date Time Provider Department 02/04/24 ALBIN GU [facility] During your visit today, we [...] 02/26/2014 03/21/2022 Intracranial aneurysm [I67.1] 08/30/2015 10/05/2022 detention current use of antiarrhythmic medical*10/20/2016 09/12/2021 Prosthetic [...] blood loss (more content not included)... Normal [facility] Comprehensive metabolic 2000 panelon 02-03-2024 Albumin [Mass/Vol] 4.0 g/dL Normal 3.9-4.9 [facility] Comment on above: Order Comment: Speci men Type: BLOOD SPECIMEN Ordering Facility: [facility] Address: [address] [place] [address] Performed By: #### 3 3762-6 #### [facility] CLIA [id number] [address] [place] [address] [place] ALP [Catalytic activity/Vol] 102 U/L Normal 34-123 [facility] Comment on above: Order Comment: Speci men Type: BLOOD SPECIMEN Ordering Facility: [facility] Address: [address] [place] [address] Performed By: #### 3 3762-6 #### [facility] CLIA [id number] [address] [place] [address] [place] ALT [Catalytic activity/Vol] 10 U/L Normal 7-38 [facility] Comment on above: Order Comment: Speci men Type: BLOOD SPECIMEN Ordering Facility: [facility] Address: [address] [place] [address] Performed By: #### 3 3762-6 #### [facility] CLIA [id number] [address] [place], [place] [address] [place] Anion gap [Moles/Vol] 11 mmol/L Normal 8-15 [facility] Comment on above: Order Comment: Speci men Type: BLOOD SPECIMEN Ordering Facility: [facility] Address: [address] [place] [address] Performed By: #### 3 3762-6 #### [facility] CLIA [id number] [address] [place], [place] [address] [place] AST [Catalytic activity/Vol] 16 U/L Normal 13-35 [facility] Comment on above: Order Comment: Speci men Type: BLOOD SPECIMEN Ordering Facility: [facility] Address: [address] [place] [address] Performed By: #### 3 3762-6 #### [facility] CLIA [id number] [address] [place] [address] [place] Bilirubin [Mass/Vol] 1.1 mg/dL Normal 0.2-1.3 [facility] Comment on above: Order Comment: Speci men Type: BLOOD SPECIMEN Ordering Facility: [facility] Address: [address] [place] [address] Performed By: #### 3 3762-6 #### [facility] CLIA [id number] [address] [place] [address] [place] Calcium [Mass/Vol] 9.5 mg/dL Normal 8.5-10.2 [facility] Comment on above: Order Comment: Speci men Type: BLOOD SPECIMEN Ordering Facility: [facility] Address: [address] [place] [address] Performed By: #### 3 3762-6 #### [facility] CLIA [id number] [address] [place] [address] [place] Chloride [Moles/Vol] 98 mmol/L Normal 98-107 [facility] Comment on above: Order Comment: Speci men Type: BLOOD SPECIMEN Ordering Facility: [facility] Address: [address] [place], [place] [address] Performed By: #### 3 3762-6 #### [facility] CLIA [id number] [address] [place] [address] [place] CO2 [Moles/Vol] 22 mmol/L Normal 22-30 [facility] Comment on above: Order Comment: Speci men Type: BLOOD SPECIMEN Ordering Facility: [facility] Address: [address] [place] [address] Performed By: #### 3 3762-6 #### [facility] CLIA [id number] [address] [place] [address] [place] Creatinine [Mass/Vol] 1.28 mg/dL High 0.58-0.96 [facility] Comment on above: Order Comment: Speci men Type: BLOOD SPECIMEN Ordering Facility: [facility] Address: [address] [place] [address] Performed By: #### 3 3762-6 #### [facility] CLIA [id number] [address] [place] [address] [place] Creatinine and Glomerular filtration rate.predicted panel (S/P/Bld) 43 mL/min/1.73m??? Low >=60 [facility] Comment on above: Order Comment: Annie men Type: BLOOD SPECIMEN Ordering Facility: [facility] Address: [address] [place] [address] Result Comment: Mira mated Glomerular Filtration Rate [...] By: #### 3 3762-6 #### [facility] CLIA [id number] [address] [place] [address] [place] Glucose [Mass/Vol] 147 mg/dL High 74-99 [facility] Comment on above: Order Comment: Kunali men Type: BLOOD SPECIMEN Ordering Facility: [facility] Address: [address] [place] [address] Result Comment: The [place] Diabetes Association (ADA) provides guidance for cutoff [...] Standards of Medical Care in Diabetes 2016, [place] [employer]. Diabetes Care. 2016.39(Suppl 1). Performed By: #### 3 3762-6 #### [facility] CLIA [id number] [address] [place] [address] [place] Potassium [Moles/Vol] 4.8 mmol/L Normal 3.7-5.1 [facility] Comment on above: Order Comment: Annie ricci Type: BLOOD SPECIMEN Ordering Facility: [facility] Address: [address] [place] [address] Performed By: #### 3 3762-6 #### [facility] CLIA [id number] [address] [place] [address] [place] Protein [Mass/Vol] 7.2 g/dL Normal 6.3-8.0 [facility] Comment on above: Order Comment: Annie ricci Type: BLOOD SPECIMEN Ordering Facility: [facility] Address: [address] [place] [address] Performed By: #### 3 3762-6 #### [facility] CLIA [id number] [address] [place] [address] [place] Sodium [Moles/Vol] 131 mmol/L Low 136-144 [facility] Comment on above: Order Comment: Kunali men Type: BLOOD SPECIMEN Ordering Facility: [facility] Address: [address] [place] [address] Performed By: #### 3 3762-6 #### [facility] CLIA [id number] [address] [place] [address] [place] Urea nitrogen [Mass/Vol] 34 mg/dL High 7-21 [facility] Comment on above: Order Comment: Speci men Type: BLOOD SPECIMEN Ordering Facility: [facility] Address: [address] [place] [address] Performed By: #### 3 3762-6 #### [facility] CLIA [id number] [address] [place] [address] [place] Lipid 1996 panelon 4 Cholesterol [Mass/Vol] 98 mg/dL Normal <200 [facility] Comment on above: Order Comment: Speci men Type: BLOOD SPECIMEN Ordering Facility: [facility] Address: [address] [place] [address] Result Comment: <200 mg/dL, Desirable 200-239 mg/dL, Borderline high >239 mg/dL, High Performed By: #### 2 4331-1 #### [facility] CLIA [id number] [address] [place] [address] [place] [facility] CLIA [id number] [address] [place] [address] [place] #### 90814-6 #### [facility] CLIA [id number] [address] [place] [address] [place] Cholesterol in HDL [Mass/Vol] 34 mg/dL Low >39 [facility] Comment on above: Order Comment: Speci men Type: BLOOD SPECIMEN Ordering Facility: [facility] Address: [address] [place] [address] Result Comment: 40-5 9 mg/dL, Acceptable >59 mg/dL, High: Negative risk factor for coronary heart disease <40 mg/dL, Low: Positive risk factor for coronary heart disease Performed By: #### 2 4331-1 #### [facility] CLIA [id number] [address] [place] [address] [place] [facility] CLIA [id number] [address] [place] [address] [place] #### 29518-3 #### [facility] CLIA [id number] [address] [place] [address] [facility] Cholesterol in LDL [Mass/Vol] 51 mg/dL Normal <100 [facility] Comment on above: Order Comment: Speci men Type: BLOOD SPECIMEN Ordering Facility: [facility] Address: [address] [place] [address] Result Comment: <100 mg/dL, Optimal 100-129 mg/dL, Near optimal/above optimal 130-159 mg/dL, Borderline high 160-189 mg/dL, High >189 mg/dL, Very high Secondary prevention optimal LDL Cholesterol levels are recommended to be < 70 mg/dL Performed By: #### 2 4331-1 #### [facility] CLIA [id number] [address] [place] [address] [place] [facility] CLIA [id number] [address] [place] [address] OF [place] #### 50654-6 #### [facility] CLIA [id number] [address] [place] [address] [place] Cholesterol in LDL/Cholesterol in HDL [Mass ratio] 1.50 {ratio} Normal <2.54 [facility] Comment on above: Order Comment: Speci men Type: BLOOD SPECIMEN Ordering Facility: [facility] Address: [address] [place] [address] Result Comment: Hussein phillips: 1. National Cholesterol Education Program ATP III Guideline At-A-Glance Quick Desk Reference: National Heart, Lung, and Blood [place]. National Institutes of Health. 2001: NIH Publication No. 01-3305. 2. An International Atherosclerosis Society position paper: global recommendations for the management of dyslipidemia: executive summary, Atherosclerosis. 2014: 232(2):410-413. Performed By: #### 2 4331-1 #### [facility] CLIA [id number] [address] [place] [address] [place] [facility] CLIA [id number] [address] [place] [address] [place] #### 55206-8 #### [facility] CLIA [id number] [address] [place] [address] [place] Cholesterol in VLDL [Mass/Vol] 13 mg/dL Normal <30 [facility] Comment on above: Order Comment: Speci men Type: BLOOD SPECIMEN Ordering Facility: [facility] Address: [address] [place], [place] [address] Performed By: #### 2 4331-1 #### [facility] CLIA [id number] [address] [place] [address] [place] [facility] CLIA [id number] [address] [place] [address] [place] #### 69767-6 #### [facility] CLIA [id number] [address] [place] [address] [place] Cholesterol non HDL [Mass/Vol] 64 mg/dL Normal <130 [facility] Comment on above: Order Comment: Speci men Type: BLOOD SPECIMEN Ordering Facility: [facility] Address: [address] [place], [place] [address] Result Comment: <130 mg/dL, Optimal 130-159 mg/dL, Near optimal/above optimal 160-189 mg/dL, Borderline high 190-219 mg/dL, High >219 mg/dL, Very high Secondary prevention optimal non HDL Cholesterol levels are recommended to be <100 mg/dL Performed By: #### 2 4331-1 #### [facility] CLIA [id number] [address] [place], [place] [address] [place] [facility] CLIA [id number] [address] [place] [address] [place] #### 82948-3 #### [facility] CLIA [id number] [address] [place] [address] [place] Cholesterol.total/Gin sterol in HDL [Mass ratio] 2.88 {ratio} Normal <5.10 [facility] Comment on above: Order Comment: Speci men Type: BLOOD SPECIMEN Ordering Facility: [facility] Address: [address] [place] [address] Performed By: #### 2 4331-1 #### [facility] CLIA [id number] [address] [place] [address] [place] [facility] CLIA [id number] [address] [place] [address] [place] #### 60573-2 #### [facility] CLIA [id number] [address] [place] [address] [place] FASTING TIME 12 hrs Normal [facility] Comment on above: Order Comment: Speci men Type: BLOOD SPECIMEN Ordering Facility: [facility] Address: [address] [place], [place] [address] Performed By: #### 2 4331-1 #### [facility] CLIA [id number] [address] [place] [address] [place] [facility] [id number] [address] [place] [address] [place] #### 92575-8 #### [facility] CLIA [id number] [address] [place] [address] [place] Triglyceride [Mass/Vol] 67 mg/dL Normal <150 [facility] Comment on above: Order Comment: Speci men Type: BLOOD SPECIMEN Ordering Facility: [facility] Address: [facility] [place] [id number] Result Comment: <150 mg/dL, Normal 150-199 mg/dL, Borderline high 200-499 mg/dL, High >499 mg/dL, Very high Performed By: #### 2 4331-1 #### [facility] CLIA [id number] [address] [place] [address] [place] [facility] CLIA [id number] [address] [place] [address] [place] #### 73551-3 #### [facility] CLIA [id number] [address] [place] [address] [place] NT-proBNP SerPl-mCncon 02-02 Natriuretic peptide.B prohormone N-Terminal [Mass/Vol] 8577 pg/mL High <450 [facility] Comment on above: Order Comment: Speci men Type: BLOOD SPECIMEN Ordering Facility: [facility] Address: [address] [place] [address] Performed By: #### 2 4331-1 #### [facility] CLIA [id number] [address] [place] [address] [place] [facility] CLIA [id number] [address] [place] [address] [place] #### 37307-8 #### [facility] CLIA [id number] [address] [place] [address] [place] Phosphate SerPl-mCncon 02-02 Phosphate [Mass/Vol] 3.3 mg/dL Normal 2.7-4.8 [facility] Comment on above: Order Comment: Speci men Type: BLOOD SPECIMEN Ordering Facility: [facility] Address: [address] [place] [address] Performed By: #### 3 3762-6 #### [facility] CLIA [id number] [address] [place] [address] [place] CNOVon 01-17-2024 CNOV Office Visit ([facility] ) BERTA SANCHES ([id number]) 1945 Date Time Provider Department 01/17/24 9:20 AM CARLA BURDICK During your visit today, we recorded the following information about you: Pulse Blood pressure Weight Height 64/minute 157/59 66.8 kg 1.575 m Carla Burdick MD 01/17/2024 10:36 AM Signed [facility] SE[facility] CARDIOLOGY Cardiology ([facility]) [address] [facility] [id number] OUTPATIENT VISIT DATE 01/17/2024 PRIMARY CARE PHYSICIAN: Doreen Le [address] [place] [address] HISTORY OF PRESENT ILLNESS: Ms. 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 Lau PACEMAKER 10/2019 PART. HYSTERECTOMY W/WO RMVL OVARIES/TUBES 1974 h/o cervical cancer ovaries remain PAST SURGICAL HISTORY OF 1996 Aortic valve repair, Dr. Apodaca PAST SURGICAL HISTORY OF 2001 [address] Beltrán, [facility] PAST SURGICAL HISTORY OF 2015 clipping [...] shortly af (more content not included)... Normal [facility] ALLIED HEALTHon 11-08-2023 ALLIED HEALTH HNO ID: [id number] Author: SONY LUIS RT(R) Service: Radiology 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: No RADIOLOGY DEPARTMENT: General X-ray: Exam(s) Completed: Chest X-Ray PERIPHERAL IV DATA: Not applicable SIGNED BY: RT Risa(R) November 08, 2023 6:37 PM [facility] ED PROV NOTEon 11-08-2023 ED PROV NOTE HNO ID: [id number] Author: SHUBHAM CHAUDHRY MD Service: ? Author Type: Physician Type: ED Provider Notes Filed: 11/08/2023 20:32 Note Text: Left after being seen in triage. Called patient and recommended she come back due to her presenting sxs. States she will come back. SIGNATURE: Shubham Chaudhry MD PATIENT NAME: Berta Sanches DATE: November 08, 2023 TIME: 8:31 PM PAGER/CONTACT #: SHUBHAM CHAUDHRY 11/08/232031 [facility] ED Triage Noteon 11-08-2023 ED Triage Note HNO ID: [id number] Author: SHUBHAM CHAUDHRY MD Service: ? Author [...] TROPONIN T EKG SIGNATURE: Shubham Chaudhry MD [facility] EKGon 11-08-2023 Electrocardiogram Ventricular Rate : 1 13 BPM Atrial Rate : 0 BPM P-R Interval : 250 ms QRS Duration : 102 ms Q-T Interval : 320 ms QTC Calculation(Bazett) : 439 ms Calculated P [place] : -38 degrees Calculated R [place] : -29 degrees Calculated T [place] : 132 degrees Sinus tachycardia Prolonged LA interval LVH with secondary repolarization abnormality Abnormal ECG No Stemi [id number] Confirmed by MD CHAUDHRY BLAIN ([id number]), editorial assistant BRYON MIJARES ([id number]) on 11/08/2023 10:31:52 PM NAME : BERTA SANCHES PID : [id number] : 1945 Gender : Female Race : ORD : Procedure Date : Nov 08 2023 17:44:03 Edit Date : Nov 08 2023 22:31:54 Diagnosis: Sinus tachycardia 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 No confluent alveolar opacity. Smt Technician: PSCB Transcribe Date/Time: Nov 08 2023 7:38P Dictated by : LIZZIE LARA MD This examination was interpreted and the report reviewed and electronically signed by: LIZZIE LARA MD on Nov 08 2023 7:44PM EST [id number] Normal [facility] US Lower extremity veins - b ilateralon 10-20-2023 Non-Invasive Vascular [facility] Lower Extremity Venous Duplex [...] below for Image [facility] ECG COMPLETEon 10-19-2023 Atrial Rate 125 BPM [facility] Calculated R [place] -40 degrees [facility] Calculated T [place] -34 degrees [facility] QRS Duration 106 ms [facility] QT Interval 410 ms [facility] QTC Calculation (Bazett) 490 ms [facility] Ventricular Rate 86 BPM [facility] XR Chest PA and Lateralon IMPRESSION: No acute radiographic abnormality. Cardiomegaly Smt Technician: JAMES Transcribe Date/Time: Oct 18 2023 4:16P Dictated by : MICHAELLE BAHENA MD This examination was interpreted and the report reviewed and electronically signed by: MICHAELLE BAHENA MD on Oct 18 2023 4:18PM [facility] DIVISION OF RADIOLOGY * [...] soft tissues: Unremarkable. DIVISION OF RADIOLOGY Provider, [facility] - 10/18/2023 * * *Final Report* [...] IMPRESSION IMPRESSION: No acute radiographic abnormality. Cardiomegaly Smt Technician: PSCB Transcribe Date/Time: Oct 18 2023 4:16P Dictated by : MICHAELLE BAHENA MD This examination was interpreted and the report reviewed and electronically signed by: MICHAELLE BAHENA MD on Oct 18 2023 4:18PM [facility] Radiology Study observation (narrative) [facility] XR Chest PA and LateralOrder ed By: Ccf Provider on 10-18-2023 [facility] No Panel Informationon 10-15 BLANK _ [facility] Implant Date 10/21/2020 [facility] PACEMAKER REMOTE CHECKon AV Delay Adaptive Paced Minimum (ms) 180 ms [facility] AV Delay Adaptive Sensed Minimum (ms) 150 ms [facility] AV Delay Adaptive Status DISABLED [facility] Battery Voltage (volts) 3.02 V C [facility] Pavan RA Pacing Amplitude (volts) 1.5 V [facility] Pavan RA Pacing Polarity BI [facility] Pavan RA Pacing Pulse Width (ms) 0.4 ms [facility] Pavan RA Sensing Amplitude (mvolts) 0.3 mV [facility] Pavan RA Sensing Blanking Period (ms) 150 ms [facility] Pavan RA Sensing Polarity BI [facility] Pavan RA Sensing Refractory Period (ms) Auto [facility] Pavan RV Pacing Amplitude (volts) 2 V [facility] Pavan RV Pacing Polarity BI [facility] Pavan RV Pacing Pulse Width (ms) 0.4 ms [facility] Pavan RV Sensing Amplitude (mvolts) 0.9 mV [facility] Pavan RV Sensing Blanking Period (ms) 200 ms [facility] Pavan RV Sensing Polarity BI [facility] Hysteresis Rate (bpm) DISABLED [facility] Lead1 Mfg MDT [facility] Lead2 Mfg MDT [facility] Location RV [facility] Location RA [facility] Lower Rate (bpm) 60 {beats}/min [facility] Max Sensor Rate (bmp) 120 {beats}/min [facility] Model [id number] Sania XT DR MRI Cl [facility] Model 3830 SelectSecure MR I SureScan [facility] Model 5076 CapSureFix Novus [facility] PM-Device Mfg MDT [facility] PM-Percent Pacing (A) 7.59 % [facility] PM-Percent Pacing (V) 18.89 % [facility] PM-PMT Intervention ENABLED [facility] PM-PVC Intervention ENABLED [facility] PM-Rate Modulation Acceleration Reaction 30 s [facility] PM-Rate Modulation ADL Rate (bpm) 95 {beats}/min [facility] PM-Rate Modulation Deceleration Exercise [facility] PM-Rate Modulation [place] 3 [facility] PM-Rate Modulation Threshold Low [facility] RA Bipolar Impedance ohms 513 ohm [facility] RA Unipolar Impedance ohms 304 ohm [facility] RV Bipolar Impedance ohms 456 ohm [facility] RV Unipolar Impedance 342 ohm [facility] Serial Number [id number] [facility] Serial Number [id number] [facility] Serial Number [id number] [facility] Thresh RA Capture Amplitude (volts) 0.75 V [facility] Thresh RA Capture Duration (ms) 0.4 ms [facility] Thresh RA Sensing Amplitude (mvolts) 0.5 mV [facility] Thresh RV Capture Amplitude (volts) 1 V [facility] Thresh RV Capture Duration (ms) 0.4 ms [facility] Thresh RV Sensing Amplitude (mvolts) 12.5 mV [facility] Tracking Rate (bpm) 120 {beats}/min [facility] INFLUENZA A&B MOLECULAR (POC )on 07-05-2023 Flu A (POCT) Negative Negative [facility] Flu B (POCT) Negative Negative [facility] Procedural Control Valid [facility] XR Foot - right AP and Later al and obliqueon 06-03-2023 IMPRESSION: 1. Nondisplaced fracture of the base of the right fifth metatarsal 2. Right first metatarsophalangeal joint space narrowing and periarticular erosions, which can be seen with gout Smt Technician: PSCB Transcribe Date/Time: Jun 03 2023 4:34P Dictated by : JUDSON JACINTO MD This examination was interpreted and the report reviewed and electronically signed by: JUSDON JACINTO MD on Jun 03 2023 4:36PM [facility] DIVISION OF RADIOLOGY * [...] soft tissue swelling. DIVISION OF RADIOLOGY Provider, [facility] - 06/03/2023 * * *Final Report* [...] erosions, which can be seen with gout Smt Technician: JAMES Transcribe Date/Time: Jun 03 2023 4:34P Dictated by : JUDSON JACINTO MD This examination was interpreted and the report reviewed and electronically signed by: JUDSON JACINTO MD on Jun 03 2023 4:36PM EST [facility] XR Foot - right AP and Later al and obliqueOrdered By: Cc Provider on 06-03-2023 [facility] XR Foot - right AP and Later al and obliqueon 06-01-2023 Radiology Study observation (narrative) [facility] CT CHEST WO IVCONon 04-30-20 [facility] XR Finger - right AP and Lat eral and obliqueon 04-15-2023 IMPRESSION: No acute osseous abnormality Smt Technician: VADIMB Transcribe Date/Time: Apr 15 2023 11:58A Dictated by : JUDSON JACINTO MD This examination was interpreted and the report reviewed and electronically signed by: JUDSON JACINTO MD on Apr 15 2023 11:59AM [facility] DIVISION OF RADIOLOGY * [...] No periarticular erosions. DIVISION OF RADIOLOGY Provider, [facility] - 04/15/2023 * * *Final Report* [...] erosions. IMPRESSION IMPRESSION: No acute osseous abnormality Smt Technician: PSCB Transcribe Date/Time: Apr 15 2023 11:58A Dictated by : JUDSON JACINTO MD This examination was interpreted and the report reviewed and electronically signed by: JUDSON JACINTO MD on Apr 15 2023 11:59AM EST [facility] XR Finger - right AP and Lat eral and obliqueOrdered By: Ccf Provider on 04-15-2023 [facility] XR Finger - right AP and Lat eral and obliqueon 04-12-2023 Radiology Study observation (narrative) [facility] No Panel Informationon 03-28 BLANK _ [facility] Implant Date 10/21/2020 [facility] PACEMAKER REMOTE CHECKon AV Delay Adaptive Paced Minimum (ms) 180 ms [facility] AV Delay Adaptive Sensed Minimum (ms) 150 ms [facility] AV Delay Adaptive Status DISABLED [facility] Battery Voltage (volts) 3.02 V [facility] Pavan RA Pacing Amplitude (volts) 1.5 V [facility] Pavan RA Pacing Polarity BI [facility] Pavan RA Pacing Pulse Width (ms) 0.4 ms [facility] Pavan RA Sensing Amplitude (mvolts) 0.3 mV [facility] Pavan RA Sensing Blanking Period (ms) 150 ms [facility] Pavan RA Sensing Polarity BI [facility] Pavan RA Sensing Refractory Period (ms) Auto [facility] Pavan RV Pacing Amplitude (volts) 2 V [facility] Pavan RV Pacing Polarity BI [facility] Pavan RV Pacing Pulse Width (ms) 0.4 ms [facility] Pavan RV Sensing Amplitude (mvolts) 0.9 mV [facility] Pavan RV Sensing Blanking Period (ms) 200 ms [facility] Pavan RV Sensing Polarity BI [facility] Hysteresis Rate (bpm) DISABLED [facility] Lead1 Mfg MDT [facility] Lead2 Mfg MDT [facility] Location RV [facility] Location RA [facility] Lower Rate (bpm) 60 {beats}/min [facility] Max Sensor Rate (bmp) 120 {beats}/min [facility] Model [id number] Sania XT DR MRI Cl [facility] Model 3830 SelectSecure MR I SureScan [facility] Model 5076 CapSureFix Nov[facility] PM-Device Mfg MDT [facility] PM-Percent Pacing (A) 96.66 % [facility] PM-Percent Pacing (V) 1.41 % [facility] PM-PMT Intervention ENABLED [facility] PM-PVC Intervention ENABLED [facility] PM-Rate Modulation Acceleration Reaction 30 s [facility] PM-Rate Modulation ADL Rate (bpm) 95 {beats}/min [facility] PM-Rate Modulation Deceleration Exercise [facility] PM-Rate Modulation [place] 3 [facility] PM-Rate Modulation Threshold Low [facility] RA Bipolar Impedance ohms 475 ohm [facility] RA Unipolar Impedance ohms 304 ohm [facility] RV Bipolar Impedance ohms 437 ohm [facility] RV Unipolar Impedance 342 ohm [facility] Serial Number [id number] [facility] Serial Number [id number] [facility] Serial Number [id number] [facility] Thresh RA Capture Amplitude (volts) 0.75 V [facility] Thresh RA Capture Duration (ms) 0.4 ms [facility] Thresh RA Sensing Amplitude (mvolts) 0.75 mV [facility] Thresh RV Capture Amplitude (volts) 1 V [facility] Thresh RV Capture Duration (ms) 0.4 ms [facility] Thresh RV Sensing Amplitude (mvolts) 12.375 mV [facility] Tracking Rate (bpm) 120 {beats}/min [facility] No Panel Informationon 12-29 BLANK _ [facility] Implant Date 10/21/2020 [facility] PACEMAKER REMOTE CHECKon AV Delay Adaptive Paced Minimum (ms) 180 ms [facility] AV Delay Adaptive Sensed Minimum (ms) 150 ms [facility] AV Delay Adaptive Status DISABLED [facility] Battery Voltage (volts) 3.02 V C [facility] Pavan RA Pacing Amplitude (volts) 1.5 V [facility] Pavan RA Pacing Polarity BI [facility] Pavan RA Pacing Pulse Width (ms) 0.4 ms [facility] Pavan RA Sensing Amplitude (mvolts) 0.3 mV [facility] Pavan RA Sensing Blanking Period (ms) 150 ms [facility] Pavan RA Sensing Polarity BI [facility] Pavan RA Sensing Refractory Period (ms) Auto [facility] Pavan RV Pacing Amplitude (volts) 2 V [facility] Pavan RV Pacing Polarity BI [facility] Pavan RV Pacing Pulse Width (ms) 0.4 ms [facility] Pavan RV Sensing Amplitude (mvolts) 0.9 mV [facility] Pavan RV Sensing Blanking Period (ms) 200 ms [facility] Pavan RV Sensing Polarity BI [facility] Hysteresis Rate (bpm) DISABLED [facility] Lead1 Mfg MDT [facility] Lead2 Mfg MDT [facility] Location RV [facility] Location RA [facility] Lower Rate (bpm) 60 {beats}/min [facility] Max Sensor Rate (bmp) 120 {beats}/min [facility] Model [id number] [place] XT DR MRI Cl [facility] Model 3830 SelectSecure MR I SureScan [facility] Model 5076 CapSureFix Nov[facility] PM-Device Mfg MDT [facility] PM-Percent Pacing (A) 79.14 % [facility] PM-Percent Pacing (V) 5.48 % [facility] PM-PMT Intervention ENABLED [facility] PM-PVC Intervention ENABLED [facility] PM-Rate Modulation Acceleration Reaction 30 s [facility] PM-Rate Modulation ADL Rate (bpm) 95 {beats}/min [facility] PM-Rate Modulation Deceleration Exercise [facility] PM-Rate Modulation [place] 3 [facility] PM-Rate Modulation Threshold Low [facility] RA Bipolar Impedance ohms 437 ohm [facility] RA Unipolar Impedance ohms 304 ohm [facility] RV Bipolar Impedance ohms 437 ohm [facility] RV Unipolar Impedance 342 ohm [facility] Serial Number [id number] [facility] Serial Number [id number] [facility] Serial Number [id number] [facility] Thresh RA Capture Amplitude (volts) 0.625 V [facility] Thresh RA Capture Duration (ms) 0.4 ms [facility] Thresh RA Sensing Amplitude (mvolts) 0.875 mV [facility] Thresh RV Capture Amplitude (volts) 1 V [facility] Thresh RV Capture Duration (ms) 0.4 ms [facility] Thresh RV Sensing Amplitude (mvolts) 10.75 mV [facility] Tracking Rate (bpm) 120 {beats}/min [facility] MRA BRAIN WO/W IVCONon 12-10 MRA BRAIN WO/W IVCON * * *Final Report* * * DATE OF EXAM: Dec 10 2022 1:14PM [facility] 0273 - MRA BRAIN WO/W IVCON / PROCEDURE REASON: multiple diagnoses * * * * Physician Interpretation * * * * EXAMINATION: MRA BRAIN WO/W IVCON CLINICAL HISTORY: Nonruptured acom aneurysm follow-up. TECHNIQUE: Short TR short TE SPGR through the [facility] [place] after contrast. Intracranial 3D [id number] MRA with post-processing performed at the modality [...] aneurysm coiling. No additional intracranial aneurysms identified. Smt Technician: JAMES Transcribe Date/Time: Dec 10 2022 1:31P Dictated by : TYE REN MD This examination was interpreted and the report reviewed and electronically signed by: TYE REN MD on Dec 10 2022 1:38PM EST [id number] Normal [facility] KIDNEY/BLADDERon 10-07-19 Radiology Result ACTIONABLE Abnormal [facility] No Panel Informationon 09-27 BLANK _ [facility] Implant Date 10/21/2020 [facility] PACEMAKER REMOTE CHECKon AV Delay Adaptive Paced Minimum (ms) 180 ms [facility] AV Delay Adaptive Sensed Minimum (ms) 150 ms [facility] AV Delay Adaptive Status DISABLED [facility] Battery Voltage (volts) 3.02 V [facility] Pavan RA Pacing Amplitude (volts) 1.5 V [facility] Pavan RA Pacing Polarity BI [facility] Pavan RA Pacing Pulse Width (ms) 0.4 ms [facility] Pavan RA Sensing Amplitude (mvolts) 0.3 mV [facility] Pavan RA Sensing Blanking Period (ms) 150 ms [facility] Pavan RA Sensing Polarity BI [facility] Pavan RA Sensing Refractory Period (ms) Auto [facility] Pavan RV Pacing Amplitude (volts) 2 V [facility] Pavan RV Pacing Polarity BI [facility] Pavan RV Pacing Pulse Width (ms) 0.4 ms [facility] Pavan RV Sensing Amplitude (mvolts) 0.9 mV [facility] Pavan RV Sensing Blanking Period (ms) 200 ms [facility] Pavan RV Sensing Polarity BI [facility] Hysteresis Rate (bpm) DISABLED [facility] Lead1 Karlg MDT [facility] Lead2 Karlg T [facility] Location RV [facility] Location RA [facility] Lower Rate (bpm) 60 {beats}/min [facility] Max Sensor Rate (bmp) 120 {beats}/min [facility] Model W1DR01 Sania XT DR MRI Cl [facility] Model 3830 SelectSecure MR I SureScan [facility] Model 5076 CapSureFix [facility] PM-Device Mfg MDT [facility] PM-Percent Pacing (A) 46.27 % [facility] PM-Percent Pacing (V) 11.47 % [facility] PM-PMT Intervention ENABLED [facility] PM-PVC Intervention ENABLED [facility] PM-Rate Modulation Acceleration Reaction 30 s [facility] PM-Rate Modulation ADL Rate (bpm) 95 {beats}/min [facility] PM-Rate Modulation Deceleration Exercise [facility] PM-Rate Modulation [place] 3 [facility] PM-Rate Modulation Threshold Low [facility] RA Bipolar Impedance ohms 494 ohm [facility] RA Unipolar Impedance ohms 285 ohm [facility] RV Bipolar Impedance ohms 437 ohm [facility] RV Unipolar Impedance 323 ohm [facility] Serial Number [id number] [facility] Serial Number [id number] [facility] Serial Number [id number] [facility] Thresh RA Capture Amplitude (volts) 0.5 V [facility] Thresh RA Capture Duration (ms) 0.4 ms [facility] Thresh RA Sensing Amplitude (mvolts) 0.5 mV [facility] Thresh RV Capture Amplitude (volts) 1 V [facility] Thresh RV Capture Duration (ms) 0.4 ms [facility] Thresh RV Sensing Amplitude (mvolts) 13.375 mV [facility] Tracking Rate (bpm) 120 {beats}/min [facility] No Panel Informationon 06-30 BLANK _ [facility] Implant Date 10/21/2020 [facility] PACEMAKER REMOTE CHECKon AV Delay Adaptive Paced Minimum (ms) 180 ms [facility] AV Delay Adaptive Sensed Minimum (ms) 150 ms [facility] AV Delay Adaptive Status DISABLED [facility] Battery Voltage (volts) 3.03 V [facility] Pavan RA Pacing Amplitude (volts) 1.5 V [facility] Pavan RA Pacing Polarity BI [facility] Pavan RA Pacing Pulse Width (ms) 0.4 ms [facility] Pavan RA Sensing Amplitude (mvolts) 0.3 mV [facility] Pavan RA Sensing Blanking Period (ms) 150 ms [facility] Pavan RA Sensing Polarity BI [facility] Pavan RA Sensing Refractory Period (ms) Auto [facility] Pavan RV Pacing Amplitude (volts) 2.5 V [facility] Pavan RV Pacing Polarity BI [facility] Pavan RV Pacing Pulse Width (ms) 0.4 ms [facility] Pavan RV Sensing Amplitude (mvolts) 0.9 mV [facility] Pavan RV Sensing Blanking Period (ms) 200 ms [facility] Pavan RV Sensing Polarity BI [facility] Hysteresis Rate (bpm) DISABLED [facility] Lead1 Mfg MDT [facility] Lead2 Mfg MDT [facility] Location RV [facility] Location RA [facility] Lower Rate (bpm) 60 {beats}/min [facility] Max Sensor Rate (bmp) 120 {beats}/min [facility] Model W1DR01 Sania XT DR MRI Cl [facility] Model 3830 SelectSecure MR I SureScan [facility] Model 5076 CapSureFix Nov[facility] PM-Device Mfg MDT [facility] PM-Percent Pacing (A) 53.59 % [facility] PM-Percent Pacing (V) 11.72 % [facility] PM-PMT Intervention ENABLED [facility] PM-PVC Intervention ENABLED [facility] PM-Rate Modulation Acceleration Reaction 30 s [facility] PM-Rate Modulation ADL Rate (bpm) 95 {beats}/min [facility] PM-Rate Modulation Deceleration Exercise [facility] PM-Rate Modulation [place] 3 [facility] PM-Rate Modulation Threshold Low [facility] RA Bipolar Impedance ohms 456 ohm [facility] RA Unipolar Impedance ohms 304 ohm [facility] RV Bipolar Impedance ohms 437 ohm [facility] RV Unipolar Impedance 323 ohm [facility] Serial Number [id number] [facility] Serial Number [id number] [facility] Serial Number [id number] [facility] Thresh RA Capture Amplitude (volts) 0.5 V [facility] Thresh RA Capture Duration (ms) 0.4 ms [facility] Thresh RA Sensing Amplitude (mvolts) 0.375 mV [facility] Thresh RV Capture Amplitude (volts) 1.125 V [facility] Thresh RV Capture Duration (ms) 0.4 ms [facility] Thresh RV Sensing Amplitude (mvolts) 9.25 mV [facility] Tracking Rate (bpm) 120 {beats}/min [facility] UA DIP, URINE (POC)on 2021 BILIRUBIN UA (POCT) Negative Negative [facility] CLARITY UA (POCT) Clear [facility] COLOR UA (POCT) Yellow [facility] GLUCOSE UA (POCT) Negative Negative mg/dL [facility] HEMOGLOBIN/BLOOD UA (POCT) Negative Negative [facility] KETONE UA (POCT) Negative Negative mg/dL [facility] LEUKOCYTES [facility] (PO[facility]) [facility] NITRITE UA (POCT) Negative Negative [facility] PH UA (POCT) 5.5 4.5 - 8.0 [facility] Protein Ql (U) 30 mg/dL Abnormal Negative mg/dL [facility] SPECIFIC GRAVITY UA (POCT) 1.020 1.005 - 1.030 [facility] UROBILINOGEN UA (POCT) 0.2 E.U./dL Cat l E.U./dL [facility] CBC W Auto Differential pane l (Bld)on 04-06-2022 Abs Immature Gran 0.03 k/uL <0.10 k/uL [facility] Basophils (Bld) [#/Vol] 0.08 10*3/uL <0.11 k/uL [facility] Basophils/100 WBC (Bld) 1.1 % C [facility] Differential cell count method Nom (Bld) Auto [facility] Eosinophils (Bld) [#/Vol] 0.11 10*3/uL <0.46 k/uL [facility] Eosinophils/100 WBC (Bld) 1.5 % [facility] Erythrocyte distribution width (RBC) [Ratio] 19.9 % High 11.5 - 15.0 % [facility] Hematocrit (Bld) [Volume fraction] 31.3 % Low 36.0 - 46.0 % [facility] Hemoglobin (Bld) [Mass/Vol] 9.2 g/dL Low 11.5 - 15.5 g/dL [facility] Immature Gran % 0.4 % [facility] Lymphocytes (Bld) [#/Vol] 2.05 10*3/uL 1.00 - 4.00 k/uL [facility] Lymphocytes/100 WBC (Bld) 27.9 % [facility] MCH (RBC) [Entitic mass] 24.5 pg Low 26.0 - 34.0 pg [facility] MCHC (RBC) [Mass/Vol] 29.4 g/dL Low 30.5 - 36.0 g/dL [facility] MCV (RBC) [Entitic vol] 83.5 fL 80.0 - 100.0 fL [facility] Monocytes (Bld) [#/Vol] 0.93 10*3/uL High <0.87 k/uL [facility] Monocytes/100 WBC (Bld) 12.7 % C [facility] Neutrophils (Bld) [#/Vol] 4.14 10*3/uL 1.45 - 7.50 k/uL [facility] Neutrophils/100 WBC (Bld) 56.4 % [facility] Nucleated RBC (Bld) [#/Vol] <0.01 k/uL [facility] Nucleated RBC/100 WBC (Bld) [Ratio] 0.0 /100 WBC [facility] Platelet mean volume (Bld) [Entitic vol] 9.8 fL 9.0 - 12.7 fL [facility] Platelets (Bld) [#/Vol] 266 10*3/uL 150 - 400 k/uL [facility] RBC (Bld) [#/Vol] 3.75 10*6/uL Low 3.90 - 5.2 0 m/uL [facility] WBC (Bld) [#/Vol] 7.34 10*3/uL 3.70 - 11. 00 k/uL [facility] FERRITIN BLDon 04-06-2022 Ferritin [Mass/Vol] 27.1 ng/mL 14.7 - 2 05.1 ng/mL [facility] Iron and Iron binding capaci ty panelon 04-06-2022 Iron [Mass/Vol] 26 ug/dL Low 41 - 186 ug/dL [facility] Iron binding capacity [Mass/Vol] 454 ug/dL High 232 - 386 ug/dL [facility] Iron/TIBC [Molar ratio] 5.7 % Low 15.0 - 57.0 % [facility] No Panel Informationon 03-28 BLANK _ [facility] Implant Date 10/21/2020 [facility] PACEMAKER REMOTE CHECKon AV Delay Adaptive Paced Minimum (ms) 180 ms [facility] AV Delay Adaptive Sensed Minimum (ms) 150 ms [facility] AV Delay Adaptive Status DISABLED [facility] Battery Voltage (volts) 3.03 V [facility] [place] RA Pacing Amplitude (volts) 1.5 V [facility] [place] RA Pacing Polarity BI [facility] Pavan RA Pacing Pulse Width (ms) 0.4 ms [facility] Pavan RA Sensing Amplitude (mvolts) 0.3 mV [facility] Pavan RA Sensing Blanking Period (ms) 150 ms [facility] Pavan RA Sensing Polarity BI [facility] RA Sensing Refractory Period (ms) Auto [facility] [place] RV Pacing Amplitude (volts) 2 V [facility] [place] RV Pacing Polarity BI [facility] Pavan RV Pacing Pulse Width (ms) 0.4 ms [facility] Pavan RV Sensing Amplitude (mvolts) 0.9 mV [facility] Pavan RV Sensing Blanking Period (ms) 200 ms [facility] Pavan RV Sensing Polarity BI [facility] Hysteresis Rate (bpm) DISABLED [facility] Lead1 Mfg MDT [facility] Lead2 Mfg MDT [facility] Location RV [facility] Location RA [facility] Lower Rate (bpm) 60 {beats}/min [facility] Max Sensor Rate (bmp) 120 {beats}/min [facility] Model [id number] [place] XT DR MRI Cl [facility] Model 3830 SelectSecure MR I SureScan [facility] Model 5076 CapSureFix Novus [facility] PM-Device Mfg MDT [facility] PM-Percent Pacing (A) 13.82 % [facility] PM-Percent Pacing (V) 9.69 % [facility] PM-PMT Intervention ENABLED [facility] PM-PVC Intervention ENABLED [facility] PM-Rate Modulation Acceleration Reaction 30 s [facility] PM-Rate Modulation ADL Rate (bpm) 95 {beats}/min [facility] PM-Rate Modulation Deceleration Exercise [facility] PM-Rate Modulation [place] 3 [facility] PM-Rate Modulation Threshold Low [facility] RA Bipolar Impedance ohms 437 ohm [facility] RA Unipolar Impedance ohms 285 ohm [facility] RV Bipolar Impedance ohms 418 ohm [facility] RV Unipolar Impedance 323 ohm [facility] Serial Number [id number] [facility] Serial Number [id number] [facility] Serial Number [id number] [facility] Thresh RA Capture Amplitude (volts) 0.75 V [facility] Thresh RA Capture Duration (ms) 0.4 ms [facility] Thresh RA Sensing Amplitude (mvolts) 0.25 mV [facility] Thresh RV Capture Amplitude (volts) 1 V [facility] Thresh RV Capture Duration (ms) 0.4 ms [facility] Thresh RV Sensing Amplitude (mvolts) 13.375 mV [facility] Tracking Rate (bpm) 120 {beats}/min [facility] ECHO TRANSESOPHAGEALon 03-03 [facility] No Panel Informationon 03-03 BLANK _ [facility] Implant Date 10/21/2020 [facility] AV Delay Adaptive Paced Minimum (ms) 180 ms [facility] AV Delay Adaptive Sensed Minimum (ms) 150 ms [facility] AV Delay Adaptive Status DISABLED [facility] Battery Voltage (volts) 3.03 V [facility] [place] RA Pacing Amplitude (volts) 1.5 V [facility] Pavan RA Pacing Polarity BI [facility] Pavan RA Pacing Pulse Width (ms) 0.4 ms [facility] Pavan RA Sensing Amplitude (mvolts) 0.3 mV [facility] Pavan RA Sensing Blanking Period (ms) 150 ms [facility] Pavan RA Sensing Polarity BI [facility] Pavan RA Sensing Refractory Period (ms) Auto [facility] Pavan RV Pacing Amplitude (volts) 2 V [facility] Pavan RV Pacing Polarity BI [facility] Pavan RV Pacing Pulse Width (ms) 0.4 ms [facility] Pavan RV Sensing Amplitude (mvolts) 0.9 mV [facility] Pavan RV Sensing Blanking Period (ms) 200 ms [facility] Pavan RV Sensing Polarity BI [facility] Hysteresis Rate (bpm) DISABLED [facility] Lead1 Mfg MDT [facility] Lead2 Mfg MDT [facility] Location RV [facility] Location RA [facility] Lower Rate (bpm) 60 {beats}/min [facility] Max Sensor Rate (bmp) 120 {beats}/min [facility] Model [id number] [place] XT DR MRI Cl [facility] Model 3830 SelectSecure MR I SureScan [facility] Model 5076 CapSureFix Novus [facility] Pacemaker Dependent? NO [facility] PM-Device Mfg MDT [facility] PM-Percent Pacing (A) 3.4 % [facility] PM-Percent Pacing (V) 14.6 % [facility] PM-PMT Intervention ENABLED [facility] PM-PVC Intervention ENABLED [facility] PM-Rate Modulation Acceleration Reaction 30 s [facility] PM-Rate Modulation ADL Rate (bpm) 95 {beats}/min [facility] PM-Rate Modulation Deceleration Exercise [facility] PM-Rate Modulation [place] 3 [facility] PM-Rate Modulation Threshold Low [facility] RA Bipolar Impedance ohms 456 ohm [facility] RA Unipolar Impedance ohms 285 ohm [facility] Rhythm Atrial Fibrillation [facility] RV Bipolar Impedance ohms 437 ohm [facility] RV Unipolar Impedance 342 ohm [facility] Serial Number [id number] [facility] Serial Number [id number] [facility] Serial Number [id number] [facility] Thresh RA Capture Amplitude (volts) 0.75 V [facility] Thresh RA Capture Duration (ms) 0.4 ms [facility] Thresh RA Sensing Amplitude (mvolts) 0.375 mV [facility] Thresh RV Capture Amplitude (volts) 0.875 V [facility] Thresh RV Capture Duration (ms) 0.4 ms [facility] Thresh RV Sensing Amplitude (mvolts) 12.75 mV [facility] Tracking Rate (bpm) 120 {beats}/min [facility] HEMOGLOBIN (HGB)on Hemoglobin (Bld) [Mass/Vol] 8.1 g/dL Low 11.5 - 15.5 g/dL [facility] Hematocrit Auto (Bld) [Volum e fraction]on 02-20-2022 Hematocrit (Bld) [Volume fraction] 26.4 % Low 36.0 - 46.0 % [facility] No Panel Informationon 01-09 BLANK _ [facility] Implant Date 10/21/2020 [facility] CHECK[facility] AV Delay Adaptive Paced Minimum (ms) 180 ms [facility] AV Delay Adaptive Sensed Minimum (ms) 150 ms [facility] AV Delay Adaptive Status DISABLED [facility] Battery Voltage (volts) 3.04 V [facility] [place] RA Pacing Amplitude (volts) 1.5 V [facility] Pavan RA Pacing Polarity BI [facility] Pavan RA Pacing Pulse Width (ms) 0.4 ms [facility] Pavan RA Sensing Amplitude (mvolts) 0.3 mV [facility] Pavan RA Sensing Blanking Period (ms) 150 ms [facility] Pavan RA Sensing Polarity BI [facility] Pavan RA Sensing Refractory Period (ms) Auto [facility] Pavan RV Pacing Amplitude (volts) 2 V [facility] [place] RV Pacing Polarity BI [facility] Pavan RV Pacing Pulse Width (ms) 0.4 ms [facility] Pavan RV Sensing Amplitude (mvolts) 0.9 mV [facility] Pavan RV Sensing Blanking Period (ms) 200 ms [facility] Pavan RV Sensing Polarity BI [facility] Hysteresis Rate (bpm) DISABLED [facility] Lead1 Mfg MDT [facility] Lead2 Mfg MDT [facility] Location RV [facility] Location RA [facility] Lower Rate (bpm) 60 {beats}/min [facility] Max Sensor Rate (bmp) 120 {beats}/min [facility] Model [id number] [place] XT DR MRI Cl [facility] Model 3830 SelectSecure MR I SureScan [facility] Model 5076 CapSureFix Novus [facility] Pacemaker Dependent? NO [facility] PM-Device Karlg MDT [facility] PM-Percent Pacing (A) 32.01 % [facility] PM-Percent Pacing (V) 13.19 % [facility] PM-PMT Intervention ENABLED [facility] PM-PVC Intervention ENABLED [facility] PM-Rate Modulation Acceleration Reaction 30 s [facility] PM-Rate Modulation ADL Rate (bpm) 95 {beats}/min [facility] PM-Rate Modulation Deceleration Exercise [facility] PM-Rate Modulation [place] 3 [facility] PM-Rate Modulation Threshold Low [facility] RA Bipolar Impedance ohms 456 ohm [facility] RA Unipolar Impedance ohms 285 ohm [facility] Rhythm Atrial Fibrillation [facility] RV Bipolar Impedance ohms 437 ohm [facility] RV Unipolar Impedance 342 ohm [facility] Serial Number [id number] [facility] Serial Number [id number] [facility] Serial Number [id number] [facility] Thresh RA Capture Amplitude (volts) 0.75 V [facility] Thresh RA Capture Duration (ms) 0.4 ms [facility] Thresh RA Sensing Amplitude (mvolts) 0.375 mV [facility] Thresh RV Capture Amplitude (volts) 1 V [facility] Thresh RV Capture Duration (ms) 0.4 ms [facility] Thresh RV Sensing Amplitude (mvolts) 13.6 mV [facility] Tracking Rate (bpm) 120 {beats}/min [facility] EGD DIAGNOSTICon 01-02-2022 [facility] CBC panel Auto (Bld)on 12-26 Erythrocyte distribution width (RBC) [Ratio] 16.8 % High 11.5 - 15.0 % [facility] Hematocrit (Bld) [Volume fraction] 28.2 % Low 36.0 - 46.0 % [facility] Hemoglobin (Bld) [Mass/Vol] 8.1 g/dL Low 11.5 - 15.5 g/dL [facility] MCH (RBC) [Entitic mass] 24.5 pg Low 26.0 - 34.0 pg [facility] MCHC (RBC) [Mass/Vol] 28.7 g/dL Low 30.5 - 36.0 g/dL [facility] MCV (RBC) [Entitic vol] 85.5 fL 80.0 - 100.0 fL [facility] Nucleated RBC (Bld) [#/Vol] 10*3/uL <0.01 k/uL [facility] Platelet mean volume (Bld) [Entitic vol] 10.3 fL 9.0 - 12.7 fL [facility] Platelets (Bld) [#/Vol] 248 10*3/uL 150 - 400 k/uL [facility] RBC (Bld) [#/Vol] 3.30 10*6/uL Low 3.90 - 5.2 0 m/uL [facility] WBC (Bld) [#/Vol] 10.54 10*3/uL 3.70 - 11 .00 k/uL [facility] CBC panel Auto (Bld)on 12-15 Erythrocyte distribution width (RBC) [Ratio] 15.7 % High 11.5 - 15.0 % [facility] Hematocrit (Bld) [Volume fraction] 31.0 % Low 36.0 - 46.0 % [facility] Hemoglobin (Bld) [Mass/Vol] 9.3 g/dL Low 11.5 - 15.5 g/dL [facility] MCH (RBC) [Entitic mass] 24.4 pg Low 26.0 - 34.0 pg [facility] MCHC (RBC) [Mass/Vol] 30.0 g/dL Low 30.5 - 36.0 g/dL [facility] MCV (RBC) [Entitic vol] 81.4 fL 80.0 - 100.0 fL [facility] Nucleated RBC (Bld) [#/Vol] 10*3/uL <0.01 k/uL [facility] Platelet mean volume (Bld) [Entitic vol] 10.0 fL 9.0 - 12.7 fL [facility] Platelets (Bld) [#/Vol] 273 10*3/uL 150 - 400 k/uL [facility] RBC (Bld) [#/Vol] 3.81 10*6/uL Low 3.90 - 5.2 0 m/uL [facility] WBC (Bld) [#/Vol] 9.78 10*3/uL 3.70 - 11. 00 k/uL [facility] HbA1c (Bld)on 12-15-2021 Average glucose Estimated from glycated hemoglobin (Bld) [Mass/Vol] 157 mg/dL [facility] HbA1c (d) [Mass fraction] 7.1 % High 4.3 - 5.6 % [facility] Lipid 1996 panelon 2 Cholesterol [Mass/Vol] 121 mg/dL <200 mg/dL [facility] Cholesterol in HDL [Mass/Vol] 43 mg/dL >39 mg/dL [facility] Cholesterol in LDL [Mass/Vol] 59 mg/dL <100 mg/dL [facility] Cholesterol in LDL/Cholesterol in HDL [Mass ratio] 1.37 {ratio} <2.54 [facility] Cholesterol in VLDL [Mass/Vol] 19 mg/dL <30 mg/dL [facility] Cholesterol non HDL [Mass/Vol] 78 mg/dL <130 mg/dL [facility] Cholesterol.total/Gin sterol in HDL [Mass ratio] 2.81 {ratio} <5.10 [facility] Fasting Time 12 hrs [facility] Triglyceride [Mass/Vol] 93 mg/dL <150 mg/dL [facility] XR HIP GENERAL 3V PELV/AP/LA T LEFTon 12-15-2021 [facility] XR Pelvis and Hip - left AP and Lateral frogon 12-15-2021 IMPRESSION: NEGATIVE HIP. Smt Technician: PSCB Transcribe Date/Time: Dec 15 2021 12:36P [...] relevant examinations available for comparison within the [facility] Imaging Archives. RESULT: Supine radiograph of the pelvis as well as AP and frogleg views of the left hip demonstrate the bony pelvic ring intact. The hips are bilaterally symmetric without fracture or dislocation. No acute bony process is noted. The soft tissues demonstrate aortoiliac calcification [email or web address] [id number] N OF RADIOLOGY Provider, [place] [facility] - 12/15/2021 * * *Final Report* [...] relevant examinations available for comparison within the [facility] Archives. RESULT: Supine radiograph of the pelvis as well as AP and frogleg views of the left hip demonstrate the bony pelvic ring intact. The hips are bilaterally symmetric without fracture or dislocation. No acute bony process is noted. The soft tissues demonstrate aortoiliac calcification IMPRESSION IMPRESSION: NEGATIVE HIP. Smt Technician: PSCB Transcribe Date/Time: Dec 15 2021 12:36P Dictated by : JUAN MOSCOSO MD This examination was interpreted and the report reviewed and electronically signed by: JUAN MOSOCSO MD on Dec 15 2021 12:38PM EST [facility] Radiology Study observation (narrative) Chris Miranda XR Pelvis and Hip - left AP and Lateral frogOrdered By: Ccf Provider on 12-15-2021 [facility] No Panel Informationon 12-13 BLANK _ [facility] Implant Date 10/21/2020 [facility] PACEMAKER REMOTE CHECKon AV Delay Adaptive Paced Minimum (ms) 180 ms [facility] AV Delay Adaptive Sensed Minimum (ms) 150 ms [facility] AV Delay Adaptive Status DISABLED [facility] Battery Voltage (volts) 3.04 V C [facility] [place] RA Pacing Amplitude (volts) 1.5 V [facility] Pavan RA Pacing Polarity BI [facility] Pavan RA Pacing Pulse Width (ms) 0.4 ms [facility] Pavan RA Sensing Amplitude (mvolts) 0.3 mV [facility] Pavan RA Sensing Blanking Period (ms) 150 ms [facility] Pavan RA Sensing Polarity BI [facility] Pavan RA Sensing Refractory Period (ms) Auto [facility] Pavan RV Pacing Amplitude (volts) 2 V [facility] Pavan RV Pacing Polarity BI [facility] Pavan RV Pacing Pulse Width (ms) 0.4 ms [facility] Pavan RV Sensing Amplitude (mvolts) 0.9 mV [facility] Pavan RV Sensing Blanking Period (ms) 200 ms [facility] Pavan RV Sensing Polarity BI [facility] Hysteresis Rate (bpm) DISABLED [facility] Lead1 Mfg MDT [facility] Lead2 Mfg MDT [facility] Location RV [facility] Location RA [facility] Lower Rate (bpm) 60 {beats}/min [facility] Max Sensor Rate (bmp) 120 {beats}/min [facility] Model [id number] [place] XT DR MRI Cl [facility] Model 3830 SelectSecure MR I SureScan [facility] Model 5076 CapSureFix Novus [facility] PM-Device Mfg MDT [facility] PM-Percent Pacing (A) 0.2 % [facility] PM-Percent Pacing (V) 19.48 % [facility] PM-PMT Intervention ENABLED [facility] PM-PVC Intervention ENABLED [facility] PM-Rate Modulation Acceleration Reaction 30 s [facility] PM-Rate Modulation ADL Rate (bpm) 95 {beats}/min [facility] PM-Rate Modulation Deceleration Exercise [facility] PM-Rate Modulation [place] 3 [facility] PM-Rate Modulation Threshold Low [facility] RA Bipolar Impedance ohms 475 ohm [facility] RA Unipolar Impedance ohms 285 ohm [facility] RV Bipolar Impedance ohms 418 ohm [facility] RV Unipolar Impedance 323 ohm [facility] Serial Number [id number] [facility] Serial Number [id number] [facility] Serial Number [id number] [facility] Thresh RA Capture Amplitude (volts) 0.75 V [facility] Thresh RA Capture Duration (ms) 0.4 ms [facility] Thresh RA Sensing Amplitude (mvolts) 0.5 mV [facility] Thresh RV Capture Amplitude (volts) 0.875 V [facility] Thresh RV Capture Duration (ms) 0.4 ms [facility] Thresh RV Sensing Amplitude (mvolts) 12.625 mV [facility] Tracking Rate (bpm) 120 {beats}/min [facility] No Panel Informationon 09-26 BLANK _ [facility] Implant Date 10/21/2020 [facility] PACEMAKER REMOTE CHECKon AV Delay Adaptive Paced Minimum (ms) 180 ms [facility] AV Delay Adaptive Sensed Minimum (ms) 150 ms [facility] AV Delay Adaptive Status DISABLED [facility] Battery Voltage (volts) 3.06 V [facility] [place] RA Pacing Amplitude (volts) 1.5 V [facility] Pavan RA Pacing Polarity BI [facility] Pavan RA Pacing Pulse Width (ms) 0.4 ms [facility] Pavan RA Sensing Amplitude (mvolts) 0.3 mV [facility] Pavan RA Sensing Blanking Period (ms) 150 ms [facility] Paavn RA Sensing Polarity BI [facility] Pavan RA Sensing Refractory Period (ms) Auto [facility] Pavan RV Pacing Amplitude (volts) 2 V [facility] Pavan RV Pacing Polarity BI [facility] Pavan RV Pacing Pulse Width (ms) 0.4 ms [facility] Pavan RV Sensing Amplitude (mvolts) 0.9 mV [facility] Pavan RV Sensing Blanking Period (ms) 200 ms [facility] Pavan RV Sensing Polarity BI [facility] Hysteresis Rate (bpm) DISABLED [facility] Lead1 Mfg MDT [facility] Lead2 Mfg MDT [facility] Location RV [facility] Location RA [facility] Lower Rate (bpm) 60 {beats}/min [facility] Max Sensor Rate (bmp) 120 {beats}/min [facility] Model [id number] [place] XT DR MRI Cl [facility] Model 3830 SelectSecure MR I SureScan [facility] Model 5076 [facility] PM-Device Mfg MDT [facility] PM-Percent Pacing (A) 0.09 % [facility] PM-Percent Pacing (V) 23.44 % [facility] PM-PMT Intervention ENABLED [facility] PM-PVC Intervention ENABLED [facility] PM-Rate Modulation Acceleration Reaction 30 s [facility] PM-Rate Modulation ADL Rate (bpm) 95 {beats}/min [facility] PM-Rate Modulation Deceleration Exercise [facility] PM-Rate Modulation [place] 3 [facility] PM-Rate Modulation Threshold Low [facility] RA Bipolar Impedance ohms 532 ohm [facility] RA Unipolar Impedance ohms 304 ohm [facility] RV Bipolar Impedance ohms 418 ohm [facility] RV Unipolar Impedance 342 ohm [facility] Serial Number [id number] [facility] Serial Number [id number] [facility] Serial Number [id number] [facility] Thresh RA Capture Amplitude (volts) 0.75 V [facility] Thresh RA Capture Duration (ms) 0.4 ms [facility] Thresh RA Sensing Amplitude (mvolts) 0.625 mV [facility] Thresh RV Capture Amplitude (volts) 0.875 V [facility] Thresh RV Capture Duration (ms) 0.4 ms [facility] Thresh RV Sensing Amplitude (mvolts) 12 mV [facility] Tracking Rate (bpm) 120 {beats}/min [facility] PROGRESSon 03-08-2019 PROGRESS HNO ID: [id number] Author: Sheree Logan (Rt) Manolo Elaine Service: Radiology Author Type: Corral Boss Type: Progress Notes Filed: 03/08/2019 2:55 PM [...] RT Echo March 08, 2019 2:55 PM [facility] XR CHEST 2V FRONTAL/LATon [...] mm nodule right lung base. 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 However, the mobile MRI scanner was not capable of performing the needed MR angiographic sequences. All charges related to the examination was canceled. IMPRESSION: Nondiagnostic MRA study as noted with all charges canceled. The study is to be rescheduled at [facility] Vital Signs Date Time Vital Sign Value Performing Clinician Jabari rogers 05-10-2025 11:34-0500 Body temperature 97.4 [degF] Deysi Collazo [employer] ALIGN[employer] SPECIALIST-C Work Phone: [facility] 05-10-2025 11:34-0500 Diastolic blood pressure 97 mm[Hg] Deysi Collazo NP-C Work Phone: [facility] 05-10-2025 11:34-0500 Heart rate 84 /min Deysi Collazo NP-C Work Phone: [facility] 05-10-2025 11:34-0500 Respiratory rate 18 /min Deysi Haagen [employer] AL[employer] SPECIALIST-C Work Phone: [phone] [place] [address] 05-10-2025 11:34-0500 Systolic blood pressure 149 mm[Hg] Deysi Haagen [employer] WHE[employer] ALIGNMENT SPECIALIST-C Work Phone: [phone] [place] [address] 05-07-2025 07:36-0500 Body mass index (BMI) [Ratio] 24 kg/m2 Deysi Haagen [employer] AL[employer] SPECIALIST-C Work Phone: 4([phone])778-929020 [place] [address] 05-07-2025 07:36-0500 Body weight 61.68 kg Deysi Haagen [employer] ALIGN[employer] SPECIALIST-C Work Phone: 7(255)740-608020 [place] [address] 05-07-2025 07:36-0500 Diastolic blood pressure 78 mm[Hg] Deysi Haagen [employer] WHE[employer] ALIGNMENT SPECIALIST-C Work Phone: 7(491)850-978320 [place] [address] 05-07-2025 07:36-0500 Heart rate 86 /min Deysi Haagen [employer] WHE[employer] ALIGNMENT SPECIALIST-C Work Phone: 3(215)130-757220 [place] [address] 05-07-2025 07:36-0500 Respiratory rate 18 /min Deysi Haagen [employer] ALIGNMENT SPECIALIST-C Work Phone: [phone] [place] [address] 05-07-2025 07:36-0500 SaO2% (BldA) [Mass fraction] 98 % Deysi Haagen [employer] ALIGNMENT SPECIALIST-C Work Phone: 9([phone] [place] [address] 05-07-2025 07:36-0500 Systolic blood pressure 137 mm[Hg] Deysi Haagen [employer] WHE[employer] ALIGNMENT SPECIALIST-C Work Phone: 6(527)341-971620 [place] [address] 05-03-2025 11:15-0400 Body temperature 98.1 [degF] Deysi Haagen [employer] WHE[employer] ALIGNMENT SPECIALIST-C Work Phone: 4(580)[phone] [place] [address] 05-03-2025 11:15-0400 Diastolic blood pressure 81 mm[Hg] Deysi Haagen [employer] WHE[employer] ALIGNMENT SPECIALIST-C Work Phone: 2(004)[phone] [place] [address] 05-03-2025 11:15-0400 Heart rate 98 /min Deysi Haagen [employer] ALIGNMENT SPECIALIST-C Work Phone: [phone])064-909020 [place] [address] 05-03-2025 11:15-0400 Respiratory rate 17 /min Deysi Haagen [employer] WHE[employer] ALIGNMENT SPECIALIST-C Work Phone: [phone])[phone] [place] [address] 05-03-2025 11:15-0400 Systolic blood pressure 148 mm[Hg] Deysi Haagen [employer] WHE[employer] ALIGNMENT SPECIALIST-C Work Phone: [phone](071)[phone] [place] [address] 04-24-2025 15:30-0400 Body height 160.02 cm Deysi Haagen [employer] WHE[employer] ALIGNMENT SPECIALIST-C Work Phone: [phone] [place] [address] 04-24-2025 15:30-0400 Body mass index (BMI) [Ratio] 24.3 kg/m2 Deysi Haagen [employer] ALIGNMENT SPECIALIST-C Work Phone: 1(958)337-781720 [place] [address] 04-24-2025 15:30-0400 Body temperature 97.5 [degF] Deysi Haagen [employer] WHE[employer] ALIGNMENT SPECIALIST-C Work Phone: 9(823)313-113620 [place] [address] 04-24-2025 15:30-0400 Body weight 62.36 kg Deysi Haagen [employer] WHE[employer] ALIGNMENT SPECIALIST-C Work Phone: 6(173)646-314120 [place] [address] 04-24-2025 15:30-0400 Diastolic blood pressure 73 mm[Hg] Deysi Haagen [employer] WHE[employer] ALIGNMENT SPECIALIST-C Work Phone: 9(441)651-573320 [place] [address] 04-24-2025 15:30-0400 Heart rate 83 /min Deysi Haagen [employer] ALIGNMENT SPECIALIST-C Work Phone: 5(546)888-574220 [place] [address] 04-24-2025 15:30-0400 Respiratory rate 16 /min Deysi Haagen [employer] ALIGNMENT SPECIALIST-C Work Phone: 0(120)840-624720 [place] [address] 04-24-2025 15:30-0400 SaO2% (BldA) [Mass fraction] 95 % Deysi Haagen [employer] WHE[employer] ALIGNMENT SPECIALIST-C Work Phone: 2(904)606-630320 [place] [address] 04-24-2025 15:30-0400 Systolic blood pressure 152 mm[Hg] Deysi Haagen [employer] WHE[employer] ALIGNMENT SPECIALIST-C Work Phone: 2(738)298-853720 [place] [address] 03-29-2025 11:05-0400 Body temperature 98.2 [degF] Deysi Haagen [employer] WHE[employer] ALIGNMENT SPECIALIST-C Work Phone: 5(331)293-630220 [place] [address] 03-29-2025 11:05-0400 Diastolic blood pressure 67 mm[Hg] Deysi Haagen [employer] WHE[employer] ALIGNMENT SPECIALIST-C Work Phone: 3(849)617-350420 [place] [address] 03-29-2025 11:05-0400 Heart rate 89 /min Deysi Haagen [employer] ALIGNMENT SPECIALIST-C Work Phone: 9(972)725-391620 [place] [address] 03-29-2025 11:05-0400 Respiratory rate 16 /min Deysi Haagen [employer] WHE[employer] ALIGNMENT SPECIALIST-C Work Phone: 0(191)011-147420 [place] [address] 03-29-2025 11:05-0400 SaO2% (BldA) [Mass fraction] 100 % Deysi Haagen [employer] WHE[employer] ALIGNMENT SPECIALIST-C Work Phone: 2(764)667-373120 [place] [address] 03-29-2025 11:05-0400 Systolic blood pressure 145 mm[Hg] Deysi Haagen [employer] WHE[employer] ALIGNMENT SPECIALIST-C Work Phone: 9(368)787-845620 [place] [address] 03-27-2025 16:35-0400 Body temperature 96.9 [degF] Deysi Haagen [employer] WHE[employer] ALIGNMENT SPECIALIST-C Work Phone: 0(797)136-399320 [place] [address] 03-27-2025 16:35-0400 Diastolic blood pressure 48 mm[Hg] Deysi Haagen [employer] WHE[employer] ALIGNMENT SPECIALIST-C Work Phone: 6(008)256-614820 [place] [address] 03-27-2025 16:35-0400 Heart rate 74 /min Deysi Haagen [employer] ALIGNMENT SPECIALIST-C Work Phone: 4(474)974-725320 [place] [address] 03-27-2025 16:35-0400 Respiratory rate 16 /min Deysi Haagen [employer] WHE[employer] ALIGNMENT SPECIALIST-C Work Phone: 3(639)951-834220 [place] [address] 03-27-2025 16:35-0400 SaO2% (BldA) [Mass fraction] 100 % Deysi Haagen [employer] WHE[employer] ALIGNMENT SPECIALIST-C Work Phone: 7(499)567-977120 [place] [address] 03-27-2025 16:35-0400 Systolic blood pressure 144 mm[Hg] Deysi Haagen [employer] WHE[employer] ALIGNMENT SPECIALIST-C Work Phone: 8(105)640-208120 [place] [address] 03-27-2025 14:21-0400 Body height 160.02 cm Deysi Haagen [employer] WHE[employer] ALIGNMENT SPECIALIST-C Work Phone: 2(794)787-125120 [place] [address] 03-27-2025 14:21-0400 Body mass index (BMI) [Ratio] 23.3 kg/m2 Deysi Haagen [employer] ALIGN[employer] SPECIALIST-C Work Phone: 5(082)827-899220 [place] [address] 03-27-2025 14:21-0400 Body weight 59.87 kg Deysi Haagen [employer] ALIGNMENT SPECIALIST-C Work Phone: 4(805)287-885920 [place] [address] 03-22-2025 03:56-0400 Body temperature 98 [degF] Deysi Haagen [employer] ALIGNMENT SPECIALIST-C Work Phone: 6(540)459-316820 [place] [address] 03-22-2025 03:56-0400 Diastolic blood pressure 65 mm[Hg] Deysi Haagen [employer] WHE[employer] ALIGNMENT SPECIALIST-C Work Phone: 6(074)724-350320 [place] [address] 03-22-2025 03:56-0400 Heart rate 81 /min Deysi Haagen [employer] ALIGNMENT SPECIALIST-C Work Phone: 1(413)826-702620 [place] [address] 03-22-2025 03:56-0400 Respiratory rate 18 /min Deysi Haagen [employer] WHE[employer] ALIGNMENT SPECIALIST-C Work Phone: 9(443)593-301320 [place] [address] 03-22-2025 03:56-0400 SaO2% (BldA) [Mass fraction] 99 % Deysi Haagen [employer] WHE[employer] ALIGNMENT SPECIALIST-C Work Phone: 1(606)765-888520 [place] [address] 03-22-2025 03:56-0400 Systolic blood pressure 161 mm[Hg] Deysi Haagen [employer] WHE[employer] ALIGNMENT SPECIALIST-C Work Phone: 2(331)252-872620 [place] [address] 03-22-2025 03:36-0400 Body height 160.02 cm Deysi Haagen [employer] WHE[employer] ALIGNMENT SPECIALIST-C Work Phone: 7(587)918-989320 [place] [address] 03-22-2025 03:36-0400 Body mass index (BMI) [Ratio] 24.9 kg/m2 Deysi Haagen [employer] WHE[employer] ALIGNMENT SPECIALIST-C Work Phone: 5(231)439-942920 [place] [address] 03-22-2025 03:36-0400 Body weight 63.8 kg Deysi Haagen [employer] WHE[employer] ALIGNMENT SPECIALIST-C Work Phone: 4(405)002-866720 [place] [address] 03-20-2025 12:20-0400 Body temperature 97.2 [degF] Deysi Haagen [employer] WHE[employer] ALIGNMENT SPECIALIST-C Work Phone: 5(526)764-981320 [place] [address] 03-20-2025 12:20-0400 Diastolic blood pressure 56 mm[Hg] Deysi Haagen [employer] WHE[employer] ALIGNMENT SPECIALIST-C Work Phone: 6(758)246-539420 [place] [address] 03-20-2025 12:20-0400 Heart rate 82 /min Deysi Haagen [employer] ALIGNMENT SPECIALIST-C Work Phone: 9(272)946-521120 [place] [address] 03-20-2025 12:20-0400 Respiratory rate 16 /min Deysi Haagen [employer] WHE[employer] ALIGNMENT SPECIALIST-C Work Phone: 1(694)180-675520 [place] [address] 03-20-2025 12:20-0400 SaO2% (BldA) [Mass fraction] 100 % Deysi Haagen [employer] WHE[employer] ALIGNMENT SPECIALIST-C Work Phone: 4(947)347-765920 [place] [address] 03-20-2025 12:20-0400 Systolic blood pressure 125 mm[Hg] Deysi Haagen [employer] WHE[employer] ALIGNMENT SPECIALIST-C Work Phone: 9(866)104-243020 [place] [address] 03-20-2025 09:24-0400 Body mass index (BMI) [Ratio] 22.8 kg/m2 Deysi Haagen [employer] WHE[employer] ALIGNMENT SPECIALIST-C Work Phone: 5(104)562-285120 [place] [address] 03-20-2025 09:24-0400 Body weight 58.51 kg Deysi Haagen [employer] WHE[employer] ALIGNMENT SPECIALIST-C Work Phone: 1(502)031-903520 [place] [address] 03-15-2025 11:36-0400 Body temperature 96.4 [degF] Deysi Haagen [employer] WHE[employer] ALIGNMENT SPECIALIST-C Work Phone: 0(703)046-791220 [place] [address] 03-15-2025 11:36-0400 Diastolic blood pressure 57 mm[Hg] Deysi Haagen [employer] WHE[employer] ALIGNMENT SPECIALIST-C Work Phone: 4(208)626-893620 [place] [address] 03-15-2025 11:36-0400 Heart rate 87 /min Deysi Haagen [employer] ALIGNMENT SPECIALIST-C Work Phone: 0(798)726-719520 [place] [address] 03-15-2025 11:36-0400 Respiratory rate 14 /min Deysi Haagen [employer] ALIGNMENT SPECIALIST-C Work Phone: 5(375)748-923920 [place] [address] 03-15-2025 11:36-0400 Systolic blood pressure 133 mm[Hg] Deysi Haagen [employer] WHE[employer] ALIGNMENT SPECIALIST-C Work Phone: 1(123)102-908191 [place] [address] 03-13-2025 14:06-0400 Body height 160.02 cm Deysi Collazo [employer] WHE[employer] ALIGNMENT SPECIALIST-C Work Phone: 9(848)107-191091 [place] [address] 03-13-2025 14:06-0400 Body mass index (BMI) [Ratio] 23.6 kg/m2 Deysi Haagen [employer] WHE[employer] ALIGNMENT SPECIALIST-C Work Phone: 7(824)638-949320 [place] [address] 03-13-2025 14:06-0400 Body temperature 96.6 [degF] Deysi Haagen [employer] WHE[employer] ALIGNMENT SPECIALIST-C Work Phone: 8(836)775-815320 [place] [address] 03-13-2025 14:06-0400 Body weight 60.55 kg Deysi Haagen [employer] WHE[employer] ALIGNMENT SPECIALIST-C Work Phone: 7(172)603-626220 [place] [address] 03-13-2025 14:06-0400 Diastolic blood pressure 71 mm[Hg] Deysi Haagen [employer] WHE[employer] ALIGNMENT SPECIALIST-C Work Phone: 0(691)328-944120 [place] [address] 03-13-2025 14:06-0400 Heart rate 91 /min Deysi Haagen [employer] WHE[employer] ALIGNMENT SPECIALIST-C Work Phone: 8(423)164-484620 [place] [address] 03-13-2025 14:06-0400 Respiratory rate 16 /min Deysi Haagen [employer] ALIGNMENT SPECIALIST-C Work Phone: 6(611)147-576620 [place] [address] 03-13-2025 14:06-0400 SaO2% (BldA) [Mass fraction] 93 % Deysi Haagen [employer] WHE[employer] ALIGNMENT SPECIALIST-C Work Phone: 4(779)422-988820 [place] [address] 03-13-2025 14:06-0400 Systolic blood pressure 152 mm[Hg] Deysi Haagen [employer] WHE[employer] ALIGNMENT SPECIALIST-C Work Phone: 0(675)939-070320 [place] [address] 03-08-2025 09:53-0400 Body temperature 96.8 [degF] Deysi Haagen AUT[employer] WHE[employer] ALIGNMENT SPECIALIST-C Work Phone: 3(792)574-645920 [place] [address] 03-08-2025 09:53-0400 Diastolic blood pressure 40 mm[Hg] Deysi Haagen [employer] WHE[employer] ALIGNMENT SPECIALIST-C Work Phone: 2(476)280-384620 [place] [address] 03-08-2025 09:53-0400 Heart rate 75 /min Deysi Haagen AUTO WHE[employer] ALIGNMENT SPECIALIST-C Work Phone: [facility] 03-08-2025 09:53-0400 Respiratory rate 18 /min Deysi Haagen [employer]O WHE[employer] ALIGNMENT SPECIALIST-C Work Phone: [facility] 03-08-2025 09:53-0400 Systolic blood pressure 145 mm[Hg] Deysi Haagen AUTO WHE[employer] ALIGNMENT SPECIALIST-C Work Phone: [facility] 03-01-2025 09:12-0400 Body temperature 97.1 [degF] Deysi Haagen [employer]O WHE[employer] ALIGNMENT SPECIALIST-C Work Phone: 6(961)084-628320 [place] [address] 03-01-2025 09:12-0400 Diastolic blood pressure 65 mm[Hg] Deysi Haagen [employer] WHE[employer] ALIGNMENT SPECIALIST-C Work Phone: 6(451)719-210020 [place] [address] 03-01-2025 09:12-0400 Heart rate 79 /min Deysi Haagen [employer] ALIGNMENT SPECIALIST-C Work Phone: 3(179)734-533720 [place] [address] 03-01-2025 09:12-0400 Respiratory rate 18 /min Deysi Haagen [employer] ALIGNMENT SPECIALIST-C Work Phone: 6(471)193-659020 [place] [address] 03-01-2025 09:12-0400 Systolic blood pressure 125 mm[Hg] Deysi Haagen [employer] WHE[employer] ALIGNMENT SPECIALIST-C Work Phone: 8(306)874-582020 [place] [address] 02-16-2025 17:24-0400 Body temperature 98 [degF] Deysi Haagen [employer] WHE[employer] ALIGNMENT SPECIALIST-C Work Phone: 3(252)573-436720 [place] [address] 02-16-2025 17:24-0400 Diastolic blood pressure 72 mm[Hg] Deysi Haagen [employer] WHE[employer] ALIGNMENT SPECIALIST-C Work Phone: 5(355)449-891320 [place] [address] 02-16-2025 17:24-0400 Heart rate 75 /min Deysi Haagen [employer] ALIGN[employer] SPECIALIST-C Work Phone: 6(392)011-630120 [place] [address] 02-16-2025 17:24-0400 Respiratory rate 19 /min Deysi Haagen [employer] ALIGN[employer] SPECIALIST-C Work Phone: 5(784)616-629620 [place] [address] 02-16-2025 17:24-0400 SaO2% (BldA) [Mass fraction] 100 % Deysi Haagen [employer] WHE[employer] ALIGNMENT SPECIALIST-C Work Phone: 3(606)676-354520 [place] [address] 02-16-2025 17:24-0400 Systolic blood pressure 154 mm[Hg] Deysi Haagen [employer] WHE[employer] ALIGNMENT SPECIALIST-C Work Phone: 5(552)918-507120 [place] [address] 02-16-2025 12:09-0400 Body mass index (BMI) [Ratio] 25.8 kg/m2 Deysi Haagen [employer] ALIGN[employer] SPECIALIST-C Work Phone: 8(706)038-698620 [place] [address] 02-16-2025 12:09-0400 Body weight 66.22 kg Deysi Haagen [employer] ALIGNMENT SPECIALIST-C Work Phone: 3(636)926-147520 [place] [address] 02-16-2025 11:26-0400 Body height 160.02 cm Deysi Haagen [employer] WHE[employer] ALIGNMENT SPECIALIST-C Work Phone: 9(480)499-068120 [place] [address] 02-16-2025 11:26-0400 Inhaled oxygen flow rate 2 L/min Deysi Haagen [employer] ALIGN[employer] SPECIALIST-C Work Phone: 8(140)487-149920 [place] [address] 02-05-2025 08:57-0400 Body height 160.02 cm Deysi Haagen [employer] ALIGN[employer] SPECIALIST-C Work Phone: 5(094)401-036220 [place] [address] 02-05-2025 08:57-0400 Body mass index (BMI) [Ratio] 24.7 kg/m2 Deysi Haagen [employer] ALIGN[employer] SPECIALIST-C Work Phone: 3(622)440-438220 [place] [address] 02-05-2025 08:57-0400 Body weight 63.5 kg Deysi Haagen [employer] ALIGNMENT SPECIALIST-C Work Phone: 5(481)282-698720 [place] [address] 02-05-2025 08:57-0400 Diastolic blood pressure 64 mm[Hg] Deysi Haagen [employer] WHE[employer] ALIGNMENT SPECIALIST-C Work Phone: 8(944)120-690620 [place] [address] 02-05-2025 08:57-0400 Heart rate 77 /min Deysi Haagen [employer] ALIGNMENT SPECIALIST-C Work Phone: 2(052)096-299520 [place] [address] 02-05-2025 08:57-0400 Respiratory rate 16 /min Deysi Haagen [employer] ALIGN[employer] SPECIALIST-C Work Phone: 3(892)850-074720 [place] [address] 02-05-2025 08:57-0400 Systolic blood pressure 143 mm[Hg] Deysi Haagen [employer] ALIGNMENT SPECIALIST-C Work Phone: 4(554)836-489991 [place] [address] 01-11-2025 10:44-0400 Heart rate 71 /min Deysi Haagen [employer] ALIGN[employer] SPECIALIST-C Work Phone: 6(510)456-008420 [place] [address] 01-11-2025 08:59-0400 Body temperature 98.1 [degF] Deysi Haagen [employer] ALIGNMENT SPECIALIST-C Work Phone: 7(691)360-815120 [place] [address] 01-11-2025 08:59-0400 Diastolic blood pressure 55 mm[Hg] Deysi Haagen [employer] ALIGN[employer] SPECIALIST-C Work Phone: 3(046)302-637320 [place] [address] 01-11-2025 08:59-0400 Respiratory rate 18 /min Deysi Haagen [employer] ALIGN[employer] SPECIALIST-C Work Phone: 7(521)788-897120 [place] [address] 01-11-2025 08:59-0400 SaO2% (BldA) [Mass fraction] 100 % Deysi Haagen [employer] ALIGNMENT SPECIALIST-C Work Phone: 0(497)755-206120 [place] [address] 01-11-2025 08:59-0400 Systolic blood pressure 153 mm[Hg] Deysi Haagen [employer] WHE[employer] ALIGNMENT SPECIALIST-C Work Phone: 7(095)898-542820 [place] [address] 01-11-2025 05:50-0400 Body mass index (BMI) [Ratio] 28 kg/m2 Deysi Haagen [employer] WHE[employer] ALIGNMENT SPECIALIST-C Work Phone: 4(403)890-534420 [place] [address] 01-11-2025 05:50-0400 Body weight 71.8 kg Deysi Haagen [employer] ALIGNMENT SPECIALIST-C Work Phone: 9(148)603-423820 [place] [address] 01-08-2025 10:03-0400 Body height 160.02 cm Deysi Haagen [employer] ALIGNMENT SPECIALIST-C Work Phone: 1(742)971-961020 [place] [address] 01-07-2025 17:11-0400 Diastolic blood pressure 66 mm[Hg] Deysi Haagen [employer] ALIGNMENT SPECIALIST-C Work Phone: 7(854)924-697120 [place] [address] 01-07-2025 17:11-0400 Heart rate 75 /min Deysi Haagen [employer] ALIGN[employer] SPECIALIST-C Work Phone: 5(826)424-335520 [place] [address] 01-07-2025 17:11-0400 Respiratory rate 16 /min Deysi Haagen [employer] WHE[employer] ALIGNMENT SPECIALIST-C Work Phone: [facility] 01-07-2025 17:11-0400 SaO2% (BldA) [Mass fraction] 100 % Deysi Collazo [employer] ALIGNMENT SPECIALIST-C Work Phone: [facility] 01-07-2025 17:11-0400 Systolic blood pressure 154 mm[Hg] Deysigladys Collazo [employer] WHE[employer] ALIGNMENT SPECIALIST-C Work Phone: [facility] 01-07-2025 16:28-0400 Body temperature 97.7 [degF] Deysigladys Collazo [employer] ALIGNMENT SPECIALIST-C Work Phone: [facility] 01-07-2025 13:27-0400 Body mass index (BMI) [Ratio] 27.5 kg/m2 Deysi Hadon [employer] ALIGNMENT SPECIALIST-C Work Phone: [facility] 01-07-2025 13:27-0400 Body weight 70.48 kg Deysi Collazo [employer] ALIGNMENT SPECIALIST-C Work Phone: [facility] 01-07-2025 12:47-0400 Body height 160.02 cm Deysi Hadon [employer] WHE[employer] ALIGNMENT SPECIALIST-C Work Phone: [facility] 01-01-2025 10:29-0400 Body height 157.5 cm Carla Burdick MD Work Phone: [facility] 01-01-2025 10:29-0400 Body mass index (BMI) [Ratio] 27.18 kg/m2 Carla Burdick MD Work Phone: [facility] 01-01-2025 10:29-0400 Body weight 67.41 kg Carla Burdick MD Work Phone: [facility] 01-01-2025 10:29-0400 Diastolic blood pressure 60 mm[Hg] Carla Burdick MD Work Phone: [facility] 01-01-2025 10:29-0400 Heart rate 84 /min Carla Burdick MD Work Phone: [facility] 01-01-2025 10:29-0400 Respiratory rate 18 /min Carla Burdick MD Work Phone: [facility] 01-01-2025 10:29-0400 SaO2% (BldA) [Mass fraction] 100 % Carla Burdick MD Work Phone: [facility] 01-01-2025 10:29-0400 Systolic blood pressure 156 mm[Hg] Carla Burdick MD Work Phone: [facility] 12-20-2024 08:29-0400 Body mass index (BMI) [Ratio] 27.18 kg/m2 Lars Silva DO Work Phone: [facility] 12-20-2024 08:29-0400 Body weight 67.4 kg Lars Silva DO Work Phone: [facility] 12-20-2024 08:29-0400 Diastolic blood pressure 75 mm[Hg] Lars Silva DO Work Phone: [facility] 12-20-2024 08:29-0400 Heart rate 77 /min Lars Silva DO Work Phone: [facility] 12-20-2024 08:29-0400 SaO2% (BldA) [Mass fraction] 100 % Lars Silva DO Work Phone: [facility] 12-20-2024 08:29-0400 Systolic blood pressure 154 mm[Hg] Lars Silva DO Work Phone: [facility] 12-19-2024 11:38-0400 Diastolic blood pressure 54 mm[Hg] Albin Aurin FACS TEACHER.TWISTHAND Work Phone: [facility] Comment on above: post IV lasix 12-19-2024 11:38-0400 Systolic blood pressure 157 mm[Hg] Albin Aurin FACS TEACHER.TWISTHAND Work Phone: [facility] Comment on above: post IV lasix 12-19-2024 10:56-0400 Body mass index (BMI) [Ratio] 26.34 kg/m2 Albin Aurin FACS TEACHER.TWISTHAND Work Phone: [facility] 12-19-2024 10:56-0400 Body weight 65.32 kg Albin Gu FACS TEACHER.TWISTHAND Work Phone: [facility] 12-19-2024 10:56-0400 Heart rate 79 /min Albin Gu FACS TEACHER.TWISTHAND Work Phone: [facility] 12-19-2024 10:56-0400 SaO2% (BldA) [Mass fraction] 99 % Albin Gu FACS TEACHER.TWISTHAND Work Phone: [facility] 11-20-2024 08:06-0400 Body height 157.5 cm Carla Burdick MD Work Phone: [facility] 11-20-2024 08:06-0400 Body mass index (BMI) [Ratio] 26.3 kg/m2 Carla Burdick MD Work Phone: [facility] 11-20-2024 08:06-0400 Body weight 65.23 kg Carla Burdick MD Work Phone: [facility] 11-20-2024 08:06-0400 Diastolic blood pressure 62 mm[Hg] Carla Burdick MD Work Phone: [facility] 11-20-2024 08:06-0400 Heart rate 84 /min aCrla Burdick MD Work Phone: [facility] 11-20-2024 08:06-0400 Respiratory rate 12 /min Carla Burdick MD Work Phone: [facility] 11-20-2024 08:06-0400 SaO2% (BldA) [Mass fraction] 99 % Carla Burdick MD Work Phone: [facility] 11-20-2024 08:06-0400 Systolic blood pressure 154 mm[Hg] Carla Burdick MD Work Phone: [facility] 11-06-2024 15:03-0400 Body height 157.5 cm Carla Burdick MD Work Phone: [facility] 11-06-2024 15:03-0400 Body mass index (BMI) [Ratio] 27.8 kg/m2 Carla Burdick MD Work Phone: [facility] 11-06-2024 15:03-0400 Body weight 68.95 kg Carla Burdick MD Work Phone: [facility] 11-06-2024 15:03-0400 Diastolic blood pressure 54 mm[Hg] Carla Burdick MD Work Phone: [facility] 11-06-2024 15:03-0400 Heart rate 68 /min Carla Burdick MD Work Phone: [facility] 11-06-2024 15:03-0400 Respiratory rate 12 /min Carla Burdick MD Work Phone: [facility] 11-06-2024 15:03-0400 SaO2% (BldA) [Mass fraction] 100 % Carla Burdick MD Work Phone: [facility] 11-06-2024 15:03-0400 Systolic blood pressure 134 mm[Hg] Carla Burdick MD Work Phone: [facility] 11-03-2024 10:06-0400 Diastolic blood pressure 44 mm[Hg] Albin Aurin FACS TEACHER.TWISTHAND Work Phone: [facility] 11-03-2024 10:06-0400 Systolic blood pressure 121 mm[Hg] Albin Aurin FACS TEACHER.TWISTHAND Work Phone: [facility] 11-03-2024 08:56-0400 Body mass index (BMI) [Ratio] 26.89 kg/m2 Albin Aurin FACS TEACHER.TWISTHAND Work Phone: [facility] 11-03-2024 08:56-0400 Body weight 66.68 kg Albin Aurin FACS TEACHER.TWISTHAND Work Phone: [facility] 11-03-2024 08:56-0400 Heart rate 66 /min Albin Aurin FACS TEACHER.TWISTHAND Work Phone: [facility] 11-03-2024 08:56-0400 SaO2% (BldA) [Mass fraction] 100 % Albin Aurin FACS TEACHER.TWISTHAND Work Phone: [facility] 10-31-2024 11:09-0400 Body mass index (BMI) [Ratio] 25.97 kg/m2 Shaye Domingo APRN.TWISTHAND Work Phone: [facility] 10-31-2024 11:09-0400 Body weight 64.41 kg Shaye Domingo APRN.TWISTHAND Work Phone: [facility] 10-31-2024 11:09-0400 Diastolic blood pressure 68 mm[Hg] Shaye Domingo APRN.TWISTHAND Work Phone: [facility] 10-31-2024 11:09-0400 Heart rate 84 /min Shaye Domingo FACS TEACHER.TWISTHAND Work Phone: [facility] 10-31-2024 11:09-0400 Systolic blood pressure 147 mm[Hg] Shaye Domingo FACS TEACHER.TWISTHAND Work Phone: [facility] 04-07-2024 09:30-0400 Body mass index (BMI) [Ratio] 25.06 kg/m2 Albin Gu APRN.TWISTHAND Work Phone: [facility] 04-07-2024 09:30-0400 Body weight 62.14 kg Albin Gu FACS TEACHER.TWISTHAND Work Phone: [facility] 04-07-2024 09:30-0400 Diastolic blood pressure 47 mm[Hg] Albin Gu FACS TEACHER.TWISTHAND Work Phone: [facility] 04-07-2024 09:30-0400 Heart rate 91 /min Albin Gu APRN.TWISTHAND Work Phone: [facility] 04-07-2024 09:30-0400 SaO2% (BldA) [Mass fraction] 98 % Albin Quinteroin FACS TEACHER.TWISTHAND Work Phone: [facility] 04-07-2024 09:30-0400 Systolic blood pressure 142 mm[Hg] Albin Gu FACS TEACHER.TWISTHAND Work Phone: [facility] 01-17-2024 09:50-0400 Body height 157.5 cm Carla Burdick MD Work Phone: [facility] 01-17-2024 09:50-0400 Body mass index (BMI) [Ratio] 26.92 kg/m2 Carla Burdick MD Work Phone: [facility] 01-17-2024 09:50-0400 Body weight 66.77 kg Carla Burdick MD Work Phone: [facility] 01-17-2024 09:50-0400 Diastolic blood pressure 59 mm[Hg] Carla Burdick MD Work Phone: [facility] 01-17-2024 09:50-0400 Heart rate 64 /min Carla Burdick MD Work Phone: [facility] 01-17-2024 09:50-0400 SaO2% (BldA) [Mass fraction] 99 % Carla Burdick MD Work Phone: [facility] 01-17-2024 09:50-0400 Systolic blood pressure 157 mm[Hg] Carla Burdick MD Work Phone: [facility] 12-07-2023 11:46-0400 Diastolic blood pressure 76 mm[Hg] Deysi Haagen FACS TEACHER.TWISTHAND Work Phone: [facility] 12-07-2023 11:46-0400 Heart rate 68 /min Deysi Haagen FACS TEACHER.TWISTHAND Work Phone: [facility] 12-07-2023 11:46-0400 Respiratory rate 16 /min Deysi Haagen FACS TEACHER.TWISTHAND Work Phone: [facility] 12-07-2023 11:46-0400 SaO2% (BldA) [Mass fraction] 97 % Deysi Haagen FACS TEACHER.TWISTHAND Work Phone: [facility] 12-07-2023 11:46-0400 Systolic blood pressure 128 mm[Hg] Deysi Haagen FACS TEACHER.TWISTHAND Work Phone: [facility] 11-25-2023 10:42-0400 Diastolic blood pressure 37 mm[Hg] Albin Gu FACS TEACHER.TWISTHAND Work Phone: [facility] 11-25-2023 10:42-0400 Systolic blood pressure 160 mm[Hg] Albin Quinteroin FACS TEACHER.TWISTHAND Work Phone: [facility] 11-25-2023 10:00-0400 Body mass index (BMI) [Ratio] 26.89 kg/m2 Albin Aurin FACS TEACHER.[employer] Work Phone: [facility] 11-25-2023 10:00-0400 Body weight 66.68 kg Albin Aurin FACS TEACHER.[employer] Work Phone: [facility] 11-25-2023 10:00-0400 Heart rate 60 /min Albin Aurin FACS TEACHER.[employer] Work Phone: [facility] 11-25-2023 10:00-0400 SaO2% (BldA) [Mass fraction] 98 % Albin Quinteroin FACS TEACHER.[employer] Work Phone: [facility] 11-22-2023 09:09-0400 Body mass index (BMI) [Ratio] 27.44 kg/m2 Deysi Collazo FACS TEACHER.[employer] Work Phone: [facility] 11-22-2023 09:09-0400 Body weight 68.04 kg Deysi Collazo FACS TEACHER.[employer] Work Phone: [facility] 11-22-2023 09:09-0400 Diastolic blood pressure 76 mm[Hg] Deysi Haagen FACS TEACHER.[employer] Work Phone: [facility] 11-22-2023 09:09-0400 Heart rate 67 /min Deysi Haagen FACS TEACHER.[employer] Work Phone: [facility] 11-22-2023 09:09-0400 Respiratory rate 16 /min Deysi Haagen FACS TEACHER.[employer] Work Phone: [facility] 11-22-2023 09:09-0400 SaO2% (BldA) [Mass fraction] 98 % Deysi Collazo FACS TEACHER.TWISTHAND Work Phone: [facility] 11-22-2023 09:09-0400 Systolic blood pressure 128 mm[Hg] Deysi Haagen FACS TEACHER.TWISTHAND Work Phone: [facility] 11-08-2023 16:36-0400 Body mass index (BMI) [Ratio] 29.98 kg/m2 Bere Boykin FACS TEACHER.TWISTHAND Work Phone: [facility] 11-08-2023 16:36-0400 Body weight 73.17 kg Bere Boykin FACS TEACHER.C AUTO WHEEL ALIGNMENT SPECIALIST Work Phone: [facility] 11-08-2023 16:36-0400 Diastolic blood pressure 70 mm[Hg] Bere Boykin FACS TEACHER.TWISTHAND Work Phone: [facility] 11-08-2023 16:36-0400 Heart rate 94 /min Bere Boykin FACS TEACHER.C AUTO WHEEL ALIGNMENT SPECIALIST Work Phone: [facility] 11-08-2023 16:36-0400 SaO2% (BldA) [Mass fraction] 95 % Bere Boykin FACS TEACHER.TWISTHAND Work Phone: [facility] 11-08-2023 16:36-0400 Systolic blood pressure 156 mm[Hg] Bere Boykin FACS TEACHER.TWISTHAND Work Phone: [facility] 11-04-2023 08:08-0400 Body mass index (BMI) [Ratio] 29.74 kg/m2 NA Le PA-C Work Phone: [facility] 11-04-2023 08:08-0400 Body weight 72.58 kg NA Le PA-C Work Phone: [facility] 11-04-2023 08:08-0400 Diastolic blood pressure 70 mm[Hg] NA Le PA-C Work Phone: [facility] 11-04-2023 08:08-0400 Heart rate 88 /min NA Le PA-C Work Phone: [facility] 11-04-2023 08:08-0400 Respiratory rate 20 /min NA Le PA-C Work Phone: [facility] 11-04-2023 08:08-0400 SaO2% (BldA) [Mass fraction] 97 % NA El PA-C Work Phone: [facility] 11-04-2023 08:08-0400 Systolic blood pressure 130 mm[Hg] NA Le PA-C Work Phone: [facility] 10-18-2023 13:11-0400 Diastolic blood pressure 76 mm[Hg] NA Le PA-C Work Phone: [facility] 10-18-2023 13:11-0400 Systolic blood pressure 144 mm[Hg] NA Le PA-C Work Phone: [facility] 10-18-2023 13:04-0400 Body weight 75.48 kg NA Le PA-C Work Phone: [facility] 10-18-2023 13:04-0400 Heart rate 90 /min NA Le PA-C Work Phone: [facility] 10-18-2023 13:04-0400 Respiratory rate 20 /min NA Le PA-C Work Phone: [facility] 10-18-2023 13:04-0400 SaO2% (BldA) [Mass fraction] 99 % NA Le PA-C Work Phone: [facility] 10-14-2023 14:40-0400 Diastolic blood pressure 73 mm[Hg] Lars Silva DO Work Phone: [facility] 10-14-2023 14:40-0400 Heart rate 85 /min Lars Silva DO Work Phone: [facility] 10-14-2023 14:40-0400 SaO2% (BldA) [Mass fraction] 97 % Lars Silva DO Work Phone: [facility] 10-14-2023 14:40-0400 Systolic blood pressure 153 mm[Hg] Lars Silva DO Work Phone: [facility] 07-05-2023 11:19-0500 Body temperature 98.49 [degF] Bijan Cole MD Work Phone: [facility] 07-05-2023 11:19-0500 Body weight 71.31 kg Bijan Cole MD Work Phone: [facility] 07-05-2023 11:19-0500 Diastolic blood pressure 80 mm[Hg] Bijan Cole MD Work Phone: [facility] 07-05-2023 11:19-0500 Heart rate 90 /min Bijan Cole MD Work Phone: [facility] 07-05-2023 11:19-0500 Respiratory rate 20 /min Bijan Cole MD Work Phone: [facility] 07-05-2023 11:19-0500 SaO2% (BldA) [Mass fraction] 98 % Bijan Cole MD Work Phone: [facility] 07-05-2023 11:19-0500 Systolic blood pressure 158 mm[Hg] Bijan Cole MD Work Phone: [facility] 01-07-2023 08:44-0400 Body weight 65.77 kg NA Le PA-C Work Phone: [facility] 01-07-2023 08:44-0400 Diastolic blood pressure 72 mm[Hg] NA Le PA-C Work Phone: [facility] 01-07-2023 08:44-0400 Heart rate 70 /min NA Le PA-C Work Phone: [facility] 01-07-2023 08:44-0400 Respiratory rate 16 /min NA Le PA-C Work Phone: [facility] 01-07-2023 08:44-0400 SaO2% (BldA) [Mass fraction] 96 % NA Le PA-C Work Phone: [facility] 01-07-2023 08:44-0400 Systolic blood pressure 136 mm[Hg] NA Le PA-C Work Phone: [facility] 10-06-2022 09:13-0400 Body weight 66.22 kg NA Le PA-C Work Phone: [facility] 10-06-2022 09:13-0400 Diastolic blood pressure 68 mm[Hg] NA Le PA-C Work Phone: [facility] 10-06-2022 09:13-0400 Heart rate 81 /min NA Le PA-C Work Phone: [facility] 10-06-2022 09:13-0400 Respiratory rate 18 /min NA Le PA-C Work Phone: [facility] 10-06-2022 09:13-0400 SaO2% (BldA) [Mass fraction] 96 % NA Le PA-C Work Phone: [facility] 10-06-2022 09:13-0400 Systolic blood pressure 144 mm[Hg] NA Le PA-C Work Phone: [facility] 09-28-2022 09:15-0400 Body height 156.2 cm Carla Burdick MD Work Phone: [facility] 09-28-2022 09:15-0400 Body weight 68.4 kg Carla Burdick MD Work Phone: [facility] 09-28-2022 09:15-0400 Diastolic blood pressure 74 mm[Hg] Carla Burdick MD Work Phone: [facility] 09-28-2022 09:15-0400 Heart rate 78 /min Carla Burdick MD Work Phone: [facility] 09-28-2022 09:15-0400 Systolic blood pressure 128 mm[Hg] Carla Burdick MD Work Phone: [facility] 07-07-2022 08:56-0500 Body weight 65.32 kg NA Le PA-C Work Phone: [facility] 07-07-2022 08:56-0500 Diastolic blood pressure 62 mm[Hg] NA Le PA-C Work Phone: [facility] 07-07-2022 08:56-0500 Heart rate 74 /min NA Le PA-C Work Phone: [facility] 07-07-2022 08:56-0500 Respiratory rate 16 /min NA Le PA-C Work Phone: [facility] 07-07-2022 08:56-0500 SaO2% (BldA) [Mass fraction] 97 % NA Le PA-C Work Phone: [facility] 07-07-2022 08:56-0500 Systolic blood pressure 148 mm[Hg] NA Le PA-C Work Phone: [facility] 05-14-2022 09:27-0500 Body temperature 98.91 [degF] Sonny Lund MD Work Phone: [facility] 05-14-2022 09:27-0500 Body weight 68.49 kg Sonny Lund MD Work Phone: [facility] 05-14-2022 09:27-0500 Diastolic blood pressure 72 mm[Hg] Sonny Lund MD Work Phone: [facility] 05-14-2022 09:27-0500 Heart rate 84 /min Sonny Lund MD Work Phone: [facility] 05-14-2022 09:27-0500 Respiratory rate 16 /min Sonny Lund MD Work Phone: [facility] 05-14-2022 09:27-0500 SaO2% (BldA) [Mass fraction] 98 % Sonny Lund MD Work Phone: [facility] 05-14-2022 09:27-0500 Systolic blood pressure 147 mm[Hg] Sonny Lund MD Work Phone: [facility] 04-28-2022 09:09-0400 Body temperature 97.3 [degF] Treatment Wstr Work Phone: [facility] 04-28-2022 09:09-0400 Diastolic blood pressure 62 mm[Hg] Treatment Wstr Work Phone: [facility] 04-28-2022 09:09-0400 Heart rate 83 /min Treatment Wstr Work Phone: [facility] 04-28-2022 09:09-0400 Systolic blood pressure 122 mm[Hg] Treatment Wstr Work Phone: [facility] 04-22-2022 10:54-0400 Body temperature 97.11 [degF] Treatment Wstr Work Phone: [facility] 04-22-2022 10:54-0400 Diastolic blood pressure 68 mm[Hg] Treatment Wstr Work Phone: [facility] 04-22-2022 10:54-0400 Heart rate 102 /min Treatment Wstr Work Phone: [facility] 04-22-2022 10:54-0400 Systolic blood pressure 135 mm[Hg] Treatment Wstr Work Phone: [facility] 04-20-2022 09:30-0400 Body temperature 97.9 [degF] Treatment Wstr Work Phone: [facility] 04-20-2022 09:30-0400 Diastolic blood pressure 61 mm[Hg] Treatment Wstr Work Phone: [facility] 04-20-2022 09:30-0400 Heart rate 98 /min Treatment Wstr Work Phone: [facility] 04-20-2022 09:30-0400 Systolic blood pressure 130 mm[Hg] Treatment Wstr Work Phone: [facility] 04-17-2022 15:31-0400 Body temperature 98.1 [degF] Treatment Wstr Work Phone: [facility] 04-17-2022 15:31-0400 Diastolic blood pressure 66 mm[Hg] Treatment Wstr Work Phone: [facility] 04-17-2022 15:31-0400 Heart rate 97 /min Treatment Wstr Work Phone: [facility] 04-17-2022 15:31-0400 SaO2% (BldA) [Mass fraction] 99 % Treatment Wstr Work Phone: [facility] 04-17-2022 15:31-0400 Systolic blood pressure 137 mm[Hg] Treatment Wstr Work Phone: [facility] 04-09-2022 11:33-0400 Body height 161.3 cm Brayan Chicas MD Work Phone: [facility] 04-09-2022 11:33-0400 Body weight 67.59 kg Brayan Chicas MD Work Phone: [facility] 04-06-2022 10:44-0400 Body weight 66.68 kg NA Le PA-C Work Phone: [facility] 04-06-2022 10:44-0400 Diastolic blood pressure 72 mm[Hg] NA Le PA-C Work Phone: [facility] 04-06-2022 10:44-0400 Heart rate 95 /min NA Le PA-C Work Phone: [facility] 04-06-2022 10:44-0400 Respiratory rate 24 /min NA Le PA-C Work Phone: [facility] 04-06-2022 10:44-0400 SaO2% (BldA) [Mass fraction] 99 % NA Le PA-C Work Phone: [facility] 04-06-2022 10:44-0400 Systolic blood pressure 148 mm[Hg] NA Le PA-C Work Phone: [facility] 03-30-2022 08:49-0400 Body weight 65.32 kg Carla Burdick MD Work Phone: [facility] 03-30-2022 08:49-0400 Diastolic blood pressure 64 mm[Hg] Carla Burdick MD Work Phone: [facility] 03-30-2022 08:49-0400 Heart rate 90 /min Carla Burdick MD Work Phone: [facility] 03-30-2022 08:49-0400 SaO2% (BldA) [Mass fraction] 100 % Carla Burdick MD Work Phone: [facility] 03-30-2022 08:49-0400 Systolic blood pressure 144 mm[Hg] Carla Burdick MD Work Phone: [facility] 03-19-2022 11:07-0400 Body weight 69.85 kg NA Le PA-C Work Phone: [facility] 03-19-2022 11:07-0400 Diastolic blood pressure 66 mm[Hg] NA Le PA-C Work Phone: [facility] 03-19-2022 11:07-0400 Heart rate 112 /min NA Le PA-C Work Phone: [facility] 03-19-2022 11:07-0400 Respiratory rate 24 /min NA Le PA-C Work Phone: [facility] 03-19-2022 11:07-0400 SaO2% (BldA) [Mass fraction] 97 % NA Le PA-C Work Phone: [facility] 03-19-2022 11:07-0400 Systolic blood pressure 148 mm[Hg] NA Le PA-C Work Phone: [facility] 03-03-2022 13:45-0400 Body height 160 cm Radha Brian FACS TEACHER.TWISTHAND Work Phone: [facility] 03-03-2022 13:45-0400 Body weight 63.5 kg Radha Brian FACS TEACHER.TWISTHAND Work Phone: [facility] 03-03-2022 13:45-0400 Diastolic blood pressure 72 mm[Hg] Radha Brian FACS TEACHER.TWISTHAND Work Phone: [facility] 03-03-2022 13:45-0400 Heart rate 98 /min Radha Brian FACS TEACHER.TWISTHAND Work Phone: [facility] 03-03-2022 13:45-0400 Systolic blood pressure 141 mm[Hg] Radha Brian FACS TEACHER.TWISTHAND Work Phone: [facility] 03-03-2022 13:00-0400 Diastolic blood pressure 62 mm[Hg] Transes[facility] 03-03-2022 13:00-0400 Heart rate 105 /min [facility] 03-03-2022 13:00-0400 SaO2% (BldA) [Mass fraction] 94 % Trans[facility] 03-03-2022 13:00-0400 Systolic blood pressure 129 mm[Hg] [facility] 03-03-2022 12:50-0400 Respiratory rate 12 /min [facility] 03-03-2022 10:56-0400 Body temperature 97.5 [degF] [facility] 02-20-2022 09:31-0400 Body weight 64.86 kg NA Le PA-C Work Phone: [facility] 02-20-2022 09:31-0400 Diastolic blood pressure 78 mm[Hg] NA Le PA-C Work Phone: [facility] 02-20-2022 09:31-0400 Heart rate 116 /min NA Le PA-C Work Phone: [facility] 02-20-2022 09:31-0400 Respiratory rate 16 /min NA Le PA-C Work Phone: [facility] 02-20-2022 09:31-0400 SaO2% (BldA) [Mass fraction] 100 % NA Le PA-C Work Phone: [facility] 02-20-2022 09:31-0400 Systolic blood pressure 132 mm[Hg] NA Le PA-C Work Phone: [facility] 01-16-2022 10:26-0400 Body temperature 98.49 [degF] NA Le PA-C Work Phone: [facility] 01-16-2022 10:26-0400 Body weight 64.41 kg NA Le PA-C Work Phone: [facility] 01-16-2022 10:26-0400 Diastolic blood pressure 72 mm[Hg] NA Le PA-C Work Phone: [facility] 01-16-2022 10:26-0400 Heart rate 92 /min NA Le PA-C Work Phone: [facility] 01-16-2022 10:26-0400 Respiratory rate 16 /min NA Le PA-C Work Phone: [facility] 01-16-2022 10:26-0400 SaO2% (BldA) [Mass fraction] 98 % NA Le PA-C Work Phone: [facility] 01-16-2022 10:26-0400 Systolic blood pressure 138 mm[Hg] NA Le PA-C Work Phone: [facility] 01-09-2022 14:25-0400 Diastolic blood pressure 66 mm[Hg] Emilia Diallo MD Work Phone: [facility] 01-09-2022 14:25-0400 Heart rate 95 /min Emilia Diallo MD Work Phone: [facility] 01-09-2022 14:25-0400 SaO2% (BldA) [Mass fraction] 99 % Emilia Diallo MD Work Phone: [facility] 01-09-2022 14:25-0400 Systolic blood pressure 133 mm[Hg] Emilia Diallo MD Work Phone: [facility] 01-02-2022 11:15-0400 Diastolic blood pressure 60 mm[Hg] Chai Encinas MD Work Phone: [facility] 01-02-2022 11:15-0400 Heart rate 89 /min Chai Encinas MD Work Phone: [facility] 01-02-2022 11:15-0400 SaO2% (BldA) [Mass fraction] 97 % Chai Encinas MD Work Phone: [facility] 01-02-2022 11:15-0400 Systolic blood pressure 134 mm[Hg] Chai Encinas MD Work Phone: [facility] 01-02-2022 11:00-0400 Respiratory rate 20 /min Chai Encinas MD Work Phone: [facility] 01-02-2022 10:42-0400 Body temperature 97.9 [degF] Chia Encinas MD Work Phone: [facility] 01-02-2022 08:59-0400 Body height 160 cm Chai Encinas MD Work Phone: [facility] 01-02-2022 08:59-0400 Body weight 65.77 kg Chai Encinas MD Work Phone: [facility] 01-01-2022 09:45-0400 Body height 160 cm Chai Encinas MD Work Phone: [facility] 01-01-2022 09:45-0400 Body temperature 97 [degF] Chai Encinas MD Work Phone: [facility] 01-01-2022 09:45-0400 Body weight 65.77 kg Chai Encinas MD Work Phone: [facility] 01-01-2022 09:45-0400 Diastolic blood pressure 52 mm[Hg] Chai Encinas MD Work Phone: [facility] 01-01-2022 09:45-0400 Heart rate 100 /min Chai Encinas MD Work Phone: [facility] 01-01-2022 09:45-0400 SaO2% (BldA) [Mass fraction] 98 % Chai Encinas MD Work Phone: [facility] 01-01-2022 09:45-0400 Systolic blood pressure 122 mm[Hg] Chai Encinas MD Work Phone: [facility] 12-30-2021 13:16-0400 Body temperature 96.9 [degF] [facility] Work Phone: 12-30-2021 13:16-0400 Diastolic blood pressure 54 mm[Hg] [facility] Work Phone: 12-30-2021 13:16-0400 Heart rate 73 /min [facility] Work Phone: 12-30-2021 13:16-0400 Respiratory rate 16 /min [facility] Work Phone: 12-30-2021 13:16-0400 SaO2% (BldA) [Mass fraction] 97 % [facility] Work Phone: 12-30-2021 13:16-0400 Systolic blood pressure 113 mm[Hg] [facility] Work Phone: 12-30-2021 08:17-0400 Body height 160.02 cm [facility] Work Phone: 12-15-2021 09:08-0400 Body temperature 98.2 [degF] NA Le PA-C Work Phone: [facility] 12-15-2021 09:08-0400 Body weight 66.04 kg NA Le PA-C Work Phone: [facility] 12-15-2021 09:08-0400 Diastolic blood pressure 64 mm[Hg] NA Le PA-C Work Phone: [facility] 12-15-2021 09:08-0400 Heart rate 97 /min NA Le PA-C Work Phone: [facility] 12-15-2021 09:08-0400 Respiratory rate 18 /min NA Le PA-C Work Phone: [facility] 12-15-2021 09:08-0400 SaO2% (BldA) [Mass fraction] 99 % NA Le PA-C Work Phone: [facility] 12-15-2021 09:08-0400 Systolic blood pressure 118 mm[Hg] NA Le PA-C Work Phone: [facility] 11-26-2021 09:54-0400 Body height 160 cm Na Ramirez APRN.CN P Work Phone: [facility] 11-26-2021 09:54-0400 Body weight 65.77 kg Na Ramirez APRN.CN P Work Phone: [facility] 01-19-2019 10:25-0400 BMI (Body Mass Index) 28.62 kg/m2 [facility] 01-19-2019 10:25-0400 Body weight 72.12 kg [facility] 01-19-2019 10:25-0400 BP Diastolic 64 mm[Hg] [facility] 01-19-2019 10:25-0400 BP Systolic 134 mm[Hg] [facility] 01-19-2019 10:25-0400 Height 158.8 cm [facility] [employer] [facility] 01-19-2019 10:25-0400 Pulse (Heart Rate) 100 /min [facility] 01-19-2019 10:25-0400 Pulse Oximetry 99 % [facility] 01-19-2019 10:25-0400 Respiratory Rate 16 /min [facility] Encounters Encounter Date Encounter Type Care Provider Facility Start: 05-10-2025 ambulatory Vincent [facility] Start: 05-07-2025 End: 05-07-2025 ambulatory Vincent Chi Mark Facility:[facility] Start: 05-03-2025 ambulatory Vincent Chi [facility] Start: 05-03-2025 End: 05-04-2025 ambulatory Vincent Chi Mark Facility:[facility] Start: 05-02-2025 End: 05-02-2025 ambulatory Vincent Chi Mark Facility:[facility] Start: 04-24-2025 End: 04-24-2025 Dr. Ric Noriega MD -[facility] Work Phone: Start: 04-24-2025 End: 04-24-2025 ambulatory Deysi Collazo AUT[employer] WHE[employer] ALIGNMENT SPECIALIST-C Work Phone: -[facility] Start: 04-22-2025 End: 04-22-2025 ambulatory Vincent [facility] Mark Facility:[facility] Start: 04-22-2025 End: 04-22-2025 Dr. Yaniv Masters MD -[facility] Work Phone: Start: 04-19-2025 Dr. Javi Abrams -[facility] Start: 04-12-2025 ambulatory Vincent [facility] Start: 04-12-2025 Dr. Ebony Cerrato MD -[facility] Work Phone: Start: 04-05-2025 ambulatory Vincent Chi [facility] Start: 04-05-2025 Dr. Ebony Cerrato MD -[facility] Work Phone: Start: 04-05-2025 Dr. Ebony [facility]err[facility] Work Phone: Start: 04-02-2025 End: 04-02-2025 ambulatory Deysi Haagen [employer] ALIGNMENT SPECIALIST-C Work Phone: -[facility] Start: 04-02-2025 End: 04-02-2025 Dr. Vincent Flores MD -[facility] Start: 04-02-2025 End: 04-02-2025 ambulatory [facility] Facility:[facility] Start: 03-29-2025 End: 04-03-2025 ambulatory Deysi Haagen AUT[employer] ALIGNMENT SPECIALIST-C Work Phone: [facility] Start: 03-29-2025 End: 04-03-2025 Dr. Ebony Cerrato MD [facility] Work Phone: Start: 03-27-2025 Dr. Ric rodriguez MD -[facility] Start: 03-22-2025 End: 03-22-2025 Deysi Haagen [employer] ALIGNMENT SPECIALIST-C Work Phone: -Emergency Department Work Phone: Start: 03-22-2025 End: 03-22-2025 Emergency department patient visit Deysi Haagen [employer] AL[employer]MENT SPECIALIST-C Work Phone: -Emergency Department Start: 03-20-2025 Dr. Ric rodriguez MD -[facility] Start: 03-15-2025 ambulatory Vincent Chi Mark [facility] Start: 03-15-2025 Dr. Ebony Cerrato MD -[facility] Work Phone: Start: 03-13-2025 End: 03-13-2025 Dr. Ric Noriega MD -[facility] Work Phone: Start: 03-13-2025 End: 03-13-2025 ambulatory Deysi Haagen [employer] WHE[employer] ALIGNMENT SPECIALIST-C Work Phone: -[facility] Start: 03-09-2025 ambulatory Vincent Chi Mark Facility:[facility] Start: 03-09-2025 End: 03-09-2025 ambulatory Deysi Haagen [employer] WHE[employer] ALIGNMENT SPECIALIST-C Work Phone: -Laboratory Start: 03-09-2025 End: 03-09-2025 Dr. Vincent Flores MD -Laboratory Work Phone: Start: 03-08-2025 End: 03-09-2025 ambulatory Vincent Chi Mark Facility:[facility] Start: 03-08-2025 Dr. Ebony Cerrato MD -[facility] Work Phone: Start: 03-08-2025 Dr. Ebony Cerrato MD [facility] Work Phone: Start: 03-02-2025 End: 03-02-2025 ambulatory Deysigladys Collazo AUT[employer] WHE[employer] ALIGNMENT SPECIALIST-C Work Phone: -[facility]y [facility]rd Flr Start: 03-02-2025 End: 03-02-2025 Dr. Vincent Flores MD -[facility] Start: 03-01-2025 ambulatory [facility] Start: 03-01-2025 Dr. Ebony Cerrato MD -[facility] Work Phone: Start: 03-01-2025 End: 03-04-2025 Dr. Ebony Cerrato MD [facility] Work Phone: Start: 03-01-2025 End: 03-04-2025 ambulatory Deysi Haagen [employer] ALIGNMENT SPECIALIST-C Work Phone: [facility] Start: 02-27-2025 End: 02-27-2025 ambulatory Deysi Haagen [employer] AL[employer]MENT SPECIALIST-C Work Phone: -[facility]atory [facility]rd Fl[facility] Start: 02-27-2025 End: 02-27-2025 Dr. Vincent Flores MD -[facility] Start: 02-27-2025 End: 02-27-[address] [facility] Facility:[facility] Start: 02-21-2025 End: 02-21-2025 ambulatory Deysi Haagen [employer] AL[employer] SPECIALIST-C Work Phone: -Laboratory Phy [facility] 3rd Flr Start: 02-21-2025 End: 02-21-2025 Dr. Vincent Flores MD -[facility]rd Fl[facility] Start: 02-21-2025 End: 02-21-[address] [facility] Facility:[facility] Start: 02-16-2025 End: 02-16-2025 Dr. Magdy Pang MD -Emergency Department Work Phone: Start: 02-16-2025 End: 02-16-2025 Emergency department patient visit Deysi Haagen [employer] SPECIALIST-C Work Phone: -Emergency Department Work Phone: Start: 02-13-2025 End: 02-13-2025 ambulatory Dyesi Haagen [employer] AL[employer] SPECIALIST-C Work Phone: -Laboratory Start: 02-13-2025 End: 02-13-[address] Vincent Flores MD -Laboratory Work Phone: Start: 02-13-2025 End: 02-13-2025 Dr. Vincent Flores MD -Laboratory Work Phone: Start: 02-13-2025 End: 02-13-2025 ambulatory Vincent Cas Mark Facility:[facility] Start: 02-08-2025 End: 02-08-2025 ambulatory Deysi Haagen [employer] AL[employer] SPECIALIST-C Work Phone: -[facility] Start: 02-08-2025 End: 02-08-2025 Patient encounter procedure Pau Davis -[facility] Work Phone: Start: 02-08-2025 End: 02-08-2025 Dr. Yaniv Masters MD -[facility] Work Phone: Start: 02-05-2025 End: 02-05-[address] Juan Diego Huynh MD -[facility] Work Phone: Start: 02-05-2025 End: 02-05-2025 Dr. Juan Diego Huynh MD -[facility] Work Phone: Start: 02-05-2025 End: 02-05-2025 ambulatory Deysi Copeagen [employer] AL[employer] SPECIALIST-C Work Phone: -[facility] Start: 02-05-2025 End: 02-05-2025 ambulatory Vincent Chi Mark Facility:[facility] Start: 02-01-2025 End: 02-01-2025 ambulatory Deysi Hadon [employer] AL[employer] SPECIALIST-C Work Phone: -[facility]y [facility]rd Fl[facility] Start: 02-01-2025 End: 02-01-[address] Vincent Flores MD -[facility] Start: 02-01-2025 End: 02-01-2025 Dr. Vincent Flores MD -[facility] Fl[facility] Start: 02-01-2025 End: 02-01-2025 ambulatory Vincent Chi Mark Facility:[facility] Start: 01-26-2025 End: 01-30-2025 Refill Carla Burdick MD Work Phone: Cardiology Comment on above: Refill Request Start: 01-23-2025 End: 01-23-2025 ambulatory Deysi Hadon [employer] SPECIALIST-C Work Phone: -Laboratory Start: 01-23-2025 End: 01-23-[address] Jeremy Mcgarry MD -Laboratory Work Phone: Start: 01-23-2025 End: 01-23-2025 Dr. Jeremy Mcgarry MD -Laboratory Work Phone: Start: 01-23-2025 End: 01-23-2025 ambulatory Vincent Chi Mark Facility:[facility] Start: 01-11-2025 Non-patient / Non-visit Dr. Beryl Stovall DO [facility] Work Phone: Start: 01-11-2025 Dr. Dianne sapp [facility] Work Phone: Start: 01-10-2025 Non-patient / Non-visit Dr. Beryl metzger [facility] Work Phone: Start: 01-10-2025 Dr. Dianne sapp [facility] Work Phone: Start: 01-09-2025 Non-patient / Non-visit Dr. Beryl metzger [facility] Work Phone: Start: 01-09-2025 Dr. Dianne sapp [facility] Work Phone: Start: 01-08-2025 Non-patient / Non-visit Dr. Beryl metzger [facility] Work Phone: Start: 01-08-2025 Dr. Dianne sapp [facility] Work Phone: Start: 01-08-2025 ambulatory [facility] Facility :[facility] Start: 01-08-2025 Non-patient / Non-visit [facility]. Jose [facility] Start: 01-08-2025 Dr. Yaniv Masters MD [facility] Start: 01-08-2025 ambulatory Carla Suarez ty:[facility] Start: 01-08-2025 Non-patient / Non-visit Dr. Abundio wells MD -[facility] Start: 01-08-2025 Dr. Abundio Turcios MD [facility] Start: 01-07-2025 End: 01-11-2025 ambulatory Radha Heller Facility:[facility] Start: 01-07-2025 End: 01-11-2025 Evaluation and management [...] Start: 01-01-2025 End: 01-01-2025 ambulatory CARLA BURDICK Facility:[facility] Start: 12-26-2024 End: 12-26-2024 Orders Only Albin Gu APRN.TWISTHAND Work Phone: Cardiology Comment on above: Returning Patient's Call Start: 12-20-2024 End: 02-19-2025 Follow-up encounter Deysi Collazo APRN.CNP Work Phone: [facility] Start: 12-20-2024 End: 12-20-2024 Patient encounter procedure Lars Silva DO Work Phone: Vascular Surgery Comment on above: Superior mesenteric artery stenosis (HCC) (Primary Dx) Start: 12-20-2024 End: 12-20-2024 ambulatory LARS SILVA Facility:[facility] Start: 12-19-2024 End: 12-19-2024 Patient encounter procedure Albin Gu APRN.CNP Work Phone: Cardiology Comment on above: Chronic diastolic co ngestive heart failure (HCC) (Primary Dx); Primary hypertension; SSS (sick sinus syndrome) (HCC); Longstanding persistent atrial fibrillation (HCC) Start: 12-19-2024 End: 12-19-2024 ambulatory ALBIN GU Facility:[facility] Start: 12-13-2024 End: 12-13-2024 Telephone encounter Deysi Collazo APRN.CNP Work Phone: [facility] Comment on above: Transition Of Care Start: 12-11-2024 End: 12-11-2024 Telephone encounter Deysi Collazo APRN.TWISTHAND Work Phone: [address] [place] [address] Start: 12-10-2024 End: 12-12-2024 Evaluation and management of inpatient [facility] Facility:[facility] Start: 12-01-2024 End: 12-01-2024 ambulatory CARLA BURDICK Facility:[facility] Start: 11-20-2024 End: 11-20-2024 Patient encounter procedure Carla Burdick MD Work Phone: Cardiology Comment on above: History of prostheti c aortic valve replacement (Primary Dx); Chronic diastolic (congestive) heart failure (HCC); Ascending aorta dilatation; Longstanding persistent atrial fibrillation (HCC); PAD (peripheral artery disease); Primary hypertension; Hyperlipidemia with target LDL less than 70; Acute mesenteric ischemia (HCC) Start: 11-20-2024 End: 11-20-2024 ambulatory CARLA BURDICK Facility:[facility] Start: 11-15-2024 End: 11-15-2024 Follow-up encounter Carla Burdick MD Work Phone: [facility] Cardiology [place] Start: 11-13-2024 End: 11-13-2024 ambulatory [facility] Facility:[facility] Start: 11-06-2024 End: 11-06-2024 ambulatory CARLA BURDICK Facility:[facility] Start: 11-06-2024 End: 11-06-2024 Patient encounter procedure [...] 11-03-2024 End: 11-03-2024 Telephone encounter Albin Gu APRN.TWISTHAND Work Phone: Cardiology Comment on above: Results Start: 11-03-2024 End: 11-03-2024 ambulatory ALBIN GU Facility:[facility] Start: 11-03-2024 End: 11-03-2024 Patient encounter procedure Albin Gu APRN.TWISTHAND Work Phone: Cardiology Comment on above: Chronic diastolic co ngestive heart failure (HCC) (Primary Dx); Primary hypertension; SSS (sick sinus syndrome) (HCC); Longstanding persistent atrial fibrillation (HCC); Stage 3b chronic kidney disease (HCC) Start: 11-03-2024 End: 11-03-2024 ambulatory ALBIN GU Facility:[facility] Start: 10-31-2024 End: 12-31-2024 Follow-up encounter Shaye Domingo APRN.CNP Work Phone: [facility] Start: 10-31-2024 End: 10-31-2024 ambulatory SHAYE DOMINGO Facility:[facility] Start: 10-31-2024 End: 10-31-2024 Office outpatient visit 25 minutes Shaye Domingo APRN.CNP Work Phone: [facility] Comment on above: Acute mesenteric isc hemia [...] 10-12-2024 End: 10-12-2024 Telephone encounter Albin Gu APRN.TWISTHAND Work Phone: Cardiology Comment on above: Patient Update Start: 07-31-2024 End: 07-31-2024 Telephone encounter Melida Koo APRN.CNP Work Phone: Cardiology Start: 07-07-2024 End: 07-07-2024 ambulatory DIANNE LE Facility:[facility] Start: 07-07-2024 End: 07-07-2024 ambulatory DIANNE LE Facility:[facility] Start: 04-07-2024 End: 04-07-2024 Patient encounter procedure Albin Gu APRN.CNP Work Phone: Cardiology Comment on above: Chronic diastolic co ngestive heart failure (HCC) (Primary Dx); Primary hypertension; SSS (sick sinus syndrome) (HCC); Longstanding persistent atrial fibrillation (HCC) Start: 04-07-2024 End: 04-07-2024 ambulatory ALBIN GU Facility:[facility] Start: 03-14-2024 End: 03-14-2024 Refill Melida Koo APRN.TWISTHAND Work Phone: Cardiology Start: 02-21-2024 End: 02-21-2024 Telephone encounter Melida Koo APRN.TWISTHAND Work Phone: Cardiology Start: 02-17-2024 ambulatory Carla dempsey MD Work Phone: Cardiology Comment on above: NT Pro BNP Start: 02-15-2024 End: 02-15-2024 ambulatory DIANNE HAASORY LE Facility:[facility] Start: 02-07-2024 Telephone encounter Melida walker APRN.TWISTHAND Work Phone: Cardiology Comment on above: Recheck Chronic diastolic co ngestive heart failure (HCC) (Primary Dx) Start: 02-04-2024 Telephone encounter Albin amaro APRN.TWISTHAND Work Phone: Cardiology Comment on above: Appointment Results Start: 02-03-2024 End: 02-03-2024 ambulatory [facility] Facility:[facility] Start: 01-17-2024 End: 01-17-2024 [facility] Start: 01-17-2024 End: 01-17-2024 Patient encounter procedure [...] Office outpatient visit 15 minutes Deysi Collazo APRN.TWISTHAND Work Phone: [facility] Comment on above: URI, acute (Primary Dx) Start: 11-26-2023 ambulatory Valentine Meneses RN Ambulato ry Care Management Comment on above: YONG SAM RN ( ED Utilization Review per request of payer) Start: 11-25-2023 End: 11-25-2023 Patient encounter procedure Albin Gu APRN.TWISTHAND Work Phone: Cardiology Comment on above: Chronic diastolic co ngestive heart failure (HCC) (Primary Dx); Primary hypertension; SSS (sick sinus syndrome) (HCC); Longstanding persistent atrial fibrillation (HCC); Acute systolic CHF (congestive heart failure) (HCC) Start: 11-23-2023 ambulatory Ralph Foreman O Work Phone: Hematology/Oncology Comment on above: Results Start: 11-22-2023 End: 11-22-2023 Office outpatient visit 25 minutes Deysi Collazo APRN.TWISTHAND Work Phone: [facility] Comment on above: Acute systolic CHF ( congestive heart failure) (HCC) (Primary Dx); Hyponatremia; Hypokalemia Start: 11-19-2023 Telephone encounter Albin amaro APRN.TWISTHAND Work Phone: Cardiology Comment on above: Patient Question Start: 11-17-2023 Telephone encounter Gwen Valentine RN Cardiology Comment on above: Senior Supplier Quality 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 Utilization Review per Payer Request.) Start: 11-15-2023 Telephone encounter Nara Malone RN NOC Comment on above: Transition Of Care Start: 11-12-2023 Orders Only Ying Schmidt son FACS TEACHER.TWISTHAND Work Phone: Cardiology Comment on above: Stage 3 chronic kidn ey disease, unspecified whether stage 3a or 3b CKD (HCC) (Primary Dx) Initial Consult (HEA RT FAILURE [id number] ) Start: 11-08-2023 End: 11-08-2023 Emergency department patient visit Doreen LE Facility:[facility] Start: 11-08-2023 End: 11-08-2023 Patient encounter procedure Bere Boykin APRNBLAIDMIR Work Phone: Cardiology Comment on above: Acute [...] atrial fibrillation (HCC); SSS (sick sinus syndrome) ([facility]); S/P placement of cardiac pacemaker; Acute hip pain, right; Piriformis syndrome, right; Bilateral knee effusions; Primary osteoarthritis of both knees Start: 11-02-2023 ambulatory Doreen de la cruz PA-C Work Phone: [facility] [place] Comment on above: moving forward Start: 11-02-2023 E-mail encounter fro m caregiver Doreen Le PA-C Work Phone: [facility] [place] Start: 11-02-2023 Telephone encounter Doreen Le PA-C Work Phone: [facility] Comment on above: Results; Orders Start: 10-31-2023 Telephone encounter Doreen Le PA-C Work Phone: [facility] [place] Start: 10-19-2023 End: 10-19-2023 Patient encounter procedure Lars Silva DO Work Phone: Vascular Surgery Comment on above: Venous insufficiency (Primary Dx) Start: 10-18-2023 End: 10-18-2023 Subsequent hospital visit by physician [facility] Work Phone: Radiology Comment on above: Acute systolic CHF ( congestive heart failure) ([facility]) [I50.21] Start: 10-18-2023 End: 10-18-2023 Patient encounter procedure Doreen Le PA-C Work Phone: [facility] [place] Comment on above: SSS (sick sinus synd juliana) ([facility]) (Primary Dx); Paroxysmal atrial fibrillation ([facility]); S/P placement of cardiac pacemaker; Chronic combined systolic and diastolic CHF (congestive heart failure) ([facility]); Dilated cardiomyopathy ([facility]); Ascending aorta dilatation ([facility]); Pedro aneurysm of anterior communicating artery; History of pulmonary embolism; Presence of Watchman left atrial appendage closure device; Platelet inhibition due to Plavix; Primary hypertension; Hyperlipidemia with target LDL less than 70; Heme + stool; Epigastric pain; Blood loss anemia; Acute systolic CHF (congestive heart failure) ([facility]); Vitamin D deficiency Start: 10-15-2023 Telephone encounter Carla Burdick MD Work Phone: Cardiology Comment on above: Patient Update Start: 10-14-2023 End: 10-14-2023 Patient encounter procedure Lars Foreman Silva Work Phone: Vascular Surgery Comment on above: Venous insufficiency (Primary Dx) Start: 10-11-2023 Follow-up encounter Yin Joseph MD Work Phone: [facility] Start: 10-11-2023 Pacemaker Remote F/U Yin Joseph MD Work Phone: [facility] Start: 07-05-2023 End: 07-05-2023 Patient encounter procedure Bijan Cole MD Work Phone: [facility] Comment on above: Influenza-like illne ss (Primary Dx) Start: 06-07-2023 ambulatory Doreen de la cruz PA-C Work Phone: [facility] [place] Comment on above: Rt. Foot Bone Fractu re Start: 06-01-2023 End: 06-01-2023 Subsequent hospital visit by physician [facility] Work Phone: Radiology Comment on above: Closed nondisplaced fracture of fifth metatarsal bone of right foot with routine healing, subsequent encounter [S92.354D] Start: 04-30-2023 End: 04-30-2023 Subsequent hospital visit by physician [facility] (I-Stat) Work Phone: Cat Scan Comment on above: Lung nodule, solitar y [R91.1] Start: 04-12-2023 End: 04-12-2023 Subsequent hospital visit by physician [facility] Work Phone: Radiology Comment on above: Pain of right middle finger [A30.314] Start: 03-23-2023 Follow-up encounter Yin Joseph MD Work Phone: [facility] Start: 03-23-2023 Pacemaker Remote F/U Yin Joseph MD Work Phone: [facility] Start: 03-15-2023 Refill Doreen de la [...] ar marcelo stenosis (Primary Dx); Atherosclerosis of minto artery of both lower extremities with intermittent claudication ([facility]); 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[facility]); Pain in both lower legs; Iron 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; Iron malabsorption; S/P placement of cardiac pacemaker; SSS (sick sinus syndrome) ([facility]); Chronic combined systolic and diastolic CHF (congestive heart failure) ([facility]); Dilated cardiomyopathy ([facility]); Ascending aorta dilatation ([facility]); H/O rheumatic heart disease; History [...] Follow-up encounter Yin Joseph MD Work Phone: [facility] Start: 12-22-2022 Pacemaker Remote F/U Yin Joseph MD Work Phone: [facility] Start: 12-10-2022 ambulatory Doreen Biswas ty:[facility] Start: 10-06-2022 End: 10-06-2022 Patient encounter procedure Doreen Le PA-C Work Phone: [facility] Comment on above: S/P placement of car [...] End: 10-05-2022 Subsequent hospital visit by physician [facility] Work Phone: Radiology Comment [...] Follow-up encounter Yin Joseph MD Work Phone: [facility] Start: 09-21-2022 Pacemaker Remote F/U Yin Joseph MD Work Phone: [facility] Start: 08-30-2022 Refill Doreen Dodge on [...] Follow-up encounter Yin Joseph MD Work Phone: [facility] Start: 06-23-2022 Pacemaker Remote F/U Yin Joseph MD Work Phone: [facility] Start: 05-23-2022 Refill Sonny Lund MD Work Phone: Hematology/Oncology Comment on above: Refill Request; Refi ll Request Start: 05-14-2022 End: 05-14-2022 ambulatory Sonny Lund MD Work Phone: Hematology/Oncology Comment on above: Iron deficiency anem ia secondary to inadequate dietary iron intake (Primary Dx); Chronic renal failure, stage 3b (HCC) Start: 05-14-2022 End: 05-14-2022 Patient encounter procedure Sonny Lund MD Work Phone: [facility] Start: 04-28-2022 End: 04-28-2022 [facility] Work Phone: Hematology/Oncology Comment on above: Iron deficiency anem ia secondary to inadequate dietary iron intake (Primary Dx); Iron malabsorption Start: 04-22-2022 Refill Carla dempsey MD Work Phone: Cardiology Comment on above: Refill Request Start: 04-22-2022 End: 04-22-2022 ambulatory Treatment 7 [facility] Work Phone: Hematology/Oncology Comment on above: Iron deficiency anem ia secondary to inadequate dietary iron intake (Primary Dx); Iron malabsorption Start: 04-20-2022 End: 04-20-2022 ambulatory Treatment Rm [facility] Work Phone: Hematology/Oncology Comment on above: Iron deficiency anem ia secondary to inadequate dietary iron intake (Primary Dx); Iron malabsorption Start: 04-17-2022 End: 04-17-2022 ambulatory Treatment Rm 9 [facility] Work Phone: Hematology/Oncology Comment on above: Iron deficiency anem ia secondary to inadequate dietary iron intake (Primary Dx); Iron malabsorption Start: 04-09-2022 Telephone encounter Doreen Le PA-C Work Phone: [facility] [place] Comment on above: Orders Start: 04-09-2022 End: [...] procedure Doreen Le PA-C Work Phone: [facility] [place] Comment on above: Hospital discharge f [...] Telephone encounter Doreen Le PA-C Work Phone: [facility] Comment on above: Hospital Follow Up; Appointment [...] Follow-up encounter Yin Joseph MD Work Phone: [facility] Start: 03-24-2022 Pacemaker Remote F/U Yin Joseph MD Work Phone: [facility] Start: 03-23-2022 Telephone encounter Brianna Betancourt Cardiology Comment on above: Senior Supplier Quality Engineer - O ther (CHF) Start: 03-21-2022 Telephone encounter Juan Diego Carroll MD Work Phone: [place] [facility] Comment on above: Appointment Start: 03-20-2022 Admission to establishment Sheridan manning RN Financial Services Professional Management Comment on above: Transition Of Care ( Tcm readmission) Start: 03-20-2022 ambulatory Sheridan VANEGAS [employer] Start: 03-19-2022 End: 03-19-2022 Patient encounter procedure Doreen Le PA-C Work Phone: [facility] Comment on above: 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); Aortic prosthetic valve regurgitation, subsequent encounter; H/O rheumatic heart disease; Atrial fibrillation, unspecified type (HCC); Presence of Watchman left atrial appendage closure device; Anemia, blood loss; Primary hypertension Start: 03-05-2022 ambulatory Sheridan Cervantes RN [facility] [employer] Comment on above: ABDIEL -; Watchmen Start: 03-05-2022 Follow-up encounter Sheridan Cervantes RN [employer] Professional [employer] Comment on above: Transition Of Care ( Tcm follow up) Start: 03-03-2022 Follow-up encounter Lili Fay MD Work Phone: [facility] Start: 03-03-2022 End: 03-03-2022 Patient encounter procedure Lili Fay MD Work Phone: [facility] Comment on above: Longstanding persist ent atrial fibrillation (HCC) (Primary Dx); Presence of Watchman left atrial appendage closure device Paroxysmal atrial fi brillation (HCC); Presence of Watchman left atrial appendage closure device Start: 03-02-2022 Telephone encounter Saima England RN C ardiology Comment on above: Reminder Call (Trans esophageal Echo 03/03/22) Start: 02-25-2022 Patient Outreach Harika Tomas RN [facility] Comment on above: Transition Of Care ( [facility] D[facility]C 02/24/2023 ) Start: 02-20-2022 End: 02-20-2022 Patient encounter procedure Doreen Le PA-C Work Phone: [facility] Comment on above: Rectal bleeding (Nohemy stacie Dx); Anemia, blood loss; Diarrhea, unspecified type Start: 02-12-2022 Telephone encounter Chai Encinas MD Work Phone: General Surgery Comment on above: Procedure Follow Up (EGD completed on 01/02/2022) Start: 02-09-2022 Orders Only Candi Juarez nd FACS TEACHER.TWISTHAND Work Phone: Cardiology Comment on above: Paroxysmal atrial fi brillation (HCC) (Primary Dx); Presence of Watchman left atrial appendage closure device Start: 01-21-2022 Orders Only Candi Juarez nd FACS TEACHER.TWISTHAND Work Phone: Cardiology Comment on above: Paroxysmal atrial fi brillation (HCC) (Primary Dx) Patient Question (OR YUSUF FOR ABDIEL AND ECG) Start: 01-19-2022 Refill Emilia Domínguez i, MD Work Phone: Cardiology Comment on above: Refill Request Start: 01-16-2022 End: 01-16-2022 Patient encounter procedure Doreen Le PA-C Work Phone: [facility] [place] Comment on above: Atrial fibrillation, unspecified type (HCC) (Primary Dx); Presence of Watchman left atrial appendage closure device; Herpes zoster without complication Start: 01-09-2022 ambulatory Chandler villalobos MD Work Phone: Cardiology Comment on above: Patient Education (E PS-Watchman) Start: 01-09-2022 Follow-up encounter Randy Torrez MD Work Phone: [facility] Start: 01-09-2022 End: 01-09-2022 Patient encounter procedure Randy Torrez MD Work Phone: [facility] Comment on above: Atrial fibrillation, unspecified type (HCC) (Primary Dx); Gastrointestinal hemorrhage, unspecified gastrointestinal hemorrhage type; Anemia due to chronic blood loss; Other fatigue; SOB (shortness of breath) Start: 01-02-2022 End: 01-02-2022 Subsequent hospital visit by physician Chai Encinas MD Work Phone: [facility] Comment on above: Acute blood loss ane miguel [D62] Start: 01-01-2022 Telephone encounter Chai Encinas MD Work Phone: General Surgery Comment on above: 01-02-2022 egd [facility] Start: 01-01-2022 End: 01-01-2022 Patient encounter procedure Chai Encinas MD Work Phone: General Surgery Comment on above: Anemia, blood loss ( Primary Dx); Acute blood loss anemia; Heme + stool; Sludge in gallbladder; Epigastric pain; Duodenal ulcer with hemorrhage Start: 12-30-2021 End: 12-30-2021 Patient encounter procedure [facility] Start: 12-29-2021 Telephone encounter Doreen Le [...] Telephone encounter Doreen Le PA-C Work Phone: [facility] [place] Comment on above: Rectal Problem Start: 12-15-2021 End: 12-15-2021 Subsequent hospital visit by physician [facility] Work Phone: Radiology Comment on above: Ischial bursitis of left side [M70.72] Start: 12-15-2021 End: 12-15-2021 Patient encounter procedure Doreen Le PA-C Work Phone: [facility] [place] Comment on above: Renal mass, right [...] Follow-up encounter Yin Joseph MD Work Phone: [facility] Start: 12-11-2021 Pacemaker Remote F/U Yin Joseph MD Work Phone: [facility] Start: 12-04-2021 Refill Chandler villalobos MD Work Phone: Cardiology Start: 12-03-2021 Telephone encounter Chandler ortiz MD Work Phone: Cardiology Comment on above: Patient Question (ME DICATION QUESTION - XARELTO) Start: 11-27-2021 Orders Only Na Ramirez FACS TEACHER.TWISTHAND Work Phone: Vascular Surgery Comment on above: PAD (peripheral jennifer ry disease) (HCC) (Primary Dx); PVD (peripheral vascular disease) (HCC) Start: 11-26-2021 End: 11-26-2021 Office outpatient visit 25 minutes Na Ramirez FACS TEACHER.TWISTHAND Work Phone: Vascular Surgery Comment on above: PAD (peripheral jennifer ry disease) (HCC) (Primary Dx); Anemia due to chronic illness Start: 10-22-2021 Refill Yin Joseph MD Work Phone: Vascular Surgery Comment on above: Refill Request Start: 09-24-2021 Follow-up encounter Yin Joseph MD Work Phone: [facility] Start: 09-24-2021 Pacemaker Remote F/U Yin Joseph MD Work Phone: [facility] Start: 09-24-2021 Telephone encounter Chai Encinas MD Work Phone: General Surgery Comment on above: Appointment Cancelle d Start: 09-23-2021 Telephone encounter Chandler ortiz MD Work Phone: Cardiology Comment on above: Appointment Reschedu led (Due to change in physician's schedule) Start: 02-14-2021 End: 02-15-2021 ambulatory PROVIDER NOT IN SYSTEM [facility] Start: 01-23-2019 End: 01-23-2019 Refill Lizeth Mabry [facility] Cardiology Start: 01-19-2019 End: 01-19-2019 Office outpatient visit 15 minutes Mars Chung Work Phone: [facility] Cardiology Comment on above: Persistent atrial fi brillation (Primary Dx); detention current use of antiarrhythmic medical therapy; Moderate mitral regurgitation; Status post aortic valve replacement with tissue valve Start: 01-08-2014 End: 09-12-2021 Patient encounter status CARMELINA Le PA-C Work Phone: [facility] Procedures Date Procedure Procedure Detail Performing Clinician Start: 05-02-2025 Mean corpuscular hemoglobin concentration determination Deysi Collazo AUTO WHEEL ALIGNMENT SPECIALIST-C Work Phone: Start: 05-02-2025 Neutrophil count Deysi Collazo AUTO WHEEL ALIGNMENT SPECIALIST-C Work Phone: Start: 05-02-2025 Nucleated red blood cell count procedure Deysi Collazo AUTO WHEEL ALIGNMENT SPECIALIST-C Work Phone: Start: 05-02-2025 Platelet mean volume determination Gilmer Collazo AUTO WHEEL ALIGNMENT SPECIALIST-C Work Phone: Start: 05-02-2025 Vitamin D, 25-hydroxy measurement Gopi Collazo AUTO WHEEL ALIGNMENT SPECIALIST-C Work Phone: Start: 04-24-2025 Immature reticulocyte fraction Deysi hernandez AUTO WHEEL ALIGNMENT SPECIALIST-C Work Phone: Start: 04-24-2025 Mean corpuscular hemoglobin concentration determination Deysi Collazo AUTO WHEEL ALIGNMENT SPECIALIST-C Work Phone: Start: 04-24-2025 Neutrophil count Deysi Collazo AUTO WHEEL ALIGNMENT SPECIALIST-C Work Phone: Start: 04-24-2025 Nucleated red blood cell count procedure Deysi Collazo AUTO WHEEL ALIGNMENT SPECIALIST-C Work Phone: Start: 04-24-2025 Platelet mean volume determination Gilmer Collazo AUTO WHEEL ALIGNMENT SPECIALIST-C Work Phone: Start: 04-24-2025 Total iron binding capacity measurement Deysi Collazo AUTO WHEEL ALIGNMENT SPECIALIST-C Work Phone: Start: 04-02-2025 Bacterial nucleic acid assay Deysi Nickerson gen AUTO WHEEL ALIGNMENT SPECIALIST-C Work Phone: Start: 04-02-2025 Anaerobic microbial culture Deysi Copeag en AUTO WHEEL ALIGNMENT SPECIALIST-C Work Phone: Start: 04-02-2025 Gram stain microscopy Deysi Collazo AUTO WHEEL ALIGNMENT SPECIALIST-C Work Phone: Start: 04-02-2025 End: 04-02-2025 Microbial culture, routine Deysi Copeasiya n AUTO WHEEL ALIGNMENT SPECIALIST-C Work Phone: Start: 03-13-2025 Blood count smear mcrscp w/mnl difrntl wbc count Deysi Collazo AUTO WHEEL ALIGNMENT SPECIALIST-C Work Phone: Start: 03-13-2025 Immature reticulocyte fraction Deysi hernandez AUTO WHEEL ALIGNMENT SPECIALIST-C Work Phone: Start: 03-13-2025 Mean corpuscular hemoglobin concentration determination Deysi Collazo [employer] Work Phone: Start: 03-13-2025 Neutrophil count Deysi Collazo [employer] Work Phone: Start: 03-13-2025 Nucleated red blood cell count procedure Deysi Collazo [employer] Work Phone: Start: 03-13-2025 Platelet mean volume determination Gilmer Collazo [employer]IST[employer] Work Phone: Start: 03-13-2025 Total iron binding capacity measurement Deysi Collazo [employer] Work Phone: Start: 03-09-2025 Blood count smear mcrscp w/mnl difrntl wbc count Deysi Colalzo [employer] Work Phone: Start: 03-09-2025 Mean corpuscular hemoglobin concentration determination Deysi Collazo [employer] Work Phone: Start: 03-09-2025 Neutrophil count Deysi Collazo [employer] Work Phone: Start: 03-09-2025 Nucleated red blood cell count procedure Deysi Collazo [employer] Work Phone: Start: 03-09-2025 Platelet mean volume determination Gilmer Collazo [employer] Work Phone: Start: 03-09-2025 Reactive lymphocyte count Deysi Collazo [employer] Work Phone: Start: 02-27-2025 Urine culture Deysi Collazo [employer] Work Phone: Start: 02-27-2025 Blood count smear mcrscp w/mnl difrntl wbc count Deysi Collazo [employer] Work Phone: Start: 02-27-2025 Mean corpuscular hemoglobin concentration determination Deysi Collazo [employer] Work Phone: Start: 02-27-2025 Neutrophil count Deysi Collazo [employer] Work Phone: Start: 02-27-2025 Nucleated red blood cell count procedure Deysi Collazo [employer] Work Phone: Start: 02-27-2025 Platelet mean volume determination Gilmer Collazo [employer] Work Phone: Start: 02-27-2025 Urine microscopy: red cells Deysi Matthew en [employer]IST[employer] Work Phone: Start: 02-27-2025 Urnls dip stick/tablet reagent auto microscopy Deysi Collazo [employer] Work Phone: Start: 02-21-2025 Blood count smear mcrscp w/mnl difrntl wbc count Deysi Collazo [employer] Work Phone: Start: 02-21-2025 Mean corpuscular hemoglobin concentration determination Deysi Collazo [employer]IST[employer] Work Phone: Start: 02-21-2025 Neutrophil count Deysi Collazo [employer] Work Phone: Start: 02-21-2025 Nucleated red blood cell count procedure Deysi Collazo [employer] Work Phone: Start: 02-21-2025 Platelet mean volume determination Gilmer Collazo [employer] Work Phone: Start: 02-16-2025 Blood count smear mcrscp w/mnl difrntl wbc count Deysi Collazo [employer] Work Phone: Start: 02-16-2025 Estimated creatinine clearance Deysi henleysilke [employer]IST[employer] Work Phone: Start: 02-16-2025 Mean corpuscular hemoglobin concentration determination Deysi Collazo [employer]IST[employer] Work Phone: Start: 02-16-2025 Neutrophil count Deysi Collazo [employer] Work Phone: Start: 02-16-2025 Nucleated red blood cell count procedure Deysi Collazo [employer] Work Phone: Start: 02-16-2025 Platelet mean volume determination Gilmer Collazo [employer]IST[employer] Work Phone: Start: 02-16-2025 X-ray of chest, PA and lateral views Deysi Collazo [employer] Work Phone: Start: 02-13-2025 Osmolality measurement, serum Deysi ochoa [employer] Work Phone: Start: 02-13-2025 Blood count smear mcrscp w/mnl difrntl wbc count Deysi Collazo [employer] Work Phone: Start: 02-13-2025 Mean corpuscular hemoglobin concentration determination Deysi Collazo [employer] Work Phone: Start: 02-13-2025 Neutrophil count Deysi Collazo [employer]IST[employer] Work Phone: Start: 02-13-2025 Nucleated red blood cell count procedure Deysi Collazo [employer] Work Phone: Start: 02-13-2025 Platelet mean volume determination Gilmer Collazo [employer]IST[employer] Work Phone: Start: 02-01-2025 Blood count smear mcrscp w/mnl difrntl wbc count Deysi Collazo [employer] Work Phone: Start: 02-01-2025 Mean corpuscular hemoglobin concentration determination Deysi Collazo [employer] Work Phone: Start: 02-01-2025 Neutrophil count Deysi Collazo [employer] Work Phone: Start: 02-01-2025 Nucleated red blood cell count procedure Deysi Collazo [employer] Work Phone: Start: 02-01-2025 Platelet mean volume determination Gilmer Collazo [employer]IST-[employer] Work Phone: Start: 02-01-2025 Vitamin D, 25-hydroxy measurement Gopi Collazo [employer]IST[employer] Work Phone: Comment on above: Vitamin D StatusDeficiency: <20 ng/mL (5 0nmol/L)Insufficiency: 20-30 ng/mL (50-75 nmol/L)Sufficiency: 30-100 ng/mL (75-250 nmol/L)Toxicity: >100 ng/mL (>250 nmol/L) Start: 01-23-2025 Blood count smear mcrscp w/mnl difrntl wbc count Deysi Collazo NP-[employer] Work Phone: Start: 01-23-2025 Hepatitis C antibody measurement Deysi Collazo NP-[employer] Work Phone: Comment on above: Reactive: Presumptive evidence of antibo dies to HCV. Follow CDC recommendations for supplemental testing.Non-Reactive: Antibodies to HCV were not detected; does not exclude the possibility of exposure to HCVReactive Results are presumptive evidence of antibodies to HCV. Follow CDC recommendations for supplemental testing.Order confirmation testing: HCV Quant by PCR testing - HCVPCR #[id number] Non Reactive: < 0.8 Equivocal: >/= 0.8 to < 1.0 Reactive: >/= 1.0The [facility] requires that a reactive/equivocal HCV antibody result be sent out for confirmation. HCV Quant by PCR testing. Start: 01-23-2025 Mean corpuscular hemoglobin concentration determination Deysi Collazo [employer] Work Phone: Start: 01-23-2025 Neutrophil count Deysi Collazo [employer] Work Phone: Start: 01-23-2025 Nucleated red blood cell count procedure Deysi Collazo [employer] Work Phone: Start: 01-23-2025 Platelet mean volume determination Gilmer Collazo [employer] Work Phone: Start: 01-23-2025 Serum inorganic phosphate measurement Deysi Collazo [employer] SPECIALIST-[employer] Work Phone: Start: 01-23-2025 Total cholesterol:HDL ratio measurement Deysi Collazo NP-[employer] Work Phone: Start: 01-23-2025 Triglycerides measurement [facility] Work Phone: Start: 01-23-2025 Vitamin D, 25-hydroxy measurement Gopi Collazo [employer] Work Phone: Comment on above: Vitamin D StatusDeficiency: <20 ng/mL (5 0nmol/L)Insufficiency: 20-30 ng/mL (50-75 nmol/L)Sufficiency: 30-100 ng/mL (75-250 nmol/L)Toxicity: >100 ng/mL (>250 nmol/L) Start: 01-11-2025 Estimated creatinine clearance Deysi H aagsilke [employer]IST[employer] Work Phone: Start: 01-08-2025 Blood count smear mcrscp w/mnl difrntl wbc count Deysi Collazo [employer]IST[employer] Work Phone: Start: 01-08-2025 Mean corpuscular hemoglobin concentration determination Deysi Collazo [employer]IST[employer] Work Phone: Start: 01-08-2025 Neutrophil count Deysi Collazo [employer]IST[employer] Work Phone: Start: 01-08-2025 Nucleated red blood cell count procedure Deysi Collazo [employer]IST-[employer] Work Phone: Start: 01-08-2025 Platelet mean volume determination Gilmer Collazo [employer]IST-[employer] Work Phone: Start: 01-08-2025 Total cholesterol:HDL ratio measurement Deysi Collazo [employer]IST[employer] Work Phone: Start: 01-08-2025 Triglycerides measurement Deysi Collazo [employer]IST[employer] Work Phone: Start: 01-07-2025 CT angiography of head and neck Deysi Hadon [employer] Work Phone: Start: 01-07-2025 CT of head without contrast Deysi Vipullauren edouard [employer]IST-[employer] Work Phone: Start: 01-07-2025 X-ray of chest, PA and lateral views Deysi Copedon [employer]IST[employer] Work Phone: Start: 01-07-2025 Estimated creatinine clearance Deysi H aagsilke [employer]IST-[employer] Work Phone: Start: 11-08-2023 Ecg routine ecg [...] complete minimum 3 views Doreen Taylor Le PA-[employer] Work Phone: Start: 04-30-2023 Ct thorax w/o contrast material M Haider graham Le PA-C Work Phone: Start: 04-12-2023 Radex fingr minimum 2 views Doreen Taylor Ba [facility] Work Phone: Start: 03-23-2023 PACEMAKER REMOTE CHECK [...] 2d w/wo m-mode rec f-up/lmtd Candi Beauchamp FACS TEACHER.[employer] Work Phone: Start: 01-09-2022 PACEMAKER CLINIC CHECK Randy Glenna Foreman Work Phone: Start: 01-09-2022 Antibody screen [...] DTaP,Tdap,Td Vaccine (3 - Td or Tdap) [facility] Start: 12-12-2025 Complete blood count Hemoglobin/Hematocrit [facility] Start: 12-12-2025 Creatinine measurement Serum Creatinine [facility] Start: 12-11-2025 Complete blood count Hemoglobin/Hematocrit [facility] Start: 12-11-2025 Creatinine measurement Serum Creatinine [facility] Start: 12-11-2025 Hepatitis B screening Urine Albumin:Creatinine Ratio [facility] Start: 11-20-2025 Creatinine measurement Serum Creatinine [facility] Start: 11-13-2025 Creatinine measurement Serum Creatinine [facility] Start: 11-03-2025 BP Controlled (<130/80) BP Controlled (<130/80) [facility] Start: 11-03-2025 Creatinine measurement Serum Creatinine [facility] Start: 10-31-2025 Annual PCP Team Chronic Disease Visit Annual PCP Team Chronic Disease Visit [facility] Start: 10-31-2025 Complete blood count Hemoglobin/Hematocrit [facility] Start: 10-31-2025 Creatinine measurement Serum Creatinine [facility] Start: 10-10-2025 Complete blood count Hemoglobin/Hematocrit [facility] Start: 10-03-2025 Hepatitis B screening Urine Albumin:Creatinine Ratio [facility] Start: 10-02-2025 Hepatitis B surface antibody level LDL Cholesterol [facility] Start: 07-23-2025 Reticulocyte count [facility] Start: 07-07-2025 Annual PCP Team Chronic Disease Visit Annual PCP Team Chronic Disease Visit [facility] Start: 07-07-2025 Anxiety Screening Anxiety Screening [facility] Comment on above: Postponed from 1963 (Declined at t his time) Start: 07-07-2025 Covid-19 Vaccine () Covid-19 Vaccine () [facility] Comment on above: Postponed from 03/05/2024 (Declined at t his time) Start: 07-07-2025 Creatinine measurement Serum Creatinine [facility] Start: 07-07-2025 Hepatitis B screening Urine Albumin:Creatinine Ratio [facility] Start: 05-10-2025 -[facility] Work Phone: Start: 05-07-2025 End: 05-07-2025 -[facility] Work Phone: Start: 05-03-2025 -[facility] Work Phone: Start: 05-03-2025 End: 05-04-2025 -[facility] Work Phone: Start: 05-02-2025 End: 05-02-2025 -Laboratory Phy Office 3rd Flr Start: 04-26-2025 Glaucoma screening Dilated Retinal Exam [facility] Start: 04-22-2025 Hemoglobin A1c measurement HbA1C [facility] Start: 04-03-2025 Hemoglobin A1c measurement HbA1C [facility] Start: 04-02-2025 Source specific culture [facility] Start: 04-02-2025 Anaerobic microbial culture [facility] Start: 04-02-2025 Gram stain microscopy [facility] Start: 04-02-2025 Microbial culture, routine [facility] Start: 04-02-2025 -Laboratory Phy Office 3rd Flr Start: 03-29-2025 -[facility] Work Phone: Start: 03-27-2025 -[facility] Start: 03-26-2025 End: 03-26-2025 Patient encounter procedure 03/26/2025 10:00 AM EDT Office Visit Cardiology [address] [place] [address] Carla Burdick MD [address] [place] [address] 4 month follow up - ECHO prior Cardiology Comment on above: 4 month follow up - ECHO prior Start: 03-22-2025 [facility] Start: 03-19-2025 End: 03-19-2025 Patient encounter procedure 03/19/2025 1:50 PM EDT Office Visit Cardiology [address] [place] [address] ECHO Cardiology Comment on above: ECHO Start: 03-13-2025 CBC W Auto Differential panel - Blood [facility] Start: 03-13-2025 Comprehensive metabolic 2000 panel - Serum or Plasma [facility] Start: 03-13-2025 Erythropoietin (EPO) [Units/volume] in Serum or Plasma [facility] Start: 03-13-2025 Ferritin [Mass/volume] in Serum or Plasma [facility] Start: 03-13-2025 Iron and Iron binding capacity panel - Serum or Plasma [facility] Start: 03-13-2025 Reticulocyte count [facility] Start: 03-13-2025 Vitamin B12 measurement [facility] Start: 03-13-2025 [facility] Start: 03-05-2025 Influenza vaccination Influenza Vaccine (#1) [facility] Start: 02-27-2025 Urine culture [facility] Start: 02-27-2025 [facility] Start: 02-26-2025 End: 02-26-2025 Patient encounter procedure 02/26/2025 2:20 PM EDT Office Visit Cardiology [address] [place] [address] Carla Burdick MD [address] [address] f/u Cardiology Comment on above: f/u Start: 02-16-2025 End: 02-16-2025 [facility] Start: 02-16-2025 [facility] Start: 02-13-2025 Measurement of C-reactive protein using high sensitivity technique [facility] Start: 02-05-2025 End: 02-05-2025 Evaluation of diagnostic study results [facility] Start: 02-02-2025 Creatinine measurement Serum Creatinine [facility] Start: 02-02-2025 Hepatitis B surface antibody level LDL Cholesterol [facility] Start: 01-23-2025 End: 01-23-2025 Patient encounter procedure 01/23/2025 10:00 AM EDT Office Visit Cardiology [address] [place] [address] Albin Gu APRN.[employer] [address] [place] [address] CHF FOLLOW UP Cardiology Comment on above: CHF FOLLOW UP Start: 01-11-2025 Patient discharge [facility] Start: 01-10-2025 End: 01-10-2025 Patient encounter procedure [facility] Comment on above: 6 month follow up (SHABBIR from [facility]) 6 month follow up Start: 01-08-2025 Referral to scrum product owner [facility] Start: 01-08-2025 End: 01-08-2025 [facility] Start: 01-08-2025 Thyroid stimulating hormone measurement [facility] Start: 01-08-2025 Vital signs measurements [facility] Start: 01-08-2025 Cardiac monitoring [facility] Start: 01-08-2025 Catheterization of vein [facility] Start: 01-08-2025 Consultation [facility] Start: 01-08-2025 Elevation of head of bed [facility] Start: 01-08-2025 Exercises [facility] Start: 01-08-2025 Notification of physician [facility] Start: 01-08-2025 Patient referral to dietitian [facility] Start: 01-08-2025 Referral for physical therapy [facility] Start: 01-08-2025 Referral to occupational therapist [facility] Start: 01-08-2025 Referral to service [facility] Start: 01-08-2025 Speech therapy assessment [facility] Start: 01-08-2025 Tobacco use cessation education [facility] Start: 01-07-2025 Following clinical pathway protocol [facility] Start: 01-07-2025 Assessment of risk of venous thromboembolism [facility] Start: 01-07-2025 Care regimes management [facility] Start: 01-07-2025 Elevation of affected extremity [facility] Start: 01-07-2025 Inhalation therapy procedure [facility] Start: 01-07-2025 Insertion of catheter into peripheral vein [facility] Start: 01-07-2025 Measuring intake and output [facility] Start: 01-07-2025 Notification of physician [facility] Start: 01-07-2025 Patient education [facility] Start: 01-07-2025 Providing care according to standard [facility] Start: 01-07-2025 Provision of activity privileges [facility] Start: 01-07-2025 End: 01-07-2025 [facility] Start: 01-07-2025 Verification routine [facility] Start: 01-07-2025 Admission procedure [facility] Start: 01-07-2025 End: 01-07-2025 [facility] Start: 01-04-2025 Hemoglobin A1c measurement HbA1C [facility] Start: 01-01-2025 End: 04-02-2025 Basic metabolic 2000 panel - Serum or Plasma BASIC METABOLIC PANEL Lab Routine Chronic diastolic (congestive) heart failure (HCC) Expected: 01/01/2025, Expires: 04/02/2025 [facility] Comment on above: Expected: 01/01/2025, Expires: Start: 01-01-2025 End: 04-02-2025 Natriuretic peptide.B prohormone N-Terminal [Mass/volume] in Serum or Plasma NT PRO BNP Lab Routine Chronic diastolic (congestive) heart failure (HCC) Expected: 01/01/2025, Expires: 04/02/2025 [facility] Comment on above: Expected: 01/01/2025, Expires: Start: 01-01-2025 End: 01-01-2025 Patient encounter procedure 01/01/2025 11:00 AM EDT Office Visit Cardiology [address] [place] [address] Carla Burdick MD [address] [place] [address] 1 month follow up Cardiology Comment on above: 1 month follow up Start: 12-21-2024 End: 12-21-2024 Patient encounter procedure 12/21/2024 9:00 AM EDT Office Visit Cardiology [address] [place] [address] Albin Gu APRN.[employer] [address] [place], [place] [id number] CHF Cardiology Comment on above: CHF Start: 12-20-2024 End: 12-20-2024 Patient encounter procedure Vascular Surgery Comment on above: MESENTERIC AND HOSPITAL FOLLOW UP Start: 12-19-2024 End: 03-20-2025 Basic metabolic 2000 panel - Serum or Plasma BASIC METABOLIC PANEL Lab Routine Chronic diastolic congestive heart failure (HCC) Expected: 12/19/2024, Expires: 03/20/2025 [facility] Work Phone: Comment on above: Expected: 12/19/2024, Expires: Start: 12-18-2024 End: 12-18-2024 Patient encounter procedure 12/18/2024 11:00 AM EDT Office Visit Cardiology [address] [place] [address] Albin Gu APRN.[employer] [address] [place], [place] [id number] CHF Cardiology Comment on above: CHF Start: 12-11-2024 End: 12-11-2024 Patient encounter procedure 12/11/2024 2:30 PM EDT Office Visit Cardiology [address] [place] [address] Allison Toledo APRN.[employer] [address] [place] [address] follow u Cardiology Comment on above: follow u Start: 12-06-2024 Annual PCP Team Chronic Disease Visit Annual PCP Team Chronic Disease Visit [facility] Start: 12-06-2024 BP Controlled (<130/80) BP Controlled (<130/80) [facility] Start: 12-04-2024 End: 12-04-2024 Patient encounter procedure 12/04/2024 2:00 PM EDT Office Visit Cardiology [address] [place], [place] [id number] Carla Burdick MD [address] [place] [address] [phone] (Fax) 1 month follow up Cardiology Comment on above: 1 month follow up Start: 12-01-2024 Creatinine measurement Serum Creatinine [facility] Start: 11-21-2024 Annual PCP Team Chronic Disease Visit Annual PCP Team Chronic Disease Visit [facility] Start: 11-21-2024 BP Controlled (<130/80) BP Controlled (<130/80) [facility] Start: 11-21-2024 End: 11-21-2024 Patient encounter procedure 11/21/2024 10:00 AM EDT Office Visit Cardiology [address] [place] [address] Albin Gu, FACS TEACHER.[employer] [address] [place] [address] CHF Cardiology Comment on above: CHF Start: 11-20-2024 End: 11-20-2024 Patient encounter procedure 11/20/2024 8:00 AM EDT Office Visit Cardiology [address] [place], [place] [id number] Carla Burdick MD [address] [place] [address] [phone] (Fax) follow up with labs per Dr Burdick's phone note Cardiology Comment on above: follow up with labs per Dr Burdick's da ne note Start: 11-18-2024 Complete blood count Hemoglobin/Hematocrit [facility] Start: 11-18-2024 Creatinine measurement Serum Creatinine [facility] Start: 11-15-2024 End: 02-14-2025 Basic metabolic 2000 panel - Serum or Plasma BASIC METABOLIC PANEL Lab Routine Dyspnea on exertion Chronic diastolic congestive heart failure (HCC) Expected: 11/15/2024, Expires: 02/14/2025 [facility] Work Phone: Comment on above: Expected: 11/15/2024, Expires: Start: 11-15-2024 End: 02-14-2025 Natriuretic peptide.B prohormone N-Terminal [Mass/volume] in Serum or Plasma NT PRO BNP Lab Routine Dyspnea on exertion Chronic diastolic congestive heart failure (HCC) Expected: 11/15/2024, Expires: 02/14/2025 [facility] Comment on above: Expected: 11/15/2024, Expires: Start: 11-15-2024 End: 11-15-2024 ambulatory 11/15/2024 9:00 AM EDT OT/PT/Speech Visit [facility] [address] [place], [place] [id number] Frank Null, PT [address] [place], [place] [id number] Physical deconditioning [R53.81] [facility] Comment on above: Physical deconditioning [R53.81] Start: 11-11-2024 Complete blood count Hemoglobin/Hematocrit [facility] Start: 11-11-2024 Creatinine measurement Serum Creatinine [facility] Start: 11-09-2024 Complete blood count Hemoglobin/Hematocrit [facility] Start: 11-09-2024 Creatinine measurement Serum Creatinine [facility] Start: 11-07-2024 End: 11-07-2024 ambulatory 11/07/2024 10:45 AM EDT OT/PT/Speech Visit [facility] [address] [place], [place] [id number] Adriana Wilson, OTR/L [address] [place], [place] [id number] Physical deconditioning [R53.81] [facility] Comment on above: Physical deconditioning [R53.81] Start: 11-06-2024 End: 11-06-2024 Patient encounter procedure 11/06/2024 2:40 PM EDT Office Visit Cardiology [address] [place] [address] Carla Burdick MD [address] [place] [address] hospital f/u - acute on chronic CHF Cardiology Comment on above: hospital f/u - acute on chronic CHF Start: 11-06-2024 End: 02-05-2025 Basic metabolic 2000 panel - Serum or Plasma BASIC METABOLIC PANEL Lab Routine Chronic diastolic (congestive) heart failure (HCC) Expected: 11/06/2024, Expires: 02/05/2025 [facility] Work Phone: Comment on above: Expected: 11/06/2024, Expires: Start: 11-06-2024 End: 02-05-2025 Natriuretic peptide.B prohormone N-Terminal [Mass/volume] in Serum or Plasma NT PRO BNP Lab Routine Chronic diastolic (congestive) heart failure (HCC) Expected: 11/06/2024, Expires: 02/05/2025 [facility] Comment on above: Expected: 11/06/2024, Expires: Start: 11-03-2024 Annual PCP Team Chronic Disease Visit Annual PCP Team Chronic Disease Visit [facility] Start: 11-03-2024 End: 02-02-2025 Basic metabolic 2000 panel - Serum or Plasma BASIC METABOLIC PANEL Lab Routine Chronic diastolic congestive heart failure (HCC) Expected: 11/03/2024, Expires: 02/02/2025 [facility] Work Phone: Comment on above: Expected: 11/03/2024, Expires: Start: 10-31-2024 Complete blood count Hemoglobin/Hematocrit [facility] Start: 10-31-2024 Creatinine measurement Serum Creatinine [facility] Start: 10-26-2024 End: 10-26-2024 Patient encounter procedure 10/26/2024 9:00 AM EDT Office Visit Cardiology [address] [place] [address] Albin Gu APRN.[employer] [address] [place] [address] I50.32 I10 I49.5 I48.11 Cardiology Comment on above: I50.32 I10 I49.5 I48.11 Start: 10-25-2024 End: 10-25-2024 Patient encounter procedure 10/25/2024 1:30 PM EDT Office Visit [facility]cul[facility] [address], [place] [id number] Bilateral carotid artery stenosis [I65.23] [facility] Comment on above: Bilateral carotid artery stenosis [I65.2 3] Start: 10-24-2024 End: 10-24-2024 Patient encounter procedure 10/24/2024 11:00 AM EDT Office Visit Cardiology [address] [place] [address] Albin Gu APRN.[employer] [address] [place] [address] CHF Cardiology Comment on above: CHF Start: 10-23-2024 End: 10-23-2024 Patient encounter procedure 10/23/2024 2:00 PM EDT [facility] [address] [place], [place] [id number] Deysi Collazo APRN.TWISTHAND [address] [place] [address] Post hospital visit Family Medicine Nancy Comment on above: Post hospital visit Start: 10-17-2024 Annual PCP Team Chronic Disease Visit Annual PCP Team Chronic Disease Visit [facility] Start: 10-17-2024 End: 10-17-2024 Patient encounter procedure Cardiology Comment on above: medtronic ep eval medtronic Start: 10-15-2024 Creatinine measurement Serum Creatinine [facility] Start: 07-05-2024 Advance Directive Discussion Advance Directive Discussion [facility] Start: 07-05-2024 Medicare Advantage Annual Wellness Visit Medicare Advantage Annual Wellness Visit [facility] Start: 06-01-2024 Annual PCP Team Chronic Disease Visit Annual PCP Team Chronic Disease Visit [facility] Start: 06-01-2024 BP Controlled (<130/80) BP Controlled (<130/80) [facility] in Start: 04-16-2024 Glaucoma screening Dilated Retinal Exam [facility] Start: 04-16-2024 Hepatitis C antibody, confirmatory test Dilated Retinal Exam [facility] Start: 04-12-2024 Annual PCP Team Chronic Disease Visit Annual PCP Team Chronic Disease Visit [facility] Start: 04-12-2024 Covid-19 Vaccine () Covid-19 Vaccine () [facility] Comment on above: Postponed from 03/05/2023 (Declined at t his time) Start: 04-12-2024 Shingrix Vaccine (2 of 2) Shingrix Vaccine (2 of 2) [facility] Comment on above: Postponed from 01/03/2019 (Insurance Cov erage) Start: 04-07-2024 Complete blood count Hemoglobin/Hematocrit [facility] Start: 04-07-2024 Creatinine measurement Serum Creatinine [facility] Start: 04-07-2024 Hemoglobin/Hematocrit Hemoglobin/Hematocrit [facility] Start: 04-07-2024 Hepatitis B screening Urine Albumin:Creatinine Ratio [facility] Start: 04-07-2024 Hepatitis B surface antibody level LDL Cholesterol [facility] Start: 04-07-2024 Serum Creatinine Serum Creatinine [facility] Start: 04-07-2024 End: 04-07-2024 Patient encounter procedure 04/07/2024 9:00 AM EDT Office Visit Cardiology [address] [place] [address] Albin Gu APRN.TWISTHAND [address] [place] [address] I50.32 I10 I49.5 I48.11 I50.21 Cardiology Comment on above: I50.32 I10 I49.5 I48.11 I50.21 Start: 04-06-2024 End: 04-06-2024 Patient encounter procedure 04/06/2024 9:00 AM EDT Office Visit Cardiology [address] [place] [address] Albin Gu APRN.TWISTHAND [address] [place] [address] I50.32 I10 I49.5 I48.11 I50.21 Cardiology Comment on above: I50.32 I10 I49.5 I48.11 I50.21 Start: 03-05-2024 Covid-19 Vaccine ( season) Covid-19 Vaccine () [facility] Start: 03-05-2024 Covid-19 Vaccine () Covid-19 Vaccine () [facility] Start: 03-05-2024 Influenza vaccination Influenza Vaccine (#1) [facility] Start: 02-07-2024 End: 05-08-2024 Basic metabolic 2000 panel - Serum or Plasma BASIC METABOLIC PANEL Lab Routine Chronic kidney disease, unspecified CKD stage Expected: 02/07/2024, Expires: 05/08/2024 [facility] Work Phone: Comment on above: Expected: 02/07/2024, Expires: Start: 02-07-2024 End: 05-08-2024 Natriuretic peptide.B prohormone N-Terminal [Mass/volume] in Serum or Plasma NT PRO BNP Lab Routine Chronic diastolic congestive heart failure (HCC) Expected: 02/07/2024, Expires: 05/08/2024 [facility] Work Phone: Comment on above: Expected: 02/07/2024, Expires: 4 Start: 02-07-2024 End: 02-07-2024 Patient encounter procedure 02/07/2024 8:00 AM EDT Office Visit Family Medicine Nancy [address] [place] [address] Doreen Le PA-C [address] [place] [address] 3 month follow up Family Medicine Rufe Comment on above: 3 month follow up Start: 01-17-2024 End: 04-17-2024 Comprehensive metabolic 2000 panel - Serum or Plasma COMPREHENSIVE METABOLIC PANEL Lab Routine Chronic diastolic (congestive) heart failure (HCC) Expected: 01/17/2024, Expires: 04/17/2024 [facility] Comment on above: Expected: 01/17/2024, Expires: Start: 01-17-2024 End: 04-17-2024 Lipid 1996 panel - Serum or Plasma LIPID PANEL BASIC Lab Routine Hyperlipidemia with target LDL less than 70 Expected: 01/17/2024, Expires: 04/17/2024 [facility] Work Phone: Comment on above: Expected: 01/17/2024, Expires: Start: 01-17-2024 End: 04-17-2024 Natriuretic peptide.B prohormone N-Terminal [Mass/volume] in Serum or Plasma NT PRO BNP Lab Routine Chronic diastolic (congestive) heart failure (HCC) Expected: 01/17/2024, Expires: 04/17/2024 [facility] Comment on above: Expected: 01/17/2024, Expires: Start: 01-17-2024 End: 01-17-2024 Patient encounter procedure 01/17/2024 9:20 AM EDT Office Visit Cardiology [address] [address] Carla Burdick MD [address] [id number] 6 month follow up Cardiology Comment on above: 6 month follow up Start: 01-09-2024 Urine microalbumin profile [facility] Start: 01-08-2024 ANNUAL PCP TEAM CHRONIC DISEASE VISIT ANNUAL PCP TEAM CHRONIC DISEASE VISIT [facility] Start: 12-02-2023 End: 03-02-2024 CBC W Auto Differential panel - Blood COMPLETE BLOOD COUNT AND DIFFERENTIAL Lab Routine Borderline anemia Acute systolic congestive heart failure (HCC) Expected: 12/02/2023, Expires: 03/02/2024 [facility] Work Phone: Comment on above: Expected: 12/02/2023, Expires: Start: 12-02-2023 End: 03-02-2024 Iron and Iron binding capacity panel - Serum or Plasma IRON AND TIBC Lab Routine Borderline anemia Expected: 12/02/2023, Expires: 03/02/2024 [facility] Comment on above: Expected: 12/02/2023, Expires: Start: 11-30-2023 End: 11-30-2023 Patient encounter procedure 11/30/2023 11:00 AM EDT Office Visit Cardiology [address] [place], [place] [id number] Albin Gu APRN.TWISTHAND [address] [place], [place] [id number] NEW CHF/post hospitalization Cardiology Comment on above: NEW CHF/post hospitalization Start: 11-25-2023 End: 02-24-2024 Basic metabolic 2000 panel - Serum or Plasma BASIC METABOLIC PANEL Lab Routine Chronic diastolic congestive heart failure (HCC) Expected: 11/25/2023, Expires: 02/24/2024 [facility] Work Phone: Comment on above: Expected: 11/25/2023, Expires: Start: 11-25-2023 End: 11-25-2023 Patient encounter procedure 11/25/2023 10:00 AM EDT Office Visit Cardiology [address], [place] [id number] Albin Gu APRN.TWISTHAND [address] [place], [place] [id number] NEW CHF/post hospitalization Cardiology Comment on above: NEW CHF/post hospitalization Start: 11-24-2023 End: 11-24-2023 ambulatory 11/24/2023 11:00 AM EDT Visit (SP) Office Hematology/Oncology [address] [place] [address] [place] [address] [place] [address] 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] Hematology/Oncology Comment on above: Iron deficiency anemia secondary to inad equate dietary iron intake [D50.8] Start: 11-22-2023 End: 02-21-2024 Renal function 2000 panel - Serum or Plasma RENAL FUNCTION PANEL Lab Routine Hyponatremia Hypokalemia Expected: 11/22/2023, Expires: 02/21/2024 [facility] Work Phone: Comment on above: Expected: 11/22/2023, Expires: Start: 11-22-2023 End: 11-22-2023 Patient encounter procedure 11/22/2023 9:00 AM EDT Office Visit [facility] [address] [place], [place] [phone] Deysi Collazo, FACS TEACHER.TWISTHAND [address] [place], [place] [phone] [facility] Follow up [facility] Comment on above: [facility] Follow up Start: 11-12-2023 End: 02-11-2024 Basic metabolic 2000 panel - Serum or Plasma BASIC METABOLIC PANEL Lab Routine Stage 3 chronic kidney disease, unspecified whether stage 3a or 3b CKD (HCC) Expected: 11/12/2023, Expires: 02/11/2024 [facility] Work Phone: Comment on above: Expected: 11/12/2023, Expires: Start: 11-09-2023 End: 11-09-2023 Patient encounter procedure Vasculary Surgery Comment on above: Carotid artery stenosis, asymptomatic, b ilateral [I65.23] PVD (peripheral vasc ular disease) with claudication (HCC) [I73.9] follow up after test ing Start: 11-08-2023 End: 11-08-2023 Patient encounter procedure 11/08/2023 4:30 PM EDT Office Visit Cardiology [address] [place] [address] Bere Boykin, FACS TEACHER.TWISTHAND [address] [place] [address] Follow up Cardiology Comment on above: Follow up Start: 11-04-2023 End: 11-04-2023 Patient encounter procedure 11/04/2023 8:00 AM EDT Office Visit Family Medicine Nancy [address] [place] [address] Doreen Le PA-C [address] [place] [address] 6 mo follow up Family Medicine Nancy Comment on above: 6 mo follow up Start: 11-02-2023 End: 02-01-2024 Basic metabolic 2000 panel - Serum or Plasma BASIC METABOLIC PANEL Lab Routine Acute systolic congestive heart failure (HCC) Expected: 11/02/2023, Expires: 02/01/2024 [facility] Comment on above: Expected: 11/02/2023, Expires: Start: 10-18-2023 End: 01-17-2024 25-hydroxyvitamin D3 [Mass/volume] in Serum or Plasma VITAMIN D 25 HYDROXY Lab Routine Vitamin D deficiency Expected: 10/18/2023, Expires: 01/17/2024 [facility] Work Phone: Comment on above: Expected: 10/18/2023, Expires: 4 Start: 10-18-2023 End: 01-17-2024 Basic metabolic 2000 panel - Serum or Plasma BASIC METABOLIC PANEL Lab Routine Acute systolic CHF (congestive heart failure) (HCC) Expected: 10/18/2023, Expires: 01/17/2024 [facility] Work Phone: Comment on above: Expected: 10/18/2023, Expires: Start: 10-18-2023 End: 01-17-2024 CBC panel - Blood by Automated count COMPLETE BLOOD COUNT Lab Routine Acute systolic CHF (congestive heart failure) (HCC) Expected: 10/18/2023, Expires: 01/17/2024 [facility] Work Phone: Comment on above: Expected: 10/18/2023, Expires: 4 Start: 10-18-2023 End: 01-17-2024 Natriuretic peptide.B prohormone N-Terminal [Mass/volume] in Serum or Plasma NT PRO BNP Lab Routine Acute systolic CHF (congestive heart failure) (HCC) Expected: 10/18/2023, Expires: 01/17/2024 [facility] Work Phone: Comment on above: Expected: 10/18/2023, Expires: 4 Start: 10-15-2023 End: 01-14-2024 Basic metabolic 2000 panel - Serum or Plasma BASIC METABOLIC PANEL Lab Routine 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) Dilated cardiomyopathy (HCC) Expected: 10/15/2023, Expires: 01/14/2024 [facility] Work Phone: Comment on above: Expected: 10/15/2023, Expires: Start: 10-15-2023 End: 01-14-2024 Natriuretic peptide.B prohormone N-Terminal [Mass/volume] in Serum or Plasma NT PRO BNP Lab Routine 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) Dilated cardiomyopathy (HCC) Expected: 10/15/2023, Expires: 01/14/2024 [facility] Work Phone: Comment on above: Expected: 10/15/2023, Expires: 4 Start: 10-07-2023 ANNUAL PCP TEAM CHRONIC DISEASE VISIT ANNUAL PCP TEAM CHRONIC DISEASE VISIT [facility] Start: 10-07-2023 Hemoglobin A1c measurement HbA1C [facility] Start: 10-07-2023 Hemoglobin A1c/Hemoglobin.total in Blood HbA1C [facility] Start: 10-06-2023 HEMOGLOBIN/HEMATOCRIT HEMOGLOBIN/HEMATOCRIT [facility] Start: 10-06-2023 Hepatitis B surface antibody level LDL CHOLESTEROL [facility] Start: 10-06-2023 SERUM CREATININE SERUM CREATININE [facility] Start: 09-29-2023 BP CONTROLLED (<130/80) BP CONTROLLED (<130/80) [facility] Start: 07-07-2023 ANNUAL PCP TEAM CHRONIC DISEASE VISIT ANNUAL PCP TEAM CHRONIC DISEASE VISIT [facility] Start: 07-05-2023 Advance Directive Discussion Advance Directive Discussion [facility] Start: 07-05-2023 Behavioral Health Screening Behavioral Health Screening [facility] Start: 07-05-2023 Depression Assessment Depression Assessment [facility] Start: 07-03-2023 Hemoglobin A1c/Hemoglobin.total in Blood HBA1C [facility] Start: 05-14-2023 HEMOGLOBIN/HEMATOCRIT HEMOGLOBIN/HEMATOCRIT [facility] Start: 05-14-2023 SERUM CREATININE SERUM CREATININE [facility] Start: 04-15-2023 HEMOGLOBIN/HEMATOCRIT HEMOGLOBIN/HEMATOCRIT [facility] Start: 04-14-2023 Hepatitis C antibody, confirmatory test DILATED RETINAL EXAM [facility] Start: 04-07-2023 End: 06-07-2023 ALBUMIN/CREAT RATIO RND UR ALBUMIN/CREAT RATIO RND UR Lab Routine Type 2 diabetes mellitus with diabetic peripheral angiopathy without gangrene, without long-term current use of insulin (HCC) Expected: 04/07/2023, Expires: 06/07/2023 [facility] Work Phone: Comment on above: Expected: 04/07/2023, Expires: 3 Start: 04-07-2023 End: 06-07-2023 CBC W Auto Differential panel - Blood CBC + DIFF Lab Routine Primary hypertension Gastroesophageal reflux disease without esophagitis Chronic renal failure, stage 3b (HCC) Expected: 04/07/2023, Expires: 06/07/2023 [facility] Work Phone: Comment on above: [...] of insulin (HCC) Expected: 04/07/2023, Expires: 06/07/2023 [facility] Work Phone: Comment on above: Expected: 04/07/2023, Expires: 3 Start: 04-07-2023 End: 06-07-2023 Ferritin [Mass/volume] in Serum or Plasma FERRITIN BLD Lab Routine Iron 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 Expected: 04/07/2023, Expires: 06/07/2023 [facility] Work Phone: Comment on above: Expected: 04/07/2023, Expires: 3 Start: 04-07-2023 End: 06-07-2023 Hemoglobin A1c in Blood HGB A1C Lab Routine Type 2 diabetes mellitus with diabetic peripheral angiopathy without gangrene, without long-term current use of insulin (HCC) Expected: 04/07/2023, Expires: 06/07/2023 [facility] Work Phone: Comment on above: Expected: 04/07/2023, Expires: 3 Start: 04-07-2023 End: 06-07-2023 Iron and Iron binding capacity panel - Serum or Plasma IRON + TIBC Lab Routine 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 Expected: 04/07/2023, Expires: 06/07/2023 [facility] Work Phone: Comment on above: Expected: 04/07/2023, Expires: 3 Start: 04-07-2023 End: 06-07-2023 Lipid 1996 panel - Serum or Plasma LIPID PANEL BASIC Lab Routine Hyperlipidemia with target LDL less than 70 Expected: 04/07/2023, Expires: 06/07/2023 [facility] Work Phone: Comment on above: Expected: 04/07/2023, Expires: 3 Start: 04-06-2023 3 comp foot exam completed DIABETIC FOOT EXAM [facility] Start: 04-06-2023 ANNUAL PCP TEAM CHRONIC DISEASE VISIT ANNUAL PCP TEAM CHRONIC DISEASE VISIT [facility] Start: 04-06-2023 Diabetic foot examination Diabetic Foot Exam [facility] Start: 04-06-2023 HEMOGLOBIN/HEMATOCRIT HEMOGLOBIN/HEMATOCRIT [facility] Start: 04-06-2023 SERUM CREATININE SERUM CREATININE [facility] Start: 03-22-2023 HEMOGLOBIN/HEMATOCRIT HEMOGLOBIN/HEMATOCRIT [facility] Start: 03-22-2023 SERUM CREATININE SERUM CREATININE [facility] Start: 03-21-2023 HEMOGLOBIN/HEMATOCRIT HEMOGLOBIN/HEMATOCRIT [facility] Start: 03-21-2023 SERUM CREATININE SERUM CREATININE [facility] Start: 03-20-2023 HEMOGLOBIN/HEMATOCRIT HEMOGLOBIN/HEMATOCRIT [facility] Start: 03-20-2023 SERUM CREATININE SERUM CREATININE [facility] Start: 03-19-2023 ANNUAL PCP TEAM CHRONIC DISEASE VISIT ANNUAL PCP TEAM CHRONIC DISEASE VISIT [facility] Start: 03-19-2023 HEMOGLOBIN/HEMATOCRIT HEMOGLOBIN/HEMATOCRIT [facility] Start: 03-19-2023 SERUM CREATININE SERUM CREATININE [facility] Start: 03-05-2023 End: 09-29-2023 Echocardiography ECHO Cardiology Routine History of prosthetic aortic valve replacement H/O rheumatic heart disease Expected: 03/05/2023, Expires: 09/29/2023 [facility] Work Phone: Comment on above: Expected: 03/05/2023, Expires: Start: 03-05-2023 Influenza vaccination [facility] Start: 02-27-2023 HEMOGLOBIN/HEMATOCRIT HEMOGLOBIN/HEMATOCRIT [facility] Start: 02-27-2023 SERUM CREATININE SERUM CREATININE [facility] Start: 02-24-2023 HEMOGLOBIN/HEMATOCRIT HEMOGLOBIN/HEMATOCRIT [facility] Start: 02-24-2023 SERUM CREATININE SERUM CREATININE [facility] Start: 02-23-2023 HEMOGLOBIN/HEMATOCRIT HEMOGLOBIN/HEMATOCRIT [facility] Start: 02-22-2023 SERUM CREATININE SERUM CREATININE [facility] Start: 02-20-2023 ANNUAL PCP TEAM CHRONIC DISEASE VISIT ANNUAL PCP TEAM CHRONIC DISEASE VISIT [facility] Start: 02-17-2023 HEMOGLOBIN/HEMATOCRIT HEMOGLOBIN/HEMATOCRIT [facility] Start: 01-16-2023 ANNUAL PCP TEAM CHRONIC DISEASE VISIT ANNUAL PCP TEAM CHRONIC DISEASE VISIT [facility] Start: 01-09-2023 HEMOGLOBIN/HEMATOCRIT HEMOGLOBIN/HEMATOCRIT [facility] Start: 01-09-2023 SERUM CREATININE SERUM CREATININE [facility] Start: 01-01-2023 BP CONTROLLED (<130/80) BP CONTROLLED (<130/80) [facility] Start: 12-29-2022 HEMOGLOBIN/HEMATOCRIT HEMOGLOBIN/HEMATOCRIT [facility] Start: 12-26-2022 HEMOGLOBIN/HEMATOCRIT HEMOGLOBIN/HEMATOCRIT [facility] Start: 12-16-2022 Hepatitis B screening URINE ALBUMIN:CREATININE RATIO [facility] Start: 12-15-2022 Adult depression screening assessment DEPRESSION SCREENING [facility] Start: 12-15-2022 ANNUAL PCP TEAM CHRONIC DISEASE VISIT ANNUAL PCP TEAM CHRONIC DISEASE VISIT [facility] Start: 12-15-2022 BP CONTROLLED (<130/80) BP CONTROLLED (<130/80) [facility] Start: 12-15-2022 HEMOGLOBIN/HEMATOCRIT HEMOGLOBIN/HEMATOCRIT [facility] Start: 12-15-2022 Hepatitis B surface antibody level LDL CHOLESTEROL [facility] Start: 12-03-2022 DEPRESSION ASSESSMENT DEPRESSION ASSESSMENT [facility] Comment on above: Postponed from 07/05/2022 (Declined at t his time) Start: 11-28-2022 HEMOGLOBIN/HEMATOCRIT HEMOGLOBIN/HEMATOCRIT [facility] Start: 11-28-2022 SERUM CREATININE SERUM CREATININE [facility] Start: 10-06-2022 End: 12-06-2022 Iron and Iron binding capacity panel - Serum or Plasma IRON + TIBC Lab Routine Iron malabsorption Expected: 10/06/2022, Expires: 12/06/2022 [facility] Work Phone: Comment on above: [...] of insulin (HCC) Expected: 10/05/2022, Expires: 12/05/2022 [facility] Work Phone: Comment on above: Expected: 10/05/2022, Expires: 3 Start: 10-05-2022 End: 12-05-2022 Comprehensive metabolic 2000 panel - Serum or Plasma COMP METABOLIC PANEL Lab Routine Atrial fibrillation, unspecified type (HCC) Hyperlipidemia with target LDL less than 70 Expected: 10/05/2022, Expires: 12/05/2022 [facility] Work Phone: Comment on above: Expected: 10/05/2022, Expires: 3 Start: 09-28-2022 End: 11-28-2022 Lipid 1996 panel - Serum or Plasma LIPID PANEL BASIC Lab Routine Hyperlipidemia with target LDL less than 70 Expected: 09/28/2022, Expires: 11/28/2022 [facility] Work Phone: Comment on above: Expected: 09/28/2022, Expires: 3 Start: 09-17-2022 Hemoglobin A1c/Hemoglobin.total in Blood HBA1C [facility] Start: 09-16-2022 ANNUAL PCP TEAM CHRONIC DISEASE VISIT ANNUAL PCP TEAM CHRONIC DISEASE VISIT [facility] Start: 09-16-2022 BP CONTROLLED (<130/80) BP CONTROLLED (<130/80) [facility] Start: 09-16-2022 SHINGRIX VACCINE (2 of 2) SHINGRIX VACCINE (2 of 2) [facility] Comment on above: Postponed from 01/03/2019 (Insurance Cov erage) Start: 09-13-2022 HEMOGLOBIN/HEMATOCRIT HEMOGLOBIN/HEMATOCRIT [facility] Start: 09-02-2022 End: 05-09-2023 US KIDNEY/BLADDER US KIDNEY/BLADDER Radiology Routine Neoplasm of uncertain behavior of right kidney Expected: 09/02/2022, Expires: 05/09/2023 [facility] Work Phone: Comment on above: Expected: 09/02/2022, Expires: 3 Start: 07-07-2022 End: 05-06-2023 Ct thorax w/o contrast material CT CHEST WO IVCON Radiology Routine Lung nodule, solitary Expected: 07/07/2022, Expires: 05/06/2023 [facility] Work Phone: Comment on above: Expected: 07/07/2022, Expires: 3 Start: 07-05-2022 ADVANCE DIRECTIVE DISCUSSION ADVANCE DIRECTIVE DISCUSSION [facility] Start: 07-05-2022 DEPRESSION ASSESSMENT DEPRESSION ASSESSMENT [facility] Start: 06-16-2022 Hemoglobin A1c/Hemoglobin.total in Blood HBA1C [facility] Start: 06-02-2022 SERUM CREATININE SERUM CREATININE [facility] Start: 05-07-2022 End: 07-07-2022 Basic metabolic 2000 panel - Serum or Plasma BASIC METABOLIC PNL Lab Routine Stage 3b chronic kidney disease (HCC) Iron deficiency anemia due to chronic blood loss Expected: 05/07/2022, Expires: 07/07/2022 [facility] Work Phone: Comment on above: Expected: 05/07/2022, Expires: 3 Start: 05-07-2022 End: 07-07-2022 CBC panel - Blood by Automated count CBC Lab Routine Stage 3b chronic kidney disease (HCC) Iron deficiency anemia due to chronic blood loss Expected: 05/07/2022, Expires: 07/07/2022 [facility] Work Phone: Comment on above: Expected: 05/07/2022, Expires: 3 Start: 03-30-2022 End: 05-30-2022 Basic metabolic 2000 panel - Serum or Plasma BASIC METABOLIC PNL Lab Routine Primary hypertension Expected: 03/30/2022, Expires: 05/30/2022 [facility] Work Phone: Comment on above: Expected: 03/30/2022, Expires: 2 Start: 03-05-2022 Influenza vaccination INFLUENZA (#1) [facility] Start: 02-20-2022 End: 04-22-2022 Basic metabolic 2000 panel - Serum or Plasma [facility] Work Phone: Comment on above: Expected: 02/20/2022, Expires: 2 Start: 02-19-2022 Hepatitis C antibody, confirmatory test DILATED RETINAL EXAM [facility] Start: 01-21-2022 End: 01-21-2023 SARS-CoV-2 (COVID-19) RNA [Presence] in Respiratory specimen by RANDOLPH with probe detection PRE-PROCEDURE & PRE-OPERATIVE COVID Microbiology Routine Paroxysmal atrial fibrillation (HCC) Expected: 01/21/2022, Expires: 01/21/2023 [facility] Work Phone: Comment on above: Expected: 01/21/2022, Expires: 3 Start: 12-30-2021 Administration of blood product [facility] Work Phone: Start: 12-30-2021 [facility] Work Phone: Start: 12-27-2021 End: 02-26-2022 CBC W Auto Differential panel - Blood CBC + DIFF Lab Routine Anemia, unspecified type Expected: 12/27/2021, Expires: 02/26/2022 [facility] Work Phone: Comment on above: Expected: 12/27/2021, Expires: 2 Start: 12-27-2021 End: 02-26-2022 Iron and Iron binding capacity panel - Serum or Plasma IRON + TIBC Lab Routine Anemia, unspecified type Expected: 12/27/2021, Expires: 02/26/2022 [facility] Work Phone: Comment on above: Expected: 12/27/2021, Expires: 2 Start: 12-15-2021 End: 02-14-2022 ALBUMIN/CREAT RATIO RND UR ALBUMIN/CREAT RATIO RND UR Lab Routine Type 2 diabetes mellitus with diabetic peripheral angiopathy without gangrene, without long-term current use of insulin (HCC) Expected: 12/15/2021, Expires: 02/14/2022 [facility] Work Phone: Comment on above: Expected: 12/15/2021, Expires: 2 Start: 12-11-2021 Hepatitis B surface antibody level LDL CHOLESTEROL [facility] Start: 11-26-2021 End: 01-26-2022 CBC panel - Blood by Automated count CBC Lab Routine PAD (peripheral artery disease) (HCC) Anemia due to chronic illness Expected: 11/26/2021, Expires: 01/26/2022 [facility] Work Phone: Comment on above: Expected: 11/26/2021, Expires: 2 Start: 11-26-2021 End: 01-26-2022 Renal function 2000 panel - Serum or Plasma RENAL FUNCTION PANEL Lab Routine PAD (peripheral artery disease) (HCC) Expected: 11/26/2021, Expires: 01/26/2022 [facility] Work Phone: Comment on above: Expected: 11/26/2021, Expires: 2 Start: 07-13-2021 COVID-19 VACCINE (4 - Booster for Pfizer series) COVID-19 VACCINE (4 - Booster for Pfizer series) [facility] Start: 07-12-2021 Hepatitis B screening URINE ALBUMIN:CREATININE RATIO [facility] Start: 07-05-2021 ADVANCE DIRECTIVE DISCUSSION ADVANCE DIRECTIVE DISCUSSION [facility] Start: 07-05-2021 DEPRESSION ASSESSMENT DEPRESSION ASSESSMENT [facility] Start: 06-12-2021 Hemoglobin A1c/Hemoglobin.total in Blood HBA1C [facility] Start: 05-08-2021 COVID-19 VACCINE (4 - Booster for Pfizer series) COVID-19 VACCINE (4 - Booster for Pfizer series) [facility] Start: 05-08-2021 COVID-19 VACCINE (4 - Pfizer series) COVID-19 VACCINE (4 - Pfizer series) [facility] Start: 2020 RSV Vaccine (1 - 1-dose 75+ series) RSV Vaccine (1 - 1-dose 75+ series) [facility] Start: 07-18-2020 Adult depression screening assessment DEPRESSION SCREENING [facility] Start: 05-25-2019 End: 05-25-2019 Office Visit 05/25/2019 Office Visit Cardiovascular Medicine Mars Chung, DO [address] [place] [address] [facility] Start: 03-05-2019 Influenza vaccination INFLUENZA VACCINE (#1) [facility] Start: 01-03-2019 SHINGRIX VACCINE (2 of 2) SHINGRIX VACCINE (2 of 2) [facility] Start: 01-08-2015 3 comp foot exam completed DIABETIC FOOT EXAM [facility] Start: 2010 Pneumococcal vaccination PNEUMOCOCCAL VACCINE SERIES (1 of 2 - PCV13) [facility] Start: 2005 Hepatitis B Vaccine (1 of 3 - Risk 3-dose series) Hepatitis B Vaccine (1 of 3 - Risk 3-dose series) [facility] Start: 2005 RSV Vaccine (1 - 1-dose 60+ series) RSV Vaccine (1 - 1-dose 60+ series) [facility] Start: 1995 Colonoscopy COLON CANCER SCREENING DISCUSSION [facility] Start: 1995 Zoster vaccine hzv live for subcutaneous use ZOSTER (SHINGLES) VACCINE (1 of 2) [facility] Start: 1985 Fasting lipid profile LIPID SCREENING [facility] Start: 1985 Screening mammography MAMMOGRAM SCREENING DISCUSSION [facility] Start: 1966 Screening for malignant neoplasm of cervix PAP SMEAR DISCUSSION [facility] Start: 1964 Third diphtheria, tetanus and acellular pertussis (DTaP) vaccination TDAP (ADULT) [facility] Start: 1963 Anxiety Screening Anxiety Screening [facility] Start: 1963 BP CONTROLLED (<130/80) BP CONTROLLED (<130/80) [facility] Start: 1963 Depression Screening Depression Screening [facility] Start: 1963 Tetanus vaccination TETANUS [facility] Start: 1945 Hepatitis C antibody, confirmatory test HEPATITIS C VIRUS SCREENING [facility] Start: 1945 Potassium [Moles/Vol] POTASSIUM [facility] Start: 1945 Screening for osteoporosis DEXA SCAN DISCUSSION [facility] Alanine aminotransfe rase [Enzymatic activity/volume] in Serum or Plasma [facility] Albumin [Mass/volume ] in Serum or Plasma [facility] Alkaline phosphatase [Enzymatic activity/volume] in Serum or Plasma [facility] Anion gap in Serum o r Plasma [facility] Anion gap in Serum o r Plasma [facility] Bacteria identified in Unspecified specimen by Anaerobe culture [facility] Basic metabolic 2008 panel with ionized calcium - Serum or Plasma [facility] Bilirubin, total measurement [facility] BUN/Creatinine ratio [facility] BUN/Creatinine ratio [facility] Calcium [Mass/volume ] in Serum or Plasma [facility] Calcium [Mass/volume ] in Serum or Plasma [facility] Carbon dioxide, tota l [Moles/volume] in Central venous blood [facility] Carbon dioxide, tota l [Moles/volume] in Central venous blood [facility] CBC W Auto Different ial panel - Blood [facility] Cholesterol [Mass/vo lume] in Serum or Plasma [facility] Cholesterol in HDL [Mass/volume] in Serum or Plasma [facility] COVID & INFLUENZA A/ B & RSV NAAT, ROUTINE COVID & INFLUENZA A/B & RSV NAAT, ROUTINE Microbiology Routine Influenza-like illness Ordered: 07/05/2023 [facility] Work Phone: Comment on above: Ordered: 07/05/2023 Creatinine [Mass/vol ume] in Serum or Plasma [facility] Creatinine [Mass/vol ume] in Serum or Plasma [facility] End: 01-21-2023 ECG COMPLETE ECG COMPLETE ECG Routine Paroxysmal atrial fibrillation (HCC) 1 Occurrences starting 01/21/2022 until 01/21/2023 [facility] Work Phone: Comment on above: 1 Occurrences starting 01/21/2022 until 01/21/2023 End: 02-09-2023 ECG COMPLETE ECG COMPLETE ECG Routine Paroxysmal atrial fibrillation (HCC) Presence of Watchman left atrial appendage closure device 1 Occurrences starting 02/09/2022 until 02/09/2023 [facility] Work Phone: Comment on above: 1 Occurrences starting 02/09/2022 until 02/09/2023 End: 03-19-2023 ECG COMPLETE ECG COMPLETE ECG Routine Aortic prosthetic valve regurgitation, 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) 1 Occurrences starting 03/19/2022 until 03/19/2023 [facility] Work Phone: Comment on above: 1 Occurrences starting 03/19/2022 until 03/19/2023 ECG COMPLETE ECG COMPLETE ECG 03/19/2022 11:04 AM EDT [facility] ECG COMPLETE [facility] Work Phone: Comment on above: Ordered: 10/18/2023 ECG COMPLETE ECG COMPLETE ECG 11/08/2023 4:52 PM EDT [facility] End: 01-21-2023 ECHO TRANSESOPHAGEAL ECHO TRANSESOPHAGEAL Cardiology Routine Paroxysmal atrial fibrillation (HCC) 1 Occurrences starting 01/21/2022 until 01/21/2023 [facility] Work Phone: Comment on above: 1 Occurrences starting 01/21/2022 until 01/21/2023 End: 02-09-2023 ECHO TRANSESOPHAGEAL ECHO TRANSESOPHAGEAL Cardiology Routine Paroxysmal atrial fibrillation (HCC) Presence of Watchman left atrial appendage closure device 1 Occurrences starting 02/09/2022 until 02/09/2023 [facility] Work Phone: Comment on above: 1 Occurrences starting 02/09/2022 until 02/09/2023 ECHO TRANSESOPHAGEAL ECHO TRANSE SOPHAGEAL Cardiology Routine Longstanding persistent atrial fibrillation (HCC) Presence of Watchman left atrial appendage closure device Ordered: 03/04/2022 [facility] Work Phone: Comment on above: Ordered: 03/04/2022 End: 10-17-2024 Echocardiography ECHO Cardiology Routine Acute systolic CHF (congestive heart failure) (HCC) 1 Occurrences starting 10/18/2023 until 10/17/2024 [facility] Work Phone: Comment on above: 1 Occurrences starting 10/18/2023 until 10/17/2024 End: 01-01-2026 Echocardiography ECHO Cardiology Routine Chronic diastolic (congestive) heart failure (HCC) History of prosthetic aortic valve replacement Acute on chronic diastolic congestive heart failure (HCC) 1 Occurrences starting 01/01/2025 until 01/01/2026 [facility] Work Phone: Comment on above: 1 Occurrences starting 01/01/2025 until 01/01/2026 End: 01-01-2023 EGD DIAGNOSTIC EGD DIAGNOSTIC Endoscopy Routine Acute blood loss anemia Heme + stool Epigastric pain 1 Occurrences starting 01/01/2022 until 01/01/2023 [facility] Work Phone: Comment on above: 1 Occurrences starting 01/01/2022 until 01/01/2023 Erythrocyte mean corpuscular volume determination [facility] Erythrocyte mean corpuscular volume determination [facility] Ferritin [Mass/volum e] in Serum or Plasma [facility] Glucose [Mass/volume ] in Serum or Plasma [facility] Glucose [Mass/volume ] in Serum or Plasma [facility] Hematocrit [Volume Fraction] of Blood [facility] Hematocrit [Volume Fraction] of Blood [facility] Hemoglobin [Mass/vol ume] in Blood [facility] Hemoglobin [Mass/vol ume] in Blood [facility] Hemoglobin.braden rhodeslower [Presence] in Stool by Immunoassay FECAL OCCULT BLOOD TEST Lab Routine Heme + stool Ordered: 12/15/2021 [facility] Work Phone: Comment on above: Ordered: 12/15/2021 Hemoglobin.braden rhodeslower [Presence] in Stool by Immunoassay IMMUNOCHEMICAL FECAL OCCULT BLOOD TEST Lab Routine Acute systolic CHF (congestive heart failure) (HCC) Ordered: 11/04/2023 [facility] Work Phone: Comment on above: Ordered: 11/04/2023 Iron [Mass/mass] in Unspecified specimen [facility] Iron and Iron bindin g capacity panel - Serum or Plasma [facility] Iron saturation [Mas s Fraction] in Serum or Plasma [facility] Leukocytes [#/volume ] in Blood [facility] Leukocytes [#/volume ] in Blood [facility] Low density lipoprot ein cholesterol measurement [facility] Magnesium measurement [facility] Mean corpuscular hemoglobin concentration determination [facility] Mean corpuscular hemoglobin concentration determination [facility] Mean corpuscular hemoglobin determination [facility] Mean corpuscular hemoglobin determination [facility] Measurement of renal function [facility] Measurement of renal function [facility] End: 08-06-2023 Mra head w/o & w/contrast material MRA BRAIN WO/W IVCON Radiology Routine 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 B prohormone N-Terminal [Mass/volume] in Serum or Plasma [facility] Neutrophil count [facility] Neutrophil count [facility] Neutrophil percent differential count [facility] Neutrophil percent differential count [facility] Patient Education [facility] Work Phone: Platelets [#/volume] in Blood [facility] Platelets [#/volume] in Blood [facility] Potassium measurement [facility] Potassium measurement [facility] End: 01-08-2024 PVR ANK PRESS [facility] PVR ANK PRESS [facility] Vascular Lab Routine 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HCC) Pain in both lower legs Atherosclerosis of minto artery of both lower extremities with intermittent claudication (HCC) 1 Occurrences starting 01/07/2023 until 01/08/2024 [facility] Work Phone: Comment on above: 1 Occurrences starting 01/07/2023 until 01/08/2024 End: 01-08-2024 PVR LEG [facility] PVR LEG [facility] Vascular Lab Routine 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HCC) Pain in both lower legs Atherosclerosis of minto artery of both lower extremities with intermittent claudication (HCC) 1 Occurrences starting 01/07/2023 until 01/08/2024 [facility] Work Phone: Comment on above: 1 Occurrences starting 01/07/2023 until 01/08/2024 Red blood cell count [facility] Red blood cell count [facility] Red cell distributio n width determination [facility] Red cell distributio n width determination [facility] Serum chloride measurement [facility] Serum chloride measurement [facility] Sodium measurement [facility] Sodium measurement [facility] SURGICAL PATHOLOGY [facility] Work Phone: Comment on above: Release Upon Ordering for 1 Occurrences starting 01/02/2022, 1 completed Total cholesterol:HD L ratio measurement [facility] Total iron binding capacity measurement [facility] Total protein measurement [facility] Triglycerides measurement [facility] Troponin T.cardiac [Mass/volume] in Serum or Plasma by High sensitivity method [facility] Urea nitrogen [Mass/volume] in Serum or Plasma [facility] Urea nitrogen [Mass/volume] in Serum or Plasma [facility] End: 01-08-2024 US CAROTID ARTERIES [facility] US CAROTID ARTERIES [facility] Vascular Lab Routine Bilateral carotid artery stenosis 1 Occurrences starting 01/07/2023 until 01/08/2024 [facility] Work Phone: Comment on above: 1 Occurrences starting 01/07/2023 until 01/08/2024 End: 12-20-2025 US Mesenteric arteries US MESENTERIC ARTERY [facility] Vascular Lab Routine Superior mesenteric artery stenosis (HCC) 1 Occurrences starting 12/20/2024 until 12/20/2025 [facility] Work Phone: Comment on above: 1 Occurrences starting 12/20/2024 until 12/20/2025 VLDL cholesterol measurement [facility] Cl[facility] Immunizations Immunization Date Immunization Notes Care Provider [facility] 07-07-2024 influenza, high dose seasonal, preservative-free Melida Eugene [employer]ERSONTWISTHAND Work Phone: [facility] 07-07-2024 influenza virus vacc ine, unspecified formulation Carla Burdick MD Work Phone: [facility] 04-12-2023 influenza (HD-IIV4) vaccine, age 65+ yr, high dose, quadrivalent, PF (FLUZONE HIGH-DOSE) Ct (I-Stat) Work Phone: [facility] 04-12-2023 influenza virus vacc ine, unspecified formulation Carla Burdick MD Work Phone: [facility] 05-22-2022 influenza (aIIV4) vaccine, age 65+ yr, quadrivalent, PF (FLUAD QUADRIVALENT) NA Rey HAMLIN Work Phone: [facility] 05-22-2022 influenza, high-dose , quadrivalent vaccine (FLUZONE HIGH DOSE QUADRIVALENT) Sonny Lund MD Work Phone: [facility] 05-22-2022 influenza virus vacc ine, unspecified formulation Yin Joseph MD Work Phone: [facility] 05-20-2021 influenza, high-dose , quadrivalent vaccine (FLUZONE HIGH DOSE QUADRIVALENT) Chandler Swan MD Work Phone: [facility] 10-09-2020 COVID-19 vaccine, ag e 12+ yr ([employer] - PURPLE TOP) Chandler Swan MD Work Phone: [facility] 09-18-2020 COVID-19 vaccine, ag e 12+ yr ([employer] - PURPLE [facility]) Chandler Swan MD Work Phone: [facility] 05-17-2020 influenza, high-dose , quadrivalent vaccine (FLUZONE HIGH DOSE QUADRIVALENT) Chandler Swan MD Work Phone: [facility] 05-09-2019 influenza, high dose seasonal, preservative-free Chandler Swan MD Work Phone: [facility] 11-08-2018 zoster vaccine recombinant Chandler Swan MD Work Phone: [facility] Work Phone: 05-09-2018 Seasonal trivalent influenza vaccine, adjuvanted, preservative free Chandler Swan MD Work Phone: [facility] 05-05-2017 influenza nasal, unspecified formulation Chandler Swan MD Work Phone: [facility] 05-05-2017 influenza, injectabl e, quadrivalent, contains preservative Chandler Swan MD Work Phone: [facility] 05-05-2017 influenza, seasonal, injectable Chandler Swan MD Work Phone: [facility] 05-05-2017 influenza virus vacc ine, unspecified formulation [facility] 04-05-2017 influenza, injectabl e, quadrivalent, preservative free Ct (I-Stat) Work Phone: [facility] 04-05-2017 influenza, seasonal, injectable [facility] 04-05-2017 influenza, seasonal, injectable, preservative free Chandler Swan MD Work Phone: [facility] 11-25-2016 pneumococcal conjuga te vaccine, 13 valent Chandler Swan MD Work Phone: [facility] Work Phone: 04-07-2016 influenza, high dose seasonal, preservative-free Chandler Swan MD Work Phone: [facility] Work Phone: 01-08-2014 tetanus toxoid, redu javid diphtheria toxoid, and acellular pertussis vaccine, adsorbed Chandler Swan MD Work Phone: [facility] Work Phone: 06-06-2013 pneumococcal polysaccharide vaccine, 23 valent Chandler Swan MD Work Phone: [facility] 05-14-2013 influenza nasal, unspecified formulation Chandler Swan MD Work Phone: [facility] 05-14-2013 influenza virus vacc ine, unspecified formulation Chandler Swan MD Work Phone: [facility] 05-14-2013 influenza, seasonal, injectable, preservative free Chandler Swan MD Work Phone: [facility] 05-20-2012 influenza, seasonal, injectable Chandler Swan MD Work Phone: [facility] 04-29-2011 influenza, seasonal, injectable, preservative free Chandler Swan MD Work Phone: [facility] 04-23-2009 influenza, seasonal, injectable Chandler Swan MD Work Phone: [facility] 07-07-1999 pneumococcal polysaccharide vaccine, 23 valkathy Encinas MD Work Phone: [facility] Work Phone: 07-05-1999 pneumococcal polysaccharide vaccine, 23 valent Chandler Swan MD Work Phone: [facility] Payers Date Payer Category Payer Self-pay [id number] 2021 Medicare [id number] 2021 Medicare [id number] 2021 Medicare (Managed Care) PRADEEP NICKERSON [id number] 2021 Private Health Insurance [facility] [id number] 2019 Medicare MEDICARE HUMANA O PPO MEDICARE HUMANA O PPO xxxxxxxxx 2019-Present xxxxxxxxx [id number] 2015 Medicare SELF PAY INSURANCE [id number] Unknown [id number] 2.16840.1.472099.3.579.2. 462 Unknown [id number] 2.840.1.290287.3.579.2. 462 Unknown [id number] 2.16840.1.606113.3.579.2. 462 Unknown [id number] 2.16.840.1.127266.3.579.2. 462 Unknown [id number] 2.16.840.1.115315.3.579.2. 462 Unknown [id number] 2.16840.1.992352.3.579.2. 462 Unknown [id number] 2.16.840.1.915670.3.579.2. 462 Unknown [id number] 2.16840.1.632603.3.579.2. 462 Unknown [id number] 2.16.840.1.434226.3.579.2. 462 Unknown [id number] 2.16.840.1.822697.3.579.2. 462 Unknown [id number] 2.16.840.1.868256.3.579.2. 462 Unknown [id number] 2.840.1.793975.3.579.2. 462 Unknown [id number] 2..840.1.193758.3.579.2. 462 Unknown [id number] 2.840.1.355269.3.579.2. 462 Unknown [id number] 2.840.1.984907.3.579.2. 462 Unknown [id number] 2.840.1.141336.3.579.2. 462 Unknown [id number] 2.840.1.594143.3.579.2. 462 Unknown [id number] 2.840.1.409446.3.579.2. 462 Unknown [id number] 2.840.1.334403.3.579.2. 462 Unknown [id number] 2.840.1.459137.3.579.2. 462 Unknown [id number] 2.840.1.327227.3.579.2. 462 Unknown [id number] 2.840.1.386711.3.579.2. 462 Unknown [id number] 2.840.1.380939.3.579.2. 462 Unknown [id number] 2.840.1.176314.3.579.2. 462 Unknown [id number] 2.840.1.910969.3.579.2. 462 Unknown [id number] 2.840.1.568561.3.579.2. 462 Unknown [id number] 2.16.840.1.095645.3.579.2. 462 Unknown [id number] 2.16.840.1.443448.3.579.2. 462 Unknown [id number] 2.16.840.1.513021.3.579.2. 462 Unknown [id number] 2.16.840.1.650086.3.579.2. 462 Unknown [id number] 2.16.840.1.012774.3.579.2. 462 Unknown [id number] 2.16.840.1.132005.3.579.2. 462 Unknown [id number] 2.16.840.1.164726.3.579.2. 462 Unknown [id number] 2.16.840.1.398914.3.579.2. 462 Unknown [id number] 2.16.840.1.915965.3.579.2. 462 Unknown [id number] 2.16.840.1.943931.3.579.2. 462 Unknown [id number] 2.16.840.1.311763.3.579.2. 462 Unknown [id number] 2.16.840.1.364870.3.579.2. 462 Unknown [id number] 2.16.840.1.125837.3.579.2. 462 Unknown [id number] 2.16.840.1.808918.3.579.2. 462 Unknown [id number] 2.16.840.1.559002.3.579.2. 462 Social History Date Type Detail Facility Start: 01-19-2019 End: 03-22-2025 Tobacco smoking status [facility] Former smoker [facility] Start: 01-19-2019 Tobacco Comment smoked for a y ear, 50 years ago [facility] Start: 01-19-2019 Alcohol Comment occasional wine [employer] [facility] Start: 1945 Sex Assigned At Not on file [facility] [employer] Start: 07-05-1965 End: 02-11-1970 History of tobacco use Current smoker [facility] Start: 08-10-2019 End: 04-07-2024 Tobacco use and exposure Smokeless tobacco non-user [facility] Start: 09-16-2021 End: 12-15-2021 Alcohol intake Current drinker of alcohol (finding) [facility] Start: 09-16-2021 End: 01-07-2023 Alcohol intake [facility] Start: 10-25-2019 End: 10-29-2019 History SDOH Alcohol Frequency 2 [facility] Start: 10-25-2019 End: 10-29-2019 History SDOH Alcohol Std Drinks 1 [facility] Start: 01-31-2019 History SDOH Alcohol Comment red wine 2-3 times a week- occasional [facility] Start: 10-29-2019 History SDOH Social Connections Phone 5 [facility] Start: 10-29-2019 End: 02-24-2022 History SDOH Social Connections Catholic 3 [facility] Start: 10-29-2019 Education 15 [facility] Start: 09-05-2021 End: 05-14-2022 Exposure to SARS-CoV-2 (event) Not sure [facility] Start: 10-14-2021 End: 01-23-2022 Exposure to SARS-CoV-2 (event) Unable to assess [facility] Start: 02-13-2021 Tobacco smoking stat us DCIS Unknown if ever smoked [facility] Work Phone: Start: 1945 Sex Assigned At Female W [facility] Start: 07-05-1965 End: 02-11-1970 History of tobacco use Cigarette Smoker [facility] Start: 06-08-2022 End: 12-20-2024 Alcohol intake Ex-drinker (finding) [facility] Start: 01-07-2023 End: 12-11-2024 Tobacco use panel [facility] Start: 06-05-2012 How hard is it for y ou to pay for the very basics like food, housing, medical care, and heating Patient refused [facility] (I/We) worried marcella forman (my/our) food would run out before (I/we) got money to buy more. DK or Refused [facility] Do you belong to any clubs or organizations such as baptist groups, unions, fraternal or athletic groups, or school groups? Yes [facility] Are you now , , , , never or living with a partner? [facility] How often to you hav e a drink containing alcohol? Monthly or less [facility] How many standard dr inks containing alcohol do you have on a typical day? 1 or 2 [facility] How often do you hav e 6 or more drinks on 1 occasion? Never [facility] Do you feel stress - tense, restless, nervous, or anxious, or unable to sleep at night because your mind is troubled all the time - these days [OSQ] Not at all [facility] Has the [employer], or water [employer] threatened to shut off services in your home in past 12Mo No [facility] (I/We) worried marcella er (my/our) food would run out before (I/we) got money to buy more. Never true [facility] Start: 01-07-2025 End: 01-11-2025 Tobacco smoking status NHIS Never smoked tobacco (finding) [facility] Start: 11-15-2017 Alcohol Alcohol [facility] Start: 11-15-2017 Drugs Drugs [facility] Start: 11-15-2017 Lives Lives [facility] Start: 01-11-2025 Tobacco Use Tobacco Use [facility] Medical Equipment Procedure Code Equipment Code Equipment Origin al Text Equipment Identifier Dates Test blood sugar (s) 2 times daily. Dx: Type 2 DM - Controlled E11.9 Insulin: No [id number] Start: 01-19-2019 Comment on above: Test blood sugar(s) 2 times daily. Dx: Type 2 DM - Controlled E11.9 Insulin: No [id number] Sania Xt [id number] Start: 10-21-2020 [id number] [employer] Selam Surecaro [id number] Start: 10-21-2020 [id number] [employer] Hawkins [id number] Start: 10-21-2020 Goals Date Patient Goal Desired Activity /State Personal health goal Functional Status Date Assessment Result Facility 01-11-2025 Functional status Chair [facility] Work Phone: 12-12-2024 Are you deaf, or do you have serious difficulty hearing Yes 12/12/2024 10:12 AM EDT Lizeth Jordan RN Yes [facility] 12-12-2024 Are you blind, or do you have serious difficulty seeing, even when wearing glasses No 12/12/2024 10:12 AM EDT Lizeth Jordan RN No [facility] 12-12-2024 Do you have serious difficulty walking or climbing stairs No 12/12/2024 10:12 AM EDT Lizeth Jordan RN No [facility] 12-12-2024 Do you have difficul ty dressing or bathing No 12/12/2024 10:12 AM EDT Lizeth Jordan RN No [facility] 12-12-2024 Because of a physica l, mental, or emotional condition, do you have difficulty doing errands alone such as visiting a physician's office or shopping No 12/12/2024 10:12 AM EDT Lizeth Jordan RN No [facility] 11-12-2023 Are you deaf, or do you have serious difficulty hearing No 11/12/2023 3:37 PM EDT Raina Coppola RN No [facility] 11-12-2023 Are you blind, or do you have serious difficulty seeing, even when wearing glasses No 11/12/2023 3:37 PM EDT Raina Coppola RN No [facility] 11-12-2023 Do you have serious difficulty walking or climbing stairs No 11/12/2023 3:37 PM EDT Raina Coppola RN No [facility] 11-12-2023 Do you have difficul ty dressing or bathing No 11/12/2023 3:37 PM ADIELT Raina Coppola RN No [facility] 11-12-2023 Because of a physica l, mental, or emotional condition, do you have difficulty doing errands alone such as visiting a physician's office or shopping No 11/12/2023 3:37 PM EDT Raina Coppola RN No [facility] Mental Status Date Assessment Result Facility 03-27-2025 Cognitive function Voice/Name [facility] Work Phone: 03-20-2025 Cognitive function Awake [facility] Work Phone: 01-11-2025 Cognitive function Voice/Name [facility] Work Phone: 12-12-2024 Because of a physica l, mental, or emotional condition, do you have serious difficulty concentrating, remembering, or making decisions No 12/12/2024 10:12 AM EDT Lizeth Jordan RN No [facility] 11-12-2023 Because of a physica l, mental, or emotional condition, do you have serious difficulty concentrating, remembering, or making decisions No 11/12/2023 3:37 PM EDT Raina Coppola RN No [facility] 12-30-2021 Cognitive function Voice/Name [facility] Work Phone: Clinical Notes 02-15-2021 to 03-29-2025 Note Date & Type Note Facility 03-29-2025 Progress note Note Date/Time March 29, 2025 4:05pm [facility] [address] [place] [address] Progress Note - Wound Care 03/29/25 1237 MR#: [id number] Acct: [id number] Name: BERTA SANCHES Rep #:[id number] : [...] months ago during a prolonged hospitalization in [place]. Bilateral foot/heel and right kaur. She has been applying Neosporin without anysignificant improvement. She reports a history of vascular surgery in [place]. Had a stent placed to an abdominal [...] Method Room Air Charges/Coding Procedures Integumentary 111xxx-113xx: 59868 Etelvina subq tissue 20 sq cm/< Physical [...] Date Recorded By Document 03/08/25 09:53 KW [id number] 03/08/25 10:07 KW Document 03/15/25 11:36 ML [id number] 03/15/25 11:44 ML Document 03/29/25 11:05 [id number] 03/29/25 11:15 LINDSAY 03/08/25 03/15/25 03/29/25 09:53 11:36 11:05 WC - Today's Visit Information Type of service Follow-up Visit Follow-up Visit Follow-up Visit (Physician/TWISTHAND (Physician/TWISTHAND (Physician/TWISTHAND ) ) ) Arrival Mode Ambulatory Ambulatory [...] Date Recorded By Document 03/08/25 09:53 KW [id number] 03/08/25 10:07 KW Document 03/15/25 11:36 ML [id number] 03/15/25 11:44 ML Document 03/29/25 11:15 [id number] 03/29/25 11:38 03/08/25 03/15/25 03/29/25 09:53 11:36 [...] Amt Small (1-33%) Large (67-100%) -Granulation Quality [place] -Slough/Fibrin Yes No -Necrosis Amt Small (1-33%) [...] Present (0 Small (1-33%) %) -Granulation Quality [place] Str[place]mere -Slough/Fibrin Yes -Necrosis Amt None Present (0 [...] Recorded Date Recorded By Document 03/08/25 10:43 [id number] 03/08/25 10:54 GM Document 03/15/25 12:00 [id number] 03/15/25 12:09 GM Edit Result 03/15/25 12:00 GM (1) [id number] 03/21/25 12:09 GM Document 03/29/25 11:41 [id number] 03/29/25 11:46 JF (1) #2 RT HEEL [...] Date Recorded By Document 03/08/25 11:17 MT [id number] 03/08/25 11:20 MT Document 03/15/25 12:32 RB [id number] 03/15/25 12:34 RB Document 03/29/25 11:58 JF [id number] 03/29/25 12:01 03/08/25 03/15/25 03/29/25 11:17 12:32 [...] if needed. This note was generated with Ryanation software. It may contain incorrectwords, spelling, and punctuation that were not noted in checking the note beforesigning. 03/29/25 9815 <Electronically signed by Ebony Cerrato MD> Cosigner Signature (if applicable): CC: ~ Signed [facility] Work Phone: 1(514) 485-331109-11-2025 Progress note Author Ebony Cerrato [facility] Note Date/Time March 15, 2025 4:29pm [facility] [address] [place] [address] Progress Note - Wound Care 03/15/25 1309 MR#: [id number] Acct: [id number] Name: BERTA SANCHES Rep #:[id number] : [...] months ago during a prolonged hospitalization in [place]. Bilateral foot/heel and right kaur. She has been applying Neosporin without anysignificant improvement. She reports a history of vascular surgery in [place]. Had a stent placed to an abdominal [...] Method Room Air Charges/Coding Procedures Integumentary 111xxx-113xx: 38687 Etelvina subq tissue 20 sq cm/< Physical [...] Date Recorded By Document 03/08/25 09:53 KW [id number] 03/08/25 10:07 KW Document 03/15/25 11:36 ML [id number] 03/15/25 11:44 ML 03/08/25 03/15/25 09:53 11:36 - Today's Visit Information Type of service Follow-up Visit Follow-up Visit (Physician/TWISTHAND (Physician/TWISTHAND ) ) Arrival Mode Ambulatory Ambulatory Transfer [...] Date Recorded By Document 03/08/25 09:53 KW [id number] 03/08/25 10:07 KW Document 03/15/25 11:36 ML [id number] 03/15/25 11:44 ML 03/08/25 03/15/25 09:53 11:36 [...] (67-100%) None Present (0 %) -Granulation Quality [place] -Necrosis Amt None Present (0 %) -Texture [...] Recorded Date Recorded By Document 03/08/25 10:43 [id number] 03/08/25 10:54 Document 03/15/25 12:00 [id number] 03/15/25 12:09 03/08/25 03/15/25 10:43 12:00 Wound [...] Date Recorded By Document 03/08/25 11:17 MT [id number] 03/08/25 11:20 MT Document 03/15/25 12:32 RB [id number] 03/15/25 12:34 RB 03/08/25 03/15/25 11:17 12:32 [...] if needed. This note was generated with Ryanation software. It may contain incorrectwords, spelling, and punctuation that were not noted in checking the note beforesigning. 03/15/25 0883 <Electronically signed by Ebony Cerrato MD> Cosigner Signature (if applicable): CC: ~ Signed [facility] Work Phone: 1(292) 462-887809-04-2025 Progress note Author Ebony Cerrato [facility] Note Date/Time March 08, 2025 12:44pm [facility] [address] [place] [address] Progress Note - Wound Care 03/08/25 1234 MR#: [id number] Acct: [id number] Name: BERTA SANCHES Rep #:[id number] : [...] months ago during a prolonged hospitalization in [place]. Bilateral foot/heel and right kaur. She has been applying Neosporin without anysignificant improvement. She reports a history of vascular surgery in [place]. Had a stent placed to an abdominal [...] Method Room Air Charges/Coding Procedures Integumentary 111xxx-113xx: 70593 Etelvina subq tissue 20 sq cm/< Physical [...] Recorded Date Recorded By Document 03/08/25 09:53 [id number] 03/08/25 10:07 03/08/25 09:53 - Today's Visit Information Type of service Follow-up Visit (Physician/TWISTHAND ) Arrival Mode Ambulatory Accompanied by Patient [...] Date Recorded By Document 03/08/25 09:53 MADYSON [id number] 03/08/25 10:07 KW 03/08/25 09:53 Wound Center [...] Attached -Granulation Amt Large (67-100%) -Granulation Quality [place] -Texture (Violet-wound Skin Appearance) Assessed,Callus -Moisture (Violet-wound [...] (Violet-wound Skin Appearance) Assessed, Hemosiderin Staining -Temperature (Vioelt-wound Skin No Abnormality Appearance) (Pt Warm) -Tenderness [...] Recorded Date Recorded By Document 03/08/25 10:43 [id number] 03/08/25 10:54 GM 03/08/25 10:43 Wound Center [...] Recorded Date Recorded By Document 03/08/25 11:17 IN [id number] 03/08/25 11:20 IN 03/08/25 11:17 Wound Care Center Nurse 3 [...] Cosigner Signature (if applicable): CC: ~ Signed [facility] Work Phone: 1(439) 458-339508-28-2025 History and physical note Author Ebony Cerrato [facility] Note Date/Time March 01, 2025 9: 58pm [facility] [address] [place] [address] H&P Exam - Wound Care 03/01/25 1249 MR#: [id number] Acct: [id number] Name: BERTA SANCHES Rep #:[id number] : 1945 79 From: Ebony collins MD PCP: Dr. Vincent Flores MD Status:REG R CR Location: ADDENDUM by Dr. Ebony Cerrato MD on 03/01/25 at 2158 Visit Charges Office Visits / Consults: 02841 OV L3 Est 20min Procedures Integumentary 111xxx-113xx: 16443 Etelvina subq tissue 20 sq cm/< 03/01/258<Electronically [...] months ago during a prolonged hospitalization in [place]. Bilateral foot/heel and right kaur. She has been applying Neosporin without anysignificant improvement. She reports a history of vascular surgery in [place]. 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 No significant tobacco use, smoked for about 6 months quit over 50 years ago. She reports a history of borderline diabetes. Currently not on medication. Appetite is fair, concern for recent significant weight loss.. Otherwise, she states that she feels well. 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 Tub Puller to contact place of episcopal No - Nurse 1 - General Ulcer Measurement Start: 03/01/25 09:07 Freq: Status: Active Protocol: Activity Type Activity Date Activity User E-sign Co-sign Detail Recorded Client Recorded Date Recorded By Document 03/01/25 09:12 KW [id number] 03/01/25 09:35 KW 03/01/25 09:12 Wound Center Nurse 1 #3 LT HEEL -Current Size (cm) - Length 0.1 -Current Size (cm) - Width 0.4 -Current Size (cm) - Depth 0.1 -Total Square Cm 0.04 -Date of Last Picture (Recall this 03/01/25 field) -Exudate Amt Small -Exudate Type Serosanguineous -Wound Margin Thickened -Granulation Amt Small (1-33%) -Granulation Quality [place] -Necrosis Amt Large (67-100%) -Necrotic Tissue Type [...] Thickened -Granulation Amt Small (1-33%) -Granulation Quality [place] -Necrosis Amt Large (67-100%) -Necrotic Tissue Type Adherent Slough -Texture (Voilet-wound Skin Appearance) Assessed,Callus -Moisture (Violet-wound Skin Appearance) [...] Attached -Granulation Amt Large (67-100%) -Granulation Quality [place],Red -Texture (Violet-wound Skin Appearance) Assessed -Moisture (Violet-wound [...] Recorded Date Recorded By Document 03/01/25 09:52 [id number] 03/01/25 10:09 03/01/25 09:52 Wound Center Nurse [...] Recorded Date Recorded By Document 03/01/25 10:32 IN [id number] 03/01/25 10:36 IN 03/01/25 10:32 Wound Care Center Nurse 3 [...] if needed. This note was generated with orangutrans dictation software. It may contain incorrectwords, spelling, and punctuation that were not noted in checking the note beforesigning. 03/01/252156 <Electronically signed by Ebony Cerrato MD> Cosigner Signature (if applicable): CC: ~ Signed [facility] Work Phone: 1(181) 470-781208-15-2025 Radiology Diagnostic study note [facility] Imaging Services [address] [place], [place] [address] Chest PA and Lateral MR#: [id number] Acct: [id number] Name: BERTA SANCHES Rep #: [id number] : 1945 F 79 From: Tevin Chaves MD PCP: Dr. Vincent Flores MD Status: REG E R Study:Chest PA and Lateral Date of Exam: 02/16/25 Exam# [id number] Ordering Dr: Glenna Pang MD PROCEDURE: CHEST [...] arteries suggestive of pulmonary hypertension. Reading Location: [facility] CC: Dr. Magdy Pang MD; Dr. Vincent Flores MD ~ Smt Technician: Signed [facility]08-07-2025 Procedure [facility] [address] [place], [place] [address] Pacemaker Check Date of Service: 02/08/25 1425 MR#: [id number] Acct: [id number] Name: BERTA SANCHES Rep #: [id number] : 1945 From: Pau wilson Age/Sex: 79/F Location: [facility] Status: Signed Billing Codes PM Device Codes: 30973 PM Dev Prog Eval, Dual Assessment and Plan Assessment and Plan (1) Presence of Watchman left atrial appendage closure device: Status: Acute (2) Pacemaker: Status: Acute Comment: 10/21/[address] [employer] [place] XT DR MRI Epy.ioscan W1DR01 pulse generator programmed as AAIR (3) Cardiac arrhythmia: Status: Acute Qualifiers: Arrhythmia type: unspecified cardiac arrhythmia Qualified Code(s): I49.9 - Cardiac arrhythmia, unspecified 02/08/25 1426 > Date _ Pau Mccormakc Signature: Date (if applicable) CC: ~ [facility]2025 Evaluation note* Diagnosis Onset Date Resolution [...] (paroxysmal atrial fibrillation) chronic May 10 11:22am [facility] Work Phone: 1(176) 933-474907-28-2025 Telephone encounter Note* Telephone Encounter - Irma Hwang RN - 01/29/2025 5:17 PM EDT Pharmacy electronically requests the following refill(s) Requested Prescriptions Pending Prescriptions Disp Refills simvastatin (ZOCOR) 40 mg tablet [Pharmacy Med Name: SIMVASTATIN 20 MG TAB[*]] 90 tablet 3 Sig: Take 1 tablet by mouth daily at bedtime. Iram Hwang RN [facility]07-28-2025 Miscellaneous Notes* Telephone Encounter - Irma Hwang RN - 01/29/2025 5:17 PM EDT Pharmacy electronically requests the following refill(s) Requested Prescriptions Pending Prescriptions Disp Refills simvastatin (ZOCOR) 40 mg tablet [Pharmacy Med Name: SIMVASTATIN 20 MG TAB[*]] 90 tablet 3 Sig: Take 1 tablet by mouth daily at bedtime. Irma Hwang RN [facility] Discharge summary [facility] Medical Records Department [address] [place] [address] Instructions for Home/Discharge Instructions 01/11/25 1226 MR#: [id number] Acct: [id number] Name: BERTA SANCHES Rep #:[id number] : [...] Hernandez MD [Non-Staff] - Deysi Collazo NP, AUTO WHEEL ALIGNMENT SPECIALIST-C [Primary Care Provider] - Disposition Disposition (needs filled in before D/C Order can be placed): Home, Self Care 01/11/25 1230Dianne Stovall DO CC: AUTO WHEEL ALIGNMENT SPECIALIST-C Deysi Collazo; Dr. Jeremy Mcgarry MD; Dr. Radha Heller MD ~ Signed [facility]07-10-20[facility] Progress note Author [facility] Note Date/Time January 10, 2025 6:26p [facility] Medical Records Department [address] [place] [address] Progress Note - Hospitalist 01/10/25 1823 MR#: [id number] Acct: [id number] Name: BERTA SANCHES SCOTTIE Rep #:[id number] : 1945 79 From: Dianne Stovall DO PCP: JARROD Cantu Status:ADM I N Location: [place] [address] Reason for Visit Reason for Visit: Diagnoses [...] team: 35-minute Charges/Coding Visit Charges Inpatient E&M: 01023 Subs Hosp L2 NIHSS NIHSS Nursing Documentation NIHSS Nursing Documentation: NIHSS: Ischemic Stroke/TIA Start: 01/08/25 00:49 Freq: O7WGQMD Status: Complete Protocol: Activity Type Activity Date Activity User E-sign Co-sign Detail Recorded Client Recorded Date Recorded By Document 01/08/25 03:22 [id number] 01/08/25 03:24 01/08/25 03:22 NIH Stroke Scale [...] and with change in RN caregiver. Freq: Z1XZDIH Protocol: Activity Type Activity Date Activity User E-sign Co-sign Detail Recorded Client Recorded Date Recorded By Document 01/08/25 12:00 [id number] 01/08/25 12:10 01/08/25 12:00 NIH Stroke Scale [...] Cosigner Signature (if applicable): CC: ~ Signed [facility] Work Phone: 1(491) 726-617607-09-2025 Progress note [facility] Records Department [address] [place] [address] Progress Note - Hospitalist 01/10/25 1823 MR#: [id number] Acct: [id number] Name: BERTA SANCHES SCOTTIE Rep #:[id number] : 1945 79 From: Dianne Stovall DO PCP: JARROD Cantu Status:ADM I N Location: [place] [address] Reason for Visit Reason for Visit: Diagnoses [...] team: 35-minute Charges/Coding Visit Charges Inpatient E&M: 12014 Subs Hosp L2 NIHSS NIHSS Nursing Documentation NIHSS Nursing Documentation: NIHSS: Ischemic Stroke/TIA Start: 01/08/25 00:49 Freq: [id number] Status: Complete Protocol: Activity Type Activity Date Activity User E-sign Co-sign Detail Recorded Client Recorded Date Recorded By Document 01/08/25 03:22 [id number] 01/08/25 03:24 01/08/25 03:22 NIH Stroke Scale [...] and with change in RN caregiver. Freq: Q0KEXGE Protocol: Activity Type Activity Date Activity User E-sign Co-sign Detail Recorded Client Recorded Date Recorded By Document 01/08/25 12:00 [id number] 01/08/25 12:10 01/08/25 12:00 NIH Stroke Scale [...] Cosigner Signature (if applicable): CC: ~ Signed [facility]07-09-2025 Progress note Author Jeremy Mcgarry [facility] Note Date/Time January 10, 2025 11:52 am [facility] Medical Records Department [address] [place] [address] Progress Note - Nephrology 01/10/25 1150 MR#: [id number] Acct: [id number] Name: BERTA SANCHES SCOTTIE Rep #:[id number] : 1945 79 From: Jeremy ferris MD PCP: JARROD Cantu Status:ADM I N Location: [place] [address] Subjective Subjective No new complaints today Objective [...] disease, stage 3b: PLAN: Reviewed records from [facility] where her primary care physician is, from care everywhere from [facility] During her hospitalization in October,[facility] where she was admitted in [...] had SMA thrombosis/stenosis, 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 She also has left-sided renal artery stenosis [...] Cosigner Signature (if applicable): CC: ~ Signed [facility] Work Phone: 1(165) 952-908507-09-2025 Progress note [facility] Medical Records Department [address] [place] [address] Progress Note - Nephrology 01/10/25 1150 MR#: [id number] Acct: [id number] Name: BERTA SANCHES Rep #:[id number] : 1945 79 From: Jeremy ferris MD PCP: JARROD Cantu Status:ADM I N Location: [place] [address] Subjective Subjective No new complaints today Objective [...] disease, stage 3b: PLAN: Reviewed records from [facility] where her primary care physician is, from care everywhere from [facility] During her hospitalization in October,[facility] where she was admitted [facility]. 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 She also has left-sided renal artery stenosis [...] Cosigner Signature (if applicable): CC: ~ Signed [facility]07-08-2025 Progress note Author Dianne Stovall [facility] Note Date/Time January 09, 2025 2:38p m [facility] Medical Records Department [address] [place] [address] Progress Note - Hospitalist 01/08/25 1849 MR#: [id number] Acct: [id number] Name: BERTA SANCHES Rep #:[id number] : 1945 79 From: Dianne Stovall DO PCP: Deysi Collazo AUTO WHEEL ALIGNMENT SPECIALIST-[place] Status:ADM I N Location: [place] [address] Reason for Visit Reason for Visit: Diagnoses [...] hospitalized recently [facility] for congestive heart failure. Patient told me she wanted to change patient support representative, I made her an appointment to follow-up [...] % (Auto) 47.3, Lymph % (Auto) 33.8, Addison % (Auto) 15.5 H, Eos % (Auto) [...] to call report. 11:17 p.m. Reading Location: [facility] Head/Neck CTA 01/07/25 23:08 IMPRESSION: BILATERAL CALCIFIC PLAQUE, PRIMARILY AT THE BIFURCATION BILATERALLY LESS THAN 50% STENOSIS. OCCASIONALLY OTHER PLAQUES ARE SEEN BUT NON FLOW LIMITING. NO LARGE VESSEL OCCLUSION. Requested contact with the referring physician at 11:55 p.m. verbal report to charge nurse Melida at 12:05 a.m. Reading Location: [facility] Carotid Duplex 01/08/25 05:04 Interpretation Summary [...] NIHSS: Ischemic Stroke/TIA Start: 01/08/25 00:49 Freq: V1YHCSP Status: Complete Protocol: Activity Type Activity Date Activity User E-sign Co-sign Detail Recorded Client Recorded Date Recorded By Document 01/08/25 03:22 [id number] 01/08/25 03:24 07/07/25 03:22 NIH Stroke Scale [...] and with change in RN caregiver. Freq: L0HCAOA Protocol: Activity Type Activity Date Activity User E-sign Co-sign Detail Recorded Client Recorded Date Recorded By Document 01/08/25 12:00 [id number] 01/08/25 12:10 01/08/25 12:00 NIH Stroke Scale [...] team: 35 minutes Visit Charges Inpatient E&M: 23852 Subs Hosp L2 01/09/25 1438<Electronically signed by Dianne Stovall DO> Cosigner Signature (if applicable): cc: ~* Signed [facility] Work Phone: 1(941) 583-702507-08-2025 Progress note Author Dianne Stovall [facility] Note Date/Time January 09, 2025 2:37p [facility] Medical Records Department [address] [place] [address] Progress Note - Hospitalist 01/09/25 1434 MR#: [id number] Acct: [id number] Name: BERTA SANCHES Rep #:[id number] : 1945 79 From: Dianne Stovall DO PCP: JARROD Cantu Status:ADM I N Location: [place] [address] Reason for Visit Reason for Visit: Diagnoses [...] 35 minutes Charges/Coding Visit Charges Inpatient E&M: 13589 Subs Hosp L2 NIHSS NIHSS Nursing Documentation NIHSS Nursing Documentation: NIHSS: Ischemic Stroke/TIA Start: 01/08/25 00:49 Freq: I9SORJO Status: Complete Protocol: Activity Type Activity Date Activity User E-sign Co-sign Detail Recorded Client Recorded Date Recorded By Document 01/08/25 03:22 [id number] 01/08/25 03:24 01/08/25 03:22 NIH Stroke Scale [...] and with change in RN caregiver. Freq: G0VLFMY Protocol: Activity Type Activity Date Activity User E-sign Co-sign Detail Recorded Client Recorded Date Recorded By Document 01/08/25 12:00 [id number] 01/08/25 12:10 01/08/25 12:00 NIH Stroke Scale [...] Cosigner Signature (if applicable): CC: ~ Signed [facility] Work Phone: 1(223) 371-976407-08-2025 Progress note [facility] Medical Records Department [address] [place] [address] Progress Note - Hospitalist 01/08/25 4061 MR#: [id number] Acct: [id number] Name: BERTA ASNCHES Rep #:[id number] : 1945 79 From: Dianne Stovall DO PCP: JARROD Cantu Status:ADM I N Location: [place] [address] Reason for Visit Reason for Visit: Diagnoses [...] intervention for this. Patient was also hospitalized [facility] for congestive heart failure. Patient told me she wanted to change patient support representative, I made her an appointment to follow-up [...] % (Auto) 47.3, Lymph % (Auto) 33.8, Addison % (Auto) 15.5 H, Eos % (Auto) [...] to call report. 11:17 p.m. Reading Location: [facility] Head/Neck CTA 01/07/25 23:08 IMPRESSION: BILATERAL CALCIFIC PLAQUE, PRIMARILY AT THE BIFURCATION BILATERALLY LESS THAN 50% STENOSIS. OCCASIONALLY OTHER PLAQUES ARE SEEN BUT NON FLOW LIMITING. NO LARGE VESSEL OCCLUSION. Requested contact with the referring physician at 11:55 p.m. verbal report to charge nurse Melida at12:05 a.m. Reading Location: [facility] Carotid Duplex 01/08/25 05:04 Interpretation Summary [...] NIHSS: Ischemic Stroke/TIA Start: 01/08/25 00:49 Freq: [id number] Status: Complete Protocol: Activity Type Activity Date Activity User E-sign Co-sign Detail Recorded Client Recorded Date Recorded By Document 01/08/25 03:22 [id number] 01/08/25 03:24 01/08/25 03:22 NIH Stroke Scale [...] and with change in RN caregiver. Freq: T4OTYAD Protocol: Activity Type Activity Date Activity User E-sign Co-sign Detail Recorded Client Recorded Date Recorded By Document 01/08/25 12:00 [id number] 01/08/25 12:10 01/08/25 12:00 NIH Stroke Scale [...] team: 35 minutes Visit Charges Inpatient E&M: 86895 Subs Hosp L2 01/09/25 1438 Cosigner Signature (if applicable): cc: ~* Signed [facility]07-08-2025 Progress note [facility] Medical Records Department [address] [place] [address] Progress Note - Hospitalist 01/09/25 1434 MR#: [id number] Acct: [id number] Name: BERTA SANCHES SCOTTIE Rep #:[id number] : 1945 79 From: Dianne Stovall DO PCP: Deysi Collazo, TALI-C Status:ADM I N Location: [place] [address] Reason for Visit Reason for Visit: Diagnoses [...] 35 minutes Charges/Coding Visit Charges Inpatient E&M: 87777 Subs Hosp L2 NIHSS NIHSS Nursing Documentation NIHSS Nursing Documentation: NIHSS: Ischemic Stroke/TIA Start: 01/08/25 00:49 Freq: F0TECGI Status: Complete Protocol: Activity Type Activity Date Activity User E-sign Co-sign Detail Recorded Client Recorded Date Recorded By Document 01/08/25 03:22 [id number] 01/08/25 03:24 01/08/25 03:22 NIH Stroke Scale [...] and with change in RN caregiver. Freq: S2MNQWU Protocol: Activity Type Activity Date Activity User E-sign Co-sign Detail Recorded Client Recorded Date Recorded By Document 01/08/25 12:00 [id number] 01/08/25 12:10 01/08/25 12:00 NIH Stroke Scale [...] Cosigner Signature (if applicable): CC: ~ Signed [facility]07-08-2025 Progress note Author Jeremy Mcgarry [facility] Note Date/Time January 09, 2025 12:22 pm [facility] Medical Records Department [address] [place] [address] Progress Note 01/09/25 1221 MR#: [id number] Acct: [id number] Name: BERTA SANCHES Rep #:[id number] : 1945 79 From: Jeremy ferris MD PCP: JARROD Cantu Status:ADM I N Location: [place] [address] Progress Note patient was in bathroom today [...] Cosigner Signature (if applicable): CC: ~ Signed [facility] Work Phone: 1(195) 359-419807-08-2025 Progress note [facility] Medical Records Department [address] [place] [address] Progress Note 01/09/25 1221 MR#: [id number] Acct: [id number] Name: BERTA SANCHES Rep #:[id number] : 1945 79 From: Jeremy ferris MD PCP: JARROD Cantu Status:ADM I N Location: [place] [address] Progress Note patient was in bathroom today could not examine labs reviewed cr stable plan continue lasix drip till closer to dry weight at dc add bumex 2 mg BID/lasix 80 mg BID continue aldactone metolazone 5 mg as needed KCL 20 meq daily will arrange follow up after dc 01/09/25 1222 Jeremy Mcgarry MD Cosigner Signature (if applicable): CC: ~ Signed [facility]07-08-2025 Discharge summary Author Dianne Stovall [facility] Note Date/Time January 09, 2025 9:02a m [facility] Medical Records Department [address] [place] [address] Instructions for Home/Discharge Instructions 01/08/25 1536 MR#: [id number] Acct: [id number] Name: BERTA SANCHES Rep #:[id number] : [...] Hernandez MD [Non-Staff] - Deysi Collazo NP, AUTO WHEEL ALIGNMENT SPECIALIST-C [Primary Care Provider] - Disposition Disposition (needs filled in before D/C Order can be placed): Home, Self Care 01/09/25901<Electronically signed by Dianne Stovall DO>Dianne Stovall DO CC: Josefina Arrieta; Chelsi Pulido; AUTO WHEEL ALIGNMENT SPECIALIST-C Deysi Collazo; Jonathan Funez; Charley Berger MD; Yamileth Hassan MD; Teo Blue MD; Dr. Lindsey Francisco MD; Dr. Tacos Edouard MD; Dr. Sydney Jarvis MD; Dr. Tai Chavez MD; Dr. Marty Hopkins MD;Dr. Jermey Mcgarry MD; Dr. Jose John MD; Dr. Panda Hein DO; Dr. Tulio Pittman MD; Dr. Lili Newman MD; Dr. Radha Heller MD; Dr. Red Lucia MD; Dr. Gurpreet Geronimo MD; Dr. Noris Brock MD; Karyna Gates DO; Jessa Lee MD ~ Signed [facility] Work Phone: 1(495) 489-409907-08-2025 Discharge summary [facility] Medical Records Department [facility] [place] [address] Instructions for Home/Discharge Instructions 01/08/25 1536 MR#: [id number] Acct: [id number] Name: BERTA SANCHES Rep #:[id number] : [...] Hernandez MD [Non-Staff] - Deysi Collazo NP, AUTO WHEEL ALIGNMENT SPECIALIST-C [Primary Care Provider] - Disposition Disposition (needs filled in before D/C Order can be placed): Home, Self Care 01/09/25 0902Dianne Stovall DO CC: Josefina Arrieta; Chelsi Pulido; AUTO WHEEL ALIGNMENT SPECIALIST-C Deysi Collazo; Jonathan Funez; Charley Berger MD; [...] Gates DO; Jessa Lee MD ~ Signed [facility]07-07-2025 Consult note Author Jeremy Mcgarry [facility] Note Date/Time January 08, 2025 5:03p [facility] Medical Records Department [address] [place] [address] Consultation - Nephrology 01/08/25 1655 MR#: [id number] Acct: [id number] Name: BERTA SANCHES SCOTTIE Rep #:[id number] : 1945 79 From: Jeremy ferris MD PCP: Deysi Haagen, AUTO WHEEL ALIGNMENT SPECIALIST-C Status:ADM I N Location: [place] [id number]- [id number] Assessment & Plan Assessment/Plan (1) Chronic kidney disease, stage 3b: PLAN: Reviewed records from [facility] where her primary care physician is, from care everywhere from [facility] During her hospitalization in October,[facility] where she was admitted in [...] had SMA thrombosis/stenosis, 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 She also has left-sided renal artery stenosis [...] complicated course recently. She is originally from [place], was in [place] for the winter, had a long hospitalization in [facility]. History of congestive heart failure with diastolic dysfunction, BNP has been consistently high. Was seeing cardiology at [facility]. Has been on diuretic, despite that worsening heart failure. Apparently gained more than 10 pounds. Baseline weight is around 140 pounds, went up to 154 pounds. Being started on Lasix drip. [facility] Medical History (Updated 01/08/25 @ 16:58 [...] % (Auto) 47.3, Lymph % (Auto) 33.8, Addison % (Auto) 15.5 H, Eos % (Auto) [...] to call report. 11:17 p.m. Reading Location: [facility] Head/Neck CTA 01/07/25 23:08 IMPRESSION: BILATERAL CALCIFIC PLAQUE, PRIMARILY AT THE BIFURCATION BILATERALLY LESS THAN 50% STENOSIS. OCCASIONALLY OTHER PLAQUES ARE SEEN BUT NON FLOW LIMITING. NO LARGE VESSEL OCCLUSION. Requested contact with the referring physician at 11:55 p.m. verbal report to charge nurse Melida at 12:05 a.m. Reading Location: [facility] Carotid Duplex 01/08/25 05:04 Interpretation Summary Mild (<50%) stenosis right extracranial internal carotid. Mild (<50%) stenosis left extracranial internal carotid. Patent and antegrade vertebrals bilaterally. Ordering Physician: Carla Ha Referring Physician: Deysi Collazo Performed By: Sony Perez RVT 01/08/25 1703 <Electronically signed by Jeremy Mcgarry MD> Cosigner Signature (if applicable): CC: AUTO WHEEL ALIGNMENT SPECIALIST-C Deysi Collazo~ Signed [facility] Work Phone: 1(957) 580-988407-07-2025 Progress note Author Noris Brock [facility] Note Date/Time January 08, 2025 3:23p m [facility] Medical Records Department [address] [place] [address] Progress Note - Neurology 01/08/25 1514 MR#: [id number] Acct: [id number] Name: BERTA SANCHES SCOTTIE Rep #:[id number] : 1945 79 From: Noris Brock MD PCP: JARROD Cantu Status:ADM I N Location: [place] [address] Objective Data Objective Data Vital Signs: Vital [...] % (Auto) 47.3, Lymph % (Auto) 33.8, Addison % (Auto) 15.5 H, Eos % (Auto) [...] to call report. 11:17 p.m. Reading Location: [facility] Head/Neck CTA 01/07/25 23:08 IMPRESSION: BILATERAL CALCIFIC PLAQUE, PRIMARILY AT THE BIFURCATION BILATERALLY LESS THAN 50% STENOSIS. OCCASIONALLY OTHER PLAQUES ARE SEEN BUT NON FLOW LIMITING. NO LARGE VESSEL OCCLUSION. Requested contact with the referring physician at 11:55 p.m. verbal report to charge nurse Melida at 12:05 a.m. Reading Location: [facility] Carotid Duplex 01/08/25 05:04 Interpretation Summary [...] NIHSS: Ischemic Stroke/TIA Start: 01/08/25 00:49 Freq: [id number] Status: Complete Protocol: Activity Type Activity Date Activity User E-sign Co-sign Detail Recorded Client Recorded Date Recorded By Document 01/08/25 03:22 [id number] 01/08/25 03:24 RM 01/08/25 03:22 NIH Stroke [...] and with change in RN caregiver. Freq: [id number] Protocol: Activity Type Activity Date Activity User E-sign Co-sign Detail Recorded Client Recorded Date Recorded By Document 01/08/25 12:00 [id number] 01/08/25 12:10 01/08/25 12:00 NIH Stroke Scale [...] Cosigner Signature (if applicable): CC: ~ Signed [facility] Work Phone: 1(511) 499-907507-07-2025 Consult note [facility] Medical Records Department [address] [place] [address] Consultation - Nephrology 01/08/25 1655 MR#: [id number] Acct: [id number] Name: BERTA SANCHES Rep #:[id number] : 1945 79 From: Jeremy ferris MD PCP: JARROD Cantu Status:ADM I N Location: [place] [address] Assessment & Plan Assessment/Plan (1) Chronic kidney disease, stage 3b: PLAN: Reviewed records from [facility] where her primary care physician is, from care everywhere from [facility] During her hospitalization in October,[facility] where she was admitted [facility]. 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 She also has left-sided renal artery stenosis [...] complicated course recently. She is originally from [place], was in [place] for the winter, had a long hospitalization in [facility]. History of congestive heart failure with diastolic dysfunction, BNP has been consistently high. Wasseeing cardiology at [facility]. Has been on diuretic, despite that worsening heart failure. Apparently gained more than 10 pounds. Baseline weight is around 140 pounds, went up to 154 pounds. Being started on Lasix drip. [facility] Medical History (Updated 01/08/25 @ 16:58 [...] % (Auto) 47.3, Lymph % (Auto) 33.8, Addison % (Auto) 15.5 H, Eos % (Auto) [...] to call report. 11:17 p.m. Reading Location: [facility] Head/Neck CTA 01/07/25 23:08 IMPRESSION: BILATERAL CALCIFIC PLAQUE, PRIMARILY AT THE BIFURCATION BILATERALLY LESS THAN 50% STENOSIS. OCCASIONALLY OTHER PLAQUES ARE SEEN BUT NON FLOW LIMITING. NO LARGE VESSEL OCCLUSION. Requested contact with the referring physician at 11:55 p.m. verbal report to charge nurse Melida at12:05 a.m. Reading Location: [facility] Carotid Duplex 01/08/25 05:04 Interpretation Summary Mild (<50%) stenosis right extracranial internal carotid. Mild (<50%) stenosis left extracranial internal carotid. Patent and antegrade vertebrals bilaterally. Ordering Physician: Carla Ha Referring Physician: Deysi Collazo Performed By: Sony Perez RVT 01/08/25 1703 Cosigner Signature (if applicable): CC: AUTO WHEEL ALIGNMENT SPECIALIST-C Deysi Collazo~ Signed [facility]07-07-2025 Progress note [facility] Medical Records Department [address] [place] [address] Progress Note - Neurology 01/08/25 1514 MR#: [id number] Acct: [id number] Name: TAMERA SANCHESRA RUBIN Rep #:[id number] : 1945 79 From: Noris Brock MD PCP: JARROD Cantu Status:ADM I N Location: [place] [address] Objective Data Objective Data Vital Signs: Vital [...] % (Auto) 47.3, Lymph % (Auto) 33.8, Addison % (Auto) 15.5 H, Eos % (Auto) [...] to call report. 11:17 p.m. Reading Location: [facility] Head/Neck CTA 01/07/25 23:08 IMPRESSION: BILATERAL CALCIFIC PLAQUE, PRIMARILY AT THE BIFURCATION BILATERALLY LESS THAN 50% STENOSIS. OCCASIONALLY OTHER PLAQUES ARE SEEN BUT NON FLOW LIMITING. NO LARGE VESSEL OCCLUSION. Requested contact with the referring physician at 11:55 p.m. verbal report to charge nurse Melida at12:05 a.m. Reading Location: [facility] Carotid Duplex 01/08/25 05:04 Interpretation Summary [...] NIHSS: Ischemic Stroke/TIA Start: 01/08/25 00:49 Freq: [id number] Status: Complete Protocol: Activity Type Activity Date Activity User E-sign Co-sign Detail Recorded Client Recorded Date Recorded By Document 01/08/25 03:22 [id number] 01/08/25 03:24 01/08/25 03:22 NIH Stroke Scale [...] and with change in RN caregiver. Freq: U1ZFCMP Protocol: Activity Type Activity Date Activity User E-sign Co-sign Detail Recorded Client Recorded Date Recorded By Document 01/08/25 12:00 [id number] 01/08/25 12:10 01/08/25 12:00 NIH Stroke Scale [...] Cosigner Signature (if applicable): CC: ~ Signed [facility]07-07-2025 Progress note Author Carla Barksdale [facility] Note Date/Time January 08, 2025 1:58a m [facility] Medical Records Department [address] [facility] [place] [address] Progress Note - Hospitalist 01/07/25 2335 MR#: [id number] Acct: [id number] Name: BERTA SANCHES SCOTTIE Rep #:[id number] : 1945 79 From: Carla Rashid DO PCP: JARROD Cantu Status:ADM I N Location: [place] [address] Hospitalist Note Stroke alert was called overhead [...] in 24 hours as per neurology recommendations. CLOTHES WRINGER was updated with plan. [facility] Imaging Services [address] [place] [address] STROKE Brain/Head without Cont MR#: [id number] Acct: [id number] Name: BERTA SANCHES Rep #: [id number] : 1945 F 79 From: Jonathan Paul DO PCP: JARROD Cantu Status: ADM IN Study: STROKE Brain/Head without Cont Date of Exam: 01/07/25 Exam# [id number] Ordering Dr: Carla Ha DO PROCEDURE: STROKE [...] to call report. 11:17 p.m. Reading [facility] CC: JARROD Collazo; Dr. Carla Ha DO ~ Smt Technician: Signed ----- [facility] Imaging Services [address] [place] [address] STROKE CTA Head AND Neck W/Con MR#: [id number] Acct: [id number] Name: BERTA SANCHES Rep #: [id number] : 1945 F 79 From: Jonathan Paul DO PCP: JARROD Cantu Status: ADM IN Study: STROKE CTA Head AND Neck W/Con Date of Exam: 01/07/25 Exam# [id number] Ordering Dr: Carla Ha DO PROCEDURE: STROKE [...] nurse Melida at 12:05 a.m. Reading Location: [facility] CC: AUTO WHEEL ALIGNMENT SPECIALIST-C Deysi Collazo; Dr. Carla Ha DO ~ Smt Technician: Signed 01/08/25 0158 <Electronically signed by Carla Ha DO> Cosigner Signature (if applicable): CC: ~ Signed [facility] Work Phone: 1(677) 588-776407-07-2025 Progress note [facility] Medical Records Department [address] [place] [address] Progress Note - Hospitalist 01/07/25 5445 MR#: [id number] Acct: [id number] Name: BERTA SANCHES Rep #:[id number] : 1945 79 From: Carla Rashid DO PCP: JARROD Cantu Status:ADM I N Location: [place] [id number] Hospitalist Note Stroke alert was called overhead [...] in 24 hours as per neurology recommendations. CLOTHES WRINGER was updated with plan. [facility] Imaging Services [address] [place] [address] STROKE Brain/Head without Cont MR#: [id number] Acct: [id number] Name: BERTA SANCHES Rep #: [id number] : 1945 F 79 From: Jonathan Paul DO PCP: JARROD Cantu Status: ADM IN Study: STROKE Brain/Head without Cont Date of Exam: 01/07/25 Exam# [id number] Ordering Dr: Carla Ha DO PROCEDURE: STROKE [...] to call report. 11:17 p.m. Reading Location: [facility] CC: HOWARDC Deysi Collazo; Dr. Carla Ha DO ~ Smt Technician: Signed [facility] Imaging Services [address] [place] [address] STROKE CTA Head AND Neck W/Con MR#: [id number] Acct: [id number] Name: BERTA SANCHES SCOTTIE Rep #: [id number] : 1945 F 79 From: Jonathan Paul DO PCP: JARROD Cantu Status: ADM IN Study: STROKE CTA Head AND Neck W/Con Date of Exam: 01/07/25 Exam# [id number] Ordering Dr: Carla Ha DO PROCEDURE: STROKE [...] charge nurse Melida at12:05 a.m. Reading Location: [facility] CC: JARROD Collazo; Dr. Carla Ha DO ~ Smt Technician: Signed 01/08/25 0158 Cosigner Signature (if applicable): CC: ~ Signed [facility]07-07-2025 Radiology Diagnostic study note [facility] Imaging Services [address] [place] [id number] STROKE CTA Head AND Neck W/Con MR#: [id number] Acct: [id number] Name: BERTA SANCHES Rep #: [id number] : 1945 F 79 From: Pet er Humberto CURRY PCP: JARROD Cantu Status: ADM I N Study:STROKE CTA Head AND Neck W/Con Date of Exam: 01/07/25 Exam# [id number] Ordering Dr: Carla Rayo DO PROCEDURE: STROKE [...] charge nurse Melida at12:05 a.m. Reading Location[facility] CC: JARROD Collazo; DO Varsha Roldan Smt Technician: Signed [facility]07-06-2025 Radiology Diagnostic study note [facility] Imaging Services [address] [place], [place] [id number] STROKE Brain/Head without Cont MR#: [id number] Acct: [id number] Name: BERTA SANCHES Rep #: [id number] : 1945 F 79 From: Pet er Peer PCP: JARROD Cantu Status: ADM I N Study:STROKE Brain/Head without Cont Date of Exam: 01/07/25 Exam# [id number] Ordering Dr: Carla Rayo DO PROCEDURE: STROKE [...] to call report. 11:17 p.m. Reading Location: [facility] CC: AUTO WHEEL ALIGNMENT SPECIALIST-Ivett Collazo; Dr. Carla Ha DO ~ Smt Technician: Signed [facility]07-06-2025 Discharge summary Author Sheree Simmons [facility] Note Date/Time January 07, 2025 5:04p m [facility] Medical Records Department [address] [place] [address] Emergency Department Summary 01/07/25 MR#: [id number] Acct: [id number] Name: TAMERA SANCHESRA RUBIN Rep #:[id number] : 1945 79 From: Sheree KING PCP: JARROD Cantu Status:ADM I N Location: [address] [facility] <FERNANDO Uriostegui - Last Filed: 01/07/25 [...] in September 2023 she had surgery in [place] for some type of intra-abdominal artery blockage and was started on Plavix in addition to her baseline aspirin 81 mg. She states she was also having issues with her congestive heart failure. She came home at the end of October and has been taking her normal Lasix 40 mg twice daily and spironolactone 12.5 mg twice daily without improvement. She saw her [facility] clinic patient support representative Dr. Burdick on January 01. He changed [...] is from allergies but no significant cough. [facility] <FERNANDO Uriostegui - Last Filed: 01/07/25 16:48> [facility] Medical History (Updated 01/07/25 @ 17:04 [...] Oxygen Delivery Method Room Air Room Air [facility] <FERNANDO Uriostegui - Last Filed: 01/07/25 16:48> [facility] Narrative Medical decision making narrative: [...] dose of Lasix as instructed by her patient support representative without improvement. She is awake alertno distress. [...] failure. 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 She was hospitalized for 23days. She is followed by patient support representative through the [facility]. She statesshe has difficulty contacting him and seeing him. She was offered option to follow-up with patient support representative in [place]. Patient denies fever, chills night sweats. Patient [...] % (Auto) 59.8 Lymph % (Auto) 24.2 Addison % (Auto) 12.9 H Eos % (Auto) [...] Hr 68 H* [place] [address] H Radiography Diagnostic Testing: Clinical Impression(s) from Imaging Studies Chest X-Ray 01/07/25 13:19 IMPRESSION: Findings consistent with mild congestive heart failure. Reading Location: [id number] ED attending interpretation of 2 view chest x-ray shows mild congestive heart failure. EKG Initial EKG: Attestation: I personally reviewed and interpreted this EKG as follows: Interpretation: No Acute Injury Pattern and Atrial Fibrillation Comments: Atrial fibrillation at 77 bpm, occasional ventricular paced complexes Left anterior fascicular block Nonspecific ST changes, no STEMI <Dr. Luis Armando Harry MD - Last Filed: 01/07/25 17:04> [facility] MDM Narrative Medical decision making narrative: History gathered from: Patient and spouse 79-year-old female presents with several weeks of dyspnea and bilateral lower extremity edema. She has had tight swelling from both thighs and down for several weeks. Over the last 5 days she has been taking an increased dose of Lasix as instructed by her patient support representative without improvement. She is awake alertno distress. [...] failure. 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 She was hospitalized for 23days. She is followed by patient support representative through the [facility]. She statesshe has difficulty contacting him and seeing him. She was offered option to follow-up with patient support representative in [place]. Patient denies fever, chills night sweats. Patient [...] % (Auto) 59.8 Lymph % (Auto) 24.2 Addison % (Auto) 12.9 H Eos % (Auto) [...] Hr 68 H* [place] [address] H Radiography Diagnostic Testing: Clinical Impression(s) from Imaging Studies Chest X-Ray 01/07/25 13:19 IMPRESSION: Findings consistent with mild congestive heart failure. Reading Location: [id number] Management Discussion w/another healthcare provider: Hospitalist (Documented [...] your Primary Care Provider. Call [facility] ([phone]) or report to the closest Emergency Room. Call 911 if necessary. 01/07/25 1648 <Electronically signed by Sheree KING> Cosigner Signature (if applicable): 01/07/25 1704 <Electronically signed by Romel UGARTE> CC: TALI-C Deysi Collazo ~ Signed [facility] Work Phone: 1(467) 646-631807-06-2025 History and physical note Author Radha Heller [facility] Note Date/Time January 07, 2025 4:35p m [facility] Medical Records Department [address] [place] [address] H&P Exam - Hospitalist 01/07/25 1629 MR#: [id number] Acct: [id number] Name: BERTA SANCHES Rep #:[id number] : [...] post Watchman device, congestive heart failure presented [facility] ED 01/07/2025 with several weeks of shortness of breath and bilateral lower extremity edema. Reportedly in September 2023 she had surgery in [place] for some kind of intra-abdominal artery blockageand was placed on Plavix and aspirin and was having difficulties with her heart failure at that time. She came home at the end of October and has been taking herLasix 40 twice daily and spironolactone 12.5 mg twice daily without improvement. She recently followed with her [facility] patient support representative with increase in her Lasix by mouth [...] bowel or bladder changes. ROS otherwise negative [facility] Medical History Anxiety Brain aneurysm Bronchospasm [...] % (Auto) 59.8, Lymph % (Auto) 24.2, Addison % (Auto) 12.9 H, Eos % (Auto) [...] Sens 71 H*, [place] [address] H 01/07/25 14:54: Troponin T Hi Sens 2 Hr 68 H* Imaging Radiology Impression Chest X-Ray 01/07/25 13:19 IMPRESSION: Findings consistent with mild congestive heart failure. Reading Location: [facility] Assessment & Plan Assessment/Plan (1) [...] Heller MD Charges/Coding Visit Charges Inpatient E&M: 53803 Init Hosp L2 01/07/25 1635 <Electronically signed by Radha Heller MD> Cosigner Signature (if applicable): CC: JARROD Collazo; Dr. Radha Heller MD~ Signed [facility] Work Phone: 1(315) 780-377307-06-2025 Evaluation note* Diagnosis Onset Date Resolution Status Admit Date MONIQUE (acute kidney injury) acute January 07, 2025 4:29pm CHF exacerbation acute January 4:29pm Chronic kidney disease, stage 3b acu te January 07, 2025 4:29pm [facility] Work Phone: 1(384) 237-509007-06-2025 Evaluation note* Diagnosis Onset Date Resolution Status Admit Date Chronic kidney disease, stage 3b acu te January 07, 2025 4:29pm MONIQUE (acute kidney injury) inactive January 07, 2025 4:29pm CHF exacerbation inactive January 4:29pm [facility] Work Phone: 1(168) 931-983007-06-2025 Evaluation note* Diagnosis Onset Date Resolution Status Admit Date Chronic kidney disease, stag e 3b acute January 07, 2025 4 :29pm MONIQUE (acute kidney injury) inactive January 07, 2025 4:29pm CHF exacerbation inactive January 4:29pm Chronic renal failure (CRF), stage 3b acute February 05, 2025 8:53am [facility] Work Phone: 1(737) 961-231407-06-2025 Evaluation note* Diagnosis Onset Date Resolution Status [...] atrial fibrillation) chronic February 05, 2025 8:53am [facility] Work Phone: 1(949) 162-652007-06-2025 Evaluation note* Diagnosis Onset Date Resolution Status [...] closure device acute February 08, 2025 9:56am [facility] [employer] Work Phone: 1(500) 348-331207-06-2025 Evaluation note* Diagnosis Onset Date Resolution Status [...] March 012024 8:49am PAD (peripheral artery disease) synchronizer april March 01, 2025 8:49am PAF (paroxysmal atrial fibrillation) chronic March 01 8:49am [facility] Work Phone: 1(339) 550-616107-06-2025 Evaluation note* Diagnosis Onset Date Resolution Status [...] 8:57am Anemia noneactive March 13, 2025 1:46pm [facility] [facility] Work Phone: 1(341) 670-828007-06-2025 Evaluation note* Diagnosis Onset Date Resolution Status [...] atrial fibrillation) chronic March 15, 2025 11:00am [facility] Work Phone: 1(550) 944-414107-06-2025 Evaluation note* Diagnosis Onset Date Resolution Status [...] atrial fibrillation) chronic March 29, 2025 11:00am [facility] Work Phone: 1(634) 573-173007-06-2025 Evaluation note* Diagnosis Onset Date Resolution Status [...] (paroxysmal atrial fibrillation) chronic April 05 10:53am [facility] Work Phone: 1(744) 478-604007-06-2025 Discharge summary [facility] Medical Records Department [address] [place] [id number] Emergency Department Summary 01/07/25 MR#: [id number] Acct: [id number] Name: BERTA SANCHES SCOTTIE Rep #:[id number] : 1945 79 From: Sheree KING PCP: JARROD Cantu Status:ADM I N Location: [address] History of Present Illness Chief Complaint: [...] in September 2023 she had surgery in [place] for some type of intra-abdominal artery blockage and was started on Plavix in addition to her baseline aspirin 81 mg. She states she was also having issues with her congestive heart failure. She came home atthe end of October and has been taking her normal Lasix 40 mg twice daily and spironolactone 12.5 mg t wice daily without improvement. She saw her [facility] clinic patient support representative Dr. Burdick on January 01. He changed [...] is from allergies but no significant cough. [facility] Medical History (Updated 01/07/25 @ 17:04 [...] dose of Lasix as instructed by her patient support representative without improvement. She is awake alertno distress. [...] failure. 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 She was hospitalized for 23days. She is followed by patient support representative through the [facility]. She statesshe has difficulty contacting him and seeing him. She was offered option to follow-up with patient support representative in [place]. Patient denies fever, chills night sweats. Patient [...] % (Auto) 59.8 Lymph % (Auto) 24.2 Addison % (Auto) 12.9 H Eos % (Auto) [...] Hr 68 H* [place] [address] H Radiography Diagnostic Testing: Clinical Impression(s) from Imaging Studies Chest X-Ray 01/07/25 13:19 IMPRESSION: Findings consistent with mild congestive heart failure. Reading Location: [id number] ED attending interpretation of 2 view chest [...] dose of Lasix as instructed by her patient support representative without improvement. She is awake alertno distress. [...] failure. 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 She was hospitalized for 23days. She is followed by patient support representative through the [facility]. She statesshe has difficulty contacting him and seeing him. She was offered option to follow-up with patient support representative in [place]. Patient denies fever, chills night sweats. Patient [...] % (Auto) 59.8 Lymph % (Auto) 24.2 Addison % (Auto) 12.9 H Eos % (Auto) [...] Hr 68 H* [place] [address] H Radiography Diagnostic Testing: Clinical Impression(s) from Imaging Studies Chest X-Ray 01/07/25 13:19 IMPRESSION: Findings consistent with mild congestive heart failure. Reading Location: [facility] Management Discussion w/another healthcare provider: [...] your Primary Care Provider. Call [facility] ([phone]) or report tothe closest Emergency Room. Call 911 if necessary. 01/07/25 1648 Cosigner Signature (if applicable): 01/07/25 1704 CC: AUTO WHEEL ALIGNMENT SPECIALIST-C Deysi Collazo ~ Signed [facility]07-06-2025 History and physical note [facility] Medical Records Department [address] [place] [address] H&P Exam - Hospitalist 01/07/25 1629 MR#: [id number] Acct: [id number] Name: BERTA SANCHES Rep #:[id number] : [...] post Watchman device, congestive heart [facility] with several weeks of shortness of breath and bilateral lower extremity edema. Reportedly in September 2023 she had surgery in [place] for some kind of intra-abdominal artery blockageand was placed on Plavix and aspirin and was having difficulties with her heart failure at that time. She came home at the end of October and has been taking herLasix 40 twice daily and spironolactone 12.5 mg twice daily without improvement. She recently followed with her [facility] patient support representative with increase in her Lasix by mouth but has not had improvement. Patient is having somewhat shortness of breath on exertion that she is having difficulty with her ADLs and notes her legs feel so tight and swollen that she has difficulty bending over tochange her close/completing ADLs. In the ED [id number], heart rate 78 with blood pressure 135/57, [...] bowel or bladder changes. ROS otherwise negative [facility] Medical History Anxiety Brain aneurysm Bronchospasm [...] % (Auto) 59.8, Lymph % (Auto) 24.2, [place]ison % (Auto) 12.9 H, Eos % (Auto) [...] Sens 71 H*, [place] [address] H 01/07/25 14:54: Troponin T Hi Sens 2 Hr 68 H* Imaging Radiology Impression Chest X-Ray 01/07/25 13:19 IMPRESSION: Findings consistent with mild congestive heart failure. Reading Location: [id number] Assessment & Plan Assessment/Plan (1) CHF exacerbation: [...] Heller MD Charges/Coding Visit Charges Inpatient E&M: 09978 Init Hosp L2 01/07/25 1635 Cosigner Signature (if applicable): CC: JARROD Collazo; Dr. Radha Heller MD~ Signed [facility]07-06-2025 Radiology Diagnostic study note [facility] Imaging Services [address] [place], [place] [id number] Chest PA and Lateral MR#: [id number] Acct: [id number] Name: BERTA SANCHES Rep #: [id number] : 1945 F 79 From: Nahum Trinidad MD PCP: JARROD Cantu Status: REG E R Study:Chest PA and Lateral Date of Exam: 01/07/25 Exam# [id number] Ordering Dr: Sheree Haynes PROCEDURE: CHEST PA [...] with mild congestive heart failure. Reading Location: [id number] CC: JARROD Collazo; FERNANDO Uriostegui ~ Smt Technician: Signed [facility] Work Phone: [phone] Discharge summary Author Sheree Simmons [facility] Note Date/Time January 07, 2025 5:04p m [facility] System Medical Records Department [address] [place] [address] Emergency Department Summary 01/07/25 MR#: [id number] Acct: [id number] Name: BERTA SANCHES Rep #:[id number] : 1945 79 From: Sheree KING PCP: JARROD Cantu Status:ADM I N Location: [address] <FERNANDO Uriostegui - Last Filed: 01/07/25 [...] in September 2023 she had surgery in [place] for some type of intra-abdominal artery blockage and was started on Plavix in addition to her baseline aspirin 81 mg. She states she was also having issues with her congestive heart failure. She came home at the end of October and has been taking her normal Lasix 40 mg twice daily and spironolactone 12.5 mg twice daily without improvement. She saw her [facility] clinic patient support representative Dr. Burdick on January 01. He changed [...] <FERNANDO Uriostegui - Last Filed: 01/07/25 16:48> [facility] Medical History (Updated 01/07/25 @ 17:04 [...] Oxygen Delivery Method Room Air Room Air [facility] <FERNANDO Uriostegui - Last Filed: 01/07/25 16:48> [facility] Narrative Medical decision making narrative: [...] dose of Lasix as instructed by her patient support representative without improvement. She is awake alertno distress. [...] failure. 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 She was hospitalized for 23days. She is followed by patient support representative through the [facility]. She statesshe has difficulty contacting him and seeing him. She was offered option to follow-up with patient support representative in [place]. Patient denies fever, chills night sweats. Patient [...] % (Auto) 59.8 Lymph % (Auto) 24.2 Addison % (Auto) 12.9 H Eos % (Auto) [...] Hr 68 H* [place] [address] H Radiography Diagnostic Testing: Clinical Impression(s) from Imaging Studies Chest X-Ray 01/07/25 13:19 IMPRESSION: Findings consistent with mild congestive heart failure. Reading Location: [facility] ED attending interpretation of 2 [...] dose of Lasix as instructed by her patient support representative without improvement. She is awake alertno distress. [...] failure. 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 She was hospitalized for 23days. She is followed by patient support representative through the [facility]. She statesshe has difficulty contacting him and seeing him. She was offered option to follow-up with patient support representative in [place]. Patient denies fever, chills night sweats. Patient [...] % (Auto) 59.8 Lymph % (Auto) 24.2 Addison % (Auto) 12.9 H Eos % (Auto) [...] Hr 68 H* [place] [address] H Radiography Diagnostic Testing: Clinical Impression(s) from Imaging Studies Chest X-Ray 01/07/25 13:19 IMPRESSION: Findings consistent with mild congestive heart failure. Reading Location: [id number] Management Discussion w/another healthcare provider: Hospitalist (Documented [...] your Primary Care Provider. Call [facility] ([phone]) or report to the closest Emergency Room. Call 911 if necessary. 01/07/25 1648 <Electronically signed by Sheree KING> Cosigner Signature (if applicable): 01/07/25 1704 <Electronically signed by Romel UGARTE> CC: AUTO WHEEL ALIGNMENT SPECIALIST-C Deysi Collazo ~ Signed [facility] Work Phone: 1(774) 838-334306-30-2025 Instructions* Patient Instructions* Carla Burdick MD - 01/01/2025 11:12 AM EDT I have written you for lasix 40 mg pills Take two in the morning (80 mg) and one (40 mg) in the afternoon for this week Wed-Wednesday Repeat blood work next wednesday documented in this encounterS[facility]-30-[facility]25 History of Present illness Narrative* Carla Burdick MD - 01/01/2025 11:00 AM EDT Images from the original note were not included. [facility] SECTION OF REGIONAL CARDIOLOGY Cardiology ([facility]) [address] [facility] [address] OUTPATIENT VISIT DATE 01/01/2025 PRIMARY CARE PHYSICIAN: Doreen Le [address] [place] [address] HISTORY OF PRESENT ILLNESS: Ms. Sanches is a 79 year old woman with a history of remote aortic valve replacement with homograft in 1996 and possible repair of the ascending aorta, chronic diastolic congestive heart failure, hypertension, dyslipidemia, atrial fibrillation with history of pulmonary vein isolation procedures, pacemaker placement and watchman procedure who presents for follow-up. Patient was admitted to [place] [facility]. 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 Lua PACEMAKER 10/2019 PART. HYSTERECTOMY W/WO RMVL OVARIES/TUBES 1974 h/o cervical cancer ovaries remain PAST SURGICAL HISTORY OF 1996 Aortic valve repair, Dr. Apodaca PAST SURGICAL HISTORY OF 2001 [address] Beltrán, [facility] PAST SURGICAL HISTORY OF 2015 clipping [...] !SVR !1650dyn-sec/cm5 ! + + + !SVRI !0313apw-fem-q^2/cm5 ! + + + !PVR !544dyn-sec/cm5 ! + + + !PVRI !053seq-chx-y^2/cm5 ! + + + !Total systemic resistance!2097dyn-sec/cm5, 1931ljf-uzh-z^2/cm5! Echocardiogram David Melendez 10/03/2024: 1. Left ventricle: [...] or suggestive of Atrial Fibrillation * AT/AF [place]: 67.8% * Total number of events: 2774 Tachycardia: AF w/RVR * Stored EGMs listed as NSVT AND SVT are consistent with or suggestive of Atrial Fibrillation with Rapid Ventricular Response * AT/AF [place]: 67.8% * Total episodes: 9 * Longest [...] She underwent SMA stent placement at [facility] September 2024. She has been treated for [...] daily. Carla Burdick MD documented in this encounterScci Hospital [facility]ima06-30-2025 NoteHNO ID: [id number] Author: CARLA BURDICK MD Service: ? Author Type: Physician Type: Progress Notes Filed: 01/01/2025 12:27 Note Text: [facility] SECTION OF REGIONAL CARDIOLOGY Cardiology ([facility]) [address] [facility] [address] OUTPATIENT VISIT DATE 01/01/2025 PRIMARY CARE PHYSICIAN: Doreen Le [address] [place] [address] HISTORY OF PRESENT ILLNESS: Ms. Sanches is a 79 year old woman with a history of remote aortic valve replacement with homograft in 1996 and possible repair of the ascending aorta, chronic diastolic congestive heart failure, hypertension, dyslipidemia, atrial fibrillation with history of pulmonary vein isolation procedures, pacemaker placement and watchman procedure who presents for follow-up. Patient was admitted to [facility]. 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 [...] mg iron) tabl (more content not included)... [facility]06-24-2025 Telephone encounter Note* Telephone Encounter - [...] answered at this time. Albin Gu APRN.CNP [facility] Miscellaneous Notes* Telephone Encounter - Albin Gu [...] time. Albin Gu APRN.CNP documented in this encounterScci Hospital Lima06-18-2025 NoteHNO ID: [id number] Author: LARS SILVA, DO Service: ? Author Type: Physician Type: Progress Notes Filed: 12/20/2024 17:56 Note Text: [facility] [place] DEPARTMENT OF VASCULAR SURGERY OUTPATIENT VISIT DATE [...] clinic. She had a stent placed in [place] in September. She was recently admitted to [facility] for anemia. She has noted increased swelling. 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 Lua PACEMAKER 10/2019 PART. HYSTERECTOMY W/WO RMVL OVARIES/TUBES 1974 h/o cervical cancer ovaries remain PAST SURGICAL HISTORY OF 1996 Aortic valve repair, Dr. Apodaca PAST SURGICAL HISTORY OF 2001 [address] Beltrán, [facility] PAST SURGICAL HISTORY OF 2016 clipping [...] procedure on 01/12/22, treate (more content not included)...[facility]06-18-2025 History of Present illness Narrative* Lars Silva, - 12/20/2024 8:53 AM EDT Images from the original note were not included. [facility] [place] DEPARTMENT OF VASCULAR SURGERY OUTPATIENT VISIT DATE December 20, 2024 OUTPATIENT VISIT TYPE ESTABLISHED SERVICE DATE: 12/20/2024 SERVICE TIME: 8:53 AM PRIMARY CARE PHYSICIAN: Deysi Collazo APRN.CNP HISTORY OF PRESENT ILLNESS: Ms. Snaches is a 79 year old female who presents today for a vascular surgery follow-up visit follow up on mesenteric duplex. She recently increased her lasix at the CHF clinic. She had a stent placed in [place] in September. She was recently admitted to [facility] for anemia. She has noted increased swelling. 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 Lua PACEMAKER 10/2019 PART. HYSTERECTOMY W/WO RMVL OVARIES/TUBES 1973 h/o cervical cancer ovaries remain PAST SURGICAL HISTORY OF 1996 Aortic valve repair, Dr. Apodaca PAST SURGICAL HISTORY OF 2001 [address] Beltrán, [facility] PAST SURGICAL HISTORY OF 2016 clipping [...] 2024 TIME: 8:53 AM documented in this encounterScci Hospital Lima06-17-2025 NoteHNO ID: [id number] Author: GWEN VALENTINE RN Service: ? Author [...] bleeding or swelling noted. Pt tolerated well. [facility] [id number] History of Present illness Narrative* Gwen Valentine, [...] note were not included. [facility] [place] [facility] Heart Failure Clinic OUTPATIENT VISIT [...] overloaded and was worried about travelinghome to [place] in a few days. Discussed with her taking lasix as it was prescribed. As her spironolactone was stopped, did advise patient restart this at 25 mg once a day for four days only. She was instructed to call office in a week to review symptoms. On 10/15, patient presented back to [facility] for gastrointestinal bleed. She had a colonoscopy [...] and entresto. The patient wished to leave [place] so she could return to [place]. Cardiology and Pulmonary agreed with discharge. 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 Lua PACEMAKER 10/2019 PART. HYSTERECTOMY W/WO RMVL OVARIES/TUBES 1973 h/o cervical cancer ovaries remain PAST SURGICAL HISTORY OF 1996 Aortic valve repair, Dr. Apodaca PAST SURGICAL HISTORY OF 2001 [address] Beltrán, [facility] PAST SURGICAL HISTORY OF 2015 clipping [...] impression and interpretation as noted. Federico Hammonds [id number] DEVICE CHECK 10/04/2024: Tachycardia: AF * Stored EGMs are consistent with or suggestive of Atrial Fibrillation * AT/AF [place]: 67.8% * Total number of events: 2774 Tachycardia: AF w/RVR * Stored EGMs listed as NSVT AND SVT are consistent with or suggestive of Atrial Fibrillation with Rapid Ventricular Response * AT/AF [place]: 67.8% * Total episodes: 9 * Longest episode: 28 SECS * Fastest episode:207 BPM Remote Device Evaluation [employer] [facility] * Device type: DUAL LEAD PACEMAKER * Presenting Rhythm: AF/ VS * Battery Status: Battery is at OK, 9.83 yrs . * Atrial Arrhythmias: There have been 12 atrial detections. Anticoagulants listed: _LAAC____ * Ventricular Arrhythmias: There have been __0 TRUE_ ventricular detections. * Lead Measurements: Capture thresholds, sensing, and lead impedances are appropriate. * Other Diagnostics: AP 64.4 MANAGER ELIGIBILITY 9.3% Tachycardia: AF * Stored EGMs are consistent with or suggestive of Atrial Fibrillation * AT/AF [place]: 8.2% (THIS PERCENT IS INACCCURATE,LIKELY CLOSER TO [...] Discussed red flags and when to call MD/AUTO WHEEL ALIGNMENT SPECIALIST or [facility] ED. Medications reconciled at end of visit: yes I spent 40 minutes in this visit, with more than 50% of the time devoted to patient counseling. Recording using Dubizzle software for draft documentation was discussed with patient/authorized customer support representative. All questions were welcome and answered. Patient/authorized customer support representative agreed toproceed. SIGNATURE: Albin Gu APRN.CNP PATIENT NAME: Berta Sanches DATE: December 19, 2024 TIME: 1100 documented in this encounterScci Hospital [facility]ima06-17-2025 NoteHNO ID: [id number] Author: ALBIN GU APRN.CNP Service: ? Author Type: Nurse Practitioner Type: Progress Notes Filed: 12/19/2024 11:45 Note Text: [facility] [place] [facility] Heart Failure [facility] OUTPATIENT VISIT [...] and was worried about traveling home to [place] in a few days. Discussed with her taking lasix as it was prescribed. As her spironolactone was stopped, did advise patient restart this at 25 mg once a day for four days only. She was instructed to call office in a week to review symptoms. On 10/15, patient presented back to [facility] for gastrointestinal bleed. She had a colonoscopy [...] and entresto. The patient wished to leave [place] so she could return to [place]. Cardiology and Pulmonary agreed with discharge. Patient [...] monitoring her sodium intake (more content not included)...[facility] [id number] Instructions* Patient Instructions* Albin Gu APRN.TWISTHAND - 12/19/2024 10:59 AM EDT 40 mg [...] or concern, you can call me at [phone]. documented in this encounterScci Hospital [facility]ima06-11-2025 Telephone encounter Note * Telephone Encounter - Alex Gonzalez - 12/13/2024 9:28 AM EDT Transitional Care Management (TCM) [facility] Monitoring Program Provider Action / FYI: N/A SUMMARY: Outreach type: INITIAL OUTREACH Discharge Network Status: In-Network Discharge Source of Patient: [facility] TCM Discharge Report Patient discharged from [facility] on December 12. Admitted for Acute on chronic diastolic CHF (congestive heart failure) (HCC). Contact made with patient: No - next outreach attempt will be on next business day. Alex Betancourt December 13, 2024 9:35 AM [facility] Miscellaneous Notes* Telephone Encounter - Alex Gonzalez - 12/13/2024 9:28 AM EDT Transitional Care Management (TCM) [facility] Monitoring [facility] Provider Action / FYI: N/A SUMMARY: Outreach type: INITIAL OUTREACH Discharge Network Status: In-Network Discharge Source of Patient: [facility] TCM Discharge Report Patient discharged from [facility] on December 12. Admitted for Acute on chronic diastolic CHF (congestive heart failure) (HCC). Contact made with patient: No - next outreach attempt will be on next business day. Alex Betancourt December 13, 2024 9:35 AM documented in this encounterScci Hospital [facility]ima06-10-2025 NoteHNO ID: [id number] Author: STACIE LONDONO RN Service: Care Management [...] Physician Primary Care Physician Name/Phone: Deysi Collazo APRN.TWISTHAND [phone] Additional Information: na Discharge order written for today, patient discharged home with no services. Family will transport. SIGNATURE: Stacie Londono RN PATIENT NAME: Berta Sanches DATE: December 12, 2024 TIME: 9:13 AMCoshocton Regional Medical CenterXnuindle24-73-0077 Telephone encounter Note* Telephone Encounter - Deysi Collazo APRN.CNP - 12/11/2024 1:06 PM EDT Noted. Deysi Collazo APRN.JASPREET [facility]-09[facility] Miscellaneous Notes* Telephone Encounter - Deysi Collazo APRN.CNP - 12/11/2024 1:06 PM EDT Noted. Deysi Collazo APRN.CNP * Telephone Encounter - Sigifredo Rivera LPN - 12/11/2024 11:15 AM EDT Pt re admitted to [facility]. Sigifredo Rivera LPN * Telephone Encounter - Marilyn Cesar - 12/11/2024 11:05 AM EDT Patient called to cancel hospital follow up due to re admission yesterday 12/10/2024 documented in this encounterScci Hospital Lima06-09-2025 NoteHNO ID: [id number] Author: MAXIMINO JENNINGS RN Service: Care Management Author Type: Registered Nurse Type: Care Mgt Initial Assessment Filed: 12/11/2024 11:51 Note Text: CARE MANAGEMENT: ASSESSMENT AND DISCHARGE PLAN SERVICE DATE: December 11, 2024 SERVICE TIME: 11:50 AM PCP: Deysi Collazo APRN.CNP Primary Contact: Extended Emergency Contact Information Primary Emergency Contact: Natanael Sanches Address: [address] [place] [id number] [place] [address] OF [facility] Mobile Relation: Spouse Admission Status: Inpatient Insurance Provider: [employer] MED[employer]ARE PPO Discharge Planning requested by: Per Department Practice Potential Transition Plans Home Advance Directives Current Advance Directive: Living Will, Health Care Power of Twisthand In Chart: No Current Living Arrangements and [...] None Discharge Planning Patient Goal(s): General wellness [place] Explained: [place] Given: No Reason Not Given: [...] assessment. Patient from home with her , I-ENVIRONMENTAL MANAGEMENT SPECIALIST, drives minimally. to transport upon DC. CM assigned will continue to follow for DC planning needs. SIGNATURE: Maximino Jennings RN PATIENT NAME: Berta Sanches DATE: December 11, 2024 TIME: 11:50 [facility]le[facility]-2614 NoteHNO ID: [id number] Author: JUAN DIEGO KNOWLES MD Service: Hospital [...] s/p SMA stenting 09/2024 in [facility] [facility], hx of AVR, CKD3. Patient presenting with [...] Diego Knowles MD DATE: 12/11/2024 TIME: 11:47 [id number] Telephone encounter Note* Telephone Encounter - Sigifredo Rivera LPN - 12/11/2024 11:15 AM EDT Pt re admitted to [facility]. Sigifredo Rivera LPN [facility]06-09-2025 Telephone encounter Note* Telephone Encounter - Marilyn Cesar - 12/11/2024 11:05 AM EDT Patient called to cancel hospital follow up due to re admission yesterday 12/10/2024 [facility]05-19-2025 History of Present illness Narrative* Carla Burdick MD - 11/20/2024 8:00 AM EDT Images from the original note were not included. [facility] SECTION OF REGIONAL CARDIOLOGY Cardiology ([facility]) [address] [facility] [id number] OUTPATIENT VISIT DATE PRIMARY CARE PHYSICIAN: Doreen Le [address] [place] [address] HISTORY OF PRESENT ILLNESS: Ms. 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 Lua PACEMAKER 10/2019 PART. HYSTERECTOMY W/WO RMVL OVARIES/TUBES 1973 h/o cervical cancer ovaries remain PAST SURGICAL HISTORY OF 1996 Aortic valve repair, Dr. Apodaca PAST SURGICAL HISTORY OF 2001 [address] Beltrán, [facility] PAST SURGICAL HISTORY OF 2015 clipping [...] palpate. CARDIOVASCULAR MEDICINE TESTING: Right Heart Catheterization [facility] 10/24/2024: Cardiac output (Qs) !4.1L/min ! + [...] !SVR !1650dyn-sec/cm5 ! + + + !SVRI !3079fgf-fze-r^2/cm5 ! + + + !PVR !544dyn-sec/cm5 ! + + + !PVRI !820npv-vsj-b^2/cm5 ! + + + !Total systemic resistance!2097dyn-sec/cm5, 4574ubf-kin-h^2/cm5! Echocardiogram [facility] 10/03/2024: 1. Left ventricle: The cavity [...] or suggestive of Atrial Fibrillation * AT/AF [place]: 67.8% * Total number of events: 2774 Tachycardia: AF w/RVR * Stored EGMs listed as NSVT AND SVT are consistent with or suggestive of Atrial Fibrillation with Rapid Ventricular Response * AT/AF [place]: 67.8% * Total episodes: 9 * Longest [...] She underwent SMA stent placement at [facility] September 2024. She has been treated for [...] TABLET Carla Burdick MD documented in this encounterS[facility] Hospital [facility]05-19-2025 NoteHNO ID: [id number] Author: CARLA BURDICK MD Service: ? Author Type: Physician Type: Progress Notes Filed: 11/20/2024 08:50 Note Text: [facility] SECTION OF REGIONAL CARDIOLOGY Cardiology ([facility]) [address] [facility] [id number] OUTPATIENT VISIT DATE PRIMARY CARE PHYSICIAN: Doreen Le [address] [place] [address] HISTORY OF PRESENT ILLNESS: Ms. 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 Lua PACEMAKER 10/2019 PART. HYSTERECTOMY W/WO RMVL OVARIES/TUBES 1974 h/o cervical cancer ovaries remain PAST SURGICAL HISTORY OF 1996 Aortic valve repair, Dr. Apodaca PAST SURGICAL HISTORY OF 2001 [address] Beltrán, [facility] PAST SURGICAL HISTORY OF 2015 clipping [...] tablet by mouth t (more content not included)...[facility]05-14-2025 Telephone encounter Note* Telephone Encounter - Mckenzie Rodriguez MA - 11/15/2024 3:39 PM EDT Scheduled. Mckenzie Rodriguez MA [facility]05-14-2025 Miscellaneous Notes* Telephone Encounter - Mckenzie Rodriguez [...] metabolic panel and BNP. documented in this encounterS[facility] Hospital [facility]05-14-2025 Telephone encounter Note * Telephone Encounter - [...] repeat a basic metabolic panel and BNP. [facility]05-05-2025 Instructions* Patient Instructions* Carla Burdick MD - 11/06/2024 3:33 PM EDT We are changing the Furosemide to Torsemide 20 mg two times per day Stop taking the Losartan documented in this encounterScci Hospital [facility]05-05-2025 History of Present illness Narrative* Carla Burdick MD - 11/06/2024 2:40 PM EDT Images from the original note were not included. [facility] SECTION OF REGIONAL CARDIOLOGY Cardiology ([facility]) [address] [facility] [id number] OUTPATIENT VISIT DATE 11/06/2024 PRIMARY CARE PHYSICIAN: Doreen Le [address] [place] [address] HISTORY OF PRESENT ILLNESS: Ms. Sanches is [...] admitted to the hospital while vacationing in [place]. She underwent SMA stent placement. This was followed by a long admission for decompensated congestive heart failure in the setting of the renal insufficiency. 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 Lua PACEMAKER 10/2019 PART. HYSTERECTOMY W/WO RMVL OVARIES/TUBES 1974 h/o cervical cancer ovaries remain PAST SURGICAL HISTORY OF 1996 Aortic valve repair, Dr. Apodaca PAST SURGICAL HISTORY OF 2001 [address] Beltrán, [facility] PAST SURGICAL HISTORY OF 2016 clipping [...] palpate. CARDIOVASCULAR MEDICINE TESTING: Right Heart Catheterization [facility] 10/24/2024: Cardiac output (Qs) !4.1L/min ! + [...] !SVR !1650dyn-sec/cm5 ! + + + !SVRI !5285pqc-owz-u^2/cm5 ! + + + !PVR !544dyn-sec/cm5 ! + + + !PVRI !032wnh-ktv-q^2/cm5 ! + + + !Total systemic resistance!2097dyn-sec/cm5, 2854yjx-tdz-z^2/cm5! Echocardiogram [facility] 10/03/2024: 1. Left ventricle: The cavity [...] or suggestive of Atrial Fibrillation * AT/AF [place]: 67.8% * Total number of events: 2774 Tachycardia: AF w/RVR * Stored EGMs listed as NSVT AND SVT are consistent with or suggestive of Atrial Fibrillation with Rapid Ventricular Response * AT/AF [place]: 67.8% * Total episodes: 9 * Longest [...] She underwent SMA stent placement at [facility] September 2024. She has been treated for [...] I65.23 Carla Burdick MD documented in this encounterScci Hospital [facility]05-05-2025 NoteHNO ID: [id number] Author: CARLA BURDICK MD Service: ? Author Type: Physician Type: Progress Notes Filed: 11/06/2024 17:01 Note Text: [facility] SECTION OF REGIONAL CARDIOLOGY Cardiology ([facility]) [address] [facility] [id number] OUTPATIENT VISIT DATE 11/06/2024 PRIMARY CARE PHYSICIAN: Doreen Le [address] [place] [address] HISTORY OF PRESENT ILLNESS: Ms. Sanches is [...] admitted to the hospital while vacationing in [place]. She underwent SMA stent placement. This was followed by a long admission for decompensated congestive heart failure in the setting of the renal insufficiency. 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 Lua PACEMAKER 10/2019 PART. HYSTERECTOMY W/WO RMVL OVARIES/TUBES 1973 h/o cervical cancer ovaries remain PAST SURGICAL HISTORY OF 1996 Aortic valve repair, Dr. Apodaca PAST SURGICAL HISTORY OF 2001 [address] Beltrán, [facility] PAST SURGICAL HISTORY OF 2015 clipping [...] Hypotension MEDICATIONS: clopidogrel (PLAVIX) (more content not included)...[facility] 11-03-2024 Telephone encounter Note* Telephone Encounter - Deysi Collazo APRN.CNP - 11/03/2024 4:29 PM EDT Looks like patient was seen today at heart failure clinic and had repeat labs. From notes, it lookslike patient continued to refuse ER. She has an appt w/ cardiology on Wednesday and is to repeat labs at that time. [facility]05-02-2025 Miscellaneous Notes* Telephone Encounter - Deysi Collazo [...] the ER. stated the kidney doctor at [facility] said her levels are not life threatening. [...] patient in to the heart center at [facility] today for the IVF. He [...] and Laboratory monitoring.Patient was not d/c'd from [facility], she left AMA. MONIQUE can cause assisted damage and if uncorrected patient could end [...] proceed to ER immediately. documented in this encounterS[facility] Hospital [facility]05-02-2025 Telephone encounter Note * Telephone Encounter - [...] with plan of care. Albin Gu APRN.CNP [facility]05-02-2025 Miscellaneous Notes* Telephone Encounter - Albin Gu [...] care. Albin Gu APRN.CNP documented in this encounterScci Hospital [facility]05-02-2025 History of Present illness Narrative* Gwen Valentine [...] note were not included. [facility] [place] [facility] Heart Failure Clinic OUTPATIENT VISIT [...] feeling fluid overloaded and [facility] [place] in a few days. Discussed with her taking lasix as it was prescribed. As her spironolactone was stopped, did advise patient restart this at 25 mg once a day for four days only. She was instructed to call office in a week to review symptoms. On 10/15, patient presented back to [facility] for gastrointestinal bleed. She had a colonoscopy [...] and entresto. The patient wished to leave [place] so she could return to [place]. Cardiology and Pulmonary agreed with discharge. Today, the patient reports feeling okay. Since she was hospitalized in [place], she has not felt that well. Feels very tired. Denies shortness of breath. Was seen by her PCP on Wednesday who suggested patient be admitted due to significant worsening in kidney function however, the patient and husbanddeclined admission as she just returned home the day before. States she was started on bumex drip and then received oral bumex while in [place] and noted a worsening in kidney function. [...] chicken, asparagus and s alad. While in [place], she was very conscious about her diet. She weighed every day. She feels after thefirst hospitalization, she gained approx 20 lbs which she did call and discuss this with this HF FACS TEACHER. Wearing lidocaine patch over site to right side of neck as she mentions having a temporary dialysisport in place during first hospitalization. This area was bothersome to her however, she does mention the discomfort is improving. Does not have a scrum product owner at this time. Can lay flat with [...] morning meds 3. SSS (sick sinus syndrome) ([facility]) - ICD9: 427.81, ICD10: I49.5 [...] (HCC) Pedro aneurysm of anterior communicating artery ([facility]) Dr. Aaron [facility] Bilateral carotid artery stenosis 11/26/2016 05/27/16 moderate 50-69% stenosis right and left Bilateral pneumonia 07/20/2015 Cancer of cervix (HCC) Cervical cancer (HCC) 1973 Chest pain 06/01/2015 negative work up with nuclar stress CHF (congestive heart failure) ([facility]) Cholesteatoma of right ear surgical removal Chronic mastoiditis of left side Chronic renal failure, stage 3b (HCC) 04/15/2022 Diabetes ([facility]) Diabetes (HCC) GERD (gastroesophageal reflux disease) H/O: 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 Lua PACEMAKER 10/2019 PART. HYSTERECTOMY W/WO RMVL OVARIES/TUBES 1974 h/o cervical cancer ovaries remain PAST SURGICAL HISTORY OF 1996 Aortic valve repair, Dr. Apodaca PAST SURGICAL HISTORY OF 2001 [address] Beltrán, [facility] PAST SURGICAL HISTORY OF 2015 clipping [...] impression and interpretation as noted. Federico Hammonds [id number] I have personally reviewed the Laboratory Testing and Echocardiogram. COUNSELING: We discussed the following non-pharmacological measures during this visit: Smoking and alcohol abstinence/cessation, if applicable Dietary and medication compliance Monitoring daily weights and blood pressures Exercise regimen When to call our office Heart Failure Education Booklet: Previously given. Discussed red flags and when to call MD/AUTO WHEEL ALIGNMENT SPECIALIST or [facility]. Medications reconciled at end of visit: yes I spent 60 minutes in this visit, with more than 50% of the time devoted to patient counseling. SIGNATURE: Albin Gu APRN.CNP PATIENT NAME: Berta Sanches DATE: November 03, 2024 TIME: 0855 documented in this encounterScci Hospital [facility]05-02-2025 NoteHNO ID: [id number] Author: GWEN VALENTINE RN Service: ? Author [...] No bleeding, no swelling noted. Pt tolerated well.[facility] [id number] NoteHNO ID: [id number] Author: ALBIN GU APRN.CNP Service: ? Author Type: Nurse Practitioner Type: Progress Notes Filed: 11/03/2024 10:28 Note Text: [facility] [place] [facility] Heart Failure Clinic OUTPATIENT VISIT [...] and was worried about traveling home to [place] in a few days. Discussed with her taking lasix as it was prescribed. As her spironolactone was stopped, did advise patient restart this at 25 mg once a day for four days only. She was instructed to call office in a week to review symptoms. On 10/15, patient presented back to [facility] for gastrointestinal bleed. She had a colonoscopy [...] and entresto. The patient wished to leave [place] so she could return to [place]. Cardiology and Pulmonary agreed with discharge. Today, the patient reports feeling okay. Since she was hospitalized in [place], she has not felt that well. Feels very tired. Denies shortness of breath. Was seen by her PCP on Wednesday who suggested patient be admitted due to significant worsening in kidney function however, the patient and declined admission as she just returned home the day before. States she was started on bumex drip and then received oral bumex while in [place] and noted a worsening in kidney function. [...] roasted chicken, asparagus and salad. While in [place], she was very conscious about her diet. She weighed every day. She feels after the first hospitalization, she gained approx 20 lbs which she did call and discuss this with this HF FACS TEACHER. Wearing lidocaine patch over site to right side of neck as she mentions having a temporary dialysis port in place during first hospitalization. This area was bothersome to her however, she does mention the discomfort is improving. Does not have a scrum product owner at this time. Can lay flat with [...] and kidney function sug (more content not included)...[facility] [id number] Instructions* Patient Instructions* Albin Gu APRN.CNP - [...] or concern, you can call me at [phone]. documented in this encounterS[facility] Hospital [facility]05-01-2025 Telephone encounter Note * Telephone Encounter - Quin Lama MA - 11/02/2024 9:00 AM EDT Spoke with patient's , Natanael. Patient was in background listening. Relayed message below in detail. Reiterated need for ER for IVF and lab monitoring. Both patient and spouse again declined going to the ER. stated the kidney doctor at [facility] said her levels are not life threatening. [...] patient in to the heart center at [facility] today for the IVF. He [...] be ordered without appointment. Quin Lama MA [facility]04-30-2025 Telephone encounter Note* Telephone Encounter - Irma Hwang RN - 11/01/2024 1:52 PM EDT Patient scheduled for 11/06/24. Irma Hwang RN [facility]04-30-2025 Miscellaneous Notes* Telephone Encounter - Irma Hwang RN - 11/01/2024 1:52 PM EDT Patient scheduled for 11/06/24. Irma Hwang RN documented in this encounterScci Hospital [facility]ima04-29-2025 Telephone encounter Note * Telephone Encounter - Shaye Domingo APRN.JASPREET - 10/31/2024 4:46 PM EDT Creatinine is not improved and likely will not improve at home. Need IVF and Laboratory monitoring.Patient was not d/c'd from [facility], she left AMA. MONIQUE can cause equipment operator intermodal yard damage and if uncorrected patient could end [...] worse and not better if not corrected. [facility]04-29-2025 Telephone encounter Note* Telephone Encounter - Radha [...] Please review and advise, Radha Pyle RN [facility]04-29-2025 Telephone encounter Note* Telephone Encounter - Shaye Domingo APRN.CNP - 10/31/2024 1:35 PM EDT Left message for patient to return call. Patient's kidney function has gotten significantly worse and she needs to proceed to ER immediately. [facility]04-29-2025 NoteHNO ID: [id number] Author: SHAYE DOMINGO APRN.CNP Service: ? Author Type: Nurse Practitioner Type: Progress Notes Filed: 10/31/2024 12:52 Note Text: Chief Complaint Patient presents with: Hospital F/U [facility] Berta Sanches is a 79 year old female who presents here today for Above Complaints.. Acute Mesenteric Ischemia: - Initially admitted to [facility] on 10/02/2024. - Underwent femoral ultrasound-guided angiogram with angioplasty and stenting of the SMA. - Required CRRT for MONIQUE post-op. - Developed AFib with RVR post-op. - Discharged after 23-day hospitalization. Acute on Chronic Heart Failure: - Given IV Lasix during initial admission. 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 Lua PACEMAKER 10/2019 PART. HYSTERECTOMY W/WO RMVL OVARIES/TUBES 1974 h/o cervical cancer ovaries remain PAST SURGICAL HISTORY OF 1996 Aortic valve repair, Dr. Apodaca PAST SURGICAL HISTORY OF 2001 [address] Beltrán, [facility] PAST SURGICAL HISTORY OF 2016 clipping [...] 24 hr tablet Take (more content not included)...[facility]04-29-2025 History of Present illness Narrative* Shaye Domingo APRN.TWISTHAND - 10/31/2024 11:11 AM EDT Chief Complaint Patient presents with: Hospital F/U [facility] Berta Sanches is a 79 year old female who presents here today for Above Complaints.. Acute Mesenteric Ischemia: - Initially admitted to [facility] on 10/02/2024. - Underwent femoral ultrasound-guided angiogram with angioplasty and stenting of the SMA. - Required CRRT for MONIQUE post-op. - Developed AFib with RVR post-op. - Discharged after 23-day hospitalization. Acute on Chronic Heart Failure: - Given IV Lasix during initial admission. 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 Lua PACEMAKER 10/2019 PART. HYSTERECTOMY W/WO RMVL OVARIES/TUBES 1973 h/o cervical cancer ovaries remain PAST SURGICAL HISTORY OF 1996 Aortic valve repair, Dr. Apodaca PAST SURGICAL HISTORY OF 2001 [address] Beltrán, [facility] PAST SURGICAL HISTORY OF 2015 clipping [...] CONSULT TO PHYSICAL THERAPY - CONSULT TO BRANCH ACCOUNT EXECUTIVE 6. Acute on chronic diastolic congestive heart failure (HCC) - ICD9: 428.33, 428.0, ICD10: I50.33 - HFpEF 50+ - Compensated - Continue current medications - Encouraged sodium restriction - Encouraged daily weights - Call if 3 lbs gained in 1 days - Will contact Dr. Burdick's office for sooner follow up to discuss recommendations from cardiology/nephrology from [facility]. 7. Hospital discharge follow-up - ICD9: V67.59, ICD10: Z09 -23 days inpatient at [facility]. Shaye Domingo APRN.CNP documented in this encounterScci Hospital [facility]ima04-10-2025 Telephone encounter Note * Telephone Encounter - Albin Gu APRN.CNP - 10/12/2024 12:29 PM EDT Patient called to schedule appt in HF Clinic. Patient also mentions she is currently in [place]. She was admitted to the hospital for [...] answered at this time. Albin Gu APRN.CNP [facility]04-10-2025 Miscellaneous Notes* Telephone Encounter - Albin Gu APRN.CNP - 10/12/2024 12:29 PM EDT Patient called to schedule appt in HF Clinic. Patient also mentions she is currently in [place]. She was admitted to the hospital for [...] time. Albin Gu APRN.CNP documented in this encounterScci Hospital [facility]ima01-27-2025 Telephone encounter Note * Telephone Encounter - Melida Koo APRN.CNP - 07/31/2024 11:54 AM EST Pt called to request refill for KDur as she has run out of prescription. She states that she is currently in [place] and will be in [place] until October. [facility] called in [place], [place]. Spoke with Pharmacist on duty. Rx for KDur 10 meq PO daily given verbally #90 with no refills. Melida Koo APRN.CNP [facility] Work Phone: [phone] Miscellaneous Notes* Telephone Encounter - Melida Koo APRN.CNP - 07/31/2024 11:54 AM EST Pt called to request refill for KDur as she has run out of prescription. She states that she is currently in [place] and will be in [place] until October. [facility] called in [place], [place]. Spoke with Pharmacist on duty. Rx for KDur 10 meq PO daily given verbally #90 with no refills. Melida Koo APRN.CNP documented in this encounterScci Hospital [facility]ima01-03-2025 NoteHNO ID: [id number] Author: SIGIFREDO RIVERA LPN Service: ? Author [...] membrane assessed by LIP pre and post procedureOhio Valley Surgical Hospital01-03-2025 NoteHNO ID: [id number] Author: DEYSI COLLAZO APRN.TWISTHAND Service: ? Author Type: Nurse Practitioner Type: Progress Notes Filed: 07/07/2024 12:41 Note Text: This is a 78 year old female who presents today with: Patient presents with: Establish Care HISTORY OF PRESENT ILLNESS: Berta Sanches is a 78 year old female. Patient presents with: Establish Care Pt presents today to [facility]. HTN: Patient is compliant with meds Yes. 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 Lua PACEMAKER 10/2019 PART. HYSTERECTOMY W/WO RMVL OVARIES/TUBES 1973 h/o cervical cancer ovaries remain PAST SURGICAL HISTORY OF 1996 Aortic valve repair, Dr. Apodaca PAST SURGICAL HISTORY OF 2001 [address] Beltrán, [facility] PAST SURGICAL HISTORY OF 2016 clipping [...] Type 2 DM - (more content not included)...[facility]10-04-2024 Instructions* Patient Instructions* Albin Gu APRN.TWISTHAND - 04/07/2024 9:18 AM EDT Continue current [...] or concern, you can call me at [phone]. documented in this encounterScci Hospital [facility]ima10-04-2024 History of Present illness Narrative* Albin Gu APRN.JASPREET - 04/07/2024 9:00 AM EDT Images from the original note were not included. [facility] [place] [facility] Heart Failure Clinic OUTPATIENT VISIT [...] boat and take it out on [place] to fish. 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 Lua PACEMAKER 10/2019 PART. HYSTERECTOMY W/WO RMVL OVARIES/TUBES 1974 h/o cervical cancer ovaries remain PAST SURGICAL HISTORY OF 1996 Aortic valve repair, Dr. Apodaca PAST SURGICAL HISTORY OF 2001 [address] Beltrán, [facility] PAST SURGICAL HISTORY OF 2016 clipping [...] * Heart Rate Histograms reviewed AP 45%, MANAGER ELIGIBILITY 10.4% Title: Tachycardia: AF * Stored EGMs are consistent with or suggestive of Atrial Fibrillation * AT/AF [place]: 38.7% * Total number of events: 4,598 [...] Discussed red flags and when to call MD/AUTO WHEEL ALIGNMENT SPECIALIST [facility] Medications reconciled at end of visit: yes I spent 30 minutes in this visit, with more than 50% of the time devoted to patient counseling. SIGNATURE: Albin Gu APRN.CNP PATIENT NAME: Berta Sanches DATE: April 07, 2024 TIME: 904 documented in this encounterScci Hospital [facility]10-04-2024 NoteHNO ID: [id number] Author: ALBIN GU APRN.CNP Service: ? Author Type: Nurse Practitioner Type: Progress Notes Filed: 04/07/2024 09:57 Note Text: [facility] [place] [facility] Heart Failure Clinic OUTPATIENT VISIT [...] a boat and take it out on [place] to [place]. IMPRESSION: NYHA Functional Class: II Stage: C [...] left Bilateral pneumonia 07/20/ (more content not included)...[facility] 02-21-2024 Telephone encounter Note* Telephone [...] of plan of care. Melida Koo APRN.CNP [facility] Work Phone: 1(346) 125-740608-19-2024 Miscellaneous Notes* Telephone Encounter - Melida Koo [...] care. Melida Koo APRN.CNP documented in this encounterScci Hospital [facility]ima08-05-2024 Telephone encounter Note * Telephone Encounter - [...] to Maribell as well. Ying Fuentes LPN [facility]08-05-2024 Miscellaneous Notes* Telephone Encounter - Ying Fuentes [...] BNP. Maribell King APRN.CNP documented in this encounterScci Hospital [facility]ima08-05-2024 Telephone encounter Note * Telephone Encounter - Maribell King APRN.CNP - 02/07/2024 12:47 PM EDT Patient should double Lasix to 40 mg BID for 3 days, then recheck BMP that has been ordered per PCP. Please ask patient to monitor daily weights. Maribell King APRN.CNP [facility]08-05-2024 Telephone encounter Note* Telephone Encounter - Melida [...] left for call back. Melida Koo APRN.CNP [facility] Work Phone: 1(494) 217-791108-05-2024 Miscellaneous Notes* Telephone Encounter - Melida Koo [...] back. Melida Koo APRN.JASPREET documented in this encounterScci Hospital [facility]ima08-02-2024 Telephone encounter Note * Telephone Encounter - Ying Fuentes LPN - 02/04/2024 2:13 PM EDT I spoke to CotyTrudy and informed them of Maribell's response to lab results and recommendations. Patient voiced understanding. Patient states BNP is elevated from 2 months ago. Patient asking if she should make any changes. Patient c/o weight gain and SOB with activity. Ying Fuentes LPN [facility]08-02-2024 Telephone encounter Note* Telephone Encounter - Ying Fuentes LPN - 02/04/2024 2:12 PM EDT ----- Message from Maribell King APRN.CNP sent at 02/04/2024 2:02 PM EDT ----- Please call the patient and report lab results revealed stable kidney function, normal potassium level, normal liver function, cholesterol is under good control, and elevated BNP. Maribell King APRN.CNP [facility]08-02-2024 Telephone encounter Note* Telephone Encounter - Albin [...] answered at this time. Albin Gu APRN.CNP [facility]08-02-2024 Miscellaneous Notes* Telephone Encounter - Albin Gu [...] time. Albin Gu APRN.CNP documented in this encounterScci Hospital [facility]ima07-15-2024 Instructions* Patient Instructions* Carla Burdick MD - 01/17/2024 10:08 AM EDT We will repeat fasting blood work documented in this encounterScci Hospital Lima07-15-2024 History of Present illness Narrative* Carla Burdick MD - 01/17/2024 9:20 AM EDT Images from the original note were not included. [facility] SECTION OF REGIONAL CARDIOLOGY Cardiology ([facility]) [address] [facility] [id number] OUTPATIENT VISIT DATE 01/17/2024 PRIMARY CARE PHYSICIAN: Doreen Le [address] [place] [address] HISTORY OF PRESENT ILLNESS: Ms. 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 Lua PACEMAKER 10/2019 PART. HYSTERECTOMY W/WO RMVL OVARIES/TUBES 1974 h/o cervical cancer ovaries remain PAST SURGICAL HISTORY OF 1996 Aortic valve repair, Dr. Apodaca PAST SURGICAL HISTORY OF 2001 [address] Beltrán, [facility] PAST SURGICAL HISTORY OF 2016 clipping [...] I73.9 Carla Burdick MD documented in this encounterScci Hospital Lima07-15-2024 NoteHNO ID: [id number] Author: CARLA BURDICK MD Service: ? Author Type: Physician Type: Progress Notes Filed: 01/17/2024 10:36 Note Text: [facility] SECTION OF REGIONAL CARDIOLOGY Cardiology ([facility]) [address] [facility] [id number] OUTPATIENT VISIT DATE 01/17/2024 PRIMARY CARE PHYSICIAN: Doreen Le [address] [place] [address] HISTORY OF PRESENT ILLNESS: Ms. 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 Lua PACEMAKER 10/2019 PART. HYSTERECTOMY W/WO RMVL OVARIES/TUBES 1973 h/o cervical cancer ovaries remain PAST SURGICAL HISTORY OF 1996 Aortic valve repair, Dr. Apodaca PAST SURGICAL HISTORY OF 2001 [address] Beltrán, [facility] PAST SURGICAL HISTORY OF 2015 clipping [...] mouth once daily. pota (more content not included)...[facility]06-04-2024 Instructions* Patient Instructions* Deysi Collazo APRN.CNP - 12/07/2023 12:13 PM EDT Continue the same medications. If no better or worsening, start the antibiotic. Start mucinex or coricidin. Let us know if no improvement/worsening. 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 Lua PACEMAKER 10/2019 PART. HYSTERECTOMY W/WO RMVL OVARIES/TUBES 1974 h/o cervical cancer ovaries remain PAST SURGICAL HISTORY OF 1996 Aortic valve repair, Dr. Apodaca PAST SURGICAL HISTORY OF 2001 [address] Beltrán, [facility] PAST SURGICAL HISTORY OF 2015 clipping [...] as needed for worsening/no improvement. Deysi Collazo APRN.TWISTHAND documented in this encounterScci Hospital [facility]ima05-24-2024 History of Present illness Narrative* Valentine Meneses [...] Signature: Valentine Meneses RN documented in this encounterScci Hospital [facility]ima05-23-2024 Instructions* Patient Instructions* Albin Gu APRN.JASPREET - [...] question or concern, you cancall me at [phone]. documented in this encounterScci Hospital [facility]ima05-23-2024 History of Present illness Narrative* Albin Gu APRN.JASPREET - 11/25/2023 10:00 AM EDT Images from the original note were not included. [facility] [place] [facility] Heart Failure Clinic OUTPATIENT VISIT [...] timeline ofover 5 years ago. Was in [place] over the winter for 3 months. Noticed leg swelling while down in [place]. 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 Lua PACEMAKER 10/2019 PART. HYSTERECTOMY W/WO RMVL OVARIES/TUBES 1974 h/o cervical cancer ovaries remain PAST SURGICAL HISTORY OF 1996 Aortic valve repair, Dr. Apodaca PAST SURGICAL HISTORY OF 2001 [address] Beltrán, [facility] PAST SURGICAL HISTORY OF 2015 clipping [...] 25, 2023 TIME: 1000 documented in this encounterScci Hospital [facility]ima05-21-2024 History of Present illness Narrative* Chula Morales RN - 11/23/2023 2:39 PM EDT Lab from 11/19/[address] Mujica. Greatly improved with oral iron. Pt notified. No need for OVin Hem/Onc and to follow up with PCP. Pt verbalized understanding. Chula Morales RN documented in this encounterScci Hospital [facility]ima05-20-2024 Instructions* Patient Instructions* Deysi Collazo APRN.CNP - 11/22/2023 9:53 AM EDT Continue the same medication. Repeat lab on Wednesday after you see Dr. Rodriguez. Moist heat/ice to the back. Massage to the area. Let us know if any problems/concerns. documented in this encounterScci Hospital [facility]ima05-20-2024 History of Present illness Narrative* Deysi Collazo APRN.JASPREET - 11/22/2023 9:08 AM EDT This is a 78 year old female who presents today with: Patient presents with: Hospital Follow Up: [facility] follow up dc'd 11/12/23 dx: CHF HISTORY OF PRESENT ILLNESS: Berta Sanches is a 78 year old female. Patient presents with: Hospital Follow Up: [facility] follow up dc'd 11/12/23 dx: CHF Pt presents today for hospital follow-up. Discharged on 11/11 from [facility] w/ dx of CHF. 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 Lua PACEMAKER 10/2019 PART. HYSTERECTOMY W/WO RMVL OVARIES/TUBES 1974 h/o cervical cancer ovaries remain PAST SURGICAL HISTORY OF 1996 Aortic valve repair, Dr. Apodaca PAST SURGICAL HISTORY OF 2001 [address] Beltrán, [facility] PAST SURGICAL HISTORY OF 2016 clipping [...] improvement. Deysi Collazo APRN.JASPREET documented in this encounterScci Hospital [facility]ima05-17-2024 Telephone encounter Note * Telephone Encounter - Albin Gu APRN.CNP - 11/19/2023 8:37 AM EDT Patient called office for instructions on diuretics as her weight is up 5 lbs. She states she was instructed to call the office with questions. This FACS TEACHER has not seen this patient in clinic but is scheduled to see her in the following week. The patient states she has not been able to reach her patient support representative. She has been taking additional 20 mg [...] Patient agrees and understands. Albin Gu APRN.CNP [facility] Work Phone: 1(829) 464-941305-17-2024 Miscellaneous Notes* Telephone Encounter - Albin Gu APRN.CNP - 11/19/2023 8:37 AM EDT Patient called office for instructions on diuretics as her weight is up 5 lbs. She states she was instructed to call the office with questions. This FACS TEACHER has not seen this patient in clinic but is scheduled to see her in the following week. The patient states she has not been able to reach her patient support representative. She has been taking additional 20 mg [...] understands. Albin Gu APRN.CNP documented in this encounterScci Hospital [facility]ima05-15-2024 Telephone encounter Note * Telephone Encounter - [...] No results found for this basename: BNP [facility]05-15-2024 Miscellaneous Notes* Telephone Encounter - Gwen Valentine [...] for this basename: BNP documented in this encounterScci Hospital [facility]ima05-14-2024 Telephone encounter Note * Telephone Encounter - Mona Noonan - 11/16/2023 8:53 AM EDT Called patient and scheduled as Directed Mona Noonan [facility]05-14-2024 Miscellaneous Notes* Telephone Encounter - Mona Noonan [...] HEMATOLOGY Edmund Alex PA-C documented in this encounterScci Hospital Lima05-14-2024 History of Present illness Narrative* Geri Montes RN - 11/16/2023 8:15 AM EDT ACM CECY RN Patient identified by name and date of . Reason for review or outreach: Chart Review Cecy Priority Emergency Department Utilization ED DIAGNOSES/REASON(S) FOR ED USE: OTHER FINDINGS/SUMMARY:E.D. visit on 11-09-23 transitioned to [facility] Admit Patient Attributed To: PEDROE Payer: Pradeep CORDOBA Action Taken: No action needed Contact made with patient: No, Chart review only. Signature: Geri Montes RN documented in this encounterScci Hospital [facility]ima05-13-2024 Telephone encounter Note * Telephone Encounter - Nara Malone RN - 11/15/2023 10:32 AM EDT Transitional Care Management (TCM) [facility] Monitoring Program Provider Action / FYI: na SUMMARY: Outreach type: INITIAL OUTREACH Discharge Network Status: In-Network Discharge Source of Patient: [facility] TCM Discharge Report Patient discharged from [facility] on 11.09.23. Admitted for Acute on chronic left systolic heart failure . Contact made with patient: Yes, for Initial Outreach Hi my name is Nara Malone RN and I am calling from the [facility] on behalf of your PrimaryCare Provider, Doreen [...] Appointment Center phone number to speak witha ultrasound technologist who can assist you with that appointment. [...] Malone RN November 15, 2023 10:35 AM [facility]05-13-2024 Miscellaneous Notes* Telephone Encounter - Nara Malone RN - 11/15/2023 10:32 AM EDT Transitional Care Management (TCM) [facility] Monitoring Program Provider Action / FYI: na SUMMARY: Outreach type: INITIAL OUTREACH Discharge Network Status: In-Network Discharge Source of Patient: [facility] TCM Discharge Report Patient discharged from [facility] on 11.09.23. Admitted for Acute on chronic left systolic heart failure . Contact made with patient: Yes, for Initial Outreach Hi my name is Nara Malone RN and I am calling from the [facility] on behalf of your PrimaryCare Provider, Doreen [...] Appointment Center phone number to speak witha ultrasound technologist who can assist you with that appointment. [...] 15, 2023 10:35 AM documented in this encounterScci Hospital [facility]ima05-13-2024 Telephone encounter Note * Telephone Encounter - Ralph Mujica DO - 11/15/2023 9:31 AM EDT Hemoglobin okay. Not urgent. Next new appointment time with either me or Dr. Rodriguez. [facility]05-13-2024 Telephone encounter Note* Telephone Encounter - Rachele Bee LPN - 11/15/2023 9:26 AM EDT Dx: 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 (ICD-10-CM)]; Iron malabsorption [K90.9 (ICD-10-CM)] [facility]-13-[facility]24 Telephone encounter Note* Telephone Encounter - Doreen Le PA-C - 11/15/2023 8:31 AM EDT Hospitalist is recommending outpatient iron transfusion. Please schedule. Telephone on 10/31/23 CONSULT TO HEMATOLOGY Edmund Alex PA-C [facility]05-10-2024 Telephone encounter Note* Telephone Encounter - Vandana Baird PSS - 11/12/2023 3:45 PM EDT Medical Care at home referral was received for Heart Failure services. Unfortunately the referral is declined at this time due to geographic location. Thank you for the referral. KAITLYNN Tuttle [facility]05-10-2024 Miscellaneous Notes* Telephone Encounter - Vandana Baird [...] interface Date Referral Received: 11/12/2023 Referral Source: [facility] TC Program: HF Consult UD Consult scheduled with: NA Date of : 1945 Age: [age] year old PCP: Doreen Le PA-C Visit address from [facility]: [address] [place] [address] Name of Physician who gave the order: Dr. Rita Rey Other services ordered: None Primary Insurance Company: Payor: [employer] MEDICARE / Plan: T MEDICARE PPO / Product Type: PPO / Primary Insurance ID Number: [id number] documented in this encounterScci Hospital [facility]ima05-10-2024 Telephone encounter Note * Telephone Encounter - Vandana Baird PSS - 11/12/2023 3:44 PM EDT Transitional Care Program - Intake Template - for interface Date Referral Received: 11/12/2023 Referral Source: [facility] TC Program: HF Consult UD Consult scheduled with: NA Date of : 1945 Age: [age] year old PCP: Doreen Le PA-C Visit address from [facility]: [address] [place] [address] Name of Physician who gave the order: Dr. Rita Rey Other services ordered: None Primary Insurance Company: Payor: [email or web address] MEDICARE / Plan: [employer] MEDICARE PPO / Product Type: PPO / Primary Insurance ID Number: [id number] [facility]05-10-2024 Evaluation note* Diagnosis Stage 3 chronic kidney disease, unspecified whether stage 3a or 3b CKD (HCC)- Primary documented in this encounter [facility]05-06-2024 History of Present illness Narrative* Bere Boykin APRN.TWISTHAND - 11/08/2023 4:30 PM EDT Images from the original note were not included. 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 Lua PACEMAKER 10/2019 PART. HYSTERECTOMY W/WO RMVL OVARIES/TUBES 1973 h/o cervical cancer ovaries remain PAST SURGICAL HISTORY OF 1996 Aortic valve repair, Dr. Apodaca PAST SURGICAL HISTORY OF 2001 [address] Beltrán, [facility] PAST SURGICAL HISTORY OF 2015 clipping [...] - May be candidate for DCCV at [facility] once euvolemic 3. Acute on chronic HFmrEF [...] hemodynamic stability, he spouse drove her to [facility] ER. I called report to Dr. Tuttle in theER. CONTACT INFORMATION: Bere Boykin APRN.[facility] Cardiology [address] [facility] [address] Dept: [phone] I have reviewed the patient's medications and allergies, past medical, surgical, social and family history, updating these as appropriate. See Histories section of the [facility] for a display of this information. 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 Lua PACEMAKER 10/2019 PART. HYSTERECTOMY W/WO RMVL OVARIES/TUBES 1974 h/o cervical cancer ovaries remain PAST SURGICAL HISTORY OF 1996 Aortic valve repair, Dr. Apodaca PAST SURGICAL HISTORY OF 2001 [address] Beltrán, [facility] PAST SURGICAL HISTORY OF 2015 clipping [...] Heart Failure) (Hcc) Sss (Sick Sinus Syndrome) ([facility]) Duodenal Ulcer Type 2 Diabetes Mellitus With Diabetic Peripheral Angiopathy Without Gangrene, Without Long-Term Current Use of Insulin ([facility]) Longstanding Persistent Atrial Fibrillation ([facility]) S/P Placement of Cardiac Pacemaker Ckd (Chronic Kidney Disease) Platelet Inhibition Due to Plavix Diverticulosis Lung Nodule, Solitary Red Blood Cell Antibody Positive Iron Deficiency Anemia Secondary to Inadequate Dietary Iron Intake Iron Malabsorption Chronic Renal Failure, Stage 3b ([facility]) Spondylolisthesis At L4-L5 Level Occlusion of Superior Mesenteric Artery ([facility]) Current Outpatient Medications Medication Sig Dispense [...] systolic and diastolic CHF (congestive heart failure) ([facility]) - ICD9: 428.42, 428.0, ICD10: I50.42 5. Dilated cardiomyopathy (HCC) - ICD9: 425.4, ICD10: I42.0 6. Longstanding persistent atrial fibrillation ([facility]) - ICD9: 427.31, ICD10: I48.11 7. SSS (sick sinus syndrome) ([facility]) - ICD9: 427.81, ICD10: I49.5 [...] answered. Doreen Le PA-C documented in this encounterScci Hospital [facility]ima05-01-2024 Telephone encounter Note * Telephone Encounter - Doreen Le PA-C - 11/03/2023 10:36 AM EDT She needs to see person scheduled next week. She may need additional appointment with the pulmonology specialist in addition but haven't heard from Dr. Joan garcia. Thanks, Edmund Le PA-C [facility]05-01-2024 Miscellaneous Notes* Telephone Encounter - Doreen Le PA-C - 11/03/2023 10:36 AM EDT She needs to see person scheduled next week. She may need additional appointment with the pulmonology specialist in addition but haven't heard from Dr. Joan garcia. Thanks, Edmund Le PA-C * Telephone Encounter - Uma Parson MA - 11/02/2023 10:59 AM EDT After review pt is currently scheduled with a [facility] Deckhand in [place] on 11/08/23. This was setup on10/25/23. Her [...] Thanks, Edmund Le PA-C documented in this encounterScci Hospital [facility]ima04-30-2024 Telephone encounter Note * Telephone Encounter - Sandra Thacker LPN - 11/02/2023 5:13 PM EDT Patient notified. Verbalized understanding. Is scheduled for for follow up. [facility]04-30-2024 Miscellaneous Notes* Telephone Encounter - Sandra Thacker LPN - 11/02/2023 5:13 PM EDT Patient notified. Verbalized understanding. Is scheduled for for follow up. * Telephone Encounter - Doreen Le PA-C - 11/02/2023 5:04 PM EDT Please advise from ChatID message: Hi Cassidy You labs show you [...] PANEL Edmund Alex PA-C documented in this encounterScci Hospital [facility]ima04-30-2024 Telephone encounter Note * Telephone Encounter - Doreen Le PA-C - 11/02/2023 5:04 PM EDT Please advise from ChatID message: Hi Cassidy You labs show you [...] BASIC METABOLIC PANEL Thanks, Edmund Le PA-C [facility]04-30-2024 Telephone encounter Note* Telephone Encounter - Uma Parson MA - 11/02/2023 10:59 AM EDT After review pt is currently scheduled with a [facility] Deckhand in [place] on 11/08/23. This was setup on10/25/23. Her Cardiology appt with Clara is in January. Is she still following with him or seeing someone new? Uma Parson MA [facility]04-30-2024 Telephone encounter Note* Telephone Encounter - Doreen Le PA-C - 11/02/2023 10:54 AM EDT Please see if we can expedite cardiology visit to [facility] r/t SOB, weight gain, lower extremity swelling and recent abnormal echo finding. Patient is willing for invasive procedures if necessary. Thanks, Edmund Le PA-C [facility]04-16-2024 History of Present illness Narrative* Lars Silva DO - 10/19/2023 4:00 PM EDT Reviewed DVT study with Cassidy. No evidence of DVT. Recommend follow up as scheduled with PCP and cardiology. documented in this encounterScci Hospital [facility]ima04-15-2024 History of Present illness Narrative* Marisol Cook [...] PATIENT PRESENTS WITH AN IMPLANTABLE OR ATTACHED ROLLER STAINER: No RADIOLOGY DEPARTMENT: General X-ray: Exam(s) Completed: Chest X-Ray PERIPHERAL IV DATA: Not applicable SIGNED BY: RT Mario(R) October 18, 2023 2:28 PM documented in this encounterScci Hospital [facility]ima04-15-2024 Instructions* Patient Instructions* Doreen Le PA-C - [...] lab in 2 weeks. documented in this encounter[address]15-2024 History of Present illness Narrative* Doreen Le PA-C - 10/18/2023 1:00 PM EDT 78 year old female with c/o here for Pedro Aneurysm Neurosurgeon Dr. Dianne Rogers, Susan tMz CNP 12/10/2022 MRA brain W/WO: Satisfactory appearance [...] aneurysm ([place] 0) Sss (sick sinus syndrome) ([facility]) Paroxysmal atrial fibrillation ([facility]) S/p placement of cardiac pacemaker (primary encounter diagnosis) Chronic combined systolic and diastolic chf (congestive heart failure) ([facility]) Dilated cardiomyopathy ([facility]) Ascending aorta dilatation [facility]) H/o rheumatic heart disease History of prosthetic [...] Lymph 1.00 - 4.00 k/uL 2.82 2.73 Addison% % 13.0 10.2 Abs Addison <0.87 k/uL 1.10 (H) 0.79 Eosin% % [...] recent CT scans which were done in [facility]. 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 Lua PACEMAKER 10/2019 PART. HYSTERECTOMY W/WO RMVL OVARIES/TUBES 1974 h/o cervical cancer ovaries remain PAST SURGICAL HISTORY OF 1996 Aortic valve repair, Dr. Apodaca PAST SURGICAL HISTORY OF 2001 [address] Beltrán, [facility] PAST SURGICAL HISTORY OF 2016 clipping [...] Colon Skin Cancer Pad (Peripheral Artery Disease) ([facility]) Pedro Aneurysm of Anterior Communicating Artery [...] (primary diagnosis) 2. SSS (sick sinus syndrome) ([facility]) - ICD9: 427.81, ICD10: I49.5 3. Paroxysmal atrial fibrillation ([facility]) - ICD9: 427.31, ICD10: I48.0 4. S/P placement of cardiac pacemaker - ICD9: V45.01, ICD10: Z95.0 5. Chronic combined systolic and diastolic CHF (congestive heart failure) ([facility]) - ICD9: 428.42, 428.0, ICD10: I50.426. Dilated cardiomyopathy ([facility]) - ICD9: 425.4, ICD10: I42.0 7. Ascending aorta dilatation ([facility]) - ICD9: 447.71, ICD10: I77.810 [...] medication Doreen Le PA-C documented in this encounterScci [facility]04-12-2024 Miscellaneous Notes* Telephone Encounter - Mckayla Albert [...] appointment in January 2024. Patient has called [facility] that they told her they are scheduling into April but if seen there she cannot be seen back in [place] location which is her preference. Patient is willing to travel to [facility] if she needs to. Please review and advise. Mckayla Albert LPN documented in this encounterScci Hospital [facility]ima04-11-2024 History of Present illness Narrative* Lars Silva DO - 10/14/2023 2:57 PM EDT Images from the original note were not included. Heart , Vascular and Thoracic [place] DEPARTMENT OF VASCULAR SURGERY OUTPATIENT VISIT DATE October 14, 2023 OUTPATIENT VISIT TYPE ESTABLISHED SERVICE DATE: 10/14/2023 SERVICE TIME: 2:58 PM PRIMARY CARE PHYSICIAN: Doreen Le PA-C HISTORY OF PRESENT ILLNESS: Ms. Sanches is a 78 year old female who presents today for a vascular surgery follow-up visit has noticed increased bilateral lower extremity edema especially in thighs. She recently returned home from [place]. She had duplex in [place] which was negative for DVT. 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 Lua PACEMAKER 10/2019 PART. HYSTERECTOMY W/WO RMVL OVARIES/TUBES 1974 h/o cervical cancer ovaries remain PAST SURGICAL HISTORY OF 1996 Aortic valve repair, Dr. Apodaca PAST SURGICAL HISTORY OF 2001 [address] Beltrán, [facility] PAST SURGICAL HISTORY OF 2015 clipping [...] 2023 TIME: 2:58 PM documented in this encounterScci Hospital [facility]01-01-2024 History of Present illness Narrative* Bijan Cole [...] interactions). Bijan Cole MD documented in this encounterScci Hospital [facility]ima12-04-2023 Miscellaneous Notes* Telephone Encounter - Sheree Savaeg Ma - 06/07/2023 4:55 PM EST Patient stopped by office and picked up shoe. Small Squared toe post op shoe Sheree Savage Ma * Telephone Encounter - Sheree Savage Ma - 06/07/2023 1:49 PM EST Called pt and she will stop in office this afternoon to roller picker post op shoe. Shereedieter Savage Ma * Telephone Encounter - Parsonjyoti oCrdoba Uma - 06/07/2023 9:43 AM EST See response from pt. Uma Parson Ma documented in this encounterScci Hospital [facility]ima11-28-2023 History of Present illness Narrative* Marisol Cook [...] 01, 2023 2:31 PM documented in this encounterScci Hospital [facility]ima10-27-2023 History of Present illness Narrative* Mckayla Reed, [...] 30, 2023 1:48 PM documented in this encounterScci Hospital [facility]10-09-2023 History of Present illness Narrative* Marisol Cook [...] 12, 2023 10:32 AM documented in this encounterScci Hospital [facility]ima09-11-2023 Miscellaneous Notes* Telephone Encounter - Margoth Bolaños [...] and advise. Agueda Schulte documented in this encounterScci Hospital [facility]ima07-27-2023 Miscellaneous Notes* Telephone Encounter - Bushra Strauss - 01/28/2023 10:43 AM EDT Patient has been contacted and scheduled with Dr. Silva * Telephone Encounter - Sheree Savage Ma - 01/28/2023 9:55 AM EDT Pt viewed ChatID message. Please help pt set up consult. * Telephone Encounter - Doreen Le PA-C - 01/28/2023 6:33 AM EDT Please schedule: Telephone on 01/28/23 CONSULT TO VASCULAR SURGERY Pvd (peripheral vascular disease) with claudication (hcc) (primary encounter diagnosis) See Press-sensehart regarding PVR resuts Edmund Alex PA-C documented in this encounterScci Hospital Lima07-07-2023 Miscellaneous Notes* Telephone Encounter - Berta Keith - 01/08/2023 1:51 PM EDT Patient stated she will talk to Edmund at her April' appoitment.Berta Garcia Pss * Telephone Encounter - Sheree Savage Ma - 01/08/2023 9:34 AM EDT Images from the original note were not included. Doreen Le PA-C [facility] David Aldana Please assist patient to schedule outstanding CT chest WO to follow lung nodules if she is amenable Edmund Alex PA-C documented in this encounterScci Hospital [facility]ima07-06-2023 Instructions* Patient Instructions* Doreen Le PA-C - [...] due to heart conditions documented in this encounterScci Hospital [facility]ima07-06-2023 History of Present illness Narrative* Doreen Le PA-C - 01/07/2023 8:40 AM EDT 77 year old female with c/o here for routine follow up. Worst problem currently are legs. Has to get up and walk around. Drinks tonic water with quinine. Pain is excruciating. Severe pain. Not every night. Pedro Aneurysm Neurosurgeon Dr. Dianne Rogers, Susan Mtz [employer] 12/10/2022 MRA brain W/WO: Satisfactory appearance of [...] - 4.00 k/uL 2.05 2.22 1.81 2.82 Addison% % 12.7 12.3 12.6 13.0 Abs Addison <0.87 k/uL 0.93 (H) 1.06 (H) 0.74 [...] recent CT scans which were done in [facility]. 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 Lua PACEMAKER 10/2019 PART. HYSTERECTOMY W/WO RMVL OVARIES/TUBES 1974 h/o cervical cancer ovaries remain PAST SURGICAL HISTORY OF 1996 Aortic valve repair, Dr. Apodaca PAST SURGICAL HISTORY OF 2001 [address] Beltrán, [facility] PAST SURGICAL HISTORY OF 2015 clipping [...] TABLET BY MOUTH TWICE A DAY 60 [id number] clopidogrel (PLAVIX) 75 mg tablet Take 1 [...] ARTERIES [facility] 2. Atherosclerosis of minto artery of both lower extremities with intermittent [...] UR - HGB A1C documented in this encounterScci Hospital [facility]ima06-08-2023 NoteHNO ID: [id number] Author: RT Pranav(R) Service: Radiology Author Type: [...] BY: RT Pranav(R) December 10, 2022 1:06 [facility]04-04-2023 History of Present illness Narrative* Doreen Le PA-C - 10/06/2022 9:00 AM EDT 77 year old female with c/o here for follow up Pedro Aneurysm Neurosurgeon Dr. Dianne Rogers, Susan Mtz [facility] 12/07/2017 note: f/u MRA recommended 202012/02/2017 [...] - 4.00 k/uL 2.05 2.22 1.81 2.82 Addison% % 12.7 12.3 12.6 13.0 Abs Addison <0.87 k/uL 0.93 (H) 1.06 (H) 0.74 [...] recent CT scans which were done in [facility]. 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 Lua PACEMAKER 10/2019 PART. HYSTERECTOMY W/WO RMVL OVARIES/TUBES 1974 h/o cervical cancer ovaries remain PAST SURGICAL HISTORY OF 1996 Aortic valve repair, Dr. Apodaca PAST SURGICAL HISTORY OF 2001 [address] Beltrán, [facility] PAST SURGICAL HISTORY OF 2016 clipping [...] Colon Skin Cancer Pad (Peripheral Artery Disease) ([facility]) Pedro Aneurysm of Anterior Communicating Artery [...] TABLET BY MOUTH TWICE A DAY 60 [id number] clopidogrel (PLAVIX) 75 mg tablet Take 1 [...] (primary diagnosis) 2. SSS (sick sinus syndrome) ([facility]) - ICD9: 427.81, ICD10: I49.5 3. Chronic combined systolic and diastolic CHF (congestive heart failure) ([facility]) - ICD9: 428.42, 428.0, ICD10: I50.42 4. Dilated cardiomyopathy (HCC) - ICD9: 425.4, ICD10: I42.0 5. Ascending aorta dilatation ([facility]) - ICD9: 447.71, ICD10: I77.810 [...] PANEL Doreen Le PA-C documented in this encounterScci Hospital [facility]ima04-03-2023 History of Present illness Narrative* Erin Lauren [...] 05, 2022 9:36 AM documented in this [facility]04-03-2023 Miscellaneous Notes* Result Encounter Note - Brayan Chicas MD - 10/05/2022 8:30 AM EDT Here are the test results.Keep follow up appointment to discuss the results. documented in this [facility]03-28-2023 Miscellaneous Notes* Telephone Encounter - Rachele Bee LPN - 09/29/2022 12:06 PM EDT Patient no longer followed by Dr. Lund. Rachele Bee LPN documented in this [facility]03-27-2023 Instructions* Patient Instructions* Carla Burdick MD - 09/28/2022 9:30 AM EDT We will repeat an echocardiogram in March Repeat fasting blood work documented in this encounterScci Hospital [facility]ima03-27-2023 History of Present illness Narrative* Carla Burdick MD - 09/28/2022 9:00 AM EDT Images from the original note were not included. [facility] SECTION OF REGIONAL CARDIOLOGY Cardiology ([facility]) [address] [facility] [id number] OUTPATIENT VISIT DATE 09/28/2022 PRIMARY CARE PHYSICIAN: Doreen Le [address] [place] [address] HISTORY OF PRESENT ILLNESS: Ms. Sanches is [...] Pacemaker 10/21/[address] SELAM BARTELTT [id number] pulse generator, his bundle lead, right atrial lead Peripheral arterial disease (HCC) Rheumatic fever Steatosis, liver 03/26/2014 fatty liver on US. No gallstones Tachy-pavan syndrome (HCC) PAST SURGICAL HISTORY Procedure Laterality Date ABLATION 2018 for afib ANESTHESIA EXTERNAL MIDDLE & INNER EAR W/BX NOS 2002, 2004,04/30/15 CARDIOVERSION 2018 EGD 02/28/2021 ESOPHAGOGASTRODUODENOSCOPY TRANSORAL DIAGNOSTIC 02/28/2021 LAP COLECTOMY, SIGMOID W/INSULATION WORKER N/A 07/18/2019 for colovesicle fistula - Dr. Mosley MASTOIDECTOMY Right 04/30/2015 cholesteatoma removed, Dr. Lua PACEMAKER 10/2019 PART. HYSTERECTOMY W/WO RMVL OVARIES/TUBES 1973 h/o cervical cancer ovaries remain PAST SURGICAL HISTORY OF 1996 Aortic valve repair, Dr. Apodaca PAST SURGICAL HISTORY OF 2001 [address] Beltrán, [facility] PAST SURGICAL HISTORY OF 2016 clipping [...] (FLUSH) INJECTION SYRINGE 3. Paroxysmal atrial fibrillation ([facility]) - ICD9: 427.31, ICD10: I48.0 Status post Watchman procedure. Patient has been maintained on low-dose aspirin. Repeat CBC is pending 4. Ascending aorta dilatation ([facility]) - ICD9: 447.71, ICD10: I77.810 5. Dilated cardiomyopathy ([facility]) - ICD9: 425.4, ICD10: I42.0 Patient maintained on Toprol and losartan. 6. Chronic combined systolic and diastolic CHF (congestive heart failure) ([facility]) - ICD9: 428.42, 428.0, ICD10: I50.42 Patient doing well on current diuretic therapy low-sodium diet 7. SSS (sick sinus syndrome) ([facility]) - ICD9: 427.81, ICD10: I49.5 8. S/P placement of cardiac pacemaker - ICD9: V45.01, ICD10: Z95.0 9. PAD (peripheral artery disease) ([facility]) - ICD9: 443.9, ICD10: I73.9 History of mild bilateral carotid artery disease. No symptoms for TIA or CVA. 10. Hyperlipidemia with target LDL less than 70 - ICD9: 272.4, ICD10: E78.5 Maintained on simvastatin 20 mg daily. Repeat fasting lipid panel - LIPID PANEL BASIC Carla Burdick MD documented in this encounterScci Hospital [facility]ima02-27-2023 Miscellaneous Notes* Telephone Encounter - Margoth Bolaños [...] 10/06/22 Margoth Bolaños MA documented in this encounterScci Hospital [facility]ima01-18-2023 Miscellaneous Notes* Telephone Encounter - Mars Xiao - 07/22/2022 12:54 PM EST Study explained/reviewed with patient. Study related follow-up requirements were discussed. Risks, benefits, alternatives, personnel, and costs of the study explained/reviewed. Patient provided informed consent for review by email. Study related questions were addressed. Provided patient with contact information to call. Mars Xiao documented in this encounterScci Hospital [facility]ima01-16-2023 Miscellaneous Notes* Telephone Encounter - Sheree Savage Ma - 07/20/2022 12:11 PM EST Faxed to [facility] at [phone] * Telephone Encounter - Sheree Savage Ma - 07/08/2022 12:45 PM EST Request sent to radiology * Telephone Encounter - Doreen Le PA-C - 07/08/2022 10:37 AM EST Please have 02/21/[address] IVC PE from [facility] imported and reviewed by radiologist for comparison with 03/19/2022 CT chest w IVCON PE. Not sure if this is the right order or even if needs order. Telephone on 07/08/22 CONSULT TO RADIOLOGY Edmund Alex PA-C documented in this encounterScci Hospital [facility]ima01-03-2023 History of Present illness Narrative* Doreen Le [...] 1.00 - 4.00 k/uL 2.05 2.22 1.81 Addison% % 12.7 12.3 12.6 Abs Addison <0.87 k/uL 0.93 (H) 1.06 (H) 0.74 [...] artery Neurosurgeon Dr. Dianne Rogers, Susan Mtz [employer] 12/07/2017 note: f/u MRA 202012/02/2017 MRA brain [...] gangrene, without long-term current use of insulin ([facility]) Current medications: none Taking medication as directed [...] recent CT scans which were done in [facility]. Anemia, blood loss As above CBC 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 Lua PACEMAKER 10/2019 PART. HYSTERECTOMY W/WO RMVL OVARIES/TUBES 1974 h/o cervical cancer ovaries remain PAST SURGICAL HISTORY OF 1996 Aortic valve repair, Dr. Apodaca PAST SURGICAL HISTORY OF 2001 [address] Beltrán, [facility] PAST SURGICAL HISTORY OF 2016 clipping [...] Colon Skin Cancer Pad (Peripheral Artery Disease) ([facility]) Pedro Aneurysm of Anterior Communicating Artery Stage 3 Chronic Renal Impairment Associated With Type 2 Diabetes Mellitus ([facility]) History of Pulmonary Embolism Ascending Aorta Dilatation ([facility]) Chronic Bilateral Pleural Effusions Colovesical Fistula Right Renal Mass Diverticulitis Large Intestine W/O Perforation Or Abscess W/O Bleeding Renal Cell Carcinoma, Right ([facility]) Iron Deficiency Anemia Hypomagnesemia Gastrointestinal Hemorrhage Associated With Acute Gastritis Esophageal Stenosis Dilated Cardiomyopathy (Hcc) Chronic Systolic Congestive Heart Failure ([facility]) Sss (Sick Sinus Syndrome) ([facility]) Duodenal Ulcer Type 2 Diabetes Mellitus With Diabetic Peripheral Angiopathy Without Gangrene, Without Long-Term Current Use of Insulin ([facility]) Longstanding Persistent Atrial Fibrillation ([facility]) S/P Placement of Cardiac Pacemaker Ckd (Chronic Kidney Disease) Platelet Inhibition Due to Plavix Diverticulosis Lung Nodule, Solitary Red Blood Cell Antibody Positive Iron Deficiency Anemia Secondary to Inadequate Dietary Iron Intake Iron Malabsorption Chronic Renal Failure, Stage 3b ([facility]) Current Outpatient Medications Medication Sig Dispense Refill losartan (COZAAR) 50 mg tablet Take 1 tablet by mouth once daily. 90 tablet 3 metoprolol succinate ER (TOPROL XL) 50 mg 24 hr tablet TAKE 1 TABLET BY MOUTH TWICE A DAY 60 [id number] furosemide (LASIX) 20 mg tablet Take 2 [...] months Doreen Le PA-C documented in this encounterScci Hospital [facility]ima11-21-2022 Miscellaneous Notes* Telephone Encounter - Lizeth Du LPN - 05/25/2022 7:25 AM EST Refill not appropriate at this time, according to records there should be at least 2 refills available. documented in this encounterScci Hospital [facility]ima11-10-2022 History of Present illness Narrative* Sonny Lund MD - 05/14/2022 9:28 AM EST PATIENT NAME: Berta Sanches. CLINIC NO: [id number]. ATTENDING PHYSICIAN: Sonny Lund MD. DATE OF SERVICE:05/14/2022. DIAGNOSIS: Iron deficiency anemia HPI: This is a 76-year-old lady with history of atrial fibrillation, prosthetic aortic valve replacement and congestive heart failure who presented to [facility] recently for decompensated heartfailure and severe anemia [...] Abs Lymph 1.00 - 4.00 k/uL 1.81 Addison% % 12.6 Abs Addison <0.87 k/uL 0.74 Eosin% % 2.2 Abs [...] Cc: Doreen Le PA-C documented in this encounterScci Hospital [facility]ima10-19-2022 Miscellaneous Notes* Telephone Encounter - Lizeth Mcknight [...] 06-08-2022. Lizeth Mcknight LPN documented in this encounterScci Hospital [facility]ima10-06-2022 Miscellaneous Notes* Telephone Encounter - Sheree Savage Ma - 04/09/2022 3:32 PM EDT Please schedule CT chest for 3 months. Thanks, Edmund Le PA-C documented in this encounterScci Hospital [facility]ima10-06-2022 History of Present illness Narrative* Brayan Chicas 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 Lua PACEMAKER 10/2019 PART. HYSTERECTOMY W/WO RMVL OVARIES/TUBES 1973 h/o cervical cancer ovaries remain PAST SURGICAL HISTORY OF 1996 Aortic valve repair, Dr. Apodaca PAST SURGICAL HISTORY OF 2001 [address] Beltrán, [facility] PAST SURGICAL HISTORY OF 2015 clipping [...] 74 - 99 mg/dL Final Comment: The [place] Diabetes Association (ADA) provides guidance for cutoff [...] Standards of Medical Care in Diabetes 2016, [place] [employer]. Diabetes Care. 2016.39(Suppl 1). I [...] extrapolated by contextual derivation. documented in this encounterScci Hospital [facility]ima10-05-2022 Miscellaneous Notes* Telephone Encounter - Daysi Gray [...] infusions. Ralph Mujica DO documented in this encounterScci Hospital [facility]ima10-03-2022 Instructions* Patient Instructions* Doreen Le PA-C - [...] cup-Beef (cooked) 2 oz-Beet greens (cooked) 1/2 cup-Julian nuts 5 medium-Cereals 1 oz-Chicken (cooked) 3 [...] cup- Tongue 2 oz- Tuna 1/2 cup- Pateros (cooked) 1 oz- Veal (cooked) 1 oz- Watermelon (6x11/2) 1 slice-Wheat Germ 2 tbsp. Iron supplements are absorbed best when taken between meals, with liquids other than milk, coffee, or tea. Taking them at bedtime often helps reduce the chance of nausea. If you can't tolerate daily, try at least three times a week. documented in this encounterScci Hospital [facility]ima10-03-2022 History of Present illness Narrative* Doreen Le PA-C - 04/06/2022 10:20 AM EDT 76 year old female with c/o here for follow hospital Not doing well Very SOB No stamina, very SOB. Mentioned iron infusions. Hospital discharge follow-up Facility [facility] Admission date 03/19/2022 Discharge date 03/22/2022 Pre-hospitalization details: See note 03/19/2022: CHF, EKG AF, hx GIB melena admitted 02/21-02/24/2022 [place]. 03/19/22 Sent from office to [facility]: VS 145/84-407-93-97.1F- 98% RA Exam + rales. 2/4+ pitting [...] Abs Lymph 1.00 - 4.00 k/uL 2.09 Addison% % 9.6 Abs Addison <0.87 k/uL 0.77 Eosin% % 1.9 Abs [...] deficiency anemia Hypomagnesemia SSS (sick sinus syndrome) ([facility]) Type 2 diabetes mellitus with diabetic peripheral angiopathy without gangrene, without long-term current use of insulin (HCC) Longstanding persistent atrial fibrillation ([facility]) S/P placement of cardiac pacemaker [...] control presents having taken a trip to [place] and having had no control over the food served for the amount of salt in it and had progressive swelling in her legs and then subsequently shortness of breath developing. A right 2.5 cm superior pole the rightkidney mass was found concerning for neoplasm that had been noted as long ago as June 2019. On return to [facility], she had presented to the emergency department [...] Review Reviewed by Walter Bates MD, Ph.D ([id number]) Protein, Total 6.3 - 8.0 g/dL 6.0 [...] 2 weeks for nephrology order [facility] in [facility] FOLLOW-UP: GI in 2 days scheduled, lung nodule clinic to be scheduled, urology to be scheduled, and nephrology in 4 to 6 weeks to be scheduled LABS AND PROCEDURES PENDING AT DISCHARGE: No pending results. INCIDENTAL OR ACTIONABLE FINDING (Last Refresh: 03/22/2022 2:27 PM) Test(s): CT CHEST W IVCON PE FOLLOW-UP APPOINTMENTS ALREADY SCHEDULED WITH A [facility] PROVIDER: Future Appointments Date Time Provider Department Center 03/30/2022 8:40 AM MD MEME Beard 04/14/2022 10:00 AM Albin Gu APRN.CNP [facility]GIES ALLERGIES Allergen Reactions Protamine 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 Lua PACEMAKER 10/2019 PART. HYSTERECTOMY W/WO RMVL OVARIES/TUBES 1974 h/o cervical cancer ovaries remain PAST SURGICAL HISTORY OF 1996 Aortic valve repair, Dr. Apodaca PAST SURGICAL HISTORY OF 2001 [address] Beltrán, [facility] PAST SURGICAL HISTORY OF 2015 clipping [...] X (OR/PROCEDURE) PRN Randy Gustafson MD 2 [place] at 03/03/22 1149 fentaNYL 50 mcg/mL injection [...] ICD10: I49.5 6. Atrial fibrillation, unspecified type ([facility]) - ICD9: 427.31, ICD10: I48.91 [...] comparison. Doreen Le PA-C documented in this encounterScci Hospital [facility]09-26-2022 Miscellaneous Notes* Telephone Encounter - Sigifredo Rivera [...] Thanks, Edmund Le PA-C documented in this [facility]09-26-2022 Instructions* Patient Instructions* Carla Burdick MD - 03/30/2022 9:13 AM EDT We are increasing the Toprol (Metoprolol succinate) to 50 mg two times per day We are replacing the Lisinopril with Losartan 25 mg once per day Repeat blood work 7-10 days after starting the Losartan documented in this [facility]09-26-2022 History of Present illness Narrative* Carla Burdick MD - 03/30/2022 8:40 AM EDT Images from the original note were not included. [facility] SECTION OF REGIONAL CARDIOLOGY Cardiology ([facility]) [address] [facility] [id number] OUTPATIENT VISIT DATE 03/30/2022 PRIMARY CARE PHYSICIAN: Doreen Le [address] [place] [address] HISTORY OF PRESENT ILLNESS: Ms. aSnches is a 76 year old woman with a history of remote aortic valve replacement with homograft in 1996 and possible repair of the ascending aorta, hypertension, dyslipidemia, atrial fibrillation with history of pulmonary vein isolation procedures, pacemaker placement recent watchman procedurewho presents for follow-up after hospital admission for congestive heart failure. She had gone on acruise to [place] and developed lower extremity edema and worsening shortness of breath. On return to [place], she had worsening symptoms of weight gain, PND, and orthopnea symptoms. She was seen at [facility] and was treated for acute systolic congestive 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 Lua PACEMAKER 10/2019 PART. HYSTERECTOMY W/WO RMVL OVARIES/TUBES 1974 h/o cervical cancer ovaries remain PAST SURGICAL HISTORY OF 1996 Aortic valve repair, Dr. Apodaca PAST SURGICAL HISTORY OF 2001 [address] Beltrán, [facility] PAST SURGICAL HISTORY OF 2015 clipping [...] - Exam was compared with the prior [facility] echocardiographic exam performed on 01/12/2022. 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 Carla Burdick MD documented in this encounterS[facility]22 Miscellaneous Notes* Telephone Encounter - Juan Diego Carroll Jr., MD - 03/21/2022 10:51 AM EDT [facility] consult Needs appt with [facility] in [place] * Telephone Encounter - Juan Diego Carroll Jr., MD - 03/21/2022 10:51 AM EDT ----- Message from Huy Chauhan MD sent at 03/21/2022 9:11 AM EDT ----- Regarding: Renal mass Thank you Mike. Son documented in this encounterScci Hospital [facility]09-16-2022 History of Present illness Narrative* Sheridan Cervantes RN - 03/20/2022 8:22 AM EDT TRANSITION CARE MANAGEMENT (TCM) FOLLOW-UP NOTE Provider Action/FYI Chart reviewed. TCM removed name from TEAMS due to [facility] admission 03/19/22 chf. TCM follow up pending hospital discharge disposition. Summary: Pt discharged from [facility] on 02/24. 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 Patient had her eyes examined in [place] this year and was told that she [...] of this encounter (statuses as of 03/23/2022) [facility] History of Past illness Narrative* Problem Noted [...] beds in local hospital, transferred to [facility]. Anemia due to GI blood loss 10/24/201903/05 [...] 12/22/2018 Prosthetic aortic valve stenosis 11/19/2016 12/22/2018 detention current use of antiarrhythmic medical therapy 10/20/2016 [...] diarrhea. Patient had her eyes examined in [place] this year and was told that she [...] of this encounter (statuses as of 03/28/2022) [facility] History of Past illness Narrative* Problem Noted [...] beds in local hospital, transferred to [facility]. Anemia due to GI blood loss 10/24/201903/05 [...] 12/22/2018 Prosthetic aortic valve stenosis 11/19/2016 12/22/2018 detention current use of antiarrhythmic medical therapy 10/20/2016 [...] diarrhea. Patient had her eyes examined in [place] this year and was told that she [...] of this encounter (statuses as of 03/30/2022) [facility] of Past illness Narrative* Problem Noted [...] beds in local hospital, transferred to [facility]. 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 Patient had her eyes examined in [place] this year and was told that she [...] of this encounter (statuses as of 03/30/2022) [facility] of Past illness Narrative* Problem Noted [...] beds in local hospital, transferred to [facility]. Anemia due to GI blood loss 10/24/201903/05 [...] 12/22/2018 Prosthetic aortic valve stenosis 11/19/2016 12/22/2018 detention current use of antiarrhythmic medical therapy 10/20/2016 [...] diarrhea. Patient had her eyes examined in [place] this year and was told that she [...] of this encounter (statuses as of 04/06/2022) [facility] of Past illness Narrative* Problem Noted [...] beds in local hospital, transferred to [facility]. 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 Patient had her eyes examined in [place] this year and was told that she [...] of this encounter (statuses as of 04/07/2022) [facility] of Past illness Narrative* Problem Noted [...] beds in local hospital, transferred to [facility]. Anemia due to GI blood loss 10/24/201903/05 [...] 12/22/2018 Prosthetic aortic valve stenosis 11/19/2016 12/22/2018 detention current use of antiarrhythmic medical therapy 10/20/2016 [...] diarrhea. Patient had her eyes examined in [place] this year and was told that she [...] of this encounter (statuses as of 04/08/2022) [facility] of Past illness Narrative* Problem Noted [...] beds in local hospital, transferred to [facility]. Anemia due to GI blood loss 10/24/201903/05 [...] 12/22/2018 Prosthetic aortic valve stenosis 11/19/2016 12/22/2018 detention current use of antiarrhythmic medical therapy 10/20/2016 [...] diarrhea. Patient had her eyes examined in [place] this year and was told that she [...] of this encounter (statuses as of 04/09/2022) [facility] of Past illness Narrative* Problem Noted [...] beds in local hospital, transferred to [facility]. 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 Patient had her eyes examined in [place] this year and was told that she [...] of this encounter (statuses as of 04/17/2022) [facility] of Past illness Narrative* Problem Noted [...] beds in local hospital, transferred to [facility]. Anemia due to GI blood loss 10/24/201903/05 [...] 12/22/2018 Prosthetic aortic valve stenosis 11/19/2016 12/22/2018 detention current use of antiarrhythmic medical therapy 10/20/2016 [...] diarrhea. Patient had her eyes examined in [place] this year and was told that she [...] of this encounter (statuses as of 04/20/2022) [facility] of Past illness Narrative* Problem Noted [...] beds in local hospital, transferred to [facility]. Anemia due to GI blood loss 10/24/201903/05 [...] 12/22/2018 Prosthetic aortic valve stenosis 11/19/2016 12/22/2018 detention current use of antiarrhythmic medical therapy 10/20/2016 [...] diarrhea. Patient had her eyes examined in [place] this year and was told that she [...] of this encounter (statuses as of 04/22/2022) [facility] of Past illness Narrative* Problem Noted [...] beds in local hospital, transferred to [facility]. Anemia due to GI blood loss 10/24/201903/05 [...] 12/22/2018 Prosthetic aortic valve stenosis 11/19/2016 12/22/2018 detention current use of antiarrhythmic medical therapy 10/20/2016 [...] diarrhea. Patient had her eyes examined in [place] this year and was told that she [...] of this encounter (statuses as of 04/23/2022) [facility] of Past illness Narrative* Problem Noted [...] beds in local hospital, transferred to [facility]. 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 Patient had her eyes examined in [place] this year and was told that she [...] of this encounter (statuses as of 04/28/2022) [facility] of Past illness Narrative* Problem Noted [...] beds in local hospital, transferred to [facility]. 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 Patient had her eyes examined in [place] this year and was told that she [...] of this encounter (statuses as of 05/15/2022) [facility] of Past illness Narrative* Problem Noted [...] beds in local hospital, transferred to [facility]. 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 Patient had her eyes examined in [place] this year and was told that she [...] of this encounter (statuses as of 05/25/2022) [facility] of Past illness Narrative* Problem Noted [...] beds in local hospital, transferred to [facility]. 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 Patient had her eyes examined in [place] this year and was told that she [...] of this encounter (statuses as of 05/29/2022) [facility] of Past illness Narrative* Problem Noted [...] beds in local hospital, transferred to [facility]. Anemia due to GI blood loss 10/24/201903/05 [...] 12/22/2018 Prosthetic aortic valve stenosis 11/19/2016 12/22/2018 detention current use of antiarrhythmic medical therapy 10/20/2016 [...] diarrhea. Patient had her eyes examined in [place] this year and was told that she [...] of this encounter (statuses as of 07/06/2022) [facility] of Past illness Narrative* Problem Noted [...] beds in local hospital, transferred to [facility]. Anemia due to GI blood loss 10/24/201903/05 [...] 12/22/2018 Prosthetic aortic valve stenosis 11/19/2016 12/22/2018 detention current use of antiarrhythmic medical therapy 10/20/2016 [...] diarrhea. Patient had her eyes examined in [place] this year and was told that she [...] of this encounter (statuses as of 07/09/2022) [facility] of Past illness Narrative* Problem Noted [...] beds in local hospital, transferred to [facility]. Anemia due to GI blood loss 10/24/201903/05 [...] 12/22/2018 Prosthetic aortic valve stenosis 11/19/2016 12/22/2018 detention current use of antiarrhythmic medical therapy 10/20/2016 [...] diarrhea. Patient had her eyes examined in [place] this year and was told that she [...] of this encounter (statuses as of 07/22/2022) [facility] of Past illness Narrative* Problem Noted [...] beds in local hospital, transferred to [facility]. Anemia due to GI blood loss 10/24/201903/05 [...] 12/22/2018 Prosthetic aortic valve stenosis 11/19/2016 12/22/2018 detention current use of antiarrhythmic medical therapy 10/20/2016 [...] diarrhea. Patient had her eyes examined in [place] this year and was told that she [...] of this encounter (statuses as of 07/22/2022) [facility] of Past illness Narrative* Problem Noted [...] beds in local hospital, transferred to [facility]. Anemia due to GI blood loss 10/24/201903/05 [...] 12/22/2018 Prosthetic aortic valve stenosis 11/19/2016 12/22/2018 detention current use of antiarrhythmic medical therapy 10/20/2016 [...] diarrhea. Patient had her eyes examined in [place] this year and was told that she [...] of this encounter (statuses as of 09/01/2022) [facility] of Past illness Narrative* Problem Noted [...] beds in local hospital, transferred to [facility]. Anemia due to GI blood loss 10/24/201903/05 [...] 12/22/2018 Prosthetic aortic valve stenosis 11/19/2016 12/22/2018 detention current use of antiarrhythmic medical therapy 10/20/2016 [...] diarrhea. Patient had her eyes examined in [place] this year and was told that she [...] of this encounter (statuses as of 09/27/2022) [facility] of Past illness Narrative* Problem Noted [...] beds in local hospital, transferred to [facility]. 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 Patient had her eyes examined in [place] this year and was told that she [...] of this encounter (statuses as of 09/28/2022) [facility] of Past illness Narrative* Problem Noted [...] beds in local hospital, transferred to [facility]. 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 Patient had her eyes examined in [place] this year and was told that she [...] of this encounter (statuses as of 09/29/2022) [facility] of Past illness Narrative* Problem Noted [...] beds in local hospital, transferred to [facility]. Anemia due to GI blood loss 10/24/201903/05 [...] 12/22/2018 Prosthetic aortic valve stenosis 11/19/2016 12/22/2018 detention current use of antiarrhythmic medical therapy 10/20/2016 [...] diarrhea. Patient had her eyes examined in [place] this year and was told that she [...] of this encounter (statuses as of 10/07/2022) [facility] of Past illness Narrative* Problem Noted [...] beds in local hospital, transferred to [facility]. 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 Patient had her eyes examined in [place] this year and was told that she [...] of this encounter (statuses as of 12/29/2022) [facility] of Past illness Narrative* Problem Noted [...] beds in local hospital, transferred to [facility]. Anemia due to GI blood loss 10/24/2019 [...] 12/22/2018 Prosthetic aortic valve stenosis 11/19/2016 12/22/2018 detention current use of ant iarrhythmic medical therapy [...] diarrhea. Patient had her eyes examined in [place] this year and was told that she [...] of this encounter (statuses as of 01/09/2023) [facility] of Past illness Narrative* Problem Noted [...] beds in local hospital, transferred to [facility]. 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 Patient had her eyes examined in [place] this year and was told that she [...] of this encounter (statuses as of 01/28/2023) [facility] of Past illness Narrative* Problem Noted [...] beds in local hospital, transferred to [facility]. 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 Patient had her eyes examined in [place] this year and was told that she [...] of this encounter (statuses as of 03/15/2023) [facility] of Past illness Narrative* Problem Noted [...] beds in local hospital, transferred to [facility]. 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 Patient had her eyes examined in [place] this year and was told that she [...] of this encounter (statuses as of 03/28/2023) [facility] of Past illness Narrative* Problem Noted [...] beds in local hospital, transferred to [facility]. Anemia due to GI blood loss 10/24/2019 [...] 12/22/2018 Prosthetic aortic valve stenosis 11/19/2016 12/22/2018 detention current use of ant iarrhythmic medical therapy [...] diarrhea. Patient had her eyes examined in [place] this year and was told that she [...] of this encounter (statuses as of 05/07/2023) [facility] of Past illness Narrative* Problem Noted [...] beds in local hospital, transferred to [facility]. Anemia due to GI blood loss 10/24/2019 [...] 12/22/2018 Prosthetic aortic valve stenosis 11/19/2016 12/22/2018 detention current use of ant iarrhythmic medical therapy [...] diarrhea. Patient had her eyes examined in [place] this year and was told that she [...] of this encounter (statuses as of 05/07/2023) [facility] of Past illness Narrative* Problem Noted [...] beds in local hospital, transferred to [facility]. 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 Patient had her eyes examined in [place] this year and was told that she [...] of this encounter (statuses as of 05/21/2023) [facility] of Past illness Narrative* Problem Noted [...] beds in local hospital, transferred to [facility]. 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 Patient had her eyes examined in [place] this year and was told that she [...] of this encounter (statuses as of 06/08/2023) [facility] illness Narrative* Problem Noted [...] beds in local hospital, transferred to [facility]. 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 Patient had her eyes examined in [place] this year and was told that she [...] of this encounter (statuses as of 07/05/2023) [facility] of Past illness Narrative* Problem Noted [...] beds in local hospital, transferred to [facility]. Anemia due to GI blood loss 10/24/2019 [...] 12/22/2018 Prosthetic aortic valve stenosis 11/19/2016 12/22/2018 detention current use of ant iarrhythmic medical therapy [...] diarrhea. Patient had her eyes examined in [place] this year and was told that she [...] of this encounter (statuses as of 10/15/2023) [facility] Past illness Narrative* Problem Noted [...] beds in local hospital, transferred to [facility]. Anemia due to GI blood loss 10/24/2019 [...] 12/22/2018 Prosthetic aortic valve stenosis 11/19/2016 12/22/2018 detention current use of ant iarrhythmic medical therapy [...] diarrhea. Patient had her eyes examined in [place] this year and was told that she [...] of this encounter (statuses as of 10/16/2023) [facility] illness Narrative* Problem Noted [...] beds in local hospital, transferred to [facility]. Anemia due to GI blood loss 10/24/2019 [...] 12/22/2018 Prosthetic aortic valve stenosis 11/19/2016 12/22/2018 detention current use of ant iarrhythmic medical therapy [...] diarrhea. Patient had her eyes examined in [place] this year and was told that she [...] of this encounter (statuses as of 10/21/2023) [facility] of Present illness Narrative* M Claudia Le PA-C - 03/19/2022 10:40 AM EDT 76 year old female with extensive hx AF, CHF, HTN, S/P aortic valve replacemet, s/p Watchman procedure recently off coumadin c/o leg swelling bilaterally over last 4-5 days. Flew home from [place] last night. Did get up and walk several times during flight. . SOB x 4-5 days, can hardly go more than 10-15 steps without resting. No chest pain. Feels heart racing at times. No syncopal sx. Feels leg are warm, heavy No pain. Got back from [place] 2am this morning Able to lay supine. 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 Lua PACEMAKER 10/2019 PART. HYSTERECTOMY W/WO RMVL OVARIES/TUBES 1974 h/o cervical cancer ovaries remain PAST SURGICAL HISTORY OF 1996 Aortic valve repair, Dr. Apodaca PAST SURGICAL HISTORY OF 2001 [address] Beltrán, [facility] PAST SURGICAL HISTORY OF 2015 clipping [...] (TOPEX) X (OR/PROCEDURE) PRSondra Gustafson MD [address] [place] at 03/03/22 1149 fentaNYL 50 mcg/mL injection [...] <130/80 Doreen Le PA-C documented in this encounterScci Hospital [facility]09[facility]22 History of Present illness Narrative* Sheridan Cervantes RN - 03/05/2022 12:39 PM EDT TRANSITION CARE MANAGEMENT (TCM) FOLLOW-UP NOTE Provider Action/I Chart reviewed, TCM follow up call deferred due to 03/03 office visit with JASPREET Torres. Summary: Pt discharged from [facility] on 02/24. 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 plan for next outreach: Will follow up Signature Sheridan Cervantes RN March 05, 2022 documented in this encounterScci Hospital [facility]08-31-2022 Miscellaneous Notes* Addendum Note - Radha Torres APRN.CNP - 03/04/2022 10:54 AM EDTAddended by: RADHA TORRES on: 03/04/2022 10:54 AM Modules accepted: Orders, SmartSet * Addendum Note - Radha Torres APRN.CNP - 03/04/2022 9:46 AM EDTAddended by: RADHA TORRES on: 03/04/2022 09:46 AM Modules accepted: Orders documented in this encounterScci [facility]22 History of Present illness Narrative* Radha Torres APRN.CNP - 03/03/2022 12:00 PM EDT Images from the original note were not included. [facility] [place] Martha Meléndez Department of Cardiovascular Medicine SECTION OF CARDIAC PACING and ELECTROPHYSIOLOGY OUTPATIENT VISIT DATE March 03, 2022 OUTPATIENT VISIT TYPE ESTABLISHED PRIMARY CARE PHYSICIAN: Doreen Le [address] [place] [address] CHIEF COMPLAINT: Post Watchman follow up HISTORY [...] upper and lower endoscopy were non diagnostic. 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 Lua PACEMAKER 10/2019 PART. HYSTERECTOMY W/WO RMVL OVARIES/TUBES 1974 h/o cervical cancer ovaries remain PAST SURGICAL HISTORY OF 1996 Aortic valve repair, Dr. Apodaca PAST SURGICAL HISTORY OF 2001 [address] Beltrán, [facility] PAST SURGICAL HISTORY OF 2015 clipping [...] yearly in-clinic device checks. Ying Hart RN [place] to Dr. Fay in Dr. Gomez's absence [...] assess as well. - The following is customer support representative of measurements of LAXMI dimensions from [...] FOR LVH, MAY BE NORMAL VARIANT ( [place] product ) ABNORMAL ECG ABDIEL: CONCLUSIONS: - [...] upper and lower endoscopy were non diagnostic. [id number] score: 7 (congestive heart failure, hypertension, age [...] discussed. Rx for Plavix sent in to [facility]. Follow up advised with Dr. Washington to be scheduled. ABDIEL at 1 year from the Watchman procedure, around 01/12/2023. CONTACT INFORMATION: Radha Torres APRN.CNP documented in this encounterScci [facility]-30-2022 Nurse Note* Alexandre Avalos RN - 03/03/2022 [...] RN In Department: CARDIOLOGY documented in this encounterScci Hospital [facility]ima08-29-2022 Miscellaneous Notes* Telephone Encounter - Saima Englnad RN - 03/02/2022 2:10 PM EDT ECHO [...] In Department of CARDIOLOGY. documented in this encounterScci Hospital [facility]ima08-24-2022 History of Present illness Narrative* Harika Tomas RN - 02/25/2022 2:27 PM EDT TCM Home Visit Referral Source of Stratification: [facility] Admission Status: Discharged Readmission Risk Score: 18 [...] PROGRAM Provider Action/FYI: SUMMARY: Pt discharged from [facility] on 02/24. Admitted for: PRINCIPAL DIAGNOSIS: GI bleeding diverticular bleed/acute blood loss anemia Contact made with patient: No - 2nd unsuccessful attempt - end outreach and close encounter Outreach ended Harika Tmoas RN BSN [facility] [phone] * Harika Tomas RN - 02/25/2022 10:14 AM EDT TCM Home Visit Referral Source of Stratification: [facility] Admission Status: Discharged Readmission Risk Score: 18 [...] today or tomorrow SUMMARY: Pt discharged from [facility] on 02/24. Admitted for: PRINCIPAL DIAGNOSIS: GI bleeding diverticular bleed/acute blood loss anemia Contact made with patient: No - next outreach attempt will be on next day Outreach ended Harika Tomas RN BSN [facility] [phone] documented in this encounterScci Hospital [facility]ima08-21-2022 History of Past illness Narrative* Problem Noted [...] beds in local hospital, transferred to [facility]. 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 Patient had her eyes examined in [place] this year and was told that she [...] of this encounter (statuses as of 02/25/2022) [facility] History of Past illness Narrative* Problem Noted [...] beds in local hospital, transferred to [facility]. 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 Patient had her eyes examined in [place] this year and was told that she [...] of this encounter (statuses as of 03/02/2022) [facility] History of Past illness Narrative* Problem Noted [...] beds in local hospital, transferred to [facility]. Anemia 10/24/2019 09/12/2021 Last Assessment & Plan: [...] 12/22/2018 Prosthetic aortic valve stenosis 11/19/2016 12/22/2018 detention current use of antiarrhythmic medical therapy 10/20/2016 [...] diarrhea. Patient had her eyes examined in [place] this year and was told that she [...] of this encounter (statuses as of 03/03/2022) [facility] History of Past illness Narrative* Problem Noted [...] beds in local hospital, transferred to [facility]. Anemia 10/24/2019 09/12/2021 Last Assessment & Plan: [...] 12/22/2018 Prosthetic aortic valve stenosis 11/19/2016 12/22/2018 detention current use of antiarrhythmic medical therapy 10/20/2016 [...] diarrhea. Patient had her eyes examined in [place] this year and was told that she [...] of this encounter (statuses as of 03/04/2022) [facility] History of Past illness Narrative* Problem Noted [...] beds in local hospital, transferred to [facility]. Anemia 10/24/2019 09/12/2021 Last Assessment & Plan: [...] 12/22/2018 Prosthetic aortic valve stenosis 11/19/2016 12/22/2018 detention current use of antiarrhythmic medical therapy 10/20/2016 [...] diarrhea. Patient had her eyes examined in [place] this year and was told that she [...] of this encounter (statuses as of 03/05/2022) [facility] History of Past illness Narrative* Problem Noted [...] beds in local hospital, transferred to [facility]. Anemia 10/24/2019 09/12/2021 Last Assessment & Plan: [...] 12/22/2018 Prosthetic aortic valve stenosis 11/19/2016 12/22/2018 detention current use of antiarrhythmic medical therapy 10/20/2016 [...] diarrhea. Patient had her eyes examined in [place] this year and was told that she [...] of this encounter (statuses as of 03/11/2022) [facility] History of Past illness Narrative* Problem Noted [...] beds in local hospital, transferred to [facility]. Anemia 10/24/2019 09/12/2021 Last Assessment & Plan: [...] 12/22/2018 Prosthetic aortic valve stenosis 11/19/2016 12/22/2018 detention current use of antiarrhythmic medical therapy 10/20/2016 [...] diarrhea. Patient had her eyes examined in [place] this year and was told that she [...] of this encounter (statuses as of 03/20/2022) [facility] History of Past illness Narrative* Problem Noted [...] beds in local hospital, transferred to [facility]. 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 Patient had her eyes examined in [place] this year and was told that she [...] of this encounter (statuses as of 03/20/2022) [facility] History of Past illness Narrative* Problem Noted [...] beds in local hospital, transferred to [facility]. Renal cell carcinoma 10/24/2019 09/12/2021 Last Assessment [...] 12/22/2018 Prosthetic aortic valve stenosis 11/19/2016 12/22/2018 detention current use of antiarrhythmic medical therapy 10/20/2016 [...] diarrhea. Patient had her eyes examined in [place] this year and was told that she [...] of this encounter (statuses as of 03/21/2022) [facility] Miscellaneous Notes* Telephone Encounter - Rojelio Jamison [...] testing. Giovanna Powell RN documented in this encounterScci Hospital Lima08-19-2022 History of Present illness Narrative* Doreen Le [...] anxious about potential risk of having to [place] with family. 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 Lua PACEMAKER 10/2019 PART. HYSTERECTOMY W/WO RMVL OVARIES/TUBES 1973 h/o cervical cancer ovaries remain PAST SURGICAL HISTORY OF 1996 Aortic valve repair, Dr. Apodaca PAST SURGICAL HISTORY OF 2001 [address] Beltrán, [facility] PAST SURGICAL HISTORY OF 2016 clipping [...] PNL Doreen Le PA-C documented in this encounterScci Hospital Lima07-20-2022 Miscellaneous Notes* Telephone Encounter - Deonna Manny - 01/21/2022 10:30 AM EDT January 21, 2022 Patient Contact Number: [phone] (home) [phone] (cell) Patient last seen within the last year: Yes Reason for Call: Patient called to schedule follow up from Watchman procedure. Order for ABDIEL needs to be placed (can be done by AUTO WHEEL ALIGNMENT SPECIALIST) and patient should contact office as soon as ABDIEL is done so it can be reviewed (should be done 45 days after the procedure). AUTO WHEEL ALIGNMENT SPECIALIST: Please place Order for ABDIEL. Admin to request ABDIEL for after 02/26/2022 but before 03/07/2022. Thank you, Deonna Bryant, Marisol documented in this encounterScci Hospital Lima07-18-2022 Miscellaneous Notes* Telephone Encounter - Ivory Carrion Adm - 01/19/2022 11:05 AM EDT Call from pharmacy requesting refill. Pending Prescriptions Disp Refills ASPIRIN 81 MG CHEWABLE TABLET 90 tablet 3 Sig: Take 1 tablet by mouth once daily. BRAYAN: No Patient last seen 01/09/2022 Ivory Rossishirley Adm documented in this encounterScci Hospital Lima07-15-2022 Instructions* Patient Instructions* Doreen Le PA-C - [...] keep your stress under control. Published by [employer]. This content is reviewed periodically and is subject to change as new health information becomes available. The information is intended to inform and educate and is not a replacement for medical evaluation, advice, diagnosis or treatment by a healthcare professional. Developed by [employer]. Copyright 2005 [employer] and/or one of its subsidiaries. All Rights Reserved. documented in this encounterScci Hospital [facility]ima07-15-2022 History of Present illness Narrative* Doreen Le 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 Lua PACEMAKER 10/2019 PART. HYSTERECTOMY W/WO RMVL OVARIES/TUBES 1973 h/o cervical cancer ovaries remain PAST SURGICAL HISTORY OF 1996 Aortic valve repair, Dr. Apodaca PAST SURGICAL HISTORY OF 2001 [address] Beltrán, [facility] PAST SURGICAL HISTORY OF 2015 clipping [...] Colon Skin Cancer Pad (Peripheral Artery Disease) ([facility]) Pedro Aneurysm of Anterior Communicating Artery Stage 3 Chronic Renal Impairment Associated With Type 2 Diabetes Mellitus ([facility]) History of Pulmonary Embolism Ascending Aorta Dilatation ([facility]) Chronic Bilateral Pleural Effusions Colovesical Fistula Renal Mass, Right Diverticulitis Large Intestine W/O Perforation Or Abscess W/O Bleeding Renal Cell Carcinoma, Right (Hcc) Iron Deficiency Anemia Hypomagnesemia Gastrointestinal Hemorrhage Associated With Acute Gastritis Esophageal Stenosis Dilated Cardiomyopathy (Hcc) Chronic Diastolic Congestive Heart Failure (Hcc) Sss (Sick Sinus Syndrome) ([facility]) Duodenal Ulcer Type 2 Diabetes Mellitus With Diabetic Peripheral Angiopathy Without Gangrene, Without Long-Term Current Use of Insulin (Hcc) Atrial Fibrillation ([facility]) Current Outpatient Medications Medication Sig Dispense [...] Resp 16 Wt 64.4 kg (142 lb) LzM502% BMI 25.15 kg/m Pleasant frail adult womanin [...] OINTMENT Doreen Le PA-C documented in this encounterScci Hospital [facility]ima07-08-2022 History of Present illness Narrative* Diane Blanchard [...] discussed with Physician, nurse practitioner or Physician project construction assistant manager upon discharge Instructions for transmitting EKG to [facility] 3 month follow up instructions Contact number for information and questions Patient Evaluation: Verbalizes understanding Follow Up Plan: Follow up as directed by MD. Supplemental Material Given: Written Material Patient education regarding radiation exposure. Instructed By Diane Blanchard RN. In Department of CARDIOLOGY. documented in this encounterScci Hospital [facility]ima07-08-2022 Instructions* Patient Instructions* Emilia Diallo MD - 01/09/2022 2:19 PM EDT Proceed with your Watchman evaluation. Consider discussing a hematology evaluation in addition to further GI work up as appropriate. Follow up with Dr. Burdick as planned. Follow up with PCP re: prevention in addition to follow up of the kidney mass that was identified on the CT. documented in this encounterScci Hospital [facility]ima07-08-2022 History of Present illness Narrative* Emilia Diallo MD - 01/09/2022 2:15 PM EDT Images from the original note were not included. [facility] [place] Martha Meléndez Department of Cardiovascular Medicine SECTION OF CLINICAL CARDIOLOGY OUTPATIENT VISIT DATE January 09, 2022 OUTPATIENT VISIT TYPE CON PRIMARY CARE PHYSICIAN: Doreen Le [address] [place] [address] REFERRING PHYSICIAN: Chandler Swan [address] [facility] [id number] CHIEF COMPLAINT: Shared decision making for Watchman [...] 7.7. Received 2 unit(s) PRBCs last week. [id number] score: 7 (congestive heart failure, hypertension, age >/=75, diabetes, vascular disease, female) - on Xarelto 15 mg HASBLED score: 4 (HTN, CKD, bleeding, elderly) She complains of chronic shortness of breath and fatigue. She denies chest pain, orthopnea, cough, edema, palpitations, PND, lightheadedness or syncope. Nursing Intake : Ms. Berta Sanches is a 76 year old female from [place], [place] here today for preopeartive cardiovascular evaluation [...] ESOPHAGOGASTRODUODENOSCOPY TRANSORAL DIAGNOSTIC 07/18/2019: LAP COLECTOMY, SIGMOID W/INSULATION WORKER; N/A Comment: for colovesicle fistula - Dr. Mosley 04/30/2015: MASTOIDECTOMY; Right Comment: cholesteatoma removed, Dr. Lua 10/2019: PACEMAKER 1974: PART. HYSTERECTOMY W/WO RMVL OVARIES/TUBES Comment: h/o cervical cancer ovaries remain 1996: PAST SURGICAL HISTORY OF Comment: Aortic valve repair, Dr. Apodaca 2001: PAST SURGICAL HISTORY OF Comment: [address] Beltrán, [facility] 2016: PAST SURGICAL HISTORY OF Comment: [...] Abs Lymph 1.00 - 4.00 k/uL 1.82 Addison% % 14.0 Abs Addison <0.87 k/uL 1.27 (H) Eosin% % 1.9 [...] etiology while on Xarelto. Unknown etiology. Her [id number] is elevated at 7 portenidng an increased risk of CVA and her HASBLED score is elevated. It is reasonable to consider Watchman procedure as after undergoing a LAXMI closure procedure, she will not need assisted anticoagulation which eliminates anticoagulation side effects and major bleeding risk. After today's visit with Mrs. Sanches, which was dedicated solely for shared decision making visitregarding LAXMI closure device, she decided to proceed with the LAXMI appendage closure procedure [facility] the [facility]. Of note, she should continue with her [...] 09, 2022, 5:59 PM documented in this encounterScci Hospital [facility]ima07-01-2022 History and physical note * Chai Encinas [...] likely gallbladder issues. 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 Lua PACEMAKER 10/2019 PART. HYSTERECTOMY W/WO RMVL OVARIES/TUBES 1974 h/o cervical cancer ovaries remain PAST SURGICAL HISTORY OF 1996 Aortic valve repair, Dr. Apodaca PAST SURGICAL HISTORY OF 2001 [address] Beltrán, [facility] PAST SURGICAL HISTORY OF 2015 clipping [...] entered by the nurse and reviewed by nc Nursing Notes: Stacie Mancera LPN 01/01/2022 9:48 [...] her for urgent upper endoscopy tomorrow in [place]. Diagnoses: (D50.0) Anemia, blood loss (primary encounter [...] needed. Chai Encinas MD documented in this encounterScci Hospital [facility]ima06-30-2022 Miscellaneous Notes* Telephone Encounter - Yessenia Mabel - 01/01/2022 10:27 AM EDT 01-02-2022 egd reyes documented in this encounterScci Hospital Lima06-30-2022 History of Present illness Narrative* Chai Encinas [...] likely gallbladder issues. 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 Lua PACEMAKER 10/2019 PART. HYSTERECTOMY W/WO RMVL OVARIES/TUBES 1974 h/o cervical cancer ovaries remain PAST SURGICAL HISTORY OF 1996 Aortic valve repair, Dr. Apodaca PAST SURGICAL HISTORY OF 2001 [address] Beltrán, [facility] PAST SURGICAL HISTORY OF 2015 clipping [...] entered by the nurse and reviewed by nc Nursing Notes: Stacie Mancera LPN 01/01/2022 9:48 [...] her for urgent upper endoscopy tomorrow in [place]. Diagnoses: (D50.0) Anemia, blood loss (primary encounter [...] needed. Chai Encinas MD documented in this encounterScci Hospital Lima06-30-2022 Nurse Note* Stacie FiordalizaGOPI - 01/01/2022 9:46 [...] 2019 Stacie Mancera LPN documented in this encounterScci Hospital Lima06-27-2022 Miscellaneous Notes* Telephone Encounter - M Claudia Le PA-C - 12/29/2021 4:19 PM EDT Thanks for the help! Doreen Le PA-C * Telephone Encounter - Sheree Savage Ma - 12/29/2021 3:57 PM EDT Patient is scheduled for for transfusion of 2 units packed red blood cells at [facility] for 8 am tomorrow. Patient has been notified and will stop by tonight to get type and cross. documented in this encounterScci Hospital Lima06-25-2022 Miscellaneous Notes* Telephone Encounter - Sheree Savage [...] couple of days she will go to [facility] ED. Reason for Disposition [1] [...] since yesterday. Protocols used: WEAKNESS (GENERALIZED) AND [id number] documented in this encounterScci Hospital Lima06-25-2022 Miscellaneous Notes* Telephone Encounter - Radha Pyle RN - 12/27/2021 9:57 AM EDT Triage completed 12/27 for MC symptoms. See triage encounter. Radha Pyle RN documented in this encounterScci Hospital [facility]ima06-23-2022 Miscellaneous Notes* Telephone Encounter - Marleen Schaffer [...] EDT December 25, 2021 Patient Contact Number: [phone] (home) [phone] (cell) Patient last seen within the last year: Yes Reason for Call: Medication Issue/Question: Patient states that she is supposed to decrease medication in preparation of surgery in two weeks, but she is having symptoms and is having difficulty tolorating. Thank you, Deonna Bryant, Admin documented in this encounterScci Hospital [facility]ima06-20-2022 Miscellaneous Notes* Telephone Encounter - Brittany Norton [...] need schedules to follow. documented in this encounterScci Hospital Lima06-13-2022 History of Present illness Narrative* Marisol Cook, [...] 15, 2021 11:04 AM documented in this encounterScci Hospital Lima06-13-2022 History of Present illness Narrative* Doreen Le [...] bilateral inflow resting waveforms. 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 Lua PACEMAKER 10/2019 PART. HYSTERECTOMY W/WO RMVL OVARIES/TUBES 1974 h/o cervical cancer ovaries remain PAST SURGICAL HISTORY OF 1996 Aortic valve repair, Dr. Apodaca PAST SURGICAL HISTORY OF 2001 [address] Beltrán, [facility] PAST SURGICAL HISTORY OF 2016 clipping [...] LEFT Doreen Le PA-C documented in this encounterScci Hospital [facility]ima06-02-2022 Miscellaneous Notes* Telephone Encounter - Marleen Schaffer [...] EDT December 03, 2021 Patient Contact Number: [phone] (home) [phone] (cell) Patient last seen within the last [...] you, Deonna Bryant, Admin documented in this encounterScci Hospital [facility]ima05-26-2022 History of Present illness Narrative* Dagmar Thomas - 11/27/2021 12:36 PM EDT set documented in this encounterScci Hospital [facility]ima05-25-2022 History of Present illness Narrative* Na Ramirez 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 Lua PACEMAKER 10/2019 PART. HYSTERECTOMY W/WO RMVL OVARIES/TUBES 1973 h/o cervical cancer ovaries remain PAST SURGICAL HISTORY OF 1996 Aortic valve repair, Dr. Apodaca PAST SURGICAL HISTORY OF 2001 [address] Beltrán, [facility] PAST SURGICAL HISTORY OF 2015 clipping [...] ambulation Time spent: 45 documented in this encounterScci Hospital Lima04-20-2022 Miscellaneous Notes* Telephone Encounter - Marycruz Olguin [...] encounter? yes Marycruz Olguin documented in this encounterScci Hospital Lima03-24-2022 Miscellaneous Notes* Telephone Encounter - Sigifredo Monge - 09/25/2021 4:57 PM EDT patient cancelled as requested. patient has cardiac procedures coming up in January. Patient stated she is feeling better at this time. patient will call and reschedule if her symptoms returns. * Telephone Encounter - Marilyn Gracia Pss - 09/24/2021 1:40 PM EDT Patient is out of town and needs to cancel the procedure on 09/29 in [place]. She thought this was cancelled about a month ago when she received a call. She stated she is so sorry. documented in this encounterScci Hospital [facility]ima03-22-2022 Miscellaneous Notes* Telephone Encounter - Inga Pineda [...] procedure. Patient stated understanding. documented in this encounterScci Hospital [facility]ima08-14-2021 History of Past illness Narrative* Problem Noted [...] beds in local hospital, transferred to [facility]. 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 Patient had her eyes examined in [place] this year and was told that she [...] of this encounter (statuses as of 09/23/2021) [facility] History of Past illness Narrative* Problem Noted [...] beds in local hospital, transferred to [facility]. 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 Patient had her eyes examined in [place] this year and was told that she [...] of this encounter (statuses as of 09/26/2021) [facility] History of Past illness Narrative* Problem Noted [...] beds in local hospital, transferred to [facility]. 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 Patient had her eyes examined in [place] this year and was told that she [...] of this encounter (statuses as of 10/22/2021) [facility] History of Past illness Narrative* Problem Noted [...] beds in local hospital, transferred to [facility]. Anemia 10/24/2019 09/12/2021 Last Assessment & Plan: [...] 12/22/2018 Prosthetic aortic valve stenosis 11/19/2016 12/22/2018 detention current use of antiarrhythmic medical therapy 10/20/2016 [...] diarrhea. Patient had her eyes examined in [place] this year and was told that she [...] of this encounter (statuses as of 11/17/2021) [facility] History of Past illness Narrative* Problem Noted [...] beds in local hospital, transferred to [facility]. Anemia 10/24/2019 09/12/2021 Last Assessment & Plan: Assessment & PLAN: See above Renal cell carcinoma 10/24/2019 09/12/2021 Last Assessment & Plan: Currently following with urology (Dr. 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 Patient had her eyes examined in [place] this year and was told that she [...] of this encounter (statuses as of 11/27/2021) [facility] History of Past illness Narrative* Problem Noted [...] beds in local hospital, transferred to [facility]. Anemia 10/24/2019 09/12/2021 Last Assessment & Plan: [...] 12/22/2018 Prosthetic aortic valve stenosis 11/19/2016 12/22/2018 detention current use of antiarrhythmic medical therapy 10/20/2016 [...] diarrhea. Patient had her eyes examined in [place] this year and was told that she [...] of this encounter (statuses as of 11/27/2021) [facility] History of Past illness Narrative* Problem Noted [...] beds in local hospital, transferred to [facility]. Anemia 10/24/2019 09/12/2021 Last Assessment & Plan: [...] 12/22/2018 Prosthetic aortic valve stenosis 11/19/2016 12/22/2018 detention current use of antiarrhythmic medical therapy 10/20/2016 [...] diarrhea. Patient had her eyes examined in [place] this year and was told that she [...] of this encounter (statuses as of 12/04/2021) [facility]21 History of Past illness Narrative* Problem Noted [...] beds in local hospital, transferred to [facility]. 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 Patient had her eyes examined in [place] this year and was told that she [...] of this encounter (statuses as of 12/04/2021) [facility] History of Past illness Narrative* Problem Noted [...] beds in local hospital, transferred to [facility]. 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 Patient had her eyes examined in [place] this year and was told that she [...] of this encounter (statuses as of 12/13/2021) [facility] History of Past illness Narrative* Problem Noted [...] beds in local hospital, transferred to [facility]. 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 Patient had her eyes examined in [place] this year and was told that she [...] of this encounter (statuses as of 12/15/2021) [facility] History of Past illness Narrative* Problem Noted [...] beds in local hospital, transferred to [facility]. Anemia 10/24/2019 09/12/2021 Last Assessment & Plan: [...] 12/22/2018 Prosthetic aortic valve stenosis 11/19/2016 12/22/2018 detention current use of antiarrhythmic medical therapy 10/20/2016 [...] diarrhea. Patient had her eyes examined in [place] this year and was told that she [...] of this encounter (statuses as of 12/25/2021) [facility] History of Past illness Narrative* Problem Noted [...] beds in local hospital, transferred to [facility]. Anemia 10/24/2019 09/12/2021 Last Assessment & Plan: [...] 12/22/2018 Prosthetic aortic valve stenosis 11/19/2016 12/22/2018 detention current use of antiarrhythmic medical therapy 10/20/2016 [...] diarrhea. Patient had her eyes examined in [place] this year and was told that she [...] of this encounter (statuses as of 12/27/2021) [facility] History of Past illness Narrative* Problem Noted [...] beds in local hospital, transferred to [facility]. 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 Patient had her eyes examined in [place] this year and was told that she [...] of this encounter (statuses as of 12/27/2021) [facility] History of Past illness Narrative* Problem Noted [...] beds in local hospital, transferred to [facility]. 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 Patient had her eyes examined in [place] this year and was told that she [...] of this encounter (statuses as of 12/29/2021) [facility] History of Past illness Narrative* Problem Noted [...] beds in local hospital, transferred to [facility]. 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 Patient had her eyes examined in [place] this year and was told that she [...] of this encounter (statuses as of 01/01/2022) [facility] History of Past illness Narrative* Problem Noted [...] beds in local hospital, transferred to [facility]. Anemia 10/24/2019 09/12/2021 Last Assessment & Plan: [...] 12/22/2018 Prosthetic aortic valve stenosis 11/19/2016 12/22/2018 detention current use of antiarrhythmic medical therapy 10/20/2016 [...] diarrhea. Patient had her eyes examined in [place] this year and was told that she [...] of this encounter (statuses as of 01/03/2022) [facility] History of Past illness Narrative* Problem Noted [...] beds in local hospital, transferred to [facility]. 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 Patient had her eyes examined in [place] this year and was told that she [...] of this encounter (statuses as of 01/07/2022) [facility] History of Past illness Narrative* Problem Noted [...] beds in local hospital, transferred to [facility]. Anemia 10/24/2019 09/12/2021 Last Assessment & Plan: [...] 12/22/2018 Prosthetic aortic valve stenosis 11/19/2016 12/22/2018 detention current use of antiarrhythmic medical therapy 10/20/2016 [...] diarrhea. Patient had her eyes examined in [place] this year and was told that she [...] of this encounter (statuses as of 01/09/2022) [place] [id number] History of Past illness Narrative* Problem Noted [...] beds in local hospital, transferred to [facility]. Anemia 10/24/2019 09/12/2021 Last Assessment & Plan: [...] 12/22/2018 Prosthetic aortic valve stenosis 11/19/2016 12/22/2018 detention current use of antiarrhythmic medical therapy 10/20/2016 [...] diarrhea. Patient had her eyes examined in [place] this year and was told that she [...] of this encounter (statuses as of 01/09/2022) [facility] History of Past illness Narrative* Problem Noted [...] beds in local hospital, transferred to [facility]. Anemia 10/24/2019 09/12/2021 Last Assessment & Plan: [...] 12/22/2018 Prosthetic aortic valve stenosis 11/19/2016 12/22/2018 detention current use of antiarrhythmic medical therapy 10/20/2016 [...] diarrhea. Patient had her eyes examined in [place] this year and was told that she [...] of this encounter (statuses as of 01/10/2022) [facility] History of Past illness Narrative* Problem Noted [...] beds in local hospital, transferred to [facility]. 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 Patient had her eyes examined in [place] this year and was told that she [...] of this encounter (statuses as of 01/15/2022) [facility] History of Past illness Narrative* Problem Noted [...] beds in local hospital, transferred to [facility]. Anemia 10/24/2019 09/12/2021 Last Assessment & Plan: [...] 12/22/2018 Prosthetic aortic valve stenosis 11/19/2016 12/22/2018 detention current use of antiarrhythmic medical therapy 10/20/2016 [...] diarrhea. Patient had her eyes examined in [place] this year and was told that she [...] of this encounter (statuses as of 01/16/2022) [facility] History of Past illness Narrative* Problem Noted [...] beds in local hospital, transferred to [facility]. 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 Patient had her eyes examined in [place] this year and was told that she [...] of this encounter (statuses as of 01/20/2022) [facility] History of Past illness Narrative* Problem Noted [...] beds in local hospital, transferred to [facility]. 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 Patient had her eyes examined in [place] this year and was told that she [...] of this encounter (statuses as of 01/21/2022) [facility] History of Past illness Narrative* Problem Noted [...] beds in local hospital, transferred to [facility]. Anemia 10/24/2019 09/12/2021 Last Assessment & Plan: [...] 12/22/2018 Prosthetic aortic valve stenosis 11/19/2016 12/22/2018 detention current use of antiarrhythmic medical therapy 10/20/2016 [...] diarrhea. Patient had her eyes examined in [place] this year and was told that she [...] of this encounter (statuses as of 01/23/2022) [facility] History of Past illness Narrative* Problem Noted [...] beds in local hospital, transferred to [facility]. 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 Patient had her eyes examined in [place] this year and was told that she [...] of this encounter (statuses as of 02/09/2022) [facility] History of Past illness Narrative* Problem Noted [...] beds in local hospital, transferred to [facility]. 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 Patient had her eyes examined in [place] this year and was told that she [...] of this encounter (statuses as of 02/20/2022) [facility] History of Past illness Narrative* Problem Noted [...] beds in local hospital, transferred to [facility]. 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 Patient had her eyes examined in [place] this year and was told that she [...] of this encounter (statuses as of 02/23/2022) [facility] Dianne Stovall [facility] Note Date/Time January 11, 2025 12:3 0pm [facility] Medical Records Department [address] [place] [address] Instructions for Home/Discharge Instructions 01/11/25 1226 MR#: [id number] Acct: [id number] Name: BERTA SANCHES Rep #:[id number] : [...] Hernandez MD [Non-Staff] - Deysi Collazo NP, [employer]IST-C [Primary Care Provider] - Disposition Disposition (needs filled in before D/C Order can be placed): Home, Self Care 01/11/25 1230<Electronically signed by Dianne Stovall DO>Dianne Stovall DO CC: [employer]IST-[employer] Deysi Collazo; Dr. Jeremy Mcgarry MD; Dr. Radha Heller MD ~ Signed [facility] Work Phone: Evaluation note* Diagnosis PAD (peripheral artery disease) ([facility])- Primary Peripheral vascular disease, unspecified Anemia due to chronic illness Anemia of other chronic disease Atrial fibrillation, unspecified type ([facility]) [facility] Diagnosis PAD (peripheral artery disease) (HCC)- Primary Peripheral vascular disease, unspecified PVD (peripheral vascular disease) ([facility]) Peripheral vascular disease, unspecified Atrial fibrillation, unspecified type ([facility]) [facility] Diagnosis Renal mass, right- Primary Unspecified [...] unspecified type (HCC) [facility]* Diagnosis Anemia, unspecified type- Primary Atrial fibrillation, unspecified type (HCC) [facility] Diagnosis Anemia, blood loss- Primary Iron [...] unspecified type (HCC) [facility] Diagnosis Acute blood loss anemia Acute posthemorrhagic anemia Heme + stool Nonspecific abnormal finding in stool contents Epigastric pain Abdominal pain, epigastric Atrial fibrillation, unspecified type (HCC) documented in this encounter [facility] noteNo assessment information availableW[facility] Work Phone: Evaluation note* Diagnosis Heme positive stool- Primary Nonspecific abnormal finding in stool contents Blood loss anemia Iron deficiency anemia secondary to blood loss (chronic) Atrial fibrillation, unspecified type (HCC) documented in this encounter [facility] note* Diagnosis Atrial fibrillation, unspecified type (HCC)- Primary Gastrointestinal hemorrhage, unspecified gastrointestinal hemorrhage type Anemia due to chronic blood loss Iron deficiency anemia secondary to blood loss (chronic) Other fatigue SOB (shortness of breath) Shortness of breath [facility] Diagnosis Atrial fibrillation, unspecified type (HCC)- Primary Presence of Watchman left atrial appendage closure device Herpes zoster without complication Herpes zoster without mention of complication [facility] Diagnosis Paroxysmal atrial fibrillation (HCC)- Primary Atrial fibrillation [facility] Diagnosis Paroxysmal atrial fibrillation (HCC)- Primary Atrial fibrillation Presence of Watchman left atrial appendage closure device [facility] Diagnosis Rectal bleeding- Primary Hemorrhage of rectum and anus Anemia, blood loss Iron deficiency anemia secondary to blood loss (chronic) Diarrhea, unspecified type [facility]* Diagnosis Longstanding persistent atrial fibrillation (HCC)- Primary Presence of Watchman left atrial appendage closure device [facility] Diagnosis Acute combined systolic and diastolic [...] Unspecified essential hypertension [facility] Diagnosis History of prosthetic aortic valve [...] of cerebral infarction [facility] Diagnosis Right renal mass Unspecified disorder of kidney and ureter [facility] Diagnosis Paroxysmal atrial fibrillation (HCC) Atrial fibrillation Presence of Watchman left atrial appendage closure device [facility] Diagnosis Hospital discharge follow-up- Primary Other [...] [facility] (chronic) [facility] 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 Other specified intestinal malabsorption [facility] 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 Neoplasm of uncertain behavior of kidney and ureter Iron 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) Stage 3b chronic kidney disease (HCC) [facility] Iron 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- Primary Iron malabsorption Other specified intestinal malabsorption [facility] Iron 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- Primary Iron malabsorption Other specified intestinal malabsorption [facility] Diagnosis Iron 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- Primary Iron malabsorption Other specified intestinal malabsorption [facility] Primary hypertension Unspecified essential hypertension [facility] Iron 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- Primary Iron malabsorption Other specified intestinal malabsorption [facility] Diagnosis Iron 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- Primary Chronic renal failure, stage 3b (HCC) [facility] Primary hypertension Unspecified essential hypertension [facility] Diagnosis H/O rheumatic heart disease- [...] vascular disease, unspecified [facility] Lung nodule, solitary- Primary Solitary pulmonary nodule [facility] Diagnosis Heme + stool Nonspecific abnormal finding in stool contents Epigastric pain Abdominal pain, epigastric Blood loss anemia Iron deficiency anemia secondary to blood loss (chronic) [facility] History of prosthetic aortic valve [...] and unspecified hyperlipidemia [facility] Diagnosis Primary hypertension Unspecified essential hypertension [facility]* Diagnosis S/P placement of cardiac pacemaker- [...] of insulin (HCC) documented in this encounter [facility] note* Diagnosis Bilateral carotid artery stenosis- Primary Occlusion and stenosis of carotid artery without mention of cerebral infarction Atherosclerosis of minto artery of both lower extremities with intermittent claudication (HCC) Atherosclerosis of minto arteries of the extremities with intermittent claudication 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HCC) Acute vascular insufficiency of intestine Pain in both lower legs 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 Other specified intestinal malabsorption S/P placement of cardiac pacemaker Cardiac pacemaker in situ SSS (sick sinus syndrome) ([facility]) Sinoatrial node dysfunction Chronic combined [...] deficiency anemia type documented in this encounter [facility] note* Diagnosis PVD (peripheral vascular disease) with claudication ([facility])- Primary Peripheral vascular disease, unspecified [facility] Heme + stool Nonspecific abnormal finding in stool contents Epigastric pain Abdominal pain, epigastric Blood loss anemia Iron deficiency anemia secondary to blood loss (chronic) [facility] Diagnosis Lung nodule, solitary Solitary pulmonary nodule [facility] Diagnosis 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 [facility] Diagnosis Closed nondisplaced fracture of fifth metatarsal bone of right foot with routine healing, subsequent encounter- [facility] Diagnosis Influenza-like illness- Primary Influenza with other respiratory manifestations [facility] Diagnosis 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)- Primary Chronic combined systolic and diastolic heart failure Dilated cardiomyopathy (HCC) Other primary cardiomyopathies [facility] Diagnosis SSS (sick sinus syndrome) ([facility])- Primary Sinoatrial node dysfunction Paroxysmal [...] vitamin D deficiency [facility] Borderline anemia- Primary Acute systolic congestive heart failure (HCC) Acute systolic heart failure [facility] Diagnosis Acute systolic CHF (congestive heart [...] osteoarthrosis, lower leg [facility] Diagnosis Acute HFrEF (heart failure with reduced ejection fraction) ([facility])- Primary VHD (valvular heart disease) Endocarditis, valve unspecified, unspecified cause Nonrheumatic tricuspid valve regurgitation Tricuspid valve disorders, specified as nonrheumatic Nonrheumatic mitral valve regurgitation Persistent atrial fibrillation (HCC) Atrial fibrillation Pacemaker Cardiac pacemaker in situ [facility] Diagnosis Venous insufficiency- Primary Unspecified venous (peripheral) insufficiency [facility] Diagnosis Venous insufficiency- Primary Unspecified venous (peripheral) insufficiency [facility]* Diagnosis Iron 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- Primary Iron malabsorption Other specified intestinal malabsorption [facility]* Diagnosis Acute systolic CHF (congestive heart failure) ([facility])- Primary Acute systolic heart failure Hyponatremia Hyposmolality and/or hyponatremia Hypokalemia Hypopotassemia [facility]* Diagnosis Chronic diastolic congestive heart failure (HCC)- Primary Chronic diastolic heart failure Primary hypertension Unspecified essential hypertension SSS (sick sinus syndrome) ([facility]) Sinoatrial node dysfunction Longstanding persistent atrial fibrillation ([facility]) Acute systolic CHF (congestive heart failure) ([facility]) Acute systolic heart failure [facility] Diagnosis URI, acute- Primary Acute upper respiratory infections of unspecified site [facility] Diagnosis History of prosthetic aortic valve replacement- Primary Heart valve replaced by other means H/O rheumatic heart disease Personal history of other diseases of circulatory system Longstanding persistent atrial fibrillation ([facility]) Ascending aorta dilatation ([facility]) Thoracic aortic ectasia Dilated cardiomyopathy ([facility]) Other primary cardiomyopathies Aortic prosthetic valve regurgitation, subsequent encounter Chronic diastolic (congestive) heart failure (HCC) SSS (sick sinus syndrome) ([facility]) Sinoatrial node dysfunction Primary hypertension Unspecified essential hypertension Hyperlipidemia with target LDL less than 70 Other and unspecified hyperlipidemia S/P placement of cardiac pacemaker Cardiac pacemaker in situ PAD (peripheral artery disease) ([facility]) Peripheral vascular disease, unspecified Acute systolic CHF (congestive heart failure) (HCC) Acute systolic heart failure [facility] Diagnosis Chronic diastolic congestive heart failure (HCC)- Primary Chronic diastolic heart failure [facility] Diagnosis Chronic kidney disease, unspecified CKD stage- Primary [facility]* Diagnosis SOB (shortness of breath)- Primary [...] Coronary atherosclerosis of unspecified type of vessel, minto or graft SUMMARY Hyperlipidemia LDL goal < [...] uncontrolled Acute systolic CHF (congestive heart failure) ([facility]) Acute systolic heart failure [facility] Diagnosis SOB (shortness of breath)- Primary [...] Coronary atherosclerosis of unspecified type of vessel, minto or graft SUMMARY Hyperlipidemia LDL goal < [...] healing, subsequent encounter [facility] Diagnosis SOB (shortness of breath)- Primary [...] Coronary atherosclerosis of unspecified type of vessel, minto or graft SUMMARY Hyperlipidemia LDL goal < [...] right middle finger [facility] Diagnosis SOB (shortness of breath)- Primary [...] Coronary atherosclerosis of unspecified type of vessel, minto or graft SUMMARY Hyperlipidemia LDL goal < [...] of left side [facility]* Diagnosis SOB (shortness of breath)- Primary [...] Coronary atherosclerosis of unspecified type of vessel, minto or graft SUMMARY Hyperlipidemia LDL goal < [...] atrial fibrillation (HCC) [facility]* Diagnosis SOB (shortness of breath)- Primary [...] Coronary atherosclerosis of unspecified type of vessel, minto or graft SUMMARY Hyperlipidemia LDL goal < [...] Other follow-up examination documented in this encounter [facility] note* Diagnosis SOB (shortness of [...] Coronary atherosclerosis of unspecified type of vessel, minto or graft SUMMARY Hyperlipidemia LDL goal < [...] type, unspecified whether acute cor pulmonale present ([facility]) Gastrointestinal hemorrhage, unspecified gastrointestinal hemorrhage [...] Unspecified essential hypertension SSS (sick sinus syndrome) ([facility]) Sinoatrial node dysfunction Longstanding persistent atrial fibrillation ([facility]) Stage 3b chronic kidney disease ([facility]) [facility]* Diagnosis SOB (shortness of breath)- Primary [...] Coronary atherosclerosis of unspecified type of vessel, minto or graft SUMMARY Hyperlipidemia LDL goal < [...] of cerebral infarction [facility]* Diagnosis SOB (shortness of breath)- Primary [...] Coronary atherosclerosis of unspecified type of vessel, minto or graft SUMMARY Hyperlipidemia LDL goal < [...] diastolic heart failure [facility]* Diagnosis SOB (shortness of breath)- Primary [...] Coronary atherosclerosis of unspecified type of vessel, minto or graft SUMMARY Hyperlipidemia LDL goal < [...] insufficiency of intestine [facility]* Diagnosis SOB (shortness of breath)- Primary [...] Coronary atherosclerosis of unspecified type of vessel, minto or graft SUMMARY Hyperlipidemia LDL goal < [...] Sinoatrial node dysfunction Longstanding persistent atrial fibrillation ([facility]) [facility]* Diagnosis SOB (shortness of breath)- Primary [...] Coronary atherosclerosis of unspecified type of vessel, minto or graft SUMMARY Hyperlipidemia LDL goal < [...] insufficiency of intestine [facility] Diagnosis SOB (shortness of breath)- Primary [...] Coronary atherosclerosis of unspecified type of vessel, minto or graft SUMMARY Hyperlipidemia LDL goal < [...] and unspecified hyperlipidemia [facility]* Diagnosis Onset Date Resolution Status Admit Date CHF exacerbation acute January 4:29pm [facility] Work Phone: History and physical note Author Radha Heller [facility] Note Date/Time January 07, 2025 4:35p m [facility] System Medical Records Department [address] [place] [address] H&P Exam - Hospitalist 01/07/25 1629 MR#: [id number] Acct: [id number] Name: BERTA SANCHES Rep #:[id number] : [...] post Watchman device, congestive heart failure presented [facility] ED 01/07/2025 with several weeks of shortness of breath and bilateral lower extremity edema. Reportedly in September 2023 she had surgery in [place] for some kind of intra-abdominal artery blockageand was placed on Plavix and aspirin and was having difficulties with her heart failure at that time. She came home at the end of October and has been taking herLasix 40 twice daily and spironolactone 12.5 mg twice daily without improvement. She recently followed with her [facility] patient support representative with increase in her Lasix by mouth [...] bowel or bladder changes. ROS otherwise negative [facility] Medical History Anxiety Brain aneurysm Bronchospasm [...] % (Auto) 59.8, Lymph % (Auto) 24.2, Addison % (Auto) 12.9 H, Eos % (Auto) [...] Sens 71 H*, [place] [address] H 01/07/25 14:54: Troponin T Hi Sens 2 Hr 68 H* Imaging Radiology Impression Chest X-Ray 01/07/25 13:19 IMPRESSION: Findings consistent with mild congestive heart failure. Reading Location: [id number] Assessment & Plan Assessment/Plan (1) CHF exacerbation: [...] Heller MD Charges/Coding Visit Charges Inpatient E&M: 41384 Init Hosp L2 01/07/25 1635 <Electronically signed by Radha Heller MD> Cosigner Signature (if applicable): CC: JARROD Collazo; Dr. Radha Heller MD~ Signed [facility] Work Phone: Hospital Discharge instructionsAdditional Instructions Date [facility]: [facility] Work Phone: Hospital Discharge instructionsAdditional Instructions Follow-up with your doctor next week. Continue to use your bumetanide and your metolazone for your fluid retention. Follow-up with Dr. Flores early next week to ensure you are improving. Return to the emergency department if you are feeling worse.[facility] Work Phone: Hospital Discharge instructionsAdditional Instructions Please [...] the ER should you have any further [facility] Work Phone: Progress note Author Ric Noriega [facility] Note Date/Time April 24, 2025 4 :45pm [facility] [address] [place] [address] OFFICE VISIT Date of Service: 04/24/25 1525 MR#: [id number] Acct: [id number] Name: BERTA SANCHES SCOTTIE Rep #: [id number] : 1945 From: Ric champion MD Age/Sex: 79/F Location: [facility] Status: Signed HPI Subjective Date of Service [...] right leg. In 2024 and while in [place] she was hospitalized underwent a colonoscopy to herknowledge did not show any bleeding lesions, she is unaware whether she had an EGD or not during that hospital stay but she was placed on PPI therapy since. 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 Ric Noriega MD Guillotine Operator, [facility] Divisions of Medical Oncology & Hematology Department of Internal Medicine [facility] [place] [address] This note was generated using a voice [...] applicable) CC: Dr. Vincent Flores MD ~ [facility] Work Phone: Re[facility]ev[facility] for referral (narrative)* Diagnostic Procedure Only (Routine) - Closed Specialty Diagnoses / Procedures Referred By Leilani ng Referred To Contact XR IMAGING Diagnoses Ischial bursitis of left side Procedures XR HIP GENERAL 3V PELV/AP/LAT LEFT RADEX HIP UNILATERAL WITH PELVIS 2-3 VIEWS Doreen Le PA-C [address] [place] [address] X[facility] Referral ID Status Reason Start Date Expiration Date V isits Requested Visits Authorized [id number] Closed Auto-Generate d Referral 12/15/2021 01/14/2023 1 1 [facility] for referral (narrative)* Outpatient Procedure (Routine) - Pending Review Specialty Diagnoses / Procedures Referred By Leilani ng Referred To Contact [facility] Diagnoses Acute blood loss anemia Heme + stool Epigastric pain Procedures EGD DIAGNOSTIC ESOPHAGOGASTRODUODENOSC OPY TRANSORAL DIAGNOSTIC REFERRAL TO [facility] FINANCIAL COUNSELOR Chai Encinas MD [address] [place] [address] [facility] [address] [place] [address] Referral ID Status Reason Start Date Expiration Date Visits Requested Visits Authorized [id number] Pending Review Auto-Generated Referral 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 OON Notification Letter Patient Cleared - Admin/Launch Leader/D irector advise to proceed 2 04/01/2022 1 1 [facility] for referral (narrative)* Outpatient Procedure (Routine) - Closed Specialty Diagnoses / Procedures Referred By Leilani ng Referred To Contact Diagnoses Acute blood loss anemia Heme + stool Epigastric pain Procedures EGD DIAGNOSTIC ESOPHAGOGASTRODUODENOSCOPY TRANSORAL DIAGNOSTIC REFERRAL TO [facility] FINANCIAL COUNSELOR Chai Encinas MD [address] [address] [facility] [address] [place] [address] Referral ID Status Reason Start Date Expiration Date Visits Requested Visits Authorized [id number] Closed Auto-Generated Referral 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 OON Notification Letter Patient Cleared - Admin/Launch Leader/D irector advise to proceed 01/01/2022 07/04/2022 1 1 [facility] for referral (narrative)* Outpatient Procedure (Routine) - Pending Review Specialty Diagnoses / Procedures Referred By Leilani ng Referred To Contact [facility] [place] Diagnoses Paroxysmal atrial fibrillation (HCC) Procedures ECHO TRANSESOPHAGEAL ECHO TRANSESOPHAG R-T 2D W/PRB IMG ACQUISJ I&R Candi Beauchamp APRN.TWISTHAND [address] [place] [address] [facility] [place] [address] [place] [address] Referral ID Status Reason Start Date Expiration Date Visits Requested Visits Authorized [id number] Pending Review Auto-Generat ed Referral 01/21/2022 01/21/2023 1 1 * Outpatient Procedure (Routine) - Pending Review Specialty Diagnoses / Procedures Referred By Leilani ng Referred To Contact [facility] [place] Diagnoses Paroxysmal atrial fibrillation (HCC) Procedures ECG COMPLETE ECG ROUTINE ECG W/LEAST 12 LDS W/I&R Candi Beauchamp APRN.TWISTHAND [address], [address] [place] [address] [facility] [place] [address] [place] [address] Referral ID Status Reason Start Date Expiration Date Visits Requested Visits Authorized [id number] Pending Review Auto-Generat ed Referral 01/21/2022 01/21/2023 1 1 * Outpatient Procedure (Routine) - Pending Review Specialty Diagnoses / Procedures Referred By Contac t Referred To Contact [facility] [place] Diagnoses Paroxysmal atrial fibrillation (HCC) Procedures ECHO TRANSESOPHAGEAL ECHO TRANSESOPHAG R-T 2D W/PRB IMG VIOLAISGlenna I&R Candi Beauchamp APRN.TWISTHAND [address], [address] [place] [id number] [facility] [place] [address] [place] [address] Referral ID Status Reason Start Date Expiration Date Visits Requested Visits Authorized [id number] Pending Review Auto-Generat ed Referral 01/21/2022 01/21/2023 1 1 [facility] for referral (narrative)* Outpatient Procedure (Routine) - Pending Review Specialty Diagnoses / Procedures Referred By Contac t Referred To Contact [facility] Diagnoses Paroxysmal atrial fibrillation (HCC) Presence of Watchman left atrial appendage closure device Procedures ECHO TRANSESOPHAGEAL ECHO TRANSESOPHAG R-T 2D W/PRB IMG LINUS I&R Candi Beauchamp APRN.TWISTHAND [address], [address] [address] [facility] [place] [address] [place] [address] Referral ID Status Reason Start Date Expiration Date Visits Requested Visits Authorized [id number] Pending Review Auto-Generat ed Referral 02/09/2022 02/09/2023 1 1 * Outpatient Procedure (Routine) - Pending Review Specialty Diagnoses / Procedures Referred By Contac t Referred To Contact [facility] [place] Diagnoses Paroxysmal atrial fibrillation (HCC) Presence of Watchman left atrial appendage closure device Procedures ECG COMPLETE ECG ROUTINE ECG W/LEAST 12 LDS W/I&R Candi Beauchamp APRN.CNP [address] [place] [id number] [facility] [place] [address] [place] [address] Referral ID Status Reason Start Date Expiration Date Visits Requested Visits Authorized [id number] Pending Review Auto-Generat ed Referral 02/09/2022 02/09/2023 1 1 * Outpatient Procedure (Routine) - Pending Review Specialty Diagnoses / Procedures Referred By Contac t Referred To Contact [facility] Diagnoses Paroxysmal atrial fibrillation (HCC) Presence of Watchman left atrial appendage closure device Procedures ECHO TRANSESOPHAGEAL ECHO TRANSESOPHAG R-T 2D W/PRB IMG ACQUISGlenna I&R Candi Beauchamp APRN.TWISTHAND [address] [facility] [address] [place] [id number] [place] [address] [address] [place] [id number] Referral ID Status Reason Start Date Expiration Date Visits Requested Visits Authorized [id number] Pending Review Auto-Generat ed Referral 02/09/2022 02/09/2023 1 1 [facility] for referral (narrative)* Outpatient Procedure (Routine) - Pending Review Specialty Diagnoses / Procedures Referred By Contac t Referred To Contact [facility] [place] Diagnoses Longstanding persistent atrial fibrillation (HCC) Presence of Watchman left atrial appendage closure device Procedures ECHO TRANSESOPHAGEAL ECHO TRANSESOPHAG R-T 2D W/PRB IMG ACQUISJ I&R Radha Torres APRN.TWISTHAND [address] [place] [id number] [address] Referral ID Status Reason Start Date Expiration Date Visits Requested Visits Authorized [id number] Pending Review Auto-Generat ed Referral 03/04/2022 03/04/2023 1 1 [facility] for referral (narrative)* Outpatient Procedure (Routine) - Authorized Specialty Diagnoses / Procedures Referred By Contac t Referred To Contact 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) Procedures ECG COMPLETE ECG ROUTINE ECG W/LEAST 12 LDS W/I&R Doreen Le PA-C [address] [place] [address] [address] Referral ID Status Reason Start Date Expiration Date Visits Requested Visits Authorized [id number] Authorized Auto-Generat ed Referral 03/19/2022 03/19/2023 1 1 [facility] for referral (narrative)* Diagnostic Procedure Only (Routine) - Authorized Specialty Diagnoses / Procedures [facility] To [facility] Diagnoses Neoplasm of uncertain behavior of right kidney Procedures US KIDNEY/BLADDER US RETROPERITONEAL REAL TIME W/IMAGE COMPLETE Brayan Chicas MD [address] [place] [address] [facility] Referral ID Status Reason Start Date Expiration Date Visits Requested Visits Authorized [id number] Authorized Auto-Generat ed Referral 09/02/2022 05/09/2023 1 1 [facility] for referral (narrative)* Outpatient Procedure (Routine) - Authorized Specialty Diagnoses / Procedures Referred By Contac t Referred To Contact [facility] [place] Diagnoses History of prosthetic aortic valve replacement H/O rheumatic heart disease Procedures ECHO ECHO TTHRC R-T 2D W/WOM-MODE COMPL SPEC&COLR D Carla Burdick MD [address] [place] [address] [facility] [address] [address] Referral ID Status Reason Start Date Expiration Date Visits Requested Visits Authorized [id number] Authorized Auto-Generat ed Referral 03/05/2023 09/28/2023 1 1 [facility] for referral (narrative)* Outpatient Procedure (Routine) - Pending Review Specialty Diagnoses / Procedures Referred By Contac t Referred To Contact [facility] Diagnoses 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HCC) Pain in both lower legs Atherosclerosis of minto artery of both lower extremities with intermittent claudication (HCC) Procedures PVR LEG [facility] NON-INVASIVE PHYSIOLOGIC STUDY EXTREMITY 3 LEVLS Doreen Le PA-C [address] [place] [address] [facility] [address] [address] Referral ID Status Reason Start Date Expiration Date Visits Requested Visits Authorized [id number] Pending Review Auto-Generat ed Referral 01/07/2023 01/07/2024 1 1 * Outpatient Procedure (Routine) - Pending Review Specialty Diagnoses / Procedures Referred By Contac t Referred To Contact [facility] Diagnoses 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HCC) Pain in both lower legs Atherosclerosis of minto artery of both lower extremities with intermittent claudication (HCC) Procedures PVR ANK PRESS [facility] NON-INVAS PHYSIOLOGIC STD EXTREMITY ART 2 LEVEL Doreen Le PA-C [address] [place] [address] [facility] [address] [address] Referral ID Status Reason Start Date Expiration Date Visits Requested Visits Authorized [id number] Pending Review Auto-Generat ed Referral 01/07/2023 01/07/2024 1 1 * Outpatient Procedure (Routine) - Authorized Specialty Diagnoses / Procedures [facility] Referred To Contact [facility] [place] Diagnoses Bilateral carotid artery stenosis Procedures US CAROTID ARTERIES [facility] DUPLEX SCAN EXTRACRANIAL ART COMPL BI STUDY Doreen Le PA-C [address] [place] [address] [address] Referral ID Status Reason Start Date Expiration Date Visits Requested Visits Authorized [id number] Authorized Auto-Generat ed Referral 01/07/2023 01/07/2024 1 1 [facility] for referral (narrative)* Diagnostic Procedure Only (Routine) - Closed Specialty Diagnoses / Procedures [facility] Referred To Contact [facility] IMAG[facility] Diagnoses Neoplasm of uncertain behavior of right kidney Procedures US KIDNEY/BLADDER US RETROPERITONEAL REAL TIME W/IMAGE COMPLETE Brayan Cihcas MD [address] [place] [address] [place] [address] Referral ID Status Reason Start Date Expiration Date V isits Requested Visits Authorized [id number] Closed Auto-Generate d Referral 09/02/2022 05/09/2023 1 1 [facility] for referral (narrative)* Outpatient Procedure (Routine) - Authorized Specialty Diagnoses / Procedures [facility] Referred To Contact [facility] [place] Diagnoses Acute systolic CHF (congestive heart failure) (HCC) Procedures ECHO ECHO TTHRC R-T 2D W/WOM-MODE COMPL SPEC&COLR D Doreen Le PA-C [address] [place] [address] [facility] [address] [address] Referral ID Status Reason Start Date Expiration Date Visits Requested Visits Authorized [id number] Authorized Auto-Generat ed Referral 10/18/2023 10/17/2024 1 1 * Outpatient Procedure (Routine) - Pending Review Specialty Diagnoses / Procedures Referred By Contac t Referred To Contact [facility] [place] Diagnoses Acute systolic CHF (congestive heart failure) (HCC) Procedures ECG COMPLETE ECG ROUTINE ECG W/LEAST 12 LDS W/I&R Doreen Le PA-C [address] [place] [address] [facility] [place] [address] [place] [address] Referral ID Status Reason Start Date Expiration Date Visits Requested Visits Authorized [id number] Pending Review Auto-Generat ed Referral 10/18/2023 10/17/2024 1 1 [facility] for referral (narrative)* Outpatient Procedure (Routine) - Closed Specialty Diagnoses / Procedures Referred By Contac t Referred To Contact [facility] [place] Diagnoses Venous insufficiency Procedures US LEG VEIN DVT [facility] DUP-SCAN XTR VEINS COMPLETE BILATERAL STUDY Lars Silva DO [address] [place] [address] [address] Referral ID Status Reason Start Date Expiration Date V isits Requested Visits Authorized [id number] Closed Auto-Generate d Referral 10/14/2023 10/13/2024 1 1 [facility] for referral (narrative)* Diagnostic Procedure Only (Routine) - Closed Specialty Diagnoses / Procedures Referred By Contac t Referred To Contact XR IMAGING Diagnoses Closed nondisplaced fracture of fifth metatarsal bone of right foot with routine healing, subsequent encounter Procedures XR FOOT GENERAL 3V AP/LAT/OBL RIGHT RADEX FOOT COMPLETE MINIMUM 3 VIEWS Doreen Le PA-C [address] [place] [address] [place] [address] Referral ID Status Reason Start Date Expiration Date V isits Requested Visits Authorized [id number] Closed Auto-Generate d Referral 06/01/2023 06/30/2024 1 1 [facility] for referral (narrative)* Diagnostic Procedure Only (Routine) - Closed Specialty Diagnoses / Procedures Referred By Leilani t Referred To Contact XR IMAGING Diagnoses Pain of right middle finger Procedures XR DIGIT GENERAL 3V FRONTAL/LAT/OBL RIGHT RADEX FINGR MINIMUM 2 VIEWS Doreen Le PA-C [address] [place] [address] [place] [address] Referral ID Status Reason Start Date Expiration Date V isits Requested Visits Authorized [id number] Closed Auto-Generate d Referral 04/12/2023 05/11/2024 1 1 [facility] for referral (narrative)* Diagnostic Procedure Only (Routine) - Closed Specialty Diagnoses / Procedures Referred By Leilani ng Referred To Contact XR IMAGING Diagnoses Ischial bursitis of left side Procedures XR HIP GENERAL 3V PELV/AP/LAT LEFT RADEX HIP UNILATERAL WITH PELVIS 2-3 VIEWS Doreen Le PA-C [address] [place] [address] [place] [address] Referral ID Status Reason Start Date Expiration Date V isits Requested Visits Authorized [id number] Closed Auto-Generate d Referral 12/15/2021 01/14/2023 1 1 [facility] for referral (narrative)No reason for referral information [facility] Work Phone: Rezuwr for visit Narrative* Outpatient Procedure (Routine) - Closed Specialty Diagnoses / Procedures Referred By Leilani t Referred To Contact Diagnoses Acute blood loss anemia Heme + stool Epigastric pain Procedures EGD DIAGNOSTIC ESOPHAGOGASTRODUODENOSCOPY TRANSORAL DIAGNOSTIC REFERRAL TO [facility] FINANCIAL COUNSELOR Chai Encinas MD [address] [place] [address] [facility] [address] [place] [address] Referral ID Status Reason Start Date Expiration Date Visits Requested Visits Authorized [id number] Closed Auto-Generated Referral 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 OON Notification Letter Patient Cleared - Admin/Launch Leader/D irector advise to proceed 01/01/2022 07/04/2022 1 1 [facility] for visit Narrative* Diagnostic Procedure Only (Routine) - Closed Specialty Diagnoses / Procedures Referred By Contac t Referred To Contact Laboratory Medicine / LAB COVID TESTING LL Lot Diagnoses Paroxysmal atrial fibrillation PRE-PROCEDURE & PRE-OPERATIVE COVID Paroxysmal atrial fibrillation (HCC) [I48.0] Procedures COVID19 LAB COVID Chandler Swan MD [address] [place] [address] [place] [address] [id number] [place] [address] Referral ID Status Reason Start Date Expiration Date Visits Re quested Visits Authorized [id number] Closed 01/09/2022 07/04/2022 1 1 [facility] for visit Narrative* Diagnostic Procedure Only (Routine) - Closed Specialty Diagnoses / Procedures Referred By Contac t Referred To Contact [facility] Diagnoses Paroxysmal atrial fibrillation (HCC) Presence of Watchman left atrial appendage closure device Procedures ECHO TRANSESOPHAGEAL ECHO TRANSESOPHAG R-T 2D W/PRB IMG LINUS I&R Candi Beauchamp APRN.TWISTHAND [address] [facility] [place] [address] Heart And Vascular [facility] [place] [id number] Referral ID Status Reason Start Date Expiration Date V isits Requested Visits Authorized [id number] Closed Auto-Generate d Referral 02/09/2022 07/04/2022 1 1 [facility] for visit Narrative* Diagnostic Procedure Only (Routine) - Closed Specialty Diagnoses / Procedures Referred By Contac t Referred To Contact XR IMAGING Diagnoses Closed nondisplaced fracture of fifth metatarsal bone of right foot with routine healing, subsequent encounter Procedures XR FOOT GENERAL 3V AP/LAT/OBL RIGHT RADEX FOOT COMPLETE MINIMUM 3 VIEWS Doreen Le PA-C [address] [place] [address] [place] [address] Referral ID Status Reason Start Date Expiration Date V isits Requested Visits Authorized [id number] Closed Auto-Generate d Referral 06/01/2023 06/30/2024 1 1 [facility] for visit Narrative* Diagnostic Procedure Only (Routine) - Closed Specialty Diagnoses / Procedures Referred By Contac t Referred To Contact XR IMAGING Diagnoses Pain of right middle finger Procedures XR DIGIT GENERAL 3V FRONTAL/LAT/OBL RIGHT RADEX FINGR MINIMUM 2 VIEWS Doreen Le PA-C [address] [place] [address] [place] [address] Referral ID Status Reason Start Date Expiration Date V isits Requested Visits Authorized [id number] Closed Auto-Generate d Referral 04/12/2023 05/11/2024 1 1 [facility] for visit Narrative* Diagnostic Procedure Only (Routine) - Closed Specialty Diagnoses / Procedures Referred By Contac t Referred To Contact XR IMAGING Diagnoses Ischial bursitis of left side Procedures XR HIP GENERAL 3V PELV/AP/LAT LEFT RADEX HIP UNILATERAL WITH PELVIS 2-3 VIEWS Doreen Le PA-C [address] [place] [address] [place] [address] Referral ID Status Reason Start Date Expiration Date V isits Requested Visits Authorized [id number] Closed Auto-Generate d Referral 12/15/2021 01/14/2023 1 1 [facility] Summary Purpose Family History Relationship Condition Age [...] Documents on File Type Date Recorded 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 Advance Directive(s) 02/26/2021 11:31 AM Advance Directive(s) 10/02/2020 4:46 PM Advance Directive(s) 10/24/2019 6:40 PM Advance Directive(s) 07/18/2019 8:41 AM Advance Directive(s) 06/21/2019 9:34 AM Advance Directive(s) 05/04/2019 8:22 AM Advance Directive(s) 03/22/2019 7:15 AM Advance Directive(s) 08/31/2015 1:42 PM Advance Directive(s) 08/20/2015 4:21 PM Documents on File Type Date Recorded 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 Advance Directive(s) 02/26/2021 11:31 AM Advance Directive(s) 10/02/2020 4:46 PM Advance Directive(s) 10/24/2019 6:40 PM Advance Directive(s) 07/18/2019 8:41 AM Advance Directive(s) 06/21/2019 9:34 AM Advance Directive(s) 05/04/2019 8:22 AM Advance Directive(s) 03/22/2019 7:15 AM Advance Directive(s) 08/31/2015 1:42 PM Advance Directive(s) 08/20/2015 4:21 PM Documents on File Type Date Recorded 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 Advance Directive(s) 12/23/2021 1:13 PM Advance Directive(s) 02/26/2021 11:31 AM Advance Directive(s) 10/02/2020 4:46 PM Advance Directive(s) 10/24/2019 6:40 PM Advance Directive(s) 07/18/2019 8:41 AM Advance Directive(s) 06/21/2019 9:34 AM Advance Directive(s) 05/04/2019 8:22 AM Advance Directive(s) 03/22/2019 7:15 AM Advance Directive(s) 08/31/2015 1:42 PM Advance Directive(s) 08/20/2015 4:21 PM Documents on File Type Date Recorded 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 Advance Directive(s) 12/23/2021 1:13 PM Advance Directive(s) 02/26/2021 11:31 AM Advance Directive(s) 10/02/2020 4:46 PM Advance Directive(s) 10/24/2019 6:40 PM Advance Directive(s) 07/18/2019 8:41 AM Advance Directive(s) 06/21/2019 9:34 AM Advance Directive(s) 05/04/2019 8:22 AM Advance Directive(s) 03/22/2019 7:15 AM Advance Directive(s) 08/31/2015 1:42 PM Advance Directive(s) 08/20/2015 4:21 PM Documents on File Type Date Recorded 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 Yes January 07, 2025 1:29pm Advance Directives No July 13, 2015 4:56pm Advance Directive Response Recorded Date/ Time Do you have a Healthcare Power of Twisthand? Yes January 07, 2025 5:54pm Advance Directives No July 13, 2015 4:56pm Advance Directive Response Recorded Date/ Time Do you have a Healthcare Power of Twisthand? Yes January 07, 2025 5:54pm Do you have a Healthcare Power of Twisthand? Yes February 16, 2025 12:03pm Name of Medical Power of Twisthand February 16, 2025 12:03pm Advance Directives No July 13, 2015 4:56pm Advance Directive Response Recorded Date/ Time Do you have a Healthcare Power of Twisthand? Yes January 07, 2025 5:54pm Do you have a Healthcare Power of Twisthand? Yes February 16, 2025 12:03pm Name of Medical Power of Twisthand February 16, 2025 12:03pm Do you have a Healthcare Power of Twisthand? Yes March 22, 2025 3:36am Advance Directives No July 13, 2015 4:56pm Advance Directive Response Recorded Date/ Time Do you have a Healthcare Power of Twisthand? Yes February 16, 2025 11:03am Name of Medical Power of Twisthand February 16, 2025 11:03am Do you have a Healthcare Power of Twisthand? Yes March 22, 2025 2:36am Advance Directives [...] atrial fibrillation. Previously seen by me at [facility]. 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 Dr. Washington at [facility] contacted. 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 Moderate mitral regurgitation Mitral valve disorders Status post aortic valve replacement with tissue valve Heart valve replaced by other means Medications Administered Section Inactive Administered Medications - up to 3 most recent administrations Medication Order MAR Action Action Date Dose Rate Site benzocaine 20% 4 [place] (TOPEX) 4 [place], TOPICAL, ONCE, 1 dose, On Wed01/02/22 at [...] EXACERBATION January 11, 2025 12:3 0pm Stroke [facility] 7/6 ([place]) February 05, 2025 8:53am Reason [...] EXACERBATION January 11, 2025 12:3 0pm Stroke [facility] 7/6 ([place]) February 05, 2025 8:53am [...] EXACERBATION January 11, 2025 12:3 0pm Stroke [facility] 7/6 ([place]) February 05, 2025 8:53am Pacer Check Remote February 08, 2025 9:0 0am Establish Pacer Care February 08, 2025 9: 56am Chief Complaint Admit Date CHF EXACERBATION January 07, 2025 4:29p m CHF EXACERBATION January 08, 2025 6:49p m CHF EXACERBATION January 09, 2025 2:34p m CHF EXACERBATION January 10, 2025 6:23p m CHF EXACERBATION January 11, 2025 12:3 0pm Stroke [facility] 7/6 ([place]) February 05, 2025 8:53am [...] EXACERBATION January 11, 2025 12:3 0pm Stroke [facility] 7/6 ([place]) February 05, 2025 8:53am [...] EXACERBATION January 11, 2025 12:3 0pm Stroke [facility] 7/6 ([place]) February 05, 2025 8:53am [...] EXACERBATION January 11, 2025 12:3 0pm Stroke [facility] 7/6 ([place]) February 05, 2025 8:53am [...] 2025 1:46pm Chronic kidney disease, stage 3b [facility] 2024 11:00am Type 2 diabetes mellitus March 15, 2025 11:00am Ulcer of left foot with fat layer expose d March 15, 2025 11:00am Ulcer of right foot with fat layer expos ed March 15, 2025 11:00am Ulcer of right lower extremity with fat layer exposed March 15, 2025 11:00am PAD (peripheral artery disease) [facility] 2024 11:00am PAF (paroxysmal atrial fibrillation) [facility] 2024 11:00am Chief Complaint Admit Date CHF EXACERBATION January 07, 2025 4:29p m CHF EXACERBATION January 08, 2025 6:49p m CHF EXACERBATION January 09, 2025 2:34p m CHF EXACERBATION January 10, 2025 6:23p m CHF EXACERBATION January 11, 2025 12:3 0pm Stroke [facility] 7/6 ([place]) February 05, 2025 8:53am [...] EXACERBATION January 11, 2025 12:3 0pm Stroke [facility] 7/6 ([place]) February 05, 2025 8:53am [...] Chronic kidney disease, stage 3b January 4:29pm MONIQEU (acute kidney injury) January 07, 2025 4:29pm [...] 2025 1:46pm Chronic kidney disease, stage 3b [facility] 2024 11:00am Type 2 diabetes mellitus March 29, 2025 11:00am Ulcer of left foot with fat layer expose d March 29, 2025 11:00am Ulcer of right foot with fat layer expos ed March 29, 2025 11:00am Ulcer of right lower extremity with fat layer exposed March 29, 2025 11:00am PAD (peripheral artery disease) [facility] 2024 11:00am PAF (paroxysmal atrial fibrillation) [facility]2024 11:00am Chronic kidney disease, stage 3b [...] EXACERBATION January 11, 2025 12:3 0pm Stroke [facility] 7/6 ([place]) February 05, 2025 8:53am [...] [email or web address] 11:22am Chief Complaint Admit Date Stroke [facility] 7/ ([place]) February 05, 2025 8:53am Pacer [...] TOMOGRAPHY THORAX W/O CNTRST Doreen Le PA-C [address] [place] [address] Ct Imaging Referral ID Status Reason Start Date Expiration Date Visits Requested Visits Authorized [id number] Pending Review Auto-Generat ed Referral 07/07/2022 05/06/2023 1 1 Specialty Diagnoses / Procedures Referred By Contac t Referred To Contact Hematology Diagnoses Iron deficiency anemia due to chronic blood loss Procedures CONSULT TO HEMATOLOGY OFFICE/OUTPATIENT [facility] 60-74 MINUTES Doreen Le PA-C [address] [place] [address] Referral ID Status Reason Start Date Expiration Date Visits Requested Visits Authorized [id number] Pending Review PCP Requested Referral 04/06/2022 04/06/2023 1 1 Specialty Diagnoses / Procedures Referred By Contac t Referred To Contact MR IMAGING Diagnoses 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 Procedures MRA BRAIN WO/W IVCON MRA; HEAD W & WO CONTRAST Doreen Le PA-C [address] [place] [address] Mr Imaging Referral ID Status Reason Start Date Expiration Date Visits Requested Visits Authorized [id number] Pending Review Auto-Generat ed Referral 07/07/2022 08/06/2023 1 1 Specialty Diagnoses / Procedures Referred By Contac t Referred To Contact Vascular Surgery Diagnoses PVD (peripheral vascular disease) with claudication (HCC) Procedures CONSULT TO VASCULAR SURGERY OFFICE/OUTPATIENT [facility] 60-74 MINUTES Doreen Le PA-C [address] [place] [address] Referral ID Status Reason Start Date Expiration Date Visits Requested Visits Authorized [id number] Pending Review PCP Requested Referral 01/28/2023 01/28/2024 1 1 Specialty Diagnoses / Procedures Referred By Contac t Referred To Contact CT IMAGING Diagnoses Lung nodule, solitary Procedures CT CHEST WO IVCON DIAGNOSTIC COMPUTED TOMOGRAPHY THORAX W/O CNTRST Droeen Le PA-C [address] [place] [address] [place] [address] Referral ID Status Reason Start Date Expiration Date V isits Requested Visits Authorized [id number] Closed Auto-Generate d Referral 07/07/2022 05/06/2023 1 1 Specialty Diagnoses / Procedures Referred By Contac t Referred To Contact Hematology Diagnoses 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 Procedures CONSULT TO HEMATOLOGY OFFICE/OUTPATIENT [facility] 60 MINUTES Doreen Le PA-C [address] [place] [address] Referral ID Status Reason Start Date Expiration Date Visits Requested Visits Authorized [id number] Authorized PCP Requested Referral 11/15/2023 11/14/2024 1 1 Additional Source Comments INFORMATION SOURCE (unrecogn ized section and content) DATE CREATED AUTHOR 12/22/2017 [facility] DATE CREATED AUTHOR AUTHOR'S ORGANIZ ATION 03/09/2019 [facility] DATE CREATED AUTHOR AUTHOR'S ORGANIZ ATION 02/21/2021 [facility] DATE CREATED AUTHOR AUTHOR'S ORGANIZ ATION 11/09/2023 [facility] DATE CREATED AUTHOR AUTHOR'S ORGANIZ ATION 02/09/2024 [facility] DATE CREATED AUTHOR AUTHOR'S ORGANIZ ATION 12/27/2024 [facility] DATE CREATED AUTHOR AUTHOR'S ORGANIZ ATION 01/02/2025 [facility] DATE CREATED AUTHOR AUTHOR'S ORGANIZ ATION 05/16/2025 [facility] Reason for Visit (unrecogniz ed section and content) Reason Comments Non-Chemotherapy Treatment Specialty Diagnoses / Procedures Referred By Contac t Referred To Contact Diagnoses 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 Procedures IRON SUCROSE INJECTION PER 1 MG Ralph Mujica DO [address] [place] [address] [facility] [address] [place] [address] Referral ID Status Reason Start Date Expiration Date V isits Requested Visits Authorized [id number] Authorized 04/07/2022 07/04/2022 99 99 Reason Comments Follow Up Specialty Diagnoses / Procedures Referred By Contac t Referred To Contact Cardiology / CARD ADMIN [facility] Diagnoses Follow-up examination 6 month follow up Procedures OFFICE/OUTPATIENT ESTABLISHED [facility] 30-39 MIN EST PATIENT Carla Burdick MD [address] [place] [address] Carla Burdick MD [address] [place] [address] Referral ID Status Reason Start Date Expiration Date Visits Re quested Visits Authorized [id number] Closed 03/30/2022 07/04/2022 1 1 Reason Comments [...] MINUTES NEW DDI PATIENT Doreen Le PASammy [address] [place] [address] Chai Encinas MD [address] [place] [address] Referral ID Status Reason Start Date Expiration Date V isits Requested Visits Authorized [id number] 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 [...] Procedures 4C EST Self, Doreen Jackson PACarolineC [address] [place] [address] Referral ID Status Reason Start Date Expiration Date Visits Re quested Visits Authorized [id number] Closed 01/16/2022 07/04/2022 1 1 Reason Onset Date Comments Refill Request 01/19/2022 Reason Comments Patient Question ORDER FOR ABDIEL AND EC G Reason Comments Diarrhea A few weeks Specialty Diagnoses / Procedures Referred By Leilani t Referred To Contact Family Practice / FAMILY MEDICINE Diagnoses Chronic diarrhea Procedures MYC OFFICE VISIT Self, Doreen Jackson PA-C [address] [place] [address] Referral ID Status Reason Start Date Expiration Date Visits Re quested Visits Authorized [id number] Closed 02/20/2022 07/04/2022 1 1 Reason Comments Procedure Follow Up EGD completed on 01/02 Reason Onset Date Comments Transition Of Care 02/25/2022 [facility] D[facility] 02/24/2023 Reason Comments Reminder Call Transesophageal Echo 03/03/22 Specialty Diagnoses / Procedures Referred By Contact Referred To Contact Cardiology / CARDIOVASCULAR MEDICINE Diagnoses Paroxysmal atrial fibrillation Presence of Watchman left atrial appendage closure device Per [facility] Procedures REFERRAL TO [facility] FINANCIAL COUNSELOR EST CLINICIAN Chandler Swan MD [address] [place] [address] Radha Torres APRN.CNP [address] [place] [id number] Referral ID Status Reason Start Date Expiration Date Visits Requested Visits Authorized [id number] 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 [...] MYC OFFICE VISIT Self Doreen Le PA-C [address] [place] [address] Referral ID Status Reason Start Date Expiration Date Visits Re quested Visits Authorized [id number] Closed 03/03/2022 07/04/2022 1 1 Reason Onset Date Comments Transition Of Care 03/20/2022 Tcm readmissi on Reason Onset Date Comments Appointment 03/21/2022 Reason Comments 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 Reason Comments Hospital [...] Reason Comments Information Reason Comments Research IRB [id number] TRIM-AF Reason Onset Date Comments Refill Request [...] THORAX W/O CNTRST Doreen Le PA-C [address] [place] [address] [place] [address] Referral ID Status Reason Start Date Expiration Date V isits Requested Visits Authorized [id number] Closed Auto-Generate d Referral 07/07/2022 05/06/2023 1 1 Reason Comments Radiology US Specialty Diagnoses / Procedures Referred By Contac t Referred To Contact US IMAGING Diagnoses Neoplasm of uncertain behavior of right kidney Procedures US KIDNEY/BLADDER US RETROPERITONEAL REAL TIME W/IMAGE COMPLETE Brayan Chicas MD [address] [place] [address] [place] [address] Referral ID Status Reason Start Date Expiration Date V isits Requested Visits Authorized [id number] Closed Auto-Generate d Referral 09/02/2022 05/09/2023 1 1 Reason Comments Cough Chest congestion x l ast night Reason Comments Patient Update Reason Comments Leg Edema Reason Comments Results Orders Reason Comments Follow Up 6 month Reason Comments Established Patient Reason Comments Initial Consult HEART FAILURE [address] Reason Comments Transition Of Care Reason Onset Date Comments ACM CECY RN 11/16/2023 E.D. Utilizat ion Review per Payer Request. Reason Comments Patient Question Reason Comments Hospital Follow Up [facility] follow up dc'd 11/12/23 dx: CHF Reason [...] Up hospital follow up- CHF in [facility] for 23 days, discharged October 28 Reason [...] or prosecute any alcohol or drug abuse patient.[facility] the event this information is protected by the Federal Confidentiality of Alcohol and Drug Abuse Patient Records regulations: The Federal rules restrict any use of the information to criminally investigate or prosecute any alcohol or drug abuse patient.[facility] the event this information is protected by the Federal Confidentiality of Alcohol and Drug Abuse Patient Records regulations: The Federal rules restrict any use of the information to criminally investigate or prosecute any alcohol or drug abuse patient.[facility] the event this information is protected by the Federal Confidentiality of Alcohol and Drug Abuse Patient Records regulations: The Federal rules restrict any use of the information to criminally investigate or prosecute any alcohol or drug abuse patient.[facility] the event this information is protected by the Federal Confidentiality of Alcohol and Drug Abuse Patient Records regulations: The Federal rules restrict any use of the information to criminally investigate or prosecute any alcohol or drug abuse patient.[facility] the event this information is protected by the Federal Confidentiality of Alcohol and Drug Abuse Patient Records regulations: The Federal rules restrict any use of the information to criminally investigate or prosecute any alcohol or drug abuse patient.[facility] the event this information is protected by the Federal Confidentiality of Alcohol and Drug Abuse Patient Records regulations: The Federal rules restrict any use of the information to criminally investigate or prosecute any alcohol or drug abuse patient.[facility] the event this information is protected by the Federal Confidentiality of Alcohol and Drug Abuse Patient Records regulations: The Federal rules restrict any use of the information to criminally investigate or prosecute any alcohol or drug abuse patient.[facility] the event this information is protected by the Federal Confidentiality of Alcohol and Drug Abuse Patient Records regulations: The Federal rules restrict any use of the information to criminally investigate or prosecute any alcohol or drug abuse patient.[facility]ima[facility] the event this information is protected by the Federal Confidentiality of Alcohol and Drug Abuse Patient Records regulations: The Federal rules restrict any use of the information to criminally investigate or prosecute any alcohol or drug abuse patient.[facility] the event this information is protected by the Federal Confidentiality of Alcohol and Drug Abuse Patient Records regulations: The Federal rules restrict any use of the information to criminally investigate or prosecute any alcohol or drug abuse patient.[facility] the event this information is protected by the Federal Confidentiality of Alcohol and Drug Abuse Patient Records regulations: The Federal rules restrict any use of the information to criminally investigate or prosecute any alcohol or drug abuse patient.[facility]ima[facility] the event this information is protected by the Federal Confidentiality of Alcohol and Drug Abuse Patient Records regulations: The Federal rules restrict any use of the information to criminally investigate or prosecute any alcohol or drug abuse patient.[facility]ima[facility] the event this information is protected by [...] or prosecute any alcohol or drug abuse patient.[facility]ima[facility] the event this information is protected by the Federal Confidentiality of Alcohol and Drug Abuse Patient Records regulations: The Federal rules restrict any use of the information to criminally investigate or prosecute any alcohol or drug abuse patient.[facility]ima[facility] the event this information is protected by the Federal Confidentiality of Alcohol and Drug Abuse Patient Records regulations: The Federal rules restrict any use of the information to criminally investigate or prosecute any alcohol or drug abuse patient.[facility] the event this information is protected by the Federal Confidentiality of Alcohol and Drug Abuse Patient Records regulations: The Federal rules restrict any use of the information to criminally investigate or prosecute any alcohol or drug abuse patient.[facility]ima[facility] the event this information is protected by the Federal Confidentiality of Alcohol and Drug Abuse Patient Records regulations: The Federal rules restrict any use of the information to criminally investigate or prosecute any alcohol or drug abuse patient.[facility]ima[facility] the event this information is protected by the Federal Confidentiality of Alcohol and Drug Abuse Patient Records regulations: The Federal rules restrict any use of the information to criminally investigate or prosecute any alcohol or drug abuse patient.[facility]ima[facility] the event this information is protected by the Federal Confidentiality of Alcohol and Drug Abuse Patient Records regulations: The Federal rules restrict any use of the information to criminally investigate or prosecute any alcohol or drug abuse patient.[facility]ima[facility] the event this information is protected by the Federal Confidentiality of Alcohol and Drug Abuse Patient Records regulations: The Federal rules restrict any use of the information to criminally investigate or prosecute any alcohol or drug abuse patient.[facility]ima[facility] the event this information is protected by the Federal Confidentiality of Alcohol and Drug Abuse Patient Records regulations: The Federal rules restrict any use of the information to criminally investigate or prosecute any alcohol or drug abuse patient.[facility]ima[facility] the event this information is protected by the Federal Confidentiality of Alcohol and Drug Abuse Patient Records regulations: The Federal rules restrict any use of the information to criminally investigate or prosecute any alcohol or drug abuse patient.[facility]In the event this information is protected by the Federal Confidentiality of Alcohol and Drug Abuse Patient Records regulations: The Federal rules restrict any use of the information to criminally investigate or prosecute any alcohol or drug abuse patient.[facility]imaIn the event this information is protected by the Federal Confidentiality of Alcohol and Drug Abuse Patient Records regulations: The Federal rules restrict any use of the information to criminally investigate or prosecute any alcohol or drug abuse patient.[facility]imaIn the event this information is protected by the Federal Confidentiality of Alcohol and Drug Abuse Patient Records regulations: The Federal rules restrict any use of the information to criminally investigate or prosecute any alcohol or drug abuse patient.[facility]imaIn the event this information is protected by the Federal Confidentiality of Alcohol and Drug Abuse Patient Records regulations: The Federal rules restrict any use of the information to criminally investigate or prosecute any alcohol or drug abuse patient.[facility]imaIn the event this information is protected by the Federal Confidentiality of Alcohol and Drug Abuse Patient Records regulations: The Federal rules restrict any use of the information to criminally investigate or prosecute any alcohol or drug abuse patient.[facility]imaIn the event this information is protected by the Federal Confidentiality of Alcohol and Drug Abuse Patient Records regulations: The Federal rules restrict any use of the information to criminally investigate or prosecute any alcohol or drug abuse patient.[facility]imaIn the event this information is protected by the Federal Confidentiality of Alcohol and Drug Abuse Patient Records regulations: The Federal rules restrict any use of the information to criminally investigate or prosecute any alcohol or drug abuse patient.[facility]imaIn the event this information is protected by the Federal Confidentiality of Alcohol and Drug Abuse Patient Records regulations: The Federal rules restrict any use of the information to criminally investigate or prosecute any alcohol or drug abuse patient.[facility]imaIn the event this information is protected by the Federal Confidentiality of Alcohol and Drug Abuse Patient Records regulations: The Federal rules restrict any use of the information to criminally investigate or prosecute any alcohol or drug abuse patient.[facility]imaIn the event this information is protected by the Federal Confidentiality of Alcohol and Drug Abuse Patient Records regulations: The Federal rules restrict any use of the information to criminally investigate or prosecute any alcohol or drug abuse patient.[facility]imaIn the event this information is protected by the Federal Confidentiality of Alcohol and Drug Abuse Patient Records regulations: The Federal rules restrict any use of the information to criminally investigate or prosecute any alcohol or drug abuse patient.[facility]imaIn the event this information is protected by the Federal Confidentiality of Alcohol and Drug Abuse Patient Records regulations: The Federal rules restrict any use of the information to criminally investigate or prosecute any alcohol or drug abuse patient.[facility]imaIn the event this information is protected by the Federal Confidentiality of Alcohol and Drug Abuse Patient Records regulations: The Federal rules restrict any use of the information to criminally investigate or prosecute any alcohol or drug abuse patient.[facility]imaIn the event this information is protected by the Federal Confidentiality of Alcohol and Drug Abuse Patient Records regulations: The Federal rules restrict any use of the information to criminally investigate or prosecute any alcohol or drug abuse patient.[facility]In the event this information is protected by the Federal Confidentiality of Alcohol and Drug Abuse Patient Records regulations: The Federal rules restrict any use of the information to criminally investigate or prosecute any alcohol or drug abuse patient.[facility]imaIn the event this information is protected by the Federal Confidentiality of Alcohol and Drug Abuse Patient Records regulations: The Federal rules restrict any use of the information to criminally investigate or prosecute any alcohol or drug abuse patient.[facility]imaIn the event this information is protected by the Federal Confidentiality of Alcohol and Drug Abuse Patient Records regulations: The Federal rules restrict any use of the information to criminally investigate or prosecute any alcohol or drug abuse patient.[facility]imaIn the event this information is protected by the Federal Confidentiality of Alcohol and Drug Abuse Patient Records regulations: The Federal rules restrict any use of the information to criminally investigate or prosecute any alcohol or drug abuse patient.[facility]imaIn the event this information is protected by the Federal Confidentiality of Alcohol and Drug Abuse Patient Records regulations: The Federal rules restrict any use of the information to criminally investigate or prosecute any alcohol or drug abuse patient.[facility]In the event this information is protected by the Federal Confidentiality of Alcohol and Drug Abuse Patient Records regulations: The Federal rules restrict any use of the information to criminally investigate or prosecute any alcohol or drug abuse patient.[facility]In the event this information is protected by the Federal Confidentiality of Alcohol and Drug Abuse Patient Records regulations: The Federal rules restrict any use of the information to criminally investigate or prosecute any alcohol or drug abuse patient.[facility]imaIn the event this information is protected by the Federal Confidentiality of Alcohol and Drug Abuse Patient Records regulations: The Federal rules restrict any use of the information to criminally investigate or prosecute any alcohol or drug abuse patient.[facility]In the event this information is protected by the Federal Confidentiality of Alcohol and Drug Abuse Patient Records regulations: The Federal rules restrict any use of the information to criminally investigate or prosecute any alcohol or drug abuse patient.[facility]imaIn the event this information is protected by the Federal Confidentiality of Alcohol and Drug Abuse Patient Records regulations: The Federal rules restrict any use of the information to criminally investigate or prosecute any alcohol or drug abuse patient.[facility]imaIn the event this information is protected by the Federal Confidentiality of Alcohol and Drug Abuse Patient Records regulations: The Federal rules restrict any use of the information to criminally investigate or prosecute any alcohol or drug abuse patient.[facility]imaIn the event this information is protected by the Federal Confidentiality of Alcohol and Drug Abuse Patient Records regulations: The Federal rules restrict any use of the information to criminally investigate or prosecute any alcohol or drug abuse patient.[facility]imaIn the event this information is protected by the Federal Confidentiality of Alcohol and Drug Abuse Patient Records regulations: The Federal rules restrict any use of the information to criminally investigate or prosecute any alcohol or drug abuse patient.[facility]imaIn the event this information is protected by the Federal Confidentiality of Alcohol and Drug Abuse Patient Records regulations: The Federal rules restrict any use of the information to criminally investigate or prosecute any alcohol or drug abuse patient.[facility]imaIn the event this information is protected by the Federal Confidentiality of Alcohol and Drug Abuse Patient Records regulations: The Federal rules restrict any use of the information to criminally investigate or prosecute any alcohol or drug abuse patient.[facility]imaIn the event this information is protected by the Federal Confidentiality of Alcohol and Drug Abuse Patient Records regulations: The Federal rules restrict any use of the information to criminally investigate or prosecute any alcohol or drug abuse patient.[facility]In the event this information is protected by the Federal Confidentiality of Alcohol and Drug Abuse Patient Records regulations: The Federal rules restrict any use of the information to criminally investigate or prosecute any alcohol or drug abuse patient.[facility]imaIn the event this information is protected by the Federal Confidentiality of Alcohol and Drug Abuse Patient Records regulations: The Federal rules restrict any use of the information to criminally investigate or prosecute any alcohol or drug abuse patient.[facility]In the event this information is protected by the Federal Confidentiality of Alcohol and Drug Abuse Patient Records regulations: The Federal rules restrict any use of the information to criminally investigate or prosecute any alcohol or drug abuse patient.[facility]imaIn the event this information is protected by the Federal Confidentiality of Alcohol and Drug Abuse Patient Records regulations: The Federal rules restrict any use of the information to criminally investigate or prosecute any alcohol or drug abuse patient.[facility]imaIn the event this information is protected by the Federal Confidentiality of Alcohol and Drug Abuse Patient Records regulations: The Federal rules restrict any use of the information to criminally investigate or prosecute any alcohol or drug abuse patient.[facility]In the event this information is protected by the Federal Confidentiality of Alcohol and Drug Abuse Patient Records regulations: The Federal rules restrict any use of the information to criminally investigate or prosecute any alcohol or drug abuse patient.[facility]imaIn the event this information is protected by the Federal Confidentiality of Alcohol and Drug Abuse Patient Records regulations: The Federal rules restrict any use of the information to criminally investigate or prosecute any alcohol or drug abuse patient.[facility] the event this information is protected by the Federal Confidentiality of Alcohol and Drug Abuse Patient Records regulations: The Federal rules restrict any use of the information to criminally investigate or prosecute any alcohol or drug abuse patient.[facility]imaIn the event this information is protected by the Federal Confidentiality of Alcohol and Drug Abuse Patient Records regulations: The Federal rules restrict any use of the information to criminally investigate or prosecute any alcohol or drug abuse patient.[facility]imaIn the event this information is protected by [...] or prosecute any alcohol or drug abuse patient.[facility]imaIn the event this information is protected by the Federal Confidentiality of Alcohol and Drug Abuse Patient Records regulations: The Federal rules restrict any use of the information to criminally investigate or prosecute any alcohol or drug abuse patient.[facility]imaIn the event this information is protected by the Federal Confidentiality of Alcohol and Drug Abuse Patient Records regulations: The Federal rules restrict any use of the information to criminally investigate or prosecute any alcohol or drug abuse patient.[facility]imaIn the event this information is protected by the Federal Confidentiality of Alcohol and Drug Abuse Patient Records regulations: The Federal rules restrict any use of the information to criminally investigate or prosecute any alcohol or drug abuse patient.[facility]imaIn the event this information is protected by the Federal Confidentiality of Alcohol and Drug Abuse Patient Records regulations: The Federal rules restrict any use of the information to criminally investigate or prosecute any alcohol or drug abuse patient.[facility]imaIn the event this information is protected by the Federal Confidentiality of Alcohol and Drug Abuse Patient Records regulations: The Federal rules restrict any use of the information to criminally investigate or prosecute any alcohol or drug abuse patient.[facility]imaIn the event this information is protected by the Federal Confidentiality of Alcohol and Drug Abuse Patient Records regulations: The Federal rules restrict any use of the information to criminally investigate or prosecute any alcohol or drug abuse patient.[facility]imaIn the event this information is protected by the Federal Confidentiality of Alcohol and Drug Abuse Patient Records regulations: The Federal rules restrict any use of the information to criminally investigate or prosecute any alcohol or drug abuse patient.[facility]imaIn the event this information is protected by the Federal Confidentiality of Alcohol and Drug Abuse Patient Records regulations: The Federal rules restrict any use of the information to criminally investigate or prosecute any alcohol or drug abuse patient.[facility]imaIn the event this information is protected by the Federal Confidentiality of Alcohol and Drug Abuse Patient Records regulations: The Federal rules restrict any use of the information to criminally investigate or prosecute any alcohol or drug abuse patient.[facility]imaIn the event this information is protected by the Federal Confidentiality of Alcohol and Drug Abuse Patient Records regulations: The Federal rules restrict any use of the information to criminally investigate or prosecute any alcohol or drug abuse patient.[facility]imaIn the event this information is protected by the Federal Confidentiality of Alcohol and Drug Abuse Patient Records regulations: The Federal rules restrict any use of the information to criminally investigate or prosecute any alcohol or drug abuse patient.[facility]imaIn the event this information is protected by the Federal Confidentiality of Alcohol and Drug Abuse Patient Records regulations: The Federal rules restrict any use of the information to criminally investigate or prosecute any alcohol or drug abuse patient.[facility]imaIn the event this information is protected by the Federal Confidentiality of Alcohol and Drug Abuse Patient Records regulations: The Federal rules restrict any use of the information to criminally investigate or prosecute any alcohol or drug abuse patient.[facility]imaIn the event this information is protected by the Federal Confidentiality of Alcohol and Drug Abuse Patient Records regulations: The Federal rules restrict any use of the information to criminally investigate or prosecute any alcohol or drug abuse patient.[facility]imaIn the event this information is protected by the Federal Confidentiality of Alcohol and Drug Abuse Patient Records regulations: The Federal rules restrict any use of the information to criminally investigate or prosecute any alcohol or drug abuse patient.[facility]imaIn the event this information is protected by the Federal Confidentiality of Alcohol and Drug Abuse Patient Records regulations: The Federal rules restrict any use of the information to criminally investigate or prosecute any alcohol or drug abuse patient.[facility]imaIn the event this information is protected by the Federal Confidentiality of Alcohol and Drug Abuse Patient Records regulations: The Federal rules restrict any use of the information to criminally investigate or prosecute any alcohol or drug abuse patient.[facility]imaIn the event this information is protected by the Federal Confidentiality of Alcohol and Drug Abuse Patient Records regulations: The Federal rules restrict any use of the information to criminally investigate or prosecute any alcohol or drug abuse patient.[facility]imaIn the event this information is protected by the Federal Confidentiality of Alcohol and Drug Abuse Patient Records regulations: The Federal rules restrict any use of the information to criminally investigate or prosecute any alcohol or drug abuse patient.[facility]imaIn the event this information is protected by the Federal Confidentiality of Alcohol and Drug Abuse Patient Records regulations: The Federal rules restrict any use of the information to criminally investigate or prosecute any alcohol or drug abuse patient.[facility]imaIn the event this information is protected by the Federal Confidentiality of Alcohol and Drug Abuse Patient Records regulations: The Federal rules restrict any use of the information to criminally investigate or prosecute any alcohol or drug abuse patient.[facility]imaIn the event this information is protected by the Federal Confidentiality of Alcohol and Drug Abuse Patient Records regulations: The Federal rules restrict any use of the information to criminally investigate or prosecute any alcohol or drug abuse patient.[facility]imaIn the event this information is protected by the Federal Confidentiality of Alcohol and Drug Abuse Patient Records regulations: The Federal rules restrict any use of the information to criminally investigate or prosecute any alcohol or drug abuse patient.[facility]imaIn the event this information is protected by the Federal Confidentiality of Alcohol and Drug Abuse Patient Records regulations: The Federal rules restrict any use of the information to criminally investigate or prosecute any alcohol or drug abuse patient.[facility]imaIn the event this information is protected by the Federal Confidentiality of Alcohol and Drug Abuse Patient Records regulations: The Federal rules restrict any use of the information to criminally investigate or prosecute any alcohol or drug abuse patient.[facility]imaIn the event this information is protected by the Federal Confidentiality of Alcohol and Drug Abuse Patient Records regulations: The Federal rules restrict any use of the information to criminally investigate or prosecute any alcohol or drug abuse patient.[facility]imaIn the event this information is protected by the Federal Confidentiality of Alcohol and Drug Abuse Patient Records regulations: The Federal rules restrict any use of the information to criminally investigate or prosecute any alcohol or drug abuse patient.[facility]imaIn the event this information is protected by the Federal Confidentiality of Alcohol and Drug Abuse Patient Records regulations: The Federal rules restrict any use of the information to criminally investigate or prosecute any alcohol or drug abuse patient.[facility]imaIn the event this information is protected by the Federal Confidentiality of Alcohol and Drug Abuse Patient Records regulations: The Federal rules restrict any use of the information to criminally investigate or prosecute any alcohol or drug abuse patient.[facility]imaIn the event this information is protected by the Federal Confidentiality of Alcohol and Drug Abuse Patient Records regulations: The Federal rules restrict any use of the information to criminally investigate or prosecute any alcohol or drug abuse patient.[facility]imaIn the event this information is protected by the Federal Confidentiality of Alcohol and Drug Abuse Patient Records regulations: The Federal rules restrict any use of the information to criminally investigate or prosecute any alcohol or drug abuse patient.[facility]imaIn the event this information is protected by the Federal Confidentiality of Alcohol and Drug Abuse Patient Records regulations: The Federal rules restrict any use of the information to criminally investigate or prosecute any alcohol or drug abuse patient.[facility]imaIn the event this information is protected by the Federal Confidentiality of Alcohol and Drug Abuse Patient Records regulations: The Federal rules restrict any use of the information to criminally investigate or prosecute any alcohol or drug abuse patient.[facility]imaIn the event this information is protected by the Federal Confidentiality of Alcohol and Drug Abuse Patient Records regulations: The Federal rules restrict any use of the information to criminally investigate or prosecute any alcohol or drug abuse patient.[facility]imaIn the event this information is protected by the Federal Confidentiality of Alcohol and Drug Abuse Patient Records regulations: The Federal rules restrict any use of the information to criminally investigate or prosecute any alcohol or drug abuse patient.[facility]imaIn the event this information is protected by the Federal Confidentiality of Alcohol and Drug Abuse Patient Records regulations: The Federal rules restrict any use of the information to criminally investigate or prosecute any alcohol or drug abuse patient.[facility]imaIn the event this information is protected by the Federal Confidentiality of Alcohol and Drug Abuse Patient Records regulations: The Federal rules restrict any use of the information to criminally investigate or prosecute any alcohol or drug abuse patient.[facility]imaIn the event this information is protected by the Federal Confidentiality of Alcohol and Drug Abuse Patient Records regulations: The Federal rules restrict any use of the information to criminally investigate or prosecute any alcohol or drug abuse patient.[facility]imaIn the event this information is protected by the Federal Confidentiality of Alcohol and Drug Abuse Patient Records regulations: The Federal rules restrict any use of the information to criminally investigate or prosecute any alcohol or drug abuse patient.[facility]imaIn the event this information is protected by the Federal Confidentiality of Alcohol and Drug Abuse Patient Records regulations: The Federal rules restrict any use of the information to criminally investigate or prosecute any alcohol or drug abuse patient.[facility]imaIn the event this information is protected by the Federal Confidentiality of Alcohol and Drug Abuse Patient Records regulations: The Federal rules restrict any use of the information to criminally investigate or prosecute any alcohol or drug abuse patient.[facility]imaIn the event this information is protected by the Federal Confidentiality of Alcohol and Drug Abuse Patient Records regulations: The Federal rules restrict any use of the information to criminally investigate or prosecute any alcohol or drug abuse patient.[facility]imaIn the event this information is protected by the Federal Confidentiality of Alcohol and Drug Abuse Patient Records regulations: The Federal rules restrict any use of the information to criminally investigate or prosecute any alcohol or drug abuse patient.[facility]imaIn the event this information is protected by the Federal Confidentiality of Alcohol and Drug Abuse Patient Records regulations: The Federal rules restrict any use of the information to criminally investigate or prosecute any alcohol or drug abuse patient.[facility]imaIn the event this information is protected by the Federal Confidentiality of Alcohol and Drug Abuse Patient Records regulations: The Federal rules restrict any use of the information to criminally investigate or prosecute any alcohol or drug abuse patient.[facility]imaIn the event this information is protected by the Federal Confidentiality of Alcohol and Drug Abuse Patient Records regulations: The Federal rules restrict any use of the information to criminally investigate or prosecute any alcohol or drug abuse patient.[facility] the event this information is protected by the Federal Confidentiality of Alcohol and Drug Abuse Patient Records regulations: The Federal rules restrict any use of the information to criminally investigate or prosecute any alcohol or drug abuse patient.[facility]imaIn the event this information is protected by the Federal Confidentiality of Alcohol and Drug Abuse Patient Records regulations: The Federal rules restrict any use of the information to criminally investigate or prosecute any alcohol or drug abuse patient.[facility]imaIn the event this information is protected by [...] or prosecute any alcohol or drug abuse patient.[facility] LimaIn the event this information is protected by the Federal Confidentiality of Alcohol and Drug Abuse Patient Records regulations: The Federal rules restrict any use of the information to criminally investigate or prosecute any alcohol or drug abuse patient.[facility]imaIn the event this information is protected by the Federal Confidentiality of Alcohol and Drug Abuse Patient Records regulations: The Federal rules restrict any use of the information to criminally investigate or prosecute any alcohol or drug abuse patient.[facility]imaIn the event this information is protected by the Federal Confidentiality of Alcohol and Drug Abuse Patient Records regulations: The Federal rules restrict any use of the information to criminally investigate or prosecute any alcohol or drug abuse patient.[facility]imaIn the event this information is protected by the Federal Confidentiality of Alcohol and Drug Abuse Patient Records regulations: The Federal rules restrict any use of the information to criminally investigate or prosecute any alcohol or drug abuse patient.[facility]imaIn the event this information is protected by the Federal Confidentiality of Alcohol and Drug Abuse Patient Records regulations: The Federal rules restrict any use of the information to criminally investigate or prosecute any alcohol or drug abuse patient.[facility]imaIn the event this information is protected by the Federal Confidentiality of Alcohol and Drug Abuse Patient Records regulations: The Federal rules restrict any use of the information to criminally investigate or prosecute any alcohol or drug abuse patient.[facility]imaIn the event this information is protected by the Federal Confidentiality of Alcohol and Drug Abuse Patient Records regulations: The Federal rules restrict any use of the information to criminally investigate or prosecute any alcohol or drug abuse patient.[facility]imaIn the event this information is protected by the Federal Confidentiality of Alcohol and Drug Abuse Patient Records regulations: The Federal rules restrict any use of the information to criminally investigate or prosecute any alcohol or drug abuse patient.[facility]imaIn the event this information is protected by the Federal Confidentiality of Alcohol and Drug Abuse Patient Records regulations: The Federal rules restrict any use of the information to criminally investigate or prosecute any alcohol or drug abuse patient.[facility]imaIn the event this information is protected by the Federal Confidentiality of Alcohol and Drug Abuse Patient Records regulations: The Federal rules restrict any use of the information to criminally investigate or prosecute any alcohol or drug abuse patient.[facility] Care Teams (unrecognized sec tion and content) Clinical Services Specialist Relationship Specialty Start Date End Date Doreen Le PA-C [address] [place] [address] PCP - General Family Practice 11/26/16 No, Referral Referring 01/31/19 [place] [address] [place], [place] [id number] Primary Staff Physician Cardiology 07/15/21 Clinical Services Specialist Relationship Specialty Start Date End Date Doreen Le PA-C [address] [place], [place] 452301 PCP - General Family Practice 11/26/16 No, Referral Referring 01/31/19 [place] [address] [place], [place] [id number] Primary Staff Physician Cardiology 07/15/21 Clinical Services Specialist Relationship Specialty Start Date End Date Doreen Le PA-C [address] [place], [place] 287871 PCP - General Family Practice 11/26/16 No, Referral Referring 01/31/19 [place] [address] [facility] [place] [id number] Primary Staff Physician Cardiology 07/15/21 Clinical Services Specialist Relationship Specialty Start Date End Date Doreen Le PA-C [address] [place] [address] PCP - General Family Practice 11/26/16 No, Referral Referring 01/31/19 [place] [address] [place], [place] 5193928 [phone] Primary Staff Physician Cardiology 07/15/21 Clinical Services Specialist Relationship Specialty Start Date End Date Doeren Le PA-C [address] [place] [address] PCP - General Family Practice 11/26/16 No, Referral Referring 01/31/19 [place] [address] [place], [place] [id number] [phone] Primary Staff Physician Cardiology 07/15/21 Clinical Services Specialist Relationship Specialty Start Date End Date Doreen Le PA-C [address] [place], [place] 816141 PCP - General Family Practice 11/26/16 No, Referral Referring 01/31/19 [place] [address] [place], [place] 2198708 [phone] Primary Staff Physician Cardiology 07/15/21 Clinical Services Specialist Relationship Specialty Start Date End Date Doreen Le PA-C [address] [place] [address] PCP - General Family Practice 11/26/16 No, Referral Referring 01/31/19 [place] [address] [place], [place] 4511459 [phone] Primary Staff Physician Cardiology 07/15/21 Clinical Services Specialist Relationship Specialty Start Date End Date Doreen Le PA-C [address] [place] [address] PCP - General Family Practice 11/26/16 No, Referral Referring 01/31/19 [place] [address] [place] [address] Primary Staff Physician Cardiology 07/15/21 Clinical Services Specialist Relationship Specialty Start Date End Date Doreen Le PA-C [address] [place] [address] PCP - General Family Practice 11/26/16 No, Referral Referring 01/31/19 [place] [address] [place], [place] 9957321 [phone] Primary Staff Physician Cardiology 07/15/21 Clinical Services Specialist Relationship Specialty Start Date End Date Doreen Le PA-C [address] [place], [place] [id number] PCP - General Family Practice 11/26/16 No, Referral Referring 01/31/19 [place] [address] [place], [place] 0787297 [phone] Primary Staff Physician Cardiology 07/15/21 Clinical Services Specialist Relationship Specialty Start Date End Date Doreen Le PA-C [address] [place], [place] [id number] PCP - General Family Practice 11/26/16 No, Referral Referring 01/31/19 [place] [address] [place], [place] 5538155 [phone] Primary Staff Physician Cardiology 07/15/21 Clinical Services Specialist Relationship Specialty Start Date End Date Doreen Le PA-C [address] [place] [address] PCP - General Family Practice 11/26/16 No, Referral Referring 01/31/19 [place] [address] [place] [address] Primary Staff Physician Cardiology 07/15/21 Clinical Services Specialist Relationship Specialty Start Date End Date Doreen Le PA-C [address] [place] [address] PCP - General Family Practice 11/26/16 No, Referral Referring 01/31/19 [place] [address] [place], [place] 9339629 [phone] Primary Staff Physician Cardiology 07/15/21 Clinical Services Specialist Relationship Specialty Start Date End Date Doreen Le PA-C [address] [place] [address] PCP - General Family Practice 11/26/16 No, Referral Referring 01/31/19 [place] [address] [place], [place] 8317415 [phone] Primary Staff Physician Cardiology 07/15/21 Clinical Services Specialist Relationship Specialty Start Date End Date Doreen Le PA-C [address] [place] [address] PCP - General Family Practice 11/26/16 No, Referral Referring 01/31/19 [place] [address] [facility] 7621823 [phone] Primary Staff Physician Cardiology 07/15/21 Clinical Services Specialist Relationship Specialty Start Date End Date Doreen Le PA-C [address] [place] [address] PCP - General Family Practice 11/26/16 No, Referral Referring 01/31/19 [place] [address] [place], [place] 5267771 [phone] Primary Staff Physician Cardiology 07/15/21 Clinical Services Specialist Relationship Specialty Start Date End Date Doreen Le PA-C [address] [place] [address] PCP - General Family Practice 11/26/16 No, Referral Referring 01/31/19 [place] [address] [facility] [place] 3349374 [phone] Primary Staff Physician Cardiology 07/15/21 Clinical Services Specialist Relationship Specialty Start Date End Date Doreen Le PA-C [address] [place] [address] PCP - General Family Practice 11/26/16 No, Referral Referring 01/31/19 [place] [address] [place], [place] 4847126 Primary Staff Physician Cardiology 07/15/21 Sheridan Cervantes RN Primary Care Soil Biology Teacher 02/25/22 03/27/22 Clinical Services Specialist Relationship Specialty Start Date End Date Doreen Le PA-C [address] [place] [address] PCP - General Family Practice 11/26/16 No, Referral Referring 01/31/19 [place] [address] [facility] [place], [place] 4054826 Primary Staff Physician Cardiology 07/15/21 Sheridan Cervantes RN Primary Care Soil Biology Teacher 02/25/22 03/27/22 Carla Burdick MD [address] [place] [address] Cardiology 03/03/22 03/03/22 Carla Burdick MD [address] [place] [address] Primary Staff Physician Cardiology 03/03/22 Clinical Services Specialist Relationship Specialty Start Date End Date Doreen Le PA-C [address] [place] [address] PCP - General Family Practice 11/26/16 No, Referral Referring 01/31/19 [place] [address] [facility] [place] 0261126 Primary Staff Physician Cardiology 07/15/21 Sheridan Cervantes RN Primary Care Soil Biology Teacher 02/25/22 03/27/22 Carla Burdick MD [address] [place] [address] Cardiology 03/03/22 03/03/22 Carla Burdick MD [address] [place] [address] Primary Staff Physician Cardiology 03/03/22 Clinical Services Specialist Relationship Specialty Start Date End Date Doreen Le PA-C [address] [place] [address] PCP - General Family Practice 11/26/16 No, Referral Referring 01/31/19 [place] [address] [place], [place] 8024426 Primary Staff Physician Cardiology 07/15/21 Sheridan Cervantes RN Primary Care Soil Biology Teacher 02/25/22 03/27/22 Carla Burdick MD [address] [place] [address] Primary Staff Physician Cardiology 03/03/22 Clinical Services Specialist Relationship Specialty Start Date End Date Doreen Le PA-C [address] [place] [address] PCP - General Family Practice 11/26/16 No, Referral Referring 01/31/19 [place] [address] [place], [place] 2286626 Primary Staff Physician Cardiology 07/15/21 Sheridan Cervantes RN Primary Care Soil Biology Teacher 02/25/22 03/27/22 Carla Burdick MD [address] [place] [address] Primary Staff Physician Cardiology 03/03/22 Clinical Services Specialist Relationship Specialty Start Date End Date Doreen Le PA-C [address] [place] [address] PCP - General Family Practice 11/26/16 No, Referral Referring 01/31/19 [place] [address] [facility] 1071626 Primary Staff Physician Cardiology 07/15/21 Sheridan Cervantes, smocking machine operator Soil Biology Teacher 02/25/22 03/27/22 Carla Burdick MD [address] [facility] [place] [place] [address]41 Primary Staff Physician Cardiology 03/03/22 Clinical Services Specialist Relationship Specialty Start Date End Date Doreen Le PA-C [address] [place] [address] PCP - General Family Practice 11/26/16 No, Referral Referring 01/31/19 [place] [address] [place], [place] [phone] Primary Staff Physician Cardiology 07/15/21 Carla Burdick MD [address] [place] [address] Primary Staff Physician Cardiology 03/03/22 Clinical Services Specialist Relationship Specialty Start Date End Date Doreen Le PA-C [address] [place] [address] PCP - General Family Practice 11/26/16 No, Referral Referring 01/31/19 [place] [address] [facility] [place] 9896012 [phone] Primary Staff Physician Cardiology 07/15/21 Carla Burdick MD [address] [facility] [place] [address] Primary Staff Physician Cardiology 03/03/22 Clinical Services Specialist Relationship Specialty Start Date End Date Doreen Le PA-C [address] [place] [address] PCP - General Family Medicine 11/26/16 No, Referral Referring 01/31/19 [place] [address] [place], [place] 3016234 [phone] Primary Staff Physician Cardiology 07/15/21 Carla Burdick MD [address] [place] [address] Primary Staff Physician Cardiology 03/03/22 Clinical Services Specialist Relationship Specialty Start Date End Date Doreen Le PA-C [address] [place] [address] PCP - General Family Medicine 11/26/16 No, Referral Referring 01/31/19 [place] [address] [place] [address] Primary Staff Physician Cardiology 07/15/21 Carla Burdick MD [address] [place] [address] Primary Staff Physician Cardiology 03/03/22 Clinical Services Specialist Relationship Specialty Start Date End Date Doreen Le PA-C [address] [place] [address] PCP - General Family Medicine 11/26/16 No, Referral Referring 01/31/19 [place] [address] [place] [address] Primary Staff Physician Cardiology 07/15/21 Carla Burdick MD [address] [place] [address] Primary Staff Physician Cardiology 03/03/22 Clinical Services Specialist Relationship Specialty Start Date End Date Doreen Le PA-C [address] [place] [address] PCP - General Family Medicine 11/26/16 No, Referral Referring 01/31/19 [place] [address] [facility] [place] [place] 9529403 [phone] Primary Staff Physician Cardiology 07/15/21 Carla Burdick MD [address] [place] [address] Cardiology 03/03/22 03/03/22 Carla Burdick MD [address] [place] [address] Primary Staff Physician Cardiology 03/03/22 Clinical Services Specialist Relationship Specialty Start Date End Date Doreen Le PA-C [address] [place] [address] PCP - General Family Medicine 11/26/16 No, Referral Referring 01/31/19 [place] [address] [place] [address] Primary Staff Physician Cardiology 07/15/21 Carla Burdick MD [address] [place] [address] Primary Staff Physician Cardiology 03/03/22 Clinical Services Specialist Relationship Specialty Start Date End Date Doreen Le PA-C [address] [place] [address] PCP - General Family Medicine 11/26/16 No, Referral Referring 01/31/19 [place] [address] [facility] [place] 9122988 [phone] Primary Staff Physician Cardiology 07/15/21 Carla Burdick MD [address] [place] [address] Primary Staff Physician Cardiology 03/03/22 Clinical Services Specialist Relationship Specialty Start Date End Date Doreen Le PA-C [address] [place] [address] PCP - General Family Medicine 11/26/16 No, Referral Referring 01/31/19 [place] [address] [facility] [place] [place] 2715203 [phone] Primary Staff Physician Cardiology 07/15/21 Carla Burdick MD [address] [place] [address] Primary Staff Physician Cardiology 03/03/22 Clinical Services Specialist Relationship Specialty Start Date End Date Doreen Le PA-C [address] [place] [address] PCP - General Family Medicine 11/26/16 No, Referral Referring 01/31/19 [place] [address] [place] [address] Primary Staff Physician Cardiology 07/15/21 Carla Burdick MD [address] [place] [address] Primary Staff Physician Cardiology 03/03/22 Clinical Services Specialist Relationship Specialty Start Date End Date Doreen Le PA-C [address] [place] [address] PCP - General Family Medicine 11/26/16 No, Referral Referring 01/31/19 [place] [address] [place] [address] Primary Staff Physician Cardiology 07/15/21 Carla Burdick MD [address] [place] [address] Primary Staff Physician Cardiology 03/03/22 Clinical Services Specialist Relationship Specialty Start Date End Date Doreen Le PA-C [address] [facility] [place] [address] PCP - General Family Medicine 11/26/16 No, Referral Referring 01/31/19 [place] [address] [place] [address] Primary Staff Physician Cardiology 07/15/21 Carla Burdick MD [address] [place] [address] Primary Staff Physician Cardiology 03/03/22 Sonny Lund MD [address] [facility] [place] [address] Hematology/Oncology 04/22/22 Clinical Services Specialist Relationship Specialty Start Date End Date Doreen Le PA-C [address] [facility] [place] [address] PCP - General Family Medicine 11/26/16 No, Referral Referring 01/31/19 [place] [address] [place] [address] Primary Staff Physician Cardiology 07/15/21 Carla Burdick MD [address] [place] [address] Primary Staff Physician Cardiology 03/03/22 Sonny Lund MD [address] [facility] [address] Hematology/Oncology 04/22/22 Clinical Services Specialist Relationship Specialty Start Date End Date Doreen Le PA-C [address] [facility] [place] [address] PCP - General Family Medicine 11/26/16 No, Referral Referring 01/31/19 [place] [address] [place] [address] Primary Staff Physician Cardiology 07/15/21 Carla Burdick MD [address] [place] [address] Primary Staff Physician Cardiology 03/03/22 Sonny Lund MD [address] [facility] [place] [address] Hematology/Oncology 04/22/22 Clinical Services Specialist Relationship Specialty Start Date End Date Doreen Le PA-C [address] [facility] [place] [address] PCP - General Family Medicine 11/26/16 No, Referral Referring 01/31/19 [place] [address] [place] [address] Primary Staff Physician Cardiology 07/15/21 Carla Burdick MD [address] [place] [address] Primary Staff Physician Cardiology 03/03/22 Sonny Lund MD [address] [facility] [place] [address] Hematology/Oncology 04/22/22 Clinical Services Specialist Relationship Specialty Start Date End Date Doreen Le PA-C [address] [facility] [place] [address] PCP - General Family Medicine 11/26/16 No, Referral Referring 01/31/19 [place] [address] [place] [address] Primary Staff Physician Cardiology 07/15/21 Carla Burdick MD [address] [place] [address] Primary Staff Physician Cardiology 03/03/22 Sonny Lund MD [address] [facility] [place] [address] Hematology/Oncology 04/22/22 Clinical Services Specialist Relationship Specialty Start Date End Date Doreen Le PA-C [address] [place] [address] PCP - General Family Medicine 11/26/16 No, Referral Referring 01/31/19 [place] [address] [place] [address] Primary Staff Physician Cardiology 07/15/21 Carla Burdick MD [address] [place] [address] Primary Staff Physician Cardiology 03/03/22 Sonny Lund MD [address] [place] [facility] [place] [address] Hematology/Oncology 04/22/22 Clinical Services Specialist Relationship Specialty Start Date End Date Doreen Le PA-C [address] [facility] [place] [address] PCP - General Family Medicine 11/26/16 No, Referral Referring 01/31/19 [place] [address] [place] [address] Primary Staff Physician Cardiology 07/15/21 Carla Burdick MD [address] [place] [address] Primary Staff Physician Cardiology 03/03/22 Sonny Lund MD [address] [facility] [address] Hematology/Oncology 04/22/22 Clinical Services Specialist Relationship Specialty Start Date End Date Doreen Le PA-C [address] [facility] [place] [address] PCP - General Family Medicine 11/26/16 No, Referral Referring 01/31/[place] [address] [place] [address] Primary Staff Physician Cardiology 07/15/21 Carla Burdick MD [address] [facility] [address] Primary Staff Physician Cardiology 03/03/22 Sonny Lund MD [address] [place] [facility] [place] [address] Hematology/Oncology 04/22/22 Clinical Services Specialist Relationship Specialty Start Date End Date Doreen Le PA-C [address] [facility] [place] [address] PCP - General Family Medicine 11/26/16 No, Referral Referring 01/31/[place] [address] [place] [address] Primary Staff Physician Cardiology 07/15/21 Carla Burdick MD [address] [facility] [address] Primary Staff Physician Cardiology 03/03/22 Sonny Lund MD [address] [facility] [place] [address] Hematology/Oncology 04/22/22 Clinical Services Specialist Relationship Specialty Start Date End Date Doreen Le PA-C [address] [facility] [place] [address] PCP - General Family Medicine 11/26/16 No, Referral Referring 01/31/[place] [address] [place] [address] Primary Staff Physician Cardiology 07/15/21 Carla Burdick MD [address] [place] [address] Primary Staff Physician Cardiology 03/03/22 Sonny Lund MD [address] [place] [facility] [place] [address] Hematology/Oncology 04/22/22 Clinical Services Specialist Relationship Specialty Start Date End Date Doreen Le PA-C [address] [facility] [place] [address] PCP - General Family Medicine 11/26/16 No, Referral Referring 01/31/19 [place] [address] [place] [address] Primary Staff Physician Cardiology 07/15/21 Carla Burdick MD [address] [place] [address] Primary Staff Physician Cardiology 03/03/22 Sonny Lund MD [address] [place] [facility] [place] [address] Hematology/Oncology 04/22/22 Clinical Services Specialist Relationship Specialty Start Date End Date Doreen Le PA-C [address]69 [facility] [place] [address] PCP - General Family Medicine 11/26/16 No, Referral Referring 01/31/19 [place] [address] [place] [address] Primary Staff Physician Cardiology 07/15/21 Carla Burdick MD [address] [place] [address] Primary Staff Physician Cardiology 03/03/22 Sonny Lund MD [address] [place] [address] Hematology/Oncology 04/22/22 Clinical Services Specialist Relationship Specialty Start Date End Date Doreen Le PA-C [address] [facility] [place] [address] PCP - General Family Medicine 11/26/16 No, Referral Referring 01/31/19 [place] [address] [place] [address] Primary Staff Physician Cardiology 07/15/21 Carla Burdick MD [address] [place] [address] Primary Staff Physician Cardiology 03/03/22 Sonny Lund MD [address] [place] [address] Hematology/Oncology 04/22/22 Clinical Services Specialist Relationship Specialty Start Date End Date Doreen Le PA-C [address]26 [facility] [place] [address] PCP - General Family Medicine 11/26/16 No, Referral Referring 01/31/19 [place] [address] [place] [address] Primary Staff Physician Cardiology 07/15/21 Carla Burdick MD [address] [place] [address] Primary Staff Physician Cardiology 03/03/22 Sonny Lund MD [address] [place], [place] [address] Hematology/Oncology 04/22/22 Clinical Services Specialist Relationship Specialty Start Date End Date Doreen Le PA-C [address] [place] [address] PCP - General Family Medicine 11/26/16 No, Referral Referring 01/31/19 [place] [address] [place], [place] 7208826 Primary Staff Physician Cardiology 07/15/21 Carla Burdick MD [address] [place] [address] Primary Staff Physician Cardiology 03/03/22 Sonny Lund MD [address] [place] [address] Hematology/Oncology 04/22/22 Clinical Services Specialist Relationship Specialty Start Date End Date Doreen Le PA-C [address] [place] [address] PCP - General Family Medicine 11/26/16 No, Referral Referring 01/31/19 [place] [address] [place], [place] 2204426 Primary Staff Physician Cardiology 07/15/21 Carla Burdick MD [address], [place] 145[address] Primary Staff Physician Cardiology 03/03/22 Sonny Lund MD [address] [facility] [place], [place] [address] Hematology/Oncology 04/22/22 Clinical Services Specialist Relationship Specialty Start Date End Date Doreen Le PA-C [address] [place], [place] 821731 PCP - General Family Medicine 11/26/16 No, Referral Referring 01/31/19 [place] [address] [facility] [place] [place] 488[address] Primary Staff Physician Cardiology 07/15/21 Carla Budrick MD [address] [place] [address] Primary Staff Physician Cardiology 03/03/22 Sonny Lund MD [address] [place], [place] 675[address] Hematology/Oncology 04/22/22 Clinical Services Specialist Relationship Specialty Start Date End Date Doreen Le PA-C [address] [place] [address] PCP - General Family Medicine 11/26/16 No, Referral Referring 01/31/19 [place] [address] [place], [place] 5049226 Primary Staff Physician Cardiology 07/15/21 Carla Burdick MD [address] [facility] [place] [address] Primary Staff Physician Cardiology 03/03/22 Sonny Lund MD [address] [facility] [place] [address] Hematology/Oncology 04/22/22 Clinical Services Specialist Relationship Specialty Start Date End Date Doreen Le PA-C [address] [place], [place] 781141 PCP - General Family Medicine 11/26/16 No, Referral Referring 01/31/19 [place] [address] [place], [place] 1046426 Primary Staff Physician Cardiology 07/15/21 Carla Burdick MD [address] [place], [place] 448111 Primary Staff Physician Cardiology 03/03/22 Sonny Lund MD [address] [place], [place] 727791 Hematology/Oncology 04/22/22 Clinical Services Specialist Relationship Specialty Start Date End Date Doreen Le PA-C [address] [place] [address] PCP - General Family Medicine 11/26/16 No, Referral Referring 01/31/[place] [address] [place], [place] [id number] Primary Staff Physician Cardiology 07/15/21 Carla Burdick MD [address] [facility] [place] [place] 000591 Primary Staff Physician Cardiology 03/03/22 Sonny Lund MD [address] [place] 472[address] Hematology/Oncology 04/22/22 Clinical Services Specialist Relationship Specialty Start Date End Date Doreen Le PA-C [address] [place], [place] 745971 PCP - General Family Medicine 11/26/16 No, Referral Referring 01/31/19 [place] [address] [place] [address] Primary Staff Physician Cardiology 07/15/21 Carla Burdick MD [address] [place], [place] 331931 Primary Staff Physician Cardiology 03/03/22 Sonny Lund MD [address] [place], [place] [address] Hematology/Oncology 04/22/22 Clinical Services Specialist Relationship Specialty Start Date End Date Doreen Le PA-C [address] [place], [place] 041891 PCP - General Family Medicine 11/26/16 No, Referral Referring 01/31/19 [place] [address] [place] [address] Primary Staff Physician Cardiology 07/15/21 Carla Burdick MD [address] 284181 Primary Staff Physician Cardiology 03/03/22 Sonny Lund MD [address] [place], [place] 890471 Hematology/Oncology 04/22/22 Clinical Services Specialist Relationship Specialty Start Date End Date Doreen Le PA-C [address] [place], [place] 261051 PCP - General Family Medicine 11/26/16 No, Referral Referring 01/31/19 [place] [address] [place] [address] Primary Staff Physician Cardiology 07/15/21 Carla Burdick MD [address] [place], [place] 748361 Primary Staff Physician Cardiology 03/03/22 Sonny Lund MD [address] [place] [address] Hematology/Oncology 04/22/22 Clinical Services Specialist Relationship Specialty Start Date End Date Doreen Le PA-C [address] [place], [place] 752111 PCP - General Family Medicine 11/26/16 No, Referral Referring 01/31/19 [place] [address] [place], [place] 0833526 Primary Staff Physician Cardiology 07/15/21 Carla Burdick MD [address] [place] [address] Primary Staff Physician Cardiology 03/03/22 Sonny Lund MD [address] [facility] [place] 477[address] Hematology/Oncology 04/22/22 Clinical Services Specialist Relationship Specialty Start Date End Date Doreen Le PA-C [address] [place], [place] 334871 PCP - General Family Medicine 11/26/16 No, Referral Referring 01/31/19 [place] [address] [place], [place] 5865526 Primary Staff Physician Cardiology 07/15/21 Carla Burdick MD [address] [place], [place] 671221 Primary Staff Physician Cardiology 03/03/22 Sonny Lund MD [address] [place], [place] 891101 Hematology/Oncology 04/22/22 Clinical Services Specialist Relationship Specialty Start Date End Date Doreen Le PA-C [address] [place] [address] PCP - General Family Medicine 11/26/16 No, Referral Referring 01/31/19 [place] [address] [place], [place] 7881126 Primary Staff Physician Cardiology 07/15/21 Carla Burdick MD [address] [facility] [place] 001691 Primary Staff Physician Cardiology 03/03/22 Sonny Lund MD [address] [place] [address] Hematology/Oncology 04/22/22 Clinical Services Specialist Relationship Specialty Start Date End Date Doreen Le PA-C [address] [place] [address] PCP - General Family Medicine 11/26/16 No, Referral Referring 01/31/19 [place] [address] [place], [place] 1707126 Primary Staff Physician Cardiology 07/15/21 Carla Burdick MD [address] [place], [place] 638411 Primary Staff Physician Cardiology 03/03/22 Sonny Lund MD [address] [facility] [place] [address] Hematology/Oncology 04/22/22 Clinical Services Specialist Relationship Specialty Start Date End Date Doreen Le PA-C [address] [place] [address] PCP - General Family Medicine 11/26/16 No, Referral Referring 01/31/19 [place] [address] [place], [place] 9395026 Primary Staff Physician Cardiology 07/15/21 Carla Burdick MD [address] [facility] [place] [address] Primary Staff Physician Cardiology 03/03/22 Sonny Lund MD [address] [facility] [place] 065061 Hematology/Oncology 04/22/22 Clinical Services Specialist Relationship Specialty Start Date End Date Doreen Le PA-C [address] [place], [place] 231201 PCP - General Family Medicine 11/26/16 No, Referral Referring 01/31/19 [place] [address] [place] [address] Primary Staff Physician Cardiology 07/15/21 Carla Burdick MD [address] [place], [place] 859091 Primary Staff Physician Cardiology 03/03/22 Sonny Lund MD [address] [facility] [place] [address] Hematology/Oncology 04/22/22 Clinical Services Specialist Relationship Specialty Start Date End Date Doreen Le PA-C [address] [place] [address] PCP - General Family Medicine 11/26/16 No, Referral Referring 01/31/19 [place] [address] [place], [place] 9363026 Primary Staff Physician Cardiology 07/15/21 Carla Burdick MD [address] [facility] [place] 347491 Primary Staff Physician Cardiology 03/03/22 Sonny Lund MD [address] [facility] [place] [address] Hematology/Oncology 04/22/22 Clinical Services Specialist Relationship Specialty Start Date End Date Doreen Le PA-C [address] [place] [address] PCP - General Family Medicine 11/26/16 No, Referral Referring 01/31/19 [place] [address] [place], [place] 2306926 Primary Staff Physician Cardiology 07/15/21 Carla Burdick MD [address] [place], [place] 184291 Primary Staff Physician Cardiology 03/03/22 Sonny Lund MD [address] [place] [address] Hematology/Oncology 04/22/22 Clinical Services Specialist Relationship Specialty Start Date End Date Doreen Le PA-C [address] [place] [address] PCP - General Family Medicine 11/26/16 No, Referral Referring 01/31/19 [place] [address] [place], [place] 7715326 Primary Staff Physician Cardiology 07/15/21 Carla Burdick MD [address] [facility] [place] 84936691 Primary Staff Physician Cardiology 03/03/22 Sonny Lund MD [address] [facility] [place], [place] 685041 Hematology/Oncology 04/22/22 Clinical Services Specialist Relationship Specialty Start Date End Date Doreen Le PA-C [address] [place], [place] 188561 PCP - General Family Medicine 11/26/16 No, Referral Referring 01/31/19 [place] [address] [place], [place] 8776626 Primary Staff Physician Cardiology 07/15/21 Carla Burdick MD [address] [place], [place] 218401 Primary Staff Physician Cardiology 03/03/22 Sonny Lund MD [address] [place], [place] 260291 Hematology/Oncology 04/22/22 Clinical Services Specialist Relationship Specialty Start Date End Date Doreen Le PA-C [address] [place] [address] PCP - General Family Medicine 11/26/16 No, Referral Referring 01/31/19 [place] [address] [place], [place] 8250226 Primary Staff Physician Cardiology 07/15/21 Carla Burdick MD [address] [place], [place] 43987691 Primary Staff Physician Cardiology 03/03/22 Sonny Lund MD [address] [place], [place] 753201 Hematology/Oncology 04/22/22 Clinical Services Specialist Relationship Specialty Start Date End Date Doreen Le PA-C [address] [place] [address] PCP - General Family Medicine 11/26/16 No, Referral Referring 01/31/19 [place] [address] [place], [place] 5374426 Primary Staff Physician Cardiology 07/15/21 Carla Burdick MD [address] [place], [place] 373361 Primary Staff Physician Cardiology 03/03/22 Sonny Lund MD [address] [place] [address] Hematology/Oncology 04/22/22 Clinical Services Specialist Relationship Specialty Start Date End Date Doreen Le PA-C [address] [place] [address] PCP - General Family Medicine 11/26/16 No, Referral Referring 01/31/19 [place] [address] [place], [place] 8163426 Primary Staff Physician Cardiology 07/15/21 Carla Burdick MD [address] [place], [place] 746541 Primary Staff Physician Cardiology 03/03/22 Sonny Lund MD [address] [facility] [place] 630841 Hematology/Oncology 04/22/22 Clinical Services Specialist Relationship Specialty Start Date End Date Doreen Le PA-C [address] [place], [place] 147411 PCP - General Family Medicine 11/26/16 No, Referral Referring 01/31/19 [place] [address] [place], [place] 1895026 Primary Staff Physician Cardiology 07/15/21 Carla Burdick MD [address] [place], [place] 351561 Primary Staff Physician Cardiology 03/03/22 Sonny Lund MD [address] [place], [place] 766861 Hematology/Oncology 04/22/22 Clinical Services Specialist Relationship Specialty Start Date End Date Doreen Le PA-C [address] [place] [address] PCP - General Family Medicine 11/26/16 No, Referral Referring 01/31/19 [place] [address] [place], [place] 9970926 Primary Staff Physician Cardiology 07/15/21 Carla Burdick MD [address] [place], [place] 822801 Primary Staff Physician Cardiology 03/03/22 Sonny Lund MD [address] [facility] [place] [address] Hematology/Oncology 04/22/22 Clinical Services Specialist Relationship Specialty Start Date End Date Doreen Le PA-C [address] [place], [place] 823571 PCP - General Family Medicine 11/26/16 No, Referral Referring 01/31/19 [place] [address] [place], [place] 2136026 Primary Staff Physician Cardiology 07/15/21 Carla Burdick MD [address] [place], [place] 073441 Primary Staff Physician Cardiology 03/03/22 Sonny Lund MD [address] [place], [place] 678861 Hematology/Oncology 04/22/22 Clinical Services Specialist Relationship Specialty Start Date End Date Doreen Le PA-C [address] [place] [address] PCP - General Family Medicine 11/26/16 No, Referral Referring 01/31/19 [place] [address] [place], [place] 4610826 Primary Staff Physician Cardiology 07/15/21 Carla Burdick MD [address] [place], [place] 221241 Primary Staff Physician Cardiology 03/03/22 Sonny Lund MD [address] [facility] [place] 1967[address] Hematology/Oncology 04/22/22 Clinical Services Specialist Relationship Specialty Start Date End Date Doreen Le PA-C [address] [place], [place] 060011 PCP - General Family Medicine 11/26/16 No, Referral Referring 01/31/19 [place] [address] [place], [place] 8738826 Primary Staff Physician Cardiology 07/15/21 Carla Burdick MD [address] [place], [place] 406851 Primary Staff Physician Cardiology 03/03/22 Sonny Lund MD [address] [place], [place] 035141 Hematology/Oncology 04/22/22 Clinical Services Specialist Relationship Specialty Start Date End Date Doreen Le PA-C [address] [place], [place] 233721 PCP - General Family Medicine 11/26/16 No, Referral Referring 01/31/19 [place] [address] [place], [place] 9435426 Primary Staff Physician Cardiology 07/15/21 Carla Burdick MD [address] [facility] [place] [place] 993351 Primary Staff Physician Cardiology 03/03/22 Sonny Lund MD [address] [place], [place] 874841 Hematology/Oncology 04/22/22 Clinical Services Specialist Relationship Specialty Start Date End Date Doreen Le PA-C [address] [place], [place] 007011 PCP - General Family Medicine 11/26/16 No, Referral Referring 01/31/19 [place] [address] [place] [address] Primary Staff Physician Cardiology 07/15/21 Carla Burdick MD [address] [place], [place] 439501 Primary Staff Physician Cardiology 03/03/22 Sonny Lund MD [address] [place], [place] 269981 Hematology/Oncology 04/22/22 Clinical Services Specialist Relationship Specialty Start Date End Date Doreen Le PA-C [address] [place], [place] 027541 PCP - General Family Medicine 11/26/16 No, Referral Referring 01/31/[place] [address] [place], [place] 7844826 Primary Staff Physician Cardiology 07/15/21 Carla Burdick MD [address] [place], [place] 291171 Primary Staff Physician Cardiology 03/03/22 Sonny Lund MD [address] [place] [address] Hematology/Oncology 04/22/22 Clinical Services Specialist Relationship Specialty Start Date End Date Doreen Le PA-C [address] [place], [place] 659221 PCP - General Family Medicine 11/26/16 No, Referral Referring 01/31/19 [place] [address] [place], [place] 2689026 Primary Staff Physician Cardiology 07/15/21 Clinical Services Specialist Relationship Specialty Start Date End Date Doreen Le PA-C [address] [place], [place] 516511 PCP - General Family Medicine 11/26/16 No, Referral Referring 01/31/19 [place] [address] [facility] [place] [place] 152[address]26 Primary Staff Physician Cardiology 07/15/21 Carla Burdick MD [address] [place] [address] Primary Staff Physician Cardiology 03/03/22 Sonny Lund MD [address] [place] [address] Hematology/Oncology 04/22/22 Clinical Services Specialist Relationship Specialty Start Date End Date Dianne Le PA-C PCP - General Family Medicine 11/26/16 No, Referral Referring 01/31/[place] [address] [place] [address] Primary Staff Physician Cardiology 07/15/21 Carla Burdick MD [address] [place], [place] 906931 Primary Staff Physician Cardiology 03/03/22 Sonny Lund MD [address] [place] [address] Hematology/Oncology 04/22/22 Deysi Collazo APRN.TWISTHAND [address] [place] [address] Director Of Estate Family Medicine 06/09/24 Sandra Bell APRN.TWISTHAND [address] [place] [address] Director Of Estate [facility] 06/09/24 Clinical Services Specialist Relationship Specialty Start Date End Date No, Referral Referring 01/31/19 [place] [address] [place] [address] Primary Staff Physician Cardiology 07/15/21 Carla Burdick MD [address] [place] [address] Primary Staff Physician Cardiology 03/03/22 Sonny Lund MD [address] [place] 656221 Hematology/Oncology 04/22/22 Deysi Collazo APRN.TWISTHAND [address] [place], [place] 137990 [phone] [facility]24 Sandra Bell FACS TEACHER.TWISTHAND [address] [place], [place] 780551 [facility] 06/09/24 Clinical Services Specialist Relationship Specialty Start Date End Date Deysi Collazo, FACS TEACHER.TWISTHAND [address] [place] [address] PCP - General Family Medicine 07/07/24 No, Referral Referring 01/31/19 [place] [address] [place] [address] Primary Staff Physician Cardiology 07/15/21 Carla Burdick MD [address] [place] [address] Primary Staff Physician Cardiology 03/03/22 Sonny Lund MD [address] [facility] [place] [address] Hematology/Oncology 04/22/22 Deysi Collazo APRN.TWISTHAND [address] [place] [address] [facility] 06/09/24 Sandra Bell FACS TEACHER.TWISTHAND [address] [place] [address] [facility] 06/09/24 Clinical Services Specialist Relationship Specialty Start Date End Date Deysi Collazo FACS TEACHER.TWISTHAND [address] [place] [address] PCP - General Family Medicine 07/07/24 No, Referral Referring 01/31/19 [place] [address] [place], [place] 5993326 Primary Staff Physician Cardiology 07/15/21 Carla Burdick MD [address] [facility] [place] 079[address] Primary Staff Physician Cardiology 03/03/22 Sonny Lund MD [address] [facility] [place] 959511 Hematology/Oncology 04/22/22 Deysi Collazo APRN.TWISTHAND [address] [place], [place] 057001 Director Of Estate Family [facility] 06/09/24 Sandra Bell FACS TEACHER.TWISTHAND [address] [place], [place] 430261 [facility] 06/09/24 Clinical Services Specialist Relationship Specialty Start Date End Date Deysi Collazo APRN.TWISTHAND [address] [place], [place] 715801 PCP - General Family Medicine 07/07/24 No, Referral Referring 01/31/19 [place] [address] [place] [address] Primary Staff Physician Cardiology 07/15/21 Carla Burdick MD [address] [place], [place] 028501 Primary Staff Physician Cardiology 03/03/22 Sonny Lund MD [address] [place], [place] [address] Hematology/Oncology 04/22/22 Deysi Collazo APRN.TWISTHAND [address] [place] [address] [facility] 06/09/24 Sandra Bell APRN.TWISTHAND [address] [facility] [place] [address] [facility] 06/09/24 Clinical Services Specialist Relationship Specialty Start Date End Date Deysi Collazo APRN.TWISTHAND [address] [place] [address] PCP - General Family Medicine 07/07/24 No, Referral Referring 01/31/19 [place] [address] [place], [place] 5621526 Primary Staff Physician Cardiology 07/15/21 Carla Burdick MD [address] [place] [address] Primary Staff Physician Cardiology 03/03/22 Sonny Lund MD [address] [place] [address] Hematology/Oncology 04/22/22 Deysi Collazo APRN.TWISTHAND [address] [place] [place] [address] [facility] 06/09/24 Sandra Bell APRN.TWISTHAND [address] [place] [address] Director Of Estate Family [facility] 06/09/24 Clinical Services Specialist Relationship Specialty Start Date End Date Deysi Collazo APRN.TWISTHAND [address] [place] [address] PCP - General Family Medicine 07/07/24 No, Referral Referring 01/31/19 [place] [address] [place], [place] 4850626 Primary Staff Physician Cardiology 07/15/21 Carla Burdick MD [address] [facility] [place] [address] Primary Staff Physician Cardiology 03/03/22 Sonny Lund MD [address] [place] [address] Hematology/Oncology 04/22/22 Deysi Collazo APRN.TWISTHAND [address] [place] [address] Director Of Estate Family [facility] 06/09/24 Sandra Bell APRN.TWISTHAND [address] [place] [address] Director Of Estate [facility] 06/09/24 Clinical Services Specialist Relationship Specialty Start Date End Date Deysi Collazo APRN.TWISTHAND [address] [place] [address] PCP - General Family Medicine 07/07/24 No, Referral Referring 01/31/19 [place] [address] [place], [place] 0632026 Primary Staff Physician Cardiology 07/15/21 Carla Burdick MD [address] [place], [place] 305541 Primary Staff Physician Cardiology 03/03/22 Sonny Lund MD [address] [place] [address] Hematology/Oncology 04/22/22 Deysi Collazo APRN.TWISTHAND [address] [place] [address] Director Of Estate Family [facility] 06/09/24 Sandra Bell FACS TEACHER.TWISTHAND [address] [place] [address] Director Of Estate Family [facility] 06/09/24 Clinical Services Specialist Relationship Specialty Start Date End Date Deysi Collazo APRN.TWISTHAND [address] [place], [place] 737801 PCP - General Family Medicine 07/07/24 No, Referral Referring 01/31/19 [place] [address] [place] [address] Primary Staff Physician Cardiology 07/15/21 Carla Burdick MD [address] [place] [address] Primary Staff Physician Cardiology 03/03/22 Sonny Lund MD [address] [place] [address] Hematology/Oncology 04/22/22 Deysi Collazo APRN.TWISTHAND [address] [place] [address] Director Of Estate Family Medicine 06/09/24 Sandra Bell FACS TEACHER.TWISTHAND [address] [place] [address] [facility] 06/09/24 Clinical Services Specialist Relationship Specialty Start Date End Date Deysi Collazo APRN.TWISTHAND [address] [place] [address] PCP - General Family Medicine 07/07/24 No, Referral Referring 01/31/19 [place] [address] [place], [place] 1154026 Primary Staff Physician Cardiology 07/15/21 Carla Burdick MD [address] [place] [address] Primary Staff Physician Cardiology 03/03/22 Sonny Lund MD [address] [place] [address] Hematology/Oncology 04/22/22 Deysi Collazo APRN.TWISTHAND [address] [place] [address] Director Of Estate Family [facility] 06/09/24 Sandra Bell FACS TEACHER.TWISTHAND [address] [place], [place] 77732400 [phone] [facility] 06/09/[facility] Clinical Services Specialist Relationship Specialty Start Date End Date Deysi Collazo, FACS TEACHER.TWISTHAND [address] [place], [place] 134291 PCP - General Family Medicine 07/07/24 No, Referral Referring 01/31/19 [place] [address] [place] [address] Primary Staff Physician Cardiology 07/15/21 Carla Burdick MD [address] [place], [place] 22192691 Primary Staff Physician Cardiology 03/03/22 Sonny Lund MD [address] [place] [address] Hematology/Oncology 04/22/22 Deysi Collazo, FACS TEACHER.TWISTHAND [address] [place] [address] [facility] 06/09/24 Sandra Bell, FACS TEACHER.TWISTHAND [address] [place], [place] 402231 [facility] 06/09/24 Clinical Services Specialist Relationship Specialty Start Date End Date Deysi Collazo, FACS TEACHER.TWISTHAND [address] [place], [place] 798793 [phone] PCP - General Family Medicine 07/07/24 No, Referral Referring 01/31/19 [place] [address] [place], [place] 7718026 Primary Staff Physician Cardiology 07/15/21 Carla Burdick MD [address] [place] [address] Primary Staff Physician Cardiology 03/03/22 Sonny Lund MD [address] [place] [address] Hematology/Oncology 04/22/22 Deysi Collazo FACS TEACHER.TWISTHAND [address] [place] [address] [facility]/24 Sandra Bell FACS TEACHER.TWISTHAND [address] [place] [address] [facility] 06/09/24 Clinical Services Specialist Relationship Specialty Start Date End Date Deysi Collazo APRN.TWISTHAND [address] [place] [address] PCP - General Family Medicine 07/07/24 No, Referral Referring 01/31/19 [place] [address] [place] [address] Primary Staff Physician Cardiology 07/15/21 Carla Burdick MD [address] [place] [address] Primary Staff Physician Cardiology 03/03/22 Sonny Lund MD [address] [place] [address] Hematology/Oncology 04/22/22 Deysi Collazo, FACS TEACHER.TWISTHAND [address] [place] [address] Director Of Estate Family Medicine 06/09/24 Sandra Bell APRN.TWISTHAND [address] [place] [address] Director Of Estate Family Medicine 06/09/24 Clinical Services Specialist Relationship Specialty Start Date End Date Deysi Collazo APRN.TWISTHAND [address] [place] [address] PCP - General Family Medicine 07/07/24 No, Referral Referring 01/31/19 [place] [address] [place], [place] 9024026 Primary Staff Physician Cardiology 07/15/21 Carla Burdick MD [address] [place] [address] Primary Staff Physician Cardiology 03/03/22 Deysi Collazo APRN.TWISTHAND [address] [place] [address] Director Of Estate Family Medicine 06/09/24 Sandra Bell APRN.TWISTHAND [address] [place] [address] Director Of Estate Family [facility] 06/09/24 Clinical Services Specialist Relationship Specialty Start Date End Date Deysi Collazo APRN.TWISTHAND [address] [place] [address] PCP - General Family Medicine 07/07/24 No, Referral Referring 01/31/[place] [address] [address] [place], [place] 0954026 Primary Staff Physician Cardiology 07/15/21 Carla Burdick MD [address] [place], [place] 520006 [phone] Primary Staff Physician Cardiology 03/03/22 Deysi Collazo APRN.TWISTHAND [address] [place] [address] Director Of Estate Family [facility] 06/09/24 Sandra Bell APRN.TWISTHAND [address] [place] [address] [facility] 06/09/24 Clinical Services Specialist Relationship Specialty Start Date End Date Deysi Collazo APRN.TWISTHAND [address] [place] [address] PCP - General Family Medicine 07/07/24 No, Referral Referring 01/31/19 [place] [address] [place], [place] 2539326 Primary Staff Physician Cardiology 07/15/21 Carla Burdick MD [address] [place], [place] 668[address] [phone] Primary Staff Physician Cardiology 03/03/22 Deysi Collazo APRN.TWISTHAND [address] [place] [address] [facility] 06/09/24 Sandra Bell FACS TEACHER.TWISTHAND [address] [place] [address] [facility] 06/09/24 Clinical Services Specialist Relationship Specialty Start Date End Date Deysi Collazo APRN.TWISTHAND [address] [place] [address] PCP - General Family Medicine 07/07/24 No, Referral Referring 01/31/19 [place] [address] [place], [place] 7930226 Primary Staff Physician Cardiology 07/15/21 Carla Burdick MD [address] [place] [address] Primary Staff Physician Cardiology 03/03/22 Deysi Collazo APRN.TWISTHAND [address] [place] [address] [facility] 06/09/24 Sandra Bell APRN.TWISTHAND [address] [place] [address] [facility] 06/09/24 Team Status: Active Member Role/Relationship Status Dates Deysi Collazo AUTO WHEEL ALIGNMENT SPECIALIST, AUTO WHEEL ALIGNMENT SPECIALIST-C Primary Care Provider Active Team Status: Active Member Role/Relationship Status Dates Deysi Collazo AUTO WHEEL ALIGNMENT SPECIALIST, AUTO WHEEL ALIGNMENT SPECIALIST-C Primary Care Provider Active Start: January 07, 2025 Dr. Luis Armando Harry MD Emergency Provider Active Sta rt: January 07, 2025 Dr. Radha Heller MD Admit Provider Active Star t: January 07, 2025 Dr. Radha Heller MD Attending Provider Active Start: January 07, 2025 Team Status: Inactive Member Role/Relationship Status Dates Deysi Collazo AUTO WHEEL ALIGNMENT SPECIALIST, AUTO WHEEL ALIGNMENT SPECIALIST-C Primary Care Provider Active Start: January 07, [...] Active Member Role/Relationship Status Dates Deysi Collazo AUTO WHEEL ALIGNMENT SPECIALIST, AUTO WHEEL ALIGNMENT SPECIALIST-C Primary Care Provider Active Start: January 08, 2025 Dr. Abundio Turcios MD Attending Provider Active S tart: January 08, 2025 Team Status: Active Member Role/Relationship Status Dates Deysi Collazo AUTO WHEEL ALIGNMENT SPECIALIST, AUTO WHEEL ALIGNMENT SPECIALIST-C Primary Care Provider Active Start: January 08, 2025 Dr. Yaniv Masters MD Attending Provider Active S tart: January 08, 2025 Team Status: Active Member Role/Relationship Status Dates Deysi Collazo AUTO WHEEL ALIGNMENT SPECIALIST, AUTO WHEEL ALIGNMENT SPECIALIST-C Primary Care Provider Active Start: January 08, [...] Active Member Role/Relationship Status Dates Deysi Collazo AUTO WHEEL ALIGNMENT SPECIALIST, AUTO WHEEL ALIGNMENT SPECIALIST-C Primary Care Provider Active Start: January 09, [...] Active Member Role/Relationship Status Dates Deysi Collazo AUTO WHEEL ALIGNMENT SPECIALIST, AUTO WHEEL ALIGNMENT SPECIALIST-C Primary Care Provider Active Start: January 10, [...] Active Member Role/Relationship Status Dates Deysi Collazo AUTO WHEEL ALIGNMENT SPECIALIST, AUTO WHEEL ALIGNMENT SPECIALIST-C Primary Care Provider Active Start: January 11, [...] January 23, 2025 End: January 23, 2025 Clinical Services Specialist Relationship Specialty Start Date End Date Deysi Collazo APRN.[employer]IST[employer] [address] [place], [place] [id number] PCP - General Family Medicine 07/07/24 No, Referral Referring 01/31/19 [place] [address] [place], [place] [id number] Primary Staff Physician Cardiology 07/15/21 Carla Burdick MD [address] [place], [place] [address] Primary Staff Physician Cardiology 03/03/22 Deysi Collazo APRN.[employer]ISTHAND [address] [place], [place] [id number] Director Of Estate Family Medicine 06/09/24 Sandra Bell APRN.TWISTHAND [address] [place] [address] Director Of Estate Family Medicine 06/09/24 Team Status: Active Member Role/Relationship Status Dates Deysi Collazo AUTO WHEEL ALIGNMENT SPECIALIST, AUTO WHEEL ALIGNMENT SPECIALIST-C Primary Care Provider Active Start: January 08, [...] February 13, 2025 End: February 13, 2025 Clinical Services Specialist Relationship Specialty Start Date End Date Deysi Collazo APRN.[employer] [address] [place], [place] [id number] PCP - General Family Medicine 07/07/24 No, Referral Referring 01/31/19 [place] [address] [place], [place] [id number] Primary Staff Physician Cardiology 07/15/21 Carla Burdick MD [address] [place], [place] [address] Primary Staff Physician Cardiology 03/03/22 Deysi Collazo APRN.[employer]ISTHAND [address] [place] [address] Director Of Estate [facility] 06/09/24 Sandra Bell APRN.TWISTHAND [address] [place] [address] Director Of Estate [facility] 06/09/24 Team Status: Inactive Member Role/Relationship Status [...] Inactive Member Role/Relationship Status Dates Deysi Collazo AUTO WHEEL ALIGNMENT SPECIALIST, AUTO WHEEL ALIGNMENT SPECIALIST-C Primary care physician Active Start: January 07, [...] Active Member Role/Relationship Status Dates Deysi Collazo AUTO WHEEL ALIGNMENT SPECIALIST, AUTO WHEEL ALIGNMENT SPECIALIST-C Primary care physician Active Start: January 08, 2025 Dr. Abundio Turcios MD Attending physician Active Start: January 08, 2025 Dr. Carla Ha DO Referring Provider Active Start: January 08, 2025 Team Status: Active Member Role/Relationship Status Dates Deysi Collazo AUTO WHEEL ALIGNMENT SPECIALIST, AUTO WHEEL ALIGNMENT SPECIALIST-C Primary care physician Active Start: January 08, 2025 Dr. Yaniv Masters MD Attending physician Active Start: January 08, 2025 Team Status: Active Member Role/Relationship Status Dates Deysi Hadon AUTO WHEEL ALIGNMENT SPECIALIST, AUTO WHEEL ALIGNMENT SPECIALIST-C Primary care physician Active Start: January 08, [...] Active Member Role/Relationship Status Dates Deysi Collazo AUTO WHEEL ALIGNMENT SPECIALIST, AUTO WHEEL ALIGNMENT SPECIALIST-C Primary care physician Active Start: January 09, [...] Active Member Role/Relationship Status Dates Deysi Collazo AUTO WHEEL ALIGNMENT SPECIALIST, AUTO WHEEL ALIGNMENT SPECIALIST-C Primary care physician Active Start: January 10, [...] Member Role/Relationship Status Dates Deysi Collazo NP, AUTO WHEEL ALIGNMENT SPECIALIST-C Primary care physician Active Start: January 11, [...] Active Member Role/Relationship Status Dates Deysi Collazo AUTO WHEEL ALIGNMENT SPECIALIST, AUTO WHEEL ALIGNMENT SPECIALIST-C Primary care physician Active Start: January 11, [...] 2025 End: March 04, 2025 Dr. Ebony Cerraot MD Attending physician Active Start: March 01, [...] 2025 End: May 07, 2025 Cookie Bowman AUTO WHEEL ALIGNMENT SPECIALIST, AUTO WHEEL ALIGNMENT SPECIALIST-C Attending physician Active Start: May 07, 2025 [...] Status: Active Member Role/Relationship Status Dates Dr. iVncent Flores [...] 2025 End: May 07, 2025 Cookie Bowman AUTO WHEEL ALIGNMENT SPECIALIST, AUTO WHEEL ALIGNMENT SPECIALIST-C Attending physician Active Start: May 07, 2025 [...] BE BASED ON THE PRIMARY CLINICAL RECORDS. [facility] [employer] [facility]. provides no warranty or guarantee of the accuracy or completeness of information in this document.
--- OUTSIDE RECORDS SUMMARY | 2025-06-17 18:33 | XMS RPT_ITS | CCD ---
Author Organization [facility] CliniSymt Care Team Providers Care Team Automobile Assembler Name Role Phone Cruz Le Primary [...] Care Provider Yin Agustin MD Unavailable [phone] Helen CAMACHO, Sheridan Collins Unavailable Unavailable Carla [...] Unavailable Unavailable Yin Agustin MD Unavailable [phone] Carla Burdick MD Unavailable Doreen Le PA-C Primary Care Provider Doreen LE Referring Unavailable Doreen LE Primary Care Unavailable Doreen LE Primary Care Unavailable Carla Burdick MD Unavailable Sonny Lund MD Unavailable Dianne Le PA-C Primary Care Provider Unavailable Haagen OPTICAL MANAGER.GRAVEDIGGER, Deysi Unavailable Suppan OPTICAL MANAGER.GRAVEDIGGER, Sandra A Unavailable Sonny Lund MD Unavailable Haagen OPTICAL MANAGER.GRAVEDIGGER, Deysi Primary Care Provider Sonny Lund MD [...] Unavailable HAAGEN, DEYSI Primary Care Unavailable Haagen FOUNDRY WORKER-C, Deysi Primary Care Provider Piero UGARTE, Dr. [...] Unavailable Nolan UGARTE, Dr. Portillo Other Provider [phone] Mo UGARTE, Yamileth Other Provider Unavailable Dr. Josefina Arrieta DO Other Provider Ab UGARTE, Dr. Whitehead Other Provider Javan UGARTE, Dr. Balderrama Other Provider Matheus UGARTE, Dr. Grimes Other Provider Dr. Marty Hopkins MD Other Provider Scott UGARTE, Dr. Lujan Other Provider Alvaro UGARTE, Dr. Garcia Other Provider [phone] Karyna Gates MD Other Provider Angel Luis [...] Dr. Vincent Cardozo Primary Care Provider [phone] Ha DO, Dr. Malave Referring Provider Jesika Flores MD, Dr. Vincent Cardozo Attending Provider Dr. Juan Diego Huynh MD Attending Provider Wilman CURRY, Dr. Osborne Referring Provider Mark UGARTE, Dr. Vincent Cardozo Referring Provider [phone] Pau Davis Attending Provider Unavailable Bird UGARTE, Dr. Curran Emergency Provider Bharat FOUNDRY WORKER-C, [facility] Primary Care Provider Piero UGARTE, Dr. Durán [...] Provider Dr. Tacos Edouard MD Other Provider [phone] Matheus UGARTE, Dr. Grimes Other Provider Sandeep [...] Dr. Dianne Stovall DO Other Provider Zeferino GUARTE, Dr. Luna Attending Provider Zeferino UGARTE, Dr. Luna Referring Provider Dr. Vincent Flores MD, Chi Primary Care Provider [phone] Mark UGARTE, Dr. Vincent Cardozo Attending Provider [...] Hari UGARTE, Dr. Larios Referring Provider Bharat FOUNDRY WORKER-C, Deysi Primary Care Physician Piero UGARTE, Dr. Durán Emergency Department Physician Arron UGARTE, Dr. Garcia Admitting Physician Arron UGARTE, Dr. Garcia Nurse Practitioner Wilman CURRY, Dr. Osborne Attending Physician Zeferino UGARTE, Dr. Luna Nurse Practitioner Karolina UGARTE, Dr. Mcbride Attending Physician Sonam UGARTE, Dr. Purvis Attending Physician Mirza UGARTE, Teo Nurse Practitioner Unavailable Nolan UGARTE, Dr. Portillo Nurse Practitioner [phone] Mo UGARTE, Yamileth Nurse Practitioner Unavail zacarias Arrieta DO, Dr. Rocha Nurse Practitioner Ab UGARTE, Dr. Whitehead Nurse Practitioner Javan UGARTE, Dr. Balderrama Nurse Practitioner Matheus UGARTE, Dr. Grimes Nurse Practitioner Dr. Marty Hopkins MD Nurse Practitioner [phone] Tai Chavez MD Nurse Practitioner Alvaro UGARTE, Dr. Garcia Nurse Practitioner Karyna Gates MD Nurse Practitioner [phone] Angel Luis UGARTE, Dr. Mosqueda Nurse Practitioner [...] Dr. Ric Noriega MD Referring Provider Bharat FOUNDRY WORKER-C, [facility] Primary Care Physician Dr. Luis Armando Harry MD Emergency Department Physician Arron UGARTE, Dr. Garcia Admitting Physician Arron UGARTE, Dr. Garcia Nurse Practitioner Wilman CURYR, Dr. Osborne Attending Physician Wilman CURRY, Dr. [...] Mark, Vincent Chi Primary Care Unavailable Sonam Wanda Referring Unavailable Yaniv Masters Attending Unavailable Mark, [...] Unavailable Haagen, Deysi Primary Care Unavailable Sonam, Wanda Attending Unavailable Mark, Vincent Chi Primary Care [...] Mark, Vincent Chi Primary Care Unavailable Sonam, Wanda Attending Unavailable Sonam, Wanda Referring Unavailable Mark, Vincent Chi Primary Care Unavailable Mark, Vincent Chi Attending Unavailable Allergies Allergy Classification Reported Allergen(s) Allergy Type Date of Onset Reaction(s) Facility (2 sources) metFORMIN Drug Allergy 4 [facility] (20 sources) Protamines; Translations: [PROTAMINE] Drug Allergy 2 Anaphylaxis [facility] Work Phone: (20 sources) Propofol; Translations: [PROPOFOL] Drug Allergy 3 Other: See Comments [facility] (1 source) Propofol Drug Allergy 5 [facility] Repository Medications Current Medications Medication Drug [...] once daily. Take 2 tablets by mo [facility] once daily. Take 1 tablet [...] in NaCl (PF) 0.9% 10 mL injection (Thinkglue) polysaccharide iron complex 150 mg oral capsule [...] Drug Class(es) Dates Sig (Normalized) Sig (Original) [id number] actuat albuterol 0.09 mg/actuat metered dose [...] on above: Take 1 capsule by mo [facility] once daily. clopidogrel 75 mg [...] 5 days. Take 2 tablets by mo [facility] once daily. iv contrast (will [...] on above: Take 1 capsule by mo [facility] once daily. pantoprazole 40 mg [...] on above: Take 2 tablets by mo [facility] once daily for 5 days. 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 medical therapy] Onset: [...] sources) Long-term current use of anticoagulant; Translations: [ichthyology teacher (current) use of anticoagulants] Onset: 4 01-18-2019 Episodic Other aftercare (20 sources) 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; Translations: [intermediate (current) use of antithrombotics/antipl atelets] Onset: 2 03-21-2022 Episodic Other aftercare (20 sources) Acquired platelet function disorder; Translations: [intermediate (current) use of antithrombotics/antipl atelets] Onset: 2 [...] Visit Reporton Cardiology Visit Report Normal [facility] Absolute lymphocyte countOrd ered By: Vincent Flores on 05-02-2025 Lymphocytes Auto (Unsp spec) [#/Vol] 1.70 10*3/uL 0.83-4.51 [facility] Anion gap in Serum or Plasma Ordered By: Vincent Flores on 05-02-2025 Anion gap [Moles/Vol] 15 mmol/L - [facility] Automated lymphocyte count a s percentage of total leukocytesOrdered By: Vincent Flores on 05-02-2025 Lymphocytes/100 WBC Auto (Unsp spec) 25.9 % - [facility] BUN/creatinine ratioOrdered By: Vincent Flores on 05-02-2025 Urea nitrogen/Creatinine [Mass ratio] 39.5 mg/mg High 10- [facility] Basophil percentageOrdered B y: Vincent Flores on 05-02-2025 Basophils/100 WBC (Bld) 0.6 % 0-1 [facility] Bilirubin, totalOrdered By: Vincent Flores on 05-02-2025 Bilirubin [Mass/Vol] 0.96 mg/dL 0.00-1.30 [facility] CBC W/Diff, Automatedon 04-05 Anisocytosis Ql (Bld) 1+ Normal [facility] Comment on above: Performed By: #### L 501.9527, L500.4050, L100.0100, L506.1001 ####[facility] [address] [place], [place], [id number] Carbon dioxide, total [Moles /volume] in Central venous bloodOrdered By: Vincent Flores on 05-02-2025 CO2 [Moles/Vol] 27.1 mmol/L 21.0-32.0 [facility] Chloride assayOrdered By: Ishmael Flores on 05-02-2025 Chloride [Moles/Vol] 90 mmol/L Low 98-108 [facility] Comprehensive Metabolic Prof ilon 05-02-2025 Albumin [Mass/Vol] 4.0 g/dL Normal 3.4-4.8 [facility] Comment on above: Performed By: #### L [id number], L500.4050, L100.0100, L506.1001 ####[facility] [address] [place], [address] Albumin/Globulin [Mass ratio] 1.2 {ratio} Normal 0.9-2.4 [facility] Comment on above: Performed By: #### L [id number], L500.4050, L100.0100, L506.1001 ####[facility] [address] [place], [address] ALK PHOS 104 U/L Normal 35-104 [facility] Comment on above: Performed By: #### L [id number], L500.4050, L100.0100, L506.1001 ####[facility] [address] [place], [address] ALT [Catalytic activity/Vol] 13 U/L Normal <=34 [facility] Comment on above: Performed By: #### L [id number], L500.4050, L100.0100, L506.1001 ####[facility] [address] [place], [address] AST [Catalytic activity/Vol] 31 U/L Normal <=31 [facility] Comment on above: Performed By: #### L 501.9520, L500.4050, L100.0100, L506.1001 ####[facility] [address] [place], [address] Bilirubin [Mass/Vol] 0.96 mg/dL Normal 0.00-1.30 [facility] Comment on above: Performed By: #### L 501.9520, L500.4050, L100.0100, L506.1001 ####[facility] [address] [place], [address] BUN/CRE 39.5 RATIO High 10-20 [facility] Comment on above: Performed By: #### L 501.9520, L500.4050, L100.0100, L506.1001 ####[facility] [address] [place], [address] Calcium [Mass/Vol] 9.6 mg/dL Normal 7.6-11.0 [facility] Comment on above: Performed By: #### L 501.9520, L500.4050, L100.0100, L506.1001 ####[facility] [address] [place], [address] Chloride [Moles/Vol] 90 mmol/L Low 98-108 [facility] Comment on above: Performed By: #### L 501.9520, L500.4050, L100.0100, L506.1001 ####[facility] [address] [place], [address] CO2 [Moles/Vol] 27.1 mmol/L Normal 21.0-32.0 [facility] Comment on above: Performed By: #### L 501.9520, L500.4050, L100.0100, L506.1001 ####[facility] [address] [place], [address] Creatinine [Mass/Vol] 1.86 mg/dL High 0.70-1.20 [facility] Comment on above: Performed By: #### L 501.9520, L500.4050, L100.0100, L506.1001 ####[facility] [address] [place], [address] GAP 15 Normal 5-15 [facility] Comment on above: Performed By: #### L 501.9520, L500.4050, L100.0100, L506.1001 ####[facility] [address] [place], [address] GFR/1.73 sq M.predicted among non-blacks MDRD (S/P/Bld) [Vol rate/Area] 27 mL/min/{1.73_m2} Low >60 [facility] Comment on above: Result Comment: mL/m in/1.73m2 CKD-EPI Creatinine Equation (2020) Performed By: #### L 501.9520, L500.4050, L100.0100, L506.1001 ####[facility] [address] [place], [address] Globulin (S) [Mass/Vol] 3.3 g/dL Normal 2.2-4.2 [facility] Comment on above: Performed By: #### L 501.9520, L500.4050, L100.0100, L506.1001 ####[facility] [address] [place], [address] Glucose [Mass/Vol] 142 mg/dL High 70-99 [facility] Comment on above: Performed By: #### L 501.9520, L500.4050, L100.0100, L506.1001 ####[facility] [address] [place], [address] Potassium [Moles/Vol] 3.6 mmol/L Normal 3.3-5.1 [facility] Comment on above: Performed By: #### L 501.9520, L500.4050, L100.0100, L506.1001 ####[facility] [address] [place], [address] Sodium [Moles/Vol] 132 mmol/L Low 133-145 [facility] Comment on above: Performed By: #### L 501.9520, L500.4050, L100.0100, L506.1001 ####[facility] [address] [place], [address] T PROT 7.3 g/dL Normal 5.9-8.4 [facility] Comment on above: Performed By: #### L 501.9520, L500.4050, L100.0100, L506.1001 ####[facility] [address] [place], [address] Urea nitrogen [Mass/Vol] 73 mg/dL High 4-19 [facility] Comment on above: Performed By: #### L 501.9520, L500.4050, L100.0100, L506.1001 ####[facility] [address] [place], [address] Eosinophil percentageOrdered By: Vincent Flores on 05-02-2025 Eosinophils/100 WBC (Bld) 0.9 % 0-5 [facility] Erythrocyte distribution wid th ratioOrdered By: Vincent Flores on 05-02-2025 Erythrocyte distribution width (RBC) [Ratio] 22.2 % High 11.6-14.6 [facility] Erythrocyte distribution wid th standard deviationOrdered By: Vincent Flores on 05-02-2025 Erythrocyte distribution width (RBC) [Ratio] 77.4 fl High 35.1-43.9 [facility] Glomerular filtration rate ( GFR) estimation/1.73 sq m using serum, plasma, or whole bOrdered By: Vincent Flores on 05-02-2025 GFR/1.73 sq M.predicted among non-blacks MDRD (S/P/Bld) [Vol rate/Area] 27 mL/min/{1.73_m2} Low >60 [facility] Hematocrit Auto (Bld) [Volum e fraction]Ordered By: Vincent Flores on 05-02-2025 Hematocrit (Bld) [Volume fraction] 33.7 % Low 37-47 [facility] Hemoglobin measurementOrdere d By: Vincent Flores on 05-02-2025 Hemoglobin (Bld) [Mass/Vol] 11.0 g/dL Low 12.0-15.0 [facility] Immature granulocytes/100 WB C Auto (Bld)Ordered By: Vincent Flores on 05-02-2025 Immature granulocytes/100 WBC (Bld) 0.600 % 0.0-0.9 [facility] MCV (mean corpuscular volume ) determinationOrdered By: Vincent Flores on 05-02-2025 MCV (RBC) [Entitic vol] 93.9 fL 81-99 [facility] Mean corpuscular hemoglobin (MCH) determinationOrdered By: Vincent Flores on 05-02-2025 MCH (RBC) [Entitic mass] 30.6 pg 27.0-32.0 [facility] Monocyte percentageOrdered B y: Vincent Flores on 05-02-2025 Monocytes/100 WBC (Bld) 14.0 % High 0-10 [facility] Neutrophil percentageOrdered By: Vincent Flores on 05-02-2025 Neutrophils/100 WBC (Bld) 58.0 % 47-70 [facility] No Panel InformationOrdered By: Vincent Flores on 05-02-2025 1+ [facility] 31 U/L <32 [facility] Platelet countOrdered By: Ishmael Flores on 05-02-2025 Platelets (Bld) [#/Vol] 131 10*3/uL Low 150-450 [facility] Potassium measurement (mass/ volume)Ordered By: Vincent Flores on 05-02-2025 Potassium (Unsp spec) [Mass/Vol] 3.6 mmol/L 3.3-5.1 [facility] RBC Auto (Bld) [#/Vol]Ordere d By: Vincent Flores on 05-02-2025 RBC (Bld) [#/Vol] 3.59 10*6/uL Low 4.2-5.4 [facility] Serum creatinine measurement (mass/volume)Ordered By: Vincent Flores on 05-02-2025 Creatinine [Mass/Vol] 1.86 mg/dL High 0.70-1.20 [facility] Serum globulin measurementOr dered By: Vincent Flores on 05-02-2025 Globulin (S) [Mass/Vol] 3.3 g/dL 2.2-4.2 [facility] Serum glucose measurement (m ass/volume)Ordered By: Vincent Flores on 05-02-2025 Glucose [Mass/Vol] 142 mg/dL High 70-99 [facility] Serum or plasma alanine craven otransferase (ALT) measurementOrdered By: Vincent Flores on 05-02-2025 ALT [Catalytic activity/Vol] 13 U/L <35 [facility] Serum or plasma albumin bijan urement (mass/volume)Ordered By: Vincent Flores on 05-02-2025 Albumin [Mass/Vol] 4.0 g/dL 3.4-4.8 [facility] Serum or plasma albumin/glob ulin mass ratioOrdered By: Vincent Flores on 05-02-2025 Albumin/Globulin [Mass ratio] 1.2 {ratio} 0.9-2.4 [facility] Serum or plasma alkaline da sphatase measurementOrdered By: Vincent Flores on 05-02-2025 ALP [Catalytic activity/Vol] 104 U/L 35-104 [facility] Serum or plasma calcium bijan urement (mass/volume)Ordered By: Vincent Flores on 05-02-2025 Calcium [Mass/Vol] 9.6 mg/dL 7.6-11.0 [facility] Serum or plasma urea nitroge n measurement (mass/volume)Ordered By: Vincent Flores on 05-02-2025 Urea nitrogen [Mass/Vol] 73 mg/dL High 4-19 [facility] Sodium levelOrdered By: Vincent Flores on 05-02-2025 Sodium [Moles/Vol] 132 mmol/L Low 133-145 [facility] TSH DL <= 0.005 mIU/L QnOrde red By: Vincent Flores on 05-02-2025 TSH Qn 3.250 uIU/mL 0.300-4.200 [facility] Thyroid Stim Hormone (TSH)on 05-02-2025 TSH 3.250 uIU/mL Normal 0.300-4.200 [facility] Comment on above: Performed By: #### L 501.5412, L500.4050, L100.0100, L506.1001 ####[facility] [address] [place], [place], [address] Total proteinOrdered By: Vincent Flores on 05-02-2025 Protein [Mass/Vol] 7.3 g/dL 5.9-8.4 [facility] Vitamin D,25 Hydroxyon 05-02 Vitamin D 25-OH 35.0 ng/mL Normal 30-100 [facility] Comment on above: Result Comment: Haydee min D StatusDeficiency: <20 ng/mL (50nmol/L)Insufficiency: 20-30 ng/mL (50-75 nmol/L)Sufficiency: 30-100 ng/mL (75-250 nmol/L)Toxicity: >100 ng/mL (>250 nmol/L) Performed By: #### L 501.9520, L500.4050, L100.0100, L506.1001 ####[facility] [address] [place], [address] White blood cell (WBC) count Ordered By: Vincent Flores on 05-02-2025 WBC (Bld) [#/Vol] 6.6 10*3/uL 4.4-11.0 [facility] Absolute lymphocyte countOrd ered By: Ric Noriega on 04-24-2025 Lymphocytes Auto (Unsp spec) [#/Vol] 1.46 10*3/uL 0.83-4.51 [facility] Automated lymphocyte count a s percentage of total leukocytesOrdered By: Ric Noriega on 04-24-2025 Lymphocytes/100 WBC Auto (Unsp spec) 26.4 % 19-41 [facility] Basophil percentageOrdered B y: Ric Noriega on 04-24-2025 Basophils/100 WBC (Bld) 0.7 % 0-1 [facility] CBC W/Diff, Automatedon 04-05 Absolute Lymph 1.46 X10 3/uL Normal 0.83-4.51 [facility] Comment on above: Performed By: #### L 503.3550, L503.6030, L100.0100, L100.9950 ####[facility] [address] [place], [address] Absolute Neut 3.2 X10 3/uL Normal 2.0-7.7 [facility] Comment on above: Performed By: #### L 503.6550, L503.6030, L100.0100, L100.9950 ####[facility] [address] [place], [address] Basophils/100 WBC (Bld) 0.7 % Normal 0-1 [facility] Comment on above: Performed By: #### L 503.6550, L503.6030, L100.0100, L100.9950 ####[facility] [address] [place], [address] Eosinophils/100 WBC (Bld) 1.3 % Normal 0-5 [facility] Comment on above: Performed By: #### L 503.6550, L503.6030, L100.0100, L100.9950 ####[facility] [address] [place], [address] Erythrocyte distribution width (RBC) [Ratio] 22.7 % High 11.6-14.6 [facility] Comment on above: Performed By: #### L 503.6550, L503.6030, L100.0100, L100.9950 ####[facility] [address] [place], [address] Hematocrit (Bld) [Volume fraction] 33.0 % Low 37-47 [facility] Comment on above: Performed By: #### L 503.6550, L503.6030, L100.0100, L100.9950 ####[facility] [address] [place], [address] Hemoglobin (Bld) [Mass/Vol] 10.6 g/dL Low 12.0-15.0 [facility] Comment on above: Performed By: #### L 503.6550, L503.6030, L100.0100, L100.9950 ####[facility] [address] [place], [address] IG% 0.400 Normal 0.0-0.9 [facility] Comment on above: Result Comment: IG% - Immature Granulocytes (promyelocytes, myelocytes andmetamyelocytes) > 1% indicates that a LEFT SHIFT is Present. Performed By: #### L 503.6550, L503.6030, L100.0100, L100.9950 ####[facility] [address] [place], [address] Lymphocytes/100 WBC (Bld) 26.4 % Normal 19-41 [facility] Comment on above: Performed By: #### L 503.6550, L503.6030, L100.0100, L100.9950 ####[facility] [address] [place], [address] MCH (RBC) [Entitic mass] 30.4 pg Normal 27.0-32.0 [facility] Comment on above: Performed By: #### L 503.6550, L503.6030, L100.0100, L100.9950 ####[facility] [address] [place], [address] MCHC (RBC) [Mass/Vol] 32.1 g/dL Normal 32-36 [facility] Comment on above: Performed By: #### L 503.6550, L503.6030, L100.0100, L100.9950 ####[facility] [address] [place], [address] MCV (RBC) [Entitic vol] 94.6 fL Normal 81-99 [facility] Comment on above: Performed By: #### L 503.6550, L503.6030, L100.0100, L100.9950 ####[facility] [address] [place], [address] Monocytes/100 WBC (Bld) 12.7 % High 0-10 [facility] Comment on above: Performed By: #### L 503.6550, L503.6030, L100.0100, L100.9950 ####[facility] [address] [place], [address] Neutrophils/100 WBC (Bld) 58.5 % Normal 47-70 [facility] Comment on above: Performed By: #### L 503.6550, L503.6030, L100.0100, L100.9950 ####[facility] [address] [place], [address] Nucleated RBC (Bld) [#/Vol] 0 10*3/uL Normal 0-5 [facility] Comment on above: Performed By: #### L 503.6550, L503.6030, L100.0100, L100.9950 ####[facility] [address] [place], [address] Platelet mean volume (Bld) [Entitic vol] 9.2 fL Normal 6.2-12.0 [facility] Comment on above: Performed By: #### L 503.6550, L503.6030, L100.0100, L100.9950 ####[facility] [address] [place], [address] Platelets (Bld) [#/Vol] 108 10*3/uL Low 150-450 [facility] Comment on above: Performed By: #### L 503.6550, L503.6030, L100.0100, L100.9950 ####[facility] [address] [place], [address] RBC (Bld) [#/Vol] 3.49 10*6/uL Low 4.2-5.4 [facility] Comment on above: Performed By: #### L 503.6550, L503.6030, L100.0100, L100.9950 ####[facility] [address] [place], [address] RDW SD 80.4 fl High 35.1-43.9 [facility] Comment on above: Performed By: #### L 503.6550, L503.6030, L100.0100, L100.9950 ####[facility] [address] [place], [address] WBC (Bld) [#/Vol] 5.5 10*3/uL Normal 4.4-11.0 [facility] Comment on above: Performed By: #### L 503.6550, L503.6030, L100.0100, L100.9950 ####[facility] [address] [place], [address] Eosinophil percentageOrdered By: Ric Noriega on 04-24-2025 Eosinophils/100 WBC (Bld) 1.3 % 0-5 [facility] Erythrocyte distribution wid th ratioOrdered By: [facility] on 04-24-2025 Erythrocyte distribution width (RBC) [Ratio] 22.7 % High 11.6-14.6 [facility] Erythrocyte distribution wid th standard deviation[facility]: [facility] on 04-24-2025 Erythrocyte distribution width (RBC) [Ratio] 80.4 fl High 35.1-43.9 [facility] Ferritinon 04-24-2025 Ferritin [Mass/Vol] 135 ng/mL Normal 22-378 [facility] Comment on above: Performed By: #### L 503.6550, L503.6030, L100.0100, L100.9950 ####[facility] [address] [place], [address] Hematocrit Auto (Bld) [Volum e fraction]Ordered By: Ric Noriega on 04-24-2025 Hematocrit (Bld) [Volume fraction] 33.0 % Low 37-47 [facility] Hemoglobin measurementOrdere d By: Ric Noriega on 04-24-2025 Hemoglobin (Bld) [Mass/Vol] 10.6 g/dL Low 12.0-15.0 [facility] Immature granulocytes/100 WB C Auto (Bld)Ordered By: Ric Noriega on 04-24-2025 Immature granulocytes/100 WBC (Bld) 0.400 % 0.0-0.9 [facility] Iron measurement (mass/mass) Ordered By: Ric Noriega on 04-24-2025 Iron (Unsp spec) [Mass/Mass] 119 ug/dL 50-170 [facility] Iron+Iron Binding Capacityon 04-24-2025 Iron [Mass/Vol] 119 ug/dL Normal 50-170 [facility] Comment on above: Performed By: #### L 503.6550, L503.6030, L100.0100, L100.9950 ####[facility] [address] [place], [address] IRON SATURATION 30.0 Normal 13-59 [facility] Comment on above: Performed By: #### L 503.6550, L503.6030, L100.0100, L100.9950 ####[facility] [address] [place], [address] TIBC 397 ug/dL Normal 250-450 [facility] Comment on above: Performed By: #### L 503.6550, L503.6030, L100.0100, L100.9950 ####[facility] [address] [place], [address] UIBC 278 ug/dL Normal 228-428 [facility] Comment on above: Performed By: #### L 503.6550, L503.6030, L100.0100, L100.9950 ####[facility] [address] [place], [address] MCV (mean corpuscular volume ) determinationOrdered By: Ric Noriega on 04-24-2025 MCV (RBC) [Entitic vol] 94.6 fL 81-99 [facility] Mean corpuscular hemoglobin (MCH) determinationOrdered By: Ric Noriega on 04-24-2025 MCH (RBC) [Entitic mass] 30.4 pg 27.0-32.0 [facility] Monocyte percentageOrdered B y: Ric Noriega on 04-24-2025 Monocytes/100 WBC (Bld) 12.7 % High 0-10 [facility] Neutrophil percentageOrdered By: Ric Agudelokelly on 04-24-2025 Neutrophils/100 WBC (Bld) 58.5 % 47-70 [facility] No Panel InformationOrdered By: Ric Agudelokelly on 04-24-2025 278 ug/dL 228-428 [facility] Oncology Visit Reporton 04-05 Oncology Visit Report Normal [facility] Platelet countOrdered By: Beryl oh Hari on 04-24-2025 Platelets (Bld) [#/Vol] 108 10*3/uL Low 150-450 [facility] RBC Auto (Bld) [#/Vol]Ordere d By: Ric Agudelokelly on 04-24-2025 RBC (Bld) [#/Vol] 3.49 10*6/uL Low 4.2-5.4 [facility] Retic Panelon 04-24-2025 IM RET FRACTION 13.80 Normal 3.00-15.90 [facility] Comment on above: Performed By: #### L 503.6550, L503.6030, L100.0100, L100.9950 ####[facility] [address] [place], [place], [id number] RET-HE 30.4 pg Normal 30-35 [facility] Comment on above: Performed By: #### L 503.6550, L503.6030, L100.0100, L100.9950 ####[facility] [address] [place], [place], [id number] Retic Count 1.82 High 0.5-1.5 [facility] Comment on above: Performed By: #### L 503.6550, L503.6030, L100.0100, L100.9950 ####[facility] [address] [place], [place], [id number] Reticulocyte hemoglobin equi valent (RET-He) measurementOrdered By: Abirubin Noriega on 04-24-2025 Hemoglobin (Reticulocytes) [Entitic mass] 30.4 pg 30-35 [facility] Reticulocytes Auto (Bld) [#/ Vol]Ordered By: [facility] on 04-24-2025 Reticulocytes/100 RBC (Bld) 1.82 % High 0.5-1.5 [facility] Serum or plasma ferritin austin surement (mass/volume)Ordered By: [facility] Hari on 04-24-2025 Ferritin [Mass/Vol] 135 ng/mL 22-378 [facility] Serum or plasma iron saturat ion measurement (mass fraction)Ordered By: [facility] Iron saturation [Mass fraction] 30.0 % 13-59 [facility] White blood cell (WBC) count Ordered By: [facility] Hari on 04-24-2025 WBC (Bld) [#/Vol] 5.5 10*3/uL 4.4-11.0 [facility] History AND Physic apollo 04-23-2025 Wound Ctr History & Physical Normal [facility] Culture, Anaerobic Any Sourc andie 04-08-2025 CUAN No anaerobic bacteri a isolated. [facility] Comment on above: Performed By: #### L 8200.1075, M100.2000, M100.4001, M100.3000 ####[facility] [address] [place], [place], [id number] Wound Cultureon 04-04-2025 WC Normal [facility] Comment on above: Performed By: #### L 8200.1075, M100.2000, M100.4001, M100.3000 ####[facility] [address] [facility] [place], [place], [phone] Gram Stainon 04-03-2025 GS Acceptable Specimen? Yes (<25 Epithelial cells per/lpf) Gram Stain 2+ White Blood Cells 1+ Red Blood Cells No Epithelial cells 1+ Gram positive cocci Normal [facility] Comment on above: Performed By: #### L 8200.1075, M100.2000, M100.4001, M100.3000 ####[facility] [address] [place], [address] Anaerobic cultureOrdered By: Vincent Flores on 04-02-2025 Bacteria identified Anaer cx Nom (Unsp spec) No anaerobic bacteria isolated. [facility] Gram stainOrdered By: Vincent cintron on 04-02-2025 Microscopic observation Gram stain Nom (Unsp spec) [facility] Microscopic observation Gram stain Nom (Unsp spec) [facility] MRSA Wound DNA by PCRon 03-06 MRSA DNA ASSAY Negative Normal Negative [facility] Comment on above: Order Comment: RIGHT ARM Performed By: #### L 8200.1075, M100.2000, M100.4001, M100.3000 ####[facility] [address] [place], [address] SA DNA ASSAY Positive Abnormal Negative [facility] Comment on above: Order Comment: RIGHT ARM Performed By: #### L 8200.1075, M100.2000, M100.4001, M100.3000 ####[facility] [address] [place], [address] Staphylococcus aureus DNA de tection by probe and target amplification methodOrdered By: Vincent Flores on 04-02-2025 S. aureus DNA RANDOLPH+probe Ql (Unsp spec) Positive High Negative [facility] Emergency Department Summary on 03-22-2025 Emergency Department Summary Normal [facility] Erythropoietinon 03-15-2025 ERYTHROPOIETIN 190.9 mIU/mL High 2.6-18.5 [facility] Comment on above: Result Comment: [employer] DxI 800 Immunoassay SystemValues obtained with different assay methods or kits cannotbe used interchangeably. Results cannot be interpreted asabsolute evidence of the presence or absence of malignantdisease.Performed at: [address] [id number] Director: Chuy Rizvi PhD, Phone: [phone] Performed By: #### L 100.9950, L100.0100, L3100.1350, L503.6550, L503.0106, L503.6030, L500.4050 ####[facility] [address] [place], [address] Absolute lymphocyte countOrd ered By: Ric Noriega on 03-13-2025 Lymphocytes Auto (Unsp spec) [#/Vol] 1.60 10*3/uL 0.83-4.51 [facility] Anion gap in Serum or Plasma Ordered By: Ric Noriega on 03-13-2025 Anion gap [Moles/Vol] 16 mmol/L High 5-15 [facility] Automated lymphocyte count a s percentage of total leukocytesOrdered By: Ric Noriega on 03-13-2025 Lymphocytes/100 WBC Auto (Unsp spec) 24.2 % 19-41 [facility] BUN/creatinine ratioOrdered By: Ric Noriega on 03-13-2025 Urea nitrogen/Creatinine [Mass ratio] 24.6 mg/mg High 10-20 [facility] Basophil percentageOrdered B y: Ric Noriega on 03-13-2025 Basophils/100 WBC (Bld) 0.9 % 0-1 [facility] Bilirubin, totalOrdered By: Ric Noriega on 03-13-2025 Bilirubin [Mass/Vol] 1.04 mg/dL 0.00-1.30 [facility] Blood manual differential co mment interpretation (narrative result)Ordered By: Ric Noriega on 03-13-2025 Manual differential comment Cristhian (Bld) [Interp] SCANNED [facility] Blood polychromasia detectio n by light microscopyOrdered By: [facility] on 03-13-2025 Polychromasia LM Ql (Bld) 1+ [facility] CBC W/Diff, Automatedon Anisocytosis Ql (Bld) 2+ Normal [facility] Comment on above: Performed By: #### L 100.9950, L100.0100, L3100.1350, L503.6550, L503.0106, L503.6030, L500.4050 ####[facility] [address] [place], [address] POLYCHROMASIA 1+ Normal [facility] Comment on above: Performed By: #### L 100.9950, L100.0100, L3100.1350, L503.6550, L503.0106, L503.6030, L500.4050 ####[facility] [address] [place], [address] PLT EST ADEQUATE Normal ADEQ [facility] Comment on above: Performed By: #### L 100.9950, L100.0100, L3100.1350, L503.6550, L503.0106, L503.6030, L500.4050 ####[facility] [address] [place], [address] SMEAR COMMENT SCANNED Normal [facility] Comment on above: Performed By: #### L 100.9950, L100.0100, L3100.1350, L503.6550, L503.0106, L503.6030, L500.4050 ####[facility] [address] [place], [address] Carbon dioxide, total [Moles /volume] in Central venous bloodOrdered By: Ric Noriega on 03-13-2025 CO2 [Moles/Vol] 24.4 mmol/L 21.0-32.0 [facility] Chloride assayOrdered By: Beryl Noriega on 03-13-2025 Chloride [Moles/Vol] 92 mmol/L Low 98-108 [facility] Comprehensive Metabolic Prof ilon 03-13-2025 Albumin [Mass/Vol] 4.0 g/dL Normal 3.4-4.8 [facility] Comment on above: Performed By: #### L 100.9950, L100.0100, L3100.1350, L503.6550, L503.0106, L503.6030, L500.4050 ####[facility] [address] [place], [address] Albumin/Globulin [Mass ratio] 1.2 {ratio} Normal 0.9-2.4 [facility] Comment on above: Performed By: #### L 100.9950, L100.0100, L3100.1350, L503.6550, L503.0106, L503.6030, L500.4050 ####[facility] [address] [place], [address] ALK PHOS 136 U/L High 35-104 [facility] Comment on above: Performed By: #### L 100.9950, L100.0100, L3100.1350, L503.6550, L503.0106, L503.6030, L500.4050 ####[facility] [address] [place], [address] ALT [Catalytic activity/Vol] 16 U/L Normal <=34 [facility] Comment on above: Performed By: #### L 100.9950, L100.0100, L3100.1350, L503.6550, L503.0106, L503.6030, L500.4050 ####[facility] [address] [place], [address] AST [Catalytic activity/Vol] 33 U/L High <=31 [facility] Comment on above: Performed By: #### L 100.9950, L100.0100, L3100.1350, L503.6550, L503.0106, L503.6030, L500.4050 ####[facility] [address] [place], [address] Bilirubin [Mass/Vol] 1.04 mg/dL Normal 0.00-1.30 [facility] Comment on above: Performed By: #### L 100.9950, L100.0100, L3100.1350, L503.6550, L503.0106, L503.6030, L500.4050 ####[facility] [address] [place], [address] BUN/CRE 24.6 RATIO High 10-20 [facility] Comment on above: Performed By: #### L 100.9950, L100.0100, L3100.1350, L503.6550, L503.0106, L503.6030, L500.4050 ####[facility] [address] [place], [address] Calcium [Mass/Vol] 9.2 mg/dL Normal 7.6-11.0 [facility] Comment on above: Performed By: #### L 100.9950, L100.0100, L3100.1350, L503.6550, L503.0106, L503.6030, L500.4050 ####[facility] [address] [place], [address] Chloride [Moles/Vol] 92 mmol/L Low 98-108 [facility] Comment on above: Performed By: #### L 100.9950, L100.0100, L3100.1350, L503.6550, L503.0106, L503.6030, L500.4050 ####[facility] [address] [place], [address] CO2 [Moles/Vol] 24.4 mmol/L Normal 21.0-32.0 [facility] Comment on above: Performed By: #### L 100.9950, L100.0100, L3100.1350, L503.6550, L503.0106, L503.6030, L500.4050 ####[facility] [address] [place], [address] Creatinine [Mass/Vol] 2.12 mg/dL High 0.70-1.20 [facility] Comment on above: Performed By: #### L 100.9950, L100.0100, L3100.1350, L503.6550, L503.0106, L503.6030, L500.4050 ####[facility] [address] [place], [address] GAP 16 High 5-15 [facility] Comment on above: Performed By: #### L 100.9950, L100.0100, L3100.1350, L503.6550, L503.0106, L503.6030, L500.4050 ####[facility] [address] [place], [address] GFR/1.73 sq M.predicted among non-blacks MDRD (S/P/Bld) [Vol rate/Area] 23 mL/min/{1.73_m2} Low >60 [facility] Comment on above: Result Comment: mL/m in/1.73m2 CKD-EPI Creatinine Equation (2020) Performed By: #### L 100.9950, L100.0100, L3100.1350, L503.6550, L503.0106, L503.6030, L500.4050 ####[facility] [address] [place], [place], [phone]) Globulin (S) [Mass/Vol] 3.3 g/dL Normal 2.2-4.2 [facility] Comment on above: Performed By: #### L 100.9950, L100.0100, L3100.1350, L503.6550, L503.0106, L503.6030, L500.4050 ####[facility] [address] [place], [place], [phone](314) Glucose [Mass/Vol] 139 mg/dL High 70-99 [facility] Comment on above: Performed By: #### L 100.9950, L100.0100, L3100.1350, L503.6550, L503.0106, L503.6030, L500.4050 ####[facility] [address] [place], [address] Potassium [Moles/Vol] 3.8 mmol/L Normal 3.3-5.1 [facility] Comment on above: Performed By: #### L 100.9950, L100.0100, L3100.1350, L503.6550, L503.0106, L503.6030, L500.4050 ####[facility] [address] [place], [address] Sodium [Moles/Vol] 132 mmol/L Low 133-145 [facility] Comment on above: Performed By: #### L 100.9950, L100.0100, L3100.1350, L503.6550, L503.0106, L503.6030, L500.4050 ####[facility] [address] [place], [address] T PROT 7.3 g/dL Normal 5.9-8.4 [facility] Comment on above: Performed By: #### L 100.9950, L100.0100, L3100.1350, L503.6550, L503.0106, L503.6030, L500.4050 ####[facility] [address] [place], [address] Urea nitrogen [Mass/Vol] 52 mg/dL High 4-19 [facility] Comment on above: Performed By: #### L 100.9950, L100.0100, L3100.1350, L503.6550, L503.0106, L503.6030, L500.4050 ####[facility] [address] [place], [address] Eosinophil percentageOrdered By: Ric Noriega on 03-13-2025 Eosinophils/100 WBC (Bld) 1.2 % 0-5 [facility] Erythrocyte distribution wid th ratioOrdered By: Ric Noriega on 03-13-2025 Erythrocyte distribution width (RBC) [Ratio] 25.2 % High 11.6-14.6 [facility] Erythrocyte distribution wid th standard deviationOrdered By: Ric Noriega on 03-13-2025 Erythrocyte distribution width (RBC) [Ratio] 82.1 fl High 35.1-43.9 [facility] Ferritinon 03-13-2025 Ferritin [Mass/Vol] 48 ng/mL Normal 22-378 [facility] Comment on above: Performed By: #### L 100.9950, L100.0100, L3100.1350, L503.6550, L503.0106, L503.6030, L500.4050 ####[facility] [address] [place], [place], [address] Glomerular filtration rate ( GFR) estimation/1.73 sq m using serum, plasma, or whole bOrdered By: Ric Noriega on 03-13-2025 GFR/1.73 sq M.predicted among non-blacks MDRD (S/P/Bld) [Vol rate/Area] 23 mL/min/{1.73_m2} Low >60 [facility] Hematocrit Auto (Bld) [Volum e fraction]Ordered By: Ric Noriega on 03-13-2025 Hematocrit (Bld) [Volume fraction] 27.8 % Low 37-47 [facility] Hemoglobin measurementOrdere d By: Ric Noriega on 03-13-2025 Hemoglobin (Bld) [Mass/Vol] 8.7 g/dL Low 12.0-15.0 [facility] Immature granulocytes/100 WB C Auto (Bld)Ordered By: Ric Noriega on 03-13-2025 Immature granulocytes/100 WBC (Bld) 0.200 % 0.0-0.9 [facility] Iron measurement (mass/mass) Ordered By: Ric Noriega on 03-13-2025 Iron (Unsp spec) [Mass/Mass] 39 ug/dL Low 50-170 [facility] Iron+Iron Binding Capacityon 03-13-2025 TIBC 453 ug/dL High 250-450 [facility] Comment on above: Performed By: #### L 100.9950, L100.0100, L3100.1350, L503.6550, L503.0106, L503.6030, L500.4050 ####[facility] [address] [place], [address] MCV (mean corpuscular volume ) determinationOrdered By: Ric Noriega on 03-13-2025 MCV (RBC) [Entitic vol] 89.7 fL 81-99 [facility] Mean corpuscular hemoglobin (MCH) determinationOrdered By: Ric Noriega on 03-13-2025 MCH (RBC) [Entitic mass] 28.1 pg 27.0-32.0 [facility] Monocyte percentageOrdered B y: Ric Noriega on 03-13-2025 Monocytes/100 WBC (Bld) 14.7 % High 0-10 [facility] Neutrophil percentageOrdered By: Ric Noriega on 03-13-2025 Neutrophils/100 WBC (Bld) 58.8 % 47-70 [facility] No Panel InformationOrdered By: Ric Noriega on 03-13-2025 2+ [facility] 33 U/L High <32 [facility] 414 ug/dL 228-428 [facility] Oncology Visit Reporton Oncology Visit Report Normal [facility] Platelet countOrdered By: Beryl Noriega on 03-13-2025 Platelets (Bld) [#/Vol] 184 10*3/uL 150-450 [facility] Platelet estimateOrdered By: Ric Noriega on 03-13-2025 Platelets LM Ql (Bld) ADEQUATE ADEQ [facility] Potassium measurement (mass/ volume)Ordered By: Ric Noriega on 03-13-2025 Potassium (Unsp spec) [Mass/Vol] 3.8 mmol/L 3.3-5.1 [facility] RBC Auto (Bld) [#/Vol]Ordere d By: Ric Noriega on 03-13-2025 RBC (Bld) [#/Vol] 3.10 10*6/uL Low 4.2-5.4 [facility] Retic Panelon 03-13-2025 IM RET FRACTION 30.30 High 3.00-15.90 [facility] Comment on above: Performed By: #### L 100.9950, L100.0100, L3100.1350, L503.6550, L503.0106, L503.6030, L500.4050 ####[facility] [address] [place], [place], [phone]) RET-HE 27.7 pg Low 30-35 [facility] Comment on above: Performed By: #### L 100.9950, L100.0100, L3100.1350, L503.6550, L503.0106, L503.6030, L500.4050 ####[facility] [address] [place], [place], [phone]) Retic Count 2.47 High 0.5-1.5 [facility] Comment on above: Performed By: #### L 100.9950, L100.0100, L3100.1350, L503.6550, L503.0106, L503.6030, L500.4050 ####[facility] [address] [place], [place], [phone] Reticulocyte hemoglobin equi valent (RET-He) measurementOrdered By: Ric Noriega on 03-13-2025 Hemoglobin (Reticulocytes) [Entitic mass] 27.7 pg Low 30-35 [facility] Reticulocytes Auto (Bld) [#/ Vol]Ordered By: Ric Noriega on 03-13-2025 Reticulocytes/100 RBC (Bld) 2.47 % High 0.5-1.5 [facility] Serum creatinine measurement (mass/volume)Ordered By: Ric Noriega on 03-13-2025 Creatinine [Mass/Vol] 2.12 mg/dL High 0.70-1.20 [facility] Serum globulin measurementOr dered By: Ric Noriega on 03-13-2025 Globulin (S) [Mass/Vol] 3.3 g/dL 2.2-4.2 [facility] Serum glucose measurement (m ass/volume)Ordered By: Ric Noriega on 03-13-2025 Glucose [Mass/Vol] 139 mg/dL High 70-99 [facility] Serum or plasma alanine craven otransferase (ALT) measurementOrdered By: Ric Noriega on 03-13-2025 ALT [Catalytic activity/Vol] 16 U/L <35 [facility] Serum or plasma albumin bijan urement (mass/volume)Ordered By: Ric Noriega on 03-13-2025 Albumin [Mass/Vol] 4.0 g/dL 3.4-4.8 [facility] Serum or plasma albumin/glob ulin mass ratioOrdered By: Ric Noriega on 03-13-2025 Albumin/Globulin [Mass ratio] 1.2 {ratio} 0.9-2.4 [facility] Serum or plasma alkaline da sphatase measurementOrdered By: Ric Noriega on 03-13-2025 ALP [Catalytic activity/Vol] 136 U/L High 35-104 [facility] Serum or plasma calcium bijan urement (mass/volume)Ordered By: Ric Noriega on 03-13-2025 Calcium [Mass/Vol] 9.2 mg/dL 7.6-11.0 [facility] Serum or plasma erythropoiet in (EPO) measurement (units/volume)Ordered By: Ric Noriega on 03-13-2025 Erythropoietin (EPO) Qn 190.9 mIU/mL High 2.6-18.5 [facility] Serum or plasma ferritin austin surement (mass/volume)Ordered By: Ric Noriega on 03-13-2025 Ferritin [Mass/Vol] 48 ng/mL 22-378 [facility] Serum or plasma iron saturat ion measurement (mass fraction)Ordered By: Ric Noriega on 03-13-2025 Iron saturation [Mass fraction] 8.6 % Low 13-59 [facility] Serum or plasma urea nitroge n measurement (mass/volume)Ordered By: Ric Noriega on 03-13-2025 Urea nitrogen [Mass/Vol] 52 mg/dL High 4-19 [facility] Sodium levelOrdered By: Abi Noriega on 03-13-2025 Sodium [Moles/Vol] 132 mmol/L Low 133-145 [facility] Total proteinOrdered By: Ashwin walter Hari on 03-13-2025 Protein [Mass/Vol] 7.3 g/dL 5.9-8.4 [facility] Vitamin B12on 03-13-2025 Cobalamin (Vitamin B12) [Mass/Vol] 1100 pg/mL High 180-914 [facility] Comment on above: Performed By: #### L 100.9950, L100.0100, L3100.1350, L503.6550, L503.0106, L503.6030, L500.4050 ####[facility] [address] [place], [place], [address] Vitamin B12 ser/plasOrdered By: Ric Hari on 03-13-2025 Cobalamin (Vitamin B12) [Mass/Vol] 1100 pg/mL High 180-914 [facility] White blood cell (WBC) count Ordered By: Ric Noriega on 03-13-2025 WBC (Bld) [#/Vol] 6.6 10*3/uL 4.4-11.0 [facility] Absolute lymphocyte countOrd ered By: Vincent Flores on 03-09-2025 Lymphocytes Auto (Unsp spec) [#/Vol] 2.06 10*3/uL 0.83-4.51 [facility] Anion gap in Serum or Plasma Ordered By: Vincent Flores on 03-09-2025 Anion gap [Moles/Vol] 13 mmol/L 5-15 [facility] Automated lymphocyte count a s percentage of total leukocytesOrdered By: Vincent Flores on 03-09-2025 Lymphocytes/100 WBC Auto (Unsp spec) 33.8 % 19-41 [facility] BUN/creatinine ratioOrdered By: Vincent Flores on 03-09-2025 Urea nitrogen/Creatinine [Mass ratio] 27.6 mg/mg High 10 [facility] Basic Metabolic Profile (BMP )on 03-09-2025 BUN/CRE 27.6 RATIO High 04-23 [facility] Comment on above: Performed By: #### L 500.2500, L100.0100 ####[facility] [address] [place], [address] Calcium [Mass/Vol] 9.1 mg/dL Normal 7.6-11.0 [facility] Comment on above: Performed By: #### L 500.2500, L100.0100 ####[facility] [address] [place], [address] Chloride [Moles/Vol] 97 mmol/L Low 98-108 [facility] Comment on above: Performed By: #### L 500.2500, L100.0100 ####[facility] [address] [place], [address] CO2 [Moles/Vol] 21.7 mmol/L Normal 21.0-32.0 [facility] Comment on above: Performed By: #### L 500.2500, L100.0100 ####[facility] [address] [place], [address] Creatinine [Mass/Vol] 1.80 mg/dL High 0.70-1.20 [facility] Comment on above: Performed By: #### L 500.2500, L100.0100 ####[facility] [address] [place], [address] GAP 13 Normal 5-15 [facility] Comment on above: Performed By: #### L 500.2500, L100.0100 ####[facility] [address] [place], [address] GFR/1.73 sq M.predicted among non-blacks MDRD (S/P/Bld) [Vol rate/Area] 28 mL/min/{1.73_m2} Low >60 [facility] Comment on above: Result Comment: mL/m in/1.73m2 CKD-EPI Creatinine Equation (2020) Performed By: #### L 500.2500, L100.0100 ####[facility] [address] [place], [address] Glucose [Mass/Vol] 136 mg/dL High 70-99 [facility] Comment on above: Performed By: #### L 500.2500, L100.0100 ####[facility] [address] [place], [address] Potassium [Moles/Vol] 5.0 mmol/L Normal 3.3-5.1 [facility] Comment on above: Performed By: #### L 500.2500, L100.0100 ####[facility] [address] [place], [address] Sodium [Moles/Vol] 131 mmol/L Low 133-145 [facility] Comment on above: Performed By: #### L 500.2500, L100.0100 ####[facility] [address] [place], [address] Urea nitrogen [Mass/Vol] 50 mg/dL High 4-19 [facility] Comment on above: Performed By: #### L 500.2500, L100.0100 ####[facility] [address] [place], [address] Basophil percentageOrdered B y: Vincent Flores on 03-09-2025 Basophils/100 WBC (Bld) 1.0 % 0-1 [facility] Blood manual differential co mment interpretation (narrative result)Ordered By: Vincent Flores on 03-09-2025 Manual differential comment Cristhian (Bld) [Interp] SCANNED [facility] CBC W/Diff, Automatedon Anisocytosis Ql (Bld) 2+ Normal [facility] Comment on above: Performed By: #### L 500.2500, L100.0100 ####[facility] [address] [place], [address] REACTIVE LYMPH 1+ Normal [facility] Comment on above: Performed By: #### L 500.2500, L100.0100 ####[facility] [address] [place], [place], [address] SMEAR COMMENT SCANNED Normal [facility] Comment on above: Performed By: #### L 500.2500, L100.0100 ####[facility] [address] [place], [address] Carbon dioxide, total [Moles /volume] in Central venous bloodOrdered By: Vincent Flores on 03-09-2025 CO2 [Moles/Vol] 21.7 mmol/L 21.0-32.0 [facility] Chloride assayOrdered By: Ishmael Flores on 03-09-2025 Chloride [Moles/Vol] 97 mmol/L Low 98-108 [facility] Eosinophil percentageOrdered By: Vincent Flores on 03-09-2025 Eosinophils/100 WBC (Bld) 1.6 % 0-5 [facility] Erythrocyte distribution wid th ratioOrdered By: Vincent Flores 03-09-2025 Erythrocyte distribution width (RBC) [Ratio] 24.9 % High 11.6-14.6 [facility] Erythrocyte distribution wid th standard deviationOrdered By: Vincent Flores 03-09-2025 Erythrocyte distribution width (RBC) [Ratio] 81.9 fl High 35.1-43.9 [facility] Glomerular filtration rate ( GFR) estimation/1.73 sq m using serum, plasma, or whole bOrdered By: Vincent Flores on 03-09-2025 GFR/1.73 sq M.predicted among non-blacks MDRD (S/P/Bld) [Vol rate/Area] 28 mL/min/{1.73_m2} Low >60 [facility] Hematocrit Auto (Bld) [Volum e fraction]Ordered By: Vincent Flores 03-09-2025 Hematocrit (Bld) [Volume fraction] 28.3 % Low 37-47 [facility] Hemoglobin measurementOrdere d By: Vincent Flores 03-09-2025 Hemoglobin (Bld) [Mass/Vol] 8.9 g/dL Low 12.0-15.0 [facility] Immature granulocytes/100 WB C Auto (Bld)Ordered By: Vincent Flores 03-09-2025 Immature granulocytes/100 WBC (Bld) 0.500 % 0.0-0.9 [facility] MCV (mean corpuscular volume ) determinationOrdered By: Vincent Flores on 03-09-2025 MCV (RBC) [Entitic vol] 89.3 fL 81-99 [facility] Mean corpuscular hemoglobin (MCH) determinationOrdered By: Vincent Flores on 03-09-2025 MCH (RBC) [Entitic mass] 28.1 pg 27.0-32.0 [facility] Monocyte percentageOrdered B y: Vincent Flores on 03-09-2025 Monocytes/100 WBC (Bld) 16.2 % High 0-10 [facility] Neutrophil percentageOrdered By: Vincent Flores on 03-09-2025 Neutrophils/100 WBC (Bld) 46.9 % Low 47-70 [facility] No Panel InformationOrdered By: Vincent Flores on 03-09-2025 2+ [facility] Platelet countOrdered By: Ishmael Flores on 03-09-2025 Platelets (Bld) [#/Vol] 191 10*3/uL 150-450 [facility] Potassium measurement (mass/ volume)Ordered By: Vincent Flores on 03-09-2025 Potassium (Unsp spec) [Mass/Vol] 5.0 mmol/L 3.3-5.1 [facility] RBC Auto (Bld) [#/Vol]Ordere d By: Vincent Flores 03-09-2025 RBC (Bld) [#/Vol] 3.17 10*6/uL Low 4.2-5.4 [facility] Serum creatinine measurement (mass/volume)Ordered By: Vincent Flores on 03-09-2025 Creatinine [Mass/Vol] 1.80 mg/dL High 0.70-1.20 [facility] Serum glucose measurement (m ass/volume)Ordered By: Vincent Flores on 03-09-2025 Glucose [Mass/Vol] 136 mg/dL High 70-99 [facility] Serum or plasma calcium bijan urement (mass/volume)Ordered By: Vincent Flores 03-09-2025 Calcium [Mass/Vol] 9.1 mg/dL 7.6-11.0 [facility] Serum or plasma urea nitroge n measurement (mass/volume)Ordered By: Vincent Flores on 03-09-2025 Urea nitrogen [Mass/Vol] 50 mg/dL High - [facility] Sodium levelOrdered By: Vincent Flores on 03-09-2025 Sodium [Moles/Vol] 131 mmol/L Low 133-145 [facility] White blood cell (WBC) count Ordered By: Vincent Flores on 03-09-2025 WBC (Bld) [#/Vol] 6.1 10*3/uL 4.4-11.0 [facility] Anion gap in Serum or Plasma Ordered By: Vincent Flores on 03-02-2025 Anion gap [Moles/Vol] 14 mmol/L - [facility] BUN/creatinine ratioOrdered By: Vincent Flores on 03-02-2025 Urea nitrogen/Creatinine [Mass ratio] 45.3 mg/mg High 04-23 [facility] Basic Metabolic Profile (BMP )on 03-02-2025 BUN/CRE 45.3 RATIO High 04-23 [facility] Comment on above: Performed By: #### L 500.2500 ####[facility] [address] [place], [address] GAP 14 Normal - [facility] Comment on above: Performed By: #### L 500.2500 ####[facility] [address] [place], [address] Potassium [Moles/Vol] 4.2 mmol/L Normal 3.3-5.1 [facility] Comment on above: Performed By: #### L 500.2500 ####[facility] [address] [place], [address] Carbon dioxide, total [Moles /volume] in Central venous bloodOrdered By: Vincent Flores on 03-02-2025 CO2 [Moles/Vol] 25.2 mmol/L Normal 21.0-32.0 [facility] Comment on above: Performed By: #### L 500.2500 ####[facility] [address] [place], [address] Chloride assayOrdered By: Ishmael Petersok on 03-02-2025 Chloride [Moles/Vol] 94 mmol/L Low 98-108 [facility] Comment on above: Performed By: #### L 500.2500 ####[facility] [address] [place], [place], [address] Glomerular filtration rate ( GFR) estimation/1.73 sq m using serum, plasma, or whole bOrdered By: Vincent Flores on 03-02-2025 GFR/1.73 sq M.predicted among non-blacks MDRD (S/P/Bld) [Vol rate/Area] 28 mL/min/{1.73_m2} Low >60 [facility] Comment on above: Result Comment: mL/m in/1.73m2 CKD-EPI Creatinine Equation (2020) Performed By: #### L 500.2500 ####[facility] [address] [place], [place], [id number] Potassium measurement (mass/ volume)Ordered By: Vincent Flores on 03-02-2025 Potassium (Unsp spec) [Mass/Vol] 4.2 mmol/L 3.3-5.1 [facility] Serum creatinine measurement (mass/volume)Ordered By: Vincent Flores on 03-02-2025 Creatinine [Mass/Vol] 1.79 mg/dL High 0.70-1.20 [facility] Comment on above: Performed By: #### L 500.2500 ####[facility] [address] [place], [place], [id number] Serum glucose measurement (m ass/volume)Ordered By: Vincent Flores on 03-02-2025 Glucose [Mass/Vol] 193 mg/dL High 70-99 [facility] Comment on above: Performed By: #### L 500.2500 ####[facility] [address] [place], [place], [address] Serum or plasma calcium bijan urement (mass/volume)Ordered By: Vincent Flores on 03-02-2025 Calcium [Mass/Vol] 9.4 mg/dL Normal 7.6-11.0 [facility] Comment on above: Performed By: #### L 500.2500 ####[facility] [address] [place], [address] Serum or plasma urea nitroge n measurement (mass/volume)Ordered By: Vincent Flores on 03-02-2025 Urea nitrogen [Mass/Vol] 81 mg/dL High 4-19 [facility] Comment on above: Performed By: #### L 500.2500 ####[facility] [address] [place], [address] Sodium levelOrdered By: Vincent Flores on 03-02-2025 Sodium [Moles/Vol] 133 mmol/L Normal 133-145 [facility] Comment on above: Performed By: #### L 500.2500 ####[facility] [address] [place], [address] Urine Cultureon 03-02-2025 URC Normal [facility] Comment on above: Performed By: #### L 500.4050, L503.7505, L501.9520, L400.0001, L100.0100, M100.2200 ####[facility] [address] [place], [address] Wound Ctr History AND Physic apollo 03-01-2025 Wound Ctr History & Physical Normal [facility] Absolute lymphocyte countOrd ered By: Vincent Flores on 02-27-2025 Lymphocytes Auto (Unsp spec) [#/Vol] 1.36 10*3/uL 0.83-4.51 [facility] Anion gap in Serum or Plasma Ordered By: Vincent Flores on 02-27-2025 Anion gap [Moles/Vol] 18 mmol/L High 5-15 [facility] Automated lymphocyte count a s percentage of total leukocytesOrdered By: Vincent Flores on 02-27-2025 Lymphocytes/100 WBC Auto (Unsp spec) 19.4 % 19-41 [facility] BUN/creatinine ratioOrdered By: Vincent Flores on 02-27-2025 Urea nitrogen/Creatinine [Mass ratio] 56.8 mg/mg High 10-20 [facility] Basophil percentageOrdered B y: Vincent Flores on 02-27-2025 Basophils/100 WBC (Bld) 0.7 % 0-1 [facility] Bilirubin Test strip Ql (U)O rdered By: Vincent Flores on 02-27-2025 Bilirubin Ql (U) Negative Negative [facility] Bilirubin, totalOrdered By: Vincent Flores on 02-27-2025 Bilirubin [Mass/Vol] 1.42 mg/dL High 0.00-1.30 [facility] Comment on above: Performed By: #### L 500.4050, L503.7505, L501.9520, L400.0001, L100.0100, M100.2200 ####[facility] [address] [place], [place], [id number] Blood manual differential co mment interpretation (narrative result)Ordered By: Vincent Flores on 02-27-2025 Manual differential comment Cristhian (Bld) [Interp] SCANNED [facility] Blood polychromasia detectio n by light microscopyOrdered By: Vnicent Flores on 02-27-2025 Polychromasia LM Ql (Bld) RARE [facility] CBC W/Diff, Automatedon 02-03 Anisocytosis Ql (Bld) 2+ Normal [facility] Comment on above: Performed By: #### L 500.4050, L503.7505, L501.9520, L400.0001, L100.0100, M100.2200 ####[facility] [address] [place], [place], [address] POLYCHROMASIA RARE Normal [facility] Comment on above: Performed By: #### L 500.4050, L503.7505, L501.9520, L400.0001, L100.0100, M100.2200 ####[facility] [address] [place], [place], [address] SMEAR COMMENT SCANNED Normal [facility] Comment on above: Performed By: #### L 500.4050, L503.7505, L501.9520, L400.0001, L100.0100, M100.2200 ####[facility] [address] [place], [address] Carbon dioxide, total [Moles /volume] in Central venous bloodOrdered By: Vincent Flores on 02-27-2025 CO2 [Moles/Vol] 25.4 mmol/L Normal 21.0-32.0 [facility] Comment on above: Performed By: #### L 500.4050, L503.7505, L501.9520, L400.0001, L100.0100, M100.2200 ####[facility] [address] [place], [address] Chloride assayOrdered By: Ishmael Flores on 02-27-2025 Chloride [Moles/Vol] 90 mmol/L Low 98-108 [facility] Comment on above: Performed By: #### L 500.4050, L503.7505, L501.9520, L400.0001, L100.0100, M100.2200 ####[facility] [address] [place], [address] Comprehensive Metabolic Prof ilon 02-27-2025 ALK PHOS 123 U/L High 35-104 [facility] Comment on above: Performed By: #### L 500.4050, L503.7505, L501.9520, L400.0001, L100.0100, M100.2200 ####[facility] [address] [place], [address] AST [Catalytic activity/Vol] 50 U/L High <=31 [facility] Comment on above: Performed By: #### L 500.4050, L503.7505, L501.9520, L400.0001, L100.0100, M100.2200 ####[facility] [address] [place], [address] BUN/CRE 56.8 RATIO High 10-20 [facility] Comment on above: Performed By: #### L 500.4050, L503.7505, L501.9520, L400.0001, L100.0100, M100.2200 ####[facility] [address] [place], [address] GAP 18 High 5-15 [facility] Comment on above: Performed By: #### L 500.4050, L503.7505, L501.9520, L400.0001, L100.0100, M100.2200 ####[facility] [address] [place], [address] Potassium [Moles/Vol] 3.6 mmol/L Normal 3.3-5.1 [facility] Comment on above: Performed By: #### L 500.4050, L503.7505, L501.9520, L400.0001, L100.0100, M100.2200 ####[facility] [address] [place], [address] T PROT 7.5 g/dL Normal 5.9-8.4 [facility] Comment on above: Performed By: #### L 500.4050, L503.7505, L501.9520, L400.0001, L100.0100, M100.2200 ####[facility] [address] [place], [address] Eosinophil percentageOrdered By: Vincent Mark on 02-27-2025 Eosinophils/100 WBC (Bld) 1.0 % 0-5 [facility] Erythrocyte distribution wid th ratioOrdered By: Vincent Flores on 02-27-2025 Erythrocyte distribution width (RBC) [Ratio] 24.3 % High 11.6-14.6 [facility] Erythrocyte distribution wid th standard deviationOrdered By: [facility] on 02-27-2025 Erythrocyte distribution width (RBC) [Ratio] 76.4 fl High 35.1-43.9 [facility] Glomerular filtration rate ( GFR) estimation/1.73 sq m using serum, plasma, or whole bOrdered By: Vincent Flores on 02-27-2025 GFR/1.73 sq M.predicted among non-blacks MDRD (S/P/Bld) [Vol rate/Area] 27 mL/min/{1.73_m2} Low >60 [facility] Comment on above: Result Comment: mL/m in/1.73m2 CKD-EPI Creatinine Equation (2020) Performed By: #### L 500.4050, L503.7505, L501.9520, L400.0001, L100.0100, M100.2200 ####[facility] [address] [place], [place], [id number] Hematocrit Auto (Bld) [Volum e fraction]Ordered By: Vincent Flores on 02-27-2025 Hematocrit (Bld) [Volume fraction] 26.0 % Low 37-47 [facility] Hemoglobin measurementOrdere d By: Vincent Flores on 02-27-2025 Hemoglobin (Bld) [Mass/Vol] 8.4 g/dL Low 12.0-15.0 [facility] Immature granulocytes/100 WB C Auto (Bld)Ordered By: Vincent Flores 02-27-2025 Immature granulocytes/100 WBC (Bld) 0.300 % 0.0-0.9 [facility] Ketones Test strip Ql (U)Ord ered By: Vincent Flores 02-27-2025 Ketones Ql (U) Negative Negative [facility] MCV (mean corpuscular volume ) determinationOrdered By: Vincent Flores 02-27-2025 MCV (RBC) [Entitic vol] 87.5 fL 81-99 [facility] Mean corpuscular hemoglobin (MCH) determinationOrdered By: Vincent Flores 02-27-2025 MCH (RBC) [Entitic mass] 28.3 pg 27.0-32.0 [facility] Monocyte percentageOrdered B y: Vincent Flores on 02-27-2025 Monocytes/100 WBC (Bld) 11.7 % High 0-10 [facility] Mucus LM Ql (Urine sed)Order ed By: Vincent Flores on 02-27-2025 Mucus Ql (Urine sed) 0 SEEN /hpf [facility] Natriuretic peptide.B prohor daria N-Terminal [Mass/volume] in Serum or PlasmaOrdered By: Vincent Flores on 02-27-2025 Natriuretic peptide.B prohormone N-Terminal [Mass/Vol] 9003 pg/mL High <1800 [facility] Neutrophil percentageOrdered By: Vincent Flores on 02-27-2025 Neutrophils/100 WBC (Bld) 66.9 % 47-70 [facility] Nitrite Test strip Ql (U)Ord ered By: Vincent Flores on 02-27-2025 Nitrite Ql (U) Negative Negative [facility] No Panel InformationOrdered By: Vincent Flores on 02-27-2025 2+ [facility] 50 U/L High <32 [facility] Platelet countOrdered By: Ishmael Flores on 02-27-2025 Platelets (Bld) [#/Vol] 181 10*3/uL 150-450 [facility] Potassium measurement (mass/ volume)Ordered By: Vincent lFores on 02-27-2025 Potassium (Unsp spec) [Mass/Vol] 3.6 mmol/L 3.3-5.1 [facility] Pro- Brain NATRIURETIC PEPTI Drew 02-27-2025 Natriuretic peptide B (Bld) [Mass/Vol] 9003 pg/mL High <=1800 [facility] Comment on above: Result Comment: Hear t Failure Unlikely: < 300 pg/mLHeart Failure Likely< 50 Years: > 450 pg/mL50-75 Years: > 900 pg/mL>75 Years: > 1800 pg/mL Performed By: #### L 500.4050, L503.7505, L501.9520, L400.0001, L100.0100, M100.2200 ####[facility] [address] [place], [address] Protein Test strip Ql (U)Ord ered By: Vincent Flores on 02-27-2025 Protein Ql (U) 30 mg/dl High Negative [facility] RBC Auto (Bld) [#/Vol]Ordere d By: Vincent Flores on 02-27-2025 RBC (Bld) [#/Vol] 2.97 10*6/uL Low 4.2-5.4 [facility] Serum creatinine measurement (mass/volume)Ordered By: Vincent Flores on 02-27-2025 Creatinine [Mass/Vol] 1.90 mg/dL High 0.70-1.20 [facility] Comment on above: Performed By: #### L 500.4050, L503.7505, L501.9520, L400.0001, L100.0100, M100.2200 ####[facility] [address] [place], [address] Serum globulin measurementOr dered By: Vincent Flores on 02-27-2025 Globulin (S) [Mass/Vol] 3.4 g/dL Normal 2.2-4.2 [facility] [place] [facility] Comment on above: Performed By: #### L 500.4050, L503.7505, L501.9520, L400.0001, L100.0100, M100.2200 ####[facility] [address] [place], [address] Serum glucose measurement (m ass/volume)Ordered By: Vincent Flores on 02-27-2025 Glucose [Mass/Vol] 290 mg/dL High 70-99 [facility] Comment on above: Performed By: #### L 500.4050, L503.7505, L501.9520, L400.0001, L100.0100, M100.2200 ####[facility] [address] [place], [address] Serum or plasma alanine craven otransferase (ALT) measurementOrdered By: Vincent Flores on 02-27-2025 ALT [Catalytic activity/Vol] 33 U/L Normal <=34 [facility] Comment on above: Performed By: #### L 500.4050, L503.7505, L501.9520, L400.0001, L100.0100, M100.2200 ####[facility] [address] [place], [address] Serum or plasma albumin bijan urement (mass/volume)Ordered By: Vincent Flores on 02-27-2025 Albumin [Mass/Vol] 4.1 g/dL Normal 3.4-4.8 [facility] Comment on above: Performed By: #### L 500.4050, L503.7505, L501.9520, L400.0001, L100.0100, M100.2200 ####[facility] [address] [place], [address] Serum or plasma albumin/glob ulin mass ratioOrdered By: Vincent Flores on 02-27-2025 Albumin/Globulin [Mass ratio] 1.2 {ratio} Normal 0.9-2.4 [facility] Comment on above: Performed By: #### L 500.4050, L503.7505, L501.9520, L400.0001, L100.0100, M100.2200 ####[facility] [address] [place], [address] Serum or plasma alkaline da sphatase measurementOrdered By: Vincent Flores on 02-27-2025 ALP [Catalytic activity/Vol] 123 U/L High 35-104 [facility] Serum or plasma calcium bijan urement (mass/volume)Ordered By: Vincent Flores on 02-27-2025 Calcium [Mass/Vol] 9.9 mg/dL Normal 7.6-11.0 [facility] Comment on above: Performed By: #### L 500.4050, L503.7505, L501.9520, L400.0001, L100.0100, M100.2200 ####[facility] [address] [place], [address] Serum or plasma urea nitroge n measurement (mass/volume)Ordered By: Vincent Flores on 02-27-2025 Urea nitrogen [Mass/Vol] 108 mg/dL Invalid Interpretation Code 10-21 [facility] Comment on above: Result Comment: Crit ical Result(s) Called at: by: DR. FLORES??Results readback by same. Performed By: #### L 500.4050, L503.7505, L501.9520, L400.0001, L100.0100, M100.2200 ####[facility] [address] [place], [place], [id number] Sodium levelOrdered By: Vincent Flores on 02-27-2025 Sodium [Moles/Vol] 134 mmol/L Normal 133-145 [facility] Comment on above: Performed By: #### L 500.4050, L503.7505, L501.9520, L400.0001, L100.0100, M100.2200 ####[facility] [address] [place], [address] Squamous epithelial cells de tection in urine sediment by light microscopyOrdered By: Vincent Flores on 02-27-2025 Epithelial cells.squamous LM Ql (Urine sed) 0 SEEN /hpf 5-10 [facility] TSH DL <= 0.005 mIU/L QnOrde red By: Vincent Flores on 02-27-2025 TSH Qn 3.010 uIU/mL 0.300-4.200 [facility] Thyroid Stim Hormone (TSH)on 02-27-2025 TSH 3.010 uIU/mL Normal 0.300-4.200 [facility] Comment on above: Performed By: #### L 500.4050, L503.7505, L501.9520, L400.0001, L100.0100, M100.2200 ####[facility] [address] [place], [place], [id number] Total proteinOrdered By: Vincent Flores on 02-27-2025 Protein [Mass/Vol] 7.5 g/dL 5.9-8.4 [facility] Urinalysis, Completeon 02-27 EPI,RENAL 0-5 SEEN Normal 0-5 [facility] Comment on above: Order Comment: Urine , Random Performed By: #### L 500.4050, L503.7505, L501.9520, L400.0001, L100.0100, M100.2200 ####[facility] [address] [place], [address] BACTERIA 0 SEEN Normal None Seen [facility] Comment on above: Order Comment: Urine , Random Performed By: #### L 500.4050, L503.7505, L501.9520, L400.0001, L100.0100, M100.2200 ####[facility] [address] [place], [address] EPI,SQUAMOUS 0 SEEN Normal 5-10 [facility] Comment on above: Order Comment: Urine , Random Performed By: #### L 500.4050, L503.7505, L501.9520, L400.0001, L100.0100, M100.2200 ####[facility] [address] [place], [address] Mucus Ql (Urine sed) 0 SEEN Normal [facility] Comment on above: Order Comment: Urine , Random Performed By: #### L 500.4050, L503.7505, L501.9520, L400.0001, L100.0100, M100.2200 ####[facility] [address] [place], [address] RBC 0 SEEN Normal 0-5 [facility] Comment on above: Order Comment: Urine , Random Performed By: #### L 500.4050, L503.7505, L501.9520, L400.0001, L100.0100, M100.2200 ####[facility] [address] [place], [address] WBC 0 SEEN Normal 0-5 [facility] Comment on above: Order Comment: Urine , Random Performed By: #### L 500.4050, L503.7505, L501.9520, L400.0001, L100.0100, M100.2200 ####[facility] [address] [place], [address] Urine clarityOrdered By: Vincent Flores on 02-27-2025 Clarity (U) Sl. Cloudy Clear [facility] Urine color determinationOrd ered By: Vincent Flores on 02-27-2025 Color (U) Yellow Yellow [facility] Urine cultureOrdered By: Vincent Flores on 02-27-2025 Bacteria identified Cx Nom (U) ESBL Escherichia coli Abnormal [facility] Bacteria identified Cx Nom (U) ESBL Escherichia coli Abnormal [facility] Urine glucose detectionOrder ed By: Vincent Flores on 02-27-2025 Glucose Ql (U) Normal mg/dl Normal [facility] Urine leukocyte esterase det ection by dipstickOrdered By: Vincent Flores on 02-27-2025 Leukocyte esterase Test strip Ql (U) Negative Negative [facility] Urine pHOrdered By: Vincent Flores on 02-27-2025 pH (U) 6.5 [pH] 5.0 - 8.0 [facility] Urine sediment bacteria coun t by microscopy (number/high power field)Ordered By: Vincent Flores on 02-27-2025 Bacteria LM.HPF (Urine sed) [#/Area] 0 /[HPF] None Seen [facility] Urine sediment renal epithel ial cell count by microscopy (number/high power field)Ordered By: Vincent Flores on 02-27-2025 Epithelial cells.renal LM.HPF (Urine sed) [#/Area] 0 /[HPF] 0-5 [facility] Urine specific gravity measu rementOrdered By: Vincent Flores on 02-27-2025 Specific gravity (U) [Rel density] 1.010 1.002-1.030 [facility] Urine urobilinogen measureme ntOrdered By: Vincent Flores on 02-27-2025 Urobilinogen Ql (U) Normal mg/dl Normal [facility] White blood cell (WBC) count Ordered By: Vincent Flores on 02-27-2025 WBC (Bld) [#/Vol] 7.0 10*3/uL 4.4-11.0 [facility] White blood cell countOrdere d By: Vincent Flores on 02-27-2025 White blood cell count 0 SEEN /hpf 0-5 [facility] [place] [facility] Absolute lymphocyte countOrd ered By: Vincent Flores on 02-21-2025 Lymphocytes Auto (Unsp spec) [#/Vol] 1.96 10*3/uL 0.83-4.51 [facility] Anion gap in Serum or Plasma Ordered By: Vincent Flores on 02-21-2025 Anion gap [Moles/Vol] 18 mmol/L High 5-15 [facility] Automated lymphocyte count a s percentage of total leukocytesOrdered By: Vincent Flores on 02-21-2025 Lymphocytes/100 WBC Auto (Unsp spec) 27.8 % 19-41 [facility] BUN/creatinine ratioOrdered By: Vincent Flores on 02-21-2025 Urea nitrogen/Creatinine [Mass ratio] 44.3 mg/mg High 04-23 [facility] Basic Metabolic Profile (BMP )on 02-21-2025 BUN/CRE 44.3 RATIO High 04-23 [facility] Comment on above: Performed By: #### L 500.2500, L503.7505, L100.0100 ####[facility] [address] [place], [address] Calcium [Mass/Vol] 9.6 mg/dL Normal 7.6-11.0 [facility] Comment on above: Performed By: #### L 500.2500, L503.7505, L100.0100 ####[facility] [address] [place], [address] Chloride [Moles/Vol] 89 mmol/L Low 98-108 [facility] Comment on above: Performed By: #### L 500.2500, L503.7505, L100.0100 ####[facility] [address] [place], [address] CO2 [Moles/Vol] 26.5 mmol/L Normal 21.0-32.0 [facility] Comment on above: Performed By: #### L 500.2500, L503.7505, L100.0100 ####[facility] [address] [place], [address] Creatinine [Mass/Vol] 1.98 mg/dL High 0.70-1.20 [facility] Comment on above: Performed By: #### L 500.2500, L503.7505, L100.0100 ####[facility] [address] [place], [address] GAP 18 High 5-15 [facility] Comment on above: Performed By: #### L 500.2500, L503.7505, L100.0100 ####[facility] [address] [place], [address] GFR/1.73 sq M.predicted among non-blacks MDRD (S/P/Bld) [Vol rate/Area] 25 mL/min/{1.73_m2} Low >60 [facility] Comment on above: Result Comment: mL/m in/1.73m2 CKD-EPI Creatinine Equation (2020) Performed By: #### L 500.2500, L503.7505, L100.0100 ####[facility] [address] [place], [address] Glucose [Mass/Vol] 118 mg/dL High 70-99 [facility] Comment on above: Performed By: #### L 500.2500, L503.7505, L100.0100 ####[facility] [address] [place], [address] Potassium [Moles/Vol] 3.2 mmol/L Low 3.3-5.1 [facility] Comment on above: Performed By: #### L 500.2500, L503.7505, L100.0100 ####[facility] [address] [place], [address] Sodium [Moles/Vol] 133 mmol/L Normal 133-145 [facility] Comment on above: Performed By: #### L 500.2500, L503.7505, L100.0100 ####[facility] [address] [place], [address] Urea nitrogen [Mass/Vol] 88 mg/dL High 4-19 [facility] Comment on above: Performed By: #### L 500.2500, L503.7505, L100.0100 ####[facility] [address] [place], [address] Basophil percentageOrdered B y: Vincent Flores on 02-21-2025 Basophils/100 WBC (Bld) 0.8 % 0-1 [facility] Blood manual differential co mment interpretation (narrative result)Ordered By: Vincent Flores on 02-21-2025 Manual differential comment Cristhian (Bld) [Interp] SCANNED [facility] Blood polychromasia detectio n by light microscopyOrdered By: Vincent Flores on 02-21-2025 Polychromasia LM Ql (Bld) 1+ [facility] CBC W/Diff, Automatedon 02-03 HYPOCHROMASIA 1+ Normal [facility] Comment on above: Performed By: #### L 500.2500, L503.7505, L100.0100 ####[facility] [address] [place], [address] Anisocytosis Ql (Bld) 2+ Normal [facility] Comment on above: Performed By: #### L 500.2500, L503.7505, L100.0100 ####[facility] [address] [place], [address] PLT EST ADEQUATE Normal ADEQ [facility] Comment on above: Performed By: #### L 500.2500, L503.7505, L100.0100 ####[facility] [address] [place], [address] POLYCHROMASIA 1+ Normal [facility] Comment on above: Performed By: #### L 500.2500, L503.7505, L100.0100 ####[facility] [address] [place], [address] SMEAR COMMENT SCANNED Normal [facility] Comment on above: Performed By: #### L 500.6413, L503.7502, L100.0100 ####[facility] [address] [place], [address] Carbon dioxide, total [Moles /volume] in Central venous bloodOrdered By: Vincent Flores on 02-21-2025 CO2 [Moles/Vol] 26.5 mmol/L 21.0-32.0 [facility] Chloride assayOrdered By: Ishmael Flores on 02-21-2025 Chloride [Moles/Vol] 89 mmol/L Low 98-108 [facility] Eosinophil percentageOrdered By: Vincent Flores 02-21-2025 Eosinophils/100 WBC (Bld) 1.4 % 0-5 [facility] Erythrocyte distribution wid th ratioOrdered By: Vincent Flores on 02-21-2025 Erythrocyte distribution width (RBC) [Ratio] 23.6 % High 11.6-14.6 [facility] Erythrocyte distribution wid th standard deviationOrdered By: Vincent Flores on 02-21-2025 Erythrocyte distribution width (RBC) [Ratio] 73.1 fl High 35.1-43.9 [facility] Glomerular filtration rate ( GFR) estimation/1.73 sq m using serum, plasma, or whole bOrdered By: Vincent Flores on 02-21-2025 GFR/1.73 sq M.predicted among non-blacks MDRD (S/P/Bld) [Vol rate/Area] 25 mL/min/{1.73_m2} Low >60 [facility] Hematocrit Auto (Bld) [Volum e fraction]Ordered By: Vincent Flores on 02-21-2025 Hematocrit (Bld) [Volume fraction] 31.5 % Low 37-47 [facility] Hemoglobin measurementOrdere d By: Vincent Flores 02-21-2025 Hemoglobin (Bld) [Mass/Vol] 10.1 g/dL Low 12.0-15.0 [facility] Hypochromatic red blood cell detectionOrdered By: Vincent Flores on 02-21-2025 Hypochromia Ql (Bld) 1+ [facility] Immature granulocytes/100 WB C Auto (Bld)Ordered By: Vincent Flores on 02-21-2025 Immature granulocytes/100 WBC (Bld) 0.300 % 0.0-0.9 [facility] MCV (mean corpuscular volume ) determinationOrdered By: Vincent Flores on 02-21-2025 MCV (RBC) [Entitic vol] 86.3 fL 81-99 [facility] Mean corpuscular hemoglobin (MCH) determinationOrdered By: Vincent Flores on 02-21-2025 MCH (RBC) [Entitic mass] 27.7 pg 27.0-32.0 [facility] Monocyte percentageOrdered B y: Vincent Flores on 02-21-2025 Monocytes/100 WBC (Bld) 14.3 % High 0-10 [facility] Natriuretic peptide.B prohor daria N-Terminal [Mass/volume] in Serum or PlasmaOrdered By: Vincent Flores on 02-21-2025 Natriuretic peptide.B prohormone N-Terminal [Mass/Vol] 74259 pg/mL High <1800 [facility] Neutrophil percentageOrdered By: Vincent Flores on 02-21-2025 Neutrophils/100 WBC (Bld) 55.4 % 47-70 [facility] No Panel InformationOrdered By: Vincent Flores on 02-21-2025 2+ [facility] Platelet countOrdered By: Ishmael Flores on 02-21-2025 Platelets (Bld) [#/Vol] 170 10*3/uL 150-450 [facility] Platelet estimateOrdered By: Vincent Flores on 02-21-2025 Platelets LM Ql (Bld) ADEQUATE ADEQ [facility] Potassium measurement (mass/ volume)Ordered By: Vincent Flores on 02-21-2025 Potassium (Unsp spec) [Mass/Vol] 3.2 mmol/L Low 3.3-5.1 [facility] Pro- Brain NATRIURETIC PEPTI Drew 02-21-2025 Natriuretic peptide B (Bld) [Mass/Vol] 53404 pg/mL High <=1800 [facility] Comment on above: Result Comment: Hear t Failure Unlikely: < 300 pg/mLHeart Failure Likely< 50 Years: > 450 pg/mL50-75 Years: > 900 pg/mL>75 Years: > 1800 pg/mL Performed By: #### L 500.2500, L503.7505, L100.0100 ####[facility] [address] [place], [address] RBC Auto (Bld) [#/Vol]Ordere d By: Vincent Flores on 02-21-2025 RBC (Bld) [#/Vol] 3.65 10*6/uL Low 4.2-5.4 [facility] Serum creatinine measurement (mass/volume)Ordered By: Vincent Flores on 02-21-2025 Creatinine [Mass/Vol] 1.98 mg/dL High 0.70-1.20 [facility] Serum glucose measurement (m ass/volume)Ordered By: Vincent Flores on 02-21-2025 Glucose [Mass/Vol] 118 mg/dL High 70-99 [facility] Serum or plasma calcium bijan urement (mass/volume)Ordered By: Vincent Flores on 02-21-2025 Calcium [Mass/Vol] 9.6 mg/dL 7.6-11.0 [facility] Serum or plasma urea nitroge n measurement (mass/volume)Ordered By: Vincent Flores on 02-21-2025 Urea nitrogen [Mass/Vol] 88 mg/dL High 4-19 [facility] Sodium levelOrdered By: Vincent Flores on 02-21-2025 Sodium [Moles/Vol] 133 mmol/L 133-145 [facility] White blood cell (WBC) count Ordered By: Vincent Flores on 02-21-2025 WBC (Bld) [#/Vol] 7.1 10*3/uL 4.4-11.0 [facility] 12 Lead EKGon 02-16-2025 12 Lead EKG Normal [facility] Absolute lymphocyte countOrd ered By: Magdy Pang on 02-16-2025 Lymphocytes Auto (Unsp spec) [#/Vol] 1.41 10*3/uL 0.83-4.51 [facility] Absolute neutrophil countOrd ered By: Magdy Pang on 02-16-2025 Neutrophils (Bld) [#/Vol] 3.7 10*3/uL 2.0-7.7 [facility] Anion gap in Serum or Plasma Ordered By: Magdy Pang on 02-16-2025 Anion gap [Moles/Vol] 15 mmol/L - [facility] Automated lymphocyte count a s percentage of total leukocytesOrdered By: Magdy Pang on 02-16-2025 Lymphocytes/100 WBC Auto (Unsp spec) 23.2 % [facility] BUN/creatinine ratioOrdered By: Magdy Pang on 02-16-2025 Urea nitrogen/Creatinine [Mass ratio] 33.4 mg/mg High 04-23 [facility] Basic Metabolic Profile (BMP )on 02-16-2025 BUN/CRE 33.4 RATIO High 04-23 [facility] Comment on above: Performed By: #### L 500.2500, L503.7505, L100.0100, L501.4021 ####[facility] [address] [place], [address] Calcium [Mass/Vol] 9.5 mg/dL Normal 7.6-11.0 [facility] Comment on above: Performed By: #### L 500.2500, L503.7505, L100.0100, L501.4021 ####[facility] [address] [place], [address] Chloride [Moles/Vol] 92 mmol/L Low 98-108 [facility] Comment on above: Performed By: #### L 500.2500, L503.7505, L100.0100, L501.4021 ####[facility] [address] [place], [address] CO2 [Moles/Vol] 23.9 mmol/L Normal 21.0-32.0 [facility] Comment on above: Performed By: #### L 500.2500, L503.7505, L100.0100, L501.4021 ####[facility] [address] [place], [address] Creatinine [Mass/Vol] 2.04 mg/dL High 0.70-1.20 [facility] Comment on above: Performed By: #### L 500.2500, L503.7505, L100.0100, L501.4021 ####[facility] [address] [place], [address] ECRCL 20.45 ml/min Low 50-250 [facility] Comment on above: Performed By: #### L 500.2500, L503.7505, L100.0100, L501.4021 ####[facility] [address] [place], [address] GAP 15 Normal 5-15 [facility] Comment on above: Performed By: #### L 500.2500, L503.7505, L100.0100, L501.4021 ####[facility] [address] [place], [address] GFR/1.73 sq M.predicted among non-blacks MDRD (S/P/Bld) [Vol rate/Area] 24 mL/min/{1.73_m2} Low >60 [facility] Comment on above: Result Comment: mL/m in/1.73m2 CKD-EPI Creatinine Equation (2020) Performed By: #### L 500.2500, L503.7505, L100.0100, L501.4021 ####[facility] [address] [place], [address] Glucose [Mass/Vol] 129 mg/dL High 70-99 [facility] Comment on above: Performed By: #### L 500.2500, L503.7505, L100.0100, L501.4021 ####[facility] [address] [place], [address] Potassium [Moles/Vol] 3.9 mmol/L Normal 3.3-5.1 [facility] Comment on above: Performed By: #### L 500.2500, L503.7505, L100.0100, L501.4021 ####[facility] [address] [place], [address] Sodium [Moles/Vol] 131 mmol/L Low 133-145 [facility] Comment on above: Performed By: #### L 500.2500, L503.7505, L100.0100, L501.4021 ####[facility] [address] [place], [address] Urea nitrogen [Mass/Vol] 68 mg/dL High 4-19 [facility] Comment on above: Performed By: #### L 500.2500, L503.7505, L100.0100, L501.4021 ####[facility] [address] [place], [address] Basophil percentageOrdered B y: Magdy Pang on 02-16-2025 Basophils/100 WBC (Bld) 1.0 % 0-1 [facility] Blood manual differential co mment interpretation (narrative result)Ordered By: Magdy Pang on 02-16-2025 Manual differential comment Cristhian (Bld) [Interp] SCANNED [facility] Blood polychromasia detectio n by light microscopyOrdered By: Magdy Pang on 02-16-2025 Polychromasia LM Ql (Bld) 1+ [facility] CBC W/Diff, Automatedon 02-02 HYPOCHROMASIA 1+ Normal [facility] Comment on above: Performed By: #### L 500.2500, L503.7505, L100.0100, L501.4021 ####[facility] [address] [place], [address] POLYCHROMASIA 1+ Normal [facility] Comment on above: Performed By: #### L 500.2500, L503.7505, L100.0100, L501.4021 ####[facility] [address] [place], [address] Anisocytosis Ql (Bld) 2+ Normal [facility] Comment on above: Performed By: #### L 500.2500, L503.7505, L100.0100, L501.4021 ####[facility] [address] [place], [address] PLT EST SLT DEC Normal ADEQ [facility] Comment on above: Performed By: #### L 500.2500, L503.7505, L100.0100, L501.4021 ####[facility] [address] [place], [address] SMEAR COMMENT SCANNED Normal [facility] Comment on above: Performed By: #### L 500.2500, L503.7505, L100.0100, L501.4021 ####[facility] [address] [place], [address] Carbon dioxide, total [Moles /volume] in Central venous bloodOrdered By: Magdy Pang on 02-16-2025 CO2 [Moles/Vol] 23.9 mmol/L 21.0-32.0 [facility] Chest PA and Lateralon 02-16 Chest PA and Lateral Normal [facility] Chloride assayOrdered By: Rancho Pang on 02-16-2025 Chloride [Moles/Vol] 92 mmol/L Low 98-108 [facility] Emergency Department Summary on 02-16-2025 Emergency Department Summary Normal [facility] Eosinophil percentageOrdered By: Magdy Pang on 02-16-2025 Eosinophils/100 WBC (Bld) 1.2 % 0-5 [facility] Erythrocyte distribution wid th ratioOrdered By: Magdy Pang on 02-16-2025 Erythrocyte distribution width (RBC) [Ratio] 24.4 % High 11.6-14.6 [facility] Erythrocyte distribution wid th standard deviationOrdered By: Magdy Pang on 02-16-2025 Erythrocyte distribution width (RBC) [Ratio] 76.4 fl High 35.1-43.9 [facility] Glomerular filtration rate ( GFR) estimation/1.73 sq m using serum, plasma, or whole bOrdered By: Magdy Pang on 02-16-2025 GFR/1.73 sq M.predicted among non-blacks MDRD (S/P/Bld) [Vol rate/Area] 24 mL/min/{1.73_m2} Low >60 [facility] Comment on above: mL/min/1.73m2 CKD-EP I Creatinine Equation (2020) Hematocrit Auto (Bld) [Volum e fraction]Ordered By: Magdy Pang on 02-16-2025 Hematocrit (Bld) [Volume fraction] 32.2 % Low 37-47 [facility] Hemoglobin measurementOrdere d By: Magdy Pang on 02-16-2025 Hemoglobin (Bld) [Mass/Vol] 10.3 g/dL Low 12.0-15.0 [facility] Hypochromatic red blood cell detectionOrdered By: Magdy Pang on 02-16-2025 Hypochromia Ql (Bld) 1+ [facility] Immature granulocytes/100 WB C Auto (Bld)Ordered By: Magdy Pang on 02-16-2025 Immature granulocytes/100 WBC (Bld) 0.300 % 0.0-0.9 [facility] Comment on above: IG% - Immature Granu locytes (promyelocytes, myelocytes and metamyelocytes) > 1% indicates that a LEFT SHIFT is Present. L501.4021on 02-16-2025 Trop T High Sen 94 ng/L Invalid Interpretation Code <=14 [facility] Comment on above: Result Comment: Crit ical Result(s) Called at 1447: by: JOSH MARI. ??Results read back by same. Performed By: #### L 500.2500, L503.7505, L100.0100, L501.4021 ####[facility] [address] [place], [place], [id number] Laboratory - Hematology and Cell countsOrdered By: Magdy Pang on 02-16-2025 Anisocytosis Ql (Bld) 2+ [facility] MCV (mean corpuscular volume ) determinationOrdered By: Magdy Pang on 02-16-2025 MCV (RBC) [Entitic vol] 87.0 fL 81-99 [facility] Mean corpuscular hemoglobin (MCH) determinationOrdered By: Magdy Pang on 02-16-2025 MCH (RBC) [Entitic mass] 27.8 pg 27.0-32.0 [facility] Mean corpuscular hemoglobin concentration (MCHC) determinationOrdered By: Magdy Pang on 02-16-2025 MCHC (RBC) [Mass/Vol] 32.0 g/dL 32-36 [facility] Mean platelet volume determi nationOrdered By: Magdy Pang on 02-16-2025 Platelet mean volume (Bld) [Entitic vol] 9.5 fL 6.2-12.0 [facility] Monocyte percentageOrdered B y: Magdy Pang on 02-16-2025 Monocytes/100 WBC (Bld) 13.7 % High 0-10 [facility] Natriuretic peptide.B prohor daria N-Terminal [Mass/volume] in Serum or PlasmaOrdered By: Magdy Pang on 02-16-2025 Natriuretic peptide.B prohormone N-Terminal [Mass/Vol] 28322 pg/mL High <1800 [facility] Comment on above: Heart Failure Unlike ly: < 300 pg/mLHeart Failure Likely< 50 Years: > 450 pg/mL50-75 Years: > 900 pg/mL>75 Years: > 1800 pg/mL Neutrophil percentageOrdered By: Magdy Pang on 02-16-2025 Neutrophils/100 WBC (Bld) 60.6 % 47-70 [facility] No Panel InformationOrdered By: Magdy Pang on 02-16-2025 2+ [facility] Nucleated red blood cell per centageOrdered By: Magdy Pang on 02-16-2025 Nucleated RBC/100 WBC (Bld) [Ratio] 0 % 0-5 [facility] Platelet countOrdered By: Rancho Pang on 02-16-2025 Platelets (Bld) [#/Vol] 139 10*3/uL Low 150-450 [facility] Platelet estimateOrdered By: Magdy Pang on 02-16-2025 Platelets LM Ql (Bld) SLT DEC ADEQ [facility] Potassium measurement (mass/ volume)Ordered By: Magdy Pang on 02-16-2025 Potassium (Unsp spec) [Mass/Vol] 3.9 mmol/L 3.3-5.1 [facility] Pro- Brain NATRIURETIC PEPTI Drew 02-16-2025 Natriuretic peptide B (Bld) [Mass/Vol] 12964 pg/mL High <=1800 [facility] Comment on above: Result Comment: Hear t Failure Unlikely: < 300 pg/mLHeart Failure Likely< 50 Years: > 450 pg/mL50-75 Years: > 900 pg/mL>75 Years: > 1800 pg/mL Performed By: #### L 500.2500, L503.7505, L100.0100, L501.4021 ####[facility] [address] [place], [address] RBC Auto (Bld) [#/Vol]Ordere d By: Magdy Pang on 02-16-2025 RBC (Bld) [#/Vol] 3.70 10*6/uL Low 4.2-5.4 [facility] Serum creatinine measurement (mass/volume)Ordered By: Magdy Pang on 02-16-2025 Creatinine [Mass/Vol] 2.04 mg/dL High 0.70-1.20 [facility] Serum glucose measurement (m ass/volume)Ordered By: Magdy Pang on 02-16-2025 Glucose [Mass/Vol] 129 mg/dL High 70-99 [facility] Serum or plasma calcium bijan urement (mass/volume)Ordered By: Magdy Pang on 02-16-2025 Calcium [Mass/Vol] 9.5 mg/dL 7.6-11.0 [facility] Serum or plasma urea nitroge n measurement (mass/volume)Ordered By: Madgy Pang on 02-16-2025 Urea nitrogen [Mass/Vol] 68 mg/dL High 4-19 [facility] Sodium levelOrdered By: Magdy Pang on 02-16-2025 Sodium [Moles/Vol] 131 mmol/L Low 133-145 [facility] Troponin T HS 2 HRon 025 Trop T High Sen 88 ng/L Invalid Interpretation Code <=14 [facility] Comment on above: Result Comment: Crit ical Result(s) Called at 1627: by: JOSH TREJO. ??Results read back by same. Performed By: #### L 499.0042 ####[facility] [address] [place], [address] Troponin T HS 4 HRon 025 Trop T High Sen Normal <=14 [facility] Comment on above: Result Comment: JENARO ENT DISCHARGED Performed By: #### L 499.0043 ####[facility] [address] [place], [address] Troponin T.cardiac [Mass/vol ume] in Serum or Plasma by High sensitivity methodOrdered By: Magdy Pang on 02-16-2025 Troponin T.cardiac High sensitivity method [Mass/Vol] 88 ng/L Critically high <14 [facility] Comment on above: Critical Result(s) C alled at 1627: by: JOSH WORKMAN TO MARTA. Results read back by same. Troponin T.cardiac High sensitivity method [Mass/Vol] 94 ng/L Critically high <14 [facility] Comment on above: Delta: 71 on 5-1300Critical Result(s) Called at 1447: by: JOSH WORKMAN TO LIN. Results read back by same. White blood cell (WBC) count Ordered By: Magdy Pang on 02-16-2025 WBC (Bld) [#/Vol] 6.1 10*3/uL 4.4-11.0 [facility] CRP, High Sensitivity [id number] on 02-15-2025 CRP, HIGH SENS 41.42 mg/L High 0.00-3.00 [facility] Comment on above: Result Comment: Resu lts confirmed ondilution. Relative Risk for Future Cardiovascular Event Low <1.00 Average 1.00 - 3.00 High >3.00Performed at: - [facility] [id number] Director: Chuy Rizvi PhD, Phone: [phone] Performed By: #### L 101.9900, L501.9520, L501.7300, L100.0100, L501.7400, L500.4050, L501.5500, L3100.6970 ####[facility] [address] [place], [address] Absolute lymphocyte countOrd ered By: Vincent Flores on 02-13-2025 Lymphocytes Auto (Unsp spec) [#/Vol] 1.58 10*3/uL 0.83-4.51 [facility] Absolute neutrophil countOrd ered By: Vincent Flores on 02-13-2025 Neutrophils (Bld) [#/Vol] 5.1 10*3/uL 2.0-7.7 [facility] Anion gap in Serum or Plasma Ordered By: Vincent Flores on 02-13-2025 Anion gap [Moles/Vol] 17 mmol/L High 5-15 [facility] Automated lymphocyte count a s percentage of total leukocytesOrdered By: Vincent Flores on 02-13-2025 Lymphocytes/100 WBC Auto (Unsp spec) 20.6 % 19-41 [facility] BUN/creatinine ratioOrdered By: Vincent Flores on 02-13-2025 Urea nitrogen/Creatinine [Mass ratio] 27.4 mg/mg High 10-20 [facility] Basophil percentageOrdered B y: Vincent Flores on 02-13-2025 Basophils/100 WBC (Bld) 0.7 % 0-1 [facility] Bilirubin, totalOrdered By: Vincnet Flores on 02-13-2025 Bilirubin [Mass/Vol] 1.18 mg/dL 0.00-1.30 [facility] Blood manual differential co mment interpretation (narrative result)Ordered By: Vincent Flores on 02-13-2025 Manual differential comment Cristhian (Bld) [Interp] SCANNED [facility] Blood polychromasia detectio n by light microscopyOrdered By: Vincent Flores on 02-13-2025 Polychromasia LM Ql (Bld) 1+ [facility] C-reactive protein measureme nt by high sensitivity methodOrdered By: Vincent Flores on 02-13-2025 C-reactive protein measurement by high sensitivity method 41.42 mg/L High 0.00-3.00 [facility] Comment on above: Results confirmed on dilution. Relative Risk for Future Cardiovascular Event Low <1.00 Average 1.00 - 3.00 High >3.00Performed at: [facility] [id number] Director: Chuy Rizvi PhD, Phone: [phone] CBC W/Diff, Automatedon 02-02 HYPOCHROMASIA 2+ Normal [facility] Comment on above: Performed By: #### L 101.9900, L501.9520, L501.7300, L100.0100, L501.7400, L500.4050, L501.5500, L3100.7870 ####[facility] [address] [place], [address] Anisocytosis Ql (Bld) 2+ Normal [facility] Comment on above: Performed By: #### L 101.9900, L501.9520, L501.7300, L100.0100, L501.7400, L500.4050, L501.5500, L3100.7870 ####[facility] [address] [place], [address] POLYCHROMASIA 1+ Normal [facility] Comment on above: Performed By: #### L 101.9900, L501.9520, L501.7300, L100.0100, L501.7400, L500.4050, L501.5500, L3100.7870 ####[facility] [address] [place], [address] PLT EST ADEQUATE Normal ADEQ [facility] Comment on above: Performed By: #### L 101.9900, L501.9520, L501.7300, L100.0100, L501.7400, L500.4050, L501.5500, L3100.7870 ####[facility] [address] [place], [address] SMEAR COMMENT SCANNED Normal [facility] Comment on above: Performed By: #### L 101.9900, L501.9520, L501.7300, L100.0100, L501.7400, L500.4050, L501.5500, L3100.7870 ####[facility] [address] [place], [address] Carbon dioxide, total [Moles /volume] in Central venous bloodOrdered By: Vincent Flores on 02-13-2025 CO2 [Moles/Vol] 24.2 mmol/L 21.0-32.0 [facility] Chloride assayOrdered By: Ishmael Flores on 02-13-2025 Chloride [Moles/Vol] 91 mmol/L Low 98-108 [facility] Comprehensive Metabolic Prof ilon 02-13-2025 Albumin [Mass/Vol] 4.1 g/dL Normal 3.4-4.8 [facility] Comment on above: Performed By: #### L 101.9900, L501.9520, L501.7300, L100.0100, L501.7400, L500.4050, L501.5500, L3100.7870 ####[facility] [address] [place], [address] Albumin/Globulin [Mass ratio] 1.2 {ratio} Normal 0.9-2.4 [facility] Comment on above: Performed By: #### L 101.9900, L501.9520, L501.7300, L100.0100, L501.7400, L500.4050, L501.5500, L3100.7870 ####[facility] [address] [place], [place], [id number] ALK PHOS 109 U/L High 35-104 [facility] Comment on above: Performed By: #### L 101.9900, L501.9520, L501.7300, L100.0100, L501.7400, L500.4050, L501.5500, L3100.7870 ####[facility] [address] [place], [address] ALT [Catalytic activity/Vol] 11 U/L Normal <=34 [facility] Comment on above: Performed By: #### L 101.9900, L501.9520, L501.7300, L100.0100, L501.7400, L500.4050, L501.5500, L3100.7870 ####[facility] [address] [place], [address] AST [Catalytic activity/Vol] 26 U/L Normal <=31 [facility] Comment on above: Performed By: #### L 101.9900, L501.9520, L501.7300, L100.0100, L501.7400, L500.4050, L501.5500, L3100.7870 ####[facility] [address] [place], [address] Bilirubin [Mass/Vol] 1.18 mg/dL Normal 0.00-1.30 [facility] Comment on above: Performed By: #### L 101.9900, L501.9520, L501.7300, L100.0100, L501.7400, L500.4050, L501.5500, L3100.7870 ####[facility] [address] [place], [address] BUN/CRE 27.4 RATIO High 10-20 [facility] Comment on above: Performed By: #### L 101.9900, L501.9520, L501.7300, L100.0100, L501.7400, L500.4050, L501.5500, L3100.7870 ####[facility] [address] [place], [address] Calcium [Mass/Vol] 9.7 mg/dL Normal 7.6-11.0 [facility] Comment on above: Performed By: #### L 101.9900, L501.9520, L501.7300, L100.0100, L501.7400, L500.4050, L501.5500, L3100.7870 ####[facility] [address] [place], [address] Chloride [Moles/Vol] 91 mmol/L Low 98-108 [facility] Comment on above: Performed By: #### L 101.9900, L501.9520, L501.7300, L100.0100, L501.7400, L500.4050, L501.5500, L3100.7870 ####[facility] [address] [place], [place], [id number] CO2 [Moles/Vol] 24.2 mmol/L Normal 21.0-32.0 [facility] Comment on above: Performed By: #### L 101.9900, L501.9520, L501.7300, L100.0100, L501.7400, L500.4050, L501.5500, L3100.7870 ####[facility] [address] [place], [place], [address] Creatinine [Mass/Vol] 2.25 mg/dL High 0.70-1.20 [facility] Comment on above: Performed By: #### L 101.9900, L501.9520, L501.7300, L100.0100, L501.7400, L500.4050, L501.5500, L3100.7870 ####[facility] [address] [place], [place], [id number] GAP 17 High 5-15 [facility] Comment on above: Performed By: #### L 101.9900, L501.9520, L501.7300, L100.0100, L501.7400, L500.4050, L501.5500, L3100.7870 ####[facility] [address] [place], [place], [address] GFR/1.73 sq M.predicted among non-blacks MDRD (S/P/Bld) [Vol rate/Area] 22 mL/min/{1.73_m2} Low >60 [facility] Comment on above: Result Comment: mL/m in/1.73m2 CKD-EPI Creatinine Equation (2020) Performed By: #### L 101.9900, L501.9520, L501.7300, L100.0100, L501.7400, L500.4050, L501.5500, L3100.7870 ####[facility] [address] [place], [address] Globulin (S) [Mass/Vol] 3.4 g/dL Normal 2.2-4.2 [facility] [place] [facility] Comment on above: Performed By: #### L 101.9900, L501.9520, L501.7300, L100.0100, L501.7400, L500.4050, L501.5500, L3100.7870 ####[facility] [address] [place], [address] Glucose [Mass/Vol] 90 mg/dL Normal 70-99 [facility] Comment on above: Performed By: #### L 101.9900, L501.9520, L501.7300, L100.0100, L501.7400, L500.4050, L501.5500, L3100.7870 ####[facility] [address] [place], [address] Potassium [Moles/Vol] 3.5 mmol/L Normal 3.3-5.1 [facility] Comment on above: Performed By: #### L 101.9900, L501.9520, L501.7300, L100.0100, L501.7400, L500.4050, L501.5500, L3100.7870 ####[facility] [address] [place], [address] Sodium [Moles/Vol] 132 mmol/L Low 133-145 [facility] Comment on above: Performed By: #### L 101.9900, L501.9520, L501.7300, L100.0100, L501.7400, L500.4050, L501.5500, L3100.7870 ####[facility] [address] [place], [address] T PROT 7.4 g/dL Normal 5.9-8.4 [facility] Comment on above: Performed By: #### L 101.9900, L501.9520, L501.7300, L100.0100, L501.7400, L500.4050, L501.5500, L3100.7870 ####[facility] [address] [place], [place], [address] Urea nitrogen [Mass/Vol] 62 mg/dL High 4-19 [facility] Comment on above: Performed By: #### L 101.9900, L501.9520, L501.7300, L100.0100, L501.7400, L500.4050, L501.5500, L3100.7870 ####[facility] [address] [place], [address] Eosinophil percentageOrdered By: Vincent Flores on 02-13-2025 Eosinophils/100 WBC (Bld) 1.4 % 0-5 [facility] Erythrocyte Sed Rateon 02-13 SED RATE 25 mm/hr Normal 0-30 [facility] Comment on above: Performed By: #### L 101.9900, L501.9520, L501.7300, L100.0100, L501.7400, L500.4050, L501.5500, L3100.7870 ####[facility] [address] [place], [address] Erythrocyte distribution wid th ratioOrdered By: Vincent Flores on 02-13-2025 Erythrocyte distribution width (RBC) [Ratio] 24.1 % High 11.6-14.6 [facility] Erythrocyte distribution wid th standard deviationOrdered By: Vincent Flores on 02-13-2025 Erythrocyte distribution width (RBC) [Ratio] 76.2 fl High 35.1-43.9 [facility] Erythrocyte sedimentation ra teOrdered By: Vincent Flores on 02-13-2025 ESR (Bld) [Velocity] 25 mm/h 0-30 [facility] Glomerular filtration rate ( GFR) estimation/1.73 sq m using serum, plasma, or whole bOrdered By: Vincent Flores on 02-13-2025 GFR/1.73 sq M.predicted among non-blacks MDRD (S/P/Bld) [Vol rate/Area] 22 mL/min/{1.73_m2} Low >60 [facility] Comment on above: mL/min/1.73m2 CKD-EP I Creatinine Equation (2020) Hematocrit Auto (Bld) [Volum e fraction]Ordered By: Vincent Flores 02-13-2025 Hematocrit (Bld) [Volume fraction] 31.1 % Low 37-47 [facility] Hemoglobin measurementOrdere d By: Vincent Flores 02-13-2025 Hemoglobin (Bld) [Mass/Vol] 9.8 g/dL Low 12.0-15.0 [facility] Hypochromatic red blood cell detectionOrdered By: Vincent Flores 02-13-2025 Hypochromia Ql (Bld) 2+ [facility] Immature granulocytes/100 WB C Auto (Bld)Ordered By: Vincent Flores 02-13-2025 Immature granulocytes/100 WBC (Bld) 0.300 % 0.0-0.9 [facility] Comment on above: IG% - Immature Granu locytes (promyelocytes, myelocytes and metamyelocytes) > 1% indicates that a LEFT SHIFT is Present. Laboratory - Chemistry and C hemistry - challengeOrdered By: Vincent Flores 02-13-2025 AST [Catalytic activity/Vol] 26 U/L <32 [facility] Laboratory - Hematology and Cell countsOrdered By: Vincent Flores 02-13-2025 Anisocytosis Ql (Bld) 2+ [facility] MCV (mean corpuscular volume ) determinationOrdered By: Vincent Flores 02-13-2025 MCV (RBC) [Entitic vol] 87.6 fL 81-99 [facility] Mean corpuscular hemoglobin (MCH) determinationOrdered By: Vincent Flores 02-13-2025 MCH (RBC) [Entitic mass] 27.6 pg 27.0-32.0 [facility] Mean corpuscular hemoglobin concentration (MCHC) determinationOrdered By: Vincent Flores 02-13-2025 MCHC (RBC) [Mass/Vol] 31.5 g/dL Low 32-36 [facility] Mean platelet volume determi nationOrdered By: Vincent Flores on 02-13-2025 Platelet mean volume (Bld) [Entitic vol] 10.1 fL 6.2-12.0 [facility] Monocyte percentageOrdered B y: Vincent Flores on 02-13-2025 Monocytes/100 WBC (Bld) 11.1 % High 0-10 [facility] Neutrophil percentageOrdered By: Vincent Flores on 02-13-2025 Neutrophils/100 WBC (Bld) 65.9 % 47-70 [facility] No Panel InformationOrdered By: Vincent Mark on 02-13-2025 2+ [facility] 26 U/L <32 [facility] Nucleated red blood cell per centageOrdered By: Vincent Mark on 02-13-2025 Nucleated RBC/100 WBC (Bld) [Ratio] 0 % 0-5 [facility] Osmolality urOrdered By: Vincent Flores on 02-13-2025 Osmolality (U) [Osmolality] 315 mOsm/KG >50 [facility] Comment on above: Normal Urine Referen ce Ranges Random: 50 - 1200 mOsm/kg H20 depending on fluid intake Random: >850 mOsm/kg after 12 hour fluid restriction 24 hour: ~300 - 900 mOsm/kg H2O Osmolality, Serumon 02-14-20 25 OSMOLALITY,SER 295 mOsm/KG Normal 280-301 [facility] Comment on above: Performed By: #### L 101.9900, L501.9520, L501.7300, L100.0100, L501.7400, L500.4050, L501.5500, L3100.7870 ####[facility] [address] [facility] [place], [place], [address] Osmolality, Urineon 02-14-20 25 OSMOLALITY,UR 315 mOsm/KG Normal [facility] Comment on above: Result Comment: Norm al Urine Reference Ranges Random: 50 - 1200 mOsm/kg H20 depending on fluid intake Random: >850 mOsm/kg after 12 hour fluid restriction 24 hour: 300 - 900 mOsm/kg H2O Performed By: #### L 101.9900, L501.9520, L501.7300, L100.0100, L501.7400, L500.4050, L501.5500, L3100.7870 ####[facility] [address] [place], [address] Platelet countOrdered By: Ishmael Florse on 02-13-2025 Platelets (Bld) [#/Vol] 163 10*3/uL 150-450 [facility] Platelet estimateOrdered By: Vincent Flores on 02-13-2025 Platelets LM Ql (Bld) ADEQUATE ADEQ [facility] Potassium measurement (mass/ volume)Ordered By: Vincent Flores on 02-13-2025 Potassium (Unsp spec) [Mass/Vol] 3.5 mmol/L 3.3-5.1 [facility] RBC Auto (Bld) [#/Vol]Ordere d By: Vincent Flores on 02-13-2025 RBC (Bld) [#/Vol] 3.55 10*6/uL Low 4.2-5.4 [facility] Serum creatinine measurement (mass/volume)Ordered By: Vincent Flores on 02-13-2025 Creatinine [Mass/Vol] 2.25 mg/dL High 0.70-1.20 [facility] Serum globulin measurementOr dered By: Vincent Flores 02-13-2025 Globulin (S) [Mass/Vol] 3.4 g/dL 2.2-4.2 [facility] Serum glucose measurement (m ass/volume)Ordered By: Vincent Flores 02-13-2025 Glucose [Mass/Vol] 90 mg/dL 70-99 [facility] Serum or plasma alanine craven otransferase (ALT) measurementOrdered By: Vincent Flores 02-13-2025 ALT [Catalytic activity/Vol] 11 U/L <35 [facility] Serum or plasma albumin bijan urement (mass/volume)Ordered By: Vincent Flores on 02-13-2025 Albumin [Mass/Vol] 4.1 g/dL 3.4-4.8 [facility] Serum or plasma albumin/glob ulin mass ratioOrdered By: Vincent Flores 02-13-2025 Albumin/Globulin [Mass ratio] 1.2 {ratio} 0.9-2.4 [facility] Serum or plasma alkaline da sphatase measurementOrdered By: Vincent Mark on 02-13-2025 ALP [Catalytic activity/Vol] 109 U/L High 35-104 [facility] Serum or plasma calcium bijan urement (mass/volume)Ordered By: Vincent Flores on 02-13-2025 Calcium [Mass/Vol] 9.7 mg/dL 7.6-11.0 [facility] Serum or plasma urea nitroge n measurement (mass/volume)Ordered By: Vincent Flores on 02-13-2025 Urea nitrogen [Mass/Vol] 62 mg/dL High 4-19 [facility] Sodium levelOrdered By: Vincent Mark on 02-13-2025 Sodium [Moles/Vol] 132 mmol/L Low 133-145 [facility] TSH DL <= 0.005 mIU/L QnOrde red By: Vincent Flores on 02-13-2025 TSH Qn 3.180 uIU/mL 0.300-4.200 [facility] Thyroid Stim Hormone (TSH)on 02-13-2025 TSH 3.180 uIU/mL Normal 0.300-4.200 [facility] Comment on above: Performed By: #### L 101.9900, L501.9520, L501.7300, L100.0100, L501.7400, L500.4050, L501.5500, L3100.7870 ####[facility] [address] [place], [address] Total proteinOrdered By: Vincent Floers on 02-13-2025 Protein [Mass/Vol] 7.4 g/dL 5.9-8.4 [facility] Urine Sodiumon 02-13-2025 Sodium (U) [Moles/Vol] 57 mmol/L Normal Not Establ. [facility] Comment on above: Performed By: #### L 101.9900, L501.9520, L501.7300, L100.0100, L501.7400, L500.4050, L501.5500, L3100.7870 ####[facility] [address] [place], [address] Urine sodium measurement (mo les/volume)Ordered By: Vincent Flores on 02-13-2025 Sodium (U) [Moles/Vol] 57 mmol/L Not Establ. [facility] White blood cell (WBC) count Ordered By: Vincent Flores on 02-13-2025 WBC (Bld) [#/Vol] 7.7 10*3/uL 4.4-11.0 [facility] Pacemaker Checkon 02-08-2025 Pacemaker Check Normal [facility] Anion gap in Serum or Plasma Ordered By: Juan Diego Huynh on 02-05-2025 Anion gap [Moles/Vol] 17 mmol/L High 5-15 [facility] BUN/creatinine ratioOrdered By: Juan Diego Huynh on 02-05-2025 Urea nitrogen/Creatinine [Mass ratio] 33.5 mg/mg High 10-20 [facility] Basic Metabolic Profile (BMP )on 02-05-2025 BUN/CRE 33.5 RATIO High 10-20 [facility] Comment on above: Performed By: #### L 503.7505, L500.2500 ####[facility] [address] [place], [address] Calcium [Mass/Vol] 9.5 mg/dL Normal 7.6-11.0 [facility] Comment on above: Performed By: #### L 503.7505, L500.2500 ####[facility] [address] [place], [address] Chloride [Moles/Vol] 90 mmol/L Low 98-108 [facility] Comment on above: Performed By: #### L 503.7505, L500.2500 ####[facility] [address] [place], [address] CO2 [Moles/Vol] 22.7 mmol/L Normal 21.0-32.0 [facility] Comment on above: Performed By: #### L 503.7505, L500.2500 ####[facility] [address] [place], [address] Creatinine [Mass/Vol] 2.11 mg/dL High 0.70-1.20 [facility] Comment on above: Performed By: #### L 503.7505, L500.2500 ####[facility] [address] [place], [address] GAP 17 High 5-15 [facility] Comment on above: Performed By: #### L 503.7505, L500.2500 ####[facility] [address] [place], [address] GFR/1.73 sq M.predicted among non-blacks MDRD (S/P/Bld) [Vol rate/Area] 23 mL/min/{1.73_m2} Low >60 [facility] Comment on above: Result Comment: mL/m in/1.73m2 CKD-EPI Creatinine Equation (2020) Performed By: #### L 503.7505, L500.2500 ####[facility] [address] [place], [address] Glucose [Mass/Vol] 159 mg/dL High 70-99 [facility] Comment on above: Performed By: #### L 503.7505, L500.2500 ####[facility] [address] [place], [address] Potassium [Moles/Vol] 4.2 mmol/L Normal 3.3-5.1 [facility] Comment on above: Performed By: #### L 503.7505, L500.2500 ####[facility] [address] [place], [address] Sodium [Moles/Vol] 130 mmol/L Low 133-145 [facility] Comment on above: Performed By: #### L 503.7505, L500.2500 ####[facility] [address] [place], [address] Urea nitrogen [Mass/Vol] 71 mg/dL High 4-19 [facility] Comment on above: Performed By: #### L 503.7505, L500.2500 ####[facility] [address] [place], [address] Carbon dioxide, total [Moles /volume] in Central venous bloodOrdered By: Juan Diego Huynh on 02-05-2025 CO2 [Moles/Vol] 22.7 mmol/L 21.0-32.0 [facility] Cardiology Visit Reporton Cardiology Visit Report Normal [facility] Chloride assayOrdered By: Jennifer Huynh on 02-05-2025 Chloride [Moles/Vol] 90 mmol/L Low 98-108 [facility] Glomerular filtration rate ( GFR) estimation/1.73 sq m using serum, plasma, or whole bOrdered By: Juan Diego Huynh on 02-05-2025 GFR/1.73 sq M.predicted among non-blacks MDRD (S/P/Bld) [Vol rate/Area] 23 mL/min/{1.73_m2} Low >60 [facility] Comment on above: mL/min/1.73m2 CKD-EP I Creatinine Equation (2020) Natriuretic peptide.B prohor daria N-Terminal [Mass/volume] in Serum or PlasmaOrdered By: Juan Diego Huynh on 02-05-2025 Natriuretic peptide.B prohormone N-Terminal [Mass/Vol] 9503 pg/mL High <1800 [facility] Comment on above: Heart Failure Unlike ly: < 300 pg/mLHeart Failure Likely< 50 Years: > 450 pg/mL50-75 Years: > 900 pg/mL>75 Years: > 1800 pg/mL Potassium measurement (mass/ volume)Ordered By: Juan Diego Huynh on 02-05-2025 Potassium (Unsp spec) [Mass/Vol] 4.2 mmol/L 3.3-5.1 [facility] Pro- Brain NATRIURETIC PEPTI Drew 02-05-2025 Natriuretic peptide B (Bld) [Mass/Vol] 9503 pg/mL High <=1800 [facility] Comment on above: Result Comment: Hear t Failure Unlikely: < 300 pg/mLHeart Failure Likely< 50 Years: > 450 pg/mL50-75 Years: > 900 pg/mL>75 Years: > 1800 pg/mL Performed By: #### L 503.7505, L500.2500 ####[facility] [address] [place], [address] Serum creatinine measurement (mass/volume)Ordered By: Juan Diego Huynh on 02-05-2025 Creatinine [Mass/Vol] 2.11 mg/dL High 0.70-1.20 [facility] Serum glucose measurement (m ass/volume)Ordered By: Juan Diego Huynh on 02-05-2025 Glucose [Mass/Vol] 159 mg/dL High 70-99 [facility] Serum or plasma calcium bijan urement (mass/volume)Ordered By: Juan Diego Huynh on 02-05-2025 Calcium [Mass/Vol] 9.5 mg/dL 7.6-11.0 [facility] Serum or plasma urea nitroge n measurement (mass/volume)Ordered By: Juan Diego Huynh on 02-05-2025 Urea nitrogen [Mass/Vol] 71 mg/dL High 4-19 [facility] Sodium levelOrdered By: Phi Huynh on 02-05-2025 Sodium [Moles/Vol] 130 mmol/L Low 133-145 [facility] Absolute lymphocyte countOrd ered By: Vincent Flores on 02-01-2025 Lymphocytes Auto (Unsp spec) [#/Vol] 1.38 10*3/uL 0.83-4.51 [facility] Absolute neutrophil countOrd ered By: Vincent Flores on 02-01-2025 Neutrophils (Bld) [#/Vol] 5.0 10*3/uL 2.0-7.7 [facility] Anion gap in Serum or Plasma Ordered By: Vincent Flores on 02-01-2025 Anion gap [Moles/Vol] 16 mmol/L High 5-15 [facility] Automated lymphocyte count a s percentage of total leukocytesOrdered By: Vincent Flores on 02-01-2025 Lymphocytes/100 WBC Auto (Unsp spec) 18.6 % Low 19-41 [facility] BUN/creatinine ratioOrdered By: Vincent Flores on 02-01-2025 Urea nitrogen/Creatinine [Mass ratio] 30.6 mg/mg High 10-20 [facility] Basophil percentageOrdered B y: Vincent Flores on 02-01-2025 Basophils/100 WBC (Bld) 0.7 % 0-1 [facility] Bilirubin, totalOrdered By: Vincent Flores on 02-01-2025 Bilirubin [Mass/Vol] 0.99 mg/dL 0.00-1.30 [facility] CBC W/Diff, Automatedon 01-04 Absolute Lymph 1.38 X10 3/uL Normal 0.83-4.51 [facility] Comment on above: Performed By: #### L 500.4050, L506.1001, L501.9520, L100.0100 ####[facility] [address] [place], [address] Absolute Neut 5.0 X10 3/uL Normal 2.0-7.7 [facility] Comment on above: Performed By: #### L 500.4050, L506.1001, L501.9520, L100.0100 ####[facility] [address] [place], [address] Basophils/100 WBC (Bld) 0.7 % Normal 0-1 [facility] Comment on above: Performed By: #### L 500.4050, L506.1001, L501.9520, L100.0100 ####[facility] [address] [place], [address] Eosinophils/100 WBC (Bld) 1.6 % Normal 0-5 [facility] Comment on above: Performed By: #### L 500.4050, L506.1001, L501.9520, L100.0100 ####[facility] [address] [place], [address] Erythrocyte distribution width (RBC) [Ratio] 19.9 % High 11.6-14.6 [facility] Comment on above: Performed By: #### L 500.4050, L506.1001, L501.9520, L100.0100 ####[facility] [address] [place], [address] Hematocrit (Bld) [Volume fraction] 29.6 % Low 37-47 [facility] Comment on above: Performed By: #### L 500.4050, L506.1001, L501.9520, L100.0100 ####[facility] [address] [place], [address] Hemoglobin (Bld) [Mass/Vol] 9.5 g/dL Low 12.0-15.0 [facility] Comment on above: Performed By: #### L 500.4050, L506.1001, L501.9520, L100.0100 ####[facility] [address] [place], [address] IG% 0.700 Normal 0.0-0.9 [facility] Comment on above: Result Comment: IG% - Immature Granulocytes (promyelocytes, myelocytes andmetamyelocytes) > 1% indicates that a LEFT SHIFT is Present. Performed By: #### L 500.4050, L506.1001, L501.9520, L100.0100 ####[facility] [address] [place], [address] Lymphocytes/100 WBC (Bld) 18.6 % Low 19-41 [facility] Comment on above: Performed By: #### L 500.4050, L506.1001, L501.9520, L100.0100 ####[facility] [address] [place], [address] MCH (RBC) [Entitic mass] 27.1 pg Normal 27.0-32.0 [facility] Comment on above: Performed By: #### L 500.4050, L506.1001, L501.9520, L100.0100 ####[facility] [address] [place], [address] MCHC (RBC) [Mass/Vol] 32.1 g/dL Normal 32-36 [facility] Comment on above: Performed By: #### L 500.4050, L506.1001, L501.9520, L100.0100 ####[facility] [address] [place], [address] MCV (RBC) [Entitic vol] 84.6 fL Normal 81-99 [facility] Comment on above: Performed By: #### L 500.4050, L506.1001, L501.9520, L100.0100 ####[facility] [address] [place], [address] Monocytes/100 WBC (Bld) 11.2 % High 0-10 [facility] [place] [facility] Comment on above: Performed By: #### L 500.4050, L506.1001, L501.9520, L100.0100 ####[facility] [address] [place], [address] Neutrophils/100 WBC (Bld) 67.2 % Normal 47-70 [facility] Comment on above: Performed By: #### L 500.4050, L506.1001, L501.9520, L100.0100 ####[facility] [address] [place], [address] Nucleated RBC (Bld) [#/Vol] 0 10*3/uL Normal 0-5 [facility] Comment on above: Performed By: #### L 500.4050, L506.1001, L501.9520, L100.0100 ####[facility] [address] [place], [address] Platelet mean volume (Bld) [Entitic vol] 9.6 fL Normal 6.2-12.0 [facility] Comment on above: Performed By: #### L 500.4050, L506.1001, L501.9520, L100.0100 ####[facility] [address] [place], [address] Platelets (Bld) [#/Vol] 209 10*3/uL Normal 150-450 [facility] Comment on above: Performed By: #### L 500.4050, L506.1001, L501.9520, L100.0100 ####[facility] [address] [place], [address] RBC (Bld) [#/Vol] 3.50 10*6/uL Low 4.2-5.4 [facility] Comment on above: Performed By: #### L 500.4050, L506.1001, L501.9520, L100.0100 ####[facility] [address] [place], [address] RDW SD 61.5 fl High 35.1-43.9 [facility] Comment on above: Performed By: #### L 500.4050, L506.1001, L501.9520, L100.0100 ####[facility] [address] [place], [address] WBC (Bld) [#/Vol] 7.4 10*3/uL Normal 4.4-11.0 [facility] Comment on above: Performed By: #### L 500.4050, L506.1001, L501.9520, L100.0100 ####[facility] [address] [place], [address] Carbon dioxide, total [Moles /volume] in Central venous bloodOrdered By: Vincent Flores on 02-01-2025 CO2 [Moles/Vol] 25.1 mmol/L 21.0-32.0 [facility] Chloride assayOrdered By: Ishmael Flores on 02-01-2025 Chloride [Moles/Vol] 88 mmol/L Low 98-108 [facility] Comprehensive Metabolic Prof ilon 02-01-2025 Albumin [Mass/Vol] 4.2 g/dL Normal 3.4-4.8 [facility] Comment on above: Performed By: #### L 500.4050, L506.1001, L501.9520, L100.0100 ####[facility] [address] [place], [address] Albumin/Globulin [Mass ratio] 1.3 {ratio} Normal 0.9-2.4 [facility] Comment on above: Performed By: #### L 500.4050, L506.1001, L501.9520, L100.0100 ####[facility] [address] [place], [address] ALK PHOS 120 U/L High 35-104 [facility] Comment on above: Performed By: #### L 500.4050, L506.1001, L501.9520, L100.0100 ####[facility] [address] [place], [address] ALT [Catalytic activity/Vol] 11 U/L Normal <=34 [facility] Comment on above: Performed By: #### L 500.4050, L506.1001, L501.9520, L100.0100 ####[facility] [address] [place], [address] AST [Catalytic activity/Vol] 26 U/L Normal <=31 [facility] Comment on above: Performed By: #### L 500.4050, L506.1001, L501.9520, L100.0100 ####[facility] [address] [place], [address] Bilirubin [Mass/Vol] 0.99 mg/dL Normal 0.00-1.30 [facility] Comment on above: Performed By: #### L 500.4050, L506.1001, L501.9520, L100.0100 ####[facility] [address] [place], [address] BUN/CRE 30.6 RATIO High 10-20 [facility] Comment on above: Performed By: #### L 500.4050, L506.1001, L501.9520, L100.0100 ####[facility] [address] [place], [address] Calcium [Mass/Vol] 9.3 mg/dL Normal 7.6-11.0 [facility] Comment on above: Performed By: #### L 500.4050, L506.1001, L501.9520, L100.0100 ####[facility] [address] [place], [address] Chloride [Moles/Vol] 88 mmol/L Low 98-108 [facility] Comment on above: Performed By: #### L 500.4050, L506.1001, L501.9520, L100.0100 ####[facility] [address] [place], [address] CO2 [Moles/Vol] 25.1 mmol/L Normal 21.0-32.0 [facility] Comment on above: Performed By: #### L 500.4050, L506.1001, L501.9520, L100.0100 ####[facility] [address] [place], [address] Creatinine [Mass/Vol] 2.46 mg/dL High 0.70-1.20 [facility] Comment on above: Performed By: #### L 500.4050, L506.1001, L501.9520, L100.0100 ####[facility] [address] [place], [address] GAP 16 High 5-15 [facility] Comment on above: Performed By: #### L 500.4050, L506.1001, L501.9520, L100.0100 ####[facility] [address] [place], [address] GFR/1.73 sq M.predicted among non-blacks MDRD (S/P/Bld) [Vol rate/Area] 19 mL/min/{1.73_m2} Low >60 [facility] Comment on above: Result Comment: mL/m in/1.73m2 CKD-EPI Creatinine Equation (2020) Performed By: #### L 500.4050, L506.1001, L501.9520, L100.0100 ####[facility] [address] [place], [address] Globulin (S) [Mass/Vol] 3.2 g/dL Normal 2.2-4.2 [facility] [place] [facility] Comment on above: Performed By: #### L 500.4050, L506.1001, L501.9520, L100.0100 ####[facility] [address] [place], [address] Glucose [Mass/Vol] 138 mg/dL High 70-99 [facility] Comment on above: Performed By: #### L 500.4050, L506.1001, L501.9520, L100.0100 ####[facility] [address] [place], [address] Potassium [Moles/Vol] 3.4 mmol/L Normal 3.3-5.1 [facility] Comment on above: Performed By: #### L 500.4050, L506.1001, L501.9520, L100.0100 ####[facility] [address] [place], [address] Sodium [Moles/Vol] 129 mmol/L Low 133-145 [facility] Comment on above: Performed By: #### L 500.4050, L506.1001, L501.9520, L100.0100 ####[facility] [address] [place], [address] T PROT 7.4 g/dL Normal 5.9-8.4 [facility] Comment on above: Performed By: #### L 500.4050, L506.1001, L501.9520, L100.0100 ####[facility] [address] [place], [address] Urea nitrogen [Mass/Vol] 75 mg/dL High 4-19 [facility] Comment on above: Performed By: #### L 500.4050, L506.1001, L501.9520, L100.0100 ####[facility] [address] [place], [address] Eosinophil percentageOrdered By: Vincent Flores on 02-01-2025 Eosinophils/100 WBC (Bld) 1.6 % 0-5 [facility] Erythrocyte distribution wid th ratioOrdered By: Vincent Flores on 02-01-2025 Erythrocyte distribution width (RBC) [Ratio] 19.9 % High 11.6-14.6 [facility] Erythrocyte distribution wid th standard deviationOrdered By: Vincent Flores on 02-01-2025 Erythrocyte distribution width (RBC) [Ratio] 61.5 fl High 35.1-43.9 [facility] Glomerular filtration rate ( GFR) estimation/1.73 sq m using serum, plasma, or whole bOrdered By: Vincent Flores on 02-01-2025 GFR/1.73 sq M.predicted among non-blacks MDRD (S/P/Bld) [Vol rate/Area] 19 mL/min/{1.73_m2} Low >60 [facility] Comment on above: mL/min/1.73m2 CKD-EP I Creatinine Equation (2020) Hematocrit Auto (Bld) [Volum e fraction]Ordered By: Vincent Flores on 02-01-2025 Hematocrit (Bld) [Volume fraction] 29.6 % Low 37-47 [facility] Hemoglobin measurementOrdere d By: Vincent Flores 02-01-2025 Hemoglobin (Bld) [Mass/Vol] 9.5 g/dL Low 12.0-15.0 [facility] Immature granulocytes/100 WB C Auto (Bld)Ordered By: Vincent Flores on 02-01-2025 Immature granulocytes/100 WBC (Bld) 0.700 % 0.0-0.9 [facility] Comment on above: IG% - Immature Granu locytes (promyelocytes, myelocytes and metamyelocytes) > 1% indicates that a LEFT SHIFT is Present. Laboratory - Chemistry and C hemistry - challengeOrdered By: Vincent Flores on 02-01-2025 AST [Catalytic activity/Vol] 26 U/L <32 [facility] MCV (mean corpuscular volume ) determinationOrdered By: Vincent Flores on 02-01-2025 MCV (RBC) [Entitic vol] 84.6 fL 81-99 [facility] Mean corpuscular hemoglobin (MCH) determinationOrdered By: Vincent Flores on 02-01-2025 MCH (RBC) [Entitic mass] 27.1 pg 27.0-32.0 [facility] Mean corpuscular hemoglobin concentration (MCHC) determinationOrdered By: Vincent Flores 02-01-2025 MCHC (RBC) [Mass/Vol] 32.1 g/dL 32-36 [facility] Mean platelet volume determi nationOrdered By: Vincent Flores on 02-01-2025 Platelet mean volume (Bld) [Entitic vol] 9.6 fL 6.2-12.0 [facility] Monocyte percentageOrdered B y: Vincent Flores on 02-01-2025 Monocytes/100 WBC (Bld) 11.2 % High 0-10 [facility] Neutrophil percentageOrdered By: Vincent Flores on 02-01-2025 Neutrophils/100 WBC (Bld) 67.2 % 47-70 [facility] No Panel InformationOrdered By: Vincent Flores on 02-01-2025 26 U/L <32 [facility] Nucleated red blood cell per centageOrdered By: Vincent Flores on 02-01-2025 Nucleated RBC/100 WBC (Bld) [Ratio] 0 % 0-5 [facility] Platelet countOrdered By: Ishmael Flores on 02-01-2025 Platelets (Bld) [#/Vol] 209 10*3/uL 150-450 [facility] Potassium measurement (mass/ volume)Ordered By: Vincent Flores on 02-01-2025 Potassium (Unsp spec) [Mass/Vol] 3.4 mmol/L 3.3-5.1 [facility] RBC Auto (Bld) [#/Vol]Ordere d By: Vincent Flores on 02-01-2025 RBC (Bld) [#/Vol] 3.50 10*6/uL Low 4.2-5.4 [facility] Serum creatinine measurement (mass/volume)Ordered By: Vincent Flores on 02-01-2025 Creatinine [Mass/Vol] 2.46 mg/dL High 0.70-1.20 [facility] Serum globulin measurementOr dered By: Vincent Flores 02-01-2025 Globulin (S) [Mass/Vol] 3.2 g/dL 2.2-4.2 [facility] Serum glucose measurement (m ass/volume)Ordered By: Vincent Flores 02-01-2025 Glucose [Mass/Vol] 138 mg/dL High 70-99 [facility] Serum or plasma alanine craven otransferase (ALT) measurementOrdered By: Vincent Flores 02-01-2025 ALT [Catalytic activity/Vol] 11 U/L <35 [facility] Serum or plasma albumin bijan urement (mass/volume)Ordered By: Vincent Flores 02-01-2025 Albumin [Mass/Vol] 4.2 g/dL 3.4-4.8 [facility] Serum or plasma albumin/glob ulin mass ratioOrdered By: Vincent Flores 02-01-2025 Albumin/Globulin [Mass ratio] 1.3 {ratio} 0.9-2.4 [facility] Serum or plasma alkaline da sphatase measurementOrdered By: Vincent Flores 02-01-2025 ALP [Catalytic activity/Vol] 120 U/L High 35-104 [facility] Serum or plasma calcium bijan urement (mass/volume)Ordered By: Vincent Flores 02-01-2025 Calcium [Mass/Vol] 9.3 mg/dL 7.6-11.0 [facility] Serum or plasma urea nitroge n measurement (mass/volume)Ordered By: Vincent Flores 02-01-2025 Urea nitrogen [Mass/Vol] 75 mg/dL High 4-19 [facility] Sodium levelOrdered By: Vincent Flores on 02-01-2025 Sodium [Moles/Vol] 129 mmol/L Low 133-145 [facility] TSH DL <= 0.005 mIU/L QnOrde red By: Vincent Flores on 02-01-2025 TSH Qn 4.710 uIU/mL High 0.300-4.200 [facility] Thyroid Stim Hormone (TSH)on 02-01-2025 TSH 4.710 uIU/mL High 0.300-4.200 [facility] Comment on above: Performed By: #### L 500.4050, L506.1001, L501.9520, L100.0100 ####[facility] [address] [place], [place], [address] Total proteinOrdered By: Vincent Flores on 02-01-2025 Protein [Mass/Vol] 7.4 g/dL 5.9-8.4 [facility] Vitamin D,25 Hydroxyon 02-01 Vitamin D 25-OH 36.3 ng/mL Normal 30-100 [facility] Comment on above: Result Comment: Haydee min D StatusDeficiency: <20 ng/mL (50nmol/L)Insufficiency: 20-30 ng/mL (50-75 nmol/L)Sufficiency: 30-100 ng/mL (75-250 nmol/L)Toxicity: >100 ng/mL (>250 nmol/L) Performed By: #### L 500.4050, L506.1001, L501.9520, L100.0100 ####[facility] [address] [place], [address] White blood cell (WBC) count Ordered By: Vincent Flores on 02-01-2025 WBC (Bld) [#/Vol] 7.4 10*3/uL 4.4-11.0 [facility] AST(SGOT)on 01-23-2025 AST [Catalytic activity/Vol] 24 U/L Normal <=31 [facility] Comment on above: Performed By: #### L 501.4100, L3890.6301, L501.4600, L100.0100, L501.9520, L001.0705, L501.2300, L501.4305, L501.4405, L500.4100, L506.1001 ####[facility] [address] [place], [place], [address] Absolute lymphocyte countOrd ered By: Vincent Flores on 01-23-2025 Lymphocytes Auto (Unsp spec) [#/Vol] 1.55 10*3/uL 0.83-4.51 [facility] Absolute neutrophil countOrd ered By: Vincent Flores on 01-23-2025 Neutrophils (Bld) [#/Vol] 6.1 10*3/uL 2.0-7.7 [facility] Alanine Aminotransferas (SGP T)on 01-23-2025 ALT [Catalytic activity/Vol] 11 U/L Normal <=34 [facility] Comment on above: Performed By: #### L 501.4100, L3890.6301, L501.4600, L100.0100, L501.9520, L001.0705, L501.2300, L501.4305, L501.4405, L500.4100, L506.1001 ####[facility] [address] [place], [place], [id number] Alkaline Phosphataseon 01-23 ALK PHOS 126 U/L High 35-104 [facility] Comment on above: Performed By: #### L 501.4100, L3890.6301, L501.4600, L100.0100, L501.9520, L001.0705, L501.2300, L501.4305, L501.4405, L500.4100, L506.1001 ####[facility] [address] [facility] [address] [place], [place], [id number] Anion gap in Serum or Plasma Ordered By: Jeremy Mcgarry on 01-23-2025 Anion gap [Moles/Vol] 17 mmol/L High 5-15 [facility] Automated lymphocyte count a s percentage of total leukocytesOrdered By: Vincent Flores on 01-23-2025 Lymphocytes/100 WBC Auto (Unsp spec) 16.8 % Low 19-41 [facility] BUN/creatinine ratioOrdered By: Jeremy Mcgarry on 01-23-2025 Urea nitrogen/Creatinine [Mass ratio] 29.1 mg/mg High 10-20 [facility] Basophil percentageOrdered B y: Vincent Flores on 01-23-2025 Basophils/100 WBC (Bld) 0.8 % 0-1 [facility] Bilirubin, totalOrdered By: Vincent Flores on 01-23-2025 Bilirubin [Mass/Vol] 1.15 mg/dL 0.00-1.30 [facility] Blood manual differential co mment interpretation (narrative result)Ordered By: Vincent Flores on 01-23-2025 Manual differential comment Cristhian (Bld) [Interp] SCANNED [facility] Blood polychromasia detectio n by light microscopyOrdered By: Vincent Flores on 01-23-2025 Polychromasia LM Ql (Bld) 1+ [facility] CBC W/Diff, Automatedon 01-03 HYPOCHROMASIA 3+ Normal [facility] Comment on above: Performed By: #### L 501.4100, L3890.6301, L501.4600, L100.0100, L501.9520, L001.0705, L501.2300, L501.4305, L501.4405, L500.4100, L506.1001 ####[facility] [address] [place], [place], [address] Anisocytosis Ql (Bld) 2+ Normal [facility] Comment on above: Performed By: #### L 501.4100, L3890.6301, L501.4600, L100.0100, L501.9520, L001.0705, L501.2300, L501.4305, L501.4405, L500.4100, L506.1001 ####[facility] [address] [place], [address] PLT EST ADEQUATE Normal ADEQ [facility] Comment on above: Performed By: #### L 501.4100, L3890.6301, L501.4600, L100.0100, L501.9520, L001.0705, L501.2300, L501.4305, L501.4405, L500.4100, L506.1001 ####[facility] [address] [place], [address] POLYCHROMASIA 1+ Normal [facility] Comment on above: Performed By: #### L 501.4100, L3890.6301, L501.4600, L100.0100, L501.9520, L001.0705, L501.2300, L501.4305, L501.4405, L500.4100, L506.1001 ####[facility] [address] [place], [address] SMEAR COMMENT SCANNED Normal [facility] Comment on above: Performed By: #### L 501.4100, L3890.6301, L501.4600, L100.0100, L501.9520, L001.0705, L501.2300, L501.4305, L501.4405, L500.4100, L506.1001 ####[facility] [address] [place], [address] CBC-Complete Blood Cnt No Di ffon 01-23-2025 SCAN INDICATED? YES- FLAGS NOTED Normal [facility] Comment on above: Result Comment: DR. FLORES ORDERED CBCD Performed By: #### L 501.0900, L501.5200, L500.3600, L100.0500 ####[facility] [address] [place], [place], [id number] Erythrocyte distribution width (RBC) [Ratio] 20.1 % High 11.6-14.6 [facility] Comment on above: Result Comment: DR. FLORES ORDERED CBCD Performed By: #### L 501.0900, L501.5200, L500.3600, L100.0500 ####[facility] [address] [place], [address] Hematocrit (Bld) [Volume fraction] 28.2 % Low 37-47 [facility] Comment on above: Result Comment: DR. FLORES ORDERED CBCD Performed By: #### L 501.0900, L501.5200, L500.3600, L100.0500 ####[facility] [address] [place], [address] Hemoglobin (Bld) [Mass/Vol] 9.0 g/dL Low 12.0-15.0 [facility] Comment on above: Result Comment: DR. FLORES ORDERED CBCD Performed By: #### L 501.0900, L501.5200, L500.3600, L100.0500 ####[facility] [address] [place], [address] MCH (RBC) [Entitic mass] 28.1 pg Normal 27.0-32.0 [facility] Comment on above: Result Comment: DR. FLROES ORDERED CBCD Performed By: #### L 501.0900, L501.5200, L500.3600, L100.0500 ####[facility] [address] [place], [address] MCHC (RBC) [Mass/Vol] 31.9 g/dL Low 32-36 [facility] Comment on above: Result Comment: DR. FLORES ORDERED CBCD Performed By: #### L 501.0900, L501.5200, L500.3600, L100.0500 ####[facility] [address] [place], [address] MCV (RBC) [Entitic vol] 88.1 fL Normal 81-99 [facility] Comment on above: Result Comment: DR. FLORES ORDERED CBCD Performed By: #### L 501.0900, L501.5200, L500.3600, L100.0500 ####[facility] [address] [place], [address] Platelet mean volume (Bld) [Entitic vol] 9.8 fL Normal 6.2-12.0 [facility] Comment on above: Result Comment: DR. FLORES ORDERED CBCD Performed By: #### L 501.0900, L501.5200, L500.3600, L100.0500 ####[facility] [address] [place], [address] Platelets (Bld) [#/Vol] 214 10*3/uL Normal 150-450 [facility] Comment on above: Result Comment: DR. FLORES ORDERED CBCD Performed By: #### L 501.0900, L501.5200, L500.3600, L100.0500 ####[facility] [address] [place], [address] POSITIVE MORPH YES Abnormal [facility] Comment on above: Result Comment: DR. FLORES ORDERED CBCD Performed By: #### L 501.0900, L501.5200, L500.3600, L100.0500 ####[facility] [address] [place], [address] RBC (Bld) [#/Vol] 3.20 10*6/uL Low 4.2-5.4 [facility] Comment on above: Result Comment: DR. FLORES ORDERED CBCD Performed By: #### L 501.0900, L501.5200, L500.3600, L100.0500 ####[facility] [address] [place], [address] RDW SD 64.7 fl High 35.1-43.9 [facility] Comment on above: Result Comment: DR. FLORES ORDERED CBCD Performed By: #### L 501.0900, L501.5200, L500.3600, L100.0500 ####[facility] [address] [place], [address] WBC (Bld) [#/Vol] 8.9 10*3/uL Normal 4.4-11.0 [facility] Comment on above: Result Comment: DR. FLORES ORDERED CBCD Performed By: #### L 501.0900, L501.5200, L500.3600, L100.0500 ####[facility] [address] [place], [address] Calculated very low density lipoprotein (VLDL) cholesterol measurementOrdered By: Vincent Flores on 01-23-2025 Calculated very low density lipoprotein (VLDL) cholesterol measurement 10 mg/dL 5-40 [facility] Carbon dioxide, total [Moles /volume] in Central venous bloodOrdered By: Jeremy Mcgarry on 01-23-2025 CO2 [Moles/Vol] 23.7 mmol/L 21.0-32.0 [facility] Chloride assayOrdered By: Darío Mcgarry on 01-23-2025 Chloride [Moles/Vol] 91 mmol/L Low 98-108 [facility] Eosinophil percentageOrdered By: Vincent Flores on 01-23-2025 Eosinophils/100 WBC (Bld) 1.0 % 0-5 [facility] Erythrocyte distribution wid th ratioOrdered By: Vincent Flores on 01-23-2025 Erythrocyte distribution width (RBC) [Ratio] 20.2 % High 11.6-14.6 [facility] Erythrocyte distribution wid th standard deviationOrdered By: Vincent Flores on 01-23-2025 Erythrocyte distribution width (RBC) [Ratio] 65.1 fl High 35.1-43.9 [facility] Glomerular filtration rate ( GFR) estimation/1.73 sq m using serum, plasma, or whole bOrdered By: Jeremy Mcgarry on 01-23-2025 GFR/1.73 sq M.predicted among non-blacks MDRD (S/P/Bld) [Vol rate/Area] 25 mL/min/{1.73_m2} Low >60 [facility] Comment on above: mL/min/1.73m2 CKD-EP I Creatinine Equation (2020) Hematocrit Auto (Bld) [Volum e fraction]Ordered By: Vincent Flores on 01-23-2025 Hematocrit (Bld) [Volume fraction] 28.4 % Low 37-47 [facility] Hemoglobin measurementOrdere d By: Vincent Flores on 01-23-2025 Hemoglobin (Bld) [Mass/Vol] 9.4 g/dL Low 12.0-15.0 [facility] Hepatitis C Antibodyon 01-23 Hepatitis C Ab Non-Reactive Normal Nonreactive [facility] Comment on above: Result Comment: Reac tive: Presumptive evidence of antibodies to HCV. [facility] for supplemental testing.Non-Reactive: Antibodies to HCV were not detected; does notexclude the possibility of exposure to HCVReactive Results are presumptive evidence of antibodies toHCV. Follow CDC recommendations for supplemental testing.Order confirmation testing: HCV Quant by PCR testing -HCVPCR #[id number] Non Reactive: < 0.8 Equivocal: >/= 0.8 to < 1.0 Reactive: >/= 1.0The CDC requires that a reactive/equivocal HCV antibodyresult be sent out for confirmation. HCV Quant by PCRtesting. Performed By: #### L 501.4100, L3890.6301, L501.4600, L100.0100, L501.9520, L001.0705, L501.2300, L501.4305, L501.4405, L500.4100, L506.1001 ####[facility] [address] [place], [place], [id number] Hypochromatic red blood cell detectionOrdered By: Vincent Flores on 01-23-2025 Hypochromia Ql (Bld) 3+ [facility] Immature granulocytes/100 WB C Auto (Bld)Ordered By: Vincent Flores on 01-23-2025 Immature granulocytes/100 WBC (Bld) 0.300 % 0.0-0.9 [facility] Comment on above: IG% - Immature Granu locytes (promyelocytes, myelocytes and metamyelocytes) > 1% indicates that a LEFT SHIFT is Present. LDL calc ser/plasOrdered By: Vincent Flores on 01-23-2025 Cholesterol in LDL [Mass/Vol] 25 mg/dL [facility] Comment on above: Krhwcqblxo=963-418 m g/dL & Higher Fohy=327 mg/dL or greater Laboratory - Chemistry and C hemistry - challengeOrdered By: Vincent Flores on 01-23-2025 AST [Catalytic activity/Vol] 24 U/L <32 [facility] Laboratory - Hematology and Cell countsOrdered By: Vincent Flores on 01-23-2025 Anisocytosis Ql (Bld) 2+ [facility] Lipid Profileon 01-23-2025 CHOL:HDL 2.00 Normal [facility] Comment on above: Performed By: #### L 501.4100, L3890.6301, L501.4600, L100.0100, L501.9520, L001.0705, L501.2300, L501.4305, L501.4405, L500.4100, L506.1001 ####[facility] [address] [place], [place], [phone] Cholesterol [Mass/Vol] 72 mg/dL Normal <=200 [facility] Comment on above: Result Comment: Chol esterol level, Desirable <200 mg/dLBorderline high cholesterol 200-239 mg/dLHigh cholesterol >=240 mg/dLRecommendations of the NCEP Adult Treatment Panel for thefollowing risk-cutoff thresholds for the [place] Americanpulation. Performed By: #### L 501.4100, L3890.6301, L501.4600, L100.0100, L501.9520, L001.0705, L501.2300, L501.4305, L501.4405, L500.4100, L506.1001 ####[facility] [address] [place], [address] Cholesterol in HDL [Mass/Vol] 36 mg/dL Low [facility] Comment on above: Result Comment: Ligia onal Cholesterol Education Program (NCEP) guidelines:<40 mg/dL: Low HDL-cholesterol (major risk factor for CHD)>= 60 mg/dL: High HDL-cholesterol (negative risk factor forCHD)HDL-cholesterol is affected by a number of factors, e.g.smoking, exercise, hormones, sex and age. Performed By: #### L 501.4100, L3890.6301, L501.4600, L100.0100, L501.9520, L001.0705, L501.2300, L501.4305, L501.4405, L500.4100, L506.1001 ####[facility] [address] [place], [address] Cholesterol in LDL [Mass/Vol] 25 mg/dL Normal [facility] Comment on above: Result Comment: Bord mbdiev=266-994 mg/dL Higher Dvvi=750 mg/dL or greater Performed By: #### L 501.4100, L3890.6301, L501.4600, L100.0100, L501.9520, L001.0705, L501.2300, L501.4305, L501.4405, L500.4100, L506.1001 ####[facility] [address] [place], [address] Cholesterol in VLDL [Mass/Vol] 10 mg/dL Normal 5-40 [facility] Comment on above: Performed By: #### L 501.4100, L3890.6301, L501.4600, L100.0100, L501.9520, L001.0705, L501.2300, L501.4305, L501.4405, L500.4100, L506.1001 ####[facility] [address] [place], [place], [phone] Triglyceride [Mass/Vol] 52 mg/dL Normal [facility] Comment on above: Result Comment: The drugs N-Acetylcysteine and Metamizole may falselydepress this assay.Normal range: <150 mg/dLBorderline High: 150-199 mg/dLHigh: 200-499 mg/dLVery High: >500 mg/dL Performed By: #### L 501.4100, L3890.6301, L501.4600, L100.0100, L501.9520, L001.0705, L501.2300, L501.4305, L501.4405, L500.4100, L506.1001 ####[facility] [address] [place], [place], [address] MCV (mean corpuscular volume ) determinationOrdered By: Vincent Flores on 01-23-2025 MCV (RBC) [Entitic vol] 87.7 fL 81-99 [facility] Magnesiumon 01-23-2025 Magnesium [Mass/Vol] 2.0 mg/dL Normal 1.5-2.2 [facility] Comment on above: Order Comment: DR. Bruce LACEY ORDERED CBCDPLEASE CC COPY OF RENAL AND MG TO DR. FLORES Performed By: #### L 501.0900, L501.5200, L500.3600, L100.0500 ####[facility] [address] [place], [place], [address] Magnesium measurement (mass/ volume)Ordered By: Jeremy Mcgarry on 01-23-2025 Magnesium (Unsp spec) [Mass/Vol] 2.0 mg/dL 1.5-2.2 [facility] Mean corpuscular hemoglobin (MCH) determinationOrdered By: Vincent Flores on 01-23-2025 MCH (RBC) [Entitic mass] 29.0 pg 27.0-32.0 [facility] Mean corpuscular hemoglobin concentration (MCHC) determinationOrdered By: Vincent Flores on 01-23-2025 MCHC (RBC) [Mass/Vol] 33.1 g/dL 32-36 [facility] Mean platelet volume determi nationOrdered By: Vincent Flores on 01-23-2025 Platelet mean volume (Bld) [Entitic vol] 9.9 fL 6.2-12.0 [facility] Monocyte percentageOrdered B y: Vincent Flores on 01-23-2025 Monocytes/100 WBC (Bld) 15.6 % High 0-10 [facility] Neutrophil percentageOrdered By: Vincent Flores on 01-23-2025 Neutrophils/100 WBC (Bld) 65.5 % 47-70 [facility] No Panel InformationOrdered By: Vincent Flores on 01-23-2025 2+ [facility] 24 U/L <32 [facility] Nucleated red blood cell per centageOrdered By: Vincent Flores on 01-23-2025 Nucleated RBC/100 WBC (Bld) [Ratio] 0 % 0-5 [facility] Phosphoruson 01-23-2025 Phosphate [Mass/Vol] 3.1 mg/dL Normal 2.7-4.5 [facility] Comment on above: Performed By: #### L 501.4100, L3890.6301, L501.4600, L100.0100, L501.9520, L001.0705, L501.2300, L501.4305, L501.4405, L500.4100, L506.1001 ####[facility] [address] [place], [address] Platelet countOrdered By: Ishmael Flores on 01-23-2025 Platelets (Bld) [#/Vol] 224 10*3/uL 150-450 [facility] Platelet estimateOrdered By: Vincent Flores on 01-23-2025 Platelets LM Ql (Bld) ADEQUATE ADEQ [facility] Potassium measurement (mass/ volume)Ordered By: Jeremy Mcgarry on 01-23-2025 Potassium (Unsp spec) [Mass/Vol] 3.8 mmol/L 3.3-5.1 [facility] Protein+Creatinine Ratio,Uri neon 01-23-2025 PROT:CRE RATIO 477 mg/g CRE High 0-200 [facility] Comment on above: Performed By: #### L 501.0900, L501.5200, L500.3600, L100.0500 ####[facility] [address] [place], [address] Protein (U) [Mass/Vol] 32.2 mg/dL High 0.0-12.0 [facility] Comment on above: Performed By: #### L 501.0900, L501.5200, L500.3600, L100.0500 ####[facility] [address] [place], [address] UR CREAT 67.50 mg/dL Normal 28.00-217.00 [facility] Comment on above: Performed By: #### L 501.0900, L501.5200, L500.3600, L100.0500 ####[facility] [address] [place], [address] Protein, Totalon 01-23-2025 T PROT 7.4 g/dL Normal 5.9-8.4 [facility] Comment on above: Performed By: #### L 501.4100, L3890.6301, L501.4600, L100.0100, L501.9520, L001.0705, L501.2300, L501.4305, L501.4405, L500.4100, L506.1001 ####[facility] [address] [place], [address] RBC Auto (Bld) [#/Vol]Ordere d By: Vincent Flores on 01-23-2025 RBC (Bld) [#/Vol] 3.24 10*6/uL Low 4.2-5.4 [facility] Random urine creatinine bijan urement (mass/volume)Ordered By: Jeremy Mcgarry on 01-23-2025 Creatinine Unsp time (U) [Mass/Vol] 67.50 mg/dL 28.00-217.00 [facility] Renal Profileon 01-23-2025 Albumin [Mass/Vol] 4.0 g/dL Normal 3.4-4.8 [facility] Comment on above: Order Comment: DR. Bruce LACEY ORDERED CBCDPLEASE CC COPY OF RENAL AND MG TO DR. FLORES Performed By: #### L 501.0900, L501.5200, L500.3600, L100.0500 ####[facility] [address] [place], [address] BUN/CRE 29.1 RATIO High 10-20 [facility] Comment on above: Order Comment: DR. Bruce LACEY ORDERED CBCDPLEASE CC COPY OF RENAL AND MG TO DR. FLORES Performed By: #### L 501.0900, L501.5200, L500.3600, L100.0500 ####[facility] [address] [place], [address] Calcium [Mass/Vol] 9.5 mg/dL Normal 7.6-11.0 [facility] Comment on above: Order Comment: DR. Bruce LACEY ORDERED CBCDPLEASE CC COPY OF RENAL AND MG TO DR. FLORES Performed By: #### L 501.0900, L501.5200, L500.3600, L100.0500 ####[facility] [address] [place], [address] Chloride [Moles/Vol] 91 mmol/L Low 98-108 [facility] Comment on above: Order Comment: DR. Bruce LACEY ORDERED CBCDPLEASE CC COPY OF RENAL AND MG TO DR. FLORES Performed By: #### L 501.0900, L501.5200, L500.3600, L100.0500 ####[facility] [address] [place], [address] CO2 [Moles/Vol] 23.7 mmol/L Normal 21.0-32.0 [facility] Comment on above: Order Comment: DR. Bruce LACEY ORDERED CBCDPLEASE CC COPY OF RENAL AND MG TO DR. FLORES Performed By: #### L 501.0900, L501.5200, L500.3600, L100.0500 ####[facility] [address] [place], [address] Creatinine [Mass/Vol] 1.97 mg/dL High 0.70-1.20 [facility] Comment on above: Order Comment: DR. rBuce LACEY ORDERED CBCDPLEASE CC COPY OF RENAL AND MG TO DR. FLORES Performed By: #### L 501.0900, L501.5200, L500.3600, L100.0500 ####[facility] [address] [place], [address] GAP 17 High 5-15 [facility] Comment on above: Order Comment: DR. Bruce LACEY ORDERED CBCDPLEASE CC COPY OF RENAL AND MG TO DR. FLORES Performed By: #### L 501.0900, L501.5200, L500.3600, L100.0500 ####[facility] [address] [place], [address] GFR/1.73 sq M.predicted among non-blacks MDRD (S/P/Bld) [Vol rate/Area] 25 mL/min/{1.73_m2} Low >60 [facility] Comment on above: Order Comment: DR. Bruce LACEY ORDERED CBCDPLEASE CC COPY OF RENAL AND MG TO DR. FLORES Result Comment: mL/m in/1.73m2 CKD-EPI Creatinine Equation (2020) Performed By: #### L 501.0900, L501.5200, L500.3600, L100.0500 ####[facility] [address] [place], [address] Glucose [Mass/Vol] 105 mg/dL High 70-99 [facility] Comment on above: Order Comment: DR. Bruce LACEY ORDERED CBCDPLEASE CC COPY OF RENAL AND MG TO DR. FLORES Performed By: #### L 501.0900, L501.5200, L500.3600, L100.0500 ####[facility] [address] [place], [address] Phosphate [Mass/Vol] 3.1 mg/dL Normal 2.7-4.5 [facility] Comment on above: Order Comment: DR. Bruce LACEY ORDERED CBCDPLEASE CC COPY OF RENAL AND MG TO DR. FLORES Performed By: #### L 501.0900, L501.5200, L500.3600, L100.0500 ####[facility] [address] [place], [address] Potassium [Moles/Vol] 3.8 mmol/L Normal 3.3-5.1 [facility] Comment on above: Order Comment: DR. Bruce LACEY ORDERED CBCDPLEASE CC COPY OF RENAL AND MG TO DR. FLORES Performed By: #### L 501.0900, L501.5200, L500.3600, L100.0500 ####[facility] [address] [place], [address] Sodium [Moles/Vol] 131 mmol/L Low 133-145 [facility] Comment on above: Order Comment: DR. Bruce LACEY ORDERED CBCDPLEASE CC COPY OF RENAL AND MG TO DR. FLORES Performed By: #### L 501.0900, L501.5200, L500.3600, L100.0500 ####[facility] [address] [place], [address] Urea nitrogen [Mass/Vol] 57 mg/dL High 4-19 [facility] Comment on above: Order Comment: DR. Bruce LACEY ORDERED CBCDPLEASE CC COPY OF RENAL AND MG TO DR. FLORES Performed By: #### L 501.0900, L501.5200, L500.3600, L100.0500 ####[facility] [address] [place], [address] Screening total cholesterol/ high density lipoprotein (HDL) cholesterol ratioOrdered By: Vincent Flores on 01-23-2025 Cholesterol.total/Gin sterol in HDL [Mass ratio] 2.00 {ratio} [facility] Serum creatinine measurement (mass/volume)Ordered By: Jeremy Mcgarry on 01-23-2025 Creatinine [Mass/Vol] 1.97 mg/dL High 0.70-1.20 [facility] Serum glucose measurement (m ass/volume)Ordered By: Jeremy Mcgarry on 01-23-2025 Glucose [Mass/Vol] 105 mg/dL High 70-99 [facility] Serum or plasma alanine craven otransferase (ALT) measurementOrdered By: Vincent Flores on 01-23-2025 ALT [Catalytic activity/Vol] 11 U/L <35 [facility] Serum or plasma albumin bijan urement (mass/volume)Ordered By: Jeremy Mcgarry on 01-23-2025 Albumin [Mass/Vol] 4.0 g/dL 3.4-4.8 [facility] Serum or plasma alkaline da sphatase measurementOrdered By: Vincent Flores on 01-23-2025 ALP [Catalytic activity/Vol] 126 U/L High 35-104 [facility] Serum or plasma calcium bijan urement (mass/volume)Ordered By: Jeremy Mcgarry on 01-23-2025 Calcium [Mass/Vol] 9.5 mg/dL 7.6-11.0 [facility] Serum or plasma cholesterol in HDL measurement (mass/volume)Ordered By: Vincent Flores on 01-23-2025 Cholesterol in HDL [Mass/Vol] 36 mg/dL Low >40 [facility] Comment on above: National Cholesterol Education Program (NCEP) guidelines:<40 mg/dL: Low HDL-cholesterol (major risk factor for CHD)>= 60 mg/dL: High HDL-cholesterol (negative risk factor for CHD)HDL-cholesterol is affected by a number of factors, e.g. smoking, exercise, hormones, sex and age. Serum or plasma cholesterol measurement (mass/volume)Ordered By: Vincent Flores on 01-23-2025 Cholesterol [Mass/Vol] 72 mg/dL <201 [facility] Comment on above: Cholesterol level, D esirable <200 mg/dLBorderline high cholesterol 200-239 mg/dLHigh cholesterol >=240 mg/dLRecommendations of the NCEP Adult Treatment Panel for the following risk-cutoff thresholds for the [place] population. Serum or plasma urea nitroge n measurement (mass/volume)Ordered By: Jeremy Mcgarry on 01-23-2025 Urea nitrogen [Mass/Vol] 57 mg/dL High 4-19 [facility] Sodium levelOrdered By: Alvaro Mcgarry on 01-23-2025 Sodium [Moles/Vol] 131 mmol/L Low 133-145 [facility] TSH DL <= 0.005 mIU/L QnOrde red By: Vincent Flores on 01-23-2025 TSH Qn 6.900 uIU/mL High 0.300-4.200 [facility] Thyroid Stim Hormone (TSH)on 01-23-2025 TSH 6.900 uIU/mL High 0.300-4.200 [facility] Comment on above: Performed By: #### L 501.4100, L3890.6301, L501.4600, L100.0100, L501.9520, L001.0705, L501.2300, L501.4305, L501.4405, L500.4100, L506.1001 ####[facility] [address] [place], [place], [id number] Total Bilirubinon 01-23-2025 Bilirubin [Mass/Vol] 1.15 mg/dL Normal 0.00-1.30 [facility] Comment on above: Performed By: #### L 501.4100, L3890.6301, L501.4600, L100.0100, L501.9520, L001.0705, L501.2300, L501.4305, L501.4405, L500.4100, L506.1001 ####[facility] [address] [place], [place], [id number] Total proteinOrdered By: Vincent Flores on 01-23-2025 Protein [Mass/Vol] 7.4 g/dL 5.9-8.4 [facility] Triglycerides measurementOrd ered By: Vincent Flores on 01-23-2025 Triglyceride [Mass/Vol] 52 mg/dL <199 [facility] Comment on above: The drugs N-Acetylcy steine and Metamizole may falsely depress this assay. Normal range: <150 mg/dLBorderline High: 150-199 mg/dLHigh: 200-499 mg/dLVery High: >500 mg/dL Urine protein measurement (m ass/volume)Ordered By: Jeremy Mcgarry on 01-23-2025 Protein (U) [Mass/Vol] 32.2 mg/dL High 0.0-12.0 [facility] Urine protein/creatinine mas s ratioOrdered By: Jeremy Mcgarry on 01-23-2025 Protein/Creatinine (U) [Mass ratio] 477 mg/g CRE High 0-200 [facility] Vitamin D,25 Hydroxyon 01-23 Vitamin D 25-OH 34.9 ng/mL Normal 30-100 [facility] Comment on above: Result Comment: Haydee min D StatusDeficiency: <20 ng/mL (50nmol/L)Insufficiency: 20-30 ng/mL (50-75 nmol/L)Sufficiency: 30-100 ng/mL (75-250 nmol/L)Toxicity: >100 ng/mL (>250 nmol/L) Performed By: #### L 501.4100, L3890.6301, L501.4600, L100.0100, L501.9520, L001.0705, L501.2300, L501.4305, L501.4405, L500.4100, L506.1001 ####[facility] [address] [place], [address] White blood cell (WBC) count Ordered By: Vincent Flores on 01-23-2025 WBC (Bld) [#/Vol] 9.3 10*3/uL 4.4-11.0 [facility] Anion gap in Serum or Plasma Ordered By: Dianne Stovall on 01-11-2025 Anion gap [Moles/Vol] 13 mmol/L 5-15 [facility] BUN/creatinine ratioOrdered By: Dianne Stovall on 01-11-2025 Urea nitrogen/Creatinine [Mass ratio] 20.6 mg/mg High 04-23 [facility] Basic Metabolic Profile (BMP )on 01-11-2025 BUN/CRE 20.6 RATIO High 04-23 [facility] Comment on above: Performed By: #### L 500.2500 ####[facility] [address] [place], [address] Calcium [Mass/Vol] 9.0 mg/dL Normal 7.6-11.0 [facility] Comment on above: Performed By: #### L 500.2500 ####[facility] [address] [place], [address] Chloride [Moles/Vol] 95 mmol/L Low 98-108 [facility] Comment on above: Performed By: #### L 500.2500 ####[facility] [address] [place], [address] CO2 [Moles/Vol] 25.5 mmol/L Normal 21.0-32.0 [facility] Comment on above: Performed By: #### L 500.2500 ####[facility] [address] [place], [address] Creatinine [Mass/Vol] 1.97 mg/dL High 0.70-1.20 [facility] Comment on above: Performed By: #### L 500.2500 ####[facility] [address] [place], [address] ECRCL 21.99 ml/min Low 50-250 [facility] Comment on above: Performed By: #### L 500.2500 ####[facility] [address] [place], [address] GAP 13 Normal 5-15 [facility] Comment on above: Performed By: #### L 500.2500 ####[facility] [address] [place], [address] GFR/1.73 sq M.predicted among non-blacks MDRD (S/P/Bld) [Vol rate/Area] 25 mL/min/{1.73_m2} Low >60 [facility] Comment on above: Result Comment: mL/m in/1.73m2 CKD-EPI Creatinine Equation (2020) Performed By: #### L 500.2500 ####[facility] [address] [place], [address] Glucose [Mass/Vol] 117 mg/dL High 70-99 [facility] Comment on above: Performed By: #### L 500.2500 ####[facility] [address] [place], [address] Potassium [Moles/Vol] 4.4 mmol/L Normal 3.3-5.1 [facility] Comment on above: Performed By: #### L 500.2500 ####[facility] [address] [place], [address] Sodium [Moles/Vol] 134 mmol/L Normal 133-145 [facility] Comment on above: Performed By: #### L 500.2500 ####[facility] [address] [place], [address] Urea nitrogen [Mass/Vol] 41 mg/dL High 4-19 [facility] Comment on above: Performed By: #### L 500.2500 ####[facility] [address] [place], [address] Bedside Glucoseon 01-11-2025 FINGERSTICK GLU 116 mg/dL High 74-106 [facility] Comment on above: Result Comment: JOHNSON MCCORMACK OF PATIENT CARE PER NURSING PROTOCOL Performed By: #### L 501.080 ####[facility] [address] [place], [address] Carbon dioxide, total [Moles /volume] in Central venous bloodOrdered By: Dianne Stovall on 01-11-2025 CO2 [Moles/Vol] 25.5 mmol/L 21.0-32.0 [facility] Chloride assayOrdered By: Beryl Stovall on 01-11-2025 Chloride [Moles/Vol] 95 mmol/L Low 98-108 [facility] Discharge Instructionon 01-02 Discharge Instruction Normal [facility] Glomerular filtration rate ( GFR) estimation/1.73 sq m using serum, plasma, or whole bOrdered By: Dianne Stovall on 01-11-2025 GFR/1.73 sq M.predicted among non-blacks MDRD (S/P/Bld) [Vol rate/Area] 25 mL/min/{1.73_m2} Low >60 [facility] Comment on above: mL/min/1.73m2 CKD-EP I Creatinine Equation (2020) Glucose measurement at [facility] deOrdered By: Dianne Stovall on 01-11-2025 Glucose [Mass/Vol] 116 mg/dL High 74-106 [facility] Comment on above: MANAGEMENT OF PATIEN T CARE PER NURSING PROTOCOL Potassium measurement (mass/ volume)Ordered By: Dianne Stovall on 01-11-2025 Potassium (Unsp spec) [Mass/Vol] 4.4 mmol/L 3.3-5.1 [facility] Serum creatinine measurement (mass/volume)Ordered By: Dianne Stovall on 01-11-2025 Creatinine [Mass/Vol] 1.97 mg/dL High 0.70-1.20 [facility] Serum glucose measurement (m ass/volume)Ordered By: Dianne Stovall on 01-11-2025 Glucose [Mass/Vol] 117 mg/dL High 70-99 [facility] Serum or plasma calcium bijan urement (mass/volume)Ordered By: Dianne Stovall on 01-11-2025 Calcium [Mass/Vol] 9.0 mg/dL 7.6-11.0 [facility] Serum or plasma urea nitroge n measurement (mass/volume)Ordered By: Dianne Stovall on 01-11-2025 Urea nitrogen [Mass/Vol] 41 mg/dL High 4-19 [facility] Sodium levelOrdered By: Dianne Stovall on 01-11-2025 Sodium [Moles/Vol] 134 mmol/L 133-145 [facility] Bedside Glucoseon 01-10-2025 FINGERSTICK GLU 126 mg/dL High 74-106 [facility] Comment on above: Result Comment: JOHNSON MCCORMACK OF PATIENT CARE PER NURSING PROTOCOL Performed By: #### L 501.080 ####[facility] [address] [place], [address] FINGERSTICK GLU 133 mg/dL High 74-106 [facility] Comment on above: Result Comment: JOHNSON GEMENT OF PATIENT CARE PER NURSING PROTOCOL Performed By: #### L 501.080 ####[facility] [address] [place], [address] FINGERSTICK GLU 134 mg/dL High 74-106 [facility] Comment on above: Result Comment: JOHNSON GEMENT OF PATIENT CARE PER NURSING PROTOCOL Performed By: #### L 501.080 ####[facility] [address] [place], [address] Basic Metabolic Profile (BMP )on 01-09-2025 BUN/CRE 23.6 RATIO High 10-20 [facility] Comment on above: Performed By: #### L 500.2500 ####[facility] [address] [place], [address] Calcium [Mass/Vol] 8.9 mg/dL Normal 7.6-11.0 [facility] Comment on above: Performed By: #### L 500.2500 ####[facility] [address] [place], [address] Chloride [Moles/Vol] 95 mmol/L Low 98-108 [facility] Comment on above: Performed By: #### L 500.2500 ####[facility] [address] [place], [address] CO2 [Moles/Vol] 24.5 mmol/L Normal 21.0-32.0 [facility] Comment on above: Performed By: #### L 500.2500 ####[facility] [address] [place], [address] Creatinine [Mass/Vol] 1.85 mg/dL High 0.70-1.20 [facility] Comment on above: Performed By: #### L 500.2500 ####[facility] [address] [place], [address] ECRCL 23.14 ml/min Low 50-250 [facility] Comment on above: Performed By: #### L 500.2500 ####[facility] [address] [place], [address] GAP 13 Normal 5-15 [facility] Comment on above: Performed By: #### L 500.2500 ####[facility] [address] [place], [address] GFR/1.73 sq M.predicted among non-blacks MDRD (S/P/Bld) [Vol rate/Area] 27 mL/min/{1.73_m2} Low >60 [facility] Comment on above: Result Comment: mL/m in/1.73m2 CKD-EPI Creatinine Equation (2020) Performed By: #### L 500.2500 ####[facility] [address] [place], [address] Glucose [Mass/Vol] 135 mg/dL High 70-99 [facility] Comment on above: Performed By: #### L 500.2500 ####[facility] [address] [place], [address] Potassium [Moles/Vol] 4.5 mmol/L Normal 3.3-5.1 [facility] Comment on above: Performed By: #### L 500.2500 ####[facility] [address] [place], [address] Sodium [Moles/Vol] 133 mmol/L Normal 133-145 [facility] Comment on above: Performed By: #### L 500.2500 ####[facility] [address] [place], [address] Urea nitrogen [Mass/Vol] 44 mg/dL High 4-19 [facility] Comment on above: Performed By: #### L 500.2500 ####[facility] [address] [place], [address] Bedside Glucoseon 01-09-2025 FINGERSTICK GLU 111 mg/dL High 74-106 [facility] Comment on above: Result Comment: JOHNSON GEMENT OF PATIENT CARE PER NURSING PROTOCOL Performed By: #### L 501.080 ####[facility] [address] [place], [address] FINGERSTICK GLU 214 mg/dL High 74-106 [facility] Comment on above: Result Comment: JOHNSON GEMENT OF PATIENT CARE PER NURSING PROTOCOL Performed By: #### L 501.080 ####[facility] [address] [place], [address] FINGERSTICK GLU 132 mg/dL High 74-106 [facility] Comment on above: Result Comment: JOHNSON GEMENT OF PATIENT CARE PER NURSING PROTOCOL Performed By: #### L 501.080 ####[facility] [address] [place], [address] Absolute lymphocyte countOrd ered By: Radha Heller on 01-08-2025 Lymphocytes Auto (Unsp spec) [#/Vol] 2.11 10*3/uL 0.83-4.51 [facility] Absolute neutrophil countOrd ered By: Radha Heller on 01-08-2025 Neutrophils (Bld) [#/Vol] 3.0 10*3/uL 2.0-7.7 [facility] Automated lymphocyte count a s percentage of total leukocytesOrdered By: Radha Heller on 01-08-2025 Lymphocytes/100 WBC Auto (Unsp spec) 33.8 % 19-41 [facility] Basic Metabolic Profile (BMP )on 01-08-2025 BUN/CRE 24.9 RATIO High 10-20 [facility] Comment on above: Performed By: #### L 501.5200, L501.9520, L100.0100, L500.2500, L500.4100 ####[facility] [address] [place], [address] Calcium [Mass/Vol] 8.8 mg/dL Normal 7.6-11.0 [facility] Comment on above: Performed By: #### L 501.5200, L501.9520, L100.0100, L500.2500, L500.4100 ####[facility] [address] [place], [address] Chloride [Moles/Vol] 93 mmol/L Low 98-108 [facility] Comment on above: Performed By: #### L 501.5200, L501.9520, L100.0100, L500.2500, L500.4100 ####[facility] [address] [place], [address] CO2 [Moles/Vol] 25.7 mmol/L Normal 21.0-32.0 [facility] Comment on above: Performed By: #### L 501.5200, L501.9520, L100.0100, L500.2500, L500.4100 ####[facility] [address] [place], [address] Creatinine [Mass/Vol] 1.79 mg/dL High 0.70-1.20 [facility] Comment on above: Performed By: #### L 501.5200, L501.9520, L100.0100, L500.2500, L500.4100 ####[facility] [address] [place], [address] ECRCL 23.72 ml/min Low 50-250 [facility] Comment on above: Performed By: #### L 501.5200, L501.9520, L100.0100, L500.2500, L500.4100 ####[facility] [address] [place], [address] GAP 12 Normal 5-15 [facility] Comment on above: Performed By: #### L 501.5200, L501.9520, L100.0100, L500.2500, L500.4100 ####[facility] [address] [place], [address] GFR/1.73 sq M.predicted among non-blacks MDRD (S/P/Bld) [Vol rate/Area] 28 mL/min/{1.73_m2} Low >60 [facility] Comment on above: Result Comment: mL/m in/1.73m2 CKD-EPI Creatinine Equation (2020) Performed By: #### L 501.5200, L501.9520, L100.0100, L500.2500, L500.4100 ####[facility] [address] [place], [address] Glucose [Mass/Vol] 129 mg/dL High 70-99 [facility] Comment on above: Performed By: #### L 501.5200, L501.9520, L100.0100, L500.2500, L500.4100 ####[facility] [address] [place], [address] Potassium [Moles/Vol] 4.1 mmol/L Normal 3.3-5.1 [facility] Comment on above: Performed By: #### L 501.5200, L501.9520, L100.0100, L500.2500, L500.4100 ####[facility] [address] [place], [address] Sodium [Moles/Vol] 130 mmol/L Low 133-145 [facility] Comment on above: Performed By: #### L 501.5200, L501.9520, L100.0100, L500.2500, L500.4100 ####[facility] [address] [place], [address] Urea nitrogen [Mass/Vol] 45 mg/dL High 4-19 [facility] Comment on above: Performed By: #### L 501.5200, L501.9520, L100.0100, L500.2500, L500.4100 ####[facility] [address] [place], [address] Basophil percentageOrdered B y: Radha Hleler on 01-08-2025 Basophils/100 WBC (Bld) 1.0 % 0-1 [facility] Bedside Glucoseon 01-08-2025 FINGERSTICK GLU 184 mg/dL High 74-106 [facility] Comment on above: Result Comment: JOHNSON GEMENT OF PATIENT CARE PER NURSING PROTOCOL Performed By: #### L 501.080 ####[facility] [address] [place], [address] FINGERSTICK GLU 136 mg/dL High 74-106 [facility] Comment on above: Result Comment: JOHNSON GEMENT OF PATIENT CARE PER NURSING PROTOCOL Performed By: #### L 501.080 ####[facility] [address] [place], [address] FINGERSTICK GLU 124 mg/dL High 74-106 [facility] Comment on above: Result Comment: JOHNSON GEMENT OF PATIENT CARE PER NURSING PROTOCOL Performed By: #### L 501.080 ####[facility] [address] [place], [address] Blood manual differential co mment interpretation (narrative result)Ordered By: Radha Heller on 01-08-2025 Manual differential comment Cristhian (Bld) [Interp] SCANNED [facility] CBC W/Diff, Automatedon RED CELL MORPH NORM C+C Normal NORM C C [facility] Comment on above: Performed By: #### L 501.5200, L501.9520, L100.0100, L500.2500, L500.4100 ####[facility] [address] [place], [address] PLT EST ADEQUATE Normal ADEQ [facility] Comment on above: Performed By: #### L 501.5200, L501.9520, L100.0100, L500.2500, L500.4100 ####[facility] [address] [place], [address] SMEAR COMMENT SCANNED Normal [facility] Comment on above: Performed By: #### L 501.5200, L501.9520, L100.0100, L500.2500, L500.4100 ####[facility] [address] [place], [address] Calculated very low density lipoprotein (VLDL) cholesterol measurementOrdered By: Radha Heller on 01-08-2025 Calculated very low density lipoprotein (VLDL) cholesterol measurement 14 mg/dL 5-40 [facility] Carotid Duplex Ultrasoundon 01-08-2025 Carotid Duplex Ultrasound Normal [facility] Consultation - Nephrologyon 01-08-2025 Consultation - Nephrology Normal [facility] Discharge Instructionon Discharge Instruction Normal [facility] Duplex ultrasound of carotid artery reportOrdered By: Abundio Turcios on 01-08-2025 Study report [facility] [address] [place] [address] Carotid Duplex Ultrasound 01/08/25 0841 MR#: [id number] Acct: [id number] Name: BERTA SANCHES Rep #:[id number] : [...] the left vertebral artery. Procedure Carotid Duplex 47384. This is a Carotid Duplex examination using [...] 1244 Date _ Abundio Turcios MD CC: FOUNDRY WORKERSammy Collazo; Dr. Carla Ha DO; Dr. Dianne Stovall, ~ Date Dictated: 01/08/25 0841 Date Transcribed: 01/08/25 1244 Classroom Instructor: Signed [facility] Work Phone: Echocardiogram study reportO rdered By: Yaniv Masters on 01-08-2025 Study report [facility] [address] [place] [address] Echo Complete 01/08/25 1058 MR#: [id number] Acct: [id number] Name: BERTA SANCHES Rep #:[id number] : 1945 79 From: Yaniv Foreman Attending Dr: Dr. Dianne Stovall DO Status: ADM IN Ordering Dr: Radha Heller MD Date: Location: [facility] Sex: F C Admitted: 01/07/25 Reason [...] Dictated: 01/08/25 1058 Date Transcribed: 01/08/25 1302 Classroom Instructor: Signed [facility] Work Phone: Electrocardiogram reportOrde red By: Yaniv Masters on 01-08-2025 EKG study [facility] [address] [place] [address] 12 Lead EKG 01/07/25 1257 MR#: [id number] Acct: [id number] Name: BERTA SANCHES SCOTTIE Rep #:[id number] : 1945 79 From: Yaniv Masters MD Attending Dr: Dr. Dianne Stovall DO Status: ADM IN Ordering Dr: Sheree Simmons Date: 01/07/25 Location: [facility] Sex: F C Admitted: 01/07/25 Test [...] ECG Confirmed by YANIV MASTERS MD ([id number]), book or script editor ROJELIO TADEO ([id number]) on 01/08/2025 11:01:47 AM Referred By: Confirmed By: YANIV MASTERS MD 01/08/25 1101 Date _ Yaniv Masters MD CC: FOUNDRY WORKER-Ivett Collazo; Dr. Dianne Stovall DO; FERNANDO Uriostegui ~ Signed [facility] Work Phone: Eosinophil percentageOrdered By: Radha Heller on 01-08-2025 Eosinophils/100 WBC (Bld) 2.1 % 0-5 [facility] Erythrocyte distribution wid th ratioOrdered By: Radha Heller on 01-08-2025 Erythrocyte distribution width (RBC) [Ratio] 19.8 % High 11.6-14.6 [facility] Erythrocyte distribution wid th standard deviationOrdered By: Radha Heller on 01-08-2025 Erythrocyte distribution width (RBC) [Ratio] 64.7 fl High 35.1-43.9 [facility] Erythrocyte morphology asses smentOrdered By: Radha Heller on 01-08-2025 RBC morphology finding Nom (Bld) NORM C+C NORMAL NORM C&C [facility] Hematocrit Auto (Bld) [Volum e fraction]Ordered By: Radha Heller on 01-08-2025 Hematocrit (Bld) [Volume fraction] 28.4 % Low 37-47 [facility] Hemoglobin A1con 01-08-2025 HbA1c (Bld) [Mass fraction] 7.0 % High <=5.6 [facility] Comment on above: Result Comment: Norm al < 5.7 % Prediabetic 5.7 - 6.4 % Diabetic >or= 6.5 % Please note range changes. Performed By: #### L 501.9922 ####[facility] [address] [place], [address] Hemoglobin A1c percentageOrd ered By: Carla Barksdale on 01-08-2025 HbA1c (Bld) [Mass fraction] 7.0 % High <5.7 [facility] Comment on above: Normal < 5.7 % Predi abetic 5.7 - 6.4 % Diabetic >or= 6.5 % Please note range changes. Hemoglobin measurementOrdere d By: Radha Heller on 01-08-2025 Hemoglobin (Bld) [Mass/Vol] 9.0 g/dL Low 12.0-15.0 [facility] Immature granulocytes/100 WB C Auto (Bld)Ordered By: Radha Heller on 01-08-2025 Immature granulocytes/100 WBC (Bld) 0.300 % 0.0-0.9 [facility] Comment on above: IG% - Immature Granu locytes (promyelocytes, myelocytes and metamyelocytes) > 1% indicates that a LEFT SHIFT is Present. LDL calc ser/plasOrdered By: Radha Heller on 01-08-2025 Cholesterol in LDL [Mass/Vol] 26 mg/dL [facility] Comment on above: Asqkidtibl=964-705 m g/dL & Higher Uunb=082 mg/dL or greater Lipid Profileon 01-08-2025 CHOL:HDL 2.38 Normal [facility] Comment on above: Performed By: #### L 501.5200, L501.9520, L100.0100, L500.2500, L500.4100 ####[facility] [address] [place], [place], [address] Cholesterol [Mass/Vol] 68 mg/dL Normal <=200 [facility] Comment on above: Result Comment: Chol esterol level, Desirable <200 mg/dLBorderline high cholesterol 200-239 mg/dLHigh cholesterol >=240 mg/dLRecommendations of the NCEP Adult Treatment Panel for thefollowing risk-cutoff thresholds for the [place] [employer]. Performed By: #### L 501.5200, L501.9520, L100.0100, L500.2500, L500.4100 ####[facility] [address] [place], [place], [address] Cholesterol in HDL [Mass/Vol] 29 mg/dL Low [facility] Comment on above: Result Comment: Ligia onal Cholesterol Education Program (NCEP) guidelines:<40 mg/dL: Low HDL-cholesterol (major risk factor for CHD)>= 60 mg/dL: High HDL-cholesterol (negative risk factor forCHD)HDL-cholesterol is affected by a number of factors, e.g.smoking, exercise, hormones, sex and age. Performed By: #### L 501.5200, L501.9520, L100.0100, L500.2500, L500.4100 ####[facility] [address] [place], [address] Cholesterol in LDL [Mass/Vol] 26 mg/dL Normal [facility] Comment on above: Result Comment: Bord jkyigj=517-371 mg/dL Higher Qpjb=454 mg/dL or greater Performed By: #### L 501.5200, L501.9520, L100.0100, L500.2500, L500.4100 ####[facility] [address] [place], [address] Cholesterol in VLDL [Mass/Vol] 14 mg/dL Normal 5-40 [facility] Comment on above: Performed By: #### L 501.5200, L501.9520, L100.0100, L500.2500, L500.4100 ####[facility] [address] [place], [address] Triglyceride [Mass/Vol] 69 mg/dL Normal [facility] Comment on above: Result Comment: The drugs N-Acetylcysteine and Metamizole may falselydepress this assay.Normal range: <150 mg/dLBorderline High: 150-199 mg/dLHigh: 200-499 mg/dLVery High: >500 mg/dL Performed By: #### L 501.5200, L501.9520, L100.0100, L500.2500, L500.4100 ####[facility] [address] [place], [address] MCV (mean corpuscular volume ) determinationOrdered By: Radha Heller on 01-08-2025 MCV (RBC) [Entitic vol] 89.3 fL 81-99 [facility] Magnesiumon 01-08-2025 Magnesium [Mass/Vol] 2.4 mg/dL High 1.5-2.2 [facility] Comment on above: Performed By: #### L 501.5200, L501.9520, L100.0100, L500.2500, L500.4100 ####[facility] [address] [place], [place], [id number] Magnesium measurement (mass/ volume)Ordered By: Radha Heller on 01-08-2025 Magnesium (Unsp spec) [Mass/Vol] 2.4 mg/dL High 1.5-2.2 [facility] Mean corpuscular hemoglobin (MCH) determinationOrdered By: Radha Heller on 01-08-2025 MCH (RBC) [Entitic mass] 28.3 pg 27.0-32.0 [facility] Mean corpuscular hemoglobin concentration (MCHC) determinationOrdered By: Radha Heller on 01-08-2025 MCHC (RBC) [Mass/Vol] 31.7 g/dL Low 32-36 [facility] Mean platelet volume determi nationOrdered By: Radha Heller on 01-08-2025 Platelet mean volume (Bld) [Entitic vol] 9.6 fL 6.2-12.0 [facility] Monocyte percentageOrdered B y: Radha Heller on 01-08-2025 Monocytes/100 WBC (Bld) 15.5 % High 0-10 [facility] Neutrophil percentageOrdered By: Radha Heller on 01-08-2025 Neutrophils/100 WBC (Bld) 47.3 % 47-70 [facility] Nucleated red blood cell per centageOrdered By: Radha Heller on 01-08-2025 Nucleated RBC/100 WBC (Bld) [Ratio] 0 % 0-5 [facility] Platelet countOrdered By: Fernando Heller on 01-08-2025 Platelets (Bld) [#/Vol] 155 10*3/uL 150-450 [facility] Platelet estimateOrdered By: Radha Heller on 01-08-2025 Platelets LM Ql (Bld) ADEQUATE ADEQ [facility] RBC Auto (Bld) [#/Vol]Ordere d By: Radha Heller on 01-08-2025 RBC (Bld) [#/Vol] 3.18 10*6/uL Low 4.2-5.4 [facility] Screening total cholesterol/ high density lipoprotein (HDL) cholesterol ratioOrdered By: Radha Heller on 01-08-2025 Cholesterol.total/Gin sterol in HDL [Mass ratio] 2.38 {ratio} [facility] Serum or plasma cholesterol in HDL measurement (mass/volume)Ordered By: Radha Heller on 01-08-2025 Cholesterol in HDL [Mass/Vol] 29 mg/dL Low >40 [facility] Comment on above: National Cholesterol Education Program (NCEP) guidelines:<40 mg/dL: Low HDL-cholesterol (major risk factor for CHD)>= 60 mg/dL: High HDL-cholesterol (negative risk factor for CHD)HDL-cholesterol is affected by a number of factors, e.g. smoking, exercise, hormones, sex and age. Serum or plasma cholesterol measurement (mass/volume)Ordered By: Radha Heller on 01-08-2025 Cholesterol [Mass/Vol] 68 mg/dL <201 [facility] Comment on above: Cholesterol level, D esirable <200 mg/dLBorderline high cholesterol 200-239 mg/dLHigh cholesterol >=240 mg/dLRecommendations of the NCEP Adult Treatment Panel for the following risk-cutoff thresholds for the [place] population. TSH DL <= 0.005 mIU/L QnOrde red By: Radha Heller on 01-08-2025 TSH Qn 4.850 uIU/mL High 0.300-4.200 [facility] Thyroid Stim Hormone (TSH)on 01-08-2025 TSH 4.850 uIU/mL High 0.300-4.200 [facility] Comment on above: Performed By: #### L 501.5200, L501.9520, L100.0100, L500.2500, L500.4100 ####[facility] [address] [place], [place], [address] Triglycerides measurementOrd ered By: Radha Heller on 01-08-2025 Triglyceride [Mass/Vol] 69 mg/dL <199 [facility] Comment on above: The drugs N-Acetylcy steine and Metamizole may falsely depress this assay. Normal range: <150 mg/dLBorderline High: 150-199 mg/dLHigh: 200-499 mg/dLVery High: >500 mg/dL White blood cell (WBC) count Ordered By: Radha Heller on 01-08-2025 WBC (Bld) [#/Vol] 6.3 10*3/uL 4.4-11.0 [facility] 12 Lead EKGon 01-07-2025 12 Lead EKG Normal [facility] Absolute lymphocyte countOrd ered By: ED PROVIDER on 01-07-2025 Lymphocytes Auto (Unsp spec) [#/Vol] 1.52 10*3/uL 0.83-4.51 [facility] Absolute neutrophil countOrd ered By: ED PROVIDER on 01-07-2025 Neutrophils (Bld) [#/Vol] 3.8 10*3/uL 2.0-7.7 [facility] Anion gap in Serum or Plasma Ordered By: ED PROVIDER on 01-07-2025 Anion gap [Moles/Vol] 15 mmol/L 11-16 [facility] Automated lymphocyte count a s percentage of total leukocytesOrdered By: ED PROVIDER on 01-07-2025 Lymphocytes/100 WBC Auto (Unsp spec) 24.2 % 19-41 [facility] BUN/creatinine ratioOrdered By: ED PROVIDER on 01-07-2025 Urea nitrogen/Creatinine [Mass ratio] 26.4 mg/mg High 10-20 [facility] Basic Metabolic Profile (BMP )on 01-07-2025 BUN/CRE 26.4 RATIO High 10- [facility] Comment on above: Performed By: #### L 500.2500, L100.0100 ####[facility] [address] [place], [address] ECRCL 24.26 ml/min Low 50-250 [facility] Comment on above: Performed By: #### L 500.2500, L100.0100 ####[facility] [address] [place], [address] GAP 15 Normal - [facility] Comment on above: Performed By: #### L 500.2500, L100.0100 ####[facility] [address] [place], [address] Potassium [Moles/Vol] 4.2 mmol/L Normal 3.3-5.1 [facility] Comment on above: Performed By: #### L 500.2500, L100.0100 ####[facility] [address] [place], [address] Basophil percentageOrdered B y: ED PROVIDER on 01-07-2025 Basophils/100 WBC (Bld) 1.0 % 0-1 [facility] Bedside Glucoseon 01-07-2025 FINGERSTICK GLU 166 mg/dL High 74-106 [facility] Comment on above: Result Comment: JOHNSON GEMENT OF PATIENT CARE PER NURSING PROTOCOL Performed By: #### L 501.080 ####[facility] [address] [place], [address] FINGERSTICK GLU 104 mg/dL Normal 74-106 [facility] Comment on above: Result Comment: JOHNSON GEMENT OF PATIENT CARE PER NURSING PROTOCOL Performed By: #### L 501.080 ####[facility] [address] [place], [address] CBC W/Diff, AutomatedOrdered By: ED PROVIDER on 01-07-2025 Anisocytosis Ql (Bld) 1+ Normal [facility] Comment on above: Performed By: #### L 500.2500, L100.0100 ####[facility] [address] [place], [address] Carbon dioxide, total [Moles /volume] in Central venous bloodOrdered By: ED PROVIDER on 01-07-2025 CO2 [Moles/Vol] 23.9 mmol/L Normal 21.0-32.0 [facility] Comment on above: Performed By: #### L 500.2500, L100.0100 ####[facility] [address] [place], [address] Chest PA and Lateralon 01-07 Chest PA and Lateral Normal [facility] Chloride assayOrdered By: ED PROVIDER on 01-07-2025 Chloride [Moles/Vol] 91 mmol/L Low 98-108 [facility] Comment on above: Performed By: #### L 500.2500, L100.0100 ####[facility] [address] [place], [place], [address] Echo Completeon 01-07-2025 Echo Complete Normal [facility] Emergency Department Summary on 01-07-2025 Emergency Department Summary Normal [facility] Eosinophil percentageOrdered By: ED PROVIDER on 01-07-2025 Eosinophils/100 WBC (Bld) 1.8 % 0-5 [facility] Erythrocyte distribution wid th ratioOrdered By: ED PROVIDER on 01-07-2025 Erythrocyte distribution width (RBC) [Ratio] 19.9 % High 11.6-14.6 [facility] Erythrocyte distribution wid th standard deviationOrdered By: ED PROVIDER on 01-07-2025 Erythrocyte distribution width (RBC) [Ratio] 65.6 fl High 35.1-43.9 [facility] Glomerular filtration rate ( GFR) estimation/1.73 sq m using serum, plasma, or whole bOrdered By: ED PROVIDER on 01-07-2025 GFR/1.73 sq M.predicted among non-blacks MDRD (S/P/Bld) [Vol rate/Area] 29 mL/min/{1.73_m2} Low >60 [facility] Comment on above: mL/min/1.73m2 CKD-EP I Creatinine Equation (2020) Result Comment: mL/m in/1.73m2 CKD-EPI Creatinine Equation (2020) Performed By: #### L 500.2500, L100.0100 ####[facility] [address] [place], [address] H AND P Exam - Hospitaliston 01-07-2025 H&P Exam - Hospitalist Normal [facility] Hematocrit Auto (Bld) [Volum e fraction]Ordered By: ED PROVIDER on 01-07-2025 Hematocrit (Bld) [Volume fraction] 29.6 % Low 37-47 [facility] Hemoglobin measurementOrdere d By: ED PROVIDER on 01-07-2025 Hemoglobin (Bld) [Mass/Vol] 9.4 g/dL Low 12.0-15.0 [facility] Immature granulocytes/100 WB C Auto (Bld)Ordered By: ED PROVIDER on 01-07-2025 Immature granulocytes/100 WBC (Bld) 0.300 % 0.0-0.9 [facility] Comment on above: IG% - Immature Granu locytes (promyelocytes, myelocytes and metamyelocytes) > 1% indicates that a LEFT SHIFT is Present. L499.0042on 01-07-2025 Trop T High Sen 68 ng/L Invalid Interpretation Code <=14 [facility] Comment on above: Result Comment: Crit ical Result(s) Called at: 01/07/2025-15:45 by: Francisco J Carrera.??Results read back by same. Performed By: #### L 499.0042 ####[facility] [address] [facility] [place], [address] L501.4021on 01-07-2025 Trop T High Sen 71 ng/L Invalid Interpretation Code <=14 [facility] Comment on above: Result Comment: Crit ical Result(s) Called at: 01/07/2025-13:48 by: Andreea.??Results read back by same. Performed By: #### L 501.4021, L503.5825 ####[facility] [address] [facility] [place], [address] L503.7505on 01-07-2025 Natriuretic peptide B (Bld) [Mass/Vol] 00966 pg/mL High <=1800 [facility] Comment on above: Result Comment: Hear t Failure Unlikely: < 300 pg/mLHeart Failure Likely< 50 Years: > 450 pg/mL50-75 Years: > 900 pg/mL>75 Years: > 1800 pg/mL Performed By: #### L 501.4021, L503.7505 ####[facility] [address] [facility] [place], [place], [address] MCV (mean corpuscular volume ) determinationOrdered By: ED PROVIDER on 01-07-2025 MCV (RBC) [Entitic vol] 90.0 fL 81-99 [facility] Mean corpuscular hemoglobin (MCH) determinationOrdered By: ED PROVIDER on 01-07-2025 MCH (RBC) [Entitic mass] 28.6 pg 27.0-32.0 [facility] Mean corpuscular hemoglobin concentration (MCHC) determinationOrdered By: ED PROVIDER on 01-07-2025 MCHC (RBC) [Mass/Vol] 31.8 g/dL Low 32-36 [facility] Mean platelet volume determi nationOrdered By: ED PROVIDER on 01-07-2025 Platelet mean volume (Bld) [Entitic vol] 9.6 fL 6.2-12.0 [facility] Monocyte percentageOrdered B y: ED PROVIDER on 01-07-2025 Monocytes/100 WBC (Bld) 12.9 % High 0-10 [facility] Natriuretic peptide.B prohor daria N-Terminal [Mass/volume] in Serum or PlasmaOrdered By: Sheree Simmons on 01-07-2025 Natriuretic peptide.B prohormone N-Terminal [Mass/Vol] 81768 pg/mL High <1800 [facility] Comment on above: Heart Failure Unlike ly: < 300 pg/mLHeart Failure Likely< 50 Years: > 450 pg/mL50-75 Years: > 900 pg/mL>75 Years: > 1800 pg/mL Neutrophil percentageOrdered By: ED PROVIDER on 01-07-2025 Neutrophils/100 WBC (Bld) 59.8 % 47-70 [facility] No Panel InformationOrdered By: ED PROVIDER on 01-07-2025 1+ [facility] Nucleated red blood cell per centageOrdered By: ED PROVIDER on 01-07-2025 Nucleated RBC/100 WBC (Bld) [Ratio] 0 % 0-5 [facility] Platelet countOrdered By: ED PROVIDER on 01-07-2025 Platelets (Bld) [#/Vol] 165 10*3/uL 150-450 [facility] Potassium measurement (mass/ volume)Ordered By: ED PROVIDER on 01-07-2025 Potassium (Unsp spec) [Mass/Vol] 4.2 mmol/L 3.3-5.1 [facility] RBC Auto (Bld) [#/Vol]Ordere d By: ED PROVIDER on 01-07-2025 RBC (Bld) [#/Vol] 3.29 10*6/uL Low 4.2-5.4 [facility] STROKE Brain/Head without Co nton 01-07-2025 STROKE Brain/Head without Cont Normal [facility] STROKE CTA Head AND Neck W/C onon 01-07-2025 STROKE CTA Head AND Neck W/Con Normal [facility] Serum creatinine measurement (mass/volume)Ordered By: ED PROVIDER on 01-07-2025 Creatinine [Mass/Vol] 1.77 mg/dL High 0.70-1.20 [facility] Comment on above: Performed By: #### L 500.2500, L100.0100 ####[facility] [address] [place], [address] Serum glucose measurement (m ass/volume)Ordered By: ED PROVIDER on 01-07-2025 Glucose [Mass/Vol] 194 mg/dL High 70-99 [facility] Comment on above: Performed By: #### L 500.2500, L100.0100 ####[facility] [address] [place], [address] Serum or plasma calcium bijan urement (mass/volume)Ordered By: ED PROVIDER on 01-07-2025 Calcium [Mass/Vol] 8.8 mg/dL Normal 7.6-11.0 [facility] Comment on above: Performed By: #### L 500.2500, L100.0100 ####[facility] [address] [place], [address] Serum or plasma urea nitroge n measurement (mass/volume)Ordered By: ED PROVIDER on 01-07-2025 Urea nitrogen [Mass/Vol] 47 mg/dL High 4-19 [facility] Comment on above: Performed By: #### L 500.2500, L100.0100 ####[facility] [address] [place], [address] Sodium levelOrdered By: ED Yue AUSTIN on 01-07-2025 Sodium [Moles/Vol] 129 mmol/L Low 133-145 [facility] Comment on above: Performed By: #### L 500.2500, L100.0100 ####[facility] [address] [place], [address] Troponin T.cardiac [Mass/vol ume] in Serum or Plasma by High sensitivity methodOrdered By: Sheree Simmons on 01-07-2025 Troponin T.cardiac High sensitivity method [Mass/Vol] 68 ng/L Critically high <14 [facility] Comment on above: Critical Result(s) C alled at: 01/07/2025-15:45 by: Tai Garcia to Jen Carrera. Results read back by same. Troponin T.cardiac High sensitivity method [Mass/Vol] 71 ng/L Critically high <14 [facility] Comment on above: Critical Result(s) C alled at: 01/07/2025-13:48 by: Danika Blanchard. Results read back by same. White blood cell (WBC) count Ordered By: ED PROVIDER on 01-07-2025 WBC (Bld) [#/Vol] 6.3 10*3/uL 4.4-11.0 [facility] CNOVon 01-01-2025 CNOV Office Visit (JOHNNY ) BERTA SANCHES ([id number]) 1945 [place] Date Time Provider Department 01/01/25 11:00 AM CARLA BURDICK During your visit today, we recorded the following information about you: Pulse Respiration Blood pressure Weight 84/minute 18/minute 156/60 67.4 kg Height 1.575 m Carla Burdick MD 01/01/2025 12:27 PM Signed [facility] SE[facility]IONAL CARDIOLOGY Cardiology ([facility]) [address] [facility] [id number] OUTPATIENT VISIT DATE 01/01/2025 PRIMARY CARE PHYSICIAN: Doreen Le [address] [place] [address] HISTORY OF PRESENT ILLNESS: Ms. 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 Lua PACEMAKER 10/2019 PART. HYSTERECTOMY W/WO RMVL OVARIES/TUBES 1973 h/o cervical cancer ovaries remain PAST SURGICAL HISTORY OF 1996 Aortic valve repair, Dr. Apodaca PAST SURGICAL HISTORY OF 2001 [address] Beltrán, [facility] PAST SURGICAL HISTORY OF 2015 [...] and 1 (more content not included)... 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 [facility] BERTA SANCHES ([id number]) 1945 F [place] Date Time Provider Department 12/20/24 8:45 AM LARS SILVA During your visit today, we recorded the following information about you: Pulse Blood pressure Weight 77/minute 154/75 67.4 kg Lars Silva, DO 12/20/2024 5:56 PM Signed [facility] [place] DEPARTMENT OF VASCULAR SURGERY OUTPATIENT VISIT DATE December 20, 2024 OUTPATIENT VISIT TYPE ESTABLISHED SERVICE DATE: 12/20/2024 SERVICE TIME: 8:53 AM PRIMARY CARE PHYSICIAN: Deysi Collazo APRN.GRAVEDIGGER HISTORY OF PRESENT ILLNESS: Ms. Sanches is a 79 year old female who presents today for a vascular surgery follow-up visit follow up on mesenteric duplex. She recently increased her lasix at the CHF clinic. She had a stent placed in [place] in September. She was recently admitted to [place] for anemia. She has noted increased swelling. 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 Lua PACEMAKER 10/2019 PART. HYSTERECTOMY W/WO RMVL OVARIES/TUBES 1974 h/o cervical cancer ovaries remain PAST SURGICAL HISTORY OF 1996 Aortic valve repair, Dr. Apodaca PAST SURGICAL HISTORY OF 2001 [address] Beltrán, [facility] PAST SURGICAL HISTORY OF 2015 [...] (more content not included)... Normal [facility] MESENTERIC ARTERY CMPLT V LABon 12-20-2024 MESENTERIC ARTERY CMPLT VAS LAB Non-Invasive Vascular Laboratory [place] [facility] Renal or Mesenteric Duplex [...] Unable to visualize. Technologist: Chantell Ferrari RVT, [facility] Ordering physician: LARS SILVA Interpreting physician: Terrance Oseguera MD, BIJAN Final CC [employer] Medical Image : [id number] csSISUID See Link below for Image Normal [facility] CNOVon 12-19-2024 CN [facility] BERTA SANCHES ([id number]) 1945 F [facility] Date Time Provider Department 12/19/24 11:00 AM ALBIN GU [facility] During your visit today, we recorded the following information about you: Pulse Blood pressure Weight 79/minute 157/54 65.3 kg Albin Gu APRN.GRAVEDIGGER 12/19/2024 11:41 AM Addendum 40 mg intravenous [...] or concern, you can call me at [phone]. Albin Gu APRN.CNP 12/19/2024 11:45 AM Signed [facility] [place] [facility] Heart Failure Clinic OUTPATIENT VISIT [...] and was worried about traveling home to [place] in a few days. Discussed with her taking lasix as it was prescribed. As her spironolactone was stopped, did advise patient restart this at 25 mg once a day for four days only. She was instructed to call office in a week to review symptoms. On 10/15, patient presented back to [facility] for gastrointestinal bleed. She had a [...] and entresto. The patient wished to leave [place] so she could return to [place]. Cardiology and Pulmonary agreed with discharge. Patient [...] lbs Hospital disch (more content not included)... [facility] 12-13-2024 [facility] Telephone ([facility]) BERTA SANCHES ([id number]) 1945 [facility] Date Time Provider Department 12/13/24 DEYSI COLLAZO [facility] During your visit today, we recorded the following information about you: Alex Gonzalez 12/13/2024 9:36 AM Signed Transitional Care Management (TCM) [facility] Monitoring Program Provider Action / FYI: N/A SUMMARY: Outreach type: INITIAL OUTREACH Discharge Network Status: In-Network Discharge Source of Patient: [facility] TCM Discharge Report Patient discharged from [facility] on December 12. Admitted for Acute on chronic diastolic CHF (congestive heart failure) ([facility]). Contact made with patient: No - next [...] 02/26/2014 03/21/2022 Intracranial aneurysm [I67.1] 08/30/2015 10/05/2022 intermediate current use of antiarrhythmic medical*10/20/2016 09/12/2021 [...] [C64.9] 04 (more content not included)... Normal [facility] Basic metabolic 2000 panelon 12-12-2024 Anion gap [Moles/Vol] 12 mmol/L Normal 8-15 [facility] Comment on above: Order Comment: Speci men Type: BLOOD SPECIMEN Ordering Facility: [facility] Address: [address] [place] [address] Performed By: #### 1 91239, 75537-4 #### [facility] CLIA [id number] [address] [place] [address] [place] Calcium [Mass/Vol] 8.8 mg/dL Normal 8.5-10.2 [facility] Comment on above: Order Comment: Speci men Type: BLOOD SPECIMEN Ordering Facility: [facility] Address: [address] [place] [address] Performed By: #### 1 91239, 43159-7 #### [facility] CLIA [id number] [address] [place] [address] [place] Chloride [Moles/Vol] 96 mmol/L Low 98-107 [facility] Comment on above: Order Comment: Speci men Type: BLOOD SPECIMEN Ordering Facility: [facility] Address: [address] [place] [address] Performed By: #### 1 91239, 02071-9 #### [facility] CLIA [id number] [address] [place] [address] [place] CO2 [Moles/Vol] 26 mmol/L Normal 22-30 [facility] Comment on above: Order Comment: Speci men Type: BLOOD SPECIMEN Ordering Facility: [facility] Address: [address] [place] [address] Performed By: #### 1 91239, 05300-8 #### [facility] CLIA [id number] [address] [place] [address] [place] Creatinine [Mass/Vol] 1.69 mg/dL High 0.58-0.96 [facility] Comment on above: Order Comment: Speci men Type: BLOOD SPECIMEN Ordering Facility: [facility] Address: [address] [place] [address] Performed By: #### 1 91239, 06730-5 #### [facility] CLIA [id number] [address] Creatinine and Glomerular filtration rate.predicted panel (S/P/Bld) 31 mL/min/1.73m??? Low >=60 [facility] Comment on above: Order Comment: Speci men Type: BLOOD SPECIMEN Ordering Facility: [facility] Address: [address] [place] [address] Result Comment: Mira mated Glomerular Filtration Rate [...] actual GFR. Performed By: #### 1 9123-9, 94969-6 #### [facility] CLIA [id number] [address] [place] [address] [place] Glucose [Mass/Vol] 170 mg/dL High 74-99 [facility] Comment on above: Order Comment: Annie ricci Type: BLOOD SPECIMEN Ordering Facility: [facility] Address: [address] [place] [address] Result Comment: The [place] [employer] (ADA) provides guidance for cutoff [...] Standards of Medical Care in Diabetes 2016, [place] [employer]. Diabetes Care. 2016.39(Suppl 1). Performed By: #### 1 9123-9, 86809-8 #### [facility] CLIA [id number] [address] [place] [id number] [place] Potassium [Moles/Vol] 4.1 mmol/L Normal 3.7-5.1 [facility] Comment on above: Order Comment: Annie ricci Type: BLOOD SPECIMEN Ordering Facility: [facility] Address: [address] [place] [id number] Performed By: #### 1 9123-9, 83943-7 #### [facility] CLIA [id number] [address] [place] Sodium [Moles/Vol] 134 mmol/L Low 136-144 [facility] Comment on above: Order Comment: Speci men Type: BLOOD SPECIMEN Ordering Facility: [facility] Address: [address] [place] [address] Performed By: #### 1 9123-9, 06822-5 #### [facility] CLIA [id number] [address] [place] [address] [place] Urea nitrogen [Mass/Vol] 47 mg/dL High 7-21 [facility] Comment on above: Order Comment: Speci men Type: BLOOD SPECIMEN Ordering Facility: [facility] Address: [address] [place] [address] Performed By: #### 1 9123-9, 31787-9 #### [facility] CLIA [id number] [address] [place] CBC panel Auto (Bld)on 12-12 Erythrocyte distribution width (RBC) [Ratio] 15.9 % High 11.5-15.0 [facility] Comment on above: Order Comment: Speci men Type: BLOOD SPECIMEN Ordering Facility: [facility] Address: [address] [place] [address] Performed By: #### 5 8410-2 #### [facility] CLIA [id number] [address] Hematocrit (Bld) [Volume fraction] 25.0 % Low 36.0-46.0 [facility] Comment on above: Order Comment: Speci men Type: BLOOD SPECIMEN Ordering Facility: [facility] Address: [address] [place] [address] Performed By: #### 5 8410-2 #### [facility] CLIA [id number] [address] [place] Hemoglobin (Bld) [Mass/Vol] 8.0 g/dL Low 11.5-15.5 [facility] Comment on above: Order Comment: Speci men Type: BLOOD SPECIMEN Ordering Facility: [facility] Address: [address] [place] [address] Performed By: #### 5 8410-2 #### [facility] CLIA [id number] [address] MCH (RBC) [Entitic mass] 28.6 pg Normal 26.0-34.0 [facility] Comment on above: Order Comment: Speci men Type: BLOOD SPECIMEN Ordering Facility: [facility] Address: [address] [place] [address] Performed By: #### 5 8410-2 #### [facility] CLIA [id number] [address] MCHC (RBC) [Mass/Vol] 32.0 g/dL Normal 30.5-36.0 [facility] Comment on above: Order Comment: Speci men Type: BLOOD SPECIMEN Ordering Facility: [facility] Address: [address] [place] [address] Performed By: #### 5 8410-2 #### [facility] CLIA [id number] [address] MCV (RBC) [Entitic vol] 89.3 fL Normal 80.0-100.0 [facility] Comment on above: Order Comment: Speci men Type: BLOOD SPECIMEN Ordering Facility: [facility] Address: [address] [place] [address] Performed By: #### 5 8410-2 #### [facility] CLIA [id number] [address] Nucleated RBC (Bld) [#/Vol] 10*3/uL Normal <0.01 [facility] Comment on above: Order Comment: Speci men Type: BLOOD SPECIMEN Ordering Facility: [facility] Address: [address] [place] [address] Performed By: #### 5 8410-2 #### [facility] CLIA [id number] [address] Platelet mean volume (Bld) [Entitic vol] 9.9 fL Normal 9.0-12.7 [facility] Comment on above: Order Comment: Speci men Type: BLOOD SPECIMEN Ordering Facility: [facility] Address: [address] [place] [address] Performed By: #### 5 8410-2 #### [facility] CLIA [id number] [address] [place] Platelets (Bld) [#/Vol] 148 10*3/uL Low 150-400 [facility] Comment on above: Order Comment: Speci men Type: BLOOD SPECIMEN Ordering Facility: [facility] Address: [address] [place] [address] Performed By: #### 5 8410-2 #### [facility] CLIA [id number] [address] [place] [address] [place] RBC (Bld) [#/Vol] 2.80 10*6/uL Low 3.90-5.20 [facility] Comment on above: Order Comment: Speci men Type: BLOOD SPECIMEN Ordering Facility: [facility] Address: [address] [place] [address] Performed By: #### 5 8410-2 #### [facility] CLIA [id number] [address] [place] WBC (Bld) [#/Vol] 9.29 10*3/uL Normal 3.70-11.00 [facility] Comment on above: Order Comment: Speci men Type: BLOOD SPECIMEN Ordering Facility: [facility] Address: [address] [place] [address] Performed By: #### 5 8410-2 #### [facility] CLIA [id number] [address] [place] CNDSon 12-12-2024 CNDS HNO ID: [id number] Author: JUAN DIEGO KNOWLES MD Service: Hospital [...] You also have anemia related to taking residential blood thinners and you got better with iron. 1. Take a higher dose of torsemide and follow up with a institution director and our CHF clinic to guide your [...] Surgery placed. 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 Patient presenting with [...] results. FOLLOW-UP APPOINTMENTS ALREADY SCHEDULED WITH A [facility] PROVIDER: Future Appointments Date Time Provider Department Center 12/21/2024 9:00 AM Albin Gu, OPTICAL MANAGER.[facility] 01/01/2025 11:00 AM Carla Burdick MD [facility] [place] 01/10/2025 1:00 PM Deysi Collazo APRN.[facility] 02/26/2025 2:20 PM Carla Burdick MD [...] how you (more content not included)... Normal [facility] CONSULT PROGon 12-12-2024 CONSULT PROG HNO ID: [id number] Author: BETSY HALL MD Service: Nephrology Author [...] urine creatinine (more content not included)... Normal [facility] Magnesium SerPl-ncon 12-12 Magnesium [Mass/Vol] 2.0 mg/dL Normal 1.7-2.3 [facility] Comment on above: Order Comment: Annie ricci Type: BLOOD SPECIMEN Ordering Facility: [facility] Address: [address] [place] [address] Performed By: #### 1 9123-9, 22298-2 #### [facility] CLIA [id number] [address] [place] [address] [place] ALBUMIN/CREATININE RATIO, UR INEon 12-11-2024 Albumin DL <= 20 mg/L (U) [Mass/Vol] 23.5 mg/L Normal [facility] Comment on above: Order Comment: Annie ricci Type: BLOOD SPECIMEN Ordering Facility: [facility] Address: [address] [place] [address] Performed By: #### 2 132-9, 2284-8 #### [facility] CLIA [id number] [address] Albumin/Creatinine (U) [Mass ratio] 76 mg/g High <30 [facility] Comment on above: Order Comment: Annie ricci Type: BLOOD SPECIMEN Ordering Facility: [facility] Address: [address] [place], [place] [address] Result Comment: Adul t Male and Female Nephrotic Criteria: <30 mg/g is considered normal to mildly increased 30-300 mg/g is considered moderately increased >300 mg/g is considered severely increased KDIGO. (2013). KDIGO 2012 Clinical Practice Guideline for the Evaluation and Management of Chronic Kidney Disease. Official Journal of the International Society of Nephrology, 3(1), 1-150. Performed By: #### 2 132-9, 2284-8 #### [facility] CLIA [id number] [address] OF [facility] ALLIED HEALTHon 12-11-2024 ALLIED HEALTH HNO ID: [id number] Author: NUNU CHATMAN RDMS Service: ? Author [...] PATIENT PRESENTS WITH AN IMPLANTABLE OR ATTACHED OFFSET PRINTING OPERATOR: N/A RADIOLOGY DEPARTMENT: Ultrasound PERIPHERAL IV DATA: Not applicable SIGNED BY: Nunu Chatman RDMS December 11, 2024 9:14 AM Normal [facility] Basic metabolic 2000 panelon 12-11-2024 Anion gap [Moles/Vol] 13 mmol/L Normal 8-15 [facility] Comment on above: Order Comment: Annie ricci Type: BLOOD SPECIMEN Ordering Facility: [facility] Address: [address] [place] [address] Performed By: #### 2 276-4, 13296-9, 65556-6, 39307-2 #### [facility] CLIA [id number] [address] [place] [address] [place] Calcium [Mass/Vol] 8.9 mg/dL Normal 8.5-10.2 [facility] Comment on above: Order Comment: Speci men Type: BLOOD SPECIMEN Ordering Facility: [facility] Address: [address] [place] [address] Performed By: #### 2 276-4, 90895-4, 65528-2, 58482-7 #### [facility] CLIA [id number] [address] [place] [address] [place] Chloride [Moles/Vol] 93 mmol/L Low 98-107 [facility] Comment on above: Order Comment: Speci men Type: BLOOD SPECIMEN Ordering Facility: [facility] Address: [address] [place] [address] Performed By: #### 2 276-4, 63129-6, 10512-1, 74675-9 #### [facility] CLIA [id number] [address] [place] [address] [place] CO2 [Moles/Vol] 24 mmol/L Normal 22-30 [facility] Comment on above: Order Comment: Speci men Type: BLOOD SPECIMEN Ordering Facility: [facility] Address: [address] [place] [address] Performed By: #### 2 276-4, 96534-1, 87466-7, 03990-7 #### [facility] CLIA [id number] [address] [place] [address] [place] Creatinine [Mass/Vol] 1.70 mg/dL High 0.58-0.96 [facility] Comment on above: Order Comment: Speci men Type: BLOOD SPECIMEN Ordering Facility: [facility] Address: [address] [place] [address] Performed By: #### 2 276-4, 56353-1, 88679-4, 76829-4 #### [facility] CLIA [id number] [address] [place] [address] [place] Creatinine and Glomerular filtration rate.predicted panel (S/P/Bld) 30 mL/min/1.73m??? Low >=60 [facility] Comment on above: Order Comment: Annie ricci Type: BLOOD SPECIMEN Ordering Facility: [facility] Address: [address] [place] [address] Result Comment: Mira mated Glomerular Filtration Rate [...] actual GFR. Performed By: #### 2 276-4, 17413-7, 72708-7, 06396-6 #### [facility] CLIA [id number] [address] [place] [address] [place] Glucose [Mass/Vol] 144 mg/dL High 74-99 [facility] Comment on above: Order Comment: Annie ricci Type: BLOOD SPECIMEN Ordering Facility: [facility] Address: [address] [place] [address] Result Comment: The [place] Diabetes Association (ADA) provides guidance for cutoff [...] Standards of Medical Care in Diabetes 2016, [place] [employer]. Diabetes Care. 2016.39(Suppl 1). Performed By: #### 2 276-4, 17284-0, 66665-9, 77225-0 #### [facility] CLIA [id number] 1000 [place] [id number] [place] Potassium [Moles/Vol] 3.6 mmol/L Low 3.7-5.1 [facility] Comment on above: Order Comment: Speci men Type: BLOOD SPECIMEN Ordering Facility: [facility] Address: [address] [place] [address] Performed By: #### 2 276-4, 21090-6, 63050-5, 89047-2 #### [facility] CLIA [id number] [address] [place] [address] [place] Sodium [Moles/Vol] 130 mmol/L Low 136-144 [facility] Comment on above: Order Comment: Speci men Type: BLOOD SPECIMEN Ordering Facility: [facility] Address: [address] [place] [address] Performed By: #### 2 276-4, 60244-7, 07863-0, 43294-1 #### [facility] CLIA [id number] [address] [place] Urea nitrogen [Mass/Vol] 54 mg/dL High 7-21 [facility] Comment on above: Order Comment: Speci men Type: BLOOD SPECIMEN Ordering Facility: [facility] Address: [address] [place] [address] Performed By: #### 2 276-4, 51273-8, 60305-6, 02021-1 #### [facility] CLIA [id number] [address] [place] CBC panel Auto (Bld)on 12-11 Erythrocyte distribution width (RBC) [Ratio] 16.1 % High 11.5-15.0 [facility] Comment on above: Order Comment: Speci men Type: BLOOD SPECIMEN Ordering Facility: [facility] Address: [address] [place] [address] Performed By: #### 2 132-9, 8 #### [facility] CLIA [id number] [address] [place] Hematocrit (Bld) [Volume fraction] 23.8 % Low 36.0-46.0 [facility] Comment on above: Order Comment: Speci men Type: BLOOD SPECIMEN Ordering Facility: [facility] Address: [address] [place] [address] Performed By: #### 2 132-9, 8 #### [facility] CLIA [id number] [address] [place] Hemoglobin (Bld) [Mass/Vol] 7.6 g/dL Low 11.5-15.5 [facility] Comment on above: Order Comment: Speci men Type: BLOOD SPECIMEN Ordering Facility: [facility] Address: [address] [place] [address] Performed By: #### 2 132-9, 8 #### [facility] CLIA [id number] [address] [place] MCH (RBC) [Entitic mass] 28.4 pg Normal 26.0-34.0 [facility] Comment on above: Order Comment: Speci men Type: BLOOD SPECIMEN Ordering Facility: [facility] Address: [address] [place] [address] Performed By: #### 2 132-9, 8 #### [facility] CLIA [id number] [address] MCHC (RBC) [Mass/Vol] 31.9 g/dL Normal 30.5-36.0 [facility] Comment on above: Order Comment: Speci men Type: BLOOD SPECIMEN Ordering Facility: [facility] Address: [address] [place] [address] Performed By: #### 2 132-9, 8 #### [facility] CLIA [id number] [address] [place] MCV (RBC) [Entitic vol] 88.8 fL Normal 80.0-100.0 [facility] Comment on above: Order Comment: Speci men Type: BLOOD SPECIMEN Ordering Facility: [facility] Address: [address] [place] [address] Performed By: #### 2 132-9, 8 #### [facility] CLIA [id number] [address] OF [facility] Nucleated RBC (Bld) [#/Vol] 10*3/uL Normal <0.01 [facility] Comment on above: Order Comment: Speci men Type: BLOOD SPECIMEN Ordering Facility: [facility] Address: [address] [place] [address] Performed By: #### 2 132-9, 2283-8 #### [facility] CLIA [id number] [address] [place] [address] [place] Platelet mean volume (Bld) [Entitic vol] 9.8 fL Normal 9.0-12.7 [facility] Comment on above: Order Comment: Speci men Type: BLOOD SPECIMEN Ordering Facility: [facility] Address: [address] [place] [address] Performed By: #### 2 132-9, 2283-8 #### [facility] CLIA [id number] [address] [place] [address] [place] Platelets (Bld) [#/Vol] 160 10*3/uL Normal 150-400 [facility] Comment on above: Order Comment: Speci men Type: BLOOD SPECIMEN Ordering Facility: [facility] Address: [address] [place] [address] Performed By: #### 2 132-9, 2283-8 #### [facility] CLIA [id number] [address] [place] [address] [place] RBC (Bld) [#/Vol] 2.68 10*6/uL Low 3.90-5.20 [facility] Comment on above: Order Comment: Speci men Type: BLOOD SPECIMEN Ordering Facility: [facility] Address: [address] [place] [address] Performed By: #### 2 132-9, 2283-8 #### [facility] CLIA [id number] [address] [place] [address] [place] WBC (Bld) [#/Vol] 7.37 10*3/uL Normal 3.70-11.00 [facility] Comment on above: Order Comment: Speci men Type: BLOOD SPECIMEN Ordering Facility: [facility] Address: [address] [place] [address] Performed By: #### 2 132-9, 2283-8 #### [facility] CLIA [id number] [address] [place] CNPNon 12-11-2024 JASPREETN Telephone (4CQ) BERTA SANCHES ([id number]) 1945 F [facility] Date Time Provider Department 12/11/24 DEYSI COLLAZO 4CQ During your visit today, we recorded the following information about you: Marilyn Cesar 12/11/2024 11:06 AM Signed Patient called to cancel hospital follow up due to re admission yesterday 12/10/2024 Sigifredo Rivera LPN 12/11/2024 11:15 AM Signed Pt re admitted to [facility]. GOPI Hill Christy, APRN.CNP 12/11/2024 1:06 PM Signed Noted. Deysi Collazo APRN.GRAVEDIGGER Allergies As of Date: 12/11/2024 Noted Allergy [...] 02/26/2014 03/21/2022 Intracranial aneurysm [I67.1] 08/30/2015 10/05/2022 intermediate current use of antiarrhythmic medical*10/20/2016 09/12/2021 [...] [J90] 03/06 (more content not included)... Normal [facility] CONSULTon 12-11-2024 CONSULT HNO ID: [id number] Author: HEMANT JIMENEZ MD Service: Gastroenterology Author Type: Physician Type: Consults Filed: 12/11/2024 15:46 Note Text: GASTROENTEROLOGY CONSULT NOTE PATIENT NAME: Berta Sanches SERVICE DATE: December 11, 2024 SERVICE TIME: 11:59 AM PRIMARY CARE PHYSICIAN: Deysi Collazo APRN.GRAVEDIGGER ATTENDING PHYSICIAN:Juan Diego Knowles MD REASON FOR ADMISSION: CHF REASON FOR CONSULTATION:BUSHRA HPI: This is a 79 year old female with a past medical history significant for cervical cancer, brain aneurysm, s/p coiling, bilateral carotid stenosis, afib s/p watchman 2022, D-CHF, SSS S/P pacemaker placement, Hx AVR, CKD3, HTN, DM, GERD, diverticulitis, 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 Lua PACEMAKER 10/2019 PART. HYSTERECTOMY W/WO RMVL OVARIES/TUBES 1973 h/o cervical cancer ovaries remain PAST SURGICAL HISTORY OF 1996 Aortic valve repair, Dr. Apodaca PAST SURGICAL HISTORY OF 2001 [address] Beltrán, [facility] PAST SURGICAL HISTORY OF 2016 [...] , 12/09/2024 t (more content not included)... [facility] CONSULT PROGon 12-11-2024 CONSULT PROG HNO ID: [id number] Author: BETSY HALL MD Service: Nephrology Author [...] p.o. twice daily -- Previous record from [place] reviewed in detail. -- Kidney ultrasound from 10/04/2024 reviewed. Significantly increased velocity in proximal left renal artery suggestive of left renal artery stenosis -- Repeat kidney ultrasound and renal artery duplex Normal [facility] Creat ?Tm Ur-mCncon 12-12-19 25 Creatinine (U) [Mass/Vol] 31.1 mg/dL Normal 20.0-300.0 [facility] Comment on above: Order Comment: Speci men Type: BLOOD SPECIMEN Ordering Facility: [facility] Address: [facility] [place] [address] Performed By: #### 2 132-9, 8 #### [facility] CLIA [id number] [address] [place] [address] [place] Ferritin SerPl-mCncon 2024 Ferritin [Mass/Vol] 36.2 ng/mL Normal 14.7-205.1 [facility] Comment on above: Order Comment: Speci men Type: BLOOD SPECIMEN Ordering Facility: [facility] Address: [address] [place] [address] Performed By: #### 2 276-4, 54359-1, 41460-0, 79498-6 #### [facility] CLIA [id number] [address] [place] [address] [place] Folate SerPl-mCncon 12-12-19 Folate [Mass/Vol] 11.3 ng/mL Normal >4.7 [facility] Comment on above: Order Comment: Speci men Type: BLOOD SPECIMEN Ordering Facility: [facility] Address: [address] [place] [address] Performed By: #### 2 132-9, 8 #### [facility] CLIA [id number] [address] [place] [address] [place] Iron and Iron binding capaci ty panelon 12-11-2024 Iron [Mass/Vol] 17 ug/dL Low 41-186 [facility] Comment on above: Order Comment: Speci men Type: BLOOD SPECIMEN Ordering Facility: [facility] Address: [address] [place] [address] Performed By: #### 2 132-9, 8 #### [facility] CLIA [id number] [address] [place] [address] [place] Iron binding capacity [Mass/Vol] 416 ug/dL High 232-386 [facility] Comment on above: Order Comment: Speci men Type: BLOOD SPECIMEN Ordering Facility: [facility] Address: [address] [place] [address] Performed By: #### 2 132-9, 2283-8 #### [facility] CLIA [id number] [address] [place] [address] [place] Iron/TIBC [Molar ratio] 4.1 % Low 15.0-57.0 [facility] Comment on above: Order Comment: Annie keiry Type: BLOOD SPECIMEN Ordering Facility: [facility] Address: [address] [place] [address] Performed By: #### 2 132-9, 2284-8 #### [facility] CLIA [id number] [address] OF [facility] Magnesium SerPl-mCncon 12-11 Magnesium [Mass/Vol] 1.8 mg/dL Normal 1.7-2.3 [facility] Comment on above: Order Comment: Annie keiry Type: BLOOD SPECIMEN Ordering Facility: [facility] Address: [address] [place] [address] Performed By: #### 2 276-4, 44384-6, 17379-4, 71846-2 #### [facility] CLIA [id number] [address] [place] NURSING PROGon 12-11-2024 NURSING PROG HNO ID: [id number] Author: BRIANNA BETANCOURT, DOUG Service: Nursing Author Type: Registered Nurse Type: Nursing Progress Note Filed: 12/11/2024 15:17 Note Text: PATIENT EDUCATION HEART FAILURE PATIENT NAME: Berta Sanches PATIENT LOCATION: [place] [address] [address] 2 SURVIVAL SKILLS: Low Sodium Diet Weight [...] Cardiology Electronically Signed By: Brianna Betancourt Normal [facility] OCCULT BLD EXAM-DIAGon 12-11 OCCULT BLD EXAM-DIAG Positive Abnormal [facility] Comment on above: Performed By: #### 1 9123-9, 82635-8 #### [facility] CLIA [id number] [address] [place] [address] [place] Prot/Creat Uron 12-11-2024 Protein/Creatinine (U) [Mass ratio] 0.26 mg/mg High <0.15 [facility] Comment on above: Order Comment: Annie ricci Type: BLOOD SPECIMEN Ordering Facility: [facility] Address: [address] [place] [address] Result Comment: Adul t Proteinuria Categories: <0.15 mg/mg is considered normal to mildly increased 0.15 - 0.50 mg/mg is considered moderately increased >0.50 mg/mg is considered severely increased KDIGO. (2013). KDIGO 2012 Clinical Practice Guideline for the Evaluation and Management of Chronic Kidney Disease. Official Journal of the International Society of Nephrology, 3(1), 1-150. Performed By: #### 2 132-9, 2284-8 #### [facility] CLIA [id number] [address] [place] [address] [place] Protein/Creatinine (U) [Mass ratio]on 12-11-2024 Protein (U) [Mass/Vol] 8 mg/dL Normal 0-20 [facility] Comment on above: Order Comment: Annie ricci Type: BLOOD SPECIMEN Ordering Facility: [facility] Address: [address] [place] [address] Performed By: #### 2 132-9, 2284-8 #### [facility] CLIA [id number] [address] [place] [address] [place] Sodium ?Tm Ur-sCncon 025 Sodium Unsp time (U) [Moles/Vol] 67 mmol/L Normal 14-216 [facility] Comment on above: Order Comment: Speci men Type: BLOOD SPECIMEN Ordering Facility: [facility] Address: [address] [place] [address] Performed By: #### 2 132-9, 2284-8 #### [facility] CLIA [id number] [address] [place] [address] [place] UREA NITROGEN, RANDOM URINEo n 12-11-2024 UREA NITROGEN,UR,RAN 400 mg/dL Normal 140-1500 [facility] Comment on above: Order Comment: Speci men Type: BLOOD SPECIMEN Ordering Facility: [facility] Address: [address] [place] [address] Performed By: #### 2 132-9, 2284-8 #### [facility] CLIA [id number] [address] [place] [address] [place] URINALYSIS, REFLEX MICROSCOP ICon 12-11-2024 Bilirubin Ql (U) Negative Normal Negative [facility] Comment on above: Order Comment: Speci men Type: URINE SPECIMEN Ordering Facility: [facility] Address: [address] [place] [address] Performed By: #### L [id number] #### [facility] CLIA [id number] [address] [place] [address] [place] Clarity (Unsp spec) Clear Normal Clear [facility] Comment on above: Order Comment: Speci men Type: URINE SPECIMEN Ordering Facility: [facility] Address: [address] [place] [address] Performed By: #### L [id number] #### [facility] CLIA [id number] [address] [place] Color (U) Yellow Normal Yellow [facility] Comment on above: Order Comment: Speci men Type: URINE SPECIMEN Ordering Facility: [facility] Address: [address] [place] [address] Performed By: #### L [id number] #### [facility] CLIA [id number] [address] Glucose Test strip (U) [Mass/Vol] Negative Normal Negative [facility] Comment on above: Order Comment: Speci men Type: URINE SPECIMEN Ordering Facility: [facility] Address: [facility] [place] [address] Performed By: #### L [id number] #### [facility] CLIA [id number] [address] [place] Hemoglobin Ql (U) Negative Normal Negative [facility] Comment on above: Order Comment: Speci men Type: URINE SPECIMEN Ordering Facility: [facility] Address: [address] [place] [address] Performed By: #### L [id number] #### [facility] CLIA [id number] [address] [place] Ketones Ql (U) Negative Normal Negative [facility] Comment on above: Order Comment: Speci men Type: URINE SPECIMEN Ordering Facility: [facility] Address: [address] [place] [address] Performed By: #### L [id number] #### [facility] CLIA [id number] [address] Leukocyte esterase Test strip Ql (U) Negative Normal Negative [facility] Comment on above: Order Comment: Speci men Type: URINE SPECIMEN Ordering Facility: [facility] Address: [facility] [place] [address] Performed By: #### L [id number] #### [facility] CLIA [id number] [address] Nitrite Ql (U) Negative Normal Negative [facility] Comment on above: Order Comment: Speci men Type: URINE SPECIMEN Ordering Facility: [facility] Address: [facility] [place] [address] Performed By: #### L [id number] #### [facility] CLIA [id number] [address] [place] [address] [place] pH (U) 6.5 [pH] Normal 5.0-8.0 [facility] Comment on above: Order Comment: Speci men Type: URINE SPECIMEN Ordering Facility: [facility] Address: [address] [place] [address] Performed By: #### L [id number] #### [facility] CLIA [id number] [address] Protein (U) [Mass/Vol] Negative Normal Negative [facility] Comment on above: Order Comment: Speci men Type: URINE SPECIMEN Ordering Facility: [facility] Address: [address] [place] [address] Performed By: #### L [id number] #### [facility] CLIA [id number] [address] Specific gravity (U) [Rel density] 1.010 Normal 1.005-1.030 [facility] Comment on above: Order Comment: Speci men Type: URINE SPECIMEN Ordering Facility: [facility] Address: [address] [place] [address] Performed By: #### L [id number] #### [facility] CLIA [id number] [address] Urobilinogen Ql (U) 0.2 EU/dL Normal 0.2-1.0 EU/dL [facility] Comment on above: Order Comment: Speci men Type: URINE SPECIMEN Ordering Facility: [facility] Address: [address] [place] [address] Performed By: #### L [id number] #### [facility] CLIA [id number] [address] [place] [address] [place] US RENAL ARTERY/VEINon [...] LEFT: 60-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 Classroom Instructor: JAMES Transcribe Date/Time: Dec 11 2024 11:31A Dictated by : ANNETTA ALLEN DO This examination was interpreted and the report reviewed and electronically signed by: ANNETTA ALLEN DO on Dec 11 2024 11:41AM EST [id number] Normal [facility] Vit B12 SerPl-ncon 025 Cobalamin (Vitamin B12) [Mass/Vol] 1393 pg/mL High 232-1245 [facility] Comment on above: Order Comment: Speci men Type: BLOOD SPECIMEN Ordering Facility: [facility] Address: [address] [place] [address] Performed By: #### 2 132-9, 2284-8 #### [facility] CLIA [id number] [address] [place] [address] [place] ALLIED HEALTHon 12-10-2024 ALLIED HEALTH HNO ID: [id number] Author: SHONDA CUNNINGHAM RT(R) Service: Radiology Author [...] PATIENT PRESENTS WITH AN IMPLANTABLE OR ATTACHED OFFSET PRINTING OPERATOR: No RADIOLOGY DEPARTMENT: General X-ray: Exam(s) Completed: Chest X-Ray PERIPHERAL IV DATA: Not applicable SIGNED BY: RT Boyd(R) December 10, 2024 8:10 AM Normal [facility] CBC W Auto Differential pane l (Bld)on 12-10-2024 Basophils (Bld) [#/Vol] 0.09 10*3/uL Normal <0.11 [facility] Comment on above: Order Comment: Speci men Type: BLOOD SPECIMEN Ordering Facility: [facility] Address: [address] [place] [address] Performed By: #### 5 7021-8 #### [facility] CLIA [id number] [address] [place] [address] [place] Basophils/100 WBC (Bld) 1.1 % Normal [facility] Comment on above: Order Comment: Speci men Type: BLOOD SPECIMEN Ordering Facility: [facility] Address: [address] [place] [address] Performed By: #### 5 7021-8 #### [facility] CLIA [id number] [address] [place] [address] [place] Differential cell count method Nom (Bld) Auto Normal [facility] Comment on above: Order Comment: Speci men Type: BLOOD SPECIMEN Ordering Facility: [facility] Address: [address] [place] [address] Performed By: #### 5 7021-8 #### [facility] CLIA [id number] [address] [place] [address] [place] Eosinophils (Bld) [#/Vol] 0.21 10*3/uL Normal <0.46 [facility] Comment on above: Order Comment: Speci men Type: BLOOD SPECIMEN Ordering Facility: [facility] Address: [address] [place] [address] Performed By: #### 5 7021-8 #### [facility] CLIA [id number] [address] Eosinophils/100 WBC (Bld) 2.6 % Normal [facility] Comment on above: Order Comment: Speci men Type: BLOOD SPECIMEN Ordering Facility: [facility] Address: [address] [place] [address] Performed By: #### 5 7021-8 #### [facility] CLIA [id number] [address] [place] Erythrocyte distribution width (RBC) [Ratio] 16.2 % High 11.5-15.0 [facility] Comment on above: Order Comment: Speci men Type: BLOOD SPECIMEN Ordering Facility: [facility] Address: [address] [place] [address] Performed By: #### 5 7021-8 #### [facility] CLIA [id number] [address] [place] Hematocrit (Bld) [Volume fraction] 26.5 % Low 36.0-46.0 [facility] Comment on above: Order Comment: Speci men Type: BLOOD SPECIMEN Ordering Facility: [facility] Address: [address] [place] [address] Performed By: #### 5 7021-8 #### [facility] CLIA [id number] [address] [place] Hemoglobin (Bld) [Mass/Vol] 8.2 g/dL Low 11.5-15.5 [facility] Comment on above: Order Comment: Speci men Type: BLOOD SPECIMEN Ordering Facility: [facility] Address: [address] [place] [address] Performed By: #### 5 7021-8 #### [facility] CLIA [id number] [address] Immature granulocytes (Bld) [#/Vol] 0.03 10*3/uL Normal <0.10 [facility] Comment on above: Order Comment: Speci men Type: BLOOD SPECIMEN Ordering Facility: [facility] Address: [address] [place] [address] Performed By: #### 5 7021-8 #### [facility] CLIA [id number] [address] Immature granulocytes/100 WBC (Bld) 0.4 % Normal [facility] Comment on above: Order Comment: Speci men Type: BLOOD SPECIMEN Ordering Facility: [facility] Address: [address] [place] [address] Performed By: #### 5 7021-8 #### [facility] CLIA [id number] [address] [place] Lymphocytes (Bld) [#/Vol] 2.52 10*3/uL Normal 1.00-4.00 [facility] Comment on above: Order Comment: Speci men Type: BLOOD SPECIMEN Ordering Facility: [facility] Address: [address] [place] [address] Performed By: #### 5 7021-8 #### [facility] CLIA [id number] [address] Lymphocytes/100 WBC (Bld) 30.7 % Normal [facility] Comment on above: Order Comment: Speci men Type: BLOOD SPECIMEN Ordering Facility: [facility] Address: [address] [place] [address] Performed By: #### 5 7021-8 #### [facility] CLIA [id number] [address] [place] [address] [place] MCH (RBC) [Entitic mass] 28.5 pg Normal 26.0-34.0 [facility] Comment on above: Order Comment: Speci men Type: BLOOD SPECIMEN Ordering Facility: [facility] Address: [address] [place] [address] Performed By: #### 5 7021-8 #### [facility] CLIA [id number] [address] STATES OF [facility] MCHC (RBC) [Mass/Vol] 30.9 g/dL Normal 30.5-36.0 [facility] Comment on above: Order Comment: Speci men Type: BLOOD SPECIMEN Ordering Facility: [facility] Address: [address] [place] [address] Performed By: #### 5 7021-8 #### [facility] CLIA [id number] [address] MCV (RBC) [Entitic vol] 92.0 fL Normal 80.0-100.0 [facility] Comment on above: Order Comment: Speci men Type: BLOOD SPECIMEN Ordering Facility: [facility] Address: [address] [place] [address] Performed By: #### 5 7021-8 #### [facility] CLIA [id number] [address] [place] Monocytes (Bld) [#/Vol] 1.19 10*3/uL High <0.87 [facility] Comment on above: Order Comment: Speci men Type: BLOOD SPECIMEN Ordering Facility: [facility] Address: [address] [place] [address] Performed By: #### 5 7021-8 #### [facility] CLIA [id number] [address] Monocytes/100 WBC (Bld) 14.5 % Normal [facility] Comment on above: Order Comment: Speci men Type: BLOOD SPECIMEN Ordering Facility: [facility] Address: [address] [place] [address] Performed By: #### 5 7021-8 #### [facility] CLIA [id number] [address] [place] Neutrophils (Bld) [#/Vol] 4.17 10*3/uL Normal 1.45-7.50 [facility] Comment on above: Order Comment: Speci men Type: BLOOD SPECIMEN Ordering Facility: [facility] Address: [address] [place] [address] Performed By: #### 5 7021-8 #### [facility] CLIA [id number] [address] [place] Neutrophils/100 WBC (Bld) 50.7 % Normal [facility] Comment on above: Order Comment: Speci men Type: BLOOD SPECIMEN Ordering Facility: [facility] Address: [address] [place] [address] Performed By: #### 5 7021-8 #### [facility] CLIA [id number] [address] [place] Nucleated RBC (Bld) [#/Vol] 10*3/uL Normal <0.01 [facility] Comment on above: Order Comment: Speci men Type: BLOOD SPECIMEN Ordering Facility: [facility] Address: [address] [place] [address] Performed By: #### 5 7021-8 #### [facility] CLIA [id number] [address] [place] Nucleated RBC/100 WBC (Bld) [Ratio] 0.0 /100 WBC Normal [facility] Comment on above: Order Comment: Speci men Type: BLOOD SPECIMEN Ordering Facility: [facility] Address: [address] [place] [address] Performed By: #### 5 7021-8 #### [facility] CLIA [id number] [address] [place] [address] [place] Platelet mean volume (Bld) [Entitic vol] 10.5 fL Normal 9.0-12.7 [facility] Comment on above: Order Comment: Speci men Type: BLOOD SPECIMEN Ordering Facility: [facility] Address: [address] [place] [address] Performed By: #### 5 7021-8 #### [facility] CLIA [id number] [address] [place] [address] [place] Platelets (Bld) [#/Vol] 168 10*3/uL Normal 150-400 [facility] Comment on above: Order Comment: Speci men Type: BLOOD SPECIMEN Ordering Facility: [facility] Address: [address] [place] [address] Performed By: #### 5 7021-8 #### [facility] CLIA [id number] [address] [place] RBC (Bld) [#/Vol] 2.88 10*6/uL Low 3.90-5.20 [facility] Comment on above: Order Comment: Speci men Type: BLOOD SPECIMEN Ordering Facility: [facility] Address: [address] [place] [address] Performed By: #### 5 7021-8 #### [facility] CLIA [id number] [address] [place] WBC (Bld) [#/Vol] 8.21 10*3/uL Normal 3.70-11.00 [facility] Comment on above: Order Comment: Speci men Type: BLOOD SPECIMEN Ordering Facility: [facility] Address: [address] [place] [address] Performed By: #### 5 7021-8 #### [facility] CLIA [id number] [address] CONSULTon 12-10-2024 CONSULT HNO ID: [id number] Author: BETSY HALL MD Service: Nephrology Author Type: Physician Type: Consults Filed: 12/10/2024 19:42 Note Text: INPATIENT INITIAL NEPHROLOGY CONSULT SERVICE DATE: 12/10/2024 SERVICE TIME: 7:30 PM REASON FOR CONSULT: MONIQUE/ CRS REQUESTING PHYSICIAN: Dr Tuttle PRIMARY CARE PHYSICIAN: Deysi Collazo APRN.GRAVEDIGGER CC: SOB and edema Subjective Ms. 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 Lua PACEMAKER 10/2019 PART. HYSTERECTOMY W/WO RMVL OVARIES/TUBES 1973 h/o cervical cancer ovaries remain PAST SURGICAL HISTORY OF 1996 Aortic valve repair, Dr. Apodaca PAST SURGICAL HISTORY OF 2001 [address] Beltrán, [facility] PAST SURGICAL HISTORY OF 2015 [...] red win (more content not included)... Normal [facility] Comprehensive metabolic 2000 panelon 12-10-2024 Albumin [Mass/Vol] 3.8 g/dL Low 3.9-4.9 [facility] Comment on above: Order Comment: Speci men Type: URINE SPECIMEN Ordering Facility: [facility] Address: [address] [place] [address] Performed By: #### L [id number] #### [facility] CLIA [id number] [address] [place] [address] [place] ALP [Catalytic activity/Vol] 139 U/L High 34-123 [facility] Comment on above: Order Comment: Speci men Type: URINE SPECIMEN Ordering Facility: [facility] Address: [address] [place] [address] Performed By: #### L [id number] #### [facility] CLIA [id number] [address] [place] [address] [place] ALT [Catalytic activity/Vol] 12 U/L Normal 7-38 [facility] Comment on above: Order Comment: Speci men Type: URINE SPECIMEN Ordering Facility: [facility] Address: [address] [place] [address] Performed By: #### L [id number] #### [facility] CLIA [id number] [address] [place] [address] [place] Anion gap [Moles/Vol] 13 mmol/L Normal 8-15 [facility] Comment on above: Order Comment: Speci men Type: URINE SPECIMEN Ordering Facility: [facility] Address: [address] [place] [address] Performed By: #### L [id number] #### [facility] CLIA [id number] [address] [place] [address] [place] AST [Catalytic activity/Vol] 27 U/L Normal 13-35 [facility] Comment on above: Order Comment: Speci men Type: URINE SPECIMEN Ordering Facility: [facility] Address: [address] [place] [address] Performed By: #### L [id number] #### [facility] CLIA [id number] [address] [place] [address] [place] Bilirubin [Mass/Vol] 0.8 mg/dL Normal 0.2-1.3 [facility] Comment on above: Order Comment: Speci men Type: URINE SPECIMEN Ordering Facility: [facility] Address: [address] [place] [address] Performed By: #### L [id number] #### [facility] CLIA [id number] [address] [place] [address] [place] Calcium [Mass/Vol] 9.0 mg/dL Normal 8.5-10.2 [facility] Comment on above: Order Comment: Speci men Type: URINE SPECIMEN Ordering Facility: [facility] Address: [address] [place] [address] Performed By: #### L [id number] #### [facility] CLIA [id number] [address] STATES OF [facility] Chloride [Moles/Vol] 98 mmol/L Normal 98-107 [facility] Comment on above: Order Comment: Speci men Type: URINE SPECIMEN Ordering Facility: [facility] Address: [address] [place] [address] Performed By: #### L [id number] #### [facility] CLIA [id number] [address] [place] [address] [place] CO2 [Moles/Vol] 20 mmol/L Low 22-30 [facility] Comment on above: Order Comment: Speci men Type: URINE SPECIMEN Ordering Facility: [facility] Address: [address] [place] [address] Performed By: #### L [id number] #### [facility] CLIA [id number] [address] [place] [address] [place] Creatinine [Mass/Vol] 1.90 mg/dL High 0.58-0.96 [facility] Comment on above: Order Comment: Speci men Type: URINE SPECIMEN Ordering Facility: [facility] Address: [address] [place] [address] Performed By: #### L [id number] #### [facility] CLIA [id number] [address] Creatinine and Glomerular filtration rate.predicted panel (S/P/Bld) 27 mL/min/1.73m??? Low >=60 [facility] Comment on above: Order Comment: Speci men Type: URINE SPECIMEN Ordering Facility: [facility] Address: [address] [place] [address] Result Comment: Mira mated Glomerular Filtration Rate [...] reflect actual GFR. Performed By: #### L [id number] #### [facility] CLIA [id number] [address] [place] [address] [place] Glucose [Mass/Vol] 140 mg/dL High 74-99 [facility] Comment on above: Order Comment: Speci men Type: URINE SPECIMEN Ordering Facility: [facility] Address: [address] [place] [address] Result Comment: The [place] [employer] (ADA) provides guidance for cutoff [...] Standards of Medical Care in Diabetes 2016, [place] [employer]. Diabetes Care. 2016.39(Suppl 1). Performed By: #### L [id number] #### [facility] CLIA [id number] [address] [place] [address] [place] Potassium [Moles/Vol] 4.2 mmol/L Normal 3.7-5.1 [facility] Comment on above: Order Comment: [facility] Type: URINE SPECIMEN Ordering Facility: [facility] Address: [address] [place] [address] Performed By: #### L [id number] #### [facility] CLIA [id number] [address] [place] [address] [place] Protein [Mass/Vol] 7.3 g/dL Normal 6.3-8.0 [facility] Comment on above: Order Comment: Speci men Type: URINE SPECIMEN Ordering Facility: [facility] Address: [address] [place] [address] Performed By: #### L [id number] #### [facility] CLIA [id number] [address] [place] [address] [place] Sodium [Moles/Vol] 131 mmol/L Low 136-144 [facility] Comment on above: Order Comment: Speci men Type: URINE SPECIMEN Ordering Facility: [facility] Address: [address] [place] [address] Performed By: #### L [id number] #### [facility] CLIA [id number] [address] [place] [address] [place] Urea nitrogen [Mass/Vol] 63 mg/dL High 7-21 [facility] Comment on above: Order Comment: Speci men Type: URINE SPECIMEN Ordering Facility: [facility] Address: [address] [place] [address] Performed By: #### L [id number] #### [facility] CLIA [id number] [address] ECG COMPLETEon 12-10-2024 ECG COMPLETE Ventricular Rate : 7 9 BPM QRS Duration : 118 ms Q-T Interval : 418 ms QTC Calculation(Bazett) : 479 ms Calculated R Everson : -30 degrees Calculated T Everson : 161 degrees ATRIAL FIBRILLATION WITH PREMATURE VENTRICULAR OR ABERRANTLY CONDUCTED COMPLEXES LEFT AXIS DEVIATION LEFT VENTRICULAR HYPERTROPHY WITH QRS WIDENING ( R in aVL , Landen product ) T WAVE ABNORMALITY, CONSIDER LATERAL ISCHEMIA ABNORMAL ECG No Stemi Confirmed by ANSON MANRIQUE DO ([id number]) on 12/10/2024 3:12:25 PM NAME : BERTA SANCHES PID : [id number] : 1945 Gender : Female Race : ORD : [id number] Procedure Date : Dec 10 2024 07:55:48 Edit Date : Dec 10 2024 15:12:31 Diagnosis: ATRIAL FIBRILLATION WITH PREMATURE VENTRICULAR OR ABERRANTLY CONDUCTED COMPLEXES LEFT AXIS DEVIATION LEFT VENTRICULAR HYPERTROPHY WITH QRS WIDENING ( R in aVL , Landen product ) T WAVE ABNORMALITY, CONSIDER LATERAL ISCHEMIA ABNORMAL ECG No Stemi Confirmed by ANSON MANRIQUE DO ([id number]) on 12/10/2024 3:12:25 PM Test Reason : Chest Pain Location : 1 : ER ED Overread By : ANSON MANRIQUE DO Edited By : ANSON MANRIQUE DO Referred By : , Acquired by : [id number], Normal [facility] ED NOTEon 12-10-2024 ED NOTE HNO ID: [id number] Author: ANNETTE, RODERICK, RN Service: ? 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 Lua PACEMAKER 10/2019 PART. HYSTERECTOMY W/WO RMVL OVARIES/TUBES 1973 h/o cervical cancer ovaries remain PAST SURGICAL HISTORY OF 1996 Aortic valve repair, Dr. Apodaca PAST SURGICAL HISTORY OF 2001 [address] Beltrán, [facility] PAST SURGICAL HISTORY OF 2015 [...] Weight H (more content not included)... Normal [facility] HIGH SENSITIVITY TROPONIN T (INITIAL)on 12-10-2024 Troponin T.cardiac High sensitivity method [Mass/Vol] 72 ng/L High <[address] [place] [address] Comment on above: Order Comment: Speci men Type: URINE SPECIMEN Ordering Facility: [facility] Address: [address] [place] [address] Performed By: #### L [id number] #### [facility] CLIA [id number] [address] HIGH SENSITIVITY TROPONIN T (SECOND)on 12-10-2024 Troponin T.cardiac High sensitivity method [Mass/Vol] 66 ng/L High <[address] [place] [address] Comment on above: Order Comment: Speci men Type: BLOOD SPECIMEN Ordering Facility: [facility] Address: [address] [place] [address] Performed By: #### 2 132-9, 2284-8 #### [facility] CLIA [id number] [address] HIGH SENSITIVITY TROPONIN T (THIRD) 3 HRS AFTER INITIALon 12-10-2024 Troponin T.cardiac High sensitivity method [Mass/Vol] 63 ng/L High <[address] [place] [address] Comment on above: Order Comment: Speci men Type: BLOOD SPECIMEN Ordering Facility: [facility] Address: [address] [place] [address] Performed By: #### 2 132-9, 2284-8 #### [facility] CLIA [id number] [address] [place] HISTORY PHYSICALon HISTORY PHYSICAL HNO ID: [id number] Author: JUAN DIEGO KNOWLES MD Service: Hospital Medicine Author Type: Physician Type: H&P Filed: 12/10/2024 13:50 Note Text: HISTORY AND PHYSICAL EXAMINATION PRIMARY CARE PHYSICIAN: Deysi Collazo APRN.GRAVEDIGGER HPI: 79 yo woman with hx of 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 Lua PACEMAKER 10/2019 PART. HYSTERECTOMY W/WO RMVL OVARIES/TUBES 1974 h/o cervical cancer ovaries remain PAST SURGICAL HISTORY OF 1996 Aortic valve repair, Dr. Apodaca PAST SURGICAL HISTORY OF 2001 [address] Beltrán, [facility] PAST SURGICAL HISTORY OF 2016 [...] progressive SO (more content not included)... Normal [facility] Magnesium [facility] 12-10 Magnesium [Mass/Vol] 1.9 mg/dL Normal 1.7-2.3 [facility] Comment on above: Order Comment: Speci men Type: URINE SPECIMEN Ordering Facility: [facility] Address: [address] [place] [address] Performed By: #### L [id number] #### [facility] CLIA [id number] [address] [place] NT-proBNP [facility] 12-10 Natriuretic peptide.B prohormone N-Terminal [Mass/Vol] 08075 pg/mL High <450 [facility] Comment on above: Order Comment: Speci men Type: URINE SPECIMEN Ordering Facility: [facility] Address: [address] [place] [address] Performed By: #### L [id number] #### [facility] CLIA [id number] [address] [place] XR CHEST 1V [...] lungs. Cardiomegaly/enlargeme nt of the cardiac silhouette. Classroom Instructor: PSCMike Transcribe Date/Time: Dec 10 2024 8:28A Dictated by : KIERSTEN MONTENEGRO MD This examination was interpreted and the report reviewed and electronically signed by: KIERSTEN MONTENEGRO MD on Dec 10 2024 8:31AM EST [id number] Normal [facility] Basic metabolic 2000 panelon 12-01-2024 Anion gap [Moles/Vol] 14 mmol/L Normal 8-15 [facility] Comment on above: Order Comment: Speci men Type: BLOOD SPECIMEN Ordering Facility: [facility] Address: [address] [place] [address] Performed By: #### 2 4331-1 #### [facility] CLIA [id number] [address] [place] [address] [place] [facility] [id number] [address] [place] [address] [place] #### 93288-4 #### [facility] CLIA [id number] [address] [place] [address] [place] Calcium [Mass/Vol] 9.5 mg/dL Normal 8.5-10.2 [facility] Comment on above: Order Comment: Speci men Type: BLOOD SPECIMEN Ordering Facility: [facility] Address: [address] [place] [address] Performed By: #### 2 4331-1 #### [facility] CLIA [id number] [address] [place] [address] [place] [facility] [id number] [address] [place] [address] [place] #### 53648-5 #### [facility] CLIA [id number] [address] [place] [address] [place] Chloride [Moles/Vol] 97 mmol/L Low 98-107 [facility] Comment on above: Order Comment: Speci men Type: BLOOD SPECIMEN Ordering Facility: [facility] Address: [address] [place] [address] Performed By: #### 2 4331-1 #### [facility] CLIA [id number] [address] [place] [address] [place] [facility] CLIA [id number] [address] [place] [address] [place] #### 66747-8 #### [facility] CLIA [id number] [address] [place] [address] [place] CO2 [Moles/Vol] 22 mmol/L Normal 22-30 [facility] Comment on above: Order Comment: Speci men Type: BLOOD SPECIMEN Ordering Facility: [facility] Address: [address] [place] [address] Performed By: #### 2 4331-1 #### [facility] CLIA [id number] [address] [place] [address] [place] [facility] CLIA [id number] [address] [place] [address] [place] #### 55921-5 #### [facility] CLIA [id number] [address] [place] [address] [place] Creatinine [Mass/Vol] 1.79 mg/dL High 0.58-0.96 [facility] Comment on above: Order Comment: Speci men Type: BLOOD SPECIMEN Ordering Facility: [facility] Address: [address] [place] [address] Performed By: #### 2 4331-1 #### [facility] CLIA [id number] [address] [place] [address] [place] [facility] CLIA [id number] [address] [place] [address] [place] #### 19387-1 #### [facility] CLIA [id number] [address] [place] [address] [place] Creatinine and Glomerular filtration rate.predicted panel (S/P/Bld) 29 mL/min/1.73m??? Low >=60 [facility] Comment on above: Order Comment: Speci men Type: BLOOD SPECIMEN Ordering Facility: [facility] Address: [address] [place] [address] Result Comment: Mira mated Glomerular Filtration Rate [...] GFR. Performed By: #### 2 4331-1 #### [facility] CLIA [id number] [address] [place] [address] [place] [facility] CLIA [id number] [address] [place] [address] [place] #### 82908-1 #### [facility] CLIA [id number] [address] [place] [address] [place] Glucose [Mass/Vol] 151 mg/dL High 74-99 [facility] Comment on above: Order Comment: Speci men Type: BLOOD SPECIMEN Ordering Facility: [facility] Address: [address] [place] [address] Result Comment: The [place] Diabetes Association (ADA) provides guidance for cutoff [...] Standards of Medical Care in Diabetes 2016, [place] [employer]. Diabetes Care. 2016.39(Suppl 1). Performed By: #### 2 4331-1 #### [facility] CLIA [id number] [address] [place] [address] [place] [facility] [id number] [place] [address] [place] #### 87594-8 #### [facility] CLIA [id number] [address] [place] [address] [place] Potassium [Moles/Vol] 4.2 mmol/L Normal 3.7-5.1 [facility] Comment on above: Order Comment: Speci men Type: BLOOD SPECIMEN Ordering Facility: [facility] Address: [address] [place] [address] Performed By: #### 2 4331-1 #### [facility] CLIA [id number] [address] [place] [address] [place] [facility] CLIA [id number] [address] [place] [address] [place] #### 33019-9 #### [facility] CLIA [id number] [address] [place] [address] [place] Sodium [Moles/Vol] 133 mmol/L Low 136-144 [facility] Comment on above: Order Comment: Speci men Type: BLOOD SPECIMEN Ordering Facility: [facility] Address: [address] [id number] Performed By: #### 2 4331-1 #### [facility] CLIA [id number] [address] [place] [address] [place] [facility] CLIA [id number] [address] [place] [address] [place] #### 68681-8 #### [facility] CLIA [id number] [address] [place] [address] [place] Urea nitrogen [Mass/Vol] 37 mg/dL High 7-21 [facility] Comment on above: Order Comment: Speci men Type: BLOOD SPECIMEN Ordering Facility: [facility] Address: [address] [place] [address] Performed By: #### 2 4331-1 #### [facility] CLIA [id number] [address] [place] [address] [place] [facility] CLIA [id number] [address] [place] [address] [place] #### 31513-6 #### [facility] CLIA [id number] [address] [place] [address] [place] NT-proBNP [facility] 12-01 Natriuretic peptide.B prohormone N-Terminal [Mass/Vol] 63202 pg/mL High <450 [facility] Comment on above: Order Comment: Speci men Type: BLOOD SPECIMEN Ordering Facility: [facility] Address: [address] [place], [place] [address] Performed By: #### 3 3762-6 #### [facility] CLIA [id number] [address] [place] [address] [place] Basic metabolic 2000 panelon 11-20-2024 Anion gap [Moles/Vol] 19 mmol/L High 8-15 [facility] Comment on above: Order Comment: Speci men Type: BLOOD SPECIMEN Ordering Facility: [facility] Address: [address] [place] [address] Performed By: #### 3 3762-6 #### [facility] CLIA [id number] [address] [place], [place] [address] [place] Calcium [Mass/Vol] 9.5 mg/dL Normal 8.5-10.2 [facility] Comment on above: Order Comment: Speci men Type: BLOOD SPECIMEN Ordering Facility: [facility] Address: [address] [place] [address] Performed By: #### 3 3762-6 #### [facility] CLIA [id number] [address] [place] [address] [place] Chloride [Moles/Vol] 98 mmol/L Normal 98-107 [facility] Comment on above: Order Comment: Speci men Type: BLOOD SPECIMEN Ordering Facility: [facility] Address: [address] [place] [address] Performed By: #### 3 3762-6 #### [facility] CLIA [id number] [address] [place] [address] [place] CO2 [Moles/Vol] 18 mmol/L Low 22-30 [facility] Comment on above: Order Comment: Speci men Type: BLOOD SPECIMEN Ordering Facility: [facility] Address: [address] [place], [place] [address] Performed By: #### 3 3762-6 #### [facility] CLIA [id number] [address] [place] [address] [place] Creatinine [Mass/Vol] 1.70 mg/dL High 0.58-0.96 [facility] Comment on above: Order Comment: Speci men Type: BLOOD SPECIMEN Ordering Facility: [facility] Address: [address] [place] [address] Performed By: #### 3 3762-6 #### [facility] CLIA [id number] [address] [place] [address] [place] Creatinine and Glomerular filtration rate.predicted panel (S/P/Bld) 30 mL/min/1.73m??? Low >=60 [facility] Comment on above: Order Comment: Annie ricci Type: BLOOD SPECIMEN Ordering Facility: [facility] Address: [address] [place] [address] Result Comment: Mira mated Glomerular Filtration Rate [...] GFR. Performed By: #### 3 3762-6 #### [facility] CLIA [id number] [address] [place] [address] [place] Glucose [Mass/Vol] 150 mg/dL High 74-99 [facility] Comment on above: Order Comment: Annie ricci Type: BLOOD SPECIMEN Ordering Facility: [facility] Address: [address] [place] [address] Result Comment: The [place] Diabetes Association (ADA) provides guidance for cutoff [...] Standards of Medical Care in Diabetes 2016, [place] [employer] Association. Diabetes Care. 2016.39(Suppl 1). Performed By: #### 3 3762-6 #### [facility] CLIA [id number] [address] [id number] [address] [place] Potassium [Moles/Vol] 4.6 mmol/L Normal 3.7-5.1 [facility] Comment on above: Order Comment: Speci men Type: BLOOD SPECIMEN Ordering Facility: [facility] Address: [address] [place] [address] Performed By: #### 3 3762-6 #### [facility] CLIA [id number] [address] [place] [address] [place] Sodium [Moles/Vol] 135 mmol/L Low 136-144 [facility] Comment on above: Order Comment: Speci men Type: BLOOD SPECIMEN Ordering Facility: [facility] Address: [address] [place] [address] Performed By: #### 3 3762-6 #### [facility] CLIA [id number] [address] [place] [address] [place] Urea nitrogen [Mass/Vol] 37 mg/dL High 7-21 [facility] Comment on above: Order Comment: Speci men Type: BLOOD SPECIMEN Ordering Facility: [facility] Address: [address] [place] [address] Performed By: #### 3 3762-6 #### [facility] CLIA [id number] [address] [place] [address] [place] CNOVon 11-20-2024 CNOV Office Visit (JOHNNY ) BERTA SANCHES ([id number]) 1945 [facility] Date Time Provider Department 11/20/24 8:00 AM CRALA BURDICK During your visit today, we recorded the following information about you: Pulse Respiration Blood pressure Weight 84/minute 12/minute 154/62 65.2 kg Height 1.575 m Carla Burdick MD 11/20/2024 8:50 AM Signed [facility] CARDIOLOGY Cardiology ([facility]) [address] [facility] [id number] OUTPATIENT VISIT DATE PRIMARY CARE PHYSICIAN: Doreen Le [address] [place] [address] HISTORY OF PRESENT ILLNESS: Ms. 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 Lua PACEMAKER 10/2019 PART. HYSTERECTOMY W/WO RMVL OVARIES/TUBES 1974 h/o cervical cancer ovaries remain PAST SURGICAL HISTORY OF 1996 Aortic valve repair, Dr. Apodaca PAST SURGICAL HISTORY OF 2001 [address] Beltrán, [facility] PAST SURGICAL HISTORY OF 2015 [...] not included)... Normal [facility] NT-proBNP [facility] 11-20 Natriuretic peptide.B prohormone N-Terminal [Mass/Vol] 32450 pg/mL High <450 [facility] Comment on above: Order Comment: Speci men Type: BLOOD SPECIMEN Ordering Facility: [facility] Address: [address] [place] [address] Performed By: #### 3 3762-6 #### [facility] CLIA [id number] [address] [place] [address] [facility] CNPNon 11-14-2024 CNPN Telephone (CARDWS) BERTA SANCHES ([id number]) 1945 [facility] Date Time Provider Department 11/14/24 [...] on Wednesday when I am there at [place]. 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 Normal [facility] Basic metabolic 2000 panelon 11-13-2024 Anion gap [Moles/Vol] 11 mmol/L Normal 8-15 [facility] Comment on above: Order Comment: Speci men Type: BLOOD SPECIMEN Ordering Facility: [facility] Address: [address] [place] [address] Performed By: #### 2 4331-1 #### [facility] CLIA [id number] [address] [place] [address] [place] [facility] [id number] [address] [place] [address] [place] #### 00860-9 #### [facility] CLIA [id number] [address] [place] [address] [place] Calcium [Mass/Vol] 9.3 mg/dL Normal 8.5-10.2 [facility] Comment on above: Order Comment: Speci men Type: BLOOD SPECIMEN Ordering Facility: [facility] Address: [address] [place] [address] Performed By: #### 2 4331-1 #### [facility] CLIA [id number] [address] [place] [address] [place] [facility] [id number] [address] [place] [address] [place] #### 44792-7 #### [facility] CLIA [id number] [address] [place] [address] [place] Chloride [Moles/Vol] 98 mmol/L Normal 98-107 [facility] Comment on above: Order Comment: Speci men Type: BLOOD SPECIMEN Ordering Facility: [facility] Address: [address] [id number] Performed By: #### 2 4331-1 #### [facility] CLIA [id number] [address] [place] [address] [place] [facility] CLIA [id number] [address] [place] [address] [place] #### 71798-5 #### [facility] CLIA [id number] [address] [place] [address] [place] CO2 [Moles/Vol] 26 mmol/L Normal 22-30 [facility] Comment on above: Order Comment: Speci men Type: BLOOD SPECIMEN Ordering Facility: [facility] Address: [address] [id number] Performed By: #### 2 4331-1 #### [facility] CLIA [id number] [address] [place] [address] [place] [facility] CLIA [id number] [address] [place] [address] [place] #### 96767-4 #### [facility] CLIA [id number] [address] [place] [address] [place] Creatinine [Mass/Vol] 1.82 mg/dL High 0.58-0.96 [facility] Comment on above: Order Comment: Speci men Type: BLOOD SPECIMEN Ordering Facility: [facility] Address: [address] [place] [address] Performed By: #### 2 4331-1 #### [facility] CLIA [id number] [address] [place], [place] [address] [place] [facility] CLIA [id number] [address] [place] [address] [place] #### 69680-4 #### [facility] CLIA [id number] [address] [place] [address] [place] Creatinine and Glomerular filtration rate.predicted panel (S/P/Bld) 28 mL/min/1.73m??? Low >=60 [facility] Comment on above: Order Comment: Annie ricci Type: BLOOD SPECIMEN Ordering Facility: [facility] Address: [address] [place] [address] Result Comment: Mira mated Glomerular Filtration Rate [...] GFR. Performed By: #### 2 4331-1 #### [facility] CLIA [id number] [address] [place] [address] [place] [facility] CLIA [id number] [address] [place] [address] [place] #### 43670-9 #### [facility] CLIA [id number] [address] [place] [address] [place] Glucose [Mass/Vol] 127 mg/dL High 74-99 [facility] Comment on above: Order Comment: Annie ricci Type: BLOOD SPECIMEN Ordering Facility: [facility] Address: [address] [place] [address] Result Comment: The [place] Diabetes Association (ADA) provides guidance for cutoff [...] Standards of Medical Care in Diabetes 2016, [place] [employer]. Diabetes Care. 2016.39(Suppl 1). Performed By: #### 2 4331-1 #### [facility] CLIA [id number] [address] [place] [address] [place] [facility] CLIA [id number] [address] [place] [address] [place] #### 25389-5 #### [facility] CLIA [id number] [address] [place] [address] [place] Potassium [Moles/Vol] 4.0 mmol/L Normal 3.7-5.1 [facility] Comment on above: Order Comment: Speci men Type: BLOOD SPECIMEN Ordering Facility: [facility] Address: [address] [place] [address] Performed By: #### 2 4331-1 #### [facility] CLIA [id number] [address] [place] [address] [place] [facility] [id number] [address] [place] [address] [place] #### 86552-2 #### [facility] CLIA [id number] [address] [place] [address] [place] Sodium [Moles/Vol] 135 mmol/L Low 136-144 [facility] Comment on above: Order Comment: Speci men Type: BLOOD SPECIMEN Ordering Facility: [facility] Address: [address] [place] [address] Performed By: #### 2 4331-1 #### [facility] CLIA [id number] [address] [place] [address] [place] [facility] [id number] [address] [place] [address] [place] #### 10452-9 #### [facility] CLIA [id number] [address] [place] [address] [place] Urea nitrogen [Mass/Vol] 41 mg/dL High 7-21 [facility] Comment on above: Order Comment: Speci men Type: BLOOD SPECIMEN Ordering Facility: [facility] Address: [address] [place] [address] Performed By: #### 2 4331-1 #### [facility] CLIA [id number] [address] [place] [address] [place] [facility] [id number] [address] [place] [address] [place] #### 78624-7 #### [facility] CLIA [id number] [address] [place] [address] [place] NT-proBNP [facility] 11-13 Natriuretic peptide.B prohormone N-Terminal [Mass/Vol] 27805 pg/mL High <450 [facility] Comment on above: Order Comment: Speci men Type: BLOOD SPECIMEN Ordering Facility: [facility] Address: [address] [place] [address] Performed By: #### 2 4331-1 #### [facility] CLIA [id number] [address] [place] [address] [place] [facility] CLIA [id number] [address] [place] [address] [place] #### 52954-8 #### [facility] CLIA [id number] [address] [place] [address] [place] CNOVon 11-06-2024 CNOV Office Visit (CARDWS ) BERTA SANCHES ([id number]) 1945 [place] Date Time Provider Department 11/06/24 2:40 PM CARLA BURDICK During your visit today, we recorded the following information about you: Pulse Respiration Blood pressure Weight 68/minute 12/minute 134/54 68.9 kg Height 1.575 m Carla Burdick MD 11/06/2024 5:01 PM Signed [facility] SE[facility]IONAL CARDIOLOGY Cardiology ([facility]) [address] [facility] [id number] OUTPATIENT VISIT DATE 11/06/2024 PRIMARY CARE PHYSICIAN: Doreen Le [address] [place] [address] HISTORY OF PRESENT ILLNESS: Ms. Sanches is [...] admitted to the hospital while vacationing in [place]. She underwent SMA stent placement. This was followed by a long admission for decompensated congestive heart failure in the setting of the renal insufficiency. 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 Lua PACEMAKER 10/2019 PART. HYSTERECTOMY W/WO RMVL OVARIES/TUBES 1973 h/o cervical cancer ovaries remain PAST SURGICAL HISTORY OF 1996 Aortic valve repair, Dr. Apodaca PAST SURGICAL HISTORY OF 2001 [address] Beltrán, [facility] PAST SURGICAL HISTORY OF 2015 [...] Allergen Reactions (more content not included)... Normal [facility] Basic metabolic 2000 panelon 11-03-2024 Anion gap [Moles/Vol] 11 mmol/L 8 - 15 mmol/L [facility] Calcium [Mass/Vol] 9.1 mg/dL 8.5 - 10. 2 mg/dL [facility] Chloride [Moles/Vol] 84 mmol/L Low 98 - 10 7 mmol/L [facility] CO2 [Moles/Vol] 27 mmol/L 22 - 30 mmol/L [facility] Creatinine [Mass/Vol] 2.36 mg/dL High 0.58 - 0.96 mg/dL [facility] GFR/1.73 sq M.predicted among non-blacks MDRD (S/P/Bld) [Vol rate/Area] 20 mL/min/{1.73_m2} Low - PINF [facility] Comment on above: Estimated Glomerular Filtration Rate [...] High 74 - 99 mg/dL [facility] Comment on above: The [place] Diabete s Association (ADA) provides guidance for [...] Standards of Medical Care in Diabetes 2016, [place] Diabetes Association. Diabetes Care. 2016.39(Suppl 1). Interpretation and review of laboratory results Abnormal [facility] Potassium [Moles/Vol] 4.3 mmol/L 3.7 - 5.1 mmol/L [facility] Sodium [Moles/Vol] 122 mmol/L Low 136 - 144 mmol/L [facility] Urea nitrogen [Mass/Vol] 57 mg/dL High 7 - 21 mg/dL [facility] Anion gap [Moles/Vol] 11 mmol/L Normal 8-15 [facility] Comment on above: Order Comment: Annie ricci Type: BLOOD SPECIMEN Ordering Facility: [facility] Address: [address] [place] [address] Performed By: #### 2 132-9, 2283-8 #### [facility] CLIA [id number] [address] [place] [address] [place] Calcium [Mass/Vol] 9.1 mg/dL Normal 8.5-10.2 [facility] Comment on above: Order Comment: Annie ricci Type: BLOOD SPECIMEN Ordering Facility: [facility] Address: [address] [place] [address] Performed By: #### 2 132-9, 2283-8 #### [facility] CLIA [id number] [address] [place] [address] [place] Chloride [Moles/Vol] 84 mmol/L Low 98-107 [facility] Comment on above: Order Comment: Annie ricci Type: BLOOD SPECIMEN Ordering Facility: [facility] Address: [address] [place] [address] Performed By: #### 2 132-9, 2283-8 #### [facility] CLIA [id number] [address] [place] [address] [place] CO2 [Moles/Vol] 27 mmol/L Normal 22-30 [facility] Comment on above: Order Comment: Annie ricci Type: BLOOD SPECIMEN Ordering Facility: [facility] Address: [address] [place] [address] Performed By: #### 2 132-9, 2283-8 #### [facility] CLIA [id number] [address] [place] [address] [place] Creatinine [Mass/Vol] 2.36 mg/dL High 0.58-0.96 [facility] Comment on above: Order Comment: Annie ricci Type: BLOOD SPECIMEN Ordering Facility: [facility] Address: [address] [place] [address] Performed By: #### 2 132-9, 2283-8 #### [facility] CLIA [id number] [address] Creatinine and Glomerular filtration rate.predicted panel (S/P/Bld) 20 mL/min/1.73m??? Low >=60 [facility] Comment on above: Order Comment: Annie ricci Type: BLOOD SPECIMEN Ordering Facility: [facility] Address: [address] [place] [address] Result Comment: Mira mated Glomerular Filtration Rate [...] By: #### 2 132-9, 2283-8 #### [facility] CLIA [id number] [address] [place] Glucose [Mass/Vol] 114 mg/dL High 74-99 [facility] Comment on above: Order Comment: Annie ricci Type: BLOOD SPECIMEN Ordering Facility: [facility] Address: [address] [place] [address] Result Comment: The [place] Diabetes Association (ADA) provides guidance for cutoff [...] Standards of Medical Care in Diabetes 2016, [place] [employer]. Diabetes Care. 2016.39(Suppl 1). Performed By: #### 2 132-9, 2283-8 #### [facility] CLIA [id number] [address] Potassium [Moles/Vol] 4.3 mmol/L Normal 3.7-5.1 [facility] Comment on above: Order Comment: Annie ricci Type: BLOOD SPECIMEN Ordering Facility: [facility] Address: [address] [place] [address] Performed By: #### 2 132-9, 2283-8 #### [facility] CLIA [id number] [address] Sodium [Moles/Vol] 122 mmol/L Low 136-144 [facility] Comment on above: Order Comment: Annie ricci Type: BLOOD SPECIMEN Ordering Facility: [facility] Address: [address] [place] [address] Performed By: #### 2 132-9, 2283-8 #### [facility] CLIA [id number] [address] Urea nitrogen [Mass/Vol] 57 mg/dL High 7-21 [facility] Comment on above: Order Comment: Annie ricci Type: BLOOD SPECIMEN Ordering Facility: [facility] Address: [address] [place] [address] Performed By: #### 2 132-9, 2283-8 #### [facility] CLIA [id number] [address] OF [facility] CNOVon 11-03-2024 CNOV Office Visit ([facility] ) BERTA SANCHES ([id number]) 1945 F [place] Date Time Provider Department 11/03/24 9:00 AM ALBIN GU [facility] During your visit today, we [...] or concern, you can call me at [phone]. Albin Gu APRN.CNP 11/03/2024 10:28 AM Signed [facility] [place] [facility] Heart Failure [facility] OUTPATIENT VISIT [...] and was worried about traveling home to [place] in a few days. Discussed with her taking lasix as it was prescribed. As her spironolactone was stopped, did advise patient restart this at 25 mg once a day for four days only. She was instructed to call office in a week to review symptoms. On 10/15, patient presented back to [facility] for gastrointestinal bleed. She had a [...] and entresto. The patient wished to leave [place] so she could return to [place]. Cardiology and Pulmonary agreed with discharge. Today, the patient reports feeling okay. Since she was hospitalized in [place], she has not felt that well. Feels very tired. Denies shortness of breath. Was seen by her PCP on Wednesday who suggested patient be admitted due to significant worsening in kidney function however, the patient and declined admission as she just returned home the day before. States she was started on bumex drip and then received oral bumex while in [place] and noted a worsening in kidney function. [...] roasted chicken, asparagus and salad. While in [place], she was very conscious about her diet. She weighed every day. She feels after the first hospitalization, she gained approx 20 lbs which she did call and discuss this with this HF OPTICAL MANAGER. Wearing lidocaine patch over site to right side of neck as she mentions havi (more content not included)... Normal [facility] 11-03-2024 [facility] Telephone ([facility]) BERTA SANCHES ([id number]) 1945 [facility] Date Time Provider Department 11/03/24 ALBIN GU [facility] During your visit today, we recorded the following information about you: Albin Gu APRN.GRAVEDIGGER 11/03/2024 12:49 PM Signed Called patient to [...] agree with plan of care. 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 Normal [facility] CBC W Auto Differential pane l (Bld)on 10-31-2024 Basophils (Bld) [#/Vol] 0.06 10*3/uL [facility] Basophils/100 WBC (Bld) 1 % C [facility] Differential cell count method Nom (Bld) Auto [facility] Eosinophils (Bld) [#/Vol] 0.13 10*3/uL [facility] Eosinophils/100 WBC (Bld) 2.1 % [facility] Erythrocyte distribution width (RBC) [Ratio] 16.8 % High 11.5 - 15.0 % [facility] Hematocrit (Bld) [Volume fraction] 26.3 % Low 36.0 - 46.0 % [facility] Hemoglobin (Bld) [Mass/Vol] 8.7 g/dL Low 11.5 - 15.5 g/dL [facility] Immature granulocytes (Bld) [#/Vol] 0.04 10*3/uL [facility] Immature granulocytes/100 WBC (Bld) 0.6 % [facility] Interpretation and review of laboratory results Abnormal [facility] Lymphocytes (Bld) [#/Vol] 1.29 10*3/uL [facility] Lymphocytes/100 WBC (Bld) 20.6 % [facility] MCH (RBC) [Entitic mass] 31.6 pg 26.0 - 34.0 pg [facility] MCHC (RBC) [Mass/Vol] 33.1 g/dL 30.5 - 36.0 g/dL [facility] MCV (RBC) [Entitic vol] 95.6 fL 80.0 - 100.0 fL [facility] Monocytes (Bld) [#/Vol] 0.82 10*3/uL [facility] Monocytes/100 WBC (Bld) 13.1 % [facility] Neutrophils (Bld) [#/Vol] 3.92 10*3/uL [facility] Neutrophils/100 WBC (Bld) 62.6 % [facility] Nucleated RBC (Bld) [#/Vol] NINF [facility] Nucleated RBC/100 WBC (Bld) [Ratio] 0 % /100 WBC [facility] Platelet mean volume (Bld) [Entitic vol] 9.5 fL 9.0 - 12.7 fL [facility] Platelets (Bld) [#/Vol] 202 10*3/uL [facility] RBC (Bld) [#/Vol] 2.75 10*6/uL Low 3.90 - 5.2 0 m/uL [facility] WBC (Bld) [#/Vol] 6.26 10*3/uL [facility] Basophils (Bld) [#/Vol] 0.06 10*3/uL Normal <0.11 [facility] Comment on above: Order Comment: Speci men Type: BLOOD SPECIMEN Ordering Facility: [facility] Address: [address] [place] [address] Performed By: #### 2 4331-1 #### [facility] CLIA [id number] [address] [place] [address] [place] [facility] CLIA [id number] [address] [place] [address] [place] #### 69801-1 #### [facility] CLIA [id number] [address] [place] [address] [place] Basophils/100 WBC (Bld) 1.0 % [facility] Comment on above: Order Comment: Speci men Type: BLOOD SPECIMEN Ordering Facility: [facility] Address: [address] [place] [address] Performed By: #### 2 4331-1 #### [facility] CLIA [id number] [address] [place] [address] [place] [facility] CLIA [id number] [address] [place] [address] [place] #### 08851-8 #### [facility] CLIA [id number] [address] [place] [address] [place] Differential cell count method Nom (Bld) Auto Normal [facility] Comment on above: Order Comment: Speci men Type: BLOOD SPECIMEN Ordering Facility: [facility] Address: [address] [place] [address] Performed By: #### 2 4331-1 #### [facility] CLIA [id number] [address] [place] [address] [place] [facility] CLIA [id number] [address] [place] [address] [place] #### 71252-5 #### [facility] CLIA [id number] [address] [place] [address] [place] Eosinophils (Bld) [#/Vol] 0.13 10*3/uL Normal <0.46 [facility] Comment on above: Order Comment: Speci men Type: BLOOD SPECIMEN Ordering Facility: [facility] Address: [address] [place] [address] Performed By: #### 2 4331-1 #### [facility] CLIA [id number] [address] [place] [address] [place] [facility] CLIA [id number] [address] [place] [address] [place] #### 05030-0 #### [facility] CLIA [id number] [address] [place] [address] [place] Eosinophils/100 WBC (Bld) 2.1 % Normal [facility] Comment on above: Order Comment: Speci men Type: BLOOD SPECIMEN Ordering Facility: [facility] Address: [address] [place], [place] [address] Performed By: #### 2 4331-1 #### [facility] CLIA [id number] [address] [place] [address] [place] [facility] CLIA [id number] [address] [place] [address] [place] #### 06346-6 #### [facility] CLIA [id number] [address] [place] [address] [place] Erythrocyte distribution width (RBC) [Ratio] 16.8 % High 11.5-15.0 [facility] Comment on above: Order Comment: Speci men Type: BLOOD SPECIMEN Ordering Facility: [facility] Address: [address] [place] [address] Performed By: #### 2 4331-1 #### [facility] CLIA [id number] [address] [place] [address] [place] [facility] [id number] [address] [place] [address] [place] #### 19369-8 #### [facility] CLIA [id number] [address] [place] [address] [place] Hematocrit (Bld) [Volume fraction] 26.3 % Low 36.0-46.0 [facility] Comment on above: Order Comment: Speci men Type: BLOOD SPECIMEN Ordering Facility: [facility] Address: [address] [place], [place] [address] Performed By: #### 2 4331-1 #### [facility] CLIA [id number] [address] [place] [address] [place] [facility] [id number] [address] [place] [address] [place] #### 14066-1 #### [facility] CLIA [id number] [address] [place], [place] [address] [place] Hemoglobin (Bld) [Mass/Vol] 8.7 g/dL Low 11.5-15.5 [facility] Comment on above: Order Comment: Speci men Type: BLOOD SPECIMEN Ordering Facility: [facility] Address: [address] [place] [address] Performed By: #### 2 4331-1 #### [facility] CLIA [id number] [address] [place] [address] [place] [facility] CLIA [id number] [address] [place] [address] [place] #### 65431-8 #### [facility] CLIA [id number] [address] [place] [address] [place] Immature granulocytes (Bld) [#/Vol] 0.04 10*3/uL Normal <0.10 [facility] Comment on above: Order Comment: Speci men Type: BLOOD SPECIMEN Ordering Facility: [facility] Address: [address] [place] [address] Performed By: #### 2 4331-1 #### [facility] CLIA [id number] [address] [place] [address] [place] [facility] CLIA [id number] [address] [place] [address] [place] #### 50509-2 #### [facility] CLIA [id number] [address] [place] [address] [place] Immature granulocytes/100 WBC (Bld) 0.6 % Normal [facility] Comment on above: Order Comment: Speci men Type: BLOOD SPECIMEN Ordering Facility: [facility] Address: [address] [place] [address] Performed By: #### 2 4331-1 #### [facility] CLIA [id number] [address] [place] [address] [place] [facility] CLIA [id number] [address] [place] [address] [place] #### 09118-1 #### [facility] CLIA [id number] [address] [place] [address] [place] Lymphocytes (Bld) [#/Vol] 1.29 10*3/uL Normal 1.00-4.00 [facility] Comment on above: Order Comment: Speci men Type: BLOOD SPECIMEN Ordering Facility: [facility] Address: [address] [place] [address] Performed By: #### 2 4331-1 #### [facility] CLIA [id number] [address] [place] [address] [place] [facility] [id number] [address] [place] [address] [place] #### 78960-5 #### [facility] CLIA [id number] [address] [place] [address] [place] Lymphocytes/100 WBC (Bld) 20.6 % Normal [facility] Comment on above: Order Comment: Speci men Type: BLOOD SPECIMEN Ordering Facility: [facility] Address: [address] [place] [address] Performed By: #### 2 4331-1 #### [facility] CLIA [id number] [address] [place] [address] [place] [facility] [id number] [address] [place] [address] [place] #### 61809-0 #### [facility] CLIA [id number] [address] [place] [address] [place] MCH (RBC) [Entitic mass] 31.6 pg Normal 26.0-34.0 [facility] Comment on above: Order Comment: Speci men Type: BLOOD SPECIMEN Ordering Facility: [facility] Address: [address] [place] [id number] Performed By: #### 2 4331-1 #### [facility] CLIA [id number] [facility] [place] [address] [place] [facility] CLIA [id number] [address] [place] [address] [place] #### 48807-6 #### [facility] CLIA [id number] [address] [place] [address] [place] MCHC (RBC) [Mass/Vol] 33.1 g/dL Normal 30.5-36.0 [facility] Comment on above: Order Comment: Speci men Type: BLOOD SPECIMEN Ordering Facility: [facility] Address: [address] [place] [address] Performed By: #### 2 4331-1 #### [facility] CLIA [id number] [address] [place] [address] [place] [facility] CLIA [id number] [address] [place] [address] [place] #### 02940-2 #### [facility] CLIA [id number] [address] [place] [address] [place] MCV (RBC) [Entitic vol] 95.6 fL Normal 80.0-100.0 [facility] Comment on above: Order Comment: Speci men Type: BLOOD SPECIMEN Ordering Facility: [facility] Address: [address] [place] [id number] Performed By: #### 2 4331-1 #### [facility] CLIA [id number] [address] [place] [address] [place] [facility] CLIA [id number] [address] [place] [address] [place] #### 30159-9 #### [facility] CLIA [id number] [address] [place] [id number] [place] Monocytes (Bld) [#/Vol] 0.82 10*3/uL Normal <0.87 [facility] Comment on above: Order Comment: Speci men Type: BLOOD SPECIMEN Ordering Facility: [facility] Address: [address] [place], [place] [address] Performed By: #### 2 4331-1 #### [facility] CLIA [id number] [address] [place] [address] [place] [facility] CLIA [id number] [place] [address] [place] #### 04181-4 #### [facility] CLIA [id number] [address] [place] [address] [place] Monocytes/100 WBC (Bld) 13.1 % Normal [facility] Comment on above: Order Comment: Speci men Type: BLOOD SPECIMEN Ordering Facility: [facility] Address: [address] [place], [place] [address] Performed By: #### 2 4331-1 #### [facility] CLIA [id number] [address] [place] [address] [place] [facility] [id number] [address] [place] [address] [place] #### 89212-4 #### [facility] CLIA [id number] [address] [place], [place] [address] [place] Neutrophils (Bld) [#/Vol] 3.92 10*3/uL Normal 1.45-7.50 [facility] Comment on above: Order Comment: Speci men Type: BLOOD SPECIMEN Ordering Facility: [facility] Address: [address] [place], [place] [address] Performed By: #### 2 4331-1 #### [facility] CLIA [id number] [address] [place], [place] [address] [place] [facility] CLIA [id number] [address] [place] [address] [place] #### 76679-8 #### [facility] CLIA [id number] [address] [place] [address] [place] Neutrophils/100 WBC (Bld) 62.6 % Normal [facility] Comment on above: Order Comment: Speci men Type: BLOOD SPECIMEN Ordering Facility: [facility] Address: [address] [place] [address] Performed By: #### 2 4331-1 #### [facility] CLIA [id number] [address] [place] [address] [place] [facility] [id number] [place] [address] [place] #### 96287-8 #### [facility] CLIA [id number] [address] [place] [address] [place] Nucleated RBC (Bld) [#/Vol] 10*3/uL Normal <0.01 [facility] Comment on above: Order Comment: Speci men Type: BLOOD SPECIMEN Ordering Facility: [facility] Address: [address] [place] [address] Performed By: #### 2 4331-1 #### [facility] CLIA [id number] [address] [place] [address] [place] [facility] CLIA [id number] [address] [place] [address] [place] #### 55121-7 #### [facility] CLIA [id number] [address] [place] [address] [place] Nucleated RBC/100 WBC (Bld) [Ratio] 0.0 /100 WBC Normal [facility] Comment on above: Order Comment: Speci men Type: BLOOD SPECIMEN Ordering Facility: [facility] Address: [address] [place] [address] Performed By: #### 2 4331-1 #### [facility] CLIA [id number] [address] [place] [address] [place] [facility] CLIA [id number] [address] [place] [address] [place] #### 39841-2 #### [facility] CLIA [id number] [address] [place] [address] [place] Platelet mean volume (Bld) [Entitic vol] 9.5 fL Normal 9.0-12.7 [facility] Comment on above: Order Comment: Speci men Type: BLOOD SPECIMEN Ordering Facility: [facility] Address: [address] [place] [address] Performed By: #### 2 4331-1 #### [facility] CLIA [id number] [address] [place] [address] [place] [facility] CLIA [id number] [address] [place] [address] [place] #### 93283-1 #### [facility] CLIA [id number] [address] [place] [address] [place] Platelets (Bld) [#/Vol] 202 10*3/uL Normal 150-400 [facility] Comment on above: Order Comment: Speci men Type: BLOOD SPECIMEN Ordering Facility: [facility] Address: [address] [place] [address] Performed By: #### 2 4331-1 #### [facility] CLIA [id number] [address] [place] [address] [place] [facility] CLIA [id number] [address] [place] [address] [place] #### 48065-2 #### [facility] CLIA [id number] [address] [place] [address] [place] RBC (Bld) [#/Vol] 2.75 10*6/uL Low 3.90-5.20 [facility] Comment on above: Order Comment: Speci men Type: BLOOD SPECIMEN Ordering Facility: [facility] Address: [address] [place] [address] Performed By: #### 2 4331-1 #### [facility] CLIA [id number] [address] [place] [address] [place] [facility] [id number] [address] [place] [address] [place] #### 83883-8 #### [facility] CLIA [id number] [address] [place] [address] [place] WBC (Bld) [#/Vol] 6.26 10*3/uL Normal 3.70-11.00 [facility] Comment on above: Order Comment: Speci men Type: BLOOD SPECIMEN Ordering Facility: [facility] Address: [address] [place] [address] Performed By: #### 2 4331-1 #### [facility] CLIA [id number] [address] [place] [address] [place] [facility] CLIA [id number] [address] [place] [address] [place] #### 25606-8 #### [facility] CLIA [id number] [address] [place] [address] [place] CNOVon 10-31-2024 CNOV Office Visit ([facility] ) BERTA SANCHES ([id number]) 1945 [place] Date Time Provider Department 10/31/24 11:00 AM SHAYE DOMINGO During your visit today, we recorded the following information about you: Pulse Blood pressure Weight 84/minute 147/68 64.4 kg Shaye Domingo, OPTICAL MANAGER.GRAVEDIGGER 10/31/2024 12:52 PM Signed Chief Complaint Patient presents with: Hospital F/U [facility] Berta Sanches is a 79 year old female who presents here today for Above Complaints.. Acute Mesenteric Ischemia: - Initially admitted to [facility] on 10/02/2024. - Underwent femoral ultrasound-guided angiogram with angioplasty and stenting of the SMA. - Required CRRT for MONIQUE post-op. - Developed AFib with RVR post-op. - Discharged after 23-day hospitalization. Acute on Chronic Heart Failure: - Given IV Lasix during initial admission. 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 Lua PACEMAKER 10/2019 PART. HYSTERECTOMY W/WO RMVL OVARIES/TUBES 1973 h/o cervical cancer ovaries remain PAST SURGICAL HISTORY OF 1996 Aortic valve repair, Dr. Apodaca PAST SURGICAL HISTORY OF 2001 [address] Beltrán, [facility] PAST SURGICAL HISTORY OF 2016 [...] mcg epi (more content not included)... Normal [facility] metabolic 2000 panelOrdered By: Shala Segura on 10-31-2024 Albumin [Mass/Vol] 4 g/dL 3.9 - 4.9 g/dL [facility] ALP [Catalytic activity/Vol] 81 U/L 34 - 123 U/L [facility] ALT [Catalytic activity/Vol] 10 U/L 7 - 38 U/L [facility] Anion gap [Moles/Vol] 11 mmol/L 8 - 15 mmol/L [facility] AST [Catalytic activity/Vol] 19 U/L 13 - 35 U/L [facility] Bilirubin [Mass/Vol] 1 mg/dL 0.2 - 1 .3 mg/dL [facility] Calcium [Mass/Vol] 9.3 mg/dL 8.5 - 10. 2 mg/dL [facility] Chloride [Moles/Vol] 83 mmol/L Low 98 - 10 7 mmol/L [facility] CO2 [Moles/Vol] 29 mmol/L 22 - 30 mmol/L [facility] Creatinine [Mass/Vol] 2.5 mg/dL High 0.58 - 0.96 mg/dL [facility] GFR/1.73 sq M.predicted among non-blacks MDRD (S/P/Bld) [Vol rate/Area] 19 mL/min/{1.73_m2} Low - PINF [facility] Comment on above: Estimated Glomerular Filtration Rate [...] High 74 - 99 mg/dL [facility] Comment on above: The [place] [employer] (ADA) provides guidance for [...] Standards of Medical Care in Diabetes 2016, [place] [employer]. Diabetes Care. 2016.39(Suppl 1). Interpretation and review of laboratory results Abnormal [facility] Potassium [Moles/Vol] 3.8 mmol/L 3.7 - 5.1 mmol/L [facility] Protein [Mass/Vol] 7 g/dL 6.3 - 8.0 g/dL [facility] Sodium [Moles/Vol] 123 mmol/L Low 136 - 144 mmol/L [facility] Urea nitrogen [Mass/Vol] 53 mg/dL High 7 - 21 mg/dL [facility] Comprehensive metabolic 2000 panelon 10-31-2024 Albumin [Mass/Vol] 4.0 g/dL Normal 3.9-4.9 [facility] Comment on above: Order Comment: Annie ricci Type: BLOOD SPECIMEN Ordering Facility: [facility] Address: [address] [place] [address] Performed By: #### 3 3762-6 #### [facility] CLIA [id number] [address] [place] [address] [place] ALP [Catalytic activity/Vol] 81 U/L Normal 34-123 [facility] Comment on above: Order Comment: Kunali men Type: BLOOD SPECIMEN Ordering Facility: [facility] Address: [address] [place] [address] Performed By: #### 3 3762-6 #### [facility] CLIA [id number] [address] [place] [address] [place] ALT [Catalytic activity/Vol] 10 U/L Normal 7-38 [facility] Comment on above: Order Comment: Speci men Type: BLOOD SPECIMEN Ordering Facility: [facility] Address: [address] [place], [place] [address] Performed By: #### 3 3762-6 #### [facility] CLIA [id number] [address] [place], [place] [address] [place] Anion gap [Moles/Vol] 11 mmol/L Normal 8-15 [facility] Comment on above: Order Comment: Speci men Type: BLOOD SPECIMEN Ordering Facility: [facility] Address: [address] [place] [address] Performed By: #### 3 3762-6 #### [facility] CLIA [id number] [address] [place] [address] [place] AST [Catalytic activity/Vol] 19 U/L Normal 13-35 [facility] Comment on above: Order Comment: Speci men Type: BLOOD SPECIMEN Ordering Facility: [facility] Address: [address] [place], [place] [address] Performed By: #### 3 3762-6 #### [facility] CLIA [id number] [address] [place], [place] [address] [place] Bilirubin [Mass/Vol] 1.0 mg/dL Normal 0.2-1.3 [facility] Comment on above: Order Comment: Speci men Type: BLOOD SPECIMEN Ordering Facility: [facility] Address: [address] [place], [place] [address] Performed By: #### 3 3762-6 #### [facility] CLIA [id number] [address] [place], [place] [address] [place] Calcium [Mass/Vol] 9.3 mg/dL Normal 8.5-10.2 [facility] Comment on above: Order Comment: Speci men Type: BLOOD SPECIMEN Ordering Facility: [facility] Address: [address] [place] [address] Performed By: #### 3 3762-6 #### [facility] CLIA [id number] [address] [place] [address] [place] Chloride [Moles/Vol] 83 mmol/L Low 98-107 [facility] Comment on above: Order Comment: Speci men Type: BLOOD SPECIMEN Ordering Facility: [facility] Address: [address] [place] [address] Performed By: #### 3 3762-6 #### [facility] CLIA [id number] [address] [place] [address] [place] CO2 [Moles/Vol] 29 mmol/L Normal 22-30 [facility] Comment on above: Order Comment: Speci men Type: BLOOD SPECIMEN Ordering Facility: [facility] Address: [address] [place] [address] Performed By: #### 3 3762-6 #### [facility] CLIA [id number] [address] [place] [address] [place] Creatinine [Mass/Vol] 2.50 mg/dL High 0.58-0.96 [facility] Comment on above: Order Comment: Speci men Type: BLOOD SPECIMEN Ordering Facility: [facility] Address: [address] [place] [address] Performed By: #### 3 3762-6 #### [facility] CLIA [id number] [address] [place] [address] [place] Creatinine and Glomerular filtration rate.predicted panel (S/P/Bld) 19 mL/min/1.73m??? Low >=60 [facility] Comment on above: Order Comment: Speci men Type: BLOOD SPECIMEN Ordering Facility: [facility] Address: [address] [place] [address] Result Comment: Mira mated Glomerular Filtration Rate [...] GFR. Performed By: #### 3 3762-6 #### [facility] CLIA [id number] [address] [place] [address] [place] Glucose [Mass/Vol] 138 mg/dL High 74-99 [facility] Comment on above: Order Comment: Annie ricci Type: BLOOD SPECIMEN Ordering Facility: [facility] Address: [address] [place] [address] Result Comment: The [place] Diabetes Association (ADA) provides guidance for cutoff [...] Standards of Medical Care in Diabetes 2016, [place] Diabetes Association. Diabetes Care. 2016.39(Suppl 1). Performed By: #### 3 3762-6 #### [facility] CLIA [id number] [address] [place] [address] [place] Potassium [Moles/Vol] 3.8 mmol/L Normal 3.7-5.1 [facility] Comment on above: Order Comment: Annie ricci Type: BLOOD SPECIMEN Ordering Facility: [facility] Address: [address] [place] [address] Performed By: #### 3 3762-6 #### [facility] CLIA [id number] [address] [place], [place] [address] [place] Protein [Mass/Vol] 7.0 g/dL Normal 6.3-8.0 [facility] Comment on above: Order Comment: Speci men Type: BLOOD SPECIMEN Ordering Facility: [facility] Address: [address] [place], [place] [address] Performed By: #### 3 3762-6 #### [facility] CLIA [id number] [address] [place], [place] [address] [place] Sodium [Moles/Vol] 123 mmol/L Low 136-144 [facility] Comment on above: Order Comment: Speci men Type: BLOOD SPECIMEN Ordering Facility: [facility] Address: [address] [place], [place] [address] Performed By: #### 3 3762-6 #### [facility] CLIA [id number] [address] [place], [place] [address] [place] Urea nitrogen [Mass/Vol] 53 mg/dL High 7-21 [facility] Comment on above: Order Comment: Speci men Type: BLOOD SPECIMEN Ordering Facility: [facility] Address: [address] [place], [place] [address] Performed By: #### 3 3762-6 #### [facility] CLIA [id number] [address] [place], [place] [address] [place] MAGNESIUMon 10-31-2024 Magnesium [Mass/Vol] 2 mg/dL 1.7 - 2 .3 mg/dL [facility] Magnesium SerPl-mCncon 10-31 Magnesium [Mass/Vol] 2.0 mg/dL Normal 1.7-2.3 [facility] Comment on above: Order Comment: Speci men Type: BLOOD SPECIMEN Ordering Facility: [facility] Address: [address] [place], [place] [address] Performed By: #### 2 4331-1 #### [facility] CLIA [id number] [address] [address] [place] [facility] CLIA [id number] [address] [place] [address] [place] #### 37558-9 #### [facility] CLIA [id number] [address] [place] [address] [place] Magnesium [Mass/Vol]on 10-31 Interpretation and review of laboratory results Normal [facility] No Panel InformationOrdered By: Shala Segura on 10-31-2024 [facility] Connie 10-12-2024 [facility] Telephone ([facility]) BERTA SANCHES ([id number]) 1945 F [facility] Date Time Provider Department 10/12/24 ALBIN GU [facility] During your visit today, we recorded the following information about you: Albin Gu APRN.CNP 10/12/2024 12:36 PM Signed Patient called to schedule appt in [facility]. Patient also mentions she is currently in [place]. 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 [facility] BERTA SANCHES ([id number]) 1945 F [place] Date Time Provider Department 07/31/24 MELIDA KOO [facility] During your visit today, we recorded the following information about you: Melida Koo APRN.GRAVEDIGGER 07/31/2024 12:00 PM Signed Pt called to request refill for KDur as she has run out of prescription. She states that she is currently in [place] and will be in [place] until October. [facility] called in [place], [place]. Spoke with Pharmacist on duty. Rx for KDur 10 meq PO daily given verbally #90 with no refills. 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 Normal [facility] 25(OH)D3 [facility] 25-hydroxyvitamin D3 [Mass/Vol] 41.9 ng/mL Normal 31.0-80.0 [facility] Comment on above: Order Comment: Speci men Type: BLOOD SPECIMEN Ordering Facility: [facility] Address: [address] [place] [address] Result Comment: Clas sification of 25 [place] Vitamin D status: Deficiency/Insufficiency: < or = 30 ng/ml. Sufficiency/Optimal Levels: 31-80 ng/mL Toxicity: > 100 ng/mL. Test performed by chemiluminescent immunoassay. Performed By: #### 2 4331-1 #### [facility] CLIA [id number] [address] [place] [address] [place] [id number] [place] [address] [place] #### 98197-8 #### [facility] CLIA [id number] [address] [place] [address] [place] ALBUMIN/CREATININE RATIO, INEon 07-07-2024 Albumin DL <= 20 mg/L (U) [Mass/Vol] 21.0 mg/L Normal [facility] Comment on above: Order Comment: Speci men Type: BLOOD SPECIMEN Ordering Facility: [facility] Address: [address] [place] [address] Performed By: #### 2 4331-1 #### [facility] CLIA [id number] [address] [place] [address] [place] [facility] CLIA [id number] [place] [address] [place] #### 45941-8 #### [facility] CLIA [id number] [address] [place] [address] [place] Albumin/Creatinine (U) [Mass ratio] 34 mg/g High <30 [facility] Comment on above: Order Comment: Speci men Type: BLOOD SPECIMEN Ordering Facility: [facility] Address: [address] [place] [address] Result Comment: Adul t Male and Female Nephrotic Criteria: <30 mg/g is considered normal to mildly increased 30-300 mg/g is considered moderately increased >300 mg/g is considered severely increased KDIGO. (2013). KDIGO 2012 Clinical Practice Guideline for the Evaluation and Management of Chronic Kidney Disease. Official Journal of the International Society of Nephrology, 3(1), 1-150. Performed By: #### 2 4331-1 #### [facility] CLIA [id number] [address] [place] [address] [place] [facility] [id number] [address] [place] [address] [place] #### 91990-2 #### [facility] CLIA [id number] [address] [place] [address] [place] Creatinine (U) [Mass/Vol] 61.6 mg/dL Normal 20.0-300.0 [facility] Comment on above: Order Comment: Speci men Type: BLOOD SPECIMEN Ordering Facility: [facility] Address: [address] [place] [address] Performed By: #### 2 4331-1 #### [facility] CLIA [id number] [address] [place] [address] [place] [facility] [id number] [address] [place] [address] [place] #### 76447-8 #### [facility] CLIA [id number] [address] [place] [address] [place] Basic metabolic 2000 panelon 07-07-2024 Anion gap [Moles/Vol] 13 mmol/L Normal 8-15 [facility] Comment on above: Order Comment: Speci men Type: BLOOD SPECIMEN Ordering Facility: [facility] Address: [address] [place], [place] [address] Performed By: #### 3 3762-6 #### [facility] CLIA [id number] [address] [place], [place] [address] [place] Calcium [Mass/Vol] 9.8 mg/dL Normal 8.5-10.2 [facility] Comment on above: Order Comment: Speci men Type: BLOOD SPECIMEN Ordering Facility: [facility] Address: [address] [place] [address] Performed By: #### 3 3762-6 #### [facility] CLIA [id number] [address] [place] [address] [place] Chloride [Moles/Vol] 100 mmol/L Normal 98-107 [facility] Comment on above: Order Comment: Speci men Type: BLOOD SPECIMEN Ordering Facility: [facility] Address: [address] [place] [address] Performed By: #### 3 3762-6 #### [facility] CLIA [id number] [address] [place] [address] [place] CO2 [Moles/Vol] 25 mmol/L Normal 22-30 [facility] Comment on above: Order Comment: Speci men Type: BLOOD SPECIMEN Ordering Facility: [facility] Address: [address] [place], [place] [address] Performed By: #### 3 3762-6 #### [facility] CLIA [id number] [address] [place], [place] [address] [place] Creatinine [Mass/Vol] 1.12 mg/dL High 0.58-0.96 [facility] Comment on above: Order Comment: Speci men Type: BLOOD SPECIMEN Ordering Facility: [facility] Address: [address] [place], [place] [address] Performed By: #### 3 3762-6 #### [facility] CLIA [id number] [address] [place] [address] [place] Creatinine and Glomerular filtration rate.predicted panel (S/P/Bld) 50 mL/min/1.73m??? Low >=60 [facility] Comment on above: Order Comment: Annie ricci Type: BLOOD SPECIMEN Ordering Facility: [facility] Address: [address] [place] [address] Result Comment: Mira mated Glomerular Filtration Rate [...] GFR. Performed By: #### 3 3762-6 #### [facility] CLIA [id number] [address] [place] [address] [place] Glucose [Mass/Vol] 118 mg/dL High 74-99 [facility] Comment on above: Order Comment: Annie ricci Type: BLOOD SPECIMEN Ordering Facility: [facility] Address: [address] [place] [address] Result Comment: The [place] Diabetes Association (ADA) provides guidance for cutoff [...] Standards of Medical Care in Diabetes 2016, [place] Diabetes Association. Diabetes Care. 2016.39(Suppl 1). Performed By: #### 3 3762-6 #### [facility] CLIA [id number] [address] [place] [address] [place] Potassium [Moles/Vol] 4.4 mmol/L Normal 3.7-5.1 [facility] Comment on above: Order Comment: Speci men Type: BLOOD SPECIMEN Ordering Facility: [facility] Address: [address] [place] [address] Performed By: #### 3 3762-6 #### [facility] CLIA [id number] [address] [place] [address] [place] Sodium [Moles/Vol] 138 mmol/L Normal 136-144 [facility] Comment on above: Order Comment: Speci men Type: BLOOD SPECIMEN Ordering Facility: [facility] Address: [address] [place] [address] Performed By: #### 3 3762-6 #### [facility] CLIA [id number] [address] [place] [address] [place] Urea nitrogen [Mass/Vol] 34 mg/dL High 7-21 [facility] Comment on above: Order Comment: Speci men Type: BLOOD SPECIMEN Ordering Facility: [facility] Address: [address] [place] [address] Performed By: #### 3 3762-6 #### [facility] CLIA [id number] [address] [place] [address] [place] CNOVon 07-07-2024 CNOV Office Visit ([facility] ) BERTA SANCHES ([id number]) 1945 F [facility] Date Time Provider Department 07/07/24 8:00 AM DEYSI COLLAZO During your visit today, we recorded the following information about you: Pulse Respiration Blood pressure Weight 69/minute 16/minute 136/70 63.5 kg Deysi Collazo APRN.GRAVEDIGGER 07/07/2024 12:41 PM Signed This is a 78 year old female who presents today with: Patient presents with: Establish Care HISTORY OF PRESENT ILLNESS: Berta Sanches is a 78 year old female. Patient presents with: Establish Care Pt presents today to [facility]. HTN: Patient is compliant with meds Yes. 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 Lua PACEMAKER 10/2019 PART. HYSTERECTOMY W/WO RMVL OVARIES/TUBES 1973 h/o cervical cancer ovaries remain PAST SURGICAL HISTORY OF 1996 Aortic valve repair, Dr. Apodaca PAST SURGICAL HISTORY OF 2001 [address] Beltrán, [facility] PAST SURGICAL HISTORY OF 2015 [...] once daily. (more content not included)... Normal [facility] HbA1c (Bld)on 07-07-2024 Average glucose Estimated from glycated hemoglobin (Bld) [Mass/Vol] 151 mg/dL Normal [facility] Comment on above: Order Comment: Annie ricci Type: BLOOD SPECIMEN Ordering Facility: [facility] Address: [address] [place] [address] Result Comment: eAG: (Estimated average glucose) is a calculated value from HgbA1c and is workforce services representative of the average blood glucose level in the last 2-3 month period. Performed By: #### 3 3762-6 #### [facility] CLIA [id number] [address] [place] [address] [place] HbA1c (Bld) [Mass fraction] 6.9 % High 4.3-5.6 [facility] Comment on above: Order Comment: Annie ricci Type: BLOOD SPECIMEN Ordering Facility: [facility] Address: [address] [place] [address] Result Comment: [place] Diabetes Association guidelines indicate that patients with HgbA1c in the range 5.7-6.4% are at increased risk for development of diabetes, and intervention by lifestyle modification may be beneficial. HgbA1c greater or equal to 6.5% is considered diagnostic of diabetes. Performed By: #### 3 3762-6 #### [facility] CLIA [id number] [address] [place] [address] [place] TSH SerPl-aCncon 07-07-2024 TSH Qn 2.650 m[IU]/L Normal 0.270-4.200 [facility] Comment on above: Order Comment: Annie ricci Type: BLOOD SPECIMEN Ordering Facility: [facility] Address: [address] [place] [address] Performed By: #### 3 3762-6 #### [facility] CLIA [id number] [address] [place] [address] [place] CNOVon 04-07-2024 CN Office Visit ([facility] ) BERTA SANCHES ([id number]) 1945 [facility] Date Time Provider Department 04/07/24 9:00 AM ALBIN GU [facility] During your visit today, we recorded the following information about you: Pulse Blood pressure Weight 91/minute 142/47 62.1 kg Albin Gu APRN.GRAVEDIGGER 04/07/2024 9:57 AM Signed [facility] [place] [facility] OUTPATIENT VISIT [...] a boat and take it out on [place] to fish. IMPRESSION: NYHA Functional Class: II [...] moderate car (more content not included)... Normal [facility] BERTA SANCHES ([id number]) 1945 F [facility] Date Time Provider Department 02/21/24 MELIAD KOO [facility] During your visit today, we [...] understanding of plan of care. 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 Normal [facility] NT-proBNP [facility] 02-14 Natriuretic peptide.B prohormone N-Terminal [Mass/Vol] 5922 pg/mL High <450 [facility] Comment on above: Order Comment: Speci men Type: BLOOD SPECIMEN Ordering Facility: [facility] Address: [address] [place] [address] Performed By: #### 3 3762-6 #### [facility] CLIA [id number] [address] [place] [address] STATES OF [facility] CNPNon 02-07-2024 [facility] Telephone ([facility]) BERTA SANCHES ([id number]) 1945 [facility] Date Time Provider Department 02/07/24 MELIDA KOO [facility] During your visit today, we recorded the following information about you: Melida Koo APRN.GRAVEDIGGER 02/07/2024 8:28 AM Signed Pt called and left message on voicemail stating that she was feeling much better since following instructions that Albin Gu had given her. She reported that SOB and edema was improved. She has concerns about NTpBNP and when she should have that rechecked. Called patient and she did not answer. Message left for call back. 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 [facility] 02-04-2024 [facility] Tele[facility] ([facility]) BERTA SANCHES ([id number]) 1945 F [facility] Date Time Provider Department 02/04/24 MARIBELL KING During your visit today, we recorded the following information about you: Ying Fuentes LPN 02/04/2024 2:12 PM Signed ----- Message from Maribell King APRN.GRAVEDIGGER sent at 02/04/2024 2:02 PM EDT ----- [...] [N18.9] Order(s):BASIC METABOLIC PANEL [SQBMP] Order #: [id number] FUTURE Prescriptions as of 02/07/2024 - furosemide [...] 02/26/2014 03/21/2022 Intracranial aneurysm [I67.1] 08/30/2015 10/05/2022 intermediate current use of antiarrhythmic medical*10/20/2016 09/12/2021 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 [facility] BERTA SANCHES ([id number]) 1945 F [facility] Date Time Provider Department 02/04/24 ALBIN GU [facility] During your visit today, we [...] 02/26/2014 03/21/2022 Intracranial aneurysm [I67.1] 08/30/2015 10/05/2022 intermediate current use of antiarrhythmic medical*10/20/2016 09/12/2021 [...] blood loss (more content not included)... Normal [facility] Comprehensive metabolic 2000 panelon 02-03-2024 Albumin [Mass/Vol] 4.0 g/dL Normal 3.9-4.9 [facility] Comment on above: Order Comment: Speci men Type: BLOOD SPECIMEN Ordering Facility: [facility] Address: [address] [place] [address] Performed By: #### 3 3762-6 #### [facility] CLIA [id number] [address] [place] [address] [place] ALP [Catalytic activity/Vol] 102 U/L Normal 34-123 [facility] Comment on above: Order Comment: Speci men Type: BLOOD SPECIMEN Ordering Facility: [facility] Address: [address] [place] [address] Performed By: #### 3 3762-6 #### [facility] CLIA [id number] [address] [place] [address] [place] ALT [Catalytic activity/Vol] 10 U/L Normal 7-38 [facility] Comment on above: Order Comment: Speci men Type: BLOOD SPECIMEN Ordering Facility: [facility] Address: [address] [place] [address] Performed By: #### 3 3762-6 #### [facility] CLIA [id number] [address] [place], [place] [address] [place] Anion gap [Moles/Vol] 11 mmol/L Normal 8-15 [facility] Comment on above: Order Comment: Speci men Type: BLOOD SPECIMEN Ordering Facility: [facility] Address: [address] [place] [address] Performed By: #### 3 3762-6 #### [facility] CLIA [id number] [address] [place], [place] [address] [place] AST [Catalytic activity/Vol] 16 U/L Normal 13-35 [facility] Comment on above: Order Comment: Speci men Type: BLOOD SPECIMEN Ordering Facility: [facility] Address: [address] [place] [address] Performed By: #### 3 3762-6 #### [facility] CLIA [id number] [address] [place] [address] [place] Bilirubin [Mass/Vol] 1.1 mg/dL Normal 0.2-1.3 [facility] Comment on above: Order Comment: Speci men Type: BLOOD SPECIMEN Ordering Facility: [facility] Address: [address] [place] [address] Performed By: #### 3 3762-6 #### [facility] CLIA [id number] [address] [place] [address] [place] Calcium [Mass/Vol] 9.5 mg/dL Normal 8.5-10.2 [facility] Comment on above: Order Comment: Speci men Type: BLOOD SPECIMEN Ordering Facility: [facility] Address: [address] [place] [address] Performed By: #### 3 3762-6 #### [facility] CLIA [id number] [address] [place] [address] [place] Chloride [Moles/Vol] 98 mmol/L Normal 98-107 [facility] Comment on above: Order Comment: Speci men Type: BLOOD SPECIMEN Ordering Facility: [facility] Address: [address] [place], [place] [address] Performed By: #### 3 3762-6 #### [facility] CLIA [id number] [address] [place] [address] [place] CO2 [Moles/Vol] 22 mmol/L Normal 22-30 [facility] Comment on above: Order Comment: Speci men Type: BLOOD SPECIMEN Ordering Facility: [facility] Address: [address] [place] [address] Performed By: #### 3 3762-6 #### [facility] CLIA [id number] [address] [place] [address] [place] Creatinine [Mass/Vol] 1.28 mg/dL High 0.58-0.96 [facility] Comment on above: Order Comment: Speci men Type: BLOOD SPECIMEN Ordering Facility: [facility] Address: [address] [place] [address] Performed By: #### 3 3762-6 #### [facility] CLIA [id number] [address] [place] [address] [place] Creatinine and Glomerular filtration rate.predicted panel (S/P/Bld) 43 mL/min/1.73m??? Low >=60 [facility] Comment on above: Order Comment: Annie men Type: BLOOD SPECIMEN Ordering Facility: [facility] Address: [address] [place] [address] Result Comment: Mira mated Glomerular Filtration Rate [...] GFR. Performed By: #### 3 3762-6 #### [facility] CLIA [id number] [address] [place] [address] [place] Glucose [Mass/Vol] 147 mg/dL High 74-99 [facility] Comment on above: Order Comment: Kunali men Type: BLOOD SPECIMEN Ordering Facility: [facility] Address: [address] [place] [address] Result Comment: The [place] Diabetes Association (ADA) provides guidance for cutoff [...] Standards of Medical Care in Diabetes 2016, [place] [employer]. Diabetes Care. 2016.39(Suppl 1). Performed By: #### 3 3762-6 #### [facility] CLIA [id number] [address] [place] [address] [place] Potassium [Moles/Vol] 4.8 mmol/L Normal 3.7-5.1 [facility] Comment on above: Order Comment: Annie ricci Type: BLOOD SPECIMEN Ordering Facility: [facility] Address: [address] [place] [address] Performed By: #### 3 3762-6 #### [facility] CLIA [id number] [address] [place] [address] [place] Protein [Mass/Vol] 7.2 g/dL Normal 6.3-8.0 [facility] Comment on above: Order Comment: Annie ricci Type: BLOOD SPECIMEN Ordering Facility: [facility] Address: [address] [place] [address] Performed By: #### 3 3762-6 #### [facility] CLIA [id number] [address] [place] [address] [place] Sodium [Moles/Vol] 131 mmol/L Low 136-144 [facility] Comment on above: Order Comment: Kunali men Type: BLOOD SPECIMEN Ordering Facility: [facility] Address: [address] [place] [address] Performed By: #### 3 3762-6 #### [facility] CLIA [id number] [address] [place] [address] [place] Urea nitrogen [Mass/Vol] 34 mg/dL High 7-21 [facility] Comment on above: Order Comment: Speci men Type: BLOOD SPECIMEN Ordering Facility: [facility] Address: [address] [place] [address] Performed By: #### 3 3762-6 #### [facility] CLIA [id number] [address] [place] [address] [place] Lipid 1996 panelon 4 Cholesterol [Mass/Vol] 98 mg/dL Normal <200 [facility] Comment on above: Order Comment: Speci men Type: BLOOD SPECIMEN Ordering Facility: [facility] Address: [address] [place] [address] Result Comment: <200 mg/dL, Desirable 200-239 mg/dL, Borderline high >239 mg/dL, High Performed By: #### 2 4331-1 #### [facility] CLIA [id number] [address] [place] [address] [place] [facility] CLIA [id number] [address] [place] [address] [place] #### 98092-8 #### [facility] CLIA [id number] [address] [place] [address] [place] Cholesterol in HDL [Mass/Vol] 34 mg/dL Low >39 [facility] Comment on above: Order Comment: Speci men Type: BLOOD SPECIMEN Ordering Facility: [facility] Address: [address] [place] [address] Result Comment: 40-5 9 mg/dL, Acceptable >59 mg/dL, High: Negative risk factor for coronary heart disease <40 mg/dL, Low: Positive risk factor for coronary heart disease Performed By: #### 2 4331-1 #### [facility] CLIA [id number] [address] [place] [address] [place] [facility] CLIA [id number] [address] [place] [address] [place] #### 63364-6 #### [facility] CLIA [id number] [address] [place] [address] STATES [facility] Cholesterol in LDL [Mass/Vol] 51 mg/dL Normal <100 [facility] Comment on above: Order Comment: Speci men Type: BLOOD SPECIMEN Ordering Facility: [facility] Address: [address] [place] [address] Result Comment: <100 mg/dL, Optimal 100-129 mg/dL, Near optimal/above optimal 130-159 mg/dL, Borderline high 160-189 mg/dL, High >189 mg/dL, Very high Secondary prevention optimal LDL Cholesterol levels are recommended to be < 70 mg/dL Performed By: #### 2 4331-1 #### [facility] CLIA [id number] [address] [place] [address] [place] [facility] CLIA [id number] [address] [place] [address] OF [place] #### 89311-1 #### [facility] CLIA [id number] [address] [place] [address] [place] Cholesterol in LDL/Cholesterol in HDL [Mass ratio] 1.50 {ratio} Normal <2.54 [facility] Comment on above: Order Comment: Speci men Type: BLOOD SPECIMEN Ordering Facility: [facility] Address: [address] [place] [address] Result Comment: Hussein phillips: 1. National Cholesterol Education Program ATP III Guideline At-A-Glance Quick Desk Reference: National Heart, Lung, and Blood [place]. National Institutes of Health. 2001: NIH Publication No. 01-3305. 2. An International Atherosclerosis Society position paper: global recommendations for the management of dyslipidemia: executive summary, Atherosclerosis. 2014: 232(2):410-413. Performed By: #### 2 4331-1 #### [facility] CLIA [id number] [address] [place] [address] [place] [facility] CLIA [id number] [address] [place] [address] [place] #### 20224-2 #### [facility] CLIA [id number] [address] [place] [address] [place] Cholesterol in VLDL [Mass/Vol] 13 mg/dL Normal <30 [facility] Comment on above: Order Comment: Speci men Type: BLOOD SPECIMEN Ordering Facility: [facility] Address: [address] [place], [place] [address] Performed By: #### 2 4331-1 #### [facility] CLIA [id number] [address] [place] [address] [place] [facility] CLIA [id number] [address] [place] [address] [place] #### 11950-4 #### [facility] CLIA [id number] [address] [place] [address] [place] Cholesterol non HDL [Mass/Vol] 64 mg/dL Normal <130 [facility] Comment on above: Order Comment: Speci men Type: BLOOD SPECIMEN Ordering Facility: [facility] Address: [address] [place], [place] [address] Result Comment: <130 mg/dL, Optimal 130-159 mg/dL, Near optimal/above optimal 160-189 mg/dL, Borderline high 190-219 mg/dL, High >219 mg/dL, Very high Secondary prevention optimal non HDL Cholesterol levels are recommended to be <100 mg/dL Performed By: #### 2 4331-1 #### [facility] CLIA [id number] [address] [place], [place] [address] [place] [facility] CLIA [id number] [address] [place] [address] [place] #### 72738-8 #### [facility] CLIA [id number] [address] [place] [address] [place] Cholesterol.total/Gin sterol in HDL [Mass ratio] 2.88 {ratio} Normal <5.10 [facility] Comment on above: Order Comment: Speci men Type: BLOOD SPECIMEN Ordering Facility: [facility] Address: [address] [place] [address] Performed By: #### 2 4331-1 #### [facility] CLIA [id number] [address] [place] [address] [place] [facility] CLIA [id number] [address] [place] [address] [place] #### 47073-5 #### [facility] CLIA [id number] [address] [place] [address] [place] FASTING TIME 12 hrs Normal [facility] Comment on above: Order Comment: Speci men Type: BLOOD SPECIMEN Ordering Facility: [facility] Address: [address] [place], [place] [address] Performed By: #### 2 4331-1 #### [facility] CLIA [id number] [address] [place] [address] [place] [facility] [id number] [address] [place] [address] [place] #### 01991-7 #### [facility] CLIA [id number] [address] [place] [address] [place] Triglyceride [Mass/Vol] 67 mg/dL Normal <150 [facility] Comment on above: Order Comment: Speci men Type: BLOOD SPECIMEN Ordering Facility: [facility] Address: [facility] [place] [id number] Result Comment: <150 mg/dL, Normal 150-199 mg/dL, Borderline high 200-499 mg/dL, High >499 mg/dL, Very high Performed By: #### 2 4331-1 #### [facility] CLIA [id number] [address] [place] [address] [place] [facility] CLIA [id number] [address] [place] [address] [place] #### 40951-7 #### [facility] CLIA [id number] [address] [place] [address] [place] NT-proBNP SerPl-mCncon 02-02 Natriuretic peptide.B prohormone N-Terminal [Mass/Vol] 8577 pg/mL High <450 [facility] Comment on above: Order Comment: Speci men Type: BLOOD SPECIMEN Ordering Facility: [facility] Address: [address] [place] [address] Performed By: #### 2 4331-1 #### [facility] CLIA [id number] [address] [place] [address] [place] [facility] CLIA [id number] [address] [place] [address] [place] #### 19782-5 #### [facility] CLIA [id number] [address] [place] [address] [place] Phosphate SerPl-mCncon 02-02 Phosphate [Mass/Vol] 3.3 mg/dL Normal 2.7-4.8 [facility] Comment on above: Order Comment: Speci men Type: BLOOD SPECIMEN Ordering Facility: [facility] Address: [address] [place] [address] Performed By: #### 3 3762-6 #### [facility] CLIA [id number] [address] [place] [address] [place] CNOVon 01-17-2024 CNOV Office Visit (CAWSTR ) BERTA SANCHES ([id number]) 1945 Date Time Provider Department 01/17/24 9:20 AM CARLA BURDICK During your visit today, we recorded the following information about you: Pulse Blood pressure Weight Height 64/minute 157/59 66.8 kg 1.575 m Carla Burdick MD 01/17/2024 10:36 AM Signed [facility] Cardiology ([facility]) [address] [facility] [id number] OUTPATIENT VISIT DATE 01/17/2024 PRIMARY CARE PHYSICIAN: Doreen Le [address] [place] [address] HISTORY OF PRESENT ILLNESS: Ms. 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 Lua PACEMAKER 10/2019 PART. HYSTERECTOMY W/WO RMVL OVARIES/TUBES 1974 h/o cervical cancer ovaries remain PAST SURGICAL HISTORY OF 1996 Aortic valve repair, Dr. Apodaca PAST SURGICAL HISTORY OF 2001 [address] Beltrán, [facility] PAST SURGICAL HISTORY OF 2015 [...] shortly af (more content not included)... Normal [facility] ALLIED HEALTHon 11-08-2023 ALLIED HEALTH HNO ID: [id number] Author: SONY LUIS RT(R) Service: Radiology Author [...] PATIENT PRESENTS WITH AN IMPLANTABLE OR ATTACHED OFFSET PRINTING OPERATOR: No RADIOLOGY DEPARTMENT: General X-ray: Exam(s) Completed: Chest X-Ray PERIPHERAL IV DATA: Not applicable SIGNED BY: RT Risa(R) November 08, 2023 6:37 PM [facility] ED PROV NOTEon 11-08-2023 ED PROV NOTE HNO ID: [id number] Author: SHUBHAM CHAUDHRY MD Service: ? Author Type: Physician Type: ED Provider Notes Filed: 11/08/2023 20:32 Note Text: Left after being seen in triage. Called patient and recommended she come back due to her presenting sxs. States she will come back. SIGNATURE: Shubham Chaudhry MD PATIENT NAME: Berta Sanches DATE: November 08, 2023 TIME: 8:31 PM PAGER/CONTACT #: SHUBHAM CHAUDHRY 11/08/232031 [facility] ED Triage Noteon 11-08-2023 ED Triage Note HNO ID: [id number] Author: SHUBHAM CHAUDHRY MD Service: ? Author [...] TROPONIN T EKG SIGNATURE: Shubham Chaudhry MD [facility] EKGon 11-08-2023 Electrocardiogram Ventricular Rate : 1 13 BPM Atrial Rate : 0 BPM P-R Interval : 250 ms QRS Duration : 102 ms Q-T Interval : 320 ms QTC Calculation(Bazett) : 439 ms Calculated P Everson : -38 degrees Calculated R Everson : -29 degrees Calculated T Everson : 132 degrees Sinus tachycardia Prolonged [place] interval LVH with secondary repolarization abnormality Abnormal ECG No Stemi 1746 Confirmed by MD CHAUDHRY BLAIN ([id number]), book or script editor BRYON MIJARES ([id number]) on 11/08/2023 10:31:52 PM NAME : BERTA SANCHES PID : [id number] : 1945 Gender : Female Race : ORD : Procedure Date : Nov 08 2023 17:44:03 Edit Date : Nov 08 2023 22:31:54 Diagnosis: Sinus tachycardia Prolonged [place] interval LVH with secondary repolarization abnormality Abnormal ECG No Stemi 1746 Confirmed by MD CHAUDHRY BLAIN ([id number]), book or script editor BRYON MIJARES ([id number]) on 11/08/2023 10:31:52 PM Test Reason : Location : 402 : FVED TRIAGE Overread By : MD CHAUDHRY BLAIN Edited By : BRYON MIJARES Referred By : , Acquired by : [id number], Normal [facility] XR CHEST 2V FRONTAL/LATon XR CHEST 2V [...] Query hilar lymphadenopathy. No confluent alveolar opacity. Classroom Instructor: PSCB Transcribe Date/Time: Nov 08 2023 7:38P Dictated by : LIZZIE LARA MD This examination was interpreted and the report reviewed and electronically signed by: LIZZIE LARA MD on Nov 08 2023 7:44PM EST [id number] Normal [facility] US Lower extremity veins - b ilateralon 10-20-2023 Non-Invasive [facility]ascular [facility] Lower Extremity Venous Duplex [...] below for Image [facility] ECG COMPLETEon 10-19-2023 Atrial Rate 125 BPM [facility] Calculated R Everson -40 degrees [facility] Calculated T Everson -34 degrees [facility] QRS Duration 106 ms [facility] QT Interval 410 ms [facility] QTC Calculation (Bazett) 490 ms [facility] Ventricular Rate 86 BPM [facility] XR Chest PA and Lateralon IMPRESSION: No acute radiographic abnormality. Cardiomegaly Classroom Instructor: JAMES Transcribe Date/Time: Oct 18 2023 4:16P Dictated by : MICHAELLE BAHENA MD This examination was interpreted and the report reviewed and electronically signed by: MICHAELLE BAHENA MD on Oct 18 2023 4:18PM [facility] DIVISION OF RADIOLOGY * [...] soft tissues: Unremarkable. DIVISION OF RADIOLOGY Provider, [facility] - 10/18/2023 * * *Final Report* [...] IMPRESSION IMPRESSION: No acute radiographic abnormality. Cardiomegaly Classroom Instructor: PSCB Transcribe Date/Time: Oct 18 2023 4:16P Dictated by : MICHAELLE BAHENA MD This examination was interpreted and the report reviewed and electronically signed by: MICHAELLE BAHENA MD on Oct 18 2023 4:18PM [facility] Radiology Study observation (narrative) Chris [facility] XR Chest PA and LateralOrder ed By: Ccf Provider on 10-18-2023 [facility] No Panel Informationon 10-15 BLANK _ [facility] Implant Date 10/21/2020 [facility] PACEMAKER REMOTE CHECKon AV Delay Adaptive Paced Minimum (ms) 180 ms [facility] AV Delay Adaptive Sensed Minimum (ms) 150 ms [facility] AV Delay Adaptive Status DISABLED [facility] Battery Voltage (volts) 3.02 V C [facility] Pavan RA Pacing Amplitude (volts) 1.5 V [facility] Pavan RA Pacing Polarity BI [facility] Pavan RA Pacing Pulse Width (ms) 0.4 ms [facility] Pavan RA Sensing Amplitude (mvolts) 0.3 mV [facility] Pavan RA Sensing Blanking Period (ms) 150 ms [facility] Pavan RA Sensing Polarity BI [facility] Pavan RA Sensing Refractory Period (ms) Auto [facility] Pavan RV Pacing Amplitude (volts) 2 V [facility] Pavan RV Pacing Polarity BI [facility] Pavan RV Pacing Pulse Width (ms) 0.4 ms [facility] Pavan RV Sensing Amplitude (mvolts) 0.9 mV [facility] Pavan RV Sensing Blanking Period (ms) 200 ms [facility] Pavan RV Sensing Polarity BI [facility] Hysteresis Rate (bpm) DISABLED [facility] Lead1 Mfg MDT [facility] Lead2 Mfg MDT [facility] Location RV [facility] Location RA [facility] Lower Rate (bpm) 60 {beats}/min [facility] Max Sensor Rate (bmp) 120 {beats}/min [facility] Model [id number] Sania XT DR MRI Cl [facility] Model 3830 SelectSecure MR I SureScan [facility] Model 5076 CapSureFix Novus [facility] PM-Device Mfg MDT [facility] PM-Percent Pacing (A) 7.59 % [facility] PM-Percent Pacing (V) 18.89 % [facility] PM-PMT Intervention ENABLED [facility] PM-PVC Intervention ENABLED [facility] PM-Rate Modulation Acceleration Reaction 30 s [facility] PM-Rate Modulation ADL Rate (bpm) 95 {beats}/min [facility] PM-Rate Modulation Deceleration Exercise [facility] PM-Rate Modulation Barbour 3 [facility] PM-Rate Modulation Threshold Low [facility] RA Bipolar Impedance ohms 513 ohm [facility] RA Unipolar Impedance ohms 304 ohm [facility] RV Bipolar Impedance ohms 456 ohm [facility] RV Unipolar Impedance 342 ohm [facility] Serial Number [id number] [facility] Serial Number [id number] [facility] Serial Number [id number] [facility] Thresh RA Capture Amplitude (volts) 0.75 V [facility] Thresh RA Capture Duration (ms) 0.4 ms [facility] Thresh RA Sensing Amplitude (mvolts) 0.5 mV [facility] Thresh RV Capture Amplitude (volts) 1 V [facility] Thresh RV Capture Duration (ms) 0.4 ms [facility] Thresh RV Sensing Amplitude (mvolts) 12.5 mV [facility] Tracking Rate (bpm) 120 {beats}/min [facility] INFLUENZA A&B MOLECULAR (POC )on 07-05-2023 Flu A (POCT) Negative Negative [facility] Flu B (POCT) Negative Negative [facility] Procedural Control Valid [facility] XR Foot - right AP and Later al and obliqueon 06-03-2023 IMPRESSION: 1. Nondisplaced fracture of the base of the right fifth metatarsal 2. Right first metatarsophalangeal joint space narrowing and periarticular erosions, which can be seen with gout Classroom Instructor: PSCB Transcribe Date/Time: Jun 03 2023 4:34P Dictated by : JUDSON JACINTO MD This examination was interpreted and the report reviewed and electronically signed by: JUDSON JACINTO MD on Jun 03 2023 4:36PM [facility] DIVISION OF RADIOLOGY * [...] soft tissue swelling. DIVISION OF RADIOLOGY Provider, [facility] - 06/03/2023 [...] erosions, which can be seen with gout Classroom Instructor: JAMES Transcribe Date/Time: Jun 03 2023 4:34P Dictated by : JUDSON JACINTO MD This examination was interpreted and the report reviewed and electronically signed by: JUDSON JACINTO MD on Jun 03 2023 4:36PM EST [facility] XR Foot - right AP and Later al and obliqueOrdered By: Cc Provider on 06-03-2023 [facility] [place] X[facility] Foot - right AP and Later al and obliqueon 06-01-2023 Radiology Study observation (narrative) [facility] CT CHEST WO IVCONon 04-30-20 [facility] [place] XR Finger - right AP and Lat eral and obliqueon 04-15-2023 IMPRESSION: No acute osseous abnormality Classroom Instructor: [email or web address] Transcribe Date/Time: Apr 15 2023 11:58A Dictated by : JUDSON JACINTO MD This examination was interpreted and the report reviewed and electronically signed by: JUDSON JACINTO MD on Apr 15 2023 11:59AM [facility] DIVISION OF RADIOLOGY * [...] No periarticular erosions. DIVISION OF RADIOLOGY Provider, [facility] - 04/15/2023 [...] erosions. IMPRESSION IMPRESSION: No acute osseous abnormality Classroom Instructor: PSCB Transcribe Date/Time: Apr 15 2023 11:58A Dictated by : JUDSON JACINTO MD This examination was interpreted and the report reviewed and electronically signed by: JUDSON JACINTO MD on Apr 15 2023 11:59AM EST [facility] [place] XR Finger - right AP and Lat eral and obliqueOrdered By: [facility]cf Provider on 04-15-2023 [facility] [place] XR Finger - right AP and Lat eral and obliqueon 04-12-2023 Radiology Study observation (narrative) [facility] No Panel Informationon 03-28 BLANK _ [facility] Implant Date 10/21/2020 [facility] [place] PACEMAKER REMOTE CHECKon AV Delay Adaptive Paced Minimum (ms) 180 ms [facility] [place] AV Delay Adaptive Sensed Minimum (ms) 150 ms [facility] AV Delay Adaptive Status DISABLED [facility] Battery Voltage (volts) 3.02 V [facility] Pavan RA Pacing Amplitude (volts) 1.5 V [facility] [place] Pavan RA Pacing Polarity BI [facility] [place] Pavan RA Pacing Pulse Width (ms) 0.4 ms [facility] [place] Pavan RA Sensing Amplitude (mvolts) 0.3 mV [facility] [place] Pavan RA Sensing Blanking Period (ms) 150 ms [facility] [place] Pavan RA Sensing Polarity BI [facility] Pavan RA Sensing Refractory Period (ms) Auto [facility] Pavan RV Pacing Amplitude (volts) 2 V [facility] Pavan RV Pacing Polarity BI [facility] Pavan RV Pacing Pulse Width (ms) 0.4 ms [facility] Pavan RV Sensing Amplitude (mvolts) 0.9 mV [facility] [place] Pavan RV Sensing Blanking Period (ms) 200 ms [facility] [place] Pavan RV Sensing Polarity BI [facility] Hysteresis Rate (bpm) DISABLED [facility] Lead1 Mfg MDT [facility] Lead2 Mfg MDT [facility] Location RV [facility] Location RA [facility] Lower Rate (bpm) 60 {beats}/min [facility] Max Sensor Rate (bmp) 120 {beats}/min [facility] Model [id number] Sania XT DR MRI Cl [facility] Model 3830 SelectSecure MR I SureScan [facility] Model 5076 CapSureFix Novus [facility] PM-Device Mfg MDT [facility] PM-Percent Pacing (A) 96.66 % [facility] PM-Percent Pacing (V) 1.41 % [facility] PM-PMT Intervention ENABLED [facility] PM-PVC Intervention ENABLED [facility] PM-Rate Modulation Acceleration Reaction 30 s [facility] PM-Rate Modulation ADL Rate (bpm) 95 {beats}/min [facility] PM-Rate Modulation Deceleration Exercise [facility] PM-Rate Modulation Barbour 3 [facility] PM-Rate Modulation Threshold Low [facility] RA Bipolar Impedance ohms 475 ohm [facility] RA Unipolar Impedance ohms 304 ohm [facility] RV Bipolar Impedance ohms 437 ohm [facility] RV Unipolar Impedance 342 ohm [facility] Serial Number [id number] [facility] Serial Number [id number] [facility] Serial Number [id number] [facility] Thresh RA Capture Amplitude (volts) 0.75 V [facility] [place] Thresh RA Capture Duration (ms) 0.4 ms [facility] [place] Thresh RA Sensing Amplitude (mvolts) 0.75 mV [facility] [place] Thresh RV Capture Amplitude (volts) 1 V [facility] Thresh RV Capture Duration (ms) 0.4 ms [facility] [place] Thresh RV Sensing Amplitude (mvolts) 12.375 mV [facility] Tracking Rate (bpm) 120 {beats}/min [facility] No Panel Informationon 12-29 BLANK _ [facility] Implant Date 10/21/2020 [facility] [place] PACEMAKER REMOTE CHECKon AV Delay Adaptive Paced Minimum (ms) 180 ms [facility] AV Delay Adaptive Sensed Minimum (ms) 150 ms [facility] AV Delay Adaptive Status DISABLED [facility] Battery Voltage (volts) 3.02 V [facility] Pavan RA Pacing Amplitude (volts) 1.5 V [facility] Pavan RA Pacing Polarity BI [facility] Pavan RA Pacing Pulse Width (ms) 0.4 ms [facility] [place] Pavan RA Sensing Amplitude (mvolts) 0.3 mV [facility] [place] Pavan RA Sensing Blanking Period (ms) 150 ms [facility] Pavan RA Sensing Polarity BI [facility] Pavan RA Sensing Refractory Period (ms) Auto [facility] Pavan RV Pacing Amplitude (volts) 2 V [facility] Pavan RV Pacing Polarity BI [facility] Pavan RV Pacing Pulse Width (ms) 0.4 ms [facility] Pavan RV Sensing Amplitude (mvolts) 0.9 mV [facility] Pavan RV Sensing Blanking Period (ms) 200 ms [facility] Pavan RV Sensing Polarity BI [facility] Hysteresis Rate (bpm) DISABLED [facility] Lead1 Mfg MDT [facility] Lead2 Mfg MDT [facility] Location RV [facility] Location RA [facility] Lower Rate (bpm) 60 {beats}/min [facility] Max Sensor Rate (bmp) 120 {beats}/min [facility] Model [id number] [place] XT DR MRI Cl [facility] Model 3830 SelectSecure MR I SureScan [facility] Model 5076 CapSureFix Novus [facility] PM-Device Mfg MDT [facility] PM-Percent Pacing (A) 79.14 % [facility] PM-Percent Pacing (V) 5.48 % [facility] PM-PMT Intervention ENABLED [facility] PM-PVC Intervention ENABLED [facility] PM-Rate Modulation Acceleration Reaction 30 s [facility] PM-Rate Modulation ADL Rate (bpm) 95 {beats}/min [facility] PM-Rate Modulation Deceleration Exercise [facility] PM-Rate Modulation Barbour 3 [facility] PM-Rate Modulation Threshold Low [facility] RA Bipolar Impedance ohms 437 ohm [facility] RA Unipolar Impedance ohms 304 ohm [facility] RV Bipolar Impedance ohms 437 ohm [facility] RV Unipolar Impedance 342 ohm [facility] Serial Number [id number] [facility] Serial Number [id number] [facility] Serial Number [id number] [facility] Thresh RA Capture Amplitude (volts) 0.625 V [facility] Thresh RA Capture Duration (ms) 0.4 ms [facility] [place] Thresh RA Sensing Amplitude (mvolts) 0.875 mV [facility] Thresh RV Capture Amplitude (volts) 1 V [facility] Thresh RV Capture Duration (ms) 0.4 ms [facility] Thresh RV Sensing Amplitude (mvolts) 10.75 mV [facility] Tracking Rate (bpm) 120 {beats}/min [facility] [place] MRA BRAIN WO/W IVCONon 12-10 MRA BRAIN WO/W IVCON * * *Final Report* * * DATE OF EXAM: Dec 10 2022 1:14PM [facility] 0273 - MRA BRAIN WO/W IVCON / PROCEDURE REASON: multiple diagnoses * * * * Physician Interpretation * * * * EXAMINATION: MRA BRAIN WO/W IVCON CLINICAL HISTORY: Nonruptured acom aneurysm follow-up. TECHNIQUE: Short TR short TE SPGR through the [facility] [place] after contrast. Intracranial 3D [id number] MRA with post-processing performed at the modality [...] aneurysm coiling. No additional intracranial aneurysms identified. Classroom Instructor: JAMES Transcribe Date/Time: Dec 10 2022 1:31P Dictated by : TYE REN MD This examination was interpreted and the report reviewed and electronically signed by: TYE REN MD on Dec 10 2022 1:38PM EST [id number] Normal [facility] KIDNEY/BLADDERon 10-07-19 Radiology Result ACTIONABLE Abnormal [facility] No Panel Informationon 09-27 BLANK _ [facility] Implant Date 10/21/2020 [facility] PACEMAKER REMOTE CHECKon AV Delay Adaptive Paced Minimum (ms) 180 ms [facility] AV Delay Adaptive Sensed Minimum (ms) 150 ms [facility] AV Delay Adaptive Status DISABLED [facility] Battery Voltage (volts) 3.02 V [facility] Pavan RA Pacing Amplitude (volts) 1.5 V [facility] [place] Pavan RA Pacing Polarity BI [facility] [place] Pavan RA Pacing Pulse Width (ms) 0.4 ms [facility] [place] Pavan RA Sensing Amplitude (mvolts) 0.3 mV [facility] [place] Pavan RA Sensing Blanking Period (ms) 150 ms [facility] [place] Pavan RA Sensing Polarity BI [facility] [place] Pavan RA Sensing Refractory Period (ms) Auto [facility] Pavan RV Pacing Amplitude (volts) 2 V [facility] Pavan RV Pacing Polarity BI [facility] Pavan RV Pacing Pulse Width (ms) 0.4 ms [facility] Pavan RV Sensing Amplitude (mvolts) 0.9 mV [facility] [place] Pavan RV Sensing Blanking Period (ms) 200 ms [facility] Pavan RV Sensing Polarity BI [facility] Hysteresis Rate (bpm) DISABLED [facility] Lead1 Karlg MDT [facility] Lead2 Karlg T [facility] Location RV [facility] Location RA [facility] Lower Rate (bpm) 60 {beats}/min [facility] Max Sensor Rate (bmp) 120 {beats}/min [facility] Model [id number] Sania XT DR MRI Cl [facility] Model 3830 SelectSecure MR I SureScan [facility] Model 5076 CapSureFix [facility] PM-Device Mfg MDT [facility] PM-Percent Pacing (A) 46.27 % [facility] PM-Percent Pacing (V) 11.47 % [facility] PM-PMT Intervention ENABLED [facility] PM-PVC Intervention ENABLED [facility] PM-Rate Modulation Acceleration Reaction 30 s [facility] PM-Rate Modulation ADL Rate (bpm) 95 {beats}/min [facility] PM-Rate Modulation Deceleration Exercise [facility] PM-Rate Modulation Barbour 3 [facility] PM-Rate Modulation Threshold Low [facility] RA Bipolar Impedance ohms 494 ohm [facility] RA Unipolar Impedance ohms 285 ohm [facility] RV Bipolar Impedance ohms 437 ohm [facility] RV Unipolar Impedance 323 ohm [facility] Serial Number [id number] [facility] Serial Number [id number] [facility] Serial Number [id number] [facility] Thresh RA Capture Amplitude (volts) 0.5 V [facility] Thresh RA Capture Duration (ms) 0.4 ms [facility] Thresh RA Sensing Amplitude (mvolts) 0.5 mV [facility] Thresh RV Capture Amplitude (volts) 1 V [facility] Thresh RV Capture Duration (ms) 0.4 ms [facility] Thresh RV Sensing Amplitude (mvolts) 13.375 mV [facility] Tracking Rate (bpm) 120 {beats}/min [facility] No Panel Informationon 06-30 BLANK _ [facility] Implant Date 10/21/2020 [facility] PACEMAKER REMOTE CHECKon AV Delay Adaptive Paced Minimum (ms) 180 ms [facility] AV Delay Adaptive Sensed Minimum (ms) 150 ms [facility] AV Delay Adaptive Status DISABLED [facility] Battery Voltage (volts) 3.03 V [facility] Pavan RA Pacing Amplitude (volts) 1.5 V [facility] Pavan RA Pacing Polarity BI [facility] Pavan RA Pacing Pulse Width (ms) 0.4 ms [facility] [place] Pavan RA Sensing Amplitude (mvolts) 0.3 mV [facility] [place] Pavan RA Sensing Blanking Period (ms) 150 ms [facility] Pavan RA Sensing Polarity BI [facility] Pavan RA Sensing Refractory Period (ms) Auto [facility] Pavan RV Pacing Amplitude (volts) 2.5 V [facility] Pavan RV Pacing Polarity BI [facility] Pavan RV Pacing Pulse Width (ms) 0.4 ms [facility] Pavan RV Sensing Amplitude (mvolts) 0.9 mV [facility] Pavan RV Sensing Blanking Period (ms) 200 ms [facility] Pavan RV Sensing Polarity BI [facility] Hysteresis Rate (bpm) DISABLED [facility] Lead1 Mfg MDT [facility] Lead2 Mfg MDT [facility] Location RV [facility] Location RA [facility] Lower Rate (bpm) 60 {beats}/min [facility] Max Sensor Rate (bmp) 120 {beats}/min [facility] Model [id number] Sania XT DR MRI Cl [facility] Model 3830 SelectSecure MR I SureScan [facility] Model 5076 CapSureFix Novus [facility] PM-Device Mfg MDT [facility] PM-Percent Pacing (A) 53.59 % [facility] PM-Percent Pacing (V) 11.72 % [facility] PM-PMT Intervention ENABLED [facility] PM-PVC Intervention ENABLED [facility] PM-Rate Modulation Acceleration Reaction 30 s [facility] PM-Rate Modulation ADL Rate (bpm) 95 {beats}/min [facility] PM-Rate Modulation Deceleration Exercise [facility] PM-Rate Modulation Barbour 3 [facility] PM-Rate Modulation Threshold Low [facility] RA Bipolar Impedance ohms 456 ohm [facility] RA Unipolar Impedance ohms 304 ohm [facility] RV Bipolar Impedance ohms 437 ohm [facility] RV Unipolar Impedance 323 ohm [facility] Serial Number [id number] [facility] Serial Number [id number] [facility] Serial Number [id number] [facility] Thresh RA Capture Amplitude (volts) 0.5 V [facility] Thresh RA Capture Duration (ms) 0.4 ms [facility] Thresh RA Sensing Amplitude (mvolts) 0.375 mV [facility] Thresh RV Capture Amplitude (volts) 1.125 V [facility] Thresh RV Capture Duration (ms) 0.4 ms [facility] Thresh RV Sensing Amplitude (mvolts) 9.25 mV [facility] Tracking Rate (bpm) 120 {beats}/min [facility] UA DIP, URINE (POC)on 2021 BILIRUBIN UA (POCT) Negative Negative [facility] CLARITY UA (POCT) Clear [facility] COLOR UA (POCT) Yellow [facility] GLUCOSE UA (POCT) Negative Negative mg/dL [facility] HEMOGLOBIN/BLOOD UA (POCT) Negative Negative [facility] KETONE UA (POCT) Negative Negative mg/dL [facility] LEUKOCYTES UA (POCT) Negative Negative [facility] NITRITE UA (POCT) Negative Negative [facility] PH UA (POCT) 5.5 4.5 - 8.0 [facility] Protein Ql (U) 30 mg/dL Abnormal Negative mg/dL [facility] SPECIFIC GRAVITY UA (POCT) 1.020 1.005 - 1.030 [facility] UROBILINOGEN UA (POCT) 0.2 E.U./dL Cat l E.U./dL [facility] CBC W Auto Differential pane l (Bld)on 04-06-2022 Abs Immature Gran 0.03 k/uL <0.10 k/uL [facility] Basophils (Bld) [#/Vol] 0.08 10*3/uL <0.11 k/uL [facility] Basophils/100 WBC (Bld) 1.1 % [facility] Differential cell count method Nom (Bld) Auto [facility] Eosinophils (Bld) [#/Vol] 0.11 10*3/uL <0.46 k/uL [facility] Eosinophils/100 WBC (Bld) 1.5 % [facility] Erythrocyte distribution width (RBC) [Ratio] 19.9 % High 11.5 - 15.0 % [facility] Hematocrit (Bld) [Volume fraction] 31.3 % Low 36.0 - 46.0 % [facility] Hemoglobin (Bld) [Mass/Vol] 9.2 g/dL Low 11.5 - 15.5 g/dL [facility] Immature Gran % 0.4 % [facility] Lymphocytes (Bld) [#/Vol] 2.05 10*3/uL 1.00 - 4.00 k/uL [facility] Lymphocytes/100 WBC (Bld) 27.9 % [facility] MCH (RBC) [Entitic mass] 24.5 pg Low 26.0 - 34.0 pg [facility] MCHC (RBC) [Mass/Vol] 29.4 g/dL Low 30.5 - 36.0 g/dL [facility] MCV (RBC) [Entitic vol] 83.5 fL 80.0 - 100.0 fL [facility] Monocytes (Bld) [#/Vol] 0.93 10*3/uL High <0.87 k/uL [facility] Monocytes/100 WBC (Bld) 12.7 % [facility] Neutrophils (Bld) [#/Vol] 4.14 10*3/uL 1.45 - 7.50 k/uL [facility] Neutrophils/100 WBC (Bld) 56.4 % [facility] Nucleated RBC (Bld) [#/Vol] <0.01 k/uL [facility] Nucleated RBC/100 WBC (Bld) [Ratio] 0.0 /100 WBC [facility] Platelet mean volume (Bld) [Entitic vol] 9.8 fL 9.0 - 12.7 fL [facility] Platelets (Bld) [#/Vol] 266 10*3/uL 150 - 400 k/uL [facility] RBC (Bld) [#/Vol] 3.75 10*6/uL Low 3.90 - 5.2 0 m/uL [facility] WBC (Bld) [#/Vol] 7.34 10*3/uL 3.70 - 11. 00 k/uL [facility] [place] FERRITIN BLDon 04-06-2022 Ferritin [Mass/Vol] 27.1 ng/mL 14.7 - 2 05.1 ng/mL [facility] [place] Iron and Iron binding capaci ty panelon 04-06-2022 Iron [Mass/Vol] 26 ug/dL Low 41 - 186 ug/dL [facility] Iron binding capacity [Mass/Vol] 454 ug/dL High 232 - 386 ug/dL [facility] [place] Iron/TIBC [Molar ratio] 5.7 % Low 15.0 - 57.0 % [facility] No Panel Informationon 03-28 BLANK _ [facility] [place] Implant Date 10/21/2020 [facility] PACEMAKER REMOTE CHECKon AV Delay Adaptive Paced Minimum (ms) 180 ms [facility] AV Delay Adaptive Sensed Minimum (ms) 150 ms [facility] AV Delay Adaptive Status DISABLED [facility] Battery Voltage (volts) 3.03 V [facility] Pavan RA Pacing Amplitude (volts) 1.5 V [facility] Pavan RA Pacing Polarity BI [facility] Pavan RA Pacing Pulse Width (ms) 0.4 ms [facility] [place] Pavan RA Sensing Amplitude (mvolts) 0.3 mV [facility] [place] Pavan RA Sensing Blanking Period (ms) 150 ms [facility] Pavan RA Sensing Polarity BI [facility] Pavan RA Sensing Refractory Period (ms) Auto [facility] Pavan RV Pacing Amplitude (volts) 2 V [facility] Pavan RV Pacing Polarity BI [facility] Pavan RV Pacing Pulse Width (ms) 0.4 ms [facility] [place] Pavan RV Sensing Amplitude (mvolts) 0.9 mV [facility] Pavan RV Sensing Blanking Period (ms) 200 ms [facility] Pavan RV Sensing Polarity BI [facility] Hysteresis Rate (bpm) DISABLED [facility] Lead1 Mfg MDT [facility] Lead2 Mfg MDT [facility] Location RV [facility] Location RA [facility] Lower Rate (bpm) 60 {beats}/min [facility] Max Sensor Rate (bmp) 120 {beats}/min [facility] Model [id number] Sania XT DR MRI Cl [facility] Model 3830 SelectSecure MR I SureScan [facility] Model 5076 CapSureFix Novus [facility] PM-Device Mfg MDT [facility] PM-Percent Pacing (A) 13.82 % [facility] PM-Percent Pacing (V) 9.69 % [facility] PM-PMT Intervention ENABLED [facility] PM-PVC Intervention ENABLED [facility] PM-Rate Modulation Acceleration Reaction 30 s [facility] PM-Rate Modulation ADL Rate (bpm) 95 {beats}/min [facility] PM-Rate Modulation Deceleration Exercise [facility] PM-Rate Modulation Barbour 3 [facility] PM-Rate Modulation Threshold Low [facility] RA Bipolar Impedance ohms 437 ohm [facility] RA Unipolar Impedance ohms 285 ohm [facility] RV Bipolar Impedance ohms 418 ohm [facility] RV Unipolar Impedance 323 ohm [facility] Serial Number [id number] [facility] Serial Number [id number] [facility] Serial Number [id number] [facility] Thresh RA Capture Amplitude (volts) 0.75 V [facility] Thresh RA Capture Duration (ms) 0.4 ms [facility] Thresh RA Sensing Amplitude (mvolts) 0.25 mV [facility] Thresh RV Capture Amplitude (volts) 1 V [facility] Thresh RV Capture Duration (ms) 0.4 ms [facility] Thresh RV Sensing Amplitude (mvolts) 13.375 mV [facility] Tracking Rate (bpm) 120 {beats}/min [facility] ECHO TRANSESOPHAGEALon 03-03 [facility] No Panel Informationon 03-03 BLANK _ [facility] Implant Date 10/21/2020 [facility] CHECKon AV Delay Adaptive Paced Minimum (ms) 180 ms [facility] AV Delay Adaptive Sensed Minimum (ms) 150 ms [facility] AV Delay Adaptive Status DISABLED [facility] Battery Voltage (volts) 3.03 V [facility] Pavan RA Pacing Amplitude (volts) 1.5 V [facility] Pavan RA Pacing Polarity BI [facility] Pavan RA Pacing Pulse Width (ms) 0.4 ms [facility] Pavan RA Sensing Amplitude (mvolts) 0.3 mV [facility] Pavan RA Sensing Blanking Period (ms) 150 ms [facility] Pavan RA Sensing Polarity BI [facility] Pavan RA Sensing Refractory Period (ms) Auto [facility] Pavan RV Pacing Amplitude (volts) 2 V [facility] Pavan RV Pacing Polarity BI [facility] Pavan RV Pacing Pulse Width (ms) 0.4 ms [facility] Pavan RV Sensing Amplitude (mvolts) 0.9 mV [facility] Pavan RV Sensing Blanking Period (ms) 200 ms [facility] Pavan RV Sensing Polarity BI [facility] Hysteresis Rate (bpm) DISABLED [facility] Lead1 Mfg MDT [facility] Lead2 Mfg MDT [facility] Location RV [facility] Location RA [facility] Lower Rate (bpm) 60 {beats}/min [facility] Max Sensor Rate (bmp) 120 {beats}/min [facility] Model [id number] Sania XT DR MRI Cl [facility] Model 3830 SelectSecure MR I SureScan [facility] Model 5076 CapSureFix Novus [facility] Pacemaker Dependent? NO [facility] PM-Device Mfg MDT [facility] PM-Percent Pacing (A) 3.4 % [facility] PM-Percent Pacing (V) 14.6 % [facility] PM-PMT Intervention ENABLED [facility] PM-PVC Intervention ENABLED [facility] PM-Rate Modulation Acceleration Reaction 30 s [facility] PM-Rate Modulation ADL Rate (bpm) 95 {beats}/min [facility] PM-Rate Modulation Deceleration Exercise [facility] PM-Rate Modulation Barbour 3 [facility] PM-Rate Modulation Threshold Low [facility] RA Bipolar Impedance ohms 456 ohm [facility] RA Unipolar Impedance ohms 285 ohm [facility] Rhythm Atrial Fibrillation [facility] RV Bipolar Impedance ohms 437 ohm [facility] RV Unipolar Impedance 342 ohm [facility] Serial Number [id number] [facility] Serial Number [id number] [facility] Serial Number [id number] [facility] Thresh RA Capture Amplitude (volts) 0.75 V [facility] Thresh RA Capture Duration (ms) 0.4 ms [facility] Thresh RA Sensing Amplitude (mvolts) 0.375 mV [facility] Thresh RV Capture Amplitude (volts) 0.875 V [facility] Thresh RV Capture Duration (ms) 0.4 ms [facility] Thresh RV Sensing Amplitude (mvolts) 12.75 mV [facility] Tracking Rate (bpm) 120 {beats}/min [facility] HEMOGLOBIN (HGB)on Hemoglobin (Bld) [Mass/Vol] 8.1 g/dL Low 11.5 - 15.5 g/dL [facility] Hematocrit Auto (Bld) [Volum e fraction]on 02-20-2022 Hematocrit (Bld) [Volume fraction] 26.4 % Low 36.0 - 46.0 % [facility] No Panel Informationon 01-09 BLANK _ [facility] Implant Date 10/21/2020 [facility] CHECKon AV Delay Adaptive Paced Minimum (ms) 180 ms [facility] AV Delay Adaptive Sensed Minimum (ms) 150 ms [facility] AV Delay Adaptive Status DISABLED [facility] Battery Voltage (volts) 3.04 V [facility] Pavan RA Pacing Amplitude (volts) 1.5 V [facility] Pavan RA Pacing Polarity BI [facility] Pavan RA Pacing Pulse Width (ms) 0.4 ms [facility] Pavan RA Sensing Amplitude (mvolts) 0.3 mV [facility] Pavan RA Sensing Blanking Period (ms) 150 ms [facility] Pavan RA Sensing Polarity BI [facility] Pavan RA Sensing Refractory Period (ms) Auto [facility] Pavan RV Pacing Amplitude (volts) 2 V [facility] Pavan RV Pacing Polarity BI [facility] Pavan RV Pacing Pulse Width (ms) 0.4 ms [facility] Pavan RV Sensing Amplitude (mvolts) 0.9 mV [facility] Pavan RV Sensing Blanking Period (ms) 200 ms [facility] Pavan RV Sensing Polarity BI [facility] Hysteresis Rate (bpm) DISABLED [facility] Lead1 Mfg MDT [facility] Lead2 Mfg MDT [facility] Location RV [facility] Location RA [facility] Lower Rate (bpm) 60 {beats}/min [facility] Max Sensor Rate (bmp) 120 {beats}/min [facility] Model [id number] [place] XT DR MRI Cl [facility] Model 3830 SelectSecure MR I SureScan [facility] Model 5076 CapSureFix [facility] Pacemaker Dependent? NO [facility] PM-Device Karlg MDT [facility] PM-Percent Pacing (A) 32.01 % [facility] PM-Percent Pacing (V) 13.19 % [facility] PM-PMT Intervention ENABLED [facility] PM-PVC Intervention ENABLED [facility] PM-Rate Modulation Acceleration Reaction 30 s [facility] PM-Rate Modulation ADL Rate (bpm) 95 {beats}/min [facility] PM-Rate Modulation Deceleration Exercise [facility] PM-Rate Modulation Barbour 3 [facility] PM-Rate Modulation Threshold Low [facility] RA Bipolar Impedance ohms 456 ohm [facility] RA Unipolar Impedance ohms 285 ohm [facility] Rhythm Atrial Fibrillation [facility] RV Bipolar Impedance ohms 437 ohm [facility] RV Unipolar Impedance 342 ohm [facility] Serial Number [id number] [facility] Serial Number [id number] [facility] Serial Number [id number] [facility] Thresh RA Capture Amplitude (volts) 0.75 V [facility] Thresh RA Capture Duration (ms) 0.4 ms [facility] Thresh RA Sensing Amplitude (mvolts) 0.375 mV [facility] Thresh RV Capture Amplitude (volts) 1 V [facility] Thresh RV Capture Duration (ms) 0.4 ms [facility] Thresh RV Sensing Amplitude (mvolts) 13.6 mV [facility] Tracking Rate (bpm) 120 {beats}/min [facility] EGD DIAGNOSTICon 01-02-2022 [facility] CBC panel Auto (Bld)on 12-26 Erythrocyte distribution width (RBC) [Ratio] 16.8 % High 11.5 - 15.0 % [facility] Hematocrit (Bld) [Volume fraction] 28.2 % Low 36.0 - 46.0 % [facility] Hemoglobin (Bld) [Mass/Vol] 8.1 g/dL Low 11.5 - 15.5 g/dL [facility] MCH (RBC) [Entitic mass] 24.5 pg Low 26.0 - 34.0 pg [facility] MCHC (RBC) [Mass/Vol] 28.7 g/dL Low 30.5 - 36.0 g/dL [facility] MCV (RBC) [Entitic vol] 85.5 fL 80.0 - 100.0 fL [facility] Nucleated RBC (Bld) [#/Vol] 10*3/uL <0.01 k/uL [facility] Platelet mean volume (Bld) [Entitic vol] 10.3 fL 9.0 - 12.7 fL [facility] Platelets (Bld) [#/Vol] 248 10*3/uL 150 - 400 k/uL [facility] RBC (Bld) [#/Vol] 3.30 10*6/uL Low 3.90 - 5.2 0 m/uL [facility] WBC (Bld) [#/Vol] 10.54 10*3/uL 3.70 - 11 .00 k/uL [facility] CBC panel Auto (Bld)on 12-15 Erythrocyte distribution width (RBC) [Ratio] 15.7 % High 11.5 - 15.0 % [facility] Hematocrit (Bld) [Volume fraction] 31.0 % Low 36.0 - 46.0 % [facility] Hemoglobin (Bld) [Mass/Vol] 9.3 g/dL Low 11.5 - 15.5 g/dL [facility] MCH (RBC) [Entitic mass] 24.4 pg Low 26.0 - 34.0 pg [facility] MCHC (RBC) [Mass/Vol] 30.0 g/dL Low 30.5 - 36.0 g/dL [facility] MCV (RBC) [Entitic vol] 81.4 fL 80.0 - 100.0 fL [facility] Nucleated RBC (Bld) [#/Vol] 10*3/uL <0.01 k/uL [facility] Platelet mean volume (Bld) [Entitic vol] 10.0 fL 9.0 - 12.7 fL [facility] Platelets (Bld) [#/Vol] 273 10*3/uL 150 - 400 k/uL [facility] RBC (Bld) [#/Vol] 3.81 10*6/uL Low 3.90 - 5.2 0 m/uL [facility] WBC (Bld) [#/Vol] 9.78 10*3/uL 3.70 - 11. 00 k/uL [facility] HbA1c (Bld)on 12-15-2021 Average glucose Estimated from glycated hemoglobin (Bld) [Mass/Vol] 157 mg/dL [facility] HbA1c (d) [Mass fraction] 7.1 % High 4.3 - 5.6 % [facility] Lipid 1996 panelon 2 Cholesterol [Mass/Vol] 121 mg/dL <200 mg/dL [facility] Cholesterol in HDL [Mass/Vol] 43 mg/dL >39 mg/dL [facility] Cholesterol in LDL [Mass/Vol] 59 mg/dL <100 mg/dL [facility] Cholesterol in LDL/Cholesterol in HDL [Mass ratio] 1.37 {ratio} <2.54 [facility] Cholesterol in VLDL [Mass/Vol] 19 mg/dL <30 mg/dL [facility] Cholesterol non HDL [Mass/Vol] 78 mg/dL <130 mg/dL [facility] Cholesterol.total/Gin sterol in HDL [Mass ratio] 2.81 {ratio} <5.10 [facility] Fasting Time 12 hrs [facility] Triglyceride [Mass/Vol] 93 mg/dL <150 mg/dL [facility] XR HIP GENERAL 3V PELV/AP/LA T LEFTon 12-15-2021 [facility] XR Pelvis and Hip - left AP and Lateral frogon 12-15-2021 IMPRESSION: NEGATIVE HIP. Classroom Instructor: PSCB Transcribe Date/Time: Dec 15 2021 12:36P [...] relevant examinations available for comparison within the [facility] Imaging Archives. RESULT: Supine radiograph of the [...] relevant examinations available for comparison within the [facility] Imaging Archives. RESULT: Supine radiograph of the pelvis as well as AP and frogleg views of the left hip demonstrate the bony pelvic ring intact. The hips are bilaterally symmetric without fracture or dislocation. No acute bony process is noted. The soft tissues demonstrate aortoiliac calcification IMPRESSION IMPRESSION: NEGATIVE HIP. Classroom Instructor: PSCB Transcribe Date/Time: Dec 15 2021 12:36P Dictated by : JUAN MOSCOSO MD This examination was interpreted and the report reviewed and electronically signed by: JUAN MOSCOSO MD on Dec 15 2021 12:38PM EST [facility] Radiology Study observation (narrative) Chris Miranda XR Pelvis and Hip - left AP and Lateral frogOrdered By: Ccf Provider on 12-15-2021 [facility] No Panel Informationon 12-13 BLANK _ [facility] Implant Date 10/21/2020 [facility] PACEMAKER REMOTE CHECKon AV Delay Adaptive Paced Minimum (ms) 180 ms [facility] AV Delay Adaptive Sensed Minimum (ms) 150 ms [facility] AV Delay Adaptive Status DISABLED [facility] Battery Voltage (volts) 3.04 V [facility] Pavan RA Pacing Amplitude (volts) 1.5 V [facility] Pavan RA Pacing Polarity BI [facility] Pavan RA Pacing Pulse Width (ms) 0.4 ms [facility] Pavan RA Sensing Amplitude (mvolts) 0.3 mV [facility] Pavan RA Sensing Blanking Period (ms) 150 ms [facility] Pavan RA Sensing Polarity BI [facility] Pavan RA Sensing Refractory Period (ms) Auto [facility] Pavan RV Pacing Amplitude (volts) 2 V [facility] Pavan RV Pacing Polarity BI [facility] Pavan RV Pacing Pulse Width (ms) 0.4 ms [facility] Pavan RV Sensing Amplitude (mvolts) 0.9 mV [facility] Pavan RV Sensing Blanking Period (ms) 200 ms [facility] Pavan RV Sensing Polarity BI [facility] Hysteresis Rate (bpm) DISABLED [facility] Lead1 Mfg MDT [facility] Lead2 Mfg MDT [facility] Location RV [facility] Location RA [facility] Lower Rate (bpm) 60 {beats}/min [facility] Max Sensor Rate (bmp) 120 {beats}/min [facility] Model [id number] [place] XT DR MRI Cl [facility] Model 3830 SelectSecure MR I SureScan [facility] Model 5076 CapSureFix [employer] [facility] PM-Device Mfg MDT [facility] PM-Percent Pacing (A) 0.2 % [facility] PM-Percent Pacing (V) 19.48 % [facility] PM-PMT Intervention ENABLED [facility] PM-PVC Intervention ENABLED [facility] PM-Rate Modulation Acceleration Reaction 30 s [facility] PM-Rate Modulation ADL Rate (bpm) 95 {beats}/min [facility] PM-Rate Modulation Deceleration Exercise [facility] PM-Rate Modulation Barbour 3 [facility] PM-Rate Modulation Threshold Low [facility] RA Bipolar Impedance ohms 475 ohm [facility] RA Unipolar Impedance ohms 285 ohm [facility] RV Bipolar Impedance ohms 418 ohm [facility] RV Unipolar Impedance 323 ohm [facility] Serial Number [id number] [facility] Serial Number [id number] [facility] Serial Number [id number] [facility] Thresh RA Capture Amplitude (volts) 0.75 V [facility] Thresh RA Capture Duration (ms) 0.4 ms [facility] Thresh RA Sensing Amplitude (mvolts) 0.5 mV [facility] Thresh RV Capture Amplitude (volts) 0.875 V [facility] Thresh RV Capture Duration (ms) 0.4 ms [facility] Thresh RV Sensing Amplitude (mvolts) 12.625 mV [facility] Tracking Rate (bpm) 120 {beats}/min [facility] No Panel Informationon 09-26 BLANK _ [facility] Implant Date 10/21/2020 [facility] PACEMAKER REMOTE CHECKon AV Delay Adaptive Paced Minimum (ms) 180 ms [facility] AV Delay Adaptive Sensed Minimum (ms) 150 ms [facility] AV Delay Adaptive Status DISABLED [facility] Battery Voltage (volts) 3.06 V [facility] Pavan RA Pacing Amplitude (volts) 1.5 V [facility] Pavan RA Pacing Polarity BI [facility] Pavan RA Pacing Pulse Width (ms) 0.4 ms [facility] Pavan RA Sensing Amplitude (mvolts) 0.3 mV [facility] Pavan RA Sensing Blanking Period (ms) 150 ms [facility] Pavan RA Sensing Polarity BI [facility] Pavan RA Sensing Refractory Period (ms) Auto [facility] Pavan RV Pacing Amplitude (volts) 2 V [facility] Pavan RV Pacing Polarity BI [facility] Pavan RV Pacing Pulse Width (ms) 0.4 ms [facility] Pavan RV Sensing Amplitude (mvolts) 0.9 mV [facility] Pavan RV Sensing Blanking Period (ms) 200 ms [facility] Pavan RV Sensing Polarity BI [facility] Hysteresis Rate (bpm) DISABLED [facility] Lead1 Mfg MDT [facility] Lead2 Mfg MDT [facility] Location RV [facility] Location RA [facility] Lower Rate (bpm) 60 {beats}/min [facility] Max Sensor Rate (bmp) 120 {beats}/min [facility] Model [id number] [place] XT DR MRI Cl [facility] Model 3830 SelectSecure MR I SureScan [facility] Model 5076 CapShawthorn centerFix [employer] [facility] PM-Device Mfg MDT [facility] PM-Percent Pacing (A) 0.09 % [facility] PM-Percent Pacing (V) 23.44 % [facility] PM-PMT Intervention ENABLED [facility] PM-PVC Intervention ENABLED [facility] PM-Rate Modulation Acceleration Reaction 30 s [facility] PM-Rate Modulation ADL Rate (bpm) 95 {beats}/min [facility] PM-Rate Modulation Deceleration Exercise [facility] PM-Rate Modulation [place]bour 3 [facility] PM-Rate Modulation Threshold Low [facility] RA Bipolar Impedance ohms 532 ohm [facility] RA Unipolar Impedance ohms 304 ohm [facility] RV Bipolar Impedance ohms 418 ohm [facility] RV Unipolar Impedance 342 ohm [facility] Serial Number [id number] [facility] Serial Number [id number] [facility] [facility] Serial Number [id number] [facility] Thresh RA Capture Amplitude (volts) 0.75 V [facility] Thresh RA Capture Duration (ms) 0.4 ms [facility] Thresh RA Sensing Amplitude (mvolts) 0.625 mV [facility] Thresh RV Capture Amplitude (volts) 0.875 V [facility] Thresh RV Capture Duration (ms) 0.4 ms [facility] Thresh RV Sensing Amplitude (mvolts) 12 mV [facility] Tracking Rate (bpm) 120 {beats}/min [facility] PROGRESSon 03-08-2019 PROGRESS HNO ID: [id number] Author: Sheree Logan (Rt) Manolo Elaine Service: Radiology Author Type: Carbide Tool Die Maker Type: Progress Notes Filed: 03/08/2019 2:55 PM [...] RT Echo March 08, 2019 2:55 PM [facility] XR CHEST 2V FRONTAL/LATon XR CHEST [...] mm nodule right lung base. 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 However, the mobile MRI scanner was not capable of performing the needed MR angiographic sequences. All charges related to the examination was canceled. IMPRESSION: Nondiagnostic MRA study as noted with all charges canceled. The study is to be rescheduled at [facility] main [place]. Normal [facility] Vital Signs Date Time Vital Sign Value Performing Clinician Jabari rogers 05-10-2025 11:34-0500 Body temperature 97.4 [degF] Deysi Collazo FOUNDRY WORKER-C Work Phone: [facility] 05-10-2025 11:34-0500 Diastolic blood pressure 97 mm[Hg] Deysi Collazo NP-C Work Phone: [facility] 05-10-2025 11:34-0500 Heart rate 84 /min Deysi Collazo NP-C Work Phone: [facility] 05-10-2025 11:34-0500 Respiratory rate 18 /min Deysi Haagen FOUNDRY WORKER-C Work Phone: 2(917)134-086012 [place] [address] 05-10-2025 11:34-0500 Systolic blood pressure 149 mm[Hg] Deysi Haagen FOUNDRY WORKER-C Work Phone: 2(737)872-111412 [place] [address] 05-07-2025 07:36-0500 Body mass index (BMI) [Ratio] 24 kg/m2 Deysi Haagen FOUNDRY WORKER-C Work Phone: 7(293)319-793512 [place] [address] 05-07-2025 07:36-0500 Body weight 61.68 kg Deysi Haagen FOUNDRY WORKER-C Work Phone: 0(045)248-310812 [place] [address] 05-07-2025 07:36-0500 Diastolic blood pressure 78 mm[Hg] Deysi Haagen FOUNDRY WORKER-C Work Phone: 5(087)787-698112 [place] [address] 05-07-2025 07:36-0500 Heart rate 86 /min Deysi Haagen FOUNDRY WORKER-C Work Phone: 9(098)513-823812 [place] [address] 05-07-2025 07:36-0500 Respiratory rate 18 /min Deysi Haagen FOUNDRY WORKER-C Work Phone: 3(004)779-715212 [place] [address] 05-07-2025 07:36-0500 SaO2% (BldA) [Mass fraction] 98 % Deysi Haagen FOUNDRY WORKER-C Work Phone: 7(358)177-732012 [place] [address] 05-07-2025 07:36-0500 Systolic blood pressure 137 mm[Hg] Deysi Haagen FOUNDRY WORKER-C Work Phone: 3(821)451-870312 [place] [address] 05-03-2025 11:15-0400 Body temperature 98.1 [degF] Deysi Haagen FOUNDRY WORKER-C Work Phone: 6(371)881-629612 [place] [address] 05-03-2025 11:15-0400 Diastolic blood pressure 81 mm[Hg] Deysi Haagen FOUNDRY WORKER-C Work Phone: 4(680)510-308012 [place] [address] 05-03-2025 11:15-0400 Heart rate 98 /min Deysi Haagen FOUNDRY WORKER-C Work Phone: 4(986)703-655712 [place] [address] 05-03-2025 11:15-0400 Respiratory rate 17 /min Deysi Haagen FOUNDRY WORKER-C Work Phone: 9(220)096-875012 [place] [address] 05-03-2025 11:15-0400 Systolic blood pressure 148 mm[Hg] Deysi Haagen FOUNDRY WORKER-C Work Phone: 5(852)685-305112 [place] [address] 04-24-2025 15:30-0400 Body height 160.02 cm Deysi Haagen FOUNDRY WORKER-C Work Phone: 2(863)809-456112 [place] [address] 04-24-2025 15:30-0400 Body mass index (BMI) [Ratio] 24.3 kg/m2 Deysi Haagen FOUNDRY WORKER-C Work Phone: 3(271)327-124812 [place] [address] 04-24-2025 15:30-0400 Body temperature 97.5 [degF] Deysi Haagen FOUNDRY WORKER-C Work Phone: 8(267)257-621312 [place] [address] 04-24-2025 15:30-0400 Body weight 62.36 kg Deysi Haagen FOUNDRY WORKER-C Work Phone: 8(981)646-607712 [place] [address] 04-24-2025 15:30-0400 Diastolic blood pressure 73 mm[Hg] Deysi Haagen FOUNDRY WORKER-C Work Phone: 5(924)830-728112 [place] [address] 04-24-2025 15:30-0400 Heart rate 83 /min Deysi Haagen FOUNDRY WORKER-C Work Phone: 9(979)435-923512 [place] [address] 04-24-2025 15:30-0400 Respiratory rate 16 /min Deysi Haagen FOUNDRY WORKER-C Work Phone: 6(433)383-598012 [place] [address] 04-24-2025 15:30-0400 SaO2% (BldA) [Mass fraction] 95 % Deysi Haagen FOUNDRY WORKER-C Work Phone: 8(539)445-030812 [place] [address] 04-24-2025 15:30-0400 Systolic blood pressure 152 mm[Hg] Deysi Haagen FOUNDRY WORKER-C Work Phone: 6(239)802-502912 [place] [address] 03-29-2025 11:05-0400 Body temperature 98.2 [degF] Deysi Haagen FOUNDRY WORKER-C Work Phone: 1(146)026-408012 [place] [address] 03-29-2025 11:05-0400 Diastolic blood pressure 67 mm[Hg] Deysi Haagen FOUNDRY WORKER-C Work Phone: 4(580)074-301112 [place] [address] 03-29-2025 11:05-0400 Heart rate 89 /min Deysi Haagen FOUNDRY WORKER-C Work Phone: 1(456)901-527212 [place] [address] 03-29-2025 11:05-0400 Respiratory rate 16 /min Deysi Haagen FOUNDRY WORKER-C Work Phone: 3(458)333-106512 [place] [address] 03-29-2025 11:05-0400 SaO2% (BldA) [Mass fraction] 100 % Deysi Haagen FOUNDRY WORKER-C Work Phone: 7(364)624-792612 [place] [address] 03-29-2025 11:05-0400 Systolic blood pressure 145 mm[Hg] Deysi Haagen FOUNDRY WORKER-C Work Phone: 5(690)922-727312 [place] [address] 03-27-2025 16:35-0400 Body temperature 96.9 [degF] Deysi Haagen FOUNDRY WORKER-C Work Phone: 5(307)232-132612 [place] [address] 03-27-2025 16:35-0400 Diastolic blood pressure 48 mm[Hg] Deysi Haagen FOUNDRY WORKER-C Work Phone: 5(694)685-025912 [place] [address] 03-27-2025 16:35-0400 Heart rate 74 /min Deysi Haagen FOUNDRY WORKER-C Work Phone: 8(869)949-416212 [place] [address] 03-27-2025 16:35-0400 Respiratory rate 16 /min Deysi Haagen FOUNDRY WORKER-C Work Phone: 8(749)783-174312 [place] [address] 03-27-2025 16:35-0400 SaO2% (BldA) [Mass fraction] 100 % Deysi Haagen FOUNDRY WORKER-C Work Phone: 0(617)949-039112 [place] [address] 03-27-2025 16:35-0400 Systolic blood pressure 144 mm[Hg] Deysi Haagen FOUNDRY WORKER-C Work Phone: 6(007)346-812212 [place] [address] 03-27-2025 14:21-0400 Body height 160.02 cm Deysi Haagen FOUNDRY WORKER-C Work Phone: 7(232)087-959112 [place] [address] 03-27-2025 14:21-0400 Body mass index (BMI) [Ratio] 23.3 kg/m2 Deysi Haagen FOUNDRY WORKER-C Work Phone: 8(316)093-272412 [place] [address] 03-27-2025 14:21-0400 Body weight 59.87 kg Deysi Haagen FOUNDRY WORKER-C Work Phone: 7(143)333-348812 [place] [address] 03-22-2025 03:56-0400 Body temperature 98 [degF] Deysi Haagen FOUNDRY WORKER-C Work Phone: 2(919)984-793012 [place] [address] 03-22-2025 03:56-0400 Diastolic blood pressure 65 mm[Hg] Deysi Haagen FOUNDRY WORKER-C Work Phone: 1(581)879-164012 [place] [address] 03-22-2025 03:56-0400 Heart rate 81 /min Deysi Haagen FOUNDRY WORKER-C Work Phone: 7(683)399-926912 [place] [address] 03-22-2025 03:56-0400 Respiratory rate 18 /min Deysi Haagen FOUNDRY WORKER-C Work Phone: 6(215)922-939412 [place] [address] 03-22-2025 03:56-0400 SaO2% (BldA) [Mass fraction] 99 % Deysi Haagen FOUNDRY WORKER-C Work Phone: 2(162)348-405312 [place] [address] 03-22-2025 03:56-0400 Systolic blood pressure 161 mm[Hg] Deysi Haagen FOUNDRY WORKER-C Work Phone: 2(592)830-714912 [place] [address] 03-22-2025 03:36-0400 Body height 160.02 cm Deysi Haagen FOUNDRY WORKER-C Work Phone: 8(669)113-668512 [place] [address] 03-22-2025 03:36-0400 Body mass index (BMI) [Ratio] 24.9 kg/m2 Deysi Haagen FOUNDRY WORKER-C Work Phone: 8(001)891-344412 [place] [address] 03-22-2025 03:36-0400 Body weight 63.8 kg Deysi Haagen FOUNDRY WORKER-C Work Phone: 8(836)082-169112 [place] [address] 03-20-2025 12:20-0400 Body temperature 97.2 [degF] Deysi Haagen FOUNDRY WORKER-C Work Phone: 0(699)334-670612 [place] [address] 03-20-2025 12:20-0400 Diastolic blood pressure 56 mm[Hg] Deysi Haagen FOUNDRY WORKER-C Work Phone: 8(672)887-854012 [place] [address] 03-20-2025 12:20-0400 Heart rate 82 /min Deysi Haagen FOUNDRY WORKER-C Work Phone: 8(363)186-621212 [place] [address] 03-20-2025 12:20-0400 Respiratory rate 16 /min Deysi Haagen FOUNDRY WORKER-C Work Phone: 0(326)775-346212 [place] [address] 03-20-2025 12:20-0400 SaO2% (BldA) [Mass fraction] 100 % Deysi Haagen FOUNDRY WORKER-C Work Phone: 5(317)846-895312 [place] [address] 03-20-2025 12:20-0400 Systolic blood pressure 125 mm[Hg] Deysi Haagen FOUNDRY WORKER-C Work Phone: 5(903)020-272712 [place] [address] 03-20-2025 09:24-0400 Body mass index (BMI) [Ratio] 22.8 kg/m2 Deysi Haagen FOUNDRY WORKER-C Work Phone: 3(242)609-170812 [place] [address] 03-20-2025 09:24-0400 Body weight 58.51 kg Deysi Haagen FOUNDRY WORKER-C Work Phone: 0(034)072-725912 [place] [address] 03-15-2025 11:36-0400 Body temperature 96.4 [degF] Deysi Haagen FOUNDRY WORKER-C Work Phone: 0(678)512-960212 [place] [address] 03-15-2025 11:36-0400 Diastolic blood pressure 57 mm[Hg] Deysi Haagen FOUNDRY WORKER-C Work Phone: 7(557)011-171212 [place] [address] 03-15-2025 11:36-0400 Heart rate 87 /min Deysi Haagen FOUNDRY WORKER-C Work Phone: 3(704)097-920612 [place] [address] 03-15-2025 11:36-0400 Respiratory rate 14 /min Deysi Haagen FOUNDRY WORKER-C Work Phone: 6(082)444-421012 [place] [address] 03-15-2025 11:36-0400 Systolic blood pressure 133 mm[Hg] Deysi Haagen FOUNDRY WORKER-C Work Phone: 2(849)383-012130 [place] [address] 03-13-2025 14:06-0400 Body height 160.02 cm Deysi Collazo FOUNDRY WORKER-C Work Phone: 9(979)345-831830 [place] [address] 03-13-2025 14:06-0400 Body mass index (BMI) [Ratio] 23.6 kg/m2 Deysi Haagen FOUNDRY WORKER-C Work Phone: 0(754)986-766412 [place] [address] 03-13-2025 14:06-0400 Body temperature 96.6 [degF] Deysi Haagen FOUNDRY WORKER-C Work Phone: 1(748)613-157612 [place] [address] 03-13-2025 14:06-0400 Body weight 60.55 kg Deysi Haagen FOUNDRY WORKER-C Work Phone: 5(778)470-453712 [place] [address] 03-13-2025 14:06-0400 Diastolic blood pressure 71 mm[Hg] Deysi Haagen FOUNDRY WORKER-C Work Phone: 4(381)547-730512 [place] [address] 03-13-2025 14:06-0400 Heart rate 91 /min Deysi Haagen FOUNDRY WORKER-C Work Phone: 5(936)221-997812 [place] [address] 03-13-2025 14:06-0400 Respiratory rate 16 /min Deysi Haagen FOUNDRY WORKER-C Work Phone: 2(696)687-644012 [place] [address] 03-13-2025 14:06-0400 SaO2% (BldA) [Mass fraction] 93 % Deysi Haagen FOUNDRY WORKER-C Work Phone: 6(133)262-071612 [place] [address] 03-13-2025 14:06-0400 Systolic blood pressure 152 mm[Hg] Deysi Haagen FOUNDRY WORKER-C Work Phone: 0(717)353-298512 [place] [address] 03-08-2025 09:53-0400 Body temperature 96.8 [degF] Deysi Haagen FOUNDRY WORKER-C Work Phone: 3(502)262-152312 [place] [address] 03-08-2025 09:53-0400 Diastolic blood pressure 40 mm[Hg] Deysi Haagen FOUNDRY WORKER-C Work Phone: 1(214)238-987012 [place] [address] 03-08-2025 09:53-0400 Heart rate 75 /min Deysi Haagen FOUNDRY WORKER-C Work Phone: [facility] 03-08-2025 09:53-0400 Respiratory rate 18 /min Deysi Haagen FOUNDRY WORKER-C Work Phone: [facility] 03-08-2025 09:53-0400 Systolic blood pressure 145 mm[Hg] Deysi Haagen FOUNDRY WORKER-C Work Phone: [facility] 03-01-2025 09:12-0400 Body temperature 97.1 [degF] Deysi Haagen FOUNDRY WORKER-C Work Phone: 0(402)551-029412 [place] [address] 03-01-2025 09:12-0400 Diastolic blood pressure 65 mm[Hg] Deysi Haagen FOUNDRY WORKER-C Work Phone: 3(514)327-428712 [place] [address] 03-01-2025 09:12-0400 Heart rate 79 /min Deysi Haagen FOUNDRY WORKER-C Work Phone: 1(827)611-099112 [place] [address] 03-01-2025 09:12-0400 Respiratory rate 18 /min Deysi Haagen FOUNDRY WORKER-C Work Phone: 4(715)198-176112 [place] [address] 03-01-2025 09:12-0400 Systolic blood pressure 125 mm[Hg] Deysi Haagen FOUNDRY WORKER-C Work Phone: 2(042)004-353512 [place] [address] 02-16-2025 17:24-0400 Body temperature 98 [degF] Deysi Haagen FOUNDRY WORKER-C Work Phone: 8(213)812-438812 [place] [address] 02-16-2025 17:24-0400 Diastolic blood pressure 72 mm[Hg] Deysi Haagen FOUNDRY WORKER-C Work Phone: 7(224)860-752812 [place] [address] 02-16-2025 17:24-0400 Heart rate 75 /min Deysi Haagen FOUNDRY WORKER-C Work Phone: 7(686)851-903912 [place] [address] 02-16-2025 17:24-0400 Respiratory rate 19 /min Deysi Haagen FOUNDRY WORKER-C Work Phone: 0(607)553-082912 [place] [address] 02-16-2025 17:24-0400 SaO2% (BldA) [Mass fraction] 100 % Deysi Haagen FOUNDRY WORKER-C Work Phone: 9(458)176-432312 [place] [address] 02-16-2025 17:24-0400 Systolic blood pressure 154 mm[Hg] Deysi Haagen FOUNDRY WORKER-C Work Phone: 2(561)985-609812 [place] [address] 02-16-2025 12:09-0400 Body mass index (BMI) [Ratio] 25.8 kg/m2 Deysi Haagen FOUNDRY WORKER-C Work Phone: 7(601)431-161612 [place] [address] 02-16-2025 12:09-0400 Body weight 66.22 kg Deysi Haagen FOUNDRY WORKER-C Work Phone: 5(882)237-413112 [place] [address] 02-16-2025 11:26-0400 Body height 160.02 cm Deysi Haagen FOUNDRY WORKER-C Work Phone: 7(456)350-162712 [place] [address] 02-16-2025 11:26-0400 Inhaled oxygen flow rate 2 L/min Deysi Haagen FOUNDRY WORKER-C Work Phone: 9(994)206-980212 [place] [address] 02-05-2025 08:57-0400 Body height 160.02 cm Deysi Haagen FOUNDRY WORKER-C Work Phone: 3(891)676-138012 [place] [address] 02-05-2025 08:57-0400 Body mass index (BMI) [Ratio] 24.7 kg/m2 Deysi Haagen FOUNDRY WORKER-C Work Phone: 2(067)367-500612 [place] [address] 02-05-2025 08:57-0400 Body weight 63.5 kg Deysi Haagen FOUNDRY WORKER-C Work Phone: 1(716)183-776612 [place] [address] 02-05-2025 08:57-0400 Diastolic blood pressure 64 mm[Hg] Deysi Haagen FOUNDRY WORKER-C Work Phone: 2(410)606-207612 [place] [address] 02-05-2025 08:57-0400 Heart rate 77 /min Deysi Haagen FOUNDRY WORKER-C Work Phone: 2(707)587-672512 [place] [address] 02-05-2025 08:57-0400 Respiratory rate 16 /min Deysi Haagen FOUNDRY WORKER-C Work Phone: 1(268)919-182812 [place] [address] 02-05-2025 08:57-0400 Systolic blood pressure 143 mm[Hg] Deysi Haagen FOUNDRY WORKER-C Work Phone: 4(272)604-238030 [place] [address] 01-11-2025 10:44-0400 Heart rate 71 /min Deysi Haagen FOUNDRY WORKER-C Work Phone: 8(142)774-748112 [place] [address] 01-11-2025 08:59-0400 Body temperature 98.1 [degF] Deysi Haagen FOUNDRY WORKER-C Work Phone: 7(888)394-715612 [place] [address] 01-11-2025 08:59-0400 Diastolic blood pressure 55 mm[Hg] Deysi Haagen FOUNDRY WORKER-C Work Phone: 6(466)920-471912 [place] [address] 01-11-2025 08:59-0400 Respiratory rate 18 /min Deysi Haagen FOUNDRY WORKER-C Work Phone: 9(514)584-986512 [place] [address] 01-11-2025 08:59-0400 SaO2% (BldA) [Mass fraction] 100 % Deysi Haagen FOUNDRY WORKER-C Work Phone: 8(972)851-505412 [place] [address] 01-11-2025 08:59-0400 Systolic blood pressure 153 mm[Hg] Deysi Haagen FOUNDRY WORKER-C Work Phone: 1(270)866-767312 [place] [address] 01-11-2025 05:50-0400 Body mass index (BMI) [Ratio] 28 kg/m2 Deysi Haagen FOUNDRY WORKER-C Work Phone: 9(195)141-931112 [place] [address] 01-11-2025 05:50-0400 Body weight 71.8 kg Deysi Haagen FOUNDRY WORKER-C Work Phone: 2(021)279-094612 [place] [address] 01-08-2025 10:03-0400 Body height 160.02 cm Deysi Haagen FOUNDRY WORKER-C Work Phone: 0(223)273-819812 [place] [address] 01-07-2025 17:11-0400 Diastolic blood pressure 66 mm[Hg] Deysi Haagen FOUNDRY WORKER-C Work Phone: 3(636)608-974912 [place] [address] 01-07-2025 17:11-0400 Heart rate 75 /min Deysi Haagen FOUNDRY WORKER-C Work Phone: 5(387)830-196312 [place] [address] 01-07-2025 17:11-0400 Respiratory rate 16 /min Deysi Haagen FOUNDRY WORKER-C Work Phone: [facility] 01-07-2025 17:11-0400 SaO2% (BldA) [Mass fraction] 100 % Deysi Collazo FOUNDRY WORKER-C Work Phone: [facility] 01-07-2025 17:11-0400 Systolic blood pressure 154 mm[Hg] Deysigladys Collazo FOUNDRY WORKER-C Work Phone: [facility] 01-07-2025 16:28-0400 Body temperature 97.7 [degF] Deysigladys Collazo FOUNDRY WORKER-C Work Phone: [facility] 01-07-2025 13:27-0400 Body mass index (BMI) [Ratio] 27.5 kg/m2 Deysi Hadon FOUNDRY WORKER-C Work Phone: [facility] 01-07-2025 13:27-0400 Body weight 70.48 kg Deysi Collazo FOUNDRY WORKER-C Work Phone: [facility] 01-07-2025 12:47-0400 Body height 160.02 cm Deysi Hadon FOUNDRY WORKER-C Work Phone: [facility] 01-01-2025 10:29-0400 Body height 157.5 cm Carla Burdick MD Work Phone: [facility] 01-01-2025 10:29-0400 Body mass index (BMI) [Ratio] 27.18 kg/m2 Carla Burdick MD Work Phone: [facility] 01-01-2025 10:29-0400 Body weight 67.41 kg Carla Burdick MD Work Phone: [facility] 01-01-2025 10:29-0400 Diastolic blood pressure 60 mm[Hg] Carla Burdick MD Work Phone: [facility] 01-01-2025 10:29-0400 Heart rate 84 /min Carla Burdick MD Work Phone: [facility] 01-01-2025 10:29-0400 Respiratory rate 18 /min Carla Burdick MD Work Phone: [facility] 01-01-2025 10:29-0400 SaO2% (BldA) [Mass fraction] 100 % Carla Burdick MD Work Phone: [facility] 01-01-2025 10:29-0400 Systolic blood pressure 156 mm[Hg] Carla Burdick MD Work Phone: [facility] 12-20-2024 08:29-0400 Body mass index (BMI) [Ratio] 27.18 kg/m2 Lars Silva DO Work Phone: [facility] 12-20-2024 08:29-0400 Body weight 67.4 kg Lars Silva DO Work Phone: [facility] 12-20-2024 08:29-0400 Diastolic blood pressure 75 mm[Hg] Lars Silva DO Work Phone: [facility] 12-20-2024 08:29-0400 Heart rate 77 /min Lars Silva DO Work Phone: [facility] 12-20-2024 08:29-0400 SaO2% (BldA) [Mass fraction] 100 % Lars Silva DO Work Phone: [facility] 12-20-2024 08:29-0400 Systolic blood pressure 154 mm[Hg] Lars Silva DO Work Phone: [facility] 12-19-2024 11:38-0400 Diastolic blood pressure 54 mm[Hg] Albin Aurin OPTICAL MANAGER.GRAVEDIGGER Work Phone: [facility] Comment on above: post IV lasix 12-19-2024 11:38-0400 Systolic blood pressure 157 mm[Hg] Albin Aurin OPTICAL MANAGER.GRAVEDIGGER Work Phone: [facility] Comment on above: post IV lasix 12-19-2024 10:56-0400 Body mass index (BMI) [Ratio] 26.34 kg/m2 Albin Aurin OPTICAL MANAGER.GRAVEDIGGER Work Phone: [facility] 12-19-2024 10:56-0400 Body weight 65.32 kg Albin Gu OPTICAL MANAGER.GRAVEDIGGER Work Phone: [facility] 12-19-2024 10:56-0400 Heart rate 79 /min Albin Gu OPTICAL MANAGER.GRAVEDIGGER Work Phone: [facility] 12-19-2024 10:56-0400 SaO2% (BldA) [Mass fraction] 99 % Albin Gu OPTICAL MANAGER.GRAVEDIGGER Work Phone: [facility] 11-20-2024 08:06-0400 Body height 157.5 cm Carla Burdick MD Work Phone: [facility] 11-20-2024 08:06-0400 Body mass index (BMI) [Ratio] 26.3 kg/m2 Carla Burdick MD Work Phone: [facility] 11-20-2024 08:06-0400 Body weight 65.23 kg Carla Burdick MD Work Phone: [facility] 11-20-2024 08:06-0400 Diastolic blood pressure 62 mm[Hg] Carla Burdick MD Work Phone: [facility] 11-20-2024 08:06-0400 Heart rate 84 /min Carla Burdick MD Work Phone: [facility] 11-20-2024 08:06-0400 Respiratory rate 12 /min Carla Burdick MD Work Phone: [facility] 11-20-2024 08:06-0400 SaO2% (BldA) [Mass fraction] 99 % Carla Burdick MD Work Phone: [facility] 11-20-2024 08:06-0400 Systolic blood pressure 154 mm[Hg] Carla Burdick MD Work Phone: [facility] 11-06-2024 15:03-0400 Body height 157.5 cm Carla Burdick MD Work Phone: [facility] 11-06-2024 15:03-0400 Body mass index (BMI) [Ratio] 27.8 kg/m2 Carla Burdick MD Work Phone: [facility] 11-06-2024 15:03-0400 Body weight 68.95 kg Carla Burdick MD Work Phone: [facility] 11-06-2024 15:03-0400 Diastolic blood pressure 54 mm[Hg] Carla Burdick MD Work Phone: [facility] 11-06-2024 15:03-0400 Heart rate 68 /min Carla Burdick MD Work Phone: [facility] 11-06-2024 15:03-0400 Respiratory rate 12 /min Carla Burdick MD Work Phone: [facility] 11-06-2024 15:03-0400 SaO2% (BldA) [Mass fraction] 100 % Carla Burdick MD Work Phone: [facility] 11-06-2024 15:03-0400 Systolic blood pressure 134 mm[Hg] Carla Burdick MD Work Phone: [facility] 11-03-2024 10:06-0400 Diastolic blood pressure 44 mm[Hg] Albin Aurin OPTICAL MANAGER.GRAVEDIGGER Work Phone: [facility] 11-03-2024 10:06-0400 Systolic blood pressure 121 mm[Hg] Albin Aurin OPTICAL MANAGER.GRAVEDIGGER Work Phone: [facility] 11-03-2024 08:56-0400 Body mass index (BMI) [Ratio] 26.89 kg/m2 Albin Aurin OPTICAL MANAGER.GRAVEDIGGER Work Phone: [facility] 11-03-2024 08:56-0400 Body weight 66.68 kg Albin Aurin OPTICAL MANAGER.GRAVEDIGGER Work Phone: [facility] 11-03-2024 08:56-0400 Heart rate 66 /min Albin Aurin OPTICAL MANAGER.GRAVEDIGGER Work Phone: [facility] 11-03-2024 08:56-0400 SaO2% (BldA) [Mass fraction] 100 % Albin Aurin OPTICAL MANAGER.GRAVEDIGGER Work Phone: [facility] 10-31-2024 11:09-0400 Body mass index (BMI) [Ratio] 25.97 kg/m2 Shaye Domingo APRN.GRAVEDIGGER Work Phone: [facility] 10-31-2024 11:09-0400 Body weight 64.41 kg Shaye Domingo APRN.GRAVEDIGGER Work Phone: [facility] 10-31-2024 11:09-0400 Diastolic blood pressure 68 mm[Hg] Shaye Domingo APRN.GRAVEDIGGER Work Phone: [facility] 10-31-2024 11:09-0400 Heart rate 84 /min Shaye Domingo OPTICAL MANAGER.GRAVEDIGGER Work Phone: [facility] 10-31-2024 11:09-0400 Systolic blood pressure 147 mm[Hg] hSaye Domingo OPTICAL MANAGER.GRAVEDIGGER Work Phone: [facility] 04-07-2024 09:30-0400 Body mass index (BMI) [Ratio] 25.06 kg/m2 Albin Gu APRN.GRAVEDIGGER Work Phone: [facility] 04-07-2024 09:30-0400 Body weight 62.14 kg Albin Gu OPTICAL MANAGER.GRAVEDIGGER Work Phone: [facility] 04-07-2024 09:30-0400 Diastolic blood pressure 47 mm[Hg] Albin uG OPTICAL MANAGER.GRAVEDIGGER Work Phone: [facility] 04-07-2024 09:30-0400 Heart rate 91 /min Albin Gu APRN.GRAVEDIGGER Work Phone: [facility] 04-07-2024 09:30-0400 SaO2% (BldA) [Mass fraction] 98 % Albin Quinteroin OPTICAL MANAGER.GRAVEDIGGER Work Phone: [facility] 04-07-2024 09:30-0400 Systolic blood pressure 142 mm[Hg] Albin Gu OPTICAL MANAGER.GRAVEDIGGER Work Phone: [facility] 01-17-2024 09:50-0400 Body height 157.5 cm Carla Burdick MD Work Phone: [facility] 01-17-2024 09:50-0400 Body mass index (BMI) [Ratio] 26.92 kg/m2 Carla Burdick MD Work Phone: [facility] 01-17-2024 09:50-0400 Body weight 66.77 kg Carla Burdick MD Work Phone: [facility] 01-17-2024 09:50-0400 Diastolic blood pressure 59 mm[Hg] Carla Burdick MD Work Phone: [facility] 01-17-2024 09:50-0400 Heart rate 64 /min Carla Burdick MD Work Phone: [facility] 01-17-2024 09:50-0400 SaO2% (BldA) [Mass fraction] 99 % Carla Burdick MD Work Phone: [facility] 01-17-2024 09:50-0400 Systolic blood pressure 157 mm[Hg] Carla Burdick MD Work Phone: [facility] 12-07-2023 11:46-0400 Diastolic blood pressure 76 mm[Hg] Deysi Haagen OPTICAL MANAGER.GRAVEDIGGER Work Phone: [facility] 12-07-2023 11:46-0400 Heart rate 68 /min Deysi Haagen OPTICAL MANAGER.GRAVEDIGGER Work Phone: [facility] 12-07-2023 11:46-0400 Respiratory rate 16 /min Deysi Haagen OPTICAL MANAGER.GRAVEDIGGER Work Phone: [facility] 12-07-2023 11:46-0400 SaO2% (BldA) [Mass fraction] 97 % Deysi Haagen OPTICAL MANAGER.GRAVEDIGGER Work Phone: [facility] 12-07-2023 11:46-0400 Systolic blood pressure 128 mm[Hg] Deysi Haagen OPTICAL MANAGER.GRAVEDIGGER Work Phone: [facility] 11-25-2023 10:42-0400 Diastolic blood pressure 37 mm[Hg] Albin Gu OPTICAL MANAGER.GRAVEDIGGER Work Phone: [facility] 11-25-2023 10:42-0400 Systolic blood pressure 160 mm[Hg] Albin Quinteroin OPTICAL MANAGER.GRAVEDIGGER Work Phone: [facility] 11-25-2023 10:00-0400 Body mass index (BMI) [Ratio] 26.89 kg/m2 Albin Aurin OPTICAL MANAGER.GRAVEDIGGER Work Phone: [facility] 11-25-2023 10:00-0400 Body weight 66.68 kg Albin Aurin OPTICAL MANAGER.GRAVEDIGGER Work Phone: [facility] 11-25-2023 10:00-0400 Heart rate 60 /min Albin Aurin OPTICAL MANAGER.GRAVEDIGGER Work Phone: [facility] 11-25-2023 10:00-0400 SaO2% (BldA) [Mass fraction] 98 % Albin Quinteroin OPTICAL MANAGER.GRAVEDIGGER Work Phone: [facility] 11-22-2023 09:09-0400 Body mass index (BMI) [Ratio] 27.44 kg/m2 Deysi Collazo OPTICAL MANAGER.GRAVEDIGGER Work Phone: [facility] 11-22-2023 09:09-0400 Body weight 68.04 kg Deysi Collazo OPTICAL MANAGER.GRAVEDIGGER Work Phone: [facility] 11-22-2023 09:09-0400 Diastolic blood pressure 76 mm[Hg] Deysi Haagen OPTICAL MANAGER.GRAVEDIGGER Work Phone: [facility] 11-22-2023 09:09-0400 Heart rate 67 /min Deysi Haagen OPTICAL MANAGER.GRAVEDIGGER Work Phone: [facility] 11-22-2023 09:09-0400 Respiratory rate 16 /min Deysi Haagen OPTICAL MANAGER.GRAVEDIGGER Work Phone: [facility] 11-22-2023 09:09-0400 SaO2% (BldA) [Mass fraction] 98 % Deysi Collazo OPTICAL MANAGER.GRAVEDIGGER Work Phone: [facility] 11-22-2023 09:09-0400 Systolic blood pressure 128 mm[Hg] Deysi Haagen OPTICAL MANAGER.GRAVEDIGGER Work Phone: [facility] 11-08-2023 16:36-0400 Body mass index (BMI) [Ratio] 29.98 kg/m2 Bere Boykin OPTICAL MANAGER.GRAVEDIGGER Work Phone: [facility] 11-08-2023 16:36-0400 Body weight 73.17 kg Bere Boykin OPTICAL MANAGER.C FOUNDRY WORKER Work Phone: [facility] 11-08-2023 16:36-0400 Diastolic blood pressure 70 mm[Hg] Bere Boykin OPTICAL MANAGER.GRAVEDIGGER Work Phone: [facility] 11-08-2023 16:36-0400 Heart rate 94 /min Bere Boykin OPTICAL MANAGER.C FOUNDRY WORKER Work Phone: [facility] 11-08-2023 16:36-0400 SaO2% (BldA) [Mass fraction] 95 % Bere Boykin OPTICAL MANAGER.GRAVEDIGGER Work Phone: [facility] 11-08-2023 16:36-0400 Systolic blood pressure 156 mm[Hg] Bere Boykin OPTICAL MANAGER.GRAVEDIGGER Work Phone: [facility] 11-04-2023 08:08-0400 Body mass index (BMI) [Ratio] 29.74 kg/m2 NA Le PA-C Work Phone: [facility] 11-04-2023 08:08-0400 Body weight 72.58 kg NA Le PA-C Work Phone: [facility] 11-04-2023 08:08-0400 Diastolic blood pressure 70 mm[Hg] NA Le PA-C Work Phone: [facility] 11-04-2023 08:08-0400 Heart rate 88 /min NA Le PA-C Work Phone: [facility] 11-04-2023 08:08-0400 Respiratory rate 20 /min NA Le PA-C Work Phone: [facility] 11-04-2023 08:08-0400 SaO2% (BldA) [Mass fraction] 97 % NA Le PA-C Work Phone: [facility] 11-04-2023 08:08-0400 Systolic blood pressure 130 mm[Hg] NA Le PA-C Work Phone: [facility] 10-18-2023 13:11-0400 Diastolic blood pressure 76 mm[Hg] NA Le PA-C Work Phone: [facility] 10-18-2023 13:11-0400 Systolic blood pressure 144 mm[Hg] NA Le PA-C Work Phone: [facility] 10-18-2023 13:04-0400 Body weight 75.48 kg NA Le PA-C Work Phone: [facility] 10-18-2023 13:04-0400 Heart rate 90 /min NA Le PA-C Work Phone: [facility] 10-18-2023 13:04-0400 Respiratory rate 20 /min NA Le PA-C Work Phone: [facility] 10-18-2023 13:04-0400 SaO2% (BldA) [Mass fraction] 99 % NA Le PA-C Work Phone: [facility] 10-14-2023 14:40-0400 Diastolic blood pressure 73 mm[Hg] Lars Silva DO Work Phone: [facility] 10-14-2023 14:40-0400 Heart rate 85 /min Lars Silva DO Work Phone: [facility] 10-14-2023 14:40-0400 SaO2% (BldA) [Mass fraction] 97 % Lars Silva DO Work Phone: [facility] 10-14-2023 14:40-0400 Systolic blood pressure 153 mm[Hg] Lars Silva DO Work Phone: [facility] 07-05-2023 11:19-0500 Body temperature 98.49 [degF] Bijan Cole MD Work Phone: [facility] 07-05-2023 11:19-0500 Body weight 71.31 kg Bijan Cole MD Work Phone: [facility] 07-05-2023 11:19-0500 Diastolic blood pressure 80 mm[Hg] Bijan Cole MD Work Phone: [facility] 07-05-2023 11:19-0500 Heart rate 90 /min Bijan Cole MD Work Phone: [facility] 07-05-2023 11:19-0500 Respiratory rate 20 /min Bijan Cole MD Work Phone: [facility] 07-05-2023 11:19-0500 SaO2% (BldA) [Mass fraction] 98 % Bijan Cole MD Work Phone: [facility] 07-05-2023 11:19-0500 Systolic blood pressure 158 mm[Hg] Bijan Cole MD Work Phone: [facility] 01-07-2023 08:44-0400 Body weight 65.77 kg NA Le PA-C Work Phone: [facility] 01-07-2023 08:44-0400 Diastolic blood pressure 72 mm[Hg] NA Le PA-C Work Phone: [facility] 01-07-2023 08:44-0400 Heart rate 70 /min NA Le PA-C Work Phone: [facility] 01-07-2023 08:44-0400 Respiratory rate 16 /min NA Le PA-C Work Phone: [facility] 01-07-2023 08:44-0400 SaO2% (BldA) [Mass fraction] 96 % NA Le PA-C Work Phone: [facility] 01-07-2023 08:44-0400 Systolic blood pressure 136 mm[Hg] NA Le PA-C Work Phone: [facility] 10-06-2022 09:13-0400 Body weight 66.22 kg NA Le PA-C Work Phone: [facility] 10-06-2022 09:13-0400 Diastolic blood pressure 68 mm[Hg] NA Le PA-C Work Phone: [facility] 10-06-2022 09:13-0400 Heart rate 81 /min NA Le PA-C Work Phone: [facility] 10-06-2022 09:13-0400 Respiratory rate 18 /min NA Le PA-C Work Phone: [facility] 10-06-2022 09:13-0400 SaO2% (BldA) [Mass fraction] 96 % NA Le PA-C Work Phone: [facility] 10-06-2022 09:13-0400 Systolic blood pressure 144 mm[Hg] NA Le PA-C Work Phone: [facility] 09-28-2022 09:15-0400 Body height 156.2 cm Carla Budrick MD Work Phone: [facility] 09-28-2022 09:15-0400 Body weight 68.4 kg Carla Burdick MD Work Phone: [facility] 09-28-2022 09:15-0400 Diastolic blood pressure 74 mm[Hg] Carla Burdick MD Work Phone: [facility] 09-28-2022 09:15-0400 Heart rate 78 /min Carla Burdick MD Work Phone: [facility] 09-28-2022 09:15-0400 Systolic blood pressure 128 mm[Hg] Carla Burdick MD Work Phone: [facility] 07-07-2022 08:56-0500 Body weight 65.32 kg NA Le PA-C Work Phone: [facility] 07-07-2022 08:56-0500 Diastolic blood pressure 62 mm[Hg] NA Le PA-C Work Phone: [facility] 07-07-2022 08:56-0500 Heart rate 74 /min NA Le PA-C Work Phone: [facility] 07-07-2022 08:56-0500 Respiratory rate 16 /min NA Le PA-C Work Phone: [facility] 07-07-2022 08:56-0500 SaO2% (BldA) [Mass fraction] 97 % NA Le PA-C Work Phone: [facility] 07-07-2022 08:56-0500 Systolic blood pressure 148 mm[Hg] NA Le PA-C Work Phone: [facility] 05-14-2022 09:27-0500 Body temperature 98.91 [degF] Sonny Lund MD Work Phone: [facility] 05-14-2022 09:27-0500 Body weight 68.49 kg Sonny Lund MD Work Phone: [facility] 05-14-2022 09:27-0500 Diastolic blood pressure 72 mm[Hg] Sonny Lund MD Work Phone: [facility] 05-14-2022 09:27-0500 Heart rate 84 /min Sonny Lund MD Work Phone: [facility] 05-14-2022 09:27-0500 Respiratory rate 16 /min Sonny Lund MD Work Phone: [facility] 05-14-2022 09:27-0500 SaO2% (BldA) [Mass fraction] 98 % Sonny Lund MD Work Phone: [facility] 05-14-2022 09:27-0500 Systolic blood pressure 147 mm[Hg] Sonny Lund MD Work Phone: [facility] 04-28-2022 09:09-0400 Body temperature 97.3 [degF] Treatment Wstr Work Phone: [facility] 04-28-2022 09:09-0400 Diastolic blood pressure 62 mm[Hg] Treatment Wstr Work Phone: [facility] 04-28-2022 09:09-0400 Heart rate 83 /min Treatment Wstr Work Phone: [facility] 04-28-2022 09:09-0400 Systolic blood pressure 122 mm[Hg] Treatment Wstr Work Phone: [facility] 04-22-2022 10:54-0400 Body temperature 97.11 [degF] Treatment Wstr Work Phone: [facility] 04-22-2022 10:54-0400 Diastolic blood pressure 68 mm[Hg] Treatment Wstr Work Phone: [facility] 04-22-2022 10:54-0400 Heart rate 102 /min Treatment Wstr Work Phone: [facility] 04-22-2022 10:54-0400 Systolic blood pressure 135 mm[Hg] Treatment Wstr Work Phone: [facility] 04-20-2022 09:30-0400 Body temperature 97.9 [degF] Treatment Wstr Work Phone: [facility] 04-20-2022 09:30-0400 Diastolic blood pressure 61 mm[Hg] Treatment Wstr Work Phone: [facility] 04-20-2022 09:30-0400 Heart rate 98 /min Treatment Wstr Work Phone: [facility] 04-20-2022 09:30-0400 Systolic blood pressure 130 mm[Hg] Treatment Wstr Work Phone: [facility] 04-17-2022 15:31-0400 Body temperature 98.1 [degF] Treatment Wstr Work Phone: [facility] 04-17-2022 15:31-0400 Diastolic blood pressure 66 mm[Hg] Treatment Wstr Work Phone: [facility] 04-17-2022 15:31-0400 Heart rate 97 /min Treatment Wstr Work Phone: [facility] 04-17-2022 15:31-0400 SaO2% (BldA) [Mass fraction] 99 % Treatment Wstr Work Phone: [facility] 04-17-2022 15:31-0400 Systolic blood pressure 137 mm[Hg] Treatment Wstr Work Phone: [facility] 04-09-2022 11:33-0400 Body height 161.3 cm Brayan Chicas MD Work Phone: [facility] 04-09-2022 11:33-0400 Body weight 67.59 kg Brayan Chicas MD Work Phone: [facility] 04-06-2022 10:44-0400 Body weight 66.68 kg NA Le PA-C Work Phone: [facility] 04-06-2022 10:44-0400 Diastolic blood pressure 72 mm[Hg] NA Le PA-C Work Phone: [facility] 04-06-2022 10:44-0400 Heart rate 95 /min NA Le PA-C Work Phone: [facility] 04-06-2022 10:44-0400 Respiratory rate 24 /min NA Le PA-C Work Phone: [facility] 04-06-2022 10:44-0400 SaO2% (BldA) [Mass fraction] 99 % NA Le PA-C Work Phone: [facility] 04-06-2022 10:44-0400 Systolic blood pressure 148 mm[Hg] NA Le PA-C Work Phone: [facility] 03-30-2022 08:49-0400 Body weight 65.32 kg Carla Burdick MD Work Phone: [facility] 03-30-2022 08:49-0400 Diastolic blood pressure 64 mm[Hg] Carla Burdick MD Work Phone: [facility] 03-30-2022 08:49-0400 Heart rate 90 /min Carla Burdick MD Work Phone: [facility] 03-30-2022 08:49-0400 SaO2% (BldA) [Mass fraction] 100 % Carla Burdick MD Work Phone: [facility] 03-30-2022 08:49-0400 Systolic blood pressure 144 mm[Hg] Carla Burdick MD Work Phone: [facility] 03-19-2022 11:07-0400 Body weight 69.85 kg NA Le PA-C Work Phone: [facility] 03-19-2022 11:07-0400 Diastolic blood pressure 66 mm[Hg] NA Le PA-C Work Phone: [facility] 03-19-2022 11:07-0400 Heart rate 112 /min NA Le PA-C Work Phone: [facility] 03-19-2022 11:07-0400 Respiratory rate 24 /min NA Le PA-C Work Phone: [facility] 03-19-2022 11:07-0400 SaO2% (BldA) [Mass fraction] 97 % NA Le PA-C Work Phone: [facility] 03-19-2022 11:07-0400 Systolic blood pressure 148 mm[Hg] NA Le PA-C Work Phone: [facility] 03-03-2022 13:45-0400 Body height 160 cm Radha Brian OPTICAL MANAGER.GRAVEDIGGER Work Phone: [facility] 03-03-2022 13:45-0400 Body weight 63.5 kg Radha Brian OPTICAL MANAGER.GRAVEDIGGER Work Phone: [facility] 03-03-2022 13:45-0400 Diastolic blood pressure 72 mm[Hg] Radha Brian OPTICAL MANAGER.GRAVEDIGGER Work Phone: [facility] 03-03-2022 13:45-0400 Heart rate 98 /min Radha Brian OPTICAL MANAGER.GRAVEDIGGER Work Phone: [facility] 03-03-2022 13:45-0400 Systolic blood pressure 141 mm[Hg] Radha Brian OPTICAL MANAGER.GRAVEDIGGER Work Phone: [facility] 03-03-2022 13:00-0400 Diastolic blood pressure 62 mm[Hg] [facility] 03-03-2022 13:00-0400 Heart rate 105 /min [facility] 03-03-2022 13:00-0400 SaO2% (BldA) [Mass fraction] 94 % [facility] 03-03-2022 13:00-0400 Systolic blood pressure 129 mm[Hg] [facility] 03-03-2022 12:50-0400 Respiratory rate 12 /min [facility] 03-03-2022 10:56-0400 Body temperature 97.5 [degF] [facility] 02-20-2022 09:31-0400 Body weight 64.86 kg NA Le PA-C Work Phone: [facility] 02-20-2022 09:31-0400 Diastolic blood pressure 78 mm[Hg] NA Le PA-C Work Phone: [facility] 02-20-2022 09:31-0400 Heart rate 116 /min NA Le PA-C Work Phone: [facility] 02-20-2022 09:31-0400 Respiratory rate 16 /min NA Le PA-C Work Phone: [facility] 02-20-2022 09:31-0400 SaO2% (BldA) [Mass fraction] 100 % NA Le PA-C Work Phone: [facility] 02-20-2022 09:31-0400 Systolic blood pressure 132 mm[Hg] NA Le PA-C Work Phone: [facility] 01-16-2022 10:26-0400 Body temperature 98.49 [degF] NA Le PA-C Work Phone: [facility] 01-16-2022 10:26-0400 Body weight 64.41 kg NA Le PA-C Work Phone: [facility] 01-16-2022 10:26-0400 Diastolic blood pressure 72 mm[Hg] NA Le PA-C Work Phone: [facility] 01-16-2022 10:26-0400 Heart rate 92 /min NA Le PA-C Work Phone: [facility] 01-16-2022 10:26-0400 Respiratory rate 16 /min NA Le PA-C Work Phone: [facility] 01-16-2022 10:26-0400 SaO2% (BldA) [Mass fraction] 98 % NA El PA-C Work Phone: [facility] 01-16-2022 10:26-0400 Systolic blood pressure 138 mm[Hg] NA Le PA-C Work Phone: [facility] 01-09-2022 14:25-0400 Diastolic blood pressure 66 mm[Hg] Emilia Diallo MD Work Phone: [facility] 01-09-2022 14:25-0400 Heart rate 95 /min Emilia Diallo MD Work Phone: [facility] 01-09-2022 14:25-0400 SaO2% (BldA) [Mass fraction] 99 % Emilia Diallo MD Work Phone: [facility] 01-09-2022 14:25-0400 Systolic blood pressure 133 mm[Hg] Emilia Diallo MD Work Phone: [facility] 01-02-2022 11:15-0400 Diastolic blood pressure 60 mm[Hg] Chai Encinas MD Work Phone: [facility] 01-02-2022 11:15-0400 Heart rate 89 /min Chai Encinas MD Work Phone: [facility] 01-02-2022 11:15-0400 SaO2% (BldA) [Mass fraction] 97 % Chai Encinas MD Work Phone: [facility] 01-02-2022 11:15-0400 Systolic blood pressure 134 mm[Hg] Chai Encinas MD Work Phone: [facility] 01-02-2022 11:00-0400 Respiratory rate 20 /min Chai Encinas MD Work Phone: [facility] 01-02-2022 10:42-0400 Body temperature 97.9 [degF] Chai Encinas MD Work Phone: [facility] 01-02-2022 08:59-0400 Body height 160 cm Chai Encinas MD Work Phone: [facility] 01-02-2022 08:59-0400 Body weight 65.77 kg Chai Encinas MD Work Phone: [facility] 01-01-2022 09:45-0400 Body height 160 cm Chai Encinas MD Work Phone: [facility] 01-01-2022 09:45-0400 Body temperature 97 [degF] Chai Encinas MD Work Phone: [facility] 01-01-2022 09:45-0400 Body weight 65.77 kg Chai Encinas MD Work Phone: [facility] 01-01-2022 09:45-0400 Diastolic blood pressure 52 mm[Hg] Chai Encinas MD Work Phone: [facility] 01-01-2022 09:45-0400 Heart rate 100 /min Chai Encinas MD Work Phone: [facility] 01-01-2022 09:45-0400 SaO2% (BldA) [Mass fraction] 98 % Chai Encinas MD Work Phone: [facility] 01-01-2022 09:45-0400 Systolic blood pressure 122 mm[Hg] Chai Encinas MD Work Phone: [facility] 12-30-2021 13:16-0400 Body temperature 96.9 [degF] [facility] Work Phone: 12-30-2021 13:16-0400 Diastolic blood pressure 54 mm[Hg] [facility] Work Phone: 12-30-2021 13:16-0400 Heart rate 73 /min [facility] Work Phone: 12-30-2021 13:16-0400 Respiratory rate 16 /min [facility] Work Phone: 12-30-2021 13:16-0400 SaO2% (BldA) [Mass fraction] 97 % [facility] Work Phone: 12-30-2021 13:16-0400 Systolic blood pressure 113 mm[Hg] [facility] Work Phone: 12-30-2021 08:17-0400 Body height 160.02 cm [facility] Work Phone: 12-15-2021 09:08-0400 Body temperature 98.2 [degF] NA Le PA-C Work Phone: [facility] 12-15-2021 09:08-0400 Body weight 66.04 kg NA Le PA-C Work Phone: [facility] 12-15-2021 09:08-0400 Diastolic blood pressure 64 mm[Hg] NA Le PA-C Work Phone: [facility] 12-15-2021 09:08-0400 Heart rate 97 /min NA Le PA-C Work Phone: [facility] 12-15-2021 09:08-0400 Respiratory rate 18 /min NA Le PA-C Work Phone: [facility] 12-15-2021 09:08-0400 SaO2% (BldA) [Mass fraction] 99 % NA Le PA-C Work Phone: [facility] 12-15-2021 09:08-0400 Systolic blood pressure 118 mm[Hg] NA Le PA-C Work Phone: [facility] 11-26-2021 09:54-0400 Body height 160 cm Na Ramirez APRN.CN P Work Phone: [facility] 11-26-2021 09:54-0400 Body weight 65.77 kg Na Ramirez APRN.CN P Work Phone: [facility] 01-19-2019 10:25-0400 BMI (Body Mass Index) 28.62 kg/m2 [facility] 01-19-2019 10:25-0400 Body weight 72.12 kg [facility] 01-19-2019 10:25-0400 BP Diastolic 64 mm[Hg] [facility] 01-19-2019 10:25-0400 BP Systolic 134 mm[Hg] [facility] 01-19-2019 10:25-0400 Height 158.8 cm [facility] 01-19-2019 10:25-0400 Pulse (Heart Rate) 100 /min [facility] 01-19-2019 10:25-0400 Pulse Oximetry 99 % [facility] 01-19-2019 10:25-0400 Respiratory Rate 16 /min [facility] Encounters Encounter Date Encounter Type Care Provider Facility Start: 05-10-2025 ambulatory Vincent Chi Mark [facility] Start: 05-07-2025 End: 05-07-2025 ambulatory Vincent Chi Mark Facility:[facility] Start: 05-03-2025 ambulatory Vincent Chi Mark [facility] Start: 05-03-2025 End: 05-04-2025 ambulatory Vincent Chi Mark Facility:[facility] Start: 05-02-2025 End: 05-02-2025 ambulatory Vincent Chi Mark Facility:[facility] Start: 04-24-2025 End: 04-24-2025 Dr. Ric Noriega MD -[facility] Work Phone: Start: 04-24-2025 End: 04-24-2025 ambulatory Deysi Collazo FOUNDRY WORKER-C Work Phone: -[facility] Start: 04-22-2025 End: 04-22-2025 ambulatory Vincent Chi Mark Facility:[facility] Start: 04-22-2025 End: 04-22-2025 Dr. Yaniv Masters MD -[facility] Work Phone: Start: 04-19-2025 Dr. Javi Abrams -[facility] Start: 04-12-2025 ambulatory Vincent Chi Mark [facility] Start: 04-12-2025 Dr. Ebony Cerrato MD -[facility] Work Phone: Start: 04-05-2025 ambulatory Vincent Chi Mark [facility] Start: 04-05-2025 Dr. Ebony Cerrato MD -[facility] Work Phone: Start: 04-05-2025 Dr. Ebony Cerrato [facility] Work Phone: Start: 04-02-2025 End: 04-02-2025 ambulatory Deysi Haagen FOUNDRY WORKER-C Work Phone: -[facility]atory [facility] Fl[facility] Start: 04-02-2025 End: 04-02-2025 Dr. Vincent Flores MD -[facility] Start: 04-02-2025 End: 04-02-2025 ambulatory [facility] Facility:[facility] Start: 03-29-2025 End: 04-03-2025 ambulatory Deysi Haagen FOUNDRY WORKER-C Work Phone: [facility] Start: 03-29-2025 End: 04-03-2025 Dr. Ebony Cerrato MD [facility] Work Phone: Start: 03-27-2025 Dr. Ric rodriguez MD -[facility] Start: 03-22-2025 End: 03-22-2025 Deysi Haagen FOUNDRY WORKER-C Work Phone: -Emergency Department Work Phone: Start: 03-22-2025 End: 03-22-2025 Emergency department patient visit Deysi Haagen FOUNDRY WORKER-C Work Phone: -Emergency Department Start: 03-20-2025 Dr. Ric rodriguez MD -[facility] Start: 03-15-2025 ambulatory Vincent Chi Mark [facility] Start: 03-15-2025 Dr. Ebony Cerrato MD -[facility] Work Phone: Start: 03-13-2025 End: 03-13-2025 Dr. Ric Noriega MD -[facility] Work Phone: Start: 03-13-2025 End: 03-13-2025 ambulatory Deysi Haagen FOUNDRY WORKER-C Work Phone: -[facility] Start: 03-09-2025 ambulatory Vincent Chi Mark Facility:[facility] Start: 03-09-2025 End: 03-09-2025 ambulatory Deysi Haagen FOUNDRY WORKER-C Work Phone: -Laboratory Start: 03-09-2025 End: 03-09-2025 Dr. Vincent Flores MD -Laboratory Work Phone: Start: 03-08-2025 End: 03-09-2025 ambulatory Vincent Chi Mark Facility:[facility] Start: 03-08-2025 Dr. Ebony Cerrato MD -[facility] Work Phone: Start: 03-08-2025 Dr. Ebony Cerrato MD -[facility] Work Phone: Start: 03-02-2025 End: 03-02-2025 ambulatory Deysigladys Collazo FOUNDRY WORKER-C Work Phone: -Laboratory Phy [facility] 3rd Flr Start: 03-02-2025 End: 03-02-2025 Dr. Vincent Flores MD -[facility] Fl[facility] Start: 03-01-2025 ambulatory Vincent Chi Mark [facility] Start: 03-01-2025 Dr. Ebony Cerrato MD -[facility] Work Phone: Start: 03-01-2025 End: 03-04-2025 Dr. Ebony Cerrato [facility] Work Phone: Start: 03-01-2025 End: 03-04-2025 ambulatory Deysi Haagen FOUNDRY WORKER-C Work Phone: -[facility] Start: 02-27-2025 End: 02-27-2025 ambulatory Deysi Haagen FOUNDRY WORKER-C Work Phone: -Laboratory Phy [facility] 3rd Flr Start: 02-27-2025 End: 02-27-2025 Dr. Vincent Flores MD -[facility] Fl[facility] Start: 02-27-2025 End: 02-27-2025 ambulatory [facility] Facility:[facility] Start: 02-21-2025 End: 02-21-2025 ambulatory Deysi Haagen FOUNDRY WORKER-C Work Phone: -Laboratory Phy Office 3rd Flr Start: 02-21-2025 End: 02-21-2025 Dr. Vincent Flores MD -Laboratory Phy [facility] 3rd Flr Start: 02-21-2025 End: 02-21-2025 ambulatory [facility] Facility:[facility] Start: 02-16-2025 End: 02-16-2025 Dr. Magdy Pang MD -Emergency Department Work Phone: Start: 02-16-2025 End: 02-16-2025 Emergency department patient visit Deysi Haagen FOUNDRY WORKER-C Work Phone: -Emergency Department Work Phone: Start: 02-13-2025 End: 02-13-2025 ambulatory Deysi Haagen FOUNDRY WORKER-C Work Phone: -Laboratory Start: 02-13-2025 End: 02-13-[address] Vincent Flores MD -Laboratory Work Phone: Start: 02-13-2025 End: 02-13-2025 Dr. Vincent Flores MD -Laboratory Work Phone: Start: 02-13-2025 End: 02-13-2025 ambulatory Vincent Cas Mark Facility:[facility] Start: 02-08-2025 End: 02-08-2025 ambulatory Deysi Haagen FOUNDRY WORKER-C Work Phone: -[facility] Start: 02-08-2025 End: 02-08-2025 Patient encounter procedure Pau Davis -[facility] Work Phone: Start: 02-08-2025 End: 02-08-2025 Dr. Yaniv Masters MD -[facility] Work Phone: Start: 02-05-2025 End: 02-05-[address] Juan Diego Huynh MD -[facility] Work Phone: Start: 02-05-2025 End: 02-05-2025 Dr. Juan Diego Huynh MD -[facility] Work Phone: Start: 02-05-2025 End: 02-05-2025 ambulatory Deysi Copeagen FOUNDRY WORKER-C Work Phone: -[facility] Start: 02-05-2025 End: 02-05-2025 ambulatory Vincent Chi Mark Facility:[facility] Start: 02-01-2025 End: 02-01-2025 ambulatory Deysi Hadon FOUNDRY WORKER-C Work Phone: -Laboratory Phy [facility] 3rd Flr Start: 02-01-2025 End: 02-01-[address] Vincent Flores MD -Laboratory [facility] Fl[facility] Start: 02-01-2025 End: 02-01-2025 Dr. Vincent Flores MD -Laboratory Phy [facility]rd Fl[facility] Start: 02-01-2025 End: 02-01-2025 ambulatory Vincent Chi Mark Facility:[facility] Start: 01-26-2025 End: 01-30-2025 Refill Carla Burdick MD Work Phone: Cardiology Comment on above: Refill Request Start: 01-23-2025 End: 01-23-2025 ambulatory Deysi Hadon FOUNDRY WORKER-C Work Phone: -Laboratory Start: 01-23-2025 End: 01-23-[address] Jeremy Mcgarry MD -Laboratory Work Phone: Start: 01-23-2025 End: 01-23-2025 Dr. Jeremy Mcgarry MD -Laboratory Work Phone: Start: 01-23-2025 End: 01-23-2025 ambulatory Vincent Chi Mark Facility:[facility] Start: 01-11-2025 Non-patient / Non-visit Dr. Beryl Stovall DO [facility] Work Phone: Start: 01-11-2025 Dr. Dianne sapp [facility] Work Phone: Start: 01-10-2025 Non-patient / Non-visit Dr. Beryl metzger [facility] Work Phone: Start: 01-10-2025 Dr. Dianne sapp [facility] Work Phone: Start: 01-09-2025 Non-patient / Non-visit Dr. Beryl metzger [facility] Work Phone: Start: 01-09-2025 Dr. Dianne sapp [facility] Work Phone: Start: 01-08-2025 Non-patient / Non-visit Dr. Beryl metzger [facility] Work Phone: Start: 01-08-2025 Dr. Dianne sapp [facility] Work Phone: Start: 01-08-2025 ambulatory [facility] Facility :[facility] Start: 01-08-2025 Non-patient / Non-visit Dr. Jose UGARTE [facility] Start: 01-08-2025 Dr. Yaniv Masters MD [facility] Start: 01-08-2025 ambulatory Carla Suarez ty:[facility] Start: 01-08-2025 Non-patient / Non-visit Dr. Abundio wells MD -[facility] Start: 01-08-2025 Dr. Abundio Turcios MD [facility] Start: 01-07-2025 End: 01-11-2025 ambulatory Radha Heller Facility:[facility] Start: 01-07-2025 End: 01-11-2025 Evaluation and [...] Start: 01-01-2025 End: 01-01-2025 ambulatory CARLA BURDICK Facility:[facility] Start: 12-26-2024 End: 12-26-2024 Orders Only Albin Gu APRN.GRAVEDIGGER Work Phone: Cardiology Comment on above: Returning Patient's Call Start: 12-20-2024 End: 02-19-2025 Follow-up encounter Deysi Collazo APRN.CNP Work Phone: [facility] Start: 12-20-2024 End: 12-20-2024 Patient encounter procedure Lars Silva DO Work Phone: Vascular Surgery Comment on above: Superior mesenteric artery stenosis (HCC) (Primary Dx) Start: 12-20-2024 End: 12-20-2024 ambulatory LARS SILVA Facility:[facility] Start: 12-19-2024 End: 12-19-2024 Patient encounter procedure Albin Gu APRN.CNP Work Phone: Cardiology Comment on above: Chronic diastolic co ngestive heart failure (HCC) (Primary Dx); Primary hypertension; SSS (sick sinus syndrome) (HCC); Longstanding persistent atrial fibrillation (HCC) Start: 12-19-2024 End: 12-19-2024 ambulatory ALBIN GU Facility:[facility] Start: 12-13-2024 End: 12-13-2024 Telephone encounter Deysi Collazo APRN.CNP Work Phone: [facility] Comment on above: Transition Of Care Start: 12-11-2024 End: 12-11-2024 Telephone encounter Deysi Collazo APRN.GRAVEDIGGER Work Phone: [address] [place] [address] Start: 12-10-2024 End: 12-12-2024 Evaluation and management of inpatient [facility] Facility:[facility] Start: 12-01-2024 End: 12-01-2024 ambulatory CARLA BURDICK Facility:[facility] Start: 11-20-2024 End: 11-20-2024 Patient encounter [...] Start: 11-20-2024 End: 11-20-2024 ambulatory CARLA BURDICK Facility:[facility] Start: 11-15-2024 End: 11-15-2024 Follow-up encounter Carla Burdick MD Work Phone: [facility]iology [place] Start: 11-13-2024 End: 11-13-2024 ambulatory [facility] Facility:[facility] Start: 11-06-2024 End: 11-06-2024 ambulatory CARLA BURDICK Facility:[facility] Start: 11-06-2024 End: 11-06-2024 Patient encounter [...] 11-03-2024 End: 11-03-2024 Telephone encounter Albin Gu APRN.GRAVEDIGGER Work Phone: Cardiology Comment on above: Results Start: 11-03-2024 End: 11-03-2024 ambulatory ALBIN GU Facility:[facility] Start: 11-03-2024 End: 11-03-2024 Patient encounter procedure Albin Gu APRN.GRAVEDIGGER Work Phone: Cardiology Comment on above: Chronic diastolic co ngestive heart failure (HCC) (Primary Dx); Primary hypertension; SSS (sick sinus syndrome) (HCC); Longstanding persistent atrial fibrillation (HCC); Stage 3b chronic kidney disease (HCC) Start: 11-03-2024 End: 11-03-2024 ambulatory ALBIN GU Facility:[facility] Start: 10-31-2024 End: 12-31-2024 Follow-up encounter Shaye Domingo APRN.CNP Work Phone: [facility] Start: 10-31-2024 End: 10-31-2024 ambulatory SHAYE DOMINGO Facility:[facility] Start: 10-31-2024 End: 10-31-2024 Office outpatient visit 25 minutes Shaye Domingo APRN.CNP Work Phone: [facility] Comment on above: Acute mesenteric isc [...] 10-12-2024 End: 10-12-2024 Telephone encounter Albin Gu APRN.GRAVEDIGGER Work Phone: Cardiology Comment on above: Patient Update Start: 07-31-2024 End: 07-31-2024 Telephone encounter Melida Koo APRN.CNP Work Phone: Cardiology Start: 07-07-2024 End: 07-07-2024 ambulatory DIANNE LE Facility:[facility] Start: 07-07-2024 End: 07-07-2024 ambulatory DIANNE LE Facility:[facility] Start: 04-07-2024 End: 04-07-2024 Patient encounter procedure Albin Gu APRN.CNP Work Phone: Cardiology Comment on above: Chronic diastolic co ngestive heart failure (HCC) (Primary Dx); Primary hypertension; SSS (sick sinus syndrome) (HCC); Longstanding persistent atrial fibrillation (HCC) Start: 04-07-2024 End: 04-07-2024 ambulatory ALBIN GU Facility:[facility] Start: 03-14-2024 End: 03-14-2024 Refill Melida Koo APRN.GRAVEDIGGER Work Phone: Cardiology Start: 02-21-2024 End: 02-21-2024 Telephone encounter Melida Koo APRN.GRAVEDIGGER Work Phone: Cardiology Start: 02-17-2024 ambulatory Carla dempsey MD Work Phone: Cardiology Comment on above: NT Pro BNP Start: 02-15-2024 End: 02-15-2024 ambulatory DIANNE HAASORY LE Facility:[facility] Start: 02-07-2024 Telephone encounter Melida walker APRN.GRAVEDIGGER Work Phone: Cardiology Comment on above: Recheck Chronic diastolic co ngestive heart failure (HCC) (Primary Dx) Start: 02-04-2024 Telephone encounter Albin amaro APRN.GRAVEDIGGER Work Phone: Cardiology Comment on above: Appointment Results Start: 02-03-2024 End: 02-03-2024 ambulatory [facility] Facility:[facility] Start: 01-17-2024 End: 01-17-2024 [facility] Start: 01-17-2024 End: 01-17-2024 Patient encounter [...] Office outpatient visit 15 minutes Deysi Collazo APRN.GRAVEDIGGER Work Phone: [facility] Comment on above: URI, acute (Primary Dx) Start: 11-26-2023 ambulatory Valentine Meneses RN Ambulato ry Care Management Comment on above: YONG SAM RN ( ED Utilization Review per request of payer) Start: 11-25-2023 End: 11-25-2023 Patient encounter procedure Albin Gu APRN.GRAVEDIGGER Work Phone: Cardiology Comment on above: Chronic diastolic co ngestive heart failure (HCC) (Primary Dx); Primary hypertension; SSS (sick sinus syndrome) (HCC); Longstanding persistent atrial fibrillation (HCC); Acute systolic CHF (congestive heart failure) (HCC) Start: 11-23-2023 ambulatory Ralph Foreman O Work Phone: Hematology/Oncology Comment on above: Results Start: 11-22-2023 End: 11-22-2023 Office outpatient visit 25 minutes Deysi Collazo APRN.GRAVEDIGGER Work Phone: [facility] Comment on above: Acute systolic CHF ( congestive heart failure) (HCC) (Primary Dx); Hyponatremia; Hypokalemia Start: 11-19-2023 Telephone encounter Albin amaro APRN.GRAVEDIGGER Work Phone: Cardiology Comment on above: Patient Question Start: 11-17-2023 Telephone encounter Gwen Valentine RN Cardiology Comment on above: Leasing Agent - O ther (CHF) Start: 11-16-2023 ambulatory Geri Montes RN Amb ulatory Care Management Comment on above: YONG SAM RN ( E.D. Utilization Review per Payer Request.) Start: 11-15-2023 Telephone encounter Nara Malone RN NOC Comment on above: Transition Of Care Start: 11-12-2023 Orders Only Ying Schmidt son OPTICAL MANAGER.GRAVEDIGGER Work Phone: Cardiology Comment on above: Stage 3 chronic kidn ey disease, unspecified whether stage 3a or 3b CKD (HCC) (Primary Dx) Initial Consult (HEA RT FAILURE [id number] ) Start: 11-08-2023 End: 11-08-2023 Emergency department patient visit Doreen LE Facility:[facility] Start: 11-08-2023 End: 11-08-2023 Patient encounter procedure [...] atrial fibrillation (HCC); SSS (sick sinus syndrome) ([facility]); S/P placement of cardiac pacemaker; Acute hip pain, right; Piriformis syndrome, right; Bilateral knee effusions; Primary osteoarthritis of both knees Start: 11-02-2023 ambulatory Doreen de la cruz PA-C Work Phone: [facility] Comment on above: moving forward Start: 11-02-2023 E-mail encounter fro m caregiver Doreen Le PA-C Work Phone: [facility] Start: 11-02-2023 Telephone encounter Doreen Le PA-C Work Phone: [facility] Comment on above: Results; Orders Start: 10-31-2023 Telephone encounter Doreen Le PA-C Work Phone: [facility] Start: 10-19-2023 End: 10-19-2023 Patient encounter procedure Lars Silva DO Work Phone: Vascular Surgery Comment on above: Venous insufficiency (Primary Dx) Start: 10-18-2023 End: 10-18-2023 Subsequent hospital visit by physician [facility] Work Phone: Radiology Comment on above: Acute systolic CHF ( congestive heart failure) ([facility]) [I50.21] Start: 10-18-2023 End: 10-18-2023 Patient encounter procedure Doreen Le PA-C Work Phone: [facility] [place] Comment on above: SSS (sick sinus synd juliana) ([facility]) (Primary Dx); Paroxysmal atrial fibrillation ([facility]); S/P placement of cardiac pacemaker; Chronic combined systolic and diastolic CHF (congestive heart failure) ([facility]); Dilated cardiomyopathy ([facility]); Ascending aorta dilatation ([facility]); Pedro aneurysm of anterior communicating artery; History of pulmonary embolism; Presence of Watchman left atrial appendage closure device; Platelet inhibition due to Plavix; Primary hypertension; Hyperlipidemia with target LDL less than 70; Heme + stool; Epigastric pain; Blood loss anemia; Acute systolic CHF (congestive heart failure) ([facility]); Vitamin D deficiency Start: 10-15-2023 Telephone encounter Carla Burdick MD Work Phone: Cardiology Comment on above: Patient Update Start: 10-14-2023 End: 10-14-2023 Patient encounter procedure Lars Foreman Silva Work Phone: Vascular Surgery Comment on above: Venous insufficiency (Primary Dx) Start: 10-11-2023 Follow-up encounter Yin Joseph MD Work Phone: [facility] Start: 10-11-2023 Pacemaker Remote F/U Yin Joseph MD Work Phone: [facility] Department Start: 07-05-2023 End: 07-05-2023 Patient encounter procedure Bijan Cole MD Work Phone: [facility] Comment on above: Influenza-like illne ss (Primary Dx) Start: 06-07-2023 ambulatory Doreen de la cruz PA-C Work Phone: [facility] [place] Comment on above: Rt. Foot Bone Fractu re Start: 06-01-2023 End: 06-01-2023 Subsequent hospital visit by physician Xr [facility] Work Phone: Radiology Comment on above: Closed nondisplaced fracture of fifth metatarsal bone of right foot with routine healing, subsequent encounter [S92.354D] Start: 04-30-2023 End: 04-30-2023 Subsequent hospital visit by physician [facility] (I-Stat) Work Phone: Cat Scan Comment on above: Lung nodule, solitar y [R91.1] Start: 04-12-2023 End: 04-12-2023 Subsequent hospital visit by physician Xr [facility] Work Phone: Radiology Comment on above: Pain of right middle finger [Y00.744] Start: 03-23-2023 Follow-up encounter Yin Joseph MD Work Phone: [facility] Start: 03-23-2023 Pacemaker Remote F/U Yin Joseph MD Work Phone: [facility] Department Start: 03-15-2023 Refill Doreen de la [...] ar marcelo stenosis (Primary Dx); Atherosclerosis of [place] artery of both lower extremities with intermittent claudication ([facility]); 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[facility]); Pain in both lower legs; Iron 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; Iron malabsorption; S/P placement of cardiac pacemaker; SSS (sick sinus syndrome) ([facility]); Chronic combined systolic and diastolic CHF (congestive heart failure) ([facility]); Dilated cardiomyopathy ([facility]); Ascending aorta dilatation ([facility]); H/O rheumatic heart disease; History of prosthetic [...] Follow-up encounter Yin Joseph MD Work Phone: [facility] Start: 12-22-2022 Pacemaker Remote F/U Yin Joseph MD Work Phone: [facility] Department Start: 12-10-2022 ambulatory Doreen Biswas ty:[facility] Start: 10-06-2022 End: 10-06-2022 Patient encounter procedure Doreen Le PA-C Work Phone: [facility] Comment on above: S/P placement of [...] End: 10-05-2022 Subsequent hospital visit by physician [facility] Mob 2 [...] Follow-up encounter Yin Joseph MD Work Phone: [facility] Start: 09-21-2022 Pacemaker Remote F/U Yin Joseph MD Work Phone: [facility] Department Start: 08-30-2022 Refill Doreen Dodge on PA-C Work Phone: Family Medicine aNncy Comment on above: Refill Request Start: 07-22-2022 [...] Follow-up encounter Yin Joseph MD Work Phone: [facility] Start: 06-23-2022 Pacemaker Remote F/U Yin Joseph MD Work Phone: [facility] Start: 05-23-2022 Refill Sonny Lund MD Work Phone: Hematology/Oncology Comment on above: Refill Request; Refi ll Request Start: 05-14-2022 End: 05-14-2022 ambulatory Sonny Lund MD Work Phone: Hematology/Oncology Comment on above: Iron deficiency anem ia secondary to inadequate dietary iron intake (Primary Dx); Chronic renal failure, stage 3b (HCC) Start: 05-14-2022 End: 05-14-2022 Patient encounter procedure Sonny Lund MD Work Phone: [facility] Start: 04-28-2022 End: 04-28-2022 [facility] Work Phone: [facility] Comment on above: Iron deficiency anem ia secondary to inadequate dietary iron intake (Primary Dx); Iron malabsorption Start: 04-22-2022 Refill Carla dempsey MD Work Phone: Cardiology Comment on above: Refill Request Start: 04-22-2022 End: 04-22-2022 ambulatory Treatment 7 [facility] Work Phone: Hematology/Oncology Comment on above: Iron deficiency anem ia secondary to inadequate dietary iron intake (Primary Dx); Iron malabsorption Start: 04-20-2022 End: 04-20-2022 ambulatory Treatment Rm 9 [place] Work Phone: Hematology/Oncology Comment on above: Iron deficiency anem ia secondary to inadequate dietary iron intake (Primary Dx); Iron malabsorption Start: 04-17-2022 End: 04-17-2022 ambulatory Treatment Rm 9 [place] [facility] Work Phone: Hematology/Oncology Comment on above: Iron deficiency anem ia secondary to inadequate dietary iron intake (Primary Dx); Iron malabsorption Start: 04-09-2022 Telephone encounter Doreen Le PA-C Work Phone: [facility] [place] Comment on above: Orders Start: 04-09-2022 End: [...] encounter procedure Doreen Le PA-C Work Phone: [facility] [place] Comment on above: Hospital discharge f [...] Telephone encounter Doreen Le PA-C Work Phone: [facility] Comment on above: Hospital Follow Up; Appointment [...] Follow-up encounter Yin Joseph MD Work Phone: [facility] Start: 03-24-2022 Pacemaker Remote F/U Yin Joseph MD Work Phone: [facility] Start: 03-23-2022 Telephone encounter Brianna Betancourt Cardiology Comment on above: Leasing Agent - O ther (CHF) Start: 03-21-2022 Telephone encounter Juan Diego Carroll MD Work Phone: [facility] Comment on above: Appointment Start: 03-20-2022 Admission to establishment Sheridan manning RN Director Of Recreation Therapy Management Comment on above: Transition Of Care ( Tcm readmission) Start: 03-20-2022 ambulatory Sheridan VANEGAS BUXEK Start: 03-19-2022 End: 03-19-2022 Patient encounter procedure Doreen Le PA-C Work Phone: [facility] Comment on above: 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); Aortic prosthetic valve regurgitation, subsequent encounter; H/O rheumatic heart disease; Atrial fibrillation, unspecified type (HCC); Presence of Watchman left atrial appendage closure device; Anemia, blood loss; Primary hypertension Start: 03-05-2022 ambulatory Sheridan Cervantes RN [facility] Comment on above: ABDIEL -; Watchmen Start: 03-05-2022 Follow-up encounter Sheridan Cervantes RN Director Of Recreation Therapy Management Comment on above: Transition Of Care ( Tcm follow up) Start: 03-03-2022 Follow-up encounter Lili Fay MD Work Phone: [facility] Start: 03-03-2022 End: 03-03-2022 Patient encounter procedure Lili Fay MD Work Phone: [facility] Comment on above: Longstanding persist ent atrial fibrillation (HCC) (Primary Dx); Presence of Watchman left atrial appendage closure device Paroxysmal atrial fi brillation (HCC); Presence of Watchman left atrial appendage closure device Start: 03-02-2022 Telephone encounter Saima England RN C ardiology Comment on above: Reminder Call (Trans esophageal Echo 03/03/22) Start: 02-25-2022 Patient Outreach Harika Tomas RN [facility] Comment on above: Transition Of Care ( [facility] D/C 02/24/2023 ) Start: 02-20-2022 End: 02-20-2022 Patient encounter procedure Doreen eL PA-C Work Phone: [facility] Comment on above: Rectal bleeding (Nohemy stacie Dx); Anemia, blood loss; Diarrhea, unspecified type Start: 02-12-2022 Telephone encounter Chai Encinas MD Work Phone: General Surgery Comment on above: Procedure Follow Up (EGD completed on 01/02/2022) Start: 02-09-2022 Orders Only Candi Juarez nd OPTICAL MANAGER.GRAVEDIGGER Work Phone: Cardiology Comment on above: Paroxysmal atrial fi brillation (HCC) (Primary Dx); Presence of Watchman left atrial appendage closure device Start: 01-21-2022 Orders Only Candi Juarez nd OPTICAL MANAGER.GRAVEDIGGER Work Phone: Cardiology Comment on above: Paroxysmal atrial fi brillation (HCC) (Primary Dx) Patient Question (OR YUSUF FOR ABDIEL AND ECG) Start: 01-19-2022 Refill Emilia Domínguez i, MD Work Phone: Cardiology Comment on above: Refill Request Start: 01-16-2022 End: 01-16-2022 Patient encounter procedure Doreen Le PA-C Work Phone: [facility] Comment on above: Atrial fibrillation, unspecified type (HCC) (Primary Dx); Presence of Watchman left atrial appendage closure device; Herpes zoster without complication Start: 01-09-2022 ambulatory Chandler villalobos MD Work Phone: Cardiology Comment on above: Patient Education (E PS-Watchman) Start: 01-09-2022 Follow-up encounter Randy Torrez MD Work Phone: [facility] Start: 01-09-2022 End: 01-09-2022 Patient encounter procedure Randy Torrez MD Work Phone: [facility] Comment on above: Atrial fibrillation, unspecified type (HCC) (Primary Dx); Gastrointestinal hemorrhage, unspecified gastrointestinal hemorrhage type; Anemia due to chronic blood loss; Other fatigue; SOB (shortness of breath) Start: 01-02-2022 End: 01-02-2022 Subsequent hospital visit by physician Chai Encinas MD Work Phone: [facility] Comment on above: Acute blood loss ane miguel [D62] Start: 01-01-2022 Telephone encounter Chai Encinas MD Work Phone: General Surgery Comment on above: 01-02-2022 [facility] Start: 01-01-2022 End: 01-01-2022 Patient encounter procedure Chai Encinas MD Work Phone: General Surgery Comment on above: Anemia, blood loss ( Primary Dx); Acute blood loss anemia; Heme + stool; Sludge in gallbladder; Epigastric pain; Duodenal ulcer with hemorrhage Start: 12-30-2021 End: 12-30-2021 Patient encounter procedure [facility] Start: 12-29-2021 Telephone encounter Doreen [...] Telephone encounter Doreen Le PA-C Work Phone: [facility] Comment on above: Rectal Problem Start: 12-15-2021 End: 12-15-2021 Subsequent hospital visit by physician [facility] Work Phone: Radiology Comment on above: Ischial bursitis of left side [M70.72] Start: 12-15-2021 End: 12-15-2021 Patient encounter procedure Doreen Le PA-C Work Phone: [facility] Comment on above: Renal mass, right [...] Follow-up encounter Yin Joseph MD Work Phone: [facility] Start: 12-11-2021 Pacemaker Remote F/U Yin Joseph MD Work Phone: [facility] Start: 12-04-2021 Refill Chandler villalobos MD Work Phone: Cardiology Start: 12-03-2021 Telephone encounter Chandler ortiz MD Work Phone: Cardiology Comment on above: Patient Question (ME DICATION QUESTION - XARELTO) Start: 11-27-2021 Orders Only Na Ramirez OPTICAL MANAGER.GRAVEDIGGER Work Phone: Vascular Surgery Comment on above: PAD (peripheral jennifer ry disease) (HCC) (Primary Dx); PVD (peripheral vascular disease) (HCC) Start: 11-26-2021 End: 11-26-2021 Office outpatient visit 25 minutes Na Ramirez OPTICAL MANAGER.GRAVEDIGGER Work Phone: Vascular Surgery Comment on above: PAD (peripheral jennifer ry disease) (HCC) (Primary Dx); Anemia due to chronic illness Start: 10-22-2021 Refill Yin Joseph MD Work Phone: Vascular Surgery Comment on above: Refill Request Start: 09-24-2021 Follow-up encounter Yin Joseph MD Work Phone: [facility] Start: 09-24-2021 Pacemaker Remote F/U Yin Joseph MD Work Phone: [facility] Start: 09-24-2021 Telephone encounter Chai Encinas MD Work Phone: General Surgery Comment on above: Appointment Cancelle d Start: 09-23-2021 Telephone encounter Chandler ortiz MD Work Phone: Cardiology Comment on above: Appointment Reschedu led (Due to change in physician's schedule) Start: 02-14-2021 End: 02-15-2021 ambulatory PROVIDER NOT IN SYSTEM [facility] Start: 01-23-2019 End: 01-23-2019 Refill Lizeth Mabry [facility] Cardiology Start: 01-19-2019 End: 01-19-2019 Office outpatient visit 15 minutes Mars Chung Work Phone: [facility] Cardiology Comment on above: Persistent atrial fi brillation (Primary Dx); intermediate current use of antiarrhythmic medical therapy; Moderate mitral regurgitation; Status post aortic valve replacement with tissue valve Start: 01-08-2014 End: 09-12-2021 Patient encounter status CARMELINA Le PA-C Work Phone: [facility] Procedures Date Procedure Procedure Detail Performing Clinician Start: 05-02-2025 Mean corpuscular hemoglobin concentration determination Deysi Collazo FOUNDRY WORKER-C Work Phone: Start: 05-02-2025 Neutrophil count Deysi Collazo FOUNDRY WORKER-C Work Phone: Start: 05-02-2025 Nucleated red blood cell count procedure Deysi Collazo FOUNDRY WORKER-C Work Phone: Start: 05-02-2025 Platelet mean volume determination Gilmer Collazo FOUNDRY WORKER-C Work Phone: Start: 05-02-2025 Vitamin D, 25-hydroxy measurement Gopi Collazo FOUNDRY WORKER-C Work Phone: Start: 04-24-2025 Immature reticulocyte fraction Deysi hernandez FOUNDRY WORKER-C Work Phone: Start: 04-24-2025 Mean corpuscular hemoglobin concentration determination Deysi Collazo FOUNDRY WORKER-C Work Phone: Start: 04-24-2025 Neutrophil count Deysi Collazo FOUNDRY WORKER-C Work Phone: Start: 04-24-2025 Nucleated red blood cell count procedure Deysi Collazo FOUNDRY WORKER-C Work Phone: Start: 04-24-2025 Platelet mean volume determination Gilmer Collazo FOUNDRY WORKER-C Work Phone: Start: 04-24-2025 Total iron binding capacity measurement Deysi Collazo FOUNDRY WORKER-C Work Phone: Start: 04-02-2025 Bacterial nucleic acid assay Deysi Nickerson gen FOUNDRY WORKER-C Work Phone: Start: 04-02-2025 Anaerobic microbial culture Deysi Copeag en FOUNDRY WORKER-C Work Phone: Start: 04-02-2025 Gram stain microscopy Deysi Collazo FOUNDRY WORKER-C Work Phone: Start: 04-02-2025 End: 04-02-2025 Microbial culture, routine Deysi Copeasiya n FOUNDRY WORKER-C Work Phone: Start: 03-13-2025 Blood count smear mcrscp w/mnl difrntl wbc count Deysi Collazo FOUNDRY WORKER-C Work Phone: Start: 03-13-2025 Immature reticulocyte fraction Deysi hernandez FOUNDRY WORKER-C Work Phone: Start: 03-13-2025 Mean corpuscular hemoglobin concentration determination Deysi Collazo FOUNDRY WORKER-C Work Phone: Start: 03-13-2025 Neutrophil count Deysi Collazo FOUNDRY WORKER-C Work Phone: Start: 03-13-2025 Nucleated red blood cell count procedure Deysi Collazo FOUNDRY WORKER-C Work Phone: Start: 03-13-2025 Platelet mean volume determination Gilmer Collazo FOUNDRY WORKER-C Work Phone: Start: 03-13-2025 Total iron binding capacity measurement Deysi Collazo FOUNDRY WORKER-C Work Phone: Start: 03-09-2025 Blood count smear mcrscp w/mnl difrntl wbc count Deysi Collazo FOUNDRY WORKER-C Work Phone: Start: 03-09-2025 Mean corpuscular hemoglobin concentration determination Deysi Collazo FOUNDRY WORKER-C Work Phone: Start: 03-09-2025 Neutrophil count Deysi Collazo FOUNDRY WORKER-C Work Phone: Start: 03-09-2025 Nucleated red blood cell count procedure Deysi Collazo FOUNDRY WORKER-C Work Phone: Start: 03-09-2025 Platelet mean volume determination Gilmer Collazo FOUNDRY WORKER-C Work Phone: Start: 03-09-2025 Reactive lymphocyte count Deysi Collazo FOUNDRY WORKER-C Work Phone: Start: 02-27-2025 Urine culture Deysi Collazo FOUNDRY WORKER-C Work Phone: Start: 02-27-2025 Blood count smear mcrscp w/mnl difrntl wbc count Deysi Collazo FOUNDRY WORKER-C Work Phone: Start: 02-27-2025 Mean corpuscular hemoglobin concentration determination Deysi Collazo FOUNDRY WORKER-C Work Phone: Start: 02-27-2025 Neutrophil count Deysi Collazo FOUNDRY WORKER-C Work Phone: Start: 02-27-2025 Nucleated red blood cell count procedure Deysi Collazo FOUNDRY WORKER-C Work Phone: Start: 02-27-2025 Platelet mean volume determination Gilmer Collazo FOUNDRY WORKER-C Work Phone: Start: 02-27-2025 Urine microscopy: red cells Deysi Matthew en FOUNDRY WORKER-C Work Phone: Start: 02-27-2025 Urnls dip stick/tablet reagent auto microscopy Deysi Collazo FOUNDRY WORKER-C Work Phone: Start: 02-21-2025 Blood count smear mcrscp w/mnl difrntl wbc count Deysi Collazo FOUNDRY WORKER-C Work Phone: Start: 02-21-2025 Mean corpuscular hemoglobin concentration determination Deysi Collazo FOUNDRY WORKER-C Work Phone: Start: 02-21-2025 Neutrophil count Deysi Collazo FOUNDRY WORKER-C Work Phone: Start: 02-21-2025 Nucleated red blood cell count procedure Deysi Collazo FOUNDRY WORKER-C Work Phone: Start: 02-21-2025 Platelet mean volume determination Gilmer Collazo FOUNDRY WORKER-C Work Phone: Start: 02-16-2025 Blood count smear mcrscp w/mnl difrntl wbc count Deysi Collazo FOUNDRY WORKER-C Work Phone: Start: 02-16-2025 Estimated creatinine clearance Deysi henleysilke FOUNDRY WORKER-C Work Phone: Start: 02-16-2025 Mean corpuscular hemoglobin concentration determination Deysi Collazo FOUNDRY WORKER-C Work Phone: Start: 02-16-2025 Neutrophil count Deysi Collazo FOUNDRY WORKER-C Work Phone: Start: 02-16-2025 Nucleated red blood cell count procedure Deysi Collazo FOUNDRY WORKER-C Work Phone: Start: 02-16-2025 Platelet mean volume determination Gilmer Collazo FOUNDRY WORKER-C Work Phone: Start: 02-16-2025 X-ray of chest, PA and lateral views Deysi Collazo FOUNDRY WORKER-C Work Phone: Start: 02-13-2025 Osmolality measurement, serum Deysi ochoa FOUNDRY WORKER-C Work Phone: Start: 02-13-2025 Blood count smear mcrscp w/mnl difrntl wbc count Deysi Collazo FOUNDRY WORKER-C Work Phone: Start: 02-13-2025 Mean corpuscular hemoglobin concentration determination Deysi Collazo FOUNDRY WORKER-C Work Phone: Start: 02-13-2025 Neutrophil count Deysi Collazo FOUNDRY WORKER-C Work Phone: Start: 02-13-2025 Nucleated red blood cell count procedure Deysi Collazo FOUNDRY WORKER-C Work Phone: Start: 02-13-2025 Platelet mean volume determination Gilmer Collazo FOUNDRY WORKER-C Work Phone: Start: 02-01-2025 Blood count smear mcrscp w/mnl difrntl wbc count Deysi Collazo FOUNDRY WORKER-C Work Phone: Start: 02-01-2025 Mean corpuscular hemoglobin concentration determination Deysi Collazo FOUNDRY WORKER-C Work Phone: Start: 02-01-2025 Neutrophil count Deysi Collazo FOUNDRY WORKER-C Work Phone: Start: 02-01-2025 Nucleated red blood cell count procedure Deysi Collazo FOUNDRY WORKER-C Work Phone: Start: 02-01-2025 Platelet mean volume determination Gilmer Collazo FOUNDRY WORKER-C Work Phone: Start: 02-01-2025 Vitamin D, 25-hydroxy measurement Gopi Collazo FOUNDRY WORKER-C Work Phone: Comment on above: Vitamin D StatusDeficiency: <20 ng/mL (5 0nmol/L)Insufficiency: 20-30 ng/mL (50-75 nmol/L)Sufficiency: 30-100 ng/mL (75-250 nmol/L)Toxicity: >100 ng/mL (>250 nmol/L) Start: 01-23-2025 Blood count smear mcrscp w/mnl difrntl wbc count Deysi Collazo NP-mCASH Work Phone: Start: 01-23-2025 Hepatitis C antibody measurement Deysi Collzao NP-mCASH Work Phone: Comment on above: Reactive: Presumptive evidence of antibo dies to HCV. Follow CDC recommendations for supplemental testing.Non-Reactive: Antibodies to HCV were not detected; does not exclude the possibility of exposure to HCVReactive Results are presumptive evidence of antibodies to HCV. Follow CDC recommendations for supplemental testing.Order confirmation testing: HCV Quant by PCR testing - HCVPCR #[id number] Non Reactive: < 0.8 Equivocal: >/= 0.8 to < 1.0 Reactive: >/= 1.0The [facility] requires that a reactive/equivocal HCV antibody result be sent out for confirmation. HCV Quant by PCR testing. Start: 01-23-2025 Mean corpuscular hemoglobin concentration determination Deysi Collazo [employer] Work Phone: Start: 01-23-2025 Neutrophil count Deysi Collazo [employer] Work Phone: Start: 01-23-2025 Nucleated red blood cell count procedure Deysi Collazo [employer] Work Phone: Start: 01-23-2025 Platelet mean volume determination Gilmer Collazo [employer] Work Phone: Start: 01-23-2025 Serum inorganic phosphate measurement Deysi Collazo FOUNDRY WORKER-mCASH Work Phone: Start: 01-23-2025 Total cholesterol:HDL ratio measurement Deysi Collazo NP-mCASH Work Phone: Start: 01-23-2025 Triglycerides measurement Deysi Collazo [employer] Work Phone: Start: 01-23-2025 Vitamin D, 25-hydroxy measurement Gopi Collazo [employer] Work Phone: Comment on above: Vitamin D StatusDeficiency: <20 ng/mL (5 0nmol/L)Insufficiency: 20-30 ng/mL (50-75 nmol/L)Sufficiency: 30-100 ng/mL (75-250 nmol/L)Toxicity: >100 ng/mL (>250 nmol/L) Start: 01-11-2025 Estimated creatinine clearance Deysi H aagsilke FOUNDRY WORKER-C Work Phone: Start: 01-08-2025 Blood count smear mcrscp w/mnl difrntl wbc count Deysi Collazo FOUNDRY WORKER-C Work Phone: Start: 01-08-2025 Mean corpuscular hemoglobin concentration determination Deysi Collazo FOUNDRY WORKER-C Work Phone: Start: 01-08-2025 Neutrophil count Deysi Collazo FOUNDRY WORKER-C Work Phone: Start: 01-08-2025 Nucleated red blood cell count procedure Deysi Collazo FOUNDRY WORKER-C Work Phone: Start: 01-08-2025 Platelet mean volume determination Gilmer Collazo FOUNDRY WORKER-C Work Phone: Start: 01-08-2025 Total cholesterol:HDL ratio measurement Deysi Collazo FOUNDRY WORKER-C Work Phone: Start: 01-08-2025 Triglycerides measurement Deysi Collazo FOUNDRY WORKER-C Work Phone: Start: 01-07-2025 CT angiography of head and neck Deysi Hadon FOUNDRY WORKER-C Work Phone: Start: 01-07-2025 CT of head without contrast Deysi Vipullauren edouard FOUNDRY WORKER-C Work Phone: Start: 01-07-2025 X-ray of chest, PA and lateral views Deysi Copedon FOUNDRY WORKER-C Work Phone: Start: 01-07-2025 Estimated creatinine clearance Deysi H aagsilke FOUNDRY WORKER-C Work Phone: Start: 11-08-2023 Ecg routine ecg [...] complete minimum 3 views Doreen Taylor Le PA-mCASH Work Phone: Start: 04-30-2023 Ct thorax w/o contrast material M Haider graham Le PA-C Work Phone: Start: 04-12-2023 Radex fingr minimum 2 views Doreen Taylor Ba [employer] Work Phone: Start: 03-23-2023 PACEMAKER REMOTE CHECK [...] 2d w/wo m-mode rec f-up/lmtd Candi Beauchamp OPTICAL MANAGER.GRAVEDIGGER Work Phone: Start: 01-09-2022 PACEMAKER CLINIC CHECK [...] DTaP,Tdap,Td Vaccine (3 - Td or Tdap) [facility] Start: 12-12-2025 Complete blood count Hemoglobin/Hematocrit [facility] Start: 12-12-2025 Creatinine measurement Serum Creatinine [facility] Start: 12-11-2025 Complete blood count Hemoglobin/Hematocrit [facility] Start: 12-11-2025 Creatinine measurement Serum Creatinine [facility] Start: 12-11-2025 Hepatitis B screening Urine Albumin:Creatinine Ratio [facility] Start: 11-20-2025 Creatinine measurement Serum Creatinine [facility] Start: 11-13-2025 Creatinine measurement Serum Creatinine [facility] Start: 11-03-2025 BP Controlled (<130/80) BP Controlled (<130/80) [facility] Start: 11-03-2025 Creatinine measurement Serum Creatinine [facility] Start: 10-31-2025 Annual PCP Team Chronic Disease Visit Annual PCP Team Chronic Disease Visit [facility] Start: 10-31-2025 Complete blood count Hemoglobin/Hematocrit [facility] Start: 10-31-2025 Creatinine measurement Serum Creatinine [facility] Start: 10-10-2025 Complete blood count Hemoglobin/Hematocrit [facility] Start: 10-03-2025 Hepatitis B screening Urine Albumin:Creatinine Ratio [facility] Start: 10-02-2025 Hepatitis B surface antibody level LDL Cholesterol [facility] Start: 07-23-2025 Reticulocyte count [facility] Start: 07-07-2025 Annual PCP Team Chronic Disease Visit Annual PCP Team Chronic Disease Visit [facility] Start: 07-07-2025 Anxiety Screening Anxiety Screening [facility] Comment on above: Postponed from 1963 (Declined at t his time) Start: 07-07-2025 Covid-19 Vaccine () Covid-19 Vaccine () [facility] Comment on above: Postponed from 03/05/2024 (Declined at t his time) Start: 07-07-2025 Creatinine measurement Serum Creatinine [facility] Start: 07-07-2025 Hepatitis B screening Urine Albumin:Creatinine Ratio [facility] Start: 05-10-2025 -[facility] Work Phone: Start: 05-07-2025 End: 05-07-2025 -[facility] Work Phone: Start: 05-03-2025 -[facility] Work Phone: Start: 05-03-2025 End: 05-04-2025 -[facility] Work Phone: Start: 05-02-2025 End: 05-02-2025 -Laboratory Phy Office 3rd Flr Start: 04-26-2025 Glaucoma screening Dilated Retinal Exam [facility] Start: 04-22-2025 Hemoglobin A1c measurement HbA1C [facility] Start: 04-03-2025 Hemoglobin A1c measurement HbA1C [facility] Start: 04-02-2025 Source specific culture [facility] Start: 04-02-2025 Anaerobic microbial culture [facility] Start: 04-02-2025 Gram stain microscopy [facility] Start: 04-02-2025 Microbial culture, routine [facility] Start: 04-02-2025 -Laboratory Phy Office 3rd Flr Start: 03-29-2025 -[facility] Work Phone: Start: 03-27-2025 -[facility] Start: 03-26-2025 End: 03-26-2025 Patient encounter procedure 03/26/2025 10:00 AM EDT Office Visit Cardiology [address] [place] [address] Carla Burdick MD [address] [place] [address] 4 month follow up - ECHO prior Cardiology Comment on above: 4 month follow up - ECHO prior Start: 03-22-2025 [facility] Start: 03-19-2025 End: 03-19-2025 Patient encounter procedure 03/19/2025 1:50 PM EDT Office Visit Cardiology [address] [place] [address] ECHO Cardiology Comment on above: ECHO Start: 03-13-2025 CBC W Auto Differential panel - Blood [facility] Start: 03-13-2025 Comprehensive metabolic 2000 panel - Serum or Plasma [facility] Start: 03-13-2025 Erythropoietin (EPO) [Units/volume] in Serum or Plasma [facility] Start: 03-13-2025 Ferritin [Mass/volume] in Serum or Plasma [facility] Start: 03-13-2025 Iron and Iron binding capacity panel - Serum or Plasma [facility] Start: 03-13-2025 Reticulocyte count [facility] Start: 03-13-2025 Vitamin B12 measurement [facility] Start: 03-13-2025 [facility] Start: 03-05-2025 Influenza vaccination Influenza Vaccine (#1) [facility] Start: 02-27-2025 Urine culture [facility] Start: 02-27-2025 [facility] Start: 02-26-2025 End: 02-26-2025 Patient encounter procedure 02/26/2025 2:20 PM EDT Office Visit Cardiology [address] [place] [address] Carla Burdick MD [address] [address] f/u Cardiology Comment on above: f/u Start: 02-16-2025 End: 02-16-2025 [facility] Start: 02-16-2025 [facility] Start: 02-13-2025 Measurement of C-reactive protein using high sensitivity technique [facility] Start: 02-05-2025 End: 02-05-2025 Evaluation of diagnostic study results [facility] Start: 02-02-2025 Creatinine measurement Serum Creatinine [facility] Start: 02-02-2025 Hepatitis B surface antibody level LDL Cholesterol [facility] Start: 01-23-2025 End: 01-23-2025 Patient encounter procedure 01/23/2025 10:00 AM EDT Office Visit Cardiology [address] [place] [address] Albin Gu APRN.GRAVEDIGGER [address] [place] [address] CHF FOLLOW UP Cardiology Comment on above: CHF FOLLOW UP Start: 01-11-2025 Patient discharge [facility] Start: 01-10-2025 End: 01-10-2025 Patient encounter procedure [facility] Comment on above: 6 month follow up (SHABBIR from [facility]) 6 month follow up Start: 01-08-2025 Referral to stable attendant [facility] Start: 01-08-2025 End: 01-08-2025 [facility] Start: 01-08-2025 Thyroid stimulating hormone measurement [facility] Start: 01-08-2025 Vital signs measurements [facility] Start: 01-08-2025 Cardiac monitoring [facility] Start: 01-08-2025 Catheterization of vein [facility] Start: 01-08-2025 Consultation [facility] Start: 01-08-2025 Elevation of head of bed [facility] Start: 01-08-2025 Exercises [facility] Start: 01-08-2025 Notification of physician [facility] Start: 01-08-2025 Patient referral to dietitian [facility] Start: 01-08-2025 Referral for physical therapy [facility] Start: 01-08-2025 Referral to occupational therapist [facility] Start: 01-08-2025 Referral to service [facility] Start: 01-08-2025 Speech therapy assessment [facility] [facility] Start: 01-08-2025 Tobacco use cessation education [facility] Start: 01-07-2025 Following clinical pathway protocol [facility] Start: 01-07-2025 Assessment of risk of venous thromboembolism [facility] Start: 01-07-2025 Care regimes management [facility] Start: 01-07-2025 Elevation of affected extremity [facility] Start: 01-07-2025 Inhalation therapy procedure [facility] Start: 01-07-2025 Insertion of catheter into peripheral vein [facility] Start: 01-07-2025 Measuring intake and output [facility] Start: 01-07-2025 Notification of physician [facility] Start: 01-07-2025 Patient education [facility] Start: 01-07-2025 Providing care according to standard [facility] Start: 01-07-2025 Provision of activity privileges [facility] Start: 01-07-2025 End: 01-07-2025 [facility] Start: 01-07-2025 Verification routine [facility] Start: 01-07-2025 Admission procedure [facility] Start: 01-07-2025 End: 01-07-2025 [facility] Start: 01-04-2025 Hemoglobin A1c measurement HbA1C [facility] Start: 01-01-2025 End: 04-02-2025 Basic metabolic 2000 panel - Serum or Plasma BASIC METABOLIC PANEL Lab Routine Chronic diastolic (congestive) heart failure (HCC) Expected: 01/01/2025, Expires: 04/02/2025 [facility] Comment on above: Expected: 01/01/2025, Expires: Start: 01-01-2025 End: 04-02-2025 Natriuretic peptide.B prohormone N-Terminal [Mass/volume] in Serum or Plasma NT PRO BNP Lab Routine Chronic diastolic (congestive) heart failure (HCC) Expected: 01/01/2025, Expires: 04/02/2025 [facility] Comment on above: Expected: 01/01/2025, Expires: Start: 01-01-2025 End: 01-01-2025 Patient encounter procedure 01/01/2025 11:00 AM EDT Office Visit Cardiology [address] [place] [address] Carla Burdick MD [address] [place] [place] [address] 1 month follow up Cardiology Comment on above: 1 month follow up Start: 12-21-2024 End: 12-21-2024 Patient encounter procedure 12/21/2024 9:00 AM EDT Office Visit Cardiology [address] [place] [address] Albin Gu APRN.GRAVEDIGGER [address] [place], [place] [id number] [facility] Cardiology Comment on above: CHF Start: 12-20-2024 End: 12-20-2024 Patient encounter procedure Vascular Surgery Comment on above: [facility] HOSPITAL FOLLOW UP Start: 12-19-2024 End: 03-20-2025 Basic metabolic 2000 panel - Serum or Plasma BASIC METABOLIC PANEL Lab Routine Chronic diastolic congestive heart failure (HCC) Expected: 12/19/2024, Expires: 03/20/2025 [facility] Work Phone: Comment on above: Expected: 12/19/2024, Expires: Start: 12-18-2024 End: 12-18-2024 Patient encounter procedure 12/18/2024 11:00 AM EDT Office Visit Cardiology [address] [place] [address] Albin Gu APRN.GRAVEDIGGER [address] [place], [place] [id number] CHF Cardiology Comment on above: CHF Start: 12-11-2024 End: 12-11-2024 Patient encounter procedure 12/11/2024 2:30 PM EDT Office Visit Cardiology [address] [place] [address] Allison Toledo APRN.GRAVEDIGGER [address] [address] follow u Cardiology Comment on above: follow u Start: 12-06-2024 Annual PCP Team Chronic Disease Visit Annual PCP Team Chronic Disease Visit [facility] Start: 12-06-2024 BP Controlled (<130/80) BP Controlled (<130/80) [facility] Start: 12-04-2024 End: 12-04-2024 Patient encounter procedure 12/04/2024 2:00 PM EDT Office Visit Cardiology [address] [place], [place] [id number] Carla Burdick MD [address] [place] [address] [place] [address] [phone] (Fax) 1 month follow up Cardiology Comment on above: 1 month follow up Start: 12-01-2024 Creatinine measurement Serum Creatinine [facility] Start: 11-21-2024 Annual PCP Team Chronic Disease Visit Annual PCP Team Chronic Disease Visit [facility] Start: 11-21-2024 BP Controlled (<130/80) BP Controlled (<130/80) [facility] in Start: 11-21-2024 End: 11-21-2024 Patient encounter procedure 11/21/2024 10:00 AM EDT Office Visit Cardiology [address] [place] [address] Albin Gu, OPTICAL MANAGER.GRAVEDIGGER [address] [place] [address] CHF Cardiology Comment on above: CHF Start: 11-20-2024 End: 11-20-2024 Patient encounter procedure 11/20/2024 8:00 AM EDT Office Visit Cardiology [address] [place], [place] [id number] Carla Burdick MD [address] [place] [place] [address] [phone] (Fax) follow up with labs per Dr Burdick's phone note Cardiology Comment on above: follow up with labs per Dr Burdick's da ne note Start: 11-18-2024 Complete blood count Hemoglobin/Hematocrit [facility] Start: 11-18-2024 Creatinine measurement Serum Creatinine [facility] Start: 11-15-2024 End: 02-14-2025 Basic metabolic 2000 panel - Serum or Plasma BASIC METABOLIC PANEL Lab Routine Dyspnea on exertion Chronic diastolic congestive heart failure (HCC) Expected: 11/15/2024, Expires: 02/14/2025 [facility] Work Phone: Comment on above: Expected: 11/15/2024, Expires: Start: 11-15-2024 End: 02-14-2025 Natriuretic peptide.B prohormone N-Terminal [Mass/volume] in Serum or Plasma NT PRO BNP Lab Routine Dyspnea on exertion Chronic diastolic congestive heart failure (HCC) Expected: 11/15/2024, Expires: 02/14/2025 [facility] Comment on above: Expected: 11/15/2024, Expires: Start: 11-15-2024 End: 11-15-2024 ambulatory 11/15/2024 9:00 AM EDT OT/PT/Speech Visit [facility] [address] [place], [place] [id number] Frank Null, PT [address] [place], [place] [id number] Physical deconditioning [R53.81] [facility] Comment on above: Physical deconditioning [R53.81] Start: 11-11-2024 Complete blood count Hemoglobin/Hematocrit [facility] Start: 11-11-2024 Creatinine measurement Serum Creatinine [facility] Start: 11-09-2024 Complete blood count Hemoglobin/Hematocrit [facility] Start: 11-09-2024 Creatinine measurement Serum Creatinine [facility] Start: 11-07-2024 End: 11-07-2024 ambulatory 11/07/2024 10:45 AM EDT OT/PT/Speech Visit [facility] [address] [place], [place] [id number] Adriana Wilson, OTR/L [address] [place], [place] [id number] Physical deconditioning [R53.81] [facility] Comment on above: Physical deconditioning [R53.81] Start: 11-06-2024 End: 11-06-2024 Patient encounter procedure 11/06/2024 2:40 PM EDT Office Visit Cardiology [address] [place] [address] Carla Burdick MD [address] [place] [address] hospital f/u - acute on chronic CHF Cardiology Comment on above: hospital f/u - acute on chronic CHF Start: 11-06-2024 End: 02-05-2025 Basic metabolic 2000 panel - Serum or Plasma BASIC METABOLIC PANEL Lab Routine Chronic diastolic (congestive) heart failure (HCC) Expected: 11/06/2024, Expires: 02/05/2025 [facility] Work Phone: Comment on above: Expected: 11/06/2024, Expires: Start: 11-06-2024 End: 02-05-2025 Natriuretic peptide.B prohormone N-Terminal [Mass/volume] in Serum or Plasma NT PRO BNP Lab Routine Chronic diastolic (congestive) heart failure (HCC) Expected: 11/06/2024, Expires: 02/05/2025 [facility] Comment on above: Expected: 11/06/2024, Expires: Start: 11-03-2024 Annual PCP Team Chronic Disease Visit Annual PCP Team Chronic Disease Visit [facility] Start: 11-03-2024 End: 02-02-2025 Basic metabolic 2000 panel - Serum or Plasma BASIC METABOLIC PANEL Lab Routine Chronic diastolic congestive heart failure (HCC) Expected: 11/03/2024, Expires: 02/02/2025 [facility] Work Phone: Comment on above: Expected: 11/03/2024, Expires: Start: 10-31-2024 Complete blood count Hemoglobin/Hematocrit [facility] Start: 10-31-2024 Creatinine measurement Serum Creatinine [facility] Start: 10-26-2024 End: 10-26-2024 Patient encounter procedure 10/26/2024 9:00 AM EDT Office Visit Cardiology [address] [place] [address] Albin Gu APRN.GRAVEDIGGER [address] [place] [address] I50.32 I10 I49.5 I48.11 Cardiology Comment on above: I50.32 I10 I49.5 I48.11 Start: 10-25-2024 End: 10-25-2024 Patient encounter procedure 10/25/2024 1:30 PM EDT Office Visit Vasculary Surgery [address] [place], [place] [id number] Bilateral carotid artery stenosis [I65.23] [facility] Comment on above: Bilateral carotid artery stenosis [I65.2 3] Start: 10-24-2024 End: 10-24-2024 Patient encounter procedure 10/24/2024 11:00 AM EDT Office Visit Cardiology [address] [place] [address] Albin Gu APRN.GRAVEDIGGER [address] [place] [address] CHF Cardiology Comment on above: CHF Start: 10-23-2024 End: 10-23-2024 Patient encounter procedure 10/23/2024 2:00 PM EDT Office Visit [facility] [address] [place], [place] [id number] Deysi Collazo APRN.GRAVEDIGGER [address] [place] [address] Post hospital visit [facility] Comment on above: Post hospital visit Start: 10-17-2024 Annual PCP Team Chronic Disease Visit Annual PCP Team Chronic Disease Visit [facility] Start: 10-17-2024 End: 10-17-2024 Patient encounter procedure Cardiology Comment on above: medtronic ep eval medtronic Start: 10-15-2024 Creatinine measurement Serum Creatinine [facility] Start: 07-05-2024 Advance Directive Discussion Advance Directive Discussion [facility] Start: 07-05-2024 Medicare Advantage Annual Wellness Visit Medicare Advantage Annual Wellness Visit [facility] Start: 06-01-2024 Annual PCP Team Chronic Disease Visit Annual PCP Team Chronic Disease Visit [facility] Start: 06-01-2024 BP Controlled (<130/80) BP Controlled (<130/80) [facility] in Start: 04-16-2024 Glaucoma screening Dilated Retinal Exam [facility] Start: 04-16-2024 Hepatitis C antibody, confirmatory test Dilated Retinal Exam [facility] Start: 04-12-2024 Annual PCP Team Chronic Disease Visit Annual PCP Team Chronic Disease Visit [facility] Start: 04-12-2024 Covid-19 Vaccine () Covid-19 Vaccine () [facility] Comment on above: Postponed from 03/05/2023 (Declined at t his time) Start: 04-12-2024 Shingrix Vaccine (2 of 2) Shingrix Vaccine (2 of 2) [facility] Comment on above: Postponed from 01/03/2019 (Insurance Cov erage) Start: 04-07-2024 Complete blood count Hemoglobin/Hematocrit [facility] Start: 04-07-2024 Creatinine measurement Serum Creatinine [facility] Start: 04-07-2024 Hemoglobin/Hematocrit Hemoglobin/Hematocrit [facility] Start: 04-07-2024 Hepatitis B screening Urine Albumin:Creatinine Ratio [facility] Start: 04-07-2024 Hepatitis B surface antibody level LDL Cholesterol [facility] Start: 04-07-2024 Serum Creatinine Serum Creatinine [facility] Start: 04-07-2024 End: 04-07-2024 Patient encounter procedure 04/07/2024 9:00 AM EDT Office Visit Cardiology [address] [place] [address] Albin Gu APRN.GRAVEDIGGER [address] [place] [address] I50.32 I10 I49.5 I48.11 I50.21 Cardiology Comment on above: I50.32 I10 I49.5 I48.11 I50.21 Start: 04-06-2024 End: 04-06-2024 Patient encounter procedure 04/06/2024 9:00 AM EDT Office Visit Cardiology [address] [place] [address] Albin Gu APRN.GRAVEDIGGER [address] [place] [address] I50.32 I10 I49.5 I48.11 I50.21 Cardiology Comment on above: I50.32 I10 I49.5 I48.11 I50.21 Start: 03-05-2024 Covid-19 Vaccine ( season) Covid-19 Vaccine () [facility] Start: 03-05-2024 Covid-19 Vaccine () Covid-19 Vaccine () [facility] Start: 03-05-2024 Influenza vaccination Influenza Vaccine (#1) [facility] Start: 02-07-2024 End: 05-08-2024 Basic metabolic 2000 panel - Serum or Plasma BASIC METABOLIC PANEL Lab Routine Chronic kidney disease, unspecified CKD stage Expected: 02/07/2024, Expires: 05/08/2024 [facility] Work Phone: Comment on above: Expected: 02/07/2024, Expires: Start: 02-07-2024 End: 05-08-2024 Natriuretic peptide.B prohormone N-Terminal [Mass/volume] in Serum or Plasma NT PRO BNP Lab Routine Chronic diastolic congestive heart failure (HCC) Expected: 02/07/2024, Expires: 05/08/2024 [facility] Work Phone: Comment on above: Expected: 02/07/2024, Expires: 4 Start: 02-07-2024 End: 02-07-2024 Patient encounter procedure 02/07/2024 8:00 AM EDT Office Visit [facility] [address] [place] [address] Doreen Le PA-C [address] [place] [address] 3 month follow up [facility] [place] Comment on above: 3 month follow up Start: 01-17-2024 End: 04-17-2024 Comprehensive metabolic 2000 panel - Serum or Plasma COMPREHENSIVE METABOLIC PANEL Lab Routine Chronic diastolic (congestive) heart failure (HCC) Expected: 01/17/2024, Expires: 04/17/2024 [facility] Comment on above: Expected: 01/17/2024, Expires: Start: 01-17-2024 End: 04-17-2024 Lipid 1996 panel - Serum or Plasma LIPID PANEL BASIC Lab Routine Hyperlipidemia with target LDL less than 70 Expected: 01/17/2024, Expires: 04/17/2024 [facility] Work Phone: Comment on above: Expected: 01/17/2024, Expires: Start: 01-17-2024 End: 04-17-2024 Natriuretic peptide.B prohormone N-Terminal [Mass/volume] in Serum or Plasma NT PRO BNP Lab Routine Chronic diastolic (congestive) heart failure (HCC) Expected: 01/17/2024, Expires: 04/17/2024 [facility] Comment on above: Expected: 01/17/2024, Expires: Start: 01-17-2024 End: 01-17-2024 Patient encounter procedure 01/17/2024 9:20 AM EDT Office Visit Cardiology [address] [place] [address] Carla Burdick MD [address] [phone] 6 month follow up Cardiology Comment on above: 6 month follow up Start: 01-09-2024 Urine microalbumin profile [facility] Start: 01-08-2024 ANNUAL PCP TEAM CHRONIC DISEASE VISIT ANNUAL PCP TEAM CHRONIC DISEASE VISIT [facility] Start: 12-02-2023 End: 03-02-2024 CBC W Auto Differential panel - Blood COMPLETE BLOOD COUNT AND DIFFERENTIAL Lab Routine Borderline anemia Acute systolic congestive heart failure (HCC) Expected: 12/02/2023, Expires: 03/02/2024 [facility] Work Phone: Comment on above: Expected: 12/02/2023, Expires: Start: 12-02-2023 End: 03-02-2024 Iron and Iron binding capacity panel - Serum or Plasma IRON AND TIBC Lab Routine Borderline anemia Expected: 12/02/2023, Expires: 03/02/2024 [facility] Comment on above: Expected: 12/02/2023, Expires: Start: 11-30-2023 End: 11-30-2023 Patient encounter procedure 11/30/2023 11:00 AM EDT Office Visit Cardiology [address] [place], [place] [id number] Albin Gu APRN.GRAVEDIGGER [address] [place], [place] [phone] NEW CHF/post hospitalization Cardiology Comment on above: NEW CHF/post hospitalization Start: 11-25-2023 End: 02-24-2024 Basic metabolic 2000 panel - Serum or Plasma BASIC METABOLIC PANEL Lab Routine Chronic diastolic congestive heart failure (HCC) Expected: 11/25/2023, Expires: 02/24/2024 [facility] Work Phone: Comment on above: Expected: 11/25/2023, Expires: Start: 11-25-2023 End: 11-25-2023 Patient encounter procedure 11/25/2023 10:00 AM EDT Office Visit Cardiology [address] [place], [place] [id number] Albin Gu APRN.GRAVEDIGGER [address] [place], [place] [id number] NEW CHF/post hospitalization Cardiology Comment on above: NEW CHF/post hospitalization Start: 11-24-2023 End: 11-24-2023 ambulatory 11/24/2023 11:00 AM EDT Visit (SP) Office Hematology/Oncology [address] [place] [address] [place] [address] [place] [address] 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 [address] [place], [place] [id number] Deysi Collazo, OPTICAL MANAGER.GRAVEDIGGER [address] [place], [place] [phone] [facility] Follow up [facility] Comment on above: [facility] Follow up Start: 11-12-2023 End: 02-11-2024 Basic metabolic 2000 panel - Serum or Plasma BASIC METABOLIC PANEL Lab Routine Stage 3 chronic kidney disease, unspecified whether stage 3a or 3b CKD (HCC) Expected: 11/12/2023, Expires: 02/11/2024 [facility] Work Phone: Comment on above: Expected: 11/12/2023, Expires: Start: 11-09-2023 End: 11-09-2023 Patient encounter procedure [facility] Comment on above: Carotid artery stenosis, asymptomatic, b ilateral [I65.23] PVD (peripheral vasc ular disease) with claudication (HCC) [I73.9] follow up after test ing Start: 11-08-2023 End: 11-08-2023 Patient encounter procedure 11/08/2023 4:30 PM EDT Office Visit Cardiology [address] [place] [address] Bere Boykin, OPTICAL MANAGER.GRAVEDIGGER [address] [place] [address] Follow up Cardiology Comment on above: Follow up Start: 11-04-2023 End: 11-04-2023 Patient encounter procedure 11/04/2023 8:00 AM EDT Office Visit [facility] [address] [place] [address] Doreen Le PA-C [address] [place] [address] 6 mo follow up [facility] Comment on above: 6 mo follow up Start: 11-02-2023 End: 02-01-2024 Basic metabolic 2000 panel - Serum or Plasma BASIC METABOLIC PANEL Lab Routine Acute systolic congestive heart failure (HCC) Expected: 11/02/2023, Expires: 02/01/2024 [facility] Comment on above: Expected: 11/02/2023, Expires: Start: 10-18-2023 End: 01-17-2024 25-hydroxyvitamin D3 [Mass/volume] in Serum or Plasma VITAMIN D 25 HYDROXY Lab Routine Vitamin D deficiency Expected: 10/18/2023, Expires: 01/17/2024 [facility] Work Phone: Comment on above: Expected: 10/18/2023, Expires: 4 Start: 10-18-2023 End: 01-17-2024 Basic metabolic 2000 panel - Serum or Plasma BASIC METABOLIC PANEL Lab Routine Acute systolic CHF (congestive heart failure) (HCC) Expected: 10/18/2023, Expires: 01/17/2024 [facility] Work Phone: Comment on above: Expected: 10/18/2023, Expires: Start: 10-18-2023 End: 01-17-2024 CBC panel - Blood by Automated count COMPLETE BLOOD COUNT Lab Routine Acute systolic CHF (congestive heart failure) (HCC) Expected: 10/18/2023, Expires: 01/17/2024 [facility] Work Phone: Comment on above: Expected: 10/18/2023, Expires: 4 Start: 10-18-2023 End: 01-17-2024 Natriuretic peptide.B prohormone N-Terminal [Mass/volume] in Serum or Plasma NT PRO BNP Lab Routine Acute systolic CHF (congestive heart failure) (HCC) Expected: 10/18/2023, Expires: 01/17/2024 [facility] Work Phone: Comment on above: Expected: 10/18/2023, Expires: 4 Start: 10-15-2023 End: 01-14-2024 Basic metabolic 2000 panel - Serum or Plasma BASIC METABOLIC PANEL Lab Routine 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) Dilated cardiomyopathy (HCC) Expected: 10/15/2023, Expires: 01/14/2024 [facility] Work Phone: Comment on above: Expected: 10/15/2023, Expires: Start: 10-15-2023 End: 01-14-2024 Natriuretic peptide.B prohormone N-Terminal [Mass/volume] in Serum or Plasma NT PRO BNP Lab Routine 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) Dilated cardiomyopathy (HCC) Expected: 10/15/2023, Expires: 01/14/2024 [facility] Work Phone: Comment on above: Expected: 10/15/2023, Expires: 4 Start: 10-07-2023 ANNUAL PCP TEAM CHRONIC DISEASE VISIT ANNUAL PCP TEAM CHRONIC DISEASE VISIT [facility] Start: 10-07-2023 Hemoglobin A1c measurement HbA1C [facility] Start: 10-07-2023 Hemoglobin A1c/Hemoglobin.total in Blood HbA1C [facility] Start: 10-06-2023 HEMOGLOBIN/HEMATOCRIT HEMOGLOBIN/HEMATOCRIT [facility] Start: 10-06-2023 Hepatitis B surface antibody level LDL CHOLESTEROL [facility] Start: 10-06-2023 SERUM CREATININE SERUM CREATININE [facility] Start: 09-29-2023 BP CONTROLLED (<130/80) BP CONTROLLED (<130/80) [facility] Start: 07-07-2023 ANNUAL PCP TEAM CHRONIC DISEASE VISIT ANNUAL PCP TEAM CHRONIC DISEASE VISIT [facility] Start: 07-05-2023 Advance Directive Discussion Advance Directive Discussion [facility] Start: 07-05-2023 Behavioral Health Screening Behavioral Health Screening [facility] Start: 07-05-2023 Depression Assessment Depression Assessment [facility] Start: 07-03-2023 Hemoglobin A1c/Hemoglobin.total in Blood HBA1C [facility] Start: 05-14-2023 HEMOGLOBIN/HEMATOCRIT HEMOGLOBIN/HEMATOCRIT [facility] Start: 05-14-2023 SERUM CREATININE SERUM CREATININE [facility] Start: 04-15-2023 HEMOGLOBIN/HEMATOCRIT HEMOGLOBIN/HEMATOCRIT [facility] Start: 04-14-2023 Hepatitis C antibody, confirmatory test DILATED RETINAL EXAM [facility] Start: 04-07-2023 End: 06-07-2023 ALBUMIN/CREAT RATIO RND UR ALBUMIN/CREAT RATIO RND UR Lab Routine Type 2 diabetes mellitus with diabetic peripheral angiopathy without gangrene, without long-term current use of insulin (HCC) Expected: 04/07/2023, Expires: 06/07/2023 [facility] Work Phone: Comment on above: Expected: 04/07/2023, Expires: 3 Start: 04-07-2023 End: 06-07-2023 CBC W Auto Differential panel - Blood CBC + DIFF Lab Routine Primary hypertension Gastroesophageal reflux disease without esophagitis Chronic renal failure, stage 3b (HCC) Expected: 04/07/2023, Expires: 06/07/2023 [facility] Work Phone: Comment on above: Expected: 04/07/2023, [...] of insulin (HCC) Expected: 04/07/2023, Expires: 06/07/2023 [facility] Work Phone: Comment on above: Expected: 04/07/2023, Expires: 3 Start: 04-07-2023 End: 06-07-2023 Ferritin [Mass/volume] in Serum or Plasma FERRITIN BLD Lab Routine Iron 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 Expected: 04/07/2023, Expires: 06/07/2023 [facility] [place] Work Phone: Comment on above: Expected: 04/07/2023, Expires: 3 Start: 04-07-2023 End: 06-07-2023 Hemoglobin A1c in Blood HGB A1C Lab Routine Type 2 diabetes mellitus with diabetic peripheral angiopathy without gangrene, without long-term current use of insulin (HCC) Expected: 04/07/2023, Expires: 06/07/2023 [facility] [place] Work Phone: Comment on above: Expected: 04/07/2023, Expires: 3 Start: 04-07-2023 End: 06-07-2023 Iron and Iron binding capacity panel - Serum or Plasma IRON + TIBC Lab Routine 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 Expected: 04/07/2023, Expires: 06/07/2023 [facility] [place] Work Phone: Comment on above: Expected: 04/07/2023, Expires: 3 Start: 04-07-2023 End: 06-07-2023 Lipid 1996 panel - Serum or Plasma LIPID PANEL BASIC Lab Routine Hyperlipidemia with target LDL less than 70 Expected: 04/07/2023, Expires: 06/07/2023 [facility] [place] Work Phone: Comment on above: Expected: 04/07/2023, Expires: 3 Start: 04-06-2023 3 comp foot exam completed DIABETIC FOOT EXAM [facility] Start: 04-06-2023 ANNUAL PCP TEAM CHRONIC DISEASE VISIT ANNUAL PCP TEAM CHRONIC DISEASE VISIT [facility] Start: 04-06-2023 Diabetic foot examination Diabetic Foot Exam [facility] Start: 04-06-2023 HEMOGLOBIN/HEMATOCRIT HEMOGLOBIN/HEMATOCRIT [facility] Start: 04-06-2023 SERUM CREATININE SERUM CREATININE [facility] Start: 03-22-2023 HEMOGLOBIN/HEMATOCRIT HEMOGLOBIN/HEMATOCRIT [facility] Start: 03-22-2023 SERUM CREATININE SERUM CREATININE [facility] Start: 03-21-2023 HEMOGLOBIN/HEMATOCRIT HEMOGLOBIN/HEMATOCRIT [facility] Start: 03-21-2023 SERUM CREATININE SERUM CREATININE [facility] Start: 03-20-2023 HEMOGLOBIN/HEMATOCRIT HEMOGLOBIN/HEMATOCRIT [facility] Start: 03-20-2023 SERUM CREATININE SERUM CREATININE [facility] Start: 03-19-2023 ANNUAL PCP TEAM CHRONIC DISEASE VISIT ANNUAL PCP TEAM CHRONIC DISEASE VISIT [facility] Start: 03-19-2023 HEMOGLOBIN/HEMATOCRIT HEMOGLOBIN/HEMATOCRIT [facility] Start: 03-19-2023 SERUM CREATININE SERUM CREATININE [facility] Start: 03-05-2023 End: 09-29-2023 Echocardiography ECHO Cardiology Routine History of prosthetic aortic valve replacement H/O rheumatic heart disease Expected: 03/05/2023, Expires: 09/29/2023 [facility] [place] Work Phone: Comment on above: Expected: 03/05/2023, Expires: Start: 03-05-2023 Influenza vaccination [facility] Start: 02-27-2023 HEMOGLOBIN/HEMATOCRIT HEMOGLOBIN/HEMATOCRIT [facility] Start: 02-27-2023 SERUM CREATININE SERUM CREATININE [facility] Start: 02-24-2023 HEMOGLOBIN/HEMATOCRIT HEMOGLOBIN/HEMATOCRIT [facility] Start: 02-24-2023 SERUM CREATININE SERUM CREATININE [facility] Start: 02-23-2023 HEMOGLOBIN/HEMATOCRIT HEMOGLOBIN/HEMATOCRIT [facility] Start: 02-22-2023 SERUM CREATININE SERUM CREATININE [facility] Start: 02-20-2023 ANNUAL PCP TEAM CHRONIC DISEASE VISIT ANNUAL PCP TEAM CHRONIC DISEASE VISIT [facility] Start: 02-17-2023 HEMOGLOBIN/HEMATOCRIT HEMOGLOBIN/HEMATOCRIT [facility] Start: 01-16-2023 ANNUAL PCP TEAM CHRONIC DISEASE VISIT ANNUAL PCP TEAM CHRONIC DISEASE VISIT [facility] Start: 01-09-2023 HEMOGLOBIN/HEMATOCRIT HEMOGLOBIN/HEMATOCRIT [facility] Start: 01-09-2023 SERUM CREATININE SERUM CREATININE [facility] Start: 01-01-2023 BP CONTROLLED (<130/80) BP CONTROLLED (<130/80) [facility] Start: 12-29-2022 HEMOGLOBIN/HEMATOCRIT HEMOGLOBIN/HEMATOCRIT [facility] Start: 12-26-2022 HEMOGLOBIN/HEMATOCRIT HEMOGLOBIN/HEMATOCRIT [facility] Start: 12-16-2022 Hepatitis B screening URINE ALBUMIN:CREATININE RATIO [facility] Start: 12-15-2022 Adult depression screening assessment DEPRESSION SCREENING [facility] Start: 12-15-2022 ANNUAL PCP TEAM CHRONIC DISEASE VISIT ANNUAL PCP TEAM CHRONIC DISEASE VISIT [facility] Start: 12-15-2022 BP CONTROLLED (<130/80) BP CONTROLLED (<130/80) [facility] Start: 12-15-2022 HEMOGLOBIN/HEMATOCRIT HEMOGLOBIN/HEMATOCRIT [facility] Start: 12-15-2022 Hepatitis B surface antibody level LDL CHOLESTEROL [facility] Start: 12-03-2022 DEPRESSION ASSESSMENT DEPRESSION ASSESSMENT [facility] Comment on above: Postponed from 07/05/2022 (Declined at t his time) Start: 11-28-2022 HEMOGLOBIN/HEMATOCRIT HEMOGLOBIN/HEMATOCRIT [facility] Start: 11-28-2022 SERUM CREATININE SERUM CREATININE [facility] Start: 10-06-2022 End: 12-06-2022 Iron and Iron binding capacity panel - Serum or Plasma IRON + TIBC Lab Routine Iron malabsorption Expected: 10/06/2022, Expires: 12/06/2022 [facility] [place] Work Phone: Comment on above: Expected: 10/06/2022, [...] of insulin (HCC) Expected: 10/05/2022, Expires: 12/05/2022 [facility] [place] Work Phone: Comment on above: Expected: 10/05/2022, Expires: 3 Start: 10-05-2022 End: 12-05-2022 Comprehensive metabolic 2000 panel - Serum or Plasma COMP METABOLIC PANEL Lab Routine Atrial fibrillation, unspecified type (HCC) Hyperlipidemia with target LDL less than 70 Expected: 10/05/2022, Expires: 12/05/2022 [facility] [place] Work Phone: Comment on above: Expected: 10/05/2022, Expires: 3 Start: 09-28-2022 End: 11-28-2022 Lipid 1996 panel - Serum or Plasma LIPID PANEL BASIC Lab Routine Hyperlipidemia with target LDL less than 70 Expected: 09/28/2022, Expires: 11/28/2022 [facility] [place] Work Phone: Comment on above: Expected: 09/28/2022, Expires: 3 Start: 09-17-2022 Hemoglobin A1c/Hemoglobin.total in Blood HBA1C [facility] Start: 09-16-2022 ANNUAL PCP TEAM CHRONIC DISEASE VISIT ANNUAL PCP TEAM CHRONIC DISEASE VISIT [facility] Start: 09-16-2022 BP CONTROLLED (<130/80) BP CONTROLLED (<130/80) [facility] Start: 09-16-2022 SHINGRIX VACCINE (2 of 2) SHINGRIX VACCINE (2 of 2) [facility] Comment on above: Postponed from 01/03/2019 (Insurance Cov erage) Start: 09-13-2022 HEMOGLOBIN/HEMATOCRIT HEMOGLOBIN/HEMATOCRIT [facility] Start: 09-02-2022 End: 05-09-2023 US KIDNEY/BLADDER US KIDNEY/BLADDER Radiology Routine Neoplasm of uncertain behavior of right kidney Expected: 09/02/2022, Expires: 05/09/2023 [facility] [place] Work Phone: Comment on above: Expected: 09/02/2022, Expires: 3 Start: 07-07-2022 End: 05-06-2023 Ct thorax w/o contrast material CT CHEST WO IVCON Radiology Routine Lung nodule, solitary Expected: 07/07/2022, Expires: 05/06/2023 [facility] [place] Work Phone: Comment on above: Expected: 07/07/2022, Expires: 3 Start: 07-05-2022 ADVANCE DIRECTIVE DISCUSSION ADVANCE DIRECTIVE DISCUSSION [facility] Start: 07-05-2022 DEPRESSION ASSESSMENT DEPRESSION ASSESSMENT [facility] Start: 06-16-2022 Hemoglobin A1c/Hemoglobin.total in Blood HBA1C [facility] Start: 06-02-2022 SERUM CREATININE SERUM CREATININE [facility] Start: 05-07-2022 End: 07-07-2022 Basic metabolic 2000 panel - Serum or Plasma BASIC METABOLIC PNL Lab Routine Stage 3b chronic kidney disease (HCC) Iron deficiency anemia due to chronic blood loss Expected: 05/07/2022, Expires: 07/07/2022 [facility] [place] Work Phone: Comment on above: Expected: 05/07/2022, Expires: 3 Start: 05-07-2022 End: 07-07-2022 CBC panel - Blood by Automated count CBC Lab Routine Stage 3b chronic kidney disease (HCC) Iron deficiency anemia due to chronic blood loss Expected: 05/07/2022, Expires: 07/07/2022 [facility] [place] Work Phone: Comment on above: Expected: 05/07/2022, Expires: 3 Start: 03-30-2022 End: 05-30-2022 Basic metabolic 2000 panel - Serum or Plasma BASIC METABOLIC PNL Lab Routine Primary hypertension Expected: 03/30/2022, Expires: 05/30/2022 [facility] [place] Work Phone: Comment on above: Expected: 03/30/2022, Expires: 2 Start: 03-05-2022 Influenza vaccination INFLUENZA (#1) [facility] Start: 02-20-2022 End: 04-22-2022 Basic metabolic 2000 panel - Serum or Plasma [facility] [place] Work Phone: Comment on above: Expected: 02/20/2022, Expires: 2 Start: 02-19-2022 Hepatitis C antibody, confirmatory test DILATED RETINAL EXAM [facility] Start: 01-21-2022 End: 01-21-2023 SARS-CoV-2 (COVID-19) RNA [Presence] in Respiratory specimen by RANDOLPH with probe detection PRE-PROCEDURE & PRE-OPERATIVE COVID Microbiology Routine Paroxysmal atrial fibrillation (HCC) Expected: 01/21/2022, Expires: 01/21/2023 [facility] [place] Work Phone: Comment on above: Expected: 01/21/2022, Expires: 3 Start: 12-30-2021 Administration of blood product [facility] Work Phone: Start: 12-30-2021 [facility] Work Phone: Start: 12-27-2021 End: 02-26-2022 CBC W Auto Differential panel - Blood CBC + DIFF Lab Routine Anemia, unspecified type Expected: 12/27/2021, Expires: 02/26/2022 [facility] [place] Work Phone: Comment on above: Expected: 12/27/2021, Expires: 2 Start: 12-27-2021 End: 02-26-2022 Iron and Iron binding capacity panel - Serum or Plasma IRON + TIBC Lab Routine Anemia, unspecified type Expected: 12/27/2021, Expires: 02/26/2022 [facility] [place] Work Phone: Comment on above: Expected: 12/27/2021, Expires: 2 Start: 12-15-2021 End: 02-14-2022 ALBUMIN/CREAT RATIO RND UR ALBUMIN/CREAT RATIO RND UR Lab Routine Type 2 diabetes mellitus with diabetic peripheral angiopathy without gangrene, without long-term current use of insulin (HCC) Expected: 12/15/2021, Expires: 02/14/2022 [facility] [place] Work Phone: Comment on above: Expected: 12/15/2021, Expires: 2 Start: 12-11-2021 Hepatitis B surface antibody level LDL CHOLESTEROL [facility] Start: 11-26-2021 End: 01-26-2022 CBC panel - Blood by Automated count CBC Lab Routine PAD (peripheral artery disease) (HCC) Anemia due to chronic illness Expected: 11/26/2021, Expires: 01/26/2022 [facility] [place] Work Phone: Comment on above: Expected: 11/26/2021, Expires: 2 Start: 11-26-2021 End: 01-26-2022 Renal function 2000 panel - Serum or Plasma RENAL FUNCTION PANEL Lab Routine PAD (peripheral artery disease) (HCC) Expected: 11/26/2021, Expires: 01/26/2022 [facility] [place] Work Phone: Comment on above: Expected: 11/26/2021, Expires: 2 Start: 07-13-2021 COVID-19 VACCINE (4 - Booster for Pfizer series) COVID-19 VACCINE (4 - Booster for Pfizer series) [facility] Start: 07-12-2021 Hepatitis B screening URINE ALBUMIN:CREATININE RATIO [facility] Start: 07-05-2021 ADVANCE DIRECTIVE DISCUSSION ADVANCE DIRECTIVE DISCUSSION [facility] Start: 07-05-2021 DEPRESSION ASSESSMENT DEPRESSION ASSESSMENT [facility] Start: 06-12-2021 Hemoglobin A1c/Hemoglobin.total in Blood HBA1C [facility] Start: 05-08-2021 COVID-19 VACCINE (4 - Booster for Pfizer series) COVID-19 VACCINE (4 - Booster for Pfizer series) [facility] Start: 05-08-2021 COVID-19 VACCINE (4 - Pfizer series) COVID-19 VACCINE (4 - Pfizer series) [facility] Start: 2020 RSV Vaccine (1 - 1-dose 75+ series) RSV Vaccine (1 - 1-dose 75+ series) [facility] Start: 07-18-2020 Adult depression screening assessment DEPRESSION SCREENING [facility] Start: 05-25-2019 End: 05-25-2019 Office Visit 05/25/2019 Office Visit Cardiovascular Medicine Mars Chung, DO [address] [place] [address] [facility] Start: 03-05-2019 Influenza vaccination INFLUENZA VACCINE (#1) [facility] Start: 01-03-2019 SHINGRIX VACCINE (2 of 2) SHINGRIX VACCINE (2 of 2) [facility] Start: 01-08-2015 3 comp foot exam completed DIABETIC FOOT EXAM [facility] Start: 2010 Pneumococcal vaccination PNEUMOCOCCAL VACCINE SERIES (1 of 2 - PCV13) [facility] Start: 2005 Hepatitis B Vaccine (1 of 3 - Risk 3-dose series) Hepatitis B Vaccine (1 of 3 - Risk 3-dose series) [facility] Start: 2005 RSV Vaccine (1 - 1-dose 60+ series) RSV Vaccine (1 - 1-dose 60+ series) [facility] Start: 1995 Colonoscopy COLON CANCER SCREENING DISCUSSION [facility] Start: 1995 Zoster vaccine hzv live for subcutaneous use ZOSTER (SHINGLES) VACCINE (1 of 2) [facility] Start: 1985 Fasting lipid profile LIPID SCREENING [facility] Start: 1985 Screening mammography MAMMOGRAM SCREENING DISCUSSION [facility] Start: 1966 Screening for malignant neoplasm of cervix PAP SMEAR DISCUSSION [facility] Start: 1964 Third diphtheria, tetanus and acellular pertussis (DTaP) vaccination TDAP (ADULT) [facility] Start: 1963 Anxiety Screening Anxiety Screening [facility] Start: 1963 BP CONTROLLED (<130/80) BP CONTROLLED (<130/80) [facility] Start: 1963 Depression Screening Depression Screening [facility] Start: 1963 Tetanus vaccination TETANUS [facility] Start: 1945 Hepatitis C antibody, confirmatory test HEPATITIS C VIRUS SCREENING [facility] Start: 1945 Potassium [Moles/Vol] POTASSIUM [facility] Start: 1945 Screening for osteoporosis DEXA SCAN DISCUSSION [facility] Alanine aminotransfe rase [Enzymatic activity/volume] in Serum or Plasma [facility] Albumin [Mass/volume ] in Serum or Plasma [facility] Alkaline phosphatase [Enzymatic activity/volume] in Serum or Plasma [facility] Anion gap in Serum o r Plasma [facility] Anion gap in Serum o r Plasma [facility] Bacteria identified in Unspecified specimen by Anaerobe culture [facility] Basic metabolic 2008 panel with ionized calcium - Serum or Plasma [facility] Bilirubin, total measurement [facility] BUN/Creatinine ratio [facility] BUN/Creatinine ratio [facility] Calcium [Mass/volume ] in Serum or Plasma [facility] Calcium [Mass/volume ] in Serum or Plasma [facility] Carbon dioxide, tota l [Moles/volume] in Central venous blood [facility] Carbon dioxide, tota l [Moles/volume] in Central venous blood [facility] CBC W Auto Different ial panel - Blood [facility] Cholesterol [Mass/vo lume] in Serum or Plasma [facility] Cholesterol in HDL [Mass/volume] in Serum or Plasma [facility] COVID & INFLUENZA A/ B & RSV NAAT, ROUTINE COVID & INFLUENZA A/B & RSV NAAT, ROUTINE Microbiology Routine Influenza-like illness Ordered: 07/05/2023 [facility] [place] Work Phone: Comment on above: Ordered: 07/05/2023 Creatinine [Mass/vol ume] in Serum or Plasma [facility] Creatinine [Mass/vol ume] in Serum or Plasma [facility] End: 01-21-2023 ECG COMPLETE ECG COMPLETE ECG Routine Paroxysmal atrial fibrillation (HCC) 1 Occurrences starting 01/21/2022 until 01/21/2023 [facility] [place] Work Phone: Comment on above: 1 Occurrences starting 01/21/2022 until 01/21/2023 End: 02-09-2023 ECG COMPLETE ECG COMPLETE ECG Routine Paroxysmal atrial fibrillation (HCC) Presence of Watchman left atrial appendage closure device 1 Occurrences starting 02/09/2022 until 02/09/2023 [facility] [place] Work Phone: Comment on above: 1 Occurrences starting 02/09/2022 until 02/09/2023 End: 03-19-2023 ECG COMPLETE ECG COMPLETE ECG Routine Aortic prosthetic valve regurgitation, 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) 1 Occurrences starting 03/19/2022 until 03/19/2023 [facility] [place] Work Phone: Comment on above: 1 Occurrences starting 03/19/2022 until 03/19/2023 ECG COMPLETE ECG COMPLETE ECG 03/19/2022 11:04 AM EDT [facility] ECG COMPLETE [facility] Work Phone: Comment on above: Ordered: 10/18/2023 ECG COMPLETE ECG COMPLETE ECG 11/08/2023 4:52 PM EDT [facility] End: 01-21-2023 ECHO TRANSESOPHAGEAL ECHO TRANSESOPHAGEAL Cardiology Routine Paroxysmal atrial fibrillation (HCC) 1 Occurrences starting 01/21/2022 until 01/21/2023 [facility] [place] Work Phone: Comment on above: 1 Occurrences starting 01/21/2022 until 01/21/2023 End: 02-09-2023 ECHO TRANSESOPHAGEAL ECHO TRANSESOPHAGEAL Cardiology Routine Paroxysmal atrial fibrillation (HCC) Presence of Watchman left atrial appendage closure device 1 Occurrences starting 02/09/2022 until 02/09/2023 [facility] [place] Work Phone: Comment on above: 1 Occurrences starting 02/09/2022 until 02/09/2023 ECHO TRANSESOPHAGEAL ECHO TRANSE SOPHAGEAL Cardiology Routine Longstanding persistent atrial fibrillation (HCC) Presence of Watchman left atrial appendage closure device Ordered: 03/04/2022 [facility] [place] Work Phone: Comment on above: Ordered: 03/04/2022 End: 10-17-2024 Echocardiography ECHO Cardiology Routine Acute systolic CHF (congestive heart failure) (HCC) 1 Occurrences starting 10/18/2023 until 10/17/2024 [facility] [place] Work Phone: Comment on above: 1 Occurrences starting 10/18/2023 until 10/17/2024 End: 01-01-2026 Echocardiography ECHO Cardiology Routine Chronic diastolic (congestive) heart failure (HCC) History of prosthetic aortic valve replacement Acute on chronic diastolic congestive heart failure (HCC) 1 Occurrences starting 01/01/2025 until 01/01/2026 [facility] [place] Work Phone: Comment on above: 1 Occurrences starting 01/01/2025 until 01/01/2026 End: 01-01-2023 EGD DIAGNOSTIC EGD DIAGNOSTIC Endoscopy Routine Acute blood loss anemia Heme + stool Epigastric pain 1 Occurrences starting 01/01/2022 until 01/01/2023 [facility] [place] Work Phone: Comment on above: 1 Occurrences starting 01/01/2022 until 01/01/2023 Erythrocyte mean corpuscular volume determination [facility] Erythrocyte mean corpuscular volume determination [facility] Ferritin [Mass/volum e] in Serum or Plasma [facility] Glucose [Mass/volume ] in Serum or Plasma [facility] Glucose [Mass/volume ] in Serum or Plasma [facility] Hematocrit [Volume Fraction] of Blood [facility] Hematocrit [Volume Fraction] of Blood [facility] Hemoglobin [Mass/vol ume] in Blood [facility] Hemoglobin [Mass/vol ume] in Blood [facility] Hemoglobin.braden rhodeslower [Presence] in Stool by Immunoassay FECAL OCCULT BLOOD TEST Lab Routine Heme + stool Ordered: 12/15/2021 [facility] [place] Work Phone: Comment on above: Ordered: 12/15/2021 Hemoglobin.braden rhodeslower [Presence] in Stool by Immunoassay IMMUNOCHEMICAL FECAL OCCULT BLOOD TEST Lab Routine Acute systolic CHF (congestive heart failure) (HCC) Ordered: 11/04/2023 [facility] [place] Work Phone: Comment on above: Ordered: 11/04/2023 Iron [Mass/mass] in Unspecified specimen [facility] Iron and Iron bindin g capacity panel - Serum or Plasma [facility] Iron saturation [Mas s Fraction] in Serum or Plasma [facility] Leukocytes [#/volume ] in Blood [facility] Leukocytes [#/volume ] in Blood [facility] Low density lipoprot ein cholesterol measurement [facility] Magnesium measurement [facility] Mean corpuscular hemoglobin concentration determination [facility] Mean corpuscular hemoglobin concentration determination [facility] Mean corpuscular hemoglobin determination [facility] Mean corpuscular hemoglobin determination [facility] Measurement of renal function [facility] Measurement of renal function [facility] End: 08-06-2023 Mra head w/o & w/contrast material MRA BRAIN WO/W IVCON Radiology Routine 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 B prohormone N-Terminal [Mass/volume] in Serum or Plasma [facility] Neutrophil count [facility] Neutrophil count [facility] Neutrophil percent differential count [facility] Neutrophil percent differential count [facility] Patient Education [facility] Work Phone: Platelets [#/volume] in Blood [facility] Platelets [#/volume] in Blood [facility] Potassium measurement [facility] [facility] Potassium measurement [facility] End: 01-08-2024 PVR ANK PRESS [facility] PVR ANK PRESS [facility] Vascular Lab Routine 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HCC) Pain in both lower legs Atherosclerosis of [place] artery of both lower extremities with intermittent claudication (HCC) 1 Occurrences starting 01/07/2023 until 01/08/2024 [facility] Work Phone: Comment on above: 1 Occurrences starting 01/07/2023 until 01/08/2024 End: 01-08-2024 PVR LEG [facility] PVR LEG [facility] Vascular Lab Routine 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HCC) Pain in both lower legs Atherosclerosis of [place] artery of both lower extremities with intermittent claudication (HCC) 1 Occurrences starting 01/07/2023 until 01/08/2024 [facility] Work Phone: Comment on above: 1 Occurrences starting 01/07/2023 until 01/08/2024 Red blood cell count [facility] Red blood cell count [facility] Red cell distributio n width determination [facility] Red cell distributio n width determination [facility] Serum chloride measurement [facility] Serum chloride measurement [facility] Sodium measurement [facility] Sodium measurement [facility] SURGICAL PATHOLOGY [facility] Work Phone: Comment on above: Release Upon Ordering for 1 Occurrences starting 01/02/2022, 1 completed Total cholesterol:HD L ratio measurement [facility] Total iron binding capacity measurement [facility] Total protein measurement [facility] Triglycerides measurement [facility] Troponin T.cardiac [Mass/volume] in Serum or Plasma by High sensitivity method [facility] Urea nitrogen [Mass/volume] in Serum or Plasma [facility] Urea nitrogen [Mass/volume] in Serum or Plasma [facility] End: 01-08-2024 US CAROTID ARTERIES [facility] US CAROTID ARTERIES [facility] Vascular Lab Routine Bilateral carotid artery stenosis 1 Occurrences starting 01/07/2023 until 01/08/2024 [facility] Work Phone: Comment on above: 1 Occurrences starting 01/07/2023 until 01/08/2024 End: 12-20-2025 US Mesenteric arteries US MESENTERIC ARTERY [facility] Vascular Lab Routine Superior mesenteric artery stenosis (HCC) 1 Occurrences starting 12/20/2024 until 12/20/2025 [facility] Work Phone: Comment on above: 1 Occurrences starting 12/20/2024 until 12/20/2025 VLDL cholesterol measurement [facility] Immunizations Immunization Date Immunization Notes Care Provider [facility] 07-07-2024 influenza, high dose seasonal, preservative-free Melida Eugene ANDERSONGRAVEDIGGER Work Phone: [facility] 07-07-2024 influenza virus vacc ine, unspecified formulation Carla Burdick MD Work Phone: [facility] 04-12-2023 influenza (HD-IIV4) vaccine, age 65+ yr, high dose, quadrivalent, PF (FLUZONE HIGH-DOSE) Ct (I-Stat) Work Phone: [facility] 04-12-2023 influenza virus vacc ine, unspecified formulation Carla Burdick MD Work Phone: [facility] 05-22-2022 influenza (aIIV4) vaccine, age 65+ yr, quadrivalent, PF (FLUAD QUADRIVALENT) NA Rey HAMLIN Work Phone: [facility] 05-22-2022 influenza, high-dose , quadrivalent vaccine (FLUZONE HIGH DOSE QUADRIVALENT) Sonny Lund MD Work Phone: [facility] 05-22-2022 influenza virus vacc ine, unspecified formulation Yin Joseph MD Work Phone: [facility] 05-20-2021 influenza, high-dose , quadrivalent vaccine (FLUZONE HIGH DOSE QUADRIVALENT) Chandler Swan MD Work Phone: [facility] 10-09-2020 COVID-19 vaccine, ag e 12+ yr ([employer] - PURPLE TOP) Chandler Swan MD Work Phone: [facility] 09-18-2020 COVID-19 vaccine, ag e 12+ yr ([employer] - PURPLE [facility]) Chandler Swan MD Work Phone: [facility] 05-17-2020 influenza, high-dose , quadrivalent vaccine (FLUZONE HIGH DOSE QUADRIVALENT) Chandler Swan MD Work Phone: [facility] 05-09-2019 influenza, high dose seasonal, preservative-free Chandler Swan MD Work Phone: [facility] 11-08-2018 zoster vaccine recombinant Chandler Swan MD Work Phone: [facility] Work Phone: 05-09-2018 Seasonal trivalent influenza vaccine, adjuvanted, preservative free Chandler Swan MD Work Phone: [facility] 05-05-2017 influenza nasal, unspecified formulation Chandler Swan MD Work Phone: [facility] 05-05-2017 influenza, injectabl e, quadrivalent, contains preservative Chandler Swan MD Work Phone: [facility] 05-05-2017 influenza, seasonal, injectable Chandler Swan MD Work Phone: [facility] 05-05-2017 influenza virus vacc ine, unspecified formulation [facility] 04-05-2017 influenza, injectabl e, quadrivalent, preservative free Ct (I-Stat) Work Phone: [facility] 04-05-2017 influenza, seasonal, injectable [facility] 04-05-2017 influenza, seasonal, injectable, preservative free Chandler Swan MD Work Phone: [facility] 11-25-2016 pneumococcal conjuga te vaccine, 13 valent Chandler Swan MD Work Phone: [facility] Work Phone: 04-07-2016 influenza, high dose seasonal, preservative-free Chandler Swan MD Work Phone: [facility] Work Phone: 01-08-2014 tetanus toxoid, redu javid diphtheria toxoid, and acellular pertussis vaccine, adsorbed Chandler Swan MD Work Phone: [facility] Work Phone: 06-06-2013 pneumococcal polysaccharide vaccine, 23 valent Chandler Swan MD Work Phone: [facility] 05-14-2013 influenza nasal, unspecified formulation Chandler Swan MD Work Phone: [facility] 05-14-2013 influenza virus vacc ine, unspecified formulation Chandler Swan MD Work Phone: [facility] 05-14-2013 influenza, seasonal, injectable, preservative free Chandler Swan MD Work Phone: [facility] 05-20-2012 influenza, seasonal, injectable Chandler Swan MD Work Phone: [facility] 04-29-2011 influenza, seasonal, injectable, preservative free Chandler Swan MD Work Phone: [facility] 04-23-2009 influenza, seasonal, injectable Chandler Swan MD Work Phone: [facility] 07-07-1999 pneumococcal polysaccharide vaccine, 23 valkathy Encinas MD Work Phone: [facility] Work Phone: 07-05-1999 pneumococcal polysaccharide vaccine, 23 valent Chandler Swan MD Work Phone: [facility] Payers Date Payer Category Payer Self-pay [id number] 2021 Medicare [id number] 2021 Medicare [id number] 2021 Medicare (Managed Care) PRADEEP NICKERSON [id number] 2021 Private Health Insurance [facility] [id number] 2019 Medicare MEDICARE HUMANA O PPO MEDICARE HUMANA O PPO xxxxxxxxx 2019-Present xxxxxxxxx [id number] 2015 Medicare SELF PAY INSURANCE [id number] Unknown [id number] 2.16840.1.745397.3.579.2. 462 Unknown [id number] 2.840.1.360436.3.579.2. 462 Unknown [id number] 2.16840.1.528183.3.579.2. 462 Unknown [id number] 2.16.840.1.426572.3.579.2. 462 Unknown [id number] 2.16.840.1.214092.3.579.2. 462 Unknown [id number] 2.16840.1.915228.3.579.2. 462 Unknown [id number] 2.16.840.1.199916.3.579.2. 462 Unknown [id number] 2.16840.1.731113.3.579.2. 462 Unknown [id number] 2.16.840.1.411165.3.579.2. 462 Unknown [id number] 2.16.840.1.974088.3.579.2. 462 Unknown [id number] 2.16.840.1.833707.3.579.2. 462 Unknown [id number] 2.840.1.989418.3.579.2. 462 Unknown [id number] 2..840.1.173502.3.579.2. 462 Unknown [id number] 2.840.1.695592.3.579.2. 462 Unknown [id number] 2.840.1.526365.3.579.2. 462 Unknown [id number] 2.840.1.480000.3.579.2. 462 Unknown [id number] 2.840.1.138420.3.579.2. 462 Unknown [id number] 2.840.1.818962.3.579.2. 462 Unknown [id number] 2.840.1.470527.3.579.2. 462 Unknown [id number] 2.840.1.478917.3.579.2. 462 Unknown [id number] 2.840.1.644963.3.579.2. 462 Unknown [id number] 2.840.1.224189.3.579.2. 462 Unknown [id number] 2.840.1.401510.3.579.2. 462 Unknown [id number] 2.840.1.161129.3.579.2. 462 Unknown [id number] 2.840.1.615219.3.579.2. 462 Unknown [id number] 2.840.1.170664.3.579.2. 462 Unknown [id number] 2.16.840.1.208127.3.579.2. 462 Unknown [id number] 2.16.840.1.030849.3.579.2. 462 Unknown [id number] 2.16.840.1.048052.3.579.2. 462 Unknown [id number] 2.16.840.1.301957.3.579.2. 462 Unknown [id number] 2.16.840.1.777679.3.579.2. 462 Unknown [id number] 2.16.840.1.381420.3.579.2. 462 Unknown [id number] 2.16.840.1.509764.3.579.2. 462 Unknown [id number] 2.16.840.1.829421.3.579.2. 462 Unknown [id number] 2.16.840.1.244073.3.579.2. 462 Unknown [id number] 2.16.840.1.454346.3.579.2. 462 Unknown [id number] 2.16.840.1.202554.3.579.2. 462 Unknown [id number] 2.16.840.1.894873.3.579.2. 462 Unknown [id number] 2.16.840.1.774869.3.579.2. 462 Unknown [id number] 2.16.840.1.626055.3.579.2. 462 Unknown [id number] 2.16.840.1.424468.3.579.2. 462 Social History Date Type Detail Facility Start: 01-19-2019 End: 03-22-2025 Tobacco smoking status [facility] Former smoker [facility] Start: 01-19-2019 Tobacco Comment smoked for a y ear, 50 years ago [facility] Start: 01-19-2019 Alcohol Comment occasional wine [employer] [facility] Start: 1945 Sex Assigned At Not on file [facility] Start: 07-05-1965 End: 02-11-1970 History of tobacco use Current smoker [facility] Start: 08-10-2019 End: 04-07-2024 Tobacco use and exposure Smokeless tobacco non-user [facility] Start: 09-16-2021 End: 12-15-2021 Alcohol intake Current drinker of alcohol (finding) [facility] Start: 09-16-2021 End: 01-07-2023 Alcohol intake [facility] Start: 10-25-2019 End: 10-29-2019 History SDOH Alcohol Frequency 2 [facility] Start: 10-25-2019 End: 10-29-2019 History SDOH Alcohol Std Drinks 1 [facility] Start: 01-31-2019 History SDOH Alcohol Comment red wine 2-3 times a week- occasional [facility] Start: 10-29-2019 History SDOH Social Connections Phone 5 [facility] Start: 10-29-2019 End: 02-24-2022 History SDOH Social Connections Jew 3 [facility] Start: 10-29-2019 Education 15 [facility] Start: 09-05-2021 End: 05-14-2022 Exposure to SARS-CoV-2 (event) Not sure [facility] Start: 10-14-2021 End: 01-23-2022 Exposure to SARS-CoV-2 (event) Unable to assess [facility] Start: 02-13-2021 Tobacco smoking stat us OHIS Unknown if ever smoked [facility] Work Phone: Start: 1945 Sex Assigned At Female W [facility] Start: 07-05-1965 End: 02-11-1970 History of tobacco use Cigarette Smoker [facility] Start: 06-08-2022 End: 12-20-2024 Alcohol intake Ex-drinker (finding) [facility] Start: 01-07-2023 End: 12-11-2024 Tobacco use panel [facility] Start: 06-05-2012 How hard is it for y ou to pay for the very basics like food, housing, medical care, and heating Patient refused [facility] (I/We) worried marcella forman (my/our) food would run out before (I/we) got money to buy more. DK or Refused [facility] Do you belong to any clubs or organizations such as scientology groups, unions, fraternal or athletic groups, or school groups? Yes [facility] Are you now , , , , never or living with a partner? [facility] How often to you hav e a drink containing alcohol? Monthly or less [facility] How many standard dr inks containing alcohol do you have on a typical day? 1 or 2 [facility] How often do you hav e 6 or more drinks on 1 occasion? Never [facility] Do you feel stress - tense, restless, nervous, or anxious, or unable to sleep at night because your mind is troubled all the time - these days [OSQ] Not at all [facility] Has the [employer], or water [employer] threatened to shut off services in your home in past 12Mo No [facility] (I/We) worried marcella er (my/our) food would run out before (I/we) got money to buy more. Never true [facility] Start: 01-07-2025 End: 01-11-2025 Tobacco smoking status NHIS Never smoked tobacco (finding) [facility] Start: 11-15-2017 Alcohol Alcohol [facility] Start: 11-15-2017 Drugs Drugs [facility] Start: 11-15-2017 Lives Lives [facility] Start: 01-11-2025 Tobacco Use Tobacco Use [facility] Medical Equipment Procedure Code Equipment Code Equipment Origin al Text Equipment Identifier Dates Test blood sugar (s) 2 times daily. Dx: Type 2 DM - Controlled E11.9 Insulin: No [id number] Start: 01-19-2019 Comment on above: Test blood sugar(s) 2 times daily. Dx: Type 2 DM - Controlled E11.9 Insulin: No [id number] Sania Xt [id number] Start: 10-21-2020 [id number] [employer] Selam Surecaro [id number] Start: 10-21-2020 [id number] [employer] Hawkins [id number] Start: 10-21-2020 Goals Date Patient Goal Desired Activity /State Personal health goal Functional Status Date Assessment Result Facility 01-11-2025 Functional status Chair [facility] Work Phone: 12-12-2024 Are you deaf, or do you have serious difficulty hearing Yes 12/12/2024 10:12 AM EDT Lizeth Jordan RN Yes [facility] 12-12-2024 Are you blind, or do you have serious difficulty seeing, even when wearing glasses No 12/12/2024 10:12 AM EDT Lizeth Jordan RN No [facility] 12-12-2024 Do you have serious difficulty walking or climbing stairs No 12/12/2024 10:12 AM EDT Lizeth Jordan RN No [facility] 12-12-2024 Do you have difficul ty dressing or bathing No 12/12/2024 10:12 AM EDT Lizeth Jordan RN No [facility] 12-12-2024 Because of a physica l, mental, or emotional condition, do you have difficulty doing errands alone such as visiting a physician's office or shopping No 12/12/2024 10:12 AM EDT Lizeth Jordan RN No [facility] 11-12-2023 Are you deaf, or do you have serious difficulty hearing No 11/12/2023 3:37 PM EDT Raina Coppola RN No [facility] 11-12-2023 Are you blind, or do you have serious difficulty seeing, even when wearing glasses No 11/12/2023 3:37 PM EDT Raina Coppola RN No [facility] 11-12-2023 Do you have serious difficulty walking or climbing stairs No 11/12/2023 3:37 PM EDT Raina Coppola RN No [facility] 11-12-2023 Do you have difficul ty dressing or bathing No 11/12/2023 3:37 PM ADIELT Raina Coppola RN No [facility] 11-12-2023 Because of a physica l, mental, or emotional condition, do you have difficulty doing errands alone such as visiting a physician's office or shopping No 11/12/2023 3:37 PM EDT Raina Coppola RN No [facility] Mental Status Date Assessment Result Facility 03-27-2025 Cognitive function Voice/Name [facility] Work Phone: 03-20-2025 Cognitive function Awake [facility] Work Phone: 01-11-2025 Cognitive function Voice/Name [facility] Work Phone: 12-12-2024 Because of a physica l, mental, or emotional condition, do you have serious difficulty concentrating, remembering, or making decisions No 12/12/2024 10:12 AM EDT Lizeth Jordan RN No [facility] 11-12-2023 Because of a physica l, mental, or emotional condition, do you have serious difficulty concentrating, remembering, or making decisions No 11/12/2023 3:37 PM EDT Raina Coppola RN No [facility] 12-30-2021 Cognitive function Voice/Name [facility] Work Phone: Clinical Notes 02-15-2021 to 03-29-2025 Note Date & Type Note Facility 03-29-2025 Progress note Note Date/Time March 29, 2025 4:05pm [facility] [address] [place] [id number] Progress Note - Wound Care 03/29/25 1237 MR#: [id number] Acct: [id number] Name: BERTA SANCHES Rep #:[id number] : [...] months ago during a prolonged hospitalization in [place]. Bilateral foot/heel and right kaur. She has been applying Neosporin without anysignificant improvement. She reports a history of vascular surgery in [place]. Had a stent placed to an abdominal [...] Method Room Air Charges/Coding Procedures Integumentary 111xxx-113xx: 81112 Etelvina subq tissue 20 sq cm/< Physical [...] Date Recorded By Document 03/08/25 09:53 KW [id number] 03/08/25 10:07 KW Document 03/15/25 11:36 ML [id number] 03/15/25 11:44 ML Document 03/29/25 11:05 [id number] 03/29/25 11:15 LINDSAY 03/08/25 03/15/25 03/29/25 09:53 11:36 11:05 WC - Today's Visit Information Type of service Follow-up Visit Follow-up Visit Follow-up Visit (Physician/GRAVEDIGGER (Physician/GRAVEDIGGER (Physician/GRAVEDIGGER ) ) ) Arrival Mode Ambulatory Ambulatory [...] Date Recorded By Document 03/08/25 09:53 KW [id number] 03/08/25 10:07 KW Document 03/15/25 11:36 ML [id number] 03/15/25 11:44 ML Document 03/29/25 11:15 [id number] 03/29/25 11:38 03/08/25 03/15/25 03/29/25 09:53 11:36 [...] Amt Small (1-33%) Large (67-100%) -Granulation Quality [place] -Slough/Fibrin Yes No -Necrosis Amt Small (1-33%) [...] Present (0 Small (1-33%) %) -Granulation Quality [place] -Slough/Fibrin Yes -Necrosis Amt None Present (0 [...] Recorded Date Recorded By Document 03/08/25 10:43 [id number] 03/08/25 10:54 GM Document 03/15/25 12:00 [id number] 03/15/25 12:09 GM Edit Result 03/15/25 12:00 GM (1) [id number] 03/21/25 12:09 GM Document 03/29/25 11:41 [id number] 03/29/25 11:46 JF (1) #2 RT HEEL [...] Date Recorded By Document 03/08/25 11:17 MT [id number] 03/08/25 11:20 MT Document 03/15/25 12:32 RB [id number] 03/15/25 12:34 RB Document 03/29/25 11:58 JF [id number] 03/29/25 12:01 03/08/25 03/15/25 03/29/25 11:17 12:32 [...] if needed. This note was generated with [employer] software. It may contain incorrectwords, spelling, and punctuation that were not noted in checking the note beforesigning. 03/29/25 8925 <Electronically signed by Ebony Cerrato MD> Cosigner Signature (if applicable): CC: ~ Signed [facility] Work Phone: 1(593) 333-219409-11-2025 Progress note Author Ebony Cerrato [facility] Note Date/Time March 15, 2025 4:29pm [facility] [address] [place] [address] Progress Note - Wound Care 03/15/25 1309 MR#: [id number] Acct: [id number] Name: BERTA SANCHES Rep #:[id number] : [...] months ago during a prolonged hospitalization in [place]. Bilateral foot/heel and right kaur. She has been applying Neosporin without anysignificant improvement. She reports a history of vascular surgery in [place]. Had a stent placed to an abdominal [...] Method Room Air Charges/Coding Procedures Integumentary 111xxx-113xx: 25501 Etelvina subq tissue 20 sq cm/< Physical [...] Date Recorded By Document 03/08/25 09:53 KW [id number] 03/08/25 10:07 KW Document 03/15/25 11:36 ML [id number] 03/15/25 11:44 ML 03/08/25 03/15/25 09:53 11:36 - Today's Visit Information Type of service Follow-up Visit Follow-up Visit (Physician/GRAVEDIGGER (Physician/GRAVEDIGGER ) ) Arrival Mode Ambulatory Ambulatory Transfer [...] Date Recorded By Document 03/08/25 09:53 KW [id number] 03/08/25 10:07 KW Document 03/15/25 11:36 ML [id number] 03/15/25 11:44 ML 03/08/25 03/15/25 09:53 11:36 [...] (67-100%) None Present (0 %) -Granulation Quality [place] -Necrosis Amt None Present (0 %) -Texture [...] Recorded Date Recorded By Document 03/08/25 10:43 [id number] 03/08/25 10:54 Document 03/15/25 12:00 [id number] 03/15/25 12:09 03/08/25 03/15/25 10:43 12:00 Wound [...] Date Recorded By Document 03/08/25 11:17 MT [id number] 03/08/25 11:20 MT Document 03/15/25 12:32 RB [id number] 03/15/25 12:34 RB 03/08/25 03/15/25 11:17 12:32 [...] if needed. This note was generated with [employer] software. It may contain incorrectwords, spelling, and punctuation that were not noted in checking the note beforesigning. 03/15/25 [id number] <Electronically signed by Ebony Cerrato MD> Cosigner Signature (if applicable): CC: ~ Signed [facility] Work Phone: 1(418) 838-868709-04-2025 Progress note Author Ebony Cerrato [facility] Note Date/Time March 08, 2025 12:44pm [facility] [address] [place] [address] Progress Note - Wound Care 03/08/25 1234 MR#: [id number] Acct: [id number] Name: BERTA SANCHES Rep #:[id number] : [...] months ago during a prolonged hospitalization in [place]. Bilateral foot/heel and right kaur. She has been applying Neosporin without anysignificant improvement. She reports a history of vascular surgery in [place]. Had a stent placed to an abdominal [...] Method Room Air Charges/Coding Procedures Integumentary 111xxx-113xx: 45073 Etelvina subq tissue 20 sq cm/< Physical [...] Recorded Date Recorded By Document 03/08/25 09:53 [id number] 03/08/25 10:07 03/08/25 09:53 - Today's Visit Information Type of service Follow-up Visit (Physician/GRAVEDIGGER ) Arrival Mode Ambulatory Accompanied by Patient [...] Date Recorded By Document 03/08/25 09:53 MADYSON [id number] 03/08/25 10:07 KW 03/08/25 09:53 Wound Center [...] Attached -Granulation Amt Large (67-100%) -Granulation Quality [place] -Texture (Violet-wound Skin Appearance) Assessed,Callus -Moisture (Violet-wound [...] Recorded Date Recorded By Document 03/08/25 10:43 [id number] 03/08/25 10:54 GM 03/08/25 10:43 Wound Center [...] Recorded Date Recorded By Document 03/08/25 11:17 OK [id number] 03/08/25 11:20 OK 03/08/25 11:17 Wound Care Center Nurse 3 [...] Cosigner Signature (if applicable): CC: ~ Signed [facility] Work Phone: 1(859) 510-617808-28-2025 History and physical note Author Ebony Cerrato [facility] Note Date/Time March 01, 2025 9: 58pm [facility] [facility] [address] [place] [address] H&P Exam - Wound Care 03/01/25 1249 MR#: [id number] Acct: [id number] Name: BERTA SANCHES Rep #:[id number] : 1945 79 From: Ebony collins MD PCP: Dr. Vincent Flores MD Status:REG R CR Location: ADDENDUM by Dr. Ebony Cerrato MD on 03/01/25 at 2158 Visit Charges Office Visits / Consults: 86750 OV L3 Est 20min Procedures Integumentary 111xxx-113xx: 37278 Etelvina subq tissue 20 sq cm/< 03/01/258<Electronically [...] months ago during a prolonged hospitalization in [place]. Bilateral foot/heel and right kaur. She has been applying Neosporin without anysignificant improvement. She reports a history of vascular surgery in [place]. 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 No significant tobacco use, smoked for about 6 months quit over 50 years ago. She reports a history of borderline diabetes. Currently not on medication. Appetite is fair, concern for recent significant weight loss.. Otherwise, she states that she feels well. 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 Electrical Engineering Manager to contact place of zoroastrian No - Nurse 1 - General Ulcer Measurement Start: 03/01/25 09:07 Freq: Status: Active Protocol: Activity Type Activity Date Activity User E-sign Co-sign Detail Recorded Client Recorded Date Recorded By Document 03/01/25 09:12 KW [id number] 03/01/25 09:35 KW 03/01/25 09:12 Wound Center Nurse 1 #3 LT HEEL -Current Size (cm) - Length 0.1 -Current Size (cm) - Width 0.4 -Current Size (cm) - Depth 0.1 -Total Square Cm 0.04 -Date of Last Picture (Recall this 03/01/25 field) -Exudate Amt Small -Exudate Type Serosanguineous -Wound Margin Thickened -Granulation Amt Small (1-33%) -Granulation Quality [place] -Necrosis Amt Large (67-100%) -Necrotic Tissue Type [...] Thickened -Granulation Amt Small (1-33%) -Granulation Quality [place] -Necrosis Amt Large (67-100%) -Necrotic Tissue Type [...] Attached -Granulation Amt Large (67-100%) -Granulation Quality [place],Red -Texture (Violet-wound Skin Appearance) Assessed -Moisture (Violet-wound [...] Recorded Date Recorded By Document 03/01/25 09:52 [id number] 03/01/25 10:09 03/01/25 09:52 Wound Center Nurse [...] Recorded Date Recorded By Document 03/01/25 10:32 OK [id number] 03/01/25 10:36 OK 03/01/25 10:32 Wound Care Center Nurse 3 [...] if needed. This note was generated with [employer] dictation software. It may contain incorrectwords, spelling, and punctuation that were not noted in checking the note beforesigning. 03/01/252156 <Electronically signed by Ebony Cerrato MD> Cosigner Signature (if applicable): CC: ~ Signed [facility] Work Phone: 1(802) 541-917308-15-2025 Radiology Diagnostic study note [facility] Imaging Services [address] [place], [place] [address] Chest PA and Lateral MR#: [id number] Acct: [id number] Name: BERTA SANCHES Rep #: [id number] : 1945 F 79 From: Tevin Chaves MD PCP: Dr. Vincent Flores MD Status: REG E R Study:Chest PA and Lateral Date of Exam: 02/16/25 Exam# [id number] Ordering Dr: Glenna Pang MD PROCEDURE: CHEST [...] arteries suggestive of pulmonary hypertension. Reading Location: [facility]1 CC: Dr. Magdy Pang MD; Dr. Vincent Flores MD ~ Classroom Instructor: Signed [facility]08-07-2025 Procedure [facility] [address] [place], [place] [id number] Pacemaker Check Date of Service: 02/08/25 1425 MR#: [id number] Acct: [id number] Name: BERTA SANCHES Rep #: [id number] : 1945 From: Pau wilson Age/Sex: 79/F [place] [facility] [place]: Signed Billing Codes PM Device Codes: 94824 PM Dev Prog Eval, Dual Assessment and Plan Assessment and Plan (1) Presence of Watchman left atrial appendage closure device: Status: Acute (2) Pacemaker: Status: Acute Comment: 10/21/[address] MRI [employer] [id number] pulse generator programmed as AAIR (3) Cardiac arrhythmia: Status: Acute Qualifiers: Arrhythmia type: unspecified cardiac arrhythmia Qualified Code(s): I49.9 - Cardiac arrhythmia, unspecified 02/08/25 1426 > Date _ Pau Mccormack Signature: Date (if applicable) CC: ~ [facility]2025 Evaluation note* Diagnosis Onset Date [...] (paroxysmal atrial fibrillation) chronic May 10 11:22am [employer] Work Phone: 1(466) 515-830707-28-2025 Telephone encounter Note* Telephone Encounter - Irma Hwang RN - 01/29/2025 5:17 PM EDT Pharmacy electronically requests the following refill(s) Requested Prescriptions Pending Prescriptions Disp Refills simvastatin (ZOCOR) 40 mg tablet [Pharmacy Med Name: SIMVASTATIN 20 MG TAB[*]] 90 tablet 3 Sig: Take 1 tablet by mouth daily at bedtime. Irma Hwang RN [facility]07-28-2025 Miscellaneous Notes* Telephone Encounter - Irma Hwang RN - 01/29/2025 5:17 PM EDT Pharmacy electronically requests the following refill(s) Requested Prescriptions Pending Prescriptions Disp Refills simvastatin (ZOCOR) 40 mg tablet [Pharmacy Med Name: SIMVASTATIN 20 MG TAB[*]] 90 tablet 3 Sig: Take 1 tablet by mouth daily at bedtime. Irma Hwang RN documented [facility] Discharge summary [facility] Medical Records Department [address] [place] [address] Instructions for Home/Discharge Instructions 01/11/25 1226 MR#: [id number] Acct: [id number] Name: BERTA SANCHES Rep #:[id number] : [...] Hernandez MD [Non-Staff] - Deysi Collazo NP, FOUNDRY WORKER-C [Primary Care Provider] - Disposition Disposition (needs filled in before D/C Order can be placed): Home, Self Care 01/11/25 1230Dianne Stovall DO CC: FOUNDRY WORKER-C Deysi Collazo; Dr. Jeremy Mcgarry MD; Dr. Radha Heller MD ~ Signed [facility]07-10-2025 [facility] Progress note Author Dianne [facility] Note Date/Time January 10, 2025 6:26p [facility] Medical Records Department [address] [place] [address] Progress Note - Hospitalist 01/10/25 1823 MR#: [id number] Acct: [id number] Name: BERTA SANCHES SCOTTIE Rep #:[id number] : 1945 79 From: Dianne Stovall DO PCP: JARROD Cantu Status:ADM I N Location: [place] [address] Reason for Visit Reason for Visit: Diagnoses [...] team: 35-minute Charges/Coding Visit Charges Inpatient E&M: 03723 Subs Hosp L2 NIHSS NIHSS Nursing Documentation NIHSS Nursing Documentation: NIHSS: Ischemic Stroke/TIA Start: 01/08/25 00:49 Freq: [id number] Status: Complete Protocol: Activity Type Activity Date Activity User E-sign Co-sign Detail Recorded Client Recorded Date Recorded By Document 01/08/25 03:22 [id number] 01/08/25 03:24 01/08/25 03:22 NIH Stroke Scale [...] and with change in RN caregiver. Freq: T2MVZBB Protocol: Activity Type Activity Date Activity User E-sign Co-sign Detail Recorded Client Recorded Date Recorded By Document 01/08/25 12:00 [id number] 01/08/25 12:10 01/08/25 12:00 NIH Stroke Scale [...] Cosigner Signature (if applicable): CC: ~ Signed [facility] Work Phone: 1(148) 214-362607-09-2025 Progress note [facility] Medical Records Department [address] [place] [address] Progress Note - Hospitalist 01/10/25 1823 MR#: [id number] Acct: [id number] Name: BERTA SANCHES SCOTTIE Rep #:[id number] : 1945 79 From: Dianne Stovall DO PCP: JARROD Cantu Status:ADM I N Location: [place] [address] Reason for Visit Reason for Visit: Diagnoses [...] team: 35-minute Charges/Coding Visit Charges Inpatient E&M: 81226 Subs Hosp L2 NIHSS NIHSS Nursing Documentation NIHSS Nursing Documentation: NIHSS: Ischemic Stroke/TIA Start: 01/08/25 00:49 Freq: [id number] Status: Complete Protocol: Activity Type Activity Date Activity User E-sign Co-sign Detail Recorded Client Recorded Date Recorded By Document 01/08/25 03:22 [id number] 01/08/25 03:24 01/08/25 03:22 NIH Stroke Scale [...] and with change in RN caregiver. Freq: H8ZDHAQ Protocol: Activity Type Activity Date Activity User E-sign Co-sign Detail Recorded Client Recorded Date Recorded By Document 01/08/25 12:00 [id number] 01/08/25 12:10 01/08/25 12:00 NIH Stroke Scale [...] Cosigner Signature (if applicable): CC: ~ Signed [facility]07-09-2025 Progress note Author Jeremy Mcgarry [facility] Note Date/Time January 10, 2025 11:52 am [facility] Medical [facility] Department [address] [place] [address] Progress Note - Nephrology 01/10/25 1150 MR#: [id number] Acct: [id number] Name: BERTA SANCHES SCOTTIE Rep #:[id number] : 1945 79 From: Jeremy ferris MD PCP: JARROD Cantu Status:ADM I N Location: [place] [address] Subjective Subjective No new complaints today Objective [...] disease, stage 3b: PLAN: Reviewed records from [facility] where her primary care physician is, from care everywhere from [facility] During her hospitalization in October,[facility] where she was admitted in [...] had SMA thrombosis/stenosis, 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 She also has left-sided renal [...] Cosigner Signature (if applicable): CC: ~ Signed [facility] Work Phone: 1(272) 192-679007-09-2025 Progress note [facility] Medical Records Department [address] [place] [address] Progress Note - Nephrology 01/10/25 1150 MR#: [id number] Acct: [id number] Name: BERTA SANCHES Rep #:[id number] : 1945 79 From: Jeremy ferris MD PCP: JARROD Cantu Status:ADM I N Location: [place] [address] Subjective Subjective No new complaints today Objective [...] disease, stage 3b: PLAN: Reviewed records from [facility] where her primary care physician is, from care everywhere from [facility] During her hospitalization in October,[facility] where she was admitted [facility]. 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 She also has left-sided renal [...] Cosigner Signature (if applicable): CC: ~ Signed [facility]07-08-2025 Progress note Author Dianne Stovall [facility] Note Date/Time January 09, 2025 2:38p m [facility] Medical Records Department [address] [place] [address] Progress Note - Hospitalist 01/08/25 1849 MR#: [id number] Acct: [id number] Name: BERTA SANCHES Rep #:[id number] : 1945 79 From: Dianne Stovall DO PCP: Deysi Collazo FOUNDRY WORKER-Ivett Status:ADM I N Location: [place] [address] Reason for Visit Reason for Visit: Diagnoses [...] for this. Patient was also hospitalized recently [facility] for congestive heart failure. Patient told me she wanted to change institution director, I made her an appointment to follow-up [...] % (Auto) 47.3, Lymph % (Auto) 33.8, Greenlee % (Auto) 15.5 H, Eos % (Auto) [...] to call report. 11:17 p.m. Reading Location: [facility] Head/Neck CTA 01/07/25 23:08 IMPRESSION: BILATERAL CALCIFIC PLAQUE, PRIMARILY AT THE BIFURCATION BILATERALLY LESS THAN 50% STENOSIS. OCCASIONALLY OTHER PLAQUES ARE SEEN BUT NON FLOW LIMITING. NO LARGE VESSEL OCCLUSION. Requested contact with the referring physician at 11:55 p.m. verbal report to charge nurse Melida at 12:05 a.m. Reading Location: [facility] Carotid Duplex 01/08/25 05:04 Interpretation Summary [...] NIHSS: Ischemic Stroke/TIA Start: 01/08/25 00:49 Freq: N2DATDM Status: Complete Protocol: Activity Type Activity Date Activity User E-sign Co-sign Detail Recorded Client Recorded Date Recorded By Document 01/08/25 03:22 [id number] 01/08/25 03:24 07/07/25 03:22 NIH Stroke Scale [...] and with change in RN caregiver. Freq: M9QPWCL Protocol: Activity Type Activity Date Activity User E-sign Co-sign Detail Recorded Client Recorded Date Recorded By Document 01/08/25 12:00 [id number] 01/08/25 12:10 01/08/25 12:00 NIH Stroke Scale [...] team: 35 minutes Visit Charges Inpatient E&M: 29527 Subs Hosp L2 01/09/25 1438<Electronically signed by Dianne Stovall DO> Cosigner Signature (if applicable): cc: ~* Signed [facility] Work Phone: 1(979) 763-919607-08-2025 Progress note Author Dianne Stovall [facility] Note Date/Time January 09, 2025 2:37p [facility] Medical Records Department [address] [place] [address] Progress Note - Hospitalist 01/09/25 1434 MR#: [id number] Acct: [id number] Name: BERTA SANCHES Rep #:[id number] : 1945 79 From: Dianne Stovall DO PCP: JARROD Cantu Status:ADM I N Location: [place] [address] Reason for Visit Reason for Visit: Diagnoses [...] 35 minutes Charges/Coding Visit Charges Inpatient E&M: 69682 Subs Hosp L2 NIHSS NIHSS Nursing Documentation NIHSS Nursing Documentation: NIHSS: Ischemic Stroke/TIA Start: 01/08/25 00:49 Freq: V5VVVKQ Status: Complete Protocol: Activity Type Activity Date Activity User E-sign Co-sign Detail Recorded Client Recorded Date Recorded By Document 01/08/25 03:22 [id number] 01/08/25 03:24 01/08/25 03:22 NIH Stroke Scale [...] and with change in RN caregiver. Freq: Q5FVGVQ Protocol: Activity Type Activity Date Activity User E-sign Co-sign Detail Recorded Client Recorded Date Recorded By Document 01/08/25 12:00 [id number] 01/08/25 12:10 01/08/25 12:00 NIH Stroke Scale [...] Cosigner Signature (if applicable): CC: ~ Signed [facility] Work Phone: 1([phone]) 233-797307-08-2025 Progress note [facility] Medical Records Department [address] [place] [address] Progress Note - Hospitalist 01/08/25 7431 MR#: [id number] Acct: [id number] Name: BERTA SANCHES Rep #:[id number] : 1945 79 From: Dianne Stovall DO PCP: JARROD Cantu Status:ADM I N Location: [place] [address] Reason for Visit Reason for Visit: Diagnoses [...] intervention for this. Patient was also hospitalized [facility] for congestive heart failure. Patient told me she wanted to change institution director, I made her an appointment to follow-up [...] % (Auto) 47.3, Lymph % (Auto) 33.8, Greenlee % (Auto) 15.5 H, Eos % (Auto) [...] to call report. 11:17 p.m. Reading Location: [facility] Head/Neck CTA 01/07/25 23:08 IMPRESSION: BILATERAL CALCIFIC PLAQUE, PRIMARILY AT THE BIFURCATION BILATERALLY LESS THAN 50% STENOSIS. OCCASIONALLY OTHER PLAQUES ARE SEEN BUT NON FLOW LIMITING. NO LARGE VESSEL OCCLUSION. Requested contact with the referring physician at 11:55 p.m. verbal report to charge nurse Melida at12:05 a.m. Reading Location: [facility] Carotid Duplex 01/08/25 05:04 Interpretation Summary [...] NIHSS: Ischemic Stroke/TIA Start: 01/08/25 00:49 Freq: F1CLQCC Status: Complete Protocol: Activity Type Activity Date Activity User E-sign Co-sign Detail Recorded Client Recorded Date Recorded By Document 01/08/25 03:22 [id number] 01/08/25 03:24 01/08/25 03:22 NIH Stroke Scale [...] and with change in RN caregiver. Freq: L4WYBBP Protocol: Activity Type Activity Date Activity User E-sign Co-sign Detail Recorded Client Recorded Date Recorded By Document 01/08/25 12:00 [id number] 01/08/25 12:10 01/08/25 12:00 NIH Stroke Scale [...] team: 35 minutes Visit Charges Inpatient E&M: 59247 Subs Hosp L2 01/09/25 1438 Cosigner Signature (if applicable): cc: ~* Signed [facility]07-08-2025 Progress note [facility] Medical Records Department [address] [place] [address] Progress Note - Hospitalist 01/09/25 1434 MR#: [id number] Acct: [id number] Name: BERTA SANCHES SCOTTIE Rep #:[id number] : 1945 79 From: Dianne Stovall DO PCP: Deysi Collazo, TALI-C Status:ADM I N Location: [place] [address] Reason for Visit Reason for Visit: Diagnoses [...] 35 minutes Charges/Coding Visit Charges Inpatient E&M: 93365 Subs Hosp L2 NIHSS NIHSS Nursing Documentation NIHSS Nursing Documentation: NIHSS: Ischemic Stroke/TIA Start: 01/08/25 00:49 Freq: K2QYZYD Status: Complete Protocol: Activity Type Activity Date Activity User E-sign Co-sign Detail Recorded Client Recorded Date Recorded By Document 01/08/25 03:22 [id number] 01/08/25 03:24 01/08/25 03:22 NIH Stroke Scale [...] and with change in RN caregiver. Freq: B8WAJFU Protocol: Activity Type Activity Date Activity User E-sign Co-sign Detail Recorded Client Recorded Date Recorded By Document 01/08/25 12:00 [id number] 01/08/25 12:10 01/08/25 12:00 NIH Stroke Scale [...] Cosigner Signature (if applicable): CC: ~ Signed [facility]07-08-2025 Progress note Author Jeremy Mcgarry [facility] Note Date/Time January 09, 2025 12:22 pm [facility] Medical Records Department [address] [place] [address] Progress Note 01/09/25 1221 MR#: [id number] Acct: [id number] Name: BERTA SANCHES Rep #:[id number] : 1945 79 From: Jeremy ferris MD PCP: JARROD Cantu Status:ADM I N Location: [place] [address] Progress Note patient was in bathroom today [...] Cosigner Signature (if applicable): CC: ~ Signed [facility] Work Phone: 1(519) 277-758707-08-2025 Progress note [facility] Medical Records Department [address] [place] [address] Progress Note 01/09/25 1221 MR#: [id number] Acct: [id number] Name: BERTA SANCHES Rep #:[id number] : 1945 79 From: Jeremy ferris MD PCP: JARROD Cantu Status:ADM I N Location: [place] [address] Progress Note patient was in bathroom today could not examine labs reviewed cr stable plan continue lasix drip till closer to dry weight at dc add bumex 2 mg BID/lasix 80 mg BID continue aldactone metolazone 5 mg as needed KCL 20 meq daily will arrange follow up after dc 01/09/25 1222 Jeremy Mcgarry MD Cosigner Signature (if applicable): CC: ~ Signed [facility]07-08-2025 Discharge summary Author Dianne Stovall [facility] Note Date/Time January 09, 2025 9:02a m [facility] Medical Records Department [address] [place] [address] Instructions for Home/Discharge Instructions 01/08/25 1536 MR#: [id number] Acct: [id number] Name: BERTA SANCHES Rep #:[id number] : [...] Consulting Providers: Teo Blue; Lindsey Francisco; Yamileth Hsasan; Josefina Arrieta; Charley Berger; Tacos Edouard; Sydney [...] Hernandez MD [Non-Staff] - Deysi Collazo NP, FOUNDRY WORKER-C [Primary Care Provider] - Disposition Disposition (needs filled in before D/C Order can be placed): Home, Self Care 01/09/25901<Electronically signed by Dianne Stovall DO>Dianne Stovall DO CC: Josefina Arrieta; Chelsi Pulido; FOUNDRY WORKER-C Deysi Collazo; Jonathan Funez; Charley Berger MD; [...] Gates DO; Jessa Lee MD ~ Signed [facility] Work Phone: 1(531) 801-401907-08-2025 Discharge summary [facility] Medical Records Department [facility] [place] [address] Instructions for Home/Discharge Instructions 01/08/25 1536 MR#: [id number] Acct: [id number] Name: BERTA SANCHES Rep #:[id number] : [...] Hernandez MD [Non-Staff] - Deysi Collazo NP, FOUNDRY WORKER-C [Primary Care Provider] - Disposition Disposition (needs filled in before D/C Order can be placed): Home, Self Care 01/09/25 0902Dianne Stovall DO CC: Josefina Arrieta; Chelsi Pulido; FOUNDRY WORKER-C Deysi Collazo; Jonathan Funez; Charley Berger MD; [...] Gates DO; Jessa Lee MD ~ Signed [facility]07-07-2025 Consult note Author Jeremy Mcgarry [facility] Note Date/Time January 08, 2025 5:03p [facility] Medical Records Department [address] [place] [address] Consultation - Nephrology 01/08/25 1655 MR#: [id number] Acct: [id number] Name: BERTA SANCHES SCOTTIE Rep #:[id number] : 1945 79 From: Jeremy ferris MD PCP: Deysi Haagen, FOUNDRY WORKER-C Status:ADM I N Location: [place] [id number]- 1 Assessment & Plan Assessment/Plan (1) Chronic kidney disease, stage 3b: PLAN: Reviewed records from [facility] where her primary care physician is, from care everywhere from [facility] During her hospitalization in October,[facility] where she was admitted in [...] had SMA thrombosis/stenosis, 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 She also has left-sided renal [...] complicated course recently. She is originally from [place], was in [place] for the winter, had a long hospitalization in [facility]. History of congestive heart failure with diastolic dysfunction, BNP has been consistently high. Was seeing cardiology at [facility]. Has been on diuretic, despite that worsening heart failure. Apparently gained more than 10 pounds. Baseline weight is around 140 pounds, went up to 154 pounds. Being started on Lasix drip. [facility] Medical History (Updated 01/08/25 @ 16:58 by [...] % (Auto) 47.3, Lymph % (Auto) 33.8, Greenlee % (Auto) 15.5 H, Eos % (Auto) [...] to call report. 11:17 p.m. Reading Location: [facility] Head/Neck CTA 01/07/25 23:08 IMPRESSION: BILATERAL CALCIFIC PLAQUE, PRIMARILY AT THE BIFURCATION BILATERALLY LESS THAN 50% STENOSIS. OCCASIONALLY OTHER PLAQUES ARE SEEN BUT NON FLOW LIMITING. NO LARGE VESSEL OCCLUSION. Requested contact with the referring physician at 11:55 p.m. verbal report to charge nurse Melida at 12:05 a.m. Reading Location: [facility] Carotid Duplex 01/08/25 05:04 Interpretation Summary Mild (<50%) stenosis right extracranial internal carotid. Mild (<50%) stenosis left extracranial internal carotid. Patent and antegrade vertebrals bilaterally. Ordering Physician: Carla Ha Referring Physician: Deysi Collazo Performed By: Sony Perez RVT 01/08/25 1703 <Electronically signed by Jeremy Mcgarry MD> Cosigner Signature (if applicable): CC: FOUNDRY WORKER-C Deysi Collazo~ Signed [facility] Work Phone: 1(398) 206-340307-07-2025 Progress note Author Noris Brock [facility] Note Date/Time January 08, 2025 3:23p m [facility] Medical Records Department [address] [place] [address] Progress Note - Neurology 01/08/25 1514 MR#: [id number] Acct: [id number] Name: BERTA SANCHES SCOTTIE Rep #:[id number] : 1945 79 From: Noris Brock MD PCP: JARROD Cantu Status:ADM I N Location: [place] [address] Objective Data Objective Data Vital Signs: Vital [...] % (Auto) 47.3, Lymph % (Auto) 33.8, Greenlee % (Auto) 15.5 H, Eos % (Auto) [...] to call report. 11:17 p.m. Reading Location: [facility] Head/Neck CTA 01/07/25 23:08 IMPRESSION: BILATERAL CALCIFIC PLAQUE, PRIMARILY AT THE BIFURCATION BILATERALLY LESS THAN 50% STENOSIS. OCCASIONALLY OTHER PLAQUES ARE SEEN BUT NON FLOW LIMITING. NO LARGE VESSEL OCCLUSION. Requested contact with the referring physician at 11:55 p.m. verbal report to charge nurse Melida at 12:05 a.m. Reading Location: [facility] Carotid Duplex 01/08/25 05:04 Interpretation Summary [...] NIHSS: Ischemic Stroke/TIA Start: 01/08/25 00:49 Freq: K2WJXIZ Status: Complete Protocol: Activity Type Activity Date Activity User E-sign Co-sign Detail Recorded Client Recorded Date Recorded By Document 01/08/25 03:22 [id number] 01/08/25 03:24 RM 01/08/25 03:22 NIH Stroke [...] and with change in RN caregiver. Freq: [id number] Protocol: Activity Type Activity Date Activity User E-sign Co-sign Detail Recorded Client Recorded Date Recorded By Document 01/08/25 12:00 [id number] 01/08/25 12:10 01/08/25 12:00 NIH Stroke Scale [...] Cosigner Signature (if applicable): CC: ~ Signed [facility] Work Phone: 1(177) 292-790407-07-2025 Consult note [facility] Medical Records Department [address] [place] [address] Consultation - Nephrology 01/08/25 1655 MR#: [id number] Acct: [id number] Name: BERTA SANCHES Rep #:[id number] : 1945 79 From: Jeremy ferris MD PCP: JARROD Cantu Status:ADM I N Location: [place] [address] Assessment & Plan Assessment/Plan (1) Chronic kidney disease, stage 3b: PLAN: Reviewed records from [facility] where her primary care physician is, from care everywhere from [facility] During her hospitalization in October,[facility] where she was admitted [facility]. 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 She also has left-sided renal [...] complicated course recently. She is originally from [place], was in [place] for the winter, had a long hospitalization in [facility]. History of congestive heart failure with diastolic dysfunction, BNP has been consistently high. Wasseeing cardiology at [facility]. Has been on diuretic, despite that worsening heart failure. Apparently gained more than 10 pounds. Baseline weight is around 140 pounds, went up to 154 pounds. Being started on Lasix drip. [facility] Medical History (Updated 01/08/25 @ 16:58 by [...] % (Auto) 47.3, Lymph % (Auto) 33.8, Greenlee % (Auto) 15.5 H, Eos % (Auto) [...] to call report. 11:17 p.m. Reading Location: [facility] Head/Neck CTA 01/07/25 23:08 IMPRESSION: BILATERAL CALCIFIC PLAQUE, PRIMARILY AT THE BIFURCATION BILATERALLY LESS THAN 50% STENOSIS. OCCASIONALLY OTHER PLAQUES ARE SEEN BUT NON FLOW LIMITING. NO LARGE VESSEL OCCLUSION. Requested contact with the referring physician at 11:55 p.m. verbal report to charge nurse Melida at12:05 a.m. Reading Location: [facility] Carotid Duplex 01/08/25 05:04 Interpretation Summary Mild (<50%) stenosis right extracranial internal carotid. Mild (<50%) stenosis left extracranial internal carotid. Patent and antegrade vertebrals bilaterally. Ordering Physician: Carla Ha Referring Physician: Deysi Collazo Performed By: Sony Perez RVT 01/08/25 1703 Cosigner Signature (if applicable): CC: FOUNDRY WORKER-C Deysi Collazo~ Signed [facility]07-07-2025 Progress note [facility] Medical Records Department [address] [place] [address] Progress Note - Neurology 01/08/25 1514 MR#: [id number] Acct: [id number] Name: TAMERA SANCHESRA RUBIN Rep #:[id number] : 1945 79 From: Noris Brock MD PCP: JARROD Cantu Status:ADM I N Location: [place] [address] Objective Data Objective Data Vital Signs: Vital [...] % (Auto) 47.3, Lymph % (Auto) 33.8, Greenlee % (Auto) 15.5 H, Eos % (Auto) [...] to call report. 11:17 p.m. Reading Location: [facility] Head/Neck CTA 01/07/25 23:08 IMPRESSION: BILATERAL CALCIFIC PLAQUE, PRIMARILY AT THE BIFURCATION BILATERALLY LESS THAN 50% STENOSIS. OCCASIONALLY OTHER PLAQUES ARE SEEN BUT NON FLOW LIMITING. NO LARGE VESSEL OCCLUSION. Requested contact with the referring physician at 11:55 p.m. verbal report to charge nurse Melida at12:05 a.m. Reading Location: [facility] Carotid Duplex 01/08/25 05:04 Interpretation Summary [...] NIHSS: Ischemic Stroke/TIA Start: 01/08/25 00:49 Freq: [id number] Status: Complete Protocol: Activity Type Activity Date Activity User E-sign Co-sign Detail Recorded Client Recorded Date Recorded By Document 01/08/25 03:22 [id number] 01/08/25 03:24 01/08/25 03:22 NIH Stroke Scale [...] and with change in RN caregiver. Freq: [id number] Protocol: Activity Type Activity Date Activity User E-sign Co-sign Detail Recorded Client Recorded Date Recorded By Document 01/08/25 12:00 [id number] 01/08/25 12:10 01/08/25 12:00 NIH Stroke Scale [...] Cosigner Signature (if applicable): CC: ~ Signed [facility]07-07-2025 Progress note Author Carla Barksdale [facility] Note Date/Time January 08, 2025 1:58a m [facility] Medical Records Department [address] [facility] [place] [address] Progress Note - Hospitalist 01/07/25 2335 MR#: [id number] Acct: [id number] Name: BERTA SANCHES SCOTTIE Rep #:[id number] : 1945 79 From: Carla Rashid DO PCP: JARROD Cantu Status:ADM I N Location: [place] [address] Hospitalist Note Stroke alert was called overhead [...] in 24 hours as per neurology recommendations. TANK CAR LOADER was updated with plan. [facility] Imaging Services [address] [place] [address] STROKE Brain/Head without Cont MR#: [id number] Acct: [id number] Name: BERAT SANCHES Rep #: [id number] : 1945 F 79 From: Jonathan Paul DO PCP: JARROD Cantu Status: ADM IN Study: STROKE Brain/Head without Cont Date of Exam: 01/07/25 Exam# [id number] Ordering Dr: Carla Ha DO PROCEDURE: STROKE [...] to call report. 11:17 p.m. Reading [facility] CC: JARROD Collazo; Dr. Carla Ha DO ~ Classroom Instructor: Signed ----- [facility] Imaging Services [address] [place] [address] STROKE CTA Head AND Neck W/Con MR#: [id number] Acct: [id number] Name: BERTA SANCHES Rep #: [id number] : 1945 F 79 From: Jonathan Paul DO PCP: JARROD Cantu Status: ADM IN Study: STROKE CTA Head AND Neck W/Con Date of Exam: 01/07/25 Exam# [id number] Ordering Dr: Carla Ha DO PROCEDURE: STROKE [...] nurse Melida at 12:05 a.m. Reading Location: [facility] CC: FOUNDRY WORKER-C Deysi Collazo; Dr. Carla Ha DO ~ Classroom Instructor: Signed 01/08/25 0158 <Electronically signed by Carla Ha DO> Cosigner Signature (if applicable): CC: ~ Signed [facility] Work Phone: 1(414) 669-750707-07-2025 Progress note [facility] Medical Records Department [address] [place] [address] Progress Note - Hospitalist 01/07/25 3015 MR#: [id number] Acct: [id number] Name: BERTA SANCHES Rep #:[id number] : 1945 79 From: Carla Rashid DO PCP: JARROD Cantu Status:ADM I N Location: [place] [id number] Hospitalist Note Stroke alert was called overhead [...] in 24 hours as per neurology recommendations. TANK CAR LOADER was updated with plan. [facility] Imaging Services [address] [place] [address] STROKE Brain/Head without Cont MR#: [id number] Acct: [id number] Name: BERTA SANCHES Rep #: [id number] : 1945 F 79 From: Jonathan Paul DO PCP: JARROD Canut Status: ADM IN Study: STROKE Brain/Head without Cont Date of Exam: 01/07/25 Exam# [id number] Ordering Dr: Carla Ha DO PROCEDURE: STROKE [...] to call report. 11:17 p.m. Reading Location: [facility] CC: HOWARDC Deysi Collazo; Dr. Carla Ha DO ~ Classroom Instructor: Signed [facility] Imaging Services [address] [address] STROKE CTA Head AND Neck W/Con MR#: [id number] Acct: [id number] Name: BERTA SANCHES SCOTTIE Rep #: [id number] : 1945 F 79 From: Jonathan Paul DO PCP: JARROD Cantu Status: ADM IN Study: STROKE CTA Head AND Neck W/Con Date of Exam: 01/07/25 Exam# [id number] Ordering Dr: Carla Ha DO PROCEDURE: STROKE [...] charge nurse Melida at12:05 a.m. Reading Location: [facility] CC: JARROD Collazo; Dr. Carla Ha DO ~ Classroom Instructor: Signed 01/08/25 0158 Cosigner Signature (if applicable): CC: ~ Signed [facility]07-07-2025 Radiology Diagnostic study note [facility] Imaging Services [address] [place] [id number] STROKE CTA Head AND Neck W/Con MR#: [id number] Acct: [id number] Name: BERTA SANCHES Rep #: [id number] : 1945 F 79 From: Pet er Humberto CURRY PCP: JARROD Cantu Status: ADM I N Study:STROKE CTA Head AND Neck W/Con Date of Exam: 01/07/25 Exam# [id number] Ordering Dr: Carla Rayo DO PROCEDURE: STROKE [...] charge nurse Melida at12:05 a.m. Reading Location[facility] CC: JARROD Collazo; DO Varsha Roldan Classroom Instructor: Signed [facility]07-06-2025 Radiology Diagnostic study note [facility] Imaging Services [address] [place], [place] [id number] STROKE Brain/Head without Cont MR#: [id number] Acct: [id number] Name: BERTA SANHCES Rep #: [id number] : 1945 F 79 From: Pet er Peer PCP: JARROD Cantu Status: ADM I N Study:STROKE Brain/Head without Cont Date of Exam: 01/07/25 Exam# [id number] Ordering Dr: Carla Rayo DO PROCEDURE: STROKE [...] to call report. 11:17 p.m. Reading Location: [facility] CC: FOUNDRY WORKER-Ivett Collazo; Dr. Carla Ha DO ~ Classroom Instructor: Signed [facility]07-06-2025 Discharge summary Author Sheree Simmons [facility] Note Date/Time January 07, 2025 5:04p m [facility] Medical Records Department [address] [place] [address] Emergency Department Summary 01/07/25 MR#: [id number] Acct: [id number] Name: TAMERA SANCHESRA RUBIN Rep #:[id number] : 1945 79 From: Sheree KING PCP: JARROD Cantu Status:ADM I N Location: [address] [facility] <FERNANDO Uriostegui - Last Filed: [...] in September 2023 she had surgery in [place] for some type of intra-abdominal artery blockage and was started on Plavix in addition to her baseline aspirin 81 mg. She states she was also having issues with her congestive heart failure. She came home at the end of October and has been taking her normal Lasix 40 mg twice daily and spironolactone 12.5 mg twice daily without improvement. She saw her [facility] clinic institution director Dr. Burdick on January 01. He changed [...] is from allergies but no significant cough. [facility] <FERNANDO Uriostegui - Last Filed: 01/07/25 16:48> [facility] Medical History (Updated 01/07/25 @ [...] Oxygen Delivery Method Room Air Room Air [facility] <FERNANDO Uriostegui - Last Filed: 01/07/25 16:48> [facility] Narrative Medical decision making narrative: History gathered [...] dose of Lasix as instructed by her institution director without improvement. She is awake alertno distress. [...] heart failure. 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 She was hospitalized for 23days. She is followed by institution director through the [facility]. She statesshe has difficulty contacting him and seeing him. She was offered option to follow-up with institution director in [place]. Patient denies fever, chills night sweats. Patient [...] % (Auto) 59.8 Lymph % (Auto) 24.2 Greenlee % (Auto) 12.9 H Eos % (Auto) [...] Hr 68 H* [place] [address] H Radiography Diagnostic Testing: Clinical Impression(s) from Imaging Studies Chest X-Ray 01/07/25 13:19 IMPRESSION: Findings consistent with mild congestive heart failure. Reading Location: [id number] ED attending interpretation of 2 view chest x-ray shows mild congestive heart failure. EKG Initial EKG: Attestation: I personally reviewed and interpreted this EKG as follows: Interpretation: No Acute Injury Pattern and Atrial Fibrillation Comments: Atrial fibrillation at 77 bpm, occasional ventricular paced complexes Left anterior fascicular block Nonspecific ST changes, no STEMI <Dr. Luis Armando Harry MD - Last Filed: 01/07/25 17:04> [facility] MDM Narrative Medical decision making narrative: History gathered from: Patient and spouse 79-year-old female presents with several weeks of dyspnea and bilateral lower extremity edema. She has had tight swelling from both thighs and down for several weeks. Over the last 5 days she has been taking an increased dose of Lasix as instructed by her institution director without improvement. She is awake alertno distress. [...] heart failure. 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 She was hospitalized for 23days. She is followed by institution director through the [facility]. She statesshe has difficulty contacting him and seeing him. She was offered option to follow-up with institution director in [place]. Patient denies fever, chills night sweats. Patient [...] % (Auto) 59.8 Lymph % (Auto) 24.2 Greenlee % (Auto) 12.9 H Eos % (Auto) [...] Hr 68 H* [place] [address] H Radiography Diagnostic Testing: Clinical Impression(s) from Imaging Studies Chest X-Ray 01/07/25 13:19 IMPRESSION: Findings consistent with mild congestive heart failure. Reading Location: [id number] Management Discussion w/another healthcare provider: Hospitalist (Documented [...] your Primary Care Provider. Call [facility] ([phone]) or report to the closest Emergency Room. Call 911 if necessary. 01/07/25 1648 <Electronically signed by Sheree KING> Cosigner Signature (if applicable): 01/07/25 1704 <Electronically signed by Romel UGARTE> CC: TALI-C Deysi Collazo ~ Signed [facility] Work Phone: 1(362) 344-221707-06-2025 History and physical note Author Radha Heller [facility] Note Date/Time January 07, 2025 4:35p m [facility] Medical Records Department [address] [place] [address] H&P Exam - Hospitalist 01/07/25 1629 MR#: [id number] Acct: [id number] Name: BERTA SANCHES Rep #:[id number] : [...] post Watchman device, congestive heart failure presented [facility] ED 01/07/2025 with several weeks of shortness of breath and bilateral lower extremity edema. Reportedly in September 2023 she had surgery in [place] for some kind of intra-abdominal artery blockageand was placed on Plavix and aspirin and was having difficulties with her heart failure at that time. She came home at the end of October and has been taking herLasix 40 twice daily and spironolactone 12.5 mg twice daily without improvement. She recently followed with her [facility] institution director with increase in her Lasix by mouth [...] bowel or bladder changes. ROS otherwise negative [facility] Medical History Anxiety Brain aneurysm Bronchospasm with [...] % (Auto) 59.8, Lymph % (Auto) 24.2, Greenlee % (Auto) 12.9 H, Eos % (Auto) [...] Sens 71 H*, [place] [address] H 01/07/25 14:54: Troponin T Hi Sens 2 Hr 68 H* Imaging Radiology Impression Chest X-Ray 01/07/25 13:19 IMPRESSION: Findings consistent with mild congestive heart failure. Reading Location: [facility] Assessment & Plan Assessment/Plan (1) CHF exacerbation: [...] Heller MD Charges/Coding Visit Charges Inpatient E&M: 18338 Init Hosp L2 01/07/25 1635 <Electronically signed by Radha Heller MD> Cosigner Signature (if applicable): CC: JARROD Collazo; Dr. Radha Heller MD~ Signed [facility] Work Phone: 1(608) 835-726407-06-2025 Evaluation note* Diagnosis Onset Date Resolution Status Admit Date MONIQUE (acute kidney injury) acute January 07, 2025 4:29pm CHF exacerbation acute January 4:29pm Chronic kidney disease, stage 3b acu te January 07, 2025 4:29pm [facility] Work Phone: 1([phone]) 261-353207-06-2025 Evaluation note* Diagnosis Onset Date Resolution Status Admit Date Chronic kidney disease, stage 3b acu te January 07, 2025 4:29pm MONIQUE (acute kidney injury) inactive January 07, 2025 4:29pm CHF exacerbation inactive January 4:29pm [facility] Work Phone: 1([phone]) 745-622507-06-2025 Evaluation note* Diagnosis Onset Date Resolution Status Admit Date Chronic kidney disease, stag e 3b acute January 07, 2025 4 :29pm MONIQUE (acute kidney injury) inactive January 07, 2025 4:29pm CHF exacerbation inactive January 4:29pm Chronic renal failure (CRF), stage 3b acute February 05, 2025 8:53am [facility] Work Phone: 1([phone]) 579-386107-06-2025 Evaluation note* Diagnosis Onset Date Resolution Status [...] atrial fibrillation) chronic February 05, 2025 8:53am [facility] Work Phone: [phone]) [phone] Evaluation note* Diagnosis Onset Date Resolution Status [...] closure device acute February 08, 2025 9:56am [employer] Work Phone: [phone]) [phone] Evaluation note* Diagnosis Onset Date Resolution Status [...] March 012024 8:49am PAD (peripheral artery disease) ham facer april March 01, 2025 8:49am PAF (paroxysmal atrial fibrillation) chronic March 01 8:49am [facility] Work Phone: 1([phone]) 286-339707-06-2025 Evaluation note* Diagnosis Onset Date Resolution Status [...] 8:57am Anemia noneactive March 13, 2025 1:46pm [facility] Work Phone: 1([phone]) [phone] Evaluation note* Diagnosis Onset Date Resolution Status [...] atrial fibrillation) chronic March 15, 2025 11:00am [facility] Work Phone: 1([phone]) 576-539607-06-2025 Evaluation note* Diagnosis Onset Date Resolution Status [...] atrial fibrillation) chronic March 29, 2025 11:00am [facility] Work Phone: [phone]) [phone] Evaluation note* Diagnosis Onset Date Resolution Status [...] (paroxysmal atrial fibrillation) chronic April 05 10:53am [facility] Work Phone: 1([phone]) [phone] Discharge summary [facility] Medical Records Department [address] [place] [address] Emergency Department Summary 01/07/25 MR#: [id number] Acct: [id number] Name: BERTA SANCHES SCOTTIE Rep #:[id number] : 1945 79 From: Sheree KING PCP: JARROD Cantu Status:ADM I N Location: [address] History of Present Illness Chief Complaint: [...] in September 2023 she had surgery in [place] for some type of intra-abdominal artery blockage and was started on Plavix in addition to her baseline aspirin 81 mg. She states she was also having issues with her congestive heart failure. She came home atthe end of October and has been taking her normal Lasix 40 mg twice daily and spironolactone 12.5 mg t wice daily without improvement. She saw her [facility] clinic institution director Dr. Burdick on January 01. He changed [...] is from allergies but no significant cough. [facility] Medical History (Updated 01/07/25 @ [...] dose of Lasix as instructed by her institution director without improvement. She is awake alertno distress. [...] heart failure. 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 She was hospitalized for 23days. She is followed by institution director through the [facility]. She statesshe has difficulty contacting him and seeing him. She was offered option to follow-up with institution director in [place]. Patient denies fever, chills night sweats. Patient [...] % (Auto) 59.8 Lymph % (Auto) 24.2 Greenlee % (Auto) 12.9 H Eos % (Auto) [...] Hr 68 H* [place] [address] H Radiography Diagnostic Testing: Clinical Impression(s) from Imaging Studies Chest X-Ray 01/07/25 13:19 IMPRESSION: Findings consistent with mild congestive heart failure. Reading Location: [id number] ED attending interpretation of 2 view chest [...] dose of Lasix as instructed by her institution director without improvement. She is awake alertno distress. [...] heart failure. 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 She was hospitalized for 23days. She is followed by institution director through the [facility]. She statesshe has difficulty contacting him and seeing him. She was offered option to follow-up with institution director in [place]. Patient denies fever, chills night sweats. Patient [...] % (Auto) 59.8 Lymph % (Auto) 24.2 Greenlee % (Auto) 12.9 H Eos % (Auto) [...] Hr 68 H* [place] [address] H Radiography Diagnostic Testing: Clinical Impression(s) from Imaging Studies Chest X-Ray 01/07/25 13:19 IMPRESSION: Findings consistent with mild congestive heart failure. Reading Location: [facility] Management Discussion w/another healthcare provider: Hospitalist (Documented [...] your Primary Care Provider. Call [facility] ([phone]) or report tothe closest Emergency Room. Call 911 if necessary. 01/07/25 1648 Cosigner Signature (if applicable): 01/07/25 1704 CC: FOUNDRY WORKER-C Deysi Collazo ~ Signed [facility]07-06-2025 History and physical note [facility] Medical Records Department [address] [place] [address] H&P Exam - Hospitalist 01/07/25 1629 MR#: [id number] Acct: [id number] Name: BERTA SANCHES Rep #:[id number] : [...] post Watchman device, congestive heart failure [facility] with several weeks of shortness of breath and bilateral lower extremity edema. Reportedly in September 2023 she had surgery in [place] for some kind of intra-abdominal artery blockageand was placed on Plavix and aspirin and was having difficulties with her heart failure at that time. She came home at the end of October and has been taking herLasix 40 twice daily and spironolactone 12.5 mg twice daily without improvement. She recently followed with her [facility] institution director with increase in her Lasix by mouth [...] bowel or bladder changes. ROS otherwise negative [facility] Medical History Anxiety Brain aneurysm Bronchospasm with [...] % (Auto) 59.8, Lymph % (Auto) 24.2, Greenlee % (Auto) 12.9 H, Eos % (Auto) [...] Sens 71 H*, [place] [address] H 01/07/25 14:54: Troponin T Hi Sens 2 Hr 68 H* Imaging Radiology Impression Chest X-Ray 01/07/25 13:19 IMPRESSION: Findings consistent with mild congestive heart failure. Reading Location: [id number] Assessment & Plan Assessment/Plan (1) CHF exacerbation: [...] Heller MD Charges/Coding Visit Charges Inpatient E&M: 96406 Init Hosp L2 01/07/25 1635 Cosigner Signature (if applicable): CC: JARROD Collazo; Dr. Radha Heller MD~ Signed [facility]07-06-2025 Radiology Diagnostic study note [facility] Imaging Services [address] [place], [place] [id number] Chest PA and Lateral MR#: [id number] Acct: [id number] Name: BERTA SANCHES Rep #: [id number] : 1945 F 79 From: Nahum Trinidad MD PCP: JARROD Cantu Status: REG E R Study:Chest PA and Lateral Date of Exam: 01/07/25 Exam# [id number] Ordering Dr: Sheree Haynes PROCEDURE: CHEST PA [...] with mild congestive heart failure. Reading Location: [id number] CC: JARROD Collazo; FERNANDO Uriostegui ~ Classroom Instructor: Signed [facility] Work Phone: 1([phone]) 516-119707-06-2025 Discharge summary Author Sheree Simmons [facility] Note Date/Time January 07, 2025 5:04p m [facility] Medical Records Department [address] [place] [address] Emergency Department Summary 01/07/25 MR#: [id number] Acct: [id number] Name: BERTA SANCHES Rep #:[id number] : 1945 79 From: Sheree KING PCP: JARROD Cantu Status:ADM I N Location: [address] <FERNANDO Uriostegui - Last Filed: 01/07/25 [...] in September 2023 she had surgery in [place] for some type of intra-abdominal artery blockage and was started on Plavix in addition to her baseline aspirin 81 mg. She states she was also having issues with her congestive heart failure. She came home at the end of October and has been taking her normal Lasix 40 mg twice daily and spironolactone 12.5 mg twice daily without improvement. She saw her [facility] clinic institution director Dr. Burdick on January 01. He changed [...] <FERNANDO Uriostegui - Last Filed: 01/07/25 16:48> [facility] Medical History (Updated 01/07/25 @ [...] Oxygen Delivery Method Room Air Room Air [facility] <FERNANDO Uriostegui - Last Filed: 01/07/25 16:48> [facility] Narrative Medical decision making narrative: History gathered [...] dose of Lasix as instructed by her institution director without improvement. She is awake alertno distress. [...] heart failure. 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 She was hospitalized for 23days. She is followed by institution director through the [facility]. She statesshe has difficulty contacting him and seeing him. She was offered option to follow-up with institution director in [place]. Patient denies fever, chills night sweats. Patient [...] % (Auto) 59.8 Lymph % (Auto) 24.2 [place] % (Auto) 12.9 H Eos % (Auto) [...] Hr 68 H* [place] [address] H Radiography Diagnostic Testing: Clinical Impression(s) from Imaging Studies Chest X-Ray 01/07/25 13:19 IMPRESSION: Findings consistent with mild congestive heart failure. Reading Location: [facility] ED attending interpretation of 2 view chest [...] dose of Lasix as instructed by her institution director without improvement. She is awake alertno distress. [...] heart failure. 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 She was hospitalized for 23days. She is followed by institution director through the [facility]. She statesshe has difficulty contacting him and seeing him. She was offered option to follow-up with institution director in [place]. Patient denies fever, chills night sweats. Patient [...] % (Auto) 59.8 Lymph % (Auto) 24.2 Greenlee % (Auto) 12.9 H Eos % (Auto) [...] Hr 68 H* [place] [address] H Radiography Diagnostic Testing: Clinical Impression(s) from Imaging Studies Chest X-Ray 01/07/25 13:19 IMPRESSION: Findings consistent with mild congestive heart failure. Reading Location: [id number] Management Discussion w/another healthcare provider: Hospitalist (Documented [...] your Primary Care Provider. Call [facility] ([phone]) or report to the closest Emergency Room. Call 911 if necessary. 01/07/25 1648 <Electronically signed by Sheree KING> Cosigner Signature (if applicable): 01/07/25 1704 <Electronically signed by Romel UGARTE> CC: FOUNDRY WORKER-C Deysi Collazo ~ Signed [facility] Work Phone: 1(127) 995-267606-30-2025 Instructions* Patient Instructions* Carla Burdick MD - 01/01/2025 11:12 AM EDT I have written you for lasix 40 mg pills Take two in the morning (80 mg) and one (40 mg) in the afternoon for this week Wed-Wednesday Repeat blood work next wednesday documented in this encounter[facility] History of Present illness Narrative* Carla Burdick MD - 01/01/2025 11:00 AM EDT Images from the original note were not included. [facility]ASC[facility]STITUTE SECTION OF REGIONAL CARDIOLOGY Cardiology ([facility]) [address] [facility] [address] OUTPATIENT VISIT DATE 01/01/2025 PRIMARY CARE PHYSICIAN: Doreen Le [address] [place] [address] HISTORY OF PRESENT ILLNESS: Ms. 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 Lua PACEMAKER 10/2019 PART. HYSTERECTOMY W/WO RMVL OVARIES/TUBES 1974 h/o cervical cancer ovaries remain PAST SURGICAL HISTORY OF 1996 Aortic valve repair, Dr. Apodaca PAST SURGICAL HISTORY OF 2001 [address] Beltrán, [facility] PAST SURGICAL HISTORY OF 2015 [...] !SVR !1650dyn-sec/cm5 ! + + + !SVRI !1220gqd-ant-y^2/cm5 ! + + + !PVR !544dyn-sec/cm5 ! + + + !PVRI !227zed-uvy-s^2/cm5 ! + + + !Total systemic resistance!2097dyn-sec/cm5, 7170cbl-lle-s^2/cm5! Echocardiogram David Melendez 10/03/2024: 1. Left ventricle: [...] or suggestive of Atrial Fibrillation * AT/AF Meally: 67.8% * Total number of events: 2774 Tachycardia: AF w/RVR * Stored EGMs listed as NSVT AND SVT are consistent with or suggestive of Atrial Fibrillation with Rapid Ventricular Response * AT/AF Meally: 67.8% * Total episodes: 9 * Longest [...] testing. She underwent SMA stent placement at [facility] September 2024. She has been treated [...] daily. Carla Burdick MD documented in this encounterSelect Medical Specialty [facility]06-30-2025 NoteHNO ID: [id number] Author: CARLA BURDICK MD Service: ? Author Type: Physician Type: Progress Notes Filed: 01/01/2025 12:27 Note Text: [facility]STITUTE SECTION OF REGIONAL CARDIOLOGY Cardiology ([facility]) [address] [facility] [address] OUTPATIENT VISIT DATE 01/01/2025 PRIMARY CARE PHYSICIAN: Doreen Le [address] [place] [address] HISTORY OF PRESENT ILLNESS: Ms. Sanches is [...] regurgitation Pacemaker 10/21/[address] SLEAM BARTLETT [id number] pulse generator, his bundle lead, right atrial lead Peripheral arterial disease Rheumatic fever Steatosis, liver 03/26/2014 fatty liver on US. 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 [...] mg iron) tabl (more content not included)... [facility]06-24-2025 Telephone encounter Note* Telephone Encounter [...] answered at this time. Albin Gu APRN.CNP [facility]-24-[facility]25 Miscellaneous Notes* Telephone Encounter - Albin Gu [...] time. Albin Gu APRN.CNP documented in this encounterSelect Medical Specialty [facility]06-18-2025 NoteHNO ID: [id number] Author: LARS SILVA, DO Service: ? Author Type: Physician Type: Progress Notes Filed: 12/20/2024 17:56 Note Text: Heart , [facility] [place] DEPARTMENT OF VASCULAR SURGERY OUTPATIENT VISIT DATE [...] clinic. She had a stent placed in [place] in September. She was recently admitted to [place] for anemia. She has noted increased swelling. 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 Lua PACEMAKER 10/2019 PART. HYSTERECTOMY W/WO RMVL OVARIES/TUBES 1974 h/o cervical cancer ovaries remain PAST SURGICAL HISTORY OF 1996 Aortic valve repair, Dr. Apodaca PAST SURGICAL HISTORY OF 2001 [address] Beltrán, [facility] PAST SURGICAL HISTORY OF 2016 [...] procedure on 01/12/22, treate (more content not included)...[facility] History of Present illness Narrative* Lars Silva, - 12/20/2024 8:53 AM EDT Images from the original note were not included. [facility] [place] DEPARTMENT OF VASCULAR SURGERY OUTPATIENT VISIT DATE [...] clinic. She had a stent placed in [place] in September. She was recently admitted to [place] for anemia. She has noted increased swelling. 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 Lua PACEMAKER 10/2019 PART. HYSTERECTOMY W/WO RMVL OVARIES/TUBES 1973 h/o cervical cancer ovaries remain PAST SURGICAL HISTORY OF 1996 Aortic valve repair, Dr. Apodaca PAST SURGICAL HISTORY OF 2001 [address] Beltrán, [facility] PAST SURGICAL HISTORY OF 2016 [...] 2024 TIME: 8:53 AM documented in this encounterSelect Medical Specialty [facility]06-17-2025 NoteHNO ID: [id number] Author: GWEN VALENTINE RN Service: ? Author [...] bleeding or swelling noted. Pt tolerated well. [facility] CenterDgihgqfn30-99-1313 History of Present illness Narrative* Gwen Valentine, [...] note were not included. [facility] [place] [facility] Heart Failure Clinic OUTPATIENT VISIT [...] overloaded and was worried about [place] to [place] in a few days. Discussed with her taking lasix as it was prescribed. As her spironolactone was stopped, did advise patient restart this at 25 mg once a day for four days only. She was instructed to call office in a week to review symptoms. On 10/15, patient presented back to [facility] for gastrointestinal bleed. She had a [...] and entresto. The patient wished to leave [place] so she could return to [place]. Cardiology and Pulmonary agreed with discharge. 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 Lua PACEMAKER 10/2019 PART. HYSTERECTOMY W/WO RMVL OVARIES/TUBES 1973 h/o cervical cancer ovaries remain PAST SURGICAL HISTORY OF 1996 Aortic valve repair, Dr. Apodaca PAST SURGICAL HISTORY OF 2001 [address] Beltrná, [facility] PAST SURGICAL HISTORY OF 2015 [...] impression and interpretation as noted. Federico Hammonds [id number] DEVICE CHECK 10/04/2024: Tachycardia: AF * Stored EGMs are consistent with or suggestive of Atrial Fibrillation * AT/AF Meally: 67.8% * Total number of events: 2774 Tachycardia: AF w/RVR * Stored EGMs listed as NSVT AND SVT are consistent with or suggestive of Atrial Fibrillation with Rapid Ventricular Response * AT/AF Meally: 67.8% * Total episodes: 9 * Longest episode: 28 SECS * Fastest episode:207 BPM Remote Device Evaluation [employer] [facility] * Device type: DUAL LEAD PACEMAKER * Presenting Rhythm: AF/ VS * Battery Status: Battery is at OK, 9.83 yrs . * Atrial Arrhythmias: There have been 12 atrial detections. Anticoagulants listed: _LAAC____ * Ventricular Arrhythmias: There have been __0 TRUE_ ventricular detections. * Lead Measurements: Capture thresholds, sensing, and lead impedances are appropriate. * Other Diagnostics: AP 64.4 PSYCH SOCIAL WORKER 9.3% Tachycardia: AF * Stored EGMs are consistent with or suggestive of Atrial Fibrillation * AT/AF Meally: 8.2% (THIS PERCENT IS INACCCURATE,LIKELY CLOSER TO [...] Discussed red flags and when to call MD/FOUNDRY WORKER or [employer] [facility] [employer] ED. Medications reconciled at end of visit: yes I spent 40 minutes in this visit, with more than 50% of the time devoted to patient counseling. Recording using [employer] software for draft documentation was discussed with patient/authorized workforce services representative. All questions were welcome and answered. Patient/authorized workforce services representative agreed toproceed. SIGNATURE: Albin Gu APRN.CNP PATIENT NAME: Berta Sanches DATE: December 19, 2024 TIME: 1100 documented in this encounterSelect Medical Specialty [facility]06-17-2025 NoteHNO ID: [id number] Author: ALBIN GU APRN.CNP Service: ? Author Type: Nurse Practitioner Type: Progress Notes Filed: 12/19/2024 11:45 Note Text: [facility] [place] [facility] Heart [facility] OUTPATIENT VISIT [...] and was worried about traveling home to [place] in a few days. Discussed with her taking lasix as it was prescribed. As her spironolactone was stopped, did advise patient restart this at 25 mg once a day for four days only. She was instructed to call office in a week to review symptoms. On 10/15, patient presented back to [facility] for gastrointestinal bleed. She had a [...] and entresto. The patient wished to leave [place] so she could return to [place]. Cardiology and Pulmonary agreed with discharge. Patient [...] monitoring her sodium intake (more content not included)...[facility] CenterIpyyxeij24-46-9546 Instructions* Patient Instructions* Albin Gu APRN.GRAVEDIGGER - 12/19/2024 10:59 AM EDT 40 mg [...] or concern, you can call me at [phone]. documented in this encounterSelect Medical [facility]06-11-2025 Telephone encounter Note * Telephone Encounter - Alex Gonzalez - 12/13/2024 9:28 AM EDT Transitional Care Management (TCM) [facility] Monitoring Program Provider Action / FYI: N/A SUMMARY: Outreach type: INITIAL OUTREACH Discharge Network Status: In-Network Discharge Source of Patient: [facility] TCM Discharge Report Patient discharged from [place] on December 12. Admitted for Acute on chronic diastolic CHF (congestive heart failure) (HCC). Contact made with patient: No - next outreach attempt will be on next business day. Alex Betancourt December 13, 2024 9:35 AM [facility]-11-2025 Miscellaneous Notes* Telephone Encounter - Alex Gonzalez - 12/13/2024 9:28 AM EDT Transitional Care Management (TCM) [facility] Monitoring [facility] Provider Action / FYI: N/A SUMMARY: Outreach type: INITIAL OUTREACH Discharge Network Status: In-Network Discharge Source of Patient: [facility] TCM Discharge Report Patient discharged from [place] on December 12. Admitted for Acute on chronic diastolic CHF (congestive heart failure) (HCC). Contact made with patient: No - next outreach attempt will be on next business day. Alex Betancourt December 13, 2024 9:35 AM documented in this encounterSelect Medical [facility]ty [facility]06-10-2025 NoteHNO ID: [id number] Author: STACIE LONDONO RN Service: Care Management [...] Physician Primary Care Physician Name/Phone: Deysi Collazo APRN.GRAVEDIGGER [phone] Additional Information: na Discharge order written for today, patient discharged home with no services. Family will transport. SIGNATURE: Stacie Londono RN PATIENT NAME: Berta Sanches DATE: December 12, 2024 TIME: 9:13 AMOhiohealth Southeastern Medical CenterNvujyloe39-11-7199 Telephone encounter Note* Telephone Encounter - Deysi Collazo APRN.CNP - 12/11/2024 1:06 PM EDT Noted. Deysi Collazo APRN.JASPREET [facility]06-09-2025 Miscellaneous Notes* Telephone Encounter - Deysi Collazo APRN.CNP - 12/11/2024 1:06 PM EDT Noted. Deysi Collazo APRN.CNP * Telephone Encounter - Sigifredo Rivera LPN - 12/11/2024 11:15 AM EDT Pt re admitted to [facility]. Sigifredo Rivera LPN * Telephone Encounter - Marilyn Cesar - 12/11/2024 11:05 AM EDT Patient called to cancel hospital follow up due to re admission yesterday 12/10/2024 documented in this encounterSelect Medical Specialty [facility]06-09-2025 NoteHNO ID: [id number] Author: MAXIMINO JENNINGS RN Service: Care Management Author Type: Registered Nurse Type: Care Mgt Initial Assessment Filed: 12/11/2024 11:51 Note Text: CARE MANAGEMENT: ASSESSMENT AND DISCHARGE PLAN SERVICE DATE: December 11, 2024 SERVICE TIME: 11:50 AM PCP: Deysi Collazo APRN.CNP Primary Contact: Extended Emergency Contact Information Primary Emergency Contact: Natanael Sanches Address: [address] [place] [id number] [place] [address] OF [facility] Mobile Relation: Spouse Admission Status: Inpatient Insurance Provider: [employer] MED[employer]ARE PPO Discharge Planning requested by: Per Department Practice Potential Transition Plans Home Advance Directives Current Advance Directive: Living Will, Health Care Power of Senior Software Analyst In Chart: No Current Living Arrangements and [...] None Discharge Planning Patient Goal(s): General wellness [place] of Choice Explained: [place] of Choice Given: No Reason Not Given: [...] assessment. Patient from home with her , I-CYLINDER FILLER, drives minimally. to transport upon DC. CM assigned will continue to follow for DC planning needs. 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 Patient presenting with [...] Diego Knowles MD DATE: 12/11/2024 TIME: 11:47 [facility] HospitalJnywainf68-59-9801 Telephone encounter Note* Telephone Encounter - Sigifredo Rivera LPN - 12/11/2024 11:15 AM EDT Pt re admitted to [facility]. Sigifredo Rivera LPN [facility]-09-2025 Telephone encounter Note* Telephone Encounter - Marilyn Cesar - 12/11/2024 11:05 AM EDT Patient called to cancel hospital follow up due to re admission yesterday 12/10/2024 [facility]-2025 History of Present illness Narrative* Carla Burdick MD - 11/20/2024 8:00 AM EDT Images from the original note were not included. HEART AND VASCULAR INSTITUTE SECTION OF REGIONAL CARDIOLOGY Cardiology ([facility]) [address] [facility] [id number] OUTPATIENT VISIT DATE PRIMARY CARE PHYSICIAN: Doreen Le [address] [place] [address] HISTORY OF PRESENT ILLNESS: Ms. 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 Lua PACEMAKER 10/2019 PART. HYSTERECTOMY W/WO RMVL OVARIES/TUBES 1973 h/o cervical cancer ovaries remain PAST SURGICAL HISTORY OF 1996 Aortic valve repair, Dr. Apodaca PAST SURGICAL HISTORY OF 2001 [address] Beltrán, [facility] PAST SURGICAL HISTORY OF 2015 [...] palpate. CARDIOVASCULAR MEDICINE TESTING: Right Heart Catheterization [facility] 10/24/2024: Cardiac output (Qs) !4.1L/min ! [...] !SVR !1650dyn-sec/cm5 ! + + + !SVRI !4495gdf-lpt-q^2/cm5 ! + + + !PVR !544dyn-sec/cm5 ! + + + !PVRI !595zio-gkh-t^2/cm5 ! + + + !Total systemic resistance!2097dyn-sec/cm5, 9935evh-oqt-n^2/cm5! Echocardiogram [facility] 10/03/2024: 1. Left ventricle: The cavity [...] or suggestive of Atrial Fibrillation * AT/AF Meally: 67.8% * Total number of events: 2774 Tachycardia: AF w/RVR * Stored EGMs listed as NSVT AND SVT are consistent with or suggestive of Atrial Fibrillation with Rapid Ventricular Response * AT/AF Meally: 67.8% * Total episodes: 9 * Longest [...] testing. She underwent SMA stent placement at [facility] September 2024. She has been treated [...] TABLET Carla Burdick MD documented in this encounterSelect Medical Specialty [facility]05-19-2025 NoteHNO ID: [id number] Author: CARLA BURDICK MD Service: ? Author Type: Physician Type: Progress Notes Filed: 11/20/2024 08:50 Note Text: HEART AND VASCULAR INSTITUTE SECTION OF REGIONAL CARDIOLOGY Cardiology ([facility]) [address] [facility] [id number] OUTPATIENT VISIT DATE PRIMARY CARE PHYSICIAN: Doreen Le [address] [facility] [place] [address] HISTORY OF PRESENT ILLNESS: Ms. 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 Lua PACEMAKER 10/2019 PART. HYSTERECTOMY W/WO RMVL OVARIES/TUBES 1974 h/o cervical cancer ovaries remain PAST SURGICAL HISTORY OF 1996 Aortic valve repair, Dr. Apodaca PAST SURGICAL HISTORY OF 2001 [address] Beltrán, [facility] PAST SURGICAL HISTORY OF 2015 [...] tablet by mouth t (more content not included)...[facility]05-14-2025 Telephone encounter Note* Telephone Encounter - Mckenzie Rodriguez MA - 11/15/2024 3:39 PM EDT Scheduled. Mckenzie Rodriguez MA [facility]05-14-2025 Miscellaneous Notes* Telephone Encounter - Mckenzie Rodriguez [...] metabolic panel and BNP. documented in this encounterSelect Medical Specialty [facility]05-14-2025 Telephone encounter Note * Telephone Encounter - [...] repeat a basic metabolic panel and BNP. [facility]-05-2025 Instructions* Patient Instructions* Carla Burdick MD - 11/06/2024 3:33 PM EDT We are changing the Furosemide to Torsemide 20 mg two times per day Stop taking the Losartan documented in this encounterSelect Medical Specialty [facility]05-05-2025 History of Present illness Narrative* Carla Burdick MD - 11/06/2024 2:40 PM EDT Images from the original note were not included. [facility] INSTITUTE SECTION OF REGIONAL CARDIOLOGY Cardiology ([facility]) [address] [facility] [id number] OUTPATIENT VISIT DATE 11/06/2024 PRIMARY CARE PHYSICIAN: Doreen Le [address] [place] [address] HISTORY OF PRESENT ILLNESS: Ms. Sanches is [...] admitted to the hospital while vacationing in [place]. She underwent SMA stent placement. This was followed by a long admission for decompensated congestive heart failure in the setting of the renal insufficiency. 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 Lua PACEMAKER 10/2019 PART. HYSTERECTOMY W/WO RMVL OVARIES/TUBES 1974 h/o cervical cancer ovaries remain PAST SURGICAL HISTORY OF 1996 Aortic valve repair, Dr. Apodaca PAST SURGICAL HISTORY OF 2001 [address] Beltrán, [facility] PAST SURGICAL HISTORY OF 2016 [...] palpate. CARDIOVASCULAR MEDICINE TESTING: Right Heart Catheterization [facility] 10/24/2024: Cardiac output (Qs) !4.1L/min ! [...] !SVR !1650dyn-sec/cm5 ! + + + !SVRI !0589rat-pmy-v^2/cm5 ! + + + !PVR !544dyn-sec/cm5 ! + + + !PVRI !934bra-ups-f^2/cm5 ! + + + !Total systemic resistance!2097dyn-sec/cm5, 6515ynt-enq-x^2/cm5! Echocardiogram [facility] 10/03/2024: 1. Left ventricle: The cavity [...] or suggestive of Atrial Fibrillation * AT/AF Meally: 67.8% * Total number of events: 2774 Tachycardia: AF w/RVR * Stored EGMs listed as NSVT AND SVT are consistent with or suggestive of Atrial Fibrillation with Rapid Ventricular Response * AT/AF Meally: 67.8% * Total episodes: 9 * Longest [...] testing. She underwent SMA stent placement at [facility] September 2024. She has been treated [...] I65.23 Carla Burdick MD documented in this encounterSelect Medical Specialty [facility]05-05-2025 NoteHNO ID: [id number] Author: CARLA BURDICK MD Service: ? Author Type: Physician Type: Progress Notes Filed: 11/06/2024 17:01 Note Text: [facility]STITUTE SECTION OF REGIONAL CARDIOLOGY Cardiology ([facility]) [address] [facility] [id number] OUTPATIENT VISIT DATE 11/06/2024 PRIMARY CARE PHYSICIAN: Doreen Le [address] [place] [address] HISTORY OF PRESENT ILLNESS: Ms. Sanches is [...] admitted to the hospital while vacationing in [place]. She underwent SMA stent placement. This was followed by a long admission for decompensated congestive heart failure in the setting of the renal insufficiency. 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 Lua PACEMAKER 10/2019 PART. HYSTERECTOMY W/WO RMVL OVARIES/TUBES 1973 h/o cervical cancer ovaries remain PAST SURGICAL HISTORY OF 1996 Aortic valve repair, Dr. Apodaca PAST SURGICAL HISTORY OF 2001 [address] Beltrán, [facility] PAST SURGICAL HISTORY OF 2015 [...] Hypotension MEDICATIONS: clopidogrel (PLAVIX) (more content not included)...[facility] 11-03-2024 Telephone encounter Note* Telephone Encounter - Deysi Collazo APRN.CNP - 11/03/2024 4:29 PM EDT Looks like patient was seen today at heart failure clinic and had repeat labs. From notes, it lookslike patient continued to refuse ER. She has an appt w/ cardiology on Wednesday and is to repeat labs at that time. [facility]05-02-2025 Miscellaneous Notes* Telephone Encounter - Deysi Collazo [...] the ER. stated the kidney doctor at [facility] said her levels are not [...] patient in to the heart center at [facility] today for the IVF. He [...] and Laboratory monitoring.Patient was not d/c'd from [facility], she left AMA. MONIQUE can cause residential damage and if uncorrected patient could end [...] proceed to ER immediately. documented in this encounterSelect [facility] Telephone encounter Note * Telephone Encounter - [...] with plan of care. Albin Gu APRN.CNP [facility]05-02-2025 Miscellaneous Notes* Telephone Encounter - Albin Gu [...] care. Albin Gu APRN.CNP documented in this encounterSelect [facility] History of Present illness Narrative* Gwen Valentine [...] note were not included. [facility] [place] [facility] Heart Failure Clinic OUTPATIENT VISIT DATE November 03, 2024 OUTPATIENT VISIT TYPE ESTABLISHED PRIMARY CARE PHYSICIAN: Deysi Collazo APRN.CNP CHIEF COMPLAINT: Patient presents with: Breathing Problem Leg Edema HISTORY OF PRESENT ILLNESS: Betra Sanches is a 79 year old female [...] feeling fluid overloaded and [facility] [place]. Discussed with her taking lasix as it was prescribed. As her spironolactone was stopped, did advise patient restart this at 25 mg once a day for four days only. She was instructed to call office in a week to review symptoms. On 10/15, patient presented back to [facility] for gastrointestinal bleed. She had a [...] and entresto. The patient wished to leave [place] so she could return to [place]. Cardiology and Pulmonary agreed with discharge. Today, the patient reports feeling okay. Since she was hospitalized in [place], she has not felt that well. Feels very tired. Denies shortness of breath. Was seen by her PCP on Wednesday who suggested patient be admitted due to significant worsening in kidney function however, the patient and husbanddeclined admission as she just returned home the day before. States she was started on bumex drip and then received oral bumex while in [place] and noted a worsening in kidney function. [...] chicken, asparagus and s alad. While in [place], she was very conscious about her diet. She weighed every day. She feels after thefirst hospitalization, she gained approx 20 lbs which she did call and discuss this with this HF OPTICAL MANAGER. Wearing lidocaine patch over site to right side of neck as she mentions having a temporary dialysisport in place during first hospitalization. This area was bothersome to her however, she does mention the discomfort is improving. Does not have a stable attendant at this time. Can lay flat with [...] morning meds 3. SSS (sick sinus syndrome) ([facility]) - ICD9: 427.81, ICD10: I49.5 -s/p PPM [...] (HCC) Pedro aneurysm of anterior communicating artery ([facility]) Dr. Aaron [facility] Bilateral carotid artery stenosis 11/26/2016 05/27/16 moderate 50-69% stenosis right and left Bilateral pneumonia 07/20/2015 Cancer of cervix (HCC) Cervical cancer (HCC) 1973 Chest pain 06/01/2015 negative work up with nuclar stress CHF (congestive heart failure) ([facility]) Cholesteatoma of right ear surgical removal Chronic mastoiditis of left side Chronic renal failure, stage 3b (HCC) 04/15/2022 Diabetes ([facility]) Diabetes (HCC) GERD (gastroesophageal reflux disease) H/O: 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 Lua PACEMAKER 10/2019 PART. HYSTERECTOMY W/WO RMVL OVARIES/TUBES 1974 h/o cervical cancer ovaries remain PAST SURGICAL HISTORY OF 1996 Aortic valve repair, Dr. Apodaca PAST SURGICAL HISTORY OF 2001 [address] Beltrán, [facility] PAST SURGICAL HISTORY OF 2015 [...] impression and interpretation as noted. Federico Hammonds [id number] I have personally reviewed the Laboratory Testing and Echocardiogram. COUNSELING: We discussed the following non-pharmacological measures during this visit: Smoking and alcohol abstinence/cessation, if applicable Dietary and medication compliance Monitoring daily weights and blood pressures Exercise regimen When to call our office Heart Failure Education Booklet: Previously given. Discussed red flags and when to call MD/FOUNDRY WORKER or [facility]. Medications reconciled at end of visit: yes I spent 60 minutes in this visit, with more than 50% of the time devoted to patient counseling. SIGNATURE: Albin Gu APRN.CNP PATIENT NAME: Berta Sanches DATE: November 03, 2024 TIME: 0855 documented in this encounterSelect [facility]25 NoteHNO ID: [id number] Author: GWEN VALENTINE RN Service: ? Author [...] No bleeding, no swelling noted. Pt tolerated well.[facility] [id number] NoteHNO ID: [id number] Author: ALBIN GU APRN.CNP Service: ? Author Type: Nurse Practitioner Type: Progress Notes Filed: 11/03/2024 10:28 Note Text: [facility] [place] [facility] Heart Failure Clinic OUTPATIENT VISIT [...] and was worried about traveling home to [place] in a few days. Discussed with her taking lasix as it was prescribed. As her spironolactone was stopped, did advise patient restart this at 25 mg once a day for four days only. She was instructed to call office in a week to review symptoms. On 10/15, patient presented back to [facility] for gastrointestinal bleed. She had a [...] and entresto. The patient wished to leave [place] so she could return to [place]. Cardiology and Pulmonary agreed with discharge. Today, the patient reports feeling okay. Since she was hospitalized in [place], she has not felt that well. Feels very tired. Denies shortness of breath. Was seen by her PCP on Wednesday who suggested patient be admitted due to significant worsening in kidney function however, the patient and declined admission as she just returned home the day before. States she was started on bumex drip and then received oral bumex while in [place] and noted a worsening in kidney function. [...] roasted chicken, asparagus and salad. While in [place], she was very conscious about her diet. She weighed every day. She feels after the first hospitalization, she gained approx 20 lbs which she did call and discuss this with this HF OPTICAL MANAGER. Wearing lidocaine patch over site to right side of neck as she mentions having a temporary dialysis port in place during first hospitalization. This area was bothersome to her however, she does mention the discomfort is improving. Does not have a stable attendant at this time. Can lay flat with [...] and kidney function sug (more content not included)...[facility] [id number] Instructions* Patient Instructions* Albin Gu APRN.CNP - [...] or concern, you can call me at [phone]. documented in this encounterSelect [facility] Telephone encounter Note * Telephone Encounter - Quin Lama MA - 11/02/2024 9:00 AM EDT Spoke with patient's , Natanael. Patient was in background listening. Relayed message below in detail. Reiterated need for ER for IVF and lab monitoring. Both patient and spouse again declined going to the ER. stated the kidney doctor at [facility] said her levels are not [...] patient in to the heart center at [facility] today for the IVF. He [...] be ordered without appointment. Quin Lama MA [facility]04-30-2025 Telephone encounter Note* Telephone Encounter - Irma Hwang RN - 11/01/2024 1:52 PM EDT Patient scheduled for 11/06/24. Irma Hwang RN [facility]04-30-2025 Miscellaneous Notes* Telephone Encounter - Irma Hwang RN - 11/01/2024 1:52 PM EDT Patient scheduled for 11/06/24. Irma Hwang RN documented in this encounterSelect Medical [facility]04-29-2025 Telephone encounter Note * Telephone Encounter - Shaye Domingo APRN.JASPREET - 10/31/2024 4:46 PM EDT Creatinine is not improved and likely will not improve at home. Need IVF and Laboratory monitoring.Patient was not d/c'd from [facility], she left AMA. MONIQUE can cause vending machine coin collector damage and if uncorrected patient could end [...] worse and not better if not corrected. [facility]-29-2025 Telephone encounter Note* Telephone Encounter - Radah Pyle RN - 10/31/2024 2:20 PM EDT [...] Please review and advise, Radha Pyle RN [facility]04-29-2025 Telephone encounter Note* Telephone Encounter - Shaye Domingo APRN.CNP - 10/31/2024 1:35 PM EDT Left message for patient to return call. Patient's kidney function has gotten significantly worse and she needs to proceed to ER immediately. [facility]04-29-2025 NoteHNO ID: [id number] Author: SHAYE DOMINGO APRN.CNP Service: ? Author Type: Nurse Practitioner Type: Progress Notes Filed: 10/31/2024 12:52 Note Text: Chief Complaint Patient presents with: Hospital F/U [facility] Berta Sanches is a 79 year old female who presents here today for Above Complaints.. Acute Mesenteric Ischemia: - Initially admitted to [facility] on 10/02/2024. - Underwent femoral ultrasound-guided angiogram with angioplasty and stenting of the SMA. - Required CRRT for MONIQUE post-op. - Developed AFib with RVR post-op. - Discharged after 23-day hospitalization. Acute on Chronic Heart Failure: - Given IV Lasix during initial admission. 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 Lua PACEMAKER 10/2019 PART. HYSTERECTOMY W/WO RMVL OVARIES/TUBES 1974 h/o cervical cancer ovaries remain PAST SURGICAL HISTORY OF 1996 Aortic valve repair, Dr. Apodaca PAST SURGICAL HISTORY OF 2001 [address] Beltrán, [facility] PAST SURGICAL HISTORY OF 2016 [...] 24 hr tablet Take (more content not included)...[facility]04-29-2025 History of Present illness Narrative* Shaye Domingo APRN.GRAVEDIGGER - 10/31/2024 11:11 AM EDT Chief Complaint Patient presents with: Hospital F/U [facility] Berta Sanches is a 79 year old female who presents here today for Above Complaints.. Acute Mesenteric Ischemia: - Initially admitted to [facility] on 10/02/2024. - Underwent femoral ultrasound-guided angiogram with angioplasty and stenting of the SMA. - Required CRRT for MONIQUE post-op. - Developed AFib with RVR post-op. - Discharged after 23-day hospitalization. Acute on Chronic Heart Failure: - Given IV Lasix during initial admission. 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 Lua PACEMAKER 10/2019 PART. HYSTERECTOMY W/WO RMVL OVARIES/TUBES 1973 h/o cervical cancer ovaries remain PAST SURGICAL HISTORY OF 1996 Aortic valve repair, Dr. Apodaca PAST SURGICAL HISTORY OF 2001 [address] Beltrán, [facility] PAST SURGICAL HISTORY OF 2015 [...] CONSULT TO PHYSICAL THERAPY - CONSULT TO OPERATING SYSTEM PROGRAMMER 6. Acute on chronic diastolic congestive heart failure (HCC) - ICD9: 428.33, 428.0, ICD10: I50.33 - HFpEF 50+ - Compensated - Continue current medications - Encouraged sodium restriction - Encouraged daily weights - Call if 3 lbs gained in 1 days - Will contact Dr. Burdick's office for sooner follow up to discuss recommendations from cardiology/nephrology from [facility]. 7. Hospital discharge follow-up - ICD9: V67.59, ICD10: Z09 -23 days inpatient at [facility]. Shaye Domingo APRN.CNP documented in this encounterSelect Medical [facility]-2025 Telephone encounter Note * Telephone Encounter - Albin Gu APRN.CNP - 10/12/2024 12:29 PM EDT Patient called to schedule appt in HF Clinic. Patient also mentions she is currently in [place]. She was admitted to the hospital for [...] answered at this time. Albin Gu APRN.CNP [facility]04-10-2025 Miscellaneous Notes* Telephone Encounter - Albin Gu APRN.CNP - 10/12/2024 12:29 PM EDT Patient called to schedule appt in HF Clinic. Patient also mentions she is currently in [place]. She was admitted to the hospital for [...] time. Albin Gu APRN.CNP documented in this encounterSelect Medical Specialty [facility]01-27-2025 Telephone encounter Note * Telephone Encounter - Melida Koo APRN.CNP - 07/31/2024 11:54 AM EST Pt called to request refill for KDur as she has run out of prescription. She states that she is currently in [place] and will be in [place] until October. [facility] called in [place], [place]. Spoke with Pharmacist on duty. Rx for KDur 10 meq PO daily given verbally #90 with no refills. Melida Koo APRN.CNP [facility] Work Phone: [phone] Miscellaneous Notes* Telephone Encounter - Melida Koo APRN.CNP - 07/31/2024 11:54 AM EST Pt called to request refill for KDur as she has run out of prescription. She states that she is currently in [place] and will be in [place] until October. [facility] called in [place], [place]. Spoke with Pharmacist on duty. Rx for KDur 10 meq PO daily given verbally #90 with no refills. Melida Koo APRN.CNP documented in this encounterSelect Medical [facility]ty [facility]01-03-2025 NoteHNO ID: [id number] Author: SIGIFREDO RIVERA LPN Service: ? Author [...] membrane assessed by LIP pre and post procedureChillicothe [facility]01-03-2025 NoteHNO ID: [id number] Author: DEYSI COLLAZO APRN.GRAVEDIGGER Service: ? Author Type: Nurse Practitioner Type: Progress Notes Filed: 07/07/2024 12:41 Note Text: This is a 78 year old female who presents today with: Patient presents with: Establish Care HISTORY OF PRESENT ILLNESS: Berta Sanches is a 78 year old female. Patient presents with: Establish Care Pt presents today to [facility]. HTN: Patient is compliant with meds Yes. 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 Lua PACEMAKER 10/2019 PART. HYSTERECTOMY W/WO RMVL OVARIES/TUBES 1973 h/o cervical cancer ovaries remain PAST SURGICAL HISTORY OF 1996 Aortic valve repair, Dr. Apodaca PAST SURGICAL HISTORY OF 2001 [address] Beltrán, [facility] PAST SURGICAL HISTORY OF 2016 [...] Type 2 DM - (more content not included)...[facility]10-04-2024 Instructions* Patient Instructions* Albin Gu APRN.GRAVEDIGGER - 04/07/2024 9:18 AM EDT Continue current [...] or concern, you can call me at [phone]. documented in this encounterSelect Medical [facility]ty [facility]10-[facility]-2024 History of Present illness Narrative* Albin Gu APRN.JASPREET - 04/07/2024 9:00 AM EDT Images from the original note were not included. [facility] [place] [facility] Heart Failure Clinic OUTPATIENT VISIT [...] boat and take it out on [place] to fish. 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 Lua PACEMAKER 10/2019 PART. HYSTERECTOMY W/WO RMVL OVARIES/TUBES 1974 h/o cervical cancer ovaries remain PAST SURGICAL HISTORY OF 1996 Aortic valve repair, Dr. Apodaca PAST SURGICAL HISTORY OF 2001 [address] Beltrán, [facility] PAST SURGICAL HISTORY OF 2016 [...] * Heart Rate Histograms reviewed AP 45%, PSYCH SOCIAL WORKER 10.4% Title: Tachycardia: AF * Stored EGMs are consistent with or suggestive of Atrial Fibrillation * AT/AF Meally: 38.7% * Total number of events: 4,598 [...] Discussed red flags and when to call MD/FOUNDRY WORKER or [facility]. Medications reconciled at end of visit: yes I spent 30 minutes in this visit, with more than 50% of the time devoted to patient counseling. SIGNATURE: Albin Gu APRN.CNP PATIENT NAME: Berta Sanches DATE: April 07, 2024 TIME: 904 documented in this encounterSelect Medical Specialty [facility]10-04-2024 NoteHNO ID: [id number] Author: ALBIN GU APRN.CNP Service: ? Author Type: Nurse Practitioner Type: Progress Notes Filed: 04/07/2024 09:57 Note Text: [facility] [place] [facility] Heart Failure Clinic OUTPATIENT VISIT [...] day and added spironolactone. Follows with Dr. Budrick and was last seen in January. Past [...] a boat and take it out on [place] to [employer]. IMPRESSION: NYHA Functional Class: II Stage: C [...] left Bilateral pneumonia 07/20/ (more content not included)...[facility] 02-21-2024 Telephone encounter Note* Telephone [...] of plan of care. Melida Koo APRN.CNP [facility] Work Phone: [phone]) 324-923608-19-2024 Miscellaneous Notes* Telephone Encounter - Melida Koo [...] care. Melida Koo APRN.CNP documented in this encounterSelect Medical Specialty [facility]08-05-2024 Telephone encounter Note * Telephone Encounter - [...] to Maribell as well. Ying Fuentes LPN [facility]08-05-2024 Miscellaneous Notes* Telephone Encounter - Ying Fuentes [...] BNP. Maribell King APRN.CNP documented in this encounterSelect Medical Specialty Hospital [facility]08-05-2024 Telephone encounter Note * Telephone Encounter - Maribell King APRN.CNP - 02/07/2024 12:47 PM EDT Patient should double Lasix to 40 mg BID for 3 days, then recheck BMP that has been ordered per PCP. Please ask patient to monitor daily weights. Maribell King APRN.CNP [facility]08-05-2024 Telephone encounter Note* Telephone Encounter - Melida oKo APRN.CNP - 02/07/2024 8:27 AM EDT Pt [...] left for call back. Melida Koo APRN.CNP [facility] Work Phone: [phone]) 621-166708-05-2024 Miscellaneous Notes* Telephone Encounter - Melida Koo [...] back. Melida Koo APRN.JASPREET documented in this encounterSelect Medical Specialty [facility]08-02-2024 Telephone encounter Note * Telephone Encounter - Ying Fuentes LPN - 02/04/2024 2:13 PM EDT I spoke to [employer] and informed them of Maribell's response to lab results and recommendations. Patient voiced understanding. Patient states BNP is elevated from 2 months ago. Patient asking if she should make any changes. Patient c/o weight gain and SOB with activity. Ying Fuentes LPN [facility]08-02-2024 Telephone encounter Note* Telephone Encounter - Ying Fuentes LPN - 02/04/2024 2:12 PM EDT ----- Message from Maribell King APRN.CNP sent at 02/04/2024 2:02 PM EDT ----- Please call the patient and report lab results revealed stable kidney function, normal potassium level, normal liver function, cholesterol is under good control, and elevated BNP. Maribell King APRN.CNP [facility]08-02-2024 Telephone encounter Note* Telephone Encounter - Albin [...] answered at this time. Albin Gu APRN.CNP [facility]08-02-2024 Miscellaneous Notes* Telephone Encounter - Albin Gu [...] time. Albin Gu APRN.CNP documented in this encounterSelect Medical Specialty [facility]07-15-2024 Instructions* Patient Instructions* Carla Burdick MD - 01/17/2024 10:08 AM EDT We will repeat fasting blood work documented in this encounterSelect Medical Specialty Hospital [facility]07-15-2024 History of Present illness Narrative* Carla Burdick MD - 01/17/2024 9:20 AM EDT Images from the original note were not included. [facility] SECTION OF REGIONAL CARDIOLOGY Cardiology ([facility]) [address] [facility] [id number] OUTPATIENT VISIT DATE 01/17/2024 PRIMARY CARE PHYSICIAN: Doreen Le [address] [place] [address] HISTORY OF PRESENT ILLNESS: Ms. 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 Lua PACEMAKER 10/2019 PART. HYSTERECTOMY W/WO RMVL OVARIES/TUBES 1974 h/o cervical cancer ovaries remain PAST SURGICAL HISTORY OF 1996 Aortic valve repair, Dr. Apodaca PAST SURGICAL HISTORY OF 2001 [address] Beltrán, [facility] PAST SURGICAL HISTORY OF 2016 [...] I73.9 Carla Burdick MD documented in this encounterSelect Medical Specialty [facility]07-15-2024 NoteHNO ID: [id number] Author: CARLA BURDICK MD Service: ? Author Type: Physician Type: Progress Notes Filed: 01/17/2024 10:36 Note Text: [facility] SECTION OF REGIONAL CARDIOLOGY Cardiology ([facility]) [address] [facility] [id number] OUTPATIENT VISIT DATE 01/17/2024 PRIMARY CARE PHYSICIAN: Doreen Le [address] [place] [address] HISTORY OF PRESENT ILLNESS: Ms. 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 Lua PACEMAKER 10/2019 PART. HYSTERECTOMY W/WO RMVL OVARIES/TUBES 1973 h/o cervical cancer ovaries remain PAST SURGICAL HISTORY OF 1996 Aortic valve repair, Dr. Apodaca PAST SURGICAL HISTORY OF 2001 [address] Beltrán, [facility] PAST SURGICAL HISTORY OF 2015 [...] mouth once daily. pota (more content not included)...[facility]06-04-2024 Instructions* Patient Instructions* Deysi Collazo APRN.CNP - 12/07/2023 12:13 PM EDT Continue the same medications. If no better or worsening, start the antibiotic. Start mucinex or coricidin. Let us know if no improvement/worsening. 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 Lua PACEMAKER 10/2019 PART. HYSTERECTOMY W/WO RMVL OVARIES/TUBES 1974 h/o cervical cancer ovaries remain PAST SURGICAL HISTORY OF 1996 Aortic valve repair, Dr. Apodaca PAST SURGICAL HISTORY OF 2001 [address] Beltrán, [facility] PAST SURGICAL HISTORY OF 2015 [...] as needed for worsening/no improvement. Deysi Collazo APRN.GRAVEDIGGER documented in this encounterSelect [facility]-24-[facility]24 History of Present illness Narrative* Valentine Meneses [...] Signature: Valentine Meneses RN documented in this encounterSelect Medical Specialty [facility]05-23-2024 Instructions* Patient Instructions* Albin Gu APRN.JASPREET - [...] question or concern, you cancall me at [phone]. documented in this encounterSelect Medical Specialty [facility]05-23-2024 History of Present illness Narrative* Albin Gu APRN.JASPREET - 11/25/2023 10:00 AM EDT Images from the original note were not included. [facility] [place] [facility] OUTPATIENT VISIT [...] timeline ofover 5 years ago. Was in [place] over the winter for 3 months. Noticed leg swelling while down in [place]. 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 Lua PACEMAKER 10/2019 PART. HYSTERECTOMY W/WO RMVL OVARIES/TUBES 1974 h/o cervical cancer ovaries remain PAST SURGICAL HISTORY OF 1996 Aortic valve repair, Dr. Apodaca PAST SURGICAL HISTORY OF 2001 [address] Beltrán, [facility] PAST SURGICAL HISTORY OF 2015 [...] 25, 2023 TIME: 1000 documented in this encounterSelect Medical Specialty [facility]05-21-2024 History of Present illness Narrative* Chula Morales RN - 11/23/2023 2:39 PM EDT Lab from 11/19/[address] Mujica. Greatly improved with oral iron. Pt notified. No need for OVin Hem/Onc and to follow up with PCP. Pt verbalized understanding. Chula Morales RN documented in this encounterSelect Medical Specialty [facility]05-20-2024 Instructions* Patient Instructions* Deysi Collazo APRN.CNP - 11/22/2023 9:53 AM EDT Continue the same medication. Repeat lab on Wednesday after you see Dr. Rodriguez. Moist heat/ice to the back. Massage to the area. Let us know if any problems/concerns. documented in this encounterSelect Medical Specialty [facility]05-20-2024 History of Present illness Narrative* Deysi Collazo APRN.JASPREET - 11/22/2023 9:08 AM EDT This is a 78 year old female who presents today with: Patient presents with: Hospital Follow Up: [facility] follow up dc'd 11/12/23 dx: CHF HISTORY OF PRESENT ILLNESS: Berta Sanches is a 78 year old female. Patient presents with: Hospital Follow Up: [facility] follow up dc'd 11/12/23 dx: CHF Pt presents today for hospital follow-up. Discharged on 11/11 from [place] w/ dx of CHF. 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 Lua PACEMAKER 10/2019 PART. HYSTERECTOMY W/WO RMVL OVARIES/TUBES 1974 h/o cervical cancer ovaries remain PAST SURGICAL HISTORY OF 1996 Aortic valve repair, Dr. Apodaca PAST SURGICAL HISTORY OF 2001 [address] Beltrán, [facility] PAST SURGICAL HISTORY OF 2016 [...] improvement. Deysi Collazo APRN.JASPREET documented in this encounterSelect Medical Specialty Hospital [facility]05-17-2024 Telephone encounter Note * Telephone Encounter - Albin Gu APRN.CNP - 11/19/2023 8:37 AM EDT Patient called office for instructions on diuretics as her weight is up 5 lbs. She states she was instructed to call the office with questions. This OPTICAL MANAGER has not seen this patient in clinic but is scheduled to see her in the following week. The patient states she has not been able to reach her institution director. She has been taking additional 20 mg [...] Patient agrees and understands. Albin Gu APRN.CNP [facility] Work Phone: 1(656) 143-565105-17-2024 Miscellaneous Notes* Telephone Encounter - Albin Gu APRN.CNP - 11/19/2023 8:37 AM EDT Patient called office for instructions on diuretics as her weight is up 5 lbs. She states she was instructed to call the office with questions. This OPTICAL MANAGER has not seen this patient in clinic but is scheduled to see her in the following week. The patient states she has not been able to reach her institution director. She has been taking additional 20 mg [...] understands. Albin Gu APRN.CNP documented in this encounterSelect Medical Specialty [facility]05-15-2024 Telephone encounter Note * Telephone Encounter - [...] No results found for this basename: BNP [facility]-15-2024 Miscellaneous Notes* Telephone Encounter - Gwen Valentine [...] for this basename: BNP documented in this encounterSelect Medical Specialty Hospital [facility]05-14-2024 Telephone encounter Note * Telephone Encounter - Mona Noonan - 11/16/2023 8:53 AM EDT Called patient and scheduled as Directed Mona Noonan [facility]-14-2024 Miscellaneous Notes* Telephone Encounter - Mona Noonan [...] HEMATOLOGY Edmund Alex PA-C documented in this encounterSelect Medical Specialty Hospital [facility]05-14-2024 History of Present illness Narrative* Geri Montes RN - 11/16/2023 8:15 AM EDT ACM CECY RN Patient identified by name and date of . Reason for review or outreach: Chart Review Cecy Priority Emergency Department Utilization ED DIAGNOSES/REASON(S) FOR ED USE: OTHER FINDINGS/SUMMARY:E.D. visit on 11-09-23 transitioned to [facility] Admit Patient Attributed To: PEDROE Payer: Pradeep CORDOBA Action Taken: No action needed Contact made with patient: No, Chart review only. Signature: Geri Montes RN documented in this encounterSelect Medical Specialty Hospital [facility]05-13-2024 Telephone encounter Note * Telephone Encounter - Nara Malone RN - 11/15/2023 10:32 AM EDT Transitional Care Management (TCM) [facility] Monitoring Program Provider Action / FYI: na SUMMARY: Outreach type: INITIAL OUTREACH Discharge Network Status: In-Network Discharge Source of Patient: [facility] TCM Discharge Report Patient discharged from [place] on 11.09.23. Admitted for Acute on chronic left systolic heart failure . Contact made with patient: Yes, for Initial Outreach Hi my name is Nara Malone RN and I am calling from the [facility] on behalf of your PrimaryCare Provider, Doreen [...] Appointment Center phone number to speak witha traffic signal technician who can assist you with that appointment. [...] Malone RN November 15, 2023 10:35 AM [facility]-13-2024 Miscellaneous Notes* Telephone Encounter - Nara Malone RN - 11/15/2023 10:32 AM EDT Transitional Care Management (TCM) [facility] Monitoring Program Provider Action / FYI: na SUMMARY: Outreach type: INITIAL OUTREACH Discharge Network Status: In-Network Discharge Source of Patient: [facility] TCM Discharge Report Patient discharged from [place] on 11.09.23. Admitted for Acute on chronic left systolic heart failure . Contact made with patient: Yes, for Initial Outreach Hi my name is Nara Malone RN and I am calling from the [facility] on behalf of your PrimaryCare Provider, Doreen [...] Appointment Center phone number to speak witha traffic signal technician who can assist you with that appointment. [...] 15, 2023 10:35 AM documented in this encounterSelect Medical Specialty [facility]05-13-2024 Telephone encounter Note * Telephone Encounter - Ralph Mujica DO - 11/15/2023 9:31 AM EDT Hemoglobin okay. Not urgent. Next new appointment time with either me or Dr. Rodriguez. [facility]-13-2024 Telephone encounter Note* Telephone Encounter - Rachele Bee LPN - 11/15/2023 9:26 AM EDT Dx: 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 (ICD-10-CM)]; Iron malabsorption [K90.9 (ICD-10-CM)] [facility]-13-2024 Telephone encounter Note* Telephone Encounter - Droeen Le PA-C - 11/15/2023 8:31 AM EDT Hospitalist is recommending outpatient iron transfusion. Please schedule. Telephone on 10/31/23 CONSULT TO HEMATOLOGY Edmund Alex PA-C [facility]-10-2024 Telephone encounter Note* Telephone Encounter - Vandana Baird PSS - 11/12/2023 3:45 PM EDT [facility] home referral was received for Heart Failure services. Unfortunately the referral is declined at this time due to geographic location. Thank you for the referral. KAITLYNN Tuttle [facility]-10-2024 Miscellaneous Notes* Telephone Encounter - Vandana Baird [...] interface Date Referral Received: 11/12/2023 [facility] TC Program: HF Consult UD Consult scheduled with: NA Date of : 1945 Age: [age] year old PCP: Doreen Le PA-C Visit address from [facility]: [address] [place] [address] Name of Physician who gave the order: Dr. Rita Rey Other services ordered: None Primary Insurance Company: Payor: [employer] MEDICARE / Plan: T MEDICARE PPO / Product Type: PPO / Primary Insurance ID Number: [id number] documented in this encounterSelect Medical Specialty [facility]05-10-2024 Telephone encounter Note * Telephone Encounter - Vandana Baird PSS - 11/12/2023 3:44 PM EDT Transitional Care Program - Intake Template - for interface Date Referral Received: 11/12/2023 Referral Source: [facility] TC Program: HF Consult UD Consult scheduled with: NA Date of : 1945 Age: [age] year old PCP: Doreen Le PA-C Visit address from [facility]: [address] [place] [address] Name of Physician who gave the order: Dr. Rita Rey Other services ordered: None Primary Insurance Company: Payor: [employer] MEDICARE / Plan: [employer]erm[employer] MEDICARE PPO / Product Type: PPO / Primary Insurance ID Number: [id number] [facility]-10-2024 Evaluation note* Diagnosis Stage 3 chronic kidney disease, unspecified whether stage 3a or 3b CKD (HCC)- Primary documented in this encounter [facility]24 History of Present illness Narrative* Bere Boykin APRN.GRAVEDIGGER - 11/08/2023 4:30 PM EDT Images from the original note were not included. 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 Lua PACEMAKER 10/2019 PART. HYSTERECTOMY W/WO RMVL OVARIES/TUBES 1973 h/o cervical cancer ovaries remain PAST SURGICAL HISTORY OF 1996 Aortic valve repair, Dr. Apodaca PAST SURGICAL HISTORY OF 2001 [address] Beltrán, [facility] PAST SURGICAL HISTORY OF 2015 [...] - May be candidate for DCCV at [facility] once euvolemic 3. Acute on chronic HFmrEF [...] hemodynamic stability, he spouse drove her to [facility] ER. I called report to Dr. Tuttle in theER. CONTACT INFORMATION: Bere Boykin APRN.[facility] Cardiology [address] [facility] [id number] Dept: [phone] I have reviewed the patient's medications and allergies, past medical, surgical, social and family history, updating these as appropriate. See Histories section of the [facility] for a display of this information. 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 Lua PACEMAKER 10/2019 PART. HYSTERECTOMY W/WO RMVL OVARIES/TUBES 1974 h/o cervical cancer ovaries remain PAST SURGICAL HISTORY OF 1996 Aortic valve repair, Dr. Apodaca PAST SURGICAL HISTORY OF 2001 [address] Beltrán, [facility] PAST SURGICAL HISTORY OF 2015 [...] Heart Failure) (Hcc) Sss (Sick Sinus Syndrome) ([facility]) Duodenal Ulcer Type 2 Diabetes Mellitus With Diabetic Peripheral Angiopathy Without Gangrene, Without Long-Term Current Use of Insulin ([facility]) Longstanding Persistent Atrial Fibrillation ([facility]) S/P Placement of Cardiac Pacemaker Ckd (Chronic Kidney Disease) Platelet Inhibition Due to Plavix Diverticulosis Lung Nodule, Solitary Red Blood Cell Antibody Positive Iron Deficiency Anemia Secondary to Inadequate Dietary Iron Intake Iron Malabsorption Chronic Renal Failure, Stage 3b ([facility]) Spondylolisthesis At L4-L5 Level Occlusion of Superior Mesenteric Artery ([facility]) Current Outpatient Medications Medication Sig [...] systolic and diastolic CHF (congestive heart failure) ([facility]) - ICD9: 428.42, 428.0, ICD10: I50.42 5. Dilated cardiomyopathy (HCC) - ICD9: 425.4, ICD10: I42.0 6. Longstanding persistent atrial fibrillation ([facility]) - ICD9: 427.31, ICD10: I48.11 7. SSS (sick sinus syndrome) ([facility]) - ICD9: 427.81, ICD10: I49.5 8. S/P [...] answered. Doreen Le PA-C documented in this encounterSelect Medical Specialty [facility]05-01-2024 Telephone encounter Note * Telephone Encounter - Doreen Le PA-C - 11/03/2023 10:36 AM EDT She needs to see person scheduled next week. She may need additional appointment with the pulmonology specialist in addition but haven't heard from Dr. Joan garcia. Thanks, Edmund Le PA-C [facility]-01-2024 Miscellaneous Notes* Telephone Encounter - Doreen Le PA-C - 11/03/2023 10:36 AM EDT She needs to see person scheduled next week. She may need additional appointment with the pulmonology specialist in addition but haven't heard from Dr. Joan garcia. Thanks, Edmund Le PA-C * Telephone Encounter - Uma Parson MA - 11/02/2023 10:59 AM EDT After review pt is currently scheduled with a Child Watch Attendant in [place] on 11/08/23. This was setup on10/25/23. Her [...] Thanks, Edmund Le PA-C documented in this encounterSelect Medical Specialty [facility]04-30-2024 Telephone encounter Note * Telephone Encounter - Sandra Thacker LPN - 11/02/2023 5:13 PM EDT Patient notified. Verbalized understanding. Is scheduled for for follow up. [facility]-30-2024 Miscellaneous Notes* Telephone Encounter - Sandra Thacker LPN - 11/02/2023 5:13 PM EDT Patient notified. Verbalized understanding. Is scheduled for for follow up. * Telephone Encounter - Doreen Le PA-C - 11/02/2023 5:04 PM EDT Please advise from [employer] message: Hi Cassidy You labs show you [...] PANEL Edmund Alex PA-C documented in this encounterSelect Medical Specialty [facility]04-30-2024 Telephone encounter Note * Telephone Encounter - Doreen Le PA-C - 11/02/2023 5:04 PM EDT Please advise from [employer] message: Hi Cassidy You labs show you [...] BASIC METABOLIC PANEL Thanks, Edmund Le PA-C [facility]-30-2024 Telephone encounter Note* Telephone Encounter - Uma Parson MA - 11/02/2023 10:59 AM EDT After review pt is currently scheduled with a Child Watch Attendant in [place] on 11/08/23. This was setup on10/25/23. Her Cardiology appt with Clara is in January. Is she still following with him or seeing someone new? Uma Parson MA [facility]-30-2024 Telephone encounter Note* Telephone Encounter - Doreen Le PA-C - 11/02/2023 10:54 AM EDT Please see if we can expedite cardiology visit to LIA r/t SOB, weight gain, lower extremity swelling and recent abnormal echo finding. Patient is willing for invasive procedures if necessary. Thanks, Edmund Le PA-C [facility]-16-2024 History of Present illness Narrative* Lars Silva DO - 10/19/2023 4:00 PM EDT Reviewed DVT study with Cassidy. No evidence of DVT. Recommend follow up as scheduled with PCP and cardiology. documented in this encounterSelect Medical Specialty Hospital [facility]04-15-2024 History of Present illness Narrative* Marisol Cook [...] PATIENT PRESENTS WITH AN IMPLANTABLE OR ATTACHED OFFSET PRINTING OPERATOR: No RADIOLOGY DEPARTMENT: General X-ray: Exam(s) Completed: Chest X-Ray PERIPHERAL IV DATA: Not applicable SIGNED BY: RT Mario(R) October 18, 2023 2:28 PM documented in this encounterSelect Medical Specialty [facility]04-15-2024 Instructions* Patient Instructions* Doreen Le PA-C - [...] lab in 2 weeks. documented in this encounter[address]15-2024 History of Present illness Narrative* Doreen [...] aneurysm ([place] 0) Sss (sick sinus syndrome) ([facility]) Paroxysmal atrial fibrillation ([facility]) S/p placement of cardiac pacemaker (primary encounter diagnosis) Chronic combined systolic and diastolic chf (congestive heart failure) ([facility]) Dilated cardiomyopathy ([facility]) Ascending aorta dilatation [facility] H/o rheumatic heart disease History of prosthetic [...] Lymph 1.00 - 4.00 k/uL 2.82 2.73 Greenlee% % 13.0 10.2 Abs Greenlee <0.87 k/uL 1.10 (H) 0.79 Eosin% % [...] recent CT scans which were done in [facility]. 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 Lua PACEMAKER 10/2019 PART. HYSTERECTOMY W/WO RMVL OVARIES/TUBES 1974 h/o cervical cancer ovaries remain PAST SURGICAL HISTORY OF 1996 Aortic valve repair, Dr. Apodaca PAST SURGICAL HISTORY OF 2001 2001 and [address] Beltrán, [facility] PAST SURGICAL HISTORY OF 2016 [...] Colon Skin Cancer Pad (Peripheral Artery Disease) ([facility]) Pedro Aneurysm of Anterior Communicating [...] (primary diagnosis) 2. SSS (sick sinus syndrome) ([facility]) - ICD9: 427.81, ICD10: I49.5 3. Paroxysmal atrial fibrillation ([facility]) - ICD9: 427.31, ICD10: I48.0 4. S/P placement of cardiac pacemaker - ICD9: V45.01, ICD10: Z95.0 5. Chronic combined systolic and diastolic CHF (congestive heart failure) ([facility]) - ICD9: 428.42, 428.0, ICD10: I50.426. Dilated cardiomyopathy ([facility]) - ICD9: 425.4, ICD10: I42.0 7. Ascending aorta dilatation ([facility]) - ICD9: 447.71, ICD10: I77.810 8. History [...] medication Doreen Le PA-C documented in this encounterSelect Medical Specialty [facility]04-12-2024 Miscellaneous Notes* Telephone Encounter - Mckayla Albert [...] appointment in January 2024. Patient [place] [facility] [place] told her they are scheduling into April but if seen there she cannot be seen back in [place] location which is her preference. Patient is willing to travel to [facility] if she needs to. Please review and advise. Mckayla Albert LPN documented in this encounterSelect Medical Specialty [facility]04-11-2024 History of Present illness Narrative* Lars Silva DO - 10/14/2023 2:57 PM EDT Images from the original note were not included. [facility] [place] DEPARTMENT OF VASCULAR SURGERY OUTPATIENT VISIT DATE October 14, 2023 OUTPATIENT VISIT TYPE ESTABLISHED SERVICE DATE: 10/14/2023 SERVICE TIME: 2:58 PM PRIMARY CARE PHYSICIAN: Doreen Le PA-C HISTORY OF PRESENT ILLNESS: Ms. Sanches is a 78 year old female who presents today for a vascular surgery follow-up visit has noticed increased bilateral lower extremity edema especially in thighs. She recently returned home from [place]. She had duplex in [place] which was negative for DVT. 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 Lua PACEMAKER 10/2019 PART. HYSTERECTOMY W/WO RMVL OVARIES/TUBES 1974 h/o cervical cancer ovaries remain PAST SURGICAL HISTORY OF 1996 Aortic valve repair, Dr. Apodaca PAST SURGICAL HISTORY OF 2001 [address] Beltrán, [facility] PAST SURGICAL HISTORY OF 2015 [...] SIGNATURE: Lars Silva DO PATIENT NAME: Berta Snaches DATE: October 14, 2023 TIME: 2:58 PM documented in this encounterSelect Medical [facility]ty [facility]01-01-2024 History of Present illness Narrative* Bijan Cole [...] interactions). Bijan Cole MD documented in this encounterSelect Medical Specialty [facility]12-04-2023 Miscellaneous Notes* Telephone Encounter - Sheree Savage Ma - 06/07/2023 4:55 PM EST Patient stopped by office and picked up shoe. Small Squared toe post op shoe Sheree Savage Ma * Telephone Encounter - Sheree Savage Ma - 06/07/2023 1:49 PM EST Called pt and she will stop in office this afternoon to pick up worker post op shoe. Shereedieter Savage Ma * Telephone Encounter - Parsonjyoti Cordoba Uma - 06/07/2023 9:43 AM EST See response from pt. Uma Parson Ma documented in this encounterSelect Medical Specialty [facility]11-28-2023 History of Present illness Narrative* Marisol Cook [...] 01, 2023 2:31 PM documented in this encounterSelect Medical [facility]10-27-2023 History of Present illness Narrative* Mckayla Reed, [...] 30, 2023 1:48 PM documented in this encounterSelect Medical Special[facility]10-09-2023 History of Present illness Narrative* Marisol Cook [...] 12, 2023 10:32 AM documented in this encounterSelect Medical Specialty [facility]09-11-2023 Miscellaneous Notes* Telephone Encounter - Margoth Bolaños [...] and advise. Agueda Schulte documented in this encounterSelect Medical Specialty [facility]07-27-2023 Miscellaneous Notes* Telephone Encounter - Bushra Strauss - 01/28/2023 10:43 AM EDT Patient has been contacted and scheduled with Dr. Silva * Telephone Encounter - Sheree Savage Ma - 01/28/2023 9:55 AM EDT Pt viewed [employer] message. Please help pt set up consult. * Telephone Encounter - Doreen Le PA-C - 01/28/2023 6:33 AM EDT Please schedule: Telephone on 01/28/23 CONSULT TO VASCULAR SURGERY Pvd (peripheral vascular disease) with claudication (hcc) (primary encounter diagnosis) See Leftronichart regarding PVR resuts Edmund Alex PA-C documented in this encounterSelect Medical Specialty [facility]07-07-2023 Miscellaneous Notes* Telephone Encounter - Berta Keith - 01/08/2023 1:51 PM EDT Patient stated she will talk to Edmund at her April' appoitment.Berta Garcia Pss * Telephone Encounter - Sheree Savage Ma - 01/08/2023 9:34 AM EDT Images from the original note were not included. Doreen Le PA-C [facility] David Aldana Please assist patient to schedule outstanding CT chest WO to follow lung nodules if she is amenable Edmund Alex PA-C documented in this encounterSelect Medical [facility]07-06-2023 Instructions* Patient Instructions* Doreen Le PA-C - [...] due to heart conditions documented in this encounterSelect Medical Specialty [facility]07-06-2023 History of Present illness Narrative* Doreen Le PA-C - 01/07/2023 8:40 AM EDT 77 year old female with c/o here for routine follow up. Worst problem currently are legs. Has to get up and walk around. Drinks tonic water with quinine. Pain is excruciating. Severe pain. Not every night. Pedro Aneurysm Neurosurgeon Dr. Dianne Rogers, Susan Mtz GRAVEDIGGER 12/10/2022 MRA brain W/WO: Satisfactory appearance of [...] - 4.00 k/uL 2.05 2.22 1.81 2.82 Greenlee% % 12.7 12.3 12.6 13.0 Abs Greenlee <0.87 k/uL 0.93 (H) 1.06 (H) 0.74 [...] recent CT scans which were done in [facility]. 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 Lua PACEMAKER 10/2019 PART. HYSTERECTOMY W/WO RMVL OVARIES/TUBES 1974 h/o cervical cancer ovaries remain PAST SURGICAL HISTORY OF 1996 Aortic valve repair, Dr. Apodaca PAST SURGICAL HISTORY OF 2001 [address] Beltrán, [facility] PAST SURGICAL HISTORY OF 2015 [...] TABLET BY MOUTH TWICE A DAY 60 [id number] clopidogrel (PLAVIX) 75 mg tablet Take 1 [...] ARTERIES [facility] 2. Atherosclerosis of [place] artery of both lower extremities with intermittent [...] UR - HGB A1C documented in this encounterSelect Medical Specialty Hospital [facility]06-08-2023 NoteHNO ID: [id number] Author: RT Pranav(R) Service: Radiology Author Type: [...] BY: RT Pranav(R) December 10, 2022 1:06 [facility]04-04-2023 History of Present illness Narrative* Doreen Le PA-C - 10/06/2022 9:00 AM EDT 77 year old female with c/o here for follow up Pedro Aneurysm Neurosurgeon Dr. Dianne Rogers, Susan Mtz [facility] 12/07/2017 note: f/u MRA recommended 202012/02/2017 [...] - 4.00 k/uL 2.05 2.22 1.81 2.82 Greenlee% % 12.7 12.3 12.6 13.0 Abs Greenlee <0.87 k/uL 0.93 (H) 1.06 (H) 0.74 [...] recent CT scans which were done in [facility]. 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 Lua PACEMAKER 10/2019 PART. HYSTERECTOMY W/WO RMVL OVARIES/TUBES 1974 h/o cervical cancer ovaries remain PAST SURGICAL HISTORY OF 1996 Aortic valve repair, Dr. Apodaca PAST SURGICAL HISTORY OF 2001 [address] Beltrán, [facility] PAST SURGICAL HISTORY OF 2016 [...] Colon Skin Cancer Pad (Peripheral Artery Disease) ([facility]) Pedro Aneurysm of Anterior Communicating [...] TABLET BY MOUTH TWICE A DAY 60 [id number] clopidogrel (PLAVIX) 75 mg tablet Take 1 [...] (primary diagnosis) 2. SSS (sick sinus syndrome) ([facility]) - ICD9: 427.81, ICD10: I49.5 3. Chronic combined systolic and diastolic CHF (congestive heart failure) ([facility]) - ICD9: 428.42, 428.0, ICD10: I50.42 4. Dilated cardiomyopathy (HCC) - ICD9: 425.4, ICD10: I42.0 5. Ascending aorta dilatation ([facility]) - ICD9: 447.71, ICD10: I77.810 6. H/O [...] PANEL Doreen Le PA-C documented in this encounterSelect Medical Specialty [facility]04-03-2023 History of Present illness Narrative* Erin Lauren [...] 05, 2022 9:36 AM documented in this [facility]04-03-2023 Miscellaneous Notes* Result Encounter Note - Brayan Chicas MD - 10/05/2022 8:30 AM EDT Here are the test results.Keep follow up appointment to discuss the results. documented in this [facility]03-28-2023 Miscellaneous Notes* Telephone Encounter - Rachele Bee LPN - 09/29/2022 12:06 PM EDT Patient no longer followed by Dr. Lund. Rachele Bee LPN documented in this [facility]03-27-2023 Instructions* Patient Instructions* Carla Burdick MD - 09/28/2022 9:30 AM EDT We will repeat an echocardiogram in March Repeat fasting blood work documented in this encounterSelect Medical Specialty Hospital [facility]03-27-2023 History of Present illness Narrative* Carla Burdick MD - 09/28/2022 9:00 AM EDT Images from the original note were not included. [facility] SECTION [facility] REGIONAL CARDIOLOGY Cardiology ([facility]) [address] [facility] [id number] OUTPATIENT VISIT DATE 09/28/2022 PRIMARY CARE PHYSICIAN: Doreen Le [address] [place] [address] HISTORY OF PRESENT ILLNESS: Ms. 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 Lua PACEMAKER 10/2019 PART. HYSTERECTOMY W/WO RMVL OVARIES/TUBES 1973 h/o cervical cancer ovaries remain PAST SURGICAL HISTORY OF 1996 Aortic valve repair, Dr. Apodaca PAST SURGICAL HISTORY OF 2001 [address] Beltrán, [facility] PAST SURGICAL HISTORY OF 2016 [...] (FLUSH) INJECTION SYRINGE 3. Paroxysmal atrial fibrillation ([facility]) - ICD9: 427.31, ICD10: I48.0 Status post Watchman procedure. Patient has been maintained on low-dose aspirin. Repeat CBC is pending 4. Ascending aorta dilatation ([facility]) - ICD9: 447.71, ICD10: I77.810 5. Dilated cardiomyopathy ([facility]) - ICD9: 425.4, ICD10: I42.0 Patient maintained on Toprol and losartan. 6. Chronic combined systolic and diastolic CHF (congestive heart failure) ([facility]) - ICD9: 428.42, 428.0, ICD10: I50.42 Patient doing well on current diuretic therapy low-sodium diet 7. SSS (sick sinus syndrome) ([facility]) - ICD9: 427.81, ICD10: I49.5 8. S/P placement of cardiac pacemaker - ICD9: V45.01, ICD10: Z95.0 9. PAD (peripheral artery disease) ([facility]) - ICD9: 443.9, ICD10: I73.9 History of mild bilateral carotid artery disease. No symptoms for TIA or CVA. 10. Hyperlipidemia with target LDL less than 70 - ICD9: 272.4, ICD10: E78.5 Maintained on simvastatin 20 mg daily. Repeat fasting lipid panel - LIPID PANEL BASIC Carla Burdick MD documented in this encounterSelect Medical Specialty [facility]02-27-2023 Miscellaneous Notes* Telephone Encounter - Margoth Bolaños [...] 10/06/22 Margoth Bolaños MA documented in this encounterSelect Medical Specialty [facility]01-18-2023 Miscellaneous Notes* Telephone Encounter - Mars Xiao - 07/22/2022 12:54 PM EST Study explained/reviewed with patient. Study related follow-up requirements were discussed. Risks, benefits, alternatives, personnel, and costs of the study explained/reviewed. Patient provided informed consent for review by email. Study related questions were addressed. Provided patient with contact information to call. Mars Xiao documented in this encounterSelect Medical Specialty [facility]01-16-2023 Miscellaneous Notes* Telephone Encounter - Sheree Savage Ma - 07/20/2022 12:11 PM EST Faxed to [facility] at [phone] * Telephone Encounter - Sheree Savage Ma - 07/08/2022 12:45 PM EST Request sent to radiology * Telephone Encounter - Doreen Le PA-C - 07/08/2022 10:37 AM EST Please have 02/21/[address] IVC PE from [facility] imported and reviewed by radiologist for comparison with 03/19/2022 CT chest w IVCON PE. Not sure if this is the right order or even if needs order. Telephone on 07/08/22 CONSULT TO RADIOLOGY Edmund Alex PA-C documented in this encounterSelect Medical Specialty Hospital [facility]01-03-2023 History of Present illness Narrative* Doreen Le [...] 1.00 - 4.00 k/uL 2.05 2.22 1.81 Greenlee% % 12.7 12.3 12.6 Abs Greenlee <0.87 k/uL 0.93 (H) 1.06 (H) 0.74 [...] artery Neurosurgeon Dr. Dianne Rogers, Susan Mtz GRAVEDIGGER 12/07/2017 note: f/u MRA 202012/02/2017 MRA brain [...] gangrene, without long-term current use of insulin ([facility]) Current medications: none Taking medication as directed [...] recent CT scans which were done in [facility]. Anemia, blood loss As above CBC 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 Lua PACEMAKER 10/2019 PART. HYSTERECTOMY W/WO RMVL OVARIES/TUBES 1974 h/o cervical cancer ovaries remain PAST SURGICAL HISTORY OF 1996 Aortic valve repair, Dr. Apodaca PAST SURGICAL HISTORY OF 2001 [address] Beltrán, [facility] PAST SURGICAL HISTORY OF 2016 [...] Colon Skin Cancer Pad (Peripheral Artery Disease) ([facility]) Pedro Aneurysm of Anterior Communicating Artery Stage 3 Chronic Renal Impairment Associated With Type 2 Diabetes Mellitus ([facility]) History of Pulmonary Embolism Ascending Aorta Dilatation ([facility]) Chronic Bilateral Pleural Effusions Colovesical Fistula Right Renal Mass Diverticulitis Large Intestine W/O Perforation Or Abscess W/O Bleeding Renal Cell Carcinoma, Right ([facility]) Iron Deficiency Anemia Hypomagnesemia Gastrointestinal Hemorrhage Associated With Acute Gastritis Esophageal Stenosis Dilated Cardiomyopathy (Hcc) Chronic Systolic Congestive Heart Failure ([facility]) Sss (Sick Sinus Syndrome) ([facility]) Duodenal Ulcer Type 2 Diabetes Mellitus With Diabetic Peripheral Angiopathy Without Gangrene, Without Long-Term Current Use of Insulin ([facility]) Longstanding Persistent Atrial Fibrillation ([facility]) S/P Placement of Cardiac Pacemaker Ckd (Chronic Kidney Disease) Platelet Inhibition Due to Plavix Diverticulosis Lung Nodule, Solitary Red Blood Cell Antibody Positive Iron Deficiency Anemia Secondary to Inadequate Dietary Iron Intake Iron Malabsorption Chronic Renal Failure, Stage 3b ([facility]) Current Outpatient Medications Medication Sig [...] months Doreen Le PA-C documented in this encounterSelect Medical Specialty Hospital [facility]11-21-2022 Miscellaneous Notes* Telephone Encounter - Lizeth Du LPN - 05/25/2022 7:25 AM EST Refill not appropriate at this time, according to records there should be at least 2 refills available. documented in this encounterSelect Medical Specialty [facility]11-10-2022 History of Present illness Narrative* Sonny Lund MD - 05/14/2022 9:28 AM EST PATIENT NAME: Berta Sanches. CLINIC NO: [id number]. ATTENDING PHYSICIAN: Sonny Lund MD. DATE OF SERVICE:05/14/2022. DIAGNOSIS: Iron deficiency anemia HPI: This is a 76-year-old lady with history of atrial fibrillation, prosthetic aortic valve replacement and congestive heart failure who presented to [facility] recently for decompensated heartfailure and [...] Abs Lymph 1.00 - 4.00 k/uL 1.81 Greenlee% % 12.6 Abs Greenlee <0.87 k/uL 0.74 Eosin% % 2.2 Abs [...] Cc: Doreen Le PA-C documented in this encounterSelect Medical Specialty [facility]10-19-2022 Miscellaneous Notes* Telephone Encounter - Lizeth Mcknight [...] 06-08-2022. Lizeth Mcknight LPN documented in this encounterSelect Medical Specialty [facility]10-06-2022 Miscellaneous Notes* Telephone Encounter - Sheree Savage Ma - 04/09/2022 3:32 PM EDT Please schedule CT chest for 3 months. Thanks, Edmund Le PA-C documented in this encounterSelect Medical Specialty [facility]10-06-2022 History of Present illness Narrative* Brayan Chicas 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 Lua PACEMAKER 10/2019 PART. HYSTERECTOMY W/WO RMVL OVARIES/TUBES 1973 h/o cervical cancer ovaries remain PAST SURGICAL HISTORY OF 1996 Aortic valve repair, Dr. Apodaca PAST SURGICAL HISTORY OF 2001 [address] Beltrán, [facility] PAST SURGICAL HISTORY OF 2015 [...] 74 - 99 mg/dL Final Comment: The [place] Diabetes Association (ADA) provides guidance for cutoff [...] Standards of Medical Care in Diabetes 2016, [place] [employer]. Diabetes Care. 2016.39(Suppl 1). I [...] extrapolated by contextual derivation. documented in this encounterSelect Medical Specialty Hospital [facility]10-05-2022 Miscellaneous Notes* Telephone Encounter - Daysi Gray [...] infusions. Ralph Mujica DO documented in this encounterSelect Medical Specialty Hospital [facility]10-03-2022 Instructions* Patient Instructions* Doreen Le PA-C - [...] cup-Beef (cooked) 2 oz-Beet greens (cooked) 1/2 cup-[place] nuts 5 medium-Cereals 1 oz-Chicken (cooked) 3 [...] cup- Tongue 2 oz- Tuna 1/2 cup- [place] (cooked) 1 oz- Veal (cooked) 1 oz- Watermelon (6x11/2) 1 slice-Wheat Germ 2 tbsp. Iron supplements are absorbed best when taken between meals, with liquids other than milk, coffee, or tea. Taking them at bedtime often helps reduce the chance of nausea. If you can't tolerate daily, try at least three times a week. documented in this encounterSelect Medical [facility]ty [facility]10-03-2022 History of Present illness Narrative* Doreen Le PA-C - 04/06/2022 10:20 AM EDT 76 year old female with c/o here for follow hospital Not doing well Very SOB No stamina, very SOB. Mentioned iron infusions. Hospital discharge follow-up Facility [facility] Admission date 03/19/2022 Discharge date 03/22/2022 Pre-hospitalization details: See note 03/19/2022: CHF, EKG AF, hx GIB melena admitted 02/21-02/24/2022 [facility] 03/19/22 Sent from office to [facility]: VS 145/34-639-59-97.1F- 98% RA Exam + rales. 2/4+ pitting [...] Abs Lymph 1.00 - 4.00 k/uL 2.09 Greenlee% % 9.6 Abs Greenlee <0.87 k/uL 0.77 Eosin% % 1.9 Abs [...] deficiency anemia Hypomagnesemia SSS (sick sinus syndrome) ([facility]) Type 2 diabetes mellitus with diabetic peripheral angiopathy without gangrene, without long-term current use of insulin (HCC) Longstanding persistent atrial fibrillation ([facility]) S/P placement of cardiac pacemaker CKD (chronic [...] control presents having taken a trip to [place] and having had no control over the food served for the amount of salt in it and had progressive swelling in her legs and then subsequently shortness of breath developing. A right 2.5 cm superior pole the rightkidney mass was found concerning for neoplasm that had been noted as long ago as June 2019. On return to [facility], she had presented to the emergency [...] Review Reviewed by Walter Bates MD, Ph.D ([id number]) Protein, Total 6.3 - 8.0 g/dL 6.0 [...] 2 weeks for nephrology order is in customer leader FOLLOW-UP: GI in 2 days scheduled, lung nodule clinic to be scheduled, urology to be scheduled, and nephrology in 4 to 6 weeks to be scheduled LABS AND PROCEDURES PENDING AT DISCHARGE: No pending results. INCIDENTAL OR ACTIONABLE FINDING (Last Refresh: 03/22/2022 2:27 PM) Test(s): CT CHEST W IVCON PE FOLLOW-UP APPOINTMENTS ALREADY SCHEDULED WITH A [facility] PROVIDER: Future Appointments Date Time Provider Department Center 03/30/2022 8:40 AM MD [facility]ard 04/14/2022 10:00 AM Albin Gu APRN.CNP [facility] ALLERGIES ALLERGIES Allergen Reactions Protamine Anaphylaxis 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 Lua PACEMAKER 10/2019 PART. HYSTERECTOMY W/WO RMVL OVARIES/TUBES 1974 h/o cervical cancer ovaries remain PAST SURGICAL HISTORY OF 1996 Aortic valve repair, Dr. Apodaca PAST SURGICAL HISTORY OF 2001 [address] Beltrán, [facility] PAST SURGICAL HISTORY OF 2015 [...] X (OR/PROCEDURE) PRN Randy Gustafson MD [address] [place] at 03/03/22 1149 fentaNYL 50 mcg/mL injection [...] ICD10: I49.5 6. Atrial fibrillation, unspecified type ([facility]) - ICD9: 427.31, ICD10: I48.91 7. Presence [...] comparison. Doreen Le PA-C documented in this encounterSelect Medical Specialty [facility]09-26-2022 Miscellaneous Notes* Telephone Encounter - Sigifredo Rivera [...] Thanks, Edmund Le PA-C documented in this [facility]09-26-2022 Instructions* Patient Instructions* Carla Burdick MD - 03/30/2022 9:13 AM EDT We are increasing the Toprol (Metoprolol succinate) to 50 mg two times per day We are replacing the Lisinopril with Losartan 25 mg once per day Repeat blood work 7-10 days after starting the Losartan documented in this [facility]09-26-2022 History of Present illness Narrative* Carla Burdick MD - 03/30/2022 8:40 AM EDT Images from the original note were not included. [facility] VASC[facility]STITUTE SECTION OF REGIONAL CARDIOLOGY Cardiology ([facility]) [address] [facility] [id number] OUTPATIENT VISIT DATE 03/30/2022 PRIMARY CARE PHYSICIAN: Doreen Le [address] [place] [address] HISTORY OF PRESENT ILLNESS: Ms. Sanches is a 76 year old woman with a history of remote aortic valve replacement with homograft in 1996 and possible repair of the ascending aorta, hypertension, dyslipidemia, atrial fibrillation with history of pulmonary vein isolation procedures, pacemaker placement recent watchman procedurewho presents for follow-up after hospital admission for congestive heart failure. She had gone on acruise to [place] and developed lower extremity edema and worsening shortness of breath. On return to [place], she had worsening symptoms of weight gain, PND, and orthopnea symptoms. She was seen at [facility] and was treated for acute 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 Lua PACEMAKER 10/2019 PART. HYSTERECTOMY W/WO RMVL OVARIES/TUBES 1974 h/o cervical cancer ovaries remain PAST SURGICAL HISTORY OF 1996 Aortic valve repair, Dr. Apodaca PAST SURGICAL HISTORY OF 2001 [address] Beltrán, [facility] PAST SURGICAL HISTORY OF 2015 [...] - Exam was compared with the prior [facility] echocardiographic exam performed on 01/12/2022. 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 Carla Burdick MD documented in this encounterSelect Medical [facility]09-17-2022 Miscellaneous Notes* Telephone Encounter - Juan Diego Carroll Jr., MD - 03/21/2022 10:51 AM EDT [facility] consult Needs appt with [facility] in [place] * Telephone Encounter - Juan Diego Carroll Jr., MD - 03/21/2022 10:51 AM EDT ----- Message from Huy Chauhan MD sent at 03/21/2022 9:11 AM EDT ----- Regarding: Renal mass Thank you Mike. Son documented in this encounterSelect Medical Specialty [facility]09-16-2022 History of Present illness Narrative* Sheridan Cervantes RN - 03/20/2022 8:22 AM EDT TRANSITION CARE MANAGEMENT (TCM) FOLLOW-UP NOTE Provider Action/FYI Chart reviewed. TCM removed name from TEAMS due to [facility] admission 03/19/22 chf. TCM follow up pending hospital discharge disposition. Summary: Pt discharged from [facility] on 02/[facility]. Admitted for: GI bleeding diverticular bleed/acute blood loss anemia Leasing Agent plan for next outreach: No further follow up needed at this time Signature Sheridan Cervantes RN March 20, 2022 documented in this encounterSelect Medical Specialty [facility]09-15-2022 History of Past illness Narrative* Problem Noted [...] get beds in local hospital, transferred to [facility]. 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 Patient had her eyes examined in [place] this year and was told that she [...] of this encounter (statuses as of 03/23/2022) [facility] History of Past illness Narrative* Problem Noted [...] get beds in local hospital, transferred to [facility]. Anemia due to GI blood loss [...] 12/22/2018 Prosthetic aortic valve stenosis 11/19/2016 12/22/2018 intermediate current use of antiarrhythmic medical therapy [...] diarrhea. Patient had her eyes examined in [place] this year and was told that she [...] of this encounter (statuses as of 03/28/2022) [facility] History of Past illness Narrative* Problem Noted [...] get beds in local hospital, transferred to [facility]. Anemia due to GI blood loss [...] 12/22/2018 Prosthetic aortic valve stenosis 11/19/2016 12/22/2018 intermediate current use of antiarrhythmic medical therapy [...] diarrhea. Patient had her eyes examined in [place] this year and was told that she [...] of this encounter (statuses as of 03/30/2022) [facility] History of Past illness Narrative* Problem Noted [...] get beds in local hospital, transferred to [facility]. 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 Patient had her eyes examined in [place] this year and was told that she [...] of this encounter (statuses as of 03/30/2022) [facility] History of Past illness Narrative* Problem Noted [...] get beds in local hospital, transferred to [facility]. Anemia due to GI blood loss [...] 12/22/2018 Prosthetic aortic valve stenosis 11/19/2016 12/22/2018 intermediate current use of antiarrhythmic medical therapy [...] diarrhea. Patient had her eyes examined in [place] this year and was told that she [...] of this encounter (statuses as of 04/06/2022) [facility] History of Past illness Narrative* Problem Noted [...] get beds in local hospital, transferred to [facility]. 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 Patient had her eyes examined in [place] this year and was told that she [...] of this encounter (statuses as of 04/07/2022) [facility] History of Past illness Narrative* Problem Noted [...] get beds in local hospital, transferred to [facility]. Anemia due to GI blood loss [...] 12/22/2018 Prosthetic aortic valve stenosis 11/19/2016 12/22/2018 intermediate current use of antiarrhythmic medical therapy [...] diarrhea. Patient had her eyes examined in [place] this year and was told that she [...] of this encounter (statuses as of 04/08/2022) [facility] History of Past illness Narrative* Problem Noted [...] get beds in local hospital, transferred to [facility]. Anemia due to GI blood loss [...] 12/22/2018 Prosthetic aortic valve stenosis 11/19/2016 12/22/2018 intermediate current use of antiarrhythmic medical therapy [...] diarrhea. Patient had her eyes examined in [place] this year and was told that she [...] of this encounter (statuses as of 04/09/2022) [facility] History of Past illness Narrative* Problem Noted [...] get beds in local hospital, transferred to [facility]. 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 Patient had her eyes examined in [place] this year and was told that she [...] of this encounter (statuses as of 04/17/2022) [facility] History of Past illness Narrative* Problem Noted [...] get beds in local hospital, transferred to [facility]. Anemia due to GI blood loss [...] 12/22/2018 Prosthetic aortic valve stenosis 11/19/2016 12/22/2018 intermediate current use of antiarrhythmic medical therapy [...] diarrhea. Patient had her eyes examined in [place] this year and was told that she [...] of this encounter (statuses as of 04/20/2022) [facility] History of Past illness Narrative* Problem Noted [...] get beds in local hospital, transferred to [facility]. Anemia due to GI blood loss [...] 12/22/2018 Prosthetic aortic valve stenosis 11/19/2016 12/22/2018 intermediate current use of antiarrhythmic medical therapy [...] diarrhea. Patient had her eyes examined in [place] this year and was told that she [...] of this encounter (statuses as of 04/22/2022) [facility] History of Past illness Narrative* Problem Noted [...] get beds in local hospital, transferred to [facility]. Anemia due to GI blood loss [...] 12/22/2018 Prosthetic aortic valve stenosis 11/19/2016 12/22/2018 intermediate current use of antiarrhythmic medical therapy [...] diarrhea. Patient had her eyes examined in [place] this year and was told that she [...] of this encounter (statuses as of 04/23/2022) [facility] History of Past illness Narrative* Problem Noted [...] get beds in local hospital, transferred to [facility]. 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 Patient had her eyes examined in [place] this year and was told that she [...] of this encounter (statuses as of 04/28/2022) [facility] History of Past illness Narrative* Problem Noted [...] get beds in local hospital, transferred to [facility]. 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 Patient had her eyes examined in [place] this year and was told that she [...] of this encounter (statuses as of 05/15/2022) [facility] History of Past illness Narrative* Problem Noted [...] get beds in local hospital, transferred to [facility]. 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 Patient had her eyes examined in [place] this year and was told that she [...] of this encounter (statuses as of 05/25/2022) [facility] History of Past illness Narrative* Problem Noted [...] get beds in local hospital, transferred to [facility]. 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 Patient had her eyes examined in [place] this year and was told that she [...] of this encounter (statuses as of 05/29/2022) [facility] History of Past illness Narrative* Problem Noted [...] get beds in local hospital, transferred to [facility]. Anemia due to GI blood loss [...] 12/22/2018 Prosthetic aortic valve stenosis 11/19/2016 12/22/2018 intermediate current use of antiarrhythmic medical therapy [...] diarrhea. Patient had her eyes examined in [place] this year and was told that she [...] of this encounter (statuses as of 07/06/2022) [facility] History of Past illness Narrative* Problem Noted [...] get beds in local hospital, transferred to [facility]. Anemia due to GI blood loss [...] 12/22/2018 Prosthetic aortic valve stenosis 11/19/2016 12/22/2018 intermediate current use of antiarrhythmic medical therapy [...] diarrhea. Patient had her eyes examined in [place] this year and was told that she [...] of this encounter (statuses as of 07/09/2022) [facility] History of Past illness Narrative* Problem Noted [...] get beds in local hospital, transferred to [facility]. Anemia due to GI blood loss [...] 12/22/2018 Prosthetic aortic valve stenosis 11/19/2016 12/22/2018 intermediate current use of antiarrhythmic medical therapy [...] diarrhea. Patient had her eyes examined in [place] this year and was told that she [...] of this encounter (statuses as of 07/22/2022) [facility] History of Past illness Narrative* Problem Noted [...] get beds in local hospital, transferred to [facility]. Anemia due to GI blood loss [...] 12/22/2018 Prosthetic aortic valve stenosis 11/19/2016 12/22/2018 intermediate current use of antiarrhythmic medical therapy [...] diarrhea. Patient had her eyes examined in [place] this year and was told that she [...] of this encounter (statuses as of 07/22/2022) [facility] History of Past illness Narrative* Problem Noted [...] get beds in local hospital, transferred to [facility]. Anemia due to GI blood loss [...] 12/22/2018 Prosthetic aortic valve stenosis 11/19/2016 12/22/2018 intermediate current use of antiarrhythmic medical therapy [...] diarrhea. Patient had her eyes examined in [place] this year and was told that she [...] of this encounter (statuses as of 09/01/2022) [facility] History of Past illness Narrative* Problem Noted [...] get beds in local hospital, transferred to [facility]. Anemia due to GI blood loss [...] 12/22/2018 Prosthetic aortic valve stenosis 11/19/2016 12/22/2018 intermediate current use of antiarrhythmic medical therapy [...] diarrhea. Patient had her eyes examined in [place] this year and was told that she [...] of this encounter (statuses as of 09/27/2022) [facility] History of Past illness Narrative* Problem Noted [...] get beds in local hospital, transferred to [facility]. 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 Patient had her eyes examined in [place] this year and was told that she [...] of this encounter (statuses as of 09/28/2022) [facility] History of Past illness Narrative* Problem Noted [...] get beds in local hospital, transferred to [facility]. 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 Patient had her eyes examined in [place] this year and was told that she [...] of this encounter (statuses as of 09/29/2022) [facility] History of Past illness Narrative* Problem Noted [...] get beds in local hospital, transferred to [facility]. Anemia due to GI blood loss [...] 12/22/2018 Prosthetic aortic valve stenosis 11/19/2016 12/22/2018 intermediate current use of antiarrhythmic medical therapy [...] diarrhea. Patient had her eyes examined in [place] this year and was told that she [...] of this encounter (statuses as of 10/07/2022) [facility] History of Past illness Narrative* Problem Noted [...] get beds in local hospital, transferred to [facility]. 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 Patient had her eyes examined in [place] this year and was told that she [...] of this encounter (statuses as of 12/29/2022) [facility] History of Past illness Narrative* Problem Noted [...] get beds in local hospital, transferred to [facility]. Anemia due to GI blood loss [...] 12/22/2018 Prosthetic aortic valve stenosis 11/19/2016 12/22/2018 intermediate current use of ant iarrhythmic medical [...] diarrhea. Patient had her eyes examined in [place] this year and was told that she [...] of this encounter (statuses as of 01/09/2023) [facility] History of Past illness Narrative* Problem Noted [...] get beds in local hospital, transferred to [facility]. 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 Patient had her eyes examined in [place] this year and was told that she [...] of this encounter (statuses as of 01/28/2023) [facility] History of Past illness Narrative* Problem Noted [...] get beds in local hospital, transferred to [facility]. 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 Patient had her eyes examined in [place] this year and was told that she [...] of this encounter (statuses as of 03/15/2023) [facility] History of Past illness Narrative* Problem Noted [...] get beds in local hospital, transferred to [facility]. 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 Patient had her eyes examined in [place] this year and was told that she [...] of this encounter (statuses as of 03/28/2023) [facility] History of Past illness Narrative* Problem Noted [...] get beds in local hospital, transferred to [facility]. Anemia due to GI blood loss [...] 12/22/2018 Prosthetic aortic valve stenosis 11/19/2016 12/22/2018 intermediate current use of ant iarrhythmic medical [...] diarrhea. Patient had her eyes examined in [place] this year and was told that she [...] of this encounter (statuses as of 05/07/2023) [facility] History of Past illness Narrative* Problem Noted [...] get beds in local hospital, transferred to [facility]. Anemia due to GI blood loss [...] 12/22/2018 Prosthetic aortic valve stenosis 11/19/2016 12/22/2018 intermediate current use of ant iarrhythmic medical [...] diarrhea. Patient had her eyes examined in [place] this year and was told that she [...] of this encounter (statuses as of 05/07/2023) [facility] History of Past illness Narrative* Problem Noted [...] get beds in local hospital, transferred to [facility]. 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 Patient had her eyes examined in [place] this year and was told that she [...] of this encounter (statuses as of 05/21/2023) [facility] History of Past illness Narrative* Problem Noted [...] get beds in local hospital, transferred to [facility]. 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 Patient had her eyes examined in [place] this year and was told that she [...] of this encounter (statuses as of 06/08/2023) [facility] History of Past illness Narrative* Problem Noted [...] get beds in local hospital, transferred to [facility]. 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 Patient had her eyes examined in [place] this year and was told that she [...] of this encounter (statuses as of 07/05/2023) [facility] History of Past illness Narrative* Problem Noted [...] get beds in local hospital, transferred to [facility]. Anemia due to GI blood loss [...] 12/22/2018 Prosthetic aortic valve stenosis 11/19/2016 12/22/2018 intermediate current use of ant iarrhythmic medical [...] diarrhea. Patient had her eyes examined in [place] this year and was told that she [...] of this encounter (statuses as of 10/15/2023) [facility] History of Past illness Narrative* Problem Noted [...] get beds in local hospital, transferred to [facility]. Anemia due to GI blood loss [...] 12/22/2018 Prosthetic aortic valve stenosis 11/19/2016 12/22/2018 intermediate current use of ant iarrhythmic medical [...] diarrhea. Patient had her eyes examined in [place] this year and was told that she [...] of this encounter (statuses as of 10/16/2023) [facility] History of Past illness Narrative* Problem Noted [...] get beds in local hospital, transferred to [facility]. Anemia due to GI blood loss [...] 12/22/2018 Prosthetic aortic valve stenosis 11/19/2016 12/22/2018 intermediate current use of ant iarrhythmic medical [...] diarrhea. Patient had her eyes examined in [place] this year and was told that she [...] of this encounter (statuses as of 10/21/2023) [facility] History of Present illness Narrative* M Claudia Le PA-C - 03/19/2022 10:40 AM EDT 76 year old female with extensive hx AF, CHF, HTN, S/P aortic valve replacemet, s/p Watchman procedure recently off coumadin c/o leg swelling bilaterally over last 4-5 days. Flew home from [place] last night. Did get up and walk several times during flight. . SOB x 4-5 days, can hardly go more than 10-15 steps without resting. No chest pain. Feels heart racing at times. No syncopal sx. Feels leg are warm, heavy No pain. Got back from [place] 2am this morning Able to lay supine. 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 Lua PACEMAKER 10/2019 PART. HYSTERECTOMY W/WO RMVL OVARIES/TUBES 1974 h/o cervical cancer ovaries remain PAST SURGICAL HISTORY OF 1996 Aortic valve repair, Dr. Apodaca PAST SURGICAL HISTORY OF 2001 [address] Beltrán, [facility] PAST SURGICAL HISTORY OF 2015 [...] (TOPEX) X (OR/PROCEDURE) PRSondra Gustafson MD [address] [place] at 03/03/22 1149 fentaNYL 50 mcg/mL injection [...] <130/80 Doreen Le PA-C [facility] History of Present illness Narrative* Sheridan Cervantes RN - 03/05/2022 12:39 PM EDT TRANSITION CARE MANAGEMENT (TCM) FOLLOW-UP NOTE Provider Action/I Chart reviewed, TCM follow up call deferred due to 03/03 office visit with JASPREET Torres. Summary: Pt discharged from [facility] on 02/24. 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: Will follow up Signature Sheridan Cervantes RN March 05, 2022 documented in this [facility] Miscellaneous Notes* Addendum Note - Radha Torres APRN.CNP - 03/04/2022 10:54 AM EDTAddended by: RADHA TORRES on: 03/04/2022 10:54 AM Modules accepted: Orders, SmartSet * Addendum Note - Radha Torres APRN.CNP - 03/04/2022 9:46 AM EDTAddended by: RADHA TORRES on: 03/04/2022 09:46 AM Modules accepted: Orders documented in this encounterSelect [facility] History of Present illness Narrative* Radha Torres APRN.CNP - 03/03/2022 12:00 PM EDT Images from the original note were not included. [facility] [place] [facility] Department of Cardiovascular Medicine SECTION OF CARDIAC PACING and ELECTROPHYSIOLOGY OUTPATIENT VISIT DATE March 03, 2022 OUTPATIENT VISIT TYPE ESTABLISHED PRIMARY CARE PHYSICIAN: Doreen Le [address] [place] [address] CHIEF COMPLAINT: Post Watchman follow up HISTORY [...] upper and lower endoscopy were non diagnostic. 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 Lua PACEMAKER 10/2019 PART. HYSTERECTOMY W/WO RMVL OVARIES/TUBES 1974 h/o cervical cancer ovaries remain PAST SURGICAL HISTORY OF 1996 Aortic valve repair, Dr. Apodaca PAST SURGICAL HISTORY OF 2001 [address] Beltrán, [facility] PAST SURGICAL HISTORY OF 2015 [...] yearly in-clinic device checks. Ying Hart RN [place] to Dr. Fay in Dr. Gomez's absence [...] assess as well. - The following is workforce services representative of measurements of LAXMI dimensions from [...] FOR LVH, MAY BE NORMAL VARIANT ( [employer] product ) ABNORMAL ECG ABDIEL: CONCLUSIONS: - [...] upper and lower endoscopy were non diagnostic. [id number] score: 7 (congestive heart failure, hypertension, age [...] INFORMATION: Radha Torres APRN.CNP documented in this encounterSelect [facility] Nurse Note* Alexandre Avalos RN - 03/03/2022 [...] RN In Department: CARDIOLOGY documented in this encounterSelect [facility] Miscellaneous Notes* Telephone Encounter - Saima [place] [...] In Department of CARDIOLOGY. documented in this encounterSelect [facility] History of Present illness Narrative* Harika Tomas RN - 02/25/2022 2:27 PM EDT TCM Home Visit Referral Source of Stratification: [facility] Admission Status: Discharged Readmission Risk Score: [...] PROGRAM Provider Action/FYI: SUMMARY: Pt discharged from [facility] on 02/24. Admitted for: PRINCIPAL DIAGNOSIS: GI bleeding diverticular bleed/acute blood loss anemia Contact made with patient: No - 2nd unsuccessful attempt - end outreach and close encounter Outreach ended Harika Tomas RN BSN [facility] [phone] * Harika Tomas RN - 02/25/2022 10:14 AM EDT TCM Home Visit Referral Source of Stratification: [facility] Admission Status: Discharged Readmission Risk Score: [...] today or tomorrow SUMMARY: Pt discharged from [facility] on 02/24. Admitted for: PRINCIPAL DIAGNOSIS: GI bleeding diverticular bleed/acute blood loss anemia Contact made with patient: No - next outreach attempt will be on next day Outreach ended Harika Tomas RN BSN [facility] [phone] documented in this encounterSelect [facility] History of Past illness Narrative* Problem Noted [...] get beds in local hospital, transferred to [facility]. 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 Patient had [place] eyes examined in [place] this year and was told that she [...] of this encounter (statuses as of 02/25/2022) [facility] History of Past illness Narrative* Problem Noted [...] get beds in local hospital, transferred to [facility]. 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 Patient had her eyes examined in [place] this year and was told that she [...] of this encounter (statuses as of 03/02/2022) [facility] History of Past illness Narrative* Problem Noted [...] get beds in local hospital, transferred to [facility]. Anemia 10/24/2019 09/12/2021 Last Assessment & [...] 12/22/2018 Prosthetic aortic valve stenosis 11/19/2016 12/22/2018 intermediate current use of antiarrhythmic medical therapy [...] diarrhea. Patient had her eyes examined in [place] this year and was told that she [...] of this encounter (statuses as of 03/03/2022) [facility] History of Past illness Narrative* Problem Noted [...] get beds in local hospital, transferred to [facility]. Anemia 10/24/2019 09/12/2021 Last Assessment & [...] 12/22/2018 Prosthetic aortic valve stenosis 11/19/2016 12/22/2018 intermediate current use of antiarrhythmic medical therapy [...] diarrhea. Patient had her eyes examined in [place] this year and was told that she [...] of this encounter (statuses as of 03/04/2022) [facility] History of Past illness Narrative* Problem Noted [...] get beds in local hospital, transferred to [facility]. Anemia 10/24/2019 09/12/2021 Last Assessment & [...] 12/22/2018 Prosthetic aortic valve stenosis 11/19/2016 12/22/2018 intermediate current use of antiarrhythmic medical therapy [...] diarrhea. Patient had her eyes examined in [place] this year and was told that she [...] of this encounter (statuses as of 03/05/2022) [facility] History of Past illness Narrative* Problem Noted [...] get beds in local hospital, transferred to [facility]. Anemia 10/24/2019 09/12/2021 Last Assessment & [...] 12/22/2018 Prosthetic aortic valve stenosis 11/19/2016 12/22/2018 intermediate current use of antiarrhythmic medical therapy [...] diarrhea. Patient had her eyes examined in [place] this year and was told that she [...] of this encounter (statuses as of 03/11/2022) [facility] History of Past illness Narrative* Problem Noted [...] get beds in local hospital, transferred to [facility]. Anemia 10/24/2019 09/12/2021 Last Assessment & [...] 12/22/2018 Prosthetic aortic valve stenosis 11/19/2016 12/22/2018 intermediate current use of antiarrhythmic medical therapy [...] diarrhea. Patient had her eyes examined in [place] this year and was told that she [...] of this encounter (statuses as of 03/20/2022) [facility] History of Past illness Narrative* Problem Noted [...] get beds in local hospital, transferred to [facility]. 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 Patient had her eyes examined in [place] this year and was told that she [...] of this encounter (statuses as of 03/20/2022) [facility] History of Past illness Narrative* Problem Noted [...] get beds in local hospital, transferred to [facility]. Renal cell carcinoma 10/24/2019 09/12/2021 Last [...] 12/22/2018 Prosthetic aortic valve stenosis 11/19/2016 12/22/2018 intermediate current use of antiarrhythmic medical therapy [...] diarrhea. Patient had her eyes examined in [place] this year and was told that she [...] of this encounter (statuses as of 03/21/2022) [facility] Miscellaneous Notes* Telephone Encounter - Rojelio Jamison [...] testing. Giovanna Powell RN documented in this encounterSelect [facility] History of Present illness Narrative* Doreen Le [...] anxious about potential risk of having to iPrinte with family. 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 Lua PACEMAKER 10/2019 PART. HYSTERECTOMY W/WO RMVL OVARIES/TUBES 1973 h/o cervical cancer ovaries remain PAST SURGICAL HISTORY OF 1996 Aortic valve repair, Dr. Apodaca PAST SURGICAL HISTORY OF 2001 [address] Beltrán, [facility] PAST SURGICAL HISTORY OF 2016 [...] PNL Doreen Le PA-C documented in this encounterSelect [facility] Miscellaneous Notes* Telephone Encounter - Deonna Manny - 01/21/2022 10:30 AM EDT January 21, 2022 Patient Contact Number: [phone] (home) [phone] (cell) Patient last seen within the last year: Yes Reason for Call: Patient called to schedule follow up from Watchman procedure. Order for ABDIEL needs to be placed (can be done by FOUNDRY WORKER) and patient should contact office as soon as ABDIEL is done so it can be reviewed (should be done 45 days after the procedure). FOUNDRY WORKER: Please place Order for ABDIEL. Admin to request ABDIEL for after 02/26/2022 but before 03/07/2022. Thank you, Deonna Bryant, Marisol documented in this encounter[facility] Miscellaneous Notes* Telephone Encounter - Ivory Carrion Adm - 01/19/2022 11:05 AM EDT Call from pharmacy requesting refill. Pending Prescriptions Disp Refills ASPIRIN 81 MG CHEWABLE TABLET 90 tablet 3 Sig: Take 1 tablet by mouth once daily. BRAYAN: No Patient last seen 01/09/2022 Ivory Rossishirley Adm documented in this encounterSelect [facility] Instructions* Patient Instructions* Doreen Le PA-C - [...] keep your stress under control. Published by [employer]. This content is reviewed periodically and is subject to change as new health information becomes available. The information is intended to inform and educate and is not a replacement for medical evaluation, advice, diagnosis or treatment by a healthcare professional. Developed by [employer]. Copyright 2005 [employer] and/or one of its subsidiaries. All Rights Reserved. 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 Lua PACEMAKER 10/2019 PART. HYSTERECTOMY W/WO RMVL OVARIES/TUBES 1973 h/o cervical cancer ovaries remain PAST SURGICAL HISTORY OF 1996 Aortic valve repair, Dr. Apodaca PAST SURGICAL HISTORY OF 2001 [address] 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 ([facility]) History of Pulmonary Embolism Ascending Aorta Dilatation (Hcc) Chronic Bilateral Pleural Effusions Colovesical Fistula Renal Mass, Right Diverticulitis Large Intestine W/O Perforation Or Abscess W/O Bleeding Renal Cell Carcinoma, Right (Hcc) Iron Deficiency Anemia Hypomagnesemia Gastrointestinal Hemorrhage Associated With Acute Gastritis Esophageal Stenosis Dilated Cardiomyopathy (Hcc) Chronic Diastolic Congestive Heart Failure (Hcc) Sss (Sick Sinus Syndrome) ([facility]) Duodenal Ulcer Type 2 Diabetes Mellitus With Diabetic Peripheral Angiopathy Without Gangrene, Without Long-Term Current Use of Insulin (Hcc) Atrial Fibrillation ([facility]) Current Outpatient Medications Medication Sig [...] Resp 16 Wt 64.4 kg (142 lb) [id number]% BMI 25.15 kg/m Pleasant frail adult womanin [...] OINTMENT Doreen Le PA-C documented in this encounterSelect [facility] History of Present illness Narrative* Diane Blanchard [...] discussed with Physician, nurse practitioner or Physician blood donor unit assistant upon discharge Instructions for transmitting EKG to Monitoring Center 3 month follow up instructions Contact number for information and questions Patient Evaluation: Verbalizes understanding Follow Up Plan: Follow up as directed by MD. Supplemental Material Given: Written Material Patient education regarding radiation exposure. Instructed By Diane Blanchard RN. In Department of CARDIOLOGY. documented in this encounterSelect [facility] Instructions* Patient Instructions* Emilia Diallo MD - 01/09/2022 2:19 PM EDT Proceed with your Watchman evaluation. Consider discussing a hematology evaluation in addition to further GI work up as appropriate. Follow up with Dr. Burdick as planned. Follow up with PCP re: prevention in addition to follow up of the kidney mass that was identified on the CT. documented in this encounterSelect [facility]22 History of Present illness Narrative* Emilia Diallo MD - 01/09/2022 2:15 PM EDT Images from the original note were not included. [facility] Department of Cardiovascular Medicine SECTION OF CLINICAL CARDIOLOGY OUTPATIENT VISIT DATE January 09, 2022 OUTPATIENT VISIT TYPE CON PRIMARY CARE PHYSICIAN: Doreen Le [address] [place] [address] REFERRING PHYSICIAN: Chandler Swan [address] [facility] [id number] CHIEF COMPLAINT: Shared decision making for Watchman [...] 7.7. Received 2 unit(s) PRBCs last week. [id number] score: 7 (congestive heart failure, hypertension, age >/=75, diabetes, vascular disease, female) - on Xarelto 15 mg HASBLED score: 4 (HTN, CKD, bleeding, elderly) She complains of chronic shortness of breath and fatigue. She denies chest pain, orthopnea, cough, edema, palpitations, PND, lightheadedness or syncope. Nursing Intake : Ms. 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 Lua 10/2019: PACEMAKER 1974: PART. HYSTERECTOMY W/WO RMVL OVARIES/TUBES Comment: h/o cervical cancer ovaries remain 1996: PAST SURGICAL HISTORY OF Comment: Aortic valve repair, Dr. Apodaca 2001: PAST SURGICAL HISTORY OF Comment: [address] Beltrán, [facility] 2016: PAST SURGICAL HISTORY OF [...] Abs Lymph 1.00 - 4.00 k/uL 1.82 Greenlee% % 14.0 Abs Greenlee <0.87 k/uL 1.27 (H) Eosin% % 1.9 [...] etiology while on Xarelto. Unknown etiology. Her [id number] is elevated at 7 portenidng an increased risk of CVA and her HASBLED score is elevated. It is reasonable to consider Watchman procedure as after undergoing a LAXMI closure procedure, she will not need residential anticoagulation which eliminates anticoagulation side effects and major bleeding risk. After today's visit with Mrs. Sanches, which was dedicated solely for shared decision making visitregarding LAXMI closure device, she decided to proceed with the LAXMI appendage closure procedure scheduled to be [facility] the [facility]. Of note, she should continue with her [...] With best wishes and warmest personal regards, mEilia Diallo MD January 09, 2022, 5:59 PM documented in this encounterSelect [facility]22 History and physical note * Chai Encinas [...] likely gallbladder issues. 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 Lua PACEMAKER 10/2019 PART. HYSTERECTOMY W/WO RMVL OVARIES/TUBES 1974 h/o cervical cancer ovaries remain PAST SURGICAL HISTORY OF 1996 Aortic valve repair, Dr. Apodaca PAST SURGICAL HISTORY OF 2001 [address] and [address] Beltrán, [facility] PAST SURGICAL HISTORY OF 2015 [...] entered by the nurse and reviewed by ut Nursing Notes: Stacie Mancera LPN 01/01/2022 9:48 [...] her for urgent upper endoscopy tomorrow in [place]. Diagnoses: (D50.0) Anemia, blood loss (primary encounter [...] needed. Chai Encinas MD documented in this encounterSelect [facility]-2022 Miscellaneous Notes* Telephone Encounter - Yessenia Mabel - 01/01/2022 10:27 AM EDT 01-02-2022 egd reyes documented in this encounterSelect [facility]-2022 History of Present illness Narrative* Chai Encinas [...] likely gallbladder issues. 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 Lua PACEMAKER 10/2019 PART. HYSTERECTOMY W/WO RMVL OVARIES/TUBES 1974 h/o cervical cancer ovaries remain PAST SURGICAL HISTORY OF 1996 Aortic valve repair, Dr. Apodaca PAST SURGICAL HISTORY OF 2001 [address] Beltrán, [facility] PAST SURGICAL HISTORY OF 2015 [...] entered by the nurse and reviewed by ut Nursing Notes: Stacie Mancera LPN 01/01/2022 9:48 [...] her for urgent upper endoscopy tomorrow in [place]. Diagnoses: (D50.0) Anemia, blood loss (primary encounter [...] needed. Chai Encinas MD documented in this encounterSelect [facility]-2022 Nurse Note* Stacie FiordalizaGOPI - 01/01/2022 9:46 [...] 2019 Stacie Mancera LPN documented in this encounterSelect [facility]-27-2022 Miscellaneous Notes* Telephone Encounter - M Claudia Le PA-C - 12/29/2021 4:19 PM EDT Thanks for the help! Doreen Le PA-C * Telephone Encounter - Sheree Savage Ma - 12/29/2021 3:57 PM EDT Patient is scheduled for for transfusion of 2 units packed red blood cells at [facility] for 8 am tomorrow. Patient has been notified and will stop by tonight to get type and cross. documented in this encounterSelect [facility]-2022 Miscellaneous Notes* Telephone Encounter - Sheree Savage [...] couple of days she will go to [facility] ED. Reason for Disposition [1] [...] since yesterday. Protocols used: WEAKNESS (GENERALIZED) AND [id number] documented in this encounterSelect [facility]-2022 Miscellaneous Notes* Telephone Encounter - Radha Pyle RN - 12/27/2021 9:57 AM EDT Triage completed 12/27 for MC symptoms. See triage encounter. Radha Pyle RN documented in this encounterSelect [facility]-2022 Miscellaneous Notes* Telephone Encounter - Marleen Schaffer [...] EDT December 25, 2021 Patient Contact Number: [phone] (home) [phone] (cell) Patient last seen within the last year: Yes Reason for Call: Medication Issue/Question: Patient states that she is supposed to decrease medication in preparation of surgery in two weeks, but she is having symptoms and is having difficulty tolorating. Thank you, Deonna Bryant, Admin documented in this encounterSelect [facility]2022 Miscellaneous Notes* Telephone Encounter - Brittany Norton [...] need schedules to follow. documented in this encounterSelect [facility]-13-2022 History of Present illness Narrative* Marisol Cook, [...] 15, 2021 11:04 AM documented in this encounterSelect [facility]-13-2022 History of Present illness Narrative* Doreen Le [...] bilateral inflow resting waveforms. 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 Lua PACEMAKER 10/2019 PART. HYSTERECTOMY W/WO RMVL OVARIES/TUBES 1974 h/o cervical cancer ovaries remain PAST SURGICAL HISTORY OF 1996 Aortic valve repair, Dr. Apodaca PAST SURGICAL HISTORY OF 2001 [address] Beltrán, [facility] PAST SURGICAL HISTORY OF 2016 [...] LEFT Doreen Le PA-C documented in this encounterSelect [facility]-2022 Miscellaneous Notes* Telephone Encounter - Marleen Schaffer [...] EDT December 03, 2021 Patient Contact Number: [phone] (home) [phone] (cell) Patient last seen within the last [...] you, Deonna Bryant, Admin documented in this encounterSelect [facility]22 History of Present illness Narrative* Dagmar Thomas - 11/27/2021 12:36 PM EDT set documented in this encounterSelect [facility]-2022 History of Present illness Narrative* Na Ramirez [...] ESOPHAGOGASTRODUODENOSCOPY TRANSORAL DIAGNOSTIC 02/28/2021 LAP COLECTOMY, SIGMOID W/BIOFUELS PLANT MANAGER N/A 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 Molsey MASTOIDECTOMY Right 04/30/2015 cholesteatoma removed, Dr. Lua PACEMAKER 10/2019 PART. HYSTERECTOMY W/WO RMVL OVARIES/TUBES 1973 h/o cervical cancer ovaries remain PAST SURGICAL HISTORY OF 1996 Aortic valve repair, Dr. Apodaca PAST SURGICAL HISTORY OF 2001 [address] Beltrán, [facility] PAST SURGICAL HISTORY OF 2015 [...] ambulation Time spent: 45 documented in this encounterSelect [facility]-2022 Miscellaneous Notes* Telephone Encounter - Marycruz Olguin [...] encounter? yes Marycruz Olguin documented in this encounterSelect [facility]2022 Miscellaneous Notes* Telephone Encounter - Sigifredo Monge [...] to cancel the procedure on 09/29 in [place]. She thought this was cancelled about a month ago when she received a call. She stated she is so sorry. documented in this encounterSelect [facility]-2022 Miscellaneous Notes* Telephone Encounter - Inga Pineda [...] procedure. Patient stated understanding. documented in this encounterSelect [facility]21 History of Past illness Narrative* Problem Noted [...] get beds in local hospital, transferred to [facility]. 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 Patient had her eyes examined in [place] this year and was told that she [...] of this encounter (statuses as of 09/23/2021) [facility] History of Past illness Narrative* Problem Noted [...] get beds in local hospital, transferred to [facility]. 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 Patient had her eyes examined in [place] this year and was told that she [...] of this encounter (statuses as of 09/26/2021) [facility] History of Past illness Narrative* Problem Noted [...] get beds in local hospital, transferred to [facility]. 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 Patient had her eyes examined in [place] this year and was told that she [...] of this encounter (statuses as of 10/22/2021) [facility] History of Past illness Narrative* Problem Noted [...] get beds in local hospital, transferred to [facility]. Anemia 10/24/2019 09/12/2021 Last Assessment & [...] 12/22/2018 Prosthetic aortic valve stenosis 11/19/2016 12/22/2018 intermediate current use of antiarrhythmic medical therapy [...] diarrhea. Patient had her eyes examined in [place] this year and was told that she [...] of this encounter (statuses as of 11/17/2021) [facility] History of Past illness Narrative* Problem Noted [...] get beds in local hospital, transferred to [facility]. 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 Patient had her eyes examined in [place] this year and was told that she [...] of this encounter (statuses as of 11/27/2021) [facility] History of Past illness Narrative* Problem Noted [...] get beds in local hospital, transferred to [facility]. Anemia 10/24/2019 09/12/2021 Last Assessment & [...] 12/22/2018 Prosthetic aortic valve stenosis 11/19/2016 12/22/2018 intermediate current use of antiarrhythmic medical therapy [...] diarrhea. Patient had her eyes examined in [place] this year and was told that she [...] of this encounter (statuses as of 11/27/2021) [facility] History of Past illness Narrative* Problem Noted [...] get beds in local hospital, transferred to [facility]. Anemia 10/24/2019 09/12/2021 Last Assessment & [...] 12/22/2018 Prosthetic aortic valve stenosis 11/19/2016 12/22/2018 intermediate current use of antiarrhythmic medical therapy [...] diarrhea. Patient had her eyes examined in [place] this year and was told that she [...] of this encounter (statuses as of 12/04/2021) [facility] History of Past illness Narrative* Problem Noted [...] get beds in local hospital, transferred to [facility]. 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 Patient had her eyes examined in [place] this year and was told that she [...] of this encounter (statuses as of 12/04/2021) [facility] History of Past illness Narrative* Problem Noted [...] get beds in local hospital, transferred to [facility]. 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 Patient had her eyes examined in [place] this year and was told that she [...] of this encounter (statuses as of 12/13/2021) [facility] History of Past illness Narrative* Problem Noted [...] get beds in local hospital, transferred to [facility]. 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 Patient had her eyes examined in [place] this year and was told that she [...] of this encounter (statuses as of 12/15/2021) [facility] History of Past illness Narrative* Problem Noted [...] get beds in local hospital, transferred to [facility]. Anemia 10/24/2019 09/12/2021 Last Assessment & [...] 12/22/2018 Prosthetic aortic valve stenosis 11/19/2016 12/22/2018 intermediate current use of antiarrhythmic medical therapy [...] diarrhea. Patient had her eyes examined in [place] this year and was told that she [...] of this encounter (statuses as of 12/25/2021) [facility] History of Past illness Narrative* Problem Noted [...] get beds in local hospital, transferred to [facility]. Anemia 10/24/2019 09/12/2021 Last Assessment & [...] 12/22/2018 Prosthetic aortic valve stenosis 11/19/2016 12/22/2018 intermediate current use of antiarrhythmic medical therapy [...] diarrhea. Patient had her eyes examined in [place] this year and was told that she [...] of this encounter (statuses as of 12/27/2021) [facility] History of Past illness Narrative* Problem Noted [...] get beds in local hospital, transferred to [facility]. 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 Patient had her eyes examined in [place] this year and was told that she [...] of this encounter (statuses as of 12/27/2021) [facility] History of Past illness Narrative* Problem Noted [...] get beds in local hospital, transferred to [facility]. 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 Patient had her eyes examined in [place] this year and was told that she [...] of this encounter (statuses as of 12/29/2021) [facility] History of Past illness Narrative* Problem Noted [...] get beds in local hospital, transferred to [facility]. 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 Patient had her eyes examined in [place] this year and was told that she [...] of this encounter (statuses as of 01/01/2022) [facility] History of Past illness Narrative* Problem Noted [...] get beds in local hospital, transferred to [facility]. Anemia 10/24/2019 09/12/2021 Last Assessment & [...] 12/22/2018 Prosthetic aortic valve stenosis 11/19/2016 12/22/2018 intermediate current use of antiarrhythmic medical therapy [...] diarrhea. Patient had her eyes examined in [place] this year and was told that she [...] of this encounter (statuses as of 01/03/2022) [facility] History of Past illness Narrative* Problem Noted [...] get beds in local hospital, transferred to [facility]. 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 Patient had her eyes examined in [place] this year and was told that she [...] of this encounter (statuses as of 01/07/2022) [facility] - [place]08-14-2021 History of Past illness Narrative* Problem Noted [...] get beds in local hospital, transferred to [facility]. Anemia 10/24/2019 09/12/2021 Last Assessment & [...] 12/22/2018 Prosthetic aortic valve stenosis 11/19/2016 12/22/2018 intermediate current use of antiarrhythmic medical therapy [...] diarrhea. Patient had her eyes examined in [place] this year and was told that she [...] of this encounter (statuses as of 01/09/2022) [place] [id number] History of Past illness Narrative* Problem Noted [...] get beds in local hospital, transferred to [facility]. Anemia 10/24/2019 09/12/2021 Last Assessment & [...] 12/22/2018 Prosthetic aortic valve stenosis 11/19/2016 12/22/2018 intermediate current use of antiarrhythmic medical therapy [...] diarrhea. Patient had her eyes examined in [place] this year and was told that she [...] of this encounter (statuses as of 01/09/2022) [facility] [place] History of Past illness Narrative* Problem Noted [...] get beds in local hospital, transferred to [facility]. Anemia 10/24/2019 09/12/2021 Last Assessment & [...] 12/22/2018 Prosthetic aortic valve stenosis 11/19/2016 12/22/2018 intermediate current use of antiarrhythmic medical therapy [...] diarrhea. Patient had her eyes examined in [place] this year and was told that she [...] of this encounter (statuses as of 01/10/2022) [facility] [place] History of Past illness Narrative* Problem Noted [...] get beds in local hospital, transferred to [facility]. 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 Patient had her eyes examined in [place] this year and was told that she [...] of this encounter (statuses as of 01/15/2022) [facility] [place] History of Past illness Narrative* Problem Noted [...] get beds in local hospital, transferred to [facility]. Anemia 10/24/2019 09/12/2021 Last Assessment & [...] 12/22/2018 Prosthetic aortic valve stenosis 11/19/2016 12/22/2018 intermediate current use of antiarrhythmic medical therapy [...] diarrhea. Patient had her eyes examined in [place] this year and was told that she [...] of this encounter (statuses as of 01/16/2022) [facility] [place] History of Past illness Narrative* Problem Noted [...] get beds in local hospital, transferred to [facility]. 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 Patient had her eyes examined in [place] this year and was told that she [...] of this encounter (statuses as of 01/20/2022) [facility] History of Past illness Narrative* Problem Noted [...] get beds in local hospital, transferred to [facility]. 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 Patient had her eyes examined in [place] this year and was told that she [...] of this encounter (statuses as of 01/21/2022) [facility] History of Past illness Narrative* Problem Noted [...] get beds in local hospital, transferred to [facility]. Anemia 10/24/2019 09/12/2021 Last Assessment & [...] 12/22/2018 Prosthetic aortic valve stenosis 11/19/2016 12/22/2018 intermediate current use of antiarrhythmic medical therapy [...] diarrhea. Patient had her eyes examined in [place] this year and was told that she [...] of this encounter (statuses as of 01/23/2022) [facility] [place] History of Past illness Narrative* Problem Noted [...] get beds in local hospital, transferred to [facility]. 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 Patient had her eyes examined in [place] this year and was told that she [...] of this encounter (statuses as of 02/09/2022) [facility] [place] History of Past illness Narrative* Problem Noted [...] get beds in local hospital, transferred to [facility]. 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 Patient had her eyes examined in [place] this year and was told that she [...] of this encounter (statuses as of 02/20/2022) [facility] [place] History of Past illness Narrative* Problem Noted [...] get beds in local hospital, transferred to [facility]. 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 Patient had her eyes examined in [place] this year and was told that she [...] of this encounter (statuses as of 02/23/2022) [facility] Author Dianne tSovall [facility] Note Date/Time January 11, 2025 12:3 0pm [facility] Medical Records Department [address] [place] [address] Instructions for Home/Discharge Instructions 01/11/25 1226 MR#: [id number] Acct: [id number] Name: BERTA SANCHES Rep #:[id number] : [...] Hernandez MD [Non-Staff] - Deysi Collazo NP, FOUNDRY WORKER-C [Primary Care Provider] - Disposition Disposition (needs filled in before D/C Order can be placed): Home, Self Care 01/11/25 1230<Electronically signed by Dianne Stovall DO>Dianne Stovall DO CC: FOUNDRY WORKER-C Deysi Collazo; Dr. Jeremy Mcgarry MD; Dr. Radha Heller MD ~ Signed [facility] Work Phone: Evaluation note* Diagnosis PAD (peripheral artery disease) ([facility])- Primary Peripheral vascular disease, unspecified Anemia due to chronic illness Anemia of other chronic disease Atrial fibrillation, unspecified type ([facility]) [facility] Diagnosis PAD (peripheral artery disease) (HCC)- Primary Peripheral vascular disease, unspecified PVD (peripheral vascular disease) ([facility]) Peripheral vascular disease, unspecified Atrial fibrillation, unspecified type ([facility]) [facility]* Diagnosis Renal mass, right- Primary Unspecified [...] this encounter [facility]* Diagnosis Anemia, unspecified type- Primary Atrial fibrillation, unspecified type (HCC) [facility] Diagnosis Anemia, blood loss- Primary Iron [...] unspecified type (HCC) [facility]* Diagnosis Acute blood loss anemia Acute posthemorrhagic anemia Heme + stool Nonspecific abnormal finding in stool contents Epigastric pain Abdominal pain, epigastric Atrial fibrillation, unspecified type (HCC) documented in this encounter [facility] noteNo assessment information [facility]WMer[facility] Work Phone: Evaluation note* Diagnosis Heme positive stool- Primary Nonspecific abnormal finding in stool contents Blood loss anemia Iron deficiency anemia secondary to blood loss (chronic) Atrial fibrillation, unspecified type (HCC) documented in this encounter [facility] note* Diagnosis Atrial fibrillation, unspecified type (HCC)- Primary Gastrointestinal hemorrhage, unspecified gastrointestinal hemorrhage type Anemia due to chronic blood loss Iron deficiency anemia secondary to blood loss (chronic) Other fatigue SOB (shortness of breath) Shortness of breath [facility]* Diagnosis Atrial fibrillation, unspecified type (HCC)- Primary Presence of Watchman left atrial appendage closure device Herpes zoster without complication Herpes zoster without mention of complication [facility]* Diagnosis Paroxysmal atrial fibrillation (HCC)- Primary Atrial fibrillation [facility]* Diagnosis Paroxysmal atrial fibrillation (HCC)- Primary Atrial fibrillation Presence of Watchman left atrial appendage closure device documented [facility]* Diagnosis Rectal bleeding- Primary Hemorrhage of rectum and anus Anemia, blood loss Iron deficiency anemia secondary to blood loss (chronic) Diarrhea, unspecified type documented [facility] this [facility]* Diagnosis Longstanding persistent atrial fibrillation (HCC)- Primary Presence of Watchman left atrial appendage closure device documented [facility]* Diagnosis Acute combined systolic and diastolic [...] Unspecified essential hypertension documented [facility] this [facility] Diagnosis History of prosthetic aortic valve [...] of cerebral infarction documented [facility] this [facility]* Diagnosis Right renal mass Unspecified disorder of kidney and ureter documented [facility] this [facility]* Diagnosis Paroxysmal atrial fibrillation (HCC) Atrial fibrillation Presence of Watchman left atrial appendage closure device documented [facility]* Diagnosis Hospital discharge follow-up- Primary Other [...] blood loss (chronic) [facility] 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 Other specified intestinal malabsorption [facility] Diagnosis 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 Neoplasm of uncertain behavior of kidney and ureter Iron 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) Stage 3b chronic kidney disease (HCC) [facility] Diagnosis Iron 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- Primary Iron malabsorption Other specified intestinal malabsorption [facility] Diagnosis Iron 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- Primary Iron malabsorption Other specified intestinal malabsorption [facility] Diagnosis Iron 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- Primary Iron malabsorption Other specified intestinal malabsorption [facility] Diagnosis Primary hypertension Unspecified essential hypertension [facility] Diagnosis Iron 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- Primary Iron malabsorption Other specified intestinal malabsorption [facility] Diagnosis Iron 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- Primary Chronic renal failure, stage 3b (HCC) [facility] Diagnosis Primary hypertension Unspecified essential hypertension [facility] Diagnosis H/O rheumatic heart disease- [...] vascular disease, unspecified [facility] Diagnosis Lung nodule, solitary- Primary Solitary pulmonary nodule documented [facility]* Diagnosis Heme + stool Nonspecific abnormal finding in stool contents Epigastric pain Abdominal pain, epigastric Blood loss anemia Iron deficiency anemia secondary to blood loss (chronic) [facility] Diagnosis History of prosthetic aortic valve [...] and unspecified hyperlipidemia documented [facility] this [facility]* Diagnosis Primary hypertension Unspecified essential hypertension documented [facility] this [facility]* Diagnosis S/P placement of cardiac pacemaker- [...] of insulin (HCC) documented in this encounter [facility] note* Diagnosis Bilateral carotid artery stenosis- Primary Occlusion and stenosis of carotid artery without mention of cerebral infarction Atherosclerosis of [place] artery of both lower extremities with intermittent claudication (HCC) Atherosclerosis of [place] arteries of the extremities with intermittent claudication 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HCC) Acute vascular insufficiency of intestine Pain in both lower legs 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 Other specified intestinal malabsorption S/P placement of cardiac pacemaker Cardiac pacemaker in situ SSS (sick sinus syndrome) ([facility]) Sinoatrial node dysfunction Chronic combined systolic and [...] deficiency anemia type documented in this encounter [facility] note* Diagnosis PVD (peripheral vascular disease) with claudication ([facility])- Primary Peripheral vascular disease, unspecified [facility] Heme + stool Nonspecific abnormal finding in stool contents Epigastric pain Abdominal pain, epigastric Blood loss anemia Iron deficiency anemia secondary to blood loss (chronic) [facility] Diagnosis Lung nodule, solitary Solitary pulmonary nodule [facility]* Diagnosis 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 [facility] Diagnosis Closed nondisplaced fracture of fifth metatarsal bone of right foot with routine healing, subsequent encounter- Primary [facility] Diagnosis Influenza-like illness- Primary Influenza with other respiratory manifestations [facility] Diagnosis 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)- Primary Chronic combined systolic and diastolic heart failure Dilated cardiomyopathy (HCC) Other primary cardiomyopathies [facility]* Diagnosis SSS (sick sinus syndrome) ([facility])- Primary Sinoatrial node dysfunction Paroxysmal atrial fibrillation [...] vitamin D deficiency [facility] Borderline anemia- Primary Acute systolic congestive heart failure (HCC) Acute systolic heart failure [facility] Diagnosis Acute systolic CHF (congestive heart [...] osteoarthrosis, lower leg [facility]* Diagnosis Acute HFrEF (heart failure with reduced ejection fraction) ([facility])- Primary VHD (valvular heart disease) Endocarditis, valve unspecified, unspecified cause Nonrheumatic tricuspid valve regurgitation Tricuspid valve disorders, specified as nonrheumatic Nonrheumatic mitral valve regurgitation Persistent atrial fibrillation (HCC) Atrial fibrillation Pacemaker Cardiac pacemaker in situ documented [facility]* Diagnosis Venous insufficiency- Primary Unspecified venous (peripheral) insufficiency documented in this [facility]* Diagnosis Venous insufficiency- Primary Unspecified venous (peripheral) insufficiency documented in this encounter [facility]* Diagnosis Iron 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- Primary Iron malabsorption Other specified intestinal malabsorption documented [facility]* Diagnosis Acute systolic CHF (congestive heart failure) ([facility])- Primary Acute systolic heart failure Hyponatremia Hyposmolality and/or hyponatremia Hypokalemia Hypopotassemia documented [facility] this encounter [facility]* Diagnosis Chronic diastolic congestive heart failure (HCC)- Primary Chronic diastolic heart failure Primary hypertension Unspecified essential hypertension SSS (sick sinus syndrome) ([facility]) Sinoatrial node dysfunction Longstanding persistent atrial fibrillation ([facility]) Acute systolic CHF (congestive heart failure) ([facility]) Acute systolic heart failure documented [facility]* Diagnosis URI, acute- Primary Acute upper respiratory infections of unspecified site documented [facility] this [facility]* Diagnosis History of prosthetic aortic valve replacement- Primary Heart valve replaced by other means H/O rheumatic heart disease Personal history of other diseases of circulatory system Longstanding persistent atrial fibrillation ([facility]) Ascending aorta dilatation ([facility]) Thoracic aortic ectasia Dilated cardiomyopathy ([facility]) Other primary cardiomyopathies Aortic prosthetic valve regurgitation, subsequent encounter Chronic diastolic (congestive) heart failure (HCC) SSS (sick sinus syndrome) ([facility]) Sinoatrial node dysfunction Primary hypertension Unspecified essential hypertension Hyperlipidemia with target LDL less than 70 Other and unspecified hyperlipidemia S/P placement of cardiac pacemaker Cardiac pacemaker in situ PAD (peripheral artery disease) ([facility]) Peripheral vascular disease, unspecified Acute systolic CHF (congestive heart failure) (HCC) Acute systolic heart failure [facility] Diagnosis Chronic diastolic congestive heart failure (HCC)- Primary Chronic diastolic heart failure documented in this encounter [facility]* Diagnosis Chronic kidney disease, unspecified CKD stage- Primary documented in this [facility]* Diagnosis SOB (shortness of breath)- Primary [...] Coronary atherosclerosis of unspecified type of vessel, [place] or graft SUMMARY Hyperlipidemia LDL goal < [...] uncontrolled Acute systolic CHF (congestive heart failure) ([facility]) Acute systolic heart failure [facility] Diagnosis SOB (shortness of breath)- Primary [...] Coronary atherosclerosis of unspecified type of vessel, [place] or graft SUMMARY Hyperlipidemia LDL goal < [...] healing, subsequent encounter [facility]* Diagnosis SOB (shortness of breath)- Primary [...] Coronary atherosclerosis of unspecified type of vessel, [place] or graft SUMMARY Hyperlipidemia LDL goal < [...] right middle finger [facility]* Diagnosis SOB (shortness of breath)- Primary [...] Coronary atherosclerosis of unspecified type of vessel, [place] or graft SUMMARY Hyperlipidemia LDL goal < [...] of left side [facility]* Diagnosis SOB (shortness of breath)- Primary [...] Coronary atherosclerosis of unspecified type of vessel, [place] or graft SUMMARY Hyperlipidemia LDL goal < [...] atrial fibrillation (HCC) documented [facility] Diagnosis SOB (shortness of breath)- Primary [...] Coronary atherosclerosis of unspecified type of vessel, [place] or graft SUMMARY Hyperlipidemia LDL goal < [...] Other follow-up examination documented in this encounter [facility] note* Diagnosis SOB (shortness of [...] Coronary atherosclerosis of unspecified type of vessel, [place] or graft SUMMARY Hyperlipidemia LDL goal < [...] type, unspecified whether acute cor pulmonale present ([facility]) Gastrointestinal hemorrhage, unspecified gastrointestinal hemorrhage type Iron [...] Unspecified essential hypertension SSS (sick sinus syndrome) ([facility]) Sinoatrial node dysfunction Longstanding persistent atrial fibrillation ([facility]) Stage 3b chronic kidney disease ([facility]) [facility]* Diagnosis SOB (shortness of breath)- Primary [...] Coronary atherosclerosis of unspecified type of vessel, [place] or graft SUMMARY Hyperlipidemia LDL goal < [...] of cerebral infarction [facility]* Diagnosis SOB (shortness of breath)- Primary [...] Coronary atherosclerosis of unspecified type of vessel, [place] or graft SUMMARY Hyperlipidemia LDL goal < [...] diastolic heart failure [facility] Diagnosis SOB (shortness of breath)- Primary [...] Coronary atherosclerosis of unspecified type of vessel, [place] or graft SUMMARY Hyperlipidemia LDL goal < [...] this [facility] Diagnosis SOB (shortness of breath)- Primary [...] Coronary atherosclerosis of unspecified type of vessel, [place] or graft SUMMARY Hyperlipidemia LDL goal < [...] Sinoatrial node dysfunction Longstanding persistent atrial fibrillation ([facility]) [facility]* Diagnosis SOB (shortness of breath)- Primary [...] Coronary atherosclerosis of unspecified type of vessel, [place] or graft SUMMARY Hyperlipidemia LDL goal < [...] [facility] Diagnosis SOB (shortness of breath)- Primary [...] Coronary atherosclerosis of unspecified type of vessel, [place] or graft SUMMARY Hyperlipidemia LDL goal < [...] and unspecified hyperlipidemia documented in this encounter [facility] Diagnosis Onset Date Resolution Status Admit Date CHF exacerbation acute January 4:29pm [facility] Work Phone: History and physical note Author Radha Heller [facility] Note Date/Time January 07, 2025 4:35p m [facility] Medical Records Department [address] [place] [address] H&P Exam - Hospitalist 01/07/25 1629 MR#: [id number] Acct: [id number] Name: BERTA SANCHES Rep #:[id number] : [...] post Watchman device, congestive heart failure presented [facility] ED 01/07/2025 with several weeks of shortness of breath and bilateral lower extremity edema. Reportedly in September 2023 she had surgery in [place] for some kind of intra-abdominal artery blockageand was placed on Plavix and aspirin and was having difficulties with her heart failure at that time. She came home at the end of October and has been taking herLasix 40 twice daily and spironolactone 12.5 mg twice daily without improvement. She recently followed with her [facility] institution director with increase in her Lasix by mouth [...] bowel or bladder changes. ROS otherwise negative [facility] Medical History Anxiety Brain aneurysm Bronchospasm with [...] % (Auto) 59.8, Lymph % (Auto) 24.2, Greenlee % (Auto) 12.9 H, Eos % (Auto) [...] Sens 71 H*, [place] [address] H 01/07/25 14:54: Troponin T Hi Sens 2 Hr 68 H* Imaging Radiology Impression Chest X-Ray 01/07/25 13:19 IMPRESSION: Findings consistent with mild congestive heart failure. Reading Location: [id number] Assessment & Plan Assessment/Plan (1) CHF exacerbation: [...] Heller MD Charges/Coding Visit Charges Inpatient E&M: 30813 Init Hosp L2 01/07/25 1635 <Electronically signed by Radha Heller MD> Cosigner Signature (if applicable): CC: JARROD Collazo; Dr. Radha Heller MD~ Signed [facility] Work Phone: Hospital Discharge instructionsAdditional Instructions [facility]: [facility] Work Phone: Hospital Discharge instructionsAdditional Instructions Follow-up with your doctor next week. Continue to use your bumetanide and your metolazone for your fluid retention. Follow-up with Dr. Flores early next week to ensure you are improving. Return to the emergency department if you are feeling worse.[facility] Work Phone: Hospital Discharge instructionsAdditional Instructions [...] the ER should you have any further [facility] Work Phone: Progress note Author Ric Noriega [facility] Note Date/Time April 24, 2025 4 :45pm [facility] [address] [place] [address] OFFICE VISIT Date of Service: 04/24/25 1525 MR#: [id number] Acct: [id number] Name: BERTA SANCHES SCOTTIE Rep #: [id number] : 1945 From: Ric champion MD Age/Sex: 79/F Location: [facility] Status: Signed HPI Subjective Date of [...] right leg. In 2024 and while in [place] she was hospitalized underwent a colonoscopy to herknowledge did not show any bleeding lesions, she is unaware whether she had an EGD or not during that hospital stay but she was placed on PPI therapy since. 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 Ric Noriega MD Teachers' Assistant, [facility] Divisions of Medical Oncology & Hematology Department of Internal Medicine [facility] [place] [address] This note was generated using a voice [...] signed by Ric smith MD> Date _ iRc Noriega MD Cosigner Signature: Date (if applicable) CC: Dr. Vincent Flores MD ~ [facility] Work Phone: [employer] for referral (narrative)* Diagnostic Procedure Only (Routine) - Closed Specialty Diagnoses / Procedures Referred By Leilani ng Referred To Contact XR IMAGING Diagnoses Ischial bursitis of left side Procedures XR HIP GENERAL 3V PELV/AP/LAT LEFT RADEX HIP UNILATERAL WITH PELVIS 2-3 VIEWS Doreen Le PA-C [address] [place] [address] Xr Imaging Referral ID Status Reason Start Date Expiration Date V isits Requested Visits Authorized [id number] Closed Auto-Generate d Referral 12/15/2021 01/14/2023 1 1 [facility] for referral (narrative)* Outpatient Procedure (Routine) - Pending Review Specialty Diagnoses / Procedures Referred By Leilani ng Referred To Contact [facility] Diagnoses Acute blood loss anemia Heme + stool Epigastric pain Procedures EGD DIAGNOSTIC ESOPHAGOGASTRODUODENOSC OPY TRANSORAL DIAGNOSTIC REFERRAL TO [facility] FINANCIAL COUNSELOR Chai Encinas MD [address] [place] [address] [facility] [address] [place] [address] Referral ID Status Reason Start Date Expiration Date Visits Requested Visits Authorized [id number] Pending Review Auto-Generated Referral 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 OON Notification Letter Patient Cleared - Admin/Auctioneer Art/D irector advise to proceed 2 04/01/2022 1 1 [facility] for referral (narrative)* Outpatient Procedure (Routine) - Closed Specialty Diagnoses / Procedures Referred By Leilani ng Referred To Contact Diagnoses Acute blood loss anemia Heme + stool Epigastric pain Procedures EGD DIAGNOSTIC ESOPHAGOGASTRODUODENOSCOPY TRANSORAL DIAGNOSTIC REFERRAL TO [facility] FINANCIAL COUNSELOR Chai Encinas MD [address] [facility] [place] [address] [facility] [address] [place] [address] Referral ID Status Reason Start Date Expiration Date Visits Requested Visits Authorized [id number] Closed Auto-Generated Referral 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 OON Notification Letter Patient Cleared - Admin/Auctioneer Art/D irector advise to proceed 01/01/2022 07/04/2022 1 1 [facility] for referral (narrative)* Outpatient Procedure (Routine) - Pending Review Specialty Diagnoses / Procedures Referred By Leilani ng Referred To Contact [facility] Diagnoses Paroxysmal atrial fibrillation (HCC) Procedures ECHO TRANSESOPHAGEAL ECHO TRANSESOPHAG R-T 2D W/PRB IMG ACQUISJ I&R Candi Beauchamp APRN.GRAVEDIGGER [address] [place] [address] [facility] [place] [address] [place] [address] Referral ID Status Reason Start Date Expiration Date Visits Requested Visits Authorized [id number] Pending Review Auto-Generat ed Referral 01/21/2022 01/21/2023 1 1 * Outpatient Procedure (Routine) - Pending Review Specialty Diagnoses / Procedures Referred By Leilani ng Referred To Contact [facility] Diagnoses Paroxysmal atrial fibrillation (HCC) Procedures ECG COMPLETE ECG ROUTINE ECG W/LEAST 12 LDS W/I&R Candi Beauchamp APRN.GRAVEDIGGER [address], [address] [place] [address] [facility] [place] [address] [place] [address] Referral ID Status Reason Start Date Expiration Date Visits Requested Visits Authorized [id number] Pending Review Auto-Generat ed Referral 01/21/2022 01/21/2023 1 1 * Outpatient Procedure (Routine) - Pending Review Specialty Diagnoses / Procedures Referred By Contac t Referred To Contact [facility] Diagnoses Paroxysmal atrial fibrillation (HCC) Procedures ECHO TRANSESOPHAGEAL ECHO TRANSESOPHAG R-T 2D W/PRB IMG VIOLAISGlenna I&R Candi Beauchamp APRN.GRAVEDIGGER [address], [address] [place] [id number] [facility] [place] [address] [place] [address] Referral ID Status Reason Start Date Expiration Date Visits Requested Visits Authorized [id number] Pending Review Auto-Generat ed Referral 01/21/2022 01/21/2023 1 1 [facility] for referral (narrative)* Outpatient Procedure (Routine) - Pending Review Specialty Diagnoses / Procedures Referred By Contac t Referred To Contact [facility] Diagnoses Paroxysmal atrial fibrillation (HCC) Presence of Watchman left atrial appendage closure device Procedures ECHO TRANSESOPHAGEAL ECHO TRANSESOPHAG R-T 2D W/PRB IMG LINUS I&R Candi Beauchamp APRN.GRAVEDIGGER [address], [address] [address] [facility] [place] [address] [place] [address] Referral ID Status Reason Start Date Expiration Date Visits Requested Visits Authorized [id number] Pending Review Auto-Generat ed Referral 02/09/2022 02/09/2023 1 1 * Outpatient Procedure (Routine) - Pending Review Specialty Diagnoses / Procedures Referred By Contac t Referred To Contact [facility] Diagnoses Paroxysmal atrial fibrillation (HCC) Presence of Watchman left atrial appendage closure device Procedures ECG COMPLETE ECG ROUTINE ECG W/LEAST 12 LDS W/I&R Candi Beauchamp APRN.CNP [address] [place] [id number] [facility] [place] [address] [place] [address] Referral ID Status Reason Start Date Expiration Date Visits Requested Visits Authorized [id number] Pending Review Auto-Generat ed Referral 02/09/2022 02/09/2023 1 1 * Outpatient Procedure (Routine) - Pending Review Specialty Diagnoses / Procedures Referred By Contac t Referred To Contact [facility] Diagnoses Paroxysmal atrial fibrillation (HCC) Presence of Watchman left atrial appendage closure device Procedures ECHO TRANSESOPHAGEAL ECHO TRANSESOPHAG R-T 2D W/PRB IMG ACQUISGlenna I&R Candi Beauchamp APRN.GRAVEDIGGER [address] [facility] [place] [id number] [place] [address] [address] [place] [id number] Referral ID Status Reason Start Date Expiration Date Visits Requested Visits Authorized [id number] Pending Review Auto-Generat ed Referral 02/09/2022 02/09/2023 1 1 [facility] for referral (narrative)* Outpatient Procedure (Routine) - Pending Review Specialty Diagnoses / Procedures Referred By Contac t Referred To Contact [facility] Diagnoses Longstanding persistent atrial fibrillation (HCC) Presence of Watchman left atrial appendage closure device Procedures ECHO TRANSESOPHAGEAL ECHO TRANSESOPHAG R-T 2D W/PRB IMG ACQUISJ I&R Radha Torres APRN.GRAVEDIGGER [address] [place] [id number] [address] [address] Referral ID Status Reason Start Date Expiration Date Visits Requested Visits Authorized [id number] Pending Review Auto-Generat ed Referral 03/04/2022 03/04/2023 1 1 [facility] for referral (narrative)* Outpatient Procedure (Routine) - Authorized Specialty Diagnoses / Procedures Referred By Contac t Referred To Contact [facility] Diagnoses Aortic prosthetic valve regurgitation, 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) Procedures ECG COMPLETE ECG ROUTINE ECG W/LEAST 12 LDS W/I&R Doreen Le PA-C [address] [place] [address] [address] Referral ID Status Reason Start Date Expiration Date Visits Requested Visits Authorized [id number] Authorized Auto-Generat ed Referral 03/19/2022 03/19/2023 1 1 [facility] for referral (narrative)* Diagnostic Procedure Only (Routine) - Authorized Specialty Diagnoses / Procedures [facility] Referred To Contact US IMAGING Diagnoses Neoplasm of uncertain behavior of right kidney Procedures US KIDNEY/BLADDER US RETROPERITONEAL REAL TIME W/IMAGE COMPLETE Brayan Chicas MD [address] [place] [address] Us Imaging Referral ID Status Reason Start Date Expiration Date Visits Requested Visits Authorized [id number] Authorized Auto-Generat ed Referral 09/02/2022 05/09/2023 1 1 [facility] for referral (narrative)* Outpatient Procedure (Routine) - Authorized Specialty Diagnoses / Procedures Referred By Contac t Referred To Contact [facility] Diagnoses History of prosthetic aortic valve replacement H/O rheumatic heart disease Procedures ECHO ECHO TTHRC R-T 2D W/WOM-MODE COMPL SPEC&COLR D Carla Burdick MD [address] [place] [address] [facility] [address] [address] Referral ID Status Reason Start Date Expiration Date Visits Requested Visits Authorized [id number] Authorized Auto-Generat ed Referral 03/05/2023 09/28/2023 1 1 [facility] for referral (narrative)* Outpatient Procedure (Routine) - Pending Review Specialty Diagnoses / Procedures Referred By Contac t Referred To Contact [facility] Diagnoses 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HCC) Pain in both lower legs Atherosclerosis of [place] artery of both lower extremities with intermittent claudication (HCC) Procedures PVR LEG [facility] NON-INVASIVE PHYSIOLOGIC STUDY EXTREMITY 3 LEVLS Doreen Le PA-C [address] [place] [address] [facility] [address] [address] Referral ID Status Reason Start Date Expiration Date Visits Requested Visits Authorized [id number] Pending Review Auto-Generat ed Referral 01/07/2023 01/07/2024 1 1 * Outpatient Procedure (Routine) - Pending Review Specialty Diagnoses / Procedures Referred By Contac t Referred To Contact [facility] Diagnoses 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HCC) Pain in both lower legs Atherosclerosis of [place] artery of both lower extremities with intermittent claudication (HCC) Procedures PVR ANK PRESS [facility] NON-INVAS PHYSIOLOGIC STD EXTREMITY ART 2 LEVEL Doreen Le PA-C [address] [place] [address] [facility] [address] [address] Referral ID Status Reason Start Date Expiration Date Visits Requested Visits Authorized [id number] Pending Review Auto-Generat ed Referral 01/07/2023 01/07/2024 1 1 * Outpatient Procedure (Routine) - Authorized Specialty Diagnoses / Procedures [facility] Referred To Contact [facility] Diagnoses Bilateral carotid artery stenosis Procedures US CAROTID ARTERIES [facility] DUPLEX SCAN EXTRACRANIAL ART COMPL BI STUDY Doreen Le PA-C [address] [place] [address] [address] Referral ID Status Reason Start Date Expiration Date Visits Requested Visits Authorized [id number] Authorized Auto-Generat ed Referral 01/07/2023 01/07/2024 1 1 [facility] for referral (narrative)* Diagnostic Procedure Only (Routine) - Closed Specialty Diagnoses / Procedures [facility] Referred To Contact US IMAGING Diagnoses Neoplasm of uncertain behavior of right kidney Procedures US KIDNEY/BLADDER US RETROPERITONEAL REAL TIME W/IMAGE COMPLETE Brayan Chicas MD [address] [place] [address] [place] [address] Referral ID Status Reason Start Date Expiration Date V isits Requested Visits Authorized [id number] Closed Auto-Generate d Referral 09/02/2022 05/09/2023 1 1 [facility] for referral (narrative)* Outpatient Procedure (Routine) - Authorized Specialty Diagnoses / Procedures [facility] Referred To Contact [facility] Diagnoses Acute systolic CHF (congestive heart failure) (HCC) Procedures ECHO ECHO TTHRC R-T 2D W/WOM-MODE COMPL SPEC&COLR D Doreen Le PA-C [address] [place] [address] [facility] [address] [address] Referral ID Status Reason Start Date Expiration Date Visits Requested Visits Authorized [id number] Authorized Auto-Generat ed Referral 10/18/2023 10/17/2024 1 1 * Outpatient Procedure (Routine) - Pending Review Specialty Diagnoses / Procedures Referred By Contac t Referred To Contact [facility] [place] Diagnoses Acute systolic CHF (congestive heart failure) (HCC) Procedures ECG COMPLETE ECG ROUTINE ECG W/LEAST 12 LDS W/I&R Doreen Le PA-C [address] [place] [address] [facility] [place] [address] [place] [address] Referral ID Status Reason Start Date Expiration Date Visits Requested Visits Authorized [id number] Pending Review Auto-Generat ed Referral 10/18/2023 10/17/2024 1 1 [facility] for referral (narrative)* Outpatient Procedure (Routine) - Closed Specialty Diagnoses / Procedures Referred By Contac t Referred To Contact [facility] Diagnoses Venous insufficiency Procedures US LEG VEIN DVT [facility] DUP-SCAN XTR VEINS COMPLETE BILATERAL STUDY Lars Silva DO [address] [place] [address] [address] Referral ID Status Reason Start Date Expiration Date V isits Requested Visits Authorized [id number] Closed Auto-Generate d Referral 10/14/2023 10/13/2024 1 1 [facility] for referral (narrative)* Diagnostic Procedure Only (Routine) - Closed Specialty Diagnoses / Procedures Referred By Contac t Referred To Contact XR IMAGING Diagnoses Closed nondisplaced fracture of fifth metatarsal bone of right foot with routine healing, subsequent encounter Procedures XR FOOT GENERAL 3V AP/LAT/OBL RIGHT RADEX FOOT COMPLETE MINIMUM 3 VIEWS Doreen Le PA-C [address] [place] [address] [place] [address] Referral ID Status Reason Start Date Expiration Date V isits Requested Visits Authorized [id number] Closed Auto-Generate d Referral 06/01/2023 06/30/2024 1 1 [facility] for referral (narrative)* Diagnostic Procedure Only (Routine) - Closed Specialty Diagnoses / Procedures Referred By Leilani t Referred To Contact XR IMAGING Diagnoses Pain of right middle finger Procedures XR DIGIT GENERAL 3V FRONTAL/LAT/OBL RIGHT RADEX FINGR MINIMUM 2 VIEWS Doreen Le PA-C [address] [place] [address] [place] [address] Referral ID Status Reason Start Date Expiration Date V isits Requested Visits Authorized [id number] Closed Auto-Generate d Referral 04/12/2023 05/11/2024 1 1 [facility] for referral (narrative)* Diagnostic Procedure Only (Routine) - Closed Specialty Diagnoses / Procedures Referred By Leilani ng Referred To Contact XR IMAGING Diagnoses Ischial bursitis of left side Procedures XR HIP GENERAL 3V PELV/AP/LAT LEFT RADEX HIP UNILATERAL WITH PELVIS 2-3 VIEWS Doreen Le PA-C [address] [place] [address] [place] [address] Referral ID Status Reason Start Date Expiration Date V isits Requested Visits Authorized [id number] Closed Auto-Generate d Referral 12/15/2021 01/14/2023 1 1 [facility] for referral (narrative)No [facility] for [facility] Work Phone: [facility] for visit Narrative* Outpatient Procedure (Routine) - Closed Specialty Diagnoses / Procedures Referred By Leilani t Referred To Contact Diagnoses Acute blood loss anemia Heme + stool Epigastric pain Procedures EGD DIAGNOSTIC ESOPHAGOGASTRODUODENOSCOPY TRANSORAL DIAGNOSTIC REFERRAL TO [facility] FINANCIAL COUNSELOR Chai Encinas MD [address] [place] [address] [facility] [address] [place] [address] Referral ID Status Reason Start Date Expiration Date Visits Requested Visits Authorized [id number] Closed Auto-Generated Referral 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 OON Notification Letter Patient Cleared - Admin/Auctioneer Art/D irector advise to proceed 01/01/2022 07/04/2022 1 1 [facility] for visit Narrative* Diagnostic Procedure Only (Routine) - Closed Specialty Diagnoses / Procedures Referred By Contac t Referred To Contact Laboratory Medicine / LAB COVID TESTING LL Lot Diagnoses Paroxysmal atrial fibrillation PRE-PROCEDURE & PRE-OPERATIVE COVID Paroxysmal atrial fibrillation (HCC) [I48.0] Procedures COVID19 LAB COVID Chandler Swan MD [address] [place] [address] [place] [address] [place] [address] Referral ID Status Reason Start Date Expiration Date Visits Re quested Visits Authorized [id number] Closed 01/09/2022 07/04/2022 1 1 [facility] for visit Narrative* Diagnostic Procedure Only (Routine) - Closed Specialty Diagnoses / Procedures Referred By Contac t [facility] Diagnoses Paroxysmal atrial fibrillation (HCC) Presence of Watchman left atrial appendage closure device Procedures ECHO TRANSESOPHAGEAL ECHO TRANSESOPHAG R-T 2D W/PRB IMG LINUS I&R Candi Beauchamp APRN.GRAVEDIGGER [address] [facility] [place] [address] [facility] [place] [facility] [place] [id number] Referral ID Status Reason Start Date Expiration Date V isits Requested Visits Authorized [id number] Closed Auto-Generate d Referral 02/09/2022 07/04/2022 1 1 [facility] for visit Narrative* Diagnostic Procedure Only (Routine) - Closed Specialty Diagnoses / Procedures Referred By Contac t Referred To Contact XR IMAGING Diagnoses Closed nondisplaced fracture of fifth metatarsal bone of right foot with routine healing, subsequent encounter Procedures XR FOOT GENERAL 3V AP/LAT/OBL RIGHT RADEX FOOT COMPLETE MINIMUM 3 VIEWS Doreen Le PA-C [address] [place] [address] [place] [address] Referral ID Status Reason Start Date Expiration Date V isits Requested Visits Authorized [id number] Closed Auto-Generate d Referral 06/01/2023 06/30/2024 1 1 [facility] for visit Narrative* Diagnostic Procedure Only (Routine) - Closed Specialty Diagnoses / Procedures Referred By Contac t Referred To Contact XR IMAGING Diagnoses Pain of right middle finger Procedures XR DIGIT GENERAL 3V FRONTAL/LAT/OBL RIGHT RADEX FINGR MINIMUM 2 VIEWS Doreen Le PA-C [address] [place] [address] [place] [address] Referral ID Status Reason Start Date Expiration Date V isits Requested Visits Authorized [id number] Closed Auto-Generate d Referral 04/12/2023 05/11/2024 1 1 [facility] for visit Narrative* Diagnostic Procedure Only (Routine) - Closed Specialty Diagnoses / Procedures Referred By Contac t Referred To Contact XR IMAGING Diagnoses Ischial bursitis of left side Procedures XR HIP GENERAL 3V PELV/AP/LAT LEFT RADEX HIP UNILATERAL WITH PELVIS 2-3 VIEWS Doreen Le PA-C [address] [place] [address] [place] [address] Referral ID Status Reason Start Date Expiration Date V isits Requested Visits Authorized [id number] Closed Auto-Generate d Referral 12/15/2021 01/14/2023 1 1 [facility] Summary Purpose Family History Relationship Condition Age [...] Documents on File Type Date Recorded Patient Repair Armature Winder Expl anation Advance Directive(s) 02/26/2021 11:31 AM Advance Directive(s) 10/02/2020 4:46 PM Advance Directive(s) 10/24/2019 6:40 PM Advance Directive(s) 07/18/2019 8:41 AM Advance Directive(s) 06/21/2019 9:34 AM Advance Directive(s) 05/04/2019 8:22 AM Advance Directive(s) 03/22/2019 7:15 AM Advance Directive(s) 08/31/2015 1:42 PM Advance Directive(s) 08/20/2015 4:21 PM Documents on File Type Date Recorded Patient Repair Armature Winder Expl anation Advance Directive(s) 02/26/2021 11:31 AM Advance Directive(s) 10/02/2020 4:46 PM Advance Directive(s) 10/24/2019 6:40 PM Advance Directive(s) 07/18/2019 8:41 AM Advance Directive(s) 06/21/2019 9:34 AM Advance Directive(s) 05/04/2019 8:22 AM Advance Directive(s) 03/22/2019 7:15 AM Advance Directive(s) 08/31/2015 1:42 PM Advance Directive(s) 08/20/2015 4:21 PM Documents on File Type Date Recorded Patient Repair Armature Winder Expl anation Advance Directive(s) 12/23/2021 1:13 PM Advance Directive(s) 02/26/2021 11:31 AM Advance Directive(s) 10/02/2020 4:46 PM Advance Directive(s) 10/24/2019 6:40 PM Advance Directive(s) 07/18/2019 8:41 AM Advance Directive(s) 06/21/2019 9:34 AM Advance Directive(s) 05/04/2019 8:22 AM Advance Directive(s) 03/22/2019 7:15 AM Advance Directive(s) 08/31/2015 1:42 PM Advance Directive(s) 08/20/2015 4:21 PM Documents on File Type Date Recorded Patient Repair Armature Winder Expl anation Advance Directive(s) 12/23/2021 1:13 PM Advance Directive(s) 02/26/2021 11:31 AM Advance Directive(s) 10/02/2020 4:46 PM Advance Directive(s) 10/24/2019 6:40 PM Advance Directive(s) 07/18/2019 8:41 AM Advance Directive(s) 06/21/2019 9:34 AM Advance Directive(s) 05/04/2019 8:22 AM Advance Directive(s) 03/22/2019 7:15 AM Advance Directive(s) 08/31/2015 1:42 PM Advance Directive(s) 08/20/2015 4:21 PM Documents on File Type Date Recorded Patient Repair Armature Winder Expl anation Advance Directive(s) 01/02/2022 8:28 AM [...] Will No February 13 6:44pm Power of Senior Software Analyst No February 13 021 6:44pm Documents on File Type Date Recorded Patient Repair Armature Winder Expl anation Advance Directive(s) 01/02/2022 8:28 AM [...] Do you have a Healthcare Power of Senior Software Analyst? Yes January 07, 2025 1:29pm Advance Directives No July 13, 2015 4:56pm Advance Directive Response Recorded Date/ Time Do you have a Healthcare Power of Senior Software Analyst? Yes January 07, 2025 5:54pm Advance Directives No July 13, 2015 4:56pm Advance Directive Response Recorded Date/ Time Do you have a Healthcare Power of Senior Software Analyst? Yes January 07, 2025 5:54pm Do you have a Healthcare Power of Senior Software Analyst? Yes February 16, 2025 12:03pm Name of Medical Power of Senior Software Analyst February 16, 2025 12:03pm Advance Directives No July 13, 2015 4:56pm Advance Directive Response Recorded Date/ Time Do you have a Healthcare Power of Senior Software Analyst? Yes January 07, 2025 5:54pm Do you have a Healthcare Power of Senior Software Analyst? Yes February 16, 2025 12:03pm Name of Medical Power of Senior Software Analyst February 16, 2025 12:03pm Do you have a Healthcare Power of Senior Software Analyst? Yes March 22, 2025 3:36am Advance Directives No July 13, 2015 4:56pm Advance Directive Response Recorded Date/ Time Do you have a Healthcare Power of Senior Software Analyst? Yes February 16, 2025 11:03am Name of Medical Power of Senior Software Analyst February 16, 2025 11:03am Do you have a Healthcare Power of Senior Software Analyst? Yes March 22, 2025 2:36am Advance Directives [...] fibrillation. Previously seen by me at [facility]. 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 Dr. Washington at [facility] contacted. 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 Moderate mitral regurgitation Mitral valve disorders Status post aortic valve replacement with tissue valve Heart valve replaced by other means Medications Administered Section Inactive Administered Medications - up to 3 most recent administrations Medication Order MAR Action Action Date Dose Rate Site benzocaine 20% 4 [place] (TOPEX) 4 [place], TOPICAL, ONCE, 1 dose, On Wed01/02/22 at [...] EXACERBATION January 11, 2025 12:3 0pm Stroke [facility] 7/6 ([place]) February 05, 2025 8:53am [...] EXACERBATION January 11, 2025 12:3 0pm Stroke [facility] 7/6 ([place]) February 05, 2025 8:53am [...] EXACERBATION January 11, 2025 12:3 0pm Stroke [facility] 7/6 ([place]) February 05, 2025 8:53am Pacer Check Remote February 08, 2025 9:0 0am Establish Pacer Care February 08, 2025 9: 56am Chief Complaint Admit Date CHF EXACERBATION January 07, 2025 4:29p m CHF EXACERBATION January 08, 2025 6:49p m CHF EXACERBATION January 09, 2025 2:34p m CHF EXACERBATION January 10, 2025 6:23p m CHF EXACERBATION January 11, 2025 12:3 0pm Stroke [facility] 7/6 ([place]) February 05, 2025 8:53am [...] EXACERBATION January 11, 2025 12:3 0pm Stroke [facility] 7/6 ([place]) February 05, 2025 8:53am [...] EXACERBATION January 11, 2025 12:3 0pm Stroke [facility] 7/6 ([place]) February 05, 2025 8:53am [...] EXACERBATION January 11, 2025 12:3 0pm Stroke [facility] 7/6 ([place]) February 05, 2025 8:53am [...] 15, 2025 11:00am PAD (peripheral artery disease) [facility] 2024 11:00am PAF (paroxysmal atrial fibrillation) [facility] 2024 11:00am Chief Complaint Admit Date CHF EXACERBATION January 07, 2025 4:29p m CHF EXACERBATION January 08, 2025 6:49p m CHF EXACERBATION January 09, 2025 2:34p m CHF EXACERBATION January 10, 2025 6:23p m CHF EXACERBATION January 11, 2025 12:3 0pm Stroke [facility] 7/6 ([place]) February 05, 2025 8:53am [...] EXACERBATION January 11, 2025 12:3 0pm Stroke [facility] 7/6 ([place]) February 05, 2025 8:53am [...] 29, 2025 11:00am PAD (peripheral artery disease) [facility] 2024 11:00am PAF (paroxysmal atrial fibrillation) [facility]2024 11:00am Chronic kidney disease, stage 3b [...] EXACERBATION January 11, 2025 12:3 0pm Stroke [facility] 7/6 ([place]) February 05, 2025 8:53am [...] [email or web address] 11:22am Chief Complaint Admit Date Stroke [facility] 7/ ([place]) February 05, 2025 8:53am [...] TOMOGRAPHY THORAX W/O CNTRST Doreen Le PA-C [address] [place] [address] Ct Imaging Referral ID Status Reason Start Date Expiration Date Visits Requested Visits Authorized [id number] Pending Review Auto-Generat ed Referral 07/07/2022 05/06/2023 1 1 Specialty Diagnoses / Procedures Referred By Contac t Referred To Contact Hematology Diagnoses Iron deficiency anemia due to chronic blood loss Procedures CONSULT TO HEMATOLOGY OFFICE/OUTPATIENT [facility] 60-74 MINUTES Doreen Le PA-C [address] [place] [address] Referral ID Status Reason Start Date Expiration Date Visits Requested Visits Authorized [id number] Pending Review PCP Requested Referral 04/06/2022 04/06/2023 1 1 Specialty Diagnoses / Procedures Referred By Contac t Referred To Contact MR IMAGING Diagnoses 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 Procedures MRA BRAIN WO/W IVCON MRA; HEAD W & WO CONTRAST Doreen Le PA-C [address] [place] [address] Mr Imaging Referral ID Status Reason Start Date Expiration Date Visits Requested Visits Authorized [id number] Pending Review Auto-Generat ed Referral 07/07/2022 08/06/2023 1 1 Specialty Diagnoses / Procedures Referred By Contac t Referred To Contact Vascular Surgery Diagnoses PVD (peripheral vascular disease) with claudication (HCC) Procedures CONSULT TO VASCULAR SURGERY OFFICE/OUTPATIENT [facility] 60-74 MINUTES Doreen Le PA-C [address] [place] [address] Referral ID Status Reason Start Date Expiration Date Visits Requested Visits Authorized [id number] Pending Review PCP Requested Referral 01/28/2023 01/28/2024 1 1 Specialty Diagnoses / Procedures Referred By Contac t Referred To Contact CT IMAGING Diagnoses Lung nodule, solitary Procedures CT CHEST WO IVCON DIAGNOSTIC COMPUTED TOMOGRAPHY THORAX W/O CNTRST Doreen Le PA-C [address] [place] [address] [place] [address] Referral ID Status Reason Start Date Expiration Date V isits Requested Visits Authorized [id number] Closed Auto-Generate d Referral 07/07/2022 05/06/2023 1 1 Specialty Diagnoses / Procedures Referred By Contac t Referred To Contact Hematology Diagnoses 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 Procedures CONSULT TO HEMATOLOGY OFFICE/OUTPATIENT [facility] 60 MINUTES Doreen Le PA-C [address] [place] [address] Referral ID Status Reason Start Date Expiration Date Visits Requested Visits Authorized [id number] Authorized PCP Requested Referral 11/15/2023 11/14/2024 1 1 Additional Source Comments INFORMATION SOURCE (unrecogn ized section and content) DATE CREATED AUTHOR 12/22/2017 [facility] DATE CREATED AUTHOR AUTHOR'S ORGANIZ ATION 03/09/2019 [facility] DATE CREATED AUTHOR AUTHOR'S ORGANIZ ATION 02/21/2021 [facility] DATE CREATED AUTHOR AUTHOR'S ORGANIZ ATION 11/09/2023 [facility] DATE CREATED AUTHOR AUTHOR'S ORGANIZ ATION 02/09/2024 [facility] DATE CREATED AUTHOR AUTHOR'S ORGANIZ ATION 12/27/2024 [facility] DATE CREATED AUTHOR AUTHOR'S ORGANIZ ATION 01/02/2025 [facility] DATE CREATED AUTHOR AUTHOR'S ORGANIZ ATION 05/16/2025 [facility] Reason for Visit (unrecogniz ed section and content) Reason Comments Non-Chemotherapy Treatment Specialty Diagnoses / Procedures Referred By Contac t Referred To Contact Diagnoses 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 Procedures IRON SUCROSE INJECTION PER 1 MG Ralph Mujica DO [address] [place] [address] [facility] [address] [place] [address] Referral ID Status Reason Start Date Expiration Date V isits Requested Visits Authorized [id number] Authorized 04/07/2022 07/04/2022 99 99 Reason Comments Follow Up Specialty Diagnoses / Procedures Referred By Contac t Referred To Contact Cardiology / CARD ADMIN [facility] Diagnoses Follow-up examination 6 month follow up Procedures OFFICE/OUTPATIENT ESTABLISHED [facility] 30-39 MIN EST PATIENT Carla Burdick MD [address] [place] [address] Carla Burdick MD [address] [place] [address] Referral ID Status Reason Start Date Expiration Date Visits Re quested Visits Authorized [id number] Closed 03/30/2022 07/04/2022 1 1 Reason Comments [...] MINUTES NEW DDI PATIENT Doreen Le PASammy [address] [place] [address] Chai Encinas MD [address] [place] [address] Referral ID Status Reason Start Date Expiration Date V isits Requested Visits Authorized [id number] 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 [...] Procedures 4C EST Self, Doreen Jackson PACarolineC [address] [place] [address] Referral ID Status Reason Start Date Expiration Date Visits Re quested Visits Authorized [id number] Closed 01/16/2022 07/04/2022 1 1 Reason Onset Date Comments Refill Request 01/19/2022 Reason Comments Patient Question ORDER FOR ABDIEL AND EC G Reason Comments Diarrhea A few weeks Specialty Diagnoses / Procedures Referred By Leilani t Referred To Contact Family Practice / FAMILY MEDICINE Diagnoses Chronic diarrhea Procedures MYC OFFICE VISIT Self, Doreen Jackson PA-C [address] [place] [address] Referral ID Status Reason Start Date Expiration Date Visits Re quested Visits Authorized [id number] Closed 02/20/2022 07/04/2022 1 1 Reason Comments Procedure Follow Up EGD completed on 01/02 Reason Onset Date Comments Transition Of Care 02/25/2022 [facility] 02/24/2023 Reason Comments Reminder Call Transesophageal Echo 03/03/22 Specialty Diagnoses / Procedures Referred By Contact Referred To Contact Cardiology / CARDIOVASCULAR MEDICINE Diagnoses Paroxysmal atrial fibrillation Presence of Watchman left atrial appendage closure device Per [facility] Procedures REFERRAL TO [facility]SEL[facility] EST CLINICIAN Chandler Swan MD [address] [place] [address] Radha Torres APRN.CNP [address] [place] [id number] Referral ID Status Reason Start Date Expiration Date Visits Requested Visits Authorized [id number] 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 [...] MYC OFFICE VISIT Self Doreen Le PA-C [address] [place] [address] Referral ID Status Reason Start Date Expiration Date Visits Re quested Visits Authorized [id number] Closed 03/03/2022 07/04/2022 1 1 Reason Onset Date Comments Transition Of Care 03/20/2022 [facility] readmissi on Reason Onset Date Comments Appointment 03/21/2022 Reason Comments 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 Reason Comments Hospital Follow [...] Reason Comments Information Reason Comments Research IRB [id number] TRIM-AF Reason Onset Date Comments Refill Request [...] THORAX W/O CNTRST Doreen Le PA-C [address] [place] [address] [place] [address] Referral ID Status Reason Start Date Expiration Date V isits Requested Visits Authorized [id number] Closed Auto-Generate d Referral 07/07/2022 05/06/2023 1 1 Reason Comments Radiology US Specialty Diagnoses / Procedures Referred By Contac t Referred To Contact US IMAGING Diagnoses Neoplasm of uncertain behavior of right kidney Procedures US KIDNEY/BLADDER US RETROPERITONEAL REAL TIME W/IMAGE COMPLETE Brayan Chicas MD [address] [place] [address] [place] [address] Referral ID Status Reason Start Date Expiration Date V isits Requested Visits Authorized [id number] Closed Auto-Generate d Referral 09/02/2022 05/09/2023 1 1 Reason Comments Cough Chest congestion x l ast night Reason Comments Patient Update Reason Comments Leg Edema Reason Comments Results Orders Reason Comments Follow Up 6 month Reason Comments Established Patient Reason Comments Initial Consult HEART FAILURE 31681 Reason Comments Transition Of Care Reason Onset Date Comments ACM CECY RN 11/16/2023 E.D. Utilizat ion Review per Payer Request. Reason Comments Patient Question Reason Comments Hospital Follow Up [facility] follow up dc'd 11/12/23 dx: [...] Follow Up hospital follow up- CHF in [facility] for 23 days, discharged October 28 [...] or prosecute any alcohol or drug abuse patient.[facility] the event this information is protected by the Federal Confidentiality of Alcohol and Drug Abuse Patient Records regulations: The Federal rules restrict any use of the information to criminally investigate or prosecute any alcohol or drug abuse patient.[facility] the event this information is protected by the Federal Confidentiality of Alcohol and Drug Abuse Patient Records regulations: The Federal rules restrict any use of the information to criminally investigate or prosecute any alcohol or drug abuse patient.[facility] the event this information is protected by the Federal Confidentiality of Alcohol and Drug Abuse Patient Records regulations: The Federal rules restrict any use of the information to criminally investigate or prosecute any alcohol or drug abuse patient.[facility] the event this information is protected by the Federal Confidentiality of Alcohol and Drug Abuse Patient Records regulations: The Federal rules restrict any use of the information to criminally investigate or prosecute any alcohol or drug abuse patient.[facility] the event this information is protected by the Federal Confidentiality of Alcohol and Drug Abuse Patient Records regulations: The Federal rules restrict any use of the information to criminally investigate or prosecute any alcohol or drug abuse patient.[facility] the event this information is protected by the Federal Confidentiality of Alcohol and Drug Abuse Patient Records regulations: The Federal rules restrict any use of the information to criminally investigate or prosecute any alcohol or drug abuse patient.[facility] the event this information is protected by the Federal Confidentiality of Alcohol and Drug Abuse Patient Records regulations: The Federal rules restrict any use of the information to criminally investigate or prosecute any alcohol or drug abuse patient.[facility] the event this information is protected by the Federal Confidentiality of Alcohol and Drug Abuse Patient Records regulations: The Federal rules restrict any use of the information to criminally investigate or prosecute any alcohol or drug abuse patient.[facility] the event this information is protected by the Federal Confidentiality of Alcohol and Drug Abuse Patient Records regulations: The Federal rules restrict any use of the information to criminally investigate or prosecute any alcohol or drug abuse patient.[facility] the event this information is protected by the Federal Confidentiality of Alcohol and Drug Abuse Patient Records regulations: The Federal rules restrict any use of the information to criminally investigate or prosecute any alcohol or drug abuse patient.[facility] the event this information is protected by the Federal Confidentiality of Alcohol and Drug Abuse Patient Records regulations: The Federal rules restrict any use of the information to criminally investigate or prosecute any alcohol or drug abuse patient.[facility] the event this information is protected by the Federal Confidentiality of Alcohol and Drug Abuse Patient Records regulations: The Federal rules restrict any use of the information to criminally investigate or prosecute any alcohol or drug abuse patient.[facility] the event this information is protected by [...] or prosecute any alcohol or drug abuse patient.[facility] the event this information is protected by the Federal Confidentiality of Alcohol and Drug Abuse Patient Records regulations: The Federal rules restrict any use of the information to criminally investigate or prosecute any alcohol or drug abuse patient.[facility] the event this information is protected by the Federal Confidentiality of Alcohol and Drug Abuse Patient Records regulations: The Federal rules restrict any use of the information to criminally investigate or prosecute any alcohol or drug abuse patient.[facility] the event this information is protected by the Federal Confidentiality of Alcohol and Drug Abuse Patient Records regulations: The Federal rules restrict any use of the information to criminally investigate or prosecute any alcohol or drug abuse patient.[facility] the event this information is protected by the Federal Confidentiality of Alcohol and Drug Abuse Patient Records regulations: The Federal rules restrict any use of the information to criminally investigate or prosecute any alcohol or drug abuse patient.[facility] the event this information is protected by the Federal Confidentiality of Alcohol and Drug Abuse Patient Records regulations: The Federal rules restrict any use of the information to criminally investigate or prosecute any alcohol or drug abuse patient.[facility] the event this information is protected by the Federal Confidentiality of Alcohol and Drug Abuse Patient Records regulations: The Federal rules restrict any use of the information to criminally investigate or prosecute any alcohol or drug abuse patient.[facility] the event this information is protected by the Federal Confidentiality of Alcohol and Drug Abuse Patient Records regulations: The Federal rules restrict any use of the information to criminally investigate or prosecute any alcohol or drug abuse patient.[facility] the event this information is protected by the Federal Confidentiality of Alcohol and Drug Abuse Patient Records regulations: The Federal rules restrict any use of the information to criminally investigate or prosecute any alcohol or drug abuse patient.[facility] the event this information is protected by the Federal Confidentiality of Alcohol and Drug Abuse Patient Records regulations: The Federal rules restrict any use of the information to criminally investigate or prosecute any alcohol or drug abuse patient.[facility] the event this information is protected by the Federal Confidentiality of Alcohol and Drug Abuse Patient Records regulations: The Federal rules restrict any use of the information to criminally investigate or prosecute any alcohol or drug abuse patient.[facility] the event this information is protected by the Federal Confidentiality of Alcohol and Drug Abuse Patient Records regulations: The Federal rules restrict any use of the information to criminally investigate or prosecute any alcohol or drug abuse patient.[facility] the event this information is protected by the Federal Confidentiality of Alcohol and Drug Abuse Patient Records regulations: The Federal rules restrict any use of the information to criminally investigate or prosecute any alcohol or drug abuse patient.[facility] the event this information is protected by the Federal Confidentiality of Alcohol and Drug Abuse Patient Records regulations: The Federal rules restrict any use of the information to criminally investigate or prosecute any alcohol or drug abuse patient.[facility] the event this information is protected by the Federal Confidentiality of Alcohol and Drug Abuse Patient Records regulations: The Federal rules restrict any use of the information to criminally investigate or prosecute any alcohol or drug abuse patient.[facility] the event this information is protected by the Federal Confidentiality of Alcohol and Drug Abuse Patient Records regulations: The Federal rules restrict any use of the information to criminally investigate or prosecute any alcohol or drug abuse patient.[facility] the event this information is protected by the Federal Confidentiality of Alcohol and Drug Abuse Patient Records regulations: The Federal rules restrict any use of the information to criminally investigate or prosecute any alcohol or drug abuse patient.[facility] the event this information is protected by the Federal Confidentiality of Alcohol and Drug Abuse Patient Records regulations: The Federal rules restrict any use of the information to criminally investigate or prosecute any alcohol or drug abuse patient.[facility] the event this information is protected by the Federal Confidentiality of Alcohol and Drug Abuse Patient Records regulations: The Federal rules restrict any use of the information to criminally investigate or prosecute any alcohol or drug abuse patient.[facility] the event this information is protected by the Federal Confidentiality of Alcohol and Drug Abuse Patient Records regulations: The Federal rules restrict any use of the information to criminally investigate or prosecute any alcohol or drug abuse patient.[facility] the event this information is protected by the Federal Confidentiality of Alcohol and Drug Abuse Patient Records regulations: The Federal rules restrict any use of the information to criminally investigate or prosecute any alcohol or drug abuse patient.[facility] the event this information is protected by the Federal Confidentiality of Alcohol and Drug Abuse Patient Records regulations: The Federal rules restrict any use of the information to criminally investigate or prosecute any alcohol or drug abuse patient.[facility] the event this information is protected by the Federal Confidentiality of Alcohol and Drug Abuse Patient Records regulations: The Federal rules restrict any use of the information to criminally investigate or prosecute any alcohol or drug abuse patient.[facility] the event this information is protected by the Federal Confidentiality of Alcohol and Drug Abuse Patient Records regulations: The Federal rules restrict any use of the information to criminally investigate or prosecute any alcohol or drug abuse patient.[facility] the event this information is protected by the Federal Confidentiality of Alcohol and Drug Abuse Patient Records regulations: The Federal rules restrict any use of the information to criminally investigate or prosecute any alcohol or drug abuse patient.[facility] the event this information is protected by the Federal Confidentiality of Alcohol and Drug Abuse Patient Records regulations: The Federal rules restrict any use of the information to criminally investigate or prosecute any alcohol or drug abuse patient.[facility] the event this information is protected by the Federal Confidentiality of Alcohol and Drug Abuse Patient Records regulations: The Federal rules restrict any use of the information to criminally investigate or prosecute any alcohol or drug abuse patient.[facility] the event this information is protected by the Federal Confidentiality of Alcohol and Drug Abuse Patient Records regulations: The Federal rules restrict any use of the information to criminally investigate or prosecute any alcohol or drug abuse patient.[facility] the event this information is protected by the Federal Confidentiality of Alcohol and Drug Abuse Patient Records regulations: The Federal rules restrict any use of the information to criminally investigate or prosecute any alcohol or drug abuse patient.[facility] the event this information is protected by the Federal Confidentiality of Alcohol and Drug Abuse Patient Records regulations: The Federal rules restrict any use of the information to criminally investigate or prosecute any alcohol or drug abuse patient.[facility] the event this information is protected by the Federal Confidentiality of Alcohol and Drug Abuse Patient Records regulations: The Federal rules restrict any use of the information to criminally investigate or prosecute any alcohol or drug abuse patient.[facility] the event this information is protected by the Federal Confidentiality of Alcohol and Drug Abuse Patient Records regulations: The Federal rules restrict any use of the information to criminally investigate or prosecute any alcohol or drug abuse patient.[facility] the event this information is protected by the Federal Confidentiality of Alcohol and Drug Abuse Patient Records regulations: The Federal rules restrict any use of the information to criminally investigate or prosecute any alcohol or drug abuse patient.[facility] the event this information is protected by the Federal Confidentiality of Alcohol and Drug Abuse Patient Records regulations: The Federal rules restrict any use of the information to criminally investigate or prosecute any alcohol or drug abuse patient.[facility] the event this information is protected by the Federal Confidentiality of Alcohol and Drug Abuse Patient Records regulations: The Federal rules restrict any use of the information to criminally investigate or prosecute any alcohol or drug abuse patient.[facility] the event this information is protected by the Federal Confidentiality of Alcohol and Drug Abuse Patient Records regulations: The Federal rules restrict any use of the information to criminally investigate or prosecute any alcohol or drug abuse patient.[facility] the event this information is protected by the Federal Confidentiality of Alcohol and Drug Abuse Patient Records regulations: The Federal rules restrict any use of the information to criminally investigate or prosecute any alcohol or drug abuse patient.[facility] the event this information is protected by the Federal Confidentiality of Alcohol and Drug Abuse Patient Records regulations: The Federal rules restrict any use of the information to criminally investigate or prosecute any alcohol or drug abuse patient.[facility] the event this information is protected by the Federal Confidentiality of Alcohol and Drug Abuse Patient Records regulations: The Federal rules restrict any use of the information to criminally investigate or prosecute any alcohol or drug abuse patient.[facility] the event this information is protected by the Federal Confidentiality of Alcohol and Drug Abuse Patient Records regulations: The Federal rules restrict any use of the information to criminally investigate or prosecute any alcohol or drug abuse patient.[facility] the event this information is protected by the Federal Confidentiality of Alcohol and Drug Abuse Patient Records regulations: The Federal rules restrict any use of the information to criminally investigate or prosecute any alcohol or drug abuse patient.[facility] the event this information is protected by the Federal Confidentiality of Alcohol and Drug Abuse Patient Records regulations: The Federal rules restrict any use of the information to criminally investigate or prosecute any alcohol or drug abuse patient.[facility] the event this information is protected by the Federal Confidentiality of Alcohol and Drug Abuse Patient Records regulations: The Federal rules restrict any use of the information to criminally investigate or prosecute any alcohol or drug abuse patient.[facility] the event this information is protected by the Federal Confidentiality of Alcohol and Drug Abuse Patient Records regulations: The Federal rules restrict any use of the information to criminally investigate or prosecute any alcohol or drug abuse patient.[facility] the event this information is protected by the Federal Confidentiality of Alcohol and Drug Abuse Patient Records regulations: The Federal rules restrict any use of the information to criminally investigate or prosecute any alcohol or drug abuse patient.[facility] the event this information is protected by the Federal Confidentiality of Alcohol and Drug Abuse Patient Records regulations: The Federal rules restrict any use of the information to criminally investigate or prosecute any alcohol or drug abuse patient.[facility] the event this information is protected by the Federal Confidentiality of Alcohol and Drug Abuse Patient Records regulations: The Federal rules restrict any use of the information to criminally investigate or prosecute any alcohol or drug abuse patient.[facility] the event this information is protected by the Federal Confidentiality of Alcohol and Drug Abuse Patient Records regulations: The Federal rules restrict any use of the information to criminally investigate or prosecute any alcohol or drug abuse patient.[facility] the event this information is protected by the Federal Confidentiality of Alcohol and Drug Abuse Patient Records regulations: The Federal rules restrict any use of the information to criminally investigate or prosecute any alcohol or drug abuse patient.[facility]In the event this information is protected by [...] or prosecute any alcohol or drug abuse patient.[facility] the event this information is protected by the Federal Confidentiality of Alcohol and Drug Abuse Patient Records regulations: The Federal rules restrict any use of the information to criminally investigate or prosecute any alcohol or drug abuse patient.[facility] the event this information is protected by the Federal Confidentiality of Alcohol and Drug Abuse Patient Records regulations: The Federal rules restrict any use of the information to criminally investigate or prosecute any alcohol or drug abuse patient.[facility] the event this information is protected by the Federal Confidentiality of Alcohol and Drug Abuse Patient Records regulations: The Federal rules restrict any use of the information to criminally investigate or prosecute any alcohol or drug abuse patient.[facility] the event this information is protected by the Federal Confidentiality of Alcohol and Drug Abuse Patient Records regulations: The Federal rules restrict any use of the information to criminally investigate or prosecute any alcohol or drug abuse patient.[facility] the event this information is protected by the Federal Confidentiality of Alcohol and Drug Abuse Patient Records regulations: The Federal rules restrict any use of the information to criminally investigate or prosecute any alcohol or drug abuse patient.[facility] the event this information is protected by the Federal Confidentiality of Alcohol and Drug Abuse Patient Records regulations: The Federal rules restrict any use of the information to criminally investigate or prosecute any alcohol or drug abuse patient.[facility] the event this information is protected by the Federal Confidentiality of Alcohol and Drug Abuse Patient Records regulations: The Federal rules restrict any use of the information to criminally investigate or prosecute any alcohol or drug abuse patient.[facility] the event this information is protected by the Federal Confidentiality of Alcohol and Drug Abuse Patient Records regulations: The Federal rules restrict any use of the information to criminally investigate or prosecute any alcohol or drug abuse patient.[facility] the event this information is protected by the Federal Confidentiality of Alcohol and Drug Abuse Patient Records regulations: The Federal rules restrict any use of the information to criminally investigate or prosecute any alcohol or drug abuse patient.[facility] the event this information is protected by the Federal Confidentiality of Alcohol and Drug Abuse Patient Records regulations: The Federal rules restrict any use of the information to criminally investigate or prosecute any alcohol or drug abuse patient.[facility] the event this information is protected by the Federal Confidentiality of Alcohol and Drug Abuse Patient Records regulations: The Federal rules restrict any use of the information to criminally investigate or prosecute any alcohol or drug abuse patient.[facility] the event this information is protected by the Federal Confidentiality of Alcohol and Drug Abuse Patient Records regulations: The Federal rules restrict any use of the information to criminally investigate or prosecute any alcohol or drug abuse patient.[facility]In the event this information is protected by the Federal Confidentiality of Alcohol and Drug Abuse Patient Records regulations: The Federal rules restrict any use of the information to criminally investigate or prosecute any alcohol or drug abuse patient.[facility] the event this information is protected by the Federal Confidentiality of Alcohol and Drug Abuse Patient Records regulations: The Federal rules restrict any use of the information to criminally investigate or prosecute any alcohol or drug abuse patient.[facility] the event this information is protected by the Federal Confidentiality of Alcohol and Drug Abuse Patient Records regulations: The Federal rules restrict any use of the information to criminally investigate or prosecute any alcohol or drug abuse patient.[facility] the event this information is protected by the Federal Confidentiality of Alcohol and Drug Abuse Patient Records regulations: The Federal rules restrict any use of the information to criminally investigate or prosecute any alcohol or drug abuse patient.[facility] the event this information is protected by the Federal Confidentiality of Alcohol and Drug Abuse Patient Records regulations: The Federal rules restrict any use of the information to criminally investigate or prosecute any alcohol or drug abuse patient.[facility] the event this information is protected by the Federal Confidentiality of Alcohol and Drug Abuse Patient Records regulations: The Federal rules restrict any use of the information to criminally investigate or prosecute any alcohol or drug abuse patient.[facility] the event this information is protected by the Federal Confidentiality of Alcohol and Drug Abuse Patient Records regulations: The Federal rules restrict any use of the information to criminally investigate or prosecute any alcohol or drug abuse patient.[facility] the event this information is protected by the Federal Confidentiality of Alcohol and Drug Abuse Patient Records regulations: The Federal rules restrict any use of the information to criminally investigate or prosecute any alcohol or drug abuse patient.[facility] the event this information is protected by the Federal Confidentiality of Alcohol and Drug Abuse Patient Records regulations: The Federal rules restrict any use of the information to criminally investigate or prosecute any alcohol or drug abuse patient.[facility] the event this information is protected by the Federal Confidentiality of Alcohol and Drug Abuse Patient Records regulations: The Federal rules restrict any use of the information to criminally investigate or prosecute any alcohol or drug abuse patient.[facility]In the event this information is protected by the Federal Confidentiality of Alcohol and Drug Abuse Patient Records regulations: The Federal rules restrict any use of the information to criminally investigate or prosecute any alcohol or drug abuse patient.[facility]In the event this information is protected by the Federal Confidentiality of Alcohol and Drug Abuse Patient Records regulations: The Federal rules restrict any use of the information to criminally investigate or prosecute any alcohol or drug abuse patient.[facility] the event this information is protected by the Federal Confidentiality of Alcohol and Drug Abuse Patient Records regulations: The Federal rules restrict any use of the information to criminally investigate or prosecute any alcohol or drug abuse patient.[facility] the event this information is protected by the Federal Confidentiality of Alcohol and Drug Abuse Patient Records regulations: The Federal rules restrict any use of the information to criminally investigate or prosecute any alcohol or drug abuse patient.[facility] the event this information is protected by the Federal Confidentiality of Alcohol and Drug Abuse Patient Records regulations: The Federal rules restrict any use of the information to criminally investigate or prosecute any alcohol or drug abuse patient.[facility] the event this information is protected by the Federal Confidentiality of Alcohol and Drug Abuse Patient Records regulations: The Federal rules restrict any use of the information to criminally investigate or prosecute any alcohol or drug abuse patient.[facility] the event this information is protected by the Federal Confidentiality of Alcohol and Drug Abuse Patient Records regulations: The Federal rules restrict any use of the information to criminally investigate or prosecute any alcohol or drug abuse patient.[facility] the event this information is protected by the Federal Confidentiality of Alcohol and Drug Abuse Patient Records regulations: The Federal rules restrict any use of the information to criminally investigate or prosecute any alcohol or drug abuse patient.[facility] the event this information is protected by the Federal Confidentiality of Alcohol and Drug Abuse Patient Records regulations: The Federal rules restrict any use of the information to criminally investigate or prosecute any alcohol or drug abuse patient.[facility] the event this information is protected by the Federal Confidentiality of Alcohol and Drug Abuse Patient Records regulations: The Federal rules restrict any use of the information to criminally investigate or prosecute any alcohol or drug abuse patient.[facility] the event this information is protected by the Federal Confidentiality of Alcohol and Drug Abuse Patient Records regulations: The Federal rules restrict any use of the information to criminally investigate or prosecute any alcohol or drug abuse patient.[facility] the event this information is protected by the Federal Confidentiality of Alcohol and Drug Abuse Patient Records regulations: The Federal rules restrict any use of the information to criminally investigate or prosecute any alcohol or drug abuse patient.[facility] the event this information is protected by the Federal Confidentiality of Alcohol and Drug Abuse Patient Records regulations: The Federal rules restrict any use of the information to criminally investigate or prosecute any alcohol or drug abuse patient.[facility] the event this information is protected by the Federal Confidentiality of Alcohol and Drug Abuse Patient Records regulations: The Federal rules restrict any use of the information to criminally investigate or prosecute any alcohol or drug abuse patient.[facility] the event this information is protected by the Federal Confidentiality of Alcohol and Drug Abuse Patient Records regulations: The Federal rules restrict any use of the information to criminally investigate or prosecute any alcohol or drug abuse patient.[facility] the event this information is protected by the Federal Confidentiality of Alcohol and Drug Abuse Patient Records regulations: The Federal rules restrict any use of the information to criminally investigate or prosecute any alcohol or drug abuse patient.[facility] the event this information is protected by the Federal Confidentiality of Alcohol and Drug Abuse Patient Records regulations: The Federal rules restrict any use of the information to criminally investigate or prosecute any alcohol or drug abuse patient.[facility] the event this information is protected by the Federal Confidentiality of Alcohol and Drug Abuse Patient Records regulations: The Federal rules restrict any use of the information to criminally investigate or prosecute any alcohol or drug abuse patient.[facility]In the event this information is protected by the Federal Confidentiality of Alcohol and Drug Abuse Patient Records regulations: The Federal rules restrict any use of the information to criminally investigate or prosecute any alcohol or drug abuse patient.[facility]In the event this information is protected by the Federal Confidentiality of Alcohol and Drug Abuse Patient Records regulations: The Federal rules restrict any use of the information to criminally investigate or prosecute any alcohol or drug abuse patient.[facility]In the event this information is protected by the Federal Confidentiality of Alcohol and Drug Abuse Patient Records regulations: The Federal rules restrict any use of the information to criminally investigate or prosecute any alcohol or drug abuse patient.[facility]In the event this information is protected by the Federal Confidentiality of Alcohol and Drug Abuse Patient Records regulations: The Federal rules restrict any use of the information to criminally investigate or prosecute any alcohol or drug abuse patient.[facility] the event this information is protected by the Federal Confidentiality of Alcohol and Drug Abuse Patient Records regulations: The Federal rules restrict any use of the information to criminally investigate or prosecute any alcohol or drug abuse patient.[facility] the event this information is protected by the Federal Confidentiality of Alcohol and Drug Abuse Patient Records regulations: The Federal rules restrict any use of the information to criminally investigate or prosecute any alcohol or drug abuse patient.[facility] the event this information is protected by the Federal Confidentiality of Alcohol and Drug Abuse Patient Records regulations: The Federal rules restrict any use of the information to criminally investigate or prosecute any alcohol or drug abuse patient.[facility] the event this information is protected by the Federal Confidentiality of Alcohol and Drug Abuse Patient Records regulations: The Federal rules restrict any use of the information to criminally investigate or prosecute any alcohol or drug abuse patient.[facility]In the event this information is protected by [...] or prosecute any alcohol or drug abuse patient.[facility] the event this information is protected by the Federal Confidentiality of Alcohol and Drug Abuse Patient Records regulations: The Federal rules restrict any use of the information to criminally investigate or prosecute any alcohol or drug abuse patient.[facility] the event this information is protected by the Federal Confidentiality of Alcohol and Drug Abuse Patient Records regulations: The Federal rules restrict any use of the information to criminally investigate or prosecute any alcohol or drug abuse patient.[facility] the event this information is protected by the Federal Confidentiality of Alcohol and Drug Abuse Patient Records regulations: The Federal rules restrict any use of the information to criminally investigate or prosecute any alcohol or drug abuse patient.[facility]In the event this information is protected by the Federal Confidentiality of Alcohol and Drug Abuse Patient Records regulations: The Federal rules restrict any use of the information to criminally investigate or prosecute any alcohol or drug abuse patient.[facility] the event this information is protected by the Federal Confidentiality of Alcohol and Drug Abuse Patient Records regulations: The Federal rules restrict any use of the information to criminally investigate or prosecute any alcohol or drug abuse patient.[facility] the event this information is protected by the Federal Confidentiality of Alcohol and Drug Abuse Patient Records regulations: The Federal rules restrict any use of the information to criminally investigate or prosecute any alcohol or drug abuse patient.[facility]In the event this information is protected by the Federal Confidentiality of Alcohol and Drug Abuse Patient Records regulations: The Federal rules restrict any use of the information to criminally investigate or prosecute any alcohol or drug abuse patient.[facility] the event this information is protected by the Federal Confidentiality of Alcohol and Drug Abuse Patient Records regulations: The Federal rules restrict any use of the information to criminally investigate or prosecute any alcohol or drug abuse patient.[facility] the event this information is protected by the Federal Confidentiality of Alcohol and Drug Abuse Patient Records regulations: The Federal rules restrict any use of the information to criminally investigate or prosecute any alcohol or drug abuse patient.[facility]ull[facility] the event this information is protected by the Federal Confidentiality of Alcohol and Drug Abuse Patient Records regulations: The Federal rules restrict any use of the information to criminally investigate or prosecute any alcohol or drug abuse patient.[facility] Care Teams (unrecognized sec tion and content) Team Automobile Assembler Relationship Specialty Start Date End Date Doreen Le PA-C [address] [place] [address] PCP - General Family Practice 11/26/16 No, Referral Referring 01/31/19 [place] [address] [place], [place] [id number] Primary Staff Physician Cardiology 07/15/21 Team Automobile Assembler Relationship Specialty Start Date End Date Doreen Le PA-C [address] [place], [place] 533421 PCP - General Family Practice 11/26/16 No, Referral Referring 01/31/19 [place] [address] [place], [place] [id number] Primary Staff Physician Cardiology 07/15/21 Team Automobile Assembler Relationship Specialty Start Date End Date Doreen Le PA-C [address] [place], [place] 931741 PCP - General Family Practice 11/26/16 No, Referral Referring 01/31/[address] [place] [address] [facility] [place] 0916126 Primary Staff Physician Cardiology 07/15/21 Team Automobile Assembler Relationship Specialty Start Date End Date Doreen Le PA-C [address] [place] [address] PCP - General Family Practice 11/26/16 No, Referral Referring 01/31/19 [place] [address] [place], [place] 2860294 [phone] Primary Staff Physician Cardiology 07/15/21 Team Automobile Assembler Relationship Specialty Start Date End Date Doreen Le PA-C [address] [place] [address] PCP - General Family Practice 11/26/16 No, Referral Referring 01/31/19 [place] [address] [place], [place] 6296073 [phone] Primary Staff Physician Cardiology 07/15/21 Team Automobile Assembler Relationship Specialty Start Date End Date Doreen Le PA-C [address] [place], [place] 911351 PCP - General Family Practice 11/26/16 No, Referral Referring 01/31/19 [place] [address] [place], [place] 8392172 [phone] Primary Staff Physician Cardiology 07/15/21 Team Automobile Assembler Relationship Specialty Start Date End Date Doreen Le PA-C [address] [place] [address] PCP - General Family Practice 11/26/16 No, Referral Referring 01/31/19 [place] [address] [place], [place] 6165907 [phone] Primary Staff Physician Cardiology 07/15/21 Team Automobile Assembler Relationship Specialty Start Date End Date Doreen Le PA-C [address] [place] [address] PCP - General Family Practice 11/26/16 No, Referral Referring 01/31/[address] [place] [address] [facility] [place] [address] Primary Staff Physician Cardiology 07/15/21 Team Automobile Assembler Relationship Specialty Start Date End Date Doreen Le PA-C [address] [place] [address] PCP - General Family Practice 11/26/16 No, Referral Referring 01/31/19 [place] [address] [place], [place] 5928821 [phone] Primary Staff Physician Cardiology 07/15/21 Team Automobile Assembler Relationship Specialty Start Date End Date Doreen Le PA-C [address] [place], [place] [id number] PCP - General Family Practice 11/26/16 No, Referral Referring 01/31/19 [place] [address] [place], [place] 7328902 [phone] Primary Staff Physician Cardiology 07/15/21 Team Automobile Assembler Relationship Specialty Start Date End Date Doreen Le PA-C [address] [place], [place] [id number] PCP - General Family Practice 11/26/16 No, Referral Referring 01/31/19 [place] [address] [place], [place] 5581488 [phone] Primary Staff Physician Cardiology 07/15/21 Team Automobile Assembler Relationship Specialty Start Date End Date Doreen Le PA-C [address] [place] [address] PCP - General Family Practice 11/26/16 No, Referral Referring 01/31/19 [place] [address] [place] [address] Primary Staff Physician Cardiology 07/15/21 Team Automobile Assembler Relationship Specialty Start Date End Date Doreen Le PA-C [address] [place] [address] PCP - General Family Practice 11/26/16 No, Referral Referring 01/31/19 [place] [address] [place], [place] 6890752 [phone] Primary Staff Physician Cardiology 07/15/21 Team Automobile Assembler Relationship Specialty Start Date End Date Doreen Le PA-C [address] [place] [address] PCP - General Family Practice 11/26/16 No, Referral Referring 01/31/19 [place] [address] [place], [place] 8686467 [phone] Primary Staff Physician Cardiology 07/15/21 Team Automobile Assembler Relationship Specialty Start Date End Date Doreen Le PA-C [address] [place] [address] PCP - General Family Practice 11/26/16 No, Referral Referring 01/31/[address] [place] [address] [facility] [place], [place] 6774304 [phone] Primary Staff Physician Cardiology 07/15/21 Team Automobile Assembler Relationship Specialty Start Date End Date Doreen Le PA-C [address] [place] [address] PCP - General Family Practice 11/26/16 No, Referral Referring 01/31/19 [place] [address] [place], [place] 9682042 [phone] Primary Staff Physician Cardiology 07/15/21 Team Automobile Assembler Relationship Specialty Start Date End Date Doreen Le PA-C [address] [place] [address] PCP - General Family Practice 11/26/16 No, Referral Referring 01/31/[address] [place] [address] [facility] [place], [place] 9435970 [phone] Primary Staff Physician Cardiology 07/15/21 Team Automobile Assembler Relationship Specialty Start Date End Date Doreen Le PA-C [address] [place] [address] PCP - General Family Practice 11/26/16 No, Referral Referring 01/31/19 [place] [address] [place], [place] [id number] Primary Staff Physician Cardiology 07/15/21 Sheridan Cervantes RN Primary Care Metal Model Builder 02/25/22 03/27/22 Team Automobile Assembler Relationship Specialty Start Date End Date Doreen Le PA-C [address] [place] [address] PCP - General Family Practice 11/26/16 No, Referral Referring 01/31/[address] [place] [address] [facility] [place], [place] 5666726 Primary Staff Physician Cardiology 07/15/21 Sheridan Cervantes RN Primary Care Metal Model Builder 02/25/22 03/27/22 Carla Burdick MD [address] [place] [address] Cardiology 03/03/22 03/03/22 Carla Burdick MD [address] [place] [address] Primary Staff Physician Cardiology 03/03/22 Team Automobile Assembler Relationship Specialty Start Date End Date Doreen Le PA-C [address] [place] [address] PCP - General Family Practice 11/26/16 No, Referral Referring 01/31/[address] [place] [address] [facility] [place], [place] 0716526 Primary Staff Physician Cardiology 07/15/21 Sheridan Cervantes RN Primary Care Metal Model Builder 02/25/22 03/27/22 Carla Burdick MD [address] [place] [address] Cardiology 03/03/22 03/03/22 Carla Burdick MD [address] [place] [address] Primary Staff Physician Cardiology 03/03/22 Team Automobile Assembler Relationship Specialty Start Date End Date Doreen Le PA-C [address] [place] [address] PCP - General Family Practice 11/26/16 No, Referral Referring 01/31/[place] [address] [place], [place] 1948226 Primary Staff Physician Cardiology 07/15/21 Sheridan Cervantes RN Primary Care Metal Model Builder 02/25/22 03/27/22 Carla Burdick MD [address] [place] [address] Primary Staff Physician Cardiology 03/03/22 Team Automobile Assembler Relationship Specialty Start Date End Date Doreen Le PA-C [address] [place] [address] PCP - General Family Practice 11/26/16 No, Referral Referring 01/31/19 [place] [address] [place], [place] 8736026 Primary Staff Physician Cardiology 07/15/21 Sheridan Cervantes RN Primary Care Metal Model Builder 02/25/22 03/27/22 Carla Burdick MD [address] [place] [address] Primary Staff Physician Cardiology 03/03/22 Team Automobile Assembler Relationship Specialty Start Date End Date Doreen Le PA-C [address] [place] [address] PCP - General Family Practice 11/26/16 No, Referral Referring 01/31/[address] [place] [address] [facility] [place], [place] 6299926 Primary Staff Physician Cardiology 07/15/21 Sheridan Cervantes, tube maker Metal Model Builder 02/25/22 03/27/22 Carla Burdick MD [address] [facility] [place], [place] 381411 Primary Staff Physician Cardiology 03/03/22 Team Automobile Assembler Relationship Specialty Start Date End Date Doreen Le PA-C [address] [place] [address] PCP - General Family Practice 11/26/16 No, Referral Referring 01/31/19 [place] [address] [place], [place] 8422026 Primary Staff Physician Cardiology 07/15/21 Carla Burdick MD [address] [place] [address] Primary Staff Physician Cardiology 03/03/22 Team Automobile Assembler Relationship Specialty Start Date End Date Doreen Le PA-C [address] [place] [address] PCP - General Family Practice 11/26/16 No, Referral Referring 01/31/[address] [place] [address] [facility] [place], [place] 3768337 [phone] Primary Staff Physician Cardiology 07/15/21 Carla Burdick MD [address] [facility] [place] [address] Primary Staff Physician Cardiology 03/03/22 Team Automobile Assembler Relationship Specialty Start Date End Date Doreen Le PA-C [address] [place] [address] PCP - General Family Medicine 11/26/16 No, Referral Referring 01/31/19 [place] [address] [place], [place] 3883720 [phone] Primary Staff Physician Cardiology 07/15/21 Carla Burdick MD [address] [place] [address] Primary Staff Physician Cardiology 03/03/22 Team Automobile Assembler Relationship Specialty Start Date End Date Doreen Le PA-C [address] [place] [address] PCP - General Family Medicine 11/26/16 No, Referral Referring 01/31/[address] [place] [address] [facility] [place] [address] Primary Staff Physician Cardiology 07/15/21 Carla Burdick MD [address] [place] [address] Primary Staff Physician Cardiology 03/03/22 Team Automobile Assembler Relationship Specialty Start Date End Date Doreen Le PA-C [address] [place] [address] PCP - General Family Medicine 11/26/16 No, Referral Referring 01/31/[address] [place] [address] [facility] [place] [address] Primary Staff Physician Cardiology 07/15/21 Carla Burdick MD [address] [place] [address] Primary Staff Physician Cardiology 03/03/22 Team Automobile Assembler Relationship Specialty Start Date End Date Doreen Le PA-C [address] [place] [address] PCP - General Family Medicine 11/26/16 No, Referral Referring 01/31/[address] [place] [address] [facility] [place], [place] 7977244 [phone] Primary Staff Physician Cardiology 07/15/21 Carla Burdick MD [address] [place] [address] Cardiology 03/03/22 03/03/22 Carla Burdick MD [address] [place] [address] Primary Staff Physician Cardiology 03/03/22 Team Automobile Assembler Relationship Specialty Start Date End Date Doreen Le PA-C [address] [place] [address] PCP - General Family Medicine 11/26/16 No, Referral Referring 01/31/19 [place] [address] [place] [address] Primary Staff Physician Cardiology 07/15/21 Carla Burdick MD [address] [place] [address] Primary Staff Physician Cardiology 03/03/22 Team Automobile Assembler Relationship Specialty Start Date End Date Doreen Le PA-C [address] [place] [address] PCP - General Family Medicine 11/26/16 No, Referral Referring 01/31/[address] [place] [address] [facility] [place], [place] 6028596 [phone] Primary Staff Physician Cardiology 07/15/21 Carla Burdick MD [address] [facility] [place] [address] Primary Staff Physician Cardiology 03/03/22 Team Automobile Assembler Relationship Specialty Start Date End Date Doreen Le PA-C [address] [place] [address] PCP - General Family Medicine 11/26/16 No, Referral Referring 01/31/[address] [place] [address] [facility] [place], [place] 0787088 [phone] Primary Staff Physician Cardiology 07/15/21 Carla Burdick MD [address] [place] [address] Primary Staff Physician Cardiology 03/03/22 Team Automobile Assembler Relationship Specialty Start Date End Date Doreen Le PA-C [address] [place] [address] PCP - General Family Medicine 11/26/16 No, Referral Referring 01/31/[address] [place] [address] [facility] [place] [address] Primary Staff Physician Cardiology 07/15/21 Carla Burdick MD [address] [place] [address] Primary Staff Physician Cardiology 03/03/22 Team Automobile Assembler Relationship Specialty Start Date End Date Doreen Le PA-C [address] [place] [address] PCP - General Family Medicine 11/26/16 No, Referral Referring 01/31/[address] [place] [address] [facility] [place] [address] Primary Staff Physician Cardiology 07/15/21 Carla Burdick MD [address] [facility] [place] [address] Primary Staff Physician Cardiology 03/03/22 Team Automobile Assembler Relationship Specialty Start Date End Date Doreen Le PA-C [address] [facility] [place] [address] PCP - General Family Medicine 11/26/16 No, Referral Referring 01/31/19 [place] [address] [place] [address] Primary Staff Physician Cardiology 07/15/21 Carla Burdick MD [address] [facility] [place] [address] Primary Staff Physician Cardiology 03/03/22 Sonny Lund MD [address] [facility] [place] [address] Hematology/Oncology 04/22/22 Team Automobile Assembler Relationship Specialty Start Date End Date Doreen Le PA-C [address] [facility] [place] [address] PCP - General Family Medicine 11/26/16 No, Referral Referring 01/31/19 [place] [address] [place] [address] Primary Staff Physician Cardiology 07/15/21 Carla Burdick MD [address] [facility] [place] [address] Primary Staff Physician Cardiology 03/03/22 Sonny Lund MD [address] [facility] [place] [address] Hematology/Oncology 04/22/22 Team Automobile Assembler Relationship Specialty Start Date End Date Doreen Le PA-C [address] [facility] [place] [address] PCP - General Family Medicine 11/26/16 No, Referral Referring 01/31/19 [place] [address] [place] [address] Primary Staff Physician Cardiology 07/15/21 Carla Burdick MD [address] [facility] [place] [address] Primary Staff Physician Cardiology 03/03/22 Sonny Lund MD [address] [facility] [place] [address] Hematology/Oncology 04/22/22 Team Automobile Assembler Relationship Specialty Start Date End Date Doreen Le PA-C [address] [facility] [place] [address] PCP - General Family Medicine 11/26/16 No, Referral Referring 01/31/19 [place] [address] [place] [address] Primary Staff Physician Cardiology 07/15/21 Carla Burdick MD [address] [facility] [place] [address] Primary Staff Physician Cardiology 03/03/22 Sonny Lund MD [address] [facility] [place] [address] Hematology/Oncology 04/22/22 Team Automobile Assembler Relationship Specialty Start Date End Date Doreen Le PA-C [address] [facility] [place] [address] PCP - General Family Medicine 11/26/16 No, Referral Referring 01/31/19 [place] [address] [place] [address] Primary Staff Physician Cardiology 07/15/21 Carla Burdick MD [address] [facility] [place] [address] Primary Staff Physician Cardiology 03/03/22 Sonny Lund MD [address] [facility] [place] [address] Hematology/Oncology 04/22/22 Team Automobile Assembler Relationship Specialty Start Date End Date Doreen Le PA-C [address] [place] [address] PCP - General Family Medicine 11/26/16 No, Referral Referring 01/31/[address] [place] [address] [facility] [place] [address] Primary Staff Physician Cardiology 07/15/21 Carla Burdick MD [address] [facility] [place] [address] Primary Staff Physician Cardiology 03/03/22 Sonny Lund MD [address] [facility] [place] [address] Hematology/Oncology 04/22/22 Team Automobile Assembler Relationship Specialty Start Date End Date Doreen Le PA-C [address] [facility] [place] [address] PCP - General Family Medicine 11/26/16 No, Referral Referring 01/31/19 [place] [address] [place] [address] Primary Staff Physician Cardiology 07/15/21 Carla Burdick MD [address] [facility] [place] [address] Primary Staff Physician Cardiology 03/03/22 Sonny Lund MD [address] [facility] [address] Hematology/Oncology 04/22/22 Team Automobile Assembler Relationship Specialty Start Date End Date Doreen Le PA-C [address] [facility] [place] [address] PCP - General Family Medicine 11/26/16 No, Referral Referring 01/31/19 [place] [address] [place] [address] Primary Staff Physician Cardiology 07/15/21 Carla Burdick MD [address] [facility] [place] [address] Primary Staff Physician Cardiology 03/03/22 Sonny Lund MD [address] [facility] [place] [address] Hematology/Oncology 04/22/22 Team Automobile Assembler Relationship Specialty Start Date End Date Doreen Le PA-C [address] [facility] [place] [address] PCP - General Family Medicine 11/26/16 No, Referral Referring 01/31/19 [place] [address] [place] [address] Primary Staff Physician Cardiology 07/15/21 Carla Burdick MD [address] [facility] [place] [address] Primary Staff Physician Cardiology 03/03/22 Sonny Lund MD [address] [facility] [place] [address] Hematology/Oncology 04/22/22 Team Automobile Assembler Relationship Specialty Start Date End Date Doreen Le PA-C [address] [facility] [place] [address] PCP - General Family Medicine 11/26/16 No, Referral Referring 01/31/19 [place] [address] [place] [address] Primary Staff Physician Cardiology 07/15/21 Carla Burdick MD [address] [facility] [place] [address] Primary Staff Physician Cardiology 03/03/22 Sonny Lund MD [address] [facility] [place] [address] Hematology/Oncology 04/22/22 Team Automobile Assembler Relationship Specialty Start Date End Date Doreen Le PA-C [address] [facility] [place] [address] PCP - General Family Medicine 11/26/16 No, Referral Referring 01/31/19 [place] [address] [place] [address] Primary Staff Physician Cardiology 07/15/21 Carla Burdick MD [address] [facility] [place] [address] Primary Staff Physician Cardiology 03/03/22 Sonny Lund MD [address] [facility] [place] [address] Hematology/Oncology 04/22/22 Team Automobile Assembler Relationship Specialty Start Date End Date Doreen Le PA-C [address] [facility] [place] [address] PCP - General Family Medicine 11/26/16 No, Referral Referring 01/31/[address] [place] [address] [facility] [place] [address] Primary Staff Physician Cardiology 07/15/21 Carla Burdick MD [address] [facility] [place] [address] Primary Staff Physician Cardiology 03/03/22 Sonny Lund MD [address] [facility] [place] [address] Hematology/Oncology 04/22/22 Team Automobile Assembler Relationship Specialty Start Date End Date Doreen Le PA-C [address] [facility] [place] [address] PCP - General Family Medicine 11/26/16 No, Referral Referring 01/31/19 [place] [address] [place] [address] Primary Staff Physician Cardiology 07/15/21 Carla Burdick MD [address] [facility] [place] [address] Primary Staff Physician Cardiology 03/03/22 Sonny Lund MD [address] [facility] [place] [address] Hematology/Oncology 04/22/22 Team Automobile Assembler Relationship Specialty Start Date End Date Doreen Le PA-C [address] [facility] [place] [address] PCP - General Family Medicine 11/26/16 No, Referral Referring 01/31/19 [place] [address] [place] [address] Primary Staff Physician Cardiology 07/15/21 Carla Burdick MD [address] [facility] [place] [address] Primary Staff Physician Cardiology 03/03/22 Sonny Lund MD [address] [place], [place] 831351 Hematology/Oncology 04/22/22 Team Automobile Assembler Relationship Specialty Start Date End Date Doreen Le PA-C [address] [place] [address] PCP - General Family Medicine 11/26/16 No, Referral Referring 01/31/19 [place] [address] [place], [place] 1445526 Primary Staff Physician Cardiology 07/15/21 Carla Burdick MD [address] [place] [address] Primary Staff Physician Cardiology 03/03/22 Sonny Lund MD [address] [place] [address] Hematology/Oncology 04/22/22 Team Automobile Assembler Relationship Specialty Start Date End Date Doreen Le PA-C [address] [place] [address] PCP - General Family Medicine 11/26/16 No, Referral Referring 01/31/19 [place] [address] [place], [place] 6179126 Primary Staff Physician Cardiology 07/15/21 Carla Burdick MD [address] [place] [place], [place] 006[address] Primary Staff Physician Cardiology 03/03/22 Sonny Lund MD [address] [facility] [place], [place] 74[address] Hematology/Oncology 04/22/22 Team Automobile Assembler Relationship Specialty Start Date End Date Doreen Le PA-C [address] [place], [place] 847741 PCP - General Family Medicine 11/26/16 No, Referral Referring 01/31/[address] [place] [address] [facility] [place], [place] 9688126 Primary Staff Physician Cardiology 07/15/21 Carla Burdick MD [address] [place] [address] Primary Staff Physician Cardiology 03/03/22 Sonny Lund MD [address] [place], [place] 342131 Hematology/Oncology 04/22/22 Team Automobile Assembler Relationship Specialty Start Date End Date Doreen Le PA-C [address] [place] [address] PCP - General Family Medicine 11/26/16 No, Referral Referring 01/31/19 [place] [address] [place], [place] 0253526 Primary Staff Physician Cardiology 07/15/21 Carla Burdick MD [address] [facility] [place], [place] 653961 Primary Staff Physician Cardiology 03/03/22 Sonny Lund MD [address] [facility] [place], [place] 938141 Hematology/Oncology 04/22/22 Team Automobile Assembler Relationship Specialty Start Date End Date Doreen Le PA-C [address] [place], [place] 530961 PCP - General Family Medicine 11/26/16 No, Referral Referring 01/31/19 [place] [address] [place], [place] [id number] Primary Staff Physician Cardiology 07/15/21 Carla Burdick MD [address] [place], [place] 055601 Primary Staff Physician Cardiology 03/03/22 Sonny Lund MD [address] [place], [place] 801601 Hematology/Oncology 04/22/22 Team Automobile Assembler Relationship Specialty Start Date End Date Doreen Le PA-C [address] [place] [address] PCP - General Family Medicine 11/26/16 No, Referral Referring 01/31/19 [place] [address] [place], [place] 8131526 Primary Staff Physician Cardiology 07/15/21 Carla Burdick MD [address] [facility] [place], [place] 070391 Primary Staff Physician Cardiology 03/03/22 Sonny Lund MD [address] [place] [place], [place] [address] Hematology/Oncology 04/22/22 Team Automobile Assembler Relationship Specialty Start Date End Date Doreen Le PA-C [address] [place], [place] 759591 PCP - General Family Medicine 11/26/16 No, Referral Referring 01/31/19 [place] [address] [place] [address] Primary Staff Physician Cardiology 07/15/21 Carla Burdick MD [address] [place], [place] 548451 Primary Staff Physician Cardiology 03/03/22 Sonny Lund MD [address] [facility], [place] 9[address]71 Hematology/Oncology 04/22/22 Team Automobile Assembler Relationship Specialty Start Date End Date Doreen Le PA-C [address] [place], [place] 844311 PCP - General Family Medicine 11/26/16 No, Referral Referring 01/31/19 [place] [address] [place] [address] Primary Staff Physician Cardiology 07/15/21 Carla Burdick MD [address] [place], [place] 980161 Primary Staff Physician Cardiology 03/03/22 Sonny Lund MD [address] [place], [place] 9[address]31 Hematology/Oncology 04/22/22 Team Automobile Assembler Relationship Specialty Start Date End Date Doreen Le PA-C [address] [place], [place] 920791 PCP - General Family Medicine 11/26/16 No, Referral Referring 01/31/19 [place] [address] [place] [address] Primary Staff Physician Cardiology 07/15/21 Carla Burdick MD [address] [place], [place] 683161 Primary Staff Physician Cardiology 03/03/22 Sonny Lund MD [address] [place] [place], [place] 8[address]11 Hematology/Oncology 04/22/22 Team Automobile Assembler Relationship Specialty Start Date End Date Doreen Le PA-C [address] [place], [place] 709081 PCP - General Family Medicine 11/26/16 No, Referral Referring 01/31/19 [place] [address] [place], [place] 3217026 Primary Staff Physician Cardiology 07/15/21 Carla Burdick MD [address] [place] [address] Primary Staff Physician Cardiology 03/03/22 Sonny Lund MD [address] [facility] [place], [place] 75[address]81 Hematology/Oncology 04/22/22 Team Automobile Assembler Relationship Specialty Start Date End Date Doreen Le PA-C [address] [place], [place] 841021 PCP - General Family Medicine 11/26/16 No, Referral Referring 01/31/19 [place] [address] [place], [place] 8238326 Primary Staff Physician Cardiology 07/15/21 Carla Burdick MD [address] [place], [place] 139721 Primary Staff Physician Cardiology 03/03/22 Sonny Lund MD [address] [place], [place] 798131 Hematology/Oncology 04/22/22 Team Automobile Assembler Relationship Specialty Start Date End Date Doreen Le PA-C [address] [place] [address] PCP - General Family Medicine 11/26/16 No, Referral Referring 01/31/19 [place] [address] [place], [place] 6148826 Primary Staff Physician Cardiology 07/15/21 Carla Burdick MD [address] [facility] [place] 94[address]41 Primary Staff Physician Cardiology 03/03/22 Sonny Lund MD [address] [place] [address] Hematology/Oncology 04/22/22 Team Automobile Assembler Relationship Specialty Start Date End Date Doreen Le PA-C [address] [place] [address] PCP - General Family Medicine 11/26/16 No, Referral Referring 01/31/19 [place] [address] [place], [place] 7343626 Primary Staff Physician Cardiology 07/15/21 Carla Burdick MD [address] [place], [place] 847941 Primary Staff Physician Cardiology 03/03/22 Sonny Lund MD [address] [facility] [place] [address] Hematology/Oncology 04/22/22 Team Automobile Assembler Relationship Specialty Start Date End Date Doreen Le PA-C [address] [place] [address] PCP - General Family Medicine 11/26/16 No, Referral Referring 01/31/19 [place] [address] [place], [place] 4524626 Primary Staff Physician Cardiology 07/15/21 Carla Burdick MD [address] [facility] [place] [address] Primary Staff Physician Cardiology 03/03/22 Sonny Lund MD [address] [facility] [place], [place] 89[address]01 Hematology/Oncology 04/22/22 Team Automobile Assembler Relationship Specialty Start Date End Date Doreen Le PA-C [address] [place], [place] 546661 PCP - General Family Medicine 11/26/16 No, Referral Referring 01/31/19 [place] [address] [place] [address] Primary Staff Physician Cardiology 07/15/21 Carla Burdick MD [address] [place], [place] 0[address]01 Primary Staff Physician Cardiology 03/03/22 Sonny Lund MD [address] [facility] [place] [address] Hematology/Oncology 04/22/22 Team Automobile Assembler Relationship Specialty Start Date End Date Doreen Le PA-C [address] [place] [address] PCP - General Family Medicine 11/26/16 No, Referral Referring 01/31/19 [place] [address] [place], [place] 8086626 Primary Staff Physician Cardiology 07/15/21 Carla Burdick MD [address] [facility] [place] 6[address]11 Primary Staff Physician Cardiology 03/03/22 Sonny Lund MD [address] [facility] [place] [address] Hematology/Oncology 04/22/22 Team Automobile Assembler Relationship Specialty Start Date End Date Doreen Le PA-C [address] [place] [address] PCP - General Family Medicine 11/26/16 No, Referral Referring 01/31/19 [place] [address] [place], [place] 3086826 Primary Staff Physician Cardiology 07/15/21 Carla Burdick MD [address] [place], [place] 127671 Primary Staff Physician Cardiology 03/03/22 Sonny Lund MD [address] [place] [address] Hematology/Oncology 04/22/22 Team Automobile Assembler Relationship Specialty Start Date End Date Doreen Le PA-C [address] [place] [address] PCP - General Family Medicine 11/26/16 No, Referral Referring 01/31/19 [place] [address] [place], [place] 0552926 Primary Staff Physician Cardiology 07/15/21 Carla Burdick MD [address] [facility] [place] 83905691 Primary Staff Physician Cardiology 03/03/22 Sonny Lund MD [address] [facility] [place] 301481 Hematology/Oncology 04/22/22 Team Automobile Assembler Relationship Specialty Start Date End Date Doreen Le PA-C [address] [place], [place] 821081 PCP - General Family Medicine 11/26/16 No, Referral Referring 01/31/19 [place] [address] [place], [place] 3272926 Primary Staff Physician Cardiology 07/15/21 Carla Burdick MD [address] [place], [place] 778221 Primary Staff Physician Cardiology 03/03/22 Sonny Lund MD [address] [place], [place] 256811 Hematology/Oncology 04/22/22 Team Automobile Assembler Relationship Specialty Start Date End Date Doreen Le PA-C [address] [place] [address] PCP - General Family Medicine 11/26/16 No, Referral Referring 01/31/19 [place] [address] [place], [place] 3332826 Primary Staff Physician Cardiology 07/15/21 Carla Burdick MD [address] [place], [place] 81539691 Primary Staff Physician Cardiology 03/03/22 Sonny Lund MD [address] [place] 191531 Hematology/Oncology 04/22/22 Team Automobile Assembler Relationship Specialty Start Date End Date Doreen Le PA-C [address] [place] [address] PCP - General Family Medicine 11/26/16 No, Referral Referring 01/31/19 [place] [address] [place], [place] 8798126 Primary Staff Physician Cardiology 07/15/21 Carla Burdick MD [address] [place], [place] 142191 Primary Staff Physician Cardiology 03/03/22 Sonny Lund MD [address] [place] [address] Hematology/Oncology 04/22/22 Team Automobile Assembler Relationship Specialty Start Date End Date Doreen Le PA-C [address] [place] [address] PCP - General Family Medicine 11/26/16 No, Referral Referring 01/31/19 [place] [address] [place], [place] 2267326 Primary Staff Physician Cardiology 07/15/21 Carla Burdick MD [address] [place], [place] 712431 Primary Staff Physician Cardiology 03/03/22 Sonny Lund MD [address] [facility] [place] 515621 Hematology/Oncology 04/22/22 Team Automobile Assembler Relationship Specialty Start Date End Date Doreen Le PA-C [address] [place], [place] 488841 PCP - General Family Medicine 11/26/16 No, Referral Referring 01/31/19 [place] [address] [place], [place] 8810026 Primary Staff Physician Cardiology 07/15/21 Carla Burdick MD [address] [place], [place] 807621 Primary Staff Physician Cardiology 03/03/22 Sonny Lund MD [address] [place], [place] 970811 Hematology/Oncology 04/22/22 Team Automobile Assembler Relationship Specialty Start Date End Date Doreen Le PA-C [address] [place] [address] PCP - General Family Medicine 11/26/16 No, Referral Referring 01/31/19 [place] [address] [place], [place] 2277326 Primary Staff Physician Cardiology 07/15/21 Carla Burdick MD [address] [place], [place] 331511 Primary Staff Physician Cardiology 03/03/22 Sonny Lund MD [address] [facility] [place] [address] Hematology/Oncology 04/22/22 Team Automobile Assembler Relationship Specialty Start Date End Date Doreen Le PA-C [address] [place], [place] 804411 PCP - General Family Medicine 11/26/16 No, Referral Referring 01/31/19 [place] [address] [place], [place] 3748826 Primary Staff Physician Cardiology 07/15/21 Carla Burdick MD [address] [place], [place] 828731 Primary Staff Physician Cardiology 03/03/22 Sonny Lund MD [address] [place], [place] 875261 Hematology/Oncology 04/22/22 Team Automobile Assembler Relationship Specialty Start Date End Date Doreen Le PA-C [address] [place] [address] PCP - General Family Medicine 11/26/16 No, Referral Referring 01/31/19 [place] [address] [place], [place] 3182426 Primary Staff Physician Cardiology 07/15/21 Carla Burdick MD [address] [place], [place] 142221 Primary Staff Physician Cardiology 03/03/22 Sonny Lund MD [address] [facility] [place] 007371 Hematology/Oncology 04/22/22 Team Automobile Assembler Relationship Specialty Start Date End Date Doreen Le PA-C [address] [place], [place] 078431 PCP - General Family Medicine 11/26/16 No, Referral Referring 01/31/19 [place] [address] [place], [place] 7771726 Primary Staff Physician Cardiology 07/15/21 Carla Burdick MD [address] [place], [place] 654921 Primary Staff Physician Cardiology 03/03/22 Sonny Lund MD [address] [place], [place] 306011 Hematology/Oncology 04/22/22 Team Automobile Assembler Relationship Specialty Start Date End Date Doreen Le PA-C [address] [place], [place] 179921 PCP - General Family Medicine 11/26/16 No, Referral Referring 01/31/[place] [address] [place], [place] 6114926 Primary Staff Physician Cardiology 07/15/21 Carla Burdick MD [address] [facility] [place] 0[address]181 Primary Staff Physician Cardiology 03/03/22 Sonny Lund MD [address] [place], [place] 159101 Hematology/Oncology 04/22/22 Team Automobile Assembler Relationship Specialty Start Date End Date Doreen Le PA-C [address] [place], [place] 921381 PCP - General Family Medicine 11/26/16 No, Referral Referring 01/31/[place] [address] [place] [address] Primary Staff Physician Cardiology 07/15/21 Carla Burdick MD [address] [place], [place] 365801 Primary Staff Physician Cardiology 03/03/22 Sonny Lund MD [address] [place], [place] 835271 Hematology/Oncology 04/22/22 Team Automobile Assembler Relationship Specialty Start Date End Date Doreen Le PA-C [address] [place], [place] 609481 PCP - General Family Medicine 11/26/16 No, Referral Referring 01/31/19 [place] [address] [place], [place] 4523826 Primary Staff Physician Cardiology 07/15/21 Carla Burdick MD [address] [place], [place] 363701 Primary Staff Physician Cardiology 03/03/22 Sonny Lund MD [address] [place] [address] Hematology/Oncology 04/22/22 Team Automobile Assembler Relationship Specialty Start Date End Date Doreen Le PA-C [address] [place], [place] 585921 PCP - General Family Medicine 11/26/16 No, Referral Referring 01/31/19 [place] [address] [place], [place] 9158226 Primary Staff Physician Cardiology 07/15/21 Team Automobile Assembler Relationship Specialty Start Date End Date Doreen Le PA-C [address] [place], [place] 175591 PCP - General Family Medicine 11/26/16 No, Referral Referring 01/31/[address] [place] [address] [facility] [place], [place] 5335426 Primary Staff Physician Cardiology 07/15/21 Carla Burdick MD [address] [place] [address] Primary Staff Physician Cardiology 03/03/22 Sonny Lund MD [address] [place] [address] Hematology/Oncology 04/22/22 Team Automobile Assembler Relationship Specialty Start Date End Date Dianne Le PA-C PCP - General Family Medicine 11/26/16 No, Referral Referring 01/31/19 [place] [address] [place] [address] Primary Staff Physician Cardiology 07/15/21 Carla Burdick MD [address] [place], [place] 407751 Primary Staff Physician Cardiology 03/03/22 Sonny Lund MD [address] [place] [address] Hematology/Oncology 04/22/22 Deysi Collazo APRN.GRAVEDIGGER [address] [facility] [place] [address] Pot Press Operator Family Medicine 06/09/24 Sandra Bell APRN.GRAVEDIGGER [address] [place] [address] Pot Press Operator [facility] 06/09/24 Team Automobile Assembler Relationship Specialty Start Date End Date No, Referral Referring 01/31/19 [place] [address] [place] [address] Primary Staff Physician Cardiology 07/15/21 Carla Burdick MD [address] [place] [address] Primary Staff Physician Cardiology 03/03/22 Sonny Lund MD [address] [place], [place] 992711 Hematology/Oncology 04/22/22 Deysi Collazo APRN.GRAVEDIGGER [address] [place], [place] 125526 [phone] [facility] 06/09/24 Sandra Bell OPTICAL MANAGER.GRAVEDIGGER [address] [place], [place] 269301 [facility] 06/09/24 Team Automobile Assembler Relationship Specialty Start Date End Date Deysi Collazo, OPTICAL MANAGER.GRAVEDIGGER [address] [place] [address] PCP - General Family Medicine 07/07/24 No, Referral Referring 01/31/19 [place] [address] [place] [address] Primary Staff Physician Cardiology 07/15/21 Carla Burdick MD [address] [place] [address] Primary Staff Physician Cardiology 03/03/22 Sonny Lund MD [address] [facility] [place] [address] Hematology/Oncology 04/22/22 Deysi Collazo APRN.GRAVEDIGGER [address] [place] [address] [facility] 06/09/24 Sandra Bell OPTICAL MANAGER.GRAVEDIGGER [address] [place] [address] [facility] 06/09/24 Team Automobile Assembler Relationship Specialty Start Date End Date Deysi Collazo OPTICAL MANAGER.GRAVEDIGGER [address] [place] [address] PCP - General Family Medicine 07/07/24 No, Referral Referring 01/31/19 [place] [address] [place] [place], [place] 9987526 Primary Staff Physician Cardiology 07/15/21 Carla Burdick MD [address] [facility] [place] 850661 Primary Staff Physician Cardiology 03/03/22 Sonny Lund MD [address] [facility] [place] 477[address] Hematology/Oncology 04/22/22 Deysi Collazo APRN.GRAVEDIGGER [address] [place], [place] 161281 Pot Press Operator [facility] 06/09/24 Sandra Bell OPTICAL MANAGER.GRAVEDIGGER [address] [place], [place] 206311 [facility] 06/09/24 Team Automobile Assembler Relationship Specialty Start Date End Date Deysi Collazo APRN.GRAVEDIGGER [address] [place], [place] 506491 PCP - General Family Medicine 07/07/24 No, Referral Referring 01/31/[place] [address] [place] [address] Primary Staff Physician Cardiology 07/15/21 Carla Burdick MD [address] [place] [place], [place] 579371 Primary Staff Physician Cardiology 03/03/22 Sonny Lund MD [address] [place], [place] 079751 Hematology/Oncology 04/22/22 Deysi Collazo APRN.GRAVEDIGGER [address] [facility] [place] [address] [facility] 06/09/24 Sandra Bell APRN.GRAVEDIGGER [address] [facility] [place] [address] [facility] 06/09/24 Team Automobile Assembler Relationship Specialty Start Date End Date Deysi Collazo APRN.GRAVEDIGGER [address] [place] [address] PCP - General Family Medicine 07/07/24 No, Referral Referring 01/31/19 [place] [address] [place], [place] 7879626 Primary Staff Physician Cardiology 07/15/21 Carla Burdick MD [address] [place] [address] Primary Staff Physician Cardiology 03/03/22 Sonny Lund MD [address] [place] [address] Hematology/Oncology 04/22/22 Deysi Collazo APRN.GRAVEDIGGER [address] [facility] [place] [address] [facility] 06/09/24 Sandra Bell APRN.GRAVEDIGGER [address] [place] [address] Pot Press Operator Family [facility] 06/09/24 Team Automobile Assembler Relationship Specialty Start Date End Date Deysi Collazo APRN.GRAVEDIGGER [address] [place] [address] PCP - General Family Medicine 07/07/24 No, Referral Referring 01/31/19 [place] [address] [place], [place] 4544126 Primary Staff Physician Cardiology 07/15/21 Carla Burdick MD [address] [facility] [place] [address] Primary Staff Physician Cardiology 03/03/22 Sonny Lund MD [address] [place] [address] Hematology/Oncology 04/22/22 Deysi Collazo APRN.GRAVEDIGGER [address] [place] [address] Pot Press Operator [facility] 06/09/24 Sandra Bell APRN.GRAVEDIGGER [address] [place] [address] Pot Press Operator [facility] 06/09/24 Team Automobile Assembler Relationship Specialty Start Date End Date Deysi Collazo APRN.GRAVEDIGGER [address] [place] [address] PCP - General Family Medicine 07/07/24 No, Referral Referring 01/31/[place] [address] [place], [place] 5170426 Primary Staff Physician Cardiology 07/15/21 Carla Burdick MD [address] [place], [place] 993381 Primary Staff Physician Cardiology 03/03/22 Sonny Lund MD [address] [place] [address] Hematology/Oncology 04/22/22 Deysi Collazo APRN.GRAVEDIGGER [address] [place] [address] Pot Press Operator Family [facility] 06/09/24 Sandra Bell OPTICAL MANAGER.GRAVEDIGGER [address] [place] [address] Pot Press Operator Family Medicine 06/09/24 Team Automobile Assembler Relationship Specialty Start Date End Date Deysi Collazo APRN.GRAVEDIGGER [address] [place], [place] 626591 PCP - General Family Medicine 07/07/24 No, Referral Referring 01/31/19 [place] [address] [place] [address] Primary Staff Physician Cardiology 07/15/21 Carla Burdick MD [address] [place] [address] Primary Staff Physician Cardiology 03/03/22 Sonny Lund MD [address] [place] [address] Hematology/Oncology 04/22/22 Deysi Collazo APRN.GRAVEDIGGER [address] [place] [address] Pot Press Operator Family Medicine 06/09/24 Sandra Bell OPTICAL MANAGER.GRAVEDIGGER [address] [place] [address] [facility] 06/09/24 Team Automobile Assembler Relationship Specialty Start Date End Date Deysi Collazo APRN.GRAVEDIGGER [address] [place] [address] PCP - General Family Medicine 07/07/24 No, Referral Referring 01/31/[place] [address] [place], [place] 2017626 Primary Staff Physician Cardiology 07/15/21 Carla Burdick MD [address] [place] [address] Primary Staff Physician Cardiology 03/03/22 Sonny Lund MD [address] [place] [address] Hematology/Oncology 04/22/22 Deysi Collazo APRN.GRAVEDIGGER [address] [place] [address] Pot Press Operator [facility] 06/09/24 Sandra Bell OPTICAL MANAGER.GRAVEDIGGER [address] [place], [place] 81965071 [phone] [facility] 06/09/24 Team Automobile Assembler Relationship Specialty Start Date End Date Deysi Collazo, OPTICAL MANAGER.GRAVEDIGGER [address] [place], [place] 633671 PCP - General Family Medicine 07/07/24 No, Referral Referring 01/31/19 [place] [address] [place] [address] Primary Staff Physician Cardiology 07/15/21 Carla Burdick MD [address] [place], [place] 40890691 Primary Staff Physician Cardiology 03/03/22 Sonny Lund MD [address] [place] [address] Hematology/Oncology 04/22/22 Deysi Collazo, OPTICAL MANAGER.GRAVEDIGGER [address] [place] [address] [facility] 06/09/24 Sandra Bell, OPTICAL MANAGER.GRAVEDIGGER [address] [place], [place] 952471 [facility] 06/09/24 Team Automobile Assembler Relationship Specialty Start Date End Date Deysi Collazo, OPTICAL MANAGER.GRAVEDIGGER [address] [place], [place] 039582 [phone] PCP - General Family Medicine 07/07/24 No, Referral Referring 01/31/19 [place] [address] [place], [place] 6539726 Primary Staff Physician Cardiology 07/15/21 Carla Burdick MD [address] [address] Primary Staff Physician Cardiology 03/03/22 Sonny Lund MD [address] [place] [address] Hematology/Oncology 04/22/22 Deysi Collazo OPTICAL MANAGER.GRAVEDIGGER [address] [place] [address] [facility] 06/09/24 Sandra Bell OPTICAL MANAGER.GRAVEDIGGER [address] [place] [address] [facility] 06/09/24 Team Automobile Assembler Relationship Specialty Start Date End Date Deysi Collazo APRN.GRAVEDIGGER [address] [place] [address] PCP - General Family Medicine 07/07/24 No, Referral Referring 01/31/19 [place] [address] [place] [address] Primary Staff Physician Cardiology 07/15/21 Carla Burdick MD [address] [place] [address] Primary Staff Physician Cardiology 03/03/22 Sonny Lund MD [address] [place] [address] Hematology/Oncology 04/22/22 Deysi Collazo, OPTICAL MANAGER.GRAVEDIGGER [address] [place] [address] Pot Press Operator Family Medicine 06/09/24 Sandra Bell APRN.GRAVEDIGGER [address] [place] [address] Pot Press Operator Family Medicine 06/09/24 Team Automobile Assembler Relationship Specialty Start Date End Date Deysi Collazo APRN.GRAVEDIGGER [address] [place] [address] PCP - General Family Medicine 07/07/24 No, Referral Referring 01/31/19 [place] [address] [place], [place] 4352426 Primary Staff Physician Cardiology 07/15/21 Carla Burdick MD [address] [place] [address] Primary Staff Physician Cardiology 03/03/22 Deysi Collazo APRN.GRAVEDIGGER [address] [place] [address] Pot Press Operator Family Medicine 06/09/24 Sandra Bell APRN.GRAVEDIGGER [address] [place] [address] Pot Press Operator [facility] 06/09/24 Team Automobile Assembler Relationship Specialty Start Date End Date Deysi Collazo APRN.GRAVEDIGGER [address] [place] [address] PCP - General Family Medicine 07/07/24 No, Referral Referring 01/31/[place] [address] [place], [place] 5903826 Primary Staff Physician Cardiology 07/15/21 Carla Burdick MD [address] [place] 93[address] [phone] Primary Staff Physician Cardiology 03/03/22 Deysi Collazo APRN.GRAVEDIGGER [address] [place] [address] Pot Press Operator Family [facility] 06/09/24 Sandra Bell APRN.GRAVEDIGGER [address] [place] [address] [facility] 06/09/24 Team Automobile Assembler Relationship Specialty Start Date End Date Deysi Collazo APRN.GRAVEDIGGER [address] [place] [address] PCP - General Family Medicine 07/07/24 No, Referral Referring 01/31/19 [place] [address] [place], [place] 9510926 Primary Staff Physician Cardiology 07/15/21 Carla Burdick MD [address] [place], [place] 393483 [phone] Primary Staff Physician Cardiology 03/03/22 Deysi Collazo APRN.GRAVEDIGGER [address] [place] [address] [facility] 06/09/24 Sandra Bell OPTICAL MANAGER.GRAVEDIGGER [address] [place] [address] [facility] 06/09/24 Team Automobile Assembler Relationship Specialty Start Date End Date Deysi Collazo APRN.GRAVEDIGGER [address] [place] [address] PCP - General Family Medicine 07/07/24 No, Referral Referring 01/31/19 [place] [address] [place], [place] 9311526 Primary Staff Physician Cardiology 07/15/21 Carla Burdick MD [address] [place] [address] Primary Staff Physician Cardiology 03/03/22 Deysi Collazo APRN.GRAVEDIGGER [address] [place] [address] [facility] 06/09/24 Sandra Bell APRN.GRAVEDIGGER [address] [place] [address] [facility] 06/09/24 Team Status: Active Member Role/Relationship Status Dates Deysi Collazo FOUNDRY WORKER, FOUNDRY WORKER-C Primary Care Provider Active Team Status: Active Member Role/Relationship Status Dates Deysi Collazo FOUNDRY WORKER, FOUNDRY WORKER-C Primary Care Provider Active Start: January 07, 2025 Dr. Luis Armando Harry MD Emergency Provider Active Sta rt: January 07, 2025 Dr. Radha Heller MD Admit Provider Active Star t: January 07, 2025 Dr. Radha Heller MD Attending Provider Active Start: January 07, 2025 Team Status: Inactive Member Role/Relationship Status Dates Deysi Collazo FOUNDRY WORKER, FOUNDRY WORKER-C Primary Care Provider Active Start: January 07, [...] Active Member Role/Relationship Status Dates Deysi Collazo FOUNDRY WORKER, FOUNDRY WORKER-C Primary Care Provider Active Start: January 08, 2025 Dr. Abundio Turcios MD Attending Provider Active S tart: January 08, 2025 Team Status: Active Member Role/Relationship Status Dates Deysi Collazo FOUNDRY WORKER, FOUNDRY WORKER-C Primary Care Provider Active Start: January 08, 2025 Dr. Yaniv Masters MD Attending Provider Active S tart: January 08, 2025 Team Status: Active Member Role/Relationship Status Dates Deysi Collazo FOUNDRY WORKER, FOUNDRY WORKER-C Primary Care Provider Active Start: January 08, [...] Active Member Role/Relationship Status Dates Deysi Collazo FOUNDRY WORKER, FOUNDRY WORKER-C Primary Care Provider Active Start: January 09, [...] Active Member Role/Relationship Status Dates Deysi Collazo FOUNDRY WORKER, FOUNDRY WORKER-C Primary Care Provider Active Start: January 10, [...] Active Member Role/Relationship Status Dates Deysi Collazo FOUNDRY WORKER, FOUNDRY WORKER-C Primary Care Provider Active Start: January 11, [...] 23, 2025 End: January 23, 2025 Team Automobile Assembler Relationship Specialty Start Date End Date Deysi Collazo APRN.GRAVEDIGGER [address] [place], [place] 332601 PCP - General Family Medicine 07/07/24 No, Referral Referring 01/31/19 [place] [address] [place], [place] [id number] Primary Staff Physician Cardiology 07/15/21 Carla Burdick MD [address] [place], [place] [address] Primary Staff Physician Cardiology 03/03/22 Deysi Collazo APRN.GRAVEDIGGER [address] [place], [place] [id number] Pot Press Operator Family Medicine 06/09/24 Sandra Bell APRN.GRAVEDIGGER [address] [place] [address] Pot Press Operator Family Medicine 06/09/24 Team Status: Active Member Role/Relationship Status Dates Deysi Collazo FOUNDRY WORKER, FOUNDRY WORKER-C Primary Care Provider Active Start: January 08, [...] 13, 2025 End: February 13, 2025 Team Automobile Assembler Relationship Specialty Start Date End Date Deysi Collazo APRN.GRAVEDIGGER [address] [place], [place] [id number] PCP - General Family Medicine 07/07/24 No, Referral Referring 01/31/19 [place] [address] [address] [place], [place] [id number] Primary Staff Physician Cardiology 07/15/21 Carla Burdick MD [address] [place], [place] [id number] Primary Staff Physician Cardiology 03/03/22 Deysi Collazo APRN.GRAVEDIGGER [address] [facility] [place] [address] Pot Press Operator [facility] 06/09/24 Sandra Bell APRN.GRAVEDIGGER [address] [facility] [place] [address] Pot Press Operator [facility] 06/09/24 Team Status: Inactive Member Role/Relationship Status Dates Dr. Vincent Flores MD Primary Care Provider Active Start: February 16, 2025 End: February 16, 2025 Dr. Magdy aPng MD Attending Provider Active S tart: February [...] Inactive Member Role/Relationship Status Dates Deysi Collazo FOUNDRY WORKER, FOUNDRY WORKER-C Primary care physician Active Start: January 07, [...] Active Member Role/Relationship Status Dates Deysi Collazo FOUNDRY WORKER, FOUNDRY WORKER-C Primary care physician Active Start: January 08, 2025 Dr. Abundio Turcios MD Attending physician Active Start: January 08, 2025 Dr. Carla Ha DO Referring Provider Active Start: January 08, 2025 Team Status: Active Member Role/Relationship Status Dates Deysi Collazo FOUNDRY WORKER, FOUNDRY WORKER-C Primary care physician Active Start: January 08, 2025 Dr. Yaniv Masters MD Attending physician Active Start: January 08, 2025 Team Status: Active Member Role/Relationship Status Dates Deysi Hadon FOUNDRY WORKER, FOUNDRY WORKER-C Primary care physician Active Start: January 08, [...] Status: Active Member Role/Relationship Status Dates Deysi Collzao FOUNDRY WORKER, FOUNDRY WORKER-C Primary care physician Active Start: January 09, [...] Active Member Role/Relationship Status Dates Deysi Collazo FOUNDRY WORKER, FOUNDRY WORKER-C Primary care physician Active Start: January 10, [...] Member Role/Relationship Status Dates Deysi Collazo NP, FOUNDRY WORKER-C Primary care physician Active Start: January 11, [...] End: February 05, 2025 Dr. Juan Diego Hunyh MD Attending physician Active Start: February 05, [...] Active Member Role/Relationship Status Dates Deysi Collazo FOUNDRY WORKER, FOUNDRY WORKER-C Primary care physician Active Start: January 11, [...] 2025 End: May 07, 2025 Cookie Bowman FOUNDRY WORKER, FOUNDRY WORKER-C Attending physician Active Start: May 07, 2025 [...] 2025 End: May 07, 2025 Cookie Bowman FOUNDRY WORKER, FOUNDRY WORKER-C Attending physician Active Start: May 07, 2025 [...] BE BASED ON THE PRIMARY CLINICAL RECORDS. [facility] [employer] [facility]. provides no warranty or guarantee of the accuracy or completeness of information in this document.
[2025-06-17] MEDS: Lactated Ringers 500 ML 999 ML IV (19:02)
--- NOTE | 2025-06-17 19:24 | PN.HOSP_ITS ---
Hospitalist Note Patient hypotensive, administered very judicious amount of IV fluids given concern for heart failure overload potential, remains hypotensive, SBP 83, lactic 3.1, hypothermic with axillary temperature 93. Suspect patient unfortunately progressing to potentially septic shock. Will transition patient to the ICU, continue judicious fluid administration less than 30 cc/kg given concern for overload high risk, initiate norepinephrine, PICC line, generator operator consultation. Bld Cx just obtained at 18:16 thus will not repeat. LA trending per facility protocol. Sepsis Attestation Sepsis Alert: Yes Sepsis Attestation: Agree w/Sepsis Date exam was performed: 06/17/25 Time exam was performed: 16:17 Possible Source of Sepsis: Bone/joint and Skin/soft tissue Sepsis Organ Dysfunction Criteria Present: SBP < 90 mmHg or MAP < 65 mmHg, Lactic Acid > 2 mmol/L and None (Hypothermic, leukocytosis with left shift.) Fluid Resuscitation Fluid resuscitation indicated?: Yes Fluid Resuscitation ordered: Lesser volume fluid bolus ordered Amount of fluid ordered: 1,500 Reason for lesser fluid bolus:: Heart failure Sepsis Note Date exam was performed: 06/17/25 Time exam was performed: 19:27 Sepsis Attestation: Sepsis re-evaluation was performed Response to fluids: Non Fluid responsive hypotension and Vasopressors started
[2025-06-17 21:09] LABS: Reflex Lactate? Y
[2025-06-17] MEDS: 0.9% Saline Lock 10 ML Syringe IV ×2 (21:58→23:22)
[2025-06-17] MEDS: Norepinephrine 8 MG in 0.9% Normal Saline (250mL Bag) 242 ML 9.4 MG CONT INF (22:00)
[2025-06-17] MEDS: Heparin Injection (Vial) 5,000 UNIT/ML VIAL 5000 UNIT SC (22:50)
[2025-06-17] MEDS: Vancomycin HCl 1,000 MG in 0.9% Normal Saline (250mL Bag) 250 ML 250 MG IV (22:54)
[2025-06-17] MEDS: 0.9% Normal Saline (250mL Bag) 250 ML 15 ML IV (23:23)
[2025-06-17] MEDS: Piperacil/Tazobactam 3.375 GM in 0.9% Normal Saline (50mL MB+) 50 ML IV (23:23)
[2025-06-18] VITALS (32 sets, daily range): BP systolic 88–128; BP diastolic 41–77; PULSE 61–106; RESP 10–26; TEMP 36.4–37.1; O2SAT 92–99; BMI 28.3
--- NOTE | 2025-06-18 02:47 | PCM.RX.CS ---
Consult Antibiotic Management Pharmacy has been consulted to manage selected antibiotic: Vancomycin Type of Intervention Type of Consult: New start Labs Labs: Sodium 134 mmol/L (133-145) 06/17/25 16:06 Potassium 4.7 mmol/L (3.3-5.1) 06/17/25 16:06 Chloride 92 mmol/L (98-108) L 06/17/25 16:06 Carbon Dioxide 27.9 mmol/L (21.0-32.0) 06/17/25 16:06 Anion Gap 14 (5-15) 06/17/25 16:06 BUN 31 mg/dL (4-19) H 06/17/25 16:06 Creatinine 3.20 mg/dL (0.70-1.20) H 06/17/25 16:06 Est GFR (MDRD) Non-Af 14 (>60) L 06/17/25 16:06 BUN/Creatinine Ratio 9.5 RATIO (10-20) L 06/17/25 16:06 Glucose 129 mg/dL (70-99) H 06/17/25 16:06 Microbiology Microbiology: Microbiology 06/17/25 22:00 Wound - Heel Right Skin and Soft Tissue MRSA/MSSA (PCR - Final Dosing Weight Weight used for dosin.2 kg Estimated Creatinine Clearance Estimated Creatinine Clearance: 13 Goal Trough Goal Trough: 15-20 mcg/mL Pharmacy Plan for Drug Dosing Pharmacy Plan for Drug Dosing: Pharmacy Service will continue to monitor and adjust dosing as required. INITIAL DOSE 1000MG GIVEN 06/17 @ 2454. PATIENT HAS CrCl < 20 AND NOT ON DIALYSIS, DRAW RANDOM LEVEL 06/19 @ 0600 AND DOSE ACCORDINGLY. Follow-Up Labs Follow-Up Labs: Trough: Vancomycin Date/Time Labs Ordered Labs to be done on [date and time ordered]: 06/18 @ 0600
--- NOTE | 2025-06-18 04:30 | RAD_ITS ---
PROCEDURE: CHEST 1 VIEW (PORTABLE) 06/18/2025 REASON FOR EXAM: HYPOXIA TECHNIQUE: Frontal view of the chest. COMPARISON: 06/17/2025. FINDINGS: Right internal jugular double-lumen central catheter is in good position with its tip at the atriocaval junction. AICD is in good position. Unchanged mild central pulmonary venous congestion. There is no demonstrated pleural abnormality. Enlarged cardiac silhouette. Normal mediastinum and derrick. Normal visualized pulmonary arteries. Atheromatous plaques of the visualized aortic arch and descending thoracic aorta. Diffuse spondylosis of the visualized thoracic spine. Normal visualized ribs, clavicles. Degenerative joint disease. There is no demonstrated abnormality of the visualized soft tissue structures of the upper abdomen. RAD/Chest 1 View (Portable) IMPRESSION: Unchanged cardiomegaly. Right internal jugular double-lumen central catheter is in good position with i ts tip at the atriocaval junction. AICD is in good position. Unchanged mild central pulmonary venous congestion. [facility]
--- NOTE | 2025-06-18 06:43 | PCM.CONS.GEN ---
Assessment & Plan Assessment/Plan (1) Pain in right foot: PLAN: Patient was examined evaluated. All findings were discussed with the patient. All questions were answered to the patient satisfaction. Radiographs, right foot (06/13/2025): Evidence of osteolysis to the medial eminence of the fourth metatarsal consistent of chronic gout. Degenerative changes appreciated mildly throughout the midfoot. Lateral view shows degenerative changes throughout the rear foot. Moderately decreased joint space appreciated to the ankle and subtalar joint. Arterial studies: Pending WBC: 11.9 -> 14.0 Uric acid: Pending ESR: 48 CRP: 82.9 HbA1c: 7.3 Glucose: 104 LA: 3.1 -> 1.9 After physical examination there is no evidence of full-thickness wound or concern for osteomyelitis to the first metatarsal. The right foot x-ray is suggestive of a punched-out erosion consistent with gouty changes. The wound to the right heel is stable with no sign of infection. With physical exam there is moderate pain with range of motion to the right ankle which is more consistent with the patient's history of gout as well as osteoarthritis. If the patient fails to improve, I would recommend a joint aspiration but done in the OR due to the patient's current condition. No plan for surgical intervention at this time but will plan for joint aspiration as needed. Medicine: On board, medical management, IV antibiotics Zosyn/vancomycin Assistant Customer Service Manager: On board Podiatry will continue to follow while patient is in house. Please reach out to Dr. Caruso with any question or concerns. Thank you for the consultation (2) Pain in right ankle: QUALIFIERS: Chronicity: chronic Qualified Code(s): M25.571 - Pain in right ankle and joints of right foot; G89.29 - Other chronic pain (3) Non-pressure chronic ulcer of right heel and midfoot with fat layer exposed: (4) Gout: QUALIFIERS: Gout site: ankle Chronicity: chronic Laterality: right (5) Other specified peripheral vascular diseases: (6) Osteoarthritis of right ankle: HPI Consult Data Date of Consult: 06/18/25 HPI Narrative Reason for Consultation: Right foot infection HPI Narrative: YAO SANCHES, is a 79 F who presented to the emergency room on 06/17/2025 with increased right foot pain and swelling. Patient states that she has had an ulcer to the heel that has been treated as an outpatient for approximately 1 week. Patient does admit that most of her pain is on her heel and ankle of the right lower extremity. She rates her pain as 9 and 10 on the pain scale for the past 3 days. Patient was admitted for the ICU secondary to concern for sepsis. She denies any trauma. Denies constitutional symptoms. No other pedal complaints at this time. [facility] Medical History MONIQUE (acute kidney injury) Ulcer of left lower extremity with fat layer exposed Anemia of chronic renal failure, stage 3 (moderate) Iron deficiency anemia due to chronic blood loss History of ESBL E. coli infection Type 2 diabetes mellitus Ulcer of left foot with fat layer exposed Ulcer of right foot with fat layer exposed Ulcer of right lower extremity with fat layer exposed Acute on chronic heart failure with preserved ejection fraction Hypokalemia Fatigue Vitamin D deficiency Rheumatoid arthritis Insomnia Mitral valve regurgitation Tachy-lionel syndrome Rheumatic fever GERD (gastroesophageal reflux disease) Chronic renal failure (CRF), stage 3b Cervical cancer Iron deficiency anemia Non-sustained ventricular tachycardia Pulmonary hypertension Rectal bleed Presence of Watchman left atrial appendage closure device Pacemaker Sinus node dysfunction Bradycardia History of cardioversion Skin tear of left forearm without complication Skin cancer Cardiac arrhythmia CHF exacerbation Brain aneurysm Anxiety Family history of brain aneurysm PAD (peripheral artery disease) PAF (paroxysmal atrial fibrillation) Obesity (BMI 30.0-34.9) Laceration of right middle finger Heart disease Diabetes History of cancer Fever HTN (hypertension) Diabetes mellitus type 2 in obese Chest pain, musculoskeletal HLD (hyperlipidemia) URI (upper respiratory infection) Bronchospasm with bronchitis, acute Home Medications ?Medication ?Instructions ?Recorded ?Last Taken ?Type atorvastatin 40 mg tablet 40 mg PO DAILY daily 01/07/25 06/05/25 History metoprolol succinate 50 mg 50 mg PO BID blood pressure 02/05/25 06/06/25 History tablet,extended release 24 hr vitamin B complex 1 tab PO QDAY supplement 02/05/25 06/06/25 History ascorbic acid (vitamin C) 500 mg 500 mg PO QDAY supplement 02/14/25 06/05/25 History tablet aspirin 81 mg tablet,delayed 81 mg PO QDAY heart [facility] 02/14/25 06/06/25 History release (Adult Aspirin Regimen) pantoprazole 40 mg tablet,delayed 40 mg PO QDAY stomach 02/14/25 06/06/25 History release polysaccharide iron complex 150 mg 150 mg PO QDAY low iron 02/14/25 06/05/25 History iron capsule (Ferrex) levothyroxine 50 mcg tablet 50 mcg PO DAILY thyroid 03/01/25 06/06/25 History Allergy/AdvReac Type Severity Reaction Status Date / Time propofol AdvReac Mild Low blood Verified 06/17/25 15:48 pressure Family History Father Heart disease High cholesterol Myocardial infarction, Onset Age: 58 Mother Heart disease Surgical History Hx of abdominal surgery History of mastoidectomy History of cardiac radiofrequency ablation history skin cancer surgery history bilateral ear surgeries History of hysterectomy H/O aortic valve replacement Social History household members: spouse number of children: 1 current occupational status: retired 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 Skin temperature is warm to warm from proximal ankles to distal digits to the bilateral lower extremity. No focal increase is appreciated to the right foot or ankle. Blanchable erythema is appreciated to the right heel. CFT is brisk. Neurological: Light touch is intact. Patient does Kegley to painful stimuli with palpation. Dermatological: Evidence of full-thickness wound to the right heel stable with no concerns of infection. Evidence of left heel fissure stable with no sign of infection. Musculoskeletal: Mild to moderate palpatory tenderness appreciated to the right heel. No pain on palpation to the left heel. Moderate pain with range of motion of the right ankle. No pain with calf compression bilateral. Const alert Lab / Micro Data 06/17/25 16:06 06/17/25 16:06 Labs: Laboratory Results - last 24 hr 06/17/25 16:06: WBC 11.9 H, RBC 3.20 L, Hgb 10.0 L, Hct 31.9 L, MCV 99.7 H, MCH 31.3, MCHC 31.3 L, RDW Std Deviation 77.8 H, RDW Coeff of Yonis 21.4 H, Plt Count 183, MPV 10.2, Immature Gran % (Auto) 1.000 H, Neut % (Auto) 71.4 H, Lymph % (Auto) 15.0 L, Gibson % (Auto) 11.4 H, Eos % (Auto) 0.7, Baso % (Auto) 0.5, Absolute Neuts (auto) 8.5 H, Absolute Lymphs (auto) 1.78, Nucleated RBC % 0.3, Differential Comment SCANNED, Polychromasia RARE, Anisocytosis 2+, Microcytosis 1+, Macrocytosis 1+, Ovalocytes RARE, ESR 48 H, PT 16.5 H, INR 1.3, APTT 41.8 H, Sodium 134, Potassium 4.7, Chloride 92 L, Carbon Dioxide 27.9, Anion Gap 14, BUN 31 H, Creatinine 3.20 H, Estim Creat Clear Calc 12.85 L, Est GFR (MDRD) Non-Af 14 L, BUN/Creatinine Ratio 9.5 L, Glucose 129 H, Lactic Acid 3.1 H*, Calcium 8.8, Magnesium 1.8, Total Creatine Kinase 53, C-React Prot Ext Range 82.90 H 06/17/25 21:54: Lactic Acid 1.9 06/17/25 22:21: POC Glucose 119 H Micro: Microbiology 06/17/25 22:00 Wound - Heel Right Skin and Soft Tissue MRSA/MSSA (PCR - Final Imaging Radiology Impression Chest X-Ray 06/17/25 17:40 IMPRESSION: Cardiac enlargement. Mild congestion. Reading Location: [id number] Chest X-Ray 06/18/25 04:30 IMPRESSION: Unchanged cardiomegaly. Right internal jugular double-lumen central catheter is in good position with its tip at the atriocaval junction. AICD is in good position. Unchanged mild central pulmonary venous congestion. Reading Location: [place] [address]
[2025-06-18 06:44] LABS: Hematocrit 32.6 % (37-47); Hemoglobin 10.4 g/dL (12.0-15.0); Immature Granulocytes Count 0.160 X10^3/uL (0.0-0.0); Mean Corp Hgb Conc 31.9 g/dL (32-36); Mean Corpuscular Volume 100.3 fL (81-99); Mean Platelet Vol. 10.0 fl (6.2-12.0); NRBC Flagged by Analyzer 0.7 % (0-5); POSITIVE MORPHOLOGY YES; Platelet Count 202 K/mm3 (150-450); RBC Distribution Width CV 21.1 % (11.6-14.6); RBC Distribution Width SD 76.7 fl (35.1-43.9); Red Blood Count 3.25 M/mm3 (4.2-5.4); White Blood Count 14.0 K/mm3 (4.4-11.0)
[2025-06-18 07:12] LABS: Pro- Brain NATRIURETIC PEPTIDE > 70000 pg/mL (<=1800)
[2025-06-18 07:14] LABS: Anion Gap 13 (5-15); Anisocytosis 2+; BUN 34 mg/dL (4-19); BUN/Creat Ratio 9.7 RATIO (10-20); Calcium,Total 8.9 mg/dL (7.6-11.0); Carbon Dioxide 24.8 mmol/L (21.0-32.0); Chloride 94 mmol/L (98-108); Differential Indicated SCAN CRITERIA MET; Estimated Creatinine Clearance 12.45 ml/min (50-250); Glucose 104 mg/dL (70-99); Potassium 4.8 mmol/L (3.3-5.1)
--- NOTE | 2025-06-18 07:14 | PN.HOSP_ITS ---
Reason for Visit Chief Complaint: Right foot wound noticed for 1 week Objective Data Objective Data Vital Signs: Vital Signs Temp Pulse Resp BP Pulse Ox O2 Del Method O2 Flow Rate 98.5 F 101 H 16 124/49 H 93 Nasal Cannula 3 06/18/25 06:00 06/18/25 06:00 06/18/25 06:00 06/18/25 06:00 06/18/25 06:00 06/18/25 06:00 06/18/25 06:00 Oxygen Flow Rate (L/min) 3 Oxygen Delivery Method Nasal Cannula Weight: 160 lb 4.417 oz Body Mass Index (BMI) 28.3 Intake & Output: Intake and Output for Last 24 Hours 06/16/25 06/17/25 06/18/25 23:59 23:59 23:59 Intake Total 1879.40 / 1888.80 115.8 / 115.8 Output Total 0 / 0 Balance 1879.40 / 1888.80 115.8 / 115.8 Lab / Micro Data 06/18/25 06:16 06/18/25 06:16 Labs: Laboratory Results - last 24 hr 06/17/25 16:06: WBC 11.9 H, RBC 3.20 L, Hgb 10.0 L, Hct 31.9 L, MCV 99.7 H, MCH 31.3, MCHC 31.3 L, RDW Std Deviation 77.8 H, RDW Coeff of Yonis 21.4 H, Plt Count 183, MPV 10.2, Immature Gran % (Auto) 1.000 H, Neut % (Auto) 71.4 H, Lymph % (Auto) 15.0 L, Petroleum % (Auto) 11.4 H, Eos % (Auto) 0.7, Baso % (Auto) 0.5, A bsolute Neuts (auto) 8.5 H, Absolute Lymphs (auto) 1.78, Nucleated RBC % 0.3, Differential Comment SCANNED, Polychromasia RARE, Anisocytosis 2+, Microcytosis 1+, Macrocytosis 1+, Ovalocytes RARE, ESR 48 H, PT 16.5 H, INR 1.3, APTT 41.8 H, Sodium 134, Potassium 4.7, Chloride 92 L, Carbon Dioxide 27.9, Anion Gap 14, BUN 31 H, Creatinine 3.20 H, Estim Creat Clear Calc 12.85 L, Est GFR (MDRD) Non-Af 14 L, BUN/Creatinine Ratio 9.5 L, Glucose 129 H, Lactic Acid 3.1 H*, Calcium 8.8, Magnesium 1.8, Total Creatine Kinase 53, C-React Prot Ext Range 82.90 H 06/17/25 21:54: Lactic Acid 1.9 06/17/25 22:21: POC Glucose 119 H 06/18/25 06:16: WBC 14.0 H, RBC 3.25 L, Hgb 10.4 L, Hct 32.6 L, MCV 100.3 H, MCH 32.0, MCHC 31.9 L, RDW Std Deviation 76.7 H, RDW Coeff of Yonis 21.1 H, Plt Count 202, MPV 10.0, Immature Gran % (Auto) 1.100 H, Neut % (Auto) 74.9 H, Lymph % (Auto) 13.4 L, Pet[place] % (Auto) 9.6, Eos % (Auto) 0.5, Baso % (Auto) 0.5, Absolute Neuts (auto) 10.5 H, Absolute Lymphs (auto) 1.88, Nucleated RBC % 0.7, Anisocytosis 2+, Sodium 133, Potassium 4.8, Chloride 94 L, Carbon Dioxide 24.8, Anion Gap 13, BUN 34 H, Creatinine 3.50 H, Estim Creat Clear Calc 12.45 L, Est GFR (MDRD) Non-Af 13 L, BUN/Creatinine Ratio 9.7 L, Glucose 104 H, Hemoglobin A1c 7.3 H, Calcium 8.9, [place] > 43828 H, TSH 5.730 H Micro: Microbiology 06/17/25 22:00 Wound - Heel Right Skin and Soft Tissue MRSA/MSSA (PCR - Final Radiography Diagnostic Testing: Radiology Impression Chest X-Ray 06/17/25 17:40 IMPRESSION: Cardiac enlargement. Mild congestion. Reading Location: [id number] Chest X-Ray 06/18/25 04:30 IMPRESSION: Unchanged cardiomegaly. Right internal jugular double-lumen central catheter is in good position with its tip at the atriocaval junction. AICD is in good position. Unchanged mild central pulmonary venous congestion. Reading Location: [place] [address] Physical Exam Narrative Complain that right foot pain about 8-9/10 intensity. Not able to give known history is difficult to hear. Hypothymia temperature dropped down to 95.2 Fahrenheit x 3. Most recent 97.8 Fahrenheit. Physical exam: General: Awake, mild lethargy oriented x3, Cooperative HEENT: Hard of hearing. Uses hearing aid. Atraumatic, PERRLA, EOMI, Normocephalic. Oral: Oral mucosa dry. No Gingival or Mucosal Lesions/ Ulcerations Neck: Supple, No JVD, Negative Carotid Bruits Chest wall/Lungs: Air entry diminished in bilateral lung bases. No crepitation/rhonchi Cardiovascular: Regular paced rhythm, Normal S1,S2, No M/G/R. Decreased pulse in right popliteal and dorsalis pedis Abdomen: Bowel Sounds Present, Soft, Non Tender, Non-Distended : No dysuria. On HD, TTS. No renal angle tenderness. No suprapubic tenderness. Extremities: Bilateral lower leg/ankle pitting edema, capillary refill delayed Skin: Right heel ulcer, nonblanching skin, pale and thickened skin of right lower leg ventral aspect. Unstageable pressure ulcer Musculoskeletal: Tenderness to the right foot/heel. No Tenderness to Palpation of Joints or Extremities Neurological: Cranial nerves II-XII grossly intact, DTR 2+/4. No acute focal neurological deficit. Psych/Mental Status: Flat affect Assessment & Plan Assessment/Plan (1) Acute osteomyelitis of foot: PLAN: Plan This entire female is being admitted for acute on chronic osteomyelitis of right heel 1. Shock possible differential septic shock/distributive shock, exact etiology unclear: X-ray of right foot on 06/23/2025 reviewed. It is reported as a lytic lesion involving the distal medial aspect of first metatarsal bone measuring 13.6 x 6 mm in transverse dimension. This lytic lesion appears a sclerotic margin with soft tissue swelling. Bone demineralization present. ESR and CRP are elevated. Mild leukocytosis. Patient is started on IV vancomycin and Zosyn. Patient on vehicle monitor technician at 1 time 89 systolic but not charted. Monitor BP. IV fluid Ringer lactate 1 L ordered as patient is dehydrated. MRI of right foot ordered. 12/15: Overnight the patient remained hypotensive, SBP 83. Indicators of sepsis of renal dysfunction or hypotension, SBP less than 90, MAP less than 65 lactic acidosis leukocytosis with left shift. Lactic acid 3.1. Required vasopressor and hence transferred to ICU. Repeat lactic acid came 1.9 normal range. Patient maintaining blood pressure on Levophed 5 mcg/min. Discussed with mechanic general operational test and he thinks right heel does not have underlying point of infection/pus. The lytic/punched-out lesion in the first metatarsal is more from previous gout. He does not think patient has osteomyelitis but MRI foot is ordered. If MRI cannot be done then 3 phase bone scan. Bone scan is sensitive but not specific as MRI for osteomyelitis with leukocytosis with immature granulocytes 1.1%. Communications Strategist consulted. . 2. Chronic HFpEF with right ventricular failure and moderate pulmonary hypertension: Chest x-ray done which shows cardiomegaly, pacemaker. Not suggestive of fluid overload but was admitted in first week of June for anasarca. Patient on metoprolol succinate, baby aspirin and atorvastatin continued. 2D echo in June 2025 shows EF 50% with normal ventricular size but moderately dilated RV, PASP 62 mmHg 3. Chronic A-fib status post Watchman device: Patient not on anticoagulation due to history of GI bleed and Watchman device. Continue metoprolol. 4. Suspected PAD: Lower extremity arterial study ordered. Skin of right lower leg is thickened, pale and nonblanchable. Decreased pulsation of right posterior tibial and dorsalis. 5. DM type II: Her denies DM type II but glucose 129 mg/dL. Last A1c 7.8% suggestive of DM type II. Accu-Chek before meals and at bedtime with Humalog sliding scale coverage and hypoglycemia protocol. 6. Chronic chest flail: No acute issues 7. ESRD on hemodialysis: Wednesday and Wednesday. Airport Shuttle Driver was consulted on admission. Patient has Vaughn catheter. Usually she makes some urine but no urine in Vaughn catheter since last night DVT prophylaxis on heparin 5000 subcutaneous twice daily Living will/advanced directive/end of life care: Patient does have living will or advanced directive. Patient's present in the ED and is power of pharmacy clinical coordinator for health. After discussion of benefits/risks procedures involved with full code, DNR CC arrest and DNR CC, the patient and her opted for DNR CC arrest with no intubation Patient doesn't want artificial life support including intubation, tube feed, ventilator and/chest compression, and DC shock if needed but OK with central venous catheter and, vasopressor Total time spent in [id number] encounter in discussion of advanced directive 17 minutes. Laboratory Results 06/17/25 16:06: WBC 11.9 H, RBC 3.20 L, Hgb 10.0 L, Hct 31.9 L, MCV 99.7 H, MCH 31.3, MCHC 31.3 L, RDW Std Deviation 77.8 H, RDW Coeff of Yonis 21.4 H, Plt Count 183, MPV 10.2, Immature Gran % (Auto) 1.000 H, Neut % (Auto) 71.4 H, Lymph % (Auto) 15.0 L, [place] % (Auto) 11.4 H, Eos % (Auto) 0.7, Baso % (Auto) 0.5, A bsolute Neuts (auto) 8.5 H, Absolute Lymphs (auto) 1.78, Nucleated RBC % 0.3, Differential Comment SCANNED, Polychromasia RARE, Anisocytosis 2+, Microcytosis 1+, Macrocytosis 1+, Ovalocytes RARE, ESR 48 H, Sodium 134, Potassium 4.7, C hloride 92 L, Carbon Dioxide 27.9, Anion Gap 14, BUN 31 H, Creatinine 3.20 H, E stim Creat Clear Calc 12.85 L, Est GFR (MDRD) Non-Af 14 L, BUN/Creatinine Ratio 9.5 L, Glucose 129 H, Calcium 8.8, C-React Prot Ext Range 82.90 H Charges/Coding Visit Charges Inpatient E&M: 86838 Subs Hosp L3
[2025-06-18 07:34] LABS: Uric Acid 4.3 mg/dL (2.6-6.0)
--- NOTE | 2025-06-18 08:31 | WOUNDNOTE ---
wound photo: right lateral heel
--- NOTE | 2025-06-18 08:33 | WOUNDNOTE ---
wound photo: left heel
--- NOTE | 2025-06-18 08:34 | WOUNDNOTE ---
skin photo: right anterior view foot/ankle
[2025-06-18] MEDS: Senna/Docusate Sodium 1 Tablet 2 TABLET PO ×2 (08:35→22:37)
--- NOTE | 2025-06-18 08:35 | WOUNDNOTE ---
skin photo: medial view right foot/ankle
[2025-06-18] MEDS: Vitamin B Comp W-C Capsule 1 CAP PO (08:36)
[2025-06-18] MEDS: Aspirin E.C. 81 MG Tablet PO (08:36)
--- NOTE | 2025-06-18 08:36 | WOUNDNOTE ---
skin photo: lateral view right foot/ankle
--- NOTE | 2025-06-18 08:36 | EX.PCM.CONCC ---
Assessment & Plan Assessment/Plan (1) Shock: PLAN: Plan RECOMMENDATIONS: 1. Continue empiric antimicrobials. 2. Strongly recommend avoiding morphine for pain control in a patient with renal disease. 3. Start scheduled midodrine. 4. Low-dose vasopressor support. Wean as tolerated. 5. MRI foot pending. Podiatry is following. IMPRESSIONS: 1. Undifferentiated shock The patient was initially admitted to the hospital with concern for underlying osteomyelitis. However, this appears to be less of a concern, following evaluation by podiatry. I do suspect that the patient's somnolence and hemodynamic compromise was likely the consequence of the IV morphine that was administered in the emergency department. Conservative fluid resuscitation was undertaken, in light of the patient's underlying renal insufficiency. For now, it is reasonable to continue empiric antibiotics, pending blood culture results. MRI foot is currently pending. Recommend continuing scheduled midodrine and low-dose Levophed to maintain hemodynamic stability. 2. End-stage renal disease on hemodialysis Nephrology consulted to assist with medical management. 3. History of atrial fibrillation/pulmonary hypertension/heart failure with preserved ejection fraction/diabetes mellitus Complicates care, management, recovery and prognosis. Continue supportive measures as noted above. Cautious use of opiates, especially morphine, for pain control is recommended in this patient with underlying renal disease. TIME: 35 minutes of critical care time, independent of procedures, was spent addressing the patient's undifferentiated shock, end-stage renal disease on hemodialysis, review of all data and collaboration with the care team. HPI Consult Data Date of Consult: 06/18/25 HPI Narrative Reason for Consultation: Hypotension HPI Narrative: The patient is a 79-year-old female, with a history as outlined below, who presented to the emergency department on June 17 with complaints of a right lower extremity ulcer and associated swelling of approximately 1 weeks duration. The patient had just been discharged from the hospital on June 11, after having been admitted with fluid overload with anasarca secondary to end-stage renal disease. On presentation to the emergency department, the patient was noted to be afebrile and hemodynamically stable. Initial laboratory evaluation revealed a white blood cell count of 12,000 with a hemoglobin of 10.0 g/dL and platelet count of 183,000. Chemistry profile was notable for a lactate of 3.1. Foot x-ray demonstrated a lytic lesion involving the distal medial aspect of the first metatarsal bone potentially related to osteomyelitis. Blood cultures were subsequently obtained. A consultation was subsequently placed to podiatry. The patient was ultimately admitted to the hospital after being placed on antimicrobials. For reasons that are not entirely clear, it appears that the patient was given a one-time dose of IV morphine 6 mg in the emergency department prior to being admitted to the hospital. Shortly after her arrival to the hospital, the patient was noted to be hypotensive, for which she received a small amount of IV fluids. However, conservative fluid resuscitation was undertaken given the patient's underlying renal insufficiency. The patient ultimately developed fluid refractory hypotension, for which she was started on low-dose Levophed. The patient was then transferred to the medical intensive care unit for further management. During the evening hours of June 17, the patient had documented temperatures less than 96 ?F. The patient was seen in consultation by podiatry this morning, without any plans for any form of surgical intervention noted. [facility] Medical History MONIQUE (acute kidney injury) Ulcer of left lower extremity with fat layer exposed Anemia of chronic renal failure, stage 3 (moderate) Iron deficiency anemia due to chronic blood loss History of ESBL E. coli infection Type 2 diabetes mellitus Ulcer of left foot with fat layer exposed Ulcer of right foot with fat layer exposed Ulcer of right lower extremity with fat layer exposed Acute on chronic heart failure with preserved ejection fraction Hypokalemia Fatigue Vitamin D deficiency Rheumatoid arthritis Insomnia Mitral valve regurgitation Tachy-lionel syndrome Rheumatic fever GERD (gastroesophageal reflux disease) Chronic renal failure (CRF), stage 3b Cervical cancer Iron deficiency anemia Non-sustained ventricular tachycardia Pulmonary hypertension Rectal bleed Presence of Watchman left atrial appendage closure device Pacemaker Sinus node dysfunction Bradycardia History of cardioversion Skin tear of left forearm without complication Skin cancer Cardiac arrhythmia CHF exacerbation Brain aneurysm Anxiety Family history of brain aneurysm PAD (peripheral artery disease) PAF (paroxysmal atrial fibrillation) Obesity (BMI 30.0-34.9) Laceration of right middle finger Heart disease Diabetes History of cancer Fever HTN (hypertension) Diabetes mellitus type 2 in obese Chest pain, musculoskeletal HLD (hyperlipidemia) URI (upper respiratory infection) Bronchospasm with bronchitis, acute Home Medications ?Medication ?Instructions ?Recorded ?Last Taken ?Type atorvastatin 40 mg tablet 40 mg PO DAILY daily 01/07/25 06/05/25 History metoprolol succinate 50 mg 50 mg PO BID blood pressure 02/05/25 06/06/25 History tablet,extended release 24 hr vitamin B complex 1 tab PO QDAY supplement 02/05/25 06/06/25 History ascorbic acid (vitamin C) 500 mg 500 mg PO QDAY supplement 02/14/25 06/05/25 History tablet aspirin 81 mg tablet,delayed 81 mg PO QDAY heart health 02/14/25 06/06/25 History release (Adult Aspirin Regimen) pantoprazole 40 mg tablet,delayed 40 mg PO QDAY stomach 02/14/25 06/06/25 History release polysaccharide iron complex 150 mg 150 mg PO QDAY low iron 02/14/25 06/05/25 History iron capsule (Ferrex) levothyroxine 50 mcg tablet 50 mcg PO DAILY thyroid 03/01/25 06/06/25 History Allergy/AdvReac Type Severity Reaction Status Date / Time propofol AdvReac Mild Low blood Verified 06/17/25 15:48 pressure Family History Father Heart disease High cholesterol Myocardial infarction, Onset Age: 58 Mother Heart disease Surgical History Hx of abdominal surgery History of mastoidectomy History of cardiac radiofrequency ablation history skin cancer surgery history bilateral ear surgeries History of hysterectomy H/O aortic valve replacement Social History household members: spouse number of children: 1 current occupational status: retired 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 HEENT normocephalic and head/scalp atraumatic Eyes PERRL, EOMs intact bilaterally and conjunctivae normal Neck supple General: trachea midline Chest inspection of chest normal Resp normal respiratory effort Auscultation: Negative for rales, rhonchi or wheezes Cardio regular rate and regular rhythm GI normal to inspection, nondistended, normoactive bowel sounds Extremity no clubbing, cyanosis or edema Skin Skin Narrative: Right lower extremity ulcer Neuro CN's II-XII intact bilaterally and no focal motor deficits Psych Mood & Affect: flat affect Lab / Micro Data 06/18/25 06:16 06/18/25 06:16 Labs: Laboratory Results - last 24 hr 06/17/25 16:06: WBC 11.9 H, RBC 3.20 L, Hgb 10.0 L, Hct 31.9 L, MCV 99.7 H, MCH 31.3, MCHC 31.3 L, RDW Std Deviation 77.8 H, RDW Coeff of Yonis 21.4 H, Plt Count 183, MPV 10.2, Immature Gran % (Auto) 1.000 H, Neut % (Auto) 71.4 H, Lymph % (Auto) 15.0 L, [place] % (Auto) 11.4 H, Eos % (Auto) 0.7, Baso % (Auto) 0.5, Absolute Neuts (auto) 8.5 H, Absolute Lymphs (auto) 1.78, Nucleated RBC % 0.3, Differential Comment SCANNED, Polychromasia RARE, Anisocytosis 2+, Microcytosis 1+, Macrocytosis 1+, Ovalocytes RARE, ESR 48 H, PT 16.5 H, INR 1.3, APTT 41.8 H, Sodium 134, Potassium 4.7, Chloride 92 L, Carbon Dioxide 27.9, Anion Gap 14, BUN 31 H, Creatinine 3.20 H, Estim Creat Clear Calc 12.85 L, Est GFR (MDRD) Non-Af 14 L, BUN/Creatinine Ratio 9.5 L, Glucose 129 H, Lactic Acid 3.1 H*, Calcium 8.8, Magnesium 1.8, Total Creatine Kinase 53, C-React Prot Ext Range 82.90 H 06/17/25 21:54: Lactic Acid 1.9 06/17/25 22:21: POC Glucose 119 H 06/18/25 06:16: WBC 14.0 H, RBC 3.25 L, Hgb 10.4 L, Hct 32.6 L, MCV 100.3 H, MCH 32.0, MCHC 31.9 L, RDW Std Deviation 76.7 H, RDW Coeff of Yonis 21.1 H, Plt Count 202, MPV 10.0, Immature Gran % (Auto) 1.100 H, Neut % (Auto) 74.9 H, Lymph % (Auto) 13.4 L, [place] % (Auto) 9.6, Eos % (Auto) 0.5, Baso % (Auto) 0.5, Absolute Neuts (auto) 10.5 H, Absolute Lymphs (auto) 1.88, Nucleated RBC % 0.7, Anisocytosis 2+, Sodium 133, Potassium 4.8, Chloride 94 L, Carbon Dioxide 24.8, Anion Gap 13, BUN 34 H, Creatinine 3.50 H, Estim Creat Clear Calc 12.45 L, Est GFR (MDRD) Non-Af 13 L, BUN/Creatinine Ratio 9.7 L, Glucose 104 H, Hemoglobin A1c 7.3 H, Uric Acid 4.3, Calcium 8.9, [place] > 78088 H, TSH 5.730 H Micro: Microbiology 06/17/25 22:00 Wound - Heel Right Skin and Soft Tissue MRSA/MSSA (PCR - Final Imaging Radiology Impression Chest X-Ray 06/17/25 17:40 IMPRESSION: Cardiac enlargement. Mild congestion. Reading Location: [id number] Chest X-Ray 06/18/25 04:30 IMPRESSION: Unchanged cardiomegaly. Right internal jugular double-lumen central catheter is in good position with its tip at the atriocaval junction. AICD is in good position. Unchanged mild central pulmonary venous congestion. Reading Location: [place] [id number] Charges/Coding Procedures Hospitalists Procedures: 73482 Critical Care 1st Hr
[2025-06-18] MEDS: Piperacil/Tazobactam 3.375 GM in 0.9% Normal Saline (50mL MB+) 50 ML IV ×2 (08:37→22:25)
--- NOTE | 2025-06-18 08:37 | WOUNDNOTE ---
wound photo: left arm
[2025-06-18] MEDS: Heparin Injection (Vial) 5,000 UNIT/ML VIAL 5000 UNIT SC ×2 (08:38→22:25)
--- NOTE | 2025-06-18 08:39 | WOUNDNOTE ---
wound photo: left arm
--- NOTE | 2025-06-18 11:37 | NM_ITS ---
PROCEDURE: BONE SCAN THREE PHASE 06/19/2025 REASON FOR EXAM: RIGHT FOOT SUSPECTED OSTEOMYELITIS TECHNIQUE: Procedure Code: NMBOT Modality: NM Procedure: BONE SCAN THREE PHASE Blood flow, blood pool, and delayed phase imaging of the right foot after radiopharmaceutical administration 26.1 mCi technetium 99 M medronate COMPARISON: June 13 2025 x-ray FINDINGS: Blood flow: Symmetric Blood pool and delayed images show mild increased radiotracer activity in the hindfoot on the right which corresponds to degenerative change on the accompanying x-ray. There is no significant abnormal activity identified in the region of the 1st metatarsal to suggest osteomyelitis. NM/Bone Scan Three Phase IMPRESSION: Three-phase bone scan is negative for osteomyelitis in the region of the 1st me tatarsal. Reading Location: [facility]
[2025-06-18] MEDS: LACTATED RINGERS 500 ML 999 ML IV (12:45)
--- NOTE | 2025-06-18 13:18 | PCM.CONS.GEN ---
Assessment & Plan Assessment/Plan (1) Pain in right foot: PLAN: Wbc 14, some hypothermia, foot MRI pending, bcx neg so far. Recently started on HD. Ok to continue empiric vanc/zosyn for now. Will follow, thank you (2) Shock: HPI Consult Data Date of Consult: 06/18/25 HPI Narrative Reason for Consultation: foot infection HPI Narrative: YAO SANCHES, is a 79 F who presented 06/17 to ED with one week worsened R foot pain, swelling, skin cracking. No fever or chills. No drainage. No recent abx. Per , she was admitted to hospital in [place] in 09/2024 for this and blood flow issues. Admitted here on zosyn, vanc added. Had hypotension, sent to icu with pressors. Remains poorly responsive today. at bedside provided history. Full ROS unobtainable due to mental status [facility] Medical History MONIQUE (acute kidney injury) Ulcer of left lower extremity with fat layer exposed Anemia of chronic renal failure, stage 3 (moderate) Iron deficiency anemia due to chronic blood loss History of ESBL E. coli infection Type 2 diabetes mellitus Ulcer of left foot with fat layer exposed Ulcer of right foot with fat layer exposed Ulcer of right lower extremity with fat layer exposed Acute on chronic heart failure with preserved ejection fraction Hypokalemia Fatigue Vitamin D deficiency Rheumatoid arthritis Insomnia Mitral valve regurgitation Tachy-lionel syndrome Rheumatic fever GERD (gastroesophageal reflux disease) Chronic renal failure (CRF), stage 3b Cervical cancer Iron deficiency anemia Non-sustained ventricular tachycardia Pulmonary hypertension Rectal bleed Presence of Watchman left atrial appendage closure device Pacemaker Sinus node dysfunction Bradycardia History of cardioversion Skin tear of left forearm without complication Skin cancer Cardiac arrhythmia CHF exacerbation Brain aneurysm Anxiety Family history of brain aneurysm PAD (peripheral artery disease) PAF (paroxysmal atrial fibrillation) Obesity (BMI 30.0-34.9) Laceration of right middle finger Heart disease Diabetes History of cancer Fever HTN (hypertension) Diabetes mellitus type 2 in obese Chest pain, musculoskeletal HLD (hyperlipidemia) URI (upper respiratory infection) Bronchospasm with bronchitis, acute Home Medications ?Medication ?Instructions ?Recorded ?Last Taken ?Type atorvastatin 40 mg tablet 40 mg PO DAILY daily 01/07/25 06/05/25 History metoprolol succinate 50 mg 50 mg PO BID blood pressure 02/05/25 06/06/25 History tablet,extended release 24 hr vitamin B complex 1 tab PO QDAY supplement 02/05/25 06/06/25 History ascorbic acid (vitamin C) 500 mg 500 mg PO QDAY supplement 02/14/25 06/05/25 History tablet aspirin 81 mg tablet,delayed 81 mg PO QDAY heart health 02/14/25 06/06/25 History release (Adult Aspirin Regimen) pantoprazole 40 mg tablet,delayed 40 mg PO QDAY stomach 02/14/25 06/06/25 History release polysaccharide iron complex 150 mg 150 mg PO QDAY low iron 02/14/25 06/05/25 History iron capsule (Ferrex) levothyroxine 50 mcg tablet 50 mcg PO DAILY thyroid 03/01/25 06/06/25 History Allergy/AdvReac Type Severity Reaction Status Date / Time propofol AdvReac Mild Low blood Verified 06/17/25 15:48 pressure Family History Father Heart disease High cholesterol Myocardial infarction, Onset Age: 58 Mother Heart disease Surgical History Hx of abdominal surgery History of mastoidectomy History of cardiac radiofrequency ablation history skin cancer surgery history bilateral ear surgeries History of hysterectomy H/O aortic valve replacement Social History household members: spouse number of children: 1 current occupational status: retired 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 Smoking Status: Former smoker Tobacco: How many years used: 1 alcohol intake: current alcohol intake frequency: holidays/special occasions only Alcohol type: wine substance use type: does not use Physical Exam Const no apparent distress Constitutional Narrative: opens eyes briefly to voice General Appearance: lethargic HEENT normocephalic and head/scalp atraumatic Eyes PERRL Neck supple and No nodes Resp normal air movement and clear to auscultation bilaterally Cardio Negative for regular rhythm Rate: tachycardic GI soft to palpation, non-tender and non-distended Extremity General Extremity: edema Skin Skin Narrative: reviewed wound photos, some skin cracking R heel Neuro CN's II-XII intact bilaterally Lab / Micro Data Attestation: I reviewed the patient's lab results. 06/18/25 06:16 06/18/25 06:16 Labs: Laboratory Results - last 24 hr 06/17/25 16:06: WBC 11.9 H, RBC 3.20 L, Hgb 10.0 L, Hct 31.9 L, MCV 99.7 H, MCH 31.3, MCHC 31.3 L, RDW Std Deviation 77.8 H, RDW Coeff of Yonis 21.4 H, Plt Count 183, MPV 10.2, Immature Gran % (Auto) 1.000 H, Neut % (Auto) 71.4 H, Lymph % (Auto) 15.0 L, Teton % (Auto) 11.4 H, Eos % (Auto) 0.7, Baso % (Auto) 0.5, Absolute Neuts (auto) 8.5 H, Absolute Lymphs (auto) 1.78, Nucleated RBC % 0.3, Differential Comment SCANNED, Polychromasia RARE, Anisocytosis 2+, Microcytosis 1+, Macrocytosis 1+, Ovalocytes RARE, ESR 48 H, PT 16.5 H, INR 1.3, APTT 41.8 H, Sodium 134, Potassium 4.7, Chloride 92 L, Carbon Dioxide 27.9, Anion Gap 14, BUN 31 H, Creatinine 3.20 H, Estim Creat Clear Calc 12.85 L, Est GFR (MDRD) Non-Af 14 L, BUN/Creatinine Ratio 9.5 L, Glucose 129 H, Lactic Acid 3.1 H*, Calcium 8.8, Magnesium 1.8, Total Creatine Kinase 53, C-React Prot Ext Range 82.90 H 06/17/25 21:54: Lactic Acid 1.9 06/17/25 22:21: POC Glucose 119 H 06/18/25 06:16: WBC 14.0 H, RBC 3.25 L, Hgb 10.4 L, Hct 32.6 L, MCV 100.3 H, MCH 32.0, MCHC 31.9 L, RDW Std Deviation 76.7 H, RDW Coeff of Yonis 21.1 H, Plt Count 202, MPV 10.0, Immature Gran % (Auto) 1.100 H, Neut % (Auto) 74.9 H, Lymph % (Auto) 13.4 L, Teton % (Auto) 9.6, Eos % (Auto) 0.5, Baso % (Auto) 0.5, Absolute Neuts (auto) 10.5 H, Absolute Lymphs (auto) 1.88, Nucleated RBC % 0.7, Anisocytosis 2+, Sodium 133, Potassium 4.8, Chloride 94 L, Carbon Dioxide 24.8, Anion Gap 13, BUN 34 H, Creatinine 3.50 H, Estim Creat Clear Calc 12.45 L, Est GFR (MDRD) Non-Af 13 L, BUN/Creatinine Ratio 9.7 L, Glucose 104 H, Hemoglobin A1c 7.3 H, Uric Acid 4.3, Calcium 8.9, [place] II > [address] H, TSH 5.730 H 06/18/25 11:52: POC Glucose 83 Micro: Microbiology 06/17/25 22:00 Wound - Heel Right Gram Stain - Final 06/17/25 22:00 Wound - Heel Right Skin and Soft Tissue MRSA/MSSA (PCR - Final Imaging Radiology Impression Chest X-Ray 06/17/25 17:40 IMPRESSION: Cardiac enlargement. Mild congestion. Reading Location: [facility] Extremity Arterial Study 06/17/25 18:03 Interpretation Summary Right GILDA 0.83, moderate arterial insufficiency. Doppler/PVR waveforms of the right leg moderately diminished at rest. Left GILDA 0.66, moderate arterial insufficiency. Doppler/PVR waveforms of the left leg moderately diminished at rest. Ordering Physician: Imtiaz Melissa Referring Physician: Vincent Flores Chi Performed By: ADA HOU Henrietta Chest X-Ray 06/18/25 04:30 IMPRESSION: Unchanged cardiomegaly. Right internal jugular double-lumen central catheter is in good position with its tip at the atriocaval junction. AICD is in good position. Unchanged mild central pulmonary venous congestion. Reading Location[facility]
--- NOTE | 2025-06-18 16:50 | PCM.CONS.R ---
Assessment & Plan Assessment/Plan (1) MONIQUE (acute kidney injury): PLAN: Acute renal failure CKD stage IV History of congestive heart failure Admitted with confusion, right lower extremity redness. Seen by podiatry, ID service, ICU. Currently has a IJ tunneled dialysis catheter for access. Will continue dialysis as per schedule. HPI Consult Data Date of Consult: 06/18/25 HPI Narrative Reason for Consultation: ESRD HPI Narrative: YAO SANCHES, is a 79 F who presents With right lower extremity erythema, swelling. Nephrology on consultation in view of acute on chronic renal failure, dialysis dependent. She has known history of CKD stage IV, was started on dialysis few weeks ago. Has had couple of hospitalizations since then. She was admitted with above complaints, initially suspected of osteomyelitis, seen by podiatry. Somewhat drowsy today, unable to obtain review of systems. Blood pressure is borderline low, requiring low-dose pressors. COUNTS INCLUDE 234 BEDS AT THE [facility] Medical History MONIQUE (acute kidney injury) Ulcer of left lower extremity with fat layer exposed Anemia of chronic renal failure, stage 3 (moderate) Iron deficiency anemia due to chronic blood loss History of ESBL E. coli infection Type 2 diabetes mellitus Ulcer of left foot with fat layer exposed Ulcer of right foot with fat layer exposed Ulcer of right lower extremity with fat layer exposed Acute on chronic heart failure with preserved ejection fraction Hypokalemia Fatigue Vitamin D deficiency Rheumatoid arthritis Insomnia Mitral valve regurgitation Tachy-lionel syndrome Rheumatic fever GERD (gastroesophageal reflux disease) Chronic renal failure (CRF), stage 3b Cervical cancer Iron deficiency anemia Non-sustained ventricular tachycardia Pulmonary hypertension Rectal bleed Presence of Watchman left atrial appendage closure device Pacemaker Sinus node dysfunction Bradycardia History of cardioversion Skin tear of left forearm without complication Skin cancer Cardiac arrhythmia CHF exacerbation Brain aneurysm Anxiety Family history of brain aneurysm PAD (peripheral artery disease) PAF (paroxysmal atrial fibrillation) Obesity (BMI 30.0-34.9) Laceration of right middle finger Heart disease Diabetes History of cancer Fever HTN (hypertension) Diabetes mellitus type 2 in obese Chest pain, musculoskeletal HLD (hyperlipidemia) URI (upper respiratory infection) Bronchospasm with bronchitis, acute Home Medications ?Medication ?Instructions ?Recorded ?Last Taken ?Type atorvastatin 40 mg tablet 40 mg PO DAILY daily 01/07/25 06/05/25 History metoprolol succinate 50 mg 50 mg PO BID blood pressure 02/05/25 06/06/25 History tablet,extended release 24 hr vitamin B complex 1 tab PO QDAY supplement 02/05/25 06/06/25 History ascorbic acid (vitamin C) 500 mg 500 mg PO QDAY supplement 02/14/25 06/05/25 History tablet aspirin 81 mg tablet,delayed 81 mg PO QDAY heart health 02/14/25 06/06/25 History release (Adult Aspirin Regimen) pantoprazole 40 mg tablet,delayed 40 mg PO QDAY stomach 02/14/25 06/06/25 History release polysaccharide iron complex 150 mg 150 mg PO QDAY low iron 02/14/25 06/05/25 History iron capsule (Ferrex) levothyroxine 50 mcg tablet 50 mcg PO DAILY thyroid 03/01/25 06/06/25 History Allergy/AdvReac Type Severity Reaction Status Date / Time propofol AdvReac Mild Low blood Verified 06/17/25 15:48 pressure Family History Father Heart disease High cholesterol Myocardial infarction, Onset Age: 58 Mother Heart disease Surgical History Hx of abdominal surgery History of mastoidectomy History of cardiac radiofrequency ablation history skin cancer surgery history bilateral ear surgeries History of hysterectomy H/O aortic valve replacement Social History household members: spouse number of children: 1 current occupational status: 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 Smoking Status: Former smoker Tobacco: How many years used: 1 alcohol intake: current alcohol intake frequency: holidays/special occasions only Alcohol type: wine substance use type: does not use ROS ROS Narrative unable to obtain due to AMS Physical Exam Narrative no obvious distress no pallor no icterus no JVD s1s2 no murmurs lungs clear abdomen soft no organomegaly no edema Lab / Micro Data 06/18/25 06:16 06/18/25 06:16 Labs: Laboratory Results - last 24 hr 06/17/25 16:06: WBC 11.9 H, RBC 3.20 L, Hgb 10.0 L, Hct 31.9 L, MCV 99.7 H, MCH 31.3, MCHC 31.3 L, RDW Std Deviation 77.8 H, RDW Coeff of Yonis 21.4 H, Plt Count 183, MPV 10.2, Immature Gran % (Auto) 1.000 H, Neut % (Auto) 71.4 H, Lymph % (Auto) 15.0 L, Hendricks % (Auto) 11.4 H, Eos % (Auto) 0.7, Baso % (Auto) 0.5, Absolute Neuts (auto) 8.5 H, Absolute Lymphs (auto) 1.78, Nucleated RBC % 0.3, Differential Comment SCANNED, Polychromasia RARE, Anisocytosis 2+, Microcytosis 1+, Macrocytosis 1+, Ovalocytes RARE, ESR 48 H, PT 16.5 H, INR 1.3, APTT 41.8 H, Lactic Acid 3.1 H*, Magnesium 1.8, Total Creatine Kinase 53 06/17/25 21:54: Lactic Acid 1.9 06/17/25 22:21: POC Glucose 119 H 06/18/25 06:16: WBC 14.0 H, RBC 3.25 L, Hgb 10.4 L, Hct 32.6 L, MCV 100.3 H, MCH 32.0, MCHC 31.9 L, RDW Std Deviation 76.7 H, RDW Coeff of Yonis 21.1 H, Plt Count 202, MPV 10.0, Immature Gran % (Auto) 1.100 H, Neut % (Auto) 74.9 H, Lymph % (Auto) 13.4 L, Hendricks % (Auto) 9.6, Eos % (Auto) 0.5, Baso % (Auto) 0.5, Absolute Neuts (auto) 10.5 H, Absolute Lymphs (auto) 1.88, Nucleated RBC % 0.7, Anisocytosis 2+, Sodium 133, Potassium 4.8, Chloride 94 L, Carbon Dioxide 24.8, Anion Gap 13, BUN 34 H, Creatinine 3.50 H, Estim Creat Clear Calc 12.45 L, Est GFR (MDRD) Non-Af 13 L, BUN/Creatinine Ratio 9.7 L, Glucose 104 H, Hemoglobin A1c 7.3 H, Uric Acid 4.3, Calcium 8.9, [place] > [address] H, TSH 5.730 H 06/18/25 11:52: POC Glucose 83 06/18/25 15:52: POC Glucose 68 L Micro: Microbiology 06/17/25 22:00 Wound - Heel Right Gram Stain - Final 06/17/25 22:00 Wound - Heel Right Skin and Soft Tissue MRSA/MSSA (PCR - Final Imaging Radiology Impression Chest X-Ray 06/17/25 17:40 IMPRESSION: Cardiac enlargement. Mild congestion. Reading Location: [id number] Extremity Arterial Study 06/17/25 18:03 Interpretation Summary Right GILDA 0.83, moderate arterial insufficiency. Doppler/PVR waveforms of the right leg moderately diminished at rest. Left GILDA 0.66, moderate arterial insufficiency. Doppler/PVR waveforms of the left leg moderately diminished at rest. Ordering Physician: Imtiaz Melissa Referring Physician: Vincent Flores Chi Performed By: ADA HOU Henrietta Chest X-Ray 06/18/25 04:30 IMPRESSION: Unchanged cardiomegaly. Right internal jugular double-lumen central catheter is in good position with its tip at the atriocaval junction. AICD is in good position. Unchanged mild central pulmonary venous congestion. Reading Location: [place] [id number]
[2025-06-18] MEDS: 0.9% Saline Lock 10 ML Syringe IV (22:56)
[2025-06-18 23:52] LABS: Mucous, Urine 0 SEEN /hpf (<or=2+); Squamous Epithelial Cells - UA 0 SEEN /hpf (5-10)
[2025-06-18 23:54] LABS: Color, Urine Brown (Yellow); Glucose, Dipstick Normal (Normal); Ketone-Dipstick 5 mg/dl (Negative); Leukocyte Esterase-Dipstick 500 /ul (Negative); Nitrite-Dipstick Negative (Negative); Occult Blood-Urine 250 /ul (Negative); Protein-Dipstick 500 mg/dl (Negative); Specific Gravity, Urine 1.015 (1.002-1.030)
[2025-06-18 23:57] LABS: Urine Bilirubin Dipstick 1 mg/dL (Negative)
[2025-06-19] VITALS (43 sets, daily range): BP systolic 85–140; BP diastolic 34–94; PULSE 82–105; RESP 11–20; TEMP 35.6–36.9; O2SAT 93–100; BMI 28.0; BMI 27.5
[2025-06-19 00:02] LABS: Red Blood Cells-Urine 50-100 SEEN /hpf (0-5)
[2025-06-19] MEDS: 0.9% Saline Lock 10 ML Syringe IV (05:59)
[2025-06-19 06:20] LABS: Hematocrit 30.1 % (37-47); Hemoglobin 9.6 g/dL (12.0-15.0); Immature Granulocytes Count 0.120 X10^3/uL (0.0-0.0); Mean Corp Hgb Conc 31.9 g/dL (32-36); Mean Corpuscular Volume 100.0 fL (81-99); Mean Platelet Vol. 9.6 fl (6.2-12.0); NRBC Flagged by Analyzer 0.9 % (0-5); POSITIVE MORPHOLOGY YES; Platelet Count 175 K/mm3 (150-450); RBC Distribution Width CV 21.2 % (11.6-14.6); RBC Distribution Width SD 74.8 fl (35.1-43.9); Red Blood Count 3.01 M/mm3 (4.2-5.4); White Blood Count 11.7 K/mm3 (4.4-11.0)
[2025-06-19 06:23] LABS: Differential Indicated SCAN CRITERIA MET
[2025-06-19 06:37] LABS: Vancomycin, Random Level 9.5 ug/mL (0.0-15.0)
[2025-06-19 06:39] LABS: Anion Gap 15 (5-15); BUN 43 mg/dL (4-19); BUN/Creat Ratio 10.4 RATIO (10-20); Calcium,Total 8.8 mg/dL (7.6-11.0); Carbon Dioxide 23.6 mmol/L (21.0-32.0); Chloride 95 mmol/L (98-108); Estimated Creatinine Clearance 10.44 ml/min (50-250); Glucose 98 mg/dL (70-99); Potassium 5.4 mmol/L (3.3-5.1)
--- NOTE | 2025-06-19 06:53 | PCM.RX.CS ---
Consult Antibiotic Management Pharmacy has been consulted to manage selected antibiotic: Vancomycin Type of Intervention Type of Consult: Follow-up Suspected Infection Suspected Infection: Sepsis and Osteomyelitis Prior Doses of Antibiotics Prior Doses of Antibiotics Received/Current Regimen: Vancomycin 1000 mg IV x 1 given 06/17/25 @ 2244 Labs Labs: Sodium 134 mmol/L (133-145) 06/19/25 06:06 Potassium 5.4 mmol/L (3.3-5.1) H 06/19/25 06:06 Chloride 95 mmol/L (98-108) L 06/19/25 06:06 Carbon Dioxide 23.6 mmol/L (21.0-32.0) 06/19/25 06:06 Anion Gap 15 (5-15) 06/19/25 06:06 BUN 43 mg/dL (4-19) H 06/19/25 06:06 Creatinine 4.15 mg/dL (0.70-1.20) H 06/19/25 06:06 Est GFR (MDRD) Non-Af 10 (>60) L 06/19/25 06:06 BUN/Creatinine Ratio 10.4 RATIO (10-20) 06/19/25 06:06 Glucose 98 mg/dL (70-99) 06/19/25 06:06 Random Vancomycin 9.5 ug/mL (0.0-15.0) 06/19/25 06:06 Microbiology Microbiology: Microbiology 06/17/25 22:00 Wound - Heel Right Gram Stain - Final 06/17/25 22:00 Wound - Heel Right Skin and Soft Tissue MRSA/MSSA (PCR - Final Dosing Weight Weight used for dosin kg Estimated Creatinine Clearance Estimated Creatinine Clearance: ~ 10 Goal Trough Goal Trough: 15-20 mcg/mL Pharmacy Plan for Drug Dosing Pharmacy Plan for Drug Dosing: Vancomycin random level = 9.5, give 1000 mg IV x 1 this AM, random level tomorrow AM. Pharmacy Service will continue to monitor and adjust dosing as required. Follow-Up Labs Follow-Up Labs: Trough: Vancomycin Date/Time Labs Ordered Labs to be done on [date and time ordered]: 06/20/25 @ 0600
[2025-06-19 06:55] LABS: Differential Comment SCANNED
[2025-06-19 06:56] LABS: Anisocytosis 2+; Hypochromasia 2+
--- NOTE | 2025-06-19 07:25 | CON.PCM.SX_ITS ---
Assessment & Plan Assessment/Plan (1) PAD (peripheral artery disease): PLAN: Plan At present, with stable, superficial R heel ulceration without plan for surgical intervention from podiatry standpoint, no signs of acute ischemia, no indication for urgent vascular intervention and do not think CTA at this time is likely to change plan of care. With her diabetes and moderate PAD, she may require consideration of intervention on an outpatient basis pending progress towards wound healing with conservative efforts. However, if wounds significantly worsen or new concerns arise, could consider CTA for further vascular evaluation particularly given possible prior endovascular interventions. Will continue to follow while she remains inpatient; plan for now is for outpatient f/u in the office upon discharge. HPI Consult Data Date of Consult: 06/19/25 HPI Narrative HPI Narrative: YAO SANCHES, is a 79 F who had presented to the [facility] ER with R foot pain with associated R heel wound. She was admitted for podiatry evaluation and further management. She is currently in ICU due to hypotension suspected secondary to morphine administration in ER in conjunction with her ESRD as blood cultures have been negative. She has had a few prior admissions recently for fluid overload. She is on dialysis. She had outpatient XR that was concerning for R 1st digit osteomyelitis; however, no ulceration in this site to correspond to this and subsequent bone scan negative. She has superficial ulcerations/cracks in her bilateral heels which in discussion with wound care nurse is fairly stable from her last admission without significant worsening. Podiatry Dr. Caruso evaluated and felt no signs of osteomyelitis and no intervention indicated for her wounds from a podiatric standpoint. She had an arterial study which demonstrated R GILDA 0.83 with monophasic waveforms consistent with moderate arterial insufficiency. On my exam, she is receiving dialysis. She awakes to movement of her legs for exam, but is not participating in conversation, not answering questions. Her was not at bedside at the time of my visit. This has been her baseline per nursing. There was some report that she'd had possible prior lower extremity revascularization, possibly in [place]. On review of records in our system and [facility] I do not find record of this here; I do see a history of prior mesenteric artery stenting. On exam, I do not appreciate any surgical scars in the bilateral groin, bilateral legs, or chest that would be consistent with ax- fem, fem-fem, or fem-pop/PT bypass suggestive of open revascularization; possible she had endovascular intervention at outside facility or other state. On exam, she had some point tenderness around her R ankle; noted in podiatry note there is suspicion of possible gout. [facility] Medical History MONIQUE (acute kidney injury) Ulcer of left lower extremity with fat layer exposed Anemia of chronic renal failure, stage 3 (moderate) Iron deficiency anemia due to chronic blood loss History of ESBL E. coli infection Type 2 diabetes mellitus Ulcer of left foot with fat layer exposed Ulcer of right foot with fat layer exposed Ulcer of right lower extremity with fat layer exposed Acute on chronic heart failure with preserved ejection fraction Hypokalemia Fatigue Vitamin D deficiency Rheumatoid arthritis Insomnia Mitral valve regurgitation Tachy-lionel syndrome Rheumatic fever GERD (gastroesophageal reflux disease) Chronic renal failure (CRF), stage 3b Cervical cancer Iron deficiency anemia Non-sustained ventricular tachycardia Pulmonary hypertension Rectal bleed Presence of Watchman left atrial appendage closure device Pacemaker Sinus node dysfunction Bradycardia History of cardioversion Skin tear of left forearm without complication Skin cancer Cardiac arrhythmia CHF exacerbation Brain aneurysm Anxiety Family history of brain aneurysm PAD (peripheral artery disease) PAF (paroxysmal atrial fibrillation) Obesity (BMI 30.0-34.9) Laceration of right middle finger Heart disease Diabetes History of cancer Fever HTN (hypertension) Diabetes mellitus type 2 in obese Chest pain, musculoskeletal HLD (hyperlipidemia) URI (upper respiratory infection) Bronchospasm with bronchitis, acute Home Medications ?Medication ?Instructions ?Recorded ?Last Taken ?Type atorvastatin 40 mg tablet 40 mg PO DAILY daily 5 06/05/25 History metoprolol succinate 50 mg 50 mg PO BID blood pressure 02/05/25 06/06/25 History tablet,extended release 24 hr vitamin B complex 1 tab PO QDAY supplement 10/2706/06/25 History ascorbic acid (vitamin C) 500 mg 500 mg PO QDAY supple ment 02/14/25 06/05/25 History tablet aspirin 81 mg tablet,delayed 81 mg PO QDAY heart healt h 02/14/25 06/06/25 History release (Adult Aspirin Regimen) pantoprazole 40 mg tablet,delayed 40 mg PO QDAY stomac h 02/14/25 06/06/25 History release polysaccharide iron complex 150 mg 150 mg PO QDAY low iron 02/14/25 06/05/25 History iron capsule (Ferrex) levothyroxine 50 mcg tablet 50 mcg PO DAILY thyroid 06/06/25 History Allergy/AdvReac Type Severity Reaction Status Date / Time propofol AdvReac Mild Low blood Verified 06/17/25 15:48 pressure Family History Father Heart disease High cholesterol Myocardial infarction, Onset Age: 58 Mother Heart disease Surgical History Hx of abdominal surgery History of mastoidectomy History of cardiac radiofrequency ablation history skin cancer surgery history bilateral ear surgeries History of hysterectomy H/O aortic valve replacement Social History household members: spouse number of children: 1 current occupational status: 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 Smoking Status: Former smoker Tobacco: How many years used: 1 alcohol intake: current alcohol intake frequency: holidays/special occasions only Alcohol type: wine substance use type: does not use Physical Exam Const Constitutional Narrative: lethargic, woke up with manipulation of the R ankle but quickly fell back to sleep General Appearance: cooperative HEENT normocephalic Eyes General Eye: normal appearance of both eyes Neck Neck Narrative: R IJ tunneled catheter in place Resp normal respiratory effort Effort and Inspection: Negative for labored, grunting, stridor or audible wheezes Cardio regular rate and regular rhythm Extremity Extremity Narrative: R DP and PT pulses with monophasic doppler signal; no significant pallor, coolness. Superficial R heel ulceration with viable wound edges, no eschar/gangrenous changes. Neuro Sensorium / Orientation: lethargic Lab / Micro Data 06/19/25 06:06 06/19/25 06:06 Labs: Laboratory Results - last 24 hr 06/18/25 06:16: Uric Acid 4.3 06/18/25 11:52: POC Glucose 83 06/18/25 15:52: POC Glucose 68 L 06/18/25 22:56: POC Glucose 105 06/18/25 23:45: Urine Color Brown, Urine Clarity Turbid, Urine pH 6.0, Ur Specific [place] 1.015, Urine Protein 500 H, Urine Glucose (UA) Normal, Urine Ketones 5 H, Urine Occult Blood 250 H, Urine Nitrite Negative, Urine Bilirubin 1 H, Urine Urobilinogen Normal, Ur Leukocyte Esterase 500 H, Urine RBC 50-100 SEEN, Urine WBC >100 SEEN, Ur Squamous Epith Cells 0 SEEN, Urine Bacteria 2+, Urine Mucus 0 SEEN 06/19/25 06:06: WBC 11.7 H, RBC 3.01 L, Hgb 9.6 L, Hct 30.1 L, MCV 100.0 H, MCH 31.9, MCHC 31.9 L, RDW Std Deviation 74.8 H, RDW Coeff of Yonis 21.2 H, Plt Count 175, MPV 9.6, Immature Gran % (Auto) 1.000 H, Neut % (Auto) 71.0 H, Lymph % (Auto) 16.0 L, [place] % (Auto) 11.3 H, Eos % (Auto) 0.3, Baso % (Auto) 0.4, A bsolute Neuts (auto) 8.3 H, Absolute Lymphs (auto) 1.86, Nucleated RBC % 0.9, Differential Comment SCANNED, Hypochromasia 2+, Anisocytosis 2+, Sodium 134, P otassium 5.4 H, Chloride 95 L, Carbon Dioxide 23.6, Anion Gap 15, BUN 43 H, C reatinine 4.15 H, Estim Creat Clear Calc 10.44 L, Est GFR (MDRD) Non-Af 10 L, BUN/Creatinine Ratio 10.4, Glucose 98, Calcium 8.8, Random Vancomycin 9.5 Micro: Microbiology 06/17/25 22:00 Wound - Heel Right Gram Stain - Final 06/17/25 22:00 Wound - Heel Right Skin and Soft Tissue MRSA/MSSA (PCR - Final Imaging Radiology Impression Extremity Arterial Study 06/17/25 18:03 Interpretation Summary Right GILDA 0.83, moderate arterial insufficiency. Doppler/PVR waveforms of the right leg moderately diminished at rest. Left GILDA 0.66, moderate arterial insufficiency. Doppler/PVR waveforms of the left leg moderately diminished at rest. Ordering Physician: Imtiaz Melissa Referring Physician: Vincent Flores Chi Performed By: ADA HOU RVT Charges/Coding Visit Charges Inpatient E&M: 14043 Init Hosp L1
[2025-06-19] MEDS: Vancomycin HCl 1,000 MG in 0.9% Normal Saline (250mL Bag) 250 ML 250 MG IV (07:34)
[2025-06-19] MEDS: Heparin Injection (Vial) 5,000 UNIT/ML VIAL 5000 UNIT SC ×2 (07:35→21:53)
[2025-06-19] MEDS: Senna/Docusate Sodium 1 Tablet 2 TABLET PO ×2 (07:35→21:53)
[2025-06-19] MEDS: Aspirin E.C. 81 MG Tablet PO (07:35)
[2025-06-19] MEDS: Vitamin B Comp W-C Capsule 1 CAP PO (07:35)
--- NOTE | 2025-06-19 07:39 | PCM.PN.HOSP ---
Reason for Visit Chief Complaint: Right foot wound noticed for 1 week Objective Data Objective Data Vital Signs: Vital Signs Temp Pulse Resp BP Pulse Ox O2 Del Method O2 Flow Rate 98.0 F 90 14 94/45 L 98 Nasal Cannula 3 06/19/25 07:00 06/19/25 07:00 06/19/25 07:00 06/19/25 07:00 06/19/25 07:00 06/19/25 07:00 06/19/25 07:00 Oxygen Flow Rate (L/min) 3 Oxygen Delivery Method Nasal Cannula Weight: 158 lb 4.67 oz Body Mass Index (BMI) 28.0 Intake & Output: Intake and Output for Last 24 Hours 06/17/25 06/18/25 06/19/25 23:59 23:59 23:59 Intake Total 1879.40 / 1888.80 1055.45 / 1057.35 165.2 / 165.2 Output Total 5 / 5 Balance 1879.40 / 1888.80 1043.45 / 1045.35 160.2 / 160.2 Lab / Micro Data 06/19/25 06:06 06/19/25 06:06 Labs: Laboratory Results - last 24 hr 06/18/25 11:52: POC Glucose 83 06/18/25 15:52: POC Glucose 68 L 06/18/25 22:56: POC Glucose 105 06/18/25 23:45: Urine Color Brown, Urine Clarity Turbid, Urine pH 6.0, Ur Specific [place] 1.015, Urine Protein 500 H, Urine Glucose (UA) Normal, Urine Ketones 5 H, Urine Occult Blood 250 H, Urine Nitrite Negative, Urine Bilirubin 1 H, Urine Urobilinogen Normal, Ur Leukocyte Esterase 500 H, Urine RBC 50-100 SEEN, Urine WBC >100 SEEN, Ur Squamous Epith Cells 0 SEEN, Urine Bacteria 2+, Urine Mucus 0 SEEN 06/19/25 06:06: WBC 11.7 H, RBC 3.01 L, Hgb 9.6 L, Hct 30.1 L, MCV 100.0 H, MCH 31.9, MCHC 31.9 L, RDW Std Deviation 74.8 H, RDW Coeff of Yonis 21.2 H, Plt Count 175, MPV 9.6, Immature Gran % (Auto) 1.000 H, Neut % (Auto) 71.0 H, Lymph % (Auto) 16.0 L, [place] % (Auto) 11.3 H, Eos % (Auto) 0.3, Baso % (Auto) 0.4, Absolute Neuts (auto) 8.3 H, Absolute Lymphs (auto) 1.86, Nucleated RBC % 0.9, Differential Comment SCANNED, Hypochromasia 2+, Anisocytosis 2+, Sodium 134, Potassium 5.4 H, Chloride 95 L, Carbon Dioxide 23.6, Anion Gap 15, BUN 43 H, Creatinine 4.15 H, Estim Creat Clear Calc 10.44 L, Est GFR (MDRD) Non-Af 10 L, BUN/Creatinine Ratio 10.4, Glucose 98, Calcium 8.8, Random Vancomycin 9.5 Micro: Microbiology 06/17/25 22:00 Wound - Heel Right Gram Stain - Final 06/17/25 22:00 Wound - Heel Right Skin and Soft Tissue MRSA/MSSA (PCR - Final Radiography Diagnostic Testing: Radiology Impression Extremity Arterial Study 06/17/25 18:03 Interpretation Summary Right GILDA 0.83, moderate arterial insufficiency. Doppler/PVR waveforms of the right leg moderately diminished at rest. Left GILDA 0.66, moderate arterial insufficiency. Doppler/PVR waveforms of the left leg moderately diminished at rest. Ordering Physician: Imtiaz Melissa Referring Physician: Vincent Flores Chi Performed By: ADA HOU Henrietta Physical Exam Narrative Seen in exam Complain that right foot pain about 7-8/10 intensity increased on movement. On low-dose vasopressor. Afebrile. Heart rate 90/min. 3 L of oxygen Physical exam: General: Awake, awake, but fatigue and mild thyroid oriented x3, Cooperative HEENT:Uses hearing aid. Atraumatic, PERRLA, EOMI, Normocephalic. Oral: Oral mucosa dry. No Gingival or Mucosal Lesions/ Ulcerations Neck: Supple, No JVD, Negative Carotid Bruits Chest wall/Lungs: Air entry diminished in bilateral lung bases. No crepitation/rhonchi Cardiovascular: Regular paced rhythm, Normal S1,S2, No M/G/R. Decreased pulse in right popliteal and dorsalis pedis Abdomen: Bowel Sounds Present, Soft, Non Tender, Non-Distended : No dysuria. On HD, TTS. No renal angle tenderness. No suprapubic tenderness. Extremities: Bilateral lower leg/ankle pitting edema, capillary refill delayed Skin: Right heel ulcer, nonblanching skin, pale and thickened skin of right lower leg ventral aspect. Skin tear, Musculoskeletal: Tenderness to the right foot/heel. No Tenderness to Palpation of Joints or Extremities Neurological: Cranial nerves II-XII grossly intact, DTR 2+/4. No acute focal neurological deficit. Psych/Mental Status: Flat affect Assessment & Plan Assessment/Plan (1) Acute osteomyelitis of foot: PLAN: Plan This entire female is being admitted for acute on chronic osteomyelitis of right heel 1. Shock possible differential septic shock/distributive shock, exact etiology unclear: X-ray of right foot on 06/23/2025 reviewed. It is reported as a lytic lesion involving the distal medial aspect of first metatarsal bone measuring 13.6 x 6 mm in transverse dimension. This lytic lesion appears a sclerotic margin with soft tissue swelling. Bone demineralization present. ESR and CRP are elevated. Mild leukocytosis. Patient is started on IV vancomycin and Zosyn. Patient on surveillance monitor at 1 time 89 systolic but not charted. Monitor BP. IV fluid Ringer lactate 1 L ordered as patient is dehydrated. MRI of right foot ordered. 06/18: Overnight the patient remained hypotensive, SBP 83. Indicators of sepsis of renal dysfunction or hypotension, SBP less than 90, MAP less than 65 lactic acidosis leukocytosis with left shift. Lactic acid 3.1. Required vasopressor and hence transferred to ICU. Repeat lactic acid came 1.9 normal range. Patient maintaining blood pressure on Levophed 5 mcg/min. Discussed with wet sander and he thinks right heel does not have underlying point of infection/pus. The lytic/punched-out lesion in the first metatarsal is more from previous gout. He does not think patient has osteomyelitis but MRI foot is ordered. If MRI cannot be done then 3 phase bone scan. Bone scan is sensitive but not specific as MRI for osteomyelitis with leukocytosis with immature granulocytes 1.1%. Cleaning Maid consulted. 06/19: Patient going for bony scan. Earlier MRI was canceled because patient has wire in the brain. Still on low-dose vasopressin 2. Chronic HFpEF with right ventricular failure and moderate pulmonary hypertension: Chest x-ray done which shows cardiomegaly, pacemaker. Not suggestive of fluid overload but was admitted in first week of June for anasarca. Patient on metoprolol succinate, baby aspirin and atorvastatin continued. 2D echo in June 2025 shows EF 50% with normal ventricular size but moderately dilated RV, PASP 62 mmHg 06/19: Hold metoprolol 3. Chronic A-fib status post Watchman device: Patient not on anticoagulation due to history of GI bleed and Watchman device. Continue metoprolol. 4. Suspected PAD: Lower extremity arterial study ordered. Skin of right lower leg is thickened, pale and nonblanchable. Decreased pulsation of right posterior tibial and dorsalis. 5. DM type II: Her denies DM type II but glucose 129 mg/dL. Last A1c 7.8% suggestive of DM type II. Accu-Chek before meals and at bedtime with Humalog sliding scale coverage and hypoglycemia protocol. 6. Chronic chest flail: No acute issues 7. ESRD on hemodialysis: Wednesday and Wednesday. Retail Custodial Associate was consulted on admission. Patient has Vaughn catheter. Usually she makes some urine but no urine in Vaughn catheter since last night 06/19: 2 days of dialysis day 8. Anemia of chronic disease most likely due to ESRD: Patient hemoglobin fluctuates between 9 to 10 g. On PPI. Monitor CBC. On iron supplement DVT prophylaxis on heparin 5000 subcutaneous twice daily Living will/advanced directive/end of life care: Patient does have living will or advanced directive. Patient's present in the ED and is power of corporate associate attorney for health. After discussion of benefits/risks procedures involved with full code, DNR CC arrest and DNR CC, the patient and her opted for DNR CC arrest with no intubation Patient doesn't want artificial life support including intubation, tube feed, ventilator and/chest compression, and DC shock if needed but OK with central venous catheter and, vasopressor Total time spent in [id number] encounter in discussion of advanced directive 17 minutes. Laboratory Results 06/17/25 16:06: WBC 11.9 H, RBC 3.20 L, Hgb 10.0 L, Hct 31.9 L, MCV 99.7 H, MCH 31.3, MCHC 31.3 L, RDW Std Deviation 77.8 H, RDW Coeff of Yonis 21.4 H, Plt Count 183, MPV 10.2, Immature Gran % (Auto) 1.000 H, Neut % (Auto) 71.4 H, Lymph % (Auto) 15.0 L, [place] % (Auto) 11.4 H, Eos % (Auto) 0.7, Baso % (Auto) 0.5, Absolute Neuts (auto) 8.5 H, Absolute Lymphs (auto) 1.78, Nucleated RBC % 0.3, Differential Comment SCANNED, Polychromasia RARE, Anisocytosis 2+, Microcytosis 1+, Macrocytosis 1+, Ovalocytes RARE, ESR 48 H, Sodium 134, Potassium 4.7, Chloride 92 L, Carbon Dioxide 27.9, Anion Gap 14, BUN 31 H, Creatinine 3.20 H, Estim Creat Clear Calc 12.85 L, Est GFR (MDRD) Non-Af 14 L, BUN/Creatinine Ratio 9.5 L, Glucose 129 H, Calcium 8.8, C-React Prot Ext Range 82.90 H
--- NOTE | 2025-06-19 10:17 | PCM.PN.ID ---
Physical Exam Const no apparent distress Orientation / Consciousness: lethargic Resp normal air movement and clear to auscultation bilaterally Cardio regular rate Heart Sounds: murmur GI soft to palpation, non-tender and non-distended Skin no rashes or lesions noted ID ID: Route of nutrition/ use of supplements: [] Nutritional Intake: [] IV Site: [] Vaughn Catheter: [] Assessment & Plan Assessment/Plan (1) Pain in right foot: PLAN: Wbc better, no further hypothermia, bone scan pending, bcx neg so far. Recently started on HD. Will narrow to vanc/unasyn Will follow (2) Shock:
--- NOTE | 2025-06-19 11:17 | PCM.PN.TICU ---
Objective Data Objective Data Vital Signs: Vital Signs Last response Temperature 36.7 C 06/19/25 07:00 Temperature Source Core 06/19/25 07:00 Pulse Rate 90 06/19/25 07:00 Respiratory Rate 14 06/19/25 07:00 Respiratory Effort Normal, Non-Labored 06/19/25 08:00 Respiratory Depth Normal 06/19/25 08:00 Respiratory Pattern Normal 06/19/25 08:00 Blood Pressure 94/45 L 06/19/25 07:00 Blood Pressure Mean 61 06/19/25 07:00 Blood Pressure Source Monitor 06/19/25 07:00 Blood Pressure Position Semi-Fowlers 06/18/25 16:00 Blood Pressure Location Left Arm 06/18/25 16:00 Pulse Ox 99 06/19/25 09:24 Oxygen Delivery Method Nasal Cannula 06/19/25 09:24 Oxygen Flow Rate (L/min) 3 06/19/25 09:24 I&O: I&O Last 24 Hours 06/18/25 06/18/25 06/19/25 11:59 23:59 11:59 Intake Total 162.8 / 1057.35 892.65 / 1057.35 435.2 / 435.2 Output Total 0 / 12 5 / 5 Balance 162.8 / 1045.35 880.65 / 1045.35 430.2 / 430.2 I&O: Total Stay 06/17/25 15:46 thru 06/19/25 10:00 Intake Total 3370.05 Output Total 17 Balance 3353.05 Current Meds Ordered / Administered: Current meds ordered / Administered Generic Name Dose Route Start Last Admin Trade Name Reynaldo PRN Reason Stop Dose Admin Acetaminophen 1,000 mg 06/17/25 22:00 06/19/25 05:59 Acetaminophen 500 Mg Tablet PO 1,000 mg Q8 TOMAS Administration Ascorbic Acid 500 mg 06/18/25 08:00 06/19/25 07:35 Ascorbic Acid 500 Mg Tablet PO 500 mg BREAKFAST TOMAS Administration Aspirin 81 mg 06/18/25 08:00 06/19/25 07:35 Aspirin E.C. 81 Mg Tablet PO 81 mg BREAKFAST TOMAS Administration Atorvastatin Calcium 40 mg 06/18/25 10:00 06/19/25 07:36 Atorvastatin Calcium 40 Mg Tablet PO 40 mg DAILY TOMAS Administration Glucagon 1 mg 06/17/25 18:03 Glucagon 1 Mg/Ml Syringe IM X1 PRN Hypoglycemia Protocol Hemodialysis Solution 6 bag 06/19/25 12:00 Pureflow B 2k Dialysis Soln 1 Bag PF 06/19/25 21:49 UD TOMAS Protocol Heparin Sodium (Porcine) 5,000 unit 06/17/25 22:00 06/19/25 07:35 Heparin Injection (Vial) 5,000 Unit/Ml Vial SC 5,000 unit Q12 TOMAS Administration Heparin Sodium (Porcine) 1,000 - 3,000 units 06/19/25 12:00 Heparin 10,000 Units/10 Ml Vial IV 06/19/25 21:49 X1 PRN HD catheter closing Dextrose 250 mls @ 0 mls/hr 06/17/25 18:03 Dextrose 10%-Water IV .Q0M PRN HYPOGLYCEMIA Protocol As Directed Sodium Chloride 250 mls @ 15 mls/hr 06/17/25 18:40 06/18/25 16:28 IV Infused .[id number] PRN Infusion Saline Flush Sodium Chloride 250 mls @ 15 mls/hr 06/17/25 18:40 IV .[id number] PRN Additional IVPB Infusion Sodium Chloride 250 mls @ 15 mls/hr 06/17/25 18:46 IV .[id number] PRN Saline Flush Sodium Chloride 250 mls @ 15 mls/hr 06/17/25 18:46 IV .[id number] PRN Additional IVPB Infusion Norepinephrine Bitartrate 8 mg 250 mls @ 9.375 mls/hr 06/17/25 20:17 06/19/25 07:00 / Sodium Chloride CONT INF 1 mcg/min .[id number] TOMAS 1.9 mls/hr Protocol Titration 5 MCG/MIN Vancomycin IV-PHARMACY TO DOSE 500 mls @ 250 mls/hr 06/18/25 02:49 1 each/ Sodium Chloride IV DAILY PRN Rx to Dose Protocol Ampicillin Sodium/Sulbactam 100 mls @ 150 mls/hr 06/19/25 14:00 Sodium 3 gm/ Sodium Chloride IV Q24H [facility] Vancomycin HCl 500 mg/ Sodium 110 mls @ 100 mls/hr 06/19/25 18:00 Chloride IV 06/19/25 19:05 X1 ONE Insulin Human Lispro 0 unit 06/17/25 22:00 06/19/25 07:34 Insulin Lispro 100 Unit/Ml Insuln.Pen SC Not Given ACHS [facility] Protocol Levothyroxine Sodium 50 mcg 06/18/25 06:00 06/19/25 05:58 Levothyroxine 50 Mcg Tablet PO 50 mcg DAILY@0600 TOMAS Administration Melatonin 3 mg 06/17/25 17:28 Melatonin 3 Mg Tablet PO QHS PRN PRN INSOMNIA Midodrine 10 mg 06/18/25 12:00 06/19/25 07:35 Midodrine Hcl 5 Mg Tablet PO 10 mg TIDCM TOMAS Administration Multivitamins 1 cap 06/18/25 08:00 06/19/25 07:35 Vitamin B Comp W-C Capsule PO 1 cap DAILYCM TOMAS Administration Oxycodone HCl 2.5 - 5 mg 06/17/25 17:28 Oxycodone 5 Mg Tablet PO Q4H PRN PRN Pain Score 4-10 Pantoprazole Sodium 40 mg 06/18/25 10:00 06/19/25 07:35 Pantoprazole Sodium 40 Mg Tablet PO 40 mg DAILY TOMAS Administration Polysaccharide Iron Complex 150 mg 06/18/25 10:00 06/19/25 07:35 Iron Polysaccharide Complex 150 Mg Capsule PO 150 mg DAILY TOMAS Administration Senna/Docusate Sodium 2 tablet 06/17/25 22:00 06/19/25 07:35 Senna/Docusate Sodium 1 Tablet PO 2 tablet BID TOMAS Administration Sodium Chloride 10 - 40 ml 06/17/25 18:40 06/19/25 05:59 0.9% Saline Lock 10 Ml Syringe IV 10 ml UD PRN Administration SALINE FLUSH Sodium Chloride 10 - 40 ml 06/17/25 18:46 0.9% Saline Lock 10 Ml Syringe IV UD PRN SALINE FLUSH Vancomycin Protocol 1 lab 06/21/25 05:00 Vancomycin Trough/Random Due MC 06/21/25 07:00 DAILY [facility] Lab / Micro Data 06/19/25 06:06 06/19/25 06:06 Labs: Laboratory Results - last 24 hr 06/18/25 11:52: POC Glucose 83 06/18/25 15:52: POC Glucose 68 L 06/18/25 22:56: POC Glucose 105 06/18/25 23:45: Urine Color Brown, Urine Clarity Turbid, Urine pH 6.0, Ur Specific [place] 1.015, Urine Protein 500 H, Urine Glucose (UA) Normal, Urine Ketones 5 H, Urine Occult Blood 250 H, Urine Nitrite Negative, Urine Bilirubin 1 H, Urine Urobilinogen Normal, Ur Leukocyte Esterase 500 H, Urine RBC 50-100 SEEN, Urine WBC >100 SEEN, Ur Squamous Epith Cells 0 SEEN, Urine Bacteria 2+, Urine Mucus 0 SEEN 06/19/25 06:06: WBC 11.7 H, RBC 3.01 L, Hgb 9.6 L, Hct 30.1 L, MCV 100.0 H, MCH 31.9, MCHC 31.9 L, RDW Std Deviation 74.8 H, RDW Coeff of Yonis 21.2 H, Plt Count 175, MPV 9.6, Immature Gran % (Auto) 1.000 H, Neut % (Auto) 71.0 H, Lymph % (Auto) 16.0 L, [place] % (Auto) 11.3 H, Eos % (Auto) 0.3, Baso % (Auto) 0.4, Absolute Neuts (auto) 8.3 H, Absolute Lymphs (auto) 1.86, Nucleated RBC % 0.9, Differential Comment SCANNED, Hypochromasia 2+, Anisocytosis 2+, Sodium 134, Potassium 5.4 H, Chloride 95 L, Carbon Dioxide 23.6, Anion Gap 15, BUN 43 H, Creatinine 4.15 H, Estim Creat Clear Calc 10.44 L, Est GFR (MDRD) Non-Af 10 L, BUN/Creatinine Ratio 10.4, Glucose 98, Calcium 8.8, Random Vancomycin 9.5 Micro: Microbiology 06/17/25 22:00 Wound - Heel Right Gram Stain - Final 06/17/25 22:00 Wound - Heel Right Wound Culture - Preliminary No growth-Final to follow 06/17/25 22:00 Wound - Heel Right Skin and Soft Tissue MRSA/MSSA (PCR - Final Imaging Radiology Impression Extremity Arterial Study 06/17/25 18:03 Interpretation Summary Right GIDLA 0.83, moderate arterial insufficiency. Doppler/PVR waveforms of the right leg moderately diminished at rest. Left GILDA 0.66, moderate arterial insufficiency. Doppler/PVR waveforms of the left leg moderately diminished at rest. Ordering Physician: Imtiaz Melissa Referring Physician: Vincent Flores Chi Performed By: ADA HOU T Assessment and Plan . Assessment and plan: HPI 79-year-old female, with a history as outlined below, who presented to the emergency department on June 17 with complaints of a right lower extremity ulcer and associated swelling of approximately 1 weeks duration. The patient had just been discharged from the hospital on June 11, after having been admitted with fluid overload with anasarca secondary to end-stage renal disease. On presentation to the emergency department, the patient was noted to be afebrile and hemodynamically stable. Initial laboratory evaluation revealed a white blood cell count of 12,000 with a hemoglobin of 10.0 g/dL and platelet count of 183,000. Chemistry profile was notable for a lactate of 3.1. Foot x-ray demonstrated a lytic lesion involving the distal medial aspect of the first metatarsal bone potentially related to osteomyelitis. Blood cultures were subsequently obtained. A consultation was subsequently placed to podiatry. The patient was ultimately admitted to the hospital after being placed on antimicrobials. For reasons that are not entirely clear, it appears that the patient was given a one-time dose of IV morphine 6 mg in the emergency department prior to being admitted to the hospital. Shortly after her arrival to the hospital, the patient was noted to be hypotensive, for which she received a small amount of IV fluids. However, conservative fluid resuscitation was undertaken given the patient's underlying renal insufficiency. The patient ultimately developed fluid refractory hypotension, for which she was started on low-dose Levophed. The patient was then transferred to the medical intensive care unit for further management. During the evening hours of June 17, the patient had documented temperatures less than 96 ?F. The patient was seen in consultation by podiatry this morning, without any plans for any form of surgical intervention noted. 06/19/25 She is hypoactive and appears chronically ill Low dose NE for BP HD planned later today Undergoing further imaging for LE infection/osteo EXAM GEN NAD VS as above HEENT o/p clear NECK supple COR RRR CHEST CTA ABD soft EXT minimal edema SKIN w/d GUALBERTO NF A/P 1. Hypotension 2. RLE complicated skin/ST infection w/ osteomyelitis 3. ESRD 4. 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 Anemia -O2 as needed -NE as needed for BP -ABX - defer to ID -surgical evaluation ongoing for RLE -VTE ppx -HD scheduled today Critical Care Time: 50 minutes The entirety of this encounter was done via Telemedicine
--- NOTE | 2025-06-19 11:52 | PCM.PN.REN ---
Subjective Subjective Somewhat sleepy today. Objective Data Objective Data Vital Signs: Vital Signs Temp Pulse Resp BP Pulse Ox O2 Del Method O2 Flow Rate 97.8 F 96 14 114/46 L 98 Nasal Cannula 3 06/19/25 11:00 06/19/25 11:00 06/19/25 11:00 06/19/25 11:00 06/19/25 11:00 06/19/25 11:00 06/19/25 11:00 Oxygen Flow Rate (L/min) 3 Oxygen Delivery Method Nasal Cannula Weight: 71.8 kg Body Mass Index (BMI) 28.0 Intake & Output: Intake and Output for Last 24 Hours 06/17/25 06/18/25 06/19/25 23:59 23:59 23:59 Intake Total 1879.40 / 1888.80 1055.45 / 1057.35 442.8 / 442.8 Output Total 5 / 5 Balance 1879.40 / 1888.80 1043.45 / 1045.35 437.8 / 437.8 Lab / Micro Data 06/19/25 06:06 06/19/25 06:06 Labs: Laboratory Results - last 24 hr 06/18/25 11:52: POC Glucose 83 06/18/25 15:52: POC Glucose 68 L 06/18/25 22:56: POC Glucose 105 06/18/25 23:45: Urine Color Brown, Urine Clarity Turbid, Urine pH 6.0, Ur Specific [place] 1.015, Urine Protein 500 H, Urine Glucose (UA) Normal, Urine Ketones 5 H, Urine Occult Blood 250 H, Urine Nitrite Negative, Urine Bilirubin 1 H, Urine Urobilinogen Normal, Ur Leukocyte Esterase 500 H, Urine RBC 50-100 SEEN, Urine WBC >100 SEEN, Ur Squamous Epith Cells 0 SEEN, Urine Bacteria 2+, Urine Mucus 0 SEEN 06/19/25 06:06: WBC 11.7 H, RBC 3.01 L, Hgb 9.6 L, Hct 30.1 L, MCV 100.0 H, MCH 31.9, MCHC 31.9 L, RDW Std Deviation 74.8 H, RDW Coeff of Yonis 21.2 H, Plt Count 175, MPV 9.6, Immature Gran % (Auto) 1.000 H, Neut % (Auto) 71.0 H, Lymph % (Auto) 16.0 L, [place] % (Auto) 11.3 H, Eos % (Auto) 0.3, Baso % (Auto) 0.4, Absolute Neuts (auto) 8.3 H, Absolute Lymphs (auto) 1.86, Nucleated RBC % 0.9, Differential Comment SCANNED, Hypochromasia 2+, Anisocytosis 2+, Sodium 134, Potassium 5.4 H, Chloride 95 L, Carbon Dioxide 23.6, Anion Gap 15, BUN 43 H, Creatinine 4.15 H, Estim Creat Clear Calc 10.44 L, Est GFR (MDRD) Non-Af 10 L, BUN/Creatinine Ratio 10.4, Glucose 98, Calcium 8.8, Random Vancomycin 9.5 Micro: Microbiology 06/17/25 22:00 Wound - Heel Right Gram Stain - Final 06/17/25 22:00 Wound - Heel Right Wound Culture - Preliminary No growth-Final to follow 06/17/25 22:00 Wound - Heel Right Skin and Soft Tissue MRSA/MSSA (PCR - Final Radiography Diagnostic Testing: Radiology Impression Extremity Arterial Study 06/17/25 18:03 Interpretation Summary Right GILDA 0.83, moderate arterial insufficiency. Doppler/PVR waveforms of the right leg moderately diminished at rest. Left GILDA 0.66, moderate arterial insufficiency. Doppler/PVR waveforms of the left leg moderately diminished at rest. Ordering Physician: Imtiaz Melissa Referring Physician: Vincent Flores Chi Performed By: ADA HOU T Physical Exam Narrative no obvious distress no pallor no icterus no JVD s1s2 no murmurs lungs clear abdomen soft no organomegaly no edema Assessment & Plan Assessment/Plan (1) MONIQUE (acute kidney injury): PLAN: Acute renal failure CKD stage IV History of congestive heart failure Dialysis for today, see orders. Discussed with staff
[2025-06-19] MEDS: PureFlow B 2K Dialysis Soln 1 BAG 6 BAG PF (14:20)
--- NOTE | 2025-06-19 16:27 | PN.SURG_ITS ---
Subjective Subjective Patient is a 79-year-old female seen at bedside today for evaluation of bilateral heel wounds. Patient is mildly responsive. Did discuss with the treatment plan post discharge. Patient is still showing some discomfort to the heels which is most likely due to decreased blood flow. Overall the patient is improving. No other pedal complaints. Objective Data Objective Data Vital Signs: Vital Signs Temp Pulse Resp BP Pulse Ox O2 Del Method O2 Flow Rate 97.2 F L 99 16 117/62 100 Room Air 3 06/19/25 16:09 06/19/25 16:09 06/19/25 16:09 06/19/25 16:09 06/19/25 16:09 06/19/25 16:09 06/19/25 13:00 Oxygen Flow Rate (L/min) 3 Oxygen Delivery Method Room Air Weight: 70.5 kg Body Mass Index (BMI) 27.5 Intake & Output: Intake and Output for Last 24 Hours 06/17/25 06/18/25 06/19/25 23:59 23:59 23:59 Intake Total 1879.40 / 1888.80 1055.45 / 1057.35 448.50 / 448.50 Output Total 2295 / 2295 Balance 1879.40 / 1888.80 1043.45 / 1045.35 -1846.50 / -1846.50 Lab / Micro Data 06/19/25 06:06 06/19/25 06:06 Labs: Laboratory Results - last 24 hr 06/18/25 22:56: POC Glucose 105 06/18/25 23:45: Urine Color Brown, Urine Clarity Turbid, Urine pH 6.0, Ur Specific [place] 1.015, Urine Protein 500 H, Urine Glucose (UA) Normal, Urine Ketones 5 H, Urine Occult Blood 250 H, Urine Nitrite Negative, Urine Bilirubin 1 H, Urine Urobilinogen Normal, Ur Leukocyte Esterase 500 H, Urine RBC 50-100 SEEN, Urine WBC >100 SEEN, Ur Squamous Epith Cells 0 SEEN, Urine Bacteria 2+, Urine Mucus 0 SEEN 06/19/25 06:06: WBC 11.7 H, RBC 3.01 L, Hgb 9.6 L, Hct 30.1 L, MCV 100.0 H, MCH 31.9, MCHC 31.9 L, RDW Std Deviation 74.8 H, RDW Coeff of Yonis 21.2 H, Plt Count 175, MPV 9.6, Immature Gran % (Auto) 1.000 H, Neut % (Auto) 71.0 H, Lymph % (Auto) 16.0 L, [place] % (Auto) 11.3 H, Eos % (Auto) 0.3, Baso % (Auto) 0.4, A bsolute Neuts (auto) 8.3 H, Absolute Lymphs (auto) 1.86, Nucleated RBC % 0.9, Differential Comment SCANNED, Hypochromasia 2+, Anisocytosis 2+, Sodium 134, P otassium 5.4 H, Chloride 95 L, Carbon Dioxide 23.6, Anion Gap 15, BUN 43 H, C reatinine 4.15 H, Estim Creat Clear Calc 10.44 L, Est GFR (MDRD) Non-Af 10 L, BUN/Creatinine Ratio 10.4, Glucose 98, Calcium 8.8, Random Vancomycin 9.5 06/19/25 11:23: POC Glucose 84 Micro: Microbiology 06/17/25 22:00 Wound - Heel Right Gram Stain - Final 06/17/25 22:00 Wound - Heel Right Wound Culture - Preliminary No growth-Final to follow 06/17/25 22:00 Wound - Heel Right Skin and Soft Tissue MRSA/MSSA (PCR - Final Radiography Diagnostic Testing: Radiology Impression Bone Scan Nuclear Medicine 06/18/25 11:37 IMPRESSION: Three-phase bone scan is negative for osteomyelitis in the region of the 1st metatarsal. [facility] Physical Exam Narrative Vascular: DP and PT pulses are faintly palpable to the bilateral lower extremity. Skin temperature is warm to warm/cool from proximal ankles to distal digits to the bilateral lower extremity. No focal increase is appreciated to the right foot or ankle. Blanchable erythema is appreciated to the right heel. CFT is brisk. Neurological: Light touch is intact. Patient does respond to painful stimuli with palpation. Dermatological: Evidence of full-thickness wound to the right heel stable with no concerns of infection. Evidence of left heel fissure stable with no sign of infection. Musculoskeletal: Mild palpatory tenderness appreciated to the right heel. No pain on palpation to the left heel. Moderate pain with range of motion of the right ankle. No pain on palpation to the first metatarsal head of the right foot. No pain with calf compression bilateral. Assessment & Plan Assessment/Plan (1) Non-pressure chronic ulcer of right heel and midfoot with fat layer exposed: PLAN: Patient was examined and evaluated. All findings were discussed with the patient and her . All questions were answered to the patient satisfaction. Radiographs, right foot (06/13/2025): Evidence of osteolysis to the medial eminence of the fourth metatarsal consistent of chronic gout. Degenerative changes appreciated mildly throughout the midfoot. Lateral view shows degenerative changes throughout the rear foot. Moderately decreased joint space appreciated to the ankle and subtalar joint. Three-phase bone scan (06/19/2025): Negative for osteomyelitis in the region of the first metatarsal Arterial studies: Right lower extremity GILDA 0.83, moderate arterial insufficiency. Left GILDA 0.66, moderate arterial insufficiency. Wound care continue dressing changes with Betadine paint and dry sterile dressing. No compression. Continue to offload bilateral heels with pillows. WBC: 11.9 -> 14.0 -> 11.7 Uric acid: 4.3 ESR: 48 CRP: 82.9 HbA1c: 7.3 Glucose: 98 LA: 3.1 -> 1.9 Medicine: On board, medical management Ekg Manager: On board Infectious disease: Narrowing antibiotic coverage to vancomycin and Unasyn Nephrology: Plan for hemodialysis today. Vascular surgery: Plan for vascular intervention as outpatient. No plan for surgical intervention from a podiatry standpoint. Will recommend follow-up at wound care center for continued treatment and care. Review of the three-phase bone scan shows no concern for osteomyelitis to the right foot/first metatarsal. Arterial studies show concern for moderate arterial insufficiency to the bilateral lower extremity. Podiatry will continue to follow while the patient is in house. Please reach out to Dr. Caruso any question or concerns. (2) Other specified peripheral vascular diseases: (3) Osteoarthritis of right ankle: (4) Gout: QUALIFIERS: Gout site: ankle Chronicity: chronic Laterality: r ight
[2025-06-19] MEDS: Ampicillin/Sulbactam 3 GM in 0.9% Normal Saline (100mL MB+) 100 ML IV (16:43)
[2025-06-19] MEDS: Vancomycin HCl 500 MG in 0.9% Normal Saline (100mL Bag) 100 ML 100 MG IV (18:16)
--- NOTE | 2025-06-19 20:19 | NURSING ---
2010 spoke to son and daughter in law in length. answered all questions. Invited son to attend rounds. He plans to take off so he can be here for rounds. He is wanting a palliative consult, but he would like to be present for that conversation. He said his dad doesn't hear well and doesn't seek clarification sometimes.
[2025-06-20] VITALS (24 sets, daily range): BP systolic 87–132; BP diastolic 40–105; PULSE 86–103; RESP 10–24; TEMP 36.9–37.3; O2SAT 92–99; BMI 28.3
--- NOTE | 2025-06-20 08:31 | PCM.PN.HOSP ---
Reason for Visit Chief Complaint: Right foot wound noticed for 1 week Objective Data Objective Data Vital Signs: Vital Signs Temp Pulse Resp BP Pulse Ox O2 Del Method O2 Flow Rate 99.0 F 98 14 111/51 L 98 Nasal Cannula 3 06/20/25 05:00 06/20/25 06:00 06/20/25 06:00 06/20/25 06:00 06/20/25 08:04 06/20/25 08:04 06/20/25 08:04 Oxygen Flow Rate (L/min) 3 Oxygen Delivery Method Nasal Cannula Weight: 160 lb 4.417 oz Body Mass Index (BMI) 28.3 Intake & Output: Intake and Output for Last 24 Hours 06/18/25 06/19/25 06/20/25 23:59 23:59 23:59 Intake Total 1055.45 / 1057.35 681.80 / 681.80 Output Total 2300 / 2300 10 Balance 1043.45 / 1045.35 -1618.20 / -1618.20 -10 / -10 Lab / Micro Data 06/19/25 06:06 06/19/25 06:06 Labs: Laboratory Results - last 24 hr 06/19/25 11:23: POC Glucose 84 06/19/25 16:42: POC Glucose 68 L 06/19/25 22:04: POC Glucose 176 H Micro: Microbiology 06/17/25 22:00 Wound - Heel Right Gram Stain - Final 06/17/25 22:00 Wound - Heel Right Wound Culture - Preliminary No growth-Final to follow 06/17/25 22:00 Wound - Heel Right Skin and Soft Tissue MRSA/MSSA (PCR - Final Radiography Diagnostic Testing: Radiology Impression Bone Scan Nuclear Medicine 06/18/25 11:37 IMPRESSION: Three-phase bone scan is negative for osteomyelitis in the region of the 1st metatarsal. Reading Location: [facility] Physical Exam Narrative Seen in exam Complain that right foot pain about 7-8/10 intensity increased on movement. On low-dose vasopressor. Afebrile. Heart rate 90/min. 3 L of oxygen Physical exam: General: Confused today. Disoriented. Awake. fatigue Cooperative HEENT:Uses hearing aid. Atraumatic, PERRLA, EOMI, Normocephalic. Oral: Oral mucosa dry. No Gingival or Mucosal Lesions/ Ulcerations Neck: Supple, No JVD, Negative Carotid Bruits Chest wall/Lungs: Air entry diminished in bilateral lung bases. No crepitation/rhonchi Cardiovascular: Regular paced rhythm, Normal S1,S2, No M/G/R. Decreased pulse in right popliteal and dorsalis pedis Abdomen: Bowel Sounds Present, Soft, Non Tender, Non-Distended : No dysuria. On HD, TTS. No renal angle tenderness. No suprapubic tenderness. Extremities: Bilateral lower leg/ankle pitting edema, capillary refill delayed Skin: Right heel ulcer, nonblanching skin, pale and thickened skin of right lower leg ventral aspect. Ulcer in the upper mid thoracic spine superficial Musculoskeletal: Tenderness to the right foot/heel. No Tenderness to Palpation of Joints or Extremities Neurological: Cranial nerves II-XII grossly intact, DTR 2+/4. No acute focal neurological deficit. Psych/Mental Status: Flat affect Assessment & Plan Assessment/Plan (1) Acute osteomyelitis of foot: PLAN: Plan This entire female is being admitted for acute on chronic osteomyelitis of right heel 1. Shock possible differential septic shock/distributive shock, exact etiology unclear: X-ray of right foot on 06/23/2025 reviewed. It is reported as a lytic lesion involving the distal medial aspect of first metatarsal bone measuring 13.6 x 6 mm in transverse dimension. This lytic lesion appears a sclerotic margin with soft tissue swelling. Bone demineralization present. ESR and CRP are elevated. Mild leukocytosis. Patient is started on IV vancomycin and Zosyn. Patient on communications department chair at 1 time 89 systolic but not charted. Monitor BP. IV fluid Ringer lactate 1 L ordered as patient is dehydrated. MRI of right foot ordered. 06/18: Overnight the patient remained hypotensive, SBP 83. Indicators of sepsis of renal dysfunction or hypotension, SBP less than 90, MAP less than 65 lactic acidosis leukocytosis with left shift. Lactic acid 3.1. Required vasopressor and hence transferred to ICU. Repeat lactic acid came 1.9 normal range. Patient maintaining blood pressure on Levophed 5 mcg/min. Discussed with joint finisher and he thinks right heel does not have underlying point of infection/pus. The lytic/punched-out lesion in the first metatarsal is more from previous gout. He does not think patient has osteomyelitis but MRI foot is ordered. If MRI cannot be done then 3 phase bone scan. Bone scan is sensitive but not specific as MRI for osteomyelitis with leukocytosis with immature granulocytes 1.1%. Wheat Combine Driver consulted. 06/19: Patient going for bony scan. Earlier MRI was canceled because patient has wire in the brain. Still on low-dose vasopressin 06/20 bone scan was negative for osteomyelitis. 2. Chronic HFpEF with right ventricular failure and moderate pulmonary hypertension: Chest x-ray done which shows cardiomegaly, pacemaker. Not suggestive of fluid overload but was admitted in first week of June for anasarca. Patient on metoprolol succinate, baby aspirin and atorvastatin continued. 2D echo in June 2025 shows EF 50% with normal ventricular size but moderately dilated RV, PASP 62 mmHg 06/19: Hold metoprolol 06/20: On 3 L of oxygen. BP 111/51. Sinus rhythm 3. Chronic A-fib status post Watchman device: Patient not on anticoagulation due to history of GI bleed and Watchman device. Continue metoprolol. 4. Suspected PAD: Lower extremity arterial study ordered. Skin of right lower leg is thickened, pale and nonblanchable. Decreased pulsation of right posterior tibial and dorsalis. 5. DM type II: Her denies DM type II but glucose 129 mg/dL. Last A1c 7.8% suggestive of DM type II. Accu-Chek before meals and at bedtime with Humalog sliding scale coverage and hypoglycemia protocol. 6. Chronic chest flail: No acute issues 7. ESRD on hemodialysis: Wednesday and Wednesday. Liability Claims Representative was consulted on admission. Patient has Vaughn catheter. Usually she makes some urine but no urine in Vaughn catheter since last night 06/19: 2 days of dialysis day 06/20: Patient to had dialysis yesterday. Generalized swelling of upper thigh, lower abdominal wall subcutaneous tissue. 8. Anemia of chronic disease most likely due to ESRD: Patient hemoglobin fluctuates between 9 to 10 g. On PPI. Monitor CBC. On iron supplement 06/20 hemoglobin 9.6. DVT prophylaxis on heparin 5000 subcutaneous twice daily Living will/advanced directive/end of life care: Patient does have living will or advanced directive. Patient's present in the ED and is power of attorney lawyer for health. After discussion of benefits/risks procedures involved with full code, DNR CC arrest and DNR CC, the patient and her opted for DNR CC arrest with no intubation Patient doesn't want artificial life support including intubation, tube feed, ventilator and/chest compression, and DC shock if needed but OK with central venous catheter and, vasopressor Total time spent in [id number] encounter in discussion of advanced directive 17 minutes. Laboratory Results 06/17/25 16:06: WBC 11.9 H, RBC 3.20 L, Hgb 10.0 L, Hct 31.9 L, MCV 99.7 H, MCH 31.3, MCHC 31.3 L, RDW Std Deviation 77.8 H, RDW Coeff of Yonis 21.4 H, Plt Count 183, MPV 10.2, Immature Gran % (Auto) 1.000 H, Neut % (Auto) 71.4 H, Lymph % (Auto) 15.0 L, [place] % (Auto) 11.4 H, Eos % (Auto) 0.7, Baso % (Auto) 0.5, Absolute Neuts (auto) 8.5 H, Absolute Lymphs (auto) 1.78, Nucleated RBC % 0.3, Differential Comment SCANNED, Polychromasia RARE, Anisocytosis 2+, Microcytosis 1+, Macrocytosis 1+, Ovalocytes RARE, ESR 48 H, Sodium 134, Potassium 4.7, Chloride 92 L, Carbon Dioxide 27.9, Anion Gap 14, BUN 31 H, Creatinine 3.20 H, Estim Creat Clear Calc 12.85 L, Est GFR (MDRD) Non-Af 14 L, BUN/Creatinine Ratio 9.5 L, Glucose 129 H, Calcium 8.8, C-React Prot Ext Range 82.90 H Charges/Coding Visit Charges Inpatient E&M: 52828 Subs Hosp L3
[2025-06-20] MEDS: Vitamin B Comp W-C Capsule 1 CAP PO (08:44)
[2025-06-20] MEDS: Aspirin E.C. 81 MG Tablet PO (08:45)
--- NOTE | 2025-06-20 09:13 | CT_ITS ---
PROCEDURE: BRAIN/HEAD WITHOUT CONTRAST 06/20/2025 REASON FOR EXAM: CONFUSION, WORSENING TECHNIQUE: Procedure Code: CTBR Modality: CT Procedure: BRAIN/HEAD WITHOUT CONTRAST Coronal and Sagittal reconstruction series were provided. One or more dose reduction techniques were used (e.g., Automated exposure control, adjustment of the mA and/or kV according to patient size, use of iterative reconstruction technique. 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 No acute hemorrhage. No acute infarct. Chronic lacunar infarct in the left basal ganglia. No significant mass effect or brain herniation. The ventricular system and sulci/fissures are within normal limits of size and configuration for the patient's stated age. No extra-axial fluid collection. The basal cisterns are patent. Under pneumatization and sclerosis of the bilateral mastoid air cells which may reflect chronic otomastoiditis. The paranasal sinuses are predominantly clear. The calvarium appears intact. Atherosclerotic calcification of the carotid siphons and intradural vertebral arteries. 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 Otherwise, no CT evidence of acute intracranial hemorrhage or infarct. Reading Location: [id number]
--- NOTE | 2025-06-20 10:03 | CASEMGMT ---
Addendum entered by Florence Infante 06/20/25 10:23: Pt's son calls this technical proposal writer and states that he and the pt's will be in around 0830 tomorrow and would like to talk with the Palliative Care liaison. Gina notified. Original Note: Per ICU rounds, Dr Melissa requests inpt Palliative Care consult. Order placed and notified Gina at this time.
--- NOTE | 2025-06-20 10:50 | PCM.PN.TICU ---
Objective Data Objective Data Vital Signs: Vital Signs Last response Temperature 37.2 C 06/20/25 09:00 Temperature Source Core 06/20/25 09:00 Pulse Rate 99 06/20/25 10:00 Pulse Strength Doppler 06/20/25 10:00 Respiratory Rate 20 H 06/20/25 10:00 Respiratory Effort Normal, Non-Labored 06/20/25 04:00 Respiratory Depth Normal 06/20/25 04:00 Respiratory Pattern Normal 06/20/25 04:00 Blood Pressure 120/105 H 06/20/25 10:00 Blood Pressure Mean 110 06/20/25 10:00 Blood Pressure Source Monitor 06/20/25 10:00 Blood Pressure Position Semi-Fowlers 06/20/25 10:00 Blood Pressure Location Left Arm 06/20/25 10:00 Pulse Ox 98 06/20/25 10:00 Oxygen Delivery Method Nasal Cannula 06/20/25 10:00 Oxygen Flow Rate (L/min) 3 06/20/25 10:00 I&O: I&O Last 24 Hours 06/19/25 06/19/25 06/20/25 11:59 23:59 11:59 Intake Total 442.8 / 681.80 239.00 / 681.80 Output Total 0 2295 / 2300 10 10 Balance 437.8 / -1618.20 -2056.00 / -1618.20 -10 / -10 I&O: Total Stay 06/17/25 15:46 thru 06/20/25 06:00 Intake Total 3616.65 Output Total 2322 Balance 1294.65 Current Meds Ordered / Administered: Current meds ordered / Administered Generic Name Dose Route Start Last Admin Trade Name Reynaldo PRN Reason Stop Dose Admin Acetaminophen 1,000 mg 06/17/25 22:00 06/20/25 05:30 Acetaminophen 500 Mg Tablet PO Not Given Q8 TOMAS Ascorbic Acid 500 mg 06/18/25 08:00 06/20/25 08:44 Ascorbic Acid 500 Mg Tablet PO 500 mg BREAKFAST TOMAS Administration Aspirin 81 mg 06/18/25 08:00 06/20/25 08:45 Aspirin E.C. 81 Mg Tablet PO 81 mg BREAKFAST TOMAS Administration Atorvastatin Calcium 40 mg 06/18/25 10:00 06/19/25 07:36 Atorvastatin Calcium 40 Mg Tablet PO 40 mg DAILY TOMAS Administration Glucagon 1 mg 06/17/25 18:03 Glucagon 1 Mg/Ml Syringe IM X1 PRN Hypoglycemia Protocol Heparin Sodium (Porcine) 5,000 unit 06/19/25 22:00 06/19/25 21:53 Heparin Injection (Vial) 5,000 Unit/Ml Vial SC 5,000 unit Q12 TOMAS Administration Heparin Sodium (Porcine) 1,000 - 3,000 units 06/20/25 07:48 Heparin 10,000 Units/10 Ml Vial IV 06/20/25 19:48 X1 PRN HD catheter closing Dextrose 250 mls @ 0 mls/hr 06/17/25 18:03 Dextrose 10%-Water IV .Q0M PRN HYPOGLYCEMIA Protocol As Directed Sodium Chloride 250 mls @ 15 mls/hr 06/17/25 18:40 06/18/25 16:28 IV Infused .[id number] PRN Infusion Saline Flush Sodium Chloride 250 mls @ 15 mls/hr 06/17/25 18:40 IV .[id number] PRN Additional IVPB Infusion Sodium Chloride 250 mls @ 15 mls/hr 06/17/25 18:46 IV .[id number] PRN Saline Flush Sodium Chloride 250 mls @ 15 mls/hr 06/17/25 18:46 IV .[id number] PRN Additional IVPB Infusion Norepinephrine Bitartrate 8 mg 250 mls @ 9.375 mls/hr 06/17/25 20:17 06/20/25 02:58 / Sodium Chloride CONT INF Not Given .[id number] TOMAS Protocol 5 MCG/MIN Vancomycin IV-PHARMACY TO DOSE 500 mls @ 250 mls/hr 06/18/25 02:49 1 each/ Sodium Chloride IV DAILY PRN Rx to Dose Protocol Ampicillin Sodium/Sulbactam 100 mls @ 150 mls/hr 06/19/25 14:00 06/19/25 17:34 Sodium 3 gm/ Sodium Chloride IV Infused Q24H TOMAS Infusion Insulin Human Lispro 0 unit 06/17/25 22:00 06/20/25 08:45 Insulin Lispro 100 Unit/Ml Insuln.Pen SC Not Given ACHS TOMAS Protocol Levothyroxine Sodium 50 mcg 06/18/25 06:00 06/20/25 05:29 Levothyroxine 50 Mcg Tablet PO 50 mcg DAILY@0600 TOMAS Administration Melatonin 3 mg 06/17/25 17:28 Melatonin 3 Mg Tablet PO QHS PRN PRN INSOMNIA Midodrine 10 mg 06/18/25 12:00 06/20/25 08:44 Midodrine Hcl 5 Mg Tablet PO 10 mg TIDCM TOMAS Administration Multivitamins 1 cap 06/18/25 08:00 06/20/25 08:44 Vitamin B Comp W-C Capsule PO 1 cap DAILYCM TOMAS Administration Oxycodone HCl 2.5 - 5 mg 06/17/25 17:28 Oxycodone 5 Mg Tablet PO Q4H PRN PRN Pain Score 4-10 Pantoprazole Sodium 40 mg 06/20/25 10:00 Pantoprazole Sodium 40 Mg Tablet PO DAILY TOMAS Polysaccharide Iron Complex 150 mg 06/18/25 10:00 06/19/25 07:35 Iron Polysaccharide Complex 150 Mg Capsule PO 150 mg DAILY TOMAS Administration Senna/Docusate Sodium 2 tablet 06/17/25 22:00 06/19/25 21:53 Senna/Docusate Sodium 1 Tablet PO 2 tablet BID TOMAS Administration Sodium Chloride 10 - 40 ml 06/17/25 18:40 06/19/25 05:59 0.9% Saline Lock 10 Ml Syringe IV 10 ml UD PRN Administration SALINE FLUSH Sodium Chloride 10 - 40 ml 06/17/25 18:46 0.9% Saline Lock 10 Ml Syringe IV UD PRN SALINE FLUSH Sodium Chloride 200 ml 06/20/25 07:48 0.9% Normal Saline 1,000 Ml Iv.Soln. IV 06/20/25 19:48 X1 PRN to maintain SBP >90mmHg during Dialysis Vancomycin Protocol 1 lab 06/21/25 05:00 Vancomycin Trough/Random Due 06/21/25 07:00 DAILY [facility] Lab / Micro Data 06/19/25 06:06 06/19/25 06:06 Labs: Laboratory Results - last 24 hr 06/19/25 11:23: POC Glucose 84 06/19/25 16:42: POC Glucose 68 L 06/19/25 22:04: POC Glucose 176 H 06/20/25 08:40: POC Glucose 125 H Micro: Microbiology 06/17/25 22:00 Wound - Heel Right Gram Stain - Final 06/17/25 22:00 Wound - Heel Right Wound Culture - Preliminary No growth-Final to follow 06/17/25 22:00 Wound - Heel Right Skin and Soft Tissue MRSA/MSSA (PCR - Final Imaging Radiology Impression Bone Scan Nuclear Medicine 06/18/25 11:37 IMPRESSION: Three-phase bone scan is negative for osteomyelitis in the region of the 1st metatarsal. 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 Otherwise, no CT evidence of acute intracranial hemorrhage or infarct. Reading Location: [id number] Assessment and Plan . Assessment and plan: 1. Hypotension: resolved. Got small fluid boluses. BP excellen today. 2. RLE complicated skin/ST infection w/ osteomyelitis: podiatry following. Antibxs per primary team. 3. 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 HD 06/19. 4. AMS: awake and in pain on admit. Received cummulatively 6 mg of morphine. Confused thereafter. More confused today per nursing. Non-focal. CT head unrevealing. Neuro to eval. Check NH3/folate/B12/TSH. 5. UTI: f/u cultures. continue Unasyn and vanc. 6. HX of Moderate PAH 7. Hx of Mitral valve disease: MS and MR 8. FEN: NPO given mental status 9. PX: SQ heparin Matt Zuniga MD Critical Care Time: 50 minutes The entirety of this encounter was done via Telemedicine Physical Exam Narrative HEENT o/p clear NECK supple COR RRR CHEST CTA ABD soft EXT minimal edema SKIN w/d GUALBERTO NF Subjective Subjective more confused today. CT head unrevealing
--- NOTE | 2025-06-20 11:34 | PCM.CONS.P ---
[facility] Medical History ESRD (end stage renal disease) Debility Elevated troponin I level Chronic kidney disease, stage 3b Anasarca MONIQUE (acute kidney injury) Ulcer of left lower extremity with fat layer exposed Anemia of chronic renal failure, stage 3 (moderate) Iron deficiency anemia due to chronic blood loss History of ESBL E. coli infection Type 2 diabetes mellitus Ulcer of left foot with fat layer exposed Ulcer of right foot with fat layer exposed Ulcer of right lower extremity with fat layer exposed Acute on chronic heart failure with preserved ejection fraction Hypokalemia Fatigue Vitamin D deficiency Rheumatoid arthritis Insomnia Mitral valve regurgitation Tachy-lionel syndrome Rheumatic fever GERD (gastroesophageal reflux disease) Chronic renal failure (CRF), stage 3b Cervical cancer Iron deficiency anemia Non-sustained ventricular tachycardia Pulmonary hypertension Rectal bleed Presence of Watchman left atrial appendage closure device Pacemaker Sinus node dysfunction Bradycardia History of cardioversion Skin tear of left forearm without complication Skin cancer Cardiac arrhythmia CHF exacerbation Brain aneurysm Anxiety Family history of brain aneurysm PAD (peripheral artery disease) PAF (paroxysmal atrial fibrillation) Obesity (BMI 30.0-34.9) Laceration of right middle finger Heart disease Diabetes History of cancer Fever HTN (hypertension) Diabetes mellitus type 2 in obese Chest pain, musculoskeletal HLD (hyperlipidemia) URI (upper respiratory infection) Bronchospasm with bronchitis, acute Home Medications ?Medication ?Instructions ?Recorded ?Last Taken ?Type atorvastatin 40 mg tablet 40 mg PO DAILY daily 01/07/25 06/05/25 History metoprolol succinate 50 mg 50 mg PO BID blood pressure 02/05/25 06/06/25 History tablet,extended release 24 hr vitamin B complex 1 tab PO QDAY supplement 02/05/25 06/06/25 History ascorbic acid (vitamin C) 500 mg 500 mg PO QDAY supplement 02/14/25 06/05/25 History tablet aspirin 81 mg tablet,delayed 81 mg PO QDAY heart health 02/14/25 06/06/25 History release (Adult Aspirin Regimen) pantoprazole 40 mg tablet,delayed 40 mg PO QDAY stomach 02/14/25 06/06/25 History release polysaccharide iron complex 150 mg 150 mg PO QDAY low iron 02/14/25 06/05/25 History iron capsule (Ferrex) levothyroxine 50 mcg tablet 50 mcg PO DAILY thyroid 03/01/25 06/06/25 History Allergy/AdvReac Type Severity Reaction Status Date / Time propofol AdvReac Mild Low blood Verified 06/17/25 15:48 pressure Family History Father Heart disease High cholesterol Myocardial infarction, Onset Age: 58 Mother Heart disease Surgical History Hx of abdominal surgery History of mastoidectomy History of cardiac radiofrequency ablation history skin cancer surgery history bilateral ear surgeries History of hysterectomy H/O aortic valve replacement Social History household members: spouse number of children: 1 current occupational status: 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 Pts translates for her by yelling into her L ear during conversation Constitutional Constitutional: Reports weakness Eyes Eyes: Reports systems reviewed and no addt'l complaints, except as documented and none ENT HEENT: Reports abnormal hearing and other Details: hard of hearing. Has hearing aides. Cardiovascular Cardiovascular: Reports arrhythmia on telemetry and edema Respiratory/Chest Respiratory/Chest: Reports as per HPI Gastrointestinal Gastrointestinal: Reports systems reviewed and no addt'l complaints, except as documented Genitourinary Genitourinary: Reports other Details: ESRD, has a catheter with turbid appearing urine (very small amount) Musculoskeletal Musculoskeletal: Reports extremity pain, joint pain and other Details: heel pain Integumentary Integumentary: Reports wounds Neurologic Neurologic: Reports abnormal gait Psychiatric Psychiatric: Reports as per HPI Endocrine Endocrinology: Reports systems reviewed and no addt'l complaints, except as documented Hematologic/Lymphatic Hematologic/Lymphatic: Reports systems reviewed and no addt'l complaints, except as documented Allergic/Immunologic Allergic/Immunologic: Reports systems reviewed and no addt'l complaints, except as documented Physical Exam Const alert Constitutional Narrative: sleepy intermittently General Appearance: cooperative HEENT normocephalic General Ear: hearing grossly impaired Lymph Lymphatic: lymphedema Resp normal respiratory effort Resp Narrative: NC at 3 liters Auscultation: diminished lung sounds Cardio Cardio Narrative: murmur noted Rhythm: abnormal rhythm other (multiple PVC's ) GI soft to palpation Extremity normal capillary refill Skin Wounds: wounds noted other r foot erythema Neuro Speech: speech normal Psych affect normal Psych Narrative: sleepy Charges/Coding Palliative Care Palliative Care: [id number] New Pt Consult 80+ min HPI Current admission Current Code Status: DNR CCA no intubation Associated Diagnosis: AMS, ESRD Consult Data Date of Consult: 06/20/25 Location of consult: ICU Reason for referral: goals of care Referral source: Dr. Ford Palliative care diagnosis (Summary list): ESRD, lethargic Palliative care services/treatment (Accepted, as consult): initially accepted but then they did request me to not come back HPI Narrative HPI Narrative: PAIN ASSESSMENT: Denies pain Prior to meeting with the patient and family at bedside I reviewed labs, radiological studies and extensive documentation. I also met with manager costing, Kassandra, whom stated that the patient's son was interested in palliative care consult. Son is currently not at bedside but will be back at 8:30 in the morning. We then met with the patient Berta and her Natanael at bedside along with 2 friends that were at bedside. I introduced myself and the concept of palliative care which they voluntarily excepted our services. Berta is very hard of hearing. Berta was able to tell me her name and it took her a very long time but she was unable to tell me her date of . She did have difficulty with the city she was in but that she was able to tell me the year without difficulty. She was able to tell me that she was in a hospital. I was able to get background information from Berta that she did state that she was utilizing a wheelchair at home which was incorrect she was using a walker with wheels. Berta is very hard of hearing and Natanael was translating to her what was being said and yelling into her ear. I did ask if she has hearing aides and he stated that they were in. I did ask if we were able to turn them up to assist in her hearing and he stated that her hearing is selective and did not want to adjust them. During our conversation Berta I looked at her and stated just let me go. I then asked her to clarify what that meant. Sultana then asked her go where? And she said to [facility] Then asked her why she said that and she said it is just a feeling and I know I am getting ready. I then started talking to Berta about what that would look like for her. I did explain that hospice was an option for her if she so chose but that would mean discontinuing dialysis and lieu of comfort. Natanael then stated that he would override her decision. I did explain to him that from an apical standpoint, if a patient is alert and oriented being able to make decisions for themselves and we need to honor those decisions when they are made. Natanael then stated I am the power of associate attorney and I will make those decisions. I then explained to Natanael when POA's are utilized, if a patient is unable to make decisions for themselves. She said we will just see about that. I then explained to him that we are bound by ethics to honor patient wishes and that as a POA, he is the decision maker if she is unable to make decisions for herself. He then stated that I was making him angry and that the conversation was over and that I needed to leave. I did ask if I could perform a phyical assessment on Berta in which he was agreeable. Natanael then told the nurse that I was no longer allowed into his 's room. I did update ANDREWS/JOSUÉ as well as Dr. Melissa. Dialysis nursing stated that they have had similar conversations with the , as well. I did let SW and CM know that I am unable to contact the son, who wanted the consult because I am no longer on this patients case. I did thank the pt and for their time. Palliative care is signing off. Per hospitalist: BERTA SANCHES, is a 79 F with multiple comorbidities came to ED with right foot swelling, ulcer noticed about 1 week. Patient has pain localized over heel with radiation to proximal about 9/10 intensity for 3 days. She had x-ray done earlier which raise the concern for osteomyelitis. She had intermittent right heel ulcer since September this year and was in [place] for most 1 month for treatment of ulcer this year 2024. Denies fever or chills but looks dehydrated. In ED, initially heart rate and blood pressure normal 113/65, heart rate 71 but last pressure on the monitor shows his BP 89 mmHg. 1 L Ringer lactate ordered. Portable chest x-ray and twelve-lead EKG ordered and further patient admitted. Patient got 1 dose of IV Zosyn in ED. Palliative Assessment Advanced Directive - Current Admission Advance Directive: Advance Directive ON ADMISSION - REFERENCE Do you have a Healthcare Yes 06/17/25 18:41 Living Will? Is a Healthcare Living Will No, requested patient 06/17/25 18:41 present in the medical record? artists' booking representative bring copy into [facility] Do you have a Healthcare Power Yes 06/17/25 18:41 of Healthcare Administrator? Is a Healthcare Power of No, requested patient 06/17/25 18:41 Healthcare Administrator present in the artists' booking representative bring copy medical rec into [facility] Do You Want Additional Declined 06/17/25 18:41 Information on Advanced Directives or Healthcare Proxy/DPOA comments: Natanael Psychosocial/Spiritual Information Living situation/Marital status: and lives with Geographic location: [place] Supports: Family and friends Taoist/Kelsea or spiritual preference: Oriental Orthodox Spiritual distress: Denies Prior functional status: Patient is able to perform her own ADLs Assistive devices at home: Walker Cultrual issues: None Information about the patient as a person: Patient enjoys cooking Symptoms Palliative performance scale: current: 20-30% 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% Palliative prognostic index: 8.0 Dyspnea symptoms: Mild Fatigue symptoms: Moderate Weakness symptoms: Severe Confusion symptoms: Mild Objective Data Objective Data Vital Signs: Vital Signs Temp Pulse Resp BP Pulse Ox O2 Del Method O2 Flow Rate 99.0 F 99 20 H 120/105 H 98 Nasal Cannula 3 06/20/25 09:00 06/20/25 10:00 06/20/25 10:00 06/20/25 10:00 06/20/25 10:00 06/20/25 10:00 06/20/25 10:00 Oxygen Flow Rate (L/min) 3 Oxygen Delivery Method Nasal Cannula Weight: 160 lb 4.417 oz Body Mass Index (BMI) 28.3 Intake & Output: Intake and Output for Last 24 Hours 06/18/25 06/19/25 06/20/25 23:59 23:59 23:59 Intake Total 1055.45 / 1057.35 681.80 / 681.80 Output Total 2300 / 2300 10 Balance 1043.45 / 1045.35 -1618.20 / -1618.20 -10 / -10 Lab / Micro Data Attestation: I reviewed the patient's lab results. Lab results narrative: CMP was pending. ESRD with dialysis tu, th, sat 06/19/25 06:06 06/19/25 06:06 Labs: Laboratory Results - last 24 hr 06/19/25 11:23: POC Glucose 84 06/19/25 16:42: POC Glucose 68 L 06/19/25 22:04: POC Glucose 176 H 06/20/25 08:40: POC Glucose 125 H Micro: Microbiology 06/17/25 22:00 Wound - Heel Right Gram Stain - Final 06/17/25 22:00 Wound - Heel Right Wound Culture - Preliminary No growth-Final to follow 06/17/25 22:00 Wound - Heel Right Skin and Soft Tissue MRSA/MSSA (PCR - Final Radiography Diagnostic Testing: Radiology Impression Bone Scan Nuclear Medicine 06/18/25 11:37 IMPRESSION: Three-phase bone scan is negative for osteomyelitis in the region of the 1st metatarsal. Reading Location: [facility] 06/20/25 09:13 IMPRESSION: Streak artifact from aneurysm clip at the region of the anterior communicating artery limits evaluation of adjacent structures. Otherwise, no CT evidence of acute intracranial hemorrhage or infarct. Reading Location: [id number] Rhythm Strip Ectopy: PVC(s) Impressions & Recommendations Patient & Family Issues discussed with the patient and family: goals of care and role of POA versus pt being decisional Patient goal: pt stated that she wants to go to [facility]. Family goal: states that he will make decisions Ethical & Legal Ethical and legal: may need ethics committee if and patient are not in agreement about GOC. (When the pt is aao) Impressions Impressions: pt may not want all that is being done currently and may want comfort focused care but is not in agreement. Recommentation Palliative recommendations: outpatient palliative care Encouter Achieved as a result of this Palliative Care Encounter: [ [id number], [id number]] minutes were spent in total for this visit which consisted, primarily of counseling and education dealing with the complex and emotionally intense issues of symptom management and palliative care in the setting of serious and potentially life-threatening illness. Review of documentation, labs and radiological studies. ?Patient/family had the opportunity to ask questions Plan (1) Shock: (2) Non-pressure chronic ulcer of right heel and midfoot with fat layer exposed: (3) Hx of acute congestive heart failure: (4) Pain in right foot: (5) History of atrial fibrillation: (6) Other specified peripheral vascular diseases: (7) Goals of care, counseling/discussion: (8) Palliative care encounter: PLAN: Plan * pt will need continued GOC discussions to find out what her wishes want versus family. *recommend palliative outpatient consult *pallaitive care is signing off
[2025-06-20] MEDS: Heparin Injection (Vial) 5,000 UNIT/ML VIAL 5000 UNIT SC ×2 (11:36→21:38)
[2025-06-20] MEDS: Senna/Docusate Sodium 1 Tablet 2 TABLET PO (11:37)
[2025-06-20 12:20] LABS: Ammonia 78.5 umol/L (11-51)
[2025-06-20 12:35] LABS: Anion Gap 15 (5-15); BUN 39 mg/dL (4-19); BUN/Creat Ratio 10.7 RATIO (10-20); Calcium,Total 8.9 mg/dL (7.6-11.0); Carbon Dioxide 24.0 mmol/L (21.0-32.0); Chloride 96 mmol/L (98-108); Estimated Creatinine Clearance 11.91 ml/min (50-250); FOLATES,SERUM (FOLIC ACID) 13.10 ng/mL (4.60-34.80); Glucose 153 mg/dL (70-99); Potassium 5.0 mmol/L (3.3-5.1); Vitamin B12 1809 pg/mL (180-914)
--- NOTE | 2025-06-20 13:14 | PCM.PN.ID ---
Physical Exam Narrative More awake, at bedside, no fever Const no apparent distress Orientation / Consciousness: lethargic Resp normal air movement and clear to auscultation bilaterally Cardio regular rate and regular rhythm GI soft to palpation, non-tender and non-distended Skin no rashes or lesions noted ID ID: Route of nutrition/ use of supplements: [] Nutritional Intake: [] IV Site: [] Vaughn Catheter: [] Assessment & Plan Assessment/Plan (1) Pain in right foot: PLAN: Wbc better, no further hypothermia, bone scan neg for osteo, bcx neg so far. Recently started on HD. Will narrow to unasyn, plan on stopping soon to finish empiric course. Will follow (2) Shock:
--- NOTE | 2025-06-20 14:19 | PN.RENAL_ITS ---
Subjective Subjective no new events Objective Data Objective Data Vital Signs: Vital Signs Temp Pulse Resp BP Pulse Ox O2 Del Method O2 Flow Rate 98.8 F 88 16 127/52 H 98 Nasal Cannula 3 06/20/25 12:00 06/20/25 13:00 06/20/25 13:00 06/20/25 13:00 06/20/25 13:00 06/20/25 13:00 06/20/25 13:00 Oxygen Flow Rate (L/min) 3 Oxygen Delivery Method Nasal Cannula Weight: 72.7 kg Body Mass Index (BMI) 28.3 Intake & Output: Intake and Output for Last 24 Hours 06/18/25 06/19/25 06/20/25 23:59 23:59 23:59 Intake Total 1055.45 / 1057.35 681.80 / 681.80 Output Total 2300 / 2300 10 Balance 1043.45 / 1045.35 -1618.20 / -1618.20 -10 / -10 Lab / Micro Data 06/19/25 06:06 06/20/25 11:30 Labs: Laboratory Results - last 24 hr 06/19/25 16:42: POC Glucose 68 L 06/19/25 22:04: POC Glucose 176 H 06/20/25 08:40: POC Glucose 125 H 06/20/25 11:30: Sodium 135, Potassium 5.0, Chloride 96 L, Carbon Dioxide 24.0, Anion Gap 15, BUN 39 H, Creatinine 3.66 H, Estim Creat Clear Calc 11.91 L, Est GFR (MDRD) Non-Af 12 L, BUN/Creatinine Ratio 10.7, Glucose 153 H, Calcium 8.9, A mmonia 78.5 H, Vitamin B12 1809 H, Serum Folate 13.10, TSH 4.410 H 06/20/25 11:43: POC Glucose 162 H Micro: Microbiology 06/17/25 22:00 Wound - Heel Right Gram Stain - Final 06/17/25 22:00 Wound - Heel Right Wound Culture - Preliminary No growth-Final to follow 06/17/25 22:00 Wound - Heel Right Skin and Soft Tissue MRSA/MSSA (PCR - Final Radiography Diagnostic Testing: Radiology Impression Brain CT 06/20/25 09:13 IMPRESSION: Streak artifact from aneurysm clip at the region of the anterior communicating artery limits evaluation of adjacent structures. Otherwise, no CT evidence of acute intracranial hemorrhage or infarct. Reading Location: [facility] Rhythm Strip Ectopy: PVC(s) Physical Exam Narrative no obvious distress no pallor no icterus no JVD s1s2 no murmurs lungs clear abdomen soft no organomegaly no edema Assessment & Plan Assessment/Plan (1) MONIQUE (acute kidney injury): PLAN: Acute renal failure CKD stage IV History of congestive heart failure Continue dialysis as per schedule. Palliative care consult today to discuss ongoing goals of care
--- NOTE | 2025-06-20 15:12 | NEURO.CONS ---
Assessment and Plan: Neuro Assessment/Plan YAO SANCHES is a 79 F admitted with septic shock 2/2 osteomyelitis, being evaluated by Teleneurology for confusion and AMS. History with waxing and waning symptoms, concerning more for delirium. Exam concerning for expressive aphasia vs delirium. Plan: - MRI Brain when able and stable enough. If unable to obtain, repeat CTH in 24 hrs. - pending routine EEG - ammonia elevated - recommend aggressive bowel regiment - I personally attended this patient and spent a total time of 30minutes evaluating this patient including clinical assessment, review of chart, medical history imaging, and determining appropriate treatment and workup. HPI Consult Data Date of Consult: 06/20/25 HPI Narrative HPI Narrative: This entire female is being admitted for acute on chronic osteomyelitis of right heel 1. Shock possible differential septic shock/distributive shock, exact etiology unclear: X-ray of right foot on 06/23/2025 reviewed. It is reported as a lytic lesion involving the distal medial aspect of first metatarsal bone measuring 13.6 x 6 mm in transverse dimension. This lytic lesion appears a sclerotic margin with soft tissue swelling. Bone demineralization present. ESR and CRP are elevated. Mild leukocytosis. Patient is started on IV vancomycin and Zosyn. Patient on campus monitor at 1 time 89 systolic but not charted. Monitor BP. IV fluid Ringer lactate 1 L ordered as patient is dehydrated. MRI of right foot ordered. 06/18: Overnight the patient remained hypotensive, SBP 83. Indicators of sepsis of renal dysfunction or hypotension, SBP less than 90, MAP less than 65 lactic acidosis leukocytosis with left shift. Lactic acid 3.1. Required vasopressor and hence transferred to ICU. Repeat lactic acid came 1.9 normal range. Patient maintaining blood pressure on Levophed 5 mcg/min. Discussed with boat joiner and he thinks right heel does not have underlying point of infection/pus. The lytic/punched-out lesion in the first metatarsal is more from previous gout. He does not think patient has osteomyelitis but MRI foot is ordered. If MRI cannot be done then 3 phase bone scan. Bone scan is sensitive but not specific as MRI for osteomyelitis with leukocytosis with immature granulocytes 1.1%. [facility] [employer] consulted. 06/19: Patient going for bony scan. Earlier MRI was canceled because patient has wire in the brain. Still on low-dose vasopressin 06/20 bone scan was negative for osteomyelitis. Neurology is consulted for drowsiness. She is on HD, and had it yesterday. Neurologic History Per nurse she had word salad an dnot making a lot of sense. Was saying same things over and over but able to follow intermittent commands. She At home she is relatively independent and does well on her own. Unclear when last bowel movment was She got morphine when she initially presented due to pain but has not improved with HD. No noted agitation at night, hard to wake up. Exam Pt was sleeping on initial approach but awakens easily. able to follow one step commands intermittently Aware to building, begins to perseverate. Not aware to time. L facial droop EOMI horizontally b/l arms will go antigravity but drift to bed immediately bc of poor attention, R seems weaker than the L cross roller is 3/5 b/l withdrawal on noxious stim on th Eric and reaction, no reaction to noxious stim on the RLE , triple flexion on babinski testing on the RLE, withdrawal on babinski testing on the [facility] Medical History ESRD (end stage renal disease) Debility Elevated troponin I level Chronic kidney disease, stage 3b Anasarca MONIQUE (acute kidney injury) Ulcer of left lower extremity with fat layer exposed Anemia of chronic renal failure, stage 3 (moderate) Iron deficiency anemia due to chronic blood loss History of ESBL E. coli infection Type 2 diabetes mellitus Ulcer of left foot with fat layer exposed Ulcer of right foot with fat layer exposed Ulcer of right lower extremity with fat layer exposed Acute on chronic heart failure with preserved ejection fraction Hypokalemia Fatigue Vitamin D deficiency Rheumatoid arthritis Insomnia Mitral valve regurgitation Tachy-lionel syndrome Rheumatic fever GERD (gastroesophageal reflux disease) Chronic renal failure (CRF), stage 3b Cervical cancer Iron deficiency anemia Non-sustained ventricular tachycardia Pulmonary hypertension Rectal bleed Presence of Watchman left atrial appendage closure device Pacemaker Sinus node dysfunction Bradycardia History of cardioversion Skin tear of left forearm without complication Skin cancer Cardiac arrhythmia CHF exacerbation Brain aneurysm Anxiety Family history of brain aneurysm PAD (peripheral artery disease) PAF (paroxysmal atrial fibrillation) Obesity (BMI 30.0-34.9) Laceration of right middle finger Heart disease Diabetes History of cancer Fever HTN (hypertension) Diabetes mellitus type 2 in obese Chest pain, musculoskeletal HLD (hyperlipidemia) URI (upper respiratory infection) Bronchospasm with bronchitis, acute Home Medications ?Medication ?Instructions ?Recorded ?Last Taken ?Type atorvastatin 40 mg tablet 40 mg PO DAILY daily 01/07/25 06/05/25 History metoprolol succinate 50 mg 50 mg PO BID blood pressure 02/05/25 06/06/25 History tablet,extended release 24 hr vitamin B complex 1 tab PO QDAY supplement 02/05/25 06/06/25 History ascorbic acid (vitamin C) 500 mg 500 mg PO QDAY supplement 02/14/25 06/05/25 History tablet aspirin 81 mg tablet,delayed 81 mg PO QDAY heart health 02/14/25 06/06/25 History release (Adult Aspirin Regimen) pantoprazole 40 mg tablet,delayed 40 mg PO QDAY stomach 02/14/25 06/06/25 History release polysaccharide iron complex 150 mg 150 mg PO QDAY low iron 02/14/25 06/05/25 History iron capsule (Ferrex) levothyroxine 50 mcg tablet 50 mcg PO DAILY thyroid 03/01/25 06/06/25 History Allergy/AdvReac Type Severity Reaction Status Date / Time propofol AdvReac Mild Low blood Verified 06/17/25 15:48 pressure Family History Father Heart disease High cholesterol Myocardial infarction, Onset Age: 58 Mother Heart disease Surgical History Hx of abdominal surgery History of mastoidectomy History of cardiac radiofrequency ablation history skin cancer surgery history bilateral ear surgeries History of hysterectomy H/O aortic valve replacement Social History household members: spouse number of children: 1 current occupational status: retired 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 Smoking Status: Former smoker Tobacco: How many years used: 1 alcohol intake: current alcohol intake frequency: holidays/special occasions only Alcohol type: wine substance use type: does not use Vital Signs Vital Signs Vital Signs: 06/19/25 15:15 06/19/25 15:30 06/19/25 15:45 Temperature Temperature Source Pulse Rate 95 87 96 Pulse Strength Respiratory Rate Respiratory Effort Respiratory Depth Respiratory Pattern Blood Pressure 118/50 L 110/48 L 116/50 L Blood Pressure Mean 72 68 72 Blood Pressure Source Monitor Monitor Blood Pressure Position Semi-Fowlers Semi-Fowlers Semi-Fowlers Blood Pressure Location Left Arm Left Arm Right Arm Pulse Ox Oxygen Delivery Method Oxygen Flow Rate (L/min) 06/19/25 16:00 06/19/25 16:00 06/19/25 16:09 Temperature 97.2 F L 97.2 F L Temperature Source Core Temporal Pulse Rate 97 99 Pulse Strength Respiratory Rate 20 H 16 Respiratory Effort Normal Non-Labored Normal Non-Labored Respiratory Depth Normal Normal Respiratory Pattern Normal Normal Blood Pressure 117/62 117/62 Blood Pressure Mean 80 80 Blood Pressure Source Monitor Monitor Blood Pressure Position Semi-Fowlers Semi-Fowlers Blood Pressure Location Left Arm Right Arm Pulse Ox 100 100 Oxygen Delivery Method Room Air Nasal Cannula Room Air Oxygen Flow Rate (L/min) 3 06/19/25 16:30 06/19/25 16:45 06/19/25 17:00 Temperature 97.2 F L Temperature Source Core Pulse Rate 95 103 H 97 Pulse Strength Respiratory Rate 18 16 Respiratory Effort Respiratory Depth Respiratory Pattern Blood Pressure 122/52 H 111/80 103/58 L Blood Pressure Mean 75 90 73 Blood Pressure Source Monitor Monitor Monitor Blood Pressure Position Semi-Fowlers Semi-Fowlers Semi-Fowlers Blood Pressure Location Left Arm Left Arm Left Arm Pulse Ox 100 93 Oxygen Delivery Method Nasal Cannula Nasal Cannula Oxygen Flow Rate (L/min) 3 3 06/19/25 17:15 06/19/25 17:30 06/19/25 18:00 Temperature Temperature Source Pulse Rate 92 86 82 Pulse Strength Respiratory Rate 12 Respiratory Effort Respiratory Depth Respiratory Pattern Blood Pressure 103/54 L 110/54 L 96/40 L Blood Pressure Mean 70 72 58 Blood Pressure Source Monitor Monitor Monitor Blood Pressure Position Semi-Fowlers Semi-Fowlers Semi-Fowlers Blood Pressure Location Left Arm Left Arm Left Arm Pulse Ox 94 Oxygen Delivery Method Nasal Cannula Oxygen Flow Rate (L/min) 3 06/19/25 19:00 06/19/25 20:00 06/19/25 20:00 Temperature 97.6 F L 97.9 F Temperature Source Core Core Pulse Rate 86 88 Pulse Strength Respiratory Rate 12 15 Respiratory Effort Normal Non-Labored Respiratory Depth Normal Respiratory Pattern Normal Blood Pressure 108/36 L 102/35 L Blood Pressure Mean 60 57 Blood Pressure Source Monitor Monitor Blood Pressure Position Supine Supine Blood Pressure Location Left Arm Right Arm Pulse Ox 100 100 Oxygen Delivery Method Nasal Cannula Room Air Nasal Cannula Oxygen Flow Rate (L/min) 3 06/19/25 20:00 06/19/25 20:00 06/19/25 21:00 Temperature 97.9 F 98.2 F Temperature Source Core Core Pulse Rate 86 88 88 Pulse Strength Respiratory Rate 15 13 Respiratory Effort Respiratory Depth Respiratory Pattern Blood Pressure 102/35 L 101/41 L Blood Pressure Mean 57 61 Blood Pressure Source Monitor Monitor Blood Pressure Position Supine Supine Blood Pressure Location Left Arm Left Arm Pulse Ox 100 100 Oxygen Delivery Method Nasal Cannula Nasal Cannula Oxygen Flow Rate (L/min) 3 3 06/19/25 22:00 06/19/25 23:00 06/20/25 00:00 Temperature 98.3 F 98.4 F Temperature Source Core Core Pulse Rate 92 93 Pulse Strength Respiratory Rate 20 H 16 Respiratory Effort Normal Non-Labored Respiratory Depth Normal Respiratory Pattern Normal Blood Pressure 117/46 L 103/39 L Blood Pressure Mean 69 60 Blood Pressure Source Monitor Monitor Blood Pressure Position Supine Supine Blood Pressure Location Left Arm Left Arm Pulse Ox 98 99 Oxygen Delivery Method Nasal Cannula Nasal Cannula Nasal Cannula Oxygen Flow Rate (L/min) 3 3 06/20/25 00:00 06/20/25 00:00 06/20/25 01:00 Temperature 98.4 F 98.4 F Temperature Source Core Core Pulse Rate 91 91 94 Pulse Strength Respiratory Rate 14 12 Respiratory Effort Respiratory Depth Respiratory Pattern Blood Pressure 104/45 L 117/52 L Blood Pressure Mean 64 73 Blood Pressure Source Monitor Monitor Blood Pressure Position Supine Supine Blood Pressure Location Left Arm Left Arm Pulse Ox 99 99 Oxygen Delivery Method Nasal Cannula Nasal Cannula Oxygen Flow Rate (L/min) 3 3 06/20/25 02:00 06/20/25 03:00 06/20/25 04:00 Temperature 98.6 F Temperature Source Core Pulse Rate 94 94 Pulse Strength Respiratory Rate 14 12 Respiratory Effort Normal Non-Labored Respiratory Depth Normal Respiratory Pattern Normal Blood Pressure 113/44 L 96/52 L Blood Pressure Mean 67 66 Blood Pressure Source Monitor Monitor Blood Pressure Position Supine Supine Blood Pressure Location Left Arm Left Arm Pulse Ox 99 98 Oxygen Delivery Method Nasal Cannula Nasal Cannula Nasal Cannula Oxygen Flow Rate (L/min) 3 3 06/20/25 04:00 06/20/25 04:00 06/20/25 05:00 Temperature 99.0 F Temperature Source Core Pulse Rate 97 100 97 Pulse Strength Respiratory Rate 14 14 Respiratory Effort Respiratory Depth Respiratory Pattern Blood Pressure 114/47 L 108/44 L Blood Pressure Mean 69 65 Blood Pressure Source Monitor Monitor Blood Pressure Position Supine Supine Blood Pressure Location Left Arm Left Arm Pulse Ox 99 98 Oxygen Delivery Method Nasal Cannula Nasal Cannula Oxygen Flow Rate (L/min) 3 3 06/20/25 06:00 06/20/25 08:00 06/20/25 08:00 Temperature 99.1 F Temperature Source Core Pulse Rate 98 88 Pulse Strength Respiratory Rate 14 18 Respiratory Effort Normal Non-Labored Respiratory Depth Normal Respiratory Pattern Normal Blood Pressure 111/51 L 87/48 L Blood Pressure Mean 71 61 Blood Pressure Source Monitor Monitor Blood Pressure Position Supine Semi-Fowlers Blood Pressure Location Left Arm Left Arm Pulse Ox 98 98 Oxygen Delivery Method Nasal Cannula Nasal Cannula Nasal Cannula Oxygen Flow Rate (L/min) 3 3 3 06/20/25 08:00 06/20/25 08:04 06/20/25 09:00 Temperature 99.0 F Temperature Source Core Pulse Rate 99 103 H Pulse Strength Respiratory Rate 12 Respiratory Effort Respiratory Depth Respiratory Pattern Blood Pressure 125/54 H Blood Pressure Mean 77 Blood Pressure Source Monitor Blood Pressure Position Semi-Fowlers Blood Pressure Location Left Arm Pulse Ox 98 97 Oxygen Delivery Method Nasal Cannula Nasal Cannula Oxygen Flow Rate (L/min) 3 3 06/20/25 10:00 06/20/25 10:00 06/20/25 11:00 Temperature 98.8 F Temperature Source Core Pulse Rate 99 94 Pulse Strength Doppler Respiratory Rate 20 H 16 Respiratory Effort Respiratory Depth Respiratory Pattern Blood Pressure 120/105 H 113/50 L Blood Pressure Mean 110 71 Blood Pressure Source Monitor Monitor Blood Pressure Position Semi-Fowlers Semi-Fowlers Blood Pressure Location Left Arm Left Arm Pulse Ox 98 99 Oxygen Delivery Method Nasal Cannula Nasal Cannula Oxygen Flow Rate (L/min) 3 3 06/20/25 12:00 06/20/25 12:00 06/20/25 12:00 Temperature 98.8 F Temperature Source Core Pulse Rate 99 102 H Pulse Strength Respiratory Rate 15 Respiratory Effort Normal Non-Labored Respiratory Depth Normal Respiratory Pattern Normal Blood Pressure 128/96 H Blood Pressure Mean 106 Blood Pressure Source Monitor Blood Pressure Position Semi-Fowlers Blood Pressure Location Left Arm Pulse Ox 98 Oxygen Delivery Method Nasal Cannula Nasal Cannula Oxygen Flow Rate (L/min) 3 3 06/20/25 13:00 Temperature Temperature Source Pulse Rate 88 Pulse Strength Respiratory Rate 16 Respiratory Effort Respiratory Depth Respiratory Pattern Blood Pressure 127/52 H Blood Pressure Mean 77 Blood Pressure Source Monitor Blood Pressure Position Semi-Fowlers Blood Pressure Location Left Arm Pulse Ox 98 Oxygen Delivery Method Nasal Cannula Oxygen Flow Rate (L/min) 3 Weight Weight: 72.7 kg Body Mass Index (BMI) 28.3 EEG Results Procedure Details EEG Procedure Details: YAO SANCHES is a 79 year old F with a past medical history of , who presents for evaluation of Electroencephalogram on DATE at TIME Lab / Micro Data 06/19/25 06:06 06/20/25 11:30 Labs: Laboratory Results - last 24 hr 06/19/25 16:42: POC Glucose 68 L 06/19/25 22:04: POC Glucose 176 H 06/20/25 08:40: POC Glucose 125 H 06/20/25 11:30: Sodium 135, Potassium 5.0, Chloride 96 L, Carbon Dioxide 24.0, Anion Gap 15, BUN 39 H, Creatinine 3.66 H, Estim Creat Clear Calc 11.91 L, Est GFR (MDRD) Non-Af 12 L, BUN/Creatinine Ratio 10.7, Glucose 153 H, Calcium 8.9, Ammonia 78.5 H, Vitamin B12 1809 H, Serum Folate 13.10, TSH 4.410 H 06/20/25 11:43: POC Glucose 162 H Rhythm Strip Ectopy: PVC(s) Imaging Radiology Impression Brain CT 06/20/25 09:13 IMPRESSION: Streak artifact from aneurysm clip at the region of the anterior communicating artery limits evaluation of adjacent structures. Otherwise, no CT evidence of acute intracranial hemorrhage or infarct. Reading Location: [id number] Active Medications Active Medications Active Medications: Current Medications Generic Name Dose Route Start Last Admin Trade Name Freq PRN Reason Stop Dose Admin Acetaminophen 1,000 mg 06/17/25 22:00 06/20/25 05:30 Acetaminophen 500 Mg Tablet PO Not Given Q8 TOMAS Ascorbic Acid 500 mg 06/18/25 08:00 06/20/25 08:44 Ascorbic Acid 500 Mg Tablet PO 500 mg BREAKFAST TOMAS Administration Aspirin 81 mg 12/15/25 08:00 06/20/25 08:45 Aspirin E.C. 81 Mg Tablet PO 81 mg BREAKFAST TOMAS Administration Atorvastatin Calcium 40 mg 06/18/25 10:00 06/20/25 11:36 Atorvastatin Calcium 40 Mg Tablet PO 40 mg DAILY TOMAS Administration Glucagon 1 mg 06/17/25 18:03 Glucagon 1 Mg/Ml Syringe IM X1 PRN Hypoglycemia Protocol Heparin Sodium (Porcine) 5,000 unit 06/19/25 22:00 06/20/25 11:36 Heparin Injection (Vial) 5,000 Unit/Ml Vial SC 5,000 unit Q12 TOMAS Administration Heparin Sodium (Porcine) 1,000 - 3,000 units 06/20/25 07:48 Heparin 10,000 Units/10 Ml Vial IV 06/20/25 19:48 X1 PRN HD catheter closing Dextrose 250 mls @ 0 mls/hr 06/17/25 18:03 Dextrose 10%-Water IV .Q0M PRN HYPOGLYCEMIA Protocol As Directed Sodium Chloride 250 mls @ 15 mls/hr 06/17/25 18:40 06/18/25 16:28 IV Infused .[id number] PRN Infusion Saline Flush Sodium Chloride 250 mls @ 15 mls/hr 06/17/25 18:40 IV .[id number] PRN Additional IVPB Infusion Sodium Chloride 250 mls @ 15 mls/hr 06/17/25 18:46 IV .[id number] PRN Saline Flush Sodium Chloride 250 mls @ 15 mls/hr 06/17/25 18:46 IV .[id number] PRN Additional IVPB Infusion Norepinephrine Bitartrate 8 mg 250 mls @ 9.375 mls/hr 06/17/25 20:17 06/20/25 02:58 / Sodium Chloride CONT INF Not Given .[id number] TOMAS Protocol 5 MCG/MIN Vancomycin IV-PHARMACY TO DOSE 500 mls @ 250 mls/hr 06/18/25 02:49 1 each/ Sodium Chloride IV DAILY PRN Rx to Dose Protocol Ampicillin Sodium/Sulbactam 100 mls @ 150 mls/hr 06/19/25 14:00 06/19/25 17:34 Sodium 3 gm/ Sodium Chloride IV Infused Q24H TOMAS Infusion Insulin Human Lispro 0 unit 06/17/25 22:00 06/20/25 11:53 Insulin Lispro 100 Unit/Ml Insuln.Pen SC 2 u ACHS TOMAS Administration Protocol Levothyroxine Sodium 50 mcg 06/18/25 06:00 06/20/25 05:29 Levothyroxine 50 Mcg Tablet PO 50 mcg DAILY@0600 TOMAS Administration Melatonin 3 mg 06/17/25 17:28 Melatonin 3 Mg Tablet PO QHS PRN PRN INSOMNIA Midodrine 10 mg 06/18/25 12:00 06/20/25 11:37 Midodrine Hcl 5 Mg Tablet PO 10 mg TIDCM TOMSA Administration Multivitamins 1 cap 06/18/25 08:00 06/20/25 08:44 Vitamin B Comp W-C Capsule PO 1 cap DAILYCM TOMAS Administration Oxycodone HCl 2.5 - 5 mg 06/17/25 17:28 Oxycodone 5 Mg Tablet PO Q4H PRN PRN Pain Score 4-10 Pantoprazole Sodium 40 mg 06/20/25 10:00 06/20/25 11:37 Pantoprazole Sodium 40 Mg Tablet PO 40 mg DAILY TOMAS Administration Polysaccharide Iron Complex 150 mg 06/18/25 10:00 06/20/25 11:36 Iron Polysaccharide Complex 150 Mg Capsule PO 150 mg DAILY TOMAS Administration Senna/Docusate Sodium 2 tablet 06/17/25 22:00 06/20/25 11:37 Senna/Docusate Sodium 1 Tablet PO 2 tablet BID TOMAS Administration Sodium Chloride 10 - 40 ml 06/17/25 18:40 06/19/25 05:59 0.9% Saline Lock 10 Ml Syringe IV 10 ml UD PRN Administration SALINE FLUSH Sodium Chloride 10 - 40 ml 06/17/25 18:46 0.9% Saline Lock 10 Ml Syringe IV UD PRN SALINE FLUSH Sodium Chloride 200 ml 06/20/25 07:48 0.9% Normal Saline 1,000 Ml Iv.Soln. IV 06/20/25 19:48 X1 PRN to maintain SBP >90mmHg during Dialysis Vancomycin Protocol 1 lab 06/21/25 05:00 Vancomycin Trough/Random Due MC 06/21/25 07:00 DAILY TOMAS
[2025-06-20] MEDS: Ampicillin/Sulbactam 3 GM in 0.9% Normal Saline (100mL MB+) 100 ML IV (15:53)
[2025-06-21] VITALS (23 sets, daily range): BP systolic 108–138; BP diastolic 47–95; PULSE 80–116; RESP 13–25; TEMP 36.6–37.1; O2SAT 94–100; BMI 27.8; BMI 27.7
[2025-06-21] MEDS: Vancomycin Trough/Random Due 1 LAB MC (04:58)
[2025-06-21 05:28] LABS: Vancomycin, Random Level 19.7 ug/mL (0.0-15.0)
[2025-06-21 05:30] LABS: Anion Gap 15 (5-15); BUN 48 mg/dL (4-19); BUN/Creat Ratio 11.9 RATIO (10-20); Calcium,Total 8.9 mg/dL (7.6-11.0); Carbon Dioxide 23.2 mmol/L (21.0-32.0); Chloride 95 mmol/L (98-108); Estimated Creatinine Clearance 10.87 ml/min (50-250); Glucose 118 mg/dL (70-99); Potassium 5.4 mmol/L (3.3-5.1)
--- NOTE | 2025-06-21 05:45 | PCM.RX.CS ---
Consult Antibiotic Management Pharmacy has been consulted to manage selected antibiotic: Vancomycin Type of Intervention Type of Consult: Follow-up Suspected Infection Suspected Infection: Sepsis and Osteomyelitis Labs Labs: Sodium 133 mmol/L (133-145) 06/21/25 04:53 Potassium 5.4 mmol/L (3.3-5.1) H 06/21/25 04:53 Chloride 95 mmol/L (98-108) L 06/21/25 04:53 Carbon Dioxide 23.2 mmol/L (21.0-32.0) 06/21/25 04:53 Anion Gap 15 (5-15) 06/21/25 04:53 BUN 48 mg/dL (4-19) H 06/21/25 04:53 Creatinine 4.01 mg/dL (0.70-1.20) H 06/21/25 04:53 Est GFR (MDRD) Non-Af 11 (>60) L 06/21/25 04:53 BUN/Creatinine Ratio 11.9 RATIO (10-20) 06/21/25 04:53 Glucose 118 mg/dL (70-99) H 06/21/25 04:53 Random Vancomycin 19.7 ug/mL (0.0-15.0) H 06/21/25 04:53 Microbiology Microbiology: Microbiology 06/17/25 22:00 Wound - Heel Right Gram Stain - Final 06/17/25 22:00 Wound - Heel Right Wound Culture - Preliminary No growth-Final to follow 06/17/25 22:00 Wound - Heel Right Skin and Soft Tissue MRSA/MSSA (PCR - Final Dosing Weight Weight used for dosin.2 kg Estimated Creatinine Clearance Estimated Creatinine Clearance: 10.9 Goal Trough Goal Trough: 15-20 mcg/mL Pharmacy Plan for Drug Dosing Pharmacy Plan for Drug Dosing: Random vancomycin was drawn for a pre-dialysis level. The result was 19.7 mg/L, which calls for a 500mg dose to be given today after the scheduled dialysis session. Another random pre-HD vanco level will be drawn Wednesday06/23/25. Pharmacy Service will continue to monitor and adjust dosing as required. Follow-Up Labs Follow-Up Labs: Trough: Vancomycin (random) Date/Time Labs Ordered Labs to be done on [date and time ordered]: 06/23/25 @0600 (random level on dialysis day)
--- NOTE | 2025-06-21 06:56 | PCM.PN.SRG ---
Subjective Subjective I saw patient this morning. She was sleeping in bed, she did not wake up when I called her name/tapped her shoulder; she is very hard of hearing and has had AMS which is being worked up by primary service/neuro. R foot wound has been stable in appearance, nursing has noted she seems to have less tenderness in her R ankle and not complaining of pain as much in the R foot. Objective Data Objective Data Vital Signs: Vital Signs Temp Pulse Resp BP Pulse Ox O2 Del Method O2 Flow Rate 98.7 F 104 H 13 119/51 L 96 Nasal Cannula 1 06/21/25 03:00 06/21/25 06:00 06/21/25 06:00 06/21/25 06:00 06/21/25 06:55 06/21/25 06:55 06/21/25 06:55 Oxygen Flow Rate (L/min) 1 Oxygen Delivery Method Nasal Cannula Weight: 156 lb 15.506 oz Body Mass Index (BMI) 27.8 Intake & Output: Intake and Output for Last 24 Hours 06/19/25 06/20/25 06/21/25 23:59 23:59 23:59 Intake Total 681.80 / 681.80 100 / 100 Output Total 2300 / 2300 135 / 135 Balance -1618.20 / -1618.20 -35 / -35 Lab / Micro Data 06/19/25 06:06 06/21/25 04:53 Labs: Laboratory Results - last 24 hr 06/20/25 08:40: POC Glucose 125 H 06/20/25 11:30: Sodium 135, Potassium 5.0, Chloride 96 L, Carbon Dioxide 24.0, Anion Gap 15, BUN 39 H, Creatinine 3.66 H, Estim Creat Clear Calc 11.91 L, Est GFR (MDRD) Non-Af 12 L, BUN/Creatinine Ratio 10.7, Glucose 153 H, Calcium 8.9, Ammonia 78.5 H, Vitamin B12 1809 H, Serum Folate 13.10, TSH 4.410 H 06/20/25 11:43: POC Glucose 162 H 06/20/25 18:01: POC Glucose 163 H 06/20/25 21:33: POC Glucose 133 H 06/21/25 04:53: Sodium 133, Potassium 5.4 H, Chloride 95 L, Carbon Dioxide 23.2, Anion Gap 15, BUN 48 H, Creatinine 4.01 H, Estim Creat Clear Calc 10.87 L, Est GFR (MDRD) Non-Af 11 L, BUN/Creatinine Ratio 11.9, Glucose 118 H, Calcium 8.9, Random Vancomycin 19.7 H Micro: Microbiology 06/17/25 22:00 Wound - Heel Right Gram Stain - Final 06/17/25 22:00 Wound - Heel Right Wound Culture - Preliminary No growth-Final to follow 06/17/25 22:00 Wound - Heel Right Skin and Soft Tissue MRSA/MSSA (PCR - Final Radiography Diagnostic Testing: Radiology Impression Brain CT 06/20/25 09:13 IMPRESSION: Streak artifact from aneurysm clip at the region of the anterior communicating artery limits evaluation of adjacent structures. Otherwise, no CT evidence of acute intracranial hemorrhage or infarct. Reading Location: [facility] Rhythm Strip Ectopy: PVC(s) Physical Exam Const Constitutional Narrative: not alert, sleeping General Appearance: cooperative HEENT normocephalic Eyes General Eye: normal appearance of both eyes Neck Neck Narrative: R IJ tunneled catheter in place Resp normal respiratory effort Effort and Inspection: Negative for labored, grunting, stridor or audible wheezes Cardio regular rhythm Rate: tachycardic Extremity Extremity Narrative: R DP and PT pulses with stable, strong monophasic doppler signal; R foot appropriately warm, no significant pallor, coolness. Superficial R heel ulceration with viable wound edges, no eschar/gangrenous changes. Neuro Sensorium / Orientation: lethargic Assessment & Plan Assessment/Plan (1) PAD (peripheral artery disease): PLAN: Plan Arterial study was consistent with moderate PAD. Vascular exam today is stable. R heel wound is stable and R ankle pain seems to be improving. Plan remains for outpatient follow-up. Charges/Coding Visit Charges Inpatient E&M: 08818 Subs Hosp L1
--- NOTE | 2025-06-21 08:16 | PCM.PN.HOSP ---
Reason for Visit Chief Complaint: Right foot wound noticed for 1 week Objective Data Objective Data Vital Signs: Vital Signs Temp Pulse Resp BP Pulse Ox O2 Del Method O2 Flow Rate 98.7 F 104 H 13 119/51 L 96 Nasal Cannula 1 06/21/25 03:00 06/21/25 06:00 06/21/25 06:00 06/21/25 06:00 06/21/25 06:55 06/21/25 06:55 06/21/25 06:55 Oxygen Flow Rate (L/min) 1 Oxygen Delivery Method Nasal Cannula Weight: 156 lb 15.506 oz Body Mass Index (BMI) 27.8 Intake & Output: Intake and Output for Last 24 Hours 06/19/25 06/20/25 06/21/25 23:59 23:59 23:59 Intake Total 681.80 / 681.80 100 / 100 Output Total 2300 / 2300 135 / 135 Balance -1618.20 / -1618.20 -35 / -35 Lab / Micro Data 06/19/25 06:06 06/21/25 04:53 Labs: Laboratory Results - last 24 hr 06/20/25 08:40: POC Glucose 125 H 06/20/25 11:30: Sodium 135, Potassium 5.0, Chloride 96 L, Carbon Dioxide 24.0, Anion Gap 15, BUN 39 H, Creatinine 3.66 H, Estim Creat Clear Calc 11.91 L, Est GFR (MDRD) Non-Af 12 L, BUN/Creatinine Ratio 10.7, Glucose 153 H, Calcium 8.9, Ammonia 78.5 H, Vitamin B12 1809 H, Serum Folate 13.10, TSH 4.410 H 06/20/25 11:43: POC Glucose 162 H 06/20/25 18:01: POC Glucose 163 H 06/20/25 21:33: POC Glucose 133 H 06/21/25 04:53: Sodium 133, Potassium 5.4 H, Chloride 95 L, Carbon Dioxide 23.2, Anion Gap 15, BUN 48 H, Creatinine 4.01 H, Estim Creat Clear Calc 10.87 L, Est GFR (MDRD) Non-Af 11 L, BUN/Creatinine Ratio 11.9, Glucose 118 H, Calcium 8.9, Random Vancomycin 19.7 H Micro: Microbiology 06/17/25 22:00 Wound - Heel Right Gram Stain - Final 06/17/25 22:00 Wound - Heel Right Wound Culture - Preliminary No growth-Final to follow 06/17/25 22:00 Wound - Heel Right Skin and Soft Tissue MRSA/MSSA (PCR - Final Radiography Diagnostic Testing: Radiology Impression Brain CT 06/20/25 09:13 IMPRESSION: Streak artifact from aneurysm clip at the region of the anterior communicating artery limits evaluation of adjacent structures. Otherwise, no CT evidence of acute intracranial hemorrhage or infarct. Reading Location: [facility] Rhythm Strip Ectopy: PVC(s) Physical Exam Narrative Seen in exam Patient is aphasic confused. She tells me full name today but only Berta. Her confusion and severity of encephalopathy varies. Sometimes echolalia Complain that right foot pain about 7-8/10 intensity increased on movement. Off pressors since 06/19. On midodrine afebrile. Physical exam: General: Confused today. Disoriented. Awake. fatigue Cooperative HEENT:Uses hearing aid. Atraumatic, PERRLA, EOMI, Normocephalic. Oral: Oral mucosa dry. No Gingival or Mucosal Lesions/ Ulcerations Neck: Supple, No JVD, Negative Carotid Bruits Chest wall/Lungs: Air entry diminished in bilateral lung bases. No crepitation/rhonchi Cardiovascular: Regular paced rhythm, Normal S1,S2, No M/G/R. Decreased pulse in right popliteal and dorsalis pedis Abdomen: Bowel Sounds Present, Soft, Non Tender, Non-Distended : No dysuria. On HD, TTS. No renal angle tenderness. No suprapubic tenderness. Extremities: Bilateral lower leg/ankle pitting edema, capillary refill delayed Skin: Right heel ulcer, nonblanching skin, pale and thickened skin of right lower leg ventral aspect. Ulcer in the upper mid thoracic spine superficial Musculoskeletal: Tenderness to the right foot/heel. No Tenderness to Palpation of Joints or Extremities Neurological: Cranial nerves II-XII grossly intact, DTR 2+/4. No acute focal neurological deficit. Psych/Mental Status: Flat affect Assessment & Plan Assessment/Plan (1) Acute osteomyelitis of foot: PLAN: Plan This entire female is being admitted for acute on chronic osteomyelitis of right heel 1. Shock possible differential septic shock/distributive shock, exact etiology unclear: X-ray of right foot on 06/23/2025 reviewed. It is reported as a lytic lesion involving the distal medial aspect of first metatarsal bone measuring 13.6 x 6 mm in transverse dimension. This lytic lesion appears a sclerotic margin with soft tissue swelling. Bone demineralization present. ESR and CRP are elevated. Mild leukocytosis. Patient is started on IV vancomycin and Zosyn. Patient on monitoring and evaluation advisor at 1 time 89 systolic but not charted. Monitor BP. IV fluid Ringer lactate 1 L ordered as patient is dehydrated. MRI of right foot ordered. 06/18: Overnight the patient remained hypotensive, SBP 83. Indicators of sepsis of renal dysfunction or hypotension, SBP less than 90, MAP less than 65 lactic acidosis leukocytosis with left shift. Lactic acid 3.1. Required vasopressor and hence transferred to ICU. Repeat lactic acid came 1.9 normal range. Patient maintaining blood pressure on Levophed 5 mcg/min. Discussed with direct care specialist and he thinks right heel does not have underlying point of infection/pus. The lytic/punched-out lesion in the first metatarsal is more from previous gout. He does not think patient has osteomyelitis but MRI foot is ordered. If MRI cannot be done then 3 phase bone scan. Bone scan is sensitive but not specific as MRI for osteomyelitis with leukocytosis with immature granulocytes 1.1%. Shipping And Receiving Specialist consulted. 06/19: Patient going for bony scan. Earlier MRI was canceled because patient has wire in the brain. Still on low-dose vasopressin 06/20 bone scan was negative for osteomyelitis. 06/21: Patient maintaining blood pressure. On midodrine Acute encephalopathy, exact etiology unclear: Neurologist recommended MRI brain but had intra-arterial coiling. 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 Pending ammonia elevated. B12 high. TSH 4.4 borderline elevation. Lactulose started. Repeat CT head after 24 hours 2. Chronic HFpEF with right ventricular failure and moderate pulmonary hypertension: Chest x-ray done which shows cardiomegaly, pacemaker. Not suggestive of fluid overload but was admitted in first week of June for anasarca. Patient on metoprolol succinate, baby aspirin and atorvastatin continued. 2D echo in June 2025 shows EF 50% with normal ventricular size but moderately dilated RV, PASP 62 mmHg 06/19: Hold metoprolol 06/20: On 3 L of oxygen. BP 111/51. Sinus rhythm 06/21: Paced rhythm. Heart rate 96/min. 3. Chronic A-fib status post Watchman device: Patient not on anticoagulation due to history of GI bleed and Watchman device. Continue metoprolol. 4. Suspected PAD: Lower extremity arterial study ordered. Skin of right lower leg is thickened, pale and nonblanchable. Decreased pulsation of right posterior tibial and dorsalis. 06/21: Had vascular surgery consult. No signs of acute ischemia or critical ischemia or indication for urgent vascular intervention. Moderate PAD with diabetes. Medical management on aspirin and statin 5. DM type II: Her denies DM type II but glucose 129 mg/dL. Last A1c 7.8% suggestive of DM type II. Accu-Chek before meals and at bedtime with Humalog sliding scale coverage and hypoglycemia protocol. 6. Chronic chest flail: No acute issues 7. ESRD on hemodialysis: Wednesday and Wednesday. Field Operations Manager was consulted on admission. Patient has Vaughn catheter. Usually she makes some urine but no urine in Vaughn catheter since last night 06/19: 2 days of dialysis day 06/20: Patient to had dialysis yesterday. Generalized swelling of upper thigh, lower abdominal wall subcutaneous tissue. 06/21: Mild hyperkalemia, potassium hemolyzed. Due for dialysis today. Repeat BMP after 1 to 2 hours of completion of dialysis. Discussed with the dialysis nurse 8. Anemia of chronic disease most likely due to ESRD: Patient hemoglobin fluctuates between 9 to 10 g. On PPI. Monitor CBC. On iron supplement 06/20 hemoglobin 9.6. DVT prophylaxis on heparin 5000 subcutaneous twice daily Living will/advanced directive/end of life care: Patient does have living will or advanced directive. Patient's present in the ED and is power of kettle chipper for health. After discussion of benefits/risks procedures involved with full code, DNR CC arrest and DNR CC, the patient and her opted for DNR CC arrest with no intubation Patient doesn't want artificial life support including intubation, tube feed, ventilator and/chest compression, and DC shock if needed but OK with central venous catheter and, vasopressor Total time spent in [id number] encounter in discussion of advanced directive 17 minutes. Charges/Coding Visit Charges Inpatient E&M: [id number] [facility] Hosp L3
--- NOTE | 2025-06-21 08:22 | ST.MBS ---
Modified Barium Swallow Patient Information Study Date: 06/21/25 Study Time: 08:30 Direct Billable Minutes: 120 Total Minutes procedure & reportin Diagnosis: Shock R57.9; GERD K21.9 Referring Physician: Imtiaz Melissa Reason for Referral: Assess swallow function, assess risk for aspiration, and determine recommendations for least restrictive diet textures and compensatory strategies to improve swallowing safety. Medical History: The patient w/ extensive PMH below came to ED 06/17/2025 with right foot swelling, ulcer noticed about 1 week. She was admitted for management of acute osteomyelitis of foot, shock, hypotension, chronic HFpEF, and chronic A-fib amongst other comorbidities, including ESRD on dialysis. ST consulted 06/20/2025 d/t concern for difficulty swallowing. BSE 06/20/2025 revealed weak coughing, gurgling, face turning red w/ sips of thin liquids. FAITH HEALER recommended the patient be NPO w/ plan for this MBSS to further assess swallow function and aspiration risk prior to diet advancement. Medical History MONIQUE (acute kidney injury) Ulcer of left lower extremity with fat layer exposed Anemia of chronic renal failure, stage 3 (moderate) Iron deficiency anemia due to chronic blood loss History of ESBL E. coli infection Type 2 diabetes mellitus Ulcer of left foot with fat layer exposed Ulcer of right foot with fat layer exposed Ulcer of right lower extremity with fat layer exposed Acute on chronic heart failure with preserved ejection fraction Hypokalemia Fatigue Vitamin D deficiency Rheumatoid arthritis Insomnia Mitral valve regurgitation Tachy-lionel syndrome Rheumatic fever GERD (gastroesophageal reflux disease) Chronic renal failure (CRF), stage 3b Cervical cancer Iron deficiency anemia Non-sustained ventricular tachycardia Pulmonary hypertension Rectal bleed Presence of Watchman left atrial appendage closure device Pacemaker Sinus node dysfunction Bradycardia History of cardioversion Skin tear of left forearm without complication Skin cancer Cardiac arrhythmia CHF exacerbation Brain aneurysm Anxiety Family history of brain aneurysm PAD (peripheral artery disease) PAF (paroxysmal atrial fibrillation) Obesity (BMI 30.0-34.9) Laceration of right middle finger Heart disease Diabetes History of cancer Fever HTN (hypertension) Diabetes mellitus type 2 in obese Chest pain, musculoskeletal HLD (hyperlipidemia) URI (upper respiratory infection) Bronchospasm with bronchitis, acute Current Diet Ordered: NPO Dentition: Natural Teeth Mental Status: Impaired (Acute confusion) Respiratory Status: Oxygenating on 2L/M nasal cannula (1L via nasal cannula) Penetration-Aspiration Scale Penetration-Aspiration Scale: OBJECTIVE ASSESSMENT OF SWALLOW FUNCTION (QUANTITATIVE ? PER TRIAL): PENETRATION / ASPIRATION SCALE (RUCKER): 1 = does not enter airway 2 = enters airway/above vocal folds/ejected 3 = enters airway/above vocal folds/not ejected 4 = enters airway/contacts vocal folds/ejected 5 = enters airway/contacts vocal folds/not ejected 6 = enters airway/below vocal folds/ejected 7 = enters airway/below vocal folds/not ejected despite effort 8 = enters airway/below vocal folds/no effort VIDEOFLOROSCOPIC SCALE SCORE (RUCKER): Grade I = aspiration of material that has penetrated into the laryngeal vestibule, intact cough reflex Grade II = aspiration < 10 % of the bolus, intact cough reflex Grade III = aspiration of < 10 % of the bolus, reduced cough reflex or aspiration of > 10 % of the bolus, intact cough reflex Grade IV = aspiration of > 10 % of the bolus, reduced cough reflex Penetration-Aspiration Scale Score Thin Liquid via teaspoon: Result: 5= enters airways/contacts vocal folds/not ejected Thin Liquid via teaspoon Trial 2: Result: 3= enters airways/above vocal folds/not ejected Thin Liquid via small single sip: cup: Result: 4= enters airway/contacts vocal folds/ejected [place] Thick Liquid via small single sip: cup: Result: 4= enters airway/contacts vocal folds/ejected (reflexive throat clear) [place] Thick Liquid via teaspoon: Result: 1= does not enter airway Pudding via teaspoon: Result: 1= does not enter airway Comment: Esophageal screen - Retention throughout the esophagus. [place] Thick Liquid via teaspoon Trial 2: Result: 2= enter airway/above vocal folds/ejected Comment: Esophageal screen - liquid wash was somewhat effective in clearing esophageal retention, moderate retention remained throughout the esophagus after liquid wash. 07/08 Cookie: Result: 1= does not enter airway Comment: Esophageal screen - Retention throughout the esophagus. [place] Thick Liquid via teaspoon Trial 3: Result: 1= does not enter airway Comment: Esophageal screen - This liquid wash, as well as an additional mildly thick liquid wash by tsp were not effective in clearing residues through the LES. [place] Thick Liquid via single sip: straw: Result: 2= enter airway/above vocal folds/ejected Comment: Esophageal screen - Liquid wash via straw was effective in clearing esophageal retention through the LES. [place] Thick Liquid via single sip: straw Trial 2: Result: 2= enter airway/above vocal folds/ejected Thin Liquid via teaspoon Trial 3: Result: 2= enter airway/above vocal folds/ejected Comment: Moderate verbal cues and modeling for chin tuck, pt unable to execute chin tuck. Thin Liquid via teaspoon Trial 4: Result: 1= does not enter airway Comment: Moderate verbal cues and modeling for chin tuck, pt unable to execute chin tuck. Thin Liquid via single sip: straw: Result: 2= enter airway/above vocal folds/ejected Thin Liquid via single sip: straw Trial 2: Result: 2= enter airway/above vocal folds/ejected Oral Phase Labial Seal: Interlabial escape, no progression to anterior lip Tongue Control During Bolus Hold: Posterior escape of greater than half of bolus Bolus Preparation/Mastication: Disorganized chewing/mashing with solid pieces of bolus unchewed Bolus Transport/Lingual Motion: Repetitive/disorganized tongue motion Oral Residue: Residue collection on oral structures Pharyngeal Phase Initiation of Pharyngeal Swallow: Bolus head in pyriforms Soft Palate Elevation: Escape to nasopharynx Laryngeal Elevation: Partial superior movement thyroid cart/partial apprx aryt-epig petiole Anterior Hyoid Excursion: Partial anterior movement Epiglottic Movement: Complete inversion Laryngeal Vestibule Closure at Height of Swallow: Incomplete; narrow column of air/contrast in laryngeal vestibule Pharyngeal Stripping Wave: Present - diminished Pharyngoesophageal Segment Opening: Parital distension and partial duration; parital obstruction of flow Tongue Base Retraction: Narrow column of contrast between tongue base & post. pharyngeal wall Pharyngeal Residue: Collection of residue within or on pharyngeal structures Esophageal Phase Esophageal Clearance: Esophageal retention w/ retrograde flow below pharyngoesophageal seg. Diagnosis/Impression Diagnosis: Moderate oropharyngeal dysphagia R13.12 MBS Impressions: The oral phase is primarily marked by... -Decreased bolus control w/ premature posterior loss of >1/2 of liquids to the pyriform sinuses prior to swallow onset. -Slowed, disorganized tongue motion for A-P transport. -Mild oral residue. -Decreased mastication of 1/4 cookie. The pharyngeal phase is primarily marked by... -Delayed swallow onset. -Decreased pharyngeal motility due to mildly decreased TB retraction, pharyngeal stripping wave, and UES opening/duration of opening w/ mild pharyngeal residues. -Decreased airway closure during the swallow due to decreased anterior hyoid excursion and laryngeal elevation. Deep laryngeal penetration of thin liquids by tsp to the vocal w/o complete ejection, increasing risk for post prandial aspiration. Deep laryngeal penetration of mildly thick liquids via cup to the vocal folds w/ reflexive throat clear and complete ejection. No aspiration observed during the MBSS. See PAS scores above for full details. The esophageal phase is primarily marked by... -Retention of pudding and cookie throughout the esophagus, which did not clear w/ tsp sips of mildly thick liquids; however, a single sip of mildly thick liquids by straw did effectively clear retention through the LES. Recommendations Diet: Soft and Bite Sized Textures and Mildly Thick Liquids Compensatory Strategies: Small Bites, Small Sips (One at a time), Sips by straw only, Slow Rate, Alternate bites/solids and sips/liquids (1:1 Ratio) and Sitting upright (During and 60min after po intake) Supervision: 1:1 Direct Supervision (Feeding assistance) Recommend Repeat Modified Barium Swallow: TBD Need for Skilled Speech Therapy Services: Yes Comment: -Train the patient in use of strategies to decrease risk for aspiration and reflux aspiration. -Ongoing assessment of diet tolerance of recommended textures. Trial thin liquids via straw w/ FAITH HEALER to consider diet advancement at bedside. -Train the patient in oropharyngeal exercise program (lingual resistance, lingual coordination, Elvia, CTAR, effortful). Recommended Referrals: GI Consult Education Completed: 1. Described result of evaluation. and 7. Pt requires further education on strategies & risks. Status Active ST Patient: Active Contact Information [facility] Speech Therapy:: Carolina Vazquez M.A. CCC-FAITH HEALER Speech-Language Pathologist [facility] [address] [place] [address] [phone]
--- NOTE | 2025-06-21 09:24 | CT_ITS ---
PROCEDURE: BRAIN/HEAD WITHOUT CONTRAST 06/21/2025 REASON FOR EXAM: ACUTE ENCEPHALOPATHY TECHNIQUE: Procedure Code: CTBR Modality: CT Procedure: BRAIN/HEAD WITHOUT CONTRAST Coronal and Sagittal reconstruction series were provided. One or more dose reduction techniques were used (e.g., Automated exposure control, adjustment of the mA and/or kV according to patient size, use of iterative reconstruction technique. RADIATION DOSE SUMMARY: CTDlvol: 44.99 mGy DLP: 829.85 mGycm COMPARISON: 06/20/2025 FINDINGS: Punctate calcification in posterior left temporal lobe, stable. Enlarged perivascular space versus old lacunar infarct left basal ganglia. Streak artifact from aneurysm clip at anterior communicating artery. Choroid plexus calcification. Mild asymmetric enlarged right lateral ventricle compared to left, stable and within normal limits. There is no extra-axial fluid collection. No evidence of acute intracranial hemorrhage. Mild brain atrophy. No region of mass effect or midline shift. No destructive skull lesion. The paranasal sinuses are well aerated. Under pneumatization of bilateral mastoid air cells. Evidence of right mastoidectomy. Bilateral scleral shawna. CT/Brain/Head without Contrast IMPRESSION: No acute intracranial process. Reading Location: [id number]
[2025-06-21] MEDS: 0.9% Normal Saline 1,000 ML IV.SOLN. 1000 ML OPERA.SITE (09:38)
[2025-06-21] MEDS: PureFlow B 2K Dialysis Soln 1 BAG 6 BAG PF (09:38)
--- NOTE | 2025-06-21 10:00 | CASEMGMT ---
Social Work Per physician, conversation was held with physician pt's Natanael, son Brayan and daughter in law Sultana to discuss goals of care. Physician states that pt's is not interested in hospice, but would like to consider palliative care and would like to meet with Gina, Palliative FLATWORK ASSEMBLER again. Gina did meet with pt's spouse regarding palliative care yesterday, and pt's spouse was not receptive to this visit and asked Gina to leave. In light of yesterday's interaction, SW met with pt's , son and dgt in law to discuss referral. SW introduced self and role of SW. SW addressed physicians request for Gina to meet with family again. Initially pt's states that he does not want to see Gina again. SW discussed options of palliative medicine, hospice care and rehabilitation at SNF. After continued discussion about patients wishes and goals of care, pt's family is agreeable to meet with Gina to discuss palliative medicine and is also requesting to discuss hospice options. Referral made to Gina who is agreeable to meet with pt's family again. ELISABETH Rothman
--- NOTE | 2025-06-21 10:43 | PCM.PN.PAL ---
Subjective Subjective 06/21/25: I was requested by SW and son to meet with the pt and family at bedside. I did agree and met with the son, daughter in law and , Natanael in pt room, to discuss the difference between palliative care services and hospice. I did provide them with the information and answered all questions. It is noted that the pt has elevated Ammonia, anasarca, jaundice and elevated B12. I reached out to Dr. Melissa about LFT's to assist with prognositication and to assist family with decisions. Pt is minimally responsive today. Son is concerned that his mother did not recognize him today. Daughter in law is wearing a shirt that says peace on it. She shared that Berta looked at the shirt and said peace, I am at peace. Patients daughter in law did come out to the [place] and asked if we can place a referral to [facility] so they can come out and present their services to Natanael and the rest of the family. She feels that he is close but is still struggling and it ay help to have hospice talk to him. Referral placed. Objective Data Objective Data Vital Signs: Vital Signs Temp Pulse Resp BP Pulse Ox O2 Del Method O2 Flow Rate 98.3 F 95 21 H 109/60 100 Nasal Cannula 1 06/21/25 09:30 06/21/25 10:30 06/21/25 10:30 06/21/25 10:30 06/21/25 10:30 06/21/25 10:30 06/21/25 10:30 Oxygen Flow Rate (L/min) 1 Oxygen Delivery Method Nasal Cannula Weight: 156 lb 15.506 oz Body Mass Index (BMI) 27.8 Intake & Output: Intake and Output for Last 24 Hours 06/19/25 06/20/25 06/21/25 23:59 23:59 23:59 Intake Total 681.80 / 681.80 100 / 100 Output Total 2300 / 2300 135 / 135 Balance -1618.20 / -1618.20 -35 / -35 Lab / Micro Data Attestation: I reviewed the patient's lab results. Lab results narrative: Dr. Melissa will be ordering LFT's 06/19/25 06:06 06/21/25 04:53 Labs: Laboratory Results - last 24 hr 06/20/25 11:30: Sodium 135, Potassium 5.0, Chloride 96 L, Carbon Dioxide 24.0, Anion Gap 15, BUN 39 H, Creatinine 3.66 H, Estim Creat Clear Calc 11.91 L, Est GFR (MDRD) Non-Af 12 L, BUN/Creatinine Ratio 10.7, Glucose 153 H, Calcium 8.9, Ammonia 78.5 H, Vitamin B12 1809 H, Serum Folate 13.10, TSH 4.410 H 06/20/25 11:43: POC Glucose 162 H 06/20/25 18:01: POC Glucose 163 H 06/20/25 21:33: POC Glucose 133 H 06/21/25 04:53: Sodium 133, Potassium 5.4 H, Chloride 95 L, Carbon Dioxide 23.2, Anion Gap 15, BUN 48 H, Creatinine 4.01 H, Estim Creat Clear Calc 10.87 L, Est GFR (MDRD) Non-Af 11 L, BUN/Creatinine Ratio 11.9, Glucose 118 H, Calcium 8.9, Random Vancomycin 19.7 H 06/21/25 07:54: POC Glucose 105 Micro: Microbiology 06/21/25 09:20 Nasal Secretion MRSA (PCR) - Final 06/17/25 22:00 Wound - Heel Right Gram Stain - Final 06/17/25 22:00 Wound - Heel Right Wound Culture - Final No growth aerobically. 06/17/25 22:00 Wound - Heel Right Skin and Soft Tissue MRSA/MSSA (PCR - Final Radiography Diagnostic Testing: Radiology Impression Brain CT 06/21/25 09:24 IMPRESSION: No acute intracranial process. Reading Location: [id number] Rhythm Strip Ectopy: PVC(s) Physical Exam Const Constitutional Narrative: pt is minimally responsive at this time. She is currently receiving dialysis Orientation / Consciousness: disoriented and lethargic Exam Limitations: altered mental status HEENT normocephalic Neck full ROM Lymph Lymphatic: lymphedema Resp Resp Narrative: diminished bilateral lung sounds Cardio Rate: tachycardic Rhythm: abnormal rhythm GI GI Narrative: anasarca Inspection: localized swelling Auscultation: hypoactive bowel sounds Narrative: perea with minimal output Bladder / Kidney Exam: catheter in place Skin Skin Narrative: pt is jaundice in appearance Neuro Sensorium / Orientation: lethargic and somnolent Psych Judgement: limited Charges/Coding Palliative Care Palliative Care: 47433 Follow up 50+ min Consulation Summary Current admission Current Code Status: DNRCC-A no intubation Associated Diagnosis: ESRD, AMS Consult Data Date of Consult: 06/20/25 Location of consult: ICU Reason for referral: goals of care Referral source: Dr. Ford Palliative care diagnosis (Summary list): ESRD, lethargic Palliative care services/treatment (Accepted, as consult): initially accepted but then they did request me to not come back Case discussed with referring provider: possible ordering of LFT's to assist with prognositication based on Ammonia level, elevated B12 and jaundice today. Palliative Assessment Advanced Directive - Current Admission Advance Directive: Advance Directive ON ADMISSION - REFERENCE Do you have a Healthcare Yes 06/17/25 18:41 Living Will? Is a Healthcare Living Will No, requested patient 06/17/25 18:41 present in the medical record? direct sales representative bring copy into [facility] Do you have a Healthcare Power Yes 06/17/25 18:41 of Bottom Man? Is a Healthcare Power of No, requested patient 06/17/25 18:41 Bottom Man present in the direct sales representative bring copy medical rec into [facility] Do You Want Additional Declined 06/17/25 18:41 Information on Advanced Directives or Healthcare Proxy/DPOA comments: Natanael Symptoms Dyspnea symptoms: Moderate Fatigue symptoms: Severe Weakness symptoms: Severe Confusion symptoms: Severe Impression & Recommendations Impressions Impressions: pt would benefit from hopsice as it does appear that she is requesting it. Son and daugher in law feel that hospice would be best but is not there yet. Recommentation Palliative recommendations: outpatient palliative care Encouter Achieved as a result of this Palliative Care Encounter: [[id number], [phone] ] minutes were spent in total for this visit which consisted, primarily of counseling and education dealing with the complex and emotionally intense issues of symptom management and palliative care in the setting of serious and potentially life-threatening illness. Review of documentation, labs and radiological studies. ?Patient/family had the opportunity to ask questions Plan (1) Shock: (2) Non-pressure chronic ulcer of right heel and midfoot with fat layer exposed: (3) Hx of acute congestive heart failure: (4) Pain in right foot: (5) History of atrial fibrillation: (6) Other specified peripheral vascular diseases: (7) Goals of care, counseling/discussion: (8) Palliative care encounter: PLAN: Plan * pt will need continued GOC discussions to find out what her wishes want versus family. *recommend palliative outpatient consult *family eeting today requested by son and daughter in law. was present. *family requesting informational meeting from hospice. ROS Review of Systems ROS Unobtainable: due to encephalopathy
--- NOTE | 2025-06-21 11:14 | PCM.PN.REN ---
Subjective Subjective Continues to have confusion. Ammonia elevated Objective Data Objective Data Vital Signs: Vital Signs Temp Pulse Resp BP Pulse Ox O2 Del Method O2 Flow Rate 98.3 F 102 H 22 H 132/50 H 100 Nasal Cannula 1 06/21/25 09:30 06/21/25 10:45 06/21/25 10:45 06/21/25 10:45 06/21/25 10:45 06/21/25 10:45 06/21/25 10:45 Oxygen Flow Rate (L/min) 1 Oxygen Delivery Method Nasal Cannula Weight: 71.2 kg Body Mass Index (BMI) 27.8 Intake & Output: Intake and Output for Last 24 Hours 06/19/25 06/20/25 06/21/25 23:59 23:59 23:59 Intake Total 681.80 / 681.80 100 / 100 Output Total 2300 / 2300 135 / 135 Balance -1618.20 / -1618.20 -35 / -35 Lab / Micro Data 06/19/25 06:06 06/21/25 04:53 Labs: Laboratory Results - last 24 hr 06/20/25 11:30: Sodium 135, Potassium 5.0, Chloride 96 L, Carbon Dioxide 24.0, Anion Gap 15, BUN 39 H, Creatinine 3.66 H, Estim Creat Clear Calc 11.91 L, Est GFR (MDRD) Non-Af 12 L, BUN/Creatinine Ratio 10.7, Glucose 153 H, Calcium 8.9, Ammonia 78.5 H, Vitamin B12 1809 H, Serum Folate 13.10, TSH 4.410 H 06/20/25 11:43: POC Glucose 162 H 06/20/25 18:01: POC Glucose 163 H 06/20/25 21:33: POC Glucose 133 H 06/21/25 04:53: Sodium 133, Potassium 5.4 H, Chloride 95 L, Carbon Dioxide 23.2, Anion Gap 15, BUN 48 H, Creatinine 4.01 H, Estim Creat Clear Calc 10.87 L, Est GFR (MDRD) Non-Af 11 L, BUN/Creatinine Ratio 11.9, Glucose 118 H, Calcium 8.9, Random Vancomycin 19.7 H 06/21/25 07:54: POC Glucose 105 Micro: Microbiology 06/21/25 09:20 Nasal Secretion MRSA (PCR) - Final 06/17/25 22:00 Wound - Heel Right Gram Stain - Final 06/17/25 22:00 Wound - Heel Right Wound Culture - Final No growth aerobically. 06/17/25 22:00 Wound - Heel Right Skin and Soft Tissue MRSA/MSSA (PCR - Final Radiography Diagnostic Testing: Radiology Impression Brain CT 06/21/25 09:24 IMPRESSION: No acute intracranial process. Reading Location: [facility] Rhythm Strip Ectopy: PVC(s) Physical Exam Narrative no obvious distress no pallor no icterus no JVD s1s2 no murmurs lungs clear abdomen soft no organomegaly no edema Assessment & Plan Assessment/Plan (1) MONIQUE (acute kidney injury): PLAN: Acute renal failure CKD stage IV History of congestive heart failure Continue dialysis as per schedule. Palliative care consult today to discuss ongoing goals of care 06/21/2025. Somewhat confused. Ammonia elevated. Doubt this is uremia since she has been on dialysis regularly. Will plan for slightly longer treatment to see if we can get better clearance.
--- NOTE | 2025-06-21 11:44 | NURSING ---
Spoke with , son, and daughter in law at length about pt's condition and outcome per physician reports. Discussed continuing current treatment plan, palliative care, and hospice. After discussing all options, family has decided to go home with hospice and stop dialysis at this time. Pt's and son requests that this RN stop dialysis treatment at this time.
[2025-06-21 11:48] LABS: AST(SGOT) 29 U/L (<=31); Alanine Aminotransfer ALT/SGPT 10 U/L (<=34); Albumin, Serum 3.2 g/dL (3.4-4.8); Alkaline Phosphatase 94 U/L (35-104); Bilirubin, Direct 0.61 mg/dL (0.00-0.30); Globulin 3.5 g/dL (2.2-4.2)
--- NOTE | 2025-06-21 11:50 | CASEMGMT ---
Social Work ANDREWS spoke with Gina, palliative CLINICAL LABORATORY SERVICE TEACHER who states family is now requesting to take pt home with hospice care. ANDREWS met with pt's , son and DIL who confirm wishes to speak with hospice about dc home. DIL would like to be personnel technician to set up meeting with hospice. Referral sent via secure email to [facility] requesting they set up time to meet with pt DIL. ELISABETH Neal
[2025-06-21] MEDS: Heparin Injection (Vial) 5,000 UNIT/ML VIAL 5000 UNIT SC ×2 (14:06→22:24)
[2025-06-21] MEDS: Ampicillin/Sulbactam 3 GM in 0.9% Normal Saline (100mL MB+) 100 ML IV (14:07)
--- NOTE | 2025-06-21 14:33 | CASEMGMT ---
Social Work Meeting set with pt's family and [facility] for 8:30 am Wednesday morning. Nurse, physician, and Palliative PSYCHIATRIC SECRETARY notified. ELISABETH Neal
[2025-06-21] MEDS: levETIRAcetam IV 2,000 MG in 0.9% Normal Saline (250mL Bag) 230 ML 1000 MG IV (16:24)
--- NOTE | 2025-06-21 16:42 | NURSING ---
RN notified hospice meeting is set for tomorrow at 0830 am. Patient transferred to bed 315. Natanael and daughter in law called for updated room status.
[2025-06-21] MEDS: 0.9% Saline Lock 10 ML Syringe IV (16:56)
[2025-06-22 05:45] VITALS: BMI 27.5
--- NOTE | 2025-06-22 07:00 | WOUNDNOTE ---
Pt resting in bed with eyes closed. present at bedside and states he stayed all night with patient. states she has appeared comfortable. heels are elevated up off the bed. states the plan is to meet with hospice this am and hopefully be discharge home with hospice care today. Pt tearful stating I'm not ready to lose her, but I know I am. comforted. denies further needs and states appreciation.
[2025-06-22 07:36] VITALS: O2SAT 98
[2025-06-22 07:54] VITALS: BP 126/67; PULSE 109; RESP 18; TEMP 36.5; O2SAT 100
[2025-06-22] MEDS: Heparin Injection (Vial) 5,000 UNIT/ML VIAL 5000 UNIT SC (09:50)
--- NOTE | 2025-06-22 10:32 | DCINST_ITS ---
Discharge Instructions DC O2, CPAP, BIPAP needs Home O2 Discharge instructions: Yes Type of respiratory needs?: Oxygen Oxygen frequency: Continuous Continuous oxygen liters per minute: 2 Follow Up Care Test Results: Test results from this visit will be discussed in further detail at your follow- up appointment, if applicable. Discharge Plan Admission Admit Date/Time: 06/17/25 17:11 Primary Reason for Your Visit: Home hospice care Attending Provider: Imtiaz Melissa Primary Care Provider: Vincent Flores Chi Consulting Providers: Erick Carbajal; Jeremy Mcgarry; Pancho Caruso; Deangelo Andrews; Lane Valadez; Deven Rincon; Luis Hart; Ananda Blanchard; Vielka Driscoll; Neto Bustamante; Maritza Anaya; Donn Poole; Kat Riggins; Matt Zuniga; Joseph Vick; Heidi Bee; Guzman Boss; Denis Schroeder; Byron Chung; Kina Pittman; Nayana Lee; Cosmo Lozada; Janny Greer; Mikie Krause; Dylon Mukherjee; Elinor Camarillo; Deborah Youngblood; Cruz Conroy; Lili Parra; Elinor Flores; Tha Benton; Rajendra Morris; Jerman Isaac; Elliott Ross; Hari Murillo; Dana,Johnny; Rick Appiah; Paulo,Rissa; Christelle,Kellee; Ann,Samih; Clark Phillips; Zakiya,Wm; Juan Badillo; Chacho Carter; Mars Clark; Reed Turcios; Lindsey Francisco; Charley Berger; Renita Ayala; Zachary Marino; Jose John; Silver Brewster; PAULINE SENA; Karyna Gustafson; Chelsi Pulido; Ori Garcia; Rachel Crooks; Teo Blue; Yamileth Hassan; Josefina Arrieta; Tacos Edouard; Sydney Jarvis; Marty Hopkins; Tai Chavez; Ana Rosa Taylor; Panda Hein; Lili Newman; Zainjesse Jesus Alberto; Jonathan Funez; Red Lucia; Gurpreet Geronimo; Noris Brock; Jessa Lee; Gina Guan; Ananda Webb; Ignacia Gray; Luli Allison; Chetna Rowe; Lizz Cardenas NP; Giovanna Mujica Discharge Orders/Prescriptions Prescriptions: New acetaminophen 500 mg Tablet 1,000 mg PO Q8 Qty: 0 0RF lactulose 10 gram/15 mL Solution 10 g PO TID PRN (Reason: CONSTIPATION) Qty: 3785 0RF sennosides-docusate sodium [Stimulant Laxative Plus] 8.6-50 mg Tablet 2 tab PO BID Qty: 0 0RF pantoprazole 40 mg Tablet,Delayed Release (Dr/Ec) 40 mg PO DAILY Qty: 0 0RF Continued vitamin B complex Tablet 1 tab PO QDAY metoprolol succinate 50 mg tablet extended release 24 hr 50 mg PO BID polysaccharide iron complex [Ferrex 150] 150 mg iron capsule 150 mg PO QDAY ascorbic acid (vitamin C) 500 mg tablet 500 mg PO QDAY aspirin [Adult Aspirin Regimen] 81 mg tablet,delayed release (DR/EC) 81 mg PO QDAY levothyroxine 50 mcg tablet 50 mcg PO DAILY atorvastatin 40 mg tablet 40 mg PO DAILY pantoprazole 40 mg tablet,delayed release (DR/EC) 40 mg PO QDAY Referrals / Follow Up: Vincent Flores Chi, MD [Primary Care Provider, Geriatrics] Disposition Disposition (needs filled in before D/C Order can be placed): Hospice in Home
--- NOTE | 2025-06-22 10:40 | PCM.DC.SUM ---
Providers Date of Admission: 06/17/25 Date of Discharge: 06/22/25 Primary Care Physician: Dr. Vincent Flores MD Consultations 06/17/25 17:28 Consult: Podiatry Routine Consulting Provider: Pancho Caruso Reason for Consult: right heel infection EMERGENT Consult: No MD Notified: Yes Date Notified: 06/17/25 Time Notified: 17:30 Method of Notification: ED Physician Initiated 06/17/25 17:29 Consult: Onc/Wound/mason foreman/superintendant Routine Comment: 06/17/25 17:30 Consult: Infectious Disease Routine Consulting Provider: Erick Carbajal Reason for Consult: right heel infection, osteomyelitis EMERGENT Consult: No MD Notified: Yes Date Notified: 06/17/25 Time Notified: 17:30 Method of Notification: Text 06/17/25 18:03 Consult: Nephrology Routine Consulting Provider: Jeremy Mcgarry Reason for Consult: ESRD on TTS EMERGENT Consult: No MD Notified: Yes Date Notified: 06/17/25 Time Notified: 17:33 Method of Notification: Text 06/17/25 20:17 Consult: Experimental Preflight Mechanic / Pulmonary Medicine Routine Consulting Provider: Intensivists/Pulmonary Med Reason for Consult: Suspect septic, osteomyelitis, hypotensive. EMERGENT Consult: No MD Notified: Yes Date Notified: 06/17/25 Time Notified: 19:20 Method of Notification: Verbal 06/18/25 14:37 Consult: Vascular Surgery Routine Consulting Provider: Reed Turcios Reason for Consult: moderate PAD in B/L legs/feet, right heel ulcer EMERGENT Consult: No MD Notified: Yes Date Notified: 06/18/25 Time Notified: 14:38 Method of Notification: Verbal 06/20/25 09:13 Consult: Tele-Neurology Routine Consulting Provider: [facility] Reason for Consult: confusion, worsening EMERGENT Consult: No MD Notified: Yes Date Notified: 06/20/25 Time Notified: 11:17 Method of Notification: Answering Service Nursing Unit Staff Notify [facility] of Tele-Neurology Consult: Yes 06/20/25 09:57 Consult: Inpatient Palliative Care Routine Consulting Provider: Gina Guan Reason for Consult: HF, ESRD EMERGENT Consult: No MD Notified: Yes Date Notified: 06/20/25 Time Notified: 09:57 Method of Notification: Verbal 06/21/25 11:05 Consult: Hospice / Outpatient Palliative Care Routine Consulting Provider: [facility] Reason for Consult: family wants information. Pt is ready is not. EMERGENT Consult: Yes MD Notified: Yes Date Notified: 06/21/25 Time Notified: 11:05 Method of Notification: Text Reason For Visit: RIGHT FOOT ULCER Diagnosis Discharge Diagnosis (1) MONIQUE (acute kidney injury): Status: Inactive Code(s): N17.9 - Acute kidney failure, unspecified Plan This entire female is being admitted for acute on chronic osteomyelitis of right heel 1. Shock possible undifferentiated/distributive shock, exact etiology unclear: X-ray of right foot on 06/23/2025 reviewed. It is reported as a lytic lesion involving the distal medial aspect of first metatarsal bone measuring 13.6 x 6 mm in transverse dimension. This lytic lesion appears a sclerotic margin with soft tissue swelling. Bone demineralization present. ESR and CRP are elevated. Mild leukocytosis. Patient is started on IV vancomycin and Zosyn. Patient on cisco administrator at 1 time 89 systolic but not charted. Monitor BP. IV fluid Ringer lactate 1 L ordered as patient is dehydrated. MRI of right foot ordered. 06/18: Overnight the patient remained hypotensive, SBP 83. Indicators of sepsis of renal dysfunction or hypotension, SBP less than 90, MAP less than 65 lactic acidosis leukocytosis with left shift. Lactic acid 3.1. Required vasopressor and hence transferred to ICU. Repeat lactic acid came 1.9 normal range. Patient maintaining blood pressure on Levophed 5 mcg/min. Discussed with catalog librarian and he thinks right heel does not have underlying point of infection/pus. The lytic/punched-out lesion in the first metatarsal is more from previous gout. He does not think patient has osteomyelitis but MRI foot is ordered. If MRI cannot be done then 3 phase bone scan. Bone scan is sensitive but not specific as MRI for osteomyelitis with leukocytosis with immature granulocytes 1.1%. Experimental Preflight Mechanic consulted. 06/19: Patient going for bony scan. Earlier MRI was canceled because patient has wire in the brain. Still on low-dose vasopressin 06/20 bone scan was negative for osteomyelitis. 06/21: Patient maintaining blood pressure. On midodrine 06/22 patient is going home with hospice care. BP 126/67. Midodrine discontinued as she is going to hospice and BP normal. Discussed with ice cream dipper and ID. Sepsis ruled out. No focus of infection found. Antibiotic discontinued after discussion with ID. Acute encephalopathy, exact etiology unclear: Neurologist recommended MRI brain but had intra-arterial coiling. 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 Pending ammonia elevated. B12 high. TSH 4.4 borderline elevation. Lactulose started. Repeat CT head after 24 hours 06/22: Patient is still encephalopathic but she talks to her . Repeat CT does not show acute intracranial abnormality. 2. Chronic HFpEF with right ventricular failure and moderate pulmonary hypertension: Chest x-ray done which shows cardiomegaly, pacemaker. Not suggestive of fluid overload but was admitted in first week of June for anasarca. Patient on metoprolol succinate, baby aspirin and atorvastatin continued. 2D echo in June 2025 shows EF 50% with normal ventricular size but moderately dilated RV, PASP 62 mmHg 06/19: Hold metoprolol 06/20: On 3 L of oxygen. BP 111/51. Sinus rhythm 06/21: Paced rhythm. Heart rate 96/min. 3. Chronic A-fib status post Watchman device: Patient not on anticoagulation due to history of GI bleed and Watchman device. Continue metoprolol. 4. Suspected PAD: Lower extremity arterial study ordered. Skin of right lower leg is thickened, pale and nonblanchable. Decreased pulsation of right posterior tibial and dorsalis. 06/21: Had vascular surgery consult. No signs of acute ischemia or critical ischemia or indication for urgent vascular intervention. Moderate PAD with diabetes. Medical management on aspirin and statin 5. DM type II: Her denies DM type II but glucose 129 mg/dL. Last A1c 7.8% suggestive of DM type II. Accu-Chek before meals and at bedtime with Humalog sliding scale coverage and hypoglycemia protocol. 6. Chronic chest flail: No acute issues 7. ESRD on hemodialysis: Wednesday and Wednesday. Casting Supervisor was consulted on admission. Patient has Vaughn catheter. Usually she makes some urine but no urine in Vaughn catheter since last night 06/19: 2 days of dialysis day 06/20: Patient to had dialysis yesterday. Generalized swelling of upper thigh, lower abdominal wall subcutaneous tissue. 06/21: Mild hyperkalemia, potassium hemolyzed. Due for dialysis today. Repeat BMP after 1 to 2 hours of completion of dialysis. Discussed with the dialysis nurse 8. Anemia of chronic disease most likely due to ESRD: Patient hemoglobin fluctuates between 9 to 10 g. On PPI. Monitor CBC. On iron supplement 06/20 hemoglobin 9.6. DVT prophylaxis on heparin 5000 subcutaneous twice daily Living will/advanced directive/end of life care: Patient does have living will or advanced directive. Patient's present in the ED and is power of immigration attorney for health. After discussion of benefits/risks procedures involved with full code, DNR CC arrest and DNR CC, the patient and her opted for DNR CC arrest with no intubation Patient doesn't want artificial life support including intubation, tube feed, ventilator and/chest compression, and DC shock if needed but OK with central venous catheter and, vasopressor Discharge medication reconciliation done. Discharge follow-up instructions completed. Discharge process discussed with the patient and all questions were answered to patient's satisfaction. Follow with PCP in 1 to 2 weeks Total time spent, exact 35 minutes on discharge meds reconciliation, examination, coordination of care with nurses and ancillary staff, review of imaging and blood test and discussion with the patient on follow-up instructions. Medications at Discharge Home Medications atorvastatin 40 mg tablet 40 mg PO DAILY daily 01/07/25 metoprolol succinate 50 mg tablet,extended release 24 hr 50 mg PO BID blood pressure 02/05/25 vitamin B complex 1 tab PO QDAY supplement 02/05/25 ascorbic acid (vitamin C) 500 mg tablet 500 mg PO QDAY supplement 02/14/25 aspirin 81 mg tablet,delayed release (Adult Aspirin Regimen) 81 mg PO QDAY heart health 02/14/25 pantoprazole 40 mg tablet,delayed release 40 mg PO QDAY stomach 02/14/25 polysaccharide iron complex 150 mg iron capsule (Ferrex) 150 mg PO QDAY low iron 02/14/25 levothyroxine 50 mcg tablet 50 mcg PO DAILY thyroid 03/01/25 acetaminophen 500 mg tablet 1,000 mg (2 x 500 mg) PO Q8 #0 tabs 06/22/25 lactulose 10 gram/15 mL oral solution 10 g (15 mL) PO TID PRN CONSTIPATION #3,785 mL 06/22/25 pantoprazole 40 mg tablet,delayed release 40 mg PO DAILY #0 tabs 06/22/25 sennosides 8.6 mg-docusate sodium 50 mg tablet (Stimulant Laxative Plus) 2 tab PO BID #0 tabs 06/22/25 Physical Exam Narrative Seen in exam Patient is still confused sometimes mumbles words with her . Gross aphasia She has right foot pain. Physical exam: General: Confused today. Disoriented. Lethargic, sleepy, eyes closed HEENT:Uses hearing aid. Atraumatic, PERRLA, EOMI, Normocephalic. Oral: Oral mucosa dry. No Gingival or Mucosal Lesions/ Ulcerations Neck: Supple, No JVD, Negative Carotid Bruits Chest wall/Lungs: Air entry diminished in bilateral lung bases. No crepitation/rhonchi Cardiovascular: Regular paced rhythm, Normal S1,S2, No M/G/R. Decreased pulse in right popliteal and dorsalis pedis Abdomen: Bowel Sounds Present, Soft, Non Tender, Non-Distended : No dysuria. Right permacath but hemodialysis on hold as opted hospice. No renal angle tenderness. No suprapubic tenderness. Extremities: Bilateral upper thigh subcutaneous edema. Skin: Right heel ulcer, nonblanching skin, pale and thickened skin of right lower leg ventral aspect. Ulcer in the upper mid thoracic spine superficial Musculoskeletal: Tenderness to the right foot/heel. No Tenderness to Palpation of Joints or Extremities Neurological: DTR 2/4. No acute focal neurological deficit. Psych/Mental Status: Flat affect, confused Weight / BMI Weight Weight: 155 lb 3.287 oz Body Mass Index (BMI) 27.5 ABG / Lab / Microbiology Data 06/19/25 06:06 06/21/25 04:53 Laboratory: Laboratory Results - last 24 hr 06/21/25 11:00: Total Bilirubin 0.82, Direct Bilirubin 0.61 H, AST 29, ALT 10, Alkaline Phosphatase 94, Total Protein 6.7, Albumin 3.2 L, Globulin 3.5 06/21/25 11:31: POC Glucose 98 06/21/25 16:26: POC Glucose 101 06/21/25 22:08: POC Glucose 96 06/22/25 06:46: POC Glucose 89 Microbiology: Microbiology 06/21/25 09:20 Nasal Secretion MRSA (PCR) - Final 06/17/25 22:00 Wound - Heel Right Gram Stain - Final 06/17/25 22:00 Wound - Heel Right Wound Culture - Final No growth aerobically. 06/17/25 22:00 Wound - Heel Right Skin and Soft Tissue MRSA/MSSA (PCR - Final D/C Instructions DC O2, CPAP, BIPAP Needs Home O2 Discharge instructions: Yes Type of respiratory needs?: Oxygen Oxygen frequency: Continuous Continuous oxygen liters per minute: 2 DC home with Oxygen: Yes Home O2 MD Review: I have reviewed the oxygen testing, and the patient qualifies for home oxygen equipment and portability. The patient is mobile in the home and the community. Meaningful Use Info Meaningful Use Meaningful Use Diagnoses (Choose all that apply): None applicable Discharge Plan Admission Admit Date/Time: 06/17/25 17:11 Primary Reason for Your Visit: Home hospice care Attending Provider: Imtiaz Melissa Primary Care Provider: Vincent Flores Chi Consulting Providers: Ercik Carbajal; Jeremy Mcgarry; Pancho Caruso; Deangelo Andrews; Lane Valadez; Deven Rincon; Luis Hart; Ananda Blanchard; Vielka Driscoll; Neto Bustamante; Maritza Anaya; Donn Poole; Kat Riggins; Matt Zuniga; Joseph Vick; Heidi Bee; Guzman Vo; Denis Schroeder; Byron Chung; Kina Pittman; Nayana Lee; Cosmo Lozada; Janny Greer; Mikie Krause; Dylon Mukherjee; Elinor Camarillo; Deborah Youngblood; Cruz Conroy; Lili Parra; Elinor Flores; Tha Benton; Rajendra Morris; Jerman Isaac; Elliott Edwards; Hari Murillo; Johnny Cortez; Rick Appiah; Rissa Bates; Kellee Bourgeois; Jeromy Juarez; Clark Phillips; Zakiya,Wm; Juan Badillo; Chacho Carter; Mars Clark; Reed Turcios; Lindsey Francisco; Charley Berger; Renita Ayala; Zachary Marino; Jose John; Silver Brewster; PAULINE SENA; Karyna Gates; Chelsi Pulido; Ori Garcia; Rachel Crooks; Teo Blue; Yamileth Hassan; Josefina Arrieta; Tacos Edouard; Sydney Jarvis; Marty Hopkins; Tai Chavez; Ana Rosa Taylor; Panda Hein; Lili Newman; Tulio Pittman; Jonathan Funez; Red Lucia; Gurpreet Geronimo; Noris Brock; Jessa Lee; Gina Guan; Ananda Webb; Ignacia Gray; Luli Allison; Chetna Rowe; Lizz Cardenas NP; Giovanna Mujica Discharge Orders/Prescriptions Prescriptions: New acetaminophen 500 mg Tablet 1,000 mg PO Q8 Qty: 0 0RF lactulose 10 gram/15 mL Solution 10 g PO TID PRN (Reason: CONSTIPATION) Qty: 3785 0RF sennosides-docusate sodium [Stimulant Laxative Plus] 8.6-50 mg Tablet 2 tab PO BID Qty: 0 0RF pantoprazole 40 mg Tablet,Delayed Release (Dr/Ec) 40 mg PO DAILY Qty: 0 0RF Continued vitamin B complex Tablet 1 tab PO QDAY metoprolol succinate 50 mg tablet extended release 24 hr 50 mg PO BID polysaccharide iron complex [Ferrex 150] 150 mg iron capsule 150 mg PO QDAY ascorbic acid (vitamin C) 500 mg tablet 500 mg PO QDAY aspirin [Adult Aspirin Regimen] 81 mg tablet,delayed release (DR/EC) 81 mg PO QDAY levothyroxine 50 mcg tablet 50 mcg PO DAILY atorvastatin 40 mg tablet 40 mg PO DAILY pantoprazole 40 mg tablet,delayed release (DR/EC) 40 mg PO QDAY Referrals / Follow Up: Vincent Flores Chi, MD [Primary Care Provider, Geriatrics] Disposition Disposition (needs filled in before D/C Order can be placed): Hospice in Home Charges/Coding Visit Charges Inpatient E&M: 12434 Disch Hosp >30min
--- NOTE | 2025-06-22 11:17 | CASEMGMT ---
Social Work- SW coordinated with hospice nurse from [facility]. Pt will have equipment delivered and hospice has set transport for 16:00. Hospitalist updated. ELISABETH Mejia
--- NOTE | 2025-06-22 11:25 | PHA.DC.MR.R ---
Pharmacy [place] Med Reconciliation Pharmacy Service has performed discharge medication reconciliation for this patient. The patient's discharge medication list was reviewed for discrepancies and discrepancies were resolved. Medications at Discharge Home Medications atorvastatin 40 mg tablet 40 mg PO DAILY daily 01/07/25 metoprolol succinate 50 mg tablet,extended release 24 hr 50 mg PO BID blood pressure 02/05/25 vitamin B complex 1 tab PO QDAY supplement 02/05/25 ascorbic acid (vitamin C) 500 mg tablet 500 mg PO QDAY supplement 02/14/25 aspirin 81 mg tablet,delayed release (Adult Aspirin Regimen) 81 mg PO QDAY heart health 02/14/25 pantoprazole 40 mg tablet,delayed release 40 mg PO QDAY stomach 02/14/25 polysaccharide iron complex 150 mg iron capsule (Ferrex) 150 mg PO QDAY low iron 02/14/25 levothyroxine 50 mcg tablet 50 mcg PO DAILY thyroid 03/01/25 acetaminophen 500 mg tablet 1,000 mg (2 x 500 mg) PO Q8 #0 tabs 06/22/25 lactulose 10 gram/15 mL oral solution 10 g (15 mL) PO TID PRN CONSTIPATION #3,785 mL 06/22/25 pantoprazole 40 mg tablet,delayed release 40 mg PO DAILY #0 tabs 06/22/25 sennosides 8.6 mg-docusate sodium 50 mg tablet (Stimulant Laxative Plus) 2 tab PO BID #0 tabs 06/22/25
--- NOTE | 2025-06-22 14:08 | CASEMGMT ---
DOUG MOSES note: DOUG MOSES spoke w/Federica @ [facility]. She was made aware pt is discharging home today on Hospice. Cesilia LOPEZ RN, CM
[2025-06-22 14:28] VITALS: BP 114/64; PULSE 110; RESP 20; TEMP 36.6; O2SAT 97
--- NOTE | 2025-06-22 14:29 | PN.SURG_ITS ---
Subjective Subjective Patient is a 79-year-old female seen at bedside today for evaluation of bilateral heel wounds. Patient is currently on hospice. Objective Data Objective Data Vital Signs: Vital Signs Temp Pulse Resp BP Pulse Ox O2 Del Method O2 Flow Rate 97.9 F 110 H 20 H 114/64 97 Room Air 2 06/22/25 14:28 06/22/25 14:28 06/22/25 14:28 06/22/25 14:28 06/22/25 14:28 06/22/25 14:28 06/22/25 08:47 Oxygen Flow Rate (L/min) 2 Oxygen Delivery Method Room Air Weight: 70.4 kg Body Mass Index (BMI) 27.5 Intake & Output: Intake and Output for Last 24 Hours 06/20/25 06/21/25 06/22/25 23:59 23:59 23:59 Intake Total 100 / 100 450 / 450 160 / 160 Output Total 135 / 135 730 / 730 0 / 0 Balance -35 / -35 -280 / -280 160 / 160 Lab / Micro Data 06/19/25 06:06 06/21/25 04:53 Labs: Laboratory Results - last 24 hr 06/21/25 16:26: POC Glucose 101 06/21/25 22:08: POC Glucose 96 06/22/25 06:46: POC Glucose 89 06/22/25 10:56: POC Glucose 95 Micro: Microbiology 06/21/25 09:20 Nasal Secretion MRSA (PCR) - Final 06/17/25 22:00 Wound - Heel Right Gram Stain - Final 06/17/25 22:00 Wound - Heel Right Wound Culture - Final No growth aerobically. 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 Otherwise, no CT evidence of acute intracranial hemorrhage or infarct. Reading Location: [id number] Rhythm Strip Ectopy: PVC(s) Physical Exam Narrative Neurovascular status is unchanged. +1 pitting edema to the bilateral lower extremity. Bilateral heels are stable with no sign of infection. Neck Neck Narrative: R IJ tunneled catheter in place Neuro Sensorium / Orientation: lethargic Assessment & Plan Assessment/Plan (1) Non-pressure chronic ulcer of right heel and midfoot with fat layer exposed: PLAN: Patient was examined evaluated. All findings were discussed with the patient. All questions were answered to the patient's faction. At the time of interview the patient is still unresponsive. I did discuss with the father about hospice and beginning to plan possible end-of-life care which she is understanding of but feels that his will make a recovery. From a podiatry standpoint they can continue treatment with Betadine paint to the bilateral heels and offload with pillows. Since the patient is hospice I recommend leaving the patient at home with the same orders as a hospital. Podiatry will sign off and follow from a distance. If there are any questions or concerns please reach out to Dr. Caruso. (2) Other specified peripheral vascular diseases: (3) Osteoarthritis of right ankle: (4) Gout: QUALIFIERS: Gout site: ankle Chronicity: chronic Laterality: r ight Charges/Coding Visit Charges Inpatient E&M: 59947 Subs Hosp L1
[2025-06-22 15:23] VITALS: O2SAT 97
== END 2025-06-22 16:10 | disposition hospice, home (50) | DRG 539 ==
LOC: ED 16:25 → PCU 18:24 → ICU 20:04 → MS3 06-21 16:46
PROVIDERS: Family Medicine; Internal Medicine Critical Care Medicine; Internal Medicine Infectious Disease; Podiatrist Foot & Ankle Surgery; Admitting Provider Internal Medicine; Emergency Provider Emergency Medicine; PCP Family Medicine Geriatric Medicine; Visit Provider Internal Medicine
DX: M86.171 Other acute osteomyelitis, right ankle and foot (principal); N18.6 End stage renal disease; R57.8 Other shock; G92.8 Other toxic encephalopathy; I13.2 Hypertensive heart and chronic kidney disease with heart failure and with stage 5 chronic kidney disease, or end stage renal disease; E87.20 Acidosis, unspecified; I48.20 Chronic atrial fibrillation, unspecified; L97.412 Non-pressure chronic ulcer of right heel and midfoot with fat layer exposed; I50.32 Chronic diastolic (congestive) heart failure; L97.422 Non-pressure chronic ulcer of left heel and midfoot with fat layer exposed; N17.9 Acute kidney failure, unspecified; N39.0 Urinary tract infection, site not specified; D63.1 Anemia in chronic kidney disease; L89.610 Pressure ulcer of right heel, unstageable; E86.0 Dehydration; E11.69 Type 2 diabetes mellitus with other specified complication; M06.9 Rheumatoid arthritis, unspecified; I27.20 Pulmonary hypertension, unspecified; Z95.2 Presence of prosthetic heart valve; E11.22 Type 2 diabetes mellitus with diabetic chronic kidney disease; Z99.2 Dependence on renal dialysis; I34.0 Nonrheumatic mitral (valve) insufficiency; K21.9 Gastro-esophageal reflux disease without esophagitis; E78.5 Hyperlipidemia, unspecified; E11.51 Type 2 diabetes mellitus with diabetic peripheral angiopathy without gangrene; E11.621 Type 2 diabetes mellitus with foot ulcer; I50.812 Chronic right heart failure; I95.9 Hypotension, unspecified; M10.9 Gout, unspecified; M19.071 Primary osteoarthritis, right ankle and foot; E87.5 Hyperkalemia; G89.29 Other chronic pain; Z51.5 Encounter for palliative care; I49.3 Ventricular premature depolarization; T40.2X5A Adverse effect of other opioids, initial encounter; H91.90 Unspecified hearing loss, unspecified ear; R13.12 Dysphagia, oropharyngeal phase; M95.4 Acquired deformity of chest and rib; Z95.0 Presence of cardiac pacemaker; Z79.82 Long term (current) use of aspirin; Z85.41 Personal history of malignant neoplasm of cervix uteri; Z87.19 Personal history of other diseases of the digestive system; Z79.899 Other long term (current) drug therapy; Z87.891 Personal history of nicotine dependence
CPT/HCPCS: 36415; 70450; 71045; 74230; 78315; 80048; 80076; 80202; 81001; 82140; 82550; 82607; 82746; 82962; 83036; 83605; 83735; 83880; 84443; 84550; 85025; 85610; 85652; 85730; 86140; 87040; 87070; 87205; 87640; 87641; 90937; 92610; 92611; 93005; 93923; 94762; 95819; 97167; 99284; A9503; A4216; G0257; J0295; J2405